=== PATIENT | male | born 1965 | race Caucasian/White ===

== ENCOUNTER → 2025-07-25 05:00 | Outpatient (REF) | payer MEDICARE, SELFPAY ==
--- OUTSIDE RECORDS SUMMARY | 2025-07-25 05:16 | XMS RPT_ITS | CCD ---
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 Unavailable Unavailable Exten, Sb L. Unavailable Unavailable Exten, Sb L. Unavailable Unavailable Exten, Sb L. Unavailable Unavailable Brar, Memo E Unavailable Unavailable Brar, Memo E Unavailable Unavailable Exten, Sb L. Unavailable Unavailable Exten, Sb L. Unavailable Unavailable Kinsey, Riaz S Unavailable Unavailable John, Riaz S Unavailable Unavailable Brar, Memo E Unavailable Unavailable Brar, Memo E Unavailable Unavailable Brar, Memo E Unavailable Unavailable Brar, Memo E Unavailable Unavailable Brar, Memo E Unavailable Unavailable Brar, Memo E Unavailable Unavailable Stadnick, Paulino S Unavailable Unavailable Stadnick, Paulino S Unavailable Unavailable Stadnick, Paulino S Unavailable Unavailable Stadnick, Paulino S Unavailable Unavailable Brar, Memo E Unavailable Unavailable Brar, Memo E Unavailable Unavailable Exten, Sb L. Unavailable Unavailable Exten, Sb L. Unavailable Unavailable Exten, Sb L. Unavailable Unavailable Exten, Sb L. Unavailable Unavailable Brar, Memo E Unavailable Unavailable Brar, Memo E Unavailable Unavailable Exten, Sb L. Unavailable Unavailable Exten, Sb L. Unavailable Unavailable NicolasaNorman gay Primary Care Provider Palmer Givens Primary Care Provider [phone] Palmer Givens Primary Care Provider [phone] [place], Mari Anali. Primary Care Provider [phone] SECOR, MARI Anali Primary Care Unavailable PRASHANTH ARMENTA Attending Unavailable SECOR, MARI Anali Primary Care Unavailable ANYA GIVENS Attending Unavailable SECOR, MARI Briones Primary Care Unavailable GHAZARIAN, TEQUILA Admitting Unavailable GHBLOSSOMARIAN TEQUILA Attending Unavailable [place], Mari Anali. Primary Care Provider [place], Mari Anali Primary Care Provider [place], Mari Anali. Primary Care Provider [phone] Sofía Dukes Unavailable SOFÍA DUKES Referring Unavailab le SECMARY, MARI Anali. Primary Care Unavailable UMBERTO BARNETT Attending Unavailable SECOR, MARI Cary Primary Care Unavailable [place], Mari Anali. Primary Care Provider [place], Mari Anali. Primary Care Provider [place], Mari Anali. Primary Care Provider VENANCIO QUIROS Consulting Unavailab le SECMARY, MARI Anali. Primary Care Unavailable VENANCIO QUIROS Admitting Unavailab le [facility] Attending Un available RACHELLE PRINCE Consulting Unavaila LIZ Tiwari Consulting Unavailable MAYUR HERNANDEZ Consulting Unavailable Sofía Dukes Unavailable [place], Mari Luis Daniel Unavailable Unavailable Primary Care Provider UnavailDIEGO Pena Attending Unavailable Ani Worley CNP Primary Care Provider MATEO, BLANCA PINEDA Admitting Unavaila ble [facility] Consulting Susi glasgow [facility] Attending ANI Greene Primary Care Unavailable PRASHANTH HERCULES Consulting Unavailable RACHELLE PRINCE Consulting Unavaila YOLY Ruiz Consulting Unavaila phoebe Worley APRN-Ani HUSAIN Primary Care Provider Ani Worley CNP Primary Care Provider [place] ENVIRONMENTAL EMERGENCIES PLANNER, Ani M Unavailable Prashanth Hercules MD Unavailable [phone] ZHAO ABRAHAM Attending Unavailable [place] SUSTAINABILITY COORDINATOR-ENVIRONMENTAL EMERGENCIES PLANNER, Ani Primary Care Provider [phone] [place] SUSTAINABILITY COORDINATOR-ENVIRONMENTAL EMERGENCIES PLANNER, Ani Primary Care Provider [phone] [place] [facility], Ani Primary Care Provider [place] ENVIRONMENTAL EMERGENCIES PLANNER, Ani M Unavailable Prashanth Hercules MD Unavailable [phone] DELANY, ANI Primary Care Unavailable SELF, SELF Referring Unavailable HAY, AMI Attending Unavailable DELANY, ANI Primary Care Unavailable SELF, SELF Referring Unavailable HAY, AMI Attending Unavailable DELANY, ANI Primary Care Unavailable BARK, KRISTI E Referring Unavailable RAMON, BRIDGET Attending Unavailable DELANY, ANI Primary Care Unavailable SELF, SELF Attending Unavailable SELF, SELF Referring Unavailable DELANY, ANI Primary Care Unavailable JACKELIN, NATHAN F Referring Unavailable JACKELIN, NATHAN F Attending Unavailable DELANY, ANI Primary Care Unavailable YANE, POWER Admitting Unavailable YANE, POWER Attending Unavailable YANE, POWER Referring Unavailable CONSULT, INFECTIOUS DISEASE Consulting Unav ailable DELANY, ANI Primary Care Unavailable RAMON, BRIDGET Referring Unavailable RAMON, BRIDGET Attending Unavailable SELF, SELF Referring Unavailable HAY, AMI Attending Unavailable DELANY, ANI Primary Care Unavailable DELANY, ANI Primary Care Unavailable SELF, SELF Referring Unavailable HAY, AMI Attending Unavailable DELANY, ANI Primary Care Unavailable SELF, SELF Referring Unavailable HAY, AMI Attending Unavailable DELANY, ANI Primary Care Unavailable SELF, SELF Referring Unavailable HAY, AMI Attending Unavailable DELANY, ANI Primary Care Unavailable SELF, SELF Referring Unavailable HAY, AMI Attending Unavailable DELANY, ANI Primary Care Unavailable JACKELIN, NATHAN F Referring Unavailable AUCKJESSENIA C Attending Unavailable DELANY, ANI Primary Care Unavailable JACKELIN, NATHAN F Referring Unavailable JACKELIN, NATHAN F Attending Unavailable DELANY, ANI Primary Care Unavailable SELF, SELF Referring Unavailable HAY, AMI Attending Unavailable DELANY, ANI Primary Care Unavailable SELF, SELF Referring Unavailable HAY, AMI Attending Unavailable SELF, SELF Referring Unavailable HAY, AMI Attending Unavailable DELANY, ANI Primary Care Unavailable DELANY, ANI Primary Care Unavailable JACKELIN, NATHAN F Referring Unavailable JESSENIA PERRY Attending Unavailable DELANY, ANI Primary Care Unavailable SELF, SELF Referring Unavailable HAY, AMI Attending Unavailable DELANY, ANI Primary Care Unavailable SELF, SELF Referring Unavailable KRISTI BRYAN Attending Unavailable [place], [facility] Primary Care Unavailable RAMON, BRIDGET Attending Unavailable RAMON, BRIDGET Referring Unavailable DEL[place], [facility] Primary Care Unavailable RAMON, BRIDGET Attending Unavailable RAMON, BRIDGET Referring Unavailable DELANY, ANI Primary Care Unavailable SELF, SELF Referring Unavailable HAY, AMI Attending Unavailable DELANY, ANI Primary Care Unavailable SELF, SELF Referring Unavailable HAY, AMI Attending Unavailable DELANY, ANI Primary Care Unavailable SELF, SELF Referring Unavailable HAY, AMI Attending Unavailable DELANY, ANI Referring Unavailable DELANY, ANI Primary Care Unavailable JACKELIN, NATHAN F Attending Unavailable DELANY, ANI Referring Unavailable DELANY, ANI Primary Care Unavailable JACKELIN, NATHAN F Attending Unavailable DELANY, ANI Primary Care Unavailable JACKELIN, NATHAN F Attending Unavailable JACKELIN, NATHAN F Referring Unavailable DELANY, ANI Referring Unavailable DELANY, ANI Primary Care Unavailable JACKELIN, NATHAN F Attending Unavailable DELANY, ANI Primary Care Unavailable SELF, SELF Referring Unavailable HAY, AMI Attending Unavailable DELANY, ANI Primary Care Unavailable SELF, SELF Referring Unavailable HAY, AMI Attending Unavailable DELANY, [facility] Primary Care Unavailable JACKELIN, NATHAN F Referring Unavailable RAMON, BRIDGET Attending Unavailable DELANY, ANI Primary Care Unavailable SELF, SELF Referring Unavailable HAY, AMI Attending Unavailable DELANY, ANI Primary Care Unavailable SELF, SELF Referring Unavailable HAY, AMI Attending Unavailable DELANY, ANI Primary Care Unavailable SELF, SELF Referring Unavailable HAY, AMI Attending Unavailable [place] Ani HUSAIN Primary Care Provider Ani Worley CNP Unavailable [phone] HAY, AMI L Attending Unavailable DELANY, ANI Primary Care Unavailable HAY, AMI L Referring Unavailable DELANY, ANI Primary Care Unavailable TYSHAWN RODRÍGUEZ Admitting Unavailable TYSHAWN RODRÍGUEZ Attending Unavailable TYSHAWN RODRGÍUEZ Referring Unavailable CONSULT, INFECTIOUS DISEASE Consulting Unav ailable HAY, AMI L Referring Unavailable DELANY, ANI Primary Care Unavailable HAY, AMI L Attending Unavailable HAY, AMI L Referring Unavailable HAY, AMI L Attending Unavailable DELANY, ANI Primary Care Unavailable HAY, AMI L Referring Unavailable HAY, AMI L Attending Unavailable DELANY, ANI Primary Care Unavailable HAY, AMI L Referring Unavailable HAY, AMI L Attending Unavailable DELANY, ANI Primary Care Unavailable HAY, AMI L Referring Unavailable HAY, AMI L Attending Unavailable DELANY, ANI Primary Care Unavailable DELANY, ANI Primary Care Unavailable [place] ENVIRONMENTAL EMERGENCIES PLANNER, Ani M Primary Care Provider [place] ENVIRONMENTAL EMERGENCIES PLANNER, Ani M Unavailable DELANY, ANI M Referring Unavailable DELANY, ANI M Primary Care Unavailable KEVAN CORBIN Attending Unavailable KENDRA WILLINGHAM Attending Unavailable DELANY, ANI M Primary Care Unavailable TD MARCUM Attending Unavailable DELANY, ANI M Primary Care Unavailable DELANY, ANI M Primary Care Unavailable ANYA RADFORD II Attending Un available FELIPE RESENDIZ Attending Unavailable DELANY, ANI Primary Care Unavailable DELANY, ANI Primary Care Unavailable REG HARTMAN Attending Unavailable REG HARTMAN Referring Unavailable DELANY, ANI Primary Care Unavailable REG HARTMAN Attending Unavailable REG HARTMAN Referring Unavailable Dr. Reg Hartman Unavailable Unavailable Reg Hartman Attending Unavailable Cecilia Gonzales DPM Sabry Unavailable [phone] Janet SHI Cecilia Sabry Unavailable TAWANDA MORGAN Attending Unavailable DELANY, ANI M Primary Care Unavailable JACKSON AVITIA Attending Unavailab le THOMANY, ANI M Primary Care Unavailable [place] RODRIGUE, Ani M Primary Care Provider [place] ENVIRONMENTAL EMERGENCIES PLANNER, Ani M Unavailable [phone] [place] ENVIRONMENTAL EMERGENCIES PLANNER, Ani M Unavailable [place] ENVIRONMENTAL EMERGENCIES PLANNER, Ani M Primary Care Provider [place] ENVIRONMENTAL EMERGENCIES PLANNER, Ani M Unavailable [phone] [place] ENVIRONMENTAL EMERGENCIES PLANNER, Ani M Unavailable DELANY, ANI M Primary Care Unavailable DANIEL HAMMER Attending Unavail able DELANY, ANI M Referring Unavailable DELANY, ANI M Primary Care Unavailable DELANY, ANI M Admitting Unavailable Luis Daniel CAO III Attending Unavailable MEIR, ANI M Primary Care Unavailable SOFÍA DUKES Attending Unavailab le MEIR, ANI M Primary Care Unavailable SOFÍA DUKES Attending Unavailab le DELNEFTALY, ANI M Primary Care Unavailable SOFÍA DUKES Attending Unavailab le JAENT, CECILIA MAYFIELDRY Admitting Unavailable JANET, CECILIA MAYFIELDRY Attending Unavailable MEIR, ANI M Primary Care Unavailable DOMKA, QUYEN Referring Unavailable JANET, CECILIA SABRY Admitting Unavailable JANET, CECILIA MAYFIELDRY Attending Unavailable MEIR, ANI Burton Primary Care Unavailable DELANY, ANI M Primary Care Unavailable DURAIRAJ, KRYS Admitting Unavailable LEOBARDO, ANVITA Referring Unavailable LEOBARDO, ANVITA Attending Unavailable MEIR, ANI M Primary Care Unavailable JANET, CECILIA SABRY Admitting Unavailable JANET, CECILIA MAYFIELDRY Attending Unavailable JANET, CECILIA SABRY Admitting Unavailable JANET, CECILIA MAYFIELDRY Attending Unavailable MEIR, ANI Burton Primary Care Unavailable CAMERON VARGAS Attending Unavailable [facility] Consulting Unavai pee WORLEY, ANI Burton Primary Care Unavailable ARBEN PARRISH Admitting Unavailable ACOSTA VALLEJO Admitting Unavailable SOFÍA DUKES Consulting Unavailab le MEIR, ANI Burton Primary Care Unavailable ARBEN PARRISH Attending Unavailable KINZA GARRETT Consulting Unavaila ble PRASHANTH HERCULES Consulting Unavailable REMA GENTILE Consulting Unavailable [facility] Consulting UnaKANCHAN Correia Attending Unavailable MEIR, ANI M Primary Care Unavailable SHANAE NUNEZ Admitting Unavailable MEIR, ANI M Primary Care Unavailable PRASHANTH HERCULES Consulting Unavailable STEPHENIRAJ, KRYS Admitting Unavailable LUPE PARRISH Attending Unavailable CAROLYN CASIANO Attending UnavailSOFÍA Mahan Consulting Unavailab le MEIR, ANI M Primary Care Unavailable CARMEN CHARLES Admitting Unavai lable [facility] Consulting SOFÍA Wilcox Attending Unavailab SOFÍA Martin Admitting Unavailab le MEIR, ANI M Primary Care Unavailable JANTE, CECILIA SABRY Referring Unavailable CECILIA GONZALES Attending Unavailable ANI WORLEY Primary Care Unavailable CECILIA GONZALES Admitting Unavailable CECILIA GONZALES Attending Unavailable ANI WORLEY Primary Care Unavailable Allergies Allergy Classification Reported Allergen(s) Allergy Type Date of Onset Reaction(s) Facility (14 sources) Naloxone; Translations: [NALOXONE] Drug Allergy 05-09-2025 Unknown [facility] Medications Current Medications Medication Drug Class(es) Dates Sig (Normalized) Sig (Original) albuterol 108 (90 Base) MCG/ACT Aero Soln inhaler (4 sources) Start: 07-14-2020 take 1 puff(s) by inhalation every six hours as needed for wheezing albuterol 108 (90 Base) MCG/ACT Aero Soln inhaler Indications: Chronic obstructive pulmonary disease with acute exacerbation Inhale 1 puff every 6 hours as needed for Wheezing. 1 Inhaler 2 07/14/2020 Active Start: 04-08-2020 End: 07-14-2020 take 1 puff(s) by inhalation every six hours as needed for wheezing albuterol 108 (90 Base) MCG/ACT Aero Soln inhaler Indications: Chronic obstructive pulmonary disease, unspecified COPD type Inhale 1 puff every 6 hours as needed for Wheezing. 1 Inhaler 2 04/08/2020 07/14/2020 Discontinued (Reorder) Start: 08-23-2019 take 1 puff(s) by in halation every six hours as needed for wheezing albuterol 108 (90 Base) MCG/ACT Aero Soln inhaler Indications: Chronic obstructive pulmonary disease, unspecified COPD type Inhale 1 puff every 6 hours as needed for Wheezing. 1 Inhaler 0 08/23/2019 Active albuterol 90 mcg/actuation inhaler (5 sources) Start: 08-01-2020 take 2 puff(s) by inhalation every six hours as needed for wheezing albuterol 90 mcg/actuation inhaler Inhale 2 (two) puffs every 6 (six) hours as needed for wheezing . 1 Inhaler 0 08/01/2020 Active Start: 08-01-2020 End: 08-31-2020 take 2 puff(s) by inhalation every six hours as needed for wheezing albuterol 90 mcg/actuation inhaler Inhale 2 (two) puffs every 6 (six) hours as needed for wheezing . 1 Inhaler 0 08/01/2020 08/31/2020 Active Start: 05-20-2020 take 1 puff(s) by mo uth every six hours as needed for wheezing albuterol 90 mcg/actuation inhaler INHALE 1 PUFF BY MOUTH EVERY 6 HOURS NEEDED FOR wheezing 0 05/20/2020 Active Albuterol Sulfate Nebulization Solution (2.5 MG/3ML) 0.083% (1 source) Start: 10-10-2023 Albuterol Sulfate Nebulization Solution (2.5 MG/3ML) 0.083% 2.5 mg Nebulization Solution Inhalation 2.5 mg inhale orally via nebulizer every 6 hours as needed for Shortness of Breath 10/10/2023 19:09:00 Ammonium Lactate External Cream 12 % (1 source) Start: 10-13-2023 Ammonium Lactate External Cream 12 % Cream External APPLY TO BILATERAL LEGS TOPICALLY EVERY DAY SHIFT FOR WOUND CARE 10/13/2023 6:00:00 amoxicillin 875 mg / clavulanate 125 mg oral tablet (4 sources) Penicillin-class Antibacterial Start: 03-31-2023 End: 04-10-2023 take 1 tablet by mouth every twelve hours Amoxicillin-clavul anate 875-125 MG tablet Take 1 tablet by mouth every 12 hours for 10 days. 20 tablet 0 03/31/2023 04/10/2023 Active Start: 03-15-2023 End: 03-25-2023 take 1 tablet by mouth twice daily Amoxicillin-clavulanate 500-125 MG table t Indications: Wound of right lower extremity, subsequent encounter Take 1 tablet by mouth 2 times daily for 10 days. 20 tablet 0 03/15/2023 03/21/2023 Discontinued (Stop Taking at Discharge) azithromycin 500 mg oral tablet (11 sources) Macrolide Antimicrobial Start: 07-05-2024 End: 07-08-2024 take 1 tablet by mouth once daily azithromycin (ZITHROMAX) 500 MG tablet Take 1 (one) tablet (500 mg total) by mouth daily for 3 days Start: 07/05/24. 3 tablet 07/05/2024 07/08/2024 Active Start: 07-03-2024 End: 07-05-2024 take 500 mg by mouth once daily 500 mg, Oral, Daily, First dose on Tue07/03/24 at 0900, For 7 doses, Indication: Respiratory Tract Infection Start: 12-03-2020 End: 12-03-2020 azithromycin (ZITHROMAX) tab let 500 mg Start: 08-01-2020 End: 04-21-2022 azithromycin (ZITHROMAX) 250 MG tablet 2 tabs day 1 and 1 daily TG . 6 tablet 0 08/01/2020 04/21/2022 Discontinued (Stop Taking at Discharge) Start: 07-08-2020 End: 07-08-2020 take 500 mg by mouth once 500 mg, Oral, Once, 06/22 at 0230, For 1 dose Indication: COPD Exacerbation Benadryl Allergy Oral Tablet 25 MG (1 source) Start: 12-31-2023 take 2 tablets by mouth at bedtime Benadryl Allergy Oral Tablet 25 MG 2 tablet Tablet Oral Give 2 tablet by mouth at bedtime for itching give two tabs to = 50mg 12/31/2023 20:00:00 60 actuat budesonide 0.16 mg/actuat / formoterol fumarate 0.0045 mg/actuat metered dose inhaler (20 sources) Corticosteroid, beta2-Adrenergi c Agonist Start: 03-11-2023 End: 04-10-2023 take 2 puff(s) by inhalation every twelve hours Symbicort 160-4.5 MCG/ACT Aerosol inhaler Inhale 2 puffs every 12 hours. 10.2 g 1 03/11/2023 Active Start: 02-05-2023 take 2 puff(s) by mo uth twice daily Symbicort 160-4.5 MCG/ACT Aerosol inhaler INHALE 2 PUFFS BY MOUTH TWICE DAILY 0 02/05/2023 Suspended Start: 04-23-2022 End: 12-14-2022 take 2 puff(s) by mouth twice daily Symbicort 160-4.5 MCG/ACT Aerosol inhaler INHALE 2 PUFFS BY MOUTH TWICE DAILY 0 04/23/2022 12/14/2022 Discontinued Start: 04-20-2022 End: 04-21-2022 take 2 puff(s) by inhalation twice daily 2 puff, Inhalation, 2 times daily (RT), First dose on Tue04/20/22 at 2100 SPACER REQUIRED FOR ADMINISTRATION Start: 09-17-2021 take 2 puff(s) by in halation twice daily Symbicort 160-4.5 mcg/actuation inhaler Inhale 2 (two) puffs 2 (two) times a day . 09/17/2021 Active Start: 09-17-2021 Start: 12-03-2020 End: 12-04-2020 take 2 puff(s) by inhalation twice daily 2 puff, Inhalation, 2 times daily (RT), First dose on Tue12/03/20 at 2000 SPACER REQUIRED FOR ADMINISTRATION End: 04-05-2025 take 2 puff(s) by inhalation twice daily budesonide-formoteroL (SYMBICORT) 160-4.5 mcg/actuation inhaler Inhale 2 (two) puffs 2 (two) times a day . 04/05/2025 Discontinued (Stop Taking at Discharge) Buprenorphine HCl Sublingual Tablet Sublingual 2 MG (1 source) Start: 05-18-2024 take 1 tablet under the tongue in the morning Buprenorphine HCl Sublingual Tablet Sublingual 2 MG 2 tablet Tablet Sublingual Sublingual Give 2 tablet sublingually in the morning for pain 05/18/2024 8:00:00 Buprenorphine HCl Sublingual Tablet Sublingual 8 MG (3 sources) Start: 05-18-2024 take 1 tablet under the tongue twice daily for pain Buprenorphine HCl Sublingual Tablet Sublingual 8 MG 1 tablet Tablet Sublingual Sublingual Give 1 tablet sublingually two times a day for pain 05/18/2024 8:00:00 Start: 03-28-2024 End: 05-18-2024 Buprenorphine HCl Sublingual Tablet Sublingual 8 MG 2.5 tablet Tablet Sublingual Sublingual 2.5 TABS DAILY-ICD10 CODE [id number] TO NALOXONE. 03/28/2024 8:00:00 05/18/2024 7:48:00 Aborted Start: 02-22-2024 End: 03-27-2024 Buprenorphine HCl Sublingual Tablet Sublingual 8 MG 2 tablet Tablet Sublingual Sublingual 2.5 TABS DAILY-ICD10 CODE [id number] TO NALOXONE. 02/22/2024 8:00:00 03/27/2024 9:35:00 Aborted Buprenorphine HCl-Naloxone HCl (SUBOXONE SL) (1 source) Buprenorphine HCl-Naloxone HCl (SUBOXONE SL) Place under the tongue 0 Active cefdinir 300 mg oral capsule (2 sources) Cephalosporin Antibacterial Start: 01-26-20 End: 02-02-20 take 1 capsule by mouth every twelve hours Cefdinir (OMNICEF) 300 MG capsule Take 1 capsule by mouth every 12 hours for 7 days. 14 capsule 0 01/25/2023 02/01/2023 Active cephalexin 500 mg oral capsule (13 sources) Cephalosporin Antibacterial Start: 05-16-20 End: 06-27-20 take 1 capsule by mouth four times daily cephALEXin (KEFLEX) 500 MG capsule Take 1 (one) capsule (500 mg total) by mouth 4 (four) times a day . 168 capsule 05/16/2025 06/27/2025 Active Start: 05-09-2024 End: 05-16-2024 take 1 tablet by mouth three times daily Cephalexin Oral Tablet 500 MG 1 tablet Tablet Oral Give 1 tablet by mouth three times a day related to CELLULITIS OF RIGHT LOWER LIMB (L03.115) for 7 Days 05/09/2024 14:00:00 05/16/2024 13:59:00 Completed Start: 08-19-2023 End: 08-29-2023 take 1 capsule by mouth four times daily cephALEXin (KEFLEX) 500 MG capsule Take 1 (one) capsule (500 mg total) by mouth 4 (four) times a day for 10 days . 20 capsule 0 08/19/2023 08/29/2023 Active Start: 08-03-2023 End: 08-06-2023 take 500 mg by mouth every six hours 500 mg, Oral, Every 6 hours scheduled, First dose on Tue08/03/23 at 1530 Indication: Skin/Soft Tissue Infection Start: 04-21-2022 End: 05-01-2022 take 1 capsule by mouth four times daily cephALEXin (KEFLEX) 500 MG capsule Take 1 (one) capsule (500 mg total) by mouth 4 (four) times a day for 10 days . 40 capsule 0 04/21/2022 05/01/2022 Active ciprofloxacin 500 mg oral tablet (1 source) Quinolone Antimicrobial take 1 tablet by mouth twice daily ciprofloxacin (CIPRO) 500 MG tablet Take 500 mg by mouth 2 times daily 0 Active Combivent Respimat Inhalation Aerosol Solution 20-100 MCG/ACT (1 source) Start: 2023 take 20-100 ug by mouth every four hours as needed Combivent Respimat Inhalation Aerosol Solution 20-100 MCG/ACT 1 puff Aerosol Solution Inhalation 1 puff inhale orally every 4 hours as needed for COPD 10/10/2023 19:15:00 cyclobenzaprine hydrochloride 10 mg oral tablet (18 sources) Muscle Relaxant Start: 2019 End: 2019 take 1 tablet by mouth three times daily as needed for muscle spasms cyclobenzaprine (FLEXERIL) 10 MG tablet Take 1 (one) tablet (10 mg total) by mouth 3 (three) times a day as needed for muscle spasms . 30 tablet 0 01/08/2020 01/18/2020 Active doxycycline hyclate 100 mg oral tablet (5 sources) Tetracycline-class Drug Start: 2024 End: 2024 take 1 tablet by mouth twice daily doxycycline hyclate (VIBRA-TABS) 100 MG tablet Take 1 (one) tablet (100 mg total) by mouth 2 (two) times a day . 84 tablet 05/16/2025 06/27/2025 Active Drug or medicament (substance) (2 sources) Start: 2022 End: 2022 ferrous sulfate (1 source) Start: 2023 take 1 tablet by mouth twice daily Ferrous Sulfate Oral Tablet 325 (65 Fe) MG 1 tablet Tablet Oral Give 1 tablet by mouth two times a day for low iron 12/10/2023 8:00:00 fluticasone / salmeterol (16 sources) Corticosteroid, beta2-Adrenergic Agonist Start: 2024 take 1 puff(s) by inhalation twice daily fluticasone propion-salmeteroL (ADVAIR DISKUS) 250-50 mcg/dose diskus inhaler Inhale 1 (one) puff 2 (two) times a day . 03/18/2025 Active Start: 03-18-2025 take 1 puff(s) by in halation twice daily fluticasone propion-salmeteroL (ADVAIR DISKUS) 250-50 mcg/dose diskus inhaler Inhale 1 (one) puff 2 (two) times a day . 03/18/2025 Start: 03-17-2023 End: 03-22-2023 take 2 puff(s) by inhalation twice daily 2 puff, Inhalation, 2 TIMES DAILY, First dose on Rama 03/17/23 at 1900, Until Discontinued 120 actuat formoterol fumarate 0.0048 mg/actuat / glycopyrrolate 0.009 mg/actuat metered dose inhaler (20 sources) beta2-Adrenergic Agonist Start: 01-23-2020 End: 07-14-2020 Glycopyrrolate-Formoterol (Bevespi Aerosphere) 9-4.8 MCG/ACT Aerosol Indications: Chronic obstructive pulmonary disease with acute exacerbation Inhale 2 puffs 2 times daily. 1 Inhaler 11 07/14/2020 Active furosemide 40 mg oral tablet (20 sources) Loop Diuretic Start: 05-16-2025 End: 06-15-2025 take 1 tablet by mouth twice daily furosemide (LASIX) 40 MG tablet Take 1 (one) tablet (40 mg total) by mouth 2 (two) times a day . 60 tablet 05/16/2025 Active Start: 05-12-2025 End: 05-16-2025 40 mg, Intravenous, Every 12 hours scheduled, First dose on Tue05/13/25 at 1800, Administer IV push at 20 mg per minute (doses higher than 100 mg require IVPB) Start: 04-02-2025 40 mg, Intrave nous, Once, On Tue04/02/25 at 1630, For 1 dose, Administer IV push at 20 mg per minute (doses higher than 100 mg require IVPB) Start: 02-21-2025 End: 05-16-2025 take 1 tablet by mouth once daily furosemide (LASIX) 4 0 MG tablet Take 1 (one) tablet (40 mg total) by mouth daily . 30 tablet 02/21/2025 05/16/2025 Discontinued Start: 10-22-2024 End: 10-24-2024 40 mg, Intravenous, Every 8 hours scheduled, First dose (after last modification) on Tue10/22/24 at 2200, Administer IV push at 20 mg per minute (doses higher than 100 mg require IVPB) Start: 10-18-2024 End: 10-22-2024 40 mg, Intravenous, 2 times daily, First dose (after last modification) on Rama 10/18/24 at 1800, Administer IV push at 20 mg per minute (doses higher than 100 mg require IVPB) Start: 10-16-2024 40 mg, Intrave nous, Once, On Tue10/16/24 at 2315, For 1 dose, Administer IV push at 20 mg per minute (doses higher than 100 mg require IVPB) Start: 07-03-2024 End: 01-22-2025 take 1 tablet by mouth twice daily in the evening furosemide (LASIX) 40 MG tablet Take 1 (one) tablet (40 mg total) by mouth 2 (two) times a day . 60 tablet 2 10/24/2024 1:24 PM EST 10/24/2024 01/22/2025 Active Start: 07-02-2024 End: 07-03-2024 20 mg, Intravenous, Every 8 hours scheduled, First dose on Tue07/02/24 at 2220, For 2 doses, Administer IV push at 20 mg per minute (doses higher than 100 mg require IVPB) Start: 07-02-2024 End: 07-02-2024 20 mg, Intravenous, Once, On Tue07/02/24 at 1510, For 1 dose, Administer IV push at 20 mg per minute (doses higher than 100 mg require IVPB) Start: 04-17-2024 take 2 tablets by mo uth twice daily for edema Furosemide Tablet 20 MG 2 tablet Tablet Oral Give 2 tablet by mouth two times a day for Edema 04/17/2024 20:00:00 Start: 10-10-2023 End: 07-02-2024 take 1 tablet by mouth twice daily for edema Furosemide Tablet 20 MG 1 tablet Tablet Oral GIVE 1 TABLET BY MOUTH TWO TIMES A DAY FOR EDEMA 10/10/2023 20:00:00 04/16/2024 21:31:00 Aborted Start: 03-16-2023 End: 03-20-2023 take 40 mg intravenously every twenty-four hours furOSEmide (LASIX) injection 40 mg Start: 11-15-2021 End: 03-22-2023 furOSEmide (LASIX) tablet 40 mg Start: 11-14-2021 End: 11-15-2021 furOSEmide (LASIX) injection 40 mg Start: 07-07-2020 End: 07-09-2020 furosemide (LASIX) injection 40 mg Start: 07-07-2020 End: 07-07-2020 furosemide (LASIX) injection 20 mg Start: 10-30-2019 End: 09-03-2020 take 1 tablet by mouth once daily furOSEmide (Lasix) 2 0 MG tablet Indications: Essential hypertension Take 1 tablet by mouth daily. 30 tablet 0 07/14/2020 09/03/2020 Discontinued 12 hr guaiFENesin 600 mg extended release oral tablet (1 source) Start: 11-06-2019 take 600 mg by mouth twice daily 600 mg, Oral, 2 TIMES DAILY, First dose on Tue11/06/19 at 0900 Do not crush or break. ibuprofen 800 mg oral tablet (20 sources) Nonsteroidal Anti-inflammatory Drug Start: 05-06-2022 ibuprofen 800 MG tablet Start: 02-02-2021 End: 02-07-2021 take 1 tablet by mouth every eight hours as needed ibuprofen (ADVIL,MOTRIN) 600 MG tablet Take 1 (one) tablet (600 mg total) by mouth every 8 (eight) hours as needed for pain . 15 tablet 0 02/02/2021 02/07/2021 Active Start: 05-15-2018 End: 01-03-2020 take 1 tablet by mouth every eight hours as needed for pain ibuprofen (ADVIL,MOTRIN) 600 MG tablet 1 PO q 8 hours PRN pain. Discontinue if GI upset/distress and notify provider.. 90 tablet 0 05/15/2018 01/03/2020 Discontinued take 1 tablet by gianna th every six hours as needed for pain ibuprofen (ADVIL;MOTRIN) 800 MG tablet Take 800 mg by mouth every 6 hours as needed for Pain. 0 Active levoFLOXacin 500 mg oral tablet (9 sources) Quinolone Antimicrobial Start: 04-21-2022 levoFLOXacin 500 MG tablet Start: 07-07-2020 End: 07-08-2020 levoFLOXacin (LEVAQUIN) IVPB 750 mg (premix) Start: 11-06-2019 levofloxacin ( LEVAQUIN) 500 MG/100ML infusion 500 mg lisinopril 40 mg oral tablet (20 sources) Angiotensin Converting Enzyme Inhibitor Start: 12-30-2024 take 1 tablet by mouth once daily lisinopriL (PRINIVIL,ZESTRIL) 40 MG tablet Take 1 (one) tablet (40 mg total) by mouth daily . 12/30/2024 Active Start: 03-19-2021 End: 04-21-2022 take 1 tablet by mouth once daily lisinopriL (PRINIVIL,ZESTRIL) 40 MG tablet Take 40 mg by mouth daily . 0 06/02/2021 04/21/2022 Discontinued (Stop Taking at Discharge) Start: 06-30-2020 End: 09-03-2020 take 1 tablet by mouth once daily lisinopril 40 MG tablet Indications: Essential hypertension Take 1 tablet by mouth daily. 30 tablet 3 06/30/2020 09/03/2020 Discontinued (Reorder) Start: 10-30-2019 take 1 tablet by gianna th once daily lisinopril 40 MG tablet Indications: Essential hypertension Take 1 tablet by mouth daily. 30 tablet 0 10/30/2019 Active Start: 02-20-2018 End: 11-23-2022 take 1 tablet by mouth once daily lisinopril 20 MG tablet Indications: Essential hypertension Take 1 tablet by mouth daily. 30 tablet 2 10/21/2020 11/23/2022 Discontinued Naloxone (20 sources) Opioid Antagonist Start: 10-10-2023 Naloxone HCl Nasal Liquid 1 spray Liquid Nasal 1 SPRAY IN NOSTRIL NEEDED FOR OPIOID OVERDOSE ADMINISTER 1 SPRAY INTO ONE NOSTRIL FOR KNOWN OR SUSPECTED OPIOID OVERDOSE, IF PATIENT WORSENS OR DOES NOT RESPOND, MAY REPEAT IN 2-3 MINUTES. 10/10/2023 19:30:00 Start: 06-09-2023 naloxone (NARC AN) 4 mg/actuation [place] Administer 1 spray into one nostril for known or suspected opioid overdose. If patient worsens or does not respond, may repeat in 2-3 minutes. . 2 each 1 06/09/2023 Active Start: 06-09-2023 Start: 11-12-2021 End: 11-12-2021 naloxone (NARCAN) injection 0.4 mg naloxone (NARCAN) 4 mg/actua tion [place] (20 sources) Start: 05-16-2025 naloxone (NARC AN) 4 mg/actuation [place] Administer 1 spray into one nostril for known or suspected opioid overdose. If patient worsens or does not respond, may repeat in 2-3 minutes. . 2 each 05/16/2025 Active Start: 05-16-2025 naloxone (NARC AN) 4 mg/actuation [place] Administer 1 spray into one nostril for known or suspected opioid overdose. If patient worsens or does not respond, may repeat in 2-3 minutes. . 2 each 05/16/2025 Start: 06-09-2023 naloxone (NARC AN) 4 mg/actuation [place] Administer 1 spray into one nostril for known or suspected opioid overdose. If patient worsens or does not respond, may repeat in 2-3 minutes. . 2 each 1 06/09/2023 Suspended Start: 06-09-2023 naloxone (NARC AN) 4 mg/actuation [place] Administer 1 spray into one nostril for known or suspected opioid overdose. If patient worsens or does not respond, may repeat in 2-3 minutes. . 2 each 1 06/09/2023 Active Start: 06-09-2023 naloxone (NARC AN) 4 mg/actuation [place] Administer 1 spray into one nostril for known or suspected opioid overdose. If patient worsens or does not respond, may repeat in 2-3 minutes. . 2 each 1 06/09/2023 60 actuat olodaterol 0.0025 mg/actuat / tiotropium 0.0025 mg/actuat metered dose inhaler (20 sources) Anticholinergic, beta2-Adrenergic Agonist Start: 11-06-2018 tiotropium bromide-olodaterol (STIOLTO RESPIMAT) 2.5-2.5 MCG/ACT Aero Soln inhaler Indications: Chronic obstructive pulmonary disease, unspecified COPD type Inhale 2 puffs daily. 1 Inhaler 11 11/06/2018 Active Start: 12-22-2017 End: 11-06-2018 tiotropium-olodaterol (STIOL TO) 2.5-2.5 mcg/actuation Mist respimat inhaler Inhale 2.5 mcg daily. 0 12/22/2017 Active Omeprazole 20 MG Capsule delayed release (1 source) Start: 10-11-2023 take 1 capsule by mouth once daily Omeprazole 20 MG Capsule delayed release 1 tablet Capsule Delayed Release Oral TAKE ONE CAPSULE BY MOUTH ONCE DAILY DO NOT TI IF ALSO ON CLOPIDOGREL 10/11/2023 8:00:00 oseltamivir 75 mg oral capsule (1 source) Neuraminidase Inhibitor Start: 11-06-2019 End: 11-11-2019 take 75 mg by mouth twice daily 75 mg, Oral, 2 TIMES DAILY, First dose on Tue11/06/19 at 0900, For 5 days oxyCODONE hydrochloride 5 mg oral tablet (20 sources) Opioid Agonist Start: 06-28-2025 End: 07-01-2025 take 1 tablet by mouth every six hours as needed for pain oxyCODONE (ROXICODONE) 5 MG immediate release tablet Indications: Abscess of knee, right , History of total right knee replacement Take 1 (one) tablet (5 mg total) by mouth every 6 (six) hours as needed for pain . 12 tablet 06/28/2025 07/01/2025 Active Start: 05-16-2025 End: 05-19-2025 oxyCODONE (ROXICODONE) 5 MG immediate release tablet Indications: Open wound of right knee, leg, and ankle, initial encounter Take 1 (one) tablet (5 mg total) by mouth every 6 (six) hours as needed for pain (Days supply per fill: 3) . 12 tablet 05/16/2025 05/19/2025 Active Start: 05-12-2025 End: 05-16-2025 take 1 tablet by mouth every four hours as needed 5 mg, Oral, Every 4 hours PRN, moderate to severe pain, Starting on Tue05/12/25 at 0604, Start: 07-29-2023 End: 08-11-2023 take 1 tablet by mouth every four hours as needed 10 mg, Oral, Every 4 hours PRN, moderate to severe pain, Starting on Tue07/29/23 at 1946 Start: 07-09-2023 End: 08-14-2023 Start: 06-10-2023 End: 08-11-2023 Start: 06-10-2023 End: 06-13-2023 oxyCODONE (ROXICODONE) 5 MG immediate release tablet Indications: Skin ulcer of left lower leg, unspecified ulcer stage (HCC) Take 3 (three) tablets (15 mg total) by mouth every 8 (eight) hours as needed for pain (Days supply per fill: 3) . 12 tablet 0 06/10/2023 06/13/2023 Start: 01-08-2020 End: 01-22-2020 take 1 tablet by mouth every four hours as needed oxyCODONE (ROXICODONE) 5 MG immediate release tablet Indications: S/P total knee arthroplasty, right Take 1 (one) tablet (5 mg total) by mouth every 4 (four) hours as needed 7 days Start: 01/15/20. 40 tablet 0 01/15/2020 01/22/2020 Active Start: 01-08-2020 End: 01-08-2020 take 5-10 mg by mouth every three hours as needed 5-10 mg, Oral, Every 3 hours PRN, moderate to severe pain, Starting Tue01/08/20 at 1042 [] Initiate with 5 mg oral every 3 hours prn moderate to severe pain. [] For unrelieved pain, may repeat 5 mg oral dose within 60 minutes of initial dose. [] If pain is RELIEVED after repeat dose, change to 10 mg oral every 3 hours prn moderate to severe pain. [] If pain is UNrelieved after repeat dose, or patient requires dose reduction, call physician. [] If multiple routes are ordered for pain meds, it is recommended that oral be the first choice, IV the second choice, rectal the third choice, and IM the fourth choice. piperacillin-tazobactam (ZOS YN) 3.375 g in dextrose 5 % 50 mL IVPB extended infusion (mini-bag) (1 source) Start: 11-06-2019 3.375 g, Intravenous, at 12.5 mL/hr, Administer over 4 Hours, EVERY 8 HOURS, First dose on Tue11/06/19 at 0600 polyethylene glycol 3350 170 00 mg powder for oral solution (12 sources) Osmotic Laxative Start: 01-08-2020 End: 01-15-2020 polyethylene glycol (MIRALAX) 17 gram powder Take 17 (seventeen) g by mouth daily for 7 days . 255 g 0 01/08/2020 01/15/2020 Active Start: 11-06-2019 17 g, Oral, DA KENDRA PRN, Constipation, Starting Tue11/06/19 at 0529 First line therapy for constipation Promethazine (1 source) Phenothiazine Start: 11-06-2019 promethazine (PHENERGAN) tablet 12.5 mg sertraline 50 mg oral tablet (1 source) Serotonin Reuptake Inhibitor Start: 10-21-2023 take 1 tablet by mouth once daily Sertraline HCl Oral Tablet 50 MG 1 tablet Tablet Oral GIVE 1 TABLET BY MOUTH ONE TIME A DAY RELATED TO ANXIETY DISORDER, UNSPECIFIED (F41.9) 10/21/2023 8:00:00 spironolactone 25 mg oral tablet (20 sources) Aldosterone Antagonist Start: 10-16-2024 End: 10-24-2024 take 50 mg by mouth once daily 50 mg, Oral, Daily, First dose on Tue10/16/24 at 1305, CATEGORY C HAZARDOUS DRUG use safe handling precautions. Use reference link to view PPE guidelines. Minimize crushing/splitting only to situations where clinically necessary. Start: 07-03-2024 End: 07-05-2024 take 50 mg by mouth once daily 50 mg, Oral, Daily, Fir st dose on Tue07/03/24 at 0900, CATEGORY C HAZARDOUS DRUG use safe handling precautions. Use reference link to view PPE guidelines. Minimize crushing/splitting only to situations where clinically necessary. Start: 10-11-2023 take 1 tablet by gianna th in the morning for hypertension Spironolactone Tablet 50 MG 1 tablet Tablet Oral GIVE 1 TABLET BY MOUTH IN THE MORNING FOR HYPERTENSION 10/11/2023 8:00:00 Start: 10-09-2023 End: 01-22-2025 take 2 tablets by mouth once daily in the evening spironolactone (ALDACTONE) 25 MG tablet Take 2 (two) tablets (50 mg total) by mouth daily . 60 tablet 2 10/24/2024 1:24 PM EST 10/24/2024 01/22/2025 Active Start: 11-15-2021 End: 12-15-2021 take 1 tablet by mouth once daily spironolactone 25 MG tablet Take 1 tablet by mouth daily. 30 tablet 0 11/15/2021 Suspended sulfamethoxazole 800 mg / trimethoprim 160 mg oral tablet (19 sources) Dihydrofolate Reductase Inhibitor Antibacterial, Sulfonamide Antimicrobial Start: 12-31-2024 sulfamethoxazole-trimethopri m (BACTRIM DS,SEPTRA DS) 800-160 mg per tablet 2 (two) times a day . 12/31/2024 Active Start: 08-03-2023 End: 08-06-2023 take 1 tablet by mouth every twelve hours 1 tablet, Oral, Every 12 hours scheduled, First dose on Tue08/03/23 at 2100 Indication: Skin & Soft Tissue Infection Start: 04-15-2023 End: 05-15-2023 take 1 tablet by mouth twice daily Sulfamethoxazole-trimethoprim 400-80 MG per tablet Take 1 tablet by mouth 2 times daily. 60 tablet 0 04/15/2023 05/15/2023 Active Start: 04-06-2023 End: 04-13-2023 take 1 tablet by mouth twice daily Sulfamethoxazole-trimethoprim 800-160 MG per tablet Indications: Wound of right lower extremity, subsequent encounter Take 1 tablet by mouth 2 times daily for 7 days. 14 tablet 0 04/06/2023 04/13/2023 Active Start: 04-06-2022 sulfamethoxazo le-trimethoprim 800-160 MG per tablet Start: 04-06-2022 take 1 tablet by gianna th twice daily sulfamethoxazole-trimethoprim 800-160 MG per tablet TAKE 1 TABLET BY MOUTH TWICE DAILY FOR 10 DAYS 0 04/06/2022 Active Start: 01-23-2020 End: 02-02-2020 take 1 tablet by mouth twice daily sulfamethoxazole-trimethoprim (Bactrim) 400-80 mg per tablet Take 1 (one) tablet by mouth 2 (two) times a day for 10 days . 20 tablet 0 01/23/2020 02/02/2020 Active Symbicort Inhalation Aerosol 160-4.5 MCG/ACT (1 source) Start: 10-10-2023 take 2 puff(s) by mouth twice daily for chronic obstructive pulmonary disease Symbicort Inhalation Aerosol 160-4.5 MCG/ACT 2 puff Aerosol Inhalation 2 PUFF INHALE ORALLY TWO TIMES A DAY FOR COPD 10/10/2023 20:00:00 tamsulosin hydrochloride 0.4 mg oral capsule (11 sources) alpha-Adrenerg ic Emily Start: 05-18-2022 take 1 capsule by mouth once daily Tamsulosin HCl 0.4 MG capsule Take 1 capsule by mouth daily. 0 05/18/2022 Active Tiazac Oral Capsule Extended Release 24 Hour 240 MG (1 source) Start: 10-11-2023 take 1 capsule by mouth every twenty-four hours in the morning Tiazac Oral Capsule Extended Release 24 Hour 240 MG 1 capsule Capsule Extended Release 24 Hour Oral GIVE 1 CAPSULE BY MOUTH IN THE MORNING FOR HTN 10/11/2023 8:00:00 vancomycin (VANCOCIN) 1,750 mg in dextrose 5 % 500 mL IVPB (1 source) Start: 11-06-2019 vancomycin (VANCOCIN) 1,750 mg in dextrose 5 % 500 mL IVPB vancomycin (VANCOCIN) intermittent dosing (placeholder) (1 source) Start: 11-06-2019 vancomycin (VANCOCIN) intermittent dosing (placeholder) Ventolin HFA Inhalation Aerosol Solution 108 (90 Base) MCG/ACT (1 source) Start: 10-10-2023 take 2 puff(s) by mouth every six hours as needed for chronic obstructive pulmonary disease Ventolin HFA Inhalation Aerosol Solution 108 (90 Base) MCG/ACT 2 puff Aerosol Solution Inhalation 2 PUFF INHALE ORALLY EVERY 6 HOURS NEEDED FOR COPD 10/10/2023 19:15:00 Completed/Discontinued Medications Medication Drug Class(es) Dates Sig (Normalized) Sig (Original) acetaminophen 325 mg oral tablet (20 sources) Start: 05-12-2025 End: 05-16-2025 take 1 tablet by mouth every four hours as needed for pain and headache 650 mg, Oral, Every 4 hours PRN, mild pain, fever 100.4 F or greater, headaches, Starting on Tue05/12/25 at 0604 Start: 04-02-2025 End: 04-05-2025 take 1 tablet by mouth every four hours as needed for pain and headache 650 mg, Oral, Every 4 hours PRN, mild pain, fever 100.4 F or greater, headaches, Starting on Tue04/02/25 at 1836 Start: 10-16-2024 End: 10-24-2024 take 1 tablet by mouth every six hours as needed for pain 650 mg, Oral, Every 6 hours PRN, mild pain, Starting on Tue10/16/24 at 0011 Start: 07-02-2024 End: 07-05-2024 take 1 tablet by mouth every four hours as needed for pain and headache Start: 03-16-2023 End: 03-22-2023 take 1 tablet by mouth every four hours as needed Acetaminophen (TYLENOL) tablet 650 mg Start: 04-21-2022 End: 04-21-2022 take 1 tablet by mouth every six hours as needed for headache acetaminophen (TYLENOL) tablet 650 mg Start: 11-13-2021 End: 11-15-2021 take 325-650 mg by mouth every four hours as needed 325-650 mg, Oral, EVERY 4 HOURS NEEDED, Starting on Tue11/13/21 at 0855, Until 11/15/21 at 1419, Mild Pain Maximum dose of acetaminophen is 4000 mg from all sources in 24 hours. Start: 02-02-2021 End: 02-02-2021 acetaminophen (TYLENOL) tabl et 975 mg Start: 12-03-2020 End: 12-04-2020 take 1 tablet by mouth every four hours as needed 650 mg, Oral, Every 4 hours PRN, mild pain, Starting Tue12/03/20 at 1549 Start: 07-08-2020 End: 07-09-2020 take 1 tablet by mouth every four hours as needed acetaminophen (TYLENOL) tablet 650 mg Start: 01-08-2020 End: 01-18-2020 take 2 tablets by mouth every four hours acetaminophen (TYLENOL) 325 MG tablet Take 2 (two) tablets (650 mg total) by mouth every 4 (four) hours for 10 days . 30 tablet 0 01/08/2020 01/18/2020 Active Start: 01-08-2020 End: 01-08-2020 take 650 mg by mouth every four hours 650 mg, Oral, Every 4 hours scheduled, First dose on Tue01/08/20 at 1200 Start: 11-06-2019 End: 11-06-2019 acetaminophen (TYLENOL) tabl et 1,000 mg Start: 11-06-2019 acetaminophen (TYLENOL) tablet 650 mg take 1 tablet by gianna th every six hours as needed for pain acetaminophen (TYLENOL) 500 MG tablet Take 500 mg by mouth every 6 hours as needed for Pain. 0 Active acetaminophen 325 mg / HYDROcodone bitartrate 5 mg oral tablet (1 source) Opioid Agonist Start: 03-07-2022 End: 03-07-2022 hydroCODone-acetaminophen (NORCO) 5-325 MG per tablet 1 Each acetaminophen 325 mg / oxyCODONE hydrochloride 5 mg oral tablet (6 sources) Opioid Agonist Start: 04-03-2025 End: 04-03-2025 take 1 tablet by mouth once 1 tablet, Oral, Once, On Tue04/03/25 at 1245, For 1 dose Start: 04-02-2025 End: 04-03-2025 take 1 tablet by mouth every six hours as needed 1 tablet, Oral, Every 6 hours PRN, moderate to severe pain, Starting on Tue04/02/25 at 1935 Start: 04-02-2025 End: 04-02-2025 take 1 tablet by mouth once 1 tablet, Oral, Once, On u04/02/25 at 1615, For 1 dose Start: 07-29-2023 End: 07-29-2023 take 2 tablets by mouth once 2 tablet, Oral, Once, On Tue07/29/23 at 1755, For 1 dose Start: 11-13-2021 End: 11-14-2021 take 1 tablet by mouth every four hours as needed oxyCODONE-acetaminophen (PERCOCET) 5-325 MG per tablet 1 tablet 20 ml albumin human, fpc 250 mg/ml injection (3 sources) Human Serum Albumin Start: 10-22-2024 End: 10-22-2024 25 g, Intravenous, Administer over 30 Minutes, Every 30 min, First dose on Tue10/22/24 at 1345, For 2 doses, Infuse 25 grams albumin over 30 minutes X2 bottles for total of 50 gm over 1 hour Infuse with vented tubing if product is in a glass vial. In [facility] drug library, no longer in fluid library. Start: 11-12-2021 End: 11-13-2021 albumin human 25 % injection 50 g [id number] 200 actuat albuter ol 0.09 mg/actuat metered dose inhaler (20 sources) beta2-Adrenergic Agonist Start: 04-02-2025 End: 04-05-2025 Start: 10-16-2024 End: 10-24-2024 take 2.5 mg by inhalation every two hours as needed for wheezing 2.5 mg, Inhalation, Every 2 hour PRN (RT), wheezing, shortness of breath, Starting on Tue10/16/24 at 0011 Start: 07-04-2024 End: 08-03-2024 take 2 puff(s) by inhalation every six hours as needed for wheezing albuterol 90 mcg/actuation inhaler Inhale 2 (two) puffs every 6 (six) hours as needed for wheezing . 18 g 1 07/04/2024 Active Start: 07-02-2024 End: 07-05-2024 take 2.5 mg by inhalation every six hours as needed for wheezing Start: 07-02-2024 End: 07-05-2024 Start: 05-12-2022 take 2 puff(s) by in halation every four hours as needed for wheezing albuterol 108 (90 Base) MCG/ACT Aero Soln inhaler Inhale 2 puffs every 4 hours as needed for Shortness of Breath or Wheezing. 18 g 0 05/12/2022 Active Start: 04-20-2022 End: 04-21-2022 take 2.5 mg by inhalation every six hours as needed for wheezing 2.5 mg, Nebulization, Every 6 hours PRN (RT), wheezing, Starting on Tue04/20/22 at 1852 Start: 05-21-2021 take 2 puff(s) by in halation every six hours as needed for wheezing Proventil HFA 90 mcg/actuation inhaler Inhale 2 (two) puffs every 6 (six) hours as needed for wheezing . 8 g 0 05/21/2021 Active Start: 12-03-2020 End: 12-04-2020 take 2.5 mg by inhalation every two hours as needed 2.5 mg, Inhalation, Every 2 hour PRN (RT), wheezing, shortness of breath, Starting Tue12/03/20 at 1549 Start: 08-11-2020 End: 05-12-2022 albuterol (2.5 MG/3ML) 0.083 % inhalation solution Indications: Chronic obstructive pulmonary disease with acute exacerbation Take 3 mL by nebulization every 6 hours as needed. 1 Package 3 08/11/2020 05/12/2022 Discontinued (Therapy completed) Start: 08-01-2020 albuterol (PRO VENTIL) 2.5 mg /3 mL (0.083 %) nebulizer solution 2.5 mg Start: 07-14-2020 End: 05-12-2022 take 1 puff(s) by inhalation every six hours as needed for wheezing albuterol 108 (90 Base) MCG/ACT Aero Soln inhaler Indications: Chronic obstructive pulmonary disease with acute exacerbation Inhale 1 puff every 6 hours as needed for Wheezing. 1 Inhaler 2 07/14/2020 05/12/2022 Discontinued (Therapy completed) Start: 07-08-2020 End: 07-09-2020 take 2.5 mg by inhalation every two hours as needed 2.5 mg, Inhalation, Every 2 hour PRN (RT), wheezing, shortness of breath, Starting 07/08/20 at 0132 Start: 06-27-2020 albuterol (PRO VENTIL) 2.5 mg /3 mL (0.083 %) nebulizer solution USE ONE AMPULE (3ML) BY NEBULIZER EVERY 6 HOURS NEEDED 0 06/27/2020 Active Start: 06-02-2020 End: 07-14-2020 albuterol (2.5 MG/3ML) 0.083 % inhalation solution Indications: Chronic obstructive pulmonary disease with acute exacerbation Take 3 mL by nebulization every 6 hours as needed. 1 Package 3 07/14/2020 Active Start: 01-08-2020 End: 01-08-2020 take 2.5 mg by inhalation every six hours as needed 2.5 mg, Nebulization, Every 6 hours PRN (RT), wheezing, shortness of breath, Starting e 01/08/20 at 1042 Start: 11-06-2019 2.5 mg, Nebuli zation, EVERY 2 HOURS PRN, Wheezing, Starting e 11/06/19 at 0529 Start: 04-03-2019 End: 05-03-2019 take 2.5 mg by inhalation every six hours as needed for wheezing albuterol (PROVENTIL) 2.5 mg /3 mL (0.083 %) nebulizer solution Take 3 mL (2.5 mg total) by nebulization every 6 (six) hours as needed for wheezing . 75 mL 04/03/2019 Active Start: 04-03-2019 take 2.5 mg by inhal ation every six hours as needed for wheezing Start: 12-22-2017 End: 04-30-2019 take 1 puff(s) by inhalation every six hours as needed for wheezing albuterol 108 (90 Base) MCG/ACT Aero Soln inhaler Indications: Chronic obstructive pulmonary disease, unspecified COPD type Inhale 1 puff every 6 hours as needed for Wheezing. 1 Inhaler 0 04/05/2019 04/30/2019 Discontinued (Reorder) Start: 10-03-2017 albuterol (PRO VENTIL) (2.5 MG/3ML) 0.083% nebulizer solution Inhale 2.5 mg into the lungs 0 10/03/2017 Active Start: 10-03-2017 take 2.5 mg by inhal ation every six hours as needed for chronic obstructive pulmonary disease and chronic obstructive pulmonary disease albuterol (2.5 MG/3ML) 0.083% inhalation solution Indications: Chronic obstructive pulmonary disease, unspecified COPD type Take 3 mL by nebulization every 6 hours as needed. 1 Package 3 10/03/2017 Active Start: 01-12-2016 take 2 puff(s) by in halation every six hours as needed for wheezing albuterol sulfate HFA (PROVENTIL HFA) 108 (90 BASE) MCG/ACT inhaler Inhale 2 puffs into the lungs every 6 hours as needed for Wheezing 1 Inhaler 0 01/12/2016 Active Start: 05-19-2015 End: 07-04-2024 take 2 puff(s) by inhalation every six hours as needed for wheezing 2 puff, Inhalation, Every 6 hours PRN (RT), wheezing, Starting on Tue07/29/23 at 2110 SPACER REQUIRED FOR ADMINISTRATION Albuterol Sulfat e (PROVENTIL HFA IN) Inhale into the lungs 0 Active albuterol 90 mcg /actuation inhaler Inhale 2 puffs every 6 (six) hours as needed for wheezing. Active albuterol 90 mcg /actuation inhaler Inhale 2 puffs every 6 (six) hours as needed for wheezing. Active albuterol 0.833 mg/ml / ipratropium bromide 0.167 mg/ml inhalation solution (20 sources) Anticholinergic, beta2-Adrenergic Agonist Start: 05-13-2025 End: 05-13-2025 3 mL, Inhalation, As needed, shortness of breath, wheezing, Starting on Tue05/13/25 at 1704, For 1 dose, PACU (only) Start: 05-12-2025 End: 05-16-2025 3 mL, Nebulization, 4 times daily PRN, wheezing, shortness of breath, Starting on Tue05/12/25 at 0604 Start: 04-02-2025 End: 04-05-2025 3 mL, Nebulization, 4 times daily PRN, wheezing, shortness of breath, Starting on Tue04/02/25 at 1836 Start: 10-16-2024 End: 10-21-2024 take 3 mL by inhalation every four hours 3 mL, Inhalation, Every 4 hours while awake (RT), First dose (after last modification) on Rama 10/18/24 at 0800 Start: 07-02-2024 End: 07-05-2024 take 3 mL by inhalation every six hours as needed for wheezing Start: 07-29-2023 End: 08-11-2023 take 3 mL by inhalation every four hours as needed 3 mL, Inhalation, Every 4 hours PRN (RT), shortness of breath, Starting on Tue07/29/23 at 1946 Start: 03-17-2023 End: 03-22-2023 take 3 mL by inhalation every four hours as needed Ipratropium-albuterol (DUONEB) 0.5-2.5 (3) MG/3ML nebulizer solution 3 mL Start: 05-12-2022 End: 05-12-2022 ipratropium-albuterol (DUONE B) 0.5-2.5 (3) MG/3ML nebulizer solution 3 mL Start: 11-13-2021 End: 11-15-2021 take 3 mL by inhalation every four hours as needed ipratropium-albuterol (DUONEB) 0.5-2.5 (3) MG/3ML nebulizer solution 3 mL Start: 04-18-2021 End: 10-24-2024 Combivent Respimat 20-100 mcg/actuation Mist Inhale 1 (one) puff to 2 (two) puffs every 4 to 6 hours as needed . 04/18/2021 10/24/2024 Discontinued (Stop Taking at Discharge) Start: 04-18-2021 Start: 04-18-2021 take 20-100 ug by in halation every four to six hours as needed Combivent Respimat 20-100 mcg/actuation Mist Inhale 1-2 sprays every 4 to 6 hours as needed . 0 04/18/2021 Active Start: 03-29-2021 Combivent Resp imat 20-100 MCG/ACT Aero Soln inhaler Start: 12-03-2020 End: 12-04-2020 take 3 mL by inhalation every four hours 3 mL, Inhalation, Every 4 hours while awake (RT), First dose on Tue12/03/20 at 2000 Specify: while patient is awake Start: 12-03-2020 End: 12-03-2020 ipratropium-albuteroL (DUO-N EB) 0.5-2.5 mg/3 ml nebulizer solution 3 mL Start: 11-01-2020 End: 11-01-2020 ipratropium-albuteroL (DUO-N EB) 0.5-2.5 mg/3 ml nebulizer solution 3 mL Start: 08-01-2020 End: 08-01-2020 ipratropium-albuteroL (DUO-N EB) 0.5-2.5 mg/3 ml nebulizer solution 3 mL Start: 07-08-2020 End: 07-09-2020 take 3 mL by inhalation every four hours 3 mL, Inhalation, Every 4 hours scheduled (RT), First dose on Tue07/08/20 at 0400 Start: 07-07-2020 End: 07-07-2020 ipratropium-albuteroL (DUO-N EB) 0.5-2.5 mg/3 ml nebulizer solution 6 mL Start: 01-08-2020 End: 01-08-2020 take 3 mL by inhalation once 3 mL, Inhalation, Once, T e 01/08/20 at 0715, For 1 dose, Pre-Procedure Start: 11-06-2019 End: 11-06-2019 ipratropium-albuterol (DUONE B) nebulizer solution 1 ampule Start: 11-06-2019 1 ampule, Inha lation, EVERY 4 HOURS WHILE AWAKE, First dose on Tue11/06/19 at 0900 Start: 11-06-2019 End: 11-06-2019 ipratropium-albuterol (DUONE B) nebulizer solution 1 ampule Start: 11-06-2019 End: 11-06-2019 ipratropium-albuterol (DUONE B) 0.5-2.5 (3) MG/3ML nebulizer solution Start: 04-05-2019 End: 04-05-2019 ipratropium-albuterol (DUONE B) 0.5-2.5 (3) MG/3ML nebulizer solution 3 mL Start: 04-03-2019 End: 04-03-2019 ipratropium-albuterol (DUO-N EB) 0.5-2.5 mg/3 ml nebulizer solution 3 mL albuterol inhaler 2 puff (1 source) Start: 08-01-2020 End: 08-01-2020 albuterol inhaler 2 puff allopurinol 300 mg oral tablet (20 sources) Xanthine Oxidase Inhibitor Start: 02-20-2018 End: 01-03-2020 take 1 tablet by mouth once daily allopurinol (ZYLOPRIM) 300 MG tablet Take 300 mg by mouth daily. 0 02/20/2018 01/03/2020 Discontinued alteplase (CATH KAYLEE) injection 2 mg (1 source) Start: 07-08-2020 End: 07-09-2020 alteplase (CATH KAYLEE) injection 2 mg aluminum hydroxide 40 mg/ml / magnesium hydroxide 40 mg/ml / simethicone 4 mg/ml oral suspension (2 sources) Start: 07-02-2024 End: 07-05-2024 take 30 mL by mouth every four hours as needed Start: 07-08-2020 End: 07-09-2020 take 30 mL by mouth every four hours as needed 30 mL, Oral, Every 4 hours PRN, indigestion, Starting 07/08/20 at 0132 Ampicillin-Sulbactam Sodium (UNASYN) 3 g in sodium chloride 0.9% (MB PLUS) 100 mL (total volume) IVPB (2 sources) Start: 03-17-2023 End: 03-22-2023 Ampicillin-Sulbactam Sodium (UNASYN) 3 g in sodium chloride 0.9% (MB PLUS) 100 mL (total volume) IVPB Start: 03-16-2023 End: 03-16-2023 Ampicillin-Sulbactam Sodium (UNASYN) 3 g in sodium chloride 0.9% (MB PLUS) 100 mL (total volume) IVPB Ampicillin-Sulbactam Sodium (UNASYN) in Sodium chloride 0.9%, with overfill 120 mL IVPB (2 sources) Start: 03-22-2023 End: 03-31-2023 take 3 g intravenously every six hours Ampicillin-Sulbactam Sodium (UNASYN) in Sodium chloride 0.9%, with overfill 120 mL IVPB 3 g by Intravenous route every 6 hours for 14 days. 0 03/22/2023 03/31/2023 Discontinued (Therapy completed) Start: 03-22-2023 End: 04-05-2023 take 3 g intravenously every six hours Ampicillin-Sulbactam Sodium (UNASYN) in Sodium chloride 0.9%, with overfill 120 mL IVPB 3 g by Intravenous route every 6 hours for 14 days. 0 03/22/2023 04/05/2023 Active aspirin 81 mg delayed release oral tablet (20 sources) Platelet Aggregation Inhibitor, Nonsteroidal Anti-inflammatory Drug Start: 10-11-2023 take 1 capsule by mouth in the morning Aspirin Oral Capsule 81 MG 1 capsule Capsule Oral GIVE 1 CAPSULE BY MOUTH IN THE MORNING FOR PULMONARY HTN 10/11/2023 8:00:00 Start: 09-03-2020 End: 10-24-2024 take 1 tablet by mouth once daily in the morning aspirin 81 MG EC tablet Take 1 (one) tablet (81 mg total) by mouth every morning . 09/03/2020 Active Start: 07-08-2020 End: 07-09-2020 aspirin chewable tablet 81 m g Start: 01-08-2020 End: 02-07-2020 take 1 tablet by mouth twice daily aspirin 325 MG EC tablet Take 1 (one) tablet (325 mg total) by mouth 2 (two) times a day . 60 tablet 0 01/08/2020 02/07/2020 Active Start: 11-07-2019 aspirin chewab le tablet 81 mg Start: 03-23-2018 End: 09-03-2020 take 1 tablet by mouth once daily aspirin 81 MG Tab Take 1 tablet by mouth daily. 30 tablet 11 03/23/2018 09/03/2020 Discontinued (Reorder) aspirin 81 mg / calcium carbonate 777 mg oral tablet (8 sources) Platelet Aggregation Inhibitor, Nonsteroidal Anti-inflammatory Drug Start: 03-23-2018 End: 01-03-2020 aspirin-calcium carbonate 81 mg-300 mg calcium(777 mg) Tab Take 81 mg by mouth . 0 03/23/2018 01/03/2020 Discontinued atorvastatin 40 mg oral tablet (1 source) HMG-CoA Reductase Inhibitor Start: 07-08-2020 End: 07-09-2020 atorvastatin (LIPITOR) tablet 40 mg azithromycin (ZITHROMAX) 500 mg in sodium chloride (NS) 0.9% 250 mL (vialmate) (1 source) Start: 12-04-2020 End: 12-04-2020 take 500 mg intravenous route every twenty-four hours 500 mg, Intravenous, at 250 mL/hr, Every 24 hours, First dose on Tue12/04/20 at 0900 Indication: COPD Exacerbation bacitracin 0.5 unt/mg topical ointment (1 source) Start: 02-26-2023 End: 02-26-2023 Bacitracin ointment 1 Application benzocaine 140 mg/ml / butamben 20 mg/ml / tetracaine 20 mg/ml mucosal spray (2 sources) Valery Local Anesthetic, Standardized Chemical Allergen Start: 01-18-2023 End: 01-18-2023 tetracaine-benzocai ne (CETACAINE) topical spray 1 spray Start: 01-18-2023 End: 01-18-2023 tetracaine-benzocaine (CETAC CRISTHIAN) topical spray 1 spray bisacodyl 10 mg rectal suppository (2 sources) Stimulant Laxative Start: 03-16-2023 End: 03-22-2023 bisacodyl (DULCOLAX) suppository 10 mg Start: 07-08-2020 End: 07-09-2020 take 10 mg rectal route once daily as needed for constipation 10 mg, Rectal, Daily PRN, constipation, Starting Tue07/08/20 at 0132 budesonide 0.25 mg/ml inhalation suspension (2 sources) Corticosteroid Start: 11-13-2021 End: 11-15-2021 budesonide (PULMICORT) nebulizer suspension 0.5 mg Start: 07-08-2020 End: 07-08-2020 budesonide (PULMICORT) nebul izer solution 0.5 mg buprenorphine 2 mg sublingual tablet (20 sources) Partial Opioid Agonist Start: 04-03-2025 End: 04-05-2025 take 1 tablet under the tongue every eight hours as needed 4 mg, Sublingual, Every 8 hours PRN, moderate to severe pain, Starting on Tue04/03/25 at 1133, Verify patient has received Patient Med Guide for Subutex., Indication: Pain Start: 03-18-2025 End: 05-16-2025 take 4 mg under the tongue every eight hours as needed buprenorphine HCL (SUBUTEX) [address] 2 (two) tablets (4 mg total) under the tongue every 8 (eight) hours as needed . 03/18/2025 05/16/2025 Discontinued (Dose adjustment) Start: 10-16-2024 End: 10-24-2024 take 4 mg under the tongue once daily 4 mg, Sublingual, Daily, First dose on Tue10/16/24 at 1800, Verify patient has received Patient Med Guide for Subutex., Indication: Treatment of opioid dependence Start: 10-16-2024 End: 10-24-2024 take 8 mg under the tongue twice daily 8 mg, Sublingual, 2 times daily, First dose on Tue10/16/24 at 0045, Verify patient has received Patient Med Guide for Subutex., Indication: Treatment of opioid dependence Start: 07-02-2024 End: 07-05-2024 take 8 mg under the tongue twice daily 8 mg, Sublingual, 2 times daily, First dose on 07/02/24 at 2300, Verify patient has received Patient Med Guide for Subutex., Indication: Treatment of opioid dependence Start: 02-23-2023 End: 03-21-2023 take 1 tablet under the tongue three times daily Buprenorphine 8 MG sublingual tablet DISSOLVE ONE TABLET UNDER THE TONGUE THREE TIMES DAILY 0 02/23/2023 03/21/2023 Discontinued (Stop Taking at Discharge) Start: 12-04-2020 End: 12-04-2020 take 1 tablet under the tongue every twelve hours 8 mg, Sublingual, Every 12 hours, First dose on Rama 12/04/20 at 0900 Verify patient has received Patient Med Guide for Subutex. Indication: Treatment of opioid dependence Is this a continuation of home therapy? Yes Start: 06-30-2020 buprenorphine HCL (SUBUTEX) 8 mg SL Tablet TAKE 2 1/4 TABLETS UNDER TONGUE EVERY DAY 0 06/30/2020 Active Start: 02-09-2020 buprenorphine HCL (SUBUTEX) [address] 20 mg under the tongue daily . 0 02/09/2020 Active Start: 02-09-2020 End: 03-22-2023 Buprenorphine (SUBUTEX) subl ingual tablet 8 mg Start: 02-09-2020 buprenorphine HCL (SUBUTEX) [address] 1 (one) tablet (8 mg total) under the tongue 3 (three) times a day . 0 02/09/2020 Active Start: 02-09-2020 buprenorphine HCL (SUBUTEX) 8 mg SL Tablet DISSOLVE ONE TABLET UNDER THE TONGUE TWICE DAILY 0 02/09/2020 Active Start: 11-06-2019 End: 01-08-2020 take 8 mg under the tongue twice daily 8 mg, Sublingual, 2 TIMES DAILY, First dose on Tue11/06/19 at 0900 Patient supply, non formulary buprenorphine HC L (SUBUTEX) 8 mg SL Tablet Indications: opioid use disorder Place 2.5 tablets under the tongue daily Reasons: opioid use disorder. Active calcium chloride 0.0014 meq/ ml / potassium chloride 0.004 meq/ml / sodium chloride 0.103 meq/ml / sodium lactate 0.028 meq/ml injectable solution (4 sources) Start: 10-21-2022 End: 10-22-2022 Lactated ringers IV solution Start: 01-08-2020 End: 01-08-2020 take 100 mL intravenous route every hour 100 mL/hr, Intravenous, Continuous, Starting Tue01/08/20 at 1130 Saline lock once tolerating oral intake without nausea Start: 01-08-2020 End: 01-08-2020 lactated ringers bolus 1,000 mL cefadroxil 500 mg oral capsule (2 sources) Cephalosporin Antibacterial Start: 03-11-2023 End: 03-21-2023 take 1 capsule by mouth every twelve hours cefadroxil 500 MG capsule Take 1 capsule by mouth every 12 hours for 10 days. 20 capsule 0 03/11/2023 03/21/2023 Discontinued (Stop Taking at Discharge) ceFAZolin 2000 mg injection (4 sources) Cephalosporin Antibacterial Start: 07-03-2024 End: 07-05-2024 take 2000 mg intravenously every eight hours 2,000 mg, Intravenous, at 100 mL/hr, Every 8 hours, First dose on Tue07/03/24 at 0100, Indication: Community Acquired Cellulitis Start: 06-09-2023 End: 06-30-2023 take 2000 mg intravenously every eight hours ceFAZolin (ANCEF) IV (Outpatient Therapy) Indications: Prosthetic right knee infection. Infuse 2 (two) g (2,000 mg total) into a venous catheter every 8 (eight) hours . Obtain lab tests for CBC, CRP, ESR, and BMP weekly for 3 weeks. Follow-up with the [facility] weekly And Dr. Garrett in 3 weeks. End: 06/30/23 126 each 0 06/09/2023 06/30/2023 Active ceFAZolin (ANCEF) 2,000 mg in sodium chloride (NS) 0.9% 50 mL IVPB (1 source) Start: 01-08-2020 End: 01-08-2020 take 2000 mg intravenous route every six hours 2,000 mg, Intravenous, at 100 mL/hr, Every 6 hours, First dose on Tue01/08/20 at 0945, For 3 doses, PACU to Post Procedure Starting in pacu. Indication (POST PROCEDURE): Ortho ceFEPIme (MAXIPIME) 2 g in sodium chloride 0.9% (MB PLUS) 100 mL (total volume) IVPB (2 sources) Start: 02-27-2023 End: 02-27-2023 take 2 g intravenously every eight hours ceFEPIme (MAXIPIME) 2 g in sodium chloride 0.9% (MB PLUS) 100 mL (total volume) IVPB Start: 02-26-2023 End: 02-26-2023 ceFEPIme (MAXIPIME) 2 g in s odium chloride 0.9% (MB PLUS) 100 mL (total volume) IVPB cefTRIAXone (ROCEPHIN) 1 g in sterile water 10 mL IV syringe (1 source) Start: 11-06-2019 End: 11-06-2019 cefTRIAXone (ROCEPHIN) 1 g in sterile water 10 mL IV syringe cefTRIAXone (ROCEPHIN) 1000 mg in sodium chloride (NS) 0.9% 50 mL MBP (2 sources) Start: 12-04-2020 End: 12-04-2020 take 1000 mg intravenous route every twenty-four hours 1,000 mg, Intravenous, at 100 mL/hr, Every 24 hours, First dose on Rama 12/04/20 at 1300 Indication: CAP (non-ICU) Start: 12-03-2020 End: 12-03-2020 cefTRIAXone (ROCEPHIN) 1000 mg in sodium chloride (NS) 0.9% 50 mL MBP chlorhexidine gluconate 1.2 mg/ml mouthwash (1 source) Start: 07-08-2020 End: 07-08-2020 take 15 mL by mouth twice daily 15 mL, Swab, 2 times daily, First dose on Tue07/08/20 at 0900 Swab mouth thoroughly while intubated. cholecalciferol 1.25 mg oral capsule (2 sources) Vitamin D Start: 10-16-2024 End: 10-24-2024 take 1 capsule by mouth every week 1 capsule (50,000 Units), Oral, Weekly, First dose on Tue10/16/24 at 1400 Start: 07-09-2020 End: 07-09-2020 cholecalciferol (vitamin D3) tablet 5,000 Units clindamycin 300 mg oral capsule (20 sources) Lincosamide Antibacterial Start: 03-26-2025 End: 05-16-2025 take 1 capsule by mouth four times daily clindamycin (CLEOCIN) 300 MG capsule Take 1 (one) capsule (300 mg total) by mouth 4 (four) times a day . 03/26/2025 05/16/2025 Discontinued (Therapy completed) Start: 07-28-2023 End: 08-11-2023 Start: 03-17-2023 End: 03-19-2023 clindamycin (CLEOCIN) 900 mg in normal saline 50 ml premix IVPB Start: 04-21-2022 take 1 capsule by mo uth three times daily clindamycin 300 MG capsule Take 300 mg by mouth 3 times daily. 0 04/21/2022 Active Start: 03-07-2022 End: 03-17-2022 take 1 capsule by mouth three times daily clindamycin 300 MG capsule Take 1 capsule by mouth 3 times daily for 10 days. 30 capsule 0 03/07/2022 03/17/2022 Active Start: 03-07-2022 End: 03-07-2022 clindamycin (CLEOCIN) 900 mg in normal saline 50 ml premix IVPB clonazePAM 0.5 mg oral tablet (20 sources) Benzodiazepine Start: 04-20-2022 End: 04-21-2022 take 1 mg by mouth once daily 1 mg, Oral, 4 times daily, First dose on Tue04/20/22 at 2100 CATEGORY D HAZARDOUS DRUG use safe handling precautions. Use reference link to view PPE guidelines. Minimize crushing/splitting only to situations where clinically necessary. Start: 05-29-2021 take 1 tablet by gianna four times daily clonazePAM (KLONOPIN) 1 MG tablet Take 1 mg by mouth 4 (four) times a day . 0 05/29/2021 Active Start: 03-28-2021 End: 12-14-2022 take 1 tablet by mouth twice daily clonazePAM 0.5 MG tablet Take 1 tablet by mouth 2 times daily. 0 03/28/2021 12/14/2022 Discontinued collagenase 0.25 unt/mg topical ointment (12 sources) Collagen-specific Enzyme Start: 03-19-2023 End: 03-22-2023 collagenase (SANTYL) ointment 1 Application Start: 05-31-2022 Santyl 250 UNI T/GM Ointment APPLY TO THE AFFECTED AREA(S) EVERY DAY FOR 14 DAYS 0 05/31/2022 Active 1 ml dexamethasone phosphate 4 mg/ml injection (4 sources) Corticosteroid Start: 10-15-2024 End: 10-15-2024 6 mg, Intravenous, Once, On Tue10/15/24 at 1830, For 1 dose Start: 08-01-2020 End: 08-06-2020 take 1 tablet by mouth once daily at breakfast dexAMETHasone (Decadron) 6 MG tablet Take 1 (one) tablet (6 mg total) by mouth daily with breakfast for 5 days . 5 tablet 0 08/01/2020 08/06/2020 Active Start: 08-01-2020 End: 08-01-2020 dexamethasone (DECADRON) inj ection 10 mg Start: 04-03-2019 End: 04-03-2019 dexamethasone (DECADRON) inj ection 10 mg 100 ml dexmedetomidine 0.004 mg/ml injection (1 source) Central alpha-2 Adrenergic Agonist Start: 07-08-2020 End: 07-08-2020 dexmedetomidine (PRECEDEX) infusion 400 mcg/100 mL in 0.9% sodium chloride diazePAM 5 mg oral tablet (20 sources) Benzodiazepine Start: 03-10-2023 End: 03-21-2023 take 1 tablet by mouth twice daily as needed Diazepam 10 MG tablet Take 1 tablet by mouth 2 times daily as needed. 0 03/10/2023 03/21/2023 Discontinued (Stop Taking at Discharge) Start: 01-24-2023 End: 08-11-2023 take 5 mg by mouth once daily as needed 5 mg, Oral, Daily PRN, benzo wean, Starting on Tue07/29/23 at 1946 Start: 06-01-2022 take 1 tablet by gianna th three times daily as needed diazepam 10 MG tablet Take 1 tablet by mouth 3 times daily as needed. 0 06/01/2022 Active Start: 04-21-2022 End: 04-21-2022 diazePAM (VALIUM) tablet 10 mg diclofenac sodium 75 mg delayed release oral tablet (3 sources) Nonsteroidal Anti-inflammatory Drug Start: 04-14-2021 End: 11-15-2021 take 1 tablet by mouth twice daily diclofenac EC [address] tablet Indications: Fracture of second toe, left, open, with malunion, subsequent encounter , Acquired varus deformity of left foot Take 1 tablet by mouth 2 times daily for 10 days. 20 tablet 1 04/14/2021 11/15/2021 Discontinued (Stop Taking at Discharge) 24 hr dilTIAZem hydrochloride 240 mg extended release oral capsule (20 sources) Calcium Channel Emily Start: 12-03-2020 End: 12-04-2020 diltiazem (CARDIZEM CD) 24 hr capsule 240 mg Start: 09-03-2020 End: 10-24-2024 take 1 capsule by mouth once daily in the morning diltiazem (TIAZAC) 240 MG 24 hr capsule Take 1 (one) capsule (240 mg total) by mouth every morning . 09/03/2020 Active Start: 07-09-2020 End: 07-09-2020 diltiazem (CARDIZEM CD) 24 h r capsule 240 mg diltiazem (CARDIZEM) 125 mg in sodium chloride infusion (1 source) Start: 07-08-2020 End: 07-08-2020 diltiazem (CARDIZEM) 125 mg in sodium chloride infusion diltiazem (CARDIZEM) bolus from bag 15 mg (1 source) Start: 07-08-2020 End: 07-08-2020 diltiazem (CARDIZEM) bolus from bag 15 mg docusate sodium 100 mg oral capsule (3 sources) Start: 10-19-2024 End: 10-24-2024 take 100 mg by mouth twice daily 100 mg, Oral, 2 times daily, First dose on Tue10/19/24 at 1030, Hold for loose stools DO NOT CRUSH OR CHEW. Start: 05-28-2024 take 1 capsule by [facility] every twenty-four hours as needed for constipation Colace Oral Capsule 100 MG 1 capsule Capsule Oral Give 1 capsule by mouth every 24 hours as needed for constipation 05/28/2024 23:00:00 Start: 03-16-2023 End: 03-22-2023 Docusate (COLACE) capsule 10 0 mg docusate sodium 50 mg / sennosides, fpc 8.6 mg oral tablet (5 sources) Start: 05-12-2025 End: 05-16-2025 take 1 tablet by mouth twice daily 1 tablet, Oral, 2 times daily, First dose on 05/12/25 at 0900, Hold for loose stools. Do Not Crush or Chew if administering orally due to bitter taste. May be crushed if given via tube. Start: 04-02-2025 End: 04-05-2025 Start: 10-18-2024 End: 10-24-2024 take 1 tablet by mouth twice daily as needed for constipation 1 tablet, Oral, 2 times daily PRN, constipation, Starting on Rama 10/18/24 at 1113, Hold for loose stools Do Not Crush or Chew if administering orally due to bitter taste. May be crushed if given via tube. Start: 07-08-2020 End: 07-09-2020 take 1 tablet by mouth twice daily 1 tablet, Oral, 2 times daily, First dose on Tue07/08/20 at 0900 Do not crush or chew. Hold for loose stool and do not give to patients with ABD surgery. Do Not Crush or Chew if administering orally due to bitter taste. May be crushed if given via tube. Start: 01-08-2020 End: 01-08-2020 take 1 tablet by mouth twice daily 1 tablet, Oral, 2 times daily, First dose on Tue01/08/20 at 1300 NOT for abdominal surgery patients. Hold for loose stools. Do Not Crush or Chew if administering orally due to bitter taste. May be crushed if given via tube. 0.4 ml enoxaparin sodium 100 mg/ml prefilled syringe (10 sources) Low Molecular Weight Heparin Start: 05-12-2025 End: 05-16-2025 Start: 04-02-2025 End: 04-05-2025 Start: 10-19-2024 End: 10-24-2024 inject 40 mg by subcutaneous injection twice daily 40 mg, Subcutaneous, 2 times daily, First dose (after last modification) on Tue10/19/24 at 2100, Administer in abdomen unless otherwise directed by prescriber. Notify physician if patient refuses., Indication: VTE Prophylaxis Start: 10-16-2024 End: 10-19-2024 inject 40 mg by subcutaneous injection once daily 40 mg, Subcutaneous, Daily, First dose on Tue10/16/24 at 0900, Administer in abdomen unless otherwise directed by prescriber. Notify physician if patient refuses., Indication: VTE Prophylaxis Start: 07-03-2024 End: 07-05-2024 inject 40 mg by subcutaneous injection once daily 40 mg, Subcutaneous, Daily, First dose on Tue07/03/24 at 0900, Administer in abdomen unless otherwise directed by prescriber. Notify physician if patient refuses., Indication: VTE Prophylaxis Start: 03-17-2023 End: 03-22-2023 Enoxaparin Sodium (LOVENOX) injection 40 mg Start: 02-26-2023 End: 02-26-2023 Enoxaparin Sodium (LOVENOX) injection 100 mg Start: 11-13-2021 End: 11-15-2021 inject 40 mg by subcutaneous injection once daily 40 mg, Subcutaneous, DAILY, First dose on Tue11/13/21 at 2100, Until Discontinued, Indications: DVT/PE prophylaxis Start: 12-03-2020 End: 12-04-2020 inject 40 mg by subcutaneous injection once daily 40 mg, Subcutaneous, Daily, First dose on Tue12/03/20 at 2000 Administer in abdomen unless otherwise directed by prescriber. Notify physician if patient refuses. Indication: VTE Prophylaxis Start: 11-06-2019 enoxaparin (LO VENOX) injection 30 mg 20 ml etomidate 2 mg/ml injection (1 source) General Anesthetic Start: 07-07-2020 End: 07-07-2020 etomidate (AMIDATE) injection famotidine 20 mg oral tablet (1 source) Histamine-2 Receptor Antagonist Start: 07-08-2020 End: 07-09-2020 take 20 mg by mouth every twelve hours 20 mg, Oral, Every 12 hours scheduled, First dose on Tue07/08/20 at 0900 Oral or NG 20 ml fentaNYL 0.05 mg/ml injection (3 sources) Opioid Agonist Start: 07-08-2020 End: 07-08-2020 fentaNYL (SUBLIMAZE) 50 mcg/mL injection - ADS Override Pull Start: 07-08-2020 End: 07-08-2020 50-100 mcg, Intravenous, Maryse ry 5 min PRN, per A&S guidelines to achieve pain goal, Starting Tue07/08/20 at 0132 For Analgesia & Sedation per LEVEL 1 Guidelines. Start with 50 mcg / dose. For pain unrelieved after 2 doses, increase dose to 100 mcg IV Push every 5 minutes PRN. Contact physician if pain continues to be unrelieved after 400 mcg total in 1 hour, or dose reduction required. Start: 01-08-2020 End: 01-08-2020 25 mcg, Intravenous, Every 5 min PRN, Pain, Starting Tue01/08/20 at 0850, For 4 doses, PACU (only) [] Do not give more than 100 mcg while in PACU. fentaNYL (SUBLIMAZE) inj syringe 25 mcg (2 sources) Start: 05-13-2025 End: 05-13-2025 25 mcg, Intravenous, Every 5 min PRN, Pain, Starting on Tue05/13/25 at 1704, For 4 doses, PACU (only), [] Do not give more than 100 mcg while in PACU. Start: 08-05-2023 End: 08-05-2023 25 mcg, Intravenous, Every 5 min PRN, Pain, Starting on Tue08/05/23 at 1751, For 4 doses, PACU (only) [] Do not give more than 100 mcg while in PACU. fluconazole 100 mg oral tablet (8 sources) Azole Antifungal Start: 01-11-2023 take 1 tablet by mouth once daily Fluconazole (Diflucan) 100 MG tablet Take 1 tablet by mouth daily. 7 tablet 0 01/11/2023 Suspended Start: 12-28-2022 take 1 tablet by gianna th once daily Fluconazole (Diflucan) 100 MG tablet Take 1 tablet by mouth daily. 7 tablet 0 12/28/2022 Active 60 actuat formoterol fumarate 0.005 mg/actuat / mometasone furoate 0.2 mg/actuat metered dose inhaler (4 sources) Corticosteroid, beta2-Adrenergic Agonist Start: 04-02-2025 End: 04-05-2025 take 2 puff(s) by inhalation twice daily 2 puff, Inhalation, 2 times daily (RT), First dose on Tue04/02/25 at 2000 Start: 10-16-2024 End: 10-24-2024 take 2 puff(s) by inhalation twice daily 2 puff, Inhalation, 2 times daily (RT), First dose on Tue10/16/24 at 0900 Start: 07-02-2024 End: 07-05-2024 take 2 puff(s) by inhalation twice daily 2 puff, Inhalation, 2 times daily (RT), First dose on Tue07/02/24 at 2300 Start: 07-29-2023 End: 08-11-2023 take 2 puff(s) by inhalation twice daily 2 puff, Inhalation, 2 times daily (RT), First dose on Tue07/29/23 at 2300 gabapentin 400 mg oral capsule (20 sources) Anti-epileptic Agent Start: 05-12-2025 End: 05-16-2025 take 10 mL by mouth every eight hours 800 mg, Oral, Every 8 hours scheduled, First dose on Tue05/12/25 at 0605, Capsule may be opened and contents placed down tube, flush tube with 10ml saline Start: 04-02-2025 End: 04-05-2025 take 10 mL by mouth every six hours 800 mg, Oral, Every 6 hours scheduled, First dose on Tue04/02/25 at 1900, Capsule may be opened and contents placed down tube, flush tube with 10ml saline Start: 10-16-2024 End: 10-24-2024 take 10 mL by mouth four times daily 600 mg, Oral, 4 times daily, First dose on Tue10/16/24 at 0900, Capsule may be opened and contents placed down tube, flush tube with 10ml saline Start: 07-02-2024 End: 07-05-2024 take 10 mL by mouth once daily 400 mg, Oral, Nightly, First dose on Tue07/02/24 at 2300, Capsule may be opened and contents placed down tube, flush tube with 10ml saline Start: 05-13-2023 take 1 tablet by gianna th four times daily gabapentin (NEURONTIN) 800 MG tablet Take 1 (one) tablet (800 mg total) by mouth 4 (four) times a day . 05/13/2023 Active Start: 05-13-2023 take 1 tablet by gianna th four times daily gabapentin (NEURONTIN) 600 MG tablet Take 1 (one) tablet (600 mg total) by mouth 4 (four) times a day . 05/13/2023 Active Start: 05-13-2023 End: 08-11-2023 take 1 capsule by mouth four times daily Gabapentin Capsule 400 MG 1 capsule Capsule Oral GIVE 1 CAPSULE BY MOUTH FOUR TIMES A DAY FOR NEUROPATHY 10/12/2023 12:00:00 Start: 03-10-2023 End: 03-22-2023 take 400 mg by mouth four times daily 400 mg, Oral, 4 TIMES DAILY, First dose on Tue03/17/23 at 1700, Until Discontinued Start: 02-08-2023 take 1 capsule by mo [facility] four times daily Gabapentin 300 MG capsule TAKE ONE CAPSULE BY MOUTH FOUR TIMES DAILY 0 02/08/2023 Active Start: 04-20-2022 End: 04-21-2022 take 300 mg by mouth every twelve hours 300 mg, Oral, Every 12 hours scheduled, First dose on Tue04/20/22 at 2100 Start: 11-14-2021 End: 11-15-2021 gabapentin (NEURONTIN) capsu le 300 mg Start: 05-30-2021 take 1 tablet by gianna th four times daily gabapentin (NEURONTIN) 800 MG tablet Take 800 mg by mouth 4 (four) times a day . 0 05/30/2021 Active Start: 12-05-2020 take 1 tablet by gianna th three times daily gabapentin 800 MG tablet Indications: Chronic pain syndrome Take 1 tablet by mouth 3 times daily. 90 tablet 0 12/05/2020 Active Start: 12-03-2020 End: 12-04-2020 take 800 mg by mouth three times daily 800 mg, Oral, 3 times daily, First dose on Tue12/03/20 at 2100 Start: 01-08-2020 End: 01-08-2020 take 400 mg by mouth every eight hours 400 mg, Oral, Every 8 hours scheduled, First dose on Tue01/08/20 at 1400 Start: 11-06-2019 gabapentin (NE URONTIN) capsule 800 mg Start: 11-06-2019 End: 11-06-2019 gabapentin (NEURONTIN) capsu le 800 mg Start: 12-22-2017 End: 12-02-2020 take 1 tablet by mouth three times daily gabapentin 800 MG tablet Indications: Chronic pain syndrome Take 1 tablet by mouth 3 times daily. 90 tablet 0 12/05/2020 Active 1 ml heparin sodium, porcine 5000 unt/ml injection (3 sources) Unfractionated Heparin, Anti-coagulant Start: 07-29-2023 End: 08-11-2023 inject 5000 [IU] by subcutaneous injection every eight hours 5,000 Units, Subcutaneous, Every 8 hours scheduled, First dose on Tue07/29/23 at 2200 Notify physician if patient refuses. Start: 04-20-2022 End: 04-21-2022 inject 5000 [IU] by subcutaneous injection every eight hours 5,000 Units, Subcutaneous, Every 8 hours scheduled, First dose on Tue04/20/22 at 2200 Notify physician if patient refuses. Start: 07-08-2020 End: 07-09-2020 0-70 Units/kg/hr 118 kg Order-specific weight (0-82.6 mL/hr), Intravenous, at 0-82.6 mL/hr, Continuous, Starting Tue07/08/20 at 0230 Choose one of the following protocols: Cardiac / Arterial Bolus options: Protocol WITH initial bolus AND re-bolus For Downtime Calculator, use: Heparin Infusion Standard heparin bolus from bag 0-5,000 Units (1 source) Start: 07-08-2020 End: 07-09-2020 0-5,000 Units, Intravenous, Continuous PRN, IF the MAR calculator for heparin infusion specifies a bolus from bag is to be administered, Starting Tue07/08/20 at 0132 Choose one of the following protocols: Cardiac / Arterial Bolus options: Protocol WITH initial bolus AND re-bolus For Downtime Calculator, use: "Heparin Infusion Standard" 0.5 ml HYDROmorphone hydrochloride 1 mg/ml prefilled syringe (5 sources) Opioid Agonist Start: 05-11-2025 End: 05-12-2025 0.5 mg, Intravenous, Once, On Tue05/12/25 at 0250, For 1 dose Start: 03-18-2023 End: 03-20-2023 take 0.5 mg intravenously every two hours as needed HYDROmorphone (DILAUDID) injection 0.5 mg Start: 01-08-2020 End: 01-08-2020 0.25 mg, Intravenous, Every 5 min PRN, Pain, Starting Tue01/08/20 at 0850, For 8 doses, PACU (only) [] Give if fentanyl not effective or not ordered. [] Do not give more than 2.0 mg total. HYDROmorphone (DILAUDID) injection 0.25 mg (1 source) Start: 05-13-2025 End: 05-13-2025 0.25 mg, Intravenous, Every 5 min PRN, Pain, Starting on Tue05/13/25 at 1704, For 6 doses, PACU (only), Give if fentanyl not effective or not ordered. Do not give more than 1.5 mg total. hydrOXYzine hydrochloride 25 mg oral tablet (1 source) Antihistamine Start: 03-17-2023 End: 03-22-2023 hydrOXYzine HCl (ATARAX) tablet 25 mg sodium hypochlorite 1.25 mg/ml topical solution (1 source) Start: 04-21-2022 End: 04-21-2022 sodium hypochlorite (DAKIN'S (QUARTER-STRENGTH) ) 0.125 % external solution IBU Oral Tablet 400 MG (1 source) Start: 03-16-2024 End: 04-16-2024 take 1 tablet by mouth every eight hours as needed for pain IBU Oral Tablet 400 MG 400 mg Tablet Oral GIVE 400 MG BY MOUTH EVERY 8 HOURS NEEDED FOR PAIN 03/16/2024 15:00:00 04/16/2024 21:26:00 Aborted indomethacin 25 mg oral capsule (20 sources) Nonsteroidal Anti-inflammatory Drug Start: 02-20-2018 End: 01-03-2020 take 1 capsule by mouth twice daily indomethacin (INDOCIN) 25 MG capsule Take 25 mg by mouth 2 (two) times a day. 0 02/20/2018 01/03/2020 Discontinued insulin lispro 100 unt/ml injectable solution (5 sources) Insulin Analog Start: 05-12-2025 End: 05-16-2025 Start: 07-30-2023 End: 08-11-2023 inject 1 dose by subcutaneous injection three times daily before mealtime 0-30 Units, Subcutaneous, 3 times daily before meals, First dose on Tue07/30/23 at 0730 Dose should be given 10-15 minutes before a meal. If poor oral intake, nausea or blood glucose value < 80 before meal, give of the dose (rounded up to nearest unit) immediately after meal completed. If patient skipping meal, hold base prandial dose and continue to use corrective insulin as ordered. Once diet resumed, total base prandial + corrective doses may be given. Prandial Insulin Dosing Method: NO Prandial Dose - Corrective Scale ONLY Corrective Insulin Regimen (select desired scale to cover BG result): Normal Sensitivity Scale For Downtime Calculator, use: "Insulin SC MEALtime PREprandial" Start: 07-29-2023 End: 08-11-2023 inject 1 dose by subcutaneous injection once daily 0-15 Units, Subcutaneous, At bedtime, First dose on Tue07/29/23 at 2100 For Nightly Insulin Dose Coverage, use: CORRECTIVE (Only) for BG greater than 300 Nightly CORRECTIVE Dose Method: Specific Corrective Dose Nightly Specific CORRECTIVE dose (units of insulin): 2 For Downtime Calculator, use: "Insulin SC NIGHTtime" Start: 07-08-2020 End: 07-09-2020 inject 1 dose by subcutaneous injection once daily 0-15 Units, Subcutaneous, At bedtime, First dose on Tue07/08/20 at 2100 For Nightly Insulin Dose Coverage, use: CORRECTIVE (Only) for BG greater than 300 Nightly CORRECTIVE Dose Method: Follow Corrective SCALE Corrective Scale to use for BG > 300: Normal Sensitivity Scale For Downtime Calculator, use: "Insulin SC NIGHTtime" Start: 07-08-2020 End: 07-09-2020 inject 1 dose by subcutaneous injection three times daily before mealtime 0-30 Units, Subcutaneous, 3 times daily before meals, First dose on Tue07/08/20 at 0730 Dose should be given 10-15 minutes before a meal. If poor oral intake, nausea or blood glucose value < 80 before meal, give of the dose (rounded up to nearest unit) immediately after meal completed. If patient skipping meal, hold base prandial dose and continue to use corrective insulin as ordered. Once diet resumed, total base prandial + corrective doses may be given. Prandial Insulin Dosing Method: NO Prandial Dose - Corrective Scale ONLY Corrective Insulin Regimen (select desired scale to cover BG result): Normal Sensitivity Scale For Downtime Calculator, use: "Insulin SC MEALtime PREprandial" insulin lispro (AdmeLOG,Sofi LOG) injection 0-15 Units (1 source) Start: 05-12-2025 End: 05-16-2025 insulin lispro (AdmeLOG,HumaLOG) injection 0-15 Units iohexol (OMNIPAQUE) 350 MG/M L injection 90 mL (1 source) Start: 11-14-2021 End: 11-14-2021 iohexol (OMNIPAQUE) 350 MG/M L injection 90 mL iopamidoL (ISOVUE-370) 370 m g iodine /mL (76 %) injection 75 mL (2 sources) Start: 10-15-2024 End: 10-15-2024 75 mL, Intravenous, Once in imaging, contrast, Starting on Tue10/15/24 at 2053, For 1 dose Start: 07-02-2024 End: 07-02-2024 75 mL, Intravenous, Once in imaging, contrast, Starting on Tue07/02/24 at 1702, For 1 dose 1 ml ketorolac tromethamine 15 mg/ml cartridge (3 sources) Nonsteroidal Anti-inflammatory Drug, Cyclooxygenase Inhibitor Start: 03-17-2023 End: 03-22-2023 take 15 mg intravenously every six hours as needed Ketorolac (TORADOL) injection 15 mg Start: 11-13-2021 End: 11-14-2021 take 30 mg intravenously every six hours as needed ketorolac (TORADOL) injection 30 mg Start: 01-08-2020 End: 01-08-2020 30 mg, Intravenous, Every 6 hours scheduled, First dose on Tue01/08/20 at 1200, For 48 hours labetalol hydrochloride 5 mg/ml injectable solution (2 sources) beta-Adrenergic Emily Start: 03-17-2023 End: 03-22-2023 take 20 mg intravenously every six hours as needed Labetalol (NORMODYNE) injection 20 mg Start: 11-13-2021 End: 11-15-2021 take 20 mg intravenously every four hours as needed 20 mg, Intravenous, EVERY 4 HOURS NEEDED, Starting on Tue11/13/21 at 0855, Until 11/15/21 at 1419, systolic blood pressure greater than 160 Administration duration: up to 20 mg over 2 minutes. ammonium lactate 120 mg/ml topical lotion (20 sources) Start: 10-17-2024 End: 10-24-2024 apply 1 dose topically once daily Topical, Daily, First dose on Tue10/17/24 at 2230, Apply to bilateral legs. Start: 04-24-2022 ammonium lacta te 12 % Cream cream APPLY THIN LAYER TO AFFECTED AREA TWICE DAILY 0 04/24/2022 Active lactulose 667 mg/ml oral solution (3 sources) Osmotic Laxative Start: 10-20-2024 End: 10-24-2024 20 g, Oral, 2 times daily, First dose (after last modification) on Tue10/20/24 at 2100 Start: 10-19-2024 End: 10-20-2024 take 20 g by mouth every six hours 20 g, Oral, Every 6 hours, First dose (after last modification) on Tue10/19/24 at 1500 Start: 10-18-2024 End: 10-19-2024 20 g, Oral, 3 times daily, F irst dose on Tue10/18/24 at 1600 lidocaine hydrochloride 0.02 mg/mg topical gel (20 sources) Antiarrhythmic, Amide Local Anesthetic Start: 12-21-2024 End: 12-21-2024 lidocaine HCL (UROJET/GLYDO) 2 % applicator 1 Application Start: 12-21-2024 End: 12-21-2024 1 Application, Topical, Once , On Tue12/21/24 at 1430, For 1 dose Start: 12-21-2024 End: 12-21-2024 lidocaine HCL (UROJET/GLYDO) 2 % applicator 1 Application Start: 12-21-2024 End: 12-21-2024 1 Application, Topical, Once , On Tue12/21/24 at 1430, For 1 dose Start: 12-21-2024 End: 12-21-2024 lidocaine HCL (UROJET/GLYDO) 2 % applicator 1 Application Start: 12-21-2024 End: 12-21-2024 1 Application, Topical, Once , On Tue12/21/24 at 1430, For 1 dose Start: 10-19-2024 End: 10-19-2024 1 Application, Topical, Once , On Tue10/19/24 at 1215, For 1 dose, L medial leg Start: 10-17-2024 End: 10-24-2024 apply 1 dose transdermal route once daily 1 patch, Transdermal, Administer over 12 Hours, Daily, First dose on Tue10/17/24 at 1045, Apply to midback for 12 hours, then remove patch for 12 hours. Start: 10-15-2024 End: 10-16-2024 1 patch, Transdermal, Admini ster over 12 Hours, Once, On Tue10/15/24 at 1835, For 1 dose, Apply to back for 12 hours, then remove patch for 12 hours. Start: 07-30-2023 End: 08-11-2023 take 1 mL parenteral route every twenty-four hours as needed 1 mL, Injection, Once as needed, debridment, Starting on 07/30/23 at 2000, For 1 dose Start: 07-15-2023 End: 07-15-2023 lidocaine HCL (UROJET/GLYDO) 2 % applicator 1 application. Start: 07-15-2023 End: 07-15-2023 lidocaine HCL (UROJET/GLYDO) 2 % applicator 1 application. Start: 07-08-2023 End: 07-08-2023 lidocaine HCL (UROJET/GLYDO) 2 % applicator 1 application. Start: 07-08-2023 End: 07-08-2023 lidocaine HCL (UROJET/GLYDO) 2 % applicator 1 application. Start: 07-08-2023 End: 07-08-2023 lidocaine HCL (UROJET/GLYDO) 2 % applicator 1 application. Start: 07-08-2023 End: 07-08-2023 lidocaine HCL (UROJET/GLYDO) 2 % applicator 1 application. Start: 07-01-2023 End: 07-01-2023 lidocaine HCL (UROJET/GLYDO) 2 % applicator 1 application. Start: 07-01-2023 End: 07-01-2023 lidocaine HCL (UROJET/GLYDO) 2 % applicator 1 application. Start: 07-01-2023 End: 07-01-2023 lidocaine HCL (UROJET/GLYDO) 2 % applicator 1 application. Start: 07-01-2023 End: 07-01-2023 lidocaine HCL (UROJET/GLYDO) 2 % applicator 1 application. Start: 07-01-2023 End: 07-01-2023 lidocaine HCL (UROJET/GLYDO) 2 % applicator 1 application. Start: 07-01-2023 End: 07-01-2023 lidocaine HCL (UROJET/GLYDO) 2 % applicator 1 application. Start: 07-08-2020 End: 07-09-2020 take 1 mL intradermal route every twenty-four hours as needed lidocaine 10 mg/mL (1 %) injection 1 mL 1 ml LORazepam 2 mg/ml injection (2 sources) Benzodiazepine Start: 10-16-2024 End: 10-16-2024 1 mg, Intravenous, Once, On Tue10/16/24 at 1055, For 1 dose, VESICANT Start: 04-03-2019 End: 04-03-2019 LORazepam (ATIVAN) injection 1 mg magnesium hydroxide 80 mg/ml oral suspension (3 sources) Start: 10-16-2024 End: 10-24-2024 Start: 07-08-2020 End: 07-09-2020 take 2400 mg by mouth once daily as needed for constipation 2,400 mg (30 mL), Oral, Daily PRN, constipation, constipation, Starting Tue07/08/20 at 0132 Start: 01-08-2020 End: 01-08-2020 take 2400 mg by mouth once daily as needed for constipation 2,400 mg (30 mL), Oral, Daily PRN, constipation, contipation, Starting Tue01/08/20 at 1042 50 ml magnesium sulfate 40 mg/ml injection (4 sources) Start: 10-15-2024 End: 10-15-2024 2 g, Intravenous, at 50 mL/h r, Once, On Tue10/15/24 at 1830, For 1 dose Start: 03-18-2023 End: 03-22-2023 Magnesium sulfate 2 g/50 ml in sterile water premix IVPB 2 g 50 mL (total volume) Start: 11-14-2021 End: 11-15-2021 2 g, Intravenous, Administer over 4 Hours, DAILY, First dose on Tue11/14/21 at 0600, Until Discontinued Give if magnesium is less than 2 on morning labs. Infuse at a rate of 0.5 gm/hour. Start: 07-08-2020 End: 07-08-2020 take 2 g intravenous route every two hours 2 g, Intravenous, at 50 mL/hr, Every 2 hours, First dose on Tue07/08/20 at 0230, For 2 doses melatonin 5 mg oral tablet (6 sources) Start: 05-14-2025 End: 05-16-2025 take 1 dose by mouth every hour 10 mg, Oral, Nightly, First dose (after last modification) on Tue05/14/25 at 2100, Can repeat in 1 hr if ineffective Start: 04-02-2025 End: 04-05-2025 Start: 10-16-2024 End: 10-24-2024 take 10 mg by mouth once daily 10 mg, Oral, Nightly, F irst dose on Tue10/16/24 at 2100 Start: 07-02-2024 End: 07-05-2024 take 3 mg by mouth once daily as needed for sleep 3 mg, Oral, Nightly PRN, Sleep, Starting on Tue07/02/24 at 2217 Start: 08-03-2023 End: 08-11-2023 take 5 mg by mouth once daily as needed for sleep 5 mg, Oral, Nightly PRN, sleep, Starting on Tue08/03/23 at 2101 Start: 03-17-2023 End: 03-22-2023 Melatonin tablet 6 mg meloxicam 15 mg oral tablet (20 sources) Nonsteroidal Anti-inflammatory Drug Start: 04-03-2025 End: 04-05-2025 take 7.5 mg by mouth once daily at mealtime 7.5 mg, Oral, Daily with breakfast, First dose on Tue04/03/25 at 1000, Give with Food Start: 10-05-2024 take 1 tablet by mouth once da kendra meloxicam (MOBIC) 15 MG tablet Take 1 (one) tablet (15 mg total) by mouth daily . 10/05/2024 Active Start: 12-31-2023 take 1 tablet by mouth at bedt jimmie Meloxicam Oral Tablet 15 MG 1 tablet Tablet Oral GIVE 1 TABLET BY MOUTH AT BEDTIME FOR WEAKNESS 12/31/2023 20:00:00 Start: 07-30-2023 End: 08-11-2023 take 15 mg by mouth once daily at mealtime 15 mg, Oral, Daily, First dose on 07/30/23 at 0900 Give with Food Start: 05-24-2023 End: 06-23-2023 take 1 tablet by mouth once daily at breakfast meloxicam (MOBIC) 15 MG tablet Take 1 (one) tablet (15 mg total) by mouth daily with breakfast Start: 05/24/23. 30 tablet 0 05/24/2023 06/23/2023 Start: 01-03-2023 Meloxicam 15 M G tablet Start: 03-27-2022 End: 12-14-2022 meloxicam 15 MG tablet take 1 tablet by mouth once deshaun y meloxicam (MOBIC) 7.5 MG tablet Take 1 (one) tablet (7.5 mg total) by mouth daily . Active menthol 100 mg/ml / methyl salicylate 150 mg/ml topical cream (1 source) Start: 10-21-2024 End: 10-24-2024 Topical (Top), Every 8 hours PRN, pain for patients back, Starting on 10/21/24 at 1812, Apply to back methylPREDNISolone 125 mg injection (4 sources) Corticosteroid Start: 12-03-2020 End: 12-03-2020 methylPREDNISolone sod suc(PF) (SOLU-medrol) Injection 125 mg Start: 11-06-2019 End: 11-06-2019 methylPREDNISolone sodium (S RICCO-MEDROL) injection 125 mg Start: 11-06-2019 40 mg, Intrave nous, EVERY 8 HOURS, First dose on Tue11/06/19 at 0600 Start: 04-05-2019 End: 04-05-2019 methylPREDNISolone sodium fontanez ccinate (SOLU-MEDROL) injection 125 mg 5 ml midazolam 1 mg/ml injection (4 sources) Benzodiazepine Start: 07-08-2020 End: 07-08-2020 midazolam (VERSED) injection 4 mg Start: 07-08-2020 End: 07-08-2020 take 2 mg intravenous route every six hours as needed 2 mg, Intravenous, Every 6 hours PRN, sedation, to keep RASS less than +2, Starting Tue07/08/20 at 0132 Start: 07-08-2020 End: 07-08-2020 midazolam (VERSED) injection 5 mg Start: 07-07-2020 End: 07-08-2020 midazolam (VERSED) 1 mg/mL injection - ADS Override Pull 1 ml morphine sulfate 2 mg/ml cartridge (2 sources) Opioid Agonist Start: 03-17-2023 End: 03-17-2023 Morphine (PF) injection 2 mg Start: 02-26-2023 End: 02-26-2023 Morphine sulfate (PF) inject ion 4 mg mupirocin 0.02 mg/mg topical ointment (14 sources) RNA Synthetase Inhibitor Antibacterial Start: 06-07-2022 End: 12-14-2022 mupirocin 2 % ointment naloxone (NARCAN) injection 0.1 mg (5 sources) Start: 04-02-2025 End: 04-05-2025 naloxone (NARCAN) injection 0.1 mg Start: 04-20-2022 End: 04-21-2022 naloxone (NARCAN) injection 0.1 mg Start: 12-03-2020 End: 12-04-2020 naloxone (NARCAN) injection 0.1 mg Start: 07-08-2020 End: 07-09-2020 naloxone (NARCAN) injection 0.1 mg Start: 01-08-2020 End: 01-08-2020 naloxone (NARCAN) injection 0.1 mg naproxen 250 mg oral tablet (2 sources) Nonsteroidal Anti-inflammatory Drug Start: 02-02-2021 End: 02-02-2021 naproxen (NAPROSYN) tablet 500 mg Start: 09-27-2013 take 1 tablet by gianna th twice daily naproxen (NAPROSYN) 375 MG tablet Take 1 tablet by mouth 2 times daily. 12 tablet 0 09/27/2013 Active 24 hr nicotine 0.875 mg/hr transdermal system (1 source) Cholinergic Nicotinic Agonist Start: 10-17-2024 End: 10-24-2024 apply 1 dose transdermal route once daily 1 patch, Transdermal, Administer over 24 Hours, Daily, First dose on Tue10/17/24 at 0900, U/P Listed Hazardous Drug. Waste Must Be Disposed in [employer] Waste Container norepinephrine (LEVOPHED) 4 mg in sodium chloride 0.9% (NS) 250 mL infusion (1 source) Start: 07-08-2020 End: 07-09-2020 norepinephrine (LEVOPHED) 4 mg in sodium chloride 0.9% (NS) 250 mL infusion norepinephrine in dextrose 5% (LEVOPHED) 8-5 MG/250ML-% premade IV infusion (1 source) Start: 11-12-2021 End: 11-13-2021 norepinephrine in dextrose 5% (LEVOPHED) 8-5 MG/250ML-% premade IV infusion OLANZapine 5 mg disintegrating oral tablet (1 source) Atypical Antipsychotic Start: 02-22-2025 End: 04-05-2025 apply 1 tablet topically once daily OLANZapine zydis (ZYPREXA) 5 MG disintegrating tablet Dissolve 1 (one) tablet (5 mg total) on top of tongue daily Start: 02/22/25. 30 tablet 02/22/2025 04/05/2025 Discontinued (Stop Taking at Discharge) 2 ml ondansetron 2 mg/ml injection (7 sources) Serotonin-3 Receptor Antagonist Start: 10-16-2024 End: 10-24-2024 take 4 mg intravenously every six hours as needed for nausea and vomiting Start: 03-16-2023 End: 03-22-2023 take 4 mg intravenously every four hours as needed Ondansetron 4mg/2ml (ZOFRAN) injection 4 mg Start: 02-26-2023 End: 02-26-2023 Ondansetron 4mg/2ml (ZOFRAN) injection 4 mg Start: 11-12-2021 End: 11-15-2021 take 4 mg intravenously every four hours as needed 4 mg, Intravenous, EVERY 4 HOURS NEEDED, Starting on Rama 11/12/21 at 2356, Until 11/15/21 at 1419, Nausea / Vomiting Start: 12-03-2020 End: 12-04-2020 take 4 mg intravenous route every six hours as needed 4 mg, Intravenous, Every 6 hours PRN, nausea, vomiting, Starting 12/03/20 at 1549 Start: 07-08-2020 End: 07-09-2020 take 4 mg intravenous route every six hours as needed 4 mg, Intravenous, Every 6 hours PRN, nausea, vomiting, Starting Tue07/08/20 at 0132 Start: 01-08-2020 End: 01-08-2020 take 4 mg intravenous route every six hours as needed 4 mg, Intravenous, Every 6 hours PRN, nausea, vomiting, Starting Tue01/08/20 at 1042 ondansetron (ZOFRAN-ODT) disintegrating tablet 4 mg (4 sources) Start: 05-12-2025 End: 05-16-2025 take 1 tablet by mouth every six hours as needed for nausea and vomiting ondansetron (ZOFRAN-ODT) disintegrating tablet 4 mg Start: 04-02-2025 End: 04-05-2025 take 1 tablet by mouth every six hours as needed for nausea and vomiting ondansetron (ZOFRAN-ODT) disintegrating tablet 4 mg Start: 07-02-2024 End: 07-05-2024 take 1 tablet by mouth every six hours as needed for nausea and vomiting ondansetron (ZOFRAN-ODT) disintegrating tablet 4 mg Start: 04-20-2022 End: 04-21-2022 take 1 tablet by mouth every six hours as needed for nausea and vomiting ondansetron (ZOFRAN-ODT) disintegrating tablet 4 mg pantoprazole 20 mg delayed release oral tablet (20 sources) Proton Pump Inhibitor Start: 03-17-2023 End: 03-22-2023 Pantoprazole (PROTONIX) tablet DR 40 mg Start: 11-13-2021 End: 11-15-2021 take 40 mg by mouth once daily 40 mg, Oral, DAILY, Fir st dose on Tue11/13/21 at 0900, Until Discontinued Do not crush. Indications: Inpt Stress Ulcer Prophylaxis Start: 01-08-2020 End: 04-05-2025 take 1 tablet by mouth once daily pantoprazole (PROTONIX) 20 MG tablet Take 1 (one) tablet (20 mg total) by mouth daily Start: 01/09/20. 30 tablet 01/09/2020 04/05/2025 Discontinued (Stop Taking at Discharge) perflutren lipid microspheres (DEFINITY) 0.143 mg/mL solution 0-10 mL of mixture (1 source) Start: 07-08-2020 End: 07-09-2020 0-10 mL of mixture, Intravenous, Once in imaging, contrast, IF suboptimal echo, Starting 07/08/20 at 0132, For 48 hours Prepare syringe by withdrawing 1.3 mL of perflutren (DEFINITY) from the 2ml vial. Further dilute the 1.3 mL of perflutren with Sodium Chloride (NS) 0.9% to total volume of 10 ml. Chart total "ML OF MIXTURE" given to patient. piperacillin 3000 mg / tazobactam 375 mg injection (14 sources) Penicillin-clas s Antibacterial, beta Lactamase Inhibitor Start: 05-12-2025 End: 05-16-2025 take 3.375 g intravenously every eight hours 3.375 g, Intravenous, at 12.5 mL/hr, Every 8 hours, First dose on Tue05/12/25 at 1300, Start infuse 3 hours after loading dose of Zosyn 4.5 gm VESICANT, Indication: Skin/Soft Tissue Infection Start: 10-15-2024 End: 10-15-2024 4.5 g, Intravenous, at 200 m L/hr, Once, On Tue10/15/24 at 1830, For 1 dose, VESICANT, Indication: Sepsis Start: 07-02-2024 End: 07-02-2024 4.5 g, Intravenous, at 200 m L/hr, Once, On 07/02/24 at 2110, For 1 dose, VESICANT, Indication: Skin/Soft Tissue Infection Start: 08-11-2023 End: 09-01-2023 take 3.375 g intravenously every eight hours piperacillin-tazobactam (ZOSYN) IV (Outpatient Therapy) Indications: Prosthetic wound infection Infuse 3.375 g into a venous catheter every 8 (eight) hours .Obtain labs for cbc,esr, crp and bmp weekly for 3 weeks. Follow up with Dr. Garrett in 2 wks. End: 09/01/23 48 each 0 08/11/2023 09/01/2023 Active Start: 08-06-2023 End: 08-11-2023 take 3.375 g intravenously every eight hours 3.375 g, Intravenous, at 12.5 mL/hr, Every 8 hours, First dose on 08/06/23 at 1800 VESICANT Indication: Skin/Soft Tissue Infection Start: 07-29-2023 End: 08-03-2023 take 3.375 g intravenously every eight hours 3.375 g, Intravenous, at 12.5 mL/hr, Every 8 hours, First dose on Tue07/29/23 at 2000 VESICANT Indication: Skin/Soft Tissue Infection Start: 07-29-2023 End: 07-29-2023 4.5 g, Intravenous, at 200 m L/hr, Once, On Tue07/29/23 at 1620, For 1 dose VESICANT Indication: Skin/Soft Tissue Infection Start: 04-20-2022 End: 04-21-2022 take 3.375 g intravenously every eight hours Start: 04-20-2022 End: 04-20-2022 piperacillin-tazobactam (ZOS YN) IVPB 4.5 g (premix) polyethylene glycol 400 10 mg/ml ophthalmic solution (1 source) Start: 04-02-2025 End: 04-05-2025 100 ml potassium chloride 0.2 meq/ml injection (6 sources) Start: 05-13-2025 End: 05-13-2025 take 20 mEq intravenously every two hours 20 mEq, Intravenous, at 50 mL/hr, Every 2 hours, First dose on Tue05/13/25 at 0845, For 2 doses, For Non-Critical Care Patient give potassium chloride (KCL) 20 mEq IVPB x 2 bags over 2 hours each for a total dose of 40 mEq VESICANT Start: 03-18-2023 End: 03-22-2023 Potassium chloride (K-DUR) t ablet ER 40 mEq Start: 01-31-2023 End: 03-21-2023 take 1 tablet by mouth twice daily Potassium chloride 20 MEQ Tab CR tablet Take 1 tablet by mouth 2 times daily. 0 01/31/2023 03/21/2023 Discontinued (Stop Taking at Discharge) Start: 11-14-2021 End: 11-15-2021 potassium chloride (K-DUR) t ablet ER 40 mEq potassium phosphates 30 mmol in sodium chloride 0.9%, with overfill 535 mL (total volume) IVPB (1 source) Start: 11-13-2021 End: 11-15-2021 30 mmol, Intravenous, Administer over 6 Hours, NEEDED, Starting on Tue11/13/21 at 0855, Until 3/27/22 at 1419, Other, If phospate <2.5, give 30mmol Extravasation Risk predniSONE 20 mg oral tablet (20 sources) Start: 10-16-2024 End: 10-20-2024 take 40 mg by mouth once daily at mealtime 40 mg, Oral, Daily, First dose on Tue10/16/24 at 0800, For 5 doses, Give with food Start: 10-11-2023 take 1 capsule by mo ut twice daily predniSONE Oral Tablet 5 MG 1 tablet Tablet Oral TAKE ONE CAPSULE BY MOUTH TWICE DAILY FOR 10DAY 10/11/2023 8:00:00 Start: 05-13-2022 End: 10-24-2024 take 1 tablet by mouth once daily predniSONE (DELTASONE) 5 MG tablet Take 1 (one) tablet (5 mg total) by mouth daily . 30 tablet 3 05/13/2022 10/24/2024 Discontinued (Stop Taking at Discharge) Start: 09-28-2021 predniSONE (DE LTASONE) 10 MG tablet Start: 03-28-2021 predniSONE 10 MG tablet TAKE 6 TABS BY MOUTH X 1 DAY & DECREASE BY ONE DAILY UNTIL GONE 6,5,4,3,2,1 0 03/28/2021 Active Start: 12-05-2020 End: 12-04-2020 40 mg, Oral, Daily, First do se on Tue12/05/20 at 0800, For 4 doses Give with food Specify: start at hour 32 after last dose of Solu-Medrol X 3 Q8 hours Start: 11-01-2020 End: 11-01-2020 predniSONE (DELTASONE) table t 60 mg Start: 07-09-2020 End: 07-09-2020 40 mg, Oral, Daily, First do se on Tue07/09/20 at 0800, For 4 doses Give with food Specify: start at hour 32 after last dose of Solu-Medrol X 3 Q8 hours Start: 04-05-2019 End: 10-30-2019 predniSONE 20 MG Tab tablet Take 3 tablets daily x 5 days 15 tablet 0 04/05/2019 10/30/2019 Discontinued Start: 04-03-2019 End: 04-13-2019 take 1 tablet by mouth once daily predniSONE (DELTASONE) 20 MG tablet Take 1 (one) tablet (20 mg total) by mouth daily for 10 days . 10 tablet 0 04/03/2019 04/13/2019 Active 10 ml propofol 10 mg/ml injection (4 sources) General Anesthetic Start: 07-08-2020 End: 07-08-2020 Intravenous, at 0-35.4 mL/hr , Continuous, Starting Tue07/08/20 at 0230 For Analgesia & Sedation per LEVEL 2 Guidelines. Infuse with Vented Tubing Start drip at (mcg/kg/min): 10 mcg/kg/min Titrate drip by (mcg/kg/min): 10 mcg/kg/min Titrate every (minutes): 5 minutes Maximum Dose (mcg/kg/min): 50 mcg/kg/min Refer to Goal order for this TITRATION PARAMETER: RASS : Titrate to increase dose as indicated if parameter is ABOVE the goal range. : Then titrate as indicated to maintain parameter within the goal range. : Following every titration dosage change, reassess sedation and document RASS score. Start: 07-07-2020 End: 07-08-2020 propofol (DIPRIVAN) infusion QUEtiapine 25 mg oral tablet (1 source) Atypical Antipsychotic Start: 07-03-2024 End: 07-03-2024 take 25 mg by mouth once 25 mg, Oral, Once, On Tue07/03/24 at 1530, For 1 dose, May cause QT interval prolongation. rivaroxaban 20 mg oral tablet (1 source) Factor Xa Inhibitor Start: 07-09-2020 End: 07-09-2020 rivaroxaban (XARELTO) tablet 20 mg rocuronium bromide 10 mg/ml injectable solution (2 sources) Nondepolarizing Neuromuscular Emily Start: 07-07-2020 End: 07-09-2020 rocuronium (ZEMURON) injection 72 hr scopolamine 0.0139 mg/hr transdermal system (2 sources) Anticholinergic Start: 01-08-2020 End: 01-08-2020 scopolamine (TRANSDERM-SCOP) 1 mg over 3 days patch 1 patch sennosides, fpc 8.6 mg oral tablet (1 source) Start: 07-02-2024 End: 07-05-2024 simethicone 80 mg chewable tablet (19 sources) Start: 07-02-2024 End: 07-05-2024 take 1 tablet by mouth every six hours as needed Start: 10-10-2023 take 1 capsule by mo [facility] every six hours as needed Simethicone Oral Capsule 125 MG 1 capsule Capsule Oral Give 1 capsule by mouth every 6 hours as needed for Gas relief 10/10/2023 19:30:00 End: 10-24-2024 take 1 tablet by mouth every six hours as needed simethicone (GAS-X Extra Strength) 125 MG chewable tablet Chew and Swallow 1 (one) tablet (125 mg total) every 6 (six) hours as needed (gas/bloating) . 10/24/2024 Discontinued (Stop Taking at Discharge) 1000 ml sodium chloride 9 mg /ml injection (20 sources) Start: 05-13-2025 End: 05-13-2025 Starting on Tue05/13/25 at 0049, For 1 dose, DEBBIE MILLS: girish huizar Start: 05-12-2025 End: 05-16-2025 sodium chloride (PF) (NS) fl ush 5 mL Start: 04-05-2025 End: 04-05-2025 1,000 mL, Intravenous, at 98 3.6 mL/hr, Once, On Tue04/05/25 at 0100, For 1 dose Start: 04-02-2025 End: 04-05-2025 Start: 04-02-2025 End: 04-05-2025 sodium chloride (PF) (NS) fl ush 5 mL Start: 10-15-2024 End: 10-24-2024 sodium chloride (PF) (NS) fl ush 5 mL Start: 07-02-2024 End: 07-05-2024 sodium chloride (PF) (NS) fl ush 5 mL Start: 07-02-2024 End: 07-05-2024 sodium chloride (PF) (NS) fl ush 5 mL Start: 02-26-2023 End: 02-26-2023 Sodium chloride 0.9% IV solu tion 1,000 mL Start: 02-26-2023 End: 02-27-2023 Sodium chloride 0.9% IV solu tion Start: 04-20-2022 End: 04-21-2022 sodium chloride (PF) (NS) fl ush 5 mL Start: 04-20-2022 End: 04-20-2022 sodium chloride 0.9% (NS) carlton elizabeth 2,328 mL Start: 04-20-2022 End: 04-21-2022 sodium chloride 0.9% (NS) Start: 04-20-2022 End: 04-21-2022 sodium chloride (PF) (NS) fl ush 5 mL Start: 11-14-2021 End: 11-14-2021 sodium chloride 0.9% IV solu tion 75 mL Start: 11-12-2021 End: 11-14-2021 sodium chloride 0.9% IV solu tion Start: 11-12-2021 End: 11-12-2021 sodium chloride 0.9% IV solu tion 1,000 mL Start: 12-03-2020 End: 12-04-2020 take 100 mL intravenous route every hour 100 mL/hr, Intravenous, Continuous, Starting Tue12/03/20 at 1645 Start: 07-08-2020 End: 07-09-2020 sodium chloride (PF) (NS) fl ush 10 mL Start: 07-08-2020 End: 07-09-2020 sodium chloride (PF) (NS) fl ush 5 mL Start: 07-08-2020 End: 07-08-2020 sodium chloride 0.9% (NS) carlton elizabeth 1,000 mL Start: 01-08-2020 End: 01-08-2020 sodium chloride (PF) (NS) fl ush 5 mL Start: 11-06-2019 10 mL, Intrave nous, EVERY 12 HOURS SCHEDULED (2 times per day), First dose on Tue11/06/19 at 0900 Start: 11-06-2019 Intravenous, a t 75 mL/hr, CONTINUOUS, Starting Tue11/06/19 at 0545 Start: 11-06-2019 take 10 mL intraveno us route once as needed 10 mL, Intravenous, PRN, Line Care, After every IV line use, Starting Tue11/06/19 at 0529 Start: 04-03-2019 End: 04-03-2019 sodium chloride 0.9% (NS) sofosbuvir 400 mg / velpatasvir 100 mg oral tablet (20 sources) Hepatitis C Virus NS5A Inhibitor, Hepatitis C Virus Nucleotide Analog NS5B Polymerase Inhibitor Start: 10-13-2022 End: 07-31-2023 take 1 tablet by mouth once daily Epclusa 400-100 MG tablet Take 1 tablet by mouth daily. 0 10/13/2022 03/21/2023 Discontinued (Stop Taking at Discharge) succinylcholine chloride 20 mg/ml injectable solution (1 source) Depolarizing Neuromuscular Emily Start: 07-07-2020 End: 07-07-2020 succinylcholine (ANECTINE) injection traMADol hydrochloride 50 mg oral tablet (3 sources) Opioid Agonist Start: 03-17-2023 End: 03-22-2023 take 1 tablet by mouth every four hours as needed traMADol (ULTRAM) tablet 100 mg Start: 03-17-2023 End: 03-17-2023 take 1 tablet by mouth every six hours as needed traMADol (ULTRAM) tablet 50 mg Start: 02-02-2021 End: 02-02-2021 traMADoL (ULTRAM) tablet 50 mg tranexamic acid 650 mg oral tablet (1 source) Antifibrinolytic Agent Start: 01-08-2020 End: 01-08-2020 tranexamic acid (LYSTEDA) tablet 1,950 mg Start: 01-08-2020 End: 01-08-2020 tranexamic acid (LYSTEDA) ta blet 1,950 mg traZODone hydrochloride 50 m g oral tablet (4 sources) Serotonin Reuptake Inhibitor Start: 04-02-2025 End: 04-05-2025 Start: 10-16-2024 End: 10-24-2024 take 50 mg by mouth once daily 50 mg, Oral, Nightly, F irst dose on Tue10/16/24 at 2100 Start: 12-03-2020 End: 12-04-2020 50 mg, Oral, Nightly PRN, sl eep, may repeat x 1 in 30 minutes if still awake., Starting Tue12/03/20 at 1549 Start: 07-08-2020 End: 07-09-2020 take 50 mg by mouth once daily as needed for sleep 50 mg, Oral, Nightly PRN, sleep, Starting Tue07/08/20 at 0132 May repeat in 30 minutes x 1 if patient remains awake. triamcinolone acetonide 1 mg/ml topical cream (20 sources) Corticosteroid Start: 04-26-2023 End: 04-26-2023 triamcinolone (KENALOG) 0.1 % cream Start: 03-19-2023 End: 03-22-2023 triamcinolone (KENALOG) 0.1 % cream 1 Application Start: 02-15-2023 End: 02-15-2023 triamcinolone (KENALOG) 0.1 % cream 1 Application Start: 02-08-2023 End: 02-08-2023 triamcinolone (KENALOG) 0.1 % cream 1 Application Start: 01-25-2023 End: 01-25-2023 triamcinolone (KENALOG) 0.1 % cream 1 Application. Start: 01-25-2023 End: 01-25-2023 triamcinolone (KENALOG) 0.1 % cream 1 Application. Start: 01-18-2023 End: 01-18-2023 triamcinolone (KENALOG) 0.1 % cream 1 Application. Start: 01-18-2023 End: 01-18-2023 triamcinolone (KENALOG) 0.1 % cream 1 Application. Start: 12-21-2022 End: 12-21-2022 triamcinolone (KENALOG) 0.1 % cream 1 Application. Start: 12-21-2022 End: 12-21-2022 triamcinolone (KENALOG) 0.1 % cream 1 Application. Start: 12-14-2022 End: 12-14-2022 triamcinolone (KENALOG) 0.1 % cream 1 Application. Start: 12-14-2022 End: 12-14-2022 triamcinolone (KENALOG) 0.1 % cream 1 Application. Start: 11-30-2022 End: 11-30-2022 triamcinolone (KENALOG) 0.1 % cream 1 Application. Start: 11-23-2022 End: 11-23-2022 triamcinolone (KENALOG) 0.1 % cream 1 Application Start: 11-16-2022 End: 11-16-2022 triamcinolone (KENALOG) 0.1 % cream 1 Application Start: 11-16-2022 End: 11-16-2022 triamcinolone (KENALOG) 0.1 % cream 1 Application Vancomycin (VANCOCIN) 1,500 mg in Sodium chloride 0.9%, with overfill 565 mL (total volume) IVPB (1 source) Start: 02-26-2023 End: 02-26-2023 Vancomycin (VANCOCIN) 1,500 mg in Sodium chloride 0.9%, with overfill 565 mL (total volume) IVPB vancomycin (VANCOCIN) 1750 mg in sodium chloride 0.9% (NS) 500 mL IVPB (1 source) Start: 05-12-2025 End: 05-16-2025 take 1750 mg intravenously every twelve hours 1,750 mg, Intravenous, at 250 mL/hr, Every 12 hours, First dose on 05/12/25 at 1000, Indication: Skin/Soft Tissue Infection vancomycin (VANCOCIN) 2000 mg in sodium chloride 0.9% 500 mL IVPB (5 sources) Start: 05-11-2025 End: 05-12-2025 2,000 mg, Intravenous, at 250 mL/hr, Once, On 05/11/25 at 2045, For 1 dose, Indication: Skin/Soft Tissue Infection Start: 10-15-2024 End: 10-15-2024 2,000 mg, Intravenous, at 25 0 mL/hr, Once, On Tue10/15/24 at 1835, For 1 dose, Indication: Sepsis Start: 07-02-2024 End: 07-02-2024 2,000 mg, Intravenous, at 25 0 mL/hr, Once, On Tue07/02/24 at 1610, For 1 dose, Indication: Skin/Soft Tissue Infection Start: 04-22-2022 End: 04-21-2022 vancomycin (VANCOCIN) 2000 m g in sodium chloride 0.9% 500 mL IVPB Start: 04-20-2022 End: 04-20-2022 vancomycin (VANCOCIN) 2000 m g in sodium chloride 0.9% 500 mL IVPB vancomycin per pharmacy 1 each (1 source) Start: 04-20-2022 End: 04-21-2022 1 each, Intravenous, as olgeario cated by pharmacokinetics, Starting on Tue04/20/22 at 1844 Vancomycin IVPB at 20 mg/kg IV X1 then pharmacy to dose indication: Sepsis Is this a hemodialysis patient? No (5 sources) Start: 08-07-2023 End: 08-07-2023 300 mg, Intravenous, at 166. 7 mL/hr, Once, On 08/07/23 at 1345, For 1 dose Start: 08-05-2023 End: 08-05-2023 300 mg, Intravenous, at 166. 7 mL/hr, Once, On Tue08/05/23 at 1500, For 1 dose Start: 07-29-2023 End: 08-11-2023 take 4 mg by mouth every six hours as needed for nausea and vomiting [Order 1 Start] Name: ondansetron (ZOFRAN-ODT) disintegrating tablet 4 mg Signed Summary: 4 mg, Oral, Every 6 hours PRN, nausea, vomiting, Starting on Tue07/29/23 at 1946 Use oral route first, if tolerated. Formulation requires tablet remain in sealed package until immediately prior to dose being administered. [Order 1 End] [Order 2 Start] Name: ondansetron (ZOFRAN) injection 4 mg Signed Summary: 4 mg, Intravenous, Every 6 hours PRN, nausea, vomiting, Starting on Tue07/29/23 at 1946 Use oral route first, if tolerated. [Order 2 End] Start: 07-29-2023 End: 08-11-2023 [Order 1 Start] Name: Saline lock IV Signed Summary: Routine, Continuous, Starting on Tue07/29/23 at 1947, Until Specified [Order 1 End] [Order 2 Start] Name: sodium chloride (PF) (NS) flush 5 mL Signed Summary: 5 mL, Intravenous, As needed, line care, Starting on Tue07/29/23 at 1946 [Order 2 End] [Order 3 Start] Name: sodium chloride (PF) (NS) flush 5 mL Signed Summary: 5 mL, Intravenous, Every 8 hours scheduled, First dose on Tue07/29/23 at 2200 Saline lock [Order 3 End] [Order 4 Start] Name: sodium chloride 0.9% (NS) Signed Summary: 0-150 mL/hr, Intravenous, As needed, To flush line after IV infusions when no maintenance IV ordered or a compatibility issue. Infuse 20ml at the same rate as the secondary infusion, Starting on Tue07/29/23 at 1946 Run as Primary IV. NOT intended for KVO. [Order 4 End] Start: 07-29-2023 End: 07-29-2023 2,500 mg, Intravenous, at 20 0 mL/hr, Once, On Tue07/29/23 at 1625, For 1 dose Indication: Skin/Soft Tissue Infection (1 source) Start: 07-30-2023 End: 08-01-2023 take 1250 mg intravenously every twelve hours 1,250 mg, Intravenous, at 250 mL/hr, Every 12 hours, First dose on Tue07/30/23 at 0900 Indication: Skin/Soft Tissue Infection (1 source) Start: 07-29-2023 End: 07-29-2023 75 mL, Intravenous, Once in imaging, contrast, Starting on Tue07/29/23 at 1739, For 1 dose Problems Active Problems Problem Classification Problem Date Documented Date Episodic/Chronic Acquired foot deformities (1 source) Acquired left hallux rigidus; Translations: [Hallux rigidus, left foot] Chronic Acquired foot deformities (2 sources) Adductus deformity of foot; Translations: [Varus deformity, not elsewhere classified, left ankle] Episodic Acute and unspecified renal failure (2 sources) Unspecified kidney failure; Translations: [Unspecified kidney failure] Onset: 5 Chronic Administrative/socia l admission (2 sources) Referral statuses; Translations: [Persons encountering health services in other specified circumstances] Episodic Alcohol-related disorders (20 sources) Alcoholic cirrhosis; Translations: [Alcoholic cirrhosis of liver without ascites] Onset: 2 Chronic Anxiety disorders (1 source) Anxiety disorder, unspecified; Translations: [ANXIETY DISORDER, UNSPECIFIED] Onset: 4 Chronic Asthma (20 sources) Mild intermittent asthma; Translations: [Acute exacerbation of asthma] Onset: 2 Chronic Asthma (1 source) Asthma Onset: 4 Bacterial infection; unspecified site (3 sources) Infection by methicillin sensitive Staphylococcus aureus; Translations: [Methicillin susceptible Staphylococcus aureus infection, unspecified site] Onset: 3 03-31-2023 Episodic Cardiac dysrhythmias (20 sources) Atrial fibrillation with rapid ventricular response; Translations: [Atrial fibrillation] Onset: 0 07-08-2020 Chronic Chronic obstructive pulmonary disease and bronchiectasis (20 sources) Chronic obstructive lung disease; Translations: [Acute exacerbation of chronic obstructive airways disease] Onset: 0 Resolved: 3 07-08-2020 Chronic Chronic obstructive pulmonary disease and bronchiectasis (2 sources) Chronic obstructive pulmonary disease and bronchiectasis Onset: 4 Chronic ulcer of skin (20 sources) Non-pressure chronic ulcer of other part of right foot with unspecified severity; Translations: [Ulcer of other part of foot] Onset: 2 Chronic Coagulation and hemorrhagic disorders (20 sources) Platelet count below reference range; Translations: [Thrombocytopenia, unspecified] Onset: 2 Chronic Congestive heart failure; nonhypertensive (20 sources) Acute congestive heart failure; Translations: [Heart failure, unspecified] Onset: 0 Resolved: 3 07-08-2020 Chronic Congestive heart failure; nonhypertensive (1 source) Congestive heart failure; nonhypertensive Onset: 4 Deficiency and other anemia (20 sources) Pancytopenia; Translations: [Other pancytopenia] Onset: 2 Chronic Deficiency and other anemia (4 sources) Other pancytopenia; Translations: [Other pancytopenia] Onset: 2 Chronic Deficiency and other anemia (2 sources) Anemia, unspecified; Translations: [Anemia, unspecified] Onset: 2 Episodic Deficiency and other anemia (2 sources) Iron deficiency anemia, unspecified; Translations: [Iron deficiency anemia, unspecified] Onset: 2 Episodic Delirium, dementia, and amnestic and other cognitive disorders (1 source) Age-related physical debility; Translations: [AGE-RELATED PHYSICAL DEBILITY] Onset: 4 Chronic Diabetes mellitus with complications (1 source) Type 2 diabetes mellitus with diabetic polyneuropathy; Translations: [TYPE 2 DIABETES MELLITUS WITH DIABETIC POLYNEUROPATHY] Onset: 4 Chronic Diabetes mellitus without complication (20 sources) Type 2 diabetes mellitus; Translations: [Type 2 diabetes mellitus without complication] Onset: 0 07-08-2020 Chronic Diseases of white blood cells (20 sources) Leukopenia; Translations: [Decreased white blood cell count, unspecified] Onset: 1 Chronic Esophageal disorders (2 sources) Esophageal varices without bleeding; Translations: [Gastro-esophageal reflux disease without esophagitis] Onset: 4 Chronic Esophageal disorders (1 source) Esophageal disorders Onset: 4 Essential hypertension (20 sources) Essential hypertension; Translations: [Essential (primary) hypertension] Onset: 0 Resolved: 3 01-04-2020 Chronic Hepatitis (20 sources) Chronic hepatitis C; Translations: [Chronic viral hepatitis C] Onset: 2 Chronic Hepatitis (1 source) Hepatitis Onset: 4 Hypertension with complications and secondary hypertension (1 source) Hypertensive heart disease with heart failure; Translations: [HYPERTENSIVE HEART DISEASE WITH HEART FAILURE] Onset: 4 Chronic Immunizations and screening for infectious disease (20 sources) Contact with and (suspected) exposure to other viral communicable diseases; Translations: [Rheumatoid factor positive] Onset: 2 Episodic Infective arthritis and osteomyelitis (except that caused by tuberculosis or sexually transmitted disease) (2 sources) Pyogenic arthritis, unspecified; Translations: [Pyogenic arthritis, unspecified] Onset: 5 Episodic Influenza (1 source) Influenza due to Influenza A virus; Translations: [Influenza A] Episodic Joint disorders and dislocations; trauma-related (1 source) Subluxation of foot joint; Translations: [Unspecified subluxation of right foot, initial encounter] 02-22-2023 Episodic Malaise and fatigue (20 sources) Asthenia; Translations: [Weakness] Onset: 2 Episodic Nutritional deficiencies (20 sources) Deficiency of macronutrients; Translations: [Unspecified severe protein-calorie malnutrition] Onset: 2 Chronic Open wounds of extremities (20 sources) Injury of lower extremity; Translations: [Unspecified open wound, right lower leg, subsequent encounter] Onset: 3 Episodic Osteoarthritis (20 sources) Unilateral primary osteoarthritis, right knee; Translations: [Primary osteoarthritis, left ankle and foot] Onset: 8 07-31-2018 Chronic Other circulatory disease (1 source) H/O: heart failure; Translations: [H/O CHF] Episodic Other circulatory disease (1 source) Suspected deep vein thrombosis; Translations: [Other specified symptoms and signs involving the circulatory and respiratory systems] 02-26-2023 Episodic Other connective tissue disease (3 sources) History of total knee arthroplasty; Translations: [S/P total knee arthroplasty, right] Chronic Other connective tissue disease (5 sources) Presence of right artificial knee joint; Translations: [PRESENCE OF RIGHT ARTIFICIAL KNEE JOINT] Onset: 4 Chronic Other connective tissue disease (10 sources) History of right total knee replacement; Translations: [Presence of right artificial knee joint] Onset: 5 05-09-2025 Chronic Other connective tissue disease (2 sources) Weakness of hand; Translations: [Other symptoms and signs involving the musculoskeletal system] Episodic Other connective tissue disease (1 source) Bursitis of right foot; Translations: [Other enthesopathy of right foot and ankle] 02-22-2023 Episodic Other connective tissue disease (4 sources) Pain in leg, unspecified; Translations: [Pain in leg, unspecified] Onset: 3 Episodic Other connective tissue disease (2 sources) Muscle weakness; Translations: [Muscle weakness (generalized)] 10-31-2024 Episodic Other connective tissue disease (6 sources) Synovitis; Translations: [Synovitis] 05-09-2025 Episodic Other connective tissue disease (1 source) Pain in lower limb; Translations: [Pain in leg, unspecified] 05-12-2025 Episodic Other diseases of veins and lymphatics (1 source) Lymphedema of bilateral lower limbs; Translations: [Lymphedema, not elsewhere classified] Chronic Other diseases of veins and lymphatics (6 sources) Lymphedema, not elsewhere classified; Translations: [Lymphedema, not elsewhere classified] Onset: 2 Chronic Other diseases of veins and lymphatics (10 sources) Lymphedema; Translations: [Lymphedema, not elsewhere classified] Chronic Other diseases of veins and lymphatics (1 source) Venous hypertension; Translations: [Chronic venous hypertension (idiopathic) without complications of unspecified lower extremity] 01-17-2024 Chronic Other diseases of veins and lymphatics (1 source) Chronic venous hypertension (idiopathic) with inflammation of bilateral lower extremity; Translations: [CHRONIC VENOUS HYPERTENSION (IDIOPATHIC) WITH INFLAMMATION OF BILATERAL LOWER EXTREMITY] Onset: 4 Chronic Other diseases of veins and lymphatics (11 sources) Peripheral venous insufficiency; Translations: [Venous insufficiency (chronic) (peripheral)] Episodic Other endocrine disorders (20 sources) Hypoadrenalism; Translations: [Unspecified adrenocortical insufficiency] Onset: 3 06-12-2023 Chronic Other endocrine disorders (1 source) Primary adrenocortical insufficiency; Translations: [PRIMARY ADRENOCORTICAL INSUFFICIENCY] Onset: 4 Chronic Other endocrine disorders (1 source) Hormone level - finding; Translations: [Elevated brain natriuretic peptide (BNP) level] Episodic Other fractures (2 sources) Fracture of seventh thoracic vertebra; Translations: [Wedge compression fracture of T7-T8 vertebra, initial encounter for closed fracture] 10-18-2024 Episodic Other liver diseases (20 sources) Cirrhosis of liver; Translations: [Unspecified cirrhosis of liver] Onset: 2 Chronic Other liver diseases (3 sources) Unspecified cirrhosis of liver; Translations: [UNSPECIFIED CIRRHOSIS OF LIVER] Onset: 4 Chronic Other liver diseases (2 sources) Hepatomegaly with splenomegaly, not elsewhere classified; Translations: [Hepatomegaly with splenomegaly, not elsewhere classified] Onset: 3 Episodic Other lower respiratory disease (1 source) Dyspnea on exertion; Translations: [SOB (shortness of breath) on exertion] Episodic Other lower respiratory disease (4 sources) Dyspnea; Translations: [Shortness of breath] Onset: 4 Episodic Other nervous system disorders (5 sources) Chronic pain syndrome; Translations: [Chronic pain syndrome] 05-25-2023 Chronic Other nervous system disorders (20 sources) Chronic pain; Translations: [Other chronic pain] Onset: 3 05-25-2023 Chronic Other nervous system disorders (1 source) Walking disability Onset: 4 Chronic Other nervous system disorders (1 source) Other chronic pain; Translations: [OTHER CHRONIC PAIN] Onset: 4 Chronic Other nervous system disorders (1 source) Difficulty in walking, not elsewhere classified; Translations: [DIFFICULTY IN WALKING, NOT ELSEWHERE CLASSIFIED] Onset: 4 Chronic Other nervous system disorders (2 sources) Other encephalopathy; Translations: [Other encephalopathy] Onset: 5 Chronic Other nervous system disorders (4 sources) Chronic pain syndrome; Translations: [Chronic pain syndrome] Episodic Other non-traumatic joint disorders (1 source) Joint pain Episodic Other non-traumatic joint disorders (1 source) Knee pain Episodic Other non-traumatic joint disorders (1 source) Pain of right shoulder joint; Translations: [Pain in right shoulder] Episodic Other non-traumatic joint disorders (4 sources) Effusion, right knee; Translations: [Effusion, right knee] Onset: 3 Episodic Other non-traumatic joint disorders (6 sources) Effusion of right knee joint; Translations: [Effusion, right knee] 05-09-2025 Episodic Other non-traumatic joint disorders (1 source) 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; Translations: [Arthritis of first metatarsophalangeal (MTP) joint of left foot] Other nutritional; endocrine; and metabolic disorders (20 sources) Morbid (severe) obesity due to excess calories; Translations: [Severe obesity] Onset: 8 03-10-2018 Chronic Other nutritional; endocrine; and metabolic disorders (20 sources) Body mass index 40+ - severely obese; Translations: [Morbid (severe) obesity due to excess calories] Onset: 0 07-08-2020 Chronic Other nutritional; endocrine; and metabolic disorders (1 source) Morbid obesity; Translations: [Morbid obesity (HCC)] Chronic Other nutritional; endocrine; and metabolic disorders (20 sources) Obesity; Translations: [Other obesity due to excess calories] Onset: 2 Chronic Other nutritional; endocrine; and metabolic disorders (20 sources) Hyperbilirubinemia; Translations: [Other disorders of bilirubin metabolism] Onset: 2 Chronic Other nutritional; endocrine; and metabolic disorders (20 sources) Body mass index 30+ - obesity; Translations: [Obesity, unspecified] Onset: 0 Chronic Other nutritional; endocrine; and metabolic disorders (4 sources) Obesity, unspecified; Translations: [Obesity, unspecified] Onset: 3 Chronic Other nutritional; endocrine; and metabolic disorders (2 sources) Body mass index (BMI) 40.0-44.9, adult; Translations: [Body mass index (BMI) 40.0-44.9, adult] Onset: 0 Chronic Other skin disorders (3 sources) Mass of foot; Translations: [Localized swelling, mass and lump, right lower limb] Episodic Other skin disorders (2 sources) Localized swelling, mass and lump, right lower limb; Translations: [Localized swelling, mass and lump, right lower limb] Onset: 3 Episodic Peripheral and visceral atherosclerosis (5 sources) Peripheral vascular disease; Translations: [Peripheral vascular disease, unspecified] 01-17-2024 Chronic Pneumonia (except that caused by tuberculosis or sexually transmitted disease) (4 sources) Infective pneumonia; Translations: [Pneumonia] Onset: 0 11-06-2019 Episodic Pulmonary heart disease (20 sources) Pulmonary hypertension, unspecified; Translations: [Pulmonary hypertension] Onset: 4 01-02-2025 Chronic Residual codes; unclassified (1 source) Edema of lower extremity; Translations: [Leg edema] Episodic Residual codes; unclassified (2 sources) Pain; Translations: [Pain] Episodic Residual codes; unclassified (1 source) Peripheral edema; Translations: [Edema, unspecified] Episodic Residual codes; unclassified (1 source) Other specified health status; Translations: [Other specified conditions influencing health status] 03-16-2023 Episodic Respiratory failure; insufficiency; arrest (adult) (20 sources) Acute on chronic hypoxemic and hypercapnic respiratory failure; Translations: [Acute and chronic respiratory failure with hypoxia] Onset: 0 07-08-2020 Chronic Respiratory failure; insufficiency; arrest (adult) (10 sources) Acute on chronic hypoxemic and hypercapnic respiratory failure; Translations: [Respiratory failure; insufficiency; arrest (adult)] Onset: 0 07-08-2020 Skin and subcutaneous tissue infections (20 sources) Cellulitis of right lower limb; Translations: [Cellulitis of right lower limb] Onset: 3 Resolved: 3 Episodic Substance-related disorders (20 sources) Opioid dependence; Translations: [Cannabis abuse] Onset: 0 Resolved: 3 07-08-2020 Chronic Substance-related disorders (1 source) Marijuana user; Translations: [Marijuana use] Unclassified (20 sources) Primary osteoarthritis of right knee; Translations: [Osteoarthritis of right knee] Onset: 8 07-31-2018 Unclassified (3 sources) Arthritis of foot, right; Translations: [Arthritis of right foot] Unclassified (1 source) Protein level - finding; Translations: [Elevated troponin] Unclassified (1 source) Repeated prescription; Translations: [Medication refill] Unclassified (20 sources) Onset: 3 Resolved: 3 02-26-2023 Unclassified (1 source) Housing instability, housed unspecified; Translations: [Housing instability, housed unspecified] Onset: 3 Unclassified (1 source) Contact with and (suspected) exposure to covid-19; Translations: [Contact with and (suspected) exposure to covid-19] Onset: 3 Unclassified (4 sources) Wound Check; Translations: [Wound Check] Onset: 3 Unclassified (2 sources) Circulatory problem; Translations: [Circulatory problem] Onset: 3 Unclassified (1 source) Unspecified synovitis and tenosynovitis, unspecified site; Translations: [Unspecified synovitis and tenosynovitis, unspecified site] Onset: 5 Unclassified (1 source) Other acidosis; Translations: [Other acidosis] Onset: 5 Past or Other Problems Problem Classification Problem Date Documented Da te Episodic/Chronic Acquired foot deformities (20 sources) Acquired pes planus; Translations: [Flat foot [pes planus] (acquired), right foot] Onset: 07-31-2018 07-31-2018 Episodic Acute and unspecified renal failure (20 sources) Acute injury of kidney; Translations: [Acute kidney failure, unspecified] Onset: 11-13-2021 Episodic Cardiac dysrhythmias (20 sources) Bradycardia; Translations: [Bradycardia, unspecified] Onset: 04-27-2022 Resolved: 05-25-2023 04-28-2022 Episodic Complication of device; implant or graft (20 sources) Infection associated with prosthesis of right knee joint; Translations: [Infection and inflammatory reaction due to internal right knee prosthesis, initial encounter] Onset: 06-09-2023 06-09-2023 Episodic Deficiency and other anemia (20 sources) Anemia; Translations: [Anemia, unspecified] Onset: 11-13-2021 Episodic Deficiency and other anemia (20 sources) Microcytic hypochromic anemia; Translations: [Iron deficiency anemia, unspecified] Onset: 11-14-2021 Episodic Diabetes mellitus without complication (20 sources) Hyperglycemia; Translations: [Hyperglycemia, unspecified] Onset: 06-03-2021 Resolved: 03-24-2023 06-03-2021 Episodic E Codes: Fall (20 sources) Fall; Translations: [Unspecified fall, initial encounter] Onset: 04-24-2022 Resolved: 03-24-2023 Episodic Fluid and electrolyte disorders (20 sources) Dehydration; Translations: [Dehydration] Onset: 06-03-2021 Resolved: 03-24-2023 Episodic Fracture of lower limb (2 sources) Closed fracture of middle phalanx of lesser toe of left foot; Translations: [Displaced fracture of middle phalanx of left lesser toe(s), initial encounter for closed fracture] Episodic Genitourinary symptoms and ill-defined conditions (20 sources) Proteinuria; Translations: [Proteinuria, unspecified] Onset: 11-14-2021 Episodic Joint disorders and dislocations; trauma-related (20 sources) Dislocation of toe joint; Translations: [Unspecified dislocation of left toe(s), subsequent encounter] Onset: 07-31-2018 Resolved: 05-25-2023 07-31-2018 Episodic Mood disorders (20 sources) Mood disorders Onset: 06-07-2023 06-07-2023 Mycoses (3 sources) Dermal mycosis; Translations: [Superficial mycosis, unspecified] Onset: 01-04-2023 Episodic Open wounds of extremities (2 sources) Unspecified open wound, left lower leg, initial encounter; Translations: [Unspecified open wound, left lower leg, initial encounter] Onset: 05-30-2023 Episodic Open wounds of head; neck; and trunk (20 sources) Open wound of neck; Translations: [Unspecified open wound of unspecified part of neck, initial encounter] Onset: 01-26-2017 Resolved: 03-24-2023 01-26-2017 Episodic Other acquired deformities (20 sources) Acquired deformity of ankle AND/OR foot; Translations: [Flat foot [pes planus] (acquired), right foot] Onset: 07-31-2018 07-31-2018 Episodic Other bone disease and musculoskeletal deformities (20 sources) Pain in femur; Translations: [Other specified disorders of bone, thigh] Onset: 04-24-2022 04-24-2022 Episodic Other circulatory disease (20 sources) Low blood pressure; Translations: [Hypotension, unspecified] Onset: 11-12-2021 Episodic Other circulatory disease (2 sources) Hypotension, unspecified; Translations: [Hypotension, unspecified] Onset: 04-20-2022 Episodic Other connective tissue disease (20 sources) Swelling of lower limb; Translations: [Other specified soft tissue disorders] Onset: 11-13-2021 Episodic Other connective tissue disease (1 source) Pain in right foot; Translations: [Pain in right foot] Episodic Other connective tissue disease (2 sources) Other specified soft tissue disorders; Translations: [Other specified soft tissue disorders] Onset: 05-30-2023 Episodic Other diseases of veins and lymphatics (3 sources) Venous insufficiency (chronic) (peripheral); Translations: [Venous insufficiency (chronic) (peripheral)] Onset: 04-26-2023 Episodic Other diseases of veins and lymphatics (20 sources) Stasis dermatitis; Translations: [Venous insufficiency (chronic) (peripheral)] Onset: 05-25-2023 05-25-2023 Episodic Other diseases of veins and lymphatics (20 sources) Disorder of vein of lower extremity; Translations: [Venous insufficiency (chronic) (peripheral)] Onset: 05-25-2023 10-12-2023 Episodic Other diseases of veins and lymphatics (20 sources) Disorder of vein; Translations: [Disorder of vein, unspecified] Onset: 01-02-2025 12-20-2024 Episodic Other diseases of veins and lymphatics (2 sources) Other specified disorders of veins; Translations: [Other specified disorders of veins] Onset: 01-02-2025 Episodic Other fractures (2 sources) Wedge compression fracture of T7-T8 vertebra, initial encounter for closed fracture; Translations: [Wedge compression fracture of T7-T8 vertebra, initial encounter for closed fracture] Onset: 10-15-2024 Episodic Other gastrointestinal disorders (1 source) Splenomegaly, not elsewhere classified; Translations: [SPLENOMEGALY, NOT ELSEWHERE CLASSIFIED] Onset: 10-10-2023 Episodic Other injuries and conditions due to external causes (20 sources) Hematoma; Translations: [Other injury of unspecified body region, initial encounter] Onset: 05-17-2023 05-25-2023 Episodic Other injuries and conditions due to external causes (20 sources) Traumatic hematoma; Translations: [Other injury of unspecified body region, initial encounter] Onset: 05-17-2023 Resolved: 05-25-2023 05-25-2023 Episodic Other liver diseases (20 sources) Hepatosplenomegaly; Translations: [Hepatomegaly with splenomegaly, not elsewhere classified] Onset: 11-25-2022 Episodic Other lower respiratory disease (2 sources) Shortness of breath; Translations: [Shortness of breath] Onset: 09-18-2023 Episodic Other nervous system disorders (20 sources) Unresponsive ; Translations: [Other symptoms and signs involving cognitive functions and awareness] Onset: 09-30-2021 Resolved: 05-25-2023 09-30-2021 Episodic Other nervous system disorders (1 source) Other lack of coordination; Translations: [OTHER LACK OF COORDINATION] Onset: 10-11-2023 Episodic Other nervous system disorders (1 source) Unsteadiness on feet; Translations: [UNSTEADINESS ON FEET] Onset: 10-11-2023 Episodic Other non-traumatic joint disorders (20 sources) Hip pain; Translations: [Pain in left hip] Onset: 04-24-2022 04-24-2022 Episodic Other non-traumatic joint disorders (2 sources) Pain in right knee; Translations: [Pain in right knee] Onset: 05-30-2023 Episodic Other nutritional; endocrine; and metabolic disorders (2 sources) Adult failure to thrive syndrome; Translations: [Adult failure to thrive] Onset: 04-02-2025 04-02-2025 Episodic Other nutritional; endocrine; and metabolic disorders (1 source) Adult failure to thrive; Translations: [Adult failure to thrive] Onset: 04-02-2025 Episodic Other screening for suspected conditions (not mental disorders or infectious disease) (20 sources) Platelet count below reference range; Translations: [D-dimer above reference range] Onset: 11-13-2021 Episodic Residual codes; unclassified (6 sources) Localized edema; Translations: [Localized edema] Onset: 04-26-2023 Episodic Residual codes; unclassified (2 sources) Edema, unspecified; Translations: [Edema, unspecified] Onset: 11-16-2022 Episodic Residual codes; unclassified (1 source) Acquired absence of other specified parts of digestive tract; Translations: [ACQUIRED ABSENCE OF OTHER SPECIFIED PARTS OF DIGESTIVE TRACT] Onset: 10-10-2023 Episodic Residual codes; unclassified (20 sources) Bilateral lower limb edema; Translations: [Localized edema] Onset: 01-02-2025 01-02-2025 Episodic Respiratory failure; insufficiency; arrest (adult) (20 sources) Acute respiratory failure; Translations: [Acute hypoxemic respiratory failure] Onset: 06-03-2021 Resolved: 03-24-2023 06-03-2021 Episodic Screening and history of mental health and substance abuse codes (2 sources) Ex-smoker; Translations: [Personal history of nicotine dependence] Onset: 10-10-2023 Episodic Septicemia (except in labor) (20 sources) Sepsis without acute organ dysfunction; Translations: [Sepsis, unspecified organism] Onset: 04-24-2022 Resolved: 05-25-2023 02-26-2023 Episodic Superficial injury; contusion (20 sources) Contusion of right great toe; Translations: [Contusion of right great toe without damage to nail, initial encounter] Onset: 05-17-2023 Resolved: 05-25-2023 Episodic Unclassified (1 source) Hallux valgus (acquired), right foot Unclassified (1 source) Osteoarthritis of right knee, unspecified osteoarthritis type Unclassified (1 source) Housing instability, housed unspecified; Translations: [Housing instability, housed unspecified] Onset: 04-18-2023 Unclassified (1 source) Contact with and (suspected) exposure to covid-19; Translations: [Contact with and (suspected) exposure to covid-19] Onset: 04-07-2023 Unclassified (1 source) Infection associated with prosthesis of right knee joint 07-05-2024 Unclassified (1 source) Plantar ulcer of right foot, unspecified ulcer stage (HCC) 07-05-2024 Unclassified (1 source) Fracture of seventh thoracic vertebra 10-24-2024 Unclassified (1 source) Unspecified synovitis and tenosynovitis, unspecified site; Translations: [Unspecified synovitis and tenosynovitis, unspecified site] Onset: 05-09-2025 Unclassified (1 source) Other acidosis; Translations: [Other acidosis] Onset: 02-15-2025 Varicose veins of lower extremity (20 sources) Skin ulcer of calf ; Translations: [Varicose veins of right lower extremity with ulcer of calf] Onset: 04-26-2023 Resolved: 06-12-2023 Episodic Viral infection (1 source) Respiratory syncytial virus as the cause of diseases classified elsewhere; Translations: [RESPIRATORY SYNCYTIAL VIRUS THE CAUSE OF DISEASES CLASSIFIED ELSEWHERE] Onset: 10-10-2023 Episodic Results Test Name Value Interpretation Reference Range Facility CBC WITH AUTO DIFFERENTIALon 07-04-2025 AUTO NRBC 0.0 % Normal [facility] Comment on above: Performed By: #### L [id number] #### LAB [address] [address] Jack Mendoza M.D. [id number] AUTO NRBC ABS COUNT 0.00 K/mcL Normal 0.00-0.00 [facility] Comment on above: Performed By: #### L [id number] #### LAB [address] [address] Jack Mendoza M.D. [id number] BASOPHILS ABSOLUTE COUNT 0.01 K/mcL Normal 0.00-0.30 [facility] Comment on above: Performed By: #### L [id number] #### LAB [address] [place] [address] Jack Mendoza M.D. [id number] Basophils/100 WBC (Bld) 0.3 % Normal [facility] Comment on above: Performed By: #### L [id number] #### LAB [address] [place] [address] Jack Mendoza M.D. [id number] Eosinophils (Bld) [#/Vol] 0.04 10*3/uL Normal 0.00-0.50 [facility] Comment on above: Performed By: #### L [id number] #### LAB [address] [place] [address] Jack Mendoza M.D. [id number] Eosinophils/100 WBC (Bld) 1.2 % Normal [facility] Comment on above: Performed By: #### L [id number] #### LAB [address] [place] [address] Jack Mendoza M.D. [id number] Erythrocyte distribution width (RBC) [Ratio] 17.8 % High 11.6-14.8 [facility] Comment on above: Performed By: #### L [id number] #### LAB [address] [place], [place] [id number] Jack Mendoza M.D. [id number] Hematocrit (Bld) [Volume fraction] 28.0 % Low 41.0-53.0 [facility] Comment on above: Performed By: #### L [id number] #### LAB [address] [address] Jack Mendoza M.D. [id number] Hemoglobin (Bld) [Mass/Vol] 8.4 g/dL Low 13.5-17.5 [facility] Comment on above: Performed By: #### L [id number] ####[facility] LAB [address] [address] Jack Mendoza M.D. [id number] IG ABSOLUTE 0.01 K/mcL Normal 0.00-0.30 [facility] Comment on above: Performed By: #### L [id number] #### LAB [address] [address] Jakc Mendoza M.D. [id number] IG PERCENT 0.30 % [facility] Comment on above: Result Comment: The IG parameter is the percentage of metamyelocytes, myelocytes and promyelocytes. An immature granulocyte count (IG) of 1% or more suggests the possibility of infection, an IG count of 3% is very likely related to an infection. Performed By: #### L [id number] #### LAB [address] [address] Jack Mendoza M.D. [id number] Lymphocytes (Bld) [#/Vol] 0.77 10*3/uL Low 0.90-4.00 [facility] Comment on above: Performed By: #### L [id number] #### LAB [address] [address] Jack Mendoza M.D. [id number] Lymphocytes/100 WBC (Bld) 23.2 % [facility] Comment on above: Performed By: #### L [id number] #### LAB [address] [address] Jack Mendoza M.D. [id number] MCH (RBC) [Entitic mass] 20.6 pg Low 26.0-34.0 [facility] Comment on above: Performed By: #### L [id number] #### LAB [address] [address] Jack Mendoza M.D. [id number] MCV (RBC) [Entitic vol] 68.6 fL Low 80.0-100.0 [facility] Comment on above: Performed By: #### L [id number] ####[facility] LAB [address] [address] Jack Mendoza M.D. [id number] MEAN CORPUSCULAR HEMOGLOBIN CONC 30.0 g/dL Low 31.0-37.0 [facility] Comment on above: Performed By: #### L [id number] #### LAB [address] [address] Jack Mendoza M.D. [id number] Monocytes (Bld) [#/Vol] 0.39 10*3/uL Normal 0.30-0.90 [facility] Comment on above: Performed By: #### L [id number] #### LAB [address] [address] Jack Mendoza M.D. [id number] Monocytes/100 WBC (Bld) 11.7 % Normal [facility] Comment on above: Performed By: #### L [id number] #### LAB [address] [address] Jack Mendoza M.D. [id number] NEUTROPHILS ABSOLUTE COUNT 2.10 K/mcL Normal 1.70-7.00 [facility] Comment on above: Performed By: #### L [id number] #### LAB [address] [address] Jack Mendoza M.D. [id number] Neutrophils/100 WBC (Bld) 63.3 % Normal [facility] Comment on above: Performed By: #### L [id number] #### LAB [address] [address] Jack Mendoza M.D. [id number] Platelets (Bld) [#/Vol] 89 10*3/uL Low 150-400 [facility] Comment on above: Performed By: #### L [id number] #### LAB [address] [address] Jack Mendoza M.D. [id number] RBC (Bld) [#/Vol] 4.08 10*6/uL Low 4.50-5.90 [facility] Comment on above: Performed By: #### L [id number] #### LAB [address] [address] Jack Mendoza M.D. [id number] WBC (Bld) [#/Vol] 3.32 10*3/uL Low 4.50-11.00 [facility] Comment on above: Performed By: #### L [id number] #### LAB [address] [address] Jack Mendoza M.D. [id number] HEPATIC FUNCTION PANELon ALP [Catalytic activity/Vol] 61 U/L Normal 40-150 [facility] Comment on above: Performed By: #### 4 [id number] #### LAB [address] [address] Jack Mendoza M.D. [id number] ALT [Catalytic activity/Vol] 11 U/L Normal 0-50 U/L [facility] Comment on above: Performed By: #### 4 [id number] #### LAB [address] [address] Jack Mendoza M.D. [id number] AST [Catalytic activity/Vol] 21 U/L Normal 0-50 U/L [facility] Comment on above: Performed By: #### 4 [id number] ####[facility] LAB [address] [address] Jack Mendoza M.D. [id number] Bilirubin [Mass/Vol] 0.6 mg/dL Normal 0.0-1.3 [facility] Comment on above: Performed By: #### 4 [id number] ####[facility] LAB [address] [id number] Jack Mendoza M.D. [id number] Bilirubin.indirect [Mass/Vol] 0.3 mg/dL Normal 0.0-0.4 [facility] Comment on above: Performed By: #### 4 [id number] #### LAB [address] [address] Jack Mendoza M.D. [id number] Protein [Mass/Vol] 6.3 g/dL Normal 6.0-8.0 [facility] Comment on above: Performed By: #### 4 [id number] #### LAB [address] [id number] Jack Mendoza M.D. [id number] MAGNESIUM LEVELon 07-04-2025 Magnesium [Mass/Vol] 1.8 mg/dL Normal 1.6-2.4 [facility] Comment on above: Performed By: #### 4 [id number] #### LAB [address] [address] Jack Mendoza M.D. [id number] RENAL FUNCTION PANELon 07-04 Albumin [Mass/Vol] 2.9 g/dL Low 3.2-5.2 [facility] Comment on above: Order Comment: [facility] has implemented the eGFR calculation approach that does not have a coefficient for race that conforms to the NKF-ASN Task Force Recommendations. Performed By: #### 4 [id number] #### LAB [address] [address] Jack Mendoza M.D. [id number] Performed By: #### 4 [id number] #### LAB [address] [id number] Jack Mendoza M.D. [id number] Anion gap [Moles/Vol] 10 mmol/L Normal 10-20 [facility] Comment on above: Order Comment: [facility] has implemented the eGFR calculation approach that does not have a coefficient for race that conforms to the NKF-ASN Task Force Recommendations. Performed By: #### 4 [id number] ####[facility] LAB [address] [place], [place] [address] Jack Mendoza M.D. [id number] Calcium [Mass/Vol] 8.2 mg/dL Low 8.4-10.2 [facility] Comment on above: Order Comment: [facility] has implemented the eGFR calculation approach that does not have a coefficient for race that conforms to the NKF-ASN Task Force Recommendations. Performed By: #### 4 [id number] #### LAB [address] [address] Jack Mendoza M.D. [id number] Chloride [Moles/Vol] 93 mmol/L Low 98-108 [facility] Comment on above: Order Comment: [facility] has implemented the eGFR calculation approach that does not have a coefficient for race that conforms to the NKF-ASN Task Force Recommendations. Performed By: #### 4 6449 #### LAB [address] [address] Jack Mendoza M.D. [id number] Creatinine [Mass/Vol] 0.53 mg/dL Normal 0.50-1.30 [facility] Comment on above: Order Comment: [facility] has implemented the eGFR calculation approach that does not have a coefficient for race that conforms to the NKF-ASN Task Force Recommendations. Performed By: #### 4 6449 #### LAB [address] [address] Jack Mendoza M.D. [id number] EGFR 116 mL/min/1.73 m2 Normal >=60 [facility] Comment on above: Order Comment: [facility] has implemented the eGFR calculation approach that does not have a coefficient for race that conforms to the NKF-ASN Task Force Recommendations. Result Comment: Ashley mated GFR was calculated using the 2020 CKD-EPI creatinine equation. Performed By: #### 4 6449 #### LAB [address] [address] Jack Mendoza M.D. [id number] Glucose [Mass/Vol] 116 mg/dL High 65-99 [facility] Comment on above: Order Comment: [facility] has implemented the eGFR calculation approach that does not have a coefficient for race that conforms to the NKF-ASN Task Force Recommendations. Performed By: #### 4 6449 #### LAB [address] [address] Jack Mendoza M.D. [id number] HCO3 (Bld) [Moles/Vol] 35 mmol/L High 21-32 [facility] Comment on above: Order Comment: [facility] has implemented the eGFR calculation approach that does not have a coefficient for race that conforms to the NKF-ASN Task Force Recommendations. Performed By: #### 4 6449 #### LAB [address] [address] Jack Mendoza M.D. [id number] Phosphate [Mass/Vol] 3.1 mg/dL Normal 2.7-4.5 [facility] Comment on above: Order Comment: [facility] has implemented the eGFR calculation approach that does not have a coefficient for race that conforms to the NKF-ASN Task Force Recommendations. Performed By: #### 4 6449 #### LAB [address] [address] Jack Mendoza M.D. [id number] Potassium [Moles/Vol] 3.9 mmol/L Normal 3.5-5.1 [facility] Comment on above: Order Comment: [facility] has implemented the eGFR calculation approach that does not have a coefficient for race that conforms to the NKF-ASN Task Force Recommendations. Performed By: #### 4 6449 #### LAB [address] [address] Jack Mendoza M.D. [id number] Sodium [Moles/Vol] 134 mmol/L Low 135-145 [facility] Comment on above: Order Comment: [facility] has implemented the eGFR calculation approach that does not have a coefficient for race that conforms to the NKF-ASN Task Force Recommendations. Performed By: #### 4 6449 #### LAB [address] [address] Jack Mendoza M.D. [id number] Urea nitrogen [Mass/Vol] 22 mg/dL Normal 8-25 [facility] Comment on above: Order Comment: [facility] has implemented the eGFR calculation approach that does not have a coefficient for race that conforms to the NKF-ASN Task Force Recommendations. Performed By: #### 4 6449 ####[facility] LAB [address] [address] Jack Mendoza M.D. [id number] Urea nitrogen/Creatinine [Mass ratio] 41.5 mg/mg High 10.0-20.0 [facility] Comment on above: Order Comment: [facility] has implemented the eGFR calculation approach that does not have a coefficient for race that conforms to the NKF-ASN Task Force Recommendations. Performed By: #### 4 6449 ####[facility] LAB [address] [address] Jack Mendoza M.D. [id number] CBC WITH AUTO DIFFERENTIALon 07-03-2025 AUTO NRBC 0.0 % [facility] Comment on above: Performed By: #### L [id number] ####[facility] LAB [address] [address] Jack Mendoza M.D. [id number] AUTO NRBC ABS COUNT 0.00 K/mcL Normal 0.00-0.00 [facility] Comment on above: Performed By: #### L [id number] ####[facility] LAB [address] [address] Jack Mendoza M.D. [id number] BASOPHILS ABSOLUTE COUNT 0.00 K/mcL Normal 0.00-0.30 [facility] Comment on above: Performed By: #### L [id number] ####[facility] LAB [address] [address] Jack Mendoza M.D. [id number] Basophils/100 WBC (Bld) 0.0 % [facility] Comment on above: Performed By: #### L [id number] ####[facility] LAB [address] [address] Jack Mendoza M.D. [id number] Eosinophils (Bld) [#/Vol] 0.02 10*3/uL Normal 0.00-0.50 [facility] Comment on above: Performed By: #### L [id number] #### LAB [address] [address] Jack Mendoza M.D. [id number] Eosinophils/100 WBC (Bld) 0.4 % Normal [facility] Comment on above: Performed By: #### L [id number] ####[facility] LAB [address] [address] Jack Mendoza M.D. [id number] Erythrocyte distribution width (RBC) [Ratio] 18.1 % High 11.6-14.8 [facility] Comment on above: Performed By: #### L [id number] #### LAB [address] [address] Jack Mendoza M.D. [id number] Hematocrit (Bld) [Volume fraction] 30.9 % Low 41.0-53.0 [facility] Comment on above: Performed By: #### L [id number] #### LAB [address] [address] Jack Mendoza M.D. [id number] Hemoglobin (Bld) [Mass/Vol] 9.4 g/dL Low 13.5-17.5 [facility] Comment on above: Performed By: #### L [id number] #### LAB [address] [address] Jack Mendoza M.D. [id number] IG ABSOLUTE 0.03 K/mcL Normal 0.00-0.30 [facility] Comment on above: Performed By: #### L [id number] #### LAB [address] [address] Jack Mendoza M.D. [id number] IG PERCENT 0.60 % Normal [facility] Comment on above: Result Comment: The IG parameter is the percentage of metamyelocytes, myelocytes and promyelocytes. An immature granulocyte count (IG) of 1% or more suggests the possibility of infection, an IG count of 3% is very likely related to an infection. Performed By: #### L [id number] #### LAB [address] [place] [address] Jack Mendoza M.D. [id number] Lymphocytes (Bld) [#/Vol] 0.99 10*3/uL Normal 0.90-4.00 [facility] Comment on above: Performed By: #### L [id number] #### LAB [address] [address] Jack Mendoza M.D. [id number] Lymphocytes/100 WBC (Bld) 19.4 % Normal [facility] Comment on above: Performed By: #### L [id number] #### LAB [address] [place] [address] Jack Mendoza M.D. [id number] MCH (RBC) [Entitic mass] 20.9 pg Low 26.0-34.0 [facility] Comment on above: Performed By: #### L [id number] #### LAB [address] [place] [address] Jack Mendoza M.D. [id number] MCV (RBC) [Entitic vol] 68.8 fL Low 80.0-100.0 [facility] Comment on above: Performed By: #### L [id number] #### LAB [address] [place] [address] Jack Mendoza M.D. [id number] MEAN CORPUSCULAR HEMOGLOBIN CONC 30.4 g/dL Low 31.0-37.0 [facility] Comment on above: Performed By: #### L [id number] ####[facility] LAB [address] [place] [address] Jack Mendoza M.D. [id number] Monocytes (Bld) [#/Vol] 0.72 10*3/uL Normal 0.30-0.90 [facility] Comment on above: Performed By: #### L [id number] #### LAB [address] [place] [address] Jack Mendoza M.D. [id number] Monocytes/100 WBC (Bld) 14.1 % Normal [facility] Comment on above: Performed By: #### L [id number] #### LAB [address] [address] Jack Mendoza M.D. [id number] NEUTROPHILS ABSOLUTE COUNT 3.35 K/mcL Normal 1.70-7.00 [facility] Comment on above: Performed By: #### L [id number] #### LAB [address] [address] Jack Mendoza M.D. [id number] Neutrophils/100 WBC (Bld) 65.5 % Normal [facility] Comment on above: Performed By: #### L [id number] #### LAB [address] [address] Jack Mendoza M.D. [id number] Platelets (Bld) [#/Vol] 116 10*3/uL Low 150-400 [facility] Comment on above: Performed By: #### L [id number] #### LAB [address] [address] Jack Mendoza M.D. [id number] RBC (Bld) [#/Vol] 4.49 10*6/uL Low 4.50-5.90 [facility] Comment on above: Performed By: #### L [id number] #### LAB [address] [address] Jack Mendoza M.D. [id number] WBC (Bld) [#/Vol] 5.11 10*3/uL Normal 4.50-11.00 [facility] Comment on above: Performed By: #### L [id number] #### LAB [address] [address] Jack Mendoza M.D. [id number] HEPATIC FUNCTION PANELon ALP [Catalytic activity/Vol] 65 U/L Normal 40-150 [facility] Comment on above: Performed By: #### 4 5866 #### LAB [address] [address] Jack Mendoza M.D. [id number] ALT [Catalytic activity/Vol] 11 U/L Normal 0-50 U/L [facility] Comment on above: Performed By: #### 4 5866 #### LAB [address] [address] Jack Mendoza M.D. [id number] AST [Catalytic activity/Vol] 21 U/L Normal 0-50 U/L [facility] Comment on above: Performed By: #### 4 5866 #### LAB [address] [address] Jack Mendoza M.D. [id number] Bilirubin [Mass/Vol] 0.7 mg/dL Normal 0.0-1.3 [facility] Comment on above: Performed By: #### 4 5866 #### LAB [address] [address] Jack Mendoza M.D. [id number] Bilirubin.indirect [Mass/Vol] 0.3 mg/dL Normal 0.0-0.4 [facility] Comment on above: Performed By: #### 4 5866 #### LAB [address] [address] Jack Mendoza M.D. [id number] Protein [Mass/Vol] 6.5 g/dL Normal 6.0-8.0 [facility] Comment on above: Performed By: #### 4 5866 #### LAB [address] [address] Jack Mendoza M.D. [id number] MAGNESIUM LEVELon 07-03-2025 Magnesium [Mass/Vol] 2.1 mg/dL Normal 1.6-2.4 [facility] Comment on above: Performed By: #### 4 6109 #### LAB [address] [address] Jack Mendoza M.D. [id number] POC GLUCOSE - [facility] 025 Glucose [Mass/Vol] 156 mg/dL High 65-99 [facility] Glucose [Mass/Vol] 138 mg/dL High 65-99 [facility] PT/INRon 07-03-2025 INR Coag (PPP) [Relative time] 1.2 {INR} High 0.8-1.1 [facility] Comment on above: Order Comment: Durin g the induction phase of oral anticoagulation, the INR may not reflect the anticoagulation status of the patient. Therapeutic ranges for INR's are:Most clinical situations: INR 2.0-3.0Mechanical Prosthetic Valve: INR 2.5-3.5Critical: INR >5.0 Performed By: #### 4 6391 ####[facility] LAB [address] [place], [place] [address] Jack Mendoza M.D. [id number] PT Coag (PPP) [Time] 15.7 s High 11.8-14.3 [facility] Comment on above: Order Comment: Markin g the induction phase of oral anticoagulation, the INR may not reflect the anticoagulation status of the patient. Therapeutic ranges for INR's are:Most clinical situations: INR 2.0-3.0Mechanical Prosthetic Valve: INR 2.5-3.5Critical: INR >5.0 Performed By: #### 4 6391 #### LAB [address] [place], [place] [address] Jack Mendoza M.D. [id number] RENAL FUNCTION PANELon 07-03 Albumin [Mass/Vol] 3.0 g/dL Low 3.2-5.2 [facility] Comment on above: Order Comment: [facility] has implemented the eGFR calculation approach that does not have a coefficient for race that conforms to the NKF-ASN Task Force Recommendations. Performed By: #### 4 6449 #### LAB [address] [place], [place] [address] Jack Mendoza M.D. [id number] Performed By: #### 4 5866 #### LAB [address] [place], [place] [address] Jack Mendoza M.D. [id number] Anion gap [Moles/Vol] 7 mmol/L Low 10-20 [facility] Comment on above: Order Comment: [facility] has implemented the eGFR calculation approach that does not have a coefficient for race that conforms to the NKF-ASN Task Force Recommendations. Performed By: #### 4 6449 #### LAB [address] [place], [place] [address] Jack Mendoza M.D. [id number] Calcium [Mass/Vol] 8.1 mg/dL Low 8.4-10.2 [facility] Comment on above: Order Comment: [facility] has implemented the eGFR calculation approach that does not have a coefficient for race that conforms to the NKF-ASN Task Force Recommendations. Performed By: #### 4 6449 #### LAB [address] [place], [place] [address] Jack Mendoza M.D. [id number] Chloride [Moles/Vol] 94 mmol/L Low 98-108 [facility] Comment on above: Order Comment: [facility] has implemented the eGFR calculation approach that does not have a coefficient for race that conforms to the NKF-ASN Task Force Recommendations. Performed By: #### 4 6449 #### LAB [address] [place], [place] [address] Jack Mendoza M.D. [id number] Creatinine [Mass/Vol] 0.55 mg/dL Normal 0.50-1.30 [facility] Comment on above: Order Comment: [facility] has implemented the eGFR calculation approach that does not have a coefficient for race that conforms to the NKF-ASN Task Force Recommendations. Performed By: #### 4 6449 #### LAB [address] [place], [place] [address] Jack Mendoza M.D. [id number] EGFR 115 mL/min/1.73 m2 Normal >=60 [facility] Comment on above: Order Comment: [facility] has implemented the eGFR calculation approach that does not have a coefficient for race that conforms to the NKF-ASN Task Force Recommendations. Result Comment: Ashley mated GFR was calculated using the 2020 CKD-EPI creatinine equation. Performed By: #### 4 6449 #### LAB [address] [address] Jack Mendoza M.D. [id number] Glucose [Mass/Vol] 130 mg/dL High 65-99 [facility] Comment on above: Order Comment: [facility] has implemented the eGFR calculation approach that does not have a coefficient for race that conforms to the NKF-ASN Task Force Recommendations. Performed By: #### 4 6449 #### LAB [address] [address] Jack Mendoza M.D. [id number] HCO3 (Bld) [Moles/Vol] 35 mmol/L High 21-32 [facility] Comment on above: Order Comment: [facility] has implemented the eGFR calculation approach that does not have a coefficient for race that conforms to the NKF-ASN Task Force Recommendations. Performed By: #### 4 6449 #### LAB [address] [address] Jack Mendoza M.D. [id number] Phosphate [Mass/Vol] 2.6 mg/dL Low 2.7-4.5 [facility] Comment on above: Order Comment: [facility] has implemented the eGFR calculation approach that does not have a coefficient for race that conforms to the NKF-ASN Task Force Recommendations. Performed By: #### 4 6449 #### LAB [address] [address] Jack Mendoza M.D. [id number] Potassium [Moles/Vol] 4.3 mmol/L Normal 3.5-5.1 [facility] Comment on above: Order Comment: [facility] has implemented the eGFR calculation approach that does not have a coefficient for race that conforms to the NKF-ASN Task Force Recommendations. Performed By: #### 4 6449 ####[facility] LAB [address] [address] Jack Mendoza M.D. [id number] Sodium [Moles/Vol] 132 mmol/L Low 135-145 [facility] Comment on above: Order Comment: [facility] has implemented the eGFR calculation approach that does not have a coefficient for race that conforms to the NKF-ASN Task Force Recommendations. Performed By: #### 4 6449 #### LAB [address] [place], [place] [address] Jack Mendoza M.D. [id number] Urea nitrogen [Mass/Vol] 23 mg/dL Normal 8-25 [facility] Comment on above: Order Comment: [facility] has implemented the eGFR calculation approach that does not have a coefficient for race that conforms to the NKF-ASN Task Force Recommendations. Performed By: #### 4 6449 #### LAB [address] [address] Jack Mendoza M.D. [id number] Urea nitrogen/Creatinine [Mass ratio] 41.8 mg/mg High 10.0-20.0 [facility] Comment on above: Order Comment: [facility] has implemented the eGFR calculation approach that does not have a coefficient for race that conforms to the NKF-ASN Task Force Recommendations. Performed By: #### 4 6449 #### LAB [address] [address] Jack Mendoza M.D. [id number] VANCOMYCIN LEVEL, RANDOMon 1 09-02-2024 VANCOMYCIN RANDOM 22.8 mcg/mL Normal [facility] Comment on above: Order Comment: As of 05/2022 vancomycin dosing for [facility] inpatients will be done by Bayesian dosing software rather than off traditional trough values. Please contact the site specific inpatient pharmacy before making dose changes off of trough values alone for admitted patients.No established reference range. Performed By: #### 4 6651 #### LAB [address] [place], [place] [address] Jack Mendoza M.D. [id number] CBC WITH AUTO DIFFERENTIALon 07-02-2025 AUTO NRBC 0.0 % Normal [facility] Comment on above: Performed By: #### L [id number] ####[facility] LAB [address] [place], [place] [address] Jack Mendoza M.D. [id number] AUTO NRBC ABS COUNT 0.00 K/mcL Normal 0.00-0.00 [facility] Comment on above: Performed By: #### L [id number] #### LAB [address] [address] Jack Mendoza M.D. [id number] BASOPHILS ABSOLUTE COUNT 0.01 K/mcL Normal 0.00-0.30 [facility] Comment on above: Performed By: #### L [id number] #### LAB [address] [address] Jack Mendoza M.D. [id number] Basophils/100 WBC (Bld) 0.1 % Normal [facility] Comment on above: Performed By: #### L [id number] #### LAB [address] [address] Jack Mendoza M.D. [id number] Eosinophils (Bld) [#/Vol] 0.00 10*3/uL Normal 0.00-0.50 [facility] Comment on above: Performed By: #### L [id number] #### LAB [address] [address] Jack Mendoza M.D. [id number] Eosinophils/100 WBC (Bld) 0.0 % Normal [facility] Comment on above: Performed By: #### L [id number] #### LAB [address] [address] Jack Mendoza M.D. [id number] Erythrocyte distribution width (RBC) [Ratio] 17.8 % High 11.6-14.8 [facility] Comment on above: Performed By: #### L [id number] #### LAB [address] [address] Jack Mendoza M.D. [id number] Hematocrit (Bld) [Volume fraction] 30.6 % Low 41.0-53.0 [facility] Comment on above: Performed By: #### L [id number] #### LAB [address] [place] [address] Jack Mendoza M.D. [id number] Hemoglobin (Bld) [Mass/Vol] 9.2 g/dL Low 13.5-17.5 [facility] Comment on above: Performed By: #### L [id number] #### LAB [address] [address] Jack Mendoza M.D. [id number] IG ABSOLUTE 0.04 K/mcL Normal 0.00-0.30 [facility] Comment on above: Performed By: #### L [id number] #### LAB [address] [address] Jack Mendoza M.D. [id number] IG PERCENT 0.60 % Normal [facility] Comment on above: Result Comment: The IG parameter is the percentage of metamyelocytes, myelocytes and promyelocytes. An immature granulocyte count (IG) of 1% or more suggests the possibility of infection, an IG count of 3% is very likely related to an infection. Performed By: #### L [id number] #### LAB [address] [address] Jack Mendoza M.D. [id number] Lymphocytes (Bld) [#/Vol] 0.58 10*3/uL Low 0.90-4.00 [facility] Comment on above: Performed By: #### L [id number] #### LAB [address] [address] Jack Mendoza M.D. [id number] Lymphocytes/100 WBC (Bld) 8.4 % Normal [facility] Comment on above: Performed By: #### L [id number] #### LAB [address] [address] Jack Mendoza M.D. [id number] MCH (RBC) [Entitic mass] 20.6 pg Low 26.0-34.0 [facility] Comment on above: Performed By: #### L [id number] #### LAB [address] [address] Jack Mendoza M.D. [id number] MCV (RBC) [Entitic vol] 68.5 fL Low 80.0-100.0 [facility] Comment on above: Performed By: #### L [id number] #### LAB [address] [address] Jack Mendoza M.D. [id number] MEAN CORPUSCULAR HEMOGLOBIN CONC 30.1 g/dL Low 31.0-37.0 [facility] Comment on above: Performed By: #### L [id number] #### LAB [address] [address] Jack Mendoza M.D. [id number] Monocytes (Bld) [#/Vol] 0.74 10*3/uL Normal 0.30-0.90 [facility] Comment on above: Performed By: #### L [id number] #### LAB [address] [address] Jack Mendoza M.D. [id number] Monocytes/100 WBC (Bld) 10.7 % Normal [facility] Comment on above: Performed By: #### L [id number] #### LAB [address] [address] Jack Mendoza M.D. [id number] NEUTROPHILS ABSOLUTE COUNT 5.57 K/mcL Normal 1.70-7.00 [facility] Comment on above: Performed By: #### L [id number] #### LAB [address] [address] Jack Mendoza M.D. [id number] Neutrophils/100 WBC (Bld) 80.2 % Normal [facility] Comment on above: Performed By: #### L [id number] #### LAB [address] [place] [address] Jack Mendoza M.D. [id number] Platelet mean volume (Bld) [Entitic vol] 11.7 fL Normal 9.4-12.4 [facility] Comment on above: Performed By: #### L [id number] #### LAB [address] [place] [address] Jack Mendoza M.D. [id number] Platelets (Bld) [#/Vol] 118 10*3/uL Low 150-400 [facility] Comment on above: Performed By: #### L [id number] ####[facility] LAB [address] [place] [address] Jack Mendoza M.D. [id number] RBC (Bld) [#/Vol] 4.47 10*6/uL Low 4.50-5.90 [facility] Comment on above: Performed By: #### L [id number] ####[facility] LAB [address] [address] Jack Mendoza M.D. [id number] WBC (Bld) [#/Vol] 6.94 10*3/uL Normal 4.50-11.00 [facility] Comment on above: Performed By: #### L [id number] #### LAB [address] [address] Jack Mendoza M.D. [id number] CONSULTon 07-02-2025 CONSULT Normal [facility] HEPATIC FUNCTION PANELon Albumin [Mass/Vol] 2.7 g/dL Low 3.2-5.2 [facility] Comment on above: Performed By: #### 4 5866 ####[facility] LAB [address] [address] Jack Mendoza M.D. [id number] ALP [Catalytic activity/Vol] 59 U/L Normal 40-150 [facility] Comment on above: Performed By: #### 4 5866 ####[facility] [address] [address] Jack Mendoza M.D. [id number] ALT [Catalytic activity/Vol] 16 U/L Normal 0-50 U/L [facility] Comment on above: Performed By: #### 4 5866 ####[facility] [address] [address] Jack Mendoza M.D. [id number] AST [Catalytic activity/Vol] 29 U/L Normal 0-50 U/L [facility] Comment on above: Performed By: #### 4 5866 ####[facility] [address] [address] Jack Mendoza M.D. [id number] Bilirubin [Mass/Vol] 0.6 mg/dL Normal 0.0-1.3 [facility] Comment on above: Performed By: #### 4 5866 #### LAB [address] [address] Jack Mendoza M.D. [id number] Bilirubin.indirect [Mass/Vol] 0.3 mg/dL Normal 0.0-0.4 [facility] Comment on above: Performed By: #### 4 5866 #### LAB [address] [address] Jack Mendoza M.D. [id number] Protein [Mass/Vol] 6.2 g/dL Normal 6.0-8.0 [facility] Comment on above: Performed By: #### 4 5866 #### LAB [address] [address] Jack Mendoza M.D. [id number] MAGNESIUM LEVELon 07-02-2025 Magnesium [Mass/Vol] 2.1 mg/dL Normal 1.6-2.4 [facility] Comment on above: Performed By: #### 4 6109 #### LAB [address] [place] [address] Jack Mendoza M.D. [id number] POC GLUCOSE [facility] 025 Glucose [Mass/Vol] 156 mg/dL High -[address] [place] [address] Glucose [Mass/Vol] 127 mg/dL High [address] [place] [address] Glucose [Mass/Vol] 167 mg/dL High [address] [place] [address] Glucose [Mass/Vol] 174 mg/dL High [address] [place] [address] RENAL FUNCTION PANELon 07-02 Albumin [Mass/Vol] 2.8 g/dL Low 3.2-5.2 [facility] Comment on above: Order Comment: [facility] has implemented the eGFR calculation approach that does not have a coefficient for race that conforms to the NKF-ASN Task Force Recommendations. Performed By: #### 4 6449 #### LAB [address] [address] Jack Mendoza M.D. [id number] Anion gap [Moles/Vol] 8 mmol/L Low 10-20 [facility] Comment on above: Order Comment: [facility] has implemented the eGFR calculation approach that does not have a coefficient for race that conforms to the NKF-ASN Task Force Recommendations. Performed By: #### 4 6449 #### LAB [address] [place], [place] [address] Jack Mendoza M.D. [id number] Calcium [Mass/Vol] 8.0 mg/dL Low 8.4-10.2 [facility] Comment on above: Order Comment: [facility] has implemented the eGFR calculation approach that does not have a coefficient for race that conforms to the NKF-ASN Task Force Recommendations. Performed By: #### 4 6449 #### LAB [address] [place], [place] [address] Jack Mendoza M.D. [id number] Chloride [Moles/Vol] 96 mmol/L Low 98-108 [facility] Comment on above: Order Comment: [facility] has implemented the eGFR calculation approach that does not have a coefficient for race that conforms to the NKF-ASN Task Force Recommendations. Performed By: #### 4 6449 #### LAB [address] [place], [place] [address] Jack Mendoza M.D. [id number] Creatinine [Mass/Vol] 0.60 mg/dL Normal 0.50-1.30 [facility] Comment on above: Order Comment: [facility] has implemented the eGFR calculation approach that does not have a coefficient for race that conforms to the NKF-ASN Task Force Recommendations. Performed By: #### 4 6449 #### LAB [address] [place], [place] [address] Jack Mendoza M.D. [id number] EGFR 112 mL/min/1.73 m2 Normal >=60 [facility] Comment on above: Order Comment: [facility] has implemented the eGFR calculation approach that does not have a coefficient for race that conforms to the NKF-ASN Task Force Recommendations. Result Comment: Ashley mated GFR was calculated using the 2020 CKD-EPI creatinine equation. Performed By: #### 4 6449 #### LAB [address] [address] Jack Mendoza M.D. [id number] Glucose [Mass/Vol] 158 mg/dL High 65-99 [facility] Comment on above: Order Comment: [facility] has implemented the eGFR calculation approach that does not have a coefficient for race that conforms to the NKF-ASN Task Force Recommendations. Performed By: #### 4 6449 #### LAB [address] [address] Jack Mendoza M.D. [id number] HCO3 (Bld) [Moles/Vol] 35 mmol/L High 21-32 [facility] Comment on above: Order Comment: [facility] has implemented the eGFR calculation approach that does not have a coefficient for race that conforms to the NKF-ASN Task Force Recommendations. Performed By: #### 4 6449 #### LAB [address] [address] Jack Mendoza M.D. [id number] Phosphate [Mass/Vol] 3.2 mg/dL Normal 2.7-4.5 [facility] Comment on above: Order Comment: [facility] has implemented the eGFR calculation approach that does not have a coefficient for race that conforms to the NKF-ASN Task Force Recommendations. Performed By: #### 4 6449 #### LAB [address] [address] Jack Mendoza M.D. [id number] Potassium [Moles/Vol] 5.0 mmol/L Normal 3.5-5.1 [facility] Comment on above: Order Comment: [facility] has implemented the eGFR calculation approach that does not have a coefficient for race that conforms to the NKF-ASN Task Force Recommendations. Performed By: #### 4 6449 #### LAB [address] [address] Jack Mendoza M.D. [id number] Sodium [Moles/Vol] 134 mmol/L Low 135-145 [facility] Comment on above: Order Comment: [facility] has implemented the eGFR calculation approach that does not have a coefficient for race that conforms to the NKF-ASN Task Force Recommendations. Performed By: #### 4 6449 ####[facility] [address] [address] Jack Mendoza M.D. [id number] Urea nitrogen [Mass/Vol] 17 mg/dL Normal 8-25 [facility] Comment on above: Order Comment: [facility] has implemented the eGFR calculation approach that does not have a coefficient for race that conforms to the NKF-ASN Task Force Recommendations. Performed By: #### 4 6449 ####[facility] [address] [address] Jack Mendoza M.D. [id number] Urea nitrogen/Creatinine [Mass ratio] 28.3 mg/mg High 10.0-20.0 [facility] Comment on above: Order Comment: [facility] has implemented the eGFR calculation approach that does not have a coefficient for race that conforms to the NKF-ASN Task Force Recommendations. Performed By: #### 4 6449 #### LAB [address] [address] Jack Mendoza M.D. [id number] ALPHA DEFENSINon 07-01-2025 ALPHA DEFENSIN ALPHA DEFENSIN DETECTED Alpha defensin detected suggesting the presence of infection. Additional laboratory studies are recommended. Abnormal [facility] Comment on above: Performed By: #### L [id number] ####[facility] [address] [address] Jack Mendoza M.D. [id number] BLOOD CULTURE AEROBIC/ANAERO BICon 07-01-2025 BLOOD CULTURE AEROBIC/ANAEROBIC BLOOD CULTURE No Growth after 48 hrs Normal [facility] Comment on above: Order Comment: Blood Culture sets #1 and #2 cannot be collected with the same collection times. Each set must be collected from a different site, and must have a different collection time entered that reflects the actual collection time of each set. Performed By: #### 4 4014 ####[facility] [address] [place] [address] Venancio Richardson M.D. [id number] BLOOD CULTURE AEROBIC/ANAEROBIC BLOOD CULTURE No Growth after 48 hrs [facility] Comment on above: Order Comment: Blood Culture sets #1 and #2 cannot be collected with the same collection times. Each set must be collected from a different site, and must have a different collection time entered that reflects the actual collection time of each set. Performed By: #### 4 4014 ####[facility] [address] [place] [address] Venancio Richardson M.D. [id number] CBC WITH AUTO DIFFERENTIALon 07-01-2025 AUTO NRBC 0.0 % [facility] Comment on above: Performed By: #### L [id number] ####[facility] [address] [place] [address] Jack Mendoza M.D. [id number] AUTO NRBC ABS COUNT 0.00 K/mcL Normal 0.00-0.00 [facility] Comment on above: Performed By: #### L [id number] #### LAB [address] [address] Jack Mendoza M.D. [id number] BASOPHILS ABSOLUTE COUNT 0.00 K/mcL Normal 0.00-0.30 [facility] Comment on above: Performed By: #### L [id number] #### LAB [address] [address] Jack Mendoza M.D. [id number] Basophils/100 WBC (Bld) 0.0 % [facility] Comment on above: Performed By: #### L [id number] #### LAB [address] [address] Jack Mendoza M.D. [id number] Eosinophils (Bld) [#/Vol] 0.00 10*3/uL Normal 0.00-0.50 [facility] Comment on above: Performed By: #### L [id number] #### LAB [address] [address] Jack Mendoza M.D. [id number] Eosinophils/100 WBC (Bld) 0.0 % Normal [facility] Comment on above: Performed By: #### L [id number] #### LAB [address] [address] Jack Mendoza M.D. [id number] Erythrocyte distribution width (RBC) [Ratio] 17.8 % High 11.6-14.8 [facility] Comment on above: Performed By: #### L [id number] #### LAB [address] [address] Jack Mendoza M.D. [id number] Hematocrit (Bld) [Volume fraction] 34.9 % Low 41.0-53.0 [facility] Comment on above: Performed By: #### L [id number] #### LAB [address] [address] Jack Mendoza M.D. [id number] Hemoglobin (Bld) [Mass/Vol] 10.6 g/dL Low 13.5-17.5 [facility] Comment on above: Performed By: #### L [id number] #### LAB [address] [address] Jack Mendoza M.D. [id number] IG ABSOLUTE 0.01 K/mcL Normal 0.00-0.30 [facility] Comment on above: Performed By: #### L [id number] #### LAB [address] [address] Jack Mendoza M.D. [id number] IG PERCENT 0.50 % Normal [facility] Comment on above: Result Comment: The IG parameter is the percentage of metamyelocytes, myelocytes and promyelocytes. An immature granulocyte count (IG) of 1% or more suggests the possibility of infection, an IG count of 3% is very likely related to an infection. Performed By: #### L [id number] #### LAB [address] [place] [address] Jack Mendoza M.D. [id number] Lymphocytes (Bld) [#/Vol] 0.34 10*3/uL Low 0.90-4.00 [facility] Comment on above: Performed By: #### L [id number] #### LAB [address] [address] Jack Mendoza M.D. [id number] Lymphocytes/100 WBC (Bld) 18.2 % Normal [facility] Comment on above: Performed By: #### L [id number] #### LAB [address] [address] Jack Mendoza M.D. [id number] MCH (RBC) [Entitic mass] 20.7 pg Low 26.0-34.0 [facility] Comment on above: Performed By: #### L [id number] #### LAB [address] [address] Jack Mendoza M.D. [id number] MCV (RBC) [Entitic vol] 68.3 fL Low 80.0-100.0 [facility] Comment on above: Performed By: #### L [id number] #### LAB [address] [address] Jack Mendoza M.D. [id number] MEAN CORPUSCULAR HEMOGLOBIN CONC 30.4 g/dL Low 31.0-37.0 [facility] Comment on above: Performed By: #### L [id number] #### LAB [address] [place] [address] Jack Mendoza M.D. [id number] Monocytes (Bld) [#/Vol] 0.09 10*3/uL Low 0.30-0.90 [facility] Comment on above: Performed By: #### L [id number] #### LAB [address] [place] [address] Jack Mendoza M.D. [id number] Monocytes/100 WBC (Bld) 4.8 % [facility] Comment on above: Performed By: #### L [id number] #### LAB [address] [place] [address] Jack Mendoza M.D. [id number] NEUTROPHILS ABSOLUTE COUNT 1.43 K/mcL Low 1.70-7.00 [facility] Comment on above: Performed By: #### L [id number] ####[facility] [address] [id number] Jack Mendoza M.D. [id number] Neutrophils/100 WBC (Bld) 76.5 % Normal [facility] Comment on above: Result Comment: Tiffany pheral smear reviewed manually Performed By: #### L [id number] ####[facility] [address] [address] Jack Mendoza M.D. [id number] Platelets (Bld) [#/Vol] 95 10*3/uL Low 150-400 [facility] Comment on above: Performed By: #### L [id number] ####[facility] [address] [address] Jack Mendoza M.D. [id number] RBC (Bld) [#/Vol] 5.11 10*6/uL Normal 4.50-5.90 [facility] Comment on above: Performed By: #### L [id number] ####[facility] [address] [address] Jack Mendoza M.D. [id number] WBC (Bld) [#/Vol] 1.87 10*3/uL Low 4.50-11.00 [facility] Comment on above: Performed By: #### L [id number] ####[facility] [address] [address] Jack Mendoza M.D. [id number] CONSULTon 07-01-2025 CONSULT Normal [facility] CONSULT Normal [facility] CRP, INFLAMMATIONon 07-01-20 CRP [Mass/Vol] 23.1 mg/L High 0.0-10.0 [facility] Comment on above: Performed By: #### 4 5334 ####[facility] [address] [address] Jack Mendoza M.D. [id number] DRUGS OF ABUSE SCREEN, URINE on 07-01-2025 AMPHETAMINE SCREEN, URINE Not detected Normal None Detected [facility] Comment on above: Order Comment: Scree n results should be used for treatment purposes only.Specimen will be kept for 2 weeks, if the sample is adequate. Confirmation testing can be initiated by calling the lab within 2 weeks. Result Comment: Urin e Amphetamine Cutoff: < 1000 ng/mL = None Detected Performed By: #### 4 6965 ####[facility] [address] [address] Jack Mendoza M.D. [id number] BARBITURATE SCREEN URINE Not detected Normal None Detected [facility] Comment on above: Order Comment: Scree n results should be used for treatment purposes only.Specimen will be kept for 2 weeks, if the sample is adequate. Confirmation testing can be initiated by calling the lab within 2 weeks. Result Comment: Urin e Barbiturates Cutoff: < 200 ng/mL = None Detected Performed By: #### 4 6965 ####[facility] [address] [address] Jack Mendoza M.D. [id number] BENZODIAZEPINE SCREEN, URINE Positive Abnormal None Detected [facility] Comment on above: Order Comment: Scree n results should be used for treatment purposes only.Specimen will be kept for 2 weeks, if the sample is adequate. Confirmation testing can be initiated by calling the lab within 2 weeks. Result Comment: Urin e Benzodiazepine Cutoff: < 200 ng/mL = None Detected Performed By: #### 4 6965 ####[facility] [address] [address] Jack Mendoza M.D. [id number] BUPRENORPHINE, URINE Positive Abnormal None Detected [facility] Comment on above: Order Comment: Scree n results should be used for treatment purposes only.Specimen will be kept for 2 weeks, if the sample is adequate. Confirmation testing can be initiated by calling the lab within 2 weeks. Result Comment: Urin e Buprenorphine Cutoff: < 5 ng/mL = None Detected Performed By: #### 4 6965 ####[facility] [address] [address] Jack Mendoza M.D. [id number] CANNABINOID SCREEN URINE Positive Abnormal None Detected [facility] Comment on above: Order Comment: Scree n results should be used for treatment purposes only.Specimen will be kept for 2 weeks, if the sample is adequate. Confirmation testing can be initiated by calling the lab within 2 weeks. Result Comment: Urin e Cannabinoids Cutoff: < 50 ng/mL = None Detected Performed By: #### 4 6965 ####[facility] [address] [address] Jack Mendoza M.D. [id number] COCAINE, SCREEN URINE Positive Abnormal None Detected [facility] Comment on above: Order Comment: Scree n results should be used for treatment purposes only.Specimen will be kept for 2 weeks, if the sample is adequate. Confirmation testing can be initiated by calling the lab within 2 weeks. Result Comment: Urin e Cocaine Cutoff: < 300 ng/mL = None Detected Performed By: #### 4 6965 ####[facility] [address] [place] [address] Jack Mendoza M.D. [id number] FENTANYL, URINE Not detected Normal None Detected [facility] Comment on above: Order Comment: Scree n results should be used for treatment purposes only.Specimen will be kept for 2 weeks, if the sample is adequate. Confirmation testing can be initiated by calling the lab within 2 weeks. Result Comment: Urin e Fentanyl Cutoff: < 1 ng/mL = None Detected Performed By: #### 4 6965 ####[facility] [address] [address] Jack Mendoza M.D. [id number] METHADONE SCREEN, URINE Not detected Normal None Detected [facility] Comment on above: Order Comment: Scree n results should be used for treatment purposes only.Specimen will be kept for 2 weeks, if the sample is adequate. Confirmation testing can be initiated by calling the lab within 2 weeks. Result Comment: Urin e Methadone Cutoff: < 300 ng/mL = None Detected Performed By: #### 4 6965 ####[facility] [address] [address] Jack Mnedoza M.D. [id number] OPIATE SCREEN URINE Not detected Normal None Detected [facility] Comment on above: Order Comment: Scree n results should be used for treatment purposes only.Specimen will be kept for 2 weeks, if the sample is adequate. Confirmation testing can be initiated by calling the lab within 2 weeks. Result Comment: Urin e Opiates Cutoff: < 300 ng/mL = None Detected Performed By: #### 4 6965 ####[facility] [address] [place], [place] [address] Jack Mendoza M.D. [id number] OXYCODONE SCREEN, URINE Positive Abnormal None Detected [facility] Comment on above: Order Comment: Scree n results should be used for treatment purposes only.Specimen will be kept for 2 weeks, if the sample is adequate. Confirmation testing can be initiated by calling the lab within 2 weeks. Result Comment: Urin e Oxycodone Cutoff: < 100 ng/mL = None Detected Performed By: #### 4 6965 ####[facility] [address] [place], [place] [address] Jack Mendoza M.D. [id number] ECHOCARDIOGRAM LIMITEDon ECHOCARDIOGRAM LIMITED Normal [facility] HEPATITIS A ANTIBODY, IGMon 07-01-2025 HEPATITIS A IGM ANTIBODY Equivocal Abnormal Negative [facility] Comment on above: Order Comment: Test performed using [employer] immunoassay system Result Comment: Hepa titis A IgM result is equivocal. It is recommended that a new specimen be drawn in two weeks and re-tested. Performed By: #### 4 5870 ####[facility] [address] [place], [place] [address] Venancio Richardson M.D. [id number] HEPATITIS A ANTIBODY,TOTALon 07-01-2025 HEPATITIS A TOTAL ANTIBODY Positive Abnormal Negative [facility] Comment on above: Order Comment: Test performed using [employer] immunoassay system Performed By: #### 4 5869 ####[facility] [address] [place], [place] [address] Venancio Richardson M.D. [id number] HEPATITIS B CORE ANTIBODY, T OTALon 07-01-2025 HEPATITIS B CORE TOTAL ANTIBODY Positive Abnormal Negative [facility] Comment on above: Order Comment: Test performed using [employer] immunoassay system Performed By: #### 4 5873 ####[facility] [address] [place] [address] Venancio Richardson M.D. [id number] HEPATITIS B SURFACE ANTIBODY on 07-01-2025 HEPATITIS B SURFACE ANTIBODY Positive Abnormal Negative [facility] Comment on above: Order Comment: Test performed using [employer] immunoassay system Performed By: #### 4 5876 ####[facility] [address] [place] [address] Venancio Richardson M.D. [id number] HEPATITIS B SURFACE ANTIGENo n 07-01-2025 HEPATITIS B SURFACE ANTIGEN Negative Normal Negative [facility] Comment on above: Order Comment: Test performed using [employer] immunoassay system Performed By: #### 4 4081 ####[facility] [address] [place] [address] Venancio Richardson M.D. [id number] HEPATITIS C ANTIBODYon 07-01 HEPATITIS C ANTIBODY Positive Abnormal Negative [facility] Comment on above: Order Comment: Test performed using [employer] immunoassay system Result Comment: A po sitive antibody test requires additional follow-up testing, Hepatitis C Virus Quantitation, to determine if a person is currently infected with Hepatitis C. Performed By: #### 4 5878 ####[facility] [address] [place] [address] Venancio Richardson M.D. [id number] MAGNESIUM LEVELon 07-01-2025 Magnesium [Mass/Vol] 1.9 mg/dL Normal 1.6-2.4 [facility] Comment on above: Performed By: #### 4 6109 ####[facility] [address] [place], [place] [address] Jack Mendoza M.D. [id number] OP NOTEon 07-01-2025 OP NOTE Normal [facility] Glucose [Mass/Vol] 153 mg/dL High 65- [facility] Glucose [Mass/Vol] 165 mg/dL High 65- [facility] Glucose [Mass/Vol] 146 mg/dL High 65- [facility] Glucose [Mass/Vol] 145 mg/dL High 65- [facility] RENAL FUNCTION PANELon 07-01 Albumin [Mass/Vol] 2.9 g/dL Low 3.2-5.2 [facility] Comment on above: Order Comment: [facility] has implemented the eGFR calculation approach that does not have a coefficient for race that conforms to the NKF-ASN Task Force Recommendations. Performed By: #### 4 6449 #### LAB [address] [place], [place] [address] Jack Mendoza M.D. [id number] Anion gap [Moles/Vol] 8 mmol/L Low 10-20 [facility] Comment on above: Order Comment: [facility] has implemented the eGFR calculation approach that does not have a coefficient for race that conforms to the NKF-ASN Task Force Recommendations. Performed By: #### 4 6449 #### LAB [address] [place], [place] [address] Jack Mendoza M.D. [id number] Calcium [Mass/Vol] 8.4 mg/dL Normal 8.4-10.2 [facility] Comment on above: Order Comment: [facility] has implemented the eGFR calculation approach that does not have a coefficient for race that conforms to the NKF-ASN Task Force Recommendations. Performed By: #### 4 6449 #### LAB [address] [place], [place] [address] Jack Mendoza M.D. [id number] Chloride [Moles/Vol] 95 mmol/L Low 98-108 [facility] Comment on above: Order Comment: [facility] has implemented the eGFR calculation approach that does not have a coefficient for race that conforms to the NKF-ASN Task Force Recommendations. Performed By: #### 4 6449 #### LAB [address] [place], [place] [address] Jack Mendoza M.D. [id number] Creatinine [Mass/Vol] 0.51 mg/dL Normal 0.50-1.30 [facility] Comment on above: Order Comment: [facility] has implemented the eGFR calculation approach that does not have a coefficient for race that conforms to the NKF-ASN Task Force Recommendations. Performed By: #### 4 6449 #### LAB [address] [address] Jack Mendoza M.D. [id number] EGFR 118 mL/min/1.73 m2 Normal >=60 [facility] Comment on above: Order Comment: [facility] has implemented the eGFR calculation approach that does not have a coefficient for race that conforms to the NKF-ASN Task Force Recommendations. Result Comment: Ashley mated GFR was calculated using the 2020 CKD-EPI creatinine equation. Performed By: #### 4 6449 #### LAB [address] [address] Jack Mendoza M.D. [id number] Glucose [Mass/Vol] 172 mg/dL High 65-99 [facility] Comment on above: Order Comment: [facility] has implemented the eGFR calculation approach that does not have a coefficient for race that conforms to the NKF-ASN Task Force Recommendations. Performed By: #### 4 6449 #### LAB [address] [address] Jack Mendoza M.D. [id number] HCO3 (Bld) [Moles/Vol] 36 mmol/L High 21-32 [facility] Comment on above: Order Comment: [facility] has implemented the eGFR calculation approach that does not have a coefficient for race that conforms to the NKF-ASN Task Force Recommendations. Performed By: #### 4 6449 #### LAB [address] [address] Jack Mendoza M.D. [id number] Phosphate [Mass/Vol] 2.6 mg/dL Low 2.7-4.5 [facility] Comment on above: Order Comment: [facility] has implemented the eGFR calculation approach that does not have a coefficient for race that conforms to the NKF-ASN Task Force Recommendations. Performed By: #### 4 6449 #### LAB [address] [address] Jack Mendoza M.D. [id number] Potassium [Moles/Vol] 4.5 mmol/L Normal 3.5-5.1 [facility] Comment on above: Order Comment: [facility] has implemented the eGFR calculation approach that does not have a coefficient for race that conforms to the NKF-ASN Task Force Recommendations. Performed By: #### 4 6449 #### LAB [address] [address] Jack Mendoza M.D. [id number] Sodium [Moles/Vol] 134 mmol/L Low 135-145 [facility] Comment on above: Order Comment: [facility] has implemented the eGFR calculation approach that does not have a coefficient for race that conforms to the NKF-ASN Task Force Recommendations. Performed By: #### 4 6449 #### LAB [address] [address] Jack Mendoza M.D. [id number] Urea nitrogen [Mass/Vol] 12 mg/dL Normal 8-25 [facility] Comment on above: Order Comment: [facility] has implemented the eGFR calculation approach that does not have a coefficient for race that conforms to the NKF-ASN Task Force Recommendations. Performed By: #### 4 6449 #### LAB [address] [address] Jack Mendoza M.D. [id number] Urea nitrogen/Creatinine [Mass ratio] 23.5 mg/mg High 10.0-20.0 [facility] Comment on above: Order Comment: [facility] has implemented the eGFR calculation approach that does not have a coefficient for race that conforms to the NKF-ASN Task Force Recommendations. Performed By: #### 4 6449 #### LAB [address] [place], [place] [address] Jack Mendoza M.D. [id number] SEDIMENTATION RATEon 11-10-2 025 SEDIMENTATION RATE, ERYTHROCYTE 56 mm/hr High 0-20 [facility] Comment on above: Performed By: #### 4 6477 #### LAB [address] [address] Jack Mendoza M.D. [id number] TISSUE EXAMon 07-01-2025 TISSUE EXAM Normal [facility] Comment on above: Performed By: #### 4 7015 #### LAB [address] [address] Jack Mendoza M.D. [id number] XR KNEE RIGHT 2 VIEWS (STAND NO)on 07-01-2025 XR KNEE RIGHT 2 VIEWS (STANDARD) Normal [facility] Comment on above: Order Comment: Injur y/Trauma or Illness?:Illness/OtherHow long have you had these symptoms (acute/chronic)?:AcuteReason for exam?:post op right kneeHistory of cancer?:uSurgeries, chemotherapy, or radiation?:uType of Exam?:InitialAdditional signs and symptoms?:. CBC WITH AUTO DIFFERENTIALon 06-30-2025 AUTO NRBC 0.0 % Normal [facility] Comment on above: Performed By: #### L [id number] ####[facility] LAB [address] [address] Jack Mendoza M.D. [id number] AUTO NRBC ABS COUNT 0.00 K/mcL Normal 0.00-0.00 [facility] Comment on above: Performed By: #### L [id number] ####[facility] LAB [address] [address] Jack Mendoza M.D. [id number] Erythrocyte distribution width (RBC) [Ratio] 18.8 % High 11.6-14.8 [facility] Comment on above: Performed By: #### L [id number] ####[facility] LAB [address] [address] Jack Mendoza M.D. [id number] Hematocrit (Bld) [Volume fraction] 39.1 % Low 41.0-53.0 [facility] Comment on above: Performed By: #### L [id number] #### LAB [address] [address] Jack Mendoza M.D. [id number] Hemoglobin (Bld) [Mass/Vol] 11.6 g/dL Low 13.5-17.5 [facility] Comment on above: Performed By: #### L [id number] ####[facility] LAB [address] [address] Jack Mendoza M.D. [id number] MCH (RBC) [Entitic mass] 20.7 pg Low 26.0-34.0 [facility] Comment on above: Performed By: #### L [id number] #### LAB [address] [address] Jack Mendoza M.D. [id number] MCV (RBC) [Entitic vol] 69.7 fL Low 80.0-100.0 [facility] Comment on above: Performed By: #### L [id number] #### LAB [address] [address] Jack Mendoza M.D. [id number] MEAN CORPUSCULAR HEMOGLOBIN CONC 29.7 g/dL Low 31.0-37.0 [facility] Comment on above: Performed By: #### L [id number] #### LAB [address] [address] Jack Mendoza M.D. [id number] Platelets (Bld) [#/Vol] 110 10*3/uL Low 150-400 [facility] Comment on above: Performed By: #### L [id number] #### LAB [address] [place] [address] Jack Mendoza M.D. [id number] RBC (Bld) [#/Vol] 5.61 10*6/uL Normal 4.50-5.90 [facility] Comment on above: Performed By: #### L [id number] ####[facility] LAB [address] [address] Jack Mendoza M.D. [id number] WBC (Bld) [#/Vol] 3.23 10*3/uL Low 4.50-11.00 [facility] Comment on above: Performed By: #### L [id number] #### LAB [address] [place] [address] Jack Mendoza M.D. [id number] H AND Mike 11-09-2025 H AND P Normal [facility] HEMOGLOBIN A1Con 06-30-2025 Glucose [Mass/Vol] 126 mg/dL High 74-114 [facility] Comment on above: Performed By: #### 4 8202 #### LAB [address] [address] Jack Mendoza M.D. [id number] HbA1c (Bld) [Mass fraction] 6.0 % High 4.2-5.6 [facility] Comment on above: Performed By: #### 4 8202 #### LAB [address] [address] Jack Mendoza M.D. [id number] HIV 1/2 SCREEN ( GENERA ON)on 06-30-2025 HIV 1-2 SCREEN Negative Normal Negative [facility] Comment on above: Order Comment: This assay screens for the presence of HIV-1, HIV-2 antibodies and for the presence of HIV-1 antigen.Test performed using Shen SOHAM immunoassay system Performed By: #### 4 5928 ####[facility] [address] [place] [address] Venancio Richardson M.D. [id number] MAGNESIUM LEVELon 06-30-2025 Magnesium [Mass/Vol] 1.7 mg/dL Normal 1.6-2.4 [facility] Comment on above: Performed By: #### 4 6109 ####[facility] LAB [address] [address] Jack Mendoza M.D. [id number] MANUAL DIFFERENTIALon 2024 BASOPHILS - ABS (DIFF) 0.00 K/mcL Normal 0.00-0.30 [facility] Comment on above: Performed By: #### 4 5456 ####[facility] LAB [address] [address] Jack Mendoza M.D. [id number] BASOPHILS - REL (DIFF) 0.0 % Normal [facility] Comment on above: Performed By: #### 4 5456 #### LAB [address] [address] Jack Mendoza M.D. [id number] EOSINOPHILS - ABS (DIFF) 0.00 K/mcL Normal 0.00-0.50 [facility] Comment on above: Performed By: #### 4 5456 #### LAB [address] [address] Jack Mendoza M.D. [id number] EOSINOPHILS - REL (DIFF) 0.0 % [facility] Comment on above: Performed By: #### 4 5456 #### LAB [address] [address] Jack Mendoza M.D. [id number] LYMPHOCYTE ATYPICAL - REL (DIFF) 5.0 % [facility] Comment on above: Performed By: #### 4 5456 #### LAB [address] [address] Jack Mendoza M.D. [id number] LYMPHOCYTES - ABS (DIFF) 0.74 K/mcL Low 0.90-4.00 [facility] Comment on above: Performed By: #### 4 0656 #### LAB [address] [address] Jack Mendoza M.D. [id number] LYMPHOCYTES - REL (DIFF) 18.0 % [facility] Comment on above: Performed By: #### 4 5497 #### LAB [address] [address] Jack Mendoza M.D. [id number] MONOCYTES - ABS (DIFF) 0.13 K/mcL Low 0.30-0.90 [facility] Comment on above: Performed By: #### 4 5856 #### LAB [address] [address] Jack Mendoza M.D. [id number] MONOCYTES - REL (DIFF) 4.0 % [facility] Comment on above: Performed By: #### 4 8507 #### LAB [address] [address] Jack Mendoza M.D. [id number] NEUTROPHILS - ABS (DIFF) 2.36 K/mcL Normal 1.70-7.00 [facility] Comment on above: Performed By: #### 4 5456 #### LAB [address] [address] Jack Mendoza M.D. [id number] NEUTROPHILS - REL (DIFF) 73.0 % Normal [facility] Comment on above: Performed By: #### 4 5456 ####[facility] LAB [address] [address] Jack Mendoza M.D. [id number] MORPHOLOGYon 06-30-2025 OVAL SCAN Moderate Normal [facility] Comment on above: Performed By: #### L AB295 ####[facility] LAB [address] [address] Jack Mendoza M.D. [id number] PLATELET ESTIMATE Decreased Abnormal Normal [facility] Comment on above: Performed By: #### L AB295 ####[facility] LAB [address] [address] Jack Mendoza M.D. [id number] RBC MORPH SCAN See Comment Normal [facility] Comment on above: Result Comment: RBC Indices confirmed with manual peripheral smear review. Performed By: #### L AB295 ####[facility] [address] [address] Jack Mendoza M.D. [id number] TARGET CELL SCAN Moderate Normal [facility] Comment on above: Performed By: #### L AB295 ####[facility] [address] [address] Jack Mendoza M.D. [id number] NT PRO BNPon 06-30-2025 Natriuretic peptide B (Bld) [Mass/Vol] 55 pg/mL Normal 0-300 [facility] Comment on above: Order Comment: Pride Study Cut-offsRule In:< /= 50 Years >450 pg/mL51 Years - 75 Years >900 pg/mL76 Years - 99 Years >1800 pg/mLRule Out:All patients <300 pg/mL Performed By: #### 4 7395 ####[facility] LAB [address] [address] Jack Mendoza M.D. [id number] POC [facility] Glucose [Mass/Vol] 141 mg/dL High 65-99 [facility] RENAL FUNCTION PANELon 06-30 Albumin [Mass/Vol] 3.2 g/dL Normal 3.2-5.2 [facility] Comment on above: Order Comment: [facility] has implemented the eGFR calculation approach that does not have a coefficient for race that conforms to the NKF-ASN Task Force Recommendations. Performed By: #### 4 6449 #### LAB [address] [place], [place] [address] Jack Mendoza M.D. [id number] Anion gap [Moles/Vol] 11 mmol/L Normal 10-20 [facility] Comment on above: Order Comment: [facility] has implemented the eGFR calculation approach that does not have a coefficient for race that conforms to the NKF-ASN Task Force Recommendations. Performed By: #### 4 6449 #### LAB [address] [place], [place] [address] Jack Mendoza M.D. [id number] Calcium [Mass/Vol] 8.5 mg/dL Normal 8.4-10.2 [facility] Comment on above: Order Comment: [facility] has implemented the eGFR calculation approach that does not have a coefficient for race that conforms to the NKF-ASN Task Force Recommendations. Performed By: #### 4 6449 #### LAB [address] [place], [place] [address] Jack Mendoza M.D. [id number] Chloride [Moles/Vol] 95 mmol/L Low 98-108 [facility] Comment on above: Order Comment: [facility] has implemented the eGFR calculation approach that does not have a coefficient for race that conforms to the NKF-ASN Task Force Recommendations. Performed By: #### 4 6449 #### LAB [address] [place], [place] [address] Jack Mendoza M.D. [id number] Creatinine [Mass/Vol] 0.51 mg/dL Normal 0.50-1.30 [facility] Comment on above: Order Comment: [facility] has implemented the eGFR calculation approach that does not have a coefficient for race that conforms to the NKF-ASN Task Force Recommendations. Performed By: #### 4 6449 #### LAB [address] [place], [place] [address] Jack Mendoza M.D. [id number] EGFR 118 mL/min/1.73 m2 Normal >=60 [facility] Comment on above: Order Comment: [facility] has implemented the eGFR calculation approach that does not have a coefficient for race that conforms to the NKF-ASN Task Force Recommendations. Result Comment: Ashley mated GFR was calculated using the 2020 CKD-EPI creatinine equation. Performed By: #### 4 6449 #### LAB [address] [place], [place] [address] Jack Mendoza M.D. [id number] Glucose [Mass/Vol] 122 mg/dL High 65-99 [facility] Comment on above: Order Comment: [facility] has implemented the eGFR calculation approach that does not have a coefficient for race that conforms to the NKF-ASN Task Force Recommendations. Performed By: #### 4 6449 #### LAB [address] [place], [place] [address] Jack Mendoza M.D. [id number] HCO3 (Bld) [Moles/Vol] 31 mmol/L Normal 21-32 [facility] Comment on above: Order Comment: [facility] has implemented the eGFR calculation approach that does not have a coefficient for race that conforms to the NKF-ASN Task Force Recommendations. Performed By: #### 4 6449 ####[facility] LAB [address] [place], [place] [address] Jack Mendoza M.D. [id number] Phosphate [Mass/Vol] 3.1 mg/dL Normal 2.7-4.5 [facility] Comment on above: Order Comment: [facility] has implemented the eGFR calculation approach that does not have a coefficient for race that conforms to the NKF-ASN Task Force Recommendations. Performed By: #### 4 6449 ####[facility] LAB [address] [place], [place] [address] Jack Mendoza M.D. [id number] Potassium [Moles/Vol] 5.2 mmol/L High 3.5-5.1 [facility] Comment on above: Order Comment: [facility] has implemented the eGFR calculation approach that does not have a coefficient for race that conforms to the NKF-ASN Task Force Recommendations. Result Comment: Slig htly Hemolyzed Performed By: #### 4 6449 #### LAB [address] [place], [place] [address] Jack Mendoza M.D. [id number] Sodium [Moles/Vol] 132 mmol/L Low 135-145 [facility] Comment on above: Order Comment: [facility] has implemented the eGFR calculation approach that does not have a coefficient for race that conforms to the NKF-ASN Task Force Recommendations. Performed By: #### 4 6449 #### LAB [address] [address] Jcak Mendoza M.D. [id number] Urea nitrogen [Mass/Vol] 12 mg/dL Normal 8-25 [facility] Comment on above: Order Comment: [facility] has implemented the eGFR calculation approach that does not have a coefficient for race that conforms to the NKF-ASN Task Force Recommendations. Performed By: #### 4 6449 #### LAB [address] [place], [place] [address] Jack Mendoza M.D. [id number] Urea nitrogen/Creatinine [Mass ratio] 23.5 mg/mg High 10.0-20.0 [facility] Comment on above: Order Comment: [facility] has implemented the eGFR calculation approach that does not have a coefficient for race that conforms to the NKF-ASN Task Force Recommendations. Performed By: #### 4 6449 #### LAB [address] [place], [place] [address] Jack Mendoza M.D. [id number] XR CHEST PA/APon 06-30-2025 XR CHEST PA/AP Normal [facility] Comment on above: Order Comment: Injur y/Trauma or Illness?:Illness/OtherHow long have you had these symptoms (acute/chronic)?:AcuteReason for exam?:SOB, concern for CHF exacerbationHistory of cancer?:uSurgeries, chemotherapy, or radiation?:uType of Exam?:InitialAdditional signs and symptoms?:. BASIC METABOLIC PANELon 09-09 26-2024 Anion gap [Moles/Vol] 10 mmol/L Normal 10-20 [facility] Comment on above: Order Comment: [facility] has implemented the eGFR calculation approach that does not have a coefficient for race that conforms to the NKF-ASN Task Force Recommendations. Performed By: #### 4 6124 #### LAB [address] [address] Jack Mendoza M.D. [id number] Calcium [Mass/Vol] 8.5 mg/dL Normal 8.4-10.2 [facility] Comment on above: Order Comment: [facility] has implemented the eGFR calculation approach that does not have a coefficient for race that conforms to the NKF-ASN Task Force Recommendations. Performed By: #### 4 6124 #### LAB [address] [address] Jack Mendoza M.D. [id number] Chloride [Moles/Vol] 99 mmol/L Normal 98-108 [facility] Comment on above: Order Comment: [facility] has implemented the eGFR calculation approach that does not have a coefficient for race that conforms to the NKF-ASN Task Force Recommendations. Performed By: #### 4 6124 #### LAB [address] [address] Jack Mendoza M.D. [id number] Creatinine [Mass/Vol] 0.55 mg/dL Normal 0.50-1.30 [facility] Comment on above: Order Comment: [facility] has implemented the eGFR calculation approach that does not have a coefficient for race that conforms to the NKF-ASN Task Force Recommendations. Performed By: #### 4 6124 #### LAB [address] [address] Jack Mendoza M.D. [id number] EGFR 115 mL/min/1.73 m2 Normal >=60 [facility] Comment on above: Order Comment: [facility] has implemented the eGFR calculation approach that does not have a coefficient for race that conforms to the NKF-ASN Task Force Recommendations. Result Comment: Ashley mated GFR was calculated using the 2020 CKD-EPI creatinine equation. Performed By: #### 4 6124 #### LAB [address] [address] Jack Mendoza M.D. [id number] Glucose [Mass/Vol] 115 mg/dL High 65-99 [facility] Comment on above: Order Comment: [facility] has implemented the eGFR calculation approach that does not have a coefficient for race that conforms to the NKF-ASN Task Force Recommendations. Performed By: #### 4 6124 #### LAB [address] [address] Jack Mendoza M.D. [id number] HCO3 (Bld) [Moles/Vol] 29 mmol/L Normal 21-32 [facility] Comment on above: Order Comment: [facility] has implemented the eGFR calculation approach that does not have a coefficient for race that conforms to the NKF-ASN Task Force Recommendations. Performed By: #### 4 6124 #### LAB [address] [address] Jack Mendoza M.D. [id number] Potassium [Moles/Vol] 4.4 mmol/L Normal 3.5-5.1 [facility] Comment on above: Order Comment: [facility] has implemented the eGFR calculation approach that does not have a coefficient for race that conforms to the NKF-ASN Task Force Recommendations. Performed By: #### 4 6108 #### LAB [address] [address] Jack Mendoza M.D. [id number] Sodium [Moles/Vol] 134 mmol/L Low 135-145 [facility] Comment on above: Order Comment: [facility] has implemented the eGFR calculation approach that does not have a coefficient for race that conforms to the NKF-ASN Task Force Recommendations. Performed By: #### 4 6124 #### LAB [address] [place], [place] [address] Jack Mendoza M.D. [id number] Urea nitrogen [Mass/Vol] 12 mg/dL Normal 8-25 [facility] Comment on above: Order Comment: [facility] has implemented the eGFR calculation approach that does not have a coefficient for race that conforms to the NKF-ASN Task Force Recommendations. Performed By: #### 4 6124 #### LAB [address] [place], [place] [address] Jack Mendoza M.D. [id number] Urea nitrogen/Creatinine [Mass ratio] 21.8 mg/mg High 10.0-20.0 [facility] Comment on above: Order Comment: [facility] has implemented the eGFR calculation approach that does not have a coefficient for race that conforms to the NKF-ASN Task Force Recommendations. Performed By: #### 4 6124 #### LAB [address] [place], [place] [address] Jack Mendoza M.D. [id number] Basic metabolic 2000 panelon 05-16-2025 Anion gap [Moles/Vol] 10 mmol/L 10 - 20 mmol/L [facility] Calcium [Mass/Vol] 8.5 mg/dL 8.4 - 10. 2 mg/dL [facility] Chloride [Moles/Vol] 99 mmol/L 98 - 10 8 mmol/L [facility] Creatinine [Mass/Vol] 0.55 mg/dL 0.50 - 1.30 mg/dL [facility] GFR/1.73 sq M.predicted CKD-EPI (S/P/Bld) [Vol rate/Area] 115 - PINF [facility] Comment on above: Estimated GFR was ca lculated using the 2020 CKD-EPI creatinine equation. Glucose [Mass/Vol] 115 mg/dL High 65 - 99 mg/dL [facility] HCO3 [Moles/Vol] 29 mmol/L 21 - 32 mmol/L [facility] Interpretation and review of laboratory results Abnormal [facility] Potassium [Moles/Vol] 4.4 mmol/L 3.5 - 5.1 mmol/L [facility] Sodium [Moles/Vol] 134 mmol/L Low 135 - 145 mmol/L [facility] Urea nitrogen [Mass/Vol] 12 mg/dL 8 - 25 mg/dL [facility] Urea nitrogen/Creatinine [Mass ratio] 21.8 mg/mg High 10.0 - 20.0 [facility] has implemented the eGFR calculation approach that does not have a coefficient for race that conforms to the NKF-ASN Task Force Recommendations. [facility] CBCon 05-16-2025 AUTO NRBC 0.0 % Normal [facility] Comment on above: Performed By: #### 4 5218 #### LAB [address] [address] Jack Mendoza M.D. [id number] AUTO NRBC ABS COUNT 0.00 K/mcL Normal 0.00-0.00 [facility] Comment on above: Performed By: #### 4 5218 #### LAB [address] [address] Jack Mendoza M.D. [id number] Erythrocyte distribution width (RBC) [Ratio] 15.9 % High 11.6-14.8 [facility] Comment on above: Performed By: #### 4 5218 #### LAB [address] [address] Jack Mendoza M.D. [id number] Hematocrit (Bld) [Volume fraction] 37.1 % Low 41.0-53.0 [facility] Comment on above: Performed By: #### 4 5218 #### LAB [address] [address] Jack Mendoza M.D. [id number] Hemoglobin (Bld) [Mass/Vol] 11.3 g/dL Low 13.5-17.5 [facility] Comment on above: Performed By: #### 4 5218 #### LAB [address] [address] Jack Mendoza M.D. [id number] MCH (RBC) [Entitic mass] 21.1 pg Low 26.0-34.0 [facility] Comment on above: Performed By: #### 4 5218 #### LAB [address] [address] Jack Mendoza M.D. [id number] MCV (RBC) [Entitic vol] 69.2 fL Low 80.0-100.0 [facility] Comment on above: Performed By: #### 4 5218 #### LAB [address] [address] Jack Mendoza M.D. [id number] MEAN CORPUSCULAR HEMOGLOBIN CONC 30.5 g/dL Low 31.0-37.0 [facility] Comment on above: Performed By: #### 4 5218 #### LAB [address] [address] Jack Mendoza M.D. [id number] Platelets (Bld) [#/Vol] 120 10*3/uL Low 150-400 [facility] Comment on above: Performed By: #### 4 5218 #### LAB [address] [address] Jack Mendoza M.D. [id number] RBC (Bld) [#/Vol] 5.36 10*6/uL Normal 4.50-5.90 [facility] Comment on above: Performed By: #### 4 5218 #### LAB [address] [address] Jack Mendoza M.D. [id number] WBC (Bld) [#/Vol] 3.11 10*3/uL Low 4.50-11.00 [facility] Comment on above: Performed By: #### 4 5218 #### LAB [address] [address] Jack Mendoza M.D. [id number] CBC panel Auto (Bld)on 05-16 Erythrocyte distribution width (RBC) [Entitic vol] 15.9 % High 11.6 - 14.8 % [facility] Hematocrit (Bld) [Volume fraction] 37.1 % Low 41.0 - 53.0 % [facility] Hemoglobin (Bld) [Mass/Vol] 11.3 g/dL Low 13.5 - 17.5 g/dL [facility] Interpretation and review of laboratory results Abnormal [facility] MCH (RBC) [Entitic mass] 21.1 pg Low 26.0 - 34.0 pg [facility] MCHC (RBC) [Mass/Vol] 30.5 g/dL Low 31.0 - 37.0 g/dL [facility] MCV (RBC) [Entitic vol] 69.2 fL Low 80.0 - 100.0 fL [facility] Nucleated RBC (Bld) [#/Vol] 0 10*3/uL [facility] Nucleated RBC/100 WBC (Bld) [Ratio] 0 % [facility] Platelets (Bld) [#/Vol] 120 10*3/uL Low [facility] RBC (Bld) [#/Vol] 5.36 10*6/uL [facility] WBC (Bld) [#/Vol] 3.11 10*3/uL Low [facility] eah [facility] Disch Summon 05-16-2025 Disch Summ Normal [facility] Glucose (Bld) [Mass/Vol]on 0 05-16-2025 Glucose [Mass/Vol] 99 mg/dL 65 - 99 mg/dL [facility] Interpretation and review of laboratory results Normal [facility] Glucose [Mass/Vol] 126 mg/dL High 65 - 99 mg/dL [facility] Interpretation and review of laboratory results Abnormal [facility] MAGNESIUM LEVELon 05-16-2025 Magnesium [Mass/Vol] 1.9 mg/dL Normal 1.6-2.4 [facility] Comment on above: Performed By: #### 4 6109 #### LAB [address] [place], [place] [address] Jack Mendoza M.D. [id number] Magnesium Levelon 05-16-2025 Magnesium [Mass/Vol] 1.9 mg/dL 1.6 - 2 .4 mg/dL [facility] Magnesium [Mass/Vol]on 05-16 Interpretation and review of laboratory results Normal [facility] No Panel Informationon 05-16 [facility] POC GLUCOSE - [place] 025 Glucose [Mass/Vol] 99 mg/dL Normal 65-99 [facility] Glucose [Mass/Vol] 126 mg/dL High 65-99 [facility] BASIC METABOLIC PANELon 04-23 Anion gap [Moles/Vol] 11 mmol/L Normal 10-20 [facility] Comment on above: Order Comment: [facility] has implemented the eGFR calculation approach that does not have a coefficient for race that conforms to the NKF-ASN Task Force Recommendations. Performed By: #### 4 [id number] #### LAB [address] [place], [place] [address] Jack Mendoza M.D. [id number] Calcium [Mass/Vol] 8.2 mg/dL Low 8.4-10.2 [facility] Comment on above: Order Comment: [facility] has implemented the eGFR calculation approach that does not have a coefficient for race that conforms to the NKF-ASN Task Force Recommendations. Performed By: #### 4 6124 #### LAB [address] [place] [id number] Jack Mendoza M.D. [id number] Chloride [Moles/Vol] 100 mmol/L Normal 98-108 [facility] Comment on above: Order Comment: [facility] has implemented the eGFR calculation approach that does not have a coefficient for race that conforms to the NKF-ASN Task Force Recommendations. Performed By: #### 4 6124 #### LAB [address] [place] [id number] Jack Mendoza M.D. [id number] Creatinine [Mass/Vol] 0.52 mg/dL Normal 0.50-1.30 [facility] Comment on above: Order Comment: [facility] has implemented the eGFR calculation approach that does not have a coefficient for race that conforms to the NKF-ASN Task Force Recommendations. Performed By: #### 4 6124 #### LAB [address] [place], [place] [address] Jack Mendoza M.D. [id number] EGFR 117 mL/min/1.73 m2 Normal >=60 [facility] Comment on above: Order Comment: [facility] has implemented the eGFR calculation approach that does not have a coefficient for race that conforms to the NKF-ASN Task Force Recommendations. Result Comment: Ashley mated GFR was calculated using the 2020 CKD-EPI creatinine equation. Performed By: #### 4 6124 ####[facility] LAB [address] [place] [address] Jack Mendoza M.D. [id number] Glucose [Mass/Vol] 143 mg/dL High 65-99 [facility] Comment on above: Order Comment: [facility] has implemented the eGFR calculation approach that does not have a coefficient for race that conforms to the NKF-ASN Task Force Recommendations. Performed By: #### 4 6124 ####[facility] LAB [address] [place] [address] Jack Mendoza M.D. [id number] HCO3 (Bld) [Moles/Vol] 29 mmol/L Normal 21-32 [facility] Comment on above: Order Comment: [facility] has implemented the eGFR calculation approach that does not have a coefficient for race that conforms to the NKF-ASN Task Force Recommendations. Performed By: #### 4 6124 #### LAB [address] [place] [address] Jack Mendoza M.D. [id number] Potassium [Moles/Vol] 4.3 mmol/L Normal 3.5-5.1 [facility] Comment on above: Order Comment: [facility] has implemented the eGFR calculation approach that does not have a coefficient for race that conforms to the NKF-ASN Task Force Recommendations. Performed By: #### 4 6124 ####[facility] LAB [address] [place] [address] Jack Mendoza M.D. [id number] Sodium [Moles/Vol] 136 mmol/L Normal 135-145 [facility] Comment on above: Order Comment: [facility] has implemented the eGFR calculation approach that does not have a coefficient for race that conforms to the NKF-ASN Task Force Recommendations. Performed By: #### 4 6124 ####[facility] LAB [address] [place] [address] Jack Mendoza M.D. [id number] Urea nitrogen [Mass/Vol] 12 mg/dL Normal 8-25 [facility] Comment on above: Order Comment: [facility] has implemented the eGFR calculation approach that does not have a coefficient for race that conforms to the NKF-ASN Task Force Recommendations. Performed By: #### 4 6124 #### LAB [address] [place], [place] [address] Jack Mendoza M.D. [id number] Urea nitrogen/Creatinine [Mass ratio] 23.1 mg/mg High 10.0-20.0 [facility] Comment on above: Order Comment: [facility] has implemented the eGFR calculation approach that does not have a coefficient for race that conforms to the NKF-ASN Task Force Recommendations. Performed By: #### 4 6124 #### LAB [address] [place], [place] [address] Jack Mendoza M.D. [id number] Basic metabolic 2000 panelon 05-15-2025 Anion gap [Moles/Vol] 11 mmol/L 10 - 20 mmol/L [facility] Calcium [Mass/Vol] 8.2 mg/dL Low 8.4 - 10. 2 mg/dL [facility] Chloride [Moles/Vol] 100 mmol/L 98 - 10 8 mmol/L [facility] Creatinine [Mass/Vol] 0.52 mg/dL 0.50 - 1.30 mg/dL [facility] GFR/1.73 sq M.predicted CKD-EPI (S/P/Bld) [Vol rate/Area] 117 - PINF [facility] Comment on above: Estimated GFR was ca lculated using the 2020 CKD-EPI creatinine equation. Glucose [Mass/Vol] 143 mg/dL High 65 - 99 mg/dL [facility] HCO3 [Moles/Vol] 29 mmol/L 21 - 32 mmol/L [facility] Interpretation and review of laboratory results Abnormal [facility] Potassium [Moles/Vol] 4.3 mmol/L 3.5 - 5.1 mmol/L [facility] Sodium [Moles/Vol] 136 mmol/L 135 - 145 mmol/L [facility] Urea nitrogen [Mass/Vol] 12 mg/dL 8 - 25 mg/dL [facility] Urea nitrogen/Creatinine [Mass ratio] 23.1 mg/mg High 10.0 - 20.0 [facility] has implemented the eGFR calculation approach that does not have a coefficient for race that conforms to the NKF-ASN Task Force Recommendations. [facility] CBCon 05-15-2025 AUTO NRBC 0.0 % Normal [facility] Comment on above: Performed By: #### 4 [id number] #### LAB [address] [place] [address] Jack Mendoza M.D. [id number] AUTO NRBC ABS COUNT 0.00 K/mcL Normal 0.00-0.00 [facility] Comment on above: Performed By: #### 4 [id number] ####[facility] LAB [address] [place] [address] Jack Mendoza M.D. [id number] Erythrocyte distribution width (RBC) [Ratio] 15.8 % High 11.6-14.8 [facility] Comment on above: Performed By: #### 4 [id number] ####[facility] LAB [address] [place] [address] Jack Mendoza M.D. [id number] Hematocrit (Bld) [Volume fraction] 34.7 % Low 41.0-53.0 [facility] Comment on above: Performed By: #### 4 [id number] #### LAB [address] [place] [address] Jack Mendoza M.D. [id number] Hemoglobin (Bld) [Mass/Vol] 10.4 g/dL Low 13.5-17.5 [facility] Comment on above: Performed By: #### 4 [id number] #### LAB [address] [place] [address] Jack Mendoza M.D. [id number] MCH (RBC) [Entitic mass] 20.8 pg Low 26.0-34.0 [facility] Comment on above: Performed By: #### 4 [id number] #### LAB [address] [place] [address] Jack Mendoza M.D. [id number] MCV (RBC) [Entitic vol] 69.5 fL Low 80.0-100.0 [facility] Comment on above: Performed By: #### 4 [id number] #### LAB [address] [place] [address] Jack Mendoza M.D. [id number] MEAN CORPUSCULAR HEMOGLOBIN CONC 30.0 g/dL Low 31.0-37.0 [facility] Comment on above: Performed By: #### 4 [id number] #### LAB [address] [place] [address] Jack Mendoza M.D. [id number] Platelet mean volume (Bld) [Entitic vol] 8.8 fL Low 9.4-12.4 [facility] Comment on above: Performed By: #### 4 [id number] #### LAB [address] [place] [address] Jack Mendoza M.D. [id number] Platelets (Bld) [#/Vol] 113 10*3/uL Low 150-400 [facility] Comment on above: Performed By: #### 4 [id number] #### LAB [address] [place] [address] Jack Mendoza M.D. [id number] RBC (Bld) [#/Vol] 4.99 10*6/uL Normal 4.50-5.90 [facility] Comment on above: Performed By: #### 4 [id number] #### LAB [address] [place] [address] Jack Mendoza M.D. [id number] WBC (Bld) [#/Vol] 2.55 10*3/uL Low 4.50-11.00 [facility] Comment on above: Performed By: #### 4 [id number] #### LAB [address] [place] [address] Jack Mendoza M.D. [id number] CBC panel Auto (Bld)on 05-15 Erythrocyte distribution width (RBC) [Entitic vol] 15.8 % High 11.6 - 14.8 % [facility] Hematocrit (Bld) [Volume fraction] 34.7 % Low 41.0 - 53.0 % [facility] Hemoglobin (Bld) [Mass/Vol] 10.4 g/dL Low 13.5 - 17.5 g/dL [facility] Interpretation and review of laboratory results Abnormal [facility] MCH (RBC) [Entitic mass] 20.8 pg Low 26.0 - 34.0 pg [facility] MCHC (RBC) [Mass/Vol] 30 g/dL Low 31.0 - 37.0 g/dL [facility] MCV (RBC) [Entitic vol] 69.5 fL Low 80.0 - 100.0 fL [facility] Nucleated RBC (Bld) [#/Vol] 0 10*3/uL [facility] Nucleated RBC/100 WBC (Bld) [Ratio] 0 % [facility] Platelet mean volume (Bld) [Entitic vol] 8.8 fL Low 9.4 - 12.4 fL [facility] Platelets (Bld) [#/Vol] 113 10*3/uL Low [facility] RBC (Bld) [#/Vol] 4.99 10*6/uL [facility] W[facility] (Bld) [#/Vol] 2.55 10*3/uL Low [facility] Glucose (Bld) [Mass/Vol]on 0 05-15-2025 Glucose [Mass/Vol] 186 mg/dL High 65 - 99 mg/dL [facility] Interpretation and review of laboratory results Abnormal [facility] Glucose [Mass/Vol] 135 mg/dL High 65 - 99 mg/dL [facility] Interpretation and review of laboratory results Abnormal [facility] Glucose [Mass/Vol] 124 mg/dL High 65 - 99 mg/dL [facility] Interpretation and review of laboratory results Abnormal [facility] Glucose [Mass/Vol] 127 mg/dL High 65 - 99 mg/dL [facility] Interpretation and review of laboratory results Abnormal [facility] MAGNESIUM LEVELon 05-15-2025 Magnesium [Mass/Vol] 1.9 mg/dL Normal 1.6-2.4 [facility] Comment on above: Performed By: #### 4 6109 #### LAB [address] [place], [place] [address] Jack Mendoza M.D. [id number] Magnesium Levelon 05-15-2025 Magnesium [Mass/Vol] 1.9 mg/dL 1.6 - 2 .4 mg/dL [facility] Magnesium [Mass/Vol]on 05-15 Interpretation and review of laboratory results Normal [facility] No Panel Informationon 05-15 [facility] POC GLUCOSE - [facility] 025 Glucose [Mass/Vol] 186 mg/dL High 65-99 [facility] Glucose [Mass/Vol] 135 mg/dL High 65-99 [facility] Glucose [Mass/Vol] 124 mg/dL High 65-99 [facility] Glucose [Mass/Vol] 127 mg/dL High 65- [facility] VANCOMYCIN LEVEL, RANDOMon 0 - VANCOMYCIN RANDOM 23.6 mcg/mL Normal [facility] Comment on above: Order Comment: As of 05/2022 vancomycin dosing for [facility] inpatients will be done by Bayesian dosing software rather than off traditional trough values. Please contact the site specific inpatient pharmacy before making dose changes off of trough values alone for admitted patients.No established reference range. Performed By: #### 4 [id number] #### LAB [address] [place], [place] [address] Jack Mendoza M.D. [id number] Vancomycin Level, Randomon 0 05-15-2025 Vancomycin [Mass/Vol] 23.6 mcg/mL [facility] Vancomycin [Mass/Vol]on 04-23 As of 05/2022 vancom ycin dosing for [facility] inpatients will be done by Bayesian dosing software rather than off traditional trough values. Please contact the site specific inpatient pharmacy before making dose changes off of trough values alone for admitted patients. No established reference range. [facility] BASIC METABOLIC PANELon 04-23 Anion gap [Moles/Vol] 13 mmol/L Normal 10- [facility] Comment on above: Order Comment: [facility] has implemented the eGFR calculation approach that does not have a coefficient for race that conforms to the NKF-ASN Task Force Recommendations. Performed By: #### 4 6124 ####[facility] LAB [address] [place], [place] [address] Jack Mendoza M.D. [id number] Calcium [Mass/Vol] 8.1 mg/dL Low 8.4-10.2 [facility] Comment on above: Order Comment: [facility] has implemented the eGFR calculation approach that does not have a coefficient for race that conforms to the NKF-ASN Task Force Recommendations. Performed By: #### 4 6124 ####[facility] LAB [address] [place], [place] [address] Jack Mendoza M.D. [id number] Chloride [Moles/Vol] 99 mmol/L Normal 98-108 [facility] Comment on above: Order Comment: [facility] has implemented the eGFR calculation approach that does not have a coefficient for race that conforms to the NKF-ASN Task Force Recommendations. Performed By: #### 4 6124 #### LAB [address] [place] [address] Jack Mendoza M.D. [id number] Creatinine [Mass/Vol] 0.57 mg/dL Normal 0.50-1.30 [facility] Comment on above: Order Comment: [facility] has implemented the eGFR calculation approach that does not have a coefficient for race that conforms to the NKF-ASN Task Force Recommendations. Performed By: #### 4 6124 #### LAB [address] [place] [address] Jack Mendoza M.D. [id number] EGFR 114 mL/min/1.73 m2 Normal >=60 [facility] Comment on above: Order Comment: [facility] has implemented the eGFR calculation approach that does not have a coefficient for race that conforms to the NKF-ASN Task Force Recommendations. Result Comment: Ashley mated GFR was calculated using the 2020 CKD-EPI creatinine equation. Performed By: #### 4 6124 #### LAB [address] [place] [address] Jack Mendoza M.D. [id number] Glucose [Mass/Vol] 170 mg/dL High 65-99 [facility] Comment on above: Order Comment: [facility] has implemented the eGFR calculation approach that does not have a coefficient for race that conforms to the NKF-ASN Task Force Recommendations. Performed By: #### 4 6124 #### LAB [address] [place] [address] aJck Mendoza M.D. [id number] HCO3 (Bld) [Moles/Vol] 26 mmol/L Normal 21-32 [facility] Comment on above: Order Comment: [facility] has implemented the eGFR calculation approach that does not have a coefficient for race that conforms to the NKF-ASN Task Force Recommendations. Performed By: #### 4 6124 #### LAB [address] [place] [address] Jack Mendoza M.D. [id number] Potassium [Moles/Vol] 4.1 mmol/L Normal 3.5-5.1 [facility] Comment on above: Order Comment: [facility] has implemented the eGFR calculation approach that does not have a coefficient for race that conforms to the NKF-ASN Task Force Recommendations. Performed By: #### 4 6124 #### LAB [address] [place] [address] Jack Mendoza M.D. [id number] Sodium [Moles/Vol] 134 mmol/L Low 135-145 [facility] Comment on above: Order Comment: [facility] has implemented the eGFR calculation approach that does not have a coefficient for race that conforms to the NKF-ASN Task Force Recommendations. Performed By: #### 4 6124 #### LAB [address] [place] [address] Jack Mendoza M.D. [id number] Urea nitrogen [Mass/Vol] 13 mg/dL Normal 8-25 [facility] Comment on above: Order Comment: [facility] has implemented the eGFR calculation approach that does not have a coefficient for race that conforms to the NKF-ASN Task Force Recommendations. Performed By: #### 4 6124 #### LAB [address] [place] [address] Jack Mendoza M.D. [id number] Urea nitrogen/Creatinine [Mass ratio] 22.8 mg/mg High 10.0-20.0 [facility] Comment on above: Order Comment: [facility] has implemented the eGFR calculation approach that does not have a coefficient for race that conforms to the NKF-ASN Task Force Recommendations. Performed By: #### 4 6124 #### LAB [address] [place] [address] Jack Mendoza M.D. [id number] Basic metabolic 2000 panelon 05-14-2025 Anion gap [Moles/Vol] 13 mmol/L 10 - 20 mmol/L [facility] Calcium [Mass/Vol] 8.1 mg/dL Low 8.4 - 10. 2 mg/dL [facility] Chloride [Moles/Vol] 99 mmol/L 98 - 10 8 mmol/L [facility] Creatinine [Mass/Vol] 0.57 mg/dL 0.50 - 1.30 mg/dL [facility] GFR/1.73 sq M.predicted CKD-EPI (S/P/Bld) [Vol rate/Area] 114 - PINF [facility] Comment on above: Estimated GFR was ca lculated using the 2020 CKD-EPI creatinine equation. Glucose [Mass/Vol] 170 mg/dL High 65 - 99 mg/dL [facility] HCO3 [Moles/Vol] 26 mmol/L 21 - 32 mmol/L [facility] Interpretation and review of laboratory results Abnormal [facility] Potassium [Moles/Vol] 4.1 mmol/L 3.5 - 5.1 mmol/L [facility] Sodium [Moles/Vol] 134 mmol/L Low 135 - 145 mmol/L [facility] Urea nitrogen [Mass/Vol] 13 mg/dL 8 - 25 mg/dL [facility] Urea nitrogen/Creatinine [Mass ratio] 22.8 mg/mg High 10.0 - 20.0 [facility] has implemented the eGFR calculation approach that does not have a coefficient for race that conforms to the NKF-ASN Task Force Recommendations. [facility] CBCon 05-14-2025 AUTO NRBC 0.0 % Normal [facility] Comment on above: Performed By: #### 4 [id number] ####[facility] [address] [place], [place] [address] Jack Mendoza M.D. [id number] AUTO NRBC ABS COUNT 0.00 K/mcL Normal 0.00-0.00 [facility] Comment on above: Performed By: #### 4 [id number] ####[facility] [address] [place], [place] [address] Jack Mendoza M.D. [id number] Erythrocyte distribution width (RBC) [Ratio] 15.5 % High 11.6-14.8 [facility] Comment on above: Performed By: #### 4 [id number] #### LAB [address] [place] [address] Jack Mendoza M.D. [id number] Hematocrit (Bld) [Volume fraction] 35.0 % Low 41.0-53.0 [facility] Comment on above: Performed By: #### 4 [id number] #### LAB [address] [place] [address] Jack Mendoza M.D. [id number] Hemoglobin (Bld) [Mass/Vol] 10.4 g/dL Low 13.5-17.5 [facility] Comment on above: Performed By: #### 4 [id number] #### LAB [address] [place] [address] Jack Mendoza M.D. [id number] MCH (RBC) [Entitic mass] 20.5 pg Low 26.0-34.0 [facility] Comment on above: Performed By: #### 4 [id number] #### LAB [address] [place] [address] Jack Mendoza M.D. [id number] MCV (RBC) [Entitic vol] 68.9 fL Low 80.0-100.0 [facility] Comment on above: Performed By: #### 4 [id number] #### LAB [address] [place] [address] Jack Mendoza M.D. [id number] MEAN CORPUSCULAR HEMOGLOBIN CONC 29.7 g/dL Low 31.0-37.0 [facility] Comment on above: Performed By: #### 4 [id number] #### LAB [address] [place] [address] Jack Mendoza M.D. [id number] Platelets (Bld) [#/Vol] 111 10*3/uL Low 150-400 [facility] Comment on above: Performed By: #### 4 [id number] #### LAB [address] [place] [address] Jack Mendoza M.D. [id number] RBC (Bld) [#/Vol] 5.08 10*6/uL Normal 4.50-5.90 [facility] Comment on above: Performed By: #### 4 [id number] #### LAB [address] [place], [place] [address] Jack Mendoza M.D. [id number] WBC (Bld) [#/Vol] 2.80 10*3/uL Low 4.50-11.00 [facility] Comment on above: Performed By: #### 4 [id number] #### LAB [address] [place], [place] [address] Jack Mendoza M.D. [id number] CBC panel Auto (Bld)on 05-14 Erythrocyte distribution width (RBC) [Entitic vol] 15.5 % High 11.6 - 14.8 % [facility] Hematocrit (Bld) [Volume fraction] 35 % Low 41.0 - 53.0 % [facility] Hemoglobin (Bld) [Mass/Vol] 10.4 g/dL Low 13.5 - 17.5 g/dL [facility] Interpretation and review of laboratory results Abnormal [facility] MCH (RBC) [Entitic mass] 20.5 pg Low 26.0 - 34.0 pg [facility] MCHC (RBC) [Mass/Vol] 29.7 g/dL Low 31.0 - 37.0 g/dL [facility] MCV (RBC) [Entitic vol] 68.9 fL Low 80.0 - 100.0 fL [facility] Nucleated RBC (Bld) [#/Vol] 0 10*3/uL [facility] Nucleated RBC/100 WBC (Bld) [Ratio] 0 % [facility] Platelets (Bld) [#/Vol] 111 10*3/uL Low [facility] RBC (Bld) [#/Vol] 5.08 10*6/uL [facility]alth WBC (Bld) [#/Vol] 2.8 10*3/uL Low [facility]th [facility] Glucose (Bld) [Mass/Vol]on 05-14-2025 Glucose [Mass/Vol] 143 mg/dL High 65 - 99 mg/dL [facility] Interpretation and review of laboratory results Abnormal [facility] Glucose [Mass/Vol] 121 mg/dL High 65 - 99 mg/dL [facility] Interpretation and review of laboratory results Abnormal [facility] Glucose [Mass/Vol] 260 mg/dL High 65 - 99 mg/dL [facility] Interpretation and review of laboratory results Abnormal [facility] Glucose [Mass/Vol] 120 mg/dL High 65 - 99 mg/dL [facility] Interpretation and review of laboratory results Abnormal [facility] MAGNESIUM LEVELon 05-14-2025 Magnesium [Mass/Vol] 1.8 mg/dL Normal 1.6-2.4 [facility] Comment on above: Performed By: #### 4 [id number] #### LAB [address] [place], [place] [address] Jack Mendoza M.D. [id number] Magnesium Levelon 05-14-2025 Magnesium [Mass/Vol] 1.8 mg/dL 1.6 - 2 .4 mg/dL [facility] Magnesium [Mass/Vol]on 05-14 Interpretation and review of laboratory results Normal [facility] No Panel Informationon 05-14 [facility] Glucose [Mass/Vol] 143 mg/dL High 65-99 [facility] Glucose [Mass/Vol] 121 mg/dL High 65-99 [facility] Glucose [Mass/Vol] 260 mg/dL High 65-99 [facility] Glucose [Mass/Vol] 120 mg/dL High 65-99 [facility] ALPHA DEFENSINon 05-13-2025 ALPHA DEFENSIN ALPHA DEFENSIN DETECTED Alpha defensin detected suggesting the presence of infection. Additional laboratory studies are recommended. Abnormal [facility] Comment on above: Performed By: #### L [id number] #### LAB [address] [place], [place] [address] Jack Mendoza M.D. [id number] Alpha defensinOrdered By: Marlen Mcintyre on 05-13-2025 Alpha Defensin Detected Abnormal Not Detected [facility] Comment on above: Alpha defensin detec quan suggesting the presence of infection. Additional laboratory studies are recommended. Interpretation and review of laboratory results Abnormal [facility] BASIC METABOLIC PANELon 04-23 Anion gap [Moles/Vol] 12 mmol/L Normal 10-20 [facility] Comment on above: Order Comment: [facility] has implemented the eGFR calculation approach that does not have a coefficient for race that conforms to the NKF-ASN Task Force Recommendations. Performed By: #### 4 [id number] #### LAB [address] [place] [address] Jack Mendoza M.D. [id number] Calcium [Mass/Vol] 8.2 mg/dL Low 8.4-10.2 [facility] Comment on above: Order Comment: [facility] has implemented the eGFR calculation approach that does not have a coefficient for race that conforms to the NKF-ASN Task Force Recommendations. Performed By: #### 4 6124 #### LAB [address] [address] Jack Mendoza M.D. [id number] Chloride [Moles/Vol] 97 mmol/L Low 98-108 [facility] Comment on above: Order Comment: [facility] has implemented the eGFR calculation approach that does not have a coefficient for race that conforms to the NKF-ASN Task Force Recommendations. Performed By: #### 4 6124 #### LAB [address] [address] Jack Mendoza M.D. [id number] Creatinine [Mass/Vol] 0.64 mg/dL Normal 0.50-1.30 [facility] Comment on above: Order Comment: [facility] has implemented the eGFR calculation approach that does not have a coefficient for race that conforms to the NKF-ASN Task Force Recommendations. Performed By: #### 4 6124 #### LAB [address] [address] Jack Mendoza M.D. [id number] EGFR 110 mL/min/1.73 m2 Normal >=60 [facility] Comment on above: Order Comment: [facility] has implemented the eGFR calculation approach that does not have a coefficient for race that conforms to the NKF-ASN Task Force Recommendations. Result Comment: Ashley mated GFR was calculated using the 2020 CKD-EPI creatinine equation. Performed By: #### 4 6124 #### LAB [address] [address] Jack Mendoza M.D. [id number] Glucose [Mass/Vol] 102 mg/dL High 65-99 [facility] Comment on above: Order Comment: [facility] has implemented the eGFR calculation approach that does not have a coefficient for race that conforms to the NKF-ASN Task Force Recommendations. Performed By: #### 4 6124 #### LAB [address] [address] Jack Mendoza M.D. [id number] HCO3 (Bld) [Moles/Vol] 30 mmol/L Normal 21-32 [facility] Comment on above: Order Comment: [facility] has implemented the eGFR calculation approach that does not have a coefficient for race that conforms to the NKF-ASN Task Force Recommendations. Performed By: #### 4 6124 #### LAB [address] [address] Jack Mendoza M.D. [id number] Potassium [Moles/Vol] 3.4 mmol/L Low 3.5-5.1 [facility] Comment on above: Order Comment: [facility] has implemented the eGFR calculation approach that does not have a coefficient for race that conforms to the NKF-ASN Task Force Recommendations. Performed By: #### 4 6124 #### LAB [address] [address] Jack Mendoza M.D. [id number] Sodium [Moles/Vol] 136 mmol/L Normal 135-145 [facility] Comment on above: Order Comment: [facility] has implemented the eGFR calculation approach that does not have a coefficient for race that conforms to the NKF-ASN Task Force Recommendations. Performed By: #### 4 6124 #### LAB [address] [address] Jack Mendoza M.D. [id number] Urea nitrogen [Mass/Vol] 11 mg/dL Normal 8-25 [facility] Comment on above: Order Comment: [facility] has implemented the eGFR calculation approach that does not have a coefficient for race that conforms to the NKF-ASN Task Force Recommendations. Performed By: #### 4 6124 #### LAB [address], [place] [address] Jack Mendoza M.D. [id number] Urea nitrogen/Creatinine [Mass ratio] 17.2 mg/mg Normal 10.0-20.0 [facility] Comment on above: Order Comment: [facility] has implemented the eGFR calculation approach that does not have a coefficient for race that conforms to the NKF-ASN Task Force Recommendations. Performed By: #### 4 6124 #### LAB [address], [place] [address] Jack Mendoza M.D. [id number] Basic metabolic 2000 panelon 05-13-2025 Anion gap [Moles/Vol] 12 mmol/L 10 - 20 mmol/L [facility] Calcium [Mass/Vol] 8.2 mg/dL Low 8.4 - 10. 2 mg/dL [facility] Chloride [Moles/Vol] 97 mmol/L Low 98 - 10 8 mmol/L [facility] Creatinine [Mass/Vol] 0.64 mg/dL 0.50 - 1.30 mg/dL [facility] GFR/1.73 sq M.predicted CKD-EPI (S/P/Bld) [Vol rate/Area] 110 - PINF [facility] Comment on above: Estimated GFR was ca lculated using the 2020 CKD-EPI creatinine equation. Glucose [Mass/Vol] 102 mg/dL High 65 - 99 mg/dL [facility] HCO3 [Moles/Vol] 30 mmol/L 21 - 32 mmol/L [facility] Interpretation and review of laboratory results Abnormal [facility] Potassium [Moles/Vol] 3.4 mmol/L Low 3.5 - 5.1 mmol/L [facility] Sodium [Moles/Vol] 136 mmol/L 135 - 145 mmol/L [facility] Urea nitrogen [Mass/Vol] 11 mg/dL 8 - 25 mg/dL [facility] Urea nitrogen/Creatinine [Mass ratio] 17.2 mg/mg 10.0 - 20.0 [facility] has implemented the eGFR calculation approach that does not have a coefficient for race that conforms to the NKF-ASN Task Force Recommendations. [facility] CBCon 05-13-2025 AUTO NRBC 0.0 % Normal [facility] Comment on above: Performed By: #### 4 [id number] #### LAB [address] [address] Jack Mendoza M.D. [id number] AUTO NRBC ABS COUNT 0.00 K/mcL Normal 0.00-0.00 [facility] Comment on above: Performed By: #### 4 [id number] #### LAB [address] [address] Jack Mendoza M.D. [id number] Erythrocyte distribution width (RBC) [Ratio] 15.4 % High 11.6-14.8 [facility] Comment on above: Performed By: #### 4 [id number] #### LAB [address] [address] Jack Mendoza M.D. [id number] Hematocrit (Bld) [Volume fraction] 35.3 % Low 41.0-53.0 [facility] Comment on above: Performed By: #### 4 [id number] #### LAB [address] [address] Jack Mendoza M.D. [id number] Hemoglobin (Bld) [Mass/Vol] 10.7 g/dL Low 13.5-17.5 [facility] Comment on above: Performed By: #### 4 [id number] #### LAB [address] [address] Jack Mendoza M.D. [id number] MCH (RBC) [Entitic mass] 20.7 pg Low 26.0-34.0 [facility] Comment on above: Performed By: #### 4 [id number] #### LAB [address] [address] Jack Mendoza M.D. [id number] MCV (RBC) [Entitic vol] 68.4 fL Low 80.0-100.0 [facility] Comment on above: Performed By: #### 4 [id number] #### LAB [address] [address] Jack Mendoza M.D. [id number] MEAN CORPUSCULAR HEMOGLOBIN CONC 30.3 g/dL Low 31.0-37.0 [facility] Comment on above: Performed By: #### 4 [id number] #### LAB [address] [address] Jack Mendoza M.D. [id number] Platelets (Bld) [#/Vol] 115 10*3/uL Low 150-400 [facility] Comment on above: Performed By: #### 4 [id number] #### LAB [address] [address] Jack Mendoza M.D. [id number] RBC (Bld) [#/Vol] 5.16 10*6/uL Normal 4.50-5.90 [facility] Comment on above: Performed By: #### 4 [id number] #### LAB [address] [address] Jack Mendoza M.D. [id number] WBC (Bld) [#/Vol] 2.82 10*3/uL Low 4.50-11.00 [facility] Comment on above: Performed By: #### 4 [id number] #### LAB [address] [address] Jack Mendoza M.D. [id number] CBC panel Auto (Bld)on 05-13 Erythrocyte distribution width (RBC) [Entitic vol] 15.4 % High 11.6 - 14.8 % [facility] Hematocrit (Bld) [Volume fraction] 35.3 % Low 41.0 - 53.0 % [facility] Hemoglobin (Bld) [Mass/Vol] 10.7 g/dL Low 13.5 - 17.5 g/dL [facility] Interpretation and review of laboratory results Abnormal [facility] MCH (RBC) [Entitic mass] 20.7 pg Low 26.0 - 34.0 pg [facility] MCHC (RBC) [Mass/Vol] 30.3 g/dL Low 31.0 - 37.0 g/dL [facility] MCV (RBC) [Entitic vol] 68.4 fL Low 80.0 - 100.0 fL [facility] Nucleated RBC (Bld) [#/Vol] 0 10*3/uL [facility] Nucleated RBC/100 WBC (Bld) [Ratio] 0 % [facility] Platelets (Bld) [#/Vol] 115 10*3/uL Low [facility] RBC (Bld) [#/Vol] 5.16 10*6/uL [facility] WBC (Bld) [#/Vol] 2.82 10*3/uL Low [facility] Glucose (Bld) [Mass/Vol]on 0 05-13-2025 Glucose [Mass/Vol] 180 mg/dL High 65 - 99 mg/dL [facility] Interpretation and review of laboratory results Abnormal [facility] Glucose [Mass/Vol] 97 mg/dL 65 - 99 mg/dL [facility] Interpretation and review of laboratory results Normal [facility] Glucose [Mass/Vol] 102 mg/dL High 65 - 99 mg/dL [facility] Interpretation and review of laboratory results Abnormal [facility] Glucose [Mass/Vol] 100 mg/dL High 65 - 99 mg/dL [facility] Interpretation and review of laboratory results Abnormal [facility] MAGNESIUM LEVELon 05-13-2025 Magnesium [Mass/Vol] 1.7 mg/dL Normal 1.6-2.4 [facility] Comment on above: Performed By: #### 4 6109 ####[facility] [address], [place] [address] Jack Mendoza M.D. [id number] MRSA DNA Amplified ProbeOrde red By: Brianna Predum on 05-13-2025 MRSA DNA HERMAN+probe Ql (Unsp spec) Not detected Not Detected, MRSA NEGATIVE [facility] MRSA DNA HERMAN+probe Ql (Unsp spec)Ordered By: Brianna Predum on 05-13-2025 Interpretation and review of laboratory results Normal [facility] Magnesium Levelon 05-13-2025 Magnesium [Mass/Vol] 1.7 mg/dL 1.6 - 2 .4 mg/dL [facility] Magnesium [Mass/Vol]on 05-13 Interpretation and review of laboratory results Normal [facility] No Panel Informationon 05-13 [facility] OP NOTEon 05-13-2025 OP NOTE Normal [facility] POC GLUCOSE - Shannon 025 Glucose [Mass/Vol] 180 mg/dL High 65-99 [facility] Glucose [Mass/Vol] 97 mg/dL Normal 65-99 [facility] Glucose [Mass/Vol] 102 mg/dL High 65-99 [facility] Glucose [Mass/Vol] 100 mg/dL High 65-99 [facility] SURGICAL SITE AEROBIC AND AN AEROBIC CULTUREon 05-13-2025 SURGICAL SITE AEROBIC AND ANAEROBIC CULTURE CULTURE No Anaerobic Growth after 5 days CORYNEBACTERIUM SPECIES Rare growth Corynebacterium species, not JK GRAM STAIN RESULT Many WBC Many RBC No Organisms Seen Abnormal [facility] Comment on above: Performed By: #### L [id number] ####[facility] [address] [place] [address] Venancio Richardsno M.D. [id number] SURGICAL SITE AEROBIC AND ANAEROBIC CULTURE CULTURE No Anaerobic Growth after 5 days CORYNEBACTERIUM SPECIES Rare growth Corynebacterium species, not JK GRAM STAIN RESULT Moderate WBC No Organisms Seen Abnormal [facility] Comment on above: Performed By: #### L [id number] ####[facility] [address] [place] [address] Venancio Richardson M.D. [id number] SURGICAL SITE AEROBIC AND ANAEROBIC CULTURE CULTURE No Growth after 5 days GRAM STAIN RESULT Moderate WBC Many RBC No Organisms Seen Normal [facility] Comment on above: Performed By: #### L [id number] ####[facility] [address] [place], [place] [id number] Venancio Richardson M.D. [id number] SURGICAL SITE AEROBIC AND ANAEROBIC CULTURE CULTURE No Growth after 5 days GRAM STAIN RESULT Few WBC Many RBC No Organisms Seen Normal [facility] Comment on above: Performed By: #### L [id number] ####[facility] [address] [place], [place] [id number] Venancio Richardson M.D. [id number] VANCOMYCIN LEVEL, RANDOMon 0 05-13-2025 VANCOMYCIN RANDOM 23.7 mcg/mL Normal [facility] Comment on above: Order Comment: As of 05/2022 vancomycin dosing for [facility] inpatients will be done by Bayesian dosing software rather than off traditional trough values. Please contact the site specific inpatient pharmacy before making dose changes off of trough values alone for admitted patients.No established reference range. Performed By: #### 4 [id number] #### LAB [address] [place], [place] [address] Jack Mendoza M.D. [id number] Vancomycin Level, Randomon 0 05-13-2025 Vancomycin [Mass/Vol] 23.7 mcg/mL [facility] Vancomycin [Mass/Vol]on 04-23 As of 05/2022 vancom ycin dosing for [facility] inpatients will be done by Bayesian dosing software rather than off traditional trough values. Please contact the site specific inpatient pharmacy before making dose changes off of trough values alone for admitted patients. No established reference range. [facility] BASIC METABOLIC PANELon 04-23 Anion gap [Moles/Vol] 14 mmol/L Normal 10-20 [facility] Comment on above: Order Comment: [facility] has implemented the eGFR calculation approach that does not have a coefficient for race that conforms to the NKF-ASN Task Force Recommendations. Performed By: #### 4 6124 #### LAB [address] [place], [place] [address] Jack Mendoza M.D. [id number] Calcium [Mass/Vol] 8.5 mg/dL Normal 8.4-10.2 [facility] Comment on above: Order Comment: [facility] has implemented the eGFR calculation approach that does not have a coefficient for race that conforms to the NKF-ASN Task Force Recommendations. Performed By: #### 4 6124 #### LAB [address], [place] [address] Jack Mendoza M.D. [id number] Chloride [Moles/Vol] 99 mmol/L Normal 98-108 [facility] Comment on above: Order Comment: [facility] has implemented the eGFR calculation approach that does not have a coefficient for race that conforms to the NKF-ASN Task Force Recommendations. Performed By: #### 4 6124 ####[facility] [address], [place] [address] Jack Mendoza M.D. [id number] Creatinine [Mass/Vol] 0.60 mg/dL Normal 0.50-1.30 [facility] Comment on above: Order Comment: [facility] has implemented the eGFR calculation approach that does not have a coefficient for race that conforms to the NKF-ASN Task Force Recommendations. Performed By: #### 4 6124 #### LAB [address] [address] Jack Mendoza M.D. [id number] EGFR 112 mL/min/1.73 m2 Normal >=60 [facility] Comment on above: Order Comment: [facility] has implemented the eGFR calculation approach that does not have a coefficient for race that conforms to the NKF-ASN Task Force Recommendations. Result Comment: Ashley mated GFR was calculated using the 2020 CKD-EPI creatinine equation. Performed By: #### 4 6124 #### LAB [address] [address] Jack Mendoza M.D. [id number] Glucose [Mass/Vol] 178 mg/dL High 65-99 [facility] Comment on above: Order Comment: [facility] has implemented the eGFR calculation approach that does not have a coefficient for race that conforms to the NKF-ASN Task Force Recommendations. Performed By: #### 4 6124 #### LAB [address] [address] Jack Mendoza M.D. [id number] HCO3 (Bld) [Moles/Vol] 26 mmol/L Normal 21-32 [facility] Comment on above: Order Comment: [facility] has implemented the eGFR calculation approach that does not have a coefficient for race that conforms to the NKF-ASN Task Force Recommendations. Performed By: #### 4 6124 #### LAB [address] [address] Jack Mendoza M.D. [id number] Potassium [Moles/Vol] 3.6 mmol/L Normal 3.5-5.1 [facility] Comment on above: Order Comment: [facility] has implemented the eGFR calculation approach that does not have a coefficient for race that conforms to the NKF-ASN Task Force Recommendations. Performed By: #### 4 6124 #### LAB [address] [place], [place] [address] Jack Mendoza M.D. [id number] Sodium [Moles/Vol] 135 mmol/L Normal 135-145 [facility] Comment on above: Order Comment: [facility] has implemented the eGFR calculation approach that does not have a coefficient for race that conforms to the NKF-ASN Task Force Recommendations. Performed By: #### 4 6124 #### LAB [address] [address] Jack Mendoza M.D. [id number] Urea nitrogen [Mass/Vol] 12 mg/dL Normal 8-25 [facility] Comment on above: Order Comment: [facility] has implemented the eGFR calculation approach that does not have a coefficient for race that conforms to the NKF-ASN Task Force Recommendations. Performed By: #### 4 6124 #### LAB [address] [address] Jack Mendoza M.D. [id number] Urea nitrogen/Creatinine [Mass ratio] 20.0 mg/mg Normal 10.0-20.0 [facility] Comment on above: Order Comment: [facility] has implemented the eGFR calculation approach that does not have a coefficient for race that conforms to the NKF-ASN Task Force Recommendations. Performed By: #### 4 6124 #### LAB [address] [address] Jack Mendoza M.D. [id number] Basic metabolic 2000 panelon 05-12-2025 Anion gap [Moles/Vol] 14 mmol/L 10 - 20 mmol/L [facility] Calcium [Mass/Vol] 8.5 mg/dL 8.4 - 10. 2 mg/dL [facility] Chloride [Moles/Vol] 99 mmol/L 98 - 10 8 mmol/L [facility] Creatinine [Mass/Vol] 0.6 mg/dL 0.50 - 1.30 mg/dL [facility] GFR/1.73 sq M.predicted CKD-EPI (S/P/Bld) [Vol rate/Area] 112 - PINF [facility] Comment on above: Estimated GFR was ca lculated using the 2020 CKD-EPI creatinine equation. Glucose [Mass/Vol] 178 mg/dL High 65 - 99 mg/dL [facility] HCO3 [Moles/Vol] 26 mmol/L 21 - 32 mmol/L [facility] Interpretation and review of laboratory results Abnormal [facility] Potassium [Moles/Vol] 3.6 mmol/L 3.5 - 5.1 mmol/L [facility] Sodium [Moles/Vol] 135 mmol/L 135 - 145 mmol/L [facility] Urea nitrogen [Mass/Vol] 12 mg/dL 8 - 25 mg/dL [facility] Urea nitrogen/Creatinine [Mass ratio] 20 mg/mg 10.0 - 20.0 [facility] has implemented the eGFR calculation approach that does not have a coefficient for race that conforms to the NKF-ASN Task Force Recommendations. [facility] CBC Auto Differentialon 04-23 Basophils (Bld) [#/Vol] 0.01 10*3/uL [facility] Basophils/100 WBC (Bld) 0.3 % [facility] Eosinophils (Bld) [#/Vol] 0.1 10*3/uL [facility] Eosinophils/100 WBC (Bld) 3.4 % [facility] Erythrocyte distribution width (RBC) [Entitic vol] 15.7 % High 11.6 - 14.8 % [facility] Hematocrit (Bld) [Volume fraction] 36 % Low 41.0 - 53.0 % [facility] Hemoglobin (Bld) [Mass/Vol] 10.9 g/dL Low 13.5 - 17.5 g/dL [facility] Immature granulocytes (Bld) [#/Vol] 0.01 10*3/uL [facility] Immature granulocytes/100 WBC (Bld) 0.3 % [facility] Comment on above: The IG parameter is the percentage of metamyelocytes, myelocytes and promyelocytes. An immature granulocyte count (IG) of 1% or more suggests the possibility of infection, an IG count of 3% is very likely related to an infection. Interpretation and review of laboratory results Abnormal [facility] Lymphocytes (Bld) [#/Vol] 0.63 10*3/uL Low [facility] Lymphocytes/100 WBC (Bld) 21.3 % [facility] MCH (RBC) [Entitic mass] 21 pg Low 26.0 - 34.0 pg [facility] MCHC (RBC) [Mass/Vol] 30.3 g/dL Low 31.0 - 37.0 g/dL [facility] MCV (RBC) [Entitic vol] 69.4 fL Low 80.0 - 100.0 fL [facility] Monocytes (Bld) [#/Vol] 0.26 10*3/uL Low [facility] Monocytes/100 WBC (Bld) 8.8 % [facility] Neutrophils (Bld) [#/Vol] 1.95 10*3/uL [facility] Neutrophils/100 WBC (Bld) 65.9 % [facility] Nucleated RBC (Bld) [#/Vol] 0 10*3/uL [facility] Nucleated RBC/100 WBC (Bld) [Ratio] 0 % [facility] Platelets (Bld) [#/Vol] 117 10*3/uL Low [facility] RBC (Bld) [#/Vol] 5.19 10*6/uL [facility] W[facility] (Bld) [#/Vol] 2.96 10*3/uL Low [facility] WITH AUTO DIFFERENTIALon 05-12-2025 AUTO NRBC 0.0 % [facility] Comment on above: Performed By: #### L [id number] #### LAB [address] [address] Jack Mendoza M.D. [id number] AUTO NRBC ABS COUNT 0.00 K/mcL Normal 0.00-0.00 [facility] Comment on above: Performed By: #### L [id number] #### LAB [address] [place], [place] [address] Jack Mendoza M.D. [id number] BASOPHILS ABSOLUTE COUNT 0.01 K/mcL Normal 0.00-0.30 [facility] Comment on above: Performed By: #### L [id number] #### LAB [address] [place], [place] [address] Jack Mendoza M.D. [id number] Basophils/100 WBC (Bld) 0.3 % [facility] Comment on above: Performed By: #### L [id number] #### LAB [address] [address] Jack Mendoza M.D. [id number] Eosinophils (Bld) [#/Vol] 0.10 10*3/uL Normal 0.00-0.50 [facility] Comment on above: Performed By: #### L [id number] #### LAB [address] [address] Jack Mendoza M.D. [id number] Eosinophils/100 WBC (Bld) 3.4 % Normal [facility] Comment on above: Performed By: #### L [id number] #### LAB [address] [address] Jack Mendoza M.D. [id number] Erythrocyte distribution width (RBC) [Ratio] 15.7 % High 11.6-14.8 [facility] Comment on above: Performed By: #### L [id number] #### LAB [address] [address] Jack Mendoza M.D. [id number] Hematocrit (Bld) [Volume fraction] 36.0 % Low 41.0-53.0 [facility] Comment on above: Performed By: #### L [id number] #### LAB [address] [address] Jack Mendoza M.D. [id number] Hemoglobin (Bld) [Mass/Vol] 10.9 g/dL Low 13.5-17.5 [facility] Comment on above: Performed By: #### L [id number] #### LAB [address] [address] Jack Mendoza M.D. [id number] IG ABSOLUTE 0.01 K/mcL Normal 0.00-0.30 [facility] Comment on above: Performed By: #### L [id number] #### LAB [address] [place] [address] Jack Mnedoza M.D. [id number] IG PERCENT 0.30 % Normal [facility] Comment on above: Result Comment: The IG parameter is the percentage of metamyelocytes, myelocytes and promyelocytes. An immature granulocyte count (IG) of 1% or more suggests the possibility of infection, an IG count of 3% is very likely related to an infection. Performed By: #### L [id number] #### LAB [address] [address] Jack Mendoza M.D. [id number] Lymphocytes (Bld) [#/Vol] 0.63 10*3/uL Low 0.90-4.00 [facility] Comment on above: Performed By: #### L [id number] #### LAB [address] [address] Jack Mendoza M.D. [id number] Lymphocytes/100 WBC (Bld) 21.3 % Normal [facility] Comment on above: Performed By: #### L [id number] #### LAB [address] [address] Jack Mendoza M.D. [id number] MCH (RBC) [Entitic mass] 21.0 pg Low 26.0-34.0 [facility] Comment on above: Performed By: #### L [id number] #### LAB [address] [address] Jack Mendoza M.D. [id number] MCV (RBC) [Entitic vol] 69.4 fL Low 80.0-100.0 [facility] Comment on above: Performed By: #### L [id number] #### LAB [address] [place] [address] Jack Mendoza M.D. [id number] MEAN CORPUSCULAR HEMOGLOBIN CONC 30.3 g/dL Low 31.0-37.0 [facility] Comment on above: Performed By: #### L [id number] ####[facility] LAB [address] [address] Jack Mendoza M.D. [id number] Monocytes (Bld) [#/Vol] 0.26 10*3/uL Low 0.30-0.90 [facility] Comment on above: Performed By: #### L [id number] #### LAB [address] [place] [address] Jack Mendoza M.D. [id number] Monocytes/100 WBC (Bld) 8.8 % Normal [facility] Comment on above: Performed By: #### L [id number] #### LAB [address] [address] Jack Mendoza M.D. [id number] NEUTROPHILS ABSOLUTE COUNT 1.95 K/mcL Normal 1.70-7.00 [facility] Comment on above: Performed By: #### L [id number] ####[facility] LAB [address] [address] Jack Mendoza M.D. [id number] Neutrophils/100 WBC (Bld) 65.9 % Normal [facility] Comment on above: Performed By: #### L [id number] ####[facility] LAB [address] [address] Jack Mendoza M.D. [id number] Platelets (Bld) [#/Vol] 117 10*3/uL Low 150-400 [facility] Comment on above: Performed By: #### L [id number] ####[facility] LAB [address] [address] Jack Mendoza M.D. [id number] RBC (Bld) [#/Vol] 5.19 10*6/uL Normal 4.50-5.90 [facility] Comment on above: Performed By: #### L [id number] ####[facility] LAB [address] [address] Jack Mendoza M.D. [id number] WBC (Bld) [#/Vol] 2.96 10*3/uL Low 4.50-11.00 [facility] Comment on above: Performed By: #### L [id number] #### LAB [address] [address] Jack Mendoza M.D. [id number] CONSULTon 05-12-2025 CONSULT Normal [facility] DRUGS OF ABUSE SCREEN, URINE on 05-12-2025 AMPHETAMINE SCREEN, URINE Not detected Normal None Detected [facility] Comment on above: Order Comment: Scree n results should be used for treatment purposes only.Specimen will be kept for 2 weeks, if the sample is adequate. Confirmation testing can be initiated by calling the lab within 2 weeks. Result Comment: Urin e Amphetamine Cutoff: < 1000 ng/mL = None Detected Performed By: #### 4 6965 ####[facility] LAB [address] [address] Jack Mendoza M.D. [id number] BARBITURATE SCREEN URINE Not detected Normal None Detected [facility] Comment on above: Order Comment: Scree n results should be used for treatment purposes only.Specimen will be kept for 2 weeks, if the sample is adequate. Confirmation testing can be initiated by calling the lab within 2 weeks. Result Comment: Urin e Barbiturates Cutoff: < 200 ng/mL = None Detected Performed By: #### 4 6965 ####[facility] LAB [address] [address] Jack Mendoza M.D. [id number] BENZODIAZEPINE SCREEN, URINE Not detected Normal None Detected [facility] Comment on above: Order Comment: Scree n results should be used for treatment purposes only.Specimen will be kept for 2 weeks, if the sample is adequate. Confirmation testing can be initiated by calling the lab within 2 weeks. Result Comment: Urin e Benzodiazepine Cutoff: < 200 ng/mL = None Detected Performed By: #### 4 6965 ####[facility] LAB [address] [address] Jack Mendoza M.D. [id number] BUPRENORPHINE, URINE Positive Abnormal None Detected [facility] Comment on above: Order Comment: Scree n results should be used for treatment purposes only.Specimen will be kept for 2 weeks, if the sample is adequate. Confirmation testing can be initiated by calling the lab within 2 weeks. Result Comment: Urin e Buprenorphine Cutoff: < 5 ng/mL = None Detected Performed By: #### 4 6965 ####[facility] LAB [address] [address] Jack Mendoza M.D. [id number] CANNABINOID SCREEN URINE Not detected Normal None Detected [facility] Comment on above: Order Comment: Scree n results should be used for treatment purposes only.Specimen will be kept for 2 weeks, if the sample is adequate. Confirmation testing can be initiated by calling the lab within 2 weeks. Result Comment: Urin e Cannabinoids Cutoff: < 50 ng/mL = None Detected Performed By: #### 4 [id number] ####[facility] LAB [address] [address] Jack Mendoza M.D. [id number] COCAINE, SCREEN URINE Positive Abnormal None Detected [facility] Comment on above: Order Comment: Scree n results should be used for treatment purposes only.Specimen will be kept for 2 weeks, if the sample is adequate. Confirmation testing can be initiated by calling the lab within 2 weeks. Result Comment: Urin e Cocaine Cutoff: < 300 ng/mL = None Detected Performed By: #### 4 [id number] ####[facility] LAB [address] [address] Jack Mendoza M.D. [id number] FENTANYL, URINE Not detected Normal None Detected [facility] Comment on above: Order Comment: Scree n results should be used for treatment purposes only.Specimen will be kept for 2 weeks, if the sample is adequate. Confirmation testing can be initiated by calling the lab within 2 weeks. Result Comment: Urin e Fentanyl Cutoff: < 1 ng/mL = None Detected Performed By: #### 4 [id number] ####[facility] LAB [address] [address] Jack Mendoza M.D. [id number] METHADONE SCREEN, URINE Not detected Normal None Detected [facility] Comment on above: Order Comment: Scree n results should be used for treatment purposes only.Specimen will be kept for 2 weeks, if the sample is adequate. Confirmation testing can be initiated by calling the lab within 2 weeks. Result Comment: Urin e Methadone Cutoff: < 300 ng/mL = None Detected Performed By: #### 4 [id number] ####[facility] LAB [address] [address] Jack Mendoza M.D. [id number] OPIATE SCREEN URINE Not detected Normal None Detected [facility] Comment on above: Order Comment: Scree n results should be used for treatment purposes only.Specimen will be kept for 2 weeks, if the sample is adequate. Confirmation testing can be initiated by calling the lab within 2 weeks. Result Comment: Urin e Opiates Cutoff: < 300 ng/mL = None Detected Performed By: #### 4 6965 ####[facility] LAB [address] [place], [place] [address] Jack Mendoza M.D. [id number] OXYCODONE SCREEN, URINE Positive Abnormal None Detected [facility] Comment on above: Order Comment: Scree n results should be used for treatment purposes only.Specimen will be kept for 2 weeks, if the sample is adequate. Confirmation testing can be initiated by calling the lab within 2 weeks. Result Comment: Urin e Oxycodone Cutoff: < 100 ng/mL = None Detected Performed By: #### 4 [id number] ####[facility] LAB [address] [place], [place] [address] Jack Mendoza M.D. [id number] Drugs of Abuse Screen, Urine Ordered By: Neeru Calvert on 05-12-2025 Amphetamines Ql (U) Not detected None Detected [facility] Comment on above: Urine Amphetamine Cu toff: < 1000 ng/mL = None Detected Barbiturates Screen Ql (U) Not detected None Detected [facility] Comment on above: Urine Barbiturates C utoff: < 200 ng/mL = None Detected Benzodiazepines Ql (U) Not detected None Detected [facility] Comment on above: Urine Benzodiazepine Cutoff: < 200 ng/mL = None Detected Buprenorphine Ql (U) Positive Abnormal None Detected [facility] Comment on above: Urine Buprenorphine Cutoff: < 5 ng/mL = None Detected Cannabinoids Screen Ql (U) Not detected None Detected [facility] Comment on above: Urine Cannabinoids C utoff: < 50 ng/mL = None Detected Cocaine Ql (U) Positive Abnormal None Detected [facility] Comment on above: Urine Cocaine Cutoff : < 300 ng/mL = None Detected fentaNYL+Norfentanyl Screen Ql (U) Not detected None Detected [facility] Comment on above: Urine Fentanyl Cutof f: < 1 ng/mL = None Detected Interpretation and review of laboratory results Abnormal [facility] Methadone Screen Ql (U) Not detected None Detected [facility] Comment on above: Urine Methadone Cuto ff: < 300 ng/mL = None Detected Opiates Screen Ql (U) Not detected None Detected [facility] Comment on above: Urine Opiates Cutoff : < 300 ng/mL = None Detected oxyCODONE Ql (U) Positive Abnormal None Detected [facility] Comment on above: Urine Oxycodone Cuto ff: < 100 ng/mL = None Detected Screen results shoul d be used for treatment purposes only. Specimen will be kept for 2 weeks, if the sample is adequate. Confirmation testing can be initiated by calling the lab within 2 weeks. [facility] ED Prov Noteon 05-12-2025 ED Prov Note Normal [facility] Glucose (Bld) [Mass/Vol]on 0 05-12-2025 Glucose [Mass/Vol] 179 mg/dL High 65 - 99 mg/dL [facility] Interpretation and review of laboratory results Abnormal [facility] Glucose [Mass/Vol] 120 mg/dL High 65 - 99 mg/dL [facility] Interpretation and review of laboratory results Abnormal [facility] Glucose [Mass/Vol] 111 mg/dL High 65 - 99 mg/dL [facility] Interpretation and review of laboratory results Abnormal [facility] Glucose [Mass/Vol] 99 mg/dL 65 - 99 mg/dL [facility] Interpretation and review of laboratory results Normal [facility] H AND Mike 05-12-2025 H AND P Normal [facility] MAGNESIUM LEVELon 05-12-2025 Magnesium [Mass/Vol] 1.8 mg/dL Normal 1.6-2.4 [facility] Comment on above: Performed By: #### 4 6109 #### LAB [address] [place] [address] Jack Mendoza M.D. [id number] MRSA DNA AMPLIFIED PROBEon 0 05-12-2025 MRSA DNA AMPLIFIED PROBE Not detected Normal Not Detected, MRSA NEGATIVE [facility] Comment on above: Performed By: #### 4 8061 ####[facility] [address] [place], [place] [address] Venancio Richardson M.D. [id number] Magnesium Levelon 05-12-2025 Magnesium [Mass/Vol] 1.8 mg/dL 1.6 - 2 .4 mg/dL [facility] NT PRO BNPon 05-12-2025 Natriuretic peptide B (Bld) [Mass/Vol] 91 pg/mL Normal 0-300 [facility] Comment on above: Order Comment: Pride Study Cut-offsRule In:< /= 50 Years >450 pg/mL51 Years - 75 Years >900 pg/mL76 Years - 99 Years >1800 pg/mLRule Out:All patients <300 pg/mL Performed By: #### 4 7395 #### LAB [address] [facility] [place] [place] [address] Jack Mendoza M.D. [id number] NT Pro BNPon 05-12-2025 Natriuretic peptide.B prohormone N-Terminal [Mass/Vol] 91 pg/mL 0 - 300 pg/mL [facility] Natriuretic peptide.B prohor randi N-Terminal [Mass/Vol]on 05-12-2025 Pride Study Cut-offs Rule In: < /= 50 Years >450 pg/mL 51 Years - 75 Years >900 pg/mL 76 Years - 99 Years >1800 pg/mL Rule Out: All patients <300 pg/mL [facility] No Panel Informationon 05-12 Interpretation and review of laboratory results Normal [facility] POC GLUCOSE - [facility] 025 Glucose [Mass/Vol] 179 mg/dL High 65-99 [facility] Glucose [Mass/Vol] 120 mg/dL High 65-99 [facility] Glucose [Mass/Vol] 111 mg/dL High 65-99 [facility] Glucose [Mass/Vol] 99 mg/dL Normal 65-99 [facility] WOUND AEROBIC AND ANAEROBIC CULTUREon 05-12-2025 WOUND AEROBIC AND ANAEROBIC CULTURE CULTURE No Anaerobic Growth after 5 days CORYNEBACTERIUM SPECIES Few Growth (4-10 colonies per plate) Corynebacterium species, not JK GRAM STAIN RESULT Many WBC Many RBC Few Gram Negative Bacilli Few Gram Positive Bacilli Abnormal [facility] Comment on above: Performed By: #### 4 4287 ####[facility] [address] [place], [place] [id number] Venancio Richardson M.D. [id number] BLOOD CULTURE AEROBIC/ANAERO BICon 05-11-2025 BLOOD CULTURE AEROBIC/ANAEROBIC BLOOD CULTURE No Growth after 5 days Normal [facility] Comment on above: Performed By: #### 4 4014 ####[facility] [address] [place] [address] Venancio Richardson M.D. [id number] CBC Auto Differentialon 04-23 Erythrocyte distribution width (RBC) [Entitic vol] 17.2 % High 11.6 - 14.8 % [facility] Hematocrit (Bld) [Volume fraction] 38.9 % Low 41.0 - 53.0 % [facility] Hemoglobin (Bld) [Mass/Vol] 11.5 g/dL Low 13.5 - 17.5 g/dL [facility] MCH (RBC) [Entitic mass] 21.1 pg Low 26.0 - 34.0 pg [facility] MCHC (RBC) [Mass/Vol] 29.6 g/dL Low 31.0 - 37.0 g/dL [facility] MCV (RBC) [Entitic vol] 71.2 fL Low 80.0 - 100.0 fL [facility] Nucleated RBC (Bld) [#/Vol] 0 10*3/uL [facility] Nucleated RBC/100 WBC (Bld) [Ratio] 0 % [facility] Platelets (Bld) [#/Vol] 124 10*3/uL Low [facility] RBC (Bld) [#/Vol] 5.46 10*6/uL [facility] WBC (Bld) [#/Vol] 4.46 10*3/uL Low [facility] CBC WITH AUTO DIFFERENTIALon 05-11-2025 AUTO NRBC 0.0 % Normal [facility] Comment on above: Performed By: #### L [id number] #### LAB [address], [place] [address] Jack Mendoza M.D. [id number] AUTO NRBC ABS COUNT 0.00 K/mcL Normal 0.00-0.00 [facility] Comment on above: Performed By: #### L [id number] ####[facility] LAB [address], [place] [address] Jack Mendoza M.D. [id number] Erythrocyte distribution width (RBC) [Ratio] 17.2 % High 11.6-14.8 [facility] Comment on above: Performed By: #### L [id number] #### LAB [address], [place] [address] Jack Mendoza M.D. [id number] Hematocrit (Bld) [Volume fraction] 38.9 % Low 41.0-53.0 [facility] Comment on above: Performed By: #### L [id number] #### LAB [address] [address] Jack Mendoza M.D. [id number] Hemoglobin (Bld) [Mass/Vol] 11.5 g/dL Low 13.5-17.5 [facility] Comment on above: Performed By: #### L [id number] #### LAB [address] [address] Jack Mendoza M.D. [id number] MCH (RBC) [Entitic mass] 21.1 pg Low 26.0-34.0 [facility] Comment on above: Performed By: #### L [id number] #### LAB [address] [address] Jack Mendoza M.D. [id number] MCV (RBC) [Entitic vol] 71.2 fL Low 80.0-100.0 [facility] Comment on above: Performed By: #### L [id number] #### LAB [address] [address] Jack Mendoza M.D. [id number] MEAN CORPUSCULAR HEMOGLOBIN CONC 29.6 g/dL Low 31.0-37.0 [facility] Comment on above: Performed By: #### L [id number] #### LAB [address] [address] Jack Mendoza M.D. [id number] Platelets (Bld) [#/Vol] 124 10*3/uL Low 150-400 [facility] Comment on above: Performed By: #### L [id number] ####[facility] LAB [address] [address] Jack Mendoza M.D. [id number] RBC (Bld) [#/Vol] 5.46 10*6/uL Normal 4.50-5.90 [facility] Comment on above: Performed By: #### L [id number] ####[facility] LAB [address] [place] [address] Jack Mendoza M.D. [id number] WBC (Bld) [#/Vol] 4.46 10*3/uL Low 4.50-11.00 [facility] Comment on above: Performed By: #### L [id number] #### LAB [address] [id number] Jack Mendoza M.D. [id number] CBC and Diff Morphologyon Acanthocytes LM Ql (Bld) Few [facility] Ovalocytes LM Ql (Bld) Moderate [facility] Platelets LM Ql (Bld) Decreased Abnormal Normal [facility] Polychromasia LM Ql (Bld) Few [facility] RBC morphology finding Nom (Bld) See Comment [facility] Comment on above: RBC Indices confirme d with manual peripheral smear review. Target cells LM Ql (Bld) Few [facility] COMPREHENSIVE METABOLIC PANE Ras 05-11-2025 Albumin [Mass/Vol] 3.4 g/dL Normal 3.2-5.2 [facility] Comment on above: Order Comment: [facility] has implemented the eGFR calculation approach that does not have a coefficient for race that conforms to the NKF-ASN Task Force Recommendations. Performed By: #### 4 6126 #### LAB [address] [address] Jack Mendoza M.D. [id number] ALP [Catalytic activity/Vol] 83 U/L Normal 40-150 [facility] Comment on above: Order Comment: [facility] has implemented the eGFR calculation approach that does not have a coefficient for race that conforms to the NKF-ASN Task Force Recommendations. Performed By: #### 4 6126 #### LAB [address] [address] Jack Mendoza M.D. [id number] ALT [Catalytic activity/Vol] 16 U/L Normal 0-50 U/L [facility] Comment on above: Order Comment: [facility] has implemented the eGFR calculation approach that does not have a coefficient for race that conforms to the NKF-ASN Task Force Recommendations. Performed By: #### 4 6126 #### LAB [address] [address] Jack Mendoza M.D. [id number] Anion gap [Moles/Vol] 14 mmol/L Normal 10-20 [facility] Comment on above: Order Comment: [facility] has implemented the eGFR calculation approach that does not have a coefficient for race that conforms to the NKF-ASN Task Force Recommendations. Performed By: #### 4 6126 #### LAB [address] [address] Jack Mendoza M.D. [id number] AST [Catalytic activity/Vol] 31 U/L Normal 0-50 U/L [facility] Comment on above: Order Comment: [facility] has implemented the eGFR calculation approach that does not have a coefficient for race that conforms to the NKF-ASN Task Force Recommendations. Performed By: #### 4 6126 #### LAB [address] [address] Jack Mendoza M.D. [id number] Bilirubin [Mass/Vol] 0.8 mg/dL Normal 0.0-1.3 [facility] Comment on above: Order Comment: [facility] has implemented the eGFR calculation approach that does not have a coefficient for race that conforms to the NKF-ASN Task Force Recommendations. Performed By: #### 4 6126 #### LAB [address] [address] Jack Mendoza M.D. [id number] Calcium [Mass/Vol] 8.8 mg/dL Normal 8.4-10.2 [facility] Comment on above: Order Comment: [facility] has implemented the eGFR calculation approach that does not have a coefficient for race that conforms to the NKF-ASN Task Force Recommendations. Performed By: #### 4 6126 #### LAB [address] [address] Jack Mendoza M.D. [id number] Chloride [Moles/Vol] 98 mmol/L Normal 98-108 [facility] Comment on above: Order Comment: [facility] has implemented the eGFR calculation approach that does not have a coefficient for race that conforms to the NKF-ASN Task Force Recommendations. Performed By: #### 4 6126 #### LAB [address] [address] Jack Mendoza M.D. [id number] Creatinine [Mass/Vol] 0.66 mg/dL Normal 0.50-1.30 [facility] Comment on above: Order Comment: [facility] has implemented the eGFR calculation approach that does not have a coefficient for race that conforms to the NKF-ASN Task Force Recommendations. Performed By: #### 4 6126 #### LAB [address] [address] Jack Mendoza M.D. [id number] EGFR 109 mL/min/1.73 m2 Normal >=60 [facility] Comment on above: Order Comment: [facility] has implemented the eGFR calculation approach that does not have a coefficient for race that conforms to the NKF-ASN Task Force Recommendations. Result Comment: Ashley mated GFR was calculated using the 2020 CKD-EPI creatinine equation. Performed By: #### 4 6126 #### LAB [address] [address] Jack Mendoza M.D. [id number] Glucose [Mass/Vol] 96 mg/dL Normal 65-99 [facility] Comment on above: Order Comment: [facility] has implemented the eGFR calculation approach that does not have a coefficient for race that conforms to the NKF-ASN Task Force Recommendations. Performed By: #### 4 6126 #### LAB [address] [address] Jack Mendoza M.D. [id number] HCO3 (Bld) [Moles/Vol] 26 mmol/L Normal 21-32 [facility] Comment on above: Order Comment: [facility] has implemented the eGFR calculation approach that does not have a coefficient for race that conforms to the NKF-ASN Task Force Recommendations. Performed By: #### 4 6126 #### LAB [address] [address] Jack Mendoza M.D. [id number] Potassium [Moles/Vol] 3.9 mmol/L Normal 3.5-5.1 [facility] Comment on above: Order Comment: [facility] has implemented the eGFR calculation approach that does not have a coefficient for race that conforms to the NKF-ASN Task Force Recommendations. Performed By: #### 4 6126 #### LAB [address] [place], [place] [address] Jack Mendoza M.D. [id number] Protein [Mass/Vol] 7.8 g/dL Normal 6.0-8.0 [facility] Comment on above: Order Comment: [facility] has implemented the eGFR calculation approach that does not have a coefficient for race that conforms to the NKF-ASN Task Force Recommendations. Performed By: #### 4 6126 #### LAB [address] [id number] Jack Mendoza M.D. [id number] Sodium [Moles/Vol] 134 mmol/L Low 135-145 [facility] Comment on above: Order Comment: [facility] has implemented the eGFR calculation approach that does not have a coefficient for race that conforms to the NKF-ASN Task Force Recommendations. Performed By: #### 4 6126 #### LAB [address] [address] Jack Mendoza M.D. [id number] Urea nitrogen [Mass/Vol] 16 mg/dL Normal 8-25 [facility] Comment on above: Order Comment: [facility] has implemented the eGFR calculation approach that does not have a coefficient for race that conforms to the NKF-ASN Task Force Recommendations. Performed By: #### 4 6126 #### LAB [address] [place], [place] [address] Jack Mendoza M.D. [id number] Urea nitrogen/Creatinine [Mass ratio] 24.2 mg/mg High 10.0-20.0 [facility] Comment on above: Order Comment: [facility] has implemented the eGFR calculation approach that does not have a coefficient for race that conforms to the NKF-ASN Task Force Recommendations. Performed By: #### 4 6126 ####[facility] [address] [place], [place] [address] Jack Mendoza M.D. [id number] Comprehensive metabolic 2000 panelon 05-11-2025 Albumin [Mass/Vol] 3.4 g/dL 3.2 - 5.2 g/dL [facility] ALP [Catalytic activity/Vol] 83 U/L 40 - 150 U/L [facility] ALT [Catalytic activity/Vol] 16 U/L 0 - 50 U/L [facility] Anion gap [Moles/Vol] 14 mmol/L 10 - 20 mmol/L [facility] AST [Catalytic activity/Vol] 31 U/L 0 - 50 U/L [facility] Bilirubin [Mass/Vol] 0.8 mg/dL 0.0 - 1 .3 mg/dL [facility] Calcium [Mass/Vol] 8.8 mg/dL 8.4 - 10. 2 mg/dL [facility] Chloride [Moles/Vol] 98 mmol/L 98 - 10 8 mmol/L [facility] Creatinine [Mass/Vol] 0.66 mg/dL 0.50 - 1.30 mg/dL [facility] GFR/1.73 sq M.predicted CKD-EPI (S/P/Bld) [Vol rate/Area] 109 - PINF [facility] Comment on above: Estimated GFR was ca lculated using the 2020 CKD-EPI creatinine equation. Glucose [Mass/Vol] 96 mg/dL 65 - 99 mg/dL [facility] HCO3 [Moles/Vol] 26 mmol/L 21 - 32 mmol/L [facility] Interpretation and review of laboratory results Abnormal [facility] Potassium [Moles/Vol] 3.9 mmol/L 3.5 - 5.1 mmol/L [facility] Protein [Mass/Vol] 7.8 g/dL 6.0 - 8.0 g/dL [facility] Sodium [Moles/Vol] 134 mmol/L Low 135 - 145 mmol/L [facility] Urea nitrogen [Mass/Vol] 16 mg/dL 8 - 25 mg/dL [facility] Urea nitrogen/Creatinine [Mass ratio] 24.2 mg/mg High 10.0 - 20.0 [facility] has implemented the eGFR calculation approach that does not have a coefficient for race that conforms to the NKF-ASN Task Force Recommendations. [facility] LACTIC ACID, PLASMAon 2024 LACTIC ACID, PLASMA 1.9 mmol/L Normal 0.6-2.0 [facility] Comment on above: Performed By: #### 4 6053 #### LAB [address] [address] Jack Mendoza M.D. [id number] Lactate [Moles/Vol]on 2024 Interpretation and review of laboratory results Normal [facility] Lactic Acidon 05-11-2025 Lactate [Moles/Vol] 1.9 mmol/L 0.6 - 2. 0 mmol/L [facility] MANUAL DIFFERENTIALon 2024 BASOPHILS - ABS (DIFF) 0.00 K/mcL Normal 0.00-0.30 [facility] Comment on above: Performed By: #### 4 [id number] #### LAB [address] [address] Jack Mendoza M.D. [id number] BASOPHILS - REL (DIFF) 0.0 % [facility] Comment on above: Performed By: #### 4 [id number] #### LAB [address] [address] Jack Mendoza M.D. [id number] EOSINOPHILS - ABS (DIFF) 0.13 K/mcL Normal 0.00-0.50 [facility] Comment on above: Performed By: #### 4 [id number] #### LAB [address] [address] Jack Mendoza M.D. [id number] EOSINOPHILS - REL (DIFF) 3.0 % Normal [facility] Comment on above: Performed By: #### 4 5428 #### LAB [address] [address] Jack Mendoza M.D. [id number] LYMPHOCYTE ATYPICAL - REL (DIFF) 1.0 % [facility] Comment on above: Performed By: #### 4 5450 #### LAB [address] [address] Jack Mendoza M.D. [id number] LYMPHOCYTES - ABS (DIFF) 0.49 K/mcL Low 0.90-4.00 [facility] Comment on above: Performed By: #### 4 [id number] #### LAB [address] [address] Jack Mendoza M.D. [id number] LYMPHOCYTES - REL (DIFF) 10.0 % Normal [facility] Comment on above: Performed By: #### 4 [id number] #### LAB [address] [address] Jack Mendoza M.D. [id number] MONOCYTES - ABS (DIFF) 0.13 K/mcL Low 0.30-0.90 [facility] Comment on above: Performed By: #### 4 [id number] #### LAB [address] [address] Jack Mendoza M.D. [id number] MONOCYTES - REL (DIFF) 3.0 % Normal [facility] Comment on above: Performed By: #### 4 [id number] #### LAB [address] [address] Jack Mendoza M.D. [id number] NEUTROPHILS - ABS (DIFF) 3.70 K/mcL Normal 1.70-7.00 [facility] Comment on above: Performed By: #### 4 [id number] #### LAB [address] [address] Jack Mendoza M.D. [id number] NEUTROPHILS - REL (DIFF) 83.0 % Normal [facility] Comment on above: Performed By: #### 4 [id number] #### LAB [address] [address] Jack Mendoza M.D. [id number] MORPHOLOGYon 05-11-2025 ACANTHOCYTES Few Normal [facility] Comment on above: Performed By: #### L [id number] ####[facility] [address] [address] Jack Mendoza M.D. [id number] OVAL SCAN Moderate Normal [facility] Comment on above: Performed By: #### L [id number] #### LAB [address] [address] Jack Mendoza M.D. [id number] PLATELET ESTIMATE Decreased Abnormal Normal [facility] Comment on above: Performed By: #### L [id number] ####[facility] [address], [place] [address] Jack Mendoza M.D. [id number] POLY SCAN Few Normal [facility] Comment on above: Performed By: #### L [id number] ####[facility] [address] [id number] Jack Mendoza M.D. [id number] RBC MORPH SCAN See Comment Normal [facility] Comment on above: Result Comment: RBC Indices confirmed with manual peripheral smear review. Performed By: #### L [id number] ####[facility] [address] [address] Jack Mendoza M.D. [id number] TARGET CELL SCAN Few Normal [facility] Comment on above: Performed By: #### L [id number] ####[facility] [address] [address] Jack Mendoza M.D. [id number] Manual Differential panel (B ld)on 05-11-2025 Basophils (Bld) [#/Vol] 0 10*3/uL [facility] Basophils/100 WBC (Bld) 0 % [facility] Eosinophils (Bld) [#/Vol] 0.13 10*3/uL [facility] Eosinophils/100 WBC (Bld) 3 % [facility] Lymphocytes (Bld) [#/Vol] 0.49 10*3/uL Low [facility] Lymphocytes/100 WBC (Bld) 10 % [facility] Monocytes (Bld) [#/Vol] 0.13 10*3/uL Low [facility] Monocytes/100 WBC (Bld) 3 % [facility] Neutrophils (Bld) [#/Vol] 3.7 10*3/uL [facility] Neutrophils/100 WBC (Bld) 83 % [facility] Variant lymphocytes/100 WBC (Bld) 1 % [facility] No Panel Informationon 05-11 Interpretation and review of laboratory results Abnormal [facility] XR KNEE RIGHT 2 VIEWS (STAND NO)on 05-11-2025 XR KNEE RIGHT 2 VIEWS (STANDARD) Normal [facility] Comment on above: Order Comment: Injur y/Trauma or Illness?:Illness/OtherHow long have you had these symptoms (acute/chronic)?:AcuteReason for exam?:right knee pain and swellingHistory of cancer?:uSurgeries, chemotherapy, or radiation?:uType of Exam?:InitialAdditional signs and symptoms?:. XR Knee - right 2 Viewson No acute osseous abnormality. Workstation ID: [id number] [facility] EXAMINATION: XR KNEE RIGHT 2 VIEWS (STANDARD) 05/11/2025 6:41 pm HISTORY: ORDERING SYSTEM PROVIDED HISTORY: knee pain, TECHNOLOGIST PROVIDED HISTORY: Illness/Other Reason for exam: right knee pain and swelling Cancer History: u Surgery, RadiationHistory: u Encounter Type: Initial Additional signs and symptoms: . ORDERING SYSTEM PROVIDED DIAGNOSIS CODES: COMPARISON: 04/02/2025 FINDINGS: 2 views of the right knee. Postsurgical changes of total knee arthroplasty. The bones are intact. The alignment is anatomic. The joints are maintained. Small suprapatellar joint effusion. [facility] Briana Ramirez MD - 05/11/2025 EXAMINATION: XR KNEE RIGHT 2 VIEWS (STANDARD) 05/11/2025 6:41 pm HISTORY: ORDERING SYSTEM PROVIDED HISTORY: knee pain, TECHNOLOGIST PROVIDED HISTORY: Illness/Other Reason for exam: right knee pain and swelling Cancer History: u Surgery, RadiationHistory: u Encounter Type: Initial Additional signs and symptoms: . ORDERING SYSTEM PROVIDED DIAGNOSIS CODES: COMPARISON: 04/02/2025 FINDINGS: 2 views of the right knee. Postsurgical changes of total knee arthroplasty. The bones are intact. The alignment is anatomic. The joints are maintained. Small suprapatellar joint effusion. IMPRESSION: No acute osseous abnormality. Workstation ID: [id number] [facility] Radiology Study observation (narrative) [facility] XR Knee - right 2 ViewsOrder ed By: Briana Ramirez on 05-11-2025 [facility] Work Phone: BODY FLUID AEROBIC AND ANAER OBIC CULTUREon 05-09-2025 BODY FLUID AEROBIC AND ANAEROBIC CULTURE CULTURE No Growth after 5 days GRAM STAIN RESULT Moderate WBC Many RBC No Organisms Seen Normal [facility] Comment on above: Order Comment: Yue ered to run at [employer] instead of [employer] due to source Performed By: #### 4 [id number] #### [facility] [address], [place] [address] Venancio Richardson M.D. [id number] BODY FLUID AEROBIC AND ANAEROBIC CULTURE CULTURE No Growth after 5 days GRAM STAIN RESULT Few WBC Many RBC No Organisms Seen Normal [facility] Comment on above: Performed By: #### 4 4197 #### [facility] [place], [place] [address] Venancio Richardson M.D. [id number] BASIC METABOLIC PANELon 08- Anion gap [Moles/Vol] 11 mmol/L Normal 10-20 [facility] Comment on above: Order Comment: [facility] has implemented the eGFR calculation approach that does not have a coefficient for race that conforms to the NKF-ASN Task Force Recommendations. Performed By: #### 4 6124 #### LAB [address] [address] Jack Mendoza M.D. [id number] Calcium [Mass/Vol] 8.2 mg/dL Low 8.4-10.2 [facility] Comment on above: Order Comment: [facility] has implemented the eGFR calculation approach that does not have a coefficient for race that conforms to the NKF-ASN Task Force Recommendations. Performed By: #### 4 6124 #### LAB [address], [place] [address] Jack Mendoza M.D. [id number] Chloride [Moles/Vol] 100 mmol/L Normal 98-108 [facility] Comment on above: Order Comment: [facility] has implemented the eGFR calculation approach that does not have a coefficient for race that conforms to the NKF-ASN Task Force Recommendations. Performed By: #### 4 6124 #### LAB [address] [address] Jack Mendoza M.D. [id number] Creatinine [Mass/Vol] 0.51 mg/dL Normal 0.50-1.30 [facility] Comment on above: Order Comment: [facility] has implemented the eGFR calculation approach that does not have a coefficient for race that conforms to the NKF-ASN Task Force Recommendations. Performed By: #### 4 6124 #### LAB [address] [address] Jack Mendoza M.D. [id number] EGFR 118 mL/min/1.73 m2 Normal >=60 [facility] Comment on above: Order Comment: [facility] has implemented the eGFR calculation approach that does not have a coefficient for race that conforms to the NKF-ASN Task Force Recommendations. Result Comment: Ashley mated GFR was calculated using the 2020 CKD-EPI creatinine equation. Performed By: #### 4 6124 #### LAB [address] [address] Jack Mendoza M.D. [id number] Glucose [Mass/Vol] 115 mg/dL High 65-99 [facility] Comment on above: Order Comment: [facility] has implemented the eGFR calculation approach that does not have a coefficient for race that conforms to the NKF-ASN Task Force Recommendations. Performed By: #### 4 6124 #### LAB [address] [address] Jack Mendoza M.D. [id number] HCO3 (Bld) [Moles/Vol] 29 mmol/L Normal 21-32 [facility] Comment on above: Order Comment: [facility] has implemented the eGFR calculation approach that does not have a coefficient for race that conforms to the NKF-ASN Task Force Recommendations. Performed By: #### 4 6124 #### LAB [address] [address] Jack Mendoza M.D. [id number] Potassium [Moles/Vol] 4.1 mmol/L Normal 3.5-5.1 [facility] Comment on above: Order Comment: [facility] has implemented the eGFR calculation approach that does not have a coefficient for race that conforms to the NKF-ASN Task Force Recommendations. Performed By: #### 4 6124 #### LAB [address] [address] Jack Mendoza M.D. [id number] Sodium [Moles/Vol] 136 mmol/L Normal 135-145 [facility] Comment on above: Order Comment: [facility] has implemented the eGFR calculation approach that does not have a coefficient for race that conforms to the NKF-ASN Task Force Recommendations. Performed By: #### 4 6124 #### LAB [address], [place] [address] Jack Mendoza M.D. [id number] Urea nitrogen [Mass/Vol] 12 mg/dL Normal 8-25 [facility] Comment on above: Order Comment: [facility] has implemented the eGFR calculation approach that does not have a coefficient for race that conforms to the NKF-ASN Task Force Recommendations. Performed By: #### 4 6124 #### LAB [address], [place] [address] Jack Mendoza M.D. [id number] Urea nitrogen/Creatinine [Mass ratio] 23.5 mg/mg High 10.0-20.0 [facility] Comment on above: Order Comment: [facility] has implemented the eGFR calculation approach that does not have a coefficient for race that conforms to the NKF-ASN Task Force Recommendations. Performed By: #### 4 6124 #### LAB [address], [place] [address] Jack Mendoza M.D. [id number] Basic metabolic 2000 panelon 04-05-2025 Anion gap [Moles/Vol] 11 mmol/L 10 - 20 mmol/L [facility] Calcium [Mass/Vol] 8.2 mg/dL Low 8.4 - 10. 2 mg/dL [facility] Chloride [Moles/Vol] 100 mmol/L 98 - 10 8 mmol/L [facility] Creatinine [Mass/Vol] 0.51 mg/dL 0.50 - 1.30 mg/dL [facility] GFR/1.73 sq M.predicted CKD-EPI (S/P/Bld) [Vol rate/Area] 118 - PINF [facility] Comment on above: Estimated GFR was ca lculated using the 2020 CKD-EPI creatinine equation. Glucose [Mass/Vol] 115 mg/dL High 65 - 99 mg/dL [facility] HCO3 [Moles/Vol] 29 mmol/L 21 - 32 mmol/L [facility] Interpretation and review of laboratory results Abnormal [facility] Potassium [Moles/Vol] 4.1 mmol/L 3.5 - 5.1 mmol/L [facility] Sodium [Moles/Vol] 136 mmol/L 135 - 145 mmol/L [facility] Urea nitrogen [Mass/Vol] 12 mg/dL 8 - 25 mg/dL [facility] Urea nitrogen/Creatinine [Mass ratio] 23.5 mg/mg High 10.0 - 20.0 [facility] has implemented the eGFR calculation approach that does not have a coefficient for race that conforms to the NKF-ASN Task Force Recommendations. [facility] Anion gap [Moles/Vol] 15 mmol/L 10 - 20 mmol/L [facility] Calcium [Mass/Vol] 8.7 mg/dL 8.4 - 10. 2 mg/dL [facility] Chloride [Moles/Vol] 96 mmol/L Low 98 - 10 8 mmol/L [facility] Creatinine [Mass/Vol] 0.65 mg/dL 0.50 - 1.30 mg/dL [facility] GFR/1.73 sq M.predicted CKD-EPI (S/P/Bld) [Vol rate/Area] 109 - PINF [facility] Comment on above: Estimated GFR was ca lculated using the 2020 CKD-EPI creatinine equation. Glucose [Mass/Vol] 124 mg/dL High 65 - 99 mg/dL [facility] HCO3 [Moles/Vol] 27 mmol/L 21 - 32 mmol/L [facility] Interpretation and review of laboratory results Abnormal [facility] Potassium [Moles/Vol] 4.4 mmol/L 3.5 - 5.1 mmol/L [facility] Sodium [Moles/Vol] 134 mmol/L Low 135 - 145 mmol/L [facility] Urea nitrogen [Mass/Vol] 12 mg/dL 8 - 25 mg/dL [facility] Urea nitrogen/Creatinine [Mass ratio] 18.5 mg/mg 10.0 - 20.0 [facility] has implemented the eGFR calculation approach that does not have a coefficient for race that conforms to the NKF-ASN Task Force Recommendations. [facility] CBC Auto Differentialon 03-22 Basophils (Bld) [#/Vol] 0.01 10*3/uL [facility] Basophils/100 WBC (Bld) 0.3 % [facility] Eosinophils (Bld) [#/Vol] 0.05 10*3/uL [facility] Eosinophils/100 WBC (Bld) 1.6 % [facility] Erythrocyte distribution width (RBC) [Entitic vol] 17.1 % High 11.6 - 14.8 % [facility] Hematocrit (Bld) [Volume fraction] 32.7 % Low 41.0 - 53.0 % [facility] Hemoglobin (Bld) [Mass/Vol] 9.8 g/dL Low 13.5 - 17.5 g/dL [facility] Immature granulocytes (Bld) [#/Vol] 0.01 10*3/uL [facility] Immature granulocytes/100 WBC (Bld) 0.3 % [facility] Comment on above: The IG parameter is the percentage of metamyelocytes, myelocytes and promyelocytes. An immature granulocyte count (IG) of 1% or more suggests the possibility of infection, an IG count of 3% is very likely related to an infection. Lymphocytes (Bld) [#/Vol] 0.5 10*3/uL Low [facility] Lymphocytes/100 WBC (Bld) 15.6 % [facility] MCH (RBC) [Entitic mass] 21.7 pg Low 26.0 - 34.0 pg [facility] MCHC (RBC) [Mass/Vol] 30 g/dL Low 31.0 - 37.0 g/dL [facility] MCV (RBC) [Entitic vol] 72.3 fL Low 80.0 - 100.0 fL [facility] Monocytes (Bld) [#/Vol] 0.25 10*3/uL Low [facility] Monocytes/100 WBC (Bld) 7.8 % [facility] Neutrophils (Bld) [#/Vol] 2.39 10*3/uL [facility] Neutrophils/100 WBC (Bld) 74.4 % [facility] Comment on above: Peripheral smear rev iewed manually Nucleated RBC (Bld) [#/Vol] 0 10*3/uL [facility] Nucleated RBC/100 WBC (Bld) [Ratio] 0 % [facility] Platelet mean volume (Bld) [Entitic vol] 9.3 fL Low 9.4 - 12.4 fL [facility] Platelets (Bld) [#/Vol] 95 10*3/uL Low [facility] RBC (Bld) [#/Vol] 4.52 10*6/uL [facility] ealth WBC (Bld) [#/Vol] 3.21 10*3/uL Low [facility] CBC WITH AUTO DIFFERENTIALon 04-05-2025 AUTO NRBC 0.0 % Normal [facility] Comment on above: Performed By: #### L [id number] #### LAB [address] [address] Jack Mendoza M.D. [id number] AUTO NRBC ABS COUNT 0.00 K/mcL Normal 0.00-0.00 [facility] Comment on above: Performed By: #### L [id number] #### LAB [address] [address] Jack Mendoza M.D. [id number] BASOPHILS ABSOLUTE COUNT 0.01 K/mcL Normal 0.00-0.30 [facility] Comment on above: Performed By: #### L [id number] #### LAB [address] [address] Jack Mendoza M.D. [id number] Basophils/100 WBC (Bld) 0.3 % Normal [facility] Comment on above: Performed By: #### L [id number] #### LAB [address] [place] [address] Jack Mendoza M.D. [id number] Eosinophils (Bld) [#/Vol] 0.05 10*3/uL Normal 0.00-0.50 [facility] Comment on above: Performed By: #### L [id number] #### LAB [address] [place] [address] Jack Mendoza M.D. [id number] Eosinophils/100 WBC (Bld) 1.6 % [facility] Comment on above: Performed By: #### L [id number] #### LAB [address] [place] [address] Jack Mendoza M.D. [id number] Erythrocyte distribution width (RBC) [Ratio] 17.1 % High 11.6-14.8 [facility] Comment on above: Performed By: #### L [id number] #### LAB [address] [place] [address] Jack Mendoza M.D. [id number] Hematocrit (Bld) [Volume fraction] 32.7 % Low 41.0-53.0 [facility] Comment on above: Performed By: #### L [id number] #### LAB [address] [address] Jack Mendoza M.D. [id number] Hemoglobin (Bld) [Mass/Vol] 9.8 g/dL Low 13.5-17.5 [facility] Comment on above: Performed By: #### L [id number] #### LAB [address] [address] Jack Mendoza M.D. [id number] IG ABSOLUTE 0.01 K/mcL Normal 0.00-0.30 [facility] Comment on above: Performed By: #### L [id number] #### LAB [address] [address] Jack Mendoza M.D. [id number] IG PERCENT 0.30 % [facility] Comment on above: Result Comment: The IG parameter is the percentage of metamyelocytes, myelocytes and promyelocytes. An immature granulocyte count (IG) of 1% or more suggests the possibility of infection, an IG count of 3% is very likely related to an infection. Performed By: #### L [id number] #### LAB [address] [address] Jack Mendoza M.D. [id number] Lymphocytes (Bld) [#/Vol] 0.50 10*3/uL Low 0.90-4.00 [facility] Comment on above: Performed By: #### L [id number] #### LAB [address] [address] Jack Mendoza M.D. [id number] Lymphocytes/100 WBC (Bld) 15.6 % [facility] Comment on above: Performed By: #### L [id number] #### LAB [address] [address] Jack Mendoza M.D. [id number] MCH (RBC) [Entitic mass] 21.7 pg Low 26.0-34.0 [facility] Comment on above: Performed By: #### L [id number] #### LAB [address] [address] Jack Mendoza M.D. [id number] MCV (RBC) [Entitic vol] 72.3 fL Low 80.0-100.0 [facility] Comment on above: Performed By: #### L [id number] #### LAB [address] [address] Jack Mendoza M.D. [id number] MEAN CORPUSCULAR HEMOGLOBIN CONC 30.0 g/dL Low 31.0-37.0 [facility] Comment on above: Performed By: #### L [id number] #### LAB [address] [address] Jack Mendoza M.D. [id number] Monocytes (Bld) [#/Vol] 0.25 10*3/uL Low 0.30-0.90 [facility] Comment on above: Performed By: #### L [id number] #### LAB [address] [place] [address] Jack Mendoza M.D. [id number] Monocytes/100 WBC (Bld) 7.8 % Normal [facility] Comment on above: Performed By: #### L [id number] #### LAB [address] [place] [address] Jack Mendoza M.D. [id number] NEUTROPHILS ABSOLUTE COUNT 2.39 K/mcL Normal 1.70-7.00 [facility] Comment on above: Performed By: #### L [id number] #### LAB [address] [place] [address] Jack Mendoza M.D. [id number] Neutrophils/100 WBC (Bld) 74.4 % Normal [facility] Comment on above: Result Comment: Tiffany pheral smear reviewed manually Performed By: #### L [id number] #### LAB [address] [place] [address] Jack Mendoza M.D. [id number] Platelet mean volume (Bld) [Entitic vol] 9.3 fL Low 9.4-12.4 [facility] Comment on above: Performed By: #### L [id number] ####[facility] [address] [address] Jack Mendoza M.D. [id number] Platelets (Bld) [#/Vol] 95 10*3/uL Low 150-400 [facility] Comment on above: Performed By: #### L [id number] ####[facility] [address] [address] Jack Mendoza M.D. [id number] RBC (Bld) [#/Vol] 4.52 10*6/uL Normal 4.50-5.90 [facility] Comment on above: Performed By: #### L [id number] ####[facility] [address] [address] Jack Mendoza M.D. [id number] WBC (Bld) [#/Vol] 3.21 10*3/uL Low 4.50-11.00 [facility] Comment on above: Performed By: #### L [id number] ####[facility] [address] [address] Jack Mendoza M.D. [id number] CBC and Diff Morphologyon Ovalocytes LM Ql (Bld) Moderate [facility] Platelets LM Ql (Bld) Decreased Abnormal Normal [facility] Polychromasia LM Ql (Bld) Few [facility] RBC morphology finding Nom (Bld) See Comment [facility] Comment on above: RBC Indices confirme d with manual peripheral smear review. Disch Summon 04-05-2025 Disch Summ Normal [facility] LACTIC ACID, PLASMAon 2024 LACTIC ACID, PLASMA 0.7 mmol/L Normal 0.6-2.0 [facility] Comment on above: Performed By: #### 4 [id number] ####[facility] [address] [address] Jack Mendoza M.D. [id number] Lactate [Moles/Vol]on 2024 Interpretation and review of laboratory results Normal [facility] Lactic Acid, Plasmaon 2024 Lactate [Moles/Vol] 0.7 mmol/L 0.6 - 2. 0 mmol/L [facility] MORPHOLOGYon 04-05-2025 OVAL SCAN Moderate Normal [facility] Comment on above: Performed By: #### L [id number] ####[facility] [address] [address] Jack Mendoza M.D. [id number] PLATELET ESTIMATE Decreased Abnormal Normal [facility] Comment on above: Performed By: #### L [id number] ####[facility] [address] [address] Jack Mendoza M.D. [id number] POLY SCAN Few Normal [facility] Comment on above: Performed By: #### L [id number] ####[facility] [address] [address] Jack Mendoza M.D. [id number] RBC MORPH SCAN See Comment Normal [facility] Comment on above: Result Comment: RBC Indices confirmed with manual peripheral smear review. Performed By: #### L [id number] ####[facility] [address] [address] Jack Mendoza M.D. [id number] No Panel Informationon 04-05 Interpretation and review of laboratory results Abnormal [facility] XR CHEST PA/APon 04-05-2025 XR CHEST PA/AP Normal [facility] Comment on above: Order Comment: Injur y/Trauma or Illness?:Illness/OtherHow long have you had these symptoms (acute/chronic)?:AcuteReason for exam?:Respiratory failureHistory of cancer?:uSurgeries, chemotherapy, or radiation?:uType of Exam?:InitialAdditional signs and symptoms?:. BASIC METABOLIC PANELon 03-22 Anion gap [Moles/Vol] 15 mmol/L Normal - [facility] Comment on above: Order Comment: [facility] has implemented the eGFR calculation approach that does not have a coefficient for race that conforms to the NKF-ASN Task Force Recommendations. Performed By: #### 4 6124 ####[facility] [address], [place] [address] Jack Mendoza M.D. [id number] Calcium [Mass/Vol] 8.7 mg/dL Normal 8.4-10.2 [facility] Comment on above: Order Comment: [facility] has implemented the eGFR calculation approach that does not have a coefficient for race that conforms to the NKF-ASN Task Force Recommendations. Performed By: #### 4 6124 ####[facility] [address] [address] Jack Mendoza M.D. [id number] Chloride [Moles/Vol] 96 mmol/L Low 98-108 [facility] Comment on above: Order Comment: [facility] has implemented the eGFR calculation approach that does not have a coefficient for race that conforms to the NKF-ASN Task Force Recommendations. Performed By: #### 4 6124 #### LAB [address] [address] Jack Mendoza M.D. [id number] Creatinine [Mass/Vol] 0.65 mg/dL Normal 0.50-1.30 [facility] Comment on above: Order Comment: [facility] has implemented the eGFR calculation approach that does not have a coefficient for race that conforms to the NKF-ASN Task Force Recommendations. Performed By: #### 4 6124 #### LAB [address] [address] Jack Mendoza M.D. [id number] EGFR 109 mL/min/1.73 m2 Normal >=60 [facility] Comment on above: Order Comment: [facility] has implemented the eGFR calculation approach that does not have a coefficient for race that conforms to the NKF-ASN Task Force Recommendations. Result Comment: Ashley mated GFR was calculated using the 2020 CKD-EPI creatinine equation. Performed By: #### 4 6124 #### LAB [address] [address] Jack Mendoza M.D. [id number] Glucose [Mass/Vol] 124 mg/dL High 65-99 [facility] Comment on above: Order Comment: [facility] has implemented the eGFR calculation approach that does not have a coefficient for race that conforms to the NKF-ASN Task Force Recommendations. Performed By: #### 4 6124 #### LAB [address] [address] Jack Mendoza M.D. [id number] HCO3 (Bld) [Moles/Vol] 27 mmol/L Normal 21-32 [facility] Comment on above: Order Comment: [facility] has implemented the eGFR calculation approach that does not have a coefficient for race that conforms to the NKF-ASN Task Force Recommendations. Performed By: #### 4 6124 #### LAB [address] [address] Jack Mendoza M.D. [id number] Potassium [Moles/Vol] 4.4 mmol/L Normal 3.5-5.1 [facility] Comment on above: Order Comment: [facility] has implemented the eGFR calculation approach that does not have a coefficient for race that conforms to the NKF-ASN Task Force Recommendations. Performed By: #### 4 6124 #### LAB [address] [address] Jack Mendoza M.D. [id number] Sodium [Moles/Vol] 134 mmol/L Low 135-145 [facility] Comment on above: Order Comment: [facility] has implemented the eGFR calculation approach that does not have a coefficient for race that conforms to the NKF-ASN Task Force Recommendations. Performed By: #### 4 6149 #### LAB [address] [address] Jack Mendoza M.D. [id number] Urea nitrogen [Mass/Vol] 12 mg/dL Normal 8-25 [facility] Comment on above: Order Comment: [facility] has implemented the eGFR calculation approach that does not have a coefficient for race that conforms to the NKF-ASN Task Force Recommendations. Performed By: #### 4 6190 #### LAB [address] [address] Jack Mendoza M.D. [id number] Urea nitrogen/Creatinine [Mass ratio] 18.5 mg/mg Normal 10.0-20.0 [facility] Comment on above: Order Comment: [facility] has implemented the eGFR calculation approach that does not have a coefficient for race that conforms to the NKF-ASN Task Force Recommendations. Performed By: #### 4 6124 ####[facility] [address], [place] [address] Jack Mendoza M.D. [id number] CBC Auto Differentialon 03-22 Basophils (Bld) [#/Vol] 0.02 10*3/uL [facility] Basophils/100 WBC (Bld) 0.4 % [facility] Eosinophils (Bld) [#/Vol] 0.13 10*3/uL [facility] Eosinophils/100 WBC (Bld) 2.8 % [facility] Erythrocyte distribution width (RBC) [Entitic vol] 17.2 % High 11.6 - 14.8 % [facility] Hematocrit (Bld) [Volume fraction] 37.6 % Low 41.0 - 53.0 % [facility] Hemoglobin (Bld) [Mass/Vol] 11.2 g/dL Low 13.5 - 17.5 g/dL [facility] Immature granulocytes (Bld) [#/Vol] 0.02 10*3/uL [facility] Immature granulocytes/100 WBC (Bld) 0.4 % [facility] Comment on above: The IG parameter is the percentage of metamyelocytes, myelocytes and promyelocytes. An immature granulocyte count (IG) of 1% or more suggests the possibility of infection, an IG count of 3% is very likely related to an infection. Interpretation and review of laboratory results Abnormal [facility] Lymphocytes (Bld) [#/Vol] 1.13 10*3/uL [facility] Lymphocytes/100 WBC (Bld) 24 % [facility] MCH (RBC) [Entitic mass] 21.5 pg Low 26.0 - 34.0 pg [facility] MCHC (RBC) [Mass/Vol] 29.8 g/dL Low 31.0 - 37.0 g/dL [facility] MCV (RBC) [Entitic vol] 72.2 fL Low 80.0 - 100.0 fL [facility] Monocytes (Bld) [#/Vol] 0.42 10*3/uL [facility] Monocytes/100 WBC (Bld) 8.9 % [facility] Neutrophils (Bld) [#/Vol] 2.99 10*3/uL [facility] Neutrophils/100 WBC (Bld) 63.5 % [facility] Nucleated RBC (Bld) [#/Vol] 0 10*3/uL [facility] Nucleated RBC/100 WBC (Bld) [Ratio] 0 % [facility] Platelet mean volume (Bld) [Entitic vol] 9.9 fL 9.4 - 12.4 fL [facility] Platelets (Bld) [#/Vol] 124 10*3/uL Low [facility] RBC (Bld) [#/Vol] 5.21 10*6/uL [facility] WBC (Bld) [#/Vol] 4.71 10*3/uL [facility] CBC WITH AUTO DIFFERENTIALon 04-04-2025 AUTO NRBC 0.0 % [facility] Comment on above: Performed By: #### L [id number] #### LAB [address] [address] Jack Mendoza M.D. [id number] AUTO NRBC ABS COUNT 0.00 K/mcL Normal 0.00-0.00 [facility] Comment on above: Performed By: #### L [id number] #### LAB [address] [address] Jack Mendoza M.D. [id number] BASOPHILS ABSOLUTE COUNT 0.02 K/mcL Normal 0.00-0.30 [facility] Comment on above: Performed By: #### L [id number] #### LAB [address] [address] Jack Mendoza M.D. [id number] Basophils/100 WBC (Bld) 0.4 % Normal [facility] Comment on above: Performed By: #### L [id number] #### LAB [address] [address] Jack Mendoza M.D. [id number] Eosinophils (Bld) [#/Vol] 0.13 10*3/uL Normal 0.00-0.50 [facility] Comment on above: Performed By: #### L [id number] #### LAB [address] [address] Jack Mendoza M.D. [id number] Eosinophils/100 WBC (Bld) 2.8 % Normal [facility] Comment on above: Performed By: #### L [id number] #### LAB [address] [address] Jack Mendoza M.D. [id number] Erythrocyte distribution width (RBC) [Ratio] 17.2 % High 11.6-14.8 [facility] Comment on above: Performed By: #### L [id number] #### LAB [address] [address] Jack Mendoza M.D. [id number] Hematocrit (Bld) [Volume fraction] 37.6 % Low 41.0-53.0 [facility] Comment on above: Performed By: #### L [id number] #### LAB [address] [address] Jack Mendoza M.D. [id number] Hemoglobin (Bld) [Mass/Vol] 11.2 g/dL Low 13.5-17.5 [facility] Comment on above: Performed By: #### L [id number] #### LAB [address] [address] Jack Mendoza M.D. [id number] IG ABSOLUTE 0.02 K/mcL Normal 0.00-0.30 [facility] Comment on above: Performed By: #### L [id number] #### LAB [address] [address] Jack Mendoza M.D. [id number] IG PERCENT 0.40 % Normal [facility] Comment on above: Result Comment: The IG parameter is the percentage of metamyelocytes, myelocytes and promyelocytes. An immature granulocyte count (IG) of 1% or more suggests the possibility of infection, an IG count of 3% is very likely related to an infection. Performed By: #### L [id number] #### LAB [address] [place] [address] Jack Mendoza M.D. [id number] Lymphocytes (Bld) [#/Vol] 1.13 10*3/uL Normal 0.90-4.00 [facility] Comment on above: Performed By: #### L [id number] #### LAB [address] [place] [address] Jack Mendoza M.D. [id number] Lymphocytes/100 WBC (Bld) 24.0 % Normal [facility] Comment on above: Performed By: #### L [id number] #### LAB [address] [address] Jack Mendoza M.D. [id number] MCH (RBC) [Entitic mass] 21.5 pg Low 26.0-34.0 [facility] Comment on above: Performed By: #### L [id number] #### LAB [address] [place] [address] Jack Mendoza M.D. [id number] MCV (RBC) [Entitic vol] 72.2 fL Low 80.0-100.0 [facility] Comment on above: Performed By: #### L [id number] #### LAB [address] [place] [address] Jack Mendoza M.D. [id number] MEAN CORPUSCULAR HEMOGLOBIN CONC 29.8 g/dL Low 31.0-37.0 [facility] Comment on above: Performed By: #### L [id number] #### LAB [address] [place] [address] Jack Mendoza M.D. [id number] Monocytes (Bld) [#/Vol] 0.42 10*3/uL Normal 0.30-0.90 [facility] Comment on above: Performed By: #### L [id number] #### LAB [address] [place] [address] Jack Mendoza M.D. [id number] Monocytes/100 WBC (Bld) 8.9 % [facility] Comment on above: Performed By: #### L [id number] #### LAB [address] [address] Jack Mendoza M.D. [id number] NEUTROPHILS ABSOLUTE COUNT 2.99 K/mcL Normal 1.70-7.00 [facility] Comment on above: Performed By: #### L [id number] #### LAB [address] [address] Jack Mendoza M.D. [id number] Neutrophils/100 WBC (Bld) 63.5 % Normal [facility] Comment on above: Performed By: #### L [id number] #### LAB [address] [address] Jack Mendoza M.D. [id number] Platelet mean volume (Bld) [Entitic vol] 9.9 fL Normal 9.4-12.4 [facility] Comment on above: Performed By: #### L [id number] #### LAB [address] [address] Jack Mendoza M.D. [id number] Platelets (Bld) [#/Vol] 124 10*3/uL Low 150-400 [facility] Comment on above: Performed By: #### L [id number] #### LAB [address] [address] Jack Mendoza M.D. [id number] RBC (Bld) [#/Vol] 5.21 10*6/uL Normal 4.50-5.90 [facility] Comment on above: Performed By: #### L [id number] #### LAB [address] [address] Jack Mendoza M.D. [id number] WBC (Bld) [#/Vol] 4.71 10*3/uL Normal 4.50-11.00 [facility] Comment on above: Performed By: #### L [id number] #### LAB [address] [address] Jack Mendoza M.D. [id number] Glucose (Bld) [Mass/Vol]on 04-04-2025 Glucose [Mass/Vol] 143 mg/dL High 65 - 99 mg/dL [facility] Interpretation and review of laboratory results Abnormal [facility] POC ARTERIAL BLOOD GAS PANEL -ERIKA Ortega 04-04-2025 [id number] 101.3 mm Hg Normal [facility] Comment on above: Order Comment: Criti drea result acted upon time of test. Test performed at bedside. BASE EXCESS, ARTERIAL 0.9 Normal -2.0-2.0 [facility] Comment on above: Order Comment: Criti drea result acted upon time of test. Test performed at bedside. CALCIUM IONIZED 4.7 mg/dL Normal 4.5-5.3 [facility] Comment on above: Order Comment: Criti drea result acted upon time of test. Test performed at bedside. CARBOXYHEMOGLOBIN 1.7 % of total Hb High <=1.5 [facility] Comment on above: Order Comment: Criti drea result acted upon time of test. Test performed at bedside. Result Comment: Refe rence Ranges:Suburban Non-smokers: <1.5%Smokers: 1.5-5.0%Heavy Smokers: 5.0-9.0% Chloride [Moles/Vol] 97 mmol/L Low 98-108 [facility] Comment on above: Order Comment: Criti drea result acted upon time of test. Test performed at bedside. FIO2 44 Normal [facility] Comment on above: Order Comment: Criti drea result acted upon time of test. Test performed at bedside. Glucose [Mass/Vol] 126 mg/dL High 65-99 [facility] Comment on above: Order Comment: Criti drea result acted upon time of test. Test performed at bedside. HCO3 (Bld) [Moles/Vol] 29.6 mmol/L High 22.0-26.0 [facility] Comment on above: Order Comment: Criti drea result acted upon time of test. Test performed at bedside. Hematocrit (Bld) [Volume fraction] 36.2 % Low 41.0-53.0 [facility] Comment on above: Order Comment: Criti drea result acted upon time of test. Test performed at bedside. Hemoglobin (Bld) [Mass/Vol] 11.8 g/dL Low 13.5-17.5 [facility] Comment on above: Order Comment: Criti drea result acted upon time of test. Test performed at bedside. LACTIC ACID, WHOLE BLOOD 4.7 mmol/L Off scale high 0.6-2.0 [facility] Comment on above: Order Comment: Criti drea result acted upon time of test. Test performed at bedside. LITER FLOW 6 Normal [facility] Comment on above: Order Comment: Criti drea result acted upon time of test. Test performed at bedside. METHEMOGLOBIN 0.4 % Normal 0.0-2.0 [facility] Comment on above: Order Comment: Criti drea result acted upon time of test. Test performed at bedside. O2HB 96.2 % Normal 94.0-98.0 [facility] Comment on above: Order Comment: Criti drea result acted upon time of test. Test performed at bedside. Oxygen saturation in Blood 98.4 % Normal 92.0-99.0 [facility] Comment on above: Order Comment: Criti drea result acted upon time of test. Test performed at bedside. PCO2 ARTERIAL 68.5 mm Hg High 35.0-45.0 [facility] Comment on above: Order Comment: Criti drea result acted upon time of test. Test performed at bedside. PH ARTERIAL 7.24 Low 7.35-7.45 [facility] Comment on above: Order Comment: Criti drea result acted upon time of test. Test performed at bedside. PO2 ARTERIAL 123 mm Hg High 80-100 [facility] Comment on above: Order Comment: Criti drea result acted upon time of test. Test performed at bedside. Potassium [Moles/Vol] 4.1 mmol/L Normal 3.5-5.1 [facility] Comment on above: Order Comment: Criti drea result acted upon time of test. Test performed at bedside. Sodium [Moles/Vol] 136 mmol/L Normal 135-145 [facility] Comment on above: Order Comment: Criti drea result acted upon time of test. Test performed at bedside. SPECIMEN SOURCE RADIANCE Radial, right Normal [facility] Comment on above: Order Comment: Criti drea result acted upon time of test. Test performed at bedside. POC Arterial Blood Gas Panel -Pulmon 04-04-2025 Alveolar-arterial oxygen Partial pressure difference 101.3 mm Hg [facility] Base excess Calc (Bld) [Moles/Vol] 0.9 mmol/L -2.0 - 2.0 [facility] Calcium.ionized [Mass/Vol] 4.7 mg/dL 4.5 - 5.3 mg/dL [facility] Carboxyhemoglobin (BldA) [Mass fraction] 1.7 High [facility] Comment on above: Reference Ranges: [place]urban Non-smokers: <1.5% Smokers: 1.5-5.0% Heavy Smokers: 5.0-9.0% CO2 (Bld) [Partial pressure] 68.5 mm[Hg] High [facility] Glucose post fast [Mass/Vol] 126 mg/dL High 65 - 99 mg/dL [facility] Hematocrit (BldA) [Volume fraction] 36.2 % Low 41.0 - 53.0 % [facility] Inhaled oxygen concentration 44 % [facility] Inhaled oxygen flow rate 6 L/min [facility] Interpretation and review of laboratory results Abnormal [facility] Lactate [Moles/Vol] 4.7 mmol/L Critically high 0.6 - 2.0 mmol/L [facility] Methemoglobin (BldA) [Mass fraction] 0.4 % 0.0 - 2.0 % [facility] Oxygen (Bld) [Partial pressure] 123 mm[Hg] High [facility] Oxyhemoglobin (BldA) [Mass fraction] 96.2 % 94.0 - 98.0 % [facility] pH (Bld) 7.24 [pH] Low 7.35 - 7.45 [facility] Specimen source Nom (Unsp spec) Radial, right [facility] Critical result acte d upon time of test. Test performed at bedside. [facility] POC GLUCOSE - Shannon 025 Glucose [Mass/Vol] 143 mg/dL High 65-99 [facility] AMMONIAon 04-02-2025 AMMONIA 49 micromol/L High 12 [facility] Comment on above: Performed By: #### 4 [id number] #### LAB [address], [place] [address] Jack Mendoza M.D. [id number] Ammoniaon 04-02-2025 Ammonia (P) [Mass/Vol] 49 ug/dL High [facility] Ammonia (P) [Mass/Vol]on Interpretation and review of laboratory results Abnormal [facility] BASIC METABOLIC PANELon 03-22 Anion gap [Moles/Vol] 11 mmol/L Normal 10-20 [facility] Comment on above: Order Comment: [facility] has implemented the eGFR calculation approach that does not have a coefficient for race that conforms to the NKF-ASN Task Force Recommendations. Performed By: #### 4 6124 #### LAB [address] [address] Jack Mendoza M.D. [id number] Calcium [Mass/Vol] 8.8 mg/dL Normal 8.4-10.2 [facility] Comment on above: Order Comment: [facility] has implemented the eGFR calculation approach that does not have a coefficient for race that conforms to the NKF-ASN Task Force Recommendations. Performed By: #### 4 6124 #### LAB [address] [id number] Jack Mendoza M.D. [id number] Chloride [Moles/Vol] 99 mmol/L Normal 98-108 [facility] Comment on above: Order Comment: [facility] has implemented the eGFR calculation approach that does not have a coefficient for race that conforms to the NKF-ASN Task Force Recommendations. Performed By: #### 4 6124 #### LAB [address] [address] Jack Mendoza M.D. [id number] Creatinine [Mass/Vol] 0.47 mg/dL Low 0.50-1.30 [facility] Comment on above: Order Comment: [facility] has implemented the eGFR calculation approach that does not have a coefficient for race that conforms to the NKF-ASN Task Force Recommendations. Performed By: #### 4 6124 #### LAB [address] [address] Jack Mendoza M.D. [id number] EGFR 120 mL/min/1.73 m2 Normal >=60 [facility] Comment on above: Order Comment: [facility] has implemented the eGFR calculation approach that does not have a coefficient for race that conforms to the NKF-ASN Task Force Recommendations. Result Comment: Ashley mated GFR was calculated using the 2020 CKD-EPI creatinine equation. Performed By: #### 4 6124 #### LAB [address] [address] Jack Mendoza M.D. [id number] Glucose [Mass/Vol] 110 mg/dL High 65-99 [facility] Comment on above: Order Comment: [facility] has implemented the eGFR calculation approach that does not have a coefficient for race that conforms to the NKF-ASN Task Force Recommendations. Performed By: #### 4 6124 #### LAB [address] [address] Jack Mendoza M.D. [id number] HCO3 (Bld) [Moles/Vol] 29 mmol/L Normal 21-32 [facility] Comment on above: Order Comment: [facility] has implemented the eGFR calculation approach that does not have a coefficient for race that conforms to the NKF-ASN Task Force Recommendations. Performed By: #### 4 6124 #### LAB [address] [id number] Jack Mendoza M.D. [id number] Potassium [Moles/Vol] 4.4 mmol/L Normal 3.5-5.1 [facility] Comment on above: Order Comment: [facility] has implemented the eGFR calculation approach that does not have a coefficient for race that conforms to the NKF-ASN Task Force Recommendations. Result Comment: Slig htly Hemolyzed Performed By: #### 4 6124 #### LAB [address] [address] Jack Mendoza M.D. [id number] Sodium [Moles/Vol] 135 mmol/L Normal 135-145 [facility] Comment on above: Order Comment: [facility] has implemented the eGFR calculation approach that does not have a coefficient for race that conforms to the NKF-ASN Task Force Recommendations. Performed By: #### 4 6124 #### LAB [address] [id number] Jack Mendoza M.D. [id number] Urea nitrogen [Mass/Vol] 13 mg/dL Normal 8-25 [facility] Comment on above: Order Comment: [facility] has implemented the eGFR calculation approach that does not have a coefficient for race that conforms to the NKF-ASN Task Force Recommendations. Performed By: #### 4 6124 #### LAB [address], [place] [address] Jack Mendoza M.D. [id number] Urea nitrogen/Creatinine [Mass ratio] 27.7 mg/mg High 10.0-20.0 [facility] Comment on above: Order Comment: [facility] has implemented the eGFR calculation approach that does not have a coefficient for race that conforms to the NKF-ASN Task Force Recommendations. Performed By: #### 4 [id number] ####[facility] [address], [place] [address] Jack Mendoza M.D. [id number] BLOOD CULTURE AEROBIC/ANAERO BICon 04-02-2025 BLOOD CULTURE AEROBIC/ANAEROBIC BLOOD CULTURE No Growth after 5 days Normal [facility] Comment on above: Performed By: #### 4 [id number] ####[facility] [address] [place] [address] Venancio Richardson M.D. [id number] Basic metabolic 2000 panelOr dered By: Caty Sanchez on 04-02-2025 Anion gap [Moles/Vol] 11 mmol/L 10 - 20 mmol/L [facility] Calcium [Mass/Vol] 8.8 mg/dL 8.4 - 10. 2 mg/dL [facility] Chloride [Moles/Vol] 99 mmol/L 98 - 10 8 mmol/L [facility] Creatinine [Mass/Vol] 0.47 mg/dL Low 0.50 - 1.30 mg/dL [facility] GFR/1.73 sq M.predicted CKD-EPI (S/P/Bld) [Vol rate/Area] 120 - PINF [facility] Comment on above: Estimated GFR was ca lculated using the 2020 CKD-EPI creatinine equation. Glucose [Mass/Vol] 110 mg/dL High 65 - 99 mg/dL [facility] HCO3 [Moles/Vol] 29 mmol/L 21 - 32 mmol/L [facility] Interpretation and review of laboratory results Abnormal [facility] Potassium [Moles/Vol] 4.4 mmol/L 3.5 - 5.1 mmol/L [facility] Comment on above: Slightly Hemolyzed Sodium [Moles/Vol] 135 mmol/L 135 - 145 mmol/L [facility] Urea nitrogen [Mass/Vol] 13 mg/dL 8 - 25 mg/dL [facility] Urea nitrogen/Creatinine [Mass ratio] 27.7 mg/mg High 10.0 - 20.0 [facility] has implemented the eGFR calculation approach that does not have a coefficient for race that conforms to the NKF-ASN Task Force Recommendations. [facility] CBC Auto Differentialon 03-22 Basophils (Bld) [#/Vol] 0.01 10*3/uL [facility] Basophils/100 WBC (Bld) 0.3 % [facility] Eosinophils (Bld) [#/Vol] 0.04 10*3/uL [facility] Eosinophils/100 WBC (Bld) 1.3 % [facility] Erythrocyte distribution width (RBC) [Entitic vol] 18.7 % High 11.6 - 14.8 % [facility] Hematocrit (Bld) [Volume fraction] 35.8 % Low 41.0 - 53.0 % [facility] Hemoglobin (Bld) [Mass/Vol] 10.9 g/dL Low 13.5 - 17.5 g/dL [facility] Immature granulocytes (Bld) [#/Vol] 0.03 10*3/uL [facility] Immature granulocytes/100 WBC (Bld) 1 % [facility] Comment on above: The IG parameter is the percentage of metamyelocytes, myelocytes and promyelocytes. An immature granulocyte count (IG) of 1% or more suggests the possibility of infection, an IG count of 3% is very likely related to an infection. Lymphocytes (Bld) [#/Vol] 0.47 10*3/uL Low [facility] Lymphocytes/100 WBC (Bld) 15.7 % [facility] MCH (RBC) [Entitic mass] 21.6 pg Low 26.0 - 34.0 pg [facility] MCHC (RBC) [Mass/Vol] 30.4 g/dL Low 31.0 - 37.0 g/dL [facility] MCV (RBC) [Entitic vol] 71 fL Low 80.0 - 100.0 fL [facility] Monocytes (Bld) [#/Vol] 0.25 10*3/uL Low [facility] Monocytes/100 WBC (Bld) 8.3 % [facility] Neutrophils (Bld) [#/Vol] 2.2 10*3/uL [facility] Neutrophils/100 WBC (Bld) 73.4 % [facility] Comment on above: Peripheral smear rev iewed manually Nucleated RBC (Bld) [#/Vol] 0 10*3/uL [facility] Nucleated RBC/100 WBC (Bld) [Ratio] 0 % [facility] Platelets (Bld) [#/Vol] 117 10*3/uL Low [facility] RBC (Bld) [#/Vol] 5.04 10*6/uL [facility] eah WBC (Bld) [#/Vol] 3 10*3/uL Low [facility] CBC WITH AUTO DIFFERENTIALon 04-02-2025 AUTO NRBC 0.0 % [facility] Comment on above: Performed By: #### L [id number] #### LAB [address] [place] [address] Jack Mendoza M.D. [id number] AUTO NRBC ABS COUNT 0.00 K/mcL Normal 0.00-0.00 [facility] Comment on above: Performed By: #### L [id number] #### LAB [address] [place] [address] Jack Mendoza M.D. [id number] BASOPHILS ABSOLUTE COUNT 0.01 K/mcL Normal 0.00-0.30 [facility] Comment on above: Performed By: #### L [id number] #### LAB [address] [place] [address] Jack Mendoza M.D. [id number] Basophils/100 WBC (Bld) 0.3 % [facility] Comment on above: Performed By: #### L [id number] #### LAB [address] [place] [address] Jack Mendoza M.D. [id number] Eosinophils (Bld) [#/Vol] 0.04 10*3/uL Normal 0.00-0.50 [facility] Comment on above: Performed By: #### L [id number] #### LAB [address] [place] [address] Jack Mendoza M.D. [id number] Eosinophils/100 WBC (Bld) 1.3 % Normal [facility] Comment on above: Performed By: #### L [id number] #### LAB [address] [address] Jack Mendoza M.D. [id number] Erythrocyte distribution width (RBC) [Ratio] 18.7 % High 11.6-14.8 [facility] Comment on above: Performed By: #### L [id number] #### LAB [address] [address] Jack Mendoza M.D. [id number] Hematocrit (Bld) [Volume fraction] 35.8 % Low 41.0-53.0 [facility] Comment on above: Performed By: #### L [id number] #### LAB [address] [address] Jack Mnedoza M.D. [id number] Hemoglobin (Bld) [Mass/Vol] 10.9 g/dL Low 13.5-17.5 [facility] Comment on above: Performed By: #### L [id number] #### LAB [address] [address] Jack Mendoza M.D. [id number] IG ABSOLUTE 0.03 K/mcL Normal 0.00-0.30 [facility] Comment on above: Performed By: #### L [id number] #### LAB [address] [address] Jack Mendoza M.D. [id number] IG PERCENT 1.00 % Normal [facility] Comment on above: Result Comment: The IG parameter is the percentage of metamyelocytes, myelocytes and promyelocytes. An immature granulocyte count (IG) of 1% or more suggests the possibility of infection, an IG count of 3% is very likely related to an infection. Performed By: #### L [id number] #### LAB [address] [place] [address] Jack Mendoza M.D. [id number] Lymphocytes (Bld) [#/Vol] 0.47 10*3/uL Low 0.90-4.00 [facility] Comment on above: Performed By: #### L [id number] #### LAB [address] [address] Jack Mendoza M.D. [id number] Lymphocytes/100 WBC (Bld) 15.7 % Normal [facility] Comment on above: Performed By: #### L [id number] #### LAB [address] [address] Jack Mendoza M.D. [id number] MCH (RBC) [Entitic mass] 21.6 pg Low 26.0-34.0 [facility] Comment on above: Performed By: #### L [id number] #### LAB [address] [address] Jack Mendoza M.D. [id number] MCV (RBC) [Entitic vol] 71.0 fL Low 80.0-100.0 [facility] Comment on above: Performed By: #### L [id number] #### LAB [address] [address] Jack Mendoza M.D. [id number] MEAN CORPUSCULAR HEMOGLOBIN CONC 30.4 g/dL Low 31.0-37.0 [facility] Comment on above: Performed By: #### L [id number] #### LAB [address] [address] Jack Mendoza M.D. [id number] Monocytes (Bld) [#/Vol] 0.25 10*3/uL Low 0.30-0.90 [facility] Comment on above: Performed By: #### L [id number] #### LAB [address] [address] Jack Mendoza M.D. [id number] Monocytes/100 WBC (Bld) 8.3 % Normal [facility] Comment on above: Performed By: #### L [id number] #### LAB [address] [address] Jack Mendoza M.D. [id number] NEUTROPHILS ABSOLUTE COUNT 2.20 K/mcL Normal 1.70-7.00 [facility] Comment on above: Performed By: #### L [id number] #### LAB [address] [address] Jack Mendoza M.D. [id number] Neutrophils/100 WBC (Bld) 73.4 % Normal [facility] Comment on above: Result Comment: Tiffany pheral smear reviewed manually Performed By: #### L [id number] ####[facility] [address] [address] Jack Mendoza M.D. [id number] Platelets (Bld) [#/Vol] 117 10*3/uL Low 150-400 [facility] Comment on above: Performed By: #### L [id number] ####[facility] [address] [address] Jack Mendoza M.D. [id number] RBC (Bld) [#/Vol] 5.04 10*6/uL Normal 4.50-5.90 [facility] Comment on above: Performed By: #### L [id number] #### LAB [address] [address] Jack Mendoza M.D. [id number] WBC (Bld) [#/Vol] 3.00 10*3/uL Low 4.50-11.00 [facility] Comment on above: Performed By: #### L [id number] #### LAB [address] [address] Jack Mendoza M.D. [id number] CBC and Diff Morphologyon Roe cells LM Ql (Bld) Few [facility] Ovalocytes LM Ql (Bld) Moderate [facility] Platelets LM Ql (Bld) Decreased Abnormal Normal [facility] Polychromasia LM Ql (Bld) Few [facility] RBC morphology finding Nom (Bld) See Comment [facility] Comment on above: RBC Indices confirme d with manual peripheral smear review. Target cells LM Ql (Bld) Few [facility] CRP [Mass/Vol]on 04-02-2025 Interpretation and review of laboratory results Abnormal [facility] CRP, INFLAMMATIONon 04-02-20 CRP [Mass/Vol] 16.3 mg/L High 0.0-10.0 [facility] Comment on above: Performed By: #### 4 5334 #### LAB [address] [id number] Jack Mendoza M.D. [id number] CRP, Inflammationon 04-02-20 CRP [Mass/Vol] 16.3 mg/L High 0.0 - 10.0 mg/L [facility] ED Prov Noteon 04-02-2025 ED Prov Note Normal [facility] ESR Westergren method (Bld) [Velocity]on 04-02-2025 ESR (Bld) [Velocity] 64 mm/h High [facility] Interpretation and review of laboratory results Abnormal [facility] Combs Topon 04-02-2025 Extra Tube Hold for add-ons. [facility] Comment on above: Auto resulted. [facility] H AND Mike 04-02-2025 H AND P Normal [facility] HEPATIC FUNCTION PANELon Albumin [Mass/Vol] 3.4 g/dL Normal 3.2-5.2 [facility] Comment on above: Performed By: #### 4 5866 #### LAB [address] [address] Jack Mendoza M.D. [id number] ALP [Catalytic activity/Vol] 91 U/L Normal 40-150 [facility] Comment on above: Performed By: #### 4 5866 #### LAB [address] [address] Jack Mendoza M.D. [id number] ALT [Catalytic activity/Vol] 13 U/L Normal 0-50 U/L [facility] Comment on above: Performed By: #### 4 5866 ####[facility] [address] [place] [address] Jack Mendoza M.D. [id number] AST [Catalytic activity/Vol] 33 U/L Normal 0-50 U/L [facility] Comment on above: Result Comment: Slig htly Hemolyzed Performed By: #### 4 5866 #### LAB [address] [address] Jack Mendoza M.D. [id number] Bilirubin [Mass/Vol] 0.9 mg/dL Normal 0.0-1.3 [facility] Comment on above: Performed By: #### 4 5866 ####[facility] [address], [place] [address] Jack Mendoza M.D. [id number] Bilirubin.indirect [Mass/Vol] 0.3 mg/dL Normal 0.0-0.4 [facility] Comment on above: Result Comment: Slig htly Hemolyzed Performed By: #### 4 5866 ####[facility] [address], [place] [address] Jack Mendoza M.D. [id number] Protein [Mass/Vol] 8.0 g/dL Normal 6.0-8.0 [facility] Comment on above: Performed By: #### 4 5866 #### LAB [address], [place] [address] Jack Mendoza M.D. [id number] Hepatic function 2000 panelo n 04-02-2025 Albumin [Mass/Vol] 3.4 g/dL 3.2 - 5.2 g/dL [facility] ALP [Catalytic activity/Vol] 91 U/L 40 - 150 U/L [facility] ALT [Catalytic activity/Vol] 13 U/L 0 - 50 U/L [facility] AST [Catalytic activity/Vol] 33 U/L 0 - 50 U/L [facility] Comment on above: Slightly Hemolyzed Bilirubin [Mass/Vol] 0.9 mg/dL 0.0 - 1 .3 mg/dL [facility] Bilirubin.conjugated [Mass/Vol] 0.3 mg/dL 0.0 - 0.4 mg/dL [facility] Comment on above: Slightly Hemolyzed Interpretation and review of laboratory results Normal [facility] Protein [Mass/Vol] 8 g/dL 6.0 - 8.0 g/dL [facility] MORPHOLOGYon 04-02-2025 ROE CELLS Few Normal [facility] Comment on above: Performed By: #### L [id number] ####[facility] [address], [place] [address] Jack Mendoza M.D. [id number] OVAL SCAN Moderate Normal [facility] Comment on above: Performed By: #### L [id number] ####[facility] [address], [place] [address] Jack Mendoza M.D. [id number] PLATELET ESTIMATE Decreased Abnormal Normal [facility] Comment on above: Performed By: #### L [id number] ####[facility] [address] [place] [address] Jack Mendoza M.D. [id number] POLY SCAN Few Normal [facility] Comment on above: Performed By: #### L [id number] ####[facility] [address] [address] Jack Mendoza M.D. [id number] RBC MORPH SCAN See Comment Normal [facility] Comment on above: Result Comment: RBC Indices confirmed with manual peripheral smear review. Performed By: #### L [id number] ####[facility] [address] [address] Jack Mendoza M.D. [id number] TARGET CELL SCAN Few Normal [facility] Comment on above: Performed By: #### L [id number] ####[facility] [address] [address] Jack Mendoza M.D. [id number] NT PRO BNPon 04-02-2025 Natriuretic peptide B (Bld) [Mass/Vol] 189 pg/mL Normal 0-300 [facility] Comment on above: Order Comment: Pride Study Cut-offsRule In:< /= 50 Years >450 pg/mL51 Years - 75 Years >900 pg/mL76 Years - 99 Years >1800 pg/mLRule Out:All patients <300 pg/mL Performed By: #### 4 7395 ####[facility] [address] [address] Jack Mendoza M.D. [id number] NT Pro BNPon 04-02-2025 Natriuretic peptide.B prohormone N-Terminal [Mass/Vol] 189 pg/mL 0 - 300 pg/mL [facility] Natriuretic peptide.B prohor randi N-Terminal [Mass/Vol]on 04-02-2025 Interpretation and review of laboratory results Normal [facility] Pride Study Cut-offs Rule In: < /= 50 Years >450 pg/mL 51 Years - 75 Years >900 pg/mL 76 Years - 99 Years >1800 pg/mL Rule Out: All patients <300 pg/mL [facility] No Panel Informationon 04-02 [facility] Interpretation and review of laboratory results Abnormal [facility] SEDIMENTATION RATEon 025 SEDIMENTATION RATE, ERYTHROCYTE 64 mm/hr High 0-20 [facility] Comment on above: Performed By: #### 4 6477 #### LAB [address] [address] Jack Mendoza M.D. [id number] TROPONIN X 2 (NOW AND REPEAT IN 2 HOURS)on 04-02-2025 TROPONIN T DELTA CHANGE INTERPRETATION Delta troponin requires at least 2 hours between collections. Normal [facility] Comment on above: Performed By: #### 4 6608 #### LAB [address] [address] Jack Mendoza M.D. [id number] TROPONIN T NG/L 8 ng/L Normal <=22 [facility] Comment on above: Performed By: #### 4 6608 #### LAB [address] [address] Jack Mendoza M.D. [id number] BASELINE TROPONIN T NG/L 8 ng/L Normal <=22 [facility] Comment on above: Performed By: #### 4 6608 #### LAB [address] [address] Jack Mendoza M.D. [id number] TROPONIN T INTERPRETATION Normal Normal [facility] Comment on above: Performed By: #### 4 6608 #### LAB [address] [address] Jack Mendoza M.D. [id number] Troponin x 2 (Now and Repeat in 2 hours)on 04-02-2025 Interp Troponin T Delta Change Delta troponin requires at least 2 hours between collections. [facility] Troponin T.cardiac High sensitivity method [Mass/Vol] 8 ng/L NINF - 22 ng/L [facility] Troponin T 8 ng/L NINF - 22 ng/L [facility] Troponin T Interpretation Normal [facility] XR CHEST PA/APon 04-02-2025 XR CHEST PA/AP Normal [facility] Comment on above: Order Comment: Injur y/Trauma or Illness?:Illness/OtherHow long have you had these symptoms (acute/chronic)?:AcuteReason for exam?:edemaHistory of cancer?:uSurgeries, chemotherapy, or radiation?:uType of Exam?:InitialAdditional signs and symptoms?:weakness XR Chest PA and Abdomen APon 04-02-2025 Low lung volumes with chronic interstitial changes. No consolidation or evidence congestive heart failure. Workstation ID: [id number] link bird EXAMINATION: XR CHEST PA/AP 04/02/2025 1:11 pm HISTORY: ORDERING SYSTEM PROVIDED HISTORY: Pedal edema, TECHNOLOGIST PROVIDED HISTORY: Illness/Other Reason for exam: edema Cancer History: u Surgery, RadiationHistory: u Encounter Type: Initial Additional signs and symptoms: weakness ORDERING SYSTEM PROVIDED DIAGNOSIS CODES: COMPARISON: 02/13/2025 FINDINGS: There is bibasilar atelectasis. Heart is upper limits normal size tortuosity thoracic aorta. There are low lung volumes. No consolidation or effusion is seen. No congestive heart failure. Degenerative changes spine shoulders. [facility] Carmen Garcia MD - 04/02/2025 EXAMINATION: XR CHEST PA/AP 04/02/2025 1:11 pm HISTORY: ORDERING SYSTEM PROVIDED HISTORY: Pedal edema, TECHNOLOGIST PROVIDED HISTORY: Illness/Other Reason for exam: edema Cancer History: u Surgery, RadiationHistory: u Encounter Type: Initial Additional signs and symptoms: weakness ORDERING SYSTEM PROVIDED DIAGNOSIS CODES: COMPARISON: 02/13/2025 FINDINGS: There is bibasilar atelectasis. Heart is upper limits normal size tortuosity thoracic aorta. There are low lung volumes. No consolidation or effusion is seen. No congestive heart failure. Degenerative changes spine shoulders. IMPRESSION: Low lung volumes with chronic interstitial changes. No consolidation or evidence congestive heart failure. Workstation ID: [id number] [facility] Radiology Study observation (narrative) [facility] XR Chest PA and Abdomen APOr dered By: Carmen Garcia on 04-02-2025 [facility] Work Phone: XR KNEE RIGHT 2 VIEWS (STAND NO)on 04-02-2025 XR KNEE RIGHT 2 VIEWS (STANDARD) Normal [facility] Comment on above: Order Comment: Injur y/Trauma or Illness?:Illness/OtherHow long have you had these symptoms (acute/chronic)?:AcuteReason for exam?:nki, weaknessHistory of cancer?:uSurgeries, chemotherapy, or radiation?:uType of Exam?:InitialAdditional signs and symptoms?:pain XR Knee - right 2 Viewson No acute process. Chronic changes including effusion. Workstation ID: [id number] [facility] RIS EXAMINATION: XR KNEE RIGHT 2 VIEWS (STANDARD) 04/02/2025 2:48 pm HISTORY: ORDERING SYSTEM PROVIDED HISTORY: Pain, no injury, TECHNOLOGIST PROVIDED HISTORY: Illness/Other Reason for exam: nki, weakness Cancer History: u Surgery, RadiationHistory: u Encounter Type: Initial Additional signs and symptoms: pain ORDERING SYSTEM PROVIDED DIAGNOSIS CODES: COMPARISON: 07/02/2024 FINDINGS: There chronic effusion appears osteopenia. There is been a knee replacement. There is an old ossification tip increased suprapatellar region. No fracture dislocation is seen. [facility] Carmen Garcia MD - 04/02/2025 EXAMINATION: XR KNEE RIGHT 2 VIEWS (STANDARD) 04/02/2025 2:48 pm HISTORY: ORDERING SYSTEM PROVIDED HISTORY: Pain, no injury, TECHNOLOGIST PROVIDED HISTORY: Illness/Other Reason for exam: nki, weakness Cancer History: u Surgery, RadiationHistory: u Encounter Type: Initial Additional signs and symptoms: pain ORDERING SYSTEM PROVIDED DIAGNOSIS CODES: COMPARISON: 07/02/2024 FINDINGS: There chronic effusion appears osteopenia. There is been a knee replacement. There is an old ossification tip increased suprapatellar region. No fracture dislocation is seen. IMPRESSION: No acute process. Chronic changes including effusion. Workstation ID: [id number] [facility] Radiology Study observation (narrative) [facility] BASIC METABOLIC PANELon 070 Anion gap [Moles/Vol] 12 mmol/L Normal 10-20 [facility] Comment on above: Order Comment: [facility] has implemented the eGFR calculation approach that does not have a coefficient for race that conforms to the NKF-ASN Task Force Recommendations. Performed By: #### 4 6124 ####[facility] [address], [place] [address] Jack Mendoza M.D. [id number] Calcium [Mass/Vol] 8.3 mg/dL Low 8.4-10.2 [facility] Comment on above: Order Comment: [facility] has implemented the eGFR calculation approach that does not have a coefficient for race that conforms to the NKF-ASN Task Force Recommendations. Performed By: #### 4 6124 #### LAB [address] [address] Jack Mendoza M.D. [id number] Chloride [Moles/Vol] 102 mmol/L Normal 98-108 [facility] Comment on above: Order Comment: [facility] has implemented the eGFR calculation approach that does not have a coefficient for race that conforms to the NKF-ASN Task Force Recommendations. Performed By: #### 4 6124 #### LAB [address] [address] Jack Mendoza M.D. [id number] Creatinine [Mass/Vol] 0.72 mg/dL Normal 0.50-1.30 [facility] Comment on above: Order Comment: [facility] has implemented the eGFR calculation approach that does not have a coefficient for race that conforms to the NKF-ASN Task Force Recommendations. Performed By: #### 4 6124 #### LAB [address] [address] Jack Mendoza M.D. [id number] EGFR 106 mL/min/1.73 m2 Normal >=60 [facility] Comment on above: Order Comment: [facility] has implemented the eGFR calculation approach that does not have a coefficient for race that conforms to the NKF-ASN Task Force Recommendations. Result Comment: Ashley mated GFR was calculated using the 2020 CKD-EPI creatinine equation. Performed By: #### 4 6124 #### LAB [address] [address] Jack Mendoza M.D. [id number] Glucose [Mass/Vol] 102 mg/dL High 65-99 [facility] Comment on above: Order Comment: [facility] has implemented the eGFR calculation approach that does not have a coefficient for race that conforms to the NKF-ASN Task Force Recommendations. Performed By: #### 4 6124 #### LAB [address] [address] Jack Mendoza M.D. [id number] HCO3 (Bld) [Moles/Vol] 25 mmol/L Normal 21-32 [facility] Comment on above: Order Comment: [facility] has implemented the eGFR calculation approach that does not have a coefficient for race that conforms to the NKF-ASN Task Force Recommendations. Performed By: #### 4 6124 #### LAB [address] [address] Jack Mendoza M.D. [id number] Potassium [Moles/Vol] 4.2 mmol/L Normal 3.5-5.1 [facility] Comment on above: Order Comment: [facility] has implemented the eGFR calculation approach that does not have a coefficient for race that conforms to the NKF-ASN Task Force Recommendations. Performed By: #### 4 6124 #### LAB [address] [address] Jack Mendoza M.D. [id number] Sodium [Moles/Vol] 135 mmol/L Normal 135-145 [facility] Comment on above: Order Comment: [facility] has implemented the eGFR calculation approach that does not have a coefficient for race that conforms to the NKF-ASN Task Force Recommendations. Performed By: #### 4 [id number] #### LAB [address] [address] Jack Mendoza M.D. [id number] Urea nitrogen [Mass/Vol] 13 mg/dL Normal 8-25 [facility] Comment on above: Order Comment: [facility] has implemented the eGFR calculation approach that does not have a coefficient for race that conforms to the NKF-ASN Task Force Recommendations. Performed By: #### 4 6119 #### LAB [address] [address] Jack Mendoza M.D. [id number] Urea nitrogen/Creatinine [Mass ratio] 18.1 mg/mg Normal 10.0-20.0 [facility] Comment on above: Order Comment: [facility] has implemented the eGFR calculation approach that does not have a coefficient for race that conforms to the NKF-ASN Task Force Recommendations. Performed By: #### 4 6124 #### LAB [address] [place] [address] Jack Mendoza M.D. [id number] CBC WITH AUTO DIFFERENTIALon 02-21-2025 AUTO NRBC 0.0 % [facility] Comment on above: Performed By: #### L [id number] #### LAB [address] [place] [address] Jack Mendoza M.D. [id number] AUTO NRBC ABS COUNT 0.00 K/mcL Normal 0.00-0.00 [facility] Comment on above: Performed By: #### L [id number] #### LAB [address] [place] [address] Jack Mendoza M.D. [id number] BASOPHILS ABSOLUTE COUNT 0.01 K/mcL Normal 0.00-0.30 [facility] Comment on above: Performed By: #### L [id number] #### LAB [address] [place] [address] Jack Mendoza M.D. [id number] Basophils/100 WBC (Bld) 0.3 % [facility] Comment on above: Performed By: #### L [id number] #### LAB [address] [place] [address] Jack Mendoza M.D. [id number] Eosinophils (Bld) [#/Vol] 0.09 10*3/uL Normal 0.00-0.50 [facility] Comment on above: Performed By: #### L [id number] #### LAB [address] [place] [address] Jack Mendoza M.D. [id number] Eosinophils/100 WBC (Bld) 2.9 % [facility] Comment on above: Performed By: #### L [id number] #### LAB [address] [address] Jack Mendoza M.D. [id number] Erythrocyte distribution width (RBC) [Ratio] 19.2 % High 11.6-14.8 [facility] Comment on above: Performed By: #### L [id number] #### LAB [address] [address] Jack Mendoza M.D. [id number] Hematocrit (Bld) [Volume fraction] 32.1 % Low 41.0-53.0 [facility] Comment on above: Performed By: #### L [id number] #### LAB [address] [address] Jack Mendoza M.D. [id number] Hemoglobin (Bld) [Mass/Vol] 9.8 g/dL Low 13.5-17.5 [facility] Comment on above: Performed By: #### L [id number] #### LAB [address] [address] Jack Mendoza M.D. [id number] IG ABSOLUTE 0.01 K/mcL Normal 0.00-0.30 [facility] Comment on above: Performed By: #### L [id number] #### LAB [address] [address] Jack Mendoza M.D. [id number] IG PERCENT 0.30 % Normal [facility] Comment on above: Result Comment: The IG parameter is the percentage of metamyelocytes, myelocytes and promyelocytes. An immature granulocyte count (IG) of 1% or more suggests the possibility of infection, an IG count of 3% is very likely related to an infection. Performed By: #### L [id number] #### LAB [address] [place] [address] Jack Mendoza M.D. [id number] Lymphocytes (Bld) [#/Vol] 0.78 10*3/uL Low 0.90-4.00 [facility] Comment on above: Performed By: #### L [id number] ####[facility] LAB [address] [address] Jack eMndoza M.D. [id number] Lymphocytes/100 WBC (Bld) 25.3 % Normal [facility] Comment on above: Performed By: #### L [id number] #### LAB [address] [address] Jack Mendoza M.D. [id number] MCH (RBC) [Entitic mass] 20.7 pg Low 26.0-34.0 [facility] Comment on above: Performed By: #### L [id number] #### LAB [address] [address] Jack Mendoza M.D. [id number] MCV (RBC) [Entitic vol] 67.9 fL Low 80.0-100.0 [facility] Comment on above: Performed By: #### L [id number] #### LAB [address] [address] Jack Mendoza M.D. [id number] MEAN CORPUSCULAR HEMOGLOBIN CONC 30.5 g/dL Low 31.0-37.0 [facility] Comment on above: Performed By: #### L [id number] #### LAB [address] [address] Jack Mendoza M.D. [id number] Monocytes (Bld) [#/Vol] 0.35 10*3/uL Normal 0.30-0.90 [facility] Comment on above: Performed By: #### L [id number] #### LAB [address] [address] Jack Mendoza M.D. [id number] Monocytes/100 WBC (Bld) 11.4 % Normal [facility] Comment on above: Performed By: #### L [id number] #### LAB [address] [address] Jack Mendoza M.D. [id number] NEUTROPHILS ABSOLUTE COUNT 1.84 K/mcL Normal 1.70-7.00 [facility] Comment on above: Performed By: #### L [id number] #### LAB [address] [address] Jack Mendoza M.D. [id number] Neutrophils/100 WBC (Bld) 59.8 % [facility] Comment on above: Result Comment: Tiffany pheral smear reviewed manually Performed By: #### L [id number] #### LAB [address] [address] Jack Mendoza M.D. [id number] Platelets (Bld) [#/Vol] 111 10*3/uL Low 150-400 [facility] Comment on above: Performed By: #### L [id number] #### LAB [address] [address] Jack Mendoza M.D. [id number] RBC (Bld) [#/Vol] 4.73 10*6/uL Normal 4.50-5.90 [facility] Comment on above: Performed By: #### L [id number] #### LAB [address] [address] Jack Mendoza M.D. [id number] WBC (Bld) [#/Vol] 3.08 10*3/uL Low 4.50-11.00 [facility] Comment on above: Performed By: #### L [id number] #### LAB [address] [address] Jack Mendoza M.D. [id number] Disch [place] 02-21-2025 Disch [facility] MAGNESIUM LEVELon 02-21-2025 Magnesium [Mass/Vol] 1.8 mg/dL Normal 1.6-2.4 [facility] Comment on above: Performed By: #### 4 6109 #### LAB [address] [address] Jack Mendoza M.D. [id number] MORPHOLOGYon 02-21-2025 OVAL SCAN Few [facility] Comment on above: Performed By: #### L [id number] #### LAB [address] [address] Jack Mendoza M.D. [id number] PLATELET ESTIMATE Decreased Abnormal Normal [facility] Comment on above: Performed By: #### L [id number] ####[facility] LAB [address] [id number] Jack Mendoza M.D. [id number] POLY SCAN Few Normal [facility] Comment on above: Performed By: #### L [id number] ####[facility] LAB [address] [address] Jack Mendoza M.D. [id number] RBC MORPH SCAN See Comment Normal [facility] Comment on above: Result Comment: RBC Indices confirmed with manual peripheral smear review. Performed By: #### L [id number] ####[facility] LAB [address] [address] Jack Mendoza M.D. [id number] TARGET CELL SCAN Few Normal [facility] Comment on above: Performed By: #### L [id number] ####[facility] LAB [address] [address] Jack Mendoza M.D. [id number] CONSULTon 02-19-2025 CONSULT Normal [facility] XR MANDIBLE LESS THAN 4 VIEW S (PANOREX)on 02-19-2025 XR MANDIBLE LESS THAN 4 VIEWS (PANOREX) [facility] Comment on above: Order Comment: Injur y/Trauma or Illness?:Illness/OtherHow long have you had these symptoms (acute/chronic)?:AcuteReason for exam?:Multiple dental caries and possible abscessHistory of cancer?:uSurgeries, chemotherapy, or radiation?:uType of Exam?:InitialAdditional signs and symptoms?:Multiple dental caries and possible abscess BASIC METABOLIC PANELon 3 Anion gap [Moles/Vol] 12 mmol/L Normal - [facility] Comment on above: Order Comment: [facility] has implemented the eGFR calculation approach that does not have a coefficient for race that conforms to the NKF-ASN Task Force Recommendations. Performed By: #### 4 6124 ####[facility] LAB [address] [address] Jack Mendoza M.D. [id number] Calcium [Mass/Vol] 8.9 mg/dL Normal 8.4-10.2 [facility] Comment on above: Order Comment: [facility] has implemented the eGFR calculation approach that does not have a coefficient for race that conforms to the NKF-ASN Task Force Recommendations. Performed By: #### 4 6124 #### LAB [address] [address] Jack Mendoza M.D. [id number] Chloride [Moles/Vol] 106 mmol/L Normal 98-108 [facility] Comment on above: Order Comment: [facility] has implemented the eGFR calculation approach that does not have a coefficient for race that conforms to the NKF-ASN Task Force Recommendations. Performed By: #### 4 6124 #### LAB [address] [address] Jack Mendoza M.D. [id number] Creatinine [Mass/Vol] 0.77 mg/dL Normal 0.50-1.30 [facility] Comment on above: Order Comment: [facility] has implemented the eGFR calculation approach that does not have a coefficient for race that conforms to the NKF-ASN Task Force Recommendations. Performed By: #### 4 6124 #### LAB [address] [address] Jack Mendoza M.D. [id number] EGFR 104 mL/min/1.73 m2 Normal >=60 [facility] Comment on above: Order Comment: [facility] has implemented the eGFR calculation approach that does not have a coefficient for race that conforms to the NKF-ASN Task Force Recommendations. Result Comment: Ashley mated GFR was calculated using the 2020 CKD-EPI creatinine equation. Performed By: #### 4 6124 #### LAB [address] [address] Jack Mendoza M.D. [id number] Glucose [Mass/Vol] 95 mg/dL Normal 65-99 [facility] Comment on above: Order Comment: [facility] has implemented the eGFR calculation approach that does not have a coefficient for race that conforms to the NKF-ASN Task Force Recommendations. Performed By: #### 4 6124 #### LAB [address] [address] Jack Mendoza M.D. [id number] HCO3 (Bld) [Moles/Vol] 25 mmol/L Normal 21-32 [facility] Comment on above: Order Comment: [facility] has implemented the eGFR calculation approach that does not have a coefficient for race that conforms to the NKF-ASN Task Force Recommendations. Performed By: #### 4 6124 #### LAB [address] [address] Jack Mendoza M.D. [id number] Potassium [Moles/Vol] 3.9 mmol/L Normal 3.5-5.1 [facility] Comment on above: Order Comment: [facility] has implemented the eGFR calculation approach that does not have a coefficient for race that conforms to the NKF-ASN Task Force Recommendations. Performed By: #### 4 6124 #### LAB [address] [address] Jack Mendoza M.D. [id number] Sodium [Moles/Vol] 139 mmol/L Normal 135-145 [facility] Comment on above: Order Comment: [facility] has implemented the eGFR calculation approach that does not have a coefficient for race that conforms to the NKF-ASN Task Force Recommendations. Performed By: #### 4 6124 #### LAB [address] [address] Jack Mendoza M.D. [id number] Urea nitrogen [Mass/Vol] 10 mg/dL Normal 8-25 [facility] Comment on above: Order Comment: [facility] has implemented the eGFR calculation approach that does not have a coefficient for race that conforms to the NKF-ASN Task Force Recommendations. Performed By: #### 4 6124 #### LAB [address] [address] Jack Mendoza M.D. [id number] Urea nitrogen/Creatinine [Mass ratio] 13.0 mg/mg Normal 10.0-20.0 [facility] Comment on above: Order Comment: [facility] has implemented the eGFR calculation approach that does not have a coefficient for race that conforms to the NKF-ASN Task Force Recommendations. Performed By: #### 4 6124 #### LAB [address] [address] Jack Mendoza M.D. [id number] CBC WITH AUTO DIFFERENTIALon 02-18-2025 AUTO NRBC 0.0 % [facility] Comment on above: Performed By: #### L [id number] ####[facility] LAB [address] [address] Jack Mendoza M.D. [id number] AUTO NRBC ABS COUNT 0.00 K/mcL Normal 0.00-0.00 [facility] Comment on above: Performed By: #### L [id number] #### LAB [address] [place] [address] Jack Mendoza M.D. [id number] BASOPHILS ABSOLUTE COUNT 0.00 K/mcL Normal 0.00-0.30 [facility] Comment on above: Performed By: #### L [id number] #### LAB [address] [place] [address] Jack Mendoza M.D. [id number] Basophils/100 WBC (Bld) 0.0 % [facility] Comment on above: Performed By: #### L [id number] #### LAB [address] [place] [address] Jack Mendoza M.D. [id number] Eosinophils (Bld) [#/Vol] 0.09 10*3/uL Normal 0.00-0.50 [facility] Comment on above: Performed By: #### L [id number] #### LAB [address] [place] [address] Jack Mendoza M.D. [id number] Eosinophils/100 WBC (Bld) 3.4 % [facility] Comment on above: Performed By: #### L [id number] #### LAB [address] [place] [address] Jack Mendoza M.D. [id number] Erythrocyte distribution width (RBC) [Ratio] 19.2 % High 11.6-14.8 [facility] Comment on above: Performed By: #### L [id number] #### LAB [address] [address] Jack Mendoza M.D. [id number] Hematocrit (Bld) [Volume fraction] 32.4 % Low 41.0-53.0 [facility] Comment on above: Performed By: #### L [id number] #### LAB [address] [address] Jack Mendoza M.D. [id number] Hemoglobin (Bld) [Mass/Vol] 9.9 g/dL Low 13.5-17.5 [facility] Comment on above: Performed By: #### L [id number] #### LAB [address] [address] Jack Mendoza M.D. [id number] IG ABSOLUTE 0.01 K/mcL Normal 0.00-0.30 [facility] Comment on above: Performed By: #### L [id number] #### LAB [address] [address] Jack Mendoza M.D. [id number] IG PERCENT 0.40 % Normal [facility] Comment on above: Result Comment: The IG parameter is the percentage of metamyelocytes, myelocytes and promyelocytes. An immature granulocyte count (IG) of 1% or more suggests the possibility of infection, an IG count of 3% is very likely related to an infection. Performed By: #### L [id number] #### LAB [address] [address] Jack Mendoza M.D. [id number] Lymphocytes (Bld) [#/Vol] 0.67 10*3/uL Low 0.90-4.00 [facility] Comment on above: Performed By: #### L [id number] #### LAB [address] [place] [address] Jack Mendoza M.D. [id number] Lymphocytes/100 WBC (Bld) 25.5 % Normal [facility] Comment on above: Performed By: #### L [id number] #### LAB [address] [address] Jack Mendoza M.D. [id number] MCH (RBC) [Entitic mass] 20.6 pg Low 26.0-34.0 [facility] Comment on above: Performed By: #### L [id number] #### LAB [address] [address] Jack Mendoza M.D. [id number] MCV (RBC) [Entitic vol] 67.4 fL Low 80.0-100.0 [facility] Comment on above: Performed By: #### L [id number] #### LAB [address] [address] Jack Mendoza M.D. [id number] MEAN CORPUSCULAR HEMOGLOBIN CONC 30.6 g/dL Low 31.0-37.0 [facility] Comment on above: Performed By: #### L [id number] #### LAB [address] [address] Jack Mendoza M.D. [id number] Monocytes (Bld) [#/Vol] 0.21 10*3/uL Low 0.30-0.90 [facility] Comment on above: Performed By: #### L [id number] #### LAB [address] [place] [address] Jack Mendoza M.D. [id number] Monocytes/100 WBC (Bld) 8.0 % Normal [facility] Comment on above: Performed By: #### L [id number] #### LAB [address] [place] [address] Jack Mendoza M.D. [id number] NEUTROPHILS ABSOLUTE COUNT 1.65 K/mcL Low 1.70-7.00 [facility] Comment on above: Performed By: #### L [id number] #### LAB [address] [place] [address] Jack Mendoza M.D. [id number] Neutrophils/100 WBC (Bld) 62.7 % Normal [facility] Comment on above: Performed By: #### L [id number] ####[facility] LAB [address] [address] Jack Mendoza M.D. [id number] Platelets (Bld) [#/Vol] 82 10*3/uL Low 150-400 [facility] Comment on above: Performed By: #### L [id number] #### LAB [address] [address] Jack Mendoza M.D. [id number] RBC (Bld) [#/Vol] 4.81 10*6/uL Normal 4.50-5.90 [facility] Comment on above: Performed By: #### L [id number] ####[facility] LAB [address] [address] Jack Mendoza M.D. [id number] WBC (Bld) [#/Vol] 2.63 10*3/uL Low 4.50-11.00 [facility] Comment on above: Performed By: #### L [id number] ####[facility] LAB [address] [address] Jack Mendoza M.D. [id number] CONSULTon 02-18-2025 CONSULT Normal [facility] MAGNESIUM LEVELon 02-18-2025 Magnesium [Mass/Vol] 1.6 mg/dL Normal 1.6-2.4 [facility] Comment on above: Performed By: #### 4 6109 ####[facility] LAB [address] [address] Jack Mendoza M.D. [id number] [facility] Glucose [Mass/Vol] 102 mg/dL High 65-99 [facility] Comment on above: Performed By: #### 4 6932 ####J[facility] LAB [address] [address] Jack Mendoza M.D. [id number] BASIC METABOLIC PANELon 01-21 Anion gap [Moles/Vol] 14 mmol/L Normal 10-20 [facility] Comment on above: Order Comment: [facility] has implemented the eGFR calculation approach that does not have a coefficient for race that conforms to the NKF-ASN Task Force Recommendations. Performed By: #### 4 6124 #### LAB [address] [place], [place] [address] Jack Mendoza M.D. [id number] Calcium [Mass/Vol] 8.5 mg/dL Normal 8.4-10.2 [facility] Comment on above: Order Comment: [facility] has implemented the eGFR calculation approach that does not have a coefficient for race that conforms to the NKF-ASN Task Force Recommendations. Performed By: #### 4 6124 #### LAB [address] [address] Jack Mendoza M.D. [id number] Chloride [Moles/Vol] 105 mmol/L Normal 98-108 [facility] Comment on above: Order Comment: [facility] has implemented the eGFR calculation approach that does not have a coefficient for race that conforms to the NKF-ASN Task Force Recommendations. Performed By: #### 4 6124 #### LAB [address] [address] Jack Mendoza M.D. [id number] Creatinine [Mass/Vol] 0.93 mg/dL Normal 0.50-1.30 [facility] Comment on above: Order Comment: [facility] has implemented the eGFR calculation approach that does not have a coefficient for race that conforms to the NKF-ASN Task Force Recommendations. Performed By: #### 4 6110 #### LAB [address] [place], [place] [address] Jack Mendoza M.D. [id number] EGFR 95 mL/min/1.73 m2 Normal >=60 [facility] Comment on above: Order Comment: [facility] has implemented the eGFR calculation approach that does not have a coefficient for race that conforms to the NKF-ASN Task Force Recommendations. Result Comment: Ashley mated GFR was calculated using the 2020 CKD-EPI creatinine equation. Performed By: #### 4 6124 ####[facility] LAB [address] [address] Jack Mendoza M.D. [id number] Glucose [Mass/Vol] 131 mg/dL High 65-99 [facility] Comment on above: Order Comment: [facility] has implemented the eGFR calculation approach that does not have a coefficient for race that conforms to the NKF-ASN Task Force Recommendations. Performed By: #### 4 6124 #### LAB [address] [address] Jack Mendoza M.D. [id number] HCO3 (Bld) [Moles/Vol] 25 mmol/L Normal 21-32 [facility] Comment on above: Order Comment: [facility] has implemented the eGFR calculation approach that does not have a coefficient for race that conforms to the NKF-ASN Task Force Recommendations. Performed By: #### 4 6124 #### LAB [address] [address] Jack Mendoza M.D. [id number] Potassium [Moles/Vol] 3.8 mmol/L Normal 3.5-5.1 [facility] Comment on above: Order Comment: [facility] has implemented the eGFR calculation approach that does not have a coefficient for race that conforms to the NKF-ASN Task Force Recommendations. Performed By: #### 4 6124 #### LAB [address] [address] Jack Mendoza M.D. [id number] Sodium [Moles/Vol] 140 mmol/L Normal 135-145 [facility] Comment on above: Order Comment: [facility] has implemented the eGFR calculation approach that does not have a coefficient for race that conforms to the NKF-ASN Task Force Recommendations. Performed By: #### 4 6124 ####[facility] LAB [address] [address] Jack Mendoza M.D. [id number] Urea nitrogen [Mass/Vol] 14 mg/dL Normal 8-25 [facility] Comment on above: Order Comment: [facility] has implemented the eGFR calculation approach that does not have a coefficient for race that conforms to the NKF-ASN Task Force Recommendations. Performed By: #### 4 6124 #### LAB [address] [address] Jack Mendoza M.D. [id number] Urea nitrogen/Creatinine [Mass ratio] 15.1 mg/mg Normal 10.0-20.0 [facility] Comment on above: Order Comment: [facility] has implemented the eGFR calculation approach that does not have a coefficient for race that conforms to the NKF-ASN Task Force Recommendations. Performed By: #### 4 6124 #### LAB [address] [address] Jack Mendoza M.D. [id number] CBC WITH AUTO DIFFERENTIALon 02-17-2025 AUTO NRBC 0.0 % Normal [facility] Comment on above: Performed By: #### L [id number] ####[facility] LAB [address] [address] Jack Mendoza M.D. [id number] AUTO NRBC ABS COUNT 0.00 K/mcL Normal 0.00-0.00 [facility] Comment on above: Performed By: #### L [id number] ####[facility] LAB [address] [address] Jack Mendoza M.D. [id number] Erythrocyte distribution width (RBC) [Ratio] 19.2 % High 11.6-14.8 [facility] Comment on above: Performed By: #### L [id number] ####[facility] LAB [address] [address] Jack Mendoza M.D. [id number] Hematocrit (Bld) [Volume fraction] 33.2 % Low 41.0-53.0 [facility] Comment on above: Performed By: #### L [id number] ####[facility] LAB [address] [address] Jack Mendoza M.D. [id number] Hemoglobin (Bld) [Mass/Vol] 10.1 g/dL Low 13.5-17.5 [facility] Comment on above: Performed By: #### L [id number] #### LAB [address] [address] Jack Mendoza M.D. [id number] MCH (RBC) [Entitic mass] 20.5 pg Low 26.0-34.0 [facility] Comment on above: Performed By: #### L [id number] #### LAB [address] [address] Jack Mendoza M.D. [id number] MCV (RBC) [Entitic vol] 67.5 fL Low 80.0-100.0 [facility] Comment on above: Performed By: #### L [id number] #### LAB [address] [address] Jack Mendoza M.D. [id number] MEAN CORPUSCULAR HEMOGLOBIN CONC 30.4 g/dL Low 31.0-37.0 [facility] Comment on above: Performed By: #### L [id number] #### LAB [address] [address] Jack Mendoza M.D. [id number] Platelet mean volume (Bld) [Entitic vol] 10.0 fL Normal 9.4-12.4 [facility] Comment on above: Performed By: #### L [id number] #### LAB [address] [address] Jack Mendoza M.D. [id number] Platelets (Bld) [#/Vol] 82 10*3/uL Low 150-400 [facility] Comment on above: Performed By: #### L [id number] ####[facility] LAB [address] [address] Jack Mnedoza M.D. [id number] RBC (Bld) [#/Vol] 4.92 10*6/uL Normal 4.50-5.90 [facility] Comment on above: Performed By: #### L [id number] ####[facility] LAB [address] [place] [address] Jack Mendoza M.D. [id number] WBC (Bld) [#/Vol] 2.50 10*3/uL Low 4.50-11.00 [facility] Comment on above: Performed By: #### L [id number] #### LAB [address] [address] Jack Mendoza M.D. [id number] CONSULTon 02-17-2025 CONSULT Normal [facility] CRP, INFLAMMATIONon 02-18-20 25 CRP [Mass/Vol] 23.7 mg/L High 0.0-10.0 [facility] Comment on above: Performed By: #### 4 5334 #### LAB [address] [address] Jack Mendoza M.D. [id number] MAGNESIUM LEVELon 02-17-2025 Magnesium [Mass/Vol] 1.6 mg/dL Normal 1.6-2.4 [facility] Comment on above: Performed By: #### 4 6109 #### LAB [address] [address] Jack Mendoza M.D. [id number] MANUAL DIFFERENTIALon 2024 BASOPHILS - ABS (DIFF) 0.00 K/mcL Normal 0.00-0.30 [facility] Comment on above: Performed By: #### 4 5456 #### LAB [address] [address] Jack Mendoza M.D. [id number] BASOPHILS - REL (DIFF) 0.0 % Normal [facility] Comment on above: Performed By: #### 4 5456 #### LAB [address] [address] Jack Mendoza M.D. [id number] EOSINOPHILS - ABS (DIFF) 0.08 K/mcL Normal 0.00-0.50 [facility] Comment on above: Performed By: #### 4 5456 #### LAB [address] [address] Jack Mendoza M.D. [id number] EOSINOPHILS - REL (DIFF) 3.0 % Normal [facility] Comment on above: Performed By: #### 4 5456 #### LAB [address] [address] Jack Mendoza M.D. [id number] LYMPHOCYTES - ABS (DIFF) 0.70 K/mcL Low 0.90-4.00 [facility] Comment on above: Performed By: #### 4 5456 #### LAB [address] [address] Jack Mendoza M.D. [id number] LYMPHOCYTES - REL (DIFF) 28.0 % [facility] Comment on above: Performed By: #### 4 5456 #### LAB [address] [address] Jack Mendoza M.D. [id number] MONOCYTES - ABS (DIFF) 0.10 K/mcL Low 0.30-0.90 [facility] Comment on above: Performed By: #### 4 5456 #### LAB [address] [address] Jack Mendoza M.D. [id number] MONOCYTES - REL (DIFF) 4.0 % [facility] Comment on above: Performed By: #### 4 5456 #### LAB [address] [address] Jack Mendoza M.D. [id number] NEUTROPHILS - ABS (DIFF) 1.63 K/mcL Low 1.70-7.00 [facility] Comment on above: Performed By: #### 4 5456 #### LAB [address] [address] Jack Mendoza M.D. [id number] NEUTROPHILS - REL (DIFF) 65.0 % [facility] Comment on above: Performed By: #### 4 5456 #### LAB [address] [address] Jack Mendoza M.D. [id number] MORPHOLOGYon 02-17-2025 OVAL SCAN Moderate [facility] Comment on above: Performed By: #### L [id number] #### LAB [address] [address] Jack Mendoza M.D. [id number] PLATELET ESTIMATE Decreased Abnormal Normal [facility] Comment on above: Performed By: #### L [id number] ####[facility] LAB [address] [id number] Jack Mendoza M.D. [id number] POLY SCAN Few [facility] Comment on above: Performed By: #### L AB295 ####[facility] LAB [address] [address] Jack Mendoza M.D. [id number] RBC MORPH SCAN See Comment [facility] Comment on above: Result Comment: RBC Indices confirmed with manual peripheral smear review. Performed By: #### L AB295 ####[facility] LAB [address] [id number] Jack Mendoza M.D. [id number] TARGET CELL SCAN Moderate Normal [facility] Comment on above: Performed By: #### L [id number] ####[facility] LAB [address] [address] Jack Mendoza M.D. [id number] PROCALCITONINon 02-17-2025 PROCALCITONIN 0.16 ng/ml Normal <0.50 [facility] Comment on above: Order Comment: Resul ts <0.50 ng/ml represent a low risk of severe sepsis and/or septic shock. Performed By: #### 4 7652 ####[facility] [address] [place] [address] Venancio Richardson M.D. [id number] SEDIMENTATION RATEon 025 SEDIMENTATION RATE, ERYTHROCYTE 113 mm/hr High 0-20 [facility] Comment on above: Performed By: #### 4 6477 ####[facility] LAB [address] [address] Jack Mendoza M.D. [id number] XR KNEE LEFT 2 VIEWS ([address] RD)on 02-17-2025 XR KNEE LEFT 2 VIEWS (STANDARD) [facility] Comment on above: Order Comment: Injur y/Trauma or Illness?:Illness/OtherHow long have you had these symptoms (acute/chronic)?:ChronicReason for exam?:Left knee pain and swellingHistory of cancer?:uSurgeries, chemotherapy, or radiation?:uType of Exam?:InitialAdditional signs and symptoms?:NKI BASIC METABOLIC PANELon 01-21 Anion gap [Moles/Vol] 13 mmol/L Normal 10-20 [facility] Comment on above: Order Comment: [facility] has implemented the eGFR calculation approach that does not have a coefficient for race that conforms to the NKF-ASN Task Force Recommendations. Performed By: #### 4 6124 #### LAB [address], [place] [address] Jack Mendoza M.D. [id number] Calcium [Mass/Vol] 8.7 mg/dL Normal 8.4-10.2 [facility] Comment on above: Order Comment: [facility] has implemented the eGFR calculation approach that does not have a coefficient for race that conforms to the NKF-ASN Task Force Recommendations. Performed By: #### 4 6124 #### LAB [address] [address] Jack Mendoza M.D. [id number] Chloride [Moles/Vol] 105 mmol/L Normal 98-108 [facility] Comment on above: Order Comment: [facility] has implemented the eGFR calculation approach that does not have a coefficient for race that conforms to the NKF-ASN Task Force Recommendations. Performed By: #### 4 6124 #### LAB [address] [address] Jack Mendoza M.D. [id number] Creatinine [Mass/Vol] 0.94 mg/dL Normal 0.50-1.30 [facility] Comment on above: Order Comment: [facility] has implemented the eGFR calculation approach that does not have a coefficient for race that conforms to the NKF-ASN Task Force Recommendations. Performed By: #### 4 6124 #### LAB [address] [address] Jack Mendoza M.D. [id number] EGFR 94 mL/min/1.73 m2 Normal >=60 [facility] Comment on above: Order Comment: [facility] has implemented the eGFR calculation approach that does not have a coefficient for race that conforms to the NKF-ASN Task Force Recommendations. Result Comment: Ashley mated GFR was calculated using the 2020 CKD-EPI creatinine equation. Performed By: #### 4 6123 #### LAB [address] [address] Jack Mendoza M.D. [id number] Glucose [Mass/Vol] 110 mg/dL High 65-99 [facility] Comment on above: Order Comment: [facility] has implemented the eGFR calculation approach that does not have a coefficient for race that conforms to the NKF-ASN Task Force Recommendations. Performed By: #### 4 6124 #### LAB [address] [address] Jack Mendoza M.D. [id number] HCO3 (Bld) [Moles/Vol] 26 mmol/L Normal 21-32 [facility] Comment on above: Order Comment: [facility] has implemented the eGFR calculation approach that does not have a coefficient for race that conforms to the NKF-ASN Task Force Recommendations. Performed By: #### 4 6139 #### LAB [address] [address] Jack Mendoza M.D. [id number] Potassium [Moles/Vol] 4.0 mmol/L Normal 3.5-5.1 [facility] Comment on above: Order Comment: [facility] has implemented the eGFR calculation approach that does not have a coefficient for race that conforms to the NKF-ASN Task Force Recommendations. Performed By: #### 4 6165 #### LAB [address] [address] Jack Mendoza M.D. [id number] Sodium [Moles/Vol] 140 mmol/L Normal 135-145 [facility] Comment on above: Order Comment: [facility] has implemented the eGFR calculation approach that does not have a coefficient for race that conforms to the NKF-ASN Task Force Recommendations. Performed By: #### 4 6170 #### LAB [address] [address] Jack Mendoza M.D. [id number] Urea nitrogen [Mass/Vol] 17 mg/dL Normal 8-25 [facility] Comment on above: Order Comment: [facility] has implemented the eGFR calculation approach that does not have a coefficient for race that conforms to the NKF-ASN Task Force Recommendations. Performed By: #### 4 6124 #### LAB [address] [address] Jack Mendoza M.D. [id number] Urea nitrogen/Creatinine [Mass ratio] 18.1 mg/mg Normal 10.0-20.0 [facility] Comment on above: Order Comment: [facility] has implemented the eGFR calculation approach that does not have a coefficient for race that conforms to the NKF-ASN Task Force Recommendations. Performed By: #### 4 6124 #### LAB [address] [address] Jack Mendoza M.D. [id number] CBC WITH AUTO DIFFERENTIALon 02-16-2025 AUTO NRBC 0.0 % [facility] Comment on above: Performed By: #### L [id number] ####[facility] LAB [address] [address] Jack Mendoza M.D. [id number] AUTO NRBC ABS COUNT 0.00 K/mcL Normal 0.00-0.00 [facility] Comment on above: Performed By: #### L [id number] ####[facility] LAB [address] [address] Jack Mendoza M.D. [id number] BASOPHILS ABSOLUTE COUNT 0.01 K/mcL Normal 0.00-0.30 [facility] Comment on above: Performed By: #### L [id number] ####[facility] LAB [address] [address] Jack Mendoza M.D. [id number] Basophils/100 WBC (Bld) 0.4 % [facility] Comment on above: Performed By: #### L [id number] #### LAB [address] [address] Jack Mendoza M.D. [id number] Eosinophils (Bld) [#/Vol] 0.08 10*3/uL Normal 0.00-0.50 [facility] Comment on above: Performed By: #### L [id number] #### LAB [address] [address] Jack Mendoza M.D. [id number] Eosinophils/100 WBC (Bld) 3.4 % Normal [facility] Comment on above: Performed By: #### L [id number] #### LAB [address] [address] Jack Mendoza M.D. [id number] Erythrocyte distribution width (RBC) [Ratio] 19.5 % High 11.6-14.8 [facility] Comment on above: Performed By: #### L [id number] #### LAB [address] [address] Jack Mendoza M.D. [id number] Hematocrit (Bld) [Volume fraction] 34.2 % Low 41.0-53.0 [facility] Comment on above: Performed By: #### L [id number] #### LAB [address] [place] [address] Jack Mendoza M.D. [id number] Hemoglobin (Bld) [Mass/Vol] 10.3 g/dL Low 13.5-17.5 [facility] Comment on above: Performed By: #### L [id number] #### LAB [address] [place] [address] Jack Mendoza M.D. [id number] IG ABSOLUTE 0.01 K/mcL Normal 0.00-0.30 [facility] Comment on above: Performed By: #### L [id number] #### LAB [address] [place] [address] Jack Mendoza M.D. [id number] IG PERCENT 0.40 % [facility] Comment on above: Result Comment: The IG parameter is the percentage of metamyelocytes, myelocytes and promyelocytes. An immature granulocyte count (IG) of 1% or more suggests the possibility of infection, an IG count of 3% is very likely related to an infection. Performed By: #### L [id number] #### LAB [address] [address] Jack Mendoza M.D. [id number] Lymphocytes (Bld) [#/Vol] 0.80 10*3/uL Low 0.90-4.00 [facility] Comment on above: Performed By: #### L [id number] #### LAB [address] [address] Jack Mendoza M.D. [id number] Lymphocytes/100 WBC (Bld) 34.3 % Normal [facility] Comment on above: Performed By: #### L [id number] #### LAB [address] [address] Jack Mendoza M.D. [id number] MCH (RBC) [Entitic mass] 20.4 pg Low 26.0-34.0 [facility] Comment on above: Performed By: #### L [id number] #### LAB [address] [address] Jack Mendoza M.D. [id number] MCV (RBC) [Entitic vol] 67.7 fL Low 80.0-100.0 [facility] Comment on above: Performed By: #### L [id number] #### LAB [address] [address] Jack Mendoza M.D. [id number] MEAN CORPUSCULAR HEMOGLOBIN CONC 30.1 g/dL Low 31.0-37.0 [facility] Comment on above: Performed By: #### L [id number] #### LAB [address] [place] [address] Jack Mendoza M.D. [id number] Monocytes (Bld) [#/Vol] 0.18 10*3/uL Low 0.30-0.90 [facility] Comment on above: Performed By: #### L [id number] #### LAB [address] [address] Jack Mendoza M.D. [id number] Monocytes/100 WBC (Bld) 7.7 % Normal [facility] Comment on above: Performed By: #### L [id number] #### LAB [address] [address] Jack Mendoza M.D. [id number] NEUTROPHILS ABSOLUTE COUNT 1.25 K/mcL Low 1.70-7.00 [facility] Comment on above: Performed By: #### L [id number] #### LAB [address] [address] Jack Mendoza M.D. [id number] Neutrophils/100 WBC (Bld) 53.8 % Normal [facility] Comment on above: Performed By: #### L [id number] #### LAB [address] [address] Jack Mendoza M.D. [id number] Platelets (Bld) [#/Vol] 88 10*3/uL Low 150-400 [facility] Comment on above: Performed By: #### L [id number] #### LAB [address] [address] Jack Mendoza M.D. [id number] RBC (Bld) [#/Vol] 5.05 10*6/uL Normal 4.50-5.90 [facility] Comment on above: Performed By: #### L [id number] #### LAB [address] [address] Jack Mendoza M.D. [id number] WBC (Bld) [#/Vol] 2.33 10*3/uL Low 4.50-11.00 [facility] Comment on above: Performed By: #### L [id number] #### LAB [address] [address] Jack Mendoza M.D. [id number] MAGNESIUM LEVELon 02-16-2025 Magnesium [Mass/Vol] 1.9 mg/dL Normal 1.6-2.4 [facility] Comment on above: Performed By: #### 4 6109 #### LAB [address] [place], [place] [address] Jack Mendoza M.D. [id number] BASIC METABOLIC PANELon - Anion gap [Moles/Vol] 12 mmol/L Normal 10-20 [facility] Comment on above: Order Comment: [facility] has implemented the eGFR calculation approach that does not have a coefficient for race that conforms to the NKF-ASN Task Force Recommendations. Performed By: #### 4 6124 #### LAB [address], [place] [address] Jack Mendoza M.D. [id number] Calcium [Mass/Vol] 8.7 mg/dL Normal 8.4-10.2 [facility] Comment on above: Order Comment: [facility] has implemented the eGFR calculation approach that does not have a coefficient for race that conforms to the NKF-ASN Task Force Recommendations. Performed By: #### 4 6124 #### LAB [address] [place], [place] [address] Jack Mendoza M.D. [id number] Chloride [Moles/Vol] 113 mmol/L High 98-108 [facility] Comment on above: Order Comment: [facility] has implemented the eGFR calculation approach that does not have a coefficient for race that conforms to the NKF-ASN Task Force Recommendations. Performed By: #### 4 6124 #### LAB [address] [place], [place] [address] Jack Mendoza M.D. [id number] Creatinine [Mass/Vol] 1.08 mg/dL Normal 0.50-1.30 [facility] Comment on above: Order Comment: [facility] has implemented the eGFR calculation approach that does not have a coefficient for race that conforms to the NKF-ASN Task Force Recommendations. Performed By: #### 4 6124 #### LAB [address], [place] [address] Jack Mendoza M.D. [id number] EGFR 80 mL/min/1.73 m2 Normal >=60 [facility] Comment on above: Order Comment: [facility] has implemented the eGFR calculation approach that does not have a coefficient for race that conforms to the NKF-ASN Task Force Recommendations. Result Comment: Ashley mated GFR was calculated using the 2020 CKD-EPI creatinine equation. Performed By: #### 4 6124 #### LAB [address] [address] Jack Mendoza M.D. [id number] Glucose [Mass/Vol] 117 mg/dL High 65-99 [facility] Comment on above: Order Comment: [facility] has implemented the eGFR calculation approach that does not have a coefficient for race that conforms to the NKF-ASN Task Force Recommendations. Performed By: #### 4 6124 #### LAB [address] [address] Jack Mendoza M.D. [id number] HCO3 (Bld) [Moles/Vol] 28 mmol/L Normal 21-32 [facility] Comment on above: Order Comment: [facility] has implemented the eGFR calculation approach that does not have a coefficient for race that conforms to the NKF-ASN Task Force Recommendations. Performed By: #### 4 6124 #### LAB [address] [address] Jack Mendoza M.D. [id number] Potassium [Moles/Vol] 4.4 mmol/L Normal 3.5-5.1 [facility] Comment on above: Order Comment: [facility] has implemented the eGFR calculation approach that does not have a coefficient for race that conforms to the NKF-ASN Task Force Recommendations. Performed By: #### 4 6124 #### LAB [address] [address] Jack Mendoza M.D. [id number] Sodium [Moles/Vol] 149 mmol/L High 135-145 [facility] Comment on above: Order Comment: [facility] has implemented the eGFR calculation approach that does not have a coefficient for race that conforms to the NKF-ASN Task Force Recommendations. Performed By: #### 4 6124 #### LAB [address] [address] Jack Mendoza M.D. [id number] Urea nitrogen [Mass/Vol] 20 mg/dL Normal 8-25 [facility] Comment on above: Order Comment: [facility] has implemented the eGFR calculation approach that does not have a coefficient for race that conforms to the NKF-ASN Task Force Recommendations. Performed By: #### 4 6124 #### LAB [address] [address] Jack Mendoza M.D. [id number] Urea nitrogen/Creatinine [Mass ratio] 18.5 mg/mg Normal 10.0-20.0 [facility] Comment on above: Order Comment: [facility] has implemented the eGFR calculation approach that does not have a coefficient for race that conforms to the NKF-ASN Task Force Recommendations. Performed By: #### 4 6124 #### LAB [address] [address] Jack Mendoza M.D. [id number] CBC WITH AUTO DIFFERENTIALon 02-15-2025 AUTO NRBC 0.0 % [facility] Comment on above: Performed By: #### L [id number] ####[facility] LAB [address] [address] Jack Mendoza M.D. [id number] AUTO NRBC ABS COUNT 0.00 K/mcL Normal 0.00-0.00 [facility] Comment on above: Performed By: #### L [id number] ####[facility] LAB [address] [address] Jack Mendoza M.D. [id number] BASOPHILS ABSOLUTE COUNT 0.01 K/mcL Normal 0.00-0.30 [facility] Comment on above: Performed By: #### L [id number] ####[facility] LAB [address] [address] Jack Mendoza M.D. [id number] Basophils/100 WBC (Bld) 0.5 % [facility] Comment on above: Performed By: #### L [id number] #### LAB [address] [address] Jack Mendoza M.D. [id number] Eosinophils (Bld) [#/Vol] 0.08 10*3/uL Normal 0.00-0.50 [facility] Comment on above: Performed By: #### L [id number] #### LAB [address] [address] Jack Mendoza M.D. [id number] Eosinophils/100 WBC (Bld) 3.6 % Normal [facility] Comment on above: Performed By: #### L [id number] #### LAB [address] [address] Jack Mendoza M.D. [id number] Erythrocyte distribution width (RBC) [Ratio] 19.6 % High 11.6-14.8 [facility] Comment on above: Performed By: #### L [id number] #### LAB [address] [address] Jack Mendoza M.D. [id number] Hematocrit (Bld) [Volume fraction] 31.8 % Low 41.0-53.0 [facility] Comment on above: Performed By: #### L [id number] #### LAB [address] [address] Jack Mendoza M.D. [id number] Hemoglobin (Bld) [Mass/Vol] 9.5 g/dL Low 13.5-17.5 [facility] Comment on above: Performed By: #### L [id number] #### LAB [address] [place] [address] Jack Mendoza M.D. [id number] IG ABSOLUTE 0.02 K/mcL Normal 0.00-0.30 [facility] Comment on above: Performed By: #### L [id number] #### LAB [address] [place] [address] Jack Mendoza M.D. [id number] IG PERCENT 0.90 % Normal [facility] Comment on above: Result Comment: The IG parameter is the percentage of metamyelocytes, myelocytes and promyelocytes. An immature granulocyte count (IG) of 1% or more suggests the possibility of infection, an IG count of 3% is very likely related to an infection. Performed By: #### L [id number] #### LAB [address] [address] Jack Mendoza M.D. [id number] Lymphocytes (Bld) [#/Vol] 0.72 10*3/uL Low 0.90-4.00 [facility] Comment on above: Performed By: #### L [id number] #### LAB [address] [address] Jack Mendoza M.D. [id number] Lymphocytes/100 WBC (Bld) 32.6 % Normal [facility] Comment on above: Performed By: #### L [id number] #### LAB [address] [address] Jack Mendoza M.D. [id number] MCH (RBC) [Entitic mass] 20.2 pg Low 26.0-34.0 [facility] Comment on above: Performed By: #### L [id number] #### LAB [address] [place] [address] Jack Mendoza M.D. [id number] MCV (RBC) [Entitic vol] 67.5 fL Low 80.0-100.0 [facility] Comment on above: Performed By: #### L [id number] #### LAB [address] [place] [address] Jack Mendoza M.D. [id number] MEAN CORPUSCULAR HEMOGLOBIN CONC 29.9 g/dL Low 31.0-37.0 [facility] Comment on above: Performed By: #### L [id number] #### LAB [address] [place] [address] Jack Mendoza M.D. [id number] Monocytes (Bld) [#/Vol] 0.20 10*3/uL Low 0.30-0.90 [facility] Comment on above: Performed By: #### L [id number] #### LAB [address] [address] Jack Mendoza M.D. [id number] Monocytes/100 WBC (Bld) 9.0 % Normal [facility] Comment on above: Performed By: #### L [id number] #### LAB [address] [address] Jack Mendoza M.D. [id number] NEUTROPHILS ABSOLUTE COUNT 1.18 K/mcL Low 1.70-7.00 [facility] Comment on above: Performed By: #### L [id number] #### LAB [address] [address] Jack Mendoza M.D. [id number] Neutrophils/100 WBC (Bld) 53.4 % Normal [facility] Comment on above: Performed By: #### L [id number] #### LAB [address] [address] Jack Mendoza M.D. [id number] Platelet mean volume (Bld) [Entitic vol] 9.8 fL Normal 9.4-12.4 [facility] Comment on above: Performed By: #### L [id number] #### LAB [address] [address] Jack Mendoza M.D. [id number] Platelets (Bld) [#/Vol] 88 10*3/uL Low 150-400 [facility] Comment on above: Performed By: #### L [id number] ####[facility] LAB [address] [address] Jack Mendoza M.D. [id number] RBC (Bld) [#/Vol] 4.71 10*6/uL Normal 4.50-5.90 [facility] Comment on above: Performed By: #### L [id number] #### LAB [address] [address] Jack Mendoza M.D. [id number] WBC (Bld) [#/Vol] 2.21 10*3/uL Low 4.50-11.00 [facility] Comment on above: Performed By: #### L [id number] #### LAB [address] [address] Jack Mendoza M.D. [id number] CT KNEE RIGHT WITHOUT CONTRA STon 02-15-2025 CT KNEE RIGHT WITHOUT CONTRAST Normal [facility] Comment on above: Order Comment: Injur y/Trauma or Illness?:Illness/OtherHow long have you had these symptoms (acute/chronic)?:AcuteReason for exam?:R knee swellingType of Exam?:InitialAdditional signs and symptoms?:Per RN, pt was seen by doctor and told to come to ED for knee issues. Knee replacement done in 2019 MAGNESIUM LEVELon 02-15-2025 Magnesium [Mass/Vol] 1.8 mg/dL Normal 1.6-2.4 [facility] Comment on above: Performed By: #### 4 6109 #### LAB [address] [address] Jack Mendoza M.D. [id number] XR MODIFIED BARIUM SWALLOWon 02-15-2025 XR MODIFIED BARIUM SWALLOW Normal [facility] Comment on above: Order Comment: Injur y/Trauma or Illness?:Illness/OtherHow long have you had these symptoms (acute/chronic)?:AcuteReason for exam?:dysphagiaType of Exam?:InitialAdditional signs and symptoms?:nFluoro time in minutes:1.18Fluoro dose in mGy?:56.5 B12/FOLATEon 02-14-2025 Cobalamin (Vitamin B12) [Mass/Vol] 1010 pg/mL Normal 232-1245 [facility] Comment on above: Performed By: #### 4 6967 ####[facility] [address] [address] Jack Mendoza M.D. [id number] FOLATE 13.7 ng/mL Normal 3.1-17.5 [facility] Comment on above: Result Comment: Defi cient <2.2Borderline 2.2 - 3.0Excessive >17.5 Performed By: #### 4 6912 #### LAB [address] [address] Jack Mendoza M.D. [id number] BASIC METABOLIC PANELon 06-2 Anion gap [Moles/Vol] 13 mmol/L Normal 10-20 [facility] Comment on above: Order Comment: [facility] has implemented the eGFR calculation approach that does not have a coefficient for race that conforms to the NKF-ASN Task Force Recommendations. Performed By: #### 4 6124 #### LAB [address] [address] Jack Mendoza M.D. [id number] Calcium [Mass/Vol] 8.8 mg/dL Normal 8.4-10.2 [facility] Comment on above: Order Comment: [facility] has implemented the eGFR calculation approach that does not have a coefficient for race that conforms to the NKF-ASN Task Force Recommendations. Performed By: #### 4 6124 #### LAB [address] [place], [place] [address] Jack Mendoza M.D. [id number] Chloride [Moles/Vol] 111 mmol/L High 98-108 [facility] Comment on above: Order Comment: [facility] has implemented the eGFR calculation approach that does not have a coefficient for race that conforms to the NKF-ASN Task Force Recommendations. Performed By: #### 4 6124 #### LAB [address] [place], [place] [address] Jack Mendoza M.D. [id number] Creatinine [Mass/Vol] 1.16 mg/dL Normal 0.50-1.30 [facility] Comment on above: Order Comment: [facility] has implemented the eGFR calculation approach that does not have a coefficient for race that conforms to the NKF-ASN Task Force Recommendations. Performed By: #### 4 6124 #### LAB [address] [address] Jack Mendoza M.D. [id number] EGFR 73 mL/min/1.73 m2 Normal >=60 [facility] Comment on above: Order Comment: [facility] has implemented the eGFR calculation approach that does not have a coefficient for race that conforms to the NKF-ASN Task Force Recommendations. Result Comment: Ashley mated GFR was calculated using the 2020 CKD-EPI creatinine equation. Performed By: #### 4 6124 #### LAB [address] [address] Jack Mendoza M.D. [id number] Glucose [Mass/Vol] 125 mg/dL High 65-99 [facility] Comment on above: Order Comment: [facility] has implemented the eGFR calculation approach that does not have a coefficient for race that conforms to the NKF-ASN Task Force Recommendations. Performed By: #### 4 6124 #### LAB [address] [address] Jack Mendoza M.D. [id number] HCO3 (Bld) [Moles/Vol] 25 mmol/L Normal 21-32 [facility] Comment on above: Order Comment: [facility] has implemented the eGFR calculation approach that does not have a coefficient for race that conforms to the NKF-ASN Task Force Recommendations. Performed By: #### 4 6124 #### LAB [address] [address] Jack Mendoza M.D. [id number] Potassium [Moles/Vol] 4.6 mmol/L Normal 3.5-5.1 [facility] Comment on above: Order Comment: [facility] has implemented the eGFR calculation approach that does not have a coefficient for race that conforms to the NKF-ASN Task Force Recommendations. Performed By: #### 4 6124 #### LAB [address] [address] Jack Mendoza M.D. [id number] Sodium [Moles/Vol] 144 mmol/L Normal 135-145 [facility] Comment on above: Order Comment: [facility] has implemented the eGFR calculation approach that does not have a coefficient for race that conforms to the NKF-ASN Task Force Recommendations. Performed By: #### 4 6124 #### LAB [address] [address] Jack Mendoza M.D. [id number] Urea nitrogen [Mass/Vol] 23 mg/dL Normal 8-25 [facility] Comment on above: Order Comment: [facility] has implemented the eGFR calculation approach that does not have a coefficient for race that conforms to the NKF-ASN Task Force Recommendations. Performed By: #### 4 6124 #### LAB [address] [address] Jack Mendoza M.D. [id number] Urea nitrogen/Creatinine [Mass ratio] 19.8 mg/mg Normal 10.0-20.0 [facility] Comment on above: Order Comment: [facility] has implemented the eGFR calculation approach that does not have a coefficient for race that conforms to the NKF-ASN Task Force Recommendations. Performed By: #### 4 6124 #### LAB [address] [address] Jack Mendoza M.D. [id number] CBC WITH AUTO DIFFERENTIALon 02-14-2025 AUTO NRBC 0.0 % Normal [facility] Comment on above: Performed By: #### L [id number] ####[facility] [address] [address] Jack Mendoza M.D. [id number] AUTO NRBC ABS COUNT 0.00 K/mcL Normal 0.00-0.00 [facility] Comment on above: Performed By: #### L [id number] ####[facility] [address] [address] Jack Mendoza M.D. [id number] Erythrocyte distribution width (RBC) [Ratio] 19.9 % High 11.6-14.8 [facility] Comment on above: Performed By: #### L [id number] ####[facility] [address] [address] Jack Mendoza M.D. [id number] Hematocrit (Bld) [Volume fraction] 35.2 % Low 41.0-53.0 [facility] Comment on above: Performed By: #### L [id number] #### LAB [address] [address] Jack Mendoza M.D. [id number] Hemoglobin (Bld) [Mass/Vol] 10.9 g/dL Low 13.5-17.5 [facility] Comment on above: Performed By: #### L [id number] #### LAB [address] [address] Jack Mendoza M.D. [id number] MCH (RBC) [Entitic mass] 20.6 pg Low 26.0-34.0 [facility] Comment on above: Performed By: #### L [id number] ####[facility] [address] [address] Jack Mendoza M.D. [id number] MCV (RBC) [Entitic vol] 66.4 fL Low 80.0-100.0 [facility] Comment on above: Performed By: #### L [id number] #### LAB [address] [address] Jack Mendoza M.D. [id number] MEAN CORPUSCULAR HEMOGLOBIN CONC 31.0 g/dL Normal 31.0-37.0 [facility] Comment on above: Performed By: #### L [id number] #### LAB [address] [address] Jack Mendoza M.D. [id number] Platelet mean volume (Bld) [Entitic vol] 9.8 fL Normal 9.4-12.4 [facility] Comment on above: Performed By: #### L [id number] #### LAB [address] [address] Jack Mendoza M.D. [id number] Platelets (Bld) [#/Vol] 95 10*3/uL Low 150-400 [facility] Comment on above: Performed By: #### L [id number] ####[facility] [address] [address] Jack Mendoza M.D. [id number] RBC (Bld) [#/Vol] 5.30 10*6/uL Normal 4.50-5.90 [facility] Comment on above: Performed By: #### L [id number] #### LAB [address] [address] Jack Mendoza M.D. [id number] WBC (Bld) [#/Vol] 2.72 10*3/uL Low 4.50-11.00 [facility] Comment on above: Performed By: #### L [id number] #### LAB [address] [address] Jack Mendoza M.D. [id number] CONSULTon 02-14-2025 CONSULT Normal [facility] FIBRINOGENon 02-14-2025 FIBRINOGEN LEVEL 488 mg/dL High 224-483 [facility] Comment on above: Performed By: #### 4 5616 #### LAB [address] [address] Jack Mendoza M.D. [id number] MAGNESIUM LEVELon 02-14-2025 Magnesium [Mass/Vol] 2.0 mg/dL Normal 1.6-2.4 [facility] Comment on above: Performed By: #### 4 6109 #### LAB [address] [address] Jack Mendoza M.D. [id number] MANUAL DIFFERENTIALon 2024 BASOPHILS - ABS (DIFF) 0.00 K/mcL Normal 0.00-0.30 [facility] Comment on above: Performed By: #### 4 5456 #### LAB [address] [address] Jack Mendoza M.D. [id number] BASOPHILS - REL (DIFF) 0.0 % Normal [facility] Comment on above: Performed By: #### 4 5456 #### LAB [address] [address] Jack eMndoza M.D. [id number] EOSINOPHILS - ABS (DIFF) 0.05 K/mcL Normal 0.00-0.50 [facility] Comment on above: Performed By: #### 4 5456 #### LAB [address] [address] Jack Mendoza M.D. [id number] EOSINOPHILS - REL (DIFF) 2.0 % [facility] Comment on above: Performed By: #### 4 5456 #### LAB [address] [address] Jack Mendoza M.D. [id number] LYMPHOCYTES - ABS (DIFF) 0.76 K/mcL Low 0.90-4.00 [facility] Comment on above: Performed By: #### 4 5456 #### LAB [address] [address] Jack Mendoza M.D. [id number] LYMPHOCYTES - REL (DIFF) 28.0 % [facility] Comment on above: Performed By: #### 4 5456 #### LAB [address] [address] Jack Mendoza M.D. [id number] MONOCYTES - ABS (DIFF) 0.14 K/mcL Low 0.30-0.90 [facility] Comment on above: Performed By: #### 4 5456 #### LAB [address] [address] Jack Mendoza M.D. [id number] MONOCYTES - REL (DIFF) 5.0 % [facility] Comment on above: Performed By: #### 4 5456 #### LAB [address] [address] Jack Mendoza M.D. [id number] NEUTROPHILS - ABS (DIFF) 1.77 K/mcL Normal 1.70-7.00 [facility] Comment on above: Performed By: #### 4 5456 #### LAB [address] [address] Jack Mendoza M.D. [id number] NEUTROPHILS - REL (DIFF) 65.0 % [facility] Comment on above: Performed By: #### 4 5456 #### LAB [address] [address] Jack Mendoza M.D. [id number] MORPHOLOGYon 02-14-2025 OVAL SCAN Moderate [facility] Comment on above: Performed By: #### L [id number] #### LAB [address] [address] Jack Mendoza M.D. [id number] PLATELET ESTIMATE Decreased Abnormal Normal [facility] Comment on above: Performed By: #### L [id number] ####[facility] [address] [address] Jack Mendoza M.D. [id number] POLY SCAN Moderate [facility] Comment on above: Performed By: #### L [id number] ####[facility] [address] [address] Jack Mendoza M.D. [id number] RBC MORPH SCAN See Comment Normal [facility] Comment on above: Result Comment: RBC Indices confirmed with manual peripheral smear review. Performed By: #### L [id number] ####[facility] [address] [address] Jack Mendoza M.D. [id number] TARGET CELL SCAN Moderate Normal [facility] Comment on above: Performed By: #### L [id number] ####[facility] [address] [address] Jack Mendoza M.D. [id number] MR BRAIN WITHOUT CONTRASTon 02-14-2025 MR BRAIN WITHOUT CONTRAST [facility] Comment on above: Order Comment: Injur y/Trauma or Illness?:Illness/OtherHow long have you had these symptoms (acute/chronic)?:AcuteReason for exam?:ams, encephalopathy and agitationType of Exam?:InitialAdditional signs and symptoms?:. [facility] Glucose [Mass/Vol] 111 mg/dL [address] Comment on above: Performed By: #### 4 6932 ####[facility] [address] [address] Jack Mendoza M.D. [id number] Glucose [Mass/Vol] 126 mg/dL [address] Comment on above: Performed By: #### 4 6932 ####[facility] [address] [address] Jack Mendoza M.D. [id number] Glucose [Mass/Vol] 118 mg/dL High 65-99 [facility] Comment on above: Performed By: #### 4 6932 #### LAB [address] [place], [place] [address] Jack Mendoza M.D. [id number] Glucose [Mass/Vol] 122 mg/dL High 65-99 [facility] Comment on above: Performed By: #### 4 6932 #### LAB [address] [address] Jack Mendoza M.D. [id number] PT/INRon 02-14-2025 INR Coag (PPP) [Relative time] 1.2 {INR} High 0.8-1.1 [facility] Comment on above: Order Comment: Markin g the induction phase of oral anticoagulation, the INR may not reflect the anticoagulation status of the patient. Therapeutic ranges for INR's are:Most clinical situations: INR 2.0-3.0Mechanical Prosthetic Valve: INR 2.5-3.5Critical: INR >5.0 Performed By: #### 4 6391 #### LAB [address] [place], [place] [address] Jack Mendoza M.D. [id number] PT Coag (PPP) [Time] 15.1 s High 11.8-14.3 [facility] Comment on above: Order Comment: Durin g the induction phase of oral anticoagulation, the INR may not reflect the anticoagulation status of the patient. Therapeutic ranges for INR's are:Most clinical situations: INR 2.0-3.0Mechanical Prosthetic Valve: INR 2.5-3.5Critical: INR >5.0 Performed By: #### 4 6391 #### LAB [address] [place], [place] [address] Jack Mendoza M.D. [id number] BASIC METABOLIC PANELon 01-21 Anion gap [Moles/Vol] 13 mmol/L Normal 10-20 [facility] Comment on above: Order Comment: [facility] has implemented the eGFR calculation approach that does not have a coefficient for race that conforms to the NKF-ASN Task Force Recommendations. Performed By: #### 4 6124 #### LAB [address] [address] Jack Mendoza M.D. [id number] Calcium [Mass/Vol] 8.7 mg/dL Normal 8.4-10.2 [facility] Comment on above: Order Comment: [facility] has implemented the eGFR calculation approach that does not have a coefficient for race that conforms to the NKF-ASN Task Force Recommendations. Performed By: #### 4 6124 #### LAB [address] [address] Jack Mendoza M.D. [id number] Chloride [Moles/Vol] 110 mmol/L High 98-108 [facility] Comment on above: Order Comment: [facility] has implemented the eGFR calculation approach that does not have a coefficient for race that conforms to the NKF-ASN Task Force Recommendations. Performed By: #### 4 6124 #### LAB [address] [address] Jack Mendoza M.D. [id number] Creatinine [Mass/Vol] 1.41 mg/dL High 0.50-1.30 [facility] Comment on above: Order Comment: [facility] has implemented the eGFR calculation approach that does not have a coefficient for race that conforms to the NKF-ASN Task Force Recommendations. Performed By: #### 4 6124 #### LAB [address] [address] Jack Mendoza M.D. [id number] EGFR 58 mL/min/1.73 m2 Low >=60 [facility] Comment on above: Order Comment: [facility] has implemented the eGFR calculation approach that does not have a coefficient for race that conforms to the NKF-ASN Task Force Recommendations. Result Comment: Ashley mated GFR was calculated using the 2020 CKD-EPI creatinine equation. Performed By: #### 4 6124 #### LAB [address] [address] Jack Mendoza M.D. [id number] Glucose [Mass/Vol] 132 mg/dL High 65-99 [facility] Comment on above: Order Comment: [facility] has implemented the eGFR calculation approach that does not have a coefficient for race that conforms to the NKF-ASN Task Force Recommendations. Performed By: #### 4 6124 #### LAB [address] [address] Jack Mendoza M.D. [id number] HCO3 (Bld) [Moles/Vol] 25 mmol/L Normal 21-32 [facility] Comment on above: Order Comment: [facility] has implemented the eGFR calculation approach that does not have a coefficient for race that conforms to the NKF-ASN Task Force Recommendations. Performed By: #### 4 6124 #### LAB [address] [address] Jack Mendoza M.D. [id number] Potassium [Moles/Vol] 4.7 mmol/L Normal 3.5-5.1 [facility] Comment on above: Order Comment: [facility] has implemented the eGFR calculation approach that does not have a coefficient for race that conforms to the NKF-ASN Task Force Recommendations. Performed By: #### 4 6124 #### LAB [address] [address] Jack Mendoza M.D. [id number] Sodium [Moles/Vol] 143 mmol/L Normal 135-145 [facility] Comment on above: Order Comment: [facility] has implemented the eGFR calculation approach that does not have a coefficient for race that conforms to the NKF-ASN Task Force Recommendations. Performed By: #### 4 6124 ####[facility] [address] [address] Jack Mendoza M.D. [id number] Urea nitrogen [Mass/Vol] 36 mg/dL High 8-25 [facility] Comment on above: Order Comment: [facility] has implemented the eGFR calculation approach that does not have a coefficient for race that conforms to the NKF-ASN Task Force Recommendations. Performed By: #### 4 6124 ####[facility] [address] [address] Jack Mendoza M.D. [id number] Urea nitrogen/Creatinine [Mass ratio] 25.5 mg/mg High 10.0-20.0 [facility] Comment on above: Order Comment: [facility] has implemented the eGFR calculation approach that does not have a coefficient for race that conforms to the NKF-ASN Task Force Recommendations. Performed By: #### 4 6124 #### LAB [address] [address] Jack Mendoza M.D. [id number] BLOOD CULTURE AEROBIC/ANAERO BICon 02-13-2025 BLOOD CULTURE AEROBIC/ANAEROBIC BLOOD CULTURE No Growth after 5 days [facility] Comment on above: Performed By: #### 4 4014 #### LAB [address] [address] Jack Mendoza M.D. [id number] BLOOD CULTURE AEROBIC/ANAEROBIC BLOOD CULTURE No Growth after 5 days [facility] Comment on above: Performed By: #### 4 4014 ####[facility] [address] [address] Jack Mendoza M.D. [id number] CBC WITH AUTO DIFFERENTIALon 02-13-2025 AUTO NRBC 0.0 % [facility] Comment on above: Performed By: #### L [id number] ####[facility] [address] [address] Jack Mendoza M.D. [id number] AUTO NRBC ABS COUNT 0.00 K/mcL Normal 0.00-0.00 [facility] Comment on above: Performed By: #### L [id number] ####[facility] [address] [address] Jack Mendoza M.D. [id number] BASOPHILS ABSOLUTE COUNT 0.02 K/mcL Normal 0.00-0.30 [facility] Comment on above: Performed By: #### L [id number] #### LAB [address] [address] Jack Mnedoza M.D. [id number] Basophils/100 WBC (Bld) 0.5 % Normal [facility] Comment on above: Performed By: #### L [id number] #### LAB [address] [address] Jack Mendoza M.D. [id number] Eosinophils (Bld) [#/Vol] 0.12 10*3/uL Normal 0.00-0.50 [facility] Comment on above: Performed By: #### L [id number] #### LAB [address] [address] Jack Mendoza M.D. [id number] Eosinophils/100 WBC (Bld) 2.9 % Normal [facility] Comment on above: Performed By: #### L [id number] #### LAB [address] [address] Jack Mendoza M.D. [id number] Erythrocyte distribution width (RBC) [Ratio] 20.3 % High 11.6-14.8 [facility] Comment on above: Performed By: #### L [id number] #### LAB [address] [address] Jack Mendoza M.D. [id number] Hematocrit (Bld) [Volume fraction] 38.0 % Low 41.0-53.0 [facility] Comment on above: Performed By: #### L [id number] #### LAB [address] [place] [address] Jack Mendoza M.D. [id number] Hemoglobin (Bld) [Mass/Vol] 11.6 g/dL Low 13.5-17.5 [facility] Comment on above: Performed By: #### L [id number] #### LAB [address] [address] Jack Mendoza M.D. [id number] IG ABSOLUTE 0.01 K/mcL Normal 0.00-0.30 [facility] Comment on above: Performed By: #### L [id number] #### LAB [address] [place] [address] Jack Mendoza M.D. [id number] IG PERCENT 0.20 % Normal [facility] Comment on above: Result Comment: The IG parameter is the percentage of metamyelocytes, myelocytes and promyelocytes. An immature granulocyte count (IG) of 1% or more suggests the possibility of infection, an IG count of 3% is very likely related to an infection. Performed By: #### L [id number] #### LAB [address] [place] [address] Jack Mendoza M.D. [id number] Lymphocytes (Bld) [#/Vol] 1.05 10*3/uL Normal 0.90-4.00 [facility] Comment on above: Performed By: #### L [id number] #### LAB [address] [address] Jack Mendoza M.D. [id number] Lymphocytes/100 WBC (Bld) 25.6 % Normal [facility] Comment on above: Performed By: #### L [id number] #### LAB [address] [place] [address] Jack Mendoza M.D. [id number] MCH (RBC) [Entitic mass] 20.4 pg Low 26.0-34.0 [facility] Comment on above: Performed By: #### L [id number] #### LAB [address] [address] Jack Mendoza M.D. [id number] MCV (RBC) [Entitic vol] 66.7 fL Low 80.0-100.0 [facility] Comment on above: Performed By: #### L [id number] #### LAB [address] [place] [address] Jack Mendoza M.D. [id number] MEAN CORPUSCULAR HEMOGLOBIN CONC 30.5 g/dL Low 31.0-37.0 [facility] Comment on above: Performed By: #### L [id number] #### LAB [address] [place] [address] Jack Mendoza M.D. [id number] Monocytes (Bld) [#/Vol] 0.55 10*3/uL Normal 0.30-0.90 [facility] Comment on above: Performed By: #### L [id number] #### LAB [address] [address] Jack Mendoza M.D. [id number] Monocytes/100 WBC (Bld) 13.4 % Normal [facility] Comment on above: Performed By: #### L [id number] #### LAB [address] [address] Jack Mendoza M.D. [id number] NEUTROPHILS ABSOLUTE COUNT 2.35 K/mcL Normal 1.70-7.00 [facility] Comment on above: Performed By: #### L [id number] #### LAB [address] [address] Jack Mendoza M.D. [id number] Neutrophils/100 WBC (Bld) 57.4 % Normal [facility] Comment on above: Result Comment: Tiffany pheral smear reviewed manually Performed By: #### L [id number] #### LAB [address] [address] Jack Mendoza M.D. [id number] Platelets (Bld) [#/Vol] 123 10*3/uL Low 150-400 [facility] Comment on above: Performed By: #### L [id number] #### LAB [address] [place] [address] Jack Mendoza M.D. [id number] RBC (Bld) [#/Vol] 5.70 10*6/uL Normal 4.50-5.90 [facility] Comment on above: Performed By: #### L [id number] #### LAB [address] [place] [address] Jack Mendoza M.D. [id number] WBC (Bld) [#/Vol] 4.10 10*3/uL Low 4.50-11.00 [facility] Comment on above: Performed By: #### L [id number] #### LAB [address] [place] [address] Jack Mendoza M.D. [id number] MAGNESIUM LEVELon 02-13-2025 Magnesium [Mass/Vol] 1.9 mg/dL Normal 1.6-2.4 [facility] Comment on above: Performed By: #### 4 6109 ####[facility] [address] [address] Jack Mendoza M.D. [id number] MORPHOLOGYon 02-13-2025 OVAL SCAN Moderate Normal [facility] Comment on above: Performed By: #### L [id number] ####[facility] [address] [address] Jack Mendoza M.D. [id number] PLATELET ESTIMATE Decreased Abnormal Normal [facility] Comment on above: Performed By: #### L [id number] ####[facility] [address] [address] Jack Mendoza M.D. [id number] POLY SCAN Few Normal [facility] Comment on above: Performed By: #### L [id number] ####[facility] [address] [address] Jack Mendoza M.D. [id number] RBC MORPH SCAN See Comment Normal [facility] Comment on above: Result Comment: RBC Indices confirmed with manual peripheral smear review. Performed By: #### L [id number] ####[facility] [address] [address] Jack Mendoza M.D. [id number] TARGET CELL SCAN Moderate Normal [facility] Comment on above: Performed By: #### L [id number] ####[facility] [address] [address] Jack Mendoza M.D. [id number] POC GLUCOSE - [facility] 025 Glucose [Mass/Vol] 137 mg/dL High [address] [place] [address] Comment on above: Performed By: #### 4 6932 ####[facility] [address] [address] Jack Mendoza M.D. [id number] Glucose [Mass/Vol] 160 mg/dL High [address] [place] [address] Comment on above: Performed By: #### 4 6932 #### LAB [address] [address] Jack Mendoza M.D. [id number] Glucose [Mass/Vol] 129 mg/dL High [address] [place] [address] Comment on above: Performed By: #### 4 6932 ####[facility] [address] [address] Jack Mendoza M.D. [id number] Glucose [Mass/Vol] 111 mg/dL High [address] [place] [address] Comment on above: Performed By: #### 4 6932 ####[facility] [address] [address] Jack Mendoza M.D. [id number] Glucose [Mass/Vol] 132 mg/dL High [address] [place] [address] Comment on above: Performed By: #### 4 6932 #### LAB [address] [address] Jack Mendoza M.D. [id number] SPUTUM AEROBIC CULTUREon SPUTUM AEROBIC CULTURE RESPIRATORY CULTURE Normal Sobeida after 48 hrs GRAM STAIN RESULT Many WBC Few Epithelial Cells Moderate Mixed Sobeida Normal [facility] Comment on above: Performed By: #### 4 4046 ####[facility] [address] [address] Venancio Richardson M.D. [id number] XR CHEST PA/APon 02-13-2025 XR CHEST PA/AP [facility] Comment on above: Order Comment: Injur y/Trauma or Illness?:Illness/OtherHow long have you had these symptoms (acute/chronic)?:AcuteReason for exam?:respritoty failureHistory of cancer?:uSurgeries, chemotherapy, or radiation?:uType of Exam?:Subsequent/Follow-upAdditional signs and symptoms?:u AMMONIAon 02-12-2025 AMMONIA 32 micromol/L Normal 12-47 [facility] Comment on above: Performed By: #### 4 5060 #### LAB [address] [address] Jack Mendoza M.D. [id number] BASIC METABOLIC PANELon 06-2 Anion gap [Moles/Vol] 13 mmol/L Normal 10-20 [facility] Comment on above: Order Comment: [facility] has implemented the eGFR calculation approach that does not have a coefficient for race that conforms to the NKF-ASN Task Force Recommendations. Performed By: #### 4 6124 #### LAB [address] [address] Jack Mendoza M.D. [id number] Calcium [Mass/Vol] 8.3 mg/dL Low 8.4-10.2 [facility] Comment on above: Order Comment: [facility] has implemented the eGFR calculation approach that does not have a coefficient for race that conforms to the NKF-ASN Task Force Recommendations. Performed By: #### 4 6124 #### LAB [address] [address] Jack Mendoza M.D. [id number] Chloride [Moles/Vol] 108 mmol/L Normal 98-108 [facility] Comment on above: Order Comment: [facility] has implemented the eGFR calculation approach that does not have a coefficient for race that conforms to the NKF-ASN Task Force Recommendations. Performed By: #### 4 6124 #### LAB [address] [place], [place] [address] Jack Mendoza M.D. [id number] Creatinine [Mass/Vol] 2.43 mg/dL High 0.50-1.30 [facility] Comment on above: Order Comment: [facility] has implemented the eGFR calculation approach that does not have a coefficient for race that conforms to the NKF-ASN Task Force Recommendations. Performed By: #### 4 6124 #### LAB [address] [address] Jack Mendoza M.D. [id number] EGFR 30 mL/min/1.73 m2 Low >=60 [facility] Comment on above: Order Comment: [facility] has implemented the eGFR calculation approach that does not have a coefficient for race that conforms to the NKF-ASN Task Force Recommendations. Result Comment: Ashley mated GFR was calculated using the 2020 CKD-EPI creatinine equation. Performed By: #### 4 6108 #### LAB [address] [address] Jack Mendoza M.D. [id number] Glucose [Mass/Vol] 129 mg/dL High 65-99 [facility] Comment on above: Order Comment: [facility] has implemented the eGFR calculation approach that does not have a coefficient for race that conforms to the NKF-ASN Task Force Recommendations. Performed By: #### 4 6124 #### LAB [address] [address] Jack Mendoza M.D. [id number] HCO3 (Bld) [Moles/Vol] 23 mmol/L Normal 21-32 [facility] Comment on above: Order Comment: [facility] has implemented the eGFR calculation approach that does not have a coefficient for race that conforms to the NKF-ASN Task Force Recommendations. Performed By: #### 4 6124 #### LAB [address] [address] Jack Mendoza M.D. [id number] Potassium [Moles/Vol] 5.2 mmol/L High 3.5-5.1 [facility] Comment on above: Order Comment: [facility] has implemented the eGFR calculation approach that does not have a coefficient for race that conforms to the NKF-ASN Task Force Recommendations. Performed By: #### 4 6124 #### LAB [address] [address] Jack Mendoza M.D. [id number] Sodium [Moles/Vol] 139 mmol/L Normal 135-145 [facility] Comment on above: Order Comment: [facility] has implemented the eGFR calculation approach that does not have a coefficient for race that conforms to the NKF-ASN Task Force Recommendations. Performed By: #### 4 6124 #### LAB [address] [address] aJck Mendoza M.D. [id number] Urea nitrogen [Mass/Vol] 62 mg/dL High 8-25 [facility] Comment on above: Order Comment: [facility] has implemented the eGFR calculation approach that does not have a coefficient for race that conforms to the NKF-ASN Task Force Recommendations. Performed By: #### 4 6124 #### LAB [address] [place], [place] [address] Jack Mendoza M.D. [id number] Urea nitrogen/Creatinine [Mass ratio] 25.5 mg/mg High 10.0-20.0 [facility] Comment on above: Order Comment: [facility] has implemented the eGFR calculation approach that does not have a coefficient for race that conforms to the NKF-ASN Task Force Recommendations. Performed By: #### 4 6124 #### LAB [address] [address] Jack Mendoza M.D. [id number] Anion gap [Moles/Vol] 18 mmol/L Normal 10-20 [facility] Comment on above: Order Comment: [facility] has implemented the eGFR calculation approach that does not have a coefficient for race that conforms to the NKF-ASN Task Force Recommendations. Performed By: #### 4 6124 #### LAB [address] [address] Jack Mendoza M.D. [id number] Calcium [Mass/Vol] 8.4 mg/dL Normal 8.4-10.2 [facility] Comment on above: Order Comment: [facility] has implemented the eGFR calculation approach that does not have a coefficient for race that conforms to the NKF-ASN Task Force Recommendations. Performed By: #### 4 6124 #### LAB [address] [address] Jack Mendoza M.D. [id number] Chloride [Moles/Vol] 102 mmol/L Normal 98-108 [facility] Comment on above: Order Comment: [facility] has implemented the eGFR calculation approach that does not have a coefficient for race that conforms to the NKF-ASN Task Force Recommendations. Performed By: #### 4 6124 #### LAB [address] [address] Jack Mendoza M.D. [id number] Creatinine [Mass/Vol] 3.72 mg/dL High 0.50-1.30 [facility] Comment on above: Order Comment: [facility] has implemented the eGFR calculation approach that does not have a coefficient for race that conforms to the NKF-ASN Task Force Recommendations. Performed By: #### 4 6124 #### LAB [address] [address] Jack Mendoza M.D. [id number] EGFR 18 mL/min/1.73 m2 Low >=60 [facility] Comment on above: Order Comment: [facility] has implemented the eGFR calculation approach that does not have a coefficient for race that conforms to the NKF-ASN Task Force Recommendations. Result Comment: Ashley mated GFR was calculated using the 2020 CKD-EPI creatinine equation. Performed By: #### 4 6124 #### LAB [address] [address] Jack Mendoza M.D. [id number] Glucose [Mass/Vol] 126 mg/dL High 65-99 [facility] Comment on above: Order Comment: [facility] has implemented the eGFR calculation approach that does not have a coefficient for race that conforms to the NKF-ASN Task Force Recommendations. Performed By: #### 4 6124 #### LAB [address] [address] Jack Mendoza M.D. [id number] HCO3 (Bld) [Moles/Vol] 22 mmol/L Normal 21-32 [facility] Comment on above: Order Comment: [facility] has implemented the eGFR calculation approach that does not have a coefficient for race that conforms to the NKF-ASN Task Force Recommendations. Performed By: #### 4 6124 #### LAB [address] [address] Jack Mendoza M.D. [id number] Potassium [Moles/Vol] 5.6 mmol/L High 3.5-5.1 [facility] Comment on above: Order Comment: [facility] has implemented the eGFR calculation approach that does not have a coefficient for race that conforms to the NKF-ASN Task Force Recommendations. Performed By: #### 4 6124 #### LAB [address] [place], [place] [address] Jack Mendoza M.D. [id number] Sodium [Moles/Vol] 136 mmol/L Normal 135-145 [facility] Comment on above: Order Comment: [facility] has implemented the eGFR calculation approach that does not have a coefficient for race that conforms to the NKF-ASN Task Force Recommendations. Performed By: #### 4 6124 #### LAB [address] [address] Jack Mendoza M.D. [id number] Urea nitrogen [Mass/Vol] 81 mg/dL High 8-25 [facility] Comment on above: Order Comment: [facility] has implemented the eGFR calculation approach that does not have a coefficient for race that conforms to the NKF-ASN Task Force Recommendations. Performed By: #### 4 6124 #### LAB [address] [address] Jack Mendoza M.D. [id number] Urea nitrogen/Creatinine [Mass ratio] 21.8 mg/mg High 10.0-20.0 [facility] Comment on above: Order Comment: [facility] has implemented the eGFR calculation approach that does not have a coefficient for race that conforms to the NKF-ASN Task Force Recommendations. Performed By: #### 4 6124 #### LAB [address] [address] Jack Mendoza M.D. [id number] CBC WITH AUTO DIFFERENTIALon 02-12-2025 AUTO NRBC 0.0 % Normal [facility] Comment on above: Performed By: #### L [id number] #### LAB [address] [address] Jack Mendoza M.D. [id number] AUTO NRBC ABS COUNT 0.00 K/mcL Normal 0.00-0.00 [facility] Comment on above: Performed By: #### L [id number] #### LAB [address] [address] Jack Mendoza M.D. [id number] BASOPHILS ABSOLUTE COUNT 0.04 K/mcL Normal 0.00-0.30 [facility] Comment on above: Performed By: #### L [id number] #### LAB [address] [address] Jack Mendoza M.D. [id number] Basophils/100 WBC (Bld) 0.5 % Normal [facility] Comment on above: Performed By: #### L [id number] #### LAB [address] [address] Jack Mendoza M.D. [id number] Eosinophils (Bld) [#/Vol] 0.19 10*3/uL Normal 0.00-0.50 [facility] Comment on above: Performed By: #### L [id number] #### LAB [address] [address] Jack Mendoza M.D. [id number] Eosinophils/100 WBC (Bld) 2.3 % Normal [facility] Comment on above: Performed By: #### L [id number] #### LAB [address] [place] [address] Jack Mendoza M.D. [id number] Erythrocyte distribution width (RBC) [Ratio] 20.3 % High 11.6-14.8 [facility] Comment on above: Performed By: #### L [id number] #### LAB [address] [address] Jack Mendoza M.D. [id number] Hematocrit (Bld) [Volume fraction] 36.7 % Low 41.0-53.0 [facility] Comment on above: Performed By: #### L [id number] #### LAB [address] [place] [address] Jack Mendoza M.D. [id number] Hemoglobin (Bld) [Mass/Vol] 11.2 g/dL Low 13.5-17.5 [facility] Comment on above: Performed By: #### L [id number] #### LAB [address] [address] Jack Mendoza M.D. [id number] IG ABSOLUTE 0.04 K/mcL Normal 0.00-0.30 [facility] Comment on above: Performed By: #### L [id number] #### LAB [address] [address] Jack Mendoza M.D. [id number] IG PERCENT 0.50 % Normal [facility] Comment on above: Result Comment: The IG parameter is the percentage of metamyelocytes, myelocytes and promyelocytes. An immature granulocyte count (IG) of 1% or more suggests the possibility of infection, an IG count of 3% is very likely related to an infection. Performed By: #### L [id number] #### LAB [address] [address] Jack Mendoza M.D. [id number] Lymphocytes (Bld) [#/Vol] 1.84 10*3/uL Normal 0.90-4.00 [facility] Comment on above: Performed By: #### L [id number] #### LAB [address] [address] Jack Mendoza M.D. [id number] Lymphocytes/100 WBC (Bld) 22.7 % Normal [facility] Comment on above: Performed By: #### L [id number] #### LAB [address] [address] Jack Mendoza M.D. [id number] MCH (RBC) [Entitic mass] 20.3 pg Low 26.0-34.0 [facility] Comment on above: Performed By: #### L [id number] #### LAB [address] [address] Jack Mendoza M.D. [id number] MCV (RBC) [Entitic vol] 66.6 fL Low 80.0-100.0 [facility] Comment on above: Performed By: #### L [id number] ####[facility] [address] [address] Jack Mendoza M.D. [id number] MEAN CORPUSCULAR HEMOGLOBIN CONC 30.5 g/dL Low 31.0-37.0 [facility] Comment on above: Performed By: #### L [id number] #### LAB [address] [address] Jack Mendoza M.D. [id number] Monocytes (Bld) [#/Vol] 0.84 10*3/uL Normal 0.30-0.90 [facility] Comment on above: Performed By: #### L [id number] #### LAB [address] [address] Jack Mendoza M.D. [id number] Monocytes/100 WBC (Bld) 10.3 % Normal [facility] Comment on above: Performed By: #### L [id number] #### LAB [address] [address] Jack Mendoza M.D. [id number] NEUTROPHILS ABSOLUTE COUNT 5.17 K/mcL Normal 1.70-7.00 [facility] Comment on above: Performed By: #### L [id number] #### LAB [address] [address] Jack Mendoza M.D. [id number] Neutrophils/100 WBC (Bld) 63.7 % Normal [facility] Comment on above: Performed By: #### L [id number] #### LAB [address] [address] Jack Mendoza M.D. [id number] Platelet mean volume (Bld) [Entitic vol] 9.7 fL Normal 9.4-12.4 [facility] Comment on above: Performed By: #### L [id number] #### LAB [address] [address] Jack Mendoza M.D. [id number] Platelets (Bld) [#/Vol] 205 10*3/uL Normal 150-400 [facility] Comment on above: Performed By: #### L [id number] ####[facility] [address] [address] Jack Mendoza M.D. [id number] RBC (Bld) [#/Vol] 5.51 10*6/uL Normal 4.50-5.90 [facility] Comment on above: Performed By: #### L [id number] ####[facility] [address] [address] Jack Mendoza M.D. [id number] WBC (Bld) [#/Vol] 8.12 10*3/uL Normal 4.50-11.00 [facility] Comment on above: Performed By: #### L [id number] ####[facility] [address] [address] Jack Mendoza M.D. [id number] CONSULTon 02-12-2025 CONSULT Normal [facility] CPKon 02-12-2025 CPK 74 U/L Normal [address] [place] [address] Comment on above: Performed By: #### 4 8261 ####[facility] [address] [address] Jack Mendoza M.D. [id number] CPK 43 U/L Low [address] [place] [address] Comment on above: Performed By: #### 4 8261 ####[facility] [address] [address] Jack Mendoza M.D. [id number] CRP, INFLAMMATIONon 02-13-20 25 CRP [Mass/Vol] 33.9 mg/L High 0.0-10.0 [facility] Comment on above: Performed By: #### 4 5334 ####[facility] [address] [address] Jack Mendoza M.D. [id number] CT CHEST ABDOMEN PELVIS WITH OUT CONTRASTon 02-12-2025 CT CHEST ABDOMEN PELVIS WITHOUT CONTRAST Normal [facility] Comment on above: Order Comment: Injur y/Trauma or Illness?:Illness/OtherHow long have you had these symptoms (acute/chronic)?:AcuteReason for exam?:marlene, sepsisType of Exam?:InitialAdditional signs and symptoms?:. ECHOCARDIOGRAM COMPLETEon ECHOCARDIOGRAM COMPLETE Normal [facility] ED Prov Noteon 02-12-2025 ED Prov Note Normal [facility] ETHYLENE GLYCOLon 02-12-2025 ETHYLENE GLYCOL Not detected Normal None Detected [facility] Comment on above: Order Comment: Test performed by:[facility] Reference [address] [place] [id number] Result Comment: This Gas Chromatography test was developed and its performance characteristics determined by Toxicology Laboratory at [facility]. It has not been cleared or approved by the FDA. The laboratory is regulated under CLIA as qualified to perform high-complexity testing. This test is used for clinical purposes. It should not be regarded as investigational or for research. Performed By: #### 4 5562 #### LAB [address] [address] Jack Mendoza M.D. [id number] HEPATIC FUNCTION PANELon Albumin [Mass/Vol] 3.1 g/dL Low 3.2-5.2 [facility] Comment on above: Performed By: #### 4 5866 ####[facility] [address] [address] Jack Mendoza M.D. [id number] ALP [Catalytic activity/Vol] 60 U/L Normal 40-150 [facility] Comment on above: Performed By: #### 4 5866 #### LAB [address] [address] Jack Mendoza M.D. [id number] ALT [Catalytic activity/Vol] 10 U/L Normal 0-50 U/L [facility] Comment on above: Performed By: #### 4 5866 ####[facility] [address] [address] Jack Mendoza M.D. [id number] AST [Catalytic activity/Vol] 22 U/L Normal 0-50 U/L [facility] Comment on above: Performed By: #### 4 5866 #### LAB [address] [address] Jack Mendoza M.D. [id number] Bilirubin [Mass/Vol] 0.5 mg/dL Normal 0.0-1.3 [facility] Comment on above: Performed By: #### 4 5866 #### LAB [address] [address] Jack Mendoza M.D. [id number] Bilirubin.indirect [Mass/Vol] 0.3 mg/dL Normal 0.0-0.4 [facility] Comment on above: Performed By: #### 4 5866 #### LAB [address] [address] Jack Mendoza M.D. [id number] Protein [Mass/Vol] 7.4 g/dL Normal 6.0-8.0 [facility] Comment on above: Performed By: #### 4 5866 #### LAB [address] [address] Jack Mendoza M.D. [id number] MAGNESIUM LEVELon 02-12-2025 Magnesium [Mass/Vol] 2.3 mg/dL Normal 1.6-2.4 [facility] Comment on above: Performed By: #### 4 6109 #### LAB [address] [address] Jack Mendoza M.D. [id number] MRSA DNA AMPLIFIED PROBEon 0 02-12-2025 MRSA DNA AMPLIFIED PROBE Negative Normal Not Detected, MRSA NEGATIVE [facility] Comment on above: Performed By: #### 4 8061 #### LAB [address] [address] Jack Mendoza M.D. [id number] NT PRO BNPon 02-12-2025 Natriuretic peptide B (Bld) [Mass/Vol] 157 pg/mL Normal 0-300 [facility] Comment on above: Order Comment: Pride Study Cut-offsRule In:< /= 50 Years >450 pg/mL51 Years - 75 Years >900 pg/mL76 Years - 99 Years >1800 pg/mLRule Out:All patients <300 pg/mL Performed By: #### 4 7395 #### LAB [address] [place], [place] [address] Jack Mendoza M.D. [id number] POC ARTERIAL BLOOD GAS PANEL -ERIKA Shannon 02-12-2025 [id number] 131.4 mm Hg Normal [facility] Comment on above: Performed By: #### 4 8716 #### LAB [address] [address] Jack Mendoza M.D. [id number] BASE EXCESS, ARTERIAL -0.7 Normal -2.0-2.0 [facility] Comment on above: Performed By: #### 4 8716 ####[facility] [address] [address] Jack Mendoza M.D. [id number] CALCIUM IONIZED 4.7 mg/dL Normal 4.5-5.3 [facility] Comment on above: Performed By: #### 4 8716 #### LAB [address] [address] Jack Mendoza M.D. [id number] CARBOXYHEMOGLOBIN 1.1 % of total Hb Normal <=1.5 [facility] Comment on above: Result Comment: Refe rence Ranges:Suburban Non-smokers: <1.5%Smokers: 1.5-5.0%Heavy Smokers: 5.0-9.0% Performed By: #### 4 8716 #### LAB [address] [address] Jack Mendoza M.D. [id number] Chloride [Moles/Vol] 106 mmol/L Normal 98-108 [facility] Comment on above: Performed By: #### 4 8716 ####[facility] [address] [address] Jack Mendoza M.D. [id number] FIO2 40 Normal [facility] Comment on above: Performed By: #### 4 8716 ####[facility] [address] [address] Jack Mendoza M.D. [id number] Glucose [Mass/Vol] 133 mg/dL High 65-99 [facility] Comment on above: Performed By: #### 4 8716 #### LAB [address] [address] Jack Mendoza M.D. [id number] HCO3 (Bld) [Moles/Vol] 24.2 mmol/L Normal 22.0-26.0 [facility] Comment on above: Performed By: #### 4 8716 #### LAB [address] [address] Jack Mendoza M.D. [id number] Hematocrit (Bld) [Volume fraction] 36.6 % Low 41.0-53.0 [facility] Comment on above: Performed By: #### 4 8716 #### LAB [address] [address] Jack Mendoza M.D. [id number] Hemoglobin (Bld) [Mass/Vol] 11.9 g/dL Low 13.5-17.5 [facility] Comment on above: Performed By: #### 4 8716 #### LAB [address] [address] Jack Mendoza M.D. [id number] LACTIC ACID, WHOLE BLOOD 1.1 mmol/L Normal 0.6-2.0 [facility] Comment on above: Performed By: #### 4 8716 #### LAB [address] [address] Jack Mendoza M.D. [id number] METHEMOGLOBIN < Normal 0.0-2.0 [facility] Comment on above: Performed By: #### 4 8716 #### LAB [address] [address] Jack Mendoza M.D. [id number] O2HB 96.0 % Normal 94.0-98.0 [facility] Comment on above: Performed By: #### 4 8716 #### LAB [address] [address] Jack Mendoza M.D. [id number] Oxygen saturation in Blood 97.8 % Normal 92.0-99.0 [facility] Comment on above: Performed By: #### 4 8716 ####[facility] [address] [address] Jack Mendoza M.D. [id number] PCO2 ARTERIAL 40.2 mm Hg Normal 35.0-45.0 [facility] Comment on above: Performed By: #### 4 8716 ####[facility] [address] [address] Jack Mendoza M.D. [id number] PEEP RAD 5 Normal [facility] Comment on above: Performed By: #### 4 8716 ####[facility] [address] [address] Jack Mendoza M.D. [id number] PH ARTERIAL 7.39 Normal 7.35-7.45 [facility] Comment on above: Performed By: #### 4 8716 #### LAB [address] [address] Jack Mendoza M.D. [id number] PO2 ARTERIAL 97 mm Hg Normal 80-100 [facility] Comment on above: Performed By: #### 4 8716 #### LAB [address] [address] Jack Mendoza M.D. [id number] Potassium [Moles/Vol] 4.9 mmol/L Normal 3.5-5.1 [facility] Comment on above: Performed By: #### 4 8716 #### LAB [address] [address] Jack Mendoza M.D. [id number] RESP RATE RAD 24 Normal [facility] Comment on above: Performed By: #### 4 8716 #### LAB [address] [address] Jack Mendoza M.D. [id number] Sodium [Moles/Vol] 138 mmol/L Normal 135-145 [facility] Comment on above: Performed By: #### 4 8716 ####[facility] [address] [address] Jakc Mendoza M.D. [id number] SPECIMEN SOURCE RADIANCE Radial, left Normal [facility] Comment on above: Performed By: #### 4 8716 ####[facility] [address] [address] Jack Mendoza M.D. [id number] TIDAL VOLUME RAD 460 Normal [facility] Comment on above: Performed By: #### 4 8716 ####[facility] [address] [address] Jack Mendoza M.D. [id number] POC GLUCOSE [facility] [facility] 025 Glucose [Mass/Vol] 136 mg/dL [address] Comment on above: Performed By: #### 4 6932 ####[facility] [address] [address] Jack Mendoza M.D. [id number] Glucose [Mass/Vol] 138 mg/dL [address] Comment on above: Performed By: #### 4 6932 ####[facility] [address] [address] Jack Mendoza M.D. [id number] Glucose [Mass/Vol] 123 mg/dL [address] Comment on above: Performed By: #### 4 6932 ####[facility] [address] [address] Jack Mendoza M.D. [id number] Glucose [Mass/Vol] 130 mg/dL [address] Comment on above: Performed By: #### 4 6932 #### LAB [address] [address] Jack Mendoza M.D. [id number] Glucose [Mass/Vol] 121 mg/dL [address] Comment on above: Performed By: #### 4 6955 ####[facility] [address] [address] Jack Mendoza M.D. [id number] Glucose [Mass/Vol] 130 mg/dL [address] Comment on above: Performed By: #### 4 4723 ####[facility] [address] [address] Jcak Mendoza M.D. [id number] Glucose [Mass/Vol] 139 mg/dL High [address] [place] [address] Comment on above: Performed By: #### 4 6932 #### LAB [address] [address] Jack Mendoza M.D. [id number] Glucose [Mass/Vol] 113 mg/dL [address] Comment on above: Performed By: #### 4 6932 #### LAB [address] [address] Jack Mendoza M.D. [id number] Glucose [Mass/Vol] 112 mg/dL [address] Comment on above: Performed By: #### 4 6932 #### LAB [address] [address] Jack Mendoza M.D. [id number] Glucose [Mass/Vol] 106 mg/dL [address] Comment on above: Performed By: #### 4 6932 #### LAB [address] [address] Jack Mendoza M.D. [id number] PROCALCITONINon 02-12-2025 PROCALCITONIN 0.20 ng/ml Normal <0.50 [facility] Comment on above: Order Comment: Resul ts <0.50 ng/ml represent a low risk of severe sepsis and/or septic shock. Performed By: #### 4 7652 #### LAB [address] [address] Jack Mendoza M.D. [id number] PT/INRon 02-12-2025 INR Coag (PPP) [Relative time] 1.2 {INR} High 0.8-1.1 [facility] Comment on above: Order Comment: Markin g the induction phase of oral anticoagulation, the INR may not reflect the anticoagulation status of the patient. Therapeutic ranges for INR's are:Most clinical situations: INR 2.0-3.0Mechanical Prosthetic Valve: INR 2.5-3.5Critical: INR >5.0 Performed By: #### 4 6391 #### LAB [address] [address] Jack Mendoza M.D. [id number] PT Coag (PPP) [Time] 15.0 s High 11.8-14.3 [facility] Comment on above: Order Comment: Paxton g the induction phase of oral anticoagulation, the INR may not reflect the anticoagulation status of the patient. Therapeutic ranges for INR's are:Most clinical situations: INR 2.0-3.0Mechanical Prosthetic Valve: INR 2.5-3.5Critical: INR >5.0 Performed By: #### 4 6391 #### LAB [address] [address] Jack Mendoza M.D. [id number] RESPIRATORY PCR PANELon 01-21 RESPIRATORY PCR PANEL Normal Not Detected [facility] Comment on above: Performed By: #### L [id number] ####[facility] [address] [place] [address] Venancio Richardson M.D. [id number] SEDIMENTATION RATEon 025 SEDIMENTATION RATE, ERYTHROCYTE 102 mm/hr High 0-20 [facility] Comment on above: Performed By: #### 4 6477 #### LAB [address] [address] Jack Mendoza M.D. [id number] URINE AEROBIC CULTUREon 01-21 URINE AEROBIC CULTURE URINE CULTURE No Growth (<1,000 CFU/mL) Normal [facility] Comment on above: Performed By: #### 4 4053 ####[facility] [address] [place] [address] Venancio Richardson M.D. [id number] US DUPLEX VENOUS LEGS BILATE RALon 02-12-2025 US DUPLEX VENOUS LEGS BILATERAL Normal [facility] ALCOHOL, MEDICALon ALCOHOL MEDICAL < Normal <10.0 [facility] Comment on above: Result Comment: Alco hol cutoff: <10.00 mg/dL = None Detected Performed By: #### 4 5033 #### LAB [address] [address] Jack Mendoza M.D. [id number] AMMONIAon 02-11-2025 AMMONIA 39 micromol/L Normal [facility] Comment on above: Performed By: #### 4 5060 #### LAB [address] [address] Jack Mendoza M.D. [id number] BLOOD CULTURE AEROBIC/ANAERO BICon 02-11-2025 BLOOD CULTURE AEROBIC/ANAEROBIC BLOOD CULTURE No Growth after 5 days Normal [facility] Comment on above: Performed By: #### 4 4014 #### LAB [address] [address] Jack Mendoza M.D. [id number] BLOOD CULTURE AEROBIC/ANAEROBIC BLOOD CULTURE STAPHYLOCOCCUS HAEMOLYTICUS Staphylococcus haemolyticus Sets Positive [1] of [2] GRAM STAIN RESULT BC Gram Positive Cocci in clusters Abnormal [facility] Comment on above: Performed By: #### 4 4014 #### LAB [address] [address] Jack Mendoza M.D. [id number] [address] [place] [address] Venancio Richardson M.D. [id number] BLOOD CULTURE ID PCRon 02-11 BLOOD CULTURE ID PCR Abnormal Not Detected [facility] Comment on above: Performed By: #### L [id number] #### LAB [address] [address] Jack Mendoza M.D. [id number] CBC WITH AUTO DIFFERENTIALon 02-11-2025 AUTO NRBC 0.0 % Normal [facility] Comment on above: Order Comment: Micro cytic, hypochromic anemia with erythrocytosis. The finding is commonly caused by thalassemia or other hemoglobinopathy with or without associated iron deficiency. Less commonly, it can be due to secondary erythrocytosis due to a chronic disease or a bone marrow disorder such as primary erythrocytosis (polycythemia vera). Performed By: #### L [id number] #### LAB [address] [address] Jack Mendoza M.D. [id number] AUTO NRBC ABS COUNT 0.00 K/mcL Normal 0.00-0.00 [facility] Comment on above: Order Comment: Micro cytic, hypochromic anemia with erythrocytosis. The finding is commonly caused by thalassemia or other hemoglobinopathy with or without associated iron deficiency. Less commonly, it can be due to secondary erythrocytosis due to a chronic disease or a bone marrow disorder such as primary erythrocytosis (polycythemia vera). Performed By: #### L [id number] ####[facility] [address] [address] Jack Mendoza M.D. [id number] BASOPHILS ABSOLUTE COUNT 0.03 K/mcL Normal 0.00-0.30 [facility] Comment on above: Order Comment: Micro cytic, hypochromic anemia with erythrocytosis. The finding is commonly caused by thalassemia or other hemoglobinopathy with or without associated iron deficiency. Less commonly, it can be due to secondary erythrocytosis due to a chronic disease or a bone marrow disorder such as primary erythrocytosis (polycythemia vera). Performed By: #### L [id number] ####[facility] [address] [address] Jack Mendoza M.D. [id number] Basophils/100 WBC (Bld) 0.4 % Normal [facility] Comment on above: Order Comment: Micro cytic, hypochromic anemia with erythrocytosis. The finding is commonly caused by thalassemia or other hemoglobinopathy with or without associated iron deficiency. Less commonly, it can be due to secondary erythrocytosis due to a chronic disease or a bone marrow disorder such as primary erythrocytosis (polycythemia vera). Performed By: #### L [id number] ####[facility] [address] [address] Jack Mendoza M.D. [id number] Eosinophils (Bld) [#/Vol] 0.08 10*3/uL Normal 0.00-0.50 [facility] Comment on above: Order Comment: Micro cytic, hypochromic anemia with erythrocytosis. The finding is commonly caused by thalassemia or other hemoglobinopathy with or without associated iron deficiency. Less commonly, it can be due to secondary erythrocytosis due to a chronic disease or a bone marrow disorder such as primary erythrocytosis (polycythemia vera). Performed By: #### L [id number] ####[facility] [address] [address] Jack Mendoza M.D. [id number] Eosinophils/100 WBC (Bld) 1.1 % Normal [facility] Comment on above: Order Comment: Micro cytic, hypochromic anemia with erythrocytosis. The finding is commonly caused by thalassemia or other hemoglobinopathy with or without associated iron deficiency. Less commonly, it can be due to secondary erythrocytosis due to a chronic disease or a bone marrow disorder such as primary erythrocytosis (polycythemia vera). Performed By: #### L [id number] ####[facility] [address] [address] Jack Mendoza M.D. [id number] Erythrocyte distribution width (RBC) [Ratio] 20.6 % High 11.6-14.8 [facility] Comment on above: Order Comment: Micro cytic, hypochromic anemia with erythrocytosis. The finding is commonly caused by thalassemia or other hemoglobinopathy with or without associated iron deficiency. Less commonly, it can be due to secondary erythrocytosis due to a chronic disease or a bone marrow disorder such as primary erythrocytosis (polycythemia vera). Performed By: #### L [id number] ####[facility] [address] [address] Jack Mendoza M.D. [id number] Hematocrit (Bld) [Volume fraction] 40.4 % Low 41.0-53.0 [facility] Comment on above: Order Comment: Micro cytic, hypochromic anemia with erythrocytosis. The finding is commonly caused by thalassemia or other hemoglobinopathy with or without associated iron deficiency. Less commonly, it can be due to secondary erythrocytosis due to a chronic disease or a bone marrow disorder such as primary erythrocytosis (polycythemia vera). Performed By: #### L [id number] ####[facility] [address] [address] Jack Mendoza M.D. [id number] Hemoglobin (Bld) [Mass/Vol] 12.2 g/dL Low 13.5-17.5 [facility] Comment on above: Order Comment: Micro cytic, hypochromic anemia with erythrocytosis. The finding is commonly caused by thalassemia or other hemoglobinopathy with or without associated iron deficiency. Less commonly, it can be due to secondary erythrocytosis due to a chronic disease or a bone marrow disorder such as primary erythrocytosis (polycythemia vera). Performed By: #### L [id number] ####[facility] [address] [address] Jack Mendoza M.D. [id number] IG ABSOLUTE 0.03 K/mcL Normal 0.00-0.30 [facility] Comment on above: Order Comment: Micro cytic, hypochromic anemia with erythrocytosis. The finding is commonly caused by thalassemia or other hemoglobinopathy with or without associated iron deficiency. Less commonly, it can be due to secondary erythrocytosis due to a chronic disease or a bone marrow disorder such as primary erythrocytosis (polycythemia vera). Performed By: #### L [id number] ####[facility] [address] [address] Jack Mendoza M.D. [id number] IG PERCENT 0.40 % Normal [facility] Comment on above: Order Comment: Micro cytic, hypochromic anemia with erythrocytosis. The finding is commonly caused by thalassemia or other hemoglobinopathy with or without associated iron deficiency. Less commonly, it can be due to secondary erythrocytosis due to a chronic disease or a bone marrow disorder such as primary erythrocytosis (polycythemia vera). Result Comment: The IG parameter is the percentage of metamyelocytes, myelocytes and promyelocytes. An immature granulocyte count (IG) of 1% or more suggests the possibility of infection, an IG count of 3% is very likely related to an infection. Performed By: #### L [id number] ####[facility] [address] [address] Jack Mendoza M.D. [id number] Lymphocytes (Bld) [#/Vol] 1.28 10*3/uL Normal 0.90-4.00 [facility] Comment on above: Order Comment: Micro cytic, hypochromic anemia with erythrocytosis. The finding is commonly caused by thalassemia or other hemoglobinopathy with or without associated iron deficiency. Less commonly, it can be due to secondary erythrocytosis due to a chronic disease or a bone marrow disorder such as primary erythrocytosis (polycythemia vera). Performed By: #### L [id number] ####[facility] [address] [address] Jack Mendoza M.D. [id number] Lymphocytes/100 WBC (Bld) 17.8 % Normal [facility] Comment on above: Order Comment: Micro cytic, hypochromic anemia with erythrocytosis. The finding is commonly caused by thalassemia or other hemoglobinopathy with or without associated iron deficiency. Less commonly, it can be due to secondary erythrocytosis due to a chronic disease or a bone marrow disorder such as primary erythrocytosis (polycythemia vera). Performed By: #### L [id number] ####[facility] [address] [address] Jack Mendoza M.D. [id number] MCH (RBC) [Entitic mass] 20.3 pg Low 26.0-34.0 [facility] Comment on above: Order Comment: Micro cytic, hypochromic anemia with erythrocytosis. The finding is commonly caused by thalassemia or other hemoglobinopathy with or without associated iron deficiency. Less commonly, it can be due to secondary erythrocytosis due to a chronic disease or a bone marrow disorder such as primary erythrocytosis (polycythemia vera). Performed By: #### L [id number] ####[facility] [address] [address] Jack Mendoza M.D. [id number] MCV (RBC) [Entitic vol] 67.3 fL Low 80.0-100.0 [facility] Comment on above: Order Comment: Micro cytic, hypochromic anemia with erythrocytosis. The finding is commonly caused by thalassemia or other hemoglobinopathy with or without associated iron deficiency. Less commonly, it can be due to secondary erythrocytosis due to a chronic disease or a bone marrow disorder such as primary erythrocytosis (polycythemia vera). Performed By: #### L [id number] ####[facility] [address] [address] Jack Mendoza M.D. [id number] MEAN CORPUSCULAR HEMOGLOBIN CONC 30.2 g/dL Low 31.0-37.0 [facility] Comment on above: Order Comment: Micro cytic, hypochromic anemia with erythrocytosis. The finding is commonly caused by thalassemia or other hemoglobinopathy with or without associated iron deficiency. Less commonly, it can be due to secondary erythrocytosis due to a chronic disease or a bone marrow disorder such as primary erythrocytosis (polycythemia vera). Performed By: #### L [id number] ####[facility] [address] [address] Jack Mendoza M.D. [id number] Monocytes (Bld) [#/Vol] 0.65 10*3/uL Normal 0.30-0.90 [facility] Comment on above: Order Comment: Micro cytic, hypochromic anemia with erythrocytosis. The finding is commonly caused by thalassemia or other hemoglobinopathy with or without associated iron deficiency. Less commonly, it can be due to secondary erythrocytosis due to a chronic disease or a bone marrow disorder such as primary erythrocytosis (polycythemia vera). Performed By: #### L [id number] ####[facility] [address] [address] Jack Mendoza M.D. [id number] Monocytes/100 WBC (Bld) 9.0 % Normal [facility] Comment on above: Order Comment: Micro cytic, hypochromic anemia with erythrocytosis. The finding is commonly caused by thalassemia or other hemoglobinopathy with or without associated iron deficiency. Less commonly, it can be due to secondary erythrocytosis due to a chronic disease or a bone marrow disorder such as primary erythrocytosis (polycythemia vera). Performed By: #### L [id number] ####[facility] [address] [address] Jack Mendoza M.D. [id number] NEUTROPHILS ABSOLUTE COUNT 5.13 K/mcL Normal 1.70-7.00 [facility] Comment on above: Order Comment: Micro cytic, hypochromic anemia with erythrocytosis. The finding is commonly caused by thalassemia or other hemoglobinopathy with or without associated iron deficiency. Less commonly, it can be due to secondary erythrocytosis due to a chronic disease or a bone marrow disorder such as primary erythrocytosis (polycythemia vera). Performed By: #### L [id number] ####[facility] [address] [address] Jack Mendoza M.D. [id number] Neutrophils/100 WBC (Bld) 71.3 % Normal [facility] Comment on above: Order Comment: Micro cytic, hypochromic anemia with erythrocytosis. The finding is commonly caused by thalassemia or other hemoglobinopathy with or without associated iron deficiency. Less commonly, it can be due to secondary erythrocytosis due to a chronic disease or a bone marrow disorder such as primary erythrocytosis (polycythemia vera). Result Comment: Tiffany pheral smear reviewed manually Performed By: #### L [id number] ####[facility] [address] [address] Jack Mendoza M.D. [id number] Platelet mean volume (Bld) [Entitic vol] 9.1 fL Low 9.4-12.4 [facility] Comment on above: Order Comment: Micro cytic, hypochromic anemia with erythrocytosis. The finding is commonly caused by thalassemia or other hemoglobinopathy with or without associated iron deficiency. Less commonly, it can be due to secondary erythrocytosis due to a chronic disease or a bone marrow disorder such as primary erythrocytosis (polycythemia vera). Performed By: #### L [id number] ####[facility] [address] [address] Jack Mendoza M.D. [id number] Platelets (Bld) [#/Vol] 171 10*3/uL Normal 150-400 [facility] Comment on above: Order Comment: Micro cytic, hypochromic anemia with erythrocytosis. The finding is commonly caused by thalassemia or other hemoglobinopathy with or without associated iron deficiency. Less commonly, it can be due to secondary erythrocytosis due to a chronic disease or a bone marrow disorder such as primary erythrocytosis (polycythemia vera). Performed By: #### L [id number] ####[facility] [address] [place], [place] [address] Jack Mendoza M.D. [id number] RBC (Bld) [#/Vol] 6.00 10*6/uL High 4.50-5.90 [facility] Comment on above: Order Comment: Micro cytic, hypochromic anemia with erythrocytosis. The finding is commonly caused by thalassemia or other hemoglobinopathy with or without associated iron deficiency. Less commonly, it can be due to secondary erythrocytosis due to a chronic disease or a bone marrow disorder such as primary erythrocytosis (polycythemia vera). Performed By: #### L [id number] ####[facility] [address] [place], [place] [address] Jack Mendoza M.D. [id number] WBC (Bld) [#/Vol] 7.20 10*3/uL Normal 4.50-11.00 [facility] Comment on above: Order Comment: Micro cytic, hypochromic anemia with erythrocytosis. The finding is commonly caused by thalassemia or other hemoglobinopathy with or without associated iron deficiency. Less commonly, it can be due to secondary erythrocytosis due to a chronic disease or a bone marrow disorder such as primary erythrocytosis (polycythemia vera). Performed By: #### L [id number] ####[facility] [address] [place], [place] [address] Jack Mendoza M.D. [id number] COMPREHENSIVE METABOLIC PANE [facility] 02-11-2025 Albumin [Mass/Vol] 3.6 g/dL Normal 3.2-5.2 [facility] Comment on above: Order Comment: [facility] has implemented the eGFR calculation approach that does not have a coefficient for race that conforms to the NKF-ASN Task Force Recommendations. Performed By: #### 4 6126 ####[facility] [address] [place], [place] [address] Jack Mendoza M.D. [id number] ALP [Catalytic activity/Vol] 77 U/L Normal 40-150 [facility] Comment on above: Order Comment: [facility] has implemented the eGFR calculation approach that does not have a coefficient for race that conforms to the NKF-ASN Task Force Recommendations. Performed By: #### 4 6126 #### LAB [address] [address] Jack Mendoza M.D. [id number] ALT [Catalytic activity/Vol] 9 U/L Normal 0-50 U/L [facility] Comment on above: Order Comment: [facility] has implemented the eGFR calculation approach that does not have a coefficient for race that conforms to the NKF-ASN Task Force Recommendations. Performed By: #### 4 6126 #### LAB [address] [address] Jack Mendoza M.D. [id number] Anion gap [Moles/Vol] 22 mmol/L High 10-20 [facility] Comment on above: Order Comment: [facility] has implemented the eGFR calculation approach that does not have a coefficient for race that conforms to the NKF-ASN Task Force Recommendations. Performed By: #### 4 6126 #### [facility] [address] [address] Jack Mendoza M.D. [id number] AST [Catalytic activity/Vol] 24 U/L Normal 0-50 U/L [facility] Comment on above: Order Comment: [facility] has implemented the eGFR calculation approach that does not have a coefficient for race that conforms to the NKF-ASN Task Force Recommendations. Performed By: #### 4 6126 #### LAB [address] [address] Jack Mendoza M.D. [id number] Bilirubin [Mass/Vol] 0.4 mg/dL Normal 0.0-1.3 [facility] Comment on above: Order Comment: [facility] has implemented the eGFR calculation approach that does not have a coefficient for race that conforms to the NKF-ASN Task Force Recommendations. Performed By: #### 4 6126 #### LAB [address] [address] Jack Mendoza M.D. [id number] Calcium [Mass/Vol] 8.9 mg/dL Normal 8.4-10.2 [facility] Comment on above: Order Comment: [facility] has implemented the eGFR calculation approach that does not have a coefficient for race that conforms to the NKF-ASN Task Force Recommendations. Performed By: #### 4 6126 #### [facility] [address] [address] Jack Mendoza M.D. [id number] Chloride [Moles/Vol] 100 mmol/L Normal 98-108 [facility] Comment on above: Order Comment: [facility] has implemented the eGFR calculation approach that does not have a coefficient for race that conforms to the NKF-ASN Task Force Recommendations. Performed By: #### 4 6126 #### LAB [address] [address] Jack Mendoza M.D. [id number] Creatinine [Mass/Vol] 5.66 mg/dL High 0.50-1.30 [facility] Comment on above: Order Comment: [facility] has implemented the eGFR calculation approach that does not have a coefficient for race that conforms to the NKF-ASN Task Force Recommendations. Performed By: #### 4 6126 #### [facility] [address] [address] Jack Mendoza M.D. [id number] EGFR 11 mL/min/1.73 m2 Low >=60 [facility] Comment on above: Order Comment: [facility] has implemented the eGFR calculation approach that does not have a coefficient for race that conforms to the NKF-ASN Task Force Recommendations. Result Comment: Ashley mated GFR was calculated using the 2020 CKD-EPI creatinine equation. Performed By: #### 4 6126 #### [facility] [address] [address] Jack Mendoza M.D. [id number] Glucose [Mass/Vol] 98 mg/dL Normal 65-99 [facility] Comment on above: Order Comment: [facility] has implemented the eGFR calculation approach that does not have a coefficient for race that conforms to the NKF-ASN Task Force Recommendations. Performed By: #### 4 6126 #### LAB [address] [id number] Jack Mendoza M.D. [id number] HCO3 (Bld) [Moles/Vol] 20 mmol/L Low 21-32 [facility] Comment on above: Order Comment: [facility] has implemented the eGFR calculation approach that does not have a coefficient for race that conforms to the NKF-ASN Task Force Recommendations. Performed By: #### 4 6126 #### [facility] [address] [address] Jack Mendoza M.D. [id number] Potassium [Moles/Vol] 7.6 mmol/L Off scale high 3.5-5.1 [facility] Comment on above: Order Comment: [facility] has implemented the eGFR calculation approach that does not have a coefficient for race that conforms to the NKF-ASN Task Force Recommendations. Performed By: #### 4 6126 #### LAB [address] [address] Jack Mendoza M.D. [id number] Protein [Mass/Vol] 8.7 g/dL High 6.0-8.0 [facility] Comment on above: Order Comment: [facility] has implemented the eGFR calculation approach that does not have a coefficient for race that conforms to the NKF-ASN Task Force Recommendations. Performed By: #### 4 6126 #### LAB [address] [address] Jack Mendoza M.D. [id number] Sodium [Moles/Vol] 134 mmol/L Low 135-145 [facility] Comment on above: Order Comment: [facility] has implemented the eGFR calculation approach that does not have a coefficient for race that conforms to the NKF-ASN Task Force Recommendations. Performed By: #### 4 6126 #### LAB [address] [address] Jack Mendoza M.D. [id number] Urea nitrogen [Mass/Vol] 98 mg/dL High 8-25 [facility] Comment on above: Order Comment: [facility] has implemented the eGFR calculation approach that does not have a coefficient for race that conforms to the NKF-ASN Task Force Recommendations. Performed By: #### 4 6126 #### LAB [address] [address] Jack Mendoza M.D. [id number] Urea nitrogen/Creatinine [Mass ratio] 17.3 mg/mg Normal 10.0-20.0 [facility] Comment on above: Order Comment: [facility] has implemented the eGFR calculation approach that does not have a coefficient for race that conforms to the NKF-ASN Task Force Recommendations. Performed By: #### 4 6126 #### LAB [address] [address] Jack Mendoza M.D. [id number] CT HEAD OR BRAIN WITHOUT CON TRASTon 02-11-2025 CT HEAD OR BRAIN WITHOUT CONTRAST Normal [facility] Comment on above: Order Comment: Injur y/Trauma or Illness?:Illness/OtherHow long have you had these symptoms (acute/chronic)?:AcuteReason for exam?:AMSType of Exam?:InitialAdditional signs and symptoms?:c/o Altered mental status. Patient was found wondering around naked DRUGS OF ABUSE SCREEN, URINE on 02-11-2025 AMPHETAMINE SCREEN, URINE Not detected Normal None Detected [facility] Comment on above: Order Comment: Scree n results should be used for treatment purposes only.Specimen will be kept for 2 weeks, if the sample is adequate. Confirmation testing can be initiated by calling the lab within 2 weeks. Result Comment: Urin e Amphetamine Cutoff: < 1000 ng/mL = None Detected Performed By: #### 4 6965 #### LAB [address] [address] Jack Mendoza M.D. [id number] BARBITURATE SCREEN URINE Not detected Normal None Detected [facility] Comment on above: Order Comment: Scree n results should be used for treatment purposes only.Specimen will be kept for 2 weeks, if the sample is adequate. Confirmation testing can be initiated by calling the lab within 2 weeks. Result Comment: Urin e Barbiturates Cutoff: < 200 ng/mL = None Detected Performed By: #### 4 6965 ####[facility] LAB [address] [address] Jack Mendoza M.D. [id number] BENZODIAZEPINE SCREEN, URINE Positive Abnormal None Detected [facility] Comment on above: Order Comment: Scree n results should be used for treatment purposes only.Specimen will be kept for 2 weeks, if the sample is adequate. Confirmation testing can be initiated by calling the lab within 2 weeks. Result Comment: Urin e Benzodiazepine Cutoff: < 200 ng/mL = None Detected Performed By: #### 4 6965 #### LAB [address] [address] Jack Mendoza M.D. [id number] BUPRENORPHINE, URINE Positive Abnormal None Detected [facility] Comment on above: Order Comment: Scree n results should be used for treatment purposes only.Specimen will be kept for 2 weeks, if the sample is adequate. Confirmation testing can be initiated by calling the lab within 2 weeks. Result Comment: Urin e Buprenorphine Cutoff: < 5 ng/mL = None Detected Performed By: #### 4 6965 ####[facility] LAB [address] [address] Jack eMndoza M.D. [id number] CANNABINOID SCREEN URINE Not detected Normal None Detected [facility] Comment on above: Order Comment: Scree n results should be used for treatment purposes only.Specimen will be kept for 2 weeks, if the sample is adequate. Confirmation testing can be initiated by calling the lab within 2 weeks. Result Comment: Urin e Cannabinoids Cutoff: < 50 ng/mL = None Detected Performed By: #### 4 6965 ####[facility] LAB [address] [address] Jack Mendoza M.D. [id number] COCAINE, SCREEN URINE Not detected Normal None Detected [facility] Comment on above: Order Comment: Scree n results should be used for treatment purposes only.Specimen will be kept for 2 weeks, if the sample is adequate. Confirmation testing can be initiated by calling the lab within 2 weeks. Result Comment: Urin e Cocaine Cutoff: < 300 ng/mL = None Detected Performed By: #### 4 6965 #### LAB [address] [address] Jack Mendoza M.D. [id number] FENTANYL, URINE Not detected Normal None Detected [facility] Comment on above: Order Comment: Scree n results should be used for treatment purposes only.Specimen will be kept for 2 weeks, if the sample is adequate. Confirmation testing can be initiated by calling the lab within 2 weeks. Result Comment: Urin e Fentanyl Cutoff: < 1 ng/mL = None Detected Performed By: #### 4 6965 ####[facility] LAB [address] [address] Jack Mendoza M.D. [id number] METHADONE SCREEN, URINE Not detected Normal None Detected [facility] Comment on above: Order Comment: Scree n results should be used for treatment purposes only.Specimen will be kept for 2 weeks, if the sample is adequate. Confirmation testing can be initiated by calling the lab within 2 weeks. Result Comment: Urin e Methadone Cutoff: < 300 ng/mL = None Detected Performed By: #### 4 6965 ####[facility] LAB [address] [address] Jack Mendoza M.D. [id number] OPIATE SCREEN URINE Not detected Normal None Detected [facility] Comment on above: Order Comment: Scree n results should be used for treatment purposes only.Specimen will be kept for 2 weeks, if the sample is adequate. Confirmation testing can be initiated by calling the lab within 2 weeks. Result Comment: Urin e Opiates Cutoff: < 300 ng/mL = None Detected Performed By: #### 4 6965 ####[facility] LAB [address] [address] Jack Mendoza M.D. [id number] OXYCODONE SCREEN, URINE Not detected Normal None Detected [facility] Comment on above: Order Comment: Scree n results should be used for treatment purposes only.Specimen will be kept for 2 weeks, if the sample is adequate. Confirmation testing can be initiated by calling the lab within 2 weeks. Result Comment: Urin e Oxycodone Cutoff: < 100 ng/mL = None Detected Performed By: #### 4 6965 ####[facility] LAB [address] [address] Jack Mendoza M.D. [id number] H AND Mike 02-11-2025 H AND P Normal [facility] HEMOGLOBIN A1Con 02-11-2025 Glucose [Mass/Vol] 131 mg/dL High 74-114 [facility] Comment on above: Performed By: #### 4 8202 ####[facility] LAB [address] [address] Jack Mendoza M.D. [id number] HbA1c (Bld) [Mass fraction] 6.2 % High 4.2-5.6 [facility] Comment on above: Performed By: #### 4 8202 ####[facility] LAB [address] [address] Jack Mendoza M.D. [id number] LACTIC ACID, PLASMAon 2024 LACTIC ACID, PLASMA 1.1 mmol/L Normal 0.6-2.0 [facility] Comment on above: Performed By: #### 4 6053 ####[facility] LAB [address] [address] Jack Mendoza M.D. [id number] MORPHOLOGYon 02-11-2025 OVAL SCAN Moderate Normal [facility] Comment on above: Performed By: #### L AB295 ####[facility] LAB [address] [address] Jack Mendoza M.D. [id number] PLATELET ESTIMATE Normal Normal Normal [facility] Comment on above: Performed By: #### L AB295 ####[facility] LAB [address] [address] Jack Mendoza M.D. [id number] POLY SCAN Few Normal [facility] Comment on above: Performed By: #### L AB295 ####[facility] [address] [address] Jack Mendoza M.D. [id number] RBC MORPH SCAN See Comment [facility] Comment on above: Result Comment: RBC Indices confirmed with manual peripheral smear review. Performed By: #### L AB295 ####[facility] [address] [address] Jack Mendoza M.D. [id number] TARGET CELL SCAN Few [facility] Comment on above: Performed By: #### L AB295 ####[facility] LAB [address] [address] Jack Mendoza M.D. [id number] POC ARTERIAL BLOOD GAS PANEL -[facility] 02-11-2025 [id number] 43.1 mm Hg [facility] Comment on above: Performed By: #### 4 8716 ####[facility] LAB [address] [address] Jack Mendoza M.D. [id number] BASE EXCESS, ARTERIAL -6.5 Low -2.0-2.0 [facility] Comment on above: Performed By: #### 4 8716 ####[facility] LAB [address] [address] Jack Mendoza M.D. [id number] FIO2 32 [facility] Comment on above: Performed By: #### 4 8716 ####[facility] LAB [address] [address] Jack Mendoza M.D. [id number] HCO3 (Bld) [Moles/Vol] 21.5 mmol/L Low 22.0-26.0 [facility] Comment on above: Performed By: #### 4 8716 ####[facility] LAB [address] [address] Jack Mendoza M.D. [id number] Hematocrit (Bld) [Volume fraction] 37.6 % Low 41.0-53.0 [facility] Comment on above: Performed By: #### 4 8716 ####[facility] [address] [address] Jack Mendoza M.D. [id number] Hemoglobin (Bld) [Mass/Vol] 12.3 g/dL Low 13.5-17.5 [facility] Comment on above: Performed By: #### 4 8716 ####[facility] [address] [address] Jack Mendoza M.D. [id number] LITER FLOW 3 Normal [facility] Comment on above: Performed By: #### 4 8716 #### LAB [address] [address] Jack Mendoza M.D. [id number] Oxygen saturation in Blood 98.2 % Normal 92.0-99.0 [facility] Comment on above: Performed By: #### 4 8716 ####[facility] LAB [address] [address] Jack Mendoza M.D. [id number] PCO2 ARTERIAL 52.5 mm Hg High 35.0-45.0 [facility] Comment on above: Performed By: #### 4 8716 #### LAB [address] [address] Jack Mendoza M.D. [id number] PH ARTERIAL 7.22 Low 7.35-7.45 [facility] Comment on above: Performed By: #### 4 8716 #### LAB [address] [address] Jack Mendoza M.D. [id number] PO2 ARTERIAL 116 mm Hg High 80-100 [facility] Comment on above: Performed By: #### 4 8716 #### LAB [address] [address] Jack Mendoza M.D. [id number] SPECIMEN SOURCE RADIANCE Brachial, right Normal [facility] Comment on above: Performed By: #### 4 8716 ####[facility] LAB [address] [address] Jack Mendoza M.D. [id number] POC GLUCOSE - [facility] 025 Glucose [Mass/Vol] 110 mg/dL [address] Comment on above: Performed By: #### 4 6932 #### LAB [address] [address] Jack Mendoza M.D. [id number] Glucose [Mass/Vol] 114 mg/dL [address] Comment on above: Performed By: #### 4 6932 #### LAB [address] [place], [place] [address] Jack Mendoza M.D. [id number] Glucose [Mass/Vol] 100 mg/dL High 65-99 [facility] Comment on above: Performed By: #### 4 6932 #### LAB [address] [id number] Jack Mendoza M.D. [id number] POTASSIUM LEVELon 02-11-2025 Potassium [Moles/Vol] 5.9 mmol/L High 3.5-5.1 [facility] Comment on above: Performed By: #### 4 6351 #### LAB [address] [address] Jack Mendoza M.D. [id number] TRIGLYCERIDESon 02-11-2025 Triglyceride [Mass/Vol] 74 mg/dL Normal 30-150 [facility] Comment on above: Result Comment: [place] [employer] [employer]olesterol [employer] Guidelines: TriglycerideNormal: <150 mg/dLBorderline High: 150-199 mg/dLHigh: 200-499 mg/dLVery High: greater than or equal to 500 mg/dL Performed By: #### 4 6606 #### LAB [address] [address] Jack Mendoza M.D. [id number] TROPONIN X 2 (NOW AND REPEAT IN 2 HOURS)on 02-11-2025 TROPONIN T DELTA CHANGE INTERPRETATION Delta troponin requires at least 2 hours between collections. Normal [facility] Comment on above: Performed By: #### 4 6608 #### LAB [address] [address] Jack Mendoza M.D. [id number] TROPONIN T NG/L 22 ng/L Normal <=22 [facility] Comment on above: Performed By: #### 4 6608 #### LAB [address] [address] Jack Mendoza M.D. [id number] BASELINE TROPONIN T NG/L 16 ng/L Normal <=22 [facility] Comment on above: Performed By: #### 4 6608 #### LAB [address] [address] Jack Mendoza M.D. [id number] TROPONIN T INTERPRETATION Normal Normal [facility] Comment on above: Performed By: #### 4 6608 #### LAB [address] [address] Jack Mendoza M.D. [id number] TSH WITH REFLEX FREE T4on TSH Qn 1.42 m[IU]/L Normal 0.27-4.20 [facility] Comment on above: Performed By: #### 4 6612 #### LAB [address] [address] Jack Mendoza M.D. [id number] URINALYSISon 02-11-2025 AMORPHOUS CRYSTALS Few Abnormal None Seen , Rare [facility] Comment on above: Order Comment: Micro scopic examination is performed on all urinalysis samples and only positive findings are reported. The test for blood on the chemical analytic portion of urinalysis may also be positive due to hemoglobinuria and myoglobinuria and if red blood cells are present they are quantified by microscopic examination. Performed By: #### 4 6625 #### LAB [address] [address] Jack Mendoza M.D. [id number] BACTERIA, URINE None Seen Normal None Seen [facility] Comment on above: Order Comment: Micro scopic examination is performed on all urinalysis samples and only positive findings are reported. The test for blood on the chemical analytic portion of urinalysis may also be positive due to hemoglobinuria and myoglobinuria and if red blood cells are present they are quantified by microscopic examination. Performed By: #### 4 6625 #### LAB [address] [address] Jack Mendoza M.D. [id number] BILIRUBIN, URINE Negative Normal Negative [facility] Comment on above: Order Comment: Micro scopic examination is performed on all urinalysis samples and only positive findings are reported. The test for blood on the chemical analytic portion of urinalysis may also be positive due to hemoglobinuria and myoglobinuria and if red blood cells are present they are quantified by microscopic examination. Performed By: #### 4 6625 #### LAB [address] [address] Jack Mendoza M.D. [id number] BLOOD, URINE Negative Normal Negative [facility] Comment on above: Order Comment: Micro scopic examination is performed on all urinalysis samples and only positive findings are reported. The test for blood on the chemical analytic portion of urinalysis may also be positive due to hemoglobinuria and myoglobinuria and if red blood cells are present they are quantified by microscopic examination. Performed By: #### 4 6625 #### LAB [address] [address] Jack Mendoza M.D. [id number] Clarity (U) Clear Normal Clear [facility] Comment on above: Order Comment: Micro scopic examination is performed on all urinalysis samples and only positive findings are reported. The test for blood on the chemical analytic portion of urinalysis may also be positive due to hemoglobinuria and myoglobinuria and if red blood cells are present they are quantified by microscopic examination. Performed By: #### 4 6625 #### LAB [address] [address] Jack Mendoza M.D. [id number] Color (U) Yellow Normal Colorless, Yellow [facility] Comment on above: Order Comment: Micro scopic examination is performed on all urinalysis samples and only positive findings are reported. The test for blood on the chemical analytic portion of urinalysis may also be positive due to hemoglobinuria and myoglobinuria and if red blood cells are present they are quantified by microscopic examination. Performed By: #### 4 6625 #### LAB [address] [id number] Jack Mendoza M.D. [id number] Glucose Ql (U) Negative Normal Negative [facility] Comment on above: Order Comment: Micro scopic examination is performed on all urinalysis samples and only positive findings are reported. The test for blood on the chemical analytic portion of urinalysis may also be positive due to hemoglobinuria and myoglobinuria and if red blood cells are present they are quantified by microscopic examination. Performed By: #### 4 6625 #### LAB [address] [address] Jack Mendoza M.D. [id number] Hyaline casts LM Ql (Urine sed) 11-20 Abnormal 0-2 [facility] Comment on above: Order Comment: Micro scopic examination is performed on all urinalysis samples and only positive findings are reported. The test for blood on the chemical analytic portion of urinalysis may also be positive due to hemoglobinuria and myoglobinuria and if red blood cells are present they are quantified by microscopic examination. Performed By: #### 4 6625 #### LAB [address] [address] Jack Mendoza M.D. [id number] Ketones Ql (U) Negative Normal Negative [facility] Comment on above: Order Comment: Micro scopic examination is performed on all urinalysis samples and only positive findings are reported. The test for blood on the chemical analytic portion of urinalysis may also be positive due to hemoglobinuria and myoglobinuria and if red blood cells are present they are quantified by microscopic examination. Performed By: #### 4 6625 #### LAB [address] [address] Jack Mendoza M.D. [id number] Leukocyte esterase Test strip Ql (U) Negative Normal Negative [facility] Comment on above: Order Comment: Micro scopic examination is performed on all urinalysis samples and only positive findings are reported. The test for blood on the chemical analytic portion of urinalysis may also be positive due to hemoglobinuria and myoglobinuria and if red blood cells are present they are quantified by microscopic examination. Performed By: #### 4 6625 #### LAB [address] [address] Jack Mendoza M.D. [id number] NITRITE, URINE Negative Normal Negative [facility] Comment on above: Order Comment: Micro scopic examination is performed on all urinalysis samples and only positive findings are reported. The test for blood on the chemical analytic portion of urinalysis may also be positive due to hemoglobinuria and myoglobinuria and if red blood cells are present they are quantified by microscopic examination. Performed By: #### 4 6625 #### LAB [address] [address] Jack Mendoza M.D. [id number] pH (U) 5.5 [pH] Normal 5.0-7.0 [facility] Comment on above: Order Comment: Micro scopic examination is performed on all urinalysis samples and only positive findings are reported. The test for blood on the chemical analytic portion of urinalysis may also be positive due to hemoglobinuria and myoglobinuria and if red blood cells are present they are quantified by microscopic examination. Performed By: #### 4 6625 ####[facility] [address] [address] Jack Mendoza M.D. [id number] PROTEIN, URINE Negative Normal Negative [facility] Comment on above: Order Comment: Micro scopic examination is performed on all urinalysis samples and only positive findings are reported. The test for blood on the chemical analytic portion of urinalysis may also be positive due to hemoglobinuria and myoglobinuria and if red blood cells are present they are quantified by microscopic examination. Performed By: #### 4 6625 #### LAB [address] [address] Jack Mendoza M.D. [id number] RBC LM.HPF (Urine sed) [#/Area] 1 /[HPF] Normal 0-3 [facility] Comment on above: Order Comment: Micro scopic examination is performed on all urinalysis samples and only positive findings are reported. The test for blood on the chemical analytic portion of urinalysis may also be positive due to hemoglobinuria and myoglobinuria and if red blood cells are present they are quantified by microscopic examination. Performed By: #### 4 6625 ####[facility] [address] [id number] Jack Mendoza M.D. [id number] Specific gravity (U) [Rel density] 1.014 Normal 1.005-1.025 [facility] Comment on above: Order Comment: Micro scopic examination is performed on all urinalysis samples and only positive findings are reported. The test for blood on the chemical analytic portion of urinalysis may also be positive due to hemoglobinuria and myoglobinuria and if red blood cells are present they are quantified by microscopic examination. Performed By: #### 4 6625 #### LAB [address] [id number] Jack Mendoza M.D. [id number] TRANSITIONAL EPITHELIAL < Normal 0-1 [facility] Comment on above: Order Comment: Micro scopic examination is performed on all urinalysis samples and only positive findings are reported. The test for blood on the chemical analytic portion of urinalysis may also be positive due to hemoglobinuria and myoglobinuria and if red blood cells are present they are quantified by microscopic examination. Performed By: #### 4 6625 #### LAB [address] [address] Jack Mendoza M.D. [id number] UROBILINOGEN, URINE <2.0 Normal <2.0 [facility] Comment on above: Order Comment: Micro scopic examination is performed on all urinalysis samples and only positive findings are reported. The test for blood on the chemical analytic portion of urinalysis may also be positive due to hemoglobinuria and myoglobinuria and if red blood cells are present they are quantified by microscopic examination. Performed By: #### 4 6625 #### LAB [address] [address] Jack Mendoza M.D. [id number] WBC, URINE < Normal 0-5 [facility] Comment on above: Order Comment: Micro scopic examination is performed on all urinalysis samples and only positive findings are reported. The test for blood on the chemical analytic portion of urinalysis may also be positive due to hemoglobinuria and myoglobinuria and if red blood cells are present they are quantified by microscopic examination. Performed By: #### 4 6625 #### LAB [address] [address] Jack Mendoza M.D. [id number] US RENAL AND BLADDERon 02-11 US RENAL AND BLADDER Normal [facility] Comment on above: Order Comment: Injur y/Trauma or Illness?:Illness/OtherHow long have you had these symptoms (acute/chronic)?:AcuteReason for exam?:akiHistory of cancer?:uSurgeries, chemotherapy, or radiation?:uType of Exam?:InitialAdditional signs and symptoms?:none VOLATILE PANELon 02-11-2025 ACETONE QUANT, BLOOD <10 Normal [facility] Comment on above: Order Comment: This Gas Chromatography test was developed and its performance characteristics determined by [facility] at [facility]. It has not been cleared or approved by the FDA. The laboratory is regulated under CLIA as qualified to perform high-complexity testing. This test is used for clinical purposes. It should not be regarded as investigational or for research.Test performed by:[facility] [id number] [place] [address] Performed By: #### 4 6683 #### LAB [address] [place] [address] Jack Mendoza M.D. [id number] ACETONE, BLOOD Not detected Normal Not Detected [facility] Comment on above: Order Comment: This Gas Chromatography test was developed and its performance characteristics determined by [facility]. It has not been cleared or approved by the FDA. The laboratory is regulated under CLIA as qualified to perform high-complexity testing. This test is used for clinical purposes. It should not be regarded as investigational or for research.Test performed by:[facility] [id number] [place] [id number] Performed By: #### 4 6683 #### LAB [address] [place] [address] Jack Mendoza M.D. [id number] Ethanol [Mass/Vol] Not detected Normal Not Detected [facility] Comment on above: Order Comment: This Gas Chromatography test was developed and its performance characteristics determined by Toxicology Laboratory at [facility]. It has not been cleared or approved by the FDA. The laboratory is regulated under CLIA as qualified to perform high-complexity testing. This test is used for clinical purposes. It should not be regarded as investigational or for research.Test performed by:[facility] Reference [address] [place] [address] Performed By: #### 4 [id number] ####[facility] [address] [address] Jack Mendoza M.D. [id number] ETHANOL QUANT, BLOOD <10 Normal [facility] Comment on above: Order Comment: This Gas Chromatography test was developed and its performance characteristics determined by Toxicology Laboratory at [facility]. It has not been cleared or approved by the FDA. The laboratory is regulated under CLIA as qualified to perform high-complexity testing. This test is used for clinical purposes. It should not be regarded as investigational or for research.Test performed by:[facility] Reference [address] [place], [place] [id number] Performed By: #### 4 [id number] ####[facility] [address] [place] [address] Jack Mendoza M.D. [id number] ISOPROPANOL QUANT, BLOOD <10 Normal [facility] Comment on above: Order Comment: This Gas Chromatography test was developed and its performance characteristics determined by Toxicology Laboratory at [facility]. It has not been cleared or approved by the FDA. The laboratory is regulated under CLIA as qualified to perform high-complexity testing. This test is used for clinical purposes. It should not be regarded as investigational or for research.Test performed by:[facility] Reference [address] [place] [address] Performed By: #### 4 6683 ####[facility] [address] [place] [address] Jack Mendoza M.D. [id number] ISOPROPANOL, BLOOD Not detected Normal Not Detected [facility] Comment on above: Order Comment: This Gas Chromatography test was developed and its performance characteristics determined by Toxicology Laboratory at [facility]. It has not been cleared or approved by the FDA. The laboratory is regulated under CLIA as qualified to perform high-complexity testing. This test is used for clinical purposes. It should not be regarded as investigational or for research.Test performed by:[facility] Reference [address] [place], [place] [id number] Performed By: #### 4 6683 ####[facility] [address] [place], [place] [address] Jack Mendoza M.D. [id number] METHANOL QUANT, BLOOD <10 Normal [facility] Comment on above: Order Comment: This Gas Chromatography test was developed and its performance characteristics determined by Toxicology Laboratory at [facility]. It has not been cleared or approved by the FDA. The laboratory is regulated under CLIA as qualified to perform high-complexity testing. This test is used for clinical purposes. It should not be regarded as investigational or for research.Test performed by:[facility] Reference [address] [place] [address] Performed By: #### 4 6683 #### LAB [address] [address] Jack Mendoza M.D. [id number] METHANOL, BLOOD Not detected Normal Not Detected [facility] Comment on above: Order Comment: This Gas Chromatography test was developed and its performance characteristics determined by Toxicology Laboratory at [facility]. It has not been cleared or approved by the FDA. The laboratory is regulated under CLIA as qualified to perform high-complexity testing. This test is used for clinical purposes. It should not be regarded as investigational or for research.Test performed by:[facility] Reference [address] [place] [address] Performed By: #### 4 6683 #### LAB [address] [place], [place] [address] Jack Mendoza M.D. [id number] XR ABDOMEN /KUB/FLAT PLATE/1 VIEWon 02-11-2025 XR ABDOMEN /KUB/FLAT PLATE/1 VIEW [facility] Comment on above: Order Comment: Injur y/Trauma or Illness?:Illness/OtherHow long have you had these symptoms (acute/chronic)?:AcuteReason for exam?:OG PLACEMENTHistory of cancer?:uSurgeries, chemotherapy, or radiation?:uType of Exam?:InitialAdditional signs and symptoms?:. XR CHEST PA/APon 02-11-2025 XR CHEST PA/AP [facility] Comment on above: Order Comment: Injur y/Trauma or Illness?:Illness/OtherHow long have you had these symptoms (acute/chronic)?:AcuteReason for exam?:ETT PLACEMENTHistory of cancer?:uSurgeries, chemotherapy, or radiation?:uType of Exam?:InitialAdditional signs and symptoms?:. Order Comment: Injur y/Trauma or Illness?:Illness/OtherHow long have you had these symptoms (acute/chronic)?:AcuteReason for exam?:amsHistory of cancer?:uSurgeries, chemotherapy, or radiation?:uType of Exam?:InitialAdditional signs and symptoms?:. No Panel Informationon 12-21 [facility] Cecilia Gonzales DPM 12/23/2024 8:04 PM Wound Debridement Performed by: Cecilia Gonzales DPM Authorized by: Cecilia Gonzales DPM Consent Consent obtained? verbal Consent given by: patient Risks discussed? procedural risks discussed Debridement Details Performed by: physician Debridement type: surgical Level of debridement: subcutaneous tissue Post-debridement measurements Length (cm): 1 Width (cm): 1 Depth (cm): 0.2 Percent debrided: 100% Surface Area (cm^2): 0.79 Area Debrided (cm^2): 0.79 Volume (cm^3): 0.1 Tissue and other material debrided: subcutaneous tissue Devitalized tissue debrided: biofilm, fibrin and slough Instrument(s) utilized: curette and blade Bleeding: small Hemostasis obtained with: pressure Response to treatment: procedure was tolerated well [facility] Wound Debridementon 12-22-19 Cecilia Gonzales DPM 12/21/2024 10:11 PM Wound Debridement Performed by: Cecilia Gonzales DPM Authorized by: Cecilia Gonzales DPM Consent Consent obtained? verbal Consent given by: patient Risks discussed? procedural risks discussed Debridement Details Performed by: physician Debridement type: surgical Level of debridement: subcutaneous tissue Post-debridement measurements Length (cm): 1 Width (cm): 1 Depth (cm): 0.2 Percent debrided: 100% Surface Area (cm^2): 0.79 Area Debrided (cm^2): 0.79 Volume (cm^3): 0.1 Tissue and other material debrided: subcutaneous tissue Devitalized tissue debrided: biofilm, fibrin and slough Instrument(s) utilized: curette and blade Bleeding: small Hemostasis obtained with: pressure Response to treatment: procedure was tolerated well [facility] WOUND AEROBIC CULTUREon 10-21 WOUND AEROBIC CULTURE AEROBIC CULTURE Light Growth Normal Skin Sobeida GRAM STAIN RESULT Many WBC Rare Gram Positive Cocci Normal [facility] Comment on above: Order Comment: Origi jesu ordered as [facility] specimen; reordered as [facility] specimen [facility]. Performed By: #### 4 4060 ####[facility] [address] [place], [place] [address] Venancio Richardson M.D. [id number] XR FOOT RIGHT 3+ VIEWS (JEREMIAS DARSajan)on 11-09-2024 XR FOOT RIGHT 3+ VIEWS (STANDARD) Normal [facility] Comment on above: Order Comment: Injur y/Trauma or Illness?:Illness/OtherHow long have you had these symptoms (acute/chronic)?:ChronicReason for exam?:plantar medial ulcer probes down to boneHistory of cancer?:uSurgeries, chemotherapy, or radiation?:uType of Exam?:OngoingAdditional signs and symptoms?:u CBC Auto Differentialon Erythrocyte distribution width (RBC) [Entitic vol] 16.4 % High 11.6 - 14.8 % [facility] Hematocrit (Bld) [Volume fraction] 34.3 % Low 41.0 - 53.0 % [facility] Hemoglobin (Bld) [Mass/Vol] 10 g/dL Low 13.5 - 17.5 g/dL [facility] MCH (RBC) [Entitic mass] 20.1 pg Low 26.0 - 34.0 pg [facility] MCHC (RBC) [Mass/Vol] 29.2 g/dL Low 31.0 - 37.0 g/dL [facility] MCV (RBC) [Entitic vol] 68.9 fL Low 80.0 - 100.0 fL [facility] Nucleated RBC (Bld) [#/Vol] 0 10*3/uL [facility] Nucleated RBC/100 WBC (Bld) [Ratio] 0 % [facility] Platelets (Bld) [#/Vol] 107 10*3/uL Low [facility] RBC (Bld) [#/Vol] 4.98 10*6/uL [facility] WBC (Bld) [#/Vol] 4.11 10*3/uL Low [facility] CBC WITH AUTO DIFFERENTIALon 10-24-2024 AUTO NRBC 0.0 % Normal [facility] Comment on above: Performed By: #### L [id number] #### LAB [address] [address] Jack Mendoza M.D. [id number] AUTO NRBC ABS COUNT 0.00 K/mcL Normal 0.00-0.00 [facility] Comment on above: Performed By: #### L [id number] ####[facility] [address] [address] Jack Mendoza M.D. [id number] Erythrocyte distribution width (RBC) [Ratio] 16.4 % High 11.6-14.8 [facility] Comment on above: Performed By: #### L [id number] #### LAB [address] [address] Jack Mendoza M.D. [id number] Hematocrit (Bld) [Volume fraction] 34.3 % Low 41.0-53.0 [facility] Comment on above: Performed By: #### L [id number] ####[facility] [address] [address] Jack Mendoza M.D. [id number] Hemoglobin (Bld) [Mass/Vol] 10.0 g/dL Low 13.5-17.5 [facility] Comment on above: Performed By: #### L [id number] ####[facility] [address] [address] Jack Mendoza M.D. [id number] MCH (RBC) [Entitic mass] 20.1 pg Low 26.0-34.0 [facility] Comment on above: Performed By: #### L [id number] ####[facility] [address] [address] Jack Mendoza M.D. [id number] MCV (RBC) [Entitic vol] 68.9 fL Low 80.0-100.0 [facility] Comment on above: Performed By: #### L [id number] #### LAB [address] [address] Jack Mendoza M.D. [id number] MEAN CORPUSCULAR HEMOGLOBIN CONC 29.2 g/dL Low 31.0-37.0 [facility] Comment on above: Performed By: #### L [id number] ####[facility] [address] [address] Jack Mendoza M.D. [id number] Platelets (Bld) [#/Vol] 107 10*3/uL Low 150-400 [facility] Comment on above: Performed By: #### L [id number] ####[facility] [address] [address] Jack Mendoza M.D. [id number] RBC (Bld) [#/Vol] 4.98 10*6/uL Normal 4.50-5.90 [facility] Comment on above: Performed By: #### L [id number] #### LAB [address] [address] Jcak Mendoza M.D. [id number] WBC (Bld) [#/Vol] 4.11 10*3/uL Low 4.50-11.00 [facility] Comment on above: Performed By: #### L [id number] #### LAB [address] [place] [address] Jack Mendoza M.D. [id number] CBC and Diff Morphologyon Ovalocytes LM Ql (Bld) Many [facility] Platelets LM Ql (Bld) Decreased Abnormal Normal [facility] RBC morphology finding Nom (Bld) See Comment [facility] Comment on above: RBC Indices confirme d with manual peripheral smear review. Schistocytes Auto Ql (Bld) Few Abnormal See Comment [facility] Stomatocytes LM Ql (Bld) Few [facility] Target cells LM Ql (Bld) Moderate [facility] Disch Summon 10-24-2024 Disch Summ Normal [facility] MANUAL DIFFERENTIALon 2024 BASOPHILS - ABS (DIFF) 0.04 K/mcL Normal 0.00-0.30 [facility] Comment on above: Performed By: #### 4 [id number] #### LAB [address] [address] Jack Mendoza M.D. [id number] BASOPHILS - REL (DIFF) 0.9 % [facility] Comment on above: Performed By: #### 4 5463 #### LAB [address] [address] Jack Mendoza M.D. [id number] EOSINOPHILS - ABS (DIFF) 0.21 K/mcL Normal 0.00-0.50 [facility] Comment on above: Performed By: #### 4 5429 #### LAB [address] [address] Jack Mendoza M.D. [id number] EOSINOPHILS - REL (DIFF) 5.1 % [facility] Comment on above: Performed By: #### 4 9583 #### LAB [address] [address] Jack Mendoza M.D. [id number] LYMPHOCYTE ATYPICAL - REL (DIFF) 2.5 % [facility] Comment on above: Performed By: #### 4 7374 #### LAB [address] [address] Jack Mendoza M.D. [id number] LYMPHOCYTES - ABS (DIFF) 0.97 K/mcL Normal 0.90-4.00 [facility] Comment on above: Performed By: #### 4 5902 #### LAB [address] [address] Jack eMndoza M.D. [id number] LYMPHOCYTES - REL (DIFF) 21.2 % [facility] Comment on above: Performed By: #### 4 5176 #### LAB [address] [address] Jack Mendoza M.D. [id number] METAMYELOCYTES-REL (DIFF) 0.8 % [facility] Comment on above: Performed By: #### 4 3654 #### LAB [address] [address] Jack Mendoza M.D. [id number] MONOCYTES - ABS (DIFF) 0.24 K/mcL Low 0.30-0.90 [facility] Comment on above: Performed By: #### 4 5456 #### LAB [address] [address] Jack Mendoza M.D. [id number] MONOCYTES - REL (DIFF) 5.9 % Normal [facility] Comment on above: Performed By: #### 4 5456 #### LAB [address] [address] Jack Mendoza M.D. [id number] NEUTROPHILS - ABS (DIFF) 2.65 K/mcL Normal 1.70-7.00 [facility] Comment on above: Performed By: #### 4 5456 #### LAB [address] [address] Jack Mendoza M.D. [id number] NEUTROPHILS - REL (DIFF) 63.6 % Normal [facility] Comment on above: Performed By: #### 4 5456 #### LAB [address] [address] Jack Mendoza M.D. [id number] MORPHOLOGYon 10-24-2024 OVAL SCAN Many Normal [facility] Comment on above: Performed By: #### L [id number] ####[facility] [address] [address] Jack Mendoza M.D. [id number] PLATELET ESTIMATE Decreased Abnormal Normal [facility] Comment on above: Performed By: #### L [id number] ####[facility] [address] [address] Jack Mendoza M.D. [id number] RBC MORPH SCAN See Comment Normal [facility] Comment on above: Result Comment: RBC Indices confirmed with manual peripheral smear review. Performed By: #### L [id number] ####[facility] [address] [address] Jack Mendoza M.D. [id number] SCHISTO SCAN Few Abnormal See Comment [facility] Comment on above: Performed By: #### L [id number] ####[facility] [address] [place], [place] [address] Jack Mendoza M.D. [id number] STOMATOCYTES Few Normal [facility] Comment on above: Performed By: #### L [id number] ####[facility] [address] [place], [place] [address] Jack Mendoza M.D. [id number] TARGET CELL SCAN Moderate Normal [facility] Comment on above: Performed By: #### L [id number] ####[facility] [address], [place] [address] Jack Mendoza M.D. [id number] Manual Differential panel (B ld)on 10-24-2024 Basophils (Bld) [#/Vol] 0.04 10*3/uL [facility] Basophils/100 WBC (Bld) 0.9 % [facility] Eosinophils (Bld) [#/Vol] 0.21 10*3/uL [facility] Eosinophils/100 WBC (Bld) 5.1 % [facility] Lymphocytes (Bld) [#/Vol] 0.97 10*3/uL [facility] Lymphocytes/100 WBC (Bld) 21.2 % [facility] Metamyelocytes/100 WBC (Bld) 0.8 % [facility] Monocytes (Bld) [#/Vol] 0.24 10*3/uL Low [facility] Monocytes/100 WBC (Bld) 5.9 % [facility] Neutrophils (Bld) [#/Vol] 2.65 10*3/uL [facility] Neutrophils/100 WBC (Bld) 63.6 % [facility] Variant lymphocytes/100 WBC (Bld) 2.5 % [facility] No Panel Informationon 10-24 Interpretation and review of laboratory results Abnormal [facility] CBC Auto Differentialon Erythrocyte distribution width (RBC) [Entitic vol] 17.3 % High 11.6 - 14.8 % [facility] Hematocrit (Bld) [Volume fraction] 38 % Low 41.0 - 53.0 % [facility] Hemoglobin (Bld) [Mass/Vol] 11.4 g/dL Low 13.5 - 17.5 g/dL [facility] MCH (RBC) [Entitic mass] 20.7 pg Low 26.0 - 34.0 pg [facility] MCHC (RBC) [Mass/Vol] 30 g/dL Low 31.0 - 37.0 g/dL [facility] MCV (RBC) [Entitic vol] 68.8 fL Low 80.0 - 100.0 fL [facility] Nucleated RBC (Bld) [#/Vol] 0 10*3/uL [facility] Nucleated RBC/100 WBC (Bld) [Ratio] 0 % [facility] Platelet mean volume (Bld) [Entitic vol] 9.3 fL Low 9.4 - 12.4 fL [facility] Platelets (Bld) [#/Vol] 118 10*3/uL Low [facility] RBC (Bld) [#/Vol] 5.52 10*6/uL [facility] ealth WBC (Bld) [#/Vol] 5.5 10*3/uL [facility] alth CBC WITH AUTO DIFFERENTIALon 10-23-2024 AUTO NRBC 0.0 % Normal [facility] Comment on above: Performed By: #### L [id number] #### LAB [address] [address] Jack Mendoza M.D. [id number] AUTO NRBC ABS COUNT 0.00 K/mcL Normal 0.00-0.00 [facility] Comment on above: Performed By: #### L [id number] #### LAB [address] [address] Jack Mendoza M.D. [id number] Erythrocyte distribution width (RBC) [Ratio] 17.3 % High 11.6-14.8 [facility] Comment on above: Performed By: #### L [id number] #### LAB [address] [address] Jack Mendoza M.D. [id number] Hematocrit (Bld) [Volume fraction] 38.0 % Low 41.0-53.0 [facility] Comment on above: Performed By: #### L [id number] #### LAB [address] [address] Jack Mendoza M.D. [id number] Hemoglobin (Bld) [Mass/Vol] 11.4 g/dL Low 13.5-17.5 [facility] Comment on above: Performed By: #### L [id number] ####[facility] [address] [address] Jack Mendoza M.D. [id number] MCH (RBC) [Entitic mass] 20.7 pg Low 26.0-34.0 [facility] Comment on above: Performed By: #### L [id number] ####[facility] [address] [address] Jack Mendoza M.D. [id number] MCV (RBC) [Entitic vol] 68.8 fL Low 80.0-100.0 [facility] Comment on above: Performed By: #### L [id number] ####[facility] [address] [address] Jack Mendoza M.D. [id number] MEAN CORPUSCULAR HEMOGLOBIN CONC 30.0 g/dL Low 31.0-37.0 [facility] Comment on above: Performed By: #### L [id number] ####[facility] [address] [address] Jack Mendoza M.D. [id number] Platelet mean volume (Bld) [Entitic vol] 9.3 fL Low 9.4-12.4 [facility] Comment on above: Performed By: #### L [id number] ####[facility] [address] [place] [address] Jack Mendoza M.D. [id number] Platelets (Bld) [#/Vol] 118 10*3/uL Low 150-400 [facility] Comment on above: Performed By: #### L [id number] ####[facility] [address] [address] Jack Mendoza M.D. [id number] RBC (Bld) [#/Vol] 5.52 10*6/uL Normal 4.50-5.90 [facility] Comment on above: Performed By: #### L [id number] ####[facility] [address] [place] [address] Jack Mendoza M.D. [id number] WBC (Bld) [#/Vol] 5.50 10*3/uL Normal 4.50-11.00 [facility] Comment on above: Performed By: #### L [id number] #### LAB [address] [address] Jack Mendoza M.D. [id number] CBC and Diff Morphologyon Neutrophils.vacuolat ed LM Ql (Bld) Present [facility] Ovalocytes LM Ql (Bld) Many [facility] Platelets Large Auto Ql (Bld) Few [facility] Platelets LM Ql (Bld) Decreased Abnormal Normal [facility] Polychromasia LM Ql (Bld) Few [facility] RBC morphology finding Nom (Bld) See Comment [facility] Comment on above: RBC Indices confirme d with manual peripheral smear review. Schistocytes Auto Ql (Bld) Few Abnormal See Comment [facility] Target cells LM Ql (Bld) Many [facility] MANUAL DIFFERENTIALon 2024 BASOPHILS - ABS (DIFF) 0.00 K/mcL Normal 0.00-0.30 [facility] Comment on above: Performed By: #### 4 5456 #### LAB [address] [address] Jack Mendoza M.D. [id number] BASOPHILS - REL (DIFF) 0.0 % Normal [facility] Comment on above: Performed By: #### 4 5456 #### LAB [address] [address] Jack Mendoza M.D. [id number] EOSINOPHILS - ABS (DIFF) 0.29 K/mcL Normal 0.00-0.50 [facility] Comment on above: Performed By: #### 4 5456 #### LAB [address] [id number] Jack Mendoza M.D. [id number] EOSINOPHILS - REL (DIFF) 5.3 % Normal [facility] Comment on above: Performed By: #### 4 5456 #### LAB [address] [address] Jack Mendoza M.D. [id number] LYMPHOCYTES - ABS (DIFF) 0.63 K/mcL Low 0.90-4.00 [facility] Comment on above: Performed By: #### 4 5456 #### LAB [address] [address] Jack Mendoza M.D. [id number] LYMPHOCYTES - REL (DIFF) 11.4 % Normal [facility] Comment on above: Performed By: #### 4 5456 #### LAB [address] [address] Jack Mendoza M.D. [id number] MONOCYTES - ABS (DIFF) 0.53 K/mcL Normal 0.30-0.90 [facility] Comment on above: Performed By: #### 4 5456 #### LAB [address] [address] Jack Mendoza M.D. [id number] MONOCYTES - REL (DIFF) 9.6 % Normal [facility] Comment on above: Performed By: #### 4 5456 #### LAB [address] [address] Jack Mendoza M.D. [id number] NEUTROPHILS - ABS (DIFF) 4.05 K/mcL Normal 1.70-7.00 [facility] Comment on above: Performed By: #### 4 5456 #### LAB [address] [address] Jack Mendoza M.D. [id number] NEUTROPHILS - REL (DIFF) 73.7 % [facility] Comment on above: Performed By: #### 4 5456 #### LAB [address] [address] Jack Mendoza M.D. [id number] MORPHOLOGYon 10-23-2024 OVAL SCAN Many Normal [facility] Comment on above: Performed By: #### L [id number] ####[facility] [address] [address] Jack Mendoza M.D. [id number] PLATELET ESTIMATE Decreased Abnormal Normal [facility] Comment on above: Performed By: #### L [id number] ####[facility] [address] [address] Jack Mendoza M.D. [id number] PLATELETS LARGE Few Normal [facility] Comment on above: Performed By: #### L [id number] ####[facility] [address] [place], [place] [address] Jack Mendoza M.D. [id number] POLY SCAN Few Normal [facility] Comment on above: Performed By: #### L [id number] ####[facility] [address] [address] Jack Mendoza M.D. [id number] RBC MORPH SCAN See Comment Normal [facility] Comment on above: Result Comment: RBC Indices confirmed with manual peripheral smear review. Performed By: #### L [id number] ####[facility] [address] [address] Jack Mendoza M.D. [id number] SCHISTO SCAN Few Abnormal See Comment [facility] Comment on above: Performed By: #### L [id number] ####[facility] [address] [address] Jack Mendoza M.D. [id number] TARGET CELL SCAN Many Normal [facility] Comment on above: Performed By: #### L [id number] ####[facility] [address] [address] Jack Mendoza M.D. [id number] VACUOLATED GRANULOCYTES Present Normal [facility] Comment on above: Performed By: #### L [id number] ####[facility] [address] [address] Jack Mendoza M.D. [id number] Manual Differential panel (B ld)on 10-23-2024 Basophils (Bld) [#/Vol] 0 10*3/uL [facility] Basophils/100 WBC (Bld) 0 % [facility] Eosinophils (Bld) [#/Vol] 0.29 10*3/uL [facility] Eosinophils/100 WBC (Bld) 5.3 % [facility] Lymphocytes (Bld) [#/Vol] 0.63 10*3/uL Low [facility] Lymphocytes/100 WBC (Bld) 11.4 % [facility] Monocytes (Bld) [#/Vol] 0.53 10*3/uL [facility] Monocytes/100 WBC (Bld) 9.6 % [facility] Neutrophils (Bld) [#/Vol] 4.05 10*3/uL [facility] Neutrophils/100 WBC (Bld) 73.7 % [facility] No Panel Informationon 10-23 Interpretation and review of laboratory results Abnormal [facility] BASIC METABOLIC PANELon Anion gap [Moles/Vol] 12 mmol/L Normal 10-20 [facility] Comment on above: Order Comment: [facility] has implemented the eGFR calculation approach that does not have a coefficient for race that conforms to the NKF-ASN Task Force Recommendations. Performed By: #### 4 [id number] #### LAB [address] [address] Jack Mendoza M.D. [id number] Calcium [Mass/Vol] 8.9 mg/dL Normal 8.4-10.2 [facility] Comment on above: Order Comment: [facility] has implemented the eGFR calculation approach that does not have a coefficient for race that conforms to the NKF-ASN Task Force Recommendations. Performed By: #### 4 6124 #### LAB [address] [address] Jack Mendoza M.D. [id number] Chloride [Moles/Vol] 92 mmol/L Low 98-108 [facility] Comment on above: Order Comment: [facility] has implemented the eGFR calculation approach that does not have a coefficient for race that conforms to the NKF-ASN Task Force Recommendations. Performed By: #### 4 6124 #### LAB [address] [address] Jack Mendoza M.D. [id number] Creatinine [Mass/Vol] 0.72 mg/dL Normal 0.50-1.30 [facility] Comment on above: Order Comment: [facility] has implemented the eGFR calculation approach that does not have a coefficient for race that conforms to the NKF-ASN Task Force Recommendations. Performed By: #### 4 6124 #### LAB [address] [address] Jack Mendoza M.D. [id number] EGFR 106 mL/min/1.73 m2 Normal >=60 [facility] Comment on above: Order Comment: [facility] has implemented the eGFR calculation approach that does not have a coefficient for race that conforms to the NKF-ASN Task Force Recommendations. Result Comment: Ashley mated GFR was calculated using the 2020 CKD-EPI creatinine equation. Performed By: #### 4 6124 #### LAB [address] [address] Jack Mendoza M.D. [id number] Glucose [Mass/Vol] 121 mg/dL High 65-99 [facility] Comment on above: Order Comment: [facility] has implemented the eGFR calculation approach that does not have a coefficient for race that conforms to the NKF-ASN Task Force Recommendations. Performed By: #### 4 6124 ####[facility] LAB [address] [address] Jack Mendoza M.D. [id number] HCO3 (Bld) [Moles/Vol] 34 mmol/L High 21-32 [facility] Comment on above: Order Comment: [facility] has implemented the eGFR calculation approach that does not have a coefficient for race that conforms to the NKF-ASN Task Force Recommendations. Performed By: #### 4 6124 ####[facility] LAB [address] [address] Jack Mendoza M.D. [id number] Potassium [Moles/Vol] 4.4 mmol/L Normal 3.5-5.1 [facility] Comment on above: Order Comment: [facility] has implemented the eGFR calculation approach that does not have a coefficient for race that conforms to the NKF-ASN Task Force Recommendations. Performed By: #### 4 6124 ####[facility] LAB [address] [address] Jack Mendoza M.D. [id number] Sodium [Moles/Vol] 134 mmol/L Low 135-145 [facility] Comment on above: Order Comment: [facility] has implemented the eGFR calculation approach that does not have a coefficient for race that conforms to the NKF-ASN Task Force Recommendations. Performed By: #### 4 6124 #### LAB [address] [place], [place] [address] Jack Mendoza M.D. [id number] Urea nitrogen [Mass/Vol] 21 mg/dL Normal 8-25 [facility] Comment on above: Order Comment: [facility] has implemented the eGFR calculation approach that does not have a coefficient for race that conforms to the NKF-ASN Task Force Recommendations. Performed By: #### 4 6124 #### LAB [address] [place], [place] [address] Jack Mendoza M.D. [id number] Urea nitrogen/Creatinine [Mass ratio] 29.2 mg/mg High 10.0-20.0 [facility] Comment on above: Order Comment: [facility] has implemented the eGFR calculation approach that does not have a coefficient for race that conforms to the NKF-ASN Task Force Recommendations. Performed By: #### 4 6124 #### LAB [address] [place], [place] [address] Jack Mendoza M.D. [id number] Basic metabolic 2000 panelon 10-22-2024 Anion gap [Moles/Vol] 12 mmol/L 10 - 20 mmol/L [facility] Calcium [Mass/Vol] 8.9 mg/dL 8.4 - 10. 2 mg/dL [facility] Chloride [Moles/Vol] 92 mmol/L Low 98 - 10 8 mmol/L [facility] Creatinine [Mass/Vol] 0.72 mg/dL 0.50 - 1.30 mg/dL [facility] GFR/1.73 sq M.predicted CKD-EPI (S/P/Bld) [Vol rate/Area] 106 - PINF [facility] Comment on above: Estimated GFR was ca lculated using the 2020 CKD-EPI creatinine equation. Glucose [Mass/Vol] 121 mg/dL High 65 - 99 mg/dL [facility] HCO3 [Moles/Vol] 34 mmol/L High 21 - 32 mmol/L [facility] Interpretation and review of laboratory results Abnormal [facility] Potassium [Moles/Vol] 4.4 mmol/L 3.5 - 5.1 mmol/L [facility] Sodium [Moles/Vol] 134 mmol/L Low 135 - 145 mmol/L [facility] Urea nitrogen [Mass/Vol] 21 mg/dL 8 - 25 mg/dL [facility] Urea nitrogen/Creatinine [Mass ratio] 29.2 mg/mg High 10.0 - 20.0 [facility] has implemented the eGFR calculation approach that does not have a coefficient for race that conforms to the NKF-ASN Task Force Recommendations. [facility] CBC Auto Differentialon Basophils (Bld) [#/Vol] 0.02 10*3/uL [facility] Basophils/100 WBC (Bld) 0.4 % [facility] Eosinophils (Bld) [#/Vol] 0.16 10*3/uL [facility] Eosinophils/100 WBC (Bld) 3.5 % [facility] Erythrocyte distribution width (RBC) [Entitic vol] 17 % High 11.6 - 14.8 % [facility] Hematocrit (Bld) [Volume fraction] 38 % Low 41.0 - 53.0 % [facility] Hemoglobin (Bld) [Mass/Vol] 11.2 g/dL Low 13.5 - 17.5 g/dL [facility] Immature granulocytes (Bld) [#/Vol] 0.03 10*3/uL [facility] Immature granulocytes/100 WBC (Bld) 0.7 % [facility] Comment on above: The IG parameter is the percentage of metamyelocytes, myelocytes and promyelocytes. An immature granulocyte count (IG) of 1% or more suggests the possibility of infection, an IG count of 3% is very likely related to an infection. Interpretation and review of laboratory results Abnormal [facility] Lymphocytes (Bld) [#/Vol] 0.66 10*3/uL Low [facility] Lymphocytes/100 WBC (Bld) 14.6 % [facility] MCH (RBC) [Entitic mass] 20.2 pg Low 26.0 - 34.0 pg [facility] MCHC (RBC) [Mass/Vol] 29.5 g/dL Low 31.0 - 37.0 g/dL [facility] MCV (RBC) [Entitic vol] 68.5 fL Low 80.0 - 100.0 fL [facility] Monocytes (Bld) [#/Vol] 0.71 10*3/uL [facility] Monocytes/100 WBC (Bld) 15.7 % [facility] Neutrophils (Bld) [#/Vol] 2.95 10*3/uL [facility] Neutrophils/100 WBC (Bld) 65.1 % [facility] Nucleated RBC (Bld) [#/Vol] 0 10*3/uL [facility] Nucleated RBC/100 WBC (Bld) [Ratio] 0 % [facility] Platelets (Bld) [#/Vol] 120 10*3/uL Low [facility] RBC (Bld) [#/Vol] 5.55 10*6/uL [facility] WBC (Bld) [#/Vol] 4.53 10*3/uL [facility] CBC WITH AUTO DIFFERENTIALon 10-22-2024 AUTO NRBC 0.0 % Normal [facility] Comment on above: Performed By: #### L [id number] #### LAB [address] [place] [address] Jack Mendoza M.D. [id number] AUTO NRBC ABS COUNT 0.00 K/mcL Normal 0.00-0.00 [facility] Comment on above: Performed By: #### L [id number] #### LAB [address] [address] Jack Mendoza M.D. [id number] BASOPHILS ABSOLUTE COUNT 0.02 K/mcL Normal 0.00-0.30 [facility] Comment on above: Performed By: #### L [id number] #### LAB [address] [place] [address] Jack Mendoza M.D. [id number] Basophils/100 WBC (Bld) 0.4 % Normal [facility] Comment on above: Performed By: #### L [id number] #### LAB [address] [address] Jack Mendoza M.D. [id number] Eosinophils (Bld) [#/Vol] 0.16 10*3/uL Normal 0.00-0.50 [facility] Comment on above: Performed By: #### L [id number] #### LAB [address] [place] [address] Jack Mendoza M.D. [id number] Eosinophils/100 WBC (Bld) 3.5 % Normal [facility] Comment on above: Performed By: #### L [id number] #### LAB [address] [address] Jack Mendoza M.D. [id number] Erythrocyte distribution width (RBC) [Ratio] 17.0 % High 11.6-14.8 [facility] Comment on above: Performed By: #### L [id number] #### LAB [address] [address] Jack Mendoza M.D. [id number] Hematocrit (Bld) [Volume fraction] 38.0 % Low 41.0-53.0 [facility] Comment on above: Performed By: #### L [id number] #### LAB [address] [address] Jack Mendoza M.D. [id number] Hemoglobin (Bld) [Mass/Vol] 11.2 g/dL Low 13.5-17.5 [facility] Comment on above: Performed By: #### L [id number] #### LAB [address] [address] Jack Mendoza M.D. [id number] IG ABSOLUTE 0.03 K/mcL Normal 0.00-0.30 [facility] Comment on above: Performed By: #### L [id number] #### LAB [address] [place] [address] Jack Mendoza M.D. [id number] IG PERCENT 0.70 % Normal [facility] Comment on above: Result Comment: The IG parameter is the percentage of metamyelocytes, myelocytes and promyelocytes. An immature granulocyte count (IG) of 1% or more suggests the possibility of infection, an IG count of 3% is very likely related to an infection. Performed By: #### L [id number] #### LAB [address] [place] [address] Jack Mendoza M.D. [id number] Lymphocytes (Bld) [#/Vol] 0.66 10*3/uL Low 0.90-4.00 [facility] Comment on above: Performed By: #### L [id number] #### LAB [address] [address] Jack Mendoza M.D. [id number] Lymphocytes/100 WBC (Bld) 14.6 % Normal [facility] Comment on above: Performed By: #### L [id number] #### LAB [address] [address] Jack Mendoza M.D. [id number] MCH (RBC) [Entitic mass] 20.2 pg Low 26.0-34.0 [facility] Comment on above: Performed By: #### L [id number] #### LAB [address] [address] Jack Mendoza M.D. [id number] MCV (RBC) [Entitic vol] 68.5 fL Low 80.0-100.0 [facility] Comment on above: Performed By: #### L [id number] #### LAB [address] [address] Jack Mendoza M.D. [id number] MEAN CORPUSCULAR HEMOGLOBIN CONC 29.5 g/dL Low 31.0-37.0 [facility] Comment on above: Performed By: #### L [id number] #### LAB [address] [address] Jack Mendoza M.D. [id number] Monocytes (Bld) [#/Vol] 0.71 10*3/uL Normal 0.30-0.90 [facility] Comment on above: Performed By: #### L [id number] #### LAB [address] [address] Jack Mendoza M.D. [id number] Monocytes/100 WBC (Bld) 15.7 % Normal [facility] Comment on above: Performed By: #### L [id number] #### LAB [address] [place] [address] Jack Mendoza M.D. [id number] NEUTROPHILS ABSOLUTE COUNT 2.95 K/mcL Normal 1.70-7.00 [facility] Comment on above: Performed By: #### L [id number] ####[facility] LAB [address] [address] Jack Mendoza M.D. [id number] Neutrophils/100 WBC (Bld) 65.1 % Normal [facility] Comment on above: Performed By: #### L [id number] ####[facility] LAB [address] [address] Jack Mendoza M.D. [id number] Platelets (Bld) [#/Vol] 120 10*3/uL Low 150-400 [facility] Comment on above: Performed By: #### L [id number] ####[facility] LAB [address] [address] Jack Mendoza M.D. [id number] RBC (Bld) [#/Vol] 5.55 10*6/uL Normal 4.50-5.90 [facility] Comment on above: Performed By: #### L [id number] ####[facility] LAB [address] [address] Jack Mendoza M.D. [id number] WBC (Bld) [#/Vol] 4.53 10*3/uL Normal 4.50-11.00 [facility] Comment on above: Performed By: #### L [id number] ####[facility] LAB [address] [address] Jack Mendoza M.D. [id number] MAGNESIUM LEVELon 10-22-2024 Magnesium [Mass/Vol] 2.0 mg/dL Normal 1.6-2.4 [facility] Comment on above: Performed By: #### 4 [id number] ####[facility] LAB [address] [address] Jack Mendoza M.D. [id number] Magnesium Levelon 10-22-2024 Magnesium [Mass/Vol] 2 mg/dL 1.6 - 2 .4 mg/dL [facility] Magnesium [Mass/Vol]on 10-22 Interpretation and review of laboratory results Normal [facility] No Panel Informationon 10-22 [facility] CBC Auto Differentialon Erythrocyte distribution width (RBC) [Entitic vol] 16.5 % High 11.6 - 14.8 % [facility] Hematocrit (Bld) [Volume fraction] 36.7 % Low 41.0 - 53.0 % [facility] Hemoglobin (Bld) [Mass/Vol] 10.9 g/dL Low 13.5 - 17.5 g/dL [facility] MCH (RBC) [Entitic mass] 20.6 pg Low 26.0 - 34.0 pg [facility] MCHC (RBC) [Mass/Vol] 29.7 g/dL Low 31.0 - 37.0 g/dL [facility] MCV (RBC) [Entitic vol] 69.5 fL Low 80.0 - 100.0 fL [facility] Nucleated RBC (Bld) [#/Vol] 0 10*3/uL [facility] Nucleated RBC/100 WBC (Bld) [Ratio] 0 % [facility] Platelet mean volume (Bld) [Entitic vol] 9.6 fL 9.4 - 12.4 fL [facility] Platelets (Bld) [#/Vol] 119 10*3/uL Low [facility] RBC (Bld) [#/Vol] 5.28 10*6/uL [facility] WBC (Bld) [#/Vol] 3.67 10*3/uL Low [facility] CBC WITH AUTO DIFFERENTIALon 10-21-2024 AUTO NRBC 0.0 % Normal [facility] Comment on above: Performed By: #### L [id number] ####[facility] LAB [address] [address] Jack Mendoza M.D. [id number] AUTO NRBC ABS COUNT 0.00 K/mcL Normal 0.00-0.00 [facility] Comment on above: Performed By: #### L [id number] ####[facility] LAB [address] [address] Jack Mendoza M.D. [id number] Erythrocyte distribution width (RBC) [Ratio] 16.5 % High 11.6-14.8 [facility] Comment on above: Performed By: #### L [id number] #### LAB [address] [address] Jack Mendoza M.D. [id number] Hematocrit (Bld) [Volume fraction] 36.7 % Low 41.0-53.0 [facility] Comment on above: Performed By: #### L [id number] #### LAB [address] [address] Jack Mendzoa M.D. [id number] Hemoglobin (Bld) [Mass/Vol] 10.9 g/dL Low 13.5-17.5 [facility] Comment on above: Performed By: #### L [id number] ####[facility] LAB [address] [address] Jack Mendoza M.D. [id number] MCH (RBC) [Entitic mass] 20.6 pg Low 26.0-34.0 [facility] Comment on above: Performed By: #### L [id number] ####[facility] LAB [address] [address] Jack Mendoza M.D. [id number] MCV (RBC) [Entitic vol] 69.5 fL Low 80.0-100.0 [facility] Comment on above: Performed By: #### L [id number] #### LAB [address] [address] Jack Mendoza M.D. [id number] MEAN CORPUSCULAR HEMOGLOBIN CONC 29.7 g/dL Low 31.0-37.0 [facility] Comment on above: Performed By: #### L [id number] ####[facility] LAB [address] [address] Jack Mendoza M.D. [id number] Platelet mean volume (Bld) [Entitic vol] 9.6 fL Normal 9.4-12.4 [facility] Comment on above: Performed By: #### L [id number] ####[facility] LAB [address] [address] Jack Mendoza M.D. [id number] Platelets (Bld) [#/Vol] 119 10*3/uL Low 150-400 [facility] Comment on above: Performed By: #### L [id number] ####[facility] LAB [address] [address] Jack Mendoza M.D. [id number] RBC (Bld) [#/Vol] 5.28 10*6/uL Normal 4.50-5.90 [facility] Comment on above: Performed By: #### L [id number] #### LAB [address] [address] Jack Mendoza M.D. [id number] WBC (Bld) [#/Vol] 3.67 10*3/uL Low 4.50-11.00 [facility] Comment on above: Performed By: #### L [id number] #### LAB [address] [address] Jack Mendoza M.D. [id number] CBC and Diff Morphologyon Neutrophils.vacuolat ed LM Ql (Bld) Present [facility] Ovalocytes LM Ql (Bld) Few [facility] Platelets Large Auto Ql (Bld) Few [facility] Polychromasia LM Ql (Bld) Few [facility] RBC morphology finding Nom (Bld) See Comment [facility] Comment on above: RBC Indices confirme d with manual peripheral smear review. Target cells LM Ql (Bld) Few [facility] MANUAL DIFFERENTIALon 2024 BASOPHILS - ABS (DIFF) 0.00 K/mcL Normal 0.00-0.30 [facility] Comment on above: Performed By: #### 4 [id number] #### LAB [address] [address] Jack Mendoza M.D. [id number] BASOPHILS - REL (DIFF) 0.0 % Normal [facility] Comment on above: Performed By: #### 4 [id number] #### LAB [address] [address] Jack Mendoza M.D. [id number] EOSINOPHILS - ABS (DIFF) 0.13 K/mcL Normal 0.00-0.50 [facility] Comment on above: Performed By: #### 4 [id number] #### LAB [address] [address] Jack Mendoza M.D. [id number] EOSINOPHILS - REL (DIFF) 3.6 % Normal [facility] Comment on above: Performed By: #### 4 [id number] #### LAB [address] [address] Jack Mendoza M.D. [id number] LYMPHOCYTE ATYPICAL - REL (DIFF) 1.8 % Normal [facility] Comment on above: Performed By: #### 4 [id number] #### LAB [address] [address] Jack Mendoza M.D. [id number] LYMPHOCYTES - ABS (DIFF) 0.66 K/mcL Low 0.90-4.00 [facility] Comment on above: Performed By: #### 4 [id number] #### LAB [address] [address] Jack Mendoza M.D. [id number] LYMPHOCYTES - REL (DIFF) 16.2 % [facility] Comment on above: Performed By: #### 4 [id number] #### LAB [address] [address] Jack Mendoza M.D. [id number] MONOCYTES - ABS (DIFF) 0.33 K/mcL Normal 0.30-0.90 [facility] Comment on above: Performed By: #### 4 [id number] #### LAB [address] [address] Jack Mendoza M.D. [id number] MONOCYTES - REL (DIFF) 9.0 % Normal [facility] Comment on above: Performed By: #### 4 [id number] #### LAB [address] [address] Jack Mendoaz M.D. [id number] NEUTROPHILS - ABS (DIFF) 2.55 K/mcL Normal 1.70-7.00 [facility] Comment on above: Performed By: #### 4 [id number] #### LAB [address] [address] Jack Mendoza M.D. [id number] NEUTROPHILS - REL (DIFF) 69.4 % Normal [facility] Comment on above: Performed By: #### 4 [id number] ####[facility] LAB [address] [id number] Jack Mendoza M.D. [id number] MORPHOLOGYon 10-21-2024 OVAL SCAN Few [facility] Comment on above: Performed By: #### L [id number] ####[facility] LAB [address] [id number] Jack Mendoza M.D. [id number] PLATELETS LARGE Few [facility] Comment on above: Performed By: #### L [id number] ####[facility] LAB [address] [address] Jack Mendoza M.D. [id number] POLY SCAN Few [facility] Comment on above: Performed By: #### L [id number] ####[facility] LAB [address] [address] Jack Mendoza M.D. [id number] RBC MORPH SCAN See Comment [facility] Comment on above: Result Comment: RBC Indices confirmed with manual peripheral smear review. Performed By: #### L [id number] ####[facility] LAB [address] [address] Jack Mendoza M.D. [id number] TARGET CELL SCAN Few [facility] Comment on above: Performed By: #### L [id number] ####[facility] LAB [address] [address] Jack Mendoza M.D. [id number] VACUOLATED GRANULOCYTES Present [facility] Comment on above: Performed By: #### L [id number] ####[facility] LAB [address] [id number] Jack Mendoza M.D. [id number] Manual Differential panel (B ld)on 10-21-2024 Basophils (Bld) [#/Vol] 0 10*3/uL [facility] Basophils/100 WBC (Bld) 0 % [facility] Eosinophils (Bld) [#/Vol] 0.13 10*3/uL [facility] Eosinophils/100 WBC (Bld) 3.6 % [facility] Lymphocytes (Bld) [#/Vol] 0.66 10*3/uL Low [facility] Lymphocytes/100 WBC (Bld) 16.2 % [facility] Monocytes (Bld) [#/Vol] 0.33 10*3/uL [facility] Monocytes/100 WBC (Bld) 9 % [facility] Neutrophils (Bld) [#/Vol] 2.55 10*3/uL [facility] Neutrophils/100 WBC (Bld) 69.4 % [facility] Variant lymphocytes/100 WBC (Bld) 1.8 % [facility] No Panel Informationon 10-21 Interpretation and review of laboratory results Abnormal [facility] Bacteria identified Cx Nom ( Bld)on 10-20-2024 Interpretation and review of laboratory results Normal [facility] Interpretation and review of laboratory results Normal [facility] Blood Culture Aerobic/Anaero bicon 10-20-2024 Bacteria identified Cx Nom (Bld) No Growth after 5 days [facility] Bacteria identified Cx Nom (Bld) No Growth after 5 days [facility] CBC Auto Differentialon Erythrocyte distribution width (RBC) [Entitic vol] 16.5 % High 11.6 - 14.8 % [facility] Hematocrit (Bld) [Volume fraction] 33.5 % Low 41.0 - 53.0 % [facility] Hemoglobin (Bld) [Mass/Vol] 10 g/dL Low 13.5 - 17.5 g/dL [facility] MCH (RBC) [Entitic mass] 20.7 pg Low 26.0 - 34.0 pg [facility] MCHC (RBC) [Mass/Vol] 29.9 g/dL Low 31.0 - 37.0 g/dL [facility] MCV (RBC) [Entitic vol] 69.4 fL Low 80.0 - 100.0 fL [facility] Nucleated RBC (Bld) [#/Vol] 0 10*3/uL [facility] Nucleated RBC/100 WBC (Bld) [Ratio] 0 % [facility] Platelet mean volume (Bld) [Entitic vol] 9.6 fL 9.4 - 12.4 fL [facility] Platelets (Bld) [#/Vol] 109 10*3/uL Low [facility] RBC (Bld) [#/Vol] 4.83 10*6/uL [facility] eah WBC (Bld) [#/Vol] 3.49 10*3/uL Low [facility] CBC WITH AUTO DIFFERENTIALon 10-20-2024 AUTO NRBC 0.0 % Normal [facility] Comment on above: Performed By: #### L [id number] ####[facility] [address] [address] Jack Mendoza M.D. [id number] AUTO NRBC ABS COUNT 0.00 K/mcL Normal 0.00-0.00 [facility] Comment on above: Performed By: #### L [id number] ####[facility] [address] [address] Jack Mendoza M.D. [id number] Erythrocyte distribution width (RBC) [Ratio] 16.5 % High 11.6-14.8 [facility] Comment on above: Performed By: #### L [id number] #### LAB [address] [address] Jack Mendoza M.D. [id number] Hematocrit (Bld) [Volume fraction] 33.5 % Low 41.0-53.0 [facility] Comment on above: Performed By: #### L [id number] #### LAB [address] [address] Jack Mendoza M.D. [id number] Hemoglobin (Bld) [Mass/Vol] 10.0 g/dL Low 13.5-17.5 [facility] Comment on above: Performed By: #### L [id number] #### LAB [address] [address] Jack Mendoza M.D. [id number] MCH (RBC) [Entitic mass] 20.7 pg Low 26.0-34.0 [facility] Comment on above: Performed By: #### L [id number] ####[facility] [address] [address] Jack Mendoza M.D. [id number] MCV (RBC) [Entitic vol] 69.4 fL Low 80.0-100.0 [facility] Comment on above: Performed By: #### L [id number] #### LAB [address] [address] Jack Mendoza M.D. [id number] MEAN CORPUSCULAR HEMOGLOBIN CONC 29.9 g/dL Low 31.0-37.0 [facility] Comment on above: Performed By: #### L [id number] #### LAB [address] [address] Jack Mendoza M.D. [id number] Platelet mean volume (Bld) [Entitic vol] 9.6 fL Normal 9.4-12.4 [facility] Comment on above: Performed By: #### L [id number] ####[facility] [address] [address] Jack Mendoza M.D. [id number] Platelets (Bld) [#/Vol] 109 10*3/uL Low 150-400 [facility] Comment on above: Performed By: #### L [id number] #### LAB [address] [address] Jack Mendoza M.D. [id number] RBC (Bld) [#/Vol] 4.83 10*6/uL Normal 4.50-5.90 [facility] Comment on above: Performed By: #### L [id number] #### LAB [address] [address] Jack Mendoza M.D. [id number] WBC (Bld) [#/Vol] 3.49 10*3/uL Low 4.50-11.00 [facility] Comment on above: Performed By: #### L [id number] #### LAB [address] [address] Jack Mendoza M.D. [id number] CBC and Diff Morphologyon Neutrophils.vacuolat ed LM Ql (Bld) Present [facility] Ovalocytes LM Ql (Bld) Few [facility] Platelets LM Ql (Bld) Decreased Abnormal Normal [facility] Polychromasia LM Ql (Bld) Few [facility] RBC morphology finding Nom (Bld) See Comment [facility] Comment on above: RBC Indices confirme d with manual peripheral smear review. Target cells LM Ql (Bld) Moderate [facility] MANUAL DIFFERENTIALon 2024 BASOPHILS - ABS (DIFF) 0.03 K/mcL Normal 0.00-0.30 [facility] Comment on above: Performed By: #### 4 [id number] #### LAB [address] [address] Jack Mendoza M.D. [id number] BASOPHILS - REL (DIFF) 0.9 % [facility] Comment on above: Performed By: #### 4 1337 #### LAB [address] [address] Jack Mendoza M.D. [id number] EOSINOPHILS - ABS (DIFF) 0.15 K/mcL Normal 0.00-0.50 [facility] Comment on above: Performed By: #### 4 [id number] #### LAB [address] [address] Jack Mendoza M.D. [id number] EOSINOPHILS - REL (DIFF) 4.3 % [facility] Comment on above: Performed By: #### 4 [id number] #### LAB [address] [address] Jack Mendoza M.D. [id number] LYMPHOCYTES - ABS (DIFF) 0.34 K/mcL Low 0.90-4.00 [facility] Comment on above: Performed By: #### 4 [id number] #### LAB [address] [place] [address] Jack Mendoza M.D. [id number] LYMPHOCYTES - REL (DIFF) 9.6 % [facility] Comment on above: Performed By: #### 4 2707 #### LAB [address] [address] Jack Mendoza M.D. [id number] MONOCYTES - ABS (DIFF) 0.15 K/mcL Low 0.30-0.90 [facility] Comment on above: Performed By: #### 4 1307 #### LAB [address] [place] [address] Jack Mendoza M.D. [id number] MONOCYTES - REL (DIFF) 4.3 % [facility] Comment on above: Performed By: #### 4 [id number] #### LAB [address] [address] Jack Mendoza M.D. [id number] NEUTROPHILS - ABS (DIFF) 2.82 K/mcL Normal 1.70-7.00 [facility] Comment on above: Performed By: #### 4 5456 ####[facility] [address] [address] Jack Mendoza M.D. [id number] NEUTROPHILS - REL (DIFF) 80.9 % Normal [facility] Comment on above: Performed By: #### 4 [id number] #### LAB [address] [address] Jack Mendoza M.D. [id number] MORPHOLOGYon 10-20-2024 OVAL SCAN Few Normal [facility] Comment on above: Performed By: #### L [id number] #### LAB [address] [address] Jack Mendoza M.D. [id number] PLATELET ESTIMATE Decreased Abnormal Normal [facility] Comment on above: Performed By: #### L [id number] #### LAB [address] [address] Jack Mendoza M.D. [id number] POLY SCAN Few Normal [facility] Comment on above: Performed By: #### L [id number] #### LAB [address] [address] Jack Mendoza M.D. [id number] RBC MORPH SCAN See Comment Normal [facility] Comment on above: Result Comment: RBC Indices confirmed with manual peripheral smear review. Performed By: #### L [id number] ####[facility] [address] [address] Jack Mendoza M.D. [id number] TARGET CELL SCAN Moderate Normal [facility] Comment on above: Performed By: #### L [id number] ####[facility] [address] [address] Jack Mendoza M.D. [id number] VACUOLATED GRANULOCYTES Present Normal [facility] Comment on above: Performed By: #### L [id number] ####[facility] [address] [place], [place] [address] Jack Mendoza M.D. [id number] Manual Differential panel (B ld)on 10-20-2024 Basophils (Bld) [#/Vol] 0.03 10*3/uL [facility] Basophils/100 WBC (Bld) 0.9 % [facility] Eosinophils (Bld) [#/Vol] 0.15 10*3/uL [facility] Eosinophils/100 WBC (Bld) 4.3 % [facility] Lymphocytes (Bld) [#/Vol] 0.34 10*3/uL Low [facility] Lymphocytes/100 WBC (Bld) 9.6 % [facility] Monocytes (Bld) [#/Vol] 0.15 10*3/uL Low [facility] Monocytes/100 WBC (Bld) 4.3 % [facility] Neutrophils (Bld) [#/Vol] 2.82 10*3/uL [facility] Neutrophils/100 WBC (Bld) 80.9 % [facility] No Panel Informationon 10-20 Interpretation and review of laboratory results Abnormal [facility] Wound Aerobic CultureOrdered By: Carlos Godwin on 10-20-2024 Bacteria identified Aer cx Nom (Wound) Light Growth Corynebacterium species, not JK Abnormal [facility] Interpretation and review of laboratory results Abnormal [facility] Microscopic observation Gram stain Nom (Wound) Moderate WBC [facility] Microscopic observation Gram stain Nom (Wound) No Organisms Seen [facility] CBC Auto Differentialon 09-23 Erythrocyte distribution width (RBC) [Entitic vol] 16.9 % High 11.6 - 14.8 % [facility] Hematocrit (Bld) [Volume fraction] 35.2 % Low 41.0 - 53.0 % [facility] Hemoglobin (Bld) [Mass/Vol] 10.3 g/dL Low 13.5 - 17.5 g/dL [facility] MCH (RBC) [Entitic mass] 20.3 pg Low 26.0 - 34.0 pg [facility] MCHC (RBC) [Mass/Vol] 29.3 g/dL Low 31.0 - 37.0 g/dL [facility] MCV (RBC) [Entitic vol] 69.3 fL Low 80.0 - 100.0 fL [facility] Nucleated RBC (Bld) [#/Vol] 0 10*3/uL [facility] Nucleated RBC/100 WBC (Bld) [Ratio] 0 % [facility] Platelet mean volume (Bld) [Entitic vol] 9.7 fL 9.4 - 12.4 fL [facility] Platelets (Bld) [#/Vol] 116 10*3/uL Low [facility] RBC (Bld) [#/Vol] 5.08 10*6/uL [facility] WBC (Bld) [#/Vol] 4.02 10*3/uL Low [facility] CBC WITH AUTO DIFFERENTIALon 10-19-2024 AUTO NRBC 0.0 % Normal [facility] Comment on above: Performed By: #### L [id number] #### LAB [address] [place] [address] Jack Mendoza M.D. [id number] AUTO NRBC ABS COUNT 0.00 K/mcL Normal 0.00-0.00 [facility] Comment on above: Performed By: #### L [id number] #### LAB [address] [address] Jack Mendoza M.D. [id number] Erythrocyte distribution width (RBC) [Ratio] 16.9 % High 11.6-14.8 [facility] Comment on above: Performed By: #### L [id number] #### LAB [address] [address] Jack Mendoza M.D. [id number] Hematocrit (Bld) [Volume fraction] 35.2 % Low 41.0-53.0 [facility] Comment on above: Performed By: #### L [id number] #### LAB [address] [address] Jack Mendoza M.D. [id number] Hemoglobin (Bld) [Mass/Vol] 10.3 g/dL Low 13.5-17.5 [facility] Comment on above: Performed By: #### L [id number] #### LAB [address] [place] [address] Jack Mendoza M.D. [id number] MCH (RBC) [Entitic mass] 20.3 pg Low 26.0-34.0 [facility] Comment on above: Performed By: #### L [id number] #### LAB [address] [address] Jack Mendoza M.D. [id number] MCV (RBC) [Entitic vol] 69.3 fL Low 80.0-100.0 [facility] Comment on above: Performed By: #### L [id number] ####[facility] [address] [address] Jack Mendoza M.D. [id number] MEAN CORPUSCULAR HEMOGLOBIN CONC 29.3 g/dL Low 31.0-37.0 [facility] Comment on above: Performed By: #### L [id number] #### LAB [address] [address] Jack Mendoza M.D. [id number] Platelet mean volume (Bld) [Entitic vol] 9.7 fL Normal 9.4-12.4 [facility] Comment on above: Performed By: #### L [id number] #### LAB [address] [address] Jack Mendoza M.D. [id number] Platelets (Bld) [#/Vol] 116 10*3/uL Low 150-400 [facility] Comment on above: Performed By: #### L [id number] #### LAB [address] [address] Jack Mendoza M.D. [id number] RBC (Bld) [#/Vol] 5.08 10*6/uL Normal 4.50-5.90 [facility] Comment on above: Performed By: #### L [id number] #### LAB [address] [place] [address] Jack Mendoza M.D. [id number] WBC (Bld) [#/Vol] 4.02 10*3/uL Low 4.50-11.00 [facility] Comment on above: Performed By: #### L [id number] #### LAB [address] [address] Jack Mendoza M.D. [id number] CBC and Diff Morphologyon Neutrophils.vacuolat ed LM Ql (Bld) Present [facility] Ovalocytes LM Ql (Bld) Many [facility] Platelets LM Ql (Bld) Decreased Abnormal Normal [facility] RBC morphology finding Nom (Bld) See Comment [facility] Comment on above: RBC Indices confirme d with manual peripheral smear review. Schistocytes Auto Ql (Bld) Few Abnormal See Comment [facility] Stomatocytes LM Ql (Bld) Few [facility] Target cells LM Ql (Bld) Many [facility] MANUAL DIFFERENTIALon 2024 BASOPHILS - ABS (DIFF) 0.04 K/mcL Normal 0.00-0.30 [facility] Comment on above: Performed By: #### 4 [id number] #### LAB [address] [address] Jack Mendoza M.D. [id number] BASOPHILS - REL (DIFF) 0.9 % Normal [facility] Comment on above: Performed By: #### 4 [id number] #### LAB [address] [address] Jack Mendoza M.D. [id number] EOSINOPHILS - ABS (DIFF) 0.04 K/mcL Normal 0.00-0.50 [facility] Comment on above: Performed By: #### 4 5456 #### LAB [address] [address] Jack Mendoza M.D. [id number] EOSINOPHILS - REL (DIFF) 0.9 % Normal [facility] Comment on above: Performed By: #### 4 5456 #### LAB [address] [address] Jack Mendoza M.D. [id number] LYMPHOCYTES - ABS (DIFF) 0.60 K/mcL Low 0.90-4.00 [facility] Comment on above: Performed By: #### 4 5456 #### LAB [address] [address] Jack Mendoza M.D. [id number] LYMPHOCYTES - REL (DIFF) 14.9 % Normal [facility] Comment on above: Performed By: #### 4 5456 #### LAB [address] [address] Jack Mendoza M.D. [id number] METAMYELOCYTES-REL (DIFF) 0.9 % Normal [facility] Comment on above: Performed By: #### 4 5456 #### LAB [address] [address] Jack Mendoza M.D. [id number] MONOCYTES - ABS (DIFF) 0.21 K/mcL Low 0.30-0.90 [facility] Comment on above: Performed By: #### 4 5456 #### LAB [address] [address] Jack Mendoza M.D. [id number] MONOCYTES - REL (DIFF) 5.2 % Normal [facility] Comment on above: Performed By: #### 4 5456 #### LAB [address] [address] Jack Mendoza M.D. [id number] NEUTROPHILS - ABS (DIFF) 3.14 K/mcL Normal 1.70-7.00 [facility] Comment on above: Performed By: #### 4 5456 #### LAB [address] [address] Jack Mendoza M.D. [id number] NEUTROPHILS - REL (DIFF) 77.2 % [facility] Comment on above: Performed By: #### 4 5456 #### LAB [address] [address] Jack Mendoza M.D. [id number] MORPHOLOGYon 10-19-2024 OVAL SCAN Many Normal [facility] Comment on above: Performed By: #### L [id number] #### LAB [address] [address] Jack Mendoza M.D. [id number] PLATELET ESTIMATE Decreased Abnormal Normal [facility] Comment on above: Performed By: #### L [id number] #### LAB [address] [place], [place] [address] Jack Mendoza M.D. [id number] RBC MORPH SCAN See Comment Normal [facility] Comment on above: Result Comment: RBC Indices confirmed with manual peripheral smear review. Performed By: #### L [id number] ####[facility] [address] [place], [place] [address] Jack Mendoza M.D. [id number] SCHISTO SCAN Few Abnormal See Comment [facility] Comment on above: Performed By: #### L [id number] ####[facility] [address] [place], [place] [address] Jack Mendoza M.D. [id number] STOMATOCYTES Few Normal [facility] Comment on above: Performed By: #### L [id number] ####[facility] LAB [address] [place], [place] [address] Jack Mendoza M.D. [id number] TARGET CELL SCAN Many Normal [facility] Comment on above: Performed By: #### L [id number] ####[facility] LAB [address] [address] Jack Mendoza M.D. [id number] VACUOLATED GRANULOCYTES Present Normal [facility] Comment on above: Performed By: #### L [id number] ####[facility] [address] [place], [place] [address] Jack Mendoza M.D. [id number] Manual Differential panel (B ld)on 10-19-2024 Basophils (Bld) [#/Vol] 0.04 10*3/uL [facility] Basophils/100 WBC (Bld) 0.9 % [facility] Eosinophils (Bld) [#/Vol] 0.04 10*3/uL [facility] Eosinophils/100 WBC (Bld) 0.9 % [facility] Lymphocytes (Bld) [#/Vol] 0.6 10*3/uL Low [facility] Lymphocytes/100 WBC (Bld) 14.9 % [facility] Metamyelocytes/100 WBC (Bld) 0.9 % [facility] Monocytes (Bld) [#/Vol] 0.21 10*3/uL Low [facility] Monocytes/100 WBC (Bld) 5.2 % [facility] Neutrophils (Bld) [#/Vol] 3.14 10*3/uL [facility] Neutrophils/100 WBC (Bld) 77.2 % [facility] No Panel Informationon 10-19 Interpretation and review of laboratory results Abnormal [facility] CBC Auto Differentialon 09-23 Basophils (Bld) [#/Vol] 0.01 10*3/uL [facility] Basophils/100 WBC (Bld) 0.2 % [facility] Eosinophils (Bld) [#/Vol] 0.02 10*3/uL [facility] Eosinophils/100 WBC (Bld) 0.5 % [facility] Erythrocyte distribution width (RBC) [Entitic vol] 16.5 % High 11.6 - 14.8 % [facility] Hematocrit (Bld) [Volume fraction] 36 % Low 41.0 - 53.0 % [facility] Hemoglobin (Bld) [Mass/Vol] 10.4 g/dL Low 13.5 - 17.5 g/dL [facility] Immature granulocytes (Bld) [#/Vol] 0.02 10*3/uL [facility] Immature granulocytes/100 WBC (Bld) 0.5 % [facility] Comment on above: The IG parameter is the percentage of metamyelocytes, myelocytes and promyelocytes. An immature granulocyte count (IG) of 1% or more suggests the possibility of infection, an IG count of 3% is very likely related to an infection. Interpretation and review of laboratory results Abnormal [facility] Lymphocytes (Bld) [#/Vol] 0.49 10*3/uL Low [facility] Lymphocytes/100 WBC (Bld) 12.1 % [facility] MCH (RBC) [Entitic mass] 20.5 pg Low 26.0 - 34.0 pg [facility] MCHC (RBC) [Mass/Vol] 28.9 g/dL Low 31.0 - 37.0 g/dL [facility] MCV (RBC) [Entitic vol] 70.9 fL Low 80.0 - 100.0 fL [facility] Monocytes (Bld) [#/Vol] 0.3 10*3/uL [facility] Monocytes/100 WBC (Bld) 7.4 % [facility] Neutrophils (Bld) [#/Vol] 3.21 10*3/uL [facility] Neutrophils/100 WBC (Bld) 79.3 % [facility] Nucleated RBC (Bld) [#/Vol] 0 10*3/uL [facility] Nucleated RBC/100 WBC (Bld) [Ratio] 0 % [facility] Platelet mean volume (Bld) [Entitic vol] 10.1 fL 9.4 - 12.4 fL [facility] Platelets (Bld) [#/Vol] 117 10*3/uL Low [facility] RBC (Bld) [#/Vol] 5.08 10*6/uL [facility] eah WBC (Bld) [#/Vol] 4.05 10*3/uL Low [facility] WITH AUTO DIFFERENTIALon 10-18-2024 AUTO NRBC 0.0 % [facility] Comment on above: Performed By: #### L [id number] #### LAB [address] [place] [address] Jack Mendoza M.D. [id number] AUTO NRBC ABS COUNT 0.00 K/mcL Normal 0.00-0.00 [facility] Comment on above: Performed By: #### L [id number] #### LAB [address] [place] [address] Jack Mendoza M.D. [id number] BASOPHILS ABSOLUTE COUNT 0.01 K/mcL Normal 0.00-0.30 [facility] Comment on above: Performed By: #### L [id number] #### LAB [address] [place] [address] Jack Mendoza M.D. [id number] Basophils/100 WBC (Bld) 0.2 % [facility] Comment on above: Performed By: #### L [id number] #### LAB [address] [place] [address] Jack Mendoza M.D. [id number] Eosinophils (Bld) [#/Vol] 0.02 10*3/uL Normal 0.00-0.50 [facility] Comment on above: Performed By: #### L [id number] #### LAB [address] [place] [address] Jack Mendoza M.D. [id number] Eosinophils/100 WBC (Bld) 0.5 % [facility] Comment on above: Performed By: #### L [id number] #### LAB [address] [address] Jack Mendoza M.D. [id number] Erythrocyte distribution width (RBC) [Ratio] 16.5 % High 11.6-14.8 [facility] Comment on above: Performed By: #### L [id number] #### LAB [address] [address] Jack Mendoza M.D. [id number] Hematocrit (Bld) [Volume fraction] 36.0 % Low 41.0-53.0 [facility] Comment on above: Performed By: #### L [id number] #### LAB [address] [address] Jack Mendoza M.D. [id number] Hemoglobin (Bld) [Mass/Vol] 10.4 g/dL Low 13.5-17.5 [facility] Comment on above: Performed By: #### L [id number] #### LAB [address] [address] Jack Mendoza M.D. [id number] IG ABSOLUTE 0.02 K/mcL Normal 0.00-0.30 [facility] Comment on above: Performed By: #### L [id number] #### LAB [address] [address] Jack Mendoza M.D. [id number] IG PERCENT 0.50 % Normal [facility] Comment on above: Result Comment: The IG parameter is the percentage of metamyelocytes, myelocytes and promyelocytes. An immature granulocyte count (IG) of 1% or more suggests the possibility of infection, an IG count of 3% is very likely related to an infection. Performed By: #### L [id number] #### LAB [address] [place] [address] Jack Mendoza M.D. [id number] Lymphocytes (Bld) [#/Vol] 0.49 10*3/uL Low 0.90-4.00 [facility] Comment on above: Performed By: #### L [id number] #### LAB [address] [address] Jack Mendoza M.D. [id number] Lymphocytes/100 WBC (Bld) 12.1 % Normal [facility] Comment on above: Performed By: #### L [id number] #### LAB [address] [address] Jack Mendoza M.D. [id number] MCH (RBC) [Entitic mass] 20.5 pg Low 26.0-34.0 [facility] Comment on above: Performed By: #### L [id number] #### LAB [address] [address] Jack Mendoza M.D. [id number] MCV (RBC) [Entitic vol] 70.9 fL Low 80.0-100.0 [facility] Comment on above: Performed By: #### L [id number] #### LAB [address] [address] Jack Mendoza M.D. [id number] MEAN CORPUSCULAR HEMOGLOBIN CONC 28.9 g/dL Low 31.0-37.0 [facility] Comment on above: Performed By: #### L [id number] #### LAB [address] [address] Jack Mendoza M.D. [id number] Monocytes (Bld) [#/Vol] 0.30 10*3/uL Normal 0.30-0.90 [facility] Comment on above: Performed By: #### L [id number] #### LAB [address] [address] Jack Mendoza M.D. [id number] Monocytes/100 WBC (Bld) 7.4 % Normal [facility] Comment on above: Performed By: #### L [id number] #### LAB [address] [address] Jack Mendoza M.D. [id number] NEUTROPHILS ABSOLUTE COUNT 3.21 K/mcL Normal 1.70-7.00 [facility] Comment on above: Performed By: #### L [id number] ####[facility] LAB [address] [address] Jack Mendoza M.D. [id number] Neutrophils/100 WBC (Bld) 79.3 % Normal [facility] Comment on above: Performed By: #### L [id number] ####[facility] LAB [address] [address] Jack Mendoza M.D. [id number] Platelet mean volume (Bld) [Entitic vol] 10.1 fL Normal 9.4-12.4 [facility] Comment on above: Performed By: #### L [id number] ####[facility] LAB [address] [address] Jack Mendoza M.D. [id number] Platelets (Bld) [#/Vol] 117 10*3/uL Low 150-400 [facility] Comment on above: Performed By: #### L [id number] ####[facility] [address] [address] Jack Mendoza M.D. [id number] RBC (Bld) [#/Vol] 5.08 10*6/uL Normal 4.50-5.90 [facility] Comment on above: Performed By: #### L [id number] ####[facility] LAB [address] [address] Jack Mendoza M.D. [id number] WBC (Bld) [#/Vol] 4.05 10*3/uL Low 4.50-11.00 [facility] Comment on above: Performed By: #### L [id number] ####[facility] LAB [address] [address] Jack Mendoza M.D. [id number] CRP [Mass/Vol]on 10-18-2024 Interpretation and review of laboratory results Normal [facility] CRP, INFLAMMATIONon 10-18-19 CRP [Mass/Vol] 9.6 mg/L Normal 0.0-10.0 [facility] Comment on above: Performed By: #### 4 [id number] #### LAB [address] [address] Jack Mendoza M.D. [id number] CRP, Inflammationon 10-18-19 CRP [Mass/Vol] 9.6 mg/L 0.0 - 10.0 mg/L [facility] ECG 12 Lead (Now)on 10-18-19 Atrial Rate 92 BPM [facility] P [place] 52 degrees [facility] P-R Interval 144 ms [facility] Q-T Interval 380 ms [facility] QRS Duration 80 ms [facility] QTC Calculation (Bezet) 469 ms [facility] R [place] 47 degrees [facility] T [place] 34 degrees [facility] Ventricular Rate 92 BPM [facility] Normal sinus rhythm Nonspecific ST abnormality Abnormal ECG ECG Cart Interpretation see physician note for interpretation. Confirmed by Whit Pearson ([id number]) on 10/17/2024 3:42:06 PM [facility] US ANKLE/BRACHIAL INDICES EX TREMITY LIMITEDon 10-18-2024 ANKLE/BRACHIAL INDICES EXTREMITY LIMITED Normal [facility] Doppler ankle/brachial in dexon 10-18-2024 Patient Info Name: CARMEN GILMAN Age: 59 years : 1965 Gender: Male Exam Date: 10/17/2024 2:36 PM Patient Status: Inpatient Excellence Coach: Margy Bradley RVT Referring Physician: QUYEN FRANCO NP; Indications - Leg and foot ulcers R09.89 - Other specified symptoms and signs involving the circulatory and respiratory systems Procedure Description 86598 Limited bilateral noninvasive physiologic studies of upper or lower extremity arteries with bidirectional Doppler/PVR waveform analysis at 1-2 levels. Conclusions * Right. * Right ankle brachial index is not accurate due to vessel wall calcification. Based on waveform criteria, this is a normal resting arterial evaluation. * No evidence of small vessel disease at the transmetatarsal level in the right foot. * Right toe brachial index is normal. * Left. * Left ankle brachial index is not accurate due to vessel wall calcification. Based on waveform criteria, this is a normal resting arterial evaluation. * No evidence of small vessel disease at the transmetatarsal level in the left foot. * Left toe brachial index is normal. Recommendations * This study has unknown ABIs bilaterally due to non-compressibility as seen with arterial calcification. Doppler and PVR waveforms show satisfactory amplitude and patterns at both ankles. There appears to be adequate perfusion for wound healing based on this study. Clinical correlation advised. . Doppler Rt Posterior Tibial: Triphasic Rt Dorsalis Pedis: Triphasic Lt Posterior Tibial: Triphasic Lt Dorsalis Pedis: Triphasic PVR Rt Ankle: Normal Lt Ankle: Normal Rt Digit: Normal Lt Digit: Normal Segmental BP Findings Right blood pressure not obtained due to IV placement. Rt Posterior Tibial: 200 Rt Dorsalis Pedis: 164 Rt Digit: 104 1.72 1.41 0.90 Lt Brachial: 116 Lt Posterior Tibial: 169 Lt Dorsalis Pedis: 158 Lt Digit: 100 1.46 1.36 0.86 Risk Factors Patient has a history of hypertension, diabetes, obesity and tobacco use-previous. . Report Signatures Finalized by Sb Savage MD on 10/18/2024 09:06 AM FUJSb Cartwright MD - 10/18/2024 Patient Info Name: CARMEN GILMAN Age: 59 years : 1965 Gender: Male Exam Date: 10/17/2024 2:36 PM Patient Status: Inpatient Excellence Coach: Margy Bradley RVT Referring Physician: QUYEN FRANCO [employer]; Indications - Leg and foot ulcers R09.89 - Other specified symptoms and signs involving the circulatory and respiratory systems Procedure Description 33548 Limited bilateral noninvasive physiologic studies of upper or lower extremity arteries with bidirectional Doppler/PVR waveform analysis at 1-2 levels. Conclusions * Right. * Right ankle brachial index is not accurate due to vessel wall calcification. Based on waveform criteria, this is a normal resting arterial evaluation. * No evidence of small vessel disease at the transmetatarsal level in the right foot. * Right toe brachial index is normal. * Left. * Left ankle brachial index is not accurate due to vessel wall calcification. Based on waveform criteria, this is a normal resting arterial evaluation. * No evidence of small vessel disease at the transmetatarsal level in the left foot. * Left toe brachial index is normal. Recommendations * This study has unknown ABIs bilaterally due to non-compressibility as seen with arterial calcification. Doppler and PVR waveforms show satisfactory amplitude and patterns at both ankles. There appears to be adequate perfusion for wound healing based on this study. Clinical correlation advised. . Doppler Rt Posterior Tibial: Triphasic Rt Dorsalis Pedis: Triphasic Lt Posterior Tibial: Triphasic Lt Dorsalis Pedis: Triphasic PVR Rt Ankle: Normal Lt Ankle: Normal Rt Digit: Normal Lt Digit: Normal Segmental BP Findings Right blood pressure not obtained due to IV placement. Rt Posterior Tibial: 200 Rt Dorsalis Pedis: 164 Rt Digit: 104 1.72 1.41 0.90 Lt Brachial: 116 Lt Posterior Tibial: 169 Lt Dorsalis Pedis: 158 Lt Digit: 100 1.46 1.36 0.86 Risk Factors Patient has a history of hypertension, diabetes, obesity and tobacco use-previous. . Report Signatures Finalized by Sb Savage MD on 10/18/2024 09:06 AM [facility] WOUND AEROBIC CULTUREon 09-23 WOUND AEROBIC CULTURE AEROBIC CULTURE CORYNEBACTERIUM SPECIES Light Growth Corynebacterium species, not JK GRAM STAIN RESULT Moderate WBC No Organisms Seen Abnormal [facility] Comment on above: Performed By: #### [id number] ####[facility] [address] [place] [address] Venancio Richardson M.D. [id number] XR Thoracic spine 2 Viewson 10-18-2024 No significant change Workstation ID: [id number] SMIC RIS EXAMINATION: XR THORACIC SPINE 2 VIEWS 10/17/2024 6:10 pm HISTORY: ORDERING SYSTEM PROVIDED HISTORY: Upright XR in TLSO brace, TECHNOLOGIST PROVIDED HISTORY: Illness/Other Reason for exam: Upright XR in TLSO brace Cancer History: u Surgery, RadiationHistory: u Encounter Type: Initial Additional signs and symptoms: . ORDERING SYSTEM PROVIDED DIAGNOSIS CODES: J96.01 Acute respiratory failure with hypoxia ([facility]) J44.1 COPD exacerbation ([facility]) L03.90 Cellulitis, unspecified cellulitis site A41.9 Sepsis, due to unspecified organism, unspecified whether acute organ dysfunction present ([facility]) S22.060A Compression fracture of T7 vertebra, initial encounter ([facility]) M17.11 Osteoarthritis of right knee, unspecified osteoarthritis type I50.31 Acute heart failure with preserved ejection fraction (HFpEF) ([facility]) I50.32 Chronic diastolic congestive heart failure ([facility]) I95.9 Hypotension, unspecified hypotension type E11.9 Type 2 diabetes mellitus without complication, without long-term current use of insulin ([facility]) I48.91 Atrial fibrillation with rapid ventricular response (HCC) E66.01 Morbid obesity with BMI of 40.0-44.9, adult (HCC) Z68.41 Morbid obesity with BMI of 40.0-44.9, adult ([facility]) K74.60 Hepatic cirrhosis, unspecified hepatic cirrhosis type, unspecified whether ascites present ([facility]) J44.1 Acute exacerbation of chronic obstructive pulmonary disease (COPD) ([facility]) COMPARISON: MRI 10/16/2024 FINDINGS: Unchanged alignment of the thoracic spine. Unchanged appearance of a T7 compression fracture. No new fracture is evident. Probable right basilar atelectasis [facility] Yoly Lai MD - 10/18/2024 EXAMINATION: XR THORACIC SPINE 2 VIEWS 10/17/2024 6:10 pm HISTORY: ORDERING SYSTEM PROVIDED HISTORY: Upright XR in TLSO brace, TECHNOLOGIST PROVIDED HISTORY: Illness/Other Reason for exam: Upright XR in TLSO brace Cancer History: u Surgery, RadiationHistory: u Encounter Type: Initial Additional signs and symptoms: . ORDERING SYSTEM PROVIDED DIAGNOSIS CODES: J96.01 Acute respiratory failure with hypoxia ([facility]) J44.1 COPD exacerbation ([facility]) L03.90 Cellulitis, unspecified cellulitis site A41.9 Sepsis, due to unspecified organism, unspecified whether acute organ dysfunction present ([facility]) S22.060A Compression fracture of T7 vertebra, initial encounter ([facility]) M17.11 Osteoarthritis of right knee, unspecified osteoarthritis type I50.31 Acute heart failure with preserved ejection fraction (HFpEF) ([facility]) I50.32 Chronic diastolic congestive heart failure ([facility]) I95.9 Hypotension, unspecified hypotension type E11.9 Type 2 diabetes mellitus without complication, without long-term current use of insulin ([facility]) I48.91 Atrial fibrillation with rapid ventricular response ([facility]) E66.01 Morbid obesity with BMI of 40.0-44.9, adult (HCC) Z68.41 Morbid obesity with BMI of 40.0-44.9, adult ([facility]) K74.60 Hepatic cirrhosis, unspecified hepatic cirrhosis type, unspecified whether ascites present ([facility]) J44.1 Acute exacerbation of chronic obstructive pulmonary disease (COPD) ([facility]) COMPARISON: MRI 10/16/2024 FINDINGS: Unchanged alignment of the thoracic spine. Unchanged appearance of a T7 compression fracture. No new fracture is evident. Probable right basilar atelectasis IMPRESSION: No significant change Workstation ID: [id number] [facility] XR Thoracic spine 2 ViewsOrd ered By: Yoly Lai on 10-18-2024 [facility] Work Phone: CBC Auto Differentialon 09-23 Basophils (Bld) [#/Vol] 0.01 10*3/uL [facility] Basophils/100 WBC (Bld) 0.2 % [facility] Eosinophils (Bld) [#/Vol] 0.01 10*3/uL [facility] Eosinophils/100 WBC (Bld) 0.2 % [facility] Erythrocyte distribution width (RBC) [Entitic vol] 16.6 % High 11.6 - 14.8 % [facility] Hematocrit (Bld) [Volume fraction] 32.7 % Low 41.0 - 53.0 % [facility] Hemoglobin (Bld) [Mass/Vol] 9.7 g/dL Low 13.5 - 17.5 g/dL [facility] Immature granulocytes (Bld) [#/Vol] 0.02 10*3/uL [facility] Immature granulocytes/100 WBC (Bld) 0.5 % [facility] Comment on above: The IG parameter is the percentage of metamyelocytes, myelocytes and promyelocytes. An immature granulocyte count (IG) of 1% or more suggests the possibility of infection, an IG count of 3% is very likely related to an infection. Interpretation and review of laboratory results Abnormal [facility] Lymphocytes (Bld) [#/Vol] 0.54 10*3/uL Low [facility] Lymphocytes/100 WBC (Bld) 12.5 % [facility] MCH (RBC) [Entitic mass] 20.9 pg Low 26.0 - 34.0 pg [facility] MCHC (RBC) [Mass/Vol] 29.7 g/dL Low 31.0 - 37.0 g/dL [facility] MCV (RBC) [Entitic vol] 70.3 fL Low 80.0 - 100.0 fL [facility] Monocytes (Bld) [#/Vol] 0.3 10*3/uL [facility] Monocytes/100 WBC (Bld) 7 % [facility] Neutrophils (Bld) [#/Vol] 3.43 10*3/uL [facility] Neutrophils/100 WBC (Bld) 79.6 % [facility] Nucleated RBC (Bld) [#/Vol] 0 10*3/uL [facility] Nucleated RBC/100 WBC (Bld) [Ratio] 0 % [facility] Platelet mean volume (Bld) [Entitic vol] 9.7 fL 9.4 - 12.4 fL [facility] Platelets (Bld) [#/Vol] 111 10*3/uL Low [facility] RBC (Bld) [#/Vol] 4.65 10*6/uL [facility] WBC (Bld) [#/Vol] 4.31 10*3/uL Low [facility] WITH AUTO DIFFERENTIALon 10-17-2024 AUTO NRBC 0.0 % [facility] Comment on above: Performed By: #### L [id number] #### LAB [address] [place] [address] Jack Mendoza M.D. [id number] AUTO NRBC ABS COUNT 0.00 K/mcL Normal 0.00-0.00 [facility] Comment on above: Performed By: #### L [id number] #### LAB [address] [address] Jack Mendoza M.D. [id number] BASOPHILS ABSOLUTE COUNT 0.01 K/mcL Normal 0.00-0.30 [facility] Comment on above: Performed By: #### L [id number] #### LAB [address] [place] [address] Jack Mendoza M.D. [id number] Basophils/100 WBC (Bld) 0.2 % [facility] Comment on above: Performed By: #### L [id number] #### LAB [address] [place] [address] Jack Mendoza M.D. [id number] Eosinophils (Bld) [#/Vol] 0.01 10*3/uL Normal 0.00-0.50 [facility] Comment on above: Performed By: #### L [id number] #### LAB [address] [place] [address] Jack Mendoza M.D. [id number] Eosinophils/100 WBC (Bld) 0.2 % Normal [facility] Comment on above: Performed By: #### L [id number] #### LAB [address] [address] Jack Mendoza M.D. [id number] Erythrocyte distribution width (RBC) [Ratio] 16.6 % High 11.6-14.8 [facility] Comment on above: Performed By: #### L [id number] #### LAB [address] [address] Jack Mendoza M.D. [id number] Hematocrit (Bld) [Volume fraction] 32.7 % Low 41.0-53.0 [facility] Comment on above: Performed By: #### L [id number] #### LAB [address] [address] Jack Mendoza M.D. [id number] Hemoglobin (Bld) [Mass/Vol] 9.7 g/dL Low 13.5-17.5 [facility] Comment on above: Performed By: #### L [id number] #### LAB [address] [place] [address] Jack Mendoza M.D. [id number] IG ABSOLUTE 0.02 K/mcL Normal 0.00-0.30 [facility] Comment on above: Performed By: #### L [id number] #### LAB [address] [place] [address] Jack Mendoza M.D. [id number] IG PERCENT 0.50 % Normal [facility] Comment on above: Result Comment: The IG parameter is the percentage of metamyelocytes, myelocytes and promyelocytes. An immature granulocyte count (IG) of 1% or more suggests the possibility of infection, an IG count of 3% is very likely related to an infection. Performed By: #### L [id number] #### LAB [address] [place] [address] Jack Mendoza M.D. [id number] Lymphocytes (Bld) [#/Vol] 0.54 10*3/uL Low 0.90-4.00 [facility] Comment on above: Performed By: #### L [id number] #### LAB [address] [address] Jack Mendoza M.D. [id number] Lymphocytes/100 WBC (Bld) 12.5 % Normal [facility] Comment on above: Performed By: #### L [id number] #### LAB [address] [address] Jack Mendoza M.D. [id number] MCH (RBC) [Entitic mass] 20.9 pg Low 26.0-34.0 [facility] Comment on above: Performed By: #### L [id number] #### LAB [address] [address] Jack Mendoza M.D. [id number] MCV (RBC) [Entitic vol] 70.3 fL Low 80.0-100.0 [facility] Comment on above: Performed By: #### L [id number] #### LAB [address] [address] Jack Mendoza M.D. [id number] MEAN CORPUSCULAR HEMOGLOBIN CONC 29.7 g/dL Low 31.0-37.0 [facility] Comment on above: Performed By: #### L [id number] #### LAB [address] [address] Jack Mendoza M.D. [id number] Monocytes (Bld) [#/Vol] 0.30 10*3/uL Normal 0.30-0.90 [facility] Comment on above: Performed By: #### L [id number] #### LAB [address] [address] Jack Mendoza M.D. [id number] Monocytes/100 WBC (Bld) 7.0 % Normal [facility] Comment on above: Performed By: #### L [id number] #### LAB [address] [address] Jack Mendoza M.D. [id number] NEUTROPHILS ABSOLUTE COUNT 3.43 K/mcL Normal 1.70-7.00 [facility] Comment on above: Performed By: #### L [id number] #### LAB [address] [place], [place] [address] Jack Mendoza M.D. [id number] Neutrophils/100 WBC (Bld) 79.6 % Normal [facility] Comment on above: Performed By: #### L [id number] ####[facility] LAB [address] [address] Jack Mendoza M.D. [id number] Platelet mean volume (Bld) [Entitic vol] 9.7 fL Normal 9.4-12.4 [facility] Comment on above: Performed By: #### L [id number] ####[facility] [address] [address] Jack Mendoza M.D. [id number] Platelets (Bld) [#/Vol] 111 10*3/uL Low 150-400 [facility] Comment on above: Performed By: #### L [id number] ####[facility] [address] [address] Jack Mendoza M.D. [id number] RBC (Bld) [#/Vol] 4.65 10*6/uL Normal 4.50-5.90 [facility] Comment on above: Performed By: #### L [id number] ####[facility] [address] [address] Jack Mendoza M.D. [id number] WBC (Bld) [#/Vol] 4.31 10*3/uL Low 4.50-11.00 [facility] Comment on above: Performed By: #### L [id number] ####[facility] [address] [address] Jack Mendoza M.D. [id number] CONSULTon 10-17-2024 CONSULT Normal [facility] ESR Westergren method (Bld) [Velocity]on 10-17-2024 ESR (Bld) [Velocity] 49 mm/h [facility] Interpretation and review of laboratory results Abnormal [facility] HEMOGLOBIN A1Con 10-17-2024 Glucose [Mass/Vol] 131 mg/dL High 74-114 [facility] Comment on above: Performed By: #### 4 [id number] ####[facility] [address] [place], [place] [address] Jack Mendoza M.D. [id number] HbA1c (Bld) [Mass fraction] 6.2 % High 4.2-5.6 [facility] Comment on above: Performed By: #### 4 [id number] #### LAB [address] [place], [place] [address] Jack Mendoza M.D. [id number] HbA1c (Bld) [Mass fraction]o n 10-17-2024 Average glucose Estimated from glycated hemoglobin (Bld) [Mass/Vol] 131 mg/dL High 74 - 114 mg/dL [facility] Interpretation and review of laboratory results Abnormal [facility] Hemoglobin A1con 10-17-2024 HbA1c (Bld) [Mass fraction] 6.2 % High 4.2 - 5.6 % [facility] MR FOOT RIGHT WITHOUT CONTRA STon 10-17-2024 MR FOOT RIGHT WITHOUT CONTRAST Normal [facility] Comment on above: Order Comment: Injur y/Trauma or Illness?:Illness/OtherHow long have you had these symptoms (acute/chronic)?:UnknownReason for exam?:right medial mid foot wound: patient unable to tolerate all images only t1 sag and long axis and stir sag and long axis images done: patient refused anymore imaging:Type of Exam?:UnknownAdditional signs and symptoms?:n MR Foot - right WO contrasto n 10-17-2024 Patient unable to complete the entire study. Sagittal T1, STIR and coronal T1 and STIR images performed. Pes planovalgus deformity, including rocker bottom deformity, typical for chronic neuropathic arthropathy. 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 Soft tissue ulceration over the plantar aspect of the medial cuneiform without evidence of underlying osteomyelitis or abscess. 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 PD/ads Workstation ID: [id number] SMIC [facility] EXAMINATION: MR FOOT RIGHT WITHOUT CONTRAST HISTORY: ORDERING SYSTEM PROVIDED HISTORY: Ulcer concerning for osteo/charcot, TECHNOLOGIST PROVIDED HISTORY: Illness/Other Reason for exam: right medial mid foot wound: patient unable to tolerate all images only t1 sag and long axis and stir sag and long axis images done: patient refused anymore imaging: Encounter Type: Unknown Additional signs and symptoms: n ORDERING SYSTEM PROVIDED DIAGNOSIS CODES: J96.01 Acute respiratory failure with hypoxia (HCC) J44.1 COPD exacerbation ([facility]) L03.90 Cellulitis, unspecified cellulitis site A41.9 Sepsis, due to unspecified organism, unspecified whether acute organ dysfunction present ([facility]) S22.060A Compression fracture of T7 vertebra, initial encounter ([facility]) COMPARISON: None. TECHNIQUE: Multiplanar, multisequence imaging of the right foot without IV contrast. FINDINGS: Patient unable to complete the entire study. Sagittal T1, STIR and coronal T1 and STIR images performed. Pes planovalgus deformity, including rocker bottom deformity, typical for chronic neuropathic arthropathy. 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 Soft tissue ulceration over the plantar aspect of the medial cuneiform, without evidence of underlying osteomyelitis or abscess. 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 No pathologic joint effusion. No acute fracture. Diffuse subcutaneous swelling over the dorsum of the foot seen. [facility] [place] MD - 10/17/2024 EXAMINATION: MR FOOT RIGHT WITHOUT CONTRAST HISTORY: ORDERING SYSTEM PROVIDED HISTORY: Ulcer concerning for osteo/charcot, TECHNOLOGIST PROVIDED HISTORY: Illness/Other Reason for exam: right medial mid foot wound: patient unable to tolerate all images only t1 sag and long axis and stir sag and long axis images done: patient refused anymore imaging: Encounter Type: Unknown Additional signs and symptoms: n ORDERING SYSTEM PROVIDED DIAGNOSIS CODES: J96.01 Acute respiratory failure with hypoxia (HCC) J44.1 COPD exacerbation ([facility]) L03.90 Cellulitis, unspecified cellulitis site A41.9 Sepsis, due to unspecified organism, unspecified whether acute organ dysfunction present ([facility]) S22.060A Compression fracture of T7 vertebra, initial encounter ([facility]) COMPARISON: None. TECHNIQUE: Multiplanar, multisequence imaging of the right foot without IV contrast. FINDINGS: Patient unable to complete the entire study. Sagittal T1, STIR and coronal T1 and STIR images performed. Pes planovalgus deformity, including rocker bottom deformity, typical for chronic neuropathic arthropathy. 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 Soft tissue ulceration over the plantar aspect of the medial cuneiform, without evidence of underlying osteomyelitis or abscess. 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 No pathologic joint effusion. No acute fracture. Diffuse subcutaneous swelling over the dorsum of the foot seen. IMPRESSION: Patient unable to complete the entire study. Sagittal T1, STIR and coronal T1 and STIR images performed. Pes planovalgus deformity, including rocker bottom deformity, typical for chronic neuropathic arthropathy. 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 Soft tissue ulceration over the plantar aspect of the medial cuneiform without evidence of underlying osteomyelitis or abscess. 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 PD/ads Workstation ID: [id number] [facility] Radiology Study observation (narrative) [facility] MR Foot - right WO contrastO rdered By: [place] on 10-17-2024 [facility] Work Phone: SEDIMENTATION RATEon 025 SEDIMENTATION RATE, [id number] 49 mm/hr High 0-20 [facility] Comment on above: Performed By: #### 4 [id number] ####[facility] [address] [place] [id number] Jack Mendoza M.D. [id number] XR THORACIC SPINE 2 VIEWSon 10-17-2024 XR THORACIC SPINE 2 VIEWS Normal [facility] Comment on above: Order Comment: Injur y/Trauma or Illness?:Illness/OtherHow long have you had these symptoms (acute/chronic)?:AcuteReason for exam?:Upright XR in TLSO braceHistory of cancer?:uSurgeries, chemotherapy, or radiation?:uType of Exam?:InitialAdditional signs and symptoms?:. XR Thoracic spine 2 Viewson 10-17-2024 Radiology Study observation (narrative) [facility] BASIC METABOLIC PANELon 09-23 Anion gap [Moles/Vol] 14 mmol/L Normal 10-20 [facility] Comment on above: Order Comment: [facility] has implemented the eGFR calculation approach that does not have a coefficient for race that conforms to the NKF-ASN Task Force Recommendations. Performed By: #### 4 [id number] #### LAB [address] [id number] Jack Mendoza M.D. [id number] Calcium [Mass/Vol] 8.7 mg/dL Normal 8.4-10.2 [facility] Comment on above: Order Comment: [facility] has implemented the eGFR calculation approach that does not have a coefficient for race that conforms to the NKF-ASN Task Force Recommendations. Performed By: #### 4 6124 #### LAB [address] [id number] Jack Mendoza M.D. [id number] Chloride [Moles/Vol] 97 mmol/L Low 98-108 [facility] Comment on above: Order Comment: [facility] has implemented the eGFR calculation approach that does not have a coefficient for race that conforms to the NKF-ASN Task Force Recommendations. Performed By: #### 4 6124 #### LAB [address] [id number] Jack Mendoza M.D. [id number] Creatinine [Mass/Vol] 0.66 mg/dL Normal 0.50-1.30 [facility] Comment on above: Order Comment: [facility] has implemented the eGFR calculation approach that does not have a coefficient for race that conforms to the NKF-ASN Task Force Recommendations. Performed By: #### 4 6124 #### LAB [address] [id number] Jack Mendoza M.D. [id number] EGFR 109 mL/min/1.73 m2 Normal >=60 [facility] Comment on above: Order Comment: [facility] has implemented the eGFR calculation approach that does not have a coefficient for race that conforms to the NKF-ASN Task Force Recommendations. Result Comment: Ashley mated GFR was calculated using the 2020 CKD-EPI creatinine equation. Performed By: #### 4 6124 #### LAB [address] [address] Jack Mendoza M.D. [id number] Glucose [Mass/Vol] 156 mg/dL High 65-99 [facility] Comment on above: Order Comment: [facility] has implemented the eGFR calculation approach that does not have a coefficient for race that conforms to the NKF-ASN Task Force Recommendations. Performed By: #### 4 6124 ####[facility] [address] [address] Jack Mendoza M.D. [id number] HCO3 (Bld) [Moles/Vol] 30 mmol/L Normal 21-32 [facility] Comment on above: Order Comment: [facility] has implemented the eGFR calculation approach that does not have a coefficient for race that conforms to the NKF-ASN Task Force Recommendations. Performed By: #### 4 6124 #### LAB [address] [address] Jack Mendoza M.D. [id number] Potassium [Moles/Vol] 4.4 mmol/L Normal 3.5-5.1 [facility] Comment on above: Order Comment: [facility] has implemented the eGFR calculation approach that does not have a coefficient for race that conforms to the NKF-ASN Task Force Recommendations. Performed By: #### 4 6124 ####[facility] [address] [address] Jack Mendoza M.D. [id number] Sodium [Moles/Vol] 137 mmol/L Normal 135-145 [facility] Comment on above: Order Comment: [facility] has implemented the eGFR calculation approach that does not have a coefficient for race that conforms to the NKF-ASN Task Force Recommendations. Performed By: #### 4 6124 ####[facility] [address] [address] Jack Mendoza M.D. [id number] Urea nitrogen [Mass/Vol] 18 mg/dL Normal 8-25 [facility] Comment on above: Order Comment: [facility] has implemented the eGFR calculation approach that does not have a coefficient for race that conforms to the NKF-ASN Task Force Recommendations. Performed By: #### 4 6124 #### LAB [address], [place] [address] Jack Mendoza M.D. [id number] Urea nitrogen/Creatinine [Mass ratio] 27.3 mg/mg High 10.0-20.0 [facility] Comment on above: Order Comment: [facility] has implemented the eGFR calculation approach that does not have a coefficient for race that conforms to the NKF-ASN Task Force Recommendations. Performed By: #### 4 6124 #### LAB [address], [place] [address] Jack Mendoza M.D. [id number] Basic metabolic 2000 panelon 10-16-2024 Anion gap [Moles/Vol] 14 mmol/L 10 - 20 mmol/L [facility] Calcium [Mass/Vol] 8.7 mg/dL 8.4 - 10. 2 mg/dL [facility] Chloride [Moles/Vol] 97 mmol/L Low 98 - 10 8 mmol/L [facility] Creatinine [Mass/Vol] 0.66 mg/dL 0.50 - 1.30 mg/dL [facility] GFR/1.73 sq M.predicted CKD-EPI (S/P/Bld) [Vol rate/Area] 109 - PINF [facility] Comment on above: Estimated GFR was ca lculated using the 2020 CKD-EPI creatinine equation. Glucose [Mass/Vol] 156 mg/dL High 65 - 99 mg/dL [facility] HCO3 [Moles/Vol] 30 mmol/L 21 - 32 mmol/L [facility] Interpretation and review of laboratory results Abnormal [facility] Potassium [Moles/Vol] 4.4 mmol/L 3.5 - 5.1 mmol/L [facility] Sodium [Moles/Vol] 137 mmol/L 135 - 145 mmol/L [facility] Urea nitrogen [Mass/Vol] 18 mg/dL 8 - 25 mg/dL [facility] Urea nitrogen/Creatinine [Mass ratio] 27.3 mg/mg High 10.0 - 20.0 [facility] has implemented the eGFR calculation approach that does not have a coefficient for race that conforms to the NKF-ASN Task Force Recommendations. [facility] CBCon 10-16-2024 AUTO NRBC 0.0 % Normal [facility] Comment on above: Performed By: #### 4 [id number] #### LAB [address] [address] Jack Mendoza M.D. [id number] AUTO NRBC ABS COUNT 0.00 K/mcL Normal 0.00-0.00 [facility] Comment on above: Performed By: #### 4 [id number] ####[facility] [address] [address] Jack Mendoza M.D. [id number] Erythrocyte distribution width (RBC) [Ratio] 17.1 % High 11.6-14.8 [facility] Comment on above: Performed By: #### 4 [id number] #### LAB [address] [address] Jack Mendoza M.D. [id number] Hematocrit (Bld) [Volume fraction] 36.6 % Low 41.0-53.0 [facility] Comment on above: Performed By: #### 4 [id number] #### LAB [address] [address] Jack Mendoza M.D. [id number] Hemoglobin (Bld) [Mass/Vol] 10.6 g/dL Low 13.5-17.5 [facility] Comment on above: Performed By: #### 4 [id number] #### LAB [address] [address] Jack Mendoza M.D. [id number] MCH (RBC) [Entitic mass] 20.2 pg Low 26.0-34.0 [facility] Comment on above: Performed By: #### 4 [id number] #### LAB [address] [address] Jack Mendoza M.D. [id number] MCV (RBC) [Entitic vol] 69.8 fL Low 80.0-100.0 [facility] Comment on above: Performed By: #### 4 [id number] ####[facility] [address], [place] [address] Jack Mendoza M.D. [id number] MEAN CORPUSCULAR HEMOGLOBIN CONC 29.0 g/dL Low 31.0-37.0 [facility] Comment on above: Performed By: #### 4 [id number] #### LAB [address] [address] Jack Mendoza M.D. [id number] Platelet mean volume (Bld) [Entitic vol] 10.2 fL Normal 9.4-12.4 [facility] Comment on above: Performed By: #### 4 [id number] #### LAB [address] [id number] Jack Mendoza M.D. [id number] Platelets (Bld) [#/Vol] 116 10*3/uL Low 150-400 [facility] Comment on above: Performed By: #### 4 [id number] #### LAB [address] [address] Jack Mendoza M.D. [id number] RBC (Bld) [#/Vol] 5.24 10*6/uL Normal 4.50-5.90 [facility] Comment on above: Performed By: #### 4 [id number] #### LAB [address] [address] Jack Mendoza M.D. [id number] WBC (Bld) [#/Vol] 3.77 10*3/uL Low 4.50-11.00 [facility] Comment on above: Performed By: #### 4 [id number] #### LAB [address] [address] Jcak Mendoza M.D. [id number] CBC panel Auto (Bld)on 10-16 Erythrocyte distribution width (RBC) [Entitic vol] 17.1 % High 11.6 - 14.8 % [facility] Hematocrit (Bld) [Volume fraction] 36.6 % Low 41.0 - 53.0 % [facility] Hemoglobin (Bld) [Mass/Vol] 10.6 g/dL Low 13.5 - 17.5 g/dL [facility] Interpretation and review of laboratory results Abnormal [facility] MCH (RBC) [Entitic mass] 20.2 pg Low 26.0 - 34.0 pg [facility] MCHC (RBC) [Mass/Vol] 29 g/dL Low 31.0 - 37.0 g/dL [facility] MCV (RBC) [Entitic vol] 69.8 fL Low 80.0 - 100.0 fL [facility] Nucleated RBC (Bld) [#/Vol] 0 10*3/uL [facility] Nucleated RBC/100 WBC (Bld) [Ratio] 0 % [facility] Platelet mean volume (Bld) [Entitic vol] 10.2 fL 9.4 - 12.4 fL [facility] Platelets (Bld) [#/Vol] 116 10*3/uL Low [facility] RBC (Bld) [#/Vol] 5.24 10*6/uL [facility] WBC (Bld) [#/Vol] 3.77 10*3/uL Low [facility] CONSULTon 10-16-2024 CONSULT Normal [facility] CT Thoracic and lumbar spine WO contraston 10-16-2024 1. There is moderate central compression of the T7 vertebral body, new compared to 07/02/2024. No definite fracture lines are visualized. This could be a chronic and less likely acute/subacute compression fracture. If there is focal point tenderness or further concern, MRI should be obtained. 2. Stable chronic compression fractures at the L1 and L2 vertebral bodies. 3. No acute compression fracture in the remaining thoracic and lumbar spine. [employer] Workstation ID: [id number] [facility] EXAMINATION: CT THORACIC AND LUMBAR SPINE RECONSTRUCTED HISTORY: ORDERING SYSTEM PROVIDED HISTORY: fall; upper and lower back pain, TECHNOLOGIST PROVIDED HISTORY: Injury/Trauma Reason for exam: upper and lower back pain, fall Encounter Type: Initial Mechanism of injury: fall ORDERING SYSTEM PROVIDED DIAGNOSIS CODES: J96.01 Acute respiratory failure with hypoxia ([facility]) J44.1 COPD exacerbation ([facility]) L03.90 Cellulitis, unspecified cellulitis site A41.9 Sepsis, due to unspecified organism, unspecified whether acute organ dysfunction present ([facility]) COMPARISON: CT pulmonary arteries 07/02/2024. CT abdomen and pelvis 10/04/2023. TECHNIQUE: Multiple contiguous axial CT images were obtained through the thoracic spine and lumbar spine without intravenous contrast. Coronal and sagittal reformatted images were also obtained. Dose reduction techniques were achieved by using automated exposure control and/or adjustment of mA and/or kV according to patient size and/or use of iterative reconstruction technique. FINDINGS: Thoracic spine: Straightening of the thoracic spine. Moderate central compression of the T7 vertebral body involving the anterior and the middle columns. This is new compared to the prior study. No definite fracture line visualized. Straightening of the thoracic spine. Vertebral bodies are anatomically aligned. Vertebral body heights are preserved. There is no evidence for acute fracture. There is no evidence for acute subluxation. The spinal canal is not optimally evaluated secondary to intrinsic constraints of CT, though no high-grade spinal canal stenosis identified. CT lumbar spine: Straightening of the lumbar spine. Stable jwwulscg-hh-trgsgy anterior wedging of L2. Stable mild anterior wedging of L1. No new compression deformities. No subluxation scattered moid-hh-cazlemki disc space narrowing. No central spinal canal poorly visualized secondary to intrinsic constraints of CT imaging. No high-grade spinal canal stenosis suspected. Please refer to dedicated imaging for details on the chest, abdomen, and pelvis. [facility] Jonathan Rodrigez MD - 09/23 EXAMINATION: CT THORACIC AND LUMBAR SPINE RECONSTRUCTED HISTORY: ORDERING SYSTEM PROVIDED HISTORY: fall; upper and lower back pain, TECHNOLOGIST PROVIDED HISTORY: Injury/Trauma Reason for exam: upper and lower back pain, fall Encounter Type: Initial Mechanism of injury: fall ORDERING SYSTEM PROVIDED DIAGNOSIS CODES: J96.01 Acute respiratory failure with hypoxia ([facility]) J44.1 COPD exacerbation ([facility]) L03.90 Cellulitis, unspecified cellulitis site A41.9 Sepsis, due to unspecified organism, unspecified whether acute organ dysfunction present ([facility]) COMPARISON: CT pulmonary arteries 07/02/2024. CT abdomen and pelvis 10/04/2023. TECHNIQUE: Multiple contiguous axial CT images were obtained through the thoracic spine and lumbar spine without intravenous contrast. Coronal and sagittal reformatted images were also obtained. Dose reduction techniques were achieved by using automated exposure control and/or adjustment of mA and/or kV according to patient size and/or use of iterative reconstruction technique. FINDINGS: Thoracic spine: Straightening of the thoracic spine. Moderate central compression of the T7 vertebral body involving the anterior and the middle columns. This is new compared to the prior study. No definite fracture line visualized. Straightening of the thoracic spine. Vertebral bodies are anatomically aligned. Vertebral body heights are preserved. There is no evidence for acute fracture. There is no evidence for acute subluxation. The spinal canal is not optimally evaluated secondary to intrinsic constraints of CT, though no high-grade spinal canal stenosis identified. CT lumbar spine: Straightening of the lumbar spine. Stable htwckxaf-cc-rzbnue anterior wedging of L2. Stable mild anterior wedging of L1. No new compression deformities. No subluxation scattered dlnw-ke-sxpvnbql disc space narrowing. No central spinal canal poorly visualized secondary to intrinsic constraints of CT imaging. No high-grade spinal canal stenosis suspected. Please refer to dedicated imaging for details on the chest, abdomen, and pelvis. IMPRESSION: 1. There is moderate central compression of the T7 vertebral body, new compared to 07/02/2024. No definite fracture lines are visualized. This could be a chronic and less likely acute/subacute compression fracture. If there is focal point tenderness or further concern, MRI should be obtained. 2. Stable chronic compression fractures at the L1 and L2 vertebral bodies. 3. No acute compression fracture in the remaining thoracic and lumbar spine. [employer] Workstation ID: [id number] [facility] CT Thoracic and lumbar spine WO contrastOrdered By: Jonathan Rodrigez on 10-16-2024 [facility] Work Phone: H AND Mike 10-16-2024 H AND P Normal [facility] MR THORACIC SPINE WITHOUT CO NTRASTon 10-16-2024 MR THORACIC SPINE WITHOUT CONTRAST Normal [facility] Comment on above: Order Comment: Injur y/Trauma or Illness?:Illness/OtherHow long have you had these symptoms (acute/chronic)?:AcuteReason for exam?:fell yesterday and now c/o painType of Exam?:InitialAdditional signs and symptoms?:n MR Thoracic spine WO contras ton 10-16-2024 1. Compression fracture at T7 appears to be likely subacute. There is bone marrow edema throughout the vertebral body and approximately 55% decreased vertebral body height. No significant retropulsion of bone fragments into the canal. There is some mild disc bulge at T6-7 mildly effacing the ventral aspect of the thecal sac without spinal cord compression. 2. No other compression fractures. No epidural hematoma. 3. No spinal cord compression or abnormal signal in the thoracic spinal cord. [employer]/alt Workstation ID: [id number] [employer] EXAMINATION: MR THORACIC SPINE WITHOUT CONTRAST HISTORY: ORDERING SYSTEM PROVIDED HISTORY: T7 vertebral body compression without definite fracture line, TECHNOLOGIST PROVIDED HISTORY: Illness/Other Reason for exam: fell yesterday and now c/o pain Encounter Type: Initial Additional signs and symptoms: n ORDERING SYSTEM PROVIDED DIAGNOSIS CODES: J96.01 Acute respiratory failure with hypoxia ([facility]) J44.1 COPD exacerbation ([facility]) L03.90 Cellulitis, unspecified cellulitis site A41.9 Sepsis, due to unspecified organism, unspecified whether acute organ dysfunction present ([facility]) S22.060A Compression fracture of T7 vertebra, initial encounter ([facility]) COMPARISON: CT chest, abdomen and pelvis, 10/15/2024. TECHNIQUE: Multiplanar, multisequence MRI imaging of the thoracic spine without contrast. FINDINGS: Compression fracture at the T7 level appears to be subacute. There is 55% decreased vertebral body height centrally. There is bone marrow edema with hyperintense signal on STIR throughout the vertebral body. The pedicles appear to be intact. There is no significant retropulsion of bone fragments into the spinal canal. There is some disc bulge at T6-7 mildly effacing the ventral aspect of the thecal sac without compression of the spinal cord. There is no epidural hematoma. No other thoracic spine compression fractures or bone marrow signal abnormalities. Mild multilevel degenerative disc disease. No significant spinal stenosis at the remainder of the thoracic spine levels. No spinal cord compression. No abnormal signal in the thoracic spinal cord. [facility] Enrique Carrasco MD - 10/16/2024 EXAMINATION: MR THORACIC SPINE WITHOUT CONTRAST HISTORY: ORDERING SYSTEM PROVIDED HISTORY: T7 vertebral body compression without definite fracture line, TECHNOLOGIST PROVIDED HISTORY: Illness/Other Reason for exam: fell yesterday and now c/o pain Encounter Type: Initial Additional signs and symptoms: n ORDERING SYSTEM PROVIDED DIAGNOSIS CODES: J96.01 Acute respiratory failure with hypoxia (HCC) J44.1 COPD exacerbation (HCC) L03.90 Cellulitis, unspecified cellulitis site A41.9 Sepsis, due to unspecified organism, unspecified whether acute organ dysfunction present ([facility]) S22.060A Compression fracture of T7 vertebra, initial encounter ([facility]) COMPARISON: CT chest, abdomen and pelvis, 10/15/2024. TECHNIQUE: Multiplanar, multisequence MRI imaging of the thoracic spine without contrast. FINDINGS: Compression fracture at the T7 level appears to be subacute. There is 55% decreased vertebral body height centrally. There is bone marrow edema with hyperintense signal on STIR throughout the vertebral body. The pedicles appear to be intact. There is no significant retropulsion of bone fragments into the spinal canal. There is some disc bulge at T6-7 mildly effacing the ventral aspect of the thecal sac without compression of the spinal cord. There is no epidural hematoma. No other thoracic spine compression fractures or bone marrow signal abnormalities. Mild multilevel degenerative disc disease. No significant spinal stenosis at the remainder of the thoracic spine levels. No spinal cord compression. No abnormal signal in the thoracic spinal cord. IMPRESSION: 1. Compression fracture at T7 appears to be likely subacute. There is bone marrow edema throughout the vertebral body and approximately 55% decreased vertebral body height. No significant retropulsion of bone fragments into the canal. There is some mild disc bulge at T6-7 mildly effacing the ventral aspect of the thecal sac without spinal cord compression. 2. No other compression fractures. No epidural hematoma. 3. No spinal cord compression or abnormal signal in the thoracic spinal cord. [employer]/alt Workstation ID: [id number] [facility] Radiology Study observation (narrative) [facility] MR Thoracic spine WO contras tOrdered By: Enrique Carrasco on 10-16-2024 [facility] Work Phone: Vitamin D, Total, 25-OHon 25-hydroxyvitamin D [Mass/Vol] 11 ng/mL Low 20 - 100 ng/mL [facility] Interpretation and review of laboratory results Abnormal [facility] Vitamin D Expected V alues Deficiency: 0-10 Insufficiency: 10-20 Sufficient: 20-100 Toxicity: >100 [facility] BLOOD CULTURE AEROBIC/ANAERO BICon 10-15-2024 BLOOD CULTURE AEROBIC/ANAEROBIC BLOOD CULTURE No Growth after 5 days Normal [facility] Comment on above: Performed By: #### 4 1959 ####[facility] [address], [place] [address] Jack Mendoza M.D. [id number] BLOOD CULTURE AEROBIC/ANAEROBIC BLOOD CULTURE No Growth after 5 days Normal [facility] Comment on above: Performed By: #### 4 [id number] ####[facility] [address] [place], [place] [address] Jack Mendoza M.D. [id number] CBC Auto Differentialon 09-23 Basophils (Bld) [#/Vol] 0.02 10*3/uL [facility] Basophils/100 WBC (Bld) 0.4 % [facility] Eosinophils (Bld) [#/Vol] 0.03 10*3/[facility]L [facility] Eosinophils/100 WBC (Bld) 0.6 % [facility] Erythrocyte distribution width (RBC) [Entitic vol] 16.8 % High 11.6 - 14.8 % [facility] Hematocrit (Bld) [Volume fraction] 36.9 % Low 41.0 - 53.0 % [facility] Hemoglobin (Bld) [Mass/Vol] 10.9 g/dL Low 13.5 - 17.5 g/dL [facility] Immature granulocytes (Bld) [#/Vol] 0.01 10*3/uL [facility] Immature granulocytes/100 WBC (Bld) 0.2 % [facility] Comment on above: The IG parameter is the percentage of metamyelocytes, myelocytes and promyelocytes. An immature granulocyte count (IG) of 1% or more suggests the possibility of infection, an IG count of 3% is very likely related to an infection. Lymphocytes (Bld) [#/Vol] 0.39 10*3/uL Low [facility] Lymphocytes/100 WBC (Bld) 7.8 % [facility] MCH (RBC) [Entitic mass] 20.8 pg Low 26.0 - 34.0 pg [facility] MCHC (RBC) [Mass/Vol] 29.5 g/dL Low 31.0 - 37.0 g/dL [facility] MCV (RBC) [Entitic vol] 70.6 fL Low 80.0 - 100.0 fL [facility] Monocytes (Bld) [#/Vol] 0.35 10*3/uL [facility] Monocytes/100 WBC (Bld) 7 % [facility] Neutrophils (Bld) [#/Vol] 4.18 10*3/uL [facility] Neutrophils/100 WBC (Bld) 84 % [facility] Comment on above: Peripheral smear rev iewed manually Nucleated RBC (Bld) [#/Vol] 0 10*3/uL [facility] Nucleated RBC/100 WBC (Bld) [Ratio] 0 % [facility] Platelet mean volume (Bld) [Entitic vol] 9.1 fL Low 9.4 - 12.4 fL [facility] Platelets (Bld) [#/Vol] 121 10*3/uL Low [facility] RBC (Bld) [#/Vol] 5.23 10*6/uL [facility] ealth WBC (Bld) [#/Vol] 4.98 10*3/uL [facility] CBC WITH AUTO DIFFERENTIALon 10-15-2024 AUTO NRBC 0.0 % [facility] Comment on above: Performed By: #### L [id number] #### LAB [address] [place] [address] Jack Mendoza M.D. [id number] AUTO NRBC ABS COUNT 0.00 K/mcL Normal 0.00-0.00 [facility] Comment on above: Performed By: #### L [id number] #### LAB [address] [place] [address] Jack Mendoza M.D. [id number] BASOPHILS ABSOLUTE COUNT 0.02 K/mcL Normal 0.00-0.30 [facility] Comment on above: Performed By: #### L [id number] #### LAB [address] [place] [address] Jack Mendoza M.D. [id number] Basophils/100 WBC (Bld) 0.4 % [facility] Comment on above: Performed By: #### L [id number] #### LAB [address] [place] [address] Jack Mendoza M.D. [id number] Eosinophils (Bld) [#/Vol] 0.03 10*3/uL Normal 0.00-0.50 [facility] Comment on above: Performed By: #### L [id number] #### LAB [address] [place] [address] Jack Mendoza M.D. [id number] Eosinophils/100 WBC (Bld) 0.6 % [facility] Comment on above: Performed By: #### L [id number] #### LAB [address] [address] Jack Mendoza M.D. [id number] Erythrocyte distribution width (RBC) [Ratio] 16.8 % High 11.6-14.8 [facility] Comment on above: Performed By: #### L [id number] #### LAB [address] [address] Jack Mendoza M.D. [id number] Hematocrit (Bld) [Volume fraction] 36.9 % Low 41.0-53.0 [facility] Comment on above: Performed By: #### L [id number] #### LAB [address] [address] Jack Mendoza M.D. [id number] Hemoglobin (Bld) [Mass/Vol] 10.9 g/dL Low 13.5-17.5 [facility] Comment on above: Performed By: #### L [id number] #### LAB [address] [address] Jack Mendoza M.D. [id number] IG ABSOLUTE 0.01 K/mcL Normal 0.00-0.30 [facility] Comment on above: Performed By: #### L [id number] #### LAB [address] [address] Jack Mendoza M.D. [id number] IG PERCENT 0.20 % Normal [facility] Comment on above: Result Comment: The IG parameter is the percentage of metamyelocytes, myelocytes and promyelocytes. An immature granulocyte count (IG) of 1% or more suggests the possibility of infection, an IG count of 3% is very likely related to an infection. Performed By: #### L [id number] #### LAB [address] [place] [address] Jack Mendoza M.D. [id number] Lymphocytes (Bld) [#/Vol] 0.39 10*3/uL Low 0.90-4.00 [facility] Comment on above: Performed By: #### L [id number] #### LAB [address] [place] [address] Jack Mendoza M.D. [id number] Lymphocytes/100 WBC (Bld) 7.8 % Normal [facility] Comment on above: Performed By: #### L [id number] #### LAB [address] [address] Jcak Mendoza M.D. [id number] MCH (RBC) [Entitic mass] 20.8 pg Low 26.0-34.0 [facility] Comment on above: Performed By: #### L [id number] ####[facility] LAB [address] [address] Jack Mendoza M.D. [id number] MCV (RBC) [Entitic vol] 70.6 fL Low 80.0-100.0 [facility] Comment on above: Performed By: #### L [id number] #### LAB [address] [address] Jack Mendoza M.D. [id number] MEAN CORPUSCULAR HEMOGLOBIN CONC 29.5 g/dL Low 31.0-37.0 [facility] Comment on above: Performed By: #### L [id number] #### LAB [address] [address] Jack Mendoza M.D. [id number] Monocytes (Bld) [#/Vol] 0.35 10*3/uL Normal 0.30-0.90 [facility] Comment on above: Performed By: #### L [id number] #### LAB [address] [address] Jack Mendoza M.D. [id number] Monocytes/100 WBC (Bld) 7.0 % Normal [facility] Comment on above: Performed By: #### L [id number] ####[facility] LAB [address] [address] Jack Mendoza M.D. [id number] NEUTROPHILS ABSOLUTE COUNT 4.18 K/mcL Normal 1.70-7.00 [facility] Comment on above: Performed By: #### L [id number] #### LAB [address] [address] Jack Mendoza M.D. [id number] Neutrophils/100 WBC (Bld) 84.0 % Normal [facility] Comment on above: Result Comment: Tiffany pheral smear reviewed manually Performed By: #### L [id number] #### LAB [address] [address] Jack Mendoza M.D. [id number] Platelet mean volume (Bld) [Entitic vol] 9.1 fL Low 9.4-12.4 [facility] Comment on above: Performed By: #### L [id number] #### LAB [address] [address] Jack Mendoza M.D. [id number] Platelets (Bld) [#/Vol] 121 10*3/uL Low 150-400 [facility] Comment on above: Performed By: #### L [id number] #### LAB [address] [address] Jack Mendoza M.D. [id number] RBC (Bld) [#/Vol] 5.23 10*6/uL Normal 4.50-5.90 [facility] Comment on above: Performed By: #### L [id number] #### LAB [address] [address] Jack Mendoza M.D. [id number] WBC (Bld) [#/Vol] 4.98 10*3/uL Normal 4.50-11.00 [facility] Comment on above: Performed By: #### L [id number] #### LAB [address] [address] Jack Mendoza M.D. [id number] CBC and Diff Morphologyon Dacrocytes LM Ql (Bld) Few [facility] Ovalocytes LM Ql (Bld) Moderate [facility] Platelets LM Ql (Bld) Decreased Abnormal Normal [facility] Polychromasia LM Ql (Bld) Few [facility] RBC morphology finding Nom (Bld) See Comment [facility] Comment on above: RBC Indices confirme d with manual peripheral smear review. Stomatocytes LM Ql (Bld) Few [facility] Target cells LM Ql (Bld) Few [facility] COMPREHENSIVE METABOLIC PANE Ras 10-15-2024 Albumin [Mass/Vol] 3.5 g/dL Normal 3.2-5.2 [facility] Comment on above: Order Comment: [facility] has implemented the eGFR calculation approach that does not have a coefficient for race that conforms to the NKF-ASN Task Force Recommendations. Performed By: #### 4 [id number] #### LAB [address] [address] Jack Mendoza M.D. [id number] ALP [Catalytic activity/Vol] 89 U/L Normal 40-150 [facility] Comment on above: Order Comment: [facility] has implemented the eGFR calculation approach that does not have a coefficient for race that conforms to the NKF-ASN Task Force Recommendations. Performed By: #### 4 [id number] #### LAB [address] [address] Jack Mendoza M.D. [id number] ALT [Catalytic activity/Vol] 15 U/L [facility] Comment on above: Order Comment: [facility] has implemented the eGFR calculation approach that does not have a coefficient for race that conforms to the NKF-ASN Task Force Recommendations. Performed By: #### 4 6137 #### LAB [address] [address] Jack Mendoza M.D. [id number] Anion gap [Moles/Vol] 14 mmol/L Normal 10-20 [facility] Comment on above: Order Comment: [facility] has implemented the eGFR calculation approach that does not have a coefficient for race that conforms to the NKF-ASN Task Force Recommendations. Performed By: #### 4 6189 #### LAB [address] [address] Jack Mendoza M.D. [id number] AST [Catalytic activity/Vol] 28 U/L [facility] Comment on above: Order Comment: [facility] has implemented the eGFR calculation approach that does not have a coefficient for race that conforms to the NKF-ASN Task Force Recommendations. Performed By: #### 4 [id number] #### LAB [address] [address] Jack Mendoza M.D. [id number] Bilirubin [Mass/Vol] 0.7 mg/dL Normal 0.0-1.3 [facility] Comment on above: Order Comment: [facility] has implemented the eGFR calculation approach that does not have a coefficient for race that conforms to the NKF-ASN Task Force Recommendations. Performed By: #### 4 [id number] #### LAB [address] [address] Jack Mendoza M.D. [id number] Calcium [Mass/Vol] 8.8 mg/dL Normal 8.4-10.2 [facility] Comment on above: Order Comment: [facility] has implemented the eGFR calculation approach that does not have a coefficient for race that conforms to the NKF-ASN Task Force Recommendations. Performed By: #### 4 6126 #### LAB [address] [address] Jack Mendoza M.D. [id number] Chloride [Moles/Vol] 98 mmol/L Normal 98-108 [facility] Comment on above: Order Comment: [facility] has implemented the eGFR calculation approach that does not have a coefficient for race that conforms to the NKF-ASN Task Force Recommendations. Performed By: #### 4 6126 #### LAB [address] [address] Jack Mendoza M.D. [id number] Creatinine [Mass/Vol] 0.69 mg/dL Normal 0.50-1.30 [facility] Comment on above: Order Comment: [facility] has implemented the eGFR calculation approach that does not have a coefficient for race that conforms to the NKF-ASN Task Force Recommendations. Performed By: #### 4 6126 #### LAB [address] [address] Jack Mendoza M.D. [id number] EGFR 107 mL/min/1.73 m2 Normal >=60 [facility] Comment on above: Order Comment: [facility] has implemented the eGFR calculation approach that does not have a coefficient for race that conforms to the NKF-ASN Task Force Recommendations. Result Comment: Ashley mated GFR was calculated using the 2020 CKD-EPI creatinine equation. Performed By: #### 4 [id number] #### LAB [address] [address] Jack Mendoza M.D. [id number] Glucose [Mass/Vol] 139 mg/dL High 65-99 [facility] Comment on above: Order Comment: [facility] has implemented the eGFR calculation approach that does not have a coefficient for race that conforms to the NKF-ASN Task Force Recommendations. Performed By: #### 4 6126 #### LAB [address] [address] Jack Mendoza M.D. [id number] HCO3 (Bld) [Moles/Vol] 33 mmol/L High 21-32 [facility] Comment on above: Order Comment: [facility] has implemented the eGFR calculation approach that does not have a coefficient for race that conforms to the NKF-ASN Task Force Recommendations. Performed By: #### 4 6126 #### LAB [address] [address] Jack Mendoza M.D. [id number] Potassium [Moles/Vol] 4.1 mmol/L Normal 3.5-5.1 [facility] Comment on above: Order Comment: [facility] has implemented the eGFR calculation approach that does not have a coefficient for race that conforms to the NKF-ASN Task Force Recommendations. Performed By: #### 4 6126 #### LAB [address] [address] Jack Mendoza M.D. [id number] Protein [Mass/Vol] 7.5 g/dL Normal 6.0-8.0 [facility] Comment on above: Order Comment: [facility] has implemented the eGFR calculation approach that does not have a coefficient for race that conforms to the NKF-ASN Task Force Recommendations. Performed By: #### 4 0826 #### LAB [address] [id number] Jack Mendoza M.D. [id number] Sodium [Moles/Vol] 141 mmol/L Normal 135-145 [facility] Comment on above: Order Comment: [facility] has implemented the eGFR calculation approach that does not have a coefficient for race that conforms to the NKF-ASN Task Force Recommendations. Performed By: #### 4 6126 #### LAB [address] [address] Jack Mendoza M.D. [id number] Urea nitrogen [Mass/Vol] 16 mg/dL Normal 8-25 [facility] Comment on above: Order Comment: [facility] has implemented the eGFR calculation approach that does not have a coefficient for race that conforms to the NKF-ASN Task Force Recommendations. Performed By: #### 4 6126 #### LAB [address] [address] Jack Mendoza M.D. [id number] Urea nitrogen/Creatinine [Mass ratio] 23.2 mg/mg High 10.0-20.0 [facility] Comment on above: Order Comment: [facility] has implemented the eGFR calculation approach that does not have a coefficient for race that conforms to the NKF-ASN Task Force Recommendations. Performed By: #### 4 6126 #### LAB [address] [address] Jack Mendoza M.D. [id number] CONSULTon 10-15-2024 CONSULT Normal [facility] COVID-19/INFLUENZA A,B MOLEC ULARon 10-15-2024 SARS-CoV-2 (COVID-19) Ab IA Ql SARS-COV-2 (URSZULA) Not Detected INFLUENZA A (URSZULA) Not Detected INFLUENZA B (URSZULA) Not Detected Normal Not Detected [facility] Comment on above: Performed By: #### L [id number] #### LAB [address] [address] Jack Mendoza M.D. [id number] CT Abdomen and Pelvis W cont rast Charli 10-15-2024 1. Suboptimal pulmonary artery opacification, but no evidence of pulmonary emboli or other acute thoracic findings. 2. Cirrhotic liver morphology similar to prior with stigmata of portal venous hypertension. 3. No acute intraabdominal findings otherwise. 4. New fracture of T7. Workstation ID: [id number] link bird EXAMINATION: CTA PULM ART AND CT ABD PELVIS WITH IV CONTRAST HISTORY: sob; suspected PE and abdominal pain COMPARISON: 07/02/2024 and 10/04/2023 TECHNIQUE: CT dose reduction technique was used, including Automated Exposure Control. FINDINGS: Chest: Suboptimal opacification of pulmonary arteries with Hounsfield unit measurement of the contrast in the main pulmonary artery measuring between 160-180. No evidence of filling defects however in the imaged pulmonary arteries to suggest emboli. Great vessels display a normal course and caliber with mild thoracic aorta and moderate coronary atherosclerosis. Heart is nonenlarged. No supraclavicular, axillary, mediastinal or hilar adenopathy is present. There is a small hiatal hernia. There is mild atelectasis/scarring in the right lung base. Lungs are otherwise well aerated without consolidation, pneumothorax or effusion. Abdomen/pelvis: Similar chronic findings in the abdomen to include cirrhotic liver morphology, splenomegaly and upper abdomen varices and compatible with stigmata of portal venous hypertension. Numerous scattered colonic diverticula are again seen without CT findings of diverticulitis. There is mild scattered ascites. Mildly enlarged lymph nodes are present in the abdomen especially the right upper quadrant and are similar to previous study. Pancreas is atrophic. Remaining visceral organs of the abdomen and pelvis appear normal as seen. There is no free intraperitoneal air. Great vessels display a normal course and caliber. Mild atherosclerosis. Bones: There is severe left shoulder osteoarthritis and multiple old healed rib fractures. There is a new fracture of T7. This was not present on the prior study. Old compression fractures of T1 and T2 are stable. Moderate degenerative changes of the spine. link bird Fransisco Camlio MD - 10/15/2024 EXAMINATION: CTA PULM ART AND CT ABD PELVIS WITH IV CONTRAST HISTORY: sob; suspected PE and abdominal pain COMPARISON: 07/02/2024 and 10/04/2023 TECHNIQUE: CT dose reduction technique was used, including Automated Exposure Control. FINDINGS: Chest: Suboptimal opacification of pulmonary arteries with Hounsfield unit measurement of the contrast in the main pulmonary artery measuring between 160-180. No evidence of filling defects however in the imaged pulmonary arteries to suggest emboli. Great vessels display a normal course and caliber with mild thoracic aorta and moderate coronary atherosclerosis. Heart is nonenlarged. No supraclavicular, axillary, mediastinal or hilar adenopathy is present. There is a small hiatal hernia. There is mild atelectasis/scarring in the right lung base. Lungs are otherwise well aerated without consolidation, pneumothorax or effusion. Abdomen/pelvis: Similar chronic findings in the abdomen to include cirrhotic liver morphology, splenomegaly and upper abdomen varices and compatible with stigmata of portal venous hypertension. Numerous scattered colonic diverticula are again seen without CT findings of diverticulitis. There is mild scattered ascites. Mildly enlarged lymph nodes are present in the abdomen especially the right upper quadrant and are similar to previous study. Pancreas is atrophic. Remaining visceral organs of the abdomen and pelvis appear normal as seen. There is no free intraperitoneal air. Great vessels display a normal course and caliber. Mild atherosclerosis. Bones: There is severe left shoulder osteoarthritis and multiple old healed rib fractures. There is a new fracture of T7. This was not present on the prior study. Old compression fractures of T1 and T2 are stable. Moderate degenerative changes of the spine. IMPRESSION: 1. Suboptimal pulmonary artery opacification, but no evidence of pulmonary emboli or other acute thoracic findings. 2. Cirrhotic liver morphology similar to prior with stigmata of portal venous hypertension. 3. No acute intraabdominal findings otherwise. 4. New fracture of T7. Workstation ID: [id number] [facility] Radiology Study observation (narrative) [facility] CT Abdomen and Pelvis W cont rast IVOrdered By: Fransisco Camilo on 10-15-2024 [facility] Work Phone: CT THORACIC AND LUMBAR SPINE RECONSTRUCTEDon 10-15-2024 CT THORACIC AND LUMBAR SPINE RECONSTRUCTED Normal [facility] Comment on above: Order Comment: Injur y/Trauma or Illness?:Injury/TraumaHow long have you had these symptoms (acute/chronic)?:AcuteReason for exam?:upper and lower back pain, fallType of Exam?:InitialMechanism of injury?:fall CT Thoracic and lumbar spine WO contraston 10-15-2024 Radiology Study observation (narrative) [facility] CTA PULM ART AND CT ABD PELV IS WITH IV CONTRASTon 10-15-[address] ABD PELVIS WITH IV CONTRAST Normal [facility] Comment on above: Order Comment: Injur y/Trauma or Illness?:Illness/OtherHow long have you had these symptoms (acute/chronic)?:AcuteReason for exam?:suspected PE and abdominal pain, sobType of Exam?:InitialAdditional signs and symptoms?:fall, previous leg infection Comprehensive metabolic 2000 panelon 10-15-2024 Albumin [Mass/Vol] 3.5 g/dL 3.2 - 5.2 g/dL [facility] ALP [Catalytic activity/Vol] 89 U/L 40 - 150 U/L [facility] ALT [Catalytic activity/Vol] 15 U/L [facility] Anion gap [Moles/Vol] 14 mmol/L 10 - 20 mmol/L [facility] AST [Catalytic activity/Vol] 28 U/L [facility] Bilirubin [Mass/Vol] 0.7 mg/dL 0.0 - 1 .3 mg/dL [facility] Calcium [Mass/Vol] 8.8 mg/dL 8.4 - 10. 2 mg/dL [facility] Chloride [Moles/Vol] 98 mmol/L 98 - 10 8 mmol/L [facility] Creatinine [Mass/Vol] 0.69 mg/dL 0.50 - 1.30 mg/dL [facility] GFR/1.73 sq M.predicted CKD-EPI (S/P/Bld) [Vol rate/Area] 107 - PINF [facility] Comment on above: Estimated GFR was ca lculated using the 2020 CKD-EPI creatinine equation. Glucose [Mass/Vol] 139 mg/dL High 65 - 99 mg/dL [facility] HCO3 [Moles/Vol] 33 mmol/L High 21 - 32 mmol/L [facility] Interpretation and review of laboratory results Abnormal [facility] Potassium [Moles/Vol] 4.1 mmol/L 3.5 - 5.1 mmol/L [facility] Protein [Mass/Vol] 7.5 g/dL 6.0 - 8.0 g/dL [facility] Sodium [Moles/Vol] 141 mmol/L 135 - 145 mmol/L [facility] Urea nitrogen [Mass/Vol] 16 mg/dL 8 - 25 mg/dL [facility] Urea nitrogen/Creatinine [Mass ratio] 23.2 mg/mg High 10.0 - 20.0 [facility] has implemented the eGFR calculation approach that does not have a coefficient for race that conforms to the NKF-ASN Task Force Recommendations. [facility] Critical Careon 10-15-2024 Jose Lozano MD 11:52 PM Critical Care Performed by: Jose Lozano MD Authorized by: Jose Lozano MD Total critical care time: 50 minutes Critical care was time spent personally by me on the following activities: examination of patient, pulse oximetry and re-evaluation of patient's condition. [facility] D-DIMER, QUANTITATIVEon 09-23 D-DIMER QUANTITATIVE 13.56 mcg/mL FEU High 0.27-0.49 [facility] Comment on above: Order Comment: A D-d inessa concentration of <0.5 micrograms per milliliter FEU is considered a low probability for pulmonary embolus (PE) and deep venous thrombosis (DVT). Results of this test should always be interpreted in conjunction with the patient's medical history,clinical presentation, and other findings. Clinical diagnosis should not be based on the results of the D-dimer alone. Performed By: #### 4 [id number] #### LAB [address], [place] [address] Jack Mendoza M.D. [id number] D-Dimer, QuantitativeOrdered By: Molly Costa on 10-15-2024 Fibrin D-dimer FEU (PPP) [Mass/Vol] 13.56 High [facility] Interpretation and review of laboratory results Abnormal [facility] A D-dimer concentrat ion of <0.5 micrograms per milliliter FEU is considered a low probability for pulmonary embolus (PE) and deep venous thrombosis (DVT). Results of this test should always be interpreted in conjunction with the patient's medical history,clinical presentation, and other findings. Clinical diagnosis should not be based on the results of the D-dimer alone. [facility] ED Prov Noteon 10-15-2024 ED Prov Note Normal [facility] EKGon 10-15-2024 [facility] Influenza virus A and B RNA and SARS-CoV-2 (COVID-19) N gene panel HERMAN+probe (Resp)Ordered By: Sara Barba on 10-15-2024 FLUAV RNA HERMAN+probe Ql (Unsp spec) Not detected Not Detected [facility] FLUBV RNA HERMAN+probe Ql (Unsp spec) Not detected Not Detected [facility] SARS-CoV-2 (COVID-19) RNA HERMAN+probe Ql (Resp) Not detected Not Detected [facility] MORPHOLOGYon 10-15-2024 OVAL SCAN Moderate Normal [facility] Comment on above: Performed By: #### L [id number] ####[facility] LAB [address] [address] Jack Mendoza M.D. [id number] PLATELET ESTIMATE Decreased Abnormal Normal [facility] Comment on above: Performed By: #### L [id number] ####[facility] LAB [address] [address] Jack Mendoza M.D. [id number] POLY SCAN Few Normal [facility] Comment on above: Performed By: #### L [id number] ####[facility] LAB [address] [address] Jack Mendoza M.D. [id number] RBC MORPH SCAN See Comment Normal [facility] Comment on above: Result Comment: RBC Indices confirmed with manual peripheral smear review. Performed By: #### L [id number] ####[facility] LAB [address] [address] Jack Mendoza M.D. [id number] STOMATOCYTES Few Normal [facility] Comment on above: Performed By: #### L [id number] ####[facility] LAB [address] [address] Jack Mendoza M.D. [id number] TARGET CELL SCAN Few Normal [facility] Comment on above: Performed By: #### L [id number] ####[facility] LAB [address] [address] Jack Mendoza M.D. [id number] TEAR DROP CELL SCAN Few Normal [facility] Comment on above: Performed By: #### L [id number] ####[facility] LAB [address] [address] Jack Mendoza M.D. [id number] MRSA DNA AMPLIFIED PROBEon 0 10-15-2024 MRSA DNA AMPLIFIED PROBE Negative Normal Not Detected, MRSA NEGATIVE [facility] Comment on above: Performed By: #### 4 [id number] #### LAB [address], [place] [address] Jack Mendoza M.D. [id number] MRSA DNA Amplified Probeon 0 10-15-2024 MRSA DNA HERMAN+probe Ql (Unsp spec) Negative Not Detected, MRSA NEGATIVE [facility] MRSA DNA HREMAN+probe Ql (Unsp spec)on 10-15-2024 Interpretation and review of laboratory results Normal [facility] NT PRO BNPon 10-15-2024 Natriuretic peptide B (Bld) [Mass/Vol] 163 pg/mL Normal 0-300 [facility] Comment on above: Order Comment: Pride Study Cut-offsRule In:< /= 50 Years >450 pg/mL51 Years - 75 Years >900 pg/mL76 Years - 99 Years >1800 pg/mLRule Out:All patients <300 pg/mL Performed By: #### 4 7395 #### LAB [address] [place], [place] [address] Jack Mendoza M.D. [id number] NT Pro BNPon 10-15-2024 Natriuretic peptide.B prohormone N-Terminal [Mass/Vol] 163 pg/mL 0 - 300 pg/mL [facility] Natriuretic peptide.B prohor randi N-Terminal [Mass/Vol]on 10-15-2024 Pride Study Cut-offs Rule In: < /= 50 Years >450 pg/mL 51 Years - 75 Years >900 pg/mL 76 Years - 99 Years >1800 pg/mL Rule Out: All patients <300 pg/mL [facility] No Panel Informationon 10-15 1. No acute fracture or dislocation of the pelvis or either tibia or fibula is seen. If there is concern for an occult injury of the pelvis, cross-sectional imaging is recommended. Otherwise, if pain persists, repeat radiographs are recommended in 7-10 days. [facility] Workstation ID: [id number] [facility] EXAMINATION: XR PELVIS 1 VIEW (STANDARD); XR TIBIA FIBULA RIGHT 2 VIEWS; XR TIBIA FIBULA LEFT 2 VIEWS 10/15/2024 6:04 pm HISTORY: ORDERING SYSTEM PROVIDED HISTORY: fall, TECHNOLOGIST PROVIDED HISTORY: Injury/Trauma Reason for exam: fall Cancer History: u Surgery, RadiationHistory: u Encounter Type: Initial Mechanism of injury: fall ORDERING SYSTEM PROVIDED DIAGNOSIS CODES: J96.01 Acute respiratory failure with hypoxia (HCC) J44.1 COPD exacerbation (HCC) L03.90 Cellulitis, unspecified cellulitis site A41.9 Sepsis, due to unspecified organism, unspecified whether acute organ dysfunction present (HCC) COMPARISON: None. FINDINGS: One view of the pelvis and 2 views of each tibia and fibula were obtained. Pelvis: No acute fracture or dislocation is seen. The femoral heads are well seated in the acetabula. There are mild degenerative changes of both sacroiliac joints and both hip joints. The pubic symphysis is preserved. Right tibia and fibula: There are postsurgical changes of a right total knee arthroplasty. No acute fracture or dislocation is seen. There are scattered degenerative changes. Left tibia and fibula: No acute fracture or dislocation is seen. There are scattered degenerative changes. There is remote posttraumatic deformity of the proximal fibula. Rodolfo Mcconnell MD - 10/16/2024 EXAMINATION: XR PELVIS 1 VIEW (STANDARD); XR TIBIA FIBULA RIGHT 2 VIEWS; XR TIBIA FIBULA LEFT 2 VIEWS 10/15/2024 6:04 pm HISTORY: ORDERING SYSTEM PROVIDED HISTORY: fall, TECHNOLOGIST PROVIDED HISTORY: Injury/Trauma Reason for exam: fall Cancer History: u Surgery, RadiationHistory: u Encounter Type: Initial Mechanism of injury: fall ORDERING SYSTEM PROVIDED DIAGNOSIS CODES: J96.01 Acute respiratory failure with hypoxia (HCC) J44.1 COPD exacerbation (HCC) L03.90 Cellulitis, unspecified cellulitis site A41.9 Sepsis, due to unspecified organism, unspecified whether acute organ dysfunction present (HCC) COMPARISON: None. FINDINGS: One view of the pelvis and 2 views of each tibia and fibula were obtained. Pelvis: No acute fracture or dislocation is seen. The femoral heads are well seated in the acetabula. There are mild degenerative changes of both sacroiliac joints and both hip joints. The pubic symphysis is preserved. Right tibia and fibula: There are postsurgical changes of a right total knee arthroplasty. No acute fracture or dislocation is seen. There are scattered degenerative changes. Left tibia and fibula: No acute fracture or dislocation is seen. There are scattered degenerative changes. There is remote posttraumatic deformity of the proximal fibula. IMPRESSION: 1. No acute fracture or dislocation of the pelvis or either tibia or fibula is seen. If there is concern for an occult injury of the pelvis, cross-sectional imaging is recommended. Otherwise, if pain persists, repeat radiographs are recommended in 7-10 days. ANNE/karyn Workstation ID: [id number] [facility] Interpretation and review of laboratory results Abnormal [facility] Interpretation and review of laboratory results Normal [facility] No Panel InformationOrdered By: Rodolfo Garcia on 10-15-2024 [facility] Work Phone: Obtain venous blood gases an d performon 10-15-2024 [facility] POC VENOUS BLOOD GAS PANEL-P MARYANA Ortega 10-15-2024 BASE EXCESS, VENOUS 9.7 High -2.0-2.0 [facility] Comment on above: Performed By: #### 4 8717 ####[facility] [address], [place] [address] Jack Mendoza M.D. [id number] CALCIUM IONIZED 4.5 mg/dL Normal 4.5-5.3 [facility] Comment on above: Performed By: #### 4 8717 ####[facility] [address], [place] [address] Jack Mendoza M.D. [id number] CARBOXYHEMOGLOBIN 2.7 % of total Hb High <=1.5 [facility] Comment on above: Result Comment: Refe rence Ranges:Suburban Non-smokers: <1.5%Smokers: 1.5-5.0%Heavy Smokers: 5.0-9.0% Performed By: #### 4 8717 ####[facility] [address], [place] [address] Jack Mendoza M.D. [id number] Chloride [Moles/Vol] 96 mmol/L Low 98-108 [facility] Comment on above: Performed By: #### 4 8717 ####[facility] [address] [place], [place] [address] Jack Mendoza M.D. [id number] FIO2 21 Normal [facility] Comment on above: Performed By: #### 4 8717 ####[facility] [address] [place] [address] Jack Mendoza M.D. [id number] Glucose [Mass/Vol] 134 mg/dL High 65-99 [facility] Comment on above: Performed By: #### 4 8717 ####[facility] [address] [place] [address] Jack Mendoza M.D. [id number] HCO3 (Bld) [Moles/Vol] 37.3 mmol/L High 24.0-28.0 [facility] Comment on above: Performed By: #### 4 8717 ####[facility] [address] [place] [address] Jack Mendoza M.D. [id number] Hematocrit (Bld) [Volume fraction] 35.1 % Low 41.0-53.0 [facility] Comment on above: Performed By: #### 4 8717 #### LAB [address] [place] [address] Jack Mendoza M.D. [id number] Hemoglobin (Bld) [Mass/Vol] 11.4 g/dL Low 13.5-17.5 [facility] Comment on above: Performed By: #### 4 8717 #### LAB [address] [place] [address] Jack Mendoza M.D. [id number] LACTIC ACID, WHOLE BLOOD 1.1 mmol/L Normal 0.6-2.0 [facility] Comment on above: Performed By: #### 4 8717 ####[facility] [address] [place] [address] Jack Mendoza M.D. [id number] METHEMOGLOBIN < Normal 0.0-2.0 [facility] Comment on above: Performed By: #### 4 8717 ####[facility] [address] [place] [address] Jack Mendoza M.D. [id number] O2HB 55.3 % Normal No established reference range [facility] Comment on above: Performed By: #### 4 8717 ####[facility] [address] [place] [address] Jack Mendoza M.D. [id number] Oxygen saturation in Blood 57.2 % Normal 40.0-70.0 [facility] Comment on above: Performed By: #### 4 8717 #### LAB [address] [place] [address] Jack Mendoza M.D. [id number] PCO2 VENOUS 65.4 mm Hg High 41.0-51.0 [facility] Comment on above: Performed By: #### 4 8717 ####[facility] [address] [place] [address] Jack Mendoza M.D. [id number] PH VENOUS 7.36 Normal 7.32-7.42 [facility] Comment on above: Performed By: #### 4 8717 #### LAB [address] [place] [address] Jack Mendoza M.D. [id number] PO2 VENOUS 34 mm Hg Normal 25-40 [facility] Comment on above: Performed By: #### 4 8717 ####[facility] [address] [place] [address] Jack Mendoza M.D. [id number] Potassium [Moles/Vol] 3.9 mmol/L Normal 3.5-5.1 [facility] Comment on above: Performed By: #### 4 8717 #### LAB [address] [place] [address] Jack Mendoza M.D. [id number] Sodium [Moles/Vol] 142 mmol/L Normal 135-145 [facility] [place] Comment on above: Performed By: #### 4 8717 ####[facility] [address] [place] [address] Jack Mendoza M.D. [id number] SPECIMEN SOURCE RADIANCE Not specified Normal [facility] Comment on above: Performed By: #### 4 8717 #### LAB [address] [place] [address] Jack Mendoza M.D. [id number] POC Venous Blood Gas Panel-[facility] 10-15-2024 Base excess Calc (BldV) [Moles/Vol] 9.7 mmol/L High -2.0 - 2.0 [facility] Calcium.ionized [Mass/Vol] 4.5 mg/dL 4.5 - 5.3 mg/dL [facility] Carboxyhemoglobin (BldA) [Mass fraction] 2.7 [facility] Comment on above: Reference Ranges: [facility] Non-smokers: <1.5% Smokers: 1.5-5.0% Heavy Smokers: 5.0-9.0% CO2 (BldV) [Partial pressure] 65.4 mm[Hg] High [facility] Glucose post fast [Mass/Vol] 134 mg/dL High 65 - 99 mg/dL [facility] Hematocrit (BldA) [Volume fraction] 35.1 % Low 41.0 - 53.0 % [facility] Inhaled oxygen concentration 21 % [facility] Interpretation and review of laboratory results Abnormal [facility] Lactate [Moles/Vol] 1.1 mmol/L 0.6 - 2. 0 mmol/L [facility] Methemoglobin (BldA) [Mass fraction] % 0.0 - 2.0 % [facility] Oxygen (BldV) [Partial pressure] 34 mm[Hg] [facility] Oxygen saturation in Venous blood 57.2 % 40.0 - 70.0 % [facility] Oxyhemoglobin (BldA) [Mass fraction] 55.3 % No established reference range [facility] pH (BldV) 7.36 [pH] 7.32 - 7.42 [facility] Specimen source Nom (Unsp spec) Not specified [facility] TROPONINon 10-15-2024 TROPONIN T DELTA CHANGE INTERPRETATION Possible acute cardiac injury. Consider additional troponin testing and correlate with clinical factors. Normal [facility] Comment on above: Performed By: #### 4 6605 #### LAB [address], [place] [address] Jack Mendoza M.D. [id number] TROPONIN T DELTA DIFFERENCE 10 ng/L Off scale high < = -/+ 7 change [facility] Comment on above: Performed By: #### 4 6608 #### LAB [address] [place], [place] [address] Jack Mendoza M.D. [id number] TROPONIN T NG/L 20 ng/L Normal <=22 [facility] Comment on above: Performed By: #### 4 6608 #### LAB [address] [place] [address] Jack Mendoza M.D. [id number] BASELINE TROPONIN T NG/L 10 ng/L Normal <=22 [facility] Comment on above: Performed By: #### 4 6608 #### LAB [address] [place] [address] Jack Mendoza M.D. [id number] TROPONIN T INTERPRETATION Normal Normal [facility] Comment on above: Performed By: #### 4 6608 #### LAB [address] [place] [address] Jack Mendoza M.D. [id number] Troponin x 2 (Now and Repeat in 3 hours)Ordered By: Joslyn Page on 10-15-2024 [facility] Troponin T 10 ng/L Critically high < = -/+ 7 change [facility] Interp Troponin T Delta Change Possible acute cardiac injury. Consider additional troponin testing and correlate with clinical factors. [facility] Interpretation and review of laboratory results Abnormal [facility] Troponin T.cardiac High sensitivity method [Mass/Vol] 20 ng/L NINF - 22 ng/L [facility] Troponin x 2 (Now and Repeat in 3 hours)on 10-15-2024 Troponin T 10 ng/L NINF - 22 ng/L [facility] Troponin T Interpretation Normal [facility] VITAMIN D, TOTAL, 25-[place]on VITAMIN D 25-HYDROXY 11 ng/mL Low 20-100 [facility] Comment on above: Order Comment: Vitam in D Expected ValuesDeficiency: 0-10Insufficiency: 10-20Sufficient: 20-100Toxicity: >100 Performed By: #### 4 6678 #### LAB [address] [place] [address] Jack Mendoza M.D. [id number] XR CHEST PA/APon 10-15-2024 XR CHEST PA/AP Normal [facility] Comment on above: Order Comment: Injur y/Trauma or Illness?:Illness/OtherHow long have you had these symptoms (acute/chronic)?:AcuteReason for exam?:shortness of breathHistory of cancer?:uSurgeries, chemotherapy, or radiation?:uType of Exam?:InitialAdditional signs and symptoms?:chest pain XR Chest PA and Abdomen APon 10-15-2024 No acute cardiopulmonary process. Workstation ID: [id number] link bird EXAMINATION: XR CHEST PA/AP HISTORY: ORDERING SYSTEM PROVIDED HISTORY: Chest Pain, TECHNOLOGIST PROVIDED HISTORY: Illness/Other Reason for exam: shortness of breath Cancer History: u Surgery, RadiationHistory: u Encounter Type: Initial Additional signs and symptoms: chest pain ORDERING SYSTEM PROVIDED DIAGNOSIS CODES: J96.01 Acute respiratory failure with hypoxia (HCC) J44.1 COPD exacerbation (HCC) L03.90 Cellulitis, unspecified cellulitis site A41.9 Sepsis, due to unspecified organism, unspecified whether acute organ dysfunction present (HCC) COMPARISON: 07/02/2024 FINDINGS: One-view chest x-ray. No pneumothorax, pleural effusion or focal airspace consolidation. Heart is normal in size. Bony thorax is unremarkable. [facility] Mariaelena Thompson MD - 10/15/2024 EXAMINATION: XR CHEST PA/AP HISTORY: ORDERING SYSTEM PROVIDED HISTORY: Chest Pain, TECHNOLOGIST PROVIDED HISTORY: Illness/Other Reason for exam: shortness of breath Cancer History: u Surgery, RadiationHistory: u Encounter Type: Initial Additional signs and symptoms: chest pain ORDERING SYSTEM PROVIDED DIAGNOSIS CODES: J96.01 Acute respiratory failure with hypoxia (HCC) J44.1 COPD exacerbation (HCC) L03.90 Cellulitis, unspecified cellulitis site A41.9 Sepsis, due to unspecified organism, unspecified whether acute organ dysfunction present (HCC) COMPARISON: 07/02/2024 FINDINGS: One-view chest x-ray. No pneumothorax, pleural effusion or focal airspace consolidation. Heart is normal in size. Bony thorax is unremarkable. IMPRESSION: No acute cardiopulmonary process. Workstation ID: [id number] [facility] Radiology Study observation (narrative) [facility] XR Chest PA and Abdomen APOr dered By: Mariaelena Thompson on 10-15-2024 [facility] Work Phone: XR PELVIS 1 VIEW (STANDARD)o n 10-15-2024 XR PELVIS 1 VIEW (STANDARD) Normal [facility] Comment on above: Order Comment: Injur y/Trauma or Illness?:Injury/TraumaHow long have you had these symptoms (acute/chronic)?:AcuteReason for exam?:fallHistory of cancer?:uSurgeries, chemotherapy, or radiation?:uType of Exam?:InitialMechanism of injury?:fall XR Pelvis 1 or 2 [facility] Radiology Study observation (narrative) [facility] XR TIBIA FIBULA LEFT 2 VIEWS on 10-15-2024 XR TIBIA FIBULA LEFT 2 VIEWS Normal [facility] Comment on above: Order Comment: Injur y/Trauma or Illness?:Injury/TraumaHow long have you had these symptoms (acute/chronic)?:AcuteReason for exam?:fallHistory of cancer?:uSurgeries, chemotherapy, or radiation?:uType of Exam?:InitialMechanism of injury?:cellulitus,weeping XR TIBIA FIBULA RIGHT 2 VIEW Son 10-15-2024 XR TIBIA FIBULA RIGHT 2 VIEWS Normal [facility] Comment on above: Order Comment: Injur y/Trauma or Illness?:Injury/TraumaHow long have you had these symptoms (acute/chronic)?:AcuteReason for exam?:fallHistory of cancer?:uSurgeries, chemotherapy, or radiation?:uType of Exam?:InitialMechanism of injury?:cellulitus,weeping XR Tibia and Fibula - left 2 [facility] 10-15-2024 Radiology Study observation (narrative) [facility] XR Tibia and Fibula - right 2 Viewson 10-15-2024 Radiology Study observation (narrative) [facility] BODY FLUID AEROBIC CULTUREon 07-05-2024 BODY FLUID AEROBIC CULTURE AEROBIC CULTURE No Growth after 5 days GRAM STAIN RESULT Few WBC No Organisms Seen Normal [facility] Comment on above: Performed By: #### 4 4016 ####[facility] [address] [place], [place] [address] Venancio Richardson M.D. [id number] Disch Summon 07-05-2024 Disch Summ Normal [facility] SYNOVIAL FLUID ANALYSISon APPEARANCE, SNF Cloudy Abnormal Clear [facility] Comment on above: Performed By: #### 4 5230 #### LAB [address] [place], [place] [address] Jack Mendoza M.D. [id number] CALCIUM PYROPHOSPHATE, SNF Negative Normal Negative [facility] Comment on above: Performed By: #### 4 5230 #### LAB [address] [place] [id number] Jack Mendoza M.D. [id number] COLOR, SNF Light Red Abnormal Straw [facility] Comment on above: Performed By: #### 4 5230 #### LAB [address] [place] [id number] Jack Mendoza M.D. [id number] FIBRIN CLOT, SNF Absent Normal Absent [facility] Comment on above: Performed By: #### 4 5230 #### LAB [address] [place] [address] Jack Mendoza M.D. [id number] Lymphocytes/100 WBC (Bld) 0 % Normal 0-0 [facility] Comment on above: Performed By: #### 4 5230 #### LAB [address] [place] [address] Jack Mendoza M.D. [id number] Monocytes/100 WBC (Bld) 0 % Normal 00 [facility] Comment on above: Performed By: #### 4 5230 #### LAB [address] [place] [address] Jack Mendoza M.D. [id number] Neutrophils/100 WBC (Bld) 100 % High 0-25 [facility] Comment on above: Performed By: #### 4 5230 #### LAB [address] [place] [address] Jack Mendoza M.D. [id number] RBC, SNF [address] /mcL High 0-0 [facility] Comment on above: Performed By: #### 4 5230 #### LAB [address] [place] [address] Jack Mendoza M.D. [id number] URATES, SNF Negative Normal Negative [facility] Comment on above: Performed By: #### 4 5230 #### LAB [address] [place] [address] Jack Mendoza M.D. [id number] WBC/NUC CELLS, SNF [address] /mcL High 0-200 [facility] Comment on above: Result Comment: WBC/ Nuc cell count includes mesothelial and other non-WBC nucleated cells as reflected in the differential. Performed By: #### 4 5230 ####[facility] [address] [place], [place] [address] Jack Mendoza M.D. [id number] Synovial Fluid AnalysisOrder ed By: Sunitha Whitney on 07-05-2024 Appearance (Syn fld) Cloudy Abnormal Clear [facility] Color (Syn fld) Light Red Abnormal [facility] Fibrin Clot, [facility] Absent Absent [facility] Interpretation and review of laboratory results [facility] Lymphocytes/100 WBC Auto (Syn fld) 0 % 0 - 0 % [facility] Monocytes/100 WBC (Syn fld) 0 % 0 - 0 % [facility] Neutrophils/100 WBC (Syn fld) 100 % High 0 - 25 % [facility] Nucleated cells Manual cnt (Syn fld) [#/Vol] 29187 High [facility] Comment on above: WBC/Nuc cell count i ncludes mesothelial and other non-WBC nucleated cells as reflected in the differential. Pyrophosphate crystals LM Ql (Syn fld) Negative Negative [facility] RBC Auto (Syn fld) [#/Vol] 25018 High [facility] Urate crystals LM Ql (Syn fld) Negative Negative [facility] Blastomyces Antibodyon 07-04 B. dermatitidis Ab CF Qn (S) Negative Negative [facility] Comment on above: A single negative re sult does not exclude the diagnosis of blastomycosis. Repeat testing on a new sample in 7-14 days if clinically indicated. Test Performed by: [facility] [address] [place] [address] Materials Engineering Technician: Ty Ordoñez Ph.D.; CLIA# [id number] [facility] Fungitell, Serumon Fungitell Negative Negative [facility] Comment on above: No (1, 3) Beta-D-Glu can detected. This assay does not detect certain fungi, including Cryptococcus species, which produce very low levels of (1, 3) Jwjr-L-Kccnbn (BDG) and the Mucorales (e.g., Lichthemia, Mucor and Rhizopus), which are not known to produce BDG. Additionally, the yeast phase of Blastomyces dermatitidis produces little BDG and may not be detected by this assay. ADDITIONAL INFORMATION This assay was performed using the FDA-cleared Fungitell Assay ([place], [place], [place]), a kinetic YOJANA based on modification of the Limulus Amebocyte Lysate pathway. Test Performed by: [facility] [address] [place] [address] Materials Engineering Technician: Ty Ordoñez Ph.D.; CLIA# [id number] Fungitell Assay 39 pg/mL <60 pg/mL [facility] US Abdomen limitedon 024 Cirrhosis with splenomegaly. No ascites. No cholelithiasis or biliary ductal dilatation. No right hydronephrosis or nephrolithiasis. [employer] Workstation ID: [id number] link bird EXAMINATION: US ABDOMEN LIMITED STUDY HISTORY: ORDERING SYSTEM PROVIDED HISTORY: Ascites, and liver cirrhosis., TECHNOLOGIST PROVIDED HISTORY: Illness/Other Reason for exam: ascites and liver cirrhosis Cancer History: u Surgery, RadiationHistory: u Encounter Type: Initial Additional signs and symptoms: none ORDERING SYSTEM PROVIDED DIAGNOSIS CODES: L03.119 Cellulitis of lower extremity, unspecified laterality R06.02 SOB (shortness of breath) I50.9 Congestive heart failure, unspecified HF chronicity, unspecified heart failure type (HCC) I50.31 Acute heart failure with preserved ejection fraction (HFpEF) (HCC) I50.32 Chronic diastolic congestive heart failure (HCC) D61.818 Pancytopenia (HCC) L03.115 Cellulitis of right lower extremity L08.9 Foot infection E27.40 Adrenal insufficiency (HCC) T84.53XD Infection associated with internal right knee prosthesis, subsequent encounter L97.922 Skin ulcer of left lower leg with fat layer exposed (HCC) L97.519 Plantar ulcer of right foot, unspecified ulcer stage (HCC) G89.4 Chronic pain syndrome I87.2 Venous stasis dermatitis of both lower extremities D69.6 Thrombocytopenia (HCC) T14.8XXA Hematoma K70.31 Alcoholic cirrhosis of liver with ascites (HCC) R90.[address] M89.8X5 Pain of left femur M25.552 Acute pain of left hip I95.9 Hypotension, unspecified hypotension type F14.10 Nondependent cocaine abuse ([facility]) D72.829 Leukocytosis, unspecified type F19.10 Polysubstance abuse (HCC) J41.1 Mucopurulent chronic bronchitis (HCC) E11.9 Type 2 diabetes mellitus without complication, without long-term current use of insulin (HCC) E66.01 Morbid obesity with BMI of 40.0-44.9, adult (HCC) Z68.41 Morbid obesity with BMI of 40.0-44.9, adult (HCC) I48.91 Atrial fibrillation with rapid ventricular response ([facility]) F11.20 Uncomplicated opioid dependence (HCC) J96.11 Chronic respiratory failure with hypoxia and hypercapnia (HCC) J96.12 Chronic respiratory failure with hypoxia and hypercapnia (HCC) I10 Essential hypertension M17.11 Primary osteoarthritis of right knee M21.41 Acquired pes planovalgus of right foot M17.11 Osteoarthritis of right knee, unspecified osteoarthritis type COMPARISON: None. TECHNIQUE: Ultrasound of the right upper quadrant abdomen. FINDINGS: Liver: Normal size, right hepatic lobe measures 16.9 cm. Diffuse increased hepatic echotexture coarsening with nodular contour, compatible with cirrhosis. Gallbladder: No cholelithiasis, pericholecystic fluid or gallbladder wall thickening. Common bile duct: Normal in diameter, measuring 0.4 cm. Right kidney: Normal in size and echogenicity measuring 11.5 x 6.2 x 5.3 cm. No hydronephrosis or renal calculus. Miscellaneous: Pancreas is obscured by bowel gas. Visualized inferior vena cava is patent. Miscellaneous: Incidental splenomegaly, measures 22.4 x 7.6 x 8.3 cm. [facility] Khadar Beth, DO - 07/04/2024 EXAMINATION: US ABDOMEN LIMITED STUDY HISTORY: ORDERING SYSTEM PROVIDED HISTORY: Ascites, and liver cirrhosis., TECHNOLOGIST PROVIDED HISTORY: Illness/Other Reason for exam: ascites and liver cirrhosis Cancer History: u Surgery, RadiationHistory: u Encounter Type: Initial Additional signs and symptoms: none ORDERING SYSTEM PROVIDED DIAGNOSIS CODES: L03.119 Cellulitis of lower extremity, unspecified laterality R06.02 SOB (shortness of breath) I50.9 Congestive heart failure, unspecified HF chronicity, unspecified heart failure type (HCC) I50.31 Acute heart failure with preserved ejection fraction (HFpEF) ([facility]) I50.32 Chronic diastolic congestive heart failure ([facility]) D61.818 Pancytopenia ([facility]) L03.115 Cellulitis of right lower extremity L08.9 Foot infection E27.40 Adrenal insufficiency ([facility]) T84.53XD Infection associated with internal right knee prosthesis, subsequent encounter L97.922 Skin ulcer of left lower leg with fat layer exposed ([facility]) L97.519 Plantar ulcer of right foot, unspecified ulcer stage ([facility]) G89.4 Chronic pain syndrome I87.2 Venous stasis dermatitis of both lower extremities D69.6 Thrombocytopenia ([facility]) T14.8XXA Hematoma K70.31 Alcoholic cirrhosis of liver with ascites ([facility]) R90.[address] M89.8X5 Pain of left femur M25.552 Acute pain of left hip I95.9 Hypotension, unspecified hypotension type F14.10 Nondependent cocaine abuse ([facility]) D72.829 Leukocytosis, unspecified type F19.10 Polysubstance abuse ([facility]) J41.1 Mucopurulent chronic bronchitis ([facility]) E11.9 Type 2 diabetes mellitus without complication, without long-term current use of insulin ([facility]) E66.01 Morbid obesity with BMI of 40.0-44.9, adult ([facility]) Z68.41 Morbid obesity with BMI of 40.0-44.9, adult ([facility]) I48.91 Atrial fibrillation with rapid ventricular response ([facility]) F11.20 Uncomplicated opioid dependence ([facility]) J96.11 Chronic respiratory failure with hypoxia and hypercapnia ([facility]) J96.12 Chronic respiratory failure with hypoxia and hypercapnia ([facility]) I10 Essential hypertension M17.11 Primary osteoarthritis of right knee M21.41 Acquired pes planovalgus of right foot M17.11 Osteoarthritis of right knee, unspecified osteoarthritis type COMPARISON: None. TECHNIQUE: Ultrasound of the right upper quadrant abdomen. FINDINGS: Liver: Normal size, right hepatic lobe measures 16.9 cm. Diffuse increased hepatic echotexture coarsening with nodular contour, compatible with cirrhosis. Gallbladder: No cholelithiasis, pericholecystic fluid or gallbladder wall thickening. Common bile duct: Normal in diameter, measuring 0.4 cm. Right kidney: Normal in size and echogenicity measuring 11.5 x 6.2 x 5.3 cm. No hydronephrosis or renal calculus. Miscellaneous: Pancreas is obscured by bowel gas. Visualized inferior vena cava is patent. Miscellaneous: Incidental splenomegaly, measures 22.4 x 7.6 x 8.3 cm. IMPRESSION: Cirrhosis with splenomegaly. No ascites. No cholelithiasis or biliary ductal dilatation. No right hydronephrosis or nephrolithiasis. /[facility] Workstation ID: [id number] [facility] Radiology Study observation (narrative) [facility] US Abdomen limitedOrdered By : Khadar Beth on 07-04-2024 [facility] Work Phone: CBC panel Auto (Bld)on 07-03 Erythrocyte distribution width (RBC) [Entitic vol] 15.3 % High 11.6 - 14.8 % [facility] Hematocrit (Bld) [Volume fraction] 35 % Low 41.0 - 53.0 % [facility] Hemoglobin (Bld) [Mass/Vol] 10.7 g/dL Low 13.5 - 17.5 g/dL [facility] Interpretation and review of laboratory results Abnormal [facility] MCH (RBC) [Entitic mass] 22 pg Low 26.0 - 34.0 pg [facility] MCHC (RBC) [Mass/Vol] 30.6 g/dL Low 31.0 - 37.0 g/dL [facility] MCV (RBC) [Entitic vol] 72 fL Low 80.0 - 100.0 fL [facility] Nucleated RBC (Bld) [#/Vol] 0 10*3/uL [facility] Nucleated RBC/100 WBC (Bld) [Ratio] 0 % [facility] Platelet mean volume (Bld) [Entitic vol] 10 fL 9.4 - 12.4 fL [facility] Platelets (Bld) [#/Vol] 135 10*3/uL Low [facility] RBC (Bld) [#/Vol] 4.86 10*6/uL [facility] WBC (Bld) [#/Vol] 4.66 10*3/uL [facility] Comprehensive metabolic 2000 panelOrdered By: Krystian Nicole on 07-03-2024 Albumin [Mass/Vol] 3.6 g/dL 3.2 - 5.2 g/dL [facility] ALP [Catalytic activity/Vol] 75 U/L 40 - 150 U/L [facility] ALT [Catalytic activity/Vol] 9 U/L [facility] Anion gap [Moles/Vol] 15 mmol/L 10 - 20 mmol/L [facility] AST [Catalytic activity/Vol] 22 U/L [facility] Bilirubin [Mass/Vol] 0.5 mg/dL 0.0 - 1 .3 mg/dL [facility] Calcium [Mass/Vol] 8.4 mg/dL 8.4 - 10. 2 mg/dL [facility] Chloride [Moles/Vol] 96 mmol/L Low 98 - 10 8 mmol/L [facility] Creatinine [Mass/Vol] 0.68 mg/dL 0.50 - 1.30 mg/dL [facility] GFR/1.73 sq M.predicted CKD-EPI (S/P/Bld) [Vol rate/Area] 108 - PINF [facility] Comment on above: Estimated GFR was ca lculated using the 2020 CKD-EPI creatinine equation. Glucose [Mass/Vol] 103 mg/dL High 65 - 99 mg/dL [facility] HCO3 [Moles/Vol] 30 mmol/L 21 - 32 mmol/L [facility] Interpretation and review of laboratory results Abnormal [facility] Potassium [Moles/Vol] 3.6 mmol/L 3.5 - 5.1 mmol/L [facility] Protein [Mass/Vol] 7.9 g/dL 6.0 - 8.0 g/dL [facility] Sodium [Moles/Vol] 137 mmol/L 135 - 145 mmol/L [facility] Urea nitrogen [Mass/Vol] 16 mg/dL 8 - 25 mg/dL [facility] Urea nitrogen/Creatinine [Mass ratio] 23.5 mg/mg High 10.0 - 20.0 [facility] has implemented the eGFR calculation approach that does not have a coefficient for race that conforms to the NKF-ASN Task Force Recommendations. [facility] ECG 12 Lead (Now)on 07-03-20 24 Atrial Rate 75 BPM [facility] P [place] 78 degrees [facility] P-R Interval 158 ms [facility] Q-T Interval 394 ms [facility] QRS Duration 90 ms [facility] QTC Calculation (Bezet) 439 ms [facility] R [place] 60 degrees [facility] T [place] 57 degrees [facility] Ventricular Rate 75 BPM [facility] th Normal sinus rhythm Normal ECG ECG Cart Interpretation see physician note for interpretation. Confirmed by Yanet Paige ([id number]) on 07/03/2024 7:03:07 PM MUSE [facility] Glucose (Bld) [Mass/Vol]on 09-02-2023 Glucose [Mass/Vol] 154 mg/dL High 65 - 99 mg/dL [facility] Interpretation and review of laboratory results Abnormal [facility] CBC Auto Differentialon 06-22 Basophils (Bld) [#/Vol] 0.01 10*3/uL [facility] Basophils/100 WBC (Bld) 0.2 % [facility] Eosinophils (Bld) [#/Vol] 0.02 10*3/uL [facility] Eosinophils/100 WBC (Bld) 0.5 % [facility] Erythrocyte distribution width (RBC) [Entitic vol] 15.4 % High 11.6 - 14.8 % [facility] Hematocrit (Bld) [Volume fraction] 36.1 % Low 41.0 - 53.0 % [facility] Hemoglobin (Bld) [Mass/Vol] 11.1 g/dL Low 13.5 - 17.5 g/dL [facility] Immature granulocytes (Bld) [#/Vol] 0.01 10*3/uL [facility] Immature granulocytes/100 WBC (Bld) 0.2 % [facility] Comment on above: The IG parameter is the percentage of metamyelocytes, myelocytes and promyelocytes. An immature granulocyte count (IG) of 1% or more suggests the possibility of infection, an IG count of 3% is very likely related to an infection. Interpretation and review of laboratory results Abnormal [facility] Lymphocytes (Bld) [#/Vol] 0.54 10*3/uL Low [facility] Lymphocytes/100 WBC (Bld) 12.2 % [facility] MCH (RBC) [Entitic mass] 22.4 pg Low 26.0 - 34.0 pg [facility] MCHC (RBC) [Mass/Vol] 30.7 g/dL Low 31.0 - 37.0 g/dL [facility] MCV (RBC) [Entitic vol] 72.9 fL Low 80.0 - 100.0 fL [facility] Monocytes (Bld) [#/Vol] 0.26 10*3/uL Low [facility] Monocytes/100 WBC (Bld) 5.9 % [facility] Neutrophils (Bld) [#/Vol] 3.59 10*3/uL [facility] Neutrophils/100 WBC (Bld) 81 % [facility] Nucleated RBC (Bld) [#/Vol] 0 10*3/uL [facility] Nucleated RBC/100 WBC (Bld) [Ratio] 0 % [facility] Platelet mean volume (Bld) [Entitic vol] 10 fL 9.4 - 12.4 fL [facility] Platelets (Bld) [#/Vol] 131 10*3/uL Low [facility] RBC (Bld) [#/Vol] 4.95 10*6/uL [facility] ealth WBC (Bld) [#/Vol] 4.43 10*3/uL Low [facility] CRP, Inflammationon 07-02-20 CRP [Mass/Vol] 36.2 mg/L High 0.0 - 10.0 mg/L [facility] CT Pulmonary arteries for pu lmonary emboluson 07-02-2024 EXAMINATION: CT PULMONARY ARTERIES HISTORY: ORDERING SYSTEM PROVIDED HISTORY: sob.positive dimer, TECHNOLOGIST PROVIDED HISTORY: Illness/Other Reason for exam: sob Encounter Type: Initial Additional signs and symptoms: positive d dimer ORDERING SYSTEM PROVIDED DIAGNOSIS CODES: L03.119 Cellulitis of lower extremity, unspecified laterality R06.02 SOB (shortness of breath) COMPARISON: 10/04/2023 TECHNIQUE: CT angiography of the pulmonary arteries following the administration of intravenous contrast. Coronal and sagittal MIP images were performed. Dose reduction techniques were achieved by using automated exposure control and/or adjustment of mA and/or kV according to patient size and/or use of iterative reconstruction technique. CONTRAST: IOPAMIDOL 370 MG IODINE/ML (76 %) INTRAVENOUS SOLUTION - 75 mL, FINDINGS: Atherosclerotic changes are noted. Coronary arterial calcifications are noted. Gynecomastia is seen. No pericardial effusion is seen. There is a small hiatal hernia. There are paraesophageal soft tissue changes likely related to varices again noted, limitedly evaluated. There is a nodular liver and mild ascites is noted. Splenomegaly is seen. The concentration bolus in the pulmonary arteries is suboptimal; however central pulmonary embolism is not appreciated. No dissection or aneurysmal dilatation of the aorta is seen. Bronchial thickening is noted. No focal consolidation or pleural effusion is seen. There are small nodule seen in the right upper lung anteriorly with some patchy opacities or atelectasis seen medially in the upper lobe. Small nodules are also seen in right lower lung base. Nodular opacities are also seen in the left lung base. There is a nonspecific gas seen in the posterior right shoulder near the teres minor muscle which is nonspecific. Peripheral enhancement is not seen in this area. No axillary adenopathy is seen by size criteria. Degenerative changes are seen. Old rib fractures are noted. [facility] Rangel Garcia MD - 07/02/2024 EXAMINATION: CT PULMONARY ARTERIES HISTORY: ORDERING SYSTEM PROVIDED HISTORY: sob.positive dimer, TECHNOLOGIST PROVIDED HISTORY: Illness/Other Reason for exam: sob Encounter Type: Initial Additional signs and symptoms: positive d dimer ORDERING SYSTEM PROVIDED DIAGNOSIS CODES: L03.119 Cellulitis of lower extremity, unspecified laterality R06.02 SOB (shortness of breath) COMPARISON: 10/04/2023 TECHNIQUE: CT angiography of the pulmonary arteries following the administration of intravenous contrast. Coronal and sagittal MIP images were performed. Dose reduction techniques were achieved by using automated exposure control and/or adjustment of mA and/or kV according to patient size and/or use of iterative reconstruction technique. CONTRAST: IOPAMIDOL 370 MG IODINE/ML (76 %) INTRAVENOUS SOLUTION - 75 mL, FINDINGS: Atherosclerotic changes are noted. Coronary arterial calcifications are noted. Gynecomastia is seen. No pericardial effusion is seen. There is a small hiatal hernia. There are paraesophageal soft tissue changes likely related to varices again noted, limitedly evaluated. There is a nodular liver and mild ascites is noted. Splenomegaly is seen. The concentration bolus in the pulmonary arteries is suboptimal; however central pulmonary embolism is not appreciated. No dissection or aneurysmal dilatation of the aorta is seen. Bronchial thickening is noted. No focal consolidation or pleural effusion is seen. There are small nodule seen in the right upper lung anteriorly with some patchy opacities or atelectasis seen medially in the upper lobe. Small nodules are also seen in right lower lung base. Nodular opacities are also seen in the left lung base. There is a nonspecific gas seen in the posterior right shoulder near the teres minor muscle which is nonspecific. Peripheral enhancement is not seen in this area. No axillary adenopathy is seen by size criteria. Degenerative changes are seen. Old rib fractures are noted. IMPRESSION: 1. Suboptimal evaluation of the pulmonary arteries with only the central pulmonary arteries evaluated, if concerned for more peripheral pulmonary emboli, recommend re-imaging with earlier contrast bolus 2. Atherosclerotic changes, degenerative changes, old rib fractures, cirrhosis, ascites, varices, and splenomegaly noted 3. Numerous pulmonary nodules are seen which were not previously identified likely representing inflammatory or atypical infectious processes. Depending on patient's history, treatment and/or follow-up in 3 months could be considered to establish resolution. 4. Soft tissue gas is seen in the posterior right shoulder muscle, this is nonspecific. This may be related to injection although infection is not excluded. Workstation ID: [id number] [facility] Radiology Study observation (narrative) [facility] CT Pulmonary arteries for pu lmonary embolusOrdered By: Rangel Garcia on 07-02-2024 [facility] Work Phone: Comprehensive metabolic 2000 panelOrdered By: Caty Sanchez on 07-02-2024 Albumin [Mass/Vol] 3.7 g/dL 3.2 - 5.2 g/dL [facility] ALP [Catalytic activity/Vol] 70 U/L 40 - 150 U/L [facility] ALT [Catalytic activity/Vol] 13 U/L [facility] Anion gap [Moles/Vol] 15 mmol/L 10 - 20 mmol/L [facility] AST [Catalytic activity/Vol] 25 U/L [facility] Bilirubin [Mass/Vol] 0.8 mg/dL 0.0 - 1 .3 mg/dL [facility] Calcium [Mass/Vol] 8.8 mg/dL 8.4 - 10. 2 mg/dL [facility] Chloride [Moles/Vol] 99 mmol/L 98 - 10 8 mmol/L [facility] Creatinine [Mass/Vol] 0.61 mg/dL 0.50 - 1.30 mg/dL [facility] GFR/1.73 sq M.predicted CKD-EPI (S/P/Bld) [Vol rate/Area] 112 - PINF [facility] Comment on above: Estimated GFR was ca lculated using the 2020 CKD-EPI creatinine equation. Glucose [Mass/Vol] 132 mg/dL High 65 - 99 mg/dL [facility] HCO3 [Moles/Vol] 27 mmol/L 21 - 32 mmol/L [facility] Interpretation and review of laboratory results Abnormal [facility] Potassium [Moles/Vol] 3.8 mmol/L 3.5 - 5.1 mmol/L [facility] Protein [Mass/Vol] 8.1 g/dL High 6.0 - 8.0 g/dL [facility] Sodium [Moles/Vol] 137 mmol/L 135 - 145 mmol/L [facility] Urea nitrogen [Mass/Vol] 12 mg/dL 8 - 25 mg/dL [facility] Urea nitrogen/Creatinine [Mass ratio] 19.7 mg/mg 10.0 - 20.0 [facility] has implemented the eGFR calculation approach that does not have a coefficient for race that conforms to the NKF-ASN Task Force Recommendations. [facility] D-Dimer, QuantitativeOrdered By: Sara Barba on 07-02-2024 Fibrin D-dimer FEU (PPP) [Mass/Vol] 14.75 [facility] Interpretation and review of laboratory results Abnormal [facility] A D-dimer concentrat ion of <0.5 micrograms per milliliter FEU is considered a low probability for pulmonary embolus (PE) and deep venous thrombosis (DVT). Results of this test should always be interpreted in conjunction with the patient's medical history,clinical presentation, and other findings. Clinical diagnosis should not be based on the results of the D-dimer alone. [facility] EKGon 07-02-2024 [facility] ESR Westergren method (Bld) [Velocity]on 07-02-2024 ESR (Bld) [Velocity] 101 mm/h [facility] Interpretation and review of laboratory results Abnormal [facility] Gold Topon 07-02-2024 Extra Tube Hold for add-ons. [facility] Comment on above: Auto resulted. [facility] Combs Topon 07-02-2024 Extra Tube Hold for add-ons. [facility] Comment on above: Auto resulted. [facility] NT Pro BNPon 07-02-2024 Natriuretic peptide.B prohormone N-Terminal [Mass/Vol] 552 pg/mL High 0 - 300 pg/mL [facility] Natriuretic peptide.B prohor randi N-Terminal [Mass/Vol]on 07-02-2024 Pride Study Cut-offs Rule In: < /= 50 Years >450 pg/mL 51 Years - 75 Years >900 pg/mL 76 Years - 99 Years >1800 pg/mL Rule Out: All patients <300 pg/mL [facility] No Panel Informationon 07-02 Interpretation and review of laboratory results Abnormal [facility] Troponin x 2 (Now and Repeat in 3 hours)Ordered By: Sb Neal on 07-02-2024 Troponin T ng/L NINF - 22 ng/L [facility] Troponin T Interpretation Normal [facility] Ultrasound Duplex Venous Leg s BILATERALon 07-02-2024 Patient Info Name: CARMEN GILMAN Age: 58 years : 1965 Gender: Male Exam Date: 07/02/2024 3:32 PM Patient Status: Emergency Excellence Coach: Margy Bradley RVT Referring Physician: INDERJIT Jaimes; Indications R22.43 - Localized swelling, mass and lump, lower limb, bilateral Procedure Description [id number] Duplex examination using B-mode, color and spectral Doppler of extremity veins including responses to compression and other maneuvers; complete bilateral study. Conclusions * No evidence of deep or superficial vein thrombosis in the lower extremities bilaterally. * Right. * Unable to visualize the right peroneal veins due to edema. However, color flow noted. * Left. * Unable to visualize the left peroneal veins due to edema. Prior Study Date: 10/03/2023 Risk Factors Patient has a history of hypertension, diabetes, obesity and tobacco use-previous. . Report Signatures Finalized by Christian Wood MD on 07/02/2024 04:51 PM External Iliac: - External Iliac: Normal External Iliac: Normal External Iliac: - External Iliac: Normal External Iliac: Normal Common Femoral: Complete Common Femoral: Normal Common Femoral: Normal Common Femoral: Complete Common Femoral: Normal Common Femoral: Normal Femoral: Complete Femoral: Complete Femoral: Normal Femoral: Normal Femoral: Normal Femoral: Normal Peroneal: - Peroneal: - Peroneal: - Peroneal: - Peroneal: - Peroneal: - Profunda Femoral: Complete Profunda Femoral: - Profunda Femoral: Complete Profunda Femoral: - Profunda Femoral: - Popliteal: Complete Popliteal: Complete Popliteal: Normal Popliteal: Normal Popliteal: Normal Popliteal: Normal Posterior Tibial: Complete Posterior Tibial: Complete Posterior Tibial: - Posterior Tibial: - Posterior Tibial: - Posterior Tibial: - Gastrocnemius: - Gastrocnemius: - Gastrocnemius: - Gastrocnemius: - Gastrocnemius: - Gastrocnemius: - Soleal: - Soleal: - Soleal: - Soleal: - Soleal: - Soleal: - Great Saphenous: Complete Great Saphenous: Complete Great Saphenous: Normal Great Saphenous: Normal Great Saphenous: Normal Great Saphenous: Normal Small Saphenous: - Small Saphenous: - Small Saphenous: - Small Saphenous: - Small Saphenous: - Small Saphenous: - - FUJI SYNAPSE Christian Juarez MD - 07/02/2024 Patient Info Name: CARMEN GILMAN Age: 58 years : 1965 Gender: Male Exam Date: 07/02/2024 3:32 PM Patient Status: Emergency Excellence Coach: Margy Bradley RVT Referring Physician: [id number], INDERJIT; Indications R22.43 - Localized swelling, mass and lump, lower limb, bilateral Procedure Description [id number] Duplex examination using B-mode, color and spectral Doppler of extremity veins including responses to compression and other maneuvers; complete bilateral study. Conclusions * No evidence of deep or superficial vein thrombosis in the lower extremities bilaterally. * Right. * Unable to visualize the right peroneal veins due to edema. However, color flow noted. * Left. * Unable to visualize the left peroneal veins due to edema. Prior Study Date: 10/03/2023 Risk Factors Patient has a history of hypertension, diabetes, obesity and tobacco use-previous. . Report Signatures Finalized by Christian Wood MD on 07/02/2024 04:51 PM External Iliac: - External Iliac: Normal External Iliac: Normal External Iliac: - External Iliac: Normal External Iliac: Normal Common Femoral: Complete Common Femoral: Normal Common Femoral: Normal Common Femoral: Complete Common Femoral: Normal Common Femoral: Normal Femoral: Complete Femoral: Complete Femoral: Normal Femoral: Normal Femoral: Normal Femoral: Normal Peroneal: - Peroneal: - Peroneal: - Peroneal: - Peroneal: - Peroneal: - Profunda Femoral: Complete Profunda Femoral: - Profunda Femoral: Complete Profunda Femoral: - Profunda Femoral: - Popliteal: Complete Popliteal: Complete Popliteal: Normal Popliteal: Normal Popliteal: Normal Popliteal: Normal Posterior Tibial: Complete Posterior Tibial: Complete Posterior Tibial: - Posterior Tibial: - Posterior Tibial: - Posterior Tibial: - Gastrocnemius: - Gastrocnemius: - Gastrocnemius: - Gastrocnemius: - Gastrocnemius: - Gastrocnemius: - Soleal: - Soleal: - Soleal: - Soleal: - Soleal: - Soleal: - Great Saphenous: Complete Great Saphenous: Complete Great Saphenous: Normal Great Saphenous: Normal Great Saphenous: Normal Great Saphenous: Normal Small Saphenous: - Small Saphenous: - Small Saphenous: - Small Saphenous: - Small Saphenous: - Small Saphenous: - - [facility] Urinalysison 07-02-2024 Bacteria Auto Ql (U) None Seen None Se en /hpf [facility] Bilirubin Ql (U) Negative Negative [facility] th Clarity Refractometry automated (U) Clear Clear [facility] Color (U) Colorless Colorless, Yellow [facility] Glucose Auto test strip (U) [Mass/Vol] Negative Negative mg/dL [facility] Hemoglobin Auto test strip Ql (U) Small Abnormal Negative [facility] Interpretation and review of laboratory results Abnormal [facility] Ketones (U) [Mass/Vol] Negative Negative mg/dL [facility] Leukocyte esterase Auto test strip Ql (U) Negative Negative [facility] Mucus Auto (Urine sed) [#/Area] Rare None Seen, Rare /lpf [facility] Nitrite Auto test strip Ql (U) Negative Negative [facility] pH (U) 6.5 [pH] 5.0 - 7.0 [facility] Protein (U) [Mass/Vol] Negative Negative mg/dL [facility] RBC Auto (Urine sed) [#/Area] 2 [facility] Specific gravity (U) [Rel density] 1.006 1.005 - 1.025 [facility] Urobilinogen (U) [Mass/Vol] mg/dL NINF - 2.0 mg/dL [facility] Microscopic examinat ion is performed on all urinalysis samples and only positive findings are reported. The test for blood on the chemical analytic portion of urinalysis may also be positive due to hemoglobinuria and myoglobinuria and if red blood cells are present they are quantified by microscopic examination. [facility] XR Chest PA and Abdomen APon 07-02-2024 No active disease. Workstation ID: [id number] link bird EXAMINATION: XR CHEST PA/AP 07/02/2024 3:21 pm HISTORY: ORDERING SYSTEM PROVIDED HISTORY: Chest Pain, TECHNOLOGIST PROVIDED HISTORY: Illness/Other Reason for exam: chest pain Cancer History: unknown Surgery, RadiationHistory: Unknown Encounter Type: Initial Additional signs and symptoms: na ORDERING SYSTEM PROVIDED DIAGNOSIS CODES: L03.119 Cellulitis of lower extremity, unspecified laterality R06.02 SOB (shortness of breath) COMPARISON: October 01, 2023. FINDINGS: Heart and mediastinal contours are normal. The lungs and pleural spaces are clear. GE Libia Guerrero MD - 07/02/2024 EXAMINATION: XR CHEST PA/AP 07/02/2024 3:21 pm HISTORY: ORDERING SYSTEM PROVIDED HISTORY: Chest Pain, TECHNOLOGIST PROVIDED HISTORY: Illness/Other Reason for exam: chest pain Cancer History: unknown Surgery, RadiationHistory: Unknown Encounter Type: Initial Additional signs and symptoms: na ORDERING SYSTEM PROVIDED DIAGNOSIS CODES: L03.119 Cellulitis of lower extremity, unspecified laterality R06.02 SOB (shortness of breath) COMPARISON: October 01, 2023. FINDINGS: Heart and mediastinal contours are normal. The lungs and pleural spaces are clear. IMPRESSION: No active disease. Workstation ID: [id number] [facility] Radiology Study observation (narrative) [facility] XR Chest PA and Abdomen APOr dered By: Libia Sidhu on 07-02-2024 [facility] Work Phone: XR Knee - right 2 Viewson FINDINGS/ 1. Right total knee arthroplasty is in satisfactory position. Periprosthetic lucency is noted surrounding the femoral and tibial prostheses, concerning for hardware loosening or infection. 2. Moderate right knee joint effusion is suspected. 3. No fracture, malalignment, or other acute bony abnormality is seen. 4. Chronic linear calcification remains unchanged in the region of the distal quadriceps tendon. 5. Soft tissue swelling is noted, which may represent cellulitis in the correct clinical setting. No abnormal gas bubbles are seen. Workstation ID: [id number] link bird EXAMINATION: XR KNEE RIGHT 2 VIEWS (STANDARD) 07/02/2024 7:14 pm HISTORY: ORDERING SYSTEM PROVIDED HISTORY: per radiology, TECHNOLOGIST PROVIDED HISTORY: Illness/Other Reason for exam: concern for hardware loosening of the right knee arthroplasty Cancer History: unknown Surgery, RadiationHistory: Unknown Encounter Type: Initial Additional signs and symptoms: . ORDERING SYSTEM PROVIDED DIAGNOSIS CODES: L03.119 Cellulitis of lower extremity, unspecified laterality R06.02 SOB (shortness of breath) COMPARISON: CT of 10/07/2023 and right tibia/fibula radiographs of 07/02/2024. SMIC RIS Eloy Arevalo MD - 07/02/2024 EXAMINATION: XR KNEE RIGHT 2 VIEWS (STANDARD) 07/02/2024 7:14 pm HISTORY: ORDERING SYSTEM PROVIDED HISTORY: per radiology, TECHNOLOGIST PROVIDED HISTORY: Illness/Other Reason for exam: concern for hardware loosening of the right knee arthroplasty Cancer History: unknown Surgery, RadiationHistory: Unknown Encounter Type: Initial Additional signs and symptoms: . ORDERING SYSTEM PROVIDED DIAGNOSIS CODES: L03.119 Cellulitis of lower extremity, unspecified laterality R06.02 SOB (shortness of breath) COMPARISON: CT of 10/07/2023 and right tibia/fibula radiographs of 07/02/2024. IMPRESSION: FINDINGS/ 1. Right total knee arthroplasty is in satisfactory position. Periprosthetic lucency is noted surrounding the femoral and tibial prostheses, concerning for hardware loosening or infection. 2. Moderate right knee joint effusion is suspected. 3. No fracture, malalignment, or other acute bony abnormality is seen. 4. Chronic linear calcification remains unchanged in the region of the distal quadriceps tendon. 5. Soft tissue swelling is noted, which may represent cellulitis in the correct clinical setting. No abnormal gas bubbles are seen. Workstation ID: [id number] [facility] Radiology Study observation (narrative) [facility] XR Knee - right 2 ViewsOrder ed By: Eloy Arevalo on 07-02-2024 [facility] Work Phone: XR Tibia and Fibula - left 2 Viewson 07-02-2024 Extensive subcutaneous edema and soft tissue swelling without radiographic evidence of osteomyelitis. If there is high clinical concern, recommend MRI which is more sensitive. Workstation ID: [id number] link bird EXAMINATION: XR TIBIA FIBULA LEFT 2 VIEWS 07/02/2024 4:19 pm HISTORY: ORDERING SYSTEM PROVIDED HISTORY: cellulitis, TECHNOLOGIST PROVIDED HISTORY: Illness/Other Reason for exam: cellulitis. Cancer History: unknown Surgery, RadiationHistory: Unknown Encounter Type: Initial Additional signs and symptoms: . ORDERING SYSTEM PROVIDED DIAGNOSIS CODES: L03.119 Cellulitis of lower extremity, unspecified laterality R06.02 SOB (shortness of breath) COMPARISON: Left knee radiographs dated 04/24/2022 FINDINGS: Five views. No acute fractures. Healed fracture of the fibular neck. Severe osteoarthrosis of the left knee. The bones are diffusely demineralized. Advanced hindfoot arthropathy. Extensive subcutaneous edema and soft tissue swelling. link bird Edwin Juna, - 07/02/2024 EXAMINATION: XR TIBIA FIBULA LEFT 2 VIEWS 07/02/2024 4:19 pm HISTORY: ORDERING SYSTEM PROVIDED HISTORY: cellulitis, TECHNOLOGIST PROVIDED HISTORY: Illness/Other Reason for exam: cellulitis. Cancer History: unknown Surgery, RadiationHistory: Unknown Encounter Type: Initial Additional signs and symptoms: . ORDERING SYSTEM PROVIDED DIAGNOSIS CODES: L03.119 Cellulitis of lower extremity, unspecified laterality R06.02 SOB (shortness of breath) COMPARISON: Left knee radiographs dated 04/24/2022 FINDINGS: Five views. No acute fractures. Healed fracture of the fibular neck. Severe osteoarthrosis of the left knee. The bones are diffusely demineralized. Advanced hindfoot arthropathy. Extensive subcutaneous edema and soft tissue swelling. IMPRESSION: Extensive subcutaneous edema and soft tissue swelling without radiographic evidence of osteomyelitis. If there is high clinical concern, recommend MRI which is more sensitive. Workstation ID: [id number] [facility] Radiology Study observation (narrative) [facility] XR Tibia and Fibula - right 2 Viewson 07-02-2024 Diffuse soft tissue swelling and edema without radiographic evidence of osteomyelitis. If there is high clinical concern, recommend MRI. Right total knee arthroplasty with findings suspicious for component loosening. Consider obtaining dedicated right knee radiographs as clinically warranted. Workstation ID: [id number] link bird EXAMINATION: XR TIBIA FIBULA RIGHT 2 VIEWS 07/02/2024 4:19 pm HISTORY: ORDERING SYSTEM PROVIDED HISTORY: cellulitis., TECHNOLOGIST PROVIDED HISTORY: Illness/Other Reason for exam: cellulitis. Cancer History: unknown Surgery, RadiationHistory: Unknown Encounter Type: Initial Additional signs and symptoms: . ORDERING SYSTEM PROVIDED DIAGNOSIS CODES: L03.119 Cellulitis of lower extremity, unspecified laterality R06.02 SOB (shortness of breath) COMPARISON: Right foot radiographs dated 01/17/2024 FINDINGS: Four views. No fractures. Right total knee arthroplasty. There is lucency surrounding the tibial component, partially imaged. Advanced hindfoot arthropathy. The bones are demineralized. Diffuse soft tissue edema and swelling. GE Edwin Lenz, DO - 07/02/2024 EXAMINATION: XR TIBIA FIBULA RIGHT 2 VIEWS 07/02/2024 4:19 pm HISTORY: ORDERING SYSTEM PROVIDED HISTORY: cellulitis., TECHNOLOGIST PROVIDED HISTORY: Illness/Other Reason for exam: cellulitis. Cancer History: unknown Surgery, RadiationHistory: Unknown Encounter Type: Initial Additional signs and symptoms: . ORDERING SYSTEM PROVIDED DIAGNOSIS CODES: L03.119 Cellulitis of lower extremity, unspecified laterality R06.02 SOB (shortness of breath) COMPARISON: Right foot radiographs dated 01/17/2024 FINDINGS: Four views. No fractures. Right total knee arthroplasty. There is lucency surrounding the tibial component, partially imaged. Advanced hindfoot arthropathy. The bones are demineralized. Diffuse soft tissue edema and swelling. IMPRESSION: Diffuse soft tissue swelling and edema without radiographic evidence of osteomyelitis. If there is high clinical concern, recommend MRI. Right total knee arthroplasty with findings suspicious for component loosening. Consider obtaining dedicated right knee radiographs as clinically warranted. Workstation ID: [id number] [facility] Radiology Study observation (narrative) [facility] XR Tibia and Fibula - right 2 ViewsOrdered By: Edwin Juan on 07-02-2024 [facility] Work Phone: No Panel Informationon 05-11 XRAY CHEST 1 VIEW Invalid Interpretation Code [facility] [employer] [facility] Work Phone: Comment on above: XRAY CHEST 1 VIEWFIN DINGS: The heart and mediastinum are normal. The trachea is midline. No acute cardiopulmonary disease is noted. The osseous structures are normal for age.CONCLUSION: Normal chest exam.ELECTRONICALLY SIGNED BY FELIPE RANDHAWA D.O. 05/11/2024 3:38:17 PM EDT. No Panel Informationon 05-02 KNEE 1 OR 2 VIEWS Invalid Interpretation Code [employer] [facility] Work Phone: Comment on above: KNEE 1 OR 2 VIEWS, R IGHTSee NoteFINDINGS: The patient is status post right knee arthroplasty showing good anatomic alignment. Mild deformity seen along the medial femoral condyle. The proximal tibia and fibula are intact and the soft tissues are unremarkable.See NoteCONCLUSION: Deformity along of the medial femoral condyle demonstrates chronic features, possibly postsurgical. Acute traumatic injury would be less likely. Correlate with physical exam. No overt hardware abnormality.ELECTRONICALLY SIGNED BY CAMRON TAVARES M.D. 05/02/2024 2:27:33 PM EDT. BMP FASTINGon 04-27-2024 Anion gap [Moles/Vol] 3 mmol/L Normal [facility] Comment on above: Performed By: #### F X, BMPF #### Testing performed at [place] [id number] Calcium [Mass/Vol] 8.0 mg/dL Low 8.4-10.2 [facility] Comment on above: Performed By: #### F X, BMPF #### [place] [address] Chloride [Moles/Vol] 102 mmol/L Normal 98-107 [facility] Comment on above: Result Comment: Krystian boyd note: Triglyceride levels of 600mg/dL or higher may positively bias chloride results by approximately 2.1 mmol Performed By: #### F X, BMPF #### [place] [address] CO2 [Moles/Vol] 32 mmol/L High 22-30 [facility] Comment on above: Performed By: #### F X, BMPF #### Testing performed at [place] [id number] Creatinine [Mass/Vol] 0.70 mg/dL Normal 0.70-1.20 [facility] Comment on above: Performed By: #### F X, BMPF #### Testing performed at [address] [address] EST. GFR, 150 ml/min/1.73sq.m [facility] Comment on above: Performed By: #### F X, BMPF #### Testing performed at [address] [address] EST. GFR,Non 124 ml/min/1.73sq.m [facility] Comment on above: Performed By: #### F X, BMPF #### Testing performed at [address] [address] GFR Information Average GFR for 50-5 9 years old = 93. Normal [facility] Comment on above: Result Comment: Rn Postpartum kaveh Kidney disease, GFR = <60. Kidney failure, GFR = <15. The GFR estimate is not adjusted for extreme body surface area or acute process, nor has it been validated for women or ethnic groups other than and . Performed By: #### F X, BMPF #### Testing performed at [place] [id number] Glucose [Mass/Vol] 120 mg/dL High 70-100 [facility] Comment on above: Result Comment: NORMAL <100 mg/dL PREDIABETES 101-126 mg/dL DIABETES 126 mg/dL or higher Performed By: #### F X, BMPF #### Testing performed at [place] [id number] Potassium [Moles/Vol] 3.7 mmol/L Normal 3.5-5.1 [facility] Comment on above: Performed By: #### F X, BMPF #### Testing performed at [place] [id number] Sodium [Moles/Vol] 137 mmol/L Normal 137-145 [facility] Comment on above: Performed By: #### F X, BMPF #### Testing performed at [place] [id number] Urea nitrogen [Mass/Vol] 24 mg/dL High 7-20 [facility] Comment on above: Performed By: #### F X, BMPF #### Testing performed at [address] [address] FAX REQUESTon 04-27-2024 FAX TO [phone] Normal [facility] Comment on above: Performed By: #### F X, BMPF #### Testing performed at [place] [id number] CBCon 04-09-2024 Basophils/100 WBC (Bld) 1 % Normal 0.0-2.0 [facility] Comment on above: Performed By: #### U LIV, FX, ACBC, LIP2, FE2, CMPF, UMAC ####Testing performed at [address] [address] DTYPE AUTO DIFF Normal [facility] Comment on above: Performed By: #### U LIV, FX, ACBC, LIP2, FE2, CMPF, UMAC ####Testing performed at [address] [address] Eosinophils/100 WBC (Bld) 2 % Normal 0.0-11.0 [facility] Comment on above: Performed By: #### U LIV, FX, ACBC, LIP2, FE2, CMPF, UMAC ####Testing performed at [address] [address] Lymphocytes/100 WBC (Bld) 20 % Normal 20.0-55.0 [facility] Comment on above: Performed By: #### U LIV, FX, ACBC, LIP2, FE2, CMPF, UMAC ####[place] [address] Monocytes/100 WBC (Bld) 11 % High 0.0-10.0 [facility] Comment on above: Performed By: #### U LIV, FX, ACBC, LIP2, FE2, CMPF, UMAC ####Testing performed at [address] [address] Neutrophils/100 WBC (Bld) 66 % Normal 37.0-75.0 [facility] Comment on above: Performed By: #### U LIV, FX, ACBC, LIP2, FE2, CMPF, UMAC ####Testing performed at [address] [address] PLATELET COMMENT CLUMPED Normal [facility] Comment on above: Result Comment: DECR EASED Performed By: #### U LIV, FX, ACBC, LIP2, FE2, CMPF, UMAC ####Testing performed at [address] [address] RBC morphology finding Nom (Bld) 2+ Normal [facility] Comment on above: Result Comment: ANIS OCYTE 2+ ELIPTOCYTES 2+ POIKILOCYTE 1+ MICROCYTOSIS Performed By: #### U LIV, FX, ACBC, LIP2, FE2, CMPF, UMAC ####Testing performed at [address] [address] Erythrocyte distribution width (RBC) [Ratio] 17.4 % High 11.5-14.5 [facility] Comment on above: Performed By: #### U LIV, FX, ACBC, LIP2, FE2, CMPF, UMAC ####Testing performed at [place] [id number] Hematocrit (Bld) [Volume fraction] 31.5 % Low 42.0-52.0 [facility] Comment on above: Performed By: #### U LIV, FX, ACBC, LIP2, FE2, CMPF, UMAC ####Testing performed at [place] [id number] Hemoglobin (Bld) [Mass/Vol] 9.9 g/dL Low 14.0-18.0 [facility] Comment on above: Performed By: #### U LIV, FX, ACBC, LIP2, FE2, CMPF, UMAC ####Testing performed at [place] [id number] MCH (RBC) [Entitic mass] 22.5 pg Low 26.0-35.0 [facility] Comment on above: Performed By: #### U LIV, FX, ACBC, LIP2, FE2, CMPF, UMAC ####Testing performed at [place] [id number] MCHC (RBC) [Mass/Vol] 31.4 g/dL Normal 27.0-37.0 [facility] Comment on above: Performed By: #### U LIV, FX, ACBC, LIP2, FE2, CMPF, UMAC ####Testing performed at [address] [address] MCV (RBC) [Entitic vol] 71.6 fL Low 80.0-100.0 [facility] Comment on above: Performed By: #### U LIV, FX, ACBC, LIP2, FE2, CMPF, UMAC ####Testing performed at [place] [id number] Platelet mean volume (Bld) [Entitic vol] 8.8 fL Normal 7.4-11.0 [facility] Comment on above: Performed By: #### U LIV, FX, ACBC, LIP2, FE2, CMPF, UMAC ####Testing performed at [address] [address] Platelets (Bld) [#/Vol] 77 10*3/uL Low 130-400 [facility] Comment on above: Performed By: #### U LIV, FX, ACBC, LIP2, FE2, CMPF, UMAC ####Testing performed at [address] [address] RBC (Bld) [#/Vol] 4.40 10*6/uL Normal 4.0-6.1 [facility] Comment on above: Performed By: #### U LIV, FX, ACBC, LIP2, FE2, CMPF, UMAC ####Testing performed at [address] [address] WBC (Bld) [#/Vol] 3.7 10*3/uL Normal 3.6-11.0 [facility] Comment on above: Performed By: #### U LIV, FX, ACBC, LIP2, FE2, CMPF, UMAC ####Testing performed at [address] [address] CMP FASTINGon 04-09-2024 A:G RATIO 0.9 RATIO Normal [facility] Comment on above: Performed By: #### U LIV, FX, ACBC, LIP2, FE2, CMPF, UMAC #### Testing performed at [address] [address] ALBUMIN 3.3 G/dl Low 3.5-5.0 [facility] Comment on above: Performed By: #### U LIV, FX, ACBC, LIP2, FE2, CMPF, UMAC #### Testing performed at [address] [address] ALP [Catalytic activity/Vol] 101 U/L Normal 38-126 [facility] Comment on above: Performed By: #### U LIV, FX, ACBC, LIP2, FE2, CMPF, UMAC #### Testing performed at [address] [address] ALT [Catalytic activity/Vol] 16 U/L Normal <50 [facility] Comment on above: Performed By: #### U LIV, FX, ACBC, LIP2, FE2, CMPF, UMAC #### Testing performed at [address] [address] AST [Catalytic activity/Vol] 27 U/L Normal 17-59 [facility] Comment on above: Performed By: #### U LIV, FX, ACBC, LIP2, FE2, CMPF, UMAC #### Testing performed at [address] [address] Bilirubin [Mass/Vol] 0.9 mg/dL Normal 0.2-1.3 [facility] Comment on above: Performed By: #### U LIV, FX, ACBC, LIP2, FE2, CMPF, UMAC #### Testing performed at [address] [address] Calcium [Mass/Vol] 8.1 mg/dL Low 8.4-10.2 [facility] Comment on above: Performed By: #### U LIV, FX, ACBC, LIP2, FE2, CMPF, UMAC #### Testing performed at [address] [address] Chloride [Moles/Vol] 103 mmol/L Normal 98-107 [facility] Comment on above: Result Comment: Plea note: Triglyceride levels of 600mg/dL or higher may positively bias chloride results by approximately 2.1 mmol Performed By: #### U LIV, FX, ACBC, LIP2, FE2, CMPF, UMAC #### Testing performed at [address] [address] CO2 [Moles/Vol] 30 mmol/L Normal 22-30 [facility] Comment on above: Performed By: #### U LIV, FX, ACBC, LIP2, FE2, CMPF, UMAC #### Testing performed at [address] [address] Creatinine [Mass/Vol] 1.00 mg/dL Normal 0.70-1.20 [facility] Comment on above: Performed By: #### U LIV, FX, ACBC, LIP2, FE2, CMPF, UMAC #### Testing performed at [address] [address] EST. GFR, 99 ml/min/1.73sq.m [facility] Comment on above: Performed By: #### U LIV, FX, ACBC, LIP2, FE2, CMPF, UMAC #### Testing performed at [address] [address] EST. GFR,Non 82 ml/min/1.73sq.m [facility] Comment on above: Performed By: #### U LIV, FX, ACBC, LIP2, FE2, CMPF, UMAC #### Testing performed at [place] [id number] GFR Information Average GFR for 50-5 9 years old = 93. [facility] Comment on above: Result Comment: Rn Postpartum kaveh Kidney disease, GFR = <60. Kidney failure, GFR = <15. The GFR estimate is not adjusted for extreme body surface area or acute process, nor has it been validated for women or ethnic groups other than and . Performed By: #### U LIV, FX, ACBC, LIP2, FE2, CMPF, UMAC #### Testing performed at [address] [address] Glucose [Mass/Vol] 126 mg/dL High 70-100 [facility] Comment on above: Result Comment: NORMAL <100 mg/dL PREDIABETES 101-126 mg/dL DIABETES 126 mg/dL or higher Performed By: #### U LIV, FX, ACBC, LIP2, FE2, CMPF, UMAC #### Testing performed at [address] [address] Potassium [Moles/Vol] 4.2 mmol/L Normal 3.5-5.1 [facility] Comment on above: Performed By: #### U LIV, FX, ACBC, LIP2, FE2, CMPF, UMAC #### Testing performed at [address] [address] Protein [Mass/Vol] 7.0 g/dL Normal 6.3-8.2 [facility] Comment on above: Performed By: #### U LIV, FX, ACBC, LIP2, FE2, CMPF, UMAC #### Testing performed at [address] [address] Sodium [Moles/Vol] 136 mmol/L Low 137-145 [facility] Comment on above: Performed By: #### U LIV, FX, ACBC, LIP2, FE2, CMPF, UMAC #### Testing performed at [address] [address] Urea nitrogen [Mass/Vol] 19 mg/dL Normal 7-20 [facility] Comment on above: Performed By: #### U LIV, FX, ACBC, LIP2, FE2, CMPF, UMAC #### Testing performed at [address] [address] FAX REQUESTon 04-09-2024 FAX TO [phone] Normal [facility] Comment on above: Performed By: #### U LIV, FX, ACBC, LIP2, FE2, CMPF, UMAC #### Testing performed at [address] [address] FERRITINon 04-09-2024 Ferritin [Mass/Vol] 67 ng/mL Normal 17.9-464 [facility] Comment on above: Performed By: #### F RTN ####Testing performed at [address] [place] [address] IRONon 04-09-2024 Iron [Mass/Vol] 66 ug/dL Normal 49-181 [facility] Comment on above: Performed By: #### U LIV, FX, ACBC, LIP2, FE2, CMPF, UMAC #### Testing performed at [address] [address] LIPID PROFILEon 04-09-2024 Cholesterol [Mass/Vol] 96 mg/dL Normal [facility] Comment on above: Performed By: #### U LIV, FX, ACBC, LIP2, FE2, CMPF, UMAC #### Testing performed at [address] [address] Cholesterol in HDL [Mass/Vol] 32 mg/dL Normal 26-63 [facility] Comment on above: Performed By: #### U LIV, FX, ACBC, LIP2, FE2, CMPF, UMAC #### Testing performed at [address] [address] Cholesterol in LDL [Mass/Vol] 52 mg/dL Normal <100 [facility] Comment on above: Performed By: #### U LIV, FX, ACBC, LIP2, FE2, CMPF, UMAC #### Testing performed at [address] [address] Cholesterol in VLDL [Mass/Vol] 12 mg/dL Normal 5-25 [facility] Comment on above: Performed By: #### U LIV, FX, ACBC, LIP2, FE2, CMPF, UMAC #### Testing performed at [address] [address] Cholesterol.total/Ch olesterol in HDL [Mass ratio] 3.00 {ratio} Normal [facility] Comment on above: Result Comment: RISK TOTAL/HDL RATIO MEN WOMEN 1/2 AVERAGE 3.43 3.27 AVERAGE 4.97 4.44 2X AVERAGE 9.55 7.05 3X AVERAGE 23.99 11.04 Performed By: #### U LIV, FX, ACBC, LIP2, FE2, CMPF, UMAC #### Testing performed at [address] [address] Triglyceride [Mass/Vol] 60 mg/dL Normal 0-150 [facility] Comment on above: Performed By: #### U LIV, FX, ACBC, LIP2, FE2, CMPF, UMAC #### Testing performed [address] [address] [address] TSHon 04-09-2024 TSH 1.550 uIU/ML Normal 0.465-4.680 [facility] Comment on above: Performed By: #### T SH2 #### Testing performed at [address] [address] URINE CULTUREon 04-09-2024 Bacteria identified Cx Nom (U) SPECIMEN DESCRIPTION URINE CLEAN CATCH UA DIPSTICK LEUKOCYTE NEGATIVE * Result Note: NITRITE NEGATIVE * CULTURE NO GROWTH 2 DAYS * Result Note: Testing performed at [place] [address] * REPORT STATUS 04/11/2024 * Result Note: FINAL * Normal [facility] Comment on above: Performed By: #### A URNC ####Testing performed at [address] [place] [address]Osasfwi performed at [address] [address] URINE MACROSCOPICon 04-09-20 24 Bilirubin Ql (U) Negative Normal NEGATIVE [facility] Comment on above: Performed By: #### U LIV, FX, ACBC, LIP2, FE2, CMPF, UMAC #### Testing performed at [address] [address] Clarity (U) CLEAR Normal CLEAR [facility] Comment on above: Performed By: #### U LIV, FX, ACBC, LIP2, FE2, CMPF, UMAC #### Testing performed at [address] [address] Color (U) YELLOW Normal YELLOW [facility] Comment on above: Performed By: #### U LIV, FX, ACBC, LIP2, FE2, CMPF, UMAC #### Testing performed at [address] [address] Glucose Ql (U) Negative Normal NEGATIVE [facility] Comment on above: Performed By: #### U LIV, FX, ACBC, LIP2, FE2, CMPF, UMAC #### Testing performed at [address] [address] pH (U) 7.0 [pH] Normal 5.0-7.0 [facility] Comment on above: Performed By: #### U LIV, FX, ACBC, LIP2, FE2, CMPF, UMAC #### Testing performed at [address] [address] URINE HEMOGLOBIN SMALL Abnormal NEGATIVE [facility] Comment on above: Performed By: #### U LIV, FX, ACBC, LIP2, FE2, CMPF, UMAC #### Testing performed at [address] [address] URINE KETONE Negative Normal NEGATIVE [facility] Comment on above: Performed By: #### U LIV, FX, ACBC, LIP2, FE2, CMPF, UMAC #### Testing performed at [address] [address] URINE LEUKOTEST Negative Normal NEGATIVE [facility] Comment on above: Performed By: #### U LIV, FX, ACBC, LIP2, FE2, CMPF, UMAC #### Testing performed at [address] [address] URINE NITRATES Negative Normal NEGATIVE [facility] Comment on above: Performed By: #### U LIV, FX, ACBC, LIP2, FE2, CMPF, UMAC #### Testing performed at [address] [address] URINE SPEC GRAVITY 1.020 Normal 1.010-1.025 [facility] Comment on above: Performed By: #### U LIV, FX, ACBC, LIP2, FE2, CMPF, UMAC #### Testing performed at [address] [address] URINE TOTAL PROTEIN Negative Normal NEGATIVE [facility] Comment on above: Performed By: #### U LIV, FX, ACBC, LIP2, FE2, CMPF, UMAC #### Testing performed at [address] [address] Urobilinogen Qn (U) 4.0 {Eliseo'U}/dL High 0.2-1.0 [facility] Comment on above: Performed By: #### U LIV, FX, ACBC, LIP2, FE2, CMPF, UMAC #### Testing performed at [address] [address] URINE MICROSCOPICon 04-09-20 24 BACTERIA TRACE Abnormal NEGATIVE [facility] Comment on above: Performed By: #### U LIV, FX, ACBC, LIP2, FE2, CMPF, UMAC ####Testing performed at [address] [address] CASTS NONE Normal NONE [facility] Comment on above: Performed By: #### U LIV, FX, ACBC, LIP2, FE2, CMPF, UMAC ####Testing performed at [address] [address] CRYSTAL NONE Normal NONE [facility] Comment on above: Performed By: #### U LIV, FX, ACBC, LIP2, FE2, CMPF, UMAC ####Testing performed at [address] [address] Epithelial cells LM Ql (Urine sed) 1 TO 5 Normal [facility] Comment on above: Performed By: #### U LIV, FX, ACBC, LIP2, FE2, CMPF, UMAC ####Testing performed at [address] [address] Mucus Ql (Urine sed) Negative Normal NEGATIVE [facility] Comment on above: Performed By: #### U LIV, FX, ACBC, LIP2, FE2, CMPF, UMAC ####Testing performed at [address] [address] URINE COMMENT PHYSICIAN REQUESTED CULTURE Normal [facility] Comment on above: Performed By: #### U LIV, FX, ACBC, LIP2, FE2, CMPF, UMAC ####Testing performed at [address] [address] URINE RBC'S 1 TO 5 Normal NEGATIVE [facility] Comment on above: Performed By: #### U LIV, FX, ACBC, LIP2, FE2, CMPF, UMAC ####Testing performed at [address] [address] URINE WBC'S 1 TO 5 Normal NEGATIVE [facility] Comment on above: Performed By: #### U LIV, FX, ACBC, LIP2, FE2, CMPF, UMAC ####Testing performed at [address] [address] No Panel Informationon 03-15 VENOUS DOPPLER EXTREM/TERRY Invalid Interpretation Code [facility] Work Phone: Comment on above: VENOUS DOPPLER EXTRE M/TERRY, LEFTFINDINGS: Left Lower Extremity Venous Duplex Ultrasound: History:Lower extremity edema.See NoteFINDINGS: Farris scale, color Doppler flow imaging, and spectral Doppler imaging is performed. Venous duplex examination of the left lower extremity is performed. Imaging is negative for demonstrable thrombus in the common femoral, proximal profunda femoris, proximal great saphenous, femoral, and popliteal veins down to the level of the trifurcation. Spectral analysis demonstrates flow with normal augmentation. Compressibility is seen under real-time imaging. Visualized portions of the posterior tibial and peroneal veins are negative for demonstrable thrombus. No Morgan's cyst was identified.CONCLUSION: No ultrasound evidence of deep venous thrombosis in the above visualized vessels. If the patient remains symptomatic, repeat imaging in 3 to 5 days is recommended.ELECTRONICALLY SIGNED BY CAROLINA DOVE M.D. 03/15/2024 11:50:07 AM EDT. B TYPE NATRIURETIC PEPTIDEon 09-19-2023 Natriuretic peptide B (Bld) [Mass/Vol] 143 pg/mL High 0-100 [facility] Comment on above: Performed By: #### A CBC, DDIMER, BNP, CMPF, PT ####Testing performed at [address] [address] CBCon 09-19-2023 Basophils/100 WBC (Bld) 0 % Normal 0.0-2.0 [facility] Comment on above: Performed By: #### T SH2 #### Testing performed at [address] [address] DTYPE AUTO DIFF Normal [facility] Comment on above: Performed By: #### T SH2 #### Testing performed at [address] [address] Eosinophils/100 WBC (Bld) 1 % Normal 0.0-11.0 [facility] Comment on above: Performed By: #### T SH2 #### Testing performed at [address] [address] Lymphocytes/100 WBC (Bld) 14 % Low 20.0-55.0 [facility] Comment on above: Performed By: #### T SH2 #### Testing performed at [address] [address] Monocytes/100 WBC (Bld) 7 % Normal 0.0-10.0 [facility] Comment on above: Performed By: #### T SH2 #### Testing performed at [address] [address] Neutrophils/100 WBC (Bld) 78 % High 37.0-75.0 [facility] Comment on above: Performed By: #### T SH2 #### Testing performed at [address] [address] PLATELET COMMENT DECREASED Normal [facility] Comment on above: Performed By: #### T SH2 #### Testing performed at [address] [address] RBC morphology finding Nom (Bld) 1+ Normal [facility] Comment on above: Result Comment: MICR OCYTOSIS 1+ ANISOCYTE Performed By: #### T SH2 #### Testing performed at [address] [address] Erythrocyte distribution width (RBC) [Ratio] 16.9 % High 11.5-14.5 [facility] Comment on above: Performed By: #### T SH2 #### Testing performed at [address] [address] Hematocrit (Bld) [Volume fraction] 34.3 % Low 42.0-52.0 [facility] Comment on above: Performed By: #### T SH2 #### Testing performed at [address] [address] Hemoglobin (Bld) [Mass/Vol] 10.9 g/dL Low 14.0-18.0 [facility] Comment on above: Performed By: #### T SH2 #### Testing performed at [address] [address] MCH (RBC) [Entitic mass] 22.0 pg Low 26.0-35.0 [facility] Comment on above: Performed By: #### T SH2 #### Testing performed at [address] [address] MCHC (RBC) [Mass/Vol] 31.9 g/dL Normal 27.0-37.0 [facility] Comment on above: Performed By: #### T SH2 #### Testing performed at [address] [address] MCV (RBC) [Entitic vol] 69.2 fL Low 80.0-100.0 [facility] Comment on above: Performed By: #### T SH2 #### Testing performed at [address] [address] Platelet mean volume (Bld) [Entitic vol] 8.9 fL Normal 7.4-11.0 [facility] Comment on above: Performed By: #### T SH2 #### Testing performed at [address] [place] [address] Platelets (Bld) [#/Vol] 103 10*3/uL Low 130-400 [facility] Comment on above: Performed By: #### T SH2 #### Testing performed at [address] [place] [address] RBC (Bld) [#/Vol] 4.96 10*6/uL Normal 4.0-6.1 [facility] Comment on above: Performed By: #### T SH2 #### Testing performed at [address] [address] WBC (Bld) [#/Vol] 3.3 10*3/uL Low 3.6-11.0 [facility] Comment on above: Performed By: #### T SH2 #### Testing performed at [address] [place] [address] CMP FASTINGon 09-19-2023 A:G RATIO 0.9 RATIO Normal [facility] Comment on above: Performed By: #### A CBC, DDIMER, BNP, CMPF, PT ####Testing performed at [address] [address] ALBUMIN 3.4 G/dl Low 3.5-5.0 [facility] Comment on above: Performed By: #### A CBC, DDIMER, BNP, CMPF, PT ####Testing performed at [address] [place] [address] ALP [Catalytic activity/Vol] 84 U/L Normal 38-126 [facility] Comment on above: Performed By: #### A CBC, DDIMER, BNP, CMPF, PT ####Testing performed at [address] [place] [address] ALT [Catalytic activity/Vol] 24 U/L Normal <50 [facility] Comment on above: Performed By: #### A CBC, DDIMER, BNP, CMPF, PT ####Testing performed at [address] [place] [address] AST [Catalytic activity/Vol] 32 U/L Normal 17-59 [facility] Comment on above: Performed By: #### A CBC, DDIMER, BNP, CMPF, PT ####Testing performed at [address] [address] Bilirubin [Mass/Vol] 0.9 mg/dL Normal 0.2-1.3 [facility] Comment on above: Performed By: #### A CBC, DDIMER, BNP, CMPF, PT ####Testing performed at [address] [address] Calcium [Mass/Vol] 9.0 mg/dL Normal 8.4-10.2 [facility] Comment on above: Performed By: #### A CBC, DDIMER, BNP, CMPF, PT ####Testing performed at [address] [address] Chloride [Moles/Vol] 100 mmol/L Normal 98-107 [facility] Comment on above: Result Comment: Krystian boyd note: Triglyceride levels of 600mg/dL or higher may positively bias chloride results by approximately 2.1 mmol Performed By: #### A CBC, DDIMER, BNP, CMPF, PT ####Testing performed at [address] [address] CO2 [Moles/Vol] 30 mmol/L Normal 22-30 [facility] Comment on above: Performed By: #### A CBC, DDIMER, BNP, CMPF, PT ####Testing performed at [address] [address] Creatinine [Mass/Vol] 0.60 mg/dL Low 0.70-1.20 [facility] Comment on above: Performed By: #### A CBC, DDIMER, BNP, CMPF, PT ####Testing performed at [address] [address] EST. GFR, 179 ml/min/1.73sq.m [facility] Comment on above: Performed By: #### A CBC, DDIMER, BNP, CMPF, PT ####Testing performed at [address] [address] EST. GFR,Non 148 ml/min/1.73sq.m [facility] Comment on above: Performed By: #### A CBC, DDIMER, BNP, CMPF, PT ####[place] [address] GFR Information Average GFR for 50-5 9 years old = 93. Normal [facility] Comment on above: Result Comment: Rn Postpartum kaveh Kidney disease, GFR = <60. Kidney failure, GFR = <15. The GFR estimate is not adjusted for extreme body surface area or acute process, nor has it been validated for women or ethnic groups other than and . Performed By: #### A CBC, DDIMER, BNP, CMPF, PT ####[place] [address] Glucose [Mass/Vol] 116 mg/dL High 70-100 [facility] Comment on above: Result Comment: NORMAL <100 mg/dL PREDIABETES 101-126 mg/dL DIABETES 126 mg/dL or higher Performed By: #### A CBC, DDIMER, BNP, CMPF, PT ####Testing performed at [place] [id number] Potassium [Moles/Vol] 4.3 mmol/L Normal 3.5-5.1 [facility] Comment on above: Performed By: #### A CBC, DDIMER, BNP, CMPF, PT ####[place] [address] Protein [Mass/Vol] 7.1 g/dL Normal 6.3-8.2 [facility] Comment on above: Performed By: #### A CBC, DDIMER, BNP, CMPF, PT ####Testing performed at [place] [id number] Sodium [Moles/Vol] 134 mmol/L Low 137-145 [facility] Comment on above: Performed By: #### A CBC, DDIMER, BNP, CMPF, PT ####Testing performed at [place] [id number] Urea nitrogen [Mass/Vol] 19 mg/dL Normal 7-20 [facility] Comment on above: Performed By: #### A CBC, DDIMER, BNP, CMPF, PT ####Testing performed at [address] [address] [address] PE STUDYon 09-19-2023 CT PE STUDY EXAMINATION: CT PE S TUDY HISTORY: Positive d-dimer, shortness of breath COMPARISON: CTA chest 11/14/2021 TECHNIQUE: Multi-planar CT images were created with IV contrast. Axial, Coronal, and Sagittal images. Dose reduction techniques were achieved by using automated exposure control and/or adjustment of mA and/or kV according to patient size and/or use of iterative reconstruction technique. 3-D reconstruction was performed on a separate workstation. FINDINGS: VASCULATURE: Single short segment of nonocclusive thrombus within segmental artery of right lower lobe anterior basilar segment. LUNGS: No visible pulmonary disease. PLEURA: No mass, effusion, or pneumothorax. ROBERT: No mass or adenopathy. MEDIASTINUM: No mass or adenopathy. CARDIAC: No enlargement, pericardial effusion, or pericardial thickening. AORTA: No aneurysm or dissection. CHEST WALL: No mass or axillary adenopathy. BONES: Old healed and incompletely healed rib fractures. LIMITED ABDOMEN: Slightly nodular liver margins, splenomegaly, small moderate free fluid within right upper quadrant. Well distended gallbladder with questionable wall thickening versus artifact from adjacent free fluid. Limited images of the upper abdomen. OTHER: Negative. IMPRESSION: 1. Right lower lobe short segment of nonocclusive thrombus within the segmental artery; not appreciably changed compared to 2021 consistent with residual, chronic, nonocclusive thrombus. No acute findings. 2. No pulmonary infiltrates or pleural effusion. 3. Nodular liver margins, splenomegaly, and small amount of ascites; findings suggestive of cirrhosis. 4. Gallbladder wall thickening versus artifact from adjacent free fluid. Consider ultrasound evaluation. Normal [facility] D DIMERon 09-19-2023 D DIMER 12.91 ??g/ml Critically high <0.50 [facility] Comment on above: Result Comment: If r esult is greater than the cutoff value of 0.50 ??g/ml then the potential for PE or DVT exists. Other conditions exist which may cause a falsely elevated level. Please correlate clinically, including radiological findings and other clinical parameters. Result called to and read back by: FAIZAN 09/19/2023 @ 05:43 by NIKI Performed By: #### A CBC, DDIMER, BNP, CMPF, PT ####Testing performed at [address] [place] [address] LACTATE,BLOODon 09-19-2023 Lactate [Moles/Vol] 2.0 mmol/L Normal 0.7-2.0 [facility] Comment on above: Performed By: #### L ACTAC #### Testing performed at [address] [address] PROTIMEon 09-19-2023 INR Coag (PPP) [Relative time] 1.06 {INR} Normal 0.85-1.10 [facility] Comment on above: Result Comment: 2.0-3.0 THERAPEUTIC RANGE 2.5-3.5 MECHANICAL VALVE RANGE Performed By: #### A CBC, DDIMER, BNP, CMPF, PT ####Testing performed at [address] [address] PT Coag (PPP) [Time] 13.9 s Normal 11.8-14.4 [facility] Comment on above: Performed By: #### A CBC, DDIMER, BNP, CMPF, PT ####Testing performed at [place] [id number] TROPONIN I, HIGH SENSITIVITY on 09-19-2023 TROPONIN I, HIGH SENSITIVITY 16 pg/mL Normal 0-20 [facility] Comment on above: Result Comment: Indeterminant: >12 to 100 pg/mL female >20 to 100 pg/mL male Indicative of myocardial injury. Serial sampling is recommended, a change of greater than or equal to 20 pg/mL is indicative of acute coronary syndrome. Performed By: #### T ROHS ####Testing performed at [address] [address] XR CHEST PA 1 VIEWon 024 XR CHEST PA 1 VIEW EXAM: XR CHEST PA 1 VIEW HISTORY: sob COMPARISON: None. TECHNIQUE: AP upright chest. FINDINGS: Both lungs are expanded and clear with well-defined pleural margins on frontal view and no pneumothorax. Normal heart size and vasculature. External cardiac monitoring leads. Patient has had resection of the distal left clavicle. No acute osseous abnormality or destructive bone changes. IMPRESSION: 1. No acute cardiopulmonary findings. 2. Resection of distal left clavicle. Normal [facility] No Panel Informationon 08-19 Cecilia Gonzales, YURIDIA 08/19/2023 3:08 PM Debridement Wound 05/18/23 Skin Tear Pre-tibial Left Consent obtained? verbal Consent given by: patient Risks discussed? procedural risks discussed Immediately prior to the procedure a time out was called Performed by: physician Debridement type: surgical Level of debridement: subcutaneous tissue Post-debridement measurements Length (cm): 0.5 Width (cm): 0.5 Depth (cm): 0.2 Percent debrided: 100% Surface Area (cm^2): 0.25 Area debrided (cm^2): 0.25 Volume (cm^3): 0.05 Tissue and other material debrided: subcutaneous tissue Devitalized tissue debrided: biofilm, fibrin and slough Instrument(s) utilized: curette Bleeding: small Hemostasis obtained with: pressure Response to treatment: procedure was tolerated well [facility] Glucose (Bld) [Mass/Vol]on 10-12-2022 Glucose [Mass/Vol] 119 mg/dL High 65 - 99 mg/dL [facility] Interpretation and review of laboratory results Abnormal [facility] Glucose [Mass/Vol] 181 mg/dL High 65 - 99 mg/dL [facility] Interpretation and review of laboratory results Abnormal [facility] Glucose [Mass/Vol] 105 mg/dL High 65 - 99 mg/dL [facility] Interpretation and review of laboratory results Abnormal [facility] CBC Auto Differentialon 07-23 Erythrocyte distribution width (RBC) [Entitic vol] 16.1 % High 11.6 - 14.8 % [facility] Hematocrit (Bld) [Volume fraction] 32.0 % Low 41.0 - 53.0 % [facility] Hemoglobin (Bld) [Mass/Vol] 10.1 g/dL Low 13.5 - 17.5 g/dL [facility] Interpretation and review of laboratory results Abnormal [facility] MCH (RBC) [Entitic mass] 22.2 pg Low 26.0 - 34.0 pg [facility] MCHC (RBC) [Mass/Vol] 31.6 g/dL 31.0 - 37.0 g/dL [facility] MCV (RBC) [Entitic vol] 70.3 fL Low 80.0 - 100.0 fL [facility] Nucleated RBC (Bld) [#/Vol] 0.00 10*3/uL [facility] Nucleated RBC/100 WBC (Bld) [Ratio] 0.0 % [facility] Platelets (Bld) [#/Vol] 101 10*3/uL Low [facility] RBC (Bld) [#/Vol] 4.55 10*6/uL [facility] ealth WBC (Bld) [#/Vol] 2.46 10*3/uL Low [facility] eah [facility] CBC and Diff Morphologyon Ovalocytes LM Ql (Bld) Many [facility] Platelets Large Auto Ql (Bld) Few [facility] Polychromasia LM Ql (Bld) Few [facility] RBC morphology finding Nom (Bld) See Comment [facility] Target cells LM Ql (Bld) Few [facility] Comprehensive metabolic 2000 panelOrdered By: Gaby Brambila on 08-10-2023 Albumin [Mass/Vol] 2.7 g/dL Low 3.2 - 5.2 g/dL [facility] ALP [Catalytic activity/Vol] 60 U/L 40 - 150 U/L [facility] ALT [Catalytic activity/Vol] 17 U/L 14 - 65 U/L [facility] Anion gap [Moles/Vol] 8 mmol/L Low 10 - 20 mmol/L [facility] AST [Catalytic activity/Vol] 15 U/L [facility] Bilirubin [Mass/Vol] 0.8 mg/dL 0.0 - 1 .3 mg/dL [facility] Calcium [Mass/Vol] 8.2 mg/dL Low 8.4 - 10. 2 mg/dL [facility] Chloride [Moles/Vol] 107 mmol/L 98 - 10 8 mmol/L [facility] Creatinine [Mass/Vol] 0.61 mg/dL 0.50 - 1.30 mg/dL [facility] GFR/1.73 sq M.predicted CKD-EPI (S/P/Bld) [Vol rate/Area] 112 - PINF [facility] Glucose [Mass/Vol] 96 mg/dL 65 - 99 mg/dL [facility] HCO3 [Moles/Vol] 30 mmol/L 21 - 32 mmol/L [facility] Interpretation and review of laboratory results Abnormal [facility] Potassium [Moles/Vol] 4.1 mmol/L 3.5 - 5.1 mmol/L [facility] Protein [Mass/Vol] 6.6 g/dL 6.0 - 8.0 g/dL [facility] Sodium [Moles/Vol] 141 mmol/L 135 - 145 mmol/L [facility] Urea nitrogen [Mass/Vol] 20 mg/dL 8 - 25 mg/dL [facility] Urea nitrogen/Creatinine [Mass ratio] 32.8 mg/mg High 10.0 - 20.0 [facility] Glucose (Bld) [Mass/Vol]on 10-11-2022 Glucose [Mass/Vol] 110 mg/dL High 65 - 99 mg/dL [facility] Interpretation and review of laboratory results Abnormal [facility] Magnesium Levelon 08-10-2023 Magnesium [Mass/Vol] 2.2 mg/dL 1.6 - 2 .4 mg/dL [facility] Magnesium [Mass/Vol]on 08-10 Interpretation and review of laboratory results Normal [facility] Manual Differential panel (B ld)on 08-10-2023 Basophils (Bld) [#/Vol] 0.00 10*3/uL [facility] Basophils/100 WBC (Bld) 0.0 % [facility] Eosinophils (Bld) [#/Vol] 0.06 10*3/uL [facility] Eosinophils/100 WBC (Bld) 2.6 % [facility] Interpretation and review of laboratory results Abnormal [facility] Lymphocytes (Bld) [#/Vol] 0.43 10*3/uL Low [facility] Lymphocytes/100 WBC (Bld) 17.4 % [facility] Monocytes (Bld) [#/Vol] 0.17 10*3/uL Low [facility] Monocytes/100 WBC (Bld) 7.0 % [facility] Neutrophils (Bld) [#/Vol] 1.80 10*3/uL [facility] Neutrophils/100 WBC (Bld) 73.0 % [facility] Occult Blood Stool Immunoass ay (Alcira, Farbia, Mary Only)Ordered By: Traci Leslie on 08-10-2023 Hemoglobin.gastroint estinal Ql (Stl) Negative Negative for Occult Blood [facility] Interpretation and review of laboratory results Normal [facility] Phosphate [Mass/Vol]on 08-10 Interpretation and review of laboratory results Normal [facility] Phosphoruson 08-10-2023 Phosphate [Mass/Vol] 4.0 mg/dL 2.7 - 4 .5 mg/dL [facility] Glucose (Bld) [Mass/Vol]on 10-09-2022 Glucose [Mass/Vol] 113 mg/dL High 65 - 99 mg/dL [facility] Interpretation and review of laboratory results Abnormal [facility] Glucose [Mass/Vol] 101 mg/dL High 65 - 99 mg/dL [facility] Interpretation and review of laboratory results Abnormal [facility] Glucose [Mass/Vol] 116 mg/dL High 65 - 99 mg/dL [facility] Interpretation and review of laboratory results Abnormal [facility] Wound Aerobic CultureOrdered By: Bentley Leo on 08-08-2023 Bacteria identified Aer cx Nom (Wound) No Growth After 48 Hours [facility] Microscopic observation Gram stain Nom (Wound) Few WBC [facility] Microscopic observation Gram stain Nom (Wound) Moderate RBC [facility] Microscopic observation Gram stain Nom (Wound) No Organisms Seen [facility] Glucose (Bld) [Mass/Vol]on 1 10-08-2022 Glucose [Mass/Vol] 160 mg/dL High 65 - 99 mg/dL [facility] Interpretation and review of laboratory results Abnormal [facility] Glucose [Mass/Vol] 142 mg/dL High 65 - 99 mg/dL [facility] Interpretation and review of laboratory results Abnormal [facility] US Abdomenon 08-07-2023 GE RIS GE RIS [facility] US AbdomenOrdered By: Mari Tolliver on 08-07-2023 [facility] Work Phone: CBC Auto Differentialon 07-22 Basophils (Bld) [#/Vol] 0.00 10*3/uL [facility] Basophils/100 WBC (Bld) 0.0 % [facility] Eosinophils (Bld) [#/Vol] 0.00 10*3/uL [facility] Eosinophils/100 WBC (Bld) 0.0 % [facility] Erythrocyte distribution width (RBC) [Entitic vol] 15.7 % High 11.6 - 14.8 % [facility] Hematocrit (Bld) [Volume fraction] 30.9 % Low 41.0 - 53.0 % [facility] Hemoglobin (Bld) [Mass/Vol] 9.6 g/dL Low 13.5 - 17.5 g/dL [facility] Immature granulocytes (Bld) [#/Vol] 0.01 10*3/uL [facility] Immature granulocytes/100 WBC (Bld) 0.40 % [facility] Interpretation and review of laboratory results Abnormal [facility] Lymphocytes (Bld) [#/Vol] 0.35 10*3/uL Low [facility] Lymphocytes/100 WBC (Bld) 12.9 % [facility] MCH (RBC) [Entitic mass] 21.9 pg Low 26.0 - 34.0 pg [facility] MCHC (RBC) [Mass/Vol] 31.1 g/dL 31.0 - 37.0 g/dL [facility] MCV (RBC) [Entitic vol] 70.5 fL Low 80.0 - 100.0 fL [facility] Monocytes (Bld) [#/Vol] 0.16 10*3/uL Low [facility] Monocytes/100 WBC (Bld) 5.9 % [facility] Neutrophils (Bld) [#/Vol] 2.20 10*3/uL [facility] Neutrophils/100 WBC (Bld) 80.8 % [facility] Nucleated RBC (Bld) [#/Vol] 0.00 10*3/uL [facility] Nucleated RBC/100 WBC (Bld) [Ratio] 0.0 % [facility] Platelets (Bld) [#/Vol] 84 10*3/uL Low [facility] RBC (Bld) [#/Vol] 4.38 10*6/uL Low [facility] ealth WBC (Bld) [#/Vol] 2.72 10*3/uL Low [facility] eah [facility] CBC and Diff Morphologyon Dacrocytes LM Ql (Bld) Few [facility] Interpretation and review of laboratory results Abnormal [facility] Ovalocytes LM Ql (Bld) Moderate [facility] Polychromasia LM Ql (Bld) Few [facility] RBC morphology finding Nom (Bld) See Comment [facility] Schistocytes Auto Ql (Bld) Few Abnormal See Comment [facility] Target cells LM Ql (Bld) Many [facility] Comprehensive metabolic 2000 panelOrdered By: Violeta Garcia on 08-06-2023 Albumin [Mass/Vol] 2.7 g/dL Low 3.2 - 5.2 g/dL [facility] ALP [Catalytic activity/Vol] 64 U/L 40 - 150 U/L [facility] ALT [Catalytic activity/Vol] 14 U/L 14 - 65 U/L [facility] Anion gap [Moles/Vol] 8 mmol/L Low 10 - 20 mmol/L [facility] AST [Catalytic activity/Vol] 17 U/L [facility] Bilirubin [Mass/Vol] 0.4 mg/dL 0.0 - 1 .3 mg/dL [facility] Calcium [Mass/Vol] 8.0 mg/dL Low 8.4 - 10. 2 mg/dL [facility] Chloride [Moles/Vol] 107 mmol/L 98 - 10 8 mmol/L [facility] Creatinine [Mass/Vol] 0.60 mg/dL 0.50 - 1.30 mg/dL [facility] GFR/1.73 sq M.predicted CKD-EPI (S/P/Bld) [Vol rate/Area] 113 - PINF [facility] Glucose [Mass/Vol] 127 mg/dL High 65 - 99 mg/dL [facility] HCO3 [Moles/Vol] 29 mmol/L 21 - 32 mmol/L [facility] Interpretation and review of laboratory results Abnormal [facility] Potassium [Moles/Vol] 4.6 mmol/L 3.5 - 5.1 mmol/L [facility] Protein [Mass/Vol] 6.8 g/dL 6.0 - 8.0 g/dL [facility] Sodium [Moles/Vol] 139 mmol/L 135 - 145 mmol/L [facility] Urea nitrogen [Mass/Vol] 17 mg/dL 8 - 25 mg/dL [facility] Urea nitrogen/Creatinine [Mass ratio] 28.3 mg/mg High 10.0 - 20.0 [facility] Glucose (Bld) [Mass/Vol]on 10-07-2022 Glucose [Mass/Vol] 136 mg/dL High 65 - 99 mg/dL [facility] Interpretation and review of laboratory results Abnormal [facility] Glucose [Mass/Vol] 124 mg/dL High 65 - 99 mg/dL [facility] Interpretation and review of laboratory results Abnormal [facility] Glucose [Mass/Vol] 124 mg/dL High 65 - 99 mg/dL [facility] Interpretation and review of laboratory results Abnormal [facility] Magnesium Levelon 08-06-2023 Magnesium [Mass/Vol] 2.1 mg/dL 1.6 - 2 .4 mg/dL [facility] Magnesium [Mass/Vol]on 08-06 Interpretation and review of laboratory results Normal [facility] Phosphate [Mass/Vol]on 08-06 Interpretation and review of laboratory results Normal [facility] Phosphoruson 08-06-2023 Phosphate [Mass/Vol] 3.5 mg/dL 2.7 - 4 .5 mg/dL [facility] US Abdomenon 08-06-2023 Radiology Study observation (narrative) [facility] CBC Auto Differentialon 07-22 Basophils (Bld) [#/Vol] 0.01 10*3/uL [facility] Basophils/100 WBC (Bld) 0.4 % [facility] Eosinophils (Bld) [#/Vol] 0.04 10*3/uL [facility] Eosinophils/100 WBC (Bld) 1.6 % [facility] Erythrocyte distribution width (RBC) [Entitic vol] 15.7 % High 11.6 - 14.8 % [facility] Hematocrit (Bld) [Volume fraction] 30.1 % Low 41.0 - 53.0 % [facility] Hemoglobin (Bld) [Mass/Vol] 9.4 g/dL Low 13.5 - 17.5 g/dL [facility] Immature granulocytes (Bld) [#/Vol] 0.01 10*3/uL [facility] Immature granulocytes/100 WBC (Bld) 0.40 % [facility] Interpretation and review of laboratory results Abnormal [facility] Lymphocytes (Bld) [#/Vol] 0.66 10*3/uL Low [facility] Lymphocytes/100 WBC (Bld) 26.6 % [facility] MCH (RBC) [Entitic mass] 21.9 pg Low 26.0 - 34.0 pg [facility] MCHC (RBC) [Mass/Vol] 31.2 g/dL 31.0 - 37.0 g/dL [facility] MCV (RBC) [Entitic vol] 70.2 fL Low 80.0 - 100.0 fL [facility] Monocytes (Bld) [#/Vol] 0.22 10*3/uL Low [facility] Monocytes/100 WBC (Bld) 8.9 % [facility] Neutrophils (Bld) [#/Vol] 1.54 10*3/uL Low [facility] Neutrophils/100 WBC (Bld) 62.1 % [facility] Nucleated RBC (Bld) [#/Vol] 0.00 10*3/uL [facility] Nucleated RBC/100 WBC (Bld) [Ratio] 0.0 % [facility] Platelets (Bld) [#/Vol] 84 10*3/uL Low [facility] RBC (Bld) [#/Vol] 4.29 10*6/uL Low [facility] eah WBC (Bld) [#/Vol] 2.48 10*3/uL Low [facility] CBC and Diff Morphologyon Interpretation and review of laboratory results Abnormal [facility] Ovalocytes LM Ql (Bld) Moderate [facility] Polychromasia LM Ql (Bld) Few [facility] RBC morphology finding Nom (Bld) See Comment [facility] Schistocytes Auto Ql (Bld) Few Abnormal See Comment [facility] Target cells LM Ql (Bld) Few [facility] Comprehensive metabolic 2000 panelOrdered By: Debbie Deutsch on 08-05-2023 Albumin [Mass/Vol] 2.6 g/dL Low 3.2 - 5.2 g/dL [facility] ALP [Catalytic activity/Vol] 70 U/L 40 - 150 U/L [facility] ALT [Catalytic activity/Vol] 14 U/L 14 - 65 U/L [facility] Anion gap [Moles/Vol] 9 mmol/L Low 10 - 20 mmol/L [facility] AST [Catalytic activity/Vol] 13 U/L [facility] Bilirubin [Mass/Vol] 0.5 mg/dL 0.0 - 1 .3 mg/dL [facility] Calcium [Mass/Vol] 7.9 mg/dL Low 8.4 - 10. 2 mg/dL [facility] Chloride [Moles/Vol] 107 mmol/L 98 - 10 8 mmol/L [facility] Creatinine [Mass/Vol] 0.75 mg/dL 0.50 - 1.30 mg/dL [facility] GFR/1.73 sq M.predicted CKD-EPI (S/P/Bld) [Vol rate/Area] 105 - PINF [facility] Glucose [Mass/Vol] 110 mg/dL High 65 - 99 mg/dL [facility] HCO3 [Moles/Vol] 27 mmol/L 21 - 32 mmol/L [facility] Interpretation and review of laboratory results Abnormal [facility] Potassium [Moles/Vol] 4.3 mmol/L 3.5 - 5.1 mmol/L [facility] Protein [Mass/Vol] 6.4 g/dL 6.0 - 8.0 g/dL [facility] Sodium [Moles/Vol] 139 mmol/L 135 - 145 mmol/L [facility] Urea nitrogen [Mass/Vol] 21 mg/dL 8 - 25 mg/dL [facility] Urea nitrogen/Creatinine [Mass ratio] 28.0 mg/mg High 10.0 - 20.0 [facility] Glucose (Bld) [Mass/Vol]on 1 10-06-2022 Glucose [Mass/Vol] 98 mg/dL 65 - 99 mg/dL [facility] Interpretation and review of laboratory results Normal [facility] Glucose [Mass/Vol] 102 mg/dL High 65 - 99 mg/dL [facility] Interpretation and review of laboratory results Abnormal [facility] Magnesium Levelon 08-05-2023 Magnesium [Mass/Vol] 2.0 mg/dL 1.6 - 2 .4 mg/dL [facility] Magnesium [Mass/Vol]on 08-05 Interpretation and review of laboratory results Normal [facility] Phosphate [Mass/Vol]on 08-05 Interpretation and review of laboratory results Normal [facility] Phosphoruson 08-05-2023 Phosphate [Mass/Vol] 3.5 mg/dL 2.7 - 4 .5 mg/dL [facility] Reticulocytes panel (Bld)on 08-05-2023 Hemoglobin Auto (Reticulocytes) [Entitic mass] 22.8 PG Low 27.7 - 38.2 PG [facility] Immature reticulocytes (Bld) [#/Vol] 21.9 % High 2.3 - 15.9 % [facility] Interpretation and review of laboratory results Abnormal [facility] Reticulocytes (Bld) [#/Vol] 0.077 10*3/uL [facility] Reticulocytes/100 RBC (Bld) 1.8 % [facility] CBC Auto Differentialon 07-22 Basophils (Bld) [#/Vol] 0.01 10*3/uL [facility] Basophils/100 WBC (Bld) 0.4 % [facility] Eosinophils (Bld) [#/Vol] 0.06 10*3/uL [facility] Eosinophils/100 WBC (Bld) 2.6 % [facility] Erythrocyte distribution width (RBC) [Entitic vol] 15.7 % High 11.6 - 14.8 % [facility] Hematocrit (Bld) [Volume fraction] 30.6 % Low 41.0 - 53.0 % [facility] Hemoglobin (Bld) [Mass/Vol] 9.4 g/dL Low 13.5 - 17.5 g/dL [facility] Immature granulocytes (Bld) [#/Vol] 0.01 10*3/uL [facility] Immature granulocytes/100 WBC (Bld) 0.40 % [facility] Interpretation and review of laboratory results Abnormal [facility] Lymphocytes (Bld) [#/Vol] 0.67 10*3/uL Low [facility] Lymphocytes/100 WBC (Bld) 29.1 % [facility] MCH (RBC) [Entitic mass] 21.5 pg Low 26.0 - 34.0 pg [facility] MCHC (RBC) [Mass/Vol] 30.7 g/dL Low 31.0 - 37.0 g/dL [facility] MCV (RBC) [Entitic vol] 69.9 fL Low 80.0 - 100.0 fL [facility] Monocytes (Bld) [#/Vol] 0.25 10*3/uL Low [facility] Monocytes/100 WBC (Bld) 10.9 % [facility] Neutrophils (Bld) [#/Vol] 1.30 10*3/uL Low [facility] Neutrophils/100 WBC (Bld) 56.6 % [facility] Nucleated RBC (Bld) [#/Vol] 0.00 10*3/uL [facility] Nucleated RBC/100 WBC (Bld) [Ratio] 0.0 % [facility] Platelets (Bld) [#/Vol] 84 10*3/uL Low [facility] RBC (Bld) [#/Vol] 4.38 10*6/uL Low [facility] ealth WBC (Bld) [#/Vol] 2.30 10*3/uL Low [facility] eah [facility] CBC and Diff Morphologyon Ovalocytes LM Ql (Bld) Few [facility] RBC morphology finding Nom (Bld) See Comment [facility] Target cells LM Ql (Bld) Moderate [facility] Cobalamin (Vitamin B12) [Mas s/Vol]on 08-04-2023 Interpretation and review of laboratory results Normal [facility] Comprehensive metabolic 2000 panelOrdered By: Joslyn Page on 08-04-2023 Albumin [Mass/Vol] 2.7 g/dL Low 3.2 - 5.2 g/dL [facility] ALP [Catalytic activity/Vol] 65 U/L 40 - 150 U/L [facility] ALT [Catalytic activity/Vol] 15 U/L 14 - 65 U/L [facility] Anion gap [Moles/Vol] 7 mmol/L Low 10 - 20 mmol/L [facility] AST [Catalytic activity/Vol] 13 U/L [facility] Bilirubin [Mass/Vol] 0.5 mg/dL 0.0 - 1 .3 mg/dL [facility] Calcium [Mass/Vol] 8.4 mg/dL 8.4 - 10. 2 mg/dL [facility] Chloride [Moles/Vol] 107 mmol/L 98 - 10 8 mmol/L [facility] Creatinine [Mass/Vol] 0.60 mg/dL 0.50 - 1.30 mg/dL [facility] GFR/1.73 sq M.predicted CKD-EPI (S/P/Bld) [Vol rate/Area] 113 - PINF [facility] Glucose [Mass/Vol] 92 mg/dL 65 - 99 mg/dL [facility] HCO3 [Moles/Vol] 29 mmol/L 21 - 32 mmol/L [facility] Interpretation and review of laboratory results Abnormal [facility] Potassium [Moles/Vol] 4.3 mmol/L 3.5 - 5.1 mmol/L [facility] Protein [Mass/Vol] 6.6 g/dL 6.0 - 8.0 g/dL [facility] Sodium [Moles/Vol] 139 mmol/L 135 - 145 mmol/L [facility] Urea nitrogen [Mass/Vol] 18 mg/dL 8 - 25 mg/dL [facility] Urea nitrogen/Creatinine [Mass ratio] 30.0 mg/mg High 10.0 - 20.0 [facility] Folateon 08-04-2023 Folate [Mass/Vol] 13.0 ng/mL 3.1 - 17.5 ng/mL [facility] Folate [Mass/Vol]on 08-04-20 Interpretation and review of laboratory results Normal [facility] Glucose (Bld) [Mass/Vol]on 10-05-2022 Glucose [Mass/Vol] 143 mg/dL High 65 - 99 mg/dL [facility] Interpretation and review of laboratory results Abnormal [facility] Glucose [Mass/Vol] 140 mg/dL High 65 - 99 mg/dL [facility] Interpretation and review of laboratory results Abnormal [facility] Glucose [Mass/Vol] 123 mg/dL High 65 - 99 mg/dL [facility] Interpretation and review of laboratory results Abnormal [facility] Glucose [Mass/Vol] 93 mg/dL 65 - 99 mg/dL [facility] Interpretation and review of laboratory results Normal [facility] Iron Study with Ferritinon 10-05-2022 Ferritin [Mass/Vol] 33 ng/mL 30 - 400 ng/mL [facility] Interpretation and review of laboratory results Abnormal [facility] Iron [Mass/Vol] 37 ug/dL Low [facility] h Iron binding capacity [Mass/Vol] 273 [facility] Iron saturation [Mass fraction] 14 % Low 20 - 50 % [facility] LDHon 08-04-2023 LDH Lactate to pyruvate reaction [Catalytic activity/Vol] 130 U/L 100 - 250 U/L [facility] LDH Lactate to pyruvate reac tion [Catalytic activity/Vol]on 08-04-2023 Interpretation and review of laboratory results Normal [facility] Magnesium Levelon 08-04-2023 Magnesium [Mass/Vol] 2.0 mg/dL 1.6 - 2 .4 mg/dL [facility] Magnesium [Mass/Vol]on 08-04 Interpretation and review of laboratory results Normal [facility] Phosphate [Mass/Vol]on 08-04 Interpretation and review of laboratory results Normal [facility] Phosphoruson 08-04-2023 Phosphate [Mass/Vol] 4.0 mg/dL 2.7 - 4 .5 mg/dL [facility] Vitamin B12on 08-04-2023 Cobalamin (Vitamin B12) [Mass/Vol] 305 pg/mL 193 - 986 pg/mL [facility] Wound Aerobic CultureOrdered By: Neeru Barroso on 08-04-2023 Bacteria identified Aer cx Nom (Wound) No Growth After 48 Hours [facility] Microscopic observation Gram stain Nom (Wound) Many WBC [facility] Microscopic observation Gram stain Nom (Wound) Positive [facility] Microscopic observation Gram stain Nom (Wound) Moderate RBC [facility] Bacteria identified Cx Nom ( Bld)on 08-03-2023 Interpretation and review of laboratory results Normal [facility] CBC Auto Differentialon 07-22 Basophils (Bld) [#/Vol] 0.01 10*3/uL [facility] Basophils/100 WBC (Bld) 0.3 % [facility] Eosinophils (Bld) [#/Vol] 0.07 10*3/uL [facility] Eosinophils/100 WBC (Bld) 2.1 % [facility] Erythrocyte distribution width (RBC) [Entitic vol] 16.0 % High 11.6 - 14.8 % [facility] Hematocrit (Bld) [Volume fraction] 33.4 % Low 41.0 - 53.0 % [facility] Hemoglobin (Bld) [Mass/Vol] 10.4 g/dL Low 13.5 - 17.5 g/dL [facility] Immature granulocytes (Bld) [#/Vol] 0.01 10*3/uL [facility] Immature granulocytes/100 WBC (Bld) 0.30 % [facility] Interpretation and review of laboratory results Abnormal [facility] Lymphocytes (Bld) [#/Vol] 0.76 10*3/uL Low [facility] Lymphocytes/100 WBC (Bld) 23.0 % [facility] MCH (RBC) [Entitic mass] 21.8 pg Low 26.0 - 34.0 pg [facility] MCHC (RBC) [Mass/Vol] 31.1 g/dL 31.0 - 37.0 g/dL [facility] MCV (RBC) [Entitic vol] 70.2 fL Low 80.0 - 100.0 fL [facility] Monocytes (Bld) [#/Vol] 0.34 10*3/uL [facility] Monocytes/100 WBC (Bld) 10.3 % [facility] Neutrophils (Bld) [#/Vol] 2.12 10*3/uL [facility] Neutrophils/100 WBC (Bld) 64.0 % [facility] Nucleated RBC (Bld) [#/Vol] 0.00 10*3/uL [facility] Nucleated RBC/100 WBC (Bld) [Ratio] 0.0 % [facility] Platelets (Bld) [#/Vol] 104 10*3/uL Low [facility] RBC (Bld) [#/Vol] 4.76 10*6/uL [facility] WBC (Bld) [#/Vol] 3.31 10*3/uL Low [facility] Comprehensive metabolic 2000 panelOrdered By: Jack Vines on 08-03-2023 Albumin [Mass/Vol] 3.0 g/dL Low 3.2 - 5.2 g/dL [facility] ALP [Catalytic activity/Vol] 81 U/L 40 - 150 U/L [facility] ALT [Catalytic activity/Vol] 16 U/L 14 - 65 U/L [facility] Anion gap [Moles/Vol] 7 mmol/L Low 10 - 20 mmol/L [facility] AST [Catalytic activity/Vol] 15 U/L [facility] Bilirubin [Mass/Vol] 0.5 mg/dL 0.0 - 1 .3 mg/dL [facility] Calcium [Mass/Vol] 8.3 mg/dL Low 8.4 - 10. 2 mg/dL [facility] Chloride [Moles/Vol] 105 mmol/L 98 - 10 8 mmol/L [facility] Creatinine [Mass/Vol] 0.60 mg/dL 0.50 - 1.30 mg/dL [facility] GFR/1.73 sq M.predicted CKD-EPI (S/P/Bld) [Vol rate/Area] 113 - PINF [facility] Glucose [Mass/Vol] 97 mg/dL 65 - 99 mg/dL [facility] HCO3 [Moles/Vol] 28 mmol/L 21 - 32 mmol/L [facility] Interpretation and review of laboratory results Abnormal [facility] Potassium [Moles/Vol] 4.1 mmol/L 3.5 - 5.1 mmol/L [facility] Protein [Mass/Vol] 7.4 g/dL 6.0 - 8.0 g/dL [facility] Sodium [Moles/Vol] 136 mmol/L 135 - 145 mmol/L [facility] Urea nitrogen [Mass/Vol] 17 mg/dL 8 - 25 mg/dL [facility] Urea nitrogen/Creatinine [Mass ratio] 28.3 mg/mg High 10.0 - 20.0 [facility] Glucose (Bld) [Mass/Vol]on 10-04-2022 Glucose [Mass/Vol] 134 mg/dL High 65 - 99 mg/dL [facility] Interpretation and review of laboratory results Abnormal [facility] Glucose [Mass/Vol] 118 mg/dL High 65 - 99 mg/dL [facility] Interpretation and review of laboratory results Abnormal [facility] Glucose [Mass/Vol] 117 mg/dL High 65 - 99 mg/dL [facility] Interpretation and review of laboratory results Abnormal [facility] Glucose [Mass/Vol] 93 mg/dL 65 - 99 mg/dL [facility] Interpretation and review of laboratory results Normal [facility] Glucose [Mass/Vol] 155 mg/dL High 65 - 99 mg/dL [facility] Interpretation and review of laboratory results Abnormal [facility] Laboratory - Microbiology an d Antimicrobial susceptibilityon 08-03-2023 Bacteria identified Cx Nom (Bld) No Growth After 5 Days [facility] h Magnesium Levelon 08-03-2023 Magnesium [Mass/Vol] 1.8 mg/dL 1.6 - 2 .4 mg/dL [facility] No Panel Informationon 08-03 Interpretation and review of laboratory results Normal [facility] Phosphoruson 08-03-2023 Phosphate [Mass/Vol] 3.4 mg/dL 2.7 - 4 .5 mg/dL [facility] Wound Aerobic CultureOrdered By: Elodia Ngo on 08-03-2023 Bacteria identified Aer cx Nom (Wound) No Growth After 48 Hours [facility] Microscopic observation Gram stain Nom (Wound) No Organisms Seen [facility] Microscopic observation Gram stain Nom (Wound) Few WBC [facility] CBC Auto Differentialon 07-22 Basophils (Bld) [#/Vol] 0.00 10*3/uL [facility] Basophils/100 WBC (Bld) 0.0 % [facility] Eosinophils (Bld) [#/Vol] 0.06 10*3/uL [facility] Eosinophils/100 WBC (Bld) 2.3 % [facility] Erythrocyte distribution width (RBC) [Entitic vol] 15.6 % High 11.6 - 14.8 % [facility] Hematocrit (Bld) [Volume fraction] 31.4 % Low 41.0 - 53.0 % [facility] Hemoglobin (Bld) [Mass/Vol] 10.0 g/dL Low 13.5 - 17.5 g/dL [facility] Immature granulocytes (Bld) [#/Vol] 0.00 10*3/uL [facility] Immature granulocytes/100 WBC (Bld) 0.00 % [facility] Interpretation and review of laboratory results Abnormal [facility] Lymphocytes (Bld) [#/Vol] 0.65 10*3/uL Low [facility] Lymphocytes/100 WBC (Bld) 24.7 % [facility] MCH (RBC) [Entitic mass] 22.1 pg Low 26.0 - 34.0 pg [facility] MCHC (RBC) [Mass/Vol] 31.8 g/dL 31.0 - 37.0 g/dL [facility] MCV (RBC) [Entitic vol] 69.5 fL Low 80.0 - 100.0 fL [facility] Monocytes (Bld) [#/Vol] 0.22 10*3/uL Low [facility] Monocytes/100 WBC (Bld) 8.4 % [facility] Neutrophils (Bld) [#/Vol] 1.70 10*3/uL [facility] Neutrophils/100 WBC (Bld) 64.6 % [facility] Nucleated RBC (Bld) [#/Vol] 0.00 10*3/uL [facility] Nucleated RBC/100 WBC (Bld) [Ratio] 0.0 % [facility] Platelets (Bld) [#/Vol] 92 10*3/uL Low [facility] RBC (Bld) [#/Vol] 4.52 10*6/uL [facility] ealth WBC (Bld) [#/Vol] 2.63 10*3/uL Low [facility] and Diff Morphologyon Ovalocytes LM Ql (Bld) Moderate [facility] RBC morphology finding Nom (Bld) See Comment [facility] Target cells LM Ql (Bld) Few [facility] Comprehensive metabolic 2000 panelOrdered By: Katerin Crum on 08-02-2023 Albumin [Mass/Vol] 2.9 g/dL Low 3.2 - 5.2 g/dL [facility] ALP [Catalytic activity/Vol] 70 U/L 40 - 150 U/L [facility] ALT [Catalytic activity/Vol] 15 U/L 14 - 65 U/L [facility] Anion gap [Moles/Vol] 7 mmol/L Low 10 - 20 mmol/L [facility] AST [Catalytic activity/Vol] 12 U/L [facility] Bilirubin [Mass/Vol] 0.6 mg/dL 0.0 - 1 .3 mg/dL [facility] Calcium [Mass/Vol] 8.5 mg/dL 8.4 - 10. 2 mg/dL [facility] Chloride [Moles/Vol] 106 mmol/L 98 - 10 8 mmol/L [facility] Creatinine [Mass/Vol] 0.62 mg/dL 0.50 - 1.30 mg/dL [facility] GFR/1.73 sq M.predicted CKD-EPI (S/P/Bld) [Vol rate/Area] 111 - PINF [facility] Glucose [Mass/Vol] 92 mg/dL 65 - 99 mg/dL [facility] HCO3 [Moles/Vol] 28 mmol/L 21 - 32 mmol/L [facility] Interpretation and review of laboratory results Abnormal [facility] Potassium [Moles/Vol] 4.4 mmol/L 3.5 - 5.1 mmol/L [facility] Protein [Mass/Vol] 7.0 g/dL 6.0 - 8.0 g/dL [facility] Sodium [Moles/Vol] 137 mmol/L 135 - 145 mmol/L [facility] Urea nitrogen [Mass/Vol] 17 mg/dL 8 - 25 mg/dL [facility] Urea nitrogen/Creatinine [Mass ratio] 27.4 mg/mg High 10.0 - 20.0 [facility] Glucose (Bld) [Mass/Vol]on 10-03-2022 Glucose [Mass/Vol] 125 mg/dL High 65 - 99 mg/dL [facility] Interpretation and review of laboratory results Abnormal [facility] Glucose [Mass/Vol] 181 mg/dL High 65 - 99 mg/dL [facility] Interpretation and review of laboratory results Abnormal [facility] Glucose [Mass/Vol] 127 mg/dL High 65 - 99 mg/dL [facility] Interpretation and review of laboratory results Abnormal [facility] Glucose [Mass/Vol] 104 mg/dL High 65 - 99 mg/dL [facility] Interpretation and review of laboratory results Abnormal [facility] Magnesium Levelon 08-02-2023 Magnesium [Mass/Vol] 2.0 mg/dL 1.6 - 2 .4 mg/dL [facility] Magnesium [Mass/Vol]on 08-02 Interpretation and review of laboratory results Normal [facility] Phosphate [Mass/Vol]on 08-02 Interpretation and review of laboratory results Normal [facility] Phosphoruson 08-02-2023 Phosphate [Mass/Vol] 3.8 mg/dL 2.7 - 4 .5 mg/dL [facility] CBC Auto Differentialon 07-22 Basophils (Bld) [#/Vol] 0.01 10*3/uL [facility] Basophils/100 WBC (Bld) 0.4 % [facility] Eosinophils (Bld) [#/Vol] 0.07 10*3/uL [facility] Eosinophils/100 WBC (Bld) 2.9 % [facility] Erythrocyte distribution width (RBC) [Entitic vol] 15.8 % High 11.6 - 14.8 % [facility] Hematocrit (Bld) [Volume fraction] 30.3 % Low 41.0 - 53.0 % [facility] Hemoglobin (Bld) [Mass/Vol] 9.6 g/dL Low 13.5 - 17.5 g/dL [facility] Immature granulocytes (Bld) [#/Vol] 0.01 10*3/uL [facility] Immature granulocytes/100 WBC (Bld) 0.40 % [facility] Interpretation and review of laboratory results Abnormal [facility] Lymphocytes (Bld) [#/Vol] 0.62 10*3/uL Low [facility] Lymphocytes/100 WBC (Bld) 25.5 % [facility] MCH (RBC) [Entitic mass] 22.2 pg Low 26.0 - 34.0 pg [facility] MCHC (RBC) [Mass/Vol] 31.7 g/dL 31.0 - 37.0 g/dL [facility] MCV (RBC) [Entitic vol] 70.1 fL Low 80.0 - 100.0 fL [facility] Monocytes (Bld) [#/Vol] 0.20 10*3/uL Low [facility] Monocytes/100 WBC (Bld) 8.2 % [facility] Neutrophils (Bld) [#/Vol] 1.52 10*3/uL Low [facility] Neutrophils/100 WBC (Bld) 62.6 % [facility] Nucleated RBC (Bld) [#/Vol] 0.00 10*3/uL [facility] Nucleated RBC/100 WBC (Bld) [Ratio] 0.0 % [facility] Platelets (Bld) [#/Vol] 89 10*3/uL Low [facility] RBC (Bld) [#/Vol] 4.32 10*6/uL Low [facility] ealth WBC (Bld) [#/Vol] 2.43 10*3/uL Low [facility] ealth [facility] CBC and Diff Morphologyon Ovalocytes LM Ql (Bld) Moderate [facility] RBC morphology finding Nom (Bld) See Comment [facility] Target cells LM Ql (Bld) Few [facility] Comprehensive metabolic 2000 panelon 08-01-2023 Albumin [Mass/Vol] 2.6 g/dL Low 3.2 - 5.2 g/dL [facility] ALP [Catalytic activity/Vol] 68 U/L 40 - 150 U/L [facility] ALT [Catalytic activity/Vol] 13 U/L Low 14 - 65 U/L [facility] Anion gap [Moles/Vol] 9 mmol/L Low 10 - 20 mmol/L [facility] AST [Catalytic activity/Vol] 12 U/L [facility] Bilirubin [Mass/Vol] 0.6 mg/dL 0.0 - 1 .3 mg/dL [facility] Calcium [Mass/Vol] 7.9 mg/dL Low 8.4 - 10. 2 mg/dL [facility] Chloride [Moles/Vol] 105 mmol/L 98 - 10 8 mmol/L [facility] Creatinine [Mass/Vol] 0.70 mg/dL 0.50 - 1.30 mg/dL [facility] GFR/1.73 sq M.predicted CKD-EPI (S/P/Bld) [Vol rate/Area] 107 - PINF [facility] Glucose [Mass/Vol] 182 mg/dL High 65 - 99 mg/dL [facility] HCO3 [Moles/Vol] 27 mmol/L 21 - 32 mmol/L [facility] Interpretation and review of laboratory results Abnormal [facility] Potassium [Moles/Vol] 3.9 mmol/L 3.5 - 5.1 mmol/L [facility] Protein [Mass/Vol] 6.7 g/dL 6.0 - 8.0 g/dL [facility] Sodium [Moles/Vol] 137 mmol/L 135 - 145 mmol/L [facility] Urea nitrogen [Mass/Vol] 16 mg/dL 8 - 25 mg/dL [facility] Urea nitrogen/Creatinine [Mass ratio] 22.9 mg/mg High 10.0 - 20.0 [facility] Creatinine [Mass/Vol]on 07-22 GFR/1.73 sq M.predicted CKD-EPI (S/P/Bld) [Vol rate/Area] 111 - PINF [facility] Interpretation and review of laboratory results Normal [facility] Creatinine, serumon 08-01-20 Creatinine [Mass/Vol] 0.63 mg/dL 0.50 - 1.30 mg/dL [facility] Glucose (Bld) [Mass/Vol]on 10-02-2022 Glucose [Mass/Vol] 111 mg/dL High 65 - 99 mg/dL [facility] Interpretation and review of laboratory results Abnormal [facility] Glucose [Mass/Vol] 127 mg/dL High 65 - 99 mg/dL [facility] Interpretation and review of laboratory results Abnormal [facility] Magnesium Levelon 08-01-2023 Magnesium [Mass/Vol] 1.8 mg/dL 1.6 - 2 .4 mg/dL [facility] Magnesium [Mass/Vol]on 08-01 Interpretation and review of laboratory results Normal [facility] Phosphate [Mass/Vol]on 08-01 Interpretation and review of laboratory results Normal [facility] Phosphoruson 08-01-2023 Phosphate [Mass/Vol] 2.8 mg/dL 2.7 - 4 .5 mg/dL [facility] Vancomycin Level, Randomon 10-02-2022 Vancomycin [Mass/Vol] 15.5 mcg/mL [facility] Vancomycin [Mass/Vol]on 07-22 [facility] Wound Aerobic CultureOrdered By: Deonna Queen on 08-01-2023 Bacteria identified Aer cx Nom (Wound) No Growth After 48 Hours [facility] Microscopic observation Gram stain Nom (Wound) Moderate WBC [facility] Microscopic observation Gram stain Nom (Wound) No Organisms Seen [facility] Basic metabolic 2000 panelon 07-31-2023 Anion gap [Moles/Vol] 9 mmol/L Low 10 - 20 mmol/L [facility] Calcium [Mass/Vol] 7.9 mg/dL Low 8.4 - 10. 2 mg/dL [facility] Chloride [Moles/Vol] 107 mmol/L 98 - 10 8 mmol/L [facility] Creatinine [Mass/Vol] 0.70 mg/dL 0.50 - 1.30 mg/dL [facility] GFR/1.73 sq M.predicted CKD-EPI (S/P/Bld) [Vol rate/Area] 107 - PINF [facility] Glucose [Mass/Vol] 135 mg/dL High 65 - 99 mg/dL [facility] HCO3 [Moles/Vol] 27 mmol/L 21 - 32 mmol/L [facility] Interpretation and review of laboratory results Abnormal [facility] Potassium [Moles/Vol] 3.9 mmol/L 3.5 - 5.1 mmol/L [facility] Sodium [Moles/Vol] 139 mmol/L 135 - 145 mmol/L [facility] Urea nitrogen [Mass/Vol] 16 mg/dL 8 - 25 mg/dL [facility] Urea nitrogen/Creatinine [Mass ratio] 22.9 mg/mg High 10.0 - 20.0 [facility] Creatinine [Mass/Vol]on 07-22 GFR/1.73 sq M.predicted CKD-EPI (S/P/Bld) [Vol rate/Area] 107 - PINF [facility] Interpretation and review of laboratory results Normal [facility] Creatinine, serumon 07-31-20 Creatinine [Mass/Vol] 0.71 mg/dL 0.50 - 1.30 mg/dL [facility] Glucose (Bld) [Mass/Vol]on 10-01-2022 Glucose [Mass/Vol] 137 mg/dL High 65 - 99 mg/dL [facility] Interpretation and review of laboratory results Abnormal [facility] Glucose [Mass/Vol] 173 mg/dL High 65 - 99 mg/dL [facility] Interpretation and review of laboratory results Abnormal [facility] Glucose [Mass/Vol] 155 mg/dL High 65 - 99 mg/dL [facility] Interpretation and review of laboratory results Abnormal [facility] Glucose [Mass/Vol] 88 mg/dL 65 - 99 mg/dL [facility] Interpretation and review of laboratory results Normal [facility] Magnesium Levelon 07-31-2023 Magnesium [Mass/Vol] 1.9 mg/dL 1.6 - 2 .4 mg/dL [facility] Magnesium [Mass/Vol]on 07-31 Interpretation and review of laboratory results Normal [facility] Wound Aerobic CultureOrdered By: Deonna Queen on 07-31-2023 Bacteria identified Aer cx Nom (Wound) Moderate Growth Normal Skin Sobeida [facility] Microscopic observation Gram stain Nom (Wound) No Organisms Seen [facility] Microscopic observation Gram stain Nom (Wound) No WBC Seen [facility] Microscopic observation Gram stain Nom (Wound) Rare RBC [facility] CBC Auto Differentialon Basophils (Bld) [#/Vol] 0.01 10*3/uL [facility] Basophils/100 WBC (Bld) 0.4 % [facility] Eosinophils (Bld) [#/Vol] 0.06 10*3/uL [facility] Eosinophils/100 WBC (Bld) 2.3 % [facility] Erythrocyte distribution width (RBC) [Entitic vol] 15.8 % High 11.6 - 14.8 % [facility] Hematocrit (Bld) [Volume fraction] 32.4 % Low 41.0 - 53.0 % [facility] Hemoglobin (Bld) [Mass/Vol] 10.1 g/dL Low 13.5 - 17.5 g/dL [facility] Immature granulocytes (Bld) [#/Vol] 0.01 10*3/uL [facility] Immature granulocytes/100 WBC (Bld) 0.40 % [facility] Interpretation and review of laboratory results Abnormal [facility] Lymphocytes (Bld) [#/Vol] 0.75 10*3/uL Low [facility] Lymphocytes/100 WBC (Bld) 29.3 % [facility] MCH (RBC) [Entitic mass] 21.9 pg Low 26.0 - 34.0 pg [facility] MCHC (RBC) [Mass/Vol] 31.2 g/dL 31.0 - 37.0 g/dL [facility] MCV (RBC) [Entitic vol] 70.1 fL Low 80.0 - 100.0 fL [facility] Monocytes (Bld) [#/Vol] 0.19 10*3/uL Low [facility] Monocytes/100 WBC (Bld) 7.4 % [facility] Neutrophils (Bld) [#/Vol] 1.54 10*3/uL Low [facility] Neutrophils/100 WBC (Bld) 60.2 % [facility] Nucleated RBC (Bld) [#/Vol] 0.00 10*3/uL [facility] Nucleated RBC/100 WBC (Bld) [Ratio] 0.0 % [facility] Platelets (Bld) [#/Vol] 105 10*3/uL Low [facility] RBC (Bld) [#/Vol] 4.62 10*6/uL [facility] ealth WBC (Bld) [#/Vol] 2.56 10*3/uL Low [facility] eah [facility] CBC and Diff Morphologyon Ovalocytes LM Ql (Bld) Moderate [facility] RBC morphology finding Nom (Bld) See Comment [facility] Target cells LM Ql (Bld) Few [facility] CRP [Mass/Vol]on 07-30-2023 Interpretation and review of laboratory results Normal [facility] CRP, Inflammationon 07-30-20 CRP [Mass/Vol] 5.2 mg/L NINF - 10.0 mg/L [facility] CT Knee - right W contrast I Von 07-30-2023 GE RIS GE RIS [facility] CT Knee - right W contrast I VOrdered By: Rodolfo Garcia on 07-30-2023 [facility] Work Phone: ESR Westergren method (Bld) [Velocity]on 07-30-2023 ESR (Bld) [Velocity] 12 mm/h [facility] Interpretation and review of laboratory results Normal [facility] Glucose (Bld) [Mass/Vol]on 1 09-30-2022 Glucose [Mass/Vol] 129 mg/dL High 65 - 99 mg/dL [facility] Interpretation and review of laboratory results Abnormal [facility] Glucose [Mass/Vol] 194 mg/dL High 65 - 99 mg/dL [facility] Interpretation and review of laboratory results Abnormal [facility] Glucose [Mass/Vol] 129 mg/dL High 65 - 99 mg/dL [facility] Interpretation and review of laboratory results Abnormal [facility] Glucose [Mass/Vol] 116 mg/dL High 65 - 99 mg/dL [facility] Interpretation and review of laboratory results Abnormal [facility] HbA1c (Bld) [Mass fraction]O rdered By: Britni Aleman on 07-30-2023 Average glucose Estimated from glycated hemoglobin (Bld) [Mass/Vol] 88 mg/dL 68 - 114 mg/dL [facility] Interpretation and review of laboratory results Normal [facility] Hemoglobin [id number] By: Soco Aleman on 07-30-2023 HbA1c (Bld) [Mass fraction] 4.7 % 4.0 - 5.6 % [facility] MRSA DNA Amplified ProbeOrde red By: Claudia Gross on 07-30-2023 MRSA DNA HERMAN+probe Ql (Unsp spec) Negative Not Detected, MRSA NEGATIVE [facility] MRSA DNA HERMAN+probe Ql (Unsp spec)Ordered By: Claudia Gross on 07-30-2023 Interpretation and review of laboratory results Normal [facility] Magnesiumon 07-30-2023 Magnesium [Mass/Vol] 1.9 mg/dL 1.6 - 2 .4 mg/dL [facility] Magnesium [Mass/Vol]on 07-30 [facility] No Panel Informationon 07-30 [facility] Interpretation and review of laboratory results Normal [facility] Renal function 2000 panelon 07-30-2023 Albumin [Mass/Vol] 2.8 g/dL Low 3.2 - 5.2 g/dL [facility] Anion gap [Moles/Vol] 7 mmol/L Low 10 - 20 mmol/L [facility] Calcium [Mass/Vol] 8.1 mg/dL Low 8.4 - 10. 2 mg/dL [facility] Chloride [Moles/Vol] 105 mmol/L 98 - 10 8 mmol/L [facility] Creatinine [Mass/Vol] 0.67 mg/dL 0.50 - 1.30 mg/dL [facility] GFR/1.73 sq M.predicted CKD-EPI (S/P/Bld) [Vol rate/Area] 109 - PINF [facility] Glucose [Mass/Vol] 94 mg/dL 65 - 99 mg/dL [facility] HCO3 [Moles/Vol] 30 mmol/L 21 - 32 mmol/L [facility] Interpretation and review of laboratory results Abnormal [facility] Phosphate [Mass/Vol] 3.7 mg/dL 2.7 - 4 .5 mg/dL [facility] Potassium [Moles/Vol] 4.1 mmol/L 3.5 - 5.1 mmol/L [facility] Sodium [Moles/Vol] 138 mmol/L 135 - 145 mmol/L [facility] Urea nitrogen [Mass/Vol] 14 mg/dL 8 - 25 mg/dL [facility] Urea nitrogen/Creatinine [Mass ratio] 20.9 mg/mg High 10.0 - 20.0 [facility] TSH DL <= 0.005 mIU/L Qnon 1 09-30-2022 TSH Qn 1.70 m[IU]/L [facility] Basic metabolic 2000 panelon 07-29-2023 Anion gap [Moles/Vol] 7 mmol/L Low 10 - 20 mmol/L [facility] Calcium [Mass/Vol] 8.2 mg/dL Low 8.4 - 10. 2 mg/dL [facility] Chloride [Moles/Vol] 105 mmol/L 98 - 10 8 mmol/L [facility] Creatinine [Mass/Vol] 0.61 mg/dL 0.50 - 1.30 mg/dL [facility] GFR/1.73 sq M.predicted CKD-EPI (S/P/Bld) [Vol rate/Area] 112 - PINF [facility] Glucose [Mass/Vol] 140 mg/dL High 65 - 99 mg/dL [facility] HCO3 [Moles/Vol] 29 mmol/L 21 - 32 mmol/L [facility] Interpretation and review of laboratory results Abnormal [facility] Potassium [Moles/Vol] 3.9 mmol/L 3.5 - 5.1 mmol/L [facility] Sodium [Moles/Vol] 137 mmol/L 135 - 145 mmol/L [facility] Urea nitrogen [Mass/Vol] 15 mg/dL 8 - 25 mg/dL [facility] Urea nitrogen/Creatinine [Mass ratio] 24.6 mg/mg High 10.0 - 20.0 [facility] CBC Auto Differentialon Basophils (Bld) [#/Vol] 0.00 10*3/uL [facility] Basophils/100 WBC (Bld) 0.0 % [facility] Eosinophils (Bld) [#/Vol] 0.03 10*3/uL [facility] Eosinophils/100 WBC (Bld) 1.1 % [facility] Erythrocyte distribution width (RBC) [Entitic vol] 15.8 % High 11.6 - 14.8 % [facility] Hematocrit (Bld) [Volume fraction] 30.8 % Low 41.0 - 53.0 % [facility] Hemoglobin (Bld) [Mass/Vol] 9.7 g/dL Low 13.5 - 17.5 g/dL [facility] Immature granulocytes (Bld) [#/Vol] 0.01 10*3/uL [facility] Immature granulocytes/100 WBC (Bld) 0.40 % [facility] Interpretation and review of laboratory results Abnormal [facility] Lymphocytes (Bld) [#/Vol] 0.49 10*3/uL Low [facility] Lymphocytes/100 WBC (Bld) 17.9 % [facility] MCH (RBC) [Entitic mass] 22.1 pg Low 26.0 - 34.0 pg [facility] MCHC (RBC) [Mass/Vol] 31.5 g/dL 31.0 - 37.0 g/dL [facility] MCV (RBC) [Entitic vol] 70.2 fL Low 80.0 - 100.0 fL [facility] Monocytes (Bld) [#/Vol] 0.22 10*3/uL Low [facility] Monocytes/100 WBC (Bld) 8.0 % [facility] Neutrophils (Bld) [#/Vol] 1.99 10*3/uL [facility] Neutrophils/100 WBC (Bld) 72.6 % [facility] Nucleated RBC (Bld) [#/Vol] 0.00 10*3/uL [facility] Nucleated RBC/100 WBC (Bld) [Ratio] 0.0 % [facility] Platelets (Bld) [#/Vol] 100 10*3/uL Low [facility] RBC (Bld) [#/Vol] 4.39 10*6/uL Low [facility] ealth WBC (Bld) [#/Vol] 2.74 10*3/uL Low [facility] eah [facility] CRP [Mass/Vol]on 07-29-2023 Interpretation and review of laboratory results Normal [facility] CRP, Inflammationon 07-29-20 CRP [Mass/Vol] 5.6 mg/L NINF - 10.0 mg/L [facility] CT Knee - right W contrast I Von 07-29-2023 Radiology Study observation (narrative) [facility] ESR Westergren method (Bld) [Velocity]on 07-29-2023 ESR (Bld) [Velocity] 31 mm/h High [facility] Interpretation and review of laboratory results Abnormal [facility] Glucose (Bld) [Mass/Vol]on 1 09-29-2022 Glucose [Mass/Vol] 132 mg/dL High 65 - 99 mg/dL [facility] Interpretation and review of laboratory results Abnormal [facility] Lactate [Moles/Vol]on 2022 Interpretation and review of laboratory results Normal [facility] Lactic Acid, Plasmaon 2022 Lactate [Moles/Vol] 1.5 mmol/L 0.6 - 2. 0 mmol/L [facility] No Panel Informationon 07-29 [facility] Cecilia Gonzales DPM 07/29/2023 11:24 PM Debridement Consent obtained? verbal Consent given by: patient Risks discussed? procedural risks discussed Immediately prior to the procedure a time out was called Performed by: physician Debridement type: surgical Level of debridement: subcutaneous tissue Post-debridement measurements Length (cm): 1.5 Width (cm): 1.5 Depth (cm): 0.3 Percent debrided: 100% Surface Area (cm^2): 2.25 Area debrided (cm^2): 2.25 Volume (cm^3): 0.68 Tissue and other material debrided: subcutaneous tissue Devitalized tissue debrided: biofilm, fibrin and slough Instrument(s) utilized: curette Bleeding: small Hemostasis obtained with: pressure Response to treatment: procedure was tolerated well [facility] Wound Debridementon 07-15-20 Cecilia Gonzales DPM 07/15/2023 11:13 AM Debridement Consent obtained? verbal Consent given by: patient Risks discussed? procedural risks discussed Performed by: physician Debridement type: surgical Level of debridement: subcutaneous tissue Pain control: lidocaine 2% Post-debridement measurements Length (cm): 2.5 Width (cm): 1.5 Depth (cm): 0.3 Percent debrided: 100% Surface Area (cm^2): 3.75 Area debrided (cm^2): 3.75 Volume (cm^3): 1.13 Tissue and other material debrided: subcutaneous tissue Devitalized tissue debrided: biofilm, fibrin and slough Instrument(s) utilized: curette Bleeding: small Hemostasis obtained with: pressure Response to treatment: procedure was tolerated well [facility] Panel Informationon 07-08 Cecilia Gonzales DPM 07/08/2023 10:16 PM Debridement Consent obtained? verbal Consent given by: patient Risks discussed? procedural risks discussed Immediately prior to the procedure a time out was called Performed by: physician Debridement type: surgical Level of debridement: subcutaneous tissue Pain control: lidocaine 2% Post-debridement measurements Length (cm): 2.5 Width (cm): 2 Depth (cm): 0.2 Percent debrided: 100% Surface Area (cm^2): 5 Area debrided (cm^2): 5 Volume (cm^3): 1 Tissue and other material debrided: subcutaneous tissue Devitalized tissue debrided: biofilm, fibrin and slough Instrument(s) utilized: curette Bleeding: small Hemostasis obtained with: pressure Response to treatment: procedure was tolerated well [facility] Panel Informationon 07-01 [facility] Cecilia Gonzales DPM 07/04/2023 2:34 AM Debridement Consent obtained? verbal Consent given by: patient Risks discussed? procedural risks discussed Immediately prior to the procedure a time out was called Performed by: physician Debridement type: surgical Level of debridement: subcutaneous tissue Pain control: lidocaine 2% Post-debridement measurements Length (cm): 3 Width (cm): 4 Depth (cm): 0.3 Percent debrided: 100% Surface Area (cm^2): 12 Area debrided (cm^2): 12 Volume (cm^3): 3.6 Tissue and other material debrided: subcutaneous tissue Devitalized tissue debrided: biofilm, clots, fibrin, necrotic debris and slough Instrument(s) utilized: curette Bleeding: small Hemostasis obtained with: pressure Response to treatment: procedure was tolerated well [facility] Wound Debridementon 07-01-20 Cecilia Gonzales DPM 07/01/2023 10:39 PM Debridement Consent obtained? verbal Consent given by: patient Risks discussed? procedural risks discussed Immediately prior to the procedure a time out was called Performed by: physician Debridement type: surgical Level of debridement: subcutaneous tissue Pain control: lidocaine 2% Post-debridement measurements Length (cm): 3 Width (cm): 4 Depth (cm): 0.3 Percent debrided: 100% Surface Area (cm^2): 12 Area debrided (cm^2): 12 Volume (cm^3): 3.6 Tissue and other material debrided: subcutaneous tissue Devitalized tissue debrided: biofilm, clots, fibrin, necrotic debris and slough Instrument(s) utilized: curette Bleeding: small Hemostasis obtained with: pressure Response to treatment: procedure was tolerated well [facility] XR KNEE RIGHT 2 VIEWS (STAND NO)on 05-30-2023 XR KNEE RIGHT 2 VIEWS (STANDARD) EXAMINATION: XR KNEE RIGHT 2 VIEWS (STANDARD) HISTORY: ORDERING SYSTEM PROVIDED HISTORY: swelling/pain, TECHNOLOGIST PROVIDED HISTORY: Illness/Other Reason for exam: right knee pain, swelling, redness, and drainage Cancer History: unknown Surgery, RadiationHistory: unknown Encounter Type: Initial Additional signs and symptoms: left leg swollen as well ORDERING SYSTEM PROVIDED DIAGNOSIS CODES: COMPARISON: None. FINDINGS: Two views of the right knee. Suboptimal positioning on the lateral view despite repeat. Postoperative changes of total knee replacement. Hardware components are well seated with appropriate alignment. No periprosthetic fracture or hardware loosening. Suggestion of diffuse soft tissue swelling with [id number] joint effusion. IMPRESSION: 1. Suboptimal positioning on the lateral view. 2. Grossly, no acute osseous abnormality. 3. Total knee replacement appears intact. 4. Suggestion of diffuse soft swelling with [id number] joint effusion. [facility] Workstation ID: [id number] Dictated by: KHADAR BETH on TueMay 30, 2023 5:00:22 PM EDT Transcribed by: CARLOS BARRY on TueMay 30, 2023 6:10:49 PM EDT Finalized by: KHADAR BETH on TueMay 30, 2023 6:33:03 PM EDT [facility] Comment on above: Order Comment: Injur y/Trauma or Illness?:Illness/Other How long have you had these symptoms (acute/chronic)?:Unknown Reason for exam?:right knee pain, swelling, redness, and drainage History of cancer?:unknown Surgeries, chemotherapy, or radiation?:unknown Type of Exam?:Initial Additional signs and symptoms?:left leg swollen as well CT ANGIOGRAM LOWER EXTREMITY RIGHTon 05-17-2023 CT ANGIOGRAM LOWER EXTREMITY RIGHT EXAMINATION: CT ANGIOGRAPHY ABDOMEN, PELVIS, RIGHT LOWER EXTREMITY WITH CONTRAST. HISTORY: Injury/Trauma or Illness?:Injury/Trauma How long have you had these symptoms (acute/chronic)?:Acute Lower leg trauma COMPARISON: 04/25/2022. TECHNIQUE: Axial imaging is performed at 2 mm collimation through the abdomen, pelvis, and right lower extremity following intravenous contrast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 Maker: If enter sterile field, uses sterile gown and gloves, cap, mask/eye protection. N/A 4. Prep site with ChloraPrep for 30 sec minimum (if femoral 120 sec minimum). Yes 5. Sterile technique to drape patient from head to toe. Yes During the procedure, did the clinician 1. Maintain a sterile field. Yes 2. Obtain a qualified hook and eye machine operator IF 3 unsuccessful sticks. (except if emergent); document the number of attempts. N/A 3. Change gloves: if a catheter was exchanged over a guide wire before handling the new sterile catheter. N/A 4. Account for the guidewire at all times. Yes After the procedure, did the clinician 1. Apply a sterile dressing immediately after insertion. Yes 2. Document date and time on the dressing. Yes 3. Perform hand hygiene. Yes 4. All staff wore a mask until sterile dressing placed. Yes 5. Dispose sharps immediately after the procedure. Yes 6. Count all sharps and be accountable for both wires. Name of staff member that counted wires and sharps : KELLY Price. [X] Call light in reach. [X] Bed low and locked. [X] Tray table within reach. Lot number: [id number] Expiration Date: 2023-10-20 Arm circumference: 29 cm Internal length: 11 cm External length: 0 cm [facility] Radiology Study observation (narrative) [facility] RENAL FUNCTION PANELon 03-21 Albumin [Mass/Vol] 3.2 G/dl Low 3.5 - 5.0 G/dl [facility] Calcium [Mass/Vol] 7.5 mg/dL Low [facility] Chloride [Moles/Vol] 101 mmol/L [facility] Comment on above: Please note: Triglyc eride levels of 600mg/dL or higher may positively bias chloride results by approximately 2.1 mmol CO2 [Moles/Vol] 29 mmol/L [facility] Creatinine [Mass/Vol] 0.60 mg/dL Low [facility] GFR COMMENT Average GFR for 50-5 9 years old = 93. [facility] Comment on above: Chronic Kidney disea se, GFR = <60. Kidney failure, GFR = <15. The GFR estimate is not adjusted for extreme body surface area or acute process, nor has it been validated for women or ethnic groups other than and . Testing performed at [place], [place] [address] GFR/1.73 sq M.predicted among blacks MDRD (S/P/Bld) [Vol rate/Area] 179 mL/min/{1.73_m2} ml/min/1.73s q.m [facility] GFR/1.73 sq M.predicted among non-blacks MDRD (S/P/Bld) [Vol rate/Area] 148 mL/min/{1.73_m2} ml/min/1.73s q.m [facility] Glucose post fast [Mass/Vol] 109 mg/dL High [facility] Comment on above: NORMAL <100 mg/dL PREDIABETES 101-126 mg/dL DIABETES 126 mg/dL or higher Interpretation and review of laboratory results Abnormal [facility] Phosphate [Mass/Vol] 3.5 mg/dL [facility] Potassium [Moles/Vol] 4.4 mmol/L [facility] Sodium [Moles/Vol] 135 mmol/L Low [facility] Urea nitrogen [Mass/Vol] 28 mg/dL High [facility] RENAL PANEL,FASTINGon 2022 ALBUMIN 3.2 G/dl Low 3.5-5.0 [facility] Comment on above: Performed By: #### Micheal Go, ACBC, RENF, LIVR #### Testing performed at [address] [address] Calcium [Mass/Vol] 7.5 mg/dL Low 8.4-10.2 [facility] Comment on above: Performed By: #### Micheal Go, ACBC, RENF, LIVR #### Testing performed at [address] [address] Chloride [Moles/Vol] 101 mmol/L Normal 98-107 [facility] Comment on above: Result Comment: Krystian boyd note: Triglyceride levels of 600mg/dL or higher may positively bias chloride results by approximately 2.1 mmol Performed By: #### Micheal Go, ACBC, RENF, LIVR #### Testing performed at [address] [address] CO2 [Moles/Vol] 29 mmol/L Normal 22-30 [facility] Comment on above: Performed By: #### Micheal Go, ACBC, RENF, LIVR #### [place] [address] Creatinine [Mass/Vol] 0.60 mg/dL Low 0.7-1.2 [facility] Comment on above: Performed By: #### Micheal Go, ACBC, RENF, LIVR #### [place] [address] EST. GFR, 179 ml/min/1.73sq.m [facility] Comment on above: Performed By: #### Micheal Go, ACBC, RENF, LIVR #### [place] [address] EST. GFR,Non 148 ml/min/1.73sq.m [facility] Comment on above: Performed By: #### Micheal Go, ACBC, RENF, LIVR #### [place] [address] GFR Information Average GFR for 50-5 9 years old = 93. Normal [facility] Comment on above: Result Comment: Rn Postpartum kaveh Kidney disease, GFR = <60. Kidney failure, GFR = <15. The GFR estimate is not adjusted for extreme body surface area or acute process, nor has it been validated for women or ethnic groups other than and . Testing performed at [place] [address] Performed By: #### Micheal Go, ACBC, RENF, LIVR #### [place] [address] Glucose [Mass/Vol] 109 mg/dL High 70-100 [facility] Comment on above: Result Comment: NORMAL <100 mg/dL PREDIABETES 101-126 mg/dL DIABETES 126 mg/dL or higher Performed By: #### M Abbi, ACBC, RENF, LIVR #### [place] [address] PHOSPHOROUS 3.5 MG/DL Normal 2.5-4.5 [facility] Comment on above: Performed By: #### Micheal Go, ACBC, RENF, LIVR #### Testing performed at [address] [place] [address] Potassium [Moles/Vol] 4.4 mmol/L Normal 3.5-5.1 [facility] Comment on above: Performed By: #### TILA Gold RENF, LIVR #### Testing performed at [address] [address] Sodium [Moles/Vol] 135 mmol/L Low 137-145 [facility] Comment on above: Performed By: #### TILA Gold RENF, LIVR #### Testing performed at [address] [address] Urea nitrogen [Mass/Vol] 28 mg/dL High 7-20 [facility] Comment on above: Performed By: #### TILA Gold RENF, LIVR #### Testing performed at [address] [address] CBCon 03-20-2023 DTYPE MANUAL DIFF Normal [facility] Comment on above: Performed By: #### WILNER Gold ACBC #### Testing performed at [address] [address] Eosinophils/100 WBC (Bld) 5 % Normal 0-7.0 [facility] Comment on above: Performed By: #### WILNER Gold ACBC #### Testing performed at [address] [address] Lymphocytes/100 WBC (Bld) 38 % Normal 20.5-51.1 [facility] Comment on above: Performed By: #### WILNER Gold ACBC #### Testing performed at [address] [address] Monocytes/100 WBC (Bld) 8 % Normal 1.7-10.0 [facility] Comment on above: Performed By: #### WILNER Gold ACBC #### Testing performed at [address] [place] [address] Neutrophils/100 WBC (Bld) 49 % Normal 42.2-75.2 [facility] Comment on above: Performed By: #### WILNER Gold ACBC #### [place] [address] PLATELET COMMENT DECREASED Normal [facility] Comment on above: Result Comment: Test ing performed at [place] [address] Performed By: #### WILNER Gold ACBC #### [place] [address] RBC morphology finding Nom (Bld) 1+ Normal [facility] Comment on above: Result Comment: MICR OCYTOSIS 1+ POIKILOCYTE Performed By: #### WILNER Gold ACBC #### [place] [address] Erythrocyte distribution width (RBC) [Ratio] 15.9 % High 11.5-14.5 [facility] Comment on above: Performed By: #### WILNER Gold ACBC #### [place] [address] Hematocrit (Bld) [Volume fraction] 30.0 % Low 42.0-52.0 [facility] Comment on above: Performed By: #### WILNER Gold ACBC #### [place] [address] Hemoglobin (Bld) [Mass/Vol] 9.8 g/dL Low 14.0-18.0 [facility] Comment on above: Performed By: #### WILNER Gold ACBC #### [place] [address] MCH (RBC) [Entitic mass] 23.2 pg Low 26.0-35.0 [facility] Comment on above: Performed By: #### WILNER Gold ACBC #### [place] [address] MCHC (RBC) [Mass/Vol] 32.6 g/dL Normal 27.0-37.0 [facility] Comment on above: Performed By: #### WILNER Gold ACBC #### Testing performed at [place] [id number] MCV (RBC) [Entitic vol] 71.0 fL Low 80.0-100.0 [facility] Comment on above: Performed By: #### WILNER Godl ACBC #### [place] [address] Platelet mean volume (Bld) [Entitic vol] 8.5 fL Normal 7.4-11.0 [facility] Comment on above: Result Comment: Test ing performed at [place] [address] Performed By: #### WILNER Gold ACBC #### [place] [address] Platelets (Bld) [#/Vol] 94 10*3/uL Low 130-400 [facility] Comment on above: Performed By: #### WILNER Gold ACBC #### [place] [address] RBC (Bld) [#/Vol] 4.23 10*6/uL Normal 4.0-6.1 [facility] Comment on above: Performed By: #### WILNER Gold ACBC #### [place] [address] WBC (Bld) [#/Vol] 2.1 10*3/uL Low 3.6-11.0 [facility] Comment on above: Performed By: #### WILNER Gold ACBC #### [place] [address] CBC, EDIF, PLATELETon 2022 Differential cell count method Nom (Bld) MANUAL DIFF % [facility] Eosinophils/100 WBC (Bld) 5 % 0 - 7.0 % [facility] Erythrocyte distribution width (RBC) [Ratio] 15.9 % High 11.5 - 14.5 % [facility] Hematocrit (Bld) [Volume fraction] 30.0 % Low 42.0 - 52.0 % [facility] Hemoglobin (Bld) [Mass/Vol] 9.8 g/dL Low [facility] Interpretation and review of laboratory results Abnormal [facility] Lymphocytes/100 WBC (Bld) 38 % 20.5 - 51.1 % [facility] MCH (RBC) [Entitic mass] 23.2 pg Low 26.0 - 35.0 PG [facility] MCHC (RBC) [Mass/Vol] 32.6 g/dL [facility] MCV (RBC) [Entitic vol] 71.0 fL Low [facility] Monocytes/100 WBC (Bld) 8 % 1.7 - 10.0 % [facility] Morphology Julián (Bld) [Interp] 1+ [facility] Comment on above: MICROCYTOSIS 1+ POIKILOCYTE Neutrophils/100 WBC (Bld) 49 % 42.2 - 75.2 % [facility] Platelet mean volume (Bld) [Entitic vol] 8.5 fL [facility] Platelet morphology finding Nom (Bld) DECREASED [facility] Comment on above: Testing performed at [place] [address] Platelets (Bld) [#/Vol] 94 10*3/uL Low 130 - 400 10*3/uL [facility] RBC (Bld) [#/Vol] 4.23 10*6/uL 4.0 - 6.1 10*6/uL [facility] WBC (Bld) [#/Vol] 2.1 10*3/uL Low 3.6 - 11.0 10*3/uL [facility] CULTURE WOUNDon 03-20-2023 Bacteria identified Cx Nom (Unsp spec) NORMAL SKIN SOBEIDA PRESENT [facility] Comment on above: MODERATE GROWTH Testing performed at [place] [address] COMMENT RIGHT FOOT [facility] Microscopic observation Gram stain Nom (Unsp spec) FEW [facility] Comment on above: WBC'S SEEN FEW GRAM POSITIVE COCCI FEW SQUAMOUS EPITHELIAL CELLS Service comment (Unsp spec) [Interp] 03/20/2023 [facility] Comment on above: FINAL SPECIMEN DESCRIPTION RIGHT FOOT [facility] Bacteria identified Cx Nom (Unsp spec) STAPHYLOCOCCUS HAEMOLYTICUS [facility] 9+ System Comment on above: MODERATE GROWTH ISOLATE IS A PROBABLE SKIN CONTAMINANT Testing performed at [place] [address] COMMENT RIGHT LOWER LEG [facility] Microscopic observation Gram stain Nom (Unsp spec) NO [facility] Comment on above: WBC'S SEEN FEW SQUAMOUS EPITHELIAL CELLS NO ORGANISMS SEEN ORGANISM IDENTIFIED STAPHYLOCOCCUS HAEMOLYTICUS [facility] Service comment (Unsp spec) [Interp] 03/20/2023 [facility] Comment on above: FINAL SPECIMEN DESCRIPTION RIGHT LEG [facility] MAGNESIUMon 03-20-2023 Magnesium [Mass/Vol] 2.0 mg/dL Normal 1.6-2.3 [facility] Comment on above: Result Comment: Test ing performed at [place] [address] Performed By: #### M WILNER Go ACBC #### [place] [address] Magnesium [Mass/Vol] 2.0 mg/dL [facility] Comment on above: Testing performed at [place] [address] No Panel Informationon 03-20 [facility] RENAL FUNCTION PANELon 03-20 Albumin [Mass/Vol] 2.9 G/dl Low 3.5 - 5.0 G/dl [facility] Calcium [Mass/Vol] 7.3 mg/dL Low [facility] Chloride [Moles/Vol] 98 mmol/L [facility] Comment on above: Please note: Triglyc eride levels of 600mg/dL or higher may positively bias chloride results by approximately 2.1 mmol CO2 [Moles/Vol] 33 mmol/L High [facility] Creatinine [Mass/Vol] 0.70 mg/dL [facility] GFR COMMENT Average GFR for 50-5 9 years old = 93. [facility] Comment on above: Chronic Kidney disea se, GFR = <60. Kidney failure, GFR = <15. The GFR estimate is not adjusted for extreme body surface area or acute process, nor has it been validated for women or ethnic groups other than and . Testing performed at [place] [address] GFR/1.73 sq M.predicted among blacks MDRD (S/P/Bld) [Vol rate/Area] 150 mL/min/{1.73_m2} ml/min/1.73s q.m [facility] GFR/1.73 sq M.predicted among non-blacks MDRD (S/P/Bld) [Vol rate/Area] 124 mL/min/{1.73_m2} ml/min/1.73s q.m [facility] Glucose post fast [Mass/Vol] 120 mg/dL High [facility] Comment on above: NORMAL <100 mg/dL PREDIABETES 101-126 mg/dL DIABETES 126 mg/dL or higher Interpretation and review of laboratory results Abnormal [facility] Phosphate [Mass/Vol] 3.2 mg/dL [facility] Potassium [Moles/Vol] 4.3 mmol/L [facility] Sodium [Moles/Vol] 134 mmol/L Low [facility] Urea nitrogen [Mass/Vol] 26 mg/dL High [facility] RENAL PANEL,FASTINGon 2022 ALBUMIN 2.9 G/dl Low 3.5-5.0 [facility] Comment on above: Performed By: #### WILNER Gold ACBC #### Testing performed at [place] [id number] Calcium [Mass/Vol] 7.3 mg/dL Low 8.4-10.2 [facility] Comment on above: Performed By: #### WILNER Gold ACBC #### Testing performed at [address] [address] Chloride [Moles/Vol] 98 mmol/L Normal 98-107 [facility] Comment on above: Result Comment: Krystian boyd note: Triglyceride levels of 600mg/dL or higher may positively bias chloride results by approximately 2.1 mmol Performed By: #### WILNER Gold ACBC #### Testing performed at [address] [address] CO2 [Moles/Vol] 33 mmol/L High 22-30 [facility] Comment on above: Performed By: #### WILNER Gold ACBC #### Testing performed at [address] [address] Creatinine [Mass/Vol] 0.70 mg/dL Normal 0.7-1.2 [facility] Comment on above: Performed By: #### WILNER Gold ACBC #### [place] [address] EST. GFR, 150 ml/min/1.73sq.m [facility] Comment on above: Performed By: #### WILNER Gold ACBC #### [place] [address] EST. GFR,Non 124 ml/min/1.73sq.m [facility] Comment on above: Performed By: #### WILNER Gold ACBC #### [place] [address] GFR Information Average GFR for 50-5 9 years old = 93. Normal [facility] Comment on above: Result Comment: Rn Postpartum kaveh Kidney disease, GFR = <60. Kidney failure, GFR = <15. The GFR estimate is not adjusted for extreme body surface area or acute process, nor has it been validated for women or ethnic groups other than and . Testing performed at [place] [address] Performed By: #### WILNER Gold ACBC #### [place] [address] Glucose [Mass/Vol] 120 mg/dL High 70-100 [facility] Comment on above: Result Comment: NORMAL <100 mg/dL PREDIABETES 101-126 mg/dL DIABETES 126 mg/dL or higher Performed By: #### WILNER Gold ACBC #### [place] [address] PHOSPHOROUS 3.2 MG/DL Normal 2.5-4.5 [facility] Comment on above: Performed By: #### WILNER Gold ACBC #### [place] [address] Potassium [Moles/Vol] 4.3 mmol/L Normal 3.5-5.1 [facility] Comment on above: Performed By: #### WILNER Gold ACBC #### Testing performed at [facility] [address] [place] [address] Sodium [Moles/Vol] 134 mmol/L Low 137-145 [facility] Comment on above: Performed By: #### WILNER Gold ACBC #### Testing performed at [facility] [address] [place] [address] Urea nitrogen [Mass/Vol] 26 mg/dL High 7-20 [facility] Comment on above: Performed By: #### WILNER Gold ACBC #### [place] [address] WOUND CULTUREon 03-20-2023 WOUND CULTURE SPECIMEN DESCRIPTION RIGHT LEG SPECIAL REQUESTS RIGHT LOWER LEG GRAM SMEAR NO * Result Note: WBC'S SEEN * * Result Note: FEW * * Result Note: SQUAMOUS EPITHELIAL CELLS * * Result Note: NO ORGANISMS SEEN * CULTURE STAPHYLOCOCCUS HAEMOLYTICUS * Result Note: MODERATE GROWTH * * Result Note: ISOLATE IS A PROBABLE SKIN CONTAMINANT * * Result Note: Testing performed at [place] [address] * REPORT STATUS 03/20/2023 * Result Note: FINAL * ORGANISM STAPHYLOCOCCUS HAEMOLYTICUS * Result Note: STAPHYLOCOCCUS HAEMOLYTICUS * METHOD LIV CLINDAMYCIN >=8 RESISTANT ERYTHROMYCIN >=8 RESISTANT GENTAMICIN >=16 RESISTANT PENICILLIN G >=0.5 RESISTANT RIFAMPIN <=0.5 SUSCEPTIBLE TETRACYCLINE >=16 RESISTANT TRIMETH-SULFA >=320 RESISTANT VANCOMYCIN 2 SUSCEPTIBLE LEVOFLOXACIN >=8 RESISTANT OXACILLIN >=4 RESISTANT LINEZOLID 2 SUSCEPTIBLE INDUCIBLE CLINDAMYCIN RESISTANCE NEGATIVE Normal [facility] Comment on above: Performed By: #### TILA Gold RENF, LIVR #### [place] [address] CBCon 03-19-2023 Basophils/100 WBC (Bld) 1 % Normal 0.0-2.0 [facility] Comment on above: Result Comment: WENCESLAO ECTED ON 03/19 AT 0728: PREVIOUSLY REPORTED 0.9 Performed By: #### R ENCathy ACBC, MG #### [place] [address] Eosinophils/100 WBC (Bld) 12 % High 0.0-11.0 [facility] Comment on above: Result Comment: WENCESLAO ECTED ON 03/19 AT 0728: PREVIOUSLY REPORTED 12.2 Performed By: #### R ENF ACBC, MG #### [place] [address] Lymphocytes/100 WBC (Bld) 31 % Normal 20.0-55.0 [facility] Comment on above: Result Comment: WENCESLAO ECTED ON 03/19 AT 0728: PREVIOUSLY REPORTED 31.2 Performed By: #### R ENF ACBC, MG #### [place] [address] Monocytes/100 WBC (Bld) 11 % High 0.0-10.0 [facility] Comment on above: Result Comment: WENCESLAO ECTED ON 03/19 AT 0728: PREVIOUSLY REPORTED 10.9 Performed By: #### R LEIDA SANCHEZBC, MG #### [place] [address] Neutrophils/100 WBC (Bld) 45 % Normal 37.0-75.0 [facility] Comment on above: Result Comment: WENCESLAO ECTED ON 03/19 AT 0728: PREVIOUSLY REPORTED 44.8 Performed By: #### R ENF ACBC, MG #### [place] [address] PLATELET COMMENT DECREASED Normal [facility] Comment on above: Result Comment: Test ing performed at [place] [address] Performed By: #### R ENF ACBC, MG #### [place] [address] RBC morphology finding Nom (Bld) 1+ Normal [facility] Comment on above: Result Comment: MICR OCYTOSIS 1+ HYPOCHROMIA Performed By: #### R ENF ACBC, MG #### [place] [address] ABSOLUTE BAS 0.0 10*3/uL Normal 0.0-0.2 [facility] Comment on above: Result Comment: Test ing performed at [place] [address] Performed By: #### R ENF ACBC, MG #### [place] [address] ABSOLUTE EOS 0.3 10*3/uL Normal 0.0-0.7 [facility] Comment on above: Performed By: #### R ENF ACBC, MG #### [place] [address] ABSOLUTE NEUTROPHIL COUNT 1.2 10*3/uL Low 1.4-6.5 [facility] Comment on above: Performed By: #### R ENCathy ACBC, MG #### [place] [address] DTYPE AUTO DIFF Normal [facility] Comment on above: Performed By: #### R ENF ACBC, MG #### [place] [address] Lymphocytes (Bld) [#/Vol] 0.8 10*3/uL Low 1.2-3.4 [facility] Comment on above: Performed By: #### R ENF ACBC, MG #### [place] [address] Monocytes (Bld) [#/Vol] 0.3 10*3/uL Normal 0.0-0.7 [facility] Comment on above: Performed By: #### R ENF ACBC, MG #### [place] [address] Erythrocyte distribution width (RBC) [Ratio] 16.1 % High 11.5-14.5 [facility] Comment on above: Performed By: #### R ENF ACBC, MG #### [place] [address] Hematocrit (Bld) [Volume fraction] 28.9 % Low 42.0-52.0 [facility] Comment on above: Performed By: #### R ENFLEIDABC, MG #### [place] [address] Hemoglobin (Bld) [Mass/Vol] 9.3 g/dL Low 14.0-18.0 [facility] Comment on above: Performed By: #### R ENF ACBC, MG #### [place] [address] MCH (RBC) [Entitic mass] 23.0 pg Low 26.0-35.0 [facility] Comment on above: Performed By: #### R ENFLEIDABC, MG #### [place] [address] MCHC (RBC) [Mass/Vol] 32.2 g/dL Normal 27.0-37.0 [facility] Comment on above: Performed By: #### R TILA SANCHEZ, MG #### [place] [address] MCV (RBC) [Entitic vol] 71.4 fL Low 80.0-100.0 [facility] Comment on above: Performed By: #### R ENFLEIDABC, MG #### [place] [address] Platelet mean volume (Bld) [Entitic vol] 8.4 fL Normal 7.4-11.0 [facility] Comment on above: Result Comment: Test ing performed at [place] [address] Performed By: #### R ENLEIDA MorganBC, MG #### [place] [address] Platelets (Bld) [#/Vol] 87 10*3/uL Low 130-400 [facility] Comment on above: Performed By: #### R ENF, ACBC, MG #### Testing performed at [address] [address] RBC (Bld) [#/Vol] 4.05 10*6/uL Normal 4.0-6.1 [facility] Comment on above: Performed By: #### R ENF, ACBC, MG #### Testing performed at [place] [id number] WBC (Bld) [#/Vol] 2.6 10*3/uL Low 3.6-11.0 [facility] Comment on above: Performed By: #### R ENF, ACBC, MG #### Testing performed at [place] [id number] CBC, EDIF, PLATELETon 2022 ABSOLUTE BASOPHIL COUNT 0.0 10*3/uL 0.0 - 0.2 10*3/uL [facility] Basophils/100 WBC (Bld) 1 % 0.0 - 2.0 % [facility] Comment on above: CORRECTED ON 03/19 A T 07: PREVIOUSLY REPORTED 0.9 Differential cell count method Nom (Bld) AUTO DIFF % [facility] Eosinophils (Bld) [#/Vol] 0.3 10*3/uL 0.0 - 0.7 10*3/uL [facility] Eosinophils/100 WBC (Bld) 12 % High 0.0 - 11.0 % [facility] Comment on above: CORRECTED ON 03/19 A T 07: PREVIOUSLY REPORTED 12.2 Erythrocyte distribution width (RBC) [Ratio] 16.1 % High 11.5 - 14.5 % [facility] Hematocrit (Bld) [Volume fraction] 28.9 % Low 42.0 - 52.0 % [facility] Hemoglobin (Bld) [Mass/Vol] 9.3 g/dL Low [facility] Interpretation and review of laboratory results Abnormal [facility] Lymphocytes (Bld) [#/Vol] 0.8 10*3/uL Low 1.2 - 3.4 10*3/uL [facility] Lymphocytes/100 WBC (Bld) 31 % 20.0 - 55.0 % [facility] Comment on above: CORRECTED ON 03/19 A T 0728: PREVIOUSLY REPORTED 31.2 MCH (RBC) [Entitic mass] 23.0 pg Low 26.0 - 35.0 PG [facility] MCHC (RBC) [Mass/Vol] 32.2 g/dL [facility] MCV (RBC) [Entitic vol] 71.4 fL Low [facility] Monocytes (Bld) [#/Vol] 0.3 10*3/uL 0.0 - 0.7 10*3/uL [facility] Monocytes/100 WBC (Bld) 11 % High 0.0 - 10.0 % [facility] Comment on above: CORRECTED ON 03/19 A T 07: PREVIOUSLY REPORTED 10.9 Morphology Julián (Bld) [Interp] 1+ [facility] Comment on above: MICROCYTOSIS 1+ HYPOCHROMIA Neutrophils (Bld) [#/Vol] 1.2 10*3/uL Low 1.4 - 6.5 10*3/uL [facility] Neutrophils/100 WBC (Bld) 45 % 37.0 - 75.0 % [facility] Comment on above: CORRECTED ON 03/19 A T 07: PREVIOUSLY REPORTED 44.8 Platelet mean volume (Bld) [Entitic vol] 8.4 fL [facility] Platelet morphology finding Nom (Bld) DECREASED [facility] Comment on above: Testing performed at [place] [address] Platelets (Bld) [#/Vol] 87 10*3/uL Low 130 - 400 10*3/uL [facility] RBC (Bld) [#/Vol] 4.05 10*6/uL 4.0 - 6.1 10*6/uL [facility] WBC (Bld) [#/Vol] 2.6 10*3/uL Low 3.6 - 11.0 10*3/uL [facility] MAGNESIUMon 03-19-2023 Magnesium [Mass/Vol] 1.9 mg/dL Normal 1.6-2.3 [facility] Comment on above: Result Comment: Test ing performed at [place], [place] [address] Performed By: #### R ENF, ACBC, MG #### Testing performed at [place] [id number] Magnesium [Mass/Vol] 1.9 mg/dL [facility] Comment on above: Testing performed at [place], [place] [address] No Panel Informationon 03-19 [facility] RENAL FUNCTION PANELon 03-19 Albumin [Mass/Vol] 2.8 G/dl Low 3.5 - 5.0 G/dl [facility] Calcium [Mass/Vol] 7.4 mg/dL Low [facility] Chloride [Moles/Vol] 99 mmol/L [facility] Comment on above: Please note: Triglyc eride levels of 600mg/dL or higher may positively bias chloride results by approximately 2.1 mmol CO2 [Moles/Vol] 33 mmol/L High [facility] Creatinine [Mass/Vol] 0.70 mg/dL [facility] GFR COMMENT Average GFR for 50-5 9 years old = 93. [facility] Comment on above: Chronic Kidney disea se, GFR = <60. Kidney failure, GFR = <15. The GFR estimate is not adjusted for extreme body surface area or acute process, nor has it been validated for women or ethnic groups other than and . Testing performed at [place], [place] [address] GFR/1.73 sq M.predicted among blacks MDRD (S/P/Bld) [Vol rate/Area] 150 mL/min/{1.73_m2} ml/min/1.73s q.m [facility] GFR/1.73 sq M.predicted among non-blacks MDRD (S/P/Bld) [Vol rate/Area] 124 mL/min/{1.73_m2} ml/min/1.73s q.m [facility] Glucose post fast [Mass/Vol] 103 mg/dL High [facility] Comment on above: NORMAL <100 mg/dL PREDIABETES 101-126 mg/dL DIABETES 126 mg/dL or higher Interpretation and review of laboratory results Abnormal [facility] Phosphate [Mass/Vol] 3.3 mg/dL [facility] Potassium [Moles/Vol] 4.1 mmol/L [facility] Sodium [Moles/Vol] 135 mmol/L Low [facility] Urea nitrogen [Mass/Vol] 25 mg/dL High [facility] RENAL PANEL,FASTINGon 2022 ALBUMIN 2.8 G/dl Low 3.5-5.0 [facility] Comment on above: Performed By: #### R ENF ACBC, MG #### [place] [address] Calcium [Mass/Vol] 7.4 mg/dL Low 8.4-10.2 [facility] Comment on above: Performed By: #### R ENF, ACBC, MG #### [place] [address] Chloride [Moles/Vol] 99 mmol/L Normal 98-107 [facility] Comment on above: Result Comment: Krystian boyd note: Triglyceride levels of 600mg/dL or higher may positively bias chloride results by approximately 2.1 mmol Performed By: #### R ENF ACBC, MG #### [place] [address] CO2 [Moles/Vol] 33 mmol/L High 22-30 [facility] Comment on above: Performed By: #### R ENF ACBC, MG #### [place] [address] Creatinine [Mass/Vol] 0.70 mg/dL Normal 0.7-1.2 [facility] Comment on above: Performed By: #### R ENF ACBC, MG #### Testing performed at [place] [id number] EST. GFR, 150 ml/min/1.73sq.m [facility] Comment on above: Performed By: #### R ENF, ACBC, MG #### [place] [address] EST. GFR,Non 124 ml/min/1.73sq.m [facility] Comment on above: Performed By: #### R ENF, ACBC, MG #### Testing performed at [facility] [address] [place] [address] GFR Information Average GFR for 50-5 9 years old = 93. Normal [facility] Comment on above: Result Comment: Rn Postpartum kaveh Kidney disease, GFR = <60. Kidney failure, GFR = <15. The GFR estimate is not adjusted for extreme body surface area or acute process, nor has it been validated for women or ethnic groups other than and . Testing performed at [place] [address] Performed By: #### R ENLEIDA MorganBC, MG #### [place] [address] Glucose [Mass/Vol] 103 mg/dL High 70-100 [facility] Comment on above: Result Comment: NORMAL <100 mg/dL PREDIABETES 101-126 mg/dL DIABETES 126 mg/dL or higher Performed By: #### R ENLEIDA MorganBC, MG #### [place] [address] PHOSPHOROUS 3.3 MG/DL Normal 2.5-4.5 [facility] Comment on above: Performed By: #### R ENFLEIDABC, MG #### [place] [address] Potassium [Moles/Vol] 4.1 mmol/L Normal 3.5-5.1 [facility] Comment on above: Performed By: #### R ENFLEIDABC, MG #### [place] [address] Sodium [Moles/Vol] 135 mmol/L Low 137-145 [facility] Comment on above: Performed By: #### R ENF ACBC, MG #### [place] [address] Urea nitrogen [Mass/Vol] 25 mg/dL High 7-20 [facility] Comment on above: Performed By: #### R ENF ACBC, MG #### Testing performed at [place] [id number] CBCon 03-18-2023 Basophils/100 WBC (Bld) 1 % Normal 0.0-2.0 [facility] Comment on above: Performed By: #### M G, ACBC, RENF, LIVR #### [place] [address] DTYPE AUTO DIFF Normal [facility] Comment on above: Performed By: #### M G, ACBC, RENF, LIVR #### [place] [address] Eosinophils/100 WBC (Bld) 10 % Normal 0.0-11.0 [facility] Comment on above: Performed By: #### M G, ACBC, RENF, LIVR #### [place] [address] Lymphocytes/100 WBC (Bld) 27 % Normal 20.0-55.0 [facility] Comment on above: Performed By: #### M G, ACBC, RENF, LIVR #### [place] [address] Monocytes/100 WBC (Bld) 10 % Normal 0.0-10.0 [facility] Comment on above: Performed By: #### Micheal Go, ACBC, RENF, LIVR #### [place] [address] Neutrophils/100 WBC (Bld) 52 % Normal 37.0-75.0 [facility] Comment on above: Performed By: #### Micheal G, ACBC, RENF, LIVR #### [place] [address] PLATELET COMMENT DECREASED Normal [facility] Comment on above: Result Comment: Test ing performed at [place] [address] Performed By: #### M G, ACBC, RENF, LIVR #### [place] [address] RBC morphology finding Nom (Bld) 1+ Normal [facility] Comment on above: Result Comment: MICR OCYTOSIS 1+ TARGET CELLS Performed By: #### M G, ACBC, RENF, LIVR #### [place] [address] Erythrocyte distribution width (RBC) [Ratio] 16.4 % High 11.5-14.5 [facility] Comment on above: Performed By: #### TILA Gold RENF, LIVR #### [place] [address] Hematocrit (Bld) [Volume fraction] 30.5 % Low 42.0-52.0 [facility] Comment on above: Performed By: #### Micheal Go, WILNER ADORNO, LIVR #### [place] [address] Hemoglobin (Bld) [Mass/Vol] 9.9 g/dL Low 14.0-18.0 [facility] Comment on above: Performed By: #### Micheal Go, WILNER ADORNO, LIVR #### [place] [address] MCH (RBC) [Entitic mass] 23.0 pg Low 26.0-35.0 [facility] Comment on above: Performed By: #### Micheal Go, WILNER ADORNO, LIVR #### [place] [address] MCHC (RBC) [Mass/Vol] 32.4 g/dL Normal 27.0-37.0 [facility] Comment on above: Performed By: #### Micheal Go, WILNER ADORNO, LIVR #### [place] [address] MCV (RBC) [Entitic vol] 71.1 fL Low 80.0-100.0 [facility] Comment on above: Performed By: #### TILA Gold RENF, LIVR #### [place] [address] Platelet mean volume (Bld) [Entitic vol] 8.3 fL Normal 7.4-11.0 [facility] Comment on above: Result Comment: Test ing performed at [place] [address] Performed By: #### Micheal Go, ACMASOOD, RENF, LIVR #### [place] [address] Platelets (Bld) [#/Vol] 81 10*3/uL Low 130-400 [facility] Comment on above: Performed By: #### Micheal Go, ACBC, RENF, LIVR #### [place] [address] RBC (Bld) [#/Vol] 4.29 10*6/uL Normal 4.0-6.1 [facility] Comment on above: Performed By: #### Micheal Go, TILA, WILNER, LIVR #### [place] [address] WBC (Bld) [#/Vol] 2.5 10*3/uL Low 3.6-11.0 [facility] Comment on above: Performed By: #### Micheal Go, TILA, SANDRAF, LIVR #### [place] [address] CBC, EDIF, PLATELETon 2022 Basophils/100 WBC (Bld) 1 % 0.0 - 2.0 % [facility] Differential cell count method Nom (Bld) AUTO DIFF % [facility] Eosinophils/100 WBC (Bld) 10 % 0.0 - 11.0 % [facility] Erythrocyte distribution width (RBC) [Ratio] 16.4 % High 11.5 - 14.5 % [facility] Hematocrit (Bld) [Volume fraction] 30.5 % Low 42.0 - 52.0 % [facility] Hemoglobin (Bld) [Mass/Vol] 9.9 g/dL Low [facility] Interpretation and review of laboratory results Abnormal [facility] Lymphocytes/100 WBC (Bld) 27 % 20.0 - 55.0 % [facility] MCH (RBC) [Entitic mass] 23.0 pg Low 26.0 - 35.0 PG [facility] MCHC (RBC) [Mass/Vol] 32.4 g/dL [facility] MCV (RBC) [Entitic vol] 71.1 fL Low [facility] Monocytes/100 WBC (Bld) 10 % 0.0 - 10.0 % [facility] Morphology Julián (Bld) [Interp] 1+ [facility] Comment on above: MICROCYTOSIS 1+ TARGET CELLS Neutrophils/100 WBC (Bld) 52 % 37.0 - 75.0 % [facility] Platelet mean volume (Bld) [Entitic vol] 8.3 fL [facility] Platelet morphology finding Nom (Bld) DECREASED [facility] Comment on above: Testing performed at [place] [address] Platelets (Bld) [#/Vol] 81 10*3/uL Low 130 - 400 10*3/uL [facility] RBC (Bld) [#/Vol] 4.29 10*6/uL 4.0 - 6.1 10*6/uL [facility] WBC (Bld) [#/Vol] 2.5 10*3/uL Low 3.6 - 11.0 10*3/uL [facility] MAGNESIUMon 03-18-2023 Magnesium [Mass/Vol] 1.8 mg/dL Normal 1.6-2.3 [facility] Comment on above: Result Comment: Test ing performed at [place] [address] Performed By: #### M Abbi, TILA, WILNER, LIVR #### [place] [address] Magnesium [Mass/Vol] 1.8 mg/dL [facility] Comment on above: Testing performed at [place] [address] No Panel Informationon 03-18 [facility] RENAL FUNCTION PANELon 03-18 Albumin [Mass/Vol] 2.9 G/dl Low 3.5 - 5.0 G/dl [facility] Calcium [Mass/Vol] 7.4 mg/dL Low [facility] Chloride [Moles/Vol] 97 mmol/L Low [facility] Comment on above: Please note: Triglyc eride levels of 600mg/dL or higher may positively bias chloride results by approximately 2.1 mmol CO2 [Moles/Vol] 31 mmol/L High [facility] Creatinine [Mass/Vol] 0.70 mg/dL [facility] GFR COMMENT Average GFR for 50-5 9 years old = 93. [facility] Comment on above: Chronic Kidney disea se, GFR = <60. Kidney failure, GFR = <15. The GFR estimate is not adjusted for extreme body surface area or acute process, nor has it been validated for women or ethnic groups other than and . Testing performed at [place], [place] [address] GFR/1.73 sq M.predicted among blacks MDRD (S/P/Bld) [Vol rate/Area] 150 mL/min/{1.73_m2} ml/min/1.73s q.m [facility] GFR/1.73 sq M.predicted among non-blacks MDRD (S/P/Bld) [Vol rate/Area] 124 mL/min/{1.73_m2} ml/min/1.73s q.m [facility] Glucose post fast [Mass/Vol] 97 mg/dL [facility] Comment on above: NORMAL <100 mg/dL PREDIABETES 101-126 mg/dL DIABETES 126 mg/dL or higher Interpretation and review of laboratory results Abnormal [facility] Phosphate [Mass/Vol] 4.0 mg/dL [facility] Potassium [Moles/Vol] 4.0 mmol/L [facility] Sodium [Moles/Vol] 134 mmol/L Low [facility] Urea nitrogen [Mass/Vol] 22 mg/dL High [facility] RENAL PANEL,FASTINGon 2022 ALBUMIN 2.9 G/dl Low 3.5-5.0 [facility] Comment on above: Performed By: #### Micheal Go, ACBC, RENF, LIVR #### Testing performed at [address] [address] Calcium [Mass/Vol] 7.4 mg/dL Low 8.4-10.2 [facility] Comment on above: Performed By: #### Micheal Go, ACBC, RENF, LIVR #### Testing performed at [address] [address] Chloride [Moles/Vol] 97 mmol/L Low 98-107 [facility] Comment on above: Result Comment: Plea se note: Triglyceride levels of 600mg/dL or higher may positively bias chloride results by approximately 2.1 mmol Performed By: #### Micheal Go, WILNER ADORNO, LIVR #### [place] [address] CO2 [Moles/Vol] 31 mmol/L High 22-30 [facility] Comment on above: Performed By: #### Micheal Go, ITLA, SANDRAF, LIVR #### [place] [address] Creatinine [Mass/Vol] 0.70 mg/dL Normal 0.7-1.2 [facility] Comment on above: Performed By: #### Micheal Go, TILA, WILNER, LIVR #### [place] [address] EST. GFR, 150 ml/min/1.73sq.m [facility] Comment on above: Performed By: #### Micheal Go, TILA, SANDRAF, LIVR #### [place] [address] EST. GFR,Non 124 ml/min/1.73sq.m [facility] Comment on above: Performed By: #### Micheal Go, TILA, RENF, LIVR #### [place] [address] GFR Information Average GFR for 50-5 9 years old = 93. Normal [facility] Comment on above: Result Comment: Rn Postpartum kaveh Kidney disease, GFR = <60. Kidney failure, GFR = <15. The GFR estimate is not adjusted for extreme body surface area or acute process, nor has it been validated for women or ethnic groups other than and . Testing performed at [place] [address] Performed By: #### Micheal Go, TILA, RENF, LIVR #### [place] [address] Glucose [Mass/Vol] 97 mg/dL Normal 70-100 [facility] Comment on above: Result Comment: NORMAL <100 mg/dL PREDIABETES 101-126 mg/dL DIABETES 126 mg/dL or higher Performed By: #### Micheal Go, TILA, WILNER, LIVR #### [place] [address] PHOSPHOROUS 4.0 MG/DL Normal 2.5-4.5 [facility] Comment on above: Performed By: #### Micheal Go, TILA, WILNER, LIVR #### Testing performed at [place] [id number] Potassium [Moles/Vol] 4.0 mmol/L Normal 3.5-5.1 [facility] Comment on above: Performed By: #### Micheal Go, TILA, WILNER, LIVR #### [place] [address] Sodium [Moles/Vol] 134 mmol/L Low 137-145 [facility] Comment on above: Performed By: #### Micheal Go, TILA, WILNER, LIVR #### Testing performed at [place] [id number] Urea nitrogen [Mass/Vol] 22 mg/dL High 7-20 [facility] Comment on above: Performed By: #### Micheal Go, TILA, SANDRAF, LIVR #### Testing performed at [address] [address] BLOOD CULTUREon 03-17-2023 Bacteria identified Cx Nom (Bld) SPECIMEN DESCRIPTION PERIPHERAL BLOOD DRAW SPECIAL REQUESTS LAC CULTURE NO GROWTH 5 DAYS * Result Note: Testing performed at [place] [address] * REPORT STATUS 03/22/2023 * Result Note: FINAL * Normal [facility] Comment on above: Performed By: #### Micheal Go, TILA, RENF, LIVR #### [place] [address] Bacteria identified Cx Nom (Bld) SPECIMEN DESCRIPTION PERIPHERAL BLOOD DRAW SPECIAL REQUESTS LEFT FOREARM CULTURE NO GROWTH 5 DAYS * Result Note: Testing performed at [place] [address] * REPORT STATUS 03/22/2023 * Result Note: FINAL * Normal [facility] Comment on above: Performed By: #### Micheal Go, ACBC, RENF, LIVR #### [place] [address] CBCon 03-17-2023 ABSOLUTE BAS 0.0 10*3/uL Normal 0.0-0.2 [facility] Comment on above: Result Comment: Test ing performed at [place] [address] Performed By: #### Micheal Go, ACBC, RENF, LIVR #### [place] [address] ABSOLUTE EOS 0.2 10*3/uL Normal 0.0-0.7 [facility] Comment on above: Performed By: #### Micheal Go, ACBC, RENF, LIVR #### [place] [address] ABSOLUTE NEUTROPHIL COUNT 1.1 10*3/uL Low 1.4-6.5 [facility] Comment on above: Performed By: #### Micheal Go, ACBC, RENF, LIVR #### [place] [address] Basophils/100 WBC (Bld) 0.8 % Normal 0.0-2.0 [facility] Comment on above: Performed By: #### Micheal Go, ACBC, RENF, LIVR #### [place] [address] DTYPE AUTO DIFF Normal [facility] Comment on above: Performed By: #### Micheal Go, ACBC, RENF, LIVR #### [place] [address] Eosinophils/100 WBC (Bld) 10.6 % Normal 0.0-11.0 [facility] Comment on above: Performed By: #### Micheal Go, ACBC, RENF, LIVR #### [place] [address] Lymphocytes (Bld) [#/Vol] 0.7 10*3/uL Low 1.2-3.4 [facility] Comment on above: Performed By: #### Micheal Go, ACBC, RENF, LIVR #### Testing performed at [address] [address] Lymphocytes/100 WBC (Bld) 31.6 % Normal 20.0-55.0 [facility] Comment on above: Performed By: #### Micheal Go, ACBC, RENF, LIVR #### Testing performed at [place] [id number] Monocytes (Bld) [#/Vol] 0.2 10*3/uL Normal 0.0-0.7 [facility] Comment on above: Performed By: #### Micheal Go, ACBC, RENF, LIVR #### Testing performed at [place] [id number] Monocytes/100 WBC (Bld) 8.8 % Normal 0.0-10.0 [facility] Comment on above: Performed By: #### Micheal Go, ACBC, RENF, LIVR #### Testing performed at [place] [id number] Neutrophils/100 WBC (Bld) 48.2 % Normal 37.0-75.0 [facility] Comment on above: Performed By: #### Micheal Go, ACBC, RENF, LIVR #### Testing performed at [place] [id number] Erythrocyte distribution width (RBC) [Ratio] 16.1 % High 11.5-14.5 [facility] Comment on above: Performed By: #### Micheal Go, ACBC, RENF, LIVR #### Testing performed at [place] [id number] Hematocrit (Bld) [Volume fraction] 31.4 % Low 42.0-52.0 [facility] Comment on above: Performed By: #### Micheal Go, ACBC, RENF, LIVR #### Testing performed at [place] [id number] Hemoglobin (Bld) [Mass/Vol] 10.0 g/dL Low 14.0-18.0 [facility] Comment on above: Performed By: #### Micheal Go, LEIDABC, SANDRAF, LIVR #### [place] [address] MCH (RBC) [Entitic mass] 22.7 pg Low 26.0-35.0 [facility] Comment on above: Performed By: #### Micheal Go, LEIDABC, SANDRAF, LIVR #### [place] [address] MCHC (RBC) [Mass/Vol] 32.0 g/dL Normal 27.0-37.0 [facility] Comment on above: Performed By: #### Micheal Go, TILA, WILNER, LIVR #### [place] [address] MCV (RBC) [Entitic vol] 71.1 fL Low 80.0-100.0 [facility] Comment on above: Performed By: #### Micheal Go, TILA, RENF, LIVR #### [place] [address] Platelet mean volume (Bld) [Entitic vol] 7.7 fL Normal 7.4-11.0 [facility] Comment on above: Result Comment: Test ing performed at [place] [address] Performed By: #### Micheal Go, TILA, SANDRAF, LIVR #### [place] [address] Platelets (Bld) [#/Vol] 91 10*3/uL Low 130-400 [facility] Comment on above: Performed By: #### Micheal Go, LEIDABC, RENF, LIVR #### [place] [address] RBC (Bld) [#/Vol] 4.41 10*6/uL Normal 4.0-6.1 [facility] Comment on above: Performed By: #### Micheal Go, ACBC, RENF, LIVR #### Testing performed at [address] [place] [address] WBC (Bld) [#/Vol] 2.2 10*3/uL Low 3.6-11.0 [facility] Comment on above: Performed By: #### M Abbi, TILA, WILNER, PERI #### Testing performed at [facility] [address] [place] [address] CBC, EDIF, PLATELETon 2022 ABSOLUTE BASOPHIL COUNT 0.0 10*3/uL 0.0 - 0.2 10*3/uL [facility] Comment on above: Testing performed at [place], [place] [address] Basophils/100 WBC (Bld) 0.8 % 0.0 - 2.0 % [facility] Differential cell count method Nom (Bld) AUTO DIFF % [facility] Eosinophils (Bld) [#/Vol] 0.2 10*3/uL 0.0 - 0.7 10*3/uL [facility] Eosinophils/100 WBC (Bld) 10.6 % 0.0 - 11.0 % [facility] Erythrocyte distribution width (RBC) [Ratio] 16.1 % High 11.5 - 14.5 % [facility] Hematocrit (Bld) [Volume fraction] 31.4 % Low 42.0 - 52.0 % [facility] Hemoglobin (Bld) [Mass/Vol] 10.0 g/dL Low [facility] Interpretation and review of laboratory results Abnormal [facility] Lymphocytes (Bld) [#/Vol] 0.7 10*3/uL Low 1.2 - 3.4 10*3/uL [facility] Lymphocytes/100 WBC (Bld) 31.6 % 20.0 - 55.0 % [facility] MCH (RBC) [Entitic mass] 22.7 pg Low 26.0 - 35.0 PG [facility] MCHC (RBC) [Mass/Vol] 32.0 g/dL [facility] MCV (RBC) [Entitic vol] 71.1 fL Low [facility] Monocytes (Bld) [#/Vol] 0.2 10*3/uL 0.0 - 0.7 10*3/uL [facility] Monocytes/100 WBC (Bld) 8.8 % 0.0 - 10.0 % [facility] Neutrophils (Bld) [#/Vol] 1.1 10*3/uL Low 1.4 - 6.5 10*3/uL [facility] Neutrophils/100 WBC (Bld) 48.2 % 37.0 - 75.0 % [facility] Platelet mean volume (Bld) [Entitic vol] 7.7 fL [facility] Platelets (Bld) [#/Vol] 91 10*3/uL Low 130 - 400 10*3/uL [facility] RBC (Bld) [#/Vol] 4.41 10*6/uL 4.0 - 6.1 10*6/uL [facility] WBC (Bld) [#/Vol] 2.2 10*3/uL Low 3.6 - 11.0 10*3/uL [facility] MAGNESIUMon 03-17-2023 Magnesium [Mass/Vol] 1.7 mg/dL Normal 1.6-2.3 [facility] Comment on above: Result Comment: Test ing performed at [place] [address] Performed By: #### TILA Gold RENF, LIVR #### [place] [address] Magnesium [Mass/Vol] 1.7 mg/dL [facility] Comment on above: Testing performed at [place] [address] MRSA SCREENon 03-17-2023 MRSA DNA HERMAN+probe Ql (Unsp spec) Negative Normal NEGATIVE [facility] Comment on above: Performed By: #### TILA Gold RENF, LIVR #### [place] [address] STAPH AUREUS SCREEN Negative Normal NEGATIVE [facility] Comment on above: Result Comment: TEST ING PERFORMED BY PCR Testing performed at [place] [address] Performed By: #### TILA Gold RENF, LIVR #### [place] [address] No Panel Informationon 03-17 [facility] PROCALCITONINon 03-17-2023 PROCALCITONIN 0.06 ng/mL Normal 0.00-0.25 [facility] Comment on above: Result Comment: PCT Interpretation Less than 0.10 ng/mL, antibiotic therapy strongly discouraged. 0.10-0.25 ng/mL, antibiotic therapy discouraged. 0.25-0.50 ng/mL, antibiotic therapy encouraged. Greater than 0.50 ng/mL, antibiotic therapy strongly encouraged. Testing performed at [place] [address] Performed By: #### TILA Gold RENF, LIVR #### [place] [address] PROCALCITONIN 0.06 ng/mL 0.00 - 0.25 ng/mL [facility] Comment on above: PCT Interpretation Less than 0.10 ng/mL, antibiotic therapy strongly discouraged. 0.10-0.25 ng/mL, antibiotic therapy discouraged. 0.25-0.50 ng/mL, antibiotic therapy encouraged. Greater than 0.50 ng/mL, antibiotic therapy strongly encouraged. Testing performed at [address] PROTIMEon 03-17-2023 INR Coag (PPP) [Relative time] 1.27 {INR} High 0.85-1.10 [facility] Comment on above: Result Comment: 2.0-3.0 THERAPEUTIC RANGE 2.5-3.5 MECHANICAL VALVE RANGE Testing performed at [place] [address] Performed By: #### TILA Gold RENF, LIVR #### [place] [address] PT Coag (PPP) [Time] 16.0 s High 11.8-14.4 [facility] Comment on above: Performed By: #### TILA Gold RENF, LIVR #### [place] [address] PROTIME-INRon 03-17-2023 INR Coag (PPP) [Relative time] 1.27 {INR} High 0.85 - 1.10 [facility] Comment on above: 2.0-3.0 THERAPEUTIC RANGE 2.5-3.5 MECHANICAL VALVE RANGE Testing performed at [place] [address] Interpretation and review of laboratory results Abnormal [facility] PT Coag (PPP) [Time] 16.0 s [facility] RAPID TOX SCREEN,URINEon AMPHETAMINE Negative Normal NEGATIVE [facility] Comment on above: Result Comment: <500 ng/ml CUTOFF Performed By: #### M G, ACBC, RENF, LIVR #### [place] [address] BARBITURATES Negative Normal NEGATIVE [facility] Comment on above: Result Comment: <200 ng/ml CUTOFF Performed By: #### M G, ACBC, RENF, LIVR #### [place] [address] BENZODIAZEPINES Positive Abnormal NEGATIVE [facility] Comment on above: Result Comment: <150 ng/ml CUTOFF *Unconfirmed Screening Result* Unconfirmed screening results are to be used only for medical treatment purposes. Performed By: #### M G, ACBC, RENF, LIVR #### [place] [address] BUPRENORPHINE Positive Abnormal NEGATIVE [facility] Comment on above: Result Comment: <10 ng/ml CUTOFF *Unconfirmed Screening Result* Unconfirmed screening results are to be used only for medical treatment purposes. Performed By: #### M G, ACBC, RENF, LIVR #### [place] [address] CANNABINOIDS Negative Normal NEGATIVE [facility] Comment on above: Result Comment: <50 ng/ml CUTOFF Performed By: #### M G, ACBC, RENF, LIVR #### [place] [address] COCAINE Positive Abnormal NEGATIVE [facility] Comment on above: Result Comment: <150 ng/ml CUTOFF *Unconfirmed Screening Result* Unconfirmed screening results are to be used only for medical treatment purposes. Performed By: #### M G, ACBC, RENF, LIVR #### [place] [address] FENTANYL Negative Normal NEGATIVE [facility] Comment on above: Result Comment: 20 n g/mL CUTOFF *Unconfirmed Screening Result* Unconfirmed screening results are to be used only for medical treatment purposes. This test has not been approved by the FDA. Testing performed at [place] [address] Performed By: #### M G, ACBC, RENF, LIVR #### [place] [address] METHADONE Negative Normal NEGATIVE [facility] Comment on above: Result Comment: <200 ng/ml CUTOFF Performed By: #### M G, ACBC, RENF, LIVR #### [place] [address] METHAMPHETAMINE Negative Normal NEGATIVE [facility] Comment on above: Result Comment: <500 ng/ml CUTOFF Performed By: #### M G, ACBC, RENF, LIVR #### [place] [address] OPIATES Negative Normal NEGATIVE [facility] Comment on above: Result Comment: <100 ng/ml CUTOFF Performed By: #### M G, ACBC, RENF, LIVR #### [place] [address] OXYCODONE Negative Normal NEGATIVE [facility] Comment on above: Result Comment: <100 ng/ml CUTOFF Performed By: #### M G, ACBC, RENF, LIVR #### [place] [address] PHENCYCLIDINE Negative Normal NEGATIVE [facility] Comment on above: Result Comment: <25 ng/ml CUTOFF Performed By: #### M G, ACBC, RENF, LIVR #### [place] [address] PROPOXYPHENE Negative Normal NEGATIVE [facility] Comment on above: Result Comment: <300 ng/ml CUTOFF Performed By: #### M G, ACBC, RENF, LIVR #### Testing performed at [address] [place] [address] TRICYCLIC ANTIDEPRESSANTS Negative Normal NEGATIVE [facility] Comment on above: Result Comment: <300 ng/ml CUTOFF Performed By: #### M Abbi, TILA, WILNER, ELIDAR #### Testing performed at [facility] [address] [place] [address] RENAL FUNCTION PANELon 03-17 Albumin [Mass/Vol] 3.0 G/dl Low 3.5 - 5.0 G/dl [facility] Calcium [Mass/Vol] 7.9 mg/dL Low [facility] Chloride [Moles/Vol] 96 mmol/L Low [facility] Comment on above: Please note: Triglyc eride levels of 600mg/dL or higher may positively bias chloride results by approximately 2.1 mmol CO2 [Moles/Vol] 32 mmol/L High [facility] Creatinine [Mass/Vol] 0.50 mg/dL Low [facility] GFR COMMENT Average GFR for 50-5 9 years old = 93. [facility] Comment on above: Chronic Kidney disea se, GFR = <60. Kidney failure, GFR = <15. The GFR estimate is not adjusted for extreme body surface area or acute process, nor has it been validated for women or ethnic groups other than and . Testing performed at [place], [place] [address] GFR/1.73 sq M.predicted among blacks MDRD (S/P/Bld) [Vol rate/Area] 221 mL/min/{1.73_m2} ml/min/1.73s q.m [facility] GFR/1.73 sq M.predicted among non-blacks MDRD (S/P/Bld) [Vol rate/Area] 183 mL/min/{1.73_m2} ml/min/1.73s q.m [facility] Glucose post fast [Mass/Vol] 90 mg/dL [facility] Comment on above: NORMAL <100 mg/dL PREDIABETES 101-126 mg/dL DIABETES 126 mg/dL or higher Interpretation and review of laboratory results Abnormal [facility] Phosphate [Mass/Vol] 4.4 mg/dL [facility] Potassium [Moles/Vol] 3.6 mmol/L [facility] Sodium [Moles/Vol] 133 mmol/L Low [facility] Urea nitrogen [Mass/Vol] 16 mg/dL [facility] RENAL PANEL,FASTINGon 2022 ALBUMIN 3.0 G/dl Low 3.5-5.0 [facility] Comment on above: Performed By: #### Micheal Go, ACMASOOD, RENF, LIVR #### Testing performed at [address] [address] Calcium [Mass/Vol] 7.9 mg/dL Low 8.4-10.2 [facility] Comment on above: Performed By: #### Micheal Go, ACMASOOD, RENF, LIVR #### Testing performed at [place] [id number] Chloride [Moles/Vol] 96 mmol/L Low 98-107 [facility] Comment on above: Result Comment: Krystian boyd note: Triglyceride levels of 600mg/dL or higher may positively bias chloride results by approximately 2.1 mmol Performed By: #### TILA Gold, RENF, LIVR #### Testing performed at [address] [address] CO2 [Moles/Vol] 32 mmol/L High 22-30 [facility] Comment on above: Performed By: #### Micheal Go, TILA, RENF, LIVR #### Testing performed at [address] [address] Creatinine [Mass/Vol] 0.50 mg/dL Low 0.7-1.2 [facility] Comment on above: Performed By: #### Micheal Go, ACBC, RENF, LIVR #### Testing performed at [address] [address] EST. GFR, 221 ml/min/1.73sq.m [facility] Comment on above: Performed By: #### Micheal Go, ACBC, RENF, LIVR #### Testing performed at [address] [address] EST. GFR,Non 183 ml/min/1.73sq.m [facility] Comment on above: Performed By: #### M G, ACBC, RENF, LIVR #### [place] [address] GFR Information Average GFR for 50-5 9 years old = 93. Normal [facility] Comment on above: Result Comment: Rn Postpartum kaveh Kidney disease, GFR = <60. Kidney failure, GFR = <15. The GFR estimate is not adjusted for extreme body surface area or acute process, nor has it been validated for women or ethnic groups other than and . Testing performed at [place] [address] Performed By: #### Micheal Go, ACMASOOD, RENF, LIVR #### [place] [address] Glucose [Mass/Vol] 90 mg/dL Normal 70-100 [facility] Comment on above: Result Comment: NORMAL <100 mg/dL PREDIABETES 101-126 mg/dL DIABETES 126 mg/dL or higher Performed By: #### Micheal Go, LEIDABC, RENF, LIVR #### [place] [address] PHOSPHOROUS 4.4 MG/DL Normal 2.5-4.5 [facility] Comment on above: Performed By: #### Micheal Go, LEIDABC, RENF, LIVR #### [place] [address] Potassium [Moles/Vol] 3.6 mmol/L Normal 3.5-5.1 [facility] Comment on above: Performed By: #### Micheal Go, ACBC, RENF, LIVR #### [place] [address] Sodium [Moles/Vol] 133 mmol/L Low 137-145 [facility] Comment on above: Performed By: #### Micheal Go, ACBC, RENF, LIVR #### [place] [address] Urea nitrogen [Mass/Vol] 16 mg/dL Normal 7-20 [facility] Comment on above: Performed By: #### M G, ACBC, RENF, LIVR #### [place] [address] SCREEN: MRSA ONLY, NARES (IS OLATION SCREEN)on 03-17-2023 MRSA isol Org specific cx Ql (Nose) Negative NEGATIVE [facility] STAPHYOCOCCUS AUREUS BY PCR Negative NEGATIVE [facility] Comment on above: TESTING PERFORMED BY PCR Testing performed at [address] TOXICOLOGY DRUG SCREEN, URIN Jonathan 03-17-2023 Amphetamine (U) [Mass/Vol] Negative NEGATIVE NG/ML [facility] Comment on above: <500 ng/ml CUTOFF Barbiturates Screen Ql (U) Negative NEGATIVE NG/ML [facility] Comment on above: <200 ng/ml CUTOFF Benzodiazepines Ql (U) Positive Abnormal NEGATIVE NG/ML [facility] Comment on above: <150 ng/ml CUTOFF *Unconfirmed Screening Result* Unconfirmed screening results are to be used only for medical treatment purposes. Benzoylecgonine Ql (U) Positive Abnormal NEGATIVE NG/ML [facility] Comment on above: <150 ng/ml CUTOFF *Unconfirmed Screening Result* Unconfirmed screening results are to be used only for medical treatment purposes. Buprenorphine Ql (U) Positive Abnormal NEGATIV E NG/ML [facility] Comment on above: <10 ng/ml CUTOFF *Unconfirmed Screening Result* Unconfirmed screening results are to be used only for medical treatment purposes. Cannabinoids Screen Ql (U) Negative NEGATIVE NG/ML [facility] Comment on above: <50 ng/ml CUTOFF Fentanyl Negative NEGATIVE NG/ML [facility] Comment on above: 20 ng/mL CUTOFF *Unconfirmed Screening Result* Unconfirmed screening results are to be used only for medical treatment purposes. This test has not been approved by the FDA. Testing performed at [place] [address] Interpretation and review of laboratory results Abnormal [facility] Methadone Screen Ql (U) Negative NEGATIVE NG/ML [facility] Comment on above: <200 ng/ml CUTOFF Methamphetamine (U) [Mass/Vol] Negative NEGATIVE NG/ML [facility] Comment on above: <500 ng/ml CUTOFF Opiates Screen Ql (U) Negative NEGATIVE NG/ML [facility] Comment on above: <100 ng/ml CUTOFF oxyCODONE Ql (U) Negative NEGATIVE NG/ML [facility] Comment on above: <100 ng/ml CUTOFF Phencyclidine Screen method >25 ng/mL Ql (U) Negative NEGATIVE NG/ML [facility] Comment on above: <25 ng/ml CUTOFF Propoxyphene+Norprop oxyphene Screen Ql (U) Negative NEGATIVE NG/ML [facility] Comment on above: <300 ng/ml CUTOFF Tricyclic antidepressants Screen Ql (U) Negative NEGATIVE NG/ML [facility] Comment on above: <300 ng/ml CUTOFF [facility] WOUND CULTUREon 03-17-2023 WOUND CULTURE SPECIMEN DESCRIPTION RIGHT FOOT SPECIAL REQUESTS RIGHT FOOT GRAM SMEAR FEW * Result Note: WBC'S SEEN * * Result Note: FEW * * Result Note: GRAM POSITIVE COCCI * * Result Note: FEW * * Result Note: SQUAMOUS EPITHELIAL CELLS * CULTURE NORMAL SKIN SOBEIDA PRESENT * Result Note: MODERATE GROWTH * * Result Note: Testing performed at [place] [address] * REPORT STATUS 03/20/2023 * Result Note: FINAL * Normal [facility] Comment on above: Performed By: #### M G, ACBC, RENF, LIVR #### [place] [address] B-TYPE NATRIURETIC PEPTIDE ( BRAIN)on 03-16-2023 Natriuretic peptide B (Bld) [Mass/Vol] 27 pg/mL 0 - 100 pg/mL [facility] C REACTIVE PROTEINon 023 CRP [Mass/Vol] 5.5 mg/L 0 - 10 MG/L [facility] CBC, EDIF, PLATELETon 2022 ABSOLUTE BASOPHIL COUNT 0.0 10*3/uL 0.0 - 0.2 10*3/uL [facility] Basophils/100 WBC (Bld) 0.4 % 0.0 - 2.0 % [facility] Differential cell count method Nom (Bld) AUTO DIFF % [facility] Eosinophils (Bld) [#/Vol] 0.3 10*3/uL 0.0 - 0.7 10*3/uL [facility] Eosinophils/100 WBC (Bld) 9.0 % 0.0 - 11.0 % [facility] Erythrocyte distribution width (RBC) [Ratio] 15.9 % High 11.5 - 14.5 % [facility] Hematocrit (Bld) [Volume fraction] 33.6 % Low 42.0 - 52.0 % [facility] Hemoglobin (Bld) [Mass/Vol] 10.5 g/dL Low [facility] Interpretation and review of laboratory results Abnormal [facility] Lymphocytes (Bld) [#/Vol] 0.6 10*3/uL Low 1.2 - 3.4 10*3/uL [facility] Lymphocytes/100 WBC (Bld) 16.9 % Low 20.0 - 55.0 % [facility] MCH (RBC) [Entitic mass] 22.4 pg Low 26.0 - 35.0 PG [facility] MCHC (RBC) [Mass/Vol] 31.3 g/dL [facility] MCV (RBC) [Entitic vol] 71.7 fL Low [facility] Monocytes (Bld) [#/Vol] 0.4 10*3/uL 0.0 - 0.7 10*3/uL [facility] Monocytes/100 WBC (Bld) 9.6 % 0.0 - 10.0 % [facility] Neutrophils (Bld) [#/Vol] 2.3 10*3/uL 1.4 - 6.5 10*3/uL [facility] Neutrophils/100 WBC (Bld) 64.1 % 37.0 - 75.0 % [facility] Platelet mean volume (Bld) [Entitic vol] 7.7 fL [facility] Platelets (Bld) [#/Vol] 106 10*3/uL Low 130 - 400 10*3/uL [facility] RBC (Bld) [#/Vol] 4.68 10*6/uL 4.0 - 6.1 10*6/uL [facility] WBC (Bld) [#/Vol] 3.6 10*3/uL 3.6 - 11.0 10*3/uL [facility] CKon 03-16-2023 CK [Catalytic activity/Vol] Low [facility] Interpretation and review of laboratory results Abnormal [facility] COMPREHENSIVE METABOLIC PANE Ras 03-16-2023 Albumin [Mass/Vol] 3.6 G/dl 3.5 - 5.0 G/dl [facility] Albumin/Globulin [Mass ratio] 0.8 {ratio} RATIO [facility] ALP [Catalytic activity/Vol] 53 U/L [facility] ALT [Catalytic activity/Vol] 21 U/L NINF [facility] AST [Catalytic activity/Vol] 38 U/L [facility] Bilirubin [Mass/Vol] 1.6 mg/dL High [facility] Calcium [Mass/Vol] 8.3 mg/dL Low [facility] Chloride [Moles/Vol] 96 mmol/L Low [facility] Comment on above: Please note: Triglyc eride levels of 600mg/dL or higher may positively bias chloride results by approximately 2.1 mmol CO2 [Moles/Vol] 33 mmol/L High [facility] Creatinine [Mass/Vol] 0.59 mg/dL Low [facility] GFR COMMENT Average GFR for 50-5 9 years old = 93. [facility] Comment on above: Chronic Kidney disea se, GFR = <60. Kidney failure, GFR = <15. The GFR estimate is not adjusted for extreme body surface area or acute process, nor has it been validated for women or ethnic groups other than and . GFR/1.73 sq M.predicted among blacks MDRD (S/P/Bld) [Vol rate/Area] 183 mL/min/{1.73_m2} ml/min/1.73s q.m [facility] GFR/1.73 sq M.predicted among non-blacks MDRD (S/P/Bld) [Vol rate/Area] 151 mL/min/{1.73_m2} ml/min/1.73s q.m [facility] Glucose post fast [Mass/Vol] 116 mg/dL High [facility] Comment on above: NORMAL <100 mg/dL PREDIABETES 101-126 mg/dL DIABETES 126 mg/dL or higher Interpretation and review of laboratory results Abnormal [facility] Potassium [Moles/Vol] 3.5 mmol/L [facility] Protein [Mass/Vol] 8.1 g/dL [facility] Sodium [Moles/Vol] 137 mmol/L [facility] Urea nitrogen [Mass/Vol] 15 mg/dL [facility] LACTATE, BLOODon 03-16-2023 Lactate [Moles/Vol] 1.7 mmol/L 0.7 - 2. 0 mmol/L [facility] No Panel Informationon 03-16 [facility] [employer] Portable XR Chest Views APon 03-16-2023 IMPRESSION: No acute findings. RADIOLOGY EXAM: XR CHEST AP PO RTABLE HISTORY: chf COMPARISON: 11/12/2021 TECHNIQUE: Single view of the chest FINDINGS: Heart size normal. No focal consolidation, pleural effusion, pulmonary congestion or pneumothorax. Right mandible fixation hardware. Surgical clips projecting on the left supra clavicular soft tissue. RADIOLOGY Jerry Zimmerman MD - 03/16/2023 EXAM: XR CHEST AP PORTABLE HISTORY: chf COMPARISON: 11/12/2021 TECHNIQUE: Single view of the chest FINDINGS: Heart size normal. No focal consolidation, pleural effusion, pulmonary congestion or pneumothorax. Right mandible fixation hardware. Surgical clips projecting on the left supra clavicular soft tissue. IMPRESSION IMPRESSION: No acute findings. [facility] Rad[facility] Study observation (narrative) [facility] Portable XR Chest Views APOr dered By: Jerry Zimmerman on 03-16-2023 [employer] Work Phone: SEDIMENTATION RATE, AUTOMATE Don 03-16-2023 ESR (Bld) [Velocity] 65 mm/h High [employer] Interpretation and review of laboratory results Abnormal [facility] TROPONIN I, HIGH SENSITIVITY on 03-16-2023 TROPONIN I, HIGH SENSITIVITY 2 pg/mL 0 - 20 pg/mL [facility] Comment on above: Indeterminant: >12 to 100 pg/mL female >20 to 100 pg/mL male Indicative of myocardial injury. Serial sampling is recommended, a change of greater than or equal to 20 pg/mL is indicative of acute coronary syndrome. [employer] [facility] US.doppler Extremity vessels - bilateralon 03-16-2023 IMPRESSION: No visualized venous thrombus. Right inguinal lymph node. RADIOLOGY EXAMINATION: US DUPL EX EXTREMITY DVT BILATERAL HISTORY: Bilateral lower extremity edema COMPARISON: Venous duplex 02/28/2023 TECHNIQUE: Venous duplex examination performed using B-mode, color flow and spectral analysis. FINDINGS: Right: The lower extremity venous system exhibits normal flow, phasicity, augmentation, compressibility and waveforms. The posterior tibial and peroneal veins were not visualized. Left: The distal femoral vein was not visualized on this study. Neither was the popliteal or peroneal veins. The remainder of the visualized venous system exhibits normal flow, phasicity, augmentation, compressibility and waveforms. 4.3 x 4.2 x 1.3 cm lymph node within the right renal region. RADIOLOGY Paulino Marcos, DO - 03/16/2023 EXAMINATION: US DUPLEX EXTREMITY DVT BILATERAL HISTORY: Bilateral lower extremity edema COMPARISON: Venous duplex 02/28/2023 TECHNIQUE: Venous duplex examination performed using B-mode, color flow and spectral analysis. FINDINGS: Right: The lower extremity venous system exhibits normal flow, phasicity, augmentation, compressibility and waveforms. The posterior tibial and peroneal veins were not visualized. Left: The distal femoral vein was not visualized on this study. Neither was the popliteal or peroneal veins. The remainder of the visualized venous system exhibits normal flow, phasicity, augmentation, compressibility and waveforms. 4.3 x 4.2 x 1.3 cm lymph node within the right renal region. IMPRESSION IMPRESSION: No visualized venous thrombus. Right inguinal lymph node. [facility] Radiology Study observation (narrative) [facility] 9+ [facility] US.doppler Extremity vessels - bilateralOrdered By: Paulino Marcos on 03-16-2023 [facility] Work Phone: WOUND CULTUREon 03-14-2023 WOUND CULTURE SPECIMEN DESCRIPTION LEFT LEG GRAM SMEAR FEW * Result Note: WBC'S SEEN * * Result Note: FEW * * Result Note: GRAM POSITIVE COCCI * CULTURE ENTEROCOCCUS FAECALIS GROUP D * Result Note: HEAVY GROWTH * * Result Note: Testing performed at [place], [place] [address] * REPORT STATUS 03/14/2023 * Result Note: FINAL * ORGANISM ENTEROCOCCUS FAECALIS GROUP D * Result Note: ENTEROCOCCUS FAECALIS GROUP D * METHOD LIV AMPICILLIN <=2 SUSCEPTIBLE PENICILLIN G 2 SUSCEPTIBLE VANCOMYCIN 1 SUSCEPTIBLE GENTAMICIN HIGH LEVEL RESISTANT STREPTOMYCIN HIGH LEVEL SUSCEPTIBLE Normal [facility] Comment on above: Performed By: #### M G, ACBC, RENF, LIVR #### Testing performed at [facility] [address] [place] [address] SOLUBLE TRANSFERRIN RECEPTOR on 03-05-2023 SOLUBLE TRANSFERRIN RECEPTOR 27.4 High [facility] Comment on above: Result Comment: Refe rence range: 12.2 to 27.3 Unit: nmol/L PERFORMED AT [facility] Performed By: #### L STR #### Testing performed at [facility] C REACTIVE PROTEINon 023 CRP [Mass/Vol] 5.9 mg/L Normal 0-10 [facility] CBCon 03-03-2023 ABSOLUTE BAS 0.0 10*3/uL Normal 0.0-0.2 [facility] ABSOLUTE EOS 0.1 10*3/uL Normal 0.0-0.7 [facility] ABSOLUTE NEUTROPHIL COUNT 1.9 10*3/uL Normal 1.4-6.5 [facility] Basophils/100 WBC (Bld) 0.6 % Normal 0.0-2.0 [facility] DTYPE AUTO DIFF Normal [facility] Eosinophils/100 WBC (Bld) 3.9 % Normal 0.0-11.0 [facility] Lymphocytes (Bld) [#/Vol] 0.6 10*3/uL Low 1.2-3.4 [facility] Lymphocytes/100 WBC (Bld) 21.3 % Normal 20.0-55.0 [facility] Monocytes (Bld) [#/Vol] 0.2 10*3/uL Normal 0.0-0.7 [facility] Monocytes/100 WBC (Bld) 8.2 % Normal 0.0-10.0 [facility] Neutrophils/100 WBC (Bld) 66.0 % Normal 37.0-75.0 [facility] Erythrocyte distribution width (RBC) [Ratio] 16.4 % High 11.5-14.5 [facility] Hematocrit (Bld) [Volume fraction] 29.1 % Low 42.0-52.0 [facility] Hemoglobin (Bld) [Mass/Vol] 9.3 g/dL Low 14.0-18.0 [facility] MCH (RBC) [Entitic mass] 23.1 pg Low 26.0-35.0 [facility] MCHC (RBC) [Mass/Vol] 32.1 g/dL Normal 27.0-37.0 [facility] MCV (RBC) [Entitic vol] 72.1 fL Low 80.0-100.0 [facility] Platelet mean volume (Bld) [Entitic vol] 7.4 fL Normal 7.4-11.0 [facility] Platelets (Bld) [#/Vol] 96 10*3/uL Low 130-400 [facility] RBC (Bld) [#/Vol] 4.03 10*6/uL Normal 4.0-6.1 [facility] WBC (Bld) [#/Vol] 2.8 10*3/uL Low 3.6-11.0 [facility] ESRon 03-03-2023 ESR (Bld) [Velocity] 31 mm/h High 0-20 [facility] MAGNESIUMon 03-03-2023 Magnesium [Mass/Vol] 1.9 mg/dL Normal 1.6-2.3 [facility] RENAL PANEL,FASTINGon 2022 ALBUMIN 2.9 G/dl Low 3.5-5.0 [facility] Calcium [Mass/Vol] 8.0 mg/dL Low 8.4-10.2 [facility] Chloride [Moles/Vol] 113 mmol/L High 98-107 [facility] Comment on above: Result Comment: Krystian boyd note: Triglyceride levels of 600mg/dL or higher may positively bias chloride results by approximately 2.1 mmol CO2 [Moles/Vol] 25 mmol/L Normal 22-30 [facility] Creatinine [Mass/Vol] 0.50 mg/dL Low 0.7-1.2 [facility] EST. GFR, 221 ml/min/1.73sq.m Normal [facility] EST. GFR,Non 183 ml/min/1.73sq.m Normal [facility] GFR Information Average GFR for 50-5 9 years old = 93. Normal [facility] Comment on above: Result Comment: Rn Postpartum kaveh Kidney disease, GFR = <60. Kidney failure, GFR = <15. The GFR estimate is not adjusted for extreme body surface area or acute process, nor has it been validated for women or ethnic groups other than and . Glucose [Mass/Vol] 93 mg/dL Normal 70-100 [facility] Comment on above: Result Comment: NORMAL <100 mg/dL PREDIABETES 101-126 mg/dL DIABETES 126 mg/dL or higher PHOSPHOROUS 3.2 MG/DL Normal 2.5-4.5 [facility] Potassium [Moles/Vol] 4.3 mmol/L Normal 3.5-5.1 [facility] Sodium [Moles/Vol] 136 mmol/L Low 137-145 [facility] Urea nitrogen [Mass/Vol] 16 mg/dL Normal 7-20 [facility] VANCOMYCIN TROUGHon 03-03-20 23 VANCOMYCIN TROUGH 15.2 UG/ML Normal 15-20 [facility] WOUND CULTUREon 03-03-2023 WOUND CULTURE SPECIMEN DESCRIPTION WOUND GRAM SMEAR FEW * Result Note: WBC'S SEEN * * Result Note: FEW * * Result Note: SQUAMOUS EPITHELIAL CELLS * * Result Note: NO ORGANISMS SEEN * CULTURE STAPHYLOCOCCUS AUREUS * Result Note: LIGHT GROWTH * * Result Note: THIS STAPH AUREUS IS METHICILLIN SUSCEPTIBLE (MSSA) BY PBP2a TESTING. * * Result Note: BACILLUS SPECIES NOT ANTHRACIS * * Result Note: RECOVERED FROM THIOGLYCOLLATE BROTH * * Result Note: Testing performed at [place], [place] [address] * REPORT STATUS 03/03/2023 * Result Note: FINAL * ORGANISM STAPHYLOCOCCUS AUREUS * Result Note: STAPHYLOCOCCUS AUREUS * METHOD LIV OXACILLIN 0.5 SUSCEPTIBLE CLINDAMYCIN <=0.25 SUSCEPTIBLE ERYTHROMYCIN >=8 RESISTANT TETRACYCLINE <=1 SUSCEPTIBLE VANCOMYCIN <=0.5 SUSCEPTIBLE RIFAMPIN <=0.5 SUSCEPTIBLE PENICILLIN G >=0.5 RESISTANT GENTAMICIN <=0.5 SUSCEPTIBLE LEVOFLOXACIN 0.25 SUSCEPTIBLE INDUCIBLE CLINDAMYCIN RESISTANCE NEGATIVE LINEZOLID 2 SUSCEPTIBLE TRIMETH-SULFA <=10 SUSCEPTIBLE Normal [facility] Comment on above: Performed By: #### W DC ####Testing performed at [address] [address]Urwkput performed at [address] [address] B12 FOLATEon 03-02-2023 Cobalamin (Vitamin B12) [Mass/Vol] 327 pg/mL Normal 239-931 [facility] Comment on above: Performed By: #### A CBC, FEPRO ####Testing performed at [address] [address] FOLATE 6.7 NG/ML Normal 2.56-20.0 [facility] Comment on above: Performed By: #### A CBC, FEPRO ####Testing performed at [address] [address] C REACTIVE PROTEINon 023 CRP [Mass/Vol] 8.5 mg/L Normal 0-10 [facility] Comment on above: Performed By: #### A CBC, FEPRO #### Testing performed at [address] [address] CBCon 03-02-2023 DTYPE MANUAL DIFF Normal [facility] Comment on above: Performed By: #### A CBC, FEPRO #### Testing performed at [address] [address] Eosinophils/100 WBC (Bld) 2 % Normal 0.0-11.0 [facility] Comment on above: Performed By: #### A CBC, FEPRO #### Testing performed at [address] [address] Lymphocytes/100 WBC (Bld) 26 % Normal 20.0-55.0 [facility] Comment on above: Performed By: #### A CBC, FEPRO #### Testing performed at [address] [address] Monocytes/100 WBC (Bld) 4 % Normal 0.0-10.0 [facility] Comment on above: Performed By: #### A CBC, FEPRO #### Testing performed at [address] [place] [address] Neutrophils/100 WBC (Bld) 68 % Normal 37.0-75.0 [facility] Comment on above: Performed By: #### A CBC, FEPRO #### Testing performed at [address] [address] PLATELET COMMENT DECREASED Normal [facility] Comment on above: Performed By: #### A CBC, FEPRO #### Testing performed at [address] [place] [address] RBC morphology finding Nom (Bld) 1+ Normal [facility] Comment on above: Result Comment: ANIS OCYTE 1+ POIKILOCYTE 1+ TARGET CELLS 1+ MICROCYTOSIS Performed By: #### A CBC, FEPRO #### Testing performed at [address] [address] Erythrocyte distribution width (RBC) [Ratio] 16.6 % High 11.5-14.5 [facility] Comment on above: Performed By: #### A CBC, FEPRO #### Testing performed at [address] [place] [address] Hematocrit (Bld) [Volume fraction] 27.6 % Low 42.0-52.0 [facility] Comment on above: Performed By: #### A CBC, FEPRO #### Testing performed at [address] [place] [address] Hemoglobin (Bld) [Mass/Vol] 8.7 g/dL Low 14.0-18.0 [facility] Comment on above: Performed By: #### A CBC, FEPRO #### Testing performed at [address] [address] MCH (RBC) [Entitic mass] 22.9 pg Low 26.0-35.0 [facility] Comment on above: Performed By: #### A CBC, FEPRO #### Testing performed at [address] [address] MCHC (RBC) [Mass/Vol] 31.7 g/dL Normal 27.0-37.0 [facility] Comment on above: Performed By: #### A CBC, FEPRO #### Testing performed at [address] [address] MCV (RBC) [Entitic vol] 72.2 fL Low 80.0-100.0 [facility] Comment on above: Performed By: #### A CBC, FEPRO #### Testing performed at [address] [address] Platelet mean volume (Bld) [Entitic vol] 8.4 fL Normal 7.4-11.0 [facility] Comment on above: Performed By: #### A CBC, FEPRO #### Testing performed at [address] [address] Platelets (Bld) [#/Vol] 93 10*3/uL Low 130-400 [facility] Comment on above: Performed By: #### A CBC, FEPRO #### Testing performed at [address] [address] RBC (Bld) [#/Vol] 3.83 10*6/uL Low 4.0-6.1 [facility] Comment on above: Performed By: #### A CBC, FEPRO #### Testing performed at [address] [address] WBC (Bld) [#/Vol] 2.0 10*3/uL Low 3.6-11.0 [facility] Comment on above: Performed By: #### A CBC, FEPRO #### Testing performed at [address] [address] ESRon 03-02-2023 ESR (Bld) [Velocity] 21 mm/h High 0-20 [facility] Comment on above: Performed By: #### A CBC, FEPRO #### Testing performed at [address] [address] FERRITINon 03-02-2023 Ferritin [Mass/Vol] 70 ng/mL Normal 17.9-464 [facility] Comment on above: Performed By: #### A CBC, FEPRO ####Testing performed at [place] [id number] HCV FIBROSUREon 03-02-2023 ALPHA 2 MACROGLOBULIN QN 204 Normal [facility] Comment on above: Result Comment: Refe rence range: 110 to 276 Unit: mg/dL Performed By: #### A CBC ####[place] [address]#### LHCVF, LHCV ####Testing performed at [facility] ALT P5P 9 [facility] Comment on above: Result Comment: Refe rence range: 0 to 55 Unit: IU/L Performed By: #### A CBC ####Testing performed at [place] [id number]#### LHCVF, LHCV ####Testing performed at [facility] APOLIPOPROTEIN A1 75 Low [facility] Comment on above: Result Comment: Refe rence range: 101 to 178 Unit: mg/dL Performed By: #### A CBC ####Testing performed at [place] [id number]#### LHCVF, LHCV ####Testing performed at [facility] Bilirubin [Mass/Vol] 0.7 mg/dL Normal [facility] Comment on above: Result Comment: Refe rence range: 0.0 to 1.2 Unit: mg/dL Performed By: #### A CBC ####[place] [address]#### LHCVF, LHCV ####Testing performed at [facility] COMMENT Comment Normal [facility] Comment on above: Result Comment: (NOT E) This test was developed and its performance characteristics determined by [facility]. It has not been cleared or approved by the Food and Drug Administration. The FDA has determined that such clearance or approval is not necessary. For questions regarding this report please contact customer service at . Performed By: #### A CBC ####[place] [address]#### LHCVF, LHCV ####Testing performed at [facility] FIBROSIS SCORE 0.64 High [facility] Comment on above: Result Comment: Refe rence range: 0.00 to 0.21 Performed By: #### A CBC ####[place] [address]#### LHCVF, LHCV ####Testing performed at [facility] FIBROSIS SCORING Comment [facility] Comment on above: Result Comment: (NOT E) <=0.21 = Stage F0 - No fibrosis 0.21 - 0.27 = Stage F0 - F1 0.27 - 0.31 = Stage F1 - Portal fibrosis 0.31 - 0.48 = Stage F1 - F2 0.48 - 0.58 = Stage F2 - Bridging fibrosis with few septa 0.58 - 0.72 = Stage F3 - Bridging fibrosis with many septa 0.72 - 0.74 = Stage F3 - F4 >0.74 = Stage F4 - Cirrhosis Performed By: #### A CBC ####[place] [address]#### LHCVF, LHCV ####Testing performed at [facility] FIBROSIS STAGE Bridging fibrosis wi th many septa Normal [facility] Comment on above: Result Comment: Comm ent F3 Performed By: #### A CBC ####Testing performed at [address], [place] [address]#### LHCVF, LHCV ####Testing performed at [facility] Gamma glutamyl transferase [Catalytic activity/Vol] 21 U/L Normal [facility] Comment on above: Result Comment: Refe rence range: 0 to 65 Unit: IU/L Performed By: #### A CBC ####Testing performed at [address], [place] [address]#### LHCVF, LHCV ####Testing performed at [facility] HAPTOGLOBIN 42 Normal [facility] Comment on above: Result Comment: Refe rence range: 29 to 370 Unit: mg/dL Performed By: #### A CBC ####[place] [address]#### LHCVF, LHCV ####Testing performed at [facility] INTERPRETATIONS Comment Normal [facility] Comment on above: Result Comment: (NOT E) Quantitative results of 6 biochemical tests are analyzed using a computational algorithm to provide a quantitative surrogate marker (0.0-1.0) for liver fibrosis (METAVIR F0-F4) and for necroinflammatory activity (METAVIR A0-A3). Performed By: #### A CBC ####[place] [address]#### LHCVF, LHCV ####Testing performed at [facility] LIMITATIONS Comment Normal [facility] Comment on above: Result Comment: (NOT E) The negative predictive value of a Fibrotest score <0.31 (absence of clinically significant fibrosis) was 85% when compared to liver biopsy in 1,270 HCV infected patients with a 38% prevalence of significant liver fibrosis (F2, 3 or 4). The positive predictive value of a Fibro-test score >0.48 (F2, 3, 4) was 61% in that same patient cohort. HCV FibroSURE is not recommended in patients with Gilbert Disease, acute hemolysis (e.g. HCV ribavirin therapy mediated hemolysis) acute hepa-titis of the liver, extra-hepatic cholestasis, transplant patients, and/or renal insufficiency patients. Any of these clinical situations may lead to inaccurate quantitative predictions of fibrosis and necroinflammatory activity in the liver. Performed By: #### A CBC ####[place] [address]#### LHCVF, LHCV ####Testing performed at [facility] METHODOLOGY Comment Normal [facility] Comment on above: Result Comment: (NOT E) The analytes tested are performed by FibroSure-Specific methods. Not intended for use with other diagnostic considerations. PERFORMED AT [facility] Performed By: #### A CBC ####[place] [address]#### LHCVF, LHCV ####Testing performed at [facility] NECROINFLAMMATORY ACTIVITY GRADE No activity Normal [facility] Comment on above: Result Comment: SEE COMMENT RESULT:A0 Performed By: #### A CBC ####[place] [address]#### LHCVF, LHCV ####Testing performed at [facility] NECROINFLAMMATORY ACTIVITY SCORE 0.04 Normal [facility] Comment on above: Result Comment: Refe rence range: 0.00 to 0.17 Performed By: #### A CBC ####[place] [address]#### LHCVF, LHCV ####Testing performed at [facility] NECROINFLAMMATORY ACTIVITY SCORING Comment Normal [facility] Comment on above: Result Comment: (NOT E) <0.17 = Grade A0 - No Activity 0.17 - 0.29 = Grade A0 - A1 0.29 - 0.36 = Grade A1 - Minimal activity 0.36 - 0.52 = Grade A1 - A2 0.52 - 0.60 = Grade A2 - Moderate activity 0.60 - 0.62 = Grade A2 - A3 >0.62 = Grade A3 - Severe activity Performed By: #### A CBC ####Testing performed at [address] [address]#### LHCVF, LHCV ####Testing performed at [facility] HIV 1,2 ABo 03-02-2023 HIV 1,2 Non-Reactive Normal NONREACTIVE [facility] Comment on above: Performed By: #### A CBC, FEPRO ####Testing performed at [address] [address] IRON PROFILEon 03-02-2023 IRON BINDING 235 UG/DL Low 250-450 [facility] Comment on above: Performed By: #### A CBC, FEPRO #### Testing performed at [address] [address] TRANSFERRIN SATURATION,CALCULATE D 32 % Normal [facility] Comment on above: Performed By: #### A CBC, FEPRO #### Testing performed at [place] [id number] Iron [Mass/Vol] 75 ug/dL Normal 49-181 [facility] Comment on above: Performed By: #### A CBC, FEPRO #### Testing performed at [address] [address] LAST DOSEon 03-02-2023 LAST DOSE 7.11.23 @1500 Normal [facility] MAGNESIUMon 03-02-2023 Magnesium [Mass/Vol] 1.8 mg/dL Normal 1.6-2.3 [facility] Comment on above: Performed By: #### A CBC, FEPRO ####Testing performed at [address] [address] RENAL PANEL,FASTINGon 2022 ALBUMIN 2.6 G/dl Low 3.5-5.0 [facility] Comment on above: Performed By: #### A CBC, FEPRO ####Testing performed at [address] [address] Calcium [Mass/Vol] 7.9 mg/dL Low 8.4-10.2 [facility] Comment on above: Performed By: #### A CBC, FEPRO ####Testing performed at [address] [address] Chloride [Moles/Vol] 114 mmol/L High 98-107 [facility] Comment on above: Result Comment: Krystian boyd note: Triglyceride levels of 600mg/dL or higher may positively bias chloride results by approximately 2.1 mmol Performed By: #### A CBC, FEPRO ####Testing performed at [address] [address] CO2 [Moles/Vol] 27 mmol/L Normal 22-30 [facility] Comment on above: Performed By: #### A CBC, FEPRO ####Testing performed at [address] [address] Creatinine [Mass/Vol] 0.50 mg/dL Low 0.7-1.2 [facility] Comment on above: Performed By: #### A CBC, FEPRO ####Testing performed at [address] [address] EST. GFR, 221 ml/min/1.73sq.m [facility] Comment on above: Performed By: #### A CBC, FEPRO ####Testing performed at [address] [address] EST. GFR,Non 183 ml/min/1.73sq.m [facility] Comment on above: Performed By: #### A CBC, FEPRO ####Testing performed at [address] [address] GFR Information Average GFR for 50-5 9 years old = 93. Normal [facility] Comment on above: Result Comment: Rn Postpartum kaveh Kidney disease, GFR = <60. Kidney failure, GFR = <15. The GFR estimate is not adjusted for extreme body surface area or acute process, nor has it been validated for women or ethnic groups other than and . Performed By: #### A CBC, FEPRO ####Testing performed at [address] [address] Glucose [Mass/Vol] 87 mg/dL Normal 70-100 [facility] Comment on above: Result Comment: NORMAL <100 mg/dL PREDIABETES 101-126 mg/dL DIABETES 126 mg/dL or higher Performed By: #### A CBC, FEPRO ####Testing performed at [address] [address] PHOSPHOROUS 2.9 MG/DL Normal 2.5-4.5 [facility] Comment on above: Performed By: #### A CBC, FEPRO ####Testing performed at [address] [address] Potassium [Moles/Vol] 4.1 mmol/L Normal 3.5-5.1 [facility] Comment on above: Performed By: #### A CBC, FEPRO ####Testing performed at [address] [address] Sodium [Moles/Vol] 137 mmol/L Normal 137-145 [facility] Comment on above: Performed By: #### A CBC, FEPRO ####Testing performed at [address] [address] Urea nitrogen [Mass/Vol] 13 mg/dL Normal 7-20 [facility] Comment on above: Performed By: #### A CBC, FEPRO ####Testing performed at [address] [address] RETIC COUNTon 03-02-2023 RETIC COUNT 2.21 % Normal 0.50-2.30 [facility] Comment on above: Performed By: #### A CBC, FEPRO #### Testing performed at [facility] [address] [place] [address] VANCOMYCIN RANDOMon 03-02-20 23 VANCOMYCIN RANDOM 13.4 UG/ML Normal 5.0-20 [facility] VANCOMYCIN TROUGHon 03-02-20 23 VANCOMYCIN TROUGH 22.9 UG/ML High 15-20 [facility] C REACTIVE PROTEINon 023 CRP [Mass/Vol] 13.5 mg/L High 0-10 [facility] Comment on above: Performed By: #### L STR #### Testing performed at [facility] CBCon 03-01-2023 DTYPE MANUAL DIFF Normal [facility] Comment on above: Performed By: #### L STR #### Testing performed at [facility] Eosinophils/100 WBC (Bld) 1 % Normal 0.0-11.0 [facility] Comment on above: Performed By: #### L STR #### Testing performed at [facility] Lymphocytes/100 WBC (Bld) 41 % Normal 20.0-55.0 [facility] Comment on above: Performed By: #### L STR #### Testing performed at [facility] Monocytes/100 WBC (Bld) 2 % Normal 0.0-10.0 [facility] Comment on above: Performed By: #### L STR #### Testing performed at [facility] Neutrophils/100 WBC (Bld) 56 % Normal 37.0-75.0 [facility] Comment on above: Performed By: #### L STR #### Testing performed at [facility] PLATELET COMMENT DECREASED Normal [facility] Comment on above: Performed By: #### L STR #### Testing performed at [facility] RBC morphology finding Nom (Bld) ANISOCYTE Normal [facility] Comment on above: Performed By: #### L STR #### Testing performed at [facility] Erythrocyte distribution width (RBC) [Ratio] 16.7 % High 11.5-14.5 [facility] Comment on above: Performed By: #### L STR #### Testing performed at [facility] Hematocrit (Bld) [Volume fraction] 27.4 % Low 42.0-52.0 [facility] Comment on above: Performed By: #### L STR #### Testing performed at [facility] Hemoglobin (Bld) [Mass/Vol] 8.8 g/dL Low 14.0-18.0 [facility] Comment on above: Performed By: #### L STR #### Testing performed at [facility] MCH (RBC) [Entitic mass] 23.1 pg Low 26.0-35.0 [facility] Comment on above: Performed By: #### L STR #### Testing performed at [facility] MCHC (RBC) [Mass/Vol] 32.1 g/dL Normal 27.0-37.0 [facility] Comment on above: Performed By: #### L STR #### Testing performed at [facility] MCV (RBC) [Entitic vol] 72.1 fL Low 80.0-100.0 [facility] Comment on above: Performed By: #### L STR #### Testing performed at [facility] Platelet mean volume (Bld) [Entitic vol] 7.7 fL Normal 7.4-11.0 [facility] Comment on above: Performed By: #### L STR #### Testing performed at [facility] Platelets (Bld) [#/Vol] 85 10*3/uL Low 130-400 [facility] Comment on above: Performed By: #### L STR #### Testing performed at [facility] RBC (Bld) [#/Vol] 3.81 10*6/uL Low 4.0-6.1 [facility] Comment on above: Performed By: #### L STR #### Testing performed at [facility] WBC (Bld) [#/Vol] 2.0 10*3/uL Low 3.6-11.0 [facility] Comment on above: Performed By: #### L STR #### Testing performed at [facility] ESRon 03-01-2023 ESR (Bld) [Velocity] 24 mm/h High 0-20 [facility] Comment on above: Performed By: #### L STR #### Testing performed at [facility] HCV RNA HERMAN QUAL RFX TO ABBIE Ton 03-01-2023 HCV RNA, QUANT Not detected Normal [facility] Comment on above: Result Comment: No e vidence of active HCV infection. Unit: IU/mL Performed By: #### A CBC ####[place] [address]#### LHCVF, LHCV ####Testing performed at [facility] TEST INFORMATION Comment Normal [facility] Comment on above: Result Comment: (NOT E) The quantitative range of this assay is 15 IU/mL to 100 million IU/mL. PERFORMED AT [facility] Performed By: #### A CBC ####[place] [address]#### LHCVF, LHCV ####Testing performed at [facility] LAST DOSEon 03-01-2023 LAST DOSE 7.11.23 @1500 Normal [facility] MAGNESIUMon 03-01-2023 Magnesium [Mass/Vol] 2.0 mg/dL Normal 1.6-2.3 [facility] Comment on above: Performed By: #### L STR #### Testing performed at [facility] RAPID TOX SCREEN,URINEon AMPHETAMINE Negative Normal NEGATIVE [facility] Comment on above: Result Comment: <500 ng/ml CUTOFF BARBITURATES Negative Normal NEGATIVE [facility] Comment on above: Result Comment: <200 ng/ml CUTOFF BENZODIAZEPINES Positive Abnormal NEGATIVE [facility] Comment on above: Result Comment: <150 ng/ml CUTOFF *Unconfirmed Screening Result* Unconfirmed screening results are to be used only for medical treatment purposes. BUPRENORPHINE Positive Abnormal NEGATIVE [facility] Comment on above: Result Comment: <10 ng/ml CUTOFF *Unconfirmed Screening Result* Unconfirmed screening results are to be used only for medical treatment purposes. CANNABINOIDS Negative Normal NEGATIVE [facility] Comment on above: Result Comment: <50 ng/ml CUTOFF COCAINE Positive Abnormal NEGATIVE [facility] Comment on above: Result Comment: <150 ng/ml CUTOFF *Unconfirmed Screening Result* Unconfirmed screening results are to be used only for medical treatment purposes. FENTANYL Negative Normal NEGATIVE [facility] Comment on above: Result Comment: 20 n g/mL CUTOFF *Unconfirmed Screening Result* Unconfirmed screening results are to be used only for medical treatment purposes. This test has not been approved by the FDA. METHADONE Negative Normal NEGATIVE [facility] Comment on above: Result Comment: <200 ng/ml CUTOFF METHAMPHETAMINE Negative Normal NEGATIVE [facility] Comment on above: Result Comment: <500 ng/ml CUTOFF OPIATES Positive Abnormal NEGATIVE [facility] Comment on above: Result Comment: <100 ng/ml CUTOFF *Unconfirmed Screening Result* Unconfirmed screening results are to be used only for medical treatment purposes. OXYCODONE Negative Normal NEGATIVE [facility] Comment on above: Result Comment: <100 ng/ml CUTOFF PHENCYCLIDINE Negative Normal NEGATIVE [facility] Comment on above: Result Comment: <25 ng/ml CUTOFF PROPOXYPHENE Negative Normal NEGATIVE [facility] Comment on above: Result Comment: <300 ng/ml CUTOFF TRICYCLIC ANTIDEPRESSANTS Negative Normal NEGATIVE [facility] Comment on above: Result Comment: <300 ng/ml CUTOFF RENAL PANEL,FASTINGon 2022 ALBUMIN 2.6 G/dl Low 3.5-5.0 [facility] Comment on above: Performed By: #### L STR #### Testing performed at [facility] Calcium [Mass/Vol] 7.5 mg/dL Low 8.4-10.2 [facility] Comment on above: Performed By: #### L STR #### Testing performed at [facility] Chloride [Moles/Vol] 108 mmol/L High 98-107 [facility] Comment on above: Result Comment: Krystian boyd note: Triglyceride levels of 600mg/dL or higher may positively bias chloride results by approximately 2.1 mmol Performed By: #### L STR #### Testing performed at [facility] CO2 [Moles/Vol] 25 mmol/L Normal 22-30 [facility] Comment on above: Performed By: #### L STR #### Testing performed at [facility] Creatinine [Mass/Vol] 0.49 mg/dL Low 0.7-1.2 [facility] Comment on above: Performed By: #### L STR #### Testing performed at [facility] EST. GFR, 226 ml/min/1.73sq.m [facility] Comment on above: Performed By: #### L STR #### Testing performed at [facility] EST. GFR,Non 187 ml/min/1.73sq.m [facility] Comment on above: Performed By: #### L STR #### Testing performed at [facility] GFR Information Average GFR for 50-5 9 years old = 93. Normal [facility] Comment on above: Result Comment: Rn Postpartum kaveh Kidney disease, GFR = <60. Kidney failure, GFR = <15. The GFR estimate is not adjusted for extreme body surface area or acute process, nor has it been validated for women or ethnic groups other than and . Performed By: #### L STR #### Testing performed at [facility] Glucose [Mass/Vol] 116 mg/dL High 70-100 [facility] Comment on above: Result Comment: NORMAL <100 mg/dL PREDIABETES 101-126 mg/dL DIABETES 126 mg/dL or higher Performed By: #### L STR #### Testing performed at [facility] PHOSPHOROUS 3.0 MG/DL Normal 2.5-4.5 [facility] Comment on above: Performed By: #### L STR #### Testing performed at [facility] Potassium [Moles/Vol] 4.1 mmol/L Normal 3.5-5.1 [facility] Comment on above: Performed By: #### L STR #### Testing performed at [facility] Sodium [Moles/Vol] 137 mmol/L Normal 137-145 [facility] Comment on above: Performed By: #### L STR #### Testing performed at [facility] Urea nitrogen [Mass/Vol] 15 mg/dL Normal 7-20 [facility] Comment on above: Performed By: #### L STR #### Testing performed at [facility] C REACTIVE PROTEINon 023 CRP [Mass/Vol] 19.5 mg/L High 0-10 [facility] Comment on above: Performed By: #### L STR #### Testing performed at [facility] CBCon 02-28-2023 Basophils/100 WBC (Bld) 1 % Normal 0.0-2.0 [facility] Comment on above: Performed By: #### L STR #### Testing performed at [facility] DTYPE MANUAL DIFF Normal [facility] Comment on above: Performed By: #### L STR #### Testing performed at [facility] Eosinophils/100 WBC (Bld) 5 % Normal 0.0-11.0 [facility] Comment on above: Performed By: #### L STR #### Testing performed at [facility] Lymphocytes/100 WBC (Bld) 34 % Normal 20.0-55.0 [facility] Comment on above: Performed By: #### L STR #### Testing performed at [facility] Monocytes/100 WBC (Bld) 3 % Normal 0.0-10.0 [facility] Comment on above: Performed By: #### L STR #### Testing performed at [facility] Neutrophils/100 WBC (Bld) 57 % Normal 37.0-75.0 [facility] Comment on above: Performed By: #### L STR #### Testing performed at [facility] PLATELET COMMENT DECREASED Normal [facility] Comment on above: Performed By: #### L STR #### Testing performed at [facility] RBC morphology finding Nom (Bld) 1+ Normal [facility] Comment on above: Result Comment: MICR OCYTOSIS 1+ ANISOCYTE 1+ POIKILOCYTE Performed By: #### L STR #### Testing performed at [facility] Erythrocyte distribution width (RBC) [Ratio] 16.4 % High 11.5-14.5 [facility] Comment on above: Performed By: #### L STR #### Testing performed at [facility] Hematocrit (Bld) [Volume fraction] 29.3 % Low 42.0-52.0 [facility] Comment on above: Performed By: #### L STR #### Testing performed at [facility] Hemoglobin (Bld) [Mass/Vol] 9.4 g/dL Low 14.0-18.0 [facility] Comment on above: Performed By: #### L STR #### Testing performed at [facility] MCH (RBC) [Entitic mass] 23.1 pg Low 26.0-35.0 [facility] Comment on above: Performed By: #### L STR #### Testing performed at [facility] MCHC (RBC) [Mass/Vol] 31.9 g/dL Normal 27.0-37.0 [facility] Comment on above: Performed By: #### L STR #### Testing performed at [facility] MCV (RBC) [Entitic vol] 72.3 fL Low 80.0-100.0 [facility] Comment on above: Performed By: #### L STR #### Testing performed at [facility] Platelet mean volume (Bld) [Entitic vol] 7.7 fL Normal 7.4-11.0 [facility] Comment on above: Performed By: #### L STR #### Testing performed at [facility] Platelets (Bld) [#/Vol] 91 10*3/uL Low 130-400 [facility] Comment on above: Performed By: #### L STR #### Testing performed at [facility] RBC (Bld) [#/Vol] 4.05 10*6/uL Normal 4.0-6.1 [facility] Comment on above: Performed By: #### L STR #### Testing performed at [facility] WBC (Bld) [#/Vol] 1.7 10*3/uL Critically low 3.6-11.0 [facility] Comment on above: Result Comment: CALL ED TO AND READ BACK BY HARDY HUTCHINS RN AT 0523 KK Performed By: #### L STR #### Testing performed at [facility] ESRon 02-28-2023 ESR (Bld) [Velocity] 35 mm/h High 0-20 [facility] Comment on above: Performed By: #### L STR #### Testing performed at [facility] LAST DOSEon 02-28-2023 LAST DOSE 02.28.23 @1314 Normal [facility] MAGNESIUMon 02-28-2023 Magnesium [Mass/Vol] 2.2 mg/dL Normal 1.6-2.3 [facility] Comment on above: Performed By: #### A CBC ####[place] [address]#### LHCVF, LHCV ####Testing performed at [facility] RENAL PANEL,FASTINGon 2022 ALBUMIN 2.7 G/dl Low 3.5-5.0 [facility] Comment on above: Performed By: #### L STR #### Testing performed at [facility] Calcium [Mass/Vol] 7.6 mg/dL Low 8.4-10.2 [facility] Comment on above: Performed By: #### L STR #### Testing performed at [facility] Chloride [Moles/Vol] 107 mmol/L Normal 98-107 [facility] Comment on above: Result Comment: Plea se note: Triglyceride levels of 600mg/dL or higher may positively bias chloride results by approximately 2.1 mmol Performed By: #### L STR #### Testing performed at [facility] CO2 [Moles/Vol] 27 mmol/L Normal 22-30 [facility] Comment on above: Performed By: #### L STR #### Testing performed at [facility] Creatinine [Mass/Vol] 0.51 mg/dL Low 0.7-1.2 [facility] Comment on above: Performed By: #### L STR #### Testing performed at [facility] EST. GFR, 216 ml/min/1.73sq.m [facility] Comment on above: Performed By: #### L STR #### Testing performed at [facility] EST. GFR,Non 179 ml/min/1.73sq.m [facility] Comment on above: Performed By: #### L STR #### Testing performed at [facility] GFR Information Average GFR for 50-5 9 years old = 93. Normal [facility] Comment on above: Result Comment: Rn Postpartum kaveh Kidney disease, GFR = <60. Kidney failure, GFR = <15. The GFR estimate is not adjusted for extreme body surface area or acute process, nor has it been validated for women or ethnic groups other than and . Performed By: #### L STR #### Testing performed at [facility] Glucose [Mass/Vol] 152 mg/dL High 70-100 [facility] Comment on above: Result Comment: NORMAL <100 mg/dL PREDIABETES 101-126 mg/dL DIABETES 126 mg/dL or higher Performed By: #### L STR #### Testing performed at [facility] PHOSPHOROUS 2.9 MG/DL Normal 2.5-4.5 [facility] Comment on above: Performed By: #### L STR #### Testing performed at [facility] Potassium [Moles/Vol] 3.7 mmol/L Normal 3.5-5.1 [facility] Comment on above: Performed By: #### L STR #### Testing performed at [facility] Sodium [Moles/Vol] 137 mmol/L Normal 137-145 [facility] Comment on above: Performed By: #### L STR #### Testing performed at [facility] Urea nitrogen [Mass/Vol] 16 mg/dL Normal 7-20 [facility] Comment on above: Performed By: #### L STR #### Testing performed at [facility] US DUPLEX EXTREMITY DVT MARCUS Powers 02-28-2023 US DUPLEX EXTREMITY DVT BILATERAL Ultrasound venous duplex scan, bilateral lower extremities CLINICAL: Leg swelling. TECHNIQUE: Farris-scale, color-flow, and Doppler examination of both legs was performed with and without provocative maneuvers. FINDINGS: Comparison: None. Sonographic examination of both lower extremity deep venous systems to include the common femoral veins, superficial femoral veins, and popliteal veins demonstrates normal compressibility, color-flow, phasic variation, and augmentation. The origins of the greater saphenous veins on both sides demonstrate normal compression, with normal color-flow at the origins of the proximal profunda femoris veins. The posterior tibial and peroneal veins in right calf could not be examined as patient unable to tolerate being touched in the distal right leg. Left peroneal and posterior tibial veins not visualized due to the below the knee. IMPRESSION: 1. Negative for above-knee deep venous thrombosis in right leg and left leg. The posterior tibial and peroneal veins on both sides not examined as discussed above. 2. Shotty bilateral inguinal lymph nodes. Normal [facility] VANCOMYCIN TROUGHon 02-29-20 23 VANCOMYCIN TROUGH 19.5 UG/ML Normal -20 [facility] VANCOMYCIN TROUGH 16.0 UG/ML Normal 15-20 [facility] BLOOD CULTUREon 02-27-2023 Bacteria identified Cx Nom (Bld) SPECIMEN DESCRIPTION PERIPHERAL BLOOD DRAW SPECIAL REQUESTS right wrist CULTURE NO GROWTH 5 DAYS * Result Note: Testing performed at [place] [address] * REPORT STATUS 03/04/2023 * Result Note: FINAL * Normal [facility] Comment on above: Performed By: #### L STR #### Testing performed at [facility] Bacteria identified Cx Nom (Bld) SPECIMEN DESCRIPTION PERIPHERAL BLOOD DRAW SPECIAL REQUESTS LEFT FORARM CULTURE NO GROWTH 5 DAYS * Result Note: Testing performed at [place] [address] * REPORT STATUS 03/04/2023 * Result Note: FINAL * Normal [facility] Comment on above: Performed By: #### B LC #### Testing performed at [facility] [address] [place] [address] Testing performed at [facility] [address] [place] [address] C REACTIVE PROTEINon 023 CRP [Mass/Vol] 25.1 mg/L High 0-10 [facility] ESRon 02-27-2023 ESR (Bld) [Velocity] 32 mm/h High 0-20 [facility] HEMOGLOBIN A1Con 02-27-2023 Glucose [Mass/Vol] 91 mg/dL Normal [facility] HbA1c (Bld) [Mass fraction] 4.8 % Normal 0-6 [facility] Comment on above: Result Comment: NORMAL <5.7% PREDIABETES 5.7-6.4% DIABETES 6.5% OR HIGHER LACTATE,BLOODon 02-27-2023 Lactate [Moles/Vol] 1.0 mmol/L Normal 0.7-2.0 [facility] MRSA SCREENon 02-27-2023 MRSA DNA HERMAN+probe Ql (Unsp spec) Negative Normal NEGATIVE [facility] STAPH AUREUS SCREEN Positive Abnormal NEGATIVE [facility] Comment on above: Result Comment: TEST ING PERFORMED BY PCR PROCALCITONINon 02-27-2023 PROCALCITONIN 0.07 ng/mL Normal 0.00-0.49 [facility] Comment on above: Result Comment: PCT Interpretation Concentrations under 0.5 ng/mL do not exclude local infections of systemic infections in their initial stages (e.g. under six hours from onset of illness). PCT concentrations between 0.5 and 2.0 ng/mL should be interpreted with consideration of patient's history. In this range, it is recommended to retest PCT within 6 to 24 hours. Testing performed at [place] [id number] Performed By: #### P CT #### Testing performed at [place] [id number] CBC, EDIF, PLATELETon 2022 ABSOLUTE BASOPHIL COUNT 0.0 10*3/uL 0.0 - 0.2 10*3/uL [facility] Basophils/100 WBC (Bld) 0.2 % 0.0 - 2.0 % [facility] Differential cell count method Nom (Bld) AUTO DIFF % [facility] Eosinophils (Bld) [#/Vol] 0.1 10*3/uL 0.0 - 0.7 10*3/uL [facility] Eosinophils/100 WBC (Bld) 2.0 % 0.0 - 11.0 % [facility] Erythrocyte distribution width (RBC) [Ratio] 16.6 % High 11.5 - 14.5 % [facility] Hematocrit (Bld) [Volume fraction] 31.8 % Low 42.0 - 52.0 % [facility] Hemoglobin (Bld) [Mass/Vol] 10.0 g/dL Low [facility] Interpretation and review of laboratory results Abnormal [facility] Lymphocytes (Bld) [#/Vol] 0.6 10*3/uL Low 1.2 - 3.4 10*3/uL [facility] Lymphocytes/100 WBC (Bld) 19.7 % Low 20.0 - 55.0 % [facility] MCH (RBC) [Entitic mass] 22.5 pg Low 26.0 - 35.0 PG [facility] MCHC (RBC) [Mass/Vol] 31.4 g/dL [facility] MCV (RBC) [Entitic vol] 71.5 fL Low [facility] Monocytes (Bld) [#/Vol] 0.3 10*3/uL 0.0 - 0.7 10*3/uL [facility] Monocytes/100 WBC (Bld) 10.5 % High 0.0 - 10.0 % [facility] Neutrophils (Bld) [#/Vol] 1.9 10*3/uL 1.4 - 6.5 10*3/uL [facility] Neutrophils/100 WBC (Bld) 67.6 % 37.0 - 75.0 % [facility] Platelet mean volume (Bld) [Entitic vol] 8.5 fL [facility] Platelets (Bld) [#/Vol] 104 10*3/uL Low 130 - 400 10*3/uL [facility] RBC (Bld) [#/Vol] 4.44 10*6/uL 4.0 - 6.1 10*6/uL [facility] WBC (Bld) [#/Vol] 2.9 10*3/uL Low 3.6 - 11.0 10*3/uL [facility] COMPREHENSIVE METABOLIC PANE Ras 02-26-2023 Albumin [Mass/Vol] 3.2 G/dl Low 3.5 - 5.0 G/dl [facility] Albumin/Globulin [Mass ratio] 0.8 {ratio} RATIO [facility] ALP [Catalytic activity/Vol] 54 U/L [facility] ALT [Catalytic activity/Vol] 17 U/L NINF [facility] AST [Catalytic activity/Vol] 26 U/L [facility] Bilirubin [Mass/Vol] 1.1 mg/dL [facility] Calcium [Mass/Vol] 8.0 mg/dL Low [facility] Chloride [Moles/Vol] 100 mmol/L [facility] Comment on above: Please note: Triglyc eride levels of 600mg/dL or higher may positively bias chloride results by approximately 2.1 mmol CO2 [Moles/Vol] 31 mmol/L High [facility] Creatinine [Mass/Vol] 0.58 mg/dL Low [facility] GFR COMMENT Average GFR for 50-5 9 years old = 93. [facility] Comment on above: Chronic Kidney disea se, GFR = <60. Kidney failure, GFR = <15. The GFR estimate is not adjusted for extreme body surface area or acute process, nor has it been validated for women or ethnic groups other than and . GFR/1.73 sq M.predicted among blacks MDRD (S/P/Bld) [Vol rate/Area] 186 mL/min/{1.73_m2} ml/min/1.73s q.m [facility] GFR/1.73 sq M.predicted among non-blacks MDRD (S/P/Bld) [Vol rate/Area] 154 mL/min/{1.73_m2} ml/min/1.73s q.m [facility] Glucose post fast [Mass/Vol] 129 mg/dL High [facility] Comment on above: NORMAL <100 mg/dL PREDIABETES 101-126 mg/dL DIABETES 126 mg/dL or higher Interpretation and review of laboratory results Abnormal [facility] Potassium [Moles/Vol] 3.8 mmol/L [facility] Protein [Mass/Vol] 7.4 g/dL [facility] Sodium [Moles/Vol] 138 mmol/L [facility] Urea nitrogen [Mass/Vol] 17 mg/dL [facility] LACTATE, BLOODon 02-26-2023 Interpretation and review of laboratory results Abnormal [facility] Lactate [Moles/Vol] 3.0 mmol/L Critically high 0.7 - 2.0 mmol/L [facility] Comment on above: PLEASE REPEAT INITIA L CRITICAL IN 3 HOURS IF ED OR INPATIENT SEPSIS PATIENT Result called to read back by: CICI 02/26/2023 @ 21:48 by RAJAN [facility] MAGNESIUMon 02-26-2023 Magnesium [Mass/Vol] 1.9 mg/dL [facility] No Panel Informationon 02-26 [facility] PROTIME-INRon 02-26-2023 INR Coag (PPP) [Relative time] 1.25 {INR} High 0.85 - 1.10 [facility] Comment on above: 2.0-3.0 THERAPEUTIC RANGE 2.5-3.5 MECHANICAL VALVE RANGE Interpretation and review of laboratory results Abnormal [facility] PT Coag (PPP) [Time] 15.[address] [facility] WOUND DEBRIDEMENTon 01-19-20 KIEL Hoff 01/18/2023 4:34 PM WOUND DEBRIDEMENT Performed by: KIEL Hoff Authorized by: KIEL Hoff Pre-Procedure Details: Consent: Informed consent was obtained prior to the procedure after discussion of the risks, benefits, and alternatives and expected outcomes were discussed with the patient; consent placed in chart. The possibilities of reaction to medication, pulmonary aspiration, bleeding, infection, the need for additional procedures, failure to diagnosis a condition, and creating a complication requiring transfusion or operation were discussed with the patient. The patient concurred with the proposed plan, giving informed consent. [place] Protocol required: Yes. [place] Protocol is required. Preprocedure verification is complete - patient verified and consents confirmed Local anesthetic: Benzocaine spray mL of local anesthetic: 1 Procedure Details: Technique: Clean Type: selective Method: SharpCurette 3mm was used to complete the debridement. Hemostasis obtained with: Direct pressureTissue and other material debrided included devitalized tissue and necrotic debris. Dressing: medihoney with triple helix, dry dressing. Post-debridement length (cm): 2 Post-debridement width (cm): 2.1 Post-debridement depth (cm): 0.1 Percent debrided: 50% Calc area (cm^2): 4.2 Calculated area debrided (cm^2): 2.1 Calculated volume debrided (cm^3): 0.42 Post-Procedure Details: Estimated blood loss: Minimal Response to treatment: Procedure was tolerated well Complications: None [facility] Radiology Study observation (narrative) [facility] WOUND CULTUREon 12-31-2022 WOUND CULTURE SPECIMEN DESCRIPTION RIGHT LEG SPECIAL REQUESTS RIGHT LEG FLUID DRAIN GRAM SMEAR FEW * Result Note: WBC'S SEEN * * Result Note: NO * * Result Note: SQUAMOUS EPITHELIAL CELLS * * Result Note: FEW * * Result Note: GRAM POSITIVE COCCI * CULTURE CORYNEBACTERIUM STRIATUM * Result Note: HEAVY GROWTH * * Result Note: THE NATIONAL COMMITTEE FOR CLINICAL LABORATORY STANDARDS HAS NOT EXPLICITLY PUBLISHED GUIDELINES FOR THE SUSCEPTIBILITY TESTING OF CORYNEFORM BACTERIA. REFERENCE MANUAL OF CLINICAL MICROBIOLOGY 7TH EDITION 1999 [id number] * * Result Note: THE GLYCOPEPTIDES AND LIPOPEPTIDES (VANCOMYCIN IN PARTICULAR) AND THE MACROLIDES ERYTHROMYCIN, CLARITHROMYCIN AND AZITHROMYCIN HAVE SHOWN ACTIVITY AGAINST CORYNEBACTERIUM SP. (MANUAL OF CLINICAL MICROBIOLOGY Y, ET. AL. [id number]). * * Result Note: ENTEROCOCCUS FAECALIS GROUP D * * Result Note: MODERATE GROWTH * * Result Note: Testing performed at [place], [place] [address] * REPORT STATUS 12/31/2022 * Result Note: FINAL * ORGANISM ENTEROCOCCUS FAECALIS GROUP D * Result Note: ENTEROCOCCUS FAECALIS GROUP D * METHOD LIV AMPICILLIN <=2 SUSCEPTIBLE PENICILLIN G 2 SUSCEPTIBLE VANCOMYCIN 1 SUSCEPTIBLE GENTAMICIN HIGH LEVEL RESISTANT STREPTOMYCIN HIGH LEVEL RESISTANT Normal [facility] Comment on above: Performed By: #### M G, TILA, WILNER, LIVR #### [place] [address] CELLULAR AND TISSUE-BASED SC ODUCT WOUND CAREon 12-28-2022 KIEL Hoff 12/28/2022 4:49 PM CELLULAR AND TISSUE-BASED PRODUCT WOUND CARE Date/Time: 12/28/2022 2:15 PM Performed by: KIEL Hoff Authorized by: KIEL Hoff Pre-Procedure Details: Explained the risks and benefits of the procedure. Obtained verbal consent to proceed. Anesthesia/Pain Control: topical application: Topical anesthesia: cetacaine spray. Procedure details: Location: trunk/arms/legs Debridement Details: The wound area was debrided prior to product application. Curette 3mm was used to complete the debridement. The debridement was not excisional. Tissue and other material debrided included necrotic debris and slough. Size of wound: 3 square centimeters 6 square centimeters of PuraPly was applied to the wound using aseptic technique to cover the whole wound areas. 0 square centimeters wasted. Post-procedure details: Estimated blood loss: Minimal Patient tolerance of procedure: Tolerated well, no immediate complications Complications: None [facility] Radiology Study observation (narrative) [facility] CELLULAR AND TISSUE-BASED SC ODUCT WOUND CAREon 12-21-2022 KIEL Hoff 12/21/2022 2:04 PM CELLULAR AND TISSUE-BASED PRODUCT WOUND CARE Date/Time: 12/21/2022 1:15 PM Performed by: KIEL Hoff Authorized by: KIEL Hoff Pre-Procedure Details: Explained the risks and benefits of the procedure. Obtained verbal consent to proceed. Anesthesia/Pain Control: topical application: Topical anesthesia: cetacaine spray. Procedure details: Location: trunk/arms/legs Debridement Details: The wound area was debrided prior to product application. Curette 3mm was used to complete the debridement. The debridement was not excisional. Tissue and other material debrided included devitalized tissue, necrotic debris and slough. Size of wound: 4.4 square centimeters 4 square centimeters of PuraPly was applied to the wound using aseptic technique to cover the whole wound areas. Post-procedure details: Estimated blood loss: Minimal Patient tolerance of procedure: Tolerated well, no immediate complications Complications: None [facility] Radiology Study observation (narrative) [facility] CT Head WO contraston 2022 IMPRESSION: 1. No acute intracranial abnormality. 2. Small subcutaneous fat stranding and hyperdensity at the right posterior suboccipital scalp, possibly representing a contusion or scarring. RADIOLOGY EXAMINATION: CT HEAD WITHOUT CONTRAST HISTORY: COMPARISON: None. TECHNIQUE: CT examination of the head without IV contrast. Dose reduction techniques were achieved by using automated exposure control and/or adjustment of mA and/or kV according to patient size and/or use of iterative reconstruction technique. FINDINGS: No acute intracranial hemorrhage. No acute loss of farris/white differentiation. The ventricles and sulci are normal in appearance. The osseous structures are unremarkable. There is a small subcutaneous area of fat stranding and hyperdensity at the right posterior suboccipital scalp. The paranasal sinuses and mastoid air cells are clear. RADIOLOGY Dee Hernandez M D - 12/08/2022 EXAMINATION: CT HEAD WITHOUT CONTRAST HISTORY: COMPARISON: None. TECHNIQUE: CT examination of the head without IV contrast. Dose reduction techniques were achieved by using automated exposure control and/or adjustment of mA and/or kV according to patient size and/or use of iterative reconstruction technique. FINDINGS: No acute intracranial hemorrhage. No acute loss of farris/white differentiation. The ventricles and sulci are normal in appearance. The osseous structures are unremarkable. There is a small subcutaneous area of fat stranding and hyperdensity at the right posterior suboccipital scalp. The paranasal sinuses and mastoid air cells are clear. IMPRESSION IMPRESSION: 1. No acute intracranial abnormality. 2. Small subcutaneous fat stranding and hyperdensity at the right posterior suboccipital scalp, possibly representing a contusion or scarring. [facility] observation (narrative) [facility] CT Head WO contrastOrdered B y: Dee Hernandez on 12-08-2022 [facility] Work Phone: DIAGNOSTIC UPPER ENDOSCOPYon 10-21-2022 [facility] Patient Name: Carmen Gilman Procedure Date: 10/21/2022 1:12 PM Date of : 1965 Admit Type: Outpatient Age: 57 Room: Procedure Room #2 Gender: Male Note Status: Finalized Attending MD: Antony Suarez Jr., DO, [id number] Instrument Name: [id number] Procedure: Upper GI endoscopy Attending Participation: I personally performed the entire procedure. Indications: Cirrhosis with suspected esophageal varices Providers: Antony Suarez Jr., DO Referring MD: ANI WORLEY, SUSTAINABILITY COORDINATOR-ENVIRONMENTAL EMERGENCIES PLANNER Complications: No immediate complications. Estimated Blood Loss: Estimated blood loss: none. Medicines: See the Anesthesia note for documentation of the administered medications Procedure: Pre-Anesthesia Assessment: - Prior to the procedure, a History and Physical was performed, and patient medications and allergies were reviewed. The patient is competent. The risks and benefits of the procedure and the sedation options and risks were discussed with the patient. All questions were answered and informed consent was obtained. Patient identification and proposed procedure were verified by the physician in the pre-procedure area. Airway Examination: normal oropharyngeal airway and neck mobility. Respiratory Examination: clear to auscultation. CV Examination: normal. Prophylactic Antibiotics: The patient does not require prophylactic antibiotics. Prior Anticoagulants: The patient has taken no anticoagulant or antiplatelet agents. ASA Grade Assessment: II - A patient with mild systemic disease. After reviewing the risks and benefits, the patient was deemed in satisfactory condition to undergo the procedure. The anesthesia plan was to use moderate sedation / analgesia (conscious sedation). Immediately prior to administration of medications, the patient was re-assessed for adequacy to receive sedatives. The heart rate, respiratory rate, oxygen saturations, blood pressure, adequacy of pulmonary ventilation, and response to care were monitored throughout the procedure. The physical status of the patient was re-assessed after the procedure. After obtaining informed consent, the endoscope was passed under direct vision. Throughout the procedure, the patient's blood pressure, pulse, and oxygen saturations were monitored continuously. CO2 was used. The Endoscope was introduced through the mouth, and advanced to the third part of duodenum. The upper GI endoscopy was accomplished without difficulty. The patient tolerated the procedure well. Findings: The nasopharynx was normal. Grade II varices were found in the lower third of the esophagus. (no stigmata of potential bleeding noted) Severe portal hypertensive gastropathy was found in the entire examined stomach. The examined duodenum was normal. Impression: - Normal nasopharynx. - Grade II esophageal varices. - Portal hypertensive gastropathy. - Normal examined duodenum. - No specimens collected. Recommendation: - Discharge patient to home (ambulatory). - Resume previous diet. Procedure Code(s): --- Professional --- 44719, Esophagogastroduodenoscopy, flexible, transoral; diagnostic, including collection of specimen(s) by brushing or washing, when performed (separate procedure) Diagnosis Code(s): --- Professional --- K74.60, Unspecified cirrhosis of liver I85.10, Secondary esophageal varices without bleeding K76.6, Portal hypertension K31.89, Other diseases of stomach and duodenum CPT copyright 2021 [employer]. All rights reserved. The codes documented in this report are preliminary and upon co (more content not included)... LAB, [facility] Radiology Study observation (narrative) [facility] CBC Auto Differentialon 03-24 Erythrocyte distribution width (RBC) [Entitic vol] 16.0 % High 11.6 - 14.8 % [facility] Hematocrit (Bld) [Volume fraction] 28.3 % Low 41 - 53 % [facility] Hemoglobin (Bld) [Mass/Vol] 8.9 g/dL Low 13.5 - 17.5 g/dL [facility] MCH (RBC) [Entitic mass] 21.5 pg Low 26 - 34 pg [facility] MCHC (RBC) [Mass/Vol] 31.4 g/dL 31 - 37 g/dL [facility] MCV (RBC) [Entitic vol] 68.5 fL Low 80 - 100 fL [facility] Nucleated RBC (Bld) [#/Vol] 0.00 10*3/uL [facility] Nucleated RBC/100 WBC (Bld) [Ratio] 0.0 % [facility] Platelets (Bld) [#/Vol] 85 10*3/uL Low [facility] RBC (Bld) [#/Vol] 4.13 10*6/uL Low [facility] ealth WBC (Bld) [#/Vol] 2.02 10*3/uL Low [facility] CBC and Diff Morphologyon Ovalocytes LM Ql (Bld) Few [facility] RBC morphology finding Nom (Bld) See Comment [facility] Comment on above: RBC Indices confirme d with manual peripheral smear review. [facility] CRP [Mass/Vol]on 04-21-2022 Interpretation and review of laboratory results Abnormal [facility] CRP, Inflammationon 04-21-20 CRP [Mass/Vol] 19.0 mg/L High NINF - 10.0 mg/L [facility] ESR Westergren method (Bld) [Velocity]on 04-21-2022 ESR (Bld) [Velocity] 57 mm/h High [facility] Interpretation and review of laboratory results Abnormal [facility] HbA1c (Bld) [Mass fraction]O rdered By: Camelia Romero on 04-21-2022 Average glucose Estimated from glycated hemoglobin (Bld) [Mass/Vol] 123 mg/dL High 68 - 114 mg/dL [facility] Interpretation and review of laboratory results Abnormal [facility] Normal: 4.0% - 5.6% Increased risk for diabetes: 5.7% - 6.4% Diabetes: >= 6.5% Pediatrics: No established reference range Estimated average glucose: 68-114 mg/dL [facility] Hemoglobin [id number] By: Libby Romero on 04-21-2022 HbA1c (Bld) [Mass fraction] 5.9 % High 4 - 5.6 % [facility] Magnesiumon 04-21-2022 Magnesium [Mass/Vol] 2.5 mg/dL High 1.6 - 2 .4 mg/dL [facility] Magnesium [Mass/Vol]on 04-21 Interpretation and review of laboratory results Abnormal [facility] Manual Differential panel (B ld)on 04-21-2022 Basophils (Bld) [#/Vol] 0.00 10*3/uL [facility] Basophils/100 WBC (Bld) 0.0 % [facility] Eosinophils (Bld) [#/Vol] 0.05 10*3/uL [facility] Eosinophils/100 WBC (Bld) 2.6 % [facility] Lymphocytes (Bld) [#/Vol] 0.40 10*3/uL Low [facility] Lymphocytes/100 WBC (Bld) 20.0 % [facility] Monocytes (Bld) [#/Vol] 0.05 10*3/uL Low [facility] Monocytes/100 WBC (Bld) 2.6 % [facility] Neutrophils (Bld) [#/Vol] 1.51 10*3/uL Low [facility] Neutrophils/100 WBC (Bld) 74.8 % [facility] No Panel Informationon 04-21 Interpretation and review of laboratory results Abnormal [facility] 1. Bilateral subcutaneous edema. 2. No acute fracture or dislocation identified in either knee. 3. Total right knee arthroplasty in place. JAR/jcw Workstation ID: [id number] SMIC RIS EXAMINATION: XR KNEE LEFT 2 VIEWS (STANDARD); XR KNEE RIGHT 2 VIEWS (STANDARD) 04/20/2022 2:55 pm HISTORY: ORDERING SYSTEM PROVIDED HISTORY: fall, TECHNOLOGIST PROVIDED HISTORY: Injury/Trauma Reason for exam: left knee pain and swelling Cancer History: " Surgery, RadiationHistory: unk Encounter Type: Initial Mechanism of injury: fall ORDERING SYSTEM PROVIDED DIAGNOSIS CODES: N17.9 MARLENE (acute kidney injury) (HCC) ; ORDERING SYSTEM PROVIDED HISTORY: fall, TECHNOLOGIST PROVIDED HISTORY: Injury/Trauma Reason for exam: right knee pain and swelling Cancer History: " Surgery, RadiationHistory: unk Encounter Type: Initial Mechanism of injury: fall ORDERING SYSTEM PROVIDED DIAGNOSIS CODES: N17.9 MARLENE (acute kidney injury) (HCC) COMPARISON: Left knee series October 07, 2021. Right knee series February 14, 2020. TECHNIQUE: Two views of the left knee. Two views of the right knee. FINDINGS: LEFT KNEE: Again present is a remote healed fracture deformity of the proximal fibula. There are similar tricompartmental degenerative changes. No acute fracture or dislocation is identified. There is edema in the subcutaneous tissues. No soft tissue gas collections. RIGHT KNEE: Total right knee arthroplasty in place without evidence of an acute fracture or dislocation. There is edema in the subcutaneous tissues. SMIC RIS Radames Villarreal Ala, DO - 04/21/2022 EXAMINATION: XR KNEE LEFT 2 VIEWS (STANDARD); XR KNEE RIGHT 2 VIEWS (STANDARD) 04/20/2022 2:55 pm HISTORY: ORDERING SYSTEM PROVIDED HISTORY: fall, TECHNOLOGIST PROVIDED HISTORY: Injury/Trauma Reason for exam: left knee pain and swelling Cancer History: " Surgery, RadiationHistory: unk Encounter Type: Initial Mechanism of injury: fall ORDERING SYSTEM PROVIDED DIAGNOSIS CODES: N17.9 MARLENE (acute kidney injury) (HCC) ; ORDERING SYSTEM PROVIDED HISTORY: fall, TECHNOLOGIST PROVIDED HISTORY: Injury/Trauma Reason for exam: right knee pain and swelling Cancer History: " Surgery, RadiationHistory: unk Encounter Type: Initial Mechanism of injury: fall ORDERING SYSTEM PROVIDED DIAGNOSIS CODES: N17.9 MARLENE (acute kidney injury) ([facility]) COMPARISON: Left knee series October 07, 2021. Right knee series February 14, 2020. TECHNIQUE: Two views of the left knee. Two views of the right knee. FINDINGS: LEFT KNEE: Again present is a remote healed fracture deformity of the proximal fibula. There are similar tricompartmental degenerative changes. No acute fracture or dislocation is identified. There is edema in the subcutaneous tissues. No soft tissue gas collections. RIGHT KNEE: Total right knee arthroplasty in place without evidence of an acute fracture or dislocation. There is edema in the subcutaneous tissues. IMPRESSION: 1. Bilateral subcutaneous edema. 2. No acute fracture or dislocation identified in either knee. 3. Total right knee arthroplasty in place. JAR/jcw Workstation ID: [id number] [facility] Renal function 2000 panelon 04-21-2022 Albumin [Mass/Vol] 2.3 g/dL Low 3.2 - 5.2 g/dL [facility] Anion gap [Moles/Vol] 9 mmol/L Low 10 - 20 mmol/L [facility] Calcium [Mass/Vol] 8.4 mg/dL 8.4 - 10. 2 mg/dL [facility] Chloride [Moles/Vol] 108 mmol/L 98 - 10 8 mmol/L [facility] Creatinine [Mass/Vol] 1.40 mg/dL High 0.50 - 1.30 mg/dL [facility] GFR/1.73 sq M.predicted CKD-EPI (S/P/Bld) [Vol rate/Area] 59 Low - PINF [facility] Comment on above: Estimated GFR was ca lculated using the 2020 CKD-EPI creatinine equation. Glucose [Mass/Vol] 104 mg/dL High 65 - 99 mg/dL [facility] HCO3 [Moles/Vol] 28 mmol/L 21 - 32 mmol/L [facility] Interpretation and review of laboratory results Abnormal [facility] Phosphate [Mass/Vol] 3.9 mg/dL 2.7 - 4 .5 mg/dL [facility] Potassium [Moles/Vol] 4.8 mmol/L 3.5 - 5.1 mmol/L [facility] Sodium [Moles/Vol] 140 mmol/L 135 - 145 mmol/L [facility] Urea nitrogen [Mass/Vol] 47 mg/dL High 8 - 25 mg/dL [facility] Urea nitrogen/Creatinine [Mass ratio] 33.6 mg/mg High 10 - 20 [facility] has implemented the eGFR calculation approach that does not have a coefficient for race that conforms to the NKF-ASN Task Force Recommendations. [facility] TSH DL <= 0.005 mIU/L Qnon 0 04-21-2022 Interpretation and review of laboratory results Normal [facility] TSH Qn 1.32 m[IU]/L [facility] US Renal and Bladderon 04-21 1. No hydronephrosis. 2. Splenomegaly. Workstation ID: [id number] link bird EXAMINATION: US RENAL AND BLADDER HISTORY: ORDERING SYSTEM PROVIDED HISTORY: MARLENE, TECHNOLOGIST PROVIDED HISTORY: Illness/Other Reason for exam: MARLENE Cancer History: unknown Surgery, RadiationHistory: unknown Encounter Type: Initial Additional signs and symptoms: none ORDERING SYSTEM PROVIDED DIAGNOSIS CODES: L03.119 Cellulitis of lower extremity, unspecified laterality N17.9 MARLENE (acute kidney injury) (HCC) I95.9 Hypotension, unspecified hypotension type E86.0 Dehydration R60.9 Peripheral edema W19.XXXA Fall COMPARISON: None. TECHNIQUE: Ultrasound examination of the kidneys and urinary bladder was performed using Color Doppler. FINDINGS: The right kidney is normal in cortical echogenicity and corticomedullary differentiation without cortical thinning. The right kidney is normal in size measuring 11.4 cm in length. There is no focal renal mass or calcification. There is no hydronephrosis. The left kidney is normal in cortical echogenicity and corticomedullary differentiation without cortical thinning. The left kidney is normal in size measuring 13.2 cm in length. There is no focal renal mass or calcification. There is no hydronephrosis. The urinary bladder is partially distended and demonstrates normal contour and wall thickness without focal abnormality. The bilateral ureteral jets are identified. The spleen is enlarged measuring up to 20.8 cm. SMIC RIS Rodolfo Garcia MD - 04/21/2022 EXAMINATION: US RENAL AND BLADDER HISTORY: ORDERING SYSTEM PROVIDED HISTORY: MARLENE, TECHNOLOGIST PROVIDED HISTORY: Illness/Other Reason for exam: MARLENE Cancer History: unknown Surgery, RadiationHistory: unknown Encounter Type: Initial Additional signs and symptoms: none ORDERING SYSTEM PROVIDED DIAGNOSIS CODES: L03.119 Cellulitis of lower extremity, unspecified laterality N17.9 MARLENE (acute kidney injury) ([facility]) I95.9 Hypotension, unspecified hypotension type E86.0 Dehydration R60.9 Peripheral edema W19.XXXA Fall COMPARISON: None. TECHNIQUE: Ultrasound examination of the kidneys and urinary bladder was performed using Color Doppler. FINDINGS: The right kidney is normal in cortical echogenicity and corticomedullary differentiation without cortical thinning. The right kidney is normal in size measuring 11.4 cm in length. There is no focal renal mass or calcification. There is no hydronephrosis. The left kidney is normal in cortical echogenicity and corticomedullary differentiation without cortical thinning. The left kidney is normal in size measuring 13.2 cm in length. There is no focal renal mass or calcification. There is no hydronephrosis. The urinary bladder is partially distended and demonstrates normal contour and wall thickness without focal abnormality. The bilateral ureteral jets are identified. The spleen is enlarged measuring up to 20.8 cm. IMPRESSION: 1. No hydronephrosis. 2. Splenomegaly. Workstation ID: [id number] [facility] Renal and BladderOrdered By: Rodolfo Garcia on 04-21-2022 [facility] Work Phone: Ultrasound duplex venous leg s bilaton 04-21-2022 Patient Info Name: CARMEN GILMAN Age: 56 years : 1965 Gender: Male Exam Date: 04/21/2022 7:12 AM Patient Status: Inpatient Excellence Coach: Margi Lemon RVT Referring Physician: LINDA Owens; Indications R22.43 - Localized swelling, mass and lump, lower limb, bilateral Procedure Description 66872 Duplex examination using B-mode, color and spectral Doppler of extremity veins including responses to compression and other maneuvers; complete bilateral study. Conclusions * No evidence of deep or superficial vein thrombosis in the right or left lower extremities. * Unable to visualize compressions of left peroneal veins, however color fill was noted suggestive of patent veins. * Unable to visualize the right peroneal veins due to edema and body habitus. Risk Factors Pain, redness, cellulitis, s/p fall, COPD. Patient has a history of hypertension, diabetes and tobacco use-previous. . Report Signatures Finalized by DOC Menjivar DO on 04/21/2022 01:10 PM NoteleafI Accredible CV Luis Daniel Cao III, DO - 04/21/2022 Patient Info Name: CARMEN GILMAN Age: 56 years : 1965 Gender: Male Exam Date: 04/21/2022 7:12 AM Patient Status: Inpatient Excellence Coach: Margi Lemon RVT Referring Physician: LINDA Owens; Indications R22.43 - Localized swelling, mass and lump, lower limb, bilateral Procedure Description [id number] Duplex examination using B-mode, color and spectral Doppler of extremity veins including responses to compression and other maneuvers; complete bilateral study. Conclusions * No evidence of deep or superficial vein thrombosis in the right or left lower extremities. * Unable to visualize compressions of left peroneal veins, however color fill was noted suggestive of patent veins. * Unable to visualize the right peroneal veins due to edema and body habitus. Risk Factors Pain, redness, cellulitis, s/p fall, COPD. Patient has a history of hypertension, diabetes and tobacco use-previous. . Report Signatures Finalized by DOC Menjivar DO on 04/21/2022 01:10 PM [facility] Radiology Study observation (narrative) [facility] Ultrasound duplex venous leg s bilatOrdered By: Luis Daniel Cao on 04-21-2022 [facility] Work Phone: UrinalysisOrdered By: David Vines on 04-21-2022 Bacteria Auto Ql (U) None Seen None Se en /hpf [facility] Bilirubin Ql (U) Negative Negative [facility] th Clarity Refractometry automated (U) Clear Clear [facility] Color (U) Yellow Colorless, Yellow [facility] Glucose Auto test strip (U) [Mass/Vol] Negative Negative mg/dL [facility] Hemoglobin Auto test strip Ql (U) Negative Negative [facility] Interpretation and review of laboratory results Normal [facility] Ketones (U) [Mass/Vol] Negative Negative mg/dL [facility] Leukocyte esterase Auto test strip Ql (U) Negative Negative [facility] Mucus Auto (Urine sed) [#/Area] Rare None Seen, Rare /lpf [facility] Nitrite Auto test strip Ql (U) Negative Negative [facility] pH (U) 6.0 [pH] 5 - 7 [facility] Protein (U) [Mass/Vol] Negative Negative mg/dL [facility] RBC Auto (Urine sed) [#/Area] 1 [facility] Specific gravity (U) [Rel density] 1.014 1.005 - 1.025 [facility] Urobilinogen (U) [Mass/Vol] mg/dL NINF - 2.0 mg/dL [facility] WBC Auto (Urine sed) [#/Area] 1 [facility] Microscopic examinat ion is performed on all urinalysis samples and only positive findings are reported. The test for blood on the chemical analytic portion of urinalysis may also be positive due to hemoglobinuria and myoglobinuria and if red blood cells are present they are quantified by microscopic examination. [facility] XR Chest 1 Viewon 04-21-2022 No acute cardiopulmonary process. [employer] Workstation ID: [id number] link bird EXAMINATION: XR CHEST PA/AP 04/20/2022 2:55 pm HISTORY: ORDERING SYSTEM PROVIDED HISTORY: hypotension, TECHNOLOGIST PROVIDED HISTORY: Illness/Other Reason for exam: hypotension Cancer History: " Surgery, RadiationHistory: unk Encounter Type: Initial Additional signs and symptoms: bilateral leg swelling ORDERING SYSTEM PROVIDED DIAGNOSIS CODES: N17.9 MARLENE (acute kidney injury) (HCC) COMPARISON: Chest x-ray November 12, 2021. TECHNIQUE: Single portable semi-erect view. FINDINGS: The lungs appear clear with no pneumothorax, focal airspace consolidation or sizable pleural effusion. Cardiac silhouette and mediastinal contours are stable within normal limits. 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 link bird Radames Villarreal Ala, DO - 04/21/2022 EXAMINATION: XR CHEST PA/AP 04/20/2022 2:55 pm HISTORY: ORDERING SYSTEM PROVIDED HISTORY: hypotension, TECHNOLOGIST PROVIDED HISTORY: Illness/Other Reason for exam: hypotension Cancer History: " Surgery, RadiationHistory: unk Encounter Type: Initial Additional signs and symptoms: bilateral leg swelling ORDERING SYSTEM PROVIDED DIAGNOSIS CODES: N17.9 MARLENE (acute kidney injury) (HCC) COMPARISON: Chest x-ray November 12, 2021. TECHNIQUE: Single portable semi-erect view. FINDINGS: The lungs appear clear with no pneumothorax, focal airspace consolidation or sizable pleural effusion. Cardiac silhouette and mediastinal contours are stable within normal limits. 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 IMPRESSION: No acute cardiopulmonary process. [employer] Workstation ID: [id number] [facility] XR Chest 1 ViewOrdered By: Sandra Villarreal on 04-21-2022 [facility] Work Phone: XR Pelvis 1 View (Standard)o n 04-21-2022 No acute osseous abnormality of the pelvis is identified. [employer] Workstation ID: [id number] link bird EXAMINATION: XR PELVIS 1 VIEW (STANDARD) 04/20/2022 2:55 pm HISTORY: ORDERING SYSTEM PROVIDED HISTORY: fall, TECHNOLOGIST PROVIDED HISTORY: Injury/Trauma Reason for exam: fall Cancer History: " Surgery, RadiationHistory: unk Encounter Type: Initial Mechanism of injury: fall ORDERING SYSTEM PROVIDED DIAGNOSIS CODES: N17.9 MARLENE (acute kidney injury) (HCC) COMPARISON: None. TECHNIQUE: AP view of the pelvis on 2 films. FINDINGS: Pelvic ring appears intact with no diastasis of the SI joints or pubic symphysis. Femoral heads are well seated in the acetabula. No acute fracture is visible. [facility] Radames Villarreal Ala, DO - 04/21/2022 EXAMINATION: XR PELVIS 1 VIEW (STANDARD) 04/20/2022 2:55 pm HISTORY: ORDERING SYSTEM PROVIDED HISTORY: fall, TECHNOLOGIST PROVIDED HISTORY: Injury/Trauma Reason for exam: fall Cancer History: " Surgery, RadiationHistory: unk Encounter Type: Initial Mechanism of injury: fall ORDERING SYSTEM PROVIDED DIAGNOSIS CODES: N17.9 MARLENE (acute kidney injury) (HCC) COMPARISON: None. TECHNIQUE: AP view of the pelvis on 2 films. FINDINGS: Pelvic ring appears intact with no diastasis of the SI joints or pubic symphysis. Femoral heads are well seated in the acetabula. No acute fracture is visible. IMPRESSION: No acute osseous abnormality of the pelvis is identified. [employer] Workstation ID: [id number] [facility] Alcohol, Medicalon 08-30-202 2 Ethanol [Mass/Vol] mg/dL NINF - 10 .00 mg/dL [facility] Comment on above: Alcohol cutoff: <10. 00 mg/dL = None Detected Basic metabolic 1998 panelon 04-20-2022 Anion gap [Moles/Vol] 10 mmol/L 10 - 20 mmol/L [facility] Chloride [Moles/Vol] 102 mmol/L 98 - 10 8 mmol/L [facility] Creatinine [Mass/Vol] 2.30 mg/dL High 0.50 - 1.30 mg/dL [facility] GFR/1.73 sq M.predicted CKD-EPI (S/P/Bld) [Vol rate/Area] 33 Low - PINF [facility] Comment on above: Estimated GFR was ca lculated using the 2020 CKD-EPI creatinine equation. Glucose [Mass/Vol] 111 mg/dL High 65 - 99 mg/dL [facility] HCO3 [Moles/Vol] 27 mmol/L 21 - 32 mmol/L [facility] Potassium [Moles/Vol] 5.0 mmol/L 3.5 - 5.1 mmol/L [facility] Sodium [Moles/Vol] 134 mmol/L Low 135 - 145 mmol/L [facility] Urea nitrogen [Mass/Vol] 71 mg/dL High 8 - 25 mg/dL [facility] Urea nitrogen/Creatinine [Mass ratio] 30.9 mg/mg High 10 - 20 [facility] has implemented the eGFR calculation approach that does not have a coefficient for race that conforms to the NKF-ASN Task Force Recommendations. [facility] CBC Auto Differentialon 03-24 Erythrocyte distribution width (RBC) [Entitic vol] 16.3 % High 11.6 - 14.8 % [facility] Hematocrit (Bld) [Volume fraction] 31.6 % Low 41 - 53 % [facility] Hemoglobin (Bld) [Mass/Vol] 10.0 g/dL Low 13.5 - 17.5 g/dL [facility] MCH (RBC) [Entitic mass] 21.7 pg Low 26 - 34 pg [facility] MCHC (RBC) [Mass/Vol] 31.6 g/dL 31 - 37 g/dL [facility] MCV (RBC) [Entitic vol] 68.7 fL Low 80 - 100 fL [facility] Nucleated RBC (Bld) [#/Vol] 0.00 10*3/uL [facility] Nucleated RBC/100 WBC (Bld) [Ratio] 0.0 % [facility] Platelets (Bld) [#/Vol] 102 10*3/uL Low [facility] RBC (Bld) [#/Vol] 4.60 10*6/uL [facility] WBC (Bld) [#/Vol] 3.28 10*3/uL Low [facility] CBC and Diff Morphologyon RBC morphology finding Nom (Bld) See Comment [facility] Comment on above: RBC Indices confirme d with manual peripheral smear review. EKGon 04-20-2022 Ordered by an unspec ified provider. [facility] EKG 12-leadon 04-20-2022 Carolina Solis MD 04/20/2022 3:15 PM EKG 12-lead Date/Time: 04/20/2022 3:15 PM Performed by: Carolina Solis MD Authorized by: Carolina Solis MD Interpreted by ED attending physician Comparison: not compared with previous ECG Rhythm: sinus rhythm BPM: 69 Conduction: conduction normal ST Segments: ST segments normal T Inversion: V2 normal SC interval normal QRS interval normal QT interval Clinical impression: non-specific ECG MUSE [facility] Ethanol [Mass/Vol]on 022 Interpretation and review of laboratory results Normal [facility] Hepatic function 2000 panelo n 04-20-2022 Albumin [Mass/Vol] 2.8 g/dL Low 3.2 - 5.2 g/dL [facility] ALP [Catalytic activity/Vol] 58 U/L 40 - 150 U/L [facility] ALT [Catalytic activity/Vol] 27 U/L 14 - 65 U/L [facility] AST [Catalytic activity/Vol] 30 U/L 0 - 45 U/L [facility] Bilirubin [Mass/Vol] 0.8 mg/dL 0 - 1.3 mg/dL [facility] Bilirubin.conjugated [Mass/Vol] 0.2 mg/dL 0 - 0.4 mg/dL [facility] Protein [Mass/Vol] 8.1 g/dL High 6 - 8 g/dL [facility] alth Lactate [Moles/Vol]on 2021 Interpretation and review of laboratory results Normal [facility] Lactic Acid, Plasmaon 2021 Lactate [Moles/Vol] 1.2 mmol/L 0.6 - 2 mmol/L [facility] Manual Differential panel (B ld)on 04-20-2022 Basophils (Bld) [#/Vol] 0.00 10*3/uL [facility] Basophils/100 WBC (Bld) 0.0 % [facility] Eosinophils (Bld) [#/Vol] 0.03 10*3/uL [facility] Eosinophils/100 WBC (Bld) 0.9 % [facility] Lymphocytes (Bld) [#/Vol] 0.60 10*3/uL Low [facility] Lymphocytes/100 WBC (Bld) 18.3 % [facility] Monocytes (Bld) [#/Vol] 0.26 10*3/uL Low [facility] Monocytes/100 WBC (Bld) 7.8 % [facility] Neutrophils (Bld) [#/Vol] 2.39 10*3/uL [facility] Neutrophils/100 WBC (Bld) 73.0 % [facility] NT Pro BNPon 04-20-2022 Natriuretic peptide.B prohormone N-Terminal [Mass/Vol] 106 pg/mL 0 - 300 pg/mL [facility] Natriuretic peptide.B prohor randi N-Terminal [Mass/Vol]on 04-20-2022 Interpretation and review of laboratory results Normal [facility] Pride Study Cut-offs Rule In: < /= 50 Years >450 pg/mL 51 Years - 75 Years >900 pg/mL 76 Years - 99 Years >1800 pg/mL Rule Out: All patients <300 pg/mL [facility] No Panel Informationon 04-20 [facility] Interpretation and review of laboratory results Abnormal [facility] Interpretation and review of laboratory results Abnormal [facility] Obtain VBG and performon [facility] POC Venous Blood Gas Panel-P ulmon 04-20-2022 Base excess Calc (BldV) [Moles/Vol] 1.3 mmol/L -2 - 2 [facility] CO2 (BldV) [Partial pressure] 49.3 mm[Hg] [facility] HCO3 (Bld) [Moles/Vol] 27.4 mmol/L 24 - 28 mmol/L [facility] Hematocrit (BldA) [Volume fraction] 30.0 % Low 41 - 53 % [facility] Hemoglobin (Bld) [Mass/Vol] 9.8 g/dL Low 13.5 - 17.5 g/dL [facility] Inhaled oxygen concentration 21 % [facility] Interpretation and review of laboratory results Abnormal [facility] Oxygen (BldV) [Partial pressure] 65 mm[Hg] High [facility] Oxygen saturation in Venous blood 91.9 % High 40 - 70 % [facility] pH (BldV) 7.35 [pH] 7.32 - 7.42 [facility] Specimen source Nom (Unsp spec) Not specified [facility] Base excess Calc (BldV) [Moles/Vol] 1.4 mmol/L -2 - 2 [facility] CO2 (BldV) [Partial pressure] 49.4 mm[Hg] [facility] HCO3 (Bld) [Moles/Vol] 27.5 mmol/L 24 - 28 mmol/L [facility] Hematocrit (BldA) [Volume fraction] 30.8 % Low 41 - 53 % [facility] Hemoglobin (Bld) [Mass/Vol] 10.1 g/dL Low 13.5 - 17.5 g/dL [facility] Inhaled oxygen concentration 21 % [facility] Interpretation and review of laboratory results Abnormal [facility] Oxygen (BldV) [Partial pressure] 63 mm[Hg] High [facility] Oxygen saturation in Venous blood 91.1 % High 40 - 70 % [facility] pH (BldV) 7.35 [pH] 7.32 - 7.42 [facility] Troponinon 04-20-2022 Delta Difference Troponin I 0 ng/L < -/+ 12 change [facility] Troponin I Delta Change No biomarker evidence of cardiac injury. [facility] Troponin I 3 ng/L NINF - 59 ng/L [facility] Delta Difference Troponin I ng/L < -/+ 12 change ng/L [facility] Troponin I Delta Change No biomarker evidence of cardiac injury. [facility] Troponin I ng/L NINF - 59 ng/L [facility] Troponin x 2 (Now and Repeat in 3 hours)on 04-20-2022 Delta Difference Troponin I ng/L < -/+ 12 change ng/L [facility] Troponin I Delta Change No biomarker evidence of cardiac injury. [facility] Troponin I ng/L NINF - 59 ng/L [facility] Troponin I 3 ng/L NINF - 59 ng/L [facility] Troponin I Interpretation Normal [facility] US Renal and Bladderon 04-20 Radiology Study observation (narrative) [facility] UrinalysisOrdered By: Kathleen Nick on 04-20-2022 Bacteria Auto Ql (U) None Seen None Se en /hpf [facility] Bilirubin Ql (U) Negative Negative [facility] th Clarity Refractometry automated (U) Clear Clear [facility] Color (U) Yellow Colorless, Yellow [facility] Glucose Auto test strip (U) [Mass/Vol] Negative Negative mg/dL [facility] Hemoglobin Auto test strip Ql (U) Negative Negative [facility] Interpretation and review of laboratory results Normal [facility] Ketones (U) [Mass/Vol] Negative Negative mg/dL [facility] Leukocyte esterase Auto test strip Ql (U) Negative Negative [facility] Mucus Auto (Urine sed) [#/Area] Rare None Seen, Rare /lpf [facility] Nitrite Auto test strip Ql (U) Negative Negative [facility] pH (U) 5.5 [pH] 5 - 7 [facility] Protein (U) [Mass/Vol] Negative Negative mg/dL [facility] RBC Auto (Urine sed) [#/Area] [facility] Specific gravity (U) [Rel density] 1.010 1.005 - 1.025 [facility] Urobilinogen (U) [Mass/Vol] mg/dL NINF - 2.0 mg/dL [facility] WBC Auto (Urine sed) [#/Area] [facility] Microscopic examinat ion is performed on all urinalysis samples and only positive findings are reported. The test for blood on the chemical analytic portion of urinalysis may also be positive due to hemoglobinuria and myoglobinuria and if red blood cells are present they are quantified by microscopic examination. [facility] Urine Drug Screenon 04-20-20 22 Amphetamines Ql (U) Not detected None Detected [facility] Comment on above: Urine Amphetamine Cu toff: < 1000 ng/mL = None Detected Barbiturates Screen Ql (U) Not detected None Detected [facility] Comment on above: Urine Barbiturates C utoff: < 200 ng/mL = None Detected Benzodiazepines Ql (U) Positive Abnormal None Detected [facility] Comment on above: Urine Benzodiazepine Cutoff: < 200 ng/mL = None Detected Buprenorphine Ql (U) Positive Abnormal None Detected [facility] Comment on above: Urine Buprenorphine Cutoff: < 5 ng/mL = None Detected Cannabinoids Screen Ql (U) Not detected None Detected [facility] Comment on above: Urine Cannabinoids C utoff: < 50 ng/mL = None Detected Cocaine Ql (U) Positive Abnormal None Detected [facility] Comment on above: Urine Cocaine Cutoff : < 300 ng/mL = None Detected fentaNYL+Norfentanyl Screen Ql (U) Not detected None Detected [facility] Comment on above: Urine Fentanyl Cutof f: < 1 ng/mL = None Detected Interpretation and review of laboratory results Abnormal [facility] Methadone Screen Ql (U) Not detected None Detected [facility] Comment on above: Urine Methadone Cuto ff: < 300 ng/mL = None Detected Opiates Screen Ql (U) Not detected None Detected [facility] Comment on above: Urine Opiates Cutoff : < 300 ng/mL = None Detected oxyCODONE Ql (U) Not detected None Detected [facility] Comment on above: Urine Oxycodone Cuto ff: < 100 ng/mL = None Detected Specimen will be kep t for 1 week, if the sample is adequate. Confirmation testing can be initiated by calling the lab within 1 week. Screen results should be used for treatment purposes only. [facility] XR Chest 1 Viewon 04-20-2022 Radiology Study observation (narrative) [facility] XR Knee Left 2 Views (Standa rd)on 04-20-2022 Radiology Study observation (narrative) [facility] XR Knee Right 2 Views (Stand no)on 04-20-2022 Radiology Study observation (narrative) [facility] XR Pelvis 1 View (Standard)o n 04-20-2022 Radiology Study observation (narrative) [facility] ALCOHOL (ETHANOL),BLOODon Ethanol [Mass/Vol] mg/dL [facility] Comment on above: INTOXICATION >80 MG/DL FATAL >400 MG/DL C REACTIVE PROTEINon 022 CRP [Mass/Vol] 39.4 mg/L High 0 - 10.0 MG/L [facility] Interpretation and review of laboratory results Abnormal [facility] CBC, EDIF, PLATELETon 2021 ABSOLUTE BASOPHIL COUNT 0.0 10*3/uL 0.0 - 0.2 10*3/uL [facility] Basophils/100 WBC (Bld) 0.8 % 0.0 - 2.0 % [facility] Differential cell count method Nom (Bld) AUTO DIFF % [facility] Eosinophils (Bld) [#/Vol] 0.00 10*3/uL 0.0 - 0.7 10*3/uL [facility] Eosinophils/100 WBC (Bld) 1.3 % 0.0 - 11.0 % [facility] Erythrocyte distribution width (RBC) [Ratio] 15.9 % High 11.5 - 14.5 % [facility] Hematocrit (Bld) [Volume fraction] 35.0 % Low 42.0 - 52.0 % [facility] Hemoglobin (Bld) [Mass/Vol] 11.0 g/dL Low [facility] Interpretation and review of laboratory results Abnormal [facility] Lymphocytes (Bld) [#/Vol] 0.80 10*3/uL Low 1.2 - 3.4 10*3/uL [facility] Lymphocytes/100 WBC (Bld) 20.4 % 20.0 - 55.0 % [facility] MCH (RBC) [Entitic mass] 21.8 pg Low 26.0 - 35.0 PG [facility] MCHC (RBC) [Mass/Vol] 31.3 g/dL [facility] MCV (RBC) [Entitic vol] 69.6 fL Low [facility] Monocytes (Bld) [#/Vol] 0.5 10*3/uL 0.0 - 0.7 10*3/uL [facility] Monocytes/100 WBC (Bld) 13.0 % High 0.0 - 10.0 % [facility] Neutrophils (Bld) [#/Vol] 2.4 10*3/uL 1.4 - 6.5 10*3/uL [facility] Neutrophils/100 WBC (Bld) 64.5 % 37.0 - 75.0 % [facility] Platelet mean volume (Bld) [Entitic vol] 8.2 fL [facility] Platelets (Bld) [#/Vol] 122 10*3/uL Low 130.0 - 400.0 10*3/uL [facility] RBC (Bld) [#/Vol] 5.03 10*6/uL 4.0 - 6.1 10*6/uL [facility] WBC (Bld) [#/Vol] 3.8 10*3/uL 3.6 - 11.0 10*3/uL [facility] COMPREHENSIVE METABOLIC PANE Ras 03-07-2022 Albumin [Mass/Vol] 3.0 G/dl Low 3.5 - 5.0 G/dl [facility] Albumin/Globulin [Mass ratio] 0.7 {ratio} Low [facility] ALP [Catalytic activity/Vol] 45 U/L [facility] ALT [Catalytic activity/Vol] 20 U/L [facility] AST [Catalytic activity/Vol] 34 U/L [facility] Bilirubin [Mass/Vol] 1.4 mg/dL High [facility] Calcium [Mass/Vol] 8.2 mg/dL Low [facility] Chloride [Moles/Vol] 87 mmol/L Low [facility] CO2 [Moles/Vol] 38 mmol/L High [facility] Creatinine [Mass/Vol] 0.82 mg/dL [facility] GFR COMMENT Average GFR for 50-5 9 years old = 93. [facility] Comment on above: Chronic Kidney disea se, GFR = <60. Kidney failure, GFR = <15. The GFR estimate is not adjusted for extreme body surface area or acute process, nor has it been validated for women or ethnic groups other than and . GFR/1.73 sq M.predicted among blacks MDRD (S/P/Bld) [Vol rate/Area] 125 mL/min/{1.73_m2} ml/min/1.73s q.m [facility] GFR/1.73 sq M.predicted among non-blacks MDRD (S/P/Bld) [Vol rate/Area] 104 mL/min/{1.73_m2} ml/min/1.73s q.m [facility] Glucose post fast [Mass/Vol] 148 mg/dL High [facility] Comment on above: NORMAL <100 mg/dL PREDIABETES 101-126 mg/dL DIABETES 126 mg/dL or higher Interpretation and review of laboratory results Abnormal [facility] Potassium [Moles/Vol] 3.4 mmol/L Low [facility] Protein [Mass/Vol] 7.6 g/dL [facility] Sodium [Moles/Vol] 132 mmol/L Low [facility] Urea nitrogen [Mass/Vol] 12 mg/dL [facility] LACTATE, BLOODon 03-07-2022 Lactate [Moles/Vol] 1.5 mmol/L 0.7 - 2. 0 mmol/L [facility] No Panel Informationon 03-07 [facility] PROTIME-INRon 03-07-2022 INR Coag (PPP) [Relative time] 1.22 {INR} High [facility] Comment on above: 2.0-3.0 THERAPEUTIC RANGE 2.5-3.5 MECHANICAL VALVE RANGE Interpretation and review of laboratory results Abnormal [employer] PT Coag (PPP) [Time] 15.5 s [facility] PTTon 03-07-2022 aPTT Coag (Bld) [Time] 32.5 s [employer] Comment on above: CARDIAC AND PE/DVT THERAPUTIC RANGE 69-97 SEC VASCULAR/THREATENED LIMB THERAPUTIC RANGE 80-112 SEC [employer] [facility] SEDIMENTATION RATE, AUTOMATE Don 03-07-2022 ESR (Bld) [Velocity] 118 mm/h [facility] [employer] Interpretation and review of laboratory results Abnormal [facility] XR Tibia and Fibula - right Viewson 03-07-2022 IMPRESSION: 1. Generalized lower extremity edema likely cellulitis with posterior lower calf ulceration measuring 3.1 cm. No subcutaneous emphysema or suspicious osseous abnormality. 2. Severe pes planus and degenerative change similar to the prior study of the forefoot. 3. Total knee arthroplasty. Bone scan is a more sensitive modality for the evaluation of acute osteomyelitis. RADIOLOGY EXAM: XR TIBIA AND F IBULA RIGHT HISTORY: cellulitis, ulceration COMPARISON: Right foot x-ray performed 11/14/2021. Right ankle x-ray performed 03/31/2018. TECHNIQUE: AP and lateral views of the right tibia and fibula are obtained. FINDINGS: The soft tissue swelling and subcutaneous edema is present. Posterior ulceration at the distal calf is present measuring 3.1 cm. No subcutaneous emphysema. Osseous mineralization is within normal limits. No acute fracture, dislocation or aggressive osseous abnormality identified. Total knee interplasty changes present. Severe pes planus with degenerative change appears stable from the prior study with dorsal spurring. RADIOLOGY Connie Madden MD - 03/07/2022 EXAM: XR TIBIA AND FIBULA RIGHT HISTORY: cellulitis, ulceration COMPARISON: Right foot x-ray performed 11/14/2021. Right ankle x-ray performed 03/31/2018. TECHNIQUE: AP and lateral views of the right tibia and fibula are obtained. FINDINGS: The soft tissue swelling and subcutaneous edema is present. Posterior ulceration at the distal calf is present measuring 3.1 cm. No subcutaneous emphysema. Osseous mineralization is within normal limits. No acute fracture, dislocation or aggressive osseous abnormality identified. Total knee interplasty changes present. Severe pes planus with degenerative change appears stable from the prior study with dorsal spurring. IMPRESSION IMPRESSION: 1. Generalized lower extremity edema likely cellulitis with posterior lower calf ulceration measuring 3.1 cm. No subcutaneous emphysema or suspicious osseous abnormality. 2. Severe pes planus and degenerative change similar to the prior study of the forefoot. 3. Total knee arthroplasty. Bone scan is a more sensitive modality for the evaluation of acute osteomyelitis. [facility] Radiology Study observation (narrative) [facility] Fibula - right ViewsOrdered By: Connie Madden on 03-07-2022 [facility] Work Phone: ISSAC MULTIPLEX SCRN WITH REFL EXon 11-15-2021 Nuclear Ab Ql (S) Negative [facility] Comment on above: Reference range: Neg ative PERFORMED AT [facility] B12 & FOLATEon 11-15-2021 Cobalamin (Vitamin B12) [Mass/Vol] 303 pg/mL 180 - 914 PG/ML [facility] Folate [Mass/Vol] 14.3 ng/mL >5.9 NG/ML [facility] C REACTIVE PROTEINon 022 CRP [Mass/Vol] 18.0 mg/L High 0 - 10.0 MG/L [facility] CBC, EDIF, PLATELETon 2021 ABSOLUTE BASOPHIL COUNT 0.0 10*3/uL 0.0 - 0.2 10*3/uL [facility] Basophils/100 WBC (Bld) 0.2 % 0.0 - 2.0 % [facility] Differential cell count method Nom (Bld) AUTO DIFF % [facility] Eosinophils (Bld) [#/Vol] 0.10 10*3/uL 0.0 - 0.7 10*3/uL [facility] Eosinophils/100 WBC (Bld) 2.9 % 0.0 - 11.0 % [facility] Erythrocyte distribution width (RBC) [Ratio] 15.8 % High 11.5 - 14.5 % [facility] Hematocrit (Bld) [Volume fraction] 30.4 % Low 42.0 - 52.0 % [facility] Hemoglobin (Bld) [Mass/Vol] 9.7 g/dL Low [facility] Interpretation and review of laboratory results Abnormal [facility] Lymphocytes (Bld) [#/Vol] 0.60 10*3/uL Low 1.2 - 3.4 10*3/uL [facility] Lymphocytes/100 WBC (Bld) 27.4 % 20.0 - 55.0 % [facility] MCH (RBC) [Entitic mass] 22.0 pg Low 26.0 - 35.0 PG [facility] MCHC (RBC) [Mass/Vol] 32.0 g/dL [facility] MCV (RBC) [Entitic vol] 68.7 fL Low [facility] Monocytes (Bld) [#/Vol] 0.2 10*3/uL 0.0 - 0.7 10*3/uL [facility] Monocytes/100 WBC (Bld) 9.9 % 0.0 - 10.0 % [facility] Neutrophils (Bld) [#/Vol] 1.4 10*3/uL 1.4 - 6.5 10*3/uL [facility] Neutrophils/100 WBC (Bld) 59.6 % 37.0 - 75.0 % [facility] Platelet mean volume (Bld) [Entitic vol] 8.5 fL [facility] Platelets (Bld) [#/Vol] 109 10*3/uL Low 130.0 - 400.0 10*3/uL [facility] RBC (Bld) [#/Vol] 4.42 10*6/uL 4.0 - 6.1 10*6/uL [facility] WBC (Bld) [#/Vol] 2.3 10*3/uL Low 3.6 - 11.0 10*3/uL [facility] DIRECT ANTIGLOBULIN TEST (DA T)on 11-15-2021 Direct antiglobulin test.poly specific reagent Ql (RBC) Negative [facility] FERRITINon 11-15-2021 Ferritin [Mass/Vol] 230 ng/mL [facility] HEPATIC FUNCTION PANELon Albumin [Mass/Vol] 4.3 g/dL [facility] ALP [Catalytic activity/Vol] 31 U/L Low [facility] ALT [Catalytic activity/Vol] 31 U/L [facility] AST [Catalytic activity/Vol] 40 U/L [facility] Bilirubin [Mass/Vol] 1.4 mg/dL High [facility] Bilirubin.direct [Mass/Vol] 0.3 mg/dL High [facility] Protein [Mass/Vol] 7.2 g/dL [facility] IRON/IRON BINDING/TRANSFERRI Non 11-15-2021 Iron [Mass/Vol] 89 ug/dL [facility] Iron binding capacity [Mass/Vol] 190 Low [facility] Iron saturation [Mass fraction] 47 % [facility] MAGNESIUMon 11-15-2021 Magnesium [Mass/Vol] 1.6 mg/dL [facility] No Panel Informationon 11-15 [facility] Interpretation and review of laboratory results Abnormal [facility] PROTIME-INRon 11-15-2021 INR Coag (PPP) [Relative time] 1.21 {INR} High [facility] Comment on above: 2.0-3.0 THERAPEUTIC RANGE 2.5-3.5 MECHANICAL VALVE RANGE Interpretation and review of laboratory results Abnormal [facility] PT Coag (PPP) [Time] 15.4 s [facility] RENAL FUNCTION PANELon 11-15 Albumin [Mass/Vol] 4.3 G/dl 3.5 - 5.0 G/dl [facility] Calcium [Mass/Vol] 9.7 mg/dL [facility] Chloride [Moles/Vol] 95 mmol/L Low [facility] CO2 [Moles/Vol] 29 mmol/L [facility] Creatinine [Mass/Vol] 0.68 mg/dL [facility] GFR COMMENT Average GFR for 50-5 9 years old = 93. [facility] Comment on above: Chronic Kidney disea se, GFR = <60. Kidney failure, GFR = <15. The GFR estimate is not adjusted for extreme body surface area or acute process, nor has it been validated for women or ethnic groups other than and . GFR/1.73 sq M.predicted among blacks MDRD (S/P/Bld) [Vol rate/Area] 156 mL/min/{1.73_m2} ml/min/1.73s q.m [facility] GFR/1.73 sq M.predicted among non-blacks MDRD (S/P/Bld) [Vol rate/Area] 129 mL/min/{1.73_m2} ml/min/1.73s q.m [facility] Glucose post fast [Mass/Vol] 94 mg/dL [facility] Comment on above: NORMAL <100 mg/dL PREDIABETES 101-126 mg/dL DIABETES 126 mg/dL or higher Interpretation and review of laboratory results Abnormal [facility] Phosphate [Mass/Vol] 3.9 mg/dL [facility] Potassium [Moles/Vol] 3.6 mmol/L [facility] Sodium [Moles/Vol] 137 mmol/L [facility] Urea nitrogen [Mass/Vol] 23 mg/dL High [facility] SEDIMENTATION RATE, AUTOMATE Don 11-15-2021 ESR (Bld) [Velocity] 25 mm/h High [facility] Interpretation and review of laboratory results Abnormal [facility] ISSAC MULTIPLEX SCRN WITH REFL EXon 11-14-2021 Nuclear Ab Ql (S) Negative [facility] Comment on above: Reference range: Neg ative PERFORMED AT [facility] C REACTIVE PROTEINon 022 CRP [Mass/Vol] 19.7 mg/L High 0 - 10.0 MG/L [facility] CBC, EDIF, PLATELETon 2021 ABSOLUTE BASOPHIL COUNT 0.0 10*3/uL 0.0 - 0.2 10*3/uL [facility] DIFFERENTIAL TYPE MANUAL DIFF % [facility] Comment on above: CORRECTED ON 11/14 A T 0734: PREVIOUSLY REPORTED AUTO DIFF Eosinophils (Bld) [#/Vol] 0.10 10*3/uL 0.0 - 0.7 10*3/uL [facility] Erythrocyte distribution width (RBC) [Ratio] 16.4 % High 11.5 - 14.5 % [facility] Hematocrit (Bld) [Volume fraction] 29.0 % Low 42.0 - 52.0 % [facility] Hemoglobin (Bld) [Mass/Vol] 9.3 g/dL Low [facility] Interpretation and review of laboratory results Abnormal [facility] Lymphocytes (Bld) [#/Vol] 0.60 10*3/uL Low 1.2 - 3.4 10*3/uL [facility] Lymphocytes/100 WBC (Bld) 44 % 20.0 - 55.0 % [facility] Comment on above: CORRECTED ON 11/14 A T 0734: PREVIOUSLY REPORTED 28.1 MCH (RBC) [Entitic mass] 22.2 pg Low 26.0 - 35.0 PG [facility] MCHC (RBC) [Mass/Vol] 32.2 g/dL [facility] MCV (RBC) [Entitic vol] 69.0 fL Low [facility] Monocytes (Bld) [#/Vol] 0.2 10*3/uL 0.0 - 0.7 10*3/uL [facility] Monocytes/100 WBC (Bld) 8 % 0.0 - 10.0 % [facility] Comment on above: CORRECTED ON 11/14 A T 0734: PREVIOUSLY REPORTED 7.9 Morphology Julián (Bld) [Interp] 2+ [facility] Comment on above: MICROCYTOSIS 2+ ANISOCYTE 1+ TARGET CELLS Neutrophils (Bld) [#/Vol] 1.4 10*3/uL 1.4 - 6.5 10*3/uL [facility] Neutrophils/100 WBC (Bld) 48 % 37.0 - 75.0 % [facility] Comment on above: CORRECTED ON 11/14 A T 0734: PREVIOUSLY REPORTED 61.2 Platelet mean volume (Bld) [Entitic vol] 9.0 fL [facility] Platelet morphology finding Nom (Bld) DECREASED [facility] Platelets (Bld) [#/Vol] 123 10*3/uL Low 130.0 - 400.0 10*3/uL [facility] RBC (Bld) [#/Vol] 4.20 10*6/uL 4.0 - 6.1 10*6/uL [facility] WBC (Bld) [#/Vol] 2.3 10*3/uL Low 3.6 - 11.0 10*3/uL [facility] CT Pulmonary arteries for pu lmonary emboluson 11-14-2021 IMPRESSION: 1. Suboptimal opacification of the pulmonary arterial system. No filling defect to the lobar level. No convincing segmental arterial filling defect although heterogeneous enhancement at this level is noted. 2. No focal airspace disease. 3. Cardiomegaly with left atrial enlargement. LAD calcifications. 4. Splenomegaly. RADIOLOGY EXAMINATION: CT PE S ANNEMARIE, 11/14/2021 9:07 AM MDT HISTORY: 56-year-old male with elevated d-dimer and shortness of breath TECHNIQUE: CT images from the lung apices through the upper abdomen were obtained per standard protocol with intravenous contrast. Sagittal and coronal reformats were also performed. Dose reduction techniques were achieved by using automated exposure control and/or adjustment of mA and/or kV according to patient size and/or use of iterative reconstruction technique. COMPARISON: Lower extremity ultrasound 11/13/2021 FINDINGS: Tubes and lines: None Pulmonary arteries: Suboptimal opacification of the pulmonary arterial system with opacification of the main pulmonary artery measuring 180 HU. No filling defect within the central pulmonary arteries to the lobar level. Heterogeneous opacification of the segmental arteries. Main pulmonary artery measures 3.2 cm. Lungs and Airways: Right middle lobe atelectasis versus scarring. Patent central airways. Pleura: No pleural effusion. No pneumothorax. Heart and Mediastinum: Cardiomegaly with left atrial enlargement. Single vessel coronary artery calcifications. No pericardial effusion. Atherosclerosis of the arch and its major branches. Upper Abdomen: Photon starvation and phase of enhancement limits evaluation of the upper abdomen. Probable splenomegaly. Scattered calcified atherosclerosis of the visualized abdominal aorta. Soft tissues: Bilateral gynecomastia. Bones: Severe degenerative changes of the left shoulder. Old right-sided posterior rib fracture. RADIOLOGY Leandro Rodriguez MD - 11/14/2021 EXAMINATION: CT PE STUDY, 11/14/2021 9:07 AM MDT HISTORY: 56-year-old male with elevated d-dimer and shortness of breath TECHNIQUE: CT images from the lung apices through the upper abdomen were obtained per standard protocol with intravenous contrast. Sagittal and coronal reformats were also performed. Dose reduction techniques were achieved by using automated exposure control and/or adjustment of mA and/or kV according to patient size and/or use of iterative reconstruction technique. COMPARISON: Lower extremity ultrasound 11/13/2021 FINDINGS: Tubes and lines: None Pulmonary arteries: Suboptimal opacification of the pulmonary arterial system with opacification of the main pulmonary artery measuring 180 HU. No filling defect within the central pulmonary arteries to the lobar level. Heterogeneous opacification of the segmental arteries. Main pulmonary artery measures 3.2 cm. Lungs and Airways: Right middle lobe atelectasis versus scarring. Patent central airways. Pleura: No pleural effusion. No pneumothorax. Heart and Mediastinum: Cardiomegaly with left atrial enlargement. Single vessel coronary artery calcifications. No pericardial effusion. Atherosclerosis of the arch and its major branches. Upper Abdomen: Photon starvation and phase of enhancement limits evaluation of the upper abdomen. Probable splenomegaly. Scattered calcified atherosclerosis of the visualized abdominal aorta. Soft tissues: Bilateral gynecomastia. Bones: Severe degenerative changes of the left shoulder. Old right-sided posterior rib fracture. IMPRESSION IMPRESSION: 1. Suboptimal opacification of the pulmonary arterial system. No filling defect to the lobar level. No convincing segmental arterial filling defect although heterogeneous enhancement at this level is noted. 2. No focal airspace disease. 3. Cardiomegaly with left atrial enlargement. LAD calcifications. 4. Splenomegaly. [facility] Radiology Study observation (narrative) [facility] CT Pulmonary arteries for pu lmonary embolusOrdered By: Leandro Rodriguez on 11-14-2021 [facility] Work Phone: FIBRINOGEN, CLOTTABLEon 10-21 Fibrinogen Coag (PPP) [Mass/Vol] 254.0 mg/dL 171 - 562 mg/dL [facility] HEPATIC FUNCTION PANELon Albumin [Mass/Vol] 4.1 g/dL [facility] ALP [Catalytic activity/Vol] 26 U/L Low [facility] ALT [Catalytic activity/Vol] 26 U/L [facility] AST [Catalytic activity/Vol] 30 U/L [facility] Bilirubin [Mass/Vol] 1.8 mg/dL High [facility] Bilirubin.direct [Mass/Vol] 0.3 mg/dL High [facility] Protein [Mass/Vol] 6.9 g/dL [facility] HEPATITIS A, B, Con 11-15-19 22 HBV surface Ag IA Ql Negative NEGATIVE [facility] Hep A AB (IGG + IGM) Positive Abnormal NEGATIVE [facility] Comment on above: Specimen is positive for HAV, sent to reference lab for HAVAb, IgM. Positive indicates a reactive sample and the presence of HAV Ab, individual has been previously infected or is presumed to be immune to HAV infection. HEP B CORE AB,TOTAL(IGG+IGM) Reactive Abnormal NEGATIVE [facility] Comment on above: Specimen is presumed reactive for HBc Ab Hep B Surf AB Negative Abnormal POSITIVE [facility] Comment on above: Clinical Interpretation of Immune Status Negative: patient is considered to be not immune to infection with HBV Intermediate: unable to determine if anti-HBs is present at levels consistent with immunity Positive: anti-HBs detected, patient is considered to be immune to infection with HBV HEP C AB Reactive Abnormal NEGATIVE [facility] Comment on above: HCV Ab IgG detected, patient is presumed to be infected, state or associated disease not determined Interpretation and review of laboratory results Abnormal [facility] MAGNESIUMon 11-14-2021 Magnesium [Mass/Vol] 1.9 mg/dL [facility] No Panel Informationon 11-14 Interpretation and review of laboratory results Abnormal [facility] PROCALCITONINon 11-14-2021 PROCALCITONIN 0.06 ng/mL 0.00 - 0.49 ng/mL [facility] Comment on above: PCT Interpretation Concentrations under 0.5 ng/mL do not exclude local infections of systemic infections in their initial stages (e.g. under six hours from onset of illness). PCT concentrations between 0.5 and 2.0 ng/mL should be interpreted with consideration of patient's history. In this range, it is recommended to retest PCT within 6 to 24 hours. Testing performed at [place], [place] [address] [facility] PROTIME-INRon 11-14-2021 INR Coag (PPP) [Relative time] 1.23 {INR} High [facility] Comment on above: 2.0-3.0 THERAPEUTIC RANGE 2.5-3.5 MECHANICAL VALVE RANGE Interpretation and review of laboratory results Abnormal [facility] PT Coag (PPP) [Time] 15.7 s [facility] RENAL FUNCTION PANELon 11-14 Albumin [Mass/Vol] 4.1 G/dl 3.5 - 5.0 G/dl [facility] Calcium [Mass/Vol] 8.9 mg/dL [facility] Chloride [Moles/Vol] 103 mmol/L [facility] CO2 [Moles/Vol] 25 mmol/L [facility] Creatinine [Mass/Vol] 0.58 mg/dL Low [facility] GFR COMMENT Average GFR for 50-5 9 years old = 93. [facility] Comment on above: Chronic Kidney disea se, GFR = <60. Kidney failure, GFR = <15. The GFR estimate is not adjusted for extreme body surface area or acute process, nor has it been validated for women or ethnic groups other than and . GFR/1.73 sq M.predicted among blacks MDRD (S/P/Bld) [Vol rate/Area] 187 mL/min/{1.73_m2} ml/min/1.73s q.m [facility] GFR/1.73 sq M.predicted among non-blacks MDRD (S/P/Bld) [Vol rate/Area] 155 mL/min/{1.73_m2} ml/min/1.73s q.m [facility] Glucose post fast [Mass/Vol] 94 mg/dL [facility] Comment on above: NORMAL <100 mg/dL PREDIABETES 101-126 mg/dL DIABETES 126 mg/dL or higher Interpretation and review of laboratory results Abnormal [facility] Phosphate [Mass/Vol] 2.9 mg/dL [facility] Potassium [Moles/Vol] 4.2 mmol/L [facility] Sodium [Moles/Vol] 136 mmol/L [facility] Urea nitrogen [Mass/Vol] 25 mg/dL High [facility] SEDIMENTATION RATE, AUTOMATE Don 11-14-2021 ESR (Bld) [Velocity] 15 mm/h [facility] URIC ACIDon 11-14-2021 Urate [Mass/Vol] 5.4 mg/dL [facility] XR Foot - right 3 Viewson IMPRESSION: 1. Soft tissue swelling throughout the imaged lower extremity of indeterminate etiology. No osseous erosion is seen. 2. Extensive degenerative changes throughout the forefoot which have mildly progressed as compared to 03/02/2018. RADIOLOGY EXAM: XR FOOT RIGHT 3 VIEWS COMPARISON: Right foot radiographs 03/02/2018 HISTORY: pain and edema FINDINGS: No fracture is seen. 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 There is slight lateral subluxation of the first metatarsophalangeal joint. Nonweightbearing alignment is otherwise unremarkable. Soft tissue swelling throughout the ankle and foot. Joint effusion is present. There is thickening of the Achilles tendon. RADIOLOGY Sofía Corral MD - 11/14/2021 EXAM: XR FOOT RIGHT 3 VIEWS COMPARISON: Right foot radiographs 03/02/2018 HISTORY: pain and edema FINDINGS: No fracture is seen. 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 There is slight lateral subluxation of the first metatarsophalangeal joint. Nonweightbearing alignment is otherwise unremarkable. Soft tissue swelling throughout the ankle and foot. Joint effusion is present. There is thickening of the Achilles tendon. IMPRESSION IMPRESSION: 1. Soft tissue swelling throughout the imaged lower extremity of indeterminate etiology. No osseous erosion is seen. 2. Extensive degenerative changes throughout the forefoot which have mildly progressed as compared to 03/02/2018. [facility] Radiology Study observation (narrative) [facility] XR Foot - right 3 ViewsOrder ed By: Sofía Corral on 11-14-2021 [facility] Work Phone: B-TYPE NATRIURETIC PEPTIDE ( BRAIN)on 11-13-2021 Natriuretic peptide B (Bld) [Mass/Vol] 72 pg/mL 0 - 100 pg/mL [facility] CBC, EDIF, PLATELETon 2021 ABSOLUTE BASOPHIL COUNT 0.0 10*3/uL 0.0 - 0.2 10*3/uL [facility] Basophils/100 WBC (Bld) 0 % 0.0 - 2.0 % [facility] Comment on above: CORRECTED ON 11/13 A T 1129: PREVIOUSLY REPORTED 0.3 Differential cell count method Nom (Bld) AUTO DIFF % [facility] Eosinophils (Bld) [#/Vol] 0.10 10*3/uL 0.0 - 0.7 10*3/uL [facility] Eosinophils/100 WBC (Bld) 2 % 0.0 - 11.0 % [facility] Comment on above: CORRECTED ON 11/13 A T 1129: PREVIOUSLY REPORTED 1.9 Erythrocyte distribution width (RBC) [Ratio] 16.1 % High 11.5 - 14.5 % [facility] Hematocrit (Bld) [Volume fraction] 31.2 % Low 42.0 - 52.0 % [facility] Hemoglobin (Bld) [Mass/Vol] 9.9 g/dL Low [facility] Interpretation and review of laboratory results Abnormal [facility] Lymphocytes (Bld) [#/Vol] 0.60 10*3/uL Low 1.2 - 3.4 10*3/uL [facility] Lymphocytes/100 WBC (Bld) 18 % Low 20.0 - 55.0 % [facility] Comment on above: CORRECTED ON 11/13 A T 1129: PREVIOUSLY REPORTED 18.4 MCH (RBC) [Entitic mass] 22.0 pg Low 26.0 - 35.0 PG [facility] MCHC (RBC) [Mass/Vol] 31.8 g/dL [facility] MCV (RBC) [Entitic vol] 69.4 fL Low [facility] Monocytes (Bld) [#/Vol] 0.3 10*3/uL 0.0 - 0.7 10*3/uL [facility] Monocytes/100 WBC (Bld) 11 % High 0.0 - 10.0 % [facility] Comment on above: CORRECTED ON 11/13 A T 1129: PREVIOUSLY REPORTED 10.6 Morphology Julián (Bld) [Interp] 1+ [facility] Comment on above: ANISOCYTE 1+ POIKILOCYTE 1+ TARGET CELLS 1+ MICROCYTOSIS Neutrophils (Bld) [#/Vol] 2.1 10*3/uL 1.4 - 6.5 10*3/uL [facility] Neutrophils/100 WBC (Bld) 69 % 37.0 - 75.0 % [facility] Comment on above: CORRECTED ON 11/13 A T 1129: PREVIOUSLY REPORTED 68.8 Platelet mean volume (Bld) [Entitic vol] 8.2 fL [facility] Platelet morphology finding Nom (Bld) DECREASED [facility] Platelets (Bld) [#/Vol] 101 10*3/uL Low 130.0 - 400.0 10*3/uL [facility] RBC (Bld) [#/Vol] 4.49 10*6/uL 4.0 - 6.1 10*6/uL [facility] WBC (Bld) [#/Vol] 3.0 10*3/uL Low 3.6 - 11.0 10*3/uL [facility] ABSOLUTE BASOPHIL COUNT 0.0 10*3/uL 0.0 - 0.2 10*3/uL [facility] Basophils/100 WBC (Bld) 0.3 % 0.0 - 2.0 % [facility] Differential cell count method Nom (Bld) AUTO DIFF % [facility] Eosinophils (Bld) [#/Vol] 0.10 10*3/uL 0.0 - 0.7 10*3/uL [facility] Eosinophils/100 WBC (Bld) 2.8 % 0.0 - 11.0 % [facility] Erythrocyte distribution width (RBC) [Ratio] 16.0 % High 11.5 - 14.5 % [facility] Hematocrit (Bld) [Volume fraction] 34.5 % Low 42.0 - 52.0 % [facility] Hemoglobin (Bld) [Mass/Vol] 10.9 g/dL Low [facility] Interpretation and review of laboratory results Abnormal [facility] Lymphocytes (Bld) [#/Vol] 0.80 10*3/uL Low 1.2 - 3.4 10*3/uL [facility] Lymphocytes/100 WBC (Bld) 25.2 % 20.0 - 55.0 % [facility] MCH (RBC) [Entitic mass] 22.1 pg Low 26.0 - 35.0 PG [facility] MCHC (RBC) [Mass/Vol] 31.6 g/dL [facility] MCV (RBC) [Entitic vol] 70.0 fL Low [facility] Monocytes (Bld) [#/Vol] 0.4 10*3/uL 0.0 - 0.7 10*3/uL [facility] Monocytes/100 WBC (Bld) 11.6 % High 0.0 - 10.0 % [facility] Neutrophils (Bld) [#/Vol] 2.0 10*3/uL 1.4 - 6.5 10*3/uL [facility] Neutrophils/100 WBC (Bld) 60.1 % 37.0 - 75.0 % [facility] Platelet mean volume (Bld) [Entitic vol] 8.4 fL [facility] Platelets (Bld) [#/Vol] 118 10*3/uL Low 130.0 - 400.0 10*3/uL [facility] RBC (Bld) [#/Vol] 4.93 10*6/uL 4.0 - 6.1 10*6/uL [facility] WBC (Bld) [#/Vol] 3.3 10*3/uL Low 3.6 - 11.0 10*3/uL [facility] CKon 11-13-2021 CK [Catalytic activity/Vol] 69 U/L [facility] COMPREHENSIVE METABOLIC PANE Ras 11-13-2021 Albumin [Mass/Vol] 3.5 G/dl 3.5 - 5.0 G/dl [facility] Albumin/Globulin [Mass ratio] 1.1 {ratio} Low [facility] ALP [Catalytic activity/Vol] 46 U/L [facility] ALT [Catalytic activity/Vol] 29 U/L [facility] AST [Catalytic activity/Vol] 29 U/L [facility] Bilirubin [Mass/Vol] 1.0 mg/dL [facility] Calcium [Mass/Vol] 8.4 mg/dL [facility] Chloride [Moles/Vol] 107 mmol/L [facility] CO2 [Moles/Vol] 26 mmol/L [facility] Creatinine [Mass/Vol] 1.12 mg/dL [facility] GFR COMMENT Average GFR for 50-5 9 years old = 93. [facility] Comment on above: Chronic Kidney disea se, GFR = <60. Kidney failure, GFR = <15. The GFR estimate is not adjusted for extreme body surface area or acute process, nor has it been validated for women or ethnic groups other than and . GFR/1.73 sq M.predicted among blacks MDRD (S/P/Bld) [Vol rate/Area] 88 mL/min/{1.73_m2} ml/min/1.73s q.m [facility] GFR/1.73 sq M.predicted among non-blacks MDRD (S/P/Bld) [Vol rate/Area] 72 mL/min/{1.73_m2} ml/min/1.73s q.m [facility] Glucose post fast [Mass/Vol] 143 mg/dL High [facility] Comment on above: NORMAL <100 mg/dL PREDIABETES 101-126 mg/dL DIABETES 126 mg/dL or higher Interpretation and review of laboratory results Abnormal [facility] Potassium [Moles/Vol] 4.2 mmol/L [facility] Protein [Mass/Vol] 6.7 g/dL [facility] Sodium [Moles/Vol] 140 mmol/L [facility] Urea nitrogen [Mass/Vol] 30 mg/dL High [facility] D-DIMER,QUANTITATIVEon 11-13 Fibrin D-dimer FEU (PPP) [Mass/Vol] 9.66 Critically high <0.50 mg/L FEU [facility] Comment on above: If result is greater than the cutoff value of 0.50 mg/L then the potential for PE or DVT exists. Other conditions exist which may cause a falsely elevated level. Please correlate clinically, including radiological findings and other clinical parameters. Result called to read back by: Sandra CANSECO 11/13/2021 @ 11:02 by [facility] Interpretation and review of laboratory results Abnormal [facility] MAGNESIUMon 11-13-2021 Magnesium [Mass/Vol] 2.1 mg/dL [facility] RHEUMATOID FACTORon 11-14-19 Interpretation and review of laboratory results Abnormal [facility] RHEUMATOID FACTOR 441.1 High <12 Iu/mL [facility] SCREEN: MRSA ONLY, NARES (IS OLATION SCREEN)on 11-13-2021 Interpretation and review of laboratory results Abnormal [facility] MRSA isol Org specific cx Ql (Nose) Not detected NOT DETECTED [facility] STAPHYOCOCCUS AUREUS BY PCR Detected Abnormal NOT DETECTED [facility] Comment on above: Testing performed at [place], [place] [address] [facility] US.doppler Extremity vessels - bilateralon 11-13-2021 IMPRESSION: No visualized venous thrombus RADIOLOGY EXAMINATION: US DUPL EX EXTREMITY DVT BILATERAL HISTORY: Bilateral lower extremity edema COMPARISON: None. TECHNIQUE: Venous duplex examination performed using B-mode, color flow and spectral analysis. FINDINGS: The bilateral lower extremity venous systems exhibit normal flow, phasicity, augmentation, compressibility and waveforms. The peroneal vessels are not visualized bilaterally secondary to patient's edema. RADIOLOGY Paulino Marcos, DO - 11/13/2021 EXAMINATION: US DUPLEX EXTREMITY DVT BILATERAL HISTORY: Bilateral lower extremity edema COMPARISON: None. TECHNIQUE: Venous duplex examination performed using B-mode, color flow and spectral analysis. FINDINGS: The bilateral lower extremity venous systems exhibit normal flow, phasicity, augmentation, compressibility and waveforms. The peroneal vessels are not visualized bilaterally secondary to patient's edema. IMPRESSION IMPRESSION: No visualized venous thrombus [facility] Radiology Study observation (narrative) [facility] ALCOHOL (ETHANOL),BLOODon Ethanol [Mass/Vol] mg/dL [facility] Comment on above: INTOXICATION >80 MG/DL FATAL >400 MG/DL CBC, EDIF, PLATELETon 2021 ABSOLUTE BASOPHIL COUNT 0.0 10*3/uL 0.0 - 0.2 10*3/uL [facility] Basophils/100 WBC (Bld) 0.5 % 0.0 - 2.0 % [facility] Differential cell count method Nom (Bld) AUTO DIFF % [facility] Eosinophils (Bld) [#/Vol] 0.10 10*3/uL 0.0 - 0.7 10*3/uL [facility] Eosinophils/100 WBC (Bld) 1.5 % 0.0 - 11.0 % [facility] Erythrocyte distribution width (RBC) [Ratio] 16.0 % High 11.5 - 14.5 % [facility] Hematocrit (Bld) [Volume fraction] 34.1 % Low 42.0 - 52.0 % [facility] Hemoglobin (Bld) [Mass/Vol] 11.0 g/dL Low [facility] Interpretation and review of laboratory results Abnormal [facility] Lymphocytes (Bld) [#/Vol] 1.10 10*3/uL Low 1.2 - 3.4 10*3/uL [facility] Lymphocytes/100 WBC (Bld) 16.4 % Low 20.0 - 55.0 % [facility] MCH (RBC) [Entitic mass] 22.2 pg Low 26.0 - 35.0 PG [facility] MCHC (RBC) [Mass/Vol] 32.3 g/dL [facility] MCV (RBC) [Entitic vol] 68.9 fL Low [facility] Monocytes (Bld) [#/Vol] 0.8 10*3/uL High 0.0 - 0.7 10*3/uL [facility] Monocytes/100 WBC (Bld) 13.1 % High 0.0 - 10.0 % [facility] Neutrophils (Bld) [#/Vol] 4.4 10*3/uL 1.4 - 6.5 10*3/uL [facility] Neutrophils/100 WBC (Bld) 68.5 % 37.0 - 75.0 % [facility] Platelet mean volume (Bld) [Entitic vol] 7.8 fL [facility] Platelets (Bld) [#/Vol] 146 10*3/uL 130.0 - 400.0 10*3/uL [facility] RBC (Bld) [#/Vol] 4.95 10*6/uL 4.0 - 6.1 10*6/uL [facility] WBC (Bld) [#/Vol] 6.5 10*3/uL 3.6 - 11.0 10*3/uL [facility] COMPREHENSIVE METABOLIC PANE Ras 11-12-2021 Albumin [Mass/Vol] 3.3 G/dl Low 3.5 - 5.0 G/dl [facility] Albumin/Globulin [Mass ratio] 0.9 {ratio} Low [facility] ALP [Catalytic activity/Vol] 46 U/L [facility] ALT [Catalytic activity/Vol] 32 U/L [facility] AST [Catalytic activity/Vol] 32 U/L [facility] Bilirubin [Mass/Vol] 0.9 mg/dL [facility] Calcium [Mass/Vol] 8.4 mg/dL [facility] Chloride [Moles/Vol] 98 mmol/L [facility] CO2 [Moles/Vol] 24 mmol/L [facility] Creatinine [Mass/Vol] 2.54 mg/dL High [facility] GFR COMMENT Average GFR for 50-5 9 years old = 93. [facility] Comment on above: Chronic Kidney disea se, GFR = <60. Kidney failure, GFR = <15. The GFR estimate is not adjusted for extreme body surface area or acute process, nor has it been validated for women or ethnic groups other than and . GFR/1.73 sq M.predicted among blacks MDRD (S/P/Bld) [Vol rate/Area] 34 mL/min/{1.73_m2} ml/min/1.73s q.m [facility] GFR/1.73 sq M.predicted among non-blacks MDRD (S/P/Bld) [Vol rate/Area] 28 mL/min/{1.73_m2} ml/min/1.73s q.m [facility] Glucose post fast [Mass/Vol] 133 mg/dL High [facility] Comment on above: NORMAL <100 mg/dL PREDIABETES 101-126 mg/dL DIABETES 126 mg/dL or higher Interpretation and review of laboratory results Abnormal [facility] Potassium [Moles/Vol] 4.2 mmol/L [facility] Protein [Mass/Vol] 7.0 g/dL [facility] Sodium [Moles/Vol] 131 mmol/L Low [facility] Urea nitrogen [Mass/Vol] 40 mg/dL High [facility] CT Abdomen and Pelvis WO con traston 11-12-2021 IMPRESSION: 1. Questionable peripancreatic mesenteric edema. Comparison with patient's laboratory values is recommended to evaluate for pancreatitis. RADIOLOGY EXAMINATION: CT ABDOMEN/PELVIS WITHOUT CONTRAST, 11/12/2021 8:48 PM EDT HISTORY: Acute abdominal pain COMPARISON: Lumbar spine x-rays 06/07/2014 TECHNIQUE: CT scan of the abdomen and pelvis was performed without IV contrast. Sagittal and coronal reformatted/reconstructed sequences were additionally performed. CT dose reduction technique was used, including Automated Exposure Control. FINDINGS: There are no visualized lower thoracic abnormalities. Questionable mesenteric edema adjacent to the pancreas. The nonenhanced liver, spleen, adrenal glands and gallbladder exhibit no gross visualized irregularity. The stomach is filled with food. No renal calcification, hydronephrosis or perinephric collection. No bowel obstruction, bowel wall thickening or peribowel inflammatory stranding. No discrete mesenteric collection, mass or irregularity on this nonenhanced study. Scattered atherosclerosis of the aorta and renal artery origins. No free pelvic fluid or air. No bladder calcification. The bladder is decompressed secondary to Tavera catheter. The superficial subcutaneous soft tissues are free of edema, hematoma, mass or cyst. Chronic irregularity of the L2 vertebral body that appears to represent a Schmorl's node. RADIOLOGY Paulino Marcos, DO - 11/12/2021 EXAMINATION: CT ABDOMEN/PELVIS WITHOUT CONTRAST, 11/12/2021 8:48 PM EDT HISTORY: Acute abdominal pain COMPARISON: Lumbar spine x-rays 06/07/2014 TECHNIQUE: CT scan of the abdomen and pelvis was performed without IV contrast. Sagittal and coronal reformatted/reconstructed sequences were additionally performed. CT dose reduction technique was used, including Automated Exposure Control. FINDINGS: There are no visualized lower thoracic abnormalities. Questionable mesenteric edema adjacent to the pancreas. The nonenhanced liver, spleen, adrenal glands and gallbladder exhibit no gross visualized irregularity. The stomach is filled with food. No renal calcification, hydronephrosis or perinephric collection. No bowel obstruction, bowel wall thickening or peribowel inflammatory stranding. No discrete mesenteric collection, mass or irregularity on this nonenhanced study. Scattered atherosclerosis of the aorta and renal artery origins. No free pelvic fluid or air. No bladder calcification. The bladder is decompressed secondary to Tavera catheter. The superficial subcutaneous soft tissues are free of edema, hematoma, mass or cyst. Chronic irregularity of the L2 vertebral body that appears to represent a Schmorl's node. IMPRESSION IMPRESSION: 1. Questionable peripancreatic mesenteric edema. Comparison with patient's laboratory values is recommended to evaluate for pancreatitis. [facility] Radiology Study observation (narrative) [facility] CT Abdomen and Pelvis WO con trastOrdered By: Paulino Marcos on 11-12-2021 [facility] Work Phone: LACTATE, BLOODon 11-12-2021 Lactate [Moles/Vol] 1.7 mmol/L 0.7 - 2. 0 mmol/L [facility] LIPASEon 11-12-2021 Lipase [Catalytic activity/Vol] 56 U/L 23 - 300 U/L [facility] MAGNESIUMon 11-12-2021 Magnesium [Mass/Vol] 2.0 mg/dL [facility] NOVEL CORONAVIRUS LAB 1 - NA SOPHARYNGEALon 11-12-2021 NARRATIVE -1 This test was perfor med using isothermal HERMAN and has been approved as Emergency Use Authorization (EUA) for the qualitative detection [id number] nucleic acid. [facility] SARS-CoV-2 (COVID-19) RNA HERMAN+probe Ql (Unsp spec) Not detected NOT DETECTED [facility] Comment on above: Negative results do not preclude SARS-CoV-2 infection and should not be used as the sole basis for treatment or other patient management decisions. Optimum specimen types and timing for peak viral levels during infections caused by SARS-CoV-2 has not been determined. The possibility of a false negative result should especially be considered if the patient's recent exposures or clinical presentation suggest that SARS-CoV-2 infection is probable, and diagnostic tests for other causes of illness (e.g., other respiratory illness) are negative. Collection of a new specimen and re-testing may be necessary if the patient is critically ill or clinically deteriorating. [facility] No Panel Informationon 11-12 Interpretation and review of laboratory results Abnormal [facility] PROTIME-INRon 11-12-2021 INR Coag (PPP) [Relative time] 1.11 {INR} [facility] Comment on above: 2.0-3.0 THERAPEUTIC RANGE 2.5-3.5 MECHANICAL VALVE RANGE Testing performed at [place] [address] Interpretation and review of laboratory results Abnormal [facility] PT Coag (PPP) [Time] 14.5 s [facility] PTTon 11-12-2021 aPTT Coag (Bld) [Time] 31.9 s [facility] Comment on above: CARDIAC AND PE/DVT THERAPUTIC RANGE 69-97 SEC VASCULAR/THREATENED LIMB THERAPUTIC RANGE 80-112 SEC Testing performed at [address] Portable XR Chest Views APon 11-12-2021 IMPRESSION: No acute infiltrate or evidence of cardiac decompensation. When compared with the prior study, the lungs are now clear. RADIOLOGY EXAM: XR CHEST AP PO RTABLE at 1922 hours HISTORY: cough , wheezing and weakness COMPARISON: 11/06/2019 TECHNIQUE: AP upright portable chest x-ray FINDINGS: The heart is not enlarged and the vasculature is not distended. No acute infiltrate, effusion or pneumothorax is identified. The osseous structures are intact. RADIOLOGY Bryson Smith MD - 11/12/2021 EXAM: XR CHEST AP PORTABLE at 1922 hours HISTORY: cough , wheezing and weakness COMPARISON: 11/06/2019 TECHNIQUE: AP upright portable chest x-ray FINDINGS: The heart is not enlarged and the vasculature is not distended. No acute infiltrate, effusion or pneumothorax is identified. The osseous structures are intact. IMPRESSION IMPRESSION: No acute infiltrate or evidence of cardiac decompensation. When compared with the prior study, the lungs are now clear. [facility] Radiology Study observation (narrative) [facility] Portable XR Chest Views APOr dered By: Bryson Smith on 11-12-2021 [facility] Work Phone: TOXICOLOGY DRUG SCREEN, URIN Jonathan 11-12-2021 Amphetamine (U) [Mass/Vol] Negative NEGATIVE NG/ML [facility] Comment on above: <500 ng/ml CUTOFF Barbiturates Screen Ql (U) Negative NEGATIVE NG/ML [facility] Comment on above: <200 ng/ml C[facility]OFF Benzodiazepines Ql (U) Negative NEGATIVE NG/ML [facility] Comment on above: <150 ng/ml CUTOFF Benzoylecgonine Ql (U) Positive Abnormal NEGATIVE NG/ML [facility] Comment on above: <150 ng/ml CUTOFF *Unconfirmed Screening Result* Unconfirmed screening results are to be used only for medical treatment purposes. Buprenorphine Confirm (Qing) [Mass/Vol] Positive Abnormal NEGATIVE NG/ML [facility] Comment on above: <10 ng/ml CUTOFF *Unconfirmed Screening Result* Unconfirmed screening results are to be used only for medical treatment purposes. CORRECTED ON 11/12 AT 2103: PREVIOUSLY REPORTED NEGATIVE <10 ng/ml C[facility] Cannabinoids Screen Ql (U) Positive Abnormal NEGATIVE NG/ML [facility] Comment on above: <50 ng/ml CUTOFF *Unconfirmed Screening Result* Unconfirmed screening results are to be used only for medical treatment purposes. Interpretation and review of laboratory results Abnormal [facility] Methadone Screen Ql (U) Negative NEGATIVE NG/ML [facility] Comment on above: <200 ng/ml CUTOFF Methamphetamine (U) [Mass/Vol] Negative NEGATIVE NG/ML [facility] Comment on above: <500 ng/ml C[facility] Opiates Screen Ql (U) Negative NEGATIVE NG/ML [facility] Comment on above: <100 ng/ml CUTOFF oxyCODONE Ql (U) Negative NEGATIVE NG/ML [facility] Comment on above: <100 ng/ml C[facility]OFF Phencyclidine Screen method >25 ng/mL Ql (U) Negative NEGATIVE NG/ML [facility] Comment on above: <25 ng/ml C[facility]OFF Propoxyphene+Norprop oxyphene Screen Ql (U) Negative NEGATIVE NG/ML [facility] Comment on above: <300 ng/ml CUTOFF Tricyclic antidepressants Screen Ql (U) Negative NEGATIVE NG/ML [facility] Comment on above: <300 ng/ml CUTOFF [facility] TROPONIN I, HIGH SENSITIVITY on 11-12-2021 TROPONIN I, HIGH SENSITIVITY 4 pg/mL 0 - 20 pg/mL [facility] Comment on above: Indeterminant: >12 to 100 pg/mL female >20 to 100 pg/mL male Indicative of myocardial injury. Serial sampling is recommended, a change of greater than or equal to 20 pg/mL is indicative of acute coronary syndrome. URINALYSIS, MACROon 11-13-19 22 Bilirubin Ql (U) MODERATE Abnormal NEGATIVE [facility] Clarity (U) CLEAR CLEAR [facility] Color (U) YELLOW YELLOW [facility] Glucose Test strip (U) [Mass/Vol] Negative NEGATIVE mg/dl [facility] Hemoglobin Ql (U) Negative NEGATIVE [facility] Ketones (U) [Mass/Vol] 15 mg/dL Abnormal NEGATIVE [facility] Leukocyte esterase Test strip Ql (U) Negative NEGATIVE [facility] Nitrite Ql (U) Negative NEGATIVE [facility] pH (U) 5.5 [pH] [facility] Protein Ql (U) 100 mg/dl Abnormal NEGATIVE [facility] Specific gravity (U) [Rel density] 1.020 [facility] Urobilinogen (U) [Mass/Vol] 1.0 mg/dL [facility] URINE MICROSCOPICon 11-13-19 22 Bacteria LM.HPF (Urine sed) [#/Area] Negative NEGATIVE [facility] Casts LM.LPF (Urine sed) [#/Area] RARE Abnormal NONE /LPF [facility] Comment on above: HYALINE Crystals LM Nom (Urine sed) NONE NONE [facility] Epithelial cells LM Ql (Urine sed) 1 TO 5 /HPF [facility] Mucus Ql (Urine sed) TRACE Abnormal NEGATIVE [facility] RBC LM.HPF (Urine sed) [#/Area] Negative NEGATIVE /HPF [facility] Urine sediment comments LM Julián (Urine sed) CULTURE CRITERIA NOT MET, NO CULTURE PERFORMED. [facility] WBC LM.HPF (Urine sed) [#/Area] Negative NEGATIVE /HPF [facility] No Panel Informationon 10-07 [facility] IMPRESSION: 1. 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 2. No acute fracture or dislocation of the left shoulder. 3. Severe osteoarthritis of the left glenohumeral joint with multiple smooth osseous fragments about the joint that could be related to loose bodies or synovial osteochondromatosis. Sclerotic changes at the humeral head is questionable for underlying AVN. 4. No convincing evidence of an acute left rib fracture. Several remote healed left rib fractures are present. RADIOLOGY EXAM: XR SHOULDER LE FT MIN 2 VIEWS, XR RIBS LEFT HISTORY: Pain following a fall. COMPARISON: Left shoulder series August 06, 2017. TECHNIQUE: 3 views of the left shoulder. AP and oblique views of the left ribs. FINDINGS: LEFT SHOULDER: There is a remote ununited displaced fracture at the distal shaft of the left clavicle. There is severe osteoarthritis of the glenohumeral joint. There are multiple chronic smooth bone fragments about the joint. There is patchy sclerosis of the humeral head that may be related to underlying avascular necrosis. No acute fracture is visible. Surgical clips are present in the supraclavicular soft tissues. LEFT RIBS: There are remote healed fractures of the lateral left sixth and 10th ribs. No definitive acute fracture. No pneumothorax or sizable pleural effusion. RADIOLOGY Radames Villarreal, - 10/07/2021 EXAM: XR SHOULDER LEFT MIN 2 VIEWS, XR RIBS LEFT HISTORY: Pain following a fall. COMPARISON: Left shoulder series August 06, 2017. TECHNIQUE: 3 views of the left shoulder. AP and oblique views of the left ribs. FINDINGS: LEFT SHOULDER: There is a remote ununited displaced fracture at the distal shaft of the left clavicle. There is severe osteoarthritis of the glenohumeral joint. There are multiple chronic smooth bone fragments about the joint. There is patchy sclerosis of the humeral head that may be related to underlying avascular necrosis. No acute fracture is visible. Surgical clips are present in the supraclavicular soft tissues. LEFT RIBS: There are remote healed fractures of the lateral left sixth and 10th ribs. No definitive acute fracture. No pneumothorax or sizable pleural effusion. IMPRESSION IMPRESSION: 1. 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 2. No acute fracture or dislocation of the left shoulder. 3. Severe osteoarthritis of the left glenohumeral joint with multiple smooth osseous fragments about the joint that could be related to loose bodies or synovial osteochondromatosis. Sclerotic changes at the humeral head is questionable for underlying AVN. 4. No convincing evidence of an acute left rib fracture. Several remote healed left rib fractures are present. [facility] XR KNEE LEFT 3 VIEWSon 10-07 IMPRESSION: 1. No acute osseous abnormality of the left knee. 2. Remote healed fracture deformity of the proximal fibula. 3. Mild tricompartmental degenerative changes. RADIOLOGY EXAM: XR KNEE LEFT 3 VIEWS HISTORY: Left knee pain following a fall. COMPARISON: None. TECHNIQUE: 3 views of the left knee. FINDINGS: There is a remote healed fracture deformity of the proximal fibula. There is no evidence of an acute fracture. No sizable joint effusion. There are mild tricompartmental degenerative changes predominantly involving the medial tibiofemoral joint compartment. RADIOLOGY Radames Villarreal, DO - 10/07/2021 EXAM: XR KNEE LEFT 3 VIEWS HISTORY: Left knee pain following a fall. COMPARISON: None. TECHNIQUE: 3 views of the left knee. FINDINGS: There is a remote healed fracture deformity of the proximal fibula. There is no evidence of an acute fracture. No sizable joint effusion. There are mild tricompartmental degenerative changes predominantly involving the medial tibiofemoral joint compartment. IMPRESSION IMPRESSION: 1. No acute osseous abnormality of the left knee. 2. Remote healed fracture deformity of the proximal fibula. 3. Mild tricompartmental degenerative changes. [facility] Radiology Study observation (narrative) [facility] XR RIBS LEFTon 10-07-2021 Radiology Study observation (narrative) [facility] XR SHOULDER LEFT MIN 2 VIEWS on 10-07-2021 Radiology Study observation (narrative) [facility] ECHOCARDIOGRAM COMPLETE W CO NTRASTon 06-04-2021 ECHOCARDIOGRAM COMPLETE W CONTRAST Patient Info Name: CARMEN GILMAN Age: 55 years : 1965 Gender: Male Ht: 173 cm Wt: 118 kg BSA: 2.43 m2 HR: 64 bpm BP: 100 / 52 mmHg Heart Rhythm: Sinus Rhythm Technical Quality: Technically difficult, Poor Exam Date: 06/04/2021 6:48 AM Patient Status: Inpatient 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 Fair quality study. Valves best seen in subcostal views. Patient not cooperative. 2. Mild left ventricular concentric hypertrophy. 3. Left ventricular systolic function is hyperdynamic with an ejection fraction by Biplane Method of Discs of 81 %. 4. The left ventricular diastolic function is grade I diastolic dysfunction, consistent with low or normal atrial pressures. 5. No significant valvular heart disease is identified.. History/Risk Factors Hypertension: Yes Obesity: Yes Date of Last Tobacco Use: 01/25/2007 Diabetes Mellitus: Type II COPD: On Meds Tobacco Use: Former Family History: Diabetes Mellitus, Coronary Artery Disease History/Risk Factors Polysubstance abuse; atrial fibrillation. Procedure(s): Complete two-dimensional, color flow and Doppler transthoracic echocardiogram is performed with contrast. Definity explained to patient. Patient verbalizes understanding and agrees to proceed. Definity 1.3ml/8.7ml normal sterile saline 1 ml total given IV over 30-60 seconds. Left Ventricle Left ventricular chamber dimension is normal. Left ventricular systolic function is hyperdynamic with an ejection fraction by Biplane Method of Discs of 81 %. Mild left ventricular concentric hypertrophy. The left ventricular diastolic function is grade I diastolic dysfunction, consistent with low or normal atrial pressures. Right Ventricle Right ventricular chamber dimension is normal. Right ventricular systolic function is normal. Left Atria Left atrial chamber is normal with a left atrial volume index of 27 ml/m2 by BP MOD. Right Atria Right atrial chamber dimension is normal. Aortic Valve The aortic valve is trileaflet. There is no aortic valve sclerosis. There is no aortic valve stenosis with a peak velocity of 1.4 m/s, mean gradient of 4 mmHg, and aortic valve area of 3.0 cm2. There is no aortic valve regurgitation. Pulmonic Valve The pulmonic valve is normal. There is no pulmonic valve stenosis. There is trace pulmonic regurgitation. Mitral Valve The mitral valve has normal leaflets. There is no mitral valve stenosis. There is no mitral valve regurgitation. Tricuspid Valve The tricuspid valve leaflets are normal. There is no significant tricuspid valve stenosis. There is trace tricuspid valve regurgitation. There is pulmonary hypertension, estimated right ventricle systolic pressure is 46 mmHg. Pericardium/Pleural The pericardium appears normal. There is no pericardial effusion. Inferior Vena Cava Dilated inferior vena cava with >50% collapse upon inspiration consistent with elevated right atrial pressure. Aorta The aortic measurements are indexed to age and body surface area. The aortic root is normal measuring 3.3 cm with an index of 1.4 cm/m2. Left Ventricular Outflow Tract Name Value Normal LVOT 2D LVOT Diameter 2.0 cm LVOT Doppler LVOT Peak Velocity 1.4 m/s LVOT Peak Gradient 8 mmHg LVOT Mean Gradient 2 mmHg LVOT VTI 32 cm LVOT VTI/AV VTI Ratio 1.0 LVOT Stroke Volume 101 ml LVOT Stroke Index 41.54 ml/m2 LVOT CO 6.6 l/min LVOT CI 2.7 L/min/m2 Pulmonic Valve Name Value Normal PV Doppler PV Peak Velocity 1.41 m/s PV Peak Gradient 8 mmHg PV Mean Gradient 5 mmHg PV VTI 38 cm Mitral Valve Name Value Normal MV Doppler MV Peak Velocity 1.07 m/s MV Peak Gradient 5 mmHg MV Mean Gradient 2 mmHg MV VTI 33 cm MV Decel [place] 311 cm/s2 MV PHT 76 ms MV Area (PHT) 2.9 cm2 4.0-5.0 MV Area (Cont Eq VTI) 3.1 cm2 MV Area Index (Cont Eq VTI) 1.27 cm2/m2 MV Diastolic Function (more content not included)... Normal [facility] COVID-19, MOLECULARon 2020 SARS-CoV-2 (COVID-19) RNA HERMAN+probe Ql (Unsp spec) Not detected Normal Not Detected [facility] Comment on above: Order Comment: This test was performed under the FDA's Emergency Use Authorization (EUA). Testing was performed using the [employer] SARS-CoV-2 RT-PCR AND Influenza A/B Nucleic Acid Test on the [employer] Urs[employer]ula System. This test has not been approved for use in asymptomatic patients and its performance in this patient population has not been evaluated. Negative results do not rule out the presence of SARS-CoV-2, influenza A, and/or influenza B. Fact sheets for the EUA can be found at the following links: For Healthcare Providers: https://www.fda.gov/media/126347/download For Patients: https://www.fda.gov/media/740486/download Performed By: #### L [id number] #### [facility] [address], [place] [address] Jack Mendoza M.D. [id number] CT ANGIOGRAM CHEST ABDOMEN P ELVISon 06-03-2021 CT ANGIOGRAM CHEST ABDOMEN PELVIS EXAMINATION: CT ANGIOGRAM CHEST ABDOMEN PELVIS 06/03/2021 HISTORY: ORDERING SYSTEM PROVIDED HISTORY: Sepsis, TECHNOLOGIST PROVIDED HISTORY: Illness/Other Reason for Exam: Pt found down Encounter Type: Initial Additional Signs and Symptoms: ORDERING SYSTEM PROVIDED DIAGNOSIS CODES: J96.00 Acute respiratory failure, unspecified whether with hypoxia or hypercapnia ([facility]) R41.82 Altered mental status, unspecified altered mental status type R79.89 Elevated lactic acid level F19.10 Polysubstance abuse (HCC) R09.2 Respiratory arrest (HCC) J96.02 Acute hypercapnic respiratory failure (HCC) J96.01 Acute hypoxemic respiratory failure (HCC) J44.1 COPD with acute exacerbation ([facility]) R73.9 Hyperglycemia I10 Hypertension, unspecified type D72.829 Leukocytosis, unspecified type F12.10 Marijuana abuse F14.10 Nondependent cocaine abuse ([facility]) E87.2 Respiratory acidosis COMPARISON: CT pulmonary angiogram, 07/08/2020. AP chest, 06/03/2021. TECHNIQUE: Dose reduction techniques were achieved by using automated exposure control and/or adjustment of mA and/or kV according to patient size and/or use of iterative reconstruction technique. Coronal and sagittal MIP (maximum intensity projection) images were performed. 3 mm axial images from thoracic inlet through ischial tuberosities following administration of intravenous contrast were obtained. Sagittal, coronal MIP (maximum intensity projection) images were also obtained. CONTRAST: IOPAMIDOL 76% INTRAVENOUS SOLUTION - 75 mL FINDINGS: CT CHEST: There is minimal right pleural effusion with some dependent atelectatic changes at the lung bases, otherwise the lungs appear unremarkable. Endotracheal tube seems approximately 2 cm above virgie. The esophagogastric tube extends the entire length of the esophagus with the distal tip in the midbody of the stomach. The visualized thyroid, great vessels, aorta seem normal except for mild atherosclerotic changes of the aorta. The heart size seems normal. There are [id number] coronary artery calcifications. The pericardium appears normal. There is no significant axillary, hilar or mediastinal adenopathy. There is minimal bilateral gynecomastia. CT ABDOMEN: The liver is homogeneously low in density compatible with fatty liver with nodular-appearing surface of the liver concerning for underlying cirrhosis. The spleen seems enlarged. The craniocaudal dimension of the spleen seems to be approximately 17.3 cm without discrete lesions. The portal, splenic veins are patent. There are multiple collaterals in the upper abdomen. The stomach is not distended, therefore diffuse thickening. The adrenal glands, gallbladder, kidneys appear normal. There is some haziness surrounding the pancreas. The pancreas enhances normally. The abdominal aorta demonstrates normal caliber. There is a circumaortic left renal vein. There is no retroperitoneal or mesenteric adenopathy. The bowel loops are of normal caliber. CT PELVIS: There are scattered diverticula in the colon. The bladder is incompletely distended secondary to Tavera catheter. The prostate, seminal vesicles are normal. There is no significant pelvic adenopathy. There are no focal fluid collections. Images on bone windows demonstrate there are degenerative changes of thoracolumbar spine. There is loss of height of superior endplate of L2 of unknown chronicity. IMPRESSION: 1. Minimal pleural effusion involving the right lung base, otherwise no acute process in the chest, abdomen or pelvis to explain patient's sepsis. 2. Cirrhotic morphology of the liver with evidence of portal venous hypertension as seen by splenomegaly as well as multiple collaterals with patent portal, splenic veins. 3. There is some haziness surrounding the pancreas which could be secondary to mild haziness in the mesentery in general as well as mild body wall edema due to underlying liver disease however acute, nonnecrotizing pancreatitis is a consideration as well. Please correlate with serum lipase, amylase. 4. No nephro- or ureterolithiasis. 5. Normal appendix is not seen but no secondary signs of acute appendicitis. [employer] Workstation ID: [id number] Dictated by: LARRY SMITH on TueJun 04, 2021 1:15:48 AM EDT Transcribed by: ROSA GAMBLE on TueJun 04, 2021 1:46:50 AM EDT Finalized by: LARRY SMITH on [facility] Jun 04, 2021 2:02:27 AM EDT Normal [facility] Comment on above: Order Comment: Injur y/Trauma or Illness?:Illness/Other How long have you had these symptoms (acute/chronic)?:Acute Reason for exam?:pt found down Type of Exam?:Initial Additional signs and symptoms?: CT HEAD OR BRAIN WITHOUT CON TRASTon 06-03-2021 CT HEAD OR BRAIN WITHOUT CONTRAST EXAMINATION: CT HEAD OR BRAIN WITHOUT CONTRAST HISTORY: ORDERING SYSTEM PROVIDED HISTORY: Altered mental status, TECHNOLOGIST PROVIDED HISTORY: Illness/Other Reason for exam: pt found down Encounter Type: Initial Additional signs and symptoms: ORDERING SYSTEM PROVIDED DIAGNOSIS CODES: J96.00 Acute respiratory failure, unspecified whether with hypoxia or hypercapnia (HCC) R41.82 Altered mental status, unspecified altered mental status type R79.89 Elevated lactic acid level F19.10 Polysubstance abuse (HCC) COMPARISON: CT head from 08/24/2013 TECHNIQUE: CT examination of the head without IV contrast. Dose reduction techniques were achieved by using automated exposure control and/or adjustment of mA and/or kV according to patient size and/or use of iterative reconstruction technique. FINDINGS: The ventricles, sulci, and remaining CSF containing spaces maintain age appropriate volume and symmetry. No hydrocephalus. No herniation. The farris matter/white matter differentiation is maintained throughout. No evidence of contemporary infarct. No acute intracranial hemorrhage or parenchymal mass. Plate screw fixation of the mandible. The maxillary teeth are absent. Partially visualized endotracheal and enteric support tubing. The pneumatized portions of the skull are clear. IMPRESSION: No acute intracranial abnormality. Workstation ID: [id number] Dictated by: PRASHANTH KUNZ on TueJun 03, 2021 4:21:22 PM EDT Transcribed by: PRASHANTH KUNZ on TueJun 03, 2021 4:21:22 PM EDT Finalized by: PRASHANTH KUNZ on TueJun 03, 2021 4:21:22 PM EDT Normal [facility] Comment on above: Order Comment: Injur y/Trauma or Illness?:Illness/Other How long have you had these symptoms (acute/chronic)?:Acute Reason for exam?:pt found down Type of Exam?:Initial Additional signs and symptoms?: XR FOOT LEFT 3 VIEWSon 04-04 IMPRESSION: Dislocation of the proximal interphalangeal joint of the second digit. Degenerative changes of the first metatarsophalangeal joint and the fifth metacarpophalangeal joint with erosive changes. Soft tissue swelling of the great toe. FOLLOW-UP: Follow-up as clinically indicated. RADIOLOGY EXAM: XR FOOT LEFT 3 VIEWS 04/04/2021 2:22 AM EDT S CLINICAL STATEMENT: pain 2nd toe COMPARISON: No prior studies are available at the time of dictation. TECHNIQUE: 3 views AP, oblique and lateral views of the left foot are submitted. FINDINGS: There is dislocation of the proximal interphalangeal joint of the second digit. Degenerative changes of the first metatarsophalangeal joint and the fifth metacarpophalangeal joint with erosive changes. Soft tissue swelling of the great toe. The osseous structures are intact and in anatomic alignment. There is no acute fracture and/or dislocation. Bone mineralization is within normal limits for the patient's age. [facility] Eran Barksdale MD - 04/04/2021 EXAM: XR FOOT LEFT 3 VIEWS 04/04/2021 2:22 AM EDT AHParag CLINICAL STATEMENT: pain 2nd toe COMPARISON: No prior studies are available at the time of dictation. TECHNIQUE: 3 views AP, oblique and lateral views of the left foot are submitted. FINDINGS: There is dislocation of the proximal interphalangeal joint of the second digit. Degenerative changes of the first metatarsophalangeal joint and the fifth metacarpophalangeal joint with erosive changes. Soft tissue swelling of the great toe. The osseous structures are intact and in anatomic alignment. There is no acute fracture and/or dislocation. Bone mineralization is within normal limits for the patient's age. IMPRESSION IMPRESSION: Dislocation of the proximal interphalangeal joint of the second digit. Degenerative changes of the first metatarsophalangeal joint and the fifth metacarpophalangeal joint with erosive changes. Soft tissue swelling of the great toe. FOLLOW-UP: Follow-up as clinically indicated. [facility] Radiology Study observation (narrative) [facility] XR FOOT LEFT 3 VIEWSOrdered By: Eran Barksdale on 04-04-2021 [facility] Work Phone: XR Toe(s) Left 2+ ViewsOrder ed By: Saulo Joseph on 02-02-2021 1. No identifiable radiopaque foreign bodies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 DIFFICULTY BREATHING Cancer History: " Surgery, RadiationHistory: unk Encounter Type: Initial Additional signs and symptoms: N ORDERING SYSTEM PROVIDED DIAGNOSIS CODES: COMPARISON: 07/07/2020 FINDINGS: Single, portable, upright frontal view of the chest was obtained. Cardiac silhouette appears unremarkable. No pneumothorax, pulmonary vascular congestion. Trace left pleural effusion is suspected. There is mild hazy opacity in the bilateral lung bases, left greater than right. [facility] APTTon 07-09-2020 aPTT Coag (Bld) [Time] Therapeutic range for APTT's is 68 - 104 seconds [facility] aPTT Coag (Bld) [Time] 138 s Critically high [facility] Interpretation and review of laboratory results Abnormal [facility] aPTT Coag (Bld) [Time] 58 s High [facility] aPTT Coag (Bld) [Time] Therapeutic range for APTT's is 68 - 104 seconds [facility] Interpretation and review of laboratory results Abnormal [facility] Basic Metabolic Panelon 06-22 Anion gap [Moles/Vol] 5 mmol/L Low 10 - 20 mmol/L [facility] Calcium [Mass/Vol] 8.1 mg/dL Low 8.4 - 10. 2 mg/dL [facility] Chloride [Moles/Vol] 104 mmol/L 98 - 10 8 mmol/L [facility] Creatinine [Mass/Vol] 0.82 mg/dL 0.50 - 1.30 [facility] GFR/1.73 sq M predicted among non-blacks MDRD (S/P/Bld) [Vol rate/Area] The eGFR should be used for monitoring renal function only and not for medication dosing. [facility] GFR/1.73 sq M.predicted CKD-EPI (S/P/Bld) [Vol rate/Area] 101 >=60 mL/min/1.73 m2 [facility] Glucose [Mass/Vol] 154 mg/dL High 65 - 99 mg/dL [facility] HCO3 [Moles/Vol] 31 mmol/L 21 - 32 mmol/L [facility] Interpretation and review of laboratory results Abnormal [facility] Potassium [Moles/Vol] 4.4 mmol/L 3.5 - 5.1 mmol/L [facility] Sodium [Moles/Vol] 136 mmol/L 135 - 145 mmol/L [facility] Urea nitrogen [Mass/Vol] 30 mg/dL High 8 - 25 mg/dL [facility] Urea nitrogen/Creatinine [Mass ratio] 36.6 mg/mg High [facility] CBCon 07-09-2020 Erythrocyte distribution width (RBC) [Entitic vol] 16.0 % High 11.6 - 14.8 % [facility] Hematocrit (Bld) [Volume fraction] 30.8 % Low 41 - 53 % [facility] Hemoglobin (Bld) [Mass/Vol] 9.6 g/dL Low 13.5 - 17.5 g/dL [facility] Interpretation and review of laboratory results Abnormal [facility] MCH (RBC) [Entitic mass] 22.3 pg Low 26 - 34 pg [facility] MCHC (RBC) [Mass/Vol] 31.2 g/dL 31 - 37 g/dL [facility] MCV (RBC) [Entitic vol] 71.6 fL Low 80 - 100 fL [facility] Nucleated RBC (Bld) [#/Vol] 0.00 10*3/uL [facility] Nucleated RBC/100 WBC (Bld) [Ratio] 0.0 % [facility] Platelet mean volume (Bld) [Entitic vol] 11.2 fL 9.4 - 12.4 fL [facility] Platelets (Bld) [#/Vol] 107 10*3/uL Low [facility] RBC (Bld) [#/Vol] 4.30 10*6/uL Low [facility] WBC (Bld) [#/Vol] 5.01 10*3/uL [facility] CBC WITH AUTO DIFFERENTIALon 07-09-2020 Basophils (Bld) [#/Vol] 0.00 10*3/uL [facility] Basophils/100 WBC (Bld) 0.0 % [facility] Eosinophils (Bld) [#/Vol] 0.00 10*3/uL [facility] Eosinophils/100 WBC (Bld) 0.0 % [facility] Erythrocyte distribution width (RBC) [Entitic vol] 16.1 % High 11.6 - 14.8 % [facility] Hematocrit (Bld) [Volume fraction] 31.6 % Low 41 - 53 % [facility] Hemoglobin (Bld) [Mass/Vol] 9.9 g/dL Low 13.5 - 17.5 g/dL [facility] Immature granulocytes (Bld) [#/Vol] 0.05 10*3/uL [facility] Immature granulocytes/100 WBC (Bld) 0.80 % [facility] Comment on above: The IG parameter is the percentage of metamyelocytes, myelocytes and promyelocytes. An immature granulocyte count (IG) of 1% or more suggests the possibility of infection, an IG count of 3% is very likely related to an infection. Interpretation and review of laboratory results Abnormal [facility] Lymphocytes (Bld) [#/Vol] 0.44 10*3/uL Low [facility] Lymphocytes/100 WBC (Bld) 7.3 % [facility] MCH (RBC) [Entitic mass] 21.9 pg Low 26 - 34 pg [facility] MCHC (RBC) [Mass/Vol] 31.3 g/dL 31 - 37 g/dL [facility] MCV (RBC) [Entitic vol] 69.8 fL Low 80 - 100 fL [facility] Monocytes (Bld) [#/Vol] 0.25 10*3/uL Low [facility] Monocytes/100 WBC (Bld) 4.1 % [facility] [facility] Neutrophils (Bld) [#/Vol] 5.31 10*3/uL [facility] Neutrophils/100 WBC (Bld) 87.8 % [facility] Nucleated RBC (Bld) [#/Vol] 0.00 10*3/uL [facility] Nucleated RBC/100 WBC (Bld) [Ratio] 0.0 % [facility] Platelet mean volume (Bld) [Entitic vol] 9.7 fL 9.4 - 12.4 fL [facility] Platelets (Bld) [#/Vol] 114 10*3/uL Low [facility] RBC (Bld) [#/Vol] 4.53 10*6/uL [facility] eah WBC (Bld) [#/Vol] 6.05 10*3/uL [facility] EKGon 11-18-2020 Ordered by an unspec ified provider. [facility] LDHon 07-09-2020 Interpretation and review of laboratory results Normal [facility] LDH Lactate to pyruvate reaction [Catalytic activity/Vol] 144 U/L 100 - 250 U/L [facility] Magnesium Levelon 07-09-2020 Interpretation and review of laboratory results Normal [facility] Magnesium [Mass/Vol] 2.4 mg/dL 1.6 - 2 .4 mg/dL [facility] PATHOLOGIST BLOOD SMEAR INTE RPRETATIONon 07-09-2020 Erythrocyte distribution width (RBC) [Entitic vol] 16.4 % High 11.6 - 14.8 % [facility] Hematocrit (Bld) [Volume fraction] 38.2 % Low 41 - 53 % [facility] Hemoglobin (Bld) [Mass/Vol] 11.8 g/dL Low 13.5 - 17.5 g/dL [facility] Interpretation and review of laboratory results Abnormal [facility] MCH (RBC) [Entitic mass] 21.9 pg Low 26 - 34 pg [facility] MCHC (RBC) [Mass/Vol] 30.9 g/dL Low 31 - 37 g/dL [facility] MCV (RBC) [Entitic vol] 70.9 fL Low 80 - 100 fL [facility] Nucleated RBC (Bld) [#/Vol] 0.00 10*3/uL [facility] Nucleated RBC/100 WBC (Bld) [Ratio] 0.0 % [facility] Pathologist review Pathologist comment (Bld) [Interp] Reviewed [facility] Platelet mean volume (Bld) [Entitic vol] 10.2 fL 9.4 - 12.4 fL [facility] Platelets (Bld) [#/Vol] 200 10*3/uL [facility] RBC (Bld) [#/Vol] 5.39 10*6/uL [facility] WBC (Bld) [#/Vol] 8.61 10*3/uL [facility] See Pathology Report #[id number] [facility] POC Glucoseon 07-09-2020 Glucose [Mass/Vol] 136 mg/dL High 65 - 99 mg/dL [facility] Interpretation and review of laboratory results Abnormal [facility] Glucose [Mass/Vol] 128 mg/dL High 65 - 99 mg/dL [facility] Interpretation and review of laboratory results Abnormal [facility] Glucose [Mass/Vol] 233 mg/dL High 65 - 99 mg/dL [facility] Interpretation and review of laboratory results Abnormal [facility] Pathology Consulton 07-09-20 20 Clinical information [id number] mbGFuZzE eDuQhZeKfGdo1NVFnmsO3Mbl4OF MdBGijaA8yHFTdKFvtG5kpsbXcl KJrVNWdJHf2uG5wrNjazG8kStAl PoQwLWJfi6QpCZDpqRCrtOO3yDH cuRSpYBCyBUEbCOahp2YotBtfCZ BhciB9 [facility] Pathology report final diagnosis Narrative d9qwuUUoMNOvfFO5XvBjNHRop1k kt8IceXQfxCJcQQcvzFBphsOppu 48qZK2xJ79XD4bHYRkRjX6IMHxj cH0Xty2PSVfHSJzsVJxA489TVSf VAPfW63mSZLUS675v7ykt0ylsiE uzIB8xTfnTJPaAPSdRJdvWAQbVh HrQdXkXTGXXmHjBTKbv3BeI9U9A TLjMZahf9xgRQFxVHnil6RjFRrL KOMQQY3PXR4hrZZ4LIqCOIART7b LdBE5AqV0gNA9EY39PGEnZFLrhO HxBViuA469UYVfiKEbUIWvvUUzt O0hTCAkhELlwpk9LMCuXCuvm1ve COUxSEfiw0YiBYgQETXHYH2YPS2 gyMN6OKuWVNYTYEtvIPC2YSotnO Q8c0mpbWIlp4r1NMakOYU0bYjvi GFpblxiXGYxXGZzMjBccGFyXGxp NzIwXGxpbjcyMFxiMCAxLiAgTWl hHIGyIOF2bf2blAmzrZXuXZV1Q3 dfx1CamwWiw4ZshK3lTZP2pF58w n0uaqQlUH8aENHsrixhOTLsi7ux Y6rbYXqtokHlWd0rEK1jQ8GlT4z 7eDIlAQ2ivAogFFeocXdqRG5ts8 8ql7mlaOxzS0y8o7HyfrBekzUms YHecigyrI1gfAPshj6jHKAlMGvk q0HtZZEnn22aoGJzahIip1I2nSV hZZPhQAUsCSiamJPlG8H1BLQiyG zbJyZkC6ViJTNojR8wqfNcSTncd cZrVz2bEJGbyxpmvOVfZQrrXqxt f1Dee34bLXNisaH2nKL6SSJxoYK xb1BsFRAhdSRHYPMwZDUFz03uFA KWNmXeKVjgvjThhRpxSYBIv01mK U33TbFOcLKmGpsoUCenJ8YiFACg UWG0S1gqc3BwtlMjx8DjsWOsojV lNSKrZ1mvqiU8UZBnSC2wDWrjlb SbXTBzyVWvwDUdc9SicFUgWT3wM I5ydGcjsQJfDQMPHL8fR2xySfvr r7CzfUm2E9KgRKmbc7OdgZhoNQq zIGNvbnNpZGVyZWQgbGVzcyBsaW breOa9RSsus9U9ETLjPTxchA7rz C8mzR3iBHayT9Ong3Sfn7Krj4cq JA8oZ0v2JTJcUHKwunDkMYMtWOL bMl1fKZS7qhVoVIEiNCShmCKwoT kpupycG8v5WN8bmDddGPOqeV7jb QJdWCFanNjpqUDjaKG9i3X5CS6j NQZfwTJkgAgscENqn6EgjYDuSVS ecswbGMLaEXGeuoo4XJJIJTOLFM pGZE3XBVQRDUUMCB8LRJoQTrBeG BO9GCoxZFS0QhIPOSZXWFlDZ5Ht HBUMKAJBSMTzZO9EJFbJETNDYOW BV63HVXKVUPJUQ7HKX3gJXJbTKC CMYRYJQ06YJKIGYAOGS6BANVUAS FHKZAmZAHETPm7UYULNGTUYBZ0K HTqKKhSrPCmFDCGsdwGcTjZ2DxJ 4Szu6NOi6KAQGPSSGSZ2OXOCEE0 8CDDNILDCML0SHPNRRCrXWHXAQG 74ECVVULERNK3DSW8fPWGOPCwJS UOTZW50DKBRYDKAGJ7RTWWXXDNI EIpJAXvJPRN6SRTVCRTLUYQ4SMX pREzXtYDKWC1HHHxDJD0ebLZYDM DYCHRHkBY1FzE== [facility] Pathology report gross observation Narrative a2aufYCpQUBbfXQ4PeEkUBZyc2t ga7FaqMIrtJRbFMyzuWVnwpHaez 04mBR8cZ86JH4yDGPoKyA5BMSpg qM9Lzq8TTHnJLZcbALfQ987MSYh BUVzM02fQAIYG399w4vwb5qbbwE wuTD7dXieNFEaPXClGFlvUOXtZY FeFuPeWgRjTPb5PQMeiHMzs89qZ KNeihzvtNAfPPseLzlmt3Cjv65r YXIgKFdyaWdodCBzdGFpbikuXHB nzxocMCEmW33xTCNptXTyjITzCY HwUNZ8JG1qbyKjoIZrFGZLa6Wyo WJlySOmSWTeAGSToYWhp35gmhYK rdYscYDoZXKez2VyVSdoJYCRLQA 6XTxjP1ggLTYznJClMManUNM5 [facility] APTTon 07-08-2020 aPTT Coag (Bld) [Time] Therapeutic range for APTT's is 68 - 104 seconds [facility] aPTT Coag (Bld) [Time] 59 s High [facility] Interpretation and review of laboratory results Abnormal [facility] aPTT Coag (Bld) [Time] 33 s [facility] aPTT Coag (Bld) [Time] Therapeutic range for APTT's is 68 - 104 seconds [facility] Alcohol, Medicalon 0 Ethanol [Mass/Vol] mg/dL <10.00 mg/dL [facility] Comment on above: Alcohol cutoff: <10. 00 mg/dL = None Detected Interpretation and review of laboratory results Normal [facility] Ammoniaon 07-08-2020 Ammonia (P) [Mass/Vol] 58 ug/dL High [facility] Interpretation and review of laboratory results Abnormal [facility] CBCon 07-08-2020 Erythrocyte distribution width (RBC) [Entitic vol] 16.4 % High 11.6 - 14.8 % [facility] Hematocrit (Bld) [Volume fraction] 38.2 % Low 41 - 53 % [facility] Hemoglobin (Bld) [Mass/Vol] 11.8 g/dL Low 13.5 - 17.5 g/dL [facility] Interpretation and review of laboratory results Abnormal [facility] MCH (RBC) [Entitic mass] 21.9 pg Low 26 - 34 pg [facility] MCHC (RBC) [Mass/Vol] 30.9 g/dL Low 31 - 37 g/dL [facility] MCV (RBC) [Entitic vol] 70.9 fL Low 80 - 100 fL [facility] Nucleated RBC (Bld) [#/Vol] 0.00 10*3/uL [facility] Nucleated RBC/100 WBC (Bld) [Ratio] 0.0 % [facility] Platelet mean volume (Bld) [Entitic vol] 10.2 fL 9.4 - 12.4 fL [facility] Platelets (Bld) [#/Vol] 200 10*3/uL [facility] RBC (Bld) [#/Vol] 5.39 10*6/uL [facility] WBC (Bld) [#/Vol] 8.61 10*3/uL [facility] Erythrocyte distribution width (RBC) [Entitic vol] 16.3 % High 11.6 - 14.8 % [facility] Hematocrit (Bld) [Volume fraction] 35.2 % Low 41 - 53 % [facility] Hemoglobin (Bld) [Mass/Vol] 10.6 g/dL Low 13.5 - 17.5 g/dL [facility] Interpretation and review of laboratory results Abnormal [facility] MCH (RBC) [Entitic mass] 22.1 pg Low 26 - 34 pg [facility] MCHC (RBC) [Mass/Vol] 30.1 g/dL Low 31 - 37 g/dL [facility] MCV (RBC) [Entitic vol] 73.5 fL Low 80 - 100 fL [facility] Nucleated RBC (Bld) [#/Vol] 0.00 10*3/uL [facility] Nucleated RBC/100 WBC (Bld) [Ratio] 0.0 % [facility] Platelet mean volume (Bld) [Entitic vol] 11.2 fL 9.4 - 12.4 fL [facility] Platelets (Bld) [#/Vol] 126 10*3/uL Low [facility] RBC (Bld) [#/Vol] 4.79 10*6/uL [facility] WBC (Bld) [#/Vol] 5.04 10*3/uL [facility] COVID-19, MOLECULARon 2019 SARS-COV-2 (WATERS ID) Not Detected Normal Not Detected [facility] Comment on above: Result Comment: This test was performed under the FDA's Emergency Use Authorization (EUA). Testing was performed using the [employer] ID NOW COVID-19 assay on the ID NOW platform. This test has not been approved for use in asymptomatic patients and its performance in this patient population has not been evaluated. Negative results do not rule out the presence of SARS-CoV-2/COVID-19. Fact sheets for the EUA can be found at the following links: For Healthcare Providers: https://www.fda.gov/media/424546/download For Patients: https://www.fda.gov/media/446080/download Performed By: #### L [id number] #### LAB [address], [place] [address] Jack Mendoza M.D. [id number] CT PULMONARY ARTERIESon 06-22 Interface, Rad In ji Speechq - 07/08/2020 2:26 PM EST EXAMINATION: CT PULMONARY ARTERIES HISTORY: ORDERING SYSTEM PROVIDED HISTORY: PE suspected, high pretest prob, TECHNOLOGIST PROVIDED HISTORY: Illness/Other Reason for exam: Acute exacerbation of COPD, respiratory distress. Encounter Type: Initial Additional signs and symptoms: Best images acheivable. ORDERING SYSTEM PROVIDED DIAGNOSIS CODES: J96.00 Acute respiratory failure, unspecified whether with hypoxia or hypercapnia (HCC) J44.1 COPD exacerbation (HCC) F12.10 Cannabis abuse COMPARISON: CT chest without contrast on 11/06/2019. TECHNIQUE: CT angiography of the pulmonary arteries following the administration of intravenous contrast. Coronal and sagittal MIP images were performed. Dose reduction techniques were achieved by using automated exposure control and/or adjustment of mA and/or kV according to patient size and/or use of iterative reconstruction technique. CONTRAST: IOPAMIDOL 76 % INTRAVENOUS SOLUTION - 75 mL, FINDINGS: The study is markedly limited to evaluate for pulmonary embolism due to phase of contrast. There is no focal filling defect up to the lobar level. The main pulmonary artery is within normal limits. Mild bilateral gynecomastia. No axillary lymphadenopathy. The ascending thoracic aorta is normal in caliber. Heart size is mildly enlarged. Uegm-kc-yleziref coronary artery calcifications. There are a few shotty lymph nodes in the mediastinum and hilar region, not significantly changed from the prior study of October,. The pharmaceutical representative lymph node in the right paratracheal region measures 16 x 9 mm (series 2, image 37) with preservation of the fatty hilum. Given the preservation of the fatty hilum, these are likely benign in nature. The feeding tube tip terminates in the gastric body. Limited evaluation of the upper abdomen demonstrates slightly heterogeneous appearance of liver, likely related to quantum mottling artifact. The spleen measures 15.6 cm. Thickening of the bilateral adrenal glands is likely related to hyperplasia. There is a 7 mm fat density lesion in left adrenal gland with a measuring Hounsfield unit of -4, consistent with a myelolipoma. Bone windows demonstrate no suspicious osseous lesion. There are multilevel rnshnty-vz-xadz degenerative changes of the thoracic spine. The endotracheal tube tip terminates in the distal thoracic trachea, approximately 4 cm above the virgie. The central airways are grossly patent. There is mild bronchial wall thickening in the lower lobes, suggestive of inflammatory changes. There is a small left, trace right-sided pleural effusion with associated consolidative opacities in the bilateral lower lobes. Evaluation for pulmonary nodule is limited due to motion artifact. IMPRESSION: Limited study to evaluate for pulmonary embolism due to phase of contrast. No focal filling defect up to the lobar level. Small left, trace right-sided pleural effusion. Associated consolidative opacities are likely related to atelectasis. Superimposed pneumonia is also a possibility, less likely. Splenomegaly. Left adrenal myelolipoma. [employer] Workstation ID: [id number] [place] [id number] Limited study to lary luate for pulmonary embolism due to phase of contrast. No focal filling defect up to the lobar level. Small left, trace right-sided pleural effusion. Associated consolidative opacities are likely related to atelectasis. Superimposed pneumonia is also a possibility, less likely. Splenomegaly. Left adrenal myelolipoma. [employer] Workstation ID: [id number] EXAMINATION: CT PULM ONARY ARTERIES HISTORY: ORDERING SYSTEM PROVIDED HISTORY: PE suspected, high pretest prob, TECHNOLOGIST PROVIDED HISTORY: Illness/Other Reason for exam: Acute exacerbation of COPD, respiratory distress. Encounter Type: Initial Additional signs and symptoms: Best images acheivable. ORDERING SYSTEM PROVIDED DIAGNOSIS CODES: J96.00 Acute respiratory failure, unspecified whether with hypoxia or hypercapnia ([facility]) J44.1 COPD exacerbation ([facility]) F12.10 Cannabis abuse COMPARISON: CT chest without contrast on 11/06/2019. TECHNIQUE: CT angiography of the pulmonary arteries following the administration of intravenous contrast. Coronal and sagittal MIP images were performed. Dose reduction techniques were achieved by using automated exposure control and/or adjustment of mA and/or kV according to patient size and/or use of iterative reconstruction technique. CONTRAST: IOPAMIDOL 76 % INTRAVENOUS SOLUTION - 75 mL, FINDINGS: The study is markedly limited to evaluate for pulmonary embolism due to phase of contrast. There is no focal filling defect up to the lobar level. The main pulmonary artery is within normal limits. Mild bilateral gynecomastia. No axillary lymphadenopathy. The ascending thoracic aorta is normal in caliber. Heart size is mildly enlarged. Gzfi-vl-yjyarmoo coronary artery calcifications. There are a few shotty lymph nodes in the mediastinum and hilar region, not significantly changed from the prior study of October,. The pharmaceutical representative lymph node in the right paratracheal region measures 16 x 9 mm (series 2, image 37) with preservation of the fatty hilum. Given the preservation of the fatty hilum, these are likely benign in nature. The feeding tube tip terminates in the gastric body. Limited evaluation of the upper abdomen demonstrates slightly heterogeneous appearance of liver, likely related to quantum mottling artifact. The spleen measures 15.6 cm. Thickening of the bilateral adrenal glands is likely related to hyperplasia. There is a 7 mm fat density lesion in left adrenal gland with a measuring Hounsfield unit of -4, consistent with a myelolipoma. Bone windows demonstrate no suspicious osseous lesion. There are multilevel hgwypqh-ix-hdjk degenerative changes of the thoracic spine. The endotracheal tube tip terminates in the distal thoracic trachea, approximately 4 cm above the virgie. The central airways are grossly patent. There is mild bronchial wall thickening in the lower lobes, suggestive of inflammatory changes. There is a small left, trace right-sided pleural effusion with associated consolidative opacities in the bilateral lower lobes. Evaluation for pulmonary nodule is limited due to motion artifact. [facility] CT PULMONARY ARTERIES EXAMINATION: CT PULMONARY ARTERIES HISTORY: ORDERING SYSTEM PROVIDED HISTORY: PE suspected, high pretest prob, TECHNOLOGIST PROVIDED HISTORY: Illness/Other Reason for exam: Acute exacerbation of COPD, respiratory distress. Encounter Type: Initial Additional signs and symptoms: Best images acheivable. ORDERING SYSTEM PROVIDED DIAGNOSIS CODES: J96.00 Acute respiratory failure, unspecified whether with hypoxia or hypercapnia ([facility]) J44.1 COPD exacerbation ([facility]) F12.10 Cannabis abuse COMPARISON: CT chest without contrast on 11/06/2019. TECHNIQUE: CT angiography of the pulmonary arteries following the administration of intravenous contrast. Coronal and sagittal MIP images were performed. Dose reduction techniques were achieved by using automated exposure control and/or adjustment of mA and/or kV according to patient size and/or use of iterative reconstruction technique. CONTRAST: IOPAMIDOL 76 % INTRAVENOUS SOLUTION - 75 mL, FINDINGS: The study is markedly limited to evaluate for pulmonary embolism due to phase of contrast. There is no focal filling defect up to the lobar level. The main pulmonary artery is within normal limits. Mild bilateral gynecomastia. No axillary lymphadenopathy. The ascending thoracic aorta is normal in caliber. Heart size is mildly enlarged. Vnoy-mj-mexcjbkc coronary artery calcifications. There are a few shotty lymph nodes in the mediastinum and hilar region, not significantly changed from the prior study of October,. The pharmaceutical representative lymph node in the right paratracheal region measures 16 x 9 mm (series 2, image 37) with preservation of the fatty hilum. Given the preservation of the fatty hilum, these are likely benign in nature. The feeding tube tip terminates in the gastric body. Limited evaluation of the upper abdomen demonstrates slightly heterogeneous appearance of liver, likely related to quantum mottling artifact. The spleen measures 15.6 cm. Thickening of the bilateral adrenal glands is likely related to hyperplasia. There is a 7 mm fat density lesion in left adrenal gland with a measuring Hounsfield unit of -4, consistent with a myelolipoma. Bone windows demonstrate no suspicious osseous lesion. There are multilevel ciakhjt-bu-fpwc degenerative changes of the thoracic spine. The endotracheal tube tip terminates in the distal thoracic trachea, approximately 4 cm above the virgie. The central airways are grossly patent. There is mild bronchial wall thickening in the lower lobes, suggestive of inflammatory changes. There is a small left, trace right-sided pleural effusion with associated consolidative opacities in the bilateral lower lobes. Evaluation for pulmonary nodule is limited due to motion artifact. IMPRESSION: Limited study to evaluate for pulmonary embolism due to phase of contrast. No focal filling defect up to the lobar level. Small left, trace right-sided pleural effusion. Associated consolidative opacities are likely related to atelectasis. Superimposed pneumonia is also a possibility, less likely. Splenomegaly. Left adrenal myelolipoma. [employer] Workstation ID: [id number] Dictated by: MONIE ROCHE on TueJul 08, 2020 10:27:46 AM EST Transcribed by: AMNA NEAL on TueJul 08, 2020 10:35:04 AM EST Finalized by: MONIE ROCHE on TueJul 08, 2020 2:23:59 PM EST Normal [facility] Comment on above: Order Comment: Injur y/Trauma or Illness?:Illness/Other How long have you had these symptoms (acute/chronic)?:Acute Reason for exam?:Acute exacerbation of COPD, respiratory distress. Type of Exam?:Initial Additional signs and symptoms?:Best images acheivable. Comprehensive Metabolic Pane [facility] 07-08-2020 Albumin [Mass/Vol] 2.8 g/dL Low 3.2 - 5.2 g/dL [facility] ALP [Catalytic activity/Vol] 58 U/L 40 - 150 U/L [facility] ALT [Catalytic activity/Vol] 52 U/L 14 - 65 U/L [facility] Anion gap [Moles/Vol] 11 mmol/L 10 - 20 mmol/L [facility] AST [Catalytic activity/Vol] 55 U/L High 0 - 45 U/L [facility] Bilirubin [Mass/Vol] 0.8 mg/dL 0 - 1.3 mg/dL [facility] Calcium [Mass/Vol] 8.1 mg/dL Low 8.4 - 10. 2 mg/dL [facility] Chloride [Moles/Vol] 105 mmol/L 98 - 10 8 mmol/L [facility] Creatinine [Mass/Vol] 0.96 mg/dL 0.50 - 1.30 [facility] GFR/1.73 sq M predicted among non-blacks MDRD (S/P/Bld) [Vol rate/Area] The eGFR should be used for monitoring renal function only and not for medication dosing. [facility] GFR/1.73 sq M.predicted CKD-EPI (S/P/Bld) [Vol rate/Area] 90 >=60 mL/min/1.73 m2 [facility] Glucose [Mass/Vol] 147 mg/dL High 65 - 99 mg/dL [facility] HCO3 [Moles/Vol] 26 mmol/L 21 - 32 mmol/L [facility] Interpretation and review of laboratory results Abnormal [facility] Potassium [Moles/Vol] 5.1 mmol/L 3.5 - 5.1 mmol/L [facility] Protein [Mass/Vol] 7.8 g/dL 6 - 8 g/dL [facility] alth Sodium [Moles/Vol] 137 mmol/L 135 - 145 mmol/L [facility] Urea nitrogen [Mass/Vol] 20 mg/dL 8 - 25 mg/dL [facility] Urea nitrogen/Creatinine [Mass ratio] 20.8 mg/mg High [facility] Cortisol, Randomon 0 Cortisol [Mass/Vol] 16.9 ug/dL mcg/dL [facility] ealth No established refer ence range. [facility] Creatinine, Urine, Randomon 07-08-2020 Creatinine (U) [Mass/Vol] 29.1 mg/dL [facility] No established refer ence range. [facility] D-DIMER, QUANTITATIVEon 06-22 Fibrin D-dimer FEU (PPP) [Mass/Vol] 4.94 High 0.27 - 0.49 mcg/mL FEU [facility] Interpretation and review of laboratory results Abnormal [facility] A D-dimer concentrat ion of <0.5 micrograms per milliliter FEU is considered a low probability for pulmonary embolus (PE) and deep venous thrombosis (DVT). Results of this test should always be interpreted in conjunction with the patient's medical history,clinical presentation, and other findings. Clinical diagnosis should not be based on the results of the D-dimer alone. [facility] DRUGS OF ABUSE SCREEN, URINE on 07-08-2020 Amphetamines Ql (U) None Detected None Detected [facility] Comment on above: Urine Amphetamine Cu toff: < 1000 ng/mL = None Detected Barbiturates Screen Ql (U) None Detected [facility] Comment on above: Urine Barbiturates C utoff: < 200 ng/mL = None Detected Benzodiazepines Ql (U) None Detected None Detected [facility] Comment on above: Urine Benzodiazepine Cutoff: < 200 ng/mL = None Detected Cannabinoids Screen Ql (U) Positive Abnormal None Detected [facility] Comment on above: Urine Cannabinoids C utoff: < 50 ng/mL = None Detected Cocaine Ql (U) None Detected [facility]ed [facility] Comment on above: Urine Cocaine Cutoff : < 300 ng/mL = None Detected Interpretation and review of laboratory results Abnormal [facility] Methadone Screen Ql (U) None Detected None Detected [facility] Comment on above: Urine Methadone Cuto ff: < 300 ng/mL = None Detected Opiates Screen Ql (U) None Detected None Detected [facility] [facility] Comment on above: Urine Opiates Cutoff : < 300 ng/mL = None Detected Oxycodone Ql (U) None Detected None Detected [facility] Comment on above: Urine Oxycodone Cuto ff: < 100 ng/mL = None Detected Screen results shoul d be used for treatment purposes only. Specimen will be kept for 1 week, if the sample is adequate. Confirmation testing can be initiated by calling the lab within 1 week. [facility] ECG 12-LEADon 07-08-2020 Atrial Rate 163 BPM [facility] Q-T Interval 320 ms [facility] QRS Duration 88 ms [facility] QTC Calculation (Bezet) 505 ms [facility] R [place] 59 degrees [facility] T [place] -16 degrees [facility] Ventricular Rate 150 BPM [facility] th Atrial fibrillation with rapid ventricular response Nonspecific ST abnormality Abnormal QRS-T angle, consider primary T wave abnormality Abnormal ECG ECG Cart Interpretation see physician note for interpretation. Confirmed by Whit Pearson ([id number]) on 07/08/2020 1:51:47 PM [facility] Atrial Rate 76 BPM [facility] P [place] 68 degrees [facility] P-R Interval 176 ms [facility] Q-T Interval 414 ms [facility] QRS Duration 86 ms [facility] QTC Calculation (Bezet) 465 ms [facility] R [place] 50 degrees [facility] T [place] 52 degrees [facility] Ventricular Rate 76 BPM [facility] Normal sinus rhythm Normal ECG Confirmed by Memo Bernstein MD ([id number]) on 07/08/2020 1:39:52 PM [facility] ECHOCARDIOGRAM 2D COMPLETEon 07-08-2020 Aortic valve area 3.80277 cm [facility] AV mean gradient 3.88282 mmHg [facility] AV peak gradient 5.16666 mmHg [facility] EF 75.4831 % [facility] Interface, Rad In He artlab [employer]per Echopacs - 07/08/2020 9:28 AM EST Patient Info Name: CARMEN GILMAN Age: 54 years : 1965 Gender: Male Ht: 183 cm Wt: 136 kg BSA: 2.68 m2 HR: 71 bpm BP: 91 / 57 mmHg Heart Rhythm: Atrial Flutter, Atrial Fibrillation, Sinus Rhythm Technical Quality: Technically difficult, Fair Exam Date: 07/08/2020 7:02 AM Patient Status: Inpatient Brake Lining Maker: Jenise Carcamo RCDS Exam Type: ECHOCARDIOGRAM COMPLETE W CONTRAST Study Info Indications I48.92 - Unspecified atrial flutter I48.91 - Unspecified atrial fibrillation Referring Physician: CRICKET Howard; [id number] BMI: 40.55 kg/m2 Summary 1. Technically fair quality study. Definity contrast used for opacification of endocardial border. 2. Normal left ventricular size with hyperdynamic systolic function, LVEF by biplane measurement 75%. 3. Normal diastolic filling. 4. Enlarged right ventricle with grossly normal systolic function.. 5. Mild biatrial enlargement. 6. No hemodynamically valvular disease. Estimated RVSP 25 mmHg.. 7. Hypermobile interatrial septum with no evidence of intracardiac shunting by agitated saline or color Doppler. History/Risk Factors Hypertension: Yes Chronic Lung Disease: Yes Obesity: Yes Congestive Heart Failure (CHF): Hx CHF Date of Last Tobacco Use: 01/25/2007 Diabetes Mellitus: Yes COPD: On Meds Tobacco Use: Former Family History: Diabetes Mellitus, Coronary Artery Disease History/Risk Factors Acute on chronic respiratory failure with hypoxia and hypercapnia. Procedure(s): Complete two-dimensional, color flow and Doppler transthoracic echocardiogram is performed. Definity explained to patient. Patient verbalizes understanding and agrees to proceed. Definity 1.3ml/8.7ml normal sterile saline 1 ml total given IV over 30-60 seconds. 9ml Saline agitated with 1ml air, injected IV push per Lab Protocol. Left Ventricle Left ventricular chamber dimension is normal. Left ventricular systolic function is hyperdynamic with an ejection fraction by Biplane Method of Discs of 75 %. Normal left ventricular mass. Left ventricular segmental wall motion is normal. The left ventricular diastolic function is normal. Right Ventricle Right ventricular chamber dimension is enlarged. Right ventricular systolic function is normal. Left Atria Left atrial chamber dimension is mildly enlarged. Right Atria Right atrial chamber dimension is mildly enlarged. Atrial Septum Hypermobile interatrial septum with no evidence of intracardiac shunting by color Doppler or agitated saline. Aortic Valve The aortic valve is trileaflet. There is no aortic valve stenosis with a peak velocity of 1.2 m/s, mean gradient of 4 mmHg, and aortic valve area of 3.93 cm2. There is no aortic valve regurgitation. Pulmonic Valve The pulmonic valve is not well visualized. There is no pulmonic valve stenosis. There is trace pulmonic regurgitation. Mitral Valve The mitral valve has normal leaflets. There is no mitral valve stenosis. There is trace mitral valve regurgitation. Tricuspid Valve The tricuspid valve leaflets are normal. There is no significant tricuspid valve stenosis. There is trace tricuspid valve regurgitation. There is no pulmonary hypertension, estimated right ventricle systolic pressure is 25 mmHg. Pericardium/Pleural The pericardium appears normal. There is no pericardial effusion. Anterior fat pad noted. Inferior Vena Cava Normal inferior vena cava with >50% collapse upon inspiration consistent with normal right atrial pressure. Aorta The aortic measurements are indexed to age and body surface area. The aortic root is normal measuring 3.52 cm with an index of 1.31 cm/m2. Left Ventricular Outflow Tract Name Value Normal LVOT 2D LVOT Diameter 2.22 cm LVOT Doppler LVOT Peak Velocity 1.18 m/s LVOT Peak Gradient 6 mmHg LVOT Mean Gradient 3 mmHg LVOT VTI 26.48 cm LVOT VTI/AV VTI Ratio 1.01 LVOT Stroke Volume 102.80 ml LVOT Stroke Index 40.63 ml/m2 LVOT CO 6.93 l/min LVOT CI 2.58 L/min/m2 Pulmonic Valve Name Value Normal PV Doppler PV Peak Velocity 1.04 m/s PV Peak Gradient 4 mmHg PV Mean Gradient 3 mmHg PV VTI 25.43 cm Mitral Valve Name Value Normal MV Doppler MV Peak Velocity 1.22 m/s MV Peak Gradient 6 mmHg MV Mean Gradient 2 mmHg MV VTI 21.72 cm MV Decel [place] 560.70 cm/s2 MV PHT 53 ms MV Area (PHT) 4.11 cm2 4.00-5.00 MV Area (Cont Eq VTI) 4.73 cm2 MV Area Index (Cont Eq VTI) 1.76 cm2/m2 MV Diastolic Function MV E Peak Velocity 1.03 m/s MV A Peak Velocity 0.56 m/s MV E/A 1.86 MV Decel Time 184 ms MV Annular TDI MV Septal e' Velocity 15.16 cm/s >=8.00 MV E/e' (Septal) 6.65 <=8.00 MV Lateral e' Velocity 16.97 cm/s >=10.00 MV E/e' (Lateral) 6.25 <=8.00 MV e' Average 16.07 MV E/e' (Average) 6.45 Tricuspid Valve Name Value Normal TV Regurgitation Doppler TR Peak Velocity 2.37 m/s TR Peak Gradient 21 mmHg Estimated PAP/RSVP RA Pressure 15 mmHg <=5 PA Systolic Pressure 25 mmHg <=36 RV Systolic Pressure 37 mmHg <36 Aorta Name Value Normal Ascending Aorta Ao Root Diameter (2D) 3.52 cm 3.10-3.70 Ao Root Diam Index (2D) 1.31 cm/m2 1.50-1.90 Venous Name Value Normal IVC/SVC IVC Diameter (Exp 2D) 3.36 cm <=2.10 Aortic Valve Name Value Normal AV Doppler AV Peak Velocity 1.2 m/s AV Peak Gradient 6 mmHg AV Mean Gradient 4 mmHg AV VTI 26.19 cm AV Area (Cont Eq VTI) 3.93 cm2 AV Area Index (Cont Eq VTI) 1 cm2/m2 AV Area (Cont Eq Gaetano) 3.80 cm2 AV Area Index (Cont Eq Gaetano) 1 cm2/m2 LVOT Vmax/AV Vmax 0.98 LVOT VTI/AV VTI Ratio 1.01 AV Regurgitation 2D LVOT Area 3.88 cm2 Ventricles Name Value Normal LV Dimensions 2D/MM IVS Diastolic Thickness (2D) 1.12 cm 0.60-1.00 LVID Diastole (2D) 4.47 cm 4.20-5.80 LVIW Diastolic Thickness (2D) 0.82 cm 0.60-1.00 LVID Systole (2D) 2.51 cm 2.50-4.00 LVOT Diameter 2.22 cm LV Mass (2D Cubed) 146 g 88-224 LV Mass Index (2D Cubed) 54 g/m2 49-115 Relative Wall Thickness (2D) 0.37 <=0.42 LV Fractional Shortening/Ejection Fraction 2D/MM LV Fractional Shortening (2D) 44 % 25-43 LV EF (2D Teicholz) 75 % 52-72 LV Diastolic Volume (4C MOD) 119 ml LV Systolic Volume (4C MOD) 29 ml LV EF (4C MOD) 75 % LV Diastolic Volume (2C MOD) 138 ml LV Systolic Volume (2C MOD) 35 ml LV EF (2C MOD) 75 % LV Diastolic Volume (BP MOD) 130.93 ml 62.00-150.00 LV Diastolic Volume Index (BP MOD) 48.82 ml/m2 34.00-74.00 LV Systolic Volume (BP MOD) 32.10 ml 21.00-61.00 LV Systolic Volume Index (BP MOD) 11.97 ml/m2 11.00-31.00 LV EF (BP MOD) 75 % 55-70 LV Diastolic Length (4C) 9.07 cm LV Systolic Length (4C) 6.81 cm LV Stroke Volume (4C MOD) 89.98 ml RV Dimensions 2D/MM RV Basal Diastolic Dimension 4.06 cm 2.50-4.10 TAPSE 2.88 cm >=1.70 RV Systolic Function RV s' Velocity 0.17 m/s 0.10-0.19 Atria Name Value Normal LA Dimensions LA Volume (4C MOD) 78.92 ml LA Volume (2C MOD) 94.16 ml LA Volume (4C A-L) 82.31 ml LA Volume (2C A-L) 97.29 ml LA Volume (BP A-L) 91.06 ml LA Volume Index (BP A-L) 33.95 ml/m2 <=34.00 LA Volume (BP MOD) 87.59 ml LA Volume Index (BP MOD) 32.66 ml/m2 16.00-34.00 RA Dimensions RA Systolic Major [place] Length (4C) 6.58 cm <=5.30 RA Area (4C) 21.26 cm2 <=18.00 RA Area (4C) Index 7.93 cm2/m2 RA ESV (4C MOD) 58.58 ml 18.00-32.00 RA ESV Index (4C MOD) 21.84 ml/m2 <=32.00 Report Signatures Finalized by Liz Raya MD on 07/08/2020 09:27 AM [facility] Patient Info Name: Micheal GILMAN Age: 54 years : 1965 Gender: Male Ht: 183 cm Wt: 136 kg BSA: 2.68 m2 HR: 71 bpm BP: 91 / 57 mmHg Heart Rhythm: Atrial Flutter, Atrial Fibrillation, Sinus Rhythm Technical Quality: Technically difficult, Fair Exam Date: 07/08/2020 7:02 AM Patient Status: Inpatient Brake Lining Maker: Jenise Carcamo RCDS Exam Type: ECHOCARDIOGRAM COMPLETE W CONTRAST Study Info Indications I48.92 - Unspecified atrial flutter I48.91 - Unspecified atrial fibrillation Referring Physician: CRICKET Howard; [id number] BMI: 40.55 kg/m2 Summary 1. Technically fair quality study. Definity contrast used for opacification of endocardial border. 2. Normal left ventricular size with hyperdynamic systolic function, LVEF by biplane measurement 75%. 3. Normal diastolic filling. 4. Enlarged right ventricle with grossly normal systolic function.. 5. Mild biatrial enlargement. 6. No hemodynamically valvular disease. Estimated RVSP 25 mmHg.. 7. Hypermobile interatrial septum with no evidence of intracardiac shunting by agitated saline or color Doppler. History/Risk Factors Hypertension: Yes Chronic Lung Disease: Yes Obesity: Yes Congestive Heart Failure (CHF): Hx CHF Date of Last Tobacco Use: 01/25/2007 Diabetes Mellitus: Yes COPD: On Meds Tobacco Use: Former Family History: Diabetes Mellitus, Coronary Artery Disease History/Risk Factors Acute on chronic respiratory failure with hypoxia and hypercapnia. Procedure(s): Complete two-dimensional, color flow and Doppler transthoracic echocardiogram is performed. Definity explained to patient. Patient verbalizes understanding and agrees to proceed. Definity 1.3ml/8.7ml normal sterile saline 1 ml total given IV over 30-60 seconds. 9ml Saline agitated with 1ml air, injected IV push per Lab Protocol. Left Ventricle Left ventricular chamber dimension is normal. Left ventricular systolic function is hyperdynamic with an ejection fraction by Biplane Method of Discs of 75 %. Normal left ventricular mass. Left ventricular segmental wall motion is normal. The left ventricular diastolic function is normal. Right Ventricle Right ventricular chamber dimension is enlarged. Right ventricular systolic function is normal. Left Atria Left atrial chamber dimension is mildly enlarged. Right Atria Right atrial chamber dimension is mildly enlarged. Atrial Septum Hypermobile interatrial septum with no evidence of intracardiac shunting by color Doppler or agitated saline. Aortic Valve The aortic valve is trileaflet. There is no aortic valve stenosis with a peak velocity of 1.2 m/s, mean gradient of 4 mmHg, and aortic valve area of 3.93 cm2. There is no aortic valve regurgitation. Pulmonic Valve The pulmonic valve is not well visualized. There is no pulmonic valve stenosis. There is trace pulmonic regurgitation. Mitral Valve The mitral valve has normal leaflets. There is no mitral valve stenosis. There is trace mitral valve regurgitation. Tricuspid Valve The tricuspid valve leaflets are normal. There is no significant tricuspid valve stenosis. There is trace tricuspid valve regurgitation. There is no pulmonary hypertension, estimated right ventricle systolic pressure is 25 mmHg. Pericardium/Pleural The pericardium appears normal. There is no pericardial effusion. Anterior fat pad noted. Inferior Vena Cava Normal inferior vena cava with >50% collapse upon inspiration consistent with normal right atrial pressure. Aorta The aortic measurements are indexed to age and body surface area. The aortic root is normal measuring 3.52 cm with an index of 1.31 cm/m2. Left Ventricular Outflow Tract Name Value Normal LVOT 2D LVOT Diameter 2.22 cm LVOT Doppler LVOT Peak Velocity 1.18 m/s LVOT Peak Gradient 6 mmHg LVOT Mean Gradient 3 mmHg LVOT VTI 26.48 cm LVOT VTI/AV VTI Ratio 1.01 LVOT Stroke Volume 102.80 ml LVOT Stroke Index 40.63 ml/m2 LVOT CO 6.93 l/min LVOT CI 2.58 L/min/m2 Pulmonic Valve Name Value Normal PV Doppler PV Peak Velocity 1.04 m/s PV Peak Gradient 4 mmHg PV Mean Gradient 3 mmHg PV VTI 25.43 cm Mitral Valve Name Value Normal MV Doppler MV Peak Velocity 1.22 m/s MV Peak Gradient 6 mmHg MV Mean Gradient 2 mmHg MV VTI 21.72 cm MV Decel [place] 560.70 cm/s2 MV PHT 53 ms MV Area (PHT) 4.11 cm2 4.00-5.00 MV Area (Cont Eq VTI) 4.73 cm2 MV Area Index (Cont Eq VTI) 1.76 cm2/m2 MV Diastolic Function MV E Peak Velocity 1.03 m/s MV A Peak Velocity 0.56 m/s MV E/A 1.86 MV Decel Time 184 ms MV Annular TDI MV Septal e' Velocity 15.16 cm/s >=8.00 MV E/e' (Septal) 6.65 <=8.00 MV Lateral e' Velocity 16.97 cm/s >=10.00 MV E/e' (Lateral) 6.25 <=8.00 MV e' Average 16.07 MV E/e' (Average) 6.45 Tricuspid Valve Name Value Normal TV Regurgitation Doppler TR Peak Velocity 2.37 m/s TR Peak Gradient 21 mmHg Estimated PAP/RSVP RA Pressure 15 mmHg <=5 PA Systolic Pressure 25 mmHg <=36 RV Systolic Pressure 37 mmHg <36 Aorta Name Value Normal Ascending Aorta Ao Root Diameter (2D) 3.52 cm 3.10-3.70 Ao Root Diam Index (2D) 1.31 cm/m2 1.50-1.90 Venous Name Value Normal IVC/SVC IVC Diameter (Exp 2D) 3.36 cm <=2.10 Aortic Valve Name Value Normal AV Doppler AV Peak Velocity 1.2 m/s AV Peak Gradient 6 mmHg AV Mean Gradient 4 mmHg AV VTI 26.19 cm AV Area (Cont Eq VTI) 3.93 cm2 AV Area Index (Cont Eq VTI) 1 cm2/m2 AV Area (Cont Eq Gaetano) 3.80 cm2 AV Area Index (Cont Eq Gaetano) 1 cm2/m2 LVOT Vmax/AV Vmax 0.98 LVOT VTI/AV VTI Ratio 1.01 AV Regurgitation 2D LVOT Area 3.88 cm2 Ventricles Name Value Normal LV Dimensions 2D/MM IVS Diastolic Thickness (2D) 1.12 cm 0.60-1.00 LVID Diastole (2D) 4.47 cm 4.20-5.80 LVIW Diastolic Thickness (2D) 0.82 cm 0.60-1.00 LVID Systole (2D) 2.51 cm 2.50-4.00 LVOT Diameter 2.22 cm LV Mass (2D Cubed) 146 g 88-224 LV Mass Index (2D Cubed) 54 g/m2 49-115 Relative Wall Thickness (2D) 0.37 <=0.42 LV Fractional Shortening/Ejection Fraction 2D/MM LV Fractional Shortening (2D) 44 % 25-43 LV EF (2D Teicholz) 75 % 52-72 LV Diastolic Volume (4C MOD) 119 ml LV Systolic Volume (4C MOD) 29 ml LV EF (4C MOD) 75 % LV Diastolic Volume (2C MOD) 138 ml LV Systolic Volume (2C MOD) 35 ml LV EF (2C MOD) 75 % LV Diastolic Volume (BP MOD) 130.93 ml 62.00-150.00 LV Diastolic Volume Index (BP MOD) 48.82 ml/m2 34.00-74.00 LV Systolic Volume (BP MOD) 32.10 ml 21.00-61.00 LV Systolic Volume Index (BP MOD) 11.97 ml/m2 11.00-31.00 LV EF (BP MOD) 75 % 55-70 LV Diastolic Length (4C) 9.07 cm LV Systolic Length (4C) 6.81 cm LV Stroke Volume (4C MOD) 89.98 ml RV Dimensions 2D/MM RV Basal Diastolic Dimension 4.06 cm 2.50-4.10 TAPSE 2.88 cm >=1.70 RV Systolic Function RV s' Velocity 0.17 m/s 0.10-0.19 Atria Name Value Normal LA Dimensions LA Volume (4C MOD) 78.92 ml LA Volume (2C MOD) 94.16 ml LA Volume (4C A-L) 82.31 ml LA Volume (2C A-L) 97.29 ml LA Volume (BP A-L) 91.06 ml LA Volume Index (BP A-L) 33.95 ml/m2 <=34.00 LA Volume (BP MOD) 87.59 ml LA Volume Index (BP MOD) 32.66 ml/m2 16.00-34.00 RA Dimensions RA Systolic Major [place] Length (4C) 6.58 cm <=5.30 RA Area (4C) 21.26 cm2 <=18.00 RA Area (4C) Index 7.93 cm2/m2 RA ESV (4C MOD) 58.58 ml 18.00-32.00 RA ESV Index (4C MOD) 21.84 ml/m2 <=32.00 Report Signatures Finalized by Liz Raya MD on 07/08/2020 09:27 AM [facility] ECHOCARDIOGRAM COMPLETE W CO NTRASTon 07-08-2020 ECHOCARDIOGRAM COMPLETE W CONTRAST Patient Info Name: CARMEN GILMAN Age: 54 years : 1965 Gender: Male Ht: 183 cm Wt: 136 kg BSA: 2.68 m2 HR: 71 bpm BP: 91 / 57 mmHg Heart Rhythm: Atrial Flutter, Atrial Fibrillation, Sinus Rhythm Technical Quality: Technically difficult, Fair Exam Date: 07/08/2020 7:02 AM Patient Status: Inpatient Brake Lining Maker: Jenise Carcamo RCDS Exam Type: ECHOCARDIOGRAM COMPLETE W CONTRAST Study Info Indications I48.92 - Unspecified atrial flutter I48.91 - Unspecified atrial fibrillation Referring Physician: CRICKET Howard; [id number] BMI: 40.55 kg/m2 Summary 1. Technically fair quality study. Definity contrast used for opacification of endocardial border. 2. Normal left ventricular size with hyperdynamic systolic function, LVEF by biplane measurement 75%. 3. Normal diastolic filling. 4. Enlarged right ventricle with grossly normal systolic function.. 5. Mild biatrial enlargement. 6. No hemodynamically valvular disease. Estimated RVSP 25 mmHg.. 7. Hypermobile interatrial septum with no evidence of intracardiac shunting by agitated saline or color Doppler. History/Risk Factors Hypertension: Yes Chronic Lung Disease: Yes Obesity: Yes Congestive Heart Failure (CHF): Hx CHF Date of Last Tobacco Use: 01/25/2007 Diabetes Mellitus: Yes COPD: On Meds Tobacco Use: Former Family History: Diabetes Mellitus, Coronary Artery Disease History/Risk Factors Acute on chronic respiratory failure with hypoxia and hypercapnia. Procedure(s): Complete two-dimensional, color flow and Doppler transthoracic echocardiogram is performed. Definity explained to patient. Patient verbalizes understanding and agrees to proceed. Definity 1.3ml/8.7ml normal sterile saline 1 ml total given IV over 30-60 seconds. 9ml Saline agitated with 1ml air, injected IV push per Lab Protocol. Left Ventricle Left ventricular chamber dimension is normal. Left ventricular systolic function is hyperdynamic with an ejection fraction by Biplane Method of Discs of 75 %. Normal left ventricular mass. Left ventricular segmental wall motion is normal. The left ventricular diastolic function is normal. Right Ventricle Right ventricular chamber dimension is enlarged. Right ventricular systolic function is normal. Left Atria Left atrial chamber dimension is mildly enlarged. Right Atria Right atrial chamber dimension is mildly enlarged. Atrial Septum Hypermobile interatrial septum with no evidence of intracardiac shunting by color Doppler or agitated saline. Aortic Valve The aortic valve is trileaflet. There is no aortic valve stenosis with a peak velocity of 1.2 m/s, mean gradient of 4 mmHg, and aortic valve area of 3.93 cm2. There is no aortic valve regurgitation. Pulmonic Valve The pulmonic valve is not well visualized. There is no pulmonic valve stenosis. There is trace pulmonic regurgitation. Mitral Valve The mitral valve has normal leaflets. There is no mitral valve stenosis. There is trace mitral valve regurgitation. Tricuspid Valve The tricuspid valve leaflets are normal. There is no significant tricuspid valve stenosis. There is trace tricuspid valve regurgitation. There is no pulmonary hypertension, estimated right ventricle systolic pressure is 25 mmHg. Pericardium/Pleural The pericardium appears normal. There is no pericardial effusion. Anterior fat pad noted. Inferior Vena Cava Normal inferior vena cava with >50% collapse upon inspiration consistent with normal right atrial pressure. Aorta The aortic measurements are indexed to age and body surface area. The aortic root is normal measuring 3.52 cm with an index of 1.31 cm/m2. Left Ventricular Outflow Tract Name Value Normal LVOT 2D LVOT Diameter 2.22 cm LVOT Doppler LVOT Peak Velocity 1.18 m/s LVOT Peak Gradient 6 mmHg LVOT Mean Gradient 3 mmHg LVOT VTI 26.48 cm LVOT VTI/AV VTI Ratio 1.01 LVOT Stroke Volume 102.80 ml LVOT Stroke Index 40.63 ml/m2 LVOT CO 6.93 l/min LVOT CI 2.58 L/min/m2 Pulmonic Valve Name Value Normal PV Doppler PV Peak Velocity 1.04 m/s PV Peak Gradient 4 mmHg PV Mean Gradient 3 mmHg PV VTI 25.43 cm Mitral Valve Name Value Normal MV Doppler MV Peak Velocity 1.22 m/s MV Peak Gradient 6 mmHg MV Mean Gradient 2 mmHg MV VTI 21.72 cm MV Decel [place] 560.70 cm/s2 MV PHT 53 ms MV Area (PHT) 4.11 cm2 4.00-5.00 MV Area (Cont Eq VTI) 4.73 cm2 MV Area Index (Cont Eq VTI) 1.76 cm2/m2 MV Diastolic Function MV E Peak Velocity 1.03 m/s MV A Peak Velocity 0.56 m/s MV E/A 1.86 MV Decel Time 184 ms MV Annular TDI MV Septal e' Velocity 15.16 cm/s >=8.00 MV E/e' (Septal) 6.65 <=8.00 MV Lateral e' Velocity 16.97 cm/s >=10.00 MV E/e' (Lateral) 6.25 <=8.00 MV e' Average 16.07 MV E/e' (Average) 6.45 Tricuspid Valve Name Value Normal TV Regurgitation Doppler TR Peak Velocity 2.37 m/s TR Peak Gradient 21 mmHg Estimated PAP/RSVP RA Pressure 15 mmHg <=5 PA Systolic Pressure 25 mmHg <=36 RV Systolic Pressure 37 mmHg <36 Aorta Name Value Normal Ascending Aorta Ao Root Diameter (2D) 3.52 cm 3.10-3.70 Ao Root Diam Index (2D) 1.31 cm/m2 1.50-1.90 Venous Name Value Normal IVC/SVC IVC Diameter (Exp 2D) 3.36 cm <=2.10 Aortic Valve Name Value Normal AV Doppler AV Peak Velocity 1.2 m/s AV Peak Gradient 6 mmHg AV Mean Gradient 4 mmHg AV VTI 26.19 cm AV Area (Cont Eq VTI) 3.93 cm2 AV Area Index (Cont Eq VTI) 1 cm2/m2 AV Area (Cont Eq Gaetano) 3.80 cm2 AV Area Index (Cont Eq Gaetano) 1 cm2/m2 LVOT Vmax/AV Vmax 0.98 LVOT VTI/AV VTI Ratio 1.01 AV Regurgitation 2D LVOT Area 3.88 cm2 Ventricles Name Value Normal LV Dimensions 2D/MM IVS Diastolic Thickness (2D) 1.12 cm 0.60-1.00 LVID Diastole (2D) 4.47 cm 4.20-5.80 LVIW Diastolic Thickness (2D) 0.82 cm 0.60-1.00 LVID Systole (2D) 2.51 cm 2.50-4.00 LVOT Diameter 2.22 cm LV Mass (2D Cubed) 146 g 88-224 LV Mass Index (2D Cubed) 54 g/m2 49-115 Relative Wall Thickness (2D) 0.37 <=0.42 LV Fractional Shortening/Ejection Fraction 2D/MM LV Fractional Shortening (2D) 44 % 25-43 LV EF (2D Teicholz) 75 % 52-72 LV Diastolic Volume (4C MOD) 119 ml LV Systolic Volume (4C MOD) 29 ml LV EF (4C MOD) 75 % LV Diastolic Volume (2C MOD) 138 ml LV Systolic Volume (2C MOD) 35 ml LV EF (2C MOD) 75 % LV Diastolic Volume (BP MOD) 130.93 ml 62.00-150.00 LV Diastolic Volume Index (BP MOD) 48.82 ml/m2 34.00-74.00 LV Systolic Volume (BP MOD) 32.10 ml 21.00-61.00 LV Systolic Volume Index (BP MOD) 11.97 ml/m2 11.00-31.00 LV EF (BP MOD) 75 % 55-70 LV Diastolic Length (4C) 9.07 cm LV Systolic Length (4C) 6.81 cm LV Stroke Volume (4C MOD) 89.98 ml RV Dimensions 2D/MM RV Basal Diastolic Dimension 4.06 cm 2.50-4.10 TAPSE 2.88 cm >=1.70 RV Systolic Function RV s' Velocity 0.17 m/s 0.10-0.19 Atria Name Value Normal LA Dimensions LA Volume (4C MOD) 78.92 ml LA Volume (2C MOD) 94.16 ml LA Volume (4C A-L) 82.31 ml LA Volume (2C A-L) 97.29 ml LA Volume (BP A-L) 91.06 ml LA Volume Index (BP A-L) 33.95 ml/m2 <=34.00 LA Volume (BP MOD) 87.59 ml LA Volume Index (BP MOD) 32.66 ml/m2 16.00-34.00 RA Dimensions RA Systolic Major [place] Length (4C) 6.58 cm <=5.30 RA Area (4C) 21.26 cm2 <=18.00 RA Area (4C) Index 7.93 cm2/m2 RA ESV (4C MOD) 58.58 ml 18.00-32.00 RA ESV Index (4C MOD) 21.84 ml/m2 <=32.00 Report Signatures Finalized by Liz Raya MD on 07/08/2020 09:27 AM [facility] Hemoglobin A1con 07-08-2020 Average glucose Estimated from glycated hemoglobin mass conc (Bld) 111 mg/dL 68 - 114 mg/dL [facility] HbA1c (Bld) [Mass fraction] 5.5 % 4 - 5.6 % [facility] [facility] Interpretation and review of laboratory results Normal [facility] Normal: 4.0% - 5.6% Increased risk for diabetes: 5.7% - 6.4% Diabetes: >= 6.5% Pediatrics: No established reference range Estimated average glucose: 68-114 mg/dL [facility] Hepatic Function Panelon Albumin [Mass/Vol] 3.0 g/dL Low 3.2 - 5.2 g/dL [facility] ALP [Catalytic activity/Vol] 85 U/L 40 - 150 U/L [facility] ALT [Catalytic activity/Vol] 50 U/L 14 - 65 U/L [facility] AST [Catalytic activity/Vol] 57 U/L High 0 - 45 U/L [facility] Bilirubin [Mass/Vol] 0.7 mg/dL 0 - 1.3 mg/dL [facility] Bilirubin.conjugated [Mass/Vol] 0.4 mg/dL 0 - 0.4 mg/dL [facility] Interpretation and review of laboratory results Abnormal [facility] Protein [Mass/Vol] 8.4 g/dL High 6 - 8 g/dL [facility] alth IRON STUDY WITH FERRITINon 1 09-07-2019 Ferritin [Mass/Vol] 360 ng/mL 30 - 400 ng/mL [facility] Interpretation and review of laboratory results Normal [facility] Iron [Mass/Vol] 110 ug/dL [facility] h Iron binding capacity [Mass/Vol] 235 [facility] Iron saturation [Mass fraction] 47 % 20 - 50 % [facility] Lactic Acid, Plasmaon 2019 Interpretation and review of laboratory results Abnormal [facility] Lactate [Moles/Vol] 2.4 mmol/L High 0.6 - 2 mmol/L [facility] Lipid Panelon 07-08-2020 Cholesterol [Mass/Vol] 88 mg/dL Low 100 - 199 mg/dL [facility] Comment on above: National Cholesterol Education Program Guidelines: Cholesterol Desirable: <200 mg/dL Borderline High: 200-239 mg/dL High: greater than or equal to 240 mg/dL Cholesterol in HDL [Mass/Vol] 35 mg/dL Low 40 - 59 [facility] Comment on above: National Cholesterol Education Program Guidelines: HDL Cholesterol Low: <40 mg/dL Near Optimal: 40-59 mg/dL High: greater than or equal to 60 mg/dL Cholesterol in LDL [Mass/Vol] 43 mg/dL 10 - 130 mg/dL [facility] Comment on above: National Cholesterol Education Program Guidelines: LDL Cholesterol Optimal: <100 mg/dL Near Optimal/above Optimal: 100-129 mg/dL Borderline High: 130-159 mg/dL High: 160-189 mg/dL Very High: greater than or equal to 190 mg/dL Cholesterol non HDL [Mass/Vol] 53 mg/dL [facility] Comment on above: National Cholesterol Education Program Guidelines: NON HDL Cholesterol Desirable: <130 mg/dL Borderline High: 130-159 mg/dL High: 160-189 mg/dL Very High: > or = 190 mg/dL Cholesterol.total/Ch olesterol in HDL [Mass ratio] 2.5 {ratio} ratio [facility] Comment on above: Males Cholesterol/HD L Ratio: Average risk: 5.0 1/2 average risk: 3.4 2 x average risk: 9.6 Interpretation and review of laboratory results Abnormal [facility] Triglyceride [Mass/Vol] 48 mg/dL 30 - 150 mg/dL [facility] Comment on above: National Cholesterol Education Program Guidelines: Triglyceride Normal: <150 mg/dL Borderline High: 150-199 mg/dL High: 200-499 mg/dL Very High: greater than or equal to 500 mg/dL Magnesium Levelon 07-08-2020 Interpretation and review of laboratory results Normal [facility] Magnesium [Mass/Vol] 2.0 mg/dL 1.6 - 2 .4 mg/dL [facility] NT Pro BNPon 07-08-2020 Interpretation and review of laboratory results Abnormal [facility] Natriuretic peptide.B prohormone N-Terminal [Mass/Vol] 1022 pg/mL High 0 - 300 pg/mL [facility] Pride Study Cut-offs Rule In: < /= 50 Years >450 pg/mL 51 Years - 75 Years >900 pg/mL 76 Years - 99 Years >1800 pg/mL Rule Out: All patients <300 pg/mL [facility] Otheron 07-08-2020 No established refer ence range. [facility] Interpretation and review of laboratory results Normal [facility] POC ARTERIAL BLOOD GAS PANEL -PULMicheal - Shannon 07-08-2020 Alveolar-arterial oxygen Partial pressure difference 121.7 mm Hg [facility] Base excess Calc (Bld) [Moles/Vol] 1.8 mmol/L [facility] Breath rate setting Ventilator synchronized intermittent mandatory 0 [facility] CO2 (Bld) [Partial pressure] 54.8 mm[Hg] High [facility] HCO3 (Bld) [Moles/Vol] 28.6 mmol/L High 22 - 26 mmol/L [facility] Hematocrit (BldA) [Volume fraction] 32.0 % Low 41 - 53 % [facility] Hemoglobin (Bld) [Mass/Vol] 10.4 g/dL Low 13.5 - 18 g/dL [facility] Inhaled oxygen concentration 40 % [facility] Interpretation and review of laboratory results Abnormal [facility] Oxygen (Bld) [Partial pressure] 88 mm[Hg] [facility] PEEP Respiratory system 5 [facility] pH (Bld) 7.33 [pH] Low [facility] SaO2% (BldA) [Mass fraction] 96.6 % 92 - 99 % [facility] Specimen source Nom (Unsp spec) Radial, right [facility] Tidal volume setting Ventilator 600 [facility] POC Glucoseon 07-08-2020 Glucose [Mass/Vol] 187 mg/dL High 65 - 99 mg/dL [facility] Interpretation and review of laboratory results Abnormal [facility] Glucose [Mass/Vol] 133 mg/dL High 65 - 99 mg/dL [facility] Interpretation and review of laboratory results Abnormal [facility] Glucose [Mass/Vol] 180 mg/dL High 65 - 99 mg/dL [facility] Interpretation and review of laboratory results Abnormal [facility] Glucose [Mass/Vol] 147 mg/dL High 65 - 99 mg/dL [facility] Interpretation and review of laboratory results Abnormal [facility] PT/INRon 07-08-2020 INR Coag (PPP) [Relative time] 1.1 {INR} [facility] PT Coag (PPP) [Time] 14.1 s [facility] During the induction phase of oral anticoagulation, the INR may not reflect the anticoagulation status of the patient. Therapeutic ranges for INR's are: Most clinical situations: INR 2.0-3.0 Mechanical Prosthetic Valve: INR 2.5-3.5 Critical: INR >5.0 [facility] Protein, Urine, Randomon Protein (U) [Mass/Vol] 629.9 mg/dL [facility] Reflex Lactic Acid, Plasmaon 07-08-2020 Interpretation and review of laboratory results Normal [facility] Lactate [Moles/Vol] 1.6 mmol/L 0.6 - 2 mmol/L [facility] TROPONINon 07-08-2020 Interpretation and review of laboratory results Abnormal [facility] Troponin I.cardiac [Mass/Vol] ng/mL Critically high < -/+ 8 change ng/L [facility] Troponin I.cardiac [Mass/Vol] 152 ng/L Critically high <=45 [facility] Troponin I.cardiac [Mass/Vol] Probable acute injury or myocardial infarction. [facility] Interpretation and review of laboratory results Abnormal [facility] Troponin I.cardiac [Mass/Vol] 146 ng/L Critically high <=45 [facility] Troponin I.cardiac [Mass/Vol] Probable acute injury or myocardial infarction. [facility] Troponin I.cardiac [Mass/Vol] ng/mL Critically high < -/+ 8 change ng/L [facility] TSH with Reflex Free T4on Interpretation and review of laboratory results Normal [facility] TSH Qn 0.62 m[IU]/L [facility] URINALYSISon 07-08-2020 Bacteria Auto Ql (U) Rare Abnormal None Se en /hpf [facility] Bilirubin Ql (U) Negative Negative [facility] th Clarity Refractometry automated (U) Clear Clear [facility] Color (U) Yellow Colorless, Yellow [facility] Epithelial cells.squamous Auto (Urine sed) [#/Area] <1 [facility] Glucose Auto test strip (U) [Mass/Vol] 50 Abnormal Negative mg/dL [facility] Hemoglobin Auto test strip Ql (U) Moderate Abnormal Negative [facility] Hyaline casts Auto (Urine sed) [#/Area] 0-2 0 - 2 /lpf [facility] Interpretation and review of laboratory results Abnormal [facility] Ketones (U) [Mass/Vol] Negative Negative mg/dL [facility] Leukocyte esterase Auto test strip Ql (U) Negative Negative [facility] Mucus Auto (Urine sed) [#/Area] Rare None Seen, Rare /lpf [facility] Nitrite Auto test strip Ql (U) Negative Negative [facility] pH (U) 6.5 [pH] [facility] Protein (U) [Mass/Vol] mg/dL Abnormal Negative mg/dL [facility] RBC Auto (Urine sed) [#/Area] 84 High [facility] Specific gravity (U) [Rel density] 1.016 [facility] Transitional cells Computer assisted (U) [#/Area] <1 [facility] Urobilinogen (U) [Mass/Vol] <2.0 <2.0 mg/dL [facility] WBC Auto (Urine sed) [#/Area] 7 High [facility] Microscopic examinat ion is performed on all urinalysis samples and only positive findings are reported. The test for blood on the chemical analytic portion of urinalysis may also be positive due to hemoglobinuria and myoglobinuria and if red blood cells are present they are quantified by microscopic examination. [facility] Bacteria Auto Ql (U) None Seen None Se en /hpf [facility] Bilirubin Ql (U) Negative Negative [facility] th Clarity Refractometry automated (U) Clear Clear [facility] Color (U) Yellow Colorless, Yellow [facility] Epithelial cells.squamous Auto (Urine sed) [#/Area] <1 [facility] Glucose Auto test strip (U) [Mass/Vol] Negative Negative mg/dL [facility] Hemoglobin Auto test strip Ql (U) Moderate Abnormal Negative [facility] Interpretation and review of laboratory results Abnormal [facility] Ketones (U) [Mass/Vol] Negative Negative mg/dL [facility] Leukocyte esterase Auto test strip Ql (U) Negative Negative [facility] Mucus Auto (Urine sed) [#/Area] Rare None Seen, Rare /lpf [facility] Nitrite Auto test strip Ql (U) Negative Negative [facility] pH (U) 5.0 [pH] [facility] Protein (U) [Mass/Vol] Negative Negative mg/dL [facility] RBC Auto (Urine sed) [#/Area] 34 High [facility] Specific gravity (U) [Rel density] 1.035 High [facility] Urobilinogen (U) [Mass/Vol] <2.0 <2.0 mg/dL [facility] WBC Auto (Urine sed) [#/Area] 5 [facility] Microscopic examinat ion is performed on all urinalysis samples and only positive findings are reported. The test for blood on the chemical analytic portion of urinalysis may also be positive due to hemoglobinuria and myoglobinuria and if red blood cells are present they are quantified by microscopic examination. [facility] Urine Electrolyteson 020 Chloride (U) [Moles/Vol] 117 mmol/L [facility] Potassium (U) [Moles/Vol] 35.0 mmol/L [facility] Sodium (U) [Moles/Vol] 126 mmol/L [facility] VITAMIN D, TOTAL, 25-OHon 25-Hydroxyvitamin D2+25-Hydroxyvitamin D3 [Mass/Vol] 13 ng/mL Low 30 - 100 ng/mL [facility] Comment on above: Vitamin D status: Deficiency: <20 ng/mL Insufficiency: 20-30 ng/mL Sufficiency: 30-100 ng/mL Toxicity: >100 ng/mL Please note that Fluorescein which is used in angiography has been shown to falsely elevate the results of Vitamin D with our current assay. Evidence suggests that patients undergoing fluorescein dye angiography can retain small amounts of fluorescein in the body for up to 48 to 72 hours post-treatment. In the cases of patients with renal insufficiency, retention could be much longer. Samples should be resubmitted post fluorescein clearance to ensure there is no interference with the Vitamin D test result. Interpretation and review of laboratory results Abnormal [facility] Assay performed mallika Lira's chemiluminescence methodology. [facility] XR ABDOMEN /KUB/FLAT PLATE/1 VIEWon 07-08-2020 XR ABDOMEN /KUB/FLAT PLATE/1 VIEW EXAMINATION: XR ABDOMEN /KUB/FLAT PLATE/1 VIEW HISTORY: OG tube placement RN to call when ready. Injury/Trauma or Illness?:Illness/Other How long have you had these symptoms (acute/chronic)?:Acute Reason for exam?:OG tube placement History of cancer?:NA J96.00 Acute respiratory failure, unspecified whether with hypoxia or hypercapnia (HCC) COMPARISON: January 30, 2014 TECHNIQUE: Single AP radiograph of the abdomen was obtained. FINDINGS: Enteric tube noted with tip and side port projecting below the diaphragm. No free air. Unremarkable small bowel gas pattern. Osseous structures grossly unremarkable. No pathologic calcification. IMPRESSION: Enteric tube in adequate position. Workstation ID: [id number] Dictated by: EDINSON JAVIER on TueJul 08, 2020 2:22:34 AM EST Transcribed by: EDINSON JAVIER on TueJul 08, 2020 2:22:34 AM EST Finalized by: EDINSON JAVIER on TueJul 08, 2020 2:22:34 AM EST Normal [facility] Comment on above: Order Comment: RN to call when ready. Injury/Trauma or Illness?:Illness/Other How long have you had these symptoms (acute/chronic)?:Acute Reason for exam?:OG tube placement History of cancer?:NA Surgeries, chemotherapy, or radiation?:NA Type of Exam?:Initial Additional signs and symptoms?:n XR ABDOMEN 1 VIEWon 07-08-20 20 Enteric tube in adeq uate position. Workstation ID: [id number] [facility] Interface, Rad In Fu ji Speechq - 07/08/2020 2:25 AM EST EXAMINATION: XR ABDOMEN /KUB/FLAT PLATE/1 VIEW HISTORY: OG tube placement RN to call when ready. Injury/Trauma or Illness?:Illness/Other How long have you had these symptoms (acute/chronic)?:Acute Reason for exam?:OG tube placement History of cancer?:NA J96.00 Acute respiratory failure, unspecified whether with hypoxia or hypercapnia (HCC) COMPARISON: January 30, 2014 TECHNIQUE: Single AP radiograph of the abdomen was obtained. FINDINGS: Enteric tube noted with tip and side port projecting below the diaphragm. No free air. Unremarkable small bowel gas pattern. Osseous structures grossly unremarkable. No pathologic calcification. IMPRESSION: Enteric tube in adequate position. Workstation ID: [id number] [facility] EXAMINATION: XR ABDO MEN /KUB/FLAT PLATE/1 VIEW HISTORY: OG tube placement RN to call when ready. Injury/Trauma or Illness?:Illness/Other How long have you had these symptoms (acute/chronic)?:Acute Reason for exam?:OG tube placement History of cancer?:NA J96.00 Acute respiratory failure, unspecified whether with hypoxia or hypercapnia (HCC) COMPARISON: January 30, 2014 TECHNIQUE: Single AP radiograph of the abdomen was obtained. FINDINGS: Enteric tube noted with tip and side port projecting below the diaphragm. No free air. Unremarkable small bowel gas pattern. Osseous structures grossly unremarkable. No pathologic calcification. [facility] XR CHEST PA/APon 07-08-2020 XR CHEST PA/AP EXAMINATION: XR CHEST PA/AP 07/07/2020 10:41 pm HISTORY: ORDERING SYSTEM PROVIDED HISTORY: post intubation, TECHNOLOGIST PROVIDED HISTORY: Illness/Other Reason for exam: post intubation Cancer History: NA Surgery, RadiationHistory: NA Encounter Type: Initial Additional signs and symptoms: . ORDERING SYSTEM PROVIDED DIAGNOSIS CODES: COMPARISON: Portable chest from 04/03/2019. FINDINGS: Trachea, mediastinum and heart size are unremarkable. The lungs are clear and well aerated. No infiltrate or nodule or effusion is noted. There is a feeding tube that progresses below the diaphragm off the field of view into the upper abdomen. Tip of the ET tube is 5.5 cm above the virgie. IMPRESSION: 1. Nonacute portable chest. 2. Tip of the ET tube is 5.5 cm above the virgie. Workstation ID: [id number] Dictated by: KANIKA TERRY on TueJul 07, 2020 11:29:35 PM EST Transcribed by: KANIKA TERRY on TueJul 07, 2020 11:29:35 PM EST Finalized by: KANIKA TERRY on TueJul 07, 2020 11:29:35 PM EST Normal [facility] Comment on above: Order Comment: Injur y/Trauma or Illness?:Illness/Other How long have you had these symptoms (acute/chronic)?:Acute Reason for exam?:post intubation History of cancer?:NA Surgeries, chemotherapy, or radiation?:NA Type of Exam?:Initial Additional signs and symptoms?:. Blood Gason 07-07-2020 HCO3 (Bld) [Moles/Vol] 26.9 mmol/L High 22 - 26 mmol/L [facility] Oxygen (Bld) [Partial pressure] 531 mm[Hg] High [facility] CBC WITH AUTO DIFFERENTIALon 07-07-2020 Basophils (Bld) [#/Vol] 0.05 10*3/uL [facility] Basophils/100 WBC (Bld) 0.4 % [facility] Eosinophils (Bld) [#/Vol] 0.39 10*3/uL [facility] Eosinophils/100 WBC (Bld) 3.3 % [facility] Erythrocyte distribution width (RBC) [Entitic vol] 17.2 % High 11.6 - 14.8 % [facility] Hematocrit (Bld) [Volume fraction] 39.7 % Low 41 - 53 % [facility] Hemoglobin (Bld) [Mass/Vol] 12.0 g/dL Low 13.5 - 17.5 g/dL [facility] Immature granulocytes (Bld) [#/Vol] 0.14 10*3/uL [facility] Immature granulocytes/100 WBC (Bld) 1.20 % [facility] Comment on above: The IG parameter is the percentage of metamyelocytes, myelocytes and promyelocytes. An immature granulocyte count (IG) of 1% or more suggests the possibility of infection, an IG count of 3% is very likely related to an infection. Interpretation and review of laboratory results Abnormal [facility] Lymphocytes (Bld) [#/Vol] 4.22 10*3/uL High [facility] Lymphocytes/100 WBC (Bld) 36.1 % [facility] MCH (RBC) [Entitic mass] 22.1 pg Low 26 - 34 pg [facility] MCHC (RBC) [Mass/Vol] 30.2 g/dL Low 31 - 37 g/dL [facility] MCV (RBC) [Entitic vol] 73.1 fL Low 80 - 100 fL [facility] Monocytes (Bld) [#/Vol] 0.88 10*3/uL [facility] Monocytes/100 WBC (Bld) 7.5 % [facility] Neutrophils (Bld) [#/Vol] 6.01 10*3/uL [facility] Neutrophils/100 WBC (Bld) 51.5 % [facility] Nucleated RBC (Bld) [#/Vol] 0.03 10*3/uL High [facility] Nucleated RBC/100 WBC (Bld) [Ratio] 0.3 % [facility] Platelet mean volume (Bld) [Entitic vol] 10.0 fL 9.4 - 12.4 fL [facility] Platelets (Bld) [#/Vol] 237 10*3/uL [facility] RBC (Bld) [#/Vol] 5.43 10*6/uL [facility] WBC (Bld) [#/Vol] 11.69 10*3/uL [facility] COVID-19, [facility]2019 Interpretation and review of laboratory results Normal [facility] SARS-CoV-2 Not Detected Not Detected [facility] Comment on above: This test was perfor med under the FDA's Emergency Use Authorization (EUA). Testing was performed using the [employer] ID NOW COVID-19 assay on the ID NOW platform. This test has not been approved for use in asymptomatic patients and its performance in this patient population has not been evaluated. Negative results do not rule out the presence of SARS-CoV-2/COVID-19. Fact sheets for the EUA can be found at the following links: For Healthcare Providers: https://www.fda.gov/media/590403/download For Patients: https://www.fda.gov/media/957205/download Chem 07-07-2020 Anion gap [Moles/Vol] 15 mmol/L 10 - 20 mmol/L [facility] Chloride [Moles/Vol] 104 mmol/L 98 - 11 1 mmol/L [facility] Creatinine [Mass/Vol] 1.05 mg/dL 1.00 - 1.70 [facility] GFR/1.73 sq M predicted among non-blacks MDRD (S/P/Bld) [Vol rate/Area] The eGFR should be used for monitoring renal function only and not for medication dosing. [facility] GFR/1.73 sq M.predicted CKD-EPI (S/P/Bld) [Vol rate/Area] 47 Low >=60 mL/min/1.73 m2 [facility] GFR/1.73 sq M.predicted CKD-EPI (S/P/Bld) [Vol rate/Area] 41 Low >=60 mL/min/1.73 m2 [facility] Glucose [Mass/Vol] 188 mg/dL High 65 - 99 mg/dL [facility] HCO3 [Moles/Vol] 21 mmol/L 21 - 32 mmol/L [facility] Interpretation and review of laboratory results Abnormal [facility] Potassium [Moles/Vol] 4.2 mmol/L 3.5 - 5.1 mmol/L [facility] Sodium [Moles/Vol] 136 mmol/L 135 - 145 mmol/L [facility] Urea nitrogen [Mass/Vol] 16 mg/dL 8 - 25 mg/dL [facility] Urea nitrogen/Creatinine [Mass ratio] 15.2 mg/mg [facility] Hematologyon 07-07-2020 Hemoglobin (Bld) [Mass/Vol] 12.7 g/dL Low 13.5 - 18 g/dL [facility] pH (Bld) 7.15 [pH] Critically low [facility] INTUBATIONon 07-07-2020 Kinsey Ignacio MD 07/07/2020 11:37 PM Intubation Date/Time: 07/07/2020 11:35 PM Performed by: Kinsey Ignacio MD Authorized by: Kinsey Ignacio MD Verbal consent: not obtained Written consent: not obtained Reason consent not obtained: emergency Relevant documents: Relevent documents present and verified. Medical history, medications, allergies and physical assessment reviewed/completed Test results: test results available and properly labeled Site: site marked by physician or proceduralist who is privileged and credentialed to perform procedure Relevant imaging studies available and labeled: Yes Required items: required blood products, implants, devices, and special equipment available Patient identity confirmed: verified patient name and , hospital-assigned identification number and anonymous protocol, patient vented/unresponsive Time out: Immediately prior to procedure a "time out" was called to verify the correct patient, procedure, equipment, academic support assistant and site/side marked as required. Timeout performed at: 07/07/2020 11:35 PM Physician or proceduralist has discussed critical or nonroutine steps, procedure duration and anticipated blood loss: Yes All team members agree to proceed: Yes Indications: airway protection, altered mental status, hypercapnia, hypoxemia and respiratory distress Intubation method: video-assisted Patient status: paralyzed (RSI) Preoxygenation: BVM Patient sedated: yes ASA Classification: class 4 - patient with severe systemic disease that is a constant threat to life Mallampati Classification: III - soft palate, base of uvula visible ASA Status unchanged immediately prior to sedation administration and Heart, lungs and airway assessment completed prior to sedation Sedatives: propofol Sedation start date/time: 07/07/2020 11:36 PM Sedation end date/time: 07/07/2020 11:36 PM Laryngoscope size: Mac 3 and Glidoscope 1 Tube size: 8.0 mm Tube type: cuffed Number of attempts: 1 Ventilation between attempts: BVM Cricoid pressure: no Cords visualized: yes Post-procedure assessment: chest rise, ETCO2 monitor and CO2 detector Breath sounds: equal Cuff inflated: yes ETT to lip: 23 cm ETT to teeth: 23 cm Tube secured with: ETT alfonso, adhesive tape and umbilical tape Chest x-ray interpreted by me and other physician. Chest x-ray findings: endotracheal tube in appropriate position Patient tolerance: patient tolerated the procedure well with no immediate complications [facility] Imm/Pathon 07-07-2020 Specimen source Nom (Unsp spec) Brachial, left [facility] Metabolic Panelon 07-07-2020 CO2 (Bld) [Partial pressure] 77.0 mm[Hg] High [facility] NT Pro BNPon 07-07-2020 Interpretation and review of laboratory results Normal [facility] Natriuretic peptide.B prohormone N-Terminal [Mass/Vol] 266 pg/mL 0 - 300 pg/mL [facility] Pride Study Cut-offs Rule In: < /= 50 Years >450 pg/mL 51 Years - 75 Years >900 pg/mL 76 Years - 99 Years >1800 pg/mL Rule Out: All patients <300 pg/mL [facility] Otheron 07-07-2020 Alveolar-arterial oxygen Partial pressure difference 66.6 mm Hg [facility] Base excess Calc (Bld) [Moles/Vol] -3.5 mmol/L Low [facility] Breath rate setting Ventilator synchronized intermittent mandatory 0 [facility] Hematocrit (BldA) [Volume fraction] 38.8 % Low 41 - 53 % [facility] Inhaled oxygen concentration 100 % [facility] Interpretation and review of laboratory results Abnormal [facility] PEEP Respiratory system 5 [facility] Result Notification dr ignacio [facility] ealt Tidal volume setting Ventilator 500 [facility] Critical result acte d upon time of test. Test performed at bedside. [facility] TROPONINon 07-07-2020 Troponin I.cardiac [Mass/Vol] Normal [facility] Troponin I.cardiac [Mass/Vol] ng/mL <=45 ng/L [facility] XR Chest 1 Viewon 07-07-2020 Interface, Rad In Fu ji Speechq - 07/07/2020 11:32 PM EST EXAMINATION: XR CHEST PA/AP 07/07/2020 10:41 pm HISTORY: ORDERING SYSTEM PROVIDED HISTORY: post intubation, TECHNOLOGIST PROVIDED HISTORY: Illness/Other Reason for exam: post intubation Cancer History: NA Surgery, RadiationHistory: NA Encounter Type: Initial Additional signs and symptoms: . ORDERING SYSTEM PROVIDED DIAGNOSIS CODES: COMPARISON: Portable chest from 04/03/2019. FINDINGS: Trachea, mediastinum and heart size are unremarkable. The lungs are clear and well aerated. No infiltrate or nodule or effusion is noted. There is a feeding tube that progresses below the diaphragm off the field of view into the upper abdomen. Tip of the ET tube is 5.5 cm above the virgie. IMPRESSION: 1. Nonacute portable chest. 2. Tip of the ET tube is 5.5 cm above the virgie. Workstation ID: [id number] [facility] 1. Nonacute portable chest. 2. Tip of the ET tube is 5.5 cm above the virgie. Workstation ID: [id number] [facility] EXAMINATION: XR CHES T PA/AP 07/07/2020 10:41 pm HISTORY: ORDERING SYSTEM PROVIDED HISTORY: post intubation, TECHNOLOGIST PROVIDED HISTORY: Illness/Other Reason for exam: post intubation Cancer History: NA Surgery, RadiationHistory: NA Encounter Type: Initial Additional signs and symptoms: . ORDERING SYSTEM PROVIDED DIAGNOSIS CODES: COMPARISON: Portable chest from 04/03/2019. FINDINGS: Trachea, mediastinum and heart size are unremarkable. The lungs are clear and well aerated. No infiltrate or nodule or effusion is noted. There is a feeding tube that progresses below the diaphragm off the field of view into the upper abdomen. Tip of the ET tube is 5.5 cm above the virgie. [facility] XR FOOT RIGHT 3+ VIEWS (JEREMIAS DARSajan)on 04-22-2020 1. Fracture not iden tified. 2. Degenerative changes. 3. Soft tissue swelling. Workstation ID: [id number] [facility] EXAMINATION: XR FOOT RIGHT 3+ VIEWS (STANDARD) 04/22/2020 2:17 pm HISTORY: ORDERING SYSTEM PROVIDED HISTORY: Pain, TECHNOLOGIST PROVIDED HISTORY: Illness/Other Reason for exam: Bilateral Foot pain Rt>Lt., 'Left foot broken bone" Cancer History: " Surgery, RadiationHistory: unk Encounter Type: Initial Additional signs and symptoms: . ORDERING SYSTEM PROVIDED DIAGNOSIS CODES: R52 Pain COMPARISON: 07/31/2018. FINDINGS: Three views right foot with upright lateral view. Fracture not identified. There is moderate degenerative change 1st metatarsophalangeal joint. There is also degenerative changes in the tarsal metatarsal joints and the talonavicular joint. Soft tissue swelling noted in the foot and ankle. [facility] Interface, Rad In Fu ji Speechq - 04/22/2020 3:05 PM EDT EXAMINATION: XR FOOT RIGHT 3+ VIEWS (STANDARD) 04/22/2020 2:17 pm HISTORY: ORDERING SYSTEM PROVIDED HISTORY: Pain, TECHNOLOGIST PROVIDED HISTORY: Illness/Other Reason for exam: Bilateral Foot pain Rt>Lt., 'Left foot broken bone" Cancer History: " Surgery, RadiationHistory: unk Encounter Type: Initial Additional signs and symptoms: . ORDERING SYSTEM PROVIDED DIAGNOSIS CODES: R52 Pain COMPARISON: 07/31/2018. FINDINGS: Three views right foot with upright lateral view. Fracture not identified. There is moderate degenerative change 1st metatarsophalangeal joint. There is also degenerative changes in the tarsal metatarsal joints and the talonavicular joint. Soft tissue swelling noted in the foot and ankle. IMPRESSION: 1. Fracture not identified. 2. Degenerative changes. 3. Soft tissue swelling. Workstation ID: [id number] [facility] POC Glucoseon 01-08-2020 Glucose [Mass/Vol] 127 mg/dL High 65 - 99 mg/dL [facility] Interpretation and review of laboratory results Abnormal [facility] XR Knee Right 2 Views (Stand no)on 01-08-2020 Postsurgical changes without acute osseous abnormality. Workstation ID: [id number] [facility] EXAMINATION: XR KNEE RIGHT 2 VIEWS (STANDARD) 01/08/2020 9:04 am HISTORY: ORDERING SYSTEM PROVIDED HISTORY: ARTHOPLASTY, TECHNOLOGIST PROVIDED HISTORY: Illness/Other Reason for exam: arthoplasty post-op Cancer History: unk Surgery, RadiationHistory: unk Encounter Type: Initial Additional signs and symptoms: n ORDERING SYSTEM PROVIDED DIAGNOSIS CODES: M17.11 Primary osteoarthritis of right knee M17.11 Primary osteoarthritis of right knee COMPARISON: 01/03/2020 FINDINGS: There are postsurgical changes from right total knee arthroplasty. Intra-articular gas and fluid are expected postsurgical changes. No acute displaced fracture identified. Surgical tammy are noted. [facility] Interface, Rad In Fu ji Speechq - 01/08/2020 9:31 AM EDT EXAMINATION: XR KNEE RIGHT 2 VIEWS (STANDARD) 01/08/2020 9:04 am HISTORY: ORDERING SYSTEM PROVIDED HISTORY: ARTHOPLASTY, TECHNOLOGIST PROVIDED HISTORY: Illness/Other Reason for exam: arthoplasty post-op Cancer History: unk Surgery, RadiationHistory: unk Encounter Type: Initial Additional signs and symptoms: n ORDERING SYSTEM PROVIDED DIAGNOSIS CODES: M17.11 Primary osteoarthritis of right knee M17.11 Primary osteoarthritis of right knee COMPARISON: 01/03/2020 FINDINGS: There are postsurgical changes from right total knee arthroplasty. Intra-articular gas and fluid are expected postsurgical changes. No acute displaced fracture identified. Surgical tammy are noted. IMPRESSION: Postsurgical changes without acute osseous abnormality. Workstation ID: [id number] [facility] CT Knee Right Without Contra ston 01-03-2020 Right knee tricompar tmental osteoarthritis with moderate joint effusion, moderate Morgan's cyst and synovitis. No significant osteoarthritic changes of the right hip and ankle. ST/richard Workstation ID: [id number] [facility] EXAMINATION: CT KNEE RIGHT WITHOUT CONTRAST HISTORY: ORDERING SYSTEM PROVIDED HISTORY: pre operative for upcoming Rt TKR scheduled for 12/06/19, TECHNOLOGIST PROVIDED HISTORY: Illness/Other Reason for exam: rt knee osteoarthritis Encounter Type: Ongoing Additional signs and symptoms: ORDERING SYSTEM PROVIDED DIAGNOSIS CODES: M17.11 Primary osteoarthritis of right knee COMPARISON: 09/21/2019 TECHNIQUE: Axial CT imaging of the right hip, knee and ankle without contrast. Lalito protocol. Dose reduction techniques were achieved by using automated exposure control and/or adjustment of mA and/or kV according to patient size and/or use of iterative reconstruction technique. FINDINGS: KNEE: No acute osseous abnormality. Severe medial and lateral knee compartment joint space narrowing with [id number]-zh-[id number] appearance, subchondral sclerosis, subchondral cystic changes and marginal osteophytosis. Moderate patellofemoral compartment joint space narrowing with subchondral sclerosis, subchondral cystic changes and marginal osteophytosis. Moderate joint effusion with diffuse synovial thickening. Moderate Morgan's cyst. Normal surrounding muscle bulk. Scattered arteriovascular calcification. HIP: No acute osseous abnormality. No CT evidence of avascular necrosis of the femoral head. Normal alignment. No significant hip osteoarthritis. No significant joint effusion. ANKLE: No acute osseous abnormality. Normal joint alignment. No significant tibiotalar osteoarthritis. Nonspecific diffuse subcutaneous edema at the lower leg and ankle. [facility], Rad In Fu ji Speechq - 01/03/2020 5:52 PM EDT EXAMINATION: CT KNEE RIGHT WITHOUT CONTRAST HISTORY: ORDERING SYSTEM PROVIDED HISTORY: pre operative for upcoming Rt TKR scheduled for 12/06/19, TECHNOLOGIST PROVIDED HISTORY: Illness/Other Reason for exam: rt knee osteoarthritis Encounter Type: Ongoing Additional signs and symptoms: ORDERING SYSTEM PROVIDED DIAGNOSIS CODES: M17.11 Primary osteoarthritis of right knee COMPARISON: 09/21/2019 TECHNIQUE: Axial CT imaging of the right hip, knee and ankle without contrast. [place]ito protocol. Dose reduction techniques were achieved by using automated exposure control and/or adjustment of mA and/or kV according to patient size and/or use of iterative reconstruction technique. FINDINGS: KNEE: No acute osseous abnormality. Severe medial and lateral knee compartment joint space narrowing with [id number] appearance, subchondral sclerosis, subchondral cystic changes and marginal osteophytosis. Moderate patellofemoral compartment joint space narrowing with subchondral sclerosis, subchondral cystic changes and marginal osteophytosis. Moderate joint effusion with diffuse synovial thickening. Moderate Morgan's cyst. Normal surrounding muscle bulk. Scattered arteriovascular calcification. HIP: No acute osseous abnormality. No CT evidence of avascular necrosis of the femoral head. Normal alignment. No significant hip osteoarthritis. No significant joint effusion. ANKLE: No acute osseous abnormality. Normal joint alignment. No significant tibiotalar osteoarthritis. Nonspecific diffuse subcutaneous edema at the lower leg and ankle. IMPRESSION: Right knee tricompartmental osteoarthritis with moderate joint effusion, moderate Omrgan's cyst and synovitis. No significant osteoarthritic changes of the right hip and ankle. [employer] Workstation ID: [id number] [facility] Cult, Bloodon 11-12-2019 Cult, Blood Specimen Description .BLOOD Special Requests R AC 2ML Culture NO GROWTH 6 DAYS Report Status FINAL 11/12/2019 Normal [facility] Comment on above: Performed By: #### C JERAMIE SANTANA #### [facility] [address] [place] [address] Materials Engineering Technician: Todd Foster MD Cult,Bloodon 11-12-2019 Cult,Blood Specimen Description .BLOOD Special Requests 10ML R AC Culture NO GROWTH 6 DAYS Report Status FINAL 11/12/2019 Normal [facility] Comment on above: Performed By: #### C ESTHER, CP #### [facility] [address] [place] [address] Materials Engineering Technician: Todd Foster MD Cult,Respiratoryon 0 Cult,Respiratory Specimen Description .INDUCED SPUTUM Special Requests NOT REPORTED Direct Exam >10, <25 NEUTROPHILS/LPF < 10 EPITHELIAL CELLS/LPF PREDOMINANT ORGANISM: GRAM NEGATIVE COCCI MIXED BACTERIAL MORPHOTYPES ALSO PRESENT ON GRAM STAIN. Culture MORAXELLA CATARRHALIS HEAVY GROWTH BETA LACTAMASE POSITIVE THIS IS A CORRECTED REPORT PREVIOUSLY RESULTED NON LACTOSE FERMENTING GRAM NEGATIVE RODS CALLED TO KELLY ARRIAGA AT 1300 ON 11/07/19 METHICILLIN RESISTANT STAPHYLOCOCCUS AUREUS MODERATE GROWTH Report Status FINAL 11/09/2019 SUSCEPTIBILITY Organism METHICILLIN RESISTANT STAPHYLOCOCCUS AUREUS Method LIV Penicillin >=0.5 RESISTANT Cefoxitin Screen NOT REPORTED Ciprofloxacin NOT REPORTED Clindamycin <=0.25 SUSCEPTIBLE Erythromycin >=8 RESISTANT Gentamicin <=0.5 SUSCEPTIBLE Gentamicin is used only in combination with other active agents that test susceptible. Induced Clind Resist NEGATIVE Levofloxacin 4 INTERMEDIATE Linezolid NOT REPORTED Moxifloxacin NOT REPORTED Nitrofurantoin NOT REPORTED Oxacillin >=4 RESISTANT Synercid NOT REPORTED Rifampin NOT REPORTED Tetracycline <=1 SUSCEPTIBLE Tigecycline NOT REPORTED Trimethoprim/Sulfa <=10 SUSCEPTIBLE Vancomycin 1 SUSCEPTIBLE [facility] Comment on above: Performed By: #### C ESTHER, CP #### [facility] [address] [place] [address] Materials Engineering Technician: Todd Foster MD Brain Natri. Peptideon 11-05 Natriuretic peptide B (Bld) [Mass/Vol] Pro-BNP Reference Range: Normal [facility] Comment on above: Result Comment: Rule Out: <300 Combs Zone: Age <50 300-450 Age 50-75 300-900 Age >75 300-1800 Usually represents mild to moderate HF but other cardiopulmonary causes cannot be ruled out. Rule In: Age <50 >450 Age 50-75 >900 Age >75 >1800 Performed By: #### C DP, CP #### [facility] [address] [place], [place] [id number] Materials Engineering Technician: Todd Foster MD Natriuretic peptide B (Bld) [Mass/Vol] 143 pg/mL Normal <300 [facility] Comment on above: Result Comment: Pro- BNP results cannot be compared to BNP results. Performed By: #### C DP, CP #### [facility] [address] [place] [address] Materials Engineering Technician: Todd Foster MD Brain Natriuretic Peptideon 11-06-2019 Natriuretic peptide B (Bld) [Mass/Vol] Pro-BNP Reference Range: [place], [place] Comment on above: Rule Out: <300 Combs Zone: Age <50 300-450 Age 50-75 300-900 Age >75 300-1800 Usually represents mild to moderate HF but other cardiopulmonary causes cannot be ruled out. Rule In: Age <50 >450 Age 50-75 >900 Age >75 >1800 Natriuretic peptide B (Bld) [Mass/Vol] 143 pg/mL <300 [place], [place] Comment on above: Pro-BNP results [place] ot be compared to BNP results. CBC Auto Differentialon 10-20 Basophils (Bld) [#/Vol] 0.00 10*3/uL [place] Basophils/100 WBC (Bld) 0 % 0 - 2 % [place] Differential Type NOT REPORTED [place] Eosinophils (Bld) [#/Vol] 0.00 10*3/uL [place] Eosinophils/100 WBC (Bld) 1 % 0 - 5 % [place] Erythrocyte distribution width (RBC) [Ratio] 16.5 % High 12.1 - 15.2 % [place] Hematocrit (Bld) [Volume fraction] 38.4 % Low 41 - 53 % [place] Hemoglobin (Bld) [Mass/Vol] 11.9 g/dL Low 13.5 - 17.5 g/dL [place] Interpretation and review of laboratory results Abnormal [place] Lymphocytes (Bld) [#/Vol] 1.00 10*3/uL [place] Lymphocytes/100 WBC (Bld) 22 % 13 - 44 % [place] MCH (RBC) [Entitic mass] 22.6 pg Low 26 - 34 pg [place] MCHC (RBC) [Mass/Vol] 31.1 g/dL 31 - 37 g/dL [place] MCV (RBC) [Entitic vol] 72.8 fL Low 80 - 100 fL [place] Monocytes (Bld) [#/Vol] 0.50 10*3/uL [place] Monocytes/100 WBC (Bld) 11 % High 5 - 9 % [place] Platelet mean volume (Bld) [Entitic vol] NOT REPORTED 6 - 12 fL [place] Platelets (Bld) [#/Vol] NOT REPORTED [place] Platelets (Bld) [#/Vol] 134 10*3/uL [place] RBC (Bld) [#/Vol] 5.28 10*6/uL 4.5 - 5.9 m/uL [place] RBC morphology finding Nom (Bld) NOT REPORTED [place] Segmented neutrophils/100 WBC (Bld) 66 % 39 - 75 % [place] Segs Absolute 3.00 [place] WBC (Bld) [#/Vol] 4.4 10*3/uL [place] WBC (Bld) [#/Vol] NOT REPORTED per 100 WBC [place] WBC Morphology NOT REPORTED [place] CBC with Diffon 11-06-2019 Abs. Basophil 0.00 k/uL Normal 0.0-0.2 [facility] Comment on above: Performed By: #### C ESTHER CP #### [facility] [address] [place] [address] Materials Engineering Technician: Todd Foster MD Abs.Neutrophil (Seg) 3.00 k/uL Normal 2.1-6.5 [facility] Comment on above: Performed By: #### C ESTHER, CP #### [facility] [address] [place], [place] [id number] Materials Engineering Technician: Todd Foster MD Basophils/100 WBC (Bld) 0 % Normal 0-2 [facility] Comment on above: Performed By: #### C DP, CP #### [facility] [address] [place], [place] [id number] Materials Engineering Technician: Todd Foster MD Eosinophils (Bld) [#/Vol] 0.00 10*3/uL Normal 0.0-0.4 [facility] Comment on above: Performed By: #### C DP, CP #### [facility] [address] [place] [address] Materials Engineering Technician: Todd Foster MD Eosinophils/100 WBC (Bld) 1 % Normal 0-5 [facility] Comment on above: Performed By: #### C DP, CP #### [facility] [address] [place] [address] Materials Engineering Technician: Todd Foster MD Lymphocytes (Bld) [#/Vol] 1.00 10*3/uL Normal 1.0-4.8 [facility] Comment on above: Performed By: #### C DP, CP #### [facility] [address] [place] [address] Materials Engineering Technician: Todd Foster MD Lymphocytes/100 WBC (Bld) 22 % Normal 13-44 [facility] Comment on above: Performed By: #### C DP, CP #### [facility] [address] [place] [address] Materials Engineering Technician: Todd Foster MD Monocytes (Bld) [#/Vol] 0.50 10*3/uL Normal 0.0-1.0 [facility] Comment on above: Performed By: #### C DP, CP #### [facility] [address] [place] [address] Materials Engineering Technician: Todd Foster MD Monocytes/100 WBC (Bld) 11 % High 5-9 [facility] Comment on above: Performed By: #### C DP, CP #### [facility] [address] [place] [address] Materials Engineering Technician: Todd Foster MD Neutrophil (Seg) 66 % Normal 39-75 [facility] Comment on above: Performed By: #### C DP, CP #### [facility] [address] [place] [address] Materials Engineering Technician: Todd Foster MD Erythrocyte distribution width (RBC) [Ratio] 16.5 % High 12.1-15.2 [facility] Comment on above: Performed By: #### C DP, CP #### [facility] [address] [place] [address] Materials Engineering Technician: Todd Foster MD Hematocrit (Bld) [Volume fraction] 38.4 % Low 41-53 [facility] Comment on above: Performed By: #### C DP, CP #### [facility] [address] [place] [address] Materials Engineering Technician: Todd Foster MD Hemoglobin (Bld) [Mass/Vol] 11.9 g/dL Low 13.5-17.5 [facility] Comment on above: Performed By: #### C DP, CP #### [facility] [address] [place] [address] Materials Engineering Technician: Todd Foster MD MCH (RBC) [Entitic mass] 22.6 pg Low 26-34 [facility] Comment on above: Performed By: #### C DP, CP #### [facility] [address] [place] [address] Materials Engineering Technician: Todd Foster MD MCHC (RBC) [Mass/Vol] 31.1 g/dL Normal 31-37 [facility] Comment on above: Performed By: #### C DP, CP #### [facility] [address] [place] [address] Materials Engineering Technician: Todd Foster MD MCV (RBC) [Entitic vol] 72.8 fL Low 80-100 [facility] Comment on above: Performed By: #### C DP, CP #### [facility] [address] [place] [address] Materials Engineering Technician: Todd Foster MD Platelets (Bld) [#/Vol] 134 10*3/uL Low 140-450 [facility] Comment on above: Performed By: #### C DP, CP #### [facility] [address] [place] [address] Materials Engineering Technician: Todd Foster MD RBC (Bld) [#/Vol] 5.28 10*6/uL Normal 4.5-5.9 [facility] Comment on above: Performed By: #### C DP, CP #### [facility] [address] [place] [address] Materials Engineering Technician: Todd Foster MD WBC (Bld) [#/Vol] 4.4 10*3/uL Normal 3.5-11.0 [facility] Comment on above: Performed By: #### C DP, CP #### [facility] [address] [place] [address] Materials Engineering Technician: Todd Foster MD Abs.Imm.Granulocyte NOT REPORTED Normal 0.00-0.30 [facility] Comment on above: Performed By: #### C DP, CP #### [facility] [address] [place] [address] Materials Engineering Technician: Todd Foster MD Auto Diff Performed NOT REPORTED Normal [facility] Comment on above: Performed By: #### C DP, CP #### [facility] [address] [place] [address] Materials Engineering Technician: Todd Foster MD Immature granulocytes (Bld) [#/Vol] NOT REPORTED Normal 0 [facility] Comment on above: Performed By: #### C DP, CP #### [facility] [address] [place] [address] [phone] Materials Engineering Technician: Todd Foster MD NRBC Automated NOT REPORTED Normal [facility] Comment on above: Performed By: #### C DP, CP #### [facility] [address] [place] [address] [phone] Materials Engineering Technician: Todd Foster MD Platelet mean volume (Bld) [Entitic vol] NOT REPORTED Normal 6.0-12.0 [facility] Comment on above: Performed By: #### C DP, CP #### [facility] [address] [place] [address] [phone] Materials Engineering Technician: Todd Foster MD Platelets (Bld) [#/Vol] NOT REPORTED Normal [facility] Comment on above: Performed By: #### C DP, CP #### [facility] [address] [place] [address] Materials Engineering Technician: Todd Foster MD RBC morphology finding Nom (Bld) NOT REPORTED Normal [facility] Comment on above: Performed By: #### C DP, CP #### [facility] [address] [place] [address] Materials Engineering Technician: Todd Foster MD WBC Morphology NOT REPORTED Normal [facility] Comment on above: Performed By: #### C DP, CP #### [facility] [address] [place], [place] [id number] Materials Engineering Technician: Todd Foster MD CT CHEST WO CONTRASTon 11-05 CT CHEST WO CONTRAST EXAMINATION: CT SANDPI ST WO CONTRAST HISTORY: Abn cxr with recommendation CT, (+) SIRS criteria w/ HR,RR,temp, (+) hypoxia, (+) Flu swab, Hx COPD. COMPARISON: CT chest, 08/18/2015. TECHNIQUE: CT examination of the chest without IV contrast. Coronal and sagittal reformations were performed. Dose reduction techniques were achieved by using automated exposure control and/or adjustment of mA and/or kV according to patient size and/or use of iterative reconstruction technique. FINDINGS: No thoracic adenopathy is seen. Cardiac size is normal. There is no pleural effusion. There are minimal aortic arch calcifications. No aortic aneurysm is seen. The thyroid gland is unremarkable. No thoracic adenopathy is identified. There is mild bilateral gynecomastia. Central bronchial wall thickening is noted with mild tree-in-bud infiltrate scattered in both lungs, most prominent in the left lower lobe. This is compatible with small airway infection. No focal consolidation, pleural effusion, or pneumothorax is seen. Splenomegaly is suggested on the last images of this exam, incompletely evaluated. The nonenhanced upper abdomen is otherwise unremarkable. Several old healed right posterior rib fractures are noted. No acute osseous abnormality is seen. IMPRESSION: 1. Findings consistent with multifocal small airway infection, most prominent in the left lower lobe. No other acute cardiopulmonary findings are seen. 2. Mild bilateral gynecomastia. Interpreted by: Antony Molina MD Signed by: Antony Molina MD 11/06/19 Final result Normal [facility] Jhony, Mhpn Incoming R adiant Results From [facility] - 11/06/2019 5:40 AM EDT EXAMINATION: CT CHEST WO CONTRAST HISTORY: Abn cxr with recommendation CT, (+) SIRS criteria w/ HR,RR,temp, (+) hypoxia, (+) Flu swab, Hx COPD. COMPARISON: CT chest, 08/18/2015. TECHNIQUE: CT examination of the chest without IV contrast. Coronal and sagittal reformations were performed. Dose reduction techniques were achieved by using automated exposure control and/or adjustment of mA and/or kV according to patient size and/or use of iterative reconstruction technique. FINDINGS: No thoracic adenopathy is seen. Cardiac size is normal. There is no pleural effusion. There are minimal aortic arch calcifications. No aortic aneurysm is seen. The thyroid gland is unremarkable. No thoracic adenopathy is identified. There is mild bilateral gynecomastia. Central bronchial wall thickening is noted with mild tree-in-bud infiltrate scattered in both lungs, most prominent in the left lower lobe. This is compatible with small airway infection. No focal consolidation, pleural effusion, or pneumothorax is seen. Splenomegaly is suggested on the last images of this exam, incompletely evaluated. The nonenhanced upper abdomen is otherwise unremarkable. Several old healed right posterior rib fractures are noted. No acute osseous abnormality is seen. IMPRESSION: 1. Findings consistent with multifocal small airway infection, most prominent in the left lower lobe. No other acute cardiopulmonary findings are seen. 2. Mild bilateral gynecomastia. [place] 1. Findings consiste nt with multifocal small airway infection, most prominent in the left lower lobe. No other acute cardiopulmonary findings are seen. 2. Mild bilateral gynecomastia. [place] EXAMINATION: CT CHES T WO CONTRAST HISTORY: Abn cxr with recommendation CT, (+) SIRS criteria w/ HR,RR,temp, (+) hypoxia, (+) Flu swab, Hx COPD. COMPARISON: CT chest, 08/18/2015. TECHNIQUE: CT examination of the chest without IV contrast. Coronal and sagittal reformations were performed. Dose reduction techniques were achieved by using automated exposure control and/or adjustment of mA and/or kV according to patient size and/or use of iterative reconstruction technique. FINDINGS: No thoracic adenopathy is seen. Cardiac size is normal. There is no pleural effusion. There are minimal aortic arch calcifications. No aortic aneurysm is seen. The thyroid gland is unremarkable. No thoracic adenopathy is identified. There is mild bilateral gynecomastia. Central bronchial wall thickening is noted with mild tree-in-bud infiltrate scattered in both lungs, most prominent in the left lower lobe. This is compatible with small airway infection. No focal consolidation, pleural effusion, or pneumothorax is seen. Splenomegaly is suggested on the last images of this exam, incompletely evaluated. The nonenhanced upper abdomen is otherwise unremarkable. Several old healed right posterior rib fractures are noted. No acute osseous abnormality is seen. [place] Comp Metabolic Profon 2019 (cont.) Normal [facility] Comment on above: Result Comment: Aver age GFR for 50-59 years old: 93 mL/min/1.73sq m Chronic Kidney Disease: <60 mL/min/1.73sq m Kidney failure: <15 mL/min/1.73sq m eGFR calculated using average adult body mass. Additional eGFR calculator available at: http://www.rock[employer]/multiple_crcl_2011.htm Performed By: #### C DP, CP #### [facility] [address] [place], [place] [id number] Materials Engineering Technician: Todd Foster MD Albumin [Mass/Vol] 4.3 g/dL Normal 3.5-5.2 [facility] Comment on above: Performed By: #### C DP, CP #### [facility] [address] [place], [place] [id number] Materials Engineering Technician: Todd Foster MD Alkaline Phos 78 U/L Normal 40-129 [facility] Comment on above: Performed By: #### C DP, CP #### [facility] [address] [place], [place] [id number] Materials Engineering Technician: Todd Foster MD ALT [Catalytic activity/Vol] 32 U/L Normal 5-41 [facility] Comment on above: Performed By: #### C DP, CP #### [facility] [address] [place], [place] [id number] Materials Engineering Technician: Todd Foster MD Anion gap [Moles/Vol] 12 mmol/L Normal 9-17 [facility] Comment on above: Performed By: #### C DP, CP #### [facility] [address] [place], [place] [id number] Materials Engineering Technician: Todd Foster MD AST [Catalytic activity/Vol] 40 U/L High <40 [facility] Comment on above: Performed By: #### C DP, CP #### [facility] [address] [place], [place] [id number] Materials Engineering Technician: Todd Foster MD Bilirubin Ql (U) 0.78 mg/dL Normal 0.30-1.20 [facility] Comment on above: Performed By: #### C DP, CP #### [facility] [address] [place], [place] [id number] Materials Engineering Technician: Todd Foster MD BUN/CRE Ratio 22 High 9-20 [facility] Comment on above: Performed By: #### C DP, CP #### [facility] [address] [place] [address] Materials Engineering Technician: Todd Foster MD Calcium [Mass/Vol] 9.5 mg/dL Normal 8.6-10.4 [facility] Comment on above: Performed By: #### C DP, CP #### [facility] [address] [place] [address] Materials Engineering Technician: Todd Foster MD Chloride [Moles/Vol] 96 mmol/L Low 98-107 [facility] Comment on above: Performed By: #### C DP, CP #### [facility] [address] [place] [address] Materials Engineering Technician: Todd Foster MD CO2 [Moles/Vol] 26 mmol/L Normal 20-31 [facility] Comment on above: Performed By: #### C DP, CP #### [facility] [address] [place] [address] Materials Engineering Technician: Todd Foster MD Creatinine [Mass/Vol] 0.69 mg/dL Low 0.70-1.20 [facility] Comment on above: Performed By: #### C DP, CP #### [facility] [address] [place] [address] Materials Engineering Technician: Todd Foster MD GFR, Amer >60 Normal >60 [facility] Comment on above: Performed By: #### C DP, CP #### [facility] [address] [place], [place] [id number] Materials Engineering Technician: Todd Foster MD GFR,non Amer >60 Normal >60 [facility] Comment on above: Performed By: #### C DP, CP #### [facility] [address] [place] [address] Materials Engineering Technician: Todd Foster MD Glucose [Mass/Vol] 113 mg/dL High 70-99 [facility] Comment on above: Performed By: #### C DP, CP #### [facility] [address] [place], [place] [id number] Materials Engineering Technician: Todd Foster MD Potassium [Moles/Vol] 4.3 mmol/L Normal 3.7-5.3 [facility] Comment on above: Performed By: #### C DP, CP #### [facility] [address] [place], [place] [id number] Materials Engineering Technician: Todd Foster MD Protein [Mass/Vol] 9.3 g/dL High 6.4-8.3 [facility] Comment on above: Performed By: #### C DP, CP #### [facility] [address] [place] [address] Materials Engineering Technician: Todd Foster MD Sodium [Moles/Vol] 134 mmol/L Low 135-144 [facility] Comment on above: Performed By: #### C DP, CP #### [facility] [address] [place] [address] Materials Engineering Technician: Todd Foster MD Urea nitrogen [Mass/Vol] 15 mg/dL Normal 6-20 [facility] Comment on above: Performed By: #### C DP, CP #### [facility] [address] [place] [address] Materials Engineering Technician: Todd Foster MD Albumin/Globulin [Mass ratio] NOT REPORTED Normal 1.0-2.5 [facility] Comment on above: Performed By: #### C DP, CP #### [facility] [address] [place] [address] Materials Engineering Technician: Todd Foster MD Staging: NOT REPORTED Normal [facility] Comment on above: Performed By: #### C DP, CP #### [facility] [address] [place] [address] Materials Engineering Technician: Todd Foster MD [facility] Metabolic [facility] 11-06-2019 Albumin [Mass/Vol] 4.3 g/dL 3.5 - 5.2 g/dL [place] Albumin/Globulin [Mass ratio] NOT REPORTED [place] ALP [Catalytic activity/Vol] 78 U/L 40 - 129 U/L [place] ALT [Catalytic activity/Vol] 32 U/L 5 - 41 U/L [place] Anion gap [Moles/Vol] 12 mmol/L 9 - 17 mmol/L [place] AST [Catalytic activity/Vol] 40 U/L High <40 [place] Bilirubin Ql (U) 0.78 mg/dL 0.3 - 1.2 mg/dL [place] Bun/Cre Ratio 22 High [place] Calcium [Mass/Vol] 9.5 mg/dL 8.6 - 10. 4 mg/dL [place] Chloride [Moles/Vol] 96 mmol/L Low 98 - 10 7 mmol/L [place] CO2 [Moles/Vol] 26 mmol/L 20 - 31 mmol/L [place] Creatinine [Mass/Vol] 0.69 mg/dL Low 0.7 - 1.2 mg/dL [place] GFR >60 >60 mL/min [place] GFR Non- >60 >60 mL/min [place] GFR/1.73 sq M predicted among non-blacks MDRD (S/P/Bld) [Vol rate/Area] NOT REPORTED [place] GFR/1.73 sq M predicted among non-blacks MDRD (S/P/Bld) [Vol rate/Area] [place] Comment on above: Average GFR for 50-5 9 years old: 93 mL/min/1.73sq m Chronic Kidney Disease: <60 mL/min/1.73sq m Kidney failure: <15 mL/min/1.73sq m eGFR calculated using average adult body mass. Additional eGFR calculator available at: http://www.rocket [employer]/multiple_crcl_2012.htm Glucose [Mass/Vol] 113 mg/dL High 70 - 99 mg/dL [place] Interpretation and review of laboratory results Abnormal [place] Potassium [Moles/Vol] 4.3 mmol/L 3.7 - 5.3 mmol/L [place] Protein [Mass/Vol] 9.3 g/dL High 6.4 - 8.3 g/dL [place] Sodium [Moles/Vol] 134 mmol/L Low 135 - 144 mmol/L [place] Urea nitrogen [Mass/Vol] 15 mg/dL 6 - 20 mg/dL [place] EKG 12 Leadon 11-06-2019 Atrial Rate 95 BPM [place] P [place] 53 degrees [place] P-R Interval 148 ms [place] Q-T Interval 344 ms [place] QRS Duration 80 ms [place] QTc Calculation (Bazett) 432 ms [place] R [place] 49 degrees [place] T [place] 45 degrees [place] Ventricular Rate 95 BPM [place] Normal sinus rhythm Normal ECG When compared with ECG of 04-MAR-2019 11:51, No significant change was found [place] Jhony, Mhpn Incoming E kg Results From [facility] - 11/06/2019 7:40 AM EDT Normal sinus rhythm Normal ECG When compared with ECG of 04-MAR-2019 11:51, No significant change was found [place] Flu A/B Ag Detectionon 11-05 Flu A/B Ag Detection Specimen Descriptio n .NASOPHARYNGEAL SWAB Special Requests NOT REPORTED Direct Exam POSITIVE for Influenza A Antigen NEGATIVE for Influenza B Antigen Report Status FINAL 11/06/2019 Normal [facility] Comment on above: Performed By: #### C JERAMIE SANTANA #### [facility] [address] [place] [address] Materials Engineering Technician: Todd Foster MD Lactate, Sepsison 11-06-2019 Lactic Acid, Sepsis 1.2 mmol/L Normal 0.5-1.9 [facility] Comment on above: Performed By: #### C DP, CP #### [facility] [address] [place] [address] Materials Engineering Technician: Todd Foster MD Lactic Acid,Sep Wbld NOT REPORTED Normal 0.5-1.9 [facility] Comment on above: Performed By: #### C DP, CP #### [facility] [address] [place] [phone] Materials Engineering Technician: Todd Foster MD Lactic Acid, Sepsis 1.2 mmol/L 0.5 - 1. 9 mmol/L [place] Lactic Acid, Sepsis, Whole Blood NOT REPORTED 0.5 - 1.9 mmol/L [place] Lactic Acidon 11-06-2019 Lactate [Moles/Vol] 1.2 mmol/L Normal 0.5-2.2 [facility] Comment on above: Performed By: #### C DP, CP #### [facility] [address] [place] [phone] Materials Engineering Technician: Todd Foster MD Lactate [Moles/Vol] 1.2 mmol/L 0.5 - 2. 2 mmol/L [place] Otheron 11-06-2019 Immature granulocytes (Bld) [#/Vol] NOT REPORTED [place] POC PANEL (G3)-ARTon 020 aPTT Coag (Bld) [Time] NOT REPORTED [place] FIO2 NOT REPORTED [place] Interpretation and review of laboratory results Abnormal [place] Negative Base Excess, Art NOT REPORTED [place] O2 Device/Flow/% NOT REPORTED [place] Oxygen saturation in Blood 96 % 95 - 98 % [place] POC HCO3 26.6 mmol/L High 22 - 26 mmol/L [place] POC pCO2 39 [place] POC pCO2 Temp NOT REPORTED mm Hg [place] POC pH 7.45 [place] POC pH Temp NOT REPORTED [place] POC PO2 80 [place] POC pO2 Temp NOT REPORTED mm Hg [place] Positive Base Excess, Art 3 High [place] TCO2 (calc), Art 28 mmol/L 24 - 30 mmol/L [place] Rapid influenza A/B antigens on 11-06-2019 Direct Exam Positive Abnormal [place] Direct Exam Negative [place] Interpretation and review of laboratory results Abnormal [place] Special Requests NOT REPORTED [place] Specimen Description .NASOPHARYNGEAL SWAB [place] XR CHEST PORTABLEon 11-06-19 XR CHEST PORTABLE EXAM: XR CHEST BERTRAM BLE HISTORY: Fever, cough, COPD. COMPARISON: Chest x-ray from April 03, 2019. TECHNIQUE: Single AP radiograph of the chest was performed. FINDINGS: There is suggestion of hyperaeration/chronic changes as well as mild bibasilar streaky type opacity. No pneumothorax or sizable pleural effusion. The cardiomediastinal silhouette is unremarkable. Degenerative changes of the shoulders and spine are noted. 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 Surgical clips overlie the left neck. IMPRESSION: Hyperaeration/chronic changes as well as mild bibasilar streaky opacity, nonspecific. The findings may represent atelectasis or pneumonitis. Further evaluation with follow-up CT chest exam is recommended. Interpreted by: Dean Means MD Signed by: Dean Means MD 11/06/19 Final result Normal [facility] Hyperaeration/chroni c changes as well as mild bibasilar streaky opacity, nonspecific. The findings may represent atelectasis or pneumonitis. Further evaluation with follow-up CT chest exam is recommended. [place] Jhony, Mhpn Incoming R adiant Results From [facility] - 11/06/2019 2:17 AM EDT EXAM: XR CHEST PORTABLE HISTORY: Fever, cough, COPD. COMPARISON: Chest x-ray from April 03, 2019. TECHNIQUE: Single AP radiograph of the chest was performed. FINDINGS: There is suggestion of hyperaeration/chronic changes as well as mild bibasilar streaky type opacity. No pneumothorax or sizable pleural effusion. The cardiomediastinal silhouette is unremarkable. Degenerative changes of the shoulders and spine are noted. 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 Surgical clips overlie the left neck. IMPRESSION: Hyperaeration/chronic changes as well as mild bibasilar streaky opacity, nonspecific. The findings may represent atelectasis or pneumonitis. Further evaluation with follow-up CT chest exam is recommended. [place] EXAM: XR CHEST BERTRAM BLE HISTORY: Fever, cough, COPD. COMPARISON: Chest x-ray from April 03, 2019. TECHNIQUE: Single AP radiograph of the chest was performed. FINDINGS: There is suggestion of hyperaeration/chronic changes as well as mild bibasilar streaky type opacity. No pneumothorax or sizable pleural effusion. The cardiomediastinal silhouette is unremarkable. Degenerative changes of the shoulders and spine are noted. 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 Surgical clips overlie the left neck. [place] CBC WITH AUTO DIFFERENTIALon 04-03-2019 Basophils (Bld) [#/Vol] 0.01 10*3/uL [facility] Basophils/100 WBC (Bld) 0.3 % [facility] Eosinophils (Bld) [#/Vol] 0.06 10*3/uL [facility] Eosinophils/100 WBC (Bld) 1.9 % [facility] Erythrocyte distribution width (RBC) [Entitic vol] 16.0 % High 11.6 - 14.8 % [facility] Hematocrit (Bld) [Volume fraction] 38.2 % Low 41 - 53 % [facility] Hemoglobin (Bld) [Mass/Vol] 11.9 g/dL Low 13.5 - 17.5 g/dL [facility] Immature granulocytes (Bld) [#/Vol] 0.01 10*3/uL [facility] Immature granulocytes/100 WBC (Bld) 0.30 % [facility] Comment on above: The IG parameter is the percentage of metamyelocytes, myelocytes, and promyelocytes. Interpretation and review of laboratory results Abnormal [facility] Lymphocytes (Bld) [#/Vol] 1.06 10*3/uL [facility] Lymphocytes/100 WBC (Bld) 33.2 % [facility] MCH (RBC) [Entitic mass] 22.2 pg Low 26 - 34 pg [facility] MCHC (RBC) [Mass/Vol] 31.2 g/dL 31 - 37 g/dL [facility] MCV (RBC) [Entitic vol] 71.1 fL Low 80 - 100 fL [facility] Monocytes (Bld) [#/Vol] 0.29 10*3/uL Low [facility] Monocytes/100 WBC (Bld) 9.1 % [facility] Neutrophils (Bld) [#/Vol] 1.76 10*3/uL [facility] Neutrophils/100 WBC (Bld) 55.2 % [facility] Comment on above: Peripheral smear rev iewed manually Nucleated RBC (Bld) [#/Vol] 0.00 10*3/uL [facility] Nucleated RBC/100 WBC (Bld) [Ratio] 0.0 % [facility] Platelet mean volume (Bld) [Entitic vol] 11.2 fL 9 - 15.5 fL [facility] Platelets (Bld) [#/Vol] 128 10*3/uL Low [facility] RBC (Bld) [#/Vol] 5.37 10*6/uL [facility] WBC (Bld) [#/Vol] 3.19 10*3/uL Low [facility] Chem 7on 04-03-2019 Anion gap [Moles/Vol] 10 mmol/L 10 - 20 mmol/L [facility] Chloride [Moles/Vol] 104 mmol/L 98 - 10 8 mmol/L [facility] Creatinine [Mass/Vol] 0.82 mg/dL 0.5 - 1.3 mg/dL [facility] GFR/1.73 sq M predicted among non-blacks MDRD (S/P/Bld) [Vol rate/Area] The eGFR should be used for monitoring renal function only and not for medication dosing. [facility] GFR/1.73 sq M.predicted CKD-EPI (S/P/Bld) [Vol rate/Area] 102 >=60 mL/min/1.73 m2 [facility] Glucose [Mass/Vol] 100 mg/dL High 65 - 99 mg/dL [facility] HCO3 [Moles/Vol] 28 mmol/L 21 - 32 mmol/L [facility] Interpretation and review of laboratory results Abnormal [facility] Potassium [Moles/Vol] 4.1 mmol/L 3.5 - 5.1 mmol/L [facility] Sodium [Moles/Vol] 138 mmol/L 135 - 145 mmol/L [facility] Urea nitrogen [Mass/Vol] 15 mg/dL 8 - 25 mg/dL [facility] Urea nitrogen/Creatinine [Mass ratio] 18.3 mg/mg [facility] ECG 12-LEADon 04-03-2019 Atrial Rate 56 BPM [facility] P [place] 3 degrees [facility] P-R Interval 154 ms [facility] Q-T Interval 446 ms [facility] QRS Duration 86 ms [facility] QTC Calculation (Bezet) 430 ms [facility] R [place] 55 degrees [facility] T [place] 52 degrees [facility] Ventricular Rate 56 BPM [facility] Sinus bradycardia Ot herwise normal ECG ECG Cart Interpretation see physician note for interpretation. Confirmed by Tamara Obando ([id number]) on 04/03/2019 10:38:52 AM [facility] Kinsey Ignacio MD 04/03/2019 10:14 AM ECG 12 Lead Date/Time: 04/03/2019 10:12 AM Performed by: Kinsey Ignacio MD Authorized by: Kinsey Ignacio MD Comparison: compared with previous ECG Rhythm: sinus rhythm BPM: 56 Conduction: conduction normal ST Segments: ST segments normal T Waves: T waves normal normal SC interval normal QRS interval normal QT interval Clinical impression: normal ECG [facility] MORPHOLOGYon 04-03-2019 Anisocytosis Ql (Bld) 2+ [facility] Roe cells LM Ql (Bld) 1+ [facility] Hypochromia Ql (Bld) 2+ [facility] Microcytes Ql (Bld) 2+ [facility] ealth NT Pro BNPon 04-03-2019 Interpretation and review of laboratory results Normal [facility] Natriuretic peptide.B prohormone N-Terminal [Mass/Vol] 83 pg/mL 0 - 300 pg/mL [facility] Comment on above: Please note reference range change as of 08/09/18. Pride Study Cut-offs Rule In: < /= 50 Years >450 pg/mL 51 Years - 75 Years >900 pg/mL 76 Years - 99 Years >1800 pg/mL Rule Out: All patients <300 pg/mL [facility] TROPONINon 04-03-2019 Troponin I.cardiac [Mass/Vol] Normal [facility] [facility] Troponin I.cardiac [Mass/Vol] ng/mL <=45 ng/L [facility] XR Chest 1 Viewon 04-03-2019 EXAMINATION: XR CHES T PA/AP, 04/03/2019 HISTORY: SHORTNESS OF BREATH COMPARISON: Chest, 03/04/2019. FINDINGS: Cardiac size, mediastinal contour and pulmonary vascularity are within normal limits. The lungs are well expanded and clear. [facility] No acute cardiopulmo nary disease. Workstation ID: [id number] [facility] Interface, Rad In Fu ji Speechq - 04/03/2019 9:00 AM EDT EXAMINATION: XR CHEST PA/AP, 04/03/2019 HISTORY: SHORTNESS OF BREATH COMPARISON: Chest, 03/04/2019. FINDINGS: Cardiac size, mediastinal contour and pulmonary vascularity are within normal limits. The lungs are well expanded and clear. IMPRESSION: No acute cardiopulmonary disease. Workstation ID: [id number] [facility] Basic Metab w/rfx MGon 03-04 (cont.) Normal [facility] Comment on above: Result Comment: Aver age GFR for 50-59 years old: 93 mL/min/1.73sq m Chronic Kidney Disease: <60 mL/min/1.73sq m Kidney failure: <15 mL/min/1.73sq m eGFR calculated using average adult body mass. Additional eGFR calculator available at: http://www.[employer]/multiple_crcl_2012.htm Performed By: #### B MPX, BNP, TROPI, TSHX, CDP #### [facility] [address] [place] [address] Materials Engineering Technician: Todd Foster MD Anion gap [Moles/Vol] 11 mmol/L Normal -17 [facility] Comment on above: Performed By: #### B MPX, BNP, TROPI, TSHX, CDP #### [facility] [address] [place] [address] Materials Engineering Technician: Todd Foster MD BUN/CRE Ratio 20 Normal - [facility] Comment on above: Performed By: #### B MPX, BNP, TROPI, TSHX, CDP #### [facility] [address] [place] [address] Materials Engineering Technician: Todd Foster MD Calcium [Mass/Vol] 9.4 mg/dL Normal 8.6-10.4 [facility] Comment on above: Performed By: #### B MPX, BNP, TROPI, TSHX, CDP #### [facility] [address] [place] [address] Materials Engineering Technician: Todd Foster MD Chloride [Moles/Vol] 100 mmol/L Normal 98-107 [facility] Comment on above: Performed By: #### B MPX, BNP, TROPI, TSHX, CDP #### [facility] [address] [place] [address] Materials Engineering Technician: Todd Foster MD CO2 [Moles/Vol] 27 mmol/L Normal 20-31 [facility] Comment on above: Performed By: #### B MPX, BNP, TROPI, TSHX, CDP #### [facility] [address] [place] [address] Materials Engineering Technician: Todd Foster MD Creatinine [Mass/Vol] 0.59 mg/dL Low 0.70-1.20 [facility] Comment on above: Performed By: #### B MPX, BNP, TROPI, TSHX, CDP #### [facility] [address] [place] [address] Materials Engineering Technician: Todd Foster MD GFR, Amer >60 Normal >60 [facility] Comment on above: Performed By: #### B MPX, BNP, TROPI, TSHX, CDP #### [facility] [address] [place] [phone] Materials Engineering Technician: Todd Foster MD GFR,non Amer >60 Normal >60 [facility] Comment on above: Performed By: #### B MPX, BNP, TROPI, TSHX, CDP #### [facility] [address] [place] [address] Materials Engineering Technician: Todd Foster MD Glucose [Mass/Vol] 113 mg/dL High 70-99 [facility] Comment on above: Performed By: #### B MPX, BNP, TROPI, TSHX, CDP #### [facility] [address] [place], [place] [id number] Materials Engineering Technician: Todd Foster MD Potassium [Moles/Vol] 4.4 mmol/L Normal 3.7-5.3 [facility] Comment on above: Performed By: #### B MPX, BNP, TROPI, TSHX, CDP #### [facility] [address] [place] [address] Materials Engineering Technician: Todd Foster MD Sodium [Moles/Vol] 138 mmol/L Normal 135-144 [facility] Comment on above: Performed By: #### B MPX, BNP, TROPI, TSHX, CDP #### [facility] [address] [place], [place] [id number] Materials Engineering Technician: Todd Foster MD Urea nitrogen [Mass/Vol] 12 mg/dL Normal 6-20 [facility] Comment on above: Performed By: #### B MPX, BNP, TROPI, TSHX, CDP #### [facility] [address] [place] [address] Materials Engineering Technician: Todd Foster MD Staging: NOT REPORTED Normal [facility] Comment on above: Performed By: #### B MPX, BNP, TROPI, TSHX, CDP #### [facility] [address] [place] [address] Materials Engineering Technician: Todd Foster MD Brain Natri. Peptideon 03-04 Natriuretic peptide B (Bld) [Mass/Vol] Pro-BNP Reference Range: Normal [facility] Comment on above: Result Comment: Rule Out: <300 Combs Zone: Age <50 300-450 Age 50-75 300-900 Age >75 300-1800 Usually represents mild to moderate HF but other cardiopulmonary causes cannot be ruled out. Rule In: Age <50 >450 Age 50-75 >900 Age >75 >1800 Performed By: #### B MPX, BNP, TROPI, TSHX, CDP #### [facility] [address] [place] [address] Materials Engineering Technician: Todd Foster MD Natriuretic peptide B (Bld) [Mass/Vol] 568 pg/mL High <300 [facility] Comment on above: Result Comment: Pro- BNP results cannot be compared to BNP results. Performed By: #### B MPX, BNP, TROPI, TSHX, CDP #### [facility] [address] [place] [phone] Materials Engineering Technician: Todd Foster MD CBC with Diffon 03-04-2019 Abs. Basophil Normal 0.0-0.2 [facility] Comment on above: Performed By: #### B MPX, BNP, TROPI, TSHX, CDP #### [facility] [address] [place] [phone] Materials Engineering Technician: Todd Foster MD Abs.Neutrophil (Seg) 1.35 k/uL Low 2.1-6.5 [facility] Comment on above: Performed By: #### B MPX, BNP, TROPI, TSHX, CDP #### [facility] [address] [place] [phone] Materials Engineering Technician: Todd Foster MD Basophils/100 WBC (Bld) Normal 0-2 [facility] Comment on above: Performed By: #### B MPX, BNP, TROPI, TSHX, CDP #### [facility] [address] [place] [phone] Materials Engineering Technician: Todd Foster MD Eosinophils (Bld) [#/Vol] 0.05 10*3/uL Normal 0.0-0.4 [facility] Comment on above: Performed By: #### B MPX, BNP, TROPI, TSHX, CDP #### [facility] [address] [place] [address] Materials Engineering Technician: Todd Foster MD Eosinophils/100 WBC (Bld) 2 % Normal 0-5 [facility] Comment on above: Performed By: #### B MPX, BNP, TROPI, TSHX, CDP #### [facility] [address] [place] [address] Materials Engineering Technician: Todd Foster MD Lymphocytes (Bld) [#/Vol] 1.08 10*3/uL Normal 1.0-4.8 [facility] Comment on above: Performed By: #### B MPX, BNP, TROPI, TSHX, CDP #### [facility] [address] [place] [address] Materials Engineering Technician: Todd Foster MD Lymphocytes/100 WBC (Bld) 40 % Normal 13-44 [facility] Comment on above: Performed By: #### B MPX, BNP, TROPI, TSHX, CDP #### [facility] [address] [place] [address] Materials Engineering Technician: Todd Foster MD Monocytes (Bld) [#/Vol] 0.22 10*3/uL Normal 0.0-1.0 [facility] Comment on above: Performed By: #### B MPX, BNP, TROPI, TSHX, CDP #### [facility] [address] [place] [address] Materials Engineering Technician: Todd Foster MD Monocytes/100 WBC (Bld) 8 % Normal 5-9 [facility] Comment on above: Performed By: #### B MPX, BNP, TROPI, TSHX, CDP #### [facility] [address] [place] [address] Materials Engineering Technician: Todd Foster MD Morphology Julián (Bld) [Interp] Manual Differential Performed Normal [facility] Comment on above: Performed By: #### B MPX, BNP, TROPI, TSHX, CDP #### [facility] [address] [place] [address] Materials Engineering Technician: Todd Foster MD Neutrophil (Seg) 50 % Normal 39-75 [facility] Comment on above: Performed By: #### B MPX, BNP, TROPI, TSHX, CDP #### [facility] [address] [place] [address] Materials Engineering Technician: Todd Foster MD Total Cells Counted 50 Normal [facility] Comment on above: Performed By: #### B MPX, BNP, TROPI, TSHX, CDP #### [facility] [address] [place] [address] Materials Engineering Technician: Todd Foster MD Erythrocyte distribution width (RBC) [Ratio] 16.3 % High 12.1-15.2 [facility] Comment on above: Performed By: #### B MPX, BNP, TROPI, TSHX, CDP #### [facility] [address] [place] [address] Materials Engineering Technician: Todd Foster MD Hematocrit (Bld) [Volume fraction] 34.7 % Low 41-53 [facility] Comment on above: Performed By: #### B MPX, BNP, TROPI, TSHX, CDP #### [facility] [address] [place] [address] Materials Engineering Technician: Todd Foster MD Hemoglobin (Bld) [Mass/Vol] 11.1 g/dL Low 13.5-17.5 [facility] Comment on above: Performed By: #### B MPX, BNP, TROPI, TSHX, CDP #### [facility] [address] [place] [address] Materials Engineering Technician: Todd Foster MD MCH (RBC) [Entitic mass] 23.3 pg Low 26-34 [facility] Comment on above: Performed By: #### B MPX, BNP, TROPI, TSHX, CDP #### [facility] [address] [place] [address] Materials Engineering Technician: Todd Foster MD MCHC (RBC) [Mass/Vol] 32.1 g/dL Normal 31-37 [facility] Comment on above: Performed By: #### B MPX, BNP, TROPI, TSHX, CDP #### [facility] [address] [place] [address] Materials Engineering Technician: Todd Foster MD MCV (RBC) [Entitic vol] 72.5 fL Low 80-100 [facility] Comment on above: Performed By: #### B MPX, BNP, TROPI, TSHX, CDP #### [facility] [address] [place] [address] Materials Engineering Technician: Todd Foster MD Platelets (Bld) [#/Vol] 127 10*3/uL Low 140-450 [facility] Comment on above: Performed By: #### B MPX, BNP, TROPI, TSHX, CDP #### [facility] [address] [place] [address] Materials Engineering Technician: Todd Foster MD RBC (Bld) [#/Vol] 4.79 10*6/uL Normal 4.5-5.9 [facility] Comment on above: Performed By: #### B MPX, BNP, TROPI, TSHX, CDP #### [facility] [address] [place] [address] Materials Engineering Technician: Todd Foster MD WBC (Bld) [#/Vol] 2.7 10*3/uL Critically low 3.5-11.0 [facility] Comment on above: Performed By: #### B MPX, BNP, TROPI, TSHX, CDP #### [facility] [address] [place] [address] Materials Engineering Technician: Todd Foster MD Abs.Imm.Granulocyte NOT REPORTED Normal 0.00-0.30 [facility] Comment on above: Performed By: #### B MPX, BNP, TROPI, TSHX, CDP #### [facility] [address] [place] [address] Materials Engineering Technician: Todd Foster MD Auto Diff Performed NOT REPORTED Normal [facility] Comment on above: Performed By: #### B MPX, BNP, TROPI, TSHX, CDP #### [facility] [address] [place] [address] Materials Engineering Technician: Todd Foster MD Immature granulocytes (Bld) [#/Vol] NOT REPORTED Normal 0 [facility] Comment on above: Performed By: #### B MPX, BNP, TROPI, TSHX, CDP #### [facility] [address] [place] [address] Materials Engineering Technician: Todd Foster MD NRBC Automated NOT REPORTED Normal [facility] Comment on above: Performed By: #### B MPX, BNP, TROPI, TSHX, CDP #### [facility] [address] [place], [place] [id number] Materials Engineering Technician: Todd Foster MD Platelet mean volume (Bld) [Entitic vol] NOT REPORTED Normal 6.0-12.0 [facility] Comment on above: Performed By: #### B MPX, BNP, TROPI, TSHX, CDP #### [facility] [address] [place] [address] Materials Engineering Technician: Todd Foster MD Platelets (Bld) [#/Vol] NOT REPORTED Normal [facility] Comment on above: Performed By: #### B MPX, BNP, TROPI, TSHX, CDP #### [facility] [address] [place] [address] Materials Engineering Technician: Todd Foster MD RBC morphology finding Nom (Bld) NOT REPORTED Normal [facility] Comment on above: Performed By: #### B MPX, BNP, TROPI, TSHX, CDP #### [facility] [address] [place] [address] Materials Engineering Technician: Todd Foster MD WBC Morphology NOT REPORTED Normal [facility] Comment on above: Performed By: #### B MPX, BNP, TROPI, TSHX, CDP #### [facility] [address] [place] [address] Materials Engineering Technician: Todd Foster MD TSH w/reflex to FT4on 2018 TSH Qn 4.13 m[IU]/L Normal 0.30-5.00 [facility] Comment on above: Performed By: #### B MPX, BNP, TROPI, TSHX, CDP #### [facility] [address] [place] [address] Materials Engineering Technician: Todd Foster MD Troponinon 03-04-2019 Troponin I.cardiac [Mass/Vol] ng/mL Normal <0.03 [facility] Comment on above: Result Comment: Trop onin T results cannot be compared to Troponin-I results. Performed By: #### B MPX, BNP, TROPI, TSHX, CDP #### [facility] [address] [place] [phone] Materials Engineering Technician: Todd Foster MD Troponin I.cardiac [Mass/Vol] Normal [facility] Comment on above: Result Comment: Refe rence Range: <0.03 Within reference range. 0.03-0.09 Possible myocardial damage. Repeat at appropriate intervals to rule out chronic elevation. >= 0.10 Indicative of myocardial damage. Patients with high levels of Biotin oral intake (i.e >5mg/day) may have falsely decreased Troponin T levels. Samples collected within 8 hours of biotin intake may require additional information for diagnosis. Performed By: #### B MPX, BNP, TROPI, TSHX, CDP #### [facility] [address] [place] [address] Materials Engineering Technician: Todd Foster MD Troponin I.cardiac [Mass/Vol] NOT REPORTED Normal 0-22 [facility] Comment on above: Performed By: #### B MPX, BNP, TROPI, TSHX, CDP #### [facility] [address] [place] [address] Materials Engineering Technician: Todd Foster MD XR CHEST PORTABLEon 03-04-20 XR CHEST PORTABLE CHEST X-RAY, 1 VIEW HISTORY: Shortness of breath. COMPARISON: 02/03/2019. FINDINGS: The heart, robert, and mediastinum are unremarkable. The lungs are grossly clear. There are no pleural effusions. There is no pneumothorax. IMPRESSION: No evidence of acute cardiopulmonary disease. Interpreted by: Thomas Christensen MD Signed by: Thmoas Christensen MD 03/04/19 Final result Normal [facility] CBC with Diffon 02-03-2019 Abs. Basophil 0.00 k/uL Normal 0.0-0.2 [facility] Comment on above: Performed By: #### C DP, CP #### [facility] [address] [place], [place] [phone] Materials Engineering Technician: Todd Foster MD Abs.Neutrophil (Seg) 1.60 k/uL Low 2.1-6.5 [facility] Comment on above: Performed By: #### C DP, CP #### [facility] [address] [place] [address] Materials Engineering Technician: Todd Foster MD Basophils/100 WBC (Bld) 1 % Normal 0-2 [facility] Comment on above: Performed By: #### C DP, CP #### [facility] [address] [place] [address] Materials Engineering Technician: Todd Foster MD Eosinophils (Bld) [#/Vol] 0.00 10*3/uL Normal 0.0-0.4 [facility] Comment on above: Performed By: #### C DP, CP #### [facility] [address] [place] [address] Materials Engineering Technician: Todd Foster MD Eosinophils/100 WBC (Bld) 2 % Normal 0-5 [facility] Comment on above: Performed By: #### C DP, CP #### [facility] [address] [place] [address] Materials Engineering Technician: Todd Foster MD Erythrocyte distribution width (RBC) [Ratio] 16.6 % High 12.1-15.2 [facility] Comment on above: Performed By: #### C DP, CP #### [facility] [address] [place], [place] [phone] Materials Engineering Technician: Todd Foster MD Hematocrit (Bld) [Volume fraction] 33.5 % Low 41-53 [facility] Comment on above: Performed By: #### C DP, CP #### [facility] [address] [place] [address] Materials Engineering Technician: Todd Foster MD Hemoglobin (Bld) [Mass/Vol] 10.6 g/dL Low 13.5-17.5 [facility] Comment on above: Performed By: #### C DP, CP #### [facility] [address] [place] [phone] Materials Engineering Technician: Todd Foster MD Lymphocytes (Bld) [#/Vol] 0.70 10*3/uL Low 1.0-4.8 [facility] Comment on above: Performed By: #### C DP, CP #### [facility] [address] [place] [address] Materials Engineering Technician: Todd Foster MD Lymphocytes/100 WBC (Bld) 27 % Normal 13-44 [facility] Comment on above: Performed By: #### C DP, CP #### [facility] [address] [place] [address] Materials Engineering Technician: Todd Foster MD MCH (RBC) [Entitic mass] 23.1 pg Low 26-34 [facility] Comment on above: Performed By: #### C DP, CP #### [facility] [address] [place] [address] Materials Engineering Technician: Todd Foster MD MCHC (RBC) [Mass/Vol] 31.7 g/dL Normal 31-37 [facility] Comment on above: Performed By: #### C DP, CP #### [facility] [address] [place] [address] [phone] Materials Engineering Technician: Todd Foster MD MCV (RBC) [Entitic vol] 73.0 fL Low 80-100 [facility] Comment on above: Performed By: #### C DP, CP #### [facility] [address] [place] [phone] Materials Engineering Technician: Todd Foster MD Monocytes (Bld) [#/Vol] 0.30 10*3/uL Normal 0.0-1.0 [facility] Comment on above: Performed By: #### C DP, CP #### [facility] [address] [place] [phone] Materials Engineering Technician: Todd Foster MD Monocytes/100 WBC (Bld) 10 % High 5-9 [facility] Comment on above: Performed By: #### C DP, CP #### [facility] [address] [place] [address] ([phone] Materials Engineering Technician: Todd Foster MD Neutrophil (Seg) 60 % Normal 39-75 [facility] Comment on above: Performed By: #### C DP, CP #### [facility] [address] [place] [address] ([phone] Materials Engineering Technician: Todd Foster MD Platelets (Bld) [#/Vol] 106 10*3/uL Low 140-450 [facility] Comment on above: Performed By: #### C DP, CP #### [facility] [address] [place] [address] ([phone] Materials Engineering Technician: Todd Foster MD RBC (Bld) [#/Vol] 4.59 10*6/uL Normal 4.5-5.9 [facility] Comment on above: Performed By: #### C DP, CP #### [facility] [address] [place] [phone] Materials Engineering Technician: Todd Foster MD WBC (Bld) [#/Vol] 2.6 10*3/uL Critically low 3.5-11.0 [facility] Comment on above: Performed By: #### C DP, CP #### [facility] [address] [place] [address] Materials Engineering Technician: Todd Foster MD Abs.Imm.Granulocyte NOT REPORTED Normal 0.00-0.30 [facility] Comment on above: Performed By: #### C DP, CP #### [facility] [address] [place] [address] Materials Engineering Technician: Todd Foster MD Auto Diff Performed NOT REPORTED Normal [facility] Comment on above: Performed By: #### C DP, CP #### [facility] [address] [place] [address] Materials Engineering Technician: Todd Foster MD Immature granulocytes (Bld) [#/Vol] NOT REPORTED Normal 0 [facility] Comment on above: Performed By: #### C DP, CP #### [facility] [address] [place] [phone] Materials Engineering Technician: Todd Foster MD NRBC Automated NOT REPORTED Normal [facility] Comment on above: Performed By: #### C DP, CP #### [facility] [address] [place] [address] Materials Engineering Technician: Todd Foster MD Platelet mean volume (Bld) [Entitic vol] NOT REPORTED Normal 6.0-12.0 [facility] Comment on above: Performed By: #### C DP, CP #### [facility] [address] [place] [address] Materials Engineering Technician: Todd Foster MD Platelets (Bld) [#/Vol] NOT REPORTED Normal [facility] Comment on above: Performed By: #### C DP, CP #### [facility] [address] [place] [address] Materials Engineering Technician: Todd Foster MD RBC morphology finding Nom (Bld) NOT REPORTED Normal [facility] Comment on above: Performed By: #### C DP, CP #### [facility] [address] [place] [address] Materials Engineering Technician: Todd Foster MD WBC Morphology NOT REPORTED Normal [facility] Comment on above: Performed By: #### C DP, CP #### [facility] [address] [place] [address] Materials Engineering Technician: Todd Foster MD Comp Metabolic Profon 2018 (cont.) Normal [facility] Comment on above: Result Comment: Aver age GFR for 50-59 years old: 93 mL/min/1.73sq m Chronic Kidney Disease: <60 mL/min/1.73sq m Kidney failure: <15 mL/min/1.73sq m eGFR calculated using average adult body mass. Additional eGFR calculator available at: http://www.[employer]/multiple_crcl_2012.htm Performed By: #### C DP, CP #### [facility] [address] [place] [address] Materials Engineering Technician: Todd Foster MD Albumin [Mass/Vol] 4.1 g/dL Normal 3.5-5.2 [facility] Comment on above: Performed By: #### C DP, CP #### [facility] [address] [place] [address] Materials Engineering Technician: Todd Foster MD Alkaline Phos 90 U/L Normal 40-129 [facility] Comment on above: Performed By: #### C DP, CP #### [facility] [address] [place] [address] Materials Engineering Technician: Todd Foster MD ALT [Catalytic activity/Vol] 28 U/L Normal 5-41 [facility] Comment on above: Performed By: #### C DP, CP #### [facility] [address] [place] [id number] Materials Engineering Technician: Todd Foster MD Anion gap [Moles/Vol] 12 mmol/L Normal 9-17 [facility] Comment on above: Performed By: #### C DP, CP #### [facility] [address] [place], [place] [id number] Materials Engineering Technician: Todd Foster MD AST [Catalytic activity/Vol] 30 U/L Normal <40 [facility] Comment on above: Performed By: #### C DP, CP #### [facility] [address] [place], [place] [id number] Materials Engineering Technician: Todd Foster MD Bilirubin Ql (U) 0.85 mg/dL Normal 0.30-1.20 [facility] Comment on above: Performed By: #### C DP, CP #### [facility] [address] [place], [place] [id number] Materials Engineering Technician: Todd Foster MD BUN/CRE Ratio 27 High 9-20 [facility] Comment on above: Performed By: #### C DP, CP #### [facility] [address] [place], [place] [id number] Materials Engineering Technician: Todd Foster MD Calcium [Mass/Vol] 9.2 mg/dL Normal 8.6-10.4 [facility] Comment on above: Performed By: #### C DP, CP #### [facility] [address] [place], [place] [phone] Materials Engineering Technician: Todd Foster MD Chloride [Moles/Vol] 99 mmol/L Normal 98-107 [facility] Comment on above: Performed By: #### C DP, CP #### [facility] [address] [place], [place] [phone] Materials Engineering Technician: Todd Foster MD CO2 [Moles/Vol] 26 mmol/L Normal 20-31 [facility] Comment on above: Performed By: #### C DP, CP #### [facility] [address] [place] [address] Materials Engineering Technician: Todd Foster MD Creatinine [Mass/Vol] 0.49 mg/dL Low 0.70-1.20 [facility] Comment on above: Performed By: #### C DP, CP #### [facility] [address] [place] [address] Materials Engineering Technician: Todd Foster MD GFR, Amer >60 Normal >60 [facility] Comment on above: Performed By: #### C DP, CP #### [facility] [address] [place] [address] Materials Engineering Technician: Todd Foster MD GFR,non Amer >60 Normal >60 [facility] Comment on above: Performed By: #### C DP, CP #### [facility] [address] [place] [address] Materials Engineering Technician: Todd Foster MD Glucose [Mass/Vol] 130 mg/dL High 70-99 [facility] Comment on above: Performed By: #### C DP, CP #### [facility] [address] [place] [address] Materials Engineering Technician: Todd Foster MD Potassium [Moles/Vol] 3.9 mmol/L Normal 3.7-5.3 [facility] Comment on above: Performed By: #### C DP, CP #### [facility] [address] [place] [address] Materials Engineering Technician: Todd Foster MD Protein [Mass/Vol] 7.8 g/dL Normal 6.4-8.3 [facility] Comment on above: Performed By: #### C DP, CP #### [facility] [address] [place] [address] Materials Engineering Technician: Todd Foster MD Sodium [Moles/Vol] 137 mmol/L Normal 135-144 [facility] Comment on above: Performed By: #### C DP, CP #### [facility] [address] [place], [place] [phone] Materials Engineering Technician: Todd Foster MD Urea nitrogen [Mass/Vol] 13 mg/dL Normal 6-20 [facility] Comment on above: Performed By: #### C DP, CP #### [facility] [address] [place] [address] Materials Engineering Technician: Todd Foster MD Albumin/Globulin [Mass ratio] NOT REPORTED Normal 1.0-2.5 [facility] Comment on above: Performed By: #### C DP, CP #### [facility] [address] [place] [address] Materials Engineering Technician: Todd Foster MD Staging: NOT REPORTED Normal [facility] Comment on above: Performed By: #### C DP, CP #### [facility] [address] [place] [address] Materials Engineering Technician: Todd Foster MD XR CHEST (2 VW)on 02-03-2019 XR CHEST (2 VW) TWO-VIEW CHEST COMPARISON: Portable chest from 01/16/2017. REASON FOR STUDY: Shortness of breath x1 week. REPORT: Trachea, mediastinum and heart size are unremarkable. The lungs are clear and show slight chronic changes centrally. No effusion or nodule or pneumothorax or infiltrate is noted. The diaphragm and bony elements are intact. Postsurgical clips noted within the left supraclavicular region. There is an old fracture of the left clavicle without union. IMPRESSION: Nonacute two-view chest with stable chronic changes. Interpreted by: Kanika Terry DO Signed by: Kanika Terry DO 02/03/19 Final result Normal [facility] XR Knee Right 2 Views (Stand no)on 07-31-2018 I have personally re viewed an AP and lateral of the right knee which was obtained at my request in the office today. This film demonstrates a well aligned knee. Patient is relatively osteopenic. There is symmetrical joint space loss in this film represents what appears to be severe osteoarthritis. There are no acute changes. Invalid Interpretation Code FUJI SYNAPSE [facility] Drug Testi ngon 06-03-2018 [facility] Drug Testing See EMR Normal [facility] Comment on above: Result Comment: Scan daryl report from [facility] ([address], [place], [place])can be found in the [employer] EMR ([employer]) system. Performed By: #### M CHEMOILLEN ####Unless otherwise noted, all testing performed by [facility], [place] [phone]: [id number] Director: Jack Mendoza M.D. FOOTon 05-15-2018 FOOT Final ReportAccession No: [id number] Performed: May 15 2018 3:20PMExamination: LEFT FOOTEXAM: Left foot radiographCLINICAL STATEMENT: Left foot pain without known injuryCOMPARISON: Left foot radiograph dated 03/02/2018TECHNIQUE: AP, lateral, and oblique views of the left foot (three views)FINDINGS: No acute fractures or dislocations are identified. There isunchangedlateral subluxation of the second middle phalanx relative to the proximalphalanx. There are unchanged marginal erosions at the fifthmetatarsophalangealjoi nt with overlying soft tissue swelling. There is advancedosteoarthritis atthe first metatarsophalangeal joint. There is moderate osteoarthritis atthefirst interphalangeal joint and at the second proximal interphalangealjoint.No radiopaque foreign bodies.IMPRESSION:1. Unchanged radiographic appearance of the left foot. No acute osseousabnormality.2. Advanced osteoarthritis at the first metatarsophalangeal joint.3. Moderate osteoarthritis at the first interphalangeal joint and at thesecondproximal interphalangeal joint, with unchanged subluxation of the secondPIPjoint.3. Marginal erosions at the fifth metatarsophalangeal joint withoverlying softtissue swelling. This may be related to gout or an erosive arthritis.Interpreting Physician: JONATHAN BELTRAN M.D.Trans: n/a : cc: [facility] KNEES BILAT STANDING 1 VIEW ONLYon 05-15-2018 KNEES BILAT STANDING 1 VIEW ONLY Final ReportAccession No: [id number] Performed: May 15 2018 3:20PMExamination: KNEES BILAT STANDING 1 VIEW ONLYEXAM: KNEES BILAT STANDING 1 VIEW ONLYCLINICAL STATEMENT: Chronic bilateral knee painCOMPARISON: Right knee radiograph dated 03/07/2018TECHNIQUE: Single standing frontal view of the bilateral knees..FINDINGS: No acute fractures or dislocations are identified. Bonyalignment ismaintained. No erosive or aggressive osseous lesions. There is moderatelysevere medial and lateral compartment joint space narrowing in the rightknee.There is also mild femoral and tibial spurring in the medial and lateralcompartments. There is moderate medial and mild lateral compartment jointspacenarrowing in the left knee. Healed fracture deformity of the proximal leftfibula is noted.IMPRESSION:1. Moderately severe osteoarthritis involving the medial and lateralcompartments of the right knee, similar to comparison exam.2. Moderate medial compartment and mild lateral compartment joint spacenarrowing in the left knee.Interpreting Physician: JONATHAN BELTRAN M.D.Trans: n/a : cc: [facility]2018 [facility] See [facility] Normal [facility] Comment on above: Result Comment: Scan daryl report from [facility] ([address] [address] [facility] [place])can be found in the [facility] ([facility]) system. Performed By: #### M LMILLEN ####Unless otherwise noted, all testing performed by [facility] [employer] [place] [address], [place] [phone]: [id number] Director: Jack Mendoza M.D. [facility] 05-06-2018 [facility] See EMR [facility] Comment on above: Result Comment: Scan daryl report from [facility] ([address], [place], [place])can be found in the [employer] EMR ([facility] [employer]) system. Performed By: #### M DIANELYS ####Unless otherwise noted, all testing performed by [place] [address], [place] [phone]: [id number] Director: Jack Mendoza M.D. CT LOWER EXT W/O CONTRASTon 04-20-2018 CT LOWER EXT W/O CONTRAST Final ReportAccession No: [id number] Performed: Apr 20 2018 4:26PMExamination: RIGHT CT LOWER EXT W/O CONTRASTEXAM: CT LOWER EXT W/O CONTRAST RIGHTCLINICAL STATEMENT: Right foot osteoarthritis. Right foot pain.COMPARISON: Right ankle and foot x-rays 03/31/2018.TECHNIQUE: Multiple axial unenhanced CT images of the right foot weresupplemented with 2-D coronal and sagittal reformations..Dose reduction techniques were achieved by using automated exposurecontroland/or adjustment of mA and/or kV according to patient size and/or use ofiterative reconstruction technique.FINDINGS: Tibiotalar alignment appears preserved. There is mild marginalspurat the tibiotalar joint. No talar dome osteochondral lesion is seen. Mildmarginal spur at the posterior subtalar joint.There is prominent subcortical cystic change involving the lateral talarprocess and adjacent nonarticular calcaneus indicating lateral hindfootimpingement. There is partial replacement of the normal fat density in thesinus tarsi. The distal Achilles tendon is intact. Small plantarcalcaneal spuris seen.Tarsometatarsal alignment appears preserved on this nonweight bearingstudy.Interosseous component of the Lisfranc ligament is identified and isintact.Marginal spur and subchondral cystic change is seen across the midfootwithrelative sparing at the fifth TMT joint. There is severe narrowing at thefirstMTP joint with marginal spur and minor subchondral cystic change. No acutefracture is identified.As seen, the flexor, extensor, and peroneal tendons appear intact. No masslesion in the tarsal tunnel is identified.There is localized soft tissue swelling inferomedial to the firsttarsometatarsal joint (series 6, image 81). Sesamoid bones appear intact.IMPRESSION:1. Cystic change involving the lateral talar process and adjacentcalcaneussuggests lateral hindfoot impingement. Associated partial replacement ofthenormal fat density in the sinus tarsi suggesting sinus tarsi syndrome.2. Moderate midfoot osteoarthritis. Moderate to severe osteoarthritis atthefirst MTP joint.3. No acute fracture identified.4. Mild chronic plantar fasciitis.5. Nonspecific focal soft tissue edema at the inferomedial midfootadjacent tothe tarsometatarsal joint. Recommend clinical correlation.Interpreting Physician: SOFÍA MAIN D.O.Trans: sfalk : cc: Normal [facility] Drug Testi ngon 04-08-2018 [facility] Drug Testing See EMR Normal [facility] Comment on above: Result Comment: Scan daryl report from [facility] ([address], [place], [place])can be found in the [employer] EMR ([employer]) system. Performed By: #### M LMILLEN ####Unless otherwise noted, all testing performed by [facility], [place] [phone]: [id number] Director: Jack Mendoza M.D. ANKLE 2 VIEWSon 03-31-2018 ANKLE 2 VIEWS Final ReportAccession No: [id number] Performed: Mar 31 2018 10:50AMExamination: RIGHT ANKLE 2 VIEWSEXAM TYPE: ANKLE 2 VIEWS RIGHTEXAM DATE AND TIME: 03/31/2018 10:50 AM EDTINDICATION: 52-year-old male with chronic pain.COMPARISON: None.TECHNIQUE: 2 views of the right ankle.FINDINGS: No acute fracture. Joints and ankle mortise are anatomicallyaligned.Soft tissues appear unremarkable.IMPRESSION:No acute fracture or traumatic malalignment.Interpreting Physician: KHADAR BETH D.O.Trans: dcarr : cc: Normal [facility] FOOTon 03-31-2018 FOOT Final ReportAccession No: [id number] Performed: Mar 31 2018 10:50AMExamination: RIGHT FOOTEXAM TYPE: FOOT RIGHTEXAM DATE AND TIME: 03/31/2018 10:50 AM EDTINDICATION: 52-year-old male with pain.COMPARISON: None.TECHNIQUE: AP, lateral, and oblique views of the right foot.FINDINGS: No acute fracture. Normal joint alignment. Similar appearance ofmoderate osteoarthritic changes involving the first metatarsophalangealjointand throughout the tarsal-metatarsal joints. Soft tissues appearunremarkable.IMPRESSI ON:1. No acute interval change compared to 03/07/2018.2. No acute osseous abnormality.3. Moderate osteoarthritic changes of the first MTP and throughout thetarsometatarsal joints.Interpreting Physician: KHADAR BETH D.O.Trans: dcarr : cc: Normal [facility] Drug Testi ngon 03-11-2018 [facility] Drug Testing See EMR Normal [facility] Comment on above: Result Comment: Scan daryl report from [facility] ([address], [place], [place])can be found in the [employer] EMR ([facility]) system. Performed By: #### M LMILLEN ####Unless otherwise noted, all testing performed by [address] [phone]: [id number] Director: Jack Mendoza M.D. CCP Antibodieson 03-08-2018 CCP Antibodies 135.8 Unit High 0.0-20.0 [facility] Comment on above: Result Comment: Refe rence Ranges:<20Units Ulvlblhn65-11Kadke Weakly Tsnznddn92-56Ohsme Moderative Positive>=60Units Strong PositiveTest Performed by [facility] [employer] [address] [place] [address] Performed By: #### C RPQT, URIC, SEDR, CCPAB ####Unless otherwise noted, all testing performed by [address] [phone]: [id number] Director: Jack Mendoza M.D. CRP, C-Reactive Proteinon Protein mass conc 5.0 mg/L Normal 0.0-10.0 [facility] Comment on above: Performed By: #### C RPQT, URIC, SEDR, CCPAB ####Unless otherwise noted, all testing performed by [address] [phone]: [id number] Director: Jack Mendoza M.D. Rheumatoid Factoron 03-08-20 18 Rheumatoid Factor Positive Abnormal Negative [facility] Comment on above: Performed By: #### R F ####Unless otherwise noted, all testing performed by [address] [phone]: [id number] Director: Jack Mendoza M.D. Rheumatoid Factor Titer 1:32 Normal [facility] Comment on above: Performed By: #### R F ####Unless otherwise noted, all testing performed by [address] [phone]: [id number] Director: Jack Mendoza M.D. Sed Rateon 03-08-2018 Sed Rate 38 MM/hr. High 0-15 [facility] Comment on above: Performed By: #### C RPQT, URIC, SEDR, CCPAB ####Unless otherwise noted, all testing performed by [address] [phone]: [id number] Director: Jack Mendoza M.D. Uric Acidon 03-08-2018 Urate mass conc 6.2 mg/dL Normal 3.4-8.5 [facility] Comment on above: Performed By: #### C RPQT, URIC, SEDR, CCPAB ####Unless otherwise noted, [facility] testing performed [facility], [place] [phone]: [id number] Director: Jack Mendoza M.D. ANKLEon 03-07-2018 ANKLE Final ReportAccession No: [id number] Performed: Mar 07 2018 3:34PMExamination: RIGHT ANKLEEXAM: Right ankle, 3 views.INDICATION: Right ankle pain.FINDINGS: AP, lateral and oblique views of the right ankle were obtained.Thereis no evidence for acute fracture or dislocation identified. The anklemortiseis intact.Mild subchondral sclerosis of the distal tibia. There is a small amount ofjoint effusion suspected, however, plain radiographic evaluation foreffusionis limited.IMPRESSION:No evidence for acute fracture, dislocation, or erosive arthropathy.Questionable small amount of joint effusion.Interpreting Physician: KATE DUEÑAS M.D.Trans: lwolfe : cc: Normal [facility] FOOTon 03-07-2018 FOOT Final ReportAccession No: [id number] Performed: Mar 07 2018 3:34PMExamination: RIGHT FOOT3 views right foot 03/07/2018.COMPARISON: X-rays of the right ankle from 03/07/2018.HISTORY: Severe pain in the foot and ankle. History of prior right footfracture many years ago per report.FINDINGS: 3 views of the right foot were obtained. There is moderate tomarkedjoint space narrowing involving the first metatarsophalangeal joint withmildspurring. There is also at least moderate degenerative change involvingthetarsometatarsal joints diffusely with joint space narrowing, spurring, andsubarticular cystic change. No acute fracture or dislocation is evident.Thetarsometatarsal alignment appears anatomic. There is mild degenerativechangethroughou t the midfoot. There is mild dorsal soft tissue swelling.IMPRESSION:1. There is moderate degenerative change involving the tarsometatarsaljointsand moderately severe degenerative change of the first metatarsophalangealjoint.2. No acute fracture or stress fracture.Interpreting Physician: KJ VERA M.D.Trans: [id number] : cc: Normal [facility] HIPon 03-07-2018 HIP Final ReportAccession No: [id number] Performed: Mar 07 2018 3:34PMExamination: RIGHT HIPEXAM: Pelvis and right hip, 3 views.INDICATION: Right hip pain.COMPARISON: None.FINDINGS: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 [facility] 07-08-2023 13:31-0500 Heart rate 78 /min Cecilia Janet DPM Work Phone: [facility] 07-08-2023 13:31-0500 Respiratory rate 16 /min Cecilia Janet DPM Work Phone: [facility] 07-08-2023 13:31-0500 SaO2% (BldA) [Mass fraction] 94 % Cecilia Janet DPM Work Phone: [facility] 07-08-2023 13:31-0500 Systolic blood pressure 169 mm[Hg] Cecilia Janet DPM Work Phone: [facility] 07-01-2023 13:35-0500 Body height 182.9 cm Cecilia Shreveport DPM Work Phone: [facility] 07-01-2023 13:35-0500 Body mass index (BMI) [Ratio] 32.96 kg/m2 Cecilia Janet DPM Work Phone: [facility] 07-01-2023 13:35-0500 Body weight 110.22 kg Cecilia Janet DPM Work Phone: [facility] 07-01-2023 13:27-0500 Body temperature 97.5 [degF] Cecilia Shreveport DPM Work Phone: [facility] 07-01-2023 13:27-0500 Diastolic blood pressure 77 mm[Hg] Cecilia Shreveport DPM Work Phone: [facility] 07-01-2023 13:27-0500 Heart rate 73 /min Cecilia Shreveport DPM Work Phone: [facility] 07-01-2023 13:27-0500 Respiratory rate 18 /min Cecilia Janet DPM Work Phone: [facility] 07-01-2023 13:27-0500 SaO2% (BldA) [Mass fraction] 95 % Cecilia Shreveport DPM Work Phone: [facility] 07-01-2023 13:27-0500 Systolic blood pressure 149 mm[Hg] Cecilia Janet DPM Work Phone: [facility] 06-17-2023 09:06-0400 Body temperature 98.49 [degF] Quyen Blairka ENVIRONMENTAL EMERGENCIES PLANNER Work Phone: [facility] 06-17-2023 09:06-0400 Diastolic blood pressure 75 mm[Hg] Quyen Domka ENVIRONMENTAL EMERGENCIES PLANNER Work Phone: [facility] 06-17-2023 09:06-0400 Heart rate 80 /min Quyen Domka ENVIRONMENTAL EMERGENCIES PLANNER Work Phone: [facility] 06-17-2023 09:06-0400 Respiratory rate 16 /min Quyen Domka ENVIRONMENTAL EMERGENCIES PLANNER Work Phone: [facility] 06-17-2023 09:06-0400 SaO2% (BldA) [Mass fraction] 97 % Quyen Blairka ENVIRONMENTAL EMERGENCIES PLANNER Work Phone: [facility] 06-17-2023 09:06-0400 Systolic blood pressure 138 mm[Hg] Quyen Domka ENVIRONMENTAL EMERGENCIES PLANNER Work Phone: [facility] 06-12-2023 00:27-0400 Diastolic blood pressure 69 mm[Hg] Nathan Collins MD Work Phone: [facility] 06-12-2023 00:27-0400 Heart rate 77 /min Nathan Collins MD Work Phone: [facility] 06-12-2023 00:27-0400 SaO2% (BldA) [Mass fraction] 95 % Nathan Collins MD Work Phone: [facility] 06-12-2023 00:27-0400 Systolic blood pressure 110 mm[Hg] Nathan Collins MD Work Phone: [facility] 05-24-2023 23:58-0400 Body mass index (BMI) [Ratio] 31.22 kg/m2 Nathan Collins MD Work Phone: [facility] 05-24-2023 23:58-0400 Body temperature 98.01 [degF] Nathan Collins MD Work Phone: [facility] 05-24-2023 23:58-0400 Body weight 104.42 kg Nathan Collins MD Work Phone: [facility] 05-24-2023 23:58-0400 Diastolic blood pressure 60 mm[Hg] Nathan Collins MD Work Phone: [facility] 05-24-2023 23:58-0400 Heart rate 72 /min Nathan Collins MD Work Phone: [facility] 05-24-2023 23:58-0400 Respiratory rate 16 /min Nathan Collins MD Work Phone: [facility] 05-24-2023 23:58-0400 SaO2% (BldA) [Mass fraction] 97 % Nathan Collins MD Work Phone: [facility] 05-24-2023 23:58-0400 Systolic blood pressure 120 mm[Hg] Nathan Collins MD Work Phone: [facility] 04-26-2023 11:14-0400 Body temperature 97.7 [degF] Av Sarath Gal Wound Nurse [facility] 04-26-2023 11:14-0400 Diastolic blood pressure 85 mm[Hg] Av Sarath Gal Wound Nurse [facility] 04-26-2023 11:14-0400 Heart rate 74 /min Avg Sarath Gal Wound Nurse [facility] 04-26-2023 11:14-0400 Respiratory rate 18 /min Av Sarath Gal Wound Nurse [facility] 04-26-2023 11:14-0400 Systolic blood pressure 143 mm[Hg] Avg Sarath Gal Wound Nurse [facility] 04-18-2023 12:17-0400 Body height 183.1 cm Nathan Hayden MD Work Phone: [facility] 04-18-2023 12:17-0400 Body mass index (BMI) [Ratio] 31.11 kg/m2 Nathan Hayden MD Work Phone: [facility] 04-18-2023 12:17-0400 Body temperature 97.2 [degF] Nathan Hayden MD Work Phone: [facility] 04-18-2023 12:17-0400 Body weight 104.33 kg Nathan Hayden MD Work Phone: [facility] 04-18-2023 12:17-0400 Diastolic blood pressure 80 mm[Hg] Nathan Hayden MD Work Phone: [facility] 04-18-2023 12:17-0400 Heart rate 84 /min Nathan Hayden MD Work Phone: [facility] 04-18-2023 12:17-0400 Respiratory rate 18 /min Nathan Hayden MD Work Phone: [facility] 04-18-2023 12:17-0400 SaO2% (BldA) [Mass fraction] 93 % Nathan Hayden MD Work Phone: [facility] 04-18-2023 12:17-0400 Systolic blood pressure 138 mm[Hg] Nathan Hayden MD Work Phone: [facility] 04-07-2023 10:10-0400 Body height 183.1 cm Nathan Hayden MD Work Phone: [facility] 04-07-2023 10:10-0400 Body mass index (BMI) [Ratio] 31.24 kg/m2 Nathan Hayden MD Work Phone: [facility] 04-07-2023 10:10-0400 Body temperature 97.9 [degF] Nathan Hayden MD Work Phone: [facility] 04-07-2023 10:10-0400 Body weight 104.78 kg Nathan Hayden MD Work Phone: [facility] 04-07-2023 10:10-0400 Diastolic blood pressure 82 mm[Hg] Nathan Hayden MD Work Phone: [facility] 04-07-2023 10:10-0400 Heart rate 84 /min Nathan Hayden MD Work Phone: [facility] 04-07-2023 10:10-0400 Respiratory rate 18 /min Nathan Hayden MD Work Phone: [facility] 04-07-2023 10:10-0400 SaO2% (BldA) [Mass fraction] 97 % Nathan Hayden MD Work Phone: [facility] 04-07-2023 10:10-0400 Systolic blood pressure 124 mm[Hg] Nathan Hayden MD Work Phone: [facility] 03-31-2023 08:12-0400 Body height 182.9 cm Nathan Hayden MD Work Phone: [facility] 03-31-2023 08:12-0400 Body mass index (BMI) [Ratio] 31.18 kg/m2 Nathan Hayden MD Work Phone: [facility] 03-31-2023 08:12-0400 Body temperature 97.59 [degF] Nathan Hayden MD Work Phone: [facility] 03-31-2023 08:12-0400 Body weight 104.33 kg Nathan Hayden MD Work Phone: [facility] 03-31-2023 08:12-0400 Diastolic blood pressure 82 mm[Hg] Nathan Hayden MD Work Phone: [facility] 03-31-2023 08:12-0400 Heart rate 112 /min Nathan Hayden MD Work Phone: [facility] 03-31-2023 08:12-0400 Respiratory rate 16 /min Nathan Hayden MD Work Phone: [facility] 03-31-2023 08:12-0400 SaO2% (BldA) [Mass fraction] 98 % Nathan Hayden MD Work Phone: [facility] 03-31-2023 08:12-0400 Systolic blood pressure 138 mm[Hg] Nathan Hayden MD Work Phone: [facility] 03-23-2023 18:10-0400 Body temperature 98.1 [degF] Nathan Collins MD Work Phone: [facility] 03-23-2023 18:10-0400 Diastolic blood pressure 66 mm[Hg] Nathan Collins MD Work Phone: [facility] 03-23-2023 18:10-0400 Heart rate 72 /min Nathan Collins MD Work Phone: [facility] 03-23-2023 18:10-0400 Respiratory rate 16 /min Nathan Collins MD Work Phone: [facility] 03-23-2023 18:10-0400 SaO2% (BldA) [Mass fraction] 99 % Nathan Collins MD Work Phone: [facility] 03-23-2023 18:10-0400 Systolic blood pressure 120 mm[Hg] Nathan Collins MD Work Phone: [facility] 03-22-2023 11:25-0400 Body temperature 98.2 [degF] Power Nelson MD Work Phone: [facility] 03-22-2023 11:25-0400 Diastolic blood pressure 73 mm[Hg] Power Nelson MD Work Phone: [facility] 03-22-2023 11:25-0400 Heart rate 68 /min Power Nelson MD Work Phone: [facility] 03-22-2023 11:25-0400 Respiratory rate 19 /min Power Nelson MD Work Phone: [facility] 03-22-2023 11:25-0400 SaO2% (BldA) [Mass fraction] 94 % Power Nelson MD Work Phone: [facility] [facility] 03-22-2023 11:25-0400 Systolic blood pressure 114 mm[Hg] Power Nelson MD Work Phone: [facility] 03-17-2023 03:12-0400 Body height 182.9 cm Power Nelson MD Work Phone: [employer] [facility] 03-16-2023 23:00-0400 Body mass index (BMI) [Ratio] 31.19 kg/m2 Power Nelson MD Work Phone: [facility] 03-16-2023 23:00-0400 Body weight 104.33 kg Power Nelson MD Work Phone: [facility] 03-16-2023 20:44-0400 Diastolic blood pressure 77 mm[Hg] Shai Leonard MD Work Phone: [facility] 03-16-2023 20:44-0400 Heart rate 68 /min Shai Leonard MD Work Phone: [facility] 03-16-2023 20:44-0400 Respiratory rate 16 /min Shai Leonard MD Work Phone: [facility] 03-16-2023 20:44-0400 SaO2% (BldA) [Mass fraction] 96 % Shai Leonard MD Work Phone: [facility] 03-16-2023 20:44-0400 Systolic blood pressure 138 mm[Hg] Shai Leonard MD Work Phone: [facility] 03-16-2023 19:21-0400 Body temperature 97 [degF] Shai Leonard MD Work Phone: [facility] 03-16-2023 16:51-0400 Body mass index (BMI) [Ratio] 29.84 kg/m2 Shai Leonard MD Work Phone: [facility] 03-16-2023 16:51-0400 Body weight 99.79 kg Shai Leonard MD Work Phone: [facility] Comment on above: reported 02-27-2023 00:00-0400 Diastolic blood pressure 57 mm[Hg] Shai Leonard MD Work Phone: [facility] 02-27-2023 00:00-0400 Heart rate 63 /min Shai Leonard MD Work Phone: [facility] 02-27-2023 00:00-0400 Respiratory rate 16 /min Shai Leonard MD Work Phone: [facility] 02-27-2023 00:00-0400 SaO2% (BldA) [Mass fraction] 96 % Shai Leonard MD Work Phone: [facility] 02-27-2023 00:00-0400 Systolic blood pressure 100 mm[Hg] Shai Leonard MD Work Phone: [facility] 02-26-2023 20:37-0400 Body height 182.9 cm Shai Leonard MD Work Phone: [facility] 02-26-2023 20:36-0400 Body temperature 97.39 [degF] Shai Leonard MD Work Phone: [facility] 02-15-2023 15:30-0400 Body temperature 97 [degF] Ami Hay SUSTAINABILITY COORDINATOR-ENVIRONMENTAL EMERGENCIES PLANNER Work Phone: [facility] 02-15-2023 15:30-0400 Diastolic blood pressure 78 mm[Hg] Ami Hay SUSTAINABILITY COORDINATOR-ENVIRONMENTAL EMERGENCIES PLANNER Work Phone: [facility] 02-15-2023 15:30-0400 Heart rate 76 /min Ami Hay SUSTAINABILITY COORDINATOR-ENVIRONMENTAL EMERGENCIES PLANNER Work Phone: [facility] 02-15-2023 15:30-0400 Respiratory rate 18 /min Ami Hay SUSTAINABILITY COORDINATOR-ENVIRONMENTAL EMERGENCIES PLANNER Work Phone: [facility] 02-15-2023 15:30-0400 Systolic blood pressure 127 mm[Hg] Ami Hay SUSTAINABILITY COORDINATOR-ENVIRONMENTAL EMERGENCIES PLANNER Work Phone: [facility] 02-08-2023 15:17-0400 Body height 182.9 cm Kristi Bark DPM Work Phone: [facility] 02-08-2023 15:17-0400 Body mass index (BMI) [Ratio] 30.8 kg/m2 Kristi Bark DPM Work Phone: [facility] 02-08-2023 15:17-0400 Body temperature 97.81 [degF] Kristi Bryan DPM Work Phone: [facility] 02-08-2023 15:17-0400 Body weight 103 kg Kristi Bryan DPM Work Phone: [facility] 02-08-2023 13:16-0400 Body temperature 96.91 [degF] Ami Hay SUSTAINABILITY COORDINATOR-ENVIRONMENTAL EMERGENCIES PLANNER Work Phone: [facility] 02-08-2023 13:16-0400 Diastolic blood pressure 87 mm[Hg] Ami Hay SUSTAINABILITY COORDINATOR-ENVIRONMENTAL EMERGENCIES PLANNER Work Phone: [facility] 02-08-2023 13:16-0400 Heart rate 70 /min Ami Hay SUSTAINABILITY COORDINATOR-ENVIRONMENTAL EMERGENCIES PLANNER Work Phone: [facility] 02-08-2023 13:16-0400 Respiratory rate 18 /min Ami Hay SUSTAINABILITY COORDINATOR-ENVIRONMENTAL EMERGENCIES PLANNER Work Phone: [facility] 02-08-2023 13:16-0400 Systolic blood pressure 142 mm[Hg] Ami Hay SUSTAINABILITY COORDINATOR-ENVIRONMENTAL EMERGENCIES PLANNER Work Phone: [facility] 01-26-2023 10:56-0400 Body height 182.9 cm Nathan Hayden MD Work Phone: [facility] 01-26-2023 10:56-0400 Body mass index (BMI) [Ratio] 29.97 kg/m2 Nathan Hayden MD Work Phone: [facility] 01-26-2023 10:56-0400 Body temperature 98.49 [degF] Nathan Hayden MD Work Phone: [facility] 01-26-2023 10:56-0400 Body weight 100.25 kg Nathan Hayden MD Work Phone: [facility] 01-26-2023 10:56-0400 Diastolic blood pressure 64 mm[Hg] Nathan Hayden MD Work Phone: [facility] 01-26-2023 10:56-0400 Heart rate 93 /min Nathan Hayden MD Work Phone: [facility] 01-26-2023 10:56-0400 Respiratory rate 16 /min Nathan Hayden MD Work Phone: [facility] 01-26-2023 10:56-0400 SaO2% (BldA) [Mass fraction] 93 % Nathan Hayden MD Work Phone: [facility] 01-26-2023 10:56-0400 Systolic blood pressure 134 mm[Hg] Nathan Hayden MD Work Phone: [facility] 01-25-2023 13:45-0400 Body temperature 96.01 [degF] Ami Hay SUSTAINABILITY COORDINATOR-ENVIRONMENTAL EMERGENCIES PLANNER Work Phone: [facility] 01-25-2023 13:45-0400 Diastolic blood pressure 82 mm[Hg] Ami Hay SUSTAINABILITY COORDINATOR-ENVIRONMENTAL EMERGENCIES PLANNER Work Phone: [facility] 01-25-2023 13:45-0400 Heart rate 82 /min Ami Hay SUSTAINABILITY COORDINATOR-ENVIRONMENTAL EMERGENCIES PLANNER Work Phone: [facility] 01-25-2023 13:45-0400 Respiratory rate 19 /min Ami Hay SUSTAINABILITY COORDINATOR-ENVIRONMENTAL EMERGENCIES PLANNER Work Phone: [facility] 01-25-2023 13:45-0400 Systolic blood pressure 132 mm[Hg] Ami Hay SUSTAINABILITY COORDINATOR-ENVIRONMENTAL EMERGENCIES PLANNER Work Phone: [facility] 01-18-2023 13:40-0400 Body temperature 97.59 [degF] Ami Hay SUSTAINABILITY COORDINATOR-ENVIRONMENTAL EMERGENCIES PLANNER Work Phone: [facility] 01-18-2023 13:40-0400 Diastolic blood pressure 66 mm[Hg] Ami Hay SUSTAINABILITY COORDINATOR-ENVIRONMENTAL EMERGENCIES PLANNER Work Phone: [facility] 01-18-2023 13:40-0400 Heart rate 73 /min Ami Hay SUSTAINABILITY COORDINATOR-ENVIRONMENTAL EMERGENCIES PLANNER Work Phone: [facility] 01-18-2023 13:40-0400 Respiratory rate 19 /min Ami Hay SUSTAINABILITY COORDINATOR-ENVIRONMENTAL EMERGENCIES PLANNER Work Phone: [facility] 01-18-2023 13:40-0400 Systolic blood pressure 108 mm[Hg] Ami Hay SUSTAINABILITY COORDINATOR-ENVIRONMENTAL EMERGENCIES PLANNER Work Phone: 7(912)521-690226 [place] [address] 12-28-2022 13:39-0400 Body temperature 96.6 [degF] Ami Hay SUSTAINABILITY COORDINATOR-ENVIRONMENTAL EMERGENCIES PLANNER Work Phone: 1(172)245-899326 [place] [address] 12-28-2022 13:39-0400 Diastolic blood pressure 81 mm[Hg] Ami Hay SUSTAINABILITY COORDINATOR-ENVIRONMENTAL EMERGENCIES PLANNER Work Phone: 1(460)545-717526 [place] [address] 12-28-2022 13:39-0400 Heart rate 73 /min Ami Hay SUSTAINABILITY COORDINATOR-ENVIRONMENTAL EMERGENCIES PLANNER Work Phone: 8(906)672-396726 [place] [address] 12-28-2022 13:39-0400 Respiratory rate 20 /min Ami Hay SUSTAINABILITY COORDINATOR-ENVIRONMENTAL EMERGENCIES PLANNER Work Phone: 7(145)092-268826 [place] [address] 12-28-2022 13:39-0400 Systolic blood pressure 125 mm[Hg] Ami Hay SUSTAINABILITY COORDINATOR-ENVIRONMENTAL EMERGENCIES PLANNER Work Phone: 1(126)040-557126 [place] [address] 12-21-2022 13:08-0400 Body temperature 96.8 [degF] Ami Hay SUSTAINABILITY COORDINATOR-ENVIRONMENTAL EMERGENCIES PLANNER Work Phone: 0(079)046-452926 [place] [address] 12-21-2022 13:08-0400 Diastolic blood pressure 75 mm[Hg] Ami Hay SUSTAINABILITY COORDINATOR-ENVIRONMENTAL EMERGENCIES PLANNER Work Phone: 6(203)995-296426 [place] [address] 12-21-2022 13:08-0400 Heart rate 88 /min Ami Hay SUSTAINABILITY COORDINATOR-ENVIRONMENTAL EMERGENCIES PLANNER Work Phone: 7(999)897-875326 [place] [address] 12-21-2022 13:08-0400 Respiratory rate 18 /min Ami Hay SUSTAINABILITY COORDINATOR-ENVIRONMENTAL EMERGENCIES PLANNER Work Phone: 5(854)078-913126 [place] [address] 12-21-2022 13:08-0400 Systolic blood pressure 115 mm[Hg] Ami Hay SUSTAINABILITY COORDINATOR-ENVIRONMENTAL EMERGENCIES PLANNER Work Phone: 1(110)513-667326 [place] [address] 12-14-2022 09:22-0400 Body temperature 97.81 [degF] Ami Hay SUSTAINABILITY COORDINATOR-ENVIRONMENTAL EMERGENCIES PLANNER Work Phone: 6(141)561-162426 [place] [address] 12-14-2022 09:22-0400 Diastolic blood pressure 62 mm[Hg] Ami Hay SUSTAINABILITY COORDINATOR-ENVIRONMENTAL EMERGENCIES PLANNER Work Phone: [facility] 12-14-2022 09:22-0400 Heart rate 65 /min Ami Hay SUSTAINABILITY COORDINATOR-ENVIRONMENTAL EMERGENCIES PLANNER Work Phone: [facility] 12-14-2022 09:22-0400 Respiratory rate 19 /min Ami Hay SUSTAINABILITY COORDINATOR-ENVIRONMENTAL EMERGENCIES PLANNER Work Phone: [facility] 12-14-2022 09:22-0400 Systolic blood pressure 106 mm[Hg] Ami Hay SUSTAINABILITY COORDINATOR-ENVIRONMENTAL EMERGENCIES PLANNER Work Phone: [facility] 12-08-2022 09:24-0400 Body height 182.9 cm Nathan Hayden MD Work Phone: [facility] 12-08-2022 09:24-0400 Body mass index (BMI) [Ratio] 31.49 kg/m2 Nathan Hayden MD Work Phone: [facility] 12-08-2022 09:24-0400 Body temperature 97.5 [degF] Nathan Hayden MD Work Phone: [facility] 12-08-2022 09:24-0400 Body weight 105.33 kg Nathan Hayden MD Work Phone: [facility] 12-08-2022 09:24-0400 Diastolic blood pressure 78 mm[Hg] Nathan Hayden MD Work Phone: [facility] 12-08-2022 09:24-0400 Heart rate 78 /min Nathan Hayden MD Work Phone: [facility] 12-08-2022 09:24-0400 Respiratory rate 14 /min Nathan Hayden MD Work Phone: [facility] 12-08-2022 09:24-0400 SaO2% (BldA) [Mass fraction] 97 % [facility] 12-08-2022 09:24-0400 Systolic blood pressure 188 mm[Hg] Nathan Hayden MD Work Phone: [facility] 11-30-2022 13:58-0400 Body temperature 97.5 [degF] [facility] 11-30-2022 13:58-0400 Diastolic blood pressure 75 mm[Hg] Av Sarath Gal Wound Nurse [facility] 11-30-2022 13:58-0400 Heart rate 78 /min [facility] 11-30-2022 13:58-0400 Respiratory rate 16 /min [facility] 11-30-2022 13:58-0400 Systolic blood pressure 119 mm[Hg] [facility] 11-25-2022 15:11-0400 Body height 185.4 cm Bridget Dahl MD Work Phone: [facility] 11-25-2022 15:11-0400 Body mass index (BMI) [Ratio] 31.27 kg/m2 Bridget Dahl MD Work Phone: [facility] 11-25-2022 15:11-0400 Body temperature 98.2 [degF] Bridget Dahl MD Work Phone: [facility] 11-25-2022 15:11-0400 Body weight 107.5 kg Bridget Dahl MD Work Phone: [facility] 11-25-2022 15:11-0400 Diastolic blood pressure 59 mm[Hg] Bridget Dahl MD Work Phone: [facility] 11-25-2022 15:11-0400 Heart rate 68 /min Bridget Dahl MD Work Phone: [facility] 11-25-2022 15:11-0400 Respiratory rate 18 /min Bridget Dahl MD Work Phone: [facility] 11-25-2022 15:11-0400 SaO2% (BldA) [Mass fraction] 97 % Bridget Dahl MD Work Phone: [facility] 11-25-2022 15:11-0400 Systolic blood pressure 113 mm[Hg] Bridget Dahl MD Work Phone: [employer] [facility] 11-23-2022 13:37-0400 Body temperature 97.3 [degF] Ami Hay SUSTAINABILITY COORDINATOR-ENVIRONMENTAL EMERGENCIES PLANNER Work Phone: [employer] [facility] 11-23-2022 13:37-0400 Diastolic blood pressure 54 mm[Hg] Ami Hay SUSTAINABILITY COORDINATOR-ENVIRONMENTAL EMERGENCIES PLANNER Work Phone: [employer] [facility] 11-23-2022 13:37-0400 Heart rate 73 /min Ami Hay SUSTAINABILITY COORDINATOR-ENVIRONMENTAL EMERGENCIES PLANNER Work Phone: [employer] [facility] 11-23-2022 13:37-0400 Respiratory rate 20 /min Ami Hay SUSTAINABILITY COORDINATOR-ENVIRONMENTAL EMERGENCIES PLANNER Work Phone: [employer] [facility] 11-23-2022 13:37-0400 Systolic blood pressure 108 mm[Hg] Ami Hay SUSTAINABILITY COORDINATOR-ENVIRONMENTAL EMERGENCIES PLANNER Work Phone: [facility] 11-16-2022 08:03-0400 Body temperature 97.11 [degF] Ami Hay SUSTAINABILITY COORDINATOR-ENVIRONMENTAL EMERGENCIES PLANNER Work Phone: [employer] [facility] 11-16-2022 08:03-0400 Diastolic blood pressure 67 mm[Hg] Ami Hay SUSTAINABILITY COORDINATOR-ENVIRONMENTAL EMERGENCIES PLANNER Work Phone: [employer] [facility] 11-16-2022 08:03-0400 Heart rate 77 /min Ami Hay SUSTAINABILITY COORDINATOR-ENVIRONMENTAL EMERGENCIES PLANNER Work Phone: [employer] [facility] 11-16-2022 08:03-0400 Respiratory rate 18 /min Ami Hay SUSTAINABILITY COORDINATOR-ENVIRONMENTAL EMERGENCIES PLANNER Work Phone: [employer] [facility] 11-16-2022 08:03-0400 Systolic blood pressure 110 mm[Hg] Ami Hay SUSTAINABILITY COORDINATOR-ENVIRONMENTAL EMERGENCIES PLANNER Work Phone: [employer] [facility] 11-03-2022 08:50-0400 Body height 182.9 cm Nathan Hayden MD Work Phone: [facility] 11-03-2022 08:50-0400 Body mass index (BMI) [Ratio] 31.68 kg/m2 Nathan Hayden MD Work Phone: [facility] 11-03-2022 08:50-0400 Body temperature 96.91 [degF] Nathan Hayden MD Work Phone: [facility] 11-03-2022 08:50-0400 Body weight 105.96 kg Nathan Hayden MD Work Phone: [facility] 11-03-2022 08:50-0400 Diastolic blood pressure 78 mm[Hg] Nathan Hayden MD Work Phone: [facility] 11-03-2022 08:50-0400 Heart rate 72 /min Nathan Hayden MD Work Phone: [facility] 11-03-2022 08:50-0400 Respiratory rate 16 /min Nathan Hayden MD Work Phone: [facility] 11-03-2022 08:50-0400 SaO2% (BldA) [Mass fraction] 98 % Nathan Hayden MD Work Phone: [facility] 11-03-2022 08:50-0400 Systolic blood pressure 122 mm[Hg] Nathan Hayden MD Work Phone: [facility] 10-21-2022 13:54-0500 Diastolic blood pressure 76 mm[Hg] Antony Suarez Jr., DO Work Phone: [facility] 10-21-2022 13:54-0500 Heart rate 70 /min Antony Suarez Jr. DO Work Phone: [facility] 10-21-2022 13:54-0500 Respiratory rate 16 /min Antony Suarez Jr., DO Work Phone: [facility] 10-21-2022 13:54-0500 SaO2% (BldA) [Mass fraction] 100 % Antony Suarez Jr. DO Work Phone: [facility] 10-21-2022 13:54-0500 Systolic blood pressure 123 mm[Hg] Antony Suarez Jr., DO Work Phone: [facility] 10-21-2022 13:44-0500 Body temperature 96.91 [degF] Antony Suarez Jr., DO Work Phone: [facility] 10-21-2022 11:24-0500 Body height 182.9 cm Antony Erick Snow, DO Work Phone: [facility] 10-21-2022 11:24-0500 Body mass index (BMI) [Ratio] 30.38 kg/m2 Atnony Suarez Jr., DO Work Phone: [facility] 10-21-2022 11:24-0500 Body weight 101.61 kg Antony Suarez Jr., DO Work Phone: [facility] 09-29-2022 11:03-0500 Body height 182.9 cm Nathan Hayden MD Work Phone: [facility] 09-29-2022 11:03-0500 Body mass index (BMI) [Ratio] 30.41 kg/m2 Nathan Hayden MD Work Phone: [facility] 09-29-2022 11:03-0500 Body temperature 97.2 [degF] Nathan Hayden MD Work Phone: [facility] 09-29-2022 11:03-0500 Body weight 101.7 kg Nathan Hayden MD Work Phone: [facility] 09-29-2022 11:03-0500 Diastolic blood pressure 78 mm[Hg] Nathan Hayden MD Work Phone: [facility] 09-29-2022 11:03-0500 Heart rate 88 /min Nathan Hayden MD Work Phone: [facility] 09-29-2022 11:03-0500 Respiratory rate 16 /min Nathan Hayden MD Work Phone: [facility] 09-29-2022 11:03-0500 SaO2% (BldA) [Mass fraction] 97 % Nathan Hayden MD Work Phone: [facility] 09-29-2022 11:03-0500 Systolic blood pressure 124 mm[Hg] Nathan Hayden MD Work Phone: [facility] 08-26-2022 15:47-0500 Body height 182.9 cm Antony Suarez Jr., DO Work Phone: [facility] 08-26-2022 15:47-0500 Body mass index (BMI) [Ratio] 30.79 kg/m2 Antony Suarez Jr., DO Work Phone: [facility] 08-26-2022 15:47-0500 Body weight 102.97 kg Antony Suarez Jr., DO Work Phone: [facility] 08-25-2022 10:35-0500 Body height 185.4 cm Nathan Hadyen MD Work Phone: [facility] 08-25-2022 10:35-0500 Body mass index (BMI) [Ratio] 30.11 kg/m2 Nathan Hayden MD Work Phone: [facility] 08-25-2022 10:35-0500 Body temperature 97.11 [degF] Nathan Hayden MD Work Phone: [facility] 08-25-2022 10:35-0500 Body weight 103.51 kg Nathan Hayden MD Work Phone: [facility] 08-25-2022 10:35-0500 Diastolic blood pressure 72 mm[Hg] Nathan Hayden MD Work Phone: [facility] 08-25-2022 10:35-0500 Heart rate 84 /min Nathan Hayden MD Work Phone: [facility] 08-25-2022 10:35-0500 Respiratory rate 14 /min Nathan Hayden MD Work Phone: [facility] 08-25-2022 10:35-0500 SaO2% (BldA) [Mass fraction] 94 % Nathan Hayden MD Work Phone: [facility] 08-25-2022 10:35-0500 Systolic blood pressure 128 mm[Hg] Nathan Hayden MD Work Phone: [facility] 07-07-2022 11:35-0500 Body height 185.4 cm Nathan Hayden MD Work Phone: [facility] 07-07-2022 11:35-0500 Body mass index (BMI) [Ratio] 31.9 kg/m2 Nathan Hayden MD Work Phone: [facility] 07-07-2022 11:35-0500 Body temperature 100.4 [degF] Nathan Hayden MD Work Phone: [facility] 07-07-2022 11:35-0500 Body weight 109.68 kg Nathan Hayden MD Work Phone: [facility] 07-07-2022 11:35-0500 Diastolic blood pressure 80 mm[Hg] Nathan Hayden MD Work Phone: [facility] 07-07-2022 11:35-0500 Heart rate 91 /min Nathan Hayden MD Work Phone: [facility] 07-07-2022 11:35-0500 Respiratory rate 13 /min Nathan Hayden MD Work Phone: [facility] 07-07-2022 11:35-0500 SaO2% (BldA) [Mass fraction] 96 % Nathan Hayden MD Work Phone: [facility] 07-07-2022 11:35-0500 Systolic blood pressure 130 mm[Hg] Nathan Hayden MD Work Phone: [facility] 06-07-2022 18:27-0400 Body height 182.9 cm Pattie DYSON Work Phone: [facility] 06-07-2022 18:27-0400 Body mass index (BMI) [Ratio] 32.67 kg/m2 Pattie DYSON Work Phone: [facility] 06-07-2022 18:27-0400 Body temperature 98.1 [degF] Pattie Roman SUSTAINABILITY COORDINATOR-ENVIRONMENTAL EMERGENCIES PLANNER Work Phone: [facility] 06-07-2022 18:27-0400 Body weight 109.27 kg Pattie Roman SUSTAINABILITY COORDINATOR-ENVIRONMENTAL EMERGENCIES PLANNER Work Phone: [facility] 06-07-2022 18:27-0400 Diastolic blood pressure 83 mm[Hg] Pattie Roman SUSTAINABILITY COORDINATOR-ENVIRONMENTAL EMERGENCIES PLANNER Work Phone: [facility] 06-07-2022 18:27-0400 Heart rate 74 /min Pattie Roman SUSTAINABILITY COORDINATOR-ENVIRONMENTAL EMERGENCIES PLANNER Work Phone: [facility] 06-07-2022 18:27-0400 Respiratory rate 18 /min Pattie Roman SUSTAINABILITY COORDINATOR-ENVIRONMENTAL EMERGENCIES PLANNER Work Phone: [facility] 06-07-2022 18:27-0400 SaO2% (BldA) [Mass fraction] 95 % Pattie Roman SUSTAINABILITY COORDINATOR-ENVIRONMENTAL EMERGENCIES PLANNER Work Phone: [facility] 06-07-2022 18:27-0400 Systolic blood pressure 145 mm[Hg] Pattie Roman SUSTAINABILITY COORDINATOR-ENVIRONMENTAL EMERGENCIES PLANNER Work Phone: [facility] 05-12-2022 18:49-0400 Body height 182.9 cm Ani Worley SUSTAINABILITY COORDINATOR-ENVIRONMENTAL EMERGENCIES PLANNER Work Phone: [facility] 05-12-2022 18:49-0400 Body mass index (BMI) [Ratio] 33.91 kg/m2 Ani Thomneftaly SUSTAINABILITY COORDINATOR-ENVIRONMENTAL EMERGENCIES PLANNER Work Phone: [facility] 05-12-2022 18:49-0400 Body weight 113.4 kg Ani Thomneftaly SUSTAINABILITY COORDINATOR-ENVIRONMENTAL EMERGENCIES PLANNER Work Phone: [facility] 05-12-2022 18:48-0400 Body temperature 98.6 [degF] Ani Meir SUSTAINABILITY COORDINATOR-ENVIRONMENTAL EMERGENCIES PLANNER Work Phone: [facility] 05-12-2022 18:48-0400 Diastolic blood pressure 61 mm[Hg] Ani Delany SUSTAINABILITY COORDINATOR-ENVIRONMENTAL EMERGENCIES PLANNER Work Phone: [employer] [facility] 05-12-2022 18:48-0400 Heart rate 84 /min Ani Worley APRN-ENVIRONMENTAL EMERGENCIES PLANNER Work Phone: [employer] [facility] 05-12-2022 18:48-0400 Respiratory rate 22 /min Ani Worley APRN-ENVIRONMENTAL EMERGENCIES PLANNER Work Phone: [employer] [facility] 05-12-2022 18:48-0400 SaO2% (BldA) [Mass fraction] 94 % Ani Worley APRN-ENVIRONMENTAL EMERGENCIES PLANNER Work Phone: [employer] [facility] 05-12-2022 18:48-0400 Systolic blood pressure 131 mm[Hg] Ani Worley APRN-ENVIRONMENTAL EMERGENCIES PLANNER Work Phone: [employer] [facility] 05-03-2022 18:58-0400 Body height 182.9 cm Zhao Abraham MD Work Phone: [facility] [employer] 05-03-2022 18:58-0400 Body mass index (BMI) [Ratio] 33.23 kg/m2 Zhao Abraham MD Work Phone: [facility] [employer] 05-03-2022 18:58-0400 Body temperature 98.2 [degF] Zhao Abraham MD Work Phone: [facility] [employer] 05-03-2022 18:58-0400 Body weight 111.13 kg Zhao Abraham MD Work Phone: [facility] [employer] 05-03-2022 18:58-0400 Diastolic blood pressure 59 mm[Hg] Zhao Abraham MD Work Phone: [facility] [employer] 05-03-2022 18:58-0400 Heart rate 85 /min Zhao Abraham MD Work Phone: [facility] [employer] 05-03-2022 18:58-0400 Respiratory rate 18 /min Zhao Abraham MD Work Phone: [facility] 05-03-2022 18:58-0400 SaO2% (BldA) [Mass fraction] 98 % Zhao Abraham MD Work Phone: [facility] 05-03-2022 18:58-0400 Systolic blood pressure 113 mm[Hg] Zhao Abraham MD Work Phone: [facility] 04-21-2022 10:58-0400 Body temperature 98.29 [degF] Carolina Solis MD Work Phone: [facility] 04-21-2022 10:58-0400 Diastolic blood pressure 47 mm[Hg] Carolina Solis MD Work Phone: [facility] 04-21-2022 10:58-0400 Heart rate 63 /min Carolina Solis MD Work Phone: [facility] 04-21-2022 10:58-0400 Respiratory rate 16 /min Carolina Solis MD Work Phone: [facility] 04-21-2022 10:58-0400 SaO2% (BldA) [Mass fraction] 92 % Carolina Solis MD Work Phone: [facility] 04-21-2022 10:58-0400 Systolic blood pressure 87 mm[Hg] Carolina Solis MD Work Phone: [facility] 04-20-2022 18:51-0400 Body height 182.9 cm Carolina Solis MD Work Phone: [facility] 04-20-2022 18:51-0400 Body mass index (BMI) [Ratio] 36.66 kg/m2 Carolina Solis MD Work Phone: [facility] 04-20-2022 18:51-0400 Body weight 122.6 kg Carolina Solis MD Work Phone: [facility] 03-07-2022 02:19-0400 Diastolic blood pressure 62 mm[Hg] Nuno Cantor MD Work Phone: [employer] [facility] [facility] 03-07-2022 02:19-0400 Heart rate 86 /min Nuno Cantor MD Work Phone: [facility] 03-07-2022 02:19-0400 Respiratory rate 20 /min Nuno Cantor MD Work Phone: [facility] 03-07-2022 02:19-0400 SaO2% (BldA) [Mass fraction] 97 % Nuno Cantor MD Work Phone: [facility] 03-07-2022 02:19-0400 Systolic blood pressure 109 mm[Hg] Nuno Cantor MD Work Phone: [facility] 03-07-2022 00:02-0400 Body height 182.9 cm Nuno Cantor MD Work Phone: [facility] 03-07-2022 00:02-0400 Body mass index (BMI) [Ratio] 33.91 kg/m2 Nuno Cantor MD Work Phone: [facility] 03-07-2022 00:02-0400 Body weight 113.4 kg Nuno Cantor MD Work Phone: [facility] 03-07-2022 00:00-0400 Body temperature 99.39 [degF] Nuno Cantor MD Work Phone: [facility] 11-15-2021 11:52-0400 Body temperature 98.29 [degF] Nuno Cantor MD Work Phone: [facility] 11-15-2021 11:52-0400 Diastolic blood pressure 77 mm[Hg] Nuno Cantor MD Work Phone: [facility] 11-15-2021 11:52-0400 Heart rate 81 /min Nuno Cantor MD Work Phone: [facility] 11-15-2021 11:52-0400 Respiratory rate 22 /min Nuno Cantor MD Work Phone: [facility] 11-15-2021 11:52-0400 SaO2% (BldA) [Mass fraction] 95 % Nuno Cantor MD Work Phone: [facility] 11-15-2021 11:52-0400 Systolic blood pressure 135 mm[Hg] Nuno Cantor MD Work Phone: [facility] 11-15-2021 08:18-0400 Body mass index (BMI) [Ratio] 36.77 kg/m2 Nuno Cantor MD Work Phone: [facility] 11-15-2021 08:18-0400 Body weight 122.97 kg Nuno Cantor MD Work Phone: [employer] [facility] 11-13-2021 00:00-0400 Body height 182.9 cm Nuno Cantor MD Work Phone: [employer] 10-07-2021 12:19-0500 Body mass index (BMI) [Ratio] 40.69 kg/m2 Anidavid Tomasany SUSTAINABILITY COORDINATOR-ENVIRONMENTAL EMERGENCIES PLANNER Work Phone: [employer] [facility] 10-07-2021 12:19-0500 Body weight 136.08 kg Ani Delany SUSTAINABILITY COORDINATOR-ENVIRONMENTAL EMERGENCIES PLANNER Work Phone: [employer] [facility] 10-07-2021 12:18-0500 Body temperature 98.71 [degF] Ani Delany SUSTAINABILITY COORDINATOR-ENVIRONMENTAL EMERGENCIES PLANNER Work Phone: [employer] [facility] 10-07-2021 12:18-0500 Diastolic blood pressure 72 mm[Hg] Ani Delany SUSTAINABILITY COORDINATOR-ENVIRONMENTAL EMERGENCIES PLANNER Work Phone: [employer] [facility] 10-07-2021 12:18-0500 Heart rate 93 /min Ani Delany SUSTAINABILITY COORDINATOR-ENVIRONMENTAL EMERGENCIES PLANNER Work Phone: [employer] [facility] 10-07-2021 12:18-0500 Respiratory rate 24 /min Ani Delany SUSTAINABILITY COORDINATOR-ENVIRONMENTAL EMERGENCIES PLANNER Work Phone: [employer] [facility] 10-07-2021 12:18-0500 SaO2% (BldA) [Mass fraction] 95 % Ani Delany SUSTAINABILITY COORDINATOR-ENVIRONMENTAL EMERGENCIES PLANNER Work Phone: [employer] [facility] 10-07-2021 12:18-0500 Systolic blood pressure 154 mm[Hg] Anidavid Worley SUSTAINABILITY COORDINATOR-ENVIRONMENTAL EMERGENCIES PLANNER Work Phone: [employer] [facility] 04-14-2021 13:15-0400 Body height 182.9 cm Felipe Molina DPM Work Phone: [employer] 04-14-2021 13:15-0400 Body mass index (BMI) [Ratio] 35.94 kg/m2 Felipe Molina DPM Work Phone: [employer] 04-14-2021 13:15-0400 Body weight 120.2 kg Felipe Molina DPM Work Phone: [employer] [facility] 04-14-2021 13:15-0400 Diastolic blood pressure 74 mm[Hg] Felipe Molina DPM Work Phone: [employer] [facility] 04-14-2021 13:15-0400 Heart rate 78 /min Felipe Molina DPM Work Phone: [employer] 04-14-2021 13:15-0400 Systolic blood pressure 122 mm[Hg] Felipe Molina DPM Work Phone: [employer] 04-04-2021 02:18-0400 Body height 182.9 cm Nuno Cantor MD Work Phone: [employer] [facility] 04-04-2021 02:17-0400 Body temperature 97.59 [degF] Nuno Cantor MD Work Phone: [employer] [facility] 04-04-2021 02:17-0400 Diastolic blood pressure 57 mm[Hg] Nuno Cantor MD Work Phone: [employer] 04-04-2021 02:17-0400 Heart rate 80 /min Nuno Cantor MD Work Phone: [employer] 04-04-2021 02:17-0400 Respiratory rate 18 /min Nuno Cantor MD Work Phone: [employer] [facility] 04-04-2021 02:17-0400 SaO2% (BldA) [Mass fraction] 95 % Nuno Cantor MD Work Phone: [facility] 04-04-2021 02:17-0400 Systolic blood pressure 120 mm[Hg] Nuno Cantor MD Work Phone: [facility] 03-30-2021 12:47-0400 Body height 182.9 cm Sofía Devine MD Work Phone: [facility] 03-30-2021 12:47-0400 Body mass index (BMI) [Ratio] 35.94 kg/m2 Sofía Devine MD Work Phone: [facility] 03-30-2021 12:47-0400 Body weight 120.2 kg Sofía Devine MD Work Phone: [facility] 03-30-2021 12:46-0400 Body temperature 97.9 [degF] Sofía Devine MD Work Phone: [facility] 03-30-2021 12:46-0400 Diastolic blood pressure 67 mm[Hg] Sofía Devine MD Work Phone: [facility] 03-30-2021 12:46-0400 Heart rate 82 /min Sofía Devine MD Work Phone: [facility] 03-30-2021 12:46-0400 Respiratory rate 18 /min Sofía Devine MD Work Phone: [facility] 03-30-2021 12:46-0400 SaO2% (BldA) [Mass fraction] 96 % Sofía Devine MD Work Phone: [facility] 03-30-2021 12:46-0400 Systolic blood pressure 129 mm[Hg] Sofía Devine MD Work Phone: [facility] 02-02-2021 17:47-0400 Diastolic blood pressure 36 mm[Hg] Saulo Joseph MD Work Phone: [facility] 02-02-2021 17:47-0400 Heart rate 72 /min Saulo Joseph MD Work Phone: [facility] 02-02-2021 17:47-0400 Systolic blood pressure 104 mm[Hg] Saulo Joseph MD Work Phone: [facility] 02-02-2021 15:37-0400 Body temperature 98.2 [degF] Saulo Joseph MD Work Phone: [facility] 02-02-2021 15:37-0400 Respiratory rate 18 /min Saulo Joseph MD Work Phone: [facility] 02-02-2021 15:37-0400 SaO2% (BldA) [Mass fraction] 97 % Saulo Joseph MD Work Phone: [facility] 02-02-2021 15:36-0400 Body height 182.9 cm Saulo Joseph MD Work Phone: [facility] 02-02-2021 15:36-0400 Body mass index (BMI) [Ratio] 36.62 kg/m2 Saulo Joseph MD Work Phone: [facility] 02-02-2021 15:36-0400 Body weight 122.47 kg Saulo Joseph MD Work Phone: [facility] 01-15-2021 11:58-0400 Body mass index (BMI) [Ratio] 36.89 kg/m2 Diego Gupta MD Work Phone: [employer] Work Phone: 01-15-2021 11:58-0400 Body temperature 97.39 [degF] Diego Gupta MD Work Phone: [employer] Work Phone: 01-15-2021 11:58-0400 Body weight 123.38 kg Diego Gupta MD Work Phone: [employer] Work Phone: 01-15-2021 11:58-0400 Diastolic blood pressure 66 mm[Hg] Diego Gupta MD Work Phone: [employer] Work Phone: 01-15-2021 11:58-0400 Heart rate 66 /min Diego Gupta MD Work Phone: [employer] Work Phone: 01-15-2021 11:58-0400 Respiratory rate 16 /min Diego Gupta MD Work Phone: [employer] Work Phone: 01-15-2021 11:58-0400 SaO2% (BldA) [Mass fraction] 99 % Diego Gupta MD Work Phone: [employer] Work Phone: 01-15-2021 11:58-0400 Systolic blood pressure 107 mm[Hg] Diego Gupta MD Work Phone: [employer] Work Phone: 12-04-2020 13:11-0400 BP Diastolic 64 mm[Hg] [facility] 12-04-2020 13:11-0400 BP Systolic 123 mm[Hg] [facility] 12-04-2020 13:11-0400 Pulse (Heart Rate) 76 /min [facility] 12-04-2020 13:11-0400 Pulse Oximetry 94 % [facility] 12-04-2020 13:11-0400 Respiratory Rate 18 /min [facility] 12-04-2020 07:57-0400 Body Temperature 98.01 [degF] [facility] 12-04-2020 06:00-0400 BMI (Body Mass Index) 38.44 kg/m2 [facility] 12-04-2020 06:00-0400 Body weight 128.55 kg [facility] 12-03-2020 11:28-0400 Height 182.9 cm [facility] 11-01-2020 18:00-0500 BP Diastolic 83 mm[Hg] [facility] 11-01-2020 18:00-0500 BP Systolic 133 mm[Hg] [facility] 11-01-2020 18:00-0500 Pulse (Heart Rate) 63 /min Christopher Ng [facility] 11-01-2020 18:00-0500 Pulse Oximetry 97 % Christopher Ng [facility] 11-01-2020 16:00-0500 BMI (Body Mass Index) 36.62 kg/m2 Christophermireille Ng [facility] 11-01-2020 16:00-0500 Body Temperature 98.71 [degF] Christophermireille Ng [facility] 11-01-2020 16:00-0500 Body weight 122.47 [facility] 16:00-0500 Height 182.9 cm [facility]-01-2020 16:00-0500 Respiratory Rate 18 /min Christopher [facility] 09-03-2020 14:09-0500 BMI (Body Mass Index) 38.31 kg/m2 [facility] 09-03-2020 14:09-0500 Body Temperature 95.4 [degF] [facility] 09-03-2020 14:09-0500 Body weight 128.14 kg [facility] 09-03-2020 14:09-0500 BP Diastolic 74 mm[Hg] [facility] 09-03-2020 14:09-0500 BP Systolic 124 mm[Hg] [facility] 09-03-2020 14:09-0500 Height 182.9 cm [facility] 09-03-2020 14:09-0500 Pulse (Heart Rate) 88 /min [facility] 09-03-2020 14:09-0500 Pulse Oximetry 95 % [facility] 09-03-2020 14:09-0500 Respiratory Rate 18 /min [facility] 08-01-2020 09:30-0500 BP [facility] 70 [facility] 09:30-0500 BP Systolic 117 mm[Hg] Saulo [facility] 08-01-2020 09:30-0500 Pulse (Heart Rate) 63 /[facility] 09:30-0500 Pulse Oximetry 97 % [facility] 08-01-2020 09:30-0500 Respiratory Rate 16 /min [facility] 08-01-2020 08:03-0500 Respiratory rate 0 /min [facility] 08-01-2020 07:45-0500 BMI (Body Mass Index) 35.94 kg/m2 [facility] 08-01-2020 07:45-0500 Body Temperature 98.1 [degF] [facility] 08-01-2020 07:45-0500 Body weight 120.2 kg [facility] 08-01-2020 07:45-0500 Height 182.9 cm [facility] 07-14-2020 11:11-0500 BMI (Body Mass Index) 41.37 kg/m2 [facility] 07-14-2020 11:11-0500 Body Temperature 97.5 [degF] [facility] 07-14-2020 11:11-0500 Body weight 138.35 kg [facility] 07-14-2020 11:11-0500 BP Diastolic 72 mm[Hg] [facility] 07-14-2020 11:11-0500 BP Systolic 124 mm[Hg] [facility] 07-14-2020 11:11-0500 Height 182.9 cm [facility] 07-14-2020 11:11-0500 Pulse (Heart Rate) 92 /min [facility] 07-14-2020 11:11-0500 Pulse Oximetry 94 % [facility] 07-14-2020 11:11-0500 Respiratory Rate 22 /min [facility] 07-09-2020 20:01-0500 Pulse Oximetry 94 % [facility] 07-09-2020 18:00-0500 BP Diastolic 84 mm[Hg] [facility] 07-09-2020 18:00-0500 BP Systolic 160 mm[Hg] [facility] 07-09-2020 18:00-0500 Pulse (Heart Rate) 61 /min [facility] 07-09-2020 18:00-0500 Respiratory Rate 17 /min [facility] 07-09-2020 11:22-0500 Body Temperature 97.2 [degF] [facility] 07-09-2020 05:48-0500 BMI (Body Mass Index) 41.86 kg/m2 [facility] 07-09-2020 05:48-0500 Body weight 140 kg [facility] 07-08-2020 04:45-0500 Height 182.9 cm [facility] 07-08-2020 02:30-0500 Respiratory rate 16 /min [facility] 07-07-2020 23:46-0500 Respiratory rate 16 /min [facility] 06-30-2020 13:25-0500 BMI (Body Mass Index) 38.92 kg/m2 Sb [facility] 06-30-2020 13:25-0500 Body weight 130.18 kg Sb [facility] 06-30-2020 13:25-0500 BP Diastolic 83 mm[Hg] Sb [facility] 06-30-2020 13:25-0500 BP Systolic 138 mm[Hg] Sb [facility] 06-30-2020 13:25-0500 Height 182.9 cm Sb [facility] 06-30-2020 13:25-0500 Pulse (Heart Rate) 89 /min Sb [facility] 04-22-2020 14:04-0400 BMI (Body Mass Index) 38.92 kg/m2 Sb [facility] 04-22-2020 14:04-0400 Body weight 130.18 kg Sbkendra Andino [facility] 04-22-2020 14:04-0400 BP Diastolic 85 mm[Hg] Sbkendra Andino [facility] 04-22-2020 14:04-0400 BP Systolic 138 mm[Hg] Sb [facility] 04-22-2020 14:04-0400 Height 182.9 cm Sb [facility] 04-22-2020 14:04-0400 Pulse (Heart Rate) 86 /min Sb [facility] 01-18-2020 11:25-0400 Body Temperature 98.29 [degF] Nisa Tavares [facility] 01-18-2020 11:25-0400 BP Diastolic 80 mm[Hg] Nisa Tavares [facility] 01-18-2020 11:25-0400 BP Systolic 138 mm[Hg] Nisa Tavares [facility] 01-18-2020 11:25-0400 Pulse (Heart Rate) 89 /min Nisa Tavares [facility] 05-29-2020 11:25-0400 Pulse Oximetry 96 % Nisa Tavares [facility] 01-18-2020 11:25-0400 Respiratory Rate 20 /min Nisa Tavares [facility] 01-18-2020 10:09-0400 Body Temperature 97.5 [degF] Leandro [facility] 01-18-2020 10:09-0400 BP Diastolic 82 mm[Hg] [facility] 01-18-2020 10:09-0400 BP Systolic 142 mm[Hg] Leandro [facility] 01-18-2020 10:09-0400 Pulse (Heart Rate) 85 /min Leandro [facility] 01-18-2020 10:09-0400 Pulse Oximetry 97 % Leandro [facility] 01-17-2020 09:11-0400 Body Temperature 98.8 [degF] [facility] 01-17-2020 09:11-0400 BP Diastolic 68 mm[Hg] [facility] 01-17-2020 09:11-0400 BP Systolic 123 mm[Hg] Leandro [facility] 01-17-2020 09:11-0400 Pulse (Heart Rate) 98 /min Leandro [facility] 01-17-2020 09:11-0400 Pulse Oximetry 97 % Leandro [facility] 01-15-2020 13:03-0400 Body Temperature 98.2 [degF] [facility] 01-15-2020 13:03-0400 BP Diastolic 84 mm[Hg] [facility] 01-15-2020 13:03-0400 BP Systolic 146 mm[Hg] [facility] 01-15-2020 13:03-0400 Pulse (Heart Rate) 74 /min [facility] 01-15-2020 13:03-0400 Pulse Oximetry 97 % [facility] 01-15-2020 13:03-0400 Respiratory Rate 16 /min [facility] 01-13-2020 18:01-0400 Body Temperature 99.3 [degF] Harris Vargas [facility] 01-13-2020 18:01-0400 Pulse (Heart Rate) 90 /min Harriscameron HernándezAlicia [facility] 01-13-2020 18:01-0400 Pulse Oximetry 95 % Harris Vargas [facility] 01-13-2020 18:01-0400 Respiratory Rate 14 /min Harris Vargas [facility] 01-11-2020 11:12-0400 Body Temperature 98.4 [degF] [facility] 01-11-2020 11:12-0400 BP Diastolic 72 mm[Hg] [facility] 01-11-2020 11:12-0400 BP Systolic 126 mm[Hg] [facility] 01-11-2020 11:12-0400 Pulse (Heart Rate) 64 /min [facility] 01-11-2020 11:12-0400 Pulse Oximetry 96 % [facility] 01-11-2020 11:12-0400 Respiratory Rate 18 /min [facility] 01-10-2020 11:32-0400 Body Temperature 98.1 [degF] Leandro Sanchez [facility] 01-10-2020 11:32-0400 BP Diastolic 75 mm[Hg] Leandro [facility] 01-10-2020 11:32-0400 BP Systolic 132 mm[Hg] Leandro [facility] 01-10-2020 11:32-0400 Pulse (Heart Rate) 75 /min Leandro Sanchez [facility] 01-10-2020 11:32-0400 Pulse Oximetry 97 % Leandro Sanchez [facility] 01-09-2020 10:55-0400 Body Temperature 98.4 [degF] Pinky Brown [facility] 01-09-2020 10:55-0400 BP Diastolic 84 mm[Hg] [facility] 01-09-2020 10:55-0400 BP Systolic 142 mm[Hg] [facility] 01-09-2020 10:55-0400 Pulse (Heart Rate) 88 /min [facility] 01-09-2020 10:55-0400 Pulse Oximetry 98 % [facility] 01-09-2020 10:55-0400 Respiratory Rate 16 /min [facility] 01-08-2020 20:06-0400 Respiratory Rate 20 /min Sofía Dukes [facility] 01-08-2020 16:28-0400 Body Temperature 97.7 [degF] Sofía Dukes [facility] 01-08-2020 16:28-0400 BP Diastolic 76 mm[Hg] Sofía Dukes [facility] 01-08-2020 16:28-0400 BP Systolic 150 mm[Hg] Sofíagilmar Dukes [facility] 01-08-2020 16:28-0400 Pulse (Heart Rate) 70 /min Sofía Dukes [facility] 01-08-2020 16:28-0400 Pulse Oximetry 96 % Sofía Blayne [facility] 01-08-2020 05:54-0400 BMI (Body Mass Index) 38.96 kg/m2 Sofía Blayne [facility] 01-08-2020 05:54-0400 Body weight 130.3 kg Sofíagilmar Dukes [facility] 01-08-2020 05:54-0400 Height 182.9 cm Sofía [facility] 01-04-2020 14:51-0400 BMI (Body Mass Index) 35.26 kg/m2 [facility] 01-04-2020 14:51-0400 Body weight 117.94 kg [facility] 01-04-2020 14:51-0400 BP Diastolic 89 mm[Hg] [facility] 01-04-2020 14:51-0400 BP Systolic 152 mm[Hg] [facility] 01-04-2020 14:51-0400 Height 182.9 cm [facility] 01-04-2020 14:51-0400 Pulse (Heart Rate) 83 /min [facility] 01-04-2020 14:51-0400 Pulse Oximetry 92 % [facility] 11-06-2019 21:28-0400 Pulse Oximetry 94 % [facility] [place] 11-06-2019 19:17-0400 Body Temperature 97.81 [degF] [facility] [place] 11-06-2019 19:17-0400 BP Diastolic 74 mm[Hg] [facility]conrad Chon [facility] [place] 11-06-2019 19:17-0400 BP Systolic 137 mm[Hg] [facility] [place] 11-06-2019 19:17-0400 Pulse (Heart Rate) 81 /min Bradner Chon [facility] [place] 11-06-2019 19:17-0400 Respiratory Rate 20 /min [place] 11-06-2019 05:36-0400 BMI (Body Mass Index) 38.41 kg/m2 [facility]conrad [facility] [place] 11-06-2019 05:36-0400 Body weight 128.46 kg [place] 11-06-2019 05:36-0400 Height 182.9 cm [place] 10-30-2019 14:43-0400 BMI (Body Mass Index) 41.15 kg/m2 [facility] 10-30-2019 14:43-0400 Body weight 137.62 kg [facility] 10-30-2019 14:43-0400 BP Diastolic 70 mm[Hg] [facility] 10-30-2019 14:43-0400 BP Systolic 112 mm[Hg] [facility] 10-30-2019 14:43-0400 Height 182.9 cm [facility] 10-30-2019 14:43-0400 Pulse (Heart Rate) 85 /min [facility] 10-30-2019 14:43-0400 Pulse Oximetry 96 % [facility] 10-30-2019 14:43-0400 Respiratory Rate 16 /min [facility] 04-05-2019 05:32-0400 BP Diastolic 80 mm[Hg] [facility] 04-05-2019 05:32-0400 BP Systolic 130 mm[Hg] [facility] 04-05-2019 05:32-0400 Pulse (Heart Rate) 58 /min [facility] 04-05-2019 05:32-0400 Pulse Oximetry 97 % [facility] 04-05-2019 05:32-0400 Respiratory Rate 22 /min [facility] 04-03-2019 10:38-0400 BP Diastolic 55 mm[Hg] [facility] 04-03-2019 10:38-0400 BP Systolic 140 mm[Hg] [facility] 04-03-2019 10:38-0400 Pulse (Heart Rate) 65 /min [facility] 04-03-2019 10:38-0400 Pulse Oximetry 99 % [facility] 04-03-2019 10:38-0400 Respiratory Rate 18 /min [place] [facility] 04-03-2019 08:00-0400 Body Temperature 98.49 [degF] [facility] 11-06-2018 11:16-0400 BMI (Body Mass Index) 39.77 kg/m2 [facility] 11-06-2018 11:16-0400 Body Temperature 98.2 [degF] [facility] 11-06-2018 11:16-0400 BP Diastolic 68 mm[Hg] [facility] 11-06-2018 11:16-0400 BP Systolic 124 mm[Hg] [facility] 11-06-2018 11:16-0400 Height 182.9 cm [facility] 11-06-2018 11:16-0400 Pulse (Heart Rate) 84 /min [facility] 11-06-2018 11:16-0400 Pulse Oximetry 97 % [facility] 11-06-2018 11:16-0400 Respiratory Rate 16 /min [facility] 11-06-2018 11:16-0400 Weight 133 kg [facility] 10-06-2018 08:50-0500 BMI (Body Mass Index) 37.97 kg/m2 Sb Exten [facility] 10-06-2018 08:50-0500 BP Diastolic 65 mm[Hg] Sb Exten [facility] 10-06-2018 08:50-0500 BP Systolic 111 mm[Hg] Sb Exten [facility] 10-06-2018 08:50-0500 Height 182.9 cm Sb Exten [facility] 10-06-2018 08:50-0500 Pulse (Heart Rate) 63 /min Sb Exten [facility] 10-06-2018 08:50-0500 Weight 127.01 kg Sb Exten [facility] 09-15-2018 11:19-0500 BMI (Body Mass Index) 37.97 kg/m2 Sb Exten [facility] 09-15-2018 11:19-0500 BP Diastolic 82 mm[Hg] Sb Exten [facility] 09-15-2018 11:19-0500 BP Systolic 138 mm[Hg] Sb Exten [facility] 09-15-2018 11:19-0500 Height 182.9 cm Sb Andino [facility] 09-15-2018 11:19-0500 Pulse (Heart Rate) 80 /min Sb Andino [facility] 09-15-2018 11:19-0500 Weight 127.01 kg Sb Andino [facility] 07-31-2018 10:31-0500 BMI (Body Mass Index) 37.97 kg/m2 [facility] 07-31-2018 10:31-0500 Body Temperature 97.9 [degF] [facility] 07-31-2018 10:31-0500 Height 182.9 cm [facility] 07-31-2018 10:31-0500 Pulse (Heart Rate) 80 /min [facility] 07-31-2018 10:31-0500 Pulse Oximetry 94 % [facility] 07-31-2018 10:31-0500 Weight 127.01 kg [facility] 03-31-2018 10:13-0400 BMI (Body Mass Index) 38.79 kg/m2 Sb [facility] 03-31-2018 10:13-0400 BP Diastolic 84 mm[Hg] Sb Andino [facility] 03-31-2018 10:13-0400 BP Systolic 128 mm[Hg] Sb Andino [facility] 03-31-2018 10:13-0400 Height 182.9 cm Sb [facility] 03-31-2018 10:13-0400 Pulse (Heart Rate) 71 /min Sb Andino [facility] 03-31-2018 10:13-0400 Weight 129.73 kg Sb [facility] 03-07-2018 14:16-0400 BMI (Body Mass Index) 37.89 kg/m2 [facility] 03-07-2018 14:16-0400 BP Diastolic 77 mm[Hg] [facility] 03-07-2018 14:16-0400 BP Systolic 127 mm[Hg] [facility] 03-07-2018 14:16-0400 Pulse (Heart Rate) 106 /min [facility] 03-07-2018 14:16-0400 Weight 126.73 kg Paul[facility] Encounters Encounter Date Encounter Type Care Provider Facility Start: 07-01-2025 ambulatory ANI [facility] Start: 06-30-2025 [facility] Start: 06-28-2025 End: 06-28-2025 Refill Merry Barba LPN [facility] Comment on above: Abscess of knee, rig ht (Primary Dx); History of total right knee replacement Start: 06-21-2025 End: 06-21-2025 Admission to same day surgery center Sofía Dukes MD Work Phone: [facility] Comment on above: Abscess of knee, rig ht (Primary Dx); History of total right knee replacement Start: 06-20-2025 End: 06-20-2025 Postop follow up visit related to original px Sofía Dukes MD Work Phone: [facility] Comment on above: Abscess of knee, rig ht (Primary Dx) Start: 06-20-2025 End: 06-20-[address] [facility] Start: 05-30-2025 End: 05-30-2025 Postop follow up visit related to original px Sofía Dukes MD Work Phone: [facility] Comment on above: Abscess of knee, rig ht (Primary Dx) Start: 05-30-2025 End: 05-30-[address] [facility] Start: 05-17-2025 ambulatory JACKSON AVITIA [facility] Start: 05-11-2025 End: 05-16-2025 Evaluation and management of inpatient Rosaline Araceli Arreaga DO Work Phone: [facility] Medical Observation Start: 05-09-2025 End: 05-09-2025 Office outpatient new 30 minutes Daniel Hammer MD Work Phone: [facility] Comment on above: Effusion of right kn ee (Primary Dx); Synovitis; Abscess of knee, right; History of total right knee replacement Start: 05-09-2025 End: 05-09-2025 Orders Only Merry Barba LPN [facility] Comment on above: Effusion of right kn ee (Primary Dx); Synovitis; Abscess of knee, right; History of total right knee replacement Start: 04-29-2025 End: 04-29-2025 Transcribe Orders Ani Worley CNP Work Phone: [facility] Comment on above: 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, unspecified laterality, unspecified ulceration site (HCC) (Primary Dx) Start: 04-02-2025 End: 04-05-2025 ambulatory [facility] Start: 04-02-2025 End: 04-05-2025 Evaluation and management of inpatient Maury Felipe Garcia DO Work Phone: [facility] Med Surg Oncology Start: 02-15-2025 End: 02-15-2025 Evaluation and management of inpatient [facility] Start: 02-11-2025 End: 02-21-2025 Evaluation and management of inpatient [facility] Start: 01-04-2025 End: 01-04-2025 Office outpatient visit 15 minutes Cecilia Gonzales DPM Work Phone: [facility] Wound Care Comment on above: Edema of both lower extremities [R60.0] (Primary Dx) Start: 01-04-2025 End: 01-04-2025 ambulatory [facility] Start: 01-02-2025 End: 01-02-2025 Office outpatient new 45 minutes Ani Worley [employer] Work Phone: [facility] Comment on above: Venous congestion (P rimary Dx); Edema of both lower extremities; Pulmonary hypertension (HCC); Skin ulcer of left lower leg, limited to breakdown of skin (HCC); Obesity (BMI 30-39.9) Start: 01-02-2025 End: 01-02-2025 ambulatory ANI WORLEY [facility] Start: 12-25-2024 End: 12-25-2024 Transcribe Orders Ani Worley [employer] Work Phone: [facility] Comment on above: PVD (peripheral vasc ular disease) (Primary Dx) Start: 12-24-2024 End: 12-24-2024 Documentation procedure Margot Gallegos RN [facility] Start: 12-21-2024 End: 12-21-2024 Office outpatient visit 15 minutes Cecilia Sabry Janet DPM Work Phone: [facility] Comment on above: Skin ulcer of planta r aspect of right foot with necrosis of muscle (HCC) (Primary Dx) Start: 12-21-2024 End: 12-21-2024 ambulatory [facility] Start: 12-20-2024 End: 12-20-2024 Transcribe Orders Ani Worley [employer] Work Phone: [facility] Comment on above: Disease of vein (Griselda gunderson Dx) Start: 11-23-2024 End: 11-23-2024 ambulatory [facility] Start: 11-23-2024 End: 11-23-2024 Office outpatient visit 15 minutes Cecilia Sabry Janet DPM Work Phone: [facility] Comment on above: Skin ulcer of right lower leg with fat layer exposed (HCC) (Primary Dx); Skin ulcer of left lower leg with fat layer exposed (HCC); Skin ulcer of plantar aspect of right foot with necrosis of muscle (HCC) Start: 11-16-2024 End: 11-16-2024 ambulatory [facility] Start: 11-09-2024 End: 11-09-2024 ambulatory [facility] Start: 10-31-2024 End: 10-31-2024 Transcribe Orders Ani Worley [employer] Work Phone: [facility] Comment on above: Muscle weakness (Griselda gunderson Dx) Start: 10-18-2024 End: 10-18-2024 Orders Only Shahrzad Hodges RN [facility] Comment on above: Compression fracture of T7 vertebra, initial encounter (HCC) (Primary Dx) Start: 10-15-2024 Critical care ill/in jured patient init 30-74 min Jose Lozano MD Work Phone: [facility] Start: 10-15-2024 End: 10-24-2024 Evaluation and management of inpatient Jose Lozano MD Work Phone: [facility] Med [facility]urg Oncology Start: 07-05-2024 ambulatory TAWANDA MORGAN [facility] Start: 07-02-2024 End: 07-05-2024 Evaluation and management of inpatient Jose Lozano MD Work Phone: [facility] Start: 04-27-2024 ambulatory [facility] Start: 04-09-2024 ambulatory [facility] Start: 03-02-2024 ambulatory [facility] Start: 01-17-2024 End: 01-17-2024 Office outpatient visit 25 minutes ALEXEY Radford DPM Work Phone: [facility] Comment on above: Midfoot collapse of right lower extremity (Primary Dx); Pes planus of both feet; Type 2 diabetes mellitus without complication, without long-term current use of insulin (HCC); Peripheral vascular disease (HCC); Arthritis of midfoot, unspecified laterality; Chronic venous hypertension, unspecified laterality Start: 12-22-2023 Transcribe Orders Clint Acuna [facility] Comment on above: Cellulitis, unspecif ied cellulitis site (Primary Dx) Encounter for screen ing colonoscopy (Primary Dx) Start: 10-10-2023 End: 06-18-2024 Evaluation and management of inpatient Reg Hartman [facility] Start: 09-19-2023 End: 09-19-2023 Emergency department patient visit FELIPE [facility] Start: 09-18-2023 End: 09-18-2023 [facility] Start: 09-09-2023 End: 09-09-2023 Postop follow up visit related to original px Cecilia Gonzales DPM Work Phone: [facility] Comment on above: Chronic ulcer of rig ht leg with fat layer exposed (HCC) (Primary Dx) Start: 09-02-2023 End: 09-02-2023 Postop follow up visit related to original px Cecilia Gonzales DPM Work Phone: [facility] Comment on above: Chronic ulcer of rig ht leg with fat layer exposed (HCC) (Primary Dx) Start: 08-26-2023 End: 08-26-2023 Postop follow up visit related to original px Cecilia Donna Gonzales DPM Work Phone: [facility] Comment on above: Chronic ulcer of rig ht leg with fat layer exposed (HCC) (Primary Dx) Start: 08-19-2023 End: 08-19-2023 Patient encounter procedure Cecilia Gonzales DPM Work Phone: [facility] Comment on above: Chronic ulcer of lef t leg with fat layer exposed (HCC) (Primary Dx); 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) Start: 07-29-2023 End: 08-11-2023 Evaluation and management of inpatient Kash Majano MD Work Phone: [facility] Med [facility]urg Oncology Start: 07-29-2023 End: 07-29-2023 Office outpatient visit 25 minutes Cecilia Gonzales DPM Work Phone: [facility] Comment on above: Abscess of right kne e (Primary Dx); Skin ulcer of right knee with fat layer exposed (HCC); Wound of right leg, subsequent encounter; Ulcer of left lower extremity with fat layer exposed (HCC) Start: 07-19-2023 Documentation procedure Daria dumas LPN [facility] Start: 07-15-2023 End: 07-15-2023 Office outpatient visit 15 minutes Cecilia Gonzales DPM Work Phone: [facility] Comment on above: Ulcer of left lower extremity with fat layer exposed (HCC) (Primary Dx); Wound of right leg, subsequent encounter Start: 07-08-2023 End: 07-08-2023 Patient encounter procedure Cecilia Gonzales DPM Work Phone: [facility] Comment on above: Ulcer of left lower extremity with fat layer exposed (HCC) (Primary Dx); Wound of right leg, subsequent encounter Start: 07-01-2023 End: 07-01-2023 Office outpatient visit 15 minutes Cecilia Gonzales DPM Work Phone: [facility] Comment on above: Ulcer of left lower extremity with fat layer exposed (HCC) (Primary Dx); Wound of right leg, subsequent encounter Start: 06-17-2023 End: 06-17-2023 Postop follow up visit related to original px [facility] Work Phone: [facility] Comment on above: Leg hematoma, right, sequela (Primary Dx); Leg hematoma, right, initial encounter; Ulcer of left lower extremity with fat layer exposed (HCC) Start: 06-11-2023 Documentation procedure Nathan Collnis MD Work Phone: [facility] Comment on above: Admission H&P Start: 05-30-2023 End: 05-31-2023 Emergency department patient visit [facility] Start: 05-24-2023 Documentation procedure Nathan Collins MD Work Phone: [facility] Comment on above: Admission H&P Start: 05-17-2023 End: 05-17-2023 Emergency department patient visit [facility] Start: 05-02-2023 ambulatory [facility] Start: 04-26-2023 ambulatory [facility] Start: 04-26-2023 End: 04-26-2023 Clinical Support Encounter Nathan Hayden MD Work Phone: [facility] Comment on above: Pressure ulcer of ri ght foot, stage 3 (Primary Dx); Venous stasis ulcer of right lower leg with edema of right lower leg; Lymphedema; Chronic venous insufficiency; Venous stasis ulcer of left lower leg with edema of left lower leg Start: 04-18-2023 ambulatory [facility] Start: 04-18-2023 Encounter for genera l adult medical examination without abnormal findings NATHAN HAYDEN [facility] Start: 04-18-2023 End: 04-18-2023 Office outpatient visit 15 minutes Nathan Hayden MD Work Phone: [facility] Infectious Disease Comment on above: Pancytopenia (Primar y Dx); Chronic hepatitis C without hepatic coma; Wound of right lower extremity, subsequent encounter; Left leg cellulitis; Alcoholic cirrhosis, unspecified whether ascites present; Obesity (BMI 30-39.9); Healthcare maintenance; Hepatitis B core antibody positive; Housing instability Start: 04-18-2023 End: 04-18-2023 Patient encounter status Nathan Hayden MD Work Phone: [facility] Start: 04-12-2023 ambulatory [facility] Start: 04-07-2023 [facility] Start: 04-07-2023 End: 04-07-2023 Office outpatient visit 15 minutes Nathan Hayden MD Work Phone: [facility]ious Disease Comment on above: Left leg cellulitis (Primary Dx); Close exposure to COVID-19 virus; Chronic hepatitis C without hepatic coma; Wound of right lower extremity, subsequent encounter; Pancytopenia; Alcoholic cirrhosis, unspecified whether ascites present; Healthcare maintenance; Obesity (BMI 30-39.9) Start: 04-07-2023 End: 04-07-2023 Patient encounter status Nathan Hayden MD Work Phone: [facility] Start: 03-31-2023 [facility] Start: 03-31-2023 End: 03-31-2023 Office outpatient visit 25 minutes Nathan Hayden MD Work Phone: [facility] Comment on above: Wound of right lower extremity, subsequent encounter (Primary Dx); Chronic hepatitis C without hepatic coma; Pancytopenia; MSSA (methicillin susceptible Staphylococcus aureus) infection; Alcoholic cirrhosis, unspecified whether ascites present; Left leg cellulitis Start: 03-23-2023 Documentation procedure Nathan Collins MD Work Phone: [facility] Comment on above: H&P Admission Start: 03-17-2023 End: 03-22-2023 Evaluation and management of inpatient [facility] Start: 03-16-2023 End: 03-22-2023 Evaluation and management of inpatient Power Nelson MD Work Phone: [facility] Comment on above: Bilateral cellulitis of lower leg Start: 03-16-2023 End: 03-16-2023 Emergency department patient visit Shai Leonard MD Work Phone: [facility] Emergency Department Start: 03-11-2023 ambulatory [facility] Start: 03-01-2023 ambulatory [facility] Start: 02-27-2023 End: 03-03-2023 Evaluation and management of inpatient [facility] [facility] Start: 02-26-2023 End: 02-27-2023 Evaluation and management of inpatient Shai Leonard MD Work Phone: [facility] Emergency Department Comment on above: Cellulitis and absce ss of left lower extremity Start: 02-21-2023 ambulatory ANI [facility] Start: 02-15-2023 ambulatory [place] AYALA [facility] Start: 02-15-2023 ambulatory ANIDAVID WORLEY [facility] Start: 02-15-2023 End: 02-15-2023 Office outpatient visit 25 minutes Nj Ayala SUSTAINABILITY COORDINATOR-ENVIRONMENTAL EMERGENCIES PLANNER Work Phone: [facility] Comment on above: Venous stasis ulcer of right lower leg with edema of right lower leg (Primary Dx); Pressure ulcer of right foot, stage 3; Chronic venous insufficiency; Lymphedema Start: 02-08-2023 [facility] Start: 02-08-2023 End: 02-08-2023 Office outpatient new 45 minutes Kristi Bryan DPM Work Phone: [facility] Comment on above: Mass of right foot ( Primary Dx); Bursitis of right foot; Subluxation of foot joint, right, initial encounter Start: 02-08-2023 ambulatory [facility] Start: 02-08-2023 ambulatory [facility] Start: 02-08-2023 End: 02-08-2023 Office outpatient visit 25 minutes Nj Ayala SUSTAINABILITY COORDINATOR-ENVIRONMENTAL EMERGENCIES PLANNER Work Phone: [facility] Comment on above: Venous stasis ulcer of right lower leg with edema of right lower leg (Primary Dx); Chronic venous insufficiency; Lymphedema; Pressure ulcer of right foot, stage 3; Foot mass, right Start: 02-01-2023 ambulatory [facility] Start: 01-26-2023 End: 01-26-2023 Office outpatient visit 15 minutes Nathan Hayden MD Work Phone: [facility] Disease Comment on above: Chronic hepatitis C without hepatic coma (Primary Dx); Hepatitis B core antibody positive; Pancytopenia; Healthcare maintenance; Cirrhosis of liver without ascites, unspecified hepatic cirrhosis type; Alcoholic cirrhosis, unspecified whether ascites present; Hand weakness; Wound of right lower extremity, subsequent encounter Start: 01-26-2023 End: 01-26-2023 Patient encounter status Nathan Hayden MD Work Phone: [facility] Infectious Disease Start: 01-25-2023 ambulatory [facility] Start: 01-25-2023 End: 01-25-2023 Office outpatient visit 25 minutes Nj Ayala SUSTAINABILITY COORDINATOR-ENVIRONMENTAL EMERGENCIES PLANNER Work Phone: [facility] Comment on above: Venous stasis ulcer of right lower leg with edema of right lower leg (Primary Dx); Chronic venous insufficiency; Lymphedema; Foot mass, right Start: 01-25-2023 ambulatory [facility] Sheryl AYALA [facility] Start: 01-18-2023 ambulatory [facility] Start: 01-18-2023 End: 01-18-2023 Office outpatient visit 25 minutes Nj Ayala SUSTAINABILITY COORDINATOR-ENVIRONMENTAL EMERGENCIES PLANNER Work Phone: [facility] Comment on above: Venous stasis ulcer of right lower leg with edema of right lower leg (Primary Dx); Chronic venous insufficiency; Lymphedema Start: 01-11-2023 ambulatory [facility]I [facility] Start: 01-11-2023 ambulatory [place] Jensen [facility] Start: 01-04-2023 ambulatory ANI [facility] Start: 12-28-2022 ambulatory [facility] Start: 12-28-2022 End: 12-28-2022 Office outpatient visit 25 minutes Ami Sheryl Hay SUSTAINABILITY COORDINATOR-ENVIRONMENTAL EMERGENCIES PLANNER Work Phone: [facility] Comment on above: Venous stasis ulcer of right lower leg with edema of right lower leg (Primary Dx); Chronic venous insufficiency; Lymphedema; Fungal dermatitis Start: 12-21-2022 ambulatory [facility] Start: 12-21-2022 End: 12-21-2022 Office outpatient visit 25 minutes Ami Sheryl Ayala SUSTAINABILITY COORDINATOR-ENVIRONMENTAL EMERGENCIES PLANNER Work Phone: [facility] Comment on above: Venous stasis ulcer of right lower leg with edema of right lower leg (Primary Dx); Chronic venous insufficiency; Lymphedema Start: 12-14-2022 ambulatory [facility] Start: 12-14-2022 ambulatory [place] Jensen [facility] Start: 12-14-2022 End: 12-14-2022 Office outpatient visit 25 minutes Ami Sheryl Ayala SUSTAINABILITY COORDINATOR-ENVIRONMENTAL EMERGENCIES PLANNER Work Phone: [facility] Comment on above: Venous stasis ulcer of right lower leg with edema of right lower leg (Primary Dx); Chronic venous insufficiency; Lymphedema Start: 12-08-2022 End: 12-08-2022 Subsequent hospital visit by physician Nathan Hayden MD Work Phone: [facility] CT Scan Comment on above: Arrived Start: 12-08-2022 End: 12-08-2022 Office outpatient visit 25 minutes Nathan Hayden MD Work Phone: [facility] Infectious Disease Comment on above: Chronic hepatitis C without hepatic coma (Primary Dx); Hepatitis B core antibody positive; Pancytopenia; Cirrhosis of liver without ascites, unspecified hepatic cirrhosis type; Healthcare maintenance; Obesity (BMI 30-39.9) Start: 12-08-2022 End: 12-08-2022 Patient encounter status Nathan Hayden MD Work Phone: [facility] Start: 12-07-2022 ambulatory ANIDAVID [facility] Start: 11-30-2022 ambulatory ANIDAVID [facility] Start: 11-30-2022 End: 11-30-2022 Clinical Support Encounter Nj Ayala SUSTAINABILITY COORDINATOR-ENVIRONMENTAL EMERGENCIES PLANNER Work Phone: [facility] Comment on above: Venous stasis ulcer of right lower leg with edema of right lower leg (Primary Dx); Chronic venous insufficiency Start: 11-29-2022 ambulatory ANI [facility] Start: 11-25-2022 ambulatory ANI [facility] Start: 11-25-2022 End: 11-25-2022 Office outpatient new 45 minutes Bridget Dahl MD Work Phone[facility] Comment on above: Pancytopenia (Primar y Dx); Thrombocytopenia; Leukopenia, unspecified type; Microcytic hypochromic anemia; Chronic hepatitis C without hepatic coma; 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; Hepatosplenomegaly Start: 11-23-2022 ambulatory ANI [facility] Start: 11-23-2022 End: 11-23-2022 Office outpatient visit 25 minutes Nj Ayala SUSTAINABILITY COORDINATOR-ENVIRONMENTAL EMERGENCIES PLANNER Work Phone: [facility] Comment on above: Venous stasis ulcer of right lower leg with edema of right lower leg (Primary Dx); Chronic venous insufficiency; Lymphedema Start: 11-16-2022 ambulatory ANIDAVID [facility] Start: 11-16-2022 End: 11-16-2022 Office outpatient visit 25 minutes Nj Ayala SUSTAINABILITY COORDINATOR-ENVIRONMENTAL EMERGENCIES PLANNER Work Phone: [facility] Comment on above: Venous stasis ulcer of right lower leg with edema of right lower leg (Primary Dx); Chronic venous insufficiency; Lymphedema Start: 11-11-2022 ambulatory [facility]IDAVID [facility] Start: 11-09-2022 ambulatory [facility]AVID [facility] Start: 11-03-2022 End: 11-03-2022 Office outpatient visit 25 minutes Nathan Hayden MD Work Phone: [facility] Infectious [facility] Comment on above: Wound of right lower extremity, subsequent encounter (Primary Dx); Chronic hepatitis C without hepatic coma; Hepatitis B core antibody positive; Pancytopenia; Obesity (BMI 30-39.9); Healthcare maintenance; Cirrhosis of liver without ascites, unspecified hepatic cirrhosis type Start: 11-03-2022 End: 11-03-2022 Patient encounter status Nathan Hayden MD Work Phone: [facility] Infectious Disease Start: 10-21-2022 End: 10-21-2022 Subsequent hospital visit by physician Antony Suarez DO Work Phone: [facility] Start: 09-29-2022 End: 09-29-2022 Office outpatient visit 25 minutes Nathan Hayden MD Work Phone: [facility] Comment on above: Chronic hepatitis C without hepatic coma (Primary Dx); Hepatitis B core antibody positive; Pancytopenia; Healthcare maintenance; Obesity (BMI 30-39.9); Cirrhosis of liver without ascites, unspecified hepatic cirrhosis type; Wound of right lower extremity, subsequent encounter Start: 09-29-2022 End: 09-29-2022 Patient encounter status Nathan Hayden MD Work Phone: [facility] Infectious [facility] Start: 08-26-2022 End: 08-26-2022 Office outpatient new 45 minutes Antony Suarez DO Work Phone: [facility] Comment on above: Cirrhosis of liver w ithout ascites, unspecified hepatic cirrhosis type (Primary Dx); Chronic hepatitis C without hepatic coma Start: 08-25-2022 End: 08-25-2022 Office outpatient visit 25 minutes Nathan Hayden MD Work Phone: [facility] Comment on above: Chronic hepatitis C without hepatic coma (Primary Dx); Hepatitis B core antibody positive; Healthcare maintenance; Alcoholic cirrhosis, unspecified whether ascites present; Pancytopenia; Obesity (BMI 30-39.9) Start: 08-25-2022 End: 08-25-2022 Patient encounter status Nathan Hayden MD Work Phone: [facility] Infectious Disease Start: 07-07-2022 End: 07-07-2022 Office outpatient visit 15 minutes Nathan Hayden MD Work Phone: [facility] Infectious Disease Comment on above: Chronic hepatitis C without hepatic coma (Primary Dx); Hepatitis B core antibody positive; Healthcare maintenance; Obesity (BMI 30-39.9); Pancytopenia; Alcoholic cirrhosis, unspecified whether ascites present Start: 07-07-2022 End: 07-07-2022 Patient encounter status Nathan Hayden MD Work Phone: [facility] Infectious Disease Start: 06-07-2022 End: 06-07-2022 Office outpatient visit 15 minutes Pattie Roman SUSTAINABILITY COORDINATOR-ENVIRONMENTAL EMERGENCIES PLANNER Work Phone: [facility] Comment on above: Referral of patient (Primary Dx); Chronic viral hepatitis B without delta agent and 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; Chronic hepatitis C without hepatic coma Start: 05-12-2022 End: 05-12-2022 Emergency department patient visit Ani Meir SUSTAINABILITY COORDINATOR-ENVIRONMENTAL EMERGENCIES PLANNER Work Phone: [facility] Emergency Department Start: 05-03-2022 End: 05-03-2022 Emergency department patient visit [facility] Start: 05-03-2022 End: 05-03-2022 Emergency department patient visit Zhao Abraham MD Work Phone: [facility] ED Comment on above: Ulcer of right foot, unspecified ulcer stage (HCC) (Primary Dx); Lymphedema of both lower extremities Start: 04-20-2022 End: 04-21-2022 Evaluation and management of inpatient Carolina Solis MD Work Phone: [facility] Start: 03-06-2022 End: 03-07-2022 Emergency department patient visit Nuno Cantor MD Work Phone: [facility] Emergency Department Start: 11-12-2021 End: 11-15-2021 Evaluation and management of inpatient Nuno Cantor MD Work Phone: [facility] ICU Comment on above: Hypotension Start: 10-07-2021 End: 10-07-2021 Emergency department patient visit Ani Worley SUSTAINABILITY COORDINATOR-ENVIRONMENTAL EMERGENCIES PLANNER Work Phone: [facility] Emergency Department Start: 06-03-2021 End: 06-04-2021 Evaluation and management of inpatient BLANCA PINEDA MATEO [facility] Start: 04-14-2021 End: 04-14-2021 Office outpatient new 45 minutes Felipe Molina DPM Work Phone: [facility] Podiatry Comment on above: Acquired varus defor mity of left foot (Primary Dx); Hallux rigidus, acquired, left; Fracture of second toe, left, open, with malunion, subsequent encounter Start: 04-04-2021 End: 04-04-2021 Emergency department patient visit Nuno Cantor MD Work Phone: [facility] Emergency Department Start: 03-30-2021 End: 03-30-2021 Emergency department patient visit Sofía Devine MD Work Phone: [facility] Emergency Department Start: 02-02-2021 End: 02-02-2021 Emergency department patient visit Saulo Joseph MD Work Phone: [facility] Emergency Department Start: 01-15-2021 End: 01-15-2021 Emergency department patient visit DIEGO GUPTA [facility] Start: 01-15-2021 End: 01-15-2021 Emergency department patient visit Diego Gupta MD Work Phone: [facility] ED Start: 12-03-2020 End: 12-04-2020 Evaluation and management of inpatient Maury Garcia Work Phone: [facility] Start: 11-01-2020 End: 11-01-2020 Emergency department patient visit Christopher Ng Work Phone: [facility] Emergency Department Start: 10-29-2020 End: 10-29-2020 Orders Only Mona Jung Work Phone: [facility] Start: 09-03-2020 End: 09-03-2020 Office outpatient visit 25 minutes Palmer Givens Work Phone: [facility] Comment on above: Pancytopenia (Primar y Dx); Atrial fibrillation, unspecified type; Essential hypertension; Chronic obstructive pulmonary disease, unspecified COPD type; Chronic pain syndrome Start: 08-01-2020 End: 08-01-2020 Emergency department patient visit Saulo Joseph Work Phone: [facility] Emergency Department Comment on above: Suspected COVID-19 v irus infection (Primary Dx); Asthma with acute exacerbation, unspecified asthma severity, unspecified whether persistent; Morbid obesity (HCC); H/O CHF; Paroxysmal atrial fibrillation (HCC); Medication refill Start: 07-28-2020 End: 07-28-2020 Documentation procedure Judith Cruz [facility] Start: 07-14-2020 End: 07-14-2020 Office outpatient visit 15 minutes Palmer Givens Work Phone: [facility] Comment on above: Chronic obstructive pulmonary disease with acute exacerbation (Primary Dx); Acute respiratory failure, unspecified whether with hypoxia or hypercapnia; Atrial fibrillation, unspecified type; Essential hypertension; Anemia, unspecified type; Thrombocytopenia; Elevated troponin; Elevated brain natriuretic peptide (BNP) level; Marijuana use Start: 07-11-2020 End: 07-11-2020 Documentation procedure Carina Green Work Phone: [facility] Critical Care Start: 07-08-2020 End: 07-09-2020 Evaluation and management of inpatient VENANCIO QUIROS [facility] Start: 07-07-2020 End: 07-09-2020 Evaluation and management of inpatient Marisolreynaldo Vernon Jhon Work Phone: [facility] Surgical [facility]mediate Comment on above: Acute respiratory fa ilure, unspecified whether with hypoxia or hypercapnia (HCC) (Primary Dx); COPD exacerbation (HCC); Cannabis abuse; Acute exacerbation of chronic obstructive pulmonary disease (COPD) (HCC) Start: 06-30-2020 End: 06-30-2020 Office outpatient visit 15 minutes Sb Zena Exten Work Phone: [facility] Comment on above: Acquired pes planova lgus of right foot (Primary Dx); Arthritis of right foot Start: 04-22-2020 End: 04-22-2020 Subsequent hospital visit by physician Sb Andino Work Phone: [facility] Comment on above: Pain Start: 04-22-2020 End: 04-22-2020 Office outpatient visit 15 minutes Sbkendra Andino Work Phone: [facility] Comment on above: Toe dislocation, lef t, subsequent encounter (Primary Dx); Arthritis of first metatarsophalangeal (MTP) joint of left foot; Acquired pes planovalgus of right foot; Arthritis of right foot Start: 01-30-2020 End: 01-30-2020 Emergency department patient visit Radames Galvin Work Phone: [facility] Emergency Department Start: 01-25-2020 End: 01-25-2020 Home visit Jignesh Gilbert [facility] Comment on above: PT OASIS DISCHARGE SN HH NON-OASIS/DISC IPLINE DC Start: 01-24-2020 End: 01-24-2020 Home visit Jignesh Gilbert [facility] Comment on above: PT NON-OASIS/DISCIPL INE DISCHARGE Start: 01-23-2020 End: 01-23-2020 Postop follow up visit related to original px Sofía March Blayne Work Phone: [facility] Comment on above: Status post total ri ght knee replacement (Primary Dx); Primary osteoarthritis of right knee Start: 01-22-2020 End: 01-22-2020 Documentation procedure Daria Dumont [facility] Start: 01-22-2020 End: 01-22-2020 Home visit Rosaline Barba [facility] Comment on above: GLASS CUTTER HELPER HH MISSED VISIT Start: 01-18-2020 End: 01-18-2020 Home visit Leandro Sanchez [facility] Comment on above: FLAKEBOARD LINE TENDER ROUTINE VISIT SN HH ROUTINE VISIT Start: 01-17-2020 End: 01-17-2020 Home visit Leandro Sanchez [facility] Comment on above: FLAKEBOARD LINE TENDER ROUTINE VISIT Start: 01-16-2020 End: 01-16-2020 Documentation procedure Merry Barba [facility] Start: 01-15-2020 End: 01-15-2020 Documentation procedure Daria Dumont [facility] Start: 01-15-2020 End: 01-15-2020 Home visit Pinky Brown [facility] Comment on above: SN HH ROUTINE VISIT FLAKEBOARD LINE TENDER MISSED VISIT Start: 01-14-2020 End: 01-14-2020 Home visit Rosaline Barba [facility] Comment on above: TELEPHONE ENCOUNTER Start: 01-13-2020 End: 01-13-2020 Home visit Harris Vargas [facility] Comment on above: SN HH PRN VISIT Start: 01-11-2020 End: 01-11-2020 Documentation procedure Daria Dumont [facility] Start: 01-11-2020 End: 01-11-2020 Home visit Jessenia Peñacullen [facility] Comment on above: 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 Start: 01-10-2020 End: 01-10-2020 Home visit Leandro Sandra Sanchez [facility] Comment on above: FLAKEBOARD LINE TENDER ROUTINE VISIT Start: 01-09-2020 End: 01-09-2020 Home visit Jignesh Gilbert [facility] Comment on above: PT INITIAL EVALUATIO N SN HH OASIS START OF CARE Start: 01-08-2020 End: 01-08-2020 Admission to [facility] Start: 01-08-2020 End: 01-25-2020 Patient encounter procedure SOFÍA DUKES [facility] Start: 01-08-2020 End: 01-08-2020 Subsequent hospital visit by physician Sofía Dukes Work Phone: [facility] Med Surg Orthopedics Comment on above: S/P total knee arthr oplasty, right (Primary Dx); Primary osteoarthritis of right knee; Primary osteoarthritis of right knee Start: 01-04-2020 End: 01-04-2020 Office outpatient new 60 minutes Sofía Dukes Work Phone: [facility] Comment on above: Essential hypertensi on (Primary Dx); Primary osteoarthritis of right knee Start: 01-03-2020 End: 01-03-2020 Subsequent hospital visit by physician Sofía Dukes Work Phone: [facility] CT Scan Comment on above: Primary osteoarthrit is of right knee Start: 11-06-2019 End: 11-07-2019 Evaluation and management of inpatient [facility] Start: 11-06-2019 End: 11-07-2019 Evaluation and management of inpatient Anya Burton Chon Work Phone: [facility] Comment on above: Pneumonia of left lo wer lobe due to infectious organism (HCC) (Primary Dx); Influenza A; COPD exacerbation (HCC) Start: 10-30-2019 End: 10-30-2019 Office outpatient visit 15 minutes Palmer Givens Work Phone: [facility] Comment on above: Essential hypertensi on (Primary Dx); SOB (shortness of breath) on exertion; Leg edema Start: 10-26-2019 End: 10-26-2019 Patient encounter procedure Lena Hill Work Phone: [facility] Comment on above: Tricompartment osteo arthritis of right knee Start: 09-21-2019 End: 09-21-2019 Office outpatient visit 15 minutes Lena Hill Work Phone: [facility] [place] Comment on above: Tricompartment osteo arthritis of right knee (Primary Dx) Start: 05-28-2019 End: 05-28-2019 Telephone encounter Palmer Givens Work Phone: [facility] Comment on above: Medication Managemen t Start: 05-26-2019 End: 05-26-2019 Refill Palmer Givens Work Phone: [facility] Start: 04-30-2019 End: 04-30-2019 Telephone encounter Palmer Givens Work Phone: [facility] Comment on above: Medication Managemen t Start: 04-27-2019 End: 04-27-2019 Refill Palmer Givens Work Phone: [facility] Start: 04-05-2019 End: 04-05-2019 Emergency department patient visit Bjorn Sin Work Phone: [facility] Emergency Department Start: 04-03-2019 End: 04-03-2019 Emergency department patient visit Kinsey Ignacio Work Phone: [facility] Emergency Department Comment on above: Acute exacerbation o f chronic obstructive pulmonary disease (COPD) (HCC) (Primary Dx) Start: 03-06-2019 End: 03-06-2019 Outside Orders Historical Provider [facility] Start: 03-04-2019 End: 03-04-2019 Emergency department patient visit [facility] Start: 03-01-2019 End: 03-01-2019 Outside Orders Prashanth Armenta Work Phone: [facility] Start: 02-19-2019 End: 02-19-2019 Telephone encounter Palmer Givens Work Phone: [facility] Comment on above: Medication Managemen t Start: 02-07-2019 End: 02-07-2019 Telephone encounter Palmer Givens Work Phone: [facility] Comment on above: Medication Managemen t Start: 02-03-2019 Emergency department patient visit [facility] Start: 11-24-2018 End: 11-24-2018 Telephone encounter Palmer Givens Work Phone: [facility] Comment on above: Medication Managemen t Start: 11-06-2018 End: 11-06-2018 Office outpatient visit 15 minutes Palmer Givens Work Phone: [facility] Comment on above: Chronic obstructive pulmonary disease, unspecified COPD type (Primary Dx) Start: 10-06-2018 End: 10-06-2018 Patient encounter procedure Sb Andino Work Phone: [facility] Start: 10-06-2018 End: 10-06-2018 Office outpatient visit 15 minutes Sb Andino Work Phone: [facility] Comment on above: Toe dislocation, lef t, subsequent encounter (Primary Dx); Arthritis of first metatarsophalangeal (MTP) joint of left foot; Acquired pes planovalgus of right foot; Arthritis of right foot Start: 10-05-2018 End: 10-05-2018 Documentation procedure Monica Rachel JeffJimmy [facility] Start: 09-15-2018 End: 09-15-2018 Office outpatient visit 15 minutes Sbkendra Wheatleyrachel Andino Work Phone: [facility] Comment on above: Toe dislocation, lef t, subsequent encounter (Primary Dx); Arthritis of first metatarsophalangeal (MTP) joint of left foot Start: 08-01-2018 End: 08-01-2018 Patient encounter procedure Monica Condon [facility] Start: 07-31-2018 End: 07-31-2018 Patient encounter procedure Rashaadliz Alford Liriano Work Phone: [facility] Comment on above: Knee pain Start: 07-31-2018 End: 07-31-2018 Office outpatient new 20 minutes Rashaad Alford Liriano Work Phone: [facility] Comment on above: Toe dislocation, lef t, subsequent encounter; Osteoarthritis of right knee, unspecified osteoarthritis type; Acquired pes planovalgus of right foot Start: 07-20-2018 Patient encounter procedure Sb Andino Facility:[facility] Start: 07-20-2018 End: 07-20-2018 Patient encounter procedure Sb Zenarachel Andino Work Phone: [facility] Start: 07-10-2018 End: 07-10-2018 Patient encounter Monica Rachel Taurus [facility] Start: 06-03-2018 Patient encounter procedure Memo Brar Facility:[facility] Start: 06-03-2018 End: 06-03-2018 Patient encounter Memo Brar Work Phone: [facility] Start: 05-31-2018 Patient encounter procedure Sb Andino Facility:[facility] Start: 05-15-2018 Patient encounter procedure Sb Andino Facility:[facility] Start: 05-15-2018 End: 05-15-2018 Patient encounter bS Andino Work Phone: [facility] Start: 05-12-2018 Patient encounter procedure Memo Brar Facility:[facility] Start: 05-12-2018 End: 05-12-2018 Patient encounter Memo Mathur Maykel Work Phone: [facility] Start: 05-06-2018 Patient encounter procedure Memo Ramos Maykel Facility:[facility] Start: 05-06-2018 End: 05-06-2018 Patient encounter Memo Mathur Brar Work Phone: [facility] Start: 04-20-2018 Patient encounter procedure Sb Luther Exten Facility:[facility] Start: 04-20-2018 End: 04-20-2018 Patient encounter Sb Andino Work Phone: [facility] Start: 04-13-2018 Patient encounter procedure Sb Luther Exten Facility:[facility] Start: 04-08-2018 Patient encounter procedure Memo Rachel Maykel Facility:[facility] Start: 04-08-2018 End: 04-08-2018 Patient encounter Memo Mathur Maykel Work Phone: [facility] Start: 04-04-2018 Patient encounter Monica Mcdonough [facility] Start: 03-31-2018 Patient encounter procedure Sb Luther Exten Facility:[facility] Start: 03-31-2018 End: 03-31-2018 Patient encounter Sb Freitas Exten Work Phone: [facility] Start: 03-31-2018 End: 03-31-2018 Office consultation new/estab patient 40 min Paulino Rodrigues Work Phone: [facility] Start: 03-11-2018 Patient encounter procedure Memo Brar Facility:[facility] Start: 03-08-2018 Patient encounter procedure Paulino Rodrigues Facility:[facility] Start: 03-07-2018 Patient encounter procedure Paulino Rodrigues Facility:[facility] Start: 03-07-2018 End: 03-07-2018 Patient encounter Paulino Rodrigues Work Phone: [facility] Start: 03-07-2018 End: 03-07-2018 Office outpatient new 30 minutes Palmer Givens Work Phone: [facility] Start: 02-11-2018 Patient encounter procedure Memo Brar Facility:[facility] Start: 02-11-2018 End: 02-11-2018 Ambulatory Memo Brar Work Phone: [facility] Start: 01-14-2018 Patient encounter procedure Memo Brar Facility:[facility] Start: 01-14-2018 End: 01-14-2018 Ambulatory Memo Brar Work Phone: [facility] Start: 12-30-2017 Patient encounter procedure Memo Brar Facility:[facility] Start: 12-30-2017 End: 12-30-2017 Ambulatory Memo Brar Work Phone: [facility] Start: 08-06-2017 End: 08-06-2017 Emergency department patient visit Riaz Lopez Facility:[facility] Start: 05-05-2017 End: 05-05-2017 Ambulatory Coleen BrionesFrancesca Neal Work Phone: [facility] Procedures Date Procedure Procedure Detail Performing Clinician Start: 05-16-2025 Glucose measurement Carmen Charles MD Work Phone: Start: 05-16-2025 Glucose measurement [facility] Work Phone: Start: 05-16-2025 Basic metabolic panel calcium total Dee Deborah Deyvi ENVIRONMENTAL EMERGENCIES PLANNER Work Phone: Start: 05-15-2025 Glucose measurement [facility] Work Phone: Start: 05-15-2025 Glucose measurement [facility] Work Phone: Start: 05-15-2025 Glucose measurement [facility] Work Phone: Start: 05-15-2025 Glucose measurement [facility] Work Phone: Start: 05-15-2025 Basic metabolic panel calcium total Dee Deborah Boydymour ENVIRONMENTAL EMERGENCIES PLANNER Work Phone: Start: 05-15-2025 Drug screen quantitative vancomycin Sorin Simons RPh,PharmD Start: 05-14-2025 Glucose measurement [facility] Work Phone: Start: 05-14-2025 Glucose measurement [facility] Work Phone: Start: 05-14-2025 Glucose measurement [facility] Work Phone: Start: 05-14-2025 Glucose measurement [facility] Work Phone: Start: 05-14-2025 Basic metabolic panel calcium total Dee Carnes ENVIRONMENTAL EMERGENCIES PLANNER Work Phone: Start: 05-13-2025 Glucose measurement [facility] Work Phone: Start: 05-13-2025 Glucose measurement [facility] Work Phone: Start: 05-13-2025 End: 05-13-2025 Cul bact xcpt urine blood/stool aerobic isol Sofía Dukes MD Work Phone: Start: 05-13-2025 Immunoassay analyte qual/semiqual single step Sofía Dukes MD Work Phone: Start: 05-13-2025 End: 05-13-2025 I&d deep absc bursa/hematoma thigh/knee region Sofía Dukes MD Work Phone: Start: 05-13-2025 Glucose measurement [facility] Work Phone: Start: 05-13-2025 Glucose measurement [facility] Work Phone: Start: 05-13-2025 Basic metabolic panel calcium total Dee Carnes ENVIRONMENTAL EMERGENCIES PLANNER Work Phone: Start: 05-13-2025 Drug screen quantitative vancomycin Olivia Caicedo ENVIRONMENTAL EMERGENCIES PLANNER Work Phone: Start: 05-12-2025 Glucose measurement [facility] Work Phone: Start: 05-12-2025 Glucose measurement [facility] Work Phone: Start: 05-12-2025 Drug tst prsmv instrmnt chem analyzers pr date Dee Carnes ENVIRONMENTAL EMERGENCIES PLANNER Work Phone: Start: 05-12-2025 Iadna s aureus methicillin resist amp probe tq Dee Carnes ENVIRONMENTAL EMERGENCIES PLANNER Work Phone: Start: 05-12-2025 Glucose measurement Generic [facility] Work Phone: Start: 05-12-2025 Glucose measurement Generic [facility] Work Phone: Start: 05-12-2025 Basic metabolic panel calcium total Dee Carnes ENVIRONMENTAL EMERGENCIES PLANNER Work Phone: Start: 05-12-2025 Complete blood count with white cell differential, manual Dee Carnes ENVIRONMENTAL EMERGENCIES PLANNER Work Phone: Start: 05-12-2025 Cul bact xcpt urine blood/stool aerobic isol Camron Goyal PA-C Work Phone: Start: 05-11-2025 Comprehensive metabolic panel Camron Goyal PA-C Work Phone: Start: 05-11-2025 Complete blood count with white cell differential, manual Camron Goyal PA-C Work Phone: Start: 05-11-2025 Red blood cell morphology Camron Rothmanysse parag Goyal PA-C Work Phone: Start: 05-11-2025 Radiologic examination knee 1/2 views Camron Goyal PA-C Work Phone: Start: 05-11-2025 End: 05-11-2025 Assay of lactate Camron dean PA-C Work Phone: Start: 05-11-2025 Culture bacterial blood aerobic w/id isolates Camron Goyal PA-C Work Phone: Start: 04-05-2025 Radiologic exam chest single view Kanchan Jacobs MD Work Phone: Start: 04-05-2025 Basic metabolic panel calcium total Shanae Nunez MD Work Phone: Start: 04-05-2025 Complete blood count with white cell differential, manual Shanae Nunez MD Work Phone: Start: 04-05-2025 Red blood cell morphology Shanae Nunez MD Work Phone: Start: 04-04-2025 Basic metabolic panel calcium total Kj Cox ENVIRONMENTAL EMERGENCIES PLANNER Work Phone: Start: 04-04-2025 Complete blood count with white cell differential, manual Kj Cox ENVIRONMENTAL EMERGENCIES PLANNER Work Phone: Start: 04-04-2025 Gases blood ph direct edilma xcpt pulse oximitry Kanchan Jacobs MD Work Phone: Start: 04-04-2025 Glucose measurement Shanae Moeller Work Phone: Start: 04-02-2025 EMS RUN SHEET Generic Ems Provider Start: 04-02-2025 Assay of ammonia Shanae Moeller Work Phone: Start: 04-02-2025 Radiologic examination knee 1/2 views Maury Garcia DO Work Phone: Start: 04-02-2025 End: 04-02-2025 Basic metabolic panel calcium total Maury Garcia DO Work Phone: Start: 04-02-2025 C-reactive protein Maury navarro DO Work Phone: Start: 04-02-2025 Radiologic exam chest single view Maury Garcia DO Work Phone: Start: 04-02-2025 COMBS TOP Maury navarro DO Work Phone: Start: 04-02-2025 RAINBOW DRAW Maury navarro DO Work Phone: Start: 04-02-2025 Complete blood count with white cell differential, manual Maury Garcia DO Work Phone: Start: 04-02-2025 Culture bacterial blood aerobic w/id isolates Maury Garcia DO Work Phone: Start: 04-02-2025 Red blood cell morphology Maury barlow [place] DO Work Phone: Start: 04-02-2025 Sedimentation rate rbc automated Maury Ojeda Radha DO Work Phone: Start: 04-02-2025 EMS RUN SHEET Generic Ems Provider Start: 12-21-2024 Debridement subcutaneous tissue 20 sq cm/< Cecilia Sabry Janet DPM Work Phone: Start: 11-23-2024 Appl mltlayr grant leg below knee w/ankle foot Cecilia Sabry Janet DPM Work Phone: Start: 10-24-2024 Blood count complete auto&auto difrntl wbc Blanca Kerns MD Work Phone: Start: 10-24-2024 Red blood cell morphology Blanca Kerns MD Work Phone: Start: 10-23-2024 Blood count complete auto&auto difrntl wbc Blanca Kerns MD Work Phone: Start: 10-23-2024 Red blood cell morphology Blanca Kerns MD Work Phone: Start: 10-22-2024 Basic metabolic panel calcium total Arben Parrish MD Work Phone: Start: 10-21-2024 Blood count complete auto&auto difrntl wbc Blanca Kerns MD Work Phone: Start: 10-21-2024 Red blood cell morphology Blanca Kerns MD Work Phone: Start: 10-20-2024 Blood count complete auto&auto difrntl wbc Blanca Kerns MD Work Phone: Start: 10-20-2024 Red blood cell morphology Blanca Kerns MD Work Phone: Start: 10-19-2024 Blood count complete auto&auto difrntl wbc Blanca Kerns MD Work Phone: Start: 10-19-2024 Red blood cell morphology Blanca Kerns MD Work Phone: Start: 10-18-2024 Cul bact xcpt urine blood/stool aerobic isol Quyen Franco ENVIRONMENTAL EMERGENCIES PLANNER Work Phone: Start: 10-18-2024 Blood count complete auto&auto difrntl wbc Blanca Kerns MD Work Phone: Start: 10-18-2024 C-reactive protein Quyen Franco ENVIRONMENTAL EMERGENCIES PLANNER Work Phone: Start: 10-17-2024 Radex spine thoracic 2 views Antonietta Eagle fierro PA-C Work Phone: Start: 10-17-2024 Non-invas physiologic std extremity art 2 level Quyen Franco ENVIRONMENTAL EMERGENCIES PLANNER Work Phone: Start: 10-17-2024 Mri lower extrem oth/thn jt w/o contr matrl Quyen Franco ENVIRONMENTAL EMERGENCIES PLANNER Work Phone: Start: 10-17-2024 Hemoglobin glycosylated a1c Quyen Do mka ENVIRONMENTAL EMERGENCIES PLANNER Work Phone: Start: 10-16-2024 Mri spinal canal thoracic w/o contrast matrl Branden Cummings ENVIRONMENTAL EMERGENCIES PLANNER Work Phone: Start: 10-16-2024 Basic metabolic panel calcium total Jumana Fink ENVIRONMENTAL EMERGENCIES PLANNER Work Phone: Start: 10-15-2024 25 hydroxy includes fractions if performed Jumana Fink ENVIRONMENTAL EMERGENCIES PLANNER Work Phone: Start: 10-15-2024 Electrocardiogram Jose Lozano MD Work Phone: Start: 10-15-2024 CT Thoracic and lumbar spine WO contrast Jose Lozano MD Work Phone: Start: 10-15-2024 Ct angiography chest w/contrast/noncontrast Jose Lozano MD Work Phone: Start: 10-15-2024 Culture bacterial blood aerobic w/id isolates Jose Lozano MD Work Phone: Start: 10-15-2024 End: 10-15-2024 Radiologic examination tibia & fibula 2 views Jose Lozano MD Work Phone: Start: 10-15-2024 Radiologic exam chest single view Jose Lozano MD Work Phone: Start: 10-15-2024 Comprehensive metabolic panel Jose teresa MD Work Phone: Start: 10-15-2024 End: 10-15-2024 Culture bacterial blood aerobic w/id isolates Jose Lozano MD Work Phone: Start: 10-15-2024 OBTAIN VENOUS BLOOD GASES AND PERFORM Jose Lozano MD Work Phone: Start: 10-15-2024 Red blood cell morphology Jose Burton D Work Phone: Start: 10-15-2024 Gases blood ph direct edilma xcpt pulse oximitry Jose Lozano MD Work Phone: Start: 10-15-2024 Influenza virus A and B RNA and SARS-CoV-2 (COVID-19) N gene panel - Respiratory specimen by HERMAN with probe detection Jose Lozano MD Work Phone: Start: 10-15-2024 Ecg routine ecg w/least 12 lds w/i&r Jose Lozano MD Work Phone: Start: 07-05-2024 Cell count misc body fluids w/differential count Sofía Dukes MD Work Phone: Start: 07-04-2024 Us abdominal real time w/image limited Kinza Garrett MD Work Phone: Start: 07-03-2024 Antibody blastomyces Kinza ramsay MD Work Phone: Start: 07-03-2024 Iaad ia mult step method nos each organism Kinza Garrett MD Work Phone: Start: 07-03-2024 Comprehensive metabolic panel Christian Porter MD Work Phone: Start: 07-03-2024 Glucose measurement Generic [facility] Work Phone: Start: 07-02-2024 Radiologic examination knee 1/2 views Jose Lozano MD Work Phone: Start: 07-02-2024 Ct angiography chest w/contrast/noncontrast Jose Lozano MD Work Phone: Start: 07-02-2024 Electrocardiogram Jose Lozano MD Work Phone: Start: 07-02-2024 End: 07-02-2024 Radiologic examination tibia & fibula 2 views Jose Lozano MD Work Phone: Start: 07-02-2024 Dup-scan xtr veins complete bilateral study Jose Lozano MD Work Phone: Start: 07-02-2024 Ecg routine ecg w/least 12 lds w/i&r Jose Lozano MD Work Phone: Start: 07-02-2024 Radiologic exam chest single view Jose Lozano MD Work Phone: Start: 07-02-2024 COBMS TOP Jose Lozano MD Work Phone: Start: 07-02-2024 LIGHT GREEN TOP Jose Lozano MD Work Phone: Start: 07-02-2024 RAINBOW DRAW Jose Lozano MD Work Phone: Start: 07-02-2024 Urnls dip stick/tablet reagent auto microscopy Jose Lozano MD Work Phone: Start: 07-02-2024 C-reactive protein Jose Lozano MD Work Phone: Start: 07-02-2024 End: 07-02-2024 Comprehensive metabolic panel Jose teresa MD Work Phone: Start: 10-10-[address] Reg gary Start: 08-19-2023 Debridement subcutaneous tissue 20 sq cm/< Cecilia Donna Gonzales DPM Work Phone: Start: 08-11-2023 Glucose measurement Christian nazario MD Work Phone: Start: 08-11-2023 Glucose measurement [facility] Work Phone: Start: 08-11-2023 Glucose measurement [facility] Work Phone: Start: 08-10-2023 Blood occult fecal hgb deter ia qual feces 1-3 Harper Arango MD Work Phone: Start: 08-10-2023 Glucose measurement [facility] Work Phone: Start: 08-10-2023 Comprehensive metabolic panel Ajit davis DO Work Phone: Start: 08-10-2023 Red blood cell morphology Ajit Rader DO Work Phone: Start: 08-08-2023 Glucose measurement [facility] Work Phone: Start: 08-08-2023 Glucose measurement [facility] Work Phone: Start: 08-08-2023 Glucose measurement [facility] Work Phone: Start: 08-07-2023 Glucose measurement [facility] Work Phone: Start: 08-07-2023 Glucose measurement [facility] Work Phone: Start: 08-06-2023 Us abdominal real time w/image documentation Harper Arango MD Work Phone: Start: 08-06-2023 Glucose measurement [facility] Work Phone: Start: 08-06-2023 Glucose measurement [facility] Work Phone: Start: 08-06-2023 Cul bact xcpt urine blood/stool aerobic isol Yoly Pizarro DPM Work Phone: Start: 08-06-2023 Glucose measurement [facility] Work Phone: Start: 08-06-2023 Comprehensive metabolic panel Ajit Ramirezi s DO Work Phone: Start: 08-06-2023 Red blood cell morphology Ajit Rader DO Work Phone: Start: 08-05-2023 Glucose measurement [facility] Work Phone: Start: 08-05-2023 End: 08-05-2023 SKIN GRAFT SPLIT THICKNESS LOWER EXTREMITY Cecilia Donna Gonzales DPM Work Phone: Start: 08-05-2023 Glucose measurement [facility] Work Phone: Start: 08-05-2023 Comprehensive metabolic panel Ajit Avendano s DO Work Phone: Start: 08-05-2023 Red blood cell morphology Ajit Rader DO Work Phone: Start: 08-04-2023 Glucose measurement [facility] Work Phone: Start: 08-04-2023 Glucose measurement [facility] Work Phone: Start: 08-04-2023 Glucose measurement [facility] Work Phone: Start: 08-04-2023 Cyanocobalamin vitamin b-12 Ricky forrester MD Work Phone: Start: 08-04-2023 Glucose measurement [facility] Work Phone: Start: 08-04-2023 Comprehensive metabolic panel Ajit Ramirezi s DO Work Phone: Start: 08-04-2023 Red blood cell morphology Ajit Rader DO Work Phone: Start: 08-03-2023 Glucose measurement [facility] Work Phone: Start: 08-03-2023 Glucose measurement [facility] Work Phone: Start: 08-03-2023 Glucose measurement [facility] Work Phone: Start: 08-03-2023 Glucose measurement [facility] Work Phone: Start: 08-03-2023 Comprehensive metabolic panel Ajit Ramirezi s DO Work Phone: Start: 08-03-2023 Glucose measurement [facility] Work Phone: Start: 08-02-2023 Glucose measurement [facility] Work Phone: Start: 08-02-2023 Glucose measurement [facility] Work Phone: Start: 08-02-2023 Cul bact xcpt urine blood/stool aerobic isol Kinza Garrett MD Work Phone: Start: 08-02-2023 Glucose measurement [facility] Work Phone: Start: 08-02-2023 Glucose measurement [facility] Work Phone: Start: 08-02-2023 Comprehensive metabolic panel Ajit Avendano s DO Work Phone: Start: 08-02-2023 Red blood cell morphology Ajit Rader DO Work Phone: Start: 08-01-2023 Glucose measurement [facility] Work Phone: Start: 08-01-2023 Glucose measurement [facility] Work Phone: Start: 08-01-2023 Cul bact xcpt urine blood/stool aerobic isol Kinza Garrett MD Work Phone: Start: 08-01-2023 Comprehensive metabolic panel Ajit Ramirezi s DO Work Phone: Start: 08-01-2023 Red blood cell morphology Ajit Rader DO Work Phone: Start: 08-01-2023 Creatinine blood Lindsey Zhang RPh,PharmD Start: 08-01-2023 Drug screen quantitative vancomycin Lindsey Zhang RPh,PharmD Start: 07-31-2023 Glucose measurement [facility] Work Phone: Start: 07-31-2023 Glucose measurement [facility] Work Phone: Start: 07-31-2023 Glucose measurement [facility] Work Phone: Start: 07-31-2023 Glucose measurement [facility] Work Phone: Start: 07-31-2023 Basic metabolic panel calcium total Carina Eller ENVIRONMENTAL EMERGENCIES PLANNER Work Phone: Start: 07-30-2023 Glucose measurement [facility] Work Phone: Start: 07-30-2023 Glucose measurement [facility] Work Phone: Start: 07-30-2023 End: 07-30-2023 Cul bact xcpt urine blood/stool aerobic isol Shady Geris DO Work Phone: Start: 07-30-2023 Glucose measurement [facility] Work Phone: Start: 07-30-2023 Sedimentation rate rbc automated Shady Geris DO Work Phone: Start: 07-30-2023 Glucose measurement [facility] Work Phone: Start: 07-30-2023 C-reactive protein Shady Geris DO Work Phone: Start: 07-30-2023 Red blood cell morphology Moncho Joaquin MD Work Phone: Start: 07-30-2023 Renal function panel Moncho staples MD Work Phone: Start: 07-29-2023 Glucose measurement Moncho lama MD Work Phone: Start: 07-29-2023 Assay of lactate Uyen Gunn ENVIRONMENTAL EMERGENCIES PLANNER Work Phone: Start: 07-29-2023 Ct lower extremity w/contrast material Uyen Casiano ENVIRONMENTAL EMERGENCIES PLANNER Work Phone: Start: 07-29-2023 Basic metabolic panel calcium total Uyen Casiano ENVIRONMENTAL EMERGENCIES PLANNER Work Phone: Start: 07-29-2023 C-reactive protein Uyen miller ENVIRONMENTAL EMERGENCIES PLANNER Work Phone: Start: 07-29-2023 Culture bacterial blood aerobic w/id isolates Uyen Casiano ENVIRONMENTAL EMERGENCIES PLANNER Work Phone: Start: 07-29-2023 Debridement subcutaneous tissue 20 sq cm/< Cecilia Sabry Janet DPM Work Phone: Start: 07-29-2023 Cul bact xcpt urine blood/stool aerobic isol Cecilia Sabry [place] DPM Work Phone: Start: 07-15-2023 Debridement subcutaneous tissue 20 sq cm/< Cecilia Sabry Janet DPM Work Phone: Start: 07-15-2023 Cul bact xcpt urine blood/stool aerobic isol Cecilia Sabry [place] DPM Work Phone: Start: 07-08-2023 Debridement subcutaneous tissue 20 sq cm/< Cecilia Sabry Janet DPM Work Phone: Start: 07-01-2023 Debridement subcutaneous tissue 20 sq cm/< Cecilia Sabry [place] DPM Work Phone: Start: 06-07-2023 Adult depression screening assessment Quyen Franco ENVIRONMENTAL EMERGENCIES PLANNER Work Phone: Start: 03-22-2023 Complete blood count with white cell differential, automated Power Nelson MD Work Phone: Start: 03-22-2023 Renal function panel Power Nelson MD Work Phone: Start: 03-21-2023 PICC LINE PLACEMENT/REMOVAL Nathan Hayden MD Work Phone: Start: 03-21-2023 Renal function panel Power Nelson MD Work Phone: Start: 03-20-2023 Renal function panel Power Nelson MD Work Phone: Start: 03-19-2023 Renal function panel Power Nelson MD Work Phone: Start: 03-18-2023 Renal function panel Power Nelson MD Work Phone: Start: 03-17-2023 Drug test prsmv read direct optical obs pr date Nathan Hayden MD Work Phone: Start: 03-17-2023 End: 03-17-2023 Culture bacterial blood aerobic w/id isolates Isabel Tang ENVIRONMENTAL EMERGENCIES PLANNER Work Phone: Start: 03-17-2023 Prothrombin time Isabel Tang CN P Work Phone: Start: 03-17-2023 Renal function panel Power Nelson MD Work Phone: Start: 03-16-2023 Cultyp nuc acid amp prb cult/isolate ea orgnism Power Nelson MD Work Phone: Start: 03-16-2023 C-reactive protein Tyshawn Franklin PA-C Work Phone: Start: 03-16-2023 Creatine kinase total Tyshawn Franklin PA -C Work Phone: Start: 03-16-2023 Dup-scan xtr veins complete bilateral study Tyshawn Franklin PA-C Work Phone: Start: 03-16-2023 Radiologic exam chest single view Tyshawn Franklin PA-C Work Phone: Start: 03-16-2023 Complete blood count with white cell differential, automated Tyshawn Franklin PA-C Work Phone: Start: 03-16-2023 Comprehensive metabolic panel Tyshawn edmondson PA-C Work Phone: Start: 02-26-2023 Complete blood count with white cell differential, automated Nuno Dumont SUSTAINABILITY COORDINATOR-ENVIRONMENTAL EMERGENCIES PLANNER Work Phone: Start: 02-26-2023 Comprehensive metabolic panel Nuno mcmillan SUSTAINABILITY COORDINATOR-ENVIRONMENTAL EMERGENCIES PLANNER Work Phone: Start: 01-18-2023 Debridement open wound 20 sq cm/< Ami L Hay SUSTAINABILITY COORDINATOR-ENVIRONMENTAL EMERGENCIES PLANNER Work Phone: Start: 12-28-2022 Whit skn sub grft t/a/l area/100sq cm /<1st 25 Ami L Hay SUSTAINABILITY COORDINATOR-ENVIRONMENTAL EMERGENCIES PLANNER Work Phone: Start: 12-28-2022 SC PURAPLY 1 SQ CM PERFORMABLE Ami L Hay SUSTAINABILITY COORDINATOR-ENVIRONMENTAL EMERGENCIES PLANNER Work Phone: Start: 12-21-2022 Whit skn sub grft t/a/l area/100sq cm /<1st 25 Ami L Hay SUSTAINABILITY COORDINATOR-ENVIRONMENTAL EMERGENCIES PLANNER Work Phone: Start: 12-21-2022 SC PURAPLY 1 SQ CM PERFORMABLE Ami L Hay SUSTAINABILITY COORDINATOR-ENVIRONMENTAL EMERGENCIES PLANNER Work Phone: Start: 12-08-2022 Ct head/brain w/o contrast material Nathan Hayden MD Work Phone: Start: 10-21-2022 DIAGNOSTIC UPPER ENDOSCOPY Antony Cantu ich DO Work Phone: Start: 04-21-2022 Dup-scan xtr veins complete bilateral study Moncho Joaquin MD Work Phone: Start: 04-21-2022 C-reactive protein Quyen Sammy ENVIRONMENTAL EMERGENCIES PLANNER Work Phone: Start: 04-21-2022 Red blood cell morphology Moncho Joaquin MD Work Phone: Start: 04-21-2022 Renal function panel Moncho staples MD Work Phone: Start: 04-21-2022 Urnls dip stick/tablet reagent auto microscopy Moncho Joaquin MD Work Phone: Start: 04-20-2022 Us retroperitoneal real time w/image complete Moncho Joaquin MD Work Phone: Start: 04-20-2022 Assay of troponin quantitative Moncho Joaquin MD Work Phone: Start: 04-20-2022 Assay of troponin quantitative Moncho Tang Joaquin MD Work Phone: Start: 04-20-2022 Assay of troponin quantitative Carolina Solis MD Work Phone: Start: 04-20-2022 Electrocardiogram Provider Not In Syst em Start: 04-20-2022 End: 04-20-2022 Urnls dip stick/tablet reagent auto microscopy Carolina Solis MD Work Phone: Start: 04-20-2022 Gases blood ph direct edilma xcpt pulse oximitry Carolina Solis MD Work Phone: Start: 04-20-2022 OBTAIN VENOUS BLOOD GASES AND PERFORM Carolina Solis MD Work Phone: Start: 04-20-2022 End: 04-20-2022 Radiologic examination knee 1/2 views Uyen Phan Oh HUSAIN Work Phone: Start: 04-20-2022 Radiologic exam chest single view Carolina Solis MD Work Phone: Start: 04-20-2022 Gases blood ph direct edilma xcpt pulse oximitry Carolina Solis MD Work Phone: Start: 04-20-2022 Ecg routine ecg w/least 12 lds w/i&r Carolina Solis MD Work Phone: Start: 04-20-2022 Assay of lactate Carolina Solis MD Work Phone: Start: 04-20-2022 Blood ethanol measurement Carolina leizondo MD Work Phone: Start: 04-20-2022 End: 04-20-2022 Hepatic function panel Carolina reynolds MD Work Phone: Start: 04-20-2022 Red blood cell morphology Carolina elizondo MD Work Phone: Start: 03-07-2022 Assay of ethanol Nuno Cantor MD Work Phone: Start: 03-07-2022 C-reactive protein Nuno Cantor MD Work Phone: Start: 03-07-2022 Complete blood count with white cell differential, automated Nuno Cantor MD Work Phone: Start: 03-07-2022 Comprehensive metabolic panel Nuno mott MD Work Phone: Start: 03-07-2022 Radiologic examination tibia & fibula 2 views Nuno Cantor MD Work Phone: Start: 11-15-2021 Antihuman globulin direct each antiserum Paulino Peter DO Work Phone: Start: 11-15-2021 B12/folate level Paul Osman SUSTAINABILITY COORDINATOR-ENVIRONMENTAL EMERGENCIES PLANNER Work Phone: Start: 11-15-2021 Complete blood count with white cell differential, automated Evens Mann PA-C Work Phone: Start: 11-15-2021 Renal function panel Evens Mann PA-C Work Phone: Start: 11-14-2021 Fibrinogen activity Paulino Moeller O Work Phone: Start: 11-14-2021 Radex foot complete minimum 3 views Paul Osman SUSTAINABILITY COORDINATOR-ENVIRONMENTAL EMERGENCIES PLANNER Work Phone: Start: 11-14-2021 Ct angiography chest w/contrast/noncontrast Paul Osman SUSTAINABILITY COORDINATOR-ENVIRONMENTAL EMERGENCIES PLANNER Work Phone: Start: 11-14-2021 C-reactive protein Paul Osman SUSTAINABILITY COORDINATOR-ENVIRONMENTAL EMERGENCIES PLANNER Work Phone: Start: 11-14-2021 Iaad ia hepatitis b surface antigen Evens Mann PA-C Work Phone: Start: 11-14-2021 Renal function panel Evens Mann PA-C Work Phone: Start: 11-13-2021 Dup-scan xtr veins complete bilateral study Evens Mann PA-C Work Phone: Start: 11-13-2021 Creatine kinase total Eudora Johnathan PA- C Work Phone: Start: 11-13-2021 Rheumatoid factor qualitative Evens French macario PA-C Work Phone: Start: 11-13-2021 Comprehensive metabolic panel Nuno mott MD Work Phone: Start: 11-12-2021 Cultyp nuc acid amp prb cult/isolate ea orgnism Nuno Cantor MD Work Phone: Start: 11-12-2021 Ct abdomen & pelvis w/o contrast material Nuno Cantor MD Work Phone: Start: 11-12-2021 Sars-cov-2 detection by dna/rna Nuno Cnator MD Work Phone: Start: 11-12-2021 Urinalysis microscopic only Nuno mc MD Work Phone: Start: 11-12-2021 Urinalysis, reagent strip without microscopy Nuno Cantor MD Work Phone: Start: 11-12-2021 Radiologic exam chest single view Nuno Cantor MD Work Phone: Start: 11-12-2021 Ecg routine ecg w/least 12 lds trcg only w/o i&r Nuno Cantor MD Work Phone: Start: 11-12-2021 Comprehensive metabolic panel Nuno mott MD Work Phone: Start: 11-12-2021 End: 11-12-2021 Drug test def 1-7 classes Nuno davis MD Work Phone: Start: 10-07-2021 End: 10-07-2021 Radex ribs unilateral 2 views Olivia Y Os borne PA-C Work Phone: Start: 04-04-2021 Radex foot complete minimum 3 views Nuno Cantor MD Work Phone: Start: 02-02-2021 End: 02-02-2021 Radex clavicle complete Saulo Joseph MD Work Phone: Start: 12-04-2020 Basic metabolic 2000 panel - Serum or Plasma Felipe Sinha Work Phone: Start: 12-04-2020 Complete blood count with white cell differential, automated Felipe Oconnellon Work Phone: Start: 12-04-2020 Complete blood count with white cell differential, manual Felipe Oconnellon Work Phone: Start: 12-03-2020 Troponin measurement Felipe encinas Work Phone: Start: 12-03-2020 Troponin measurement Felipe Bob Lulaángel shankaron Work Phone: Start: 12-03-2020 Bacteria identified in Sputum by Aerobe culture Felipe Sinha Work Phone: Start: 12-03-2020 Blood count hematocrit [facility] Start: 12-03-2020 Radiologic exam chest single view Maury Garcia Work Phone: Start: 12-03-2020 Basic metabolic 2000 panel - Serum or Plasma Maury Garcia Work Phone: Start: 12-03-2020 Complete blood count with white cell differential, automated Maury Garcia Work Phone: Start: 12-03-2020 Complete blood count with white cell differential, manual Maury Garcia Work Phone: Start: 12-03-2020 COVID-19/INFLUENZA A,B MOLECULAR Maury Garcia Work Phone: Start: 12-03-2020 Lactate [Moles/volume] in Serum or Plasma Maury Garcia Work Phone: Start: 12-03-2020 LIGHT BLUE TOP Maury navarro Work Phone: Start: 12-03-2020 LIGHT GREEN TOP Maury navarro Work Phone: Start: 12-03-2020 OBTAIN VENOUS BLOOD GASES AND PERFORM Maury Garcia Work Phone: Start: 12-03-2020 RAINBOW DRAW Maury Sánchezt Work Phone: Start: 12-03-2020 Red blood cell morphology Maury Garcia Work Phone: Start: 12-03-2020 Troponin measurement Maury patricia Work Phone: Start: 12-03-2020 12 lead ECG Maury Sánchezt Work Phone: Start: 11-01-2020 Radiologic exam chest single view Christopher Fuentes Egal Work Phone: Start: 11-01-2020 12 lead ECG Christopher Fuentes Egal Work Phone: Start: 11-01-2020 Complete blood count with white cell differential, automated Christopher Fuentes Egal Work Phone: Start: 11-01-2020 Complete blood count with white cell differential, manual Christopher Fuentes Egal Work Phone: Start: 11-01-2020 Comprehensive metabolic 2000 panel - Serum or Plasma Christopher Fuentes Egal Work Phone: Start: 11-01-2020 LIGHT BLUE TOP Christopher Fuentes Egal Work Phone: Start: 11-01-2020 Natriuretic peptide.B prohormone N-Terminal [Mass/volume] in Serum or Plasma Christopher Fuentes Egal Work Phone: Start: 11-01-2020 RAINBOW DRAW Christopher Fuentes Egal Work Phone: Start: 11-01-2020 Troponin measurement Christopher Fuentes Ega l Work Phone: Start: 08-01-2020 12 lead ECG Saulo Joseph Work Phone: Start: 08-01-2020 Radiologic exam chest single view [facility] Cymraes Work Phone: Start: 08-01-2020 Gases blood ph direct edilma xcpt pulse oximitry Saulo Joseph Work Phone: Start: 08-01-2020 Complete blood count with white cell differential, automated Saulo Joseph Work Phone: Start: 08-01-2020 Complete blood count with white cell differential, manual Saulo Joseph Work Phone: Start: 08-01-2020 Comprehensive metabolic 2000 panel - Serum or Plasma Saulo Joseph Work Phone: Start: 08-01-2020 D-dimer assay, quantitative Saulo Joseph Work Phone: Start: 08-01-2020 LAVENDER TOP Saulo Joseph Work Phone: Start: 08-01-2020 LIGHT BLUE TOP Saulo Joseph Work Phone: Start: 08-01-2020 LIGHT GREEN TOP Saulo Joseph Work Phone: Start: 08-01-2020 MINT GREEN TOP Saulo Joseph Work Phone: Start: 08-01-2020 OBTAIN VENOUS BLOOD GASES AND PERFORM Saulo Joseph Work Phone: Start: 08-01-2020 RAINBOW DRAW Saulo Joseph Work Phone: Start: 08-01-2020 Troponin measurement Saulo Joseph Work Phone: Start: 07-09-2020 Glucose [Mass/volume] in Blood Venanciosheeba Quiros Work Phone: Start: 07-09-2020 Electrocardiogram Provider Not In Syst em Start: 07-09-2020 Glucose [Mass/volume] in Blood Venanciosheeba Quiros Work Phone: Start: 07-09-2020 Complete blood count with white cell differential, automated Pio Sequeira Work Phone: Start: 07-09-2020 Complete blood count with white cell differential, manual Pio Sequeira Work Phone: Start: 07-09-2020 Glucose [Mass/volume] in Blood Venancio Quirso Work Phone: Start: 07-09-2020 APTT - reference Venancio dumas Work Phone: Start: 07-09-2020 Basic metabolic 2000 panel - Serum or Plasma Venancio Quiros Work Phone: Start: 07-09-2020 Complete blood count (hemogram) panel - Blood by Automated count Venancio Quiros Work Phone: Start: 07-09-2020 Lactate dehydrogenase [Enzymatic activity/volume] in Serum or Plasma by Lactate to pyruvate reaction Carina Green Work Phone: Start: 07-09-2020 Magnesium [Mass/volume] in Serum or Plasma Venancio Quiros Work Phone: Start: 07-09-2020 Blood smear peripheral interp phys w/writ report Venancio Quiros Work Phone: Start: 07-09-2020 APTT - reference Krys Durairaj Work Phone: Start: 07-08-2020 Glucose [Mass/volume] in Blood Venancio Quiros Work Phone: Start: 07-08-2020 APTT - reference Krys Durairaj Work Phone: Start: 07-08-2020 Glucose [Mass/volume] in Blood Venancio Quiros Work Phone: Start: 07-08-2020 Glucose [Mass/volume] in Blood Venancio Quiros Work Phone: Start: 07-08-2020 Creatinine [Mass/volume] in Urine Mayur Hernandez Work Phone: Start: 07-08-2020 Urinalysis Carina Green Work Phone: Start: 07-08-2020 12 lead ECG Carina Green Work Phone: Start: 07-08-2020 Cortisol [Mass/volume] in Serum or Plasma Carina Green Work Phone: Start: 07-08-2020 Iron measurement Carina Green Work Phone: Start: 07-08-2020 Natriuretic peptide.B prohormone N-Terminal [Mass/volume] in Serum or Plasma Carina Green Work Phone: Start: 07-08-2020 Vitamin D, 25-hydroxy measurement Carina Green Work Phone: Start: 07-08-2020 CT angiography of pulmonary artery Carina Green Work Phone: Start: 07-08-2020 Ammonia [Mass/volume] in Plasma Carina Green Work Phone: Start: 07-08-2020 APTT - reference Venancio dumas Work Phone: Start: 07-08-2020 Complete blood count (hemogram) panel - Blood by Automated count Carina Green Work Phone: Start: 07-08-2020 INR in Platelet poor plasma by Coagulation assay Carina Green Work Phone: Start: 07-08-2020 Laboratory procedure, review by pathologist Carina Green Work Phone: Start: 07-08-2020 Contrast echocardiography Venancio Quiros Work Phone: Start: 07-08-2020 Glucose [Mass/volume] in Blood Venancio Quiros Work Phone: Start: 07-08-2020 Comprehensive metabolic 2000 panel - Serum or Plasma Carina Green Work Phone: Start: 07-08-2020 Lipid 1996 panel - Serum or Plasma Carina Green Work Phone: Start: 07-08-2020 Thyrotropin [Units/volume] in Serum or Plasma by Detection limit <= 0.005 mIU/L Carina Green Work Phone: Start: 07-08-2020 Troponin measurement Venancio Snow ap Work Phone: Start: 07-08-2020 Evaluation of arterial blood gas studies Venancio Zaragozap Work Phone: Start: 07-08-2020 Assay of lactate Kinsey Ignacio Work Phone: Start: 07-08-2020 Bacteria identified in Blood by Culture Kinsey Ignacio Work Phone: Start: 07-08-2020 Complete blood count (hemogram) panel - Blood by Automated count Venancio Quiros Work Phone: Start: 07-08-2020 D-dimer assay, quantitative Venancio Marcial Work Phone: Start: 07-08-2020 Magnesium [Mass/volume] in Serum or Plasma Venancio Harrisonasap Work Phone: Start: 07-08-2020 Troponin measurement Venancio Harrisonas ap Work Phone: Start: 07-08-2020 Radiography of [id number] Venancio Quiros Work Phone: Start: 07-08-2020 Ethanol [Mass/volume] in Serum or Plasma Kinsey Ignacio Work Phone: Start: 07-08-2020 Lactate [Moles/volume] in Serum or Plasma Kinsey Ignacio Work Phone: Start: 07-07-2020 Evaluation of arterial blood gas studies Kinsey Ignacio Work Phone: Start: 07-07-2020 OBTAIN ARTERIAL BLOOD GASES AND PERFORM Kinsey Ignacio Work Phone: Start: 07-07-2020 Drugs of abuse urine screening test Kinsey Ignacio Work Phone: Start: 11-16-2020 Electrolytes 3 panel - Urine Carina Green Work Phone: Start: 07-07-2020 Protein [Mass/volume] in Urine Carina Green Work Phone: Start: 07-07-2020 RAINBOW DRAW Kinsey Ignacio Work Phone: Start: 07-07-2020 Urinalysis Mayur Hernandez Work Phone: Start: 07-07-2020 URINE CONTAINER Kinsey Ignacio Work Phone: Start: 07-07-2020 12 lead ECG Kinsey Ignacio Work Phone: Start: 07-07-2020 Radiologic exam chest single view Kinsey Ignacio Work Phone: Start: 07-07-2020 Bacteria identified in Blood by Culture Knisey Ignacio Work Phone: Start: 07-07-2020 Intubation Kinsey Ignacio Work Phone: Start: 07-07-2020 Basic metabolic 1998 panel - Serum or Plasma Kinsey Ignacio Work Phone: Start: 07-07-2020 Complete blood count with white cell differential, automated Kinsey Ignacio Work Phone: Start: 07-07-2020 Complete blood count with white cell differential, manual Kinsey Ignacio Work Phone: Start: 07-07-2020 COVID-19, MOLECULAR Kinsey Ignacio Work Phone: Start: 07-07-2020 Hemoglobin A1c/Hemoglobin.total in Blood Venancioparag Quiros Work Phone: Start: 07-07-2020 Hepatic function 2000 panel - Serum or Plasma Venancio Wade Christyjenny Work Phone: Start: 07-07-2020 Natriuretic peptide.B prohormone N-Terminal [Mass/volume] in Serum or Plasma Kinsey Ignacio Work Phone: Start: 07-07-2020 Troponin measurement Kinsey Ignacio Work Phone: Start: 07-07-2020 Microalbumin [Mass/volume] in Urine by Test strip Saulo Joseph MD Work Phone: Start: 04-22-2020 End: 04-22-2020 X-ray of right foot Sb Freitas Thu Work Phone: Start: 01-08-2020 Glucose [Mass/volume] in Blood Sofíagilmar Dukes Work Phone: Start: 01-08-2020 Radiologic examination knee 1/2 views Sofía Dukes Work Phone: Start: 01-03-2020 Ct lower extremity w/o contrast material Sofía Dukes Work Phone: Start: 11-07-2019 INTAKE AND OUTPUT MARI SECOR Start: 11-07-2019 PULSE OXIMETRY SPOT CHECK MARI SECOR Start: 11-06-2019 NEBULIZER TX INTERMITTENT MARI SECOR Start: 11-06-2019 Blood count complete auto&auto difrntl wbc MARI SECOR Start: 11-06-2019 Comprehensive metabolic panel MARI SEC OR Start: 11-06-2019 NEBULIZER TX INTERMITTENT MARI SECOR Start: 11-06-2019 PULSE OXIMETRY SPOT CHECK MARI SECOR Start: 11-06-2019 NEBULIZER TX INTERMITTENT MARI SECOR Start: 11-06-2019 Iaadiadoo influenza Anya Givens Work Phone: Start: 11-06-2019 INITIATE OXYGEN THERAPY PROTOCOL MARI SECOR Start: 11-06-2019 NEBULIZER TX INTERMITTENT MARI SECOR Start: 11-06-2019 PULSE OXIMETRY SPOT CHECK MARI SECOR Start: 11-06-2019 ELEVATE HEELS OFF OF BED MARI SECOR Start: 11-06-2019 NURSING COMMUNICATION MARI SECOR Start: 11-06-2019 IP CONSULT TO SPIRITUAL SERVICES MARI SECOR Start: 11-06-2019 DAILY WEIGHTS MARI SECOR Start: 11-06-2019 DIET GENERAL MARI SECOR Start: 11-06-2019 DROPLET ISOLATION MARI SECOR Start: 11-06-2019 FULL CODE MARI SECOR Start: 11-06-2019 INITIATE OXYGEN THERAPY PROTOCOL MARI SECOR Start: 11-06-2019 INTAKE AND OUTPUT MARI SECOR Start: 11-06-2019 NEBULIZER TX INTERMITTENT MARI SECOR Start: 11-06-2019 NOTIFY PHYSICIAN (SPECIFY) MARI SECOR Start: 11-06-2019 PHARMACY TO DOSE VANCOMYCIN MARI SECOR Start: 11-06-2019 PULSE OXIMETRY SPOT CHECK MARI SECOR Start: 11-06-2019 REASON FOR NO MECHANICAL VTE PROPHYLAXIS MARI SECOR Start: 11-06-2019 SPUTUM INDUCTION MARI SECOR Start: 11-06-2019 TELEMETRY MONITORING MARI SECOR Start: 11-06-2019 TOBACCO CESSATION EDUCATION MARI SECOR Start: 11-06-2019 VITAL SIGNS MARI SECOR Start: 11-06-2019 Assay of lactate MARI SECOR Start: 11-06-2019 PATIENT STATUS (FROM ED OR OR/PROCEDURAL) MARI SECOR Start: 11-06-2019 Ct thorax w/o contrast material MARI SECOR Start: 11-06-2019 NEBULIZER TX INTERMITTENT MARI SECOR Start: 11-06-2019 Virus centrifuge enhncd id imfluor stain ea Anya Givens Work Phone: Start: 11-06-2019 Lactate [Moles/Vol] Anya Givens Work Phone: Start: 11-06-2019 Ecg routine ecg w/least 12 lds w/i&r MARI SECOR Start: 11-06-2019 EKG REPORT MARI SECOR Start: 11-06-2019 Assay of lactate MARI SECOR Start: 11-06-2019 Blood count complete auto&auto difrntl wbc MARI SECOR Start: 11-06-2019 BRAIN NATRIURETIC PEPTIDE MARI SECOR Start: 11-06-2019 Comprehensive metabolic panel MARI SEC OR Start: 11-06-2019 Culture bacterial blood aerobic w/id isolates MARI SECOR Start: 11-06-2019 CULTURE, BLOOD 1 MARI SECOR Start: 11-06-2019 Radiologic exam chest single view MARI SECOR Start: 11-06-2019 INITIATE OXYGEN THERAPY PROTOCOL MARI SECOR Start: 11-06-2019 Ct thorax w/o contrast material Anya Givens Work Phone: Start: 11-06-2019 INSERT PERIPHERAL IV MARI SECOR Start: 11-06-2019 NEBULIZER TX INTERMITTENT Anya Givens Work Phone: Start: 11-06-2019 POC PANEL (G3)-ART Anya Givens Work Phone: Start: 11-06-2019 Ecg routine ecg w/least 12 lds i&r only Anya Givens Work Phone: Start: 11-06-2019 EKG REPORT Hpf Scanning Start: 11-06-2019 Blood count complete auto&auto difrntl wbc Anya Givens Work Phone: Start: 11-06-2019 Comprehensive metabolic panel José Givens Work Phone: Start: 11-06-2019 LACTATE, SEPSIS Anya Givens Work Phone: Start: 11-06-2019 Natriuretic peptide Anya Givens Work Phone: Start: 11-06-2019 Radiologic exam chest single view Anya Givens Work Phone: Start: 11-06-2019 INITIATE OXYGEN THERAPY PROTOCOL Anya Givens Work Phone: Start: 04-03-2019 Radiologic exam chest single view Kinsey Hannahdenise Ignacio Work Phone: Start: 04-03-2019 End: 04-03-2019 12 lead ECG Kinsey Ignacio Work Phone: Start: 04-03-2019 Basic metabolic 1998 panel - Serum or Plasma Kinsey Ignacio Work Phone: Start: 04-03-2019 Complete blood count with white cell differential, automated Kinsey Ignacio Work Phone: Start: 04-03-2019 Complete blood count with white cell differential, manual Kinsey Ignacio Work Phone: Start: 04-03-2019 Natriuretic peptide.B prohormone N-Terminal [Mass/volume] in Serum or Plasma Kinsey Ignacio Work Phone: Start: 04-03-2019 Red blood cell morphology Kinsey gordon Work Phone: Start: 04-03-2019 Troponin measurement Kinsey Ignacio Work Phone: Start: 03-04-2019 Doppler echocard pulse wave w/spectral display MARI HUGHESOR Start: 03-04-2019 OUTSIDE RADIOLOGY Historical Provider Start: 03-04-2019 Radiologic exam chest single view MARI SECOR Start: 03-04-2019 Assay of thyroid stimulating hormone tsh MARI SECOR Start: 03-04-2019 Assay of troponin quantitative MARI SECOR Start: 03-04-2019 Blood count complete auto&auto difrntl wbc MARI SECOR Start: 03-04-2019 BRAIN NATRIURETIC PEPTIDE MARI SECOR Start: 03-04-2019 Comprehensive metabolic panel MARI SEC OR Start: 03-04-2019 Ecg routine ecg w/least 12 lds w/i&r MARI SECOR Start: 03-04-2019 SALINE LOCK IV MARI SECOR Start: 02-03-2019 Blood count complete auto&auto difrntl wbc MARI SECOR Start: 02-03-2019 Comprehensive metabolic panel MARI SEC OR Start: 02-03-2019 Radiologic exam chest 2 views MARI SEC OR Start: 02-03-2019 OUTSIDE RADIOLOGY Prashanth Armenta Work Phone: Start: 02-03-2019 NEBULIZER TX INTERMITTENT MARI SECOR Start: 02-03-2019 Ecg routine ecg w/least 12 lds w/i&r MARI SECOR Start: 07-31-2018 End: 07-31-2018 Radiologic examination knee 1/2 views Rashaad Liriano Work Phone: Start: 02-07-2018 Lipid 1996 panel - Serum or Plasma Palmer Givens Plan of Treatment Date Care Activity Detail Author Start: 2041 RSV Vaccines (1 - 1-dose 75+ series) RSV Vaccines (1 - 1-dose 75+ series) [facility] Start: 02-26-2033 Tetanus vaccination [facility] Start: 02-26-2033 Vaccination for diphtheria, pertussis, and tetanus Tetanus/Diphtheria/Pertus sis (3 - Td or Tdap) [facility] Start: 05-16-2026 eGFR Diabetes eGFR Diabetes [facility] Start: 04-05-2026 eGFR Diabetes eGFR Diabetes [facility] Start: 10-22-2025 Urine screening for protein eGFR [facility] Start: 10-16-2025 Urine screening for protein eGFR Diabetes [facility] Start: 08-13-2025 Hemoglobin A1c measurement A1C [facility] Start: 07-01-2025 End: 07-01-2025 Admission to same day surgery center 07/01/2025 2:31 PM EST - 07/01/2025 5:10 PM EST Surgery [facility] [address] [place] [address] Sofía Dukes MD [address] [place] [address] Resection arthroplasty with antibiotic spacer right knee [facility] Comment on above: Resection arthroplasty with antibiotic s pacer right knee Start: 07-01-2025 End: 07-01-2025 Rmvl prosth tot knee prosth mma w/wo insj spacer ARTHROTOMY KNEE WITH SPACER INSERTION Abscess of knee, right History of total right knee replacement 07/01/2025 2:31 PM EST [facility] Start: 07-01-2025 Subsequent hospital visit by physician [facility] Start: 06-13-2025 End: 06-13-2025 Follow-up encounter 06/13/2025 4:00 PM EDT Follow-Up [facility] [address] [place] [address] Sofía Dukes MD [address] [place] [address] [facility] Start: 05-09-2025 End: 05-09-2025 Patient encounter procedure 05/09/2025 2:00 PM EDT Office Visit [facility] [address] [place] [address] Daniel Hammer MD [address] [address] [facility] Start: 04-22-2025 COVID-19 Vaccine ( season) COVID-19 Vaccine ( season) [facility] Start: 04-22-2025 COVID-19 Vaccine ( season) COVID-19 Vaccine ( season) [facility] Start: 04-22-2025 Influenza vaccination [facility] Start: 04-16-2025 Hemoglobin A1c measurement A1C [facility] Start: 01-18-2025 End: 01-18-2025 Patient encounter procedure 01/18/2025 1:30 PM EDT Office Visit [facility] [address] [place] [phone] Cecilia Gonzales, DPM [address] [place] [address] Discharge Disposition: Home [facility] Start: 01-04-2025 End: 01-04-2025 Patient encounter procedure 01/04/2025 2:00 PM EDT Office Visit [facility] [address] [place] [phone] Cecilia Gonzales, DPM [address] [place] [address] Discharge Disposition: Home [facility] Start: 01-02-2025 End: 01-02-2025 Patient encounter procedure 01/02/2025 2:20 PM EDT Office Visit [facility] [address] [place] [address], 3rd [place] [address] Ani Worley, [address] [address] Luis Daniel Cao III, [address] [place] [address] [facility] Start: 12-28-2024 End: 12-28-2024 Patient encounter procedure 12/28/2024 1:30 PM EDT Office Visit [facility] [address] [place] [phone] Cecilia Gonzales, DPM [address] [place] [address] Discharge Disposition: [facility] Start: 12-21-2024 End: 12-21-2024 Patient encounter procedure 12/21/2024 1:15 PM EDT Office Visit [facility] [address] [place] [phone] Cecilia Gonzales, DPM [address] [place] [address] Discharge Disposition: [facility] Start: 11-30-2024 End: 11-30-2024 Patient encounter procedure 11/30/2024 11:00 AM EDT Office Visit [facility] [address] [place] [phone] Cecilia Gonzales, DPM [address] [place] [address] Discharge Disposition: [facility] Start: 11-15-2024 End: 11-15-2024 Patient encounter procedure 11/15/2024 10:30 AM EDT Office Visit [facility] [address] [place] [phone] Sofía Garcia PA-C [address] [place] [id number] [facility] Start: 11-09-2024 End: 11-09-2024 Patient encounter procedure 11/09/2024 1:15 PM EDT Office Visit [facility] [address] [place] [address] Cecilia Gonzales, DPM [address] [place] [address] Discharge Disposition: [facility] Care Start: 10-26-2024 End: 10-26-2024 Patient encounter procedure 10/26/2024 1:30 PM EST Office Visit [facility] [address] [place] [address] Cecilia Gonzales DPM [address] [place] [address] Discharge Disposition: Home [facility] Start: 08-10-2024 Screening for malignant neoplasm of colon [facility] Start: 06-07-2024 Depression screening using PHQ-9 (Patient Health Questionnaire 9) score [facility] Start: 04-22-2024 COVID-19 Vaccine () COVID-19 Vaccine () [facility] Start: 04-22-2024 Influenza vaccination [facility] Start: 03-22-2024 Potassium [Moles/volume] in Serum or Plasma POTASSIUM [facility] Start: 01-29-2024 Hemoglobin A1c measurement A1C [facility] Start: 01-11-2024 Hemoglobin A1c measurement A1C [facility] Start: 01-09-2024 End: 01-09-2024 Patient encounter procedure 01/09/2024 2:15 PM EDT Office Visit [facility] [address] [place] [address] Jenise Gerardo DO [address] [place] [address] [facility] Start: 11-30-2023 Hemoglobin A1c measurement A1C [facility] Start: 09-09-2023 End: 09-09-2023 Patient encounter procedure 09/09/2023 2:15 PM EST Office Visit [facility] [address] [place] [phone] Cecilia Gonzales DPM [address] [place] [address] Discharge Disposition: [facility] Start: 09-02-2023 End: 09-02-2023 Patient encounter procedure 09/02/2023 2:15 PM EST Office Visit [facility] [address] [place] [address] Cecilia Gonzales, DPM [address] [place] [address] Discharge Disposition: Home [facility] Start: 08-30-2023 Hemoglobin A1c measurement A1C [facility] Start: 08-26-2023 End: 08-26-2023 Patient encounter procedure 08/26/2023 1:15 PM EST Office Visit [facility] [address] [facility] [place] [address] Cecilia Gonzales, DPM [address] [place] [address] Discharge Disposition: Home [facility] Start: 08-19-2023 End: 08-19-2023 [facility] Start: 07-22-2023 End: 07-22-2023 Patient encounter procedure 07/22/2023 11:00 AM EST Office Visit [facility] [address] [facility] [place] [address] Cecilia Gonzales, DPM [address] [place] [address] Discharge Disposition: Home [facility] Start: 07-15-2023 End: 07-15-2023 Patient encounter procedure 07/15/2023 7:30 AM EST Office Visit [facility] [address] [facility] [place] [address] Cecilia Gonzales, DPM [address] [place] [address] Discharge Disposition: [facility] Start: 07-08-2023 End: 07-08-2023 Patient encounter procedure 07/08/2023 1:30 PM EST Office Visit [facility] [address] [place] [address] Cecilia Gonzales, DPM [address] [place] [address] Discharge Disposition: [facility] Start: 06-24-2023 End: 06-24-2023 Patient encounter procedure 06/24/2023 8:45 AM EDT Office Visit [facility] [address] [place] [address] Cecilia Gonzales, DPM [address] [place] [address] Discharge Disposition: [facility] Start: 06-03-2023 End: 06-03-2023 Patient encounter procedure 06/03/2023 9:00 AM EDT Office Visit [facility] [address] [place] [address] Quyen Franco, ENVIRONMENTAL EMERGENCIES PLANNER [address] [place] [address] Discharge Disposition: [facility] Start: 05-02-2023 End: 05-02-2023 Patient encounter procedure [facility] Start: 04-26-2023 End: 04-26-2023 Clinical Support Encounter 04/26/2023 11:00 AM EDT Clinical Support Encounter [facility] [address] [place] [address] [facility] Start: 04-22-2023 COVID-19 Vaccine ( season) COVID-19 Vaccine ( season) [facility] Start: 04-22-2023 Influenza vaccination [facility]ste m Start: 04-18-2023 End: 04-18-2023 Patient encounter procedure [facility] Start: 04-12-2023 End: 04-12-2023 Patient encounter procedure [facility] Start: 04-07-2023 End: 04-07-2024 Complete blood count with white cell differential, automated CBC, EDIF, PLATELET Lab Routine Left leg cellulitis Expected: 04/07/2023, Expires: 04/07/2024 [facility] Comment on above: Expected: 04/07/2023, Expires: Start: 04-07-2023 End: 04-07-2024 Comprehensive metabolic 2000 panel - Serum or Plasma COMPREHENSIVE METABOLIC PANEL Lab Routine Left leg cellulitis Expected: 04/07/2023, Expires: 04/07/2024 [facility] Comment on above: Expected: 04/07/2023, Expires: Start: 04-07-2023 End: 04-07-2023 Patient encounter procedure 04/07/2023 10:00 AM EDT Office Visit [facility] [address] [place] [address] Nathan Hayden MD [address] [place] [address] [facility] Start: 03-31-2023 End: 03-31-2024 Bacterial culture and sensitivity [facility] Comment on above: Expected: 03/31/2023, Expires: Start: 03-31-2023 End: 03-31-2024 SCREEN: MRSA ONLY, NARES (ISOLATION SCREEN) [facility] Comment on above: Expected: 03/31/2023, Expires: Start: 03-23-2023 End: 03-23-2023 Patient encounter procedure 03/23/2023 11:45 AM EDT Office Visit [facility] Infect[facility] [address] [place] [address] Nathan Hayden MD [address] [place] [address] [facility] Start: 03-01-2023 End: 03-01-2023 Patient encounter procedure 03/01/2023 1:15 PM EDT Office Visit [facility] [address] [place] [address] Nj Ayala, SUSTAINABILITY COORDINATOR-ENVIRONMENTAL EMERGENCIES PLANNER [address] [phone] [facility] [place] [facility] Start: 02-28-2023 End: 02-28-2023 ambulatory 02/28/2023 12:00 PM EDT Rehab Services Visit [facility] [address] [address] Nj Ayala, SUSTAINABILITY COORDINATOR-ENVIRONMENTAL EMERGENCIES PLANNER [address] [phone] Isa García PTA [facility] [place] Start: 02-23-2023 End: 02-23-2023 [facility] Start: 02-21-2023 End: 02-21-2023 Clinical Support Encounter 02/21/2023 8:45 AM EDT Clinical Support Encounter [facility] [place] [facility] [address] [place] [address] Nj Ayala, SUSTAINABILITY COORDINATOR-ENVIRONMENTAL EMERGENCIES PLANNER [address] [phone] [facility] [place] [facility] Start: 02-15-2023 End: 02-15-2023 ambulatory 02/15/2023 2:00 PM EDT Rehab Services Visit [facility] [address] [address] Nj Ayala, SUSTAINABILITY COORDINATOR-ENVIRONMENTAL EMERGENCIES PLANNER [address] [address] [phone] Marcelina Tee, PT [facility] [place] Start: 02-15-2023 End: 02-15-2023 Patient encounter procedure 02/15/2023 1:15 PM EDT Office Visit [facility] [place] [facility] [address] [place] [address] Nj Ayala, SUSTAINABILITY COORDINATOR-ENVIRONMENTAL EMERGENCIES PLANNER [address] [phone] [facility] Start: 02-08-2023 End: 02-08-2023 Patient encounter procedure 02/08/2023 Office Visit Chemotherapy Bridget Dahl MD [address] [facility] [place] [address] [facility] Start: 02-08-2023 End: 03-08-2023 XR Foot - right [facility] Comment on above: Expected: 02/08/2023, Expires: Start: 02-07-2023 Fasting lipid profile LIPID SCREENING [facility] 9+ Syste m Start: 02-07-2023 Lipid panel LIPID SCREENING [facility] Start: 02-01-2023 End: 02-01-2023 Patient encounter procedure 02/01/2023 Office Visit Wound Care Nj Ayala, SUSTAINABILITY COORDINATOR-ENVIRONMENTAL EMERGENCIES PLANNER [address] [phone] [facility] Start: 02-01-2023 End: 02-01-2023 ambulatory 02/01/2023 Rehab Services Visit Physical Therapy Nj Ayala, SUSTAINABILITY COORDINATOR-ENVIRONMENTAL EMERGENCIES PLANNER [address] [phone] Isa García PTA [facility] [place] Start: 01-28-2023 End: 01-28-2023 Patient encounter procedure 01/28/2023 Office Visit Podiatry Kristi Bryan, DPMicheal [address] [facility], [facility] Start: 01-26-2023 End: 01-27-2024 HCV RNA HERMAN QUAL RFX TO QUANT HCV RNA HERMAN QUAL RFX TO QUANT Lab Routine Chronic hepatitis C without hepatic coma Expected: 01/26/2023, Expires: 01/27/2024 [facility] Comment on above: Expected: 01/26/2023, Expires: Start: 01-26-2023 End: 01-27-2024 Hepatic function 2000 panel - Serum or Plasma HEPATIC FUNCTION PANEL Lab Routine Chronic hepatitis C without hepatic coma Expected: 01/26/2023, Expires: 01/27/2024 [facility] Comment on above: Expected: 01/26/2023, Expires: Start: 01-26-2023 End: 01-27-2024 M TUBERCULOSIS BY QUANTIFERON, BLD M TUBERCULOSIS BY QUANTIFERON, BLD Lab Routine Healthcare maintenance Expected: 01/26/2023, Expires: 01/27/2024 [facility] Comment on above: Expected: 01/26/2023, Expires: Start: 01-26-2023 End: 01-27-2024 PROTIME-INR PROTIME-INR Lab Routine Chronic hepatitis C without hepatic coma Cirrhosis of liver without ascites, unspecified hepatic cirrhosis type Expected: 01/26/2023, Expires: 01/27/2024 [facility] Comment on above: Expected: 01/26/2023, Expires: Start: 01-25-2023 End: 01-25-2023 Patient encounter procedure 01/25/2023 Office Visit Wound Care Nj Ayala SUSTAINABILITY COORDINATOR-ENVIRONMENTAL EMERGENCIES PLANNER [address] [address] [facility] Start: 01-25-2023 End: 01-25-2023 ambulatory 01/25/2023 Rehab Services Visit Physical Therapy Nj yAala, SUSTAINABILITY COORDINATOR-ENVIRONMENTAL EMERGENCIES PLANNER [address] [address] Isa García PTA [facility] [place] Start: 01-12-2023 End: 01-12-2023 Patient encounter procedure 01/12/2023 Office Visit Infectious Diseases Nathan Hayden MD [address] [place] [address] [facility] Start: 01-04-2023 End: 01-04-2023 Patient encounter procedure 01/04/2023 Office Visit Wound Care Nj Ayala, SUSTAINABILITY COORDINATOR-ENVIRONMENTAL EMERGENCIES PLANNER [address] [place] [address] [facility] [place] [facility] Start: 01-04-2023 End: 01-04-2023 ambulatory 01/04/2023 Rehab Services Visit Physical Therapy Nj Ayala, SUSTAINABILITY COORDINATOR-ENVIRONMENTAL EMERGENCIES PLANNER [address] [place] [address] Isa García PTA [facility] [place] Start: 12-28-2022 End: 12-28-2022 Patient encounter procedure 12/28/2022 Office Visit Wound Care Nj Ayala, SUSTAINABILITY COORDINATOR-ENVIRONMENTAL EMERGENCIES PLANNER [address] [place] [address] [facility] Start: 12-28-2022 End: 12-28-2022 ambulatory 12/28/2022 Rehab Services Visit Physical Therapy Nj Ayala, SUSTAINABILITY COORDINATOR-ENVIRONMENTAL EMERGENCIES PLANNER [address] [place] [address] Isa García PTA [facility] [place] Start: 12-21-2022 End: 12-21-2022 Patient encounter procedure 12/21/2022 Office Visit Wound Care Nj Ayala, SUSTAINABILITY COORDINATOR-ENVIRONMENTAL EMERGENCIES PLANNER [address] [place] [address] [facility] [place] [facility] Start: 12-14-2022 End: 12-14-2022 Patient encounter procedure 12/14/2022 Office Visit Wound Care Nj Ayala, SUSTAINABILITY COORDINATOR-ENVIRONMENTAL EMERGENCIES PLANNER [address] [place] [address] [facility] [place] [facility] Start: 12-14-2022 End: 12-14-2022 ambulatory 12/14/2022 Rehab Services Visit Physical Therapy Nj Ayala, SUSTAINABILITY COORDINATOR-ENVIRONMENTAL EMERGENCIES PLANNER [address] [place] [address] Marcelina Tee, PT [facility] [place] Start: 12-08-2022 End: 12-08-2022 Patient encounter procedure 12/08/2022 Office Visit Infectious Diseases Nathan Hayden MD [address] [place] [address] [facility] Start: 12-07-2022 End: 12-07-2022 Patient encounter procedure 12/07/2022 Office Visit Chemotherapy Bridget Dahl MD [address] [place] [place] [address] [facility] Start: 12-07-2022 End: 12-07-2022 Patient encounter procedure 12/07/2022 Office Visit Wound Care Nj Ayala Sheryl, SUSTAINABILITY COORDINATOR-ENVIRONMENTAL EMERGENCIES PLANNER [address] [place] [address] [facility] Start: 11-30-2022 End: 11-30-2022 Clinical Support Encounter 11/30/2022 Clinical Support Encounter Wound Care Nj Ayala Sheryl, SUSTAINABILITY COORDINATOR-ENVIRONMENTAL EMERGENCIES PLANNER [address] [place] [phone] [facility] Start: 11-25-2022 End: 11-25-2022 Patient encounter procedure 11/25/2022 Office Visit Chemotherapy Bridget Dahl MD [address] [place] [address] [facility] Start: 11-25-2022 End: 11-26-2023 ISSAC MULTIPLEX SCRN WITH REFLEX ISSAC MULTIPLEX SCRN WITH REFLEX Lab Routine Pancytopenia Thrombocytopenia Leukopenia, unspecified type Microcytic hypochromic anemia Hepatosplenomegaly Expected: 11/25/2022, Expires: 11/26/2023 [facility] Comment on above: Expected: 11/25/2022, Expires: Start: 11-25-2022 End: 11-26-2023 Cyanocobalamin vitamin b-12 VITAMIN B12 Lab Routine Pancytopenia Thrombocytopenia Leukopenia, unspecified type Microcytic hypochromic anemia Hepatosplenomegaly Expected: 11/25/2022, Expires: 11/26/2023 [facility] Comment on above: Expected: 11/25/2022, Expires: Start: 11-25-2022 End: 11-26-2023 DSDNA ANTIBODY DSDNA ANTIBODY Lab Routine Pancytopenia Thrombocytopenia Leukopenia, unspecified type Microcytic hypochromic anemia Hepatosplenomegaly Expected: 11/25/2022, Expires: 11/26/2023 [facility] Comment on above: Expected: 11/25/2022, Expires: Start: 11-25-2022 End: 11-26-2023 Ferritin [Mass/volume] in Serum or Plasma FERRITIN Lab Routine Pancytopenia Thrombocytopenia Leukopenia, unspecified type Microcytic hypochromic anemia Hepatosplenomegaly Expected: 11/25/2022, Expires: 11/26/2023 [facility] Comment on above: Expected: 11/25/2022, Expires: Start: 11-25-2022 End: 11-26-2023 Folate [Mass/volume] in Serum or Plasma FOLATE, SERUM Lab Routine Pancytopenia Thrombocytopenia Leukopenia, unspecified type Microcytic hypochromic anemia Hepatosplenomegaly Expected: 11/25/2022, Expires: 11/26/2023 [facility] Comment on above: Expected: 11/25/2022, Expires: Start: 11-25-2022 End: 11-26-2023 IRON/IRON BINDING/TRANSFERRIN IRON/IRON BINDING/TRANSFERRIN Lab Routine Pancytopenia Thrombocytopenia Leukopenia, unspecified type Microcytic hypochromic anemia Hepatosplenomegaly Expected: 11/25/2022, Expires: 11/26/2023 [facility] Comment on above: Expected: 11/25/2022, Expires: Start: 11-25-2022 End: 11-26-2023 PLATELET AB ID PANEL PLATELET AB ID PANEL Lab Routine Pancytopenia Thrombocytopenia Leukopenia, unspecified type Microcytic hypochromic anemia Hepatosplenomegaly Expected: 11/25/2022, Expires: 11/26/2023 [facility] Comment on above: Expected: 11/25/2022, Expires: Start: 11-25-2022 End: 11-26-2023 REQUEST FOR MISC LAB SENDOUT REQUEST FOR MISC LAB SENDOUT Lab Routine Pancytopenia Thrombocytopenia Leukopenia, unspecified type Microcytic hypochromic anemia Hepatosplenomegaly Expected: 11/25/2022 (Approximate), Expires: 11/26/2023 [facility] Comment on above: Expected: 11/25/2022 (Approximate), Expi res: 11/26/2023 Start: 11-25-2022 End: 11-26-2023 RETICULOCYTES RETICULOCYTES Lab Routine Pancytopenia Thrombocytopenia Leukopenia, unspecified type Microcytic hypochromic anemia Hepatosplenomegaly Expected: 11/25/2022, Expires: 11/26/2023 [facility] Comment on above: Expected: 11/25/2022, Expires: Start: 11-25-2022 End: 11-26-2023 SOLUBLE TRANSFERRIN RECEPTOR SOLUBLE TRANSFERRIN RECEPTOR Lab Routine Pancytopenia Thrombocytopenia Leukopenia, unspecified type Microcytic hypochromic anemia Hepatosplenomegaly Expected: 11/25/2022, Expires: 11/26/2023 [facility] Comment on above: Expected: 11/25/2022, Expires: Start: 11-24-2022 End: 11-24-2022 Patient encounter procedure 11/24/2022 Office Visit Infectious Diseases Nathan Hayden MD [address] [place] [address] [facility] Start: 11-23-2022 End: 11-23-2022 Patient encounter procedure 11/23/2022 Office Visit Wound Care Nj Ayala, SUSTAINABILITY COORDINATOR-ENVIRONMENTAL EMERGENCIES PLANNER [address] [place] [address] [facility] Start: 11-15-2022 Potassium [Moles/volume] in Serum or Plasma POTASSIUM [facility] Start: 11-09-2022 End: 11-09-2022 Patient encounter procedure 11/09/2022 Office Visit Wound Care Jamie Nj Sheryl, SUSTAINABILITY COORDINATOR-ENVIRONMENTAL EMERGENCIES PLANNER [address] [place] [phone] [facility] Start: 10-27-2022 End: 10-27-2022 Patient encounter procedure 10/27/2022 Office Visit Infectious Diseases Nathan Hayden MD [address] [place] [address] [facility] Start: 10-21-2022 End: 10-21-2022 Patient encounter procedure 10/21/2022 Appointment Endoscopy Erick Snow, Antony Morgan, DO [address] [place] [address] [facility] Start: 09-30-2022 End: 09-30-2022 Patient encounter procedure 09/30/2022 Office Visit Podiatry Felipe Molina DPM [address] [place] [address] [facility] Start: 09-29-2022 End: 09-29-2023 Complete blood count with white cell differential, automated CBC, EDIF, PLATELET Lab Routine Chronic hepatitis C without hepatic coma Expected: 09/29/2022, Expires: 09/29/2023 [facility] Comment on above: Expected: 09/29/2022, Expires: Start: 09-29-2022 End: 09-29-2023 Comprehensive metabolic 2000 panel - Serum or Plasma COMPREHENSIVE METABOLIC PANEL Lab Routine Chronic hepatitis C without hepatic coma Expected: 09/29/2022, Expires: 09/29/2023 [facility] Comment on above: Expected: 09/29/2022, Expires: Start: 09-29-2022 End: 09-29-2023 HBV REAL-TIME PCR, QUANT HBV REAL-TIME PCR, QUANT Lab Routine Chronic hepatitis C without hepatic coma Hepatitis B core antibody positive Expected: 09/29/2022, Expires: 09/29/2023 [facility] Comment on above: Expected: 09/29/2022, Expires: Start: 09-29-2022 End: 09-29-2023 HCV RNA HERMAN QUAL RFX TO QUANT HCV RNA HERMAN QUAL RFX TO QUANT Lab Routine Chronic hepatitis C without hepatic coma Expected: 09/29/2022, Expires: 09/29/2023 [facility] Comment on above: Expected: 09/29/2022, Expires: Start: 09-23-2022 End: 09-23-2022 Patient encounter procedure 09/23/2022 Appointment Endoscopy Antony Suarez Jr., DO [address] [place] [address], [place] [address] [facility] Start: 09-15-2022 End: 09-15-2022 Patient encounter procedure 09/15/2022 Office Visit Infectious Diseases Nathan Hayden MD [address] [place] [address] [facility] Start: 08-26-2022 End: 08-26-2022 Patient encounter procedure 08/26/2022 Office Visit Gastroenterology Antony Suarez Jr., DO [address] [place] [address], [place] [address] [facility] Start: 08-26-2022 End: 08-26-2023 ISSAC MULTIPLEX SCRN WITH REFLEX ISSAC MULTIPLEX SCRN WITH REFLEX Lab Routine Cirrhosis of liver without ascites, unspecified hepatic cirrhosis type Chronic hepatitis C without hepatic coma Expected: 08/26/2022, Expires: 08/26/2023 [facility] Comment on above: Expected: 08/26/2022, Expires: Start: 08-26-2022 End: 08-26-2023 ANCA INIT SCRN (ANCA, PR3AB, MPO) ANCA INIT SCRN (ANCA, PR3AB, MPO) Lab Routine Cirrhosis of liver without ascites, unspecified hepatic cirrhosis type Chronic hepatitis C without hepatic coma Expected: 08/26/2022, Expires: 08/26/2023 [facility] Comment on above: Expected: 08/26/2022, Expires: 4 Start: 08-26-2022 End: 08-26-2023 Angiotensin converting enzyme [Enzymatic activity/volume] in Serum or Plasma ANGIOTENSIN CONVERTING ENZYME Lab Routine Cirrhosis of liver without ascites, unspecified hepatic cirrhosis type Chronic hepatitis C without hepatic coma Expected: 08/26/2022, Expires: 08/26/2023 [facility] Comment on above: Expected: 08/26/2022, Expires: Start: 08-26-2022 End: 08-26-2023 ANTI MITOCHONDRIAL ANTIBODY ANTI MITOCHONDRIAL ANTIBODY Lab Routine Cirrhosis of liver without ascites, unspecified hepatic cirrhosis type Chronic hepatitis C without hepatic coma Expected: 08/26/2022, Expires: 08/26/2023 [facility] Comment on above: Expected: 08/26/2022, Expires: 4 Start: 08-26-2022 End: 08-26-2023 CERULOPLASMIN CERULOPLASMIN Lab Routine Cirrhosis of liver without ascites, unspecified hepatic cirrhosis type Chronic hepatitis C without hepatic coma Expected: 08/26/2022, Expires: 08/26/2023 [facility] Comment on above: Expected: 08/26/2022, Expires: 4 Start: 08-26-2022 End: 08-26-2023 CMV IGM AB CMV IGM AB Lab Routine Cirrhosis of liver without ascites, unspecified hepatic cirrhosis type Chronic hepatitis C without hepatic coma Expected: 08/26/2022, Expires: 08/26/2023 [facility] Comment on above: Expected: 08/26/2022, Expires: 4 Start: 08-26-2022 End: 08-26-2023 COPPER COPPER Lab Routine Cirrhosis of liver without ascites, unspecified hepatic cirrhosis type Chronic hepatitis C without hepatic coma Expected: 08/26/2022, Expires: 08/26/2023 [facility] Comment on above: Expected: 08/26/2022, Expires: 4 Start: 08-26-2022 End: 08-26-2023 DIAGNOSTIC UPPER ENDOSCOPY DIAGNOSTIC UPPER ENDOSCOPY GI/Bronch Routine Cirrhosis of liver without ascites, unspecified hepatic cirrhosis type Chronic hepatitis C without hepatic coma Expected: 08/26/2022, Expires: 08/26/2023 [facility] Comment on above: Expected: 08/26/2022, Expires: 4 Start: 08-26-2022 End: 08-26-2023 EBV ACUTE INFECTION ANTIBODIES PROFILE EBV ACUTE INFECTION ANTIBODIES PROFILE Lab Routine Cirrhosis of liver without ascites, unspecified hepatic cirrhosis type Chronic hepatitis C without hepatic coma Expected: 08/26/2022, Expires: 08/26/2023 [facility] Comment on above: Expected: 08/26/2022, Expires: Start: 08-26-2022 End: 08-26-2023 Protein electrophoresis PROTEIN ELECTROPHORESIS Lab Routine Cirrhosis of liver without ascites, unspecified hepatic cirrhosis type Chronic hepatitis C without hepatic coma Expected: 08/26/2022, Expires: 08/26/2023 [facility] Comment on above: Expected: 08/26/2022, Expires: Start: 08-26-2022 End: 08-26-2023 REQUEST FOR MISC LAB SENDOUT REQUEST FOR MISC LAB SENDOUT Lab Routine Cirrhosis of liver without ascites, unspecified hepatic cirrhosis type Chronic hepatitis C without hepatic coma Expected: 08/26/2022, Expires: 08/26/2023 [facility] Comment on above: Expected: 08/26/2022, Expires: 4 Start: 08-11-2022 End: 08-11-2022 Patient encounter procedure 08/11/2022 Office Visit Gastroenterology Erick Sonw, Antony Morgan, [address] [place] [address] [facility] Start: 07-07-2022 End: 07-07-2023 Complete blood count with white cell differential, automated CBC, EDIF, PLATELET Lab Routine Chronic hepatitis C without hepatic coma Expected: 07/07/2022, Expires: 07/07/2023 [facility] Comment on above: Expected: 07/07/2022, Expires: 3 Start: 07-07-2022 End: 07-07-2023 Comprehensive metabolic 2000 panel - Serum or Plasma COMPREHENSIVE METABOLIC PANEL Lab Routine Chronic hepatitis C without hepatic coma Expected: 07/07/2022, Expires: 07/07/2023 [facility] Comment on above: Expected: 07/07/2022, Expires: 3 Start: 07-07-2022 End: 07-07-2023 HBV REAL-TIME PCR, QUANT HBV REAL-TIME PCR, QUANT Lab Routine Hepatitis B core antibody positive Expected: 07/07/2022, Expires: 07/07/2023 [facility] Comment on above: Expected: 07/07/2022, Expires: 3 Start: 04-22-2022 Influenza vaccination [facility] Start: 07-07-2021 Microalbumin measurement, urine, quantitative Urine Microalbumin [facility] Start: 07-07-2021 Urine screening for protein Urine Microalbumin [facility] Start: 05-12-2021 End: 05-12-2021 Patient encounter procedure 05/12/2021 Office Visit Podiatry Felipe Molina DPM [address] [place] [address] [facility] Start: 04-22-2021 Influenza vaccination [facility] Start: 04-14-2021 End: 04-14-2021 Patient encounter procedure 04/14/2021 Office Visit Podiatry Felipe Molina DPM [address] [place] [address] [facility] Pod[facility] Start: 01-04-2021 HbA1c (Bld) [Mass fraction] A1C [facility] Start: 01-04-2021 Hemoglobin A1c measurement A1C [facility] Start: 11-05-2020 Creatinine monitoring Creatinine monitoring [facility] , [place] Start: 11-05-2020 Potassium monitoring Potassium monitoring [facility], [place] Start: 08-21-2020 End: 08-21-2020 Office Visit 08/21/2020 Office Visit Cardiology Gene Rebolledo MD [address] [place] [address] [phone] [facility] Start: 07-23-2020 End: 07-23-2020 Telemedicine 07/23/2020 Telemedicine Cardiology Merry Medrano CNP [address] [place] [address] [phone] [facility] Start: 07-22-2020 End: 07-22-2020 Office Visit 07/22/2020 Office Visit Family Medicine Palmer Givens PA [address] [place] [phone] [facility] Start: 07-14-2020 End: 07-14-2021 Complete blood count with white cell differential, automated CBC, EDIF, PLATELET Lab Routine Anemia, unspecified type Thrombocytopenia Expected: 07/14/2020, Expires: 07/14/2021 [facility] Comment on above: Expected: 07/14/2020, Expires: 1 Start: 07-14-2020 End: 07-14-2021 Comprehensive metabolic 2000 panel COMPREHENSIVE METABOLIC PANEL Lab Routine Chronic obstructive pulmonary disease with acute exacerbation Acute respiratory failure, unspecified whether with hypoxia or hypercapnia Atrial fibrillation, unspecified type Anemia, unspecified type Thrombocytopenia Elevated troponin Elevated brain natriuretic peptide (BNP) level Marijuana use Expected: 07/14/2020, Expires: 07/14/2021 [facility] Comment on above: Expected: 07/14/2020, Expires: 1 Start: 07-05-2020 HbA1c (Bld) [Mass fraction] A1C [facility] Start: 04-22-2020 Influenza vaccination INFLUENZA VACCINE (#1) [facility] Start: 04-22-2020 Influenza vaccination given [facility] Start: 02-06-2020 End: 02-06-2020 Follow-Up 02/06/2020 Follow-Up Sports Medicine Sofía Dukes MD [address] [place] [address] [phone] [facility] Start: 01-25-2020 End: 01-25-2020 Appointment [facility] Start: 01-25-2020 End: 01-25-2020 Home Care Visit 01/25/2020 Home Care Visit Home Health Services Harris Vargas RN [facility] Start: 01-24-2020 End: 01-24-2020 Home Care Visit 01/24/2020 Home Care Visit Home Health Services Jignesh Gilbert, PT [facility] Start: 01-23-2020 End: 01-23-2020 Follow-Up 01/23/2020 Follow-Up Sports Medicine Sofía Dukes MD [address] [place] [address] [phone] [facility] Start: 01-22-2020 End: 01-22-2020 Home Care Visit [facility] Start: 01-21-2020 End: 01-21-2020 Home Care Visit 01/21/2020 Home Care Visit Home Health Services Nisa Tavares, KELLY [facility] Start: 01-18-2020 End: 01-18-2020 Home Care Visit [facility] Start: 01-17-2020 End: 01-17-2020 Home Care Visit [facility] Start: 01-15-2020 End: 01-15-2020 Home Care Visit [facility] Start: 01-14-2020 End: 01-14-2020 Home Care Visit [facility] Start: 01-11-2020 End: 01-11-2020 Home Care Visit 01/11/2020 Home Care Visit Home Health Services Jessenia Salazar LPN [facility] Start: 01-10-2020 End: 01-11-2020 Home Care Visit [facility] Start: 01-09-2020 End: 01-09-2020 Appointment 01/09/2020 Appointment Home Health Services Pinky Brown RN [facility] Start: 01-09-2020 End: 01-09-2020 Home Care Visit 01/09/2020 Home Care Visit Home Health Services Jignesh Gilbert, PT [facility] Start: 01-08-2020 End: 01-08-2020 Hospital Encounter [facility] Comment on above: Primary osteoarthritis of right knee Right Total Knee Rep lacement Robotic Start: 01-05-2020 End: 01-05-2020 Office Visit 01/05/2020 Office Visit Lab [place]ía [place] [address] [phone] [facility] Start: 01-04-2020 End: 01-04-2020 Surgical Consult [facility] Start: 12-07-2019 End: 12-07-2019 Treatment 12/07/2019 Treatment Rehabilitation Lena Hill, [employer] [address] [place] [address] [place] [address] [phone] Do Parrish, PT [facility] Start: 12-06-2019 End: 12-06-2019 Hospital [facility] Comment on above: Primary osteoarthritis of right knee Right Total Knee Rep lacement Robotic Start: 12-05-2019 End: 12-05-2019 Treatment 12/05/2019 Treatment Rehabilitation Lena Hill ENVIRONMENTAL EMER[employer]CIES PL[employer]NER [address] [place] [address] [place] [address] [phone] Danisha Courtney, [facility] Start: 11-30-2019 End: 11-30-2019 Treatment 11/30/2019 Treatment Rehabilitation Lena Hill ENVIRONMENTAL EM[employer]CIES [employer]NER [address] [place] [address] [place] [address] [phone] Do Parrish, PT [facility] Start: 11-28-2019 End: 11-28-2019 Treatment 11/28/2019 Treatment Rehabilitation Lena Hill, ENVIRONMENTAL EMERGENCIES [employer]NER [address] [place] [address] [place] [address] Danisha Courtney, [facility] Start: 11-23-2019 End: 11-23-2019 Treatment 11/23/2019 Treatment Rehabilitation Lena Hill, ENVIRONMENTAL EMERGENCIES [employer]NER [address] [place] [address] [place] [address] Danisha Courtney [facility] Start: 11-21-2019 End: 11-21-2019 Treatment 11/21/2019 Treatment Rehabilitation Lena Hill, ENVIRONMENTAL EMERGENCIES PL[employer]NER [address] [place] [address] [place] [address] [phone] Danisha Courtney PTA [facility] Start: 11-20-2019 End: 11-20-2019 Surgical Consult 11/20/2019 Surgical Consult Sports Medicine Sofía Dukes [place] [address] [phone] [facility] Start: 11-16-2019 End: 11-16-2019 Treatment 11/16/2019 Treatment Rehabilitation Lena Hill CNP [address] [place] [address] [place] [address] [phone] Do Parrish, PT [facility] Start: 11-14-2019 End: 11-14-2019 Treatment 11/14/2019 Treatment Rehabilitation Lena Hill CNP [address] [place] [address] [place] [address] [phone] Danisha Courtney [facility] Start: 11-13-2019 End: 11-13-2019 Office Visit [facility] Preadmission Testing Start: 11-09-2019 End: 11-09-2019 Treatment 11/09/2019 Treatment Rehabilitation Lena Hill CNP [address] [place] [address] [place] [address] [phone] Do Parrish, PT [facility] Start: 11-07-2019 End: 11-07-2019 Treatment 11/07/2019 Treatment Rehabilitation Lena Hill, ENVIRONMENTAL [employer]CI[employer]NER [address] [place] [address] [place] [address] [phone] Christa Sanchez, PT [facility] Start: 11-06-2019 End: 11-06-2019 Office Visit 11/06/2019 Office Visit Cardiology Sofía Dukes MD [address] [place] [address] [phone] Jeff Minor MD [address] [place] [address] [phone] [facility] Start: 11-02-2019 End: 11-02-2019 Treatment 11/02/2019 Treatment Rehabilitation Lena Hill, ENVIRONMENTAL EMERGENCIES PLANNER [address] [facility] [address] [place] [address] [phone] Deborah Phillip, [facility] Start: 10-31-2019 End: 10-31-2019 Treatment 10/31/2019 Treatment Rehabilitation Lena Hill, ENVIRONMENTAL EM[employer]GENCIES PL[employer]NER [address] [facility]3] [address] [place] [address] Minesh Dejesus [facility] Start: 10-30-2019 End: 10-29-2020 Diagnostic radiography of chest, combined PA and lateral XR CHEST PA AND LATERAL Imaging Routine SOB (shortness of breath) on exertion Expected: 10/30/2019, Expires: 10/29/2020 [facility] Comment on above: Expected: 10/30/2019, Expires: 1 Start: 04-22-2019 Influenza vaccination [facility] Start: 04-22-2019 Influenza vaccination given SEQUENTIAL INFLUENZA VACCINE (#1) [facility] Start: 02-07-2019 Potassium [Moles/Vol] POTASSIUM [facility] Start: 02-07-2019 Prostate specific antigen measurement PROSTATE CANCER SCREENING DISCUSSION [facility] Start: 10-06-2018 End: 10-06-2018 Office Visit 10/06/2018 Office Visit Orthopedic Surgery Sb Andino MD [facility] [place] [address] [phone] [facility] Start: 08-08-2018 End: 08-08-2018 Ambulatory 08/08/2018 Office Visit Orthopedic Surgery Roe Davey MD [address] [facility] [address] [place] [address] [phone] [facility] Start: 08-04-2018 End: 08-04-2018 Ambulatory 08/04/2018 Office Visit Orthopedic Surgery Sb Andino MD [address] [facility] [place] [address] [phone] [facility] Start: 06-20-2018 End: 06-20-2018 Ambulatory 06/20/2018 Office Visit Sports Medicine Daniel Hammer MD [address] [place] [address] [phone] [facility] Start: 06-06-2018 End: 06-06-2018 Ambulatory 06/06/2018 Office Visit Sports Medicine Daniel Hammer MD [address] [place] [address] [phone] [facility] Start: 05-15-2018 End: 05-15-2018 Ambulatory 05/15/2018 Office Visit Orthopedic Surgery Sb Andino MD [address] [place] [address] [phone] [facility] Start: 05-02-2018 End: 05-02-2018 Ambulatory 05/02/2018 Office Visit Sports Medicine Daniel Hammer MD [address] [place] [address] [phone] [facility] Start: 04-22-2018 Influenza vaccination [facility] Start: 04-22-2018 Influenza vaccination given SEQUENTIAL INFLUENZA VACCINE (#1) [facility] Start: 04-13-2018 Ambulatory 04/13/2018 Hospital Encounter Sb Andino MD [address] [facility] [place] [address] [phone] [facility] Start: 04-11-2018 End: 04-11-2018 Ambulatory 04/11/2018 Office Visit Sports Medicine Paulino Rodrigues MD [address] [place] [address] [phone] Daniel Hammer MD [address] [place] [address] [phone] [facility] Start: 11-02-2017 HbA1c (Bld) [Mass fraction] A1C [facility] Start: 04-22-2017 Influenza vaccination SEQUENTIAL INFLUENZA VACCINE (#1) [facility] Work Phone: Start: 2016 Administration of herpes zoster vaccine Zoster Vaccines (1 of 2) [facility] Start: 2016 Colon cancer screen colonoscopy Colon cancer screen colonoscopy [place] Start: 2016 Colonoscopy [facility] Start: 2016 Protein mass conc COLON CANCER SCREENING DISCUSSION [facility] Start: 2016 RSV Vaccines (1 - Risk 50-74 years 1-dose series) RSV Vaccines (1 - Risk 50-74 years 1-dose series) [facility] Start: 2016 Screening for malignant neoplasm of colon [facility] Start: 2016 Shingles Vaccine (1 of 2) Shingles Vaccine (1 of 2) [place] Start: 2016 Zoster vaccine hzv live for subcutaneous use ZOSTER (SHINGLES) VACCINE (1 of 2) [facility] Start: 09-15-2015 Pneumococcal Vaccine: 50+ Years (2 of 2 - PCV) Pneumococcal Vaccine: 50+ Years (2 of 2 - PCV) [facility] Start: 09-15-2015 Pneumococcal Vaccine: Age 50+ (2 of 2 - PCV) Pneumococcal Vaccine: Age 50+ (2 of 2 - PCV) [facility] Start: 09-15-2015 Pneumococcal Vaccine: Ped or At-Risk (2 - PCV) Pneumococcal Vaccine: Ped or At-Risk (2 - PCV) [facility] Start: 09-15-2015 Pneumococcal Vaccine: Ped or At-Risk (2 of 2 - PCV) Pneumococcal Vaccine: Ped or At-Risk (2 of 2 - PCV) [facility] Start: 2011 Colonoscopy COLORECTAL CANCER SCREENING DISCUSSION [facility] Start: 2011 Screening for malignant neoplasm of colon COLORECTAL CANCER SCREENING DISCUSSION [facility] Start: 2006 Diabetes screen Diabetes screen [place], [place] Start: 2006 Lipid screen Lipid screen [place] Start: 1985 DTaP/Tdap/Td vaccine (1 - Tdap) DTaP/Tdap/Td vaccine (1 - Tdap) [facility] Start: 1985 Hepatitis A immunization Hepatitis A Vaccines (1 of 2 - Risk 2-dose series) [facility] Start: 1985 Hepatitis B vaccination Hepatitis B Vaccines (1 of 3 - 19+ 3-dose series) [facility] Start: 1985 Third diphtheria, tetanus and acellular pertussis (DTaP) vaccination TDAP (ADULT) [facility] Start: 1984 Hepatitis C antibody, confirmatory test Hepatitis C Screening [facility] Start: 1984 Hepatitis C screening Hepatitis C Screening [facility] Start: 1984 Tetanus vaccination TETANUS [facility] Start: 1982 COVID-19 Vaccine (1 of 2) COVID-19 Vaccine (1 of 2) [facility] Start: 1982 COVID-19 Vaccine (1) COVID-19 Vaccine (1) [facility] Start: 1981 HIV screen HIV screen [place] Start: 1981 HIV screening [facility] Start: 1979 HIV screening HIV SCREENING DISCUSSION [facility] Start: 1978 Adolescent depression screening assessment Depression Screening (PHQ9) [facility] Start: 1978 COVID-19 Vaccine (1) COVID-19 Vaccine (1) [facility] Start: 1978 Depression screening using PHQ-9 (Patient Health Questionnaire 9) score [facility] Start: 1976 Albumin DL <= 20 mg/L (U) [Mass/Vol] Urine Microalbumin [facility] Start: 1976 Diabetic foot examination [facility] Start: 1976 Glaucoma screening Diabetic Eye Exam [facility] Start: 1976 Ophthalmic examination and evaluation Ophthalmology Exam [facility] Start: 1976 Urine screening for protein Urine (micro)albumin/creatinine ratio - Diabetes [facility] Start: 1972 Pneumococcal 0-64 years Vaccine (1 of 1 - PPSV23) Pneumococcal 0-64 years Vaccine (1 of 1 - PPSV23) [facility] [place], [place] Start: 1972 Pneumococcal Vaccine: Ped or At-Risk (1 of 2 - PPSV23) Pneumococcal Vaccine: Ped or At-Risk (1 of 2 - PPSV23) [facility] Start: 1971 COVID-19 VACCINE (1) COVID-19 VACCINE (1) [facility] Start: 1969 History and physical examination, annual for health maintenance Wellness Visit [facility] Start: 1969 Medicare Wellness Visit Medicare Wellness Visit [facility] Start: 1967 [id number]-rtmmods vaccination MMR Vaccines (1 of 1 - Standard series) [facility] Start: 01-09-1967 COVID-19 VACCINE (#1) COVID-19 VACCINE (#1) [facility] Start: 1966 Depression screening using PHQ-9 (Patient Health Questionnaire 9) score Depression Screening (PHQ9) [facility] Start: 1966 Hepatitis B vaccination HEP B VACCINE (1 of 3 - 3-dose series) [facility] Start: 1966 Hepatitis C antibody, confirmatory test HEPATITIS C VIRUS SCREENING [facility] Start: 1966 Prostate specific antigen measurement PSA Level [facility] Start: 1966 Protein mass conc COLONOSCOPY [facility] Start: 1966 Screening colonoscopy COLONOSCOPY [facility] Work Phone: Start: 1966 Screening for malignant neoplasm of colon [facility] Start: 1966 Tetanus vaccination [facility] End: 04-21-2022 Aerobic microbial culture Wound Aerobic Culture Microbiology Routine Once for 1 Occurrences starting 04/21/2022 until 04/21/2022 [facility] Work Phone: Comment on above: Once for 1 Occurrences starting 04/21/20 until 04/21/2022 Aerobic microbial culture Wound Aerobic Culture Microbiology Routine Ulcer of left lower extremity with fat layer exposed (HCC) 07/15/2023 8:44 AM EST [facility] Work Phone: Aerobic microbial culture Wound Aerobic Culture Microbiology Routine Ulcer of left lower extremity with fat layer exposed (HCC) 07/29/2023 1:45 PM EST [facility] Work Phone: ANCA INIT SCRN (ANCA , PR3AB, MPO) ANCA INIT SCRN (ANCA, PR3AB, MPO) Lab Today 11/14/2021 10:17 AM EDT [facility] Angiotensin converti ng enzyme [Enzymatic activity/volume] in Serum or Plasma ANGIOTENSIN CONVERTING ENZYME Lab Today 11/14/2021 10:17 AM EDT [facility] End: 07-03-2024 Aspergillus Galactomannan Antigen [facility] Comment on above: Once for 1 Occurrences starting 07/03/20 until 07/03/2024 End: 07-08-2020 Bacteria identified Aer cx Nom (Sput) Sputum Aerobic Culture Microbiology Routine Once for 1 Occurrences starting 07/08/2020 until 07/08/2020 [facility] Comment on above: Once for 1 Occurrences starting 07/08/20 until 07/08/2020 Bacteria identified Aer cx Nom (Sput) Sputum Aerobic Culture Microbiology Routine 12/03/2020 5:49 PM EDT [facility] Bacteria identified Cx Nom (Bld) [facility] Bacteria identified in Blood by Culture [facility] Bacteria identified in Blood by Culture [facility] Work Phone: End: 02-26-2023 Bacteria identified in Blood by Culture [facility] Comment on above: One Time for 1 Occurrences starting 03/2023 until 02/26/2023 Bacteria identified in Blood by Culture Blood Culture Aerobic/Anaerobic Microbiology [facility] 04/02/2025 1:31 PM EDT [facility] Work Phone: Bacteria identified in Blood by Culture Blood Culture Aerobic/Anaerobic Microbiology [facility] 05/11/2025 8:53 PM EDT [facility] Work Phone: End: 07-05-2024 Bacteria identified in Sputum by Aerobe culture Sputum Aerobic Culture Microbiology Routine Once for 1 Occurrences starting 07/05/2024 until 07/05/2024 [facility] Comment on above: Once for 1 Occurrences starting 07/05/20 until 07/05/2024 End: 04-20-2022 Bacteria identified in Unspecified specimen by Aerobe culture [facility] Work Phone: Comment on above: Once for 1 Occurrences starting 04/20/20 until 04/20/2022 Bacterial culture an d sensitivity CULTURE WOUND Microbiology Today Venous stasis ulcer of right lower leg with edema of right lower leg Chronic venous insufficiency Lymphedema 12/28/2022 2:20 PM EDT [facility] End: 11-07-2019 Basic Metabolic Panel w/ Reflex to MG Basic Metabolic Panel w/ Reflex to MG Lab Routine Tomorrow AM for 1 Occurrences starting 11/07/2019 until 11/07/2019 [facility] Tomorrow AM for 1 Occurrences starting 0 11/07/2019 until 11/07/2019 Body Fluid Aerobic & Anaerobic Culture Body Fluid Aerobic & Anaerobic Culture Microbiology Routine Effusion of right knee Synovitis Abscess of knee, right History of total right knee replacement 05/09/2025 2:39 PM ED [facility] Work Phone: End: 05-09-2026 Body Fluid Aerobic & Anaerobic Culture Body Fluid Aerobic & Anaerobic Culture Microbiology Routine Effusion of right knee Synovitis Abscess of knee, right History of total right knee replacement 1 Occurrences starting 05/09/2025 until 05/09/2026 [facility] Work Phone: Comment on above: 1 Occurrences starting 05/09/2025 until 05/09/2026 Body Fluid Aerobic & Anaerobic Culture [facility] Work Phone: Comment on above: Ordered: 05/09/2025 CARDIOLIPIN AB (IGG, IGA, IGM) CARDIOLIPIN AB (IGG, IGA, IGM) Lab Today 11/14/2021 1:53 PM T [facility] End: 11-07-2019 CBC auto differential CBC auto differential Lab Routine Tomorrow AM for 1 Occurrences starting 11/07/2019 until 11/07/2019 [facility] Comment on above: Tomorrow AM for 1 Occurrences starting 0 11/07/2019 until 11/07/2019 Change of dressing SC DRESSING C HANGE SC - OFFICE PERFORMED Routine Venous stasis ulcer of right lower leg with edema of right lower leg Chronic venous insufficiency Ordered: 11/16/2022 [employer] [facility] Comment on above: Ordered: 11/16/2022 Change of dressing SC DRESSING C HANGE SC - OFFICE PERFORMED Routine Venous stasis ulcer of right lower leg with edema of right lower leg Chronic venous insufficiency Lymphedema Ordered: 11/23/2022 [facility] Comment on above: Ordered: 11/23/2022 Change of dressing SC DRESSING C HANGE SC - OFFICE PERFORMED Routine Venous stasis ulcer of right lower leg with edema of right lower leg Chronic venous insufficiency Ordered: 11/30/2022 [facility] Comment on above: Ordered: 11/30/2022 Change of dressing SC DRESSING C HANGE SC - OFFICE PERFORMED Routine Venous stasis ulcer of right lower leg with edema of right lower leg Chronic venous insufficiency Lymphedema Ordered: 12/14/2022 [facility] Comment on above: Ordered: 12/14/2022 Change of dressing SC DRESSING C HANGE SC - OFFICE PERFORMED Routine Venous stasis ulcer of right lower leg with edema of right lower leg Chronic venous insufficiency Lymphedema Ordered: 12/21/2022 [facility] Comment on above: Ordered: 12/21/2022 Change of dressing SC DRESSING C HANGE SC - OFFICE PERFORMED Routine Venous stasis ulcer of right lower leg with edema of right lower leg Chronic venous insufficiency Lymphedema Ordered: 12/28/2022 [facility] Comment on above: Ordered: 12/28/2022 Change of dressing SC DRESSING C HANGE SC - OFFICE PERFORMED Routine Venous stasis ulcer of right lower leg with edema of right lower leg Chronic venous insufficiency Ordered: 01/18/2023 [facility] Comment on above: Ordered: 01/18/2023 Change of dressing SC DRESSING C HANGE SC - OFFICE PERFORMED Routine Venous stasis ulcer of right lower leg with edema of right lower leg Chronic venous insufficiency Lymphedema Foot mass, right Ordered: 01/25/2023 [facility] Comment on above: Ordered: 01/25/2023 Change of dressing SC DRESSING C HANGE SC - OFFICE PERFORMED Routine Venous stasis ulcer of right lower leg with edema of right lower leg Chronic venous insufficiency Lymphedema Foot mass, right Ordered: 02/08/2023 [facility] Comment on above: Ordered: 02/08/2023 Change of dressing SC DRESSING C HANGE SC - OFFICE PERFORMED Routine Venous stasis ulcer of right lower leg with edema of right lower leg Chronic venous insufficiency Lymphedema Ordered: 02/15/2023 [facility] Comment on above: Ordered: 02/15/2023 Change of dressing SC DRESSING C HANGE SC - OFFICE PERFORMED Routine Pressure ulcer of right foot, stage 3 Venous stasis ulcer of right lower leg with edema of right lower leg Lymphedema Chronic venous insufficiency Venous stasis ulcer of left lower leg with edema of left lower leg Ordered: 04/26/2023 [facility] Comment on above: Ordered: 04/26/2023 End: 03-08-2019 CRP, Inflammation CRP, Inflammation Routine Arthralgia, unspecified joint 1 Occurrences starting 03/07/2018 until 03/08/2019 [facility] CRYOGLOBULIN CRYOGLOBULIN Lab Today 11/15/2021 4:[address] [facility] End: 03-31-2019 CT Foot Right Without Contrast CT Foot Right Without Contrast Routine Arthritis of foot, right Acquired pes planovalgus, right 1 Occurrences starting 03/31/2018 until 03/31/2019 [facility] End: 11-06-2019 Culture, Blood 1 Culture, Blood 1 Microbiology STAT One Time for 1 Occurrences starting 11/06/2019 until 11/06/[facility] on above: One Time for 1 Occurrences starting 10/20 until 11/06/2019 Culture, Blood 1 Culture, Blood 1 Microbiology STAT [facility]: 11-06-2019 Culture, Blood 2 Culture, Blood 2 Microbiology STAT One Time for 1 Occurrences starting 11/06/2019 until 11/06/2019 [facility] Comment on above: One Time for 1 Occurrences starting 10/20 until 11/06/2019 Culture, Blood 2 Culture, Blood 2 Microbiology Stat [employer] Label print 11/06/2019 2:10 [facility] Culture, Respiratory Culture, Re spiratory Microbiology Stat [employer] Label print 11/06/2019 5:00 [facility] CYCLIC CITRULLINATE PEPTIDE AB CYCLIC CITRULLINATE PEPTIDE AB Lab Today 11/14/2021 4:[address] [facility] End: 03-08-2019 Cyclic citrullinated peptide antibody CCP Antibody Routine Arthralgia, unspecified joint 1 Occurrences starting 03/07/2018 until 03/08/2019 [facility] End: 03-30-2021 Diagnostic radiography of toes XR TOE 1ST RIGHT Imaging Routine One Time for 1 Occurrences starting 03/30/2021 until 03/30/2021 [facility] Work Phone: Comment on above: One Time for 1 Occurrences starting 04/2021 until 03/30/2021 End: 03-[address] [place] [address] Comment on above: One Time for 1 Occurrences starting 10/21 until 11/13/2021 End: 03-08-2019 Erythrocyte sedimentation rate Sedimentation Rate Routine Arthralgia, unspecified joint 1 Occurrences starting 03/07/2018 until 03/08/2019 [facility] FUNGITELL ASSAY FUNGITELL ASSAY Lab Today 11/14/2021 10:[address] [facility] End: 07-03-2024 Fungus serologic study [facility] Work Phone: Comment on above: Once for 1 Occurrences starting 07/03/20 until 07/03/2024 HAPTOGLOBIN HAPTOGLOBIN Lab Today 11/14/2021 1:[address] [facility] Hepatitis A virus Ig M Ab [Presence] in Serum or Plasma by Immunoassay HEPATITIS A IGM AB Lab Today 11/14/2021 4:[address] [facility] Comment on above: Every 4hr while awake until discontinued starting 11/06/2019 Every 2hr As Needed until discontinued starting 11/06/2019 End: 07-03-2024 Histoplasma Ab CompFix/ImmDiff, Serum Histoplasma Ab CompFix/ImmDiff, Serum Lab Routine Once for 1 Occurrences starting 07/03/2024 until 07/03/2024 [facility] Comment on above: Once for 1 Occurrences starting 07/03/20 until 07/03/2024 MARINA AND PE, SERUM MARINA AND PE, SE RUM Lab Today 11/14/2021 10:[address] [facility] Initiate Oxygen Ther [facility]y [facility] Comment on above: Daily until discontinued starting 2019, 2 completed Daily until disconti nued starting 11/06/2019 End: 07-05-2024 Legionella antigen assay Legionella Antigen, Urine Microbiology Routine Once for 1 Occurrences starting 07/05/2024 until 07/05/2024 [facility] Comment on above: Once for 1 Occurrences starting 07/05/20 until 07/05/2024 M TUBERCULOSIS BY QUANTIFERON, BLD M TUBERCULOSIS BY QUANTIFERON, BLD Lab Today 11/14/2021 10:[address] [facility] End: 07-05-2024 Microbial culture, body fluid [facility] Work Phone: Comment on above: Once for 1 Occurrences starting 07/05/20 until 07/05/2024 Procedure on tissue specimen [facility] Comment on above: Release Upon Ordering for 1 Occurrences starting 01/08/2020, 1 completed Pulse Oximetry Spot Check Pulse Oximetry Spot Check Respiratory Care Routine Every 8hr until discontinued starting 11/06/2019 [facility] Comment on above: Every 8hr until discontinued starting End: 07-05-2024 Respiratory pathogens DNA and RNA panel - Nasopharynx by HERMAN with non-probe detection Respiratory PCR Panel Microbiology Routine Once for 1 Occurrences starting 07/05/2024 until 07/05/2024 [facility] Comment on above: Once for 1 Occurrences starting 07/05/20 until 07/05/2024 End: 03-08-2019 Rheumatoid factor Rheumatoid factor Routine Arthralgia, unspecified joint 1 Occurrences starting 03/07/2018 until 03/08/2019 [facility] Rmvl prosth tot knee prosth mma w/wo insj spacer ARTHROTOMY KNEE WITH SPACER INSERTION Abscess of knee, right History of total right knee replacement [facility] [place] Serum immunofixation Immunofixat ion, Serum Lab Routine 07/08/2020 4:42 PM EST [facility] End: 11-06-2019 Sputum induction Sputum induction Respiratory Care Routine One Time for 1 Occurrences starting 11/06/2019 until 11/06/2019 [facility] Comment on above: One Time for 1 Occurrences starting 10/20 until 11/06/2019 Standard ECG ECG ECG STAT 7:16 PM EDT [facility] End: 03-16-2023 Standard ECG ECG ECG STAT One Time for 1 Occurrences starting 03/16/2023 until 03/16/2023 [facility] Work Phone: Comment on above: One Time for 1 Occurrences starting 02/20 until 03/16/2023 Strapping unna boot SC APPLY OF UNNA BOOT SC - OFFICE PERFORMED Routine Venous stasis ulcer of right lower leg with edema of right lower leg Chronic venous insufficiency Ordered: 11/16/2022 [facility] Comment on above: Ordered: 11/16/2022 Strapping unna boot SC APPLY OF UNNA BOOT SC - OFFICE PERFORMED Routine Venous stasis ulcer of right lower leg with edema of right lower leg Chronic venous insufficiency Ordered: 11/30/2022 [facility] Comment on above: Ordered: 11/30/2022 Strapping unna boot SC APPLY OF UNNA BOOT SC - OFFICE PERFORMED Routine Venous stasis ulcer of right lower leg with edema of right lower leg Chronic venous insufficiency Lymphedema Ordered: 12/14/2022 [facility] Comment on above: Ordered: 12/14/2022 Strapping unna boot SC APPLY OF UNNA BOOT SC - OFFICE PERFORMED Routine Venous stasis ulcer of right lower leg with edema of right lower leg Chronic venous insufficiency Lymphedema Ordered: 12/21/2022 [facility] Comment on above: Ordered: 12/21/2022 Strapping unna boot SC APPLY OF UNNA BOOT SC - OFFICE PERFORMED Routine Venous stasis ulcer of right lower leg with edema of right lower leg Chronic venous insufficiency Lymphedema Ordered: 12/28/2022 [facility] Comment on above: Ordered: 12/28/2022 Strapping unna boot SC APPLY OF UNNA BOOT SC - OFFICE PERFORMED Routine Venous stasis ulcer of right lower leg with edema of right lower leg Chronic venous insufficiency Ordered: 01/18/2023 [facility] Comment on above: Ordered: 01/18/2023 Strapping unna boot SC APPLY OF UNNA BOOT SC - OFFICE PERFORMED Routine Venous stasis ulcer of right lower leg with edema of right lower leg Chronic venous insufficiency Lymphedema Foot mass, right Ordered: 01/25/2023 [facility] Comment on above: Ordered: 01/25/2023 Strapping unna boot SC APPLY OF UNNA BOOT SC - OFFICE PERFORMED Routine Venous stasis ulcer of right lower leg with edema of right lower leg Chronic venous insufficiency Lymphedema Ordered: 02/15/2023 [facility] Comment on above: Ordered: 02/15/2023 End: 07-05-2024 Streptococcus pneumoniae antigen assay S. pneumoniae Urine Antigen Microbiology Routine Once for 1 Occurrences starting 07/05/2024 until 07/05/2024 [facility] Comment on above: Once for 1 Occurrences starting 07/05/20 until 07/05/2024 Surgical Site Aerobi c & Anaerobic Culture [facility] Work Phone: Surgical Site Aerobi c Culture Surgical Site Aerobic Culture Microbiology Routine Primary osteoarthritis of right knee 01/08/2020 7:42 AM EDT [facility] Surgical Site Anaero bic Culture [facility] Comment on above: Release Upon Ordering for 1 Occurrences starting 01/08/2020 Thalassemia and Hemoglobinopathy Profile Thalassemia and Hemoglobinopathy Profile Lab Routine 07/08/2020 4:42 PM [facility] Transthoracic echocardiography ECHOCARDIOGRAM Echocardiography Routine Essential hypertension SOB (shortness of breath) on exertion Leg edema Ordered: 10/30/2019 [facility] Comment on above: Ordered: 10/30/2019 End: 03-08-2019 Uric Acid Uric Acid Routine Arthralgia, unspecified joint 1 Occurrences starting 03/07/2018 until 03/08/2019 [facility] Urine immunofixation Immunofixat ion, Urine Lab Routine 07/08/2020 4:42 PM EST [facility] End: 11-07-2019 Vancomycin, trough Vancomycin, trough Lab Timed One Time for 1 Occurrences starting 11/07/2019 until 11/07/2019 [place] Comment on above: One Time for 1 Occurrences starting 10/20 until 11/07/2019 Wound Aerobic And Anaerobic Culture Wound Aerobic And Anaerobic Culture Microbiology Routine 05/12/2025 1:55 AM EDT [facility] X-ray of left foot XR Foot Left 3+ Views (Standard) Imaging Routine Pain 04/22/2020 2:18 PM EDT [facility] End: 03-07-2019 XR Ankle Right 3+ Views (Standard) XR Ankle Right 3+ Views (Standard) Routine Arthralgia, unspecified joint 1 Occurrences starting 03/07/2018 until 03/07/2019 [facility] XR Chest PA and Abdo men AP XR Chest 1 View Imaging Routine 04/05/2025 10:34 AM EDT [facility] Work Phone: XR Clavicle Right XR Clavicle Ri ght Imaging JENNY 02/02/2021 4:05 PM EDT [facility] End: 03-07-2019 XR Foot Right 3+ Views (Standard) XR Foot Right 3+ Views (Standard) Routine Arthralgia, unspecified joint 1 Occurrences starting 03/07/2018 until 03/07/2019 [facility] End: 03-07-2019 XR Hip Right With Pelvis 2-3 Views (Routine) XR Hip Right With Pelvis 2-3 Views (Routine) Routine Arthralgia, unspecified joint 1 Occurrences starting 03/07/2018 until 03/07/2019 [facility] End: 03-07-2019 XR Knee Right 3 Views (Specify Views in Comments) XR Knee Right 3 Views (Specify Views in Comments) Routine Arthralgia, unspecified joint 1 Occurrences starting 03/07/2018 until 03/07/2019 [facility] End: 10-18-2025 XR Thoracic spine 3 Views XR Thoracic Spine 3 Views (Standard) Imaging Routine Compression fracture of T7 vertebra, initial encounter ([facility]) 1 Occurrences starting 10/18/2024 until 10/18/2025 [facility] Work Phone: Comment on above: 1 Occurrences starting 10/18/2024 until 10/18/2025 Immunizations Immunization Date Immunization Notes Care Provider Jessica [email or web address] 02-26-2023 tetanus toxoid, reduced diphtheria toxoid, and acellular pertussis vaccine, adsorbed Shai Leonard MD Work Phone: [facility] 09-15-2014 influenza virus vaccine, unspecified formulation Shai Leonard MD Work Phone: [facility] NEGATED: Highlighted row has not occurred!01-09-2024 influenza, seasonal, injectable Patient objection Dr. Reg Hartman [facility] NEGATED: Highlighted row has not occurred!01-09-2024 Pneumococcal conjugate vaccine 20-valent (PCV20), polysaccharide [id number] conjugate, adjuvant, preservative free Patient objection Dr. Reg Hartman [facility] NEGATED: Highlighted row has not occurred!01-09-2024 SARS-COV-2 (COVID-19) vaccine, mRNA, spike protein, LNP, preservative free, 25 mcg/0.25 mL dose Patient objection Dr. Reg Hartman [facility] Payers Date Payer Category Payer Medicare HMO ANTHEM MEDIBLUE ESSENTIAL/PLUS/CONNECT/SNP HMO [id number] 2022 Medicare [id number] 2021 Unknown [id number] 2020 Medicaid [id number] 1.2.840.302454.1.13.385.2.7.3. [id number] 2020 Medicaid [id number]. 1.13.172.2.7.3. 351591.315 2020 Medicare [id number] 1.2.840.330468.1.13.385.2.7.3. [id number] 2020 Medicare 1.2.840.529253. 1.13.172.2.7.3. 725263.315 2020 Medicaid [id number] 2020 Medicare [id number] 2013 Medicaid [id number] 1.2.840.887770.1.13.385.2.7.3. [id number] 2013 Medicaid [id number] 1.2.840.869423.1.13.385.2.7.3. 645084.315 2013 Medicaid [id number] 2.16.840.1.183627.3.249.13 1966 Unknown [id number] 2.16.840.1.532884.3.579.2.174 1966 Unknown [id number] 2.16.840.1.352502.3.579.2.174 1966 Unknown [id number] 2.16.840.1.991778.3.579.2.174 1966 Unknown [id number] 2.16.840.1.927524.3.579.2.903 1966 Unknown [id number] 2.16.840.1.643574.3.579.2.903 1966 Unknown [id number] 2.16.840.1.267893.3.579.2.903 1966 Unknown [id number] 2.16.840.1.103127.3.579.2.903 1966 Unknown [id number] 2.16.840.1.282301.3.579.2.174 1966 Unknown [id number] 2.16.840.1.466395.3.579.2.983 1966 Unknown [id number] 2.16.840.1.051900.3.579.2.983 1966 Unknown [id number] 2.16.840.1.763789.3.579.2.983 1966 Unknown [id number] 2.16.840.1.686380.3.579.2.983 1966 Unknown [id number] 2.16.840.1.472127.3.579.2.983 1966 Unknown [id number] 2.16.840.1.773794.3.579.2.983 1966 Unknown [id number] 2.16.840.1.286767.3.579.2.983 1966 Unknown [id number] 2.16.840.1.249331.3.579.2.983 1966 Unknown [id number] 2.16.840.1.535158.3.579.2.983 1966 Unknown [id number] 2.16.840.1.385853.3.579.2.983 1966 Unknown [id number] 2.16.840.1.592002.3.579.2.983 1966 Unknown [id number] 2.16.840.1.322701.3.579.2.983 1966 Unknown [id number] 2.16.840.1.335066.3.579.2.983 1966 Unknown [id number] 2.16.840.1.695543.3.579.2.983 1966 Unknown [id number] 2.16.840.1.037480.3.579.2.983 1966 Unknown [id number] 2.16.840.1.567749.3.579.2.983 1966 Unknown [id number] 2.16.840.1.903013.3.579.2.983 1966 Unknown [id number] 2.16.840.1.062033.3.579.2.983 1966 Unknown [id number] 2.16.840.1.786414.3.579.2.983 1966 Unknown [id number] 2.16.840.1.739814.3.579.2.983 1966 Unknown [id number] 2.16.840.1.761081.3.579.2.983 1966 Unknown [id number] 2.16.840.1.445446.3.579.2.983 1966 Unknown [id number] 2.16.840.1.263159.3.579.2.983 1966 Unknown [id number] 2.16.840.1.393845.3.579.2.983 1966 Unknown [id number] 2.16.840.1.167024.3.579.2.983 1966 Unknown [id number] 2.16.840.1.597066.3.579.2.983 1966 Unknown [id number] 2.16.840.1.006979.3.579.2.983 1966 Unknown [id number] 2.16.840.1.378130.3.579.2.983 1966 Unknown [id number] 2.16.840.1.446406.3.579.2.983 1966 Unknown [id number] 2.16.840.1.862637.3.579.2.983 1966 Unknown [id number] 2.16.840.1.569661.3.579.2.983 1966 Unknown [id number] 2.16.840.1.472803.3.579.2.983 1966 Unknown [id number] 2.16.840.1.508308.3.579.2. 1966 Unknown [id number] 2.16.840.1.646650.3.579.2.983 1966 Unknown [id number] 2.16.840.1.017288.3.579.2.98 1966 Unknown [id number] 2.16.840.1.872710.3.579.2.983 1966 Unknown [id number] 2.16.840.1.107333.3.579.2.3 1966 Unknown [id number] 2.16.840.1.155858.3.579.2.983 1966 Unknown [id number] 2.16.840.1.591473.3.579.2.983 1966 Unknown [id number] 2.16.840.1.075424.3.579.2.983 1966 Unknown [id number] 2.16.840.1.554010.3.579.2.983 1966 Unknown [id number] 2.16.840.1.061120.3.579.2.983 1966 Unknown [id number] 2.16.840.1.349099.3.579.2.983 1966 Unknown [id number] 2.16.840.1.300260.3.579.2.983 1966 Unknown [id number] 2.16.840.1.835172.3.579.2 1966 Unknown [id number] 2.16.840.1.855341.3.579.2.90 1966 Unknown [id number] 2.16.840.1.669634.3.579.290 1966 Unknown [id number] 2.16.840.1.981910.3.579.290 1966 Unknown [id number] 2.16.840.1.408326.3.579.298 1966 Unknown [id number] 2.16.840.1.718976.3.579.2 1966 Unknown [id number] 2.16.840.1.999511.3.579.2 1966 Unknown [id number] 2.16.840.1.534694.3.579.2.900 1966 Unknown [id number] 2.16.840.1.949163.3.579.2900 1966 Unknown [id number] 2.16.840.1.865484.3.579.290 1966 Unknown [id number] 2.16.840.1.538920.3.579.2 1966 Unknown [id number] 2.16.840.1.460001.3.579.2.90 1966 Unknown [id number] 2.16.840.1.360016.3.579.2 1966 Unknown [id number] 2.16.840.1.902445.3.579.2.90 1966 Unknown [id number] 2.16.840.1.431947.3.579.2903 1966 Unknown [id number] 2.16.840.1.643248.3.579.2.903 1966 Unknown [id number] 2.16.840.1.004791.3.579.2.903 1966 Unknown [id number] 2.16.840.1.973149.3.579.2.90 1966 Unknown [id number] 2.16.840.1.396054.3.579.2.90 1966 Unknown [id number] 2.16.840.1.926136.3.579.2. 1966 Unknown [id number] 2.16.840.1.271731.3.579.2.90 1966 Unknown [id number] 2.16.840.1.819551.3.579.2.90 1966 Unknown [id number] 2.16.840.1.932897.3.579.2.903 1966 Unknown [id number] 2.16.840.1.804805.3.579.2. 1966 Unknown [id number] 2.16.840.1.125204.3.579.2.903 1966 Unknown [id number] 2.16.840.1.175702.3.579.2.90 1966 Unknown [id number] 2.16.840.1.914929.3.579.2.903 Social History Date Type Detail Facility Start: 01-25-2017 End: 01-02-2025 Tobacco smoking status HIIS Former smoker [facility] Start: 08-22-1984 End: 09-27-2011 History of tobacco use Current smoker [employer] Phone: History of tobacco use [employer] Phone: Start: 1965 Sex Assigned At Not on file [employer] Phone: Start: 08-22-1984 End: 08-22-2007 History of tobacco use Cigarette Smoker [facility] Start: 04-05-2019 End: 05-12-2025 Alcohol intake Not Currently [facility] Start: 09-21-2019 End: 01-15-2021 Alcohol intake Current non-drinker of alcohol (finding) [facility] Start: 09-27-2021 End: 03-16-2023 Exposure to SARS-CoV-2 (event) Not sure [facility] Start: 10-30-2019 End: 06-20-2025 Alcohol intake Ex-drinker (finding) [facility] History of tobacco use Snuff User [facility] [place]- [place] [place] Start: 04-22-2020 End: 01-02-2025 Tobacco use and exposure Current user [facility] Start: 07-07-2020 End: 12-03-2020 History SDOH Alcohol Frequency 1 [facility] Exposure to SARS-CoV -2 (event) Unable to assess [facility] Start: 05-03-2022 History SDOH Alcohol Comment quit drinking aprox 2011 [facility] [employer] Work Phone: Start: 02-08-2023 End: 05-12-2025 History of Social function [facility] Start: 05-17-2017 Gender identity Identifies as male gender (finding) [facility] How often to you hav e a drink containing alcohol? Never [facility] Average Number of Drinks Not on file [facility] Start: 06-14-2018 Sexual orientation Heterosexual (finding) [facility] History of tobacco use [facility]ive smoker [facility] How hard is it for y ou to pay for the very basics like food, housing, medical care, and heating Not very hard [facility] (I/We) worried wheth er (my/our) food would run out before (I/we) got money to buy more. Never true [facility] In the past 12 month s, was there a time when you were not able to pay the mortgage or rent on time? No [facility] Start: 05-22-2024 Unknown if ever smoked [employer] (I/We) worried wheth er (my/our) food would run out before (I/we) got money to buy more. Sometimes true [facility] Medical Equipment Procedure Code Equipment Code Equipment Origin al Text Equipment Identifier Dates Baseplate Sz5 Ti bial Tritanium Triathlon - [id number] , [id number]_[facility] FDA Start: 01-08-2020 Insert Sz5-10 Ti bial Cr X3 Triathlon [id number]-[id number]-[id number] - [id number] ()[id number] [id number], [id number]_[facility] FDA Start: 01-08-2020 Component Sz5 Fe m Cr Rt Cementless Beaded W/Pa Triathlon - [id number] ()[id number] [id number], [id number] FDA Start: 01-08-2020 ()[id number] [id number], [id number]_[facility] FDA Start: 01-08-2020 Goals Date Patient Goal Desired Activity /State Personal health goal Comment on above: Formatting of this n ote might be different from the original. Short Term Goals 1. Pt will be independent with self manual lymphatic drainage and HEP to maintain progress toward functional goals. 2. Pt will acquire increased knowledge of lymphedema risk factors and prevention including demonstrated compliance with wearing compression garments and elevating legs to better manage edema. Blood Bank Order Control Clerk Goals 3. Reduce LE edema as demontrated by decrease in LE girth by 2-4 cm to facilitate improved gait patterning (improved step length, toe clearance) to reduce risk for falls and to increase ambulation tolerance for community access. 4. Pt will report decreased difficulty with lifting legs into bed as a result of decrease LE edema. Formatting of this n ote might be different from the original. Short Term Goals (re-assessed 02/15/23) 1. Pt will be independent with self manual lymphatic drainage and HEP to maintain progress toward functional goals. Progressing - living situation not stable right now so compliance has been difficult. 2. Pt will acquire increased knowledge of lymphedema risk factors and prevention including demonstrated compliance with wearing compression garments and elevating legs to better manage edema. (Pt has unna boot application for compression which stay on for 1 week, then removed and reapplied same appointment) Care Home Goals 3. Reduce LE edema as demontrated by decrease in LE girth by 2-4 cm to facilitate improved gait patterning (improved step length, toe clearance) to reduce risk for falls and to increase ambulation tolerance for community access. (Progressing: most LE girth measurements show significant reduction in edema and pt reports improved walking tolerance. Pt still demonstrates limited toe clearance, WBOS and limited step length in part due to knee pain and unrelated (to lymphedema) wound on R foot) 4. Pt will report decreased difficulty with lifting legs into bed as a result of decrease LE edema. (goal met, no difficulty lifting legs into bed) Comment on above: Formatting of this n ote might be different from the original. Short Term Goals 1. Pt will be independent with self manual lymphatic drainage and HEP to maintain progress toward functional goals. 2. Pt will acquire increased knowledge of lymphedema risk factors and prevention including demonstrated compliance with wearing compression garments and elevating legs to better manage edema. Blood Bank Order Control Clerk Goals 3. Reduce LE edema as demontrated by decrease in LE girth by 2-4 cm to facilitate improved gait patterning (improved step length, toe clearance) to reduce risk for falls and to increase ambulation tolerance for community access. 4. Pt will report decreased difficulty with lifting legs into bed as a result of decrease LE edema. Clinical Notes 02-02-2021 to 07-04-2025 Quick Note - Radha Buckner RN - 05/16/2025 2:35 PM EDTQuick Note - Radha Buckner RN - 05/16/2025 2:35 PM EDTQuick Note - Kathleen Dunham CNP - 05/16/2025 9:02 AM EDTPatient Instructions Note Date & Type Note Facility 07-04-2025 Note [facility] 07-03-2025 Note [facility] 07-03-2025 Note [facility] 07-03-2025 Note [facility] 07-02-2025 Note [facility] 07-02-2025 Note [facility] 07-02-2025 Note [facility] 07-01-2025 Note CULTURE Culture in Progress GRAM STAIN RESULT Many WBC Many RBC No Organisms Seen [facility] Comment on above: Performed By: #### L [id number] ####[facility] [address], [place] [address] Venancio Richardson M.D. [id number] 07-01-2025 Note CULTURE Culture in Progress GRAM STAIN RESULT Many WBC Many RBC No Organisms Seen [facility] Comment on above: Performed By: #### L [id number] ####[facility] [address], [place] [address] Venancio Richardson M.D. [id number] 07-01-2025 Note [facility] 06-20-2025 Note At this point in hanna e Carmen Gilman comes in today. 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 I have recommended to him that we proceed forward with a resection arthroplasty. The gentleman refused that in the past. We tried to salvage this knee. However, the infection is significant. Today he is awake, alert and oriented x3. He has a large fungating subcutaneous abscess laterally, has a moderate knee effusion. Extensor mechanism appears intact. IMPRESSION Septic right total knee replacement. PLAN I have at this point in time recommended a resection arthroplasty with antibiotic impregnated cement spacer. He wants to think about it. Likely will proceed forward with the surgery. I have talked to him about all risks and complications. We will proceed forward with this procedure when he comes to the conclusion that he is ready for it. I have encouraged him that we need to do this sooner rather than later. AUTHENTICATED BY SOFÍA DUKES, ON 06/21/2025 09:06:26 [facility] 05-30-2025 Note Carmen comes in today for followup of his right knee. If you will recall, Carmen is a gentleman who has had multiple surgeries on his right lower extremity for debridement as well as irrigations, developed a painful swollen right knee. We did an irrigation and debridement of this abscess on the right knee with a wound closure. We did an aspiration of the knee. The aspiration of the knee showed no culture. No infection in the knee. He comes in today 2 weeks out. He has purulent drainage from the area of the skin incision. Prolene sutures were removed. No DVT signs or symptoms. Calves soft. IMPRESSION 1. History of right knee abscess. 2. Potential septic right knee. PLAN I recommended re-aspiration of the right knee. He refuses. He refuses any more surgery. I will see him in 2 weeks. He will do local wound care. Continue oral antibiotics. AUTHENTICATED BY SOFÍA DUKES, ON 05/31/2025 17:10:19 [facility] 05-16-2025 Progress note Formatting of t his note might be different from the original. This nurse reviews discharge instructions with the patient. Patient states understanding. No further education is needed. Medications patient brought home that were sent to pharmacy have been returned by Medina MENDOZA [facility] 05-16-2025 Miscellaneous Notes This nurse reviews discharge instructions with the patient. Patient states understanding. No further education is needed. Medications patient brought home that were sent to pharmacy have been returned by Medina MENDOZA [id number] ENCOUNTER FOR HOME MEDICAL EQUIPMENT PATIENT: Carmen Gilman : 1965 Statement of Care: I certify that Carmen Gilman is under my care and that I, a Nurse Practitioner, had a [id number] encounter with this patient today to evaluate and discuss the need for home medical equipment. I certify that based on the findings of this evaluation, which included but was not limited to the [id number] requirements, the following home medical equipment is medically necessary: Tub Bench and Bariatric Wheeled Walker for the treatment of mobility limitations to enable participation in mobility-related activities of daily living (MRADL) in the home. Based on the current evaluation, patient can safely use prescribed equipment to perform mobility-related activities of daily living (MRADL) in the home.. Signed by: Kathleen Dunham CNP on 05/16/2025 Pt refused morning daily weight. Problem: Actual or potential alteration in health Goal: Absence of healthcare acquired conditions Outcome: Partially Met Goal: Knowledge of Interdisciplinary Plan of Care Outcome: Partially Met Goal: Knowledge of Enviroment Outcome: Partially Met Problem: Pain Goal: Reduced pain sensation Outcome: Partially Met Goal: Control of acute pain to acceptable level Outcome: Partially Met Goal: Able to cope with pain Outcome: Partially Met Goal: Able to achieve maximum level of physical functioning Outcome: Partially Met Goal: Able to achieve maximum level of psychosocial functioning Outcome: Partially Met Problem: Falls, Risk of Goal: Absence of falls Outcome: Partially Met Goal: Absence of physical injury Outcome: Partially Met Problem: Pressure Injury, Risk of Goal: Absence of pressure injury Outcome: Partially Met Problem: Actual or potential alteration in health Goal: Absence of healthcare acquired conditions Outcome: Partially Met Goal: Knowledge of Interdisciplinary Plan of Care Outcome: Partially Met Goal: Knowledge of Enviroment Outcome: Partially Met Problem: Pain Goal: Reduced pain sensation Outcome: Partially Met Goal: Control of acute pain to acceptable level Outcome: Partially Met Goal: Able to cope with pain Outcome: Partially Met Goal: Able to achieve maximum level of physical functioning Outcome: Partially Met Goal: Able to achieve maximum level of psychosocial functioning Outcome: Partially Met Problem: Falls, Risk of Goal: Absence of falls Outcome: Partially Met Goal: Absence of physical injury Outcome: Partially Met Problem: Pressure Injury, Risk of Goal: Absence of pressure injury Outcome: Partially Met Problem: Actual or potential alteration in health Goal: Absence of healthcare acquired conditions Outcome: Partially Met Goal: Knowledge of Interdisciplinary Plan of Care Outcome: Partially Met Goal: Knowledge of Enviroment Outcome: Partially Met Pt refused insulin and cardiac/spo2 monitoring at this time. Pt educated about risks and states he will stop having as much sugar with meals. [employer] Dunham NP notified. PHYSICAL THERAPY VISIT VARIANCE NOTE Attempted to see patient at this time, but unable secondary to: pt refused despite encouragement and education . Will follow up as appropriate. OCCUPATIONAL THERAPY VISIT VARIANCE NOTE Attempted to see patient at this time, but unable secondary to: Refused, reporting he wants to rest and try to get up later. Will follow up as appropriate. Problem: Actual or potential alteration in health Goal: Absence of healthcare acquired conditions Outcome: Partially Met Goal: Knowledge of Interdisciplinary Plan of Care Outcome: Partially Met Goal: Knowledge of Enviroment Outcome: Partially Met Problem: Pain Goal: Reduced pain sensation Outcome: Partially Met Goal: Control of acute pain to acceptable level Outcome: Partially Met Goal: Able to cope with pain Outcome: Partially Met Goal: Able to achieve maximum level of physical functioning Outcome: Partially Met Goal: Able to achieve maximum level of psychosocial functioning Outcome: Partially Met Problem: Falls, Risk of Goal: Absence of falls Outcome: Partially Met Goal: Absence of physical injury Outcome: Partially Met Problem: Pressure Injury, Risk of Goal: Absence of pressure injury Outcome: Partially Met Brief Post Operative Note Patient Name: Carmen Gilman : 1965 (59 y.o.) Date of Service: 05/13/2025 [facility]: [id number] Procedure(s): INCISION AND DRAINAGE TOTAL KNEE Pre-Operative Diagnoses: * Right knee skin infection/abscess Post-Operative Diagnoses: * Same as Pre-Op Diagnosis Surgeons and Role: * Sofía Dukes MD - Primary Anesthesiologist: Bryson Kelley MD Anesthesiologist Belt Maker: Veronica Knapp AA Ekg Manager: Abigail Camejo Scrub Person: Patel Burns ST COMPUTER INSTALLATION ENGINEER: Roseanna Oliveros RN Operative findings: see op note Intra and immediate post-operative complications: none Type of anesthesia used: General Estimated blood loss: 5 mL Estimated urine output: Specimen(s): ID Type Source Tests Collected by Time Destination 1 : RIGHT KNEE INCISION AND DRAINAGE Synovial Fluid Joint, Please Specify ALPHA DEFENSIN Sofía Dukes MD 05/13/2025 1639 2 : SKIN SWAB 1 OUT OF 2 Swab Knee, Right SURGICAL SITE AEROBIC AND ANAEROBIC CULTURE Sofía Dukes MD 05/13/2025 1642 3 : SKIN SWAB 2 OF 2 Swab Knee, Right SURGICAL SITE AEROBIC AND ANAEROBIC CULTURE Sofía Dukes MD 05/13/2025 1643 4 : JOINT SWAB 1 OUT OF 2 Swab Knee, Right SURGICAL SITE AEROBIC AND ANAEROBIC CULTURE Sofía Dukes MD 05/13/2025 1643 5 : JOINT SWAB 2 OUT OF 2 Swab Knee, Right SURGICAL SITE AEROBIC AND ANAEROBIC CULTURE Sofía Dukes MD 05/13/2025 1644 Implant(s): * No implants in log * Drain(s): * No LDAs found * Wound(s): Wound 11/16/24 Foot Right;Mid;Plantar (Active) Dressing Status Open to air 05/13/25 0810 Drainage Amount None 05/13/25 0047 Drainage Description None 05/13/25 0047 Odor Mild 05/13/25 0047 Wound 04/03/25 Chronic Knee Right;Lateral (Active) Dressing Status Clean;Dry;Intact 05/13/25 0810 Drainage Amount Small 05/12/252019 Drainage Description Hernandez 05/12/252019 Wound Characteristics Edema;Fragile;Moist 05/12/25 1437 Primary Dressing Gauze pad 05/12/25 143 Secondary Dressing Gauze roll (e.g Kerlix) 05/12/25 143 Wound 04/03/25 Chronic Pre-tibial Right;Lateral (Active) Dressing Status Open to air 05/13/25 0810 Drainage Amount None 05/12/252019 Drainage Description MAULIK 05/12/252019 Odor Mild 05/12/25 2020 Wound 05/13/25 Knee Anterior;Right (Active) Wound Closure Approximated;Sutures;Surgical Adhesive 05/11/25 0001 Did the case consist of ANY colon or uterine surgery? NO Sofía Dukes MD 05/13/2025 4:57 PM ATTENDING PHYSICIAN [facility] PRIMARY CARE PHYSICIAN ANI WORLEY CNP ADMITTING PHYSICIAN CARMEN CHARLES MD CONSULTING PHYSICIAN SOFÍA DUKES MD PREOPERATIVE DIAGNOSES 1. History of right total knee replacement over 5 years ago. 2. History of right knee skin infection with abscess, status post 2 years. 3. Recurrent right knee skin abscess. POSTOPERATIVE DIAGNOSES 1. History of right total knee replacement over 5 years ago. 2. History of right knee skin infection with abscess, status post 2 years. 3. Recurrent right knee skin abscess. PROCEDURE Incision skin abscess, right knee with irrigation, debridement, and delayed primary closure. Debridement of skin, subcutaneous adipose measuring 1 x 2 cm. SPECIMENS 1. The knee joint Synovasure. 2. Aerobic and anaerobic cultures x2. 3. Right knee lateral wound cultures. ESTIMATED BLOOD LOSS 5 cc. No tourniquet was used. Surgeon Dr. Sofía Dukes HISTORY Carmen is a 59-year-old gentleman who I did a knee replacement on 5 years ago, was doing very well however developed a wound on the lateral aspect of his right knee. He has a history of a chronic lymphedema, cellulitis, and venous insufficiency in both lower extremities. The patient was admitted for medical maximization and presents for incision and drainage of this abscess. The patient was explained all the risks and complications of surgery including, but not limited to, the risk of infection, bleeding, neurologic or vascular injury, possibility of deep venous thrombosis, pulmonary embolism, myocardial infarction, stroke, or even with surgery. Explained that there is a possibility that if in fact there were a septic total knee replacement that we could be looking at a resection arthroplasty with antibiotic spacer. He understands that at this time and consents for surgical intervention. PROCEDURE IN DETAIL Patient met in preoperative holding where the right knee was confirmed to be the appropriate site and marked by myself. The gentleman at this point in time has a 1 x 2 cm abscess with surrounding drainage. The right leg was marked. He was taken to the operative suite. He has been receiving antibiotics on the medical floor including vancomycin. The patient was given preoperative Kefzol per protocol. After general anesthetic the right lower extremity was then sterilely prepped and draped using ChloraPrep solution. After sterilization of the right leg we did our final time-out to confirm that the right knee was the appropriate site. We at this time through a superomedial approach, obtained 5 cc of bloody serous fluid which was sent for Synovasure as well as aerobic and anaerobic cultures x2. After this was completed, we went laterally, excised the abscess with skin and subcutaneous adipose measuring 1 x 2 cm in an elliptical type fashion. There did not appear to be any deep fistula penetration into the knee joint. We then irrigated it with copious Irrisept and Surgiphor irrigation. This wound was then closed with 0 Prolene suture, placed in a sterile dressing, extubated, taken to PACU without intraoperative complication. D 05/13/2025 17:01 [id number] 05/13/2025 17:45 MCB/MODL Wiliam Reddy may skip 9am dose of vancomycin due to intolerance with potassium. Patient refusing 0600 dose of IV Lasix stating "I was up all night pissing and now they want you to give me more? No, I am not taking that right now." Patient voices understanding the purpose of the Lasix when educated. Patient refusing daily weight at this time. Problem: Actual or potential alteration in health Goal: Absence of healthcare acquired conditions Outcome: Partially Met Goal: Knowledge of Interdisciplinary Plan of Care Outcome: Partially Met Goal: Knowledge of Enviroment Outcome: Partially Met Problem: Actual or potential alteration in health Goal: Absence of healthcare acquired conditions Outcome: Partially Met Goal: Knowledge of Interdisciplinary Plan of Care Outcome: Partially Met Goal: Knowledge of Enviroment Outcome: Partially Met Problem: Pain Goal: Reduced pain sensation Outcome: Partially Met Goal: Control of acute pain to acceptable level Outcome: Partially Met Goal: Able to cope with pain Outcome: Partially Met Problem: Actual or potential alteration in health Goal: Absence of healthcare acquired conditions Outcome: Partially Met Goal: Knowledge of Interdisciplinary Plan of Care Outcome: Partially Met Goal: Knowledge of Enviroment Outcome: Partially Met Problem: Pain Goal: Reduced pain sensation Outcome: Partially Met Goal: Control of acute pain to acceptable level Outcome: Partially Met Goal: Able to cope with pain Outcome: Partially Met Goal: Able to achieve maximum level of physical functioning Outcome: Partially Met Goal: Able to achieve maximum level of psychosocial functioning Outcome: Partially Met Problem: Falls, Risk of Goal: Absence of falls Outcome: Partially Met Goal: Absence of physical injury Outcome: Partially Met [facility] EMERGENCY DEPARTMENT ATTENDING NOTE: NAME: Carmen Gilman CSN: [id number] 59 y.o. ED Attestation: I have reviewed the Advanced Practice Provider's (WHIT's) documentation. In addition, I have personally introduced myself to the patient (face to face), and have taken his history and performed an examination. I agree with the physical findings, management, clinical impression and disposition. I did perform the substantive portion of this patient's encounter, including all aspects of the MDM. In brief, Carmen is a 59 y.o. male who presents with a chief complaint of Knee Pain. 59-year-old male presenting to the emergency department for evaluation of infected lower extremity wounds, concern for joint infection, this was sent for wound culture, the patient was admitted for further evaluation and management 1. Leg pain 2. Open wound of right knee, leg, and ankle, initial encounter 3. Cellulitis, unspecified cellulitis site documented in this encounter [facility] 05-16-2025 Note [facility] 05-16-2025 History of Present illness Narrative ATTENDING PHYSICIAN CAROLYN JALLOH MD PRIMARY CARE PHYSICIAN ANI WORLEY CNP ADMITTING PHYSICIAN CARMEN CHARLES MD CONSULTING PHYSICIAN SOFÍA DUKES MD Carmen, at this point in time, 59-year-old, postoperative day #3 aspiration right knee, as well as incision and drainage right skin abscess. At this point in time, the patient's knee joint cultures were negative, however, there was noted to be some rare Corynebacteria on 1 of the 2 swabs. This gentleman would like to go home on oral antibiotics. His wound has scant drainage, no DVT signs or symptoms. IMPRESSION Postoperative day 3. PLAN At this point in time, we are going to have the patient transition home. He is on Keflex and doxycycline. I will see him in 2 weeks for wound check. He will do daily dressing changes. D 05/16/2025 13:36 [id number] 05/16/2025 15:14 MCB/MODL Date: 05/16/2025 Time: 11:40 AM Patient Name: Carmen Gilman Date of : 1965 Discharge Disposition Update: Discussed patient with Kathleen Dunham CNP. Patient is ready for discharge. Patient was accepted by [facility] for home health care services. SW educated patient on his insurance coverage and requested equipment. Patient understood and stated that he would be okay without the bariatric walker and tub bench as he has a standard walker and tub bench at home. D/C Disposition: Home Health Care Services Final D/C Agency/Destination: [facility] Care Plan A: Home Health Care Services Plan A : Post Acute Patient Choice [facility] Transportation: Discharge Disposition: Regulatory Documentation: Physical Therapy PHYSICAL THERAPY TREATMENT NOTE Skilled Therapy Needs After Discharge Anticipate Resolution of Current Assessment Limitations Including: Pain, Mechanical Barriers Are command post craftsman Therapy Services Needed After Discharge: Yes Intensity of command post craftsman Therapy: 5 to 7 days per week (Discussed PT concerns with returning home alone/ home safety/fall prevention. Pt is refusing any short term inpt rehabilitation and states he will only be agreeable to home health PT services. Pt report ESTEBAN will help him as needed) Anticipated Duration of command post craftsman Therapy: Duration 7 - 10 days PT DME Recommendation: To be determined at next level of care (pt requesting shower bench - already has shower chair at home.) PT DME Rationale: Patient's condition prevents him/her from accomplishing ADL without recommended equipment Rehab Potential: Fair Outcomes Measures Prior Function - Basic Mobility Raw Score: 23 Points Prior Function - Basic Mobility % Impaired: 16.55% Variance: (Unable to accurately complete scoring for all categories due to patients unwillingness to participate at this time.) Activity Tolerance Activity Tolerance: Tolerates 10 - 20 min activity with multiple rests (Patient requiring increased time and effort as well as increased encouragement.) Therapy Precautions Orthotic Devices: No Weight Bearing Status: X RLE: (no restriction per RN) General Rehab Precautions: Fall risk Balance Sitting Balance - Static: Modified independent Standing Balance - Static: Stand by assist, with bilateral UE support Bridge Construction Inspector - Standing Static: BUE, wheeled walker Standing Balance - Dynamic: Stand by assist, with bilateral UE support Bridge Construction Inspector - Standing Dynamic: BUE, wheeled walker Loss of Balance- Standing Dynamic: (Unsteady throughout and declining to have FLAKEBOARD LINE TENDER hold Gait belt.) Transfers Sit to Stand: Stand by assist (Patient rocking for momentum 4x for stand.) Bed to Chair: Stand by assist (to commode) Bridge Construction Inspector: BUE, wheeled walker Skilled Intervention Provided: verbal cues, monitoring patient response with activity, patient education For: UE positioning, controlled descent, efficient movement, fall prevention, safety during functional tasks, safe use of AD and/or equipment, weight shifting Resulting in: decreased safety (Patient having no follow through with VC given for sequencing,Safety with AD management or for eccentric control for descent to chair. Patient ordering FLAKEBOARD LINE TENDER to exit room before sitting on commode. Service Person declining to leave until patient was safely seated.) Gait/Locomotion Gait Assistance: (Patient refusing to participate in gait and further therapy.) Additional Treatment Details Noticed patients call light was on so went in to assist with getting to commode. Patients edema causing MOD leaking on floor causing unsafe surface to transfer from and patient insisting on wearing slides with seepage on them. Informing patient we would need hospital socks on for safety to transfer. PAtient agreeable to wear socks with encouragement. Patient initially refusing to have gait belt donned but FLAKEBOARD LINE TENDER encouraging for safety. PAtient requiring bed to be elevated to assist with STS transfer and max cueing for weiight shifting and for safety with AD management as well as for sequencing and eccentric control for descent to chair. Patient having poor follow through with cueing this date and refusing to be educated. Patient stating he is not doing anything else with therapy today and requesting to have his phone on the commode. Patient unsafe to return home on own at this time. Call light was given to patient and he was left on commode upon exiting,Nursing and staff notified. Patient is refusing most medical treatment at this time. Home Living Obtained Home Living and PLOF info from: Patient Lives With: Alone Type of Home: Apartment (3 rd floor - uses elevators between floors) Home Layout: One level (laundry on 3rd floor - done by ESTEBAN) Steps to enter home: No Bathroom Shower/Tub: Tub/shower unit Bathroom Toilet: Standard Bathroom Equipment: Grab bars in shower, Shower chair, Hand-held showerhead, Bedside commode Bathroom Accessibility: Accessible via walker Mobility Equipment: Wheeled walker, Cane, Wheelchair - manual, Home oxygen, Lift chair (pt unsure how many liters of O2 PRN) Prior Level of Function Level of Boutte - Transfers/Ambulation/Mobility: Independent with functional transfers, Independent with household ambulation (ambulates in home and in community with cane;) Level of [place]outte - ADLs: (ESTEBAN washes pt hair, legs and feet) Level of [place]te - Homemaking: (ESTEBAN performs tasks) Driving: Patient drives Vocational: On disability For complete objective data, detailed plan of care and patient education refer to: PT Evaluation flowsheet, PT Evaluation and Treatment flowsheet, PT Treatment flowsheet, patient Plan of Care, Plan of Care progress note, and Patient Education. This note stands as the current Discharge Summary upon patient discharge from the hospital or completion of Physical Therapy Plan of Care. Cosigned by Jumana Sanchez PT at 05/16/2025 11:49 AM EDT ATTENDING PHYSICIAN TATA CHANDRA [facility] PRIMARY CARE PHYSICIAN ANI WORLEY CNP ADMITTING PHYSICIAN CARMEN CHARLES MD CONSULTING PHYSICIAN SOFÍA DUKES MD PROGRESS NOTE Carmen, at this point in time is postoperative day #2 incision and drainage right knee wound infection. At this point in time, the patient is doing well. His cultures currently at 48 hours are negative. The intraarticular cartilages are negative. Wound cultures are negative. Wound has mild drainage. IMPRESSION Postoperative day 2 incision and drainage right leg skin infection. PLAN At this point in time, from my standpoint he can transition home on oral antibiotics. We will await final cultures. I will see him in 2 weeks in the office. D 05/15/2025 17:23 [id number] 05/15/2025 17:45 MCB/MODL Date: 05/15/2025 Time: 3:49 PM Patient Name: Carmen Gilman Date of : 1965 Discharge Disposition Update: Discussed patient with Kathleen Dunham CNP. Patient is not ready for discharge today. SW received a secure chat from PT who confirmed patient would like to continue to pursue a home with home health care services discharge plan. Patient has identified [facility] as agency of choice. SW placed inpatient home health [facility] order. CM to continue to follow. Plan A: Home Health Care Services Plan A : Post Acute Patient Choice 1: [facility] Plan B: [facility] Transportation: Discharge Disposition: Regulatory Documentation: [facility] [place] Patient name: Carmen Gilman Date of : 1965 Assessment and plan Carmen Gilman is a 59 y.o. male patient of Ani Worley CNP with history of Anxiety, Arrhythmia, Arthritis, COPD, DM, HTN, Left Knee Pain, Opioid Dependance, who presented to [facility] on 05/11/2025 with complaints of Rt Knee pain. Right knee wound Acute Rt Knee Pain Rt Knee Cellulitis RLE Edema Rt Knee X-Ray: no acute findings CT right knee: new perihardware lucency at the tibial plateau hardware interface and lucency in the distal femoral diaphysis. Orthopedic consult OR 05/13/25 I&D Blood cultures negative at this time Wound culture Corynebacterium species, not JK Surgical site cultures NGTD MRSA probe Negative Continue IV Zosyn/Vancomycin, deescalate as soon as possible COPD not in exacerbation Intermittent Home O2 use PRN bronchodilators. O2 prn Acute on chronic HFpEF TTE (2024) normal LV function with LVEF 71%; mildly enlarged RV with normal RV function. BNP 91 S/p Lasix IV BID, transition back to orals, patient refusing IV Strict I/O, down 2 liters Daily weights Essential Hypertension Not currently on anti-hypertensive medications Blood pressure currently stable Pre-diabetes A1c 01/2025: 6.2 Currently refusing diabetic diet Accuchecks AC/HS with ISS coverage Hypokalemia K+ 3.4 > 4.1>4.3 As needed potassium replacement Monitor Hyponatremia Na 134>136 Monitor Peripheral Neuropathy Continue gabapentin Chronic thrombocytopenia Chronic leukopenia Chronic anemia Baseline hemoglobin 10-11, current hemoglobin 10.4 Baseline platelet 110s to 120s, current platelets 111>113 WBC 2.80>2.55 Chronic Fatigue Reduced Mobility Medication Non-compliance PT/OT Case Management for Dc need Encouraged and discussed importance of compliance Polysubstance Abuse Previously used Suboxone UDS positive for Cocaine, Buprenorphine, and oxycodone Obesity BMI 37.52 Encourage diet lifestyle modification Discharge planning Medically ready for discharge: no Patient and/or family has been notified they are expected to be medically stable for discharge on the following date: 05/16/25 Patient requires continued hospitalization due to: Cultures from surgical site Discussed with the patient and/or family that the following is a potential discharge location, understanding that the final plan will depend on the patient's progress and shared decision-making: Home The following resources have been ordered to assist with discharge barriers: care management, PT, OT Quality measures DVT prophylaxis: lovenox Tavera catheter: absent Code status Full Code Subjective Patient resting in bed when seen this morning, no new complaints. Objective BP 136/71 Pulse 77 Temp 97.6 F (36.4 C) Resp 16 Ht 6' Wt 125.5 kg (276 lb 10.8 oz) SpO2 92% BMI 37.52 kg/m General appearance: alert; chronically ill appearing; in no acute distress HEENT: Head- normocephalic; Eyes- EOMI, sclera anicteric; Throat- mucous membranes moist Cardiovascular: regular rate and rhythm; normal S1, S2; no murmurs, rubs, clicks or gallops; peripheral edema absent Respiratory: lungs clear to auscultation; without wheezes, rales or rhonchi; on nasal cannula Abdomen: soft, non-tender, non-distended Neurological: oriented x 3; normal speech; no focal findings or movement disorder noted Musculoskeletal: no significant deformity or tenderness to palpation Skin: normal coloration, vascular discoloration BLE Psych: normal mood and affect Pharmacy to Dose Antimicrobials Assessment / Plan: Carmen Gilman is a 59 y.o. male initiated on vancomycin for skin/soft tissue infection. Vancomycin goal AUC is 400-600 mcg h/mL. Current regimen will produce a predicted AUC of 511 mcg h/mL with trough of 13.6 mcg/mL. Pharmacy will continue to follow and make adjustments as needed. Please use Schmoozer to call pharmacy or secure chat the assigned pharmacist with questions. Dosing for this admission: Date Dose and interval before level (or initial dose) Level Dose and interval after level Notes/Follow-Up 05/12 1750 mg q12h -- -- 05/13 1750 q 12 23.7 (4.75 hours post dose) 1750mg q 12 Random in 2 days 05/15 1750mg q12h 23.6 (5h post dose) 1750mg q12h Random in 5-7d Other active antibiotics include: zosyn Objective: Lab Results Component Value Date CREATININE 0.52 05/15/2025 CREATININE 0.57 05/14/2025 CREATININE 0.64 05/13/2025 CREATININE 0.60 05/12/2025 CREATININE 0.66 05/11/2025 Lab Results Component Value Date WBC 2.55 (L) 05/15/2025 WBC 2.80 (L) 05/14/2025 WBC 2.82 (L) 05/13/2025 WBC 2.96 (L) 05/12/2025 WBC 4.46 (L) 05/11/2025 Ht Readings from Last 1 Encounters: 05/12/25 6' (182.9 cm) Wt Readings from Last 1 Encounters: 05/12/25 125.5 kg (276 lb 10.8 oz) Cliff body weight: 77.6 kg (171 lb 1.2 oz) Adjusted ideal body weight: 96.8 kg (213 lb 5.1 oz) Patient Tmax (last 24 hours): 98.5 F Micro: 05/09 Right knee synovial fluid = No growth after 72 hours 05/11 Blood = no growth to date 05/12 Right leg drainage = Few shun positive bacillin, few gram negative bacilli Pharmacy Personnel: Tiffanie Beavers RPh,PharmD Contact: or Vocera Nutrition Care Initial Assessment Hx: DM, bilateral lower extremity wounds Reason for visit: Dietitian Screen: Nutrition Diagnosis: Inadequate Protein Energy Intake related to increased needs as evidenced by needs for wound healing. Nutrition Intervention Initiate Medical Food Supplement Nutrition Prescription: Oral nutrition supplement: Add Boost Glucose Control with dinner Nutrition Goals: Tolerate diet with PO intakes >75% most meals and supplements Start Date:05/14/2025 Expected End Date:05/20/2025 Nutrition Education: No needs at this time Assessment: Pertinent clinical information: lower extremity wounds Past Medical History: Diagnosis Date Anxiety Arrhythmia Arthritis Asthma COPD (chronic obstructive pulmonary disease) ([facility]) Sometimes uses home O2 Diabetes ([facility]) Hypertension Knee pain, left Leg swelling Opioid dependence ([facility]) Secondary adrenal insufficiency 04/30/2022 left AMA 04/30/22 without treatment Past Surgical History: Procedure Laterality Date APPENDECTOMY ARTHROPLASTY KNEE TOTAL ROBOTIC ASSISTED Right 01/08/2020 Procedure: Right Total Knee Replacement Robotic; Surgeon: Sofía Dukes MD; Location: Main OR; Service: Ortho-Robotics DEBRIDEMENT WITH WOUND CLOSURE POSS SKIN GRAFT LOWER EXTR Right 06/03/2023 Procedure: RIGHT LATERAL LEG Debridement with VERSAJET; Surgeon: ALEXEY Radford DPM; Location: Main OR; Service: Podiatry FOOT SURGERY Left INCISION AND DRAINAGE TOTAL KNEE Right 05/13/2025 Procedure: INCISION AND DRAINAGE TOTAL KNEE; Surgeon: Sofía Dukes MD; Location: Main OR; Service: Orthopedic; Laterality: Right; MANDIBLE FRACTURE SURGERY ORTHOPEDIC SURGERY Right knee SKIN GRAFT SPLIT THICKNESS LOWER EXTREMITY Right 08/05/2023 Procedure: RIGHT LOWER LEG SPLIT THICKNESS SKIN GRAFT; Surgeon: Cecilia Gonzales DPM; Location: Main OR; Service: Podiatry THORACIC DUCT LIGATION 01/15/2017 THORACIC DUCT LIGATION US ECHO COMP 05/2023 EF- 65-70%, pulm htn WOUND VAC Right 06/03/2023 Procedure: APPLICATION WOUND VAC; Surgeon: ALEXEY Radford DPM; Location: Main OR; Service: Podiatry Height: 6' Current weight: 125.5 kg (276 lb 10.8 oz) BMI Body mass index is 37.52 kg/m . Weight hx: Wt Readings from Last 10 Encounters: 05/12/25 125.5 kg (276 lb 10.8 oz) 05/09/25 120.2 kg (265 lb) 04/02/25 136.1 kg (300 lb) 02/21/25 129.1 kg (284 lb 9.8 oz) 02/14/25 126.6 kg (279 lb) 01/02/25 132 kg (291 lb) 11/09/24 120.2 kg (265 lb) 10/23/24 (!) 140.8 kg (310 lb 6.4 oz) 10/16/24 117.9 kg (260 lb) 07/02/24 117.9 kg (260 lb) Current diet order: Diet: Diabetic; Consistent Carbohydrate 75g/meal Recent intake: 90% of breakfast(05/14) Current intake likely does not meet estimated needs Barriers to adequate p.o. intakes: No barriers identified Nutrition Related Allergies/Intolerances: No Nutrition Related Allergies noted Cultural or Restorationist Dietary Needs :No Cultural or Restorationist Dietary needs noted Patient/family comments:s Difficulty Chewing or Swallowing: No Skin Integrity: lower extremity wounds GI Function: WDL Fluid Status: WNL Physical Appearance: No signs and symptoms of malnutrition noted Labs: Recent Labs 05/11/25224805/12/25 1034 05/14/25 0444 NA 134* < > 134* K 3.9 < > 4.1 BICARB 26 < > 26 CL 98 < > 99 GLUCOSE 96 < > 170* BUN 16 < > 13 CREATININE 0.66 < > 0.57 MG -- < > 1.8 ALBUMIN 3.4 -- -- < > = values in this interval not displayed. Recent Labs 05/11/25224805/12/25 1034 05/13/25 0540 05/14/25 0444 GLUCOSE 96 178* 102* 170* Lab Results Component Value Date HGBA1C 6.2 (H) 02/11/2025 Home Medications Reviewed: Yes Scheduled Meds: enoxaparin (LOVENOX) injection 40 mg Subcutaneous Daily furosemide 40 mg Intravenous Q12H CASSIUS gabapentin 800 mg Oral Q8H CASSIUS lispro insulin 0-15 Units Subcutaneous at bedtime insulin lispro 0-30 Units Subcutaneous TID AC melatonin 10 mg Oral Nightly piperacillin-tazobactam (ZOSYN) extended infusion 3.375 g Intravenous Q8H senna-docusate 1 tablet Oral BID sodium chloride (PF) 5 mL Intravenous Q8H CASSIUS vancomycin 1,750 mg Intravenous Q12H Continuous Infusions: Nutrient Depleting Medications: No chronic use of nutrient depleting medications noted. Estimated Energy Needs Total Energy Estimated Needs: 2200-2400kcal Method for Estimating Needs: MStJx1.1 Total Protein Estimated Needs: 100gm Method for Estimating Needs: 1.1gm/kg adj Kevan Palmer RD ATTENDING PHYSICIAN [facility] PRIMARY CARE PHYSICIAN ANI WORLEY CNP ADMITTING PHYSICIAN CARMEN CHARLES MD CONSULTING PHYSICIAN SOFÍA DUKES MD Carmen is a 59-year-old gentleman, had a knee replacement about 5 years, had a chronic ulcer on his right leg, underwent irrigation and debridement. The patient yesterday, we did cultures of his the right knee joint, which at this point in time are negative on 2 sets. We did cultures of the lateral wound, which at this time were negative. We also did an alpha defensin test which suggested potential infectious process. We are awaiting final cultures. We also did cultures of this knee on 05/09/2025 which the knee joint cultures were negative. PHYSICAL EXAMINATION Extremities: Wound is clean, dry, intact. No erythema. No drainage. Calves soft. Negative Homans. He has, however, the horrible skin discoloration and significant lymphedema and brawny skin discoloration changes in the lower extremities that are chronic on both legs with some cellulitic changes of both lower extremities. IMPRESSION 1. Bilateral lower extremity lymphedema and cellulitis. 2. History of chronic wound ulcer, right leg. 3. Possible septic right total knee replacement. PLAN We will await our final cultures. We had negative cultures from 05/09/2025. We are waiting the final cultures, both of our wound. We will continue the Vanco and Zosyn. Continue wound care. Further recommendations to follow. D 05/14/2025 13:24 [id number] 05/14/2025 13:42 MCB/MODL [facility] [place] Patient name: Carmen Gilman Date of : 1965 Assessment and plan Carmen Gilman is a 59 y.o. male patient of Ani Worley CNP with history of Anxiety, Arrhythmia, Arthritis, COPD, DM, HTN, Left Knee Pain, Opioid Dependance, who presented to [facility] on 05/11/2025 with complaints of Rt Knee pain. Right knee wound Acute Rt Knee Pain Rt Knee Cellulitis RLE Edema Rt Knee X-Ray: no acute findings CT right knee: new perihardware lucency at the tibial plateau hardware interface and lucency in the distal femoral diaphysis. Orthopedic consult with tentative plan for OR 05/13/25 Blood cultures negative at this time Wound culture with negative and positive Bacilli MRSA probe Negative Continue IV Zosyn/Vancomycin, deescalate as soon as possible COPD not in exacerbation Intermittent Home O2 use PRN bronchodilators. O2 prn Acute on chronic HFpEF TTE (2024) normal LV function with LVEF 71%; mildly enlarged RV with normal RV function. BNP 91 S/p Lasix IV BID, transition back to orals, patient refusing IV Strict I/O, down 2 liters Daily weights Essential Hypertension Not currently on anti-hypertensive medications Blood pressure currently stable Pre-diabetes A1c 01/2025: 6.2 Currently refusing diabetic diet Accuchecks AC/HS with ISS coverage Hypokalemia K+ 3.4 > 4.1 As needed potassium replacement Monitor Hyponatremia Na 134 Monitor Peripheral Neuropathy Continue gabapentin Chronic thrombocytopenia Chronic leukopenia Chronic anemia Baseline hemoglobin 10-11, current hemoglobin 10.4 Baseline platelet 110s to 120s, current platelets 111 WBC 2.80 Chronic Fatigue Reduced Mobility Medication Non-compliance PT/OT Case Management for Dc need Encouraged and discussed importance of compliance Polysubstance Abuse Previously used Suboxone UDS positive for Cocaine, Buprenorphine, and oxycodone Obesity BMI 37.52 Encourage diet lifestyle modification Discharge planning Medically ready for discharge: no Patient and/or family has been notified they are expected to be medically stable for discharge on the following date: 2 days (05/16/2025) Patient requires continued hospitalization due to: symptom improvement, abnormal lab work, care management, PT/OT Discussed with the patient and/or family that the following is a potential discharge location, understanding that the final plan will depend on the patient's progress and shared decision-making: Home with home health The following resources have been ordered to assist with discharge barriers: care management, PT, OT Quality measures DVT prophylaxis: lovenox Tavera catheter: absent Code status Full Code Subjective Patient resting in bed, no new complaints. Objective BP 133/74 Pulse 72 Temp (!) 96.7 F (35.9 C) (Axillary) Resp 16 Ht 6' Wt 125.5 kg (276 lb 10.8 oz) SpO2 94% BMI 37.52 kg/m General appearance: alert; chronically ill appearing; in no acute distress HEENT: Head- normocephalic; Eyes- EOMI, sclera anicteric; Throat- mucous membranes moist Cardiovascular: regular rate and rhythm; normal S1, S2; no murmurs, rubs, clicks or gallops; peripheral edema absent Respiratory: lungs clear to auscultation; without wheezes, rales or rhonchi; on nasal cannula Abdomen: soft, non-tender, non-distended Neurological: oriented x 3; normal speech; no focal findings or movement disorder noted Musculoskeletal: no significant deformity or tenderness to palpation Skin: normal coloration, vascular discoloration BLE Psych: normal mood and affect [facility] [place] [place] Patient name: Carmen Gilman Date of : 1965 Assessment and plan Carmen Gilman is a 59 y.o. male patient of Ani Worley CNP with history of Anxiety, Arrhythmia, Arthritis, COPD, DM, HTN, Left Knee Pain, Opioid Dependance, who presented to [facility] on 05/11/2025 with complaints of Rt Knee pain, Rt knee wound (TKR). Mr. Gilman is alone at the time of exam and is a fair historian Right knee wound Acute Rt Knee Pain Rt Knee Cellulitis RLE Edema Rt Knee X-Ray: no acute findings CT right knee: new perihardware lucency at the tibial plateau hardware interface and lucency in the distal femoral diaphysis. Orthopedic consult with tentative plan for OR 05/13/25 Blood cultures negative at this time Wound culture with negative and positive Bacilli MRSA probe Negative Continue IV Zosyn/Vancomycin, deescalate as soon as possible Consider ID consult pending culture results COPD not in exacerbation Intermittent Home O2 use PRN bronchodilators. O2 prn Acute on chronic HFpEF TTE (2024) normal LV function with LVEF 71%; mildly enlarged RV with normal RV function. BNP 91 S/p Lasix IV BID, transition back to orals, patient refusing IV Strict I/O, down 2 liters Daily weights Essential Hypertension Not currently on anti-hypertensive medications Blood pressure currently stable Pre-diabetes A1c 01/2025: 6.2 Currently refusing diabetic diet Accuchecks AC/HS with ISS coverage Hypokalemia Potassium replacement Peripheral Neuropathy Continue gabapentin Chronic thrombocytopenia Chronic leukopenia Anemia HH: 11.5/38.9 (9.8/32.7), currently holding at 10.7 Platelets 115 WBC 2.96->2.82 Goal Hgb >7.0 Trend. Chronic Fatigue Reduced Mobility Medication Non-compliance PT/OT Case Management for Dc need Encouraged and discussed importance of compliance Polysubstance Abuse Previously used Suboxone UDS positive for Cocaine, Buprenorphine, and oxycodone Obesity Encourage weight loss and exercise Discharge planning Medically ready for discharge: no Patient and/or family has been notified they are expected to be medically stable for discharge on the following date: 3 days (05/16/2025) Patient requires continued hospitalization due to: Ortho surgery 05/13, IV ATB, Cultures pending Discussed with the patient and/or family that the following is a potential discharge location, understanding that the final plan will depend on the patient's progress and shared decision-making: Home The following resources have been ordered to assist with discharge barriers: care management, PT, OT Quality measures DVT prophylaxis: lovenox Tavera catheter: absent Code status Full Code Subjective Patient reports pain 10/10 in right knee. Requesting pain medication, discussed with nursing. Objective BP 137/79 Pulse 81 Temp 98.4 F (36.9 C) (Axillary) Resp 18 Ht 6' Wt 125.5 kg (276 lb 10.8 oz) SpO2 90% BMI 37.52 kg/m General appearance: alert; acute on chronically ill appearing; in no acute distress HEENT: Head- normocephalic; Eyes- EOMI, sclera anicteric; Throat- mucous membranes moist Cardiovascular: regular rate and rhythm; normal S1, S2; no murmurs, rubs, clicks or gallops; peripheral edema present Respiratory: lungs clear to auscultation; without wheezes, rales or rhonchi; on room air Abdomen: soft, non-tender, non-distended Neurological: oriented x 3; normal speech; no focal findings or movement disorder noted Musculoskeletal: no significant deformity or tenderness to palpation Skin: normal coloration, right knee wound with serous drainage Psych: normal mood and affect Pharmacy to Dose Antimicrobials Assessment / Plan: Carmen Gilman is a 59 y.o. male initiated on vancomycin for skin/soft tissue infection. Vancomycin goal AUC is 400-600 mcg h/mL. Current regimen will produce a predicted AUC of 565 mcg h/mL with trough of 15.6 mcg/mL. Pharmacy will continue to follow and make adjustments as needed. Please use Schmoozer to call pharmacy or secure chat the assigned pharmacist with questions. Dosing for this admission: Date Dose and interval before level (or initial dose) Level Dose and interval after level Notes/Follow-Up 05/12 1750 mg q12h -- -- 05/13 1750 q 12 23.7 (4.75 hours post dose) 1750mg q 12 Random in 2 days Other active antibiotics include: Vanco/zosyn Objective: Lab Results Component Value Date CREATININE 0.64 05/13/2025 CREATININE 0.60 05/12/2025 CREATININE 0.66 05/11/2025 CREATININE 0.51 04/05/2025 CREATININE 0.65 04/04/2025 Lab Results Component Value Date WBC 2.82 (L) 05/13/2025 WBC 2.96 (L) 05/12/2025 WBC 4.46 (L) 05/11/2025 WBC 3.21 (L) 04/05/2025 WBC 4.71 04/04/2025 Ht Readings from Last 1 Encounters: 05/12/25 6' (182.9 cm) Wt Readings from Last 1 Encounters: 05/12/25 125.5 kg (276 lb 10.8 oz) Cliff body weight: 77.6 kg (171 lb 1.2 oz) Adjusted ideal body weight: 96.8 kg (213 lb 5.1 oz) Patient Tmax (last 24 hours): 98.4 F Micro: 05/09 Right knee synovial fluid = No growth after 72 hours 05/11 Blood = no growth to date 05/12 Right leg drainage = Few shun positive bacillin, few gram negative bacilli Pharmacy Personnel: Sorin Simons RPh,PharmD Contact: or Sameerera [facility] [place] Patient name: Carmen Gilman Date of : 1965 Assessment and plan Carmen Gilman is a 59 y.o. male patient of Ani Worley CNP with history of Anxiety, Arrhythmia, Arthritis, COPD, DM, HTN, Left Knee Pain, Opioid Dependance, who presented to [facility] on 05/11/2025 with complaints of Rt Knee pain, Rt knee wound (TKR). Mr. Gilman is alone at the time of exam and is a fair historian Right knee wound Acute Rt Knee Pain Rt Knee Cellulitis RLE Edema Rt Knee X-Ray: no acute findings CT right knee: new perihardware lucency at the tibial plateau hardware interface and lucency in the distal femoral diaphysis. Orthopedic consult with tentative plan for OR Tuesday. NPO p MN. Follow blood and wound cultures Check MRSA probe. On Zosyn/Vancomycin. COPD not in exacerbation Intermittent Home O2 use PRN bronchodilators. O2 prn Acute on chronic HFpEF TTE (2024) normal LV function with LVEF 71%; mildly enlarged RV with normal RV function. Non compliant with home lasix. Check BNP Start Lasix IV BID Strict I/O Daily weights. Essential Hypertension Not currently on anti-hypertensive medications. Pre-diabetes A1c 01/2025: 6.2 Currently refusing diabetic diet Accuchecks AC/HS with ISS coverage Peripheral Neuropathy Obesity Continue gabapentin. Chronic thrombocytopenia Chronic leukopenia Anemia HH: 11.5/38.9 (9.8/32.7) Platelets 117 WBC 2.9 Goal Hgb >7.0 Trend. Chronic Fatigue Reduced Mobility Medication Non-compliance PT/OT Case Management for Dc need Encouraged and discussed importance of compliance Opioid Dependence Previously used Suboxone Check UDS Discharge planning Medically ready for discharge: no Patient and/or family has been notified they are expected to be medically stable for discharge on the following date: 3 days (05/15/2025) Patient requires continued hospitalization due to: symptom improvement, OR for surgery, discharge planning, care management Discussed with the patient and/or family that the following is a potential discharge location, understanding that the final plan will depend on the patient's progress and shared decision-making: Home The following resources have been ordered to assist with discharge barriers: care management Quality measures DVT prophylaxis: lovenox Tavera catheter: absent Code status Full Code Subjective C/o pain to RLE Objective BP (!) 169/87 Pulse 83 Temp 98 F (36.7 C) (Oral) Resp 16 SpO2 93% General appearance: alert; chronically ill appearing; in no acute distress HEENT: Head- normocephalic; Eyes- EOMI, sclera anicteric; Throat- mucous membranes moist Cardiovascular: regular rate and rhythm; normal S1, S2; no murmurs, rubs, clicks or gallops; peripheral edema present Respiratory: lungs clear to auscultation; without wheezes, rales or rhonchi; on room air Abdomen: soft, non-tender, non-distended Neurological: oriented x 3; normal speech; no focal findings or movement disorder noted Musculoskeletal: no significant deformity or tenderness to palpation Skin: normal coloration; right wound near knee draining serous. Psych: normal mood and affect Pharmacy to Dose Antimicrobials Assessment / Plan: Carmen Gilman is a 59 y.o. male initiated on vancomycin for skin/soft tissue infection. Vancomycin goal AUC is 400-600 mcg h/mL. Current regimen will produce a predicted AUC of 532 mcg h/mL with trough of 14.5 mcg/mL. Pharmacy will continue to follow and make adjustments as needed. Please use Schmoozer to call pharmacy or secure chat the assigned pharmacist with questions. Dosing for this admission: Date Dose and interval before level (or initial dose) Level Dose and interval after level Notes/Follow-Up 05/12 1750 mg q12h -- -- Other active antibiotics include: Vanco/zosyn Objective: Lab Results Component Value Date CREATININE 0.66 05/11/2025 CREATININE 0.51 04/05/2025 CREATININE 0.65 04/04/2025 CREATININE 0.47 (L) 04/02/2025 CREATININE 0.72 02/21/2025 Lab Results Component Value Date WBC 4.46 (L) 05/11/2025 WBC 3.21 (L) 04/05/2025 WBC 4.71 04/04/2025 WBC 3.00 (L) 04/02/2025 WBC 3.08 (L) 02/21/2025 Ht Readings from Last 1 Encounters: 05/09/25 6' (182.9 cm) Wt Readings from Last 1 Encounters: 05/09/25 120.2 kg (265 lb) Cliff body weight: 77.6 kg (171 lb 1.2 oz) Adjusted ideal body weight: 94.6 kg (208 lb 10.3 oz) Patient Tmax (last 24 hours): 98 F Micro: pend Pharmacy Personnel: Yoly Birch RPh,PharmD Contact: or Sameerera documented in this encounter [facility] 05-16-2025 Hospital course Narrative [facility] [place] [facility] Carmen Gilman : 1965 Admitted: 05/11/2025 Discharge Date: 05/16/25 PCP Handoff Recommended Outpatient Testing Follow up with Dr. Dukes Results Pending At Discharge Pending Lab and Radiology Results Order Current Status Blood Culture Aerobic/Anaerobic Preliminary result Blood Culture Aerobic/Anaerobic Preliminary result Surgical Site Aerobic & Anaerobic Culture Preliminary result Surgical Site Aerobic & Anaerobic Culture Preliminary result Surgical Site Aerobic & Anaerobic Culture Preliminary result Surgical Site Aerobic & Anaerobic Culture Preliminary result Wound Aerobic And Anaerobic Culture Preliminary result Clinical Summary Carmen Gilman is a 59 y.o. male patient of Ani Worley CNP with history of Anxiety, Arrhythmia, Arthritis, COPD, DM, HTN, Left Knee Pain, Opioid Dependance, who presented to [facility] on 05/11/2025 with complaints of Rt Knee pain. Right knee wound Acute Rt Knee Pain Rt Knee Cellulitis RLE Edema Rt Knee X-Ray: no acute findings CT right knee: new perihardware lucency at the tibial plateau hardware interface and lucency in the distal femoral diaphysis. Orthopedic consult OR 05/13/25 I&D Blood cultures negative at this time Wound culture Corynebacterium species, not JK Surgical site cultures NGTD MRSA probe Negative S/P IV Zosyn/Vancomycin, 6 weeks of Keflex and Doxycycline PO COPD not in exacerbation Intermittent Home O2 use PRN bronchodilators. O2 prn Acute on chronic HFpEF TTE (2024) normal LV function with LVEF 71%; mildly enlarged RV with normal RV function. BNP 91 S/p Lasix IV BID, transition back to orals, patient refusing IV Essential Hypertension Not currently on anti-hypertensive medications Blood pressure currently stable Pre-diabetes A1c 01/2025: 6.2 Follow up outpatient Hypokalemia - resolved K+ 3.4, now 4.4 S/P potassium replacement Hyponatremia Na 134 Peripheral Neuropathy Continue gabapentin Chronic thrombocytopenia Chronic leukopenia Chronic anemia Baseline hemoglobin 10-11, current hemoglobin 11.3 Baseline platelet 110s to 120s, current platelets 120 WBC 3.11 Chronic Fatigue Reduced Mobility Medication Non-compliance PT/OT - recommended rehab facility, patient refused and wants [facility] Encouraged and discussed importance of compliance Polysubstance Abuse Previously used Suboxone NARx score reviewed UDS positive for Cocaine, Buprenorphine, and oxycodone (patient received oxycodone prior to drug screen) Obesity BMI 37.52 Encourage diet lifestyle modification Discharge Medications Discharge Medications New Medications Details cephALEXin 500 MG capsule Commonly known as: KEFLEX Take 1 (one) capsule (500 mg total) by mouth 4 (four) times a day . Quantity: 168 capsule doxycycline hyclate 100 MG tablet Commonly known as: VIBRA-TABS Take 1 (one) tablet (100 mg total) by mouth 2 (two) times a day . Quantity: 84 tablet naloxone 4 mg/actuation [place] Commonly known as: NARCAN Administer 1 spray into one nostril for known or suspected opioid overdose. If patient worsens or does not respond, may repeat in 2-3 minutes. . Quantity: 2 each oxyCODONE 5 MG immediate release tablet Commonly known as: ROXICODONE Take 1 (one) tablet (5 mg total) by mouth every 6 (six) hours as needed for pain (Days supply per fill: 3) . Quantity: 12 tablet Modified Medications Details furosemide 40 MG tablet Commonly known as: LASIX What changed: when to take this Take 1 (one) tablet (40 mg total) by mouth 2 (two) times a day . Quantity: 60 tablet Medications To Continue Details albuterol 90 mcg/actuation inhaler Inhale 2 (two) puffs every 6 (six) hours as needed for wheezing . Quantity: 18 g ammonium lactate 12 % cream Commonly known as: AMLACTIN Apply topically 2 (two) times a day . aspirin 81 MG EC tablet Take 1 (one) tablet (81 mg total) by mouth every morning . buprenorphine HCL 8 mg SL Tablet Commonly known as: SUBUTEX Place 20 mg under the tongue daily . fluticasone propion-salmeteroL 250-50 mcg/dose diskus inhaler Commonly known as: ADVAIR DISKUS Inhale 1 (one) puff 2 (two) times a day . gabapentin 800 MG tablet Commonly known as: NEURONTIN Take 1 (one) tablet (800 mg total) by mouth 4 (four) times a day . ipratropium-albuteroL 0.5-2.5 mg/3 ml nebulizer Commonly known as: DUO-NEB Take 3 mL by nebulization 4 (four) times a day as needed for wheezing or shortness of breath . meloxicam 7.5 MG tablet Commonly known as: MOBIC Take 1 (one) tablet (7.5 mg total) by mouth daily . Physician(s) Follow Up: OTHER - NOT IN [facility]-Daytime [id number] Address: [address] [place] [address] Servicing Counties: [phone] Condition at Discharge: Stable Disposition: Home with Home Health I reviewed discharge recommendations with the patient in person. Patient instructions, including activity, were given to the patient/family at discharge. On day of discharge I saw Carmen Gilman and spent: > 30 minutes on discharge. Completed by: Kathleen Dunham CNP on 05/16/25, 11:34 AM documented in this encounter [facility] 05-16-2025 Progress note Formatting of t his note might be different from the original. [id number] ENCOUNTER FOR HOME MEDICAL EQUIPMENT PATIENT: Carmen Gilman : 1965 Statement of Care: I certify that Carmen Gilman is under my care and that I, a Nurse Practitioner, had a diny-ru-[id number] encounter with this patient today to evaluate and discuss the need for home medical equipment. I certify that based on the findings of this evaluation, which included but was not limited to the [id number] requirements, the following home medical equipment is medically necessary: Tub Bench and Bariatric Wheeled Walker for the treatment of mobility limitations to enable participation in mobility-related activities of daily living (MRADL) in the home. Based on the current evaluation, patient can safely use prescribed equipment to perform mobility-related activities of daily living (MRADL) in the home.. Signed by: Kathleen Dunham CNP on 05/16/2025 [facility] 05-16-2025 Progress note Formatting of t his note might be different from the original. Pt refused morning daily weight. [facility] 05-15-2025 Plan of care note Problem: Actual or potential alteration in health Goal: Absence of healthcare acquired conditions Outcome: Partially Met Goal: Knowledge of Interdisciplinary Plan of Care Outcome: Partially Met Goal: Knowledge of Enviroment Outcome: Partially Met Problem: Pain Goal: Reduced pain sensation Outcome: Partially Met Goal: Control of acute pain to acceptable level Outcome: Partially Met Goal: Able to cope with pain Outcome: Partially Met Goal: Able to achieve maximum level of physical functioning Outcome: Partially Met Goal: Able to achieve maximum level of psychosocial functioning Outcome: Partially Met Problem: Falls, Risk of Goal: Absence of falls Outcome: Partially Met Goal: Absence of physical injury Outcome: Partially Met Problem: Pressure Injury, Risk of Goal: Absence of pressure injury Outcome: Partially Met [facility] 05-15-2025 Note [facility] al 05-15-2025 Consult note Associated Order (s): IP CONSULT TO HOME HEALTH HUB Date: 05/15/2025 Time: 3:58 PM Patient Name: Carmen Gilman Date of : 1965 Liaison received a [facility] consult for SN,PT,OT. Patient's agency choice is [facility] Name of [facility] agency: Pending / Accepted (if [facility], include region) [facility] Referrals sent to: (names of agencies) [facility] pending [facility]'s declined [facility] Infusion pharmacy: (name) Referral pending or accepted? For OPAT, TPN, or TF: (list) Referral order placed? Has script been sent? (Yes/no) n/a [facility] (orders) created for the following services: [or waiting for ____ (i.e wound care)] SN,PT,OT Verify demographics (residential address) [address] [place] [id number] What is the primary number to reach you? Who is your family physician/primary care physician? Ani Worley, ENVIRONMENTAL EMERGENCIES PLANNER Estimated Discharge Date (NATI): 05/16 If discharge needs change, please reach out to liaison assigned on treatment team as hub is not notified of new consults once team is following. Thank you. [facility] 05-15-2025 Consult note Associated Order (s): IP CONSULT TO [facility] Date: 05/15/2025 Time: 3:58 PM Patient Name: Carmen Gilman Date of : 1965 Liaison received a [facility] consult for SN,PT,OT. Patient's agency choice is [facility] Name of [facility] agency: Pending / Accepted (if [facility], include region) [facility] accepted Referrals sent to: (names of agencies) [facility] pending [facility] -accepted Infusion pharmacy: (name) Referral pending or accepted? For OPAT, TPN, or TF: (list) Referral order placed? Has script been sent? (Yes/no) n/a [facility] (orders) created for the following services: [or waiting for ____ (i.e wound care)] SN,PT,OT Verify demographics (residential address) [address] [id number] What is the primary number to reach you? Who is your family physician/primary care physician? Ani Worley, ENVIRONMENTAL EMERGENCIES PLANNER Estimated Discharge Date (NATI): 05/16 If discharge needs change, please reach out to liaison assigned on treatment team as hub is not notified of new consults once team is following. Thank you. Physical Therapy PHYSICAL THERAPY EVALUATION and TREATMENT NOTE Dx: Right knee wound, acute right knee pain , right knee cellulitis, right le edema, hypokalemia, hyponatremia, polysubstance abuse (+ cocaine, buprenorphine oxycodone) I & D total knee 05/13/25 PHYSICAL THERAPY EVALUATION Skilled Therapy Needs After Discharge Anticipate Resolution of Current Assessment Limitations Including: Pain, Mechanical Barriers Are command post craftsman Therapy Services Needed After Discharge: Yes Intensity of command post craftsman Therapy: 5 to 7 days per week (Discussed PT concerns with returning home alone/ home safety/fall prevention. Pt is refusing any short term inpt rehabilitation and states he will only be agreeable to home health PT services. Pt report ESTEBAN will help him as needed) Anticipated Duration of command post craftsman Therapy: Duration 7 - 10 days PT DME Recommendation: To be determined at next level of care (pt requesting shower bench - already has shower chair at home.) PT DME Rationale: Patient's condition prevents him/her from accomplishing ADL without recommended equipment Rehab Potential: Fair Outcomes Measures Prior Function - Basic Mobility Raw Score: 23 Points Prior Function - Basic Mobility % Impaired: 16.55% Variance: Patient refuses test (pt states that he is independant with bed mobility without rail from flat HOB, but refuses to participate in assessment this date.) Physical Therapy Assessment History: The following factors influence the patient's participation in the PT plan of care: Personal Factors: Limited Compliance, Limited Baseline Mobility, Decreased Insight, Age, Body Habitus Environmental Factors: Lives alone (apartment on 3rd floor of building - elevator between floors) The following co-morbidities (from this admission or prior) influence the patient's participation in this plan of care: see H & P Number of History elements affecting this patient's PT plan of care: 3 or more Examination of Body Systems: The patient presents with: Musculoskeletal impairments: Strength, ROM, Pain, Functional Endurance Neurologic Impairments: Balance, Sensation, Pain Cardiopulmonary Impairments: Activity Tolerance Integumentary Impairments: Active Wound, Tissue Healing, Skin Integrity. These impairments result in limitations of . These impairments result in restrictions of . Number of Body Systems elements affecting this patient's PT plan of care: . Clinical Presentation: The patient's clinical presentation for this PT evaluation is evolving with changing characteristics as evidenced by current PT documentation. Activity Tolerance Activity Tolerance: Tolerates 20 - 30 min activity with multiple rests Therapy Precautions Orthotic Devices: No Weight Bearing Status: X RLE: (no restriction per RN) General Rehab Precautions: Fall risk Strength Assessment Strength RLE RLE Overall Strength: (ROM limited by body habitus; strength assessed functionally) R Hip Flexion: 3-/5 R Knee Flexion: 4-/5 R Knee Extension: 4/5 R Ankle Dorsiflexion: 4/5 R Ankle Plantar Flexion: 4/5 Strength LLE LLE Overall Strength: (ROM limited by body habitus; strength assessed functionally) L Hip Flexion: 3-/5 L Knee Flexion: 4-/5 L Knee Extension: 4/5 L Ankle Dorsiflexion: 4/5 L Ankle Plantar Flexion: 4/5 Balance Assessment Sitting Balance - Static: Modified independent, with unilateral LUE support, with unilateral RUE support, with back unsupported Standing Balance - Static: Stand by assist, with bilateral UE support, with device Bridge Construction Inspector - Standing Static: BUE, wheeled walker Standing Balance - Dynamic: Stand by assist, with bilateral UE support, with device Bridge Construction Inspector - Standing Dynamic: BUE, wheeled walker Loss of Balance- Standing Dynamic: (unsteady with trendelenburg gait , pt will not allow for PT to have hands on gait belt for maximizing safety during PT eval.) Bed Mobility Supine to Sit: (Pt refusing to participate in bed mobiltiy. Pt states that he is independant with getting in/out of flat bed without rail. PT unsure of level of care needed as pt refusing to allow assessment.) Transfers Sit to Stand: Stand by assist (pt requires use of rocking momentum ( x5-6 ) to perform STS from recliner and EOB) Bed to Chair: Stand by assist Stand Pivot Transfers: Stand by assist Bridge Construction Inspector: BUE, wheeled walker Gait/Locomotion Gait Assistance: Stand by assist (pt walks AVA very wide, and when turning walker will not comply with safe le and walker management - increasing fall risk. Pt may benefit from wider bariatric walker due to wider stance. Care management notified.) Assistive Device: BUE, wheeled walker Distance: 20 Feet Rest Breaks: Yes Rest Break Position: standing Rest Break Duration: 30 seconds Pattern: step to, step through, R decreased step length, L decreased step length, over reliance on upper extremities, forward flexed, trendelenburg, antalgic, decreased veronica (steps per minute) (very wide AVA; toeing out soledad le's, expecially left le) Weight Bearing Status: able to maintain Gait Loss(es) of Balance: intermittent (unsteady with directional changes) Environment/Terrain: closed environment, minimal to no distractions Home Living Obtained Home Living and PLOF info from: Patient Lives With: Alone Type of Home: Apartment (3 rd floor - uses elevators between floors) Home Layout: One level (laundry on 3rd floor - done by ESTEBAN) Steps to enter home: No Bathroom Shower/Tub: Tub/shower unit Bathroom Toilet: Standard Bathroom Equipment: Grab bars in shower, Shower chair, Hand-held showerhead, Bedside commode Bathroom Accessibility: Accessible via walker Mobility Equipment: Wheeled walker, Cane, Wheelchair - manual, Home oxygen, Lift chair (pt unsure how many liters of O2 PRN) Prior Level of Function Level of Boutte - Transfers/Ambulation/Mobility: Independent with functional transfers, Independent with household ambulation (ambulates in home and in community with cane;) Level of [place]te - ADLs: (ESTEBAN washes pt hair, legs and feet) Level of [place]te - Homemaking: (ESTEBAN performs tasks) Driving: Patient drives Vocational: On disability Subjective Impression - Prior Function: pt denies any falls in last 6 months PHYSICAL THERAPY TREATMENT NOTE Total Treatment Time (Total Session Time): 28 Minutes Total Timed Code Treatment Minutes: 8 Minutes Gait Training Skilled Intervention Provided: patient education, verbal cues, monitoring patient response with activity For: attention to task, device adjustment fit to patient, device management and safe use of device, fall prevention, gait technique, improved posture, LE management, LE positioning, self-monitoring during activity Resulting in: decreased safety Therapeutic Activities Transfers Skilled Intervention Provided: patient education, verbal cues, monitoring patient response with activity, monitoring patient response with positional changes For: UE positioning, weight shifting, breathing techniques, efficient movement, fall prevention, safety during functional tasks, safe use of AD and/or equipment Resulting in: decreased safety (Pt refusing any education on safety.) Additional Treatment Details Pt sitting up in chair up PT arrival. Pt initially refused to allow gait belt to be donned but then agreeable, but pt would raise voice at therapist and say " don't touch the belt!". PT educated pt on purpose of gait belt use , but pt continued to refuse to allow PT to utilize properly on pt. Pt very SOB with 10 ft of ambulation, requiring ~30 seconds of standing rest with deep breathing to return an additional 10 ft to EOB. SpO2 94-95% on RA. Discussed PT concerns with returning home alone regarding home safety and fall prevention. Pt reports " I'm going home!" Pt reports that ESTEBAN can assist him with needs at home. Pt is refusing any short term inpt rehabilitation and states he will only be agreeable to home health PT services. Pt also states he wants aide services as well. Pt up in chair post PT session with alarm place, but then pt raised voice again at PT and stated " get that off of me!". PT educated pt on fall prevention and alarm use, but pt refused to allow alarm to be donned. RN notified. Pt is unsafe to return home alone. Pt will need assist for safety of all functional mobility and ADL tasks. Handoff provided to RN. Past Medical History: Diagnosis Date Anxiety Arrhythmia Arthritis Asthma COPD (chronic obstructive pulmonary disease) ([facility]) Sometimes uses home O2 Diabetes (HCC) Hypertension Knee pain, left Leg swelling Opioid dependence ([facility]) Secondary adrenal insufficiency 04/30/2022 left AMA 04/30/22 without treatment Past Surgical History: Procedure Laterality Date APPENDECTOMY ARTHROPLASTY KNEE TOTAL ROBOTIC ASSISTED Right 01/08/2020 Procedure: Right Total Knee Replacement Robotic; Surgeon: Sofía Dukes MD; Location: Main OR; Service: Ortho-Robotics DEBRIDEMENT WITH WOUND CLOSURE POSS SKIN GRAFT LOWER EXTR Right 06/03/2023 Procedure: RIGHT LATERAL LEG Debridement with VERSAJET; Surgeon: ALEXEY Radford DPM; Location: Main OR; Service: Podiatry FOOT SURGERY Left INCISION AND DRAINAGE TOTAL KNEE Right 05/13/2025 Procedure: INCISION AND DRAINAGE TOTAL KNEE; Surgeon: Sofía Dukes MD; Location: Main OR; Service: Orthopedic; Laterality: Right; MANDIBLE FRACTURE SURGERY ORTHOPEDIC SURGERY Right knee SKIN GRAFT SPLIT THICKNESS LOWER EXTREMITY Right 08/05/2023 Procedure: RIGHT LOWER LEG SPLIT THICKNESS SKIN GRAFT; Surgeon: Cecilia Gonzales DPM; Location: Main OR; Service: Podiatry THORACIC DUCT LIGATION 01/15/2017 THORACIC DUCT LIGATION US ECHO COMP 05/2023 EF- 65-70%, pulm htn WOUND VAC Right 06/03/2023 Procedure: APPLICATION WOUND VAC; Surgeon: ALEXEY Radford DPM; Location: Main OR; Service: Podiatry For complete objective data, detailed plan of care and patient education refer to: PT Evaluation flowsheet, PT Evaluation and Treatment flowsheet, PT Treatment flowsheet, patient Plan of Care, Plan of Care progress note, and Patient Education. This note stands as the current Discharge Summary upon patient discharge from the hospital or completion of Physical Therapy Plan. Associated Order(s): IP CONSULT TO CARE MANAGEMENT Date: 05/13/2025 Time: 2:44 PM Patient Name: Carmen Gilman Date of : 1965 Reason for Consult: Discharge Plan Discussion: Met with patient at bedside. Introduced role. Patient was just recently discharged from [facility] on 04[facility]/25 to [facility]. Patient signed himself out AMA on 04/09/25. There were no services set up because of the AMA status. Patient reported that he lives by himself or a friend is there and his son in law-Clay helps him a lot. Patient very anxious and fidgety stating he was nervous for surgery and didn't know what he was going to need. This worker asked if he had DPOA or Living Will and he stated that he didn't and declined completion or packet. He did say that his siter Aliyah would be who he wanted to make decisions if he was not able. This worker will follow up after surgery and assist with any discharge needs/planning. Patient most likely will need IV antibiotics at discharge Discharge Plan: Plan A: Home Health Care Services Plan A : Post Acute Patient Choice 1: [facility] at Home/[facility] Plan B: [facility] Transportation Assessment and Background Information: Family aware of the patient's advance care planning wishes:: No Medication adherence problem:: No History of falls in last 6 months:: No Do you have any cultural/spiritual connections or beliefs that would impact how we deliver your care?: No Chronic pain:: (!) Yes Advance Directives: Advance Directive: Patient does not have advance directive, would not like information Who do you want to support you when making healthcare decisions?: Aliyah his sister Information Provided on Healthcare Directives: No Patient Support: Does Patient have a PCP?: Yes Living Arrangements: Family members Type of Residence: Private residence Support Systems: Family members Assistance Needed: yes Current Home Equipment: Cane Caregiver Assessment: SDOH: ATTENDING PHYSICIAN [facility] PHYSICIAN ANI WORLEY CNP ADMITTING PHYSICIAN CARMEN CHARLES MD CONSULTING PHYSICIAN SOFÍA DUKES MD This is an orthopedic consultation. Carmen is a 59-year-old patient in very poor medical condition who was seen in the orthopedic office for an ulcer over his right lateral knee. He had knee replacement over five years ago. The gentleman had an aspiration from the medial aspect of his knee. Worried about potential septic knee. Cultures, so far, are negative. However, he is in just a very poor medical state with an ulcer of his right leg that needs significant wound debridement. Bilateral lower extremity cellulitis is noted, and at this time, on admission, I recommend that we proceed forward with sepsis workup as well as peripheral blood cultures and peripheral cultures for his significant lower extremity cellulitis. PAST MEDICAL HISTORY Anxiety. Heart arrhythmia. Asthma. COPD. Diabetes. Hypertension. Chronic lymphedema. Adrenal insufficiency. Chronic leg swelling. SURGERIES He has had appendectomy. He has had right knee replacement. He has apparently had wound debridement of his right leg. He has had left foot surgery. He has had thoracic back surgery. FAMILY HISTORY Heart disease and diabetes. SOCIAL HISTORY He chews. ALLERGIES Naloxone. MEDICATIONS Include: Albuterol. Aspirin. Subutex. Oral clindamycin at home. Advair. Lasix. Neurontin. Ipratropium. Meloxicam. He is currently on Zosyn and vancomycin. LABORATORY EVALUATION Knee aspiration cultures from May 09 are negative so far. Blood cultures are pending. Lactic acid 1.9. PHYSICAL EXAMINATION General: He is awake. He is in the emergency room. Skin: He has a large ulcer on the lateral aspect of his right knee. He has a mild knee effusion. He has, at this point in time, significant swelling in both legs with the difficulty on attempting to palpate any pulses. A 3 x 3 cm ulcer over the lateral aspect of his right knee. IMAGING DATA X-rays of the right knee show a normal-appearing knee replacement. IMPRESSION 1. Right knee chronic ulcer. 2. Possible culture-negative septic right knee. 3. Chronic lymphedema of the bilateral lower extremities with chronic cellulitis. 4. Arterial and venous insufficiency. PLAN We need to proceed forward with an irrigation, debridement, wound vacuum-assisted closure application to this right knee. We also need intravenous antibiotics to clear up the cellulitis. At this time, I am planning on at operating room debridement on 05/13/2025. D 05/12/2025 09:47 [id number] 05/12/2025 10:17 MCB/MODL documented in this encounter [facility] 05-15-2025 Consult note Formatting of th is note is different from the original. Physical Therapy PHYSICAL THERAPY EVALUATION and TREATMENT NOTE Dx: Right knee wound, acute right knee pain , right knee cellulitis, right le edema, hypokalemia, hyponatremia, polysubstance abuse (+ cocaine, buprenorphine oxycodone) I & D total knee 05/13/25 PHYSICAL THERAPY EVALUATION Skilled Therapy Needs After Discharge Anticipate Resolution of Current Assessment Limitations Including: Pain, Mechanical Barriers Are command post craftsman Therapy Services Needed After Discharge: Yes Intensity of command post craftsman Therapy: 5 to 7 days per week (Discussed PT concerns with returning home alone/ home safety/fall prevention. Pt is refusing any short term inpt rehabilitation and states he will only be agreeable to home health PT services. Pt report ESTEBAN will help him as needed) Anticipated Duration of command post craftsman Therapy: Duration 7 - 10 days PT DME Recommendation: To be determined at next level of care (pt requesting shower bench - already has shower chair at home.) PT DME Rationale: Patient's condition prevents him/her from accomplishing ADL without recommended equipment Rehab Potential: Fair Outcomes Measures Prior Function - Basic Mobility Raw Score: 23 Points Prior Function - Basic Mobility % Impaired: 16.55% Variance: Patient refuses test (pt states that he is independant with bed mobility without rail from flat HOB, but refuses to participate in assessment this date.) Physical Therapy Assessment History: The following factors influence the patient's participation in the PT plan of care: Personal Factors: Limited Compliance, Limited Baseline Mobility, Decreased Insight, Age, Body Habitus Environmental Factors: Lives alone (apartment on 3rd floor of building - elevator between floors) The following co-morbidities (from this admission or prior) influence the patient's participation in this plan of care: see H & P Number of History elements affecting this patient's PT plan of care: 3 or more Examination of Body Systems: The patient presents with: Musculoskeletal impairments: Strength, ROM, Pain, Functional Endurance Neurologic Impairments: Balance, Sensation, Pain Cardiopulmonary Impairments: Activity Tolerance Integumentary Impairments: Active Wound, Tissue Healing, Skin Integrity. These impairments result in limitations of . These impairments result in restrictions of . Number of Body Systems elements affecting this patient's PT plan of care: . Clinical Presentation: The patient's clinical presentation for this PT evaluation is evolving with changing characteristics as evidenced by current PT documentation. Activity Tolerance Activity Tolerance: Tolerates 20 - 30 min activity with multiple rests Therapy Precautions Orthotic Devices: No Weight Bearing Status: X RLE: (no restriction per RN) General Rehab Precautions: Fall risk Strength Assessment Strength RLE RLE Overall Strength: (ROM limited by body habitus; strength assessed functionally) R Hip Flexion: 3-/5 R Knee Flexion: 4-/5 R Knee Extension: 4/5 R Ankle Dorsiflexion: 4/5 R Ankle Plantar Flexion: 4/5 Strength LLE LLE Overall Strength: (ROM limited by body habitus; strength assessed functionally) L Hip Flexion: 3-/5 L Knee Flexion: 4-/5 L Knee Extension: 4/5 L Ankle Dorsiflexion: 4/5 L Ankle Plantar Flexion: 4/5 Balance Assessment Sitting Balance - Static: Modified independent, with unilateral LUE support, with unilateral RUE support, with back unsupported Standing Balance - Static: Stand by assist, with bilateral UE support, with device Bridge Construction Inspector - Standing Static: BUE, wheeled walker Standing Balance - Dynamic: Stand by assist, with bilateral UE support, with device Bridge Construction Inspector - Standing Dynamic: BUE, wheeled walker Loss of Balance- Standing Dynamic: (unsteady with trendelenburg gait , pt will not allow for PT to have hands on gait belt for maximizing safety during PT eval.) Bed Mobility Supine to Sit: (Pt refusing to participate in bed mobiltiy. Pt states that he is independant with getting in/out of flat bed without rail. PT unsure of level of care needed as pt refusing to allow assessment.) Transfers Sit to Stand: Stand by assist (pt requires use of rocking momentum ( x5-6 ) to perform STS from recliner and EOB) Bed to Chair: Stand by assist Stand Pivot Transfers: Stand by assist Bridge Construction Inspector: BUE, wheeled walker Gait/Locomotion Gait Assistance: Stand by assist (pt walks AVA very wide, and when turning walker will not comply with safe le and walker management - increasing fall risk. Pt may benefit from wider bariatric walker due to wider stance. Care management notified.) Assistive Device: BUE, wheeled walker Distance: 20 Feet Rest Breaks: Yes Rest Break Position: standing Rest Break Duration: 30 seconds Pattern: step to, step through, R decreased step length, L decreased step length, over reliance on upper extremities, forward flexed, trendelenburg, antalgic, decreased veronica (steps per minute) (very wide AVA; toeing out soledad le's, expecially left le) Weight Bearing Status: able to maintain Gait Loss(es) of Balance: intermittent (unsteady with directional changes) Environment/Terrain: closed environment, minimal to no distractions Home Living Obtained Home Living and PLOF info from: Patient Lives With: Alone Type of Home: Apartment (3 rd floor - uses elevators between floors) Home Layout: One level (laundry on 3rd floor - done by ESTEBAN) Steps to enter home: No Bathroom Shower/Tub: Tub/shower unit Bathroom Toilet: Standard Bathroom Equipment: Grab bars in shower, Shower chair, Hand-held showerhead, Bedside commode Bathroom Accessibility: Accessible via walker Mobility Equipment: Wheeled walker, Cane, Wheelchair - manual, Home oxygen, Lift chair (pt unsure how many liters of O2 PRN) Prior Level of Function Level of Boutte - Transfers/Ambulation/Mobility: Independent with functional transfers, Independent with household ambulation (ambulates in home and in community with cane;) Level of Boutte - ADLs: (ESTEBAN washes pt hair, legs and feet) Level of Boutte - Homemaking: (ESTEBAN performs tasks) Driving: Patient drives Vocational: On disability Subjective Impression - Prior Function: pt denies any falls in last 6 months PHYSICAL THERAPY TREATMENT NOTE Total Treatment Time (Total Session Time): 28 Minutes Total Timed Code Treatment Minutes: 8 Minutes Gait Training Skilled Intervention Provided: patient education, verbal cues, monitoring patient response with activity For: attention to task, device adjustment fit to patient, device management and safe use of device, fall prevention, gait technique, improved posture, LE management, LE positioning, self-monitoring during activity Resulting in: decreased safety Therapeutic Activities Transfers Skilled Intervention Provided: patient education, verbal cues, monitoring patient response with activity, monitoring patient response with positional changes For: UE positioning, weight shifting, breathing techniques, efficient movement, fall prevention, safety during functional tasks, safe use of AD and/or equipment Resulting in: decreased safety (Pt refusing any education on safety.) Additional Treatment Details Pt sitting up in chair up PT arrival. Pt initially refused to allow gait belt to be donned but then agreeable, but pt would raise voice at therapist and say " don't touch the belt!". PT educated pt on purpose of gait belt use , but pt continued to refuse to allow PT to utilize properly on pt. Pt very SOB with 10 ft of ambulation, requiring ~30 seconds of standing rest with deep breathing to return an additional 10 ft to EOB. SpO2 94-95% on RA. Discussed PT concerns with returning home alone regarding home safety and fall prevention. Pt reports " I'm going home!" Pt reports that ESTEBAN can assist him with needs at home. Pt is refusing any short term inpt rehabilitation and states he will only be agreeable to home health PT services. Pt also states he wants aide services as well. Pt up in chair post PT session with alarm place, but then pt raised voice again at PT and stated " get that off of me!". PT educated pt on fall prevention and alarm use, but pt refused to allow alarm to be donned. RN notified. Pt is unsafe to return home alone. Pt will need assist for safety of all functional mobility and ADL tasks. Handoff provided to RN. Past Medical History: Diagnosis Date Anxiety Arrhythmia Arthritis Asthma COPD (chronic obstructive pulmonary disease) ([facility]) Sometimes uses home O2 Diabetes (HCC) Hypertension Knee pain, left Leg swelling Opioid dependence ([facility]) Secondary adrenal insufficiency 04/30/2022 left AMA 04/30/22 without treatment Past Surgical History: Procedure Laterality Date APPENDECTOMY ARTHROPLASTY KNEE TOTAL ROBOTIC ASSISTED Right 01/08/2020 Procedure: Right Total Knee Replacement Robotic; Surgeon: Sofía Dukes MD; Location: Main OR; Service: Ortho-Robotics DEBRIDEMENT WITH WOUND CLOSURE POSS SKIN GRAFT LOWER EXTR Right 06/03/2023 Procedure: RIGHT LATERAL LEG Debridement with VERSAJET; Surgeon: ALEXEY Radford, DPMicheal; Location: Main OR; Service: Podiatry FOOT SURGERY Left INCISION AND DRAINAGE TOTAL KNEE Right 05/13/2025 Procedure: INCISION AND DRAINAGE TOTAL KNEE; Surgeon: Sofía Dukes MD; Location: Main OR; Service: Orthopedic; Laterality: Right; MANDIBLE FRACTURE SURGERY ORTHOPEDIC SURGERY Right knee SKIN GRAFT SPLIT THICKNESS LOWER EXTREMITY Right 08/05/2023 Procedure: RIGHT LOWER LEG SPLIT THICKNESS SKIN GRAFT; Surgeon: Cecilia Gonzales DPM; Location: Main OR; Service: Podiatry THORACIC DUCT LIGATION 01/15/2017 THORACIC DUCT LIGATION US ECHO COMP 05/2023 EF- 65-70%, pulm htn WOUND VAC Right 06/03/2023 Procedure: APPLICATION WOUND VAC; Surgeon: ALEXEY Radford DPM; Location: Main OR; Service: Podiatry For complete objective data, detailed plan of care and patient education refer to: PT Evaluation flowsheet, PT Evaluation and Treatment flowsheet, PT Treatment flowsheet, patient Plan of Care, Plan of Care progress note, and Patient Education. This note stands as the current Discharge Summary upon patient discharge from the hospital or completion of Physical Therapy Plan. [facility] 05-15-2025 [facility] Plan of care note Problem: Actual or potential alteration in health Goal: Absence of healthcare acquired conditions Outcome: Partially Met Goal: Knowledge of Interdisciplinary Plan of Care Outcome: Partially Met Goal: Knowledge of Enviroment Outcome: Partially Met Problem: Pain Goal: Reduced pain sensation Outcome: Partially Met Goal: Control of acute pain to acceptable level Outcome: Partially Met Goal: Able to cope with pain Outcome: Partially Met Goal: Able to achieve maximum level of physical functioning Outcome: Partially Met Goal: Able to achieve maximum level of psychosocial functioning Outcome: Partially Met Problem: Falls, Risk of Goal: Absence of falls Outcome: Partially Met Goal: Absence of physical injury Outcome: Partially Met Problem: Pressure Injury, Risk of Goal: Absence of pressure injury Outcome: Partially Met [facility] 05-15-2025 Plan of care note Problem: Actual or potential alteration in health Goal: Absence of healthcare acquired conditions Outcome: Partially Met Goal: Knowledge of Interdisciplinary Plan of Care Outcome: Partially Met Goal: Knowledge of Enviroment Outcome: Partially Met [facility] 05-14-2025 Note [facility] 05-14-2025 Progress note Formatting of t his note might be different from the original. Pt refused insulin and cardiac/spo2 monitoring at this time. Pt educated about risks and states he will stop having as much sugar with meals. [employer] notified. T [facility] 05-14-2025 Note [facility] 05-14-2025 Note Formatting of this n ote might be different from the original. PHYSICAL THERAPY VISIT VARIANCE NOTE Attempted to see patient at this time, but unable secondary to: pt refused despite encouragement and education . Will follow up as appropriate. [facility] 05-14-2025 Note Formatting of this n ote might be different from the original. OCCUPATIONAL THERAPY VISIT VARIANCE NOTE Attempted to see patient at this time, but unable secondary to: Refused, reporting he wants to rest and try to get up later. Will follow up as appropriate. T [facility] 05-14-2025 Plan of care note Problem: Actual or potential alteration in health Goal: Absence of healthcare acquired conditions Outcome: Partially Met Goal: Knowledge of Interdisciplinary Plan of Care Outcome: Partially Met Goal: Knowledge of Enviroment Outcome: Partially Met Problem: Pain Goal: Reduced pain sensation Outcome: Partially Met Goal: Control of acute pain to acceptable level Outcome: Partially Met Goal: Able to cope with pain Outcome: Partially Met Goal: Able to achieve maximum level of physical functioning Outcome: Partially Met Goal: Able to achieve maximum level of psychosocial functioning Outcome: Partially Met Problem: Falls, Risk of Goal: Absence of falls Outcome: Partially Met Goal: Absence of physical injury Outcome: Partially Met Problem: Pressure Injury, Risk of Goal: Absence of pressure injury Outcome: Partially Met [facility] 05-13-2025 Procedure note Brief Post Operative Note Patient Name: Carmen Gilman : 1965 (59 y.o.) Date of Service: 05/13/2025 [facility]: [id number] Procedure(s): INCISION AND DRAINAGE TOTAL KNEE Pre-Operative Diagnoses: * Right knee skin infection/abscess Post-Operative Diagnoses: * Same as Pre-Op Diagnosis Surgeons and Role: * Sofía Dukes MD - Primary Anesthesiologist: Bryson Kelley MD Anesthesiologist Belt Maker: Veronica Knapp AA Ekg Manager: Abigail Camejo Scrub Person: Patel Burns ST COMPUTER INSTALLATION ENGINEER: Roseanna Oliveros RN Operative findings: see op note Intra and immediate post-operative complications: none Type of anesthesia used: General Estimated blood loss: 5 mL Estimated urine output: Specimen(s): ID Type Source Tests Collected by Time Destination 1 : RIGHT KNEE INCISION AND DRAINAGE Synovial Fluid Joint, Please Specify ALPHA DEFENSIN Sofía Dukes MD 05/13/2025 1639 2 : SKIN SWAB 1 OUT OF 2 Swab Knee, Right SURGICAL SITE AEROBIC AND ANAEROBIC CULTURE Sofía Dukes MD 05/13/2025 1642 3 : SKIN SWAB 2 OF 2 Swab Knee, Right SURGICAL SITE AEROBIC AND ANAEROBIC CULTURE Sofía Dukes MD 05/13/2025 1643 4 : JOINT SWAB 1 OUT OF 2 Swab Knee, Right SURGICAL SITE AEROBIC AND ANAEROBIC CULTURE Sofía Dukes MD 05/13/2025 1643 5 : JOINT SWAB 2 OUT OF 2 Swab Knee, Right SURGICAL SITE AEROBIC AND ANAEROBIC CULTURE Sofía Dukes MD 05/13/2025 1644 Implant(s): * No implants in log * Drain(s): * No LDAs found * Wound(s): Wound 11/16/24 Foot Right;Mid;Plantar (Active) Dressing Status Open to air 05/13/25 0810 Drainage Amount None 05/13/25 0047 Drainage Description None 05/13/25 0047 Odor Mild 05/13/25 0047 Wound 04/03/25 Chronic Knee Right;Lateral (Active) Dressing Status Clean;Dry;Intact 05/13/25 0810 Drainage Amount Small 05/12/252019 Drainage Description Hernandez 05/12/252019 Wound Characteristics Edema;Fragile;Moist 05/12/25 1437 Primary Dressing Gauze pad 05/12/25 1437 Secondary Dressing Gauze roll (e.g Kerlix) 05/12/25 1437 Wound 04/03/25 Chronic Pre-tibial Right;Lateral (Active) Dressing Status Open to air 05/13/25 0810 Drainage Amount None 05/12/252019 Drainage Description MAULIK 05/12/252019 Odor Mild 05/12/252019 Wound 05/13/25 Knee Anterior;Right (Active) Wound Closure Approximated;Sutures;Surgical Adhesive 05/11/25 0001 Did the case consist of ANY colon or uterine surgery? NO Sofía Dukes MD 05/13/2025 4:57 PM [facility] 05-13-2025 Procedure note [facility]IC[facility]ARE PHYSICIAN ANI WORLEY CNP ADMITTING PHYSICIAN CARMEN CHARLES MD CONSULTING PHYSICIAN SOFÍA DUKES MD PREOPERATIVE DIAGNOSES 1. History of right total knee replacement over 5 years ago. 2. History of right knee skin infection with abscess, status post 2 years. 3. Recurrent right knee skin abscess. POSTOPERATIVE DIAGNOSES 1. History of right total knee replacement over 5 years ago. 2. History of right knee skin infection with abscess, status post 2 years. 3. Recurrent right knee skin abscess. PROCEDURE Incision skin abscess, right knee with irrigation, debridement, and delayed primary closure. Debridement of skin, subcutaneous adipose measuring 1 x 2 cm. SPECIMENS 1. The knee joint Synovasure. 2. Aerobic and anaerobic cultures x2. 3. Right knee lateral wound cultures. ESTIMATED BLOOD LOSS 5 cc. No tourniquet was used. Surgeon Dr. Sofía Dukes HISTORY Carmen is a 59-year-old gentleman who I did a knee replacement on 5 years ago, was doing very well however developed a wound on the lateral aspect of his right knee. He has a history of a chronic lymphedema, cellulitis, and venous insufficiency in both lower extremities. The patient was admitted for medical maximization and presents for incision and drainage of this abscess. The patient was explained all the risks and complications of surgery including, but not limited to, the risk of infection, bleeding, neurologic or vascular injury, possibility of deep venous thrombosis, pulmonary embolism, myocardial infarction, stroke, or even with surgery. Explained that there is a possibility that if in fact there were a septic total knee replacement that we could be looking at a resection arthroplasty with antibiotic spacer. He understands that at this time and consents for surgical intervention. PROCEDURE IN DETAIL Patient met in preoperative holding where the right knee was confirmed to be the appropriate site and marked by myself. The gentleman at this point in time has a 1 x 2 cm abscess with surrounding drainage. The right leg was marked. He was taken to the operative suite. He has been receiving antibiotics on the medical floor including vancomycin. The patient was given preoperative Kefzol per protocol. After general anesthetic the right lower extremity was then sterilely prepped and draped using ChloraPrep solution. After sterilization of the right leg we did our final time-out to confirm that the right knee was the appropriate site. We at this time through a superomedial approach, obtained 5 cc of bloody serous fluid which was sent for Synovasure as well as aerobic and anaerobic cultures x2. After this was completed, we went laterally, excised the abscess with skin and subcutaneous adipose measuring 1 x 2 cm in an elliptical type fashion. There did not appear to be any deep fistula penetration into the knee joint. We then irrigated it with copious Irrisept and Surgiphor irrigation. This wound was then closed with 0 Prolene suture, placed in a sterile dressing, extubated, taken to PACU without intraoperative complication. D 05/13/2025 17:01 [id number] 05/13/2025 17:45 MCB/MODL [facility] 05-13-2025 Attending History and physical note INTERVAL HISTORY AND PHYSICAL Patient Name: Carmen Gilman Admit Date: [id number] MR #: [id number] : 1965 The H&P has been reviewed and the patient has been examined. I concur with the findings of the H&P. There are no significant changes. It is appropriate to proceed with the planned procedure. Sedation Plan: Per Anesthesia Provider Sofía Dukes MD 05/13/2025 3:39 PM Source Note - Sofía Dukes MD - 05/12/2025 9:43 AM EDT ATTENDING PHYSICIAN [facility] PRIMARY CARE PHYSICIAN ANI WORLEY CNP ADMITTING PHYSICIAN CARMEN CHARLES MD CONSULTING PHYSICIAN SOFÍA DUKES MD This is an orthopedic consultation. Carmen is a 59-year-old patient in very poor medical condition who was seen in the orthopedic office for an ulcer over his right lateral knee. He had knee replacement over five years ago. The gentleman had an aspiration from the medial aspect of his knee. Worried about potential septic knee. Cultures, so far, are negative. However, he is in just a very poor medical state with an ulcer of his right leg that needs significant wound debridement. Bilateral lower extremity cellulitis is noted, and at this time, on admission, I recommend that we proceed forward with sepsis workup as well as peripheral blood cultures and peripheral cultures for his significant lower extremity cellulitis. PAST MEDICAL HISTORY Anxiety. Heart arrhythmia. Asthma. COPD. Diabetes. Hypertension. Chronic lymphedema. Adrenal insufficiency. Chronic leg swelling. SURGERIES He has had appendectomy. He has had right knee replacement. He has apparently had wound debridement of his right leg. He has had left foot surgery. He has had thoracic back surgery. FAMILY HISTORY Heart disease and diabetes. SOCIAL HISTORY He chews. ALLERGIES Naloxone. MEDICATIONS Include: Albuterol. Aspirin. Subutex. Oral clindamycin at home. Advair. Lasix. Neurontin. Ipratropium. Meloxicam. He is currently on Zosyn and vancomycin. LABORATORY EVALUATION Knee aspiration cultures from May 09 are negative so far. Blood cultures are pending. Lactic acid 1.9. PHYSICAL EXAMINATION General: He is awake. He is in the emergency room. Skin: He has a large ulcer on the lateral aspect of his right knee. He has a mild knee effusion. He has, at this point in time, significant swelling in both legs with the difficulty on attempting to palpate any pulses. A 3 x 3 cm ulcer over the lateral aspect of his right knee. IMAGING DATA X-rays of the right knee show a normal-appearing knee replacement. IMPRESSION 1. Right knee chronic ulcer. 2. Possible culture-negative septic right knee. 3. Chronic lymphedema of the bilateral lower extremities with chronic cellulitis. 4. Arterial and venous insufficiency. PLAN We need to proceed forward with an irrigation, debridement, wound vacuum-assisted closure application to this right knee. We also need intravenous antibiotics to clear up the cellulitis. At this time, I am planning on at operating room debridement on 05/13/2025. D 05/12/2025 09:47 [id number] 05/12/2025 10:17 MCB/MODL [facility] 05-13-2025 History and physical note INTERVAL HISTORY AND PHYSICAL Patient Name: Carmen Gilman Admit Date: [id number] MR #: [id number] : 1965 The H&P has been reviewed and the patient has been examined. I concur with the findings of the H&P. There are no significant changes. It is appropriate to proceed with the planned procedure. Sedation Plan: Per Anesthesia Provider Sofía Dukes MD 05/13/2025 3:39 PM Source Note - Sofía Dukes MD - 05/12/2025 9:43 AM EDT ATTENDING PHYSICIAN TATA [facility] PRIMARY CARE PHYSICIAN ANI WORLEY CNP ADMITTING PHYSICIAN CARMEN CHARLES MD CONSULTING PHYSICIAN SOFÍA DUKES MD This is an orthopedic consultation. Carmen is a 59-year-old patient in very poor medical condition who was seen in the orthopedic office for an ulcer over his right lateral knee. He had knee replacement over five years ago. The gentleman had an aspiration from the medial aspect of his knee. Worried about potential septic knee. Cultures, so far, are negative. However, he is in just a very poor medical state with an ulcer of his right leg that needs significant wound debridement. Bilateral lower extremity cellulitis is noted, and at this time, on admission, I recommend that we proceed forward with sepsis workup as well as peripheral blood cultures and peripheral cultures for his significant lower extremity cellulitis. PAST MEDICAL HISTORY Anxiety. Heart arrhythmia. Asthma. COPD. Diabetes. Hypertension. Chronic lymphedema. Adrenal insufficiency. Chronic leg swelling. SURGERIES He has had appendectomy. He has had right knee replacement. He has apparently had wound debridement of his right leg. He has had left foot surgery. He has had thoracic back surgery. FAMILY HISTORY Heart disease and diabetes. SOCIAL HISTORY He chews. ALLERGIES Naloxone. MEDICATIONS Include: Albuterol. Aspirin. Subutex. Oral clindamycin at home. Advair. Lasix. Neurontin. Ipratropium. Meloxicam. He is currently on Zosyn and vancomycin. LABORATORY EVALUATION Knee aspiration cultures from May 09 are negative so far. Blood cultures are pending. Lactic acid 1.9. PHYSICAL EXAMINATION General: He is awake. He is in the emergency room. Skin: He has a large ulcer on the lateral aspect of his right knee. He has a mild knee effusion. He has, at this point in time, significant swelling in both legs with the difficulty on attempting to palpate any pulses. A 3 x 3 cm ulcer over the lateral aspect of his right knee. IMAGING DATA X-rays of the right knee show a normal-appearing knee replacement. IMPRESSION 1. Right knee chronic ulcer. 2. Possible culture-negative septic right knee. 3. Chronic lymphedema of the bilateral lower extremities with chronic cellulitis. 4. Arterial and venous insufficiency. PLAN We need to proceed forward with an irrigation, debridement, wound vacuum-assisted closure application to this right knee. We also need intravenous antibiotics to clear up the cellulitis. At this time, I am planning on at operating room debridement on 05/13/2025. D 05/12/2025 09:47 [id number] 05/12/2025 10:17 MCB/MODL HMS HISTORY AND PHYSICAL -- [facility] Patient name: Carmen Gilman Date of : 1965 Admission date: 05/11/2025 Physicians: Ani Worley CNP (Family); No ref. provider found (Referring) Carmen Gilman is a 59 y.o. male patient of Ani Worley CNP with history of Anxiety, Arrhythmia, Arthritis, COPD, DM, HTN, Left Knee Pain, Opioid Dependance, who presented to [facility] on 05/11/2025 with complaints of Rt Knee pain, Rt knee wound (TKR). Mr. Gilman is alone at the time of exam and is a fair historian Rt Knee Wound w/ Drainage Acute Rt Knee Pain Rt Knee Cellulitis RLE Edema Rt Knee X-Ray: no acute findings WBC: 4.46 Lactic Acid: 1.9 BCX x2: P Wound Cx: P Abx: Vanc and Zosyn Consult Ortho: P Tentative Plan OR Mon Consult Vascular: P COPD not in exacerbation Intermittent Home O2 use Cont home Inhaler O2 prn HTN Hx HFpEF 05/2023 Echo: EF 65-70%. Pulm HTN Cont home Lasix every day- pt has not been taking every day as it is difficult to ambulate to the bathroom. DM Neuropathy Obesity 01/2025 HGA1C: 6.2 Pt denies being dm, does not check BS BS AC & HS w SSI DM Diet Cont home Gabapentin Anemia HH: 11.5/38.9 (9.8/32.7) Goal Hgb >7.0 Chronic Fatigue Reduced Mobility Medication Non-compliance PTOT Case Management for Dc need Encouraged and discussed importance of compliance Admitted with the following risk variables: Electrolyte Disturbance: Hyponatremia and Chronic Fatigue/Reduced Mobility . Residence prior to admission: house or apartment Quality measures DVT prophylaxis: lovenox and foot pumps Tavera catheter: absent Medication reconciliation: verified Patient and/or family has been told expected day of discharge is: 1-2 days Potential social barriers to discharge include: none Code status Full Code; code status verified on 05/12/2025 with patient (capacity intact) Chief complaint Rt Knee Pain and Rt knee wound History of present illness Mr. Gilman presented to the ED with complaints of Rt knee pain and Rt knee wound with significant drainage that began a few months ago. Mr. Gilman states that he originally had knee surgery in [address] Dukes and he noticed an open wound a couple of mths ago. He followed up with PCP who prescribed abx, but it didn't fix the drainage. Mr. Gilman was then evaluated by Dr. Dukes in the office on 05/09. He was told that he needed to go to the hospital and that he would need abx and surgery most likely on Tuesday. Mr. Gilman states that the pain is constant, aching, sharp. Activity makes the pain worse, rest helps a little, medication helps the most. He denies nausea, fever, chills, chest pain, cough, diarrhea. He also states that the drainage changes in color, sometimes it is yellow, bloody, more clear. While in the ED, imaging was negative or acute process. WBC 4.4. LA wnl. Blood and wound cx were obtained. Mr. Gilman is being admitted for abx and likely surgery on Tuesday with Dr. Dukes. Past medical history Past Medical History: Diagnosis Date Anxiety Arrhythmia Arthritis Asthma COPD (chronic obstructive pulmonary disease) ([facility]) Sometimes uses home O2 Diabetes ([facility]) Hypertension Knee pain, left Leg swelling Opioid dependence ([facility]) Secondary adrenal insufficiency 04/30/2022 left AMA 04/30/22 without treatment Past surgical history Past Surgical History: Procedure Laterality Date APPENDECTOMY ARTHROPLASTY KNEE TOTAL ROBOTIC ASSISTED Right 01/08/2020 Procedure: Right Total Knee Replacement Robotic; Surgeon: Sofía Dukes MD; Location: Main OR; Service: Ortho-Robotics DEBRIDEMENT WITH WOUND CLOSURE POSS SKIN GRAFT LOWER EXTR Right 06/03/2023 Procedure: RIGHT LATERAL LEG Debridement with VERSAJET; Surgeon: ALEXEY Radford, YURIDIA; Location: Main OR; Service: Podiatry FOOT SURGERY Left MANDIBLE FRACTURE SURGERY ORTHOPEDIC SURGERY Right knee SKIN GRAFT SPLIT THICKNESS LOWER EXTREMITY Right 08/05/2023 Procedure: RIGHT LOWER LEG SPLIT THICKNESS SKIN GRAFT; Surgeon: Cecilia Gonzales DPM; Location: Main OR; Service: Podiatry THORACIC DUCT LIGATION 01/15/2017 THORACIC DUCT LIGATION US ECHO COMP 05/2023 EF- 65-70%, pulm htn WOUND VAC Right 06/03/2023 Procedure: APPLICATION WOUND VAC; Surgeon: ALEEXY Radford DPM; Location: Main OR; Service: Podiatry Family history Family History Problem Relation Age of Onset Heart disease Mother Diabetes Mother Social history Tobacco Use History[1] Social History Substance and Sexual Activity Alcohol Use Not Currently Social History Substance and Sexual Activity Drug Use Not Currently Types: Marijuana Allergy information I have reviewed the patient's allergies. Naloxone Home medications Home medications were reviewed. Review of systems All relevant systems have been reviewed and are negative except as noted in HPI or below Physical examination BP (!) 169/87 Pulse 83 Temp 98 F (36.7 C) (Oral) Resp 18 SpO2 93% General appearance: alert; chronically ill appearing; in no acute distress HEENT: Head- normocephalic; Eyes- EOMI, sclera anicteric; Throat- mucous membranes moist Cardiovascular: regular rate and rhythm; normal S1, S2; peripheral edema 4+ Respiratory: lungs clear to auscultation; except for soledad expiratory wheezes; on room air Abdomen: soft, non-tender, non-distended Neurological: oriented x 3; normal speech; no focal findings or movement disorder noted Musculoskeletal: no significant deformity or tenderness to palpation Skin: normal coloration except for vascular discoloration soledad feet Psych: normal mood and affect [1] Social History Tobacco Use Smoking Status Former Current packs/day: 0.00 Average packs/day: 0.5 packs/day for 15.0 years (7.5 ttl pk-yrs) Types: Cigarettes Start date: 1984 Quit date: 2000 Years since quittin.7 Passive exposure: Current Smokeless Tobacco Current Types: Chew Cosigned by Carmen Charles MD at 05/12/2025 6:58 AM EDT Associated attestation - Carmen Charles MD - 05/12/2025 6:58 AM EDT HMS NOTE ADDENDUM I saw and examined the patient independently of the WHIT . Labs, medications, imaging and other studies were reviewed. I agree with history, physical examination findings, medical decision making and the assessment/plan with additions as noted in my documentation below. HPI Carmen Gilman is a 59 y.o. male patient of Ani Worley CNP with history of Anxiety, Arrhythmia, Arthritis, COPD, DM, HTN, Left Knee Pain, Opioid Dependance, who presented to [facility] on 05/11/2025 with complaints of Rt Knee pain, Rt knee wound (TKR). Patient presenting at the direction of his orthopedic surgeon for a chronic right knee wound which he states began a few months ago. Which he states did not resolve despite a course of antibiotics from his PCP. Patient has been seen in the office by his orthopedic surgeon on who instructed him to present to the hospital for possible surgical intervention on Tuesday. Physical Examination General Appearance: alert; acute on chronically ill appearing; in moderate acute distress HEENT: Head- normocephalic; Eyes- EOMI, sclera anicteric; Ears- hearing intact; Nose- no nasal discharge; Throat- mucous membranes moist Cardiovascular: regular rate and rhythm; normal S1, S2; no murmurs, rubs, clicks or gallops; no peripheral edema Respiratory: lungs clear to auscultation; without wheezes, rales or rhonchi; on room air Abdomen: soft, non-tender, non-distended; positive bowel sounds Neurological: oriented x 3; normal speech; no focal findings or movement disorder noted Musculoskeletal: Chronic right lateral open knee wound draining yellow serous fluid with surrounding cellulitis. Skin: normal coloration; no obvious rashes, lesions or skin breakdown Psych: normal mood and affect Assessment/Plan Rt Knee Wound w/ Drainage Acute Rt Knee Pain Rt Knee Cellulitis RLE Edema Rt Knee X-Ray: no acute findings WBC: 4.46 Lactic Acid: 1.9 BCX x2: P Wound Cx: P Abx: Vanc and Zosyn Consult Ortho: P Tentative Plan OR Mon Consult Vascular: P documented in this encounter [facility] 05-13-2025 Consult note Associated Order (s): IP CONSULT TO CARE MANAGEMENT Date: 05/13/2025 Time: 2:44 PM Patient Name: Carmen Gilman Date of : 1965 Reason for Consult: Discharge Plan Discussion: Met with patient at bedside. Introduced role. Patient was just recently discharged from [facility] on 04[facility]/25 to [facility]. Patient signed himself out AMA on 04/09/25. There were no services set up because of the AMA status. Patient reported that he lives by himself or a friend is there and his son in law-Clay helps him a lot. Patient very anxious and fidgety stating he was nervous for surgery and didn't know what he was going to need. This worker asked if he had DPOA or Living Will and he stated that he didn't and declined completion or packet. He did say that his siter Aliyah would be who he wanted to make decisions if he was not able. This worker will follow up after surgery and assist with any discharge needs/planning. Patient most likely will need IV antibiotics at discharge Discharge Plan: Plan A: Home Health Care Services Plan A : Post Acute Patient Choice 1: [facility] at Home/[facility] Plan B: [facility] Transportation Assessment and Background Information: Family aware of the patient's advance care planning wishes:: No Medication adherence problem:: No History of falls in last 6 months:: No Do you have any cultural/spiritual connections or beliefs that would impact how we deliver your care?: No Chronic pain:: (!) Yes Advance Directives: Advance Directive: Patient does not have advance directive, would not like information Who do you want to support you when making healthcare decisions?: Aliyah his sister Information Provided on Healthcare Directives: No Patient Support: Does Patient have a PCP?: Yes Living Arrangements: Family members Type of Residence: Private residence Support Systems: Family members Assistance Needed: yes Current Home Equipment: Cane Caregiver Assessment: SDOH: [facility] 05-13-2025 Progress note Formatting of t his note might be different from the original. Wiliam Carrascoon may skip 9am dose of vancomycin due to intolerance with potassium. [facility] 05-13-2025 Katie [place] 05-13-2025 Progress note Formatting of t his note might be different from the original. Patient refusing 0600 dose of IV Lasix stating "I was up all night pissing and now they want you to give me more? No, I am not taking that right now." Patient voices understanding the purpose of the Lasix when educated. T [facility] 05-13-2025 Progress note Formatting of t his note might be different from the original. Patient refusing daily weight at this time. [facility] 05-13-2025 Plan of care note Problem: Actual or potential alteration in health Goal: Absence of healthcare acquired conditions Outcome: Partially Met Goal: Knowledge of Interdisciplinary Plan of Care Outcome: Partially Met Goal: Knowledge of Enviroment Outcome: Partially Met T [facility] 05-12-2025 Plan of care note Problem: Actual or potential alteration in health Goal: Absence of healthcare acquired conditions Outcome: Partially Met Goal: Knowledge of Interdisciplinary Plan of Care Outcome: Partially Met Goal: Knowledge of Enviroment Outcome: Partially Met Problem: Pain Goal: Reduced pain sensation Outcome: Partially Met Goal: Control of acute pain to acceptable level Outcome: Partially Met Goal: Able to cope with pain Outcome: Partially Met [facility] 05-12-2025 Plan of care note Problem: Actual or potential alteration in health Goal: Absence of healthcare acquired conditions Outcome: Partially Met Goal: Knowledge of Interdisciplinary Plan of Care Outcome: Partially Met Goal: Knowledge of Enviroment Outcome: Partially Met Problem: Pain Goal: Reduced pain sensation Outcome: Partially Met Goal: Control of acute pain to acceptable level Outcome: Partially Met Goal: Able to cope with pain Outcome: Partially Met Goal: Able to achieve maximum level of physical functioning Outcome: Partially Met Goal: Able to achieve maximum level of psychosocial functioning Outcome: Partially Met Problem: Falls, Risk of Goal: Absence of falls Outcome: Partially Met Goal: Absence of physical injury Outcome: Partially Met [facility] 05-12-2025 Consult note Formatting of th is note might be different from the original. ATTENDING PHYSICIAN [facility] PRIMARY CARE PHYSICIAN ANI WORLEY CNP ADMITTING PHYSICIAN CARMEN CHARLES MD CONSULTING PHYSICIAN SOFÍA DUKES MD This is an orthopedic consultation. Carmen is a 59-year-old patient in very poor medical condition who was seen in the orthopedic office for an ulcer over his right lateral knee. He had knee replacement over five years ago. The gentleman had an aspiration from the medial aspect of his knee. Worried about potential septic knee. Cultures, so far, are negative. However, he is in just a very poor medical state with an ulcer of his right leg that needs significant wound debridement. Bilateral lower extremity cellulitis is noted, and at this time, on admission, I recommend that we proceed forward with sepsis workup as well as peripheral blood cultures and peripheral cultures for his significant lower extremity cellulitis. PAST MEDICAL HISTORY Anxiety. Heart arrhythmia. Asthma. COPD. Diabetes. Hypertension. Chronic lymphedema. Adrenal insufficiency. Chronic leg swelling. SURGERIES He has had appendectomy. He has had right knee replacement. He has apparently had wound debridement of his right leg. He has had left foot surgery. He has had thoracic back surgery. FAMILY HISTORY Heart disease and diabetes. SOCIAL HISTORY He chews. ALLERGIES Naloxone. MEDICATIONS Include: Albuterol. Aspirin. Subutex. Oral clindamycin at home. Advair. Lasix. Neurontin. Ipratropium. Meloxicam. He is currently on Zosyn and vancomycin. LABORATORY EVALUATION Knee aspiration cultures from May 09 are negative so far. Blood cultures are pending. Lactic acid 1.9. PHYSICAL EXAMINATION General: He is awake. He is in the emergency room. Skin: He has a large ulcer on the lateral aspect of his right knee. He has a mild knee effusion. He has, at this point in time, significant swelling in both legs with the difficulty on attempting to palpate any pulses. A 3 x 3 cm ulcer over the lateral aspect of his right knee. IMAGING DATA X-rays of the right knee show a normal-appearing knee replacement. IMPRESSION 1. Right knee chronic ulcer. 2. Possible culture-negative septic right knee. 3. Chronic lymphedema of the bilateral lower extremities with chronic cellulitis. 4. Arterial and venous insufficiency. PLAN We need to proceed forward with an irrigation, debridement, wound vacuum-assisted closure application to this right knee. We also need intravenous antibiotics to clear up the cellulitis. At this time, I am planning on at operating room debridement on 05/13/2025. D 05/12/2025 09:47 [id number] 05/12/2025 10:17 MCB/MODL [facility] 05-12-2025 Emergency department Note Into patient room to speak about double occupancy room upstairs. Pt refusing double occupancy room. Pt became upset with this RN and Rashaad MENDOZA bedside. Stating give me the papers, I am leaving. I will come back when you have space for people. Patient very angry and despite this RN and Rashaad RN asking clarifying questions to fix patients complaints. Patient states he does not want a double occupancy room, he does not want a diabetic diet and only wants a regular diet. Patient also states he wants more pain medication. This RN informed Dee Carnes of patient's request for a diet change, patient also educated on recent pain medication administration. [facility] 05-12-2025 Emergency department Note Into patient room to speak about double occupancy room upstairs. Pt refusing double occupancy room. Pt became upset with this RN and Rashaad MENDOZA bedside. Stating give me the papers, I am leaving. I will come back when you have space for people. Patient very angry and despite this RN and Rashaad RN asking clarifying questions to fix patients complaints. Patient states he does not want a double occupancy room, he does not want a diabetic diet and only wants a regular diet. Patient also states he wants more pain medication. This RN informed Dee Carnes of patient's request for a diet change, patient also educated on recent pain medication administration. Rounded on pt, pt laying on ED cart, call light within reach. Pt updated on plan of care pt verbalized understanding. Pt offered comfort measures including blankets, adjustment, and pillows. Pt denies further needs at this times. Pt resting comfortably, resps even and unlabored with no signs of distress. Educated pt on nursing will continue to hourly round but if pt needs anything in the mean time to use call light. Pt verbalized understanding. Removed trash from room, provided fresh blanket and new pillow linen, emptied urinal and straightened up pt room. Snack provided at this time. Report received from Nathaniel MENDOZA at bedside. Pt requesting a snack at this time. Hourly rounding assessment completed on the patient. [x] Patient updated on plan of care [x] All comfort needs addressed [x] Patient updated on duration of visit All questions answered, patient denies further needs. Call light within reach. [facility] EMERGENCY DEPARTMENT WHIT NOTE: NAME: Carmen Gilman CSN: [id number] 59 y.o. PCP: Ani Worley CNP History: Chief Complaint: Knee Pain HPI: The history was obtained from the patient. Carmen is a 59 y.o. male who presents with a chief complaint of Knee Pain. Patient comes emergency room with chief complaint of right knee pain. He was told that he was come to emergency room to be admitted today with orthopedics for further evaluation and management for wound to right knee with total knee replacement beneath. No fevers. No nausea or vomiting. PMHx: Past Medical History: Diagnosis Date Anxiety Arrhythmia Arthritis Asthma COPD (chronic obstructive pulmonary disease) (HCC) Diabetes (HCC) Hypertension Knee pain, left Leg swelling Opioid dependence (HCC) Secondary adrenal insufficiency 04/30/2022 left AMA 04/30/22 without treatment PMSx: Past Surgical History: Procedure Laterality Date APPENDECTOMY ARTHROPLASTY KNEE TOTAL ROBOTIC ASSISTED Right 01/08/2020 Procedure: Right Total Knee Replacement Robotic; Surgeon: Sofía Dukes MD; Location: Main OR; Service: Ortho-Robotics DEBRIDEMENT WITH WOUND CLOSURE POSS SKIN GRAFT LOWER EXTR Right 06/03/2023 Procedure: RIGHT LATERAL LEG Debridement with VERSAJET; Surgeon: ALEXEY Radford DPM; Location: Main OR; Service: Podiatry FOOT SURGERY Left MANDIBLE FRACTURE SURGERY ORTHOPEDIC SURGERY Right knee SKIN GRAFT SPLIT THICKNESS LOWER EXTREMITY Right 08/05/2023 Procedure: RIGHT LOWER LEG SPLIT THICKNESS SKIN GRAFT; Surgeon: Cecilia Gonzales DPM; Location: Main OR; Service: Podiatry THORACIC DUCT LIGATION 01/15/2017 THORACIC DUCT LIGATION WOUND VAC Right 06/03/2023 Procedure: APPLICATION WOUND VAC; Surgeon: ALEXEY Radford DPM; Location: Main OR; Service: Podiatry FAM. Hx: Family History Problem Relation Age of Onset Heart disease Mother Diabetes Mother SOC. Hx: Social History [1] MEDs: Previous Medications Medication Sig albuterol 90 mcg/actuation inhaler Inhale 2 (two) puffs every 6 (six) hours as needed for wheezing . aspirin 81 MG EC tablet Take 1 (one) tablet (81 mg total) by mouth every morning . buprenorphine HCL (SUBUTEX) [address] 2 (two) tablets (4 mg total) under the tongue every 8 (eight) hours as needed . clindamycin (CLEOCIN) 300 MG capsule Take 1 (one) capsule (300 mg total) by mouth 4 (four) times a day . fluticasone propion-salmeteroL (ADVAIR DISKUS) 250-50 mcg/dose diskus inhaler Inhale 1 (one) puff 2 (two) times a day . furosemide (LASIX) 40 MG tablet Take 1 (one) tablet (40 mg total) by mouth daily . gabapentin (NEURONTIN) 800 MG tablet Take 1 (one) tablet (800 mg total) by mouth 4 (four) times a day . ipratropium-albuteroL (DUO-NEB) 0.5-2.5 mg/3 ml nebulizer Take 3 mL by nebulization 4 (four) times a day as needed for wheezing or shortness of breath . meloxicam (MOBIC) 7.5 MG tablet Take 1 (one) tablet (7.5 mg total) by mouth daily . ALL: Allergies[2] ROS: Review of Systems Constitutional: Negative. HENT: Negative. Respiratory: Negative. Cardiovascular: Negative. Gastrointestinal: Negative. Musculoskeletal: Positive for arthralgias. Skin: Positive for rash. All other systems reviewed and are negative. Positives and pertinent negatives as per HPI. All other systems were reviewed and are negative. Physical Exam: Patient Vitals for the past 24 hrs: BP Temp Temp src Pulse Resp SpO2 05/12/25 0256 -- -- -- -- 18 -- 05/11/25 2307 (!) 169/87 -- -- 83 (!) 19 93 % 05/11/25 2222 -- -- -- -- (!) 21 -- 05/11/25 1930 (!) 146/87 98 F (36.7 C) Oral 92 (!) 20 92 % Physical Exam Vitals and nursing note reviewed. Constitutional: General: He is not in acute distress. Appearance: Normal appearance. He is ill-appearing. He is not toxic-appearing or diaphoretic. HENT: Head: Normocephalic and atraumatic. Mouth/Throat: Mouth: Mucous membranes are moist. Pharynx: No oropharyngeal exudate. Cardiovascular: Rate and Rhythm: Normal rate and regular rhythm. Pulses: Normal pulses. Heart sounds: Normal heart sounds. Musculoskeletal: Right lower leg: Edema present. Left lower leg: Edema present. Comments: Bilateral lower extremity edema with erythema. There is a small hole that is draining at the lateral aspect of the right knee. No obvious effusions at this time. Pulmonary: Effort: Pulmonary effort is normal. No respiratory distress. Breath sounds: Normal breath sounds. No wheezing. Abdominal: General: Bowel sounds are normal. Palpations: Abdomen is soft. Skin: General: Skin is warm. Capillary Refill: Capillary refill takes less than 2 seconds. Findings: Rash present. Neurological: General: No focal deficit present. Mental Status: He is alert and oriented to person, place, and time. Laboratory & Radiological Imaging (if done): Labs Reviewed COMPREHENSIVE METABOLIC PANEL - Abnormal; Notable for the following components: Result Value Sodium 134 (*) BUN/Creatinine Ratio 24.2 (*) All other components within normal limits Narrative: [facility] has implemented the eGFR calculation approach that does not have a coefficient for race that conforms to the NKF-ASN Task Force Recommendations. CBC WITH AUTO DIFFERENTIAL - Abnormal; Notable for the following components: WBC 4.46 (*) Hemoglobin 11.5 (*) Hematocrit 38.9 (*) MCV 71.2 (*) MCH 21.1 (*) MCHC 29.6 (*) Platelets 124 (*) RDW - CV 17.2 (*) All other components within normal limits MORPHOLOGY - Abnormal; Notable for the following components: Platelet Estimate Decreased (*) All other components within normal limits MANUAL DIFFERENTIAL - Abnormal; Notable for the following components: Lymphocytes Abs 0.49 (*) Monocytes Abs 0.13 (*) All other components within normal limits LACTIC ACID, PLASMA - Normal BLOOD CULTURE AEROBIC/ANAEROBIC BLOOD CULTURE AEROBIC/ANAEROBIC WOUND AEROBIC AND ANAEROBIC CULTURE CBC AND DIFFERENTIAL Narrative: The following orders were created for panel order CBC w/ Diff. Procedure Abnormality Status --------- ------ CBC Auto Differential[[id number]] Abnormal Final result Manual Differential[[id number]] Abnormal Final result CBC and Diff Morphology[[id number]] Abnormal Final result Please view results for these tests on the individual orders. XR Knee Right 2 Views (Standard) Final Result No acute osseous abnormality. Workstation ID: [id number] ED Course / Medical Decision Making: I did personally review Carmen's past medical history, surgical history, social history, as well as family history (when relevant). In this case, I also oversaw the his drug management by reviewing his medication list, allergy list, as well as the medications that I prescribed during the ED course and/or recommended as an out-patient (including possible OTC medications such as acetaminophen, NSAIDs , etc). His past medical problem list included: Active Ambulatory Problems Diagnosis Date Noted Osteoarthritis of right knee 07/31/2018 Acquired pes planovalgus of right foot 07/31/2018 Primary osteoarthritis of right knee 10/02/2019 Essential hypertension 01/04/2020 Chronic respiratory failure with hypoxia and hypercapnia ([facility]) 07/08/2020 Uncomplicated opioid dependence ([facility]) 07/08/2020 Atrial fibrillation with rapid ventricular response ([facility]) 07/08/2020 Obesity (BMI 30-39.9) 07/08/2020 Type 2 diabetes mellitus without complication, without long-term current use of insulin ([facility]) 07/08/2020 Mucopurulent chronic bronchitis ([facility]) 12/03/2020 Polysubstance abuse ([facility]) 06/03/2021 Leukocytosis 06/03/2021 Nondependent cocaine abuse ([facility]) 06/03/2021 Hypotension 04/20/2022 Acute pain of left hip 04/24/2022 Pain of left femur 04/24/[address] 04/25/2022 Alcoholic cirrhosis of liver with ascites ([facility]) 04/28/2022 Hematoma 05/17/2023 Thrombocytopenia 05/25/2023 Venous stasis dermatitis of both lower extremities 05/25/2023 Chronic pain 05/25/2023 Plantar ulcer of right foot ([facility]) 05/25/2023 Ulcer of left lower leg ([facility]) 05/25/2023 Infection of prosthetic right knee joint ([facility]) 06/09/2023 Adrenal insufficiency 06/12/2023 Foot infection 07/29/2023 Cellulitis 10/01/2023 Pancytopenia ([facility]) 10/12/2023 Chronic diastolic congestive heart failure (HCC) 10/12/2023 Acute heart failure with preserved ejection fraction (HFpEF) ([facility]) 07/02/2024 Acute exacerbation of chronic obstructive pulmonary disease (COPD) ([facility]) 10/16/2024 Pulmonary hypertension (HCC) 01/02/2025 Edema of both lower extremities 01/02/2025 Venous congestion 01/02/2025 MARLENE (acute kidney injury) 02/11/2025 Generalized weakness 04/02/2025 Resolved Ambulatory Problems Diagnosis Date Noted Open neck wound 01/26/2017 Toe dislocation, left, subsequent encounter 07/31/2018 Acute exacerbation of chronic obstructive pulmonary disease (COPD) (HCC) 07/08/2020 Essential hypertension 07/08/2020 (HFpEF) heart failure with preserved ejection fraction (HCC) 07/08/2020 COPD with acute exacerbation 06/03/2021 Acute hypoxemic respiratory failure (HCC) 06/03/2021 Respiratory arrest (HCC) 06/03/2021 Hypertension 06/03/2021 Acute hypercapnic respiratory failure (HCC) 06/03/2021 Respiratory acidosis 06/03/2021 Hyperglycemia 06/03/2021 Marijuana abuse 06/03/2021 Unresponsiveness 09/30/2021 Fall 04/24/2022 Sepsis (HCC) 04/24/2022 Bradycardia 04/27/2022 Cellulitis 03/24/2023 Traumatic hematoma 05/17/2023 Leg hematoma, right, initial encounter 05/20/2023 Venous ulcer (HCC) 05/31/2023 Past Medical History: Diagnosis Date Anxiety Arrhythmia Arthritis Asthma COPD (chronic obstructive pulmonary disease) (HCC) Diabetes (HCC) Knee pain, left Leg swelling Opioid dependence ([facility]) Secondary adrenal insufficiency 04/30/2022 ED MEDICATIONS GIVEN: Medications piperacillin-tazobactam (ZOSYN) IVPB 4.5 g (premix) (0 g Intravenous Stopped 05/11/250) Followed by piperacillin-tazobactam (ZOSYN) IVPB 3.375 g (premix) (3.375 g Intravenous New Bag 05/12/25 0257) vancomycin (VANCOCIN) 2000 mg in sodium chloride 0.9% 500 mL IVPB (0 mg Intravenous Stopped 05/12/25 0100) HYDROmorphone (DILAUDID) injection 0.5 mg (0.5 mg Intravenous Given 05/11/25 2222) HYDROmorphone (DILAUDID) injection 0.5 mg (0.5 mg Intravenous Given 05/12/25 0256) After reviewing the items above, I did look at previous medical documentation, such as recent hospitalizations, office visits, and/or recent consultations with PCP/specialist. SDOH: Another factor that I considered in Carmen's care was his Social Determinants of Health (SDOH). During this ED encounter, he did NOT appear to have any significant issues identified. LAB TESTING: Ancillary lab testing: Chemistry profile unremarkable and white count of 4.46, lactic acid 1.9, hemoglobin 11.5 RADIOLOGY: I did consider radiological studies for Carmen's care today: Nonacute image of the right knee. ED COURSE: Patient comes emergency room with a chief complaint of wounds to the right knee with swelling. No fevers noted. I did speak to Dr. Amin about this patient. He is advised that the patient will need significant workup and possibly even vascular consult for being noncompliant with medications and overall significant poor health. Wound culture was taken of the right knee. Orthopedics consult has been initiated. X-ray demonstrates no acute changes at this time. Patient denies any numbness or tingling to the feet. [place] [facility] [place] for further management . Clinical Impression: 1. Leg pain 2. Open wound of right knee, leg, and ankle, initial encounter 3. Cellulitis, unspecified cellulitis site Disposition: ED Disposition ED Disposition Hospitalize Condition -- Comment Recommended Level of Care: Med Surg Phone call required?: Yes Camron Goyal Jr., PA-C, [facility] ED Advanced Practice Provider [facility] [1] Social History Socioeconomic History Marital status: Single Tobacco Use Smoking status: Former Current packs/day: 0.00 Average packs/day: 0.5 packs/day for 15.0 years (7.5 ttl pk-yrs) Types: Cigarettes Start date: 1984 Quit date: 2000 Years since quittin.7 Passive exposure: Current Smokeless tobacco: Current Types: Chew Vaping Use Vaping status: Never Used Substance and Sexual Activity Alcohol use: Not Currently Drug use: Not Currently Types: Marijuana Sexual activity: Not Currently Social History Narrative Merged History Encounter Merged History Encounter Social Drivers of Health Financial Resource Strain: Low Risk (04/03/2025) Overall Financial Resource Strain (CARDIA) Difficulty of Paying Living Expenses: Not very hard Food Insecurity: No Food Insecurity (04/02/2025) Hunger Vital Sign Worried About Running Out of Food in the Last Year: Never true Ran Out of Food in the Last Year: Never true Transportation Needs: No Transportation Needs (04/02/2025) PRAPARE - Transportation Lack of Transportation (Medical): No Lack of Transportation (Non-Medical): No Housing Stability: Low Risk (04/02/2025) Housing Stability Vital Sign Unable to Pay for Housing in the Last Year: No Number of Times Moved in the Last Year: 0 Homeless in the Last Year: No [2] Allergies Allergen Reactions Naloxone Unknown Camron Goyal Jr., PA-C 05/12/25 0402 Hourly rounding assessment completed on the patient. [x] Patient updated on plan of care [x] All comfort needs addressed [x] Patient updated on duration of visit All questions answered, patient denies further needs. Call light within reach. Pt is requesting pain meds Bed: 19 Expected date: Expected time: Means of arrival: Comments: TR4 Patient arrives via private car. Patient states he saw Dr Dukes on for right knee pain and that Dr told him to come to ED on Tuesday to be admitted for a procedure with Dr Dukes documented in this encounter [facility] 05-12-2025 Emergency department Note Rounded on pt, pt laying on ED cart, call light within reach. Pt updated on plan of care pt verbalized understanding. Pt offered comfort measures including blankets, adjustment, and pillows. Pt denies further needs at this times. Pt resting comfortably, resps even and unlabored with no signs of distress. Educated pt on nursing will continue to hourly round but if pt needs anything in the mean time to use call light. Pt verbalized understanding. Removed trash from room, provided fresh blanket and new pillow linen, emptied urinal and straightened up pt room. [facility] 05-12-2025 Physician Emergency department Note [facility] ATTENDING NOTE: NAME: Carmen Gilman CSN: [id number] 59 y.o. ED Attestation: I have reviewed the Advanced Practice Provider's (WHIT's) documentation. In addition, I have personally introduced myself to the patient (face to face), and have taken his history and performed an examination. I agree with the physical findings, management, clinical impression and disposition. I did perform the substantive portion of this patient's encounter, including all aspects of the MDM. In brief, Carmen is a 59 y.o. male who presents with a chief complaint of Knee Pain. 59-year-old male presenting to the emergency department for evaluation of infected lower extremity wounds, concern for joint infection, this was sent for wound culture, the patient was admitted for further evaluation and management 1. Leg pain 2. Open wound of right knee, leg, and ankle, initial encounter 3. Cellulitis, unspecified cellulitis site [facility] Work Phone: 05-12-2025 Emergency department Note Snack provided at this time. [facility] 05-12-2025 [facility] 05-12-2025 Emergency department Note Report received from Nathaniel MENDOZA at bedside. Pt requesting a snack at this time. [facility] 05-12-2025 Emergency department Note Hourly rounding assessment completed on the patient. [x] Patient updated on plan of care [x] All comfort needs addressed [x] Patient updated on duration of visit All questions answered, patient denies further needs. Call light within reach. [facility] 05-12-2025 History and physical note [facility] [place] [facility] Patient name: Carmen Gilman Date of : 1965 Admission date: 05/11/2025 Physicians: Ani Worley CNP (Family); No ref. provider found (Referring) Carmen Gilman is a 59 y.o. male patient of Ani Worley CNP with history of Anxiety, Arrhythmia, Arthritis, COPD, DM, HTN, Left Knee Pain, Opioid Dependance, who presented to [facility] on 05/11/2025 with complaints of Rt Knee pain, Rt knee wound (TKR). Mr. Gilman is alone at the time of exam and is a fair historian Rt Knee Wound w/ Drainage Acute Rt Knee Pain Rt Knee Cellulitis RLE Edema Rt Knee X-Ray: no acute findings WBC: 4.46 Lactic Acid: 1.9 BCX x2: P Wound Cx: P Abx: Vanc and Zosyn Consult Ortho: P Tentative Plan OR Mon Consult Vascular: P COPD not in exacerbation Intermittent Home O2 use Cont home Inhaler O2 prn HTN Hx HFpEF 05/2023 Echo: EF 65-70%. Pulm HTN Cont home Lasix every day- pt has not been taking every day as it is difficult to ambulate to the bathroom. DM Neuropathy Obesity 01/2025 HGA1C: 6.2 Pt denies being dm, does not check BS BS AC & HS w SSI DM Diet Cont home Gabapentin Anemia HH: 11.5/38.9 (9.8/32.7) Goal Hgb >7.0 Chronic Fatigue Reduced Mobility Medication Non-compliance PTOT Case Management for Dc need Encouraged and discussed importance of compliance Admitted with the following risk variables: Electrolyte Disturbance: Hyponatremia and Chronic Fatigue/Reduced Mobility . Residence prior to admission: house or apartment Quality measures DVT prophylaxis: lovenox and foot pumps Tavera catheter: absent Medication reconciliation: verified Patient and/or family has been told expected day of discharge is: 1-2 days Potential social barriers to discharge include: none Code status Full Code; code status verified on 05/12/2025 with patient (capacity intact) Chief complaint Rt Knee Pain and Rt knee wound History of present illness Mr. Gilman presented to the ED with complaints of Rt knee pain and Rt knee wound with significant drainage that began a few months ago. Mr. Gilman states that he originally had knee surgery [place] [address] Dukes and he noticed an open wound a couple of mths ago. He followed up with PCP who prescribed abx, but it didn't fix the drainage. Mr. Gilmna was then evaluated by Dr. Dukes in the office on 05/09. He was told that he needed to go to the hospital and that he would need abx and surgery most likely on Tuesday. Mr. Gilman states that the pain is constant, aching, sharp. Activity makes the pain worse, rest helps a little, medication helps the most. He denies nausea, fever, chills, chest pain, cough, diarrhea. He also states that the drainage changes in color, sometimes it is yellow, bloody, more clear. While in the ED, imaging was negative or acute process. WBC 4.4. LA wnl. Blood and wound cx were obtained. Mr. Gilman is being admitted for abx and likely surgery on Tuesday with Dr. Dukes. Past medical history Past Medical History: Diagnosis Date Anxiety Arrhythmia Arthritis Asthma COPD (chronic obstructive pulmonary disease) (HCC) Sometimes uses home O2 Diabetes (HCC) Hypertension Knee pain, left Leg swelling Opioid dependence (HCC) Secondary adrenal insufficiency 04/30/2022 left AMA 04/30/22 without treatment Past surgical history Past Surgical History: Procedure Laterality Date APPENDECTOMY ARTHROPLASTY KNEE TOTAL ROBOTIC ASSISTED Right 01/08/2020 Procedure: Right Total Knee Replacement Robotic; Surgeon: Sofía Dukes MD; Location: Main OR; Service: Ortho-Robotics DEBRIDEMENT WITH WOUND CLOSURE POSS SKIN GRAFT LOWER EXTR Right 06/03/2023 Procedure: RIGHT LATERAL LEG Debridement with VERSAJET; Surgeon: ALEXEY Radford DPM; Location: Main OR; Service: Podiatry FOOT SURGERY Left MANDIBLE FRACTURE SURGERY ORTHOPEDIC SURGERY Right knee SKIN GRAFT SPLIT THICKNESS LOWER EXTREMITY Right 08/05/2023 Procedure: RIGHT LOWER LEG SPLIT THICKNESS SKIN GRAFT; Surgeon: Cecilia Gonzales DPM; Location: Main OR; Service: Podiatry THORACIC DUCT LIGATION 01/15/2017 THORACIC DUCT LIGATION US ECHO COMP 05/2023 EF- 65-70%, pulm htn WOUND VAC Right 06/03/2023 Procedure: APPLICATION WOUND VAC; Surgeon: ALEXEY Radford DPM; Location: Main OR; Service: Podiatry Family history Family History Problem Relation Age of Onset Heart disease Mother Diabetes Mother Social history Tobacco Use History[1] Social History Substance and Sexual Activity Alcohol Use Not Currently Social History Substance and Sexual Activity Drug Use Not Currently Types: Marijuana Allergy information I have reviewed the patient's allergies. Naloxone Home medications Home medications were reviewed. Review of systems All relevant systems have been reviewed and are negative except as noted in HPI or below Physical examination BP (!) 169/87 Pulse 83 Temp 98 F (36.7 C) (Oral) Resp 18 SpO2 93% General appearance: alert; chronically ill appearing; in no acute distress HEENT: Head- normocephalic; Eyes- EOMI, sclera anicteric; Throat- mucous membranes moist Cardiovascular: regular rate and rhythm; normal S1, S2; peripheral edema 4+ Respiratory: lungs clear to auscultation; except for soledad expiratory wheezes; on room air Abdomen: soft, non-tender, non-distended Neurological: oriented x 3; normal speech; no focal findings or movement disorder noted Musculoskeletal: no significant deformity or tenderness to palpation Skin: normal coloration except for vascular discoloration soledad feet Psych: normal mood and affect [1] Social History Tobacco Use Smoking Status Former Current packs/day: 0.00 Average packs/day: 0.5 packs/day for 15.0 years (7.5 ttl pk-yrs) Types: Cigarettes Start date: 1984 Quit date: 2000 Years since quittin.7 Passive exposure: Current Smokeless Tobacco Current Types: Chew Cosigned by Carmen Charles MD at 05/12/2025 6:58 AM EDT Associated attestation - Carmen Charles MD - 05/12/2025 6:58 AM EDT HMS NOTE ADDENDUM I saw and examined the patient independently of the WHIT . Labs, medications, imaging and other studies were reviewed. I agree with history, physical examination findings, medical decision making and the assessment/plan with additions as noted in my documentation below. LUKASZ Gilman is a 59 y.o. male patient of Ani Worley CNP with history of Anxiety, Arrhythmia, Arthritis, COPD, DM, HTN, Left Knee Pain, Opioid Dependance, who presented to [facility] on 05/11/2025 with complaints of Rt Knee pain, Rt knee wound (TKR). Patient presenting at the direction of his orthopedic surgeon for a chronic right knee wound which he states began a few months ago. Which he states did not resolve despite a course of antibiotics from his PCP. Patient has been seen in the office by his orthopedic surgeon on who instructed him to present to the hospital for possible surgical intervention on Tuesday. Physical Examination General Appearance: alert; acute on chronically ill appearing; in moderate acute distress HEENT: Head- normocephalic; Eyes- EOMI, sclera anicteric; Ears- hearing intact; Nose- no nasal discharge; Throat- mucous membranes moist Cardiovascular: regular rate and rhythm; normal S1, S2; no murmurs, rubs, clicks or gallops; no peripheral edema Respiratory: lungs clear to auscultation; without wheezes, rales or rhonchi; on room air Abdomen: soft, non-tender, non-distended; positive bowel sounds Neurological: oriented x 3; normal speech; no focal findings or movement disorder noted Musculoskeletal: Chronic right lateral open knee wound draining yellow serous fluid with surrounding cellulitis. Skin: normal coloration; no obvious rashes, lesions or skin breakdown Psych: normal mood and affect Assessment/Plan Rt Knee Wound w/ Drainage Acute Rt Knee Pain Rt Knee Cellulitis RLE Edema Rt Knee X-Ray: no acute findings WBC: 4.46 Lactic Acid: 1.9 BCX x2: P Wound Cx: P Abx: Vanc and Zosyn Consult Ortho: P Tentative Plan OR Mon Consult Vascular: P [facility] 05-12-2025 Physician Emergency department Note [facility] WHIT NOTE: NAME: Carmen Gilman CSN: [id number] 59 y.o. PCP: Ani Worley CNP History: Chief Complaint: Knee Pain HPI: The history was obtained from the patient. Carmen is a 59 y.o. male who presents with a chief complaint of Knee Pain. Patient comes emergency room with chief complaint of right knee pain. He was told that he was come to emergency room to be admitted today with orthopedics for further evaluation and management for wound to right knee with total knee replacement beneath. No fevers. No nausea or vomiting. PMHx: Past Medical History: Diagnosis Date Anxiety Arrhythmia Arthritis Asthma COPD (chronic obstructive pulmonary disease) (HCC) Diabetes (HCC) Hypertension Knee pain, left Leg swelling Opioid dependence (HCC) Secondary adrenal insufficiency 04/30/2022 left AMA 04/30/22 without treatment PMSx: Past Surgical History: Procedure Laterality Date APPENDECTOMY ARTHROPLASTY KNEE TOTAL ROBOTIC ASSISTED Right 01/08/2020 Procedure: Right Total Knee Replacement Robotic; Surgeon: Sofía Dukes MD; Location: Main OR; Service: Ortho-Robotics DEBRIDEMENT WITH WOUND CLOSURE POSS SKIN GRAFT LOWER EXTR Right 06/03/2023 Procedure: RIGHT LATERAL LEG Debridement with VERSAJET; Surgeon: ALEXEY Radford DPM; Location: Main OR; Service: Podiatry FOOT SURGERY Left MANDIBLE FRACTURE SURGERY ORTHOPEDIC SURGERY Right knee SKIN GRAFT SPLIT THICKNESS LOWER EXTREMITY Right 08/05/2023 Procedure: RIGHT LOWER LEG SPLIT THICKNESS SKIN GRAFT; Surgeon: Cecilia Gonzales DPM; Location: Main OR; Service: Podiatry THORACIC DUCT LIGATION 01/15/2017 THORACIC DUCT LIGATION WOUND VAC Right 06/03/2023 Procedure: APPLICATION WOUND VAC; Surgeon: ALEXEY Radford DPM; Location: Main OR; Service: Podiatry FAM. Hx: Family History Problem Relation Age of Onset Heart disease Mother Diabetes Mother SOC. Hx: Social History [1] MEDs: Previous Medications Medication Sig albuterol 90 mcg/actuation inhaler Inhale 2 (two) puffs every 6 (six) hours as needed for wheezing . aspirin 81 MG EC tablet Take 1 (one) tablet (81 mg total) by mouth every morning . buprenorphine HCL (SUBUTEX) [address] 2 (two) tablets (4 mg total) under the tongue every 8 (eight) hours as needed . clindamycin (CLEOCIN) 300 MG capsule Take 1 (one) capsule (300 mg total) by mouth 4 (four) times a day . fluticasone propion-salmeteroL (ADVAIR DISKUS) 250-50 mcg/dose diskus inhaler Inhale 1 (one) puff 2 (two) times a day . furosemide (LASIX) 40 MG tablet Take 1 (one) tablet (40 mg total) by mouth daily . gabapentin (NEURONTIN) 800 MG tablet Take 1 (one) tablet (800 mg total) by mouth 4 (four) times a day . ipratropium-albuteroL (DUO-NEB) 0.5-2.5 mg/3 ml nebulizer Take 3 mL by nebulization 4 (four) times a day as needed for wheezing or shortness of breath . meloxicam (MOBIC) 7.5 MG tablet Take 1 (one) tablet (7.5 mg total) by mouth daily . ALL: Allergies[2] ROS: Review of Systems Constitutional: Negative. HENT: Negative. Respiratory: Negative. Cardiovascular: Negative. Gastrointestinal: Negative. Musculoskeletal: Positive for arthralgias. Skin: Positive for rash. All other systems reviewed and are negative. Positives and pertinent negatives as per HPI. All other systems were reviewed and are negative. Physical Exam: Patient Vitals for the past 24 hrs: BP Temp Temp src Pulse Resp SpO2 05/12/25 0256 -- -- -- -- 18 -- 05/11/25 2307 (!) 169/87 -- -- 83 (!) 19 93 % 05/11/25 2222 -- -- -- -- (!) 21 -- 05/11/25 1930 (!) 146/87 98 F (36.7 C) Oral 92 (!) 20 92 % Physical Exam Vitals and nursing note reviewed. Constitutional: General: He is not in acute distress. Appearance: Normal appearance. He is ill-appearing. He is not toxic-appearing or diaphoretic. HENT: Head: Normocephalic and atraumatic. Mouth/Throat: Mouth: Mucous membranes are moist. Pharynx: No oropharyngeal exudate. Cardiovascular: Rate and Rhythm: Normal rate and regular rhythm. Pulses: Normal pulses. Heart sounds: Normal heart sounds. Musculoskeletal: Right lower leg: Edema present. Left lower leg: Edema present. Comments: Bilateral lower extremity edema with erythema. There is a small hole that is draining at the lateral aspect of the right knee. No obvious effusions at this time. Pulmonary: Effort: Pulmonary effort is normal. No respiratory distress. Breath sounds: Normal breath sounds. No wheezing. Abdominal: General: Bowel sounds are normal. Palpations: Abdomen is soft. Skin: General: Skin is warm. Capillary Refill: Capillary refill takes less than 2 seconds. Findings: Rash present. Neurological: General: No focal deficit present. Mental Status: He is alert and oriented to person, place, and time. Laboratory & Radiological Imaging (if done): Labs Reviewed COMPREHENSIVE METABOLIC PANEL - Abnormal; Notable for the following components: Result Value Sodium 134 (*) BUN/Creatinine Ratio 24.2 (*) All other components within normal limits Narrative: [facility] has implemented the eGFR calculation approach that does not have a coefficient for race that conforms to the NKF-ASN Task Force Recommendations. CBC WITH AUTO DIFFERENTIAL - Abnormal; Notable for the following components: WBC 4.46 (*) Hemoglobin 11.5 (*) Hematocrit 38.9 (*) MCV 71.2 (*) MCH 21.1 (*) MCHC 29.6 (*) Platelets 124 (*) RDW - CV 17.2 (*) All other components within normal limits MORPHOLOGY - Abnormal; Notable for the following components: Platelet Estimate Decreased (*) All other components within normal limits MANUAL DIFFERENTIAL - Abnormal; Notable for the following components: Lymphocytes Abs 0.49 (*) Monocytes Abs 0.13 (*) All other components within normal limits LACTIC ACID, PLASMA - Normal BLOOD CULTURE AEROBIC/ANAEROBIC BLOOD CULTURE AEROBIC/ANAEROBIC WOUND AEROBIC AND ANAEROBIC CULTURE CBC AND DIFFERENTIAL Narrative: The following orders were created for panel order CBC w/ Diff. Procedure Abnormality Status --------- ------ CBC Auto Differential[[id number]] Abnormal Final result Manual Differential[[id number]] Abnormal Final result CBC and Diff Morphology[[id number]] Abnormal Final result Please view results for these tests on the individual orders. XR Knee Right 2 Views (Standard) Final Result No acute osseous abnormality. Workstation ID: [id number] ED Course / Medical Decision Making: I did personally review Camren's past medical history, surgical history, social history, as well as family history (when relevant). In this case, I also oversaw the his drug management by reviewing his medication list, allergy list, as well as the medications that I prescribed during the ED course and/or recommended as an out-patient (including possible OTC medications such as acetaminophen, NSAIDs , etc). His past medical problem list included: Active Ambulatory Problems Diagnosis Date Noted Osteoarthritis of right knee 07/31/2018 Acquired pes planovalgus of right foot 07/31/2018 Primary osteoarthritis of right knee 10/02/2019 Essential hypertension 01/04/2020 Chronic respiratory failure with hypoxia and hypercapnia ([facility]) 07/08/2020 Uncomplicated opioid dependence ([facility]) 07/08/2020 Atrial fibrillation with rapid ventricular response ([facility]) 07/08/2020 Obesity (BMI 30-39.9) 07/08/2020 Type 2 diabetes mellitus without complication, without long-term current use of insulin ([facility]) 07/08/2020 Mucopurulent chronic bronchitis ([facility]) 12/03/2020 Polysubstance abuse ([facility]) 06/03/2021 Leukocytosis 06/03/2021 Nondependent cocaine abuse ([facility]) 06/03/2021 Hypotension 04/20/2022 Acute pain of left hip 04/24/2022 Pain of left femur 04/24/[address] 04/25/2022 Alcoholic cirrhosis of liver with ascites ([facility]) 04/28/2022 Hematoma 05/17/2023 Thrombocytopenia 05/25/2023 Venous stasis dermatitis of both lower extremities 05/25/2023 Chronic pain 05/25/2023 Plantar ulcer of right foot ([facility]) 05/25/2023 Ulcer of left lower leg (HCC) 05/25/2023 Infection of prosthetic right knee joint ([facility]) 06/09/2023 Adrenal insufficiency 06/12/2023 Foot infection 07/29/2023 Cellulitis 10/01/2023 Pancytopenia ([facility]) 10/12/2023 Chronic diastolic congestive heart failure ([facility]) 10/12/2023 Acute heart failure with preserved ejection fraction (HFpEF) ([facility]) 07/02/2024 Acute exacerbation of chronic obstructive pulmonary disease (COPD) ([facility]) 10/16/2024 Pulmonary hypertension ([facility]) 01/02/2025 Edema of both lower extremities 01/02/2025 Venous congestion 01/02/2025 MARLENE (acute kidney injury) 02/11/2025 Generalized weakness 04/02/2025 Resolved Ambulatory Problems Diagnosis Date Noted Open neck wound 01/26/2017 Toe dislocation, left, subsequent encounter 07/31/2018 Acute exacerbation of chronic obstructive pulmonary disease (COPD) ([facility]) 07/08/2020 Essential hypertension 07/08/2020 (HFpEF) heart failure with preserved ejection fraction ([facility]) 07/08/2020 COPD with acute exacerbation 06/03/2021 Acute hypoxemic respiratory failure ([facility]) 06/03/2021 Respiratory arrest ([facility]) 06/03/2021 Hypertension 06/03/2021 Acute hypercapnic respiratory failure ([facility]) 06/03/2021 Respiratory acidosis 06/03/2021 Hyperglycemia 06/03/2021 Marijuana abuse 06/03/2021 Unresponsiveness 09/30/2021 Fall 04/24/2022 Sepsis ([facility]) 04/24/2022 Bradycardia 04/27/2022 Cellulitis 03/24/2023 Traumatic hematoma 05/17/2023 Leg hematoma, right, initial encounter 05/20/2023 Venous ulcer ([facility]) 05/31/2023 Past Medical History: Diagnosis Date Anxiety Arrhythmia Arthritis Asthma COPD (chronic obstructive pulmonary disease) ([facility]) Diabetes ([facility]) Knee pain, left Leg swelling Opioid dependence ([facility]) Secondary adrenal insufficiency 04/30/2022 ED MEDICATIONS GIVEN: Medications piperacillin-tazobactam (ZOSYN) IVPB 4.5 g (premix) (0 g Intravenous Stopped 05/11/25 2140) Followed by piperacillin-tazobactam (ZOSYN) IVPB 3.375 g (premix) (3.375 g Intravenous New Bag 05/12/25 0257) vancomycin (VANCOCIN) 2000 mg in sodium chloride 0.9% 500 mL IVPB (0 mg Intravenous Stopped 05/12/25 0100) HYDROmorphone (DILAUDID) injection 0.5 mg (0.5 mg Intravenous Given 05/11/25 2082) HYDROmorphone (DILAUDID) injection 0.5 mg (0.5 mg Intravenous Given 05/12/25 0396) After reviewing the items above, I did look at previous medical documentation, such as recent hospitalizations, office visits, and/or recent consultations with PCP/specialist. SDOH: Another factor that I considered in Carmen's care was his Social Determinants of Health (SDOH). During this ED encounter, he did NOT appear to have any significant issues identified. LAB TESTING: Ancillary lab testing: Chemistry profile unremarkable and white count of 4.46, lactic acid 1.9, hemoglobin 11.5 RADIOLOGY: I did consider radiological studies for Carmen's care today: Nonacute image of the right knee. ED COURSE: Patient comes emergency room with a chief complaint of wounds to the right knee with swelling. No fevers noted. I did speak to Dr. Amin about this patient. He is advised that the patient will need significant workup and possibly even vascular consult for being noncompliant with medications and overall significant poor health. Wound culture was taken of the right knee. Orthopedics consult has been initiated. X-ray demonstrates no acute changes at this time. Patient denies any numbness or tingling to the feet. [place] [facility] [place] for further management . Clinical Impression: 1. Leg pain 2. Open wound of right knee, leg, and ankle, initial encounter 3. Cellulitis, unspecified cellulitis site Disposition: ED Disposition ED Disposition Hospitalize Condition -- Comment Recommended Level of Care: Med Surg Phone call required?: Yes Camron Goyal Jr., PA-C, PA-C ED Advanced Practice Provider [facility] [1] Social History Socioeconomic History Marital status: Single Tobacco Use Smoking status: Former Current packs/day: 0.00 Average packs/day: 0.5 packs/day for 15.0 years (7.5 ttl pk-yrs) Types: Cigarettes Start date: 1984 Quit date: 1999 Years since quittin.7 Passive exposure: Current Smokeless tobacco: Current Types: Chew Vaping Use Vaping status: Never Used Substance and Sexual Activity Alcohol use: Not Currently Drug use: Not Currently Types: Marijuana Sexual activity: Not Currently Social History Narrative Merged History Encounter Merged History Encounter Social Drivers of Health Financial Resource Strain: Low Risk (04/03/2025) Overall Financial Resource Strain (CARDIA) Difficulty of Paying Living Expenses: Not very hard Food Insecurity: No Food Insecurity (04/02/2025) Hunger Vital Sign Worried About Running Out of Food in the Last Year: Never true Ran Out of Food in the Last Year: Never true Transportation Needs: No Transportation Needs (04/02/2025) PRAPARE - Transportation Lack of Transportation (Medical): No Lack of Transportation (Non-Medical): No Housing Stability: Low Risk (04/02/2025) Housing Stability Vital Sign Unable to Pay for Housing in the Last Year: No Number of Times Moved in the Last Year: 0 Homeless in the Last Year: No [2] Allergies Allergen Reactions Naloxone Unknown Camron Goyal Jr., PA-C 05/12/25 0402 [facility] 05-12-2025 Emergency department Note Hourly rounding assessment completed on the patient. [x] Patient updated on plan of care [x] All comfort needs addressed [x] Patient updated on duration of visit All questions answered, patient denies further needs. Call light within reach. T [facility] 05-12-2025 Emergency department Note Pt is requesting pain meds [facility] 05-11-2025 Emergency department Note Bed: 19 Expected date: Expected time: Means of arrival: Comments: TR4 [facility] 05-11-2025 Emergency department Triage note Patient arrives via private car. Patient states he saw Dr Dukes on for right knee pain and that Dr told him to come to ED on Tuesday to be admitted for a procedure with Dr Dukes [facility] 05-09-2025 Note Addended by: RACHELLE PAIZ on: 05/09/2025 09:51 PM Modules accepted: Orders [facility] 05-09-2025 Miscellaneous Notes Addended by: RACHELLE COLLINS on: 05/09/2025 09:51 PM Modules accepted: Orders Addended by: RACHELLE COLLINS on: 05/09/2025 09:47 PM Modules accepted: Orders documented in this encounter [facility] 05-09-2025 Note Addended by: RACHELLE PAIZ on: 05/09/2025 09:47 PM Modules accepted: Orders [facility] 05-09-2025 Note Addended by: RACHELLE PAIZ on: 05/09/2025 09:47 PM Modules accepted: Orders [facility] 05-09-2025 Miscellaneous Notes Addended by: RACHELLE COLLINS on: 05/09/2025 09:47 PM Modules accepted: Orders documented in this encounter [facility] 05-09-2025 Note Carmen Gilman presents t [facility] with chronic right knee issues. Dr. Dukes did a knee replacement in 2019. He has had some issues over the years with swelling in the knee. He states that he was admitted to the hospital in March of this year for generalized weakness and he states at the time, his right knee was causing him issues. He has an open wound on the area. He states he was told that there was no infection in the area, but he states that the area has been draining ever since. It does not sound like he currently has anybody working with him at home. He looks like he was discharged to a nursing facility after hospitalization, but now lives at home. He is having increasing pain in the knee, also has difficulty with his left knee. PAST MEDICAL HISTORY Reviewed and is up to date on chart. REVIEW OF SYSTEMS He is positive for weakness, rash, anxiety, depression, shortness of breath. Denies any nausea or vomiting. PHYSICAL EXAM General: He is awake, alert, in no apparent distress. Unaccompanied today. He is ambulating with a walker. Musculoskeletal: Bilateral lower extremities have severe stasis dermatitis changes with significant dryness. He does have a 1 cm open wound on the lateral aspect of his right knee with significant swelling and redness. No specific warmth. He has no swelling or redness noted in the medial compartment. He has no erythema or redness noted on the left knee. ASSESSMENT/PLAN Right knee effusion, open ulceration with draining lesion on the right lateral aspect of the knee. History of right knee replacement. Dr. Dukes was consulted at this point, and after sterile technique used, the area was cleaned. An 18-gauge needle was used to drain around 5 cc of fluid from the intra-articular surface of the right knee using a medial approach. We are going to send for cultures, cell count. He is also going to be admitted to the hospital on Tuesday morning, which is 2 days from today. At that point, he is going to need to have a workup and debridement in the operating room with a wound vacuum-assisted closure placed on the right, and if cultures are showing infection in the joint space, may need antibiotic and irrigation and drainage at that time. He is again going to see Dr. Dukes Tuesday at the hospital. AUTHENTICATED BY DANIEL HAMMER, ON 05/09/2025 21:46:51 [facility] 05-09-2025 History of Present illness Narrative Carmen Gilman presents today with chronic right knee issues. Dr. Dukes did a knee replacement in 2019. He has had some issues over the years with swelling in the knee. He states that he was admitted to the hospital in March of this year for generalized weakness and he states at the time, his right knee was causing him issues. He has an open wound on the area. He states he was told that there was no infection in the area, but he states that the area has been draining ever since. It does not sound like he currently has anybody working with him at home. He looks like he was discharged to a nursing facility after hospitalization, but now lives at home. He is having increasing pain in the knee, also has difficulty with his left knee. PAST MEDICAL HISTORY Reviewed and is up to date on chart. REVIEW OF SYSTEMS He is positive for weakness, rash, anxiety, depression, shortness of breath. Denies any nausea or vomiting. PHYSICAL EXAM General: He is awake, alert, in no apparent distress. Unaccompanied today. He is ambulating with a walker. Musculoskeletal: Bilateral lower extremities have severe stasis dermatitis changes with significant dryness. He does have a 1 cm open wound on the lateral aspect of his right knee with significant swelling and redness. No specific warmth. He has no swelling or redness noted in the medial compartment. He has no erythema or redness noted on the left knee. ASSESSMENT/PLAN Right knee effusion, open ulceration with draining lesion on the right lateral aspect of the knee. History of right knee replacement. Dr. Dukes was consulted at this point, and after sterile technique used, the area was cleaned. An 18-gauge needle was used to drain around 5 cc of fluid from the intra-articular surface of the right knee using a medial approach. We are going to send for cultures, cell count. He is also going to be admitted to the hospital on Tuesday morning, which is 2 days from today. At that point, he is going to need to have a workup and debridement in the operating room with a wound vacuum-assisted closure placed on the right, and if cultures are showing infection in the joint space, may need antibiotic and irrigation and drainage at that time. He is again going to see Dr. Dukes Tuesday at the hospital. documented in this encounter [facility] 05-09-2025 History of Present illness Narrative Carmen Gilman presents today with chronic right knee issues. Dr. Dukes did a knee replacement in 2019. He has had some issues over the years with swelling in the knee. He states that he was admitted to the hospital in March of this year for generalized weakness and he states at the time, his right knee was causing him issues. He has an open wound on the area. He states he was told that there was no infection in the area, but he states that the area has been draining ever since. It does not sound like he currently has anybody working with him at home. He looks like he was discharged to a nursing facility after hospitalization, but now lives at home. He is having increasing pain in the knee, also has difficulty with his left knee. PAST MEDICAL HISTORY Reviewed and is up to date on chart. REVIEW OF SYSTEMS He is positive for weakness, rash, anxiety, depression, shortness of breath. Denies any nausea or vomiting. PHYSICAL EXAM General: He is awake, alert, in no apparent distress. Unaccompanied today. He is ambulating with a walker. Musculoskeletal: Bilateral lower extremities have severe stasis dermatitis changes with significant dryness. He does have a 1 cm open wound on the lateral aspect of his right knee with significant swelling and redness. No specific warmth. He has no swelling or redness noted in the medial compartment. He has no erythema or redness noted on the left knee. ASSESSMENT/PLAN Right knee effusion, open ulceration with draining lesion on the right lateral aspect of the knee. History of right knee replacement. Dr. Dukes was consulted at this point, and after sterile technique used, the area was cleaned. An 18-gauge needle was used to drain around 5 cc of fluid from the intra-articular surface of the right knee using a medial approach. We are going to send for cultures, cell count. He is also going to be admitted to the hospital on Tuesday morning, which is 2 days from today. At that point, he is going to need to have a workup and debridement in the operating room with a wound vacuum-assisted closure placed on the right, and if cultures are showing infection in the joint space, may need antibiotic and irrigation and drainage at that time. He is again going to see Dr. Dukes Tuesday at the hospital. documented in this encounter [facility] 04-05-2025 Plan of care note Problem: Actual or potential alteration in health Goal: Absence of healthcare acquired conditions Outcome: Met Goal: Knowledge of Interdisciplinary Plan of Care Outcome: Met Goal: Knowledge of Enviroment Outcome: Met Problem: Pain Goal: Reduced pain sensation Outcome: Met Goal: Control of acute pain to acceptable level Outcome: Met Goal: Able to cope with pain Outcome: Met Goal: Able to achieve maximum level of physical functioning Outcome: Met Goal: Able to achieve maximum level of psychosocial functioning Outcome: Met Problem: Falls, Risk of Goal: Absence of falls Outcome: Met Goal: Absence of physical injury Outcome: Met Problem: Pressure Injury, Risk of Goal: Absence of pressure injury Outcome: Met [facility] 04-05-2025 Miscellaneous Notes Problem: Actual or potential alteration in health Goal: Absence of healthcare acquired conditions Outcome: Met Goal: Knowledge of Interdisciplinary Plan of Care Outcome: Met Goal: Knowledge of Enviroment Outcome: Met Problem: Pain Goal: Reduced pain sensation Outcome: Met Goal: Control of acute pain to acceptable level Outcome: Met Goal: Able to cope with pain Outcome: Met Goal: Able to achieve maximum level of physical functioning Outcome: Met Goal: Able to achieve maximum level of psychosocial functioning Outcome: Met Problem: Falls, Risk of Goal: Absence of falls Outcome: Met Goal: Absence of physical injury Outcome: Met Problem: Pressure Injury, Risk of Goal: Absence of pressure injury Outcome: Met HMS Rapid Response Note Reason for HAND BUFFING WHEEL FORMER Call: Unresponsiveness Objective BP (!) 181/75 Pulse (!) 102 Temp 98.2 F (36.8 C) (Oral) Resp (!) 28 Ht 6' Wt 136.1 kg (300 lb) SpO2 97% BMI 40.69 kg/m Physical Examination General Appearance: alert; acutely ill appearing; in moderate acute distress Cardiovascular: regular rate and rhythm; normal S1, S2; no murmurs, rubs, clicks or gallops; no peripheral edema Respiratory: lungs clear to auscultation; without wheezes, rales or rhonchi; on non-rebreather Abdomen: soft, non-tender, non-distended; positive bowel sounds Neurological: oriented x 2; normal speech; no focal findings or movement disorder noted Providers present: Kj Norton, Carmen Charles Assessment: Per bedside nurse patient was found kneeling at his bed and was cyanotic. Rapid response was called. Patient was placed on nonrebreather. There was concern for cardiopulmonary arrest. Patient's airway and heart rate maintained. Patient did have a low SpO2 due to not having his oxygen on. Patient quickly recovered on the nonrebreather to a normal SpO2. Treatment Plan: ABG was drawn. CBC and BMP were also drawn. Patient will remain on his current floor. Will continue to assess. I spent 25 minutes providing critical care services independent of procedures and other care providers. My time managing this critically ill patient included review of interval history, laboratories, radiology and consultation reports; performing a physical examination; discussing patient with the care team and managing life sustaining therapies to prevent imminent clinical deterioration. This nurse received a vocera from Mildred FITZPATRICK, asking me to come to patient's room, upon entering room patient was leaning over the edge of bed on knees, unresponsive, nasal cannula off, face completely blue, bilateral radial pulses present, rapid response team called. 6L O2 applied to patient via nasal cannula. This nurse and Mildred FITZPATRICK, lowered patient to floor, no response to sternal rub. Teddy pad applied under patient. Patient regained consciousness. Hoyered patient into bed, see flowsheet for vitals. HAND BU[employer] WHEEL FORMER arrived Labs ordered. Awaiting for results. Patient transferred to room 2000 for his safety. Physical Therapy Plan of Care Certification Note Medicare billing rules require the provider to review and certify the physical therapy plan of care for patients in observation or outpatient status. This co-signature is to electronically certify that the above-named patient, who is under my care, requires skilled therapy services as described in the treatment plan below. I further certify that the services outlined in this plan are skilled and medically necessary. I have reviewed this plan of care for rehabilitation services and recommend that these services continue until the patient is discharged from this hospitalization or the patient is discharged from physical therapy services. Coded Admission Diagnosis Adult failure to thrive [R62.7] Generalized weakness [R53.1] Congestive heart failure, unspecified HF chronicity, unspecified heart failure type (HCC) [I50.9] PT Functional Diagnosis: R26.89 Other abnormalities of gait and mobility PT Goals Encounter Problems (Active) Problem: Impaired Strength Dates: Start: 04/03/25 Disciplines: PT Goal: PT- Strength Other Dates: Start: 04/03/25 Expected End: 04/17/25 Description: PT- Patient will be independent with HEP to improve functional mobility and safety. Disciplines: PT Intervention: Education, Therapeutic exercise Frequency: PRN Dates: Start: 04/03/25 Problem: Mobility - Impaired Dates: Start: 04/03/25 Disciplines: PT Goal: PT- sit to stand transfer Dates: Start: 04/03/25 Expected End: 04/17/25 Description: PT - Patient will perform sit to/from stand transfer with stand by assist, approriate device to improve functional mobility and safety. Disciplines: PT Goal: PT- stand-pivot transfer Dates: Start: 04/03/25 Expected End: 04/17/25 Description: PT - Patient will perform stand-pivot transfer with stand by assist, approriate device to improve functional mobility and safety. Disciplines: PT Goal: PT- ambulation Dates: Start: 04/03/25 Expected End: 04/17/25 Description: PT - Patient will ambulate 15 feet with device with stand by assist to improve functional mobility and safety. Disciplines: PT Intervention: Education, Assistive device training Frequency: PRN Dates: Start: 04/03/25 Intervention: Education, Bed mobility training Frequency: PRN Dates: Start: 04/03/25 Intervention: Education, Balance training Frequency: PRN Dates: Start: 04/03/25 Description: REMINDER(s): Reinforce education provided by Physical Therapy related to balance training. Intervention: Education, Gait training Frequency: PRN Dates: Start: 04/03/25 Intervention: Education, Therapeutic exercise Frequency: PRN Dates: Start: 04/03/25 Intervention: Education, Transfer training Frequency: PRN Dates: Start: 04/03/25 Intervention: Education, Precautions Frequency: PRN Dates: Start: 04/03/25 Frequency of Treatment: 3 days per week This physical Therapy Plan of Care will be carried out until: 1.) The PT plan has been resolved or 2.) The patient is discharged from the acute care hospital Cosigned by Shanae Nunez MD at 04/03/2025 9:01 PM EDT CHART REVIEW Reason for visit: Dietitian Screen: dx: FTT Current diet order: regular Current oral nutrition supplement: as po warrants Recent intake: 75-100 x2 Dx/Pertinent clinical information: On RDN worksheet- FTT, weakness, CHF. No mention of FTT in MD note. Per MD note- Prediabetes, A1c 6.2. Generalized weakness Inability to ambulate Chronic right knee pain Hx of T7-L2 compression fracture Past Medical History: Diagnosis Date Anxiety Arrhythmia Arthritis Asthma COPD (chronic obstructive pulmonary disease) (HCC) Diabetes (HCC) Hypertension Knee pain, left Leg swelling Opioid dependence (HCC) Secondary adrenal insufficiency 04/30/2022 left AMA 04/30/22 without treatment Height: 6' Current weight: 136.1 kg (300 lb) BMI Body mass index is 40.69 kg/m . Weight hx: Per records pt had lost wt, but most recently has gained. RDN unsure of accuracy of 310# 10/23/24. Wt Readings from Last 20 Encounters: 04/02/25 136.1 kg (300 lb) 02/21/25 129.1 kg (284 lb 9.8 oz) 02/14/25 126.6 kg (279 lb) 01/02/25 132 kg (291 lb) 11/09/24 120.2 kg (265 lb) 10/23/24 (!) 140.8 kg (310 lb 6.4 oz) 10/16/24 117.9 kg (260 lb) 07/02/24 117.9 kg (260 lb) 10/08/23 111.7 kg (246 lb 4.1 oz) 09/19/23 117.9 kg (260 lb) 09/18/23 123 kg (271 lb 1.6 oz) 07/29/23 108.9 kg (240 lb) 07/01/23 110.2 kg (243 lb) 06/10/23 110.4 kg (243 lb 6.2 oz) 05/30/23 108.9 kg (240 lb) 05/24/23 104.4 kg (230 lb 3.2 oz) 05/17/23 104.3 kg (230 lb) 05/17/23 103.4 kg (228 lb) 04/24/22 122.5 kg (270 lb) 04/20/22 122.6 kg (270 lb 4.5 oz) Labs: Recent Labs 04/02/25 1440 NA 135 K 4.4 BICARB 29 CL 99 GLUCOSE 110* BUN 13 CREATININE 0.47* Skin Integrity: intact Pt is at moderate nutritional risk at this time. Assessment will be completed by 04/09. Dietitian's Office [phone] Patient refusing urine drug screen. Informs nurse he does not want anything standing in his way of being admitted to the care home. States he is being discharged to facility tomorrow and that is the only reason he is here documented in this encounter [facility] 04-05-2025 History of Present illness Narrative Medical Transportation set up by [facility] per hospital request: Date: 04-05-25 Time: 3:00 pm Destination:[address] [address] Company: [employer] ([phone]) Special needs/equipment:Oxygen Truck Type: Ambulance Companies called:Roundtrip Transport request received and is being scheduled, trip information will follow as soon as the time is secured. [facility] [place] Patient Name: Carmen Gilman : 1965 Assessment and Plan Carmen Gilman is a 59 y.o. male patient of Ani Worley CNP with history of COPD, diabetes, hypertension, dyslipidemia, generalized anxiety disorder and opioid dependence presented to [facility] on 04/02/2025 with generalized weakness and inability to ambulate. Generalized weakness Inability to ambulate Chronic right knee pain Hx of T7-L2 compression fracture X-ray right knee reviewed no acute process.Chronic changes including effusion. Percocet for moderate to severe pain Meloxicam daily PT OT Case management for discharge needs, patient needs placement. Chronic bilateral lymphedema CXR reviewed low lung volumes with chronic interstitial changes. No consolidation or evidence congestive heart failure. NT proBNP 189 Received 1 dose of IV Lasix. Continue his home Lasix Liver cirrhosis History of chronic hep C LFTs Normal Prediabetes A1c 6.2(02/13) Continue to monitor Hx of Polysubstance use Patient used to be on buprenorphine, no longer taking Continue gabapentin Morbid Obesity Chronic hypoxemic respiratory failure POA Possible obesity hypoventilation syndrome BMI 40.69. Outpatient evaluation and management for obesity He wears 5 to 6 L of oxygen at night. There was a significant event on 04/05 at midnight. It seems that he slept without his oxygen and a rapid response was called. He improved when he was put back on oxygen. X-ray of the chest ordered and it looks fine on my independent review. Chronic pancytopenia POA On presentation, WBC 3, hemoglobin 10.9, and platelets 117. Monitor. Outpatient evaluation and management Resolved acute medical issues Discharge Planning Patient Medically Ready for Discharge: yes Patient requires continued hospitalization due to: Placement Expected Date of Discharge: 04/05/2025 Expected Discharge Location: [facility] Quality Measures DVT Prophylaxis: lovenox Tavera Catheter: absent Code Status Full Code Primary Contact Information Subjective I evaluated the patient bedside. No new concerns. Feels fine. Ready for discharge. I discussed discharge planning. All questions answered. Objective BP 100/63 Pulse 78 Temp 98 F (36.7 C) (Oral) Resp 18 Ht 6' Wt 136.1 kg (300 lb) SpO2 99% BMI 40.69 kg/m Physical Examination General Appearance: alert; chronically ill appearing; in no acute distress HEENT: Head- normocephalic; Eyes- EOMI, sclera anicteric; mucous membranes moist Cardiovascular: regular rate and rhythm; normal S1, S2; no murmurs, rubs, clicks or gallops; peripheral edema lymphedema bilaterally with chronic venous stasis changes Respiratory: lungs clear to auscultation; without wheezes, rales or rhonchi; on nasal cannula Abdomen: soft, non-tender, non-distended Neurological: no focal findings or movement disorder noted Musculoskeletal: no significant deformity or tenderness to palpation Skin: normal coloration Date: 04/05/2025 Time: 9:32 AM Patient Name: Carmen Gilman Date of : 1965 Discharge Disposition Update: Precert is approved and treatment team updated. CXR pending. Per [facility], precert is good till Tuesday04/07/25 at end of day. CM to follow. Addendum [address] Jacobs, pt can discharge to [facility] today. Ambulance transport requested. CM to follow. Addendum 1355 Transport is set up for 1500 and form to floor. Treatment team updated. Ravinder, LAWRENCE, to update SNF. Pt voices no further questions/concerns/needs. D/C Disposition: [facility] Facility Final D/C Agency/Destination: [facility] Plan A: [facility] Plan A : Post Acute Patient Choice 1: [facility] Plan A : Post Acute Patient Choice 2: [facility] Plan A : Post Acute Patient Choice 3: [facility] Plan A : Post Acute Patient Choice 4: [facility] Transportation: Transportation Type: Ambulance Discharge Disposition: ELOS Discussed with Patient / Family?: Yes Estimated Length of Stay (ELOS): 15 Precert Authorization Status: Pending HENS/PAS: PAS (DOCUMENT ID: [id number]) Reason for Choice: Patient/Family preference Regulatory Documentation: Spiritual Care Progress Note Completed by: Vinita Mitchell Person(s) Present During this Visit: Healthcare Provider Time Spent in Direct Patient Care: 5 Narrative: Attended daily medical rounds. Received updates from medical staff. Pastoral Care team will remain available to support patient and family PRN. 04/04/25 1128 Visit Background Visit With Healthcare Provider Visit By Staff Security Agent Visit Progression Other (Please Specify) (Did not participate; clinical rounds) Visit Requested By Security Agent Initiated Visit Source Security Agent Initiated Visit Type IDT Rounds Visit Circumstances and Events Routine Visit Visit Length (minutes) 5 Patient's Response to Pastoral Care Other (see comment) (Did not participate; clinical rounds) Visit Planning PRN Spiritual Assessment Not assessed during visit Restorationist Assessment Not assessed during this visit Family assessment provided? Not assessed during this visit Signature: Vinita Mitchell MDiv Staff Security Agent [facility] On-Call Security Agent /P[place]onera "On-Call Security Agent" She/Her/Hers Date: 04/04/2025 Time: 10:53 AM Patient Name: Carmen Gilman Date of : 1965 Discharge Disposition Update: [facility] declined pt. Referral to [facility] per pt and [facility] accepted. Precert started. CM to follow. Addendum 1315 PAS completed and precert still pending. CM to follow. D/C Disposition: [facility] Facility Final D/C Agency/Destination: [facility] Plan A: [facility] Plan A : Post Acute Patient Choice 1: [facility] Plan A : Post Acute Patient Choice 2: [facility] Plan A : Post Acute Patient Choice 3: [facility] Plan A : Post Acute Patient Choice 4: [facility] Transportation: Discharge Disposition: Regulatory Documentation: Spiritual Care Progress Note Completed by: Vinita Mitchell Person(s) Present During this Visit: Patient Not Available Time Spent in Direct Patient Care: 5 Narrative: I attempted to visit the pt., Carmen, while rounding. He was on the phone and unavailable at this time. Visit rescheduled for patient and/or family convenience and pastoral care availability. Pastoral Care team will remain available to support patient and family PRN. 04/04/25 1028 Visit Background Visit With Patient Not Available Visit By Staff Security Agent Visit Progression Attempt Visit Requested By Security Agent Initiated Visit Source Security Agent Initiated Visit Type Inpatient;Rounding Visit Circumstances and Events Routine Visit Visit Length (minutes) 5 Patient's Response to Pastoral Care Timing of Visit Not Optimal. Visit Rescheduled Visit Planning PRN Spiritual Assessment Not assessed during visit Restorationist Assessment Not assessed during this visit Family assessment provided? Not assessed during this visit Signature: Vinita Mitchell MDiv Staff Security Agent [facility] On-Call Security Agent /[place] "On-Call Security Agent" She/Her/Hers [facility] [place] Patient Name: Carmen Gilman : 1965 Assessment and Plan Carmen Gilman is a 59 y.o. male patient of Ani Worley CNP with history of COPD, diabetes, hypertension, dyslipidemia, generalized anxiety disorder and opioid dependence presented to [facility] on 04/02/2025 with generalized weakness and inability to ambulate. Generalized weakness Inability to ambulate Chronic right knee pain Hx of T7-L2 compression fracture X-ray right knee reviewed no acute process.Chronic changes including effusion. Percocet for moderate to severe pain Meloxicam daily PT OT Case management for discharge needs, patient needs placement. Chronic bilateral lymphedema CXR reviewed low lung volumes with chronic interstitial changes. No consolidation or evidence congestive heart failure. NT proBNP 189 Received 1 dose of IV Lasix. Continue his home Lasix Liver cirrhosis History of chronic hep C LFTs Normal Prediabetes A1c 6.2(02/13) Continue to monitor Hx of Polysubstance use Patient used to be on buprenorphine, no longer taking Continue gabapentin Morbid Obesity BMI 40.69 Outpatient evaluation and management Chronic pancytopenia POA On presentation, WBC 3, hemoglobin 10.9, and platelets 117. Monitor. Outpatient evaluation and management Resolved acute medical issues Discharge Planning Patient Medically Ready for Discharge: yes Patient requires continued hospitalization due to: Placement Expected Date of Discharge: 04/05/2025 Expected Discharge Location: [facility] Quality Measures DVT Prophylaxis: lovenox Tavera Catheter: absent Code Status Full Code Primary Contact Information Subjective I evaluated the patient bedside. No new concerns. Was sleeping comfortably in the bed. He did not have any questions. Waiting for placement. Objective BP (!) 145/75 Pulse 98 Temp 97.6 F (36.4 C) (Oral) Resp 16 Ht 6' Wt 136.1 kg (300 lb) SpO2 92% BMI 40.69 kg/m Physical Examination General Appearance: alert; chronically ill appearing; in no acute distress HEENT: Head- normocephalic; Eyes- EOMI, sclera anicteric; mucous membranes moist Cardiovascular: regular rate and rhythm; normal S1, S2; no murmurs, rubs, clicks or gallops; peripheral edema lymphedema bilaterally with chronic venous stasis changes Respiratory: lungs clear to auscultation; without wheezes, rales or rhonchi; on nasal cannula Abdomen: soft, non-tender, non-distended Neurological: no focal findings or movement disorder noted Musculoskeletal: no significant deformity or tenderness to palpation Skin: normal coloration Spiritual Care Progress Note Completed by: Vinita Mitchell Person(s) Present During this Visit: Healthcare Provider Time Spent in Direct Patient Care: 5 Narrative: Attended daily medical rounds. Received updates from medical staff. Pastoral Care team will remain available to support patient and family PRN. 04/03/25 1120 Visit Background Visit With Healthcare Provider Visit By Staff Security Agent Visit Progression Other (Please Specify) (Clinical Rounds; did not participate) Visit Requested By Security Agent Initiated Visit Source Security Agent Initiated Visit Type IDT Rounds Visit Circumstances and Events Routine Visit Visit Length (minutes) 5 Patient's Response to Pastoral Care Other (see comment) (Clinical Rounds; did not participate) Visit Planning PRN Spiritual Assessment Not assessed during visit Restorationist Assessment Not assessed during this visit Family assessment provided? Not assessed during this visit Signature: Vinita Mitchell MDiv Staff Security Agent [facility] On-Call Security Agent /Vocera "On-Call Security Agent" She/Her/Hers [facility] [place] Patient Name: Carmen Gilman : 1965 Assessment and Plan Carmen Gilman is a 59 y.o. male patient of Ani Worley CNP with history of COPD, diabetes, hypertension, dyslipidemia, generalized anxiety disorder and opioid dependence presented to [facility] on 04/02/2025 with generalized weakness and inability to ambulate. Generalized weakness Inability to ambulate Chronic right knee pain Hx of T7-L2 compression fracture X-ray right knee reviewed no acute process.Chronic changes including effusion. Percocet for moderate to severe pain Meloxicam daily PT OT Case management for discharge needs, patient needs placement. Chronic bilateral lymphedema CXR reviewed low lung volumes with chronic interstitial changes. No consolidation or evidence congestive heart failure. NT proBNP 189 Received 1 dose of IV Lasix. Liver cirrhosis History of chronic hep C LFTs Normal Prediabetes A1c 6.2(02/13) Continue to monitor Hx of Polysubstance use Patient used to be on buprenorphine, no longer taking Continue gabapentin Morbid Obesity BMI 40.69 Outpatient evaluation and management Chronic pancytopenia POA On presentation, WBC 3, hemoglobin 10.9, and platelets 117. Monitor. Outpatient evaluation and management Resolved acute medical issues Discharge Planning Patient Medically Ready for Discharge: yes Patient requires continued hospitalization due to: Placement Expected Date of Discharge: 04/05/2025 Expected Discharge Location: [facility] Quality Measures DVT Prophylaxis: lovenox Tavera Catheter: absent Code Status Full Code Primary Contact Information Subjective I evaluated the patient bedside. No new concerns but complains of his chronic pains. I have discussed the plan with him and answered all his questions. He is hoping for placement at a SNF. I reviewed the labs and x-rays as mentioned above. Objective BP 124/80 Pulse 77 Temp 98.3 F (36.8 C) (Oral) Resp (!) 20 Ht 6' Wt 136.1 kg (300 lb) SpO2 99% BMI 40.69 kg/m Physical Examination General Appearance: alert; chronically ill appearing; in no acute distress HEENT: Head- normocephalic; Eyes- EOMI, sclera anicteric; mucous membranes moist Cardiovascular: regular rate and rhythm; normal S1, S2; no murmurs, rubs, clicks or gallops; peripheral edema lymphedema bilaterally with chronic venous stasis changes Respiratory: lungs clear to auscultation; without wheezes, rales or rhonchi; on nasal cannula Abdomen: soft, non-tender, non-distended Neurological: no focal findings or movement disorder noted Musculoskeletal: no significant deformity or tenderness to palpation Skin: normal coloration Date: 04/03/2025 Time: 8:16 AM Patient Name: Carmen Gilman Date of : 1965 Discharge Disposition Update: [facility] discussed discharge plan with pt while in the ED and referral to [facility] pending. Pt from [facility] and recently left [facility] to follow. Transportation: ambulance Discharge Disposition: 04/02/25 1600 Patient Information Source of Information Chart Does Patient have a PCP? Yes Interventions [facility] New Referral Pt. discharged from 02/21/25 to [facility]. Discharge diagnosis Acute metabolic encephalopathy, Right knee swelling, MARLENE 0 resolved, liver cirrhosis, T7-L 2 compressions fx., undifferentiate shock resolved. 03/19/25 discharge to home with [facility] SN, PT/OT services. During 04/02/25 RN visit pt. request transfer to SNF d/t weakness. Transported by EMS. Relays he needs "transition to the care home" for admission to [facility]. 1618 Phoned [facility] LM with admissions. 1637 [facility] phoned s/w Funmi discharged elected to utilize [facility]. Plan to admit. documented in this encounter [facility] 04-05-2025 Hospital course Narrative [facility] [place] [facility] Carmen Gilman : 1965 Admitted: 04/02/2025 Discharge Date: 04/05/25 PCP Handoff Recommended Outpatient Testing Follow-up with the PCP Results Pending At Discharge Pending Lab and Radiology Results Order Current Status XR Chest 1 View In process Blood Culture Aerobic/Anaerobic Preliminary result Blood Culture Aerobic/Anaerobic Preliminary result Clinical Summary Carmen Gilman is a 59 y.o. male patient of Ani Worley CNP with history of COPD, diabetes, hypertension, dyslipidemia, generalized anxiety disorder and opioid dependence presented to [facility] on 04/02/2025 with generalized weakness and inability to ambulate. Generalized weakness Inability to ambulate Chronic right knee pain Hx of T7-L2 compression fracture X-ray right knee reviewed no acute process. Chronic changes including effusion. Continue meloxicam PT and OT evaluate the patient. The patient will be discharged to SNF. Chronic bilateral lymphedema CXR on admission showed low lung volumes with chronic interstitial changes. No consolidation or evidence congestive heart failure. NT proBNP 189 Received 1 dose of IV Lasix. Continue his home Lasix Liver cirrhosis History of chronic hep C LFTs Normal Outpatient follow-up Prediabetes A1c 6.2(02/13) Outpatient follow-up Hx of Polysubstance use Patient used to be on buprenorphine, no longer taking. Will carmen it to continue on discharge and defer to the outpatient setting. Continue gabapentin Morbid Obesity Chronic hypoxemic respiratory failure POA Possible obesity hypoventilation syndrome BMI 40.69. Outpatient evaluation and management for obesity He wears 5 to 6 L of oxygen at night. There was a significant event on 04/05 at midnight. It seems that he slept without his oxygen and a rapid response was called. He improved when he was put back on oxygen. X-ray of the chest ordered and it looked fine on my independent review. Chronic pancytopenia POA On presentation, WBC 3, hemoglobin 10.9, and platelets 117. Remained stable. Outpatient evaluation and management Discharge Medications Discharge Medications Medications To Continue Details albuterol 90 mcg/actuation inhaler Inhale 2 (two) puffs every 6 (six) hours as needed for wheezing . Quantity: 18 g aspirin 81 MG EC tablet Take 1 (one) tablet (81 mg total) by mouth every morning . buprenorphine HCL 2 mg Subl Commonly known as: SUBUTEX Place 2 (two) tablets (4 mg total) under the tongue every 8 (eight) hours as needed . clindamycin 300 MG capsule Commonly known as: CLEOCIN Take 1 (one) capsule (300 mg total) by mouth 4 (four) times a day . fluticasone propion-salmeteroL 250-50 mcg/dose diskus inhaler Commonly known as: ADVAIR DISKUS Inhale 1 (one) puff 2 (two) times a day . furosemide 40 MG tablet Commonly known as: LASIX Take 1 (one) tablet (40 mg total) by mouth daily . Quantity: 30 tablet gabapentin 800 MG tablet Commonly known as: NEURONTIN Take 1 (one) tablet (800 mg total) by mouth 4 (four) times a day . ipratropium-albuteroL 0.5-2.5 mg/3 ml nebulizer Commonly known as: DUO-NEB Take 3 mL by nebulization 4 (four) times a day as needed for wheezing or shortness of breath . meloxicam 7.5 MG tablet Commonly known as: MOBIC Take 1 (one) tablet (7.5 mg total) by mouth daily . Stopped Medications budesonide-formoteroL 160-4.5 mcg/actuation inhaler Commonly known as: SYMBICORT OLANZapine zydis 5 MG disintegrating tablet Commonly known as: ZYPREXA pantoprazole 20 MG tablet Commonly known as: PROTONIX Physician(s) Follow Up: [facility] Address: [address] [place] [id number] Servicing Counties: [place] [phone] Condition at Discharge: Stable Disposition: SNF I reviewed discharge recommendations with the patient in person. Patient instructions, including activity, were given to the patient/family at discharge. On day of discharge I saw Carmen Gilman and spent: > 30 minutes on discharge. Completed by: Kanchan Jacobs MD on 04/05/25, 11:48 AM documented in this encounter [facility] 04-05-2025 Note [facility] 04-05-2025 Hospital Discharge instructions Rachelle Yang RN - 04/05/2025 9:38 AM EDT Your estimated length of stay at [facility] is 15 days. documented in this encounter [facility] 04-05-2025 Progress note Formatting of t his note might be different from the original. HMS Rapid Response Note Reason for HAND BUFFING WHEEL FORMER Call: Unresponsiveness Objective BP (!) 181/75 Pulse (!) 102 Temp 98.2 F (36.8 C) (Oral) Resp (!) 28 Ht 6' Wt 136.1 kg (300 lb) SpO2 97% BMI 40.69 kg/m Physical Examination General Appearance: alert; acutely ill appearing; in moderate acute distress Cardiovascular: regular rate and rhythm; normal S1, S2; no murmurs, rubs, clicks or gallops; no peripheral edema Respiratory: lungs clear to auscultation; without wheezes, rales or rhonchi; on non-rebreather Abdomen: soft, non-tender, non-distended; positive bowel sounds Neurological: oriented x 2; normal speech; no focal findings or movement disorder noted Providers present: Rachelle MayKj Mark Kluever Assessment: Per bedside nurse patient was found kneeling at his bed and was cyanotic. Rapid response was called. Patient was placed on nonrebreather. There was concern for cardiopulmonary arrest. Patient's airway and heart rate maintained. Patient did have a low SpO2 due to not having his oxygen on. Patient quickly recovered on the nonrebreather to a normal SpO2. Treatment Plan: ABG was drawn. CBC and BMP were also drawn. Patient will remain on his current floor. Will continue to assess. I spent 25 minutes providing critical care services independent of procedures and other care providers. My time managing this critically ill patient included review of interval history, laboratories, radiology and consultation reports; performing a physical examination; discussing patient with the care team and managing life sustaining therapies to prevent imminent clinical deterioration. T [facility] Work Phone: 04-04-2025 Progress note Formatting of t his note might be different from the original. This nurse received a vocera from Mildred FITZPATRICK, asking me to come to patient's room, upon entering room patient was leaning over the edge of bed on knees, unresponsive, nasal cannula off, face completely blue, bilateral radial pulses present, rapid response team called. 6L O2 applied to patient via nasal cannula. This nurse and Mildred FITZPATRICK, lowered patient to floor, no response to sternal rub. Teddy pad applied under patient. Patient regained consciousness. Hoyered patient into bed, see flowsheet for vitals. HAND BUFFING WHEEL FORMER arrived Labs ordered. Awaiting for results. Patient transferred to room 2000 for his safety. [facility] 04-04-2025 [facility] Consult note Formatting of th is note is different from the original. Physical Therapy PHYSICAL THERAPY EVALUATION and TREATMENT NOTE Dx: generalized weakness, inability to ambulate, COPD, chronic R knee pain, hx of T7-L2 compression fracture PHYSICAL THERAPY EVALUATION Skilled Therapy Needs After Discharge Anticipate Resolution of Current Assessment Limitations Including: Pain, Mechanical Barriers, Social Support Are command post craftsman Therapy Services Needed After Discharge: Yes Intensity of command post craftsman Therapy: Up to 5 days per week Anticipated Duration of command post craftsman Therapy: > 30 days PT DME Recommendation: To be determined at next level of care Rehab Potential: Good Outcomes Measures Prior Function - Basic Mobility Raw Score: 18 Points Prior Function - Basic Mobility % Impaired: 40.47% AM-PAC Basic Mobility Raw Score: 12 Points AM-PAC Basic Mobility % Impaired: 61.94% Physical Therapy Assessment History: The following factors influence the patient's participation in the PT plan of care: Personal Factors: Limited Compliance, Limited Baseline Mobility, Apprehensive Toward Mobility, Body Habitus Environmental Factors: Lives alone The following co-morbidities (from this admission or prior) influence the patient's participation in this plan of care: See H&P Number of History elements affecting this patient's PT plan of care: 3 or more Examination of Body Systems: The patient presents with: Musculoskeletal impairments: Strength, Pain, Functional Endurance Neurologic Impairments: Balance, Pain Cardiopulmonary Impairments: Activity Tolerance. These impairments result in limitations of Gait, Functional Transfers, Safety, Safety Awareness, Activity Tolerance. These impairments result in restrictions of Household mobility, Community mobility, Leisure activities. Number of Body Systems elements affecting this patient's PT plan of care: 3 or more. Clinical Presentation: The patient's clinical presentation for this PT evaluation is evolving with changing characteristics as evidenced by current PT documentation. Activity Tolerance Activity Tolerance: Tolerates 20 - 30 min activity with multiple rests (on RA. Pt with complaints of SOB during ambulation) Therapy Precautions General Rehab Precautions: Fall risk Balance Assessment Sitting Balance - Static: Supervision Sitting Balance - Dynamic: Stand by assist Loss of Balance - Sitting Dynamic: posterior (able to self-correct) Standing Balance - Static: Contact guard assist Bridge Construction Inspector - Standing Static: wheeled walker Standing Balance - Dynamic: Minimal assist Bridge Construction Inspector - Standing Dynamic: wheeled walker Loss of Balance- Standing Dynamic: intermittent Strength Assessment Strength RLE RLE Overall Strength: 4-/5 Strength LLE LLE Overall Strength: 4-/5 Bed Mobility Supine to Sit: (bed mobility not observed - pt sitting EOB prior to and after session) Transfers Sit to Stand: Minimal assist (from EOB elevated surface height) Stand Pivot Transfers: Minimal assist Bridge Construction Inspector: wheeled walker Additional Transfer Trial 2: Yes Sit to Stand Trial 2: Moderate assist (from lower height chair) Stand Pivot Transfers Trial 2: Moderate assist Bridge Construction Inspector Trial 2: wheeled walker Gait/Locomotion Gait Assistance: Minimal assist (with close chair follow) Assistive Device: wheeled walker Distance: 3 Feet (then another 2ft after ~4min seated rest break) Pattern: step through, R impaired heel strike, L impaired heel strike, R decreased step length, L decreased step length, over reliance on upper extremities, forward flexed, antalgic, decreased veronica (steps per minute) Gait Loss(es) of Balance: intermittent Environment/Terrain: closed environment, minimal to no distractions Home Living Obtained Home Living and PLOF info from: Patient Lives With: Alone Type of Home: Apartment Home Layout: One level Steps to enter home: No (elevator) Bathroom Shower/Tub: Tub/shower unit Bathroom Toilet: Standard Bathroom Equipment: Grab bars in shower, Shower chair, Bedside commode Mobility Equipment: Wheeled walker, Cane, Wheelchair - manual, Lift chair Additional Objective Details - Home Living: Pt sleeps in lift chair Prior Level of Function Receives Help From: Family (son in law) Level of Boutte - Transfers/Ambulation/Mobility: Needs wheelchair mobility assistance (able to push self for short distance but needs assistance for longer distances) Level of Boutte - ADLs: Independent Level of Boutte - Homemaking: Needs assistance PHYSICAL THERAPY TREATMENT NOTE Total Treatment Time (Total Session Time): 20 Minutes Total Timed Code Treatment Minutes: 8 Minutes Neuromuscular Reeducation Standing Balance Treatment: weight shifting left, weight shifting right, maintaining midline, postural re-education, stepping forward, stepping backward, side stepping Skilled Intervention Provided: verbal cues, facilitation, neuromuscular re-education, patient education For: LE positioning, UE positioning, balance recovery, fall prevention, safe use of AD and/or equipment, weight shifting Resulting in: improved activity tolerance, improved performance, improved safety Gait Training Skilled Intervention Provided: verbal cues, facilitation, monitoring patient response with activity, provided step by step instructions, patient education For: device adjustment fit to patient, device management and safe use of device, fall prevention, gait technique, weight shifting Resulting in: improved activity tolerance, improved safety, improved performance Transfers Skilled Intervention Provided: verbal cues, facilitation, graded task by elevating height of sitting surface, monitoring patient response with activity, provided step by step instructions, patient education For: LE positioning, UE positioning, controlled descent, fall prevention, safety during functional tasks, safe use of AD and/or equipment Resulting in: improved activity tolerance, improved safety, improved performance Therapeutic Exercises Seated Exercises: Educated pt to complete exercises as able - ankle pumps, LAQ, SLR, marches. Completed x5 each bilaterally for form Skilled Intervention Provided: verbal cues, demonstration, instruction on proper technique/alignment, patient education For: achieving full ROM as tolerated, frequency of exercise(s), muscle activation, proper positioning of extremity Resulting in: improved functional strength/ROM, improved independence with HEP Additional Treatment Details Pt sitting EOB at end of session, bed alarm on, all needs met. Pt mobility limited by increased fatigue and pain this date. Past Medical History: Diagnosis Date Anxiety Arrhythmia Arthritis Asthma COPD (chronic obstructive pulmonary disease) ([facility]) Diabetes ([facility]) Hypertension Knee pain, left Leg swelling Opioid dependence ([facility]) Secondary adrenal insufficiency 04/30/2022 left AMA 04/30/22 without treatment Past Surgical History: Procedure Laterality Date APPENDECTOMY ARTHROPLASTY KNEE TOTAL ROBOTIC ASSISTED Right 01/08/2020 Procedure: Right Total Knee Replacement Robotic; Surgeon: Sofía Dukes MD; Location: Main OR; Service: Ortho-Robotics DEBRIDEMENT WITH WOUND CLOSURE POSS SKIN GRAFT LOWER EXTR Right 06/03/2023 Procedure: RIGHT LATERAL LEG Debridement with VERSAJET; Surgeon: ALEXEY Radford DPM; Location: Main OR; Service: Podiatry FOOT SURGERY Left MANDIBLE FRACTURE SURGERY ORTHOPEDIC SURGERY Right knee SKIN GRAFT SPLIT THICKNESS LOWER EXTREMITY Right 08/05/2023 Procedure: RIGHT LOWER LEG SPLIT THICKNESS SKIN GRAFT; Surgeon: Cecilia Gonzales DPM; Location: Main OR; Service: Podiatry THORACIC DUCT LIGATION 01/15/2017 THORACIC DUCT LIGATION WOUND VAC Right 06/03/2023 Procedure: APPLICATION WOUND VAC; Surgeon: ALEXEY Radford DPM; Location: Main OR; Service: Podiatry For complete objective data, detailed plan of care and patient education refer to: PT Evaluation flowsheet, PT Evaluation and Treatment flowsheet, PT Treatment flowsheet, patient Plan of Care, Plan of Care progress note, and Patient Education. This note stands as the current Discharge Summary upon patient discharge from the hospital or completion of Physical Therapy Plan. [facility] 04-03-2025 Consult note Formatting of th is note is different from the original. Physical Therapy PHYSICAL THERAPY EVALUATION and TREATMENT NOTE Dx: generalized weakness, inability to ambulate, COPD, chronic R knee pain, hx of T7-L2 compression fracture PHYSICAL THERAPY EVALUATION Skilled Therapy Needs After Discharge Anticipate Resolution of Current Assessment Limitations Including: Pain, Mechanical Barriers, Social Support Are command post craftsman Therapy Services Needed After Discharge: Yes Intensity of command post craftsman Therapy: Up to 5 days per week Anticipated Duration of command post craftsman Therapy: > 30 days PT DME Recommendation: To be determined at next level of care Rehab Potential: Good Outcomes Measures Prior Function - Basic Mobility Raw Score: 18 Points Prior Function - Basic Mobility % Impaired: 40.47% AM-PAC Basic Mobility Raw Score: 12 Points AM-PAC Basic Mobility % Impaired: 61.94% Physical Therapy Assessment History: The following factors influence the patient's participation in the PT plan of care: Personal Factors: Limited Compliance, Limited Baseline Mobility, Apprehensive Toward Mobility, Body Habitus Environmental Factors: Lives alone The following co-morbidities (from this admission or prior) influence the patient's participation in this plan of care: See H&P Number of History elements affecting this patient's PT plan of care: 3 or more Examination of Body Systems: The patient presents with: Musculoskeletal impairments: Strength, Pain, Functional Endurance Neurologic Impairments: Balance, Pain Cardiopulmonary Impairments: Activity Tolerance. These impairments result in limitations of Gait, Functional Transfers, Safety, Safety Awareness, Activity Tolerance. These impairments result in restrictions of Household mobility, Community mobility, Leisure activities. Number of Body Systems elements affecting this patient's PT plan of care: 3 or more. Clinical Presentation: The patient's clinical presentation for this PT evaluation is evolving with changing characteristics as evidenced by current PT documentation. Activity Tolerance Activity Tolerance: Tolerates 20 - 30 min activity with multiple rests (on RA. Pt with complaints of SOB during ambulation) Therapy Precautions General Rehab Precautions: Fall risk Balance Assessment Sitting Balance - Static: Supervision Sitting Balance - Dynamic: Stand by assist Loss of Balance - Sitting Dynamic: posterior (able to self-correct) Standing Balance - Static: Contact guard assist Bridge Construction Inspector - Standing Static: wheeled walker Standing Balance - Dynamic: Minimal assist Bridge Construction Inspector - Standing Dynamic: wheeled walker Loss of Balance- Standing Dynamic: intermittent Strength Assessment Strength RLE RLE Overall Strength: 4-/5 Strength LLE LLE Overall Strength: 4-/5 Bed Mobility Supine to Sit: (bed mobility not observed - pt sitting EOB prior to and after session) Transfers Sit to Stand: Minimal assist (from EOB elevated surface height) Stand Pivot Transfers: Minimal assist Bridge Construction Inspector: wheeled walker Additional Transfer Trial 2: Yes Sit to Stand Trial 2: Moderate assist (from lower height chair) Stand Pivot Transfers Trial 2: Moderate assist Bridge Construction Inspector Trial 2: wheeled walker Gait/Locomotion Gait Assistance: Minimal assist (with close chair follow) Assistive Device: wheeled walker Distance: 3 Feet (then another 2ft after ~4min seated rest break) Pattern: step through, R impaired heel strike, L impaired heel strike, R decreased step length, L decreased step length, over reliance on upper extremities, forward flexed, antalgic, decreased veronica (steps per minute) Gait Loss(es) of Balance: intermittent Environment/Terrain: closed environment, minimal to no distractions Home Living Obtained Home Living and PLOF info from: Patient Lives With: Alone Type of Home: Apartment Home Layout: One level Steps to enter home: No (elevator) Bathroom Shower/Tub: Tub/shower unit Bathroom Toilet: Standard Bathroom Equipment: Grab bars in shower, Shower chair, Bedside commode Mobility Equipment: Wheeled walker, Cane, Wheelchair - manual, Lift chair Additional Objective Details - Home Living: Pt sleeps in lift chair Prior Level of Function Receives Help From: Family (son in law) Level of Boutte - Transfers/Ambulation/Mobility: Needs wheelchair mobility assistance (able to push self for short distance but needs assistance for longer distances) Level of Boutte - ADLs: Independent Level of Boutte - Homemaking: Needs assistance PHYSICAL THERAPY TREATMENT NOTE Total Treatment Time (Total Session Time): 20 Minutes Total Timed Code Treatment Minutes: 8 Minutes Neuromuscular Reeducation Standing Balance Treatment: weight shifting left, weight shifting right, maintaining midline, postural re-education, stepping forward, stepping backward, side stepping Skilled Intervention Provided: verbal cues, facilitation, neuromuscular re-education, patient education For: LE positioning, UE positioning, balance recovery, fall prevention, safe use of AD and/or equipment, weight shifting Resulting in: improved activity tolerance, improved performance, improved safety Gait Training Skilled Intervention Provided: verbal cues, facilitation, monitoring patient response with activity, provided step by step instructions, patient education For: device adjustment fit to patient, device management and safe use of device, fall prevention, gait technique, weight shifting Resulting in: improved activity tolerance, improved safety, improved performance Transfers Skilled Intervention Provided: verbal cues, facilitation, graded task by elevating height of sitting surface, monitoring patient response with activity, provided step by step instructions, patient education For: LE positioning, UE positioning, controlled descent, fall prevention, safety during functional tasks, safe use of AD and/or equipment Resulting in: improved activity tolerance, improved safety, improved performance Therapeutic Exercises Seated Exercises: Educated pt to complete exercises as able - ankle pumps, LAQ, SLR, marches. Completed x5 each bilaterally for form Skilled Intervention Provided: verbal cues, demonstration, instruction on proper technique/alignment, patient education For: achieving full ROM as tolerated, frequency of exercise(s), muscle activation, proper positioning of extremity Resulting in: improved functional strength/ROM, improved independence with HEP Additional Treatment Details Pt sitting EOB at end of session, bed alarm on, all needs met. Pt mobility limited by increased fatigue and pain this date. Past Medical History: Diagnosis Date Anxiety Arrhythmia Arthritis Asthma COPD (chronic obstructive pulmonary disease) ([facility]) Diabetes ([facility]) Hypertension Knee pain, left Leg swelling Opioid dependence ([facility]) Secondary adrenal insufficiency 04/30/2022 left AMA 04/30/22 without treatment Past Surgical History: Procedure Laterality Date APPENDECTOMY ARTHROPLASTY KNEE TOTAL ROBOTIC ASSISTED Right 01/08/2020 Procedure: Right Total Knee Replacement Robotic; Surgeon: Sofía Dukes MD; Location: Main OR; Service: Ortho-Robotics DEBRIDEMENT WITH WOUND CLOSURE POSS SKIN GRAFT LOWER EXTR Right 06/03/2023 Procedure: RIGHT LATERAL LEG Debridement with VERSAJET; Surgeon: ALEXEY Radford DPM; Location: Main OR; Service: Podiatry FOOT SURGERY Left MANDIBLE FRACTURE SURGERY ORTHOPEDIC SURGERY Right knee SKIN GRAFT SPLIT THICKNESS LOWER EXTREMITY Right 08/05/2023 Procedure: RIGHT LOWER LEG SPLIT THICKNESS SKIN GRAFT; Surgeon: Cecilia Gonzales DPM; Location: Main OR; Service: Podiatry THORACIC DUCT LIGATION 01/15/2017 THORACIC DUCT LIGATION WOUND VAC Right 06/03/2023 Procedure: APPLICATION WOUND VAC; Surgeon: ALEXEY Radford DPM; Location: Main OR; Service: Podiatry For complete objective data, detailed plan of care and patient education refer to: PT Evaluation flowsheet, PT Evaluation and Treatment flowsheet, PT Treatment flowsheet, patient Plan of Care, Plan of Care progress note, and Patient Education. This note stands as the current Discharge Summary upon patient discharge from the hospital or completion of Physical Therapy Plan. Associated Order(s): IP CONSULT TO CARE MANAGEMENT Date: 04/03/2025 Time: 2:52 PM Patient Name: Carmen Gilman Date of : 1965 Reason for Consult: Discharge Plan Discussion: See VCM note from 04/02/25. Pt states difficulty caring for self at home. Referral pending to [facility]. Pt from [facility] apartments with [facility] and recently left [facility]. Pt states takes cab or has friends for transportation. Pt was on subutex but does not feel it's working and states just wants some other pain meds. CM to follow. Addendum 1450 [facility] declined and further referrals pending to [facility] and [facility]. CM to follow. Discharge Plan: Plan A: [facility] Plan A : Post Acute Patient Choice 1: [facility] Plan A : Post Acute Patient Choice 2: [facility] Plan A : Post Acute Patient Choice 3: [facility] Plan A : Post Acute Patient Choice 4: [facility] Transportation Assessment and Background Information: Family aware of the patient's advance care planning wishes:: No Income Source: Government aid Income/Expense Information: Income meets expenses Medication adherence problem:: No History of falls in last 6 months:: No Do you have any cultural/spiritual connections or beliefs that would impact how we deliver your care?: No Chronic pain:: (!) Yes Advance Directives: Advance Directive: Patient does not have advance directive, would not like information Have you reviewed your Advance Directive and is it valid for this stay?: Not applicable Information Provided on Healthcare Directives: No (pt does not want information) Patient Support: Does Patient have a PCP?: Yes Living Arrangements: Alone Type of Residence: Private residence Support Systems: Family members, Home care staff Assistance Needed: yes Caregiver Assessment: SDOH: documented in this encounter [facility] 04-03-2025 Plan of care note Physical Therapy Plan of Care Certification Note Medicare billing rules require the provider to review and certify the physical therapy plan of care for patients in observation or outpatient status. This co-signature is to electronically certify that the above-named patient, who is under my care, requires skilled therapy services as described in the treatment plan below. I further certify that the services outlined in this plan are skilled and medically necessary. I have reviewed this plan of care for rehabilitation services and recommend that these services continue until the patient is discharged from this hospitalization or the patient is discharged from physical therapy services. Coded Admission Diagnosis Adult failure to thrive [R62.7] Generalized weakness [R53.1] Congestive heart failure, unspecified HF chronicity, unspecified heart failure type (HCC) [I50.9] PT Functional Diagnosis: R26.89 Other abnormalities of gait and mobility PT Goals Encounter Problems (Active) Problem: Impaired Strength Dates: Start: 04/03/25 Disciplines: PT Goal: PT- Strength Other Dates: Start: 04/03/25 Expected End: 04/17/25 Description: PT- Patient will be independent with HEP to improve functional mobility and safety. Disciplines: PT Intervention: Education, Therapeutic exercise Frequency: PRN Dates: Start: 04/03/25 Problem: Mobility - Impaired Dates: Start: 04/03/25 Disciplines: PT Goal: PT- sit to stand transfer Dates: Start: 04/03/25 Expected End: 04/17/25 Description: PT - Patient will perform sit to/from stand transfer with stand by assist, approriate device to improve functional mobility and safety. Disciplines: PT Goal: PT- stand-pivot transfer Dates: Start: 04/03/25 Expected End: 04/17/25 Description: PT - Patient will perform stand-pivot transfer with stand by assist, approriate device to improve functional mobility and safety. Disciplines: PT Goal: PT- ambulation Dates: Start: 04/03/25 Expected End: 04/17/25 Description: PT - Patient will ambulate 15 feet with device with stand by assist to improve functional mobility and safety. Disciplines: PT Intervention: Education, Assistive device training Frequency: PRN Dates: Start: 04/03/25 Intervention: Education, Bed mobility training Frequency: PRN Dates: Start: 04/03/25 Intervention: Education, Balance training Frequency: PRN Dates: Start: 04/03/25 Description: REMINDER(s): Reinforce education provided by Physical Therapy related to balance training. Intervention: Education, Gait training Frequency: PRN Dates: Start: 04/03/25 Intervention: Education, Therapeutic exercise Frequency: PRN Dates: Start: 04/03/25 Intervention: Education, Transfer training Frequency: PRN Dates: Start: 04/03/25 Intervention: Education, Precautions Frequency: PRN Dates: Start: 04/03/25 Frequency of Treatment: 3 days per week This physical Therapy Plan of Care will be carried out until: 1.) The PT plan has been resolved or 2.) The patient is discharged from the [facility] Cosigned by Shanae Nunez MD at 04/03/2025 9:01 PM EDT [facility] 04-03-2025 Consult note Associated Order (s): IP CONSULT TO CARE MANAGEMENT Date: 04/03/2025 Time: 2:52 PM Patient Name: Carmen Gilman Date of : 1965 Reason for Consult: Discharge Plan Discussion: See VCM note from 04/02/25. Pt states difficulty caring for self at home. Referral pending to [facility]. Pt from [facility] apartments with [facility] and recently left [facility]. Pt states takes cab or has friends for transportation. Pt was on subutex but does not feel it's working and states just wants some other pain meds. CM to follow. Addendum 1455 [facility] declined and further referrals pending to [facility] and [facility]. [facility] also [facility]. CM to follow. Discharge Plan: Plan A: [facility] Plan A : Post Acute Patient Choice 1: [facility] Plan A : Post Acute Patient Choice 2: [facility] Plan A : Post Acute Patient Choice 3: [facility] Plan A : Post Acute Patient Choice 4: [facility] Transportation Assessment and Background Information: Family aware of the patient's advance care planning wishes:: No Income Source: Government aid Income/Expense Information: Income meets expenses Medication adherence problem:: No History of falls in last 6 months:: No Do you have any cultural/spiritual connections or beliefs that would impact how we deliver your care?: No Chronic pain:: (!) Yes Advance Directives: Advance Directive: Patient does not have advance directive, would not like information Have you reviewed your Advance Directive and is it valid for this stay?: Not applicable Information Provided on Healthcare Directives: No (pt does not want information) Patient Support: Does Patient have a PCP?: Yes Living Arrangements: Alone Type of Residence: Private residence Support Systems: Family members, Home care staff Assistance Needed: yes Caregiver Assessment: SDOH: [facility] 04-03-2025 Progress note Formatting of t his note is different from the original. CHART REVIEW Reason for visit: Dietitian Screen: dx: FTT Current diet order: regular Current oral nutrition supplement: as po warrants Recent intake: 75-100 x2 Dx/Pertinent clinical information: On RDN worksheet- FTT, weakness, CHF. No mention of FTT in MD note. Per MD note- Prediabetes, A1c 6.2. Generalized weakness Inability to ambulate Chronic right knee pain Hx of T7-L2 compression fracture Past Medical History: Diagnosis Date Anxiety Arrhythmia Arthritis Asthma COPD (chronic obstructive pulmonary disease) (HCC) Diabetes (HCC) Hypertension Knee pain, left Leg swelling Opioid dependence (HCC) Secondary adrenal insufficiency 04/30/2022 left AMA 04/30/22 without treatment Height: 6' Current weight: 136.1 kg (300 lb) BMI Body mass index is 40.69 kg/m . Weight hx: Per records pt had lost wt, but most recently has gained. RDN unsure of accuracy of 310# 10/23/24. Wt Readings from Last 20 Encounters: 04/02/25 136.1 kg (300 lb) 02/21/25 129.1 kg (284 lb 9.8 oz) 02/14/25 126.6 kg (279 lb) 01/02/25 132 kg (291 lb) 11/09/24 120.2 kg (265 lb) 10/23/24 (!) 140.8 kg (310 lb 6.4 oz) 10/16/24 117.9 kg (260 lb) 07/02/24 117.9 kg (260 lb) 10/08/23 111.7 kg (246 lb 4.1 oz) 09/19/23 117.9 kg (260 lb) 09/18/23 123 kg (271 lb 1.6 oz) 07/29/23 108.9 kg (240 lb) 07/01/23 110.2 kg (243 lb) 06/10/23 110.4 kg (243 lb 6.2 oz) 05/30/23 108.9 kg (240 lb) 05/24/23 104.4 kg (230 lb 3.2 oz) 05/17/23 104.3 kg (230 lb) 05/17/23 103.4 kg (228 lb) 04/24/22 122.5 kg (270 lb) 04/20/22 122.6 kg (270 lb 4.5 oz) Labs: Recent Labs 04/02/25 1440 NA 135 K 4.4 BICARB 29 CL 99 GLUCOSE 110* BUN 13 CREATININE 0.47* Skin Integrity: intact Pt is at moderate nutritional risk at this time. Assessment will be completed by 04/09. Dietitian's Office [phone] [facility] 04-03-2025 Note [facility] 04-02-2025 Progress note Formatting of t his note might be different from the original. Patient refusing urine drug screen. Informs nurse he does not want anything standing in his way of being admitted to the care home. States he is being discharged to facility tomorrow and that is the only reason he is here [facility] 04-02-2025 History and physical [place] [facility] [place] [facility] Patient Name: Carmen Gilman : 1965 MR #: [id number] Admit Date: 04/02/2025 Physicians: Ani Worley CNP (Family); No ref. provider found (Referring) Carmen Gilman is a 59 y.o. male patient of Ani Worley CNP with history of COPD, diabetes, hypertension, dyslipidemia, generalized anxiety disorder and opioid dependence presented to [facility] on 04/02/2025 with generalized weakness and inability to ambulate. Generalized weakness Inability to ambulate Chronic right knee pain Hx of T7-L2 compression fracture X-ray right knee-No acute process.Chronic changes including effusion. Percocet for moderate to severe pain PT OT Case management for discharge needs, patient needs placement. Chronic bilateral lymphedema CXR-Low lung volumes with chronic interstitial changes. No consolidation or evidence congestive heart failure. Check BNP IV Lasix 40 mg once given Liver cirrhosis History of chronic hep C LFTs Normal Check Ammonia Prediabetes A1c 6.2(02/13) Continue to monitor Hx of Polysubstance use Patient with hx of buprenorphine, no longer taking Check UDS Continue gabapentin Morbid Obesity BMI 40.69 Encourage life style modification and weight loss Residence prior to admission: house or apartment Was patient transferred from outlying hospital or ED no Quality Measures DVT Prophylaxis: lovenox Tavera Catheter: absent Medication Reconciliation: Verified Admitted with these risk variables:Chronic Fatigue/Reduced Mobility . Please see assessment and plan for further details. Estimated Date of Discharge less than 2 midnights Code Status Full Code; code status verified on 04/02/2025 with patient (capacity intact) Chief Complaint generalized weakness History of Present Illness A 59-year-old male with past medical history of COPD, diabetes, hypertension, dyslipidemia, generalized anxiety disorder and opioid dependence presents from home inquiring about placement. Patient is not able to ambulate well due to generalized weakness and fatigue. Patient is also complaining of chronic right knee pain but this seems to have worsened in the last couple days. He denies any fevers, chills, chest pain or shortness of breath. No reported nausea, vomiting, diarrhea or abdominal pain. Past Medical History Past Medical History: Diagnosis Date Anxiety Arrhythmia Arthritis Asthma COPD (chronic obstructive pulmonary disease) (HCC) Diabetes (HCC) Hypertension Knee pain, left Leg swelling Opioid dependence (HCC) Secondary adrenal insufficiency 04/30/2022 left AMA 04/30/22 without treatment Past Surgical History Past Surgical History: Procedure Laterality Date APPENDECTOMY ARTHROPLASTY KNEE TOTAL ROBOTIC ASSISTED Right 01/08/2020 Procedure: Right Total Knee Replacement Robotic; Surgeon: Sofía Dukes MD; Location: Main OR; Service: Ortho-Robotics DEBRIDEMENT WITH WOUND CLOSURE POSS SKIN GRAFT LOWER EXTR Right 06/03/2023 Procedure: RIGHT LATERAL LEG Debridement with VERSAJET; Surgeon: ALEXEY Radford DPM; Location: Main OR; Service: Podiatry FOOT SURGERY Left MANDIBLE FRACTURE SURGERY ORTHOPEDIC SURGERY Right knee SKIN GRAFT SPLIT THICKNESS LOWER EXTREMITY Right 08/05/2023 Procedure: RIGHT LOWER LEG SPLIT THICKNESS SKIN GRAFT; Surgeon: Cecilia Gonzales DPM; Location: Main OR; Service: Podiatry THORACIC DUCT LIGATION 01/15/2017 THORACIC DUCT LIGATION WOUND VAC Right 06/03/2023 Procedure: APPLICATION WOUND VAC; Surgeon: ALEXEY Radford DPM; Location: Main OR; Service: Podiatry Family History Family History Problem Relation Age of Onset Heart disease Mother Diabetes Mother Social History Tobacco Use History[1] Social History Substance and Sexual Activity Alcohol Use Not Currently Social History Substance and Sexual Activity Drug Use Not Currently Types: Marijuana Allergy Information I have reviewed the patient's allergies. Patient has no known allergies. Home Medications Home medications were reviewed. Review Of Systems All relevant systems have been reviewed and are negative except as noted in HPI or below Physical Examination BP 135/88 Pulse 78 Temp 98.4 F (36.9 C) (Oral) Resp 16 Ht 6' Wt 136.1 kg (300 lb) SpO2 93% BMI 40.69 kg/m General Appearance: alert; well appearing; in no acute distress HEENT: Head- normocephalic; Eyes- EOMI, sclera anicteric; Throat- mucous membranes moist Cardiovascular: regular rate and rhythm; normal S1, S2; no murmurs, rubs, clicks or gallops; peripheral edema 4+ Respiratory: lungs clear to auscultation; without wheezes, rales or rhonchi; on room air Abdomen: soft, non-tender, non-distended Neurological: oriented x 3; normal speech; no focal findings or movement disorder noted Musculoskeletal: no significant deformity or tenderness to palpation Skin: normal coloration Psych: normal mood and affect [1] Social History Tobacco Use Smoking Status Former Current packs/day: 0.00 Average packs/day: 0.5 packs/day for 15.0 years (7.5 ttl pk-yrs) Types: Cigarettes Start date: 1984 Quit date: 1999 Years since quittin.6 Passive exposure: Current Smokeless Tobacco Current Types: Chew [facility] 04-02-2025 History and physical note [facility] [place] [facility] Patient Name: Carmen Gilman : 1965 MR #: [id number] Admit Date: 04/02/2025 Physicians: Ani Worley CNP (Family); No ref. provider found (Referring) Carmen Gilman is a 59 y.o. male patient of Ani Worley CNP with history of COPD, diabetes, hypertension, dyslipidemia, generalized anxiety disorder and opioid dependence presented to [facility] on 04/02/2025 with generalized weakness and inability to ambulate. Generalized weakness Inability to ambulate Chronic right knee pain Hx of T7-L2 compression fracture X-ray right knee-No acute process.Chronic changes including effusion. Percocet for moderate to severe pain PT OT Case management for discharge needs, patient needs placement. Chronic bilateral lymphedema CXR-Low lung volumes with chronic interstitial changes. No consolidation or evidence congestive heart failure. Check BNP IV Lasix 40 mg once given Liver cirrhosis History of chronic hep C LFTs Normal Check Ammonia Prediabetes A1c 6.2(02/13) Continue to monitor Hx of Polysubstance use Patient with hx of buprenorphine, no longer taking Check UDS Continue gabapentin Morbid Obesity BMI 40.69 Encourage life style modification and weight loss Residence prior to admission: house or apartment Was patient transferred from outlying hospital or ED no Quality Measures DVT Prophylaxis: lovenox Tavera Catheter: absent Medication Reconciliation: Verified Admitted with these risk variables:Chronic Fatigue/Reduced Mobility . Please see assessment and plan for further details. Estimated Date of Discharge less than 2 midnights Code Status Full Code; code status verified on 04/02/2025 with patient (capacity intact) Chief Complaint generalized weakness History of Present Illness A 59-year-old male with past medical history of COPD, diabetes, hypertension, dyslipidemia, generalized anxiety disorder and opioid dependence presents from home inquiring about placement. Patient is not able to ambulate well due to generalized weakness and fatigue. Patient is also complaining of chronic right knee pain but this seems to have worsened in the last couple days. He denies any fevers, chills, chest pain or shortness of breath. No reported nausea, vomiting, diarrhea or abdominal pain. Past Medical History Past Medical History: Diagnosis Date Anxiety Arrhythmia Arthritis Asthma COPD (chronic obstructive pulmonary disease) (HCC) Diabetes (HCC) Hypertension Knee pain, left Leg swelling Opioid dependence (HCC) Secondary adrenal insufficiency 04/30/2022 left AMA 04/30/22 without treatment Past Surgical History Past Surgical History: Procedure Laterality Date APPENDECTOMY ARTHROPLASTY KNEE TOTAL ROBOTIC ASSISTED Right 01/08/2020 Procedure: Right Total Knee Replacement Robotic; Surgeon: Sofía Dukes MD; Location: Main OR; Service: Ortho-Robotics DEBRIDEMENT WITH WOUND CLOSURE POSS SKIN GRAFT LOWER EXTR Right 06/03/2023 Procedure: RIGHT LATERAL LEG Debridement with VERSAJET; Surgeon: ALEXEY Radford DPM; Location: Main OR; Service: Podiatry FOOT SURGERY Left MANDIBLE FRACTURE SURGERY ORTHOPEDIC SURGERY Right knee SKIN GRAFT SPLIT THICKNESS LOWER EXTREMITY Right 08/05/2023 Procedure: RIGHT LOWER LEG SPLIT THICKNESS SKIN GRAFT; Surgeon: Cecilia Gonzales DPM; Location: [facility] OR; Service: Podiatry THORACIC DUCT LIGATION 01/15/2017 THORACIC DUCT LIGATION WOUND VAC Right 06/03/2023 Procedure: APPLICATION WOUND VAC; Surgeon: ALEXEY Radford DPM; Location: Main OR; Service: Podiatry Family History Family History Problem Relation Age of Onset Heart disease Mother Diabetes Mother Social History Tobacco Use History[1] Social History Substance and Sexual Activity Alcohol Use Not Currently Social History Substance and Sexual Activity Drug Use Not Currently Types: Marijuana Allergy Information I have reviewed the patient's allergies. Patient has no known allergies. Home Medications Home medications were reviewed. Review Of Systems All relevant systems have been reviewed and are negative except as noted in HPI or below Physical Examination BP 135/88 Pulse 78 Temp 98.4 F (36.9 C) (Oral) Resp 16 Ht 6' Wt 136.1 kg (300 lb) SpO2 93% BMI 40.69 kg/m General Appearance: alert; well appearing; in no acute distress HEENT: Head- normocephalic; Eyes- EOMI, sclera anicteric; Throat- mucous membranes moist Cardiovascular: regular rate and rhythm; normal S1, S2; no murmurs, rubs, clicks or gallops; peripheral edema 4+ Respiratory: lungs clear to auscultation; without wheezes, rales or rhonchi; on room air Abdomen: soft, non-tender, non-distended Neurological: oriented x 3; normal speech; no focal findings or movement disorder noted Musculoskeletal: no significant deformity or tenderness to palpation Skin: normal coloration Psych: normal mood and affect [1] Social History Tobacco Use Smoking Status Former Current packs/day: 0.00 Average packs/day: 0.5 packs/day for 15.0 years (7.5 ttl pk-yrs) Types: Cigarettes Start date: 1984 Quit date: 1999 Years since quittin. Passive exposure: Current Smokeless Tobacco Current Types: Chew documented in this encounter [facility] 04-02-2025 Emergency department Note Patient given a urinal at this time. [facility] 04-02-2025 Emergency department Note Patient given a urinal at this time. Patient given menu at this time Hourly rounding assessment completed on the patient. [x] Patient updated on plan of care [x] All comfort needs addressed [x] Patient updated on duration of visit All questions answered, patient denies further needs. Call light within reach. Hourly rounding assessment completed on the patient. [x] Patient updated on plan of care [x] All comfort needs addressed [x] Patient updated on duration of visit All questions answered, patient denies further needs. Call light within reach. Pt came from home, brought by EMS. [facility] lives at home by himself and has not been able to get around the house more than usual the last couple days, PMHx: renal failure, HTN, COPD. Pt presents with chronic b/l knee and back pain, denies fall, reports was unable to get out of chair this morning and needs placement "I can't get around at home anymore". Pt A&OX4. Bed: 40 Expected date: Expected time: Means of arrival: Comments: R1 documented in this encounter [facility] 04-02-2025 Emergency department Note Patient given menu at this time [facility] 04-02-2025 Emergency department Note Hourly rounding assessment completed on the patient. [x] Patient updated on plan of care [x] All comfort needs addressed [x] Patient updated on duration of visit All questions answered, patient denies further needs. Call light within reach. [facility] 04-02-2025 Emergency department Note Hourly rounding assessment completed on the patient. [x] Patient updated on plan of care [x] All comfort needs addressed [x] Patient updated on duration of visit All questions answered, patient denies further needs. Call light within reach. [facility] 04-02-2025 Emergency department Triage note Pt came from home, brought by EMS. [facility], lives at home by himself and has not been able to get around the house more than usual the last couple days, PMHx: renal failure, HTN, COPD. Pt presents with chronic b/l knee and back pain, denies fall, reports was unable to get out of chair this morning and needs placement "I can't get around at home anymore". Pt A&OX4. [facility] 04-02-2025 Emergency department Note Bed: 40 Expected date: Expected time: Means of arrival: Comments: R1 [facility] 02-21-2025 Note [facility] 02-21-2025 Note [facility] 02-20-2025 Note [facility] 02-20-2025 Note [facility] 02-19-2025 Note [facility] 02-18-2025 Note [facility] 02-18-2025 Note [facility] 02-17-2025 Note [facility] 02-16-2025 Note [facility] 02-16-2025 Note [facility] 02-15-2025 Note [facility] 02-15-2025 Note [facility] 02-15-2025 Note [facility] 02-14-2025 Note [facility] 02-14-2025 Note [facility] 02-13-2025 Note [facility] 02-13-2025 Note [facility] 02-12-2025 Note [facility] 01-04-2025 Note [facility] 01-04-2025 History of Present illness Narrative Follow up documented in this encounter [facility] 01-04-2025 History of Present illness Narrative Images from the original note were not included. Cecilia Gonzales DPM Patient Name: Carmen Gilman. . Date of : 1965, 59 y.o.. Gender: male. Subjective: Patient is a pleasant 59-year-old male who wound care clinic for evaluation and management of wounds to bilateral lower extremity edema and wounds. Patient states that both of his legs are very swollen. Reports that he is currently on oral antibiotics that was prescribed to him by his [employer] due to his right knee swelling. No other pedal complaints at this time. Denies fevers, chills, nausea, vomiting, chest pain, shortness of breath, or any other constitutional symptoms. Past Medical History: Diagnosis Date Anxiety Arrhythmia Arthritis Asthma COPD (chronic obstructive pulmonary disease) (HCC) Diabetes (HCC) Hypertension Knee pain, left Leg swelling Opioid dependence (HCC) Secondary adrenal insufficiency 04/30/2022 left AMA 04/30/22 without treatment Past Surgical History: Procedure Laterality Date APPENDECTOMY ARTHROPLASTY KNEE TOTAL ROBOTIC ASSISTED Right 01/08/2020 Procedure: Right Total Knee Replacement Robotic; Surgeon: Sofía Dukes MD; Location: Main OR; Service: Ortho-Robotics DEBRIDEMENT WITH WOUND CLOSURE POSS SKIN GRAFT LOWER EXTR Right 06/03/2023 Procedure: RIGHT LATERAL LEG Debridement with VERSAJET; Surgeon: ALEXEY Radford DPM; Location: Main OR; Service: Podiatry FOOT SURGERY Left MANDIBLE FRACTURE SURGERY ORTHOPEDIC SURGERY Right knee SKIN GRAFT SPLIT THICKNESS LOWER EXTREMITY Right 08/05/2023 Procedure: RIGHT LOWER LEG SPLIT THICKNESS SKIN GRAFT; Surgeon: Cecilia Gonzales DPM; Location: Main OR; Service: Podiatry THORACIC DUCT LIGATION 01/15/2017 THORACIC DUCT LIGATION WOUND VAC Right 06/03/2023 Procedure: APPLICATION WOUND VAC; Surgeon: ALEXEY Radford DPM; Location: Main OR; Service: Podiatry Social History [1] Physical Examination: BP 122/78 Pulse 87 Temp 97.9 F (36.6 C) Resp 16 SpO2 90% General Appearance: Alert, cooperative, no distress, appears stated age. Podiatric Exam Vascular: DP and PT pulses are palpable . Capillary refill time is less than 3 secs to distal digits. Skin temperature is warm to warm from proximal tibial tuberosity to distal digit. +2 pitting edema noted to bilateral lower extremities Neurological: Gross sensation is intact. Protective sensation is diminished using the Stuart Jared filament. Dermatologic: See images below Musculoskeletal: Patient is able to wiggle digits ankle joint range of motion is intact. Muscle strength is 5/5 to dorsiflexors, plantar flexors, inverters and everters. Compartments soft and compressible. No calf pain Diagnoses: 1. Edema of both lower extremities [R60.0] Media: Wound 07/03/24 Cellulitis Pre-tibial Left (Active) Wound Image 11/16/24 1358 Wound Length (cm) 4.5 cm 11/16/24 1358 Wound Width (cm) 1 cm 11/16/24 1358 Wound Depth (cm) 0.1 cm 11/16/24 1358 Wound 07/03/24 Cellulitis Pre-tibial Right (Active) Wound Image 11/16/24 1358 Wound Length (cm) 5 cm 11/16/24 1358 Wound Width (cm) 4.5 cm 11/16/24 1358 Wound Depth (cm) 0.1 cm 11/16/24 1358 Wound 11/16/24 Foot Right;Mid;Plantar (Active) Wound Image 11/16/24 1359 Wound Length (cm) 1 cm 11/16/24 1359 Wound Width (cm) 1.8 cm 11/16/24 1359 Wound Surface Area (cm^2) 1.41 cm^2 11/16/24 1359 Wound 07/03/24 Cellulitis Pre-tibial Left (Active) Wound Image 11/23/24 1403 Wound Length (cm) 4.5 cm 11/16/24 1358 Wound Width (cm) 1 cm 11/16/24 1358 Wound Depth (cm) 0.1 cm 11/16/24 1358 Wound 07/03/24 Cellulitis Pre-tibial Right (Active) Wound Image 11/23/24 1402 Wound Length (cm) 5 cm 11/16/24 1358 Wound Width (cm) 4.5 cm 11/16/24 1358 Wound Depth (cm) 0.1 cm 11/16/24 1358 Wound 11/16/24 Foot Right;Mid;Plantar (Active) Wound Image 11/23/24 1404 Wound Length (cm) 1 cm 11/16/24 1359 Wound Width (cm) 1.8 cm 11/16/24 1359 Wound Surface Area (cm^2) 1.41 cm^2 11/16/24 1359 Wound 11/16/24 Foot Right;Mid;Plantar (Active) Wound Image 12/21/24 1317 Wound Length (cm) 1 cm 12/21/24 1317 Wound Width (cm) 2 cm 12/21/24 1317 Wound 12/21/24 Pre-tibial Left (Active) Wound Image 12/21/24 1318 Wound 12/21/24 Knee Anterior;Right (Active) Wound Image 12/21/24 1319 Right knee swelling and pain Assessment/Plan: Patient was seen and evaluated. Discussed all clinical findings. Patient's medial and anterior left leg wound and plantar right foot wounds have remained epithelialized. No need for excisional debridement today. Nevertheless, patient has bilateral lower extremity edema that requires compression therapy. Applied double layer Tubigrip. I offered patient Profore multilayer compression dressing but patient declined. Patient's plantar right foot wound has epithelialized. No need for excisional debridement Most pertinent was my conversation with the patient regarding his right knee redness, swelling, pain, and now and open wound that is draining. This is seriously concerning for abscess and infection that necessitates intervention/aspiration, etc. Discussed with patient that it is pertinent for him to go to the emergency department after this visit for radiographic images, possible aspiration, higher imaging, etc. Discussed with patient that there is concern that if this were to worsen, it can affect his underlying knee hardware. Patient reported that he will go to the emergency department today. Patient related understanding. All questions were answered to patient satisfaction. Patient understands to call with any questions or concerns. Follow-up in 1 week for reevaluation. This note was partially created using voice recognition software and is inherently subject to errors including those of syntax and "sound-alike" substitutions which may escape proofreading. In such instances, original meaning may be extrapolated by contextual derivation. Cecilia Gonzales DPM, MS Podiatric Physician & Surgeon [1] Social History Socioeconomic History Marital status: Single Tobacco Use Smoking status: Former Current packs/day: 0.00 Average packs/day: 0.5 packs/day for 15.0 years (7.5 ttl pk-yrs) Types: Cigarettes Start date: 1984 Quit date: 1999 Years since quittin.3 Passive exposure: Current Smokeless tobacco: Current Types: Chew Vaping Use Vaping status: Never Used Substance and Sexual Activity Alcohol use: Not Currently Drug use: Not Currently Types: Marijuana Sexual activity: Not Currently Social History Narrative Merged History Encounter Merged History Encounter Social Drivers of Health Financial Resource Strain: Low Risk (10/17/2024) Overall Financial Resource Strain (CARDIA) Difficulty of Paying Living Expenses: Not very hard Food Insecurity: Food Insecurity Present (10/16/2024) Hunger Vital Sign Worried About Running Out of Food in the Last Year: Sometimes true Ran Out of Food in the Last Year: Sometimes true Transportation Needs: No Transportation Needs (10/16/2024) PRAPARE - Transportation Lack of Transportation (Medical): No Lack of Transportation (Non-Medical): No Housing Stability: Low Risk (10/16/2024) Housing Stability Vital Sign Unable to Pay for Housing in the Last Year: No Number of Times Moved in the Last Year: 1 Homeless in the Last Year: No documented in this encounter [facility] 01-02-2025 Instructions Traci Sood MA - 01/02/2025 2:07 PM EDT How to contact your Care Team: Providers: DO Jim Boudreaux III, CNP Jill Bender, PA Nurse: Margot Gallegos To reschedule office appointments call Scheduling [phone] In case of an emergency please call 911. When in need of refills please call the phone number listed above. Please include medication name, pharmacy name and specify 30 or 90 day supply Please check with your pharmacy within 24 hours of your request for refill. You must follow up as directed to continue current refills. Thank you! documented in this encounter [facility] 01-02-2025 Note Assessment & Plan: 1. Venous congestion Ambulatory referral to Vascular Surgery 2. Edema of both lower extremities 3. Pulmonary hypertension (HCC) 4. Skin ulcer of left lower leg, limited to breakdown of skin (HCC) 5. Obesity (BMI 30-39.9) Plan: At the present time, Mr. Gilamn has adequate perfusion to both feet. His ROYCE does show noncompressibility consistent with arterial wall calcification, but waveform patterns indicate normal perfusion of both feet. I think most of the discoloration of his lower extremities is consistent with venous congestion which is probably exacerbated due to his pulmonary hypertension. At this point there is nothing further to recommend other than aggressive compressive therapy. He is continuing to be seen by Dr. Gonzales for podiatric issues as well as apparent left calf wound. Wound care therapy through Dr. Gonzales services can manage the edema with either active compression wraps or compression stockings to be worn on a daily basis. This should decrease edema as well as allow betterskin turgor and better micro perfusion to the skin edges on any wounds that he has. There is nothing further from a vascular surgical standpoint we have to offer, and we will see him on an as-needed basis. We appreciate the opportunity to consult in his care. Follow Up Ordered: No follow-ups on file. Subjective: Carmen Gilman is a 59 y.o. male seen in the office today for consultation regarding disorder of veins. Mr. Gilman (birthdate 1965) was seen in the office on January 02, 2025. He presents at the request of his family doctor's office (Ani Reina CNP). He has noticed increased discoloration of the lower extremities, and there is concern regarding vascular disease which is playing a role. He has a longstanding history of intermittent right distal thigh open wounds with some infections as well as the medial left calf ulcer. He has been seen regularly by podiatry (Dr. Gonzales) and she is actually managing his lower extremity wound status. He does state that they put Teddy wrap's on his legs, but he does not keep them on for any extensive periods of time (more than 2 to 3 days). So when he does not wrap his legs up again, his leg starts swelling and they turn purpleish because of the venous congestion. He denies any DVT. He denies any evidence of arterial insufficiency. He does state that his activity level is fairly stable, and he does not use a wheelchair except for extended distances. He does comment that he has a history significant joint problems and has had prior joint replacements and so there is some concern regarding possible infections attributable to orthopedic issues. He denies any diabetes mellitus, but his most recent hemoglobin A1c is elevated consistent with diabetic disease. He does have a history of COPD and uses inhalers. He is not on any blood thinners except aspirin for antiplatelet therapy. Histories: Past Medical History: Diagnosis Date Anxiety Arrhythmia Arthritis Asthma COPD (chronic obstructive pulmonary disease) ([facility]) Diabetes ([facility]) Hypertension Knee pain, left Leg swelling Opioid dependence ([facility]) Secondary adrenal insufficiency 04/30/2022 left AMA 04/30/22 without treatment Past Surgical History: Procedure Laterality Date APPENDECTOMY ARTHROPLASTY KNEE TOTAL ROBOTIC ASSISTED Right 01/08/2020 Procedure: Right Total Knee Replacement Robotic; Surgeon: Sofía Dukes MD; Location: Main OR; Service: Ortho-Robotics DEBRIDEMENT WITH WOUND CLOSURE POSS SKIN GRAFT LOWER EXTR Right 06/03/2023 Procedure: RIGHT LATERAL LEG Debridement with VERSAJET; Surgeon: ALEXEY Radford DPM; Location: Main OR; Service: Podiatry FOOT SURGERY Left MANDIBLE FRACTURE SURGERY ORTHOPEDIC SURGERY Right knee SKIN GRAFT SPLIT THICKNESS LOWER EXTREMITY Right 08/05/2023 Procedure: RIGHT LOWER LEG SPLIT THICKNESS SKIN GRAFT; Surgeon: Cecilia Gonzales DPM; Location: Main OR; Service: Podiatry THORACIC DUCT LIGATION 01/15/2017 THORACIC DUCT LIGATION WOUND VAC Right 06/03/2023 Procedure: APPLICATION WOUND VAC; Surgeon: ALEXEY Radford DPM; Location: Main OR; Service: Podiatry Family History Problem Relation Age of Onset Heart disease Mother Diabetes Mother Social History[1] Current Medications[2] Allergies[3] Review of Systems Constitutional: Negative for chills, decreased appetite, fever, night sweats, weight gain and weight loss. Obesity HENT: Negative. Negative for hoarse voice and sore throat. Eyes: Negative for vision loss in left eye, vision loss in right eye and visual disturbance. Cardiovascular: Positive for dyspnea on exertion and irregular heartbeat. Negative for chest pain, claudication, cyanosis, leg swelling, palpitations and paroxysmal nocturnal dyspnea. Respiratory: Positive for shortness of breath and sleep disturbances due to breathing. Negative for cough, hemoptysis and wheezing. En (more content not included)... [facility] 01-02-2025 History of Present illness Narrative Assessment & Plan: 1. Venous congestion Ambulatory referral to Vascular Surgery 2. Edema of both lower extremities 3. Pulmonary hypertension (HCC) 4. Skin ulcer of left lower leg, limited to breakdown of skin (HCC) 5. Obesity (BMI 30-39.9) Plan: At the present time, Mr. Gilman has adequate perfusion to both feet. His ROYCE does show noncompressibility consistent with arterial wall calcification, but waveform patterns indicate normal perfusion of both feet. I think most of the discoloration of his lower extremities is consistent with venous congestion which is probably exacerbated due to his pulmonary hypertension. At this point there is nothing further to recommend other than aggressive compressive therapy. He is continuing to be seen by Dr. Gonzales for podiatric issues as well as apparent left calf wound. Wound care therapy through Dr. Gonzales services can manage the edema with either active compression wraps or compression stockings to be worn on a daily basis. This should decrease edema as well as allow better skin turgor and better micro perfusion to the skin edges on any wounds that he has. There is nothing further from a vascular surgical standpoint we have to offer, and we will see him on an as-needed basis. We appreciate the opportunity to consult in his care. Follow Up Ordered: No follow-ups on file. Subjective: Carmen Gilman is a 59 y.o. male seen in the office today for consultation regarding disorder of veins. Mr. Gilman (birthdate 1965) was seen in the office on January 02, 2025. He presents at the request of his family doctor's office (Ani Reina CNP). He has noticed increased discoloration of the lower extremities, and there is concern regarding vascular disease which is playing a role. He has a longstanding history of intermittent right distal thigh open wounds with some infections as well as the medial left calf ulcer. He has been seen regularly by podiatry (Dr. Gonzales) and she is actually managing his lower extremity wound status. He does state that they put Teddy wrap's on his legs, but he does not keep them on for any extensive periods of time (more than 2 to 3 days). So when he does not wrap his legs up again, his leg starts swelling and they turn purpleish because of the venous congestion. He denies any DVT. He denies any evidence of arterial insufficiency. He does state that his activity level is fairly stable, and he does not use a wheelchair except for extended distances. He does comment that he has a history significant joint problems and has had prior joint replacements and so there is some concern regarding possible infections attributable to orthopedic issues. He denies any diabetes mellitus, but his most recent hemoglobin A1c is elevated consistent with diabetic disease. He does have a history of COPD and uses inhalers. He is not on any blood thinners except aspirin for antiplatelet therapy. Histories: Past Medical History: Diagnosis Date Anxiety Arrhythmia Arthritis Asthma COPD (chronic obstructive pulmonary disease) (HCC) Diabetes (HCC) Hypertension Knee pain, left Leg swelling Opioid dependence (HCC) Secondary adrenal insufficiency 04/30/2022 left AMA 04/30/22 without treatment Past Surgical History: Procedure Laterality Date APPENDECTOMY ARTHROPLASTY KNEE TOTAL ROBOTIC ASSISTED Right 01/08/2020 Procedure: Right Total Knee Replacement Robotic; Surgeon: Sofía Dukes MD; Location: Main OR; Service: Ortho-Robotics DEBRIDEMENT WITH WOUND CLOSURE POSS SKIN GRAFT LOWER EXTR Right 06/03/2023 Procedure: RIGHT LATERAL LEG Debridement with VERSAJET; Surgeon: ALEXEY Radford DPM; Location: Main OR; Service: Podiatry FOOT SURGERY Left MANDIBLE FRACTURE SURGERY ORTHOPEDIC SURGERY Right knee SKIN GRAFT SPLIT THICKNESS LOWER EXTREMITY Right 08/05/2023 Procedure: RIGHT LOWER LEG SPLIT THICKNESS SKIN GRAFT; Surgeon: Cecilia Gonzales DPM; Location: Main OR; Service: Podiatry THORACIC DUCT LIGATION 01/15/2017 THORACIC DUCT LIGATION WOUND VAC Right 06/03/2023 Procedure: APPLICATION WOUND VAC; Surgeon: ALEXEY Radford DPM; Location: Main OR; Service: Podiatry Family History Problem Relation Age of Onset Heart disease Mother Diabetes Mother Social History[1] Current Medications[2] Allergies[3] Review of Systems Constitutional: Negative for chills, decreased appetite, fever, night sweats, weight gain and weight loss. Obesity HENT: Negative. Negative for hoarse voice and sore throat. Eyes: Negative for vision loss in left eye, vision loss in right eye and visual disturbance. Cardiovascular: Positive for dyspnea on exertion and irregular heartbeat. Negative for chest pain, claudication, cyanosis, leg swelling, palpitations and paroxysmal nocturnal dyspnea. Respiratory: Positive for shortness of breath and sleep disturbances due to breathing. Negative for cough, hemoptysis and wheezing. Endocrine: Negative. Negative for cold intolerance. Hematologic/Lymphatic: Negative for bleeding problem. Does not bruise/bleed easily. Skin: Positive for color change (Purpleish discoloration of the lower extremities.) and poor wound healing. Negative for dry skin and nail changes. Musculoskeletal: Positive for arthritis, joint pain, myalgias and stiffness. Negative for back pain, falls, gout and muscle weakness. Gastrointestinal: Negative for abdominal pain, constipation, diarrhea, heartburn, jaundice, melena, nausea and vomiting. Genitourinary: Negative for dysuria, flank pain, frequency, hematuria and nocturia. Neurological: Positive for weakness. Negative for brief paralysis, dizziness, focal weakness, headaches, light-headedness, loss of balance, numbness and paresthesias. Psychiatric/Behavioral: Positive for substance abuse (Prior history of opiate usage.). Negative for altered mental status, depression and memory loss. The patient is not nervous/anxious. Allergic/Immunologic: Negative. Negative for hives and persistent infections. Objective: Vitals: Vitals: 01/02/25 1407 01/02/25 1426 BP: 117/74 109/72 BP Location: Right arm Left arm Patient Position: Sitting Sitting Pulse: 89 87 SpO2: 92% Weight: 132 kg (291 lb) Height: 6' Physical Exam Vitals reviewed. Constitutional: General: He is awake. Appearance: Normal appearance. He is well-developed. He is obese. HENT: Head: Normocephalic and atraumatic. Eyes: General: Lids are normal. Extraocular Movements: Extraocular movements intact. Conjunctiva/sclera: Conjunctivae normal. Neck: Thyroid: No thyromegaly. Vascular: Normal carotid pulses. No carotid bruit or JVD. Trachea: Trachea normal. Cardiovascular: Rate and Rhythm: Normal rate and regular rhythm. Occasional Extrasystoles are present. Pulses: Intact distal pulses. Carotid pulses are 2+ on the right side and 2+ on the left side. Radial pulses are 2+ on the right side and 2+ on the left side. Popliteal pulses are 2+ on the right side and 2+ on the left side. Dorsalis pedis pulses are 2+ on the right side and 2+ on the left side. Posterior tibial pulses are 1+ on the right side and 1+ on the left side. Heart sounds: Normal heart sounds. No murmur heard. Comments: No primary, secondary, tertiary varicose veins are noted bilateral lower extremities. Pulmonary: Effort: Pulmonary effort is normal. Breath sounds: Examination of the right-lower field reveals decreased breath sounds and wheezing. Examination of the left-lower field reveals decreased breath sounds and wheezing. Decreased breath sounds, wheezing and rhonchi present. No rales. Abdominal: General: Abdomen is protuberant. Bowel sounds are normal. Palpations: Abdomen is soft. Abdomen is not rigid. Tenderness: There is no abdominal tenderness. There is no guarding. Comments: Limited exam due to body habitus and obesity. Musculoskeletal: Cervical back: Full passive range of motion without pain, normal range of motion and neck supple. Right upper leg: Swelling (Distal right lateral thigh at open wound site.) present. Right knee: Decreased range of motion. Left knee: Decreased range of motion. Right lower le+ Pitting Edema present. Left lower le+ Pitting Edema present. Right foot: Decreased range of motion. Normal capillary refill. Normal pulse. Left foot: Decreased range of motion. Normal capillary refill. Normal pulse. Skin: General: Skin is warm and dry. Capillary Refill: Capillary refill takes less than 2 seconds. Findings: Wound (Medial left calf and distal lateral right thigh) present. Nails: There is no clubbing. Comments: Venous discoloration and venous congestion noted bilateral extremities. Questionable early hemosiderin deposition is noted bilateral extremities though difficult to assess with underlying venous discoloration. Neurological: General: No focal deficit present. Mental Status: He is alert and oriented to person, place, and time. Cranial Nerves: Cranial nerves 2-12 are intact. Sensory: Sensation is intact. Motor: Motor function is intact. Coordination: Coordination is intact. Gait: Gait is intact. Psychiatric: Attention and Perception: Attention and perception normal. Mood and Affect: Mood normal. Affect is flat (Mildly). Speech: Speech normal. Behavior: Behavior normal. Behavior is cooperative. Thought Content: Thought content normal. Cognition and Memory: Cognition and memory normal. Judgment: Judgment normal. Lab Review: The following labs were reviewed and within the chart Bilateral ankle-brachial indices performed on October 17, 2024 indicate unknown ABIs due to vessel wall calcification. However, based on waveform criteria, bilateral ankle PVR and Doppler waveforms are satisfactory indicating normal perfusion to both feet. Venous duplex scan bilateral lower extremities performed on July 02, 2024 indicate no evidence of deep or superficial venous thrombosis in bilateral lower extremities. [1] Social History Tobacco Use Smoking status: Former Current packs/day: 0.00 Average packs/day: 0.5 packs/day for 15.0 years (7.5 ttl pk-yrs) Types: Cigarettes Start date: 1984 Quit date: 1999 Years since quittin.3 Passive exposure: Current Smokeless tobacco: Current Types: Chew Vaping Use Vaping status: Never Used Substance Use Topics Alcohol use: Not Currently Drug use: Not Currently Types: Marijuana [2] Current Outpatient Medications Medication Sig Dispense Refill albuterol (PROVENTIL) 2.5 mg /3 mL (0.083 %) nebulizer solution Take 3 mL (2.5 mg total) by nebulization every 6 (six) hours as needed for wheezing . 75 mL 0 albuterol 90 mcg/actuation inhaler Inhale 2 (two) puffs every 6 (six) hours as needed for wheezing . 18 g 1 aspirin 81 MG EC tablet Take 1 (one) tablet (81 mg total) by mouth every morning . buprenorphine HCL (SUBUTEX) [address] 2.5 tablets under the tongue daily Reasons: opioid use disorder. (Patient taking differently: Place 2.5 tablets under the tongue 3 (three) times a day 1 tablet AM, 1 tablet PM, 1/2 tablet at Bedtime Reasons: opioid use disorder.) diltiazem (TIAZAC) 240 MG 24 hr capsule Take 1 (one) capsule (240 mg total) by mouth every morning . furosemide (LASIX) 40 MG tablet Take 1 (one) tablet (40 mg total) by mouth 2 (two) times a day . 60 tablet 2 gabapentin (NEURONTIN) 600 MG tablet Take 1 (one) tablet (600 mg total) by mouth 4 (four) times a day . ipratropium-albuteroL (DUO-NEB) 0.5-2.5 mg/3 ml nebulizer Take 3 mL by nebulization 4 (four) times a day as needed for wheezing or shortness of breath . lisinopriL (PRINIVIL,ZESTRIL) 40 MG tablet Take 1 (one) tablet (40 mg total) by mouth daily . meloxicam (MOBIC) 15 MG tablet Take 1 (one) tablet (15 mg total) by mouth daily . sulfamethoxazole-trimethoprim (BACTRIM DS,SEPTRA DS) 800-160 mg per tablet 2 (two) times a day . Symbicort 160-4.5 mcg/actuation inhaler Inhale 2 (two) puffs 2 (two) times a day . naloxone (NARCAN) 4 mg/actuation [place] Administer 1 spray into one nostril for known or suspected opioid overdose. If patient worsens or does not respond, may repeat in 2-3 minutes. . (Patient not taking: Reported on 01/02/2025 .) 2 each 1 pantoprazole (PROTONIX) 20 MG tablet Take 1 (one) tablet (20 mg total) by mouth daily Start: 01/09/20. (Patient not taking: Reported on 01/02/2025 .) 30 tablet 0 spironolactone (ALDACTONE) 25 MG tablet Take 2 (two) tablets (50 mg total) by mouth daily . (Patient not taking: Reported on 01/02/2025 .) 60 tablet 2 No current facility-administered medications for this visit. [3] No Known Allergies documented in this encounter [facility] 12-24-2024 History of Present illness Narrative Placed call to Ani Worley [facility] office to clarify referral and patient's needs in our practice. Provided fax number to send necessary documentation. documented in this encounter [facility] 12-21-2024 Katie Rogel [facility] 12-21-2024 History of Present illness Narrative Associated Order(s): Wound Debridement Post-Procedure Diagnose(s): Skin ulcer of plantar aspect of right foot with necrosis of muscle (HCC) Wound Debridement Performed by: Cecilia Gonzales DPM Authorized by: Cecilia Gonzales DPM Consent Consent obtained? verbal Consent given by: patient Risks discussed? procedural risks discussed Debridement Details Performed by: physician Debridement type: surgical Level of debridement: subcutaneous tissue Post-debridement measurements Length (cm): 1 Width (cm): 1 Depth (cm): 0.2 Percent debrided: 100% Surface Area (cm^2): 0.79 Area Debrided (cm^2): 0.79 Volume (cm^3): 0.1 Tissue and other material debrided: subcutaneous tissue Devitalized tissue debrided: biofilm, fibrin and slough Instrument(s) utilized: curette and blade Bleeding: small Hemostasis obtained with: pressure Response to treatment: procedure was tolerated well documented in this encounter [facility] 12-21-2024 History of Present illness Narrative Associated Order(s): Wound Debridement Post-Procedure Diagnose(s): Skin ulcer of plantar aspect of right foot with necrosis of muscle (HCC) Images from the original note were not included. Cecilia Gonzales DPM Patient Name: Carmen Cai . Date of : 1965, 59 y.o.. Gender: male. Subjective: Patient is a pleasant 59-year-old male who wound care clinic for evaluation and management of wounds to bilateral lower extremity edema and wounds. Patient states that his legs have improved in terms of swelling and he stopped wearing any compression socks. Moreover, patient's left leg wound has closed but he continues to have a right foot wound. Most pertinent is his complaint today of redness, swelling and pain over his right knee. Stated he needs to see an orthopedist. No other pedal complaints at this time. Denies fevers, chills, nausea, vomiting, chest pain, shortness of breath, or any other constitutional symptoms. Past Medical History: Diagnosis Date Anxiety Arrhythmia Arthritis Asthma COPD (chronic obstructive pulmonary disease) (HCC) Diabetes (HCC) Hypertension Opioid dependence (HCC) Secondary adrenal insufficiency 04/30/2022 left AMA 04/30/22 without treatment Past Surgical History: Procedure Laterality Date APPENDECTOMY ARTHROPLASTY KNEE TOTAL ROBOTIC ASSISTED Right 01/08/2020 Procedure: Right Total Knee Replacement Robotic; Surgeon: Sofía Dukes MD; Location: Main OR; Service: Ortho-Robotics DEBRIDEMENT WITH WOUND CLOSURE POSS SKIN GRAFT LOWER EXTR Right 06/03/2023 Procedure: RIGHT LATERAL LEG Debridement with VERSAJET; Surgeon: ALEXEY Radford DPM; Location: Main OR; Service: Podiatry FOOT SURGERY Left MANDIBLE FRACTURE SURGERY ORTHOPEDIC SURGERY Right knee SKIN GRAFT SPLIT THICKNESS LOWER EXTREMITY Right 08/05/2023 Procedure: RIGHT LOWER LEG SPLIT THICKNESS SKIN GRAFT; Surgeon: Cecilia Gonzales DPM; Location: Main OR; Service: Podiatry THORACIC DUCT LIGATION 01/15/2017 THORACIC DUCT LIGATION WOUND VAC Right 06/03/2023 Procedure: APPLICATION WOUND VAC; Surgeon: ALEXEY Radford DPM; Location: Main OR; Service: Podiatry Social History [1] Physical Examination: BP 137/88 Pulse 90 Temp 97 F (36.1 C) Resp 16 SpO2 95% General Appearance: Alert, cooperative, no distress, appears stated age. Podiatric Exam Vascular: DP and PT pulses are palpable . Capillary refill time is less than 3 secs to distal digits. Skin temperature is warm to warm from proximal tibial tuberosity to distal digit. +2 pitting edema noted to bilateral lower extremities Neurological: Gross sensation is intact. Protective sensation is diminished using the Stuart Jared filament. Dermatologic: See images below Musculoskeletal: Patient is able to wiggle digits ankle joint range of motion is intact. Muscle strength is 5/5 to dorsiflexors, plantar flexors, inverters and everters. Compartments soft and compressible. No calf pain Diagnoses: 1. Skin ulcer of plantar aspect of right foot with necrosis of muscle (HCC) Wound Debridement Media: Wound 07/03/24 Cellulitis Pre-tibial Left (Active) Wound Image 11/16/24 1358 Wound Length (cm) 4.5 cm 11/16/24 1358 Wound Width (cm) 1 cm 11/16/24 1358 Wound Depth (cm) 0.1 cm 11/16/24 1358 Wound 07/03/24 Cellulitis Pre-tibial Right (Active) Wound Image 11/16/24 1358 Wound Length (cm) 5 cm 11/16/24 1358 Wound Width (cm) 4.5 cm 11/16/24 1358 Wound Depth (cm) 0.1 cm 11/16/24 1358 Wound 11/16/24 Foot Right;Mid;Plantar (Active) Wound Image 11/16/24 1359 Wound Length (cm) 1 cm 11/16/24 1359 Wound Width (cm) 1.8 cm 11/16/24 135 Wound Surface Area (cm^2) 1.41 cm^2 11/16/24 135 Wound 07/03/24 Cellulitis Pre-tibial Left (Active) Wound Image 11/23/24 1403 Wound Length (cm) 4.5 cm 11/16/24 1358 Wound Width (cm) 1 cm 11/16/24 1358 Wound Depth (cm) 0.1 cm 11/16/24 1358 Wound 07/03/24 Cellulitis Pre-tibial Right (Active) Wound Image 11/23/24 1402 Wound Length (cm) 5 cm 11/16/24 1358 Wound Width (cm) 4.5 cm 11/16/24 1358 Wound Depth (cm) 0.1 cm 11/16/24 1358 Wound 11/16/24 Foot Right;Mid;Plantar (Active) Wound Image 11/23/24 1404 Wound Length (cm) 1 cm 11/16/24 1359 Wound Width (cm) 1.8 cm 11/16/24 1359 Wound Surface Area (cm^2) 1.41 cm^2 11/16/24 1359 Wound 11/16/24 Foot Right;Mid;Plantar (Active) Wound Image 12/21/24 1317 Wound Length (cm) 1 cm 12/21/24 1317 Wound Width (cm) 2 cm 12/21/24 1317 Wound 12/21/24 Pre-tibial Left (Active) Wound Image 12/21/24 1318 Wound 12/21/24 Knee Anterior;Right (Active) Wound Image 12/21/24 1319 Right knee swelling and pain Assessment/Plan: Patient was seen and evaluated. Discussed all clinical findings. Patient's medial and anterior left leg wound and plantar right foot wounds have also epithelialized. No need for excisional debridement today. Patient has a full-thickness ulcer noted to the plantar medial right foot that requires excisional debridement to remove nonviable soft tissue and biofilm. See procedure below. Following review, applied Gavino, 4 x 4, Kerlix and Teddy bandage. Discussed with patient the importance of continuing compression dressing. Applied Tubigrip to the left leg. Most pertinent was my conversation with the patient regarding his right knee swelling, pain. Discussed with patient concern for underlying abscess versus effusion requiring intervention/aspiration, etc. Discussed with patient that it is important for him to go to the emergency department for further evaluation, radiographic images, possible aspiration, higher imaging, etc. Discussed with patient that there is concern that if this were to worsen, it can affect his underlying knee hardware. Patient reported that he will go to the emergency department today. Patient related understanding. All questions were answered to patient satisfaction. Patient understands to call with any questions or concerns. Follow-up in 1 week for reevaluation. This note was partially created using voice recognition software and is inherently subject to errors including those of syntax and "sound-alike" substitutions which may escape proofreading. In such instances, original meaning may be extrapolated by contextual derivation. Cecilia Gonzales DPM, MS Podiatric Physician & Surgeon Wound Debridement Performed by: Cecilia Gonzales DPM Authorized by: Cecilia Gonzales DPM Consent Consent obtained? verbal Consent given by: patient Risks discussed? procedural risks discussed Debridement Details Performed by: physician Debridement type: surgical Level of debridement: subcutaneous tissue Post-debridement measurements Length (cm): 1 Width (cm): 1 Depth (cm): 0.2 Percent debrided: 100% Surface Area (cm^2): 0.79 Area Debrided (cm^2): 0.79 Volume (cm^3): 0.1 Tissue and other material debrided: subcutaneous tissue Devitalized tissue debrided: biofilm, fibrin and slough Instrument(s) utilized: curette and blade Bleeding: small Hemostasis obtained with: pressure Response to treatment: procedure was tolerated well [1] Social History Socioeconomic History Marital status: Single Tobacco Use Smoking status: Former Passive exposure: Current Smokeless tobacco: Current Types: Chew Vaping Use Vaping status: Never Used Substance and Sexual Activity Alcohol use: Not Currently Drug use: Not Currently Types: Marijuana Sexual activity: Not Currently Social History Narrative Merged History Encounter Merged History Encounter Social Drivers of Health Financial Resource Strain: Low Risk (10/17/2024) Overall Financial Resource Strain (CARDIA) Difficulty of Paying Living Expenses: Not very hard Food Insecurity: Food Insecurity Present (10/16/2024) Hunger Vital Sign Worried About Running Out of Food in the Last Year: Sometimes true Ran Out of Food in the Last Year: Sometimes true Transportation Needs: No Transportation Needs (10/16/2024) PRAPARE - Transportation Lack of Transportation (Medical): No Lack of Transportation (Non-Medical): No Housing Stability: Low Risk (10/16/2024) Housing Stability Vital Sign Unable to Pay for Housing in the Last Year: No Number of Times Moved in the Last Year: 1 Homeless in the Last Year: No documented in this encounter [facility] 12-21-2024 Instructions Jeri Dillon RN - 12/21/2024 2:13 PM EDT Dakin wet-to-dry to the medial foot wound, 4 x 4, double layer Tubigrip on the right Tubigrip on the left Frequency: Daily Follow up: 1 week(s) documented in this encounter [facility] 11-23-2024 Note Rosa Ferreira R N 11/23/2024 3:19 PM Multi-layer Compression Wrap Procedure Performed for: Bilat legs for edema control Performed by:: Clinician haven Procedural Pain: 0 Bandage Type: Compression Compression Layers: Multi-layer Compression Product Type: Profore Regular Dressing Applied: No Extremity Location: Below Knee [facility] 11-23-2024 History of Present illness Narrative Associated Order(s): Multi-Layer Compression Dressing Post-Procedure Diagnose(s): Skin ulcer of left lower leg with fat layer exposed (HCC); Skin ulcer of right lower leg with fat layer exposed (HCC) Multi-layer Compression Wrap Procedure Performed for: Bilat legs for edema control Performed by:: Clinician haven Procedural Pain: 0 Bandage Type: Compression Compression Layers: Multi-layer Compression Product Type: Profore Regular Dressing Applied: No Extremity Location: Below Knee Images from the original note were not included. Cecilia Gonzales DPM Patient Name: Carmen Gilman. . Date of : 1965, 59 y.o.. Gender: male. Subjective: Patient is a pleasant 59-year-old male who wound care clinic for evaluation and management of wounds to bilateral lower extremity edema. Patient has wounds to the medial left leg and plantar right foot. No other pedal complaints at this time. Denies fevers, chills, nausea, vomiting, chest pain, shortness of breath, or any other constitutional symptoms. Past Medical History: Diagnosis Date Anxiety Arrhythmia Arthritis Asthma COPD (chronic obstructive pulmonary disease) (HCC) Diabetes (HCC) Hypertension Opioid dependence (HCC) Secondary adrenal insufficiency 04/30/2022 left AMA 04/30/22 without treatment Past Surgical History: Procedure Laterality Date APPENDECTOMY ARTHROPLASTY KNEE TOTAL ROBOTIC ASSISTED Right 01/08/2020 Procedure: Right Total Knee Replacement Robotic; Surgeon: Sofía Dukes MD; Location: Main OR; Service: Ortho-Robotics DEBRIDEMENT WITH WOUND CLOSURE POSS SKIN GRAFT LOWER EXTR Right 06/03/2023 Procedure: RIGHT LATERAL LEG Debridement with VERSAJET; Surgeon: ALEXEY Radford DPM; Location: Main OR; Service: Podiatry FOOT SURGERY Left MANDIBLE FRACTURE SURGERY ORTHOPEDIC SURGERY Right knee SKIN GRAFT SPLIT THICKNESS LOWER EXTREMITY Right 08/05/2023 Procedure: RIGHT LOWER LEG SPLIT THICKNESS SKIN GRAFT; Surgeon: Cecilia Gonazles DPM; Location: Main OR; Service: Podiatry THORACIC DUCT LIGATION 01/15/2017 THORACIC DUCT LIGATION WOUND VAC Right 06/03/2023 Procedure: APPLICATION WOUND VAC; Surgeon: ALEXEY Radford DPM; Location: Main OR; Service: Podiatry Social History [1] Physical Examination: BP (!) 145/86 Pulse 91 Temp 97.4 F (36.3 C) Resp 16 SpO2 91% General Appearance: Alert, cooperative, no distress, appears stated age. Podiatric Exam Vascular: DP and PT pulses are palpable . Capillary refill time is less than 3 secs to distal digits. Skin temperature is warm to warm from proximal tibial tuberosity to distal digit. +2 pitting edema noted to bilateral lower extremities Neurological: Gross sensation is intact. Protective sensation is diminished using the Stuart Jared filament. Dermatologic: See images below Musculoskeletal: Patient is able to wiggle digits ankle joint range of motion is intact. Muscle strength is 5/5 to dorsiflexors, plantar flexors, inverters and everters. Compartments soft and compressible. No calf pain Diagnoses: 1. Skin ulcer of right lower leg with fat layer exposed (HCC) 2. Skin ulcer of left lower leg with fat layer exposed (HCC) 3. Skin ulcer of plantar aspect of right foot with necrosis of muscle (HCC) Media: Wound 07/03/24 Cellulitis Pre-tibial Left (Active) Wound Image 11/16/24 1358 Wound Length (cm) 4.5 cm 11/16/24 1358 Wound Width (cm) 1 cm 11/16/24 1358 Wound Depth (cm) 0.1 cm 11/16/24 1358 Wound 07/03/24 Cellulitis Pre-tibial Right (Active) Wound Image 11/16/24 1358 Wound Length (cm) 5 cm 11/16/24 1358 Wound Width (cm) 4.5 cm 11/16/24 1358 Wound Depth (cm) 0.1 cm 11/16/24 1358 Wound 11/16/24 Foot Right;Mid;Plantar (Active) Wound Image 11/16/24 1359 Wound Length (cm) 1 cm 11/16/24 1359 Wound Width (cm) 1.8 cm 11/16/24 1359 Wound Surface Area (cm^2) 1.41 cm^2 11/16/24 1359 Wound 07/03/24 Cellulitis Pre-tibial Left (Active) Wound Image 11/23/24 1403 Wound Length (cm) 4.5 cm 11/16/24 1358 Wound Width (cm) 1 cm 11/16/24 1358 Wound Depth (cm) 0.1 cm 11/16/24 1358 Wound 07/03/24 Cellulitis Pre-tibial Right (Active) Wound Image 11/23/24 1402 Wound Length (cm) 5 cm 11/16/24 1358 Wound Width (cm) 4.5 cm 11/16/24 1358 Wound Depth (cm) 0.1 cm 11/16/24 1358 Wound 11/16/24 Foot Right;Mid;Plantar (Active) Wound Image 11/23/24 1404 Wound Length (cm) 1 cm 11/16/24 1359 Wound Width (cm) 1.8 cm 11/16/24 1359 Wound Surface Area (cm^2) 1.41 cm^2 11/16/24 1359 Assessment/Plan: Patient was seen and evaluated. Discussed all clinical findings. Patient has no new wounds to his right leg. Prior wounds have epithelialized. Patient does have a small wound to the plantar right foot. No need for excisional debridement. Patient's medial left leg wound and plantar right foot wounds have also epithelialized. No need for excisional debridement today. However, patient has bilateral lower extremity edema that requires multilayer compression dressing for edema control. Therefore, bilateral multilayer Profore dressing was applied sequentially from toes to knee for edema control. Patient is instructed to keep dressing clean and dry for 1 week. All questions were answered to patient satisfaction. Patient understands to call with any questions or concerns. Follow-up in 1 week for reevaluation. This note was partially created using voice recognition software and is inherently subject to errors including those of syntax and "sound-alike" substitutions which may escape proofreading. In such instances, original meaning may be extrapolated by contextual derivation. ESTHER TysonM, MS Podiatric Physician & Surgeon [1] Social History Socioeconomic History Marital status: Single Tobacco Use Smoking status: Former Passive exposure: Current Smokeless tobacco: Current Types: Chew Vaping Use Vaping status: Never Used Substance and Sexual Activity Alcohol use: Not Currently Drug use: Not Currently Types: Marijuana Sexual activity: Not Currently Social History Narrative Merged History Encounter Merged History Encounter Social Drivers of Health Financial Resource Strain: Low Risk (10/17/2024) Overall Financial Resource Strain (CARDIA) Difficulty of Paying Living Expenses: Not very hard Food Insecurity: Food Insecurity Present (10/16/2024) Hunger Vital Sign Worried About Running Out of Food in the Last Year: Sometimes true Ran Out of Food in the Last Year: Sometimes true Transportation Needs: No Transportation Needs (10/16/2024) PRAPARE - Transportation Lack of Transportation (Medical): No Lack of Transportation (Non-Medical): No Housing Stability: Low Risk (10/16/2024) Housing Stability Vital Sign Unable to Pay for Housing in the Last Year: No Number of Times Moved in the Last Year: 1 Homeless in the Last Year: No documented in this encounter [facility] 11-23-2024 Instructions Rosa Ferreira RN - 11/23/2024 2:17 PM EDT Profore bilaterally Frequency: Keep clean and dry Follow up: 1 week(s) documented in this encounter [facility] 11-23-2024 Note [facility] 11-16-2024 Note [facility] 11-09-2024 Note [facility] 10-24-2024 History of Present illness Narrative Care Management Progress Note Date: 10/24/2024 Time: 1:07 PM Patient Name: Carmen Gilman Date of : 1965 Discharge Plan: Regulatory Documentation: Medicare IM Regulatory Documentation Status: Certified Plan A: Home Health Care Services Plan B: Home Patient Paper Copy: Patient declined paper copy Discharging Transportation Plan: Discharge Plan Status: pend dc today Assessment and Background Information: Plan is for pt to discharge home today w/ [facility]. Pt to also f/u in the wound clinic. Pt voices no further questions/concerns/needs. Received response from [facility] , unable to accept patient due to unable to meet needs. Care Management Progress Note Date: 10/23/2024 Time: 9:44 AM Patient Name: Carmen Gilman Date of : 1965 Discharge Plan: Regulatory Documentation: Medicare IM Regulatory Documentation Status: Certified Plan A: Home Health Care Services Plan B: Home Patient Paper Copy: Patient declined paper copy Discharging Transportation Plan: Discharge Plan Status: pend medical readiness Assessment and Background Information: Per Dr. Vargas, pt now wants to go to [facility] on discharge but per therapy, pt does not have any skilled needs at this time. Pt will need wound care. Referral to [facility]. CM to follow. Addendum 1520 [facility] declined pt. This RN CM spoke with pt about the lack of need for skilled therapy at SNF and pt is agreeable to go home w/ [facility] on discharge. CM to follow. [facility] [place] and Plan Carmen Gilman is a 59 y.o. adult patient of Ani Worley CNP with history of of COPD, diabetes mellitus, hypertension, hyperlipidemia, opiate dependence, anxiety disorder and arthritis presents with complaints of shortness of breath associated with some dry cough and had a mechanical fall today. Acute on chronic hypoxic respiratory failure Acute COPD exacerbation Still requiring 2-3 L , he stated he has home O2 for as needed use Respiratory failure secondary to COPD exacerbation and some amount of hypervolemia as well COVID and influenza negative. MRSA probe negative. CTPA negative for pulm embolism although suboptimal opacification. Completed Po prednisone/ azithromycin, bronchodilators. Symbicort changed to Dulera. Incentive spirometer. - patient has been refusing his lasix, dicsussed with patient and RN to administer lasix Liver cirrhosis Portal hypertension Esophageal varices Hepatitis C Chronic thrombocytopenia CT abdomen pelvis shows cirrhotic liver morphology with stigmata of portal venous hypertension. No acute pathology. Continue Aldactone and Lasix. Has no extremity edema likely due to cirrhosis. Echo 05/31/2023 reviewed-EF 65 to 70%, diastolic function normal, no significant valve disease. RVSP 49. Compression stockings bilateral lower extremities. Increase IV Lasix to 40mg TID and continue Aldactone. Patient tends to be noncompliant had to be firm with him regarding diuresis. S/p albumin Mechanical fall T7 vertebral body compression Fell backwards as he complains of progressive weakness. Denies hitting his head. No loss of consciousness. CT thoracolumbar spine reviewed. Moderate central compression of T7 likely chronic. NSGY recommend a trial with a TLSO brace when out of bed for > 15 minutes. lidocaine patch Hypertension Aldactone and diltiazem. Bilateral leg pain Recently treated for bilateral cellulitis with 10-day course of antibiotics per X-ray tib-fib and pelvis nonacute. Opiate dependence On Subutex. Bilateral lower extremity venous stasis with some cellulitis Left medial leg partial-thickness ulcerations Right plantar foot ulcer Podiatry following Cont diuresis TEDDY wrapping and elevation Resolved acute medical issues Discharge Planning Medically Stable for Discharge Date: 10/24 Patient requires continued hospitalization due to: Looks to be edema, venous stasis ulcerations Discharge Location: home Quality Measures DVT Prophylaxis: lovenox Tavera Catheter: absent Code Status full Primary Contact Information Subjective Patient is wanting to be discharged to [facility], altho he reports that he feels worse then his basline. Objective BP 125/70 Pulse 93 Temp 98.2 F (36.8 C) (Axillary) Resp 18 Ht 6' Wt (!) 140.8 kg (310 lb 6.4 oz) SpO2 90% BMI 42.10 kg/m Physical Examination General Appearance: alert; acute on chronically ill appearing; in mild acute distress HEENT: Head- normocephalic; Eyes- EOMI, sclera anicteric; Throat- mucous membranes moist Cardiovascular: regular rate and rhythm; normal S1, S2; no murmurs, rubs, clicks or gallops; peripheral edema 4+ Respiratory: Wheezing much improved bilaterally, fine bibasilar crackles Abdomen: soft, non-tender, non-distended Neurological: oriented x 3; normal speech; no focal findings or movement disorder noted Musculoskeletal: no significant deformity or tenderness to palpation Skin: Venous stasis ulcerations left leg with some skin breakdown Psych: normal mood and affect [facility] [place] Assessment and Plan Carmen Gilman is a 59 y.o. adult patient of Ani Worley CNP with history of of COPD, diabetes mellitus, hypertension, hyperlipidemia, opiate dependence, anxiety disorder and arthritis presents with complaints of shortness of breath associated with some dry cough and had a mechanical fall today. Acute on chronic hypoxic respiratory failure Acute COPD exacerbation Still requiring 2-3 L , he stated he has home O2 for as needed use Respiratory failure secondary to COPD exacerbation and some amount of hypervolemia as well COVID and influenza negative. MRSA probe negative. CTPA negative for pulm embolism although suboptimal opacification. Completed Po prednisone/ azithromycin, bronchodilators. Symbicort changed to Dulera. Incentive spirometer. Liver cirrhosis Portal hypertension Esophageal varices Hepatitis C Chronic thrombocytopenia CT abdomen pelvis shows cirrhotic liver morphology with stigmata of portal venous hypertension. No acute pathology. Continue Aldactone and Lasix. Has no extremity edema likely due to cirrhosis. Echo 05/31/2023 reviewed-EF 65 to 70%, diastolic function normal, no significant valve disease. RVSP 49. Compression stockings bilateral lower extremities. Increase IV Lasix to 40mg TID and continue Aldactone. Continue for at least on the 1-2 more days. Patient tends to be noncompliant had to be firm with him regarding diuresis. Add albumin. Repeat CMP tomorrow. Mechanical fall T7 vertebral body compression Fell backwards as he complains of progressive weakness. Denies hitting his head. No loss of consciousness. CT thoracolumbar spine reviewed. Moderate central compression of T7 likely chronic. NSGY recommend a trial with a TLSO brace when out of bed for > 15 minutes. Added lidocaine patch Hypertension Aldactone and diltiazem. Bilateral leg pain Recently treated for bilateral cellulitis with 10-day course of antibiotics per X-ray tib-fib and pelvis nonacute. Opiate dependence On Subutex. Bilateral lower extremity venous stasis with some cellulitis Left medial leg partial-thickness ulcerations Right plantar foot ulcer Podiatry following Cont diuresis TEDDY wrapping and elevation Resolved acute medical issues Discharge Planning Medically Stable for Discharge Date: 10/24 Patient requires continued hospitalization due to: Looks to be edema, venous stasis ulcerations Discharge Location: home Quality Measures DVT Prophylaxis: lovenox Tavera Catheter: absent Code Status full Primary Contact Information Subjective Reports his leg swelling has improved. Able to feel his legs now. Denies chest pain. Objective BP (!) 149/74 (BP Location: Left arm, Patient Position: Lying) Pulse 91 Temp 98.2 F (36.8 C) (Axillary) Resp 18 Ht 6' Wt (!) 151 kg (333 lb) SpO2 95% BMI 45.16 kg/m Physical Examination General Appearance: alert; acute on chronically ill appearing; in mild acute distress HEENT: Head- normocephalic; Eyes- EOMI, sclera anicteric; Throat- mucous membranes moist Cardiovascular: regular rate and rhythm; normal S1, S2; no murmurs, rubs, clicks or gallops; peripheral edema 4+ Respiratory: Wheezing much improved bilaterally, fine bibasilar crackles Abdomen: soft, non-tender, non-distended Neurological: oriented x 3; normal speech; no focal findings or movement disorder noted Musculoskeletal: no significant deformity or tenderness to palpation Skin: Venous stasis ulcerations left leg with some skin breakdown Psych: normal mood and affect Spiritual Care Progress Note Completed by: Vinita Mitchell Person(s) Present During this Visit: Healthcare Provider Time Spent in Direct Patient Care: 5 Narrative: 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 Received updates from medical staff. Pastoral Care team will remain available to support patient and family PRN. 10/22/24 1130 Visit Background Visit With Healthcare Provider Visit By Staff Security Agent Visit Progression Other (Please Specify) (Did not participate; clincial rounds) Visit Requested By Security Agent Initiated Visit Source Security Agent Initiated Visit Type IDT Rounds Visit Circumstances and Events Routine Visit Visit Length (minutes) 5 Patient's Response to Pastoral Care Other (see comment) (Did not participate; clincial rounds) Visit Planning PRN Spiritual Assessment Not assessed during visit Restorationist Assessment Not assessed during this visit Family assessment provided? Not assessed during this visit Signature: Vinita Mitchell MDiv Staff Security Agent [facility] On-Call Security Agent /Gu[place]o "On-Call Security Agent" She/Her/Hers Care Management Progress Note Date: 10/22/2024 Time: 10:24 AM Patient Name: Carmen Gilman Date of : 1965 Discharge Plan: Regulatory Documentation: Medicare IM Regulatory Documentation Status: Certified Plan A: Home Health Care Services Plan B: Home Patient Paper Copy: Patient received paper copy Discharging Transportation Plan: Discharge Plan Status: pend medical readiness Assessment and Background Information: Plan is home w/ HHC and pt voices no further questions/concerns/needs. Pt voices no further needs for discharge. CM to follow. Nutrition Care Initial Assessment Reason for visit: Dietitian Screen: Length of Stay Nutrition Diagnosis: Altered nutrition-related lab values related to endocrine dysfunction as evidenced by glucose elevated. Nutrition Intervention/Prescription: Modify Diet Diet: recommend 2gm Na+. Consider CHO restriction (pt says he is NOT diabetic). Nutrition Goals: Tolerate diet with PO intakes >75% most meals x next 6 days Start Date:10/22/2024 Expected End Date:10/28/2024 Nutrition Education: No needs at this time Assessment: Pertinent clinical information: Acute hypoxic respiratory failure Acute COPD exacerbation S/p fall Liver cirrhosis Portal hypertension Esophageal varices Hepatitis C Chronic thrombocytopenia Past Medical History: Diagnosis Date Anxiety Arrhythmia Arthritis Asthma COPD (chronic obstructive pulmonary disease) (HCC) Diabetes (HCC) Hypertension Opioid dependence (HCC) Secondary adrenal insufficiency 04/30/2022 left AMA 04/30/22 without treatment Past Surgical History: Procedure Laterality Date APPENDECTOMY ARTHROPLASTY KNEE TOTAL ROBOTIC ASSISTED Right 01/08/2020 Procedure: Right Total Knee Replacement Robotic; Surgeon: Sofía Dukes MD; Location: Main OR; Service: Ortho-Robotics DEBRIDEMENT WITH WOUND CLOSURE POSS SKIN GRAFT LOWER EXTR Right 06/03/2023 Procedure: RIGHT LATERAL LEG Debridement with VERSAJET; Surgeon: ALEXEY Radford DPM; Location: Main OR; Service: Podiatry FOOT SURGERY Left MANDIBLE FRACTURE SURGERY ORTHOPEDIC SURGERY Right knee SKIN GRAFT SPLIT THICKNESS LOWER EXTREMITY Right 08/05/2023 Procedure: RIGHT LOWER LEG SPLIT THICKNESS SKIN GRAFT; Surgeon: Cecilia Gonzales DPM; Location: Main OR; Service: Podiatry THORACIC DUCT LIGATION 01/15/2017 THORACIC DUCT LIGATION WOUND VAC Right 06/03/2023 Procedure: APPLICATION WOUND VAC; Surgeon: ALEXEY Radford DPM; Location: Main OR; Service: Podiatry Height: 6' Current weight: (!) 151 kg (333 lb) BMI Body mass index is 45.16 kg/m . Weight hx: Significant wt gain recently per records. Pt states [employer] gained a lot of wt (fluid) and that a gallon of fluid was removed here in the hospital. Wt Readings from Last 10 Encounters: 10/20/24 (!) 151 kg (333 lb) 10/16/24 117.9 kg (260 lb) 07/02/24 117.9 kg (260 lb) 10/08/23 111.7 kg (246 lb 4.1 oz) 09/19/23 117.9 kg (260 lb) 09/18/23 123 kg (271 lb 1.6 oz) 07/29/23 108.9 kg (240 lb) 07/01/23 110.2 kg (243 lb) 06/10/23 110.4 kg (243 lb 6.2 oz) 05/30/23 108.9 kg (240 lb) PT WEIGHT Weight 05/17/2023 228 lb 230 lb 05/24/2023 230 lb 3.2 oz 05/30/2023 240 lb 05/31/2023 250 lb 10.6 oz 06/02/2023 247 lb 9.2 oz 06/03/2023 238 lb 15.7 oz 06/06/2023 238 lb 1.6 oz 06/07/2023 224 lb 13.9 oz 06/08/2023 247 lb 2.2 oz 06/10/2023 243 lb 6.2 oz 07/01/2023 243 lb 07/29/2023 240 lb 09/18/2023 271 lb 1.6 oz 09/19/2023 260 lb 10/01/2023 250 lb 10/08/2023 246 lb 4.1 oz 07/02/2024 260 lb 10/17/2024 330 lb (H) 10/18/2024 333 lb 12.8 oz (H) 10/19/2024 333 lb 14.4 oz (H) 10/20/2024 333 lb (H) Current diet order: regular Recent intake: 75-100% Current intake likely meets estimated needs. Nutrition Related Allergies/Intolerances: No Nutrition Related Allergies noted Cultural or Restorationist Dietary Needs :No Cultural or Restorationist Dietary needs noted Patient/family comments: Pt states he is NOT diabetic. Good intakes and appetite here and [employer]. Difficulty Chewing or Swallowing: No Fluid Status (edema): non-pitting, +2 Skin Integrity: vasculitic ulcer L pre-tibial GI Function: LBM: 3 Physical Appearance: No signs and symptoms of malnutrition noted Labs: Recent Labs 10/22/24 0434 NA 134* K 4.4 BICARB 34* CL 92* GLUCOSE 121* BUN 21 CREATININE 0.72 MG 2.0 Lab Results Component Value Date HGBA1C 6.2 (H) 10/17/2024 Home Medications Reviewed: Yes Nutrient Depleting Medications: [employer]: lasix, protonix, prednisone Scheduled Meds: ammonium lactate Topical Daily aspirin 81 mg Oral QAM buprenorphine HCL 4 mg Sublingual Daily buprenorphine HCL 8 mg Sublingual BID cholecalciferol (vitamin D3) 50,000 Units Oral Weekly diltiazem 240 mg Oral Daily docusate sodium 100 mg Oral BID enoxaparin (LOVENOX) injection 40 mg Subcutaneous BID furosemide 40 mg Intravenous BID gabapentin 600 mg Oral 4x daily lactulose 20 g Oral BID lidocaine 1 patch Transdermal Daily melatonin 10 mg Oral Nightly mometasone-formoterol 2 puff Inhalation BID nicotine 1 patch Transdermal Daily pantoprazole 20 mg Oral Daily spironolactone 50 mg Oral Daily traZODone 50 mg Oral Nightly Continuous Infusions: Estimated Energy Needs 2350kcals (22kcals/kg). adjbw Total Protein Estimated Needs 107gms (1gm/kg). adjbw Jalyn Mercer RD Images from the original note were not included. Podiatry Inpatient Progress Note 10/22/2024 ALEXEY Radford DPM [facility] Patient: Carmen Gilman Date of : 1965 (59 y.o.) PCP: Ani Worley, ENVIRONMENTAL EMERGENCIES PLANNER ASSESSMENT Bilateral lower extremity venous stasis with some cellulitis Left medial leg partial-thickness ulcerations Right plantar foot ulcer concerning for abscess Right midfoot collapse Diabetes mellitus Poor self-care PLAN: Patient was seen and evaluated Discussed all clinical and radiographic findings CRP normal, ESR 49. WBC 4.05. Hemoglobin A1c 6.2 Wound culture obtained of left leg, growing corynebacterium species, light growth right foot MRI: Patient was unable to complete the entirety of the study. Soft tissue ulceration over the plantar aspect of the medial cuneiform without evidence of underlying osteomyelitis or abscess noted ABIs triphasic throughout with no evidence of small vessel disease at the transmetatarsal level of either foot Elevate legs as much as possible to decrease swelling No immediate podiatric surgical plans. Continue wound care and leg elevation, continue treatment of underlying conditions. Podiatry will sign off Inpatient recommendations: Dressings as follows: Cleanse both legs with chlorhexadine brush. Apply ammonium lactate to both legs. Apply saline soaked 2x2 gauze to left leg ulcers and right foot ulcer. Secure with kerlix and TEDDY from base of toes to below knees Mobility/weightbearing: No restrictions OT/PT: Following Case management: Following Disposition/discharge: Okay to discharge per podiatry. Patient will need follow-up appointment with Dr. Gonzales and wound care Discharge instructions from AVS: Pending SUBJECTIVE: Patient was seen in his room, sleeping. Patient kept his dressings on all night.. No new pedal complaints. OBJECTIVE: Podiatric Exam Vascular: DP and PT pulses are palpable 2 of 4. Capillary refill time is less than 3 seconds to distal digits. Skin temperature is warm to warm from proximal tibial tuberosity to distal digit. Significant bilateral lower extremity edema and pedal edema - improving Neurological: Gross sensation is diminished. Protective sensation is diminished. Babinski's is normal. Dermatologic: Bilateral lower extremities with dry xerotic skin and vascular discoloration. Left medial leg with superficial to partial-thickness venous stasis ulcer surrounded by crusted tissue. No ulceration present to right lower extremity. Right medial plantar foot with preulcerative callus/crusted ulceration. Onychomycosis Musculoskeletal: Compartments soft and compressible. No calf pain or fullness. Muscle strength 5/5. Right midfoot collapse without rocker-bottom morphology 10/22/2024 7:27 am- This RN will continue to follow for discharge planning. Clarification needed to see if pt has wound care needs for home health or if they will be using the wound care clinic. 10:27 am- Updated home health referral to reflect wound care needs per inpatient cm. Name of [facility] agency: Pending / Accepted (if [facility], include region) Accepted- [facility] (orders) created for the following services: [or waiting for ____ (i.e wound care)] Yes- SN,PT,OT,RESIDENTIAL CHILD CARE COUNSELOR Verify demographics (residential address) [address] [place] [address] What is the primary number to reach you? [phone] Following physician will be: (list first name/last name) Ani Worley CNP Do you have a caregiver and/or teachable caregiver (list relationship, name & phone #)? Lives alone with support from family members Estimated [place] Date ([place]): [place]19 [facility] [place] Assessment and Plan Carmen Gilman is a 59 y.o. adult patient of Ani Worley CNP with history of of COPD, diabetes mellitus, hypertension, hyperlipidemia, opiate dependence, anxiety disorder and arthritis presents with complaints of shortness of breath associated with some dry cough and had a mechanical fall today. Acute on chronic hypoxic respiratory failure Acute COPD exacerbation Still requiring 2-3 L , he stated he has home O2 for as needed use Respiratory failure secondary to COPD exacerbation and some amount of hypervolemia as well COVID and influenza negative. MRSA probe negative. CTPA negative for pulm embolism although suboptimal opacification. Completed Po prednisone/ azithromycin, bronchodilators. Symbicort changed to Dulera. Incentive spirometer. Liver cirrhosis Portal hypertension Esophageal varices Hepatitis C Chronic thrombocytopenia CT abdomen pelvis shows cirrhotic liver morphology with stigmata of portal venous hypertension. No acute pathology. Continue Aldactone and Lasix. Has no extremity edema likely due to cirrhosis. Echo 05/31/2023 reviewed-EF 65 to 70%, diastolic function normal, no significant valve disease. RVSP 49. Compression stockings bilateral lower extremities. on IV diuresis he is -3400 for the stay, plan to continue 1 or 2 more days Mechanical fall T7 vertebral body compression Fell backwards as he complains of progressive weakness. Denies hitting his head. No loss of consciousness. CT thoracolumbar spine reviewed. Moderate central compression of T7 likely chronic. NSGY recommend a trial with a TLSO brace when out of bed for > 15 minutes. Added lidocaine patch Hypertension Aldactone and diltiazem. Bilateral leg pain Recently treated for bilateral cellulitis with 10-day course of antibiotics per X-ray tib-fib and pelvis nonacute. Opiate dependence On Subutex. Bilateral lower extremity venous stasis with some cellulitis Left medial leg partial-thickness ulcerations Right plantar foot ulcer Podiatry following Cont diuresis TEDDY wrapping and elevation Resolved acute medical issues Discharge Planning Medically Stable for Discharge Date: 10/23 Patient requires continued hospitalization due to: hypoxia Discharge Location: home Quality Measures DVT Prophylaxis: lovenox Tavera Catheter: absent Code Status full Primary Contact Information Subjective Continues to improve Denies chest pain had BM x2 Objective BP 125/74 Pulse 84 Temp 97.8 F (36.6 C) (Oral) Resp 16 Ht 6' Wt (!) 151 kg (333 lb) SpO2 95% BMI 45.16 kg/m Physical Examination General Appearance: alert; acute on chronically ill appearing; in mild acute distress HEENT: Head- normocephalic; Eyes- EOMI, sclera anicteric; Throat- mucous membranes moist Cardiovascular: regular rate and rhythm; normal S1, S2; no murmurs, rubs, clicks or gallops; peripheral edema absent Respiratory: Wheezing much improved bilaterally, fine bibasilar crackles Abdomen: soft, non-tender, non-distended Neurological: oriented x 3; normal speech; no focal findings or movement disorder noted Musculoskeletal: no significant deformity or tenderness to palpation Skin: normal coloration Psych: normal mood and affect Images from the original note were not included. Podiatry Inpatient Progress Note 10/21/2024 ALEXEY Radford DPM [facility] Patient: Carmen Gilman Date of : 1965 (59 y.o.) PCP: Ani Worley, ENVIRONMENTAL EMERGENCIES PLANNER ASSESSMENT Bilateral lower extremity venous stasis with some cellulitis Left medial leg partial-thickness ulcerations Right plantar foot ulcer concerning for abscess Right midfoot collapse Diabetes mellitus Poor self-care PLAN: Patient was seen and evaluated Discussed all clinical and radiographic findings CRP normal, ESR 49. WBC 4.05. Hemoglobin A1c 6.2 Wound culture obtained of left leg, growing corynebacterium species, light growth right foot MRI: Patient was unable to complete the entirety of the study. Soft tissue ulceration over the plantar aspect of the medial cuneiform without evidence of underlying osteomyelitis or abscess noted ABIs triphasic throughout with no evidence of small vessel disease at the transmetatarsal level of either foot Elevate legs as much as possible to decrease swelling No immediate podiatric surgical plans. Continue wound care and leg elevation, continue treatment of underlying conditions. Podiatry will continue to follow Inpatient recommendations: Dressings as follows: Cleanse both legs with chlorhexadine brush. Apply ammonium lactate to both legs. Apply saline soaked 2x2 gauze to left leg ulcers and right foot ulcer. Secure with kerlix and TEDDY from base of toes to below knees Mobility/weightbearing: No restrictions OT/PT: Following Case management: Following Disposition/discharge: Okay to discharge per podiatry Discharge instructions from AVS: Pending SUBJECTIVE: Patient was seen in his room, sleeping. Patient fairly disgruntled he removed his dressings last night. No new pedal complaints. OBJECTIVE: Podiatric Exam Vascular: DP and PT pulses are palpable 2 of 4. Capillary refill time is less than 3 seconds to distal digits. Skin temperature is warm to warm from proximal tibial tuberosity to distal digit. Significant bilateral lower extremity edema and pedal edema - improving Neurological: Gross sensation is diminished. Protective sensation is diminished. Babinski's is normal. Dermatologic: Bilateral lower extremities with dry xerotic skin and vascular discoloration. Left medial leg with superficial to partial-thickness venous stasis ulcer surrounded by crusted tissue. No ulceration present to right lower extremity. Right medial plantar foot with preulcerative callus/crusted ulceration. Onychomycosis Musculoskeletal: Compartments soft and compressible. No calf pain or fullness. Muscle strength 5/5. Right midfoot collapse without rocker-bottom morphology [facility] [place] Assessment and Plan Carmen Gilman is a 59 y.o. adult patient of Ani Worley CNP with history of of COPD, diabetes mellitus, hypertension, hyperlipidemia, opiate dependence, anxiety disorder and arthritis presents with complaints of shortness of breath associated with some dry cough and had a mechanical fall today. Acute hypoxic respiratory failure Acute COPD exacerbation Still requiring 3 L Respiratory failure secondary to COPD exacerbation and some amount of hypervolemia as well COVID and influenza negative. MRSA probe negative. CTPA negative for pulm embolism although suboptimal opacification. Po prednisone/ azithromycin, bronchodilators. Symbicort changed to Dulera. Incentive spirometer. Mechanical fall T7 vertebral body compression Fell backwards as he complains of progressive weakness. Denies hitting his head. No loss of consciousness. CT thoracolumbar spine reviewed. Moderate central compression of T7 likely chronic. NSGY recommend a trial with a TLSO brace when out of bed for > 15 minutes. Added lidocaine patch Liver cirrhosis Portal hypertension Esophageal varices Hepatitis C Chronic thrombocytopenia CT abdomen pelvis shows cirrhotic liver morphology with stigmata of portal venous hypertension. No acute pathology. Continue Aldactone and Lasix. Has no extremity edema likely due to cirrhosis. Echo 05/31/2023 reviewed-EF 65 to 70%, diastolic function normal, no significant valve disease. RVSP 49. Compression stockings bilateral lower extremities. on IV diuresis he is -2200 for the stay Hypertension Aldactone and diltiazem. Bilateral leg pain Recently treated for bilateral cellulitis with 10-day course of antibiotics per X-ray tib-fib and pelvis nonacute. Opiate dependence On Subutex. Bilateral lower extremity venous stasis with some cellulitis Left medial leg partial-thickness ulcerations Right plantar foot ulcer Podiatry following Cont diuresis TEDDY wrapping and elevation Resolved acute medical issues Discharge Planning Medically Stable for Discharge Date: 10/18 Patient requires continued hospitalization due to: hypoxia Discharge Location: home Quality Measures DVT Prophylaxis: lovenox Tavera Catheter: absent Code Status full Primary Contact Information Subjective Continues to improve Denies chest pain had BM x2 Objective BP 121/69 (BP Location: Right arm, Patient Position: Lying) Pulse 87 Temp 97.9 F (36.6 C) (Oral) Resp 15 Wt (!) 151.5 kg (333 lb 14.4 oz) SpO2 94% BMI 45.28 kg/m Physical Examination General Appearance: alert; acute on chronically ill appearing; in mild acute distress HEENT: Head- normocephalic; Eyes- EOMI, sclera anicteric; Throat- mucous membranes moist Cardiovascular: regular rate and rhythm; normal S1, S2; no murmurs, rubs, clicks or gallops; peripheral edema absent Respiratory: Wheezing much improved bilaterally, fine bibasilar crackles Abdomen: soft, non-tender, non-distended Neurological: oriented x 3; normal speech; no focal findings or movement disorder noted Musculoskeletal: no significant deformity or tenderness to palpation Skin: normal coloration Psych: normal mood and affect Images from the original note were not included. Podiatry Inpatient Progress Note 10/20/2024 ALEXEY Radford, DPM [facility] Patient: Carmen Gilman Date of : 1965 (59 y.o.) PCP: Ani Worley, ENVIRONMENTAL EMERGENCIES PLANNER ASSESSMENT Bilateral lower extremity venous stasis with some cellulitis Left medial leg partial-thickness ulcerations Right plantar foot ulcer concerning for abscess Right midfoot collapse Diabetes mellitus Poor self-care PLAN: Patient was seen and evaluated Discussed all clinical and radiographic findings CRP normal, ESR 49. WBC 4.05. Hemoglobin A1c 6.2 Wound culture obtained of left leg, growing corynebacterium species, light growth right foot MRI: Patient was unable to complete the entirety of the study. Soft tissue ulceration over the plantar aspect of the medial cuneiform without evidence of underlying osteomyelitis or abscess noted ABIs triphasic throughout with no evidence of small vessel disease at the transmetatarsal level of either foot Elevate legs as much as possible to decrease swelling No immediate podiatric surgical plans. Continue wound care and leg elevation, continue treatment of underlying conditions. Podiatry will continue to follow Inpatient recommendations: Dressings as follows: Cleanse both legs with chlorhexadine brush. Apply ammonium lactate to both legs. Apply saline soaked 2x2 gauze to left leg ulcers and right foot ulcer. Secure with kerlix and TEDDY from base of toes to below knees Mobility/weightbearing: No restrictions OT/PT: Following Case management: Following Disposition/discharge: Okay to discharge per podiatry Discharge instructions from AVS: Pending SUBJECTIVE: Patient was seen in his room, sleeping. Patient fairly disgruntled he removed his dressings last night. No new pedal complaints. OBJECTIVE: Podiatric Exam Vascular: DP and PT pulses are palpable 2 of 4. Capillary refill time is less than 3 seconds to distal digits. Skin temperature is warm to warm from proximal tibial tuberosity to distal digit. Significant bilateral lower extremity edema and pedal edema - improving Neurological: Gross sensation is diminished. Protective sensation is diminished. Babinski's is normal. Dermatologic: Bilateral lower extremities with dry xerotic skin and vascular discoloration. Left medial leg with superficial to partial-thickness venous stasis ulcer surrounded by crusted tissue. No ulceration present to right lower extremity. Right medial plantar foot with preulcerative callus/crusted ulceration. Onychomycosis Musculoskeletal: Compartments soft and compressible. No calf pain or fullness. Muscle strength 5/5. Right midfoot collapse without rocker-bottom morphology [facility] [place] Assessment and Plan Carmen Gilman is a 59 y.o. adult patient of Ani Worley CNP with history of of COPD, diabetes mellitus, hypertension, hyperlipidemia, opiate dependence, anxiety disorder and arthritis presents with complaints of shortness of breath associated with some dry cough and had a mechanical fall today. Acute hypoxic respiratory failure Acute COPD exacerbation Still requiring 3 L Respiratory failure secondary to COPD exacerbation and some amount of hypervolemia as well COVID and influenza negative. MRSA probe negative. CTPA negative for pulm embolism although suboptimal opacification. Po prednisone/ azithromycin, on IV diuresis bronchodilators. Symbicort changed to Dulera. Incentive spirometer. Mechanical fall T7 vertebral body compression Fell backwards as he complains of progressive weakness. Denies hitting his head. No loss of consciousness. CT thoracolumbar spine reviewed. Moderate central compression of T7 likely chronic. NSGY recommend a trial with a TLSO brace when out of bed for > 15 minutes. Added lidocaine patch Liver cirrhosis Portal hypertension Esophageal varices Hepatitis C Chronic thrombocytopenia CT abdomen pelvis shows cirrhotic liver morphology with stigmata of portal venous hypertension. No acute pathology. Continue Aldactone and Lasix. Has no extremity edema likely due to cirrhosis. Echo 05/31/2023 reviewed-EF 65 to 70%, diastolic function normal, no significant valve disease. RVSP 49. Compression stockings bilateral lower extremities. Hypertension Aldactone and diltiazem. Bilateral leg pain Recently treated for bilateral cellulitis with 10-day course of antibiotics per X-ray tib-fib and pelvis nonacute. Opiate dependence On Subutex. Bilateral lower extremity venous stasis with some cellulitis Left medial leg partial-thickness ulcerations Right plantar foot ulcer Podiatry following Resolved acute medical issues Discharge Planning Medically Stable for Discharge Date: 10/18 Patient requires continued hospitalization due to: hypoxia Discharge Location: home Quality Measures DVT Prophylaxis: lovenox Tavera Catheter: absent Code Status full Primary Contact Information Subjective Continues to improve Denies chest pain Still no BM Objective BP 129/74 Pulse 90 Temp 97.7 F (36.5 C) (Oral) Resp 18 Wt (!) 151.5 kg (333 lb 14.4 oz) SpO2 (!) 88% Comment: found with 3L NC off BMI 45.28 kg/m Physical Examination General Appearance: alert; acute on chronically ill appearing; in mild acute distress HEENT: Head- normocephalic; Eyes- EOMI, sclera anicteric; Throat- mucous membranes moist Cardiovascular: regular rate and rhythm; normal S1, S2; no murmurs, rubs, clicks or gallops; peripheral edema absent Respiratory: Wheezing much improved bilaterally, fine bibasilar crackles Abdomen: soft, non-tender, non-distended Neurological: oriented x 3; normal speech; no focal findings or movement disorder noted Musculoskeletal: no significant deformity or tenderness to palpation Skin: normal coloration Psych: normal mood and affect Care Management Progress Note Date: 10/19/2024 Time: 12:29 PM Patient Name: Carmen Gilman Date of : 1965 Discharge Plan: Plan A: Home Health Care Services Plan B: Home Discharging Transportation Plan: Discharge Plan Status: pend medical readiness Assessment and Background Information: Per Ana Luisa, podiatry, pt will get debrided this afternoon by Dr. Gonzales and then can discharge over the weekend. Per Dr. Kerns, pt likely ready for dc on Tuesday. [facility] has been set up. Stella, [place], aware to send waiver referral. CM to follow. Spiritual Care Progress Note Completed by: Vinita Mitchell Person(s) Present During this Visit: Patient Time Spent in Direct Patient Care: 15 Narrative: Follow-up visit per pt request. Carmen shared a little more about his health and requested a prayer for healing. He cites a strong Caodaism gerri and prefers to pray in Willis' name. This drapery rod assembler provided emotional support and prayer as requested. Visit was brief as Carmen was expecting visitors. This drapery rod assembler provided information about Pastoral Care services and how to contact a drapery rod assembler. Pastoral Care team will remain available to support patient and family PRN. 10/19/24 0846 Visit Background Visit With Patient Visit By Staff Security Agent Visit Progression Follow-Up Visit Requested By Security Agent Initiated Visit Source Security Agent Initiated Visit Type Inpatient;Patient Request Visit Circumstances and Events Routine Visit Visit Length (minutes) 15 Patient's Response to Pastoral Care Appeared to be well-engaged;Expressed Gratitude for Visit Visit Planning PRN;Pt aware to contact Security Agent as needed Spiritual Assessment Assessed during this visit Restorationist Assessment Assessed during this visit Family assessment provided? Not assessed during this visit Patient Spiritual Needs Assessment Sources of Connection Other (see comment) (Family) Belief Practices Prayer;Experience of Amna/Divine Favor Image of the Divine Personal / Present;Guide Role of the Divine in Pt's Illness Divine is Source of Support Spiritual Wellness Activies and Resources Prayer;Restorationist/Philosophic Meaning-Making Spiritual Issues / Opportunities Seek Healing/Wholeness Expressed / Stated Feelings Hopeful Attitude Toward Illness Fighting Spirit Coping Mechanisms Family Support;Trust in God/Higher Power;Prayer/Spiritual Practices Spiritual Diagnosis Spiritual Support and Connection Facilitated Interventions Active Listening;Explored thoughts/feelings associated with current hospitalization;Prayer;Patient's Experience Spiritual/Emotional Outcomes Appreciative;Gratitude Spiritual Plan of Care Continue Healing Process;Receive Spiritual Support;Receive Prayer Patient Restorationist Needs Assessment Restorationist Connection Not Discussed Restorationist Home Caodaism Restorationist Resources Prayer;Hope/Trust in God;Restorationist Gerri Restorationist Rituals Prayer Expressed Outcome Expressed Gratitude Signature: Vinita Mitchell MDiv Staff Security Agent [facility] On-Call Security Agent /Guicho "On-Call Security Agent" She/Her/Hers 10/19/2024 7:26 am- This RN will continue to follow for discharge planning. Name of [facility] agency: Pending / Accepted (if [facility], include region) Accepted- [place] (orders) created for the following services: [or waiting for ____ (i.e wound care)] Yes- SN,PT,OT,RESIDENTIAL CHILD CARE COUNSELOR Verify demographics (residential address) [address] [place] [id number] What is the primary number to reach you? [phone] Following physician will be: (list first name/last name) Ani Worley CNP Do you have a caregiver and/or teachable caregiver (list relationship, name & phone #)? Lives alone with support from family members Estimated Discharge Date (NATI): 10/19 Images from the original note were not included. Podiatry Inpatient Progress Note 10/18/2024 Quyen Franco CNP [facility] Patient: Carmen Gilman Date of : 1965 (59 y.o.) PCP: Ani Worley CNP ASSESSMENT Bilateral lower extremity venous stasis with some cellulitis Left medial leg partial-thickness ulcerations Right plantar foot ulcer concerning for abscess Right midfoot collapse Diabetes mellitus Poor self-care PLAN: Patient was seen and evaluated Discussed all clinical and radiographic findings CRP normal, ESR 49. WBC 4.05. Hemoglobin A1c 6.2 Wound culture obtained of left leg, pending Right foot MRI: Patient was unable to complete the entirety of the study. Soft tissue ulceration over the plantar aspect of the medial cuneiform without evidence of underlying osteomyelitis or abscess noted ABIs triphasic throughout with no evidence of small vessel disease at the transmetatarsal level of either foot Elevate legs as much as possible to decrease swelling No immediate podiatric surgical plans. Continue wound care and leg elevation, continue treatment of underlying conditions. Plan for bedside debridement of left medial leg ulcerations tomorrow 10/19 Inpatient recommendations: Dressings as follows: Cleanse both legs with chlorhexadine brush. Apply ammonium lactate to both legs. Apply saline soaked 2x2 gauze to left leg ulcers and right foot ulcer. Secure with kerlix and TEDDY from base of toes to below knees Mobility/weightbearing: No restrictions OT/PT: Following Case management: Following Disposition/discharge: Pending. Patient would like to discharge by the Discharge instructions from AVS: Pending SUBJECTIVE: Patient was seen in his room, intermittently lying in bed and sitting on the edge of the bed. Does have a productive cough. No new pedal complaints. OBJECTIVE: Podiatric Exam Vascular: DP and PT pulses are palpable 2 of 4. Capillary refill time is less than 3 seconds to distal digits. Skin temperature is warm to warm from proximal tibial tuberosity to distal digit. Significant bilateral lower extremity edema and pedal edema - improving Neurological: Gross sensation is diminished. Protective sensation is diminished. Babinski's is normal. Dermatologic: Bilateral lower extremities with dry xerotic skin and vascular discoloration. Left medial leg with superficial to partial-thickness venous stasis ulcer surrounded by crusted tissue. No ulceration present to right lower extremity. Right medial plantar foot with preulcerative callus/crusted ulceration. Onychomycosis Musculoskeletal: Compartments soft and compressible. No calf pain or fullness. Muscle strength 5/5. Right midfoot collapse without rocker-bottom morphology Spiritual Care Progress Note Completed by: Vinita Mitchell Person(s) Present During this Visit: Patient Not Available Time Spent in Direct Patient Care: 5 Narrative: Attempted follow-up visit per pt request. Carmen explained that he wanted to get some rest and asked this drapery rod assembler to try again tomorrow. Visit rescheduled for patient and/or family convenience and pastoral care availability.Pastoral Care team will remain available to support patient and family PRN. 10/18/24 1346 Visit Background Visit With Patient Not Available Visit By Staff Security Agent Visit Progression Attempt Visit Requested By Security Agent Initiated Visit Source Security Agent Initiated Visit Type Inpatient;Rounding Visit Circumstances and Events Routine Visit Visit Length (minutes) 5 Patient's Response to Pastoral Care Timing of Visit Not Optimal. Visit Rescheduled Visit Planning PRN Spiritual Assessment Not assessed during visit Restorationist Assessment Not assessed during this visit Family assessment provided? Not assessed during this visit Signature: Vinita Mitchell MDiv Staff Security Agent [facility] On-Call Security Agent /Guicho "On-Call Security Agent" She/Her/Hers [facility] [place] Assessment and Plan Carmen Gilman is a 59 y.o. adult patient of Ani Worley CNP with history of of COPD, diabetes mellitus, hypertension, hyperlipidemia, opiate dependence, anxiety disorder and arthritis presents with complaints of shortness of breath associated with some dry cough and had a mechanical fall today. Acute hypoxic respiratory failure Acute COPD exacerbation Requiring 3 L Respiratory failure secondary to COPD exacerbation and some amount of hypervolemia as well COVID and influenza negative. MRSA probe negative. CTPA negative for pulm embolism although suboptimal opacification. Po prednisone/ azithromycin, Starting IV diuresis this afternoon 10/18/2024 bronchodilators. Symbicort changed to Dulera. Incentive spirometer. Mechanical fall T7 vertebral body compression Fell backwards as he complains of progressive weakness. Denies hitting his head. No loss of consciousness. CT thoracolumbar spine reviewed. Moderate central compression of T7 likely chronic. NSGY recommend a trial with a TLSO brace when out of bed for > 15 minutes. Added lidocaine patch Liver cirrhosis Portal hypertension Esophageal varices Hepatitis C Chronic thrombocytopenia CT abdomen pelvis shows cirrhotic liver morphology with stigmata of portal venous hypertension. No acute pathology. Continue Aldactone and Lasix. Has no extremity edema likely due to cirrhosis. Echo 05/31/2023 reviewed-EF 65 to 70%, diastolic function normal, no significant valve disease. RVSP 49. Compression stockings bilateral lower extremities. Hypertension Aldactone and diltiazem. Bilateral leg pain Recently treated for bilateral cellulitis with 10-day course of antibiotics per X-ray tib-fib and pelvis nonacute. Opiate dependence On Subutex. Resolved acute medical issues Discharge Planning Medically Stable for Discharge Date: 10/18 Patient requires continued hospitalization due to: hypoxia Discharge Location: home Quality Measures DVT Prophylaxis: lovenox Tavera Catheter: absent Code Status full Primary Contact Information Subjective Stated he is better, no cough Complained of back pain 01/29 No cough No chest pain Objective BP 130/73 Pulse 82 Temp 97.7 F (36.5 C) Resp (!) 20 Wt (!) 151.4 kg (333 lb 12.8 oz) SpO2 95% BMI 45.27 kg/m Physical Examination General Appearance: alert; acute on chronically ill appearing; in mild acute distress HEENT: Head- normocephalic; Eyes- EOMI, sclera anicteric; Throat- mucous membranes moist Cardiovascular: regular rate and rhythm; normal S1, S2; no murmurs, rubs, clicks or gallops; peripheral edema absent Respiratory: Wheezing much improved bilaterally, fine bibasilar crackles Abdomen: soft, non-tender, non-distended Neurological: oriented x 3; normal speech; no focal findings or movement disorder noted Musculoskeletal: no significant deformity or tenderness to palpation Skin: normal coloration Psych: normal mood and affect Spiritual Care Progress Note Completed by: Vinita Mitchell Person(s) Present During this Visit: Patient Not Available Time Spent in Direct Patient Care: 5 Narrative: 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 Received updates from medical staff. Pastoral Care team will remain available to support patient and family PRN. 10/18/24 1140 Visit Background Visit With Healthcare Provider Visit By Staff Security Agent Visit Progression Other (Please Specify) (Did not participate; clinical rounds) Visit Requested By Security Agent Initiated Visit Source Security Agent Initiated Visit Type IDT Rounds Visit Circumstances and Events Routine Visit Visit Length (minutes) 5 Patient's Response to Pastoral Care Other (see comment) (Did not participate; clinical rounds) Visit Planning PRN Spiritual Assessment Not assessed during visit Restorationist Assessment Not assessed during this visit Family assessment provided? Not assessed during this visit Signature: Vinita Mitchell MDiv Staff Security Agent [facility] On-Call Security Agent /Vocera "On-Call Security Agent" She/Her/Hers Spiritual Care Progress Note Completed by: Vinita Mitchell Person(s) Present During this Visit: Patient Time Spent in Direct Patient Care: 15 Narrative: This drapery rod assembler visited the pt., Carmen, while rounding. He is known to this drapery rod assembler from previous hospitalizations. Reintroduced self and role. Carmen shared that he is trying to improve his health for his family. He is thankful to God for the improvements he has made in his health. He asked this drapery rod assembler to visit this afternoon if possible. This drapery rod assembler provided empathetic listening. Pastoral Care to follow up. This drapery rod assembler provided information about Pastoral Care services and how to contact a drapery rod assembler. 10/18/24 1028 Visit Background Visit With Patient Visit By Staff Security Agent Visit Progression Introduction Visit Requested By Security Agent Initiated Visit Source Security Agent Initiated Visit Type Inpatient;Rounding Visit Circumstances and Events Routine Visit Visit Length (minutes) 15 Patient's Response to Pastoral Care Appeared to be well-engaged;Expressed Gratitude for Visit;Requested Follow-up Visit Visit Planning PRN;Pt aware to contact Security Agent as needed Spiritual Assessment Not assessed during visit Restorationist Assessment Not assessed during this visit Family assessment provided? Not assessed during this visit Signature: Vinita Mitchell MDiv Staff [facility] On-Call Security Agent /Vocera "On-Call Security Agent" She/Her/Hers [facility] [place] Assessment and Plan Carmen Gilman is a 59 y.o. adult patient of Ani Worley CNP with history of of COPD, diabetes mellitus, hypertension, hyperlipidemia, opiate dependence, anxiety disorder and arthritis presents with complaints of shortness of breath associated with some dry cough and had a mechanical fall today. Acute hypoxic respiratory failure Acute COPD exacerbation Requiring 3 L intermittently COVID and influenza negative. MRSA probe negative. Chest x-ray reviewed nonacute. CTPA negative for pulm embolism although suboptimal opacification. Po prednisone/ azithromycin, bronchodilators. Symbicort changed to Dulera. Incentive spirometer. Mechanical fall T7 vertebral body compression Fell backwards as he complains of progressive weakness. Denies hitting his head. No loss of consciousness. CT thoracolumbar spine reviewed. Moderate central compression of T7 likely chronic. NSGY recommend a trial with a TLSO brace. This is to be worn when he is out of bed for > 15 minutes. Adding lidocaine patch Liver cirrhosis Portal hypertension Esophageal varices Hepatitis C Chronic thrombocytopenia CT abdomen pelvis shows cirrhotic liver morphology with stigmata of portal venous hypertension. No acute pathology. Continue Aldactone and Lasix. Has no extremity edema likely due to cirrhosis. Echo 05/31/2023 reviewed-EF 65 to 70%, diastolic function normal, no significant valve disease. RVSP 49. Compression stockings bilateral lower extremities. Hypertension Aldactone Lasix and diltiazem. Bilateral leg pain Recently treated for bilateral cellulitis with 10-day course of antibiotics per X-ray tib-fib and pelvis nonacute. Opiate dependence On Subutex. Resolved acute medical issues Discharge Planning Medically Stable for Discharge Date: 10/18 Patient requires continued hospitalization due to: hypoxia Discharge Location: home Quality Measures DVT Prophylaxis: lovenox Tavera Catheter: absent Code Status full Primary Contact Information Subjective Breathing better Complained of back pain 01/29 No cough No chest pain Objective BP 116/67 Pulse 80 Temp 98.1 F (36.7 C) Resp (!) 20 Wt (!) 149.7 kg (330 lb) SpO2 92% BMI 44.76 kg/m Physical Examination General Appearance: alert; acute on chronically ill appearing; in mild acute distress HEENT: Head- normocephalic; Eyes- EOMI, sclera anicteric; Throat- mucous membranes moist Cardiovascular: regular rate and rhythm; normal S1, S2; no murmurs, rubs, clicks or gallops; peripheral edema absent Respiratory: Wheezing appreciated bilaterally nasal cannula Abdomen: soft, non-tender, non-distended Neurological: oriented x 3; normal speech; no focal findings or movement disorder noted Musculoskeletal: no significant deformity or tenderness to palpation Skin: normal coloration Psych: normal mood and affect NEUROSURGERY PROGRESS NOTE: Carmen Gilman 1965 [id number] Assessment/Plan: 59y male with multiple underlying medical conditions present to ER with COPD exacerbation and SOB. Workup revealed likely subacute T7 compression fracture. Subacute T7 compression fracture Thoracic MRI: Compression fracture at T7 appears to be likely subacute. There is bone marrow edema throughout the vertebral body and approximately 55% decreased vertebral body height. No significant retropulsion of bone fragments into the canal. There is some mild disc bulge at T6-7 mildly effacing the ventral aspect of the thecal sac without spinal cord compression.. No other compression fractures. No epidural hematoma. No spinal cord compression or abnormal signal in the thoracic spinal cord. - Exam stable - Thoracic XR with brace pending - Continue neuro checks - Continue pain control per primary - TLSO brace when OOB - Activity/therapy as tolerated with TLSO - Ok for diet from NS standpoint - No acute neurosurgical intervention indicated at this time - Recommend TLSO brace with follow up for repeat XR in 4 weeks. Subjective: Patient seen laying in bed, endorses continued lower middle back pain that is localized to back, does not radiate. Denies new numbness, tingling, weakness in extremities. Physical Exam: General: no apparent distress obese and deconditioned appearing HEENT: Head is normocephalic, atraumatic appearing. Eyes without discharge or scleral injection/icterus. External ears and nose without drainage. Skin: warm, dry MSK: BLE edema Neuro: Awake and alert, oriented. Gaze conjugate. Speech clear and appropriate. Lumbar Motor RLE 5/5 HF, KF, KE, PF, DF, EHL LLE 5/5 HF, KF, KE, PF, DF, EHL Sensation: intact and equal throughout to light touch Negative Ma, Negative Clonus. Vital Signs: Current: BP 116/67 Pulse 80 Temp 98.1 F (36.7 C) Resp (!) 20 Wt (!) 149.7 kg (330 lb) SpO2 92% BMI 44.76 kg/m Last 24 hours: Temp: [97.4 F (36.3 C)-98.1 F (36.7 C)] 98.1 F (36.7 C) Heart Rate: [77-83] 80 Resp: [20-22] 20 BP: (116-127)/(65-70) 116/67 Intake/Output Summary (Last 24 hours) at 10/17/2024 1620 Last data filed at 10/17/2024 1127 Gross per 24 hour Intake 1040 ml Output -- Net 1040 ml Labs: Lab Results Component Value Date NA 137 10/16/2024 K 4.4 10/16/2024 CL 97 (L) 10/16/2024 Lab Results Component Value Date WBC 4.31 (L) 10/17/2024 HGB 9.7 (L) 10/17/2024 HCT 32.7 (L) 10/17/2024 MCV 70.3 (L) 10/17/2024 PLT 111 (L) 10/17/2024 Lab Results Component Value Date INR 1.1 09/19/2023 INR 1.2 (H) 05/31/2023 INR 1.2 (H) 05/17/2023 PROTIME 14.6 (H) 09/19/2023 PROTIME 15.4 (H) 05/31/2023 PROTIME 15.3 (H) 05/17/2023 Imaging: Thoracic mri Compression fracture at the T7 level appears to be subacute. There is 55% decreased vertebral body height centrally. There is bone marrow edema with hyperintense signal on STIR throughout the vertebral body. The pedicles appear to be intact. There is no significant retropulsion of bone fragments into the spinal canal. There is some disc bulge at T6-7 mildly effacing the ventral aspect of the thecal sac without compression of the spinal cord. There is no epidural hematoma. Antonietta Meneses PA-C Spiritual Care Progress Note Completed by: Vinita Mitchell Person(s) Present During this Visit: Healthcare Provider Time Spent in Direct Patient Care: 5 Narrative: 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 Received updates from medical staff. Pastoral Care team will remain available to support patient and family PRN. 10/17/24 1137 Visit Background Visit With Healthcare Provider Visit By Staff Security Agent Visit Progression Other (Please Specify) (Did not participate; clinical rounds) Visit Requested By Security Agent Initiated Visit Source Security Agent Initiated Visit Type IDT Rounds Visit Circumstances and Events Routine Visit Visit Length (minutes) 5 Patient's Response to Pastoral Care Other (see comment) (Did not participate; clinical rounds) Visit Planning PRN Spiritual Assessment Not assessed during visit Restorationist Assessment Not assessed during this visit Family assessment provided? Not assessed during this visit Signature: Vinita Mitchell MDiv Staff Security Agent [facility] On-Call Security Agent /Sameerera "On-Call Security Agent" She/Her/Hers Trauma will sign off at this time. [facility] and [facility] DAILY PROGRESS NOTE MECHANISM: fall INJURIES: T7 fracture ASSESSMENT & PLAN/ACTIVE MEDICAL PROBLEMS: T7 VB compression fracture MRI with subacute T7 fracture - Pain control, therapies - neurosurgery consulted, recommending TLSO brace while OOB > 15 minutes - will need upright Xrays after brace is fitted. Follow up with neurosurgery outpatient. Vitamin D deficiency - 50,000 units weekly - Cont on discharge and f/u with PCP Acute Hypoxic Respiratory Failure History of COPD and asthma, new home oxygen CT PE study negative - Management per primary SURGERIES/PROCEDURES: Date Operation/Procedure Provider Name INCIDENTAL FINDINGS: N/A. RESOLVED PROBLEMS: CHIEF COMPLAINT/ HPI / PFSHx / EVENTS OVER LAST 24HRS: Patient is sitting up in bed, reports mid back pain is controlled, breathing has improved. REVIEW OF SYSTEMS: Other than the above items the remainder of the complete ROS is otherwise unchanged from admission. PHYSICAL EXAM: Temp: [97.4 F (36.3 C)-98.1 F (36.7 C)] 98.1 F (36.7 C) Heart Rate: [77-83] 80 Resp: [20-22] 20 BP: (115-127)/(65-70) 116/67 GENERAL: Appears age appropriate. No acute distress. NEUROLOGICAL: Alert and oriented X 3. Follows commands with extremities x4, equal strength. Pupils equal, round, reactive to light. No focal neurologic deficits noted. GCS = 15 Head Eyes Ear Nose Throat: Head: Atraumatic, normocephalic. Neck: Supple, trachea midline, no midline tenderness, step offs, bony crepitus. CARDIOVASCULAR: Regular rate and rhythm. No peripheral edema noted. 2+ pulses radial/DP/PT bilaterally. RESPIRATORY: Lungs, clear to auscultation bilaterally. Respiratory effort unlabored without use of accessory muscles. NC in place. ABDOMINAL: Rounded, soft, nontender, nondistended. No guarding or peritoneal signs. GENITOURINARY: Normal genitalia for age without lesion or trauma. MUSCULOSKELETAL: Tenderness over mid to thoracic. Extremities atraumatic without gross deformity x4. No clubbing, cyanosis or joint edema. SKIN: Skin warm and dry. Bilateral lower extremity venous changes with various wounds. Intake/Output Summary (Last 24 hours) at 10/17/2024 1122 Last data filed at 10/16/20241999 Gross per 24 hour Intake 800 ml Output 300 ml Net 500 ml IMAGING [briefly note any results pertinent to today's evaluation]: I have personally reviewed the following images CT T/L spine and XR tib/fib LABS Lab Results Component Value Date WBC 4.31 (L) 10/17/2024 HGB 9.7 (L) 10/17/2024 HCT 32.7 (L) 10/17/2024 MCV 70.3 (L) 10/17/2024 EXTMCV 73.5 (L) 05/05/2017 PLT 111 (L) 10/17/2024 RBC 4.65 10/17/2024 Lab Results Component Value Date GLUCOSE 156 (H) 10/16/2024 CALCIUM 8.7 10/16/2024 NA 137 10/16/2024 K 4.4 10/16/2024 CL 97 (L) 10/16/2024 BUN 18 10/16/2024 CREATININE 0.66 10/16/2024 Lab Results Component Value Date ALT 15 10/15/2024 AST 28 10/15/2024 ALKPHOS 89 10/15/2024 BILITOT 0.7 10/15/2024 [facility] and [facility] DAILY PROGRESS NOTE MECHANISM: fall INJURIES: T7 fracture ASSESSMENT & PLAN/ACTIVE MEDICAL PROBLEMS: T7 VB compression fracture S/p fall - Pain control - MRI pending, will consult Nsx pending results - Pain control - therapies when appropriate Vitamin D deficiency - 50,000 units weekly ordered - Cont on discharge and f/u with PCP Acute Hypoxic Respiratory Failure History of COPD and asthma, new home oxygen - CT PE study negative - Management per primary Fall Denies hitting his head or having any LOC No cervical spine pain to palpation - UA/culture pending - Therapies when appropriate SURGERIES/PROCEDURES: Date Operation/Procedure Provider Name INCIDENTAL FINDINGS: N/A. RESOLVED PROBLEMS: CHIEF COMPLAINT/ HPI / PFSHx / EVENTS OVER LAST 24HRS: Patient is sitting up in bed. Tertiary completed. He reports that he had SOB and dizziness likely related to hypoxia which led to fall. He did not hit his head, no LOC. He reports tenderness to mid to low back. REVIEW OF SYSTEMS: Other than the above items the remainder of the complete ROS is otherwise unchanged from admission. PHYSICAL EXAM: Temp: [98.1 F (36.7 C)] 98.1 F (36.7 C) Heart Rate: [76-100] 76 Resp: [13-28] 16 BP: (146-150)/(85-96) 150/85 GENERAL: Appears age appropriate. No acute distress. NEUROLOGICAL: Alert and oriented X 3. Follows commands with extremities x4, equal strength. Pupils equal, round, reactive to light. EOMI. No focal neurologic deficits noted. GCS = 15 Head Eyes Ear Nose Throat: Head: Atraumatic, normocephalic. Neck: Supple, trachea midline, no midline tenderness, step offs, bony crepitus. CARDIOVASCULAR: Regular rate and rhythm. No clicks, rubs, murmurs or gallops noted. No peripheral edema noted. 2+ pulses radial/DP/PT bilaterally. RESPIRATORY: Lungs, clear to auscultation bilaterally. No rhonchi, wheezes or crackles. Respiratory effort unlabored without use of accessory muscles. [address] ABDOMINAL: Rounded, soft, nontender, nondistended, normal bowel sounds. No guarding or peritoneal signs. GENITOURINARY: Normal genitalia for age without lesion or trauma. MUSCULOSKELETAL: Tenderness over mid to thoracic. Extremities atraumatic without gross deformity x4. No clubbing, cyanosis or joint edema. SKIN: Skin warm and dry. No rashes or lesions. No intake or output data in the 24 hours ending 10/16/24 0827 IMAGING [briefly note any results pertinent to today's evaluation]: I have personally reviewed the following images CT T/L spine and XR tib/fib LABS Lab Results Component Value Date WBC 3.77 (L) 10/16/2024 HGB 10.6 (L) 10/16/2024 HCT 36.6 (L) 10/16/2024 MCV 69.8 (L) 10/16/2024 EXTMCV 73.5 (L) 05/05/2017 PLT 116 (L) 10/16/2024 RBC 5.24 10/16/2024 Lab Results Component Value Date GLUCOSE 156 (H) 10/16/2024 CALCIUM 8.7 10/16/2024 NA 137 10/16/2024 K 4.4 10/16/2024 CL 97 (L) 10/16/2024 BUN 18 10/16/2024 CREATININE 0.66 10/16/2024 Lab Results Component Value Date ALT 15 10/15/2024 AST 28 10/15/2024 ALKPHOS 89 10/15/2024 BILITOT 0.7 10/15/2024 Cosigned by Brett Luna MD at 10/16/2024 12:18 PM EST Associated attestation - Brett Luna MD - 10/16/2024 12:18 PM EST TRAUMA/ ACUTE CARE SURGERY ATTENDING NOTE Please link this note as an addendum to the WHIT note with the same day of service. The patient was seen and examined by me, the attending trauma surgeon, on multidisciplinary rounds on the date of service listed above. I have reviewed the WHIT note, labs, studies, and data migration consultant notes. Furthermore even though we both were involved with evaluating this patient today, my participation and time spent has exceeded 51% of the total time spent. I have reviewed and agree with the documented history, exam, and plan of care, with the following additions and corrections: Today: Carmen Gilman is a 59 y.o. adult with morbid obesity presenting with T7 fx following [facility] fall. Pt is being admitted with COPD exacerbation, pt with acute on chronic hypoxic resp failure. On examination GCS 15, NVI, HDS, acute resp failure. Pt with b/l LE edema with venous stasis changes and wound to R foot. Pt c/o mid back pain, has no other acute complaints. CT t/l spine, CT chest, CXR, PXR, b/l tib/fib XR personally reviewed with osteopenia, fx as above. All of the above listed fractures are pathological fractures due to combination of osteopenia and trauma that alone would not have caused them. 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 Vit D 11, will start supp. CBC chem 7 today personally reviewed with chronic anemia, chronic thrombocytopenia, and development today of pancytopenia. [place] [facility] [place] Will f/u nsg recs, MRI pending. Therapies pending results. Cont care per primary team, thank you for this consult. A comprehensive review of systems was performed with the pt and all systems reviewed were negative except those listed in the HPI. Hardy Luna MD, FACS, DABS, DABA Trauma, Acute Care Surgery, Surgical Critical Care, and Neurocritical Care documented in this encounter [facility] 10-24-2024 Hospital course Narrative Images from the original note were not included. [facility] [place] [facility] Carmen Gilman Admitted: 10/15/2024 Discharge Date: 10/24/24 PCP Handoff Recommended Outpatient Testing Follow up with hepatology Results Pending At Discharge none Clinical Summary Assessment and Plan Carmen Gilman is a 59 y.o. adult patient of Ani Worley CNP with history of of COPD, diabetes mellitus, hypertension, hyperlipidemia, opiate dependence, anxiety disorder and arthritis presents with complaints of shortness of breath associated with some dry cough and had a mechanical fall today. Acute on chronic hypoxic respiratory failure Acute COPD exacerbation - resolved Respiratory failure secondary to COPD exacerbation and some amount of hypervolemia as well COVID and influenza negative. MRSA probe negative. CTPA negative for pulm embolism although suboptimal opacification. Completed Po prednisone/ azithromycin, bronchodilators. Symbicort changed to Dulera. Incentive spirometer. Appears to be non complianct New scripts for refills of lasix and aldactone sent with patient. Liver cirrhosis Portal hypertension Esophageal varices Hepatitis C Chronic thrombocytopenia CT abdomen pelvis shows cirrhotic liver morphology with stigmata of portal venous hypertension. No acute pathology. Continue Aldactone and Lasix. Has no extremity edema likely due to cirrhosis. Echo 05/31/2023 reviewed-EF 65 to 70%, diastolic function normal, no significant valve disease. RVSP 49. Compression stockings bilateral lower extremities. Patient tends to be noncompliant had to be firm with him regarding diuresis. S/p albumin Mechanical fall T7 vertebral body compression Fell backwards as he complains of progressive weakness. Denies hitting his head. No loss of consciousness. CT thoracolumbar spine reviewed. Moderate central compression of T7 likely chronic. NSGY recommend a trial with a TLSO brace when out of bed for > 15 minutes. lidocaine patch Hypertension Aldactone and diltiazem. Bilateral leg pain Recently treated for bilateral cellulitis with 10-day course of antibiotics per X-ray tib-fib and pelvis nonacute. Opiate dependence On Subutex. Bilateral lower extremity venous stasis with some cellulitis Left medial leg partial-thickness ulcerations Right plantar foot ulcer Podiatry following Cont diuresis TEDDY wrapping and elevation Has follow up with Dr gonzales on 10/26 at 1.30 pm Discharge Medications Discharge Medications Modified Medications Details ipratropium-albuteroL 0.5-2.5 mg/3 ml nebulizer Commonly known as: DUO-NEB What changed: Another medication with the same name was removed. Continue taking this medication, and follow the directions you see here. Take 3 mL by nebulization 4 (four) times a day as needed for wheezing or shortness of breath . Medications To Continue Details * albuterol 2.5 mg /3 mL (0.083 %) nebulizer solution Commonly known as: PROVENTIL Take 3 mL (2.5 mg total) by nebulization every 6 (six) hours as needed for wheezing . Quantity: 75 mL * albuterol 90 mcg/actuation inhaler Inhale 2 (two) puffs every 6 (six) hours as needed for wheezing . Quantity: 18 g aspirin 81 MG EC tablet Take 1 (one) tablet (81 mg total) by mouth every morning . buprenorphine HCL 8 mg SL Tablet Commonly known as: SUBUTEX Place 2.5 tablets under the tongue daily Reasons: opioid use disorder. diltiazem 240 MG 24 hr capsule Commonly known as: TIAZAC Take 1 (one) capsule (240 mg total) by mouth every morning . furosemide 40 MG tablet Commonly known as: LASIX Take 1 (one) tablet (40 mg total) by mouth 2 (two) times a day . Quantity: 60 tablet gabapentin 600 MG tablet Commonly known as: NEURONTIN Take 1 (one) tablet (600 mg total) by mouth 4 (four) times a day . meloxicam 15 MG tablet Commonly known as: MOBIC Take 1 (one) tablet (15 mg total) by mouth daily . naloxone 4 mg/actuation [place] Commonly known as: NARCAN Administer 1 spray into one nostril for known or suspected opioid overdose. If patient worsens or does not respond, may repeat in 2-3 minutes. . Quantity: 2 each pantoprazole 20 MG tablet Commonly known as: PROTONIX Take 1 (one) tablet (20 mg total) by mouth daily Start: 01/09/20. Quantity: 30 tablet spironolactone 25 MG tablet Commonly known as: ALDACTONE Take 2 (two) tablets (50 mg total) by mouth daily . Quantity: 60 tablet Symbicort 160-4.5 mcg/actuation inhaler Generic drug: budesonide-formoteroL Inhale 2 (two) puffs 2 (two) times a day . * There are duplicate medications prescribed to the patient Stopped Medications Combivent Respimat 20-100 mcg/actuation Mist Generic drug: ipratropium-albuteroL You also have another medication with the same name that you need to continue taking as instructed. predniSONE 5 MG tablet Commonly known as: DELTASONE simethicone 125 MG chewable tablet Commonly known as: GAS-X Extra Strength Physician(s) Follow Up: OTHER - NOT IN LIST Sammy Esteves MD [address] [place], [place] [id number] Follow up Call to schedule a 4 week follow up visit with repeat XRAY [facility] Address: N/a Servicing [facility]: [facility] [phone] Condition at Discharge: Stable Disposition: Home I reviewed discharge recommendations with the patient in person. Patient instructions, including activity, were given to the patient/family at discharge. On day of discharge I saw Carmen Gilman and spent: > 30 minutes on discharge. Completed by: Cameron Vargas MD on 10/24/24, 1:07 PM documented in this encounter [facility] 10-24-2024 Plan of care note Problem: Actual or potential alteration in health Goal: Absence of healthcare acquired conditions Outcome: Partially Met Goal: Knowledge of Interdisciplinary Plan of Care Outcome: Partially Met Goal: Knowledge of Enviroment Outcome: Partially Met Problem: Pressure Injury, Risk of Goal: Absence of pressure injury Outcome: Partially Met Problem: Pain Goal: Reduced pain sensation Outcome: Partially Met Goal: Control of acute pain to acceptable level Outcome: Partially Met Goal: Able to cope with pain Outcome: Partially Met Goal: Able to achieve maximum level of physical functioning Outcome: Partially Met Goal: Able to achieve maximum level of psychosocial functioning Outcome: Partially Met Problem: Falls, Risk of Goal: Absence of falls Outcome: Partially Met Goal: Absence of physical injury Outcome: Partially Met [facility] 10-24-2024 Miscellaneous Notes Problem: Actual or potential alteration in health Goal: Absence of healthcare acquired conditions Outcome: Partially Met Goal: Knowledge of Interdisciplinary Plan of Care Outcome: Partially Met Goal: Knowledge of Enviroment Outcome: Partially Met Problem: Pressure Injury, Risk of Goal: Absence of pressure injury Outcome: Partially Met Problem: Pain Goal: Reduced pain sensation Outcome: Partially Met Goal: Control of acute pain to acceptable level Outcome: Partially Met Goal: Able to cope with pain Outcome: Partially Met Goal: Able to achieve maximum level of physical functioning Outcome: Partially Met Goal: Able to achieve maximum level of psychosocial functioning Outcome: Partially Met Problem: Falls, Risk of Goal: Absence of falls Outcome: Partially Met Goal: Absence of physical injury Outcome: Partially Met Patient left the unit with a family member in a wheelchair. Patient was advised not to leave the unit and that he needed to wear his oxygen. Patient stated he didn't care and left. Explained the importance of having his lower legs wrapped for his wound care and to decrease swelling. Patient refusing to keep his teddy wraps on and removed his wraps. Explained to patient that his legs need to stayed wrapped and his dressing is due to be changed. Patient stated you are not doing that. Refusing to have dressing change at this time. Patient found without oxygen on while sleeping. When waking patient, he had complaints of feeling short of breath. Oxygen placed back in patient nose. Patient denies wanting PRN breathing treatments. Educated patient on importance of leaving oxygen on. At this time patient refusing scheduled lasix. Educated patient on importance of this medication. Patient states "maybe with my other morning medications". Urinal emptied at this time. Patient denies other needs. 5: At this time attempted to give patient scheduled medications. He states "I've been waiting on my subutex". Explained to patient medication due times. Patient at this time refusing lasix, inhaler, lovenox, melatonin, and trazodone stating I just want my subutex and other meds. Ill do the rest later". 2213: Patient at this time called requesting lasix and inhaler. Continues to refuse melatonin, trazodone, and lovenox. Patient without oxygen on, states he is short of breath. Oxygen placed back on patient. Patient denies other needs at this time. 2329: Patient at this time called stating "I need my sleep aids. I shouldn't have to call for you to do your job". Explained to patient that medications were offered several times and that he continued to deny wanting them as offered. At this time melatonin and trazodone administered per patient request. Urinal emptied. Patient sitting on edge of bed appearing short of breath, oxygen off. Patient denies wanting to wear oxygen at this time. Patient denies other needs at this time. Problem: Actual or potential alteration in health Goal: Absence of healthcare acquired conditions Outcome: Partially Met Goal: Knowledge of Interdisciplinary Plan of Care Outcome: Partially Met Goal: Knowledge of Enviroment Outcome: Partially Met Problem: Pressure Injury, Risk of Goal: Absence of pressure injury Outcome: Partially Met Problem: Pain Goal: Reduced pain sensation Outcome: Partially Met Goal: Control of acute pain to acceptable level Outcome: Partially Met Goal: Able to cope with pain Outcome: Partially Met Goal: Able to achieve maximum level of physical functioning Outcome: Partially Met Goal: Able to achieve maximum level of psychosocial functioning Outcome: Partially Met Problem: Falls, Risk of Goal: Absence of falls Outcome: Partially Met Goal: Absence of physical injury Outcome: Partially Met Problem: Actual or potential alteration in health Goal: Absence of healthcare acquired conditions Outcome: Partially Met Goal: Knowledge of Interdisciplinary Plan of Care Outcome: Partially Met Goal: Knowledge of Enviroment Outcome: Partially Met Problem: Pressure Injury, Risk of Goal: Absence of pressure injury Outcome: Partially Met Problem: Pain Goal: Reduced pain sensation Outcome: Partially Met Goal: Control of acute pain to acceptable level Outcome: Partially Met Goal: Able to cope with pain Outcome: Partially Met Goal: Able to achieve maximum level of physical functioning Outcome: Partially Met Goal: Able to achieve maximum level of psychosocial functioning Outcome: Partially Met At 0515, this RN enters patient room to see TEDDY bandages on the floor. Patient stated that he removed them "because I was too hot". Patient refused TEDDY wraps to be put on. This RN removed soiled gauze on left leg wound and re-wrapped with kerlix. Patient educated about risk of infection. Problem: Actual or potential alteration in health Goal: Absence of healthcare acquired conditions Outcome: Partially Met Goal: Knowledge of Interdisciplinary Plan of Care Outcome: Partially Met Goal: Knowledge of Enviroment Outcome: Partially Met Problem: Pressure Injury, Risk of Goal: Absence of pressure injury Outcome: Partially Met Problem: Pain Goal: Reduced pain sensation Outcome: Partially Met Goal: Control of acute pain to acceptable level Outcome: Partially Met Goal: Able to cope with pain Outcome: Partially Met Goal: Able to achieve maximum level of physical functioning Outcome: Partially Met Goal: Able to achieve maximum level of psychosocial functioning Outcome: Partially Met PHYSICAL THERAPY VISIT VARIANCE NOTE Attempted to see patient at this time, but unable secondary to: Patient Unavailable (Patient politely stated he is waiting on provider for debridement of leg). Will follow up as appropriate. OCCUPATIONAL THERAPY VISIT VARIANCE NOTE Attempted to see patient at this time, but unable secondary to: Patient Unavailable (plans for debridement in the next hour). Will follow up as appropriate. I have attempted to see patient twice today, initially with family in the room eating breakfast. Second time patient is seen in his room sleeping in recliner with legs elevated. The minute I enter the room he states he has to use the restroom and I need to come back. Return to patient's room a third time after discussing with Dr. Gonzales who will plan to debride left medial leg ulcers with the use of topical lidocaine. This was ordered. Discussed with patient plan for bedside debridement of the left leg with the use of topical lidocaine. Patient states he will be in bed awaiting debridement by Dr. Gonzales which is planned for 1 PM. Primary nurse aware. Problem: Actual or potential alteration in health Goal: Absence of healthcare acquired conditions Outcome: Partially Met Goal: Knowledge of Interdisciplinary Plan of Care Outcome: Partially Met Goal: Knowledge of Enviroment Outcome: Partially Met Problem: Pressure Injury, Risk of Goal: Absence of pressure injury Outcome: Partially Met Problem: Pain Goal: Reduced pain sensation Outcome: Partially Met Goal: Control of acute pain to acceptable level Outcome: Partially Met Goal: Able to cope with pain Outcome: Partially Met Goal: Able to achieve maximum level of physical functioning Outcome: Partially Met Goal: Able to achieve maximum level of psychosocial functioning Outcome: Partially Met PHYSICAL THERAPY VISIT VARIANCE NOTE Attempted to see patient at this time, but unable secondary to: Patient Unavailable (Patient politely requested PT return later today as he is trying to take a nap. Stated he has already walked in the hallway). Will follow up as appropriate. Pt asked for assistance with his dressing changed previously. Pt sleeping at this time. Will check back on pt. Neurosurgery Sign-Off Consulting Neurosurgeon: Dr. Gardner, Neurosurgery WHIT Diagnosis: T7 compression fracture Plan: No acute neurosurgical intervention warranted Follow-up: With neurosurgery office in 4 weeks with repeat XR With PCP for any bone density testing, treatments if needed Medications: Per primary team. DVT Prophylaxis: Per primary team. Braces: TLSO when out of bed Activity: As tolerated With brace OOB. D/w Dr. Gardner Discharge instructions updated with appropriate follow-up. The Neurosurgery service will sign off at this time. Please re-consult or call our 14/03 on-call number at [phone] with any questions, concerns or clinical updates. Patient ambulating in gilman without assistance or TSLO brace. Educated patient on need to wear brace while out of bed, patient refusing at this time. Patient assisted back to room, sitting in chair. Problem: Actual or potential alteration in health Goal: Absence of healthcare acquired conditions Outcome: Partially Met Goal: Knowledge of Interdisciplinary Plan of Care Outcome: Partially Met Goal: Knowledge of Enviroment Outcome: Partially Met Problem: Pressure Injury, Risk of Goal: Absence of pressure injury Outcome: Partially Met Problem: Pain Goal: Reduced pain sensation Outcome: Partially Met Goal: Control of acute pain to acceptable level Outcome: Partially Met Goal: Able to cope with pain Outcome: Partially Met Goal: Able to achieve maximum level of physical functioning Outcome: Partially Met Goal: Able to achieve maximum level of psychosocial functioning Outcome: Partially Met Problem: Actual or potential alteration in health Goal: Absence of healthcare acquired conditions Outcome: Partially Met Goal: Knowledge of Interdisciplinary Plan of Care Outcome: Partially Met Goal: Knowledge of Enviroment Outcome: Partially Met Problem: Pressure Injury, Risk of Goal: Absence of pressure injury Outcome: Partially Met Problem: Pain Goal: Reduced pain sensation Outcome: Partially Met Goal: Control of acute pain to acceptable level Outcome: Partially Met Goal: Able to cope with pain Outcome: Partially Met Goal: Able to achieve maximum level of physical functioning Outcome: Partially Met Goal: Able to achieve maximum level of psychosocial functioning Outcome: Partially Met 2020 Patient educated on compression stocking orders, continuous pulse ox, and cardiac monitoring. Patient declines all at this time, asking RN to contact doctor about "injectable Lasix". Marcelina Wiggins PA notified at this time. 2100 Patient agreeable to pulse ox and compression stockings. Declines continuous cardiac monitoring. 0100 Patient requests left teddy wrap to be removed, states it is uncomfortable. Patient educated on order and advised to elevate legs. 0600 Patient continuous to decline cardiac monitoring, states "my heart is fine". Problem: Actual or potential alteration in health Goal: Absence of healthcare acquired conditions Outcome: Partially Met Goal: Knowledge of Interdisciplinary Plan of Care Outcome: Partially Met Goal: Knowledge of Enviroment Outcome: Partially Met Problem: Pressure Injury, Risk of Goal: Absence of pressure injury Outcome: Partially Met Problem: Pain Goal: Reduced pain sensation Outcome: Partially Met Goal: Control of acute pain to acceptable level Outcome: Partially Met Goal: Able to cope with pain Outcome: Partially Met Goal: Able to achieve maximum level of physical functioning Outcome: Partially Met Goal: Able to achieve maximum level of psychosocial functioning Outcome: Partially Met Tried to complete 4 eyes assessment. Patient refusing hospital gown, wants to wear his own clothes. This RN and Rosaline RN explained the 4 eyes assessment, patient replied "I only have my legs that are open, you can look at those." Both Rosaline MENDOZA and Monica RN checked B/L legs, and arms. documented in this encounter [facility] 10-23-2024 Progress note Formatting of t his note might be different from the original. Patient left the unit with a family member in a wheelchair. Patient was advised not to leave the unit and that he needed to wear his oxygen. Patient stated he didn't care and left. [facility] 10-23-2024 Progress note Formatting of t his note might be different from the original. Explained the importance of having his lower legs wrapped for his wound care and to decrease swelling. Patient refusing to keep his teddy wraps on and removed his wraps. Explained to patient that his legs need to stayed wrapped and his dressing is due to be changed. Patient stated you are not doing that. Refusing to have dressing change at this time. [facility] 10-23-2024 Note [facility] 10-23-2024 Progress note Formatting of t his note might be different from the original. Patient found without oxygen on while sleeping. When waking patient, he had complaints of feeling short of breath. Oxygen placed back in patient nose. Patient denies wanting PRN breathing treatments. Educated patient on importance of leaving oxygen on. At this time patient refusing scheduled lasix. Educated patient on importance of this medication. Patient states "maybe with my other morning medications". Urinal emptied at this time. Patient denies other needs. [facility] 10-22-2024 Progress note Formatting of t his note might be different from the original. 2134: At this time attempted to give patient scheduled medications. He states "I've been waiting on my subutex". Explained to patient medication due times. Patient at this time refusing lasix, inhaler, lovenox, melatonin, and trazodone stating I just want my subutex and other meds. Ill do the rest later". 2213: Patient at this time called requesting lasix and inhaler. Continues to refuse melatonin, trazodone, and lovenox. Patient without oxygen on, states he is short of breath. Oxygen placed back on patient. Patient denies other needs at this time. 2329: Patient at this time called stating "I need my sleep aids. I shouldn't have to call for you to do your job". Explained to patient that medications were offered several times and that he continued to deny wanting them as offered. At this time melatonin and trazodone administered per patient request. Urinal emptied. Patient sitting on edge of bed appearing short of breath, oxygen off. Patient denies wanting to wear oxygen at this time. Patient denies other needs at this time. [facility] 10-22-2024 Note [facility] 10-22-2024 Note [facility] 10-22-2024 Consult note Formatting of th is note might be different from the original. Physical Therapy PHYSICAL THERAPY SCREEN Patient was screened by Physical Therapy. Upon review of the chart and discussion with the patient and discussion with the nurse, no skilled Physical Therapy intervention is indicated. Order discontinued at this time. Patient has been ambulating in hallway with modified independence. Patient stated he feels comfortable with donning/doffing TLSO. [facility] 10-22-2024 Consult note Formatting of th is note might be different from the original. Occupational Therapy OCCUPATIONAL THERAPY SCREEN Patient was screened by Occupational Therapy. Upon review of the chart and discussion with the patient, discussion with the nurse, and observation of the patient, no skilled Occupational Therapy intervention is indicated. Pt has been up independently in the room and completing most ADLs without assist. Pt asking about toileting tongs due to difficulty with posterior pericare. Pt educated on option of purchasing upon discharge. No other skilled OT needs at this time, order discontinued at this time. [facility] 10-22-2024 Consult note Formatting of th is note might be different from the original. Physical Therapy PHYSICAL THERAPY SCREEN Patient was screened by Physical Therapy. Upon review of the chart and discussion with the patient and discussion with the nurse, no skilled Physical Therapy intervention is indicated. Order discontinued at this time. Patient has been ambulating in hallway with modified independence. Patient stated he feels comfortable with donning/doffing TLSO. Occupational Therapy OCCUPATIONAL THERAPY SCREEN Patient was screened by Occupational Therapy. Upon review of the chart and discussion with the patient, discussion with the nurse, and observation of the patient, no skilled Occupational Therapy intervention is indicated. Pt has been up independently in the room and completing most ADLs without assist. Pt asking about toileting tongs due to difficulty with posterior pericare. Pt educated on option of purchasing upon discharge. No other skilled OT needs at this time, order discontinued at this time. Associated Order(s): IP CONSULT TO HOME HEALTH HUB 10/17/2024 3:41 pm- [facility] consult received to set up home health care services. Name of [facility] agency: Pending / Accepted (if [facility], include region) Accepted- [place] (orders) created for the following services: [or waiting for ____ (i.e wound care)] Yes- SN,PT,OT,RESIDENTIAL CHILD CARE COUNSELOR Verify demographics (residential address) [address] [place] [id number] What is the primary number to reach you? [phone] Following physician will be: (list first name/last name) Ani Worley CNP Do you have a caregiver and/or teachable caregiver (list relationship, name & phone #)? Lives alone with support from family members Estimated Discharge Date (NATI): 10/19 If discharge needs change, please reach out to liaison assigned on treatment team as hub is not notified of new consults once team is following. Thank you. Associated Order(s): IP CONSULT TO PODIATRY Images from the original note were not included. PODIATRY CONSULTATION Patient Name: Carmen Gilman. . Date of : 1965, 59 y.o.. Gender: male. Date of Consultation: 10/17/2024. Author: Quyen Franco CNP Thank you Arben Parrish MD for this consultation. We appreciate the opportunity to help care for your patient. Below you will find our findings and recommendations: Reason for Consultation: previous bilateral lower extremity cellulitis, erythema / edema, wounds Assessment: 59 y.o. male with the following pedal anomalies: Bilateral lower extremity venous stasis with some cellulitis Left medial leg partial-thickness ulcerations Right plantar foot ulcer concerning for abscess Right midfoot collapse Diabetes mellitus Poor self-care Plan: Patient was seen and evaluated at the bedside, I discussed the findings with the patient. CRP pending, ESR 49. WBC 4.31. Hemoglobin A1c 6.2 Wound culture ordered of left leg Right foot MRI: Patient was unable to complete the entirety of the study. Soft tissue ulceration over the plantar aspect of the medial cuneiform without evidence of underlying osteomyelitis or abscess noted ABIs triphasic throughout with no evidence of small vessel disease at the transmetatarsal level of either foot Dressings as follows: Cleanse both legs with chlorhexadine brush. Apply ammonium lactate to both legs. Apply saline soaked 2x2 gauze to left leg ulcers and right foot ulcer. Secure with kerlix and TEDDY from base of toes to below knees Elevate legs as much as possible to decrease swelling No immediate podiatric surgical plans. Continue wound care and leg elevation, continue treatment of underlying conditions. We will follow History of Present Illness: Patient is a 59 y.o. male consulted to the Podiatry Service for leg ulcers. Patient presented to the ED with worsening shortness of breath over the past 10 days. Patient also reports a fall yesterday as well as increased drainage of both legs. Patient administered albuterol to himself 23 times the day of admission. ED intake note mentions patient following outpatient for his lower extremities, however he has not been seen by our service since December 2023. Patient states no one is doing dressing changes for him and he has not seen anyone for his legs in quite some time. Patient had followed previously with Dr. Gonzales for right lower extremity ulcers, undergoing Versajet debridement in May 2023 followed by split-thickness skin graft July 2023. Right lateral leg full-thickness ulcer has remained closed for some time. Left medial leg ulceration continues, although this is different than the ulceration he had previously. At some point patient developed right foot pain and was seen by Dr. Radford. Noted to have midfoot collapse. Patient was offered the option of reconstruction versus AFO bracing. Patient chose bracing. He does not wear this consistently. On exam he denies any new pedal injury or trauma, but does admit to poor self-care. Past medical history significant for anxiety, COPD, diabetes, hypertension, history of opioid dependence on Suboxone. Patient is a previous smoker Estimated body mass index is 44.76 kg/m as calculated from the following: Height as of 10/16/24: 6'. Weight as of this encounter: 149.7 kg (330 lb). Allergies: No Known Allergies. Scheduled Meds: aspirin 81 mg Oral QAM azithromycin 250 mg Oral Q24H buprenorphine HCL 4 mg Sublingual Daily buprenorphine HCL 8 mg Sublingual BID cholecalciferol (vitamin D3) 50,000 Units Oral Weekly diltiazem 240 mg Oral Daily enoxaparin (LOVENOX) injection 40 mg Subcutaneous Daily furosemide 40 mg Oral BID gabapentin 600 mg Oral 4x daily ipratropium-albuteroL 3 mL Inhalation Q4H [facility] lidocaine 1 patch Transdermal Daily melatonin 10 mg Oral Nightly mometasone-formoterol 2 puff Inhalation BID nicotine 1 patch Transdermal Daily pantoprazole 20 mg Oral Daily predniSONE 40 mg Oral Daily spironolactone 50 mg Oral Daily traZODone 50 mg Oral Nightly . Continuous Infusions: . PRN Meds: acetaminophen, albuterol, magnesium hydroxide, ondansetron, [COMPLETED] Insert peripheral IV AND Saline lock IV AND sodium chloride (PF) AND sodium chloride 0.9 %. Medical History: Past Medical History: Diagnosis Date Anxiety Arrhythmia Arthritis Asthma COPD (chronic obstructive pulmonary disease) (HCC) Diabetes (HCC) Hypertension Opioid dependence (HCC) Secondary adrenal insufficiency 04/30/2022 left AMA 04/30/22 without treatment . Surgical History: Past Surgical History: Procedure Laterality Date APPENDECTOMY ARTHROPLASTY KNEE TOTAL ROBOTIC ASSISTED Right 01/08/2020 Procedure: Right Total Knee Replacement Robotic; Surgeon: Sofía Dukes MD; Location: Main OR; Service: Ortho-Robotics DEBRIDEMENT WITH WOUND CLOSURE POSS SKIN GRAFT LOWER EXTR Right 06/03/2023 Procedure: RIGHT LATERAL LEG Debridement with VERSAJET; Surgeon: ALEXEY Radford DPM; Location: Main OR; Service: Podiatry FOOT SURGERY Left MANDIBLE FRACTURE SURGERY ORTHOPEDIC SURGERY Right knee SKIN GRAFT SPLIT THICKNESS LOWER EXTREMITY Right 08/05/2023 Procedure: RIGHT LOWER LEG SPLIT THICKNESS SKIN GRAFT; Surgeon: Cecilia Gonzales DPM; Location: Main OR; Service: Podiatry THORACIC DUCT LIGATION 01/15/2017 THORACIC DUCT LIGATION WOUND VAC Right 06/03/2023 Procedure: APPLICATION WOUND VAC; Surgeon: ALEXEY Radford DPM; Location: Main OR; Service: Podiatry . Social History: Social History Socioeconomic History Marital status: Single Tobacco Use Smoking status: Former Passive exposure: Current Smokeless tobacco: Current Types: Chew Vaping Use Vaping status: Never Used Substance and Sexual Activity Alcohol use: Not Currently Drug use: Not Currently Types: Marijuana Sexual activity: Not Currently Social History Narrative Merged History Encounter Merged History Encounter Social Drivers of Health Financial Resource Strain: Low Risk (07/03/2024) Overall Financial Resource Strain (CARDIA) Difficulty of Paying Living Expenses: Not very hard Food Insecurity: Food Insecurity Present (10/16/2024) Hunger Vital Sign Worried About Running Out of Food in the Last Year: Sometimes true Ran Out of Food in the Last Year: Sometimes true Transportation Needs: No Transportation Needs (10/16/2024) PRAPARE - Transportation Lack of Transportation (Medical): No Lack of Transportation (Non-Medical): No Housing Stability: Low Risk (10/16/2024) Housing Stability Vital Sign Unable to Pay for Housing in the Last Year: No Number of Times Moved in the Last Year: 1 Homeless in the Last Year: No Family History: Family History Problem Relation Age of Onset Heart disease Mother Diabetes Mother Review of Systems: Pertinent positives and negatives as mentioned above, otherwise full review of systems is negative unless mentioned below: Patient currently denies Nausea/Vomiting/Fever/Chills/Shor tness of Breath/Chest Pain. Physical Examination: BP 116/67 Pulse 80 Temp 98.1 F (36.7 C) Resp (!) 20 Wt (!) 149.7 kg (330 lb) SpO2 92% BMI 44.76 kg/m General Appearance: Alert, cooperative, short of breath, chronically ill, appears older than stated age. Podiatric Exam Vascular: DP and PT pulses are palpable 2 of 4. Capillary refill time is less than 3 seconds to distal digits. Skin temperature is warm to warm from proximal tibial tuberosity to distal digit. Significant bilateral lower extremity edema and pedal edema Neurological: Gross sensation is diminished. Protective sensation is diminished. Babinski's is normal. Dermatologic: Bilateral lower extremities with dry xerotic skin and significant vascular discoloration. Left medial leg with superficial to partial-thickness venous stasis ulcer surrounded by crusted tissue. No ulceration present to right lower extremity. Right medial plantar foot with preulcerative callus/crusted ulceration. Onychomycosis Musculoskeletal: Compartments soft and compressible. No calf pain or fullness. Muscle strength 5/5. Right midfoot collapse without rocker-bottom morphology L leg R leg R foot Laboratory Data: Lab Results Component Value Date WBC 4.31 (L) 10/17/2024 WBC 5.0 05/05/2017 HGB 9.7 (L) 10/17/2024 HGB 11.4 (L) 10/15/2024 HGB 11.6 (L) 05/05/2017 HCT 32.7 (L) 10/17/2024 HCT 35.1 (L) 10/15/2024 PLT 111 (L) 10/17/2024 PLT 122 (L) 05/05/2017 BUN 18 10/16/2024 BUN 18 05/05/2017 CREATININE 0.66 10/16/2024 CREATININE 0.68 05/05/2017 INR 1.1 09/19/2023 CRP 36.2 (H) 07/02/2024 SEDRATE 101 (H) 07/02/2024 HGBA1C 4.7 07/30/2023 HGBA1C 4.9 05/05/2017 URICACID 6.2 03/08/2018 Radiographs: MR Thoracic Spine Without Contrast Final Result by Enrique Carrasco MD (10/16/2024 1639) 1. Compression fracture at T7 appears to be likely subacute. There is bone marrow edema throughout the vertebral body and approximately 55% decreased vertebral body height. No significant retropulsion of bone fragments into the canal. There is some mild disc bulge at T6-7 mildly effacing the ventral aspect of the thecal sac without spinal cord compression. 2. No other compression fractures. No epidural hematoma. 3. No spinal cord compression or abnormal signal in the thoracic spinal cord. DMG/alt Workstation ID: [id number] CT Thoracic And Lumbar Spine Reconstructed Final Result by Jonathan Rodrigez MD (10/16/2024 0059) 1. There is moderate central compression of the T7 vertebral body, new compared to 07/02/2024. No definite fracture lines are visualized. This could be a chronic and less likely acute/subacute compression fracture. If there is focal point tenderness or further concern, MRI should be obtained. 2. Stable chronic compression fractures at the L1 and L2 vertebral bodies. 3. No acute compression fracture in the remaining thoracic and lumbar spine. EYY/mjr Workstation ID: [id number] CTA Pulm Art and CT Abd Pelvis with IV contrast Final Result by Fransisco Camilo MD (10/15/2024 2313) 1. Suboptimal pulmonary artery opacification, but no evidence of pulmonary emboli or other acute thoracic findings. 2. Cirrhotic liver morphology similar to prior with stigmata of portal venous hypertension. 3. No acute intraabdominal findings otherwise. 4. New fracture of T7. Workstation ID: [id number] Again, thank you for the opportunity to help care for your patient. Quyen Franco CNP Cosigned by Cecilia Gonzales DPM at 10/18/2024 8:46 AM EST Associated attestation - Cecilia Gonzales DPM - 10/18/2024 8:46 AM EST Images from the original note were not included. Patient was seen at bedside on 10/17/2024 with our nurse practitioner Karla Franco. I agree with her assessment and plan as outlined in the consultation note. Patient has bilateral lower extremity wounds that would benefit from bedside excisional debridement. Will perform this tomorrow 10/18/2024. Cecilia Gonzales DPM, MS Podiatric Physician & Surgeon Associated Order(s): IP CONSULT TO CARE MANAGEMENT Care Management Consult Note Date: 10/17/2024 Time: 2:46 PM Patient Name: Carmen Gilman Date of : 1965 Reason for Consult: Discharge Plan: Plan A: Home Health Care Services Plan B: Home Discharging Transportation Plan: Discharge Plan Status: pend medical readiness Assessment and Background Information: KELLY MCCRARY Assessment: Face to Face with pt for initial transition planning/care coordination assessment. KELLY MCCRARY introduced self and role, pt voices understanding and consents to assessment. Pt is A/Ox4 and answers all questions appropriately at this time. Pt is lying in bed in no distress on 2L nc. Care providers, pharmacy, and demographics verified/updated. Admitting Dx: COPD, resp failure PCP: [facility] Specialists: none Preferred Pharmacy: [facility] Insurance: [facility] Prescription Benefit: yes, pt states no concerns obtaining/affording meds but states is not compliant with meds at home. Pt states 'I don't what I should be taking, I need a nurse to come in and help me with that.' LW/HPOA: does not have LNOK: Calin Gilman, brother Living Arrangements: Pt lives alone in [facility] independent living apartments with no steps and states needs assistance with all ADL's. Transportation: Pt drives self and states no concerns with transportation. DME/HHC/SNF: Pt states no need for further DME. Pt states has had HHC in the past and would like referral for discharge. Pt states no preference on HHC agency and declines list at this time. Order to [facility] hub for SN/PT/OT/aide. Pt has been to [facility] and [facility] in the past and adamantly insists several times that he will not go back to a SNF. Pt states is in contact with a CM but unsure of their name/program. Pt is too young for [facility] so call to [place] waiver program, [facility], and they state pt was denied for [facility] care [facility] in September. Pt is on disability. Pt does not smoke cigarettes or drink ETOH. Pt states no concerns with going home at time of dc and states no further questions/concerns/needs. Advised pt to ask for CM if any further question/concerns/needs arise, voices understanding. CM to follow. Pt Goal: Home w/ HHC Plan: Home w/ HHC, AAOA Living Arrangements: Alone Support Systems: Family members Assistance Needed: yes (C requested by patient) Type of Residence: Private residence Prior to Admission Home Care Services: No Patient expects to be discharged to:: Home Does the patient need discharge transport arranged?: No Current Home Equipment: Cane Holistic Assessment Medication adherence problem:: (!) Yes Barriers to medication adherence: Don't understand History of falls in last 6 months:: (!) Yes Family aware of the patient's advance care planning wishes:: No Do you have any cultural/spiritual connections or beliefs that would impact how we deliver your care?: No Chronic pain:: (!) Yes Location of chronic pain:: legs, back, ribs Chronic pain timing:: Intermittent Limitation of routine activities due to chronic pain:: Yes Associated Order(s): IP CONSULT TO NEUROSURGERY Neurosurgery Inpatient Consult [facility] 10/16/2024 Radames Hendrickson PA-C [facility] Patient: Carmen Gilman Date of : 1965 (59 y.o.) Referring Provider: Refer to consult order in electronic medical record PCP: Delany, Ani M, ENVIRONMENTAL [employer]CI[employer] PLANNER ASSESSMENT/PLAN: MRI T spine reviewed, other images reviewed Acute/subacute T7 compression fracture, no retropulsion Compression fracture at T7 appears to be likely subacute. There is bone marrow edema throughout the vertebral body and approximately 55% decreased vertebral body height. No significant retropulsion of bone fragments into the canal. There is some mild disc bulge at T6-7 mildly effacing the ventral aspect of the thecal sac without spinal cord compression. 2. No other compression fractures. No epidural hematoma. 3. No spinal cord compression or abnormal signal in the thoracic spinal cord Probable right sixth rib fracture seen on CT COPD exacerbation with chronic respiratory failure Morbid obesity Lower extremity edema with multiple nonhealing leg sores No urgent neurosurgical interventions No diet restrictions per neurosurgery Plan to order TLSO brace to be worn when out of bed when safe pending resp status Do not see the need for further imaging Admitted with these risk variables:None. Please see assessment and plan for further details. SUBJECTIVE: Chief Complaint/Reason for Consult: Acute T7 compression fracture after a fall Time of arrival to bedside: 9:55pm Informant(s): Patient History of Present Illness: Carmen Gilman is a 59 y.o. adult who 59 yo man who presented to ED after a fall and found to have an acute T7 compression fracture. Patient had a fall several weeks ago when he slipped on some water in the kitchen and landed on his right side. His lower back and his right side have been very painful since then. He believes his fall more recently today exacerbated his pain. He tripped and fell over a cement block and landed on his back. He denies any numbness or tingling in his legs. He denies any changes in his bowel and bladder control. He states his pain is in his mid to lower lumbar region in his lower thoracic region. He denies any neck pain. He denies any numbness tingling or weakness in his arms or hands. He has significant difficulty breathing and taking deep inspiration secondary to his right rib pain. His right rib pain is actually more painful than his back today. He has past significant history of liver cirrhosis portal hypertension esophageal varices hepatitis C chronic thrombocytopenia COPD chronic anemia. Review of Systems: Shortness of breath, right rib pain, mid low back pain, leg swelling, leg sores, further review of systems see hospitalist H&P Past Medical History: has a past medical history of Anxiety, Arrhythmia, Arthritis, Asthma, COPD (chronic obstructive pulmonary disease) ([facility]), Diabetes ([facility]), Hypertension, Opioid dependence ([facility]), and Secondary adrenal insufficiency (04/30/2022). Past Surgical History: has a past surgical history that includes Thoracic duct ligation (01/15/2017); ARTHROPLASTY KNEE TOTAL ROBOTIC (Right, 01/08/2020); orthopedic surgery (Right); Mandible fracture surgery; Appendectomy; Foot surgery (Left); Thoracic duct ligation; Debridement With Wound Closure Poss Skin Graft Lower Extr (Right, 06/03/2023); Wound Vac (Right, 06/03/2023); and Skin Graft Split Thickness Lower Extremity (Right, 08/05/2023). Social History: reports that he has quit smoking. He has been exposed to tobacco smoke. His smokeless tobacco use includes chew. He reports that he does not currently use alcohol. He reports that he does not currently use drugs after having used the following drugs: Marijuana. Family History: Noncontributory to this neurosurgical evaluation Additional History Comments: None Allergies: has No Known Allergies. HOME Medications: Prior to Admission medications Medication Sig Start Date End Date Taking? Authorizing Provider albuterol 90 mcg/actuation inhaler Inhale 2 (two) puffs every 6 (six) hours as needed for wheezing . 07/04/24 10/16/24 Yes Cameron Vargas MD buprenorphine HCL (SUBUTEX) [address] 2.5 tablets under the tongue daily Reasons: opioid use disorder. Yes Jamar Escobedo MD diltiazem (TIAZAC) 240 MG 24 hr capsule Take 1 (one) capsule (240 mg total) by mouth every morning . 09/03/20 Yes Jamar Escobedo MD furosemide (LASIX) 40 MG tablet Take 1 (one) tablet (40 mg total) by mouth 2 (two) times a day . Yes Jamar Escobedo MD gabapentin (NEURONTIN) 600 MG tablet Take 1 (one) tablet (600 mg total) by mouth 4 (four) times a day . 05/13/23 Yes Jamar Escobedo MD ipratropium-albuteroL (DUO-NEB) 0.5-2.5 mg/3 ml nebulizer Take 3 mL by nebulization 4 (four) times a day as needed for wheezing or shortness of breath . Yes Jamar Escobedo MD meloxicam (MOBIC) 15 MG tablet Take 1 (one) tablet (15 mg total) by mouth daily . 10/05/24 Yes Jamar Escobedo MD naloxone (NARCAN) 4 mg/actuation [place] Administer 1 spray into one nostril for known or suspected opioid overdose. If patient worsens or does not respond, may repeat in 2-3 minutes. . 06/09/23 Yes Brody Newman MD Symbicort 160-4.5 mcg/actuation inhaler Inhale 2 (two) puffs 2 (two) times a day . 09/17/21 Yes Jamar Escobedo MD albuterol (PROVENTIL) 2.5 mg /3 mL (0.083 %) nebulizer solution Take 3 mL (2.5 mg total) by nebulization every 6 (six) hours as needed for wheezing . 04/03/19 01/17/24 Kinsey Ignacio MD aspirin 81 MG EC tablet Take 1 (one) tablet (81 mg total) by mouth every morning . 09/03/20 Jamar Escobedo MD Combivent Respimat 20-100 mcg/actuation Mist Inhale 1 (one) puff to 2 (two) puffs every 4 to 6 hours as needed . 04/18/21 Jamar Escobedo MD pantoprazole (PROTONIX) 20 MG tablet Take 1 (one) tablet (20 mg total) by mouth daily Start: 01/09/20. 01/09/20 07/02/24 Sofía Dukes MD predniSONE (DELTASONE) 5 MG tablet Take 1 (one) tablet (5 mg total) by mouth daily . Patient not taking: Reported on 10/15/2024 . 05/13/22 Dre Araujo, RODRIGUE simethicone (GAS-X Extra Strength) 125 MG chewable tablet Chew and Swallow 1 (one) tablet (125 mg total) every 6 (six) hours as needed (gas/bloating) . Jamar Escobedo MD spironolactone (ALDACTONE) 25 MG tablet Take 2 (two) tablets (50 mg total) by mouth daily . 10/09/23 07/02/24 Carolyn Casiano MD HOSPITAL Infusions: HOSPITAL Scheduled Medications: aspirin 81 mg Oral QAM [START ON 10/17/2024] azithromycin 250 mg Oral Q24H buprenorphine HCL 4 mg Sublingual Daily buprenorphine HCL 8 mg Sublingual BID cholecalciferol (vitamin D3) 50,000 Units Oral Weekly diltiazem 240 mg Oral Daily enoxaparin (LOVENOX) injection 40 mg Subcutaneous Daily furosemide 40 mg Oral BID gabapentin 600 mg Oral 4x daily ipratropium-albuteroL 3 mL Inhalation Q4H CASSIUS melatonin 10 mg Oral Nightly mometasone-formoterol 2 puff Inhalation BID pantoprazole 20 mg Oral Daily predniSONE 40 mg Oral Daily spironolactone 50 mg Oral Daily traZODone 50 mg Oral Nightly HOSPITAL PRN Medications: acetaminophen, albuterol, magnesium hydroxide, ondansetron, [COMPLETED] Insert peripheral IV AND Saline lock IV AND sodium chloride (PF) AND sodium chloride 0.9 % OBJECTIVE: Physical Examination: BP (P) 127/69 Pulse (P) 83 Temp (P) 97.6 F (36.4 C) (Axillary) Resp (!) (P) 22 SpO2 (P) 100% ARMIJO: DNFC: Does Not Follow Commands MAULIK: Unable to Assess GENERAL: General Appearance: In NAD Neck: Supple Eyes: See pupils below Ears: See hearing below Respiratory Effort: Mild dyspnea on nasal cannula oxygen, history of COPD with exacerbation Extremities: Marked peripheral edema bilateral lower extremities with erythema and multiple nonhealed sores Skin: Multiple lower extremity leg sores MENTAL STATUS: Alertness, Attention Span & Concentration: Normal Language: Normal Speech: Normal Orientation: Normal Memory, Recent & Remote: Normal Fund of Knowledge: Normal CRANIAL NERVES: Grossly intact COORDINATION & GROSS MOTOR: Abnormal Movements: None Coordination: Normal Tone: Normal MOTOR - MUSCLE STRENGTH: Right Muscle Strength Left 5 Shoulder Abduction (Deltoid) 5 5 Elbow Flexion (Biceps) 5 5 Elbow Extension (Triceps) 5 5 Enamel Drier (Flexor Digitorum) 5 5 Finger Abduction (Interossei) 5 5 Hip Flexion (Iliopsoas) 5 5 Knee Extension (Quads) 5 5 Dorsiflexion (Anterior Tibialis) 5 5 Plantar Flexion (Gastrocnemius) 5 Right rib pain with palpation no bruising noted REFLEXES: Difficult to examine secondary to edema of the lower extremities SENSATION: Fine Touch: Normal to bilateral feet and thighs DATA REVIEWED: Labs: Lab Results Component Value Date NA 137 10/16/2024 [id number] 56.4 (H) 04/25/2022 INR 1.1 09/19/2023 HGB 10.6 (L) 10/16/2024 WBC 3.77 (L) 10/16/2024 PLT 116 (L) 10/16/2024 BUN 18 10/16/2024 CREATININE 0.66 10/16/2024 Imaging: MR Thoracic Spine Without Contrast Final Result 1. Compression fracture at T7 appears to be likely subacute. There is bone marrow edema throughout the vertebral body and approximately 55% decreased vertebral body height. No significant retropulsion of bone fragments into the canal. There is some mild disc bulge at T6-7 mildly effacing the ventral aspect of the thecal sac without spinal cord compression. 2. No other compression fractures. No epidural hematoma. 3. No spinal cord compression or abnormal signal in the thoracic spinal cord. [facility] [place] Workstation ID: [id number] CT Thoracic And Lumbar Spine Reconstructed Final Result 1. There is moderate central compression of the T7 vertebral body, new compared to 07/02/2024. No definite fracture lines are visualized. This could be a chronic and less likely acute/subacute compression fracture. If there is focal point tenderness or further concern, MRI should be obtained. 2. Stable chronic compression fractures at the L1 and L2 vertebral bodies. 3. No acute compression fracture in the remaining thoracic and lumbar spine. [facility] Workstation ID: [id number] CTA Pulm Art and CT Abd Pelvis with IV contrast Final Result 1. Suboptimal pulmonary artery opacification, but no evidence of pulmonary emboli or other acute thoracic findings. 2. Cirrhotic liver morphology similar to prior with stigmata of portal venous hypertension. 3. No acute intraabdominal findings otherwise. 4. New fracture of T7. Workstation ID: [id number] [id number] Tibia Fibula Left 2 Views Final Result 1. No acute fracture or dislocation of the pelvis or either tibia or fibula is seen. If there is concern for an occult injury of the pelvis, cross-sectional imaging is recommended. Otherwise, if pain persists, repeat radiographs are recommended in 7-10 days. [facility] Workstation ID: [id number] XR Tibia Fibula Right 2 Views Final Result 1. No acute fracture or dislocation of the pelvis or either tibia or fibula is seen. If there is concern for an occult injury of the pelvis, cross-sectional imaging is recommended. Otherwise, if pain persists, repeat radiographs are recommended in 7-10 days. [facility] Workstation ID: [id number] XR Pelvis 1 View (Standard) Final Result 1. No acute fracture or dislocation of the pelvis or either tibia or fibula is seen. If there is concern for an occult injury of the pelvis, cross-sectional imaging is recommended. Otherwise, if pain persists, repeat radiographs are recommended in 7-10 days. [facility] Workstation ID: [id number] XR Chest 1 View Final Result No acute cardiopulmonary process. Workstation ID: [id number] Cosigned by Mala Gardner MD at 10/16/2024 10:45 PM EST Associated attestation - Mala Gardner MD - 10/16/2024 10:45 PM EST I agree with the Nurse practitioner's/Physician golf player assistant's note and plan by Markie Hendrickson PA-C dated 10/16/2024 which I have reviewed and edited where appropriate. I have confirmed the physical exam findings and made appropriate changes. Patient is a 59 yo man who presents for COPD exacerbation in the setting of chronic respiratory failure. He has a known history of L1 and L2 compression fractures. The majority of his pain is there, but he has milder pain more superiorly and also along the right ribs in this area. On exam, he is neurologically intact. He is obese with venous stasis and multiple non-healing sores. He is on oxygen. I reviewed his images independently. There is a subacute fracture of T7. There is no significant retropulsion or central stenosis. There appears to be a hairline fracture of the right T6 rib (series 8, image 79). Given his multiple medical comorbidities, I would recommend a trial with a TLSO brace. This is to be worn when he is out of bed for > 15 minutes. He will need upright x-rays in the brace for reference. Associated Order(s): IP CONSULT TO TRAUMA SURGERY [facility] SURGICAL HISTORY & PHYSICAL/CONSULTATION NOTE ======== INJURIES: T7 vertebral body compression Bilateral leg pain ASSESSMENT & PLAN/ACTIVE MEDICAL PROBLEMS: T7 vertebral body compression CT with moderate central compression of the T7 vertebral body. No definite fracture lines are visualized. This could be a chronic and less likely acute/subacute compression fracture. +point tenderness, no focal deficits. Obtain MRI Thoracic spine Pain control, therapies when appropriate Acute Hypoxic Respiratory Failure History of COPD and asthma, does not utilize home oxygen, requiring NC in ED. CT PE study pending Maintain saturations > 88% Management per primary Bilateral leg pain Was just treated at his PCP for bilateral cellulitis with 10-day course of antibiotics which has been completed XR tib-fib R/L pending Opiate dependence Takes Subutex Fall Denies hitting his head or having any LOC Denies cervical spine pain to palpation XR L/R tib/fib pending UA/culture Therapies when appropriate INCIDENTAL FINDINGS: N/A. CHIEF COMPLAINT: Shortness of breath, back pain Notification Time: 2250 Arrival at Bedside: 2300 HISTORY OF PRESENT ILLNESS / INJURY (HPI): Carmen is a 59-year-old male with past medical history significant for COPD, diabetes, opiate dependence, hypertension, anxiety, asthma who presented to [facility] with a chief complaint of shortness of breath. The patient states that he was walking in from his car when his shortness of breath became so profound that he can no longer walk causing him to fall backwards. He denies hitting his head or having any loss of consciousness. He denied any cervical spine pain to palpation. He did report thoracic spine pain to palpation. CT imaging with moderate central compression of the T7 vertebral body without definite fracture line however given point tenderness, trauma was consulted for evaluation. Recommend medical admission for acute hypoxic respiratory failure. PAST MEDICAL HISTORY (PMH): Past Medical History: Diagnosis Date Anxiety Arrhythmia Arthritis Asthma COPD (chronic obstructive pulmonary disease) (HCC) Diabetes (HCC) Hypertension Opioid dependence (HCC) Secondary adrenal insufficiency 04/30/2022 left AMA 04/30/22 without treatment Past Surgical History: Procedure Laterality Date APPENDECTOMY ARTHROPLASTY KNEE TOTAL ROBOTIC ASSISTED Right 01/08/2020 Procedure: Right Total Knee Replacement Robotic; Surgeon: Sofía Dukes MD; Location: Main OR; Service: Ortho-Robotics DEBRIDEMENT WITH WOUND CLOSURE POSS SKIN GRAFT LOWER EXTR Right 06/03/2023 Procedure: RIGHT LATERAL LEG Debridement with VERSAJET; Surgeon: ALEXEY Radford DPM; Location: Main OR; Service: Podiatry FOOT SURGERY Left MANDIBLE FRACTURE SURGERY ORTHOPEDIC SURGERY Right knee SKIN GRAFT SPLIT THICKNESS LOWER EXTREMITY Right 08/05/2023 Procedure: RIGHT LOWER LEG SPLIT THICKNESS SKIN GRAFT; Surgeon: Cecilia Gonzales DPM; Location: Main OR; Service: Podiatry THORACIC DUCT LIGATION 01/15/2017 THORACIC DUCT LIGATION WOUND VAC Right 06/03/2023 Procedure: APPLICATION WOUND VAC; Surgeon: ALEXEY Radford DPM; Location: Main OR; Service: Podiatry Social History Tobacco Use Smoking status: Former Passive exposure: Current Smokeless tobacco: Current Types: Chew Vaping Use Vaping status: Never Used Substance Use Topics Alcohol use: Not Currently Drug use: Not Currently Types: Marijuana Family History Problem Relation Age of Onset Heart disease Mother Diabetes Mother MEDICATIONS: No current facility-administered medications on file prior to encounter. Current Outpatient Medications on File Prior to Encounter Medication Sig Dispense Refill meloxicam (MOBIC) 15 MG tablet Take 1 (one) tablet (15 mg total) by mouth daily . albuterol (PROVENTIL) 2.5 mg /3 mL (0.083 %) nebulizer solution Take 3 mL (2.5 mg total) by nebulization every 6 (six) hours as needed for wheezing . 75 mL 0 albuterol 90 mcg/actuation inhaler Inhale 2 (two) puffs every 6 (six) hours as needed for wheezing . 18 g 1 aspirin 81 MG EC tablet Take 1 (one) tablet (81 mg total) by mouth every morning . buprenorphine HCL (SUBUTEX) [address] 1 (one) tablet (8 mg total) under the tongue See Admin Instructions Fills # 75/30day supply (09/29/23) 1 tab bid and 0.5 tab at bedtime Reasons: opioid use disorder. Combivent Respimat 20-100 mcg/actuation Mist Inhale 1 (one) puff to 2 (two) puffs every 4 to 6 hours as needed . diltiazem (TIAZAC) 240 MG 24 hr capsule Take 1 (one) capsule (240 mg total) by mouth every morning . furosemide (LASIX) 40 MG tablet Take 1 (one) tablet (40 mg total) by mouth 2 (two) times a day . gabapentin (NEURONTIN) 600 MG tablet Take 1 (one) tablet (600 mg total) by mouth 4 (four) times a day . naloxone (NARCAN) 4 mg/actuation [place] Administer 1 spray into one nostril for known or suspected opioid overdose. If patient worsens or does not respond, may repeat in 2-3 minutes. . 2 each 1 pantoprazole (PROTONIX) 20 MG tablet Take 1 (one) tablet (20 mg total) by mouth daily Start: 01/09/20. 30 tablet 0 predniSONE (DELTASONE) 5 MG tablet Take 1 (one) tablet (5 mg total) by mouth daily . (Patient not taking: Reported on 10/15/2024 .) 30 tablet 3 simethicone (GAS-X Extra Strength) 125 MG chewable tablet Chew and Swallow 1 (one) tablet (125 mg total) every 6 (six) hours as needed (gas/bloating) . spironolactone (ALDACTONE) 25 MG tablet Take 2 (two) tablets (50 mg total) by mouth daily . 60 tablet 0 Symbicort 160-4.5 mcg/actuation inhaler Inhale 2 (two) puffs 2 (two) times a day . ALLERGIES: No Known Allergies REVIEW OF SYSTEMS: COVID19 Screen: Negative for fever, cough, SOB, exposure. Constitutional Symptoms: Negative for unexplained falls, weight loss Eyes: Negative for eye pain or vision changes Ears, Nose, Mouth, Throat: Negative for rhinorrhea, nasal pain, dysphagia, hoarseness Cardiovascular: Negative for chest pain, orthopnea, edema Respiratory: + Cough, shortness of breath Gastrointestinal: Negative for abdominal pain, nausea, vomiting, diarrhea Genitourinary: Negative for dysuria, hematuria Musculoskeletal: Negative for pain, joint edema Skin/Breast: Negative for rash, itching, lesions Neurological: Negative for paresthesia, paralysis, loss of bowel or bladder control, loss of consciousness Psychiatric: Negative for depression, anxiety, or suicidal ideations Endocrine: Negative for heat/cold intolerance, polydipsia, polyphagia, polyuria Hematologic/Lymphatic: Negative for anticoagulant use, antiplatelet use, family hx of clotting or bleeding disorders Allergic/Immunologic: Allergies reviewed, no use of immunosuppressants or active chemotherapy Other than the above items, the remainder of a complete review of systems is otherwise negative. PHYSICAL EXAM: BP (!) 146/96 Pulse 88 Temp 98.1 F (36.7 C) Resp 17 SpO2 100% There is no height or weight on file to calculate BMI. GENERAL: Appears age appropriate. No acute distress. NEUROLOGICAL: Alert and oriented X 3. Follows commands with extremities x4, equal strength. Pupils equal, round, reactive to light. No focal neurologic deficits noted. GCS = 15 Head Eyes Ear Nose Throat: Head: Atraumatic, normocephalic. Eyes: Conjunctivae/sclerae/corneas clear. Ears: External ear normal. Hearing within normal limits for patient. No drainage. Nose: nares normal, septum midline, no drainage or nasal tenderness. Throat: phonation normal Neck: Supple, trachea midline, no midline tenderness, step offs, bony crepitus. CARDIOVASCULAR: Regular rate and rhythm. 2+ peripheral BLE edema. 2+ pulses radial/DP/PT bilaterally. RESPIRATORY: Lungs, clear to auscultation bilaterally. Respiratory effort mildly labored with minimal use of accessory muscles. NC. ABDOMINAL: Rounded, soft, nontender, non distended. No guarding or peritoneal signs. GENITOURINARY: Normal genitalia for age without lesion or trauma. Rectal exam - defer MUSCULOSKELETAL: Extremities atraumatic without gross deformity x4. ROM appropriate for age. No clubbing, cyanosis or joint edema. SPINE: +TTP thoracic spine SKIN: Vascular changes to bilateral lower extremities. Generalized ruddiness. IMAGING STUDIES: I have reviewed the following: All reviewed. LABORATORY STUDIES: Lab Results Component Value Date WBC 4.98 10/15/2024 HGB 10.9 (L) 10/15/2024 HCT 36.9 (L) 10/15/2024 MCV 70.6 (L) 10/15/2024 EXTMCV 73.5 (L) 05/05/2017 PLT 121 (L) 10/15/2024 RBC 5.23 10/15/2024 Lab Results Component Value Date GLUCOSE 139 (H) 10/15/2024 CALCIUM 8.8 10/15/2024 NA 141 10/15/2024 K 4.1 10/15/2024 CL 98 10/15/2024 BUN 16 10/15/2024 CREATININE 0.69 10/15/2024 Lab Results Component Value Date ALT 15 10/15/2024 AST 28 10/15/2024 ALKPHOS 89 10/15/2024 BILITOT 0.7 10/15/2024 Cosigned by Radames Maldonado MD at 10/16/2024 2:26 AM EST documented in this encounter [facility] 10-22-2024 Plan of care note Problem: Actual or potential alteration in health Goal: Absence of healthcare acquired conditions Outcome: Partially Met Goal: Knowledge of Interdisciplinary Plan of Care Outcome: Partially Met Goal: Knowledge of Enviroment Outcome: Partially Met Problem: Pressure Injury, Risk of Goal: Absence of pressure injury Outcome: Partially Met Problem: Pain Goal: Reduced pain sensation Outcome: Partially Met Goal: Control of acute pain to acceptable level Outcome: Partially Met Goal: Able to cope with pain Outcome: Partially Met Goal: Able to achieve maximum level of physical functioning Outcome: Partially Met Goal: Able to achieve maximum level of psychosocial functioning Outcome: Partially Met Problem: Falls, Risk of Goal: Absence of falls Outcome: Partially Met Goal: Absence of physical injury Outcome: Partially Met [facility] 10-21-2024 Note [facility] 10-21-2024 Note [facility] 10-21-2024 Plan of care note Problem: Actual or potential alteration in health Goal: Absence of healthcare acquired conditions Outcome: Partially Met Goal: Knowledge of Interdisciplinary Plan of Care Outcome: Partially Met Goal: Knowledge of Enviroment Outcome: Partially Met Problem: Pressure Injury, Risk of Goal: Absence of pressure injury Outcome: Partially Met Problem: Pain Goal: Reduced pain sensation Outcome: Partially Met Goal: Control of acute pain to acceptable level Outcome: Partially Met Goal: Able to cope with pain Outcome: Partially Met Goal: Able to achieve maximum level of physical functioning Outcome: Partially Met Goal: Able to achieve maximum level of psychosocial functioning Outcome: Partially Met [facility] 10-20-2024 Note [facility] 10-20-2024 Note [facility] 10-20-2024 Progress note Formatting of t his note might be different from the original. At 0515, this RN enters patient room to see TEDDY bandages on the floor. Patient stated that he removed them "because I was too hot". Patient refused TEDDY wraps to be put on. This RN removed soiled gauze on left leg wound and re-wrapped with kerlix. Patient educated about risk of infection. [facility] 10-19-2024 Plan of care note Problem: Actual or potential alteration in health Goal: Absence of healthcare acquired conditions Outcome: Partially Met Goal: Knowledge of Interdisciplinary Plan of Care Outcome: Partially Met Goal: Knowledge of Enviroment Outcome: Partially Met Problem: Pressure Injury, Risk of Goal: Absence of pressure injury Outcome: Partially Met Problem: Pain Goal: Reduced pain sensation Outcome: Partially Met Goal: Control of acute pain to acceptable level Outcome: Partially Met Goal: Able to cope with pain Outcome: Partially Met Goal: Able to achieve maximum level of physical functioning Outcome: Partially Met Goal: Able to achieve maximum level of psychosocial functioning Outcome: Partially Met [facility] 10-19-2024 Note Formatting of this n ote might be different from the original. PHYSICAL THERAPY VISIT VARIANCE NOTE Attempted to see patient at this time, but unable secondary to: Patient Unavailable (Patient politely stated he is waiting on provider for debridement of leg). Will follow up as appropriate. [facility] 10-19-2024 Note Formatting of this n ote might be different from the original. OCCUPATIONAL THERAPY VISIT VARIANCE NOTE Attempted to see patient at this time, but unable secondary to: Patient Unavailable (plans for debridement in the next hour). Will follow up as appropriate. [facility] 10-19-2024 Note [facility] 10-19-2024 Procedure note Procedure(s): SC DEBRIDEMENT SUBCUTANEOUS TISSUE 1ST 20 SQ CM/<; SC DEBRIDEMENT SUBCUTANEOUS TISSUE EA ADDL 20 SQ CM Podiatry Inpatient Progress Note Cecilia Gonzales DPM [facility] Patient: Carmen Gilman Date of : 1965 (59 y.o.) PCP: Ani Worley, ENVIRONMENTAL EMERGENCIES PLANNER ASSESSMENT Bilateral lower extremity venous stasis Left medial leg for-thickness ulcerations Right plantar foot ulcer Right midfoot collapse Diabetes mellitus Poor self-care PLAN: Patient was seen and evaluated Discussed all clinical findings Patient's left leg and right foot wounds are in need of excisional debridement to remove nonviable soft tissue and biofilm. This was performed using a #15 blade down to including subcutaneous tissue. Applied lidocaine jelly prior to debridement for pain control. Following debridement of ulcerations, wounds were measured as follows: -Right foot ulcer measuring 1.5 x 1.5 x 0.2 cm. -Left leg medial ulcerations measuring 9.0 x 3.0 x 0.2 cm. Following, applied Gavino to the wounds, 4 x 4's, Kerlix and Teddy bandage 4 inch from toes to knee. No further podiatric surgical intervention warranted at this time. Discussed importance of edema control using Teddy bandaging. Inpatient recommendations: Dressings as follows: Cleanse both legs with chlorhexadine brush. Apply ammonium lactate to both legs. Apply saline soaked 2x2 gauze to left leg ulcers and right foot ulcer. Secure with kerlix and TEDDY from base of toes to below knees Mobility/weightbearing: No restrictions OT/PT: Following Case management: Following Disposition/discharge: Okay to discharge per podiatry Discharge instructions from AVS: Pending SUBJECTIVE: Patient was seen in his room resting in bed. No new pedal complaints at this time. Denies fevers, chills, nausea, vomiting, chest pain, shortness of breath, or any other constitutional symptoms. OBJECTIVE: Podiatric Exam Vascular: DP and PT pulses are palpable 2 of 4. Capillary refill time is less than 3 seconds to distal digits. Skin temperature is warm to warm from proximal tibial tuberosity to distal digit. Significant bilateral lower extremity edema and pedal edema - improving Neurological: Gross sensation is diminished. Protective sensation is diminished. Babinski's is normal. Dermatologic: Bilateral lower extremities with dry xerotic skin and vascular discoloration. Left medial leg with superficial to partial-thickness venous stasis ulcer surrounded by crusted tissue. No ulceration present to right lower extremity. Right medial plantar foot with preulcerative callus/crusted ulceration. Onychomycosis Musculoskeletal: Compartments soft and compressible. No calf pain or fullness. Muscle strength 5/5. Right midfoot collapse without rocker-bottom morphology [facility] Work Phone: 10-19-2024 Procedure note Procedure(s): SC DEBRIDEMENT SUBCUTANEOUS TISSUE 1ST 20 SQ CM/<; SC DEBRIDEMENT SUBCUTANEOUS TISSUE EA ADDL 20 SQ CM Podiatry Inpatient Progress Note Cecilia Gonzales DPM [facility] Patient: Carmen Gilman Date of : 1965 (59 y.o.) PCP: Ani Worley, ENVIRONMENTAL EMERGENCIES PLANNER ASSESSMENT Bilateral lower extremity venous stasis Left medial leg for-thickness ulcerations Right plantar foot ulcer Right midfoot collapse Diabetes mellitus Poor self-care PLAN: Patient was seen and evaluated Discussed all clinical findings Patient's left leg and right foot wounds are in need of excisional debridement to remove nonviable soft tissue and biofilm. This was performed using a #15 blade down to including subcutaneous tissue. Applied lidocaine jelly prior to debridement for pain control. Following debridement of ulcerations, wounds were measured as follows: -Right foot ulcer measuring 1.5 x 1.5 x 0.2 cm. -Left leg medial ulcerations measuring 9.0 x 3.0 x 0.2 cm. Following, applied Gavino to the wounds, 4 x 4's, Kerlix and Teddy bandage 4 inch from toes to knee. No further podiatric surgical intervention warranted at this time. Discussed importance of edema control using Teddy bandaging. Inpatient recommendations: Dressings as follows: Cleanse both legs with chlorhexadine brush. Apply ammonium lactate to both legs. Apply saline soaked 2x2 gauze to left leg ulcers and right foot ulcer. Secure with kerlix and TEDDY from base of toes to below knees Mobility/weightbearing: No restrictions OT/PT: Following Case management: Following Disposition/discharge: Okay to discharge per podiatry Discharge instructions from AVS: Pending SUBJECTIVE: Patient was seen in his room resting in bed. No new pedal complaints at this time. Denies fevers, chills, nausea, vomiting, chest pain, shortness of breath, or any other constitutional symptoms. OBJECTIVE: Podiatric Exam Vascular: DP and PT pulses are palpable 2 of 4. Capillary refill time is less than 3 seconds to distal digits. Skin temperature is warm to warm from proximal tibial tuberosity to distal digit. Significant bilateral lower extremity edema and pedal edema - improving Neurological: Gross sensation is diminished. Protective sensation is diminished. Babinski's is normal. Dermatologic: Bilateral lower extremities with dry xerotic skin and vascular discoloration. Left medial leg with superficial to partial-thickness venous stasis ulcer surrounded by crusted tissue. No ulceration present to right lower extremity. Right medial plantar foot with preulcerative callus/crusted ulceration. Onychomycosis Musculoskeletal: Compartments soft and compressible. No calf pain or fullness. Muscle strength 5/5. Right midfoot collapse without rocker-bottom morphology documented in this encounter [facility] 10-19-2024 Note [facility] 10-19-2024 Hospital Discharge instructions Quyen Franco CNP - 10/19/2024 12:29 PM EST Orders per podiatry: Cleanse both legs and feet with soap and water. Apply ammonium lactate to bilateral legs and feet Apply Gavino to left leg ulcers Secure both legs with Kerlix and Teddy from base of toes to below knees Dressing change every 1 to 2 days Follow-up in wound clinic with Dr. Gonzales Quyen Franco CNP - 10/19/2024 12:29 PM EST Orders per podiatry: Cleanse both legs and feet with soap and water. Apply ammonium lactate to bilateral legs and feet Apply Gavino to left leg ulcers Secure both legs with Kerlix and Teddy from base of toes to below knees Dressing change every 1 to 2 days Follow-up in wound clinic with Dr. Gonzales The following attachments cannot be sent through Care Everywhere.Compression Fracture: Spine ([place])documented in this encounter [facility] 10-19-2024 Progress note Formatting of t his note might be different from the original. I have attempted to see patient twice today, initially with family in the room eating breakfast. Second time patient is seen in his room sleeping in recliner with legs elevated. The minute I enter the room he states he has to use the restroom and I need to come back. Return to patient's room a third time after discussing with Dr. Gonzales who will plan to debride left medial leg ulcers with the use of topical lidocaine. This was ordered. Discussed with patient plan for bedside debridement of the left leg with the use of topical lidocaine. Patient states he will be in bed awaiting debridement by Dr. Gonzales which is planned for 1 PM. Primary nurse aware. [facility] 10-19-2024 Plan of care note Problem: Actual or potential alteration in health Goal: Absence of healthcare acquired conditions Outcome: Partially Met Goal: Knowledge of Interdisciplinary Plan of Care Outcome: Partially Met Goal: Knowledge of Enviroment Outcome: Partially Met Problem: Pressure Injury, Risk of Goal: Absence of pressure injury Outcome: Partially Met Problem: Pain Goal: Reduced pain sensation Outcome: Partially Met Goal: Control of acute pain to acceptable level Outcome: Partially Met Goal: Able to cope with pain Outcome: Partially Met Goal: Able to achieve maximum level of physical functioning Outcome: Partially Met Goal: Able to achieve maximum level of psychosocial functioning Outcome: Partially Met [facility] 10-18-2024 Note [facility]24 Note Formatting of this n ote might be different from the original. PHYSICAL THERAPY VISIT VARIANCE NOTE Attempted to see patient at this time, but unable secondary to: Patient Unavailable (Patient politely requested PT return later today as he is trying to take a nap. Stated he has already walked in the hallway). Will follow up as appropriate. [facility] 10-18-2024 Progress note Formatting of t his note might be different from the original. Pt asked for assistance with his dressing changed previously. Pt sleeping at this time. Will check back on pt. [facility] 10-18-2024 Progress note Formatting of t his note is different from the original. Neurosurgery Sign-Off Consulting Neurosurgeon: Dr. Gardner, Neurosurgery [facility] Diagnosis: T7 compression fracture Plan: No acute neurosurgical intervention warranted Follow-up: With neurosurgery office in 4 weeks with repeat XR With PCP for any bone density testing, treatments if needed Medications: Per primary team. DVT Prophylaxis: Per primary team. Braces: TLSO when out of bed Activity: As tolerated With brace OOB. D/w Dr. Gardner Discharge instructions updated with appropriate follow-up. The Neurosurgery service will sign off at this time. Please re-consult or call our 14/03 on-call number at [phone] with any questions, concerns or clinical updates. [facility] 10-18-2024 Note [facility] 10-18-2024 Progress note Formatting of t his note might be different from the original. Patient ambulating in gilman without assistance or TSLO brace. Educated patient on need to wear brace while out of bed, patient refusing at this time. Patient assisted back to room, sitting in chair. [facility] 10-18-2024 Plan of care note Problem: Actual or potential alteration in health Goal: Absence of healthcare acquired conditions Outcome: Partially Met Goal: Knowledge of Interdisciplinary Plan of Care Outcome: Partially Met Goal: Knowledge of Enviroment Outcome: Partially Met Problem: Pressure Injury, Risk of Goal: Absence of pressure injury Outcome: Partially Met Problem: Pain Goal: Reduced pain sensation Outcome: Partially Met Goal: Control of acute pain to acceptable level Outcome: Partially Met Goal: Able to cope with pain Outcome: Partially Met Goal: Able to achieve maximum level of physical functioning Outcome: Partially Met Goal: Able to achieve maximum level of psychosocial functioning Outcome: Partially Met [facility] 10-17-2024 Consult note Associated Order (s): IP CONSULT TO [facility] 10/17/2024 3:41 pm- [facility] consult received to set up home health care services. Name of [facility] agency: Pending / Accepted (if [facility], include region) Accepted- [facility]/[employer] [facility] (orders) created for the following services: [or waiting for ____ (i.e wound care)] Yes- SN,PT,OT,RESIDENTIAL CHILD CARE COUNSELOR Verify demographics (residential address) [address] [place], [place] [id number] What is the primary number to reach you? [phone] Following physician will be: (list first name/last name) Ani Worley, ENVIRONMENTAL [employer]CI[employer]NER Do you have a caregiver and/or teachable caregiver (list relationship, name & phone #)? Lives alone with support from family members Estimated Discharge Date (NATI): 10/19 If discharge needs change, please reach out to liaison assigned on treatment team as hub is not notified of new consults once team is following. Thank you. [facility] 10-17-2024 Note [facility] 10-17-2024 Note [facility] 10-17-2024 Consult note Associated Order (s): IP CONSULT TO PODIATRY Images from the original note were not included. PODIATRY CONSULTATION Patient Name: Carmen Gilman. . Date of : 1965, 59 y.o.. Gender: male. Date of Consultation: 10/17/2024. Author: Quyen Franco CNP Thank you Arben Parrish MD for this consultation. We appreciate the opportunity to help care for your patient. Below you will find our findings and recommendations: Reason for Consultation: previous bilateral lower extremity cellulitis, erythema / edema, wounds Assessment: 59 y.o. male with the following pedal anomalies: Bilateral lower extremity venous stasis with some cellulitis Left medial leg partial-thickness ulcerations Right plantar foot ulcer concerning for abscess Right midfoot collapse Diabetes mellitus Poor self-care Plan: Patient was seen and evaluated at the bedside, I discussed the findings with the patient. CRP pending, ESR 49. WBC 4.31. Hemoglobin A1c 6.2 Wound culture ordered of left leg Right foot MRI: Patient was unable to complete the entirety of the study. Soft tissue ulceration over the plantar aspect of the medial cuneiform without evidence of underlying osteomyelitis or abscess noted ABIs triphasic throughout with no evidence of small vessel disease at the transmetatarsal level of either foot Dressings as follows: Cleanse both legs with chlorhexadine brush. Apply ammonium lactate to both legs. Apply saline soaked 2x2 gauze to left leg ulcers and right foot ulcer. Secure with kerlix and TEDDY from base of toes to below knees Elevate legs as much as possible to decrease swelling No immediate podiatric surgical plans. Continue wound care and leg elevation, continue treatment of underlying conditions. We will follow History of Present Illness: Patient is a 59 y.o. male consulted to the Podiatry Service for leg ulcers. Patient presented to the ED with worsening shortness of breath over the past 10 days. Patient also reports a fall yesterday as well as increased drainage of both legs. Patient administered albuterol to himself 23 times the day of admission. ED intake note mentions patient following outpatient for his lower extremities, however he has not been seen by our service since December 2023. Patient states no one is doing dressing changes for him and he has not seen anyone for his legs in quite some time. Patient had followed previously with Dr. Gonzales for right lower extremity ulcers, undergoing Versajet debridement in May 2023 followed by split-thickness skin graft July 2023. Right lateral leg full-thickness ulcer has remained closed for some time. Left medial leg ulceration continues, although this is different than the ulceration he had previously. At some point patient developed right foot pain and was seen by Dr. Radford. Noted to have midfoot collapse. Patient was offered the option of reconstruction versus AFO bracing. Patient chose bracing. He does not wear this consistently. On exam he denies any new pedal injury or trauma, but does admit to poor self-care. Past medical history significant for anxiety, COPD, diabetes, hypertension, history of opioid dependence on Suboxone. Patient is a previous smoker Estimated body mass index is 44.76 kg/m as calculated from the following: Height as of 10/16/24: 6'. Weight as of this encounter: 149.7 kg (330 lb). Allergies: No Known Allergies. Scheduled Meds: aspirin 81 mg Oral QAM azithromycin 250 mg Oral Q24H buprenorphine HCL 4 mg Sublingual Daily buprenorphine HCL 8 mg Sublingual BID cholecalciferol (vitamin D3) 50,000 Units Oral Weekly diltiazem 240 mg Oral Daily enoxaparin (LOVENOX) injection 40 mg Subcutaneous Daily furosemide 40 mg Oral BID gabapentin 600 mg Oral 4x daily ipratropium-albuteroL 3 mL Inhalation Q4H CASSIUS lidocaine 1 patch Transdermal Daily melatonin 10 mg Oral Nightly mometasone-formoterol 2 puff Inhalation BID nicotine 1 patch Transdermal Daily pantoprazole 20 mg Oral Daily predniSONE 40 mg Oral Daily spironolactone 50 mg Oral Daily traZODone 50 mg Oral Nightly . Continuous Infusions: . PRN Meds: acetaminophen, albuterol, magnesium hydroxide, ondansetron, [COMPLETED] Insert peripheral IV AND Saline lock IV AND sodium chloride (PF) AND sodium chloride 0.9 %. Medical History: Past Medical History: Diagnosis Date Anxiety Arrhythmia Arthritis Asthma COPD (chronic obstructive pulmonary disease) (HCC) Diabetes (HCC) Hypertension Opioid dependence (HCC) Secondary adrenal insufficiency 04/30/2022 left AMA 04/30/22 without treatment . Surgical History: Past Surgical History: Procedure Laterality Date APPENDECTOMY ARTHROPLASTY KNEE TOTAL ROBOTIC ASSISTED Right 01/08/2020 Procedure: Right Total Knee Replacement Robotic; Surgeon: Sofía Dukes MD; Location: Main OR; Service: Ortho-Robotics DEBRIDEMENT WITH WOUND CLOSURE POSS SKIN GRAFT LOWER EXTR Right 06/03/2023 Procedure: RIGHT LATERAL LEG Debridement with VERSAJET; Surgeon: ALEXEY Radford DPM; Location: Main OR; Service: Podiatry FOOT SURGERY Left MANDIBLE FRACTURE SURGERY ORTHOPEDIC SURGERY Right knee SKIN GRAFT SPLIT THICKNESS LOWER EXTREMITY Right 08/05/2023 Procedure: RIGHT LOWER LEG SPLIT THICKNESS SKIN GRAFT; Surgeon: Cecilia Gonzales DPM; Location: Main OR; Service: Podiatry THORACIC DUCT LIGATION 01/15/2017 THORACIC DUCT LIGATION WOUND VAC Right 06/03/2023 Procedure: APPLICATION WOUND VAC; Surgeon: ALEXEY Radford DPM; Location: Main OR; Service: Podiatry . Social History: Social History Socioeconomic History Marital status: Single Tobacco Use Smoking status: Former Passive exposure: Current Smokeless tobacco: Current Types: Chew Vaping Use Vaping status: Never Used Substance and Sexual Activity Alcohol use: Not Currently Drug use: Not Currently Types: Marijuana Sexual activity: Not Currently Social History Narrative Merged History Encounter Merged History Encounter Social Drivers of Health Financial Resource Strain: Low Risk (07/03/2024) Overall Financial Resource Strain (CARDIA) Difficulty of Paying Living Expenses: Not very hard Food Insecurity: Food Insecurity Present (10/16/2024) Hunger Vital Sign Worried About Running Out of Food in the Last Year: Sometimes true Ran Out of Food in the Last Year: Sometimes true Transportation Needs: No Transportation Needs (10/16/2024) PRAPARE - Transportation Lack of Transportation (Medical): No Lack of Transportation (Non-Medical): No Housing Stability: Low Risk (10/16/2024) Housing Stability Vital Sign Unable to Pay for Housing in the Last Year: No Number of Times Moved in the Last Year: 1 Homeless in the Last Year: No Family History: Family History Problem Relation Age of Onset Heart disease Mother Diabetes Mother Review of Systems: Pertinent positives and negatives as mentioned above, otherwise full review of systems is negative unless mentioned below: Patient currently denies Nausea/Vomiting/Fever/Chills/Shor tness of Breath/Chest Pain. Physical Examination: BP 116/67 Pulse 80 Temp 98.1 F (36.7 C) Resp (!) 20 Wt (!) 149.7 kg (330 lb) SpO2 92% BMI 44.76 kg/m General Appearance: Alert, cooperative, short of breath, chronically ill, appears older than stated age. Podiatric Exam Vascular: DP and PT pulses are palpable 2 of 4. Capillary refill time is less than 3 seconds to distal digits. Skin temperature is warm to warm from proximal tibial tuberosity to distal digit. Significant bilateral lower extremity edema and pedal edema Neurological: Gross sensation is diminished. Protective sensation is diminished. Babinski's is normal. Dermatologic: Bilateral lower extremities with dry xerotic skin and significant vascular discoloration. Left medial leg with superficial to partial-thickness venous stasis ulcer surrounded by crusted tissue. No ulceration present to right lower extremity. Right medial plantar foot with preulcerative callus/crusted ulceration. Onychomycosis Musculoskeletal: Compartments soft and compressible. No calf pain or fullness. Muscle strength 5/5. Right midfoot collapse without rocker-bottom morphology L leg R leg R foot Laboratory Data: Lab Results Component Value Date WBC 4.31 (L) 10/17/2024 WBC 5.0 05/05/2017 HGB 9.7 (L) 10/17/2024 HGB 11.4 (L) 10/15/2024 HGB 11.6 (L) 05/05/2017 HCT 32.7 (L) 10/17/2024 HCT 35.1 (L) 10/15/2024 PLT 111 (L) 10/17/2024 PLT 122 (L) 05/05/2017 BUN 18 10/16/2024 BUN 18 05/05/2017 CREATININE 0.66 10/16/2024 CREATININE 0.68 05/05/2017 INR 1.1 09/19/2023 CRP 36.2 (H) 07/02/2024 SEDRATE 101 (H) 07/02/2024 HGBA1C 4.7 07/30/2023 HGBA1C 4.9 05/05/2017 URICACID 6.2 03/08/2018 Radiographs: MR Thoracic Spine Without Contrast Final Result by Enrique Carrasco MD (10/16/2024 [id number]) 1. Compression fracture at T7 appears to be likely subacute. There is bone marrow edema throughout the vertebral body and approximately 55% decreased vertebral body height. No significant retropulsion of bone fragments into the canal. There is some mild disc bulge at T6-7 mildly effacing the ventral aspect of the thecal sac without spinal cord compression. 2. No other compression fractures. No epidural hematoma. 3. No spinal cord compression or abnormal signal in the thoracic spinal cord. DMG/alt Workstation ID: [id number] CT Thoracic And Lumbar Spine Reconstructed Final Result by Jonathan Rodrigez MD (10/16/2024 0059) 1. There is moderate central compression of the T7 vertebral body, new compared to 07/02/2024. No definite fracture lines are visualized. This could be a chronic and less likely acute/subacute compression fracture. If there is focal point tenderness or further concern, MRI should be obtained. 2. Stable chronic compression fractures at the L1 and L2 vertebral bodies. 3. No acute compression fracture in the remaining thoracic and lumbar spine. EYY/mjr Workstation ID: [id number] CTA Pulm Art and CT Abd Pelvis with IV contrast Final Result by Fransisco Camilo MD (10/15/2024 [id number]) 1. Suboptimal pulmonary artery opacification, but no evidence of pulmonary emboli or other acute thoracic findings. 2. Cirrhotic liver morphology similar to prior with stigmata of portal venous hypertension. 3. No acute intraabdominal findings otherwise. 4. New fracture of T7. Workstation ID: [id number] Again, thank you for the opportunity to help care for your patient. Quyen Franco CNP Cosigned by Cecilia Gonzales DPM at 10/18/2024 8:46 AM EST Associated attestation - Cecilia Gonzales DPM - 10/18/2024 8:46 AM EST Images from the original note were not included. Patient was seen at bedside on 10/17/2024 with our nurse practitioner Karla Franco. I agree with her assessment and plan as outlined in the consultation note. Patient has bilateral lower extremity wounds that would benefit from bedside excisional debridement. Will perform this tomorrow 10/18/2024. Cecilia Gonzales DPM, MS Podiatric Physician & Surgeon [facility] 10-17-2024 Consult note Associated Order (s): IP CONSULT TO CARE MANAGEMENT Care Management Consult Note Date: 10/17/2024 Time: 2:46 PM Patient Name: Carmen Gilman Date of : 1965 Reason for Consult: Discharge Plan: Plan A: Home Health Care Services Plan B: Home Discharging Transportation Plan: Discharge Plan Status: pend medical readiness Assessment and Background Information: RN CM Assessment: Face to Face with pt for initial transition planning/care coordination assessment. RN CM introduced self and role, pt voices understanding and consents to assessment. Pt is A/Ox4 and answers all questions appropriately at this time. Pt is lying in bed in no distress on 2L nc. Care providers, pharmacy, and demographics verified/updated. Admitting Dx: COPD, resp failure PCP: [facility] Specialists: none [facility] Prescription Benefit: yes, pt states no concerns obtaining/affording meds but states is not compliant with meds at home. Pt states 'I don't what I should be taking, I need a nurse to come in and help me with that.' LW/HPOA: does not have LNOK: Calin Gilman, brother Living Arrangements: Pt lives alone in [facility] independent living apartments with no steps and states needs assistance with all ADL's. Transportation: Pt drives self and states no concerns with transportation. DME/HHC/SNF: Pt states no need for further DME. Pt states has had HHC in the past and would like referral for discharge. Pt states no preference on HHC agency and declines list at this time. Order to [facility] hub for SN/PT/OT/aide. Pt has been to [facility] and [facility] in the past and adamantly insists several times that he will not go back to a SNF. Pt states is in contact with a CM but unsure of their name/program. Pt is too young for [facility] so call to [place] waiver program, [employer], and they state pt was denied for [facility] care waiver [facility] in September. Pt is on disability. Pt does not smoke cigarettes or drink ETOH. Pt states no concerns with going home at time of dc and states no further questions/concerns/needs. Advised pt to ask for CM if any further question/concerns/needs arise, voices understanding. CM to follow. Pt Goal: Home w/ HHC Plan: Home w/ HHC, AAOA Living Arrangements: Alone Support Systems: Family members Assistance Needed: yes (HHC requested by patient) Type of Residence: Private residence Prior to Admission Home Care Services: No Patient expects to be discharged to:: Home Does the patient need discharge transport arranged?: No Current Home Equipment: Cane Holistic Assessment Medication adherence problem:: (!) Yes Barriers to medication adherence: Don't understand History of falls in last 6 months:: (!) Yes Family aware of the patient's advance care planning wishes:: No Do you have any cultural/spiritual connections or beliefs that would impact how we deliver your care?: No Chronic pain:: (!) Yes Location of chronic pain:: legs, back, ribs Chronic pain timing:: Intermittent Limitation of routine activities due to chronic pain:: Yes [facility] 10-17-2024 Note [facility] Plan of care note Problem: Actual or potential alteration in health Goal: Absence of healthcare acquired conditions Outcome: Partially Met Goal: Knowledge of Interdisciplinary Plan of Care Outcome: Partially Met Goal: Knowledge of Enviroment Outcome: Partially Met Problem: Pressure Injury, Risk of Goal: Absence of pressure injury Outcome: Partially Met Problem: Pain Goal: Reduced pain sensation Outcome: Partially Met Goal: Control of acute pain to acceptable level Outcome: Partially Met Goal: Able to cope with pain Outcome: Partially Met Goal: Able to achieve maximum level of physical functioning Outcome: Partially Met Goal: Able to achieve maximum level of psychosocial functioning Outcome: Partially Met [facility] 10-16-2024 Consult note Associated Order (s): IP CONSULT TO NEUROSURGERY Neurosurgery Inpatient Consult [facility] 10/16/2024 Radames Hendrickson PA-C [facility] Patient: Carmen Gilman Date of : 1965 (59 y.o.) Referring Provider: Refer to consult order in electronic medical record PCP: Ani Worley CNP ASSESSMENT/PLAN: MRI T spine reviewed, other images reviewed Acute/subacute T7 compression fracture, no retropulsion Compression fracture at T7 appears to be likely subacute. There is bone marrow edema throughout the vertebral body and approximately 55% decreased vertebral body height. No significant retropulsion of bone fragments into the canal. There is some mild disc bulge at T6-7 mildly effacing the ventral aspect of the thecal sac without spinal cord compression. 2. No other compression fractures. No epidural hematoma. 3. No spinal cord compression or abnormal signal in the thoracic spinal cord Probable right sixth rib fracture seen on CT COPD exacerbation with chronic respiratory failure Morbid obesity Lower extremity edema with multiple nonhealing leg sores No urgent neurosurgical interventions No diet restrictions per neurosurgery Plan to order TLSO brace to be worn when out of bed when safe pending resp status Do not see the need for further imaging Admitted with these risk variables:None. Please see assessment and plan for further details. SUBJECTIVE: Chief Complaint/Reason for Consult: Acute T7 compression fracture after a fall Time of arrival to bedside: 9:55pm Informant(s): Patient History of Present Illness: Carmen Gilman is a 59 y.o. adult who 59 yo man who presented to ED after a fall and found to have an acute T7 compression fracture. Patient had a fall several weeks ago when he slipped on some water in the kitchen and landed on his right side. His lower back and his right side have been very painful since then. He believes his fall more recently today exacerbated his pain. He tripped and fell over a cement block and landed on his back. He denies any numbness or tingling in his legs. He denies any changes in his bowel and bladder control. He states his pain is in his mid to lower lumbar region in his lower thoracic region. He denies any neck pain. He denies any numbness tingling or weakness in his arms or hands. He has significant difficulty breathing and taking deep inspiration secondary to his right rib pain. His right rib pain is actually more painful than his back today. He has past significant history of liver cirrhosis portal hypertension esophageal varices hepatitis C chronic thrombocytopenia COPD chronic anemia. Review of Systems: Shortness of breath, right rib pain, mid low back pain, leg swelling, leg sores, further review of systems see hospitalist H&P Past Medical History: has a past medical history of Anxiety, Arrhythmia, Arthritis, Asthma, COPD (chronic obstructive pulmonary disease) (HCC), Diabetes (HCC), Hypertension, Opioid dependence (HCC), and Secondary adrenal insufficiency (04/30/2022). Past Surgical History: has a past surgical history that includes Thoracic duct ligation (01/15/2017); ARTHROPLASTY KNEE TOTAL ROBOTIC (Right, 01/08/2020); orthopedic surgery (Right); Mandible fracture surgery; Appendectomy; Foot surgery (Left); Thoracic duct ligation; Debridement With Wound Closure Poss Skin Graft Lower Extr (Right, 06/03/2023); Wound Vac (Right, 06/03/2023); and Skin Graft Split Thickness Lower Extremity (Right, 08/05/2023). Social History: reports that he has quit smoking. He has been exposed to tobacco smoke. His smokeless tobacco use includes chew. He reports that he does not currently use alcohol. He reports that he does not currently use drugs after having used the following drugs: Marijuana. Family History: Noncontributory to this neurosurgical evaluation Additional History Comments: None Allergies: has No Known Allergies. HOME Medications: Prior to Admission medications Medication Sig Start Date End Date Taking? Authorizing Provider albuterol 90 mcg/actuation inhaler Inhale 2 (two) puffs every 6 (six) hours as needed for wheezing . 07/04/24 10/16/24 Yes Cameron Vargas MD buprenorphine HCL (SUBUTEX) [address] 2.5 tablets under the tongue daily Reasons: opioid use disorder. Yes Jamar Escobedo MD diltiazem (TIAZAC) 240 MG 24 hr capsule Take 1 (one) capsule (240 mg total) by mouth every morning . 09/03/20 Yes Jamar Escobedo MD furosemide (LASIX) 40 MG tablet Take 1 (one) tablet (40 mg total) by mouth 2 (two) times a day . Yes Jamar Escobedo MD gabapentin (NEURONTIN) 600 MG tablet Take 1 (one) tablet (600 mg total) by mouth 4 (four) times a day . 05/13/23 Yes Jamar Escobedo MD ipratropium-albuteroL (DUO-NEB) 0.5-2.5 mg/3 ml nebulizer Take 3 mL by nebulization 4 (four) times a day as needed for wheezing or shortness of breath . Yes Jamar Escobedo MD meloxicam (MOBIC) 15 MG tablet Take 1 (one) tablet (15 mg total) by mouth daily . 10/05/24 Yes Jamar Escobedo MD naloxone (NARCAN) 4 mg/actuation [place] Administer 1 spray into one nostril for known or suspected opioid overdose. If patient worsens or does not respond, may repeat in 2-3 minutes. . 06/09/23 Yes Brody Newman MD Symbicort 160-4.5 mcg/actuation inhaler Inhale 2 (two) puffs 2 (two) times a day . 09/17/21 Yes Jamar Escobedo MD albuterol (PROVENTIL) 2.5 mg /3 mL (0.083 %) nebulizer solution Take 3 mL (2.5 mg total) by nebulization every 6 (six) hours as needed for wheezing . 04/03/19 01/17/24 Kinsey Ignacio MD aspirin 81 MG EC tablet Take 1 (one) tablet (81 mg total) by mouth every morning . 09/03/20 Jamar Escobedo MD Combivent Respimat 20-100 mcg/actuation Mist Inhale 1 (one) puff to 2 (two) puffs every 4 to 6 hours as needed . 04/18/21 Jamar Escobedo MD pantoprazole (PROTONIX) 20 MG tablet Take 1 (one) tablet (20 mg total) by mouth daily Start: 01/09/20. 01/09/20 07/02/24 Sofía Dukes MD predniSONE (DELTASONE) 5 MG tablet Take 1 (one) tablet (5 mg total) by mouth daily . Patient not taking: Reported on 10/15/2024 . 05/13/22 Dre Araujo, RODRIGUE simethicone (GAS-X Extra Strength) 125 MG chewable tablet Chew and Swallow 1 (one) tablet (125 mg total) every 6 (six) hours as needed (gas/bloating) . Jamar Escobedo MD spironolactone (ALDACTONE) 25 MG tablet Take 2 (two) tablets (50 mg total) by mouth daily . 10/09/23 07/02/24 Carolyn Casiano MD HOSPITAL Infusions: HOSPITAL Scheduled Medications: aspirin 81 mg Oral QAM [START ON 10/17/2024] azithromycin 250 mg Oral Q24H buprenorphine HCL 4 mg Sublingual Daily buprenorphine HCL 8 mg Sublingual BID cholecalciferol (vitamin D3) 50,000 Units Oral Weekly diltiazem 240 mg Oral Daily enoxaparin (LOVENOX) injection 40 mg Subcutaneous Daily furosemide 40 mg Oral BID gabapentin 600 mg Oral 4x daily ipratropium-albuteroL 3 mL Inhalation Q4H CASSIUS melatonin 10 mg Oral Nightly mometasone-formoterol 2 puff Inhalation BID pantoprazole 20 mg Oral Daily predniSONE 40 mg Oral Daily spironolactone 50 mg Oral Daily traZODone 50 mg Oral Nightly HOSPITAL PRN Medications: acetaminophen, albuterol, magnesium hydroxide, ondansetron, [COMPLETED] Insert peripheral IV AND Saline lock IV AND sodium chloride (PF) AND sodium chloride 0.9 % OBJECTIVE: Physical Examination: BP (P) 127/69 Pulse (P) 83 Temp (P) 97.6 F (36.4 C) (Axillary) Resp (!) (P) 22 SpO2 (P) 100% ARMIJO: DNFC: Does Not Follow Commands MAULIK: Unable to Assess GENERAL: General Appearance: In NAD Neck: Supple Eyes: See pupils below Ears: See hearing below Respiratory Effort: Mild dyspnea on nasal cannula oxygen, history of COPD with exacerbation Extremities: Marked peripheral edema bilateral lower extremities with erythema and multiple nonhealed sores Skin: Multiple lower extremity leg sores MENTAL STATUS: Alertness, Attention Span & Concentration: Normal Language: Normal Speech: Normal Orientation: Normal Memory, Recent & Remote: Normal Fund of Knowledge: Normal CRANIAL NERVES: Grossly intact COORDINATION & GROSS MOTOR: Abnormal Movements: None Coordination: Normal Tone: Normal MOTOR - MUSCLE STRENGTH: Right Muscle Strength Left 5 Shoulder Abduction (Deltoid) 5 5 Elbow Flexion (Biceps) 5 5 Elbow Extension (Triceps) 5 5 Enamel Drier (Flexor Digitorum) 5 5 Finger Abduction (Interossei) 5 5 Hip Flexion (Iliopsoas) 5 5 Knee Extension (Quads) 5 5 Dorsiflexion (Anterior Tibialis) 5 5 Plantar Flexion (Gastrocnemius) 5 Right rib pain with palpation no bruising noted REFLEXES: Difficult to examine secondary to edema of the lower extremities SENSATION: Fine Touch: Normal to bilateral feet and thighs DATA REVIEWED: Labs: Lab Results Component Value Date NA 137 10/16/2024 GAJ1GCR 56.4 (H) 04/25/2022 INR 1.1 09/19/2023 HGB 10.6 (L) 10/16/2024 WBC 3.77 (L) 10/16/2024 PLT 116 (L) 10/16/2024 BUN 18 10/16/2024 CREATININE 0.66 10/16/2024 Imaging: MR Thoracic Spine Without Contrast Final Result 1. Compression fracture at T7 appears to be likely subacute. There is bone marrow edema throughout the vertebral body and approximately 55% decreased vertebral body height. No significant retropulsion of bone fragments into the canal. There is some mild disc bulge at T6-7 mildly effacing the ventral aspect of the thecal sac without spinal cord compression. 2. No other compression fractures. No epidural hematoma. 3. No spinal cord compression or abnormal signal in the thoracic spinal cord. [facility] [place] Workstation ID: [id number] CT Thoracic And Lumbar Spine Reconstructed Final Result 1. There is moderate central compression of the T7 vertebral body, new compared to 07/02/2024. No definite fracture lines are visualized. This could be a chronic and less likely acute/subacute compression fracture. If there is focal point tenderness or further concern, MRI should be obtained. 2. Stable chronic compression fractures at the L1 and L2 vertebral bodies. 3. No acute compression fracture in the remaining thoracic and lumbar spine. [facility] Workstation ID: [id number] CTA Pulm Art and CT Abd Pelvis with IV contrast Final Result 1. Suboptimal pulmonary artery opacification, but no evidence of pulmonary emboli or other acute thoracic findings. 2. Cirrhotic liver morphology similar to prior with stigmata of portal venous hypertension. 3. No acute intraabdominal findings otherwise. 4. New fracture of T7. Workstation ID: [id number] Tibia Fibula Left 2 Views Final Result 1. No acute fracture or dislocation of the pelvis or either tibia or fibula is seen. If there is concern for an occult injury of the pelvis, cross-sectional imaging is recommended. Otherwise, if pain persists, repeat radiographs are recommended in 7-10 days. [facility] Workstation ID: [id number] [id number] Tibia Fibula Right 2 Views Final Result 1. No acute fracture or dislocation of the pelvis or either tibia or fibula is seen. If there is concern for an occult injury of the pelvis, cross-sectional imaging is recommended. Otherwise, if pain persists, repeat radiographs are recommended in 7-10 days. [facility] Workstation ID: [id number] [id number] Pelvis 1 View (Standard) Final Result 1. No acute fracture or dislocation of the pelvis or either tibia or fibula is seen. If there is concern for an occult injury of the pelvis, cross-sectional imaging is recommended. Otherwise, if pain persists, repeat radiographs are recommended in 7-10 days. [facility] Workstation ID: [id number] XR Chest 1 View Final Result No acute cardiopulmonary process. Workstation ID: [id number] Cosigned by Mala Gardner MD at 10/16/2024 10:45 PM EST Associated attestation - Mala Gardner MD - 10/16/2024 10:45 PM EST I agree with the Nurse practitioner's/Physician golf player assistant's note and plan by Markie Hendrickson PA-C dated 10/16/2024 which I have reviewed and edited where appropriate. I have confirmed the physical exam findings and made appropriate changes. Patient is a 59 yo man who presents for COPD exacerbation in the setting of chronic respiratory failure. He has a known history of L1 and L2 compression fractures. The majority of his pain is there, but he has milder pain more superiorly and also along the right ribs in this area. On exam, he is neurologically intact. He is obese with venous stasis and multiple non-healing sores. He is on oxygen. I reviewed his images independently. There is a subacute fracture of T7. There is no significant retropulsion or central stenosis. There appears to be a hairline fracture of the right T6 rib (series 8, image 79). Given his multiple medical comorbidities, I would recommend a trial with a TLSO brace. This is to be worn when he is out of bed for > 15 minutes. He will need upright x-rays in the brace for reference. [facility] Work Phone: 10-16-2024 Progress note Formatting of t his note might be different from the original. 2020 Patient educated on compression stocking orders, continuous pulse ox, and cardiac monitoring. Patient declines all at this time, asking RN to contact doctor about "injectable Lasix". Marcelina OLVERA notified at this time. 2100 Patient agreeable to pulse ox and compression stockings. Declines continuous cardiac monitoring. 010 Patient requests left teddy wrap to be removed, states it is uncomfortable. Patient educated on order and advised to elevate legs. 06 Patient continuous to decline cardiac monitoring, states "my heart is fine". [facility] 10-16-2024 Plan of care note Problem: Actual or potential alteration in health Goal: Absence of healthcare acquired conditions Outcome: Partially Met Goal: Knowledge of Interdisciplinary Plan of Care Outcome: Partially Met Goal: Knowledge of Enviroment Outcome: Partially Met Problem: Pressure Injury, Risk of Goal: Absence of pressure injury Outcome: Partially Met Problem: Pain Goal: Reduced pain sensation Outcome: Partially Met Goal: Control of acute pain to acceptable level Outcome: Partially Met Goal: Able to cope with pain Outcome: Partially Met Goal: Able to achieve maximum level of physical functioning Outcome: Partially Met Goal: Able to achieve maximum level of psychosocial functioning Outcome: Partially Met [facility] 10-16-2024 Progress note Formatting of t his note might be different from the original. Tried to complete 4 eyes assessment. Patient refusing hospital gown, wants to wear his own clothes. This RN and Rosaline MENDOZA explained the 4 eyes assessment, patient replied "I only have my legs that are open, you can look at those." Both Rosaline MENDOZA and Monica RN checked B/L legs, and arms. [facility] 10-16-2024 Emergency department Note Report called to floor. [facility] 10-16-2024 Emergency department Note Report called to floor. Bed: 47 Expected date: Expected time: Means of arrival: Comments: 19 Hourly rounding assessment completed on the patient. [x] Patient updated on plan of care [x] All comfort needs addressed [x] Patient updated on duration of visit All questions answered, patient denies further needs. Call light within reach. Hourly rounding assessment completed on the patient. [x] Patient updated on plan of care [x] All comfort needs addressed [x] Patient updated on duration of visit All questions answered, patient denies further needs. Call light within reach. Hourly rounding assessment completed on the patient. [x] Patient updated on plan of care [x] All comfort needs addressed [x] Patient updated on duration of visit All questions answered, patient denies further needs. Call light within reach. Hourly rounding assessment completed on the patient. [x] Patient updated on plan of care [x] All comfort needs addressed [x] Patient updated on duration of visit All questions answered, patient denies further needs. Call light within reach. Hourly rounding assessment completed on the patient. [x] Patient updated on plan of care [x] All comfort needs addressed [x] Patient updated on duration of visit All questions answered, patient denies further needs. Call light within reach. Hourly rounding assessment completed on the patient. [] Patient updated on plan of care [x] All comfort needs addressed [] Patient updated on duration of visit PT bedding and cords adjusted to comfort. PT urinal dumped and given back. Phone provided to PT. Lights out per request. PT voices no other needs at this time. Call light is in reach. Trauma SHIPPER AND RECEIVING Mery at the bedside for consult. Pt still refusing to wear BP cuff even for a moment to check his BP Hourly rounding assessment completed on the patient. [x] Patient updated on plan of care [x] All comfort needs addressed [x] Patient updated on duration of visit All questions answered, patient denies further needs. Call light within reach. Pt yelling out, this RN and RN Dede to the bedside. 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 Pt states that it fell onto his head. Small abrasion noted between patient's eyebrows, no bleeding noted at this time. Pt A&Ox4, resps even and unlabored, and no acute distress noted at this time. weight calculator Shelby and Dr Lozano notified. Will observe patient for [address] Lozano. Pt back from CT Pt refused toradol, stating "I want my tramadol or subutex". This RN will notify Dr Lozano. Pt back from CT and refusing to have BP cuff on. Pt refused CT; Dr Lozano aware. Pt to xray Associated Order(s): Critical Care; ECG 12 Lead (Now) [facility] EMERGENCY DEPARTMENT ATTENDING NOTE: NAME: Carmen Gilman CSN: [id number] 59 y.o. PCP: Ani Worley CNP History: Chief Complaint: Shortness of Breath HPI: 59-year-old male former smoker past medical history of hypertension diabetes COPD not on oxygen presents to the emergency department via EMS for evaluation of shortness of breath symptoms with associated dry cough that been progressively worsening over the past 10 days. Patient states he had a mechanical trip and fall today as well and landed on his back negative head/neck strike negative LOC GCS 15 negative thinners. Patient states that he has weeping legs on both sides that has been following outpatient for and was sent home on some antibiotics. Patient was found saturating 75% on room air and was given DuoNeb treatments prior to arrival. Patient not normally on oxygen. Patient states that he is given himself albuterol 23 times today. Patient denies any other symptoms at this time PMHx: Past Medical History: Diagnosis Date Anxiety Arrhythmia Arthritis Asthma COPD (chronic obstructive pulmonary disease) (HCC) Diabetes (HCC) Hypertension Opioid dependence (HCC) Secondary adrenal insufficiency 04/30/2022 left AMA 04/30/22 without treatment PMSx: Past Surgical History: Procedure Laterality Date APPENDECTOMY ARTHROPLASTY KNEE TOTAL ROBOTIC ASSISTED Right 01/08/2020 Procedure: Right Total Knee Replacement Robotic; Surgeon: Sofía Dukes MD; Location: Main OR; Service: Ortho-Robotics DEBRIDEMENT WITH WOUND CLOSURE POSS SKIN GRAFT LOWER EXTR Right 06/03/2023 Procedure: RIGHT LATERAL LEG Debridement with VERSAJET; Surgeon: ALEXEY Radford DPM; Location: Main OR; Service: Podiatry FOOT SURGERY Left MANDIBLE FRACTURE SURGERY ORTHOPEDIC SURGERY Right knee SKIN GRAFT SPLIT THICKNESS LOWER EXTREMITY Right 08/05/2023 Procedure: RIGHT LOWER LEG SPLIT THICKNESS SKIN GRAFT; Surgeon: Cecilia Gonzales DPM; Location: Main OR; Service: Podiatry THORACIC DUCT LIGATION 01/15/2017 THORACIC DUCT LIGATION WOUND VAC Right 06/03/2023 Procedure: APPLICATION WOUND VAC; Surgeon: ALEXEY Radford DPM; Location: Main OR; Service: Podiatry FAM. Hx: Family History Problem Relation Age of Onset Heart disease Mother Diabetes Mother SOC. Hx: Social History Socioeconomic History Marital status: Single Tobacco Use Smoking status: Former Passive exposure: Current Smokeless tobacco: Current Types: Chew Vaping Use Vaping status: Never Used Substance and Sexual Activity Alcohol use: Not Currently Drug use: Not Currently Types: Marijuana Sexual activity: Not Currently Social History Narrative Merged History Encounter Merged History Encounter Social Drivers of Health Financial Resource Strain: Low Risk (07/03/2024) Overall Financial Resource Strain (CARDIA) Difficulty of Paying Living Expenses: Not very hard Food Insecurity: Food Insecurity Present (07/03/2024) Hunger Vital Sign Worried About Running Out of Food in the Last Year: Sometimes true Ran Out of Food in the Last Year: Sometimes true Transportation Needs: No Transportation Needs (07/03/2024) PRAPARE - Transportation Lack of Transportation (Medical): No Lack of Transportation (Non-Medical): No Housing Stability: High Risk (07/03/2024) Housing Stability Vital Sign Unable to Pay for Housing in the Last Year: No Number of Times Moved in the Last Year: 3 Homeless in the Last Year: No MEDs: Previous Medications Medication Sig meloxicam (MOBIC) 15 MG tablet Take 1 (one) tablet (15 mg total) by mouth daily . albuterol (PROVENTIL) 2.5 mg /3 mL (0.083 %) nebulizer solution Take 3 mL (2.5 mg total) by nebulization every 6 (six) hours as needed for wheezing . albuterol 90 mcg/actuation inhaler Inhale 2 (two) puffs every 6 (six) hours as needed for wheezing . aspirin 81 MG EC tablet Take 1 (one) tablet (81 mg total) by mouth every morning . buprenorphine HCL (SUBUTEX) [address] 1 (one) tablet (8 mg total) under the tongue See Admin Instructions Fills # supply (09/29/23) 1 tab bid and 0.5 tab at bedtime Reasons: opioid use disorder. Combivent Respimat 20-100 mcg/actuation Mist Inhale 1 (one) puff to 2 (two) puffs every 4 to 6 hours as needed . diltiazem (TIAZAC) 240 MG 24 hr capsule Take 1 (one) capsule (240 mg total) by mouth every morning . furosemide (LASIX) 40 MG tablet Take 1 (one) tablet (40 mg total) by mouth 2 (two) times a day . gabapentin (NEURONTIN) 600 MG tablet Take 1 (one) tablet (600 mg total) by mouth 4 (four) times a day . naloxone (NARCAN) 4 mg/actuation [place] Administer 1 spray into one nostril for known or suspected opioid overdose. If patient worsens or does not respond, may repeat in 2-3 minutes. . pantoprazole (PROTONIX) 20 MG tablet Take 1 (one) tablet (20 mg total) by mouth daily Start: 01/09/20. predniSONE (DELTASONE) 5 MG tablet Take 1 (one) tablet (5 mg total) by mouth daily . (Patient not taking: Reported on 10/15/2024 .) simethicone (GAS-X Extra Strength) 125 MG chewable tablet Chew and Swallow 1 (one) tablet (125 mg total) every 6 (six) hours as needed (gas/bloating) . spironolactone (ALDACTONE) 25 MG tablet Take 2 (two) tablets (50 mg total) by mouth daily . Symbicort 160-4.5 mcg/actuation inhaler Inhale 2 (two) puffs 2 (two) times a day . ALL: No Known Allergies Physical Exam: Patient Vitals for the past 24 hrs: BP Temp Pulse Resp SpO2 10/15/24 2300 -- -- 88 17 100 % 10/15/242230 -- -- 79 18 100 % 10/15/242205 -- -- 93 17 96 % 10/15/242056 -- -- 85 17 98 % 10/15/242055 -- -- 82 17 99 % 10/15/242047 -- -- 81 17 100 % 10/15/242030 -- -- 87 15 -- 10/15/242006 -- -- 89 (!) 23 -- 10/15/24 1931 -- -- 92 13 99 % 10/15/241900 -- -- -- -- 100 % 10/15/241899 -- -- 85 18 100 % 10/15/24 1815 (!) 146/96 98.1 F (36.7 C) (!) 100 (!) 28 98 % Physical Exam Vitals and nursing note reviewed. Constitutional: General: He is awake. Appearance: He is obese. HENT: Head: Normocephalic and atraumatic. Nose: Nose normal. Eyes: General: Lids are normal. No scleral icterus. Cardiovascular: Rate and Rhythm: Regular rhythm. Tachycardia present. Pulmonary: Effort: Accessory muscle usage and respiratory distress present. Comments: Inspiratory expiratory wheezing bilaterally. Tachypneic. Saturating 94% on 5 L Skin: General: Skin is warm. Neurological: Mental Status: He is alert and oriented to person, place, and time. Laboratory & Radiological Imaging (if done): Labs Reviewed COMPREHENSIVE METABOLIC PANEL - Abnormal; Notable for the following components: Result Value Bicarbonate 33 (*) Glucose 139 (*) BUN/Creatinine Ratio 23.2 (*) All other components within normal limits Narrative: [facility] Laboratory Services has implemented the eGFR calculation approach that does not have a coefficient for race that conforms to the NKF-ASN Task Force Recommendations. TROPONIN - Abnormal; Notable for the following components: Delta Difference Troponin T 10 (*) All other components within normal limits D-DIMER, QUANTITATIVE - Abnormal; Notable for the following components: D-Dimer 13.56 (*) All other components within normal limits Narrative: A D-dimer concentration of <0.5 micrograms per milliliter FEU is considered a low probability for pulmonary embolus (PE) and deep venous thrombosis (DVT). Results of this test should always be interpreted in conjunction with the patient's medical history,clinical presentation, and other findings. Clinical diagnosis should not be based on the results of the D-dimer alone. POC VENOUS BLOOD GAS PANEL-PULM - RALS - Abnormal; Notable for the following components: pCO2, [place] 65.4 (*) Base Excess, [place] 9.7 (*) HCO3, [place] 37.3 (*) Hemoglobin, Blood Gas 11.4 (*) Hematocrit, Calculated 35.1 (*) Carboxyhemoglobin 2.7 (*) Glucose 134 (*) Chloride 96 (*) All other components within normal limits CBC WITH AUTO DIFFERENTIAL - Abnormal; Notable for the following components: Hemoglobin 10.9 (*) Hematocrit 36.9 (*) MCV 70.6 (*) MCH 20.8 (*) MCHC 29.5 (*) Platelets 121 (*) RDW - CV 16.8 (*) MPV 9.1 (*) Lymphocytes Abs 0.39 (*) All other components within normal limits MORPHOLOGY - Abnormal; Notable for the following components: Platelet Estimate Decreased (*) All other components within normal limits BLOOD CULTURE AEROBIC/ANAEROBIC - Normal BLOOD CULTURE AEROBIC/ANAEROBIC - Normal COVID-19/INFLUENZA A,B MOLECULAR - Normal MRSA DNA AMPLIFIED PROBE - Normal NT PRO BNP - Normal Narrative: Pride Study Cut-offs Rule In: < /= 50 Years >450 pg/mL 51 Years - 75 Years >900 pg/mL 76 Years - 99 Years >1800 pg/mL Rule Out: All patients <300 pg/mL CBC AND DIFFERENTIAL Narrative: The following orders were created for panel order CBC and Differential. Procedure Abnormality Status --------- ------ CBC Auto Differential[[id number]] Abnormal Final result CBC and Diff Morphology[[id number]] Abnormal Final result Please view results for these tests on the individual orders. TROPONIN OBTAIN VENOUS BLOOD GASES AND PERFORM CT Thoracic And Lumbar Spine Reconstructed Preliminary Result 1. There is moderate central compression of the T7 vertebral body, new compared to 07/02/2024. No definite fracture lines are visualized. This could be a chronic and less likely acute/subacute compression fracture. If there is focal point tenderness or further concern, MRI should be obtained. 2. Stable chronic compression fractures at the L1 and L2 vertebral bodies. 3. No acute compression fracture in the remaining thoracic and lumbar spine. [facility] Workstation ID: [id number] CTA Pulm Art and CT Abd Pelvis with IV contrast Final Result 1. Suboptimal pulmonary artery opacification, but no evidence of pulmonary emboli or other acute thoracic findings. 2. Cirrhotic liver morphology similar to prior with stigmata of portal venous hypertension. 3. No acute intraabdominal findings otherwise. 4. New fracture of T7. Workstation ID: [id number] [id number] Tibia Fibula Left 2 Views Preliminary Result 1. No acute fracture or dislocation of the pelvis or either tibia or fibula is seen. If there is concern for an occult injury of the pelvis, cross-sectional imaging is recommended. Otherwise, if pain persists, repeat radiographs are recommended in 7-[address] [facility] Workstation ID: [id number] XR Tibia Fibula Right 2 Views Preliminary Result 1. No acute fracture or dislocation of the pelvis or either tibia or fibula is seen. If there is concern for an occult injury of the pelvis, cross-sectional imaging is recommended. Otherwise, if pain persists, repeat radiographs are recommended in 7-[address] [facility] Workstation ID: [id number] XR Pelvis 1 View (Standard) Preliminary Result 1. No acute fracture or dislocation of the pelvis or either tibia or fibula is seen. If there is concern for an occult injury of the pelvis, cross-sectional imaging is recommended. Otherwise, if pain persists, repeat radiographs are recommended in 7-[address] [facility] Workstation ID: [id number] XR Chest 1 View Final Result No acute cardiopulmonary process. Workstation ID: [id number] Procedures: Critical Care Performed by: Jose Lozano MD Authorized by: Jose Lozano MD Total critical care time: 50 minutes Critical care was time spent personally by me on the following activities: examination of patient, pulse oximetry and re-evaluation of patient's condition. ECG 12 Lead (Now) Date/Time: 10/15/2024 7:21 PM Performed by: Jose Lozano MD Authorized by: Jose Lozano MD Interpreted by ED attending physician Rhythm: sinus rhythm BPM: 92 normal SC interval normal QRS interval Comments: Normal [place] not prolonged QRS not prolonged Qt<1/2 rr interval No STEMI nsr ED Course / Medical Decision Making: I did personally review Carmen's past medical history, surgical history, social history, as well as family history (when relevant). After reviewing the items above, I did look at previous medical documentation. Social conditions impacting the patients care are: Former smoker Some Differential Diagnoses Include: STEMI NSTEMI pneumonia pneumothorax COVID flu COPD Labs/Imaging: no pe. Compression fracture ED course: Patient presents to the emergency department for evaluation of shortness of breath symptoms most in line with COPD exacerbation. Patient tachypneic on exam and tachycardic. Patient with inspiratory and expiratory wheezing and accessory muscle use. Patient has already had multiple breathing treatments prior to arrival per patient with albuterol, and was given DuoNeb prior to arrival. Patient still with active work of breathing. Magnesium initiated. Ketamine initially ordered, though later canceled in light of congestive heart failure history. Of note, patient has a history of adrenal insufficiency. Decadron given for both COPD as well as possibility of adrenal insufficiency Patient with history of heart failure. Fluids deferred. Broad-spectrum antibiotics placed in light of patient meeting sepsis criteria Pt given medications with improvement of sx and vital signs. Discussed case with trauma service, who came to the bedside to evaluate the patient. Will admit for further management Shared decision making used: yes Code Status: Full . Clinical Impression: 1. Acute respiratory failure with hypoxia (HCC) 2. COPD exacerbation (HCC) 3. Cellulitis, unspecified cellulitis site 4. Sepsis, due to unspecified organism, unspecified whether acute organ dysfunction present (HCC) 5. Compression fracture of T7 vertebra, initial encounter ([facility]) Disposition: ED Disposition None Jose Lozano MD, MD ED Attending Physician [facility] Jose Lozano MD 10/15/24 8304 Pt to ED with c/c of shortness of breath. Onset all day worsening to now. PT wheezing, speaking in 2-3 words sentence. EMS reported patient was 75% on RA, increase to 98% on 2 lpm. Pt was given duoneb treatment via EMS. Pt also just finished antibiotics for leg infection. documented in this encounter [facility] 10-16-2024 Note [facility] 10-16-2024 Emergency department Note Bed: 47 Expected date: Expected time: Means of arrival: Comments: 19 [facility] 10-16-2024 Emergency department Note Hourly rounding assessment completed on the patient. [x] Patient updated on plan of care [x] All comfort needs addressed [x] Patient updated on duration of visit All questions answered, patient denies further needs. Call light within reach. [facility] 10-16-2024 Emergency department Note Hourly rounding assessment completed on the patient. [x] Patient updated on plan of care [x] All comfort needs addressed [x] Patient updated on duration of visit All questions answered, patient denies further needs. Call light within reach. [facility] 10-16-2024 Emergency department Note Hourly rounding assessment completed on the patient. [x] Patient updated on plan of care [x] All comfort needs addressed [x] Patient updated on duration of visit All questions answered, patient denies further needs. Call light within reach. [facility] 10-16-2024 History and physical [place] [facility] [place] [facility] Patient Name: Carmen Gilman : 1965 MR #: [id number] Admit Date: 10/15/2024 Physicians: Ani Worley CNP (Family); No ref. provider found (Referring) Carmen Gilman is a 59 y.o. adult patient of Ani Worley CNP with history of of COPD, diabetes mellitus, hypertension, hyperlipidemia, opiate dependence, anxiety disorder and arthritis presents with complaints of shortness of breath associated with some dry cough and had a mechanical fall today. Acute hypoxic respiratory failure Acute COPD exacerbation Requiring 2 L in the ED. COVID and influenza negative. MRSA probe negative. Chest x-ray reviewed nonacute. CTPA negative for pulm embolism although suboptimal opacification. Steroids, azithromycin, bronchodilators. Symbicort changed to Dulera. Incentive spirometer. Mechanical fall T7 vertebral body compression Fell backwards as he complains of progressive weakness. Denies hitting his head. No loss of consciousness. CT thoracolumbar spine reviewed. Moderate central compression of T7 likely chronic. MRI thoracic spine. Trauma surgery following. PT OT. Liver cirrhosis Portal hypertension Esophageal varices Hepatitis C Chronic thrombocytopenia CT abdomen pelvis shows cirrhotic liver morphology with stigmata of portal venous hypertension. No acute pathology. Continue Aldactone and Lasix. Has no extremity edema likely due to cirrhosis. Echo 05/31/2023 reviewed-EF 65 to 70%, diastolic function normal, RV chamber dimension normal, no significant valve disease. There is pulmonary hypertension RVSP 49. Compression stockings bilateral lower extremities. Hypertension Aldactone Lasix and diltiazem. Bilateral leg pain Recently treated for bilateral cellulitis with 10-day course of antibiotics per X-ray tib-fib and pelvis nonacute. Opiate dependence On Subutex. Residence prior to admission: house or apartment Was patient transferred from outlying hospital or ED no Quality Measures DVT Prophylaxis: lovenox Tavera Catheter: absent Medication Reconciliation: Verified Admitted with these risk variables:Acute Respiratory Failure. Please see assessment and plan for further details. Estimated Date of Discharge greater than 2 midnights Code Status Full Code; code status verified on 10/16/2024 with confirmed by patient medical records Chief Complaint SOB History of Present Illness This is a 59-year-old male with past medical history of COPD, diabetes mellitus, hypertension, hyperlipidemia, opiate dependence, anxiety disorder and arthritis presents with complaints of shortness of breath associated with some dry cough, progressively getting worse over past 7 to 10 days. Today he also had a mechanical fall where he tripped, denies loss of consciousness. He landed backwards but did not hit his head. Recently treated for cellulitis in bilateral lower extremities and treated for 10 days of antibiotics. He denies any chest pain palpitations at this time. Denies any abdominal pain nausea vomiting. No fevers or chills. Past Medical History Past Medical History: Diagnosis Date Anxiety Arrhythmia Arthritis Asthma COPD (chronic obstructive pulmonary disease) (HCC) Diabetes (HCC) Hypertension Opioid dependence (HCC) Secondary adrenal insufficiency 04/30/2022 left AMA 04/30/22 without treatment Past Surgical History Past Surgical History: Procedure Laterality Date APPENDECTOMY ARTHROPLASTY KNEE TOTAL ROBOTIC ASSISTED Right 01/08/2020 Procedure: Right Total Knee Replacement Robotic; Surgeon: Sofía Dukes MD; Location: Main OR; Service: Ortho-Robotics DEBRIDEMENT WITH WOUND CLOSURE POSS SKIN GRAFT LOWER EXTR Right 06/03/2023 Procedure: RIGHT LATERAL LEG Debridement with VERSAJET; Surgeon: ALEXEY Radford DPM; Location: Main OR; Service: Podiatry FOOT SURGERY Left MANDIBLE FRACTURE SURGERY ORTHOPEDIC SURGERY Right knee SKIN GRAFT SPLIT THICKNESS LOWER EXTREMITY Right 08/05/2023 Procedure: RIGHT LOWER LEG SPLIT THICKNESS SKIN GRAFT; Surgeon: Cecilia Gonzales DPM; Location: Main OR; Service: Podiatry THORACIC DUCT LIGATION 01/15/2017 THORACIC DUCT LIGATION WOUND VAC Right 06/03/2023 Procedure: APPLICATION WOUND VAC; Surgeon: ALEXEY Radford DPM; Location: Main OR; Service: Podiatry Family History Family History Problem Relation Age of Onset Heart disease Mother Diabetes Mother Social History Social History Tobacco Use Smoking Status Former Passive exposure: Current Smokeless Tobacco Current Types: Chew Social History Substance and Sexual Activity Alcohol Use Not Currently Social History Substance and Sexual Activity Drug Use Not Currently Types: Marijuana Allergy Information I have reviewed the patient's allergies. Patient has no known allergies. Home Medications Home medications were reviewed. Review Of Systems All relevant systems have been reviewed and are negative except as noted in HPI or below Physical Examination BP (!) 150/85 Pulse 82 Temp 98.1 F (36.7 C) Resp 18 SpO2 98% General Appearance: alert; acute on chronically ill appearing; in mild acute distress HEENT: Head- normocephalic; Eyes- EOMI, sclera anicteric; Throat- mucous membranes moist Cardiovascular: regular rate and rhythm; normal S1, S2; no murmurs, rubs, clicks or gallops; peripheral edema absent Respiratory: Wheezing appreciated bilaterally nasal cannula Abdomen: soft, non-tender, non-distended Neurological: oriented x 3; normal speech; no focal findings or movement disorder noted Musculoskeletal: no significant deformity or tenderness to palpation Skin: normal coloration Psych: normal mood and affect [facility] 10-16-2024 History and physical note [facility] [place] [facility] Patient Name: Carmen Gilman : 1965 MR #: [id number] Admit Date: 10/15/2024 Physicians: Ani Worley CNP (Family); No ref. provider found (Referring) Carmen Gilman is a 59 y.o. adult patient of Ani Worley CNP with history of of COPD, diabetes mellitus, hypertension, hyperlipidemia, opiate dependence, anxiety disorder and arthritis presents with complaints of shortness of breath associated with some dry cough and had a mechanical fall today. Acute hypoxic respiratory failure Acute COPD exacerbation Requiring 2 L in the ED. COVID and influenza negative. MRSA probe negative. Chest x-ray reviewed nonacute. CTPA negative for pulm embolism although suboptimal opacification. Steroids, azithromycin, bronchodilators. Symbicort changed to Dulera. Incentive spirometer. Mechanical fall T7 vertebral body compression Fell backwards as he complains of progressive weakness. Denies hitting his head. No loss of consciousness. CT thoracolumbar spine reviewed. Moderate central compression of T7 likely chronic. MRI thoracic spine. Trauma surgery following. PT OT. Liver cirrhosis Portal hypertension Esophageal varices Hepatitis C Chronic thrombocytopenia CT abdomen pelvis shows cirrhotic liver morphology with stigmata of portal venous hypertension. No acute pathology. Continue Aldactone and Lasix. Has no extremity edema likely due to cirrhosis. Echo 05/31/2023 reviewed-EF 65 to 70%, diastolic function normal, RV chamber dimension normal, no significant valve disease. There is pulmonary hypertension RVSP 49. Compression stockings bilateral lower extremities. Hypertension Aldactone Lasix and diltiazem. Bilateral leg pain Recently treated for bilateral cellulitis with 10-day course of antibiotics per X-ray tib-fib and pelvis nonacute. Opiate dependence On Subutex. Residence prior to admission: house or apartment Was patient transferred from outlying hospital or ED no Quality Measures DVT Prophylaxis: lovenox Tavera Catheter: absent Medication Reconciliation: Verified Admitted with these risk variables:Acute Respiratory Failure. Please see assessment and plan for further details. Estimated Date of Discharge greater than 2 midnights Code Status Full Code; code status verified on 10/16/2024 with confirmed by patient medical records Chief Complaint SOB History of Present Illness This is a 59-year-old male with past medical history of COPD, diabetes mellitus, hypertension, hyperlipidemia, opiate dependence, anxiety disorder and arthritis presents with complaints of shortness of breath associated with some dry cough, progressively getting worse over past 7 to 10 days. Today he also had a mechanical fall where he tripped, denies loss of consciousness. He landed backwards but did not hit his head. Recently treated for cellulitis in bilateral lower extremities and treated for 10 days of antibiotics. He denies any chest pain palpitations at this time. Denies any abdominal pain nausea vomiting. No fevers or chills. Past Medical History Past Medical History: Diagnosis Date Anxiety Arrhythmia Arthritis Asthma COPD (chronic obstructive pulmonary disease) (HCC) Diabetes (HCC) Hypertension Opioid dependence (HCC) Secondary adrenal insufficiency 04/30/2022 left AMA 04/30/22 without treatment Past Surgical History Past Surgical History: Procedure Laterality Date APPENDECTOMY ARTHROPLASTY KNEE TOTAL ROBOTIC ASSISTED Right 01/08/2020 Procedure: Right Total Knee Replacement Robotic; Surgeon: Sofía Dukes MD; Location: Main OR; Service: Ortho-Robotics DEBRIDEMENT WITH WOUND CLOSURE POSS SKIN GRAFT LOWER EXTR Right 06/03/2023 Procedure: RIGHT LATERAL LEG Debridement with VERSAJET; Surgeon: ALEXEY Radford DPM; Location: Main OR; Service: Podiatry FOOT SURGERY Left MANDIBLE FRACTURE SURGERY ORTHOPEDIC SURGERY Right knee SKIN GRAFT SPLIT THICKNESS LOWER EXTREMITY Right 08/05/2023 Procedure: RIGHT LOWER LEG SPLIT THICKNESS SKIN GRAFT; Surgeon: Cecilia Gonzales DPM; Location: Main OR; Service: Podiatry THORACIC DUCT LIGATION 01/15/2017 THORACIC DUCT LIGATION WOUND VAC Right 06/03/2023 Procedure: APPLICATION WOUND VAC; Surgeon: ALEXEY Radford DPM; Location: Main OR; Service: Podiatry Family History Family History Problem Relation Age of Onset Heart disease Mother Diabetes Mother Social History Social History Tobacco Use Smoking Status Former Passive exposure: Current Smokeless Tobacco Current Types: Chew Social History Substance and Sexual Activity Alcohol Use Not Currently Social History Substance and Sexual Activity Drug Use Not Currently Types: Marijuana Allergy Information I have reviewed the patient's allergies. Patient has no known allergies. Home Medications Home medications were reviewed. Review Of Systems All relevant systems have been reviewed and are negative except as noted in HPI or below Physical Examination BP (!) 150/85 Pulse 82 Temp 98.1 F (36.7 C) Resp 18 SpO2 98% General Appearance: alert; acute on chronically ill appearing; in mild acute distress HEENT: Head- normocephalic; Eyes- EOMI, sclera anicteric; Throat- mucous membranes moist Cardiovascular: regular rate and rhythm; normal S1, S2; no murmurs, rubs, clicks or gallops; peripheral edema absent Respiratory: Wheezing appreciated bilaterally nasal cannula Abdomen: soft, non-tender, non-distended Neurological: oriented x 3; normal speech; no focal findings or movement disorder noted Musculoskeletal: no significant deformity or tenderness to palpation Skin: normal coloration Psych: normal mood and affect documented in this encounter [facility] 10-15-2024 Emergency department Note Hourly rounding assessment completed on the patient. [x] Patient updated on plan of care [x] All comfort needs addressed [x] Patient updated on duration of visit All questions answered, patient denies further needs. Call light within reach. [facility] 10-15-2024 Emergency department Note Hourly rounding assessment completed on the patient. [x] Patient updated on plan of care [x] All comfort needs addressed [x] Patient updated on duration of visit All questions answered, patient denies further needs. Call light within reach. [facility] 10-15-2024 Consult note Associated Order (s): IP CONSULT TO TRAUMA SURGERY [facility] SURGICAL HISTORY & PHYSICAL/CONSULTATION NOTE ======== INJURIES: T7 vertebral body compression Bilateral leg pain ASSESSMENT & PLAN/ACTIVE MEDICAL PROBLEMS: T7 vertebral body compression CT with moderate central compression of the T7 vertebral body. No definite fracture lines are visualized. This could be a chronic and less likely acute/subacute compression fracture. +point tenderness, no focal deficits. Obtain MRI Thoracic spine Pain control, therapies when appropriate Acute Hypoxic Respiratory Failure History of COPD and asthma, does not utilize home oxygen, requiring NC in ED. CT PE study pending Maintain saturations > 88% Management per primary Bilateral leg pain Was just treated at his PCP for bilateral cellulitis with 10-day course of antibiotics which has been completed XR tib-fib R/L pending Opiate dependence Takes Subutex Fall Denies hitting his head or having any LOC Denies cervical spine pain to palpation XR L/R tib/fib pending UA/culture Therapies when appropriate INCIDENTAL FINDINGS: N/A. CHIEF COMPLAINT: Shortness of breath, back pain Notification Time: 2250 Arrival at Bedside: 2300 HISTORY OF PRESENT ILLNESS / INJURY (HPI): Carmen is a 59-year-old male with past medical history significant for COPD, diabetes, opiate dependence, hypertension, anxiety, asthma who presented to [facility] with a chief complaint of shortness of breath. The patient states that he was walking in from his car when his shortness of breath became so profound that he can no longer walk causing him to fall backwards. He denies hitting his head or having any loss of consciousness. He denied any cervical spine pain to palpation. He did report thoracic spine pain to palpation. CT imaging with moderate central compression of the T7 vertebral body without definite fracture line however given point tenderness, trauma was consulted for evaluation. Recommend medical admission for acute hypoxic respiratory failure. PAST MEDICAL HISTORY (PMH): Past Medical History: Diagnosis Date Anxiety Arrhythmia Arthritis Asthma COPD (chronic obstructive pulmonary disease) (HCC) Diabetes (HCC) Hypertension Opioid dependence (HCC) Secondary adrenal insufficiency 04/30/2022 left AMA 04/30/22 without treatment Past Surgical History: Procedure Laterality Date APPENDECTOMY ARTHROPLASTY KNEE TOTAL ROBOTIC ASSISTED Right 01/08/2020 Procedure: Right Total Knee Replacement Robotic; Surgeon: Sofía Dukes MD; Location: Main OR; Service: Ortho-Robotics DEBRIDEMENT WITH WOUND CLOSURE POSS SKIN GRAFT LOWER EXTR Right 06/03/2023 Procedure: RIGHT LATERAL LEG Debridement with VERSAJET; Surgeon: ALEXEY Radford DPM; Location: Main OR; Service: Podiatry FOOT SURGERY Left MANDIBLE FRACTURE SURGERY ORTHOPEDIC SURGERY Right knee SKIN GRAFT SPLIT THICKNESS LOWER EXTREMITY Right 08/05/2023 Procedure: RIGHT LOWER LEG SPLIT THICKNESS SKIN GRAFT; Surgeon: Cecilia Gonzales DPM; Location: Main OR; Service: Podiatry THORACIC DUCT LIGATION 01/15/2017 THORACIC DUCT LIGATION WOUND VAC Right 06/03/2023 Procedure: APPLICATION WOUND VAC; Surgeon: ALEXEY Radford DPM; Location: Main OR; Service: Podiatry Social History Tobacco Use Smoking status: Former Passive exposure: Current Smokeless tobacco: Current Types: Chew Vaping Use Vaping status: Never Used Substance Use Topics Alcohol use: Not Currently Drug use: Not Currently Types: Marijuana Family History Problem Relation Age of Onset Heart disease Mother Diabetes Mother MEDICATIONS: No current facility-administered medications on file prior to encounter. Current Outpatient Medications on File Prior to Encounter Medication Sig Dispense Refill meloxicam (MOBIC) 15 MG tablet Take 1 (one) tablet (15 mg total) by mouth daily . albuterol (PROVENTIL) 2.5 mg /3 mL (0.083 %) nebulizer solution Take 3 mL (2.5 mg total) by nebulization every 6 (six) hours as needed for wheezing . 75 mL 0 albuterol 90 mcg/actuation inhaler Inhale 2 (two) puffs every 6 (six) hours as needed for wheezing . 18 g 1 aspirin 81 MG EC tablet Take 1 (one) tablet (81 mg total) by mouth every morning . buprenorphine HCL (SUBUTEX) [address] 1 (one) tablet (8 mg total) under the tongue See Admin Instructions Fills # 75/30day supply (09/29/23) 1 tab bid and 0.5 tab at bedtime Reasons: opioid use disorder. Combivent Respimat 20-100 mcg/actuation Mist Inhale 1 (one) puff to 2 (two) puffs every 4 to 6 hours as needed . diltiazem (TIAZAC) 240 MG 24 hr capsule Take 1 (one) capsule (240 mg total) by mouth every morning . furosemide (LASIX) 40 MG tablet Take 1 (one) tablet (40 mg total) by mouth 2 (two) times a day . gabapentin (NEURONTIN) 600 MG tablet Take 1 (one) tablet (600 mg total) by mouth 4 (four) times a day . naloxone (NARCAN) 4 mg/actuation [place] Administer 1 spray into one nostril for known or suspected opioid overdose. If patient worsens or does not respond, may repeat in 2-3 minutes. . 2 each 1 pantoprazole (PROTONIX) 20 MG tablet Take 1 (one) tablet (20 mg total) by mouth daily Start: 01/09/20. 30 tablet 0 predniSONE (DELTASONE) 5 MG tablet Take 1 (one) tablet (5 mg total) by mouth daily . (Patient not taking: Reported on 10/15/2024 .) 30 tablet 3 simethicone (GAS-X Extra Strength) 125 MG chewable tablet Chew and Swallow 1 (one) tablet (125 mg total) every 6 (six) hours as needed (gas/bloating) . spironolactone (ALDACTONE) 25 MG tablet Take 2 (two) tablets (50 mg total) by mouth daily . 60 tablet 0 Symbicort 160-4.5 mcg/actuation inhaler Inhale 2 (two) puffs 2 (two) times a day . ALLERGIES: No Known Allergies REVIEW OF SYSTEMS: COVID19 Screen: Negative for fever, cough, SOB, exposure. Constitutional Symptoms: Negative for unexplained falls, weight loss Eyes: Negative for eye pain or vision changes Ears, Nose, Mouth, Throat: Negative for rhinorrhea, nasal pain, dysphagia, hoarseness Cardiovascular: Negative for chest pain, orthopnea, edema Respiratory: + Cough, shortness of breath Gastrointestinal: Negative for abdominal pain, nausea, vomiting, diarrhea Genitourinary: Negative for dysuria, hematuria Musculoskeletal: Negative for pain, joint edema Skin/Breast: Negative for rash, itching, lesions Neurological: Negative for paresthesia, paralysis, loss of bowel or bladder control, loss of consciousness Psychiatric: Negative for depression, anxiety, or suicidal ideations Endocrine: Negative for heat/cold intolerance, polydipsia, polyphagia, polyuria Hematologic/Lymphatic: Negative for anticoagulant use, antiplatelet use, family hx of clotting or bleeding disorders Allergic/Immunologic: Allergies reviewed, no use of immunosuppressants or active chemotherapy Other than the above items, the remainder of a complete review of systems is otherwise negative. PHYSICAL EXAM: BP (!) 146/96 Pulse 88 Temp 98.1 F (36.7 C) Resp 17 SpO2 100% There is no height or weight on file to calculate BMI. GENERAL: Appears age appropriate. No acute distress. NEUROLOGICAL: Alert and oriented X 3. Follows commands with extremities x4, equal strength. Pupils equal, round, reactive to light. No focal neurologic deficits noted. GCS = 15 Head Eyes Ear Nose Throat: Head: Atraumatic, normocephalic. Eyes: Conjunctivae/sclerae/corneas clear. Ears: External ear normal. Hearing within normal limits for patient. No drainage. Nose: nares normal, septum midline, no drainage or nasal tenderness. Throat: phonation normal Neck: Supple, trachea midline, no midline tenderness, step offs, bony crepitus. CARDIOVASCULAR: Regular rate and rhythm. 2+ peripheral BLE edema. 2+ pulses radial/DP/PT bilaterally. RESPIRATORY: Lungs, clear to auscultation bilaterally. Respiratory effort mildly labored with minimal use of accessory muscles. NC. ABDOMINAL: Rounded, soft, nontender, non distended. No guarding or peritoneal signs. GENITOURINARY: Normal genitalia for age without lesion or trauma. Rectal exam - defer MUSCULOSKELETAL: Extremities atraumatic without gross deformity x4. ROM appropriate for age. No clubbing, cyanosis or joint edema. SPINE: +TTP thoracic spine SKIN: Vascular changes to bilateral lower extremities. Generalized ruddiness. IMAGING STUDIES: I have reviewed the following: All reviewed. LABORATORY STUDIES: Lab Results Component Value Date WBC 4.98 10/15/2024 HGB 10.9 (L) 10/15/2024 HCT 36.9 (L) 10/15/2024 MCV 70.6 (L) 10/15/2024 EXTMCV 73.5 (L) 05/05/2017 PLT 121 (L) 10/15/2024 RBC 5.23 10/15/2024 Lab Results Component Value Date GLUCOSE 139 (H) 10/15/2024 CALCIUM 8.8 10/15/2024 NA 141 10/15/2024 K 4.1 10/15/2024 CL 98 10/15/2024 BUN 16 10/15/2024 CREATININE 0.69 10/15/2024 Lab Results Component Value Date ALT 15 10/15/2024 AST 28 10/15/2024 ALKPHOS 89 10/15/2024 BILITOT 0.7 10/15/2024 Cosigned by Radames Maldonado MD at 10/16/2024 2:26 AM EST [facility] 10-15-2024 Emergency department Note Hourly rounding assessment completed on the patient. [] Patient updated on plan of care [x] All comfort needs addressed [] Patient updated on duration of visit PT bedding and cords adjusted to comfort. PT urinal dumped and given back. Phone provided to PT. Lights out per request. PT voices no other needs at this time. Call light is in reach. [facility] 10-15-2024 Emergency department Note Trauma SHIPPER AND RECEIVING Makesuri at the bedside for consult. [facility] 10-15-2024 Emergency department Note Pt still refusing to wear BP cuff even for a moment to check his BP [facility] 10-15-2024 Emergency department Note Hourly rounding assessment completed on the patient. [x] Patient updated on plan of care [x] All comfort needs addressed [x] Patient updated on duration of visit All questions answered, patient denies further needs. Call light within reach. [facility] 10-15-2024 Emergency department Note Pt yelling out, this RN and RN Dede to the bedside. 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 Pt states that it fell onto his head. Small abrasion noted between patient's eyebrows, no bleeding noted at this time. Pt A&Ox4, resps even and unlabored, and no acute distress noted at this time. weight calculator Mary and Dr Lozano notified. Will observe patient for [address] Lozano. [facility] 10-15-2024 Emergency department Note Pt back from CT [facility] 10-15-2024 Emergency department Note Pt refused toradol, stating "I want my tramadol or subutex". This RN will notify Dr Lozano. [facility] 10-15-2024 Emergency department Note Pt back from CT and refusing to have BP cuff on. [facility] 10-15-2024 Emergency department Note Pt refused CT; Dr Lozano aware. [facility] 10-15-2024 Emergency department Note Pt to xray [facility] 10-15-2024 Physician Emergency department Note Associated Order(s): Critical Care; ECG 12 Lead (Now) [facility] EMERGENCY DEPARTMENT ATTENDING NOTE: NAME: Carmen Gilman CSN: [id number] 59 y.o. PCP: Ani Worley CNP History: Chief Complaint: Shortness of Breath HPI: 59-year-old male former smoker past medical history of hypertension diabetes COPD not on oxygen presents to the emergency department via EMS for evaluation of shortness of breath symptoms with associated dry cough that been progressively worsening over the past 10 days. Patient states he had a mechanical trip and fall today as well and landed on his back negative head/neck strike negative LOC GCS 15 negative thinners. Patient states that he has weeping legs on both sides that has been following outpatient for and was sent home on some antibiotics. Patient was found saturating 75% on room air and was given DuoNeb treatments prior to arrival. Patient not normally on oxygen. Patient states that he is given himself albuterol 23 times today. Patient denies any other symptoms at this time PMHx: Past Medical History: Diagnosis Date Anxiety Arrhythmia Arthritis Asthma COPD (chronic obstructive pulmonary disease) (HCC) Diabetes (HCC) Hypertension Opioid dependence ([facility]) Secondary adrenal insufficiency 04/30/2022 left AMA 04/30/22 without treatment PMSx: Past Surgical History: Procedure Laterality Date APPENDECTOMY ARTHROPLASTY KNEE TOTAL ROBOTIC ASSISTED Right 01/08/2020 Procedure: Right Total Knee Replacement Robotic; Surgeon: Sofía Dukes MD; Location: Main OR; Service: Ortho-Robotics DEBRIDEMENT WITH WOUND CLOSURE POSS SKIN GRAFT LOWER EXTR Right 06/03/2023 Procedure: RIGHT LATERAL LEG Debridement with VERSAJET; Surgeon: ALEXEY Radford DPM; Location: Main OR; Service: Podiatry FOOT SURGERY Left MANDIBLE FRACTURE SURGERY ORTHOPEDIC SURGERY Right knee SKIN GRAFT SPLIT THICKNESS LOWER EXTREMITY Right 08/05/2023 Procedure: RIGHT LOWER LEG SPLIT THICKNESS SKIN GRAFT; Surgeon: Cecilia Gonzales DPM; Location: Main OR; Service: Podiatry THORACIC DUCT LIGATION 01/15/2017 THORACIC DUCT LIGATION WOUND VAC Right 06/03/2023 Procedure: APPLICATION WOUND VAC; Surgeon: ALEXEY Radford DPM; Location: Main OR; Service: Podiatry FAM. Hx: Family History Problem Relation Age of Onset Heart disease Mother Diabetes Mother SOC. Hx: Social History Socioeconomic History Marital status: Single Tobacco Use Smoking status: Former Passive exposure: Current Smokeless tobacco: Current Types: Chew Vaping Use Vaping status: Never Used Substance and Sexual Activity Alcohol use: Not Currently Drug use: Not Currently Types: Marijuana Sexual activity: Not Currently Social History Narrative Merged History Encounter Merged History Encounter Social Drivers of Health Financial Resource Strain: Low Risk (07/03/2024) Overall Financial Resource Strain (CARDIA) Difficulty of Paying Living Expenses: Not very hard Food Insecurity: Food Insecurity Present (07/03/2024) Hunger Vital Sign Worried About Running Out of Food in the Last Year: Sometimes true Ran Out of Food in the Last Year: Sometimes true Transportation Needs: No Transportation Needs (07/03/2024) PRAPARE - Transportation Lack of Transportation (Medical): No Lack of Transportation (Non-Medical): No Housing Stability: High Risk (07/03/2024) Housing Stability Vital Sign Unable to Pay for Housing in the Last Year: No Number of Times Moved in the Last Year: 3 Homeless in the Last Year: No MEDs: Previous Medications Medication Sig meloxicam (MOBIC) 15 MG tablet Take 1 (one) tablet (15 mg total) by mouth daily . albuterol (PROVENTIL) 2.5 mg /3 mL (0.083 %) nebulizer solution Take 3 mL (2.5 mg total) by nebulization every 6 (six) hours as needed for wheezing . albuterol 90 mcg/actuation inhaler Inhale 2 (two) puffs every 6 (six) hours as needed for wheezing . aspirin 81 MG EC tablet Take 1 (one) tablet (81 mg total) by mouth every morning . buprenorphine HCL (SUBUTEX) [address] 1 (one) tablet (8 mg total) under the tongue See Admin Instructions Fills # 75/30day supply (09/29/23) 1 tab bid and 0.5 tab at bedtime Reasons: opioid use disorder. Combivent Respimat 20-100 mcg/actuation Mist Inhale 1 (one) puff to 2 (two) puffs every 4 to 6 hours as needed . diltiazem (TIAZAC) 240 MG 24 hr capsule Take 1 (one) capsule (240 mg total) by mouth every morning . furosemide (LASIX) 40 MG tablet Take 1 (one) tablet (40 mg total) by mouth 2 (two) times a day . gabapentin (NEURONTIN) 600 MG tablet Take 1 (one) tablet (600 mg total) by mouth 4 (four) times a day . naloxone (NARCAN) 4 mg/actuation [place] Administer 1 spray into one nostril for known or suspected opioid overdose. If patient worsens or does not respond, may repeat in 2-3 minutes. . pantoprazole (PROTONIX) 20 MG tablet Take 1 (one) tablet (20 mg total) by mouth daily Start: 01/09/20. predniSONE (DELTASONE) 5 MG tablet Take 1 (one) tablet (5 mg total) by mouth daily . (Patient not taking: Reported on 10/15/2024 .) simethicone (GAS-X Extra Strength) 125 MG chewable tablet Chew and Swallow 1 (one) tablet (125 mg total) every 6 (six) hours as needed (gas/bloating) . spironolactone (ALDACTONE) 25 MG tablet Take 2 (two) tablets (50 mg total) by mouth daily . Symbicort 160-4.5 mcg/actuation inhaler Inhale 2 (two) puffs 2 (two) times a day . ALL: No Known Allergies Physical Exam: Patient Vitals for the past 24 hrs: BP Temp Pulse Resp SpO2 10/15/24 2300 -- -- 88 17 100 % 10/15/242230 -- -- 79 18 100 % 10/15/242205 -- -- 93 17 96 % 10/15/242056 -- -- 85 17 98 % 10/15/242055 -- -- 82 17 99 % 10/15/242047 -- -- 81 17 100 % 10/15/242030 -- -- 87 15 -- 10/15/242006 -- -- 89 (!) 23 -- 10/15/24 193 -- -- 92 13 99 % 10/15/241900 -- -- -- -- 100 % 10/15/241899 -- -- 85 18 100 % 10/15/24 181 (!) 146/96 98.1 F (36.7 C) (!) 100 (!) 28 98 % Physical Exam Vitals and nursing note reviewed. Constitutional: General: He is awake. Appearance: He is obese. HENT: Head: Normocephalic and atraumatic. Nose: Nose normal. Eyes: General: Lids are normal. No scleral icterus. Cardiovascular: Rate and Rhythm: Regular rhythm. Tachycardia present. Pulmonary: Effort: Accessory muscle usage and respiratory distress present. Comments: Inspiratory expiratory wheezing bilaterally. Tachypneic. Saturating 94% on 5 L Skin: General: Skin is warm. Neurological: Mental Status: He is alert and oriented to person, place, and time. Laboratory & Radiological Imaging (if done): Labs Reviewed COMPREHENSIVE METABOLIC PANEL - Abnormal; Notable for the following components: Result Value Bicarbonate 33 (*) Glucose 139 (*) BUN/Creatinine Ratio 23.2 (*) All other components within normal limits Narrative: [facility] has implemented the eGFR calculation approach that does not have a coefficient for race that conforms to the NKF-ASN Task Force Recommendations. TROPONIN - Abnormal; Notable for the following components: Delta Difference Troponin T 10 (*) All other components within normal limits D-DIMER, QUANTITATIVE - Abnormal; Notable for the following components: D-Dimer 13.56 (*) All other components within normal limits Narrative: A D-dimer concentration of <0.5 micrograms per milliliter FEU is considered a low probability for pulmonary embolus (PE) and deep venous thrombosis (DVT). Results of this test should always be interpreted in conjunction with the patient's medical history,clinical presentation, and other findings. Clinical diagnosis should not be based on the results of the D-dimer alone. POC VENOUS BLOOD GAS PANEL-PULM - RALS - Abnormal; Notable for the following components: pCO2, [place] 65.4 (*) Base Excess, [place] 9.7 (*) HCO3, [place] 37.3 (*) Hemoglobin, Blood Gas 11.4 (*) Hematocrit, Calculated 35.1 (*) Carboxyhemoglobin 2.7 (*) Glucose 134 (*) Chloride 96 (*) All other components within normal limits CBC WITH AUTO DIFFERENTIAL - Abnormal; Notable for the following components: Hemoglobin 10.9 (*) Hematocrit 36.9 (*) MCV 70.6 (*) MCH 20.8 (*) MCHC 29.5 (*) Platelets 121 (*) RDW - CV 16.8 (*) MPV 9.1 (*) Lymphocytes Abs 0.39 (*) All other components within normal limits MORPHOLOGY - Abnormal; Notable for the following components: Platelet Estimate Decreased (*) All other components within normal limits BLOOD CULTURE AEROBIC/ANAEROBIC - Normal BLOOD CULTURE AEROBIC/ANAEROBIC - Normal COVID-19/INFLUENZA A,B MOLECULAR - Normal MRSA DNA AMPLIFIED PROBE - Normal NT PRO BNP - Normal Narrative: Pride Study Cut-offs Rule In: < /= 50 Years >450 pg/mL 51 Years - 75 Years >900 pg/mL 76 Years - 99 Years >1800 pg/mL Rule Out: All patients <300 pg/mL CBC AND DIFFERENTIAL Narrative: The following orders were created for panel order CBC and Differential. Procedure Abnormality Status --------- ------ CBC Auto Differential[[id number]] Abnormal Final result CBC and Diff Morphology[[id number]] Abnormal Final result Please view results for these tests on the individual orders. TROPONIN OBTAIN VENOUS BLOOD GASES AND PERFORM CT Thoracic And Lumbar Spine Reconstructed Preliminary Result 1. There is moderate central compression of the T7 vertebral body, new compared to 07/02/2024. No definite fracture lines are visualized. This could be a chronic and less likely acute/subacute compression fracture. If there is focal point tenderness or further concern, MRI should be obtained. 2. Stable chronic compression fractures at the L1 and L2 vertebral bodies. 3. No acute compression fracture in the remaining thoracic and lumbar spine. [facility] Workstation ID: [id number] CTA Pulm Art and CT Abd Pelvis with IV contrast Final Result 1. Suboptimal pulmonary artery opacification, but no evidence of pulmonary emboli or other acute thoracic findings. 2. Cirrhotic liver morphology similar to prior with stigmata of portal venous hypertension. 3. No acute intraabdominal findings otherwise. 4. New fracture of T7. Workstation ID: [id number] Tibia Fibula Left 2 Views Preliminary Result 1. No acute fracture or dislocation of the pelvis or either tibia or fibula is seen. If there is concern for an occult injury of the pelvis, cross-sectional imaging is recommended. Otherwise, if pain persists, repeat radiographs are recommended in 7-10 days. [facility] Workstation ID: [id number] Tibia Fibula Right 2 Views Preliminary Result 1. No acute fracture or dislocation of the pelvis or either tibia or fibula is seen. If there is concern for an occult injury of the pelvis, cross-sectional imaging is recommended. Otherwise, if pain persists, repeat radiographs are recommended in 7-10 days. [facility] Workstation ID: [id number] [id number] Pelvis 1 View (Standard) Preliminary Result 1. No acute fracture or dislocation of the pelvis or either tibia or fibula is seen. If there is concern for an occult injury of the pelvis, cross-sectional imaging is recommended. Otherwise, if pain persists, repeat radiographs are recommended in 7-10 days. [facility] Workstation ID: [id number] XR Chest 1 View Final Result No acute cardiopulmonary process. Workstation ID: [id number] Procedures: Critical Care Performed by: Jose Lozano MD Authorized by: Jose Lozano MD Total critical care time: 50 minutes Critical care was time spent personally by me on the following activities: examination of patient, pulse oximetry and re-evaluation of patient's condition. ECG 12 Lead (Now) Date/Time: 10/15/2024 7:21 PM Performed by: Jose Lozano MD Authorized by: Jose Lozano MD Interpreted by ED attending physician Rhythm: sinus rhythm BPM: 92 normal SC interval normal QRS interval Comments: Normal [place] not prolonged QRS not prolonged Qt<1/2 rr interval No STEMI nsr ED Course / Medical Decision Making: I did personally review Carmen's past medical history, surgical history, social history, as well as family history (when relevant). After reviewing the items above, I did look at previous medical documentation. Social conditions impacting the patients care are: Former smoker Some Differential Diagnoses Include: STEMI NSTEMI pneumonia pneumothorax COVID flu COPD Labs/Imaging: no pe. Compression fracture ED course: Patient presents to the emergency department for evaluation of shortness of breath symptoms most in line with COPD exacerbation. Patient tachypneic on exam and tachycardic. Patient with inspiratory and expiratory wheezing and accessory muscle use. Patient has already had multiple breathing treatments prior to arrival per patient with albuterol, and was given DuoNeb prior to arrival. Patient still with active work of breathing. Magnesium initiated. Ketamine initially ordered, though later canceled in light of congestive heart failure history. Of note, patient has a history of adrenal insufficiency. Decadron given for both COPD as well as possibility of adrenal insufficiency Patient with history of heart failure. Fluids deferred. Broad-spectrum antibiotics placed in light of patient meeting sepsis criteria Pt given medications with improvement of sx and vital signs. Discussed case with trauma service, who came to the bedside to evaluate the patient. Will admit for further management Shared decision making used: yes Code Status: Full . Clinical Impression: 1. Acute respiratory failure with hypoxia (HCC) 2. COPD exacerbation (HCC) 3. Cellulitis, unspecified cellulitis site 4. Sepsis, due to unspecified organism, unspecified whether acute organ dysfunction present (HCC) 5. Compression fracture of T7 vertebra, initial encounter ([facility]) Disposition: ED Disposition None Jose Lozano MD, MD ED Attending Physician [facility] Jose Lozano MD 10/15/24 [id number] [facility] 10-15-2024 Emergency department Triage note Pt to ED with c/c of shortness of breath. Onset all day worsening to now. PT wheezing, speaking in 2-3 words sentence. EMS reported patient was 75% on RA, increase to 98% on 2 lpm. Pt was given duoneb treatment via EMS. Pt also just finished antibiotics for leg infection. [facility] 07-05-2024 History of Present illness Narrative Patient Name: Carmen Gilman Admit Date: [id number] MR #: [id number] : 1965 Physicians: Ani Worley, ENVIRONMENTAL EMERGENCIES PLANNER (Family); No ref. provider found (Referring) Assessment: Patient with 1. Multiple pulmonary nodules,?etiology 2. 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 Lymphedema, 4. Abdominal pain, 5. History of liver cirrhosis and ascites. Plan. Continue patient on current therapy Patient currently on IV Cefazolin Patient on p.o. azithromycin I reviewed abdominal ultrasound, with cirrhosis, no ascites.No cholelithiasis. No nephrolithiasis. I reviewed Right knee x-ray with right total knee arthroplasty, Prosthetic lucency, moderate right knee effusion noted. And swellings that may suggest cellulitis. I reviewed CT of the pulmonary artery, with numerous pulmonary nodules Not seen from previous, and soft tissue gas in the posterior right shoulder. I appreciate orthopedic evaluation, status post arthrocentesis, Follow-up synovial fluid culture and analysis. Okay to send synovial fluid for PCR. Follow-up sputum cultures Follow-up fungal serology Follow-up Aspergillus Follow-up respiratory PCR, patient with history of RSV Follow-up ESR 101, C-reactive protein 36.2. Will consider compression dressing, when patient stable. Patient on diuretics. Will continue to follow with you. I discussed with the RN, to get sputum culture urine for strep antigen and histoplasma antigen. On Discharge: To be determined after arthrocentesis/synovial fluid culture results. Subjective: The patient was reevaluated, with no new symptoms, no fever or chills. Tmax of 98.5. Saturating 95% on room air. Patient insisting on going home. had the arthrocentesis yesterday on the right knee. Exam: PACU Vitals 07/05/24 1044 BP: Pulse: Resp: 18 Temp: SpO2: Allergies: Patient has no known allergies. Current Facility-Administered Medications: acetaminophen (TYLENOL) tablet 650 mg, 650 mg, Oral, Q4H PRN, Christian Porter MD albuterol (PROVENTIL) 2.5 mg /3 mL (0.083 %) nebulizer solution 2.5 mg, 2.5 mg, Nebulization, Q6H PRN, Christian Porter MD albuterol inhaler 2 puff, 2 puff, Inhalation, Q6H PRN, Christian Porter MD aluminum-magnesium hydroxide-simethicone (MAALOX PLUS) 200-200-20 mg/5 mL suspension 30 mL, 30 mL, Oral, Q4H PRN, Christian Porter MD aspirin EC tablet 81 mg, 81 mg, Oral, QAM, Christian Porter MD, 81 mg at 07/05/24 0943 azithromycin (ZITHROMAX) tablet 500 mg, 500 mg, Oral, Daily, Christian Porter MD, 500 mg at 07/05/24 0943 buprenorphine HCL (SUBUTEX) SL tablet 8 mg, 8 mg, Sublingual, BID, Christian Portre MD, 8 mg at 07/05/24 0944 ceFAZolin (ANCEF) IVPB 2 g (premix), 2,000 mg, Intravenous, Q8H, Christian Porter MD, Last Rate: 100 mL/hr at 07/05/24 0406, 2,000 mg at 07/05/24 0406 diltiazem (CARDIZEM CD) 24 hr capsule 240 mg, 240 mg, Oral, Daily, Christian Porter MD, 240 mg at 07/05/2443 enoxaparin (LOVENOX) syringe 40 mg, 40 mg, Subcutaneous, Daily, Christian Porter MD, 40 mg at 07/03/24911 furosemide (LASIX) tablet 40 mg, 40 mg, Oral, BID, Christian Porter MD, 40 mg at 07/05/24942 gabapentin (NEURONTIN) capsule 400 mg, 400 mg, Oral, Nightly, Christian Porter MD, 400 mg at 07/04/242009 ipratropium-albuteroL (DUO-NEB) 0.5-2.5 mg/3 ml nebulizer solution 3 mL, 3 mL, Inhalation, Q6H PRN, Christian Porter MD melatonin tablet 3 mg, 3 mg, Oral, Nightly PRN, Christian Porter MD, 3 mg at 07/04/242256 mometasone-formoterol (DULERA) 200-5 mcg/actuation inhaler 2 puff, 2 puff, Inhalation, BID, Christian Porter MD, 2 puff at 07/03/242050 ondansetron (ZOFRAN-ODT) disintegrating tablet 4 mg, 4 mg, Oral, Q6H PRN OR ondansetron (ZOFRAN) injection 4 mg, 4 mg, Intravenous, Q6H PRN, Christian Porter MD pantoprazole (PROTONIX) EC tablet 20 mg, 20 mg, Oral, Daily, Christian Porter MD, 20 mg at 07/05/2443 predniSONE (DELTASONE) tablet 5 mg, 5 mg, Oral, Daily, Christian Porter MD, 5 mg at 07/05/24 0943 senna (SENOKOT) tablet 8.6 mg, 1 tablet, Oral, BID PRN, Christian Porter MD simethicone (MYLICON) chewable tablet 80 mg, 80 mg, Oral, Q6H PRN, Christian Porter MD [COMPLETED] Insert peripheral IV, , , Once AND Saline lock IV, , , Once AND sodium chloride (PF) (NS) flush 5 mL, 5 mL, Intravenous, PRN AND sodium chloride 0.9% (NS), 0-150 mL/hr, Intravenous, PRN, Jose Lozano MD Saline lock IV, , , Continuous AND sodium chloride (PF) (NS) flush 5 mL, 5 mL, Intravenous, PRN AND sodium chloride (PF) (NS) flush 5 mL, 5 mL, Intravenous, Q8H CASSIUS, 5 mL at 07/04/24 2200 AND sodium chloride 0.9% (NS), 0-150 mL/hr, Intravenous, PRN, Christian Porter MD spironolactone (ALDACTONE) tablet 50 mg, 50 mg, Oral, Daily, Christian Porter MD, 50 mg at 07/05/24 0944 Current Outpatient Medications: diltiazem (TIAZAC) 240 MG 24 hr capsule, Take 1 (one) capsule (240 mg total) by mouth every morning ., Disp: , Rfl: gabapentin (NEURONTIN) 400 MG capsule, Take 1 (one) capsule (400 mg total) by mouth 4 (four) times a day ., Disp: , Rfl: naloxone (NARCAN) 4 mg/actuation [place], Administer 1 spray into one nostril for known or suspected opioid overdose. If patient worsens or does not respond, may repeat in 2-3 minutes. ., Disp: 2 each, Rfl: 1 pantoprazole (PROTONIX) 20 MG tablet, Take 1 (one) tablet (20 mg total) by mouth daily Start: 05/20/20., Disp: 30 tablet, Rfl: 0 spironolactone (ALDACTONE) 25 MG tablet, Take 2 (two) tablets (50 mg total) by mouth daily ., Disp: 60 tablet, Rfl: 0 albuterol (PROVENTIL) 2.5 mg /3 mL (0.083 %) nebulizer solution, Take 3 mL (2.5 mg total) by nebulization every 6 (six) hours as needed for wheezing ., Disp: 75 mL, Rfl: 0 albuterol 90 mcg/actuation inhaler, Inhale 2 (two) puffs every 6 (six) hours as needed for wheezing ., Disp: 18 g, Rfl: 1 aspirin 81 MG EC tablet, Take 1 (one) tablet (81 mg total) by mouth every morning ., Disp: , Rfl: azithromycin (ZITHROMAX) 500 MG tablet, Take 1 (one) tablet (500 mg total) by mouth daily for 3 days Start: 07/05/24., Disp: 3 tablet, Rfl: 0 buprenorphine HCL (SUBUTEX) 8 mg SL Tablet, Place 1 (one) tablet (8 mg total) under the tongue Fills # 75/30day supply (09/29/23) 1 tab bid and 0.5 tab at bedtime Reasons: opioid use disorder., Disp: , Rfl: Combivent Respimat 20-100 mcg/actuation [place], Inhale 1 (one) puff to 2 (two) puffs every 4 to 6 hours as needed ., Disp: , Rfl: furosemide (LASIX) 40 MG tablet, Take 1 (one) tablet (40 mg total) by mouth 2 (two) times a day ., Disp: , Rfl: predniSONE (DELTASONE) 5 MG tablet, Take 1 (one) tablet (5 mg total) by mouth daily ., Disp: 30 tablet, Rfl: 3 simethicone (GAS-X Extra Strength) 125 MG chewable tablet, Chew and Swallow 1 (one) tablet (125 mg total) every 6 (six) hours as needed (gas/bloating) ., Disp: , Rfl: Symbicort 160-4.5 mcg/actuation inhaler, Inhale 2 (two) puffs 2 (two) times a day ., Disp: , Rfl: PMH/PSH/SH/FH reviewed, no change : Review of Systems: All systems were reviewed no change: Medications Reviewed. Allergies: Patient has no known allergies. Chart Reviewed. Exam Findings: HEENT: Atraumatic/Pupils equal & reactive Neck: Supple, no rigidity ENT: No oral candidiasis Chest: Lungs clear bilaterally, no wheezing, or rales CVS: Normal S1 & S2+,. Abdomen: Morbidly obese, normal symmetry, Soft/non-tender. Benign, BS+ Extremities: No Deformities, edema of the lower extremities, more on the right than the left, knee with some swellings. Skin: Intact & No Rashes, or excoriations Musculoskeletal: No joint swelling, non tender TRAIN PLANNER: Awake, and Ox3, looking depressed Wound: None but scabs of incisional scar in the right knee Tavera Catheter:None IV Access: Yes I reviewed Medications. I reviewed Labs. US Abdomen Limited Study Final Result Cirrhosis with splenomegaly. No ascites. No cholelithiasis or biliary ductal dilatation. No right hydronephrosis or nephrolithiasis. /[facility] Workstation ID: [id number] Knee Right 2 Views (Standard) Final Result FINDINGS/ 1. Right total knee arthroplasty is in satisfactory position. Periprosthetic lucency is noted surrounding the femoral and tibial prostheses, concerning for hardware loosening or infection. 2. Moderate right knee joint effusion is suspected. 3. No fracture, malalignment, or other acute bony abnormality is seen. 4. Chronic linear calcification remains unchanged in the region of the distal quadriceps tendon. 5. Soft tissue swelling is noted, which may represent cellulitis in the correct clinical setting. No abnormal gas bubbles are seen. Workstation ID: [id number] CT Pulmonary Arteries Final Result 1. Suboptimal evaluation of the pulmonary arteries with only the central pulmonary arteries evaluated, if concerned for more peripheral pulmonary emboli, recommend re-imaging with earlier contrast bolus 2. Atherosclerotic changes, degenerative changes, old rib fractures, cirrhosis, ascites, varices, and splenomegaly noted 3. Numerous pulmonary nodules are seen which were not previously identified likely representing inflammatory or atypical infectious processes. Depending on patient's history, treatment and/or follow-up in 3 months could be considered to establish resolution. 4. Soft tissue gas is seen in the posterior right shoulder muscle, this is nonspecific. This may be related to injection although infection is not excluded. Workstation ID: [id number] Tibia Fibula Left 2 Views Final Result Extensive subcutaneous edema and soft tissue swelling without radiographic evidence of osteomyelitis. If there is high clinical concern, recommend MRI which is more sensitive. Workstation ID: [id number] Tibia Fibula Right 2 Views Final Result Diffuse soft tissue swelling and edema without radiographic evidence of osteomyelitis. If there is high clinical concern, recommend MRI. Right total knee arthroplasty with findings suspicious for component loosening. Consider obtaining dedicated right knee radiographs as clinically warranted. Workstation ID: [id number] Ultrasound Duplex Venous Legs BILATERAL Final Result XR Chest 1 View Final Result No active disease. Workstation ID: [id number] Laboratory and Additional Data Reviewed: Laboratory 07/05/24 4:27 PM Microbiology 07/05/24 4:27 PM Radiology 07/05/24 4:27 PM Medications 07/05/24 4:27 PM Lab Results Component Value Date WBC 4.66 07/03/2024 HGB 10.7 (L) 07/03/2024 HCT 35.0 (L) 07/03/2024 MCV 72.0 (L) 07/03/2024 PLT 135 (L) 07/03/2024 Lab Results Component Value Date GLUCOSE 103 (H) 07/03/2024 CALCIUM 8.4 07/03/2024 NA 137 07/03/2024 K 3.6 07/03/2024 CL 96 (L) 07/03/2024 BUN 16 07/03/2024 CREATININE 0.68 07/03/2024 Problem List Items Addressed This Visit Digestive Alcoholic cirrhosis of liver with ascites (HCC) Relevant Orders Ambulatory referral to Home Health Endocrine Type 2 diabetes mellitus without complication, without long-term current use of insulin (HCC) Relevant Orders Ambulatory referral to Home Health Adrenal insufficiency (HCC) Relevant Orders Ambulatory referral to Home Health Respiratory Chronic respiratory failure with hypoxia and hypercapnia (HCC) Relevant Medications albuterol (PROVENTIL) 2.5 mg /3 mL (0.083 %) nebulizer solution 2.5 mg albuterol inhaler 2 puff mometasone-formoterol (DULERA) 200-5 mcg/actuation inhaler 2 puff ipratropium-albuteroL (DUO-NEB) 0.5-2.5 mg/3 ml nebulizer solution 3 mL albuterol 90 mcg/actuation inhaler Other Relevant Orders Ambulatory referral to Home Health Mucopurulent chronic bronchitis (HCC) Relevant Medications albuterol (PROVENTIL) 2.5 mg /3 mL (0.083 %) nebulizer solution 2.5 mg albuterol inhaler 2 puff mometasone-formoterol (DULERA) 200-5 mcg/actuation inhaler 2 puff ipratropium-albuteroL (DUO-NEB) 0.5-2.5 mg/3 ml nebulizer solution 3 mL ceFAZolin (ANCEF) IVPB 2 g (premix) azithromycin (ZITHROMAX) tablet 500 mg albuterol 90 mcg/actuation inhaler azithromycin (ZITHROMAX) 500 MG tablet Other Relevant Orders Ambulatory referral to Home Health Cardiovascular and Mediastinum Essential hypertension Relevant Medications furosemide (LASIX) 40 MG tablet spironolactone (ALDACTONE) tablet 50 mg furosemide (LASIX) tablet 40 mg diltiazem (CARDIZEM CD) 24 hr capsule 240 mg Other Relevant Orders Ambulatory referral to Home Health Atrial fibrillation with rapid ventricular response (HCC) Relevant Medications furosemide (LASIX) 40 MG tablet aspirin EC tablet 81 mg spironolactone (ALDACTONE) tablet 50 mg furosemide (LASIX) tablet 40 mg diltiazem (CARDIZEM CD) 24 hr capsule 240 mg Other Relevant Orders Ambulatory referral to Home Health Hypotension Relevant Orders Ambulatory referral to Home Health Venous stasis dermatitis of both lower extremities Relevant Orders Ambulatory referral to Home Health Chronic diastolic congestive heart failure (HCC) Relevant Medications furosemide (LASIX) 40 MG tablet aspirin EC tablet 81 mg spironolactone (ALDACTONE) tablet 50 mg furosemide (LASIX) tablet 40 mg diltiazem (CARDIZEM CD) 24 hr capsule 240 mg Other Relevant Orders Ambulatory referral to Home Health * (Principal) Acute heart failure with preserved ejection fraction (HFpEF) (HCC) Relevant Medications furosemide (LASIX) 40 MG tablet aspirin EC tablet 81 mg spironolactone (ALDACTONE) tablet 50 mg furosemide (LASIX) tablet 40 mg diltiazem (CARDIZEM CD) 24 hr capsule 240 mg Other Relevant Orders Ambulatory referral to Home Health Musculoskeletal and Integument Osteoarthritis of right knee Relevant Orders Ambulatory referral to Home Health Ambulatory referral to Home Health Primary osteoarthritis of right knee Relevant Orders Ambulatory referral to Home Health Ulcer of left lower leg (HCC) Relevant Orders Ambulatory referral to Home Health 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) Relevant Medications ceFAZolin (ANCEF) IVPB 2 g (premix) azithromycin (ZITHROMAX) tablet 500 mg azithromycin (ZITHROMAX) 500 MG tablet Other Relevant Orders Ambulatory referral to Home Health Hematopoietic and Hemostatic Thrombocytopenia (HCC) Relevant Medications enoxaparin (LOVENOX) syringe 40 mg Other Relevant Orders Ambulatory referral to Home Health Pancytopenia (HCC) Relevant Medications enoxaparin (LOVENOX) syringe 40 mg predniSONE (DELTASONE) tablet 5 mg Other Relevant Orders Ambulatory referral to Home Health Other Morbid obesity with BMI of 40.0-44.9, adult (HCC) (Chronic) Relevant Orders Ambulatory referral to Home Health Acquired pes planovalgus of right foot Relevant Orders Ambulatory referral to Home Health Uncomplicated opioid dependence (HCC) Relevant Orders Ambulatory referral to Home Health Polysubstance abuse (HCC) Relevant Orders Ambulatory referral to Home Health Leukocytosis Relevant Medications predniSONE (DELTASONE) tablet 5 mg Other Relevant Orders Ambulatory referral to Home Health Nondependent cocaine abuse (HCC) Relevant Orders Ambulatory referral to Home Health Acute pain of left hip Relevant Orders Ambulatory referral to Home Health Pain of left femur Relevant Orders Ambulatory referral to Home Health Abnormal brain CT Relevant Orders Ambulatory referral to Home Health Hematoma Relevant Orders Ambulatory referral to Home Health Chronic pain Relevant Orders Ambulatory referral to Home Health Plantar ulcer of right foot (HCC) Relevant Orders Ambulatory referral to Home Health Foot infection Relevant Medications ceFAZolin (ANCEF) IVPB 2 g (premix) azithromycin (ZITHROMAX) tablet 500 mg azithromycin (ZITHROMAX) 500 MG tablet Other Relevant Orders Ambulatory referral to Home Health Cellulitis - Primary Relevant Orders Ambulatory referral to Home Health Tub Transfer Bench Ambulatory referral to Home Health Other Visit Diagnoses SOB (shortness of breath) Relevant Orders Tub Transfer Bench Ambulatory referral to Home Health Congestive heart failure, unspecified HF chronicity, unspecified heart failure type (HCC) Relevant Medications furosemide (LASIX) injection 20 mg (Completed) furosemide (LASIX) 40 MG tablet aspirin EC tablet 81 mg spironolactone (ALDACTONE) tablet 50 mg furosemide (LASIX) tablet 40 mg diltiazem (CARDIZEM CD) 24 hr capsule 240 mg furosemide (LASIX) injection 20 mg (Completed) Other Relevant Orders Ambulatory referral to Home Health I have taken time to review patient's information and having discussions with appropriate care teams, I appreciate seeing your patient, will continue to follow with you, and adjust with more information. Medical Decision Making: Moderate This note is created with the assistance of a speech-recognition program. While intending to generate a document that actually reflects the content of the visit, the document can still have some errors including those of syntax and sound a- like substitutions which may escape proofreading. In such instances, actual meaning can be extrapolated by contextual derivation. Care Management Progress Note Date: 07/05/2024 Time: 2:16 PM Patient Name: Carmen Gilman Date of : 1965 Discharge Plan: D/C Disposition: Home Health Care Services Related to Current Admission?: Yes Final D/C Agency/Destination: [facility] Plan A: Home Health Care Services Discharging Transportation Plan: Discharge Plan Status: AMA Assessment and Background Information: Per [employer], pt left AMA at this time. Miguel Ángel from [facility] updated. [facility] liaison updated. SDOH Needs Addressed: Food Insecurity, Housing Stability, Financial Resource Strain, Transportation Needs Resources Provided - Food Insecurity: Added to AVS Resources Provided - Transportation Needs: Added to AVS Resources Provided - Housing Stability: Added to AVS ATTENDING PHYSICIAN CAMERON VARGAS MD PRIMARY CARE PHYSICIAN ANI WORLEY, RODRIGUE ADMITTING PHYSICIAN CHRISTIAN PORTER MD CONSULTING PHYSICIAN [facility] Under sterile conditions with patient's consent, we aspirated 5 cc of bloody serous fluid, no evidence of purulence, from the right knee, which was sent for aerobic and anaerobic cultures as well as cell count. IMPRESSION 1. Right knee aseptic versus septic loosening. 2. History of chronic cellulitis both lower extremities. PLAN At this point in time, the validity of the culture results will be difficult with the antibiotics he has been on. However, this knee would be treated as a septic knee if the patient elects for revision in the future. At this point in time, he said he does not want to talk any surgery. We will wait for fluid cell analysis. D 07/05/2024 12:12 [id number] T 07/05/2024 12:42 MCB/MODL ATTENDING PHYSICIAN CAMERON VARGAS MD PRIMARY CARE PHYSICIAN ANI WORLEY, RODRIGUE ADMITTING PHYSICIAN CHRISTIAN PORTER MD CONSULTING PHYSICIAN [facility] Carmen's shoulder exams are completely benign. CAT scan, I do not understand the relevance of the CAT scan, but at this point in time, the shoulder exams are completely benign. We will proceed forward with aspiration on 07/05/2024 of his right knee. This is a chronic situation. D 07/04/2024 17:59 [id number] T 07/04/2024 18:17 MCB/MODL Patient Name: Carmen Gilman Admit Date: [id number] MR #: [id number] : 1965 Physicians: Ani Worley CNP (Family); No ref. provider found (Referring) Assessment: Patient with 1. Multiple pulmonary nodules,?etiology 2. 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 Lymphedema, 4. Abdominal pain, 5. History of liver cirrhosis and ascites. Plan. Continue patient on current therapy Patient currently on IV Cefazolin Patient on p.o. azithromycin I reviewed abdominal ultrasound, with cirrhosis, no ascites.No cholelithiasis. No nephrolithiasis. I reviewed Right knee x-ray with right total knee arthroplasty, Prosthetic lucency, moderate right knee effusion noted. And swellings that may suggest cellulitis. I reviewed CT of the pulmonary artery, with numerous pulmonary nodules Not seen from previous, and soft tissue gas in the posterior right shoulder. Get orthopedic evaluation, for aspiration and follow-up for possible prosthetic knee infection. Follow-up sputum cultures Follow-up fungal serology Follow-up Aspergillus Follow-up respiratory PCR, patient with history of RSV Follow-up ESR 101, C-reactive protein 36.2. Will consider compression dressing, when patient stable. Patient on diuretics. Will continue to follow with you. On Discharge: To be determined. Subjective: Patient reevaluated today. With no new symptoms. No fever or chills. Patient had wanted to go home, but later changed his mind after being discussed on seriousness of his infections. He had a Tmax of 98.4. Saturating at 96%. Orthopedic cleared to do aspiration of the right knee. Exam: PACU Vitals 07/04/24 1100 BP: Pulse: Resp: 18 Temp: SpO2: Allergies: Patient has no known allergies. Current Facility-Administered Medications: acetaminophen (TYLENOL) tablet 650 mg, 650 mg, Oral, Q4H PRN, Christian Porter MD albuterol (PROVENTIL) 2.5 mg /3 mL (0.083 %) nebulizer solution 2.5 mg, 2.5 mg, Nebulization, Q6H PRN, Christian Porter MD albuterol inhaler 2 puff, 2 puff, Inhalation, Q6H PRN, Christian Porter MD aluminum-magnesium hydroxide-simethicone (MAALOX PLUS) 200-200-20 mg/5 mL suspension 30 mL, 30 mL, Oral, Q4H PRN, Christian Porter MD aspirin EC tablet 81 mg, 81 mg, Oral, QAM, Christian Porter MD, 81 mg at 07/04/24 09 azithromycin (ZITHROMAX) tablet 500 mg, 500 mg, Oral, Daily, Christian Porter MD, 500 mg at 07/04/24 09 buprenorphine HCL (SUBUTEX) SL tablet 8 mg, 8 mg, Sublingual, BID, Christian Porter MD, 8 mg at 07/04/24 0922 ceFAZolin (ANCEF) IVPB 2 g (premix), 2,000 mg, Intravenous, Q8H, Christian Porter MD, Last Rate: 100 mL/hr at 07/04/24 1237, 2,000 mg at 07/04/24 1237 diltiazem (CARDIZEM CD) 24 hr capsule 240 mg, 240 mg, Oral, Daily, Christian Porter MD, 240 mg at 07/04/24927 enoxaparin (LOVENOX) syringe 40 mg, 40 mg, Subcutaneous, Daily, Christian Porter MD, 40 mg at 07/03/24911 furosemide (LASIX) tablet 40 mg, 40 mg, Oral, BID, Christian Porter MD, 40 mg at 07/04/24921 gabapentin (NEURONTIN) capsule 400 mg, 400 mg, Oral, Nightly, Christian Porter MD, 400 mg at 07/03/242050 ipratropium-albuteroL (DUO-NEB) 0.5-2.5 mg/3 ml nebulizer solution 3 mL, 3 mL, Inhalation, Q6H PRN, Christian Porter MD ketorolac (TORADOL) injection 30 mg, 30 mg, Intravenous, Q6H PRN, Bharati Ruby MD melatonin tablet 3 mg, 3 mg, Oral, Nightly PRN, Christian Porter MD mometasone-formoterol (DULERA) 200-5 mcg/actuation inhaler 2 puff, 2 puff, Inhalation, BID, Christian Porter MD, 2 puff at 07/03/242050 ondansetron (ZOFRAN-ODT) disintegrating tablet 4 mg, 4 mg, Oral, Q6H PRN OR ondansetron (ZOFRAN) injection 4 mg, 4 mg, Intravenous, Q6H PRN, Christian Porter MD pantoprazole (PROTONIX) EC tablet 20 mg, 20 mg, Oral, Daily, Christian Porter MD, 20 mg at 07/04/24921 predniSONE (DELTASONE) tablet 5 mg, 5 mg, Oral, Daily, Christian Porter MD, 5 mg at 07/04/24921 senna (SENOKOT) tablet 8.6 mg, 1 tablet, Oral, BID PRN, Christian Porter MD simethicone (MYLICON) chewable tablet 80 mg, 80 mg, Oral, Q6H PRN, Christian Porter MD [COMPLETED] Insert peripheral IV, , , Once AND Saline lock IV, , , Once AND sodium chloride (PF) (NS) flush 5 mL, 5 mL, Intravenous, PRN AND sodium chloride 0.9% (NS), 0-150 mL/hr, Intravenous, PRN, Jose Lozano MD Saline lock IV, , , Continuous AND sodium chloride (PF) (NS) flush 5 mL, 5 mL, Intravenous, PRN AND sodium chloride (PF) (NS) flush 5 mL, 5 mL, Intravenous, Q8H CASSIUS, 5 mL at 07/03/24 2200 AND sodium chloride 0.9% (NS), 0-150 mL/hr, Intravenous, PRN, Christian Porter MD spironolactone (ALDACTONE) tablet 50 mg, 50 mg, Oral, Daily, Christian Porter MD, 50 mg at 07/04/24 0922 PMH/PSH/SH/ reviewed, no change : Review of Systems: All systems were reviewed no change: Medications Reviewed. Allergies: Patient has no known allergies. Chart Reviewed. Exam Findings: HEENT: Atraumatic/Pupils equal & reactive Neck: Supple, no rigidity ENT: No oral candidiasis Chest: Lungs clear bilaterally, no wheezing, or rales CVS: Normal S1 & S2+,. Abdomen: Morbidly obese, normal symmetry, Soft/non-tender. Benign, BS+ Extremities: No Deformities, edema of the lower extremities, more on the right than the left, knee with some swellings. Skin: Intact & No Rashes, or excoriations Musculoskeletal: No joint swelling, non tender TRAIN PLANNER: Awake, and Ox3, looking depressed Wound: None but scabs of incisional scar in the right knee Tavera Catheter:None IV Access: Yes I reviewed Medications. I reviewed Labs. US Abdomen Limited Study Preliminary Result Cirrhosis with splenomegaly. No ascites. No cholelithiasis or biliary ductal dilatation. No right hydronephrosis or nephrolithiasis. /[facility] Workstation ID: [id number] Knee Right 2 Views (Standard) Final Result FINDINGS/ 1. Right total knee arthroplasty is in satisfactory position. Periprosthetic lucency is noted surrounding the femoral and tibial prostheses, concerning for hardware loosening or infection. 2. Moderate right knee joint effusion is suspected. 3. No fracture, malalignment, or other acute bony abnormality is seen. 4. Chronic linear calcification remains unchanged in the region of the distal quadriceps tendon. 5. Soft tissue swelling is noted, which may represent cellulitis in the correct clinical setting. No abnormal gas bubbles are seen. Workstation ID: [id number] CT Pulmonary Arteries Final Result 1. Suboptimal evaluation of the pulmonary arteries with only the central pulmonary arteries evaluated, if concerned for more peripheral pulmonary emboli, recommend re-imaging with earlier contrast bolus 2. Atherosclerotic changes, degenerative changes, old rib fractures, cirrhosis, ascites, varices, and splenomegaly noted 3. Numerous pulmonary nodules are seen which were not previously identified likely representing inflammatory or atypical infectious processes. Depending on patient's history, treatment and/or follow-up in 3 months could be considered to establish resolution. 4. Soft tissue gas is seen in the posterior right shoulder muscle, this is nonspecific. This may be related to injection although infection is not excluded. Workstation ID: [id number] Tibia Fibula Left 2 Views Final Result Extensive subcutaneous edema and soft tissue swelling without radiographic evidence of osteomyelitis. If there is high clinical concern, recommend MRI which is more sensitive. Workstation ID: [id number] XR Tibia Fibula Right 2 Views Final Result Diffuse soft tissue swelling and edema without radiographic evidence of osteomyelitis. If there is high clinical concern, recommend MRI. Right total knee arthroplasty with findings suspicious for component loosening. Consider obtaining dedicated right knee radiographs as clinically warranted. Workstation ID: [id number] Ultrasound Duplex Venous Legs BILATERAL Final Result XR Chest 1 View Final Result No active disease. Workstation ID: [id number] Laboratory and Additional Data Reviewed: Laboratory 07/04/24 3:26 PM Microbiology 07/04/24 3:26 PM Radiology 07/04/24 3:26 PM Medications 07/04/24 3:26 PM Lab Results Component Value Date WBC 4.66 07/03/2024 HGB 10.7 (L) 07/03/2024 HCT 35.0 (L) 07/03/2024 MCV 72.0 (L) 07/03/2024 PLT 135 (L) 07/03/2024 Lab Results Component Value Date GLUCOSE 103 (H) 07/03/2024 CALCIUM 8.4 07/03/2024 NA 137 07/03/2024 K 3.6 07/03/2024 CL 96 (L) 07/03/2024 BUN 16 07/03/2024 CREATININE 0.68 07/03/2024 Problem List Items Addressed This Visit Digestive Alcoholic cirrhosis of liver with ascites (HCC) Relevant Orders Ambulatory referral to Home Health Endocrine Type 2 diabetes mellitus without complication, without long-term current use of insulin (HCC) Relevant Orders Ambulatory referral to Home Health Adrenal insufficiency (HCC) Relevant Orders Ambulatory referral to Home Health Respiratory Chronic respiratory failure with hypoxia and hypercapnia (HCC) Relevant Medications albuterol (PROVENTIL) 2.5 mg /3 mL (0.083 %) nebulizer solution 2.5 mg albuterol inhaler 2 puff mometasone-formoterol (DULERA) 200-5 mcg/actuation inhaler 2 puff ipratropium-albuteroL (DUO-NEB) 0.5-2.5 mg/3 ml nebulizer solution 3 mL albuterol 90 mcg/actuation inhaler Other Relevant Orders Ambulatory referral to Home Health Mucopurulent chronic bronchitis (HCC) Relevant Medications albuterol (PROVENTIL) 2.5 mg /3 mL (0.083 %) nebulizer solution 2.5 mg albuterol inhaler 2 puff mometasone-formoterol (DULERA) 200-5 mcg/actuation inhaler 2 puff ipratropium-albuteroL (DUO-NEB) 0.5-2.5 mg/3 ml nebulizer solution 3 mL ceFAZolin (ANCEF) IVPB 2 g (premix) azithromycin (ZITHROMAX) tablet 500 mg albuterol 90 mcg/actuation inhaler azithromycin (ZITHROMAX) 500 MG tablet (Start on 07/05/2024) Other Relevant Orders Ambulatory referral to Home Health Cardiovascular and Mediastinum Essential hypertension Relevant Medications furosemide (LASIX) 40 MG tablet spironolactone (ALDACTONE) tablet 50 mg furosemide (LASIX) tablet 40 mg diltiazem (CARDIZEM CD) 24 hr capsule 240 mg Other Relevant Orders Ambulatory referral to Home Health Atrial fibrillation with rapid ventricular response (HCC) Relevant Medications furosemide (LASIX) 40 MG tablet aspirin EC tablet 81 mg spironolactone (ALDACTONE) tablet 50 mg furosemide (LASIX) tablet 40 mg diltiazem (CARDIZEM CD) 24 hr capsule 240 mg Other Relevant Orders Ambulatory referral to Home Health Hypotension Relevant Orders Ambulatory referral to Home Health Venous stasis dermatitis of both lower extremities Relevant Orders Ambulatory referral to Home Health Chronic diastolic congestive heart failure (HCC) Relevant Medications furosemide (LASIX) 40 MG tablet aspirin EC tablet 81 mg spironolactone (ALDACTONE) tablet 50 mg furosemide (LASIX) tablet 40 mg diltiazem (CARDIZEM CD) 24 hr capsule 240 mg Other Relevant Orders Ambulatory referral to Home Health * (Principal) Acute heart failure with preserved ejection fraction (HFpEF) (HCC) Relevant Medications furosemide (LASIX) 40 MG tablet aspirin EC tablet 81 mg spironolactone (ALDACTONE) tablet 50 mg furosemide (LASIX) tablet 40 mg diltiazem (CARDIZEM CD) 24 hr capsule 240 mg Other Relevant Orders Ambulatory referral to Home Health Musculoskeletal and Integument Osteoarthritis of right knee Relevant Orders Ambulatory referral to Home Health Ambulatory referral to Home Health Primary osteoarthritis of right knee Relevant Orders Ambulatory referral to Home Health Ulcer of left lower leg (HCC) Relevant Orders Ambulatory referral to Home Health 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) Relevant Medications ceFAZolin (ANCEF) IVPB 2 g (premix) azithromycin (ZITHROMAX) tablet 500 mg azithromycin (ZITHROMAX) 500 MG tablet (Start on 07/05/2024) Other Relevant Orders Ambulatory referral to Home Health Hematopoietic and Hemostatic Thrombocytopenia (HCC) Relevant Medications enoxaparin (LOVENOX) syringe 40 mg Other Relevant Orders Ambulatory referral to Home Health Pancytopenia (HCC) Relevant Medications enoxaparin (LOVENOX) syringe 40 mg predniSONE (DELTASONE) tablet 5 mg ketorolac (TORADOL) injection 30 mg Other Relevant Orders Ambulatory referral to Home Health Other Morbid obesity with BMI of 40.0-44.9, adult (HCC) (Chronic) Relevant Orders Ambulatory referral to Home Health Acquired pes planovalgus of right foot Relevant Orders Ambulatory referral to Home Health Uncomplicated opioid dependence (HCC) Relevant Orders Ambulatory referral to Home Health Polysubstance abuse (HCC) Relevant Orders Ambulatory referral to Home Health Leukocytosis Relevant Medications predniSONE (DELTASONE) tablet 5 mg ketorolac (TORADOL) injection 30 mg Other Relevant Orders Ambulatory referral to Home Health Nondependent cocaine abuse (HCC) Relevant Orders Ambulatory referral to Home Health Acute pain of left hip Relevant Orders Ambulatory referral to Home Health Pain of left femur Relevant Orders Ambulatory referral to Home Health Abnormal brain CT Relevant Orders Ambulatory referral to Home Health Hematoma Relevant Orders Ambulatory referral to Home Health Chronic pain Relevant Orders Ambulatory referral to Home Health Plantar ulcer of right foot (HCC) Relevant Orders Ambulatory referral to Home Health Foot infection Relevant Medications ceFAZolin (ANCEF) IVPB 2 g (premix) azithromycin (ZITHROMAX) tablet 500 mg azithromycin (ZITHROMAX) 500 MG tablet (Start on 07/05/2024) Other Relevant Orders Ambulatory referral to Home Health Cellulitis - Primary Relevant Orders Ambulatory referral to Home Health Ambulatory referral to Home Health Tub Transfer Bench Other Visit Diagnoses SOB (shortness of breath) Relevant Orders Ambulatory referral to Home Health Tub Transfer Bench Congestive heart failure, unspecified HF chronicity, unspecified heart failure type (HCC) Relevant Medications furosemide (LASIX) injection 20 mg (Completed) furosemide (LASIX) 40 MG tablet aspirin EC tablet 81 mg spironolactone (ALDACTONE) tablet 50 mg furosemide (LASIX) tablet 40 mg diltiazem (CARDIZEM CD) 24 hr capsule 240 mg furosemide (LASIX) injection 20 mg (Completed) Other Relevant Orders Ambulatory referral to Home Health I have taken time to review patient's information and having discussions with appropriate care teams, I appreciate seeing your patient, will continue to follow with you, and adjust with more information. Medical Decision Making: Moderate This note is created with the assistance of a speech-recognition program. While intending to generate a document that actually reflects the content of the visit, the document can still have some errors including those of syntax and sound a- like substitutions which may escape proofreading. In such instances, actual meaning can be extrapolated by contextual derivation. Care Management Progress Note Date: 07/04/2024 Time: 12:36 PM Patient Name: Carmen Gilman Date of : 1965 Discharge Plan: D/C Disposition: Home Health Care Services Related to Current Admission?: Yes Final D/C Agency/Destination: [facility] Plan A: Home Health Care Services Discharging Transportation Plan: Discharge Plan Status: pend medical readiness Assessment and Background Information: Pt set up w/ [facility] for at discharge. Pt interested in tub bench and this was ordered. Message to [facility] for same and Dr. Vargas to complete F2F. CM to follow. SDOH Needs Addressed: Food Insecurity, Housing Stability, Financial Resource Strain, Transportation Needs Resources Provided - Food Insecurity: Added to AVS Resources Provided - Transportation Needs: Added to AVS Resources Provided - Housing Stability: Added to AVS [facility] [place] Assessment and Plan Carmen Gilman is a 58 y.o. adult patient of Ani Worley CNP with history of anxiety, arrhythmia, asthma, COPD, hypertension, opioid dependence, secondary adrenal insufficiency presented to [facility] on 07/02/2024 with shortness of breath. HFpEF Possible pneumonia Dyspnea Lower extremity edema ARROYO for last few days [employer] Not taking meds at home as states doesn't know how to CTPA done on 07/02 with numerous pulmonary nodules, not previously identified, likely representing inflammatory or atypical infectious processes, BNP of 552, troponin negative Patient given 1 dose of Lasix in ED with some improvement Will give 20mg IV lasix x 2 Restart home spironolactone, duonebs prn Add azithromycin for infectious lung process ID recs pendings Right TKA concerned for loosening hardware Gas in shoulder Per x-ray of right tib-fib Right knee x-ray confirms this CT with gas in shoulder, Will consult Ortho, Dr. Dukes Patient is back and forth about knee aspiration Sounds like he finally agreed. Cellulitis X-ray of bilateral lower extremities possible cellulitis, no osteomyelitis identified ID recs pending No dvt Liver cirrhosis Portal hypertension Esophageal varices Hepatitis C Thrombocytopenia LFTs normal Platelets mildly decreased at 131 on admission, also with anemia with 11.1 hemoglobin Avoid liver toxins COPD On prednisone 5mg daily Pt does not know why Essential hypertension Continue home spironolactone, lasix, diltiazem Obesity Counsling provided Resolved acute medical issues Discharge Planning Medically Stable for Discharge Date: 1-2 days Patient requires continued hospitalization due to: final abx and ID recs Discharge Location: home Quality Measures DVT Prophylaxis: lovenox Tavera Catheter: absent Code Status full Primary Contact Information Subjective No acute events, initally wanting to leave AMA but now agreeable to stayig and doing a knee aspiration Objective BP 124/81 Pulse 73 Temp 97.4 F (36.3 C) (Axillary) Resp 18 Ht 6' Wt 117.9 kg (260 lb) SpO2 96% BMI 35.26 kg/m Physical Examination General Appearance: alert; chronically ill appearing; in no acute distress HEENT: Head- normocephalic; Eyes- EOMI, sclera anicteric; Throat- mucous membranes moist Cardiovascular: regular rate and rhythm; normal S1, S2; no murmurs, rubs, clicks or gallops; peripheral edema absent Respiratory: lungs clear to auscultation; without wheezes, rales or rhonchi; on nasal cannula Abdomen: soft, non-tender, non-distended Neurological: oriented x 3; normal speech; no focal findings or movement disorder noted Musculoskeletal: no significant deformity or tenderness to palpation Skin: normal coloration Psych: normal mood and affect HOME HEALTH CARE DISCHARGE PLAN If discharge needs change, please reach out to liaison assigned on treatment team as hub is not notified of new consults once team is following. Thank you. Patients needing wound care or infusions (IV or enteral feeds) should not discharge until C is completely set up. Chart reviewed. No PT/OT orders or recs on chart. [facility] accepted referral. AVS updated. ID currently following. If OPAT needed, will need to secure infusion pharmacy, SOC date, and place new [facility]. Is [facility] plan complete or pending? (List items pending) COMPLETE Name of [facility] agency: Pending / Accepted [facility] ACCEPTED Referrals sent to: (names of agencies) Please be advised that external agencies have 24 hours to respond to referrals. [facility] Infusion pharmacy: (name) Referral pending or accepted? For IV, TPN, or TF: Referral order placed? Has script been sent? (Yes/no) N/A Medication / frequency N/A Line / tube N/A [facility] (orders) placed? List services For [facility] - [facility] placed? [or waiting for ____ (i.e wound care)] YES - SN, PT, OT, RESIDENTIAL CHILD CARE COUNSELOR Please ensure pt/family understands skilled RESIDENTIAL CHILD CARE COUNSELOR is only for assisting with personal care once or twice weekly. Verify demographics (discharge address) [address] [facility] [id number] What is the primary phone number? [phone] Who is your primary care physician? Ani Worley CNP Following physician will be: (first & last name) Ani Worley CNP Do you have a teachable caregiver (TCG)? (name & phone #) lives alone Are there any special precautions or safety concerns (isolation precautions, etc)? unknown Estimated Discharge Date (NATI): TBD For non-infusion pts: If home health care is not arranged at time of discharge, liaison will follow up on referral(s) for 24 to 48 hours post-discharge to attempt securing home health care services. If home care is not arranged within that time, liaison will notify patient/family of need to follow up with PCP for home care assistance. Please note: for patients without a PCP and are scheduled a [facility] appointment, [facility] will not arrange home health care. [facility] = Ambulatory Referral for Home Health DC = Discharge NATI = Estimated Discharge Date HHC = Home Health Care IP = Infusion Pharmacy OON = Out of Network OOSA = Out of Service Area SEGUN = Resumption of Care SOC = Start of Care TCG = Teachable User Support Specialist [facility] [place] Assessment and Plan Carmen Gilman is a 58 y.o. adult patient of Ani Worley CNP with history of anxiety, arrhythmia, asthma, COPD, hypertension, opioid dependence, secondary adrenal insufficiency presented to [facility] on 07/02/2024 with shortness of breath. HFpEF Possible pneumonia Dyspnea Lower extremity edema ARROYO for last few days [employer] Not taking meds at home as states doesn't know how to CTPA done on 07/02 with numerous pulmonary nodules, not previously identified, likely representing inflammatory or atypical infectious processes, BNP of 552, troponin negative Patient given 1 dose of Lasix in ED with some improvement Will give 20mg IV lasix x 2 Restart home spironolactone, duonebs prn Add azithromycin for infectious lung process ID recs pendings Cellulitis X-ray of bilateral lower extremities possible cellulitis, no osteomyelitis identified ID recs pending No dvt Right TKA concerned for loosening hardware Gas in shoulder Per x-ray of right tib-fib Right knee x-ray confirms this CT with gas in shoulder, Will consult Ortho, Dr. Dukes Liver cirrhosis Portal hypertension Esophageal varices Hepatitis C Thrombocytopenia LFTs normal Platelets mildly decreased at 131 on admission, also with anemia with 11.1 hemoglobin Avoid liver toxins COPD On prednisone 5mg daily Pt does not know why Essential hypertension Continue home spironolactone, lasix, diltiazem Obesity Counsling provided Resolved acute medical issues Discharge Planning Medically Stable for Discharge Date: 1-2 days Patient requires continued hospitalization due to: final abx and ID recs Discharge Location: home Quality Measures DVT Prophylaxis: lovenox Tavera Catheter: absent Code Status full Primary Contact Information Subjective No acute events, states that his breathing is not baseline and that he has some shooting pains in his lower extremity veins. Objective BP 138/75 Pulse 76 Temp 97.4 F (36.3 C) Resp 16 Ht 6' Wt 117.9 kg (260 lb) SpO2 92% BMI 35.26 kg/m Physical Examination General Appearance: alert; chronically ill appearing; in no acute distress HEENT: Head- normocephalic; Eyes- EOMI, sclera anicteric; Throat- mucous membranes moist Cardiovascular: regular rate and rhythm; normal S1, S2; no murmurs, rubs, clicks or gallops; peripheral edema absent Respiratory: lungs clear to auscultation; without wheezes, rales or rhonchi; on nasal cannula Abdomen: soft, non-tender, non-distended Neurological: oriented x 3; normal speech; no focal findings or movement disorder noted Musculoskeletal: no significant deformity or tenderness to palpation Skin: normal coloration Psych: normal mood and affect documented in this encounter [facility] 07-05-2024 Katie [facility] 07-05-2024 Plan of care note [id number] ENCOUNTER FOR HOME MEDICAL EQUIPMENT PATIENT: Carmen Gilman : 1965 Statement of Care: I certify that Carmen Gilman is under my care and that I, a Nurse Practitioner, Physician's Belt Maker, or Resident working with me, had a [id number] encounter with this patient today to evaluate and discuss the need for home medical equipment. I certify that based on the findings of this evaluation, which included but was not limited to the [id number] requirements, the following home medical equipment is medically necessary: Tub transfer bench, medically necessary to facilitate safe transfers in and out of tub. Signed by: Dre Ordonez MD on 07/05/2024 [employer] Work Phone: 07-05-2024 Miscellaneous Notes [id number] ENCOUNTER FOR HOME MEDICAL EQUIPMENT PATIENT: Carmen Gilman : 1965 Statement of Care: I certify that Carmen Gilman is under my care and that I, a Nurse Practitioner, Physician's Belt Maker, or Resident working with me, had a [id number] encounter with this patient today to evaluate and discuss the need for home medical equipment. I certify that based on the findings of this evaluation, which included but was not limited to the [id number] requirements, the following home medical equipment is medically necessary: Tub transfer bench, medically necessary to facilitate safe transfers in and out of tub. Signed by: Dre Ordonez MD on 07/05/2024 Problem: Actual or potential alteration in health Goal: Absence of healthcare acquired conditions Outcome: Partially Met Goal: Knowledge of Interdisciplinary Plan of Care Outcome: Partially Met Goal: Knowledge of Enviroment Outcome: Partially Met Problem: Pain Goal: Reduced pain sensation Outcome: Partially Met Goal: Control of acute pain to acceptable level Outcome: Partially Met Goal: Able to cope with pain Outcome: Partially Met Goal: Able to achieve maximum level of physical functioning Outcome: Partially Met Goal: Able to achieve maximum level of psychosocial functioning Outcome: Partially Met Problem: Respiratory Function - Impaired Goal: Absence of impaired gas exchange signs and symptoms Outcome: Partially Met Goal: Absence of aspiration Outcome: Partially Met Goal: Effective airway clearance Outcome: Partially Met Goal: Effective breathing pattern Outcome: Partially Met Patient refusing cardiac monitoring. I educated the patient about the importance of the monitoring. Patient still refused. [id number] ENCOUNTER FOR HOME MEDICAL EQUIPMENT PATIENT: Carmen Gilman : 1965 Statement of Care: I certify that Carmen Gilman is under my care and that I, a Nurse Practitioner, Physician's Belt Maker, or Resident working with me, had a [id number] encounter with this patient today to evaluate and discuss the need for home medical equipment. I certify that based on the findings of this evaluation, which included but was not limited to the [id number]-fj-[id number] requirements, the following home medical equipment is medically necessary: shower chair for equipment to support patient's medical needs For safety with transfer in and out of shower Signed by: Cameron Vargas MD on 07/04/2024 Patient refusing IV at this time. Problem: Actual or potential alteration in health Goal: Absence of healthcare acquired conditions Outcome: Partially Met Goal: Knowledge of Interdisciplinary Plan of Care Outcome: Partially Met Goal: Knowledge of Enviroment Outcome: Partially Met Problem: Pressure Injury, Risk of Goal: Absence of pressure injury Outcome: Partially Met Problem: Pain Goal: Reduced pain sensation Outcome: Partially Met Goal: Control of acute pain to acceptable level Outcome: Partially Met Goal: Able to cope with pain Outcome: Partially Met Goal: Able to achieve maximum level of physical functioning Outcome: Partially Met Goal: Able to achieve maximum level of psychosocial functioning Outcome: Partially Met Dr Ruby notified patient refused further IV antibiotics.no new orders noted. Pt refused to order food from dietary unless he has a regular menu. Dr. Vargas notified and pt diet changed to regular per request. Problem: Actual or potential alteration in health Goal: Absence of healthcare acquired conditions Outcome: Partially Met Goal: Knowledge of Interdisciplinary Plan of Care Outcome: Partially Met Goal: Knowledge of Enviroment Outcome: Partially Met Problem: Pressure Injury, Risk of Goal: Absence of pressure injury Outcome: Partially Met Problem: Pain Goal: Reduced pain sensation Outcome: Partially Met Goal: Control of acute pain to acceptable level Outcome: Partially Met Goal: Able to cope with pain Outcome: Partially Met Goal: Able to achieve maximum level of physical functioning Outcome: Partially Met Goal: Able to achieve maximum level of psychosocial functioning Outcome: Partially Met Problem: Respiratory Function - Impaired Goal: Absence of impaired gas exchange signs and symptoms Outcome: Partially Met Goal: Absence of aspiration Outcome: Partially Met Goal: Effective airway clearance Outcome: Partially Met Goal: Effective breathing pattern Outcome: Partially Met Problem: Skin Integrity - Impaired Goal: Wound healing Outcome: Partially Met Goal: Absence of new skin breakdown Outcome: Partially Met Goal: Knowledge of skin protection measures Outcome: Partially Met documented in this encounter [facility] 07-05-2024 Note [facility] 07-04-2024 Plan of care note Problem: Actual or potential alteration in health Goal: Absence of healthcare acquired conditions Outcome: Partially Met Goal: Knowledge of Interdisciplinary Plan of Care Outcome: Partially Met Goal: Knowledge of Enviroment Outcome: Partially Met Problem: Pain Goal: Reduced pain sensation Outcome: Partially Met Goal: Control of acute pain to acceptable level Outcome: Partially Met Goal: Able to cope with pain Outcome: Partially Met Goal: Able to achieve maximum level of physical functioning Outcome: Partially Met Goal: Able to achieve maximum level of psychosocial functioning Outcome: Partially Met Problem: Respiratory Function - Impaired Goal: Absence of impaired gas exchange signs and symptoms Outcome: Partially Met Goal: Absence of aspiration Outcome: Partially Met Goal: Effective airway clearance Outcome: Partially Met Goal: Effective breathing pattern Outcome: Partially Met [facility] 07-04-2024 Note [facility] 07-04-2024 Progress note Formatting of t his note might be different from the original. Patient refusing cardiac monitoring. I educated the patient about the importance of the monitoring. Patient still refused. [facility] 07-04-2024 Progress note Formatting of t his note might be different from the original. [id number] ENCOUNTER FOR HOME MEDICAL EQUIPMENT PATIENT: Carmen Gilman : 1965 Statement of Care: I certify that Carmen Gilman is under my care and that I, a Nurse Practitioner, Physician's Belt Maker, or Resident working with me, had a [id number] encounter with this patient today to evaluate and discuss the need for home medical equipment. I certify that based on the findings of this evaluation, which included but was not limited to the [id number] requirements, the following home medical equipment is medically necessary: shower chair for equipment to support patient's medical needs For safety with transfer in and out of shower Signed by: Cameron Vargas MD on 07/04/2024 [facility] 07-04-2024 Hospital course Narrative Images from the original note were not included. [facility] [place] [employer] Carmen Souza Admitted: 07/02/2024 Discharge Date: 07/04/24 PCP Handoff Recommended Outpatient Testing Follow up with primary care and Ortho Results Pending At Discharge none Clinical Summary Assessment and Plan Carmen Gilman is a 58 y.o. adult patient of Ani Worley CNP with history of anxiety, arrhythmia, asthma, COPD, hypertension, opioid dependence, secondary adrenal insufficiency presented to [facility] on 07/02/2024 with shortness of breath. HFpEF Possible pneumonia Dyspnea Lower extremity edema ARROYO for last few days [employer]KE[employer] T[employer]ER Not taking meds at home as states doesn't know how to CTPA done on 07/02 with numerous pulmonary nodules, not previously identified, likely representing inflammatory or atypical infectious processes, BNP of 552, troponin negative Patient given 1 dose of Lasix in ED with some improvement Will give 20mg IV lasix x 2 Restart home spironolactone, duonebs prn Dc with azithro - patient leaving ama Cellulitis X-ray of bilateral lower extremities possible cellulitis, no osteomyelitis identified Right TKA concerned for loosening hardware Gas in shoulder Per x-ray of right tib-fib Right knee x-ray confirms this CT with gas in shoulder, Will consult Ortho, Dr. Dukes - recommend inapatient tap, patient refusing and wanting outpatient follow up Liver cirrhosis Portal hypertension Esophageal varices Hepatitis C Thrombocytopenia LFTs normal Platelets mildly decreased at 131 on admission, also with anemia with 11.1 hemoglobin Avoid liver toxins COPD On prednisone 5mg daily Pt does not know why Essential hypertension Continue home spironolactone, lasix, diltiazem Obesity Counsling provided Discharge Medications Discharge Medications New Medications Details azithromycin 500 MG tablet Commonly known as: ZITHROMAX Start taking on: July 05, 2024 Take 1 (one) tablet (500 mg total) by mouth daily for 3 days Start: 07/05/24. Quantity: 3 tablet Medications To Continue Details * albuterol 2.5 mg /3 mL (0.083 %) nebulizer solution Commonly known as: PROVENTIL Take 3 mL (2.5 mg total) by nebulization every 6 (six) hours as needed for wheezing . Quantity: 75 mL * albuterol 90 mcg/actuation inhaler Inhale 2 (two) puffs every 6 (six) hours as needed for wheezing . Quantity: 18 g aspirin 81 MG EC tablet Take 1 (one) tablet (81 mg total) by mouth every morning . buprenorphine HCL 8 mg SL Tablet Commonly known as: SUBUTEX Place 1 (one) tablet (8 mg total) under the tongue Fills # 75/30day supply (09/29/23) 1 tab bid and 0.5 tab at bedtime Reasons: opioid use disorder. Combivent Respimat 20-100 mcg/actuation Mist Generic drug: ipratropium-albuteroL Inhale 1 (one) puff to 2 (two) puffs every 4 to 6 hours as needed . diltiazem 240 MG 24 hr capsule Commonly known as: TIAZAC Take 1 (one) capsule (240 mg total) by mouth every morning . furosemide 40 MG tablet Commonly known as: LASIX Take 1 (one) tablet (40 mg total) by mouth 2 (two) times a day . gabapentin 400 MG capsule Commonly known as: NEURONTIN Take 1 (one) capsule (400 mg total) by mouth 4 (four) times a day . naloxone 4 mg/actuation [place] Commonly known as: NARCAN Administer 1 spray into one nostril for known or suspected opioid overdose. If patient worsens or does not respond, may repeat in 2-3 minutes. . Quantity: 2 each pantoprazole 20 MG tablet Commonly known as: PROTONIX Take 1 (one) tablet (20 mg total) by mouth daily Start: 01/09/20. Quantity: 30 tablet predniSONE 5 MG tablet Commonly known as: DELTASONE Take 1 (one) tablet (5 mg total) by mouth daily . Quantity: 30 tablet simethicone 125 MG chewable tablet Commonly known as: GAS-X Extra Strength Chew and Swallow 1 (one) tablet (125 mg total) every 6 (six) hours as needed (gas/bloating) . spironolactone 25 MG tablet Commonly known as: ALDACTONE Take 2 (two) tablets (50 mg total) by mouth daily . Quantity: 60 tablet Symbicort 160-4.5 mcg/actuation inhaler Generic drug: budesonide-formoteroL Inhale 2 (two) puffs 2 (two) times a day . * There are duplicate medications prescribed to the patient Physician(s) Follow Up: OTHER - NOT IN LIST [facility] Address: N/a Servicing [facility]: [facility] [phone] Condition at Discharge: Stable Disposition: HOME AMA I reviewed discharge recommendations with the patient in person. Patient instructions, including activity, were given to the patient/family at discharge. On day of discharge I saw Carmen Gilman and spent: > 30 minutes on discharge. Completed by: Cameron Vargas MD on 07/04/24, 11:02 AM documented in this encounter [facility] 07-04-2024 Progress note Formatting of t his note might be different from the original. Patient refusing IV at this time. [facility] 07-04-2024 Plan of care note Problem: Actual or potential alteration in health Goal: Absence of healthcare acquired conditions Outcome: Partially Met Goal: Knowledge of Interdisciplinary Plan of Care Outcome: Partially Met Goal: Knowledge of Enviroment Outcome: Partially Met Problem: Pressure Injury, Risk of Goal: Absence of pressure injury Outcome: Partially Met Problem: Pain Goal: Reduced pain sensation Outcome: Partially Met Goal: Control of acute pain to acceptable level Outcome: Partially Met Goal: Able to cope with pain Outcome: Partially Met Goal: Able to achieve maximum level of physical functioning Outcome: Partially Met Goal: Able to achieve maximum level of psychosocial functioning Outcome: Partially Met [facility] 07-04-2024 Progress note Formatting of t his note might be different from the original. Dr Ruby notified patient refused further IV antibiotics.no new orders noted. [facility] 07-03-2024 Consult note Formatting of th is note might be different from the original. ATTENDING PHYSICIAN [facility] PRIMARY CARE PHYSICIAN ANI WORLEY CNP ADMITTING PHYSICIAN CHRISTIAN PORTER MD CONSULTING PHYSICIAN [facility] Carmen is a gentleman who I have known from years gone by. He had a right knee replacement many years ago. He is unsure of exactly when it was, but we believe that it was back in December of 2019 during the COVID year. He has multiple medical issues, has been readmitted to the hospital secondary to pneumonia and bilateral lower extremity edema. He has a history of bilateral leg cellulitis, has a history of liver cirrhosis, multiple medical issues. Orthopedics was consulted. Says he really has no knee pain. He says he can live with the knee. He says it hurts on occasion, but he has no desire to talk surgery. ILLNESSES Anxiety, arrhythmia, asthma, COPD, diabetes, hypertension, opioid dependency, adrenal insufficiency. SURGERIES Appendectomy, right knee replacement, we believe in 2019. He has had right foot debridement with wound grafting. He has had left foot surgery, oral surgery, thoracic duct ligation. He has had wound VAC application. FAMILY HISTORY Heart disease. SOCIAL HISTORY Smokes on a routine basis. Admits to marijuana use. ALLERGIES None. MEDICATIONS Regimen includes Proventil, albuterol, aspirin, aspirin, Subutex, Combivent, , Lasix, Neurontin, Narcan, Protonix, prednisone, Gas-X, Aldactone, Symbicort. IMAGING Studies of the right knee show a press-fit right total knee replacement. There appears to be some loosening on the tibial component with lucencies about the tibia, possible lucencies on the anterior femoral flange also. I was informed by the hospitalist that there was some question on the pulmonary angiogram of some potential odd air in the right posterior shoulder region. I reviewed the CAT scan. There was some abnormality in the infraspinatus muscle, however, there is no other involvement. No subcutaneous abscess. This is a very odd area. PHYSICAL EXAMINATION General: The gentleman is awake, alert and oriented x3. He is pleasant. Extremities: His right shoulder exam is benign. Bilateral lower extremities have erythema with 2+ edema. Right knee has no gross instability. Extensor mechanisms intact. Mild to moderate knee effusion. IMPRESSION 1. Aseptic versus septic loosening, right knee. 2. CT scan abnormality, right infraspinatus. PLAN At this point in time, the shoulder exam is benign. At this time, I recommended aspiration of the right knee to rule out any signs of infection. He refused today. Said he absolutely does not want any aspiration of his right knee. I will continue to watch him clinically, however, he is resistant to any intervention by Orthopedics at this time. D 07/03/2024 17:03 [id number] 07/03/2024 17:50 MCB/MODL [facility] 07-03-2024 Consult note Formatting of th is note might be different from the original. ATTENDING PHYSICIAN [facility] PRIMARY CARE PHYSICIAN ANI WORLEY CNP ADMITTING PHYSICIAN CHRISTIAN PORTER MD CONSULTING PHYSICIAN [facility] Carmen is a gentleman who I have known from years gone by. He had a right knee replacement many years ago. He is unsure of exactly when it was, but we believe that it was back in December of 2019 during the . He has multiple medical issues, has been readmitted to the hospital secondary to pneumonia and bilateral lower extremity edema. He has a history of bilateral leg cellulitis, has a history of liver cirrhosis, multiple medical issues. Orthopedics was consulted. Says he really has no knee pain. He says he can live with the knee. He says it hurts on occasion, but he has no desire to talk surgery. ILLNESSES Anxiety, arrhythmia, asthma, COPD, diabetes, hypertension, opioid dependency, adrenal insufficiency. SURGERIES Appendectomy, right knee replacement, we believe in 2019. He has had right foot debridement with wound grafting. He has had left foot surgery, oral surgery, thoracic duct ligation. He has had wound VAC application. FAMILY HISTORY Heart disease. SOCIAL HISTORY Smokes on a routine basis. Admits to marijuana use. ALLERGIES None. MEDICATIONS Regimen includes Proventil, albuterol, aspirin, aspirin, Subutex, Combivent, , Lasix, Neurontin, Narcan, Protonix, prednisone, Gas-X, Aldactone, Symbicort. IMAGING Studies of the right knee show a press-fit right total knee replacement. There appears to be some loosening on the tibial component with lucencies about the tibia, possible lucencies on the anterior femoral flange also. I was informed by the hospitalist that there was some question on the pulmonary angiogram of some potential odd air in the right posterior shoulder region. I reviewed the CAT scan. There was some abnormality in the infraspinatus muscle, however, there is no other involvement. No subcutaneous abscess. This is a very odd area. PHYSICAL EXAMINATION General: The gentleman is awake, alert and oriented x3. He is pleasant. Extremities: His right shoulder exam is benign. Bilateral lower extremities have erythema with 2+ edema. Right knee has no gross instability. Extensor mechanisms intact. Mild to moderate knee effusion. IMPRESSION 1. Aseptic versus septic loosening, right knee. 2. CT scan abnormality, right infraspinatus. PLAN At this point in time, the shoulder exam is benign. At this time, I recommended aspiration of the right knee to rule out any signs of infection. He refused today. Said he absolutely does not want any aspiration of his right knee. I will continue to watch him clinically, however, he is resistant to any intervention by Orthopedics at this time. D 07/03/2024 17:03 [id number] 07/03/2024 17:50 MCB/MODL Associated Order(s): IP CONSULT TO HOME HEALTH HUB Images from the original note were not included. Per chart review noted ID following; please notify Hub liaisons if OPAT needed at [place]. Will need name/number of confirmed TCG. Name of [facility] agency: Pending / Accepted (if [facility], include region) Pending: [facility] Interim Declined: [place] [facility] (orders) created for the following services: [or waiting for ____ (i.e wound care)] SN/PT/OT/aide Verify demographics (residential address) [address] [address] What is the primary number to reach you? [phone] Who is your family physician/primary care physician? Ani Worley, [employer] General - Family Medicine [phone] Do you have a caregiver and/or teachable caregiver (list relationship, name & phone #)? CALIN GILMAN (Relative)/brother Estimated Discharge Date (NATI): 07/04 If discharge needs change, please reach out to liaison assigned on treatment team as hub is not notified of new consults once team is following. Thank you. Patient Name: Carmen Gilman [id number] [id number] 1965 Physicians: Ani Worley CNP (Family); No ref. provider found (Referring) Chief complaint: Carmen Gilman is a 58 y.o. adult presented with worsening history of shortness of breath and dry cough History: I have reviewed the patient's past medical history, past surgical history, family history, social history. Today patient was evaluated, known with history of COPD, diabetes, and opiate dependence, also had history of appendectomy, arthroplasty of the right knee in 2019. Patient also hadskin graft split thickness on the lower extremity in the past. Patient had history of chronic hepatitis C, had been treated at [facility] by Dr. Hayden. I had the opportunity of seeing patient in September 2023, at that time patient was treated for septicemia and bacteremia and also had bilateral lymphedema, with lower extremity cellulitis in the right side and RSV, he got treatment and finally discharged on p.o. ciprofloxacin. Patient presents on this visit with worsening history of shortness of breath, patient states that he could not climb to his house, he was so short of breath, and is also noticed that he has been retaining water especially in the lower extremities. Patient had a history of dry cough, and also abdominal pain. It was stated that patient just got out of the care home about 2 weeks ago and had been in an apartment. He is right leg wound has healed, except for the swelling knee still swollen some mild painful. There was no reported history of fever or chills, since on admission patient Tmax has been 98.1. He had no obvious respiratory failure, patient currently on room air,Was found with no obvious leukocytosis, WBC has been 4.43. But had decreased inflammatory marker of 36.2. D-dimer has been 14.7. Patient had an chest x-ray that showed an no active disease, DVT study shows no deep venous thrombosis, and TBI fibula right x-ray had shown diffuse soft tissue swellings, and right total knee arthroplasty with findings suspicious for component loosening. CT of the pulmonary artery had shown numerous pulmonary nodules which were not seen from previous. 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 Past Medical History: Diagnosis Date Anxiety Arrhythmia Arthritis Asthma COPD (chronic obstructive pulmonary disease) (HCC) Diabetes (HCC) Hypertension Opioid dependence (HCC) Secondary adrenal insufficiency (HCC) 04/30/2022 left AMA 04/30/22 without treatment Past Surgical History: Procedure Laterality Date APPENDECTOMY ARTHROPLASTY KNEE TOTAL ROBOTIC ASSISTED Right 01/08/2020 Procedure: Right Total Knee Replacement Robotic; Surgeon: Sofía Dukes MD; Location: Main OR; Service: Ortho-Robotics DEBRIDEMENT WITH WOUND CLOSURE POSS SKIN GRAFT LOWER EXTR Right 06/03/2023 Procedure: RIGHT LATERAL LEG Debridement with VERSAJET; Surgeon: ALEXEY Radford DPM; Location: Main OR; Service: Podiatry FOOT SURGERY Left MANDIBLE FRACTURE SURGERY ORTHOPEDIC SURGERY Right knee SKIN GRAFT SPLIT THICKNESS LOWER EXTREMITY Right 08/05/2023 Procedure: RIGHT LOWER LEG SPLIT THICKNESS SKIN GRAFT; Surgeon: Cecilia Gonzales DPM; Location: Main OR; Service: Podiatry THORACIC DUCT LIGATION 01/15/2017 THORACIC DUCT LIGATION WOUND VAC Right 06/03/2023 Procedure: APPLICATION WOUND VAC; Surgeon: ALEXEY Radford DPM; Location: Main OR; Service: Podiatry Family History Problem Relation Age of Onset Heart disease Mother Diabetes Mother Social History Socioeconomic History Marital status: Single Tobacco Use Smoking status: Former Passive exposure: Current Smokeless tobacco: Current Types: Chew Vaping Use Vaping status: Never Used Substance and Sexual Activity Alcohol use: Not Currently Drug use: Not Currently Types: Marijuana Sexual activity: Not Currently Social History Narrative Merged History Encounter Merged History Encounter Social Drivers of Health Financial Resource Strain: Low Risk (08/01/2023) Overall Financial Resource Strain (CARDIA) Difficulty of Paying Living Expenses: Not very hard Food Insecurity: Food Insecurity Present (07/03/2024) Hunger Vital Sign Worried About Running Out of Food in the Last Year: Sometimes true Ran Out of Food in the Last Year: Sometimes true Transportation Needs: No Transportation Needs (07/03/2024) PRAPARE - Transportation Lack of Transportation (Medical): No Lack of Transportation (Non-Medical): No Housing Stability: High Risk (07/03/2024) Housing Stability Vital Sign Unable to Pay for Housing in the Last Year: No Number of Times Moved in the Last Year: 3 Homeless in the Last Year: No Travel History: None Animal Contact: None Medications: I have reviewed the patient's medications. Scheduled Meds: aspirin 81 mg Oral QAM azithromycin 500 mg Oral Daily buprenorphine HCL 8 mg Sublingual BID ceFAZolin (ANCEF) IVPB 2,000 mg Intravenous Q8H diltiazem 240 mg Oral Daily enoxaparin (LOVENOX) injection 40 mg Subcutaneous Daily furosemide 40 mg Oral BID gabapentin 400 mg Oral Nightly mometasone-formoterol 2 puff Inhalation BID pantoprazole 20 mg Oral Daily predniSONE 5 mg Oral Daily sodium chloride (PF) 5 mL Intravenous Q8H CASSIUS spironolactone 50 mg Oral Daily Allergy Information: I have reviewed the patient's allergies. Patient has no known allergies. Review of Systems: Review of Systems Constitutional: Positive for fatigue. Negative for chills and fever. Respiratory: Positive for cough and shortness of breath. Negative for wheezing. Cardiovascular: Positive for leg swelling. Negative for chest pain and palpitations. Gastrointestinal: Positive for abdominal pain. Negative for abdominal distention, constipation, diarrhea, nausea and vomiting. Endocrine: Negative for polydipsia, polyphagia and polyuria. Genitourinary: Negative for dysuria, flank pain, frequency and hematuria. Musculoskeletal: Negative for joint swelling, neck pain and neck stiffness. Skin: Positive for wound. Negative for color change, pallor and rash. Neurological: Positive for weakness. Negative for dizziness, numbness and headaches. Psychiatric/Behavioral: Negative for confusion. Labs: Lab Results Component Value Date WBC 4.66 07/03/2024 HGB 10.7 (L) 07/03/2024 HCT 35.0 (L) 07/03/2024 MCV 72.0 (L) 07/03/2024 PLT 135 (L) 07/03/2024 Lab Results Component Value Date HGBA1C 4.7 07/30/2023 Lab Results Component Value Date SEDRATE 101 (H) 07/02/2024 Lab Results Component Value Date CRP 36.2 (H) 07/02/2024 Radiology: XR Knee Right 2 Views (Standard) Final Result FINDINGS/ 1. Right total knee arthroplasty is in satisfactory position. Periprosthetic lucency is noted surrounding the femoral and tibial prostheses, concerning for hardware loosening or infection. 2. Moderate right knee joint effusion is suspected. 3. No fracture, malalignment, or other acute bony abnormality is seen. 4. Chronic linear calcification remains unchanged in the region of the distal quadriceps tendon. 5. Soft tissue swelling is noted, which may represent cellulitis in the correct clinical setting. No abnormal gas bubbles are seen. Workstation ID: [id number] CT Pulmonary Arteries Final Result 1. Suboptimal evaluation of the pulmonary arteries with only the central pulmonary arteries evaluated, if concerned for more peripheral pulmonary emboli, recommend re-imaging with earlier contrast bolus 2. Atherosclerotic changes, degenerative changes, old rib fractures, cirrhosis, ascites, varices, and splenomegaly noted 3. Numerous pulmonary nodules are seen which were not previously identified likely representing inflammatory or atypical infectious processes. Depending on patient's history, treatment and/or follow-up in 3 months could be considered to establish resolution. 4. Soft tissue gas is seen in the posterior right shoulder muscle, this is nonspecific. This may be related to injection although infection is not excluded. Workstation ID: [id number] XR Tibia Fibula Left 2 Views Final Result Extensive subcutaneous edema and soft tissue swelling without radiographic evidence of osteomyelitis. If there is high clinical concern, recommend MRI which is more sensitive. Workstation ID: [id number] XR Tibia Fibula Right 2 Views Final Result Diffuse soft tissue swelling and edema without radiographic evidence of osteomyelitis. If there is high clinical concern, recommend MRI. Right total knee arthroplasty with findings suspicious for component loosening. Consider obtaining dedicated right knee radiographs as clinically warranted. Workstation ID: [id number] Ultrasound Duplex Venous Legs BILATERAL Final Result XR Chest 1 View Final Result No active disease. Workstation ID: [id number] Physical Examination: Vital Signs: BP 138/75 Pulse 76 Temp 97.4 F (36.3 C) Resp 16 Ht 6' Wt 117.9 kg (260 lb) SpO2 92% BMI 35.26 kg/m Physical Exam Constitutional: Appearance: He is well-developed. He is obese. He is ill-appearing. HENT: Head: Normocephalic. Eyes: General: Right eye: No discharge. Left eye: No discharge. Cardiovascular: Rate and Rhythm: Normal rate and regular rhythm. Pulmonary: Effort: No respiratory distress. Breath sounds: No wheezing or rales. Chest: Chest wall: No tenderness. Abdominal: General: There is distension. Tenderness: There is abdominal tenderness. There is no rebound. Comments: Obese, nondistended. Musculoskeletal: General: Swelling and tenderness present. Cervical back: Normal range of motion and neck supple. Right lower leg: Edema present. Left lower leg: Edema present. Comments: Right knee with incisional scar noted with swelling, no obvious wound gaping noted, no drainage, tender to palpation, both lower extremity with edema noted, and chronic leg changes. Right shoulder had no swelling or any limitation of movement or tenderness. Left shoulder has limitation of movement, but no obvious swellings. Skin: General: Skin is warm. Coloration: Skin is not pale. Findings: No rash. Neurological: Mental Status: He is oriented to person, place, and time. Psychiatric: Behavior: Behavior normal. Thought Content: Thought content normal. Assessment and Plan: Patient with 1. Multiple pulmonary nodules,?etiology 2. 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 Lymphedema, 4. Abdominal pain, 5. History of liver cirrhosis and ascites. Plan. Continue patient on current therapy Patient currently on IV Cefazolin Patient on p.o. azithromycin Get abdominal ultrasound to reevaluate for ascites and liver cirrhosis I reviewed Right knee x-ray with right total knee arthroplasty, Prosthetic lucency, moderate right knee effusion noted. And swellings that may suggest cellulitis. I reviewed CT of the pulmonary artery, with numerous pulmonary nodules Not seen from previous, and soft tissue gas in the posterior right shoulder. Get orthopedic evaluation, for aspiration and follow-up for possible prosthetic knee infection. Get sputum cultures Get fungal serology Get Aspergillus Get respiratory PCR, patient with history of RSV Follow-up ESR, C-reactive protein. Will consider compression dressing, when patient stable. Patient on diuretics. Will continue to follow with you. Problem List Items Addressed This Visit Other Cellulitis - Primary Other Visit Diagnoses SOB (shortness of breath) Congestive heart failure, unspecified HF chronicity, unspecified heart failure type (HCC) Relevant Medications furosemide (LASIX) injection 20 mg (Completed) furosemide (LASIX) 40 MG tablet aspirin EC tablet 81 mg spironolactone (ALDACTONE) tablet 50 mg furosemide (LASIX) tablet 40 mg (Start on 07/03/2024 6:00 PM) diltiazem (CARDIZEM CD) 24 hr capsule 240 mg furosemide (LASIX) injection 20 mg (Completed) I have taken time to review patient's information and having discussions, including discussion on antibiotics management, its side effects, benefits and risk., I appreciate seeing your patient, will continue to follow with you, and adjust with more information. Medical decision making.High. Drug Rx requiring intensive monitoring for toxicity and side effects; Extensive discussion regarding a diagnosis and multiple treatment options. This note is created with the assistance of a speech-recognition program. While intending to generate a document that actually reflects the content of the visit, the document can still have some errors including those of syntax and sound a- like substitutions which may escape proofreading. In such instances, actual meaning can be extrapolated by contextual derivation. Associated Order(s): IP CONSULT TO CARE MANAGEMENT Care Management Consult Note Date: 07/03/2024 Time: 4:05 PM Patient Name: Carmen Gilman Date of : 1965 Reason for Consult: Discharge Plan: Plan A: Home Health Care Services Discharging Transportation Plan: Discharge Plan Status: pend medical readiness Assessment and Background Information: KELLY MCCRARY Assessment: Face to Face with pt for initial transition planning/care coordination assessment. KELLY MCCRARY introduced self and role, pt voices understanding and consents to assessment. Pt is A/Ox4 and answers all questions appropriately at this time. Pt is lying in bed in no distress on room air. Care providers, pharmacy, and demographics verified/updated. Admitting Dx: SOB, COPD PCP: Meir ARELLANO Specialists: none Preferred Pharmacy: [facility] Insurance: [facility] Prescription Benefit: yes, pt states no concerns obtaining/affording meds and is compliant with meds at home. LW/HPOA: Pt does not have LNOK: Calin Gilman, brother Living Arrangements: Pt lives alone in 1 story apt with no steps and states no concerns at home. Pt is independent with aDL's. Transportation: Pt drives self and states no concerns with transportation. DME/HHC/SNF: Pt states would like tub bench at home and this RN CM to discuss with physician. Pt states no hx of HHC but would like HHC set up for discharge and states no preference on agency. Order to [facility] hub for SN/PT/OT/aide. Pt states was recently at [facility] for rehab. Pt is on disability. Pt does not smoke cigarettes or drink ETOH. Pt states no concerns with going home at time of dc and states no further questions/concerns/needs. Advised pt to ask for CM if any further question/concerns/needs arise, voices understanding. CM to follow. Pt Goal: Home Plan: Home w C, pending Living Arrangements: Alone Caregiver Identified: No Support Systems: Family members Assistance Needed: minimal Type of Residence: Private residence Prior to Admission Home Care Services: No Patient expects to be discharged to:: Home w/ HHC Does the patient need discharge transport arranged?: No Current Home Equipment: Cane SDOH Needs Addressed: Food Insecurity, Housing Stability, Financial Resource Strain, Transportation Needs Resources Provided - Food Insecurity: Added to AVS Resources Provided - Transportation Needs: Added to AVS Resources Provided - Housing Stability: Added to AVS Holistic Assessment Medication adherence problem:: No History of falls in last 6 months:: No Family aware of the patient's advance care planning wishes:: No Do you have any cultural/spiritual connections or beliefs that would impact how we deliver your care?: No Chronic pain:: (!) Yes Location of chronic pain:: legs Chronic pain timing:: Intermittent Limitation of routine activities due to chronic pain:: Yes documented in this encounter [facility] 07-03-2024 Consult note Associated Order (s): IP CONSULT TO HOME [facility] Images from the original note were not included. Per chart review noted ID following; please notify Hub liaisons if OPAT needed at DC. Will need name/number of confirmed TCG. Name of [facility] agency: Pending / Accepted (if [facility], include region) Pending: BARBARA Rogel [facility] Interim Declined: [place] [facility] (orders) created for the following services: [or waiting for ____ (i.e wound care)] SN/PT/OT/aide Verify demographics (residential address) [address] [id number] What is the primary number to reach you? [phone] Who is your family physician/primary care physician? Ani Worley CNP General - Family Medicine [phone] Do you have a caregiver and/or teachable caregiver (list relationship, name & phone #)? CALIN GILMAN (Relative)/brother Estimated Discharge Date (NATI): 07/04 If discharge needs change, please reach out to liaison assigned on treatment team as hub is not notified of new consults once team is following. Thank you. [facility] 07-03-2024 Consult note Formatting of th is note is different from the original. Patient Name: Carmen Gilman MR #: [id number] : 1965 Physicians: Ani Worley CNP (Family); No ref. provider found (Referring) Chief complaint: Carmen Gilman is a 58 y.o. adult presented with worsening history of shortness of breath and dry cough History: I have reviewed the patient's past medical history, past surgical history, family history, social history. Today patient was evaluated, known with history of COPD, diabetes, and opiate dependence, also had history of appendectomy, arthroplasty of the right knee in 2019. Patient also hadskin graft split thickness on the lower extremity in the past. Patient had history of chronic hepatitis C, had been treated at [facility] by Dr. Hayden. I had the opportunity of seeing patient in September 2023, at that time patient was treated for septicemia and bacteremia and also had bilateral lymphedema, with lower extremity cellulitis in the right side and RSV, he got treatment and finally discharged on p.o. ciprofloxacin. Patient presents on this visit with worsening history of shortness of breath, patient states that he could not climb to his house, he was so short of breath, and is also noticed that he has been retaining water especially in the lower extremities. Patient had a history of dry cough, and also abdominal pain. It was stated that patient just got out of the care home about 2 weeks ago and had been in an apartment. He is right leg wound has healed, except for the swelling knee still swollen some mild painful. There was no reported history of fever or chills, since on admission patient Tmax has been 98.1. He had no obvious respiratory failure, patient currently on room air,Was found with no obvious leukocytosis, WBC has been 4.43. But had decreased inflammatory marker of 36.2. D-dimer has been 14.7. Patient had an chest x-ray that showed an no active disease, DVT study shows no deep venous thrombosis, and TBI fibula right x-ray had shown diffuse soft tissue swellings, and right total knee arthroplasty with findings suspicious for component loosening. CT of the pulmonary artery had shown numerous pulmonary nodules which were not seen from previous. 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 Past Medical History: Diagnosis Date Anxiety Arrhythmia Arthritis Asthma COPD (chronic obstructive pulmonary disease) (HCC) Diabetes (HCC) Hypertension Opioid dependence (HCC) Secondary adrenal insufficiency (HCC) 04/30/2022 left AMA 04/30/22 without treatment Past Surgical History: Procedure Laterality Date APPENDECTOMY ARTHROPLASTY KNEE TOTAL ROBOTIC ASSISTED Right 01/08/2020 Procedure: Right Total Knee Replacement Robotic; Surgeon: Sofía Dukes MD; Location: Main OR; Service: Ortho-Robotics DEBRIDEMENT WITH WOUND CLOSURE POSS SKIN GRAFT LOWER EXTR Right 06/03/2023 Procedure: RIGHT LATERAL LEG Debridement with VERSAJET; Surgeon: ALEXEY Radford DPM; Location: Main OR; Service: Podiatry FOOT SURGERY Left MANDIBLE FRACTURE SURGERY ORTHOPEDIC SURGERY Right knee SKIN GRAFT SPLIT THICKNESS LOWER EXTREMITY Right 08/05/2023 Procedure: RIGHT LOWER LEG SPLIT THICKNESS SKIN GRAFT; Surgeon: Cecilia Gonzales DPM; Location: Main OR; Service: Podiatry THORACIC DUCT LIGATION 01/15/2017 THORACIC DUCT LIGATION WOUND VAC Right 06/03/2023 Procedure: APPLICATION WOUND VAC; Surgeon: ALEXEY Radford DPM; Location: Main OR; Service: Podiatry Family History Problem Relation Age of Onset Heart disease Mother Diabetes Mother Social History Socioeconomic History Marital status: Single Tobacco Use Smoking status: Former Passive exposure: Current Smokeless tobacco: Current Types: Chew Vaping Use Vaping status: Never Used Substance and Sexual Activity Alcohol use: Not Currently Drug use: Not Currently Types: Marijuana Sexual activity: Not Currently Social History Narrative Merged History Encounter Merged History Encounter Social Drivers of Health Financial Resource Strain: Low Risk (08/01/2023) Overall Financial Resource Strain (CARDIA) Difficulty of Paying Living Expenses: Not very hard Food Insecurity: Food Insecurity Present (07/03/2024) Hunger Vital Sign Worried About Running Out of Food in the Last Year: Sometimes true Ran Out of Food in the Last Year: Sometimes true Transportation Needs: No Transportation Needs (07/03/2024) PRAPARE - Transportation Lack of Transportation (Medical): No Lack of Transportation (Non-Medical): No Housing Stability: High Risk (07/03/2024) Housing Stability Vital Sign Unable to Pay for Housing in the Last Year: No Number of Times Moved in the Last Year: 3 Homeless in the Last Year: No Travel History: None Animal Contact: None Medications: I have reviewed the patient's medications. Scheduled Meds: aspirin 81 mg Oral QAM azithromycin 500 mg Oral Daily buprenorphine HCL 8 mg Sublingual BID ceFAZolin (ANCEF) IVPB 2,000 mg Intravenous Q8H diltiazem 240 mg Oral Daily enoxaparin (LOVENOX) injection 40 mg Subcutaneous Daily furosemide 40 mg Oral BID gabapentin 400 mg Oral Nightly mometasone-formoterol 2 puff Inhalation BID pantoprazole 20 mg Oral Daily predniSONE 5 mg Oral Daily sodium chloride (PF) 5 mL Intravenous Q8H CASSIUS spironolactone 50 mg Oral Daily Allergy Information: I have reviewed the patient's allergies. Patient has no known allergies. Review of Systems: Review of Systems Constitutional: Positive for fatigue. Negative for chills and fever. Respiratory: Positive for cough and shortness of breath. Negative for wheezing. Cardiovascular: Positive for leg swelling. Negative for chest pain and palpitations. Gastrointestinal: Positive for abdominal pain. Negative for abdominal distention, constipation, diarrhea, nausea and vomiting. Endocrine: Negative for polydipsia, polyphagia and polyuria. Genitourinary: Negative for dysuria, flank pain, frequency and hematuria. Musculoskeletal: Negative for joint swelling, neck pain and neck stiffness. Skin: Positive for wound. Negative for color change, pallor and rash. Neurological: Positive for weakness. Negative for dizziness, numbness and headaches. Psychiatric/Behavioral: Negative for confusion. Labs: Lab Results Component Value Date WBC 4.66 07/03/2024 HGB 10.7 (L) 07/03/2024 HCT 35.0 (L) 07/03/2024 MCV 72.0 (L) 07/03/2024 PLT 135 (L) 07/03/2024 Lab Results Component Value Date HGBA1C 4.7 07/30/2023 Lab Results Component Value Date SEDRATE 101 (H) 07/02/2024 Lab Results Component Value Date CRP 36.2 (H) 07/02/2024 Radiology: XR Knee Right 2 Views (Standard) Final Result FINDINGS/ 1. Right total knee arthroplasty is in satisfactory position. Periprosthetic lucency is noted surrounding the femoral and tibial prostheses, concerning for hardware loosening or infection. 2. Moderate right knee joint effusion is suspected. 3. No fracture, malalignment, or other acute bony abnormality is seen. 4. Chronic linear calcification remains unchanged in the region of the distal quadriceps tendon. 5. Soft tissue swelling is noted, which may represent cellulitis in the correct clinical setting. No abnormal gas bubbles are seen. Workstation ID: [id number] CT Pulmonary Arteries Final Result 1. Suboptimal evaluation of the pulmonary arteries with only the central pulmonary arteries evaluated, if concerned for more peripheral pulmonary emboli, recommend re-imaging with earlier contrast bolus 2. Atherosclerotic changes, degenerative changes, old rib fractures, cirrhosis, ascites, varices, and splenomegaly noted 3. Numerous pulmonary nodules are seen which were not previously identified likely representing inflammatory or atypical infectious processes. Depending on patient's history, treatment and/or follow-up in 3 months could be considered to establish resolution. 4. Soft tissue gas is seen in the posterior right shoulder muscle, this is nonspecific. This may be related to injection although infection is not excluded. Workstation ID: [id number] XR Tibia Fibula Left 2 Views Final Result Extensive subcutaneous edema and soft tissue swelling without radiographic evidence of osteomyelitis. If there is high clinical concern, recommend MRI which is more sensitive. Workstation ID: [id number] XR Tibia Fibula Right 2 Views Final Result Diffuse soft tissue swelling and edema without radiographic evidence of osteomyelitis. If there is high clinical concern, recommend MRI. Right total knee arthroplasty with findings suspicious for component loosening. Consider obtaining dedicated right knee radiographs as clinically warranted. Workstation ID: [id number] Ultrasound Duplex Venous Legs BILATERAL Final Result XR Chest 1 View Final Result No active disease. Workstation ID: [id number] Physical Examination: Vital Signs: BP 138/75 Pulse 76 Temp 97.4 F (36.3 C) Resp 16 Ht 6' Wt 117.9 kg (260 lb) SpO2 92% BMI 35.26 kg/m Physical Exam Constitutional: Appearance: He is well-developed. He is obese. He is ill-appearing. HENT: Head: Normocephalic. Eyes: General: Right eye: No discharge. Left eye: No discharge. Cardiovascular: Rate and Rhythm: Normal rate and regular rhythm. Pulmonary: Effort: No respiratory distress. Breath sounds: No wheezing or rales. Chest: Chest wall: No tenderness. Abdominal: General: There is distension. Tenderness: There is abdominal tenderness. There is no rebound. Comments: Obese, nondistended. Musculoskeletal: General: Swelling and tenderness present. Cervical back: Normal range of motion and neck supple. Right lower leg: Edema present. Left lower leg: Edema present. Comments: Right knee with incisional scar noted with swelling, no obvious wound gaping noted, no drainage, tender to palpation, both lower extremity with edema noted, and chronic leg changes. Right shoulder had no swelling or any limitation of movement or tenderness. Left shoulder has limitation of movement, but no obvious swellings. Skin: General: Skin is warm. Coloration: Skin is not pale. Findings: No rash. Neurological: Mental Status: He is oriented to person, place, and time. Psychiatric: Behavior: Behavior normal. Thought Content: Thought content normal. Assessment and Plan: Patient with 1. Multiple pulmonary nodules,?etiology 2. 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 Lymphedema, 4. Abdominal pain, 5. History of liver cirrhosis and ascites. Plan. Continue patient on current therapy Patient currently on IV Cefazolin Patient on p.o. azithromycin Get abdominal ultrasound to reevaluate for ascites and liver cirrhosis I reviewed Right knee x-ray with right total knee arthroplasty, Prosthetic lucency, moderate right knee effusion noted. And swellings that may suggest cellulitis. I reviewed CT of the pulmonary artery, with numerous pulmonary nodules Not seen from previous, and soft tissue gas in the posterior right shoulder. Get orthopedic evaluation, for aspiration and follow-up for possible prosthetic knee infection. Get sputum cultures Get fungal serology Get Aspergillus Get respiratory PCR, patient with history of RSV Follow-up ESR, C-reactive protein. Will consider compression dressing, when patient stable. Patient on diuretics. Will continue to follow with you. Problem List Items Addressed This Visit Other Cellulitis - Primary Other Visit Diagnoses SOB (shortness of breath) Congestive heart failure, unspecified HF chronicity, unspecified heart failure type (HCC) Relevant Medications furosemide (LASIX) injection 20 mg (Completed) furosemide (LASIX) 40 MG tablet aspirin EC tablet 81 mg spironolactone (ALDACTONE) tablet 50 mg furosemide (LASIX) tablet 40 mg (Start on 07/03/2024 6:00 PM) diltiazem (CARDIZEM CD) 24 hr capsule 240 mg furosemide (LASIX) injection 20 mg (Completed) I have taken time to review patient's information and having discussions, including discussion on antibiotics management, its side effects, benefits and risk., I appreciate seeing your patient, will continue to follow with you, and adjust with more information. Medical decision making.High. Drug Rx requiring intensive monitoring for toxicity and side effects; Extensive discussion regarding a diagnosis and multiple treatment options. This note is created with the assistance of a speech-recognition program. While intending to generate a document that actually reflects the content of the visit, the document can still have some errors including those of syntax and sound a- like substitutions which may escape proofreading. In such instances, actual meaning can be extrapolated by contextual derivation. [facility] 07-03-2024 Consult note Associated Order (s): IP CONSULT TO CARE MANAGEMENT Care Management Consult Note Date: 07/03/2024 Time: 4:05 PM Patient Name: Carmen Gilman Date of : 1965 Reason for Consult: Discharge Plan: Plan A: Home Health Care Services Discharging Transportation Plan: Discharge Plan Status: pend medical readiness Assessment and Background Information: KELLY MCCRARY Assessment: Face to Face with pt for initial transition planning/care coordination assessment. RN CM introduced self and role, pt voices understanding and consents to assessment. Pt is A/Ox4 and answers all questions appropriately at this time. Pt is lying in bed in no distress on room air. Care providers, pharmacy, and demographics verified/updated. Admitting Dx: SOB, COPD PCP: Meir ARELLANO Specialists: none Preferred Pharmacy: [facility] Prescription Benefit: yes, pt states no concerns obtaining/affording meds and is compliant with meds at home. LW/HPOA: Pt does not have LNOK: Calin Gilman, brother Living Arrangements: Pt lives alone in 1 story apt with no steps and states no concerns at home. Pt is independent with aDL's. Transportation: Pt drives self and states no concerns with transportation. DME/HHC/SNF: Pt states would like tub bench at home and this RN CM to discuss with physician. Pt states no hx of HHC but would like HHC set up for discharge and states no preference on agency. Order to [facility] hub for SN/PT/OT/aide. Pt states was recently at [facility] for rehab. Pt is on disability. Pt does not smoke cigarettes or drink ETOH. Pt states no concerns with going home at time of dc and states no further questions/concerns/needs. Advised pt to ask for CM if any further question/concerns/needs arise, voices understanding. CM to follow. Pt Goal: Home Plan: Home w HHC, pending Living Arrangements: Alone Caregiver Identified: No Support Systems: Family members Assistance Needed: minimal Type of Residence: Private residence Prior to Admission Home Care Services: No Patient expects to be discharged to:: Home w/ HHC Does the patient need discharge transport arranged?: No Current Home Equipment: Cane SDOH Needs Addressed: Food Insecurity, Housing Stability, Financial Resource Strain, Transportation Needs Resources Provided - Food Insecurity: Added to AVS Resources Provided - Transportation Needs: Added to AVS Resources Provided - Housing Stability: Added to AVS Holistic Assessment Medication adherence problem:: No History of falls in last 6 months:: No Family aware of the patient's advance care planning wishes:: No Do you have any cultural/spiritual connections or beliefs that would impact how we deliver your care?: No Chronic pain:: (!) Yes Location of chronic pain:: legs Chronic pain timing:: Intermittent Limitation of routine activities due to chronic pain:: Yes [facility] 07-03-2024 Progress note Formatting of t his note might be different from the original. Pt refused to order food from dietary unless he has a regular menu. Dr. Vargas notified and pt diet changed to regular per request. [facility] 07-03-2024 Hospital Discharge instructions Rachelle Yang RN - 07/03/2024 8:04 AM EST These are the low income housing and apartments in [place], [place]. Many of these apartments have waiting lists. Make sure you phone the apartments directly for full details and office hours. Do not get discouraged. Through our experience, we have learned that you will need to contact many apartments. If you stick with it, you will find that apartment that you love, with availability. AFFORDABLE APARTMENTS [facility] Apartments [address] [place] [address] Family Housing [facility] [address] [place] [address] Family Housing [facility] [address] [place] [address] Kevan Farris (Charly) Family Housing [facility] Apart[address] [place] [address] Family Housing [facility] [address] [place], [place] [address] Family Housing [facility] [address] [place] [address] [place] [address] [place] [address] Family Housing [facility] [place] [address] [place] [address] Disabled Housing [facility] [address] [place] [address] Family Housing [address] [place] [address] Family Housing [facility] Apartments [address] [place] [address] Family Housing [place] [address] [place] [address] Family Housing [facility] [facility] [address] [place] [address] Jeff [facility] [address] [place] [address] Family Housing [place] [address] [place] [address] [facility] EMERGENCY HOUSING [facility] [address] [place] [address] Alanis Daugherty Domestic Violence Detention 24 hr. Molly Poe 4 [employer] (Men only) [place] [address] [place] [address] [employer] [facility] Demar/Rent Assistance [facility] [address] [place] [address] [facility] Funds [facility] [address] [place] [address] BUDGET & FINANCIAL SERVICES [employer] [address] [place] [address] Budget counseling and debt management program. They help people attain lower credit card interest rates, stop fees and collection activity [employer] Residential State Supplement Program [address] [place] [address] Services are - information and referral services, supportive and in-home services, training, housing and service development, residential state supplement program. Care Choice [place]: Community Care Coordination and Housing Choices for seniors. 60 & older [facility] [address] [place] [address] At [facility], we believe in educating and empowering families and individuals to help them make flood money management decisions. Financial education workshops are held regularly at [facility]. The workshops are free and open to the public. Job & Family Services - [facility] [address] [place] [address] Food stamps, Medicaid, prevention, retention and contingency funds and keane assistance [facility] Section 8 Voucher ([place]) [address] [place] [address] This is a housing subsidy agent. Its function is to bring together the boiler tester of property and low/moderate - income persons who meet certain criteria. [facility] [address] [place] [address] Program areas of emphasis include - leadership development of adults and youth, management of resources, family budgeting and farm chief financial officer, nutrition, lawn and garden care and other aspects of home economics, agriculture and youth development. [facility] Service Commission [address] ([facility]) [place] [address] Temporary aid, including limited financial assistance to resident veterans of [facility] Social Security Administration [address] [place] [address] Toll Free Assist in the filing of claims for snf, disability or survivor keane benefits, as well as claims to establish eligibility for Medicare coverage. Also assist in filing claims for Supplemental Security Income Program which provides keane benefits to aged, blind or disabled people who have limited income and resources. www.socialsecurity.gov WATER FILTERER HELPER [facility] ([facility]) [address] [place] [address] Tuesday thru Tuesday 6:30 am to 5:30 pm 6 weeks to 12 yrs. 5 [facility] [address] [place] [address] Tuesday thru Tuesday 6:00 am to 6:00 pm 6 weeks to 12 yrs. [employer] [address] [place] [address] Tuesday thru Tuesday 5:30 am to 6:30 pm 6 weeks to 12 yrs. [facility] [address] [place] [address] Tuesday thru Tuesday 7:00 am to 5:30 pm 6 weeks to 12 yrs. [facility] Learning [facility] [address] [place], [place] [id number] Tuesday thru Tuesday 5:00 am to 6:00 pm 6 weeks to 12 yrs. [facility] ([employer] [facility]) [address] [place], [place] [address] [phone] Tuesday thru Tuesday 6:30 am to 5:30 pm 6 weeks to 12 yrs. [facility] [address] [place], [place] [phone] Tuesday thru Tuesday 6:30 am to 6:00 pm 3-6 year olds After school K thru 6th [facility] [address] [place], [place] [address] Tuesday thru Tuesday 6:30 am to 6:30 pm 6 weeks to 12 yrs. Rosanna [facility] [address] [facility] [address] Tuesday thru Tuesday 5:30 am to 7:00 pm 6 weeks to 12 yrs. [facility] [address] [place] [address] Tuesday thru Tuesday 7:00 am to 9:00 pm 6 weeks to 12 yrs. [place] [facility] [address] [facility] [address] Tuesday thru Tuesday 6:30 am to 6:00 pm 6 weeks to 12 yrs. [facility] [address] [place] [address] Tuesday thru Tuesday 7:00 am to 5:30 pm 6 weeks through [facility] ([facility]) [address] [place] [address] Tuesday thru Tuesday 6:30 am to 5:30 pm 6 weeks to 12 yrs. [facility] [address] [place] [address] Tuesday thru Tuesday 6:30 am to 5:30 pm 6 weeks to 11 yrs. [facility] [address] [place] [address] Tuesday thru Tuesday 5:30 am to 11:30 p.m. Tuesday 6:00 am to 6:30 pm 6 weeks to 12 yrs. 6 EMERGENCY ASSISTANCE [employer] Supporting Homeless Services in [facility]) [address] [place] [address] Clothing Hours Tues - Sat. 10:00 AM - 4:00 PM [facility] [address] [place] [address] [employer] [address] [place], [place] [phone] Provides disaster relief, support to families, and health and safety training. [facility] [address] [place], [place] [address] Food, Clothing, Activities Tuesday 10:00 AM - 6:00 PM 10:00 AM - 4:00 PM Tuesday 10:00 AM - 2:00 PM Tuesday 10:00 AM - 2:00 PM [employer] [address] [place] [address] Material assistance program which includes food, prescription, rent, and medical bills. [employer] (H.O.P.E. Pantry) [address] [place]. [address] ([phone]) [phone] Hrs.: Mon//Fri 8:30am-12:30pm 8:30-11:00am & 1:00-3:30pm Curbside Drive-Thru, Delivery by agency referral to seniors and households w/o transportation. Eligibility: walk-in, food every 30 days Intake: photo ID and proof of [facility]. residency (current piece of mail accepted as proof) [facility] Emergency Repair Funds Community Dev. Office [facility] [address] [place] [address] Provides assistance with home repairs. Community Action Commission of [facility], & [facility] HEAP Program (Winter & Summer) [address] [place] [address] Provides emergency heating and air conditioning, one-time assistance, and other utility assistance 10 [facility] (Contact Mary [facility]) [address] [place] [address] Distribution of food, clothing, linens, and toys is usually the second before [place] (december vary). program aide group work offered all year round. Emergency Food Assistance ([facility]) [address] [place], [place] [phone] [facility] parking lot at corner of [facility] & [place], [place] Free Fresh Produce Distributions . of each Month - December - Drive-through only PYO bags & boxes - One form of ID required [place] Store: [address] [place] [address] Store: [address] [place], [place] [phone]) Hours Mon. - Sun. 10:00 AM - 6:00 PM [facility] - Food Pantry [address] [place], [place] [phone] Every other Tue. 3-6pm beginning December 25 and every . 9:00 am to noon Intake: photo ID, proof of residency if different from ID Drive-thru or walk up only [employer] [address] [place] [id number] Provides weatherization and home safety services. [employer] [address] [place], [place] [phone] A homeless fdc that provides emergency, temporary housing. Information Line First [facility] [address] [facility] A telephone information and referral services Information is collected on social service agencies, support groups, churches, clubs and organizations, government offices, cultural and recreational institutions located in [facility]. [facility] welcomes you to [place] - Hot Meal Outreach [address] [place], [place] [address] Tuesday each month Livier Andrew of [facility] [place] [address] Hrs.: Every ., 6:15pm-7:00pm (Must be registered) Intake: To register, call [employer] at for screening and referral, . & Tue. 9:30am-noon [employer] [address] [place] [address] Phone calls only. Tues. & Wed. Assists in short term help. [facility] Food Pantry In[employer]ancesca Hazel [facility] [address] [place], [place] [address] Must live in [facility] or [facility] Food [facility] [address] [place] [address] Hrs.: 2nd & 4th Sat. each month 9:00-11:00am Note! Drive-thru only. No public restrooms Eligibility: [place], [place], [place] & [place] [address]. Intake: Photo ID required & proof of address, i.e. recent utility bill, medical bill, etc. with current address [facility] [address] [place], [place] Free Fresh Produce 2nd Sat. of each month - [place] annually Electorate Officer's license or State ID required [address] [place], [place] [address]steven Yeager [facility] - Food Pantry [address] [place], [place] [phone] Fridays 9:00 am to 3:00 pm Call the [facility] before coming. [facility] - Food Pantry [address] [place], [place] [phone] Hours: Tuesday of the month. 1000 am to 3:00 pm. Call [facility] with number of people in family, address, and phone number for them to call you back with fruit picker time for the next day. Must have phone number so we can call to tell you when to come and fruit picker food. [employer] residents only [facility] [address] [place], [place] [phone] Hrs.: Third Wed. of the month 9:30am, during monthly breakfast Intake: photo ID & proof of residency Eligibility: may use pantry every other month Nikhil GOODSON [address] [facility] [address] Free Fresh Produce Tuesday - January 18 4th Sat. of the month - Drive thru only Fill out intake form - no documents required [facility] [address] [place] [address] Hrs.: Third Sat. each month 9:30-10:30am Eligibility: Anyone in need, up to six times per year Intake: photo ID, proof of residency [facility] [address] [address] Hrs.: Third Sat. from 1-2pm Intake: Electorate Officer's license/photo ID Area served: [facility] [address] [place] [address] Provides free meals and food assistance Third Tuesday of every month [employer] (Supporting [employer]) [address] [place] [address] Also: [address] [place] [address] Habitat builds or remodels homes for low-income families. Hours: Tue, Fri., Sat. 11:00 AM - 5:00 PM 12:00 PM - 5:00 PM [facility] Veterans Services Commission [address] [place] [address] Provides residents with temporary emergency financial reporting manager for [facility] veterans who have met unexpected hardship or crisis. [facility] - Food Pantry [address] [place] [address] [facility] and [facility] food pantry supports families with food in times of need. Please call to set up arrangements. [facility] only. [facility] [address] [place] [address] Helps with housing, rent, food, and shoes, during school months Food Pantry: Tuesday - Tuesday 10:30am-2:00pm Eligibility: 18 or older (carry out only) Intake: Proof of [facility]. Residency (clients should seek assistance from the Chapter closest to their residence) Mary [facility] [facility] [address] [place] [address] Provides assistance with home repairs. [facility] [address] [place] [address] Direct financial reporting manager assistance with rent, utilities, etc. Furniture linkage for persons in need of furniture, school clothes, exchange in March for school age children and youth to receive school supplies and clothes. [place] [facility] [address] [place] [address] Tuesday thru Tuesday 9 am to 6 pm Tuesday 9 am to 5 pm 12 [facility] [address] [place] [address] Clothing Closet [facility] [address] [place], [place] [phone] Clothing Closet only 10 am to 5 pm $5.00 per bag; open to all [facility] [address] [place], [place] [phone] Food Pantry 6:15 pm to 7pm By appointment only [facility] [address] [place] [address] [facility] Tuesday thru Tuesday 10am to 7pm Tuesday 12pm to 6pm [employer] [address] [place], [place] [address] [employer] Store Tuesday thru Tuesday 10am to 4pm Tuesday 10am to 2 pm TRANSPORTATION Agency Transportation Advisory Committee [facility] Regional Planning Commission [address] [place] [address] Coordination of available transportation for people with disabilities, people over 60, or those who are otherwise disadvantaged. [employer] [address] [place] [address] Service available 7 days a week 24 hours a day [employer] *Bus Stop Only [address] [place] [address] Job & Family Services [facility] [address] [place] [address] The Enhanced Medicaid Transportation Services (MANUFACTURING QUALITY MANAGER) program provides non-emergency transportation for Medicaid eligible recipients. [facility] Transit (RCT) [address] [place] [address] Tickets Bus Terminal Buses cover nearly all of the [facility], portions of [facility], the [facility], and industrial areas. This is the most flexible and cost effective transportation available. [facility] RESOURCE GUIDE FCP/SOCIAL SERVICE/RESOURCE GUIDES June 19, 2020 The following attachments cannot be sent through Care Everywhere.Food Insecurity: General Info ([place]i)documented in this encounter [facility] 07-03-2024 Plan of care note Problem: Actual or potential alteration in health Goal: Absence of healthcare acquired conditions Outcome: Partially Met Goal: Knowledge of Interdisciplinary Plan of Care Outcome: Partially Met Goal: Knowledge of Enviroment Outcome: Partially Met Problem: Pressure Injury, Risk of Goal: Absence of pressure injury Outcome: Partially Met Problem: Pain Goal: Reduced pain sensation Outcome: Partially Met Goal: Control of acute pain to acceptable level Outcome: Partially Met Goal: Able to cope with pain Outcome: Partially Met Goal: Able to achieve maximum level of physical functioning Outcome: Partially Met Goal: Able to achieve maximum level of psychosocial functioning Outcome: Partially Met Problem: Respiratory Function - Impaired Goal: Absence of impaired gas exchange signs and symptoms Outcome: Partially Met Goal: Absence of aspiration Outcome: Partially Met Goal: Effective airway clearance Outcome: Partially Met Goal: Effective breathing pattern Outcome: Partially Met Problem: Skin Integrity - Impaired Goal: Wound healing Outcome: Partially Met Goal: Absence of new skin breakdown Outcome: Partially Met Goal: Knowledge of skin protection measures Outcome: Partially Met [facility] 07-02-2024 Emergency department Note Bed: 39 Expected date: Expected time: Means of arrival: Comments: 17 [facility] 07-02-2024 Emergency department Note Bed: 39 Expected date: Expected time: Means of arrival: Comments: 17 Patient with call light on, educated that patient not to have food or drink until CT results back. TO CT VIA CART CT CALLED TO ADVISE OF NEW IV SITE IN FOR SCAN PT ADVISED OF CT SCAN ORDERED AND HE STATES "IM NOT DOING THAT" PT ADVISED OF D DIMER ELEVATED AND THAT DR NEEDS TO DETERMINE IF HE MAY HAVE A BLOOD CLOT IN HIS LUNGS PT STATES " I CAN'T GO IN A TUBE I DONT LIKE IT" PT ADVISED HE CAME TO THE HOSPITAL FOR HELP AND THIS TEST IS VERY IMPORTANT TO HIS HEALTH. HE ALSO IS REFUSING TO LEAVE BP CUFF ON. AGAIN REMINDED HIM OF THE IMPORTANCE OF MONITORING THIS WAS PUT ON HIS LOWER FA PER HIS REQUEST PT DID AGREE TO HAVE CT OF CHEST Associated Order(s): ECG 12 Lead (Now) [facility] EMERGENCY DEPARTMENT ATTENDING NOTE: NAME: Carmen Gilman CSN: [id number] 58 y.o. PCP: Ani Worley CNP History: Chief Complaint: Shortness of Breath HPI: 58-year-old male past medical history of COPD diabetes hypertension not normally on oxygen, swelling in his legs that he is prescribed a diuretic for which he has been inconsistent with over the past couple days presents to the emergency department for shortness of breath symptoms with associate dyspnea on exertion does been intermittent quality over the past several days. Symptoms started today while he was attempting to walk to the bathroom. No specific alleviating or aggravating factors. No recent travel known sick contacts or antibiotic use. Patient denies any symptoms currently. Patient states that he took multiple doses of inhaler to make himself feel better. PMHx: Past Medical History: Diagnosis Date Anxiety Arrhythmia Arthritis Asthma COPD (chronic obstructive pulmonary disease) (HCC) Diabetes (HCC) Hypertension Opioid dependence (HCC) Secondary adrenal insufficiency (HCC) 04/30/2022 left AMA 04/30/22 without treatment PMSx: Past Surgical History: Procedure Laterality Date APPENDECTOMY ARTHROPLASTY KNEE TOTAL ROBOTIC ASSISTED Right 01/08/2020 Procedure: Right Total Knee Replacement Robotic; Surgeon: Sofía Dukes MD; Location: Main OR; Service: Ortho-Robotics DEBRIDEMENT WITH WOUND CLOSURE POSS SKIN GRAFT LOWER EXTR Right 06/03/2023 Procedure: RIGHT LATERAL LEG Debridement with VERSAJET; Surgeon: ALEXEY Radford DPM; Location: Main OR; Service: Podiatry FOOT SURGERY Left MANDIBLE FRACTURE SURGERY ORTHOPEDIC SURGERY Right knee SKIN GRAFT SPLIT THICKNESS LOWER EXTREMITY Right 08/05/2023 Procedure: RIGHT LOWER LEG SPLIT THICKNESS SKIN GRAFT; Surgeon: Cecilia Gonzales DPM; Location: Main OR; Service: Podiatry THORACIC DUCT LIGATION 01/15/2017 THORACIC DUCT LIGATION WOUND VAC Right 06/03/2023 Procedure: APPLICATION WOUND VAC; Surgeon: ALEXEY Radford DPM; Location: Main OR; Service: Podiatry FAM. Hx: Family History Problem Relation Age of Onset Heart disease Mother Diabetes Mother SOC. Hx: Social History Socioeconomic History Marital status: Single Tobacco Use Smoking status: Former Passive exposure: Current Smokeless tobacco: Current Types: Chew Vaping Use Vaping status: Never Used Substance and Sexual Activity Alcohol use: Not Currently Drug use: Not Currently Types: Marijuana Sexual activity: Not Currently Social History Narrative Merged History Encounter Merged History Encounter Social Drivers of Health Financial Resource Strain: Low Risk (08/01/2023) Overall Financial Resource Strain (CARDIA) Difficulty of Paying Living Expenses: Not very hard Food Insecurity: No Food Insecurity (08/01/2023) Hunger Vital Sign Worried About Running Out of Food in the Last Year: Never true Ran Out of Food in the Last Year: Never true Transportation Needs: No Transportation Needs (08/01/2023) PRAPARE - Transportation Lack of Transportation (Medical): No Lack of Transportation (Non-Medical): No Housing Stability: Low Risk (08/01/2023) Housing Stability Vital Sign Unable to Pay for Housing in the Last Year: No Number of Places Lived in the Last Year: 2 Unstable Housing in the Last Year: No MEDs: Previous Medications Medication Sig diltiazem (TIAZAC) 240 MG 24 hr capsule Take 1 (one) capsule (240 mg total) by mouth every morning . gabapentin (NEURONTIN) 400 MG capsule Take 1 (one) capsule (400 mg total) by mouth 4 (four) times a day . pantoprazole (PROTONIX) 20 MG tablet Take 1 (one) tablet (20 mg total) by mouth daily Start: 01/09/20. spironolactone (ALDACTONE) 25 MG tablet Take 2 (two) tablets (50 mg total) by mouth daily . albuterol (PROVENTIL) 2.5 mg /3 mL (0.083 %) nebulizer solution Take 3 mL (2.5 mg total) by nebulization every 6 (six) hours as needed for wheezing . albuterol 90 mcg/actuation inhaler Inhale 2 (two) puffs every 6 (six) hours as needed for wheezing . aspirin 81 MG EC tablet Take 1 (one) tablet (81 mg total) by mouth every morning . buprenorphine HCL (SUBUTEX) [address] 1 (one) tablet (8 mg total) under the tongue Fills # 75/30day supply (09/29/23) 1 tab bid and 0.5 tab at bedtime Reasons: opioid use disorder. Combivent Respimat 20-100 mcg/actuation Mist Inhale 1 (one) puff to 2 (two) puffs every 4 to 6 hours as needed . furosemide (LASIX) 40 MG tablet Take 1 (one) tablet (40 mg total) by mouth 2 (two) times a day . naloxone (NARCAN) 4 mg/actuation [place] Administer 1 spray into one nostril for known or suspected opioid overdose. If patient worsens or does not respond, may repeat in 2-3 minutes. . (Patient not taking: Reported on 01/17/2024 .) predniSONE (DELTASONE) 5 MG tablet Take 1 (one) tablet (5 mg total) by mouth daily . simethicone (GAS-X Extra Strength) 125 MG chewable tablet Chew and Swallow 1 (one) tablet (125 mg total) every 6 (six) hours as needed (gas/bloating) . Symbicort 160-4.5 mcg/actuation inhaler Inhale 2 (two) puffs 2 (two) times a day . ALL: No Known Allergies Physical Exam: Patient Vitals for the past 24 hrs: BP Temp Temp src Pulse Resp SpO2 Height Weight 07/03/24 0000 138/77 98.1 F (36.7 C) -- 80 (!) 23 95 % -- -- 07/02/24 2330 -- -- -- 79 15 95 % -- -- 07/02/24 2300 133/84 -- -- 79 13 93 % -- -- 07/02/24 2230 136/71 97.8 F (36.6 C) -- 79 18 96 % -- -- 07/02/24 2130 (!) 147/77 97.8 F (36.6 C) -- 77 16 93 % -- -- 07/02/24 2100 120/75 -- -- 71 14 96 % -- -- 07/02/24 2030 129/76 -- -- 78 (!) 20 96 % -- -- 07/02/241999 119/84 -- -- 79 (!) 19 96 % -- -- 07/02/24 1930 (!) 132/97 -- -- 89 15 92 % -- -- 07/02/24 1815 -- -- -- 78 (!) 19 97 % -- -- 07/02/24 1800 93/73 -- -- 77 16 100 % -- -- 07/02/24 1745 -- -- -- 79 (!) 19 97 % -- -- 07/02/24 1730 117/76 -- -- 79 16 99 % -- -- 07/02/24 1715 -- -- -- 80 13 97 % -- -- 07/02/24 1700 (!) 117/99 -- -- 80 (!) 21 97 % -- -- 07/02/24 1615 -- -- -- 77 15 95 % -- -- 07/02/24 1600 133/68 -- -- 72 14 99 % -- -- 07/02/24 1545 -- -- -- 84 (!) 22 97 % -- -- 07/02/24 1530 (!) 148/76 -- -- 83 15 96 % -- -- 07/02/24 1500 126/81 -- -- 83 15 95 % -- -- 07/02/24 1445 -- -- -- 94 18 96 % -- -- 07/02/24 1434 (!) 142/78 -- -- 97 16 96 % -- -- 07/02/24 1432 -- 98.1 F (36.7 C) Oral -- -- -- -- -- 07/02/24 1429 -- -- -- -- -- -- 6' 117.9 kg (260 lb) Physical Exam Vitals and nursing note reviewed. Constitutional: General: He is awake. Appearance: He is obese. HENT: Head: Normocephalic and atraumatic. Nose: Nose normal. Eyes: General: Lids are normal. No scleral icterus. Cardiovascular: Rate and Rhythm: Normal rate and regular rhythm. Musculoskeletal: Comments: Bilateral lower extremity swelling that is mildly pitting in nature. Slightly red (states same color and unchanged for his baseline) Pulmonary: Effort: Pulmonary effort is normal. No accessory muscle usage or respiratory distress. Skin: General: Skin is warm. Neurological: Mental Status: He is alert and oriented to person, place, and time. Laboratory & Radiological Imaging (if done): Labs Reviewed COMPREHENSIVE METABOLIC PANEL - Abnormal; Notable for the following components: Result Value Glucose 132 (*) Total Protein 8.1 (*) All other components within normal limits Narrative: [facility] Laboratory Services has implemented the eGFR calculation approach that does not have a coefficient for race that conforms to the NKF-ASN Task Force Recommendations. D-DIMER, QUANTITATIVE - Abnormal; Notable for the following components: D-Dimer 14.75 (*) All other components within normal limits Narrative: A D-dimer concentration of <0.5 micrograms per milliliter FEU is considered a low probability for pulmonary embolus (PE) and deep venous thrombosis (DVT). Results of this test should always be interpreted in conjunction with the patient's medical history,clinical presentation, and other findings. Clinical diagnosis should not be based on the results of the D-dimer alone. NT PRO BNP - Abnormal; Notable for the following components: NT-Pro BNP 552 (*) All other components within normal limits Narrative: Pride Study Cut-offs Rule In: < /= 50 Years >450 pg/mL 51 Years - 75 Years >900 pg/mL 76 Years - 99 Years >1800 pg/mL Rule Out: All patients <300 pg/mL URINALYSIS - Abnormal; Notable for the following components: Blood, Urine Small (*) All other components within normal limits Narrative: Microscopic examination is performed on all urinalysis samples and only positive findings are reported. The test for blood on the chemical analytic portion of urinalysis may also be positive due to hemoglobinuria and myoglobinuria and if red blood cells are present they are quantified by microscopic examination. SEDIMENTATION RATE - Abnormal; Notable for the following components: Sed Rate 101 (*) All other components within normal limits CRP, INFLAMMATION - Abnormal; Notable for the following components: CRP(Inflammation) 36.2 (*) All other components within normal limits CBC WITH AUTO DIFFERENTIAL - Abnormal; Notable for the following components: WBC 4.43 (*) Hemoglobin 11.1 (*) Hematocrit 36.1 (*) MCV 72.9 (*) MCH 22.4 (*) MCHC 30.7 (*) Platelets 131 (*) RDW - CV 15.4 (*) Lymphocytes Abs 0.54 (*) Monocytes Abs 0.26 (*) All other components within normal limits CBC AND DIFFERENTIAL Narrative: The following orders were created for panel order CBC and Differential. Procedure Abnormality Status --------- ------ CBC Auto Differential[[id number]] Abnormal Final result Please view results for these tests on the individual orders. TROPONIN COMPREHENSIVE METABOLIC PANEL CBC XR Knee Right 2 Views (Standard) Final Result FINDINGS/ 1. Right total knee arthroplasty is in satisfactory position. Periprosthetic lucency is noted surrounding the femoral and tibial prostheses, concerning for hardware loosening or infection. 2. Moderate right knee joint effusion is suspected. 3. No fracture, malalignment, or other acute bony abnormality is seen. 4. Chronic linear calcification remains unchanged in the region of the distal quadriceps tendon. 5. Soft tissue swelling is noted, which may represent cellulitis in the correct clinical setting. No abnormal gas bubbles are seen. Workstation ID: [id number] CT Pulmonary Arteries Final Result 1. Suboptimal evaluation of the pulmonary arteries with only the central pulmonary arteries evaluated, if concerned for more peripheral pulmonary emboli, recommend re-imaging with earlier contrast bolus 2. Atherosclerotic changes, degenerative changes, old rib fractures, cirrhosis, ascites, varices, and splenomegaly noted 3. Numerous pulmonary nodules are seen which were not previously identified likely representing inflammatory or atypical infectious processes. Depending on patient's history, treatment and/or follow-up in 3 months could be considered to establish resolution. 4. Soft tissue gas is seen in the posterior right shoulder muscle, this is nonspecific. This may be related to injection although infection is not excluded. Workstation ID: [id number] XR Tibia Fibula Left 2 Views Final Result Extensive subcutaneous edema and soft tissue swelling without radiographic evidence of osteomyelitis. If there is high clinical concern, recommend MRI which is more sensitive. Workstation ID: [id number] [id number] Tibia Fibula Right 2 Views Final Result Diffuse soft tissue swelling and edema without radiographic evidence of osteomyelitis. If there is high clinical concern, recommend MRI. Right total knee arthroplasty with findings suspicious for component loosening. Consider obtaining dedicated right knee radiographs as clinically warranted. Workstation ID: [id number] Ultrasound Duplex Venous Legs BILATERAL Final Result XR Chest 1 View Final Result No active disease. Workstation ID: [id number] Ultrasound duplex venous leg right (Results Pending) Procedures: ECG 12 Lead (Now) Date/Time: 07/02/2024 3:33 PM Performed by: Jose Lozano MD Authorized by: Jose Lozano MD Interpreted by ED attending physician Rhythm: sinus rhythm BPM: 75 normal SC interval normal QRS interval Comments: Normal [place] not prolonged QRS not prolonged Qt<1/2 rr interval No STEMI nsr ED Course / Medical Decision Making: I did personally review Carmen's past medical history, surgical history, social history, as well as family history (when relevant). After reviewing the items above, I did look at previous medical documentation. Social conditions impacting the patients care are: Lives in facility Some Differential Diagnoses Include: CHF COPD pneumonia pneumothorax cellulitis Labs/Imaging: esr crp elevated ED course: Patient presents to the emergency department with history and exam suggestive of fluid overload. Patient with shortness of breath symptoms have since resolved. Patient does report some dyspnea on exertion as well. Bilateral lower extremities are swollen. Vancomycin ordered Will order for further management of bl cellulitis with eleevated inflammatory markers Shared decision making used: yes Code Status: Full . Clinical Impression: 1. Cellulitis of lower extremity, unspecified laterality 2. SOB (shortness of breath) 3. Congestive heart failure, unspecified HF chronicity, unspecified heart failure type (HCC) Disposition: ED Disposition ED Disposition Hospitalize Condition -- Comment Reason for inpatient over two midnights: HFpEF Jose Lozano MD, MD ED Attending Physician [facility] Jose Lozano MD 07/03/24 0058 Pt to ed for sudden onset of shortness of breath. Patient has COPD but states the shortness of breath was worse this time. Patient took approx 7-10 hits of his inhaler and states he feels, "back to normal." Denies chest pain. Bed: 17 Expected date: Expected time: Means of arrival: Comments: r1 documented in this encounter [facility] 07-02-2024 History and physical [place] [facility] [place] [facility] Patient Name: Carmen Gilman : 1965 MR #: [id number] Admit Date: 07/02/2024 Physicians: Ani Worley CNP (Family); No ref. provider found (Referring) Carmen Gilman is a 58 y.o. adult patient of Ani Worley CNP with history of anxiety, arrhythmia, asthma, COPD, hypertension, opioid dependence, secondary adrenal insufficiency presented to [facility] on 07/02/2024 with shortness of breath. HFpEF Possible pneumonia Dyspnea Lower extremity edema ARROYO for last few days [employer] Not taking meds at home as states doesn't know how to CTPA done on 07/02 with numerous pulmonary nodules, not previously identified, likely representing inflammatory or atypical infectious processes, soft tissue gas in the right posterior shoulder, suboptimal evaluation of the pulmonary arteries, atherosclerotic changes, old rib fractures, cirrhosis, ascites, varices BNP of 552, troponin negative Patient given 1 dose of Lasix in ED with some improvement Will give 20mg IV lasix x 2 and reevaluate in AM - defer to day team to give more but will start home oral dose lasix on 07/03 Restart home spironolactone, duonebs prn Add azithromycin for infectious lung process Consult ID given unclear infectious process in lungs as well as opinion regarding cellulitis Cellulitis X-ray of bilateral lower extremities possible cellulitis, no osteomyelitis identified CRP of 36.2 WBCs of 4.4 Vancomycin and Zosyn given in ED Will check RLE duplex given Rt>Lt swelling Unclear if this is chronic hyperpigmentation vs cellulitis but will treat with cefazolin Consult ID for below and pt known to them Check RLE US Right TKA concerned for loosening hardware Per x-ray of right tib-fib Right knee x-ray confirms this Will consult Ortho, Dr. Dukes Liver cirrhosis Portal hypertension Esophageal varices Hepatitis C Thrombocytopenia LFTs normal Platelets mildly decreased at 131 on admission, also with anemia with 11.1 hemoglobin Avoid liver toxins COPD On prednisone 5mg daily Pt does not know why Essential hypertension Continue home spironolactone, lasix, diltiazem Residence prior to admission: house or apartment Was patient transferred from outlying hospital or ED no Quality Measures DVT Prophylaxis: lovenox Tavera Catheter: absent Medication Reconciliation: Verified Admitted with these risk variables:Chronic Liver Disease. Please see assessment and plan for further details. Estimated Date of Discharge greater than 2 midnights Code Status Full Code; code status verified on 07/02/2024 with patient (capacity intact) Chief Complaint shortness of breath History of Present Illness Carmen Gilman is a 58 y.o. adult patient of Ani Worley CNP with history of anxiety, arrhythmia, asthma, COPD, diabetes, hypertension, opioid dependence, secondary adrenal insufficiency presented to [facility] on 07/02/2024 with shortness of breath. Pt states that he has had ARROYO today. Pt sat down as he was very short of breath. Pt noticed some swelling in his legs recently as well. He states he's not taking his meds. He just got out of the care home 2 weeks ago. Pt had been at the SNF since 10/2023. He then moved into an apartment behind the SNF. Pt denies fevers, chills, chest pain, nausea, vomiting, diarrhea or constipation. Pt notes pain in his feet when he walks. He also notes he has pain in his knees but it is not worse lately. Past Medical History Past Medical History: Diagnosis Date Anxiety Arrhythmia Arthritis Asthma COPD (chronic obstructive pulmonary disease) (HCC) Diabetes (HCC) Hypertension Opioid dependence (HCC) Secondary adrenal insufficiency (HCC) 04/30/2022 left AMA 04/30/22 without treatment Past Surgical History Past Surgical History: Procedure Laterality Date APPENDECTOMY ARTHROPLASTY KNEE TOTAL ROBOTIC ASSISTED Right 01/08/2020 Procedure: Right Total Knee Replacement Robotic; Surgeon: Sofía Dukes MD; Location: Main OR; Service: Ortho-Robotics DEBRIDEMENT WITH WOUND CLOSURE POSS SKIN GRAFT LOWER EXTR Right 06/03/2023 Procedure: RIGHT LATERAL LEG Debridement with VERSAJET; Surgeon: ALEXEY Radford DPM; Location: Main OR; Service: Podiatry FOOT SURGERY Left MANDIBLE FRACTURE SURGERY ORTHOPEDIC SURGERY Right knee SKIN GRAFT SPLIT THICKNESS LOWER EXTREMITY Right 08/05/2023 Procedure: RIGHT LOWER LEG SPLIT THICKNESS SKIN GRAFT; Surgeon: Cecilia Gonzales DPM; Location: Main OR; Service: Podiatry THORACIC DUCT LIGATION 01/15/2017 THORACIC DUCT LIGATION WOUND VAC Right 06/03/2023 Procedure: APPLICATION WOUND VAC; Surgeon: ALEXEY Radford DPM; Location: Main OR; Service: Podiatry Family History Family History Problem Relation Age of Onset Heart disease Mother Diabetes Mother Social History Social History Tobacco Use Smoking Status Former Passive exposure: Current Smokeless Tobacco Current Types: Chew Social History Substance and Sexual Activity Alcohol Use Not Currently Social History Substance and Sexual Activity Drug Use Not Currently Types: Marijuana Allergy Information I have reviewed the patient's allergies. Patient has no known allergies. Home Medications Home medications were reviewed. Review Of Systems All relevant systems have been reviewed and are negative except as noted in HPI or below Physical Examination BP 120/75 Pulse 71 Temp 98.1 F (36.7 C) (Oral) Resp 14 Ht 6' Wt 117.9 kg (260 lb) SpO2 96% BMI 35.26 kg/m General Appearance: alert; acute on chronically ill appearing; in no acute distress HEENT: Head- normocephalic; Eyes- EOMI, sclera anicteric; Throat- mucous membranes moist, poor dentition Cardiovascular: regular rate and rhythm; normal S1, S2; no murmurs, rubs, clicks or gallops; peripheral edema present right>left Respiratory: exp wheeze bilaterally, no rhonchi, diminished bilaterally, on room air Abdomen: obese, soft, non-tender, non-distended Neurological: oriented x 3; normal speech; no focal findings or movement disorder noted Musculoskeletal: no significant deformity or tenderness to palpation Skin: hyperpigmentation of bilateral calves, right >left with possibly some erythema of right leg Psych: normal mood and affect [facility] 07-02-2024 History and physical note [facility] [place] [facility] Patient Name: Carmen Gilman : 1965 MR #: [id number] Admit Date: 07/02/2024 Physicians: Ani Worley CNP (Family); No ref. provider found (Referring) Carmen Gimlan is a 58 y.o. adult patient of Ani Worley CNP with history of anxiety, arrhythmia, asthma, COPD, hypertension, opioid dependence, secondary adrenal insufficiency presented to [facility] on 07/02/2024 with shortness of breath. HFpEF Possible pneumonia Dyspnea Lower extremity edema ARROYO for last few days [employer] Not taking meds at home as states doesn't know how to CTPA done on 07/02 with numerous pulmonary nodules, not previously identified, likely representing inflammatory or atypical infectious processes, soft tissue gas in the right posterior shoulder, suboptimal evaluation of the pulmonary arteries, atherosclerotic changes, old rib fractures, cirrhosis, ascites, varices BNP of 552, troponin negative Patient given 1 dose of Lasix in ED with some improvement Will give 20mg IV lasix x 2 and reevaluate in AM - defer to day team to give more but will start home oral dose lasix on 07/03 Restart home spironolactone, duonebs prn Add azithromycin for infectious lung process Consult ID given unclear infectious process in lungs as well as opinion regarding cellulitis Cellulitis X-ray of bilateral lower extremities possible cellulitis, no osteomyelitis identified CRP of 36.2 WBCs of 4.4 Vancomycin and Zosyn given in ED Will check RLE duplex given Rt>Lt swelling Unclear if this is chronic hyperpigmentation vs cellulitis but will treat with cefazolin Consult ID for below and pt known to them Check RLE US Right TKA concerned for loosening hardware Per x-ray of right tib-fib Right knee x-ray confirms this Will consult Dr. Blayne Isaacs Liver cirrhosis Portal hypertension Esophageal varices Hepatitis C Thrombocytopenia LFTs normal Platelets mildly decreased at 131 on admission, also with anemia with 11.1 hemoglobin Avoid liver toxins COPD On prednisone 5mg daily Pt does not know why Essential hypertension Continue home spironolactone, lasix, diltiazem Residence prior to admission: house or apartment Was patient transferred from outlying hospital or ED no Quality Measures DVT Prophylaxis: lovenox Tavera Catheter: absent Medication Reconciliation: Verified Admitted with these risk variables:Chronic Liver Disease. Please see assessment and plan for further details. Estimated Date of Discharge greater than 2 midnights Code Status Full Code; code status verified on 07/02/2024 with patient (capacity intact) Chief Complaint shortness of breath History of Present Illness Carmen Gilman is a 58 y.o. adult patient of Ani Worley CNP with history of anxiety, arrhythmia, asthma, COPD, diabetes, hypertension, opioid dependence, secondary adrenal insufficiency presented to [facility] on 07/02/2024 with shortness of breath. Pt states that he has had ARROYO today. Pt sat down as he was very short of breath. Pt noticed some swelling in his legs recently as well. He states he's not taking his meds. He just got out of the care home 2 weeks ago. Pt had been at the SNF since 10/2023. He then moved into an apartment behind the SNF. Pt denies fevers, chills, chest pain, nausea, vomiting, diarrhea or constipation. Pt notes pain in his feet when he walks. He also notes he has pain in his knees but it is not worse lately. Past Medical History Past Medical History: Diagnosis Date Anxiety Arrhythmia Arthritis Asthma COPD (chronic obstructive pulmonary disease) (HCC) Diabetes (HCC) Hypertension Opioid dependence (HCC) Secondary adrenal insufficiency (HCC) 04/30/2022 left AMA 04/30/22 without treatment Past Surgical History Past Surgical History: Procedure Laterality Date APPENDECTOMY ARTHROPLASTY KNEE TOTAL ROBOTIC ASSISTED Right 01/08/2020 Procedure: Right Total Knee Replacement Robotic; Surgeon: Sofía Dukes MD; Location: Main OR; Service: Ortho-Robotics DEBRIDEMENT WITH WOUND CLOSURE POSS SKIN GRAFT LOWER EXTR Right 06/03/2023 Procedure: RIGHT LATERAL LEG Debridement with VERSAJET; Surgeon: ALEXEY Radford DPM; Location: Main OR; Service: Podiatry FOOT SURGERY Left MANDIBLE FRACTURE SURGERY ORTHOPEDIC SURGERY Right knee SKIN GRAFT SPLIT THICKNESS LOWER EXTREMITY Right 08/05/2023 Procedure: RIGHT LOWER LEG SPLIT THICKNESS SKIN GRAFT; Surgeon: Cecilia Gonzales DPM; Location: Main OR; Service: Podiatry THORACIC DUCT LIGATION 01/15/2017 THORACIC DUCT LIGATION WOUND VAC Right 06/03/2023 Procedure: APPLICATION WOUND VAC; Surgeon: ALEXEY Radford DPM; Location: Main OR; Service: Podiatry Family History Family History Problem Relation Age of Onset Heart disease Mother Diabetes Mother Social History Social History Tobacco Use Smoking Status Former Passive exposure: Current Smokeless Tobacco Current Types: Chew Social History Substance and Sexual Activity Alcohol Use Not Currently Social History Substance and Sexual Activity Drug Use Not Currently Types: Marijuana Allergy Information I have reviewed the patient's allergies. Patient has no known allergies. Home Medications Home medications were reviewed. Review Of Systems All relevant systems have been reviewed and are negative except as noted in HPI or below Physical Examination BP 120/75 Pulse 71 Temp 98.1 F (36.7 C) (Oral) Resp 14 Ht 6' Wt 117.9 kg (260 lb) SpO2 96% BMI 35.26 kg/m General Appearance: alert; acute on chronically ill appearing; in no acute distress HEENT: Head- normocephalic; Eyes- EOMI, sclera anicteric; Throat- mucous membranes moist, poor dentition Cardiovascular: regular rate and rhythm; normal S1, S2; no murmurs, rubs, clicks or gallops; peripheral edema present right>left Respiratory: exp wheeze bilaterally, no rhonchi, diminished bilaterally, on room air Abdomen: obese, soft, non-tender, non-distended Neurological: oriented x 3; normal speech; no focal findings or movement disorder noted Musculoskeletal: no significant deformity or tenderness to palpation Skin: hyperpigmentation of bilateral calves, right >left with possibly some erythema of right leg Psych: normal mood and affect documented in this encounter [facility] 07-02-2024 Note 1. Suboptimal evaluation of the pulmonary arteries with only the central pulmonary arteries evaluated, if concerned for more peripheral pulmonary emboli, recommend re-imaging with earlier contrast bolus 2. Atherosclerotic changes, degenerative changes, old rib fractures, cirrhosis, ascites, varices, and splenomegaly noted 3. Numerous pulmonary nodules are seen which were not previously identified likely representing inflammatory or atypical infectious processes. Depending on patient's history, treatment and/or follow-up in 3 months could be considered to establish resolution. 4. Soft tissue gas is seen in the posterior right shoulder muscle, this is nonspecific. This may be related to injection although infection is not excluded. Workstation ID: [id number] [facility] 07-02-2024 Emergency department Note Patient with call light on, educated that patient not to have food or drink until CT results back. [facility] 07-02-[address] VIA CART [facility] 07-02-[address] CALLED TO ADVISE OF NEW IV SITE IN FOR SCAN [facility] 07-02-2024 Emergency department Note PT ADVISED OF CT SCAN ORDERED AND HE STATES "IM NOT DOING THAT" PT ADVISED OF D DIMER ELEVATED AND THAT DR NEEDS TO DETERMINE IF HE MAY HAVE A BLOOD CLOT IN HIS LUNGS PT STATES " I CAN'T GO IN A TUBE I DONT LIKE IT" PT ADVISED HE CAME TO THE HOSPITAL FOR HELP AND THIS TEST IS VERY IMPORTANT TO HIS HEALTH. HE ALSO IS REFUSING TO LEAVE BP CUFF ON. AGAIN REMINDED HIM OF THE IMPORTANCE OF MONITORING THIS WAS PUT ON HIS LOWER FA PER HIS REQUEST PT DID AGREE TO HAVE CT OF CHEST [facility] 07-02-2024 Physician Emergency department Note Associated Order(s): ECG 12 Lead (Now) [facility] ATTENDING NOTE: NAME: Carmen Gilman CSN: [id number] 58 y.o. PCP: Ani Worley CNP History: Chief Complaint: Shortness of Breath HPI: 58-year-old male past medical history of COPD diabetes hypertension not normally on oxygen, swelling in his legs that he is prescribed a diuretic for which he has been inconsistent with over the past couple days presents to the emergency department for shortness of breath symptoms with associate dyspnea on exertion does been intermittent quality over the past several days. Symptoms started today while he was attempting to walk to the bathroom. No specific alleviating or aggravating factors. No recent travel known sick contacts or antibiotic use. Patient denies any symptoms currently. Patient states that he took multiple doses of inhaler to make himself feel better. PMHx: Past Medical History: Diagnosis Date Anxiety Arrhythmia Arthritis Asthma COPD (chronic obstructive pulmonary disease) (HCC) Diabetes (HCC) Hypertension Opioid dependence (HCC) Secondary adrenal insufficiency (HCC) 04/30/2022 left AMA 04/30/22 without treatment PMSx: Past Surgical History: Procedure Laterality Date APPENDECTOMY ARTHROPLASTY KNEE TOTAL ROBOTIC ASSISTED Right 01/08/2020 Procedure: Right Total Knee Replacement Robotic; Surgeon: Sofía Dukes MD; Location: Main OR; Service: Ortho-Robotics DEBRIDEMENT WITH WOUND CLOSURE POSS SKIN GRAFT LOWER EXTR Right 06/03/2023 Procedure: RIGHT LATERAL LEG Debridement with VERSAJET; Surgeon: ALEXEY Radford DPM; Location: Main OR; Service: Podiatry FOOT SURGERY Left MANDIBLE FRACTURE SURGERY ORTHOPEDIC SURGERY Right knee SKIN GRAFT SPLIT THICKNESS LOWER EXTREMITY Right 08/05/2023 Procedure: RIGHT LOWER LEG SPLIT THICKNESS SKIN GRAFT; Surgeon: Cecilia Gonzales DPM; Location: Main OR; Service: Podiatry THORACIC DUCT LIGATION 01/15/2017 THORACIC DUCT LIGATION WOUND VAC Right 06/03/2023 Procedure: APPLICATION WOUND VAC; Surgeon: ALEXEY Radford DPM; Location: Main OR; Service: Podiatry FAM. Hx: Family History Problem Relation Age of Onset Heart disease Mother Diabetes Mother SOC. Hx: Social History Socioeconomic History Marital status: Single Tobacco Use Smoking status: Former Passive exposure: Current Smokeless tobacco: Current Types: Chew Vaping Use Vaping status: Never Used Substance and Sexual Activity Alcohol use: Not Currently Drug use: Not Currently Types: Marijuana Sexual activity: Not Currently Social History Narrative Merged History Encounter Merged History Encounter Social Drivers of Health Financial Resource Strain: Low Risk (08/01/2023) Overall Financial Resource Strain (CARDIA) Difficulty of Paying Living Expenses: Not very hard Food Insecurity: No Food Insecurity (08/01/2023) Hunger Vital Sign Worried About Running Out of Food in the Last Year: Never true Ran Out of Food in the Last Year: Never true Transportation Needs: No Transportation Needs (08/01/2023) PRAPARE - Transportation Lack of Transportation (Medical): No Lack of Transportation (Non-Medical): No Housing Stability: Low Risk (08/01/2023) Housing Stability Vital Sign Unable to Pay for Housing in the Last Year: No Number of Places Lived in the Last Year: 2 Unstable Housing in the Last Year: No MEDs: Previous Medications Medication Sig diltiazem (TIAZAC) 240 MG 24 hr capsule Take 1 (one) capsule (240 mg total) by mouth every morning . gabapentin (NEURONTIN) 400 MG capsule Take 1 (one) capsule (400 mg total) by mouth 4 (four) times a day . pantoprazole (PROTONIX) 20 MG tablet Take 1 (one) tablet (20 mg total) by mouth daily Start: 01/09/20. spironolactone (ALDACTONE) 25 MG tablet Take 2 (two) tablets (50 mg total) by mouth daily . albuterol (PROVENTIL) 2.5 mg /3 mL (0.083 %) nebulizer solution Take 3 mL (2.5 mg total) by nebulization every 6 (six) hours as needed for wheezing . albuterol 90 mcg/actuation inhaler Inhale 2 (two) puffs every 6 (six) hours as needed for wheezing . aspirin 81 MG EC tablet Take 1 (one) tablet (81 mg total) by mouth every morning . buprenorphine HCL (SUBUTEX) [address] 1 (one) tablet (8 mg total) under the tongue Fills # 30day supply (09/29/23) 1 tab bid and 0.5 tab at bedtime Reasons: opioid use disorder. Combivent Respimat 20-100 mcg/actuation Mist Inhale 1 (one) puff to 2 (two) puffs every 4 to 6 hours as needed . furosemide (LASIX) 40 MG tablet Take 1 (one) tablet (40 mg total) by mouth 2 (two) times a day . naloxone (NARCAN) 4 mg/actuation [place] Administer 1 spray into one nostril for known or suspected opioid overdose. If patient worsens or does not respond, may repeat in 2-3 minutes. . (Patient not taking: Reported on 01/17/2024 .) predniSONE (DELTASONE) 5 MG tablet Take 1 (one) tablet (5 mg total) by mouth daily . simethicone (GAS-X Extra Strength) 125 MG chewable tablet Chew and Swallow 1 (one) tablet (125 mg total) every 6 (six) hours as needed (gas/bloating) . Symbicort 160-4.5 mcg/actuation inhaler Inhale 2 (two) puffs 2 (two) times a day . ALL: No Known Allergies Physical Exam: Patient Vitals for the past 24 hrs: BP Temp Temp src Pulse Resp SpO2 Height Weight 07/03/24 0000 138/77 98.1 F (36.7 C) -- 80 (!) 23 95 % -- -- 07/02/24 2330 -- -- -- 79 15 95 % -- -- 07/02/24 2300 133/84 -- -- 79 13 93 % -- -- 07/02/240 136/71 97.8 F (36.6 C) -- 79 18 96 % -- -- 07/02/240 (!) 147/77 97.8 F (36.6 C) -- 77 16 93 % -- -- 07/02/24 2100 120/75 -- -- 71 14 96 % -- -- 07/02/242029 129/76 -- -- 78 (!) 20 96 % -- -- 07/02/241999 119/84 -- -- 79 (!) 19 96 % -- -- 07/02/24 1930 (!) 132/97 -- -- 89 15 92 % -- -- 11/11/24 1815 -- -- -- 78 (!) 19 97 % -- -- 07/02/24 1800 93/73 -- -- 77 16 100 % -- -- 07/02/24 1745 -- -- -- 79 (!) 19 97 % -- -- 07/02/24 1730 117/76 -- -- 79 16 99 % -- -- 07/02/24 1715 -- -- -- 80 13 97 % -- -- 07/02/24 1700 (!) 117/99 -- -- 80 (!) 21 97 % -- -- 07/02/24 1615 -- -- -- 77 15 95 % -- -- 07/02/24 1600 133/68 -- -- 72 14 99 % -- -- 07/02/24 1545 -- -- -- 84 (!) 22 97 % -- -- 07/02/24 1530 (!) 148/76 -- -- 83 15 96 % -- -- 07/02/24 1500 126/81 -- -- 83 15 95 % -- -- 07/02/24 1445 -- -- -- 94 18 96 % -- -- 07/02/24 1434 (!) 142/78 -- -- 97 16 96 % -- -- 07/02/24 1432 -- 98.1 F (36.7 C) Oral -- -- -- -- -- 07/02/24 1429 -- -- -- -- -- -- 6' 117.9 kg (260 lb) Physical Exam Vitals and nursing note reviewed. Constitutional: General: He is awake. Appearance: He is obese. HENT: Head: Normocephalic and atraumatic. Nose: Nose normal. Eyes: General: Lids are normal. No scleral icterus. Cardiovascular: Rate and Rhythm: Normal rate and regular rhythm. Musculoskeletal: Comments: Bilateral lower extremity swelling that is mildly pitting in nature. Slightly red (states same color and unchanged for his baseline) Pulmonary: Effort: Pulmonary effort is normal. No accessory muscle usage or respiratory distress. Skin: General: Skin is warm. Neurological: Mental Status: He is alert and oriented to person, place, and time. Laboratory & Radiological Imaging (if done): Labs Reviewed COMPREHENSIVE METABOLIC PANEL - Abnormal; Notable for the following components: Result Value Glucose 132 (*) Total Protein 8.1 (*) All other components within normal limits Narrative: [facility] Services has implemented the eGFR calculation approach that does not have a coefficient for race that conforms to the NKF-ASN Task Force Recommendations. D-DIMER, QUANTITATIVE - Abnormal; Notable for the following components: D-Dimer 14.75 (*) All other components within normal limits Narrative: A D-dimer concentration of <0.5 micrograms per milliliter FEU is considered a low probability for pulmonary embolus (PE) and deep venous thrombosis (DVT). Results of this test should always be interpreted in conjunction with the patient's medical history,clinical presentation, and other findings. Clinical diagnosis should not be based on the results of the D-dimer alone. NT PRO BNP - Abnormal; Notable for the following components: NT-Pro BNP 552 (*) All other components within normal limits Narrative: Pride Study Cut-offs Rule In: < /= 50 Years >450 pg/mL 51 Years - 75 Years >900 pg/mL 76 Years - 99 Years >1800 pg/mL Rule Out: All patients <300 pg/mL URINALYSIS - Abnormal; Notable for the following components: Blood, Urine Small (*) All other components within normal limits Narrative: Microscopic examination is performed on all urinalysis samples and only positive findings are reported. The test for blood on the chemical analytic portion of urinalysis may also be positive due to hemoglobinuria and myoglobinuria and if red blood cells are present they are quantified by microscopic examination. SEDIMENTATION RATE - Abnormal; Notable for the following components: Sed Rate 101 (*) All other components within normal limits CRP, INFLAMMATION - Abnormal; Notable for the following components: CRP(Inflammation) 36.2 (*) All other components within normal limits CBC WITH AUTO DIFFERENTIAL - Abnormal; Notable for the following components: WBC 4.43 (*) Hemoglobin 11.1 (*) Hematocrit 36.1 (*) MCV 72.9 (*) MCH 22.4 (*) MCHC 30.7 (*) Platelets 131 (*) RDW - CV 15.4 (*) Lymphocytes Abs 0.54 (*) Monocytes Abs 0.26 (*) All other components within normal limits CBC AND DIFFERENTIAL Narrative: The following orders were created for panel order CBC and Differential. Procedure Abnormality Status --------- ------ CBC Auto Differential[[id number]] Abnormal Final result Please view results for these tests on the individual orders. TROPONIN COMPREHENSIVE METABOLIC PANEL CBC XR Knee Right 2 Views (Standard) Final Result FINDINGS/ 1. Right total knee arthroplasty is in satisfactory position. Periprosthetic lucency is noted surrounding the femoral and tibial prostheses, concerning for hardware loosening or infection. 2. Moderate right knee joint effusion is suspected. 3. No fracture, malalignment, or other acute bony abnormality is seen. 4. Chronic linear calcification remains unchanged in the region of the distal quadriceps tendon. 5. Soft tissue swelling is noted, which may represent cellulitis in the correct clinical setting. No abnormal gas bubbles are seen. Workstation ID: [id number] CT Pulmonary Arteries Final Result 1. Suboptimal evaluation of the pulmonary arteries with only the central pulmonary arteries evaluated, if concerned for more peripheral pulmonary emboli, recommend re-imaging with earlier contrast bolus 2. Atherosclerotic changes, degenerative changes, old rib fractures, cirrhosis, ascites, varices, and splenomegaly noted 3. Numerous pulmonary nodules are seen which were not previously identified likely representing inflammatory or atypical infectious processes. Depending on patient's history, treatment and/or follow-up in 3 months could be considered to establish resolution. 4. Soft tissue gas is seen in the posterior right shoulder muscle, this is nonspecific. This may be related to injection although infection is not excluded. Workstation ID: [id number] XR Tibia Fibula Left 2 Views Final Result Extensive subcutaneous edema and soft tissue swelling without radiographic evidence of osteomyelitis. If there is high clinical concern, recommend MRI which is more sensitive. Workstation ID: [id number] XR Tibia Fibula Right 2 Views Final Result Diffuse soft tissue swelling and edema without radiographic evidence of osteomyelitis. If there is high clinical concern, recommend MRI. Right total knee arthroplasty with findings suspicious for component loosening. Consider obtaining dedicated right knee radiographs as clinically warranted. Workstation ID: [id number] Ultrasound Duplex Venous Legs BILATERAL Final Result XR Chest 1 View Final Result No active disease. Workstation ID: [id number] Ultrasound duplex venous leg right (Results Pending) Procedures: ECG 12 Lead (Now) Date/Time: 07/02/2024 3:33 PM Performed by: Jose Lozano MD Authorized by: Jose Lozano MD Interpreted by ED attending physician Rhythm: sinus rhythm BPM: 75 normal SC interval normal QRS interval Comments: Normal [place] not prolonged QRS not prolonged Qt<1/2 rr interval No STEMI nsr ED Course / Medical Decision Making: I did personally review Carmen's past medical history, surgical history, social history, as well as family history (when relevant). After reviewing the items above, I did look at previous medical documentation. Social conditions impacting the patients care are: Lives in facility Some Differential Diagnoses Include: CHF COPD pneumonia pneumothorax cellulitis Labs/Imaging: esr crp elevated ED course: Patient presents to the emergency department with history and exam suggestive of fluid overload. Patient with shortness of breath symptoms have since resolved. Patient does report some dyspnea on exertion as well. Bilateral lower extremities are swollen. Vancomycin ordered Will order for further management of bl cellulitis with eleevated inflammatory markers Shared decision making used: yes Code Status: Full . Clinical Impression: 1. Cellulitis of lower extremity, unspecified laterality 2. SOB (shortness of breath) 3. Congestive heart failure, unspecified HF chronicity, unspecified heart failure type (HCC) Disposition: ED Disposition ED Disposition Hospitalize Condition -- Comment Reason for inpatient over two midnights: HFpEF Jose Lozano MD, MD ED Attending Physician [facility] Jose Lozano MD 07/03/24 0058 [facility] 07-02-2024 Emergency department Triage note Pt to ed for sudden onset of shortness of breath. Patient has COPD but states the shortness of breath was worse this time. Patient took approx 7-10 hits of his inhaler and states he feels, "back to normal." Denies chest pain. [facility] 07-02-2024 Emergency department Note Bed: 17 Expected date: Expected time: Means of arrival: Comments: r1 [facility] 01-17-2024 History of Present illness Narrative Images from the original note were not included. Established Patient Visit ALEXEY Radford DPM Patient Name: Carmen Gilman. . Date of : 1965, 58 y.o.. Gender: male. Subjective: Patient is a 58-year-old male who present to clinic today with complaints of chronic right foot pain. Patient was following with my partner for right lower extremity wound and this remains well-healed. Patient relates that he went to a different doctor to receive a second opinion about his leg and foot and was told that he would either need reconstructive surgery or a custom brace. Patient relates that he has deliberated about it and decided he wants to try custom bracing so he is here for reevaluation today and to see if this is a possibility for him. Patient is a diabetic but does not take any medication. Physical Examination: BP (!) 142/84 (BP Location: Left arm, Patient Position: Sitting, BP Cuff Size: X-large Adult) Pulse 78 Temp 98.4 F (36.9 C) (Infrared) SpO2 93% General Appearance: Alert, cooperative, no distress, appears stated age. Podiatric Exam Vascular: DP and PT pulses are minimally palpable, 1/4. Capillary refill time is brisk to distal digits, less than 3 seconds. Skin temperature is warm to warm from proximal tibial tuberosity to distal digits. No dependent rubor. Neurological: Epicritic and protopathic sensation diminished to bilateral lower extremities. Dermatologic: Skin is diffusely xerotic but has well-healed ulceration to the right leg. Graft is intact without any evidence of failure. Patient has well-delineated hyperkeratotic lesion to the plantar central aspect of the right midfoot not preulcerative in nature. Musculoskeletal: Left foot and ankle overall rectus alignment. Right foot is largely planus with large rocker-bottom deformity and 2 areas of prominence. Foot is in substantial valgus and collapse. Patient unable to tolerate standing exam. Muscle strength testing 5 out of 5 to all tested muscle groups with exception to inversion on the right. Ankle joint range of motion limited with knee extended to slightly creasingly flex. Subtalar joint midtarsal joint largely rigid in nature. Diagnoses: 1. Midfoot collapse of right lower extremity AFO Custom Right Miscellaneous DME Equipment 2. Pes planus of both feet AFO Custom Right Miscellaneous DME Equipment 3. Type 2 diabetes mellitus without complication, without long-term current use of insulin (HCC) AFO Custom Right Miscellaneous DME Equipment 4. Peripheral vascular disease (HCC) AFO Custom Right Miscellaneous DME Equipment 5. Arthritis of midfoot, unspecified laterality AFO Custom Right Miscellaneous DME Equipment 6. Chronic venous hypertension, unspecified laterality AFO Custom Right Miscellaneous DME Equipment Imagin views of the right foot and 2 views the ankle reviewed today AP MO and lateral the foot and AP ankle mortise of the ankle. No acute fracture of note but mild subluxation of the midfoot and rear foot with significant eversion and talar head uncovering. Substantial midfoot joint space narrowing. Again no maciej dislocation. Substantial decrease in calcaneal inclination angle increase in talar declination angle. Negative Meary's angle. Assessment/Plan: Patient was seen and evaluated. Discussed all clinical and radiographic findings Educated patient on etiology and pathophysiology associated with various foot maladies per Discussed various treatment options available patient. Patient would like to move forward with conservative treatment of the right foot midfoot collapse and arthritis in the form of an custom AFO. Accommodative orthotic prescribed for the left. Patient will have great benefit with this. Did discuss possibility of surgical intervention in the form of triple arthrodesis. Patient would need to have additional workup prior to any type of surgical intervention. Patient to follow-up as needed. This note was partially created using voice recognition software and is inherently subject to errors including those of syntax and "sound-alike" substitutions which may escape proofreading. In such instances, original meaning may be extrapolated by contextual derivation. ALEXEY Radford DPM Podiatric Foot & Ankle Surgery documented in this encounter [facility] 09-09-2023 History of Present illness Narrative Images from the original note were not included. Established Patient Visit Cecilia Gonzales DPM Patient Name: Carmen Gilman. . Date of : 1965, 58 y.o.. Gender: male. Subjective: Patient is a pleasant 58-year-old male who presents to clinic for follow-up evaluation regarding his recent split-thickness skin grafting to the right leg. Patient states that he has been doing very well. He has kept his dressing clean and dry as instructed. He has been minimized ambulation as well. Denies any recent trauma or injury. Fever macro Physical Examination: BP (!) 168/80 Pulse 88 Temp 98 F (36.7 C) (Infrared) Resp 16 SpO2 91% General Appearance: Alert, cooperative, no distress, appears stated age. Podiatric Exam Vascular: DP and PT pulses are palpable. Capillary refill time is less than 3 seconds to distal digits. Skin temperature is warm to warm from proximal tibial tuberosity to distal digit. Neurological: Gross sensation is intact. Protective sensation is diminished using the Stuart Jared monofilament. Dermatologic: See images below. Musculoskeletal: Patient is able to wiggle digits. Ankle joint range of motion is intact. Muscle strength is 5/5 to dorsiflexors, plantar flexors, inverters and everters. Compartments soft and compressible. No calf pain Diagnoses: 1. 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) Wound 08/05/23 1 Surgical Wound Upper Leg Anterior;Right (Active) Wound Image 08/26/23 1356 Wound 06/03/23 1 Surgical Wound Pre-tibial Right (Active) Wound Image 09/02/23 1435 Wound 08/05/23 1 Surgical Wound Upper Leg Anterior;Right (Active) Wound Image 09/02/23 1434 Assessment/Plan: Patient was seen and evaluated. Discussed all clinical findings Patient is doing very well postoperatively. Patient's right thigh harvest site is healed. Patient's right leg split-thickness skin graft site is also healed today and fully incorporated. Applied vaseline and tubigrip Patient is instructed to keep dressing clean and dry. Patient is to also continue to minimize weightbearing. All questions were answered to patient satisfaction. Patient understands to call with any questions or concerns. This note was partially created using voice recognition software and is inherently subject to errors including those of syntax and "sound-alike" substitutions which may escape proofreading. In such instances, original meaning may be extrapolated by contextual derivation. Cecilia Gonzales DPM, MS Podiatric Physician & Surgeon documented in this encounter [facility] 09-02-2023 History of Present illness Narrative Images from the original note were not included. Established Patient Visit Cecilia Gonzales DPM Patient Name: Carmen Gilman. . Date of : 1965, 58 y.o.. Gender: male. Subjective: Patient is a pleasant 58-year-old male who presents to clinic for follow-up evaluation regarding his recent split-thickness skin grafting to the right leg. Patient states that he has been doing very well. He has kept his dressing clean and dry as instructed. He has been minimized ambulation as well. Denies any recent trauma or injury. Fever macro Physical Examination: BP (!) 145/83 Pulse 89 Temp 98.6 F (37 C) (Infrared) Resp 16 General Appearance: Alert, cooperative, no distress, appears stated age. Podiatric Exam Vascular: DP and PT pulses are palpable. Capillary refill time is less than 3 seconds to distal digits. Skin temperature is warm to warm from proximal tibial tuberosity to distal digit. Neurological: Gross sensation is intact. Protective sensation is diminished using the Stuart Jared monofilament. Dermatologic: See images below. Musculoskeletal: Patient is able to wiggle digits. Ankle joint range of motion is intact. Muscle strength is 5/5 to dorsiflexors, plantar flexors, inverters and everters. Compartments soft and compressible. No calf pain Diagnoses: 1. 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) Wound 08/05/23 1 Surgical Wound Upper Leg Anterior;Right (Active) Wound Image 08/26/23 1356 Wound 06/03/23 1 Surgical Wound Pre-tibial Right (Active) Wound Image 09/02/23 1435 Wound 08/05/23 1 Surgical Wound Upper Leg Anterior;Right (Active) Wound Image 09/02/23 1434 Assessment/Plan: Patient was seen and evaluated. Discussed all clinical findings Patient is doing very well postoperatively. Patient's right thigh harvest site is healing appropriately. Patient's right leg split-thickness skin graft site is incorporating very well, more than 95% Applied adaptic, 4 x 4's, Kerlix and Coban from toes to knee. Patient is instructed to keep dressing clean and dry. Patient is to also continue to minimize weightbearing. All questions were answered to patient satisfaction. Patient understands to call with any questions or concerns. Follow-up in 1 week for reevaluation. This note was partially created using voice recognition software and is inherently subject to errors including those of syntax and "sound-alike" substitutions which may escape proofreading. In such instances, original meaning may be extrapolated by contextual derivation. Cecilia Gonzales DPM, MS Podiatric Physician & Surgeon documented in this encounter [facility] 09-02-2023 Instructions Jolanta Jones RN - 09/02/2023 2:56 PM EST Adaptic, 4x4's, kerlix, coban from toes to knee Do not change dressing Keep clean and dry F/u 1 week documented in this encounter [facility] 08-26-2023 History of Present illness Narrative Complete note to follow documented in this encounter [facility] 08-26-2023 History of Present illness Narrative Images from the original note were not included. Established Patient Visit Cecilia Gonzales DPM Patient Name: Carmen Gilman. . Date of : 1965, 58 y.o.. Gender: male. Subjective: Patient is a pleasant 58-year-old male who presents to clinic for follow-up evaluation regarding his recent split-thickness skin grafting to the right leg. Patient states that he has been doing very well. He has kept his dressing clean and dry as instructed. He has been minimized ambulation as well. Denies any recent trauma or injury. Fever macro Physical Examination: BP (!) 173/91 Pulse 85 Temp 98.3 F (36.8 C) Resp 16 SpO2 92% General Appearance: Alert, cooperative, no distress, appears stated age. Podiatric Exam Vascular: DP and PT pulses are palpable. Capillary refill time is less than 3 seconds to distal digits. Skin temperature is warm to warm from proximal tibial tuberosity to distal digit. Neurological: Gross sensation is intact. Protective sensation is diminished using the Stuart Jared monofilament. Dermatologic: See images below. Musculoskeletal: Patient is able to wiggle digits. Ankle joint range of motion is intact. Muscle strength is 5/5 to dorsiflexors, plantar flexors, inverters and everters. Compartments soft and compressible. No calf pain Diagnoses: 1. 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) Wound 08/05/23 1 Surgical Wound Upper Leg Anterior;Right (Active) Wound Image 08/26/23 2878 Assessment/Plan: Patient was seen and evaluated. Discussed all clinical findings Patient is doing very well postoperatively. Patient's right thigh harvest site is healing appropriately. Patient's right leg split-thickness skin graft site is incorporating very well, more than 90% All tammy were removed today without incident. Apply Gavino to wound at the site of staple removal and any small open areas, followed by 4 x 4's, Kerlix and Teddy bandage from toes to knee. Patient is instructed to keep dressing clean and dry. Patient is to also continue to minimize weightbearing. All questions were answered to patient satisfaction. Patient understands to call with any questions or concerns. Follow-up in 1 week for reevaluation. This note was partially created using voice recognition software and is inherently subject to errors including those of syntax and "sound-alike" substitutions which may escape proofreading. In such instances, original meaning may be extrapolated by contextual derivation. Cecilia Gonzales DPM, MS Podiatric Physician & Surgeon documented in this encounter [facility] 08-26-2023 Instructions Jessenia Cruz RN - 08/26/2023 1:55 PM EST Vaseline to bilateral legs dry skin Irrigate with saline and pad dry Apply gavino to all open wound edges Adaptic 4x4's, kerlix, coban from toes to knee F/u 1 week documented in this encounter [facility] 08-19-2023 History of Present illness Narrative Associated Order(s): Wound Debridement Post-Procedure Diagnose(s): Chronic ulcer of left leg with fat layer exposed (HCC) Images from the original note were not included. Wound 05/18/23 Skin Tear Pre-tibial Left (Active) Wound Image 08/19/23 1106 Wound Length (cm) 1.5 cm 07/29/23 1319 Wound Width (cm) 1.3 cm 07/29/23 1319 Wound Depth (cm) 0.1 cm 07/29/23 1319 Wound Surface Area (cm^2) 1.95 cm^2 07/29/23 1319 Wound Volume (cm^3) 0.195 cm^3 07/29/23 1319 Area % Change 0 07/29/23 1319 Wound Healing % 96 07/29/231318 Wound Progress No change 07/15/23 0747 State of Healing Non-healing 07/15/23 0747 Non-staged Wound Description Partial thickness 07/08/23 1335 Drainage Amount Small 07/29/23 1319 Drainage Description Serosanguineous 07/29/23 1319 Odor None 07/29/23 1319 Wound Margin Attached to wound base 07/15/23 0747 Adherent Yellow Slough % 1-25% 07/29/23 1319 Epithelialization % 1-25% 07/15/23 0747 Granulation % Bright red 07/29/23 1319 Exposed Structure None 07/29/231318 Wound Bed Characteristics Clean;Granulation tissue 07/15/23 0747 Tiffany-wound Assessment Intact 07/29/23 1319 Cleansed Soap and water 07/29/23 1319 Primary Dressing Collagen with silver 08/19/23 1244 Secondary Dressing Gauze pad;Gauze roll 08/19/23 1244 Compression Dressing Other (Comment) 08/19/23 1244 Wound 06/03/23 1 Surgical Wound Pre-tibial Right (Active) Wound Image 07/29/23 1315 Wound Length (cm) 16.5 cm 07/29/23 1315 Wound Width (cm) 8 cm 07/29/23 1315 Wound Depth (cm) 0.1 cm 07/29/23 1315 Wound Surface Area (cm^2) 132 cm^2 07/29/23 1315 Wound Volume (cm^3) 13.2 cm^3 07/29/23 1315 Area % Change 0 07/29/23 1315 Wound Healing % 34 07/29/23 1315 Wound Progress No change 07/15/23 0747 State of Healing Fully granulated 07/15/23 0747 Non-staged Wound Description Partial thickness 07/15/23 0747 Drainage Amount Moderate 07/29/23 1315 Drainage Description Serosanguineous;Green 07/29/23 1315 Odor None 07/29/23 1315 Wound Margin Attached to wound base 07/15/23 0747 Adherent Yellow Slough % 1-25% 07/01/23 1336 Epithelialization % 1-25% 07/15/23 0747 Granulation % 51-75%;Bright red 07/15/23 0747 Exposed Structure None 07/01/23 1336 Wound Bed Characteristics Clean;Granulation tissue 07/15/23 0747 Tiffany-wound Assessment Edema 07/29/23 1315 Cleansed Soap and water 07/29/23 1315 Compression Dressing Other (Comment) 08/19/23 1243 Wound 07/15/23 Calf Right (Active) Wound Image 07/15/23 0744 Wound Progress Initial exam 07/15/23 0748 State of Healing Fully granulated 07/15/23 0748 Non-staged Wound Description Partial thickness 07/15/23 0748 Drainage Amount Scant 07/15/23 0748 Drainage Description Serosanguineous 07/15/23 0748 Odor None 07/15/23 0748 Wound Bed Characteristics Clean;Granulation tissue 07/15/23 0748 Tiffany-wound Assessment Temperature WNL 07/15/23 0748 Cleansed Soap and water 07/15/23 0748 Wound 07/29/23 Knee Anterior;Right (Active) Wound Image 08/19/23 1106 Wound 08/05/23 1 Surgical Wound Upper Leg Anterior;Right (Active) Debridement Wound 05/18/23 Skin Tear Pre-tibial Left Consent obtained? verbal Consent given by: patient Risks discussed? procedural risks discussed Immediately prior to the procedure a time out was called Performed by: physician Debridement type: surgical Level of debridement: subcutaneous tissue Post-debridement measurements Length (cm): 0.5 Width (cm): 0.5 Depth (cm): 0.2 Percent debrided: 100% Surface Area (cm^2): 0.25 Area debrided (cm^2): 0.25 Volume (cm^3): 0.05 Tissue and other material debrided: subcutaneous tissue Devitalized tissue debrided: biofilm, fibrin and slough Instrument(s) utilized: curette Bleeding: small Hemostasis obtained with: pressure Response to treatment: procedure was tolerated well documented in this encounter [facility] 08-19-2023 Instructions Jolanta Jones RN - 08/19/2023 12:26 PM EST Gavino to all open areas bilaterally, 4x4's, kerlix, coban from toes to knee F/u 1 week documented in this encounter [facility] 08-11-2023 History of Present illness Narrative Images from the original note were not included. Patient Name: Carmen Gilman Admit Date: [id number] MR #: [id number] : 1965 Physicians: Ani Worley CNP (Family); No ref. provider found (Referring) Assessment: Patient with 1. Right lower extremity nonhealing wound 2. Right Knee abscess, with suspicion for prosthetic right knee infection. 3. Chronic hepatitis C,(treated at [facility], and negative hepatitis C RNA.) 4. Bilateral lower extremity edema. 5. Pancytopenia. History of liver cirrhosis. Plan. Continue patient on current therapy Continue patient on IV Zosyn Discontinue for now p.o. Keflex, and Bactrim Status post DC IV vancomycin if negative MRSA. Reviewed right knee cultures, with no growth. I reviewed blood cultures with no growth I reviewed wound culture from the lower right leg with polymicrobial Follow-up ESR, C-reactive protein 5.[address] scan of the right knee, with 2.8 x 2.5 cm ream and seen fluid collection and the suprapatellar area, concerning for abscess, as the right small joint effusion with synovial thickening noted. Podiatry evaluation recommended. Status post skin graft. Continue dressing as per consulting group analyst recommendation. Podiatry is recommending patient to stay more days before discharge. We will continue to follow with you. I reviewed deep right knee wound culture with no growth I appreciate podiatry evaluation status post skin graft. I appreciate oncology/hematology evaluation. Follow-up CBC. I have today also discussed with patient on sending home with IV Zosyn. Patient stated that he is agreeable. On discharge continue patient on IV Zosyn Follow-up in the office on discharge. Addendum. I did discuss with patient on his request for p.o. antibiotics. With less chances of right knee improvement, and possible history of losing leg. Subjective: Patient had no new symptoms today. No fever or chills reported. Tmax of 98.3. Saturating at 97% on room air.Patient stable leg pain. Exam: PACU Vitals 08/11/23 1519 BP: Pulse: Resp: 16 Temp: SpO2: Allergies: Patient has no known allergies. Current Facility-Administered Medications: albuterol inhaler 2 puff, 2 puff, Inhalation, Q6H PRN, Moncho Joaquin MD, 2 puff at 07/31/23 0932 aspirin EC tablet 81 mg, 81 mg, Oral, Daily, Moncho Joaquin MD, 81 mg at 08/11/23 0939 diltiazem (CARDIZEM CD) 24 hr capsule 240 mg, 240 mg, Oral, Daily, Moncho Joaquin MD, 240 mg at 08/11/23 0939 gabapentin (NEURONTIN) capsule 400 mg, 400 mg, Oral, 4x daily, Moncho Joaquin MD, 400 mg at 08/11/23 1400 heparin (porcine) injection 5,000 Units, 5,000 Units, Subcutaneous, Q8H [facility], Moncho Joaquin MD, 5,000 Units at 08/06/23 0613 insulin lispro (AdmeLOG,HumaLOG) injection 0-15 Units, 0-15 Units, Subcutaneous, at bedtime, Moncho Joaquin MD insulin lispro (AdmeLOG,HumaLOG) injection 0-30 Units, 0-30 Units, Subcutaneous, TID AC, Moncho Joaquin MD, 0 Units at 08/08/23 1130 ipratropium-albuteroL (DUO-NEB) 0.5-2.5 mg/3 ml nebulizer solution 3 mL, 3 mL, Inhalation, Q4H PRN, Moncho Joaquin MD lidocaine 1% (PF) (XYLOCAINE-MPF) 10 mg/mL (1 %) injection 1 mL, 1 mL, Injection, Once PRN, Cecilia Gonzales, YURIDIA melatonin Tab 5 mg, 5 mg, Oral, Nightly PRN, Dee Carnes, RODRIGUE, 5 mg at 08/10/23 2233 meloxicam (MOBIC) tablet 15 mg, 15 mg, Oral, Daily, Moncho Joaquin MD, 15 mg at 08/11/23 0939 mometasone-formoterol (DULERA) 200-5 mcg/actuation inhaler 2 puff, 2 puff, Inhalation, BID, Moncho Joaquin MD, 2 puff at 08/10/23 0837 ondansetron (ZOFRAN-ODT) disintegrating tablet 4 mg, 4 mg, Oral, Q6H PRN OR ondansetron (ZOFRAN) injection 4 mg, 4 mg, Intravenous, Q6H PRN, Moncho Joaquin MD oxyCODONE (ROXICODONE) immediate release tablet 10 mg, 10 mg, Oral, Q4H PRN, Moncho Joaquin MD, 10 mg at 08/11/23 1519 pantoprazole (PROTONIX) EC tablet 20 mg, 20 mg, Oral, Daily, Moncho Joaquin MD, 20 mg at 08/11/23 0939 piperacillin-tazobactam (ZOSYN) IVPB 3.375 g (premix), 3.375 g, Intravenous, Q8H, Kinza Garrett MD, Last Rate: 12.5 mL/hr at 08/11/23 0942, 3.375 g at 08/11/23 0942 predniSONE (DELTASONE) tablet 5 mg, 5 mg, Oral, Daily, Moncho Joaquin MD, 5 mg at 08/11/23 0939 Saline lock IV, , , Continuous AND sodium chloride (PF) (NS) flush 5 mL, 5 mL, Intravenous, PRN AND sodium chloride (PF) (NS) flush 5 mL, 5 mL, Intravenous, Q8H CASSIUS, 5 mL at 08/11/23 1400 AND sodium chloride 0.9% (NS), 0-150 mL/hr, Intravenous, PRN, Moncho Joaquin MD Current Outpatient Medications: albuterol (PROVENTIL) 2.5 mg /3 mL (0.083 %) nebulizer solution, Take 3 mL (2.5 mg total) by nebulization every 6 (six) hours as needed for wheezing ., Disp: 75 mL, Rfl: 0 albuterol 90 mcg/actuation inhaler, Inhale 2 (two) puffs every 6 (six) hours as needed for wheezing ., Disp: , Rfl: aspirin 81 MG EC tablet, Take 1 (one) tablet (81 mg total) by mouth every morning ., Disp: , Rfl: diltiazem (TIAZAC) 240 MG 24 hr capsule, Take 1 (one) capsule (240 mg total) by mouth every morning ., Disp: , Rfl: gabapentin (NEURONTIN) 400 MG capsule, Take 1 (one) capsule (400 mg total) by mouth 4 (four) times a day ., Disp: , Rfl: L. acidophilus/L.bulgaricus (LACTOBACILLUS ACIDOPH-L.BULGAR ORAL), Take 1 tablet by mouth every morning For 14 days for atb use ., Disp: , Rfl: meloxicam (MOBIC) 15 MG tablet, Take 1 (one) tablet (15 mg total) by mouth every morning ., Disp: , Rfl: naloxone (NARCAN) 4 mg/actuation [place], Administer 1 spray into one nostril for known or suspected opioid overdose. If patient worsens or does not respond, may repeat in 2-3 minutes. ., Disp: 2 each, Rfl: 1 pantoprazole (PROTONIX) 20 MG tablet, Take 1 (one) tablet (20 mg total) by mouth daily Start: 01/09/20., Disp: 30 tablet, Rfl: 0 predniSONE (DELTASONE) 5 MG tablet, Take 1 (one) tablet (5 mg total) by mouth daily ., Disp: 30 tablet, Rfl: 3 simethicone (GAS-X Extra Strength) 125 MG chewable tablet, Chew and Swallow 1 (one) tablet (125 mg total) every 6 (six) hours as needed (gas/bloating) ., Disp: , Rfl: Combivent Respimat 20-100 mcg/actuation Mist, Inhale 1 (one) puff to 2 (two) puffs every 4 to 6 hours as needed ., Disp: , Rfl: oxyCODONE (ROXICODONE) 10 MG Tab, Take 1 (one) tablet (10 mg total) by mouth every 6 (six) hours as needed For wound for 30 days. GDR of pain medications. Please see new order dosagfe ., Disp: 6 tablet, Rfl: 0 piperacillin-tazobactam (ZOSYN) IV (Outpatient Therapy), Infuse 3.375 g into a venous catheter every 8 (eight) hours .Obtain labs for cbc,esr, crp and bmp weekly for 3 weeks. Follow up with Dr. Garrett in 2 wks. End: 09/01/23, Disp: 48 each, Rfl: 0 Symbicort 160-4.5 mcg/actuation inhaler, Inhale 2 (two) puffs 2 (two) times a day ., Disp: , Rfl: PMH/PSH/SH/FH reviewed, no change : Review of Systems: All systems were reviewed no change: Medications Reviewed. Chart Reviewed. Exam Findings: Neck: Supple, no rigidity ENT: No oral candidiasis Chest: Lungs clear bilaterally, no wheezing, or rales CVS: Normal S1 & S2+, Abdomen: Obese, mild edema, normal symmetry, Soft/non-tender. Benign, BS+ Extremities: No Deformities, bilateral lower extremity edema, and right knee ulceration, and tenderness, right leg with ulceration. Status post skin graft. Right thigh area of skin donor site is stable and bleeding no erythema surrounding site. Skin: Intact & No Rashes, or excoriations Musculoskeletal: No joint swelling, non tender, right knee with drainage, and wound. Area dressed. TRAIN PLANNER: Awake, and Ox3, Wound: Ulceration of the right leg noted, and edema, right knee with ulceration Right leg wound right knee wound Left thigh donor site Tavera Catheter: None IV Access: Yes I reviewed Medications. I reviewed Labs. US Abdomen Complete Final Result 1. Less than optimal. 2. Course a hepatic echotexture consistent with chronic liver disease. 3. Splenomegaly approximately the same as on the prior CT 4. Gallbladder is somewhat ill-defined. A few nonspecific internal echoes. Biliary tree is not dilated Workstation ID: [id number] CT Knee Right With Contrast Final Result 1. There is a 2.8 x 2.5 cm rim-enhancing fluid collection within the suprapatellar subcutaneous soft tissues, concerning for an abscess. No soft tissue air is seen. 2. Small right knee joint effusion with synovial thickening. This likely communicates with the aforementioned suspected abscess. Consider arthrocentesis to evaluate for septic arthritis, as clinically indicated. 3. Edema throughout the right lower extremity subcutaneous tissues, which could represent cellulitis. [facility]/[employer] Collaboration Network Workstation ID: [id number] Laboratory and Additional Data Reviewed: Laboratory 08/11/23 4:51 PM Microbiology 08/11/23 4:51 PM Radiology 08/11/23 4:51 PM Medications 08/11/23 4:51 PM Lab Results Component Value Date WBC 2.46 (L) 08/10/2023 HGB 10.1 (L) 08/10/2023 HCT 32.0 (L) 08/10/2023 MCV 70.3 (L) 08/10/2023 PLT 101 (L) 08/10/2023 Lab Results Component Value Date GLUCOSE 96 08/10/2023 CALCIUM 8.2 (L) 08/10/2023 NA 141 08/10/2023 K 4.1 08/10/2023 CL 107 08/10/2023 BUN 20 08/10/2023 CREATININE 0.61 08/10/2023 Problem List Items Addressed This Visit Other * (Principal) Foot infection - Primary Relevant Medications piperacillin-tazobactam (ZOSYN) IVPB 3.375 g (premix) piperacillin-tazobactam (ZOSYN) IV (Outpatient Therapy) oxyCODONE (ROXICODONE) 10 MG Tab Other Relevant Orders OPAT Home Care Labs and Line Removal Other Visit Diagnoses Wound cellulitis Relevant Orders Ambulatory referral to Wound Clinic I have taken time to review patient's information and having discussions with appropriate care teams, I appreciate seeing your patient, will continue to follow with you, and adjust with more information. Medical Decision Making: Moderate This note is created with the assistance of a speech-recognition program. While intending to generate a document that actually reflects the content of the visit, the document can still have some errors including those of syntax and sound a- like substitutions which may escape proofreading. In such instances, actual meaning can be extrapolated by contextual derivation. Images from the original note were not included. Podiatry Inpatient progress note 08/11/2023 Quyen Franco, [facility] Patient Name: Carmen Gilman. . Date of : 1965, 58 y.o.. Gender: male. Date of Consultation: 08/11/2023. Author: Quyen Franco Assessment: Bilateral lower extremity wounds Right knee abscess/wound Bilateral lower extremity lymphedema Diabetic peripheral neuropathy Plan: Patient was seen and evaluated. Discussed all clinical findings CRP normal, ESR normal. WBC 2.46. Hemoglobin A1c 4.7 Wound culture from right leg no growth (previously grew steno trophomonas maltophilia/xanthomas on leg swab and MSSA on surgical cultures). Right knee culture grew GPB, culture obtained several days after starting IV antibiotics due to patient's refusal previously. Infectious disease following No new imaging of lower legs available, no indication for updated imaging Right knee open wound concerning for underlying abscess. CT right knee with contrast showing a 2.8 x 2.5 cm fluid collection within the suprapatellar subcutaneous soft tissues concerning for an abscess. Small right knee joint effusion likely communicates with the aforementioned suspected abscess. Patient refused knee aspiration per orthopedic surgeon Dr. Dukes Left leg now healed, pad and protect with dry dressing. Maintain right thigh Xeroform intact, do not remove. Right lower extremity dressing change per podiatry at this time Elevate legs as much as able. No weightbearing restrictions to either foot. S/p split-thickness skin graft application to right lower extremity per Dr. Gonzales 08/05. Dressing changed once again per podiatry. OK to discharge to ECF. Discharge instructions placed on AVS. No dressing change needed until seen in wound clinic by Dr. Gonzales. Subjective: Patient seen in his room, lying in bed. No new pedal complaints. Anxious to get discharged to [facility] today. Physical Examination: BP 129/68 Pulse 67 Temp 98.2 F (36.8 C) Resp 16 Ht 6' Wt 108.9 kg (240 lb) SpO2 97% BMI 32.55 kg/m General Appearance: Alert, cooperative, no distress, appears older than stated age. Podiatric Exam Vascular: DP and PT pulses are faintly palpable. Cap refill time brisk to distal digits. Neurological: Gross sensation intact. Protective sensation diminished. Dermatologic: Right lower leg graft post site with intact tammy, split-thickness skin graft appropriately positioned without any dehiscence, seroma or hematoma.. Right thigh graft donor site with intact xeroform. No evidence of infection, odor or purulence. L anterior leg ulcer has healed Musculoskeletal: Is able to wiggle digits. Compartments soft and compressible. No calf pain. Again, thank you for the opportunity to help care for your patient. Quyen Franco Medical Transportation set up by [facility] per hospital request: Date:08/11/23 Time:3pm Destination: [place] [address] Company: [employer] ([phone]) Special needs/equipment:N/A Truck Type: Ambulance Companies called: [employer] Care Management Progress Note Date: 08/11/2023 Time: 2:00 PM Patient Name: Carmen Gilman Date of : 1965 Discharge Plan: Regulatory Documentation: Medicare Regulatory Documentation Status: Certified Patient Paper Copy: Patient received paper copy Discharging Transportation Plan: Discharge Plan Status: pt is able to dc today per provider team - pt has midline in place and iv atb rx is on the chart from id team - faxed to [facility] - transport requested from [facility] - will await time - updates provided to floor nurse - LAWRENCE Ramirez has informed the facility that pt will dc today. Transport coming at 3 pm - [facility] - ambulance form taken to floor nurse - cm signing off with dc Transport request received and is being scheduled, trip information will follow as soon as the time is secured. [facility] [place] Assessment and Plan Carmen Gilman is a 58 y.o. adult patient of Ani Worley CNP with history hypertension, hyperlipidemia, COPD, adrenal insufficiency on prednisone pills, opiate dependence on Suboxone, cirrhotic liver, A-fib, chronic lower extremity wound chronic venous stasis, right lateral leg full-thickness ulcer s/p hematoma evacuation in April 2023, chronic pain syndrome, with complex right suprapatellar joint effusion s/p right total knee replacement requiring aspiration by Dr. Dukest May, chronic right-sided heart failure with pulm hypertension, portal hypertension and esophageal varices, pancytopenia, presented to [facility] due to wounds in the lower extremity with drainage and pain. Patient had recent positive gross from the wound and blood consent of bacteremia admitted for IV antibiotic. Right lower extremity wounds History of bacteremia Chronic venous stasis Chronic right lateral leg full-thickness ulcer Right ankle and above the right knee IV antibiotic with Zosyn initially then switched to Keflex and Bactrim on 08/04 per ID recommendation, obtain oral antibiotic discontinued and restarted on Zosyn on 08/06 Follow-up MRSA negative, discontinue vancomycin Follow-up blood cultures, wound culture, NGTD ESR, CRP WNL Podiatry on board status post wound VAC, split thickness skin graft applicatio done on 08/05 recommendation to keep the patient few more days in the hospital ID on board-plan for p.o. Keflex and Bactrim on discharge Likely discharge on 08/11 on 08/12 complex right suprapatellar joint effusion Possible suprapatellar subcutaneous abscess Possible septic right total knee replacement status post right total knee replacement required aspiration by Dr. Dukes in May culture showed no growth at that time Also presents with draining wound at that area CT scan of the right knee showed 2.8 x 2.5 cm fluid collection in the suprapatellar subcutaneous soft tissue concerning for an abscess Consult orthopedic Continue antibiotic as above Pain control PT OT recommendation up to 5 sessions per week patient is refusing knee aspiration, have a detailed discussion with the patient on 08/01 risks and benefits of knee aspiration. Patient understands all the risk and benefits and refuses to continue with knee aspiration. Pancytopenia Possible iron deficiency anemia History of beta thalassemia On 08/04 hemoglobin 9.4, white blood cells 2.3, platelets 84 On 08/06, hemoglobin 9.6, white blood cells 2.7, platelets 84 vitamin B12, folate within normal limits iron panel, iron level 37, ferritin 33, iron saturation 14, TIBC 273 LDH within normal limits Consult oncology, CBC next a.m. Chronic pain syndrome History of opioid dependency Previously on Suboxone not anymore Taking Percocet as needed Diabetes mellitus ruled out A1c 4.5 History of paroxysmal atrial fibrillation Is off of anticoagulation taking Cardizem CD 240 mg daily heart rate is controlled Patient denies any history of A-fib probably he is not aware of that Chronic adrenal insufficiency Is maintained on oral prednisone 5 mg daily Chronic obstructive pulmonary disease, he is in denial that he has COPD Stable without evidence of exacerbation Peripheral neuropathy Is maintained on gabapentin Discharge Planning Medically Stable for Discharge Date: 08/11 Patient requires continued hospitalization due to: IV antibiotic, podiatry evaluation, Discharge Location possible SNF Quality Measures DVT Prophylaxis: heparin subcutaneous Tavera Catheter: absent Code Status full code Primary Contact Information Subjective Patient is doing well and denies review of systems. He would like to go back to [facility] as soon as possible. BP (!) 121/52 (BP Location: Right arm) Pulse 77 Temp 98.1 F (36.7 C) (Axillary) Resp 18 Ht 6' Wt 108.9 kg (240 lb) SpO2 94% BMI 32.55 kg/m Physical Examination General Appearance: somnolent; chronically ill appearing; in no acute distress HEENT: Head- normocephalic; Eyes- EOMI, sclera anicteric; Throat- mucous membranes moist Cardiovascular: regular rate and rhythm; normal S1, S2; no murmurs, rubs, clicks or gallops; peripheral edema 1+ Respiratory: lungs clear to auscultation; without wheezes, rales or rhonchi; on room air Abdomen: soft, non-tender, non-distended Neurological: oriented x 3; normal speech; no focal findings or movement disorder noted Musculoskeletal: no significant deformity or tenderness to palpation Skin: Erythema in the bilateral lower extremity bluish discoloration of the right lower extremity, clean and dry dressing noted. There is an subcutaneous abscess on the right lower extremity superior to the right knee open and oozing some serous fluid. Psych: normal mood and affect Images from the original note were not included. Patient Name: Carmen Gilman Admit Date: [id number] MR #: [id number] : 1965 Physicians: Ani Worley, RODRIGUE (Family); No ref. provider found (Referring) Assessment: Patient with 1. Right lower extremity nonhealing wound 2. Right Knee abscess, with suspicion for prosthetic right knee infection. 3. Chronic hepatitis C,(treated at [facility], and negative hepatitis C RNA.) 4. Bilateral lower extremity edema. 5. Pancytopenia. History of liver cirrhosis. Plan. Continue patient on current therapy Continue patient on IV Zosyn Discontinue for now p.o. Keflex, and Bactrim Status post DC IV vancomycin if negative MRSA. Reviewed right knee cultures, with no growth. I reviewed blood cultures with no growth I reviewed wound culture from the lower right leg with polymicrobial Follow-up ESR, C-reactive protein 5.[address] scan of the right knee, with 2.8 x 2.5 cm ream and seen fluid collection and the suprapatellar area, concerning for abscess, as the right small joint effusion with synovial thickening noted. Podiatry evaluation recommended. Status post skin graft. Continue dressing as per consulting group analyst recommendation. Podiatry is recommending patient to stay more days before discharge. We will continue to follow with you. I reviewed deep right knee wound culture with no growth I appreciate podiatry evaluation status post skin graft. I appreciate oncology/hematology evaluation. Follow-up CBC. I have today also discussed with patient on sending home with IV Zosyn. Patient stated that he is agreeable. Addendum. I did discuss with patient on his request for p.o. antibiotics. With less chances of right knee improvement, and possible history of losing leg. Subjective: Patient reevaluated today, lying quietly on the bed mattress. Stable pain. No fever or chills. Tmax of 99.6. Patient with saturation of 95 on room air. Patient states that right knee drainage is improving. Exam: PACU Vitals 08/10/23 1126 BP: Pulse: Resp: 18 Temp: SpO2: Allergies: Patient has no known allergies. Current Facility-Administered Medications: albuterol inhaler 2 puff, 2 puff, Inhalation, Q6H PRN, Moncho Joaquin MD, 2 puff at 07/31/23 0932 aspirin EC tablet 81 mg, 81 mg, Oral, Daily, Moncho Joaquin MD, 81 mg at 08/10/23 0838 diltiazem (CARDIZEM CD) 24 hr capsule 240 mg, 240 mg, Oral, Daily, Moncho Joaquin MD, 240 mg at 08/10/23 0838 gabapentin (NEURONTIN) capsule 400 mg, 400 mg, Oral, 4x daily, Moncho Joaquin MD, 400 mg at 08/10/23 1313 heparin (porcine) injection 5,000 Units, 5,000 Units, Subcutaneous, Q8H CASSIUS, Moncho Joaquin MD, 5,000 Units at 08/06/23 0613 insulin lispro (AdmeLOG,HumaLOG) injection 0-15 Units, 0-15 Units, Subcutaneous, at bedtime, Moncho Joaquin MD insulin lispro (AdmeLOG,HumaLOG) injection 0-30 Units, 0-30 Units, Subcutaneous, TID AC, Moncho Joaquin MD, 0 Units at 08/08/23 1130 ipratropium-albuteroL (DUO-NEB) 0.5-2.5 mg/3 ml nebulizer solution 3 mL, 3 mL, Inhalation, Q4H PRN, Moncho Joaquin MD lactated Ringers infusion, 100 mL/hr, Intravenous, Continuous, Felipe Magdaleno MD lidocaine 1% (PF) (XYLOCAINE-MPF) 10 mg/mL (1 %) injection 1 mL, 1 mL, Injection, Once PRN, Cecilia Gonzales DPM melatonin Tab 5 mg, 5 mg, Oral, Nightly PRN, Dee Carnes, RODRIGUE, 5 mg at 08/09/23 2212 meloxicam (MOBIC) tablet 15 mg, 15 mg, Oral, Daily, Moncho Joaquin MD, 15 mg at 08/10/23 0838 mometasone-formoterol (DULERA) 200-5 mcg/actuation inhaler 2 puff, 2 puff, Inhalation, BID, Moncho Joaquin MD, 2 puff at 08/10/23 0837 ondansetron (ZOFRAN-ODT) disintegrating tablet 4 mg, 4 mg, Oral, Q6H PRN OR ondansetron (ZOFRAN) injection 4 mg, 4 mg, Intravenous, Q6H PRN, Moncho Joaquin MD oxyCODONE (ROXICODONE) immediate release tablet 10 mg, 10 mg, Oral, Q4H PRN, Moncho Joaquin MD, 10 mg at 08/10/23 1026 pantoprazole (PROTONIX) EC tablet 20 mg, 20 mg, Oral, Daily, Moncho Joaquin MD, 20 mg at 08/10/23 0838 piperacillin-tazobactam (ZOSYN) IVPB 3.375 g (premix), 3.375 g, Intravenous, Q8H, Kinza Garrett MD, Last Rate: 12.5 mL/hr at 08/10/23 1029, 3.375 g at 08/10/23 1029 predniSONE (DELTASONE) tablet 5 mg, 5 mg, Oral, Daily, Moncho Joaquin MD, 5 mg at 08/10/23 0838 Saline lock IV, , , Continuous AND sodium chloride (PF) (NS) flush 5 mL, 5 mL, Intravenous, PRN AND sodium chloride (PF) (NS) flush 5 mL, 5 mL, Intravenous, Q8H CASSIUS, 5 mL at 08/10/23 1313 AND sodium chloride 0.9% (NS), 0-150 mL/hr, Intravenous, PRN, Moncho Joaquin MD PMH/PSH/SH/ reviewed, no change : Review of Systems: All systems were reviewed no change: Medications Reviewed. Chart Reviewed. Exam Findings: Neck: Supple, no rigidity ENT: No oral candidiasis Chest: Lungs clear bilaterally, no wheezing, or rales CVS: Normal S1 & S2+, Abdomen: Obese, mild edema, normal symmetry, Soft/non-tender. Benign, BS+ Extremities: No Deformities, bilateral lower extremity edema, and right knee ulceration, and tenderness, right leg with ulceration. Status post skin graft. Right thigh area of skin donor site is stable and bleeding no erythema surrounding site. Skin: Intact & No Rashes, or excoriations Musculoskeletal: No joint swelling, non tender, right knee with drainage, and wound. Area dressed. TRAIN PLANNER: Awake, and Ox3, Wound: Ulceration of the right leg noted, and edema, right knee with ulceration Right leg wound right knee wound Left thigh donor site Tavera Catheter: None IV Access: Yes I reviewed Medications. I reviewed Labs. US Abdomen Complete Final Result 1. Less than optimal. 2. Course a hepatic echotexture consistent with chronic liver disease. 3. Splenomegaly approximately the same as on the prior CT 4. Gallbladder is somewhat ill-defined. A few nonspecific internal echoes. Biliary tree is not dilated Workstation ID: [id number] CT Knee Right With Contrast Final Result 1. There is a 2.8 x 2.5 cm rim-enhancing fluid collection within the suprapatellar subcutaneous soft tissues, concerning for an abscess. No soft tissue air is seen. 2. Small right knee joint effusion with synovial thickening. This likely communicates with the aforementioned suspected abscess. Consider arthrocentesis to evaluate for septic arthritis, as clinically indicated. 3. Edema throughout the right lower extremity subcutaneous tissues, which could represent cellulitis. [facility] Workstation ID: [id number] Laboratory and Additional Data Reviewed: Laboratory 08/10/23 2:17 PM Microbiology 08/10/23 2:17 PM Radiology 08/10/23 2:17 PM Medications 08/10/23 2:17 PM Lab Results Component Value Date WBC 2.46 (L) 08/10/2023 HGB 10.1 (L) 08/10/2023 HCT 32.0 (L) 08/10/2023 MCV 70.3 (L) 08/10/2023 PLT 101 (L) 08/10/2023 Lab Results Component Value Date GLUCOSE 96 08/10/2023 CALCIUM 8.2 (L) 08/10/2023 NA 141 08/10/2023 K 4.1 08/10/2023 CL 107 08/10/2023 BUN 20 08/10/2023 CREATININE 0.61 08/10/2023 Problem List Items Addressed This Visit Other * (Principal) Foot infection Relevant Medications piperacillin-tazobactam (ZOSYN) IVPB 3.375 g (premix) Other Visit Diagnoses Wound cellulitis - Primary I have taken time to review patient's information and having discussions with appropriate care teams, I appreciate seeing your patient, will continue to follow with you, and adjust with more information. Medical Decision Making: Moderate This note is created with the assistance of a speech-recognition program. While intending to generate a document that actually reflects the content of the visit, the document can still have some errors including those of syntax and sound a- like substitutions which may escape proofreading. In such instances, actual meaning can be extrapolated by contextual derivation. Care Management Progress Note Date: 08/10/2023 Time: 1:11 PM Patient Name: Carmen Gilman Date of : 1965 Discharge Plan: Regulatory Documentation: Medicare Regulatory Documentation Status: Certified Patient Paper Copy: Patient received paper copy Discharging Transportation Plan: Discharge Plan Status: Per cecilia Cole obtained and treatment team updated to see if pt ready for discharge today. Pt is agreeable to SNF. Pt no longer with wound vac but will need IV antibx. CM to follow. Addendum [address] Gonzales, she does not want pt discharged till late tomorrow or Tuesday. Kelsey updated. CM to follow. Nutrition Care Follow Up Monitoring and Evaluation: PO intake was 75 or greater at most meals Nutrition Diagnosis: Increased nutrient needs related to need for wound healing as evidenced by pt has wounds with wound vac in place. Will modify New Nutrition Diagnosis: Increased nutrient needs related to need for wound healing as evidenced by pt has wounds. Nutrition Intervention/Prescription: Continue Diet + Oral Nutrition Supplement Diet: regular Oral nutrition supplement: Luke BID, Boost Glucose Control once daily Nutrition Goals: PO intake > 75% most meals x next 6 days Nutrition Education: RDN encouraged po Assessment: Pertinent clinical information: S/p split-thickness skin graft application to right lower extremity per Dr. Gonzales 08/05. Current weight: 108.9 kg (240 lb) 07/29. Body mass index is 32.55 kg/m . Weight: No new wt since admitted Edema (documented by nursing): +1 B/L LE Current diet order: regular Current oral nutrition supplement: Luke BID, Boost Glucose Control once daily Recent intake: 75-100% when documented Current intake Likely meets estimated needs. Patient/family comments: Pt reports is eating well, drinks the Boost Glucose Control and drinks at least 1 Luke/day. Boost Glucose Control from breakfast untouched, RDN placed container in a bag of ice in the sink as pt requested to get it cold and then he will drink. Difficulty Chewing/Swallowing: pt denies Skin Integrity: wound- R knee and R calf, R leg surgical wound GI Function: LBM 08/09 Physical Appearance: no change from initial assessment Labs: Recent Labs 08/10/23 0544 NA 141 K 4.1 BICARB 30 CL 107 GLUCOSE 96 BUN 20 CREATININE 0.61 MG 2.2 PHOS 4.0 Scheduled Meds: aspirin 81 mg Oral Daily diltiazem 240 mg Oral Daily gabapentin 400 mg Oral 4x daily heparin (porcine) 5,000 Units Subcutaneous Q8H CASSIUS lispro insulin 0-15 Units Subcutaneous at bedtime insulin lispro 0-30 Units Subcutaneous TID AC meloxicam 15 mg Oral Daily mometasone-formoterol 2 puff Inhalation BID pantoprazole 20 mg Oral Daily piperacillin-tazobactam (ZOSYN) extended infusion 3.375 g Intravenous Q8H predniSONE 5 mg Oral Daily sodium chloride (PF) 5 mL Intravenous Q8H CASSIUS Continuous Infusions: lactated Ringers sodium chloride 0.9 % Estimated Energy Needs Total Energy Estimated Needs: 2300-2400kcals Method for Estimating Needs: (25-26kcals/kg). adjbw Total Protein Estimated Needs: 109gms Method for Estimating Needs: (1.2gms/kg). adjbw Will continue to follow. Jalyn Mercer RDN, LD Dietitian's Office [phone] Images from the original note were not included. Podiatry Inpatient progress note 08/10/2023 Quyen Franco, [facility] Patient Name: Carmen Gilman. . Date of : 1965, 58 y.o.. Gender: male. Date of Consultation: 08/10/2023. Author: Quyen Franco Assessment: Bilateral lower extremity wounds Right knee abscess/wound Bilateral lower extremity lymphedema Diabetic peripheral neuropathy Plan: Patient was seen and evaluated. Discussed all clinical findings CRP normal, ESR normal. WBC 2.46. Hemoglobin A1c 4.7 Wound culture from right leg no growth (previously grew steno trophomonas maltophilia/xanthomas on leg swab and MSSA on surgical cultures). Right knee culture grew GPB, culture obtained several days after starting IV antibiotics due to patient's refusal previously. Infectious disease following No new imaging of lower legs available, no indication for updated imaging Right knee open wound concerning for underlying abscess. CT right knee with contrast showing a 2.8 x 2.5 cm fluid collection within the suprapatellar subcutaneous soft tissues concerning for an abscess. Small right knee joint effusion likely communicates with the aforementioned suspected abscess. Patient refused knee aspiration per orthopedic surgeon Dr. Dukes Left leg now healed, pad and protect with dry dressing. Maintain right thigh Xeroform intact, do not remove. Right lower extremity dressing change per podiatry at this time Elevate legs as much as able. No weightbearing restrictions to either foot. S/p split-thickness skin graft application to right lower extremity per Dr. Gonzales 08/05. Dr. Gonzales recommending patient stay until Tuesday before discharging to [facility]. Subjective: Patient seen in his room, lying in bed. No new pedal complaints, he is in decent spirits. States he is getting antsy in the hospital but understands if he needs to stay a few more days. Physical Examination: BP 131/73 Pulse 71 Temp 98.1 F (36.7 C) (Axillary) Resp 18 Ht 6' Wt 108.9 kg (240 lb) SpO2 95% BMI 32.55 kg/m General Appearance: Alert, cooperative, no distress, appears older than stated age. Podiatric Exam Vascular: DP and PT pulses are faintly palpable. Cap refill time brisk to distal digits. Neurological: Gross sensation intact. Protective sensation diminished. Dermatologic: Right lower leg graft post site with intact tammy, split-thickness skin graft appropriately positioned without any dehiscence, seroma or hematoma.. Right thigh graft donor site with intact xeroform. No evidence of infection, odor or purulence. L anterior leg ulcer has healed Musculoskeletal: Is able to wiggle digits. Compartments soft and compressible. No calf pain. Again, thank you for the opportunity to help care for your patient. Quyen Franco Occupational Therapy OCCUPATIONAL THERAPY TREATMENT NOTE Skilled Therapy Needs After Discharge Anticipate Resolution of Current Assessment Limitations Including: Pain Are Skilled Therapy Services Needed After Discharge: Yes Intensity of Skilled Therapy: Up to 5 days per week Anticipated Duration of Skilled Therapy: Duration 10 - 30 days DME Recommendation: To be determined at next level of care Rehab Potential: Fair Outcomes Measures Prior Function Variance: Patient refuses test AM-PAC Daily Activity Raw Score: 16 AM-PAC Daily Activity % Impaired: 53.32% Activity Tolerance Activity Tolerance: Tolerates 10 - 20 min activity with multiple rests Therapy Precautions Orthotic Devices: No Weight Bearing Status: WFL General Rehab Precautions: Fall risk Cognition Overall Cognitive Status: Within Functional Limits Arousal/Alertness: Appropriate responses to stimuli Orientation Level: Oriented X4 Safety Judgment: Decreased awareness of need for safety Problem Solving: Assistance required to generate solutions Attention: Attends to quiet environment Hearing Status: WFL Social Interaction: Apprehensive Comments: Pt not wanting to move OOB due to skin graft still breeding and painful, agreeing to in bed ADL skills. Skilled Intervention Provided: verbal cues For: increased self-awareness Resulting In: improved initiation ADL Upper Body Bathing: Set-up, Stand by assist (pt able to wash p set up in bed guarding use of L UE due to new mid line placement encouraging pt he could still use that extermity becoming aggitiated stating he wasn't taking any chances, offering assist to be more thorough on R UE side but declined.) Upper Body Bathing - Skilled Intervention Provided: patient education Upper Body Bathing - For: safe bathing techniques Upper Body Bathing - Resulting In: improved initiation Bed Mobility Rolling: Modified independent, Head of bed flat Bridge Construction Inspector: bedrails Skilled Intervention Provided: monitoring patient response with activity For: efficient movement Resulting In: increased initiation in mobility task(s) Home Living Obtained Home Living and PLOF info from: Patient Unable to obtain Home Living and PLOF info on initial eval: Patient is a questionable historian Type of Home: Homeless Mobility Equipment: Wheeled walker, Wheelchair - manual Additional Objective Details - Home Living: Pt becoming irritable with attempts at obtaining home set up information Prior Level of Function Level of Boutte - Transfers/Ambulation/Mobility: Independent with functional transfers, Independent with household ambulation Level of Boutte - ADLs: Independent For complete objective data, detailed plan of care and patient education refer to: OT Evaluation flowsheet, OT Evaluation and Treatment flowsheet, OT Treatment flowsheet, patient Plan of Care, Plan of Care progress note, and Patient Education. This note stands as the current Discharge Summary upon patient discharge from the hospital or completion of Occupational Therapy Plan of Care. Images from the original note were not included. Patient Name: Carmen Gilman Admit Date: [id number] MR #: [id number] : 1965 Physicians: Ani Worley, ENVIRONMENTAL EMERGENCIES PLANNER (Family); No ref. provider found (Referring) Assessment: Patient with 1. Right lower extremity nonhealing wound 2. Right Knee abscess, with suspicion for prosthetic right knee infection. 3. Chronic hepatitis C,(treated at [facility], and negative hepatitis C RNA.) 4. Bilateral lower extremity edema. 5. Pancytopenia. Plan. Continue patient on current therapy Continue patient on IV Zosyn Discontinue for now p.o. Keflex, and Bactrim Status post DC IV vancomycin if negative MRSA. Reviewed right knee cultures, with no growth. I reviewed blood cultures with no growth I reviewed wound culture from the lower right leg with polymicrobial Follow-up ESR, C-reactive protein 5.[address] scan of the right knee, with 2.8 x 2.5 cm ream and seen fluid collection and the suprapatellar area, concerning for abscess, as the right small joint effusion with synovial thickening noted. Podiatry evaluation recommended. Status post skin graft. Continue dressing as per consulting group analyst recommendation. We will continue to follow with you. I reviewed deep right knee wound culture with no growth I appreciate podiatry evaluation status post skin graft. I appreciate oncology/hematology evaluation. Follow-up CBC. Addendum. I did discuss with patient on his request for p.o. antibiotics. With less chances of right knee improvement, and possible history of losing leg. Subjective: Today patient had no new symptoms, no fever or chills reported. Lying quietly on the bed mattress. Tmax of 99.6. Saturating at 94%.Area of skin donor site, with not much bleeding. Dressed site. The knee drainage is improving also. Exam: PACU Vitals 08/09/23 1405 BP: Pulse: Resp: 16 Temp: SpO2: Allergies: Patient has no known allergies. Current Facility-Administered Medications: albuterol inhaler 2 puff, 2 puff, Inhalation, Q6H PRN, Moncho Joaquin MD, 2 puff at 07/31/23 0932 aspirin EC tablet 81 mg, 81 mg, Oral, Daily, Moncho Joaquin MD, 81 mg at 08/09/23 0822 diltiazem (CARDIZEM CD) 24 hr capsule 240 mg, 240 mg, Oral, Daily, Moncho Joaquin MD, 240 mg at 08/09/23 0822 gabapentin (NEURONTIN) capsule 400 mg, 400 mg, Oral, 4x daily, Moncho Joaquin MD, 400 mg at 08/09/23 1405 heparin (porcine) injection 5,000 Units, 5,000 Units, Subcutaneous, Q8H CASSIUS, Moncho Joaquin MD, 5,000 Units at 08/06/23 0613 insulin lispro (AdmeLOG,HumaLOG) injection 0-15 Units, 0-15 Units, Subcutaneous, at bedtime, Moncho Joaquin MD insulin lispro (AdmeLOG,HumaLOG) injection 0-30 Units, 0-30 Units, Subcutaneous, TID AC, Moncho Joaquin MD, 0 Units at 08/08/23 1130 ipratropium-albuteroL (DUO-NEB) 0.5-2.5 mg/3 ml nebulizer solution 3 mL, 3 mL, Inhalation, Q4H PRN, Moncho Joaquin MD lactated Ringers infusion, 100 mL/hr, Intravenous, Continuous, Felipe Magdaleno MD lidocaine 1% (PF) (XYLOCAINE-MPF) 10 mg/mL (1 %) injection 1 mL, 1 mL, Injection, Once PRN, Cecilia Gonzales, YURIDIA melatonin Tab 5 mg, 5 mg, Oral, Nightly PRN, Dee Carnes, RODRIGUE, 5 mg at 08/08/232021 meloxicam (MOBIC) tablet 15 mg, 15 mg, Oral, Daily, Moncho Joaquin MD, 15 mg at 08/09/23 0822 mometasone-formoterol (DULERA) 200-5 mcg/actuation inhaler 2 puff, 2 puff, Inhalation, BID, Moncho Joaquin MD, 2 puff at 08/09/23 0821 ondansetron (ZOFRAN-ODT) disintegrating tablet 4 mg, 4 mg, Oral, Q6H PRN OR ondansetron (ZOFRAN) injection 4 mg, 4 mg, Intravenous, Q6H PRN, Moncho Joaquin MD oxyCODONE (ROXICODONE) immediate release tablet 10 mg, 10 mg, Oral, Q4H PRN, Moncho Joaquin MD, 10 mg at 08/09/23 1405 pantoprazole (PROTONIX) EC tablet 20 mg, 20 mg, Oral, Daily, Moncho Joaquin MD, 20 mg at 08/09/23 0822 piperacillin-tazobactam (ZOSYN) IVPB 3.375 g (premix), 3.375 g, Intravenous, Q8H, Kinza Garrett MD, Last Rate: 12.5 mL/hr at 08/09/23 1015, 3.375 g at 08/09/23 1015 predniSONE (DELTASONE) tablet 5 mg, 5 mg, Oral, Daily, Moncho Joaquin MD, 5 mg at 08/09/23 0822 Saline lock IV, , , Continuous AND sodium chloride (PF) (NS) flush 5 mL, 5 mL, Intravenous, PRN AND sodium chloride (PF) (NS) flush 5 mL, 5 mL, Intravenous, Q8H CASSIUS, 5 mL at 08/09/23 1400 AND sodium chloride 0.9% (NS), 0-150 mL/hr, Intravenous, PRN, Moncho Joaquin MD PMH/PSH/SH/ reviewed, no change : Review of Systems: All systems were reviewed no change: Medications Reviewed. Chart Reviewed. Exam Findings: HEENT: Atraumatic/Pupils equal & reactive Neck: Supple, no rigidity ENT: No oral candidiasis Chest: Lungs clear bilaterally, no wheezing, or rales CVS: Normal S1 & S2+, Abdomen: Obese, mild edema, normal symmetry, Soft/non-tender. Benign, BS+ Extremities: No Deformities, bilateral lower extremity edema, and right knee ulceration, and tenderness, right leg with ulceration. Status post skin graft. Right thigh area of skin donor site is stable and bleeding no erythema surrounding site. Skin: Intact & No Rashes, or excoriations Musculoskeletal: No joint swelling, non tender, right knee with drainage, and wound. Area dressed. TRAIN PLANNER: Awake, and Ox3, Wound: Ulceration of the right leg noted, and edema, right knee with ulceration Right leg wound right knee wound Left thigh donor site Tavera Catheter: None IV Access: Yes I reviewed Medications. I reviewed Labs. US Abdomen Complete Final Result 1. Less than optimal. 2. Course a hepatic echotexture consistent with chronic liver disease. 3. Splenomegaly approximately the same as on the prior CT 4. Gallbladder is somewhat ill-defined. A few nonspecific internal echoes. Biliary tree is not dilated Workstation ID: [id number] CT Knee Right With Contrast Final Result 1. There is a 2.8 x 2.5 cm rim-enhancing fluid collection within the suprapatellar subcutaneous soft tissues, concerning for an abscess. No soft tissue air is seen. 2. Small right knee joint effusion with synovial thickening. This likely communicates with the aforementioned suspected abscess. Consider arthrocentesis to evaluate for septic arthritis, as clinically indicated. 3. Edema throughout the right lower extremity subcutaneous tissues, which could represent cellulitis. [facility]/[employer] Workstation ID: [id number] Laboratory and Additional Data Reviewed: Laboratory 08/09/23 2:29 PM Microbiology 08/09/23 2:29 PM Radiology 08/09/23 2:29 PM Medications 08/09/23 2:29 PM Lab Results Component Value Date WBC 2.72 (L) 08/06/2023 HGB 9.6 (L) 08/06/2023 HCT 30.9 (L) 08/06/2023 MCV 70.5 (L) 08/06/2023 PLT 84 (L) 08/06/2023 Lab Results Component Value Date GLUCOSE 127 (H) 08/06/2023 CALCIUM 8.0 (L) 08/06/2023 NA 139 08/06/2023 K 4.6 08/06/2023 CL 107 08/06/2023 BUN 17 08/06/2023 CREATININE 0.60 08/06/2023 Problem List Items Addressed This Visit Other * (Principal) Foot infection Relevant Medications piperacillin-tazobactam (ZOSYN) IVPB 3.375 g (premix) Other Visit Diagnoses Wound cellulitis - Primary I have taken time to review patient's information and having discussions with appropriate care teams, I appreciate seeing your patient, will continue to follow with you, and adjust with more information. Medical Decision Making: Moderate This note is created with the assistance of a speech-recognition program. While intending to generate a document that actually reflects the content of the visit, the document can still have some errors including those of syntax and sound a- like substitutions which may escape proofreading. In such instances, actual meaning can be extrapolated by contextual derivation. Care Management Progress Note Date: 08/09/2023 Time: 1:54 PM Patient Name: Carmen Gilman Date of : 1965 Discharge Plan: Regulatory Documentation: Medicare IM Regulatory Documentation Status: Certified Patient Paper Copy: Patient received paper copy Discharging Transportation Plan: Discharge Plan Status: Per Dr. Sandra in [facility], pt will likely be ready for discharge in a day or two. Kelsey working on precert to try and skill pt on return. CM to follow. Images from the original note were not included. Podiatry Inpatient progress note 08/09/2023 Quyen Franco, ENVIRONMENTAL EMERGENCIES PLANNER [facility] Patient Name: Carmen Gilman. . Date of : 1965, 58 y.o.. Gender: male. Date of Consultation: 08/09/2023. Author: Quyen Franco Assessment: Bilateral lower extremity wounds Right knee abscess/wound Bilateral lower extremity lymphedema Diabetic peripheral neuropathy Plan: Patient was seen and evaluated. Discussed all clinical findings CRP normal, ESR normal. WBC 2.30. Hemoglobin A1c 4.7 Wound culture from right leg no growth (previously grew steno trophomonas maltophilia/xanthomas on leg swab and MSSA on surgical cultures). Right knee culture grew GPB, culture obtained several days after starting IV antibiotics due to patient's refusal previously. Infectious disease following No new imaging of lower legs available, no indication for updated imaging Right knee open wound concerning for underlying abscess. CT right knee with contrast showing a 2.8 x 2.5 cm fluid collection within the suprapatellar subcutaneous soft tissues concerning for an abscess. Small right knee joint effusion likely communicates with the aforementioned suspected abscess. Patient refused knee aspiration per orthopedic surgeon Dr. Dukes Left leg now healed, pad and protect with dry dressing Elevate legs as much as able. No weightbearing restrictions to either foot. S/p split-thickness skin graft application to right lower extremity per Dr. Gonzales 08/05. Plan to change right lower leg dressing tomorrow. Maintain xeroform to right thigh intact. If right leg is looking good, patient may transition to ECF. Subjective: Patient seen in his room, lying in bed. No new pedal complaints, appears more alert than normally. R thigh cover dressing fell off since yesterday, xeroform in place with fan clipped to bed rail. Physical Examination: BP (!) 151/74 (BP Location: Right arm, Patient Position: Lying) Pulse 73 Temp 99.6 F (37.6 C) (Axillary) Resp 16 Ht 6' Wt 108.9 kg (240 lb) SpO2 94% BMI 32.55 kg/m General Appearance: Alert, cooperative, no distress, appears older than stated age. Podiatric Exam Vascular: DP and PT pulses are faintly palpable. Cap refill time brisk to distal digits. Neurological: Gross sensation intact. Protective sensation diminished. Dermatologic: Right lower leg dressing clean dry and intact, was not removed 08/09. Right thigh graft donor site no longer oozing, xeroform intact. No evidence of infection, odor or purulence. L anterior leg ulcer has healed Musculoskeletal: Is able to wiggle digits. Compartments soft and compressible. No calf pain. Again, thank you for the opportunity to help care for your patient. Quyen Franco [facility] [place] Assessment and Plan Carmen Gilman is a 58 y.o. adult patient of Ani Worley CNP with history hypertension, hyperlipidemia, COPD, adrenal insufficiency on prednisone pills, opiate dependence on Suboxone, cirrhotic liver, A-fib, chronic lower extremity wound chronic venous stasis, right lateral leg full-thickness ulcer s/p hematoma evacuation in April 2023, chronic pain syndrome, with complex right suprapatellar joint effusion s/p right total knee replacement requiring aspiration by Dr. Amin May, chronic right-sided heart failure with pulm hypertension, portal hypertension and esophageal varices, pancytopenia, presented to [facility] due to wounds in the lower extremity with drainage and pain. Patient had recent positive gross from the wound and blood consent of bacteremia admitted for IV antibiotic. Right lower extremity wounds History of bacteremia Chronic venous stasis Chronic right lateral leg full-thickness ulcer Right ankle and above the right knee IV antibiotic with Zosyn initially then switched to Keflex and Bactrim on 08/04 per ID recommendation, obtain oral antibiotic discontinued and restarted on Zosyn on 08/06 Follow-up MRSA negative, discontinue vancomycin Follow-up blood cultures, wound culture, NGTD ESR, CRP WNL Podiatry on board status post wound VAC, split thickness skin graft applicatio done on 08/05 recommendation to keep the patient few more days in the hospital ID on board complex right suprapatellar joint effusion Possible suprapatellar subcutaneous abscess Possible septic right total knee replacement status post right total knee replacement required aspiration by Dr. Dukes in May culture showed no growth at that time Also presents with draining wound at that area CT scan of the right knee showed 2.8 x 2.5 cm fluid collection in the suprapatellar subcutaneous soft tissue concerning for an abscess Consult orthopedic Continue antibiotic as above Pain control PT OT recommendation up to 5 sessions per week patient is refusing knee aspiration, have a detailed discussion with the patient on 08/01 risks and benefits of knee aspiration. Patient understands all the risk and benefits and refuses to continue with knee aspiration. Pancytopenia Possible iron deficiency anemia History of beta thalassemia On 08/04 hemoglobin 9.4, white blood cells 2.3, platelets 84 On 08/06, hemoglobin 9.6, white blood cells 2.7, platelets 84 vitamin B12, folate within normal limits iron panel, iron level 37, ferritin 33, iron saturation 14, TIBC 273 LDH within normal limits Consult oncology, CBC next a.m. Chronic pain syndrome History of opioid dependency Previously on Suboxone not anymore Taking Percocet as needed Diabetes mellitus ruled out A1c 4.5 History of paroxysmal atrial fibrillation Is off of anticoagulation taking Cardizem CD 240 mg daily heart rate is controlled Patient denies any history of A-fib probably he is not aware of that Chronic adrenal insufficiency Is maintained on oral prednisone 5 mg daily Chronic obstructive pulmonary disease, he is in denial that he has COPD Stable without evidence of exacerbation Peripheral neuropathy Is maintained on gabapentin Discharge Planning Medically Stable for Discharge Date: 08/11 Patient requires continued hospitalization due to: IV antibiotic, podiatry evaluation, Discharge Location possible SNF Quality Measures DVT Prophylaxis: heparin subcutaneous Tavera Catheter: absent Code Status full code Primary Contact Information Subjective Reports mild to moderate foot pain today, responds well to narcotics, no shortness of breath, no nausea or constipation No acute events overnight Order CBC and BMP Vital signs stable Continue current medical management Discharge home when it is okay with podiatry BP (!) 151/74 (BP Location: Right arm, Patient Position: Lying) Pulse 73 Temp 99.6 F (37.6 C) (Axillary) Resp 16 Ht 6' Wt 108.9 kg (240 lb) SpO2 94% BMI 32.55 kg/m Physical Examination General Appearance: somnolent; chronically ill appearing; in no acute distress HEENT: Head- normocephalic; Eyes- EOMI, sclera anicteric; Throat- mucous membranes moist Cardiovascular: regular rate and rhythm; normal S1, S2; no murmurs, rubs, clicks or gallops; peripheral edema 1+ Respiratory: lungs clear to auscultation; without wheezes, rales or rhonchi; on room air Abdomen: soft, non-tender, non-distended Neurological: oriented x 3; normal speech; no focal findings or movement disorder noted Musculoskeletal: no significant deformity or tenderness to palpation Skin: Erythema in the bilateral lower extremity bluish discoloration of the right lower extremity, clean and dry dressing noted. There is an subcutaneous abscess on the right lower extremity superior to the right knee open and oozing some serous fluid. Psych: normal mood and affect Images from the original note were not included. Patient Name: Carmen Gilman Admit Date: [id number] MR #: [id number] : 1965 Physicians: Ani Worley, RODRIGUE (Family); No ref. provider found (Referring) Assessment: Patient with 1. Right lower extremity nonhealing wound 2. Right Knee abscess, with suspicion for prosthetic right knee infection. 3. Chronic hepatitis C,(treated at [facility], and negative hepatitis C RNA.) 4. Bilateral lower extremity edema. 5. Pancytopenia. Plan. Continue patient on current therapy Continue patient on IV Zosyn Discontinue for now p.o. Keflex, and Bactrim Status post DC IV vancomycin if negative MRSA. Reviewed right knee cultures, with no growth. I reviewed blood cultures with no growth I reviewed wound culture from the lower right leg with polymicrobial Follow-up ESR, C-reactive protein 5.[address] scan of the right knee, with 2.8 x 2.5 cm ream and seen fluid collection and the suprapatellar area, concerning for abscess, as the right small joint effusion with synovial thickening noted. Podiatry evaluation recommended. Status post skin graft. Continue dressing as per consulting group analyst recommendation. We will continue to follow with you. I reviewed deep right knee wound culture with no growth I appreciate podiatry evaluation status post skin graft. I appreciate oncology/hematology evaluation. Follow-up CBC. Addendum. I did discuss with patient on his request for p.o. antibiotics. With less chances of right knee improvement, and possible history of losing leg. Subjective: Patient had no new symptoms today. No fever or chills reported. Tmax of 98.9. Saturating 96% on room air. Patient complaining of pain at the area of skin donor site. Exam: PACU Vitals 08/08/23 1111 BP: Pulse: Resp: 18 Temp: SpO2: Allergies: Patient has no known allergies. Current Facility-Administered Medications: albuterol inhaler 2 puff, 2 puff, Inhalation, Q6H PRN, Moncho Joaquin MD, 2 puff at 07/31/23 0932 aspirin EC tablet 81 mg, 81 mg, Oral, Daily, Moncho Joaquin MD, 81 mg at 08/08/23 1013 diltiazem (CARDIZEM CD) 24 hr capsule 240 mg, 240 mg, Oral, Daily, Moncho Joaquin MD, 240 mg at 08/08/23 1012 gabapentin (NEURONTIN) capsule 400 mg, 400 mg, Oral, 4x daily, Moncho Joaquin MD, 400 mg at 08/08/23 1013 heparin (porcine) injection 5,000 Units, 5,000 Units, Subcutaneous, Q8H [facility], Moncho Joaquin MD, 5,000 Units at 08/06/23 0613 insulin lispro (AdmeLOG,HumaLOG) injection 0-15 Units, 0-15 Units, Subcutaneous, at bedtime, Moncho Joaquin MD insulin lispro (AdmeLOG,HumaLOG) injection 0-30 Units, 0-30 Units, Subcutaneous, TID AC, Moncho Joaquin MD, 0 Units at 08/08/23 1130 ipratropium-albuteroL (DUO-NEB) 0.5-2.5 mg/3 ml nebulizer solution 3 mL, 3 mL, Inhalation, Q4H PRN, Moncho Joaquin MD lactated Ringers infusion, 100 mL/hr, Intravenous, Continuous, Felipe Magdaleno MD lidocaine 1% (PF) (XYLOCAINE-MPF) 10 mg/mL (1 %) injection 1 mL, 1 mL, Injection, Once PRN, Cecilia Gonzales, YURIDIA melatonin Tab 5 mg, 5 mg, Oral, Nightly PRN, Dee Carnes, ENVIRONMENTAL [employer]CIES [employer]NER, 5 mg at 08/07/23 2111 meloxicam (MOBIC) tablet 15 mg, 15 mg, Oral, Daily, Moncho Joaquin MD, 15 mg at 08/08/23 1012 mometasone-formoterol (DULERA) 200-5 mcg/actuation inhaler 2 puff, 2 puff, Inhalation, BID, Moncho Joaquin MD, 2 puff at 08/08/23 1013 ondansetron (ZOFRAN-ODT) disintegrating tablet 4 mg, 4 mg, Oral, Q6H PRN OR ondansetron (ZOFRAN) injection 4 mg, 4 mg, Intravenous, Q6H PRN, Moncho Joaquin MD oxyCODONE (ROXICODONE) immediate release tablet 10 mg, 10 mg, Oral, Q4H PRN, Moncho Joaquin MD, 10 mg at 08/08/23 1111 pantoprazole (PROTONIX) EC tablet 20 mg, 20 mg, Oral, Daily, Moncho Joaquin MD, 20 mg at 08/08/23 1012 piperacillin-tazobactam (ZOSYN) IVPB 3.375 g (premix), 3.375 g, Intravenous, Q8H, Kinza Garrett MD, Last Rate: 12.5 mL/hr at 08/08/23 1018, 3.375 g at 08/08/23 1018 predniSONE (DELTASONE) tablet 5 mg, 5 mg, Oral, Daily, Moncho Joaquin MD, 5 mg at 08/08/23 1012 Saline lock IV, , , Continuous AND sodium chloride (PF) (NS) flush 5 mL, 5 mL, Intravenous, PRN AND sodium chloride (PF) (NS) flush 5 mL, 5 mL, Intravenous, Q8H CASSIUS, 5 mL at 08/07/23 0600 AND sodium chloride 0.9% (NS), 0-150 mL/hr, Intravenous, PRN, Moncho Joaquin MD PMH/PSH/SH/ reviewed, no change : Review of Systems: All systems were reviewed no change: Medications Reviewed. Chart Reviewed. Exam Findings: HEENT: Atraumatic/Pupils equal & reactive Neck: Supple, no rigidity ENT: No oral candidiasis Chest: Lungs clear bilaterally, no wheezing, or rales CVS: Normal S1 & S2+, Abdomen: Obese, mild edema, normal symmetry, Soft/non-tender. Benign, BS+ Extremities: No Deformities, bilateral lower extremity edema, and right knee ulceration, and tenderness, right leg with ulceration. Status post skin graft. Right thigh area of skin donor site is stable and bleeding no erythema surrounding site. Skin: Intact & No Rashes, or excoriations Musculoskeletal: No joint swelling, non tender, right knee with drainage, and wound. Area dressed. TRAIN PLANNER: Awake, and Ox3, depressed leuk Wound: Ulceration of the right leg noted, and edema, right knee with ulceration Right leg wound right knee wound Left thigh donor site Tavera Catheter: None IV Access: Yes I reviewed Medications. I reviewed Labs. US Abdomen Complete Final Result 1. Less than optimal. 2. Course a hepatic echotexture consistent with chronic liver disease. 3. Splenomegaly approximately the same as on the prior CT 4. Gallbladder is somewhat ill-defined. A few nonspecific internal echoes. Biliary tree is not dilated Workstation ID: [id number] CT Knee Right With Contrast Final Result 1. There is a 2.8 x 2.5 cm rim-enhancing fluid collection within the suprapatellar subcutaneous soft tissues, concerning for an abscess. No soft tissue air is seen. 2. Small right knee joint effusion with synovial thickening. This likely communicates with the aforementioned suspected abscess. Consider arthrocentesis to evaluate for septic arthritis, as clinically indicated. 3. Edema throughout the right lower extremity subcutaneous tissues, which could represent cellulitis. [facility] Workstation ID: [id number] Laboratory and Additional Data Reviewed: Laboratory 08/08/23 1:44 PM Microbiology 08/08/23 1:44 PM Radiology 08/08/23 1:44 PM Medications 08/08/23 1:44 PM Lab Results Component Value Date WBC 2.72 (L) 08/06/2023 HGB 9.6 (L) 08/06/2023 HCT 30.9 (L) 08/06/2023 MCV 70.5 (L) 08/06/2023 PLT 84 (L) 08/06/2023 Lab Results Component Value Date GLUCOSE 127 (H) 08/06/2023 CALCIUM 8.0 (L) 08/06/2023 NA 139 08/06/2023 K 4.6 08/06/2023 CL 107 08/06/2023 BUN 17 08/06/2023 CREATININE 0.60 08/06/2023 Problem List Items Addressed This Visit None Visit Diagnoses Wound cellulitis - Primary I have taken time to review patient's information and having discussions with appropriate care teams, I appreciate seeing your patient, will continue to follow with you, and adjust with more information. Medical Decision Making: Moderate This note is created with the assistance of a speech-recognition program. While intending to generate a document that actually reflects the content of the visit, the document can still have some errors including those of syntax and sound a- like substitutions which may escape proofreading. In such instances, actual meaning can be extrapolated by contextual derivation. [facility] [place] Assessment and Plan Carmen Gilman is a 58 y.o. adult patient of Ani Worley CNP with history hypertension, hyperlipidemia, COPD, adrenal insufficiency on prednisone pills, opiate dependence on Suboxone, cirrhotic liver, A-fib, chronic lower extremity wound chronic venous stasis, right lateral leg full-thickness ulcer s/p hematoma evacuation in April 2023, chronic pain syndrome, with complex right suprapatellar joint effusion s/p right total knee replacement requiring aspiration by Dr. Dukest May, chronic right-sided heart failure with pulm hypertension, portal hypertension and esophageal varices, pancytopenia, presented to [facility] due to wounds in the lower extremity with drainage and pain. Patient had recent positive gross from the wound and blood consent of bacteremia admitted for IV antibiotic. Right lower extremity wounds History of bacteremia Chronic venous stasis Chronic right lateral leg full-thickness ulcer Right ankle and above the right knee IV antibiotic with Zosyn initially then switched to Keflex and Bactrim on 08/04 per ID recommendation, obtain oral antibiotic discontinued and restarted on Zosyn on 08/06 Follow-up MRSA negative, discontinue vancomycin Follow-up blood cultures, wound culture, NGTD ESR, CRP WNL Podiatry on board status post wound VAC, split thickness skin graft applicatio done on 08/05 recommendation to keep the patient few more days in the hospital ID on board complex right suprapatellar joint effusion Possible suprapatellar subcutaneous abscess Possible septic right total knee replacement status post right total knee replacement required aspiration by Dr. Dukes in May culture showed no growth at that time Also presents with draining wound at that area CT scan of the right knee showed 2.8 x 2.5 cm fluid collection in the suprapatellar subcutaneous soft tissue concerning for an abscess Consult orthopedic Continue antibiotic as above Pain control PT OT recommendation up to 5 sessions per week patient is refusing knee aspiration, have a detailed discussion with the patient on 08/01 risks and benefits of knee aspiration. Patient understands all the risk and benefits and refuses to continue with knee aspiration. Pancytopenia Possible iron deficiency anemia History of beta thalassemia On 08/04 hemoglobin 9.4, white blood cells 2.3, platelets 84 On 08/06, hemoglobin 9.6, white blood cells 2.7, platelets 84 vitamin B12, folate within normal limits iron panel, iron level 37, ferritin 33, iron saturation 14, TIBC 273 LDH within normal limits Consult oncology, CBC next a.m. Chronic pain syndrome History of opioid dependency Previously on Suboxone not anymore Taking Percocet as needed Diabetes mellitus ruled out A1c 4.5 History of paroxysmal atrial fibrillation Is off of anticoagulation taking Cardizem CD 240 mg daily heart rate is controlled Patient denies any history of A-fib probably he is not aware of that Chronic adrenal insufficiency Is maintained on oral prednisone 5 mg daily Chronic obstructive pulmonary disease, he is in denial that he has COPD Stable without evidence of exacerbation Peripheral neuropathy Is maintained on gabapentin Discharge Planning Medically Stable for Discharge Date: 08/11 Patient requires continued hospitalization due to: IV antibiotic, podiatry evaluation, Discharge Location possible SNF Quality Measures DVT Prophylaxis: heparin subcutaneous Tavera Catheter: absent Code Status full code Primary Contact Information Subjective Status post dressing changes done today by podiatry, mild foot pain, no fever overnight, no shortness of breath, Vital signs stable Labs reviewed BP 111/67 Pulse 75 Temp 98.4 F (36.9 C) (Oral) Resp 18 Ht 6' Wt 108.9 kg (240 lb) SpO2 96% BMI 32.55 kg/m Physical Examination General Appearance: somnolent; chronically ill appearing; in no acute distress HEENT: Head- normocephalic; Eyes- EOMI, sclera anicteric; Throat- mucous membranes moist Cardiovascular: regular rate and rhythm; normal S1, S2; no murmurs, rubs, clicks or gallops; peripheral edema 1+ Respiratory: lungs clear to auscultation; without wheezes, rales or rhonchi; on room air Abdomen: soft, non-tender, non-distended Neurological: oriented x 3; normal speech; no focal findings or movement disorder noted Musculoskeletal: no significant deformity or tenderness to palpation Skin: Erythema in the bilateral lower extremity bluish discoloration of the right lower extremity, clean and dry dressing noted. There is an subcutaneous abscess on the right lower extremity superior to the right knee open and oozing some serous fluid. Psych: normal mood and affect Images from the original note were not included. Podiatry Inpatient progress note 08/08/2023 RODRIGUE [facility] Patient Name: Carmen Gilman. . Date of : 1965, 58 y.o.. Gender: male. Date of Consultation: 08/08/2023. Author: Quyen Franco Assessment: Bilateral lower extremity wounds Right knee abscess/wound Bilateral lower extremity lymphedema Diabetic peripheral neuropathy Plan: Patient was seen and evaluated. Discussed all clinical findings CRP normal, ESR normal. WBC 2.30. Hemoglobin A1c 4.7 Wound culture from right leg no growth (previously grew steno trophomonas maltophilia/xanthomas on leg swab and MSSA on surgical cultures). Right knee culture grew GPB, culture obtained several days after starting IV antibiotics due to patient's refusal previously. Infectious disease following No new imaging of lower legs available, no indication for updated imaging Right knee open wound concerning for underlying abscess. CT right knee with contrast showing a 2.8 x 2.5 cm fluid collection within the suprapatellar subcutaneous soft tissues concerning for an abscess. Small right knee joint effusion likely communicates with the aforementioned suspected abscess. Patient refused knee aspiration per orthopedic surgeon Dr. Dukes Left leg dressing: Cleanse ulcer with saline, place double layer Gavino directly onto wound bed cut to size. Cover with small piece of Adaptic, 4 x 4 gauze, Kerlix. Dressing change every other day Elevate legs as much as able. No weightbearing restrictions to either foot. S/p split-thickness skin graft application to right lower extremity per Dr. Gonzales 08/05. Dressing changes per podiatry to right lower leg and thigh. Continue dressing changes to left lower extremity per nursing. Plan to observe patient and graft host site in the next 2 days prior to discharge. Patient agreeable to IV antibiotics on discharge per infectious disease Subjective: Patient seen in his room, sitting on the edge of the bed with both legs on the ground. More cooperative with his care than before, still with some tenderness to right thigh dressing change. No new pedal complaints otherwise. Physical Examination: BP (!) 157/81 Pulse 85 Temp 97.8 F (36.6 C) (Axillary) Resp 16 Ht 6' Wt 108.9 kg (240 lb) SpO2 94% BMI 32.55 kg/m General Appearance: Alert, cooperative, no distress, appears older than stated age. Podiatric Exam Vascular: DP and PT pulses are faintly palpable. Cap refill time brisk to distal digits. Neurological: Gross sensation intact. Protective sensation diminished. Dermatologic: Right lower leg with intact split-thickness skin graft, tammy in place. No drainage, purulence, no evidence of hematoma or seroma. Surrounding tissues without maceration. Right thigh graft donor site still oozing blood especially after dressing was removed. No evidence of infection, odor or purulence. Musculoskeletal: Is able to wiggle digits. Compartments soft and compressible. No calf pain. Again, thank you for the opportunity to help care for your patient. Queyn Franco Images from the original note were not included. Patient Name: Carmen Gilman Admit Date: [id number] MR #: [id number] : 1965 Physicians: Ani Worley CNP (Family); No ref. provider found (Referring) Assessment: Patient with 1. Right lower extremity nonhealing wound 2. Right Knee abscess, with suspicion for prosthetic right knee infection. 3. Chronic hepatitis C,(treated at [facility], and negative hepatitis C RNA.) 4. Bilateral lower extremity edema. 5. Pancytopenia. Plan. Continue patient on current therapy Continue patient on IV Zosyn Discontinue for now p.o. Keflex, and Bactrim Status post DC IV vancomycin if negative MRSA. Reviewed right knee cultures, with no growth. I reviewed blood cultures with no growth I reviewed wound culture from the lower right leg with polymicrobial Follow-up ESR, C-reactive protein 5.[address] scan of the right knee, with 2.8 x 2.5 cm ream and seen fluid collection and the suprapatellar area, concerning for abscess, as the right small joint effusion with synovial thickening noted. Podiatry evaluation recommended. Status post skin graft. Continue dressing as per consulting group analyst recommendation. We will continue to follow with you. I reviewed deep right knee wound culture with no growth I appreciate podiatry evaluation status post skin graft. I appreciate oncology/hematology evaluation. Addendum. I did discuss with patient on his request for p.o. antibiotics. With less chances of right knee improvement, and possible history of losing leg. Subjective: Today patient had no new symptoms. Lying quietly on the bed mattress leg elevated. Tmax of 99.2. Saturating at 92% on room air. No reported fever or chills. Patient had good morning meal. Still with knee pain. Exam: PACU Vitals 08/07/23 1156 BP: Pulse: Resp: 15 Temp: SpO2: Allergies: Patient has no known allergies. Current Facility-Administered Medications: albuterol inhaler 2 puff, 2 puff, Inhalation, Q6H PRN, Moncho Joaquin MD, 2 puff at 07/31/23 0932 aspirin EC tablet 81 mg, 81 mg, Oral, Daily, Moncho Joaquin MD, 81 mg at 08/07/23 0955 diazePAM (VALIUM) tablet 5 mg, 5 mg, Oral, Daily PRN, Moncho Joaquin MD, 5 mg at 08/06/23 2219 diltiazem (CARDIZEM CD) 24 hr capsule 240 mg, 240 mg, Oral, Daily, Moncho Joaquin MD, 240 mg at 08/07/23 0955 gabapentin (NEURONTIN) capsule 400 mg, 400 mg, Oral, 4x daily, Moncho Joaquin MD, 400 mg at 08/07/23 1356 heparin (porcine) injection 5,000 Units, 5,000 Units, Subcutaneous, Q8H CASSIUS, Moncho Joaquin MD, 5,000 Units at 08/06/23 0613 insulin lispro (AdmeLOG,HumaLOG) injection 0-15 Units, 0-15 Units, Subcutaneous, at bedtime, Moncho Joaquin MD insulin lispro (AdmeLOG,HumaLOG) injection 0-30 Units, 0-30 Units, Subcutaneous, TID AC, Moncho Joaquin MD, 0 Units at 08/03/23 1630 ipratropium-albuteroL (DUO-NEB) 0.5-2.5 mg/3 ml nebulizer solution 3 mL, 3 mL, Inhalation, Q4H PRN, Moncho Joaquin MD iron sucrose (VENOFER) 300 mg in sodium chloride 0.9% (NS) 250 mL IVPB, 300 mg, Intravenous, Once, Harper Arango MD lactated Ringers infusion, 100 mL/hr, Intravenous, Continuous, Felipe Magdaleno MD lidocaine 1% (PF) (XYLOCAINE-MPF) 10 mg/mL (1 %) injection 1 mL, 1 mL, Injection, Once PRN, Cecilia Gonzales DPM melatonin Tab 5 mg, 5 mg, Oral, Nightly PRN, Dee Carnes, RODRIGUE, 5 mg at 08/05/23 2100 meloxicam (MOBIC) tablet 15 mg, 15 mg, Oral, Daily, Moncho Joaquin MD, 15 mg at 08/07/23 0955 mometasone-formoterol (DULERA) 200-5 mcg/actuation inhaler 2 puff, 2 puff, Inhalation, BID, Moncho Joaquin MD, 2 puff at 08/04/23 0922 ondansetron (ZOFRAN-ODT) disintegrating tablet 4 mg, 4 mg, Oral, Q6H PRN OR ondansetron (ZOFRAN) injection 4 mg, 4 mg, Intravenous, Q6H PRN, Moncho Joaquin MD oxyCODONE (ROXICODONE) immediate release tablet 10 mg, 10 mg, Oral, Q4H PRN, Moncho Joaquin MD, 10 mg at 08/07/23 1056 pantoprazole (PROTONIX) EC tablet 20 mg, 20 mg, Oral, Daily, Moncho Joaquin MD, 20 mg at 08/07/23 0955 piperacillin-tazobactam (ZOSYN) IVPB 3.375 g (premix), 3.375 g, Intravenous, Q8H, Kinza Garrett MD, Last Rate: 12.5 mL/hr at 08/07/23 1057, 3.375 g at 08/07/23 1057 predniSONE (DELTASONE) tablet 5 mg, 5 mg, Oral, Daily, Moncho Joaquin MD, 5 mg at 08/07/23 0955 Saline lock IV, , , Continuous AND sodium chloride (PF) (NS) flush 5 mL, 5 mL, Intravenous, PRN AND sodium chloride (PF) (NS) flush 5 mL, 5 mL, Intravenous, Q8H CASSIUS, 5 mL at 08/07/23 0600 AND sodium chloride 0.9% (NS), 0-150 mL/hr, Intravenous, PRN, Moncho Joaquin MD PMH/PSH/SH/FH reviewed, no change : Review of Systems: All systems were reviewed no change: Medications Reviewed. Chart Reviewed. Exam Findings: HEENT: Atraumatic/Pupils equal & reactive Neck: Supple, no rigidity ENT: No oral candidiasis Chest: Lungs clear bilaterally, no wheezing, or rales CVS: Normal S1 & S2+, Abdomen: Obese, mild edema, normal symmetry, Soft/non-tender. Benign, BS+ Extremities: No Deformities, bilateral lower extremity edema, and right knee ulceration, and tenderness, right leg with ulceration. Status post skin graft. Right thigh area of skin donor site is stable and dressed with blood. Skin: Intact & No Rashes, or excoriations Musculoskeletal: No joint swelling, non tender, right knee with drainage, and wound. Area dressed. TRAIN PLANNER: Awake, and Ox3 Wound: Ulceration of the right leg noted, and edema, right knee with ulceration Right leg wound right knee wound Left thigh donor site Tavera Catheter: None IV Access: Yes I reviewed Medications. I reviewed Labs. US Abdomen Complete Final Result 1. Less than optimal. 2. Course a hepatic echotexture consistent with chronic liver disease. 3. Splenomegaly approximately the same as on the prior CT 4. Gallbladder is somewhat ill-defined. A few nonspecific internal echoes. Biliary tree is not dilated Workstation ID: [id number] CT Knee Right With Contrast Final Result 1. There is a 2.8 x 2.5 cm rim-enhancing fluid collection within the suprapatellar subcutaneous soft tissues, concerning for an abscess. No soft tissue air is seen. 2. Small right knee joint effusion with synovial thickening. This likely communicates with the aforementioned suspected abscess. Consider arthrocentesis to evaluate for septic arthritis, as clinically indicated. 3. Edema throughout the right lower extremity subcutaneous tissues, which could represent cellulitis. [facility] Workstation ID: [id number] Laboratory and Additional Data Reviewed: Laboratory 08/07/23 2:36 PM Microbiology 08/07/23 2:36 PM Radiology 08/07/23 2:36 PM Medications 08/07/23 2:36 PM Lab Results Component Value Date WBC 2.72 (L) 08/06/2023 HGB 9.6 (L) 08/06/2023 HCT 30.9 (L) 08/06/2023 MCV 70.5 (L) 08/06/2023 PLT 84 (L) 08/06/2023 Lab Results Component Value Date GLUCOSE 127 (H) 08/06/2023 CALCIUM 8.0 (L) 08/06/2023 NA 139 08/06/2023 K 4.6 08/06/2023 CL 107 08/06/2023 BUN 17 08/06/2023 CREATININE 0.60 08/06/2023 Problem List Items Addressed This Visit None Visit Diagnoses Wound cellulitis - Primary I have taken time to review patient's information and having discussions with appropriate care teams, I appreciate seeing your patient, will continue to follow with you, and adjust with more information. Medical Decision Making: Moderate This note is created with the assistance of a speech-recognition program. While intending to generate a document that actually reflects the content of the visit, the document can still have some errors including those of syntax and sound a- like substitutions which may escape proofreading. In such instances, actual meaning can be extrapolated by contextual derivation. Hematology and Oncology Progress Note Patient Name: Carmen Gilman MR #: [id number] Date of Service: 08/07/23 Clinician: Harper Arango MD History of Presenting Illness: CC: Feels fair, right lower extremity in dressing. S/p right lower leg split thickness skin graft. Review of Systems : As noted above Physical Exam: Vital Signs: BP (!) 145/79 (BP Location: Right arm, Patient Position: Sitting) Pulse 76 Temp 98.7 F (37.1 C) (Axillary) Resp 15 Ht 6' Wt 108.9 kg (240 lb) SpO2 92% BMI 32.55 kg/m General: alert, coherent, no acute distress, pale Eyes: anicteric, conjunctiva and lids normal Neck: no masses or thyromegaly, Lymph: no cervical, supraclavicular, infraclavicular, axillary or inguinal adenopathy Resp: lungs clear, no dullness to percussion, normal respiratory effort Cardiac: normal S1 and S2, no murmurs, or gallops, normal PMI, Gastro: abdomen is full, spleen palpable M/S: normal station/gait, no clubbing, cyanosis or edema Skin: dressing in right lower extremity Neuro: alert, oriented, no focal deficits, motor grossly intact, speech normal Psych: judgement, insight, mood, and affect normal: Scheduled Meds: aspirin 81 mg Oral Daily diltiazem 240 mg Oral Daily gabapentin 400 mg Oral 4x daily heparin (porcine) 5,000 Units Subcutaneous Q8H CASSIUS lispro insulin 0-15 Units Subcutaneous at bedtime insulin lispro 0-30 Units Subcutaneous TID AC meloxicam 15 mg Oral Daily mometasone-formoterol 2 puff Inhalation BID pantoprazole 20 mg Oral Daily piperacillin-tazobactam (ZOSYN) extended infusion 3.375 g Intravenous Q8H predniSONE 5 mg Oral Daily sodium chloride (PF) 5 mL Intravenous Q8H [facility] Laboratory and Additional Data Reviewed: Laboratory 08/07/23 12:41 PM Microbiology 08/07/23 12:41 PM Pathology 08/07/23 12:41 PM Radiology 08/07/23 12:41 PM Cardiology 08/07/23 12:41 PM Medications 08/07/23 12:41 PM Transcriptions 08/07/23 12:41 PM Results from last 7 days Lab Units 08/06/23 0445 08/05/23 0423 08/04/23 0440 WBC K/mcL 2.72* 2.48* 2.30* HGB g/dL 9.6* 9.4* 9.4* HCT % 30.9* 30.1* 30.6* PLT K/mcL 84* 84* 84* Results from last 7 days Lab Units 08/06/23 0445 08/05/23 0423 08/04/23 0440 SODIUM mmol/L 139 139 139 POTASSIUM mmol/L 4.6 4.3 4.3 CHLORIDE mmol/L 107 107 107 BUN mg/dL 17 21 18 CREATININE mg/dL 0.60 0.75 0.60 CALCIUM mg/dL 8.0* 7.9* 8.4 TOTAL PROTEIN g/dL 6.8 6.4 6.6 BILIRUBIN TOTAL mg/dL 0.4 0.5 0.5 ALK PHOS U/L 64 70 65 ALTR U/L 14 14 15 AST U/L 17 13 13 GLUCOSE mg/dL 127* 110* 92 US Abdomen Complete Final Result 1. Less than optimal. 2. Course a hepatic echotexture consistent with chronic liver disease. 3. Splenomegaly approximately the same as on the prior CT 4. Gallbladder is somewhat ill-defined. A few nonspecific internal echoes. Biliary tree is not dilated Workstation ID: [id number] CT Knee Right With Contrast Final Result 1. There is a 2.8 x 2.5 cm rim-enhancing fluid collection within the suprapatellar subcutaneous soft tissues, concerning for an abscess. No soft tissue air is seen. 2. Small right knee joint effusion with synovial thickening. This likely communicates with the aforementioned suspected abscess. Consider arthrocentesis to evaluate for septic arthritis, as clinically indicated. 3. Edema throughout the right lower extremity subcutaneous tissues, which could represent cellulitis. [facility]/s Workstation ID: [id number] Impression and Recommendations Pancytopenia, with features of hypochromic microcytic anemia, differential indicating neutropenia and lymphopenia. Preliminary workup has demonstrated evidence of iron deficiency, suspect a component of prolonged hospitalization/repeated phlebotomy/blood loss from the wound, rule out or GI blood loss. Suspect the cytopenias to be reactive secondary to underlying infection/chronic inflammation, rule out disorder of the bone marrow such as MDS or lymphoproliferative disorder. Would proceed with obtaining a peripheral smear evaluation, reticulocyte count, liver spleen ultrasonogram and plan further History of beta thalassemia trait, potentially contributing to the hypochromic microcytic features, the Red cell indicis may be influenced by the current iron deficiency as well. History of diabetes and COPD management as per primary team Chronic lower extremity wound, appreciate ID/ podiatry evaluation and management 08/07/2023 pancytopenia, longstanding features of hypochromic microcytic anemia attributable to thalassemia trait, current workup demonstrating evidence of iron deficiency, features of underlying cirrhosis of the liver and splenomegaly. Recommend proceeding with IV iron therapy, cytopenias secondary to hypersplenism/acute distress, monitor counts, any evidence of obvious GI blood loss, monitor reticulocyte response. Images from the original note were not included. Patient: Carmen Gilman Date of : 1965 (58 y.o.) PCP: Ani Worley CNP Procedures ASSESSMENT/PLAN: Carmen Gilman 58 y.o. adult with history of status post split-thickness skin graft applied to right leg postop day 2 doing well. Full-thickness ulcer on left lower leg improving with prizma. Bilateral lower extremity venous insufficiency. Plan: I left the dressing dry clean and intact on the right leg harvest and graft site. I communicated with Dr. Gonzales about the harvest site dressing being saturated . She was not concerned based on pictures and wanted to wait until tomorrow for a dressing change. If there is any questions please call Janet. Patient to keep both feet elevated. Patient will undergo dressing change on the right leg with hopeful discharge if doing well. No new Assessment & Plan notes have been filed under this hospital service since the last note was generated. Service: Podiatry SUBJECTIVE: History Since Last Visit: Patient is a 58-year-old male who had a split thickness skin graft applied to the right leg with a wound VAC on Tuesday by my partner Dr. Gonzales. Patient seen at bedside for his right leg graft site and left leg wound. Patient relates he is dealt with these wounds for many months. Patient is currently on IV cefazolin. Patient's last culture was no growth of the right leg on 08/02/23 and left leg 08/06/23. Patient denies nausea vomiting fevers or chills today. Patient relates he is tolerating his pain well with meds. Review of Systems: History of substance abuse , atrial fibrillation and chronic adrenal insufficiency. OBJECTIVE: Physical Examination: Integument-there is some bleeding strikethrough in the harvest site of the right thigh. Nothing draining out of the dressing. The dressing on the right distal leg was clean dry and intact. There is a full-thickness granular ulcer on the anterior aspect the left lower leg that is 3 cm x 2 cm x 2 mm looks . No pus noted no acute signs infection. Neuro-diminished bilateral feet Musculoskeletal-nonpitting edema bilateral legs and feet Vascular-DP and PT pulses 1 out of 4 bilateral feet BP (!) 145/79 (BP Location: Right arm, Patient Position: Sitting) Pulse 76 Temp 98.7 F (37.1 C) (Axillary) Resp 15 Ht 6' Wt 108.9 kg (240 lb) SpO2 92% BMI 32.55 kg/m Laboratory and Additional Data Reviewed: Reviewed:[id number]} US Abdomen Complete Narrative: EXAMINATION: US ABDOMEN COMPLETE HISTORY: Please evaluate for hepatosplenomegaly, patient with pancytopenia Injury/Trauma or Illness?:Illness/Other How long have you had these symptoms (acute/chronic)?:Acute Reason for exam?:HEPATOSPLENOMEGALY History of cancer?:unknown Surgeries, chemotherapy, or radiation?:YES L03.90 Wound cellulitis COMPARISON: CT 04/25/2022 TECHNIQUE: Transabdominal scanning STUDY QUALITY: Suboptimal secondary to body habitus and bowel gas. FINDINGS: AORTA: Not seen IVC: Not seen ASCITES: Technologist states small amount of fluid right upper quadrant. On the images there is potential trace fluid. LIVER: Echotexture is coarse. GB/BILIARY: A few inter echoes wall appears mildly thickened. CBD at the bertram is 3 mm PANCREAS: Poorly seen . KIDNEYS: Right kidney is 10.6 cm. Left kidney is 12.3 cm. No hydronephrosis on either side SPLEEN: 21 cm in length. 9 cm in girth. Homogeneous echotexture OTHER: None Impression: 1. Less than optimal. 2. Course a hepatic echotexture consistent with chronic liver disease. 3. Splenomegaly approximately the same as on the prior CT 4. Gallbladder is somewhat ill-defined. A few nonspecific internal echoes. Biliary tree is not dilated Workstation ID: [id number] [facility] [place] Assessment and Plan Carmen Gilman is a 58 y.o. adult patient of Ani Worley CNP with history hypertension, hyperlipidemia, COPD, adrenal insufficiency on prednisone pills, opiate dependence on Suboxone, cirrhotic liver, A-fib, chronic lower extremity wound chronic venous stasis, right lateral leg full-thickness ulcer s/p hematoma evacuation in April 2023, chronic pain syndrome, with complex right suprapatellar joint effusion s/p right total knee replacement requiring aspiration by Dr. Dukest May, chronic right-sided heart failure with pulm hypertension, portal hypertension and esophageal varices, pancytopenia, presented to [facility] due to wounds in the lower extremity with drainage and pain. Patient had recent positive gross from the wound and blood consent of bacteremia admitted for IV antibiotic. Right lower extremity wounds History of bacteremia Chronic venous stasis Chronic right lateral leg full-thickness ulcer Right ankle and above the right knee IV antibiotic with Zosyn initially then switched to Keflex and Bactrim on 08/04 per ID recommendation, obtain oral antibiotic discontinued and restarted on Zosyn on 08/06 Follow-up MRSA negative, discontinue vancomycin Follow-up blood cultures, wound culture, NGTD ESR, CRP WNL Podiatry on board status post wound VAC, split thickness skin graft applicatio done on 08/05 ID on board complex right suprapatellar joint effusion Possible suprapatellar subcutaneous abscess Possible septic right total knee replacement status post right total knee replacement required aspiration by Dr. Dukes in May culture showed no growth at that time Also presents with draining wound at that area CT scan of the right knee showed 2.8 x 2.5 cm fluid collection in the suprapatellar subcutaneous soft tissue concerning for an abscess Consult orthopedic Continue antibiotic as above Pain control PT OT recommendation up to 5 sessions per week patient is refusing knee aspiration, have a detailed discussion with the patient on 08/01 risks and benefits of knee aspiration. Patient understands all the risk and benefits and refuses to continue with knee aspiration. Pancytopenia Possible iron deficiency anemia On 08/04 hemoglobin 9.4, white blood cells 2.3, platelets 84 On 08/06, hemoglobin 9.6, white blood cells 2.7, platelets 84 vitamin B12, folate within normal limits iron panel, iron level 37, ferritin 33, iron saturation 14, TIBC 273 LDH within normal limits Consult oncology, workup in progress CBC next a.m. Chronic pain syndrome History of opioid dependency Previously on Suboxone not anymore Taking Percocet as needed Diabetes mellitus ruled out A1c 4.5 History of paroxysmal atrial fibrillation Is off of anticoagulation taking Cardizem CD 240 mg daily heart rate is controlled Patient denies any history of A-fib probably he is not aware of that Chronic adrenal insufficiency Is maintained on oral prednisone 5 mg daily Chronic obstructive pulmonary disease, he is in denial that he has COPD Stable without evidence of exacerbation Peripheral neuropathy Is maintained on gabapentin Discharge Planning Medically Stable for Discharge Date: 08/08 Patient requires continued hospitalization due to: IV antibiotic, podiatry evaluation, Discharge Location possible SNF Quality Measures DVT Prophylaxis: heparin subcutaneous Tavera Catheter: absent Code Status full code Primary Contact Information Subjective Status post skin graft procedure done on 08/06, patient has mild leg pain today responded well to narcotics, low-grade fever 99.2 last night, no chest pain or shortness of breath or nausea or constipation Vital signs stable Labs reviewed hemoglobin 9.6 BP (!) 145/79 (BP Location: Right arm, Patient Position: Sitting) Pulse 76 Temp 98.7 F (37.1 C) (Axillary) Resp 15 Ht 6' Wt 108.9 kg (240 lb) SpO2 92% BMI 32.55 kg/m Physical Examination General Appearance: somnolent; chronically ill appearing; in no acute distress HEENT: Head- normocephalic; Eyes- EOMI, sclera anicteric; Throat- mucous membranes moist Cardiovascular: regular rate and rhythm; normal S1, S2; no murmurs, rubs, clicks or gallops; peripheral edema 1+ Respiratory: lungs clear to auscultation; without wheezes, rales or rhonchi; on room air Abdomen: soft, non-tender, non-distended Neurological: oriented x 3; normal speech; no focal findings or movement disorder noted Musculoskeletal: no significant deformity or tenderness to palpation Skin: Erythema in the bilateral lower extremity bluish discoloration of the right lower extremity, clean and dry dressing noted. There is an subcutaneous abscess on the right lower extremity superior to the right knee open and oozing some serous fluid. Psych: normal mood and affect Images from the original note were not included. Patient Name: Carmen Gilman Admit Date: [id number] MR #: [id number] : 1965 Physicians: Ani Worley, RODRIGUE (Family); No ref. provider found (Referring) Assessment: Patient with 1. Right lower extremity nonhealing wound 2. Right Knee abscess, with suspicion for prosthetic right knee infection. 3. Chronic hepatitis C,(treated at [facility], and negative hepatitis C RNA.) 4. Bilateral lower extremity edema. Plan. Continue patient on current therapy Restart patient on IV Zosyn Discontinue for now p.o. Keflex, and Bactrim Status post DC IV vancomycin if negative MRSA. Reviewed right knee cultures, with no growth. I reviewed blood cultures with no growth I reviewed wound culture from the lower right leg with polymicrobial Follow-up ESR, C-reactive protein 5.[address] scan of the right knee, with 2.8 x 2.5 cm ream and seen fluid collection and the suprapatellar area, concerning for abscess, as the right small joint effusion with synovial thickening noted. Podiatry evaluation recommended. Scheduling for skin graft. Follow-up consulting group analyst evaluation, Continue dressing as per consulting group analyst recommendation. We will continue to follow with you. I reviewed deep right knee wound culture with no growth I discussed with the consulting group analyst, Dr. Gonzales, scheduling for skin graft. Addendum. I did discuss with patient on his request for p.o. antibiotics. With less chances of right knee improvement, and possible history of losing leg. Subjective: Patient complaining of pain in the donor site of skin graft, otherwise no fever no chills. Right leg dressed. Right knee dressed. Tmax of 98.2. Saturating at 95% on room air. Patient wants IV antibiotics restarted since he has a new line. Exam: PACU Vitals 08/06/23 1242 BP: Pulse: Resp: 17 Temp: SpO2: Allergies: Patient has no known allergies. Current Facility-Administered Medications: albuterol inhaler 2 puff, 2 puff, Inhalation, Q6H PRN, Moncho Joaquin MD, 2 puff at 07/31/23 0932 aspirin EC tablet 81 mg, 81 mg, Oral, Daily, Moncho Joaquin MD, 81 mg at 08/06/23 1022 cephALEXin (KEFLEX) capsule 500 mg, 500 mg, Oral, Q6H [facility], Kinza Garrett MD, 500 mg at 08/06/23 1239 diazePAM (VALIUM) tablet 5 mg, 5 mg, Oral, Daily PRN, Moncho Joaquin MD, 5 mg at 08/05/23 1009 diltiazem (CARDIZEM CD) 24 hr capsule 240 mg, 240 mg, Oral, Daily, Moncho Joaquin MD, 240 mg at 08/06/23 1022 gabapentin (NEURONTIN) capsule 400 mg, 400 mg, Oral, 4x daily, Moncho Joaquin MD, 400 mg at 08/06/23 1239 heparin (porcine) injection 5,000 Units, 5,000 Units, Subcutaneous, Q8H [facility], Moncho Joaquin MD, 5,000 Units at 08/06/23 0613 insulin lispro (AdmeLOG,HumaLOG) injection 0-15 Units, 0-15 Units, Subcutaneous, at bedtime, Moncho Joaquin MD insulin lispro (AdmeLOG,HumaLOG) injection 0-30 Units, 0-30 Units, Subcutaneous, TID AC, Moncho Joaquin MD, 0 Units at 08/03/23 1630 ipratropium-albuteroL (DUO-NEB) 0.5-2.5 mg/3 ml nebulizer solution 3 mL, 3 mL, Inhalation, Q4H PRN, Moncho Joaquin MD lactated Ringers infusion, 100 mL/hr, Intravenous, Continuous, Felipe Magdaleno MD lidocaine 1% (PF) (XYLOCAINE-MPF) 10 mg/mL (1 %) injection 1 mL, 1 mL, Injection, Once PRN, Cecilia Gonzales, YURIDIA melatonin Tab 5 mg, 5 mg, Oral, Nightly PRN, Dee Carnes, RODRIGUE, 5 mg at 08/05/23 2100 meloxicam (MOBIC) tablet 15 mg, 15 mg, Oral, Daily, Moncho Joaquin MD, 15 mg at 08/06/23 1022 mometasone-formoterol (DULERA) 200-5 mcg/actuation inhaler 2 puff, 2 puff, Inhalation, BID, Moncho Joaquin MD, 2 puff at 08/04/23 0922 ondansetron (ZOFRAN-ODT) disintegrating tablet 4 mg, 4 mg, Oral, Q6H PRN OR ondansetron (ZOFRAN) injection 4 mg, 4 mg, Intravenous, Q6H PRN, Moncho Joaquin MD oxyCODONE (ROXICODONE) immediate release tablet 10 mg, 10 mg, Oral, Q4H PRN, Moncho Joaquin MD, 10 mg at 08/06/23 1242 pantoprazole (PROTONIX) EC tablet 20 mg, 20 mg, Oral, Daily, Moncho Joaquin MD, 20 mg at 08/06/23 1022 predniSONE (DELTASONE) tablet 5 mg, 5 mg, Oral, Daily, Moncho Joaquin MD, 5 mg at 08/06/23 1022 Saline lock IV, , , Continuous AND sodium chloride (PF) (NS) flush 5 mL, 5 mL, Intravenous, PRN AND sodium chloride (PF) (NS) flush 5 mL, 5 mL, Intravenous, Q8H CASSIUS, 5 mL at 08/01/23 1400 AND sodium chloride 0.9% (NS), 0-150 mL/hr, Intravenous, PRN, Moncho Joaquin MD sulfamethoxazole-trimethoprim (BACTRIM DS,SEPTRA DS) 800-160 mg per tablet 1 tablet, 1 tablet, Oral, Q12H CASSIUS, Kinza Garrett MD, 1 tablet at 08/06/23 1022 PMH/PSH/SH/ reviewed, no change : Review of Systems: All systems were reviewed no change: Medications Reviewed. Chart Reviewed. Exam Findings: HEENT: Atraumatic/Pupils equal & reactive Neck: Supple, no rigidity ENT: No oral candidiasis Chest: Lungs clear bilaterally, no wheezing, or rales CVS: Normal S1 & S2+, Abdomen: Obese, mild edema, normal symmetry, Soft/non-tender. Benign, BS+ Extremities: No Deformities, bilateral lower extremity edema, and right knee ulceration, and tenderness, right leg with ulceration. Status post skin graft. Right thigh area of skin donor site is stable and dressed with blood. Skin: Intact & No Rashes, or excoriations Musculoskeletal: No joint swelling, non tender, right knee with drainage, and wound. Area dressed. TRAIN PLANNER: Awake, and Ox3 Wound: Ulceration of the right leg noted, and edema, right knee with ulceration Right leg wound right knee wound Tavera Catheter: None IV Access: Yes I reviewed Medications. I reviewed Labs. CT Knee Right With Contrast Final Result 1. There is a 2.8 x 2.5 cm rim-enhancing fluid collection within the suprapatellar subcutaneous soft tissues, concerning for an abscess. No soft tissue air is seen. 2. Small right knee joint effusion with synovial thickening. This likely communicates with the aforementioned suspected abscess. Consider arthrocentesis to evaluate for septic arthritis, as clinically indicated. 3. Edema throughout the right lower extremity subcutaneous tissues, which could represent cellulitis. [facility]/[employer] Workstation ID: [id number] US Abdomen Complete (Results Pending) Laboratory and Additional Data Reviewed: Laboratory 08/06/23 3:45 PM Microbiology 08/06/23 3:45 PM Radiology 08/06/23 3:45 PM Medications 08/06/23 3:45 PM Lab Results Component Value Date WBC 2.72 (L) 08/06/2023 HGB 9.6 (L) 08/06/2023 HCT 30.9 (L) 08/06/2023 MCV 70.5 (L) 08/06/2023 PLT 84 (L) 08/06/2023 Lab Results Component Value Date GLUCOSE 127 (H) 08/06/2023 CALCIUM 8.0 (L) 08/06/2023 NA 139 08/06/2023 K 4.6 08/06/2023 CL 107 08/06/2023 BUN 17 08/06/2023 CREATININE 0.60 08/06/2023 Problem List Items Addressed This Visit None Visit Diagnoses Wound cellulitis - Primary I have taken time to review patient's information and having discussions with appropriate care teams, I appreciate seeing your patient, will continue to follow with you, and adjust with more information. Medical Decision Making: Moderate This note is created with the assistance of a speech-recognition program. While intending to generate a document that actually reflects the content of the visit, the document can still have some errors including those of syntax and sound a- like substitutions which may escape proofreading. In such instances, actual meaning can be extrapolated by contextual derivation. Patient: Carmen Gilman Date of : 1965 (58 y.o.) PCP: Ani Worley CNP Procedures ASSESSMENT/PLAN: Carmen Gilman 58 y.o. adult with history of status post split-thickness skin graft applied to right leg postop day 1 doing well. Full-thickness ulcer on left lower leg. Bilateral lower extremity venous insufficiency. Plan: I left the dressing dry clean and intact on the right leg harvest and graft site. Culture left leg ulceration taken, apply Gavino dry sterile dressing with Teddy. Patient to keep both feet elevated. Patient will undergo dressing change for right leg on Tuesday and the left leg possibly tomorrow. No new Assessment & Plan notes have been filed under this hospital service since the last note was generated. Service: Podiatry SUBJECTIVE: History Since Last Visit: Patient is a 58-year-old male who had a split thickness skin graft applied to the right leg with a wound VAC yesterday by my partner. Patient seen at bedside for his right leg graft site and left leg wound. Patient lates he is dealt with these wounds for many months. Patient is currently on IV cefazolin. Patient's last culture was no growth of the right leg on 08/02/23 patient denies nausea vomiting fevers or chills today. Patient relates he is tolerating his pain well with meds. Review of Systems: History of substance abuse , atrial fibrillation and chronic adrenal insufficiency. OBJECTIVE: Physical Examination: Integument-there is some bleeding strikethrough in the harvest site of the right thigh. Nothing draining out of the dressing. The dressing on the right leg was clean dry and intact. There is a full-thickness ulcer on the anterior aspect the left lower leg it is 3 cm x 2 cm x 2 mm. No pus noted no acute signs infection. Neuro-diminished bilateral feet Musculoskeletal-nonpitting edema bilateral legs and feet Vascular-DP and PT pulses 1 out of 4 bilateral feet BP (!) 148/72 (BP Location: Right leg, Patient Position: Lying) Pulse 85 Temp 98 F (36.7 C) (Axillary) Resp 17 Ht 6' Wt 108.9 kg (240 lb) SpO2 95% BMI 32.55 kg/m Laboratory and Additional Data Reviewed: Reviewed:[id number]} CT Knee Right With Contrast Narrative: EXAMINATION: CT KNEE RIGHT WITH CONTRAST HISTORY: ORDERING SYSTEM PROVIDED HISTORY: Swelling, redness, concern for abscess, TECHNOLOGIST PROVIDED HISTORY: Illness/Other Reason for exam: open wound check to R knee, swelling, eval for abscess Encounter Type: Initial Additional signs and symptoms: . ORDERING SYSTEM PROVIDED DIAGNOSIS CODES: L03.90 Wound cellulitis COMPARISON: Correlation is made with right knee radiographs dated 05/30/2023. TECHNIQUE: Dose reduction techniques were achieved by using automated exposure control and/or adjustment of mA and/or kV according to patient size and/or use of iterative reconstruction technique. Axial CT images through the right knee were obtained after the intravenous administration of contrast. Coronal and sagittal reformats were obtained. CONTRAST: IOPAMIDOL 370 MG IODINE/ML (76%) INTRAVENOUS SOLUTION - 75 mL FINDINGS: There are postsurgical changes of a right total knee arthroplasty. The hardware causes streak artifact, which renders evaluation of adjacent structures suboptimal. No acute fracture or dislocation is seen. There is a small joint effusion with synovial wall thickening. There is no disproportionate fatty muscular atrophy throughout the imaged right lower extremity. Atherosclerotic calcifications are noted. There is a 2.8 x 2.5 cm rim-enhancing fluid collection within the suprapatellar subcutaneous soft tissues (series 3, image 69). No soft tissue air is seen. Edema is seen throughout the right lower extremity subcutaneous tissues. Impression: 1. There is a 2.8 x 2.5 cm rim-enhancing fluid collection within the suprapatellar subcutaneous soft tissues, concerning for an abscess. No soft tissue air is seen. 2. Small right knee joint effusion with synovial thickening. This likely communicates with the aforementioned suspected abscess. Consider arthrocentesis to evaluate for septic arthritis, as clinically indicated. 3. Edema throughout the right lower extremity subcutaneous tissues, which could represent cellulitis. [facility]/[employer] Collaboration Network Workstation ID: [id number] [facility] [place] Assessment and Plan Carmen Gilman is a 58 y.o. adult patient of Ani Worley CNP with history hypertension, hyperlipidemia, COPD, adrenal insufficiency on prednisone pills, opiate dependence on Suboxone, cirrhotic liver, A-fib, chronic lower extremity wound chronic venous stasis, right lateral leg full-thickness ulcer s/p hematoma evacuation in April 2023, chronic pain syndrome, with complex right suprapatellar joint effusion s/p right total knee replacement requiring aspiration by Dr. Dukest May, chronic right-sided heart failure with pulm hypertension, portal hypertension and esophageal varices, pancytopenia, presented to [facility] due to wounds in the lower extremity with drainage and pain. Patient had recent positive gross from the wound and blood consent of bacteremia admitted for IV antibiotic. Right lower extremity wounds History of bacteremia Chronic venous stasis Chronic right lateral leg full-thickness ulcer Right ankle and above the right knee IV antibiotic with Zosyn initially then switched to Keflex and Bactrim on 08/04 per ID recommendation Follow-up MRSA negative, discontinue vancomycin Follow-up blood cultures, wound culture, NGTD ESR, CRP WNL Podiatry on board status post wound VAC, split thickness skin graft applicatio done on 08/05 ID on board complex right suprapatellar joint effusion Possible suprapatellar subcutaneous abscess Possible septic right total knee replacement status post right total knee replacement required aspiration by Dr. Dukes in May culture showed no growth at that time Also presents with draining wound at that area CT scan of the right knee showed 2.8 x 2.5 cm fluid collection in the suprapatellar subcutaneous soft tissue concerning for an abscess Consult orthopedic Continue antibiotic as above Pain control PT OT recommendation up to 5 sessions per week patient is refusing knee aspiration, have a detailed discussion with the patient on 08/01 risks and benefits of knee aspiration. Patient understands all the risk and benefits and refuses to continue with knee aspiration. Pancytopenia Possible iron deficiency anemia On 08/04 hemoglobin 9.4, white blood cells 2.3, platelets 84 On 08/06, hemoglobin 9.6, white blood cells 2.7, platelets 84 vitamin B12, folate within normal limits iron panel, iron level 37, ferritin 33, iron saturation 14, TIBC 273 LDH within normal limits Consult oncology, workup in progress CBC next a.m. Chronic pain syndrome History of opioid dependency Previously on Suboxone not anymore Taking Percocet as needed Diabetes mellitus ruled out A1c 4.5 History of paroxysmal atrial fibrillation Is off of anticoagulation taking Cardizem CD 240 mg daily heart rate is controlled Patient denies any history of A-fib probably he is not aware of that Chronic adrenal insufficiency Is maintained on oral prednisone 5 mg daily Chronic obstructive pulmonary disease, he is in denial that he has COPD Stable without evidence of exacerbation Peripheral neuropathy Is maintained on gabapentin Discharge Planning Medically Stable for Discharge Date: 08/07 Patient requires continued hospitalization due to: IV antibiotic, podiatry evaluation, Discharge Location possible SNF Quality Measures DVT Prophylaxis: heparin subcutaneous Tavera Catheter: absent Code Status full code Primary Contact Information Subjective Status post skin graft procedure done yesterday, patient feeling better denies any pain, no acute events overnight Vital signs stable BP (!) 148/72 (BP Location: Right leg, Patient Position: Lying) Pulse 85 Temp 98 F (36.7 C) (Axillary) Resp 16 Ht 6' Wt 108.9 kg (240 lb) SpO2 95% BMI 32.55 kg/m Physical Examination General Appearance: somnolent; chronically ill appearing; in no acute distress HEENT: Head- normocephalic; Eyes- EOMI, sclera anicteric; Throat- mucous membranes moist Cardiovascular: regular rate and rhythm; normal S1, S2; no murmurs, rubs, clicks or gallops; peripheral edema 1+ Respiratory: lungs clear to auscultation; without wheezes, rales or rhonchi; on room air Abdomen: soft, non-tender, non-distended Neurological: oriented x 3; normal speech; no focal findings or movement disorder noted Musculoskeletal: no significant deformity or tenderness to palpation Skin: Erythema in the bilateral lower extremity bluish discoloration of the right lower extremity, clean and dry dressing noted. There is an subcutaneous abscess on the right lower extremity superior to the right knee open and oozing some serous fluid. Psych: normal mood and affect Images from the original note were not included. Patient Name: Carmen Gilman Admit Date: [id number] MR #: [id number] : 1965 Physicians: Ani Worley, ENVIRONMENTAL EMERGENCIES PLANNER (Family); No ref. provider found (Referring) Assessment: Patient with 1. Right lower extremity nonhealing wound 2. Right Knee abscess, with suspicion for prosthetic right knee infection. 3. Chronic hepatitis C,(treated at [facility], and negative hepatitis C RNA.) 4. Bilateral lower extremity edema. Plan. Continue patient on current therapy Patient not on IV Zosyn (patient refusing any central line or IV line) Will start patient on p.o. Keflex, and Bactrim Status post DC IV vancomycin if negative MRSA. Reviewed right knee cultures, with no growth. I reviewed blood cultures with no growth I reviewed wound culture from the lower right leg with polymicrobial Follow-up ESR, C-reactive protein 5.[address] scan of the right knee, with 2.8 x 2.5 cm ream and seen fluid collection and the suprapatellar area, concerning for abscess, as the right small joint effusion with synovial thickening noted. Podiatry evaluation recommended. Scheduling for skin graft. Follow-up consulting group analyst evaluation, Continue dressing as per consulting group analyst recommendation. We will continue to follow with you. I reviewed deep right knee wound culture with no growth I discussed with the consulting group analyst, Dr. Gonzales, scheduling for skin graft. Addendum. I did discuss with patient on his request for p.o. antibiotics. With less chances of right knee improvement, and possible history of losing leg. Subjective: Patient reevaluated today, still scheduling for skin graft. No fever or chills. Tmax of 98.8. Saturating 97% on room air. Exam: PACU Vitals 08/05/23 1607 BP: 132/80 Pulse: 69 Resp: 15 Temp: 98.2 F (36.8 C) SpO2: 97% Allergies: Patient has no known allergies. Current Facility-Administered Medications: [OCT Hold] albuterol inhaler 2 puff, 2 puff, Inhalation, Q6H PRN, Moncho Joaquin MD, 2 puff at 07/31/23 0932 [MAR Hold] aspirin EC tablet 81 mg, 81 mg, Oral, Daily, Moncho Joaquin MD, 81 mg at 08/04/23 0920 [OCT Hold] cephALEXin (KEFLEX) capsule 500 mg, 500 mg, Oral, Q6H [facility], 500 mg at 08/05/23 0403 [OCT Hold] diazePAM (VALIUM) tablet 5 mg, 5 mg, Oral, Daily PRN, Moncho Joaquin MD, 5 mg at 08/05/23 1009 [OCT Hold] diltiazem (CARDIZEM CD) 24 hr capsule 240 mg, 240 mg, Oral, Daily, Moncho Joaquin MD, 240 mg at 08/04/23 0920 [OCT Hold] gabapentin (NEURONTIN) capsule 400 mg, 400 mg, Oral, 4x daily, Moncho Joaquin MD, 400 mg at 08/04/23 2012 [OCT Hold] heparin (porcine) injection 5,000 Units, 5,000 Units, Subcutaneous, Q8H [facility], Moncho Joaquin MD, 5,000 Units at 07/31/23 0454 [OCT Hold] insulin lispro (AdmeLOG,HumaLOG) injection 0-15 Units, 0-15 Units, Subcutaneous, at bedtime, Moncho Joaquin MD [MAR Hold] insulin lispro (AdmeLOG,HumaLOG) injection 0-30 Units, 0-30 Units, Subcutaneous, TID AC, Moncho Joaquin MD, 0 Units at 08/03/23 1630 [OCT Hold] ipratropium-albuteroL (DUO-NEB) 0.5-2.5 mg/3 ml nebulizer solution 3 mL, 3 mL, Inhalation, Q4H PRN, Moncho Joaquin MD [OCT Hold] iron sucrose (VENOFER) 300 mg in sodium chloride 0.9% (NS) 250 mL IVPB, 300 mg, Intravenous, Once, Harper Arango MD [MAR Hold] lidocaine 1% (PF) (XYLOCAINE-MPF) 10 mg/mL (1 %) injection 1 mL, 1 mL, Injection, Once PRN, Cecilia Gonzales, YURIDIA [OCT Hold] melatonin Tab 5 mg, 5 mg, Oral, Nightly PRN, Dee Carnes, ENVIRONMENTAL EMERGENCIES PLANNER, 5 mg at 08/04/23 2259 [OCT Hold] meloxicam (MOBIC) tablet 15 mg, 15 mg, Oral, Daily, Moncho Joaquin MD, 15 mg at 08/04/23 0920 [OCT Hold] mometasone-formoterol (DULERA) 200-5 mcg/actuation inhaler 2 puff, 2 puff, Inhalation, BID, Moncho Joaquin MD, 2 puff at 08/04/23 0922 [OCT Hold] ondansetron (ZOFRAN-ODT) disintegrating tablet 4 mg, 4 mg, Oral, Q6H PRN OR [MAR Hold] ondansetron (ZOFRAN) injection 4 mg, 4 mg, Intravenous, Q6H PRN, Moncho Joaquin MD [MAR Hold] oxyCODONE (ROXICODONE) immediate release tablet 10 mg, 10 mg, Oral, Q4H PRN, Moncho Joaquin MD, 10 mg at 08/05/23 1211 [MAR Hold] pantoprazole (PROTONIX) EC tablet 20 mg, 20 mg, Oral, Daily, Moncho Joaquin MD, 20 mg at 08/04/23 0920 [MAR Hold] predniSONE (DELTASONE) tablet 5 mg, 5 mg, Oral, Daily, Moncho Joaquin MD, 5 mg at 08/04/23 0920 Saline lock IV, , , Continuous AND [OCT Hold] sodium chloride (PF) (NS) flush 5 mL, 5 mL, Intravenous, PRN AND [MAR Hold] sodium chloride (PF) (NS) flush 5 mL, 5 mL, Intravenous, Q8H CASSIUS, 5 mL at 08/01/23 1400 AND [MAR Hold] sodium chloride 0.9% (NS), 0-150 mL/hr, Intravenous, PRN, Moncho Joaquin MD [MAR Hold] sulfamethoxazole-trimethoprim (BACTRIM DS,SEPTRA DS) 800-160 mg per tablet 1 tablet, 1 tablet, Oral, Q12H Tami HAMMONDS Uchenna Anicetus, MD, 1 tablet at 08/04/232011 Facility-Administered Medications Ordered in Other Encounters: dexAMETHasone (DECADRON) injection, , Intravenous, PRN, Lu, Maury Luke, RN INTERVENTIONAL, 4 mg at 08/05/23 1630 fentaNYL (SUBLIMAZE) injection, , Intravenous, PRN, Lu, Maury Luke, RN INTERVENTIONAL, 50 mcg at 08/05/23 1703 lidocaine 20 mg/mL (2 %) injection, , Intravenous, PRN, Lu, Maury Luke, RN INTERVENTIONAL, 100 mg at 08/05/23 1627 midazolam (VERSED) injection, , Intravenous, PRN, Lu, Maury Luke, RN INTERVENTIONAL, 2 mg at 08/05/23 1624 ondansetron (ZOFRAN) injection, , Intravenous, PRN, Lu, Maury Luke, RN INTERVENTIONAL, 4 mg at 08/05/23 1630 propofoL (DIPRIVAN) injection, , Intravenous, PRN, Lu, Maury Luke, RN INTERVENTIONAL, 40 mg at 08/05/23 1703 sodium chloride 0.9% (NS), , Intravenous, Continuous PRN, Lu, Maury Luke, RN INTERVENTIONAL, New Bag at 08/05/23 1623 PMH/PSH/SH/FH reviewed, no change : Review of Systems: All systems were reviewed no change: Medications Reviewed. Chart Reviewed. Exam Findings: HEENT: Atraumatic/Pupils equal & reactive Neck: Supple, no rigidity ENT: No oral candidiasis Chest: Lungs clear bilaterally, no wheezing, or rales CVS: Normal S1 & S2+, Abdomen: Obese, mild edema, normal symmetry, Soft/non-tender. Benign, BS+ Extremities: No Deformities, bilateral lower extremity edema, and right knee ulceration, and tenderness, right leg with ulceration. Patient on VAC dressing on the right leg ulceration. Skin: Intact & No Rashes, or excoriations Musculoskeletal: No joint swelling, non tender TRAIN PLANNER: Awake, and Ox3 Wound: Ulceration of the right leg noted, and edema, right knee with ulceration Right leg wound right knee wound Tavera Catheter: None IV Access: Yes I reviewed Medications. I reviewed Labs. CT Knee Right With Contrast Final Result 1. There is a 2.8 x 2.5 cm rim-enhancing fluid collection within the suprapatellar subcutaneous soft tissues, concerning for an abscess. No soft tissue air is seen. 2. Small right knee joint effusion with synovial thickening. This likely communicates with the aforementioned suspected abscess. Consider arthrocentesis to evaluate for septic arthritis, as clinically indicated. 3. Edema throughout the right lower extremity subcutaneous tissues, which could represent cellulitis. [employer]/The Web Collaboration Network Workstation ID: [id number] Abdomen Complete (Results Pending) Laboratory and Additional Data Reviewed: Laboratory 08/05/23 5:12 PM Microbiology 08/05/23 5:12 PM Radiology 08/05/23 5:12 PM Medications 08/05/23 5:12 PM Lab Results Component Value Date WBC 2.48 (L) 08/05/2023 HGB 9.4 (L) 08/05/2023 HCT 30.1 (L) 08/05/2023 MCV 70.2 (L) 08/05/2023 PLT 84 (L) 08/05/2023 Lab Results Component Value Date GLUCOSE 110 (H) 08/05/2023 CALCIUM 7.9 (L) 08/05/2023 NA 139 08/05/2023 K 4.3 08/05/2023 CL 107 08/05/2023 BUN 21 08/05/2023 CREATININE 0.75 08/05/2023 Problem List Items Addressed This Visit None Visit Diagnoses Wound cellulitis - Primary I have taken time to review patient's information and having discussions with appropriate care teams, I appreciate seeing your patient, will continue to follow with you, and adjust with more information. Medical Decision Making: Moderate This note is created with the assistance of a speech-recognition program. While intending to generate a document that actually reflects the content of the visit, the document can still have some errors including those of syntax and sound a- like substitutions which may escape proofreading. In such instances, actual meaning can be extrapolated by contextual derivation. [facility] [place] Assessment and Plan Carmen Gilman is a 58 y.o. adult patient of Ani Worley CNP with history hypertension, hyperlipidemia, COPD, adrenal insufficiency on prednisone pills, opiate dependence on Suboxone, cirrhotic liver, A-fib, chronic lower extremity wound chronic venous stasis, right lateral leg full-thickness ulcer s/p hematoma evacuation in April 2023, chronic pain syndrome, with complex right suprapatellar joint effusion s/p right total knee replacement requiring aspiration by Dr. Dukest May, chronic right-sided heart failure with pulm hypertension, portal hypertension and esophageal varices, pancytopenia, presented to [facility] due to wounds in the lower extremity with drainage and pain. Patient had recent positive gross from the wound and blood consent of bacteremia admitted for IV antibiotic. Right lower extremity wounds History of bacteremia Chronic venous stasis Chronic right lateral leg full-thickness ulcer Right ankle and above the right knee IV antibiotic with Zosyn initially then switched to Keflex and Bactrim on 08/04 per ID recommendation Follow-up MRSA negative, discontinue vancomycin Follow-up blood cultures, wound culture, NGTD ESR, CRP WNL Podiatry on board status post wound VAC, plan for split thickness skin graft application today ID on board complex right suprapatellar joint effusion Possible suprapatellar subcutaneous abscess Possible septic right total knee replacement status post right total knee replacement required aspiration by Dr. Dukes in May culture showed no growth at that time Also presents with draining wound at that area CT scan of the right knee showed 2.8 x 2.5 cm fluid collection in the suprapatellar subcutaneous soft tissue concerning for an abscess Consult orthopedic Continue antibiotic as above Pain control PT OT recommendation up to 5 sessions per week patient is refusing knee aspiration, have a detailed discussion with the patient on 08/01 risks and benefits of knee aspiration. Patient understands all the risk and benefits and refuses to continue with knee aspiration. Pancytopenia Possible iron deficiency anemia On 08/04 hemoglobin 9.4, white blood cells 2.3, platelets 84 vitamin B12, folate within normal limits iron panel, iron level 37, ferritin 33, iron saturation 14, TIBC 273 LDH within normal limits Consult oncology, pending evaluation CBC next a.m. Chronic pain syndrome History of opioid dependency Previously on Suboxone not anymore Taking Percocet as needed Diabetes mellitus ruled out A1c 4.5 History of paroxysmal atrial fibrillation Is off of anticoagulation taking Cardizem CD 240 mg daily heart rate is controlled Patient denies any history of A-fib probably he is not aware of that Chronic adrenal insufficiency Is maintained on oral prednisone 5 mg daily Chronic obstructive pulmonary disease, he is in denial that he has COPD Stable without evidence of exacerbation Peripheral neuropathy Is maintained on gabapentin Discharge Planning Medically Stable for Discharge Date: Patient requires continued hospitalization due to: IV antibiotic, podiatry evaluation, Discharge Location possible SNF Quality Measures DVT Prophylaxis: heparin subcutaneous Tavera Catheter: absent Code Status full code Primary Contact Information Subjective Denies any leg pain, denies any chest pain or shortness of breath, no acute events overnight Vital signs stable BP 129/69 Pulse 72 Temp 98.4 F (36.9 C) (Axillary) Resp 16 Ht 6' Wt 108.9 kg (240 lb) SpO2 93% BMI 32.55 kg/m Physical Examination General Appearance: somnolent; chronically ill appearing; in no acute distress HEENT: Head- normocephalic; Eyes- EOMI, sclera anicteric; Throat- mucous membranes moist Cardiovascular: regular rate and rhythm; normal S1, S2; no murmurs, rubs, clicks or gallops; peripheral edema 1+ Respiratory: lungs clear to auscultation; without wheezes, rales or rhonchi; on room air Abdomen: soft, non-tender, non-distended Neurological: oriented x 3; normal speech; no focal findings or movement disorder noted Musculoskeletal: no significant deformity or tenderness to palpation Skin: Erythema in the bilateral lower extremity bluish discoloration of the right lower extremity, clean and dry dressing noted. There is an subcutaneous abscess on the right lower extremity superior to the right knee open and oozing some serous fluid. Psych: normal mood and affect Nutrition Care Follow Up Monitoring and Evaluation: PO intake was 75% or greater at most meals Nutrition Diagnosis: Increased nutrient needs related to need for wound healing as evidenced by pt has wounds with wound vac in place. Not resolved. Nutrition Intervention/Prescription: Continue Medical Food Supplements Diet: regular Oral nutrition supplement: luke twice daily, BGC once daily Nutrition Goals: PO intake > 75% most meals, supplements Start Date:08/05/2023 Expected End Date:08/11/2023 Nutrition Education: No needs at this time Assessment: Pertinent clinical information: Plan for split-thickness skin graft application to right lower extremity per Dr. Gonzales in [place] 08/05. Current weight: 108.9 kg (240 lb) Body mass index is 32.55 kg/m . Weight: no new weight Current diet order: NPO @ this time for OR Recent intake: 75-100%. Current intake does not meet estimated needs. Patient/family comments: RDN did not call patient on the phone today, NPO Difficulty Chewing/Swallowing: No Skin Integrity: 1. Right lower extremity nonhealing wound , Right Knee abscess, with suspicion for prosthetic right knee infection. GI Function: no BM recorded Physical Appearance: GAVI WILLINGHAM working @ [facility] this date Labs: Recent Labs 08/05/23 0423 NA 139 K 4.3 BICARB 27 CL 107 GLUCOSE 110* BUN 21 CREATININE 0.75 MG 2.0 PHOS 3.5 Scheduled Meds: aspirin 81 mg Oral Daily cephALEXin 500 mg Oral Q6H CASSIUS diltiazem 240 mg Oral Daily gabapentin 400 mg Oral 4x daily heparin (porcine) 5,000 Units Subcutaneous Q8H CASSIUS lispro insulin 0-15 Units Subcutaneous at bedtime insulin lispro 0-30 Units Subcutaneous TID AC meloxicam 15 mg Oral Daily mometasone-formoterol 2 puff Inhalation BID pantoprazole 20 mg Oral Daily predniSONE 5 mg Oral Daily sodium chloride (PF) 5 mL Intravenous Q8H CASSIUS sulfamethoxazole-trimethoprim 1 tablet Oral Q12H CASSIUS Continuous Infusions: sodium chloride 0.9 % Estimated Energy Needs Total Energy Estimated Needs: 2300-2400kcals Method for Estimating Needs: (25-26kcals/kg). adjbw Total Protein Estimated Needs: 109gms Method for Estimating Needs: (1.2gms/kg). adjbw Will follow-up , as needed while in-house. Tyesha Cohen RDN, Office [phone] Images from the original note were not included. Patient Name: Carmen Gilman Admit Date: [id number] MR #: [id number] : 1965 Physicians: Ani Worley, ENVIRONMENTAL EMERGENCIES PLANNER (Family); No ref. provider found (Referring) Assessment: Patient with 1. Right lower extremity nonhealing wound 2. Right Knee abscess, with suspicion for prosthetic right knee infection. 3. Chronic hepatitis C,(treated at [facility], and negative hepatitis C RNA.) 4. Bilateral lower extremity edema. Plan. Continue patient on current therapy Patient currently on IV Zosyn (patient refusing any central line or IV line) Will start patient on p.o. Keflex, and Bactrim Status post DC IV vancomycin if negative MRSA. Reviewed right knee cultures, with no growth. I reviewed blood cultures with no growth I reviewed wound culture from the lower right leg with polymicrobial Follow-up ESR, C-reactive protein 5.[address] scan of the right knee, with 2.8 x 2.5 cm ream and seen fluid collection and the suprapatellar area, concerning for abscess, as the right small joint effusion with synovial thickening noted. Podiatry evaluation recommended. Scheduling for skin graft. Follow-up consulting group analyst evaluation, Continue dressing as per consulting group analyst recommendation. We will continue to follow with you. I reviewed deep right knee wound culture with no growth Okay with midline or PICC line insertion. On discharge we will continue patient on IV Zosyn. Addendum. I did discuss with patient on his request for p.o. antibiotics. With less chances of right knee improvement, and possible history of losing leg. Subjective: Patient scheduling for skin graft, otherwise no new symptoms, still with pain in the right knee. Tmax of 98.9. Saturating at 96%.Patient remains on VAC dressing. Exam: PACU Vitals 08/04/23 1533 BP: 123/84 Pulse: 83 Resp: Temp: 98.8 F (37.1 C) SpO2: 96% Allergies: Patient has no known allergies. Current Facility-Administered Medications: albuterol inhaler 2 puff, 2 puff, Inhalation, Q6H PRN, Moncho Joaquin MD, 2 puff at 07/31/23 0932 aspirin EC tablet 81 mg, 81 mg, Oral, Daily, Moncho Joaquin MD, 81 mg at 08/04/23 0920 cephALEXin (KEFLEX) capsule 500 mg, 500 mg, Oral, Q6H [facility], Kinza Garrett MD, 500 mg at 08/04/23 1216 diazePAM (VALIUM) tablet 5 mg, 5 mg, Oral, Daily PRN, Moncho Joaquin MD, 5 mg at 08/04/23 0835 diltiazem (CARDIZEM CD) 24 hr capsule 240 mg, 240 mg, Oral, Daily, Moncho Joaquin MD, 240 mg at 08/04/23 0920 gabapentin (NEURONTIN) capsule 400 mg, 400 mg, Oral, 4x daily, Moncho Joaquin MD, 400 mg at 08/04/23 1216 heparin (porcine) injection 5,000 Units, 5,000 Units, Subcutaneous, Q8H [facility], Moncho Joaquin MD, 5,000 Units at 07/31/23 0454 insulin lispro (AdmeLOG,HumaLOG) injection 0-15 Units, 0-15 Units, Subcutaneous, at bedtime, Moncho Joaquin MD insulin lispro (AdmeLOG,HumaLOG) injection 0-30 Units, 0-30 Units, Subcutaneous, TID AC, Moncho Joaquin MD, 0 Units at 08/03/23 1630 ipratropium-albuteroL (DUO-NEB) 0.5-2.5 mg/3 ml nebulizer solution 3 mL, 3 mL, Inhalation, Q4H PRN, Moncho Joaquin MD lidocaine 1% (PF) (XYLOCAINE-MPF) 10 mg/mL (1 %) injection 1 mL, 1 mL, Injection, Once PRN, Cecilia Gonzales, YURIDIA melatonin Tab 5 mg, 5 mg, Oral, Nightly PRN, Dee Carnes, ENVIRONMENTAL EMERGENCIES PLANNER meloxicam (MOBIC) tablet 15 mg, 15 mg, Oral, Daily, Moncho Joaquin MD, 15 mg at 08/04/23 0920 mometasone-formoterol (DULERA) 200-5 mcg/actuation inhaler 2 puff, 2 puff, Inhalation, BID, Moncho Joaquin MD, 2 puff at 08/04/23 0922 ondansetron (ZOFRAN-ODT) disintegrating tablet 4 mg, 4 mg, Oral, Q6H PRN OR ondansetron (ZOFRAN) injection 4 mg, 4 mg, Intravenous, Q6H PRN, Moncho Joaquin MD oxyCODONE (ROXICODONE) immediate release tablet 10 mg, 10 mg, Oral, Q4H PRN, Moncho Joaquin MD, 10 mg at 08/04/23 1429 pantoprazole (PROTONIX) EC tablet 20 mg, 20 mg, Oral, Daily, Moncho Joaquin MD, 20 mg at 08/04/23 0920 predniSONE (DELTASONE) tablet 5 mg, 5 mg, Oral, Daily, Moncho Joaquin MD, 5 mg at 08/04/23 0920 Saline lock IV, , , Continuous AND sodium chloride (PF) (NS) flush 5 mL, 5 mL, Intravenous, PRN AND sodium chloride (PF) (NS) flush 5 mL, 5 mL, Intravenous, Q8H CASSIUS, 5 mL at 08/01/23 1400 AND sodium chloride 0.9% (NS), 0-150 mL/hr, Intravenous, PRN, Moncho Joaquin MD sulfamethoxazole-trimethoprim (BACTRIM DS,SEPTRA DS) 800-160 mg per tablet 1 tablet, 1 tablet, Oral, Q12H CASSIUS, Kinza Garrett MD, 1 tablet at 08/04/23 0920 PMH/PSH/SH/FH reviewed, no change : Review of Systems: All systems were reviewed no change: Medications Reviewed. Chart Reviewed. Exam Findings: HEENT: Atraumatic/Pupils equal & reactive Neck: Supple, no rigidity ENT: No oral candidiasis Chest: Lungs clear bilaterally, no wheezing, or rales CVS: Normal S1 & S2+, Abdomen: Obese, mild edema, normal symmetry, Soft/non-tender. Benign, BS+ Extremities: No Deformities, bilateral lower extremity edema, and right knee ulceration, and tenderness, right leg with ulceration. Patient on VAC dressing on the right leg ulceration. Skin: Intact & No Rashes, or excoriations Musculoskeletal: No joint swelling, non tender TRAIN PLANNER: Awake, and Ox3 Wound: Ulceration of the right leg noted, and edema, right knee with ulceration Right leg wound right knee wound Tavera Catheter: None IV Access: Yes I reviewed Medications. I reviewed Labs. CT Knee Right With Contrast Final Result 1. There is a 2.8 x 2.5 cm rim-enhancing fluid collection within the suprapatellar subcutaneous soft tissues, concerning for an abscess. No soft tissue air is seen. 2. Small right knee joint effusion with synovial thickening. This likely communicates with the aforementioned suspected abscess. Consider arthrocentesis to evaluate for septic arthritis, as clinically indicated. 3. Edema throughout the right lower extremity subcutaneous tissues, which could represent cellulitis. [facility]/[employer] Collaboration Network Workstation ID: [id number] Laboratory and Additional Data Reviewed: Laboratory 08/04/23 5:03 PM Microbiology 08/04/23 5:03 PM Radiology 08/04/23 5:03 PM Medications 08/04/23 5:03 PM Lab Results Component Value Date WBC 2.30 (L) 08/04/2023 HGB 9.4 (L) 08/04/2023 HCT 30.6 (L) 08/04/2023 MCV 69.9 (L) 08/04/2023 PLT 84 (L) 08/04/2023 Lab Results Component Value Date GLUCOSE 92 08/04/2023 CALCIUM 8.4 08/04/2023 NA 139 08/04/2023 K 4.3 08/04/2023 CL 107 08/04/2023 BUN 18 08/04/2023 CREATININE 0.60 08/04/2023 Problem List Items Addressed This Visit None Visit Diagnoses Wound cellulitis - Primary I have taken time to review patient's information and having discussions with appropriate care teams, I appreciate seeing your patient, will continue to follow with you, and adjust with more information. Medical Decision Making: Moderate This note is created with the assistance of a speech-recognition program. While intending to generate a document that actually reflects the content of the visit, the document can still have some errors including those of syntax and sound a- like substitutions which may escape proofreading. In such instances, actual meaning can be extrapolated by contextual derivation. Images from the original note were not included. Podiatry Inpatient progress note 08/04/2023 Quyen Franco, RODRIGUE [facility] Patient Name: Carmen Gilman. . Date of : 1965, 58 y.o.. Gender: male. Date of Consultation: 08/04/2023. Author: Quyen Franco Assessment: Bilateral lower extremity wounds Right knee abscess/wound Bilateral lower extremity lymphedema Diabetic peripheral neuropathy Plan: Patient was seen and evaluated. Discussed all clinical findings CRP normal, ESR normal. WBC 2.30. Hemoglobin A1c 4.7 Wound culture from right leg no growth (previously grew steno trophomonas maltophilia/xanthomas on leg swab and MSSA on surgical cultures). Right knee culture no growth so far, culture obtained several days after starting IV antibiotics due to patient's refusal previously. Infectious disease following No new imaging of lower legs available, no indication for updated imaging Right knee open wound concerning for underlying abscess. CT right knee with contrast showing a 2.8 x 2.5 cm fluid collection within the suprapatellar subcutaneous soft tissues concerning for an abscess. Small right knee joint effusion likely communicates with the aforementioned suspected abscess. Patient is refusing knee aspiration per orthopedic surgeon Dr. Dukes Wound clinic consulted for wound VAC application to R lower leg with black foam at 125 mmHg continuous pressure Left leg dressing: Cleanse ulcer with saline, place double layer Gavino directly onto wound bed cut to size. Cover with small piece of Adaptic, 4 x 4 gauze, Kerlix. Dressing change every other day Elevate legs as much as able. No weightbearing restrictions to either foot. Patient declined midline/PICC line placement and IV antibiotics on discharge Plan for split-thickness skin graft application to right lower extremity per Dr. Gonzales in OR 08/05. N.p.o. after midnight Subjective: Patient seen in his room, lying in bed trying to take a nap. He states he is very grateful for upcoming graft surgery tomorrow. Has no new pedal complaints. Physical Examination: BP 123/84 Pulse 83 Temp 98.8 F (37.1 C) (Oral) Resp 16 Ht 6' Wt 108.9 kg (240 lb) SpO2 96% BMI 32.55 kg/m General Appearance: Alert, cooperative, no distress, appears older than stated age. Podiatric Exam Vascular: DP and PT pulses are faintly palpable. Cap refill time brisk to distal digits. Neurological: Gross sensation intact. Protective sensation diminished. Dermatologic: Right lower leg wound VAC changed per wound clinic nursing, see image below. Left lower extremity distal knee with partial-thickness granular ulceration with intact periwound Musculoskeletal: Is able to wiggle digits. Compartments soft and compressible. No calf pain. Wound 05/18/23 Skin Tear Pre-tibial Left (Active) Reassessment Unchd 07/30/23 1300 Dressing Status Clean;Dry;Intact 07/30/23 1550 Dressing Changed Changed 07/30/23 1550 Wound Image 07/29/23 1319 Wound Length (cm) 1.5 cm 07/29/23 1319 Wound Width (cm) 1.3 cm 07/29/23 1319 Wound Depth (cm) 0.1 cm 07/29/23 1319 Wound 06/03/23 Surgical Wound Pre-tibial Right (Active) Reassessment Unchd 07/30/23 1300 Dressing Status Clean;Dry;Intact 07/30/23 1550 Dressing Changed Changed 07/30/23 1550 Wound Image 07/29/23 1315 Wound Length (cm) 16.5 cm 07/29/23 1315 Wound Width (cm) 8 cm 07/29/23 1315 Wound Depth (cm) 0.1 cm 07/29/23 1315 Wound 07/29/23 Knee Anterior;Right (Active) Reassessment Unchd 07/30/23 1300 Dressing Status Clean;Dry;Intact 07/30/23 1550 Dressing Changed Changed 07/30/23 1550 Wound Image 07/29/23 1316 Again, thank you for the opportunity to help care for your patient. Quyen Franco [facility] [place] Assessment and Plan Carmen Gilman is a 58 y.o. adult patient of Ani Worley CNP with history hypertension, hyperlipidemia, COPD, adrenal insufficiency on prednisone pills, opiate dependence on Suboxone, cirrhotic liver, A-fib, chronic lower extremity wound chronic venous stasis, right lateral leg full-thickness ulcer s/p hematoma evacuation in April 2023, chronic pain syndrome, with complex right suprapatellar joint effusion s/p right total knee replacement requiring aspiration by Dr. Dukest May, chronic right-sided heart failure with pulm hypertension, portal hypertension and esophageal varices, pancytopenia, presented to [facility] due to wounds in the lower extremity with drainage and pain. Patient had recent positive gross from the wound and blood consent of bacteremia admitted for IV antibiotic. Right lower extremity wounds History of bacteremia Chronic venous stasis Chronic right lateral leg full-thickness ulcer Right ankle and above the right knee IV antibiotic with Zosyn initially then switched to Keflex and Bactrim on 08/04 per ID recommendation Follow-up MRSA negative, discontinue vancomycin Follow-up blood cultures, wound culture, NGTD ESR, CRP WNL Podiatry on board status post wound VAC, plan for split thickness skin graft application tomorrow ID on board complex right suprapatellar joint effusion Possible suprapatellar subcutaneous abscess Possible septic right total knee replacement status post right total knee replacement required aspiration by Dr. Dukes in May culture showed no growth at that time Also presents with draining wound at that area CT scan of the right knee showed 2.8 x 2.5 cm fluid collection in the suprapatellar subcutaneous soft tissue concerning for an abscess Consult orthopedic Continue antibiotic as above Pain control PT OT recommendation up to 5 sessions per week patient is refusing knee aspiration, have a detailed discussion with the patient on 08/01 risks and benefits of knee aspiration. Patient understands all the risk and benefits and refuses to continue with knee aspiration. Pancytopenia On 08/04 hemoglobin 9.4, white blood cells 2.3, platelets 84 Order vitamin B12, folate and iron panel, LDH Consult oncology CBC next a.m. Chronic pain syndrome History of opioid dependency Previously on Suboxone not anymore Taking Percocet as needed Diabetes mellitus ruled out A1c 4.5 History of paroxysmal atrial fibrillation Is off of anticoagulation taking Cardizem CD 240 mg daily heart rate is controlled Patient denies any history of A-fib probably he is not aware of that Chronic adrenal insufficiency Is maintained on oral prednisone 5 mg daily Chronic obstructive pulmonary disease, he is in denial that he has COPD Stable without evidence of exacerbation Peripheral neuropathy Is maintained on gabapentin Discharge Planning Medically Stable for Discharge Date: 08/04 Patient requires continued hospitalization due to: IV antibiotic, podiatry evaluation, Discharge Location possible SNF Quality Measures DVT Prophylaxis: heparin subcutaneous Tavera Catheter: absent Code Status full code Primary Contact Information Subjective Patient feeling okay, denies any fever or chills shortness of breath, pain is bearable Vital signs stable Labs reviewed hemoglobin stable at 9.4, white blood cells 2.3, platelets 54 Objective BP (!) 157/90 Pulse 96 Temp 97.8 F (36.6 C) (Oral) Resp 16 Ht 6' Wt 108.9 kg (240 lb) SpO2 96% BMI 32.55 kg/m Physical Examination General Appearance: somnolent; chronically ill appearing; in no acute distress HEENT: Head- normocephalic; Eyes- EOMI, sclera anicteric; Throat- mucous membranes moist Cardiovascular: regular rate and rhythm; normal S1, S2; no murmurs, rubs, clicks or gallops; peripheral edema 1+ Respiratory: lungs clear to auscultation; without wheezes, rales or rhonchi; on room air Abdomen: soft, non-tender, non-distended Neurological: oriented x 3; normal speech; no focal findings or movement disorder noted Musculoskeletal: no significant deformity or tenderness to palpation Skin: Erythema in the bilateral lower extremity bluish discoloration of the right lower extremity, clean and dry dressing noted. There is an subcutaneous abscess on the right lower extremity superior to the right knee open and oozing some serous fluid. Psych: normal mood and affect Images from the original note were not included. Patient Name: Carmen Gilman Admit Date: [id number] MR #: [id number] : 1965 Physicians: Delany, Ani M, ENVIRONMENTAL EMERGENCIES PLANNER (Family); No ref. provider found (Referring) Assessment: Patient with 1. Right lower extremity nonhealing wound 2. Right Knee abscess, with suspicion for prosthetic right knee infection. 3. Chronic hepatitis C,(treated at [facility], and negative hepatitis C RNA.) 4. Bilateral lower extremity edema. Plan. Continue patient on current therapy Patient currently on IV Zosyn (patient refusing any central line or IV line) Will start patient on p.o. Keflex, and Bactrim Status post DC IV vancomycin if negative MRSA. Reviewed right knee cultures, with no growth. I reviewed blood cultures with no growth I reviewed wound culture from the lower right leg with polymicrobial Follow-up ESR, C-reactive protein 5.[address] scan of the right knee, with 2.8 x 2.5 cm ream and seen fluid collection and the suprapatellar area, concerning for abscess, as the right small joint effusion with synovial thickening noted. Podiatry evaluation recommended. Continue dressing as per consulting group analyst recommendation. We will continue to follow with you. I reviewed deep right knee wound culture with no growth Okay with midline or PICC line insertion. On discharge we will continue patient on IV Zosyn. Addendum. I did discuss with patient on his request for p.o. antibiotics. With less chances of right knee improvement, and possible history of losing leg. Subjective: Patient had no new symptoms today. No fever or chills. Tmax of 98.5. Saturating 97%. Still with right knee pain.Patient not allowing for any central line placement. Wants to be sent home on p.o. antibiotics. Exam: PACU Vitals 08/03/23 1017 BP: Pulse: Resp: 18 Temp: SpO2: Allergies: Patient has no known allergies. Current Facility-Administered Medications: albuterol inhaler 2 puff, 2 puff, Inhalation, Q6H PRN, Moncho Joaquin MD, 2 puff at 07/31/23 0932 aspirin EC tablet 81 mg, 81 mg, Oral, Daily, Moncho Joaquin MD, 81 mg at 08/03/23 0848 diazePAM (VALIUM) tablet 5 mg, 5 mg, Oral, Daily PRN, Moncho Joaquin MD diltiazem (CARDIZEM CD) 24 hr capsule 240 mg, 240 mg, Oral, Daily, Moncho Joaquin MD, 240 mg at 08/03/23 0848 gabapentin (NEURONTIN) capsule 400 mg, 400 mg, Oral, 4x daily, Moncho Joaquin MD, 400 mg at 08/03/23 0847 heparin (porcine) injection 5,000 Units, 5,000 Units, Subcutaneous, Q8H CASSIUS, Moncho Joaquin MD, 5,000 Units at 07/31/23 0454 insulin lispro (AdmeLOG,HumaLOG) injection 0-15 Units, 0-15 Units, Subcutaneous, at bedtime, Moncho Joaquin MD insulin lispro (AdmeLOG,HumaLOG) injection 0-30 Units, 0-30 Units, Subcutaneous, TID AC, Moncho Joaquin MD, 0 Units at 08/03/23 1130 ipratropium-albuteroL (DUO-NEB) 0.5-2.5 mg/3 ml nebulizer solution 3 mL, 3 mL, Inhalation, Q4H PRN, Moncho Joaquin MD lidocaine 1% (PF) (XYLOCAINE-MPF) 10 mg/mL (1 %) injection 1 mL, 1 mL, Injection, Once PRN, Cecilia Gonzales DPM meloxicam (MOBIC) tablet 15 mg, 15 mg, Oral, Daily, Moncho Joaquin MD, 15 mg at 08/03/23 0848 mometasone-formoterol (DULERA) 200-5 mcg/actuation inhaler 2 puff, 2 puff, Inhalation, BID, Moncho Joaquin MD, 2 puff at 08/02/23 0959 ondansetron (ZOFRAN-ODT) disintegrating tablet 4 mg, 4 mg, Oral, Q6H PRN OR ondansetron (ZOFRAN) injection 4 mg, 4 mg, Intravenous, Q6H PRN, Moncho Joaquin MD oxyCODONE (ROXICODONE) immediate release tablet 10 mg, 10 mg, Oral, Q4H PRN, Moncho Joaquin MD, 10 mg at 08/03/23 1017 pantoprazole (PROTONIX) EC tablet 20 mg, 20 mg, Oral, Daily, Moncho Joaquin MD, 20 mg at 08/03/23 0848 piperacillin-tazobactam (ZOSYN) IVPB 3.375 g (premix), 3.375 g, Intravenous, Q8H, Moncho Joaquin MD, Held at 08/03/23 0000 predniSONE (DELTASONE) tablet 5 mg, 5 mg, Oral, Daily, Moncho Joaquin MD, 5 mg at 08/03/23 0847 Saline lock IV, , , Continuous AND sodium chloride (PF) (NS) flush 5 mL, 5 mL, Intravenous, PRN AND sodium chloride (PF) (NS) flush 5 mL, 5 mL, Intravenous, Q8H CASSIUS, 5 mL at 08/01/23 1400 AND sodium chloride 0.9% (NS), 0-150 mL/hr, Intravenous, PRN, Moncho Joaquin MD PMH/PSH/SH/ reviewed, no change : Review of Systems: All systems were reviewed no change: Medications Reviewed. Chart Reviewed. Exam Findings: HEENT: Atraumatic/Pupils equal & reactive Neck: Supple, no rigidity ENT: No oral candidiasis Chest: Lungs clear bilaterally, no wheezing, or rales CVS: Normal S1 & S2+, Abdomen: Obese, mild edema, normal symmetry, Soft/non-tender. Benign, BS+ Extremities: No Deformities, bilateral lower extremity edema, and right knee ulceration, and tenderness, right leg with ulceration. Patient on VAC dressing on the right leg ulceration. Skin: Intact & No Rashes, or excoriations Musculoskeletal: No joint swelling, non tender TRAIN PLANNER: Awake, and Ox3 Wound: Ulceration of the right leg noted, and edema, right knee with ulceration Right leg wound right knee wound Tavera Catheter: None IV Access: Yes I reviewed Medications. I reviewed Labs. CT Knee Right With Contrast Final Result 1. There is a 2.8 x 2.5 cm rim-enhancing fluid collection within the suprapatellar subcutaneous soft tissues, concerning for an abscess. No soft tissue air is seen. 2. Small right knee joint effusion with synovial thickening. This likely communicates with the aforementioned suspected abscess. Consider arthrocentesis to evaluate for septic arthritis, as clinically indicated. 3. Edema throughout the right lower extremity subcutaneous tissues, which could represent cellulitis. [facility]/[employer] Collaboration Network Workstation ID: [id number] Laboratory and Additional Data Reviewed: Laboratory 08/03/23 2:13 PM Microbiology 08/03/23 2:13 PM Radiology 08/03/23 2:13 PM Medications 08/03/23 2:13 PM Lab Results Component Value Date WBC 3.31 (L) 08/03/2023 HGB 10.4 (L) 08/03/2023 HCT 33.4 (L) 08/03/2023 MCV 70.2 (L) 08/03/2023 PLT 104 (L) 08/03/2023 Lab Results Component Value Date GLUCOSE 97 08/03/2023 CALCIUM 8.3 (L) 08/03/2023 NA 136 08/03/2023 K 4.1 08/03/2023 CL 105 08/03/2023 BUN 17 08/03/2023 CREATININE 0.60 08/03/2023 Problem List Items Addressed This Visit None Visit Diagnoses Wound cellulitis - Primary I have taken time to review patient's information and having discussions with appropriate care teams, I appreciate seeing your patient, will continue to follow with you, and adjust with more information. Medical Decision Making: Moderate This note is created with the assistance of a speech-recognition program. While intending to generate a document that actually reflects the content of the visit, the document can still have some errors including those of syntax and sound a- like substitutions which may escape proofreading. In such instances, actual meaning can be extrapolated by contextual derivation. Physical Therapy PHYSICAL THERAPY TREATMENT NOTE Skilled Therapy Needs After Discharge Anticipate Resolution of Current Assessment Limitations Including: Pain, Mechanical Barriers, Social Support Are Skilled Therapy Services Needed After Discharge: Yes Intensity of Skilled Therapy: Up to 5 days per week DME Recommendation: Wheeled Walker, To be determined at next level of care (owns) DME Rationale: Patient's condition creates an increased risk of safety hazard without recommended equipment, Equipment required to maintain weight bearing status per physician orders Rehab Potential: Good, For goals Outcomes Measures Prior Function - Basic Mobility Raw Score: 24 Points Prior Function - Basic Mobility % Impaired: 0% AM-PAC Basic Mobility Raw Score: 17 Points AM-PAC Basic Mobility % Impaired: 43.83% Activity Tolerance Therapy Precautions Orthotic Devices: No Weight Bearing Status: X RLE: Wt bearing as tolerated General Rehab Precautions: Fall risk ("WBAT but minimal. Emphasize elevation of BLEs" per podiatry. Wound vac) Balance Bed Mobility Transfers Sit to Stand: Stand by assist Bridge Construction Inspector: wheeled walker, BUE Skilled Intervention Provided: verbal cues, patient education For: efficient movement Resulting in: improved awareness Gait/Locomotion Gait Assistance: Stand by assist, Contact guard assist Assistive Device: wheeled walker Distance: 40 Feet Pattern: step through, forward flexed, decreased veronica (steps per minute), antalgic Environment/Terrain: open/community environment, multiple distractions Skilled Intervention Provided: verbal cues, patient education For: efficient movement Resulting in: improved efficiency Exercise Additional Treatment Details Pt. SOB post ambulation, SPO2 measuring at 94% once sitting. Pt. in chair post PT all needs in reach, no alarm pre PT. Home Living Obtained Home Living and PLOF info from: Patient Unable to obtain Home Living and PLOF info on initial eval: Patient is a questionable historian Type of Home: Homeless Mobility Equipment: Wheeled walker, Wheelchair - manual Additional Objective Details - Home Living: Pt becoming irritable with attempts at obtaining home set up information Prior Level of Function Level of Boutte - Transfers/Ambulation/Mobility: Independent with functional transfers, Independent with household ambulation Level of Boutte - ADLs: Independent For complete objective data, detailed plan of care and patient education refer to: PT Evaluation flowsheet, PT Evaluation and Treatment flowsheet, PT Treatment flowsheet, patient Plan of Care, Plan of Care progress note, and Patient Education. This note stands as the current Discharge Summary upon patient discharge from the hospital or completion of Physical Therapy Plan of Care. [facility] [place] Assessment and Plan Carmen Gilman is a 58 y.o. adult patient of Ani Worley CNP with history hypertension, hyperlipidemia, COPD, adrenal insufficiency on prednisone pills, opiate dependence on Suboxone, cirrhotic liver, A-fib, chronic lower extremity wound chronic venous stasis, right lateral leg full-thickness ulcer s/p hematoma evacuation in April 2023, chronic pain syndrome, with complex right suprapatellar joint effusion s/p right total knee replacement requiring aspiration by Dr. Dukest May, chronic right-sided heart failure with pulm hypertension, portal hypertension and esophageal varices, pancytopenia, presented to [facility] due to wounds in the lower extremity with drainage and pain. Patient had recent positive gross from the wound and blood consent of bacteremia admitted for IV antibiotic. Right lower extremity wounds History of bacteremia Chronic venous stasis Chronic right lateral leg full-thickness ulcer Right ankle and above the right knee Continue IV antibiotic with Zosyn Follow-up MRSA negative, discontinue vancomycin Follow-up blood cultures, wound culture, NGTD ESR, CRP WNL Podiatry on board ID on board Patient will need 4 weeks of IV antibiotic, midline ordered but the patient refused complex right suprapatellar joint effusion Possible suprapatellar subcutaneous abscess Possible septic right total knee replacement status post right total knee replacement required aspiration by Dr. Dukes in May culture showed no growth at that time Also presents with draining wound at that area CT scan of the right knee showed 2.8 x 2.5 cm fluid collection in the suprapatellar subcutaneous soft tissue concerning for an abscess Consult orthopedic Continue antibiotic as above Pain control PT OT patient is refusing knee aspiration, have a detailed discussion with the patient on 08/01 risks and benefits of knee aspiration. Patient understands all the risk and benefits and refuses to continue with knee aspiration. Chronic pain syndrome History of opioid dependency Previously on Suboxone not anymore Taking Percocet as needed Diabetes mellitus ruled out A1c 4.5 History of paroxysmal atrial fibrillation Is off of anticoagulation taking Cardizem CD 240 mg daily heart rate is controlled Patient denies any history of A-fib probably he is not aware of that Chronic adrenal insufficiency Is maintained on oral prednisone 5 mg daily Chronic obstructive pulmonary disease, he is in denial that he has COPD Stable without evidence of exacerbation Peripheral neuropathy Is maintained on gabapentin Discharge Planning Medically Stable for Discharge Date: 08/04 Patient requires continued hospitalization due to: IV antibiotic, podiatry evaluation, Discharge Location possible SNF Quality Measures DVT Prophylaxis: heparin subcutaneous Tavera Catheter: absent Code Status full code Primary Contact Information Subjective No acute events overnight, pain is bearable, patient asked questions why hospital medicine need to see him he is only here for his infection, I told him that ID does not admit the patient directly under his service and he does have chronic medical issue need to be addressed, patient sounded in denial, explained to him chronic medical issue that he has Vital signs stable and labs reviewed Objective BP (!) 143/80 (BP Location: Left arm, Patient Position: Lying) Pulse 87 Temp 97.6 F (36.4 C) (Oral) Resp 18 Ht 6' Wt 108.9 kg (240 lb) SpO2 97% BMI 32.55 kg/m Physical Examination General Appearance: somnolent; chronically ill appearing; in no acute distress HEENT: Head- normocephalic; Eyes- EOMI, sclera anicteric; Throat- mucous membranes moist Cardiovascular: regular rate and rhythm; normal S1, S2; no murmurs, rubs, clicks or gallops; peripheral edema 1+ Respiratory: lungs clear to auscultation; without wheezes, rales or rhonchi; on room air Abdomen: soft, non-tender, non-distended Neurological: oriented x 3; normal speech; no focal findings or movement disorder noted Musculoskeletal: no significant deformity or tenderness to palpation Skin: Erythema in the bilateral lower extremity bluish discoloration of the right lower extremity, clean and dry dressing noted. There is an subcutaneous abscess on the right lower extremity superior to the right knee open and oozing some serous fluid. Psych: normal mood and affect Care Management Progress Note Date: 08/03/2023 Time: 12:21 PM Patient Name: Carmen Gilman Date of : 1965 Discharge Plan: Discharging Transportation Plan: Discharge Plan Status: This RN CM to room and pt states plan is back to [facility] at discharge. Pt does state concerns with COVID at [facility]. Pt encouraged to let them place line for IV antibx. Wound vac still in place. CM to follow. Pt seen today to change wound vac to right lower leg. Pt resting in bed, wound vac removed and wound washed. Pt tolerated well. One piece of black foam placed on wound bed, wound vac is running at 125MM/Hg. Wound care will wound on08/05/23 to redress wound vac. Images from the original note were not included. Podiatry Inpatient progress note 08/03/2023 Quyen Franco, [facility] Patient Name: Carmen Gilman. . Date of : 1965, 58 y.o.. Gender: male. Date of Consultation: 08/03/2023. Author: Quyen Franco Assessment: Bilateral lower extremity wounds Right knee abscess wound Bilateral lower extremity lymphedema Diabetic peripheral neuropathy Plan: Patient was seen and evaluated. Discussed all clinical findings CRP normal, ESR normal. WBC 3.31. Hemoglobin A1c 4.7 Wound culture from right leg no growth (previously grew steno trophomonas maltophilia/xanthomas on leg swab and MSSA on surgical cultures). Right knee culture no growth so far, culture obtained several days after starting IV antibiotics due to patient's refusal previously. Infectious disease following No new imaging of lower legs available, no indication for updated imaging Right knee open wound concerning for underlying abscess. CT right knee with contrast showing a 2.8 x 2.5 cm fluid collection within the suprapatellar subcutaneous soft tissues concerning for an abscess. Patient is refusing knee aspiration per orthopedic surgeon Dr. Dukes Wound clinic consulted for wound VAC application to R lower leg with black foam at 125 mmHg continuous pressure Left leg dressing: Cleanse ulcer with saline, place double layer Gavino directly onto wound bed cut to size. Cover with small piece of Adaptic, 4 x 4 gauze, Kerlix. Dressing change every other day Elevate legs as much as able. No weightbearing restrictions to either foot. Patient declined midline/PICC line placement and IV antibiotics on discharge Plan for split-thickness skin graft application to right lower extremity per Dr. Gonzales in OR 08/05. N.p.o. after midnight Subjective: Patient seen in his room, lying in bed. Discussed medical management with him once again including our recommendations. Patient declined knee aspiration once again per orthopedics but is agreeable to podiatry plans. Physical Examination: BP (!) 143/80 (BP Location: Left arm, Patient Position: Lying) Pulse 87 Temp 97.6 F (36.4 C) (Oral) Resp 15 Ht 6' Wt 108.9 kg (240 lb) SpO2 97% BMI 32.55 kg/m General Appearance: Alert, cooperative, no distress, appears older than stated age. Podiatric Exam Vascular: DP and PT pulses are faintly palpable. Cap refill time brisk to distal digits. Neurological: Gross sensation intact. Protective sensation diminished. Dermatologic: Right lower leg wound VAC changed per wound clinic nursing, see image below. Left lower extremity distal knee with partial-thickness granular ulceration with intact periwound Musculoskeletal: Is able to wiggle digits. Compartments soft and compressible. No calf pain. Wound 05/18/23 Skin Tear Pre-tibial Left (Active) Reassessment Unchd 07/30/23 1300 Dressing Status Clean;Dry;Intact 07/30/23 1550 Dressing Changed Changed 07/30/23 1550 Wound Image 07/29/23 1319 Wound Length (cm) 1.5 cm 07/29/23 1319 Wound Width (cm) 1.3 cm 07/29/23 1319 Wound Depth (cm) 0.1 cm 07/29/23 1319 Wound 06/03/23 Surgical Wound Pre-tibial Right (Active) Reassessment Unchd 07/30/23 1300 Dressing Status Clean;Dry;Intact 07/30/23 1550 Dressing Changed Changed 07/30/23 1550 Wound Image 07/29/23 1315 Wound Length (cm) 16.5 cm 07/29/23 1315 Wound Width (cm) 8 cm 07/29/23 1315 Wound Depth (cm) 0.1 cm 07/29/23 1315 Wound 07/29/23 Knee Anterior;Right (Active) Reassessment Unchd 07/30/23 1300 Dressing Status Clean;Dry;Intact 07/30/23 1550 Dressing Changed Changed 07/30/23 1550 Wound Image 07/29/23 1316 Again, thank you for the opportunity to help care for your patient. Quyen Franco Spiritual Care Progress Note Completed by: Vinita Mitchell Person(s) Present During this Visit: Patient Time Spent in Direct Patient Care: 15 Narrative: This drapery rod assembler visited the pt., Carmen, while rounding. Visit was brief as Carmen was not feeling well. Introduced self and role. Carmen explained that he had a difficult day and wanted prayer. He led prayer with this drapery rod assembler and asked for healing. This drapery rod assembler provided empathetic listening and supportive presence. This drapery rod assembler provided information about Pastoral Care services and how to contact a drapery rod assembler. Pastoral Care team will remain available to support patient and family PRN. Images from the original note were not included. Podiatry Inpatient progress note 08/02/2023 Quyen Franco CNP [facility] Patient Name: Carmen Gilman. . Date of : 1965, 58 y.o.. Gender: male. Date of Consultation: 08/02/2023. Author: Quyen Franco Assessment: Bilateral lower extremity wounds Right knee abscess wound Bilateral lower extremity lymphedema Diabetic peripheral neuropathy Plan: Patient was seen and evaluated. Discussed all clinical findings CRP normal, ESR normal. WBC 2.63. Hemoglobin A1c 4.7 Wound culture from right leg no growth (previously grew steno trophomonas maltophilia/xanthomas on leg swab and MSSA on surgical cultures). Right knee culture no growth so far, culture obtained several days after starting IV antibiotics due to patient's refusal previously. Infectious disease following No new imaging of lower legs available, no indication for updated imaging Right knee open wound concerning for underlying abscess. CT right knee with contrast showing a 2.8 x 2.5 cm fluid collection within the suprapatellar subcutaneous soft tissues concerning for an abscess. Patient is refusing knee aspiration per orthopedic surgeon Dr. Dukes Wound clinic consulted for wound VAC application to R lower leg with black foam at 125 mmHg continuous pressure Left leg dressing: Cleanse ulcer with saline, place double layer Gavino directly onto wound bed cut to size. Cover with small piece of Adaptic, 4 x 4 gauze, Pilarx Elevate legs as much as able. No weightbearing restrictions to either foot. Tentatively planning skin grafting with Dr. Gonzales this admission to the right leg but only if knee aspiration is completed. Will continue talking to patient to allow orthopedic intervention, so grafting can take place. At this time, continue wound VAC therapy to the right leg. Patient declined midline/PICC line placement which jeopardizes long-term IV antibiotic therapy after discharge. Discussed with him to allow line placement as before so his right knee infection can be treated Had extensive discussion with patient today regarding his repeated refusals of medical management. Explained to patient he cannot expect to heal from any of his current conditions if he does not allow us to help him. Patient states he will think about these things. Subjective: Patient seen in his room, lying in bed. States he is doing all right. Discussed with patient need for knee aspiration in order to move forward with skin grafting to right lower extremity. Patient appears fearful about bedside knee aspiration, will discuss with Dr. Dukes for further recommendations. Physical Examination: BP 129/86 Pulse 75 Temp 97.6 F (36.4 C) (Axillary) Resp 16 Ht 6' Wt 108.9 kg (240 lb) SpO2 95% BMI 32.55 kg/m General Appearance: Alert, cooperative, no distress, appears older than stated age. Podiatric Exam Vascular: DP and PT pulses are faintly palpable. Cap refill time brisk to distal digits. Neurological: Gross sensation intact. Protective sensation diminished. Dermatologic: Right lower leg with intact wound VAC in place, this was not removed. Left lower extremity distal knee with partial-thickness granular ulceration with intact periwound Musculoskeletal: Is able to wiggle digits. Compartments soft and compressible. No calf pain. Wound 05/18/23 Skin Tear Pre-tibial Left (Active) Reassessment Unchd 07/30/23 1300 Dressing Status Clean;Dry;Intact 07/30/23 1550 Dressing Changed Changed 07/30/23 1550 Wound Image 07/29/23 1319 Wound Length (cm) 1.5 cm 07/29/23 1319 Wound Width (cm) 1.3 cm 07/29/23 1319 Wound Depth (cm) 0.1 cm 07/29/23 1319 Wound 06/03/23 Surgical Wound Pre-tibial Right (Active) Reassessment Unchd 07/30/23 1300 Dressing Status Clean;Dry;Intact 07/30/23 1550 Dressing Changed Changed 07/30/23 1550 Wound Image 07/29/23 1315 Wound Length (cm) 16.5 cm 07/29/23 1315 Wound Width (cm) 8 cm 07/29/23 1315 Wound Depth (cm) 0.1 cm 07/29/23 1315 Wound 07/29/23 Knee Anterior;Right (Active) Reassessment Unchd 07/30/23 1300 Dressing Status Clean;Dry;Intact 07/30/23 1550 Dressing Changed Changed 07/30/23 1550 Wound Image 07/29/23 1316 Again, thank you for the opportunity to help care for your patient. Quyen Franco Physical Therapy PHYSICAL THERAPY TREATMENT NOTE Skilled Therapy Needs After Discharge Anticipate Resolution of Current Assessment Limitations Including: Pain, Mechanical Barriers, Social Support Are Skilled Therapy Services Needed After Discharge: Yes Intensity of Skilled Therapy: Up to 5 days per week DME Recommendation: Wheeled Walker, To be determined at next level of care (owns) DME Rationale: Patient's condition creates an increased risk of safety hazard without recommended equipment, Equipment required to maintain weight bearing status per physician orders Rehab Potential: Good, For goals Outcomes Measures Prior Function - Basic Mobility Raw Score: 24 Points Prior Function - Basic Mobility % Impaired: 0% AM-PAC Basic Mobility Raw Score: 17 Points AM-PAC Basic Mobility % Impaired: 43.83% Activity Tolerance Pt with fair tolerance to activity with pain rated at 8 /10 post tx. Therapy Precautions Orthotic Devices: No Weight Bearing Status: X RLE: Wt bearing as tolerated General Rehab Precautions: Fall risk ("WBAT but minimal. Emphasize elevation of BLEs" per podiatry. Wound vac) Released to nursing: assist x 1 with ww Bed Mobility Supine to Sit: Modified independent Sit to Supine: Modified independent Skilled Intervention Provided: monitoring patient response with activity For: efficient movement, fall prevention Resulting in: improved performance, improved safety Transfers Sit to Stand: Stand by assist Bridge Construction Inspector: wheeled walker, BUE Skilled Intervention Provided: monitoring patient response with activity For: UE positioning Resulting in: improved performance Gait/Locomotion Gait Assistance: Stand by assist Assistive Device: wheeled walker Distance: 40 Feet Pattern: step through, R decreased step length, L decreased step length, over reliance on upper extremities, forward flexed Environment/Terrain: open/community environment, multiple distractions Skilled Intervention Provided: monitoring patient response with activity For: compensatory strategies, device management and safe use of device, efficient movement Resulting in: improved activity tolerance, improved performance Additional Treatment Details Home Living Obtained Home Living and PLOF info from: Patient Unable to obtain Home Living and PLOF info on initial eval: Patient is a questionable historian Type of Home: Homeless Mobility Equipment: Wheeled walker, Wheelchair - manual Additional Objective Details - Home Living: Pt becoming irritable with attempts at obtaining home set up information Prior Level of Function Level of Boutte - Transfers/Ambulation/Mobility: Independent with functional transfers, Independent with household ambulation Level of Boutte - ADLs: Independent For complete objective data, detailed plan of care and patient education refer to: PT Evaluation flowsheet, PT Evaluation and Treatment flowsheet, PT Treatment flowsheet, patient Plan of Care, Plan of Care progress note, and Patient Education. This note stands as the current Discharge Summary upon patient discharge from the hospital or completion of Physical Therapy Plan of Care. Images from the original note were not included. Patient Name: Carmen Gilman Admit Date: [id number] MR #: [id number] : 1965 Physicians: Ani Worley, ENVIRONMENTAL EMERGENCIES PLANNER (Family); No ref. provider found (Referring) Assessment: Patient with 1. Right lower extremity nonhealing wound 2. Right Knee abscess, with suspicion for prosthetic right knee infection. 3. Chronic hepatitis C,(treated at [facility], and negative hepatitis C RNA.) 4. Bilateral lower extremity edema. Plan. Continue patient on current therapy Patient currently on IV Zosyn Status post DC IV vancomycin if negative MRSA. Reviewed right knee cultures, with no growth. I reviewed blood cultures with no growth I reviewed wound culture from the lower right leg with polymicrobial Follow-up ESR, C-reactive protein 5.[address] scan of the right knee, with 2.8 x 2.5 cm ream and seen fluid collection and the suprapatellar area, concerning for abscess, as the right small joint effusion with synovial thickening noted. Podiatry evaluation recommended. I appreciate orthopedic evaluation, patient refusing aspiration of the right knee. Continue dressing as per consulting group analyst recommendation. We will continue to follow with you. I have encouraged patient to agree on right knee drainage. I have collected a fresh deep right knee wound culture today. Okay with midline or PICC line insertion. On discharge we will continue patient on IV Zosyn. Subjective: Patient lying quietly on the bed mattress, still complaining of pain in the right knee. With some mild drainage. Remains on VAC dressing on the right leg wound. Patient had a Tmax of 98.6. Saturating at 96% on room air. No fever or chills reported. Patient still does not want any debridement of the right knee. Exam: PACU Vitals 08/02/23 1057 BP: Pulse: Resp: 16 Temp: SpO2: Allergies: Patient has no known allergies. Current Facility-Administered Medications: albuterol inhaler 2 puff, 2 puff, Inhalation, Q6H PRN, Moncho Joaquin MD, 2 puff at 07/31/23 0932 aspirin EC tablet 81 mg, 81 mg, Oral, Daily, Moncho Joaquin MD, 81 mg at 08/02/23 0957 diazePAM (VALIUM) tablet 5 mg, 5 mg, Oral, Daily PRN, Moncho Joaquin MD diltiazem (CARDIZEM CD) 24 hr capsule 240 mg, 240 mg, Oral, Daily, Moncho Joaquin MD, 240 mg at 08/02/23 0957 gabapentin (NEURONTIN) capsule 400 mg, 400 mg, Oral, 4x daily, Moncho Joaquin MD, 400 mg at 08/02/23 0957 heparin (porcine) injection 5,000 Units, 5,000 Units, Subcutaneous, Q8H CASSIUS, Moncho Joaquin MD, 5,000 Units at 07/31/23 0454 insulin lispro (AdmeLOG,HumaLOG) injection 0-15 Units, 0-15 Units, Subcutaneous, at bedtime, Moncho Joaquin MD insulin lispro (AdmeLOG,HumaLOG) injection 0-30 Units, 0-30 Units, Subcutaneous, TID AC, Moncho Joaquin MD ipratropium-albuteroL (DUO-NEB) 0.5-2.5 mg/3 ml nebulizer solution 3 mL, 3 mL, Inhalation, Q4H PRN, Moncho Joaquin MD lidocaine 1% (PF) (XYLOCAINE-MPF) 10 mg/mL (1 %) injection 1 mL, 1 mL, Injection, Once PRN, Cecilia Gonzales DPM meloxicam (MOBIC) tablet 15 mg, 15 mg, Oral, Daily, Moncho Joaquin MD, 15 mg at 08/02/23 0957 mometasone-formoterol (DULERA) 200-5 mcg/actuation inhaler 2 puff, 2 puff, Inhalation, BID, Moncho Joaquin MD, 2 puff at 08/02/23 0959 ondansetron (ZOFRAN-ODT) disintegrating tablet 4 mg, 4 mg, Oral, Q6H PRN OR ondansetron (ZOFRAN) injection 4 mg, 4 mg, Intravenous, Q6H PRN, Moncho Joaquin MD oxyCODONE (ROXICODONE) immediate release tablet 10 mg, 10 mg, Oral, Q4H PRN, Moncho Joaquin MD, 10 mg at 08/02/23 0957 pantoprazole (PROTONIX) EC tablet 20 mg, 20 mg, Oral, Daily, Moncho Joaquin MD, 20 mg at 08/02/23 0957 piperacillin-tazobactam (ZOSYN) IVPB 3.375 g (premix), 3.375 g, Intravenous, Q8H, Moncho Joaquin MD, Last Rate: 12.5 mL/hr at 08/02/23 1310, Rate Verify at 08/02/23 1310 predniSONE (DELTASONE) tablet 5 mg, 5 mg, Oral, Daily, Moncho Joaquin MD, 5 mg at 08/02/23 0957 Saline lock IV, , , Continuous AND sodium chloride (PF) (NS) flush 5 mL, 5 mL, Intravenous, PRN AND sodium chloride (PF) (NS) flush 5 mL, 5 mL, Intravenous, Q8H CASSIUS, 5 mL at 08/01/23 1400 AND sodium chloride 0.9% (NS), 0-150 mL/hr, Intravenous, PRN, Moncho Joaquin MD PMH/PSH/SH/ reviewed, no change : Review of Systems: All systems were reviewed no change: Medications Reviewed. Chart Reviewed. Exam Findings: HEENT: Atraumatic/Pupils equal & reactive Neck: Supple, no rigidity ENT: No oral candidiasis Chest: Lungs clear bilaterally, no wheezing, or rales CVS: Normal S1 & S2+, Abdomen: Obese, mild edema, normal symmetry, Soft/non-tender. Benign, BS+ Extremities: No Deformities, bilateral lower extremity edema, and right knee ulceration, and tenderness, right leg with ulceration. Patient on VAC dressing on the right leg ulceration. Skin: Intact & No Rashes, or excoriations Musculoskeletal: No joint swelling, non tender TRAIN PLANNER: Awake, and Ox3 Wound: Ulceration of the right leg noted, and edema, right knee with ulceration Right leg wound right knee wound Tavera Catheter: None IV Access: Yes I reviewed Medications. I reviewed Labs. CT Knee Right With Contrast Final Result 1. There is a 2.8 x 2.5 cm rim-enhancing fluid collection within the suprapatellar subcutaneous soft tissues, concerning for an abscess. No soft tissue air is seen. 2. Small right knee joint effusion with synovial thickening. This likely communicates with the aforementioned suspected abscess. Consider arthrocentesis to evaluate for septic arthritis, as clinically indicated. 3. Edema throughout the right lower extremity subcutaneous tissues, which could represent cellulitis. [facility]/[employer] Collaboration [employer] Workstation ID: [id number] Laboratory and Additional Data Reviewed: Laboratory 08/02/23 1:19 PM Microbiology 08/02/23 1:19 PM Radiology 08/02/23 1:19 PM Medications 08/02/23 1:19 PM Lab Results Component Value Date WBC 2.63 (L) 08/02/2023 HGB 10.0 (L) 08/02/2023 HCT 31.4 (L) 08/02/2023 MCV 69.5 (L) 08/02/2023 PLT 92 (L) 08/02/2023 Lab Results Component Value Date GLUCOSE 92 08/02/2023 CALCIUM 8.5 08/02/2023 NA 137 08/02/2023 K 4.4 08/02/2023 CL 106 08/02/2023 BUN 17 08/02/2023 CREATININE 0.62 08/02/2023 Problem List Items Addressed This Visit None Visit Diagnoses Wound cellulitis - Primary I have taken time to review patient's information and having discussions with appropriate care teams, I appreciate seeing your patient, will continue to follow with you, and adjust with more information. Medical Decision Making: Moderate This note is created with the assistance of a speech-recognition program. While intending to generate a document that actually reflects the content of the visit, the document can still have some errors including those of syntax and sound a- like substitutions which may escape proofreading. In such instances, actual meaning can be extrapolated by contextual derivation. [facility] [place] Assessment and Plan Carmen Gilman is a 58 y.o. adult patient of Ani Worley CNP with history hypertension, hyperlipidemia, COPD, adrenal insufficiency on prednisone pills, opiate dependence on Suboxone, cirrhotic liver, A-fib, chronic lower extremity wound chronic venous stasis, right lateral leg full-thickness ulcer s/p hematoma evacuation in April 2023, chronic pain syndrome, with complex right suprapatellar joint effusion s/p right total knee replacement requiring aspiration by Dr. Amin May, chronic right-sided heart failure with pulm hypertension, portal hypertension and esophageal varices, pancytopenia, presented to [facility] due to wounds in the lower extremity with drainage and pain. Patient had recent positive gross from the wound and blood consent of bacteremia admitted for IV antibiotic. Right lower extremity wounds History of bacteremia Chronic venous stasis Chronic right lateral leg full-thickness ulcer Right ankle and above the right knee Continue to monitor vital signs as per protocol Continue IV antibiotic with Zosyn Follow-up MRSA negative, discontinue vancomycin Follow-up blood cultures, wound culture, NGTD ESR, CRP WNL Podiatry on board ID on board Patient will need 4 weeks of IV antibiotic, midline ordered but the patient refused complex right suprapatellar joint effusion Possible suprapatellar subcutaneous abscess Possible septic right total knee replacement status post right total knee replacement required aspiration by Dr. Dukes in May culture showed no growth at that time Also presents with draining wound at that area CT scan of the right knee showed 2.8 x 2.5 cm fluid collection in the suprapatellar subcutaneous soft tissue concerning for an abscess Consult orthopedic Continue antibiotic as above Pain control PT OT patient is refusing knee aspiration, have a detailed discussion with the patient on 08/01 risks and benefits of knee aspiration. Patient understands all the risk and benefits and refuses to continue with knee aspiration. Chronic pain syndrome History of opioid dependency Previously on Suboxone not anymore Taking Percocet as needed Diabetes mellitus Will monitor blood glucose and insulin sliding scale and place the patient on carb controlled diet History of atrial fibrillation Is off of anticoagulation taking Cardizem CD 240 mg daily heart rate is controlled Chronic adrenal insufficiency Is maintained on oral prednisone 5 mg daily Chronic obstructive pulmonary disease Stable without evidence of exacerbation Peripheral neuropathy Is maintained on gabapentin Discharge Planning Medically Stable for Discharge Date: 08/04 Patient requires continued hospitalization due to: IV antibiotic, podiatry evaluation, Discharge Location: TBD Quality Measures DVT Prophylaxis: heparin subcutaneous Tavera Catheter: absent Code Status full code Primary Contact Information Subjective Seen and examined today morning at bedside. No acute overnight events. Still complaining of lower extremity pain. Patient is not cooperative with the nurses and refused for midline or IV insertion for continuation of antibiotic today. Discussed with him the benefits of the antibiotics and the current treatment. Objective BP 127/81 Pulse 67 Temp 98 F (36.7 C) (Axillary) Resp 16 Ht 6' Wt 108.9 kg (240 lb) SpO2 96% BMI 32.55 kg/m Physical Examination General Appearance: somnolent; chronically ill appearing; in no acute distress HEENT: Head- normocephalic; Eyes- EOMI, sclera anicteric; Throat- mucous membranes moist Cardiovascular: regular rate and rhythm; normal S1, S2; no murmurs, rubs, clicks or gallops; peripheral edema 1+ Respiratory: lungs clear to auscultation; without wheezes, rales or rhonchi; on room air Abdomen: soft, non-tender, non-distended Neurological: oriented x 3; normal speech; no focal findings or movement disorder noted Musculoskeletal: no significant deformity or tenderness to palpation Skin: Erythema in the bilateral lower extremity bluish discoloration of the right lower extremity, clean and dry dressing noted. There is an subcutaneous abscess on the right lower extremity superior to the right knee open and oozing some serous fluid. Psych: normal mood and affect Images from the original note were not included. Patient Name: Carmen Gilman Admit Date: [id number] MR #: [id number] : 1965 Physicians: Ani Worley, RODRIGUE (Family); No ref. provider found (Referring) Assessment: Patient with 1. Right lower extremity nonhealing wound 2. Right Knee abscess, with suspicion for prosthetic right knee infection. 3. Chronic hepatitis C,(treated at [facility], and negative hepatitis C RNA.) 4. Bilateral lower extremity edema. Plan. Continue patient on current therapy Patient currently on IV Zosyn Status post DC IV vancomycin if negative MRSA. Reviewed right knee cultures, with no growth. I reviewed blood cultures with no growth I reviewed wound culture from the lower right leg with polymicrobial Follow-up ESR, C-reactive protein 5.[address] scan of the right knee, with 2.8 x 2.5 cm ream and seen fluid collection and the suprapatellar area, concerning for abscess, as the right small joint effusion with synovial thickening noted. Podiatry evaluation recommended. I appreciate orthopedic evaluation, patient refusing aspiration of the right knee. Continue dressing as per consulting group analyst recommendation. We will continue to follow with you. I have encouraged patient to agree on right knee drainage. Subjective: Patient having wound dressing at this time, scheduling to be started on VAC dressing. No new symptoms apart from pain in the lower extremity and knee. His knee still with drainage. Tmax of 99.2. Saturating at 95% on room air. Patient refusing to orthopedic I&D on the right knee. Exam: PACU Vitals 08/01/23 1052 BP: Pulse: Resp: 16 Temp: SpO2: Allergies: Patient has no known allergies. Current Facility-Administered Medications: albuterol inhaler 2 puff, 2 puff, Inhalation, Q6H PRN, Moncho Joaquin MD, 2 puff at 07/31/23 0932 aspirin EC tablet 81 mg, 81 mg, Oral, Daily, Moncho Joaquin MD, 81 mg at 08/01/23 0945 diazePAM (VALIUM) tablet 5 mg, 5 mg, Oral, Daily PRN, Moncho Joaquin MD diltiazem (CARDIZEM CD) 24 hr capsule 240 mg, 240 mg, Oral, Daily, Moncho Joaquin MD, 240 mg at 08/01/23 0945 gabapentin (NEURONTIN) capsule 400 mg, 400 mg, Oral, 4x daily, Moncho Joaquin MD, 400 mg at 08/01/23 0945 heparin (porcine) injection 5,000 Units, 5,000 Units, Subcutaneous, Q8H CASSIUS, Moncho Joaquin MD, 5,000 Units at 07/31/23 0454 insulin lispro (AdmeLOG,HumaLOG) injection 0-15 Units, 0-15 Units, Subcutaneous, at bedtime, Moncho Joaquin MD insulin lispro (AdmeLOG,HumaLOG) injection 0-30 Units, 0-30 Units, Subcutaneous, TID AC, Moncho Joaquin MD ipratropium-albuteroL (DUO-NEB) 0.5-2.5 mg/3 ml nebulizer solution 3 mL, 3 mL, Inhalation, Q4H PRN, Moncho Joaquin MD lidocaine 1% (PF) (XYLOCAINE-MPF) 10 mg/mL (1 %) injection 1 mL, 1 mL, Injection, Once PRN, Cecilia Gonzales DPM meloxicam (MOBIC) tablet 15 mg, 15 mg, Oral, Daily, Moncho Joaquin MD, 15 mg at 08/01/23 0945 mometasone-formoterol (DULERA) 200-5 mcg/actuation inhaler 2 puff, 2 puff, Inhalation, BID, Moncho Joaquin MD, 2 puff at 08/01/23 0945 ondansetron (ZOFRAN-ODT) disintegrating tablet 4 mg, 4 mg, Oral, Q6H PRN OR ondansetron (ZOFRAN) injection 4 mg, 4 mg, Intravenous, Q6H PRN, Moncho Joaquin MD oxyCODONE (ROXICODONE) immediate release tablet 10 mg, 10 mg, Oral, Q4H PRN, Moncho Joaquin MD, 10 mg at 08/01/23 1052 pantoprazole (PROTONIX) EC tablet 20 mg, 20 mg, Oral, Daily, Moncho Joaquin MD, 20 mg at 08/01/23 0945 piperacillin-tazobactam (ZOSYN) IVPB 3.375 g (premix), 3.375 g, Intravenous, Q8H, Moncho Joaquin MD, Last Rate: 12.5 mL/hr at 08/01/23 0508, 3.375 g at 08/01/23 0508 predniSONE (DELTASONE) tablet 5 mg, 5 mg, Oral, Daily, Moncho Joaquin MD, 5 mg at 08/01/23 0945 Saline lock IV, , , Continuous AND sodium chloride (PF) (NS) flush 5 mL, 5 mL, Intravenous, PRN AND sodium chloride (PF) (NS) flush 5 mL, 5 mL, Intravenous, Q8H CASSIUS, 5 mL at 08/01/23 1400 AND sodium chloride 0.9% (NS), 0-150 mL/hr, Intravenous, PRN, Moncho Joaquin MD PMH/PSH/SH/ reviewed, no change : Review of Systems: All systems were reviewed no change: Medications Reviewed. Chart Reviewed. Exam Findings: HEENT: Atraumatic/Pupils equal & reactive Neck: Supple, no rigidity ENT: No oral candidiasis Chest: Lungs clear bilaterally, no wheezing, or rales CVS: Normal S1 & S2+, Abdomen: Obese, mild edema, normal symmetry, Soft/non-tender. Benign, BS+ Extremities: No Deformities, bilateral lower extremity edema, and right knee ulceration, and tenderness, right leg with ulceration. Patient scheduling on VAC dressing on the right leg ulceration. Skin: Intact & No Rashes, or excoriations Musculoskeletal: No joint swelling, non tender TRAIN PLANNER: Awake, and Ox3 Wound: Ulceration of the right leg noted, and edema, right knee with ulceration Right leg wound right knee wound Tavera Catheter: None IV Access: Yes I reviewed Medications. I reviewed Labs. CT Knee Right With Contrast Final Result 1. There is a 2.8 x 2.5 cm rim-enhancing fluid collection within the suprapatellar subcutaneous soft tissues, concerning for an abscess. No soft tissue air is seen. 2. Small right knee joint effusion with synovial thickening. This likely communicates with the aforementioned suspected abscess. Consider arthrocentesis to evaluate for septic arthritis, as clinically indicated. 3. Edema throughout the right lower extremity subcutaneous tissues, which could represent cellulitis. [facility]/[employer] Collaboration Network Workstation ID: [id number] Laboratory and Additional Data Reviewed: Laboratory 08/01/23 2:06 PM Microbiology 08/01/23 2:06 PM Radiology 08/01/23 2:06 PM Medications 08/01/23 2:06 PM Lab Results Component Value Date WBC 2.43 (L) 08/01/2023 HGB 9.6 (L) 08/01/2023 HCT 30.3 (L) 08/01/2023 MCV 70.1 (L) 08/01/2023 PLT 89 (L) 08/01/2023 Lab Results Component Value Date GLUCOSE 182 (H) 08/01/2023 CALCIUM 7.9 (L) 08/01/2023 NA 137 08/01/2023 K 3.9 08/01/2023 CL 105 08/01/2023 BUN 16 08/01/2023 CREATININE 0.70 08/01/2023 Problem List Items Addressed This Visit None Visit Diagnoses Wound cellulitis - Primary I have taken time to review patient's information and having discussions with appropriate care teams, I appreciate seeing your patient, will continue to follow with you, and adjust with more information. Medical Decision Making: Moderate This note is created with the assistance of a speech-recognition program. While intending to generate a document that actually reflects the content of the visit, the document can still have some errors including those of syntax and sound a- like substitutions which may escape proofreading. In such instances, actual meaning can be extrapolated by contextual derivation. Nutrition Care Initial Assessment Reason for visit: Nursing Referral for wound Nutrition Diagnosis: Increased nutrient needs related to need for wound healing as evidenced by pt has wounds with wound vac in place. Nutrition Intervention/Prescription: Continue Diet Initiate Oral Nutrition Supplement Diet: regular Oral nutrition supplement: Luke BID (mixed in applesauce), Boost Glucose Control once daily Nutrition Goals: PO intake > 75% most meals x next 6 days Nutrition Education: RDN encouraged calories, protein, Luke to help with wound healing. Assessment: Admit dx/Pertinent clinical information: Foot infection, on IV ABX. Wound vac placed today by wound care team. Per 07/31 podiatry note- - Right lower extremity full-thickness ulceration to the lateral right leg, pt refused debridement. Wound vac ordered. -Left lower extremity full-thickness ulceration to the medial left leg was debrided on Tuesday at the wound care center. No need for debridement today. -Right knee open wound concerning for underlying abscess. Patient is refusing an aspiration. Past Medical History: Diagnosis Date Anxiety Arrhythmia Arthritis Asthma COPD (chronic obstructive pulmonary disease) (HCC) Diabetes (HCC) Hypertension Opioid dependence (HCC) Secondary adrenal insufficiency (HCC) 04/30/2022 left AMA 04/30/22 without treatment Height: 6' Current weight: 108.9 kg (240 lb) BMI Body mass index is 32.55 kg/m . Edema (documented by nursing): +2 B/L LE Weight hx: Wt pretty steady per records. Wt Readings from Last 5 Encounters: 07/29/23 108.9 kg (240 lb) 07/01/23 110.2 kg (243 lb) 06/10/23 110.4 kg (243 lb 6.2 oz) 05/30/23 108.9 kg (240 lb) 05/24/23 104.4 kg (230 lb 3.2 oz) Current diet order: regular Recent intake: 75-100x3. Current intake Likely meets estimated needs. Patient/family comments: Per pt- good appetite, has been hungry in middle of the night and nursing has given snacks. Reports has some missing teeth on top and bottom, has partial top dentures. Pt states he is not diabetic and never has been. Agrees to Boost and Luke. Difficulty Chewing/Swallowing: pt denies Skin Integrity: wound- R knee, R calf, R surgical wound pre-tibial GI Function: WNL, date of LBM unknown Physical Appearance: no signs or symptoms of malnutrition Labs: Recent Labs 08/01/23 0904 NA 137 K 3.9 BICARB 27 CL 105 GLUCOSE 182* BUN 16 CREATININE 0.70 MG 1.8 PHOS 2.8 A1C 4.8 02/2023 POC glucose 88-194 Scheduled Meds: aspirin 81 mg Oral Daily diltiazem 240 mg Oral Daily gabapentin 400 mg Oral 4x daily heparin (porcine) 5,000 Units Subcutaneous Q8H CASSIUS lispro insulin 0-15 Units Subcutaneous at bedtime insulin lispro 0-30 Units Subcutaneous TID AC meloxicam 15 mg Oral Daily mometasone-formoterol 2 puff Inhalation BID pantoprazole 20 mg Oral Daily piperacillin-tazobactam (ZOSYN) extended infusion 3.375 g Intravenous Q8H predniSONE 5 mg Oral Daily sodium chloride (PF) 5 mL Intravenous Q8H CASSIUS Continuous Infusions: sodium chloride 0.9 % Needs- 2300-2400kcals (25-26kcals/kg). adjbw Protein- 109gms (1.2gms/kg). adjbw Will continue to follow. Jalyn Mercer RDN, LD Dietitian's Office [phone] [facility] [place] Assessment and Plan Carmen Gilman is a 58 y.o. adult patient of Ani Worley CNP with history hypertension, hyperlipidemia, COPD, adrenal insufficiency on prednisone pills, opiate dependence on Suboxone, cirrhotic liver, A-fib, chronic lower extremity wound chronic venous stasis, right lateral leg full-thickness ulcer s/p hematoma evacuation in April 2023, chronic pain syndrome, with complex right suprapatellar joint effusion s/p right total knee replacement requiring aspiration by Dr. Amin May, chronic right-sided heart failure with pulm hypertension, portal hypertension and esophageal varices, pancytopenia, presented to [facility] due to wounds in the lower extremity with drainage and pain. Patient had recent positive gross from the wound and blood consent of bacteremia admitted for IV antibiotic. Right lower extremity wounds History of bacteremia Chronic venous stasis Chronic right lateral leg full-thickness ulcer Right ankle and above the right knee Continue to monitor vital signs as per protocol Continue IV antibiotic with Zosyn Follow-up MRSA negative, discontinue vancomycin Follow-up blood cultures, wound culture, NGTD ESR, CRP WNL Podiatry on board ID on board complex right suprapatellar joint effusion Possible suprapatellar subcutaneous abscess Possible septic right total knee replacement status post right total knee replacement required aspiration by Dr. Dukes in May culture showed no growth at that time Also presents with draining wound at that area CT scan of the right knee showed 2.8 x 2.5 cm fluid collection in the suprapatellar subcutaneous soft tissue concerning for an abscess Consult orthopedic Continue antibiotic as above Pain control PT OT patient is refusing knee aspiration, have a detailed discussion with the patient on 08/01 risks and benefits of knee aspiration. Patient understands all the risk and benefits and refuses to continue with knee aspiration. Chronic pain syndrome History of opioid dependency Previously on Suboxone not anymore Taking Percocet as needed Diabetes mellitus Will monitor blood glucose and insulin sliding scale and place the patient on carb controlled diet History of atrial fibrillation Is off of anticoagulation taking Cardizem CD 240 mg daily heart rate is controlled Chronic adrenal insufficiency Is maintained on oral prednisone 5 mg daily Chronic obstructive pulmonary disease Stable without evidence of exacerbation Peripheral neuropathy Is maintained on gabapentin Discharge Planning Medically Stable for Discharge Date: 08/04 Patient requires continued hospitalization due to: IV antibiotic, podiatry evaluation, orthopedic evaluation, Discharge Location: TBD Quality Measures DVT Prophylaxis: heparin subcutaneous Tavera Catheter: absent Code Status full code Primary Contact Information Subjective Seen and examined today morning at bedside. Discussed with him in details the risk and benefit of knee aspiration and how it will affect the treatment plan. He is still refusing any aspiration and wants only to continue his antibiotic. He denies any new complaint. Objective BP (!) 144/84 Pulse 74 Temp 98.8 F (37.1 C) (Axillary) Resp 16 Ht 6' Wt 108.9 kg (240 lb) SpO2 97% BMI 32.55 kg/m Physical Examination General Appearance: somnolent; chronically ill appearing; in no acute distress HEENT: Head- normocephalic; Eyes- EOMI, sclera anicteric; Throat- mucous membranes moist Cardiovascular: regular rate and rhythm; normal S1, S2; no murmurs, rubs, clicks or gallops; peripheral edema 1+ Respiratory: lungs clear to auscultation; without wheezes, rales or rhonchi; on room air Abdomen: soft, non-tender, non-distended Neurological: oriented x 3; normal speech; no focal findings or movement disorder noted Musculoskeletal: no significant deformity or tenderness to palpation Skin: Erythema in the bilateral lower extremity bluish discoloration of the right lower extremity, clean and dry dressing noted. There is an subcutaneous abscess on the right lower extremity superior to the right knee open and oozing some serous fluid. Psych: normal mood and affect Images from the original note were not included. Podiatry Inpatient progress note 08/01/2023 Quyen Franco [facility] Patient Name: Carmen Gilman. . Date of : 1965, 58 y.o.. Gender: male. Date of Consultation: 08/01/2023. Author: Quyen Franco Assessment: Bilateral lower extremity wounds Right knee abscess wound Bilateral lower extremity lymphedema Diabetic peripheral neuropathy Plan: Patient was seen and evaluated. Discussed all clinical findings CRP normal, ESR normal. WBC 2.43. Hemoglobin A1c 4.7 Wound culture from right leg no growth (previously grew steno trophomonas maltophilia/xanthomas on leg swab and MSSA on surgical cultures). So far patient has refused R knee culture. Infectious disease following No new imaging of lower legs available, no indication for updated imaging Right knee open wound concerning for underlying abscess. CT right knee with contrast showing a 2.8 x 2.5 cm fluid collection within the suprapatellar subcutaneous soft tissues concerning for an abscess. Patient is refusing knee aspiration per orthopedic surgeon Dr. Dukes Wound clinic consulted for wound VAC application to R lower leg with black foam at 125 mmHg continuous pressure Gavino and dry dressing to L leg every other day Elevate legs as much as able. No weightbearing restrictions to either foot. Tentatively planning skin grafting with Dr. Gonzales this admission to the right leg but only if knee aspiration is completed. Will continue talking to patient to allow orthopedic intervention, so grafting can take place. At this time, continue wound VAC therapy to the right leg. Subjective: Patient seen in his room, lying in bed. More alert today. He is agreeable to podiatry management of wounds of legs but once again refused knee aspiration per orthopedic. Thinks the infection will "drain out on its own" from proximal knee wounds. No new pedal complaints. Physical Examination: BP (!) 144/84 Pulse 74 Temp 98.8 F (37.1 C) (Axillary) Resp 16 Ht 6' Wt 108.9 kg (240 lb) SpO2 97% BMI 32.55 kg/m General Appearance: Alert, cooperative, no distress, appears older than stated age. Podiatric Exam Vascular: DP and PT pulses are faintly palpable. Cap refill time brisk to distal digits. Neurological: Gross sensation intact. Protective sensation diminished. Dermatologic: See images below. Musculoskeletal: Is able to wiggle digits. Compartments soft and compressible. No calf pain. Wound 05/18/23 Skin Tear Pre-tibial Left (Active) Reassessment Unchd 07/30/23 1300 Dressing Status Clean;Dry;Intact 07/30/23 155 Dressing Changed Changed 07/30/23 155 Wound Image 07/29/23 1319 Wound Length (cm) 1.5 cm 07/29/23 1319 Wound Width (cm) 1.3 cm 07/29/23 1319 Wound Depth (cm) 0.1 cm 07/29/23 1319 Wound 06/03/23 Surgical Wound Pre-tibial Right (Active) Reassessment Unchd 07/30/23 1300 Dressing Status Clean;Dry;Intact 07/30/23 1550 Dressing Changed Changed 07/30/23 1550 Wound Image 07/29/23 1315 Wound Length (cm) 16.5 cm 07/29/23 1315 Wound Width (cm) 8 cm 07/29/23 1315 Wound Depth (cm) 0.1 cm 07/29/23 1315 Wound 07/29/23 Knee Anterior;Right (Active) Reassessment Unchd 07/30/23 1300 Dressing Status Clean;Dry;Intact 07/30/23 1550 Dressing Changed Changed 07/30/23 1550 Wound Image 07/29/23 1316 Again, thank you for the opportunity to help care for your patient. Quyen Franco Images from the original note were not included. Podiatry Inpatient progress note 07/31/2023 Cecilia Gonzales DPM [facility] Patient Name: Carmen Gilman. . Date of : 1965, 58 y.o.. Gender: male. Date of Consultation: 07/31/2023. Author: Cecilia Gonzales Assessment: Bilateral lower extremity wounds Right knee abscess wound Bilateral lower extremity lymphedema Diabetes peripheral neuropathy Plan: Patient was seen and evaluated. Discussed all clinical findings Patient has several wounds: 1. Right lower extremity full-thickness ulceration to the lateral right leg with serous drainage and fibrogranular wound bed. This also requires excisional debridement. Although I had planned to debride this wound today, patient refused. I will order application of negative pressure wound therapy to the right leg ulceration site to be performed by wound care nursing. \\ Right leg wound culture results show no growth to date. Blood cultures show no growth to date. 2. Left lower extremity full-thickness ulceration to the medial left leg was debrided on Tuesday at the wound care center. No need for debridement today.Dressing will be changed tomorrow and to apply Gavino and dry sterile dressing. 3. Right knee open wound concerning for underlying abscess. Reviewed CT of the right knee with contrast showing a 2.8 x 2.5 cm fluid collection within the suprapatellar subcutaneous soft tissues concerning for an abscess. Patient is refusing an aspiration. Right knee wound management per pediatrics and primary care team. Continue IV antibiotics per ID recommendation. We will continue to follow closely. Cecilia Gonzales DPM, MS Podiatric Physician & Surgeon Subjective: Patient is very drowsy laying in bed. Admits to pain to the right leg wounds. Does not wish to proceed with any surgical management. Physical Examination: BP (!) 106/52 Pulse 65 Temp 97.6 F (36.4 C) (Oral) Resp 16 Ht 6' Wt 108.9 kg (240 lb) SpO2 92% BMI 32.55 kg/m General Appearance: Alert, cooperative, no distress, appears stated age. Podiatric Exam Vascular: DP and PT pulses are faintly palpable. Cap refill time brisk to distal digits. Neurological: Gross sensation intact. Protective sensation diminished. Dermatologic: See images below. Musculoskeletal: Is able to wiggle digits. Compartments soft and compressible. No calf pain. Wound 05/18/23 Skin Tear Pre-tibial Left (Active) Reassessment Unchd 07/30/23 1300 Dressing Status Clean;Dry;Intact 07/30/23 1550 Dressing Changed Changed 07/30/23 1550 Wound Image 07/29/23 1319 Wound Length (cm) 1.5 cm 07/29/23 1319 Wound Width (cm) 1.3 cm 07/29/23 1319 Wound Depth (cm) 0.1 cm 07/29/23 1319 Wound 06/03/23 Surgical Wound Pre-tibial Right (Active) Reassessment Unchd 07/30/23 1300 Dressing Status Clean;Dry;Intact 07/30/23 1550 Dressing Changed Changed 07/30/23 1550 Wound Image 07/29/23 1315 Wound Length (cm) 16.5 cm 07/29/23 1315 Wound Width (cm) 8 cm 07/29/23 1315 Wound Depth (cm) 0.1 cm 07/29/23 1315 Wound 07/29/23 Knee Anterior;Right (Active) Reassessment Unchd 07/30/23 1300 Dressing Status Clean;Dry;Intact 07/30/23 1550 Dressing Changed Changed 07/30/23 1550 Wound Image 07/29/23 1316 Again, thank you for the opportunity to help care for your patient. Cecilia Gonzales Images from the original note were not included. Patient Name: Carmen Gilman Admit Date: [id number] MR #: [id number] : 1965 Physicians: Ani Worley, ENVIRONMENTAL EMERGENCIES PLANNER (Family); No ref. provider found (Referring) Assessment: Patient with 1. Right lower extremity nonhealing wound 2. Right Knee abscess, with suspicion for prosthetic right knee infection. 3. Chronic hepatitis C,(treated at [facility], and negative hepatitis C RNA.) 4. Bilateral lower extremity edema. Plan. Continue patient on current therapy Patient currently on IV Zosyn Patient on IV vancomycin DC IV vancomycin if negative MRSA. Follow-up culture from the right knee drainage. I reviewed blood cultures with no growth I reviewed wound culture from the lower right leg with polymicrobial Follow-up ESR, C-reactive protein 5.[address] scan of the right knee, with 2.8 x 2.5 cm ream and seen fluid collection and the suprapatellar area, concerning for abscess, as the right small joint effusion with synovial thickening noted. Podiatry evaluation recommended. I appreciate orthopedic evaluation, patient refusing aspiration of the right knee. Continue dressing as per consulting group analyst recommendation. We will continue to follow with you. Subjective: Patient was reevaluated today," on the bed mattress, was evaluated by the orthopedic doctor. Did not complain of any fever or chills. Still with right leg pain. Patient stated that he does not want any surgery, wants to continue on IV antibiotics. Exam: PACU Vitals 07/31/23 1041 BP: Pulse: Resp: 16 Temp: SpO2: Allergies: Patient has no known allergies. Current Facility-Administered Medications: albuterol inhaler 2 puff, 2 puff, Inhalation, Q6H PRN, Moncho Joaquin MD, 2 puff at 07/31/23 0932 aspirin EC tablet 81 mg, 81 mg, Oral, Daily, Moncho Joaquin MD, 81 mg at 07/31/23 0928 diazePAM (VALIUM) tablet 5 mg, 5 mg, Oral, Daily PRN, Moncho Joaquin MD diltiazem (CARDIZEM CD) 24 hr capsule 240 mg, 240 mg, Oral, Daily, Moncho Joaquin MD, 240 mg at 07/31/23 0928 gabapentin (NEURONTIN) capsule 400 mg, 400 mg, Oral, 4x daily, Moncho Joaquin MD, 400 mg at 07/31/23 1224 heparin (porcine) injection 5,000 Units, 5,000 Units, Subcutaneous, Q8H [facility], Moncho Joaquin MD, 5,000 Units at 07/31/23 0454 insulin lispro (AdmeLOG,HumaLOG) injection 0-15 Units, 0-15 Units, Subcutaneous, at bedtime, Moncho Joaquin MD insulin lispro (AdmeLOG,HumaLOG) injection 0-30 Units, 0-30 Units, Subcutaneous, TID AC, Moncho Joaquin MD ipratropium-albuteroL (DUO-NEB) 0.5-2.5 mg/3 ml nebulizer solution 3 mL, 3 mL, Inhalation, Q4H PRN, Moncho Joaquin MD lidocaine 1% (PF) (XYLOCAINE-MPF) 10 mg/mL (1 %) injection 1 mL, 1 mL, Injection, Once PRN, Cecilia Gonazles DPM meloxicam (MOBIC) tablet 15 mg, 15 mg, Oral, Daily, Moncho Joaquin MD, 15 mg at 07/31/23 0928 mometasone-formoterol (DULERA) 200-5 mcg/actuation inhaler 2 puff, 2 puff, Inhalation, BID, Moncho Joaquin MD, 2 puff at 07/29/23 2300 ondansetron (ZOFRAN-ODT) disintegrating tablet 4 mg, 4 mg, Oral, Q6H PRN OR ondansetron (ZOFRAN) injection 4 mg, 4 mg, Intravenous, Q6H PRN, Moncho Joaquin MD oxyCODONE (ROXICODONE) immediate release tablet 10 mg, 10 mg, Oral, Q4H PRN, Moncho Joaquni MD, 10 mg at 07/31/23 1041 pantoprazole (PROTONIX) EC tablet 20 mg, 20 mg, Oral, Daily, Moncho Joaquin MD, 20 mg at 07/31/23 0928 piperacillin-tazobactam (ZOSYN) IVPB 3.375 g (premix), 3.375 g, Intravenous, Q8H, Moncho Joaquin MD, Last Rate: 12.5 mL/hr at 07/31/23 1222, 3.375 g at 07/31/23 1222 predniSONE (DELTASONE) tablet 5 mg, 5 mg, Oral, Daily, Moncho Joaquin MD, 5 mg at 07/31/23 0928 Saline lock IV, , , Continuous AND sodium chloride (PF) (NS) flush 5 mL, 5 mL, Intravenous, PRN AND sodium chloride (PF) (NS) flush 5 mL, 5 mL, Intravenous, Q8H CASSIUS, 5 mL at 07/31/23 0600 AND sodium chloride 0.9% (NS), 0-150 mL/hr, Intravenous, PRN, Moncho Joaquin MD vancomycin (VANCOCIN) 1250 mg in sodium chloride 0.9% (NS) 250 mL IVPB, 1,250 mg, Intravenous, Q12H, Lindsey Zhang, [facility],PharmD, Last Rate: 250 mL/hr at 07/31/23 1047, 1,250 mg at 07/31/23 1047 PMH/PSH// reviewed, no change : Review of Systems: All systems were reviewed no change: Medications Reviewed. Chart Reviewed. Exam Findings: HEENT: Atraumatic/Pupils equal & reactive Neck: Supple, no rigidity ENT: No oral candidiasis Chest: Lungs clear bilaterally, no wheezing, or rales CVS: Normal S1 & S2+, Abdomen: Obese, mild edema, normal symmetry, Soft/non-tender. Benign, BS+ Extremities: No Deformities, bilateral lower extremity edema, and right knee ulceration, and tenderness, right leg with ulceration. Skin: Intact & No Rashes, or excoriations Musculoskeletal: No joint swelling, non tender TRAIN PLANNER: Awake, and Ox3 Wound: Ulceration of the right leg noted, and edema, right knee with ulceration Right leg wound right knee wound Tavera Catheter: None IV Access: Yes I reviewed Medications. I reviewed Labs. CT Knee Right With Contrast Final Result 1. There is a 2.8 x 2.5 cm rim-enhancing fluid collection within the suprapatellar subcutaneous soft tissues, concerning for an abscess. No soft tissue air is seen. 2. Small right knee joint effusion with synovial thickening. This likely communicates with the aforementioned suspected abscess. Consider arthrocentesis to evaluate for septic arthritis, as clinically indicated. 3. Edema throughout the right lower extremity subcutaneous tissues, which could represent cellulitis. [facility]/[employer] Collaboration Network Workstation ID: [id number] Laboratory and Additional Data Reviewed: Laboratory 07/31/23 2:31 PM Microbiology 07/31/23 2:31 PM Radiology 07/31/23 2:31 PM Medications 07/31/23 2:31 PM Lab Results Component Value Date WBC 2.56 (L) 07/30/2023 HGB 10.1 (L) 07/30/2023 HCT 32.4 (L) 07/30/2023 MCV 70.1 (L) 07/30/2023 PLT 105 (L) 07/30/2023 Lab Results Component Value Date GLUCOSE 135 (H) 07/31/2023 CALCIUM 7.9 (L) 07/31/2023 NA 139 07/31/2023 K 3.9 07/31/2023 CL 107 07/31/2023 BUN 16 07/31/2023 CREATININE 0.71 07/31/2023 CREATININE 0.70 07/31/2023 Problem List Items Addressed This Visit None Visit Diagnoses Wound cellulitis - Primary I have taken time to review patient's information and having discussions with appropriate care teams, I appreciate seeing your patient, will continue to follow with you, and adjust with more information. Medical Decision Making: Moderate This note is created with the assistance of a speech-recognition program. While intending to generate a document that actually reflects the content of the visit, the document can still have some errors including those of syntax and sound a- like substitutions which may escape proofreading. In such instances, actual meaning can be extrapolated by contextual derivation. [facility] [place] Assessment and Plan Carmen Gilman is a 58 y.o. adult patient of Ani Worley CNP with history hypertension, hyperlipidemia, COPD, adrenal insufficiency on prednisone pills, opiate dependence on Suboxone, cirrhotic liver, A-fib, chronic lower extremity wound chronic venous stasis, right lateral leg full-thickness ulcer s/p hematoma evacuation in April 2023, chronic pain syndrome, with complex right suprapatellar joint effusion s/p right total knee replacement requiring aspiration by Dr. Dukest May, chronic right-sided heart failure with pulm hypertension, portal hypertension and esophageal varices, pancytopenia, presented to [facility] due to wounds in the lower extremity with drainage and pain. Patient had recent positive gross from the wound and blood consent of bacteremia admitted for IV antibiotic. Right lower extremity wounds History of bacteremia Chronic venous stasis Chronic right lateral leg full-thickness ulcer Right ankle and above the right knee Continue to monitor vital signs as per protocol Continue IV antibiotic with Zosyn Follow-up MRSA negative, discontinue vancomycin Follow-up blood cultures, wound culture, NGTD ESR, CRP WNL Podiatry on board ID on board complex right suprapatellar joint effusion Possible suprapatellar subcutaneous abscess status post right total knee replacement required aspiration by Dr. Dukes in May culture showed no growth at that time Also presents with draining wound at that area CT scan of the right knee showed 2.8 x 2.5 cm fluid collection in the suprapatellar subcutaneous soft tissue concerning for an abscess Consult orthopedic Continue antibiotic as above Pain control PT OT Chronic pain syndrome History of opioid dependency Previously on Suboxone not anymore Taking Percocet as needed Diabetes mellitus Will monitor blood glucose and insulin sliding scale and place the patient on carb controlled diet History of atrial fibrillation Is off of anticoagulation taking Cardizem CD 240 mg daily heart rate is controlled Chronic adrenal insufficiency Is maintained on oral prednisone 5 mg daily Chronic obstructive pulmonary disease Stable without evidence of exacerbation Peripheral neuropathy Is maintained on gabapentin Discharge Planning Medically Stable for Discharge Date: 08/04 Patient requires continued hospitalization due to: IV antibiotic, podiatry evaluation, orthopedic evaluation, Discharge Location: TBD Quality Measures DVT Prophylaxis: heparin subcutaneous Tavera Catheter: absent Code Status full code Primary Contact Information Subjective Patient was seen and examined today morning at bedside. No acute overnight events. Still have pain in his lower extremities. Denied chest pain fever or cough. Was able to discuss the treatment plan and answered all his questions. . Objective BP (!) 147/85 Pulse 72 Temp 97.1 F (36.2 C) Resp 16 Ht 6' Wt 108.9 kg (240 lb) SpO2 91% BMI 32.55 kg/m Physical Examination General Appearance: somnolent; chronically ill appearing; in no acute distress HEENT: Head- normocephalic; Eyes- EOMI, sclera anicteric; Throat- mucous membranes moist Cardiovascular: regular rate and rhythm; normal S1, S2; no murmurs, rubs, clicks or gallops; peripheral edema 1+ Respiratory: lungs clear to auscultation; without wheezes, rales or rhonchi; on room air Abdomen: soft, non-tender, non-distended Neurological: oriented x 3; normal speech; no focal findings or movement disorder noted Musculoskeletal: no significant deformity or tenderness to palpation Skin: Erythema in the bilateral lower extremity bluish discoloration of the right lower extremity, clean and dry dressing noted Psych: normal mood and affect [facility] [place] Assessment and Plan Carmen Gilman is a 58 y.o. adult patient of Ani Worley CNP with history hypertension, hyperlipidemia, COPD, adrenal insufficiency on prednisone pills, opiate dependence on Suboxone, cirrhotic liver, A-fib, chronic lower extremity wound chronic venous stasis, right lateral leg full-thickness ulcer s/p hematoma evacuation in April 2023, chronic pain syndrome, with complex right suprapatellar joint effusion s/p right total knee replacement requiring aspiration by Dr. Dukest May, chronic right-sided heart failure with pulm hypertension, portal hypertension and esophageal varices, pancytopenia, presented to [facility] due to wounds in the lower extremity with drainage and pain. Patient had recent positive gross from the wound and blood consent of bacteremia admitted for IV antibiotic. Right lower extremity wounds History of bacteremia Chronic venous stasis Chronic right lateral leg full-thickness ulcer Right ankle and above the right knee Continue to monitor vital signs as per protocol Continue IV antibiotic with vancomycin and Zosyn Follow-up MRSA Follow-up blood cultures, wound culture, ESR, CRP Podiatry consulted ID consult complex right suprapatellar joint effusion Possible suprapatellar subcutaneous abscess status post right total knee replacement required aspiration by Dr. Dukes in May culture showed no growth at that time Also presents with draining wound at that area CT scan of the right knee showed 2.8 x 2.5 cm fluid collection in the suprapatellar subcutaneous soft tissue concerning for an abscess Consult orthopedic Continue antibiotic as above Pain control PT OT Chronic pain syndrome History of opioid dependency Previously on Suboxone not anymore Taking Percocet as needed Diabetes mellitus Will monitor blood glucose and insulin sliding scale and place the patient on carb controlled diet History of atrial fibrillation Is off of anticoagulation taking Cardizem CD 240 mg daily heart rate is controlled Chronic adrenal insufficiency Is maintained on oral prednisone 5 mg daily Chronic obstructive pulmonary disease Stable without evidence of exacerbation Peripheral neuropathy Is maintained on gabapentin Discharge Planning Medically Stable for Discharge Date: 08/02 Patient requires continued hospitalization due to: IV antibiotic, podiatry evaluation, orthopedic evaluation, Discharge Location: TBD Quality Measures DVT Prophylaxis: heparin subcutaneous Tavera Catheter: absent Code Status full code Primary Contact Information Subjective Patient seen and examined today morning at bedside. Complaining of pain in his legs and he was saying that he was kicked out by his son-in-law??. He denies any abdominal pain fever or chills chest pain diarrhea or constipation. Objective BP 134/80 Pulse 70 Temp 97.7 F (36.5 C) (Oral) Resp 16 Ht 6' Wt 108.9 kg (240 lb) SpO2 91% BMI 32.55 kg/m Physical Examination General Appearance: somnolent; chronically ill appearing; in no acute distress HEENT: Head- normocephalic; Eyes- EOMI, sclera anicteric; Throat- mucous membranes moist Cardiovascular: regular rate and rhythm; normal S1, S2; no murmurs, rubs, clicks or gallops; peripheral edema 1+ Respiratory: lungs clear to auscultation; without wheezes, rales or rhonchi; on room air Abdomen: soft, non-tender, non-distended Neurological: oriented x 3; normal speech; no focal findings or movement disorder noted Musculoskeletal: no significant deformity or tenderness to palpation Skin: normal coloration Psych: normal mood and affect Pharmacy to Dose Antimicrobials Assessment / Plan: Carmen Gilman is a 58 y.o. adult initiated on vancomycin for skin/soft tissue infection. Vancomycin goal AUC is 400-600 mcg h/mL. Current regimen will produce a predicted AUC of 462 mcg h/mL with trough of 14.5 mcg/mL. Pharmacy will continue to follow and make adjustments as needed. Please use Vocera to call pharmacy or secure chat the assigned pharmacist with questions. Dosing for this admission: Date Dose and interval before level (or initial dose) Level Dose and interval after level Notes/Follow-Up 07/29 2500mg x once, the 1250mg q12h -- -- Other active antibiotics include: piperacillin-tazobactam 3375mg q8h Objective: Lab Results Component Value Date CREATININE 0.61 07/29/2023 CREATININE 0.51 07/13/2023 CREATININE 0.60 06/18/2023 CREATININE 0.44 (L) 06/10/2023 CREATININE 0.55 06/06/2023 Lab Results Component Value Date WBC 2.74 (L) 07/29/2023 WBC 2.27 (L) 07/13/2023 WBC 2.10 (L) 06/18/2023 WBC 2.67 (L) 06/10/2023 WBC 2.51 (L) 06/05/2023 Ht Readings from Last 1 Encounters: 07/29/23 6' (182.9 cm) Wt Readings from Last 1 Encounters: 07/29/23 108.9 kg (240 lb) Cliff body weight: 77.6 kg (171 lb 1.2 oz) Adjusted ideal body weight: 90.1 kg (198 lb 10.3 oz) Patient Tmax (last 24 hours): 99 F Micro: pending Pharmacy Personnel: Lindsey Zhang RPh,PharmD Contact: or Vocera documented in this encounter [facility] 08-11-2023 Hospital course Narrative Images from the original note were not included. [facility] [place] [facility] Carmen Gilman Admitted: 07/29/2023 Discharge Date: 08/11/23 PCP Handoff Recommended Outpatient Testing F/u with Dr. Gonzales as OP Results Pending At Discharge none Clinical Summary Carmen Gilman is a 58 y.o. adult patient of Ani Worley CNP with history hypertension, hyperlipidemia, COPD, adrenal insufficiency on prednisone pills, opiate dependence on Suboxone, cirrhotic liver, A-fib, chronic lower extremity wound chronic venous stasis, right lateral leg full-thickness ulcer s/p hematoma evacuation in April 2023, chronic pain syndrome, with complex right suprapatellar joint effusion s/p right total knee replacement requiring aspiration by Dr. Dukest May, chronic right-sided heart failure with pulm hypertension, portal hypertension and esophageal varices, pancytopenia, presented to [facility] due to wounds in the lower extremity with drainage and pain. Patient had recent positive gross from the wound and blood consent of bacteremia admitted for IV antibiotic. Right lower extremity wounds History of bacteremia Chronic venous stasis Chronic right lateral leg full-thickness ulcer Right ankle and above the right knee IV antibiotic with Zosyn initially then switched to Keflex and Bactrim on 08/04 per ID recommendation, obtain oral antibiotic discontinued and restarted on Zosyn on 08/06 Follow-up MRSA negative, discontinue vancomycin Follow-up blood cultures, wound culture, NGTD ESR, CRP WNL Podiatry on board status post wound VAC, split thickness skin graft applicatio done on 08/05 recommendation to keep the patient few more days in the hospital ID on board-zosyn on discharge complex right suprapatellar joint effusion Possible suprapatellar subcutaneous abscess Possible septic right total knee replacement status post right total knee replacement required aspiration by Dr. Dukes in May culture showed no growth at that time Also presents with draining wound at that area CT scan of the right knee showed 2.8 x 2.5 cm fluid collection in the suprapatellar subcutaneous soft tissue concerning for an abscess Consult orthopedic Continue antibiotic as above Pain control PT OT recommendation up to 5 sessions per week patient is refusing knee aspiration, have a detailed discussion with the patient on 08/01 risks and benefits of knee aspiration. Patient understands all the risk and benefits and refuses to continue with knee aspiration. Pancytopenia Possible iron deficiency anemia History of beta thalassemia On 08/04 hemoglobin 9.4, white blood cells 2.3, platelets 84 On 08/06, hemoglobin 9.6, white blood cells 2.7, platelets 84 vitamin B12, folate within normal limits iron panel, iron level 37, ferritin 33, iron saturation 14, TIBC 273 LDH within normal limits Consult oncology Chronic pain syndrome History of opioid dependency Previously on Suboxone not anymore Taking Percocet as needed Diabetes mellitus ruled out A1c 4.5 History of paroxysmal atrial fibrillation Is off of anticoagulation taking Cardizem CD 240 mg daily heart rate is controlled Patient denies any history of A-fib probably he is not aware of that Chronic adrenal insufficiency Is maintained on oral prednisone 5 mg daily Chronic obstructive pulmonary disease, he is in denial that he has COPD Stable without evidence of exacerbation Peripheral neuropathy Is maintained on gabapentin Discharge Medications Discharge Medications New Medications Details piperacillin-tazobactam IV (Outpatient Therapy) Commonly known as: ZOSYN Infuse 3.375 g into a venous catheter every 8 (eight) hours .Obtain labs for cbc,esr, crp and bmp weekly for 3 weeks. Follow up with Dr. Garrett in 2 wks. End: 09/01/23 Quantity: 48 each Modified Medications Details oxyCODONE 10 MG Tab Commonly known as: ROXICODONE What changed: when to take this Another medication with the same name was removed. Continue taking this medication, and follow the directions you see here. Take 1 (one) tablet (10 mg total) by mouth every 6 (six) hours as needed For wound for 30 days. GDR of pain medications. Please see new order dosagfe . Quantity: 6 tablet Medications To Continue Details * albuterol 90 mcg/actuation inhaler Inhale 2 (two) puffs every 6 (six) hours as needed for wheezing . * albuterol 2.5 mg /3 mL (0.083 %) nebulizer solution Commonly known as: PROVENTIL Take 3 mL (2.5 mg total) by nebulization every 6 (six) hours as needed for wheezing . Quantity: 75 mL aspirin 81 MG EC tablet Take 1 (one) tablet (81 mg total) by mouth every morning . Combivent Respimat 20-100 mcg/actuation Mist Generic drug: ipratropium-albuteroL Inhale 1 (one) puff to 2 (two) puffs every 4 to 6 hours as needed . diltiazem 240 MG 24 hr capsule Commonly known as: TIAZAC Take 1 (one) capsule (240 mg total) by mouth every morning . gabapentin 400 MG capsule Commonly known as: NEURONTIN Take 1 (one) capsule (400 mg total) by mouth 4 (four) times a day . LACTOBACILLUS ACIDOPH-L.BULGAR ORAL Take 1 tablet by mouth every morning For 14 days for atb use . meloxicam 15 MG tablet Commonly known as: MOBIC Take 1 (one) tablet (15 mg total) by mouth every morning . naloxone 4 mg/actuation [place] Commonly known as: NARCAN Administer 1 spray into one nostril for known or suspected opioid overdose. If patient worsens or does not respond, may repeat in 2-3 minutes. . Quantity: 2 each pantoprazole 20 MG tablet Commonly known as: PROTONIX Take 1 (one) tablet (20 mg total) by mouth daily Start: 01/09/20. Quantity: 30 tablet predniSONE 5 MG tablet Commonly known as: DELTASONE Take 1 (one) tablet (5 mg total) by mouth daily . Quantity: 30 tablet simethicone 125 MG chewable tablet Commonly known as: GAS-X Extra Strength Chew and Swallow 1 (one) tablet (125 mg total) every 6 (six) hours as needed (gas/bloating) . Symbicort 160-4.5 mcg/actuation inhaler Generic drug: budesonide-formoteroL Inhale 2 (two) puffs 2 (two) times a day . * There are duplicate medications prescribed to the patient Stopped Medications clindamycin 150 MG capsule Commonly known as: CLEOCIN diazePAM 5 MG tablet Commonly known as: VALIUM oxyCODONE 5 MG immediate release tablet Commonly known as: ROXICODONE You also have another medication with the same name that you need to continue taking as instructed. Physician(s) Follow Up: Kinza Garrett MD [address] [place] [address] Follow up in 2 week(s) Condition at Discharge: Good Disposition: SNF I reviewed discharge recommendations with the patient in person. Patient instructions, including activity, were given to the patient/family at discharge. On day of discharge I saw Carmen Gilman and spent: > 30 minutes on discharge. Completed by: Christian Porter on 08/11/23, 12:47 PM documented in this encounter [facility] 08-09-2023 Hospital Discharge instructions Quyen Franco CNP - 08/09/2023 2:33 PM EST Per podiatry: Maintain right thigh xeroform dressing intact, DO NOT remove. If there is any drainage or oozing, reinforce with gauze and kerlix. Position a fan near the thigh when lying in bed to continue drying the graft donor site R lower leg - do not remove dressing, keep clean and dry L lower leg wound healed, protect with kerlix wrap for a few more days to ensure ulcer stays closed No weightbearing limitations to lower legs but avoid being on feet too long. Elevate legs as much as able Do not get right leg and thigh wet. Do not shower Follow up with Dr. Gonzales in the wound clinic as scheduled documented in this encounter [facility] 08-09-2023 Miscellaneous Notes PHYSICAL THERAPY VISIT VARIANCE NOTE Attempted to see patient at this time, but unable secondary to: Refused. Pt reports being non wt bearing. Pt educated on importance of continued movement. Pt then reporting that he is pivoting to the BSC. Pt refusing all forms of therapy at this time. Will follow up as appropriate. Problem: Actual or potential alteration in health Goal: Absence of healthcare acquired conditions Outcome: Partially Met Goal: Knowledge of Interdisciplinary Plan of Care Outcome: Partially Met Goal: Knowledge of Enviroment Outcome: Partially Met Problem: Pain Goal: Manage acute pain Outcome: Partially Met Goal: Manage chronic pain Outcome: Partially Met Goal: Reduced pain sensation Outcome: Partially Met Goal: Achievement of comfort function goal Outcome: Partially Met Problem: Pressure Ulcer - Risk of Goal: Absence of pressure ulcer Outcome: Partially Met Problem: Pressure Ulcer - Risk of Goal: Absence of pressure ulcer Outcome: Partially Met OCCUPATIONAL THERAPY VISIT VARIANCE NOTE Attempted to see patient at this time, but unable secondary to: Refused. Will follow up as appropriate. PHYSICAL THERAPY VISIT VARIANCE NOTE Attempted to see patient at this time, but unable secondary to: Patient Unavailable [place] [facility] [place] Will follow up as appropriate. Problem: Actual or potential alteration in health Goal: Absence of healthcare acquired conditions Outcome: Partially Met Goal: Knowledge of Interdisciplinary Plan of Care Outcome: Partially Met Goal: Knowledge of Enviroment Outcome: Partially Met Problem: Pain Goal: Manage acute pain Outcome: Partially Met Goal: Manage chronic pain Outcome: Partially Met Goal: Reduced pain sensation Outcome: Partially Met Goal: Achievement of comfort function goal Outcome: Partially Met Problem: Pressure Ulcer - Risk of Goal: Absence of pressure ulcer Outcome: Partially Met Images from the original note were not included. Brief Post Operative Note Patient Name: Carmen Gilman : 1965 (58 y.o.) Date of Service: 08/05/2023 CSN: [id number] Procedure(s): RIGHT LOWER LEG SPLIT THICKNESS SKIN GRAFT Pre-Operative Diagnoses: * Chronic Leg Wound, Right Leg Post-Operative Diagnoses: * Same as Pre-Op Diagnosis Surgeon(s) and Role: * Cecilia Gonzales DPM - Primary Anesthesiologist: Bryson Kelley MD RN INTERVENTIONAL: Maury Lu CRNA Ekg Manager: Jeremy Fink RN Scrub Person Relief: Jolanta Pacheco ST Scrub Person: Umberto Brennan RN Operative findings: Same as preoperative diagnosis. Right leg wound measures approximately 10 x 16 x 0.2 cm. No purulence. Healthy granular tissue. Intra and immediate post-operative complications: None Type of anesthesia used: General Estimated blood loss: 20 mL Estimated urine output: Specimen(s): * No specimens in log * Implant(s): * No implants in log * Drain(s): * No LDAs found * Wound(s): Wound 05/18/23 Skin Tear Pre-tibial Left (Active) Reassessment Unchd 08/01/23 1100 Dressing Status Intact 08/05/23 0807 Dressing Changed Changed 08/04/23 0600 Wound Image 07/29/23 1319 Wound Length (cm) 1.5 cm 07/29/23 1319 Wound Width (cm) 1.3 cm 07/29/23 1319 Wound Depth (cm) 0.1 cm 07/29/23 1319 Wound Surface Area (cm^2) 1.95 cm^2 07/29/23 1319 Wound Volume (cm^3) 0.195 cm^3 07/29/23 1319 Area % Change 0 07/29/23 1319 Wound Healing % 96 07/29/23 1319 Drainage Amount Scant 08/04/23 0600 Drainage Description Serosanguineous 08/04/23 0600 Odor None 08/04/23 0600 Adherent Yellow Slough % 1-25% 07/29/23 1319 Granulation % Bright red 07/29/23 1319 Exposed Structure None 07/29/239 Wound Bed Characteristics Clean;Dry;Intact 08/02/23 2221 Tiffany-wound Assessment Intact 07/29/23 1319 Cleansed Sterile saline 08/04/23 0600 Primary Dressing Impregnated gauze 08/04/23 0600 Secondary Dressing Gauze pad;Gauze roll 08/04/23 0600 Compression Dressing Not Applicable 08/04/23 0600 Wound 06/03/23 1 Surgical Wound Pre-tibial Right (Active) Reassessment Unchd 08/01/23 1100 Dressing Status Intact 08/05/23 0807 Dressing Changed Changed 08/03/23 0848 Wound Image 08/03/23 0923 Wound Length (cm) 15 cm 08/03/23 0923 Wound Width (cm) 6.5 cm 08/03/23 0923 Wound Depth (cm) 0.1 cm 08/03/23922 Wound Surface Area (cm^2) 97.5 cm^2 08/03/23 0923 Wound Volume (cm^3) 9.75 cm^3 08/03/23 09 Area % Change -12.9 08/03/23922 Wound Healing % 51 08/03/23922 Wound Progress Improving 08/01/23 1055 State of Healing Fully granulated 08/01/23 1055 Non-staged Wound Description Partial thickness 08/01/23 1055 Drainage Amount Moderate 08/01/23 1055 Drainage Description Serosanguineous 08/01/23 1055 Odor None 08/01/23 1055 Wound Margin Attached to wound base 08/01/23 1055 Granulation % 76-100%;Bright red 08/01/23 1055 Wound Bed Characteristics Clean;Granulation tissue 08/01/23 1055 Tiffany-wound Assessment Temperature WNL 08/01/23 1055 Cleansed Sterile saline 08/01/23 1055 Primary Dressing Gauze roll 08/01/23 1100 Secondary Dressing Gauze pad;Gauze roll 08/01/23 1055 Compression Dressing Teddy wrap 08/01/23 1055 Wound 07/15/23 Calf Right (Active) Reassessment Unchd 08/01/23 1100 Dressing Status Intact 08/05/23 0807 Dressing Changed Reinforced 08/03/23 0848 Primary Dressing Gauze roll 08/01/23 1100 Secondary Dressing Dry gauze;Gauze roll 07/31/23 1616 Compression Dressing Teddy wrap 07/31/23 1616 Wound 07/29/23 Knee Anterior;Right (Active) Reassessment Unchd 08/01/23 1100 Dressing Status Intact 08/05/23 0807 Dressing Changed Changed 08/05/23 1746 Wound Image 07/29/23 1316 Wound Length (cm) 1.8 cm 08/04/23 1224 Wound Width (cm) 0.8 cm 08/04/23 1224 Wound Surface Area (cm^2) 1.44 cm^2 08/04/23 1224 Area % Change 0 08/04/23 1224 Wound Progress No change 08/04/23 1828 Drainage Amount Small 08/05/23 1746 Drainage Description Cloudy 08/05/23 1746 Odor None 08/05/23 1746 Wound Bed Characteristics Crescent 08/04/23 1828 Wound Closure Other (Comment) 08/05/23 1746 Tiffany-wound Assessment Crescent 08/05/23 1746 Hemostasis Not applicable 08/05/23 1746 Primary Dressing Adhesive bandage 08/05/23 1746 Secondary Dressing Dry gauze 08/04/23 1828 Compression Dressing Not Applicable 08/05/23 1746 Wound 08/05/23 1 Surgical Wound Upper Leg Anterior;Right (Active) Wound Closure Other (Comment) 07/29/23 0004 Cecilia Gonzales DPM 08/05/2023 5:56 PM OCCUPATIONAL THERAPY VISIT VARIANCE NOTE Attempted to see patient at this time, but unable secondary to: Refused. Reported he was awaiting surgery this date. Stated " I am having a R skin graft today." Will follow up as appropriate. Problem: Actual or potential alteration in health Goal: Absence of healthcare acquired conditions Outcome: Partially Met Goal: Knowledge of Interdisciplinary Plan of Care Outcome: Partially Met Goal: Knowledge of Enviroment Outcome: Partially Met Problem: Pain Goal: Manage acute pain Outcome: Partially Met Goal: Manage chronic pain Outcome: Partially Met Goal: Reduced pain sensation Outcome: Partially Met Goal: Achievement of comfort function goal Outcome: Partially Met Problem: Pressure Ulcer - Risk of Goal: Absence of pressure ulcer Outcome: Partially Met Problem: Actual or potential alteration in health Goal: Absence of healthcare acquired conditions Outcome: Partially Met Goal: Knowledge of Interdisciplinary Plan of Care Outcome: Partially Met Goal: Knowledge of Enviroment Outcome: Partially Met Problem: Pain Goal: Manage acute pain Outcome: Partially Met Goal: Manage chronic pain Outcome: Partially Met Goal: Reduced pain sensation Outcome: Partially Met Goal: Achievement of comfort function goal Outcome: Partially Met Problem: Pressure Ulcer - Risk of Goal: Absence of pressure ulcer Outcome: Partially Met Problem: Actual or potential alteration in health Goal: Absence of healthcare acquired conditions Outcome: Partially Met Goal: Knowledge of Interdisciplinary Plan of Care Outcome: Partially Met Goal: Knowledge of Enviroment Outcome: Partially Met Problem: Pain Goal: Manage acute pain Outcome: Partially Met Goal: Manage chronic pain Outcome: Partially Met Goal: Reduced pain sensation Outcome: Partially Met Goal: Achievement of comfort function goal Outcome: Partially Met Problem: Pressure Ulcer - Risk of Goal: Absence of pressure ulcer Outcome: Partially Met PHYSICAL THERAPY VISIT VARIANCE NOTE Attempted to see patient at this time, but unable secondary to: Awaiting Medical Clearance (Clarifying WB status s/p wound vac placement to RLE this AM. Secure chat sent). Will follow up as appropriate. Problem: Actual or potential alteration in health Goal: Absence of healthcare acquired conditions Outcome: Partially Met Goal: Knowledge of Interdisciplinary Plan of Care Outcome: Partially Met Goal: Knowledge of Enviroment Outcome: Partially Met Problem: Pain Goal: Manage acute pain Outcome: Partially Met Goal: Manage chronic pain Outcome: Partially Met Goal: Reduced pain sensation Outcome: Partially Met Goal: Achievement of comfort function goal Outcome: Partially Met Problem: Pressure Ulcer - Risk of Goal: Absence of pressure ulcer Outcome: Partially Met Short run of vent dariel noted, notifed Sheryl Eller NP. TEDDY wraps applied to BLE at 2340, pt has now removed both wraps reporting they are causing increased pain. Problem: Actual or potential alteration in health Goal: Absence of healthcare acquired conditions Outcome: Partially Met Goal: Knowledge of Interdisciplinary Plan of Care Outcome: Partially Met Goal: Knowledge of Enviroment Outcome: Partially Met Problem: Pain Goal: Manage acute pain Outcome: Partially Met Goal: Manage chronic pain Outcome: Partially Met Goal: Reduced pain sensation Outcome: Partially Met Goal: Achievement of comfort function goal Outcome: Partially Met Problem: Pressure Ulcer - Risk of Goal: Absence of pressure ulcer Outcome: Partially Met Problem: Actual or potential alteration in health Goal: Absence of healthcare acquired conditions Outcome: Partially Met Goal: Knowledge of Interdisciplinary Plan of Care Outcome: Partially Met Goal: Knowledge of Enviroment Outcome: Partially Met ED Attestation: I did not see this patient. However, I was personally available for consult in the ED for this patient, if the Advanced Practice Provider (WHIT) needed any assistance. The WHIT evaluated the patient independently for a complaint of Wound Check, and completed their own examination, documentation, and discharge. documented in this encounter [facility] 08-08-2023 Consult note Associated Order (s): IP CONSULT TO ENTEROSTOMAL THERAPY Wound vac [id number] Returned to the wound clinic via surgical staff and placed in the dirty utility for fruit picker. Wound is no longer being managed by the wound care team, wound care to sing off at this time. Re consult if further wound care needs arise. Jessenia Cruz RN, [place] Associated Order(s): IP CONSULT TO ONCOLOGY Hematology and Oncology Consult Note Patient Name: Carmen Gilman Admit Date: [id number] MR #: [id number] : 1965 Physicians: Ani Worley, ENVIRONMENTAL EMERGENCIES PLANNER (Family); No ref. provider found (Referring) Impression and Recommendations Pancytopenia, with features of hypochromic microcytic anemia, differential indicating neutropenia and lymphopenia. Preliminary workup has demonstrated evidence of iron deficiency, suspect a component of prolonged hospitalization/repeated phlebotomy/blood loss from the wound, rule out or GI blood loss. Suspect the cytopenias to be reactive secondary to underlying infection/chronic inflammation, rule out disorder of the bone marrow such as MDS or lymphoproliferative disorder. Would proceed with obtaining a peripheral smear evaluation, reticulocyte count, liver spleen ultrasonogram and plan further History of beta thalassemia trait, potentially contributing to the hypochromic microcytic features, the Red cell indicis may be influenced by the current iron deficiency as well. History of diabetes and COPD management as per primary team Chronic lower extremity wound, appreciate ID/ podiatry evaluation and management Chief Complaint/Reason for Consult Reason for consult: Pancytopenia History of Presenting Illness: Carmen Gilman is a 58 y.o. y/o adult with history of multiple medical problems including diabetes mellitus, right knee arthroplastic surgery, COPD, opioid dependence, who has had issues with nonhealing ulcer involving the lower extremities. He has been on antibiotic therapy at the direction of infectious disease specialist and followed by podiatry as well. In the course of the hospitalization he has noted to become progressively cytopenic prompting hematology consult. Is noted to have chronic microcytic hypochromic anemia, with normal Red cell volume, dating back to 2019 and he reports being diagnosed with beta thalassemia trait. More recently he has become more leukopenic and thrombocytopenic that prompted this consult. He denies any headaches or visual blurring, chest discomfort or shortness of breath, denies any night sweats or fever or change in bowel habits or blood in the stool or black stool. He denies any tingling or numbness in the hands or feet. Review of Systems : The following system(s) were reviewed and pertinent findings noted: Pertinent Positive findings were : As noted above Past Medical, Surgical, Family, and Social History: Past Medical History: Diagnosis Date Anxiety Arrhythmia Arthritis Asthma COPD (chronic obstructive pulmonary disease) (HCC) Diabetes (HCC) Hypertension Opioid dependence (HCC) Secondary adrenal insufficiency (HCC) 04/30/2022 left AMA 04/30/22 without treatment Past Surgical History: Procedure Laterality Date APPENDECTOMY ARTHROPLASTY KNEE TOTAL ROBOTIC ASSISTED Right 01/08/2020 Procedure: Right Total Knee Replacement Robotic; Surgeon: Sofía Dukes MD; Location: Main OR; Service: Ortho-Robotics DEBRIDEMENT WITH WOUND CLOSURE POSS SKIN GRAFT LOWER EXTR Right 06/03/2023 Procedure: RIGHT LATERAL LEG Debridement with VERSAJET; Surgeon: ALEXEY Radford, DPMicheal; Location: Main OR; Service: Podiatry FOOT SURGERY Left MANDIBLE FRACTURE SURGERY ORTHOPEDIC SURGERY Right knee THORACIC DUCT LIGATION 01/15/2017 THORACIC DUCT LIGATION WOUND VAC Right 06/03/2023 Procedure: APPLICATION WOUND VAC; Surgeon: ALEXEY Radford DPM; Location: Main OR; Service: Podiatry Family History Problem Relation Age of Onset Heart disease Mother Diabetes Mother Social History Socioeconomic History Marital status: Single Tobacco Use Smoking status: Former Passive exposure: Current Smokeless tobacco: Current Types: Chew Vaping Use Vaping Use: Never used Substance and Sexual Activity Alcohol use: Not Currently Drug use: Not Currently Types: Marijuana Sexual activity: Not Currently Social History Narrative Merged History Encounter Merged History Encounter Social Determinants of Health Financial Resource Strain: Low Risk (08/01/2023) Overall Financial Resource Strain (CARDIA) Difficulty of Paying Living Expenses: Not very hard Food Insecurity: No Food Insecurity (08/01/2023) Hunger Vital Sign Worried About Running Out of Food in the Last Year: Never true Ran Out of Food in the Last Year: Never true Transportation Needs: No Transportation Needs (08/01/2023) PRAPARE - Transportation Lack of Transportation (Medical): No Lack of Transportation (Non-Medical): No Housing Stability: Low Risk (08/01/2023) Housing Stability Vital Sign Unable to Pay for Housing in the Last Year: No Number of Places Lived in the Last Year: 2 Unstable Housing in the Last Year: No Other HX: Allergies and Medications: I have reviewed the patient's allergies. Patient has no known allergies. Home Medications: Prior to Admission medications Medication Sig Start Date End Date Taking? Authorizing Provider albuterol (PROVENTIL) 2.5 mg /3 mL (0.083 %) nebulizer solution Take 3 mL (2.5 mg total) by nebulization every 6 (six) hours as needed for wheezing . 04/03/19 07/29/23 Yes Kinsey Ignacio MD albuterol 90 mcg/actuation inhaler Inhale 2 (two) puffs every 6 (six) hours as needed for wheezing . Yes ProviderJamar MD aspirin 81 MG EC tablet Take 1 (one) tablet (81 mg total) by mouth every morning . 09/03/20 Yes Jamar Escobedo MD clindamycin (CLEOCIN) 150 MG capsule Take 3 (three) capsules (450 mg total) by mouth 3 (three) times a day For 10 days . 07/28/23 08/07/23 Yes Jamar Escobedo MD diltiazem (TIAZAC) 240 MG 24 hr capsule Take 1 (one) capsule (240 mg total) by mouth every morning . 09/03/20 Yes Jamar Escobedo MD gabapentin (NEURONTIN) 400 MG capsule Take 1 (one) capsule (400 mg total) by mouth 4 (four) times a day . 05/13/23 Yes Jamar Escobedo MD L. acidophilus/L.bulgaricus (LACTOBACILLUS ACIDOPH-L.BULGAR ORAL) Take 1 tablet by mouth every morning For 14 days for atb use . 07/28/23 08/11/23 Yes Jamar Escobedo MD meloxicam (MOBIC) 15 MG tablet Take 1 (one) tablet (15 mg total) by mouth every morning . Yes Jamar Escobedo MD naloxone (NARCAN) 4 mg/actuation [place] Administer 1 spray into one nostril for known or suspected opioid overdose. If patient worsens or does not respond, may repeat in 2-3 minutes. . 06/09/23 Yes Brody Newman MD oxyCODONE (ROXICODONE) 10 MG Tab Take 1 (one) tablet (10 mg total) by mouth every 8 (eight) hours as needed For wound for 30 days. GDR of pain medications. Please see new order dosagfe . 07/09/23 08/08/23 Yes Jamar Escobedo MD pantoprazole (PROTONIX) 20 MG tablet Take 1 (one) tablet (20 mg total) by mouth daily Start: 01/09/20. 01/09/20 07/29/23 Yes Sofía Dukes MD predniSONE (DELTASONE) 5 MG tablet Take 1 (one) tablet (5 mg total) by mouth daily . 05/13/22 Yes Dre Araujo, RODRIGUE simethicone (GAS-X Extra Strength) 125 MG chewable tablet Chew and Swallow 1 (one) tablet (125 mg total) every 6 (six) hours as needed (gas/bloating) . Yes Jamar Escobedo MD Combivent Respimat 20-100 mcg/actuation Mist Inhale 1 (one) puff to 2 (two) puffs every 4 to 6 hours as needed . 04/18/21 Jamar Escobedo MD diazePAM (VALIUM) 5 MG tablet Take 1 (one) tablet (5 mg total) by mouth daily as needed (benzo wean) . Provider, MD Jamar oxyCODONE (ROXICODONE) 5 MG immediate release tablet Take 2 (two) tablets (10 mg total) by mouth See Admin Instructions Pre-medicate with 10 mg of oxycodone 1 hour prior to dressing change Mondays and Wednesdays. Give dose Fridays before transport to wound clinic. Space this dose out from prn narcotics to avoid sedation. . 06/10/23 Quyen Franco, RODRIGUE Symbicort 160-4.5 mcg/actuation inhaler Inhale 2 (two) puffs 2 (two) times a day . 09/17/21 Provider, MD Jamar Physical Exam: Vital Signs: BP 131/81 Pulse 74 Temp 97 F (36.1 C) (Axillary) Resp 16 Ht 6' Wt 108.9 kg (240 lb) SpO2 90% BMI 32.55 kg/m General: alert, coherent, no acute distress, chronically ill-appearing, Eyes: anicteric, conjunctiva and lids normal Neck: no masses or thyromegaly, Lymph: no cervical, supraclavicular, infraclavicular, axillary or inguinal adenopathy Resp: lungs clear, no dullness to percussion, normal respiratory effort Cardiac: normal S1 and S2, no murmurs, or gallops, normal PMI, Gastro: Abdomen is full, unable to appreciate any organomegaly. M/S: Extremity in dressing within wound VAC. Skin: no rashes, no skin nodules , no ecchymosis or petechiae Neuro: alert, oriented, no focal deficits, motor grossly intact, speech normal Psych: judgement, insight, mood, and affect normal: Other Findings : Laboratory and Additional Data Reviewed: Laboratory 08/05/23 12:53 PM Microbiology 08/05/23 12:53 PM Pathology 08/05/23 12:53 PM Radiology 08/05/23 12:53 PM Cardiology 08/05/23 12:53 PM Medications 08/05/23 12:53 PM Transcriptions 08/05/23 12:53 PM Recent Labs 08/03/23 0426 08/04/23 0440 08/05/23 0423 WBC 3.31* 2.30* 2.48* HGB 10.4* 9.4* 9.4* PLT 104* 84* 84* Recent Labs 08/03/23 0426 08/04/23 0440 08/05/23 0423 NA 136 139 139 K 4.1 4.3 4.3 CL 105 107 107 BICARB 28 29 27 BUN 17 18 21 CREATININE 0.60 0.60 0.75 GLUCOSE 97 92 110* PHOS 3.4 4.0 3.5 MG 1.8 2.0 2.0 CALCIUM 8.3* 8.4 7.9* BILITOT 0.5 0.5 0.5 ALKPHOS 81 65 70 ALT 16 15 14 AST 15 13 13 PROT 7.4 6.6 6.4 ALBUMIN 3.0* 2.7* 2.6* No results for input(s): "INR", "PTT" in the last [address] Knee Right With Contrast Final Result 1. There is a 2.8 x 2.5 cm rim-enhancing fluid collection within the suprapatellar subcutaneous soft tissues, concerning for an abscess. No soft tissue air is seen. 2. Small right knee joint effusion with synovial thickening. This likely communicates with the aforementioned suspected abscess. Consider arthrocentesis to evaluate for septic arthritis, as clinically indicated. 3. Edema throughout the right lower extremity subcutaneous tissues, which could represent cellulitis. [facility]/[employer] Workstation ID: [id number] PICC Team consulted for USGPIV placement. Upon entering room and introducing ourselves the patient remembered that he had a PICC placement prior and he suggested that we do that instead of an IV. Leeann MENDOZA called Dr. Garrett and received order to place Midline or PICC line for 4 weeks of IV ATB. Explained to the patient that we had received the order for placement so we could proceed with a custodial line placement. Patient declined PICC placement stating he wants nothing near his heart. This RN suggested we could place a Midline then. Patient agreed and this RN began preparing for Midline Insertion. Patient then declined Midline placement stating he will take everything by mouth. Primary RN Jessenia in to discuss this with patient, patient continues to decline Midline or PICC placement. This team will notify Dr. Garrett of patients decision. Physical Therapy PHYSICAL THERAPY EVALUATION Dx: Foot infection Skilled Therapy Needs After Discharge Anticipate Resolution of Current Assessment Limitations Including: Pain, Mechanical Barriers, Social Support Are Skilled Therapy Services Needed After Discharge: Yes Intensity of Skilled Therapy: Up to 5 days per week DME Recommendation: Wheeled Walker, To be determined at next level of care (owns) DME Rationale: Patient's condition creates an increased risk of safety hazard without recommended equipment, Equipment required to maintain weight bearing status per physician orders Rehab Potential: Good, For goals Outcomes Measures Prior Function - Basic Mobility Raw Score: 24 Points Prior Function - Basic Mobility % Impaired: 0% AM-PAC Basic Mobility Raw Score: 17 Points AM-PAC Basic Mobility % Impaired: 43.83% Physical Therapy Assessment History: The following factors influence the patient's participation in the PT plan of care: Personal Factors: Age, Social Barriers, Body Habitus, Limited Baseline Mobility, Apprehensive Toward Mobility Environmental Factors: Other (comment) (homeless) The following co-morbidities (from this admission or prior) influence the patient's participation in this plan of care: See H&P Number of History elements affecting this patient's PT plan of care: 3 or more Examination of Body Systems: The patient presents with: Musculoskeletal impairments: Pain, Functional Endurance Cardiopulmonary Impairments: Activity Tolerance, Edema Integumentary Impairments: Active Wound, Tissue Healing, Skin Integrity. These impairments result in limitations of Gait, Functional Transfers, Stair-Climbing, Safety, Safety Awareness, Activity Tolerance, Insight. These impairments result in restrictions of Household mobility, Community mobility, Leisure activities. Number of Body Systems elements affecting this patient's PT plan of care: 4 or more. Clinical Presentation: The patient's clinical presentation for this PT evaluation is evolving with changing characteristics as evidenced by current PT documentation. Activity Tolerance Activity Tolerance: Tolerates 10 - 20 min activity with multiple rests Therapy Precautions Orthotic Devices: No Weight Bearing Status: X RLE: Wt bearing as tolerated General Rehab Precautions: Fall risk ("WBAT but minimal. Emphasize elevation of BLEs" per podiatry. Wound vac) Balance Assessment Sitting Balance - Static: Independent, with back unsupported Standing Balance - Static: Stand by assist, with device Bridge Construction Inspector - Standing Static: wheeled walker Bed Mobility Not assessed Transfers Sit to Stand: Stand by assist Bridge Construction Inspector: wheeled walker, BUE Gait/Locomotion Gait Assistance: Stand by assist Assistive Device: wheeled walker Distance: 15 Feet Pattern: step through, step to, L decreased step length, R decreased step length, R impaired heel strike, over reliance on upper extremities, forward flexed, decreased veronica (steps per minute), antalgic Weight Bearing Status: able to maintain Gait Loss(es) of Balance: (none with walker) Environment/Terrain: closed environment, minimal to no distractions Additional Assessment Details Pt sitting EOB at end of session. No alarm on at start. Dependent to don right sock at EOB Home Living Obtained Home Living and PLOF info from: Patient Type of Home: Homeless Mobility Equipment: Wheeled walker, Wheelchair - manual Additional Objective Details - Home Living: Pt becoming irritable with attempts at obtaining home set up information Prior Level of Function Level of [place] - Transfers/Ambulation/Mobility: Independent with functional transfers, Independent with household ambulation Subjective Impression - Prior Function: uses walker for mobility Past Medical History: Diagnosis Date Anxiety Arrhythmia Arthritis Asthma COPD (chronic obstructive pulmonary disease) (HCC) Diabetes (HCC) Hypertension Opioid dependence ([facility]) Secondary adrenal insufficiency ([facility]) 04/30/2022 left AMA 04/30/22 without treatment Past Surgical History: Procedure Laterality Date APPENDECTOMY ARTHROPLASTY KNEE TOTAL ROBOTIC ASSISTED Right 01/08/2020 Procedure: Right Total Knee Replacement Robotic; Surgeon: Sofía Dukes MD; Location: Main OR; Service: Ortho-Robotics DEBRIDEMENT WITH WOUND CLOSURE POSS SKIN GRAFT LOWER EXTR Right 06/03/2023 Procedure: RIGHT LATERAL LEG Debridement with VERSAJET; Surgeon: ALEXEY Radford DPM; Location: Main OR; Service: Podiatry FOOT SURGERY Left MANDIBLE FRACTURE SURGERY ORTHOPEDIC SURGERY Right knee THORACIC DUCT LIGATION 01/15/2017 THORACIC DUCT LIGATION WOUND VAC Right 06/03/2023 Procedure: APPLICATION WOUND VAC; Surgeon: ALEXEY Radford DPM; Location: Main OR; Service: Podiatry For complete objective data, detailed plan of care and patient education refer to: PT Evaluation flowsheet, PT Evaluation and Treatment flowsheet, PT Treatment flowsheet, patient Plan of Care, Plan of Care progress note, and Patient Education. This note stands as the current Discharge Summary upon patient discharge from the hospital or completion of Physical Therapy Plan. Occupational Therapy OCCUPATIONAL THERAPY EVALUATION Dx: Foot infection (+) wound vac WBAT per podiatry with emphasis of elevation of LE Skilled Therapy Needs After Discharge Anticipate Resolution of Current Assessment Limitations Including: Pain Are Skilled Therapy Services Needed After Discharge: Yes Intensity of Skilled Therapy: Up to 5 days per week Anticipated Duration of Skilled Therapy: Duration 10 - 30 days DME Recommendation: To be determined at next level of care Rehab Potential: Fair Outcomes Measures Prior Function Variance: Patient refuses test AM-PAC Daily Activity Raw Score: 16 AM-PAC Daily Activity % Impaired: 53.32% Occupational Therapy Assessment The patient's current functional participation deficits are grooming, UE dressing, LE dressing, bathing, toileting, meal preparation, home management, functional mobility. This reduced independence will limit their life roles of premorbid level individual. The patient's co morbidities do affect patient performance in the above activities and roles. The performance deficits are a result of musculoskeletal, psychological, integumentary impairment(s) in generalized debility, right, lower extremity including strength, range of motion, balance, acitvity tolerance, pain, safety, insight, problem solving, and knowledge deficit, motivation. The patient's home setup is a barrier, limitations of family / caregiver support is a barrier for return to prior level of function. The patient's compliance is a barrier to return to prior level of function. During the assessment, minimal to moderate modification of task was required and several treatment options were identified in the plan of care. This consultation required expanded review of the medical and therapy history. Activity Tolerance Activity Tolerance: Tolerates 10 - 20 min activity with multiple rests Therapy Precautions Orthotic Devices: No Weight Bearing Status: WFL General Rehab Precautions: Fall risk Cognition Overall Cognitive Status: Within Functional Limits Arousal/Alertness: Appropriate responses to stimuli Orientation Level: Oriented X4 Executive functioning: Insight Safety Judgment: Decreased awareness of need for assistance, Decreased awareness of need for safety Problem Solving: Assistance required to identify errors made, Assistance required to generate solutions, Assistance required to implement solutions Attention: Attends to quiet environment Hearing Status: WFL Social Interaction: Irritable, Agitation ADL Grooming: Set-up (seated per clinical reasoning) Upper Body Dressing: Set-up (seated per clinical reasoning) Lower Body Dressing: Dependent (To don bilateral socks seated EOB) Functional Mobility: Stand by assist, Adaptive equipment (to/from doorway with FWW) Bed Mobility Not assessed, pt seated EOB on arrival and exit. Functional Transfers Sit to Stand: Stand by assist Stand Pivot Transfers: Stand by assist Bridge Construction Inspector: wheeled walker Additional Assessment Details Pt seated EOB on OT arrival and exit with call light in reach. Home Living Obtained Home Living and PLOF info from: Patient Unable to obtain Home Living and PLOF info on initial eval: Patient is a questionable historian Type of Home: Homeless Mobility Equipment: Wheeled walker, Wheelchair - manual Additional Objective Details - Home Living: Pt becoming irritable with attempts at obtaining home set up information Prior Level of Function Level of Boutte - Transfers/Ambulation/Mobility: Independent with functional transfers, Independent with household ambulation Level of Boutte - ADLs: Independent Subjective Impression - Prior Function: Pt is a difficult historian, becomes irritable towards therapists with questions regarding PLOF and refusing to answer. Pt reports he does not have a home at this time and needs to go to a care home at discharge. Past Medical History: Diagnosis Date Anxiety Arrhythmia Arthritis Asthma COPD (chronic obstructive pulmonary disease) (HCC) Diabetes (HCC) Hypertension Opioid dependence (HCC) Secondary adrenal insufficiency (HCC) 04/30/2022 left AMA 04/30/22 without treatment Past Surgical History: Procedure Laterality Date APPENDECTOMY ARTHROPLASTY KNEE TOTAL ROBOTIC ASSISTED Right 01/08/2020 Procedure: Right Total Knee Replacement Robotic; Surgeon: Sofía Dukes MD; Location: Main OR; Service: Ortho-Robotics DEBRIDEMENT WITH WOUND CLOSURE POSS SKIN GRAFT LOWER EXTR Right 06/03/2023 Procedure: RIGHT LATERAL LEG Debridement with VERSAJET; Surgeon: ALEXEY Radford DPM; Location: Main OR; Service: Podiatry FOOT SURGERY Left MANDIBLE FRACTURE SURGERY ORTHOPEDIC SURGERY Right knee THORACIC DUCT LIGATION 01/15/2017 THORACIC DUCT LIGATION WOUND VAC Right 06/03/2023 Procedure: APPLICATION WOUND VAC; Surgeon: ALEXEY Radford DPM; Location: Main OR; Service: Podiatry For complete objective data, detailed plan of care and patient education refer to: OT Evaluation flowsheet, OT Evaluation and Treatment flowsheet, OT Treatment flowsheet, patient Plan of Care, Plan of Care progress note, and Patient Education. This note stands as the current Discharge Summary upon patient discharge from the hospital or completion of Occupational Therapy Plan of Care. Associated Order(s): IP CONSULT TO CARE MANAGEMENT Care Management Consult Note Date: 08/01/2023 Time: 2:00 PM Patient Name: Carmen Gilman Date of : 1965 Reason for Consult: Discharge Plan: Discharging Transportation Plan: Discharge Plan Status: pend medical readiness Assessment and Background Information: KELLY MCCRARY Assessment: Face to Face with pt for initial transition planning/care coordination assessment. RN CM introduced self and role, pt voices understanding and consents to assessment. Pt is A/Ox4 and answers all questions appropriately at this time. Pt is lying in bed in no distress on room air. Care providers, pharmacy, and demographics verified/updated. Admitting Dx: Foot infection PCP: Meir ARELLANO Specialists: Preferred Pharmacy: [facility] Insurance: [facility] Prescription Benefit: yes, pt states no concerns obtaining/affording meds and is compliant with meds at home. LW/HPOA: does not have LNOK: Ginny Parks, daughter; Johana Graf, daughter Living Arrangements: Pt lives with daughter, Johana, and her boyfriend but states is not really supposed to be staying there. Pt states was sent home from [facility] 'about a week ago'. Pt states is working with Jolanta Schaefer at [facility] to get re-set back up with apartment and Jolanta's number is [phone]. This RN CM spoke with Jolanta and she was under impression that pt was still at SNF. Jolanta said they are working on [employer] apt in [place] or [facility] apt. Transportation: Pt drives self and states no concerns with transportation. DME/HHC/SNF: Pt states no need for further DME. Pt has had HHC in the past but not currently and has been at [facility]. Pt states lost apartment d/t extended SNF stay. Pt states had referral to [facility] but states they cannot help him till he has apt set up. ANA Bryant at [facility] was assisting pt but had told him he will need to re-apply once home in own apt. [facility] was under impression pt was still at SNF. Stella, [place], updated on all and call placed to [facility]. Per [facility], pt came from there this visit and has not been living with daughter. 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 Treatment team updated. Pt does not smoke cigarettes or drink ETOH. Pt states no concerns with going home at time of dc and states no further questions/concerns/needs. Advised pt to ask for CM if any further question/concerns/needs arise, voices understanding. CM to follow. Pt Goal: Home to [facility] that is not set up yet Plan: Back to [facility] until appropriate discharge planning can be set up from their facility Living Arrangements: Family members Support Systems: Family members, project manager entertainment and media/home health care social worker Assistance Needed: none Type of Residence: Private residence Prior to Admission Home Care Services: No Current Home Equipment: Wheeled walker, Wheel chair Holistic Assessment Medication adherence problem:: No History of falls in last 6 months:: No Family aware of the patient's advance care planning wishes:: No Do you have any cultural/spiritual connections or beliefs that would impact how we deliver your care?: No Chronic pain:: (!) Yes Associated Order(s): IP CONSULT TO ENTEROSTOMAL THERAPY; IP CONSULT TO ENTEROSTOMAL THERAPY Images from the original note were not included. [facility] nursing visit for NPWT dressing application. Wound VAC # [id number] placed. Removed dressing, see details of wound and wound vac on the associated flow sheet. The tiffany wound skin was cleansed with soap and water, allowed to dry, and Cavilon no sting barrier film was applied. The wound was picture framed with drape. NPWT was initiated at 125 mmHg, no appreciable leaks. Patient tolerated the dressing change with minimal complaints of pain. Next dressing change Tuesday. Please contact the responsible surgeon/doctor for orders if the vac would malfunction or in the event the patient would need to be discharged or transferred. DO NOT discharge patient with hospital vac unit. NPWT / Wound VAC Instructions for discharge or transfer to another facility: Remove VAC dressing and discard canister. Take dirty unit to soiled utility room. Jessenia Cruz RN, CWCA ATTENDING PHYSICIAN [facility] PRIMARY CARE PHYSICIAN ANI WORLEY CNP ADMITTING PHYSICIAN MONCHO JOAQUIN MD CONSULTING PHYSICIAN [facility] HISTORY OF PRESENT ILLNESS Carmen is a gentleman well known to me. If you will recall, this gentleman had a right total knee replacement, we believe back in December 2019. The gentleman has multiple medical issues. I did a consultation on this gentleman on 06/03/2023, roughly 2 months ago, took a sample of fluid. The cultures were negative. He now has re-presented to the hospital with multiple issues including bilateral lower extremity cellulitis, chronic opioid dependency, diabetes, AFib, renal insufficiency, COPD, peripheral neuropathy, heart arrhythmias, and a wound that has shown a skin abscess that has drained and now has secondary intention healing underway. Past medical history, review of systems, medications are unchanged from my last consultation or the hospitalist admission. Currently, the patient is on Cleocin as well as Zosyn. He had a wound culture performed on which showed normal skin sobeida. He had a wound culture that showed rare gram-positive bacilli on 07/27/2023 from the skin abscess. At this time, the patient is awake. He is pleasant. I presented to the room, informing him that I wanted to aspirate his knee joint, not the area of the small skin abscess that has now decompressed and is being treated with secondary intention. I wanted to aspirate the total knee replacement to make sure that there was no intra-articular infection affecting his total knee replacement. He absolutely refused. The patient said he has no knee pain. He is walking fine on the leg. He loves his knee, and he is absolutely refusing an aspiration of the right knee. PHYSICAL EXAMINATION General: On today's exam, he is awake, alert, oriented x3. He is absolutely refusing any aspiration. He says he does not want the knee aspirated. It is not swollen. It does not hurt. He is walking good. Extremities: He has 2 small areas, 1 x 1 cm that have decompressed. There does appear to be some visual quadriceps tendon. There is no knee effusion. No suprapatellar effusion. His extensor mechanism is intact. IMPRESSION 1.Right knee skin abscess. 2.Possible septic right total knee replacement. PLAN 1.At this point in time, the patient says he absolutely is refusing a knee aspiration, does not care what it shows. Does not want his knee aspirated. Does not want to do anything different than he is doing. At this time, he says absolutely not; therefore, I will not aspirate the knee. Infectious Disease can treat his leg cellulitis and infection as they are. 2.They can do secondary intention healing on the skin abscess area, the proximal portion of the incision. If things change or his opinion changes, I could proceed forward with aspiration of the right knee joint to rule out septic total knee replacement. D 07/31/2023 10:05 [id number] 07/31/2023 11:25 MCB/MODL Associated Order(s): IP CONSULT TO PODIATRY Images from the original note were not included. Podiatry Inpatient Consult Note 07/30/2023 Cecilia Gonzales [facility] Patient Name: Carmen Gilman. . Date of : 1965, 58 y.o.. Gender: male. Date of Consultation: 07/30/2023. Author: Cecilia Gonzales Thank you Moncho Joaquin MD for this consultation. We appreciate the opportunity to help care for your patient. Below you will find our findings and recommendations: Assessment: Bilateral lower extremity wounds Right knee abscess wound Bilateral lower extremity lymphedema Diabetes peripheral neuropathy Plan: Patient was seen and evaluated. Discussed all clinical findings Patient has several wounds: 1. Right lower extremity full-thickness ulceration to the lateral right leg with serous drainage and fibrogranular wound bed. This also requires excisional debridement. I will plan to return tomorrow to apply lidocaine and debride the wound accordingly. Currently awaiting wound swab culture results which was obtained on 07/29/2023 2. Left lower extremity full-thickness ulceration to the medial left leg was recently debrided at the wound care center. No need for debridement today. Dressing will be changed tomorrow and to apply Gavino and Kristi dressing. 3. Right knee open wound concerning for underlying abscess. Reviewed CT of the right knee with contrast showing a 2.8 x 2.5 cm fluid collection within the suprapatellar subcutaneous soft tissues concerning for an abscess. Orthopedic consult was placed by hospitalist. Evaluation and management per orthopedics Continue IV antibiotics per ID recommendation. We will continue to follow closely. Cecilia Gonzales DPM, MS Podiatric Physician & Surgeon History of Present Illness: It is a pleasant 58-year-old male who was admitted to the hospital on 07/29/2023 due to erythema, edema and drainage from a new open wound to the right knee concerning for underlying abscess. Patient is being managed by me at the wound care center for bilateral lower extremity wounds. Patient has been noncompliant at times with dressing changes and wound care management. States that he is unaware how that his right knee wound started. States that the nursing facility doctor prescribed him antibiotic (clindamycin) for his right knee with significant improvement. No other pedal complaints at this time. Denies fevers, chills, nausea, vomiting, chest pain, shortness of breath, or any other constitutional symptoms. Allergies: No Known Allergies. Scheduled Meds: aspirin 81 mg Oral Daily diltiazem 240 mg Oral Daily gabapentin 400 mg Oral 4x daily heparin (porcine) 5,000 Units Subcutaneous Q8H CASSIUS lispro insulin 0-15 Units Subcutaneous at bedtime insulin lispro 0-30 Units Subcutaneous TID AC meloxicam 15 mg Oral Daily mometasone-formoterol 2 puff Inhalation BID pantoprazole 20 mg Oral Daily piperacillin-tazobactam (ZOSYN) extended infusion 3.375 g Intravenous Q8H predniSONE 5 mg Oral Daily sodium chloride (PF) 5 mL Intravenous Q8H CASSIUS vancomycin 1,250 mg Intravenous Q12H vancomycin per pharmacy 1 each Intravenous as indicated by pharmacokinetics . Continuous Infusions: sodium chloride 0.9 % . PRN Meds: albuterol, diazePAM, ipratropium-albuteroL, lidocaine 1% (PF), ondansetron OR ondansetron, oxyCODONE, Saline lock IV AND sodium chloride (PF) AND sodium chloride (PF) AND sodium chloride 0.9 %. Medical History: Past Medical History: Diagnosis Date Anxiety Arrhythmia Arthritis Asthma COPD (chronic obstructive pulmonary disease) (HCC) Diabetes (HCC) Hypertension Opioid dependence (HCC) Secondary adrenal insufficiency (HCC) 04/30/2022 left AMA 04/30/22 without treatment . Surgical History: Past Surgical History: Procedure Laterality Date APPENDECTOMY ARTHROPLASTY KNEE TOTAL ROBOTIC ASSISTED Right 01/08/2020 Procedure: Right Total Knee Replacement Robotic; Surgeon: Sofía Dukes MD; Location: Main OR; Service: Ortho-Robotics DEBRIDEMENT WITH WOUND CLOSURE POSS SKIN GRAFT LOWER EXTR Right 06/03/2023 Procedure: RIGHT LATERAL LEG Debridement with VERSAJET; Surgeon: ALEXEY Radford DPM; Location: Main OR; Service: Podiatry FOOT SURGERY Left MANDIBLE FRACTURE SURGERY ORTHOPEDIC SURGERY Right knee THORACIC DUCT LIGATION 01/15/2017 THORACIC DUCT LIGATION WOUND VAC Right 06/03/2023 Procedure: APPLICATION WOUND VAC; Surgeon: ALEXEY Radford DPM; Location: Main OR; Service: Podiatry . Social History: Social History Socioeconomic History Marital status: Single Tobacco Use Smoking status: Former Passive exposure: Current Smokeless tobacco: Current Types: Chew Vaping Use Vaping Use: Never used Substance and Sexual Activity Alcohol use: Not Currently Drug use: Not Currently Types: Marijuana Sexual activity: Not Currently Social History Narrative Merged History Encounter Merged History Encounter Family History: Family History Problem Relation Age of Onset Heart disease Mother Diabetes Mother Review of Systems: Pertinent positives and negatives as mentioned above, otherwise full review of systems is negative unless mentioned below: Patient currently denies Nausea/Vomiting/Fever/Chills/Shor tness of Breath/Chest Pain. Physical Examination: BP 114/66 Pulse 67 Temp 98.2 F (36.8 C) (Oral) Resp 16 Ht 6' Wt 108.9 kg (240 lb) SpO2 94% BMI 32.55 kg/m General Appearance: Alert, cooperative, no distress, appears stated age. Podiatric Exam Vascular: DP and PT pulses are faintly palpable. Cap refill time brisk to distal digits. Neurological: Gross sensation intact. Protective sensation diminished. Dermatologic: See images below. Musculoskeletal: Is able to wiggle digits. Compartments soft and compressible. No calf pain. Wound 05/18/23 Skin Tear Pre-tibial Left (Active) Reassessment Unchd 07/30/23 1300 Dressing Status Clean;Dry;Intact 07/30/23 1550 Dressing Changed Changed 07/30/23 1550 Wound Image 07/29/23 1319 Wound Length (cm) 1.5 cm 07/29/23 1319 Wound Width (cm) 1.3 cm 07/29/23 1319 Wound Depth (cm) 0.1 cm 07/29/23 1319 Wound 06/03/23 Surgical Wound Pre-tibial Right (Active) Reassessment Unchd 07/30/23 1300 Dressing Status Clean;Dry;Intact 07/30/23 1550 Dressing Changed Changed 07/30/23 1550 Wound Image 07/29/23 1315 Wound Length (cm) 16.5 cm 07/29/23 1315 Wound Width (cm) 8 cm 07/29/23 1315 Wound Depth (cm) 0.1 cm 07/29/23 1315 Wound 07/29/23 Knee Anterior;Right (Active) Reassessment Unchd 07/30/23 1300 Dressing Status Clean;Dry;Intact 07/30/23 1550 Dressing Changed Changed 07/30/23 1550 Wound Image 07/29/23 1316 Again, thank you for the opportunity to help care for your patient. Cecilia Gonzales Patient Name: Carmen Gilman MR #: [id number] : 1965 Physicians: Ani Worley, ENVIRONMENTAL EMERGENCIES PLANNER (Family); No ref. provider found (Referring) Chief complaint: Carmen Gilman is a 58 y.o. adult presented with not improving right leg ulceration and wound, and also with right knee drainage. History: I have reviewed the patient's past medical history, past surgical history, family history, social history. Patient is seen today, known with history of diabetes, right knee arthroplastic surgery, COPD, and opiate dependent, had previous wound debridement and closure and also had mandibular fracture surgery. I had the opportunity of seeing patient in May 2023,At that time patient had bilateral lower extremity ulceration with MSSA infection and venous stasis. She was also suspected of having prosthetic right knee infection. At that time patient was followed by the orthopedic surgeon, who had done a Versajet debridement of right lower extremity and also right knee synovial aspiration. Patient was later discharged on IV cefazolin for prolonged IV antibiotics. Patient presents on this visit with worsening history of nonhealing right leg wound, and still with drainage from the right knee, with worsening pain and swelling. Patient had originally presented to the wound clinic via his consulting group analyst, who had noted some drainage from the right knee and was sent for hospital admission. Patient did not have any history of fever, no chills, no history of fall, no trauma. Did not complain of any urinary symptoms, no cough or shortness of breath. He states that his VAC dressing has not been on, leading to his right leg wound not improving. Patient has had history of neutropenia's and then had a C-reactive protein of 5.2 since on this admission. He also had a wound culture on the right leg that was showing polymicrobial, CT scan of the right knee however showed enhancing fluid collection within the suprapatellar subcutaneous soft tissue concerning for an abscess, and small right knee joint effusion with synovial thickening. Patient is currently being evaluated for suspected right knee abscess, nonhealing right leg wound,And also for antibiotics management. Past Medical History: Diagnosis Date Anxiety Arrhythmia Arthritis Asthma COPD (chronic obstructive pulmonary disease) ([facility]) Diabetes ([facility]) Hypertension Opioid dependence ([facility]) Secondary adrenal insufficiency ([facility]) 04/30/2022 left AMA 04/30/22 without treatment Past Surgical History: Procedure Laterality Date APPENDECTOMY ARTHROPLASTY KNEE TOTAL ROBOTIC ASSISTED Right 01/08/2020 Procedure: Right Total Knee Replacement Robotic; Surgeon: Sofía Dukes MD; Location: Main OR; Service: Ortho-Robotics DEBRIDEMENT WITH WOUND CLOSURE POSS SKIN GRAFT LOWER EXTR Right 06/03/2023 Procedure: RIGHT LATERAL LEG Debridement with VERSAJET; Surgeon: ALEXEY Radford DPM; Location: Main OR; Service: Podiatry FOOT SURGERY Left MANDIBLE FRACTURE SURGERY ORTHOPEDIC SURGERY Right knee THORACIC DUCT LIGATION 01/15/2017 THORACIC DUCT LIGATION WOUND VAC Right 06/03/2023 Procedure: APPLICATION WOUND VAC; Surgeon: ALEXEY Radford DPM; Location: Main OR; Service: Podiatry Family History Problem Relation Age of Onset Heart disease Mother Diabetes Mother Social History Socioeconomic History Marital status: Single Tobacco Use Smoking status: Former Passive exposure: Current Smokeless tobacco: Current Types: Chew Vaping Use Vaping Use: Never used Substance and Sexual Activity Alcohol use: Not Currently Drug use: Not Currently Types: Marijuana Sexual activity: Not Currently Social History Narrative Merged History Encounter Merged History Encounter Travel History: None Animal Contact: None Medications: I have reviewed the patient's medications. Scheduled Meds: aspirin 81 mg Oral Daily diltiazem 240 mg Oral Daily gabapentin 400 mg Oral 4x daily heparin (porcine) 5,000 Units Subcutaneous Q8H CASSIUS lispro insulin 0-15 Units Subcutaneous at bedtime insulin lispro 0-30 Units Subcutaneous TID AC meloxicam 15 mg Oral Daily mometasone-formoterol 2 puff Inhalation BID pantoprazole 20 mg Oral Daily piperacillin-tazobactam (ZOSYN) extended infusion 3.375 g Intravenous Q8H predniSONE 5 mg Oral Daily sodium chloride (PF) 5 mL Intravenous Q8H CASSIUS vancomycin 1,250 mg Intravenous Q12H vancomycin per pharmacy 1 each Intravenous as indicated by pharmacokinetics Allergy Information: I have reviewed the patient's allergies. Patient has no known allergies. Review of Systems: Review of Systems Constitutional: Positive for fatigue. Negative for chills and fever. Respiratory: Negative for cough, shortness of breath and wheezing. Cardiovascular: Positive for leg swelling. Negative for chest pain and palpitations. Gastrointestinal: Negative for abdominal distention, abdominal pain, constipation, diarrhea, nausea and vomiting. Endocrine: Negative for polydipsia, polyphagia and polyuria. Genitourinary: Negative for dysuria, flank pain, frequency and hematuria. Musculoskeletal: Positive for joint swelling. Negative for neck pain and neck stiffness. Skin: Positive for wound. Negative for color change, pallor and rash. Neurological: Positive for weakness. Negative for dizziness, numbness and headaches. Psychiatric/Behavioral: Negative for confusion. Labs: Lab Results Component Value Date WBC 2.56 (L) 07/30/2023 HGB 10.1 (L) 07/30/2023 HCT 32.4 (L) 07/30/2023 MCV 70.1 (L) 07/30/2023 PLT 105 (L) 07/30/2023 Lab Results Component Value Date HGBA1C 4.7 07/30/2023 Lab Results Component Value Date SEDRATE 12 07/30/2023 Lab Results Component Value Date CRP 5.2 07/30/2023 Radiology: CT Knee Right With Contrast Final Result 1. There is a 2.8 x 2.5 cm rim-enhancing fluid collection within the suprapatellar subcutaneous soft tissues, concerning for an abscess. No soft tissue air is seen. 2. Small right knee joint effusion with synovial thickening. This likely communicates with the aforementioned suspected abscess. Consider arthrocentesis to evaluate for septic arthritis, as clinically indicated. 3. Edema throughout the right lower extremity subcutaneous tissues, which could represent cellulitis. [employer] Workstation ID: [id number] Physical Examination: Vital Signs: BP 124/73 Pulse 71 Temp 97.8 F (36.6 C) (Oral) Resp 16 Ht 6' Wt 108.9 kg (240 lb) SpO2 94% BMI 32.55 kg/m Physical Exam Constitutional: Appearance: He is well-developed. He is obese. He is ill-appearing. HENT: Head: Normocephalic. Eyes: General: Right eye: No discharge. Left eye: No discharge. Cardiovascular: Rate and Rhythm: Normal rate and regular rhythm. Heart sounds: Normal heart sounds. Pulmonary: Effort: No respiratory distress. Breath sounds: No wheezing or rales. Chest: Chest wall: No tenderness. Abdominal: General: There is no distension. Tenderness: There is no abdominal tenderness. There is no rebound. Musculoskeletal: General: Swelling and tenderness present. Cervical back: Normal range of motion and neck supple. Right lower leg: Edema present. Left lower leg: Edema present. Comments: Right lower extremity the leg area with shallow ulceration, clean site, and granulating ulcer. Mild discharge. Right knee with 2 spots of ulceration with yellowish drainage. Left leg with some mild ulceration, dry skin. Skin: General: Skin is warm. Coloration: Skin is not pale. Findings: Rash present. Neurological: Mental Status: He is oriented to person, place, and time. Psychiatric: Behavior: Behavior normal. Thought Content: Thought content normal. Assessment and Plan: Patient with 1. Right lower extremity nonhealing wound 2. Right Knee abscess 3. Chronic hepatitis C,( negative hepatitis C RNA.) 4. Bilateral lower extremity edema. Plan. Continue patient on current therapy Patient currently on IV Zosyn Patient on IV vancomycin DC IV vancomycin if negative MRSA. Get culture from the right knee drainage. I reviewed blood cultures with no growth I reviewed wound culture from the lower right leg with polymicrobial Follow-up ESR, C-reactive protein I reviewed CT scan of the right knee, with 2.8 x 2.5 cm ream and seen fluid collection and the suprapatellar area, concerning for abscess, as the right small joint effusion with synovial thickening noted. Podiatry evaluation recommended. Get orthopedic evaluation. Continue dressing as per consulting group analyst recommendation. We will continue to follow with you. Problem List Items Addressed This Visit None Visit Diagnoses Wound cellulitis - Primary I have taken time to review patient's information and having discussions, I appreciate seeing your patient, will continue to follow with you, and adjust with more information. Medical decision making: Moderate Drug Rx requiring intensive monitoring for toxicity and side effects; Extensive discussion regarding a diagnosis and multiple treatment options. This note is created with the assistance of a speech-recognition program. While intending to generate a document that actually reflects the content of the visit, the document can still have some errors including those of syntax and sound a- like substitutions which may escape proofreading. In such instances, actual meaning can be extrapolated by contextual derivation. documented in this encounter [facility] 07-30-2023 Emergency department Note Repositioned patient Images from the original note were not included. [facility] ED WHIT Note: NAME: Carmen Gilman 58 y.o. CSN: [id number] PCP: Ani Worley CNP History: Chief Complaint: Wound Check HPI: The history was obtained from the patient. Carmen is a 58 y.o. adult who presents with a chief complaint of Wound Check. Patient has a history of COPD, diabetes, hypertension and polysubstance abuse. Presents to the emergency department today from Dr. Gonzales's office for admission for concern for infection of the right lower extremity. Patient has been receiving oral clindamycin for a wound to the top of the knee. He had right knee arthroplasty in 2019. Over the last couple weeks, he has noticed some opening at the superior end of the surgical scar. Notes the area has some pus coming out with surrounding erythema. Denies any pain in the knee joint itself. He also has a chronic wound to the lateral side of his right lower extremity that he follows with Dr. Gonzales. Patient had recent positive blood culture results of rare gram-positive bacilli and increased greenish drainage from the lateral leg wound with concern of wound worsening. Patient states he has not been feeling well however does not believe he has had a fever or chills. No chest pain, shortness of breath or dizziness. PMHx: Past Medical History: Diagnosis Date Anxiety Arrhythmia Arthritis Asthma COPD (chronic obstructive pulmonary disease) ([facility]) Diabetes ([facility]) Hypertension Opioid dependence ([facility]) Secondary adrenal insufficiency ([facility]) 04/30/2022 left AMA 04/30/22 without treatment PMSx: Past Surgical History: Procedure Laterality Date APPENDECTOMY ARTHROPLASTY KNEE TOTAL ROBOTIC ASSISTED Right 01/08/2020 Procedure: Right Total Knee Replacement Robotic; Surgeon: Sofía Dukes MD; Location: Main OR; Service: Ortho-Robotics DEBRIDEMENT WITH WOUND CLOSURE POSS SKIN GRAFT LOWER EXTR Right 06/03/2023 Procedure: RIGHT LATERAL LEG Debridement with VERSAJET; Surgeon: ALEXEY Radford DPM; Location: Main OR; Service: Podiatry FOOT SURGERY Left MANDIBLE FRACTURE SURGERY ORTHOPEDIC SURGERY Right knee THORACIC DUCT LIGATION 01/15/2017 THORACIC DUCT LIGATION WOUND VAC Right 06/03/2023 Procedure: APPLICATION WOUND VAC; Surgeon: ALEXEY Radford DPM; Location: Main OR; Service: Podiatry FAM. Hx: Family History Problem Relation Age of Onset Heart disease Mother Diabetes Mother SOC. Hx: Social History Socioeconomic History Marital status: Single Tobacco Use Smoking status: Former Passive exposure: Current Smokeless tobacco: Current Types: Chew Vaping Use Vaping Use: Never used Substance and Sexual Activity Alcohol use: Not Currently Drug use: Not Currently Types: Marijuana Sexual activity: Not Currently Social History Narrative Merged History Encounter Merged History Encounter MEDs: Previous Medications Medication Sig albuterol (PROVENTIL) 2.5 mg /3 mL (0.083 %) nebulizer solution Take 3 mL (2.5 mg total) by nebulization every 6 (six) hours as needed for wheezing . albuterol 90 mcg/actuation inhaler Inhale 2 (two) puffs every 6 (six) hours as needed for wheezing . aspirin 81 MG EC tablet Take 1 (one) tablet (81 mg total) by mouth daily . clindamycin (CLEOCIN) 300 MG capsule Take 450 mg by mouth 3 (three) times a day . Combivent Respimat 20-100 mcg/actuation Mist Inhale 1 (one) puff to 2 (two) puffs every 4 to 6 hours as needed . diazePAM (VALIUM) 5 MG tablet Take 1 (one) tablet (5 mg total) by mouth daily as needed (benzo wean) . diltiazem (TIAZAC) 240 MG 24 hr capsule Take 1 (one) capsule (240 mg total) by mouth daily . gabapentin (NEURONTIN) 400 MG capsule Take 1 (one) capsule (400 mg total) by mouth 4 (four) times a day . meloxicam (MOBIC) 15 MG tablet Take 1 (one) tablet (15 mg total) by mouth daily . naloxone (NARCAN) 4 mg/actuation [place] Administer 1 spray into one nostril for known or suspected opioid overdose. If patient worsens or does not respond, may repeat in 2-3 minutes. . oxyCODONE (ROXICODONE) 5 MG immediate release tablet Take 2 (two) tablets (10 mg total) by mouth See Admin Instructions Pre-medicate with 10 mg of oxycodone 1 hour prior to dressing change Mondays and Wednesdays. Give dose Fridays before transport to wound clinic. Space this dose out from prn narcotics to avoid sedation. . pantoprazole (PROTONIX) 20 MG tablet Take 1 (one) tablet (20 mg total) by mouth daily Start: 01/09/20. predniSONE (DELTASONE) 5 MG tablet Take 1 (one) tablet (5 mg total) by mouth daily . Symbicort 160-4.5 mcg/actuation inhaler Inhale 2 (two) puffs 2 (two) times a day . ALL: No Known Allergies ROS: Positives and pertinent negatives as per HPI. All other systems were reviewed and are negative. Physical Exam: Patient Vitals for the past 24 hrs: BP Temp Temp src Pulse Resp SpO2 Height Weight 07/29/23 1800 -- -- -- -- (!) 22 -- -- -- 07/29/23 1441 (!) 157/81 99 F (37.2 C) Oral 90 18 93 % -- -- 07/29/23 1411 -- -- -- -- -- -- 6' 108.9 kg (240 lb) Physical Exam Vitals and nursing note reviewed. Constitutional: General: He is not in acute distress. Appearance: Normal appearance. He is well-developed. He is ill-appearing. He is not toxic-appearing. HENT: Head: Normocephalic and atraumatic. Nose: Nose normal. Eyes: General: No scleral icterus. Conjunctiva/sclera: Conjunctivae normal. Cardiovascular: Rate and Rhythm: Normal rate and regular rhythm. Pulses: Dorsalis pedis pulses are 2+ on the right side and 2+ on the left side. Heart sounds: No murmur heard. Musculoskeletal: Right lower leg: No swelling. No edema. Left lower leg: No swelling. No edema. Pulmonary: Effort: Pulmonary effort is normal. No respiratory distress. Breath sounds: Normal breath sounds and air entry. Abdominal: General: Abdomen is flat. Bowel sounds are normal. There is no distension. Palpations: Abdomen is soft. Tenderness: There is no abdominal tenderness. Skin: General: Skin is warm and dry. Findings: No rash. Neurological: Mental Status: He is alert and oriented to person, place, and time. Psychiatric: Behavior: Behavior normal. Behavior is cooperative. Laboratory & Radiological Imaging (if done): Labs Reviewed BASIC METABOLIC PANEL - Abnormal; Notable for the following components: Result Value Anion Gap 7 (*) Glucose 140 (*) BUN/Creatinine Ratio 24.6 (*) Calcium 8.2 (*) All other components within normal limits Narrative: [facility] Services has implemented the eGFR calculation approach that does not have a coefficient for race that conforms to the NKF-ASN Task Force Recommendations. SEDIMENTATION RATE - Abnormal; Notable for the following components: Sed Rate 31 (*) All other components within normal limits CBC WITH AUTO DIFFERENTIAL - Abnormal; Notable for the following components: WBC 2.74 (*) RBC 4.39 (*) Hemoglobin 9.7 (*) Hematocrit 30.8 (*) MCV 70.2 (*) MCH 22.1 (*) Platelets 100 (*) RDW - CV 15.8 (*) Lymphocytes Abs 0.49 (*) Monocytes Abs 0.22 (*) All other components within normal limits CRP, INFLAMMATION - Normal BLOOD CULTURE AEROBIC/ANAEROBIC BLOOD CULTURE AEROBIC/ANAEROBIC CBC AND DIFFERENTIAL Narrative: The following orders were created for panel order CBC w/ Diff. Procedure Abnormality Status --------- ------ CBC Auto Differential[[id number]] Abnormal Final result Please view results for these tests on the individual orders. LACTIC ACID, PLASMA CT Knee Right With Contrast (Results Pending) MDM: Medical Decision Making Problems Addressed: Wound cellulitis: acute illness or injury Amount and/or Complexity of Data Reviewed Labs: ordered. Decision-making details documented in ED Course. Radiology: ordered. Decision-making details documented in ED Course. ED Course as of 07/29/231839Jul 29, 2023 1734 CRP: 5.6 [RH] 1734 Sodium: 137 [RH] 1734 Potassium: 3.9 [RH] 1734 BUN: 15 [RH] 1734 Creatinine: 0.61 [RH] 1734 eGFR: 112 [RH] 1756 Sed Rate(!): 31 [RH] 1837 Patient will be admitted to the hospitalist for concern of right lateral leg infection and positive blood culture preliminary report was completed in outside facility. I am unable to access these blood cultures the cultures were repeated here today. White count is 2.7, CRP and sed rate unremarkable. Patient started on broad-spectrum antibiotics. Pending CT imaging of the right knee with contrast. [RH] ED Course User Index [RH] Uyen Casiano CNP Clinical Impression: 1. Wound cellulitis Disposition: Patient is being admitted. Uyen Casiano CNP ED Advanced Practice Provider [facility] Emergency Department (Please note that portions of this note have been completed with a voice recognition software. Efforts were made to correct any errors, but occasionally words are mis-transcribed.) Uyen Casiano CNP 07/29/231839 Pt presents to ER from wound care for open wound check to R knee, reports wound being for a couple days. Stated drainage from site. documented in this encounter [facility] 07-29-2023 History and physical note [facility] [place] [facility] Patient Name: Carmen Gilman : 1965 MR #: [id number] Admit Date: 07/29/2023 Physicians: Ani Worley CNP (Family); No ref. provider found (Referring) Carmen Gilman is a 58 y.o. adult patient of Ani Worley CNP with history of hypertension hyperlipidemia desmitis and history of chronic obstructive pulmonary disease, is known for adrenal insufficiency is maintained prednisone pills and, history of opiate dependency previously on Suboxone, also known for cirrhosis history of atrial fibrillation, chronic lower extremity wounds in the top of chronic venous stasis dermatitis, Right lateral leg full-thickness ulcer s/p hematoma evacuation in April, and required hospitalization May and S/P Versajet debridement of right lateral full-thickness ulcer 06/03, required wound VAC and given antibiotics was discharged on IV cefazolin for 3 weeks, chronic pain syndrome, also known for complex right suprapatellar joint effusion status post right total knee replacement required aspiration by Dr. Dukes in May culture showed no growth at that time is not for chronic right-sided heart failure with pulm hypertension has preserved systolic function ejection fraction 61%, known for hepatitis C liver cirrhosis with portal hypertension and esophageal varices, pancytopenia is here due to wounds in the lower extremity with drainage and pain concern of superimposed infection and reported recent positive growth from the wound and blood concern of history of bacteremia is admitted for IV antibiotics Right lower extremity wounds Present at the area above the right ankle, also above the right knee Known for chronic lower extremity wounds in the top of chronic venous stasis dermatitis, Right lateral leg full-thickness ulcer s/p hematoma evacuation in April, and required hospitalization May and S/P Versajet debridement of right lateral full-thickness ulcer 06/03, required wound VAC and given antibiotics was discharged on IV cefazolin for 3 weeks Will continue broad-spectrum antibiotics vancomycin and Zosyn Blood cultures were collected through the emergency department and follow results Podiatry infectious disease consults were placed complex right suprapatellar joint effusion status post right total knee replacement required aspiration by Dr. Dukes in May culture showed no growth at that time Also presents with draining wound at that area Pending CAT scan of the right knee Consider orthopedic consult in the morning pending CAT scan results On antibiotics now Chronic pain syndrome History of opioid dependency Previously on Suboxone not anymore Taking Percocet as needed Diabetes mellitus Will monitor blood glucose and insulin sliding scale and place the patient on carb controlled diet History of atrial fibrillation Is off of anticoagulation taking Cardizem CD 240 mg daily heart rate is controlled Chronic adrenal insufficiency Is maintained on oral prednisone 5 mg daily Chronic obstructive pulmonary disease Stable without evidence of exacerbation Peripheral neuropathy Is maintained on gabapentin Residence prior to admission: house or apartment Was patient transferred from outlying hospital or ED no Quality Measures DVT Prophylaxis: heparin subcutaneous Tavera Catheter: absent Medication Reconciliation: Verified Risk variables present on admission: None. Please see assessment and plan for further details. Estimated Date of Discharge greater than 2 midnights Code Status Full Code; code status verified on 07/29/2023 Chief Complaint right lower extremity wounds History of Present Illness Carmen Gilman is a 58 y.o. adult patient of Ani Worley CNP with history of hypertension hyperlipidemia desmitis and history of chronic obstructive pulmonary disease, is known for adrenal insufficiency is maintained prednisone pills and, history of opiate dependency previously on Suboxone, also known for cirrhosis history of atrial fibrillation, chronic lower extremity wounds in the top of chronic venous stasis dermatitis, Right lateral leg full-thickness ulcer s/p hematoma evacuation in April, and required hospitalization May and S/P Versajet debridement of right lateral full-thickness ulcer 06/03, required wound VAC and given antibiotics was discharged on IV cefazolin for 3 weeks, chronic pain syndrome, also no focal complex right suprapatellar joint effusion status post right total knee replacement required aspiration by Dr. Dukes in May culture showed no growth at that time is not for chronic right-sided heart failure with pulm hypertension has preserved systolic function ejection fraction 61%, known for hepatitis C liver cirrhosis with portal hypertension and esophageal varices, pancytopenia is here due to wounds in the lower extremity with drainage and pain concern of superimposed infection and reported recent positive growth from the wound and blood concern of history of bacteremia is admitted for IV antibiotics, Presents to the emergency department today from Dr. Gonzales's office for admission for concern for infection of the right lower extremity. Patient has been receiving oral clindamycin for a wound to the top of the knee. He had right knee arthroplasty in 2019. Over the last couple weeks, he has noticed some opening at the superior end of the surgical scar. Notes the area has some pus coming out with surrounding erythema. Denies any pain in the knee joint itself. He also has a chronic wound to the lateral side of his right lower extremity that he follows with Dr. Gonzales. Patient had recent positive blood culture results of rare gram-positive bacilli and increased greenish drainage from the lateral leg wound with concern of wound worsening. Patient states he has not been feeling well however does not believe he has had a fever or chills. No chest pain, shortness of breath or dizziness. Past Medical History Past Medical History: Diagnosis Date Anxiety Arrhythmia Arthritis Asthma COPD (chronic obstructive pulmonary disease) ([facility]) Diabetes ([facility]) Hypertension Opioid dependence ([facility]) Secondary adrenal insufficiency ([facility]) 04/30/2022 left AMA 04/30/22 without treatment Past Surgical History Past Surgical History: Procedure Laterality Date APPENDECTOMY ARTHROPLASTY KNEE TOTAL ROBOTIC ASSISTED Right 01/08/2020 Procedure: Right Total Knee Replacement Robotic; Surgeon: Sofía Dukes MD; Location: Main OR; Service: Ortho-Robotics DEBRIDEMENT WITH WOUND CLOSURE POSS SKIN GRAFT LOWER EXTR Right 06/03/2023 Procedure: RIGHT LATERAL LEG Debridement with VERSAJET; Surgeon: AELXEY Radford DPM; Location: Main OR; Service: Podiatry FOOT SURGERY Left MANDIBLE FRACTURE SURGERY ORTHOPEDIC SURGERY Right knee THORACIC DUCT LIGATION 01/15/2017 THORACIC DUCT LIGATION WOUND VAC Right 06/03/2023 Procedure: APPLICATION WOUND VAC; Surgeon: ALEXEY Radford DPM; Location: Main OR; Service: Podiatry Family History Family History Problem Relation Age of Onset Heart disease Mother Diabetes Mother Social History Social History Tobacco Use Smoking Status Former Passive exposure: Current Smokeless Tobacco Current Types: Chew Social History Substance and Sexual Activity Alcohol Use Not Currently Social History Substance and Sexual Activity Drug Use Not Currently Types: Marijuana Allergy Information I have reviewed the patient's allergies. Patient has no known allergies. Home Medications Home medications were reviewed. Review Of Systems All relevant systems have been reviewed and are negative except as noted in HPI or below Physical Examination BP (!) 157/81 Pulse 90 Temp 99 F (37.2 C) (Oral) Resp (!) 22 Ht 6' Wt 108.9 kg (240 lb) SpO2 93% BMI 32.55 kg/m General Appearance: alert; acutely ill appearing; in no acute distress HEENT: Head- normocephalic; Eyes- EOMI, sclera anicteric; Throat- mucous membranes moist Cardiovascular: regular rate and rhythm; normal S1, S2; no murmurs, rubs, clicks or gallops; peripheral edema absent Respiratory: lungs clear to auscultation; without wheezes, rales or rhonchi; on room air Abdomen: soft, non-tender, non-distended Neurological: oriented x 3; normal speech; no focal findings or movement disorder noted Musculoskeletal: no significant deformity or tenderness to palpation Skin: Right leg and right knee wounds Psych: normal mood and affect documented in this encounter [facility] 07-29-2023 History of Present illness Narrative Called ER staff re Dr Gonzales advising pt to come to ER for suspected R knee abscess. Pt to come through triage as ER pt . Associated Order(s): Wound Debridement Post-Procedure Diagnose(s): Ulcer of left lower extremity with fat layer exposed (HCC) Images from the original note were not included. Podiatry wound clinic VISIT Cecilia Gonzales DPM Patient Name: Carmen Gilman. . Date of : 1965, 58 y.o.. Gender: male. Author: Cecilia Gonzales Subjective: Patient is a 58-year-old male presents to wound clinic for treatment management of bilateral leg wounds. Patient skipped at the last clinic visit stating that he was not feeling well. Patient reports that he has a hole in his right knee that the facility has been treating in the last week. The facility doctor has placed him on oral clindamycin. Patient continues to have swelling, redness and pain to the right knee. Dressing has been also changed to the right and left legs. Denies any recent trauma or injury. Denies fevers, chills, nausea, vomiting, chest pain, shortness of breath, or any other constitutional symptoms. Review of Systems: Pertinent positives and negatives as mentioned above, otherwise full review of systems is negative unless mentioned below: Patient currently denies Nausea/Vomiting/Fever/Chills/Shor tness of Breath/Chest Pain. Physical Examination: BP 138/78 Pulse 89 Temp 98.7 F (37.1 C) (Infrared) Resp 18 SpO2 94% General Appearance: Alert, cooperative, no distress, appears stated age. Podiatric Exam Vascular: DP and PT pulses are palpable 2 of 4. Capillary refill time is less than 3 seconds to distal digits. Skin temperature is warm to warm from proximal tibial tuberosity to distal digit. Bilateral lower extremity edema, worse on the right. Neurological: Gross sensation is intact. Protective sensation is intact. Babinski's is normal. Dermatologic: See images below Musculoskeletal: Compartments soft and compressible. No calf pain of fullness. Muscle strength 5/5 Wound 06/03/23 Surgical Wound Pre-tibial Right (Active) Wound Image 06/17/23 0914 Wound Length (cm) 20 cm 06/17/23 0914 Wound Width (cm) 9.8 cm 06/17/23 0914 Wound Depth (cm) 0.1 cm 06/17/23 0914 Wound 05/18/23 Skin Tear Pre-tibial Left (Active) Wound Image 07/08/23 1333 Wound Length (cm) 2.5 cm 07/08/23 1333 Wound Width (cm) 1.8 cm 07/08/23 1333 Wound Depth (cm) 0.1 cm 07/08/23 1333 Wound 06/03/23 Surgical Wound Pre-tibial Right (Active) Wound Image 07/08/23 1334 Wound Length (cm) 16 cm 07/08/23 1334 Wound Width (cm) 8.5 cm 07/08/23 1334 Wound Depth (cm) 0.1 cm 07/08/23 1334 Wound 05/18/23 Skin Tear Pre-tibial Left (Active) Wound Image 07/15/23 0744 Wound Length (cm) 2.5 cm 07/15/23 0744 Wound Width (cm) 1.5 cm 07/15/23 0744 Wound Depth (cm) 0.1 cm 07/15/23 0744 Wound 06/03/23 Surgical Wound Pre-tibial Right (Active) Wound Image 07/15/23 0743 Wound Length (cm) 16 cm 07/15/23 0743 Wound Width (cm) 8.5 cm 07/15/23 0743 Wound Depth (cm) 0.1 cm 07/15/23 0743 Wound 07/15/23 Calf Right (Active) Wound Image 07/15/23 0744 Wound Progress Initial exam 07/15/23 0748 State of Healing Fully granulated 07/15/23 0748 Non-staged Wound Description Partial thickness 07/15/23 0748 Wound 05/18/23 Skin Tear Pre-tibial Left (Active) Wound Image 07/29/23 1319 Wound Length (cm) 1.5 cm 07/29/23 1319 Wound Width (cm) 1.3 cm 07/29/23 1319 Wound Depth (cm) 0.1 cm 07/29/23 1319 Wound 06/03/23 Surgical Wound Pre-tibial Right (Active) Wound Image 07/29/23 1315 Wound Length (cm) 16.5 cm 07/29/23 1315 Wound Width (cm) 8 cm 07/29/23 1315 Wound Depth (cm) 0.1 cm 07/29/23 1315 Wound 07/29/23 Knee Anterior;Right (Active) Wound Image 07/29/23 1316 Assessment: Abscess and open wound, right knee L medial leg full-thickness ulcer R lateral leg full-thickness ulcer s/p Versajet debridement (date of surgery 06/03/2023). Plan: Patient was seen and evaluated. Discussed all clinical findings Patient has a new open wound to the right knee concerning for an underlying abscess. Serous drainage, redness and pain is noted. Discussed with patient that this is concerning for an infection that can affect his underlying knee replacement hardware. Discussed with patient that he will need to be taken to the emergency department for evaluation and management. At the facility, recent blood culture result prelim results of a rare gram-positive bacilli. Discussed with patient he will need to get started on IV antibiotics and for Dr. Dukes to evaluate him accordingly. Regarding patient's right lateral leg wound, extensive greenish drainage is noted today concerning for Pseudomonas. A wound swab culture was obtained and sent to microbiology for culture and sensitivity. This wound has worsened in terms of wound bed quality and appearance. No debridement was performed today secondary to pain. Applied a Vashe wet-to-dry to the right leg wound. Moreover, on the left leg, patient's wound is improving in terms of size nevertheless, the wound bed requires excisional debridement to remove nonviable soft tissue and biofilm. Following debridement applied Gavino and dry sterile dressing. Teddy bandage from toes to knee. This dressing is to be applied once every other day. Patient will be taken to the emergency department following our wound care visit. I will continue to follow patient while in the hospital. Debridement Consent obtained? verbal Consent given by: patient Risks discussed? procedural risks discussed Immediately prior to the procedure a time out was called Performed by: physician Debridement type: surgical Level of debridement: subcutaneous tissue Post-debridement measurements Length (cm): 1.5 Width (cm): 1.5 Depth (cm): 0.3 Percent debrided: 100% Surface Area (cm^2): 2.25 Area debrided (cm^2): 2.25 Volume (cm^3): 0.68 Tissue and other material debrided: subcutaneous tissue Devitalized tissue debrided: biofilm, fibrin and slough Instrument(s) utilized: curette Bleeding: small Hemostasis obtained with: pressure Response to treatment: procedure was tolerated well documented in this encounter [facility] 07-29-2023 Instructions Jolanta Jones RN - 07/29/2023 1:57 PM EST 1. Take swab culture of right leg wound done here in the clinic 2. Dakin wet to dry to right leg wound 3. Dry dressing to right knee wound 4. Gavino and dsd to left leg wound documented in this encounter [facility] 07-19-2023 History of Present illness Narrative Patient called his right knee is swelling again. Would Dr Dukes drain again, last time 06/[address] Dukes said yes. Called patient he can't get a ride this week to office so would like Dr Dukes to drain when he is admitted to hospital beginning of July for a skin graft. documented in this encounter [facility] 07-15-2023 History of Present illness Narrative Associated Order(s): Wound Debridement Post-Procedure Diagnose(s): Wound of right leg, subsequent encounter; Ulcer of left lower extremity with fat layer exposed (HCC) Images from the original note were not included. Podiatry wound clinic VISIT Cecilia Gonzales DPM Patient Name: Carmen Gilman. . Date of : 1965, 58 y.o.. Gender: male. Author: Cecilia Gonzales Subjective: Patient is a 57-year-old male presents to wound clinic for treatment management of bilateral leg wounds. Right leg wound has been maintained with the wound VAC. Patient is being premedicated prior to coming to wound clinic as he does have significant pain with dressing changes. Patient reports that he took a 1 day past away from the nursing facility yesterday (Thanksgiving) and reports that he has been going up and down steps and has been walking with his walker. He was also started on antibiotics due to cellulitis of the right leg. No new injury or trauma. Denies fevers, chills, nausea, vomiting, chest pain, shortness of breath, or any other constitutional symptoms. Review of Systems: Pertinent positives and negatives as mentioned above, otherwise full review of systems is negative unless mentioned below: Patient currently denies Nausea/Vomiting/Fever/Chills/Shor tness of Breath/Chest Pain. Physical Examination: BP (!) 162/91 Pulse 93 Temp 98.7 F (37.1 C) Resp 18 SpO2 95% General Appearance: Alert, cooperative, no distress, appears stated age. Podiatric Exam Vascular: DP and PT pulses are palpable 2 of 4. Capillary refill time is less than 3 seconds to distal digits. Skin temperature is warm to warm from proximal tibial tuberosity to distal digit. Bilateral lower extremity edema, worse on the right. Neurological: Gross sensation is intact. Protective sensation is intact. Babinski's is normal. Dermatologic: See images below Musculoskeletal: Compartments soft and compressible. No calf pain of fullness. Muscle strength 5/5 Wound 06/03/23 Surgical Wound Pre-tibial Right (Active) Wound Image 06/17/23 0914 Wound Length (cm) 20 cm 06/17/23 0914 Wound Width (cm) 9.8 cm 06/17/23 0914 Wound Depth (cm) 0.1 cm 06/17/23 0914 Wound 05/18/23 Skin Tear Pre-tibial Left (Active) Wound Image 07/08/23 1333 Wound Length (cm) 2.5 cm 07/08/23 1333 Wound Width (cm) 1.8 cm 07/08/23 1333 Wound Depth (cm) 0.1 cm 07/08/23 1333 Wound 06/03/23 Surgical Wound Pre-tibial Right (Active) Wound Image 07/08/23 1334 Wound Length (cm) 16 cm 07/08/23 1334 Wound Width (cm) 8.5 cm 07/08/23 1334 Wound Depth (cm) 0.1 cm 07/08/23 1334 Wound 05/18/23 Skin Tear Pre-tibial Left (Active) Wound Image 07/15/23 0744 Wound Length (cm) 2.5 cm 07/15/23 0744 Wound Width (cm) 1.5 cm 07/15/23 0744 Wound Depth (cm) 0.1 cm 07/15/23 0744 Wound 06/03/23 Surgical Wound Pre-tibial Right (Active) Wound Image 07/15/23 0743 Wound Length (cm) 16 cm 07/15/23 0743 Wound Width (cm) 8.5 cm 07/15/23 0743 Wound Depth (cm) 0.1 cm 07/15/23 0743 Wound 07/15/23 Calf Right (Active) Wound Image 07/15/23 0744 Wound Progress Initial exam 07/15/23 0748 State of Healing Fully granulated 07/15/23 0748 Non-staged Wound Description Partial thickness 07/15/23 0748 Assessment: L medial leg full-thickness ulcer Venous stasis dermatitis R lateral leg full-thickness ulcer s/p Versajet debridement (date of surgery 06/03/2023). Limited mobility Plan: Patient was seen and evaluated. Discussed all clinical findings Patient has developed new wounds on the right lower extremity and some no excoriations. The area surrounding the large right leg wound is edematous and therefore the wound VAC will be held for 1 week. Applied Xeroform, 4 x 4, Kerlix and Teddy bandage from toes to knee on the right lower extremity. This dressing is to be changed once daily. No debridement at this site. On the left leg, patient's wound is improving in terms of size nevertheless, the wound bed requires excisional debridement to remove nonviable soft tissue and biofilm. Following debridement applied Gavino and dry sterile dressing. Teddy bandage from toes to knee. This dressing is to be applied once every other day. Patient is instructed to elevate bilateral legs and to minimize weightbearing. Physical therapy will be held at this time. These instructions were communicated with patient's nurse at [facility] Debridement Consent obtained? verbal Consent given by: patient Risks discussed? procedural risks discussed Performed by: physician Debridement type: surgical Level of debridement: subcutaneous tissue Pain control: lidocaine 2% Post-debridement measurements Length (cm): 2.5 Width (cm): 1.5 Depth (cm): 0.3 Percent debrided: 100% Surface Area (cm^2): 3.75 Area debrided (cm^2): 3.75 Volume (cm^3): 1.13 Tissue and other material debrided: subcutaneous tissue Devitalized tissue debrided: biofilm, fibrin and slough Instrument(s) utilized: curette Bleeding: small Hemostasis obtained with: pressure Response to treatment: procedure was tolerated well documented in this encounter [facility] 07-15-2023 Instructions Marisela Marquez RN - 07/15/2023 8:46 AM EST Xeroform to wound bed then saline wet to dry - Right leg Gavino and dsd - Left leg Teddy bilaterally Change Tuesday, Tuesday, tuesday F/u 1 week documented in this encounter [facility] 07-08-2023 Instructions Marisela Marquez RN - 07/08/2023 2:27 PM EST Wound vac on the right (temporary ns moist gauze placed at wound care.) Facility to place npwt today upon patient return. Iodoflex to left medial leg ulcer, secured with 4 x 4 gauze kerlix Teddy. Change Tuesday, Tuesday, tuesday documented in this encounter [facility] 07-08-2023 History of Present illness Narrative Associated Order(s): Wound Debridement Post-Procedure Diagnose(s): Ulcer of left lower extremity with fat layer exposed (HCC) Images from the original note were not included. Podiatry wound clinic VISIT Cecilia Gonzales DPM Patient Name: Carmen Gilman. . Date of : 1965, 57 y.o.. Gender: male. Author: Cecilia Gonzales Subjective: Patient is a 57-year-old male presents to wound clinic for treatment management of bilateral leg wounds. Right leg wound has been maintained with the wound VAC. Patient is being premedicated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 not in acute distress. Appearance: He is obese. He is ill-appearing. He is not diaphoretic. Interventions: Nasal cannula in place. HENT: Head: Normocephalic and atraumatic. Eyes: Conjunctiva/sclera: Conjunctivae normal. Cardiovascular: Rate and Rhythm: Normal rate. Pulmonary: Effort: No accessory muscle usage or respiratory distress. Chest: Chest wall: No tenderness. Skin: Capillary Refill: Capillary refill takes less than 2 seconds. Findings: No rash. Comments: Teddy wraps in place bilaterally Neurological: Mental Status: He is alert and oriented to person, place, and time. Psychiatric: Mood and Affect: Mood normal. Behavior: Behavior normal. Thought Content: Thought content normal. OARRS/NARxCHECK Report Received and Assessed: 05/24/2023 Date controlled substance agreement signed: No data found Date of last drug screen: No data found Functional Assessment: No data found Please note: Portions of this chart may have been created with [employer] voice recognition software. Occasional wrong-word or "sound-like" substitutions may have occurred due to inherent limitations of the voice recognition software. Please read the chart carefully and recognize, using context, where the substitutions have occurred. Electronically signed by: Nathan Collins M.D. documented in this encounter [facility] 04-26-2023 History of Present illness Narrative To all lower leg wounds, applied Aquacel Ag's and ABD's. To bilateral lower legs, applied triamcinolone, pink unna boots and coban. Pt tolerated well. Cap refill brisk. RLE completed by Vangie Lombardo LPN and LLE completed by Muna Gordillo RN. documented in this encounter [facility] 04-18-2023 History of Present illness Narrative Review of Systems A complete review of systems are negative except those consistent with HPI No fevers, chills or sweats No cough, chest pain No dysphagia, odynophagia No abdominal pain, nausea, vomiting, diarrhea No dysuria, frequency, hematuria No headache, dizziness, focal neurologic complaints No ear pain No sinus pain No rash No weight loss No joint or muscular pain Recent travel history?No HPI Cramen Gilman 57 y.o. male presents today for Follow-up (Left leg cellulitis) Carmen Gilman 57 y.o. male with a history of multiple medical problems including a history of hepatitis-C status post recent completion of therapy, alcohol and drug use, cirrhosis with varices as well as lower extremity lymphedema and wounds. Patient had recent hospitalization and was discharged on 03/03 with a history of trauma to his left lower extremity with wound and complications of cellulitis. Patient was treated in the hospital with IV antibiotics and deescalated to Keflex on discharge. Additional history includes malnutrition, obesity, leg edema with recurrent infections, cocaine use, marijuana use, pancytopenia for which he is seen Hematology, asthma/COPD. No known allergies to antibiotics or other medications. Patient has a history of ongoing marijuana use, during recent admission was found to be positive for cocaine although he denies any current drug use or alcohol use. Patient has had a difficult social situation where he lives in a house with other people and states it is difficult to keep his legs dressed and clean. Who states lately he is had the live in his car the last 2 or 3 days. Patient states in the last 2 or 3 days his legs have worsened including bilateral lower extremity pain with new onset right lower extremity drainage and redness. Patient feels chills but no fevers reported by patient. He was previously seen in the hospital and given Keflex on discharge and then followed up in Infectious Disease Clinic on 03/11 and was changed to cefadroxil however the patient did not fruit picker the medication and had been off of antibiotics for 2-3 days prior to admission per his report. His main concern at initial consultation was lower extremity pain he denies any respiratory, abdominal or urinary or symptoms. Patient was seen in the emergency room on 03/16 and began on Unasyn. He was subsequently admitted for inpatient care and IV antibiotics. Infectious disease consult 03/17/2023, patient on Unasyn and clindamycin. Discharge on Unsyn to [facility] on 03/22 but then left A[facility] per hx last week after being there for approx 4-5 days. ID appt 03/31 and living with daughter. He is elevating. Still some pain ongoing. No f/c/s. Some drainage bilaterally. No other symptoms. Off of abx after leaving [facility], but did take po abx that he had left over at home. Appt 04/07, patient is still living at daughter's home. States this is going well. Endorses that he is elevating his legs. Changed to 2 cultures of Providencia yesterday to Septra and has stopped the other antibiotics. Patient does have a new abrasion on left lower leg medial surface as he hit it on his shoe. Also proximal wound noted no fevers chills or sweats. History of a COVID outbreak at his mom's care facility and he is requesting COVID tests although he is currently asymptomatic per his report. ID 04/18 for BLE wounds and hx of cellulitis. Remains on septra po. S/p HCV treatment. No f/c/s. No abdominal pain or n/v. Lives with daughter. Having issues at home. Sees wound care today as well. ROS Review of Systems A complete review of systems are negative except those consistent with HPI No fevers, chills or sweats No cough, chest pain No dysphagia, odynophagia No abdominal pain, nausea, vomiting, diarrhea No dysuria, frequency, hematuria No headache, dizziness, focal neurologic complaints No ear pain No sinus pain No rash No weight loss No joint or muscular pain Recent travel history?No HISTORY/ALLERGIES/MEDS No Known Allergies Past Medical History: Diagnosis Date Asthma Essential hypertension, benign MRSA (methicillin resistant staph aureus) culture positive rt. lower posteria leg Past Surgical History: Procedure Laterality Date APPENDECTOMY BACK SURGERY FOOT SURGERY Social History Socioeconomic History Marital status: Spouse name: Not on file Number of children: Not on file Years of education: Not on file Highest education level: Not on file Occupational History Employer: UNEMPLOYED Tobacco Use Smoking status: Former Types: Cigarettes Quit date: 2007 Years since quittin.6 Smokeless tobacco: Current Types: Chew Vaping Use Vaping Use: Never used Substance and Sexual Activity Alcohol use: Not Currently Drug use: Not Currently Types: Marijuana Comment: Former Sexual activity: Yes Partners: Female Other Topics Concern Service Not Asked Blood Transfusions Not Asked Caffeine Concern Not Asked Occupational Exposure Not Asked Hobby Hazards Not Asked Sleep Concern Not Asked Stress Concern Not Asked Weight Concern Not Asked Special Diet Not Asked Back Care Not Asked Exercise Not Asked Bike Helmet Not Asked Seat Belt Not Asked Domestic Violence No Social History Narrative Not on file Social Determinants of Health Financial Resource Strain: Not on file Food Insecurity: Not on file Transportation Needs: Not on file Physical Activity: Not on file Stress: Not on file Social Connections: Not on file Intimate Partner Violence: Not on file Housing Stability: Not on file Family History Problem Relation Age of Onset Heart Disease - Other Mother Diabetes Mother Heart Disease - Other Father Current Outpatient Medications: Diazepam 5 MG tablet, TAKE 1 TABLET BY MOUTH EVERY NIGHT AT BEDTIME NEEDED, Disp: , Rfl: Gabapentin 300 MG capsule, TAKE ONE CAPSULE BY MOUTH FOUR TIMES DAILY, Disp: , Rfl: Glycopyrrolate-Formoterol (Bevespi Aerosphere) 9-4.8 MCG/ACT Aerosol, Inhale 2 puffs 2 times daily., Disp: 1 Inhaler, Rfl: 11 Meloxicam 15 MG tablet, , Disp: , Rfl: Sulfamethoxazole-trimethoprim 400-80 MG per tablet, Take 1 tablet by mouth 2 times daily., Disp: 60 tablet, Rfl: 0 Symbicort 160-4.5 MCG/ACT Aerosol inhaler, Inhale 2 puffs every 12 hours., Disp: 10.2 g, Rfl: 1 EXAM BP 138/80 (BP Location: Right arm, BP Position: Sitting) Pulse 84 Temp 97.2 F (36.2 C) (Temporal) Resp 18 Ht 1.831 m (6' 0.1") Wt 104.3 kg (230 lb) SpO2 93% BMI 31.11 kg/m Smoking Status Former Physical Exam Vitals and nursing note reviewed. Constitutional: General: He is not in acute distress. Appearance: He is not toxic-appearing. HENT: Head: Normocephalic and atraumatic. Mouth/Throat: Pharynx: Oropharynx is clear. No oropharyngeal exudate. Eyes: Extraocular Movements: Extraocular movements intact. Conjunctiva/sclera: Conjunctivae normal. Pupils: Pupils are equal, round, and reactive to light. Cardiovascular: Rate and Rhythm: Normal rate and regular rhythm. Pulses: Normal pulses. Heart sounds: No murmur heard. Pulmonary: Effort: No respiratory distress. Breath sounds: Normal breath sounds. No rhonchi or rales. Abdominal: General: Bowel sounds are normal. There is no distension. Palpations: Abdomen is soft. There is no mass. Tenderness: There is no abdominal tenderness. There is no guarding. Genitourinary: Comments: No CVA or suprapubic tenderness Musculoskeletal: General: No swelling or tenderness. Normal range of motion. Cervical back: Normal range of motion. No rigidity. Right lower leg: Edema present. Left lower leg: Edema present. Comments: Right plantar lesion on arch area, and clean wound posteriorly LLE with medial tibia open wound with hematoma and blood under skin. Some necrosis. Surrounding erythema reactive. Bilat stasis dermatitis. Skin: General: Skin is warm. Findings: No rash. Neurological: General: No focal deficit present. Mental Status: He is alert. Psychiatric: Mood and Affect: Mood normal. Behavior: Behavior normal. Thought Content: Thought content normal. LABS CBC Lab Results Component Value Date WBC 3.5 (L) 04/11/2023 HGB 10.6 (L) 04/11/2023 HCT 33.5 (L) 04/11/2023 PLATELET 116 (L) 04/11/2023 MCV 71.5 (L) 04/11/2023 EDIF Lab Results Component Value Date RBCDISTRIBU 16.0 (H) 04/11/2023 EOSINOPHILS 3.8 04/11/2023 EOSINOPHILS 0.1 04/11/2023 BASOPHILS 0.3 04/11/2023 BASOPHILS 0.0 04/11/2023 LYMPHOCYTABS 0.7 (L) 04/11/2023 PLATELET 116 (L) 04/11/2023 MPV 8.2 04/11/2023 EDIF Lab Results Component Value Date RBCDISTRIBU 16.0 (H) 04/11/2023 EOSINOPHILS 3.8 04/11/2023 EOSINOPHILS 0.1 04/11/2023 BASOPHILS 0.3 04/11/2023 BASOPHILS 0.0 04/11/2023 LYMPHOCYTABS 0.7 (L) 04/11/2023 PLATELET 116 (L) 04/11/2023 MPV 8.2 04/11/2023 ESR Lab Results Component Value Date RBCDISTRIBU 16.0 (H) 04/11/2023 EOSINOPHILS 3.8 04/11/2023 EOSINOPHILS 0.1 04/11/2023 BASOPHILS 0.3 04/11/2023 BASOPHILS 0.0 04/11/2023 LYMPHOCYTABS 0.7 (L) 04/11/2023 PLATELET 116 (L) 04/11/2023 MPV 8.2 04/11/2023 Lab Results Component Value Date SODIUM 139 04/11/2023 POTASSIUM 5.1 04/11/2023 CHLORIDE 98 04/11/2023 CO2 34 (H) 04/11/2023 BUN 24 (H) 04/11/2023 CREATSERUM 1.08 04/11/2023 GLUCOSE 96 04/11/2023 Lab Results Component Value Date CRP 5.5 03/16/2023 Lab Results Component Value Date RESULTCULT PROVIDENCIA STUARTII 03/31/2023 . Lab Results Component Value Date GLUCOSE 96 04/11/2023 . Lab Results Component Value Date CALCIUM 8.5 04/11/2023 POTASS Lab Results Component Value Date ALBUMIN 3.6 04/11/202308/2022 Lab Results Component Value Date BILITOTAL 1.3 04/11/2023 fontanez Lab Results Component Value Date BUN 24 (H) 04/11/2023 Lab Results Component Value Date CREATSERUM 1.08 04/11/2023 0 Lab Results Component Value Date SODIUM 139 04/11/2023 POTASSIUM 5.1 04/11/2023 CHLORIDE 98 04/11/2023 CO2 34 (H) 04/11/2023 04/11/2023 GGT 21 02/28/2023 ALKPHOS 80 04/11/2023 BILITOTAL 1.3 04/11/2023 BILIDIRECT 0.3 03/21/2023 No orders to display IMAGING PICC LINE PLACEMENT/REMOVAL Result Date: 03/21/2023 Raul Ng RN 03/21/2023 10:07 AM I have discussed the following issues with the ordering Clinician: Dr. Hayden Procedure explained to patient. Anatomical distortion to interfere with placement:no known restriction Arm preference for venous access: Left Arm Patient is alert, cooperative, no distress, appears stated age Patient Teaching: Yes Family Teaching: No [place] Protocol/Time Out Completed under Procedure Documentation PROCEDURE DETAILS: Midline Insertion Procedure Veins evaluated with ultrasound and appropriate vein selected. 1% Lidocaine used to anesthetize insertion site. Using standard sterile technique access was obtained. 3 Tunisian, single lumen Midline placed in L Cephalic vein. Good blood return noted, catheter flushed easily with 10mls 0.9 NS per lumen. Statlock device used to secure Midline. Dressing applied. Pt denies pain at insertion site Patient tolerated procedure fairly well without any complications. Pt c/o pain from holding arm in same position. Education: Patient/Family informed to notify nurse of any complications including pain, redness, swelling, or leakage post insertion. Before the procedure, did the clinician 1. Document informed consent. not applicable 2. Perform timeout. Yes 3. Belt Maker: If enter sterile field, uses sterile gown and gloves, cap, mask/eye protection. N/A 4. Prep site with ChloraPrep for 30 sec minimum (if femoral 120 sec minimum). Yes 5. Sterile technique to drape patient from head to toe. Yes During the procedure, did the clinician 1. Maintain a sterile field. Yes 2. Obtain a qualified hook and eye machine operator IF 3 unsuccessful sticks. (except if emergent); document the number of attempts. N/A 3. Change gloves: if a catheter was exchanged over a guide wire before handling the new sterile catheter. N/A 4. Account for the guidewire at all times. Yes After the procedure, did the clinician 1. Apply a sterile dressing immediately after insertion. Yes 2. Document date and time on the dressing. Yes 3. Perform hand hygiene. Yes 4. All staff wore a mask until sterile dressing placed. Yes 5. Dispose sharps immediately after the procedure. Yes 6. Count all sharps and be accountable for both wires. Name of staff member that counted wires and sharps : KELLY Price. [X] Call light in reach. [X] Bed low and locked. [X] Tray table within reach. Lot number: [id number] Expiration Date: 2023-10-20 Arm circumference: 29 cm Internal length: 11 cm External length: 0 cm PICC LINE PLACEMENT/REMOVAL Result Date: 03/21/2023 Raul Ng RN 03/21/2023 10:07 AM I have discussed the following issues with the ordering Clinician: Dr. Hayden Procedure explained to patient. Anatomical distortion to interfere with placement:no known restriction Arm preference for venous access: Left Arm Patient is alert, cooperative, no distress, appears stated age Patient Teaching: Yes Family Teaching: No [place] Protocol/Time Out Completed under Procedure Documentation PROCEDURE DETAILS: Midline Insertion Procedure Veins evaluated with ultrasound and appropriate vein selected. 1% Lidocaine used to anesthetize insertion site. Using standard sterile technique access was obtained. 3 Tunisian, single lumen Midline placed in L Cephalic vein. Good blood return noted, catheter flushed easily with 10mls 0.9 NS per lumen. Statlock device used to secure Midline. Dressing applied. Pt denies pain at insertion site Patient tolerated procedure fairly well without any complications. Pt c/o pain from holding arm in same position. Education: Patient/Family informed to notify nurse of any complications including pain, redness, swelling, or leakage post insertion. Before the procedure, did the clinician 1. Document informed consent. not applicable 2. Perform timeout. Yes 3. Belt Maker: If enter sterile field, uses sterile gown and gloves, cap, mask/eye protection. N/A 4. Prep site with ChloraPrep for 30 sec minimum (if femoral 120 sec minimum). Yes 5. Sterile technique to drape patient from head to toe. Yes During the procedure, did the clinician 1. Maintain a sterile field. Yes 2. Obtain a qualified hook and eye machine operator IF 3 unsuccessful sticks. (except if emergent); document the number of attempts. N/A 3. Change gloves: if a catheter was exchanged over a guide wire before handling the new sterile catheter. N/A 4. Account for the guidewire at all times. Yes After the procedure, did the clinician 1. Apply a sterile dressing immediately after insertion. Yes 2. Document date and time on the dressing. Yes 3. Perform hand hygiene. Yes 4. All staff wore a mask until sterile dressing placed. Yes 5. Dispose sharps immediately after the procedure. Yes 6. Count all sharps and be accountable for both wires. Name of staff member that counted wires and sharps : KELLY Price. [X] Call light in reach. [X] Bed low and locked. [X] Tray table within reach. Lot number: [id number] Expiration Date: 2023-10-20 Arm circumference: 29 cm Internal length: 11 cm External length: 0 cm US DUPLEX EXTREMITY DVT BILATERAL Result Date: 03/16/2023 EXAMINATION: US DUPLEX EXTREMITY DVT BILATERAL HISTORY: Bilateral lower extremity edema COMPARISON: Venous duplex 02/28/2023 TECHNIQUE: Venous duplex examination performed using B-mode, color flow and spectral analysis. FINDINGS: Right: The lower extremity venous system exhibits normal flow, phasicity, augmentation, compressibility and waveforms. The posterior tibial and peroneal veins were not visualized. Left: The distal femoral vein was not visualized on this study. Neither was the popliteal or peroneal veins. The remainder of the visualized venous system exhibits normal flow, phasicity, augmentation, compressibility and waveforms. 4.3 x 4.2 x 1.3 cm lymph node within the right renal region. IMPRESSION: No visualized venous thrombus. Right inguinal lymph node. XR CHEST AP PORTABLE Result Date: 03/16/2023 EXAM: XR CHEST AP PORTABLE HISTORY: chf COMPARISON: 11/12/2021 TECHNIQUE: Single view of the chest FINDINGS: Heart size normal. No focal consolidation, pleural effusion, pulmonary congestion or pneumothorax. Right mandible fixation hardware. Surgical clips projecting on the left supra clavicular soft tissue. IMPRESSION: No acute findings. Microbiology Blood culture 03/17 no growth Wound RLE 03/17: NOF Nares 03/16-, history of previous MSSA Left lower extremity wounds 03/11 with Enterococcus sensitive to ampicillin Enterococcus Faecalis Group D Ampicillin <=2 SUSCEPT... SS Gentamicin High Level RESISTANT R PENICILLIN G 2 SUSCEPTIBLE SS Streptomycin High Level SUSCEPTIBLE S Vancomycin 1 SUSCEPTIBLE SS Susceptibility Comments Enterococcus Faecalis Group D ENTEROCOCCUS FAECALIS GROUP D Specimen Collected: 03/11/23 12:23 Last Resulted: 03/14/23 11:24 Lab Flowsheet Order Details View Encounter Lab and Collection Details Routing Result History View All Conversations on this Encounter Diagnosis/Plan: There are no diagnoses linked to this encounter. Carmen Gilman 57 y.o. admitted for lower extremity wounds and worsening infections in the setting of a history of pancytopenia, end-stage liver disease and history of drug and alcohol use Left lower extremity laceration/wound infection -Traumatic injury on 02/25 -nares shows MSSA during early February admission, but follow up testing negative -Blood cultures 02/26 and 02/27 no growth -Wound culture 02/27 MSSA; MSSA is likely the main pathogen, also with a bacillus species on file which is likely more of a colonizer of the skin. -culture also showed Enterococcus on 03/19 but this is more likely a colonizer -ultrasound negative for DVT but does show some reactive inguinal lymph nodes -s/p cefepime and Vancomycin ended 03/03 and s/p oral Keflex 500 mg 4 times a day for 8 days, 03/03-03/11, then to cefadroxil, but he never picked up the medication -local wound care, referral back to wound care pending appointment on 04/18 and would recommend local dressings which will be placed today and elevation until he can get appointment. Discussed with him -S/p augmentin 03/31-04/06 -Wound cx 03/31 with Providencia and Enterococcus. The Providentia isolate was sensitive to Septra (but was resistant to Augmentin) which was transitioned to and Enterococcus had already received Augmentin. -continue Septra 04/06-current, change to daily 04/18-on -[facility] Right lower extremity soft tissue infection -appearance is consistent with an impetigo like infection -check culture but most likely Staphylococcus or Streptococcus given appearance the patient is at risk for other organisms given his living situation and comorbidities; ordered 03/17 but no current results -s/p clindamycin 03/17-03/19 and then discontinued -blood culture 03/17 NGTD -wound culture 03/17 with normal skin sobeida -local dressings, wound care with elevation and fluid management -resolved Hepatitis C - INR 1.16 mildly elevated, fibrosure 0.78 consistent with cirrhosis at initial eval, alpha-fetoprotein which was normal -NS5A genotype 3 resistance testing: negative -Hx of decompensated cirrhosis given varices noted. -S/p daily fixed dosing of sofosbuvir 400mg/velpatasvir 100mg (epclusa) x 24 weeks, 08/23/22-current x 24 weeks; completed treatment in early February -Plan SVR in 3 months after treatment ended, planned for May Cirrhosis/esophageal varices -Patient has seen GI specialist -Testing including ISSAC, Anca, teddy, antimitochondrial antibody, EBV, CMV, ceruloplasmin were normal -EGD with varices, managed by GI -LFTs within normal limits 03/21/2023 Positive hepatitis B core antibody -Patient is surface antibody positive but surface antigen negative -Obtained hepatitis B DNA level 06/09 which was negative Drug use -Recommend ongoing cessation, recent positive cocaine test during admission in February -patient endorses using marijuana Health care maintenance -Patient is immune against hepatitis A and hepatitis B based on serologies -Recommend influenza, coronavirus, shingles, pneumococcal vaccinations but the patient has deferred previously History of alcohol abuse -Currently off of alcohol Pancytopenia -ongoing history of pancytopenia, likely due to underlying liver disease -patient seeing student services vice president Dr Dahl -Positive testing for positive platelet antibodies IIB/IIIA, possible ITP -Possible thalassemia, electrophoresis was not performed though according to lab review -reticulocyte percentage 2.2, iron, ferritin, B12 and folate normal in past -patient seeing student services vice president Dr Dahl -Positive testing for positive platelet antibodies IIB/IIIA, possible ITPl Soluble transferrin elevated 27 -White count 2.2, 2.5, 2.6, 2.1, 2.4, 2.6, 3.5 -Hemoglobin 10, 9.9, 9.3, 9.8, 9.6, 9.8, 10.6 -Platelets of 91, 81, 87, 94, 95, 101, 116 -Stably low, follow up in Hematology Clinic Obesity -Patient with ongoing efforts to lose weight -BMI 31 Right lower extremity wound/plantar -Patient saw podiatry Dr. Pelayo in [facility] and then to [facility] with Dr. Bryan; plan shave procedure once legs further healed noted -outpatient Podiatry follow-up Incarceration history -Patient concerned that he may have been exposed to tuberculosis and TB testing was negative Hx of MSSA colonization -Positive 02/27 -Repeat testing negative 03/16 Lymphedema -Chronic swelling noted -Elevation and diuretics -history of Unna boot use, none current -Ultrasound without DVT but did show reactive adenopathy -Pending wound care assessment for wraps COPD.RAD -inhalers/ PCP Possible COVID exposure -COVID testing 04/07 negative Disposition -Needs place to live, consult 21 min of total care RTC 10 days Nathan Hayden MD Please note Portions of this note utilized [employer] software, please excuse any typographical or grammatical errors. documented in this encounter [facility] 04-07-2023 History of Present illness Narrative Review of Systems A complete review of systems are negative except those consistent with HPI No fevers, chills or sweats No cough, chest pain No dysphagia, odynophagia No abdominal pain, nausea, vomiting, diarrhea No dysuria, frequency, hematuria No headache, dizziness, focal neurologic complaints No ear pain No sinus pain No rash No weight loss No joint or muscular pain Recent travel history? No HPI Carmen Gilman 57 y.o. male presents today for Follow-up (Wound of right lower extremity, subsequent encounter) and Hepatitis C Carmen Gilman 57 y.o. male with a history of multiple medical problems including a history of hepatitis-C status post recent completion of therapy, alcohol and drug use, cirrhosis with varices as well as lower extremity lymphedema and wounds. Patient had recent hospitalization and was discharged on 03/03 with a history of trauma to his left lower extremity with wound and complications of cellulitis. Patient was treated in the hospital with IV antibiotics and deescalated to Keflex on discharge. Additional history includes malnutrition, obesity, leg edema with recurrent infections, cocaine use, marijuana use, pancytopenia for which he is seen Hematology, asthma/COPD. No known allergies to antibiotics or other medications. Patient has a history of ongoing marijuana use, during recent admission was found to be positive for cocaine although he denies any current drug use or alcohol use. Patient has had a difficult social situation where he lives in a house with other people and states it is difficult to keep his legs dressed and clean. Who states lately he is had the live in his car the last 2 or 3 days. Patient states in the last 2 or 3 days his legs have worsened including bilateral lower extremity pain with new onset right lower extremity drainage and redness. Patient feels chills but no fevers reported by patient. He was previously seen in the hospital and given Keflex on discharge and then followed up in Infectious Disease Clinic on 03/11 and was changed to cefadroxil however the patient did not fruit picker the medication and had been off of antibiotics for 2-3 days prior to admission per his report. His main concern at initial consultation was lower extremity pain he denies any respiratory, abdominal or urinary or symptoms. Patient was seen in the emergency room on 03/16 and began on Unasyn. He was subsequently admitted for inpatient care and IV antibiotics. Infectious disease consult 03/17/2023, patient on Unasyn and clindamycin. Discharge on Unsyn to [facility] on 03/22 but then left [facility]MA per hx last week after being there for approx 4-5 days. ID appt 03/31 and living with daughter. He is elevating. Still some pain ongoing. No f/c/s. Some drainage bilaterally. No other symptoms. Off of abx after leaving AMA, but did take po abx that he had left over at home. Appt 04/07, patient is still living at daughter's home. States this is going well. Endorses that he is elevating his legs. Changed to 2 cultures of Providencia yesterday to and has stopped the other antibiotics. Patient does have a new abrasion on left lower leg medial surface as he hit it on his shoe. Also proximal wound noted no fevers chills or sweats. History of a COVID outbreak at his mom's care facility and he is requesting COVID tests although he is currently asymptomatic per his report. ROS Review of Systems A complete review of systems are negative except those consistent with HPI No fevers, chills or sweats No cough, chest pain No dysphagia, odynophagia No abdominal pain, nausea, vomiting, diarrhea No dysuria, frequency, hematuria No headache, dizziness, focal neurologic complaints No ear pain No sinus pain No rash No weight loss No joint or muscular pain Recent travel history? No HISTORY/ALLERGIES/MEDS No Known Allergies Past Medical History: Diagnosis Date Asthma Essential hypertension, benign MRSA (methicillin resistant staph aureus) culture positive rt. lower posteria leg Past Surgical History: Procedure Laterality Date APPENDECTOMY BACK SURGERY FOOT SURGERY Social History Socioeconomic History Marital status: Spouse name: Not on file Number of children: Not on file Years of education: Not on file Highest education level: Not on file Occupational History Employer: UNEMPLOYED Tobacco Use Smoking status: Former Types: Cigarettes Quit date: 2007 Years since quittin.6 Smokeless tobacco: Current Types: Chew Vaping Use Vaping Use: Never used Substance and Sexual Activity Alcohol use: Not Currently Drug use: Not Currently Types: Marijuana Comment: Former Sexual activity: Yes Partners: Female Other Topics Concern Service Not Asked Blood Transfusions Not Asked Caffeine Concern Not Asked Occupational Exposure Not Asked Hobby Hazards Not Asked Sleep Concern Not Asked Stress Concern Not Asked Weight Concern Not Asked Special Diet Not Asked Back Care Not Asked Exercise Not Asked Bike Helmet Not Asked Seat Belt Not Asked Domestic Violence No Social History Narrative Not on file Social Determinants of Health Financial Resource Strain: Not on file Food Insecurity: Not on file Transportation Needs: Not on file Physical Activity: Not on file Stress: Not on file Social Connections: Not on file Intimate Partner Violence: Not on file Housing Stability: Not on file Family History Problem Relation Age of Onset Heart Disease - Other Mother Diabetes Mother Heart Disease - Other Father Current Outpatient Medications: Amoxicillin-clavulanate 875-125 MG tablet, Take 1 tablet by mouth every 12 hours for 10 days., Disp: 20 tablet, Rfl: 0 Diazepam 5 MG tablet, TAKE 1 TABLET BY MOUTH EVERY NIGHT AT BEDTIME NEEDED, Disp: , Rfl: Gabapentin 300 MG capsule, TAKE ONE CAPSULE BY MOUTH FOUR TIMES DAILY, Disp: , Rfl: Glycopyrrolate-Formoterol (Bevespi Aerosphere) 9-4.8 MCG/ACT Aerosol, Inhale 2 puffs 2 times daily., Disp: 1 Inhaler, Rfl: 11 Meloxicam 15 MG tablet, , Disp: , Rfl: Sulfamethoxazole-trimethoprim 800-160 MG per tablet, Take 1 tablet by mouth 2 times daily for 7 days., Disp: 14 tablet, Rfl: 0 Symbicort 160-4.5 MCG/ACT Aerosol inhaler, Inhale 2 puffs every 12 hours., Disp: 10.2 g, Rfl: 1 EXAM BP 124/82 (BP Location: Right arm, BP Position: Sitting) Pulse 84 Temp 97.9 F (36.6 C) (Temporal) Resp 18 Ht 1.831 m (6' 0.1") Wt 104.8 kg (231 lb) SpO2 97% BMI 31.24 kg/m Smoking Status Former Physical Exam Vitals and nursing note reviewed. Constitutional: General: He is not in acute distress. Appearance: He is not toxic-appearing. HENT: Head: Normocephalic and atraumatic. Mouth/Throat: Pharynx: Oropharynx is clear. No oropharyngeal exudate. Eyes: Extraocular Movements: Extraocular movements intact. Conjunctiva/sclera: Conjunctivae normal. Pupils: Pupils are equal, round, and reactive to light. Cardiovascular: Rate and Rhythm: Normal rate and regular rhythm. Pulses: Normal pulses. Heart sounds: No murmur heard. Pulmonary: Effort: No respiratory distress. Breath sounds: Normal breath sounds. No rhonchi or rales. Abdominal: General: Bowel sounds are normal. There is no distension. Palpations: Abdomen is soft. There is no mass. Tenderness: There is no abdominal tenderness. There is no guarding. Genitourinary: Comments: No CVA or suprapubic tenderness Musculoskeletal: General: No swelling or tenderness. Normal range of motion. Cervical back: Normal range of motion. No rigidity. Right lower leg: Edema present. Left lower leg: Edema present. Comments: Right plantar lesion on arch area, and some drainage of posteriorly LLE with medial tibia open wound with hematoma and blood under skin. Has an abrasion of his medial malleolar area of the left leg after trauma. No purulence or malodor. Mild erythema this extremity noted Skin: General: Skin is warm. Findings: No rash. Neurological: General: No focal deficit present. Mental Status: He is alert. Psychiatric: Mood and Affect: Mood normal. Behavior: Behavior normal. Thought Content: Thought content normal. LABS CBC Lab Results Component Value Date WBC 2.6 (L) 03/22/2023 HGB 9.8 (L) 03/22/2023 HCT 30.5 (L) 03/22/2023 PLATELET 101 (L) 03/22/2023 MCV 71.6 (L) 03/22/2023 EDIF Lab Results Component Value Date RBCDISTRIBU 16.4 (H) 03/22/2023 EOSINOPHILS 11.1 (H) 03/22/2023 EOSINOPHILS 0.3 03/22/2023 BASOPHILS 0.7 03/22/2023 BASOPHILS 0.0 03/22/2023 LYMPHOCYTABS 0.7 (L) 03/22/2023 PLATELET 101 (L) 03/22/2023 MPV 8.5 03/22/2023 EDIF Lab Results Component Value Date RBCDISTRIBU 16.4 (H) 03/22/2023 EOSINOPHILS 11.1 (H) 03/22/2023 EOSINOPHILS 0.3 03/22/2023 BASOPHILS 0.7 03/22/2023 BASOPHILS 0.0 03/22/2023 LYMPHOCYTABS 0.7 (L) 03/22/2023 PLATELET 101 (L) 03/22/2023 MPV 8.5 03/22/2023 ESR Lab Results Component Value Date RBCDISTRIBU 16.4 (H) 03/22/2023 EOSINOPHILS 11.1 (H) 03/22/2023 EOSINOPHILS 0.3 03/22/2023 BASOPHILS 0.7 03/22/2023 BASOPHILS 0.0 03/22/2023 LYMPHOCYTABS 0.7 (L) 03/22/2023 PLATELET 101 (L) 03/22/2023 MPV 8.5 03/22/2023 Lab Results Component Value Date SODIUM 137 03/22/2023 POTASSIUM 4.4 03/22/2023 CHLORIDE 103 03/22/2023 CO2 31 (H) 03/22/2023 BUN 27 (H) 03/22/2023 CREATSERUM 0.70 03/22/2023 GLUCOSE 102 (H) 03/22/2023 Lab Results Component Value Date CRP 5.5 03/16/2023 Lab Results Component Value Date RESULTCULT PROVIDENCIA STUARTII 03/31/2023 . Lab Results Component Value Date GLUCOSE 102 (H) 03/22/2023 . Lab Results Component Value Date CALCIUM 7.9 (L) 03/22/2023 Lab Results Component Value Date ALBUMIN 3.2 (L) 03/22/2023 Lab Results Component Value Date BILITOTAL 0.9 03/21/2023 Lab Results Component Value Date BUN 27 (H) 03/22/2023 Lab Results Component Value Date CREATSERUM 0.70 03/22/2023 Lab Results Component Value Date SODIUM 137 03/22/2023 POTASSIUM 4.4 03/22/2023 CHLORIDE 103 03/22/2023 CO2 31 (H) 03/22/2023 Lab Results Component Value Date ALKPHOS 91 03/21/2023 Lab Results Component Value Date HEPATITISB NEGATIVE 11/14/2021 Lab Results Component Value Date ALT 13 03/21/2023 AST 26 03/21/2023 GGT 21 02/28/2023 ALKPHOS 91 03/21/2023 BILITOTAL 0.9 03/21/2023 BILIDIRECT 0.3 03/21/2023 No orders to display IMAGING PICC LINE PLACEMENT/REMOVAL Result Date: 03/21/2023 Raul Ng RN 03/21/2023 10:07 AM I have discussed the following issues with the ordering Clinician: Dr. Hayden Procedure explained to patient. Anatomical distortion to interfere with placement:no known restriction Arm preference for venous access: Left Arm Patient is alert, cooperative, no distress, appears stated age Patient Teaching: Yes Family Teaching: No [place] Protocol/Time Out Completed under Procedure Documentation PROCEDURE DETAILS: Midline Insertion Procedure Veins evaluated with ultrasound and appropriate vein selected. 1% Lidocaine used to anesthetize insertion site. Using standard sterile technique access was obtained. 3 Tunisian, single lumen Midline placed in L Cephalic vein. Good blood return noted, catheter flushed easily with 10mls 0.9 NS per lumen. Statlock device used to secure Midline. Dressing applied. Pt denies pain at insertion site Patient tolerated procedure fairly well without any complications. Pt c/o pain from holding arm in same position. Education: Patient/Family informed to notify nurse of any complications including pain, redness, swelling, or leakage post insertion. Before the procedure, did the clinician 1. Document informed consent. not applicable 2. Perform timeout. Yes 3. Belt Maker: If enter sterile field, uses sterile gown and gloves, cap, mask/eye protection. N/A 4. Prep site with ChloraPrep for 30 sec minimum (if femoral 120 sec minimum). Yes 5. Sterile technique to drape patient from head to toe. Yes During the procedure, did the clinician 1. Maintain a sterile field. Yes 2. Obtain a qualified hook and eye machine operator IF 3 unsuccessful sticks. (except if emergent); document the number of attempts. N/A 3. Change gloves: if a catheter was exchanged over a guide wire before handling the new sterile catheter. N/A 4. Account for the guidewire at all times. Yes After the procedure, did the clinician 1. Apply a sterile dressing immediately after insertion. Yes 2. Document date and time on the dressing. Yes 3. Perform hand hygiene. Yes 4. All staff wore a mask until sterile dressing placed. Yes 5. Dispose sharps immediately after the procedure. Yes 6. Count all sharps and be accountable for both wires. Name of staff member that counted wires and sharps : KELLY Price. [X] Call light in reach. [X] Bed low and locked. [X] Tray table within reach. Lot number: [id number] Expiration Date: 2023-10-20 Arm circumference: 29 cm Internal length: 11 cm External length: 0 cm PICC LINE PLACEMENT/REMOVAL Result Date: 03/21/2023 Raul Ng RN 03/21/2023 10:07 AM I have discussed the following issues with the ordering Clinician: Dr. Hayden Procedure explained to patient. Anatomical distortion to interfere with placement:no known restriction Arm preference for venous access: Left Arm Patient is alert, cooperative, no distress, appears stated age Patient Teaching: Yes Family Teaching: No [place] Protocol/Time Out Completed under Procedure Documentation PROCEDURE DETAILS: Midline Insertion Procedure Veins evaluated with ultrasound and appropriate vein selected. 1% Lidocaine used to anesthetize insertion site. Using standard sterile technique access was obtained. 3 Tunisian, single lumen Midline placed in L Cephalic vein. Good blood return noted, catheter flushed easily with 10mls 0.9 NS per lumen. Statlock device used to secure Midline. Dressing applied. Pt denies pain at insertion site Patient tolerated procedure fairly well without any complications. Pt c/o pain from holding arm in same position. Education: Patient/Family informed to notify nurse of any complications including pain, redness, swelling, or leakage post insertion. Before the procedure, did the clinician 1. Document informed consent. not applicable 2. Perform timeout. Yes 3. Belt Maker: If enter sterile field, uses sterile gown and gloves, cap, mask/eye protection. N/A 4. Prep site with ChloraPrep for 30 sec minimum (if femoral 120 sec minimum). Yes 5. Sterile technique to drape patient from head to toe. Yes During the procedure, did the clinician 1. Maintain a sterile field. Yes 2. Obtain a qualified hook and eye machine operator IF 3 unsuccessful sticks. (except if emergent); document the number of attempts. N/A 3. Change gloves: if a catheter was exchanged over a guide wire before handling the new sterile catheter. N/A 4. Account for the guidewire at all times. Yes After the procedure, did the clinician 1. Apply a sterile dressing immediately after insertion. Yes 2. Document date and time on the dressing. Yes 3. Perform hand hygiene. Yes 4. All staff wore a mask until sterile dressing placed. Yes 5. Dispose sharps immediately after the procedure. Yes 6. Count all sharps and be accountable for both wires. Name of staff member that counted wires and sharps : KELLY Price. [X] Call light in reach. [X] Bed low and locked. [X] Tray table within reach. Lot number: [id number] Expiration Date: 2023-10-20 Arm circumference: 29 cm Internal length: 11 cm External length: 0 cm US DUPLEX EXTREMITY DVT BILATERAL Result Date: 03/16/2023 EXAMINATION: US DUPLEX EXTREMITY DVT BILATERAL HISTORY: Bilateral lower extremity edema COMPARISON: Venous duplex 02/28/2023 TECHNIQUE: Venous duplex examination performed using B-mode, color flow and spectral analysis. FINDINGS: Right: The lower extremity venous system exhibits normal flow, phasicity, augmentation, compressibility and waveforms. The posterior tibial and peroneal veins were not visualized. Left: The distal femoral vein was not visualized on this study. Neither was the popliteal or peroneal veins. The remainder of the visualized venous system exhibits normal flow, phasicity, augmentation, compressibility and waveforms. 4.3 x 4.2 x 1.3 cm lymph node within the right renal region. IMPRESSION: No visualized venous thrombus. Right inguinal lymph node. XR CHEST AP PORTABLE Result Date: 03/16/2023 EXAM: XR CHEST AP PORTABLE HISTORY: chf COMPARISON: 11/12/2021 TECHNIQUE: Single view of the chest FINDINGS: Heart size normal. No focal consolidation, pleural effusion, pulmonary congestion or pneumothorax. Right mandible fixation hardware. Surgical clips projecting on the left supra clavicular soft tissue. IMPRESSION: No acute findings. Microbiology Blood culture 03/17 no growth Wound RLE 03/17: NOF Nares 03/16-, history of previous MSSA Left lower extremity wounds 03/11 with Enterococcus sensitive to ampicillin Enterococcus Faecalis Group D Ampicillin <=2 SUSCEPT... SS Gentamicin High Level RESISTANT R PENICILLIN G 2 SUSCEPTIBLE SS Streptomycin High Level SUSCEPTIBLE S Vancomycin 1 SUSCEPTIBLE SS Susceptibility Comments Enterococcus Faecalis Group D ENTEROCOCCUS FAECALIS GROUP D Specimen Collected: 03/11/23 12:23 Last Resulted: 03/14/23 11:24 Lab Flowsheet Order Details View Encounter Lab and Collection Details Routing Result History View All Conversations on this Encounter Diagnosis/Plan: There are no diagnoses linked to this encounter. Carmen Gilman 57 y.o. admitted for lower extremity wounds and worsening infections in the setting of a history of pancytopenia, end-stage liver disease and history of drug and alcohol use Left lower extremity laceration/wound infection -Traumatic injury on 02/25 -nares shows MSSA during early February admission, but follow up testing negative -Blood cultures 02/26 and 02/27 no growth -Wound culture 02/27 MSSA; MSSA is likely the main pathogen, also with a bacillus species on file which is likely more of a colonizer of the skin. -culture also showed Enterococcus on 03/19 but this is more likely a colonizer -ultrasound negative for DVT but does show some reactive inguinal lymph nodes -s/p cefepime and Vancomycin ended 03/03 and s/p oral Keflex 500 mg 4 times a day for 8 days, 03/03-03/11, then to cefadroxil, but he never picked up the medication -local wound care, referral back to wound care pending appointment on 04/18 and would recommend local dressings which will be placed today and elevation until he can get appointment. Discussed with him -S/p augmentin 03/31-04/06 -Wound cx 03/31 with Providencia and Enterococcus. The Providentia isolate was sensitive to Septra (but was resistant to Augmentin) which was transitioned to and Enterococcus had already received Augmentin. -continue Septra 04/06-current -[facility] in [facility] disease clinic on 04/18, earlier if any new issues Right lower extremity soft tissue infection -appearance is consistent with an impetigo like infection -check culture but most likely Staphylococcus or Streptococcus given appearance the patient is at risk for other organisms given his living situation and comorbidities; ordered 03/17 but no current results -s/p clindamycin 03/17-03/19 and then discontinued -blood culture 03/17 NGTD -wound culture 03/17 with normal skin sobeida -local dressings, wound care with elevation and fluid management -resolved Hepatitis C - INR 1.16 mildly elevated, fibrosure 0.78 consistent with cirrhosis at initial eval, alpha-fetoprotein which was normal -NS5A genotype 3 resistance testing: negative -Hx of decompensated cirrhosis given varices noted. -S/p daily fixed dosing of sofosbuvir 400mg/velpatasvir 100mg (epclusa) x 24 weeks, 08/23/22-current x 24 weeks; completed treatment in early February -Plan SVR in 3 months after treatment ended, planned for May Cirrhosis/esophageal varices -Patient has seen GI specialist -Testing including ISSAC, Anca, teddy, antimitochondrial antibody, EBV, CMV, ceruloplasmin were normal -EGD with varices, managed by GI -LFTs within normal limits 03/21/2023 Positive hepatitis B core antibody -Patient is surface antibody positive but surface antigen negative -Obtained hepatitis B DNA level 06/09 which was negative Drug use -Recommend ongoing cessation, recent positive cocaine test during admission in February -patient endorses using marijuana Health care maintenance -Patient is immune against hepatitis A and hepatitis B based on serologies -Recommend influenza, coronavirus, shingles, pneumococcal vaccinations but the patient has deferred previously History of alcohol abuse -Currently off of alcohol Pancytopenia -ongoing history of pancytopenia, likely due to underlying liver disease -patient seeing student services vice president Dr Dahl -Positive testing for positive platelet antibodies IIB/IIIA, possible ITP -Possible thalassemia, electrophoresis was not performed though according to lab review -reticulocyte percentage 2.2, iron, ferritin, B12 and folate normal in past -patient seeing student services vice president Dr Dahl -Positive testing for positive platelet antibodies IIB/IIIA, possible ITPl Soluble transferrin elevated 27 -White count 2.2, 2.5, 2.6, 2.1, 2.4, 2.6 -Hemoglobin 10, 9.9, 9.3, 9.8, 9.6, 9.8 -Platelets of 91, 81, 87, 94, 95, 101 -Stably low, follow up in Hematology Clinic Obesity -Patient with ongoing efforts to lose weight -BMI 31 Right lower extremity wound/feet& toe deformities -Patient saw podiatry Dr. Pelayo in [facility] and then to [facility] with Dr. Bryan; plan shave procedure once legs further healed noted -outpatient Podiatry follow-up Incarceration history -Patient concerned that he may have been exposed to tuberculosis and TB testing was negative Hx of MSSA colonization -Positive 02/27 -Repeat testing negative 03/16 Lymphedema -Chronic swelling noted -Elevation and diuretics -history of Unna boot use, none current -Ultrasound without DVT but did show reactive adenopathy -No compression yet on LLE COPD.RAD -inhalers/ PCP Possible COVID exposure -COVID testing 04/07 ordered 20 min of total care, coordination of care with [facility], antibiotics given, COVID testing ordered. RTC 10 days Nathan Hayden MD Please note Portions of this note utilized [employer] dictation software, please excuse any typographical or grammatical errors. documented in this encounter [facility] 04-07-2023 Miscellaneous Notes Addended by: RESHMA GOODRICH on: 04/07/2023 12:13 PM Modules accepted: Orders documented in this encounter [facility] 04-07-2023 Note Addended by: RESHMA CHANEL on: 04/07/2023 12:13 PM Modules accepted: Orders [facility] 03-31-2023 History of Present illness Narrative Review of Systems A complete review of systems are negative except those consistent with HPI No fevers, chills or sweats No cough, chest pain No dysphagia, odynophagia No abdominal pain, nausea, vomiting, diarrhea No dysuria, frequency, hematuria No headache, dizziness, focal neurologic complaints No ear pain No sinus pain No rash No weight loss No joint or muscular pain Recent travel history? No HPI Carmen Gilman 57 y.o. male presents today for Follow-up and Hepatitis C Carmen Gilman 57 y.o. male with a history of multiple medical problems including a history of hepatitis-C status post recent completion of therapy, alcohol and drug use, cirrhosis with varices as well as lower extremity lymphedema and wounds. Patient had recent hospitalization and was discharged on 03/03 with a history of trauma to his left lower extremity with wound and complications of cellulitis. Patient was treated in the hospital with IV antibiotics and deescalated to Keflex on discharge. Additional history includes malnutrition, obesity, leg edema with recurrent infections, cocaine use, marijuana use, pancytopenia for which he is seen Hematology, asthma/COPD. No known allergies to antibiotics or other medications. Patient has a history of ongoing marijuana use, during recent admission was found to be positive for cocaine although he denies any current drug use or alcohol use. Patient has had a difficult social situation where he lives in a house with other people and states it is difficult to keep his legs dressed and clean. Who states lately he is had the live in his car the last 2 or 3 days. Patient states in the last 2 or 3 days his legs have worsened including bilateral lower extremity pain with new onset right lower extremity drainage and redness. Patient feels chills but no fevers reported by patient. He was previously seen in the hospital and given Keflex on discharge and then followed up in Infectious Disease Clinic on 03/11 and was changed to cefadroxil however the patient did not fruit picker the medication and had been off of antibiotics for 2-3 days prior to admission per his report. His main concern at initial consultation was lower extremity pain he denies any respiratory, abdominal or urinary or symptoms. Patient was seen in the emergency room on 03/16 and began on Unasyn. He was subsequently admitted for inpatient care and IV antibiotics. Infectious disease consult 03/17/2023, patient on Unasyn and clindamycin. Discharge on Unsyn to [facility] on 03/22 but then left [facility] per hx last week after being there for approx 4-5 days. ID appt 8/10 and living with daughter. He is elevating. Still some pain ongoing. No f/c/s. Some drainage bilaterally. No other symptoms. Off of abx after leaving AMA, but did take po abx that he had left over at home. ROS No notes on file HISTORY/ALLERGIES/MEDS No Known Allergies Past Medical History: Diagnosis Date Asthma Essential hypertension, benign MRSA (methicillin resistant staph aureus) culture positive rt. lower posteria leg Past Surgical History: Procedure Laterality Date APPENDECTOMY BACK SURGERY FOOT SURGERY Social History Socioeconomic History Marital status: Spouse name: Not on file Number of children: Not on file Years of education: Not on file Highest education level: Not on file Occupational History Employer: UNEMPLOYED Tobacco Use Smoking status: Former Types: Cigarettes Quit date: 2007 Years since quittin.6 Smokeless tobacco: Current Types: Chew Vaping Use Vaping Use: Never used Substance and Sexual Activity Alcohol use: Not Currently Drug use: Not Currently Types: Marijuana Comment: Former Sexual activity: Yes Partners: Female Other Topics Concern Service Not Asked Blood Transfusions Not Asked Caffeine Concern Not Asked Occupational Exposure Not Asked Hobby Hazards Not Asked Sleep Concern Not Asked Stress Concern Not Asked Weight Concern Not Asked Special Diet Not Asked Back Care Not Asked Exercise Not Asked Bike Helmet Not Asked Seat Belt Not Asked Domestic Violence No Social History Narrative Not on file Social Determinants of Health Financial Resource Strain: Not on file Food Insecurity: Not on file Transportation Needs: Not on file Physical Activity: Not on file Stress: Not on file Social Connections: Not on file Intimate Partner Violence: Not on file Housing Stability: Not on file Family History Problem Relation Age of Onset Heart Disease - Other Mother Diabetes Mother Heart Disease - Other Father Current Outpatient Medications: Ampicillin-Sulbactam Sodium (UNASYN) in Sodium chloride 0.9%, with overfill 120 mL IVPB, 3 g by Intravenous route every 6 hours for 14 days., Disp: , Rfl: 0 Diazepam 5 MG tablet, TAKE 1 TABLET BY MOUTH EVERY NIGHT AT BEDTIME NEEDED, Disp: , Rfl: Gabapentin 300 MG capsule, TAKE ONE CAPSULE BY MOUTH FOUR TIMES DAILY, Disp: , Rfl: Glycopyrrolate-Formoterol (Bevespi Aerosphere) 9-4.8 MCG/ACT Aerosol, Inhale 2 puffs 2 times daily., Disp: 1 Inhaler, Rfl: 11 Meloxicam 15 MG tablet, , Disp: , Rfl: Symbicort 160-4.5 MCG/ACT Aerosol inhaler, Inhale 2 puffs every 12 hours., Disp: 10.2 g, Rfl: 1 EXAM Smoking Status Former Physical Exam Vitals and nursing note reviewed. Constitutional: General: He is not in acute distress. Appearance: He is not toxic-appearing. HENT: Head: Normocephalic and atraumatic. Mouth/Throat: Pharynx: Oropharynx is clear. No oropharyngeal exudate. Eyes: Extraocular Movements: Extraocular movements intact. Conjunctiva/sclera: Conjunctivae normal. Pupils: Pupils are equal, round, and reactive to light. Cardiovascular: Rate and Rhythm: Normal rate and regular rhythm. Pulses: Normal pulses. Heart sounds: No murmur heard. Pulmonary: Effort: No respiratory distress. Breath sounds: Normal breath sounds. No rhonchi or rales. Abdominal: General: Bowel sounds are normal. There is no distension. Palpations: Abdomen is soft. There is no mass. Tenderness: There is no abdominal tenderness. There is no guarding. Genitourinary: Comments: No CVA or suprapubic tenderness Musculoskeletal: General: No swelling or tenderness. Normal range of motion. Cervical back: Normal range of motion. No rigidity. Right lower leg: Edema present. Left lower leg: Edema present. Comments: Right plantar lesion on arch area, and some drainage of posteriorly LLE with medial tibia open wound with hematoma and excess tissue. +Bleeding. No malodor. Some redness remains. Skin: General: Skin is warm. Findings: No rash. Neurological: General: No focal deficit present. Mental Status: He is alert. Psychiatric: Mood and Affect: Mood normal. Behavior: Behavior normal. Thought Content: Thought content normal. LABS CBC Lab Results Component Value Date WBC 2.6 (L) 03/22/2023 HGB 9.8 (L) 03/22/2023 HCT 30.5 (L) 03/22/2023 PLATELET 101 (L) 03/22/2023 MCV 71.6 (L) 03/22/2023 EDIF Lab Results Component Value Date RBCDISTRIBU 16.4 (H) 03/22/2023 EOSINOPHILS 11.1 (H) 03/22/2023 EOSINOPHILS 0.3 03/22/2023 BASOPHILS 0.7 03/22/2023 BASOPHILS 0.0 03/22/2023 LYMPHOCYTABS 0.7 (L) 03/22/2023 PLATELET 101 (L) 03/22/2023 MPV 8.5 03/22/2023 EDIF Lab Results Component Value Date RBCDISTRIBU 16.4 (H) 03/22/2023 EOSINOPHILS 11.1 (H) 03/22/2023 EOSINOPHILS 0.3 03/22/2023 BASOPHILS 0.7 03/22/2023 BASOPHILS 0.0 03/22/2023 LYMPHOCYTABS 0.7 (L) 03/22/2023 PLATELET 101 (L) 03/22/2023 MPV 8.5 03/22/2023 ESR Lab Results Component Value Date RBCDISTRIBU 16.4 (H) 03/22/2023 EOSINOPHILS 11.1 (H) 03/22/2023 EOSINOPHILS 0.3 03/22/2023 BASOPHILS 0.7 03/22/2023 BASOPHILS 0.0 03/22/2023 LYMPHOCYTABS 0.7 (L) 03/22/2023 PLATELET 101 (L) 03/22/2023 MPV 8.5 03/22/2023 Lab Results Component Value Date SODIUM 137 03/22/2023 POTASSIUM 4.4 03/22/2023 CHLORIDE 103 03/22/2023 CO2 31 (H) 03/22/2023 BUN 27 (H) 03/22/2023 CREATSERUM 0.70 03/22/2023 GLUCOSE 102 (H) 03/22/2023 Lab Results Component Value Date CRP 5.5 03/16/2023 Lab Results Component Value Date RESULTCULT NO GROWTH 5 DAYS 03/17/2023 RESULTCULT NO GROWTH 5 DAYS 03/17/2023 . Lab Results Component Value Date GLUCOSE 102 (H) 03/22/2023 . Lab Results Component Value Date CALCIUM 7.9 (L) 03/22/2023 Lab Results Component Value Date ALBUMIN 3.2 (L) 03/22/2023 Lab Results Component Value Date BILITOTAL 0.9 03/21/2023 Lab Results Component Value Date BUN 27 (H) 03/22/2023 Lab Results Component Value Date CREATSERUM 0.70 03/22/2023 Lab Results Component Value Date SODIUM 137 03/22/2023 POTASSIUM 4.4 03/22/2023 CHLORIDE 103 03/22/2023 CO2 31 (H) 03/22/2023 Lab Results Component Value Date ALKPHOS 91 03/21/2023 Lab Results Component Value Date HEPATITISB NEGATIVE 11/14/2021 Lab Results Component Value Date ALT 13 03/21/2023 AST 26 03/21/2023 GGT 21 02/28/2023 ALKPHOS 91 03/21/2023 BILITOTAL 0.9 03/21/2023 BILIDIRECT 0.3 03/21/2023 No orders to display IMAGING PICC LINE PLACEMENT/REMOVAL Result Date: 03/21/2023 Raul Ng RN 03/21/2023 10:07 AM I have discussed the following issues with the ordering Clinician: Dr. Hayden Procedure explained to patient. Anatomical distortion to interfere with placement:no known restriction Arm preference for venous access: Left Arm Patient is alert, cooperative, no distress, appears stated age Patient Teaching: Yes Family Teaching: No [place] Protocol/Time Out Completed under Procedure Documentation PROCEDURE DETAILS: Midline Insertion Procedure Veins evaluated with ultrasound and appropriate vein selected. 1% Lidocaine used to anesthetize insertion site. Using standard sterile technique access was obtained. 3 Tunisian, single lumen Midline placed in L Cephalic vein. Good blood return noted, catheter flushed easily with 10mls 0.9 NS per lumen. Statlock device used to secure Midline. Dressing applied. Pt denies pain at insertion site Patient tolerated procedure fairly well without any complications. Pt c/o pain from holding arm in same position. Education: Patient/Family informed to notify nurse of any complications including pain, redness, swelling, or leakage post insertion. Before the procedure, did the clinician 1. Document informed consent. not applicable 2. Perform timeout. Yes 3. Belt Maker: If enter sterile field, uses sterile gown and gloves, cap, mask/eye protection. N/A 4. Prep site with ChloraPrep for 30 sec minimum (if femoral 120 sec minimum). Yes 5. Sterile technique to drape patient from head to toe. Yes During the procedure, did the clinician 1. Maintain a sterile field. Yes 2. Obtain a qualified hook and eye machine operator IF 3 unsuccessful sticks. (except if emergent); document the number of attempts. N/A 3. Change gloves: if a catheter was exchanged over a guide wire before handling the new sterile catheter. N/A 4. Account for the guidewire at all times. Yes After the procedure, did the clinician 1. Apply a sterile dressing immediately after insertion. Yes 2. Document date and time on the dressing. Yes 3. Perform hand hygiene. Yes 4. All staff wore a mask until sterile dressing placed. Yes 5. Dispose sharps immediately after the procedure. Yes 6. Count all sharps and be accountable for both wires. Name of staff member that counted wires and sharps : KELLY Price. [X] Call light in reach. [X] Bed low and locked. [X] Tray table within reach. Lot number: [id number] Expiration Date: 2023-10-20 Arm circumference: 29 cm Internal length: 11 cm External length: 0 cm PICC LINE PLACEMENT/REMOVAL Result Date: 03/21/2023 Raul Ng RN 03/21/2023 10:07 AM I have discussed the following issues with the ordering Clinician: Dr. Hayden Procedure explained to patient. Anatomical distortion to interfere with placement:no known restriction Arm preference for venous access: Left Arm Patient is alert, cooperative, no distress, appears stated age Patient Teaching: Yes Family Teaching: No [place] Protocol/Time Out Completed under Procedure Documentation PROCEDURE DETAILS: Midline Insertion Procedure Veins evaluated with ultrasound and appropriate vein selected. 1% Lidocaine used to anesthetize insertion site. Using standard sterile technique access was obtained. 3 Tunisian, single lumen Midline placed in L Cephalic vein. Good blood return noted, catheter flushed easily with 10mls 0.9 NS per lumen. Statlock device used to secure Midline. Dressing applied. Pt denies pain at insertion site Patient tolerated procedure fairly well without any complications. Pt c/o pain from holding arm in same position. Education: Patient/Family informed to notify nurse of any complications including pain, redness, swelling, or leakage post insertion. Before the procedure, did the clinician 1. Document informed consent. not applicable 2. Perform timeout. Yes 3. Belt Maker: If enter sterile field, uses sterile gown and gloves, cap, mask/eye protection. N/A 4. Prep site with ChloraPrep for 30 sec minimum (if femoral 120 sec minimum). Yes 5. Sterile technique to drape patient from head to toe. Yes During the procedure, did the clinician 1. Maintain a sterile field. Yes 2. Obtain a qualified hook and eye machine operator IF 3 unsuccessful sticks. (except if emergent); document the number of attempts. N/A 3. Change gloves: if a catheter was exchanged over a guide wire before handling the new sterile catheter. N/A 4. Account for the guidewire at all times. Yes After the procedure, did the clinician 1. Apply a sterile dressing immediately after insertion. Yes 2. Document date and time on the dressing. Yes 3. Perform hand hygiene. Yes 4. All staff wore a mask until sterile dressing placed. Yes 5. Dispose sharps immediately after the procedure. Yes 6. Count all sharps and be accountable for both wires. Name of staff member that counted wires and sharps : KELLY Price. [X] Call light in reach. [X] Bed low and locked. [X] Tray table within reach. Lot number: [id number] Expiration Date: 2023-10-20 Arm circumference: 29 cm Internal length: 11 cm External length: 0 cm US DUPLEX EXTREMITY DVT BILATERAL Result Date: 03/16/2023 EXAMINATION: US DUPLEX EXTREMITY DVT BILATERAL HISTORY: Bilateral lower extremity edema COMPARISON: Venous duplex 02/28/2023 TECHNIQUE: Venous duplex examination performed using B-mode, color flow and spectral analysis. FINDINGS: Right: The lower extremity venous system exhibits normal flow, phasicity, augmentation, compressibility and waveforms. The posterior tibial and peroneal veins were not visualized. Left: The distal femoral vein was not visualized on this study. Neither was the popliteal or peroneal veins. The remainder of the visualized venous system exhibits normal flow, phasicity, augmentation, compressibility and waveforms. 4.3 x 4.2 x 1.3 cm lymph node within the right renal region. IMPRESSION: No visualized venous thrombus. Right inguinal lymph node. XR CHEST AP PORTABLE Result Date: 03/16/2023 EXAM: XR CHEST AP PORTABLE HISTORY: chf COMPARISON: 11/12/2021 TECHNIQUE: Single view of the chest FINDINGS: Heart size normal. No focal consolidation, pleural effusion, pulmonary congestion or pneumothorax. Right mandible fixation hardware. Surgical clips projecting on the left supra clavicular soft tissue. IMPRESSION: No acute findings. Microbiology Blood culture 03/17 no growth Wound RLE 03/17: NOF Nares 03/16-, history of previous MSSA Left lower extremity wounds 03/11 with Enterococcus sensitive to ampicillin Enterococcus Faecalis Group D Ampicillin <=2 SUSCEPT... SS Gentamicin High Level RESISTANT R PENICILLIN G 2 SUSCEPTIBLE SS Streptomycin High Level SUSCEPTIBLE S Vancomycin 1 SUSCEPTIBLE SS Susceptibility Comments Enterococcus Faecalis Group D ENTEROCOCCUS FAECALIS GROUP D Specimen Collected: 03/11/23 12:23 Last Resulted: 03/14/23 11:24 Lab Flowsheet Order Details View Encounter Lab and Collection Details Routing Result History View All Conversations on this Encounter Diagnosis/Plan: There are no diagnoses linked to this encounter. Carmen Gilman 57 y.o. admitted for lower extremity wounds and worsening infections in the setting of a history of pancytopenia, end-stage liver disease and history of drug and alcohol use Left lower extremity laceration/wound infection -Traumatic injury on 02/25 -nares shows MSSA during early February admission, but follow up testing negative -Blood cultures 02/26 and 02/27 no growth -Wound culture 02/27 MSSA; MSSA is likely the main pathogen, also with a bacillus species on file which is likely more of a colonizer of the skin. -culture also showed Enterococcus on 03/19 but this is more likely a colonizer -ultrasound negative for DVT but does show some reactive inguinal lymph nodes -s/p cefepime and Vancomycin ended 03/03 and transitioned to oral Keflex 500 mg 4 times a day for 8 days, 03/03-03/11, then to cefadroxil, but he never picked up the medication -local wound care, referral back to wound care -Ongoing infection noted, restart augmentin -Wound cx 03/31 ordered Right lower extremity soft tissue infection -appearance is consistent with an impetigo like infection -check culture but most likely Staphylococcus or Streptococcus given appearance the patient is at risk for other organisms given his living situation and comorbidities; ordered 03/17 but no current results -s/p clindamycin 03/17-03/19 and then discontinued -blood culture 03/17 NGTD -wound culture 03/17 with normal skin sobeida -local dressings, wound care with elevation and fluid management -Augmentin as above Hepatitis C - INR 1.16 mildly elevated, fibrosure 0.78 consistent with cirrhosis at initial eval, alpha-fetoprotein which was normal -NS5A genotype 3 resistance testing: negative -Hx of decompensated cirrhosis given varices noted. -S/p daily fixed dosing of sofosbuvir 400mg/velpatasvir 100mg (epclusa) x 24 weeks, 1/2/23-current x 24 weeks; completed treatment in early February -Plan SVR in 3 months after treatment ended Cirrhosis/esophageal varices -Patient has seen GI specialist -Testing including ISSAC, Anca, teddy, antimitochondrial antibody, EBV, CMV, ceruloplasmin were normal -EGD with varices, managed by GI -LFTs within normal limits 03/21/2023 Positive hepatitis B core antibody -Patient is surface antibody positive but surface antigen negative -Obtained hepatitis B DNA level 06/09 which was negative Drug use -Recommend ongoing cessation, recent positive cocaine test during admission in February -patient endorses using marijuana -recommend cessation of drug use and this was discussed -drug screen positive for cocaine metabolite, benzodiazepines and buprenorphine -Recommend drug cessation / program Health care maintenance -Patient is immune against hepatitis A and hepatitis B based on serologies -Recommend influenza, coronavirus, shingles, pneumococcal vaccinations but the patient has deferred previously History of alcohol abuse -Currently off of alcohol Pancytopenia -ongoing history of pancytopenia, likely due to underlying liver disease -patient seeing student services vice president Dr Dahl -Positive testing for positive platelet antibodies IIB/IIIA, possible ITP -Possible thalassemia, electrophoresis was not performed though according to lab review -reticulocyte percentage 2.2, iron, ferritin, B12 and folate normal in past -patient seeing student services vice president Dr Dahl -Positive testing for positive platelet antibodies IIB/IIIA, possible ITPl Soluble transferrin elevated 27 -White count 2.2, 2.5, 2.6, 2.1, 2.4, 2.6 -Hemoglobin 10, 9.9, 9.3, 9.8, 9.6, 9.8 -Platelets of 91, 81, 87, 94, 95, 101 -Stably low, follow up in Hematology Clinic Obesity -Patient with ongoing efforts to lose weight -BMI 31 Right lower extremity wound/feet& toe deformities -Patient saw podiatry Dr. Pelayo in [place] and then to [facility] with Dr. Bryan; plan shave procedure once legs further healed noted -outpatient Podiatry follow-up for possible surgery once infections and upper area wounds are improved Incarceration history -Patient concerned that he may have been exposed to tuberculosis and TB testing was negative Hx of MSSA colonization -Positive 02/27 -Repeat testing negative 03/16 Lymphedema -Chronic swelling noted -Elevation and diuretics -history of Unna boot use, none current -Ultrasound without DVT but did show reactive adenopathy -No compression yet on LLE COPD.RAD -inhalers/ PCP Disposition -At home 32 min of total care RTC 7-10 days Nathan Hayden MD Please note Portions of this note utilized Maven[employer] dictation software, please excuse any typographical or grammatical errors. documented in this encounter [facility] 03-24-2023 Evaluation + Plan note Associated Problem(s): Cellulitis Acute on chronic problem, has occurred in the past. He does have swelling in the bilateral lower extremities secondary to his liver disease and patient has morbid obesity. Has several dermatologic changes and lower extremity and increased risk for infection. He is on IV antibiotics. We will complete this. He has plans to follow-up with Dr. Hayden. Due to his extended hospital stay he is he is here for physical rehabilitation as well as treatment of IV antibiotics. [facility] 03-24-2023 Miscellaneous Notes Associated Problem(s): Cellulitis Acute on chronic problem, has occurred in the past. He does have swelling in the bilateral lower extremities secondary to his liver disease and patient has morbid obesity. Has several dermatologic changes and lower extremity and increased risk for infection. He is on IV antibiotics. We will complete this. He has plans to follow-up with Dr. Hayden. Due to his extended hospital stay he is he is here for physical rehabilitation as well as treatment of IV antibiotics. Associated Problem(s): Sepsis (HCC) Secondary to cellulitis. Now resolved. This has occurred in the past. He does have significant lymphedema and dermatitis in the lower extremity. Discharged on IV antibiotics. We will continue. Due to the IV that has to stay in his arm with his history of polysubstance abuse I did discuss with him that it is imperative that he stays in the facility and is monitored if leaving at all times. Associated Problem(s): Nondependent cocaine abuse (HCC) Hospital chart reviewed. His urine drug screen did have cocaine, benzodiazepines as well as buprenorphine Associated Problem(s): Opioid dependence (HCC) Patient has a history of opioid dependence. Was on Suboxone however this was discontinued during his hospitalization. He was discharged on Valium to be used as needed for withdrawals. Currently doing okay we will provide as needed to every 24 hours. Would not increase the frequency due to the patient's history of misuse of controlled substances. We will continue gabapentin at 404 times a day for now as well. Will reassess. Associated Problem(s): Essential hypertension This is a chronic problem, currently controlled. Continue medications. Blood pressure goal less than 140/90. Associated Problem(s): COPD (chronic obstructive pulmonary disease) (HCC) Chronic problem likely in setting of nicotine use. He does continue to smoke tobacco. Reviewed his chart and onto similar inhalers. We will add on albuterol continue Symbicort. Discontinue the glycopyrrolate. Consider adding on Spiriva. Associated Problem(s): Chronic respiratory failure (HCC) Chronic, stable. On oxygen via nasal cannula. He does have COPD. Which is currently stable. Continue with oxygen. Associated Problem(s): Cirrhosis (HCC) This is a chronic problem, possibly secondary to hepatitis C infection. He is pancytopenic. Follows with Dr. Haydne, infectious disease. documented in this encounter [facility] 03-24-2023 Evaluation + Plan note Associated Problem(s): Sepsis (HCC) Secondary to cellulitis. Now resolved. This has occurred in the past. He does have significant lymphedema and dermatitis in the lower extremity. Discharged on IV antibiotics. We will continue. Due to the IV that has to stay in his arm with his history of polysubstance abuse I did discuss with him that it is imperative that he stays in the facility and is monitored if leaving at all times. [facility] 03-24-2023 Evaluation + Plan note Associated Problem(s): Nondependent cocaine abuse (HCC) Hospital chart reviewed. His urine drug screen did have cocaine, benzodiazepines as well as buprenorphine [facility] 03-24-2023 Evaluation + Plan note Associated Problem(s): Opioid dependence (HCC) Patient has a history of opioid dependence. Was on Suboxone however this was discontinued during his hospitalization. He was discharged on Valium to be used as needed for withdrawals. Currently doing okay we will provide as needed to every 24 hours. Would not increase the frequency due to the patient's history of misuse of controlled substances. We will continue gabapentin at 404 times a day for now as well. Will reassess. [facility] 03-24-2023 Evaluation + Plan note Associated Problem(s): Essential hypertension This is a chronic problem, currently controlled. Continue medications. Blood pressure goal less than 140/90. [facility] 03-24-2023 Evaluation + Plan note Associated Problem(s): COPD (chronic obstructive pulmonary disease) (HCC) Chronic problem likely in setting of nicotine use. He does continue to smoke tobacco. Reviewed his chart and onto similar inhalers. We will add on albuterol continue Symbicort. Discontinue the glycopyrrolate. Consider adding on Spiriva. [facility] 03-24-2023 Evaluation + Plan note Associated Problem(s): Chronic respiratory failure (HCC) Chronic, stable. On oxygen via nasal cannula. He does have COPD. Which is currently stable. Continue with oxygen. [facility] 03-24-2023 Evaluation + Plan note Associated Problem(s): Cirrhosis (HCC) This is a chronic problem, possibly secondary to hepatitis C infection. He is pancytopenic. Follows with Dr. Hayden, infectious disease. [facility] 03-23-2023 History of Present illness Narrative Images from the original note were not included. [address] [id number] Carmen Gilman is a 57 y.o. adult Assessment/Plan: Problem List Items Addressed This Visit Digestive Cirrhosis (HCC) This is a chronic problem, possibly secondary to hepatitis C infection. He is pancytopenic. Follows with Dr. Hayden, infectious disease. Respiratory Chronic respiratory failure (HCC) Chronic, stable. On oxygen via nasal cannula. He does have COPD. Which is currently stable. Continue with oxygen. COPD (chronic obstructive pulmonary disease) (HCC) Chronic problem likely in setting of nicotine use. He does continue to smoke tobacco. Reviewed his chart and onto similar inhalers. We will add on albuterol continue Symbicort. Discontinue the glycopyrrolate. Consider adding on Spiriva. Cardiovascular and Mediastinum Essential hypertension This is a chronic problem, currently controlled. Continue medications. Blood pressure goal less than 140/90. Other Opioid dependence (HCC) (Chronic) Patient has a history of opioid dependence. Was on Suboxone however this was discontinued during his hospitalization. He was discharged on Valium to be used as needed for withdrawals. Currently doing okay we will provide as needed to every 24 hours. Would not increase the frequency due to the patient's history of misuse of controlled substances. We will continue gabapentin at 404 times a day for now as well. Will reassess. Nondependent cocaine abuse (HCC) - [facility]. His urine drug screen did have cocaine, benzodiazepines as well as buprenorphine Sepsis (HCC) Secondary to cellulitis. Now resolved. This has occurred in the past. He does have significant lymphedema and dermatitis in the lower extremity. Discharged on IV antibiotics. We will continue. Due to the IV that has to stay in his arm with his history of polysubstance abuse I did discuss with him that it is imperative that he stays in the facility and is monitored if leaving at all times. Cellulitis Acute on chronic problem, has occurred in the past. He does have swelling in the bilateral lower extremities secondary to his liver disease and patient has morbid obesity. Has several dermatologic changes and lower extremity and increased risk for infection. He is on IV antibiotics. We will complete this. He has plans to follow-up with Dr. Hayden. Due to his extended hospital stay he is he is here for physical rehabilitation as well as treatment of IV antibiotics. No follow-ups on file. ____ Carmen Sajan Mukul is a 57 y.o. adult who presents for Chief Complaint Patient presents with H&P Admission HPI This is a 57-year-old male with a history of COPD, acute story failure, hypertension, polysubstance abuse, liver cirrhosis who presents today for admission H&P to [facility]. He was admitted to the hospital for sepsis secondary to cellulitis. This was outside facility. He was discharged on IV antibiotics managed by infectious disease. The patient endorses that he has a history of neuropathy and back pain and knee pain. States that he does take gabapentin for this. Would like to know if he can increase his gabapentin from 400 mg to 804 times a day. He also would like to know if we can increase his Valium as well. He states that he had to take it more frequently. He has not had it since leaving the facility. He has some lower extremity edema which she states he is always had. States that he wrapped his leg on his own. Denies any abdominal pain today. Denies any fever or chills. He would like to be able to drive himself to his appointment with infectious disease. Per nursing staff patient has been in good spirits with no issues. He has requested to be able to go outside on his own. He is also has not wanted anyone to change his bandages. Patient Active Problem List Diagnosis Toe dislocation, left, subsequent encounter Osteoarthritis of right knee Acquired pes planovalgus of right foot Primary osteoarthritis of right knee Essential hypertension Chronic respiratory failure (HCC) Opioid dependence (HCC) Atrial fibrillation with rapid ventricular response (HCC) Acute congestive heart failure ([facility]) Morbid obesity with BMI of 40.0-44.9, adult ([facility]) Type 2 diabetes mellitus without complication, without long-term current use of insulin (HCC) COPD (chronic obstructive pulmonary disease) (HCC) Hypertension Polysubstance abuse (HCC) Leukocytosis Nondependent cocaine abuse (HCC) Marijuana abuse Unresponsiveness Hypotension Acute pain of left hip Pain of left femur Sepsis ([facility]) Abnormal brain CT Bradycardia Cirrhosis (HCC) Cellulitis Past Surgical History: Procedure Laterality Date APPENDECTOMY ARTHROPLASTY KNEE TOTAL ROBOTIC ASSISTED Right 01/08/2020 Procedure: Right Total Knee Replacement Robotic; Surgeon: Sofía Dukes MD; Location[place] [facility] [place]; Service: Ortho-Robotics FOOT SURGERY Left MANDIBLE FRACTURE SURGERY ORTHOPEDIC SURGERY Right knee THORACIC DUCT LIGATION 01/15/2017 THORACIC DUCT LIGATION Family History Problem Relation Age of Onset Heart disease Mother Diabetes Mother Social History Tobacco Use Smoking status: Former Smokeless tobacco: Current Types: Chew Vaping Use Vaping Use: Never used Substance Use Topics Alcohol use: Not Currently Drug use: Never Types: Marijuana Current Outpatient Medications Medication Sig Dispense Refill albuterol (PROVENTIL) 2.5 mg /3 mL (0.083 %) nebulizer solution Take 3 mL (2.5 mg total) by nebulization every 6 (six) hours as needed for wheezing . 75 mL 0 albuterol 90 mcg/actuation inhaler Inhale 2 puffs every 6 (six) hours as needed for wheezing. ammonium lactate (AMLACTIN) 12 % cream Apply topically 2 (two) times a day . aspirin 81 MG EC tablet Take 81 mg by mouth daily . buprenorphine HCL (SUBUTEX) [address] 1 (one) tablet (8 mg total) under the tongue 3 (three) times a day . buprenorphine HCL (SUBUTEX) [address] 8 mg under the tongue . clonazePAM (KLONOPIN) 1 MG tablet Take 1 mg by mouth 4 (four) times a day . Combivent Respimat 20-100 mcg/actuation Mist Inhale 1-2 sprays every 4 to 6 hours as needed . diazePAM (VALIUM) 10 MG tablet Take 1 (one) tablet (10 mg total) by mouth 3 (three) times a day as needed . diltiazem (TIAZAC) 240 MG 24 hr capsule Take 240 mg by mouth daily . gabapentin (NEURONTIN) 800 MG tablet Take 800 mg by mouth 4 (four) times a day . pantoprazole (PROTONIX) 20 MG tablet Take 1 (one) tablet (20 mg total) by mouth daily Start: 01/09/20. 30 tablet 0 predniSONE (DELTASONE) 5 MG tablet Take 1 (one) tablet (5 mg total) by mouth daily . 30 tablet 3 Symbicort 160-4.5 mcg/actuation inhaler Inhale 2 puffs 2 (two) times a day . No current facility-administered medications for this visit. Review of Systems Constitutional: Negative for activity change, appetite change, fatigue, fever and unexpected weight change. HENT: Negative. Respiratory: Negative for cough, chest tightness and wheezing. Cardiovascular: Positive for leg swelling. Negative for chest pain and palpitations. Gastrointestinal: Negative. Negative for abdominal pain. Genitourinary: Negative. Musculoskeletal: Positive for arthralgias, back pain and gait problem. Skin: Positive for rash and wound. Neurological: Positive for weakness and numbness. Negative for tremors. Psychiatric/Behavioral: Positive for sleep disturbance. The patient is nervous/anxious. Physical Exam: BP 120/66 Pulse 72 Temp 98.1 F (36.7 C) Resp 16 SpO2 99% Wt Readings from Last 3 Encounters: 04/24/22 122.5 kg (270 lb) 04/20/22 122.6 kg (270 lb 4.5 oz) 01/31/22 136.1 kg (300 lb) BP Readings from Last 3 Encounters: 03/23/23 120/66 04/30/22 (!) 90/42 04/21/22 (!) 87/47 Physical Exam Vitals reviewed. Constitutional: General: He is not in acute distress. Appearance: He is obese. He is ill-appearing. Interventions: Nasal cannula in place. HENT: Head: Normocephalic and atraumatic. Eyes: Conjunctiva/sclera: Conjunctivae normal. Cardiovascular: Rate and Rhythm: Normal rate. Pulmonary: Breath sounds: Normal breath sounds. Transmitted upper airway sounds present. No rales. Chest: Chest wall: No tenderness. Musculoskeletal: General: Swelling present. Right lower leg: Edema present. Left lower leg: Edema present. Skin: Capillary Refill: Capillary refill takes less than 2 seconds. Findings: Rash present. Comments: Vascular skin changes bilateral legs Dryness in LE IV access present- LUE Neurological: Mental Status: He is alert and oriented to person, place, and time. Psychiatric: Mood and Affect: Mood normal. Behavior: Behavior normal. Thought Content: Thought content normal. Please note: Portions of this chart may have been created with [employer] voice recognition software. Occasional wrong-word or "sound-like" substitutions may have occurred due to inherent limitations of the voice recognition software. Please read the chart carefully and recognize, using context, where the substitutions have occurred. Electronically signed by: Nathan Collins M.D. documented in this encounter [facility] 03-22-2023 Nurse Note Report called to nurse at [facility]. [facility] 03-22-2023 Miscellaneous Notes Report called to nurse at [facility]. Midline catheter intact. Telemetry removed. Prescriptions sent with transport in envelope. Discharged. Multiple attempts this morning for PT tx, pt declined with reasons being awaiting breakfast and had just received pain medication. Then, just finished OT and wished to eat ice cream. No PT tx rendered Approached pt for OT treatment but pt currently eating breakfast at this time. Will follow up for OT treatment as pt is available and appropriate. ROSA Moreno, OTR/L 03/22/2023 Assessment unchanged from previous unless otherwise noted. Patient being assisted back to bed by staff upon PT arrival. States he has been up in chair and requests to rest at this time. Will follow. Assessment unchanged from previous unless otherwise noted. Problem: Skin Integrity Impairment, Risk/Actual (Adult) Goal: Identify Related Risk Factors and Signs and Symptoms Description: Related risk factors and signs and symptoms are identified upon initiation of Human Response Clinical Practice Guideline (CPG) Outcome: Ongoing Flowsheets (Taken 03/18/2023 0446) Related Risk Factors (Skin Integrity Impairment, Risk/Actual): edema skin disorders infection/disease process moisture Signs and Symptoms (Skin Integrity Impairment): edema inflammation Goal: Skin Integrity/Wound Healing Description: Patient will demonstrate the desired outcomes by discharge/transition of care. Outcome: Ongoing Flowsheets (Taken 03/18/2023 0446) Skin Integrity/Wound Healing: making progress toward outcome Note: ID and wound cs Dressing changed daily ATB Problem: Patient Care Overview Goal: Plan of Care Review Outcome: Ongoing Flowsheets (Taken 03/20/2023 0430 by Gurinder Holt RN) Plan Of Care Reviewed With: patient Problem: Pain, Acute (Adult) Goal: Identify Related Risk Factors and Signs and Symptoms Description: Related risk factors and signs and symptoms are identified upon initiation of Human Response Clinical Practice Guideline (CPG) Outcome: Ongoing Goal: Acceptable Pain Control/Comfort Level Description: Patient will demonstrate the desired outcomes by discharge/transition of care. Outcome: Ongoing Problem: Mobility, Physical Impaired (Adult) Goal: Enhanced Mobility Skills Description: Patient will demonstrate the desired outcomes by discharge/transition of care. Patient will demonstrate bed mobility with independence to maximize independence and minimize caregiver burden for discharge home/ the next level of care. Patient will perform transfers with FWW and SBA to minimize risk of falling and maximize independence for return to home/advancing to the next level of care. Patient will ambulate at least 30' with FWW and SBA for household/short community distance and to promote independence for return to home/the next level of care. Patient will perform written HEP with independence in order to continue the gains of the physical therapy program this stay. Patient will participate in 2 minutes of dynamic standing/sitting balance activities with 1 to no UE support and SBA to decrease fall risk at discharge. Outcome: Ongoing Flowsheets (Taken 03/18/2023 044) Enhanced Mobility Skills: making progress toward outcome Problem: Skin Integrity Impairment, Risk/Actual (Adult) Intervention: Promote Skin Healing Flowsheets (Taken 03/18/[id number] by Brody Landrum RN) Skin Protection: transparent dressing maintained Intervention: Promote/Optimize Nutrition Flowsheets (Taken 03/18/2023 0446) Oral Nutrition Promotion: physical activity promoted rest periods promoted safe use of adaptive equipment encouraged Intervention: Prevent/Manage Excess Moisture Flowsheets Taken 03/20/20232043 by Angela Sharp Hygiene Care: patient refused Perineal Care: (Patient refused at this time.) other (see comments) Taken 03/18/20232152 by Brody Landrum RN Skin Protection: transparent dressing maintained Intervention: Prevent/Minimize Sheer/Friction Injuries Flowsheets Taken 03/21/2023 005 by Heaven Shannon RN Positioning/Transfer Devices: pillows Taken 03/19/20231946 by Gurinder Hotl RN Pressure Reduction Techniques: frequent weight shift encouraged Pressure Reduction Devices: pressure-redistributing mattress utilized Pt appears asleep at this time with no distress noted and unlabored breathing on room air. Call hinkle is in reach. Assessment remains unchanged unless otherwise noted in flow sheet. Pt medicated via MAR for 8/10 leg pain and ATB hung. Ice cream given per request and denies any other needs. Call hinkle is in reach. Pt appears asleep at this time with no distress noted. Unlabored breathing on room air. Dressings appear dry and intact. Call hinkle is in reach. Assessment unchanged from previous assessment by this RN unless otherwise noted in the flowsheet. Patient appears comfortable, no signs of distress. Call light within reach. Assessment unchanged from previous assessment by this RN unless otherwise noted in the flowsheet. Patient appears comfortable, no signs of distress. Call light within reach. Problem: Skin Integrity Impairment, Risk/Actual (Adult) Goal: Identify Related Risk Factors and Signs and Symptoms Description: Related risk factors and signs and symptoms are identified upon initiation of Human Response Clinical Practice Guideline (CPG) Outcome: Ongoing Goal: Skin Integrity/Wound Healing Description: Patient will demonstrate the desired outcomes by discharge/transition of care. Outcome: Ongoing Problem: Patient Care Overview Goal: Plan of Care Review Outcome: Ongoing Goal: Individualization & Mutuality Outcome: Ongoing Goal: Discharge Needs Assessment Outcome: Ongoing Goal: Interdisciplinary Rounds/Family Conf Outcome: Ongoing Problem: Skin and Soft Tissue Infection (Adult) Goal: Signs and Symptoms of Listed Potential Problems Will be Absent, Minimized or Managed (Skin and Soft Tissue Infection) Description: Signs and symptoms of listed potential problems will be absent, minimized or managed by discharge/transition of care (reference Skin and Soft Tissue Infection (Adult) CPG). Outcome: Ongoing Problem: Pain, Acute (Adult) Goal: Identify Related Risk Factors and Signs and Symptoms Description: Related risk factors and signs and symptoms are identified upon initiation of Human Response Clinical Practice Guideline (CPG) Outcome: Ongoing Goal: Acceptable Pain Control/Comfort Level Description: Patient will demonstrate the desired outcomes by discharge/transition of care. Outcome: Ongoing Problem: Mobility, Physical Impaired (Adult) Goal: Enhanced Mobility Skills Description: Patient will demonstrate the desired outcomes by discharge/transition of care. Patient will demonstrate bed mobility with independence to maximize independence and minimize caregiver burden for discharge home/ the next level of care. Patient will perform transfers with FWW and SBA to minimize risk of falling and maximize independence for return to home/advancing to the next level of care. Patient will ambulate at least 30' with FWW and SBA for household/short community distance and to promote independence for return to home/the next level of care. Patient will perform written HEP with independence in order to continue the gains of the physical therapy program this stay. Patient will participate in 2 minutes of dynamic standing/sitting balance activities with 1 to no UE support and SBA to decrease fall risk at discharge. Outcome: Ongoing Pt resting in bed with eyes closed. Respirations even and non-labored. Assessment without changes. HOB up. Call light in reach. Pt resting in bed with eyes open. Alert and oriented x3. Pt requesting pain medication for bilateral leg and generalized pain. Pt rates pain 8/10 on pain scale. Medicated with Dilaudid as ordered. Assessment unchanged at this time. HOB up. Call light in reach. Pt sitting up in chair at bedside. Assisted to bed at this time. Pt medicated with Dilaudid for c/o pain to BLE. Pt alert and oriented x3. Speech is garbled and difficult to understand. Lung sound clear but diminished. Dressing clean, dry and intact to BLE. Edema remains to BLE. HOB up. Call light in reach. Assessment unchanged from previous assessment by this RN unless otherwise noted in the flowsheet. Patient appears comfortable, no signs of distress. Call light within reach. Assessment unchanged from previous assessment by this RN unless otherwise noted in the flowsheet. Patient appears comfortable, no signs of distress. Call light within reach. Previous assessment unchanged. Problem: Skin Integrity Impairment, Risk/Actual (Adult) Goal: Identify Related Risk Factors and Signs and Symptoms Description: Related risk factors and signs and symptoms are identified upon initiation of Human Response Clinical Practice Guideline (CPG) Outcome: Ongoing Goal: Skin Integrity/Wound Healing Description: Patient will demonstrate the desired outcomes by discharge/transition of care. Outcome: Ongoing Problem: Patient Care Overview Goal: Plan of Care Review Outcome: Ongoing Goal: Individualization & Mutuality Outcome: Ongoing Goal: Discharge Needs Assessment Outcome: Ongoing Goal: Interdisciplinary Rounds/Family Conf Outcome: Ongoing Problem: Skin and Soft Tissue Infection (Adult) Goal: Signs and Symptoms of Listed Potential Problems Will be Absent, Minimized or Managed (Skin and Soft Tissue Infection) Description: Signs and symptoms of listed potential problems will be absent, minimized or managed by discharge/transition of care (reference Skin and Soft Tissue Infection (Adult) CPG). Outcome: Ongoing Problem: Pain, Acute (Adult) Goal: Identify Related Risk Factors and Signs and Symptoms Description: Related risk factors and signs and symptoms are identified upon initiation of Human Response Clinical Practice Guideline (CPG) Outcome: Ongoing Goal: Acceptable Pain Control/Comfort Level Description: Patient will demonstrate the desired outcomes by discharge/transition of care. Outcome: Ongoing Problem: Mobility, Physical Impaired (Adult) Goal: Enhanced Mobility Skills Description: Patient will demonstrate the desired outcomes by discharge/transition of care. Patient will demonstrate bed mobility with independence to maximize independence and minimize caregiver burden for discharge home/ the next level of care. Patient will perform transfers with FWW and SBA to minimize risk of falling and maximize independence for return to home/advancing to the next level of care. Patient will ambulate at least 30' with FWW and SBA for household/short community distance and to promote independence for return to home/the next level of care. Patient will perform written HEP with independence in order to continue the gains of the physical therapy program this stay. Patient will participate in 2 minutes of dynamic standing/sitting balance activities with 1 to no UE support and SBA to decrease fall risk at discharge. Outcome: Ongoing Previous assessment unchanged. LLE dressing changed. Melatonin given for insomnia. 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 No services rendered. Meron Arias PTA Patient refused. Patient not in weigh bed. RN notified Problem: Skin Integrity Impairment, Risk/Actual (Adult) Goal: Identify Related Risk Factors and Signs and Symptoms Description: Related risk factors and signs and symptoms are identified upon initiation of Human Response Clinical Practice Guideline (CPG) Outcome: Ongoing Flowsheets (Taken 03/18/2023445) Related Risk Factors (Skin Integrity Impairment, Risk/Actual): edema skin disorders infection/disease process moisture Signs and Symptoms (Skin Integrity Impairment): edema inflammation Goal: Skin Integrity/Wound Healing Description: Patient will demonstrate the desired outcomes by discharge/transition of care. Outcome: Ongoing Flowsheets (Taken 03/18/2023445) Skin Integrity/Wound Healing: making progress toward outcome Problem: Patient Care Overview Goal: Plan of Care Review Outcome: Ongoing Problem: Mobility, Physical Impaired (Adult) Goal: Enhanced Mobility Skills Description: Patient will demonstrate the desired outcomes by discharge/transition of care. Patient will demonstrate bed mobility with independence to maximize independence and minimize caregiver burden for discharge home/ the next level of care. Patient will perform transfers with FWW and SBA to minimize risk of falling and maximize independence for return to home/advancing to the next level of care. Patient will ambulate at least 30' with FWW and SBA for household/short community distance and to promote independence for return to home/the next level of care. Patient will perform written HEP with independence in order to continue the gains of the physical therapy program this stay. Patient will participate in 2 minutes of dynamic standing/sitting balance activities with 1 to no UE support and SBA to decrease fall risk at discharge. Outcome: Ongoing Flowsheets (Taken 03/18/2023445) Enhanced Mobility Skills: making progress toward outcome Note: 1 assist Problem: Skin Integrity Impairment, Risk/Actual (Adult) Intervention: Promote Skin Healing Flowsheets (Taken 03/17/2023 0949 by Mariella Singh RN) Skin Protection: adhesive use limited Intervention: Promote/Optimize Nutrition Flowsheets (Taken 03/18/2023445) Oral Nutrition Promotion: physical activity promoted rest periods promoted safe use of adaptive equipment encouraged Intervention: Prevent/Manage Excess Moisture Flowsheets Taken 03/17/20231999 by Meron Back Hygiene Care: bedtime care cervical collar care dressed/undressed back care shampoo Taken 03/17/2023 0949 by Mariella Singh RN Skin Protection: adhesive use limited Intervention: Prevent/Minimize Sheer/Friction Injuries Flowsheets Taken 03/18/2023 0000 by Meron Back Positioning/Transfer Devices: pillows Taken 03/17/2023 0949 by Mariella Singh RN Pressure Reduction Techniques: frequent weight shift encouraged Pressure Reduction Devices: pressure-redistributing mattress utilized Pt appears asleep at this time with no distress noted. Unlabored breathing on room air. IV infusing at this time and call hinkle is in reach. Assessment remains unchanged unless otherwise noted in flow sheet. Pt medicated for 9/10 leg pain via MAR. IV infusing and call hinkle is in reach. Pt requests a Pepsi and strawberry ice cream. I certify that this patient requires inpatient services at this time. Plans for post hospitalization care will be discharge to home. Attempted PT eval [id number]. Pt adamantly declining any participation with therapy evaluations until he receives something "stronger" for pain. Dr. Nelson notified upon entering room, and states plan to place order for medication and nurse also notified. PT to return at a later time as pt agreeable to participate. No services rendered at this time. Kayla Atwood, PT, DPT 03/17/2023 Order received. Initiated evaluation from [id number] for interview portion of evaluation. Pt's speech difficult to understand. Frequently with eyes closed. Moaning in pain. Upon any attempt at assessment/testing, pt firmly declined stating her needed something for pain prior to further completion of evaluation. RN notified and pt administered tylenol. Returned later in morning at 1106 with pt adamantly declining despite education on purpose of encounter. Pt states he is not participating with therapies until he has something "stronger" for his pain. Dr. Nelson notified upon entering room and states will place order and RN notified. Will return again at a later time for evaluation as pt is agreeable for participation. ROSA Cosby, OTR/L 03/17/2023 Problem: Skin Integrity Impairment, Risk/Actual (Adult) Goal: Identify Related Risk Factors and Signs and Symptoms Description: Related risk factors and signs and symptoms are identified upon initiation of Human Response Clinical Practice Guideline (CPG) Outcome: Ongoing Goal: Skin Integrity/Wound Healing Description: Patient will demonstrate the desired outcomes by discharge/transition of care. Outcome: Ongoing Problem: Patient Care Overview Goal: Plan of Care Review Outcome: Ongoing Goal: Individualization & Mutuality Outcome: Ongoing Goal: Discharge Needs Assessment Outcome: Ongoing Goal: Interdisciplinary Rounds/Family Conf Outcome: Ongoing Problem: Skin and Soft Tissue Infection (Adult) Goal: Signs and Symptoms of Listed Potential Problems Will be Absent, Minimized or Managed (Skin and Soft Tissue Infection) Description: Signs and symptoms of listed potential problems will be absent, minimized or managed by discharge/transition of care (reference Skin and Soft Tissue Infection (Adult) CPG). Outcome: Ongoing Problem: Pain, Acute (Adult) Goal: Identify Related Risk Factors and Signs and Symptoms Description: Related risk factors and signs and symptoms are identified upon initiation of Human Response Clinical Practice Guideline (CPG) Outcome: Ongoing Goal: Acceptable Pain Control/Comfort Level Description: Patient will demonstrate the desired outcomes by discharge/transition of care. Outcome: Ongoing Pt resting in bed with eyes closed. Respirations even and non-labored. Assessment without changes. Pillow provided to elevate left leg for comfort as requested. Call light in reach. Pt unable to stand for daily weight and bed does not have scale to weigh patient. Pt resting in bed with eyes open. Assessment completed. Alert and oriented x3. Lung sounds clear but diminished throughout. Wound present to LLE scabbed over. Wound present to plantar aspect of right foot scabbed over. Wounds open to air. Bilateral lower legs with edema, redness , and warmth to touch. Pt reports legs being painful to touch. Call light in reach. documented in this encounter [facility] 03-22-2023 Nurse Note Midline catheter intact. Telemetry removed. Prescriptions sent with transport in envelope. Discharged. [facility] 03-22-2023 Hospital course Narrative Discharge Summary Summary Time: 03/22/23 12:43 PM Name: Carmen Gilman Age: 57 y.o. Birthday: 1965 Admit Date: 03/16/2023 10:31 PM Discharge Date: 03/22/2023 Brief Summary of Hospital Course: Patient is a 57 y.o. male presents to the hospital for evaluation of bilateral lower extremity edema, and redness with drainage. He had cultures done which showed that he had to have his antibiotics switched. . He states he has had increasing fluid retention. Cultures were negative today. Infectious Disease followed the patient recommended midline placement and Unasyn. He improved to the point he was appropriate for discharge to extended care facility to complete IV antibiotic therapy and follow-up with primary care and Infectious Disease in the outpatient setting as previously arranged. Bilateral cellulitis of lower leg- chronic hx of mrsa -follows with ID - wound and blood cultures no growth to date - DR Hayden following- unasyn x 14 days at [facility] Drug abuse- drug screen + cocaine/benzo/buprren- home suboxone- instructed to bring home meds - refused Anemia , unspecified - stable Benign hypertension Asthma- duoneb as needed Idiopathic thrombocytopenic purpura (ITP)- stable plt - no bleeding Leukopenia- stable Cirrhosis alcoholic - Hx lymphedema- lasix Chronic hepatitis C without hepatic coma Deconditioning- PT/OT - plan dc to snf dvt/gip ppi and lovenox Consultants: Infectious Disease Discharge Diagnosis: Active Problems: Drug abuse Anemia , unspecified Benign hypertension Asthma Idiopathic thrombocytopenic purpura (ITP) Leukopenia Chronic hepatitis C without hepatic coma Bilateral cellulitis of lower leg Cellulitis and abscess of foot Discharge Vital Signs: Blood pressure 114/73, pulse 68, temperature 98.2 F (36.8 C), temperature source Temporal, resp. rate 19, height 1.829 m (6' 0.01"), weight 104.3 kg (230 lb), SpO2 94 %. O2 Sat (%): 94 % (03/22 1125) O2 Device: room air (03/22 1125) Discharge Labs: Lab Results Component Value Date WBC 2.6 (L) 03/22/2023 HGB 9.8 (L) 03/22/2023 HCT 30.5 (L) 03/22/2023 PLATELET 101 (L) 03/22/2023 MCV 71.6 (L) 03/22/2023 @LASTMAGNESIUM(1D,2)@ Lab Results Component Value Date INR 1.27 (H) 03/17/2023 INR 1.25 (H) 02/26/2023 INR 1.17 (H) 02/04/2023 PT 16.0 (H) 03/17/2023 PT 15.8 (H) 02/26/2023 PT 15.0 (H) 02/04/2023 Lab Results Component Value Date CREATSERUM 0.70 03/22/2023 BUN 27 (H) 03/22/2023 SODIUM 137 03/22/2023 POTASSIUM 4.4 03/22/2023 CHLORIDE 103 03/22/2023 CO2 31 (H) 03/22/2023 Lab Results Component Value Date SPGRVTYUR 1.020 11/12/2021 GLUCOSEURINE NEGATIVE 11/12/2021 BILIRUBINURI MODERATE (A) 11/12/2021 KETONESURINE 15 (A) 11/12/2021 NITRITESURIN NEGATIVE 11/12/2021 LEUKOCESTUR NEGATIVE 11/12/2021 WBCURINE NEGATIVE 11/12/2021 RBCURINE NEGATIVE 11/12/2021 BACTERIAURIN NEGATIVE 11/12/2021 PHYSICAL EXAM: General: Patient resting comfortably. Awake. No acute distress. Cardiovascular: Regular rate and rhythm, without murmurs, rubs, or gallops. Respiratory: Bilateral Upper and Lower Lobes without wheezes, rales, or rhonchi Abdomen: Soft, rounded, non-tender. Bowel sounds present x4 quadrants. No rebound. No organomegaly or masses noted upon deep palpation. Extremities: No edema, clubbing or cyanosis, pulses palpable 2+ distally. Skin: Warm, Dry, Intact. Discharge Medications: Medication List for when you go home START taking these medications Ampicillin-Sulbactam Sodium (UNASYN) in Sodium chloride 0.9%, with overfill 120 mL IVPB 3 g by Intravenous route every 6 hours for 14 days. CHANGE how you take these medications Diazepam 5 MG TABS TAKE 1 TABLET BY MOUTH EVERY NIGHT AT BEDTIME NEEDED Commonly known as: VALIUM What changed: Another medication with the same name was removed. Continue taking this medication, and follow the directions you see here. Gabapentin 300 MG CAPS TAKE ONE CAPSULE BY MOUTH FOUR TIMES DAILY Commonly known as: NEURONTIN What changed: Another medication with the same name was removed. Continue taking this medication, and follow the directions you see here. CONTINUE taking these medications Bevespi Aerosphere 9-4.8 MCG/ACT AERO Inhale 2 puffs 2 times daily. For diagnoses: Chronic obstructive pulmonary disease with acute exacerbation Generic drug: Glycopyrrolate-Formoterol Meloxicam 15 MG TABS Commonly known as: MOBIC Symbicort 160-4.5 mcg/puff AERO inhaler Inhale 2 puffs every 12 hours. Generic drug: budesonide-formoterol STOP taking these medications Amoxicillin-clavulanate 500-125 MG tablet Commonly known as: AUGMENTIN Buprenorphine 8 MG sublingual tablet Commonly known as: SUBUTEX cefadroxil 500 MG CAPS Commonly known as: DURICEF Diazepam 10 MG TABS Commonly known as: VALIUM You also have another medication with the same name that you need to continue taking as instructed. Epclusa 400-100 MG TABS Generic drug: Sofosbuvir-velpatasvir furOSEmide 40 MG TABS Commonly known as: LASIX Gabapentin 400 MG CAPS Commonly known as: NEURONTIN You also have another medication with the same name that you need to continue taking as instructed. Potassium chloride 20 MEQ tab ER tablet Commonly known as: K-DUR Discharge Activity: Resume pre-hospital activities as tolerated. Discharge Diet: Resume pre-hospital diet as tolerated. Discharge Follow-up: Ani Worley APRN-ENVIRONMENTAL EMERGENCIES PLANNER [address] [facility] [id number] Follow up in 1 week(s) Nathan Hayden MD [address] [facility] [id number] Follow up in 1 week(s) Discharge Disposition: Patient will be discharged to ECF in stable condition. Discharge Time: Including assessment, planning, and medication reconciliation was 9 minutes Jolanta Crook CNP completing Discharge Summary for Dr. Nelson Please note portions of this note utilized [employer] dictation software, please excuse any typographical or grammatical errors Associated attestation - Radha Busch MD - 03/22/2023 3:23 PM EDT The patient was seen and examined independently. I agree with the discharge summary. Pt admitted with bilateral LE cellulitis.He has had ongoing treatment for LE infections after a traumatic injury earlier in February 2023. ID was consulted. Wound cx in the past grew MSSA,cx this visit no growth. He has bee n treated with iv abx during this admission and is improving. Midline placed-dc on unasyn and transfer to ecf. Vss Cv-reg Lungs-cta Abd-nt Extr-wrapped Stable for transfer to ecf. Total time spent 34 min documented in this encounter [facility] 03-22-2023 History of Present illness Narrative Images from the original note were not included. Infectious Disease SUBJECTIVE History of Present Illness: Carmen Gilman 57 y.o. male with a history of multiple medical problems including a history of hepatitis-C status post recent completion of therapy, alcohol and drug use, cirrhosis with varices as well as lower extremity lymphedema and wounds. Patient had recent hospitalization and was discharged on 03/03 with a history of trauma to his left lower extremity with wound and complications of cellulitis. Patient was treated in the hospital with IV antibiotics and deescalated to Keflex on discharge. Additional history includes malnutrition, obesity, leg edema with recurrent infections, cocaine use, marijuana use, pancytopenia for which he is seen Hematology, asthma/COPD. No known allergies to antibiotics or other medications. Patient has a history of ongoing marijuana use, during recent admission was found to be positive for cocaine although he denies any current drug use or alcohol use. Patient has had a difficult social situation where he lives in a house with other people and states it is difficult to keep his legs dressed and clean. Who states lately he is had the live in his car the last 2 or 3 days. Patient states in the last 2 or 3 days his legs have worsened including bilateral lower extremity pain with new onset right lower extremity drainage and redness. Patient feels chills but no fevers reported by patient. He was previously seen in the hospital and given Keflex on discharge and then followed up in Infectious Disease Clinic on 03/11 and was changed to cefadroxil however the patient did not fruit picker the medication and had been off of antibiotics for 2-3 days prior to admission per his report. His main concern at initial consultation was lower extremity pain he denies any respiratory, abdominal or urinary or symptoms. Patient was seen in the emergency room on 03/16 and began on Unasyn. He was subsequently admitted for inpatient care and IV antibiotics. Infectious disease consult 03/17/2023, patient on Unasyn and clindamycin Interval events: 24 hour events reviewed Afebrile. Pain controlled. Tolerating Unasyn and Midline in place. No GI issues or concerns today. Pending transfer to [facility]. Legs dressed bilaterally ROS A complete review of systems are negative except those consistent with HPI OBJECTIVE Past Medical History: Diagnosis Date Asthma Essential hypertension, benign MRSA (methicillin resistant staph aureus) culture positive rt. lower posteria leg Past Medical History: Diagnosis Date Asthma Essential hypertension, benign MRSA (methicillin resistant staph aureus) culture positive rt. lower posteria leg Past Surgical History: Procedure Laterality Date APPENDECTOMY BACK SURGERY FOOT SURGERY Patient Active Problem List Diagnosis Obesity: body mass index of 35.0-39.9 Hypotension Drug abuse Swelling of bilateral lower extremities Elevated d-dimer Anemia , unspecified Class 2 obesity due to excess calories without serious comorbidity in adult Hyponatremia Acute renal failure Generalized weakness Benign hypertension Asthma Idiopathic thrombocytopenic purpura (ITP) Hyperbilirubinemia Elevated INR Pancytopenia Leukopenia Lymphopenia Microcytic hypochromic anemia Elevated BUN CRP elevated Rheumatoid factor positive 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 Proteinuria Severe protein-calorie malnutrition Chronic hepatitis B without hepatic coma Chronic hepatitis C without hepatic coma Hepatosplenomegaly Bilateral cellulitis of lower leg Cellulitis Cellulitis and abscess of foot Social History Socioeconomic History Marital status: Spouse name: Not on file Number of children: Not on file Years of education: Not on file Highest education level: Not on file Occupational History Employer: UNEMPLOYED Tobacco Use Smoking status: Former Types: Cigarettes Quit date: 2007 Years since quittin.5 Smokeless tobacco: Current Types: Chew Vaping Use Vaping Use: Never used Substance and Sexual Activity Alcohol use: Not Currently Drug use: Not Currently Types: Marijuana Comment: Former Sexual activity: Yes Partners: Female Other Topics Concern Service Not Asked Blood Transfusions Not Asked Caffeine Concern Not Asked Occupational Exposure Not Asked Hobby Hazards Not Asked Sleep Concern Not Asked Stress Concern Not Asked Weight Concern Not Asked Special Diet Not Asked Back Care Not Asked Exercise Not Asked Bike Helmet Not Asked Seat Belt Not Asked Domestic Violence No Social History Narrative Not on file Social Determinants of Health Financial Resource Strain: Not on file Food Insecurity: Not on file Transportation Needs: Not on file Physical Activity: Not on file Stress: Not on file Social Connections: Not on file Intimate Partner Violence: Not on file Housing Stability: Not on file Current Facility-Administered Medications: Acetaminophen (TYLENOL) tablet 650 mg, 650 mg, Oral, Q4H PRN, Nestor Alonzo MD Ampicillin-Sulbactam Sodium (UNASYN) 3 g in sodium chloride 0.9% (MB PLUS) 100 mL (total volume) IVPB, 3 g, Intravenous, Q6H, Nestor Alonzo MD, Last Rate: 200 mL/hr at 03/22/23 0542, 3 g at 03/22/23 0542 bisacodyl (DULCOLAX) suppository 10 mg, 10 mg, Rectal, Daily PRN, Nestor Alonzo MD Buprenorphine (SUBUTEX) sublingual tablet 8 mg, 8 mg, Sublingual, Daily, Jolanta K Sgambellone, SUSTAINABILITY COORDINATOR-ENVIRONMENTAL EMERGENCIES PLANNER, 8 mg at 03/22/23 0755 collagenase (SANTYL) ointment 1 Application, 1 Application, Topical, Daily, Power Nelson MD, 1 Application at 03/21/23 0835 Docusate (COLACE) capsule 100 mg, 100 mg, Oral, Q12H, Nestor Alonzo MD, 100 mg at 03/22/23 075 Enoxaparin Sodium (LOVENOX) injection 40 mg, 40 mg, Subcutaneous, QHS, Isabel Tang CNP, 40 mg at 03/21/23 210 Fluticasone-Salmeterol (ADVAIR HFA) 115-21 MCG/ACT inhaler 2 puff, 2 puff, Inhalation, BID, Isabel Tang CNP, 2 puff at 03/21/23 07 furOSEmide (LASIX) tablet 40 mg, 40 mg, Oral, Daily, Jolanta Crook SUSTAINABILITY COORDINATOR-ENVIRONMENTAL EMERGENCIES PLANNER, 40 mg at 03/22/23 075 Gabapentin (NEURONTIN) capsule 400 mg, 400 mg, Oral, 4x daily, Isabel Tang CNP, 400 mg at 03/22/23 075 hydrOXYzine HCl (ATARAX) tablet 25 mg, 25 mg, Oral, TID PRN, Isabel Tang CNP, 25 mg at 03/21/232102 Ipratropium-albuterol (DUONEB) 0.5-2.5 (3) MG/3ML nebulizer solution 3 mL, 3 mL, Nebulization, Q4H PRN, Isabel Tang CNP Ketorolac (TORADOL) injection 15 mg, 15 mg, Intravenous, Q6H PRN, Isabel Tang CNP Labetalol (NORMODYNE) injection 20 mg, 20 mg, Intravenous, Q6H PRN, Isabel Tang CNP, 20 mg at 03/22/23 0441 Magnesium sulfate 2 g/50 ml in sterile water premix IVPB 2 g 50 mL (total volume), 2 g, Intravenous, Daily, Isabel Tang CNP, 2 g at 03/21/23 1413 Melatonin tablet 6 mg, 6 mg, Oral, QHS PRN, Isabel Tang CNP, 6 mg at 03/21/232102 Ondansetron 4mg/2ml (ZOFRAN) injection 4 mg, 4 mg, Intravenous, Q4H PRN, Nestor Alonzo MD Pantoprazole (PROTONIX) tablet DR 40 mg, 40 mg, Oral, Daily, Isabel Tang CNP, 40 mg at 03/22/23 0755 Potassium chloride (K-DUR) tablet ER 40 mEq, 40 mEq, Oral, Daily OR potassium chloride 40 mEq in 0.9% sodium chloride 500 ml IVPB, 40 mEq, Intravenous, Daily, Isabel Tang CNP traMADol (ULTRAM) tablet 100 mg, 100 mg, Oral, Q4H PRN, Isabel Tang CNP, 100 mg at 03/22/23 0541 triamcinolone (KENALOG) 0.1 % cream 1 Application, 1 Application, Topical, BID, Power Nelson MD, 1 Application at 03/21/23 1850 No Known Allergies Vitals: 03/22/23 0419 03/22/23 0651 03/22/23 0722 03/22/23 0756 BP: 186/68 136/55 111/78 Pulse: 95 68 Resp: 21 18 Temp: 97.5 degrees F (36.4 degrees C) 98 degrees F (36.7 degrees C) TempSrc: Oral Oral SpO2: 94% 95% 95% Height: Intake/Output Summary (Last 24 hours) at 03/22/2023 1111 Last data filed at 03/22/2023 1000 Gross per 24 hour Intake 1298 ml Output 1750 ml Net -452 ml Physical Exam: CONSTITUTIONAL: Alert and Oriented, in appearance with some noted wasting features, afebrile HEENT: Normocephalic and atraumatic, Sclera anicteric, PERRL, poor dentition CARDIAC: Normal rate, regular rhythm, normal heart sounds and intact distal pulses, no murmurs/rubs/clicks/gallops RESP: Effort normal, overall clearer , RA GI: Soft. Bowel sounds are normal. Nontender. Nondistended. Obese : No Suprapubic tenderness EXTREMITES: No cyanosis, clubbing; bilateral lower extremity lymphedema. Has a wound on his left tibia area with blood underneath skin Right lower extremity plantar surface and medial area with a lesion that has been chronically present. Right lower extremity Dressed DERM: Skin is warm and dry. MUSCULARSKELETAL: No septic arthritis noted NEUROLOGIC: Fatigued in appearance but answers questions appropriately LINES: All line sites are clear and without evidence of infection, midline 7/31 LAB RESULTS: WBC (WHITE BLOOD COUNT) Date/Time Value Ref Range Status 03/22/2023 05:51 AM 2.6 (L) 3.6 - 11.0 10*3/uL Final 03/21/2023 07:35 AM 2.4 (L) 3.6 - 11.0 10*3/uL Final 03/20/2023 05:33 AM 2.1 (L) 3.6 - 11.0 10*3/uL Final 03/19/2023 05:19 AM 2.6 (L) 3.6 - 11.0 10*3/uL Final 03/18/2023 04:47 AM 2.5 (L) 3.6 - 11.0 10*3/uL Final 03/17/2023 05:26 AM 2.2 (L) 3.6 - 11.0 10*3/uL Final 03/16/2023 05:53 PM 3.6 3.6 - 11.0 10*3/uL Final HEMOGLOBIN (HGB) Date/Time Value Ref Range Status 03/22/2023 05:51 AM 9.8 (L) 14.0 - 18.0 G/DL Final 03/21/2023 07:35 AM 9.6 (L) 14.0 - 18.0 G/DL Final 03/20/2023 05:33 AM 9.8 (L) 14.0 - 18.0 G/DL Final 03/19/2023 05:19 AM 9.3 (L) 14.0 - 18.0 G/DL Final 03/18/2023 04:47 AM 9.9 (L) 14.0 - 18.0 G/DL Final 03/17/2023 05:26 AM 10.0 (L) 14.0 - 18.0 G/DL Final 03/16/2023 05:53 PM 10.5 (L) 14.0 - 18.0 G/DL Final HEMATOCRIT (HCT) Date/Time Value Ref Range Status 03/22/2023 05:51 AM 30.5 (L) 42.0 - 52.0 % Final 03/21/2023 07:35 AM 29.6 (L) 42.0 - 52.0 % Final 03/20/2023 05:33 AM 30.0 (L) 42.0 - 52.0 % Final 03/19/2023 05:19 AM 28.9 (L) 42.0 - 52.0 % Final 03/18/2023 04:47 AM 30.5 (L) 42.0 - 52.0 % Final 03/17/2023 05:26 AM 31.4 (L) 42.0 - 52.0 % Final 03/16/2023 05:53 PM 33.6 (L) 42.0 - 52.0 % Final PLATELET COUNT Date/Time Value Ref Range Status 03/22/2023 05:51 AM 101 (L) 130 - 400 10*3/uL Final 03/21/2023 07:35 AM 95 (L) 130 - 400 10*3/uL Final 03/20/2023 05:33 AM 94 (L) 130 - 400 10*3/uL Final 03/19/2023 05:19 AM 87 (L) 130 - 400 10*3/uL Final 03/18/2023 04:47 AM 81 (L) 130 - 400 10*3/uL Final 03/17/2023 05:26 AM 91 (L) 130 - 400 10*3/uL Final 03/16/2023 05:53 PM 106 (L) 130 - 400 10*3/uL Final POTASSIUM Date/Time Value Ref Range Status 03/22/2023 05:51 AM 4.4 3.5 - 5.1 MMOL/L Final 03/21/2023 07:35 AM 4.4 3.5 - 5.1 MMOL/L Final 03/20/2023 05:33 AM 4.3 3.5 - 5.1 MMOL/L Final 03/19/2023 05:19 AM 4.1 3.5 - 5.1 MMOL/L Final 03/18/2023 04:47 AM 4.0 3.5 - 5.1 MMOL/L Final 03/17/2023 05:26 AM 3.6 3.5 - 5.1 MMOL/L Final 03/16/2023 05:53 PM 3.5 3.5 - 5.1 MMOL/L Final CHLORIDE Date/Time Value Ref Range Status 03/22/2023 05:51 AM 103 98 - 107 MMOL/L Final Comment: Please note: Triglyceride levels of 600mg/dL or higher may positively bias chloride results by approximately 2.1 mmol 03/21/2023 07:35 AM 101 98 - 107 MMOL/L Final Comment: Please note: Triglyceride levels of 600mg/dL or higher may positively bias chloride results by approximately 2.1 mmol 03/20/2023 05:33 AM 98 98 - 107 MMOL/L Final Comment: Please note: Triglyceride levels of 600mg/dL or higher may positively bias chloride results by approximately 2.1 mmol 03/19/2023 05:19 AM 99 98 - 107 MMOL/L Final Comment: Please note: Triglyceride levels of 600mg/dL or higher may positively bias chloride results by approximately 2.1 mmol 03/18/2023 04:47 AM 97 (L) 98 - 107 MMOL/L Final Comment: Please note: Triglyceride levels of 600mg/dL or higher may positively bias chloride results by approximately 2.1 mmol 03/17/2023 05:26 AM 96 (L) 98 - 107 MMOL/L Final Comment: Please note: Triglyceride levels of 600mg/dL or higher may positively bias chloride results by approximately 2.1 mmol 03/16/2023 05:53 PM 96 (L) 98 - 107 MMOL/L Final Comment: Please note: Triglyceride levels of 600mg/dL or higher may positively bias chloride results by approximately 2.1 mmol CARBON DIOXIDE (CO2) Date/Time Value Ref Range Status 03/22/2023 05:51 AM 31 (H) 22 - 30 MMOL/L Final 03/21/2023 07:35 AM 29 22 - 30 MMOL/L Final 03/20/2023 05:33 AM 33 (H) 22 - 30 MMOL/L Final 03/19/2023 05:19 AM 33 (H) 22 - 30 MMOL/L Final 03/18/2023 04:47 AM 31 (H) 22 - 30 MMOL/L Final 03/17/2023 05:26 AM 32 (H) 22 - 30 MMOL/L Final 03/16/2023 05:53 PM 33 (H) 22 - 30 MMOL/L Final GLUCOSE, POINT OF CARE Date/Time Value Ref Range Status 11/13/2021 01:10 PM 111 (H) 70 - 100 MG/DL Final Glucose Date/Time Value Ref Range Status 03/22/2023 05:51 AM 102 (H) 70 - 100 MG/DL Final Comment: NORMAL <100 mg/dL PREDIABETES 101-126 mg/dL DIABETES 126 mg/dL or higher 03/21/2023 07:35 AM 109 (H) 70 - 100 MG/DL Final Comment: NORMAL <100 mg/dL PREDIABETES 101-126 mg/dL DIABETES 126 mg/dL or higher 03/20/2023 05:33 AM 120 (H) 70 - 100 MG/DL Final Comment: NORMAL <100 mg/dL PREDIABETES 101-126 mg/dL DIABETES 126 mg/dL or higher 03/19/2023 05:19 AM 103 (H) 70 - 100 MG/DL Final Comment: NORMAL <100 mg/dL PREDIABETES 101-126 mg/dL DIABETES 126 mg/dL or higher 03/18/2023 04:47 AM 97 70 - 100 MG/DL Final Comment: NORMAL <100 mg/dL PREDIABETES 101-126 mg/dL DIABETES 126 mg/dL or higher 03/17/2023 05:26 AM 90 70 - 100 MG/DL Final Comment: NORMAL <100 mg/dL PREDIABETES 101-126 mg/dL DIABETES 126 mg/dL or higher 03/16/2023 05:53 PM 116 (H) 70 - 100 MG/DL Final Comment: NORMAL <100 mg/dL PREDIABETES 101-126 mg/dL DIABETES 126 mg/dL or higher BUN Date/Time Value Ref Range Status 03/22/2023 05:51 AM 27 (H) 7 - 20 MG/DL Final 03/21/2023 07:35 AM 28 (H) 7 - 20 MG/DL Final 03/20/2023 05:33 AM 26 (H) 7 - 20 MG/DL Final 03/19/2023 05:19 AM 25 (H) 7 - 20 MG/DL Final 03/18/2023 04:47 AM 22 (H) 7 - 20 MG/DL Final 03/17/2023 05:26 AM 16 7 - 20 MG/DL Final 03/16/2023 05:53 PM 15 7 - 20 MG/DL Final CREATININE SERUM Date/Time Value Ref Range Status 03/22/2023 05:51 AM 0.70 0.7 - 1.2 MG/DL Final 03/21/2023 07:35 AM 0.60 (L) 0.7 - 1.2 MG/DL Final 03/20/2023 05:33 AM 0.70 0.7 - 1.2 MG/DL Final 03/19/2023 05:19 AM 0.70 0.7 - 1.2 MG/DL Final 03/18/2023 04:47 AM 0.70 0.7 - 1.2 MG/DL Final 03/17/2023 05:26 AM 0.50 (L) 0.7 - 1.2 MG/DL Final 03/16/2023 05:53 PM 0.59 (L) 0.70 - 1.20 MG/DL Final Albumin Date/Time Value Ref Range Status 03/22/2023 05:51 AM 3.2 (L) 3.5 - 5.0 G/dl Final 03/21/2023 07:35 AM 3.2 (L) 3.5 - 5.0 G/dl Final 03/21/2023 07:35 AM 3.2 2.9 - 5.3 G/DL Final 03/20/2023 05:33 AM 2.9 (L) 3.5 - 5.0 G/dl Final 03/19/2023 05:19 AM 2.8 (L) 3.5 - 5.0 G/dl Final 03/18/2023 04:47 AM 2.9 (L) 3.5 - 5.0 G/dl Final 03/17/2023 05:26 AM 3.0 (L) 3.5 - 5.0 G/dl Final CALCIUM Date/Time Value Ref Range Status 03/22/2023 05:51 AM 7.9 (L) 8.4 - 10.2 MG/DL Final 03/21/2023 07:35 AM 7.5 (L) 8.4 - 10.2 MG/DL Final 03/20/2023 05:33 AM 7.3 (L) 8.4 - 10.2 MG/DL Final 03/19/2023 05:19 AM 7.4 (L) 8.4 - 10.2 MG/DL Final 03/18/2023 04:47 AM 7.4 (L) 8.4 - 10.2 MG/DL Final 03/17/2023 05:26 AM 7.9 (L) 8.4 - 10.2 MG/DL Final 03/16/2023 05:53 PM 8.3 (L) 8.4 - 10.2 MG/DL Final ALKALINE PHOSPHATASE Date/Time Value Ref Range Status 03/21/2023 07:35 AM 91 38 - 126 IU/L Final 03/16/2023 05:53 PM 53 38 - 126 IU/L Final 02/26/2023 09:32 PM 54 38 - 126 IU/L Final 02/04/2023 02:50 PM 67 38 - 126 IU/L Final 11/29/2022 01:39 PM 64 38 - 126 IU/L Final 10/27/2022 10:32 AM 66 38 - 126 IU/L Final 09/13/2022 11:05 AM 60 38 - 126 IU/L Final AST Date/Time Value Ref Range Status 03/21/2023 07:35 AM 26 17 - 59 IU/L Final 03/16/2023 05:53 PM 38 17 - 59 IU/L Final 02/26/2023 09:32 PM 26 17 - 59 IU/L Final 02/04/2023 02:50 PM 21 15 - 41 IU/L Final 11/29/2022 01:39 PM 25 15 - 41 IU/L Final 10/27/2022 10:32 AM 22 15 - 41 IU/L Final 09/13/2022 11:05 AM 25 15 - 41 IU/L Final BILIRUBIN, TOTAL Date/Time Value Ref Range Status 03/21/2023 07:35 AM 0.9 0.2 - 1.3 MG/DL Final 03/16/2023 05:53 PM 1.6 (H) 0.2 - 1.3 MG/DL Final 02/28/2023 04:47 AM 0.7 Final Comment: Reference range: 0.0 to 1.2 Unit: mg/dL 02/26/2023 09:32 PM 1.1 0.2 - 1.3 MG/DL Final 02/04/2023 02:50 PM 1.1 0.2 - 1.2 MG/DL Final 11/29/2022 01:39 PM 0.9 0.2 - 1.2 MG/DL Final 10/27/2022 10:32 AM 1.5 (H) 0.2 - 1.2 MG/DL Final ALT Date/Time Value Ref Range Status 03/21/2023 07:35 AM 13 <50 IU/L Final Comment: Testing performed at [place], [place] [address] 03/16/2023 05:53 PM 21 <50 IU/L Final 02/26/2023 09:32 PM 17 <50 IU/L Final 02/04/2023 02:50 PM 14 (L) 17 - 63 IU/L Final 11/29/2022 01:39 PM 14 (L) 17 - 63 IU/L Final 10/27/2022 10:32 AM 12 (L) 17 - 63 IU/L Final 09/13/2022 11:05 AM 13 (L) 17 - 63 IU/L Final ESTIMATED GFR, NON AMER Date/Time Value Ref Range Status 03/22/2023 05:51 AM 124 ml/min/1.73sq.m Final 03/21/2023 07:35 AM 148 ml/min/1.73sq.m Final 03/20/2023 05:33 AM 124 ml/min/1.73sq.m Final 03/19/2023 05:19 AM 124 ml/min/1.73sq.m Final 03/18/2023 04:47 AM 124 ml/min/1.73sq.m Final 03/17/2023 05:26 AM 183 ml/min/1.73sq.m Final 03/16/2023 05:53 PM 151 ml/min/1.73sq.m Final ESTIMATED GFR, Date/Time Value Ref Range Status 03/22/2023 05:51 AM 150 ml/min/1.73sq.m Final 03/21/2023 07:35 AM 179 ml/min/1.73sq.m Final 03/20/2023 05:33 AM 150 ml/min/1.73sq.m Final 03/19/2023 05:19 AM 150 ml/min/1.73sq.m Final 03/18/2023 04:47 AM 150 ml/min/1.73sq.m Final 03/17/2023 05:26 AM 221 ml/min/1.73sq.m Final 03/16/2023 05:53 PM 183 ml/min/1.73sq.m Final GFR COMMENT Date/Time Value Ref Range Status 03/22/2023 05:51 AM Average GFR for 50-59 years old = 93. Final Comment: Chronic Kidney disease, GFR = <60. Kidney failure, GFR = <15. The GFR estimate is not adjusted for extreme body surface area or acute process, nor has it been validated for women or ethnic groups other than and . Testing performed at [place], [place] [address] CBC Lab Results Component Value Date WBC 2.6 (L) 03/22/2023 HGB 9.8 (L) 03/22/2023 HCT 30.5 (L) 03/22/2023 PLATELET 101 (L) 03/22/2023 MCV 71.6 (L) 03/22/2023 EDIF Lab Results Component Value Date RBCDISTRIBU 16.4 (H) 03/22/2023 EOSINOPHILS 11.1 (H) 03/22/2023 EOSINOPHILS 0.3 03/22/2023 BASOPHILS 0.7 03/22/2023 BASOPHILS 0.0 03/22/2023 LYMPHOCYTABS 0.7 (L) 03/22/2023 PLATELET 101 (L) 03/22/2023 MPV 8.5 03/22/2023 Lab Results Component Value Date SODIUM 137 03/22/2023 POTASSIUM 4.4 03/22/2023 CHLORIDE 103 03/22/2023 CO2 31 (H) 03/22/2023 BUN 27 (H) 03/22/2023 CREATSERUM 0.70 03/22/2023 GLUCOSE 102 (H) 03/22/2023 Micro Blood culture 03/17 no growth Wound RLE 03/17: NOF Nares 03/16-, history of previous MSSA Left lower extremity wounds 03/11 with Enterococcus sensitive to ampicillin Enterococcus Faecalis Group D Ampicillin <=2 SUSCEPT... SS Gentamicin High Level RESISTANT R PENICILLIN G 2 SUSCEPTIBLE SS Streptomycin High Level SUSCEPTIBLE S Vancomycin 1 SUSCEPTIBLE SS Susceptibility Comments Enterococcus Faecalis Group D ENTEROCOCCUS FAECALIS GROUP D Specimen Collected: 03/11/23 12:23 Last Resulted: 03/14/23 11:24 Lab Flowsheet Order Details View Encounter Lab and Collection Details Routing Result History View All Conversations on this Encounter Result Care Coordination Patient Communication Add Comments Not seen Back to Top Result Report CULTURE WOUND (Order #[id number]) on 03/11/23 View [email or web address] Info CULTURE WOUND (Order #[id number]) on 03/11/23 CULTURE WOUND: Patient Communication Add Comments Not seen Collection Information Specimen ID: [id number] Swab LEG Collected: 03/11/2023 12:23 PM 200 Received: 03/11/2023 12:23 PM Resulting Agency: [facility] - [address] [facility] [address] [place] [address] Wound culture 02/27 with MSSA Staphylococcus aureus Clindamycin <=0.25 SUSC... SS Erythromycin >=8 RESISTANT R Gentamicin <=0.5 SUSCE... SS Inducible Clindamycin Resistance NEGATIVE S Levofloxacin 0.25 SUSCEP... SS Linezolid 2 SUSCEPTIBLE SS Oxacillin 0.5 SUSCEPT... SS PENICILLIN G >=0.5 RESIS... R Rifampin <=0.5 SUSCE... SS Tetracycline <=1 SUSCEPT... SS Trimethoprim/Sulfamethoxazol <=10 SUSCEP... SS Vancomycin <=0.5 SUSCE... SS No orders to display ASSESSMENT AND PLAN . Carmen Gilman 57 y.o. admitted for lower extremity wounds and worsening infections in the setting of a history of pancytopenia, end-stage liver disease and history of drug and alcohol use Left lower extremity laceration/wound infection -Traumatic injury on 02/25 -nares shows MSSA during early February admission, but follow up testing negative -Blood cultures 02/26 and 02/27 no growth -Wound culture 02/27 MSSA; MSSA is likely the main pathogen, also with a bacillus species on file which is likely more of a colonizer of the skin. -culture also showed Enterococcus on 03/19 but this is more likely a colonizer -ultrasound negative for DVT but does show some reactive inguinal lymph nodes -s/p cefepime and Vancomycin ended 03/03 and transitioned to oral Keflex 500 mg 4 times a day for 8 days, 03/03-03/11, then to cefadroxil, but he never picked up the medication -local wound care -no clear indications for surgical consult at this time Right lower extremity soft tissue infection -appearance is consistent with an impetigo like infection -check culture but most likely Staphylococcus or Streptococcus given appearance the patient is at risk for other organisms given his living situation and comorbidities; ordered 03/17 but no current results -Unasyn 03/16-current -clindamycin 03/17-03/19 and then discontinued -no evidence of sepsis with normal CRP and lactate levels -blood culture 03/17 NGTD -wound culture 03/17 with normal skin sobeida -local dressings, wound care with elevation and fluid management -Midline in place 03/21 -SNF placement pending -Weekly cbc, cmp and crp -follow up in infectious disease clinic 7 days after discharge and then will assess if IV abx can be discontinued at that time Hepatitis C - INR 1.16 mildly elevated, fibrosure 0.78 consistent with cirrhosis at initial eval, alpha-fetoprotein which was normal -NS5A genotype 3 resistance testing: negative -Hx of decompensated cirrhosis given varices noted. -S/p daily fixed dosing of sofosbuvir 400mg/velpatasvir 100mg (epclusa) x 24 weeks, 08/23/22-current x 24 weeks; completed treatment in early February -Plan SVR in 3 months after treatment ended Cirrhosis/esophageal varices -Patient has seen GI specialist -Testing including ISSAC, Anca, teddy, antimitochondrial antibody, EBV, CMV, ceruloplasmin were normal -EGD with varices, managed by GI -LFTs within normal limits 03/21/2023 Positive hepatitis B core antibody -Patient is surface antibody positive but surface antigen negative -Obtained hepatitis B DNA level 06/09 which was negative Drug use -Recommend ongoing cessation, recent positive cocaine test during admission in February -patient endorses using marijuana -recommend cessation of drug use and this was discussed -drug screen positive for cocaine metabolite, benzodiazepines and buprenorphine -Recommend drug cessation / program Health care maintenance -Patient is immune against hepatitis A and hepatitis B based on serologies -Recommend influenza, coronavirus, shingles, pneumococcal vaccinations but the patient has deferred previously History of alcohol abuse -Currently off of alcohol Pancytopenia -ongoing history of pancytopenia, likely due to underlying liver disease -patient seeing student services vice president Dr Dahl -Positive testing for positive platelet antibodies IIB/IIIA, possible ITP -Possible thalassemia, electrophoresis was not performed though according to lab review -reticulocyte percentage 2.2, iron, ferritin, B12 and folate normal in past -patient seeing student services vice president Dr Dahl -Positive testing for positive platelet antibodies IIB/IIIA, possible ITPl Soluble transferrin elevated 27 -White count 2.2, 2.5, 2.6, 2.1, 2.4, 2.6 -Hemoglobin 10, 9.9, 9.3, 9.8, 9.6, 9.8 -Platelets of 91, 81, 87, 94, 95, 101 -Stably low, follow up in Hematology Clinic Obesity -Patient with ongoing efforts to lose weight -BMI 31 Right lower extremity wound/feet& toe deformities -Patient saw podiatry Dr. Pealyo in [facility] and then to [facility] with Dr. Bryan; plan shave procedure once legs further healed noted -outpatient Podiatry follow-up for possible surgery once infections and upper area wounds are improved Incarceration history -Patient concerned that he may have been exposed to tuberculosis and TB testing was negative Hx of MSSA colonization -Positive 02/27 -Repeat testing negative 03/16 Lymphedema -Chronic swelling noted -Elevation and diuretics -history of Unna boot use, none current -Ultrasound without DVT but did show reactive adenopathy COPD.RAD -inhalers/BTs Disposition -Pending [facility] in [place] -follow up in infectious disease clinic 7 days after discharge Nathan Hayden MD 03/22/23 0940 Time In/Out Time In 0940 Time Out 0951 Total Visit Time 11 minutes Total Treatment Time (skilled, billable minutes) 11 minutes Subjective RN Approved Intervention as tolerated Existing Precautions/Restrictions fall Subjective Reports Pt supine in bed upon arrival. Reports he already completed ADLs this morning but agreeable to UE exercises. Cognitive Status Examination Level of Consciousness alert;cooperative General Pain Documentation (Adult, OB, Peds) Presence of Pain complains of pain/discomfort Pain Location shoulder, right Select Pain Scale DVPRS (Defense and Veterans Pain Rating Scale) (Adult-Cognitively Intact) DVPRS (Defense and Veterans Pain Rating Scale) DVPRS: Rest 4- mild pain DVPRS: Activity 4- mild pain Objective Therapeutic Exercise Seen for UE exercises to increase activity tolerance for ADLs. Pt completed 1 set x 10-15 reps of bilateral UE HEP with level 1 theraband within pt's tolerance. Pt reported he was only up to one set of exercises this date due to fatigue. Assessment Assessment Narrative Tolerated OT treatment fairly well with good carryover of technique of exercises. Plan Plan for next session Continue OT per plan of care. Pt was left supine in bed at end of session with call button and tray table within reach. All needs met upon exit. ROSA Moreno, OTR/L 03/22/2023 Call received from [facility]. They have received prior auth for Mr Gilman to be admitted. Visit with Mr Gilman, update given. Reassured him that transportation will be arranged once discharge order is entered by physician and he verbalized understanding and agreement with this plan. All arrangements are in place for discharge today. Case management is available as needed. Hospitalist Medicine Daily Progress Note SUBJECTIVE: Patient complains of pain and also discomfort at picc line site OBJECTIVE FINDINGS: Physical Exam: Blood pressure 144/60, pulse 71, temperature 97.8 F (36.6 C), temperature source Oral, resp. rate 19, height 1.829 m (6' 0.01"), weight 104.3 kg (230 lb), SpO2 97 %. Gen: NAD, pleasant HEENT:NC/AT, EOMI Chest: normal respiratory effort, no use of accessory muscles. Lungs are clear to auscultation, no rhonchi or rales. Cardiovascular: RRR. S1, S2 normal. No murmur, rub or gallop. Pulses equal and intact throughout Abdomen: +BS, No Masses, No Tenderness Extremities:wrapped Neuro: No focal deficits, moving all 4 extremities. Data Review: All labs reviewed in the EMR Bun/Creat/Cl/CO2/Glucose: 28/0.60/101/29/109 (03/21 735) Na/K+/Phos/Mg/Ca: 135/4.4/3.5/1.9/7.5 (03/21 735) WBC/Hgb/Hct/Plts: 2.4/9.6/29.6/95 (03/21 735) IMPRESSION/PLAN: Active Problems: Drug abuse Anemia , unspecified Benign hypertension Asthma Idiopathic thrombocytopenic purpura (ITP) Leukopenia Chronic hepatitis C without hepatic coma Bilateral cellulitis of lower leg Cellulitis and abscess of foot D/w dr hayden Cont iv atbx Ss for [facility] auth pending See orders [facility] here and has met with Mr Gilman. She states they will accept Mr Gilman and have will start prior auth. Updated clinical sent to [facility]. She states they have not started prior auth yet. [facility] has instructed she do an on sight visit and is on her way now. Case management to follow. 03/21/23 1313 Time In/Out Time In 1245 Time Out 1313 Total Visit Time 28 minutes Total Treatment Time (skilled, billable minutes) 28 minutes Subjective Existing Precautions/Restrictions Fall Cognitive Status Examination Personal Safety and Judgment at risk behaviors demonstrated General Pain Documentation (Adult, OB, Peds) Presence of Pain complains of pain/discomfort Pain Location leg, left;leg, right Pain Management Interventions activity minimized Objective Seen for ADL training. Performed supine to sit with use of grab rail and SBA. Ambulated within room using walker with assist for IV transport and SBA/CGA. Completed toilet transfer and toileting with indirect supervision per patient insistance. Completed grooming task in standing with SBA. Assessment Assessment Narrative Improved ADL. Clinical Impression Continue care plan yes PA Garcia Summary: RD Progress Note NUTRITION FOLLOW-UP AND RECOMMENDATIONS Carmen Gilman is a 57 y.o. male 1965 Active Problems: Drug abuse Anemia , unspecified Benign hypertension Asthma Idiopathic thrombocytopenic purpura (ITP) Leukopenia Chronic hepatitis C without hepatic coma Bilateral cellulitis of lower leg Cellulitis and abscess of foot Past Medical History: Diagnosis Date Asthma Essential hypertension, benign MRSA (methicillin resistant staph aureus) culture positive rt. lower posteria leg Current Facility-Administered Medications Medication Dose Route Frequency Provider Last Rate Last Admin Acetaminophen (TYLENOL) tablet 650 mg 650 mg Oral Q4H PRN Nestor Alonzo MD Ampicillin-Sulbactam Sodium (UNASYN) 3 g in sodium chloride 0.9% (MB PLUS) 100 mL (total volume) IVPB 3 g Intravenous Q6H Nestor Alonzo MD 200 mL/hr at 03/21/23 0558 3 g at 03/21/23 0558 bisacodyl (DULCOLAX) suppository 10 mg 10 mg Rectal Daily PRN Nestor Alonzo MD Buprenorphine (SUBUTEX) sublingual tablet 8 mg 8 mg Sublingual Daily Jolantamia Ramirezne, SUSTAINABILITY COORDINATOR-ENVIRONMENTAL EMERGENCIES PLANNER 8 mg at 03/21/23 0833 collagenase (SANTYL) ointment 1 Application 1 Application Topical Daily Power Nelson MD 1 Application at 03/21/23 0835 Docusate (COLACE) capsule 100 mg 100 mg Oral Q12H Nestor Alonzo MD 100 mg at 03/21/23 0832 Enoxaparin Sodium (LOVENOX) injection 40 mg 40 mg Subcutaneous QHS Isabel Tang CNP 40 mg at 03/20/23 2045 Fluticasone-Salmeterol (ADVAIR HFA) 115-21 MCG/ACT inhaler 2 puff 2 puff Inhalation BID Isabel Tang CNP 2 puff at 03/21/23 0717 furOSEmide (LASIX) tablet 40 mg 40 mg Oral Daily Jolanta Crook, SUSTAINABILITY COORDINATOR-ENVIRONMENTAL EMERGENCIES PLANNER 40 mg at 03/21/23 0833 Gabapentin (NEURONTIN) capsule 400 mg 400 mg Oral 4x daily Isabel Tang CNP 400 mg at 03/21/23 0832 hydrOXYzine HCl (ATARAX) tablet 25 mg 25 mg Oral TID PRN Isabel Tang CNP 25 mg at 03/19/23 2149 Ipratropium-albuterol (DUONEB) 0.5-2.5 (3) MG/3ML nebulizer solution 3 mL 3 mL Nebulization Q4H PRN Isabel Tang CNP Ketorolac (TORADOL) injection 15 mg 15 mg Intravenous Q6H PRN Isabel Tang CNP Labetalol (NORMODYNE) injection 20 mg 20 mg Intravenous Q6H PRN Isabel Tang CNP Magnesium sulfate 2 g/50 ml in sterile water premix IVPB 2 g 50 mL (total volume) 2 g Intravenous Daily Isabel Tang CNP 2 g at 03/19/23 0959 Melatonin tablet 6 mg 6 mg Oral QHS PRN Isabel Tang CNP 6 mg at 03/19/23 0035 Ondansetron 4mg/2ml (ZOFRAN) injection 4 mg 4 mg Intravenous Q4H PRN Nestor Alonzo MD Pantoprazole (PROTONIX) tablet DR 40 mg 40 mg Oral Daily Isabel Tang CNP 40 mg at 03/21/23 0833 Potassium chloride (K-DUR) tablet ER 40 mEq 40 mEq Oral Daily Isabel Tang CNP Or potassium chloride 40 mEq in 0.9% sodium chloride 500 ml IVPB 40 mEq Intravenous Daily Isabel Tang CNP traMADol (ULTRAM) tablet 100 mg 100 mg Oral Q4H PRN Isabel Tang CNP 100 mg at 03/21/23 0051 triamcinolone (KENALOG) 0.1 % cream 1 Application 1 Application Topical BID Power Nelson MD 1 Application at 03/21/23 0835 HEMOGLOBIN (HGB) Date Value Ref Range Status 03/21/2023 9.6 (L) 14.0 - 18.0 G/DL Final HEMATOCRIT (HCT) Date Value Ref Range Status 03/21/2023 29.6 (L) 42.0 - 52.0 % Final MEAN CELL VOLUME Date Value Ref Range Status 03/21/2023 71.2 (L) 80.0 - 100.0 FL Final No components found for: "MEAN CELL HGB" IRON Date Value Ref Range Status 03/02/2023 75 49 - 181 UG/DL Final TOTAL IRON BINDING Date Value Ref Range Status 03/02/2023 235 (L) 250 - 450 UG/DL Final FERRITIN Date Value Ref Range Status 03/02/2023 70 17.9 - 464 NG/ML Final VITAMIN B12 Date Value Ref Range Status 03/02/2023 327 239 - 931 PG/ML Final No components found for: "FOLIC ACID" SODIUM Date Value Ref Range Status 03/21/2023 135 (L) 137 - 145 MMOL/L Final POTASSIUM Date Value Ref Range Status 03/21/2023 4.4 3.5 - 5.1 MMOL/L Final PHOSPHORUS Date Value Ref Range Status 03/21/2023 3.5 2.5 - 4.5 MG/DL Final CHLORIDE Date Value Ref Range Status 03/21/2023 101 98 - 107 MMOL/L Final Comment: Please note: Triglyceride levels of 600mg/dL or higher may positively bias chloride results by approximately 2.1 mmol CALCIUM Date Value Ref Range Status 03/21/2023 7.5 (L) 8.4 - 10.2 MG/DL Final Albumin Date Value Ref Range Status 03/21/2023 PENDING G/dl Incomplete 03/21/2023 3.2 2.9 - 5.3 G/DL Final No components found for: "PROTEIN TOTAL" No components found for: "A1C" Wt Readings from Last 3 Encounters: 03/16/23 99.8 kg (220 lb) 03/11/23 101.1 kg (222 lb 12.8 oz) 02/27/23 105.3 kg (232 lb 3.2 oz) Ht Readings from Last 3 Encounters: 03/17/23 1.829 m (6' 0.01") 03/11/23 1.829 m (6') 02/27/23 1.829 m (6') Body mass index is 31.19 kg/m . Current Diet Orders Procedures DIET REGULAR Oral Supplement Ensure Max BID Standing Status: Standing Number of Occurrences: 1 Order Specific Question: Additional Modifier: Answer: Oral Supplement Nutritional Intake for 03/21/2023 0000 - 03/21/2023 0944 Total Calories -- kcal Total Volume 1,735 mL GLUCOSE, POINT OF CARE Date Value Ref Range Status 11/13/2021 111 (H) 70 - 100 MG/DL Final Glucose Date Value Ref Range Status 03/21/2023 109 (H) 70 - 100 MG/DL Final Comment: NORMAL <100 mg/dL PREDIABETES 101-126 mg/dL DIABETES 126 mg/dL or higher Patient reviewed during IDT rounds this am. PO intakes listed as 75%x1 meal, all others are 100% intakes documented. Weight and BMI listed above. Patient weight is decreasing as fluid is coming off. Pertinent medications reviewed. Pertinent labs reviewed. Pt continues to receive Ensure Max BID for added pro and kcal. PES: [id number] Increased nutrient needs (specify: pro, kcal) related to wound healing as evidenced by failing outpatient tx for ulcers and cellulitis of BLE. Estimated needs: Calories: 1192-4939 kcal, (25-30 kcal/kg AdjBW), Protein: 105-130 g (1.2-1.5 g/kg AdjBW), Fluid: 1mL/kcal or per provider choice REC: 1. No new recs at this time. Will continue to monitor wt., labs and PO intakes and rec changes prn. ANETTE Huff 03/21/23 9:45 AM 03/21/23 0855 Time In/Out Time In 0855 Time Out 0905 Total Visit Time 10 minutes Total Treatment Time (skilled, billable minutes) 10 minutes Subjective RN Approved Intervention as tolerated Existing Precautions/Restrictions fall Subjective Reports This PT approached by nursing surgical services director. States patient would like to get up to chair and requests assistance. Cognitive Status Examination Level of Consciousness alert;cooperative Personal Safety and Judgment at risk behaviors demonstrated Objective Therapeutic Interventions Patient sitting EOB upon arrival, requesting to get up to chair. Socks donned by nursing surgical services director. He requested height of bed be elevated to prepare for sit to stand. He stood with CGA x2 to FWW from elevated bed height. Increased time required. At that time, the PICC team arrived for placement of midline and requested patient return to bed. He took several side steps to HOB. Increased time required. Decreased step height noted. Stand to sit with CGA. He was able to lift LE's onto bed but was mod-maxAx2 for repositioning in bed. LE's elevated on pillows for edema management. Patient left in care of PICC team. Clinical Impression Co-evaluation/co-treatment performed? No simultaneous skilled care performed Continue care plan yes Today's Treatment Included ther act Therapist Recommendations At Discharge Recommendations PT Services recommended at Discharge (SNF) Assessment Rehab treatment consisted of Bed mobility training;Edema control;Transfer training Factors that modified this intervention PICC team arrived for placement of midline Plan Plan for next visit gait training Maintain frequency yes Additional Comments Patient left in bed in care of PICC team. Images from the original note were not included. Infectious Disease SUBJECTIVE History of Present Illness: Carmen Gilman 57 y.o. male with a history of multiple medical problems including a history of hepatitis-C status post recent completion of therapy, alcohol and drug use, cirrhosis with varices as well as lower extremity lymphedema and wounds. Patient had recent hospitalization and was discharged on 03/03 with a history of trauma to his left lower extremity with wound and complications of cellulitis. Patient was treated in the hospital with IV antibiotics and deescalated to Keflex on discharge. Additional history includes malnutrition, obesity, leg edema with recurrent infections, cocaine use, marijuana use, pancytopenia for which he is seen Hematology, asthma/COPD. No known allergies to antibiotics or other medications. Patient has a history of ongoing marijuana use, during recent admission was found to be positive for cocaine although he denies any current drug use or alcohol use. Patient has had a difficult social situation where he lives in a house with other people and states it is difficult to keep his legs dressed and clean. Who states lately he is had the live in his car the last 2 or 3 days. Patient states in the last 2 or 3 days his legs have worsened including bilateral lower extremity pain with new onset right lower extremity drainage and redness. Patient feels chills but no fevers reported by patient. He was previously seen in the hospital and given Keflex on discharge and then followed up in Infectious Disease Clinic on 03/11 and was changed to cefadroxil however the patient did not fruit picker the medication and had been off of antibiotics for 2-3 days prior to admission per his report. His main concern at initial consultation was lower extremity pain he denies any respiratory, abdominal or urinary or symptoms. Patient was seen in the emergency room on 03/16 and began on Unasyn. He was subsequently admitted for inpatient care and IV antibiotics. Infectious disease consult 03/17/2023, patient on Unasyn and clindamycin Interval events: 24 hour events reviewed No fevers overnight. Patient feels that his legs are improving. Pending transfer to [facility]. Midline was ordered already and pending results. Patient is having some wheezing. Tolerating Unasyn without GI upset. Patient is having less withdrawal symptoms and feeling improved. ROS A complete review of systems are negative except those consistent with HPI OBJECTIVE Past Medical History: Diagnosis Date Asthma Essential hypertension, benign MRSA (methicillin resistant staph aureus) culture positive rt. lower posteria leg Past Medical History: Diagnosis Date Asthma Essential hypertension, benign MRSA (methicillin resistant staph aureus) culture positive rt. lower posteria leg Past Surgical History: Procedure Laterality Date APPENDECTOMY BACK SURGERY FOOT SURGERY Patient Active Problem List Diagnosis Obesity: body mass index of 35.0-39.9 Hypotension Drug abuse Swelling of bilateral lower extremities Elevated d-dimer Anemia , unspecified Class 2 obesity due to excess calories without serious comorbidity in adult Hyponatremia Acute renal failure Generalized weakness Benign hypertension Asthma Idiopathic thrombocytopenic purpura (ITP) Hyperbilirubinemia Elevated INR Pancytopenia Leukopenia Lymphopenia Microcytic hypochromic anemia Elevated BUN CRP elevated Rheumatoid factor positive 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 Proteinuria Severe protein-calorie malnutrition Chronic hepatitis B without hepatic coma Chronic hepatitis C without hepatic coma Hepatosplenomegaly Bilateral cellulitis of lower leg Cellulitis Cellulitis and abscess of foot Social History Socioeconomic History Marital status: Spouse name: Not on file Number of children: Not on file Years of education: Not on file Highest education level: Not on file Occupational History Employer: UNEMPLOYED Tobacco Use Smoking status: Former Types: Cigarettes Quit date: 2007 Years since quittin.5 Smokeless tobacco: Current Types: Chew Vaping Use Vaping Use: Never used Substance and Sexual Activity Alcohol use: Not Currently Drug use: Not Currently Types: Marijuana Comment: Former Sexual activity: Yes Partners: Female Other Topics Concern Service Not Asked Blood Transfusions Not Asked Caffeine Concern Not Asked Occupational Exposure Not Asked Hobby Hazards Not Asked Sleep Concern Not Asked Stress Concern Not Asked Weight Concern Not Asked Special Diet Not Asked Back Care Not Asked Exercise Not Asked Bike Helmet Not Asked Seat Belt Not Asked Domestic Violence No Social History Narrative Not on file Social Determinants of Health Financial Resource Strain: Not on file Food Insecurity: Not on file Transportation Needs: Not on file Physical Activity: Not on file Stress: Not on file Social Connections: Not on file Intimate Partner Violence: Not on file Housing Stability: Not on file Current Facility-Administered Medications: Acetaminophen (TYLENOL) tablet 650 mg, 650 mg, Oral, Q4H PRN, Nestor Alonzo MD Ampicillin-Sulbactam Sodium (UNASYN) 3 g in sodium chloride 0.9% (MB PLUS) 100 mL (total volume) IVPB, 3 g, Intravenous, Q6H, Nestor Alonzo MD, Last Rate: 200 mL/hr at 03/21/23 1235, 3 g at 03/21/23 1235 bisacodyl (DULCOLAX) suppository 10 mg, 10 mg, Rectal, Daily PRN, Nestor Alonzo MD Buprenorphine (SUBUTEX) sublingual tablet 8 mg, 8 mg, Sublingual, Daily, Jolanta K Sgambellone, SUSTAINABILITY COORDINATOR-ENVIRONMENTAL EMERGENCIES PLANNER, 8 mg at 03/21/23 0833 collagenase (SANTYL) ointment 1 Application, 1 Application, Topical, Daily, Power Nelson MD, 1 Application at 03/21/23 0835 Docusate (COLACE) capsule 100 mg, 100 mg, Oral, Q12H, Nestor Alonzo MD, 100 mg at 03/21/23 0832 Enoxaparin Sodium (LOVENOX) injection 40 mg, 40 mg, Subcutaneous, QHS, Isabel Tang CNP, 40 mg at 03/20/23 204 Fluticasone-Salmeterol (ADVAIR HFA) 115-21 MCG/ACT inhaler 2 puff, 2 puff, Inhalation, BID, Isabel Tang CNP, 2 puff at 03/21/23 0717 furOSEmide (LASIX) tablet 40 mg, 40 mg, Oral, Daily, Jolanta Ramirezne, SUSTAINABILITY COORDINATOR-ENVIRONMENTAL EMERGENCIES PLANNER, 40 mg at 03/21/23 0833 Gabapentin (NEURONTIN) capsule 400 mg, 400 mg, Oral, 4x daily, Isabel Tang CNP, 400 mg at 03/21/23 1413 hydrOXYzine HCl (ATARAX) tablet 25 mg, 25 mg, Oral, TID PRN, Isabel Tang CNP, 25 mg at 03/19/23 2149 Ipratropium-albuterol (DUONEB) 0.5-2.5 (3) MG/3ML nebulizer solution 3 mL, 3 mL, Nebulization, Q4H PRN, Isabel Tang CNP Ketorolac (TORADOL) injection 15 mg, 15 mg, Intravenous, Q6H PRN, Isabel Tang CNP Labetalol (NORMODYNE) injection 20 mg, 20 mg, Intravenous, Q6H PRN, Isabel Tang CNP Magnesium sulfate 2 g/50 ml in sterile water premix IVPB 2 g 50 mL (total volume), 2 g, Intravenous, Daily, Isabel Tang CNP, 2 g at 03/21/23 1413 Melatonin tablet 6 mg, 6 mg, Oral, QHS PRN, Isabel Tang CNP, 6 mg at 03/19/23 0035 Ondansetron 4mg/2ml (ZOFRAN) injection 4 mg, 4 mg, Intravenous, Q4H PRN, Nestor Alonzo MD Pantoprazole (PROTONIX) tablet DR 40 mg, 40 mg, Oral, Daily, Isabel Tang CNP, 40 mg at 03/21/23 0833 Potassium chloride (K-DUR) tablet ER 40 mEq, 40 mEq, Oral, Daily OR potassium chloride 40 mEq in 0.9% sodium chloride 500 ml IVPB, 40 mEq, Intravenous, Daily, Isabel Tang CNP traMADol (ULTRAM) tablet 100 mg, 100 mg, Oral, Q4H PRN, Isabel Tang CNP, 100 mg at 03/21/23 1413 triamcinolone (KENALOG) 0.1 % cream 1 Application, 1 Application, Topical, BID, Power Nelson MD, 1 Application at 03/21/23 0835 No Known Allergies Vitals: 03/21/23 0403 03/21/23 0700 03/21/23 0757 03/21/23 1210 BP: 108/60 136/75 119/68 Pulse: 77 76 71 Resp: 17 16 18 Temp: 98.5 degrees F (36.9 degrees C) 97.7 degrees F (36.5 degrees C) 98.4 degrees F (36.9 degrees C) TempSrc: Temporal Oral Oral SpO2: 94% 93% 92% 94% Height: Intake/Output Summary (Last 24 hours) at 03/21/2023 1558 Last data filed at 03/21/2023 1413 Gross per 24 hour Intake 2493 ml Output 1000 ml Net 1493 ml Physical Exam: CONSTITUTIONAL: Alert and Oriented, in appearance with some noted wasting features, afebrile HEENT: Normocephalic and atraumatic, Sclera anicteric, PERRL, poor dentition CARDIAC: Normal rate, regular rhythm, normal heart sounds and intact distal pulses, no murmurs/rubs/clicks/gallops RESP: Effort normal. Few scattered rales and wheezes throughout, overall clear anteriorly, RA GI: Soft. Bowel sounds are normal. Nontender. Nondistended. Obese : No Suprapubic tenderness EXTREMITES: No cyanosis, clubbing; bilateral lower extremity lymphedema. Has a wound on his left tibia area with blood underneath skin Right lower extremity plantar surface and medial area with a lesion that has been chronically present. Right lower extremity has cellulitis and an impetigo like rash - less inflamed DERM: Skin is warm and dry. MUSCULARSKELETAL: No septic arthritis noted NEUROLOGIC: Fatigued in appearance but answers questions appropriately LINES: All line sites are clear and without evidence of infection LAB RESULTS: WBC (WHITE BLOOD COUNT) Date/Time Value Ref Range Status 03/21/2023 07:35 AM 2.4 (L) 3.6 - 11.0 10*3/uL Final 03/20/2023 05:33 AM 2.1 (L) 3.6 - 11.0 10*3/uL Final 03/19/2023 05:19 AM 2.6 (L) 3.6 - 11.0 10*3/uL Final 03/18/2023 04:47 AM 2.5 (L) 3.6 - 11.0 10*3/uL Final 03/17/2023 05:26 AM 2.2 (L) 3.6 - 11.0 10*3/uL Final 03/16/2023 05:53 PM 3.6 3.6 - 11.0 10*3/uL Final 03/03/2023 05:38 AM 2.8 (L) 3.6 - 11.0 10*3/uL Final HEMOGLOBIN (HGB) Date/Time Value Ref Range Status 03/21/2023 07:35 AM 9.6 (L) 14.0 - 18.0 G/DL Final 03/20/2023 05:33 AM 9.8 (L) 14.0 - 18.0 G/DL Final 03/19/2023 05:19 AM 9.3 (L) 14.0 - 18.0 G/DL Final 03/18/2023 04:47 AM 9.9 (L) 14.0 - 18.0 G/DL Final 03/17/2023 05:26 AM 10.0 (L) 14.0 - 18.0 G/DL Final 03/16/2023 05:53 PM 10.5 (L) 14.0 - 18.0 G/DL Final 03/03/2023 05:38 AM 9.3 (L) 14.0 - 18.0 G/DL Final HEMATOCRIT (HCT) Date/Time Value Ref Range Status 03/21/2023 07:35 AM 29.6 (L) 42.0 - 52.0 % Final 03/20/2023 05:33 AM 30.0 (L) 42.0 - 52.0 % Final 03/19/2023 05:19 AM 28.9 (L) 42.0 - 52.0 % Final 03/18/2023 04:47 AM 30.5 (L) 42.0 - 52.0 % Final 03/17/2023 05:26 AM 31.4 (L) 42.0 - 52.0 % Final 03/16/2023 05:53 PM 33.6 (L) 42.0 - 52.0 % Final 03/03/2023 05:38 AM 29.1 (L) 42.0 - 52.0 % Final PLATELET COUNT Date/Time Value Ref Range Status 03/21/2023 07:35 AM 95 (L) 130 - 400 10*3/uL Final 03/20/2023 05:33 AM 94 (L) 130 - 400 10*3/uL Final 03/19/2023 05:19 AM 87 (L) 130 - 400 10*3/uL Final 03/18/2023 04:47 AM 81 (L) 130 - 400 10*3/uL Final 03/17/2023 05:26 AM 91 (L) 130 - 400 10*3/uL Final 03/16/2023 05:53 PM 106 (L) 130 - 400 10*3/uL Final 03/03/2023 05:38 AM 96 (L) 130 - 400 10*3/uL Final POTASSIUM Date/Time Value Ref Range Status 03/21/2023 07:35 AM 4.4 3.5 - 5.1 MMOL/L Final 03/20/2023 05:33 AM 4.3 3.5 - 5.1 MMOL/L Final 03/19/2023 05:19 AM 4.1 3.5 - 5.1 MMOL/L Final 03/18/2023 04:47 AM 4.0 3.5 - 5.1 MMOL/L Final 03/17/2023 05:26 AM 3.6 3.5 - 5.1 MMOL/L Final 03/16/2023 05:53 PM 3.5 3.5 - 5.1 MMOL/L Final 03/03/2023 05:38 AM 4.3 3.5 - 5.1 MMOL/L Final CHLORIDE Date/Time Value Ref Range Status 03/21/2023 07:35 AM 101 98 - 107 MMOL/L Final Comment: Please note: Triglyceride levels of 600mg/dL or higher may positively bias chloride results by approximately 2.1 mmol 03/20/2023 05:33 AM 98 98 - 107 MMOL/L Final Comment: Please note: Triglyceride levels of 600mg/dL or higher may positively bias chloride results by approximately 2.1 mmol 03/19/2023 05:19 AM 99 98 - 107 MMOL/L Final Comment: Please note: Triglyceride levels of 600mg/dL or higher may positively bias chloride results by approximately 2.1 mmol 03/18/2023 04:47 AM 97 (L) 98 - 107 MMOL/L Final Comment: Please note: Triglyceride levels of 600mg/dL or higher may positively bias chloride results by approximately 2.1 mmol 03/17/2023 05:26 AM 96 (L) 98 - 107 MMOL/L Final Comment: Please note: Triglyceride levels of 600mg/dL or higher may positively bias chloride results by approximately 2.1 mmol 03/16/2023 05:53 PM 96 (L) 98 - 107 MMOL/L Final Comment: Please note: Triglyceride levels of 600mg/dL or higher may positively bias chloride results by approximately 2.1 mmol 03/03/2023 05:38 AM 113 (H) 98 - 107 MMOL/L Final Comment: Please note: Triglyceride levels of 600mg/dL or higher may positively bias chloride results by approximately 2.1 mmol CARBON DIOXIDE (CO2) Date/Time Value Ref Range Status 03/21/2023 07:35 AM 29 22 - 30 MMOL/L Final 03/20/2023 05:33 AM 33 (H) 22 - 30 MMOL/L Final 03/19/2023 05:19 AM 33 (H) 22 - 30 MMOL/L Final 03/18/2023 04:47 AM 31 (H) 22 - 30 MMOL/L Final 03/17/2023 05:26 AM 32 (H) 22 - 30 MMOL/L Final 03/16/2023 05:53 PM 33 (H) 22 - 30 MMOL/L Final 03/03/2023 05:38 AM 25 22 - 30 MMOL/L Final GLUCOSE, POINT OF CARE Date/Time Value Ref Range Status 11/13/2021 01:10 PM 111 (H) 70 - 100 MG/DL Final Glucose Date/Time Value Ref Range Status 03/21/2023 07:35 AM 109 (H) 70 - 100 MG/DL Final Comment: NORMAL <100 mg/dL PREDIABETES 101-126 mg/dL DIABETES 126 mg/dL or higher 03/20/2023 05:33 AM 120 (H) 70 - 100 MG/DL Final Comment: NORMAL <100 mg/dL PREDIABETES 101-126 mg/dL DIABETES 126 mg/dL or higher 03/19/2023 05:19 AM 103 (H) 70 - 100 MG/DL Final Comment: NORMAL <100 mg/dL PREDIABETES 101-126 mg/dL DIABETES 126 mg/dL or higher 03/18/2023 04:47 AM 97 70 - 100 MG/DL Final Comment: NORMAL <100 mg/dL PREDIABETES 101-126 mg/dL DIABETES 126 mg/dL or higher 03/17/2023 05:26 AM 90 70 - 100 MG/DL Final Comment: NORMAL <100 mg/dL PREDIABETES 101-126 mg/dL DIABETES 126 mg/dL or higher 03/16/2023 05:53 PM 116 (H) 70 - 100 MG/DL Final Comment: NORMAL <100 mg/dL PREDIABETES 101-126 mg/dL DIABETES 126 mg/dL or higher 03/03/2023 05:38 AM 93 70 - 100 MG/DL Final Comment: NORMAL <100 mg/dL PREDIABETES 101-126 mg/dL DIABETES 126 mg/dL or higher BUN Date/Time Value Ref Range Status 03/21/2023 07:35 AM 28 (H) 7 - 20 MG/DL Final 03/20/2023 05:33 AM 26 (H) 7 - 20 MG/DL Final 03/19/2023 05:19 AM 25 (H) 7 - 20 MG/DL Final 03/18/2023 04:47 AM 22 (H) 7 - 20 MG/DL Final 03/17/2023 05:26 AM 16 7 - 20 MG/DL Final 03/16/2023 05:53 PM 15 7 - 20 MG/DL Final 03/03/2023 05:38 AM 16 7 - 20 MG/DL Final CREATININE SERUM Date/Time Value Ref Range Status 03/21/2023 07:35 AM 0.60 (L) 0.7 - 1.2 MG/DL Final 03/20/2023 05:33 AM 0.70 0.7 - 1.2 MG/DL Final 03/19/2023 05:19 AM 0.70 0.7 - 1.2 MG/DL Final 03/18/2023 04:47 AM 0.70 0.7 - 1.2 MG/DL Final 03/17/2023 05:26 AM 0.50 (L) 0.7 - 1.2 MG/DL Final 03/16/2023 05:53 PM 0.59 (L) 0.70 - 1.20 MG/DL Final 03/03/2023 05:38 AM 0.50 (L) 0.7 - 1.2 MG/DL Final Albumin Date/Time Value Ref Range Status 03/21/2023 07:35 AM 3.2 (L) 3.5 - 5.0 G/dl Final 03/21/2023 07:35 AM 3.2 2.9 - 5.3 G/DL Final 03/20/2023 05:33 AM 2.9 (L) 3.5 - 5.0 G/dl Final 03/19/2023 05:19 AM 2.8 (L) 3.5 - 5.0 G/dl Final 03/18/2023 04:47 AM 2.9 (L) 3.5 - 5.0 G/dl Final 03/17/2023 05:26 AM 3.0 (L) 3.5 - 5.0 G/dl Final 03/16/2023 05:53 PM 3.6 3.5 - 5.0 G/dl Final CALCIUM Date/Time Value Ref Range Status 03/21/2023 07:35 AM 7.5 (L) 8.4 - 10.2 MG/DL Final 03/20/2023 05:33 AM 7.3 (L) 8.4 - 10.2 MG/DL Final 03/19/2023 05:19 AM 7.4 (L) 8.4 - 10.2 MG/DL Final 03/18/2023 04:47 AM 7.4 (L) 8.4 - 10.2 MG/DL Final 03/17/2023 05:26 AM 7.9 (L) 8.4 - 10.2 MG/DL Final 03/16/2023 05:53 PM 8.3 (L) 8.4 - 10.2 MG/DL Final 03/03/2023 05:38 AM 8.0 (L) 8.4 - 10.2 MG/DL Final ALKALINE PHOSPHATASE Date/Time Value Ref Range Status 03/21/2023 07:35 AM 91 38 - 126 IU/L Final 03/16/2023 05:53 PM 53 38 - 126 IU/L Final 02/26/2023 09:32 PM 54 38 - 126 IU/L Final 02/04/2023 02:50 PM 67 38 - 126 IU/L Final 11/29/2022 01:39 PM 64 38 - 126 IU/L Final 10/27/2022 10:32 AM 66 38 - 126 IU/L Final 09/13/2022 11:05 AM 60 38 - 126 IU/L Final AST Date/Time Value Ref Range Status 03/21/2023 07:35 AM 26 17 - 59 IU/L Final 03/16/2023 05:53 PM 38 17 - 59 IU/L Final 02/26/2023 09:32 PM 26 17 - 59 IU/L Final 02/04/2023 02:50 PM 21 15 - 41 IU/L Final 11/29/2022 01:39 PM 25 15 - 41 IU/L Final 10/27/2022 10:32 AM 22 15 - 41 IU/L Final 09/13/2022 11:05 AM 25 15 - 41 IU/L Final BILIRUBIN, TOTAL Date/Time Value Ref Range Status 03/21/2023 07:35 AM 0.9 0.2 - 1.3 MG/DL Final 03/16/2023 05:53 PM 1.6 (H) 0.2 - 1.3 MG/DL Final 02/28/2023 04:47 AM 0.7 Final Comment: Reference range: 0.0 to 1.2 Unit: mg/dL 02/26/2023 09:32 PM 1.1 0.2 - 1.3 MG/DL Final 02/04/2023 02:50 PM 1.1 0.2 - 1.2 MG/DL Final 11/29/2022 01:39 PM 0.9 0.2 - 1.2 MG/DL Final 10/27/2022 10:32 AM 1.5 (H) 0.2 - 1.2 MG/DL Final ALT Date/Time Value Ref Range Status 03/21/2023 07:35 AM 13 <50 IU/L Final Comment: Testing performed at [place], [place] [address] 03/16/2023 05:53 PM 21 <50 IU/L Final 02/26/2023 09:32 PM 17 <50 IU/L Final 02/04/2023 02:50 PM 14 (L) 17 - 63 IU/L Final 11/29/2022 01:39 PM 14 (L) 17 - 63 IU/L Final 10/27/2022 10:32 AM 12 (L) 17 - 63 IU/L Final 09/13/2022 11:05 AM 13 (L) 17 - 63 IU/L Final ESTIMATED GFR, NON AMER Date/Time Value Ref Range Status 03/21/2023 07:35 AM 148 ml/min/1.73sq.m Final 03/20/2023 05:33 AM 124 ml/min/1.73sq.m Final 03/19/2023 05:19 AM 124 ml/min/1.73sq.m Final 03/18/2023 04:47 AM 124 ml/min/1.73sq.m Final 03/17/2023 05:26 AM 183 ml/min/1.73sq.m Final 03/16/2023 05:53 PM 151 ml/min/1.73sq.m Final 03/03/2023 05:38 AM 183 ml/min/1.73sq.m Final ESTIMATED GFR, Date/Time Value Ref Range Status 03/21/2023 07:35 AM 179 ml/min/1.73sq.m Final 03/20/2023 05:33 AM 150 ml/min/1.73sq.m Final 03/19/2023 05:19 AM 150 ml/min/1.73sq.m Final 03/18/2023 04:47 AM 150 ml/min/1.73sq.m Final 03/17/2023 05:26 AM 221 ml/min/1.73sq.m Final 03/16/2023 05:53 PM 183 ml/min/1.73sq.m Final 03/03/2023 05:38 AM 221 ml/min/1.73sq.m Final GFR COMMENT Date/Time Value Ref Range Status 03/21/2023 07:35 AM Average GFR for 50-59 years old = 93. Final Comment: Chronic Kidney disease, GFR = <60. Kidney failure, GFR = <15. The GFR estimate is not adjusted for extreme body surface area or acute process, nor has it been validated for women or ethnic groups other than and . Testing performed at [place], [place] [address] CBC Lab Results Component Value Date WBC 2.4 (L) 03/21/2023 HGB 9.6 (L) 03/21/2023 HCT 29.6 (L) 03/21/2023 PLATELET 95 (L) 03/21/2023 MCV 71.2 (L) 03/21/2023 EDIF Lab Results Component Value Date RBCDISTRIBU 16.4 (H) 03/21/2023 EOSINOPHILS 5 03/21/2023 BASOPHILS 1 03/21/2023 LYMPHOCYTABS 0.8 (L) 03/19/2023 PLATELET 95 (L) 03/21/2023 MPV 8.1 03/21/2023 Lab Results Component Value Date SODIUM 135 (L) 03/21/2023 POTASSIUM 4.4 03/21/2023 CHLORIDE 101 03/21/2023 CO2 29 03/21/2023 BUN 28 (H) 03/21/2023 CREATSERUM 0.60 (L) 03/21/2023 GLUCOSE 109 (H) 03/21/2023 Micro Blood culture 03/17 no growth Wound RLE 03/17: NOF Nares 03/16-, history of previous MSSA Left lower extremity wounds 03/11 with Enterococcus sensitive to ampicillin Enterococcus Faecalis Group D Ampicillin <=2 SUSCEPT... SS Gentamicin High Level RESISTANT R PENICILLIN G 2 SUSCEPTIBLE SS Streptomycin High Level SUSCEPTIBLE S Vancomycin 1 SUSCEPTIBLE SS Susceptibility Comments Enterococcus Faecalis Group D ENTEROCOCCUS FAECALIS GROUP D Specimen Collected: 03/11/23 12:23 Last Resulted: 03/14/23 11:24 Lab Flowsheet Order Details View Encounter Lab and Collection Details Routing Result History View All Conversations on this Encounter Result Care Coordination Patient Communication Add Comments Not seen Back to Top Result Report CULTURE WOUND (Order #[id number]) on 03/11/23 View SmartLink Info CULTURE WOUND (Order #[id number]) on 03/11/23 CULTURE WOUND: Patient Communication Add Comments Not seen Collection Information Specimen ID: [id number] Swab LEG Collected: 03/11/2023 12:23 PM 200 Received: 03/11/2023 12:23 PM Resulting Agency: [address] [address] Wound culture 02/27 with MSSA Staphylococcus aureus Clindamycin <=0.25 SUSC... SS Erythromycin >=8 RESISTANT R Gentamicin <=0.5 SUSCE... SS Inducible Clindamycin Resistance NEGATIVE S Levofloxacin 0.25 SUSCEP... SS Linezolid 2 SUSCEPTIBLE SS Oxacillin 0.5 SUSCEPT... SS PENICILLIN G >=0.5 RESIS... R Rifampin <=0.5 SUSCE... SS Tetracycline <=1 SUSCEPT... SS Trimethoprim/Sulfamethoxazol <=10 SUSCEP... SS Vancomycin <=0.5 SUSCE... SS No orders to display ASSESSMENT AND PLAN . Carmen Gilman 57 y.o. admitted for lower extremity wounds and worsening infections in the setting of a history of pancytopenia, end-stage liver disease and history of drug and alcohol use Left lower extremity laceration/wound infection -Traumatic injury on 02/25 -nares shows MSSA during early February admission, but follow up testing negative -Blood cultures 02/26 and 02/27 no growth -Wound culture 02/27 MSSA; MSSA is likely the main pathogen, also with a bacillus species on file which is likely more of a colonizer of the skin. -culture also showed Enterococcus on 03/19 but this is more likely a colonizer -ultrasound negative for DVT but does show some reactive inguinal lymph nodes -s/p cefepime and Vancomycin ended 03/03 and transitioned to oral Keflex 500 mg 4 times a day for 8 days, 03/03-03/11, then to cefadroxil, but he never picked up the medication -local wound care -no clear indications for surgical consult at this time Right lower extremity soft tissue infection -appearance is consistent with an impetigo like infection -check culture but most likely Staphylococcus or Streptococcus given appearance the patient is at risk for other organisms given his living situation and comorbidities; ordered 03/17 but no current results -Unasyn 03/16-current -clindamycin 03/17-03/19 and then discontinued -no evidence of sepsis with normal CRP and lactate levels -blood culture 03/17 NGTD -wound culture 03/17 with normal skin sobeida -local dressings, wound care with elevation and fluid management -continue Unasyn , midline, SNF placement -Weekly cbc, cmp and crp -follow up in infectious disease clinic 7-10 days after discharge Hepatitis C - INR 1.16 mildly elevated, fibrosure 0.78 consistent with cirrhosis at initial eval, alpha-fetoprotein which was normal -NS5A genotype 3 resistance testing: negative -Hx of decompensated cirrhosis given varices noted. -S/p daily fixed dosing of sofosbuvir 400mg/velpatasvir 100mg (epclusa) x 24 weeks, 08/23/22-current x 24 weeks; completed treatment in early February -Plan SVR in 3 months after treatment ended Cirrhosis/esophageal varices -Patient has seen GI specialist -Testing including ISSAC, Anca, teddy, antimitochondrial antibody, EBV, CMV, ceruloplasmin were normal -EGD with varices, managed by GI -LFTs within normal limits 03/21/2023 Positive hepatitis B core antibody -Patient is surface antibody positive but surface antigen negative -Obtained hepatitis B DNA level 06/09 which was negative Drug use -Recommend ongoing cessation, recent positive cocaine test during admission in February -patient endorses using marijuana -recommend cessation of drug use and this was discussed -drug screen positive for cocaine metabolite, benzodiazepines and buprenorphine -Recommend drug cessation / program Health care maintenance -Patient is immune against hepatitis A and hepatitis B based on serologies -Recommend influenza, coronavirus, shingles, pneumococcal vaccinations but the patient has deferred previously History of alcohol abuse -Currently off of alcohol Pancytopenia -ongoing history of pancytopenia, likely due to underlying liver disease -patient seeing student services vice president Dr Dahl -Positive testing for positive platelet antibodies IIB/IIIA, possible ITP -Possible thalassemia, electrophoresis was not performed though according to lab review -reticulocyte percentage 2.2, iron, ferritin, B12 and folate normal in past -patient seeing student services vice president Dr Dahl -Positive testing for positive platelet antibodies IIB/IIIA, possible ITPl Soluble transferrin elevated 27 -White count 2.2, 2.5, 2.6, 2.1, 2.4 -Hemoglobin 10, 9.9, 9.3, 9.8, 9.6 -Platelets of 91, 81, 87, 94, 95 -Stably low, follow up in Hematology Clinic Obesity -Patient with ongoing efforts to lose weight -BMI 31 Right lower extremity wound/feet& toe deformities -Patient saw podiatry Dr. Pelayo in [facility] and then to [facility] with Dr. Bryan; plan shave procedure once legs further healed noted -outpatient Podiatry follow-up for possible surgery once infections and upper area wounds are improved Incarceration history -Patient concerned that he may have been exposed to tuberculosis and TB testing was negative Hx of MSSA colonization -Positive 02/27 -Repeat testing negative 03/16 Lymphedema -Chronic swelling noted -Elevation and diuretics -history of Unna boot use, none current -Ultrasound without DVT but did show reactive adenopathy Mildly elevating Cr -Cr 0.5, 0.7, 0.7,0.7, 0.6 -Trends stable COPD.RAD -inhalers Disposition -okay from ID perspective for discharge with midline and IV antibiotics with close infectious disease clinic follow up once the patient is stable from hospitalist standpoint for discharge -patient states he wishes to go to [facility] in [place] -follow up in infectious disease clinic 7-10 days after discharge Nathan Hayden MD [facility] LOS: 4 days SUBJECTIVE: Patient resting in bed/chair, Denies fever, chills, chest pain or sob. Is eating and drinking well. C/o pain to legs Change Dilaudid to subtex Awaiting ECF placement Midline Antibiotics per ID, midline? PHYSICAL EXAMINATION: Blood pressure 112/72, pulse 74, temperature 97.3 F (36.3 C), temperature source Oral, resp. rate 18, height 1.829 m (6' 0.01"), weight 104.3 kg (230 lb), SpO2 95 %. Gen: Comfortable in bed, no signs of distress HEENT: Normocephalic, atraumatic, Moist oral mucous membranes Neck: supple, Lungs: Clear to auscultation BL, anterior and posterior, without rales, rhonchi or wheezing Heart: Regular in rate and rhythm. Without murmur, rub or gallop Abd: Soft and non-distended. Non tender BSPx 4 Skin: No obvious rashes or cyanosis. ble wounds less redness Neuro: Grossly non-focal examination. Intake and Output: Intake/Output Summary (Last 24 hours) at 03/20/2023 0910 Last data filed at 03/20/2023 0851 Gross per 24 hour Intake 1360 ml Output 3050 ml Net -1690 ml Daily Weight: Wt Readings from Last 3 Encounters: 03/16/23 99.8 kg (220 lb) 03/11/23 101.1 kg (222 lb 12.8 oz) 02/27/23 105.3 kg (232 lb 3.2 oz) CURRENT MEDICATIONS: Current Facility-Administered Medications Medication Dose Route Frequency Provider Last Rate Last Admin Acetaminophen (TYLENOL) tablet 650 mg 650 mg Oral Q4H PRN Nestor Alonzo MD Ampicillin-Sulbactam Sodium (UNASYN) 3 g in sodium chloride 0.9% (MB PLUS) 100 mL (total volume) IVPB 3 g Intravenous Q6H Nestor Alnozo MD 200 mL/hr at 03/20/23 0559 3 g at 03/20/23 0559 bisacodyl (DULCOLAX) suppository 10 mg 10 mg Rectal Daily PRN Nestor Alonzo MD Buprenorphine (SUBUTEX) sublingual tablet 8 mg 8 mg Sublingual Daily Jolanta K Sgambellone, SUSTAINABILITY COORDINATOR-ENVIRONMENTAL EMERGENCIES PLANNER collagenase (SANTYL) ointment 1 Application 1 Application Topical Daily Power Nelson MD 1 Application at 03/19/23 1215 Docusate (COLACE) capsule 100 mg 100 mg Oral Q12H Nestor Alonzo MD 100 mg at 03/20/23 0806 Enoxaparin Sodium (LOVENOX) injection 40 mg 40 mg Subcutaneous QHS Isabel Tang CNP 40 mg at 03/19/232001 Fluticasone-Salmeterol (ADVAIR HFA) 115-21 MCG/ACT inhaler 2 puff 2 puff Inhalation BID Isabel Tang CNP 2 puff at 03/20/23 0837 furOSEmide (LASIX) injection 40 mg 40 mg Intravenous Q24H Isabel Tang CNP 40 mg at 03/19/23 1418 Gabapentin (NEURONTIN) capsule 400 mg 400 mg Oral 4x daily Isabel Tang CNP 400 mg at 03/20/23 0806 hydrOXYzine HCl (ATARAX) tablet 25 mg 25 mg Oral TID PRN Isabel Tang CNP 25 mg at 03/19/23 214 Ipratropium-albuterol (DUONEB) 0.5-2.5 (3) MG/3ML nebulizer solution 3 mL 3 mL Nebulization Q4H PRN Isabel Tang CNP Ketorolac (TORADOL) injection 15 mg 15 mg Intravenous Q6H PRN Isabel Tang CNP Labetalol (NORMODYNE) injection 20 mg 20 mg Intravenous Q6H PRN Isabel Tang CNP Magnesium sulfate 2 g/50 ml in sterile water premix IVPB 2 g 50 mL (total volume) 2 g Intravenous Daily Isabel Tang CNP 2 g at 03/19/23 0959 Melatonin tablet 6 mg 6 mg Oral QHS PRN Isabel Tang CNP 6 mg at 03/19/23 0035 Ondansetron 4mg/2ml (ZOFRAN) injection 4 mg 4 mg Intravenous Q4H PRN Nestor Alonzo MD Pantoprazole (PROTONIX) tablet DR 40 mg 40 mg Oral Daily Isabel Tang CNP 40 mg at 03/20/23 0806 Potassium chloride (K-DUR) tablet ER 40 mEq 40 mEq Oral Daily Isabel Tang CNP Or potassium chloride 40 mEq in 0.9% sodium chloride 500 ml IVPB 40 mEq Intravenous Daily Isabel Tang CNP traMADol (ULTRAM) tablet 100 mg 100 mg Oral Q4H PRN Isabel Tang CNP 100 mg at 03/19/23 0810 triamcinolone (KENALOG) 0.1 % cream 1 Application 1 Application Topical BID Power Nelson MD 1 Application at 03/19/23 1215 [facility]: CBC Lab Results Component Value Date/Time WBC 2.1 (L) 03/20/2023 05:33 AM WBC 2.6 (L) 03/19/2023 05:19 AM WBC 2.5 (L) 03/18/2023 04:47 AM HGB 9.8 (L) 03/20/2023 05:33 AM HGB 9.3 (L) 03/19/2023 05:19 AM HGB 9.9 (L) 03/18/2023 04:47 AM HCT 30.0 (L) 03/20/2023 05:33 AM HCT 28.9 (L) 03/19/2023 05:19 AM HCT 30.5 (L) 03/18/2023 04:47 AM PLATELET 94 (L) 03/20/2023 05:33 AM PLATELET 87 (L) 03/19/2023 05:19 AM PLATELET 81 (L) 03/18/2023 04:47 AM Chemistry Lab Results Component Value Date/Time GLUCOSE 120 (H) 03/20/2023 05:33 AM GLUCOSE 103 (H) 03/19/2023 05:19 AM GLUCOSE 97 03/18/2023 04:47 AM GLUCOSE 111 (H) 11/13/2021 01:10 PM BUN 26 (H) 03/20/2023 05:33 AM BUN 25 (H) 03/19/2023 05:19 AM BUN 22 (H) 03/18/2023 04:47 AM CREATSERUM 0.70 03/20/2023 05:33 AM CREATSERUM 0.70 03/19/2023 05:19 AM CREATSERUM 0.70 03/18/2023 04:47 AM SODIUM 134 (L) 03/20/2023 05:33 AM SODIUM 135 (L) 03/19/2023 05:19 AM SODIUM 134 (L) 03/18/2023 04:47 AM POTASSIUM 4.3 03/20/2023 05:33 AM POTASSIUM 4.1 03/19/2023 05:19 AM POTASSIUM 4.0 03/18/2023 04:47 AM CHLORIDE 98 03/20/2023 05:33 AM CHLORIDE 99 03/19/2023 05:19 AM CHLORIDE 97 (L) 03/18/2023 04:47 AM CO2 33 (H) 03/20/2023 05:33 AM CO2 33 (H) 03/19/2023 05:19 AM CO2 31 (H) 03/18/2023 04:47 AM ALBUMIN 2.9 (L) 03/20/2023 05:33 AM ALBUMIN 2.8 (L) 03/19/2023 05:19 AM ALBUMIN 2.9 (L) 03/18/2023 04:47 AM CALCIUM 7.3 (L) 03/20/2023 05:33 AM CALCIUM 7.4 (L) 03/19/2023 05:19 AM CALCIUM 7.4 (L) 03/18/2023 04:47 AM PHOSPHORUS 3.2 03/20/2023 05:33 AM PHOSPHORUS 3.3 03/19/2023 05:19 AM PHOSPHORUS 4.0 03/18/2023 04:47 AM MAGNESIUM 2.0 03/20/2023 05:33 AM MAGNESIUM 1.9 03/19/2023 05:19 AM MAGNESIUM 1.8 03/18/2023 04:47 AM COAG Lab Results Component Value Date/Time PT 16.0 (H) 03/17/2023 02:57 PM PT 15.8 (H) 02/26/2023 09:32 PM PT 15.0 (H) 02/04/2023 02:50 PM INR 1.27 (H) 03/17/2023 02:57 PM INR 1.25 (H) 02/26/2023 09:32 PM INR 1.17 (H) 02/04/2023 02:50 PM PTT 32.5 03/07/2022 12:25 AM PTT 31.9 11/12/2021 07:15 PM Patient Lines/Drains/Airways Status Active Lines, Drains, Airways, & Wound Overview Name Placement date Placement time Site Days Peripheral IV Line - Single Lumen -- -- -- -- Wound Traumatic 02/26/232125 skin tear Anterior;Left;Lower Leg 02/26/232125 Leg 21 Wound Edema Associated Anterior;Lower;Right Leg -- -- Leg -- Wound Pressure Injury 07/26/23 2300 Right;Plantar Foot 03/16/23 2300 Foot 3 ASSESSMENT & PLAN: Bilateral cellulitis of lower leg- chronic hx of mrsa -follows with ID - wound and blood cultures no growth to date - Dr Hayden following- unasyn Drug abuse- drug screen + cocaine/benzo/buprren Anemia , unspecified - stable Benign hypertension Asthma- duoneb as needed Idiopathic thrombocytopenic purpura (ITP)- stable plt - no bleeding Leukopenia- stable Cirrhosis alcoholic Hx lymphedema- lasix Chronic hepatitis C without hepatic coma Deconditioning- PT/OT - plan dc to snf dvt/gip ppi and lovenox Full Code I personally spent 6 minutes in the management of this patient, the details of my visit are listed in my documentation above. Associated attestation - Power Nelson MD - 03/20/2023 9:12 PM EDT I have independently interviewed and examined the patient. I have discussed armijo elements of the care plan with the [employer] RECEIVING and I agree with the findings and care plan as stated above. Time spent performing exam and reviewing diagnostics results, images and labs and discussing care plan with nurse practitioner and consulting physicians was 36 minutes D/w dr hayden Aox3 Pain better ctrld w iv narcotics Cont wound care Iv atbx Pt/ot Heart rrr Lungs clear Abd soft bs+ No jaundice Ss for ecf in am See orders Images from the original note were not included. Infectious Disease SUBJECTIVE History of Present Illness: Cramen Gilman 57 y.o. male with a history of multiple medical problems including a history of hepatitis-C status post recent completion of therapy, alcohol and drug use, cirrhosis with varices as well as lower extremity lymphedema and wounds. Patient had recent hospitalization and was discharged on 03/03 with a history of trauma to his left lower extremity with wound and complications of cellulitis. Patient was treated in the hospital with IV antibiotics and deescalated to Keflex on discharge. Additional history includes malnutrition, obesity, leg edema with recurrent infections, cocaine use, marijuana use, pancytopenia for which he is seen Hematology, asthma/COPD. No known allergies to antibiotics or other medications. Patient has a history of ongoing marijuana use, during recent admission was found to be positive for cocaine although he denies any current drug use or alcohol use. Patient has had a difficult social situation where he lives in a house with other people and states it is difficult to keep his legs dressed and clean. Who states lately he is had the live in his car the last 2 or 3 days. Patient states in the last 2 or 3 days his legs have worsened including bilateral lower extremity pain with new onset right lower extremity drainage and redness. Patient feels chills but no fevers reported by patient. He was previously seen in the hospital and given Keflex on discharge and then followed up in Infectious Disease Clinic on 03/11 and was changed to cefadroxil however the patient did not fruit picker the medication and had been off of antibiotics for 2-3 days prior to admission per his report. His main concern at initial consultation was lower extremity pain he denies any respiratory, abdominal or urinary or symptoms. Patient was seen in the emergency room on 03/16 and began on Unasyn. He was subsequently admitted for inpatient care and IV antibiotics. Infectious disease consult 03/17/2023, patient on Unasyn and clindamycin Interval events: 24 hour events reviewed Afebrile. Feeling better and eating breakfast. No n/v/d. Leg pain ongoing, but improving. Daily dressing changes ongoing. Wound cx pending. On Unasyn iv and midline pending. SNF placement pending. No other focal complaints. ROS A complete review of systems are negative except those consistent with HPI OBJECTIVE Past Medical History: Diagnosis Date Asthma Essential hypertension, benign MRSA (methicillin resistant staph aureus) culture positive rt. lower posteria leg Past Medical History: Diagnosis Date Asthma Essential hypertension, benign MRSA (methicillin resistant staph aureus) culture positive rt. lower posteria leg Past Surgical History: Procedure Laterality Date APPENDECTOMY BACK SURGERY FOOT SURGERY Patient Active Problem List Diagnosis Obesity: body mass index of 35.0-39.9 Hypotension Drug abuse Swelling of bilateral lower extremities Elevated d-dimer Anemia , unspecified Class 2 obesity due to excess calories without serious comorbidity in adult Hyponatremia Acute renal failure Generalized weakness Benign hypertension Asthma Idiopathic thrombocytopenic purpura (ITP) Hyperbilirubinemia Elevated INR Pancytopenia Leukopenia Lymphopenia Microcytic hypochromic anemia Elevated BUN CRP elevated Rheumatoid factor positive 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 Proteinuria Severe protein-calorie malnutrition Chronic hepatitis B without hepatic coma Chronic hepatitis C without hepatic coma Hepatosplenomegaly Bilateral cellulitis of lower leg Cellulitis Cellulitis and abscess of foot Social History Socioeconomic History Marital status: Spouse name: Not on file Number of children: Not on file Years of education: Not on file Highest education level: Not on file Occupational History Employer: UNEMPLOYED Tobacco Use Smoking status: Former Types: Cigarettes Quit date: 2007 Years since quittin.5 Smokeless tobacco: Current Types: Chew Vaping Use Vaping Use: Never used Substance and Sexual Activity Alcohol use: Not Currently Drug use: Not Currently Types: Marijuana Comment: Former Sexual activity: Yes Partners: Female Other Topics Concern Service Not Asked Blood Transfusions Not Asked Caffeine Concern Not Asked Occupational Exposure Not Asked Hobby Hazards Not Asked Sleep Concern Not Asked Stress Concern Not Asked Weight Concern Not Asked Special Diet Not Asked Back Care Not Asked Exercise Not Asked Bike Helmet Not Asked Seat Belt Not Asked Domestic Violence No Social History Narrative Not on file Social Determinants of Health Financial Resource Strain: Not on file Food Insecurity: Not on file Transportation Needs: Not on file Physical Activity: Not on file Stress: Not on file Social Connections: Not on file Intimate Partner Violence: Not on file Housing Stability: Not on file Current Facility-Administered Medications: Acetaminophen (TYLENOL) tablet 650 mg, 650 mg, Oral, Q4H PRN, Nestor Alonzo MD Ampicillin-Sulbactam Sodium (UNASYN) 3 g in sodium chloride 0.9% (MB PLUS) 100 mL (total volume) IVPB, 3 g, Intravenous, Q6H, Nestor Alonzo MD, Last Rate: 200 mL/hr at 03/20/23 1111, 3 g at 03/20/23 1111 bisacodyl (DULCOLAX) suppository 10 mg, 10 mg, Rectal, Daily PRN, Nestor Alonzo MD Buprenorphine (SUBUTEX) sublingual tablet 8 mg, 8 mg, Sublingual, Daily, Jolanta K Sgambellone, SUSTAINABILITY COORDINATOR-ENVIRONMENTAL EMERGENCIES PLANNER, 8 mg at 03/20/23 1007 collagenase (SANTYL) ointment 1 Application, 1 Application, Topical, Daily, Power Nelson MD, 1 Application at 03/20/23 1110 Docusate (COLACE) capsule 100 mg, 100 mg, Oral, Q12H, Nestor Alonzo MD, 100 mg at 03/20/23 0806 Enoxaparin Sodium (LOVENOX) injection 40 mg, 40 mg, Subcutaneous, QHS, Isabel Tang CNP, 40 mg at 03/19/232001 Fluticasone-Salmeterol (ADVAIR HFA) 115-21 MCG/ACT inhaler 2 puff, 2 puff, Inhalation, BID, Isabel Tang CNP, 2 puff at 03/20/23 0837 furOSEmide (LASIX) tablet 40 mg, 40 mg, Oral, Daily, Jolanta Payan Sgambellone, SUSTAINABILITY COORDINATOR-ENVIRONMENTAL EMERGENCIES PLANNER, 40 mg at 03/20/23 1110 Gabapentin (NEURONTIN) capsule 400 mg, 400 mg, Oral, 4x daily, Isabel Tang CNP, 400 mg at 03/20/23 1222 hydrOXYzine HCl (ATARAX) tablet 25 mg, 25 mg, Oral, TID PRN, Isabel Tang CNP, 25 mg at 03/19/23 214 Ipratropium-albuterol (DUONEB) 0.5-2.5 (3) MG/3ML nebulizer solution 3 mL, 3 mL, Nebulization, Q4H PRN, Isabel Tang CNP Ketorolac (TORADOL) injection 15 mg, 15 mg, Intravenous, Q6H PRN, Isabel Tang CNP Labetalol (NORMODYNE) injection 20 mg, 20 mg, Intravenous, Q6H PRN, Isabel Tang CNP Magnesium sulfate 2 g/50 ml in sterile water premix IVPB 2 g 50 mL (total volume), 2 g, Intravenous, Daily, Isabel Tang CNP, 2 g at 03/19/23 0959 Melatonin tablet 6 mg, 6 mg, Oral, QHS PRN, Isabel Tang CNP, 6 mg at 03/19/23 0035 Ondansetron 4mg/2ml (ZOFRAN) injection 4 mg, 4 mg, Intravenous, Q4H PRN, Nestor Alonzo MD Pantoprazole (PROTONIX) tablet DR 40 mg, 40 mg, Oral, Daily, Isabel Tang CNP, 40 mg at 03/20/23 08 Potassium chloride (K-DUR) tablet ER 40 mEq, 40 mEq, Oral, Daily OR potassium chloride 40 mEq in 0.9% sodium chloride 500 ml IVPB, 40 mEq, Intravenous, Daily, Isabel Tang CNP traMADol (ULTRAM) tablet 100 mg, 100 mg, Oral, Q4H PRN, Isabel Tang CNP, 100 mg at 03/20/23 1424 triamcinolone (KENALOG) 0.1 % cream 1 Application, 1 Application, Topical, BID, Power Nelson MD, 1 Application at 03/20/23 1111 No Known Allergies Vitals: 03/20/23 0008 03/20/23 0513 03/20/23 0749 03/20/23 0847 BP: 118/76 106/72 112/72 Pulse: 80 79 74 Resp: 16 16 18 Temp: 97.5 degrees F (36.4 degrees C) 97.9 degrees F (36.6 degrees C) 97.3 degrees F (36.3 degrees C) TempSrc: Oral Oral Oral SpO2: 99% 96% 92% 95% Height: Intake/Output Summary (Last 24 hours) at 03/20/2023 1435 Last data filed at 03/20/2023 0851 Gross per 24 hour Intake 1360 ml Output 2550 ml Net -1190 ml Physical Exam: CONSTITUTIONAL: Alert and Oriented, in appearance with some noted wasting features, afebrile HEENT: Normocephalic and atraumatic, Sclera anicteric, PERRL, poor dentition CARDIAC: Normal rate, regular rhythm, normal heart sounds and intact distal pulses, no murmurs/rubs/clicks/gallops RESP: Effort normal. Few scattered rales, overall clear anteriorly, RA GI: Soft. Bowel sounds are normal. Nontender. Nondistended. Obese : No Suprapubic tenderness EXTREMITES: No cyanosis, clubbing; bilateral lower extremity lymphedema. Has a wound on his left tibia area with blood underneath skin Right lower extremity plantar surface and medial area with a lesion that has been chronically present. Right lower extremity has cellulitis and an impetigo like rash - less inflamed DERM: Skin is warm and dry. MUSCULARSKELETAL: No septic arthritis noted NEUROLOGIC: Fatigued in appearance but answers questions appropriately LINES: All line sites are clear and without evidence of infection LAB RESULTS: WBC (WHITE BLOOD COUNT) Date/Time Value Ref Range Status 03/20/2023 05:33 AM 2.1 (L) 3.6 - 11.0 10*3/uL Final 03/19/2023 05:19 AM 2.6 (L) 3.6 - 11.0 10*3/uL Final 03/18/2023 04:47 AM 2.5 (L) 3.6 - 11.0 10*3/uL Final 03/17/2023 05:26 AM 2.2 (L) 3.6 - 11.0 10*3/uL Final 03/16/2023 05:53 PM 3.6 3.6 - 11.0 10*3/uL Final 03/03/2023 05:38 AM 2.8 (L) 3.6 - 11.0 10*3/uL Final 03/02/2023 05:57 AM 2.0 (L) 3.6 - 11.0 10*3/uL Final HEMOGLOBIN (HGB) Date/Time Value Ref Range Status 03/20/2023 05:33 AM 9.8 (L) 14.0 - 18.0 G/DL Final 03/19/2023 05:19 AM 9.3 (L) 14.0 - 18.0 G/DL Final 03/18/2023 04:47 AM 9.9 (L) 14.0 - 18.0 G/DL Final 03/17/2023 05:26 AM 10.0 (L) 14.0 - 18.0 G/DL Final 03/16/2023 05:53 PM 10.5 (L) 14.0 - 18.0 G/DL Final 03/03/2023 05:38 AM 9.3 (L) 14.0 - 18.0 G/DL Final 03/02/2023 05:57 AM 8.7 (L) 14.0 - 18.0 G/DL Final HEMATOCRIT (HCT) Date/Time Value Ref Range Status 03/20/2023 05:33 AM 30.0 (L) 42.0 - 52.0 % Final 03/19/2023 05:19 AM 28.9 (L) 42.0 - 52.0 % Final 03/18/2023 04:47 AM 30.5 (L) 42.0 - 52.0 % Final 03/17/2023 05:26 AM 31.4 (L) 42.0 - 52.0 % Final 03/16/2023 05:53 PM 33.6 (L) 42.0 - 52.0 % Final 03/03/2023 05:38 AM 29.1 (L) 42.0 - 52.0 % Final 03/02/2023 05:57 AM 27.6 (L) 42.0 - 52.0 % Final PLATELET COUNT Date/Time Value Ref Range Status 03/20/2023 05:33 AM 94 (L) 130 - 400 10*3/uL Final 03/19/2023 05:19 AM 87 (L) 130 - 400 10*3/uL Final 03/18/2023 04:47 AM 81 (L) 130 - 400 10*3/uL Final 03/17/2023 05:26 AM 91 (L) 130 - 400 10*3/uL Final 03/16/2023 05:53 PM 106 (L) 130 - 400 10*3/uL Final 03/03/2023 05:38 AM 96 (L) 130 - 400 10*3/uL Final 03/02/2023 05:57 AM 93 (L) 130 - 400 10*3/uL Final POTASSIUM Date/Time Value Ref Range Status 03/20/2023 05:33 AM 4.3 3.5 - 5.1 MMOL/L Final 03/19/2023 05:19 AM 4.1 3.5 - 5.1 MMOL/L Final 03/18/2023 04:47 AM 4.0 3.5 - 5.1 MMOL/L Final 03/17/2023 05:26 AM 3.6 3.5 - 5.1 MMOL/L Final 03/16/2023 05:53 PM 3.5 3.5 - 5.1 MMOL/L Final 03/03/2023 05:38 AM 4.3 3.5 - 5.1 MMOL/L Final 03/02/2023 05:57 AM 4.1 3.5 - 5.1 MMOL/L Final CHLORIDE Date/Time Value Ref Range Status 03/20/2023 05:33 AM 98 98 - 107 MMOL/L Final Comment: Please note: Triglyceride levels of 600mg/dL or higher may positively bias chloride results by approximately 2.1 mmol 03/19/2023 05:19 AM 99 98 - 107 MMOL/L Final Comment: Please note: Triglyceride levels of 600mg/dL or higher may positively bias chloride results by approximately 2.1 mmol 03/18/2023 04:47 AM 97 (L) 98 - 107 MMOL/L Final Comment: Please note: Triglyceride levels of 600mg/dL or higher may positively bias chloride results by approximately 2.1 mmol 03/17/2023 05:26 AM 96 (L) 98 - 107 MMOL/L Final Comment: Please note: Triglyceride levels of 600mg/dL or higher may positively bias chloride results by approximately 2.1 mmol 03/16/2023 05:53 PM 96 (L) 98 - 107 MMOL/L Final Comment: Please note: Triglyceride levels of 600mg/dL or higher may positively bias chloride results by approximately 2.1 mmol 03/03/2023 05:38 AM 113 (H) 98 - 107 MMOL/L Final Comment: Please note: Triglyceride levels of 600mg/dL or higher may positively bias chloride results by approximately 2.1 mmol 03/02/2023 05:57 AM 114 (H) 98 - 107 MMOL/L Final Comment: Please note: Triglyceride levels of 600mg/dL or higher may positively bias chloride results by approximately 2.1 mmol CARBON DIOXIDE (CO2) Date/Time Value Ref Range Status 03/20/2023 05:33 AM 33 (H) 22 - 30 MMOL/L Final 03/19/2023 05:19 AM 33 (H) 22 - 30 MMOL/L Final 03/18/2023 04:47 AM 31 (H) 22 - 30 MMOL/L Final 03/17/2023 05:26 AM 32 (H) 22 - 30 MMOL/L Final 03/16/2023 05:53 PM 33 (H) 22 - 30 MMOL/L Final 03/03/2023 05:38 AM 25 22 - 30 MMOL/L Final 03/02/2023 05:57 AM 27 22 - 30 MMOL/L Final GLUCOSE, POINT OF CARE Date/Time Value Ref Range Status 11/13/2021 01:10 PM 111 (H) 70 - 100 MG/DL Final Glucose Date/Time Value Ref Range Status 03/20/2023 05:33 AM 120 (H) 70 - 100 MG/DL Final Comment: NORMAL <100 mg/dL PREDIABETES 101-126 mg/dL DIABETES 126 mg/dL or higher 03/19/2023 05:19 AM 103 (H) 70 - 100 MG/DL Final Comment: NORMAL <100 mg/dL PREDIABETES 101-126 mg/dL DIABETES 126 mg/dL or higher 03/18/2023 04:47 AM 97 70 - 100 MG/DL Final Comment: NORMAL <100 mg/dL PREDIABETES 101-126 mg/dL DIABETES 126 mg/dL or higher 03/17/2023 05:26 AM 90 70 - 100 MG/DL Final Comment: NORMAL <100 mg/dL PREDIABETES 101-126 mg/dL DIABETES 126 mg/dL or higher 03/16/2023 05:53 PM 116 (H) 70 - 100 MG/DL Final Comment: NORMAL <100 mg/dL PREDIABETES 101-126 mg/dL DIABETES 126 mg/dL or higher 03/03/2023 05:38 AM 93 70 - 100 MG/DL Final Comment: NORMAL <100 mg/dL PREDIABETES 101-126 mg/dL DIABETES 126 mg/dL or higher 03/02/2023 05:57 AM 87 70 - 100 MG/DL Final Comment: NORMAL <100 mg/dL PREDIABETES 101-126 mg/dL DIABETES 126 mg/dL or higher BUN Date/Time Value Ref Range Status 03/20/2023 05:33 AM 26 (H) 7 - 20 MG/DL Final 03/19/2023 05:19 AM 25 (H) 7 - 20 MG/DL Final 03/18/2023 04:47 AM 22 (H) 7 - 20 MG/DL Final 03/17/2023 05:26 AM 16 7 - 20 MG/DL Final 03/16/2023 05:53 PM 15 7 - 20 MG/DL Final 03/03/2023 05:38 AM 16 7 - 20 MG/DL Final 03/02/2023 05:57 AM 13 7 - 20 MG/DL Final CREATININE SERUM Date/Time Value Ref Range Status 03/20/2023 05:33 AM 0.70 0.7 - 1.2 MG/DL Final 03/19/2023 05:19 AM 0.70 0.7 - 1.2 MG/DL Final 03/18/2023 04:47 AM 0.70 0.7 - 1.2 MG/DL Final 03/17/2023 05:26 AM 0.50 (L) 0.7 - 1.2 MG/DL Final 03/16/2023 05:53 PM 0.59 (L) 0.70 - 1.20 MG/DL Final 03/03/2023 05:38 AM 0.50 (L) 0.7 - 1.2 MG/DL Final 03/02/2023 05:57 AM 0.50 (L) 0.7 - 1.2 MG/DL Final Albumin Date/Time Value Ref Range Status 03/20/2023 05:33 AM 2.9 (L) 3.5 - 5.0 G/dl Final 03/19/2023 05:19 AM 2.8 (L) 3.5 - 5.0 G/dl Final 03/18/2023 04:47 AM 2.9 (L) 3.5 - 5.0 G/dl Final 03/17/2023 05:26 AM 3.0 (L) 3.5 - 5.0 G/dl Final 03/16/2023 05:53 PM 3.6 3.5 - 5.0 G/dl Final 03/03/2023 05:38 AM 2.9 (L) 3.5 - 5.0 G/dl Final 03/02/2023 05:57 AM 2.6 (L) 3.5 - 5.0 G/dl Final CALCIUM Date/Time Value Ref Range Status 03/20/2023 05:33 AM 7.3 (L) 8.4 - 10.2 MG/DL Final 03/19/2023 05:19 AM 7.4 (L) 8.4 - 10.2 MG/DL Final 03/18/2023 04:47 AM 7.4 (L) 8.4 - 10.2 MG/DL Final 03/17/2023 05:26 AM 7.9 (L) 8.4 - 10.2 MG/DL Final 03/16/2023 05:53 PM 8.3 (L) 8.4 - 10.2 MG/DL Final 03/03/2023 05:38 AM 8.0 (L) 8.4 - 10.2 MG/DL Final 03/02/2023 05:57 AM 7.9 (L) 8.4 - 10.2 MG/DL Final ALKALINE PHOSPHATASE Date/Time Value Ref Range Status 03/16/2023 05:53 PM 53 38 - 126 IU/L Final 02/26/2023 09:32 PM 54 38 - 126 IU/L Final 02/04/2023 02:50 PM 67 38 - 126 IU/L Final 11/29/2022 01:39 PM 64 38 - 126 IU/L Final 10/27/2022 10:32 AM 66 38 - 126 IU/L Final 09/13/2022 11:05 AM 60 38 - 126 IU/L Final 03/07/2022 12:25 AM 45 38 - 126 IU/L Final AST Date/Time Value Ref Range Status 03/16/2023 05:53 PM 38 17 - 59 IU/L Final 02/26/2023 09:32 PM 26 17 - 59 IU/L Final 02/04/2023 02:50 PM 21 15 - 41 IU/L Final 11/29/2022 01:39 PM 25 15 - 41 IU/L Final 10/27/2022 10:32 AM 22 15 - 41 IU/L Final 09/13/2022 11:05 AM 25 15 - 41 IU/L Final 03/07/2022 12:25 AM 34 15 - 41 IU/L Final BILIRUBIN, TOTAL Date/Time Value Ref Range Status 03/16/2023 05:53 PM 1.6 (H) 0.2 - 1.3 MG/DL Final 02/28/2023 04:47 AM 0.7 Final Comment: Reference range: 0.0 to 1.2 Unit: mg/dL 02/26/2023 09:32 PM 1.1 0.2 - 1.3 MG/DL Final 02/04/2023 02:50 PM 1.1 0.2 - 1.2 MG/DL Final 11/29/2022 01:39 PM 0.9 0.2 - 1.2 MG/DL Final 10/27/2022 10:32 AM 1.5 (H) 0.2 - 1.2 MG/DL Final 09/13/2022 11:05 AM 1.3 (H) 0.2 - 1.2 MG/DL Final ALT Date/Time Value Ref Range Status 03/16/2023 05:53 PM 21 <50 IU/L Final 02/26/2023 09:32 PM 17 <50 IU/L Final 02/04/2023 02:50 PM 14 (L) 17 - 63 IU/L Final 11/29/2022 01:39 PM 14 (L) 17 - 63 IU/L Final 10/27/2022 10:32 AM 12 (L) 17 - 63 IU/L Final 09/13/2022 11:05 AM 13 (L) 17 - 63 IU/L Final 03/07/2022 12:25 AM 20 17 - 63 IU/L Final ESTIMATED GFR, NON AMER Date/Time Value Ref Range Status 03/20/2023 05:33 AM 124 ml/min/1.73sq.m Final 03/19/2023 05:19 AM 124 ml/min/1.73sq.m Final 03/18/2023 04:47 AM 124 ml/min/1.73sq.m Final 03/17/2023 05:26 AM 183 ml/min/1.73sq.m Final 03/16/2023 05:53 PM 151 ml/min/1.73sq.m Final 03/03/2023 05:38 AM 183 ml/min/1.73sq.m Final 03/02/2023 05:57 AM 183 ml/min/1.73sq.m Final ESTIMATED GFR, Date/Time Value Ref Range Status 03/20/2023 05:33 AM 150 ml/min/1.73sq.m Final 03/19/2023 05:19 AM 150 ml/min/1.73sq.m Final 03/18/2023 04:47 AM 150 ml/min/1.73sq.m Final 03/17/2023 05:26 AM 221 ml/min/1.73sq.m Final 03/16/2023 05:53 PM 183 ml/min/1.73sq.m Final 03/03/2023 05:38 AM 221 ml/min/1.73sq.m Final 03/02/2023 05:57 AM 221 ml/min/1.73sq.m Final GFR COMMENT Date/Time Value Ref Range Status 03/20/2023 05:33 AM Average GFR for 50-59 years old = 93. Final Comment: Chronic Kidney disease, GFR = <60. Kidney failure, GFR = <15. The GFR estimate is not adjusted for extreme body surface area or acute process, nor has it been validated for women or ethnic groups other than and . Testing performed at [facility], [place], [place] [address] CBC Lab Results Component Value Date WBC 2.1 (L) 03/20/2023 HGB 9.8 (L) 03/20/2023 HCT 30.0 (L) 03/20/2023 PLATELET 94 (L) 03/20/2023 MCV 71.0 (L) 03/20/2023 EDIF Lab Results Component Value Date RBCDISTRIBU 15.9 (H) 03/20/2023 EOSINOPHILS 5 03/20/2023 BASOPHILS 1 03/19/2023 BASOPHILS 0.0 03/19/2023 LYMPHOCYTABS 0.8 (L) 03/19/2023 PLATELET 94 (L) 03/20/2023 MPV 8.5 03/20/2023 Lab Results Component Value Date SODIUM 134 (L) 03/20/2023 POTASSIUM 4.3 03/20/2023 CHLORIDE 98 03/20/2023 CO2 33 (H) 03/20/2023 BUN 26 (H) 03/20/2023 CREATSERUM 0.70 03/20/2023 GLUCOSE 120 (H) 03/20/2023 Micro Blood culture 03/17 no growth Wound RLE 03/17: NOF Nares 03/16-, history of previous MSSA Left lower extremity wounds 03/11 with Enterococcus sensitive to ampicillin Enterococcus Faecalis Group D Ampicillin <=2 SUSCEPT... SS Gentamicin High Level RESISTANT R PENICILLIN G 2 SUSCEPTIBLE SS Streptomycin High Level SUSCEPTIBLE S Vancomycin 1 SUSCEPTIBLE SS Susceptibility Comments Enterococcus Faecalis Group D ENTEROCOCCUS FAECALIS GROUP D Specimen Collected: 03/11/23 12:23 Last Resulted: 03/14/23 11:24 Lab Flowsheet Order Details View Encounter Lab and Collection Details Routing Result History View All Conversations on this Encounter Result Care Coordination Patient Communication Add Comments Not seen Back to Top Result Report CULTURE WOUND (Order #[id number]) on 03/11/23 View [email or web address] Info CULTURE WOUND (Order #[id number]) on 03/11/23 CULTURE WOUND: Patient Communication Add Comments Not seen Collection Information Specimen ID: [id number] Swab LEG Collected: 03/11/2023 12:23 PM 200 Received: 03/11/2023 12:23 PM Resulting Agency: [facility] - [address] [facility] [place] [facility] [place] [address] [facility] [id number] Wound culture 02/27 with MSSA Staphylococcus aureus Clindamycin <=0.25 SUSC... SS Erythromycin >=8 RESISTANT R Gentamicin <=0.5 SUSCE... SS Inducible Clindamycin Resistance NEGATIVE S Levofloxacin 0.25 SUSCEP... SS Linezolid 2 SUSCEPTIBLE SS Oxacillin 0.5 SUSCEPT... SS PENICILLIN G >=0.5 RESIS... R Rifampin <=0.5 SUSCE... SS Tetracycline <=1 SUSCEPT... SS Trimethoprim/Sulfamethoxazol <=10 SUSCEP... SS Vancomycin <=0.5 SUSCE... SS No orders to display ASSESSMENT AND PLAN . Carmen Gilman 57 y.o. admitted for lower extremity wounds and worsening infections in the setting of a history of pancytopenia, end-stage liver disease and history of drug and alcohol use Left lower extremity laceration/wound infection -Traumatic injury on 02/25 -nares shows MSSA during early February admission, but follow up testing negative -Blood cultures 02/26 and 02/27 no growth -Wound culture 02/27 MSSA; MSSA is likely the main pathogen, also with a bacillus species on file which is likely more of a colonizer of the skin. -culture also showed Enterococcus on 03/19 but this is more likely a colonizer -ultrasound negative for DVT but does show some reactive inguinal lymph nodes -s/p cefepime and Vancomycin ended 03/03 and transitioned to oral Keflex 500 mg 4 times a day for 8 days, 03/03-03/11, then to cefadroxil, but he never picked up the medication -local wound care -no clear indications for surgical consult at this time Right lower extremity soft tissue infection -appearance is consistent with an impetigo like infection -check culture but most likely Staphylococcus or Streptococcus given appearance the patient is at risk for other organisms given his living situation and comorbidities; ordered 03/17 but no current results -Unasyn 03/16-current -clindamycin 03/17-03/19 and then discontinued -no evidence of sepsis with normal CRP and lactate levels -blood culture 03/18 NGTD -local dressings, wound care with elevation and fluid management -check culture if any drainage -continue Unasyn , midline, SNF placement -Weekly cbc, cmp and crp Hepatitis C - INR 1.16 mildly elevated, fibrosure 0.78 consistent with cirrhosis at initial eval, alpha-fetoprotein which was normal -NS5A genotype 3 resistance testing: negative -Hx of decompensated cirrhosis given varices noted. -S/p daily fixed dosing of sofosbuvir 400mg/velpatasvir 100mg (epclusa) x 24 weeks, 08/23/22-current x 24 weeks; completed treatment in early February -Plan SVR in 3 months after treatment ended Cirrhosis/esophageal varices -Patient has seen GI specialist -Testing including ISSAC, Anca, teddy, antimitochondrial antibody, EBV, CMV, ceruloplasmin were normal -EGD with varices, managed by GI -bilirubin increased to 1.6, f/up in am Positive hepatitis B core antibody -Patient is surface antibody positive but surface antigen negative -Obtained hepatitis B DNA level 06/09 which was negative Drug use -Recommend ongoing cessation, recent positive cocaine test during admission in February -patient endorses using marijuana -recommend cessation of drug use and this was discussed -drug screen positive for cocaine metabolite, benzodiazepines and buprenorphine -Recommend drug cessation / program Health care maintenance -Patient is immune against hepatitis A and hepatitis B based on serologies -Recommend influenza, coronavirus, shingles, pneumococcal vaccinations but the patient has deferred previously History of alcohol abuse -Currently off of alcohol Pancytopenia -ongoing history of pancytopenia, likely due to underlying liver disease -patient seeing student services vice president Dr Dahl -Positive testing for positive platelet antibodies IIB/IIIA, possible ITP -Possible thalassemia, electrophoresis was not performed though according to lab review -reticulocyte percentage 2.2, iron, ferritin, B12 and folate normal in past -patient seeing student services vice president Dr Dahl -Positive testing for positive platelet antibodies IIB/IIIA, possible ITPl Soluble transferrin elevated 27 -White count 2.2, 2.5, 2.6, 2.1 -Hemoglobin 10, 9.9, 9.3, 9.8 -Platelets of 91, 81, 87, 94 -Stably low Obesity -Patient with ongoing efforts to lose weight -BMI 31 Right lower extremity wound/feet& toe deformities -Patient saw podiatry Dr. Pelayo in [place] and then to [facility] with Dr. Bryan; plan shave procedure once legs further healed noted -no Podiatry consult needs at this time, would recommend follow up as outpatient Incarceration history -Patient concerned that he may have been exposed to tuberculosis and TB testing was negative Hx of MSSA colonization -Positive 02/27 -Repeat testing negative 03/16 Lymphedema -Chronic swelling noted -Elevation and diuretics -history of Unna boot use, none current -Ultrasound without DVT but did show reactive adenopathy Mildly elevating Cr -Cr 0.5, 0.7, 0.7,0.7 -Trends stable, adequate hydration COPD.RAD -inhalers Disposition -okay from ID perspective for discharge with midline and IV antibiotics with close infectious disease clinic follow up once the patient is stable from hospitalist standpoint for discharge -patient states he wishes to go to [facility] and Mary Hayden MD [facility] LOS: 3 days SUBJECTIVE: Patient resting in bed/chair, Denies fever, chills, chest pain or sob. Is eating and drinking well. C/o pain to legs PHYSICAL EXAMINATION: Blood pressure 107/67, pulse 65, temperature 97.7 F (36.5 C), temperature source Oral, resp. rate 18, height 1.829 m (6' 0.01"), weight 104.3 kg (230 lb), SpO2 97 %. Gen: Comfortable in bed, no signs of distress HEENT: Normocephalic, atraumatic, Moist oral mucous membranes Neck: supple, Lungs: Clear to auscultation BL, anterior and posterior, without rales, rhonchi or wheezing Heart: Regular in rate and rhythm. Without murmur, rub or gallop Abd: Soft and non-distended. Non tender BSPx 4 Skin: No obvious rashes or cyanosis. ble wounds less redness Neuro: Grossly non-focal examination. Intake and Output: Intake/Output Summary (Last 24 hours) at 03/19/2023 1321 Last data filed at 03/18/2023 2250 Gross per 24 hour Intake 500 ml Output 1250 ml Net -750 ml Daily Weight: Wt Readings from Last 3 Encounters: 03/16/23 99.8 kg (220 lb) 03/11/23 101.1 kg (222 lb 12.8 oz) 02/27/23 105.3 kg (232 lb 3.2 oz) CURRENT MEDICATIONS: Current Facility-Administered Medications Medication Dose Route Frequency Provider Last Rate Last Admin Acetaminophen (TYLENOL) tablet 650 mg 650 mg Oral Q4H PRN Nestor Alonzo MD Ampicillin-Sulbactam Sodium (UNASYN) 3 g in sodium chloride 0.9% (MB PLUS) 100 mL (total volume) IVPB 3 g Intravenous Q6H Nestor Alonzo MD 200 mL/hr at 03/19/23 1213 3 g at 03/19/23 1213 bisacodyl (DULCOLAX) suppository 10 mg 10 mg Rectal Daily PRN Nestor Alonzo MD clindamycin (CLEOCIN) 900 mg in normal saline 50 ml premix IVPB 900 mg Intravenous Q8H Nathan Hayden MD 100 mL/hr at 03/19/23 0644 900 mg at 03/19/23 0644 collagenase (SANTYL) ointment 1 Application 1 Application Topical Daily Power Nelson MD 1 Application at 03/19/23 1215 Docusate (COLACE) capsule 100 mg 100 mg Oral Q12H Nestor Alonzo MD 100 mg at 03/17/231999 Enoxaparin Sodium (LOVENOX) injection 40 mg 40 mg Subcutaneous QHS Isabel Tang CNP 40 mg at 03/18/23 2147 Fluticasone-Salmeterol (ADVAIR HFA) 115-21 MCG/ACT inhaler 2 puff 2 puff Inhalation BID Isabel Tang CNP 2 puff at 03/19/23 0809 furOSEmide (LASIX) injection 40 mg 40 mg Intravenous Q24H Isabel Tang CNP 40 mg at 03/18/23 1608 Gabapentin (NEURONTIN) capsule 400 mg 400 mg Oral 4x daily Isabel Tang CNP 400 mg at 03/19/23 1213 HYDROmorphone (DILAUDID) injection 0.5 mg 0.5 mg Intravenous Q2H PRN Power Nelson MD 0.5 mg at 03/19/23 1212 hydrOXYzine HCl (ATARAX) tablet 25 mg 25 mg Oral TID PRN Isabel Tang CNP 25 mg at 03/19/23 0439 Ipratropium-albuterol (DUONEB) 0.5-2.5 (3) MG/3ML nebulizer solution 3 mL 3 mL Nebulization Q4H PRN Isabel Tang CNP Ketorolac (TORADOL) injection 15 mg 15 mg Intravenous Q6H PRN Isabel Tang CNP Labetalol (NORMODYNE) injection 20 mg 20 mg Intravenous Q6H PRN Isabel Tang CNP Magnesium sulfate 2 g/50 ml in sterile water premix IVPB 2 g 50 mL (total volume) 2 g Intravenous Daily Isabel Tang CNP 2 g at 03/19/23 0959 Melatonin tablet 6 mg 6 mg Oral QHS PRN Isabel Tang CNP 6 mg at 03/19/23 0035 Ondansetron 4mg/2ml (ZOFRAN) injection 4 mg 4 mg Intravenous Q4H PRN Nestor Alonzo MD Pantoprazole (PROTONIX) tablet DR 40 mg 40 mg Oral Daily Isabel Tnag CNP 40 mg at 03/19/23 0811 Potassium chloride (K-DUR) tablet ER 40 mEq 40 mEq Oral Daily Isabel Tang CNP Or potassium chloride 40 mEq in 0.9% sodium chloride 500 ml IVPB 40 mEq Intravenous Daily Isabel Tang CNP traMADol (ULTRAM) tablet 100 mg 100 mg Oral Q4H PRN Isabel Tang CNP 100 mg at 03/19/23 0810 triamcinolone (KENALOG) 0.1 % cream 1 Application 1 Application Topical BID Power Nelson MD 1 Application at 03/19/23 1215 [facility]: CBC Lab Results Component Value Date/Time WBC 2.6 (L) 03/19/2023 05:19 AM WBC 2.5 (L) 03/18/2023 04:47 AM WBC 2.2 (L) 03/17/2023 05:26 AM HGB 9.3 (L) 03/19/2023 05:19 AM HGB 9.9 (L) 03/18/2023 04:47 AM HGB 10.0 (L) 03/17/2023 05:26 AM HCT 28.9 (L) 03/19/2023 05:19 AM HCT 30.5 (L) 03/18/2023 04:47 AM HCT 31.4 (L) 03/17/2023 05:26 AM PLATELET 87 (L) 03/19/2023 05:19 AM PLATELET 81 (L) 03/18/2023 04:47 AM PLATELET 91 (L) 03/17/2023 05:26 AM Chemistry Lab Results Component Value Date/Time GLUCOSE 103 (H) 03/19/2023 05:19 AM GLUCOSE 97 03/18/2023 04:47 AM GLUCOSE 90 03/17/2023 05:26 AM GLUCOSE 111 (H) 11/13/2021 01:10 PM BUN 25 (H) 03/19/2023 05:19 AM BUN 22 (H) 03/18/2023 04:47 AM BUN 16 03/17/2023 05:26 AM CREATSERUM 0.70 03/19/2023 05:19 AM CREATSERUM 0.70 03/18/2023 04:47 AM CREATSERUM 0.50 (L) 03/17/2023 05:26 AM SODIUM 135 (L) 03/19/2023 05:19 AM SODIUM 134 (L) 03/18/2023 04:47 AM SODIUM 133 (L) 03/17/2023 05:26 AM POTASSIUM 4.1 03/19/2023 05:19 AM POTASSIUM 4.0 03/18/2023 04:47 AM POTASSIUM 3.6 03/17/2023 05:26 AM CHLORIDE 99 03/19/2023 05:19 AM CHLORIDE 97 (L) 03/18/2023 04:47 AM CHLORIDE 96 (L) 03/17/2023 05:26 AM CO2 33 (H) 03/19/2023 05:19 AM CO2 31 (H) 03/18/2023 04:47 AM CO2 32 (H) 03/17/2023 05:26 AM ALBUMIN 2.8 (L) 03/19/2023 05:19 AM ALBUMIN 2.9 (L) 03/18/2023 04:47 AM ALBUMIN 3.0 (L) 03/17/2023 05:26 AM CALCIUM 7.4 (L) 03/19/2023 05:19 AM CALCIUM 7.4 (L) 03/18/2023 04:47 AM CALCIUM 7.9 (L) 03/17/2023 05:26 AM PHOSPHORUS 3.3 03/19/2023 05:19 AM PHOSPHORUS 4.0 03/18/2023 04:47 AM PHOSPHORUS 4.4 03/17/2023 05:26 AM MAGNESIUM 1.9 03/19/2023 05:19 AM MAGNESIUM 1.8 03/18/2023 04:47 AM MAGNESIUM 1.7 03/17/2023 05:26 AM COAG Lab Results Component Value Date/Time PT 16.0 (H) 03/17/2023 02:57 PM PT 15.8 (H) 02/26/2023 09:32 PM PT 15.0 (H) 02/04/2023 02:50 PM INR 1.27 (H) 03/17/2023 02:57 PM INR 1.25 (H) 02/26/2023 09:32 PM INR 1.17 (H) 02/04/2023 02:50 PM PTT 32.5 03/07/2022 12:25 AM PTT 31.9 11/12/2021 07:15 PM Patient Lines/Drains/Airways Status Active Lines, Drains, Airways, & Wound Overview Name Placement date Placement time Site Days Peripheral IV Line - Single Lumen -- -- -- -- Wound Traumatic 02/26/232125 skin tear Anterior;Left;Lower Leg 02/26/232125 Leg 20 Wound Edema Associated Anterior;Lower;Right Leg -- -- Leg -- Wound Pressure Injury 03/16/232299 Right;Plantar Foot 03/16/232299 Foot 2 ASSESSMENT & PLAN: Bilateral cellulitis of lower leg- chronic hx of mrsa -follows with ID - wound and blood cultures no growth to date - DR Hayden following- unasyn/;cleocin - Drug abuse- drug screen + cocaine/benzo/buprren Anemia , unspecified - stable Benign hypertension Asthma- duoneb as needed Idiopathic thrombocytopenic purpura (ITP)- stable plt - no bleeding Leukopenia- stable Cirrhosis alcoholic - Hx lymphedema- lasix Chronic hepatitis C without hepatic coma Deconditioning- PT/OT - plan dc to snf dvt/gip ppi and lovenox Full Code I personally spent 6 minutes in the management of this patient, the details of my visit are listed in my documentation above. This plan of care was initiated in collaboration with the attending physician. Please note Portions of this note utilized [employer] dictation software, please excuse any typographical or grammatical errors. Associated attestation - Power Nelson MD - 03/20/2023 8:47 PM EDT Pt seen and examined on march 19 2023 I have independently interviewed and examined the patient. I have discussed armijo elements of the care plan with the [employer] RECEIVING and I agree with the findings and care plan as stated above. Time spent performing exam and reviewing diagnostics results, images and labs and discussing care plan with nurse practitioner and consulting physicians was 36 minutes D/w dr ryan Cont iv atbx Pt complaints of pain Iv narcotics added Heart rrr Lungs clear Abd soft bs+ No jaundice Cont wound care See orders 03/19/23 1212 Time In/Out Time In 1035 Time Out 1050 Total Visit Time 15 minutes General Pain Documentation (Adult, OB, Peds) Presence of Pain complains of pain/discomfort Pain Location leg, right;leg, left Pain Management Interventions medication given, see MAR DVPRS (Defense and Veterans Pain Rating Scale) DVPRS: Rest 8- severe pain DVPRS: Activity 8- severe pain Patient was laying in bed when entering the room and patient was willing to participate in Physical Therapy today. Patient preformed BLE in supine of glut sets, quad sets, heel slides, hip abduction slides, SLR for 10 reps. Patient required min A with preforming his heel slide, hip abduction slides and SLR Patient presents with normal muscle fatigue following his treatment today and call light was placed within reach. Continue as per POC Infectious Disease SUBJECTIVE History of Present Illness: Carmen Gilman 57 y.o. male with a history of multiple medical problems including a history of hepatitis-C status post recent completion of therapy, alcohol and drug use, cirrhosis with varices as well as lower extremity lymphedema and wounds. Patient had recent hospitalization and was discharged on 03/03 with a history of trauma to his left lower extremity with wound and complications of cellulitis. Patient was treated in the hospital with IV antibiotics and deescalated to Keflex on discharge. Additional history includes malnutrition, obesity, leg edema with recurrent infections, cocaine use, marijuana use, pancytopenia for which he is seen Hematology, asthma/COPD. No known allergies to antibiotics or other medications. Patient has a history of ongoing marijuana use, during recent admission was found to be positive for cocaine although he denies any current drug use or alcohol use. Patient has had a difficult social situation where he lives in a house with other people and states it is difficult to keep his legs dressed and clean. Who states lately he is had the live in his car the last 2 or 3 days. Patient states in the last 2 or 3 days his legs have worsened including bilateral lower extremity pain with new onset right lower extremity drainage and redness. Patient feels chills but no fevers reported by patient. He was previously seen in the hospital and given Keflex on discharge and then followed up in [facility] on 03/11 and was changed to cefadroxil however the patient did not fruit picker the medication and had been off of antibiotics for 2-3 days prior to admission per his report. His main concern at initial consultation was lower extremity pain he denies any respiratory, abdominal or urinary or symptoms. Patient was seen in the emergency room on 03/16 and began on Unasyn. He was subsequently admitted for inpatient care and IV antibiotics. Infectious disease consult 03/17/2023, patient on Unasyn and clindamycin Interval events: 24 hour events reviewed No fevers. Legs remain dressed. Patient states he wants to go to [facility] facility. Patient states right upper extremity IV is irritating in his antecubital space. Discussed with him midline order. Ongoing IV antibiotics. Patient also complains of feeling like he is withdrawing medications and once medication adjustment and he was encouraged to talk to hospital providers this morning. ROS A complete review of systems are negative except those consistent with HPI OBJECTIVE Past Medical History: Diagnosis Date Asthma Essential hypertension, benign MRSA (methicillin resistant staph aureus) culture positive rt. lower posteria leg Past Medical History: Diagnosis Date Asthma Essential hypertension, benign MRSA (methicillin resistant staph aureus) culture positive rt. lower posteria leg Past Surgical History: Procedure Laterality Date APPENDECTOMY BACK SURGERY FOOT SURGERY Patient Active Problem List Diagnosis Obesity: body mass index of 35.0-39.9 Hypotension Drug abuse Swelling of bilateral lower extremities Elevated d-dimer Anemia , unspecified Class 2 obesity due to excess calories without serious comorbidity in adult Hyponatremia Acute renal failure Generalized weakness Benign hypertension Asthma Idiopathic thrombocytopenic purpura (ITP) Hyperbilirubinemia Elevated INR Pancytopenia Leukopenia Lymphopenia Microcytic hypochromic anemia Elevated BUN CRP elevated Rheumatoid factor positive 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 Proteinuria Severe protein-calorie malnutrition Chronic hepatitis B without hepatic coma Chronic hepatitis C without hepatic coma Hepatosplenomegaly Bilateral cellulitis of lower leg Cellulitis Cellulitis and abscess of foot Social History Socioeconomic History Marital status: Spouse name: Not on file Number of children: Not on file Years of education: Not on file Highest education level: Not on file Occupational History Employer: UNEMPLOYED Tobacco Use Smoking status: Former Types: Cigarettes Quit date: 2007 Years since quittin.5 Smokeless tobacco: Current Types: Chew Vaping Use Vaping Use: Never used Substance and Sexual Activity Alcohol use: Not Currently Drug use: Not Currently Types: Marijuana Comment: Former Sexual activity: Yes Partners: Female Other Topics Concern Service Not Asked Blood Transfusions Not Asked Caffeine Concern Not Asked Occupational Exposure Not Asked Hobby Hazards Not Asked Sleep Concern Not Asked Stress Concern Not Asked Weight Concern Not Asked Special Diet Not Asked Back Care Not Asked Exercise Not Asked Bike Helmet Not Asked Seat Belt Not Asked Domestic Violence No Social History Narrative Not on file Social Determinants of Health Financial Resource Strain: Not on file Food Insecurity: Not on file Transportation Needs: Not on file Physical Activity: Not on file Stress: Not on file Social Connections: Not on file Intimate Partner Violence: Not on file Housing Stability: Not on file Current Facility-Administered Medications: Acetaminophen (TYLENOL) tablet 650 mg, 650 mg, Oral, Q4H PRN, Nestor Alonzo MD Ampicillin-Sulbactam Sodium (UNASYN) 3 g in sodium chloride 0.9% (MB PLUS) 100 mL (total volume) IVPB, 3 g, Intravenous, Q6H, Nestor Alonzo MD, Last Rate: 200 mL/hr at 03/19/23 0809, 3 g at 03/19/23 0809 bisacodyl (DULCOLAX) suppository 10 mg, 10 mg, Rectal, Daily PRN, Nestor Alonzo MD clindamycin (CLEOCIN) 900 mg in normal saline 50 ml premix IVPB, 900 mg, Intravenous, Q8H, Nathan Hayden MD, Last Rate: 100 mL/hr at 03/19/23 0644, 900 mg at 03/19/23 0644 collagenase (SANTYL) ointment 1 Application, 1 Application, Topical, Daily, Power Nelson MD Docusate (COLACE) capsule 100 mg, 100 mg, Oral, Q12H, Nestor Alonzo MD, 100 mg at 03/17/231999 Enoxaparin Sodium (LOVENOX) injection 40 mg, 40 mg, Subcutaneous, QHS, Isabel Tang CNP, 40 mg at 03/18/23 2147 Fluticasone-Salmeterol (ADVAIR HFA) 115-21 MCG/ACT inhaler 2 puff, 2 puff, Inhalation, BID, Isabel Tang CNP, 2 puff at 03/19/23 0809 furOSEmide (LASIX) injection 40 mg, 40 mg, Intravenous, Q24H, Isabel Tang CNP, 40 mg at 03/18/23 1608 Gabapentin (NEURONTIN) capsule 400 mg, 400 mg, Oral, 4x daily, Isabel Tang CNP, 400 mg at 03/19/23 0811 hydrOXYzine HCl (ATARAX) tablet 25 mg, 25 mg, Oral, TID PRN, Isabel Tang CNP, 25 mg at 03/19/23 0439 Ipratropium-albuterol (DUONEB) 0.5-2.5 (3) MG/3ML nebulizer solution 3 mL, 3 mL, Nebulization, Q4H PRN, Isabel Tang CNP Ketorolac (TORADOL) injection 15 mg, 15 mg, Intravenous, Q6H PRN, Isabel Tang CNP Labetalol (NORMODYNE) injection 20 mg, 20 mg, Intravenous, Q6H PRN, Isabel Tang CNP Magnesium sulfate 2 g/50 ml in sterile water premix IVPB 2 g 50 mL (total volume), 2 g, Intravenous, Daily, Isabel Tang CNP, 2 g at 03/18/23 0849 Melatonin tablet 6 mg, 6 mg, Oral, QHS PRN, Isabel Tang CNP, 6 mg at 03/19/23 0035 Ondansetron 4mg/2ml (ZOFRAN) injection 4 mg, 4 mg, Intravenous, Q4H PRN, Nestor Alonzo MD Pantoprazole (PROTONIX) tablet DR 40 mg, 40 mg, Oral, Daily, Isabel Tang CNP, 40 mg at 03/19/23 0811 Potassium chloride (K-DUR) tablet ER 40 mEq, 40 mEq, Oral, Daily OR potassium chloride 40 mEq in 0.9% sodium chloride 500 ml IVPB, 40 mEq, Intravenous, Daily, Isabel Tang CNP traMADol (ULTRAM) tablet 100 mg, 100 mg, Oral, Q4H PRN, Isabel Tang CNP, 100 mg at 03/19/23 0810 triamcinolone (KENALOG) 0.1 % cream 1 Application, 1 Application, Topical, BID, Power Nelson MD No Known Allergies Vitals: 03/18/23 2350 03/19/23 0330 03/19/23 0749 03/19/23 0813 BP: 116/64 103/63 97/60 Pulse: 81 76 69 Resp: 18 20 18 Temp: 97.6 degrees F (36.4 degrees C) 97.5 degrees F (36.4 degrees C) 98.2 degrees F (36.8 degrees C) TempSrc: Oral Oral Oral SpO2: 96% 95% 96% 96% Weight: Height: Intake/Output Summary (Last 24 hours) at 03/19/2023 0839 Last data filed at 03/18/2023 2250 Gross per 24 hour Intake 500 ml Output 1650 ml Net -1150 ml Physical Exam: CONSTITUTIONAL: Alert and Oriented, in appearance with some noted wasting features, afebrile HEENT: Normocephalic and atraumatic, Sclera anicteric, PERRL, poor dentition CARDIAC: Normal rate, regular rhythm, normal heart sounds and intact distal pulses, no murmurs/rubs/clicks/gallops RESP: Effort normal. Few scattered rales, overall clear anteriorly, RA GI: Soft. Bowel sounds are normal. Nontender. Nondistended. Obese : No Suprapubic tenderness EXTREMITES: No cyanosis, clubbing; bilateral lower extremity lymphedema. Has a wound on his left tibia area with blood underneath skin Right lower extremity plantar surface and medial area with a lesion that has been chronically present. Right lower extremity has cellulitis and an impetigo like rash - less inflamed DERM: Skin is warm and dry. MUSCULARSKELETAL: No septic arthritis noted NEUROLOGIC: Fatigued in appearance but answers questions appropriately LINES: All line sites are clear and without evidence of infection LAB RESULTS: WBC (WHITE BLOOD COUNT) Date/Time Value Ref Range Status 03/19/2023 05:19 AM 2.6 (L) 3.6 - 11.0 10*3/uL Final 03/18/2023 04:47 AM 2.5 (L) 3.6 - 11.0 10*3/uL Final 03/17/2023 05:26 AM 2.2 (L) 3.6 - 11.0 10*3/uL Final 03/16/2023 05:53 PM 3.6 3.6 - 11.0 10*3/uL Final 03/03/2023 05:38 AM 2.8 (L) 3.6 - 11.0 10*3/uL Final 03/02/2023 05:57 AM 2.0 (L) 3.6 - 11.0 10*3/uL Final 03/01/2023 03:59 AM 2.0 (L) 3.6 - 11.0 10*3/uL Final HEMOGLOBIN (HGB) Date/Time Value Ref Range Status 03/19/2023 05:19 AM 9.3 (L) 14.0 - 18.0 G/DL Final 03/18/2023 04:47 AM 9.9 (L) 14.0 - 18.0 G/DL Final 03/17/2023 05:26 AM 10.0 (L) 14.0 - 18.0 G/DL Final 03/16/2023 05:53 PM 10.5 (L) 14.0 - 18.0 G/DL Final 03/03/2023 05:38 AM 9.3 (L) 14.0 - 18.0 G/DL Final 03/02/2023 05:57 AM 8.7 (L) 14.0 - 18.0 G/DL Final 03/01/2023 03:59 AM 8.8 (L) 14.0 - 18.0 G/DL Final HEMATOCRIT (HCT) Date/Time Value Ref Range Status 03/19/2023 05:19 AM 28.9 (L) 42.0 - 52.0 % Final 03/18/2023 04:47 AM 30.5 (L) 42.0 - 52.0 % Final 03/17/2023 05:26 AM 31.4 (L) 42.0 - 52.0 % Final 03/16/2023 05:53 PM 33.6 (L) 42.0 - 52.0 % Final 03/03/2023 05:38 AM 29.1 (L) 42.0 - 52.0 % Final 03/02/2023 05:57 AM 27.6 (L) 42.0 - 52.0 % Final 03/01/2023 03:59 AM 27.4 (L) 42.0 - 52.0 % Final PLATELET COUNT Date/Time Value Ref Range Status 03/19/2023 05:19 AM 87 (L) 130 - 400 10*3/uL Final 03/18/2023 04:47 AM 81 (L) 130 - 400 10*3/uL Final 03/17/2023 05:26 AM 91 (L) 130 - 400 10*3/uL Final 03/16/2023 05:53 PM 106 (L) 130 - 400 10*3/uL Final 03/03/2023 05:38 AM 96 (L) 130 - 400 10*3/uL Final 03/02/2023 05:57 AM 93 (L) 130 - 400 10*3/uL Final 03/01/2023 03:59 AM 85 (L) 130 - 400 10*3/uL Final POTASSIUM Date/Time Value Ref Range Status 03/19/2023 05:19 AM 4.1 3.5 - 5.1 MMOL/L Final 03/18/2023 04:47 AM 4.0 3.5 - 5.1 MMOL/L Final 03/17/2023 05:26 AM 3.6 3.5 - 5.1 MMOL/L Final 03/16/2023 05:53 PM 3.5 3.5 - 5.1 MMOL/L Final 03/03/2023 05:38 AM 4.3 3.5 - 5.1 MMOL/L Final 03/02/2023 05:57 AM 4.1 3.5 - 5.1 MMOL/L Final 03/01/2023 03:59 AM 4.1 3.5 - 5.1 MMOL/L Final CHLORIDE Date/Time Value Ref Range Status 03/19/2023 05:19 AM 99 98 - 107 MMOL/L Final Comment: Please note: Triglyceride levels of 600mg/dL or higher may positively bias chloride results by approximately 2.1 mmol 03/18/2023 04:47 AM 97 (L) 98 - 107 MMOL/L Final Comment: Please note: Triglyceride levels of 600mg/dL or higher may positively bias chloride results by approximately 2.1 mmol 03/17/2023 05:26 AM 96 (L) 98 - 107 MMOL/L Final Comment: Please note: Triglyceride levels of 600mg/dL or higher may positively bias chloride results by approximately 2.1 mmol 03/16/2023 05:53 PM 96 (L) 98 - 107 MMOL/L Final Comment: Please note: Triglyceride levels of 600mg/dL or higher may positively bias chloride results by approximately 2.1 mmol 03/03/2023 05:38 AM 113 (H) 98 - 107 MMOL/L Final Comment: Please note: Triglyceride levels of 600mg/dL or higher may positively bias chloride results by approximately 2.1 mmol 03/02/2023 05:57 AM 114 (H) 98 - 107 MMOL/L Final Comment: Please note: Triglyceride levels of 600mg/dL or higher may positively bias chloride results by approximately 2.1 mmol 03/01/2023 03:59 AM 108 (H) 98 - 107 MMOL/L Final Comment: Please note: Triglyceride levels of 600mg/dL or higher may positively bias chloride results by approximately 2.1 mmol CARBON DIOXIDE (CO2) Date/Time Value Ref Range Status 03/19/2023 05:19 AM 33 (H) 22 - 30 MMOL/L Final 03/18/2023 04:47 AM 31 (H) 22 - 30 MMOL/L Final 03/17/2023 05:26 AM 32 (H) 22 - 30 MMOL/L Final 03/16/2023 05:53 PM 33 (H) 22 - 30 MMOL/L Final 03/03/2023 05:38 AM 25 22 - 30 MMOL/L Final 03/02/2023 05:57 AM 27 22 - 30 MMOL/L Final 03/01/2023 03:59 AM 25 22 - 30 MMOL/L Final GLUCOSE, POINT OF CARE Date/Time Value Ref Range Status 11/13/2021 01:10 PM 111 (H) 70 - 100 MG/DL Final Glucose Date/Time Value Ref Range Status 03/19/2023 05:19 AM 103 (H) 70 - 100 MG/DL Final Comment: NORMAL <100 mg/dL PREDIABETES 101-126 mg/dL DIABETES 126 mg/dL or higher 03/18/2023 04:47 AM 97 70 - 100 MG/DL Final Comment: NORMAL <100 mg/dL PREDIABETES 101-126 mg/dL DIABETES 126 mg/dL or higher 03/17/2023 05:26 AM 90 70 - 100 MG/DL Final Comment: NORMAL <100 mg/dL PREDIABETES 101-126 mg/dL DIABETES 126 mg/dL or higher 03/16/2023 05:53 PM 116 (H) 70 - 100 MG/DL Final Comment: NORMAL <100 mg/dL PREDIABETES 101-126 mg/dL DIABETES 126 mg/dL or higher 03/03/2023 05:38 AM 93 70 - 100 MG/DL Final Comment: NORMAL <100 mg/dL PREDIABETES 101-126 mg/dL DIABETES 126 mg/dL or higher 03/02/2023 05:57 AM 87 70 - 100 MG/DL Final Comment: NORMAL <100 mg/dL PREDIABETES 101-126 mg/dL DIABETES 126 mg/dL or higher 03/01/2023 03:59 AM 116 (H) 70 - 100 MG/DL Final Comment: NORMAL <100 mg/dL PREDIABETES 101-126 mg/dL DIABETES 126 mg/dL or higher BUN Date/Time Value Ref Range Status 03/19/2023 05:19 AM 25 (H) 7 - 20 MG/DL Final 03/18/2023 04:47 AM 22 (H) 7 - 20 MG/DL Final 03/17/2023 05:26 AM 16 7 - 20 MG/DL Final 03/16/2023 05:53 PM 15 7 - 20 MG/DL Final 03/03/2023 05:38 AM 16 7 - 20 MG/DL Final 03/02/2023 05:57 AM 13 7 - 20 MG/DL Final 03/01/2023 03:59 AM 15 7 - 20 MG/DL Final CREATININE SERUM Date/Time Value Ref Range Status 03/19/2023 05:19 AM 0.70 0.7 - 1.2 MG/DL Final 03/18/2023 04:47 AM 0.70 0.7 - 1.2 MG/DL Final 03/17/2023 05:26 AM 0.50 (L) 0.7 - 1.2 MG/DL Final 03/16/2023 05:53 PM 0.59 (L) 0.70 - 1.20 MG/DL Final 03/03/2023 05:38 AM 0.50 (L) 0.7 - 1.2 MG/DL Final 03/02/2023 05:57 AM 0.50 (L) 0.7 - 1.2 MG/DL Final 03/01/2023 03:59 AM 0.49 (L) 0.7 - 1.2 MG/DL Final Albumin Date/Time Value Ref Range Status 03/19/2023 05:19 AM 2.8 (L) 3.5 - 5.0 G/dl Final 03/18/2023 04:47 AM 2.9 (L) 3.5 - 5.0 G/dl Final 03/17/2023 05:26 AM 3.0 (L) 3.5 - 5.0 G/dl Final 03/16/2023 05:53 PM 3.6 3.5 - 5.0 G/dl Final 03/03/2023 05:38 AM 2.9 (L) 3.5 - 5.0 G/dl Final 03/02/2023 05:57 AM 2.6 (L) 3.5 - 5.0 G/dl Final 03/01/2023 03:59 AM 2.6 (L) 3.5 - 5.0 G/dl Final CALCIUM Date/Time Value Ref Range Status 03/19/2023 05:19 AM 7.4 (L) 8.4 - 10.2 MG/DL Final 03/18/2023 04:47 AM 7.4 (L) 8.4 - 10.2 MG/DL Final 03/17/2023 05:26 AM 7.9 (L) 8.4 - 10.2 MG/DL Final 03/16/2023 05:53 PM 8.3 (L) 8.4 - 10.2 MG/DL Final 03/03/2023 05:38 AM 8.0 (L) 8.4 - 10.2 MG/DL Final 03/02/2023 05:57 AM 7.9 (L) 8.4 - 10.2 MG/DL Final 03/01/2023 03:59 AM 7.5 (L) 8.4 - 10.2 MG/DL Final ALKALINE PHOSPHATASE Date/Time Value Ref Range Status 03/16/2023 05:53 PM 53 38 - 126 IU/L Final 02/26/2023 09:32 PM 54 38 - 126 IU/L Final 02/04/2023 02:50 PM 67 38 - 126 IU/L Final 11/29/2022 01:39 PM 64 38 - 126 IU/L Final 10/27/2022 10:32 AM 66 38 - 126 IU/L Final 09/13/2022 11:05 AM 60 38 - 126 IU/L Final 03/07/2022 12:25 AM 45 38 - 126 IU/L Final AST Date/Time Value Ref Range Status 03/16/2023 05:53 PM 38 17 - 59 IU/L Final 02/26/2023 09:32 PM 26 17 - 59 IU/L Final 02/04/2023 02:50 PM 21 15 - 41 IU/L Final 11/29/2022 01:39 PM 25 15 - 41 IU/L Final 10/27/2022 10:32 AM 22 15 - 41 IU/L Final 09/13/2022 11:05 AM 25 15 - 41 IU/L Final 03/07/2022 12:25 AM 34 15 - 41 IU/L Final BILIRUBIN, TOTAL Date/Time Value Ref Range Status 03/16/2023 05:53 PM 1.6 (H) 0.2 - 1.3 MG/DL Final 02/28/2023 04:47 AM 0.7 Final Comment: Reference range: 0.0 to 1.2 Unit: mg/dL 02/26/2023 09:32 PM 1.1 0.2 - 1.3 MG/DL Final 02/04/2023 02:50 PM 1.1 0.2 - 1.2 MG/DL Final 11/29/2022 01:39 PM 0.9 0.2 - 1.2 MG/DL Final 10/27/2022 10:32 AM 1.5 (H) 0.2 - 1.2 MG/DL Final 09/13/2022 11:05 AM 1.3 (H) 0.2 - 1.2 MG/DL Final ALT Date/Time Value Ref Range Status 03/16/2023 05:53 PM 21 <50 IU/L Final 02/26/2023 09:32 PM 17 <50 IU/L Final 02/04/2023 02:50 PM 14 (L) 17 - 63 IU/L Final 11/29/2022 01:39 PM 14 (L) 17 - 63 IU/L Final 10/27/2022 10:32 AM 12 (L) 17 - 63 IU/L Final 09/13/2022 11:05 AM 13 (L) 17 - 63 IU/L Final 03/07/2022 12:25 AM 20 17 - 63 IU/L Final ESTIMATED GFR, NON AMER Date/Time Value Ref Range Status 03/19/2023 05:19 AM 124 ml/min/1.73sq.m Final 03/18/2023 04:47 AM 124 ml/min/1.73sq.m Final 03/17/2023 05:26 AM 183 ml/min/1.73sq.m Final 03/16/2023 05:53 PM 151 ml/min/1.73sq.m Final 03/03/2023 05:38 AM 183 ml/min/1.73sq.m Final 03/02/2023 05:57 AM 183 ml/min/1.73sq.m Final 03/01/2023 03:59 AM 187 ml/min/1.73sq.m Final ESTIMATED GFR, Date/Time Value Ref Range Status 03/19/2023 05:19 AM 150 ml/min/1.73sq.m Final 03/18/2023 04:47 AM 150 ml/min/1.73sq.m Final 03/17/2023 05:26 AM 221 ml/min/1.73sq.m Final 03/16/2023 05:53 PM 183 ml/min/1.73sq.m Final 03/03/2023 05:38 AM 221 ml/min/1.73sq.m Final 03/02/2023 05:57 AM 221 ml/min/1.73sq.m Final 03/01/2023 03:59 AM 226 ml/min/1.73sq.m Final GFR COMMENT Date/Time Value Ref Range Status 03/19/2023 05:19 AM Average GFR for 50-59 years old = 93. Final Comment: Chronic Kidney disease, GFR = <60. Kidney failure, GFR = <15. The GFR estimate is not adjusted for extreme body surface area or acute process, nor has it been validated for women or ethnic groups other than and . Testing performed at [facility], [place], [place] [address] CBC Lab Results Component Value Date WBC 2.6 (L) 03/19/2023 HGB 9.3 (L) 03/19/2023 HCT 28.9 (L) 03/19/2023 PLATELET 87 (L) 03/19/2023 MCV 71.4 (L) 03/19/2023 EDIF Lab Results Component Value Date RBCDISTRIBU 16.1 (H) 03/19/2023 EOSINOPHILS 12 (H) 03/19/2023 EOSINOPHILS 0.3 03/19/2023 BASOPHILS 1 03/19/2023 BASOPHILS 0.0 03/19/2023 LYMPHOCYTABS 0.8 (L) 03/19/2023 PLATELET 87 (L) 03/19/2023 MPV 8.4 03/19/2023 Lab Results Component Value Date SODIUM 135 (L) 03/19/2023 POTASSIUM 4.1 03/19/2023 CHLORIDE 99 03/19/2023 CO2 33 (H) 03/19/2023 BUN 25 (H) 03/19/2023 CREATSERUM 0.70 03/19/2023 GLUCOSE 103 (H) 03/19/2023 Micro Blood culture 03/17 no growth Nares 03/16-, history of previous MSSA Left lower extremity wounds 03/11 with Enterococcus sensitive to ampicillin Enterococcus Faecalis Group D Ampicillin <=2 SUSCEPT... SS Gentamicin High Level RESISTANT R PENICILLIN G 2 SUSCEPTIBLE SS Streptomycin High Level SUSCEPTIBLE S Vancomycin 1 SUSCEPTIBLE SS Susceptibility Comments Enterococcus Faecalis Group D ENTEROCOCCUS FAECALIS GROUP D Specimen Collected: 03/11/23 12:23 Last Resulted: 03/14/23 11:24 Lab Flowsheet Order Details View Encounter Lab and Collection Details Routing Result History View All Conversations on this Encounter Result Care Coordination Patient Communication Add Comments Not seen Back to Top Result Report CULTURE WOUND (Order #[id number]) on 03/11/23 View SmartLink Info CULTURE WOUND (Order #[id number]) on 03/11/23 CULTURE WOUND: Patient Communication Add Comments Not seen Collection Information Specimen ID: [id number] Swab LEG Collected: 03/11/2023 12:23 PM 200 Received: 03/11/2023 12:23 PM Resulting Agency: [facility] - [address] [place] [address] [address] [facility] [address] Wound culture 02/27 with MSSA Staphylococcus aureus Clindamycin <=0.25 SUSC... SS Erythromycin >=8 RESISTANT R Gentamicin <=0.5 SUSCE... SS Inducible Clindamycin Resistance NEGATIVE S Levofloxacin 0.25 SUSCEP... SS Linezolid 2 SUSCEPTIBLE SS Oxacillin 0.5 SUSCEPT... SS PENICILLIN G >=0.5 RESIS... R Rifampin <=0.5 SUSCE... SS Tetracycline <=1 SUSCEPT... SS Trimethoprim/Sulfamethoxazol <=10 SUSCEP... SS Vancomycin <=0.5 SUSCE... SS No orders to display ASSESSMENT AND PLAN . Carmen Gilman 57 y.o. admitted for lower extremity wounds and worsening infections in the setting of a history of pancytopenia, end-stage liver disease and history of drug and alcohol use Left lower extremity laceration/wound infection -Traumatic injury on 02/25 -nares shows MSSA during early February admission, but follow up testing negative -Blood cultures 02/26 and 02/27 no growth -Wound culture 02/27 MSSA; MSSA is likely the main pathogen, also with a bacillus species on file which is likely more of a colonizer of the skin. -culture also showed Enterococcus on 03/19 but this is more likely a colonizer -ultrasound negative for DVT but does show some reactive inguinal lymph nodes -s/p cefepime and Vancomycin ended 03/03 and transitioned to oral Keflex 500 mg 4 times a day for 8 days, 03/03-03/11, then to cefadroxil, but he never picked up the medication -local wound care -no clear indications for surgical consult at this time Right lower extremity soft tissue infection -appearance is consistent with an impetigo like infection -check culture but most likely Staphylococcus or Streptococcus given appearance the patient is at risk for other organisms given his living situation and comorbidities; ordered 03/17 but no current results -Unasyn 03/16-current -clindamycin 03/17-03/19 and then discontinued -no evidence of sepsis with normal CRP and lactate levels -blood culture 03/18 NGTD -local dressings, wound care with elevation and fluid management -check culture if any drainage -continue Unasyn and we will order midline and patient can be discharged from an Infectious Disease standpoint to a nursing facility and this was discussed with patient who is in agreement plan; pending wound cx 03/17 results Hepatitis C - INR 1.16 mildly elevated, fibrosure 0.78 consistent with cirrhosis at initial eval, alpha-fetoprotein which was normal -NS5A genotype 3 resistance testing: negative -Hx of decompensated cirrhosis given varices noted. -S/p daily fixed dosing of sofosbuvir 400mg/velpatasvir 100mg (epclusa) x 24 weeks, 08/23/22-current x 24 weeks; completed treatment in early February -Plan SVR in 3 months Cirrhosis/esophageal varices -Patient has seen GI specialist -Testing including ISSAC, Anca, teddy, antimitochondrial antibody, EBV, CMV, ceruloplasmin were normal -EGD with varices, managed by GI -bilirubin increased to 1.6 Positive hepatitis B core antibody -Patient is surface antibody positive but surface antigen negative -Obtained hepatitis B DNA level 06/09 which was negative Drug use -Recommend ongoing cessation, recent positive cocaine test during admission in February -patient endorses using marijuana -recommend cessation of drug use and this was discussed -drug screen positive for cocaine metabolite, benzodiazepines and buprenorphine -may benefit from linkage to drug cessation program Health care maintenance -Patient is immune against hepatitis A and hepatitis B based on serologies -Recommend influenza, coronavirus, shingles, pneumococcal vaccinations but the patient has deferred previously History of alcohol abuse -Currently off of alcohol Pancytopenia -ongoing history of pancytopenia, likely due to underlying liver disease -patient seeing student services vice president Dr Dahl -Positive testing for positive platelet antibodies IIB/IIIA, possible ITP -Possible thalassemia, electrophoresis was not performed though according to lab review -reticulocyte percentage 2.2, iron, ferritin, B12 and folate normal in past -patient seeing student services vice president Dr Dahl -Positive testing for positive platelet antibodies IIB/IIIA, possible ITPl Soluble transferrin elevated 27 -White count 2.2, 2.5, 2.6 -Hemoglobin 10, 9.9, 9.3 -Platelets of 91, 81, 87 -Stably low Obesity -Patient with ongoing efforts to lose weight -BMI 31 Right lower extremity wound/feet& toe deformities -Patient saw podiatry Dr. Pelayo in [facility] and then to [facility] with Dr. Bryan; plan shave procedure once legs further healed noted -no Podiatry consult needs at this time, would recommend follow up as outpatient Incarceration history -Patient concerned that he may have been exposed to tuberculosis and TB testing was negative Hx of MSSA colonization -Positive 02/27 -Repeat testing negative 03/16 Lymphedema -Chronic swelling noted -Elevation and diuretics -history of Unna boot use, none current -Ultrasound without DVT but did show reactive adenopathy Mildly elevating Cr -Cr 0.5, 0.7, 0.7 -Trends stable, adequate hydration COPD.RAD -inhalers Disposition -okay from ID perspective for discharge with midline and IV antibiotics with close infectious disease clinic follow up once the patient is stable from hospitalist standpoint for discharge -patient states he wishes to go to [facility] and [place] Dr. Nathan Hayden MD 03/18/23 1600 Time In/Out Time In 1508 Time Out 1523 Total Visit Time 15 minutes Total Treatment Time (skilled, billable minutes) 15 minutes PT Therapy Completed Yes Subjective Existing Precautions/Restrictions fall General Pain Documentation (Adult, OB, Peds) Presence of Pain complains of pain/discomfort Pain Location leg, left;leg, right;arm, left Select Pain Scale DVPRS (Defense and Veterans Pain Rating Scale) (Adult-Cognitively Intact) DVPRS (Defense and Veterans Pain Rating Scale) DVPRS: Rest 8- severe pain Objective Therapeutic Interventions FLAKEBOARD LINE TENDER instructed pt in supine to sit EOB, CGA. Pt sat EOB x3min with B UE support. Pt completed sit to stand from EOB to FWW with Bala and VC for ant pelvic tilt and upright posture. Pt ambulated 5' with FWW and CGA to recliner. Completed stand to sit with CGA and VC for slowed descent to improve safety. Pt declined further tx. Clinical Impression PT Therapies Still to Complete 5 Plan Plan for next visit mobility and strengthening Maintain frequency yes Additional Comments Pt left seated in reclciner with call light in reach and all needs met. Meron Arias PTA [facility] LOS: 2 days SUBJECTIVE: Patient resting in bed/chair, Denies fever, chills, chest pain or sob. Is eating and drinking well. C/o pain to legs PHYSICAL EXAMINATION: Blood pressure 116/72, pulse 66, temperature 97.7 F (36.5 C), temperature source Oral, resp. rate 18, height 1.829 m (6' 0.01"), weight 104.3 kg (230 lb), SpO2 94 %. Gen: Comfortable in bed, no signs of distress HEENT: Normocephalic, atraumatic, Moist oral mucous membranes Neck: supple, Lungs: Clear to auscultation BL, anterior and posterior, without rales, rhonchi or wheezing Heart: Regular in rate and rhythm. Without murmur, rub or gallop Abd: Soft and non-distended. Non tender BSPx 4 Skin: No obvious rashes or cyanosis. ble wounds less redness Neuro: Grossly non-focal examination. Intake and Output: Intake/Output Summary (Last 24 hours) at 03/18/2023 1552 Last data filed at 03/18/2023 1300 Gross per 24 hour Intake 844 ml Output 1200 ml Net -356 ml Daily Weight: Wt Readings from Last 3 Encounters: 03/16/23 99.8 kg (220 lb) 03/11/23 101.1 kg (222 lb 12.8 oz) 02/27/23 105.3 kg (232 lb 3.2 oz) CURRENT MEDICATIONS: Current Facility-Administered Medications Medication Dose Route Frequency Provider Last Rate Last Admin Acetaminophen (TYLENOL) tablet 650 mg 650 mg Oral Q4H PRN Nestor Alonzo MD Ampicillin-Sulbactam Sodium (UNASYN) 3 g in sodium chloride 0.9% (MB PLUS) 100 mL (total volume) IVPB 3 g Intravenous Q6H Nestor Alonzo MD 200 mL/hr at 03/18/23 1133 3 g at 03/18/23 1133 bisacodyl (DULCOLAX) suppository 10 mg 10 mg Rectal Daily PRN Nestor Alonzo MD clindamycin (CLEOCIN) 900 mg in normal saline 50 ml premix IVPB 900 mg Intravenous Q8H Nathan Hayden MD 100 mL/hr at 03/18/23 0538 900 mg at 03/18/23 0538 Docusate (COLACE) capsule 100 mg 100 mg Oral Q12H Nestor Alonzo MD 100 mg at 03/17/231999 Enoxaparin Sodium (LOVENOX) injection 40 mg 40 mg Subcutaneous QHS Isabel Tang CNP 40 mg at 03/17/231999 Fluticasone-Salmeterol (ADVAIR HFA) 115-21 MCG/ACT inhaler 2 puff 2 puff Inhalation BID Isabel Tang CNP 2 puff at 03/18/23 0849 furOSEmide (LASIX) injection 40 mg 40 mg Intravenous Q24H Isabel Tang CNP 40 mg at 03/17/23 1424 Gabapentin (NEURONTIN) capsule 400 mg 400 mg Oral 4x daily Isabel Tang CNP 400 mg at 03/18/23 1248 hydrOXYzine HCl (ATARAX) tablet 25 mg 25 mg Oral TID PRN Isabel Tang CNP 25 mg at 03/18/23 0137 Ipratropium-albuterol (DUONEB) 0.5-2.5 (3) MG/3ML nebulizer solution 3 mL 3 mL Nebulization Q4H PRN Isabel Tang CNP Ketorolac (TORADOL) injection 15 mg 15 mg Intravenous Q6H PRN Isabel Tang CNP Labetalol (NORMODYNE) injection 20 mg 20 mg Intravenous Q6H PRN Isabel Tang CNP Magnesium sulfate 2 g/50 ml in sterile water premix IVPB 2 g 50 mL (total volume) 2 g Intravenous Daily Isabel Tang CNP 2 g at 03/18/23 0849 Melatonin tablet 6 mg 6 mg Oral QHS PRN Isabel Tang CNP Ondansetron 4mg/2ml (ZOFRAN) injection 4 mg 4 mg Intravenous Q4H PRN Nestor Alonzo MD Pantoprazole (PROTONIX) tablet DR 40 mg 40 mg Oral Daily Isabel Tang CNP 40 mg at 03/18/23 0847 Potassium chloride (K-DUR) tablet ER 40 mEq 40 mEq Oral Daily Isabel Tang CNP Or potassium chloride 40 mEq in 0.9% sodium chloride 500 ml IVPB 40 mEq Intravenous Daily Isabel Tang CNP traMADol (ULTRAM) tablet 100 mg 100 mg Oral Q4H PRN Isabel Tang CNP 100 mg at 03/18/23 1343 [facility]: CBC Lab Results Component Value Date/Time WBC 2.5 (L) 03/18/2023 04:47 AM WBC 2.2 (L) 03/17/2023 05:26 AM WBC 3.6 03/16/2023 05:53 PM HGB 9.9 (L) 03/18/2023 04:47 AM HGB 10.0 (L) 03/17/2023 05:26 AM HGB 10.5 (L) 03/16/2023 05:53 PM HCT 30.5 (L) 03/18/2023 04:47 AM HCT 31.4 (L) 03/17/2023 05:26 AM HCT 33.6 (L) 03/16/2023 05:53 PM PLATELET 81 (L) 03/18/2023 04:47 AM PLATELET 91 (L) 03/17/2023 05:26 AM PLATELET 106 (L) 03/16/2023 05:53 PM Chemistry Lab Results Component Value Date/Time GLUCOSE 97 03/18/2023 04:47 AM GLUCOSE 90 03/17/2023 05:26 AM GLUCOSE 116 (H) 03/16/2023 05:53 PM GLUCOSE 111 (H) 11/13/2021 01:10 PM BUN 22 (H) 03/18/2023 04:47 AM BUN 16 03/17/2023 05:26 AM BUN 15 03/16/2023 05:53 PM CREATSERUM 0.70 03/18/2023 04:47 AM CREATSERUM 0.50 (L) 03/17/2023 05:26 AM CREATSERUM 0.59 (L) 03/16/2023 05:53 PM SODIUM 134 (L) 03/18/2023 04:47 AM SODIUM 133 (L) 03/17/2023 05:26 AM SODIUM 137 03/16/2023 05:53 PM POTASSIUM 4.0 03/18/2023 04:47 AM POTASSIUM 3.6 03/17/2023 05:26 AM POTASSIUM 3.5 03/16/2023 05:53 PM CHLORIDE 97 (L) 03/18/2023 04:47 AM CHLORIDE 96 (L) 03/17/2023 05:26 AM CHLORIDE 96 (L) 03/16/2023 05:53 PM CO2 31 (H) 03/18/2023 04:47 AM CO2 32 (H) 03/17/2023 05:26 AM CO2 33 (H) 03/16/2023 05:53 PM ALBUMIN 2.9 (L) 03/18/2023 04:47 AM ALBUMIN 3.0 (L) 03/17/2023 05:26 AM ALBUMIN 3.6 03/16/2023 05:53 PM CALCIUM 7.4 (L) 03/18/2023 04:47 AM CALCIUM 7.9 (L) 03/17/2023 05:26 AM CALCIUM 8.3 (L) 03/16/2023 05:53 PM PHOSPHORUS 4.0 03/18/2023 04:47 AM PHOSPHORUS 4.4 03/17/2023 05:26 AM PHOSPHORUS 3.2 03/03/2023 05:38 AM MAGNESIUM 1.8 03/18/2023 04:47 AM MAGNESIUM 1.7 03/17/2023 05:26 AM MAGNESIUM 1.9 03/03/2023 05:38 AM COAG Lab Results Component Value Date/Time PT 16.0 (H) 03/17/2023 02:57 PM PT 15.8 (H) 02/26/2023 09:32 PM PT 15.0 (H) 02/04/2023 02:50 PM INR 1.27 (H) 03/17/2023 02:57 PM INR 1.25 (H) 02/26/2023 09:32 PM INR 1.17 (H) 02/04/2023 02:50 PM PTT 32.5 03/07/2022 12:25 AM PTT 31.9 11/12/2021 07:15 PM Patient Lines/Drains/Airways Status Active Lines, Drains, Airways, & Wound Overview Name Placement date Placement time Site Days Peripheral IV Line - Single Lumen -- -- -- -- Wound Traumatic 02/26/232125 skin tear Anterior;Left;Lower Leg 02/26/232125 Leg 19 Wound Edema Associated Anterior;Lower;Right Leg -- -- Leg -- Wound Pressure Injury 03/16/23 2300 Right;Plantar Foot 03/16/23 2300 Foot 1 ASSESSMENT & PLAN: Bilateral cellulitis of lower leg- chronic hx of mrsa -follows with ID - wound and blood cultures pending- DR Hayden following- unasyn- - Drug abuse- drug screen + cocaine/benzo/buprren Anemia , unspecified Benign hypertension Asthma- duoneb as needed Idiopathic thrombocytopenic purpura (ITP)- stable plt - no bleeding Leukopenia Cirrhosis alcoholic - Hx lymphedema- lasix Chronic hepatitis C without hepatic coma Deconditioning- PT/OT - plan dc to snf dvt/gip ppi and lovenox Full Code I personally spent 8 minutes in the management of this patient, the details of my visit are listed in my documentation above. This plan of care was initiated in collaboration with the attending physician. Please note Portions of this note utilized [employer] dictation software, please excuse any typographical or grammatical errors. Associated attestation - Power Nelson MD - 03/18/2023 7:41 PM EDT I have independently interviewed and examined the patient. I have discussed armijo elements of the care plan with the [facility] [employer] RECEIVING and I agree with the findings and care plan as stated above. Time spent performing exam and reviewing diagnostics results, images and labs and discussing care plan with nurse practitioner and consulting physicians was 36 minutes D/w dr hayden Cont iv atbx Wound care Pain ctrl Pt aox3 Heart rrr Lungs clear Abd soft bs+ possible ascites No new neuro deficit No jaundice See orders Notified by KELLY Maynard that patient had questions. Met with patient, he asks about a referral to [facility]. Updated him on where things stand with [facility], he's still agreeable to [facility] at discharge but wants to try [facility] now. Spoke with Mireille at [facility], they do not take patient's insurance. Updated patient who will stick with [facility]. Followed up with [facility]. They are unable to commit to accepting patient until they know what antibiotics he will be discharged on. Will continue to follow and update facility as able. Chart reviewed. Message left for [facility] to see if they have accepted patient and started pre-cert. Infectious Disease SUBJECTIVE History of Present Illness: Carmen Gilman 57 y.o. male with a history of multiple medical problems including a history of hepatitis-C status post recent completion of therapy, alcohol and drug use, cirrhosis with varices as well as lower extremity lymphedema and wounds. Patient had recent hospitalization and was discharged on 03/03 with a history of trauma to his left lower extremity with wound and complications of cellulitis. Patient was treated in the hospital with IV antibiotics and deescalated to Keflex on discharge. Additional history includes malnutrition, obesity, leg edema with recurrent infections, cocaine use, marijuana use, pancytopenia for which he is seen Hematology, asthma/COPD. No known allergies to antibiotics or other medications. Patient has a history of ongoing marijuana use, during recent admission was found to be positive for cocaine although he denies any current drug use or alcohol use. Patient has had a difficult social situation where he lives in a house with other people and states it is difficult to keep his legs dressed and clean. Who states lately he is had the live in his car the last 2 or 3 days. Patient states in the last 2 or 3 days his legs have worsened including bilateral lower extremity pain with new onset right lower extremity drainage and redness. Patient feels chills but no fevers reported by patient. He was previously seen in the hospital and given Keflex on discharge and then followed up in Infectious Disease Clinic on 03/11 and was changed to cefadroxil however the patient did not fruit picker the medication and had been off of antibiotics for 2-3 days prior to admission per his report. His main concern at initial consultation was lower extremity pain he denies any respiratory, abdominal or urinary or symptoms. Patient was seen in the emergency room on 03/16 and began on Unasyn. He was subsequently admitted for inpatient care and IV antibiotics. Infectious disease consult 03/17/2023, patient on Unasyn and clindamycin Interval events: 24 hour events reviewed Afebrile. Patient continues to complain of significant pain in his legs with chart dressed status post wound care visit which was reviewed. Also as ice pack on right leg. Tolerating antibiotics without side effects or issues reported. Patient's main concern is wanting more pain medications. ROS A complete review of systems are negative except those consistent with HPI OBJECTIVE Past Medical History: Diagnosis Date Asthma Essential hypertension, benign MRSA (methicillin resistant staph aureus) culture positive rt. lower posteria leg Past Medical History: Diagnosis Date Asthma Essential hypertension, benign MRSA (methicillin resistant staph aureus) culture positive rt. lower posteria leg Past Surgical History: Procedure Laterality Date APPENDECTOMY BACK SURGERY FOOT SURGERY Patient Active Problem List Diagnosis Obesity: body mass index of 35.0-39.9 Hypotension Drug abuse Swelling of bilateral lower extremities Elevated d-dimer Anemia , unspecified Class 2 obesity due to excess calories without serious comorbidity in adult Hyponatremia Acute renal failure Generalized weakness Benign hypertension Asthma Idiopathic thrombocytopenic purpura (ITP) Hyperbilirubinemia Elevated INR Pancytopenia Leukopenia Lymphopenia Microcytic hypochromic anemia Elevated BUN CRP elevated Rheumatoid factor positive 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 Proteinuria Severe protein-calorie malnutrition Chronic hepatitis B without hepatic coma Chronic hepatitis C without hepatic coma Hepatosplenomegaly Bilateral cellulitis of lower leg Cellulitis Cellulitis and abscess of foot Social History Socioeconomic History Marital status: Spouse name: Not on file Number of children: Not on file Years of education: Not on file Highest education level: Not on file Occupational History Employer: UNEMPLOYED Tobacco Use Smoking status: Former Types: Cigarettes Quit date: 2007 Years since quittin.5 Smokeless tobacco: Current Types: Chew Vaping Use Vaping Use: Never used Substance and Sexual Activity Alcohol use: Not Currently Drug use: Not Currently Types: Marijuana Comment: Former Sexual activity: Yes Partners: Female Other Topics Concern Service Not Asked Blood Transfusions Not Asked Caffeine Concern Not Asked Occupational Exposure Not Asked Hobby Hazards Not Asked Sleep Concern Not Asked Stress Concern Not Asked Weight Concern Not Asked Special Diet Not Asked Back Care Not Asked Exercise Not Asked Bike Helmet Not Asked Seat Belt Not Asked Domestic Violence No Social History Narrative Not on file Social Determinants of Health Financial Resource Strain: Not on file Food Insecurity: Not on file Transportation Needs: Not on file Physical Activity: Not on file Stress: Not on file Social Connections: Not on file Intimate Partner Violence: Not on file Housing Stability: Not on file Current Facility-Administered Medications: Acetaminophen (TYLENOL) tablet 650 mg, 650 mg, Oral, Q4H PRN, Nestor Alonzo MD Ampicillin-Sulbactam Sodium (UNASYN) 3 g in sodium chloride 0.9% (MB PLUS) 100 mL (total volume) IVPB, 3 g, Intravenous, Q6H, Nestor Alonzo MD, Last Rate: 200 mL/hr at 03/18/23 0614, 3 g at 03/18/23 0614 bisacodyl (DULCOLAX) suppository 10 mg, 10 mg, Rectal, Daily PRN, Nestor Alonzo MD clindamycin (CLEOCIN) 900 mg in normal saline 50 ml premix IVPB, 900 mg, Intravenous, Q8H, Nathan Hayden MD, Last Rate: 100 mL/hr at 03/18/23 0538, 900 mg at 03/18/23 0538 Docusate (COLACE) capsule 100 mg, 100 mg, Oral, Q12H, Nestor Alonzo MD, 100 mg at 03/17/231999 Enoxaparin Sodium (LOVENOX) injection 40 mg, 40 mg, Subcutaneous, QHS, Isabel Tang CNP, 40 mg at 03/17/231999 Fluticasone-Salmeterol (ADVAIR HFA) 115-21 MCG/ACT inhaler 2 puff, 2 puff, Inhalation, BID, Isabel Tang CNP, 2 puff at 03/17/232002 furOSEmide (LASIX) injection 40 mg, 40 mg, Intravenous, Q24H, Isabel Tang CNP, 40 mg at 03/17/23 1424 Gabapentin (NEURONTIN) capsule 400 mg, 400 mg, Oral, 4x daily, Isabel Tang CNP, 400 mg at 03/17/231999 hydrOXYzine HCl (ATARAX) tablet 25 mg, 25 mg, Oral, TID PRN, Isabel Tang CNP, 25 mg at 03/18/23 0137 Ipratropium-albuterol (DUONEB) 0.5-2.5 (3) MG/3ML nebulizer solution 3 mL, 3 mL, Nebulization, Q4H PRN, Isabel Tang CNP Ketorolac (TORADOL) injection 15 mg, 15 mg, Intravenous, Q6H PRN, Isabel Tang CNP Labetalol (NORMODYNE) injection 20 mg, 20 mg, Intravenous, Q6H PRN, Isabel Tang CNP Magnesium sulfate 2 g/50 ml in sterile water premix IVPB 2 g 50 mL (total volume), 2 g, Intravenous, Daily, Isabel Tnag CNP Melatonin tablet 6 mg, 6 mg, Oral, QHS PRN, Isabel Tang CNP Ondansetron 4mg/2ml (ZOFRAN) injection 4 mg, 4 mg, Intravenous, Q4H PRN, Nestor Alonzo MD Pantoprazole (PROTONIX) tablet DR 40 mg, 40 mg, Oral, Daily, Isabel Tang CNP, 40 mg at 03/17/23 1516 Potassium chloride (K-DUR) tablet ER 40 mEq, 40 mEq, Oral, Daily OR potassium chloride 40 mEq in 0.9% sodium chloride 500 ml IVPB, 40 mEq, Intravenous, Daily, Isabel Tang CNP traMADol (ULTRAM) tablet 100 mg, 100 mg, Oral, Q4H PRN, Isabel Tang CNP, 100 mg at 03/18/23 0012 No Known Allergies Vitals: 03/17/23 1920 03/17/23200103/17/23 2331 03/18/23 0439 BP: 124/78 104/61 97/63 Pulse: 70 76 68 Resp: 17 18 17 Temp: 98.3 degrees F (36.8 degrees C) 97.9 degrees F (36.6 degrees C) 97.3 degrees F (36.3 degrees C) TempSrc: Oral Oral Oral SpO2: 97% 97% 92% 92% Weight: Height: Intake/Output Summary (Last 24 hours) at 03/18/2023 0736 Last data filed at 03/18/2023 0600 Gross per 24 hour Intake 1324 ml Output 1525 ml Net -201 ml Physical Exam: CONSTITUTIONAL: Alert and Oriented, in appearance with some noted wasting features, afebrile HEENT: Normocephalic and atraumatic, Sclera anicteric, PERRL, poor dentition CARDIAC: Normal rate, regular rhythm, normal heart sounds and intact distal pulses, no murmurs/rubs/clicks/gallops RESP: Effort normal. Few scattered rales, overall clear., RA GI: Soft. Bowel sounds are normal. Nontender. Nondistended. Obese : No Suprapubic tenderness EXTREMITES: No cyanosis, clubbing; bilateral lower extremity lymphedema. Has a wound on his left tibia area with blood underneath skin Right lower extremity plantar surface and medial area with a lesion that has been chronically present. Right lower extremity has cellulitis and an impetigo like rash dressed with ice pack in place DERM: Skin is warm and dry. MUSCULARSKELETAL: No septic arthritis noted NEUROLOGIC: Fatigued in appearance but answers questions appropriately LINES: All line sites are clear and without evidence of infection LAB RESULTS: WBC (WHITE BLOOD COUNT) Date/Time Value Ref Range Status 03/18/2023 04:47 AM 2.5 (L) 3.6 - 11.0 10*3/uL Final 03/17/2023 05:26 AM 2.2 (L) 3.6 - 11.0 10*3/uL Final 03/16/2023 05:53 PM 3.6 3.6 - 11.0 10*3/uL Final 03/03/2023 05:38 AM 2.8 (L) 3.6 - 11.0 10*3/uL Final 03/02/2023 05:57 AM 2.0 (L) 3.6 - 11.0 10*3/uL Final 03/01/2023 03:59 AM 2.0 (L) 3.6 - 11.0 10*3/uL Final 02/28/2023 04:47 AM 1.7 (LL) 3.6 - 11.0 10*3/uL Final Comment: CALLED TO AND READ BACK BY HARDY HUTCHINS RN AT 0523 [facility] HEMOGLOBIN (HGB) Date/Time Value Ref Range Status 03/18/2023 04:47 AM 9.9 (L) 14.0 - 18.0 G/DL Final 03/17/2023 05:26 AM 10.0 (L) 14.0 - 18.0 G/DL Final 03/16/2023 05:53 PM 10.5 (L) 14.0 - 18.0 G/DL Final 03/03/2023 05:38 AM 9.3 (L) 14.0 - 18.0 G/DL Final 03/02/2023 05:57 AM 8.7 (L) 14.0 - 18.0 G/DL Final 03/01/2023 03:59 AM 8.8 (L) 14.0 - 18.0 G/DL Final 02/28/2023 04:47 AM 9.4 (L) 14.0 - 18.0 G/DL Final HEMATOCRIT (HCT) Date/Time Value Ref Range Status 03/18/2023 04:47 AM 30.5 (L) 42.0 - 52.0 % Final 03/17/2023 05:26 AM 31.4 (L) 42.0 - 52.0 % Final 03/16/2023 05:53 PM 33.6 (L) 42.0 - 52.0 % Final 03/03/2023 05:38 AM 29.1 (L) 42.0 - 52.0 % Final 03/02/2023 05:57 AM 27.6 (L) 42.0 - 52.0 % Final 03/01/2023 03:59 AM 27.4 (L) 42.0 - 52.0 % Final 02/28/2023 04:47 AM 29.3 (L) 42.0 - 52.0 % Final PLATELET COUNT Date/Time Value Ref Range Status 03/18/2023 04:47 AM 81 (L) 130 - 400 10*3/uL Final 03/17/2023 05:26 AM 91 (L) 130 - 400 10*3/uL Final 03/16/2023 05:53 PM 106 (L) 130 - 400 10*3/uL Final 03/03/2023 05:38 AM 96 (L) 130 - 400 10*3/uL Final 03/02/2023 05:57 AM 93 (L) 130 - 400 10*3/uL Final 03/01/2023 03:59 AM 85 (L) 130 - 400 10*3/uL Final 02/28/2023 04:47 AM 91 (L) 130 - 400 10*3/uL Final POTASSIUM Date/Time Value Ref Range Status 03/18/2023 04:47 AM 4.0 3.5 - 5.1 MMOL/L Final 03/17/2023 05:26 AM 3.6 3.5 - 5.1 MMOL/L Final 03/16/2023 05:53 PM 3.5 3.5 - 5.1 MMOL/L Final 03/03/2023 05:38 AM 4.3 3.5 - 5.1 MMOL/L Final 03/02/2023 05:57 AM 4.1 3.5 - 5.1 MMOL/L Final 03/01/2023 03:59 AM 4.1 3.5 - 5.1 MMOL/L Final 02/28/2023 04:47 AM 3.7 3.5 - 5.1 MMOL/L Final CHLORIDE Date/Time Value Ref Range Status 03/18/2023 04:47 AM 97 (L) 98 - 107 MMOL/L Final Comment: Please note: Triglyceride levels of 600mg/dL or higher may positively bias chloride results by approximately 2.1 mmol 03/17/2023 05:26 AM 96 (L) 98 - 107 MMOL/L Final Comment: Please note: Triglyceride levels of 600mg/dL or higher may positively bias chloride results by approximately 2.1 mmol 03/16/2023 05:53 PM 96 (L) 98 - 107 MMOL/L Final Comment: Please note: Triglyceride levels of 600mg/dL or higher may positively bias chloride results by approximately 2.1 mmol 03/03/2023 05:38 AM 113 (H) 98 - 107 MMOL/L Final Comment: Please note: Triglyceride levels of 600mg/dL or higher may positively bias chloride results by approximately 2.1 mmol 03/02/2023 05:57 AM 114 (H) 98 - 107 MMOL/L Final Comment: Please note: Triglyceride levels of 600mg/dL or higher may positively bias chloride results by approximately 2.1 mmol 03/01/2023 03:59 AM 108 (H) 98 - 107 MMOL/L Final Comment: Please note: Triglyceride levels of 600mg/dL or higher may positively bias chloride results by approximately 2.1 mmol 02/28/2023 04:47 AM 107 98 - 107 MMOL/L Final Comment: Please note: Triglyceride levels of 600mg/dL or higher may positively bias chloride results by approximately 2.1 mmol CARBON DIOXIDE (CO2) Date/Time Value Ref Range Status 03/18/2023 04:47 AM 31 (H) 22 - 30 MMOL/L Final 03/17/2023 05:26 AM 32 (H) 22 - 30 MMOL/L Final 03/16/2023 05:53 PM 33 (H) 22 - 30 MMOL/L Final 03/03/2023 05:38 AM 25 22 - 30 MMOL/L Final 03/02/2023 05:57 AM 27 22 - 30 MMOL/L Final 03/01/2023 03:59 AM 25 22 - 30 MMOL/L Final 02/28/2023 04:47 AM 27 22 - 30 MMOL/L Final GLUCOSE, POINT OF CARE Date/Time Value Ref Range Status 11/13/2021 01:10 PM 111 (H) 70 - 100 MG/DL Final Glucose Date/Time Value Ref Range Status 03/18/2023 04:47 AM 97 70 - 100 MG/DL Final Comment: NORMAL <100 mg/dL PREDIABETES 101-126 mg/dL DIABETES 126 mg/dL or higher 03/17/2023 05:26 AM 90 70 - 100 MG/DL Final Comment: NORMAL <100 mg/dL PREDIABETES 101-126 mg/dL DIABETES 126 mg/dL or higher 03/16/2023 05:53 PM 116 (H) 70 - 100 MG/DL Final Comment: NORMAL <100 mg/dL PREDIABETES 101-126 mg/dL DIABETES 126 mg/dL or higher 03/03/2023 05:38 AM 93 70 - 100 MG/DL Final Comment: NORMAL <100 mg/dL PREDIABETES 101-126 mg/dL DIABETES 126 mg/dL or higher 03/02/2023 05:57 AM 87 70 - 100 MG/DL Final Comment: NORMAL <100 mg/dL PREDIABETES 101-126 mg/dL DIABETES 126 mg/dL or higher 03/01/2023 03:59 AM 116 (H) 70 - 100 MG/DL Final Comment: NORMAL <100 mg/dL PREDIABETES 101-126 mg/dL DIABETES 126 mg/dL or higher 02/28/2023 04:47 AM 152 (H) 70 - 100 MG/DL Final Comment: NORMAL <100 mg/dL PREDIABETES 101-126 mg/dL DIABETES 126 mg/dL or higher BUN Date/Time Value Ref Range Status 03/18/2023 04:47 AM 22 (H) 7 - 20 MG/DL Final 03/17/2023 05:26 AM 16 7 - 20 MG/DL Final 03/16/2023 05:53 PM 15 7 - 20 MG/DL Final 03/03/2023 05:38 AM 16 7 - 20 MG/DL Final 03/02/2023 05:57 AM 13 7 - 20 MG/DL Final 03/01/2023 03:59 AM 15 7 - 20 MG/DL Final 02/28/2023 04:47 AM 16 7 - 20 MG/DL Final CREATININE SERUM Date/Time Value Ref Range Status 03/18/2023 04:47 AM 0.70 0.7 - 1.2 MG/DL Final 03/17/2023 05:26 AM 0.50 (L) 0.7 - 1.2 MG/DL Final 03/16/2023 05:53 PM 0.59 (L) 0.70 - 1.20 MG/DL Final 03/03/2023 05:38 AM 0.50 (L) 0.7 - 1.2 MG/DL Final 03/02/2023 05:57 AM 0.50 (L) 0.7 - 1.2 MG/DL Final 03/01/2023 03:59 AM 0.49 (L) 0.7 - 1.2 MG/DL Final 02/28/2023 04:47 AM 0.51 (L) 0.7 - 1.2 MG/DL Final Albumin Date/Time Value Ref Range Status 03/18/2023 04:47 AM 2.9 (L) 3.5 - 5.0 G/dl Final 03/17/2023 05:26 AM 3.0 (L) 3.5 - 5.0 G/dl Final 03/16/2023 05:53 PM 3.6 3.5 - 5.0 G/dl Final 03/03/2023 05:38 AM 2.9 (L) 3.5 - 5.0 G/dl Final 03/02/2023 05:57 AM 2.6 (L) 3.5 - 5.0 G/dl Final 03/01/2023 03:59 AM 2.6 (L) 3.5 - 5.0 G/dl Final 02/28/2023 04:47 AM 2.7 (L) 3.5 - 5.0 G/dl Final CALCIUM Date/Time Value Ref Range Status 03/18/2023 04:47 AM 7.4 (L) 8.4 - 10.2 MG/DL Final 03/17/2023 05:26 AM 7.9 (L) 8.4 - 10.2 MG/DL Final 03/16/2023 05:53 PM 8.3 (L) 8.4 - 10.2 MG/DL Final 03/03/2023 05:38 AM 8.0 (L) 8.4 - 10.2 MG/DL Final 03/02/2023 05:57 AM 7.9 (L) 8.4 - 10.2 MG/DL Final 03/01/2023 03:59 AM 7.5 (L) 8.4 - 10.2 MG/DL Final 02/28/2023 04:47 AM 7.6 (L) 8.4 - 10.2 MG/DL Final ALKALINE PHOSPHATASE Date/Time Value Ref Range Status 03/16/2023 05:53 PM 53 38 - 126 IU/L Final 02/26/2023 09:32 PM 54 38 - 126 IU/L Final 02/04/2023 02:50 PM 67 38 - 126 IU/L Final 11/29/2022 01:39 PM 64 38 - 126 IU/L Final 10/27/2022 10:32 AM 66 38 - 126 IU/L Final 09/13/2022 11:05 AM 60 38 - 126 IU/L Final 03/07/2022 12:25 AM 45 38 - 126 IU/L Final AST Date/Time Value Ref Range Status 03/16/2023 05:53 PM 38 17 - 59 IU/L Final 02/26/2023 09:32 PM 26 17 - 59 IU/L Final 02/04/2023 02:50 PM 21 15 - 41 IU/L Final 11/29/2022 01:39 PM 25 15 - 41 IU/L Final 10/27/2022 10:32 AM 22 15 - 41 IU/L Final 09/13/2022 11:05 AM 25 15 - 41 IU/L Final 03/07/2022 12:25 AM 34 15 - 41 IU/L Final BILIRUBIN, TOTAL Date/Time Value Ref Range Status 03/16/2023 05:53 PM 1.6 (H) 0.2 - 1.3 MG/DL Final 02/28/2023 04:47 AM 0.7 Final Comment: Reference range: 0.0 to 1.2 Unit: mg/dL 02/26/2023 09:32 PM 1.1 0.2 - 1.3 MG/DL Final 02/04/2023 02:50 PM 1.1 0.2 - 1.2 MG/DL Final 11/29/2022 01:39 PM 0.9 0.2 - 1.2 MG/DL Final 10/27/2022 10:32 AM 1.5 (H) 0.2 - 1.2 MG/DL Final 09/13/2022 11:05 AM 1.3 (H) 0.2 - 1.2 MG/DL Final ALT Date/Time Value Ref Range Status 03/16/2023 05:53 PM 21 <50 IU/L Final 02/26/2023 09:32 PM 17 <50 IU/L Final 02/04/2023 02:50 PM 14 (L) 17 - 63 IU/L Final 11/29/2022 01:39 PM 14 (L) 17 - 63 IU/L Final 10/27/2022 10:32 AM 12 (L) 17 - 63 IU/L Final 09/13/2022 11:05 AM 13 (L) 17 - 63 IU/L Final 03/07/2022 12:25 AM 20 17 - 63 IU/L Final ESTIMATED GFR, NON AMER Date/Time Value Ref Range Status 03/18/2023 04:47 AM 124 ml/min/1.73sq.m Final 03/17/2023 05:26 AM 183 ml/min/1.73sq.m Final 03/16/2023 05:53 PM 151 ml/min/1.73sq.m Final 03/03/2023 05:38 AM 183 ml/min/1.73sq.m Final 03/02/2023 05:57 AM 183 ml/min/1.73sq.m Final 03/01/2023 03:59 AM 187 ml/min/1.73sq.m Final 02/28/2023 04:47 AM 179 ml/min/1.73sq.m Final ESTIMATED GFR, Date/Time Value Ref Range Status 03/18/2023 04:47 AM 150 ml/min/1.73sq.m Final 03/17/2023 05:26 AM 221 ml/min/1.73sq.m Final 03/16/2023 05:53 PM 183 ml/min/1.73sq.m Final 03/03/2023 05:38 AM 221 ml/min/1.73sq.m Final 03/02/2023 05:57 AM 221 ml/min/1.73sq.m Final 03/01/2023 03:59 AM 226 ml/min/1.73sq.m Final 02/28/2023 04:47 AM 216 ml/min/1.73sq.m Final GFR COMMENT Date/Time Value Ref Range Status 03/18/2023 04:47 AM Average GFR for 50-59 years old = 93. Final Comment: Chronic Kidney disease, GFR = <60. Kidney failure, GFR = <15. The GFR estimate is not adjusted for extreme body surface area or acute process, nor has it been validated for women or ethnic groups other than and . Testing performed at [place], [place] [address] CBC Lab Results Component Value Date WBC 2.5 (L) 03/18/2023 HGB 9.9 (L) 03/18/2023 HCT 30.5 (L) 03/18/2023 PLATELET 81 (L) 03/18/2023 MCV 71.1 (L) 03/18/2023 EDIF Lab Results Component Value Date RBCDISTRIBU 16.4 (H) 03/18/2023 EOSINOPHILS 10.6 03/17/2023 EOSINOPHILS 0.2 03/17/2023 BASOPHILS 0.8 03/17/2023 BASOPHILS 0.0 03/17/2023 LYMPHOCYTABS 0.7 (L) 03/17/2023 PLATELET 81 (L) 03/18/2023 MPV 8.3 03/18/2023 Lab Results Component Value Date SODIUM 134 (L) 03/18/2023 POTASSIUM 4.0 03/18/2023 CHLORIDE 97 (L) 03/18/2023 CO2 31 (H) 03/18/2023 BUN 22 (H) 03/18/2023 CREATSERUM 0.70 03/18/2023 GLUCOSE 97 03/18/2023 Micro Blood culture 03/17 pending Nares 03/16-, history of previous MSSA Left lower extremity wounds 03/11 with Enterococcus sensitive to ampicillin Enterococcus Faecalis Group D Ampicillin <=2 SUSCEPT... SS Gentamicin High Level RESISTANT R PENICILLIN G 2 SUSCEPTIBLE SS Streptomycin High Level SUSCEPTIBLE S Vancomycin 1 SUSCEPTIBLE SS Susceptibility Comments Enterococcus Faecalis Group D ENTEROCOCCUS FAECALIS GROUP D Specimen Collected: 03/11/23 12:23 Last Resulted: 03/14/23 11:24 Lab Flowsheet Order Details View Encounter Lab and Collection Details Routing Result History View All Conversations on this Encounter Result Care Coordination Patient Communication Add Comments Not seen Back to Top Result Report CULTURE WOUND (Order #[id number]) on 03/11/23 View [email or web address] Info CULTURE WOUND (Order #[id number]) on 03/11/23 CULTURE WOUND: Patient Communication Add Comments Not seen Collection Information Specimen ID: [id number] Swab LEG Collected: 03/11/2023 12:23 PM 200 Received: 03/11/2023 12:23 PM Resulting Agency: [facility] - [address] [place] [id number] Wound culture 02/27 with MSSA Staphylococcus aureus Clindamycin <=0.25 SUSC... SS Erythromycin >=8 RESISTANT R Gentamicin <=0.5 SUSCE... SS Inducible Clindamycin Resistance NEGATIVE S Levofloxacin 0.25 SUSCEP... SS Linezolid 2 SUSCEPTIBLE SS Oxacillin 0.5 SUSCEPT... SS PENICILLIN G >=0.5 RESIS... R Rifampin <=0.5 SUSCE... SS Tetracycline <=1 SUSCEPT... SS Trimethoprim/Sulfamethoxazol <=10 SUSCEP... SS Vancomycin <=0.5 SUSCE... SS No orders to display ASSESSMENT AND PLAN . Carmen Gilman 57 y.o. admitted for lower extremity wounds and worsening infections in the setting of a history of pancytopenia, end-stage liver disease and history of drug and alcohol use Left lower extremity laceration/wound infection -Traumatic injury on 02/25 -nares shows MSSA during early February admission, but follow up testing negative -Blood cultures 02/26 and 02/27 no growth -Wound culture 02/27 MSSA; MSSA is likely the main pathogen, also with a bacillus species on file which is likely more of a colonizer of the skin. -culture also showed Enterococcus on 03/19 but this is more likely a colonizer -ultrasound negative for DVT but does show some reactive inguinal lymph nodes -s/p cefepime and Vancomycin ended 03/03 and transitioned to oral Keflex 500 mg 4 times a day for 8 days, 03/03-03/11, then to cefadroxil, but he never picked up the medication -local wound care -no clear indications for surgical consult at this time Right lower extremity soft tissue infection -appearance is consistent with an impetigo like infection -check culture but most likely Staphylococcus or Streptococcus given appearance the patient is at risk for other organisms given his living situation and comorbidities -Unasyn 03/16-current -clindamycin 03/17-current, planned 48-72 hours and then discontinue -no evidence of sepsis with normal CRP and lactate levels -blood culture 03/18 pending -local dressings, wound care with elevation and fluid management -check culture if any drainage -improved erythema Hepatitis C - INR 1.16 mildly elevated, fibrosure 0.78 consistent with cirrhosis at initial eval, alpha-fetoprotein which was normal -NS5A genotype 3 resistance testing: negative -Hx of decompensated cirrhosis given varices noted. -S/p daily fixed dosing of sofosbuvir 400mg/velpatasvir 100mg (epclusa) x 24 weeks, 08/23/22-current x 24 weeks; completed treatment in early February -Plan SVR in 3 months Cirrhosis/esophageal varices -Patient has seen GI specialist -Testing including ISSAC, Anca, teddy, antimitochondrial antibody, EBV, CMV, ceruloplasmin were normal -EGD with varices, managed by GI -bilirubin increased to 1.6 Positive hepatitis B core antibody -Patient is surface antibody positive but surface antigen negative -Obtained hepatitis B DNA level 06/09 which was negative Drug use -Recommend ongoing cessation, recent positive cocaine test during admission in February -patient endorses using marijuana -recommend cessation of drug use and this was discussed -drug screen positive for cocaine metabolite, benzodiazepines and buprenorphine -may benefit from linkage to drug cessation program Health care maintenance -Patient is immune against hepatitis A and hepatitis B based on serologies -Recommend influenza, coronavirus, shingles, pneumococcal vaccinations but the patient has deferred previously History of alcohol abuse -Currently off of alcohol Pancytopenia -ongoing history of pancytopenia, likely due to underlying liver disease -patient seeing student services vice president Dr Dahl -Positive testing for positive platelet antibodies IIB/IIIA, possible ITP -Possible thalassemia, electrophoresis was not performed though according to lab review -White count 2.2, 2.5 -Hemoglobin 10, 9.9 -Platelets of 91, 81 -reticulocyte percentage 2.2, iron, ferritin, B12 and folate normal in past -patient seeing student services vice president Dr Dahl -Positive testing for positive platelet antibodies IIB/IIIA, possible ITPl Soluble transferrin elevated 27 Obesity -Patient with ongoing efforts to lose weight -BMI 31 Right lower extremity wound/feet& toe deformities -Patient saw podiatry Dr. Pelayo in [facility] and then to [facility] with Dr. Bryan; plan shave procedure once legs further healed noted -no Podiatry consult needs at this time, would recommend follow up as outpatient Incarceration history -Patient concerned that he may have been exposed to tuberculosis and TB testing was negative Hx of MSSA colonization -Positive 02/27 -Repeat testing negative 03/16 Lymphedema -Chronic swelling noted -Elevation and diuretics -history of Unna boot use, none current -Ultrasound without DVT but did show reactive adenopathy Mildly elevating Cr -Cr 0.5, 0.7 -Trends, adequate hydration COPD.RAD -inhalers Social situation -patient states he is a poor living condition and does not have the means to get his own place. Patient states he has been living in his vehicle likely contributing to increasing edema of his lower extremity and worsening wounds/infection -consider swing bed versus nursing facility at discharge and case management/social work given housing situation and drug use Dr. Nathan Hayden MD Pt seen for 1x wound consult. Lower legs edematous, RLE gaiter area seeping large amts serous drainage, lots of dried crusts scattered, base is pink and frail. Skin is stretched and thin. Right foot medial to plantar with wound being managed by Dr Bryan, measures 1.8x1x0 covered with black scab and peeling edges. Wound is raised. LLE with 2 old skin tears. Medial measures 5x5.4x0.2, dry red base, lower lateral portion of wound with black hematoma and swelling. To anterior leg is a smaller scabbed skin tear, dark red, dry. 0.5x0.5x0. clear fluid filled small blister to lateral. Scattered dry scabs. LLE - calf=39.5, ankle=34.9 RLE- calf=49, ankle=39 3+ pitting to legs and feet, PPPx2, feet and toes cool, cap refill 3 secs Recommendation: *to RLE apply generous amount of triamcinolone 0.1%, apply xeroform, ABD pads to gaiter area and wrap with kerlix. *To right foot wound paint with betadine and apply dry dressing. *LLE wound apply santyl, xeroform, dry dressing, apply triamcinolone to leg, then wrap with kerlix. *Change dressings daily. *Apply teddy wraps for compression from behind toes to the knees BLE and keep legs elevated if ok with hospitalist and/or Dr Hayden *Consult podiatry for foot *Consult general surgeon for hematoma on LLE- it may need debrided Thank you PT/ OT digna faxed with encryption to Gab[facility] at [facility]. 03/17/23 1436 Time In/Out Time In 1405 Time Out 1436 Total Visit Time 31 minutes Total Treatment Time (skilled, billable minutes) 29 minutes + 14 minutes from earlier encounter and interview with pt from [id number]. Split evaluation secondary to pt declining to finish evaluation during earlier encounter this AM. Initial Evaluation/Screen Completed? yes General Information Patient Safety Communication Prior to Visit Nursing OT Existing Precautions/Restrictions fall (pain; BLE cellulitis) Lines/Tubes/Drains (Rehab Status) Telemetry (IV) Home Setting Home Environment Details Pt reports that he was previously living friend, but reports that he had some safety concerns while living with his friend. He states his friend was going to "kick him out" so he moved out. Reports that he had been since living in his vehicle. Per pt, his friend only had a tub upstairs. States that was not able to negotiate a flight of stairs and was unable to safely transfer in/out of a tub. Reports has not had a shower in months. Has sponge bathed when able and have access to supplies. Previous Level of Function Prior level ADL Overview (Reports has had increased difficulty with LB self-care, but has not had assistance available. Per pt, has been completing as able on his own and has not recently worn socks/shoes. Has been wearing flip flops due to swelling and wounds.) Bed Mobility/Transfers needs device Ambulation Skills needs device Assistive Device quad cane (Has a straight cane, but states also has a quad cane and typically uses a quad cane for mobility. Per pt, also has a FWW that he uses at times.) Prior Level of Function Details Pt reports that prior to continued pain, edema, and BLE cellulitis/ wounds, he was completely independent. However, reports that with increased pain level and ongoing edema/ BLE cellulitis and wounds, he feels unable to care for himself. Presented to ED secondary to pain, current medical condition, and for placement. IADL History IADLs (Was previously driving prior to admission. However, reports has been recently living in his vehicle and without access to perform many IADLs in a home.) PRIOR LEVEL AM-PAC Activity Inpatient Short Form Putting on/Taking Off Lower Body Clothing 4 - No Assistance Bathing 4 - No Assistance Toileting 4 - No Assistance Putting on/Taking Off Upper Body Clothing 4 - No Assistance Grooming 4 - No Assistance Eating 4 - No Assistance PRIOR LEVEL AM-PAC Activity Raw Score 24 PRIOR LEVEL AM-PAC Activity Functional Limitation/Modifier 0.00% Prior Functional Impairment in Daily Activity General Pain Documentation (Adult, OB, Peds) Presence of Pain complains of pain/discomfort Pain Location leg, left;leg, right (R leg pain worse than L leg pain, per pt report) Pain Management Interventions pillow support;positioning (RN entered room to administer medication.) Select Pain Scale DVPRS (Defense and Veterans Pain Rating Scale) (Adult-Cognitively Intact) DVPRS (Defense and Veterans Pain Rating Scale) DVPRS: Rest 8- severe pain DVPRS: Activity 8- severe pain Cognition Arousal/Alertness Appropriate responses to stimuli Orientation Level Oriented X4; slight agitation intermittently Following Commands (Able to follow multi-step commands) Safety Judgment Decreased awareness of need for assistance;Decreased awareness of need for safety (Reluctant to use walker despite education on need to use walker for safety to transfer to the bedside chair.) Deficits Decreased awareness of deficits Attention Span Attends with cues to redirect (Diversional activities secondary to pt initial focus on pain and receiving pain medication. 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 PLANNER, RN, and physician are all aware and nurse entered room to relay that he is still undergoing further medical work up and she will administer as ordered.) Problem Solving Assistance required to identify errors made Vision Screen Currently wearing corrective lenses No Speech Speech slurred speech (Pt presented with garbled speech earlier this date, that was somewhat more comprehensible this afternoon.) Successful Methods (Communication Strategies) verbal speech Hearing Hearing no gross deficits noted Sensation Overall Sensation Intact Sensation Comments Denies numbness/tingling RUE Assessment RUE Assessment (Pt limited shouler AROM to 90 degrees secondary to IV placement and discomfort (nsg aware). At least grade 3/5 strength noted functionally. Pt declined further testing on RUE. Weak gross grasp with chronic impairment with R hand from a prior injury.) LUE Assessment LUE Assessment PROM Impaired;AROM Impaired;Strength Impaired;Tone WFL Left UE Assessment Details Tolerated PROM L shoulder flexion to ~90 degrees with empty end feel secondary to pt shoulder discomfort/pain. Has a remote L rotator cuff tear according to pt from ~20 years ago. Active L shoulder flexion to ~45 degrees. Initial attempt at scaption to compensate for motion. Distal UE ROM elbow/forearm intact. Weak to moderate gross hand strength. Skin Integrity Skin Integrity Description Blister;Bruising;Redness;Swelling ;Tear (BLEs; no weeping of wounds noted) Edema Edema present Location BLEs, with RLE edema > LLE edema Supine to Sit Mobility Boutte Level: Supine->Sit stand-by assist Physical Assist: Supine->Sit (1 person assist) Bed Features/Set-up: Supine->Sit Head of bed elevated Sit to Stand Transfer Boutte Level: Sit->Stand moderate assist (50% patient effort) Physical Assist: Sit->Stand 2 person assist Assistive Device: Sit->Stand gait belt;2 wheeled walker Skilled Intervention/Details: Sit->Stand Cues for pt incorporation of walker. Pt initially refusing to hold onto walker requiring mod A x 2 to facilitate transition to standing and full upright positioning. Pt with decreased safety awareness and states does not need walker. With further observation, pt noted to have a cane of chewing tobacco in his R hand. His nurse Mariella was presen and aware. Pt appeared to attempt to hide can prior to therapists and nurse viewing contents he was holding. Pt then agreeable to place hand on walker, requiring less physical assistance. Stand to Sit Transfer Boutte Level: Stand->Sit contact guard assist Assistive Device: Stand->Sit gait belt;2 wheeled walker Skilled Rationale Positioning;Sequencing;Hand placement;Verbal cues;Cues for increased safety Functional Mobility Boutte Level: Functional Mobility/Gait minimum assist (75% patient effort) (x 1 + SBA-CGA x 2nd helper) Physical Assist: Functional Mobility/Gait 2 person assist Assistive Device: Functional Mobility/Gait 2 wheeled walker;gait belt Functional Mobility Distance Distance needed to access BSC/chair Skilled Intervention/Details - Functional Mobility/Gait Pt tranfserred from EOB to recliner in order to elevate BLEs with education on increased edema/pain with BLEs in dependent position while dangling legs on EOB. Pt agreeable to transfer to recliner with encouragement. Gross Coordination Gross Coordination (LUE WFL within ROM limitations. GMC appeared WFL functionally during activity/movement, as pt declined formal testing due to IV discomfort as previously noted.) Fine Motor Coordination Additional Documentation (chronic impairment with R) ADL Overview ADL Assessment UE Dressing Deficit;LE Dressing Deficit ADL Anticipated Performance (ADLs not directly observed this session) Bathing;Toileting UE Dressing UE Dressing Location edge of bed UE Dressing Deficit Activity tolerance;Pain;Ties;SOB (SBA for sitting balance) LE Dressing LE Dressing Assistance Total LE Dressing Deficit Activity tolerance;SOB;Pain;Balance;Don/do ff R sock;Don/doff L sock CURRENT AM-PAC Daily Activity Inpatient Short Form Putting on/Taking Off Lower Body Clothing 2 - A Lot of Assistance Bathing 2 - A Lot of Assistance Toileting 2 - A Lot of Assistance Putting on/Taking Off Upper Body Clothing 3 - A Little Assistance Grooming 3 - A Little Assistance Eating 4 - No Assistance CURRENT AM-PAC Activity Raw Score 16 CURRENT AM-PAC Activity Functional Limitation/Modifier 53.32% Currently Impaired in Daily Activity - CK Assessment Narrative Assessment Presents with multiple co-morbidities including BLE edema, pain, and cellulitis, balance deficits, decreased UE ROM/strength with history of chronic impairments as well, decreased safety awareness, and slight agitation, which are barriers to pt's occupational performance with ADLs and functional mobility. He will benefit from OT to address his deficits/ functional limitations to maximize his safety and independence with self-care and functional mobility. Clinical Impression Continue care plan yes Co-evaluation/co-treatment performed? Yes, simultaneous billable skilled care (This co-evaluation session performed between PT and OT was beneficial, necessary and provided distinct services in establishing this person's individual plan of care. Medical complexity with functional deficits necessitated two skilled therapy disciplines working concurrently to determine each discipline's goals. This co-treatment was medically necessary due to patient's: Decreased activity tolerance and severe pain level requiring assist x 2 for safety) Patient Instruction Purpose and goals of OT discussed with pt. Pt educated on purpose of encounter. Performance Deficits (Impairments) Found balance;edema;endurance;joint integrity and mobility;pain;pain with movement;ROM;strength;transfers (SOB with exertion) Global Functional Limitations bathing;dressing;grooming;toileti ng;functional mobility;ADL transfers;community integration;leisure integration;relaxation training Barriers to Treatment (Co-morbidities and/or personal factors) Pain; agitation; possible self-limiting behaviors Rehab Potential (OT Eval) good, to achieve stated therapy goals Therapy Frequency 5 times a week Planned Therapy Interventions (OT Eval) ADL retraining;balance training;bed mobility training;functional activity tolerance;ROM (range of motion);strengthening;transfer training Discharge Destination Recommendation [facility] Facility Barriers to discharge home Patient needs assistance with functional mobility;Patient needs assistance with ADLs;Pain management concerns;Unsafe home environment given patient's current status (see note below) Evaluation Complexity Occupational Profile and Client History High - extensive history HPI: Presented to ED due to BLE edema and redness with drainage. Followed by Dr. Hayden, Also with SOB and increasing fluid retention. US doppler was negative for DVT. Was admitted for further evaluation and treatment of LE cellulitis. Past Medical History: Diagnosis Date Asthma Essential hypertension, benign MRSA (methicillin resistant staph aureus) culture positive rt. lower posteria leg Past Surgical History: Procedure Laterality Date APPENDECTOMY BACK SURGERY FOOT SURGERY Assessment of Occupational Performance High (5 or more performance deficits) Clinical Decision/Performance Deficits High (comprehensive assessments w/multiple treatment options) Plan Plan for next session ADL training Pt initially agitated with not yet having received pain medication. Upon return, pt more agreeable for participation including up to recliner for improved positioning and comfort. Seated in recliner with pillows placed. Chair alarm activated with green light flashing. Call light and personal items placed in reach. Pt will complete UB self-care with set up/supervision. Pt will complete LB self-care with min A. Pt will complete toileting tasks with SBA-CGA. Pt will perform ADL transfers with SBA-CGA with use of LRAD with minimal to no cueing for safety. Pt will tolerate 15 minutes of light functional activities to enable improved tolerance for ADLs. ROSA Cosby, OTR/L 03/17/2023 03/17/23 1407 Time In/Out Time In 1407 Time Out 1436 Total Visit Time 29 minutes Total Treatment Time (skilled, billable minutes) 29 minutes Initial Evaluation/Screen Completed? yes PT Evaluation and Treatment Time PT Evaluation (High) Time Entry 29 General Information Patient Safety Communication Prior to Visit Nursing (RN present intermittently throughout evaluation) Existing Precautions/Restrictions fall Home Setting Mobility Equipment Available 2 wheeled walker;quad cane Home Environment Details Pt reports recently living in his car due to safety concerns at friends house he was living in. lead supply worker aware of situation. Previous Level of Function Ambulation Skills independent Assistive Device quad cane;2 wheeled walker Prior Level of Function Details Pt reports he has not been able to take a shower in ~ 6 months. Has utilized quad cane vs FWW with short gait distances as able. PRIOR LEVEL AM-PAC Basic Mobility Inpatient Short Form Turning over in bed 4 - No Assistance Sitting/standing from chair 4 - No Assistance Moving from lying on back to sitting 4 - No Assistance Moving to and from bed to chair 4 - No Assistance Walk in hospital room 4 - No Assistance Climbing 3-5 steps with a railing 4 - No Assistance PRIOR LEVEL AM-PAC Mobility Raw Score 24 PRIOR LEVEL AM-PAC Mobility Functional Limitation/Modifier 0.00% Prior Functional Impairment in Basic Mobility General Pain Documentation (Adult, OB, Peds) Presence of Pain complains of pain/discomfort Pain Location leg, right;leg, left Select Pain Scale DVPRS (Defense and Veterans Pain Rating Scale) (Adult-Cognitively Intact) DVPRS (Defense and Veterans Pain Rating Scale) DVPRS: Rest 8- severe pain DVPRS: Activity 8- severe pain Cognition Overall Cognitive Status WFL Arousal/Alertness Appropriate responses to stimuli Orientation Level Oriented X4 Following Commands Follows one step commands without difficulty Safety Judgment Decreased awareness of need for assistance;Decreased awareness of need for safety Cognition Comments intermittently agitated Speech Speech (difficult to understand at times with dysarthria) Successful Methods (Communication Strategies) verbal speech Hearing Hearing no gross deficits noted RLE Assessment RLE Assessment Strength Impaired (AROM within limits of body habitus) Right LE Assessment Details at least 3/5 as indicated by functional mobilty and ROM assessment; unable to formally test second to wounds on legs with pain to palpation LLE Assessment LLE Assessment Strength Impaired (AROM within limits of body habitus) Left LE Assessment Details at least 3/5 as indicated by functional mobilty and ROM assessment; unable to formally test second to wounds on legs with pain to palpation Sensation Overall Sensation Intact Sensation Comments light touch in tact; denies n/t Skin Integrity Skin Integrity Description Swelling;Weeping;Blister;Bruising ;Redness (scattered wounds throughout BLE) Edema Edema pitting;present Sitting Balance Static Sitting-Level of Assistance Standby Dynamic Sitting-Level of Assistance Standby to CGA Standing Balance Static Standing-Level of Assistance (Min-CGA x 2) Dynamic Standing-Level of Assistance (Min-CGA x 2) Standing-Balance Support Gait belt;2 wheeled walker Skilled Rationale Positioning;Hand placement;Verbal cues;Full extension to upright positioning/posture;Cues for increased safety Standing Balance Skilled Intervention/Details pt initially refusing to utilize walker upon standing despite safety concerns and retro lean; noted pt attempting to conceal chewing tobacco within R hand casing cooker. Pt receptive to hand placement on walker with hand over hand assist for safety Supine to Sit Mobility [place] Level: Supine->Sit stand-by assist Physical Assist: Supine->Sit 1 person + 1 person to manage equipment Bed Features/Set-up: Supine->Sit Head of bed elevated (slightly) Sit to Stand Transfer [place] Level: Sit->Stand (Mod A x 2) Assistive Device: Sit->Stand gait belt;2 wheeled walker Skilled Rationale Positioning;Verbal cues;Hand placement;Full extension to upright positioning/posture;Finding/maint aining midline positioning;Cues for increased safety Stand to Sit Transfer [place] Level: Stand->Sit contact guard assist Physical Assist: Stand->Sit 2 person assist Assistive Device: Stand->Sit gait belt;2 wheeled walker;armed chair Skilled Rationale Positioning;Verbal cues;Hand placement;Controlled descent for sitting Bed-Chair Transfer [place] Level: Bed<->Chair (Mod A x 2 for initial stand; transfer improved to Min-CGA x 2 for remainder of transfer.) Physical Assist: Bed<->Chair 2 person assist Assistive Device: Bed<->Chair gait belt;2 wheeled walker;armed chair Skilled Rationale Positioning;Hand placement;Verbal cues;Full extension to upright positioning/posture Gait Assessment Skilled Intervention/Details - Gait refused gait beyond transfer to chair CURRENT [facility] Basic Mobility Inpatient Short Form Turning over in bed 4 - No Assistance Sitting/standing from chair 2 - A Lot of Assistance Moving from lying on back to sitting 4 - No Assistance Moving to and from bed to chair 2 - A Lot of Assistance Walk in hospital room 2 - A Lot of Assistance Climbing 3-5 steps with a railing 1 - Total Assistance CURRENT [facility] Mobility Raw Score 15 CURRENT [facility] Mobility Functional Limitation/Modifier 57.70% Currently Impaired in Basic Mobility - CK Clinical Impression Continue care plan yes Co-evaluation/co-treatment performed? Yes, simultaneous billable skilled care (This co-evaluation session performed between PT and OT was beneficial, necessary and provided distinct services in establishing this person's individual plan of care. Medical complexity with functional deficits necessitated two skilled therapy disciplines working concurrently to determine each discipline's goals. This co-treatment was medically necessary due to patient's: agitation, poor activity tolerance, severe pain, impaired balance, postural control/positioning impairments and functional mobility concerns) Criteria for Skilled Therapeutic Interventions Met (PT Eval) yes, treatment indicated Impairments Found (PT Eval) Strength;Balance;Pain;Posture;Tra nsfers;Gait/Locomotion;Edema;Skin integrity;Aerobic capacity/endurance;Cognition/Arou qing/Attention Global Functional Limitations Decreased ambulation distance/endurance;Ambulation/loc omotion pain;Increased fall risk;Difficulty stair climbing/descent;Community integration difficulties;Difficulty completing self-care activities (grooming, dressing, and/or feeding);Difficulty ambulating on uneven/dynamic surfaces;Difficulty getting off the floor;Difficulty with bed mobility;Difficulty with transfers;Decreased functional mobility;Reaching difficulty;Difficulty carrying/lifting objects;Limited ability to complete light out examiner/maintenance;Limited standing tolerance Barriers to Treatment (Co-Morbidities and/or Personal Factors) patient agitation, anemia, BLE cellulits Rehab Potential (PT Eval) good Therapy Frequency 6 times a week (1-2x/day as tolerated) Planned Therapy Interventions balance training;bed mobility training;endurance;functional activity tolerance;gait training;postural re-education;ROM;strengthening;tr ansfer training;stretching;wheelchair management/propulsion training;edema control Discharge Destination Recommendation [facility] Facility Barriers to discharge home Patient needs assistance with functional mobility;Pain management concerns;Lack of supervision necessary to mitigate fall risk;Unsafe home environment given patient's current status (see note below) Anticipated Equipment Needs at Discharge (PT Eval) to be determined Eval Complexity Assessment History Components High (3 personal factors and/or comorbidities) Examination of Body System(s) Components High (Addressing a total of 4 or more elements) Clinical Presentation Unstable - unstable and unpredictable characteristics - safety risk (High) Clinical Decision Making (complexity) High Plan Plan for next session progress gait distance as tolerated Past Medical History: Diagnosis Date Asthma Essential hypertension, benign MRSA (methicillin resistant staph aureus) culture positive rt. lower posteria leg Past Surgical History: Procedure Laterality Date APPENDECTOMY BACK SURGERY FOOT SURGERY PT assessment: Pt is a 57 yo male presenting to [facility] with BLE edema. PT evaluation completed as co-evaluation with OT due to pt's limited activity tolerance given severe pain level and agitation. Nursing present during mobility assessment. Pt attempting to conceal chew tobacco can in R hand initially, and refusing to utilize walker in attempt not to reveal can. With poor standing balance and increase in pain upon standing, assisted pt's hand to walker and noted can of chew in pts hand, nursing present and aware. Assisted pt to recliner chair with BLE elevated on pillows, all needs in reach, vitals maintained WFL. Pt presents with BLE edema, pain and skin integrity deficits in addition to impaired balance, limited strength, and poor activity tolerance with intermittent agitation. He will benefit from acute skilled PT services to address the above listed deficits and maximize safety with mobility in preparation for next level of care. PT Goals: Patient will demonstrate bed mobility with independence to maximize independence and minimize caregiver burden for discharge home/ the next level of care. Patient will perform transfers with FWW and SBA to minimize risk of falling and maximize independence for return to home/advancing to the next level of care. Patient will ambulate at least 30' with FWW and SBA for household/short community distance and to promote independence for return to home/the next level of care. Patient will perform written HEP with independence in order to continue the gains of the physical therapy program this stay. Patient will participate in 2 minutes of dynamic standing/sitting balance activities with 1 to no UE support and SBA to decrease fall risk at discharge. Kayla Atwood PT, DPT 03/17/2023 Initial referral information faxed with encryption to Gaby at [facility]. Will send PT/ OT evals when available. Spoke with Daria at [facility]. They are no longer providing home health services as patient requested discharge on 03/15/23. Summary: RD Progress Note INITIAL INPATIENT NUTRITION ASSESSMENT Mr. Carmen Gilman is a 57 y.o. male was admitted to [facility] for: No diagnosis found. Nutrition Assessment Subjective assessment / comments: Met with pt in his room. Pt was almost finished with his breakfast when RD came in. Pt has very poor dentition, but reports no issues with chewing/swallowing. His BLE were exposed to air and they were edematous with ulcers. Pt reports a very good appetite. He reports lots of pain in his legs. No c/o n/v/d/c. Pt is agreeable to ONS for protein supplementation to promote wound healing and d/t does not eat well outside of facility. Pt lives in his car, per notes, and relies on the food bank. Pt is not triggering for significant wt change, but wt is undoubtedly up d/t swelling in BLE. RD recommends to liberalize diet per pt to have more preference foods, and Ensure Max BID to provide 300 kcal and 60g pro to supplement for wound healing. Will continue to observe. Malnutrition Screening Tool: Nutrition Risk Screening (MST) Have you recently lost weight without trying?: 4- Greater than 33 lb Have you been eating poorly because of decreased appetite?: 1- Yes Malnutrition Screening Tool Score: 5 Nutrition: 3-->adequate Patient Reported Diet: general Current Appetite: good Access to Food: no Nutrition Support: none History of Eating Disorder: none Anthropometrics: Ht Readings from Last 1 Encounters: 03/17/23 1.829 m (6' 0.01") Wt Readings from Last 15 Encounters: 03/16/23 104.3 kg (230 lb) 03/16/23 99.8 kg (220 lb) 03/11/23 101.1 kg (222 lb 12.8 oz) 02/27/23 105.3 kg (232 lb 3.2 oz) 02/08/23 103 kg (227 lb 1.2 oz) 02/08/23 103 kg (227 lb) 01/26/23 100.2 kg (221 lb) 12/08/22 105.3 kg (232 lb 3.2 oz) 12/07/22 103 kg (227 lb) 11/25/22 107.5 kg (237 lb) 11/24/22 107.5 kg (237 lb) 11/03/22 106 kg (233 lb 9.6 oz) 10/27/22 104.6 kg (230 lb 11.2 oz) 10/21/22 101.6 kg (224 lb) 09/29/22 101.7 kg (224 lb 3.2 oz) Cliff body weight: 77.6 kg (171 lb 1.9 oz) Adjusted ideal body weight: 88.3 kg (194 lb 10.7 oz) Body mass index is 31.19 kg/m . Classified as: Class I Obesity Recent weight loss: No Intake Evaluation: EER: Calories: 0678-0724 kcal (25-30 kcal/kg AdjBW) Protein: 105-130 g (1.2-1.5 g/kg AdjBW) Fluid: 1mL/kcal or per provider choice Current Intakes: No meals documented thus far in flowsheets RD requesting that nursing documented all I/O in flowsheets per hospital policy: "Intake & Output (No Intravenous Volume)" under "Intake" Fluid Assessment: Net IO Since Admission: 600 mL [03/17/23 0922] 1 L fluid = 1 kg body weight Current Diet Orders Procedures DIET HEART HEALTHY - 4 GM SODIUM Standing Status: Standing Number of Occurrences: 1 No Known Allergies Nutrition Related Laboratory Values: Lab Results Component Value Date GLUCOSE 90 03/17/2023 GLUCOSE 116 (H) 03/16/2023 GLUCOSE 93 03/03/2023 HGBA1C 4.8 02/27/2023 SODIUM 133 (L) 03/17/2023 POTASSIUM 3.6 03/17/2023 MAGNESIUM 1.7 03/17/2023 PHOSPHORUS 4.4 03/17/2023 CALCIUM 7.9 (L) 03/17/2023 ALBUMIN 3.0 (L) 03/17/2023 TP 8.1 03/16/2023 BUN 16 03/17/2023 CREATSERUM 0.50 (L) 03/17/2023 AST 38 03/16/2023 ALT 21 03/16/2023 CRP 5.5 03/16/2023 HGB 10.0 (L) 03/17/2023 HCT 31.4 (L) 03/17/2023 IRON 75 03/02/2023 WBC 2.2 (L) 03/17/2023 RBC 4.41 03/17/2023 B12 327 03/02/2023 FOLATE 6.7 03/02/2023 CHOLESTEROL 114 02/07/2018 TRIG 85 02/07/2018 HDL 32 (L) 02/07/2018 LDLCALC 65 02/07/2018 PMH & PSH: Past Medical History: Diagnosis Date Asthma Essential hypertension, benign MRSA (methicillin resistant staph aureus) culture positive rt. lower posteria leg Past Surgical History: Procedure Laterality Date APPENDECTOMY BACK SURGERY FOOT SURGERY Nutrition Diagnosis NI-5.1 Increased nutrient needs (specify: pro, kcal) related to wound healing as evidenced by failing outpatient tx for ulcers and cellulitis of BLE. Interventions Oral Nutrition Supplements: Ensure Max BID Diet Order: Regular Encourage good po intakes, small/frequent meals and snacks as tolerated Monitoring and Evaluation Monitor patient weight, labs, and PO intake (to be documented in flowsheets by nursing per hospital policy) o Daily weights at 0400 by nursing o I/O documentation of all meals, fluids, and ONS by nursing in flowsheets: "Intake & Output (No Intravenous Volume) --> Intake" o Document if meal is refused of if patient only took a few bites Meet estimated energy needs through PO intakes or alternative means of nutrition Maintain CBW & prevent weight loss Preserve lean body mass Prevent nutritional deficiencies Maintain electrolyte and fluid balance Patient at moderate nutritional risk. Reassess two times per week. Available by consult. ANETTE Huff Registered Dietitian, Licensed Dietitian 03/17/23 Referral received. Chart reviewed. Met with patient to complete readmission assessment. Patient lethargic and difficult to understand, so assessment deferred. Patient reports he is currently living in his vehicle and states will need placement at discharge. His first choice is [facility] and his second choice is [facility]. He begins talking about being in pain and is requesting IV pain medication. Unable to understand anything else patient is attempting to say. Called and spoke with Gaby Laguerre in admissions at [facility]. She is requesting referral information be emailed to her at [email or web address]. Will email referral when needed documentation is available. Will continue to follow. documented in this encounter [facility] 03-22-2023 Progress note Formatting of t his note might be different from the original. Multiple attempts this morning for PT tx, pt declined with reasons being awaiting breakfast and had just received pain medication. Then, just finished OT and wished to eat ice cream. No PT tx rendered [facility] 03-22-2023 Progress note Formatting of t his note might be different from the original. Approached pt for OT treatment but pt currently eating breakfast at this time. Will follow up for OT treatment as pt is available and appropriate. ROSA Moreno, OTR/L 03/22/2023 [facility] 03-21-2023 Nurse Note Assessment unchanged from previous unless otherwise noted. [facility] 03-21-2023 Progress note Formatting of t his note might be different from the original. Patient being assisted back to bed by staff upon PT arrival. States he has been up in chair and requests to rest at this time. Will follow. [facility] 03-21-2023 Hospital Discharge instructions Isabel Tang CNP - 03/21/2023 1:43 PM EDT Unas[facility] IV per DR Hayden at [place] The following attachments cannot be sent through Care Everywhere.Pain and Pain Control ([facility]) ([place])documented in this encounter [facility] 03-21-2023 Nurse Note Assessment unchanged from previous unless otherwise noted. [facility] 03-21-2023 Procedure note Associated Ord er(s): PICC LINE PLACEMENT/REMOVAL; PICC LINE PLACEMENT/REMOVAL I have discussed the following issues with the ordering Clinician: Dr. Hayden Procedure explained to patient. Anatomical distortion to interfere with placement:no known restriction Arm preference for venous access: Left Arm Patient is alert, cooperative, no distress, appears stated age Patient Teaching: Yes Family Teaching: No [place] Protocol/Time Out Completed under Procedure Documentation PROCEDURE DETAILS: Midline Insertion Procedure Veins evaluated with ultrasound and appropriate vein selected. 1% Lidocaine used to anesthetize insertion site. Using standard sterile technique access was obtained. 3 Tun[place]ian, single lumen Midline placed in L Cephalic vein. Good blood return noted, catheter flushed easily with 10mls 0.9 NS per lumen. Statlock device used to secure Midline. Dressing applied. Pt denies pain at insertion site Patient tolerated procedure fairly well without any complications. Pt c/o pain from holding arm in same position. Education: Patient/Family informed to notify nurse of any complications including pain, redness, swelling, or leakage post insertion. Before the procedure, did the clinician 1. Document informed consent. not applicable 2. Perform timeout. Yes 3. Belt Maker: If enter sterile field, uses sterile gown and gloves, cap, mask/eye protection. N/A 4. Prep site with ChloraPrep for 30 sec minimum (if femoral 120 sec minimum). Yes 5. Sterile technique to drape patient from head to toe. Yes During the procedure, did the clinician 1. Maintain a sterile field. Yes 2. Obtain a qualified hook and eye machine operator IF 3 unsuccessful sticks. (except if emergent); document the number of attempts. N/A 3. Change gloves: if a catheter was exchanged over a guide wire before handling the new sterile catheter. N/A 4. Account for the guidewire at all times. Yes After the procedure, did the clinician 1. Apply a sterile dressing immediately after insertion. Yes 2. Document date and time on the dressing. Yes 3. Perform hand hygiene. Yes 4. All staff wore a mask until sterile dressing placed. Yes 5. Dispose sharps immediately after the procedure. Yes 6. Count all sharps and be accountable for both wires. Name of staff member that counted wires and sharps : KELLY Price. [X] Call light in reach. [X] Bed low and locked. [X] Tray table within reach. Lot number: [id number] Expiration Date: 2023-10-20 Arm circumference: 29 cm Internal length: 11 cm External length: [address] [facility] 03-21-2023 Procedure note Associated Ord er(s): PICC LINE PLACEMENT/REMOVAL; PICC LINE PLACEMENT/REMOVAL I have discussed the following issues with the ordering Clinician: Dr. Hayden Procedure explained to patient. Anatomical distortion to interfere with placement:no known restriction Arm preference for venous access: Left Arm Patient is alert, cooperative, no distress, appears stated age Patient Teaching: Yes Family Teaching: No [place] Protocol/Time Out Completed under Procedure Documentation PROCEDURE DETAILS: Midline Insertion Procedure Veins evaluated with ultrasound and appropriate vein selected. 1% Lidocaine used to anesthetize insertion site. Using standard sterile technique access was obtained. 3 [place]ian, single lumen Midline placed in L Cephalic vein. Good blood return noted, catheter flushed easily with 10mls 0.9 NS per lumen. Statlock device used to secure Midline. Dressing applied. Pt denies pain at insertion site Patient tolerated procedure fairly well without any complications. Pt c/o pain from holding arm in same position. Education: Patient/Family informed to notify nurse of any complications including pain, redness, swelling, or leakage post insertion. Before the procedure, did the clinician 1. Document informed consent. not applicable 2. Perform timeout. Yes 3. Belt Maker: If enter sterile field, uses sterile gown and gloves, cap, mask/eye protection. N/A 4. Prep site with ChloraPrep for 30 sec minimum (if femoral 120 sec minimum). Yes 5. Sterile technique to drape patient from head to toe. Yes During the procedure, did the clinician 1. Maintain a sterile field. Yes 2. Obtain a qualified hook and eye machine operator IF 3 unsuccessful sticks. (except if emergent); document the number of attempts. N/A 3. Change gloves: if a catheter was exchanged over a guide wire before handling the new sterile catheter. N/A 4. Account for the guidewire at all times. Yes After the procedure, did the clinician 1. Apply a sterile dressing immediately after insertion. Yes 2. Document date and time on the dressing. Yes 3. Perform hand hygiene. Yes 4. All staff wore a mask until sterile dressing placed. Yes 5. Dispose sharps immediately after the procedure. Yes 6. Count all sharps and be accountable for both wires. Name of staff member that counted wires and sharps : KELLY Price. [X] Call light in reach. [X] Bed low and locked. [X] Tray table within reach. Lot number: [id number] Expiration Date: 2023-10-20 Arm circumference: 29 cm Internal length: 11 cm External length: 0 cm documented in this encounter [facility] 03-21-2023 Plan of care note Problem: Skin Integrity Impairment, Risk/Actual (Adult) Goal: Identify Related Risk Factors and Signs and Symptoms Description: Related risk factors and signs and symptoms are identified upon initiation of Human Response Clinical Practice Guideline (CPG) Outcome: Ongoing Flowsheets (Taken 03/18/2023 0446) Related Risk Factors (Skin Integrity Impairment, Risk/Actual): edema skin disorders infection/disease process moisture Signs and Symptoms (Skin Integrity Impairment): edema inflammation Goal: Skin Integrity/Wound Healing Description: Patient will demonstrate the desired outcomes by discharge/transition of care. Outcome: Ongoing Flowsheets (Taken 03/18/2023 044) Skin Integrity/Wound Healing: making progress toward outcome Note: ID and wound cs Dressing changed daily ATB Problem: Patient Care Overview Goal: Plan of Care Review Outcome: Ongoing Flowsheets (Taken 03/20/2023 0430 by Gurinder Holt RN) Plan Of Care Reviewed With: patient Problem: Pain, Acute (Adult) Goal: Identify Related Risk Factors and Signs and Symptoms Description: Related risk factors and signs and symptoms are identified upon initiation of Human Response Clinical Practice Guideline (CPG) Outcome: Ongoing Goal: Acceptable Pain Control/Comfort Level Description: Patient will demonstrate the desired outcomes by discharge/transition of care. Outcome: Ongoing Problem: Mobility, Physical Impaired (Adult) Goal: Enhanced Mobility Skills Description: Patient will demonstrate the desired outcomes by discharge/transition of care. Patient will demonstrate bed mobility with independence to maximize independence and minimize caregiver burden for discharge home/ the next level of care. Patient will perform transfers with FWW and SBA to minimize risk of falling and maximize independence for return to home/advancing to the next level of care. Patient will ambulate at least 30' with FWW and SBA for household/short community distance and to promote independence for return to home/the next level of care. Patient will perform written HEP with independence in order to continue the gains of the physical therapy program this stay. Patient will participate in 2 minutes of dynamic standing/sitting balance activities with 1 to no UE support and SBA to decrease fall risk at discharge. Outcome: Ongoing Flowsheets (Taken 03/18/2023 0446) Enhanced Mobility Skills: making progress toward outcome Problem: Skin Integrity Impairment, Risk/Actual (Adult) Intervention: Promote Skin Healing Flowsheets (Taken 03/18/[id number] by Brody Landrum RN) Skin Protection: transparent dressing maintained Intervention: Promote/Optimize Nutrition Flowsheets (Taken 03/18/2023 0446) Oral Nutrition Promotion: physical activity promoted rest periods promoted safe use of adaptive equipment encouraged Intervention: Prevent/Manage Excess Moisture Flowsheets Taken 03/20/20232043 by Angela Sharp Hygiene Care: patient refused Perineal Care: (Patient refused at this time.) other (see comments) Taken 03/18/20232152 by Brody Landrum RN Skin Protection: transparent dressing maintained Intervention: Prevent/Minimize Sheer/Friction Injuries Flowsheets Taken 03/21/2023 0051 by Heaven Shannon RN Positioning/Transfer Devices: pillows Taken 03/19/20231946 by Gurinder Holt RN Pressure Reduction Techniques: frequent weight shift encouraged Pressure Reduction Devices: pressure-redistributing mattress utilized [facility] 03-21-2023 Nurse Note Pt appears asleep at this time with no distress noted and unlabored breathing on room air. Call hinkle is in reach. [facility] 03-21-2023 Nurse Note Assessment remains unchanged unless otherwise noted in flow sheet. Pt medicated via MAR for 8/10 leg pain and ATB hung. Ice cream given per request and denies any other needs. Call hinkle is in reach. [facility] 03-20-2023 Nurse Note Pt appears asleep at this time with no distress noted. Unlabored breathing on room air. Dressings appear dry and intact. Call hinkle is in reach. [facility] 03-20-2023 Nurse Note Assessment unchanged from previous assessment by this RN unless otherwise noted in the flowsheet. Patient appears comfortable, no signs of distress. Call light within reach. [facility] 03-20-2023 Nurse Note Assessment unchanged from previous assessment by this RN unless otherwise noted in the flowsheet. Patient appears comfortable, no signs of distress. Call light within reach. [facility] 03-20-2023 Plan of care note Problem: Skin Integrity Impairment, Risk/Actual (Adult) Goal: Identify Related Risk Factors and Signs and Symptoms Description: Related risk factors and signs and symptoms are identified upon initiation of Human Response Clinical Practice Guideline (CPG) Outcome: Ongoing Goal: Skin Integrity/Wound Healing Description: Patient will demonstrate the desired outcomes by discharge/transition of care. Outcome: Ongoing Problem: Patient Care Overview Goal: Plan of Care Review Outcome: Ongoing Goal: Individualization & Mutuality Outcome: Ongoing Goal: Discharge Needs Assessment Outcome: Ongoing Goal: Interdisciplinary Rounds/Family Conf Outcome: Ongoing Problem: Skin and Soft Tissue Infection (Adult) Goal: Signs and Symptoms of Listed Potential Problems Will be Absent, Minimized or Managed (Skin and Soft Tissue Infection) Description: Signs and symptoms of listed potential problems will be absent, minimized or managed by discharge/transition of care (reference Skin and Soft Tissue Infection (Adult) CPG). Outcome: Ongoing Problem: Pain, Acute (Adult) Goal: Identify Related Risk Factors and Signs and Symptoms Description: Related risk factors and signs and symptoms are identified upon initiation of Human Response Clinical Practice Guideline (CPG) Outcome: Ongoing Goal: Acceptable Pain Control/Comfort Level Description: Patient will demonstrate the desired outcomes by discharge/transition of care. Outcome: Ongoing Problem: Mobility, Physical Impaired (Adult) Goal: Enhanced Mobility Skills Description: Patient will demonstrate the desired outcomes by discharge/transition of care. Patient will demonstrate bed mobility with independence to maximize independence and minimize caregiver burden for discharge home/ the next level of care. Patient will perform transfers with FWW and SBA to minimize risk of falling and maximize independence for return to home/advancing to the next level of care. Patient will ambulate at least 30' with FWW and SBA for household/short community distance and to promote independence for return to home/the next level of care. Patient will perform written HEP with independence in order to continue the gains of the physical therapy program this stay. Patient will participate in 2 minutes of dynamic standing/sitting balance activities with 1 to no UE support and SBA to decrease fall risk at discharge. Outcome: Ongoing [facility] 03-20-2023 Nurse Note Pt resting in bed with eyes closed. Respirations even and non-labored. Assessment without changes. HOB up. Call light in reach. [facility] 03-20-2023 Nurse Note Pt resting in bed with eyes open. Alert and oriented x3. Pt requesting pain medication for bilateral leg and generalized pain. Pt rates pain 8/10 on pain scale. Medicated with Dilaudid as ordered. Assessment unchanged at this time. HOB up. Call light in reach. [facility] 03-19-2023 Nurse Note Pt sitting up in chair at bedside. Assisted to bed at this time. Pt medicated with Dilaudid for c/o pain to BLE. Pt alert and oriented x3. Speech is garbled and difficult to understand. Lung sound clear but diminished. Dressing clean, dry and intact to BLE. Edema remains to BLE. HOB up. Call light in reach. [facility] 03-19-2023 Nurse Note Assessment unchanged from previous assessment by this RN unless otherwise noted in the flowsheet. Patient appears comfortable, no signs of distress. Call light within reach. [facility] 03-19-2023 Nurse Note Assessment unchanged from previous assessment by this RN unless otherwise noted in the flowsheet. Patient appears comfortable, no signs of distress. Call light within reach. [facility] 03-19-2023 Nurse Note Previous assessment unchanged. [facility] 03-19-2023 Plan of care note Problem: Skin Integrity Impairment, Risk/Actual (Adult) Goal: Identify Related Risk Factors and Signs and Symptoms Description: Related risk factors and signs and symptoms are identified upon initiation of Human Response Clinical Practice Guideline (CPG) Outcome: Ongoing Goal: Skin Integrity/Wound Healing Description: Patient will demonstrate the desired outcomes by discharge/transition of care. Outcome: Ongoing Problem: Patient Care Overview Goal: Plan of Care Review Outcome: Ongoing Goal: Individualization & Mutuality Outcome: Ongoing Goal: Discharge Needs Assessment Outcome: Ongoing Goal: Interdisciplinary Rounds/Family Conf Outcome: Ongoing Problem: Skin and Soft Tissue Infection (Adult) Goal: Signs and Symptoms of Listed Potential Problems Will be Absent, Minimized or Managed (Skin and Soft Tissue Infection) Description: Signs and symptoms of listed potential problems will be absent, minimized or managed by discharge/transition of care (reference Skin and Soft Tissue Infection (Adult) CPG). Outcome: Ongoing Problem: Pain, Acute (Adult) Goal: Identify Related Risk Factors and Signs and Symptoms Description: Related risk factors and signs and symptoms are identified upon initiation of Human Response Clinical Practice Guideline (CPG) Outcome: Ongoing Goal: Acceptable Pain Control/Comfort Level Description: Patient will demonstrate the desired outcomes by discharge/transition of care. Outcome: Ongoing Problem: Mobility, Physical Impaired (Adult) Goal: Enhanced Mobility Skills Description: Patient will demonstrate the desired outcomes by discharge/transition of care. Patient will demonstrate bed mobility with independence to maximize independence and minimize caregiver burden for discharge home/ the next level of care. Patient will perform transfers with FWW and SBA to minimize risk of falling and maximize independence for return to home/advancing to the next level of care. Patient will ambulate at least 30' with FWW and SBA for household/short community distance and to promote independence for return to home/the next level of care. Patient will perform written HEP with independence in order to continue the gains of the physical therapy program this stay. Patient will participate in 2 minutes of dynamic standing/sitting balance activities with 1 to no UE support and SBA to decrease fall risk at discharge. Outcome: Ongoing [facility] 03-19-2023 Nurse Note Previous assessment unchanged. LLE dressing changed. Melatonin given for insomnia. [facility] 03-18-2023 Progress note Formatting of t his note might be different from the original. 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 No services rendered. Meron Arias PTA [facility] 03-18-2023 Nurse Note Patient refused. Patient not in weigh bed. RN notified [facility] 03-18-2023 Plan of care note Problem: Skin Integrity Impairment, Risk/Actual (Adult) Goal: Identify Related Risk Factors and Signs and Symptoms Description: Related risk factors and signs and symptoms are identified upon initiation of Human Response Clinical Practice Guideline (CPG) Outcome: Ongoing Flowsheets (Taken 03/18/2023 0446) Related Risk Factors (Skin Integrity Impairment, Risk/Actual): edema skin disorders infection/disease process moisture Signs and Symptoms (Skin Integrity Impairment): edema inflammation Goal: Skin Integrity/Wound Healing Description: Patient will demonstrate the desired outcomes by discharge/transition of care. Outcome: Ongoing Flowsheets (Taken 03/18/2023 0446) Skin Integrity/Wound Healing: making progress toward outcome Problem: Patient Care Overview Goal: Plan of Care Review Outcome: Ongoing Problem: Mobility, Physical Impaired (Adult) Goal: Enhanced Mobility Skills Description: Patient will demonstrate the desired outcomes by discharge/transition of care. Patient will demonstrate bed mobility with independence to maximize independence and minimize caregiver burden for discharge home/ the next level of care. Patient will perform transfers with FWW and SBA to minimize risk of falling and maximize independence for return to home/advancing to the next level of care. Patient will ambulate at least 30' with FWW and SBA for household/short community distance and to promote independence for return to home/the next level of care. Patient will perform written HEP with independence in order to continue the gains of the physical therapy program this stay. Patient will participate in 2 minutes of dynamic standing/sitting balance activities with 1 to no UE support and SBA to decrease fall risk at discharge. Outcome: Ongoing Flowsheets (Taken 03/18/2023 044) Enhanced Mobility Skills: making progress toward outcome Note: 1 assist Problem: Skin Integrity Impairment, Risk/Actual (Adult) Intervention: Promote Skin Healing Flowsheets (Taken 03/17/2023 0949 by Mariella Singh RN) Skin Protection: adhesive use limited Intervention: Promote/Optimize Nutrition Flowsheets (Taken 03/18/2023 0446) Oral Nutrition Promotion: physical activity promoted rest periods promoted safe use of adaptive equipment encouraged Intervention: Prevent/Manage Excess Moisture Flowsheets Taken 03/17/2023 2000 by Meron Back Hygiene Care: bedtime care cervical collar care dressed/undressed back care shampoo Taken 03/17/2023 0949 by Mariella Singh RN Skin Protection: adhesive use limited Intervention: Prevent/Minimize Sheer/Friction Injuries Flowsheets Taken 03/18/2023 0000 by Meron Back Positioning/Transfer Devices: pillows Taken 03/17/2023 0949 by Mariella Singh RN Pressure Reduction Techniques: frequent weight shift encouraged Pressure Reduction Devices: pressure-redistributing mattress utilized [facility] [employer] [facility] 03-18-2023 Nurse Note Pt appears asleep at this time with no distress noted. Unlabored breathing on room air. IV infusing at this time and call hinkle is in reach. [facility] [employer] 03-18-2023 Nurse Note Assessment remains unchanged unless otherwise noted in flow sheet. Pt medicated for 9/10 leg pain via MAR. IV infusing and call hinkle is in reach. Pt requests a Pepsi and strawberry ice cream. [facility] 03-17-2023 Progress note Formatting of t his note might be different from the original. I certify that this patient requires inpatient services at this time. Plans for post hospitalization care will be discharge to home. [facility] 03-17-2023 History and physical note Chief Complaint: 03/16/2023 10:31 PM cellulitis ble History of Present Illness: Patient is a 57 y.o. male presents to the hospital for evaluation of bilateral lower extremity edema, and redness with drainage. Patient states is followed by Dr. Cobb for this. He had cultures done which showed that he had to have his antibiotics switched. On 4 she has not picked up the new antibiotic as of yet. He states he has had increasing fluid retention. He has had some shortness of breath. He denies any chest pain or palpitations. Denies any headache, vision changes or sore throat. He is followed by home health nurse who sent him to the emergency department as they felt they could no longer care for him in the home. Past Medical History: Diagnosis Date Asthma Essential hypertension, benign MRSA (methicillin resistant staph aureus) culture positive rt. lower posteria leg Past Surgical History: Procedure Laterality Date APPENDECTOMY BACK SURGERY FOOT SURGERY Social History Tobacco Use Smoking status: Former Types: Cigarettes Quit date: 2007 Years since quittin.5 Smokeless tobacco: Current Types: Chew Substance Use Topics Alcohol use: Not Currently Family History Problem Relation Age of Onset Heart Disease - Other Mother Diabetes Mother Heart Disease - Other Father Medications Prior to Admission Medication Sig Dispense Refill Last Dose Amoxicillin-clavulanate 500-125 MG tablet Take 1 tablet by mouth 2 times daily for 10 days. 20 tablet 0 03/16/2023 Buprenorphine 8 MG sublingual tablet DISSOLVE ONE TABLET UNDER THE TONGUE THREE TIMES DAILY 03/16/2023 cefadroxil 500 MG capsule Take 1 capsule by mouth every 12 hours for 10 days. 20 capsule 0 03/16/2023 Diazepam 10 MG tablet Take 1 tablet by mouth 2 times daily as needed. 03/16/2023 Diazepam 5 MG tablet TAKE 1 TABLET BY MOUTH EVERY NIGHT AT BEDTIME NEEDED 03/16/2023 Gabapentin 300 MG capsule TAKE ONE CAPSULE BY MOUTH FOUR TIMES DAILY 02/08/2023 Gabapentin 400 MG capsule Take 1 capsule by mouth 4 times daily. 03/16/2023 Glycopyrrolate-Formoterol (Bevespi Aerosphere) 9-4.8 MCG/ACT Aerosol Inhale 2 puffs 2 times daily. 1 Inhaler 11 Past Week Meloxicam 15 MG tablet 03/16/2023 Potassium chloride 20 MEQ Tab CR tablet Take 1 tablet by mouth 2 times daily. 03/16/2023 Symbicort 160-4.5 MCG/ACT Aerosol inhaler Inhale 2 puffs every 12 hours. 10.2 g 1 03/16/2023 Epclusa 400-100 MG tablet Take 1 tablet by mouth daily. (Patient not taking: Reported on 03/11/2023) Unknown furOSEmide 40 MG tablet Take 1 tablet by mouth daily. 30 tablet 0 No Known Allergies Review of Systems: Ten systems reviewed and found to be negative unless otherwise stated in the history and present illness. PHYSICAL EXAM: Patient Vitals for the past 8 hrs: BP Temp Temp src Resp SpO2 03/17/23 1200 99/60 98.8 F (37.1 C) Oral 16 91 % 03/17/23 0819 101/66 98.6 F (37 C) Oral 14 91 % General: Patient resting comfortably. No acute distress. HEENT: Normalcephalic, atraumatic. JESSICA. EOMI. Anicteric. Nose Normal. Ears Normal. OP Clear. No thrush.l Neck: Supple, no JVD, no thyromegaly, no anterior or posterior lymphadenopathy. Cardiovascular: Regular rate and rhythm, without murmurs, rubs, or gallops. Respiratory: clear to ausculation bilaterally, anterior and posteriorly without wheezes, rales, or rhonchi GI; Soft, rounded, non-tender. Bowel sounds present x4 quadrants. No rebound. No organomegaly or masses noted upon deep palpation. Extremities: BLE edema, clubbing or cyanosis, pulses palpable 2+ distally. Musculoskeletal: no obvious deformity, inflammation or tenderness Psych: Patient awake, alert, oriented x 3. Skin: Warm, Dry, Intact. No obvious rashes or lesions noted. Has a wound on his left tibia area with blood underneath skin but no worsening cellulitis noted. Right lower extremity plantar surface and medial area with a lesion that has been chronically present. Right lower extremity has cellulitis and an impetigo like rash that has developed which is new with erythema along his almost entire tibia area Neuro: Cranial nerves 2-12 grossly intact upon seated examination. No focal defiects noted. Speech clear with conversation Diagnostics: Admission on 03/16/2023 Component Date Value WBC (WHITE BLOOD COUNT) 03/17/2023 2.2 (L) RBC 03/17/2023 4.41 HEMOGLOBIN (HGB) 03/17/2023 10.0 (L) HEMATOCRIT (HCT) 03/17/2023 31.4 (L) MEAN CELL VOLUME 03/17/2023 71.1 (L) Mean Cell HGB 03/17/2023 22.7 (L) MEAN CELL HGB CONCENTRAT* 03/17/2023 32.0 RBC DISTRIBUTION 03/17/2023 16.1 (H) PLATELET COUNT 03/17/2023 91 (L) MEAN PLATELET VOLUME 03/17/2023 7.7 DIFFERENTIAL TYPE 03/17/2023 AUTO DIFF NEUTROPHILS 03/17/2023 48.2 LYMPHOCYTE 03/17/2023 31.6 MONOCYTE % 03/17/2023 8.8 EOSINOPHIL % 03/17/2023 10.6 BASOPHIL % 03/17/2023 0.8 Absolute Neutrophil Count 03/17/2023 1.1 (L) LYMPHOCYTES, ABSOLUTE 03/17/2023 0.7 (L) MONOCYTES, ABSOLUTE 03/17/2023 0.2 ABSOLUTE EOSINOPHIL COUNT 03/17/2023 0.2 ABSOLUTE BASOPHIL COUNT 03/17/2023 0.0 MAGNESIUM 03/17/2023 1.7 Glucose 03/17/2023 90 BUN 03/17/2023 16 CREATININE SERUM 03/17/2023 0.50 (L) SODIUM 03/17/2023 133 (L) POTASSIUM 03/17/2023 3.6 CHLORIDE 03/17/2023 96 (L) CARBON DIOXIDE (CO2) 03/17/2023 32 (H) Albumin 03/17/2023 3.0 (L) CALCIUM 03/17/2023 7.9 (L) PHOSPHORUS 03/17/2023 4.4 ESTIMATED GFR, NON AFRIC* 03/17/2023 183 ESTIMATED GFR, A* 03/17/2023 221 GFR COMMENT 03/17/2023 Average GFR for 50-59 years old = 93. SCREEN: MRSA 03/16/2023 NEGATIVE STAPHYOCOCCUS AUREUS BY * 03/16/2023 NEGATIVE Patient Lines/Drains/Airways Status Active Lines, Drains, Airways, & Wound Overview Name Placement date Placement time Site Days Peripheral IV Line - Single Lumen -- -- -- -- Wound Traumatic 02/26/232125 skin tear Anterior;Left;Lower Leg 02/26/232125 Leg 18 Wound Edema Associated Anterior;Lower;Right Leg -- -- Leg -- Wound Pressure Injury 03/16/232299 Right;Plantar Foot 03/16/232299 Foot less than 1 ASSESSMENT & PLAN: Bilateral cellulitis of lower leg- chronic hx of mrsa -follows with ID - wound and blood cultures pending- DR Hayden following- unasyn- cleocin - Drug abuse- drug screen pending Anemia , unspecified Benign hypertension Asthma- duoneb as needed Idiopathic thrombocytopenic purpura (ITP)- stable plt - no bleeding Leukopenia Cirrhosis alcoholic - Hx lymphedema- lasix Chronic hepatitis C without hepatic coma dvt/gip ppi and lovenox Full Code I personally spent 14 minutes in the management of this patient, the details of my visit are listed in my documentation above. This plan of care was initiated in collaboration with the attending physician. Please note Portions of this note utilized [employer] dictation software, please excuse any typographical or grammatical errors. Associated attestation - Power Nelson MD - 03/17/2023 9:09 PM EDT I have independently interviewed and examined the patient. I have discussed armijo elements of the care plan with the [employer] and I agree with the findings and care plan as stated above. Time spent performing exam and reviewing diagnostics results, images and labs and discussing care plan with nurse practitioner and consulting physicians was 76 minutes D/w dr alonzo Pt transferred from [facility] er to [facility] Failed outpt atbx therapy Dr hayden to see Iv atbx Wound care Pt complaints of pain Heart rrr Lungs clear Abd soft bs+ ascites Legs bilat edemas and wounds See orders [facility] 03-17-2023 History and physical note Chief Complaint: 03/16/2023 10:31 PM cellulitis ble History of Present Illness: Patient is a 57 y.o. male presents to the hospital for evaluation of bilateral lower extremity edema, and redness with drainage. Patient states is followed by Dr. Cobb for this. He had cultures done which showed that he had to have his antibiotics switched. On 4 she has not picked up the new antibiotic as of yet. He states he has had increasing fluid retention. He has had some shortness of breath. He denies any chest pain or palpitations. Denies any headache, vision changes or sore throat. He is followed by home health nurse who sent him to the emergency department as they felt they could no longer care for him in the home. Past Medical History: Diagnosis Date Asthma Essential hypertension, benign MRSA (methicillin resistant staph aureus) culture positive rt. lower posteria leg Past Surgical History: Procedure Laterality Date APPENDECTOMY BACK SURGERY FOOT SURGERY Social History Tobacco Use Smoking status: Former Types: Cigarettes Quit date: 2007 Years since quittin.5 Smokeless tobacco: Current Types: Chew Substance Use Topics Alcohol use: Not Currently Family History Problem Relation Age of Onset Heart Disease - Other Mother Diabetes Mother Heart Disease - Other Father Medications Prior to Admission Medication Sig Dispense Refill Last Dose Amoxicillin-clavulanate 500-125 MG tablet Take 1 tablet by mouth 2 times daily for 10 days. 20 tablet 0 03/16/2023 Buprenorphine 8 MG sublingual tablet DISSOLVE ONE TABLET UNDER THE TONGUE THREE TIMES DAILY 03/16/2023 cefadroxil 500 MG capsule Take 1 capsule by mouth every 12 hours for 10 days. 20 capsule 0 03/16/2023 Diazepam 10 MG tablet Take 1 tablet by mouth 2 times daily as needed. 03/16/2023 Diazepam 5 MG tablet TAKE 1 TABLET BY MOUTH EVERY NIGHT AT BEDTIME NEEDED 03/16/2023 Gabapentin 300 MG capsule TAKE ONE CAPSULE BY MOUTH FOUR TIMES DAILY 02/08/2023 Gabapentin 400 MG capsule Take 1 capsule by mouth 4 times daily. 03/16/2023 Glycopyrrolate-Formoterol (Bevespi Aerosphere) 9-4.8 MCG/ACT Aerosol Inhale 2 puffs 2 times daily. 1 Inhaler 11 Past Week Meloxicam 15 MG tablet 03/16/2023 Potassium chloride 20 MEQ Tab CR tablet Take 1 tablet by mouth 2 times daily. 03/16/2023 Symbicort 160-4.5 MCG/ACT Aerosol inhaler Inhale 2 puffs every 12 hours. 10.2 g 1 03/16/2023 Epclusa 400-100 MG tablet Take 1 tablet by mouth daily. (Patient not taking: Reported on 03/11/2023) Unknown furOSEmide 40 MG tablet Take 1 tablet by mouth daily. 30 tablet 0 No Known Allergies Review of Systems: Ten systems reviewed and found to be negative unless otherwise stated in the history and present illness. PHYSICAL EXAM: Patient Vitals for the past 8 hrs: BP Temp Temp src Resp SpO2 03/17/23 1200 99/60 98.8 F (37.1 C) Oral 16 91 % 03/17/23 0819 101/66 98.6 F (37 C) Oral 14 91 % General: Patient resting comfortably. No acute distress. HEENT: Normalcephalic, atraumatic. JESSICA. EOMI. Anicteric. Nose Normal. Ears Normal. OP Clear. No thrush.l Neck: Supple, no JVD, no thyromegaly, no anterior or posterior lymphadenopathy. Cardiovascular: Regular rate and rhythm, without murmurs, rubs, or gallops. Respiratory: clear to ausculation bilaterally, anterior and posteriorly without wheezes, rales, or rhonchi GI; Soft, rounded, non-tender. Bowel sounds present x4 quadrants. No rebound. No organomegaly or masses noted upon deep palpation. Extremities: BLE edema, clubbing or cyanosis, pulses palpable 2+ distally. Musculoskeletal: no obvious deformity, inflammation or tenderness Psych: Patient awake, alert, oriented x 3. Skin: Warm, Dry, Intact. No obvious rashes or lesions noted. Has a wound on his left tibia area with blood underneath skin but no worsening cellulitis noted. Right lower extremity plantar surface and medial area with a lesion that has been chronically present. Right lower extremity has cellulitis and an impetigo like rash that has developed which is new with erythema along his almost entire tibia area Neuro: Cranial nerves 2-12 grossly intact upon seated examination. No focal defiects noted. Speech clear with conversation Diagnostics: Admission on 03/16/2023 Component Date Value WBC (WHITE BLOOD COUNT) 03/17/2023 2.2 (L) RBC 03/17/2023 4.41 HEMOGLOBIN (HGB) 03/17/2023 10.0 (L) HEMATOCRIT (HCT) 03/17/2023 31.4 (L) MEAN CELL VOLUME 03/17/2023 71.1 (L) Mean Cell HGB 03/17/2023 22.7 (L) MEAN CELL HGB CONCENTRAT* 03/17/2023 32.0 RBC DISTRIBUTION 03/17/2023 16.1 (H) PLATELET COUNT 03/17/2023 91 (L) MEAN PLATELET VOLUME 03/17/2023 7.7 DIFFERENTIAL TYPE 03/17/2023 AUTO DIFF NEUTROPHILS 03/17/2023 48.2 LYMPHOCYTE 03/17/2023 31.6 MONOCYTE % 03/17/2023 8.8 EOSINOPHIL % 03/17/2023 10.6 BASOPHIL % 03/17/2023 0.8 Absolute Neutrophil Count 03/17/2023 1.1 (L) LYMPHOCYTES, ABSOLUTE 03/17/2023 0.7 (L) MONOCYTES, ABSOLUTE 03/17/2023 0.2 ABSOLUTE EOSINOPHIL COUNT 03/17/2023 0.2 ABSOLUTE BASOPHIL COUNT 03/17/2023 0.0 MAGNESIUM 03/17/2023 1.7 Glucose 03/17/2023 90 BUN 03/17/2023 16 CREATININE SERUM 03/17/2023 0.50 (L) SODIUM 03/17/2023 133 (L) POTASSIUM 03/17/2023 3.6 CHLORIDE 03/17/2023 96 (L) CARBON DIOXIDE (CO2) 03/17/2023 32 (H) Albumin 03/17/2023 3.0 (L) CALCIUM 03/17/2023 7.9 (L) PHOSPHORUS 03/17/2023 4.4 ESTIMATED GFR, NON AFRIC* 03/17/2023 183 ESTIMATED GFR, A* 03/17/2023 221 GFR COMMENT 03/17/2023 Average GFR for 50-59 years old = 93. SCREEN: MRSA 03/16/2023 NEGATIVE STAPHYOCOCCUS AUREUS BY * 03/16/2023 NEGATIVE Patient Lines/Drains/Airways Status Active Lines, Drains, Airways, & Wound Overview Name Placement date Placement time Site Days Peripheral IV Line - Single Lumen -- -- -- -- Wound Traumatic 02/26/232125 skin tear Anterior;Left;Lower Leg 02/26/232125 Leg 18 Wound Edema Associated Anterior;Lower;Right Leg -- -- Leg -- Wound Pressure Injury 03/16/232299 Right;Plantar Foot 03/16/232299 Foot less than 1 ASSESSMENT & PLAN: Bilateral cellulitis of lower leg- chronic hx of mrsa -follows with ID - wound and blood cultures pending- DR Hayden following- unasyn- cleocin - Drug abuse- drug screen pending Anemia , unspecified Benign hypertension Asthma- duoneb as needed Idiopathic thrombocytopenic purpura (ITP)- stable plt - no bleeding Leukopenia Cirrhosis alcoholic - Hx lymphedema- lasix Chronic hepatitis C without hepatic coma dvt/gip ppi and lovenox Full Code I personally spent 14 minutes in the management of this patient, the details of my visit are listed in my documentation above. This plan of care was initiated in collaboration with the attending physician. Please note Portions of this note utilized [employer] dictation software, please excuse any typographical or grammatical errors. Associated attestation - Power Nelson MD - 03/17/2023 9:09 PM EDT I have independently interviewed and examined the patient. I have discussed armijo elements of the care plan with the [employer] RECEIVING and I agree with the findings and care plan as stated above. Time spent performing exam and reviewing diagnostics results, images and labs and discussing care plan with nurse practitioner and consulting physicians was 76 minutes D/w dr alonzo Pt transferred from [facility] er to [facility] Failed outpt atbx therapy Dr hayden to see Iv atbx Wound care Pt complaints of pain Heart rrr Lungs clear Abd soft bs+ ascites Legs bilat edemas and wounds See orders documented in this encounter [facility] 03-17-2023 Progress note Formatting of t his note might be different from the original. Attempted PT eval [id number]. Pt adamantly declining any participation with therapy evaluations until he receives something "stronger" for pain. Dr. Nelson notified upon entering room, and states plan to place order for medication and nurse also notified. PT to return at a later time as pt agreeable to participate. No services rendered at this time. Kayla Atwood, PT, DPT 03/17/2023 [facility] 03-17-2023 Progress note Formatting of t his note might be different from the original. Order received. Initiated evaluation from [id number] for interview portion of evaluation. Pt's speech difficult to understand. Frequently with eyes closed. Moaning in pain. Upon any attempt at assessment/testing, pt firmly declined stating her needed something for pain prior to further completion of evaluation. RN notified and pt administered tylenol. Returned later in morning at 1106 with pt adamantly declining despite education on purpose of encounter. Pt states he is not participating with therapies until he has something "stronger" for his pain. Dr. Nelson notified upon entering room and states will place order and RN notified. Will return again at a later time for evaluation as pt is agreeable for participation. ROSA Cosby, OTR/L 03/17/2023 [facility] 03-17-2023 Consult note Associated Order (s): IP CONSULT TO INFECTIOUS DISEASE Infectious Disease Consultation Note Consultation Requested by: Dr. Nelson Reason for Consult: Lower extremity wounds with infection SUBJECTIVE History of Present Illness: Carmen Gilman 57 y.o. male with a history of multiple medical problems including a history of hepatitis-C status post recent completion of therapy, alcohol and drug use, cirrhosis with varices as well as lower extremity lymphedema and wounds. Patient had recent hospitalization and was discharged on 03/03 with a history of trauma to his left lower extremity with wound and complications of cellulitis. Patient was treated in the hospital with IV antibiotics and deescalated to Keflex on discharge. Additional history includes malnutrition, obesity, leg edema with recurrent infections, cocaine use, marijuana use, pancytopenia for which he is seen Hematology, asthma/COPD. No known allergies to antibiotics or other medications. Patient has a history of ongoing marijuana use, during recent admission was found to be positive for cocaine although he denies any current drug use or alcohol use. Patient has had a difficult social situation where he lives in a house with other people and states it is difficult to keep his legs dressed and clean. Who states lately he is had the live in his car the last 2 or 3 days. Patient states in the last 2 or 3 days his legs have worsened including bilateral lower extremity pain with new onset right lower extremity drainage and redness. Patient feels chills but no fevers reported by patient. He was previously seen in the hospital and given Keflex on discharge and then followed up in [facility] Disease Clinic on 03/11 and was changed to cefadroxil however the patient did not fruit picker the medication and had been off of antibiotics for 2-3 days prior to admission per his report. His main concern at initial consultation was lower extremity pain he denies any respiratory, abdominal or urinary or symptoms. Patient was seen in the emergency room on 03/16 and began on Unasyn. He was subsequently admitted for inpatient care and IV antibiotics. Infectious disease consult 03/17/2023 ROS A complete review of systems are negative except those consistent with HPI OBJECTIVE Past Medical History: Diagnosis Date Asthma Essential hypertension, benign MRSA (methicillin resistant staph aureus) culture positive rt. lower posteria leg Past Medical History: Diagnosis Date Asthma Essential hypertension, benign MRSA (methicillin resistant staph aureus) culture positive rt. lower posteria leg Past Surgical History: Procedure Laterality Date APPENDECTOMY BACK SURGERY FOOT SURGERY Patient Active Problem List Diagnosis Obesity: body mass index of 35.0-39.9 Hypotension Drug abuse Swelling of bilateral lower extremities Elevated d-dimer Anemia , unspecified Class 2 obesity due to excess calories without serious comorbidity in adult Hyponatremia Acute renal failure Generalized weakness Benign hypertension Asthma Idiopathic thrombocytopenic purpura (ITP) Hyperbilirubinemia Elevated INR Pancytopenia Leukopenia Lymphopenia Microcytic hypochromic anemia Elevated BUN CRP elevated Rheumatoid factor positive 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 Proteinuria Severe protein-calorie malnutrition Chronic hepatitis B without hepatic coma Chronic hepatitis C without hepatic coma Hepatosplenomegaly Bilateral cellulitis of lower leg Cellulitis Social History Socioeconomic History Marital status: Spouse name: Not on file Number of children: Not on file Years of education: Not on file Highest education level: Not on file Occupational History Employer: UNEMPLOYED Tobacco Use Smoking status: Former Types: Cigarettes Quit date: 2007 Years since quittin.5 Smokeless tobacco: Current Types: Chew Vaping Use Vaping Use: Never used Substance and Sexual Activity Alcohol use: Not Currently Drug use: Not Currently Types: Marijuana Comment: Former Sexual activity: Yes Partners: Female Other Topics Concern Service Not Asked Blood Transfusions Not Asked Caffeine Concern Not Asked Occupational Exposure Not Asked Hobby Hazards Not Asked Sleep Concern Not Asked Stress Concern Not Asked Weight Concern Not Asked Special Diet Not Asked Back Care Not Asked Exercise Not Asked Bike Helmet Not Asked Seat Belt Not Asked Domestic Violence No Social History Narrative Not on file Social Determinants of Health Financial Resource Strain: Not on file Food Insecurity: Not on file Transportation Needs: Not on file Physical Activity: Not on file Stress: Not on file Social Connections: Not on file Intimate Partner Violence: Not on file Housing Stability: Not on file Current Facility-Administered Medications: Acetaminophen (TYLENOL) tablet 650 mg, 650 mg, Oral, Q4H PRN, Nestor Alonzo MD Ampicillin-Sulbactam Sodium (UNASYN) 3 g in sodium chloride 0.9% (MB PLUS) 100 mL (total volume) IVPB, 3 g, Intravenous, Q6H, Nestor Alonzo MD, Last Rate: 200 mL/hr at 03/17/23 0557, 3 g at 03/17/23 0557 bisacodyl (DULCOLAX) suppository 10 mg, 10 mg, Rectal, Daily PRN, Nestor Alonzo MD Docusate (COLACE) capsule 100 mg, 100 mg, Oral, Q12H, Nestor Alonzo MD, 100 mg at 03/16/23 2351 Ipratropium-albuterol (DUONEB) 0.5-2.5 (3) MG/3ML nebulizer solution 3 mL, 3 mL, Nebulization, Q4H WA, Nestor Alonzo MD Ondansetron 4mg/2ml (ZOFRAN) injection 4 mg, 4 mg, Intravenous, Q4H PRN, Nestor Alonzo MD No Known Allergies Vitals: 03/16/23 2325 03/17/23 0003 03/17/23 0312 03/17/23 0343 BP: 125/65 114/55 Pulse: 66 71 Resp: 18 19 Temp: 98.4 degrees F (36.9 degrees C) 97.4 degrees F (36.3 degrees C) TempSrc: Oral Oral SpO2: 97% 93% 95% Weight: Height: 1.829 m (6' 0.01") Intake/Output Summary (Last 24 hours) at 03/17/2023 0749 Last data filed at 03/17/2023 0600 Gross per 24 hour Intake 600 ml Output 0 ml Net 600 ml Physical Exam: CONSTITUTIONAL: Alert and Oriented, in appearance with some noted wasting features, afebrile HEENT: Normocephalic and atraumatic, Sclera anicteric, PERRL, poor dentition CARDIAC: Normal rate, regular rhythm, normal heart sounds and intact distal pulses, no murmurs/rubs/clicks/gallops RESP: Effort normal. Diffuse rales and wheezes throughout. No respiratory distress. No Wheezing/Rales/Cough, RA GI: Soft. Bowel sounds are normal. Nontender. Nondistended. Obese : No Suprapubic tenderness EXTREMITES: No cyanosis, clubbing; bilateral lower extremity lymphedema. Has a wound on his left tibia area with blood underneath skin but no worsening cellulitis noted. Right lower extremity plantar surface and medial area with a lesion that has been chronically present. Right lower extremity has cellulitis and an impetigo like rash that has developed which is new with erythema along his almost entire tibia area DERM: Skin is warm and dry. MUSCULARSKELETAL: No septic arthritis noted NEUROLOGIC: Fatigued in appearance but answers questions appropriately LINES: All line sites are clear and without evidence of infection LAB RESULTS: WBC (WHITE BLOOD COUNT) Date/Time Value Ref Range Status 03/17/2023 05:26 AM 2.2 (L) 3.6 - 11.0 10*3/uL Final 03/16/2023 05:53 PM 3.6 3.6 - 11.0 10*3/uL Final 03/03/2023 05:38 AM 2.8 (L) 3.6 - 11.0 10*3/uL Final 03/02/2023 05:57 AM 2.0 (L) 3.6 - 11.0 10*3/uL Final 03/01/2023 03:59 AM 2.0 (L) 3.6 - 11.0 10*3/uL Final 02/28/2023 04:47 AM 1.7 (LL) 3.6 - 11.0 10*3/uL Final Comment: CALLED TO AND READ BACK BY HARDY HUTCHINS RN AT 0523 KK 02/26/2023 09:32 PM 2.9 (L) 3.6 - 11.0 10*3/uL Final HEMOGLOBIN (HGB) Date/Time Value Ref Range Status 03/17/2023 05:26 AM 10.0 (L) 14.0 - 18.0 G/DL Final 03/16/2023 05:53 PM 10.5 (L) 14.0 - 18.0 G/DL Final 03/03/2023 05:38 AM 9.3 (L) 14.0 - 18.0 G/DL Final 03/02/2023 05:57 AM 8.7 (L) 14.0 - 18.0 G/DL Final 03/01/2023 03:59 AM 8.8 (L) 14.0 - 18.0 G/DL Final 02/28/2023 04:47 AM 9.4 (L) 14.0 - 18.0 G/DL Final 02/26/2023 09:32 PM 10.0 (L) 14.0 - 18.0 G/DL Final HEMATOCRIT (HCT) Date/Time Value Ref Range Status 03/17/2023 05:26 AM 31.4 (L) 42.0 - 52.0 % Final 03/16/2023 05:53 PM 33.6 (L) 42.0 - 52.0 % Final 03/03/2023 05:38 AM 29.1 (L) 42.0 - 52.0 % Final 03/02/2023 05:57 AM 27.6 (L) 42.0 - 52.0 % Final 03/01/2023 03:59 AM 27.4 (L) 42.0 - 52.0 % Final 02/28/2023 04:47 AM 29.3 (L) 42.0 - 52.0 % Final 02/26/2023 09:32 PM 31.8 (L) 42.0 - 52.0 % Final PLATELET COUNT Date/Time Value Ref Range Status 03/17/2023 05:26 AM 91 (L) 130 - 400 10*3/uL Final 03/16/2023 05:53 PM 106 (L) 130 - 400 10*3/uL Final 03/03/2023 05:38 AM 96 (L) 130 - 400 10*3/uL Final 03/02/2023 05:57 AM 93 (L) 130 - 400 10*3/uL Final 03/01/2023 03:59 AM 85 (L) 130 - 400 10*3/uL Final 02/28/2023 04:47 AM 91 (L) 130 - 400 10*3/uL Final 02/26/2023 09:32 PM 104 (L) 130 - 400 10*3/uL Final POTASSIUM Date/Time Value Ref Range Status 03/17/2023 05:26 AM 3.6 3.5 - 5.1 MMOL/L Final 03/16/2023 05:53 PM 3.5 3.5 - 5.1 MMOL/L Final 03/03/2023 05:38 AM 4.3 3.5 - 5.1 MMOL/L Final 03/02/2023 05:57 AM 4.1 3.5 - 5.1 MMOL/L Final 03/01/2023 03:59 AM 4.1 3.5 - 5.1 MMOL/L Final 02/28/2023 04:47 AM 3.7 3.5 - 5.1 MMOL/L Final 02/26/2023 09:32 PM 3.8 3.5 - 5.1 MMOL/L Final CHLORIDE Date/Time Value Ref Range Status 03/17/2023 05:26 AM 96 (L) 98 - 107 MMOL/L Final Comment: Please note: Triglyceride levels of 600mg/dL or higher may positively bias chloride results by approximately 2.1 mmol 03/16/2023 05:53 PM 96 (L) 98 - 107 MMOL/L Final Comment: Please note: Triglyceride levels of 600mg/dL or higher may positively bias chloride results by approximately 2.1 mmol 03/03/2023 05:38 AM 113 (H) 98 - 107 MMOL/L Final Comment: Please note: Triglyceride levels of 600mg/dL or higher may positively bias chloride results by approximately 2.1 mmol 03/02/2023 05:57 AM 114 (H) 98 - 107 MMOL/L Final Comment: Please note: Triglyceride levels of 600mg/dL or higher may positively bias chloride results by approximately 2.1 mmol 03/01/2023 03:59 AM 108 (H) 98 - 107 MMOL/L Final Comment: Please note: Triglyceride levels of 600mg/dL or higher may positively bias chloride results by approximately 2.1 mmol 02/28/2023 04:47 AM 107 98 - 107 MMOL/L Final Comment: Please note: Triglyceride levels of 600mg/dL or higher may positively bias chloride results by approximately 2.1 mmol 02/26/2023 09:32 PM 100 98 - 107 MMOL/L Final Comment: Please note: Triglyceride levels of 600mg/dL or higher may positively bias chloride results by approximately 2.1 mmol CARBON DIOXIDE (CO2) Date/Time Value Ref Range Status 03/17/2023 05:26 AM 32 (H) 22 - 30 MMOL/L Final 03/16/2023 05:53 PM 33 (H) 22 - 30 MMOL/L Final 03/03/2023 05:38 AM 25 22 - 30 MMOL/L Final 03/02/2023 05:57 AM 27 22 - 30 MMOL/L Final 03/01/2023 03:59 AM 25 22 - 30 MMOL/L Final 02/28/2023 04:47 AM 27 22 - 30 MMOL/L Final 02/26/2023 09:32 PM 31 (H) 22 - 30 MMOL/L Final GLUCOSE, POINT OF CARE Date/Time Value Ref Range Status 11/13/2021 01:10 PM 111 (H) 70 - 100 MG/DL Final Glucose Date/Time Value Ref Range Status 03/17/2023 05:26 AM 90 70 - 100 MG/DL Final Comment: NORMAL <100 mg/dL PREDIABETES 101-126 mg/dL DIABETES 126 mg/dL or higher 03/16/2023 05:53 PM 116 (H) 70 - 100 MG/DL Final Comment: NORMAL <100 mg/dL PREDIABETES 101-126 mg/dL DIABETES 126 mg/dL or higher 03/03/2023 05:38 AM 93 70 - 100 MG/DL Final Comment: NORMAL <100 mg/dL PREDIABETES 101-126 mg/dL DIABETES 126 mg/dL or higher 03/02/2023 05:57 AM 87 70 - 100 MG/DL Final Comment: NORMAL <100 mg/dL PREDIABETES 101-126 mg/dL DIABETES 126 mg/dL or higher 03/01/2023 03:59 AM 116 (H) 70 - 100 MG/DL Final Comment: NORMAL <100 mg/dL PREDIABETES 101-126 mg/dL DIABETES 126 mg/dL or higher 02/28/2023 04:47 AM 152 (H) 70 - 100 MG/DL Final Comment: NORMAL <100 mg/dL PREDIABETES 101-126 mg/dL DIABETES 126 mg/dL or higher 02/26/2023 09:32 PM 129 (H) 70 - 100 MG/DL Final Comment: NORMAL <100 mg/dL PREDIABETES 101-126 mg/dL DIABETES 126 mg/dL or higher BUN Date/Time Value Ref Range Status 03/17/2023 05:26 AM 16 7 - 20 MG/DL Final 03/16/2023 05:53 PM 15 7 - 20 MG/DL Final 03/03/2023 05:38 AM 16 7 - 20 MG/DL Final 03/02/2023 05:57 AM 13 7 - 20 MG/DL Final 03/01/2023 03:59 AM 15 7 - 20 MG/DL Final 02/28/2023 04:47 AM 16 7 - 20 MG/DL Final 02/26/2023 09:32 PM 17 7 - 20 MG/DL Final CREATININE SERUM Date/Time Value Ref Range Status 03/17/2023 05:26 AM 0.50 (L) 0.7 - 1.2 MG/DL Final 03/16/2023 05:53 PM 0.59 (L) 0.70 - 1.20 MG/DL Final 03/03/2023 05:38 AM 0.50 (L) 0.7 - 1.2 MG/DL Final 03/02/2023 05:57 AM 0.50 (L) 0.7 - 1.2 MG/DL Final 03/01/2023 03:59 AM 0.49 (L) 0.7 - 1.2 MG/DL Final 02/28/2023 04:47 AM 0.51 (L) 0.7 - 1.2 MG/DL Final 02/26/2023 09:32 PM 0.58 (L) 0.70 - 1.20 MG/DL Final Albumin Date/Time Value Ref Range Status 03/17/2023 05:26 AM 3.0 (L) 3.5 - 5.0 G/dl Final 03/16/2023 05:53 PM 3.6 3.5 - 5.0 G/dl Final 03/03/2023 05:38 AM 2.9 (L) 3.5 - 5.0 G/dl Final 03/02/2023 05:57 AM 2.6 (L) 3.5 - 5.0 G/dl Final 03/01/2023 03:59 AM 2.6 (L) 3.5 - 5.0 G/dl Final 02/28/2023 04:47 AM 2.7 (L) 3.5 - 5.0 G/dl Final 02/26/2023 09:32 PM 3.2 (L) 3.5 - 5.0 G/dl Final CALCIUM Date/Time Value Ref Range Status 03/17/2023 05:26 AM 7.9 (L) 8.4 - 10.2 MG/DL Final 03/16/2023 05:53 PM 8.3 (L) 8.4 - 10.2 MG/DL Final 03/03/2023 05:38 AM 8.0 (L) 8.4 - 10.2 MG/DL Final 03/02/2023 05:57 AM 7.9 (L) 8.4 - 10.2 MG/DL Final 03/01/2023 03:59 AM 7.5 (L) 8.4 - 10.2 MG/DL Final 02/28/2023 04:47 AM 7.6 (L) 8.4 - 10.2 MG/DL Final 02/26/2023 09:32 PM 8.0 (L) 8.4 - 10.2 MG/DL Final ALKALINE PHOSPHATASE Date/Time Value Ref Range Status 03/16/2023 05:53 PM 53 38 - 126 IU/L Final 02/26/2023 09:32 PM 54 38 - 126 IU/L Final 02/04/2023 02:50 PM 67 38 - 126 IU/L Final 11/29/2022 01:39 PM 64 38 - 126 IU/L Final 10/27/2022 10:32 AM 66 38 - 126 IU/L Final 09/13/2022 11:05 AM 60 38 - 126 IU/L Final 03/07/2022 12:25 AM 45 38 - 126 IU/L Final AST Date/Time Value Ref Range Status 03/16/2023 05:53 PM 38 17 - 59 IU/L Final 02/26/2023 09:32 PM 26 17 - 59 IU/L Final 02/04/2023 02:50 PM 21 15 - 41 IU/L Final 11/29/2022 01:39 PM 25 15 - 41 IU/L Final 10/27/2022 10:32 AM 22 15 - 41 IU/L Final 09/13/2022 11:05 AM 25 15 - 41 IU/L Final 03/07/2022 12:25 AM 34 15 - 41 IU/L Final BILIRUBIN, TOTAL Date/Time Value Ref Range Status 03/16/2023 05:53 PM 1.6 (H) 0.2 - 1.3 MG/DL Final 02/28/2023 04:47 AM 0.7 Final Comment: Reference range: 0.0 to 1.2 Unit: mg/dL 02/26/2023 09:32 PM 1.1 0.2 - 1.3 MG/DL Final 02/04/2023 02:50 PM 1.1 0.2 - 1.2 MG/DL Final 11/29/2022 01:39 PM 0.9 0.2 - 1.2 MG/DL Final 10/27/2022 10:32 AM 1.5 (H) 0.2 - 1.2 MG/DL Final 09/13/2022 11:05 AM 1.3 (H) 0.2 - 1.2 MG/DL Final ALT Date/Time Value Ref Range Status 03/16/2023 05:53 PM 21 <50 IU/L Final 02/26/2023 09:32 PM 17 <50 IU/L Final 02/04/2023 02:50 PM 14 (L) 17 - 63 IU/L Final 11/29/2022 01:39 PM 14 (L) 17 - 63 IU/L Final 10/27/2022 10:32 AM 12 (L) 17 - 63 IU/L Final 09/13/2022 11:05 AM 13 (L) 17 - 63 IU/L Final 03/07/2022 12:25 AM 20 17 - 63 IU/L Final ESTIMATED GFR, NON AMER Date/Time Value Ref Range Status 03/17/2023 05:26 AM 183 ml/min/1.73sq.m Final 03/16/2023 05:53 PM 151 ml/min/1.73sq.m Final 03/03/2023 05:38 AM 183 ml/min/1.73sq.m Final 03/02/2023 05:57 AM 183 ml/min/1.73sq.m Final 03/01/2023 03:59 AM 187 ml/min/1.73sq.m Final 02/28/2023 04:47 AM 179 ml/min/1.73sq.m Final 02/26/2023 09:32 PM 154 ml/min/1.73sq.m Final ESTIMATED GFR, Date/Time Value Ref Range Status 03/17/2023 05:26 AM 221 ml/min/1.73sq.m Final 03/16/2023 05:53 PM 183 ml/min/1.73sq.m Final 03/03/2023 05:38 AM 221 ml/min/1.73sq.m Final 03/02/2023 05:57 AM 221 ml/min/1.73sq.m Final 03/01/2023 03:59 AM 226 ml/min/1.73sq.m Final 02/28/2023 04:47 AM 216 ml/min/1.73sq.m Final 02/26/2023 09:32 PM 186 ml/min/1.73sq.m Final GFR COMMENT Date/Time Value Ref Range Status 03/17/2023 05:26 AM Average GFR for 50-59 years old = 93. Final Comment: Chronic Kidney disease, GFR = <60. Kidney failure, GFR = <15. The GFR estimate is not adjusted for extreme body surface area or acute process, nor has it been validated for women or ethnic groups other than and . Testing performed at [place], [place] [address] CBC Lab Results Component Value Date WBC 2.2 (L) 03/17/2023 HGB 10.0 (L) 03/17/2023 HCT 31.4 (L) 03/17/2023 PLATELET 91 (L) 03/17/2023 MCV 71.1 (L) 03/17/2023 EDIF Lab Results Component Value Date RBCDISTRIBU 16.1 (H) 03/17/2023 EOSINOPHILS 10.6 03/17/2023 EOSINOPHILS 0.2 03/17/2023 BASOPHILS 0.8 03/17/2023 BASOPHILS 0.0 03/17/2023 LYMPHOCYTABS 0.7 (L) 03/17/2023 PLATELET 91 (L) 03/17/2023 MPV 7.7 03/17/2023 Lab Results Component Value Date SODIUM 133 (L) 03/17/2023 POTASSIUM 3.6 03/17/2023 CHLORIDE 96 (L) 03/17/2023 CO2 32 (H) 03/17/2023 BUN 16 03/17/2023 CREATSERUM 0.50 (L) 03/17/2023 GLUCOSE 90 03/17/2023 Micro Nares 03/10 6-, history of previous MSSA Left lower extremity wounds 03/11 with Enterococcus sensitive to ampicillin Enterococcus Faecalis Group D Ampicillin <=2 SUSCEPT... SS Gentamicin High Level RESISTANT R PENICILLIN G 2 SUSCEPTIBLE SS Streptomycin High Level SUSCEPTIBLE S Vancomycin 1 SUSCEPTIBLE SS Susceptibility Comments Enterococcus Faecalis Group D ENTEROCOCCUS FAECALIS GROUP D Specimen Collected: 03/11/23 12:23 Last Resulted: 03/14/23 11:24 Lab Flowsheet Order Details View Encounter Lab and Collection Details Routing Result History View All Conversations on this Encounter Result Care Coordination Patient Communication Add Comments Not seen Back to Top Result Report CULTURE WOUND (Order #[id number]) on 03/11/23 View [email or web address] Info CULTURE WOUND (Order #[id number]) on 03/11/23 CULTURE WOUND: Patient Communication Add Comments Not seen Collection Information Specimen ID: [id number] Swab LEG Collected: 03/11/2023 12:23 PM 200 Received: 03/11/2023 12:23 PM Resulting Agency: [address] [facility] [id number] Wound culture 02/27 with MSSA Staphylococcus aureus Clindamycin <=0.25 SUSC... SS Erythromycin >=8 RESISTANT R Gentamicin <=0.5 SUSCE... SS Inducible Clindamycin Resistance NEGATIVE S Levofloxacin 0.25 SUSCEP... SS Linezolid 2 SUSCEPTIBLE SS Oxacillin 0.5 SUSCEPT... SS PENICILLIN G >=0.5 RESIS... R Rifampin <=0.5 SUSCE... SS Tetracycline <=1 SUSCEPT... SS Trimethoprim/Sulfamethoxazol <=10 SUSCEP... SS Vancomycin <=0.5 SUSCE... SS No orders to display ASSESSMENT AND PLAN . Carmen Gilman 57 y.o. admitted for lower extremity wounds and worsening infections in the setting of a history of pancytopenia, end-stage liver disease and history of drug and alcohol use Left lower extremity laceration/wound infection -Traumatic injury on 02/25 -nares shows MSSA during early February admission -Blood cultures 02/26 and 02/27 no growth -Wound culture 02/27 MSSA; MSSA is likely the main pathogen, also with a bacillus species on file which is likely more of a colonizer of the skin. -culture also showed Enterococcus on 03/19 but this is more likely a colonizer -ultrasound negative for DVT but does show some reactive inguinal lymph nodes -s/p cefepime and Vancomycin ended 03/03 and transitioned to oral Keflex 500 mg 4 times a day for 8 days, 03/03-03/11, then to cefadroxil, but he never picked up the medication -obtain wound culture if any drainage Right lower extremity soft tissue infection -appearance is consistent with an impetigo like infection -check culture but most likely Staphylococcus or Streptococcus given appearance the patient is at risk for other organisms given his living situation and comorbidities -Unasyn 03/16-current -clindamycin 03/17 added -we will modify antibiotics once we have culture data from wound specimens back -no evidence of sepsis with normal CRP and lactate levels -local dressings, wound care with elevation and fluid management Hepatitis C - INR 1.16 mildly elevated, fibrosure 0.78 consistent with cirrhosis at initial eval, alpha-fetoprotein which was normal -NS5A genotype 3 resistance testing: negative -Hx of decompensated cirrhosis given varices noted. -S/p daily fixed dosing of sofosbuvir 400mg/velpatasvir 100mg (epclusa) x 24 weeks, 08/23/22-current x 24 weeks; completed treatment in early February -Plan SVR in 3 months Cirrhosis/esophageal varices -Patient has seen GI specialist -Testing including ISSAC, Anca, teddy, antimitochondrial antibody, EBV, CMV, ceruloplasmin were normal -EGD with varices, managed by GI -bilirubin increased to 1.6 Positive hepatitis B core antibody -Patient is surface antibody positive but surface antigen negative -Obtained hepatitis B DNA level 06/09 which was negative Drug use -Recommend ongoing cessation, recent positive cocaine test during admission in February -patient endorses using marijuana -recommend cessation of drug use and this was discussed -Check dds Health care maintenance -Patient is immune against hepatitis A and hepatitis B based on serologies -Recommend influenza, coronavirus, shingles, pneumococcal vaccinations but the patient has deferred previously History of alcohol abuse -Currently off of alcohol Pancytopenia -ongoing history of pancytopenia, likely due to underlying liver disease -patient seeing student services vice president Dr Dahl -Positive testing for positive platelet antibodies IIB/IIIA, possible ITP -Possible thalassemia, electrophoresis was not performed though according to lab review -White count 2.2 -Hemoglobin 10 -Platelets of 01 -reticulocyte percentage 2.2, iron, ferritin, B12 and folate normal in past -patient seeing student services vice president Dr Dahl -Positive testing for positive platelet antibodies IIB/IIIA, possible ITPl Soluble transferrin elevated 27 Obesity -Patient with ongoing efforts to lose weight -BMI 31 Right lower extremity wound/feet& toe deformities -Patient saw podiatry Dr. Pelayo in [facility] and then to [facility] with Dr. Bryan; plan shave procedure once legs further healed noted Incarceration history -Patient concerned that he may have been exposed to tuberculosis and TB testing was negative Hx of MSSA colonization -Positive 02/27 -Repeat testing negative 03/16 Lymphedema -Chronic swelling noted -Elevation and diuretics -history of Unna boot use, none current -Ultrasound without DVT but did show reactive adenopathy COPD.RAD -inhalers Social situation -patient states he is a poor living condition and does not have the means to get his own place. Patient states he has been living in his vehicle likely contributing to increasing edema of his lower extremity and worsening wounds/infection -consider swing bed versus nursing facility at discharge -And social work assessment Dr. Nathan Hayden Evaluation entailed >60 minutes of face to face examination, lab review and interpretation, radiology review and interpretation, evaluation of culture data and review of relevant literature and guidelines. Recommendations d/w patient and family if available during consultation process. Thank you for this consultation Nathan Hayden MD [facility] 03-17-2023 Consult note Associated Order (s): IP CONSULT TO INFECTIOUS DISEASE Infectious Disease Consultation Note Consultation Requested by: Dr. Nelson Reason for Consult: Lower extremity wounds with infection SUBJECTIVE History of Present Illness: Carmen Gilman 57 y.o. male with a history of multiple medical problems including a history of hepatitis-C status post recent completion of therapy, alcohol and drug use, cirrhosis with varices as well as lower extremity lymphedema and wounds. Patient had recent hospitalization and was discharged on 03/03 with a history of trauma to his left lower extremity with wound and complications of cellulitis. Patient was treated in the hospital with IV antibiotics and deescalated to Keflex on discharge. Additional history includes malnutrition, obesity, leg edema with recurrent infections, cocaine use, marijuana use, pancytopenia for which he is seen Hematology, asthma/COPD. No known allergies to antibiotics or other medications. Patient has a history of ongoing marijuana use, during recent admission was found to be positive for cocaine although he denies any current drug use or alcohol use. Patient has had a difficult social situation where he lives in a house with other people and states it is difficult to keep his legs dressed and clean. Who states lately he is had the live in his car the last 2 or 3 days. Patient states in the last 2 or 3 days his legs have worsened including bilateral lower extremity pain with new onset right lower extremity drainage and redness. Patient feels chills but no fevers reported by patient. He was previously seen in the hospital and given Keflex on discharge and then followed up in [facility] on 03/11 and was changed to cefadroxil however the patient did not fruit picker the medication and had been off of antibiotics for 2-3 days prior to admission per his report. His main concern at initial consultation was lower extremity pain he denies any respiratory, abdominal or urinary or symptoms. Patient was seen in the emergency room on 03/16 and began on Unasyn. He was subsequently admitted for inpatient care and IV antibiotics. Infectious disease consult 03/17/2023 ROS A complete review of systems are negative except those consistent with HPI OBJECTIVE Past Medical History: Diagnosis Date Asthma Essential hypertension, benign MRSA (methicillin resistant staph aureus) culture positive rt. lower posteria leg Past Medical History: Diagnosis Date Asthma Essential hypertension, benign MRSA (methicillin resistant staph aureus) culture positive rt. lower posteria leg Past Surgical History: Procedure Laterality Date APPENDECTOMY BACK SURGERY FOOT SURGERY Patient Active Problem List Diagnosis Obesity: body mass index of 35.0-39.9 Hypotension Drug abuse Swelling of bilateral lower extremities Elevated d-dimer Anemia , unspecified Class 2 obesity due to excess calories without serious comorbidity in adult Hyponatremia Acute renal failure Generalized weakness Benign hypertension Asthma Idiopathic thrombocytopenic purpura (ITP) Hyperbilirubinemia Elevated INR Pancytopenia Leukopenia Lymphopenia Microcytic hypochromic anemia Elevated BUN CRP elevated Rheumatoid factor positive 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 Proteinuria Severe protein-calorie malnutrition Chronic hepatitis B without hepatic coma Chronic hepatitis C without hepatic coma Hepatosplenomegaly Bilateral cellulitis of lower leg Cellulitis Social History Socioeconomic History Marital status: Spouse name: Not on file Number of children: Not on file Years of education: Not on file Highest education level: Not on file Occupational History Employer: UNEMPLOYED Tobacco Use Smoking status: Former Types: Cigarettes Quit date: 2007 Years since quittin.5 Smokeless tobacco: Current Types: Chew Vaping Use Vaping Use: Never used Substance and Sexual Activity Alcohol use: Not Currently Drug use: Not Currently Types: Marijuana Comment: Former Sexual activity: Yes Partners: Female Other Topics Concern Service Not Asked Blood Transfusions Not Asked Caffeine Concern Not Asked Occupational Exposure Not Asked Hobby Hazards Not Asked Sleep Concern Not Asked Stress Concern Not Asked Weight Concern Not Asked Special Diet Not Asked Back Care Not Asked Exercise Not Asked Bike Helmet Not Asked Seat Belt Not Asked Domestic Violence No Social History Narrative Not on file Social Determinants of Health Financial Resource Strain: Not on file Food Insecurity: Not on file Transportation Needs: Not on file Physical Activity: Not on file Stress: Not on file Social Connections: Not on file Intimate Partner Violence: Not on file Housing Stability: Not on file Current Facility-Administered Medications: Acetaminophen (TYLENOL) tablet 650 mg, 650 mg, Oral, Q4H PRN, Nestor Alonzo MD Ampicillin-Sulbactam Sodium (UNASYN) 3 g in sodium chloride 0.9% (MB PLUS) 100 mL (total volume) IVPB, 3 g, Intravenous, Q6H, Nestor Alonzo MD, Last Rate: 200 mL/hr at 03/17/23 0557, 3 g at 03/17/23 0557 bisacodyl (DULCOLAX) suppository 10 mg, 10 mg, Rectal, Daily PRN, Nestor Alonzo MD Docusate (COLACE) capsule 100 mg, 100 mg, Oral, Q12H, Nestor Alonzo MD, 100 mg at 03/16/23 2351 Ipratropium-albuterol (DUONEB) 0.5-2.5 (3) MG/3ML nebulizer solution 3 mL, 3 mL, Nebulization, Q4H WA, Nestor Alonzo MD Ondansetron 4mg/2ml (ZOFRAN) injection 4 mg, 4 mg, Intravenous, Q4H PRN, Nestor Alonzo MD No Known Allergies Vitals: 03/16/23 2325 03/17/23 0003 03/17/23 0312 03/17/23 0343 BP: 125/65 114/55 Pulse: 66 71 Resp: 18 19 Temp: 98.4 degrees F (36.9 degrees C) 97.4 degrees F (36.3 degrees C) TempSrc: Oral Oral SpO2: 97% 93% 95% Weight: Height: 1.829 m (6' 0.01") Intake/Output Summary (Last 24 hours) at 03/17/2023 0749 Last data filed at 03/17/2023 0600 Gross per 24 hour Intake 600 ml Output 0 ml Net 600 ml Physical Exam: CONSTITUTIONAL: Alert and Oriented, in appearance with some noted wasting features, afebrile HEENT: Normocephalic and atraumatic, Sclera anicteric, PERRL, poor dentition CARDIAC: Normal rate, regular rhythm, normal heart sounds and intact distal pulses, no murmurs/rubs/clicks/gallops RESP: Effort normal. Diffuse rales and wheezes throughout. No respiratory distress. No Wheezing/Rales/Cough, RA GI: Soft. Bowel sounds are normal. Nontender. Nondistended. Obese : No Suprapubic tenderness EXTREMITES: No cyanosis, clubbing; bilateral lower extremity lymphedema. Has a wound on his left tibia area with blood underneath skin but no worsening cellulitis noted. Right lower extremity plantar surface and medial area with a lesion that has been chronically present. Right lower extremity has cellulitis and an impetigo like rash that has developed which is new with erythema along his almost entire tibia area DERM: Skin is warm and dry. MUSCULARSKELETAL: No septic arthritis noted NEUROLOGIC: Fatigued in appearance but answers questions appropriately LINES: All line sites are clear and without evidence of infection LAB RESULTS: WBC (WHITE BLOOD COUNT) Date/Time Value Ref Range Status 03/17/2023 05:26 AM 2.2 (L) 3.6 - 11.0 10*3/uL Final 03/16/2023 05:53 PM 3.6 3.6 - 11.0 10*3/uL Final 03/03/2023 05:38 AM 2.8 (L) 3.6 - 11.0 10*3/uL Final 03/02/2023 05:57 AM 2.0 (L) 3.6 - 11.0 10*3/uL Final 03/01/2023 03:59 AM 2.0 (L) 3.6 - 11.0 10*3/uL Final 02/28/2023 04:47 AM 1.7 (LL) 3.6 - 11.0 10*3/uL Final Comment: CALLED TO AND READ BACK BY HARDY HUTCHINS RN AT 0523 [facility] 02/26/2023 09:32 PM 2.9 (L) 3.6 - 11.0 10*3/uL Final HEMOGLOBIN (HGB) Date/Time Value Ref Range Status 03/17/2023 05:26 AM 10.0 (L) 14.0 - 18.0 G/DL Final 03/16/2023 05:53 PM 10.5 (L) 14.0 - 18.0 G/DL Final 03/03/2023 05:38 AM 9.3 (L) 14.0 - 18.0 G/DL Final 03/02/2023 05:57 AM 8.7 (L) 14.0 - 18.0 G/DL Final 03/01/2023 03:59 AM 8.8 (L) 14.0 - 18.0 G/DL Final 02/28/2023 04:47 AM 9.4 (L) 14.0 - 18.0 G/DL Final 02/26/2023 09:32 PM 10.0 (L) 14.0 - 18.0 G/DL Final HEMATOCRIT (HCT) Date/Time Value Ref Range Status 03/17/2023 05:26 AM 31.4 (L) 42.0 - 52.0 % Final 03/16/2023 05:53 PM 33.6 (L) 42.0 - 52.0 % Final 03/03/2023 05:38 AM 29.1 (L) 42.0 - 52.0 % Final 03/02/2023 05:57 AM 27.6 (L) 42.0 - 52.0 % Final 03/01/2023 03:59 AM 27.4 (L) 42.0 - 52.0 % Final 02/28/2023 04:47 AM 29.3 (L) 42.0 - 52.0 % Final 02/26/2023 09:32 PM 31.8 (L) 42.0 - 52.0 % Final PLATELET COUNT Date/Time Value Ref Range Status 03/17/2023 05:26 AM 91 (L) 130 - 400 10*3/uL Final 03/16/2023 05:53 PM 106 (L) 130 - 400 10*3/uL Final 03/03/2023 05:38 AM 96 (L) 130 - 400 10*3/uL Final 03/02/2023 05:57 AM 93 (L) 130 - 400 10*3/uL Final 03/01/2023 03:59 AM 85 (L) 130 - 400 10*3/uL Final 02/28/2023 04:47 AM 91 (L) 130 - 400 10*3/uL Final 02/26/2023 09:32 PM 104 (L) 130 - 400 10*3/uL Final POTASSIUM Date/Time Value Ref Range Status 03/17/2023 05:26 AM 3.6 3.5 - 5.1 MMOL/L Final 03/16/2023 05:53 PM 3.5 3.5 - 5.1 MMOL/L Final 03/03/2023 05:38 AM 4.3 3.5 - 5.1 MMOL/L Final 03/02/2023 05:57 AM 4.1 3.5 - 5.1 MMOL/L Final 03/01/2023 03:59 AM 4.1 3.5 - 5.1 MMOL/L Final 02/28/2023 04:47 AM 3.7 3.5 - 5.1 MMOL/L Final 02/26/2023 09:32 PM 3.8 3.5 - 5.1 MMOL/L Final CHLORIDE Date/Time Value Ref Range Status 03/17/2023 05:26 AM 96 (L) 98 - 107 MMOL/L Final Comment: Please note: Triglyceride levels of 600mg/dL or higher may positively bias chloride results by approximately 2.1 mmol 03/16/2023 05:53 PM 96 (L) 98 - 107 MMOL/L Final Comment: Please note: Triglyceride levels of 600mg/dL or higher may positively bias chloride results by approximately 2.1 mmol 03/03/2023 05:38 AM 113 (H) 98 - 107 MMOL/L Final Comment: Please note: Triglyceride levels of 600mg/dL or higher may positively bias chloride results by approximately 2.1 mmol 03/02/2023 05:57 AM 114 (H) 98 - 107 MMOL/L Final Comment: Please note: Triglyceride levels of 600mg/dL or higher may positively bias chloride results by approximately 2.1 mmol 03/01/2023 03:59 AM 108 (H) 98 - 107 MMOL/L Final Comment: Please note: Triglyceride levels of 600mg/dL or higher may positively bias chloride results by approximately 2.1 mmol 02/28/2023 04:47 AM 107 98 - 107 MMOL/L Final Comment: Please note: Triglyceride levels of 600mg/dL or higher may positively bias chloride results by approximately 2.1 mmol 02/26/2023 09:32 PM 100 98 - 107 MMOL/L Final Comment: Please note: Triglyceride levels of 600mg/dL or higher may positively bias chloride results by approximately 2.1 mmol CARBON DIOXIDE (CO2) Date/Time Value Ref Range Status 03/17/2023 05:26 AM 32 (H) 22 - 30 MMOL/L Final 03/16/2023 05:53 PM 33 (H) 22 - 30 MMOL/L Final 03/03/2023 05:38 AM 25 22 - 30 MMOL/L Final 03/02/2023 05:57 AM 27 22 - 30 MMOL/L Final 03/01/2023 03:59 AM 25 22 - 30 MMOL/L Final 02/28/2023 04:47 AM 27 22 - 30 MMOL/L Final 02/26/2023 09:32 PM 31 (H) 22 - 30 MMOL/L Final GLUCOSE, POINT OF CARE Date/Time Value Ref Range Status 11/13/2021 01:10 PM 111 (H) 70 - 100 MG/DL Final Glucose Date/Time Value Ref Range Status 03/17/2023 05:26 AM 90 70 - 100 MG/DL Final Comment: NORMAL <100 mg/dL PREDIABETES 101-126 mg/dL DIABETES 126 mg/dL or higher 03/16/2023 05:53 PM 116 (H) 70 - 100 MG/DL Final Comment: NORMAL <100 mg/dL PREDIABETES 101-126 mg/dL DIABETES 126 mg/dL or higher 03/03/2023 05:38 AM 93 70 - 100 MG/DL Final Comment: NORMAL <100 mg/dL PREDIABETES 101-126 mg/dL DIABETES 126 mg/dL or higher 03/02/2023 05:57 AM 87 70 - 100 MG/DL Final Comment: NORMAL <100 mg/dL PREDIABETES 101-126 mg/dL DIABETES 126 mg/dL or higher 03/01/2023 03:59 AM 116 (H) 70 - 100 MG/DL Final Comment: NORMAL <100 mg/dL PREDIABETES 101-126 mg/dL DIABETES 126 mg/dL or higher 02/28/2023 04:47 AM 152 (H) 70 - 100 MG/DL Final Comment: NORMAL <100 mg/dL PREDIABETES 101-126 mg/dL DIABETES 126 mg/dL or higher 02/26/2023 09:32 PM 129 (H) 70 - 100 MG/DL Final Comment: NORMAL <100 mg/dL PREDIABETES 101-126 mg/dL DIABETES 126 mg/dL or higher BUN Date/Time Value Ref Range Status 03/17/2023 05:26 AM 16 7 - 20 MG/DL Final 03/16/2023 05:53 PM 15 7 - 20 MG/DL Final 03/03/2023 05:38 AM 16 7 - 20 MG/DL Final 03/02/2023 05:57 AM 13 7 - 20 MG/DL Final 03/01/2023 03:59 AM 15 7 - 20 MG/DL Final 02/28/2023 04:47 AM 16 7 - 20 MG/DL Final 02/26/2023 09:32 PM 17 7 - 20 MG/DL Final CREATININE SERUM Date/Time Value Ref Range Status 03/17/2023 05:26 AM 0.50 (L) 0.7 - 1.2 MG/DL Final 03/16/2023 05:53 PM 0.59 (L) 0.70 - 1.20 MG/DL Final 03/03/2023 05:38 AM 0.50 (L) 0.7 - 1.2 MG/DL Final 03/02/2023 05:57 AM 0.50 (L) 0.7 - 1.2 MG/DL Final 03/01/2023 03:59 AM 0.49 (L) 0.7 - 1.2 MG/DL Final 02/28/2023 04:47 AM 0.51 (L) 0.7 - 1.2 MG/DL Final 02/26/2023 09:32 PM 0.58 (L) 0.70 - 1.20 MG/DL Final Albumin Date/Time Value Ref Range Status 03/17/2023 05:26 AM 3.0 (L) 3.5 - 5.0 G/dl Final 03/16/2023 05:53 PM 3.6 3.5 - 5.0 G/dl Final 03/03/2023 05:38 AM 2.9 (L) 3.5 - 5.0 G/dl Final 03/02/2023 05:57 AM 2.6 (L) 3.5 - 5.0 G/dl Final 03/01/2023 03:59 AM 2.6 (L) 3.5 - 5.0 G/dl Final 02/28/2023 04:47 AM 2.7 (L) 3.5 - 5.0 G/dl Final 02/26/2023 09:32 PM 3.2 (L) 3.5 - 5.0 G/dl Final CALCIUM Date/Time Value Ref Range Status 03/17/2023 05:26 AM 7.9 (L) 8.4 - 10.2 MG/DL Final 03/16/2023 05:53 PM 8.3 (L) 8.4 - 10.2 MG/DL Final 03/03/2023 05:38 AM 8.0 (L) 8.4 - 10.2 MG/DL Final 03/02/2023 05:57 AM 7.9 (L) 8.4 - 10.2 MG/DL Final 03/01/2023 03:59 AM 7.5 (L) 8.4 - 10.2 MG/DL Final 02/28/2023 04:47 AM 7.6 (L) 8.4 - 10.2 MG/DL Final 02/26/2023 09:32 PM 8.0 (L) 8.4 - 10.2 MG/DL Final ALKALINE PHOSPHATASE Date/Time Value Ref Range Status 03/16/2023 05:53 PM 53 38 - 126 IU/L Final 02/26/2023 09:32 PM 54 38 - 126 IU/L Final 02/04/2023 02:50 PM 67 38 - 126 IU/L Final 11/29/2022 01:39 PM 64 38 - 126 IU/L Final 10/27/2022 10:32 AM 66 38 - 126 IU/L Final 09/13/2022 11:05 AM 60 38 - 126 IU/L Final 03/07/2022 12:25 AM 45 38 - 126 IU/L Final AST Date/Time Value Ref Range Status 03/16/2023 05:53 PM 38 17 - 59 IU/L Final 02/26/2023 09:32 PM 26 17 - 59 IU/L Final 02/04/2023 02:50 PM 21 15 - 41 IU/L Final 11/29/2022 01:39 PM 25 15 - 41 IU/L Final 10/27/2022 10:32 AM 22 15 - 41 IU/L Final 09/13/2022 11:05 AM 25 15 - 41 IU/L Final 03/07/2022 12:25 AM 34 15 - 41 IU/L Final BILIRUBIN, TOTAL Date/Time Value Ref Range Status 03/16/2023 05:53 PM 1.6 (H) 0.2 - 1.3 MG/DL Final 02/28/2023 04:47 AM 0.7 Final Comment: Reference range: 0.0 to 1.2 Unit: mg/dL 02/26/2023 09:32 PM 1.1 0.2 - 1.3 MG/DL Final 02/04/2023 02:50 PM 1.1 0.2 - 1.2 MG/DL Final 11/29/2022 01:39 PM 0.9 0.2 - 1.2 MG/DL Final 10/27/2022 10:32 AM 1.5 (H) 0.2 - 1.2 MG/DL Final 09/13/2022 11:05 AM 1.3 (H) 0.2 - 1.2 MG/DL Final ALT Date/Time Value Ref Range Status 03/16/2023 05:53 PM 21 <50 IU/L Final 02/26/2023 09:32 PM 17 <50 IU/L Final 02/04/2023 02:50 PM 14 (L) 17 - 63 IU/L Final 11/29/2022 01:39 PM 14 (L) 17 - 63 IU/L Final 10/27/2022 10:32 AM 12 (L) 17 - 63 IU/L Final 09/13/2022 11:05 AM 13 (L) 17 - 63 IU/L Final 03/07/2022 12:25 AM 20 17 - 63 IU/L Final ESTIMATED GFR, NON AMER Date/Time Value Ref Range Status 03/17/2023 05:26 AM 183 ml/min/1.73sq.m Final 03/16/2023 05:53 PM 151 ml/min/1.73sq.m Final 03/03/2023 05:38 AM 183 ml/min/1.73sq.m Final 03/02/2023 05:57 AM 183 ml/min/1.73sq.m Final 03/01/2023 03:59 AM 187 ml/min/1.73sq.m Final 02/28/2023 04:47 AM 179 ml/min/1.73sq.m Final 02/26/2023 09:32 PM 154 ml/min/1.73sq.m Final ESTIMATED GFR, Date/Time Value Ref Range Status 03/17/2023 05:26 AM 221 ml/min/1.73sq.m Final 03/16/2023 05:53 PM 183 ml/min/1.73sq.m Final 03/03/2023 05:38 AM 221 ml/min/1.73sq.m Final 03/02/2023 05:57 AM 221 ml/min/1.73sq.m Final 03/01/2023 03:59 AM 226 ml/min/1.73sq.m Final 02/28/2023 04:47 AM 216 ml/min/1.73sq.m Final 02/26/2023 09:32 PM 186 ml/min/1.73sq.m Final GFR COMMENT Date/Time Value Ref Range Status 03/17/2023 05:26 AM Average GFR for 50-59 years old = 93. Final Comment: Chronic Kidney disease, GFR = <60. Kidney failure, GFR = <15. The GFR estimate is not adjusted for extreme body surface area or acute process, nor has it been validated for women or ethnic groups other than and . Testing performed at [facility], [place], [place] [address] CBC Lab Results Component Value Date WBC 2.2 (L) 03/17/2023 HGB 10.0 (L) 03/17/2023 HCT 31.4 (L) 03/17/2023 PLATELET 91 (L) 03/17/2023 MCV 71.1 (L) 03/17/2023 EDIF Lab Results Component Value Date RBCDISTRIBU 16.1 (H) 03/17/2023 EOSINOPHILS 10.6 03/17/2023 EOSINOPHILS 0.2 03/17/2023 BASOPHILS 0.8 03/17/2023 BASOPHILS 0.0 03/17/2023 LYMPHOCYTABS 0.7 (L) 03/17/2023 PLATELET 91 (L) 03/17/2023 MPV 7.7 03/17/2023 Lab Results Component Value Date SODIUM 133 (L) 03/17/2023 POTASSIUM 3.6 03/17/2023 CHLORIDE 96 (L) 03/17/2023 CO2 32 (H) 03/17/2023 BUN 16 03/17/2023 CREATSERUM 0.50 (L) 03/17/2023 GLUCOSE 90 03/17/2023 Micro Nares 03/10 6-, history of previous MSSA Left lower extremity wounds 03/11 with Enterococcus sensitive to ampicillin Enterococcus Faecalis Group D Ampicillin <=2 SUSCEPT... SS Gentamicin High Level RESISTANT R PENICILLIN G 2 SUSCEPTIBLE SS Streptomycin High Level SUSCEPTIBLE S Vancomycin 1 SUSCEPTIBLE SS Susceptibility Comments Enterococcus Faecalis Group D ENTEROCOCCUS FAECALIS GROUP D Specimen Collected: 03/11/23 12:23 Last Resulted: 03/14/23 11:24 Lab Flowsheet Order Details View Encounter Lab and Collection Details Routing Result History View All Conversations on this Encounter Result Care Coordination Patient Communication Add Comments Not seen Back to Top Result Report CULTURE WOUND (Order #[id number]) on 03/11/23 View [email or web address] Info CULTURE WOUND (Order #[id number]) on 03/11/23 CULTURE WOUND: Patient Communication Add Comments Not seen Collection Information Specimen ID: [id number] Swab LEG Collected: 03/11/2023 12:23 PM 200 Received: 03/11/2023 12:23 PM Resulting Agency: [facility] - [address] [place] [address] Wound culture 02/27 with MSSA Staphylococcus aureus Clindamycin <=0.25 SUSC... SS Erythromycin >=8 RESISTANT R Gentamicin <=0.5 SUSCE... SS Inducible Clindamycin Resistance NEGATIVE S Levofloxacin 0.25 SUSCEP... SS Linezolid 2 SUSCEPTIBLE SS Oxacillin 0.5 SUSCEPT... SS PENICILLIN G >=0.5 RESIS... R Rifampin <=0.5 SUSCE... SS Tetracycline <=1 SUSCEPT... SS Trimethoprim/Sulfamethoxazol <=10 SUSCEP... SS Vancomycin <=0.5 SUSCE... SS No orders to display ASSESSMENT AND PLAN . Carmen Gilman 57 y.o. admitted for lower extremity wounds and worsening infections in the setting of a history of pancytopenia, end-stage liver disease and history of drug and alcohol use Left lower extremity laceration/wound infection -Traumatic injury on 02/25 -nares shows MSSA during early February admission -Blood cultures 02/26 and 02/27 no growth -Wound culture 02/27 MSSA; MSSA is likely the main pathogen, also with a bacillus species on file which is likely more of a colonizer of the skin. -culture also showed Enterococcus on 03/19 but this is more likely a colonizer -ultrasound negative for DVT but does show some reactive inguinal lymph nodes -s/p cefepime and Vancomycin ended 03/03 and transitioned to oral Keflex 500 mg 4 times a day for 8 days, 03/03-03/11, then to cefadroxil, but he never picked up the medication -obtain wound culture if any drainage Right lower extremity soft tissue infection -appearance is consistent with an impetigo like infection -check culture but most likely Staphylococcus or Streptococcus given appearance the patient is at risk for other organisms given his living situation and comorbidities -Unasyn 03/16-current -clindamycin 03/17 added -we will modify antibiotics once we have culture data from wound specimens back -no evidence of sepsis with normal CRP and lactate levels -local dressings, wound care with elevation and fluid management Hepatitis C - INR 1.16 mildly elevated, fibrosure 0.78 consistent with cirrhosis at initial eval, alpha-fetoprotein which was normal -NS5A genotype 3 resistance testing: negative -Hx of decompensated cirrhosis given varices noted. -S/p daily fixed dosing of sofosbuvir 400mg/velpatasvir 100mg (epclusa) x 24 weeks, 08/23/22-current x 24 weeks; completed treatment in early February -Plan SVR in 3 months Cirrhosis/esophageal varices -Patient has seen GI specialist -Testing including ISSAC, Anca, teddy, antimitochondrial antibody, EBV, CMV, ceruloplasmin were normal -EGD with varices, managed by GI -bilirubin increased to 1.6 Positive hepatitis B core antibody -Patient is surface antibody positive but surface antigen negative -Obtained hepatitis B DNA level 06/09 which was negative Drug use -Recommend ongoing cessation, recent positive cocaine test during admission in February -patient endorses using marijuana -recommend cessation of drug use and this was discussed -Check dds Health care maintenance -Patient is immune against hepatitis A and hepatitis B based on serologies -Recommend influenza, coronavirus, shingles, pneumococcal vaccinations but the patient has deferred previously History of alcohol abuse -Currently off of alcohol Pancytopenia -ongoing history of pancytopenia, likely due to underlying liver disease -patient seeing student services vice president Dr Dahl -Positive testing for positive platelet antibodies IIB/IIIA, possible ITP -Possible thalassemia, electrophoresis was not performed though according to lab review -White count 2.2 -Hemoglobin 10 -Platelets of 01 -reticulocyte percentage 2.2, iron, ferritin, B12 and folate normal in past -patient seeing student services vice president Dr Dahl -Positive testing for positive platelet antibodies IIB/IIIA, possible ITPl Soluble transferrin elevated 27 Obesity -Patient with ongoing efforts to lose weight -BMI 31 Right lower extremity wound/feet& toe deformities -Patient saw podiatry Dr. Pelayo in [place] and then to [facility] with Dr. Bryan; plan shave procedure once legs further healed noted Incarceration history -Patient concerned that he may have been exposed to tuberculosis and TB testing was negative Hx of MSSA colonization -Positive 02/27 -Repeat testing negative 03/16 Lymphedema -Chronic swelling noted -Elevation and diuretics -history of Unna boot use, none current -Ultrasound without DVT but did show reactive adenopathy COPD.RAD -inhalers Social situation -patient states he is a poor living condition and does not have the means to get his own place. Patient states he has been living in his vehicle likely contributing to increasing edema of his lower extremity and worsening wounds/infection -consider swing bed versus nursing facility at discharge -And social work assessment Dr. Nathan Hayden Evaluation entailed >60 minutes of face to face examination, lab review and interpretation, radiology review and interpretation, evaluation of culture data and review of relevant literature and guidelines. Recommendations d/w patient and family if available during consultation process. Thank you for this consultation Nathan Hayden MD documented in this encounter [facility] 03-17-2023 Plan of care note Problem: Skin Integrity Impairment, Risk/Actual (Adult) Goal: Identify Related Risk Factors and Signs and Symptoms Description: Related risk factors and signs and symptoms are identified upon initiation of Human Response Clinical Practice Guideline (CPG) Outcome: Ongoing Goal: Skin Integrity/Wound Healing Description: Patient will demonstrate the desired outcomes by discharge/transition of care. Outcome: Ongoing Problem: Patient Care Overview Goal: Plan of Care Review Outcome: Ongoing Goal: Individualization & Mutuality Outcome: Ongoing Goal: Discharge Needs Assessment Outcome: Ongoing Goal: Interdisciplinary Rounds/Family Conf Outcome: Ongoing Problem: Skin and Soft Tissue Infection (Adult) Goal: Signs and Symptoms of Listed Potential Problems Will be Absent, Minimized or Managed (Skin and Soft Tissue Infection) Description: Signs and symptoms of listed potential problems will be absent, minimized or managed by discharge/transition of care (reference Skin and Soft Tissue Infection (Adult) CPG). Outcome: Ongoing Problem: Pain, Acute (Adult) Goal: Identify Related Risk Factors and Signs and Symptoms Description: Related risk factors and signs and symptoms are identified upon initiation of Human Response Clinical Practice Guideline (CPG) Outcome: Ongoing Goal: Acceptable Pain Control/Comfort Level Description: Patient will demonstrate the desired outcomes by discharge/transition of care. Outcome: Ongoing [facility] 03-17-2023 Nurse Note Pt resting in bed with eyes closed. Respirations even and non-labored. Assessment without changes. Pillow provided to elevate left leg for comfort as requested. Call light in reach. [facility] 03-17-2023 Nurse Note Pt unable to stand for daily weight and bed does not have scale to weigh patient. [facility] 03-16-2023 Nurse Note Pt resting in bed with eyes open. Assessment completed. Alert and oriented x3. Lung sounds clear but diminished throughout. Wound present to LLE scabbed over. Wound present to plantar aspect of right foot scabbed over. Wounds open to air. Bilateral lower legs with edema, redness , and warmth to touch. Pt reports legs being painful to touch. Call light in reach. [facility] 03-16-2023 Emergency department Note Transport here to take pt to [place] and gave report to Nolvia social media director [facility] 03-16-2023 Emergency department Note Transport here to take pt to [place] and gave report to Nolvia social media director [facility] took patient to [facility] [address] [facility] contacted for transfer. Patient will go to room 264. Call [phone] to be forwarded to [place]. Continuation of Emergency Department Encounter I assumed the patient's care at the change of shift from Dr. Leonard and Razia Franklin, PAC. Please see their note for full history and physical exam. At the time of my assumption of care patient was receiving IV antibiotics. Laboratory studies were done. Patient has failed outpatient therapy for his ulcers and cellulitis of the lower extremities. VITAL SIGNS DURING ED VISIT: Patient Vitals for the past 24 hrs: BP Temp Temp src Pulse Resp SpO2 Weight 03/16/23 1930 113/66 -- -- 60 14 96 % -- 03/16/23 1921 113/63 97 F (36.1 C) Temporal 57 15 100 % -- 03/16/23 1651 -- -- -- -- -- -- 99.8 kg (220 lb) 03/16/23 1650 133/69 98.2 F (36.8 C) Oral 82 16 95 % -- ED COURSE & MEDICAL DECISION MAKING Orders Placed This Encounter XR CHEST AP PORTABLE US DUPLEX EXTREMITY DVT BILATERAL CBC, EDIF, PLATELET COMPREHENSIVE METABOLIC PANEL SEDIMENTATION RATE, AUTOMATED B-TYPE NATRIURETIC PEPTIDE (BRAIN) Troponin I, High sensitivity C REACTIVE PROTEIN CK LACTATE, BLOOD ECG Ampicillin-Sulbactam Sodium (UNASYN) 3 g in sodium chloride 0.9% (MB PLUS) 100 mL (total volume) IVPB furOSEmide (LASIX) injection 40 mg LABS Results for orders placed or performed during the hospital encounter of 03/16/23 CBC, EDIF, PLATELET Result Value Ref Range WBC (WHITE BLOOD COUNT) 3.6 3.6 - 11.0 10*3/uL RBC 4.68 4.0 - 6.1 10*6/uL HEMOGLOBIN (HGB) 10.5 (L) 14.0 - 18.0 G/DL HEMATOCRIT (HCT) 33.6 (L) 42.0 - 52.0 % MEAN CELL VOLUME 71.7 (L) 80.0 - 100.0 FL Mean Cell HGB 22.4 (L) 26.0 - 35.0 PG MEAN CELL HGB CONCENTRATION 31.3 27.0 - 37.0 G/DL RBC DISTRIBUTION 15.9 (H) 11.5 - 14.5 % PLATELET COUNT 106 (L) 130 - 400 10*3/uL MEAN PLATELET VOLUME 7.7 7.4 - 11.0 FL DIFFERENTIAL TYPE AUTO DIFF % NEUTROPHILS 64.1 37.0 - 75.0 % LYMPHOCYTE 16.9 (L) 20.0 - 55.0 % MONOCYTE % 9.6 0.0 - 10.0 % EOSINOPHIL % 9.0 0.0 - 11.0 % BASOPHIL % 0.4 0.0 - 2.0 % Absolute Neutrophil Count 2.3 1.4 - 6.5 10*3/uL LYMPHOCYTES, ABSOLUTE 0.6 (L) 1.2 - 3.4 10*3/uL MONOCYTES, ABSOLUTE 0.4 0.0 - 0.7 10*3/uL ABSOLUTE EOSINOPHIL COUNT 0.3 0.0 - 0.7 10*3/uL ABSOLUTE BASOPHIL COUNT 0.0 0.0 - 0.2 10*3/uL COMPREHENSIVE METABOLIC PANEL Result Value Ref Range Glucose 116 (H) 70 - 100 MG/DL BUN 15 7 - 20 MG/DL CREATININE SERUM 0.59 (L) 0.70 - 1.20 MG/DL SODIUM 137 137 - 145 MMOL/L POTASSIUM 3.5 3.5 - 5.1 MMOL/L CHLORIDE 96 (L) 98 - 107 MMOL/L CALCIUM 8.3 (L) 8.4 - 10.2 MG/DL PROTEIN, TOTAL 8.1 6.3 - 8.2 GM/DL Albumin 3.6 3.5 - 5.0 G/dl BILIRUBIN, TOTAL 1.6 (H) 0.2 - 1.3 MG/DL AST 38 17 - 59 IU/L ALKALINE PHOSPHATASE 53 38 - 126 IU/L CARBON DIOXIDE (CO2) 33 (H) 22 - 30 MMOL/L A/G Ratio 0.8 RATIO ALT 21 <50 IU/L ESTIMATED GFR, NON AMER 151 ml/min/1.73sq.m ESTIMATED GFR, 183 ml/min/1.73sq.m GFR COMMENT Average GFR for 50-59 years old = 93. SEDIMENTATION RATE, AUTOMATED Result Value Ref Range SEDIMENTATION RATE AUTOMATED 65 (H) 0 - 20 MM/HR B-TYPE NATRIURETIC PEPTIDE (BRAIN) Result Value Ref Range BRAIN NATRIURETIC PEPTIDE 27 0 - 100 pg/mL TROPONIN I, HIGH SENSITIVITY Result Value Ref Range TROPONIN I, HIGH SENSITIVITY 2 0 - 20 pg/mL LACTATE, BLOOD Result Value Ref Range LACTATE 1.7 0.7 - 2.0 mmol/L IMAGING: US DUPLEX EXTREMITY DVT BILATERAL Final Result IMPRESSION: No visualized venous thrombus. Right inguinal lymph node. XR CHEST AP PORTABLE Final Result IMPRESSION: No acute findings. CLINICAL IMPRESSIONS: 1. Cellulitis of lower extremity, unspecified laterality 2. Failure of outpatient treatment 3. Ulcers of both lower legs, limited to breakdown of skin DISPOSITION: This patient has failed outpatient therapy. He sees Dr. Taylor consult. At this time there are no beds available at [facility]. I spoke to the patient about the risks and benefits of transfer. He voiced understanding and gave verbal consent. I spoke to the nursing catastrophe claims supervisor who is making arrangements for a bed to [facility]. Dr. Nelson contacted and will care for the patient in the [facility]. Transfer paper filled out and placed on chart. I spoke with the nursing catastrophe claims supervisor. As the patient has failed outpatient antibiotic therapy he will meet inpatient criteria. No follow-ups on file. New Prescriptions No medications on file Discontinued Medications No medications on file An after visit summary was printed and given to the patient with the above information. Portions of this chart were created using [employer] electronic dictation. Please excuse any typographical or grammatical errors contained herein. Nestor Alonzo MD 03/16/232007 Paged Dr Nelson per Dr Alonzo request Received report from Aide MENDOZA US at bedside Patient was seen by me as well as the PA all medical decision making and course was discussed with me. 57-year-old male complaining of swelling of his legs. He states also had drainage. He has been following up with infectious disease. He is been on antibiotics and he recently switched his antibiotics. He has not gotten this filled. He denies any fever. Denies any vomiting or diarrhea. He denies any new trauma or injury. General: Well-developed male HENT: head is atraumatic. Face is symmetric. Mucous membranes are hydrated Eyes: pupils are equal. Sclerae anicteric Skin: redness noted to the lower extremities. There is seeping noted to the right leg. There is a healing skin tear on his left lower extremity Abdomen: soft. No distention guarding or rebound. Respiratory: clear. No rhonchi. No wheezing Heart: . Heart tones are regular. Capillary refill is brisk Neurologic: awake, alert.. Oriented 3 Lymphatic: edema noted in both lower extremities. Right greater than left Musculoskeletal: no evidence of trauma or fracture Shai Leonard MD 03/16/23 1747 Pt has been brought back to room 5 at this time documented in this encounter [facility] 03-16-2023 Emergency department Note [facility] took patient to [facility] 264 [facility] 03-16-2023 Emergency department Note [facility] contacted for transfer. Patient will go to room 264. Call [phone] to be forwarded to [place]. [facility] 03-16-2023 Physician Emergency department Note Continuation of Emergency Department Encounter I assumed the patient's care at the change of shift from Dr. Leonard and YUKI Schmitz. Please see their note for full history and physical exam. At the time of my assumption of care patient was receiving IV antibiotics. Laboratory studies were done. Patient has failed outpatient therapy for his ulcers and cellulitis of the lower extremities. VITAL SIGNS DURING ED VISIT: Patient Vitals for the past 24 hrs: BP Temp Temp src Pulse Resp SpO2 Weight 03/16/23 1930 113/66 -- -- 60 14 96 % -- 03/16/23 1921 113/63 97 F (36.1 C) Temporal 57 15 100 % -- 03/16/23 1651 -- -- -- -- -- -- 99.8 kg (220 lb) 03/16/231649 133/69 98.2 F (36.8 C) Oral 82 16 95 % -- ED COURSE & MEDICAL DECISION MAKING Orders Placed This Encounter XR CHEST AP PORTABLE US DUPLEX EXTREMITY DVT BILATERAL CBC, EDIF, PLATELET COMPREHENSIVE METABOLIC PANEL SEDIMENTATION RATE, AUTOMATED B-TYPE NATRIURETIC PEPTIDE (BRAIN) Troponin I, High sensitivity C REACTIVE PROTEIN CK LACTATE, BLOOD ECG Ampicillin-Sulbactam Sodium (UNASYN) 3 g in sodium chloride 0.9% (MB PLUS) 100 mL (total volume) IVPB furOSEmide (LASIX) injection 40 mg LABS Results for orders placed or performed during the hospital encounter of 03/16/23 CBC, EDIF, PLATELET Result Value Ref Range WBC (WHITE BLOOD COUNT) 3.6 3.6 - 11.0 10*3/uL RBC 4.68 4.0 - 6.1 10*6/uL HEMOGLOBIN (HGB) 10.5 (L) 14.0 - 18.0 G/DL HEMATOCRIT (HCT) 33.6 (L) 42.0 - 52.0 % MEAN CELL VOLUME 71.7 (L) 80.0 - 100.0 FL Mean Cell HGB 22.4 (L) 26.0 - 35.0 PG MEAN CELL HGB CONCENTRATION 31.3 27.0 - 37.0 G/DL RBC DISTRIBUTION 15.9 (H) 11.5 - 14.5 % PLATELET COUNT 106 (L) 130 - 400 10*3/uL MEAN PLATELET VOLUME 7.7 7.4 - 11.0 FL DIFFERENTIAL TYPE AUTO DIFF % NEUTROPHILS 64.1 37.0 - 75.0 % LYMPHOCYTE 16.9 (L) 20.0 - 55.0 % MONOCYTE % 9.6 0.0 - 10.0 % EOSINOPHIL % 9.0 0.0 - 11.0 % BASOPHIL % 0.4 0.0 - 2.0 % Absolute Neutrophil Count 2.3 1.4 - 6.5 10*3/uL LYMPHOCYTES, ABSOLUTE 0.6 (L) 1.2 - 3.4 10*3/uL MONOCYTES, ABSOLUTE 0.4 0.0 - 0.7 10*3/uL ABSOLUTE EOSINOPHIL COUNT 0.3 0.0 - 0.7 10*3/uL ABSOLUTE BASOPHIL COUNT 0.0 0.0 - 0.2 10*3/uL COMPREHENSIVE METABOLIC PANEL Result Value Ref Range Glucose 116 (H) 70 - 100 MG/DL BUN 15 7 - 20 MG/DL CREATININE SERUM 0.59 (L) 0.70 - 1.20 MG/DL SODIUM 137 137 - 145 MMOL/L POTASSIUM 3.5 3.5 - 5.1 MMOL/L CHLORIDE 96 (L) 98 - 107 MMOL/L CALCIUM 8.3 (L) 8.4 - 10.2 MG/DL PROTEIN, TOTAL 8.1 6.3 - 8.2 GM/DL Albumin 3.6 3.5 - 5.0 G/dl BILIRUBIN, TOTAL 1.6 (H) 0.2 - 1.3 MG/DL AST 38 17 - 59 IU/L ALKALINE PHOSPHATASE 53 38 - 126 IU/L CARBON DIOXIDE (CO2) 33 (H) 22 - 30 MMOL/L A/G Ratio 0.8 RATIO ALT 21 <50 IU/L ESTIMATED GFR, NON AMER 151 ml/min/1.73sq.m ESTIMATED GFR, 183 ml/min/1.73sq.m GFR COMMENT Average GFR for 50-59 years old = 93. SEDIMENTATION RATE, AUTOMATED Result Value Ref Range SEDIMENTATION RATE AUTOMATED 65 (H) 0 - 20 MM/HR B-TYPE NATRIURETIC PEPTIDE (BRAIN) Result Value Ref Range BRAIN NATRIURETIC PEPTIDE 27 0 - 100 pg/mL TROPONIN I, HIGH SENSITIVITY Result Value Ref Range TROPONIN I, HIGH SENSITIVITY 2 0 - 20 pg/mL LACTATE, BLOOD Result Value Ref Range LACTATE 1.7 0.7 - 2.0 mmol/L IMAGING: US DUPLEX EXTREMITY DVT BILATERAL Final Result IMPRESSION: No visualized venous thrombus. Right inguinal lymph node. XR CHEST AP PORTABLE Final Result IMPRESSION: No acute findings. CLINICAL IMPRESSIONS: 1. Cellulitis of lower extremity, unspecified laterality 2. Failure of outpatient treatment 3. Ulcers of both lower legs, limited to breakdown of skin DISPOSITION: This patient has failed outpatient therapy. He sees Dr. Taylor consult. At this time there are no beds available at [facility]. I spoke to the patient about the risks and benefits of transfer. He voiced understanding and gave verbal consent. I spoke to the nursing catastrophe claims supervisor who is making arrangements for a bed to [facility] in [facility]. Dr. Nelson contacted and will care for the patient in the [facility] in hospital. Transfer paper filled out and placed on chart. I spoke with the nursing catastrophe claims supervisor. As the patient has failed outpatient antibiotic therapy he will meet inpatient criteria. No follow-ups on file. New Prescriptions No medications on file Discontinued Medications No medications on file An after visit summary was printed and given to the patient with the above information. Portions of this chart were created using [employer] electronic dictation. Please excuse any typographical or grammatical errors contained herein. Nestor Alonzo MD 03/16/232007 [facility] 03-16-2023 Emergency department Note Paged Dr Nelson per Dr Alonzo request [facility] 03-16-2023 Emergency department Note Received report from Aide MENDOZA [facility] 03-16-2023 Emergency department Note US at bedside [facility] 03-16-2023 Physician Emergency department Note Patient was seen by me as well as the PA all medical decision making and course was discussed with me. 57-year-old male complaining of swelling of his legs. He states also had drainage. He has been following up with infectious disease. He is been on antibiotics and he recently switched his antibiotics. He has not gotten this filled. He denies any fever. Denies any vomiting or diarrhea. He denies any new trauma or injury. General: Well-developed male HENT: head is atraumatic. Face is symmetric. Mucous membranes are hydrated Eyes: pupils are equal. Sclerae anicteric Skin: redness noted to the lower extremities. There is seeping noted to the right leg. There is a healing skin tear on his left lower extremity Abdomen: soft. No distention guarding or rebound. Respiratory: clear. No rhonchi. No wheezing Heart: . Heart tones are regular. Capillary refill is brisk Neurologic: awake, alert.. Oriented 3 Lymphatic: edema noted in both lower extremities. Right greater than left Musculoskeletal: no evidence of trauma or fracture Shai Leonard MD 03/16/23 5627 [facility] Work Phone: 03-16-2023 Emergency department Note Pt has been brought back to room 5 at this time [facility] 02-26-2023 Emergency department Note Zach MARTE RN (kara) notified. [facility] 02-26-2023 Emergency department Note aZch MARTE RN (kara) notified. Bed assignment #208 [facility], report # [id number], RN notified. [facility] called back with room assignment. Patient will go to room 208. Call [phone] rodríguez for nuno dumont. [facility] contacted for transfer. Will call back with room assignment. Called dr rodríguez for nuno dumont. Left voicemail. Images from the original note were not included. Emergency Department Report [facility] EMERGENCY DEPARTMENT Service Date:.02/26/23 PCP: Ani Worley Chief Complaint: Chief Complaint Patient presents with Leg Swelling Bilateral leg swelling. Hit leg on bike last pm. Laceration Left lower leg. LUKASZ Gilman is a 57 y.o. male presents to the ED today due to laceration to left lower leg. Right lower leg edema. Patient states that yesterday he cut his left lower leg on the metal pedal of a workshop bike in [place]. He has not seek care for the wound he states that he took paper towels from a [employer]'s restaurant and tape gum to his leg. Injury happened at 8:00 p.m. on 02/25/2023. Patient reports he has also had increased swelling in the right leg. He has been seen at wound center for management of an infection abscess in the right lower leg however states the swelling has recently increased. He denies any fever chills body aches. No chest pain or shortness of breath. No nausea or vomiting. He is also seeing Podiatry for a wound on the bottom of his right foot. Review of Systems: Review of Systems Constitutional: Negative. HENT: Negative. Eyes: Negative. Respiratory: Negative. Cardiovascular: Positive for leg swelling. Gastrointestinal: Negative. Endocrine: Negative. Genitourinary: Negative. Musculoskeletal: Positive for arthralgias and myalgias. Skin: Positive for wound. Allergic/Immunologic: Negative. Neurological: Negative. Hematological: Negative. Psychiatric/Behavioral: Negative. Past Medical History: Past Medical History: Diagnosis Date Asthma Essential hypertension, benign MRSA (methicillin resistant staph aureus) culture positive rt. lower posteria leg Past Surgical History: Past Surgical History: Procedure Laterality Date APPENDECTOMY BACK SURGERY FOOT SURGERY Allergies: No Known Allergies Medications: Patient's Medications New Prescriptions No medications on file Previous Medications BUPRENORPHINE 8 MG SUBLINGUAL TABLET DISSOLVE ONE TABLET UNDER THE TONGUE THREE TIMES DAILY DIAZEPAM 5 MG TABLET TAKE 1 TABLET BY MOUTH EVERY NIGHT AT BEDTIME NEEDED EPCLUSA 400-100 MG TABLET Take 1 tablet by mouth daily. FLUCONAZOLE (DIFLUCAN) 100 MG TABLET Take 1 tablet by mouth daily. FUROSEMIDE 40 MG TABLET Take 1 tablet by mouth daily. GABAPENTIN 300 MG CAPSULE TAKE ONE CAPSULE BY MOUTH FOUR TIMES DAILY GABAPENTIN 800 MG TABLET Take 1 tablet by mouth 3 times daily. GLYCOPYRROLATE-FORMOTEROL (BEVESPI AEROSPHERE) 9-4.8 MCG/ACT AEROSOL Inhale 2 puffs 2 times daily. MELOXICAM 15 MG TABLET POTASSIUM CHLORIDE 20 MEQ TAB CR TABLET Take 1 tablet by mouth 2 times daily. SPIRONOLACTONE 25 MG TABLET Take 1 tablet by mouth daily. SYMBICORT 160-4.5 MCG/ACT AEROSOL INHALER INHALE 2 PUFFS BY MOUTH TWICE DAILY Modified Medications No medications on file Discontinued Medications No medications on file Family History: Family History Problem Relation Age of Onset Heart Disease - Other Mother Diabetes Mother Heart Disease - Other Father Social History: Social History Socioeconomic History Marital status: Spouse name: Not on file Number of children: Not on file Years of education: Not on file Highest education level: Not on file Occupational History Employer: UNEMPLOYED Tobacco Use Smoking status: Former Types: Cigarettes Quit date: 2007 Years since quittin.5 Smokeless tobacco: Current Types: Chew Vaping Use Vaping Use: Never used Substance and Sexual Activity Alcohol use: Not Currently Drug use: Not Currently Types: Marijuana Comment: Former Sexual activity: Yes Partners: Female Other Topics Concern Service Not Asked Blood Transfusions Not Asked Caffeine Concern Not Asked Occupational Exposure Not Asked Hobby Hazards Not Asked Sleep Concern Not Asked Stress Concern Not Asked Weight Concern Not Asked Special Diet Not Asked Back Care Not Asked Exercise Not Asked Bike Helmet Not Asked Seat Belt Not Asked Domestic Violence No Social History Narrative Not on file Social Determinants of Health Financial Resource Strain: Not on file Food Insecurity: Not on file Transportation Needs: Not on file Physical Activity: Not on file Stress: Not on file Social Connections: Not on file Intimate Partner Violence: Not on file Housing Stability: Not on file Physical Exam: Physical Exam Vitals and nursing note reviewed. Constitutional: General: He is not in acute distress. Appearance: Normal appearance. He is obese. He is not ill-appearing or diaphoretic. HENT: Head: Normocephalic and atraumatic. Right Ear: Tympanic membrane, ear canal and external ear normal. Left Ear: Tympanic membrane, ear canal and external ear normal. Nose: Nose normal. Mouth/Throat: Mouth: Mucous membranes are moist. Eyes: Extraocular Movements: Extraocular movements intact. Conjunctiva/sclera: Conjunctivae normal. Pupils: Pupils are equal, round, and reactive to light. Pulmonary: Effort: Pulmonary effort is normal. No respiratory distress. Breath sounds: Normal breath sounds. No stridor. No wheezing, rhonchi or rales. Chest: Chest wall: No tenderness. Abdominal: General: Abdomen is flat. There is no distension. Palpations: Abdomen is soft. There is no mass. Tenderness: There is no abdominal tenderness. There is no right CVA tenderness, left CVA tenderness, guarding or rebound. Hernia: No hernia is present. Musculoskeletal: General: Normal range of motion. Cervical back: Normal range of motion and neck supple. Lymphadenopathy: Cervical: No cervical adenopathy. Skin: General: Skin is warm and dry. Capillary Refill: Capillary refill takes less than 2 seconds. Findings: Laceration and wound present. Comments: Laceration is approximately 4 cm wide by 7 cm along. Bleeding is controlled Neurological: General: No focal deficit present. Mental Status: He is alert and oriented to person, place, and time. Psychiatric: Mood and Affect: Mood normal. Vital Signs During ED Visit Patient Vitals for the past 24 hrs: BP Temp Temp src Pulse Resp SpO2 Height 02/26/23 2230 96/55 -- -- 67 19 93 % -- 02/26/23 2224 111/57 -- -- 68 19 99 % -- 02/26/232036 -- -- -- -- -- -- 1.829 m (6') 02/26/232035 118/64 97.4 F (36.3 C) Oral 78 18 95 % -- Orders/Results: Orders Placed This Encounter BLOOD CULTURE, PERIPHERAL 1ST SITE BLOOD CULTURE, PERIPHERAL 2ND SITE MRSA NASAL SWABS TO BILATERAL NARES US DUPLEX EXTREMITY DVT RIGHT COMPREHENSIVE METABOLIC PANEL MAGNESIUM CBC, EDIF, PLATELET LACTATE, BLOOD PROTIME-INR TOXICOLOGY DRUG SCREEN, URINE Sodium chloride 0.9% IV solution Ondansetron 4mg/2ml (ZOFRAN) injection 4 mg Morphine sulfate (PF) injection 4 mg Vancomycin (VANCOCIN) 1,500 mg in Sodium chloride 0.9%, with overfill 565 mL (total volume) IVPB Nntcuog-Zjaran-Bnzof Pertussis (BOOSTRIX) syringe 0.5 mL Bacitracin ointment 1 Application Sodium chloride 0.9% IV solution 1,000 mL Enoxaparin Sodium (LOVENOX) injection 100 mg ceFEPIme (MAXIPIME) 2 g in sodium chloride 0.9% (MB PLUS) 100 mL (total volume) IVPB ceFEPIme (MAXIPIME) 2 g in sodium chloride 0.9% (MB PLUS) 100 mL (total volume) IVPB Results for orders placed or performed during the hospital encounter of 02/26/23 COMPREHENSIVE METABOLIC PANEL Result Value Ref Range Glucose 129 (H) 70 - 100 MG/DL BUN 17 7 - 20 MG/DL CREATININE SERUM 0.58 (L) 0.70 - 1.20 MG/DL SODIUM 138 137 - 145 MMOL/L POTASSIUM 3.8 3.5 - 5.1 MMOL/L CHLORIDE 100 98 - 107 MMOL/L CALCIUM 8.0 (L) 8.4 - 10.2 MG/DL PROTEIN, TOTAL 7.4 6.3 - 8.2 GM/DL Albumin 3.2 (L) 3.5 - 5.0 G/dl BILIRUBIN, TOTAL 1.1 0.2 - 1.3 MG/DL AST 26 17 - 59 IU/L ALKALINE PHOSPHATASE 54 38 - 126 IU/L CARBON DIOXIDE (CO2) 31 (H) 22 - 30 MMOL/L A/G Ratio 0.8 RATIO ALT 17 <50 IU/L ESTIMATED GFR, NON AMER 154 ml/min/1.73sq.m ESTIMATED GFR, 186 ml/min/1.73sq.m GFR COMMENT Average GFR for 50-59 years old = 93. MAGNESIUM Result Value Ref Range MAGNESIUM 1.9 1.6 - 2.3 MG/DL CBC, EDIF, PLATELET Result Value Ref Range WBC (WHITE BLOOD COUNT) 2.9 (L) 3.6 - 11.0 10*3/uL RBC 4.44 4.0 - 6.1 10*6/uL HEMOGLOBIN (HGB) 10.0 (L) 14.0 - 18.0 G/DL HEMATOCRIT (HCT) 31.8 (L) 42.0 - 52.0 % MEAN CELL VOLUME 71.5 (L) 80.0 - 100.0 FL Mean Cell HGB 22.5 (L) 26.0 - 35.0 PG MEAN CELL HGB CONCENTRATION 31.4 27.0 - 37.0 G/DL RBC DISTRIBUTION 16.6 (H) 11.5 - 14.5 % PLATELET COUNT 104 (L) 130 - 400 10*3/uL MEAN PLATELET VOLUME 8.5 7.4 - 11.0 FL DIFFERENTIAL TYPE AUTO DIFF % NEUTROPHILS 67.6 37.0 - 75.0 % LYMPHOCYTE 19.7 (L) 20.0 - 55.0 % MONOCYTE % 10.5 (H) 0.0 - 10.0 % EOSINOPHIL % 2.0 0.0 - 11.0 % BASOPHIL % 0.2 0.0 - 2.0 % Absolute Neutrophil Count 1.9 1.4 - 6.5 10*3/uL LYMPHOCYTES, ABSOLUTE 0.6 (L) 1.2 - 3.4 10*3/uL MONOCYTES, ABSOLUTE 0.3 0.0 - 0.7 10*3/uL ABSOLUTE EOSINOPHIL COUNT 0.1 0.0 - 0.7 10*3/uL ABSOLUTE BASOPHIL COUNT 0.0 0.0 - 0.2 10*3/uL LACTATE, BLOOD Result Value Ref Range LACTATE 3.0 (HH) 0.7 - 2.0 mmol/L PROTIME-INR Result Value Ref Range PT 15.8 (H) 11.8 - 14.4 SEC INR 1.25 (H) 0.85 - 1.10 Radiographic Imaging US DUPLEX EXTREMITY DVT RIGHT (Results Pending) Procedures: Procedures Moderate Sedation Procedure: No ED Summary/MDM Cellulitis of the left lower leg, suspected DVT the right leg, sepsis without acute organ dysfunction, leukopenia. Review of labs, lactic acid of 3.0. CO2 31, creatinine 0.58, glucose 129 otherwise chemistries are within normal limits. PT 15.8, INR 1.25. WBC 2.9, patient has history of chronic leukopenia. Hemoglobin 10, hematocrit 31.8. Patient has history of chronic anemia. Platelets 104. ER course consisted of 1 L normal saline followed by saline at 100 mL/hr. Ordered IV vancomycin 15 milligrams/kilogram. Maxipime 2 g. Lovenox 100 mg subQ. Patient received 4 mg of morphine and 2 mg of Zofran. Tetanus shot was given. Blood cultures were ordered and are pending. Ultrasound duplex of the right extremity was ordered however unavailable for after hours scan. Tox screen was ordered and is pending. Reviewed findings with patient. Recommend hospitalization and treatment for cellulitis as well as suspected DVT, sepsis and pancytopenia. Patient was in agreement with plan of care. Hospitalist Dr. Rodríguez was contacted. Case was reviewed patient is accepted for transfer to [facility]. Patient is alert oriented stable at this time Clinical Impression: 1. Cellulitis of left lower extremity 2. Suspected DVT (deep vein thrombosis) 3. Sepsis without acute organ dysfunction, due to unspecified organism 4. Pancytopenia No follow-ups on file. New Prescriptions No medications on file Discontinued Medications No medications on file An After Visit Summary was printed and given to the patient with above information. . . Nuno Dumont, [employer] 02/26/23 [id number] Patients Daughter Ginny West [phone] notified of admission per patients request. Patient was seen by me as well as the PA all medical decision making and course was discussed with me. 57-year-old male complaining of leg swelling and pain along with skin injury to the left leg. His right leg has been more swollen. He states he has had infection in that leg in the past and does go to the [facility] and down. He states the swelling has gotten worse in the right leg. He states he has had a previous infection in that leg. He denies any shaking chills or fever. He denies any headache or neck stiffness. He denies any recent fall or weight loss. He states he is not diabetic General: Well-developed well-nourished male who appears older than stated age HENT: Head is atraumatic. Face is symmetric. Mucous membranes are hydrated Eyes: Pupils are equal. Extraocular muscles are intact Skin: Erythema is noted of the lower extremities. He does have a large skin tear of his left lower extremity. Abdomen: Soft. Obese. No distention or guarding Respiratory: . No rhonchi Heart: Heart tones are regular Neurologic: Awake, alert Lymphatic: Lymphedema noted to the lower extremities right greater than left Musculoskeletal: No obvious fracture. He does have deformity noted to the right foot which he states is due to bone abnormality that he is following Podiatry for Shai Leonard MD 02/26/232132 documented in this encounter [facility] 02-26-2023 Emergency department Note Bed assignment #208 [facility], report # [id number], RN notified. [facility] 02-26-2023 Emergency department Note [facility] called back with room assignment. Patient will go to room 208. Call [phone] for report. [facility] 02-26-2023 Emergency department Note Called dr rodríguez for nuno dumont. [facility] 02-26-2023 Emergency department Note [facility] contacted for transfer. Will call back with room assignment. [facility] 02-26-2023 Emergency department Note [address] dr rodríguez for nuno ud[place]. Left voicemail. [facility] 02-26-2023 Physician Emergency department Note Images from the original note were not included. Emergency Department Report [facility] EMERGENCY DEPARTMENT Service Date:.02/26/23 PCP: Ani Worley Chief Complaint: Chief Complaint Patient presents with Leg Swelling Bilateral leg swelling. Hit leg on bike last pm. Laceration Left lower leg. HPI Carmen Gilman is a 57 y.o. male presents to the ED today due to laceration to left lower leg. Right lower leg edema. Patient states that yesterday he cut his left lower leg on the metal pedal of a workshop bike in [place]. He has not seek care for the wound he states that he took paper towels from a [employer]'s restaurant and tape gum to his leg. Injury happened at 8:00 p.m. on 02/25/2023. Patient reports he has also had increased swelling in the right leg. He has been seen at wound center for management of an infection abscess in the right lower leg however states the swelling has recently increased. He denies any fever chills body aches. No chest pain or shortness of breath. No nausea or vomiting. He is also seeing Podiatry for a wound on the bottom of his right foot. Review of Systems: Review of Systems Constitutional: Negative. HENT: Negative. Eyes: Negative. Respiratory: Negative. Cardiovascular: Positive for leg swelling. Gastrointestinal: Negative. Endocrine: Negative. Genitourinary: Negative. Musculoskeletal: Positive for arthralgias and myalgias. Skin: Positive for wound. Allergic/Immunologic: Negative. Neurological: Negative. Hematological: Negative. Psychiatric/Behavioral: Negative. Past Medical History: Past Medical History: Diagnosis Date Asthma Essential hypertension, benign MRSA (methicillin resistant staph aureus) culture positive rt. lower posteria leg Past Surgical History: Past Surgical History: Procedure Laterality Date APPENDECTOMY BACK SURGERY FOOT SURGERY Allergies: No Known Allergies Medications: Patient's Medications New Prescriptions No medications on file Previous Medications BUPRENORPHINE 8 MG SUBLINGUAL TABLET DISSOLVE ONE TABLET UNDER THE TONGUE THREE TIMES DAILY DIAZEPAM 5 MG TABLET TAKE 1 TABLET BY MOUTH EVERY NIGHT AT BEDTIME NEEDED EPCLUSA 400-100 MG TABLET Take 1 tablet by mouth daily. FLUCONAZOLE (DIFLUCAN) 100 MG TABLET Take 1 tablet by mouth daily. FUROSEMIDE 40 MG TABLET Take 1 tablet by mouth daily. GABAPENTIN 300 MG CAPSULE TAKE ONE CAPSULE BY MOUTH FOUR TIMES DAILY GABAPENTIN 800 MG TABLET Take 1 tablet by mouth 3 times daily. GLYCOPYRROLATE-FORMOTEROL (BEVESPI AEROSPHERE) 9-4.8 MCG/ACT AEROSOL Inhale 2 puffs 2 times daily. MELOXICAM 15 MG TABLET POTASSIUM CHLORIDE 20 MEQ TAB CR TABLET Take 1 tablet by mouth 2 times daily. SPIRONOLACTONE 25 MG TABLET Take 1 tablet by mouth daily. SYMBICORT 160-4.5 MCG/ACT AEROSOL INHALER INHALE 2 PUFFS BY MOUTH TWICE DAILY Modified Medications No medications on file Discontinued Medications No medications on file Family History: Family History Problem Relation Age of Onset Heart Disease - Other Mother Diabetes Mother Heart Disease - Other Father Social History: Social History Socioeconomic History Marital status: Spouse name: Not on file Number of children: Not on file Years of education: Not on file Highest education level: Not on file Occupational History Employer: UNEMPLOYED Tobacco Use Smoking status: Former Types: Cigarettes Quit date: 2007 Years since quittin.5 Smokeless tobacco: Current Types: Chew Vaping Use Vaping Use: Never used Substance and Sexual Activity Alcohol use: Not Currently Drug use: Not Currently Types: Marijuana Comment: Former Sexual activity: Yes Partners: Female Other Topics Concern Service Not Asked Blood Transfusions Not Asked Caffeine Concern Not Asked Occupational Exposure Not Asked Hobby Hazards Not Asked Sleep Concern Not Asked Stress Concern Not Asked Weight Concern Not Asked Special Diet Not Asked Back Care Not Asked Exercise Not Asked Bike Helmet Not Asked Seat Belt Not Asked Domestic Violence No Social History Narrative Not on file Social Determinants of Health Financial Resource Strain: Not on file Food Insecurity: Not on file Transportation Needs: Not on file Physical Activity: Not on file Stress: Not on file Social Connections: Not on file Intimate Partner Violence: Not on file Housing Stability: Not on file Physical Exam: Physical Exam Vitals and nursing note reviewed. Constitutional: General: He is not in acute distress. Appearance: Normal appearance. He is obese. He is not ill-appearing or diaphoretic. HENT: Head: Normocephalic and atraumatic. Right Ear: Tympanic membrane, ear canal and external ear normal. Left Ear: Tympanic membrane, ear canal and external ear normal. Nose: Nose normal. Mouth/Throat: Mouth: Mucous membranes are moist. Eyes: Extraocular Movements: Extraocular movements intact. Conjunctiva/sclera: Conjunctivae normal. Pupils: Pupils are equal, round, and reactive to light. Pulmonary: Effort: Pulmonary effort is normal. No respiratory distress. Breath sounds: Normal breath sounds. No stridor. No wheezing, rhonchi or rales. Chest: Chest wall: No tenderness. Abdominal: General: Abdomen is flat. There is no distension. Palpations: Abdomen is soft. There is no mass. Tenderness: There is no abdominal tenderness. There is no right CVA tenderness, left CVA tenderness, guarding or rebound. Hernia: No hernia is present. Musculoskeletal: General: Normal range of motion. Cervical back: Normal range of motion and neck supple. Lymphadenopathy: Cervical: No cervical adenopathy. Skin: General: Skin is warm and dry. Capillary Refill: Capillary refill takes less than 2 seconds. Findings: Laceration and wound present. Comments: Laceration is approximately 4 cm wide by 7 cm along. Bleeding is controlled Neurological: General: No focal deficit present. Mental Status: He is alert and oriented to person, place, and time. Psychiatric: Mood and Affect: Mood normal. Vital Signs During ED Visit Patient Vitals for the past 24 hrs: BP Temp Temp src Pulse Resp SpO2 Height 02/26/23 2230 96/55 -- -- 67 19 93 % -- 02/26/23 2224 111/57 -- -- 68 19 99 % -- 02/26/232036 -- -- -- -- -- -- 1.829 m (6') 02/26/232035 118/64 97.4 F (36.3 C) Oral 78 18 95 % -- Orders/Results: Orders Placed This Encounter BLOOD CULTURE, PERIPHERAL 1ST SITE BLOOD CULTURE, PERIPHERAL 2ND SITE MRSA NASAL SWABS TO BILATERAL NARES US DUPLEX EXTREMITY DVT RIGHT COMPREHENSIVE METABOLIC PANEL MAGNESIUM CBC, EDIF, PLATELET LACTATE, BLOOD PROTIME-INR TOXICOLOGY DRUG SCREEN, URINE Sodium chloride 0.9% IV solution Ondansetron 4mg/2ml (ZOFRAN) injection 4 mg Morphine sulfate (PF) injection 4 mg Vancomycin (VANCOCIN) 1,500 mg in Sodium chloride 0.9%, with overfill 565 mL (total volume) IVPB Htikjtx-Mirqku-Xdhgh Pertussis (BOOSTRIX) syringe 0.5 mL Bacitracin ointment 1 Application Sodium chloride 0.9% IV solution 1,000 mL Enoxaparin Sodium (LOVENOX) injection 100 mg ceFEPIme (MAXIPIME) 2 g in sodium chloride 0.9% (MB PLUS) 100 mL (total volume) IVPB ceFEPIme (MAXIPIME) 2 g in sodium chloride 0.9% (MB PLUS) 100 mL (total volume) IVPB Results for orders placed or performed during the hospital encounter of 02/26/23 COMPREHENSIVE METABOLIC PANEL Result Value Ref Range Glucose 129 (H) 70 - 100 MG/DL BUN 17 7 - 20 MG/DL CREATININE SERUM 0.58 (L) 0.70 - 1.20 MG/DL SODIUM 138 137 - 145 MMOL/L POTASSIUM 3.8 3.5 - 5.1 MMOL/L CHLORIDE 100 98 - 107 MMOL/L CALCIUM 8.0 (L) 8.4 - 10.2 MG/DL PROTEIN, TOTAL 7.4 6.3 - 8.2 GM/DL Albumin 3.2 (L) 3.5 - 5.0 G/dl BILIRUBIN, TOTAL 1.1 0.2 - 1.3 MG/DL AST 26 17 - 59 IU/L ALKALINE PHOSPHATASE 54 38 - 126 IU/L CARBON DIOXIDE (CO2) 31 (H) 22 - 30 MMOL/L A/G Ratio 0.8 RATIO ALT 17 <50 IU/L ESTIMATED GFR, NON AMER 154 ml/min/1.73sq.m ESTIMATED GFR, 186 ml/min/1.73sq.m GFR COMMENT Average GFR for 50-59 years old = 93. MAGNESIUM Result Value Ref Range MAGNESIUM 1.9 1.6 - 2.3 MG/DL CBC, EDIF, PLATELET Result Value Ref Range WBC (WHITE BLOOD COUNT) 2.9 (L) 3.6 - 11.0 10*3/uL RBC 4.44 4.0 - 6.1 10*6/uL HEMOGLOBIN (HGB) 10.0 (L) 14.0 - 18.0 G/DL HEMATOCRIT (HCT) 31.8 (L) 42.0 - 52.0 % MEAN CELL VOLUME 71.5 (L) 80.0 - 100.0 FL Mean Cell HGB 22.5 (L) 26.0 - 35.0 PG MEAN CELL HGB CONCENTRATION 31.4 27.0 - 37.0 G/DL RBC DISTRIBUTION 16.6 (H) 11.5 - 14.5 % PLATELET COUNT 104 (L) 130 - 400 10*3/uL MEAN PLATELET VOLUME 8.5 7.4 - 11.0 FL DIFFERENTIAL TYPE AUTO DIFF % NEUTROPHILS 67.6 37.0 - 75.0 % LYMPHOCYTE 19.7 (L) 20.0 - 55.0 % MONOCYTE % 10.5 (H) 0.0 - 10.0 % EOSINOPHIL % 2.0 0.0 - 11.0 % BASOPHIL % 0.2 0.0 - 2.0 % Absolute Neutrophil Count 1.9 1.4 - 6.5 10*3/uL LYMPHOCYTES, ABSOLUTE 0.6 (L) 1.2 - 3.4 10*3/uL MONOCYTES, ABSOLUTE 0.3 0.0 - 0.7 10*3/uL ABSOLUTE EOSINOPHIL COUNT 0.1 0.0 - 0.7 10*3/uL ABSOLUTE BASOPHIL COUNT 0.0 0.0 - 0.2 10*3/uL LACTATE, BLOOD Result Value Ref Range LACTATE 3.0 (HH) 0.7 - 2.0 mmol/L PROTIME-INR Result Value Ref Range PT 15.8 (H) 11.8 - 14.4 SEC INR 1.25 (H) 0.85 - 1.10 Radiographic Imaging US DUPLEX EXTREMITY DVT RIGHT (Results Pending) Procedures: Procedures Moderate Sedation Procedure: No ED Summary/MDM Cellulitis of the left lower leg, suspected DVT the right leg, sepsis without acute organ dysfunction, leukopenia. Review of labs, lactic acid of 3.0. CO2 31, creatinine 0.58, glucose 129 otherwise chemistries are within normal limits. PT 15.8, INR 1.25. WBC 2.9, patient has history of chronic leukopenia. Hemoglobin 10, hematocrit 31.8. Patient has history of chronic anemia. Platelets 104. ER course consisted of 1 L normal saline followed by saline at 100 mL/hr. Ordered IV vancomycin 15 milligrams/kilogram. Maxipime 2 g. Lovenox 100 mg subQ. Patient received 4 mg of morphine and 2 mg of Zofran. Tetanus shot was given. Blood cultures were ordered and are pending. Ultrasound duplex of the right extremity was ordered however unavailable for after hours scan. Tox screen was ordered and is pending. Reviewed findings with patient. Recommend hospitalization and treatment for cellulitis as well as suspected DVT, sepsis and pancytopenia. Patient was in agreement with plan of care. Hospitalist Dr. Rodríguez was contacted. Case was reviewed patient is accepted for transfer to [facility]. Patient is alert oriented stable at this time Clinical Impression: 1. Cellulitis of left lower extremity 2. Suspected DVT (deep vein thrombosis) 3. Sepsis without acute organ dysfunction, due to unspecified organism 4. Pancytopenia No follow-ups on file. New Prescriptions No medications on file Discontinued Medications No medications on file An After Visit Summary was printed and given to the patient with above information. . . Nuno FunezMARLENY alfaroN-RODRIGUE 02/26/23 0416 [facility] 02-26-2023 Emergency department Note Patients Daughter Ginny West [phone] notified of admission per patients request. [facility] 02-26-2023 Physician Emergency department Note Patient was seen by me as well as the PA all medical decision making and course was discussed with me. 57-year-old male complaining of leg swelling and pain along with skin injury to the left leg. His right leg has been more swollen. He states he has had infection in that leg in the past and does go to the Wound Center and down. He states the swelling has gotten worse in the right leg. He states he has had a previous infection in that leg. He denies any shaking chills or fever. He denies any headache or neck stiffness. He denies any recent fall or weight loss. He states he is not diabetic General: Well-developed well-nourished male who appears older than stated age HENT: Head is atraumatic. Face is symmetric. Mucous membranes are hydrated Eyes: Pupils are equal. Extraocular muscles are intact Skin: Erythema is noted of the lower extremities. He does have a large skin tear of his left lower extremity. Abdomen: Soft. Obese. No distention or guarding Respiratory: . No rhonchi Heart: Heart tones are regular Neurologic: Awake, alert Lymphatic: Lymphedema noted to the lower extremities right greater than left Musculoskeletal: No obvious fracture. He does have deformity noted to the right foot which he states is due to bone abnormality that he is following Podiatry for Shai Leonard MD 02/26/23 5595 [facility] Work Phone: 02-15-2023 History of Present illness Narrative Patient has some ecchymotic areas on left medial ankle and foot area. History of Present Illness Patient presents to the wound clinic today for a follow up on BLE edema and wounds, secondary to CVI and lymphedema, and wound on foot, secondary to pressure injury. Patient was seen by Dr. Bryan and once lymphedema treatment is complete, we will have continue care for this wound. Patient has been in BLE unna boot compression therapy. He is to be getting his lymphedema pumps 02/28/23. He does elevate BLE often. Denies F/C/SOB/CP at this time. I have reviewed and updated the following portions of this chart as required. No Known Allergies Past Medical History: Diagnosis Date Asthma Essential hypertension, benign MRSA (methicillin resistant staph aureus) culture positive rt. lower posteria leg Past Surgical History: Procedure Laterality Date APPENDECTOMY BACK SURGERY FOOT SURGERY Family History Problem Relation Age of Onset Heart Disease - Other Mother Diabetes Mother Heart Disease - Other Father Social History Socioeconomic History Marital status: Spouse name: Not on file Number of children: Not on file Years of education: Not on file Highest education level: Not on file Occupational History Employer: UNEMPLOYED Tobacco Use Smoking status: Former Types: Cigarettes Quit date: 2007 Years since quittin.4 Smokeless tobacco: Current Types: Chew Vaping Use Vaping Use: Never used Substance and Sexual Activity Alcohol use: Not Currently Drug use: Not Currently Types: Marijuana Comment: Former Sexual activity: Yes Partners: Female Other Topics Concern Service Not Asked Blood Transfusions Not Asked Caffeine Concern Not Asked Occupational Exposure Not Asked Hobby Hazards Not Asked Sleep Concern Not Asked Stress Concern Not Asked Weight Concern Not Asked Special Diet Not Asked Back Care Not Asked Exercise Not Asked Bike Helmet Not Asked Seat Belt Not Asked Domestic Violence No Social History Narrative Not on file Social Determinants of Health Financial Resource Strain: Not on file Food Insecurity: Not on file Transportation Needs: Not on file Physical Activity: Not on file Stress: Not on file Social Connections: Not on file Intimate Partner Violence: Not on file Housing Stability: Not on file Review of Systems Constitutional: Negative for chills, diaphoresis, fatigue and fever. Respiratory: Negative for shortness of breath. Cardiovascular: Positive for leg swelling. Negative for chest pain. Musculoskeletal: Positive for arthralgias, gait problem and myalgias. Skin: Positive for color change and wound. Negative for rash. Neurological: Negative for speech difficulty. Psychiatric/Behavioral: Negative for confusion. Vitals: Blood pressure 127/78, pulse 76, temperature 97 F (36.1 C), temperature source Temporal, resp. rate 18. Physical Exam Vitals and nursing note reviewed. Constitutional: General: He is not in acute distress. Appearance: Normal appearance. He is obese. He is not ill-appearing. HENT: Head: Normocephalic and atraumatic. Cardiovascular: Comments: Pedal pulses presents. Feet warm. Pulmonary: Effort: Pulmonary effort is normal. Musculoskeletal: Right lower leg: Edema present. Left lower leg: Edema present. Skin: General: Skin is warm and dry. Findings: No erythema. Comments: Wound remains present on RLE, posterior site, and continues to improve. Wound bed is covered in red granulation tissue, with a small amount of yellow fibrotic tissue, and epithelialized tissue. There is a scant-moderate amount of serosanguineous fluid draining from site. There is no redness/warmth/foul odor noted at this time. Tiffany wound is without inflammation and/or maceration at this time. Large nodule noted to planter aspect of right foot--in arch. Wound site present, and is again measuring slightly large compared to previous visit. Site is draining a scant-moderate amount of serosanguineous fluid. No foul odor noted at this time. No maceration noted to tiffany wound at this time. Calloused skin again noted surrounding open site. No redness/warmth to site. Hemosiderin staining noted to BLE gaiter regions. Edema noted in lymphedema pattern. No open wounds noted to LLE at this time. Neurological: Mental Status: He is alert and oriented to person, place, and time. Psychiatric: Mood and Affect: Mood normal. Speech: Speech normal. Behavior: Behavior normal. Behavior is cooperative. Neurological Exam Mental Status Alert. Oriented to person, place, and time. Speech is normal. Assessment and Plan Problem List Items Addressed This Visit None Visit Diagnoses Venous stasis ulcer of right lower leg with edema of right lower leg - Primary Relevant Orders SC DRESSING CHANGE SC APPLY OF UNNA BOOT Pressure ulcer of right foot, stage 3 Chronic venous insufficiency Relevant Orders SC DRESSING CHANGE SC APPLY OF UNNA BOOT Lymphedema Relevant Orders SC DRESSING CHANGE SC APPLY OF UNNA BOOT At this time, patient desires daily compression to LLE-placed, to be removed and replaced every 1-3 days to examine leg. To RLE, we will apply zinc to posterior wound's tiffany wound, covering site with triple helix/medi honey mixture and dry dressing, securing with unna boot from ankle to below knee. To foot wound, we will continue with aquacel AG secured with tubi casing cooker. Patient encouraged to elevate BLE often, to continue with lymphedema clinic as scheduled, and to contact the clinic prior to scheduled follow up with concerns. Patient voiced understanding of all instructions. Return in about 6 days (around 02/21/2023). Per nurse Monica Randle LPN: To right posterior wound: Zinc to periwound, medihoney mixed with triple helix applied then covered with a folded 4x4 gauze and ABD. To the right foot wound: aquacel AG, ABD, Kerlix, secured with size F tubigrip. Triamincolone applied to bilateral lower extremities. Xeroform and cast padding applied below right knee. Crescent unna boot and coban applied to right leg from ankle to knee. To left leg: Double layer tubigrip size F applied. Patient tolerated well and circ check was birsk bilaterally. documented in this encounter [facility] 02-15-2023 Instructions Muna Savage RN - 02/15/2023 1:15 PM EDT Keep unna boot on right leg clean and dry. Keep the tubigrip sock on the left leg clean and dry, may remove to wash leg but put it back on. Call with any questions or concerns. documented in this encounter [facility] 02-10-2023 History of Present illness Narrative Date of Service : 02/08/2023 CHIEF COMPLAINT: New patient with a mass on his right foot. Chief Complaint Patient presents with New Patient R foot mass, open wound. 7 walking, 4 resting HISTORY: The patient is a 57-year-old male, who was seen by the Wound Center for venous stasis wounds on his legs. He does Unna boot therapy for that as well Lymphedema clinic. They have ordered compression for at home usage. He has 10/10 pain with walking, 4 with resting. On his right foot, he has a protuberance that did ulcerate under Unna boot therapy. The treatment is Aquacel on the right foot wound with Kerlix. He does have Unna boots on both of his legs, not extended to the feet today. PAST MEDICAL HISTORY: Past Medical History: Diagnosis Date Asthma Essential hypertension, benign MRSA (methicillin resistant staph aureus) culture positive rt. lower posteria leg Past Surgical History: Procedure Laterality Date APPENDECTOMY BACK SURGERY FOOT SURGERY Current Outpatient Medications: Epclusa 400-100 MG tablet, Take 1 tablet by mouth daily., Disp: , Rfl: Fluconazole (Diflucan) 100 MG tablet, Take 1 tablet by mouth daily., Disp: 7 tablet, Rfl: 0 furOSEmide 40 MG tablet, Take 1 tablet by mouth daily., Disp: 30 tablet, Rfl: 0 gabapentin 800 MG tablet, Take 1 tablet by mouth 3 times daily., Disp: 90 tablet, Rfl: 0 Glycopyrrolate-Formoterol (Bevespi Aerosphere) 9-4.8 MCG/ACT Aerosol, Inhale 2 puffs 2 times daily., Disp: 1 Inhaler, Rfl: 11 spironolactone 25 MG tablet, Take 1 tablet by mouth daily., Disp: 30 tablet, Rfl: 0 No Known Allergies Social History Socioeconomic History Marital status: Spouse name: Not on file Number of children: Not on file Years of education: Not on file Highest education level: Not on file Occupational History Employer: UNEMPLOYED Tobacco Use Smoking status: Former Types: Cigarettes Quit date: 2007 Years since quittin.4 Smokeless tobacco: Current Types: Chew Vaping Use Vaping Use: Never used Substance and Sexual Activity Alcohol use: Not Currently Drug use: Not Currently Types: Marijuana Comment: Former Sexual activity: Yes Partners: Female Other Topics Concern Service Not Asked Blood Transfusions Not Asked Caffeine Concern Not Asked Occupational Exposure Not Asked Hobby Hazards Not Asked Sleep Concern Not Asked Stress Concern Not Asked Weight Concern Not Asked Special Diet Not Asked Back Care Not Asked Exercise Not Asked Bike Helmet Not Asked Seat Belt Not Asked Domestic Violence No Social History Narrative Not on file Social Determinants of Health Financial Resource Strain: Not on file Food Insecurity: Not on file Transportation Needs: Not on file Physical Activity: Not on file Stress: Not on file Social Connections: Not on file Intimate Partner Violence: Not on file Housing Stability: Not on file Family History Problem Relation Age of Onset Heart Disease - Other Mother Diabetes Mother Heart Disease - Other Father Review of Systems Constitutional: Negative for chills, fatigue, fever and unexpected weight change. HENT: Negative for hearing loss. Respiratory: Negative for shortness of breath. Cardiovascular: Negative for chest pain. Gastrointestinal: Negative for abdominal pain and blood in stool. Endocrine: Negative for polydipsia. Genitourinary: Negative for hematuria. Musculoskeletal: Positive for arthralgias. Neurological: Negative for seizures. Hematological: Bruises/bleeds easily. Psychiatric/Behavioral: Negative for dysphoric mood. Pt does wear top dentures. PHYSICAL EXAMINATION: GENERAL: He is in no acute distress. He is alert, awake, and oriented x3. His affect is normal. His temperature is 97.8 degrees Fahrenheit. His height is 6 feet, his weight is kg. EXTREMITIES: On his right foot, medial cuneiform is displaced medially and plantarly, there is a fluctuant bursa present and a very mild amount of erythema, more reactive than infectious. There is a central opening that is ulcerative, does not probe deep. It has a granular base similar to infected bursitis. He does have palpable pedal pulses. No signs of cyanosis are present. His right foot has abducted deformity to it. X-rays taken on February 08, 2023, 3 views, nonweightbearing of the right foot, do reveal prominence of the medial cuneiform, more plantar than medial. There are arthritic changes of the foot. No fractures or dislocations are notable. No signs of Charcot. DIAGNOSES: 1. Right foot subluxed medial cuneiform. 2. Infective bursitis. PLAN: I called Nj Ayala, nurse practitioner from [facility], who has been taking care of this patient to discuss the plan of care. He has Unna boots on his legs but off at his feet. He does not have another appointment with the [facility] to have this removed until Tuesday, next week, and were adjusted on today, so I do not see any reason to remove them and apply new Unna boots. The plan discussed is to put tubigrips over top to control the swelling on the feet, in combination with Unna boots. His wounds on his legs are healing. Continue to let Nj Ayala treat the wounds on the legs. We will get them as healed as possible and then he will follow up with me again and we will discuss surgical intervention, possibly to shave down the bone, unfortunately, we will require removing the bursa as well unless they could resolve with just shaving down the bone. I do not want to do surgery while there is an open wound or while there is an open wound over that area or on the legs. I would like to minimize risk of infection as much as possible. In addition, he is not a total contact cast candidate due to the swelling in his legs. He will follow up with Nj Ayala in the [facility] on Tuesday and then he will come back to me once those leg wounds are all healed. I will put a Betadine dressing on the right foot today. We will change that on a daily basis at home. When he does follow up with the [facility] Center, the erythema should have gone down somewhat and they can change that to SilvaSorb, whenever dressing may deem appropriate. I did give him instructions to try utilizing a cane or walker to take some pressure off the right foot, it really does Require no pressure on it for it to heal. Nonweightbearing would be ideal, but the patient is not capable. In addition, we do the forefoot offloading shoes and we have heel offloading shoes, so we do not have a midfoot offloading shoe. The patient is certainly a challenging patient and I will see him back in a couple of weeks. ([id number]) Review of Systems Constitutional: Negative for chills, fatigue, fever and unexpected weight change. HENT: Negative for hearing loss. Respiratory: Negative for shortness of breath. Cardiovascular: Negative for chest pain. Gastrointestinal: Negative for abdominal pain and blood in stool. Endocrine: Negative for polydipsia. Genitourinary: Negative for hematuria. Musculoskeletal: Positive for arthralgias. Neurological: Negative for seizures. Hematological: Bruises/bleeds easily. Psychiatric/Behavioral: Negative for dysphoric mood. Pt does wear top dentures. documented in this encounter [facility] 02-08-2023 History of Present illness Narrative History of Present Illness Patient presents to the wound clinic today for a follow up on BLE edema and RLE wound, secondary to CVI and lymphedema, and foot ulcer, secondary to mass/pressure. Patient has been wrapped in BLE unna boot compression therapy and denies complaints of this therapy. He continues to see lymphedema clinic and has been contacted by agency who distributes lymphedema pumps. Patient is scheduled to see Dr. Bryan today for further evaluation of right foot mass/wound. Patient denies F/C/SOB/CP at this time. I have reviewed and updated the following portions of this chart as required. No Known Allergies Past Medical History: Diagnosis Date Asthma Essential hypertension, benign MRSA (methicillin resistant staph aureus) culture positive rt. lower posteria leg Past Surgical History: Procedure Laterality Date APPENDECTOMY BACK SURGERY FOOT SURGERY Family History Problem Relation Age of Onset Heart Disease - Other Mother Diabetes Mother Heart Disease - Other Father Social History Socioeconomic History Marital status: Spouse name: Not on file Number of children: Not on file Years of education: Not on file Highest education level: Not on file Occupational History Employer: UNEMPLOYED Tobacco Use Smoking status: Former Types: Cigarettes Quit date: 2007 Years since quittin.4 Smokeless tobacco: Current Types: Chew Vaping Use Vaping Use: Never used Substance and Sexual Activity Alcohol use: Not Currently Drug use: Not Currently Types: Marijuana Comment: Former Sexual activity: Yes Partners: Female Other Topics Concern Service Not Asked Blood Transfusions Not Asked Caffeine Concern Not Asked Occupational Exposure Not Asked Hobby Hazards Not Asked Sleep Concern Not Asked Stress Concern Not Asked Weight Concern Not Asked Special Diet Not Asked Back Care Not Asked Exercise Not Asked Bike Helmet Not Asked Seat Belt Not Asked Domestic Violence No Social History Narrative Not on file Social Determinants of Health Financial Resource Strain: Not on file Food Insecurity: Not on file Transportation Needs: Not on file Physical Activity: Not on file Stress: Not on file Social Connections: Not on file Intimate Partner Violence: Not on file Housing Stability: Not on file Review of Systems Constitutional: Negative for chills, diaphoresis, fatigue and fever. Respiratory: Negative for shortness of breath. Cardiovascular: Positive for leg swelling. Negative for chest pain. Musculoskeletal: Positive for arthralgias, gait problem and myalgias. Skin: Positive for color change and wound. Negative for rash. Neurological: Negative for speech difficulty. Psychiatric/Behavioral: Negative for confusion. Vitals: Blood pressure 142/87, pulse 70, temperature 96.9 F (36.1 C), temperature source Temporal, resp. rate 18. Physical Exam Vitals and nursing note reviewed. Constitutional: General: He is not in acute distress. Appearance: Normal appearance. He is obese. He is not ill-appearing. HENT: Head: Normocephalic and atraumatic. Cardiovascular: Comments: Pedal pulses presents. Feet warm. Pulmonary: Effort: Pulmonary effort is normal. Musculoskeletal: Right lower leg: Edema present. Left lower leg: Edema present. Skin: General: Skin is warm and dry. Findings: No erythema. Comments: Wound remains present on RLE, posterior site--improving. Site continues to measure smaller than previous visit. Wound bed is covered in red granulation tissue, with a small amount of yellow fibrotic tissue, and epithelialized tissue. There is a moderate amount of serosanguineous fluid draining from site. There is no redness/warmth/foul odor noted at this time. Tiffany wound is without inflammation and/or maceration at this time. Large nodule noted to planter aspect of right foot--in arch. Wound site present, and is again measuring slightly large compared to previous visit. Site is draining a scant-moderate amount of serosanguineous fluid. No foul odor noted at this time. No maceration noted to tiffany wound at this time, but calloused skin noted. No redness/warmth to site. Hemosiderin staining noted to BLE gaiter regions. Edema noted in lymphedema pattern. No open wounds noted to LLE at this time. Neurological: Mental Status: He is alert and oriented to person, place, and time. Psychiatric: Mood and Affect: Mood normal. Speech: Speech normal. Behavior: Behavior normal. Behavior is cooperative. Neurological Exam Mental Status Alert. Oriented to person, place, and time. Speech is normal. Assessment and Plan Problem List Items Addressed This Visit None Visit Diagnoses Venous stasis ulcer of right lower leg with edema of right lower leg - Primary Relevant Orders SC DRESSING CHANGE Chronic venous insufficiency Relevant Orders SC DRESSING CHANGE Lymphedema Relevant Orders SC DRESSING CHANGE Pressure ulcer of right foot, stage 3 Foot mass, right Relevant Orders SC DRESSING CHANGE At this time, we will apply triamcinolone cream to BLE, triple helix/medihoney mixture to RLE posterior wound, covering with aquacel extra and ABD, and then wrap patient in BLE unna boots. To right foot nodule/wound, we will apply aquacel AG, ABD, kerlix, and secure with tubi casing cooker. Patient encouraged to elevate BLE often, to continue with lymphedema clinic, to see Dr. Bryan as scheduled for further evaluation/treatment of right foot wound, and to contact the clinic with concerns. Patient voiced understanding and agreement of plan. Return in about 1 week (around 02/15/2023). Treatment completed Padmini Burton RN To right posterior leg wound, applied zinc to tiffany wound, medihoney mixed with triple helix to wound bed, folded 4x4 and ABD. To bilateral lower legs, applied triamcinolone, xeroform and cast padding to below the knees, pink unna boots and coban. From ankle to below the knee due to open area on medial aspect of right foot and patient request to left lower leg. To right foot wound Aquacel AG , ABD, Kerlix and tubi casing cooker size F. documented in this encounter [facility] 02-08-2023 Instructions Jenise Canales RN - 02/08/2023 12:45 PM EDT Follow up in one week, keep your unna boots clean and dry, continue to follow up with all your scheduled appointments. Call with any questions or concerns. documented in this encounter [facility] 01-26-2023 History of Present illness Narrative HPI Carmen Gilman 57 y.o. male presents today for Follow-up (Hep C) The patient was referred for hepatitis C management. He has a history of hepatitis C for over 10 years and history of alcohol as well as drug use. Patient has a history of THC/marijuana as well as cocaine use. Patient has bilateral leg edema with history of right lower extremity ulcer, obesity, cirrhosis, pancytopenia, asthma, malnutrition, with a history of staph aureus colonization Patient was referred to infectious disease clinic 06/09 for history of hepatitis B and hepatitis C. Patient states recent history of admission to [facility] for falls. Patient had CT scan in April 2022 showing hepatosplenomegaly and varices. He denies a history of GI bleed to his recollection. Patient states he does not recall ever having an EGD. Unclear if he has had a history of encephalopathy or ascites. ID consult 06/09/2022 for hepatitis C management. Patient denies current drug use except for intermittent marijuana. Denies any tobacco or alcohol use which he states he quits. No current nausea, vomiting, jaundice or abdominal discomfort at initial consult date. Patient is intentionally losing weight. Trying to get his health back according to his report. ID clinic consult 06/09 Follow-up in ID clinic 06/23, labs were obtained during last visit and discussed with patient. Patient does have cirrhosis with underlying varices on imaging but otherwise does not have severe LFT or INR abnormalities. Patient denies any abdominal pain, nausea or vomiting, fevers, hematemesis, belly swelling or confusion. Denies any alcohol drugs or tobacco use. Here to discuss hepatitis C treatment regimens/plans. ID clinic appointment 07/07 and patient had referral to [facility] for medications. According to report, he did not want to speak with them however they were connected today during clinic to discuss treatment and to get to the patient the hepatitis C medication. Patient denies any abdominal pain. Has had some upper respiratory symptoms and states his grandson was also sick with a respiratory virus. Patient is having wheezing and states he needs to get an inhaler. No fevers or chills reported. No specific shortness of breath noted. Follow-up appointment 08/25. Patient did receive hepatitis C treatment on 08/23. [facility] and began to take. No current side effects at this time except for fatigue. Patient denies any nausea, vomiting, abdominal pain. No hematemesis or blood loss. No fevers or chills. Patient continues to get treated for right lower extremity wound and is seeing a consulting group analyst in [place] Dr. Pelayo with improvement over time reported. Patient complains of diffuse joint pain which is ongoing but not associated with recent start of hepatitis C treatment. Patient endorses ongoing intentional weight loss. Follow-up appointment 09/29, patient is on hepatitis C therapy and is on second month. Patient states he is tolerating this well without issues. Patient is walking better. Still with fatigue. No significant GI complaints. Has more energy. No fevers or chills. Was then able to get his hepatitis C therapy this weekend as he missed the [employer] truck and so missed one dose of treatment but otherwise states excellent compliance. Appt in ID 10/27, he is tolerating HCV med and having no complaints. Did walk in rain and developed bronchitis and did receive two abx injections per his report. RLE wound that he is managing at home with dressing changes daily. Had EGD done. No bleeding or stomach issues. Follow-up evaluation 11/03, patient continues to be on hepatitis C treatment without issues. Continues to have right lower leg wound with drainage noted. No fevers chills or sweats. Labs were reviewed today and discussed with all questions answered. Appt . Infectious disease clinic 11/24. Patient is sleepy today., patient states he has been up early this morning with various insurance. Patient is seeing wound care clinic and getting Unna boots placed every week and these are left on through the week. Notes that his swelling and weight have improved. No known insurance for infection. Patient tolerating and taking hepatitis C therapy without issue. Discussed with him repeat labs and timing of conclusion. Patient's main concern today is over a week history of inability to use his right hand. Patient states he woke up one morning and she was not able to grasp objects and he had hand weakness without weakness or sensation changes elsewhere. Patient concerned that this may have something to do with his potassium levels or if he had a stroke. Infectious disease follow-up 12/08, patient remains on hep C meds. 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 Patient also being followed with wound care center and has Unna boot in place. Patient states he is tolerating his meds for hepatitis C well and may miss a dose every week or last but overall being compliant otherwise. No abdominal pain. Still with ongoing right hand weakness and has not followed up on getting a CT of his head done yet and this was discussed. ID appt on 01/26. Has unna boots and seen on 01/25 at wound clinic. Has new open wound reported on RLE and is being referred to podiatry And also starting on antibiotics according to the wound care center visit yesterday per patient history; note in chart is currently pending. On epclusa without issue. Has missed 1-2 doses in last month. Plans to finish therapy in approximately 1 more month for 6 month course. ROS No notes on file HISTORY/ALLERGIES/MEDS No Known Allergies Past Medical History: Diagnosis Date Asthma Essential hypertension, benign MRSA (methicillin resistant staph aureus) culture positive rt. lower posteria leg Past Surgical History: Procedure Laterality Date APPENDECTOMY BACK SURGERY FOOT SURGERY Social History Socioeconomic History Marital status: Spouse name: Not on file Number of children: Not on file Years of education: Not on file Highest education level: Not on file Occupational History Employer: UNEMPLOYED Tobacco Use Smoking status: Former Types: Cigarettes Quit date: 2007 Years since quittin.4 Smokeless tobacco: Current Types: Chew Vaping Use Vaping Use: Never used Substance and Sexual Activity Alcohol use: Not Currently Drug use: Not Currently Types: Marijuana Comment: Former Sexual activity: Yes Partners: Female Other Topics Concern Service Not Asked Blood Transfusions Not Asked Caffeine Concern Not Asked Occupational Exposure Not Asked Hobby Hazards Not Asked Sleep Concern Not Asked Stress Concern Not Asked Weight Concern Not Asked Special Diet Not Asked Back Care Not Asked Exercise Not Asked Bike Helmet Not Asked Seat Belt Not Asked Domestic Violence No Social History Narrative Not on file Social Determinants of Health Financial Resource Strain: Not on file Food Insecurity: Not on file Transportation Needs: Not on file Physical Activity: Not on file Stress: Not on file Social Connections: Not on file Intimate Partner Violence: Not on file Housing Stability: Not on file Family History Problem Relation Age of Onset Heart Disease - Other Mother Diabetes Mother Heart Disease - Other Father Current Outpatient Medications: Cefdinir (OMNICEF) 300 MG capsule, Take 1 capsule by mouth every 12 hours for 7 days., Disp: 14 capsule, Rfl: 0 Epclusa 400-100 MG tablet, Take 1 tablet by mouth daily., Disp: , Rfl: Fluconazole (Diflucan) 100 MG tablet, Take 1 tablet by mouth daily., Disp: 7 tablet, Rfl: 0 Glycopyrrolate-Formoterol (Bevespi Aerosphere) 9-4.8 MCG/ACT Aerosol, Inhale 2 puffs 2 times daily., Disp: 1 Inhaler, Rfl: 11 furOSEmide 40 MG tablet, Take 1 tablet by mouth daily., Disp: 30 tablet, Rfl: 0 gabapentin 800 MG tablet, Take 1 tablet by mouth 3 times daily., Disp: 90 tablet, Rfl: 0 spironolactone 25 MG tablet, Take 1 tablet by mouth daily., Disp: 30 tablet, Rfl: 0 EXAM BP 134/64 (BP Location: Left arm, BP Position: Sitting) Pulse 93 Temp 98.5 F (36.9 C) (Temporal) Resp 16 Ht 1.829 m (6') Wt 100.2 kg (221 lb) SpO2 93% BMI 29.97 kg/m Smoking Status Former Physical Exam Vitals and nursing note reviewed. Constitutional: General: He is not in acute distress. Appearance: He is obese. He is not toxic-appearing. Comments: Sleepy, severe dental disease HENT: Head: Normocephalic and atraumatic. Mouth/Throat: Pharynx: Oropharynx is clear. No oropharyngeal exudate. Eyes: Extraocular Movements: Extraocular movements intact. Conjunctiva/sclera: Conjunctivae normal. Pupils: Pupils are equal, round, and reactive to light. Cardiovascular: Rate and Rhythm: Normal rate and regular rhythm. Pulses: Normal pulses. Heart sounds: No murmur heard. Pulmonary: Effort: Pulmonary effort is normal. No respiratory distress. Breath sounds: Normal breath sounds. No rhonchi or rales. Abdominal: General: Bowel sounds are normal. There is no distension. Palpations: Abdomen is soft. There is no mass. Tenderness: There is no abdominal tenderness. There is no guarding. Genitourinary: Comments: No suprapubic tenderness Musculoskeletal: General: No swelling or tenderness. Normal range of motion. Cervical back: Normal range of motion. No rigidity. Right lower leg: Edema present. Left lower leg: Edema present. Comments: Unna boots bilaterally Skin: General: Skin is warm. Findings: No rash. Neurological: General: No focal deficit present. Right hand and wrist Improving strength and range of motion noted; does have mild tremor of upper extremities Mental Status: He is alert. Psychiatric: Mood and Affect: Mood normal. Behavior: Behavior normal. Thought Content: Thought content normal. Laboratories: CBC Lab Results Component Value Date WBC 2.8 (L) 11/29/2022 HGB 10.7 (L) 11/29/2022 HCT 33.8 (L) 11/29/2022 PLATELET 106 (L) 11/29/2022 MCV 71.4 (L) 11/29/2022 EDIF Lab Results Component Value Date RBCDISTRIBU 15.2 (H) 11/29/2022 EOSINOPHILS 1.8 11/29/2022 EOSINOPHILS 0.0 11/29/2022 BASOPHILS 0.4 11/29/2022 BASOPHILS 0.0 11/29/2022 LYMPHOCYTABS 0.6 (L) 11/29/2022 PLATELET 106 (L) 11/29/2022 MPV 8.5 11/29/2022 Lab Results Component Value Date SODIUM 136 11/29/2022 POTASSIUM 4.4 11/29/2022 CHLORIDE 99 11/29/2022 CO2 31 (H) 11/29/2022 BUN 15 11/29/2022 CREATSERUM 0.59 (L) 11/29/2022 GLUCOSE 103 (H) 11/29/2022 Hepatitis serology results: immune to hepatitis A and hepatitis B HIV results: negative Hepatitis C viral load: 440,000 on April 26, 2022 Hepatitis C genotype:3 Imagin. No thoracic traumatic injury. 2. No acute cardiopulmonary process. 3. Periesophageal varices related to portal hypertension. ABDOMEN/PELVIS: 1. Hepatosplenomegaly and cirrhotic liver, stable. No focal hepatic lesion. 2. Perihepatic ascites and mild periportal adenopathy. 3. Stable compression deformity at L2. No acute osseous injury. 4. Prior appendectomy. 5. Tavera catheter in place. [employer] Workstation ID: [id number] Narrative EXAMINATION: CT CHEST ABDOMEN PELVIS WITHOUT CONTRAST HISTORY: ORDERING SYSTEM PROVIDED HISTORY: Fall; Abdominal Pain; Sepsis of unknown origin, TECHNOLOGIST PROVIDED HISTORY: Illness/Other Reason for exam: Fall, abdominal pain, sepsis of unknown origin Encounter Type: Subsequent/Follow-up Additional signs and symptoms: ORDERING SYSTEM PROVIDED DIAGNOSIS CODES: I63.9 Cerebrovascular accident (CVA), unspecified mechanism ([facility]) N17.9 Acute renal failure, unspecified acute renal failure type ([facility]) A41.9 Sepsis, due to unspecified organism, unspecified whether acute organ dysfunction present ([facility]) L03.119 Cellulitis of lower extremity, unspecified laterality I95.9 Hypotension, unspecified hypotension type COMPARISON: Chest x-ray 04/24/2022, pelvis and left femur x-rays 04/24/2022. Chest, abdomen and pelvis CT 06/03/2021. TECHNIQUE: Unenhanced helical imaging of the chest, abdomen, and pelvis is performed. Multiplanar reformatted images as well as coronal and sagittal MIP (maximum intensity projection) images are submitted. Dose reduction techniques were achieved by using: automated exposure control and/or adjustment of mA and/or kV according to patient size and/or use of iterative reconstruction technique. FINDINGS: CHEST: MEDIASTINUM: Cardiac size is normal. There is no pericardial effusion. The thoracic aorta is intact with normal origins of the great vessels. The esophagus is normal. Central airways are patent. No mediastinal or hilar adenopathy. The imaged thyroid is within normal limits. Periesophageal varices are noted. LUNGS AND PLEURA: Trace pleural effusions and minimal basilar atelectasis. Lungs are clear. No suspicious pulmonary nodules. OSSEOUS STRUCTURES: No acute osseous abnormality. No osseous injury. SOFT TISSUES: Bilateral left greater than right gynecomastia. ABDOMEN: SOLID ORGANS: The liver is cirrhotic and enlarged. The spleen is also markedly enlarged. No focal hepatic lesion. The hepatic density is normal. Gallbladder, biliary ducts, adrenal glands, kidneys, pancreas are all within normal limits. No renal calculi or hydronephrosis. BOWEL: The stomach, proximal small bowel and imaged portions of the colon are normal in course and caliber. No bowel wall thickening or pneumatosis. MESENTERY AND RETROPERITONEUM: Mildly enlarged gastrohepatic ligament and periportal lymph nodes. No mesenteric or retroperitoneal adenopathy. OSSEOUS STRUCTURES: Lower lumbar spine degenerative disease. Stable compression deformity of L2. No acute osseous injury. ABDOMINAL WALL AND SOFT TISSUES: No acute abnormality. PELVIS: GENITOURINARY: The distal ureters, urinary bladder, prostate and seminal vesicles are intact. Tavera catheter in place. There are no distal urinary tract calculi. VASCULATURE: Noncontrast exam. No atherosclerotic disease. BOWEL: Distal small bowel, rectosigmoid colon, cecum, imaged ascending colon are intact. No bowel wall thickening. Prior appendectomy. MESENTERY: No free fluid, fluid collection or adenopathy. OSSEOUS STRUCTURES: No acute osseous injury. Diagnosis/Plan: There are no diagnoses linked to this encounter. Hepatitis C -Patient counselled to Avoid hepatotoxins and avoidance of EtOH; patient states he currently is not drinking -Recommended patient to avoid behaviors to reduce transmission 2 others: do not donate blood/tissue/semen & do not share razors, clippers, toothbrushes or items that may have been contaminated with blood. -Recommend that any close contacts who could have been exposed to of the patient s blood to be screened for hepatitis C and this was discussed with the patient - INR 1.16 mildly elevated, fibrosure 0.78 consistent with cirrhosis, alpha-fetoprotein which was normal -NS5A genotype 3 resistance testing: negative -Patient does have likely decompensated cirrhosis given varices noted. -Referral to GI clinic for EGD and assistance with management of end-stage liver disease placed on 06/09; still awaiting follow-up visit and this will be checked on to try to facilitate -CTP grade of 6 (additional point for low albumin) -per guidelines for patients with decompensated cirrhosis with genotype 1-6 who cannot utilize ribavarin in this case due to already notable cytopenias daily fixed dosing of sofosbuvir 400mg/velpatasvir 100mg (epclusa) x 24 weeks has a 1A rating. -Continue epclusa 08/23/22-current x 24 weeks; has 1 more month - liver function test 10/27 and 11/29 with VL ND, follow-up labs for January pending -Repeat LFTs and hepatitis C viral load monthly ongoing Cirrhosis/possible esophageal varices -Patient has seen GI specialist -Testing including ISSAC, Anca, teddy, antimitochondrial antibody, EBV, CMV, ceruloplasmin were normal -EGD with varices, managed by GI Fatigue -This is Likely multifactorial -Recommend taking hepatitis C treatment daily at bedtime to try to reduce the medications impact -Improving Joint pains -Suspect this is related to chronic arthritis, degenerative disease -Discussed with patient to avoid NSAIDs and Tylenol -Recommend following up with primary Positive hepatitis B core antibody -Patient is surface antibody positive but surface antigen negative -Obtained hepatitis B DNA level 06/09 which was negative -planned for follow-up testing once hepatitis C treatment is started, and this was performed on 09/13 and hepatitis B DNA remains undetectable, f/up 10/27 not detectable and LFTs ALT/AST normal on hepatitis C treatment Drug use -Recommend ongoing cessation, patient on cessation medication,he denies any recent use Health care maintenance -Patient is immune against hepatitis A and hepatitis B based on serologies -Recommend influenza, coronavirus, shingles, pneumococcal vaccinations but the patient has deferred previously History of alcohol abuse -Currently off of alcohol K -On supplement Pancytopenia -CBC with pancytopenia 04/30/2022 -Would not recommend pursuing ribavirin given low hemoglobin/blood cell counts -Folate and B12 levels 04/26/22 normal -white count 2.9, 3.2, 2.8/ hemoglobin 10.2,10.6, 10.7/ platelets 108, 117, 106 -patient seeing student services vice president Dr Dahl -Positive testing for positive platelet antibodies IIB/IIIA, possible ITP -Possible thalassemia, electrophoresis is pending Obesity -Patient with ongoing efforts to lose weight -BMI 30.4, 31.2, 31.6, 31.4, 29.9 Right lower extremity wound/feet& toe deformities -Patient sees podiatry Dr. Pelayo in [facility] -Placed c/s for podiatry pending and seeing wound care - seeing wound care and has unnaboots in place -Prior cx 12/28 with enterococcus -Open area and seen wound care 01/25 - no cultures; placed on cefdinir by wound care 01/25 Right hand weakness -No trauma noted, does have notable weak left is extensor, fingers and wrist area -Obtain head CT which was ordered stat however patient has deferred getting tests performed today and wishes to come back different day although I recommended it to be performed today to rule out TRAIN [employer]NER event; on follow-up, patient still has not gotten testing done and this will be rescheduled -X-ray shows degenerative changes but this likely does not explain his findings or acuity of presentation -Improved Incarceration history -Patient concerned that he may have been exposed to tuberculosis and TB testing was requested and ordered Patient to follow-up within 4-6 weeks, earlier with new issues [address] Nathan Hayden documented in this encounter [facility] 01-25-2023 History of Present illness Narrative History of Present Illness Patient presents to the wound clinic today for a follow up on BLE edema, and RLE wound, secondary to CVI and lymphedema. Patient was able to make it lymphedema clinic appt today. He has been in BLE unna boot compression therapy and denies complaints of this therapy. Patient notes that chronic nodule to right arch now presents with a wound present. Denies F/C/SOB/cP at this time. I have reviewed and updated the following portions of this chart as required. No Known Allergies Past Medical History: Diagnosis Date Asthma Essential hypertension, benign MRSA (methicillin resistant staph aureus) culture positive rt. lower posteria leg Past Surgical History: Procedure Laterality Date APPENDECTOMY BACK SURGERY FOOT SURGERY Family History Problem Relation Age of Onset Heart Disease - Other Mother Diabetes Mother Heart Disease - Other Father Social History Socioeconomic History Marital status: Spouse name: Not on file Number of children: Not on file Years of education: Not on file Highest education level: Not on file Occupational History Employer: UNEMPLOYED Tobacco Use Smoking status: Former Types: Cigarettes Quit date: 2007 Years since quittin.4 Smokeless tobacco: Current Types: Chew Vaping Use Vaping Use: Never used Substance and Sexual Activity Alcohol use: Not Currently Drug use: Not Currently Types: Marijuana Comment: Former Sexual activity: Yes Partners: Female Other Topics Concern Service Not Asked Blood Transfusions Not Asked Caffeine Concern Not Asked Occupational Exposure Not Asked Hobby Hazards Not Asked Sleep Concern Not Asked Stress Concern Not Asked Weight Concern Not Asked Special Diet Not Asked Back Care Not Asked Exercise Not Asked Bike Helmet Not Asked Seat Belt Not Asked Domestic Violence No Social History Narrative Not on file Social Determinants of Health Financial Resource Strain: Not on file Food Insecurity: Not on file Transportation Needs: Not on file Physical Activity: Not on file Stress: Not on file Social Connections: Not on file Intimate Partner Violence: Not on file Housing Stability: Not on file Review of Systems Constitutional: Negative for chills, diaphoresis, fatigue and fever. Respiratory: Negative for shortness of breath. Cardiovascular: Positive for leg swelling. Negative for chest pain. Musculoskeletal: Positive for arthralgias, gait problem and myalgias. Skin: Positive for color change and wound. Negative for rash. Neurological: Negative for speech difficulty. Psychiatric/Behavioral: Negative for confusion. Vitals: Blood pressure 132/82, pulse 82, temperature 96 F (35.6 C), temperature source Temporal, resp. rate 19. Physical Exam Vitals and nursing note reviewed. Constitutional: General: He is not in acute distress. Appearance: Normal appearance. He is obese. He is not ill-appearing. HENT: Head: Normocephalic and atraumatic. Cardiovascular: Comments: Pedal pulses presents. Feet warm. Pulmonary: Effort: Pulmonary effort is normal. Musculoskeletal: Right lower leg: Edema present. Left lower leg: Edema present. Skin: General: Skin is warm and dry. Findings: No erythema. Comments: Wound remains present on RLE, posterior site. Site is measuring slightly smaller compared to previous visit. Site is much healthier appearing compared to previous visit. Wound bed is covered in red granulation tissue, with a small amount of yellow fibrotic tissue. There is a moderate amount of serosanguineous fluid draining from site. There is no redness/warmth/foul odor noted at this time. Tiffany wound is without inflammation and/or maceration at this time. There continues to be a large nodule noted to planter aspect of right foot--in arch. This site now has an open site noted. Site is draining a scant amount of serosanguineous fluid. No foul odor noted at this time. Hemosiderin staining noted to BLE gaiter regions. Edema noted in lymphedema pattern. No open wounds noted to LLE at this time. Neurological: Mental Status: He is alert and oriented to person, place, and time. Psychiatric: Mood and Affect: Mood normal. Speech: Speech normal. Behavior: Behavior normal. Behavior is cooperative. Neurological Exam Mental Status Alert. Oriented to person, place, and time. Speech is normal. Assessment and Plan Problem List Items Addressed This Visit None Visit Diagnoses Venous stasis ulcer of right lower leg with edema of right lower leg - Primary Relevant Orders SC APPLY OF UNNA BOOT SC DRESSING CHANGE Chronic venous insufficiency Relevant Orders SC APPLY OF UNNA BOOT SC DRESSING CHANGE Lymphedema Relevant Orders SC APPLY OF UNNA BOOT SC DRESSING CHANGE Foot mass, right Relevant Orders AMB REFERRAL TO PODIATRY SC APPLY OF UNNA BOOT SC DRESSING CHANGE At this time, we will apply triamcinolone cream to BLE, zinc barrier cream to LLE posterior tiffany wound, applying triple helix and medihoney to wound bed, covering with folded 4x4 and ABD--secured with RLE unna boot. To right arch, we will apply aquacel AG and ABD, securing with tubi casing cooker. Referral will be made to DR. Bryan for further evaluation and treatment of right foot mass/wound. To LLE, we will apply an unna boot for compression therapy. Patient advised to elevate BLE when able, to continue with lymphedema clinic, to follow up with Dr. Hayden as scheduled, to schedule with Dr. Bryan, and to contact the wound clinic with any concerns prior to scheduled follow up. Patient voiced understanding and agreement of plan. Return in about 1 week (around 02/01/2023). Treatment completed Deborah MENDOZA. To right posterior leg wound, applied zinc to tiffany wound, medihoney mixed with triple helix to wound bed, folded 4x4 and ABD. To bilateral lower legs, applied triamcinolone, xeroform and cast padding to below the knees, pink unna boots and coban. Right leg unna is ankle to below the knee due to open area on medial aspect of right foot. To right foot wound Aquacel AG , ABD, Kerlix and tubi casing cooker. Referral to Dr Bryan documented in this encounter [facility] 01-25-2023 Instructions Jenise Canales RN - 01/25/2023 2:15 PM EDT senior support analyst your antibiotic today, keep your unna boots clean and dry, follow up with DR Bryan when scheduled for foot wound. documented in this encounter [facility] 01-18-2023 History of Present illness Narrative History of Present Illness Patient presents to the wound clinic today for a follow up on BLE edema and RLE wound, secondary to CVI and lymphedema. Patient missed his lymphedema appt today. He is elevating BLE often. Denies F/C/SOB/CP at this time. I have reviewed and updated the following portions of this chart as required. No Known Allergies Past Medical History: Diagnosis Date Asthma Essential hypertension, benign MRSA (methicillin resistant staph aureus) culture positive rt. lower posteria leg Past Surgical History: Procedure Laterality Date APPENDECTOMY BACK SURGERY FOOT SURGERY Family History Problem Relation Age of Onset Heart Disease - Other Mother Diabetes Mother Heart Disease - Other Father Social History Socioeconomic History Marital status: Spouse name: Not on file Number of children: Not on file Years of education: Not on file Highest education level: Not on file Occupational History Employer: UNEMPLOYED Tobacco Use Smoking status: Former Types: Cigarettes Quit date: 2007 Years since quittin.4 Smokeless tobacco: Current Types: Chew Vaping Use Vaping Use: Never used Substance and Sexual Activity Alcohol use: Not Currently Drug use: Not Currently Types: Marijuana Comment: Former Sexual activity: Yes Partners: Female Other Topics Concern Service Not Asked Blood Transfusions Not Asked Caffeine Concern Not Asked Occupational Exposure Not Asked Hobby Hazards Not Asked Sleep Concern Not Asked Stress Concern Not Asked Weight Concern Not Asked Special Diet Not Asked Back Care Not Asked Exercise Not Asked Bike Helmet Not Asked Seat Belt Not Asked Domestic Violence No Social History Narrative Not on file Social Determinants of Health Financial Resource Strain: Not on file Food Insecurity: Not on file Transportation Needs: Not on file Physical Activity: Not on file Stress: Not on file Social Connections: Not on file Intimate Partner Violence: Not on file Housing Stability: Not on file Review of Systems Constitutional: Negative for chills, diaphoresis, fatigue and fever. Respiratory: Negative for shortness of breath. Cardiovascular: Positive for leg swelling. Negative for chest pain. Musculoskeletal: Positive for arthralgias, gait problem and myalgias. Skin: Positive for color change and wound. Negative for rash. Neurological: Negative for speech difficulty. Psychiatric/Behavioral: Negative for confusion. Vitals: Blood pressure 108/66, pulse 73, temperature 97.6 F (36.4 C), temperature source Temporal, resp. rate 19. Physical Exam Vitals and nursing note reviewed. Constitutional: General: He is not in acute distress. Appearance: Normal appearance. He is obese. He is not ill-appearing. HENT: Head: Normocephalic and atraumatic. Cardiovascular: Comments: Pedal pulses presents. Feet warm. Pulmonary: Effort: Pulmonary effort is normal. Musculoskeletal: Right lower leg: Edema present. Left lower leg: Edema present. Skin: General: Skin is warm and dry. Findings: No erythema. Comments: Wound remains present on RLE, posterior site. Site is measuring slightly smaller compared to previous visit. Site is covered in yellow fibrotic tissue, with a few granulation buds noted. There is a moderate amount of serosanguineous fluid draining from site. There is no redness/warmth/foul odor noted at this time. Tiffany wound is without inflammation and/or maceration at this time. There continues to be a large nodule noted to planter aspect of right foot--in arch. Hemosiderin staining noted to BLE gaiter regions. Edema noted in lymphedema pattern. No open wounds noted to LLE at this time. Neurological: Mental Status: He is alert and oriented to person, place, and time. Psychiatric: Mood and Affect: Mood normal. Speech: Speech normal. Behavior: Behavior normal. Behavior is cooperative. Neurological Exam Mental Status Alert. Oriented to person, place, and time. Speech is normal. Assessment and Plan Problem List Items Addressed This Visit None Visit Diagnoses Venous stasis ulcer of right lower leg with edema of right lower leg - Primary Relevant Orders SC DRESSING CHANGE SC APPLY OF UNNA BOOT Chronic venous insufficiency Relevant Orders SC DRESSING CHANGE SC APPLY OF UNNA BOOT Lymphedema At this time, we will apply zinc barrier cream to tiffany wound, triamcinolone cream to BLE, medihoney with triple helix and dry dressing to RLE wound, and wrap patient in a BLE unna boots. Patient encouraged to elevate BLE often, to present to lymphedema clinic as scheduled, and to contact the clinic with any concerns. Patient voiced understanding of all instructions. Return in about 1 week (around 01/25/2023). Cetacaine spray prior to debridement of right posterior leg by Nj Ayala CNP with #3 curette. See debridement flow sheet. No graft application this week. Treatment completed by Jenise Burton RN. To right posterior leg wound, applied zinc to tiffany wound, medihoney mixed with triple helix to wound bed, folded 4x4 and ABD. To bilateral lower legs, applied triamcinolone, xeroform and cast padding to below the knees, pink unna boots and coban. Cap refill brisk. Patient tolerated well. documented in this encounter [facility] 01-18-2023 Instructions Jenise Canales RN - 01/18/2023 2:45 PM EDT Keep your unna boots clean and dry. Call the wound clinic with questions or concerns. Keep your lymphedema appointment. documented in this encounter [facility] 01-18-2023 Procedure note Associated Ord er(s): WOUND DEBRIDEMENT Post-Procedure Diagnose(s): Venous stasis ulcer of right lower leg with edema of right lower leg WOUND DEBRIDEMENT Performed by: KIEL Hoff Authorized by: KIEL Hoff Pre-Procedure Details: Consent: Informed consent was obtained prior to the procedure after discussion of the risks, benefits, and alternatives and expected outcomes were discussed with the patient; consent placed in chart. The possibilities of reaction to medication, pulmonary aspiration, bleeding, infection, the need for additional procedures, failure to diagnosis a condition, and creating a complication requiring transfusion or operation were discussed with the patient. The patient concurred with the proposed plan, giving informed consent. [place] Protocol required: Yes. [place] Protocol is required. Preprocedure verification is complete - patient verified and consents confirmed Local anesthetic: Benzocaine spray mL of local anesthetic: 1 Procedure Details: Technique: Clean Type: selective Method: SharpCurette 3mm was used to complete the debridement. Hemostasis obtained with: Direct pressureTissue and other material debrided included devitalized tissue and necrotic debris. Dressing: medihoney with triple helix, dry dressing. Post-debridement length (cm): 2 Post-debridement width (cm): 2.1 Post-debridement depth (cm): 0.1 Percent debrided: 50% Calc area (cm^2): 4.2 Calculated area debrided (cm^2): 2.1 Calculated volume debrided (cm^3): 0.42 Post-Procedure Details: Estimated blood loss: Minimal Response to treatment: Procedure was tolerated well Complications: None [facility] 01-18-2023 Procedure note Associated Ord er(s): WOUND DEBRIDEMENT Post-Procedure Diagnose(s): Venous stasis ulcer of right lower leg with edema of right lower leg WOUND DEBRIDEMENT Performed by: KIEL Hoff Authorized by: KIEL Hoff Pre-Procedure Details: Consent: Informed consent was obtained prior to the procedure after discussion of the risks, benefits, and alternatives and expected outcomes were discussed with the patient; consent placed in chart. The possibilities of reaction to medication, pulmonary aspiration, bleeding, infection, the need for additional procedures, failure to diagnosis a condition, and creating a complication requiring transfusion or operation were discussed with the patient. The patient concurred with the proposed plan, giving informed consent. [place] Protocol required: Yes. [place] Protocol is required. Preprocedure verification is complete - patient verified and consents confirmed Local anesthetic: Benzocaine spray mL of local anesthetic: 1 Procedure Details: Technique: Clean Type: selective Method: SharpCurette 3mm was used to complete the debridement. Hemostasis obtained with: Direct pressureTissue and other material debrided included devitalized tissue and necrotic debris. Dressing: medihoney with triple helix, dry dressing. Post-debridement length (cm): 2 Post-debridement width (cm): 2.1 Post-debridement depth (cm): 0.1 Percent debrided: 50% Calc area (cm^2): 4.2 Calculated area debrided (cm^2): 2.1 Calculated volume debrided (cm^3): 0.42 Post-Procedure Details: Estimated blood loss: Minimal Response to treatment: Procedure was tolerated well Complications: None documented in this encounter [facility] 12-28-2022 History of Present illness Narrative History of Present Illness Patient presents to the wound clinic today for a follow up on BLE and wounds of RLE, secondary to CVI and lymphedema. Patient has been wrapped in BLE unna boot compression therapy and denies complaints of this therapy. He elevates BLE often. He missed his lymphedema appt today. Denies F/C/SOB/CP at this time. I have reviewed and updated the following portions of this chart as required. No Known Allergies Past Medical History: Diagnosis Date Asthma Essential hypertension, benign MRSA (methicillin resistant staph aureus) culture positive rt. lower posteria leg Past Surgical History: Procedure Laterality Date APPENDECTOMY BACK SURGERY FOOT SURGERY Family History Problem Relation Age of Onset Heart Disease - Other Mother Diabetes Mother Heart Disease - Other Father Social History Socioeconomic History Marital status: Spouse name: Not on file Number of children: Not on file Years of education: Not on file Highest education level: Not on file Occupational History Employer: UNEMPLOYED Tobacco Use Smoking status: Former Types: Cigarettes Quit date: 2007 Years since quittin.3 Smokeless tobacco: Current Types: Chew Vaping Use Vaping Use: Never used Substance and Sexual Activity Alcohol use: Not Currently Drug use: Not Currently Types: Marijuana Comment: Former Sexual activity: Yes Partners: Female Other Topics Concern Service Not Asked Blood Transfusions Not Asked Caffeine Concern Not Asked Occupational Exposure Not Asked Hobby Hazards Not Asked Sleep Concern Not Asked Stress Concern Not Asked Weight Concern Not Asked Special Diet Not Asked Back Care Not Asked Exercise Not Asked Bike Helmet Not Asked Seat Belt Not Asked Domestic Violence No Social History Narrative Not on file Social Determinants of Health Financial Resource Strain: Not on file Food Insecurity: Not on file Transportation Needs: Not on file Physical Activity: Not on file Stress: Not on file Social Connections: Not on file Intimate Partner Violence: Not on file Housing Stability: Not on file Review of Systems Constitutional: Negative for chills, diaphoresis, fatigue and fever. Respiratory: Negative for shortness of breath. Cardiovascular: Positive for leg swelling. Negative for chest pain. Musculoskeletal: Positive for arthralgias, gait problem and myalgias. Skin: Positive for color change and wound. Negative for rash. Neurological: Negative for speech difficulty. Psychiatric/Behavioral: Negative for confusion. Vitals: Blood pressure 125/81, pulse 73, temperature 96.6 F (35.9 C), temperature source Temporal, resp. rate 20. Physical Exam Vitals and nursing note reviewed. Constitutional: General: He is not in acute distress. Appearance: Normal appearance. He is obese. He is not ill-appearing. HENT: Head: Normocephalic and atraumatic. Cardiovascular: Comments: Pedal pulses presents. Feet warm. Pulmonary: Effort: Pulmonary effort is normal. Musculoskeletal: Right lower leg: Edema present. Left lower leg: Edema present. Skin: General: Skin is warm and dry. Findings: No erythema. Comments: Wound still present on RLE, posterior site. Site continues to be covered in red granulation tissue, and yellow fibrotic tissue. There is a moderate amount of serosanguineous fluid draining from site. There is no redness/warmth/foul odor noted at this time. Tiffany wound appears to have a rash/dermatitis today--c/w fungal. There continues to be a large nodule noted to planter aspect of right foot--in arch. Hemosiderin staining noted to BLE gaiter regions. Edema noted in lymphedema pattern. No open wounds noted to LLE at this time. Neurological: Mental Status: He is alert and oriented to person, place, and time. Psychiatric: Mood and Affect: Mood normal. Speech: Speech normal. Behavior: Behavior normal. Behavior is cooperative. Neurological Exam Mental Status Alert. Oriented to person, place, and time. Speech is normal. Assessment and Plan Problem List Items Addressed This Visit None Visit Diagnoses Venous stasis ulcer of right lower leg with edema of right lower leg - Primary Relevant Orders SC APPLY OF UNNA BOOT SC DRESSING CHANGE CULTURE WOUND Chronic venous insufficiency Relevant Orders SC APPLY OF UNNA BOOT SC DRESSING CHANGE CULTURE WOUND Lymphedema Relevant Orders SC APPLY OF UNNA BOOT SC DRESSING CHANGE CULTURE WOUND Fungal dermatitis At this time, we will apply puraply #2 to wound, covering with adaptic touch, securing with steri-strips, with zinc barrier cream to tiffany wound and apply triamcinolone cream and unna boots to BLE. I will culture wound and start patient on an oral antifungal at this time. Patient advised to elevate BLE often, to see lymphedema clinic as scheduled, and to contact the clinic with any concerns. Patient voiced understanding and agreement of plan. Return in about 1 week (around 01/04/2023). The following treatment done per Monica Santiago LPN , applied ABD to wound of right posterior leg. Cast padding and xeroform under the knees. Crescent unna boots and coban from base of toes to below the knees. Capillary refill brisk. Cetacaine spray to right posterior leg wound prior to selective debridement by Nj Ayala CNP with #3 curette . See debridement flow sheet. Puraply AM 2x4 applied to right leg wound,steri stripped in place, covered with Adaptic touch steri stripped in place. Puraply AM lot [id number] Exp 03/12/2025 documented in this encounter [facility] 12-28-2022 Instructions Jenise Canales RN - 12/28/2022 2:15 PM EDT Keep your unna boots clean and dry., return to the wound clinic in one week. documented in this encounter [facility] 12-28-2022 Procedure note Associated Ord er(s): CELLULAR AND TISSUE-BASED PRODUCT WOUND CARE Post-Procedure Diagnose(s): Venous stasis ulcer of right lower leg with edema of right lower leg CELLULAR AND TISSUE-BASED PRODUCT WOUND CARE Date/Time: 12/28/2022 2:15 PM Performed by: KIEL Hoff Authorized by: KIEL Hoff Pre-Procedure Details: Explained the risks and benefits of the procedure. Obtained verbal consent to proceed. Anesthesia/Pain Control: topical application: Topical anesthesia: cetacaine spray. Procedure details: Location: trunk/arms/legs Debridement Details: The wound area was debrided prior to product application. Curette 3mm was used to complete the debridement. The debridement was not excisional. Tissue and other material debrided included necrotic debris and slough. Size of wound: 3 square centimeters 6 square centimeters of PuraPly was applied to the wound using aseptic technique to cover the whole wound areas. 0 square centimeters wasted. Post-procedure details: Estimated blood loss: Minimal Patient tolerance of procedure: Tolerated well, no immediate complications Complications: None [facility] 12-28-2022 Procedure note Associated Ord er(s): CELLULAR AND TISSUE-BASED PRODUCT WOUND CARE Post-Procedure Diagnose(s): Venous stasis ulcer of right lower leg with edema of right lower leg CELLULAR AND TISSUE-BASED PRODUCT WOUND CARE Date/Time: 12/28/2022 2:15 PM Performed by: KIEL Hoff Authorized by: KIEL Hoff Pre-Procedure Details: Explained the risks and benefits of the procedure. Obtained verbal consent to proceed. Anesthesia/Pain Control: topical application: Topical anesthesia: cetacaine spray. Procedure details: Location: trunk/arms/legs Debridement Details: The wound area was debrided prior to product application. Curette 3mm was used to complete the debridement. The debridement was not excisional. Tissue and other material debrided included necrotic debris and slough. Size of wound: 3 square centimeters 6 square centimeters of PuraPly was applied to the wound using aseptic technique to cover the whole wound areas. 0 square centimeters wasted. Post-procedure details: Estimated blood loss: Minimal Patient tolerance of procedure: Tolerated well, no immediate complications Complications: None documented in this encounter [facility] 12-21-2022 History of Present illness Narrative History of Present Illness Patient presents to the wound clinic today for a follow up on BLE edema and RLE wound, secondary to CVI and lymphedema. Patient has been wrapped in BLE unna boot compression therapy and denies complaints of this therapy other than the RLE unna boot fell down some. He is elevating BLE often. Denies F/C/SOB/CP at this time. I have reviewed and updated the following portions of this chart as required. No Known Allergies Past Medical History: Diagnosis Date Asthma Essential hypertension, benign MRSA (methicillin resistant staph aureus) culture positive rt. lower posteria leg Past Surgical History: Procedure Laterality Date APPENDECTOMY BACK SURGERY FOOT SURGERY Family History Problem Relation Age of Onset Heart Disease - Other Mother Diabetes Mother Heart Disease - Other Father Social History Socioeconomic History Marital status: Spouse name: Not on file Number of children: Not on file Years of education: Not on file Highest education level: Not on file Occupational History Employer: UNEMPLOYED Tobacco Use Smoking status: Former Types: Cigarettes Quit date: 2007 Years since quittin.3 Smokeless tobacco: Current Types: Chew Vaping Use Vaping Use: Never used Substance and Sexual Activity Alcohol use: Not Currently Drug use: Not Currently Types: Marijuana Comment: Former Sexual activity: Yes Partners: Female Other Topics Concern Service Not Asked Blood Transfusions Not Asked Caffeine Concern Not Asked Occupational Exposure Not Asked Hobby Hazards Not Asked Sleep Concern Not Asked Stress Concern Not Asked Weight Concern Not Asked Special Diet Not Asked Back Care Not Asked Exercise Not Asked Bike Helmet Not Asked Seat Belt Not Asked Domestic Violence No Social History Narrative Not on file Social Determinants of Health Financial Resource Strain: Not on file Food Insecurity: Not on file Transportation Needs: Not on file Physical Activity: Not on file Stress: Not on file Social Connections: Not on file Intimate Partner Violence: Not on file Housing Stability: Not on file Review of Systems Constitutional: Negative for chills, diaphoresis, fatigue and fever. Respiratory: Negative for shortness of breath. Cardiovascular: Positive for leg swelling. Negative for chest pain. Musculoskeletal: Positive for arthralgias, gait problem and myalgias. Skin: Positive for color change and wound. Negative for rash. Neurological: Negative for speech difficulty. Psychiatric/Behavioral: Negative for confusion. Vitals: Blood pressure 115/75, pulse 88, temperature 96.8 F (36 C), temperature source Temporal, resp. rate 18. Physical Exam Vitals and nursing note reviewed. Constitutional: General: He is not in acute distress. Appearance: Normal appearance. He is obese. He is not ill-appearing. HENT: Head: Normocephalic and atraumatic. Cardiovascular: Comments: Pedal pulses presents. Feet warm. Pulmonary: Effort: Pulmonary effort is normal. Musculoskeletal: Right lower leg: Edema present. Left lower leg: Edema present. Skin: General: Skin is warm and dry. Findings: No erythema. Comments: Wound still present on RLE, posterior site--measuring slightly larger today compared to previous visit. Site continues to be covered in red granulation tissue, and yellow fibrotic tissue. There is a moderate amount of serosanguineous fluid draining from site. There is no redness/warmth/foul odor noted at this time. Tiffany wound is improving, but continues to be slightly macerated. There continues to be a large nodule noted to planter aspect of right foot--in arch. Hemosiderin staining noted to BLE gaiter regions. Edema noted in lymphedema pattern. No open wounds noted to LLE at this time. Neurological: Mental Status: He is alert and oriented to person, place, and time. Psychiatric: Mood and Affect: Mood normal. Speech: Speech normal. Behavior: Behavior normal. Behavior is cooperative. Neurological Exam Mental Status Alert. Oriented to person, place, and time. Speech is normal. Assessment and Plan Problem List Items Addressed This Visit None Visit Diagnoses Venous stasis ulcer of right lower leg with edema of right lower leg - Primary Relevant Orders SC DRESSING CHANGE SC APPLY OF UNNA BOOT Chronic venous insufficiency Relevant Orders SC DRESSING CHANGE SC APPLY OF UNNA BOOT Lymphedema Relevant Orders SC DRESSING CHANGE SC APPLY OF UNNA BOOT At this time, patient agreeable to have puraply #1 applied to RLE wound. We will apply zinc barrier cream applied to tiffany wound, cover puraply with adaptic touch, dry dressing, apply triamcinolone cream to BLE, and wrap patient in BLE unna boots with xeroform at the top to help unna boots stay up. Patient encouraged to elevate BLE often, to continue with lymphedema clinic as scheduled, and to contact the wound clinic with any concerns. Patient voiced understanding of all instructions. Return in about 1 week (around 12/28/2022). Cetacaine spray to th right posterior leg wound prior to selective debridement by Nj Ayala CNP. #3 curette used, pt tolerated well, see debridement flow sheet. Puraply AM 2x2 applied to right leg wound,steri stripped in place, covered with Adaptic and covered with ABD pad. Cast padding and xeroform under the knees. Crescent unna boots and coban from base of toes to below the knees. Puraply AM lot [id number] Exp 02/27/2025 documented in this encounter [facility] 12-21-2022 Instructions Jenise Canales RN - 12/21/2022 1:15 PM EDT Keep your unna boots clean and dry, elevate your legs as tolerated throughout the day, call with concerns. documented in this encounter [facility] 12-21-2022 Procedure note Associated Ord er(s): CELLULAR AND TISSUE-BASED PRODUCT WOUND CARE Post-Procedure Diagnose(s): Venous stasis ulcer of right lower leg with edema of right lower leg CELLULAR AND TISSUE-BASED PRODUCT WOUND CARE Date/Time: 12/21/2022 1:15 PM Performed by: KIEL Hoff Authorized by: KIEL Hoff Pre-Procedure Details: Explained the risks and benefits of the procedure. Obtained verbal consent to proceed. Anesthesia/Pain Control: topical application: Topical anesthesia: cetacaine spray. Procedure details: Location: trunk/arms/legs Debridement Details: The wound area was debrided prior to product application. Curette 3mm was used to complete the debridement. The debridement was not excisional. Tissue and other material debrided included devitalized tissue, necrotic debris and slough. Size of wound: 4.4 square centimeters 4 square centimeters of PuraPly was applied to the wound using aseptic technique to cover the whole wound areas. Post-procedure details: Estimated blood loss: Minimal Patient tolerance of procedure: Tolerated well, no immediate complications Complications: None [facility] 12-21-2022 Procedure note Associated Ord er(s): CELLULAR AND TISSUE-BASED PRODUCT WOUND CARE Post-Procedure Diagnose(s): Venous stasis ulcer of right lower leg with edema of right lower leg CELLULAR AND TISSUE-BASED PRODUCT WOUND CARE Date/Time: 12/21/2022 1:15 PM Performed by: KIEL Hoff Authorized by: KIEL Hoff Pre-Procedure Details: Explained the risks and benefits of the procedure. Obtained verbal consent to proceed. Anesthesia/Pain Control: topical application: Topical anesthesia: cetacaine spray. Procedure details: Location: trunk/arms/legs Debridement Details: The wound area was debrided prior to product application. Curette 3mm was used to complete the debridement. The debridement was not excisional. Tissue and other material debrided included devitalized tissue, necrotic debris and slough. Size of wound: 4.4 square centimeters 4 square centimeters of PuraPly was applied to the wound using aseptic technique to cover the whole wound areas. Post-procedure details: Estimated blood loss: Minimal Patient tolerance of procedure: Tolerated well, no immediate complications Complications: None documented in this encounter [facility] 12-14-2022 History of Present illness Narrative History of Present Illness Patient presents to the wound clinic today for a follow up on BLE edema and RLE wound, secondary to CVI and lymphedema. Patient did have his lymphedema clinic appt this morning. He is elevating BLE when able. Denies F/C/SOB/CP at this time. I have reviewed and updated the following portions of this chart as required. No Known Allergies Past Medical History: Diagnosis Date Asthma Essential hypertension, benign MRSA (methicillin resistant staph aureus) culture positive rt. lower posteria leg Past Surgical History: Procedure Laterality Date APPENDECTOMY BACK SURGERY FOOT SURGERY Family History Problem Relation Age of Onset Heart Disease - Other Mother Diabetes Mother Heart Disease - Other Father Social History Socioeconomic History Marital status: Spouse name: Not on file Number of children: Not on file Years of education: Not on file Highest education level: Not on file Occupational History Employer: UNEMPLOYED Tobacco Use Smoking status: Former Types: Cigarettes Quit date: 2007 Years since quittin.3 Smokeless tobacco: Current Types: Chew Vaping Use Vaping Use: Never used Substance and Sexual Activity Alcohol use: Not Currently Drug use: Not Currently Types: Marijuana Comment: Former Sexual activity: Yes Partners: Female Other Topics Concern Service Not Asked Blood Transfusions Not Asked Caffeine Concern Not Asked Occupational Exposure Not Asked Hobby Hazards Not Asked Sleep Concern Not Asked Stress Concern Not Asked Weight Concern Not Asked Special Diet Not Asked Back Care Not Asked Exercise Not Asked Bike Helmet Not Asked Seat Belt Not Asked Domestic Violence No Social History Narrative Not on file Social Determinants of Health Financial Resource Strain: Not on file Food Insecurity: Not on file Transportation Needs: Not on file Physical Activity: Not on file Stress: Not on file Social Connections: Not on file Intimate Partner Violence: Not on file Housing Stability: Not on file Review of Systems Constitutional: Negative for chills, diaphoresis, fatigue and fever. Respiratory: Negative for shortness of breath. Cardiovascular: Positive for leg swelling. Negative for chest pain. Musculoskeletal: Positive for arthralgias, gait problem and myalgias. Skin: Positive for color change and wound. Negative for rash. Neurological: Negative for speech difficulty. Psychiatric/Behavioral: Negative for confusion. Vitals: Blood pressure 106/62, pulse 65, temperature 97.8 F (36.6 C), temperature source Temporal, resp. rate 19. Physical Exam Vitals and nursing note reviewed. Constitutional: General: He is not in acute distress. Appearance: Normal appearance. He is obese. He is not ill-appearing. HENT: Head: Normocephalic and atraumatic. Cardiovascular: Comments: Pedal pulses presents. Feet warm. Pulmonary: Effort: Pulmonary effort is normal. Musculoskeletal: Right lower leg: Edema present. Left lower leg: Edema present. Skin: General: Skin is warm and dry. Findings: No erythema. Comments: Wound still present on RLE, posterior site--measuring smaller. Site continues to be covered in red granulation tissue, and yellow slough. There is a moderate amount of serosanguineous fluid draining from site. There is no redness/warmth/foul odor noted at this time. Tiffany wound is improving. There continues to be a large nodule noted to planter aspect of right foot--in arch. Per patient, site has been present for several years. Hemosiderin staining noted to BLE gaiter regions. Edema noted in lymphedema pattern. No open wounds noted to LLE at this time. Neurological: Mental Status: He is alert and oriented to person, place, and time. Psychiatric: Mood and Affect: Mood normal. Speech: Speech normal. Behavior: Behavior normal. Behavior is cooperative. Neurological Exam Mental Status Alert. Oriented to person, place, and time. Speech is normal. Assessment and Plan Problem List Items Addressed This Visit None Visit Diagnoses Venous stasis ulcer of right lower leg with edema of right lower leg - Primary Relevant Orders SC DRESSING CHANGE SC APPLY OF UNNA BOOT Chronic venous insufficiency Relevant Orders SC DRESSING CHANGE SC APPLY OF UNNA BOOT Lymphedema Relevant Orders SC DRESSING CHANGE SC APPLY OF UNNA BOOT We will apply triamcinolone cream to BLE, zinc barrier cream to RLE tiffany wound, and cover wound site with sorbact, aquacel extra, and ABD. Patient will be wrapped in BLE unna boots. Patient encouraged to elevate BLE often, to perform calf pumps periodically, to continue with lymphedema clinic, and to contact the wound clinic with any concerns prior to scheduled follow up. Patient voiced understanding and agreement of plan. Return in about 1 week (around 12/21/2022). Treatment completed by Vangie Burton LPN. To right leg wound, applied zinc to tiffany wound, sorbact to wound, Aquacel Extra, and ABD. To bilateral lower legs, applied triamcinolone, foam to anterior ankles, pink unna boot and coban. Cap refill brisk. Patient tolerated well. documented in this encounter [facility] 12-14-2022 Instructions Jenise Canales RN - 12/14/2022 9:00 AM EDT Keep your unna boots clean and dry, elevate the legs as tolerated throughout the day, call with questions or concerns. documented in this encounter [facility] 12-08-2022 History of Present illness Narrative Review of Systems A complete review of systems are negative except those consistent with HPI No fevers, chills or sweats No cough, chest pain No dysphagia, odynophagia No abdominal pain, nausea, vomiting, diarrhea No dysuria, frequency, hematuria No headache, dizziness, focal neurologic complaints No ear pain No sinus pain No rash No weight loss No joint or muscular pain Recent travel history? No HPI Carmen Gilman 57 y.o. male presents today for Follow-up and Hepatitis C The patient was referred for hepatitis C management. He has a history of hepatitis C for over 10 years and history of alcohol as well as drug use. Patient has a history of THC/marijuana as well as cocaine use. Patient has bilateral leg edema with history of right lower extremity ulcer, obesity, cirrhosis, pancytopenia, asthma, malnutrition, with a history of staph aureus colonization Patient was referred to infectious disease clinic 06/09 for history of hepatitis B and hepatitis C. Patient states recent history of admission to [facility] for falls. Patient had CT scan in April 2022 showing hepatosplenomegaly and varices. He denies a history of GI bleed to his recollection. Patient states he does not recall ever having an EGD. Unclear if he has had a history of encephalopathy or ascites. ID consult 06/09/2022 for hepatitis C management. Patient denies current drug use except for intermittent marijuana. Denies any tobacco or alcohol use which he states he quits. No current nausea, vomiting, jaundice or abdominal discomfort at initial consult date. Patient is intentionally losing weight. Trying to get his health back according to his report. ID clinic consult 06/09 Follow-up in ID clinic 06/23, labs were obtained during last visit and discussed with patient. Patient does have cirrhosis with underlying varices on imaging but otherwise does not have severe LFT or INR abnormalities. Patient denies any abdominal pain, nausea or vomiting, fevers, hematemesis, belly swelling or confusion. Denies any alcohol drugs or tobacco use. Here to discuss hepatitis C treatment regimens/plans. ID clinic appointment 07/07 and patient had referral to [facility] for medications. According to report, he did not want to speak with them however they were connected today during clinic to discuss treatment and to get to the patient the hepatitis C medication. Patient denies any abdominal pain. Has had some upper respiratory symptoms and states his grandson was also sick with a respiratory virus. Patient is having wheezing and states he needs to get an inhaler. No fevers or chills reported. No specific shortness of breath noted. Follow-up appointment 08/25. Patient did receive hepatitis C treatment on 08/23. [facility] and began to take. No current side effects at this time except for fatigue. Patient denies any nausea, vomiting, abdominal pain. No hematemesis or blood loss. No fevers or chills. Patient continues to get treated for right lower extremity wound and is seeing a consulting group analyst in [place] [address] [place] with improvement over time reported. Patient complains of diffuse joint pain which is ongoing but not associated with recent start of hepatitis C treatment. Patient endorses ongoing intentional weight loss. Follow-up appointment 09/29, patient is on hepatitis C therapy and is on second month. Patient states he is tolerating this well without issues. Patient is walking better. Still with fatigue. No significant GI complaints. Has more energy. No fevers or chills. Was then able to get his hepatitis C therapy this weekend as he missed the [employer] truck and so missed one dose of treatment but otherwise states excellent compliance. Appt in ID 10/27, he is tolerating HCV med and having no complaints. Did walk in rain and developed bronchitis and did receive two abx injections per his report. RLE wound that he is managing at home with dressing changes daily. Had EGD done. No bleeding or stomach issues. Follow-up evaluation 11/03, patient continues to be on hepatitis C treatment without issues. Continues to have right lower leg wound with drainage noted. No fevers chills or sweats. Labs were reviewed today and discussed with all questions answered. Appt . Infectious disease clinic 11/24. Patient is sleepy today., patient states he has been up early this morning with various insurance. Patient is seeing wound care clinic and getting Unna boots placed every week and these are left on through the week. Notes that his swelling and weight have improved. No known insurance for infection. Patient tolerating and taking hepatitis C therapy without issue. Discussed with him repeat labs and timing of conclusion. Patient's main concern today is over a week history of inability to use his right hand. Patient states he woke up one morning and she was not able to grasp objects and he had hand weakness without weakness or sensation changes elsewhere. Patient concerned that this may have something to do with his potassium levels or if he had a stroke. Infectious disease follow-up 12/08, patient remains on hep C meds. 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 Patient also being followed with wound care center and has Unna boot in place. Patient states he is tolerating his meds for hepatitis C well and may miss a dose every week or last but overall being compliant otherwise. No abdominal pain. Still with ongoing right hand weakness and has not followed up on getting a CT of his head done yet and this was discussed. ROS Review of Systems A complete review of systems are negative except those consistent with HPI No fevers, chills or sweats No cough, chest pain No dysphagia, odynophagia No abdominal pain, nausea, vomiting, diarrhea No dysuria, frequency, hematuria No headache, dizziness, focal neurologic complaints No ear pain No sinus pain No rash No weight loss No joint or muscular pain Recent travel history? No HISTORY/ALLERGIES/MEDS No Known Allergies Past Medical History: Diagnosis Date Asthma Essential hypertension, benign MRSA (methicillin resistant staph aureus) culture positive rt. lower posteria leg Past Surgical History: Procedure Laterality Date APPENDECTOMY BACK SURGERY FOOT SURGERY Social History Socioeconomic History Marital status: Spouse name: Not on file Number of children: Not on file Years of education: Not on file Highest education level: Not on file Occupational History Employer: UNEMPLOYED Tobacco Use Smoking status: Former Types: Cigarettes Quit date: 2007 Years since quittin.3 Smokeless tobacco: Current Types: Chew Vaping Use Vaping Use: Never used Substance and Sexual Activity Alcohol use: Not Currently Drug use: Not Currently Types: Marijuana Comment: Former Sexual activity: Yes Partners: Female Other Topics Concern Service Not Asked Blood Transfusions Not Asked Caffeine Concern Not Asked Occupational Exposure Not Asked Hobby Hazards Not Asked Sleep Concern Not Asked Stress Concern Not Asked Weight Concern Not Asked Special Diet Not Asked Back Care Not Asked Exercise Not Asked Bike Helmet Not Asked Seat Belt Not Asked Domestic Violence No Social History Narrative Not on file Social Determinants of Health Financial Resource Strain: Not on file Food Insecurity: Not on file Transportation Needs: Not on file Physical Activity: Not on file Stress: Not on file Social Connections: Not on file Intimate Partner Violence: Not on file Housing Stability: Not on file Family History Problem Relation Age of Onset Heart Disease - Other Mother Diabetes Mother Heart Disease - Other Father Current Outpatient Medications: clonazePAM 0.5 MG tablet, Take 1 tablet by mouth 2 times daily. (Patient not taking: Reported on 11/25/2022), Disp: , Rfl: Epclusa 400-100 MG tablet, Take 1 tablet by mouth daily., Disp: , Rfl: furOSEmide 40 MG tablet, Take 1 tablet by mouth daily., Disp: 30 tablet, Rfl: 0 gabapentin 800 MG tablet, Take 1 tablet by mouth 3 times daily., Disp: 90 tablet, Rfl: 0 Glycopyrrolate-Formoterol (Bevespi Aerosphere) 9-4.8 MCG/ACT Aerosol, Inhale 2 puffs 2 times daily. (Patient not taking: Reported on 11/25/2022), Disp: 1 Inhaler, Rfl: 11 meloxicam 15 MG tablet, , Disp: , Rfl: mupirocin 2 % ointment, , Disp: , Rfl: spironolactone 25 MG tablet, Take 1 tablet by mouth daily., Disp: 30 tablet, Rfl: 0 Symbicort 160-4.5 MCG/ACT Aerosol inhaler, INHALE 2 PUFFS BY MOUTH TWICE DAILY (Patient not taking: Reported on 11/25/2022), Disp: , Rfl: EXAM BP 188/78 (BP Location: Left arm, BP Position: Sitting) Pulse 78 Temp 97.5 F (36.4 C) (Temporal) Resp 14 Ht 1.829 m (6') Wt 105.3 kg (232 lb 3.2 oz) SpO2 97% BMI 31.49 kg/m Smoking Status Former Physical Exam Vitals and nursing note reviewed. Constitutional: General: He is not in acute distress. Appearance: He is obese. He is not toxic-appearing. Comments: Sleepy, severe dental disease HENT: Head: Normocephalic and atraumatic. Mouth/Throat: Pharynx: Oropharynx is clear. No oropharyngeal exudate. Eyes: Extraocular Movements: Extraocular movements intact. Conjunctiva/sclera: Conjunctivae normal. Pupils: Pupils are equal, round, and reactive to light. Cardiovascular: Rate and Rhythm: Normal rate and regular rhythm. Pulses: Normal pulses. Heart sounds: No murmur heard. Pulmonary: Effort: Pulmonary effort is normal. No respiratory distress. Breath sounds: Normal breath sounds. No rhonchi or rales. Abdominal: General: Bowel sounds are normal. There is no distension. Palpations: Abdomen is soft. There is no mass. Tenderness: There is no abdominal tenderness. There is no guarding. Genitourinary: Comments: No CVA or suprapubic tenderness Musculoskeletal: General: No swelling or tenderness. Normal range of motion. Cervical back: Normal range of motion. No rigidity. Right lower leg: Edema present. Left lower leg: Edema present. Comments: Unna boots bilaterally Skin: General: Skin is warm. Findings: No rash. Neurological: General: No focal deficit present. Right hand and wrist weakness with weakness to wrist extension but not flexion as well as weakness of finger extension throughout with normal sensation. Wrist flexion and shoulder strength do not appear to be affected. Mental Status: He is alert. Psychiatric: Mood and Affect: Mood normal. Behavior: Behavior normal. Thought Content: Thought content normal. Laboratories: CBC Lab Results Component Value Date WBC 2.8 (L) 11/29/2022 HGB 10.7 (L) 11/29/2022 HCT 33.8 (L) 11/29/2022 PLATELET 106 (L) 11/29/2022 MCV 71.4 (L) 11/29/2022 EDIF Lab Results Component Value Date RBCDISTRIBU 15.2 (H) 11/29/2022 EOSINOPHILS 1.8 11/29/2022 EOSINOPHILS 0.0 11/29/2022 BASOPHILS 0.4 11/29/2022 BASOPHILS 0.0 11/29/2022 LYMPHOCYTABS 0.6 (L) 11/29/2022 PLATELET 106 (L) 11/29/2022 MPV 8.5 11/29/2022 Lab Results Component Value Date SODIUM 136 11/29/2022 POTASSIUM 4.4 11/29/2022 CHLORIDE 99 11/29/2022 CO2 31 (H) 11/29/2022 BUN 15 11/29/2022 CREATSERUM 0.59 (L) 11/29/2022 GLUCOSE 103 (H) 11/29/2022 Hepatitis serology results: immune to hepatitis A and hepatitis B HIV results: negative Hepatitis C viral load: 440,000 on April 26, 2022 Hepatitis C genotype:3 Imagin. No thoracic traumatic injury. 2. No acute cardiopulmonary process. 3. Periesophageal varices related to portal hypertension. ABDOMEN/PELVIS: 1. Hepatosplenomegaly and cirrhotic liver, stable. No focal hepatic lesion. 2. Perihepatic ascites and mild periportal adenopathy. 3. Stable compression deformity at L2. No acute osseous injury. 4. Prior appendectomy. 5. Tavera catheter in place. [employer] Workstation ID: [id number] Narrative EXAMINATION: CT CHEST ABDOMEN PELVIS WITHOUT CONTRAST HISTORY: ORDERING SYSTEM PROVIDED HISTORY: Fall; Abdominal Pain; Sepsis of unknown origin, TECHNOLOGIST PROVIDED HISTORY: Illness/Other Reason for exam: Fall, abdominal pain, sepsis of unknown origin Encounter Type: Subsequent/Follow-up Additional signs and symptoms: ORDERING SYSTEM PROVIDED DIAGNOSIS CODES: I63.9 Cerebrovascular accident (CVA), unspecified mechanism (HCC) N17.9 Acute renal failure, unspecified acute renal failure type (HCC) A41.9 Sepsis, due to unspecified organism, unspecified whether acute organ dysfunction present (HCC) L03.119 Cellulitis of lower extremity, unspecified laterality I95.9 Hypotension, unspecified hypotension type COMPARISON: Chest x-ray 04/24/2022, pelvis and left femur x-rays 04/24/2022. Chest, abdomen and pelvis CT 06/03/2021. TECHNIQUE: Unenhanced helical imaging of the chest, abdomen, and pelvis is performed. Multiplanar reformatted images as well as coronal and sagittal MIP (maximum intensity projection) images are submitted. Dose reduction techniques were achieved by using: automated exposure control and/or adjustment of mA and/or kV according to patient size and/or use of iterative reconstruction technique. FINDINGS: CHEST: MEDIASTINUM: Cardiac size is normal. There is no pericardial effusion. The thoracic aorta is intact with normal origins of the great vessels. The esophagus is normal. Central airways are patent. No mediastinal or hilar adenopathy. The imaged thyroid is within normal limits. Periesophageal varices are noted. LUNGS AND PLEURA: Trace pleural effusions and minimal basilar atelectasis. Lungs are clear. No suspicious pulmonary nodules. OSSEOUS STRUCTURES: No acute osseous abnormality. No osseous injury. SOFT TISSUES: Bilateral left greater than right gynecomastia. ABDOMEN: SOLID ORGANS: The liver is cirrhotic and enlarged. The spleen is also markedly enlarged. No focal hepatic lesion. The hepatic density is normal. Gallbladder, biliary ducts, adrenal glands, kidneys, pancreas are all within normal limits. No renal calculi or hydronephrosis. BOWEL: The stomach, proximal small bowel and imaged portions of the colon are normal in course and caliber. No bowel wall thickening or pneumatosis. MESENTERY AND RETROPERITONEUM: Mildly enlarged gastrohepatic ligament and periportal lymph nodes. No mesenteric or retroperitoneal adenopathy. OSSEOUS STRUCTURES: Lower lumbar spine degenerative disease. Stable compression deformity of L2. No acute osseous injury. ABDOMINAL WALL AND SOFT TISSUES: No acute abnormality. PELVIS: GENITOURINARY: The distal ureters, urinary bladder, prostate and seminal vesicles are intact. Tavera catheter in place. There are no distal urinary tract calculi. VASCULATURE: Noncontrast exam. No atherosclerotic disease. BOWEL: Distal small bowel, rectosigmoid colon, cecum, imaged ascending colon are intact. No bowel wall thickening. Prior appendectomy. MESENTERY: No free fluid, fluid collection or adenopathy. OSSEOUS STRUCTURES: No acute osseous injury. Diagnosis/Plan: There are no diagnoses linked to this encounter. Hepatitis C -Patient counselled to Avoid hepatotoxins and avoidance of EtOH; patient states he currently is not drinking -Recommended patient to avoid behaviors to reduce transmission 2 others: do not donate blood/tissue/semen & do not share razors, clippers, toothbrushes or items that may have been contaminated with blood. -Recommend that any close contacts who could have been exposed to of the patient s blood to be screened for hepatitis C and this was discussed with the patient - INR 1.16 mildly elevated, fibrosure 0.78 consistent with cirrhosis, alpha-fetoprotein which was normal -NS5A genotype 3 resistance testing: negative -Patient does have likely decompensated cirrhosis given varices noted. -Referral to GI clinic for EGD and assistance with management of end-stage liver disease placed on 06/09; still awaiting follow-up visit and this will be checked on to try to facilitate -CTP grade of 6 (additional point for low albumin) -per guidelines for patients with decompensated cirrhosis with genotype 1-6 who cannot utilize ribavarin in this case due to already notable cytopenias daily fixed dosing of sofosbuvir 400mg/velpatasvir 100mg (epclusa) x 24 weeks has a 1A rating. -Continue epclusa 08/23/22-current x 24 weeks; on 4th month without issues - liver function test 10/27 and 11/29 with VL ND -liver function tests within normal limits -Repeat LFTs and hepatitis C viral load monthly ongoing Cirrhosis/possible esophageal varices -Patient has seen GI specialist -Testing including ISSAC, Anca, teddy, antimitochondrial antibody, EBV, CMV, ceruloplasmin were normal -EGD with varices, managed by GI Low potassium -Normalized, 11/29 -on diuretic and potassium supplement per his report Fatigue -This is Likely multifactorial -Recommend taking hepatitis C treatment daily at bedtime to try to reduce the medications impact Joint pains -Suspect this is related to chronic arthritis, degenerative disease -Discussed with patient to avoid NSAIDs and Tylenol -Recommend following up with primary Positive hepatitis B core antibody -Patient is surface antibody positive but surface antigen negative -Obtained hepatitis B DNA level 06/09 which was negative -planned for follow-up testing once hepatitis C treatment is started, and this was performed on 09/13 and hepatitis B DNA remains undetectable, f/up 10/27 not detectable and LFTs ALT/AST normal on hepatitis C treatment Drug use -Recommend ongoing cessation, patient on cessation medication,he denies any recent use Health care maintenance -Patient is immune against hepatitis A and hepatitis B based on serologies -Recommend influenza, coronavirus, shingles, pneumococcal vaccinations but the patient has deferred previously History of alcohol abuse -Currently off of alcohol Pancytopenia -CBC with pancytopenia 04/30/2022 -Would not recommend pursuing ribavirin given low hemoglobin/blood cell counts -Folate and B12 levels 04/26/22 normal -white count 2.9, 3.2/ hemoglobin 10.2,10.6/ platelets 108, 117 -patient seeing student services vice president -Positive testing for positive platelet antibodies IIB/IIIA, possible ITP -Possible thalassemia, electrophoresis is pending Obesity -Patient with ongoing efforts to lose weight -BMI 30.4, 31.2, 31.6, 31.4 Right lower extremity wound/feet& toe deformities -Patient sees podiatry Dr. Pelayo in [place] -Placed c/s for podiatry - seeing wound care and has pneumoboots in place Right hand weakness -No trauma noted, does have notable weak left is extensor, fingers and wrist area -Obtain head CT which was ordered stat however patient has deferred getting tests performed today and wishes to come back different day although I recommended it to be performed today to rule out TRAIN PLANNER event; on follow-up, patient still has not gotten testing done and this will be rescheduled -X-ray shows degenerative changes but this likely does not explain his findings or acuity of presentation -Depending on findings, may need referral to neurology versus orthopedics Patient to follow-up within 3-4 weeks, earlier with new issues [address] Nathan Hayden documented in this encounter [facility] 11-30-2022 History of Present illness Narrative The following treatment completed via [employer] triamcinolone 0.1% cream applied to lower legs, foam to ankles. Right leg wound applied zine to tiffany-wound, sorbact, aqucel extra and ABD. [place] unna boots applied to lower legs. Patient voices no concerns or questions at this time. documented in this encounter [facility] 11-30-2022 Instructions Jenise Canales RN - 11/30/2022 1:15 PM EDT Follow up in one week, keep your unna boots clean and dry. Call the wound clinic with questions or concerns. documented in this encounter [facility] 11-25-2022 History of Present illness Narrative Review of Systems Constitutional: Positive for chills and fatigue. Eyes: Negative. Respiratory: Positive for shortness of breath. Cardiovascular: Positive for leg swelling. Gastrointestinal: Negative. Endocrine: Negative. Genitourinary: Negative. Musculoskeletal: Positive for gait problem. Skin: Positive for wound (left foot, right foot). Neurological: Positive for gait problem. Hematological: Negative. Psychiatric/Behavioral: Positive for confusion and decreased concentration. CHIEF COMPLAINT/REASON: Chief Complaint Patient presents with New Patient Pancytopenia HISTORY OF PRESENT ILLNESS: Carmen Gilman is a 57 y.o. male with history of hepatitis C, alcohol abuse as well as drug abuse and hepatosplenomegaly with cirrhosis of the liver and chronic wound of the right lower extremity, pancytopenia who was referred to us for evaluation of pancytopenia. He is seeing Dr. Hayden for hepatitis C management. He has also been admitted to [facility] for falls and CT scan in April 2022 showed hepatosplenomegaly and bases. He denies any bleeding. Patient seems to be somewhat sleepy and it is not clear whether he has encephalopathy ROS: Review of Systems - Oncology Review of Systems Constitutional: Positive for chills and fatigue. Eyes: Negative. Respiratory: Positive for shortness of breath. Cardiovascular: Positive for leg swelling. Gastrointestinal: Negative. Endocrine: Negative. Genitourinary: Negative. Musculoskeletal: Positive for gait problem. Skin: Positive for wound (left foot, right foot). Neurological: Positive for gait problem. Hematological: Negative. Psychiatric/Behavioral: Positive for confusion and decreased concentration. Social History Socioeconomic History Marital status: Spouse name: Not on file Number of children: Not on file Years of education: Not on file Highest education level: Not on file Occupational History Employer: UNEMPLOYED Tobacco Use Smoking status: Former Types: Cigarettes Quit date: 2007 Years since quittin.2 Smokeless tobacco: Current Types: Chew Vaping Use Vaping Use: Never used Substance and Sexual Activity Alcohol use: Not Currently Drug use: Not Currently Types: Marijuana Comment: Former Sexual activity: Yes Partners: Female Other Topics Concern Service Not Asked Blood Transfusions Not Asked Caffeine Concern Not Asked Occupational Exposure Not Asked Hobby Hazards Not Asked Sleep Concern Not Asked Stress Concern Not Asked Weight Concern Not Asked Special Diet Not Asked Back Care Not Asked Exercise Not Asked Bike Helmet Not Asked Seat Belt Not Asked Domestic Violence No Social History Narrative Not on file Social Determinants of Health Financial Resource Strain: Not on file Food Insecurity: Not on file Transportation Needs: Not on file Physical Activity: Not on file Stress: Not on file Social Connections: Not on file Intimate Partner Violence: Not on file Housing Stability: Not on file Family History Problem Relation Age of Onset Heart Disease - Other Mother Diabetes Mother Heart Disease - Other Father Past Medical History: Diagnosis Date Asthma Essential hypertension, benign MRSA (methicillin resistant staph aureus) culture positive rt. lower posteria leg VISIT VITALS: Vitals: 11/25/22 1511 BP: 113/59 Pulse: 68 Resp: 18 Temp: 98.2 degrees F (36.8 degrees C) SpO2: 97% Weight: 107.5 kg (237 lb) Height: 1.854 m (6' 1") PHYSICAL EXAM: Physical Exam Vitals and nursing note reviewed. HENT: Head: Normocephalic. Eyes: Pupils: Pupils are equal, round, and reactive to light. Cardiovascular: Rate and Rhythm: Normal rate and regular rhythm. Pulmonary: Effort: Pulmonary effort is normal. Breath sounds: Normal breath sounds. Abdominal: Palpations: Abdomen is soft. Musculoskeletal: Cervical back: Neck supple. Skin: General: Skin is warm and dry. Neurological: Mental Status: He is alert and oriented to person, place, and time. Psychiatric: Behavior: Behavior normal. Thought Content: Thought content normal. ECOG PERFORMANCE STATUS: Performance Status: Ambulatory and capable of all selfcare but unable to carry out any work activities. Up and about more than 50% of waking hours RADIOLOGIC DATA: CT Chest Abdomen Pelvis Without Contrast 04/25/22 Impression CHEST: 1. No thoracic traumatic injury. 2. No acute cardiopulmonary process. 3. Periesophageal varices related to portal hypertension. ABDOMEN/PELVIS: 1. Hepatosplenomegaly and cirrhotic liver, stable. No focal hepatic lesion. 2. Perihepatic ascites and mild periportal adenopathy. 3. Stable compression deformity at L2. No acute osseous injury. 4. Prior appendectomy. 5. Tavera catheter in place. LABS: Latest Reference Range & Units 10/27/22 10:32 SODIUM 136 - 145 MMOL/L 133 (L) POTASSIUM 3.5 - 5.1 MMOL/L 4.1 CHLORIDE 98 - 107 MMOL/L 93 (L) CARBON DIOXIDE (CO2) 22 - 30 MMOL/L 34 (H) BUN 7 - 20 MG/DL 19 Creatinine 0.66 - 1.25 MG/DL 0.63 (L) ESTIMATED GFR, NON AMER ml/min/1.73sq.m 140 ESTIMATED GFR, ml/min/1.73sq.m 169 CALCIUM 8.4 - 10.2 MG/DL 8.6 BILIRUBIN, TOTAL 0.2 - 1.2 MG/DL 1.5 (H) PROTEIN, TOTAL 6.3 - 8.2 GM/DL 7.3 Albumin 3.5 - 5.0 G/dl 3.3 (L) A/G Ratio 1.3 - 2.2 RATIO 0.8 (L) ALKALINE PHOSPHATASE 38 - 126 IU/L 66 ALT 17 - 63 IU/L 12 (L) AST 15 - 41 IU/L 22 GLUCOSE 70 - 100 MG/DL 135 (H) GFR COMMENT Average GFR for 50-59 years old = 93. ASSESSMENT / PLAN: Pancytopenia most likely secondary to hepatosplenomegaly. And also has esophageal varices. Will do anemia workup to rule out any iron deficiency or B12 and folate deficiency. We will also do an autoimmune workup to rule out an autoimmune etiology. Hepatitis C. Patient is under the care of Dr. Hayden return visit in 2 weeks A total of 45 minutes was spent in review of the patient's chart and labs, note preparation, direct, face to face contact with the patient, and any potential coordination of care today. ( Excluding any time spent on testing or procedures.) Bridget Dahl MD Portions of this chart were created using [employer] electronic dictation. Please excuse any typographical or grammatical errors contained herein as a result. documented in this encounter [facility] 11-25-2022 Instructions Bridget Dahl MD - 11/25/2022 3:00 PM EDT Return Visit in 2 weeks with Labs. documented in this encounter [facility] 11-23-2022 History of Present illness Narrative History of Present Illness Patient presents to the wound clinic today for a follow up on BLE edema and wounds, secondary to CVI and lymphedema. Patient has been elevate BLE when able. He was in BLE unna boot compression therapy and denies complaints of therapy. Denies F/C/SOB/CP at this time. I have reviewed and updated the following portions of this chart as required. No Known Allergies Past Medical History: Diagnosis Date Asthma Essential hypertension, benign MRSA (methicillin resistant staph aureus) culture positive rt. lower posteria leg Past Surgical History: Procedure Laterality Date APPENDECTOMY BACK SURGERY FOOT SURGERY Family History Problem Relation Age of Onset Heart Disease - Other Mother Diabetes Mother Heart Disease - Other Father Social History Socioeconomic History Marital status: Spouse name: Not on file Number of children: Not on file Years of education: Not on file Highest education level: Not on file Occupational History Employer: UNEMPLOYED Tobacco Use Smoking status: Former Types: Cigarettes Quit date: 2007 Years since quittin.2 Smokeless tobacco: Current Types: Chew Vaping Use Vaping Use: Never used Substance and Sexual Activity Alcohol use: Not Currently Drug use: Not Currently Types: Marijuana Comment: Former Sexual activity: Yes Partners: Female Other Topics Concern Service Not Asked Blood Transfusions Not Asked Caffeine Concern Not Asked Occupational Exposure Not Asked Hobby Hazards Not Asked Sleep Concern Not Asked Stress Concern Not Asked Weight Concern Not Asked Special Diet Not Asked Back Care Not Asked Exercise Not Asked Bike Helmet Not Asked Seat Belt Not Asked Domestic Violence No Social History Narrative Not on file Social Determinants of Health Financial Resource Strain: Not on file Food Insecurity: Not on file Transportation Needs: Not on file Physical Activity: Not on file Stress: Not on file Social Connections: Not on file Intimate Partner Violence: Not on file Housing Stability: Not on file Review of Systems Constitutional: Negative for chills, diaphoresis, fatigue and fever. Respiratory: Negative for shortness of breath. Cardiovascular: Positive for leg swelling. Negative for chest pain. Musculoskeletal: Positive for arthralgias, gait problem and myalgias. Skin: Positive for color change and wound. Negative for rash. Neurological: Negative for speech difficulty. Psychiatric/Behavioral: Negative for confusion. Vitals: Blood pressure 108/54, pulse 73, temperature 97.3 F (36.3 C), temperature source Temporal, resp. rate 20. Physical Exam Vitals and nursing note reviewed. Constitutional: General: He is not in acute distress. Appearance: Normal appearance. He is obese. He is not ill-appearing. HENT: Head: Normocephalic and atraumatic. Cardiovascular: Comments: Pedal pulses presents. Feet warm. Pulmonary: Effort: Pulmonary effort is normal. Musculoskeletal: Right lower leg: Edema (decreased from previous visit) present. Left lower leg: Edema (decreased from previous visit) present. Skin: General: Skin is warm and dry. Findings: No erythema. Comments: Anterior sites on RLE are now covered with thin scabs, and posterior sites are improving. Posterior sites are seeping a moderate amount of serosanguineous fluid. Wound bed at posterior site is covered in red granulation tissue, with a small amount of yellow slough. There is no redness/warmth/foul odor noted at this time. Tiffany wound is noted to have slight maceration noted. There continues to be a large nodule noted to planter aspect of right foot--in arch. Per patient, site has been present for several years. There is a dry flaky skin noted to gaiter regions. Hemosiderin staining noted to BLE gaiter regions. Edema noted in lymphedema pattern. No open wounds noted to LLE at this time. Neurological: Mental Status: He is alert and oriented to person, place, and time. Psychiatric: Mood and Affect: Mood normal. Speech: Speech normal. Behavior: Behavior normal. Behavior is cooperative. Neurological Exam Mental Status Alert. Oriented to person, place, and time. Speech is normal. Assessment and Plan Problem List Items Addressed This Visit None Visit Diagnoses Venous stasis ulcer of right lower leg with edema of right lower leg - Primary Relevant Orders SC DRESSING CHANGE Chronic venous insufficiency Relevant Orders SC DRESSING CHANGE Lymphedema Relevant Orders SC DRESSING CHANGE At this time, we will apply triamcinolone cream to BLE, zinc barrier cream to RLE posterior tiffany wounds, sorbact, aquacel extra and ABD to RLE wound sites, foam to anterior ankles, and wrap patient in BLE unna boot compression therapy. We did discuss lymphedema clinic, and patient agreeable to referral--referral placed. Patient advised to elevate BLE often, to perform calf pumps, and to contact the clinic with any concerns. Patient voiced understanding of all instructions and agreement of plan. Return in about 1 week (around 11/30/2022) for Nurse Visit. Pt educated on Lymphedema pumps per Nj Ayala CNP. The following treatment completed via Monica Santiago LPN triamcinolone 0.1% cream applied to lower legs, foam to ankles. Right leg wound applied zine to tiffany-wound, sorbact, aqucel extra and ABD. Crescent unna boots applied to lower legs. Patient voices no concerns or questions at this time. documented in this encounter [facility] 11-23-2022 Instructions Deborah Bell RN - 11/23/2022 1:45 PM EDT Wound center to coordinate Lymphedema. documented in this encounter [facility] 11-16-2022 History of Present illness Narrative History of Present Illness Patient presents to the wound clinic today for a follow up on BLE edema and RLE wounds, secondary to CVI and lymphedema. Patient has been in BLE unna boots, and denies complaints of this therapy. He has been elevating BLE often. Denies F/C/SOB/CP at this time. I have reviewed and updated the following portions of this chart as required. No Known Allergies Past Medical History: Diagnosis Date Asthma Essential hypertension, benign MRSA (methicillin resistant staph aureus) culture positive rt. lower posteria leg Past Surgical History: Procedure Laterality Date APPENDECTOMY BACK SURGERY FOOT SURGERY Family History Problem Relation Age of Onset Heart Disease - Other Mother Diabetes Mother Heart Disease - Other Father Social History Socioeconomic History Marital status: Spouse name: Not on file Number of children: Not on file Years of education: Not on file Highest education level: Not on file Occupational History Employer: UNEMPLOYED Tobacco Use Smoking status: Former Types: Cigarettes Quit date: 2007 Years since quittin.2 Smokeless tobacco: Current Types: Chew Vaping Use Vaping Use: Never used Substance and Sexual Activity Alcohol use: Not Currently Drug use: Not Currently Types: Marijuana Comment: Former Sexual activity: Yes Partners: Female Other Topics Concern Service Not Asked Blood Transfusions Not Asked Caffeine Concern Not Asked Occupational Exposure Not Asked Hobby Hazards Not Asked Sleep Concern Not Asked Stress Concern Not Asked Weight Concern Not Asked Special Diet Not Asked Back Care Not Asked Exercise Not Asked Bike Helmet Not Asked Seat Belt Not Asked Domestic Violence No Social History Narrative Not on file Social Determinants of Health Financial Resource Strain: Not on file Food Insecurity: Not on file Transportation Needs: Not on file Physical Activity: Not on file Stress: Not on file Social Connections: Not on file Intimate Partner Violence: Not on file Housing Stability: Not on file Review of Systems Constitutional: Negative for chills, diaphoresis, fatigue and fever. Respiratory: Negative for shortness of breath. Cardiovascular: Positive for leg swelling. Negative for chest pain. Musculoskeletal: Positive for arthralgias, gait problem and myalgias. Skin: Positive for color change and wound. Negative for rash. Neurological: Negative for speech difficulty. Psychiatric/Behavioral: Negative for confusion. Vitals: Blood pressure 110/67, pulse 77, temperature 97.1 F (36.2 C), temperature source Temporal, resp. rate 18. Physical Exam Vitals and nursing note reviewed. Constitutional: General: He is not in acute distress. Appearance: Normal appearance. He is obese. He is not ill-appearing. HENT: Head: Normocephalic and atraumatic. Cardiovascular: Comments: Pedal pulses presents. Feet warm. Pulmonary: Effort: Pulmonary effort is normal. Musculoskeletal: Right lower leg: Edema (decreased from previous visit) present. Left lower leg: Edema (decreased from previous visit) present. Skin: General: Skin is warm and dry. Findings: No erythema. Comments: Seeping sites/wounds noted to RLE, anterior and posterior are improving. Sites are seeping a moderate amount of serosanguineous fluid. Wound bed at posterior site is covered in red granulation tissue. There is no foul odor noted at this time. There is a large nodule noted to planter aspect of right foot--in arch. Per patient, site has been present for several years. There is a dry flaky skin noted to gaiter regions. There is no redness/warmth noted to BLE. Edema noted in lymphedema pattern. No open wounds noted to LLE at this time. Neurological: Mental Status: He is alert and oriented to person, place, and time. Psychiatric: Mood and Affect: Mood normal. Speech: Speech normal. Behavior: Behavior normal. Behavior is cooperative. Neurological Exam Mental Status Alert. Oriented to person, place, and time. Speech is normal. Assessment and Plan Problem List Items Addressed This Visit None Visit Diagnoses Venous stasis ulcer of right lower leg with edema of right lower leg - Primary Relevant Orders SC DRESSING CHANGE SC APPLY OF UNNA BOOT Chronic venous insufficiency Relevant Orders SC DRESSING CHANGE SC APPLY OF UNNA BOOT Lymphedema At this time, we will apply zinc barrier cream to RLE tiffany wound/wound sites, aquacel AG and ABD to all draining sites, triamcinolone cream to BLE, and wrap patient in BLE unna boot. Patient encouraged to elevate BLE often, to perform calf pumps, and to contact the clinic with any concerns. Patient voiced understanding of all instructions. Return in about 1 week (around 11/23/2022). Treatment completed by Vangie Burton LPN. To right leg wounds, applied zinc to tiffany wound, Aquacel AG to wounds and ABD's. To bilateral lower legs, applied triamcinolone, foam to anterior ankles, pink unna boot and coban. Cap refill brisk. Patient tolerated well. documented in this encounter [facility] 11-16-2022 Instructions Jenise Canales RN - 11/16/2022 8:00 AM EDT Follow up in one week, keep your unna boots clean and dry. Call with questions or concerns. documented in this encounter [facility] 11-03-2022 History of Present illness Narrative Review of Systems A complete review of systems are negative except those consistent with HPI No fevers, chills or sweats No cough, chest pain No dysphagia, odynophagia No abdominal pain, nausea, vomiting, diarrhea No dysuria, frequency, hematuria No headache, dizziness, focal neurologic complaints No ear pain No sinus pain No rash No weight loss No joint or muscular pain Recent travel history? No HPI Carmen Gilman 57 y.o. male presents today for Follow-up (Chronic hepatitis C without hepatic coma) HPI Carmen Gilman 57 y.o. male presents today for Follow-up (Chronic hepatitis C without hepatic coma) The patient was referred for hepatitis C management. He has a history of hepatitis C for over 10 years and history of alcohol as well as drug use. Patient has a history of THC/marijuana as well as cocaine use. Patient has bilateral leg edema with history of right lower extremity ulcer, obesity, cirrhosis, pancytopenia, asthma, malnutrition, with a history of staph aureus colonization Patient was referred to infectious disease clinic 06/09 for history of hepatitis B and hepatitis C. Patient states recent history of admission to [facility] for falls. Patient had CT scan in April 2022 showing hepatosplenomegaly and varices. He denies a history of GI bleed to his recollection. Patient states he does not recall ever having an EGD. Unclear if he has had a history of encephalopathy or ascites. ID consult 06/09/2022 for hepatitis C management. Patient denies current drug use except for intermittent marijuana. Denies any tobacco or alcohol use which he states he quits. No current nausea, vomiting, jaundice or abdominal discomfort at initial consult date. Patient is intentionally losing weight. Trying to get his health back according to his report. ID clinic consult 06/09 Follow-up in ID clinic 06/23, labs were obtained during last visit and discussed with patient. Patient does have cirrhosis with underlying varices on imaging but otherwise does not have severe LFT or INR abnormalities. Patient denies any abdominal pain, nausea or vomiting, fevers, hematemesis, belly swelling or confusion. Denies any alcohol drugs or tobacco use. Here to discuss hepatitis C treatment regimens/plans. ID clinic appointment 07/07 and patient had referral to [facility] for medications. According to report, he did not want to speak with them however they were connected today during clinic to discuss treatment and to get to the patient the hepatitis C medication. Patient denies any abdominal pain. Has had some upper respiratory symptoms and states his grandson was also sick with a respiratory virus. Patient is having wheezing and states he needs to get an inhaler. No fevers or chills reported. No specific shortness of breath noted. Follow-up appointment 08/25. Patient did receive hepatitis C treatment on 08/23. [facility] and began to take. No current side effects at this time except for fatigue. Patient denies any nausea, vomiting, abdominal pain. No hematemesis or blood loss. No fevers or chills. Patient continues to get treated for right lower extremity wound and is seeing a consulting group analyst in [place] with improvement over time reported. Patient complains of diffuse joint pain which is ongoing but not associated with recent start of hepatitis C treatment. Patient endorses ongoing intentional weight loss. Follow-up appointment 09/29, patient is on hepatitis C therapy and is on second month. Patient states he is tolerating this well without issues. Patient is walking better. Still with fatigue. No significant GI complaints. Has more energy. No fevers or chills. Was then able to get his hepatitis C therapy this weekend as he missed the [employer] truck and so missed one dose of treatment but otherwise states excellent compliance. Appt in ID 10/27, he is tolerating HCV med and having no complaints. Did walk in rain and developed bronchitis and did receive two abx injections per his report. RLE wound that he is managing at home with dressing changes daily. Had EGD done. No bleeding or stomach issues. Follow-up evaluation 11/03, patient continues to be on hepatitis C treatment without issues. Continues to have right lower leg wound with drainage noted. No fevers chills or sweats. Labs were reviewed today and discussed with all questions answered. ROS Review of Systems A complete review of systems are negative except those consistent with HPI No fevers, chills or sweats No cough, chest pain No dysphagia, odynophagia No abdominal pain, nausea, vomiting, diarrhea No dysuria, frequency, hematuria No headache, dizziness, focal neurologic complaints No ear pain No sinus pain No rash No weight loss No joint or muscular pain Recent travel history? No HISTORY/ALLERGIES/MEDS No Known Allergies Past Medical History: Diagnosis Date Asthma Essential hypertension, benign MRSA (methicillin resistant staph aureus) culture positive rt. lower posteria leg Past Surgical History: Procedure Laterality Date APPENDECTOMY BACK SURGERY FOOT SURGERY Social History Socioeconomic History Marital status: Spouse name: Not on file Number of children: Not on file Years of education: Not on file Highest education level: Not on file Occupational History Employer: UNEMPLOYED Tobacco Use Smoking status: Former Types: Cigarettes Quit date: 2007 Years since quittin.2 Smokeless tobacco: Current Types: Chew Vaping Use Vaping Use: Never used Substance and Sexual Activity Alcohol use: Not Currently Drug use: Not Currently Types: Marijuana Comment: Former Sexual activity: Yes Partners: Female Other Topics Concern Service Not Asked Blood Transfusions Not Asked Caffeine Concern Not Asked Occupational Exposure Not Asked Hobby Hazards Not Asked Sleep Concern Not Asked Stress Concern Not Asked Weight Concern Not Asked Special Diet Not Asked Back Care Not Asked Exercise Not Asked Bike Helmet Not Asked Seat Belt Not Asked Domestic Violence No Social History Narrative Not on file Social Determinants of Health Financial Resource Strain: Not on file Food Insecurity: Not on file Transportation Needs: Not on file Physical Activity: Not on file Stress: Not on file Social Connections: Not on file Intimate Partner Violence: Not on file Housing Stability: Not on file Family History Problem Relation Age of Onset Heart Disease - Other Mother Diabetes Mother Heart Disease - Other Father Current Outpatient Medications: albuterol 108 (90 Base) MCG/ACT Aero Soln inhaler, Inhale 2 puffs every 4 hours as needed for Shortness of Breath or Wheezing., Disp: 18 g, Rfl: 0 ammonium lactate 12 % Cream cream, APPLY THIN LAYER TO AFFECTED AREA TWICE DAILY, Disp: , Rfl: Aspirin [address] tablet, Take 1 tablet by mouth daily., Disp: 30 tablet, Rfl: 11 buprenorphine 8 MG sublingual tablet, Place 1 tablet under tongue., Disp: , Rfl: clonazePAM 0.5 MG tablet, Take 1 tablet by mouth 2 times daily., Disp: , Rfl: Combivent Respimat 20-100 MCG/ACT Aero Soln inhaler, , Disp: , Rfl: diazepam 10 MG tablet, Take 1 tablet by mouth 3 times daily as needed., Disp: , Rfl: Epclusa 400-100 MG tablet, Take 1 tablet by mouth daily., Disp: , Rfl: Glycopyrrolate-Formoterol (Bevespi Aerosphere) 9-4.8 MCG/ACT Aerosol, Inhale 2 puffs 2 times daily., Disp: 1 Inhaler, Rfl: 11 meloxicam 15 MG tablet, , Disp: , Rfl: mupirocin 2 % ointment, , Disp: , Rfl: predniSONE 10 MG tablet, TAKE 6 TABS BY MOUTH X 1 DAY & DECREASE BY ONE DAILY UNTIL GONE 6,5,4,3,2,1, Disp: , Rfl: Santyl 250 UNIT/GM Ointment, APPLY TO THE AFFECTED AREA(S) EVERY DAY FOR 14 DAYS, Disp: , Rfl: Symbicort 160-4.5 MCG/ACT Aerosol inhaler, INHALE 2 PUFFS BY MOUTH TWICE DAILY, Disp: , Rfl: Tamsulosin HCl 0.4 MG capsule, Take 1 capsule by mouth daily., Disp: , Rfl: clindamycin 300 MG capsule, Take 300 mg by mouth 3 times daily. (Patient not taking: Reported on 08/26/2022), Disp: , Rfl: furOSEmide 40 MG tablet, Take 1 tablet by mouth daily., Disp: 30 tablet, Rfl: 0 gabapentin 800 MG tablet, Take 1 tablet by mouth 3 times daily., Disp: 90 tablet, Rfl: 0 ibuprofen 800 MG tablet, , Disp: , Rfl: levoFLOXacin 500 MG tablet, , Disp: , Rfl: lisinopril 20 MG tablet, Take 1 tablet by mouth daily. (Patient not taking: Reported on 08/26/2022), Disp: 30 tablet, Rfl: 2 spironolactone 25 MG tablet, Take 1 tablet by mouth daily., Disp: 30 tablet, Rfl: 0 EXAM BP 122/78 (BP Location: Left arm, BP Position: Sitting) Pulse 72 Temp 96.9 F (36.1 C) (Temporal) Resp 16 Ht 1.829 m (6') Wt 106 kg (233 lb 9.6 oz) SpO2 98% BMI 31.68 kg/m Smoking Status Former Physical Exam Vitals and nursing note reviewed. Constitutional: General: He is not in acute distress. Appearance: He is obese. He is not toxic-appearing. Comments: More alert and interactive today HENT: Head: Normocephalic and atraumatic. Mouth/Throat: Pharynx: Oropharynx is clear. No oropharyngeal exudate. Eyes: Extraocular Movements: Extraocular movements intact. Conjunctiva/sclera: Conjunctivae normal. Pupils: Pupils are equal, round, and reactive to light. Cardiovascular: Rate and Rhythm: Normal rate and regular rhythm. Pulses: Normal pulses. Heart sounds: No murmur heard. Pulmonary: Effort: Pulmonary effort is normal. No respiratory distress. Breath sounds: Normal breath sounds. No rhonchi or rales. Abdominal: General: Bowel sounds are normal. There is no distension. Palpations: Abdomen is soft. There is no mass. Tenderness: There is no abdominal tenderness. There is no guarding. Genitourinary: Comments: No CVA or suprapubic tenderness Musculoskeletal: General: No swelling or tenderness. Normal range of motion. Cervical back: Normal range of motion. No rigidity. Right lower leg: Edema present. Left lower leg: Edema present. Comments: Extremity edema, right lower extremity with posterior calf lower area wound dressed and this is not infected, but still open. No malodor. No purulence. +Edema Right foot medial plantar deformity Left 2nd toe deformity Skin: General: Skin is warm. Findings: No rash. Neurological: General: No focal deficit present. Mental Status: He is alert. Psychiatric: Mood and Affect: Mood normal. Behavior: Behavior normal. Thought Content: Thought content normal. Laboratories: CBC Lab Results Component Value Date WBC 3.2 (L) 10/27/2022 HGB 10.6 (L) 10/27/2022 HCT 34.0 (L) 10/27/2022 PLATELET 117 (L) 10/27/2022 MCV 71.8 (L) 10/27/2022 EDIF Lab Results Component Value Date RBCDISTRIBU 17.2 (H) 10/27/2022 EOSINOPHILS 7.7 10/27/2022 EOSINOPHILS 0.3 10/27/2022 BASOPHILS 0.5 10/27/2022 BASOPHILS 0.0 10/27/2022 LYMPHOCYTABS 0.9 (L) 10/27/2022 PLATELET 117 (L) 10/27/2022 MPV 8.4 10/27/2022 Lab Results Component Value Date SODIUM 133 (L) 10/27/2022 POTASSIUM 4.1 10/27/2022 CHLORIDE 93 (L) 10/27/2022 CO2 34 (H) 10/27/2022 BUN 19 10/27/2022 CREATSERUM 0.63 (L) 10/27/2022 GLUCOSE 135 (H) 10/27/2022 Hepatitis serology results: immune to hepatitis A and hepatitis B HIV results: negative Hepatitis C viral load: 440,000 on April 26, 2022 Hepatitis C genotype:3 Imagin. No thoracic traumatic injury. 2. No acute cardiopulmonary process. 3. Periesophageal varices related to portal hypertension. ABDOMEN/PELVIS: 1. Hepatosplenomegaly and cirrhotic liver, stable. No focal hepatic lesion. 2. Perihepatic ascites and mild periportal adenopathy. 3. Stable compression deformity at L2. No acute osseous injury. 4. Prior appendectomy. 5. Tavera catheter in place. Climateminder/Collarity Workstation ID: [id number] Narrative EXAMINATION: CT CHEST ABDOMEN PELVIS WITHOUT CONTRAST HISTORY: ORDERING SYSTEM PROVIDED HISTORY: Fall; Abdominal Pain; Sepsis of unknown origin, TECHNOLOGIST PROVIDED HISTORY: Illness/Other Reason for exam: Fall, abdominal pain, sepsis of unknown origin Encounter Type: Subsequent/Follow-up Additional signs and symptoms: ORDERING SYSTEM PROVIDED DIAGNOSIS CODES: I63.9 Cerebrovascular accident (CVA), unspecified mechanism ([facility]) N17.9 Acute renal failure, unspecified acute renal failure type ([facility]) A41.9 Sepsis, due to unspecified organism, unspecified whether acute organ dysfunction present ([facility]) L03.119 Cellulitis of lower extremity, unspecified laterality I95.9 Hypotension, unspecified hypotension type COMPARISON: Chest x-ray 04/24/2022, pelvis and left femur x-rays 04/24/2022. Chest, abdomen and pelvis CT 06/03/2021. TECHNIQUE: Unenhanced helical imaging of the chest, abdomen, and pelvis is performed. Multiplanar reformatted images as well as coronal and sagittal MIP (maximum intensity projection) images are submitted. Dose reduction techniques were achieved by using: automated exposure control and/or adjustment of mA and/or kV according to patient size and/or use of iterative reconstruction technique. FINDINGS: CHEST: MEDIASTINUM: Cardiac size is normal. There is no pericardial effusion. The thoracic aorta is intact with normal origins of the great vessels. The esophagus is normal. Central airways are patent. No mediastinal or hilar adenopathy. The imaged thyroid is within normal limits. Periesophageal varices are noted. LUNGS AND PLEURA: Trace pleural effusions and minimal basilar atelectasis. Lungs are clear. No suspicious pulmonary nodules. OSSEOUS STRUCTURES: No acute osseous abnormality. No osseous injury. SOFT TISSUES: Bilateral left greater than right gynecomastia. ABDOMEN: SOLID ORGANS: The liver is cirrhotic and enlarged. The spleen is also markedly enlarged. No focal hepatic lesion. The hepatic density is normal. Gallbladder, biliary ducts, adrenal glands, kidneys, pancreas are all within normal limits. No renal calculi or hydronephrosis. BOWEL: The stomach, proximal small bowel and imaged portions of the colon are normal in course and caliber. No bowel wall thickening or pneumatosis. MESENTERY AND RETROPERITONEUM: Mildly enlarged gastrohepatic ligament and periportal lymph nodes. No mesenteric or retroperitoneal adenopathy. OSSEOUS STRUCTURES: Lower lumbar spine degenerative disease. Stable compression deformity of L2. No acute osseous injury. ABDOMINAL WALL AND SOFT TISSUES: No acute abnormality. PELVIS: GENITOURINARY: The distal ureters, urinary bladder, prostate and seminal vesicles are intact. Tavera catheter in place. There are no distal urinary tract calculi. VASCULATURE: Noncontrast exam. No atherosclerotic disease. BOWEL: Distal small bowel, rectosigmoid colon, cecum, imaged ascending colon are intact. No bowel wall thickening. Prior appendectomy. MESENTERY: No free fluid, fluid collection or adenopathy. OSSEOUS STRUCTURES: No acute osseous injury. Diagnosis/Plan: There are no diagnoses linked to this encounter. Hepatitis C -Patient counselled to Avoid hepatotoxins and avoidance of EtOH; patient states he currently is not drinking -Recommended patient to avoid behaviors to reduce transmission 2 others: do not donate blood/tissue/semen & do not share razors, clippers, toothbrushes or items that may have been contaminated with blood. -Recommend that any close contacts who could have been exposed to of the patient s blood to be screened for hepatitis C and this was discussed with the patient - INR 1.16 mildly elevated, fibrosure 0.78 consistent with cirrhosis, alpha-fetoprotein which was normal -NS5A genotype 3 resistance testing: negative -Patient does have likely decompensated cirrhosis given varices noted. -Referral to GI clinic for EGD and assistance with management of end-stage liver disease placed on 06/09; still awaiting follow-up visit and this will be checked on to try to facilitate -CTP grade of 6 (additional point for low albumin) -per guidelines for patients with decompensated cirrhosis with genotype 1-6 who cannot utilize ribavarin in this case due to already notable cytopenias daily fixed dosing of sofosbuvir 400mg/velpatasvir 100mg (epclusa) x 24 weeks has a 1A rating. -Continue epclusa 08/23/22-current x 24 weeks; on 3rd month without issues - liver function test 10/27 only show mildly elevated bilirubin but no transaminase elevations, hepatitis C viral load is undetectable but will continue current treatment through final course and then we will need to check SVR 12 weeks after discontinuation Cirrhosis/possible esophageal varices -Patient has seen GI specialist -Testing including ISSAC, Anca, teddy, antimitochondrial antibody, EBV, CMV, ceruloplasmin were normal -EGD with varices, managed by GI Low potassium -Patient to discuss with primary -Patient is on diuretic which is likely contributing. -F/up labs show that this is normalized Fatigue -This is Likely multifactorial -Recommend taking hepatitis C treatment daily at bedtime to try to reduce the medications impact Joint pains -Suspect this is related to chronic arthritis, degenerative disease -Discussed with patient to avoid NSAIDs and Tylenol -Recommend following up with primary Positive hepatitis B core antibody -Patient is surface antibody positive but surface antigen negative -Obtained hepatitis B DNA level 06/09 which was negative -planned for follow-up testing once hepatitis C treatment is started, and this was performed on 09/13 and hepatitis B DNA remains undetectable, f/up 10/27 not detectable and LFTs ALT/AST normal on hepatitis C treatment Drug use -Recommend ongoing cessation, patient on cessation medication,he denies any recent use Health care maintenance -Patient is immune against hepatitis A and hepatitis B based on serologies -Recommend influenza, coronavirus, pneumococcal vaccinations but the patient has deferred previously -plan to discuss shingles vaccine at future visits History of alcohol abuse -Currently off of alcohol Pancytopenia -CBC with pancytopenia 04/30/2022 -Would not recommend pursuing ribavirin given low hemoglobin/blood cell counts -Folate and B12 levels 04/26/22 normal -white count 2.9, 3.2/ hemoglobin 10.2,10.6/ platelets 108, 117 - referral to hematology 09/29, pending appt Obesity -Patient with ongoing efforts to lose weight -BMI 30.4, 31.2, 31.6 Right lower extremity wound/feet& toe deformities -Patient sees podiatry Dr. Pelayo in [facility] -Placed c/s for podiatry -ongoing edema and would recommend to be hopper feeder although patient has difficulty getting them on and off and is having difficulty managing his right lower extremity wound. -Recommend wound care center evaluation as well as home nursing service to be placeds 3 times a week to assist with dressing changes as well as tubi hopper feeder Patient to follow-up within 2-3 weeks [address] Nathan Hayden documented in this encounter [facility] 11-03-2022 Miscellaneous Notes Addended by: RESHMA GOODRICH on: 11/03/2022 09:54 AM Modules accepted: Orders documented in this encounter [facility] 11-03-2022 Note Addended by: RESHMA CHANEL on: 11/03/2022 09:54 AM Modules accepted: Orders [facility] 10-21-2022 Nurse Note Patient's daughter, Jeny, just telephoned in; is 2 minutes from Hospital; instructed on where to fruit picker patient. IV discontinued with angiocath intact; no redness or edema noted a site; pressure drsg applied to site; patient tolerated procedure well and is getting dressed for discharge home. Dr. Suarez here speaking with patient, provides post procedure diagnosis, treatment provided and treatment recommended. Patient assisted to sit on side of cart, denies dizziness or lightheaded, call light with patient, side rail up x 1. Educated patient on post anesthesia safety precautions throughout next 24 hours; patient verbalizes understanding. Discharge instructions, and AVS, being provided to patient, by Mingo Britton LPN, after this RN reviewed documents. Patient's BP has improved, is alert, HOB elevated; patient taking nourishment of diet pepsi and peanut butter crackers; patient denies difficulty swallowing, pain or nausea. Patient to recovery bay 4; patient opens eyes to name, denies pain or nausea, then quickly closes his eyes again. documented in this encounter [facility] 10-21-2022 Nurse Surgical operation note Patient's daughter, Jeny, just telephoned in; is 2 minutes from Hospital; instructed on where to fruit picker patient. [facility] 10-21-2022 Nurse Surgical operation note IV discontinued with angiocath intact; no redness or edema noted a site; pressure drsg applied to site; patient tolerated procedure well and is getting dressed for discharge home. [facility] 10-21-[address] Suarez here speaking with patient, provides post procedure diagnosis, treatment provided and treatment recommended. [facility] 10-21-2022 Nurse Surgical operation note Patient assisted to sit on side of cart, denies dizziness or lightheaded, call light with patient, side rail up x 1. Educated patient on post anesthesia safety precautions throughout next 24 hours; patient verbalizes understanding. [facility] 10-21-2022 Nurse Surgical operation note Discharge instructions, and AVS, being provided to patient, by Mingo Britton LPN, after this RN reviewed documents. [facility] 10-21-2022 Nurse Surgical operation note Patient's BP has improved, is alert, HOB elevated; patient taking nourishment of diet pepsi and peanut butter crackers; patient denies difficulty swallowing, pain or nausea. [facility] 10-21-2022 Nurse Surgical operation note Patient to recovery bay 4; patient opens eyes to name, denies pain or nausea, then quickly closes his eyes again. [facility] 10-21-2022 Note Formatting of this n ote might be different from the original. See anesthesia record for vitals and medications given. [facility] 10-21-2022 Miscellaneous Notes See anesthesia record for vitals and medications given. documented in this encounter [facility] 09-29-2022 History of Present illness Narrative Review of Systems A complete review of systems are negative except those consistent with HPI No fevers, chills or sweats No cough, chest pain No dysphagia, odynophagia No abdominal pain, nausea, vomiting, diarrhea No dysuria, frequency, hematuria No headache, dizziness, focal neurologic complaints No ear pain No sinus pain No rash No weight loss No joint or muscular pain Recent travel history? no HPI Carmen Gilman 57 y.o. male presents today for Follow-up (Chronic hepatitis C without hepatic coma) The patient was referred for hepatitis C management. He has a history of hepatitis C for over 10 years and history of alcohol as well as drug use. Patient has a history of THC/marijuana as well as cocaine use. Patient has bilateral leg edema with history of right lower extremity ulcer, obesity, cirrhosis, pancytopenia, asthma, malnutrition, with a history of staph aureus colonization Patient was referred to infectious disease clinic 06/09 for history of hepatitis B and hepatitis C. Patient states recent history of admission to [facility] for falls. Patient had CT scan in April 2022 showing hepatosplenomegaly and varices. He denies a history of GI bleed to his recollection. Patient states he does not recall ever having an EGD. Unclear if he has had a history of encephalopathy or ascites. ID consult 06/09/2022 for hepatitis C management. Patient denies current drug use except for intermittent marijuana. Denies any tobacco or alcohol use which he states he quits. No current nausea, vomiting, jaundice or abdominal discomfort at initial consult date. Patient is intentionally losing weight. Trying to get his health back according to his report. ID clinic consult 06/09 Follow-up in ID clinic 06/23, labs were obtained during last visit and discussed with patient. Patient does have cirrhosis with underlying varices on imaging but otherwise does not have severe LFT or INR abnormalities. Patient denies any abdominal pain, nausea or vomiting, fevers, hematemesis, belly swelling or confusion. Denies any alcohol drugs or tobacco use. Here to discuss hepatitis C treatment regimens/plans. ID clinic appointment 07/07 and patient had referral to [facility] for medications. According to report, he did not want to speak with them however they were connected today during clinic to discuss treatment and to get to the patient the hepatitis C medication. Patient denies any abdominal pain. Has had some upper respiratory symptoms and states his grandson was also sick with a respiratory virus. Patient is having wheezing and states he needs to get an inhaler. No fevers or chills reported. No specific shortness of breath noted. Follow-up appointment 08/25. Patient did receive hepatitis C treatment on 08/23. [facility] and began to take. No current side effects at this time except for fatigue. Patient denies any nausea, vomiting, abdominal pain. No hematemesis or blood loss. No fevers or chills. Patient continues to get treated for right lower extremity wound and is seeing a consulting group analyst in [place] with improvement over time reported. Patient complains of diffuse joint pain which is ongoing but not associated with recent start of hepatitis C treatment. Patient endorses ongoing intentional weight loss. Follow-up appointment 09/29, patient is on hepatitis C therapy and is on second month. Patient states he is tolerating this well without issues. Patient is walking better. Still with fatigue. No significant GI complaints. Has more energy. No fevers or chills. Was then able to get his hepatitis C therapy this weekend as he missed the [employer] truck and so missed one dose of treatment but otherwise states excellent compliance. ROS Review of Systems A complete review of systems are negative except those consistent with HPI No fevers, chills or sweats No cough, chest pain No dysphagia, odynophagia No abdominal pain, nausea, vomiting, diarrhea No dysuria, frequency, hematuria No headache, dizziness, focal neurologic complaints No ear pain No sinus pain No rash No weight loss No joint or muscular pain Recent travel history? no HISTORY/ALLERGIES/MEDS No Known Allergies Past Medical History: Diagnosis Date Asthma Essential hypertension, benign MRSA (methicillin resistant staph aureus) culture positive rt. lower posteria leg Past Surgical History: Procedure Laterality Date APPENDECTOMY BACK SURGERY FOOT SURGERY Social History Socioeconomic History Marital status: Spouse name: Not on file Number of children: Not on file Years of education: Not on file Highest education level: Not on file Occupational History Employer: UNEMPLOYED Tobacco Use Smoking status: Former Types: Cigarettes Quit date: 2007 Years since quittin.1 Smokeless tobacco: Current Types: Chew Vaping Use Vaping Use: Never used Substance and Sexual Activity Alcohol use: Not Currently Drug use: Not Currently Types: Marijuana Comment: Former Sexual activity: Yes Partners: Female Other Topics Concern Service Not Asked Blood Transfusions Not Asked Caffeine Concern Not Asked Occupational Exposure Not Asked Hobby Hazards Not Asked Sleep Concern Not Asked Stress Concern Not Asked Weight Concern Not Asked Special Diet Not Asked Back Care Not Asked Exercise Not Asked Bike Helmet Not Asked Seat Belt Not Asked Domestic Violence No Social History Narrative Not on file Social Determinants of Health Financial Resource Strain: Not on file Food Insecurity: Not on file Transportation Needs: Not on file Physical Activity: Not on file Stress: Not on file Social Connections: Not on file Intimate Partner Violence: Not on file Housing Stability: Not on file Family History Problem Relation Age of Onset Heart Disease - Other Mother Diabetes Mother Heart Disease - Other Father Current Outpatient Medications: albuterol 108 (90 Base) MCG/ACT Aero Soln inhaler, Inhale 2 puffs every 4 hours as needed for Shortness of Breath or Wheezing., Disp: 18 g, Rfl: 0 ammonium lactate 12 % Cream cream, APPLY THIN LAYER TO AFFECTED AREA TWICE DAILY, Disp: , Rfl: Aspirin [address] tablet, Take 1 tablet by mouth daily., Disp: 30 tablet, Rfl: 11 buprenorphine 8 MG sublingual tablet, Place 1 tablet under tongue., Disp: , Rfl: clonazePAM 0.5 MG tablet, Take 1 tablet by mouth 2 times daily., Disp: , Rfl: Combivent Respimat 20-100 MCG/ACT Aero Soln inhaler, , Disp: , Rfl: diazepam 10 MG tablet, Take 1 tablet by mouth 3 times daily as needed., Disp: , Rfl: Glycopyrrolate-Formoterol (Bevespi Aerosphere) 9-4.8 MCG/ACT Aerosol, Inhale 2 puffs 2 times daily., Disp: 1 Inhaler, Rfl: 11 meloxicam 15 MG tablet, , Disp: , Rfl: mupirocin 2 % ointment, , Disp: , Rfl: predniSONE 10 MG tablet, TAKE 6 TABS BY MOUTH X 1 DAY & DECREASE BY ONE DAILY UNTIL GONE 6,5,4,3,2,1, Disp: , Rfl: Santyl 250 UNIT/GM Ointment, APPLY TO THE AFFECTED AREA(S) EVERY DAY FOR 14 DAYS, Disp: , Rfl: Symbicort 160-4.5 MCG/ACT Aerosol inhaler, INHALE 2 PUFFS BY MOUTH TWICE DAILY, Disp: , Rfl: clindamycin 300 MG capsule, Take 300 mg by mouth 3 times daily. (Patient not taking: Reported on 08/26/2022), Disp: , Rfl: furOSEmide 40 MG tablet, Take 1 tablet by mouth daily., Disp: 30 tablet, Rfl: 0 gabapentin 800 MG tablet, Take 1 tablet by mouth 3 times daily., Disp: 90 tablet, Rfl: 0 ibuprofen 800 MG tablet, , Disp: , Rfl: levoFLOXacin 500 MG tablet, , Disp: , Rfl: lisinopril 20 MG tablet, Take 1 tablet by mouth daily. (Patient not taking: Reported on 08/26/2022), Disp: 30 tablet, Rfl: 2 spironolactone 25 MG tablet, Take 1 tablet by mouth daily., Disp: 30 tablet, Rfl: 0 sulfamethoxazole-trimethoprim 800-160 MG per tablet, , Disp: , Rfl: Tamsulosin HCl 0.4 MG capsule, Take 1 capsule by mouth daily. (Patient not taking: Reported on 09/29/2022), Disp: , Rfl: EXAM BP 124/78 (BP Location: Left arm, BP Position: Sitting) Pulse 88 Temp 97.2 F (36.2 C) (Temporal) Resp 16 Ht 1.829 m (6') Wt 101.7 kg (224 lb 3.2 oz) SpO2 97% BMI 30.41 kg/m Smoking Status Former Physical Exam Vitals and nursing note reviewed. Constitutional: General: He is not in acute distress. Appearance: He is obese. He is not toxic-appearing. Comments: More alert and interactive today HENT: Head: Normocephalic and atraumatic. Mouth/Throat: Pharynx: Oropharynx is clear. No oropharyngeal exudate. Eyes: Extraocular Movements: Extraocular movements intact. Conjunctiva/sclera: Conjunctivae normal. Pupils: Pupils are equal, round, and reactive to light. Cardiovascular: Rate and Rhythm: Normal rate and regular rhythm. Pulses: Normal pulses. Heart sounds: No murmur heard. Pulmonary: Effort: Pulmonary effort is normal. No respiratory distress. Breath sounds: Normal breath sounds. No rhonchi or rales. Abdominal: General: Bowel sounds are normal. There is no distension. Palpations: Abdomen is soft. There is no mass. Tenderness: There is no abdominal tenderness. There is no guarding. Genitourinary: Comments: No CVA or suprapubic tenderness Musculoskeletal: General: No swelling or tenderness. Normal range of motion. Cervical back: Normal range of motion. No rigidity. Right lower leg: Edema present. Left lower leg: Edema present. Comments: Extremity edema, right lower extremity with posterior calf lower area wound dressed and he does not want this addressed during today's exam Skin: General: Skin is warm. Findings: No rash. Neurological: General: No focal deficit present. Mental Status: He is alert. Psychiatric: Mood and Affect: Mood normal. Behavior: Behavior normal. Thought Content: Thought content normal. Laboratories: CBC Lab Results Component Value Date WBC 2.9 (L) 09/13/2022 HGB 10.2 (L) 09/13/2022 HCT 32.3 (L) 09/13/2022 PLATELET 108 (L) 09/13/2022 MCV 70.1 (L) 09/13/2022 EDIF Lab Results Component Value Date RBCDISTRIBU 16.0 (H) 09/13/2022 EOSINOPHILS 1.8 09/13/2022 EOSINOPHILS 0.1 09/13/2022 BASOPHILS 0.5 09/13/2022 BASOPHILS 0.0 09/13/2022 LYMPHOCYTABS 0.8 (L) 09/13/2022 PLATELET 108 (L) 09/13/2022 MPV 7.8 09/13/2022 Lab Results Component Value Date SODIUM 131 (L) 09/13/2022 POTASSIUM 3.0 (L) 09/13/2022 CHLORIDE 90 (L) 09/13/2022 CO2 31 (H) 09/13/2022 BUN 15 09/13/2022 CREATSERUM 0.73 09/13/2022 GLUCOSE 100 09/13/2022 Hepatitis serology results: immune to hepatitis A and hepatitis B HIV results: negative Hepatitis C viral load: 440,000 on April 26, 2022 Hepatitis C genotype:3 Imagin. No thoracic traumatic injury. 2. No acute cardiopulmonary process. 3. Periesophageal varices related to portal hypertension. ABDOMEN/PELVIS: 1. Hepatosplenomegaly and cirrhotic liver, stable. No focal hepatic lesion. 2. Perihepatic ascites and mild periportal adenopathy. 3. Stable compression deformity at L2. No acute osseous injury. 4. Prior appendectomy. 5. Tavera catheter in place. [employer] Workstation ID: [id number] Narrative EXAMINATION: CT CHEST ABDOMEN PELVIS WITHOUT CONTRAST HISTORY: ORDERING SYSTEM PROVIDED HISTORY: Fall; Abdominal Pain; Sepsis of unknown origin, TECHNOLOGIST PROVIDED HISTORY: Illness/Other Reason for exam: Fall, abdominal pain, sepsis of unknown origin Encounter Type: Subsequent/Follow-up Additional signs and symptoms: ORDERING SYSTEM PROVIDED DIAGNOSIS CODES: I63.9 Cerebrovascular accident (CVA), unspecified mechanism (HCC) N17.9 Acute renal failure, unspecified acute renal failure type (HCC) A41.9 Sepsis, due to unspecified organism, unspecified whether acute organ dysfunction present (HCC) L03.119 Cellulitis of lower extremity, unspecified laterality I95.9 Hypotension, unspecified hypotension type COMPARISON: Chest x-ray 04/24/2022, pelvis and left femur x-rays 04/24/2022. Chest, abdomen and pelvis CT 06/03/2021. TECHNIQUE: Unenhanced helical imaging of the chest, abdomen, and pelvis is performed. Multiplanar reformatted images as well as coronal and sagittal MIP (maximum intensity projection) images are submitted. Dose reduction techniques were achieved by using: automated exposure control and/or adjustment of mA and/or kV according to patient size and/or use of iterative reconstruction technique. FINDINGS: CHEST: MEDIASTINUM: Cardiac size is normal. There is no pericardial effusion. The thoracic aorta is intact with normal origins of the great vessels. The esophagus is normal. Central airways are patent. No mediastinal or hilar adenopathy. The imaged thyroid is within normal limits. Periesophageal varices are noted. LUNGS AND PLEURA: Trace pleural effusions and minimal basilar atelectasis. Lungs are clear. No suspicious pulmonary nodules. OSSEOUS STRUCTURES: No acute osseous abnormality. No osseous injury. SOFT TISSUES: Bilateral left greater than right gynecomastia. ABDOMEN: SOLID ORGANS: The liver is cirrhotic and enlarged. The spleen is also markedly enlarged. No focal hepatic lesion. The hepatic density is normal. Gallbladder, biliary ducts, adrenal glands, kidneys, pancreas are all within normal limits. No renal calculi or hydronephrosis. BOWEL: The stomach, proximal small bowel and imaged portions of the colon are normal in course and caliber. No bowel wall thickening or pneumatosis. MESENTERY AND RETROPERITONEUM: Mildly enlarged gastrohepatic ligament and periportal lymph nodes. No mesenteric or retroperitoneal adenopathy. OSSEOUS STRUCTURES: Lower lumbar spine degenerative disease. Stable compression deformity of L2. No acute osseous injury. ABDOMINAL WALL AND SOFT TISSUES: No acute abnormality. PELVIS: GENITOURINARY: The distal ureters, urinary bladder, prostate and seminal vesicles are intact. Tavera catheter in place. There are no distal urinary tract calculi. VASCULATURE: Noncontrast exam. No atherosclerotic disease. BOWEL: Distal small bowel, rectosigmoid colon, cecum, imaged ascending colon are intact. No bowel wall thickening. Prior appendectomy. MESENTERY: No free fluid, fluid collection or adenopathy. OSSEOUS STRUCTURES: No acute osseous injury. Diagnosis/Plan: There are no diagnoses linked to this encounter. Hepatitis C -Patient counselled to Avoid hepatotoxins and avoidance of EtOH; patient states he currently is not drinking -Recommended patient to avoid behaviors to reduce transmission 2 others: do not donate blood/tissue/semen & do not share razors, clippers, toothbrushes or items that may have been contaminated with blood. -Recommend that any close contacts who could have been exposed to of the patient s blood to be screened for hepatitis C and this was discussed with the patient - INR 1.16 mildly elevated, fibrosure 0.78 consistent with cirrhosis, alpha-fetoprotein which was normal -NS5A genotype 3 resistance testing: negative -Patient does have likely decompensated cirrhosis given varices noted. -Referral to GI clinic for EGD and assistance with management of end-stage liver disease placed on 06/09; still awaiting follow-up visit and this will be checked on to try to facilitate -CTP grade of 6 (additional point for low albumin) -per guidelines for patients with decompensated cirrhosis with genotype 1-6 who cannot utilize ribavarin in this case due to already notable cytopenias daily fixed dosing of sofosbuvir 400mg/velpatasvir 100mg (epclusa) x 24 weeks has a 1A rating. -Continue epclusa 08/23/22-current x 24 weeks; on 2nd month without issues - liver function tests showed normal transaminases and mildly elevated bilirubin on 09/13 and will be monitored; follow-up labs including HCV viral load in 1 month for next visit Cirrhosis/possible esophageal varices -Patient has seen GI specialist -Testing including ISSAC, Anca, teddy, antimitochondrial antibody, EBV, CMV, ceruloplasmin were normal -pending EGD -Follow up per GI Low potassium -Patient to discuss with primary -Patient is on diuretic which is likely contributing. -Discussed with him dietary modifications as well Fatigue -This is Likely multifactorial -Recommend taking hepatitis C treatment daily at bedtime to try to reduce the medications impact Joint pains -Suspect this is related to chronic arthritis, degenerative disease -Discussed with patient to avoid NSAIDs and Tylenol -Recommend following up with primary Positive hepatitis B core antibody -Patient is surface antibody positive but surface antigen negative -Obtained hepatitis B DNA level 06/09 which was negative -planned for follow-up testing once hepatitis C treatment is started, and this was performed on 09/13 and hepatitis B DNA remains undetectable Drug use -Recommend ongoing cessation, patient on cessation medication,he denies any recent use Health care maintenance -Patient is immune against hepatitis A and hepatitis B based on serologies -Recommend influenza, coronavirus, pneumococcal vaccinations but the patient has deferred previously -plan to discuss shingles vaccine at future visits History of alcohol abuse -Currently off of alcohol Pancytopenia -CBC with pancytopenia 04/30/2022 -Would not recommend pursuing ribavirin given low hemoglobin/blood cell counts -Folate and B12 levels 04/26/22 normal -white count 2.9, hemoglobin 10.2, platelets 108 - referral to hematology 09/29 Obesity -Patient with ongoing efforts to lose weight -BMI 30.4 Right lower extremity wound -Patient sees podiatry Dr. Pelayo in [facility] -Patient was transferred here to podiatry at our facility and consult was placed -Patient has ongoing wound, does his own dressing changes daily, patient denies current infection and defers evaluation today Patient to follow-up within 3-4 weeks [address] Nathan Hayden documented in this encounter [facility] 09-29-2022 Miscellaneous Notes Addended by: LEEANN DON on: 09/29/2022 11:38 AM Modules accepted: Orders documented in this encounter [facility] 09-29-2022 Note Addended by: LEEANN DON on: 09/29/2022 11:38 AM Modules accepted: Orders [facility] 08-26-2022 History of Present illness Narrative Nurse Note: Review of Systems Gastrointestinal: Positive for constipation. All other systems reviewed and are negative. 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 Patient has a history of a heavy consumption of alcohol for approximately 8-10 years upwards of 1/2 gallon of hard liquor daily, he states abstinence for approximately 5 years currently There is a family history of hepatic disease nonspecific there is no diagnosed disease process known per the patient Recent laboratory revealed an alpha-fetoprotein level which was negative hep C positive most recent evaluation with RNA positivity May 2022 Recent total protein is 6.8 with an albumin of 2.5 alkaline phosphatase 58 AST 58 ALT 25 and total bilirubin 0.6 Patient's appears mildly confused examination is currently on hepatitis C therapy per infectious disease We discussed with the patient natural history of hepatic disease We discussed hepatitis C another primary hepatocellular diseases We discussed rule out of alternative etiologies to complete a primary liver workup We discussed likely etiologies of liver disease to include #1) toxic etiologies, #2) obstructive mechanisms, and #3) primary hepatocellular etiologies including acquired disease and/or genetic We discussed complications inclusive of esophageal varices splenomegaly etc. Ht 1.829 m (6') Wt 103 kg (227 lb) BMI 30.79 kg/m Smoking Status Former Past Medical History: Diagnosis Date Asthma Essential hypertension, benign MRSA (methicillin resistant staph aureus) culture positive rt. lower posteria leg Past Surgical History: Procedure Laterality Date APPENDECTOMY BACK SURGERY FOOT SURGERY Social History Socioeconomic History Marital status: Occupational History Employer: UNEMPLOYED Tobacco Use Smoking status: Former Types: Cigarettes Quit date: 2007 Years since quittin.0 Smokeless tobacco: Current Types: Chew Vaping Use Vaping Use: Never used Substance and Sexual Activity Alcohol use: Not Currently Drug use: Yes Types: Marijuana Comment: Former Sexual activity: Yes Partners: Female Other Topics Concern Domestic Violence No Current Outpatient Medications: albuterol 108 (90 Base) MCG/ACT Aero Soln inhaler, Inhale 2 puffs every 4 hours as needed for Shortness of Breath or Wheezing., Disp: 18 g, Rfl: 0 ammonium lactate 12 % Cream cream, APPLY THIN LAYER TO AFFECTED AREA TWICE DAILY, Disp: , Rfl: Aspirin [address] tablet, Take 1 tablet by mouth daily., Disp: 30 tablet, Rfl: 11 buprenorphine 8 MG sublingual tablet, Place 1 tablet under tongue., Disp: , Rfl: clonazePAM 0.5 MG tablet, Take 1 tablet by mouth 2 times daily., Disp: , Rfl: Combivent Respimat 20-100 MCG/ACT Aero Soln inhaler, , Disp: , Rfl: diazepam 10 MG tablet, Take 1 tablet by mouth 3 times daily as needed., Disp: , Rfl: Glycopyrrolate-Formoterol (Bevespi Aerosphere) 9-4.8 MCG/ACT Aerosol, Inhale 2 puffs 2 times daily., Disp: 1 Inhaler, Rfl: 11 meloxicam 15 MG tablet, , Disp: , Rfl: mupirocin 2 % ointment, , Disp: , Rfl: predniSONE 10 MG tablet, TAKE 6 TABS BY MOUTH X 1 DAY & DECREASE BY ONE DAILY UNTIL GONE 6,5,4,3,2,1, Disp: , Rfl: Santyl 250 UNIT/GM Ointment, APPLY TO THE AFFECTED AREA(S) EVERY DAY FOR 14 DAYS, Disp: , Rfl: sulfamethoxazole-trimethoprim 800-160 MG per tablet, , Disp: , Rfl: Symbicort 160-4.5 MCG/ACT Aerosol inhaler, INHALE 2 PUFFS BY MOUTH TWICE DAILY, Disp: , Rfl: Tamsulosin HCl 0.4 MG capsule, Take 1 capsule by mouth daily., Disp: , Rfl: clindamycin 300 MG capsule, Take 300 mg by mouth 3 times daily. (Patient not taking: Reported on 08/26/2022), Disp: , Rfl: furOSEmide 40 MG tablet, Take 1 tablet by mouth daily., Disp: 30 tablet, Rfl: 0 gabapentin 800 MG tablet, Take 1 tablet by mouth 3 times daily., Disp: 90 tablet, Rfl: 0 ibuprofen 800 MG tablet, , Disp: , Rfl: levoFLOXacin 500 MG tablet, , Disp: , Rfl: lisinopril 20 MG tablet, Take 1 tablet by mouth daily. (Patient not taking: Reported on 08/26/2022), Disp: 30 tablet, Rfl: 2 spironolactone 25 MG tablet, Take 1 tablet by mouth daily., Disp: 30 tablet, Rfl: 0 Patient has no known allergies. ROS: Cardiovascular-no reported chest pain or shortness breath Respiratory-no coughing no wheezing Gastroenterology-as per chief complaint Extremities-no gross edema deformity or dysfunction no obvious skin lesions Neurologic-no focal deficits no reported seizure or tremor Physical Exam: Alert gentleman appears somewhat confused examination no gross apparent distress to evaluation no obvious secondary characteristics of liver disease or gross deformities Cardiovascular-no reported chest pain or shortness of breath Respiratory-no coughing no wheezing and exam Neurologic-no focal deficits no obvious asterixis Abdomen-distended nontense Extremities-edema appearance of bilateral lower extremity swelling no obvious anasarca Assessment: Hepatic insufficiency questionable endstage liver disease Hepatitis C active by history currently under therapy History of excessive toxic exposure Secondary characteristics of liver disease pressure including confusion change in skin tone and color distal extremity edema No Current GI alarm symptoms Nonspecific family history of hepatic disease Plan: As per infectious disease Primary hepatocellular disease laboratory evaluation Supportive care EGD to exclude esophageal varices Further recommendations pending results documented in this encounter [facility] 08-26-2022 Instructions Zakiya Horan LPN - 08/26/2022 3:30 PM EST EGD INSTRUCTIONS - Antony Suarez DO SCHEDULED DATE: Sep 23 PREPARATION: 1. NO SOLID FOODS up to 12 hours before procedure 2. NO LIQUIDS, NOT EVEN WATER, 4 hours before procedure 3. TAKE BLOOD PRESSURE AND/OR HEART MEDICATIONS USUAL THE DAY OF YOUR PROCEDURE 4. YOU WILL BE ABLE TO EAT AFTER THE EXAMINATION IS OVER AND AFTER GOING HOME 5. DO NOT PLAN TO DRIVE OR OPERATE MECHANICAL OR ELECTIRCAL DEVICES FOR 24 HOURS AFTER YOUR PROCEDURE SINCE THE EFFECT OF THE SEDATIVE MEDICATION CAN LAST THAT LONG. YOU WLL RECEIVE A CALL THE DAY BEFORE YOUR PROCEDURE FROM THE HOSPITAL WITH THE ARRIVAL TIME FOR YOUR PROCEDURE AND INSTRUCTIONS TO WHERE YOU WILL GO You are responsible to check your insurance benefits and coverage for all procedures. If you have not heard from the hospital by 3:00pm the day before your procedure, call [phone] documented in this encounter [facility] 08-25-2022 History of Present illness Narrative Review of Systems A complete review of systems are negative except those consistent with HPI Yes fevers, chills or sweats No cough, chest pain No dysphagia, odynophagia No abdominal pain, nausea, vomiting, diarrhea No dysuria, frequency, hematuria No headache, dizziness, focal neurologic complaints No ear pain No sinus pain No rash No weight loss No joint or muscular pain Recent travel history no HPI Carmen Gilman 57 y.o. male presents today for Follow-up (Chronic hepatitis C without hepatic coma) The patient was referred for hepatitis C management. He has a history of hepatitis C for over 10 years and history of alcohol as well as drug use. Patient has a history of THC/marijuana as well as cocaine use. Patient has bilateral leg edema with history of right lower extremity ulcer, obesity, cirrhosis, pancytopenia, asthma, malnutrition, with a history of staph aureus colonization Patient was referred to infectious disease clinic 06/09 for history of hepatitis B and hepatitis C. Patient states recent history of admission to [facility] for falls. Patient had CT scan in April 2022 showing hepatosplenomegaly and varices. He denies a history of GI bleed to his recollection. Patient states he does not recall ever having an EGD. Unclear if he has had a history of encephalopathy or ascites. ID consult 06/09/2022 for hepatitis C management. Patient denies current drug use except for intermittent marijuana. Denies any tobacco or alcohol use which he states he quits. No current nausea, vomiting, jaundice or abdominal discomfort at initial consult date. Patient is intentionally losing weight. Trying to get his health back according to his report. ID clinic consult 06/09 Follow-up in ID clinic 06/23, labs were obtained during last visit and discussed with patient. Patient does have cirrhosis with underlying varices on imaging but otherwise does not have severe LFT or INR abnormalities. Patient denies any abdominal pain, nausea or vomiting, fevers, hematemesis, belly swelling or confusion. Denies any alcohol drugs or tobacco use. Here to discuss hepatitis C treatment regimens/plans. ID clinic appointment 07/07 and patient had referral to [facility] for medications. According to report, he did not want to speak with them however they were connected today during clinic to discuss treatment and to get to the patient the hepatitis C medication. Patient denies any abdominal pain. Has had some upper respiratory symptoms and states his grandson was also sick with a respiratory virus. Patient is having wheezing and states he needs to get an inhaler. No fevers or chills reported. No specific shortness of breath noted. Follow-up appointment 08/25. Patient did receive hepatitis C treatment on 08/23. [facility] and began to take. No current side effects at this time except for fatigue. Patient denies any nausea, vomiting, abdominal pain. No hematemesis or blood loss. No fevers or chills. Patient continues to get treated for right lower extremity wound and is seeing a consulting group analyst in [place] with improvement over time reported. Patient complains of diffuse joint pain which is ongoing but not associated with recent start of hepatitis C treatment. Patient endorses ongoing intentional weight loss. ROS Review of Systems A complete review of systems are negative except those consistent with HPI Yes fevers, chills or sweats No cough, chest pain No dysphagia, odynophagia No abdominal pain, nausea, vomiting, diarrhea No dysuria, frequency, hematuria No headache, dizziness, focal neurologic complaints No ear pain No sinus pain No rash No weight loss No joint or muscular pain Recent travel history no HISTORY/ALLERGIES/MEDS No Known Allergies Past Medical History: Diagnosis Date Asthma Essential hypertension, benign MRSA (methicillin resistant staph aureus) culture positive rt. lower posteria leg Past Surgical History: Procedure Laterality Date APPENDECTOMY BACK SURGERY FOOT SURGERY Social History Socioeconomic History Marital status: Spouse name: Not on file Number of children: Not on file Years of education: Not on file Highest education level: Not on file Occupational History Employer: UNEMPLOYED Tobacco Use Smoking status: Former Types: Cigarettes Quit date: 2007 Years since quittin.0 Smokeless tobacco: Current Types: Chew Vaping Use Vaping Use: Never used Substance and Sexual Activity Alcohol use: Not Currently Drug use: Yes Types: Marijuana Comment: Former Sexual activity: Not on file Other Topics Concern Service Not Asked Blood Transfusions Not Asked Caffeine Concern Not Asked Occupational Exposure Not Asked Hobby Hazards Not Asked Sleep Concern Not Asked Stress Concern Not Asked Weight Concern Not Asked Special Diet Not Asked Back Care Not Asked Exercise Not Asked Bike Helmet Not Asked Seat Belt Not Asked Domestic Violence No Social History Narrative Not on file Social Determinants of Health Financial Resource Strain: Not on file Food Insecurity: Not on file Transportation Needs: Not on file Physical Activity: Not on file Stress: Not on file Social Connections: Not on file Intimate Partner Violence: Not on file Housing Stability: Not on file Family History Problem Relation Age of Onset Heart Disease - Other Mother Diabetes Mother Heart Disease - Other Father Current Outpatient Medications: albuterol 108 (90 Base) MCG/ACT Aero Soln inhaler, Inhale 2 puffs every 4 hours as needed for Shortness of Breath or Wheezing., Disp: 18 g, Rfl: 0 ammonium lactate 12 % Cream cream, APPLY THIN LAYER TO AFFECTED AREA TWICE DAILY, Disp: , Rfl: Aspirin [address] tablet, Take 1 tablet by mouth daily., Disp: 30 tablet, Rfl: 11 buprenorphine 8 MG sublingual tablet, Place 1 tablet under tongue., Disp: , Rfl: Combivent Respimat 20-100 MCG/ACT Aero Soln inhaler, , Disp: , Rfl: diazepam 10 MG tablet, Take 1 tablet by mouth 3 times daily as needed., Disp: , Rfl: mupirocin 2 % ointment, , Disp: , Rfl: predniSONE 10 MG tablet, TAKE 6 TABS BY MOUTH X 1 DAY & DECREASE BY ONE DAILY UNTIL GONE 6,5,4,3,2,1, Disp: , Rfl: Santyl 250 UNIT/GM Ointment, APPLY TO THE AFFECTED AREA(S) EVERY DAY FOR 14 DAYS, Disp: , Rfl: Symbicort 160-4.5 MCG/ACT Aerosol inhaler, INHALE 2 PUFFS BY MOUTH TWICE DAILY, Disp: , Rfl: clindamycin 300 MG capsule, Take 300 mg by mouth 3 times daily. (Patient not taking: Reported on 06/09/2022), Disp: , Rfl: clonazePAM 0.5 MG tablet, Take 0.5 mg by mouth 2 times daily. (Patient not taking: Reported on 06/09/2022), Disp: , Rfl: furOSEmide 40 MG tablet, Take 1 tablet by mouth daily., Disp: 30 tablet, Rfl: 0 gabapentin 800 MG tablet, Take 1 tablet by mouth 3 times daily., Disp: 90 tablet, Rfl: 0 Glycopyrrolate-Formoterol (Bevespi Aerosphere) 9-4.8 MCG/ACT Aerosol, Inhale 2 puffs 2 times daily. (Patient not taking: Reported on 06/09/2022), Disp: 1 Inhaler, Rfl: 11 ibuprofen 800 MG tablet, , Disp: , Rfl: levoFLOXacin 500 MG tablet, , Disp: , Rfl: lisinopril 20 MG tablet, Take 1 tablet by mouth daily. (Patient not taking: Reported on 06/09/2022), Disp: 30 tablet, Rfl: 2 meloxicam 15 MG tablet, TAKE ONE (15MG) TABLET BY MOUTH EVERYDAY (Patient not taking: Reported on 06/09/2022), Disp: , Rfl: spironolactone 25 MG tablet, Take 1 tablet by mouth daily., Disp: 30 tablet, Rfl: 0 sulfamethoxazole-trimethoprim 800-160 MG per tablet, TAKE 1 TABLET BY MOUTH TWICE DAILY FOR 10 DAYS (Patient not taking: Reported on 06/09/2022), Disp: , Rfl: Tamsulosin HCl 0.4 MG capsule, Take 0.4 mg by mouth daily. (Patient not taking: Reported on 06/09/2022), Disp: , Rfl: EXAM BP 128/72 (BP Location: Left arm, BP Position: Sitting) Pulse 84 Temp 97.1 F (36.2 C) (Temporal) Resp 14 Ht 1.854 m (6' 1") Wt 103.5 kg (228 lb 3.2 oz) SpO2 94% BMI 30.11 kg/m Smoking Status Former Physical Exam Vitals and nursing note reviewed. Constitutional: General: He is not in acute distress. Appearance: He is obese. He is not toxic-appearing. HENT: Head: Normocephalic and atraumatic. Comments: Few oral petechia, dentures upper Mouth/Throat: Pharynx: Oropharynx is clear. No oropharyngeal exudate. Eyes: Extraocular Movements: Extraocular movements intact. Conjunctiva/sclera: Conjunctivae normal. Pupils: Pupils are equal, round, and reactive to light. Cardiovascular: Rate and Rhythm: Normal rate and regular rhythm. Pulses: Normal pulses. Heart sounds: No murmur heard. Pulmonary: Effort: No respiratory distress. Breath sounds: Normal breath sounds. No rhonchi or rales. Comments: Bilateral expiratory wheezing Abdominal: General: Bowel sounds are normal. There is no distension. Palpations: Abdomen is soft. There is no mass. Tenderness: There is no abdominal tenderness. There is no guarding. Genitourinary: Comments: No CVA or suprapubic tenderness Musculoskeletal: General: No swelling or tenderness. Normal range of motion. Cervical back: Normal range of motion. No rigidity. Right lower leg: Edema present. Left lower leg: Edema present. Comments: Extremity edema, right lower extremity with posterior calf lower area wound with no malodor or drainage. No signs of infection. Patient does have plantar aspect 2 cm firm around nodular area with no tenderness, erythema or warmth. Skin: General: Skin is warm. Findings: No rash. Neurological: General: No focal deficit present. Mental Status: He is alert. Psychiatric: Mood and Affect: Mood normal. Behavior: Behavior normal. Thought Content: Thought content normal. Laboratories: CBC Lab Results Component Value Date WBC 3.8 03/07/2022 HGB 11.0 (L) 03/07/2022 HCT 35.0 (L) 03/07/2022 PLATELET 122 (L) 03/07/2022 MCV 69.6 (L) 03/07/2022 EDIF Lab Results Component Value Date RBCDISTRIBU 15.9 (H) 03/07/2022 EOSINOPHILS 1.3 03/07/2022 EOSINOPHILS 0.00 03/07/2022 BASOPHILS 0.8 03/07/2022 BASOPHILS 0.0 03/07/2022 LYMPHOCYTABS 0.80 (L) 03/07/2022 PLATELET 122 (L) 03/07/2022 MPV 8.2 03/07/2022 Lab Results Component Value Date SODIUM 132 (L) 03/07/2022 POTASSIUM 3.4 (L) 03/07/2022 CHLORIDE 87 (L) 03/07/2022 CO2 38 (H) 03/07/2022 BUN 12 03/07/2022 CREATSERUM 0.82 03/07/2022 GLUCOSE 148 (H) 03/07/2022 Hepatitis serology results: immune to hepatitis A and hepatitis B HIV results: negative Hepatitis C viral load: 440,000 on April 26, 2022 Hepatitis C genotype:3 Imagin. No thoracic traumatic injury. 2. No acute cardiopulmonary process. 3. Periesophageal varices related to portal hypertension. ABDOMEN/PELVIS: 1. Hepatosplenomegaly and cirrhotic liver, stable. No focal hepatic lesion. 2. Perihepatic ascites and mild periportal adenopathy. 3. Stable compression deformity at L2. No acute osseous injury. 4. Prior appendectomy. 5. Tavera catheter in place. Climateminder/[employer] Workstation ID: [id number] Narrative EXAMINATION: CT CHEST ABDOMEN PELVIS WITHOUT CONTRAST HISTORY: ORDERING SYSTEM PROVIDED HISTORY: Fall; Abdominal Pain; Sepsis of unknown origin, TECHNOLOGIST PROVIDED HISTORY: Illness/Other Reason for exam: Fall, abdominal pain, sepsis of unknown origin Encounter Type: Subsequent/Follow-up Additional signs and symptoms: ORDERING SYSTEM PROVIDED DIAGNOSIS CODES: I63.9 Cerebrovascular accident (CVA), unspecified mechanism ([facility]) N17.9 Acute renal failure, unspecified acute renal failure type ([facility]) A41.9 Sepsis, due to unspecified organism, unspecified whether acute organ dysfunction present ([facility]) L03.119 Cellulitis of lower extremity, unspecified laterality I95.9 Hypotension, unspecified hypotension type COMPARISON: Chest x-ray 04/24/2022, pelvis and left femur x-rays 04/24/2022. Chest, abdomen and pelvis CT 06/03/2021. TECHNIQUE: Unenhanced helical imaging of the chest, abdomen, and pelvis is performed. Multiplanar reformatted images as well as coronal and sagittal MIP (maximum intensity projection) images are submitted. Dose reduction techniques were achieved by using: automated exposure control and/or adjustment of mA and/or kV according to patient size and/or use of iterative reconstruction technique. FINDINGS: CHEST: MEDIASTINUM: Cardiac size is normal. There is no pericardial effusion. The thoracic aorta is intact with normal origins of the great vessels. The esophagus is normal. Central airways are patent. No mediastinal or hilar adenopathy. The imaged thyroid is within normal limits. Periesophageal varices are noted. LUNGS AND PLEURA: Trace pleural effusions and minimal basilar atelectasis. Lungs are clear. No suspicious pulmonary nodules. OSSEOUS STRUCTURES: No acute osseous abnormality. No osseous injury. SOFT TISSUES: Bilateral left greater than right gynecomastia. ABDOMEN: SOLID ORGANS: The liver is cirrhotic and enlarged. The spleen is also markedly enlarged. No focal hepatic lesion. The hepatic density is normal. Gallbladder, biliary ducts, adrenal glands, kidneys, pancreas are all within normal limits. No renal calculi or hydronephrosis. BOWEL: The stomach, proximal small bowel and imaged portions of the colon are normal in course and caliber. No bowel wall thickening or pneumatosis. MESENTERY AND RETROPERITONEUM: Mildly enlarged gastrohepatic ligament and periportal lymph nodes. No mesenteric or retroperitoneal adenopathy. OSSEOUS STRUCTURES: Lower lumbar spine degenerative disease. Stable compression deformity of L2. No acute osseous injury. ABDOMINAL WALL AND SOFT TISSUES: No acute abnormality. PELVIS: GENITOURINARY: The distal ureters, urinary bladder, prostate and seminal vesicles are intact. Tavera catheter in place. There are no distal urinary tract calculi. VASCULATURE: Noncontrast exam. No atherosclerotic disease. BOWEL: Distal small bowel, rectosigmoid colon, cecum, imaged ascending colon are intact. No bowel wall thickening. Prior appendectomy. MESENTERY: No free fluid, fluid collection or adenopathy. OSSEOUS STRUCTURES: No acute osseous injury. Diagnosis/Plan: There are no diagnoses linked to this encounter. Hepatitis C -Patient counselled to Avoid hepatotoxins and avoidance of EtOH; patient states he currently is not drinking -Recommended patient to avoid behaviors to reduce transmission 2 others: do not donate blood/tissue/semen & do not share razors, clippers, toothbrushes or items that may have been contaminated with blood. -Recommend that any close contacts who could have been exposed to of the patient s blood to be screened for hepatitis C and this was discussed with the patient - INR 1.16 mildly elevated, fibrosure 0.78 consistent with cirrhosis, alpha-fetoprotein which was normal -NS5A genotype 3 resistance testing: negative -Patient does have likely decompensated cirrhosis given varices noted. -Referral to GI clinic for EGD and assistance with management of end-stage liver disease placed on 06/09; still awaiting follow-up visit and this will be checked on to try to facilitate -CTP grade of 6 (additional point for low albumin) -per guidelines for patients with decompensated cirrhosis with genotype 1-6 who cannot utilize ribavarin in this case due to already notable cytopenias daily fixed dosing of sofosbuvir 400mg/velpatasvir 100mg (epclusa) x 24 weeks has a 1A rating. -Continue epclusa 08/23/22-current x 24 weeks -With need to carefully monitor liver function as well as repeated hep B monitoring during therapy; plan repeat labs in 3 weeks once he gets started on treatment; labs ordered -recommend follow-up visit in 3-4 weeks Fatigue -This is Likely multifactorial -Recommend taking hepatitis C treatment daily at bedtime to try to reduce the medications in packed Joint pains -Suspect this is related to chronic arthritis, degenerative disease -Discussed with patient to avoid NSAIDs and Tylenol -Recommend following up with primary Positive hepatitis B core antibody -Patient is surface antibody positive but surface antigen negative -Obtained hepatitis B DNA level 06/09 which was negative -planned for follow-up testing once hepatitis C treatment is started Drug use -Recommend ongoing cessation, patient on cessation medication,he denies any recent use Health care maintenance -Patient is immune against hepatitis A and hepatitis B based on serologies -Recommend influenza, coronavirus, pneumococcal vaccinations but the patient has deferred previously -plan to discuss shingles vaccine at future visits Pancytopenia -CBC with pancytopenia 04/30/2022 -Would not recommend pursuing ribavirin given low hemoglobin/blood cell counts -Folate and B12 levels 04/26/22 normal -Consider referral to hematology -We will check follow-up CBC, pending draw Obesity -Patient with ongoing efforts to lose weight -patient's current weight is 228 pounds and he continues to modify diet to try to lose weight Right lower extremity wound -Patient sees podiatry Dr. [place] in [place] -No clear evidence of new infection -Patient has follow-up visit 08/26 -Ongoing wound care and elevation Patient to follow-up within 3-4 weeks [address] Nathan Hayden documented in this encounter [facility] 07-07-2022 History of Present illness Narrative Review of Systems A complete review of systems are negative except those consistent with HPI No fevers, chills or sweats No cough, chest pain No dysphagia, odynophagia No abdominal pain, nausea, vomiting, diarrhea No dysuria, frequency, hematuria No headache, dizziness, focal neurologic complaints No ear pain No sinus pain No rash No weight loss No joint or muscular pain Recent travel history? No HPI Carmen Gilman 56 y.o. male presents today for Follow-up and Hepatitis C The patient was referred for hepatitis C management. He has a history of hepatitis C for over 10 years and history of alcohol as well as drug use. Patient has a history of THC/marijuana as well as cocaine use. Patient has bilateral leg edema with history of right lower extremity ulcer, obesity, cirrhosis, pancytopenia, asthma, malnutrition, with a history of staph aureus colonization Patient was referred to infectious disease clinic 06/09 for history of hepatitis B and hepatitis C. Patient states recent history of admission to [facility] for falls. Patient had CT scan in April 2022 showing hepatosplenomegaly and varices. He denies a history of GI bleed to his recollection. Patient states he does not recall ever having an EGD. Unclear if he has had a history of encephalopathy or ascites. ID consult 06/09/2022 for hepatitis C management. Patient denies current drug use except for intermittent marijuana. Denies any tobacco or alcohol use which he states he quits. No current nausea, vomiting, jaundice or abdominal discomfort at initial consult date. Patient is intentionally losing weight. Trying to get his health back according to his report. ID clinic consult 06/09 Follow-up in ID clinic 06/23, labs were obtained during last visit and discussed with patient. Patient does have cirrhosis with underlying varices on imaging but otherwise does not have severe LFT or INR abnormalities. Patient denies any abdominal pain, nausea or vomiting, fevers, hematemesis, belly swelling or confusion. Denies any alcohol drugs or tobacco use. Here to discuss hepatitis C treatment regimens/plans. ID clinic appointment 07/07 and patient had referral to [facility] for medications. According to report, he did not want to speak with them however they were connected today during clinic to discuss treatment and to get to the patient the hepatitis C medication. Patient denies any abdominal pain. Has had some upper respiratory symptoms and states his grandson was also sick with a respiratory virus. Patient is having wheezing and states he needs to get an inhaler. No fevers or chills reported. No specific shortness of breath noted. ROS Review of Systems A complete review of systems are negative except those consistent with HPI No fevers, chills or sweats No cough, chest pain No dysphagia, odynophagia No abdominal pain, nausea, vomiting, diarrhea No dysuria, frequency, hematuria No headache, dizziness, focal neurologic complaints No ear pain No sinus pain No rash No weight loss No joint or muscular pain Recent travel history? No HISTORY/ALLERGIES/MEDS No Known Allergies Past Medical History: Diagnosis Date Asthma Essential hypertension, benign MRSA (methicillin resistant staph aureus) culture positive rt. lower posteria leg Past Surgical History: Procedure Laterality Date APPENDECTOMY BACK SURGERY FOOT SURGERY Social History Socioeconomic History Marital status: Spouse name: Not on file Number of children: Not on file Years of education: Not on file Highest education level: Not on file Occupational History Employer: UNEMPLOYED Tobacco Use Smoking status: Former Types: Cigarettes Quit date: 2007 Years since quittin.8 Smokeless tobacco: Current Types: Chew Vaping Use Vaping Use: Never used Substance and Sexual Activity Alcohol use: Not Currently Drug use: Yes Types: Marijuana Comment: Former Sexual activity: Not on file Other Topics Concern Service Not Asked Blood Transfusions Not Asked Caffeine Concern Not Asked Occupational Exposure Not Asked Hobby Hazards Not Asked Sleep Concern Not Asked Stress Concern Not Asked Weight Concern Not Asked Special Diet Not Asked Back Care Not Asked Exercise Not Asked Bike Helmet Not Asked Seat Belt Not Asked Domestic Violence No Social History Narrative Not on file Social Determinants of Health Financial Resource Strain: Not on file Food Insecurity: Not on file Transportation Needs: Not on file Physical Activity: Not on file Stress: Not on file Social Connections: Not on file Intimate Partner Violence: Not on file Housing Stability: Not on file Family History Problem Relation Age of Onset Heart Disease - Other Mother Diabetes Mother Heart Disease - Other Father Current Outpatient Medications: albuterol 108 (90 Base) MCG/ACT Aero Soln inhaler, Inhale 2 puffs every 4 hours as needed for Shortness of Breath or Wheezing., Disp: 18 g, Rfl: 0 ammonium lactate 12 % Cream cream, APPLY THIN LAYER TO AFFECTED AREA TWICE DAILY, Disp: , Rfl: Aspirin [address] tablet, Take 1 tablet by mouth daily., Disp: 30 tablet, Rfl: 11 buprenorphine 8 MG sublingual tablet, Place 8 mg under tongue., Disp: , Rfl: Combivent Respimat 20-100 MCG/ACT Aero Soln inhaler, , Disp: , Rfl: diazepam 10 MG tablet, Take 10 mg by mouth 3 times daily as needed., Disp: , Rfl: mupirocin 2 % ointment, , Disp: , Rfl: predniSONE 10 MG tablet, TAKE 6 TABS BY MOUTH X 1 DAY & DECREASE BY ONE DAILY UNTIL GONE 6,5,4,3,2,1, Disp: , Rfl: Santyl 250 UNIT/GM Ointment, APPLY TO THE AFFECTED AREA(S) EVERY DAY FOR 14 DAYS, Disp: , Rfl: Symbicort 160-4.5 MCG/ACT Aerosol inhaler, INHALE 2 PUFFS BY MOUTH TWICE DAILY, Disp: , Rfl: clindamycin 300 MG capsule, Take 300 mg by mouth 3 times daily. (Patient not taking: Reported on 06/09/2022), Disp: , Rfl: clonazePAM 0.5 MG tablet, Take 0.5 mg by mouth 2 times daily. (Patient not taking: Reported on 06/09/2022), Disp: , Rfl: furOSEmide 40 MG tablet, Take 1 tablet by mouth daily., Disp: 30 tablet, Rfl: 0 gabapentin 800 MG tablet, Take 1 tablet by mouth 3 times daily., Disp: 90 tablet, Rfl: 0 Glycopyrrolate-Formoterol (Bevespi Aerosphere) 9-4.8 MCG/ACT Aerosol, Inhale 2 puffs 2 times daily. (Patient not taking: Reported on 06/09/2022), Disp: 1 Inhaler, Rfl: 11 ibuprofen 800 MG tablet, , Disp: , Rfl: levoFLOXacin 500 MG tablet, , Disp: , Rfl: lisinopril 20 MG tablet, Take 1 tablet by mouth daily. (Patient not taking: Reported on 06/09/2022), Disp: 30 tablet, Rfl: 2 meloxicam 15 MG tablet, TAKE ONE (15MG) TABLET BY MOUTH EVERYDAY (Patient not taking: Reported on 06/09/2022), Disp: , Rfl: spironolactone 25 MG tablet, Take 1 tablet by mouth daily., Disp: 30 tablet, Rfl: 0 sulfamethoxazole-trimethoprim 800-160 MG per tablet, TAKE 1 TABLET BY MOUTH TWICE DAILY FOR 10 DAYS (Patient not taking: Reported on 06/09/2022), Disp: , Rfl: Tamsulosin HCl 0.4 MG capsule, Take 0.4 mg by mouth daily. (Patient not taking: Reported on 06/09/2022), Disp: , Rfl: EXAM BP 130/80 (BP Location: Right arm, BP Position: Sitting) Pulse 91 Temp 100.4 F (38 C) (Temporal) Resp 13 Ht 1.854 m (6' 1") Wt 109.7 kg (241 lb 12.8 oz) SpO2 96% BMI 31.90 kg/m Smoking Status Former Physical Exam Vitals and nursing note reviewed. Constitutional: General: He is not in acute distress. Appearance: He is obese. He is not toxic-appearing. HENT: Head: Normocephalic and atraumatic. Comments: Few oral petechia, dentures upper Mouth/Throat: Pharynx: Oropharynx is clear. No oropharyngeal exudate. Eyes: Extraocular Movements: Extraocular movements intact. Conjunctiva/sclera: Conjunctivae normal. Pupils: Pupils are equal, round, and reactive to light. Cardiovascular: Rate and Rhythm: Normal rate and regular rhythm. Pulses: Normal pulses. Heart sounds: No murmur heard. Pulmonary: Effort: No respiratory distress. Breath sounds: Normal breath sounds. No rhonchi or rales. Comments: Bilateral expiratory wheezing Abdominal: General: Bowel sounds are normal. There is no distension. Palpations: Abdomen is soft. There is no mass. Tenderness: There is no abdominal tenderness. There is no guarding. Genitourinary: Comments: No CVA or suprapubic tenderness Musculoskeletal: General: No swelling or tenderness. Normal range of motion. Cervical back: Normal range of motion. No rigidity. Right lower leg: Edema present. Left lower leg: Edema present. Comments: Extremity edema, right lower extremity with Teddy bandage in place which the patient did not want to have removed but the patient states that the underlying skin is improving Skin: General: Skin is warm. Findings: No rash. Comments: Right lower extremity region with dressing in place/bandage Neurological: General: No focal deficit present. Mental Status: He is alert. Psychiatric: Mood and Affect: Mood normal. Behavior: Behavior normal. Thought Content: Thought content normal. Laboratories: CBC Lab Results Component Value Date WBC 3.8 03/07/2022 HGB 11.0 (L) 03/07/2022 HCT 35.0 (L) 03/07/2022 PLATELET 122 (L) 03/07/2022 MCV 69.6 (L) 03/07/2022 EDIF Lab Results Component Value Date RBCDISTRIBU 15.9 (H) 03/07/2022 EOSINOPHILS 1.3 03/07/2022 EOSINOPHILS 0.00 03/07/2022 BASOPHILS 0.8 03/07/2022 BASOPHILS 0.0 03/07/2022 LYMPHOCYTABS 0.80 (L) 03/07/2022 PLATELET 122 (L) 03/07/2022 MPV 8.2 03/07/2022 Lab Results Component Value Date SODIUM 132 (L) 03/07/2022 POTASSIUM 3.4 (L) 03/07/2022 CHLORIDE 87 (L) 03/07/2022 CO2 38 (H) 03/07/2022 BUN 12 03/07/2022 CREATSERUM 0.82 03/07/2022 GLUCOSE 148 (H) 03/07/2022 Hepatitis serology results: immune to hepatitis A and hepatitis B HIV results: negative Hepatitis C viral load: 440,000 on April 26, 2022 Hepatitis C genotype:3 Imagin. No thoracic traumatic injury. 2. No acute cardiopulmonary process. 3. Periesophageal varices related to portal hypertension. ABDOMEN/PELVIS: 1. Hepatosplenomegaly and cirrhotic liver, stable. No focal hepatic lesion. 2. Perihepatic ascites and mild periportal adenopathy. 3. Stable compression deformity at L2. No acute osseous injury. 4. Prior appendectomy. 5. Tavera catheter in place. [facility] Workstation ID: [id number] Narrative EXAMINATION: CT CHEST ABDOMEN PELVIS WITHOUT CONTRAST HISTORY: ORDERING SYSTEM PROVIDED HISTORY: Fall; Abdominal Pain; Sepsis of unknown origin, TECHNOLOGIST PROVIDED HISTORY: Illness/Other Reason for exam: Fall, abdominal pain, sepsis of unknown origin Encounter Type: Subsequent/Follow-up Additional signs and symptoms: ORDERING SYSTEM PROVIDED DIAGNOSIS CODES: I63.9 Cerebrovascular accident (CVA), unspecified mechanism (HCC) N17.9 Acute renal failure, unspecified acute renal failure type (HCC) A41.9 Sepsis, due to unspecified organism, unspecified whether acute organ dysfunction present (HCC) L03.119 Cellulitis of lower extremity, unspecified laterality I95.9 Hypotension, unspecified hypotension type COMPARISON: Chest x-ray 04/24/2022, pelvis and left femur x-rays 04/24/2022. Chest, abdomen and pelvis CT 06/03/2021. TECHNIQUE: Unenhanced helical imaging of the chest, abdomen, and pelvis is performed. Multiplanar reformatted images as well as coronal and sagittal MIP (maximum intensity projection) images are submitted. Dose reduction techniques were achieved by using: automated exposure control and/or adjustment of mA and/or kV according to patient size and/or use of iterative reconstruction technique. FINDINGS: CHEST: MEDIASTINUM: Cardiac size is normal. There is no pericardial effusion. The thoracic aorta is intact with normal origins of the great vessels. The esophagus is normal. Central airways are patent. No mediastinal or hilar adenopathy. The imaged thyroid is within normal limits. Periesophageal varices are noted. LUNGS AND PLEURA: Trace pleural effusions and minimal basilar atelectasis. Lungs are clear. No suspicious pulmonary nodules. OSSEOUS STRUCTURES: No acute osseous abnormality. No osseous injury. SOFT TISSUES: Bilateral left greater than right gynecomastia. ABDOMEN: SOLID ORGANS: The liver is cirrhotic and enlarged. The spleen is also markedly enlarged. No focal hepatic lesion. The hepatic density is normal. Gallbladder, biliary ducts, adrenal glands, kidneys, pancreas are all within normal limits. No renal calculi or hydronephrosis. BOWEL: The stomach, proximal small bowel and imaged portions of the colon are normal in course and caliber. No bowel wall thickening or pneumatosis. MESENTERY AND RETROPERITONEUM: Mildly enlarged gastrohepatic ligament and periportal lymph nodes. No mesenteric or retroperitoneal adenopathy. OSSEOUS STRUCTURES: Lower lumbar spine degenerative disease. Stable compression deformity of L2. No acute osseous injury. ABDOMINAL WALL AND SOFT TISSUES: No acute abnormality. PELVIS: GENITOURINARY: The distal ureters, urinary bladder, prostate and seminal vesicles are intact. Tavera catheter in place. There are no distal urinary tract calculi. VASCULATURE: Noncontrast exam. No atherosclerotic disease. BOWEL: Distal small bowel, rectosigmoid colon, cecum, imaged ascending colon are intact. No bowel wall thickening. Prior appendectomy. MESENTERY: No free fluid, fluid collection or adenopathy. OSSEOUS STRUCTURES: No acute osseous injury. Diagnosis/Plan: There are no diagnoses linked to this encounter. Hepatitis C -Patient counselled to Avoid hepatotoxins and avoidance of EtOH; patient states he currently is not drinking -Recommended patient to avoid behaviors to reduce transmission 2 others: do not donate blood/tissue/semen & do not share razors, clippers, toothbrushes or items that may have been contaminated with blood. -Recommend that any close contacts who could have been exposed to of the patient s blood to be screened for hepatitis C and this was discussed with the patient -obtained INR 1.16 mildly elevated, fibrosure 0.78 consistent with cirrhosis, alpha-fetoprotein which was normal -NS5A genotype 3 resistance testing negative -Patient does have likely decompensated cirrhosis given varices noted. -Referral to GI clinic for EGD and assistance with management of end-stage liver disease placed on 06/09 -CTP grade of 6 (additional point for low albumin) -per guidelines for decompensated cirrhosis with genotype 1-6 who cannot utilize Ribavarin in this case due to already notable cytopenias daily fixed dosing of sofosbuvir 400mg/velpatasvir 100mg (epclusa) x 24 weeks has a 1A rating. -Discussed with [facility] today and patient was asked to call them during appointments and we also discussed with him treatment plans -discussed with patient taking daily at bedtime -Discussed that we would need to carefully follow him once he starts medication and that he should call us on initiation date as well as call us if there is issues that develop -With need to carefully monitor liver function as well as repeated hep B monitoring during therapy; plan repeat labs in 3 weeks once he gets started on treatment Positive hepatitis B core antibody -Patient is surface antibody positive but surface antigen negative -Obtained hepatitis B DNA level 06/09 which was negative -planned for follow-up testing once hepatitis C treatment is started Drug use -Recommend ongoing cessation, patient on cessation medication,he denies any recent use Health care maintenance -Patient is immune against hepatitis A and hepatitis B based on serologies -Recommend influenza, coronavirus, pneumococcal vaccinations but the patient has deferred previously Pancytopenia -CBC with pancytopenia 04/30/2022 -Would not recommend pursuing ribavirin given low hemoglobin/blood cell counts -Folate and B12 levels 04/26/22 normal -Consider referral to hematology -We will check follow-up CBC Obesity -Patient with ongoing efforts to lose weight Patient to follow-up within 3-4 weeks 28 min, labs ordered, care coordinated with [facility] for prescription Dr. Nathan Hayden documented in this encounter [facility] 06-07-2022 History of Present illness Narrative HPI Carmen Gilman male 1965 presents to the [facility] with Chief Complaint Patient presents with Referral Patient presents requesting a referral for a specialist to treat Hepatitis. He had an appointment with his PCP today and has not been given a follow up for hepatitis. States he is not receiving any treatment now. He denies SOB, abd distention. Desires to transfer care to [facility] providers. History No Known Allergies Current Outpatient Medications Medication Sig albuterol 108 (90 Base) MCG/ACT Aero Soln inhaler Inhale 2 puffs every 4 hours as needed for Shortness of Breath or Wheezing. ammonium lactate 12 % Cream cream APPLY THIN LAYER TO AFFECTED AREA TWICE DAILY Aspirin [address] tablet Take 1 tablet by mouth daily. buprenorphine [address] 8 mg under tongue. clindamycin 300 MG capsule Take 300 mg by mouth 3 times daily. clonazePAM 0.5 MG tablet Take 0.5 mg by mouth 2 times daily. Combivent Respimat 20-100 MCG/ACT Aero Soln inhaler diazepam 10 MG tablet Take 10 mg by mouth 3 times daily as needed. furOSEmide 40 MG tablet Take 1 tablet by mouth daily. gabapentin 800 MG tablet Take 1 tablet by mouth 3 times daily. Glycopyrrolate-Formoterol (Bevespi Aerosphere) 9-4.8 MCG/ACT Aerosol Inhale 2 puffs 2 times daily. ibuprofen 800 MG tablet levoFLOXacin 500 MG tablet lisinopril 20 MG tablet Take 1 tablet by mouth daily. meloxicam 15 MG tablet TAKE ONE (15MG) TABLET BY MOUTH EVERYDAY mupirocin 2 % ointment predniSONE 10 MG tablet TAKE 6 TABS BY MOUTH X 1 DAY & DECREASE BY ONE DAILY UNTIL GONE 6,5,4,3,2,1 Santyl 250 UNIT/GM Ointment APPLY TO THE AFFECTED AREA(S) EVERY DAY FOR 14 DAYS spironolactone 25 MG tablet Take 1 tablet by mouth daily. sulfamethoxazole-trimethoprim 800-160 MG per tablet TAKE 1 TABLET BY MOUTH TWICE DAILY FOR 10 DAYS Symbicort 160-4.5 MCG/ACT Aerosol inhaler INHALE 2 PUFFS BY MOUTH TWICE DAILY Tamsulosin HCl 0.4 MG capsule Take 0.4 mg by mouth daily. Family History Problem Relation Age of Onset Heart Disease - Other Mother Diabetes Mother Heart Disease - Other Father Past Medical History: Diagnosis Date Asthma Essential hypertension, benign MRSA (methicillin resistant staph aureus) culture positive rt. lower posteria leg Past Surgical History: Procedure Laterality Date APPENDECTOMY BACK SURGERY FOOT SURGERY Social History Socioeconomic History Marital status: Spouse name: Not on file Number of children: Not on file Years of education: Not on file Highest education level: Not on file Occupational History Employer: UNEMPLOYED Tobacco Use Smoking status: Former Types: Cigarettes Quit date: 2007 Years since quittin.8 Smokeless tobacco: Current Types: Chew Vaping Use Vaping Use: Never used Substance and Sexual Activity Alcohol use: Not Currently Drug use: Not Currently Comment: Former Sexual activity: Not on file Other Topics Concern Service Not Asked Blood Transfusions Not Asked Caffeine Concern Not Asked Occupational Exposure Not Asked Hobby Hazards Not Asked Sleep Concern Not Asked Stress Concern Not Asked Weight Concern Not Asked Special Diet Not Asked Back Care Not Asked Exercise Not Asked Bike Helmet Not Asked Seat Belt Not Asked Domestic Violence No Social History Narrative Not on file Social Determinants of Health Financial Resource Strain: Not on file Food Insecurity: Not on file Transportation Needs: Not on file Physical Activity: Not on file Stress: Not on file Social Connections: Not on file Intimate Partner Violence: Not on file Housing Stability: Not on file ROS Review of Systems 8 systems reviewed with patient, negative unless specifically mentioned in history of present illness PHYSICAL EXAM Visit Vitals BP 145/83 (BP Location: Right arm, BP Position: Sitting) Pulse 74 Temp 98.1 F (36.7 C) (Temporal) Resp 18 Ht 1.829 m (6') Wt 109.3 kg (240 lb 14.4 oz) SpO2 95% BMI 32.67 kg/m Physical Exam Vitals and nursing note reviewed. Constitutional: General: He is not in acute distress. Appearance: He is not diaphoretic. Comments: Frail appearing. Ambulates with a cane. HENT: Head: Normocephalic. Nose: Nose normal. Mouth/Throat: Mouth: Mucous membranes are dry. Pharynx: Oropharynx is clear. Eyes: Conjunctiva/sclera: Conjunctivae normal. Pupils: Pupils are equal, round, and reactive to light. Cardiovascular: Rate and Rhythm: Normal rate and regular rhythm. Heart sounds: Normal heart sounds. Pulmonary: Effort: Pulmonary effort is normal. No respiratory distress. Breath sounds: Wheezing present. Abdominal: General: Bowel sounds are normal. There is no distension. Palpations: Abdomen is soft. Tenderness: There is no abdominal tenderness. Musculoskeletal: Cervical back: Neck supple. Right lower le+ Edema present. Left lower le+ Edema present. Skin: General: Skin is warm and dry. Capillary Refill: Capillary refill takes less than 2 seconds. Neurological: General: No focal deficit present. Mental Status: He is alert and oriented to person, place, and time. Psychiatric: Mood and Affect: Mood normal. Behavior: Behavior normal. RESULTS No results found for this or any previous visit (from the past 1 hour(s)). ASSESSMENT/PLAN 1. Referral of patient 2. Chronic viral hepatitis B without delta agent and 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 3. Chronic hepatitis C without hepatic coma Orders Placed This Encounter AMB REFERRAL TO FAMILY PRACTICE AMB REFERRAL TO INFECTIOUS DISEASE ammonium lactate 12 % Cream cream Symbicort 160-4.5 MCG/ACT Aerosol inhaler clindamycin 300 MG capsule Santyl 250 UNIT/GM Ointment diazepam 10 MG tablet ibuprofen 800 MG tablet levoFLOXacin 500 MG tablet meloxicam 15 MG tablet mupirocin 2 % ointment sulfamethoxazole-trimethoprim 800-160 MG per tablet Tamsulosin HCl 0.4 MG capsule Patient in no acute distress. We discussed symptoms that would warrant ER visit. Provided referrals to ID and PCP as patient requested. If symptoms worsen patient was advised to follow up in our office, primary care provider or the Emergency Dept. Benefits, Risks, Contraindications, and Complications of recommended treatments were explained. The patient understands and agrees to proceed with plan. KIEL Dawson 06/07/2022 documented in this encounter [facility] 05-12-2022 Emergency department Note Pt left AMA. Pt offered wheel chair but denied it. Pt walked out of ER with unsteady gait and in stable condition. [facility] 05-12-2022 Emergency department Note Pt left AMA. Pt offered wheel chair but denied it. Pt walked out of ER with unsteady gait and in stable condition. Pt left AMA and signed paper work for leaving AMA. documented in this encounter [facility] 05-12-2022 Emergency department Note Pt left AMA and signed paper work for leaving AMA. [facility] 04-21-2022 Hospital course Narrative Images from the original note were not included. [facility] [place] [place] Carmen Gilman Admitted: 04/20/2022 Discharge Date: 04/21/22 PCP Handoff Patient left AGAINST MEDICAL ADVICE despite our recommendation to stay Clinical Summary obstructive pulmonary disease history of hypertension diabetes mellitus and substance abuse Including opioids acquired COVID infection in September 2021 associated dyspnea pneumonia and acute hypoxic respiratory failure required intubation and vent support complicated by encephalopathy is here s/p fall and reported pain and redness both legs, deep-seated ulcers in the right leg and noticed hypotension and rising creatinine on arrival Sepsis with hypotension S/p fall secondary to low blood pressure Cellulitis both legs Patient was treated with sepsis protocol, he was given below with IV antibiotics, aggressive IV hydration and blood pressure medication withheld, also consult was placed for podiatry to evaluate leg wounds. Unfortunately, patient insisted on leaving AGAINST MEDICAL ADVICE around noon today, he is aware of risk of complications of sepsis including , despite that he insisted on leaving AGAINST MEDICAL ADVICE, he was provided with Keflex to take as outpatient and he was advised to come back to the emergency department in the future It is worth mentioning that the patient urine toxicology was positive for cocaine, during this hospitalization he was maintained on Subutex, he insisted on getting IV pain medications Acute kidney injury IV hydration, improved History of hypertension Blood pressure medication we have held, continue to be hypotensive requiring IV boluses Polysubstance abuse, urine toxicology positive for cocaine Is maintained on Subutex' Chronic obstructive pulm disease Stable without evidence of exacerbation and no respiratory distress Discharge Medications Discharge Medications New Medications Details cephALEXin 500 MG capsule Commonly known as: KEFLEX Take 1 (one) capsule (500 mg total) by mouth 4 (four) times a day for 10 days . Quantity: 40 capsule Modified Medications Details * albuterol 90 mcg/actuation inhaler What changed: Another medication with the same name was removed. Continue taking this medication, and follow the directions you see here. Inhale 2 puffs every 6 (six) hours as needed for wheezing. * albuterol 2.5 mg /3 mL (0.083 %) nebulizer solution Commonly known as: PROVENTIL What changed: Another medication with the same name was removed. Continue taking this medication, and follow the directions you see here. Take 3 mL (2.5 mg total) by nebulization every 6 (six) hours as needed for wheezing . Quantity: 75 mL * albuterol 2.5 mg /3 mL (0.083 %) nebulizer solution Commonly known as: PROVENTIL What changed: Another medication with the same name was removed. Continue taking this medication, and follow the directions you see here. USE ONE AMPULE (3ML) BY NEBULIZER EVERY 6 HOURS NEEDED * Proventil HFA 90 mcg/actuation inhaler Generic drug: albuterol What changed: Another medication with the same name was removed. Continue taking this medication, and follow the directions you see here. Inhale 2 (two) puffs every 6 (six) hours as needed for wheezing . Quantity: 8 g * albuterol 2.5 mg /3 mL (0.083 %) nebulizer solution Commonly known as: PROVENTIL What changed: Another medication with the same name was removed. Continue taking this medication, and follow the directions you see here. Take 3 mL (2.5 mg total) by nebulization every 6 (six) hours as needed for wheezing . Quantity: 75 mL * There are duplicate medications prescribed to the patient Medications To Continue Details aspirin 81 MG EC tablet Take 81 mg by mouth daily . Bevespi Aerosphere 9-4.8 mcg Hfaa Generic drug: glycopyrrolate-formoteroL Inhale 2 puffs 2 (two) times a day . * buprenorphine HCL 8 mg SL Tablet Commonly known as: SUBUTEX Place 8 mg under the tongue 2 (two) times a day . * buprenorphine HCL 8 mg SL Tablet Commonly known as: SUBUTEX Place 8 mg under the tongue . * clonazePAM 0.5 MG tablet Commonly known as: KLONOPIN Take 0.5 mg by mouth 2 (two) times a day . * clonazePAM 1 MG tablet Commonly known as: KLONOPIN Take 1 mg by mouth 4 (four) times a day . Combivent Respimat 20-100 mcg/actuation Mist Generic drug: ipratropium-albuteroL Inhale 1-2 sprays every 4 to 6 hours as needed . diazePAM 10 MG tablet Commonly known as: VALIUM Take 1 (one) tablet (10 mg total) by mouth 3 (three) times a day . diltiazem 240 MG 24 hr capsule Commonly known as: TIAZAC Take 240 mg by mouth daily . * gabapentin 800 MG tablet Commonly known as: NEURONTIN Take 800 mg by mouth 3 (three) times a day. * gabapentin 800 MG tablet Commonly known as: NEURONTIN Take 800 mg by mouth 4 (four) times a day . pantoprazole 20 MG tablet Commonly known as: PROTONIX Take 1 (one) tablet (20 mg total) by mouth daily Start: 01/09/20. Quantity: 30 tablet predniSONE 10 MG tablet Commonly known as: DELTASONE Symbicort 160-4.5 mcg/actuation inhaler Generic drug: budesonide-formoteroL Inhale 2 puffs 2 (two) times a day . * There are duplicate medications prescribed to the patient Stopped Medications azithromycin 250 MG tablet Commonly known as: ZITHROMAX lisinopriL 40 MG tablet Commonly known as: PRINIVIL,ZESTRIL Physician(s) Follow Up: No follow-up provider specified. Condition at Discharge: Serious, AGAINST MEDICAL ADVICE Disposition: Home On day of discharge, I performed a final bedside evaluation including a physical exam. I reviewed discharge recommendations with the patient in person. Patient instructions, including activity, were given to the patient/family at discharge. Time spent on discharge: > 30 minutes Completed by: Mariana Lagunas on 04/21/22, 1:31 PM documented in this encounter [facility] 04-21-2022 Miscellaneous Notes AMA form signed. IV discontinued per pt request. Dressing change done to bilateral legs, wet to dry with teddy wrap and prism applied to right leg. Pt tolerated well. Pt states his speech is from being tired and states he feels fine. Pt aware he is able to return through the ER if he changes his mind about hospitalization and be re-evaluated. Pt refused wound culture to be obtained of his right leg. At 1243 pt notified antibiotic prescription is at his pharmacy. Problem: Actual or potential alteration in health Goal: Absence of healthcare acquired conditions Outcome: Partially Met Goal: Knowledge of Interdisciplinary Plan of Care Outcome: Partially Met Goal: Knowledge of Enviroment Outcome: Partially Met Problem: Pain Goal: Manage acute pain Outcome: Partially Met Goal: Manage chronic pain Outcome: Partially Met Goal: Reduced pain sensation Outcome: Partially Met Goal: Achievement of comfort function goal Outcome: Partially Met Problem: Falls, Risk of Goal: Absence of falls Outcome: Partially Met Problem: Pressure Ulcer - Risk of Goal: Absence of pressure ulcer Outcome: Partially Met Patient alert and oriented x3, Patient BP 90/50 Dr. Boudreaux aware. Discussed with pt regarding pt needed iv bolus and pt refused iv bolus. Pt wants AMA form and go home. Pt states he wants his percocet and since he can't get it he will be leaving AMA. Discussed with pt regarding low bp and he needs the bolus to help get his blood pressure up. Pt states he will not let me give him the bolus. Messaged dr regarding above. Will try to offer wound care to bilateral legs. Dr also asking for wound culture. Will try to obtain it after I get pt's permission. ED Attestation: I have reviewed the Advanced Practice Provider's (WHIT's) documention. In addition, I have personally introduced myself to the patient, and have taken his history and performed an examination. I agree with the physical findings, management, clinical impression and disposition. In brief, he is a 56 y.o. adult who presents with a chief complaint of Fall. After my evaluation, I noticed patient with hypotension. Patient has MARLENE. Possibly volume depleted. We will give IV fluids and reassess. Has some possible cellulitis to his legs. Has had this previously. Will give IV antibiotics. Lactic acid is normal. White count is normal. Will admit for the above. Resting comfortably. Patient did have a mechanical fall last night. X-ray showed no acute injury. Possibly fell because of hypotension Carolina Solis MD ED Attending Physician Emergency Department (Please note that portions of this note have been completed with a voice recognition software. Efforts were made to correct any errors, but occasionally words are mis-transcribed.) Associated Order(s): EKG 12-lead EKG 12-lead Date/Time: 04/20/2022 3:15 PM Performed by: Carolina Solis MD Authorized by: Carolina Solis MD Interpreted by ED attending physician Comparison: not compared with previous ECG Rhythm: sinus rhythm BPM: 69 Conduction: conduction normal ST Segments: ST segments normal T Inversion: V2 normal SC interval normal QRS interval normal QT interval Clinical impression: non-specific ECG documented in this encounter [facility] 04-21-2022 Note Formatting of this n ote might be different from the original. AMA form signed. IV discontinued per pt request. Dressing change done to bilateral legs, wet to dry with teddy wrap and prism applied to right leg. Pt tolerated well. Pt states his speech is from being tired and states he feels fine. Pt aware he is able to return through the ER if he changes his mind about hospitalization and be re-evaluated. Pt refused wound culture to be obtained of his right leg. At 1243 pt notified antibiotic prescription is at his pharmacy. [facility] 04-21-2022 Consult note Associated Order (s): IP CONSULT TO ENTEROSTOMAL THERAPY Wound care has been consulted for a wound to his leg. Podiatry has also been consulted for this same wound. We will defer to them for wound management. Lpapst RN woundcare [facility] 04-21-2022 Consult note Associated Order (s): IP CONSULT TO ENTEROSTOMAL THERAPY Wound care has been consulted for a wound to his leg. Podiatry has also been consulted for this same wound. We will defer to them for wound management. Lpapst RN woundcare documented in this encounter [facility] 04-21-2022 Note Formatting of this n ote might be different from the original. Problem: Actual or potential alteration in health Goal: Absence of healthcare acquired conditions Outcome: Partially Met Goal: Knowledge of Interdisciplinary Plan of Care Outcome: Partially Met Goal: Knowledge of Enviroment Outcome: Partially Met Problem: Pain Goal: Manage acute pain Outcome: Partially Met Goal: Manage chronic pain Outcome: Partially Met Goal: Reduced pain sensation Outcome: Partially Met Goal: Achievement of comfort function goal Outcome: Partially Met Problem: Falls, Risk of Goal: Absence of falls Outcome: Partially Met Problem: Pressure Ulcer - Risk of Goal: Absence of pressure ulcer Outcome: Partially Met [facility] 04-21-2022 Note Formatting of this n ote might be different from the original. Patient alert and oriented x3, Patient BP 90/50 Dr. Boudreaux aware. [facility] 04-21-2022 Note Formatting of this n ote might be different from the original. Discussed with pt regarding pt needed iv bolus and pt refused iv bolus. Pt wants AMA form and go home. Pt states he wants his percocet and since he can't get it he will be leaving AMA. Discussed with pt regarding low bp and he needs the bolus to help get his blood pressure up. Pt states he will not let me give him the bolus. Messaged regarding above. Will try to offer wound care to bilateral legs. Dr also asking for wound culture. Will try to obtain it after I get pt's permission. [facility] 04-20-2022 [place] and physical [place] [facility] [place] Patient Name: Carmen Gilman : 1965 MR #: [id number] Admit Date: 04/20/2022 Physicians: Ani Worley CNP (Family); No ref. provider found (Referring) Carmen Gilman is a 56 y.o. adult patient of Ani Worley CNP with history of chronic obstructive pulmonary disease history of hypertension diabetes mellitus and substance abuse Including opioids acquired COVID infection in September 2021 associated dyspnea pneumonia and acute hypoxic respiratory failure required intubation and vent support complicated by encephalopathy is here s/p fall and reported pain and redness both legs, deep-seated ulcers in the right leg and noticed hypotension and rising creatinine on arrival Hypotension hypovolemic/concern of sepsis mediated S/p fall secondary to low blood pressure No evidence of traumatic injury or fractures, will hold antihypertensives given fluid boluses on arrival to the emergency department and lactic acid within normal, good responding to the fluid expansion, follow septic work-up and broad-spectrum antibiotics for now. Cellulitis both legs Has deep-seated ulcer in the right leg Will consult podiatry and continue broad-spectrum antibiotics, Doppler ultrasound rule out DVTs Acute kidney injury Hemodynamic and sepsis mediated Will follow the trend of kidney function given fluid resuscitation, avoid hypotension, send for urinalysis and urine sodium, renal ultrasound History of hypertension Home regimen includes lisinopril and diltiazem we will hold both of them Polysubstance abuse Is maintained on Subutex' Urine toxicology still pending Chronic obstructive pulm disease Stable without evidence of exacerbation and no respiratory distress Admitted From: home Medication Reconciliation: Verified Code Status: Full Code - Unverified Quality Measures DVT Prophylaxis: heparin subcutaneous Tavera Catheter: absent Select if patient admitted to non-critical care location with primary problem that is cardiac in nature The following Vizient risk variables were noted and present on admission: Acute Kidney Injury Please see assessment and plan for further details. Chief Complaint status post fall and weakness History of Present Illness Carmen Gilman is a 56 y.o. adult patient of Ani Worley CNP with history of chronic obstructive pulmonary disease history of hypertension diabetes mellitus and substance abuse Including opioids acquired COVID infection in September 2021 associated dyspnea pneumonia and acute hypoxic respiratory failure required intubation and vent support complicated by encephalopathy is here s/p fall and reported pain and redness both legs, deep-seated ulcers in the right leg and noticed hypotension and rising creatinine on arrival, Presents to the emergency department today after fall last night. States that he tripped and fell onto his knees and onto an air mattress. He was unable to get himself up because of the pain and weakness. Denies hitting his head or losing consciousness. No neck or back pain. He reports bilateral leg pain, swelling. Patient has a blood pressure 77/40 on arrival. Patient appears generally weak and ill. Notes that he has had chronic swelling to bilateral lower extremities and reports the pain has not increased recently. He has been on antibiotics for his leg swelling and redness but not on current antibiotics. He is unsure of fever. No chest pain, shortness of breath or dizziness. No nausea, vomiting or diarrhea. Past Medical History Past Medical History: Diagnosis Date Anxiety Arrhythmia Arthritis Asthma COPD (chronic obstructive pulmonary disease) ([facility]) Diabetes (HCC) Hypertension Opioid dependence ([facility]) Past Surgical History Past Surgical History: Procedure Laterality Date APPENDECTOMY ARTHROPLASTY KNEE TOTAL ROBOTIC ASSISTED Right 01/08/2020 Procedure: Right Total Knee Replacement Robotic; Surgeon: Sofía Dukes MD; Location: [place]; Service: Ortho-Robotics FOOT SURGERY Left MANDIBLE FRACTURE SURGERY ORTHOPEDIC SURGERY Right knee THORACIC DUCT LIGATION 01/15/2017 THORACIC DUCT LIGATION Family History Family History Problem Relation Age of Onset Heart disease Mother Diabetes Mother Social History Social History Tobacco Use Smoking Status Former Smokeless Tobacco Current Types: Chew Social History Substance and Sexual Activity Alcohol Use Not Currently Social History Substance and Sexual Activity Drug Use Never Types: Marijuana Allergy Information I have reviewed the patient's allergies. Patient has no known allergies. Home Medications Home medications were reviewed. Review Of Systems All systems have been reviewed and are negative except as noted in HPI or below Physical Examination BP 105/66 (BP Location: Left arm, Patient Position: Lying) Pulse 76 Temp 97.6 F (36.4 C) (Oral) Resp 18 Ht 6' Wt 122.6 kg (270 lb 4.5 oz) SpO2 97% BMI 36.66 kg/m General Appearance: alert; acutely ill appearing; in mild acute distress HEENT: Head- normocephalic; Eyes- EOMI, sclera anicteric; Ears- hearing intact; Nose- no nasal discharge; Throat- mucous membranes moist Cardiovascular: regular rate and rhythm; normal S1, S2; no murmurs, rubs, clicks or gallops; no peripheral edema Respiratory: lungs clear to auscultation; without wheezes, rales or rhonchi; on room air Abdomen: soft, non-tender, non-distended; positive bowel sounds Neurological: oriented x 3; normal speech; no focal findings or movement disorder noted Musculoskeletal: no significant deformity or tenderness to palpation Skin: Swelling in both legs and deep seated ulcer about 3 to 4 cm in diameter in the back of the right leg, erythematous changes and tenderness palpating both legs Psych: normal mood and affect Laboratory and Additional Data Reviewed Laboratory 04/20/22 9:28 PM Radiology 04/20/22 9:28 PM [facility] 04-20-2022 History and physical note [facility] [place] Patient Name: Carmen Gilman : 1965 MR #: [id number] Admit Date: 04/20/2022 Physicians: Ani Worley CNP (Family); No ref. provider found (Referring) Carmen Gilman is a 56 y.o. adult patient of Ani Worley CNP with history of chronic obstructive pulmonary disease history of hypertension diabetes mellitus and substance abuse Including opioids acquired COVID infection in September 2021 associated dyspnea pneumonia and acute hypoxic respiratory failure required intubation and vent support complicated by encephalopathy is here s/p fall and reported pain and redness both legs, deep-seated ulcers in the right leg and noticed hypotension and rising creatinine on arrival Hypotension hypovolemic/concern of sepsis mediated S/p fall secondary to low blood pressure No evidence of traumatic injury or fractures, will hold antihypertensives given fluid boluses on arrival to the emergency department and lactic acid within normal, good responding to the fluid expansion, follow septic work-up and broad-spectrum antibiotics for now. Cellulitis both legs Has deep-seated ulcer in the right leg Will consult podiatry and continue broad-spectrum antibiotics, Doppler ultrasound rule out DVTs Acute kidney injury Hemodynamic and sepsis mediated Will follow the trend of kidney function given fluid resuscitation, avoid hypotension, send for urinalysis and urine sodium, renal ultrasound History of hypertension Home regimen includes lisinopril and diltiazem we will hold both of them Polysubstance abuse Is maintained on Subutex' Urine toxicology still pending Chronic obstructive pulm disease Stable without evidence of exacerbation and no respiratory distress Admitted From: home Medication Reconciliation: Verified Code Status: Full Code - Unverified Quality Measures DVT Prophylaxis: heparin subcutaneous Tavera Catheter: absent Select if patient admitted to non-critical care location with primary problem that is cardiac in nature The following Vizient risk variables were noted and present on admission: Acute Kidney Injury Please see assessment and plan for further details. Chief Complaint status post fall and weakness History of Present Illness Carmen Gilman is a 56 y.o. adult patient of Ani Worley CNP with history of chronic obstructive pulmonary disease history of hypertension diabetes mellitus and substance abuse Including opioids acquired COVID infection in September 2021 associated dyspnea pneumonia and acute hypoxic respiratory failure required intubation and vent support complicated by encephalopathy is here s/p fall and reported pain and redness both legs, deep-seated ulcers in the right leg and noticed hypotension and rising creatinine on arrival, Presents to the emergency department today after fall last night. States that he tripped and fell onto his knees and onto an air mattress. He was unable to get himself up because of the pain and weakness. Denies hitting his head or losing consciousness. No neck or back pain. He reports bilateral leg pain, swelling. Patient has a blood pressure 77/40 on arrival. Patient appears generally weak and ill. Notes that he has had chronic swelling to bilateral lower extremities and reports the pain has not increased recently. He has been on antibiotics for his leg swelling and redness but not on current antibiotics. He is unsure of fever. No chest pain, shortness of breath or dizziness. No nausea, vomiting or diarrhea. Past Medical History Past Medical History: Diagnosis Date Anxiety Arrhythmia Arthritis Asthma COPD (chronic obstructive pulmonary disease) ([facility]) Diabetes ([facility]) Hypertension Opioid dependence ([facility]) Past Surgical History Past Surgical History: Procedure Laterality Date APPENDECTOMY ARTHROPLASTY KNEE TOTAL ROBOTIC ASSISTED Right 01/08/2020 Procedure: Right Total Knee Replacement Robotic; Surgeon: Sofía Dukes MD; Location: [facility]; Service: Ortho-Robotics FOOT SURGERY Left MANDIBLE FRACTURE SURGERY ORTHOPEDIC SURGERY Right knee THORACIC DUCT LIGATION 01/15/2017 THORACIC DUCT LIGATION Family History Family History Problem Relation Age of Onset Heart disease Mother Diabetes Mother Social History Social History Tobacco Use Smoking Status Former Smokeless Tobacco Current Types: Chew Social History Substance and Sexual Activity Alcohol Use Not Currently Social History Substance and Sexual Activity Drug Use Never Types: Marijuana Allergy Information I have reviewed the patient's allergies. Patient has no known allergies. Home Medications Home medications were reviewed. Review Of Systems All systems have been reviewed and are negative except as noted in HPI or below Physical Examination BP 105/66 (BP Location: Left arm, Patient Position: Lying) Pulse 76 Temp 97.6 F (36.4 C) (Oral) Resp 18 Ht 6' Wt 122.6 kg (270 lb 4.5 oz) SpO2 97% BMI 36.66 kg/m General Appearance: alert; acutely ill appearing; in mild acute distress HEENT: Head- normocephalic; Eyes- EOMI, sclera anicteric; Ears- hearing intact; Nose- no nasal discharge; Throat- mucous membranes moist Cardiovascular: regular rate and rhythm; normal S1, S2; no murmurs, rubs, clicks or gallops; no peripheral edema Respiratory: lungs clear to auscultation; without wheezes, rales or rhonchi; on room air Abdomen: soft, non-tender, non-distended; positive bowel sounds Neurological: oriented x 3; normal speech; no focal findings or movement disorder noted Musculoskeletal: no significant deformity or tenderness to palpation Skin: Swelling in both legs and deep seated ulcer about 3 to 4 cm in diameter in the back of the right leg, erythematous changes and tenderness palpating both legs Psych: normal mood and affect Laboratory and Additional Data Reviewed Laboratory 04/20/22 9:28 PM Radiology 04/20/22 9:28 PM documented in this encounter [facility] 04-20-2022 History of Present illness Narrative Pharmacy to Dose Antimicrobials Assessment / Plan: Carmen Gilman is a 56 y.o. adult initiated on vancomycin for sepsis. Vancomycin trough goal is 15-20 mcg/mL. Will obtain level when at steady state or when clinically appropriate. Will monitor serum creatinine levels and urine output (if available) daily. Pharmacy will continue to follow and make adjustments as needed. Please use [employer] to call pharmacy or secure chat the assigned pharmacist with questions. Dosing for this admission: Date Dose and interval before level (or initial dose) Level Time between level drawn and last dose (hours) Dose and interval after level Notes / Follow up level in __ days/doses 04/20 2000mg q 36 hrs -- -- -- 04/23 Other active antibiotics include: piperacillin-tazobactam 3.375mg q8h Objective: Lab Results Component Value Date CREATININE 2.30 (H) 04/20/2022 CREATININE 0.68 01/31/2022 CREATININE 0.68 10/02/2021 CREATININE 0.76 10/01/2021 CREATININE 1.18 09/30/2021 Lab Results Component Value Date WBC 3.28 (L) 04/20/2022 WBC 3.98 (L) 01/31/2022 WBC 6.02 10/02/2021 WBC 7.66 10/01/2021 WBC 12.68 (H) 09/30/2021 Ht Readings from Last 1 Encounters: 04/20/22 6' (182.9 cm) Wt Readings from Last 1 Encounters: 04/20/22 122.6 kg (270 lb 4.5 oz) Cliff body weight: 77.6 kg (171 lb 1.2 oz) Adjusted ideal body weight: 95.6 kg (210 lb 12.2 oz) Patient Tmax (last 24 hours): 98 F Micro: pending Pharmacist: Kanika Quintero RPh,PharmD Contact: [phone] documented in this encounter [facility] 04-20-2022 Note Formatting of this n ote might be different from the original. ED Attestation: I have reviewed the Advanced Practice Provider's (WHIT's) documention. In addition, I have personally introduced myself to the patient, and have taken his history and performed an examination. I agree with the physical findings, management, clinical impression and disposition. In brief, he is a 56 y.o. adult who presents with a chief complaint of Fall. After my evaluation, I noticed patient with hypotension. Patient has MARLENE. Possibly volume depleted. We will give IV fluids and reassess. Has some possible cellulitis to his legs. Has had this previously. Will give IV antibiotics. Lactic acid is normal. White count is normal. Will admit for the above. Resting comfortably. Patient did have a mechanical fall last night. X-ray showed no acute injury. Possibly fell because of hypotension Carolina Solis MD ED Attending Physician Emergency Department (Please note that portions of this note have been completed with a voice recognition software. Efforts were made to correct any errors, but occasionally words are mis-transcribed.) [facility] Work Phone: 04-20-2022 Physician Emergency department Note Images from the original note were not included. [facility] ED WHIT Note: NAME: Carmen Gilman 56 y.o. CSN: [id number] PCP: Ani Worley CNP History: Chief Complaint: Fall HPI: The history was obtained from the patient. Carmen is a 56 y.o. adult who presents with a chief complaint of Fall. Patient has a history of asthma, COPD, diabetes, hypertension, opioid dependence. Presents to the emergency department today after fall last night. States that he tripped and fell onto his knees and onto an air mattress. He was unable to get himself up because of the pain and weakness. Denies hitting his head or losing consciousness. No neck or back pain. He reports bilateral leg pain, swelling. Patient has a blood pressure 77/40 on arrival. Patient appears generally weak and ill. Notes that he has had chronic swelling to bilateral lower extremities and reports the pain has not increased recently. He has been on antibiotics for his leg swelling and redness but not on current antibiotics. He is unsure of fever. No chest pain, shortness of breath or dizziness. No nausea, vomiting or diarrhea. PMHx: Past Medical History: Diagnosis Date Anxiety Arrhythmia Arthritis Asthma COPD (chronic obstructive pulmonary disease) (HCC) Diabetes (HCC) Hypertension Opioid dependence (HCC) PMSx: Past Surgical History: Procedure Laterality Date APPENDECTOMY ARTHROPLASTY KNEE TOTAL ROBOTIC ASSISTED Right 01/08/2020 Procedure: Right Total Knee Replacement Robotic; Surgeon: Sofía Dukes MD; Location: Main OR; Service: Ortho-Robotics FOOT SURGERY Left MANDIBLE FRACTURE SURGERY ORTHOPEDIC SURGERY Right knee THORACIC DUCT LIGATION 01/15/2017 THORACIC DUCT LIGATION FAM. Hx: Family History Problem Relation Age of Onset Heart disease Mother Diabetes Mother SOC. Hx: Social History Socioeconomic History Marital status: Single Tobacco Use Smoking status: Former Smokeless tobacco: Current Types: Chew Vaping Use Vaping Use: Never used Substance and Sexual Activity Alcohol use: Not Currently Drug use: Never Types: Marijuana Sexual activity: Not Currently Social History Narrative Merged History Encounter Merged History Encounter MEDs: Previous Medications Medication Sig albuterol (PROVENTIL) 2.5 mg /3 mL (0.083 %) nebulizer solution Take 3 mL (2.5 mg total) by nebulization every 6 (six) hours as needed for wheezing . albuterol (PROVENTIL) 2.5 mg /3 mL (0.083 %) nebulizer solution USE ONE AMPULE (3ML) BY NEBULIZER EVERY 6 HOURS NEEDED albuterol (PROVENTIL) 2.5 mg /3 mL (0.083 %) nebulizer solution Take 3 mL (2.5 mg total) by nebulization every 6 (six) hours as needed for wheezing . albuterol 90 mcg/actuation inhaler Inhale 2 puffs every 6 (six) hours as needed for wheezing. albuterol 90 mcg/actuation inhaler Inhale 2 (two) puffs every 6 (six) hours as needed for wheezing . aspirin 81 MG EC tablet Take 81 mg by mouth daily . azithromycin (ZITHROMAX) 250 MG tablet 2 tabs day 1 and 1 daily TG . Bevespi Aerosphere 9-4.8 mcg HFAA Inhale 2 puffs 2 (two) times a day . buprenorphine HCL (SUBUTEX) [address] 8 mg under the tongue 2 (two) times a day . buprenorphine HCL (SUBUTEX) [address] 8 mg under the tongue . clonazePAM (KLONOPIN) 0.5 MG tablet Take 0.5 mg by mouth 2 (two) times a day . clonazePAM (KLONOPIN) 1 MG tablet Take 1 mg by mouth 4 (four) times a day . Combivent Respimat 20-100 mcg/actuation Mist Inhale 1-2 sprays every 4 to 6 hours as needed . diltiazem (TIAZAC) 240 MG 24 hr capsule Take 240 mg by mouth daily . gabapentin (NEURONTIN) 800 MG tablet Take 800 mg by mouth 3 (three) times a day. gabapentin (NEURONTIN) 800 MG tablet Take 800 mg by mouth 4 (four) times a day . lisinopriL (PRINIVIL,ZESTRIL) 40 MG tablet Take 40 mg by mouth daily . pantoprazole (PROTONIX) 20 MG tablet Take 1 (one) tablet (20 mg total) by mouth daily Start: 01/09/20. predniSONE (DELTASONE) 10 MG tablet Proventil HFA 90 mcg/actuation inhaler Inhale 2 (two) puffs every 6 (six) hours as needed for wheezing . Symbicort 160-4.5 mcg/actuation inhaler Inhale 2 puffs 2 (two) times a day . ALL: No Known Allergies ROS: Positives and pertinent negatives as per HPI. All other systems were reviewed and are negative. Physical Exam: Patient Vitals for the past 24 hrs: BP Temp Pulse Resp SpO2 Weight 04/20/22 1723 (!) 96/54 -- -- -- -- -- 04/20/22 1715 (!) 96/54 -- (!) 107 (!) 19 94 % -- 04/20/22 1502 -- -- -- -- -- 122.5 kg (270 lb) 04/20/22 1500 (!) 87/51 -- -- -- -- -- 04/20/22 1433 (!) 77/42 98 F (36.7 C) 71 (!) 20 95 % (!) 136.1 kg (300 lb 0.7 oz) Physical Exam Vitals and nursing note reviewed. Constitutional: Appearance: He is well-developed. He is obese. He is ill-appearing. HENT: Head: Normocephalic and atraumatic. Nose: Nose normal. Eyes: General: No scleral icterus. Conjunctiva/sclera: Conjunctivae normal. Cardiovascular: Rate and Rhythm: Normal rate and regular rhythm. Heart sounds: Normal heart sounds. No murmur heard. Comments: Diminished DP pulses Pulmonary: Effort: Pulmonary effort is normal. No respiratory distress. Breath sounds: Normal breath sounds and air entry. Chest: Chest wall: No mass, lacerations, swelling or tenderness. Abdominal: General: Abdomen is flat. Bowel sounds are normal. There is no distension. Palpations: Abdomen is soft. Tenderness: There is no abdominal tenderness. Musculoskeletal: Cervical back: Normal. Thoracic back: Normal. Lumbar back: Normal. Right lower leg: No swelling. 3+ Edema present. Left lower leg: No swelling. 3+ Edema present. Comments: Reports bilateral knee pain. Patient has generalized swelling to the lower extremities without evidence for trauma to both knees. No open wounds, ecchymosis noted. Skin: General: Skin is warm and dry. Findings: Erythema present. No rash. Neurological: Mental Status: He is alert and oriented to person, place, and time. Psychiatric: Behavior: Behavior normal. Behavior is cooperative. Laboratory & Radiological Imaging (if done): Labs Reviewed HEPATIC FUNCTION PANEL - Abnormal; Notable for the following components: Result Value Total Protein 8.1 (*) Albumin 2.8 (*) All other components within normal limits CHEM 7 - Abnormal; Notable for the following components: Sodium 134 (*) Glucose 111 (*) BUN 71 (*) Creatinine 2.30 (*) eGFR 33 (*) BUN/Creatinine Ratio 30.9 (*) All other components within normal limits Narrative: [facility] has implemented the eGFR calculation approach that does not have a coefficient for race that conforms to the NKF-ASN Task Force Recommendations. POC VENOUS BLOOD GAS PANEL-PULM - RALS - Abnormal; Notable for the following components: pO2, Kojo 63 (*) Hemoglobin, Blood Gas 10.1 (*) Hematocrit, Calculated 30.8 (*) O2 Sat, Kojo 91.1 (*) All other components within normal limits POC VENOUS BLOOD GAS PANEL-PULM - RALS - Abnormal; Notable for the following components: pO2, Kojo 65 (*) Hemoglobin, Blood Gas 9.8 (*) Hematocrit, Calculated 30.0 (*) O2 Sat, Kojo 91.9 (*) All other components within normal limits CBC WITH AUTO DIFFERENTIAL - Abnormal; Notable for the following components: WBC 3.28 (*) Hemoglobin 10.0 (*) Hematocrit 31.6 (*) MCV 68.7 (*) MCH 21.7 (*) Platelets 102 (*) RDW - CV 16.3 (*) All other components within normal limits MANUAL DIFFERENTIAL - Abnormal; Notable for the following components: Lymphocytes Abs 0.60 (*) Monocytes Abs 0.26 (*) All other components within normal limits LACTIC ACID, PLASMA - Normal NT PRO BNP - Normal Narrative: Pride Study Cut-offs Rule In: < /= 50 Years >450 pg/mL 51 Years - 75 Years >900 pg/mL 76 Years - 99 Years >1800 pg/mL Rule Out: All patients <300 pg/mL ALCOHOL, MEDICAL - Normal URINALYSIS - Normal Narrative: Microscopic examination is performed on all urinalysis samples and only positive findings are reported. The test for blood on the chemical analytic portion of urinalysis may also be positive due to hemoglobinuria and myoglobinuria and if red blood cells are present they are quantified by microscopic examination. BLOOD CULTURE AEROBIC/ANAEROBIC BLOOD CULTURE AEROBIC/ANAEROBIC CBC AND DIFFERENTIAL Narrative: The following orders were created for panel order CBC w/ Diff. Procedure Abnormality Status --------- ------ CBC Auto Differential[[id number]] Abnormal Final result Manual Differential[[id number]] Abnormal Final result CBC and Diff Morphology[[id number]] Final result Please view results for these tests on the individual orders. TROPONIN OBTAIN VENOUS BLOOD GASES AND PERFORM TROPONIN DRUGS OF ABUSE SCREEN, URINE MORPHOLOGY XR Pelvis 1 View (Standard) Preliminary Result No acute osseous abnormality of the pelvis is identified. [employer] Workstation ID: [id number] XR Knee Right 2 Views (Standard) Preliminary Result 1. Bilateral subcutaneous edema. 2. No acute fracture or dislocation identified in either knee. 3. Total right knee arthroplasty in place. [employer] Workstation ID: [id number] XR Knee Left 2 Views (Standard) Preliminary Result 1. Bilateral subcutaneous edema. 2. No acute fracture or dislocation identified in either knee. 3. Total right knee arthroplasty in place. [employer] Workstation ID: [id number] XR Chest 1 View Preliminary Result No acute cardiopulmonary process. [employer] Workstation ID: [id number] MDM: ED Course as of 04/20/22 1729 Tue Apr 20, 2022 1525 pH, Venous: 7.35 [RH] 1525 pCO2, Kojo: 49.4 [RH] 1525 pO2, Kojo(!): 63 [RH] 1525 Hemoglobin, Blood Gas(!): 10.1 [RH] 1525 Hematocrit, Calculated(!): 30.8 [RH] 1530 Alcohol (Medical): <10.00 [RH] 1541 Sodium(!): 134 [RH] 1541 Potassium: 5.0 [RH] 1541 BUN(!): 71 [RH] 1541 Creatinine(!): 2.30 [RH] 1541 eGFR(!): 33 [RH] 1634 XR Chest 1 View IMPRESSION: No acute cardiopulmonary process. [RH] 1644 XR Pelvis 1 View (Standard) IMPRESSION: No acute osseous abnormality of the pelvis is identified. [RH] 1644 XR Knee Right 2 Views (Standard) IMPRESSION: 1. Bilateral subcutaneous edema. 2. No acute fracture or dislocation identified in either knee. 3. Total right knee arthroplasty in place. [RH] 1659 Patient will be admitted to the hospitalist for acute kidney injury, hypotension, cellulitis to lower extremities, generalized weakness. Patient improved with IV fluids to 96/54. Remains afebrile. White count 3.2 and lactate 1.2. Patient received 30 mL/kg IV fluid bolus as well as broad-spectrum antibiotics. [RH] ED Course User Index [RH] Uyen Casiano CNP Clinical Impression: 1. Cellulitis of lower extremity, unspecified laterality 2. MARLNEE (acute kidney injury) (HCC) 3. Hypotension, unspecified hypotension type 4. Dehydration 5. Peripheral edema 6. Fall Disposition: Patient is being admitted. Uyen Casiano CNP ED Advanced Practice Provider [facility] Emergency Department (Please note that portions of this note have been completed with a voice recognition software. Efforts were made to correct any errors, but occasionally words are mis-transcribed.) Uyen Casiano CNP 04/20/22 1729 [facility] Work Phone: 04-20-2022 Emergency department Note Images from the original note were not included. [facility] ED WHIT Note: NAME: Carmen Gilman 56 y.o. CSN: [id number] PCP: Ani Worley CNP History: Chief Complaint: Fall HPI: The history was obtained from the patient. Carmen is a 56 y.o. adult who presents with a chief complaint of Fall. Patient has a history of asthma, COPD, diabetes, hypertension, opioid dependence. Presents to the emergency department today after fall last night. States that he tripped and fell onto his knees and onto an air mattress. He was unable to get himself up because of the pain and weakness. Denies hitting his head or losing consciousness. No neck or back pain. He reports bilateral leg pain, swelling. Patient has a blood pressure 77/40 on arrival. Patient appears generally weak and ill. Notes that he has had chronic swelling to bilateral lower extremities and reports the pain has not increased recently. He has been on antibiotics for his leg swelling and redness but not on current antibiotics. He is unsure of fever. No chest pain, shortness of breath or dizziness. No nausea, vomiting or diarrhea. PMHx: Past Medical History: Diagnosis Date Anxiety Arrhythmia Arthritis Asthma COPD (chronic obstructive pulmonary disease) ([facility]) Diabetes (HCC) Hypertension Opioid dependence ([facility]) PMSx: Past Surgical History: Procedure Laterality Date APPENDECTOMY ARTHROPLASTY KNEE TOTAL ROBOTIC ASSISTED Right 01/08/2020 Procedure: Right Total Knee Replacement Robotic; Surgeon: Sofía Dukes MD; Location: Main OR; Service: Ortho-Robotics FOOT SURGERY Left MANDIBLE FRACTURE SURGERY ORTHOPEDIC SURGERY Right knee THORACIC DUCT LIGATION 01/15/2017 THORACIC DUCT LIGATION FAM. Hx: Family History Problem Relation Age of Onset Heart disease Mother Diabetes Mother SOC. Hx: Social History Socioeconomic History Marital status: Single Tobacco Use Smoking status: Former Smokeless tobacco: Current Types: Chew Vaping Use Vaping Use: Never used Substance and Sexual Activity Alcohol use: Not Currently Drug use: Never Types: Marijuana Sexual activity: Not Currently Social History Narrative Merged History Encounter Merged History Encounter MEDs: Previous Medications Medication Sig albuterol (PROVENTIL) 2.5 mg /3 mL (0.083 %) nebulizer solution Take 3 mL (2.5 mg total) by nebulization every 6 (six) hours as needed for wheezing . albuterol (PROVENTIL) 2.5 mg /3 mL (0.083 %) nebulizer solution USE ONE AMPULE (3ML) BY NEBULIZER EVERY 6 HOURS NEEDED albuterol (PROVENTIL) 2.5 mg /3 mL (0.083 %) nebulizer solution Take 3 mL (2.5 mg total) by nebulization every 6 (six) hours as needed for wheezing . albuterol 90 mcg/actuation inhaler Inhale 2 puffs every 6 (six) hours as needed for wheezing. albuterol 90 mcg/actuation inhaler Inhale 2 (two) puffs every 6 (six) hours as needed for wheezing . aspirin 81 MG EC tablet Take 81 mg by mouth daily . azithromycin (ZITHROMAX) 250 MG tablet 2 tabs day 1 and 1 daily TG . Bevespi Aerosphere 9-4.8 mcg HFAA Inhale 2 puffs 2 (two) times a day . buprenorphine HCL (SUBUTEX) [address] 8 mg under the tongue 2 (two) times a day . buprenorphine HCL (SUBUTEX) [address] 8 mg under the tongue . clonazePAM (KLONOPIN) 0.5 MG tablet Take 0.5 mg by mouth 2 (two) times a day . clonazePAM (KLONOPIN) 1 MG tablet Take 1 mg by mouth 4 (four) times a day . Combivent Respimat 20-100 mcg/actuation Mist Inhale 1-2 sprays every 4 to 6 hours as needed . diltiazem (TIAZAC) 240 MG 24 hr capsule Take 240 mg by mouth daily . gabapentin (NEURONTIN) 800 MG tablet Take 800 mg by mouth 3 (three) times a day. gabapentin (NEURONTIN) 800 MG tablet Take 800 mg by mouth 4 (four) times a day . lisinopriL (PRINIVIL,ZESTRIL) 40 MG tablet Take 40 mg by mouth daily . pantoprazole (PROTONIX) 20 MG tablet Take 1 (one) tablet (20 mg total) by mouth daily Start: 01/09/20. predniSONE (DELTASONE) 10 MG tablet Proventil HFA 90 mcg/actuation inhaler Inhale 2 (two) puffs every 6 (six) hours as needed for wheezing . Symbicort 160-4.5 mcg/actuation inhaler Inhale 2 puffs 2 (two) times a day . ALL: No Known Allergies ROS: Positives and pertinent negatives as per HPI. All other systems were reviewed and are negative. Physical Exam: Patient Vitals for the past 24 hrs: BP Temp Pulse Resp SpO2 Weight 04/20/22 1723 (!) 96/54 -- -- -- -- -- 04/20/22 1715 (!) 96/54 -- (!) 107 (!) 19 94 % -- 04/20/22 1502 -- -- -- -- -- 122.5 kg (270 lb) 04/20/22 1500 (!) 87/51 -- -- -- -- -- 04/20/22 1433 (!) 77/42 98 F (36.7 C) 71 (!) 20 95 % (!) 136.1 kg (300 lb 0.7 oz) Physical Exam Vitals and nursing note reviewed. Constitutional: Appearance: He is well-developed. He is obese. He is ill-appearing. HENT: Head: Normocephalic and atraumatic. Nose: Nose normal. Eyes: General: No scleral icterus. Conjunctiva/sclera: Conjunctivae normal. Cardiovascular: Rate and Rhythm: Normal rate and regular rhythm. Heart sounds: Normal heart sounds. No murmur heard. Comments: Diminished DP pulses Pulmonary: Effort: Pulmonary effort is normal. No respiratory distress. Breath sounds: Normal breath sounds and air entry. Chest: Chest wall: No mass, lacerations, swelling or tenderness. Abdominal: General: Abdomen is flat. Bowel sounds are normal. There is no distension. Palpations: Abdomen is soft. Tenderness: There is no abdominal tenderness. Musculoskeletal: Cervical back: Normal. Thoracic back: Normal. Lumbar back: Normal. Right lower leg: No swelling. 3+ Edema present. Left lower leg: No swelling. 3+ Edema present. Comments: Reports bilateral knee pain. Patient has generalized swelling to the lower extremities without evidence for trauma to both knees. No open wounds, ecchymosis noted. Skin: General: Skin is warm and dry. Findings: Erythema present. No rash. Neurological: Mental Status: He is alert and oriented to person, place, and time. Psychiatric: Behavior: Behavior normal. Behavior is cooperative. Laboratory & Radiological Imaging (if done): Labs Reviewed HEPATIC FUNCTION PANEL - Abnormal; Notable for the following components: Result Value Total Protein 8.1 (*) Albumin 2.8 (*) All other components within normal limits CHEM 7 - Abnormal; Notable for the following components: Sodium 134 (*) Glucose 111 (*) BUN 71 (*) Creatinine 2.30 (*) eGFR 33 (*) BUN/Creatinine Ratio 30.9 (*) All other components within normal limits Narrative: [facility] has implemented the eGFR calculation approach that does not have a coefficient for race that conforms to the NKF-ASN Task Force Recommendations. POC VENOUS BLOOD GAS PANEL-PULM - RALS - Abnormal; Notable for the following components: pO2, Kojo 63 (*) Hemoglobin, Blood Gas 10.1 (*) Hematocrit, Calculated 30.8 (*) O2 Sat, Kojo 91.1 (*) All other components within normal limits POC VENOUS BLOOD GAS PANEL-PULM - RALS - Abnormal; Notable for the following components: pO2, Kojo 65 (*) Hemoglobin, Blood Gas 9.8 (*) Hematocrit, Calculated 30.0 (*) O2 Sat, Kojo 91.9 (*) All other components within normal limits CBC WITH AUTO DIFFERENTIAL - Abnormal; Notable for the following components: WBC 3.28 (*) Hemoglobin 10.0 (*) Hematocrit 31.6 (*) MCV 68.7 (*) MCH 21.7 (*) Platelets 102 (*) RDW - CV 16.3 (*) All other components within normal limits MANUAL DIFFERENTIAL - Abnormal; Notable for the following components: Lymphocytes Abs 0.60 (*) Monocytes Abs 0.26 (*) All other components within normal limits LACTIC ACID, PLASMA - Normal NT PRO BNP - Normal Narrative: Pride Study Cut-offs Rule In: < /= 50 Years >450 pg/mL 51 Years - 75 Years >900 pg/mL 76 Years - 99 Years >1800 pg/mL Rule Out: All patients <300 pg/mL ALCOHOL, MEDICAL - Normal URINALYSIS - Normal Narrative: Microscopic examination is performed on all urinalysis samples and only positive findings are reported. The test for blood on the chemical analytic portion of urinalysis may also be positive due to hemoglobinuria and myoglobinuria and if red blood cells are present they are quantified by microscopic examination. BLOOD CULTURE AEROBIC/ANAEROBIC BLOOD CULTURE AEROBIC/ANAEROBIC CBC AND DIFFERENTIAL Narrative: The following orders were created for panel order CBC w/ Diff. Procedure Abnormality Status --------- ------ CBC Auto Differential[[id number]] Abnormal Final result Manual Differential[[id number]] Abnormal Final result CBC and Diff Morphology[[id number]] Final result Please view results for these tests on the individual orders. TROPONIN OBTAIN VENOUS BLOOD GASES AND PERFORM TROPONIN DRUGS OF ABUSE SCREEN, URINE MORPHOLOGY XR Pelvis 1 View (Standard) Preliminary Result No acute osseous abnormality of the pelvis is identified. [employer] Workstation ID: [id number] XR Knee Right 2 Views (Standard) Preliminary Result 1. Bilateral subcutaneous edema. 2. No acute fracture or dislocation identified in either knee. 3. Total right knee arthroplasty in place. [employer] Workstation ID: [id number] XR Knee Left 2 Views (Standard) Preliminary Result 1. Bilateral subcutaneous edema. 2. No acute fracture or dislocation identified in either knee. 3. Total right knee arthroplasty in place. [employer] Workstation ID: [id number] XR Chest 1 View Preliminary Result No acute cardiopulmonary process. [employer] Workstation ID: [id number] MDM: ED Course as of 04/20/22 1729 e Apr 20, 2022 1525 pH, Venous: 7.35 [RH] 1525 pCO2, Kojo: 49.4 [RH] 1525 pO2, Kojo(!): 63 [RH] 1525 Hemoglobin, Blood Gas(!): 10.1 [RH] 1525 Hematocrit, Calculated(!): 30.8 [RH] 1530 Alcohol (Medical): <10.00 [RH] 1541 Sodium(!): 134 [RH] 1541 Potassium: 5.0 [RH] 1541 BUN(!): 71 [RH] 1541 Creatinine(!): 2.30 [RH] 1541 eGFR(!): 33 [RH] 1634 XR Chest 1 View IMPRESSION: No acute cardiopulmonary process. [RH] 1644 XR Pelvis 1 View (Standard) IMPRESSION: No acute osseous abnormality of the pelvis is identified. [RH] 1644 XR Knee Right 2 Views (Standard) IMPRESSION: 1. Bilateral subcutaneous edema. 2. No acute fracture or dislocation identified in either knee. 3. Total right knee arthroplasty in place. [RH] 1659 Patient will be admitted to the hospitalist for acute kidney injury, hypotension, cellulitis to lower extremities, generalized weakness. Patient improved with IV fluids to 96/54. Remains afebrile. White count 3.2 and lactate 1.2. Patient received 30 mL/kg IV fluid bolus as well as broad-spectrum antibiotics. [RH] ED Course User Index [RH] Uyen Casiano CNP Clinical Impression: 1. Cellulitis of lower extremity, unspecified laterality 2. MARLENE (acute kidney injury) (HCC) 3. Hypotension, unspecified hypotension type 4. Dehydration 5. Peripheral edema 6. Fall Disposition: Patient is being admitted. Uyen Casiano CNP ED Advanced Practice Provider [facility] Emergency Department (Please note that portions of this note have been completed with a voice recognition software. Efforts were made to correct any errors, but occasionally words are mis-transcribed.) Uyen Casiano CNP 04/20/22 1729 RODRIGUE Qiu bedside. Placed call to Dr. Solis to update about pt hypotension. Pt arrived to ed with c/c of fall from standing last night. Pt has swollen legs that he states is chronic. Pt has wounds to bilateral legs that are scabbed over. documented in this encounter [facility] 04-20-2022 Note Associated Order(s): EKG 12-lead EKG 12-lead Date/Time: 04/20/2022 3:15 PM Performed by: Carolina Solis MD Authorized by: Carolina Solis MD Interpreted by ED attending physician Comparison: not compared with previous ECG Rhythm: sinus rhythm BPM: 69 Conduction: conduction normal ST Segments: ST segments normal T Inversion: V2 normal SC interval normal QRS interval normal QT interval Clinical impression: non-specific ECG [facility] 04-20-2022 Emergency department Note RODRIGUE Qiu bedside. [facility] 04-20-2022 Emergency department Note Placed call to Dr. Solis to update about pt hypotension. [facility] 04-20-2022 Emergency department Triage note Pt arrived to ed with c/c of fall from standing last night. Pt has swollen legs that he states is chronic. Pt has wounds to bilateral legs that are scabbed over. [facility] 03-07-2022 Physician Emergency department Note Emergency Department Report [facility] EMERGENCY DEPARTMENT Service Date:.03/07/22 PCP: Ani Worley Chief Complaint: Chief Complaint Patient presents with Wound Infection Open wound to the rt. Posterior lower leg x 2-3 months, pt c/o the "leaking" from the wound site, and need ATB for the MRSA HPI Carmen Gilman is a 56 y.o. male presents to the ED today due to wound/infection right lower leg. Patient states had problems with the right lower extremity last 2-3 weeks. He is no longer seeing wound care infectious disease. He states he was given a prescription recently for Keflex. He'll ulceration on the back of his right calf that he noticed 2 days ago. Denies any fever chills nausea vomiting. Review of Systems: Review of Systems Respiratory: Negative for shortness of breath. Past Medical History: Past Medical History: Diagnosis Date Asthma Essential hypertension, benign MRSA (methicillin resistant staph aureus) culture positive rt. lower posteria leg Past Surgical History: Past Surgical History: Procedure Laterality Date APPENDECTOMY BACK SURGERY FOOT SURGERY Allergies: No Known Allergies Medications: Discharge Medication List as of 03/07/2022 1:55 AM START taking these medications Details clindamycin 300 MG capsule Take 1 capsule by mouth 3 times daily for 10 days. Normal Disp-30 capsule, R-0 CONTINUE these medications which have NOT CHANGED Details albuterol (2.5 MG/3ML) 0.083% inhalation solution Take 3 mL by nebulization every 6 hours as needed. Normal Disp-1 Package, R-3 albuterol 108 (90 Base) MCG/ACT Aero Soln inhaler Inhale 1 puff every 6 hours as needed for Wheezing. Normal Disp-1 Inhaler, R-[address]ir[address] tablet Take 1 tablet by mouth daily. Normal Disp-30 tablet, R-11 buprenorphine 8 MG sublingual tablet Place 8 mg under tongue. Historical Med clonazePAM 0.5 MG tablet Take 0.5 mg by mouth 2 times daily. Historical Med Combivent Respimat 20-100 MCG/ACT Aero Soln inhaler Historical Med TROY furOSEmide 40 MG tablet Take 1 tablet by mouth daily. Normal Disp-30 tablet, R-0 gabapentin 800 MG tablet Take 1 tablet by mouth 3 times daily. Normal Disp-90 tablet, R-0 Glycopyrrolate-Formoterol (Bevespi Aerosphere) 9-4.8 MCG/ACT Aerosol Inhale 2 puffs 2 times daily. Normal Disp-1 Inhaler, R-11 lisinopril 20 MG tablet Take 1 tablet by mouth daily. Normal Disp-30 tablet, R-2 predniSONE 10 MG tablet TAKE 6 TABS BY MOUTH X 1 DAY & DECREASE BY ONE DAILY UNTIL GONE 6,5,4,3,2,1 Historical Med spironolactone 25 MG tablet Take 1 tablet by mouth daily. Normal Disp-30 tablet, R-0 Family History: Family History Problem Relation Age of Onset Heart Disease - Other Mother Diabetes Mother Heart Disease - Other Father Social History: Social History Socioeconomic History Marital status: Spouse name: Not on file Number of children: Not on file Years of education: Not on file Highest education level: Not on file Occupational History Employer: UNEMPLOYED Tobacco Use Smoking status: Former Smoker Types: Cigarettes Quit date: 2007 Years since quittin.5 Smokeless tobacco: Current User Types: Chew Substance and Sexual Activity Alcohol use: Not Currently Drug use: Not Currently Comment: Former Sexual activity: Not on file Other Topics Concern Not on file Social History Narrative Not on file Social Determinants of Health Financial Resource Strain: Not on file Food Insecurity: Not on file Transportation Needs: Not on file Physical Activity: Not on file Stress: Not on file Social Connections: Not on file Intimate Partner Violence: Not on file Housing Stability: Not on file Physical Exam: Physical Exam Vitals and nursing note reviewed. Constitutional: Appearance: Normal appearance. He is obese. HENT: Head: Normocephalic and atraumatic. Mouth/Throat: Mouth: Mucous membranes are moist. Pharynx: Oropharynx is clear. Cardiovascular: Rate and Rhythm: Normal rate and regular rhythm. Pulses: Normal pulses. Heart sounds: Normal heart sounds. Pulmonary: Effort: Pulmonary effort is normal. Breath sounds: Normal breath sounds. Musculoskeletal: Comments: Bilateral lower extremity lymphedema right posterior calf she has a 4 cm ulceration. He has warmth and redness to the mid tibia on the right. Neurological: Mental Status: He is alert and oriented to person, place, and time. Psychiatric: Mood and Affect: Mood normal. Vital Signs During ED Visit Patient Vitals for the past 24 hrs: BP Temp Temp src Pulse Resp SpO2 Height Weight 03/07/22 0219 109/62 -- -- 86 20 97 % -- -- 03/07/22 0005 -- -- -- -- -- 94 % -- -- 03/07/22 0002 -- -- -- -- -- -- 1.829 m (6') 113.4 kg (250 lb) 03/07/22 0000 122/58 99.4 F (37.4 C) Oral 105 20 (!) 88 % -- -- Orders/Results: Orders Placed This Encounter XR TIBIA AND FIBULA RIGHT ALCOHOL (ETHANOL),BLOOD CBC, EDIF, PLATELET COMPREHENSIVE METABOLIC PANEL PTT PROTIME-INR LACTATE, BLOOD SEDIMENTATION RATE, AUTOMATED C REACTIVE PROTEIN AMB REFERRAL TO WOUND CLINIC clindamycin (CLEOCIN) 900 mg in normal saline 50 ml premix IVPB clindamycin 300 MG capsule hydroCODone-acetaminophen (NORCO) 5-325 MG per tablet 1 Each Results for orders placed or performed during the hospital encounter of 03/06/22 ALCOHOL (ETHANOL),BLOOD Result Value Ref Range ALCOHOL, ETHYL, SERUM <5 0 - 10 MG/DL CBC, EDIF, PLATELET Result Value Ref Range WBC (WHITE BLOOD COUNT) 3.8 3.6 - 11.0 10*3/uL RBC 5.03 4.0 - 6.1 10*6/uL HEMOGLOBIN (HGB) 11.0 (L) 14.0 - 18.0 G/DL HEMATOCRIT (HCT) 35.0 (L) 42.0 - 52.0 % MEAN CELL VOLUME 69.6 (L) 80.0 - 100.0 FL Mean Cell HGB 21.8 (L) 26.0 - 35.0 PG MEAN CELL HGB CONCENTRATION 31.3 27.0 - 37.0 G/DL RBC DISTRIBUTION 15.9 (H) 11.5 - 14.5 % PLATELET COUNT 122 (L) 130.0 - 400.0 10*3/uL MEAN PLATELET VOLUME 8.2 7.4 - 11.0 FL DIFFERENTIAL TYPE AUTO DIFF % NEUTROPHILS 64.5 37.0 - 75.0 % LYMPHOCYTE 20.4 20.0 - 55.0 % MONOCYTE % 13.0 (H) 0.0 - 10.0 % EOSINOPHIL % 1.3 0.0 - 11.0 % BASOPHIL % 0.8 0.0 - 2.0 % Absolute Neutrophil Count 2.4 1.4 - 6.5 10*3/uL LYMPHOCYTES, ABSOLUTE 0.80 (L) 1.2 - 3.4 10*3/uL MONOCYTES, ABSOLUTE 0.5 0.0 - 0.7 10*3/uL ABSOLUTE EOSINOPHIL COUNT 0.00 0.0 - 0.7 10*3/uL ABSOLUTE BASOPHIL COUNT 0.0 0.0 - 0.2 10*3/uL COMPREHENSIVE METABOLIC PANEL Result Value Ref Range GLUCOSE 148 (H) 70 - 100 MG/DL BUN 12 7 - 20 MG/DL CREATININE SERUM 0.82 0.66 - 1.25 MG/DL SODIUM 132 (L) 136 - 145 MMOL/L POTASSIUM 3.4 (L) 3.5 - 5.1 MMOL/L CHLORIDE 87 (L) 98 - 107 MMOL/L CALCIUM 8.2 (L) 8.4 - 10.2 MG/DL PROTEIN, TOTAL 7.6 6.3 - 8.2 GM/DL ALBUMIN 3.0 (L) 3.5 - 5.0 G/dl BILIRUBIN, TOTAL 1.4 (H) 0.2 - 1.2 MG/DL AST 34 15 - 41 IU/L ALKALINE PHOSPHATASE 45 38 - 126 IU/L CARBON DIOXIDE (CO2) 38 (H) 22 - 30 MMOL/L A/G Ratio 0.7 (L) 1.3 - 2.2 RATIO ALT 20 17 - 63 IU/L ESTIMATED GFR, NON AMER 104 ml/min/1.73sq.m ESTIMATED GFR, 125 ml/min/1.73sq.m GFR COMMENT Average GFR for 50-59 years old = 93. PTT Result Value Ref Range PTT 32.5 22.4 - 34.7 SEC PROTIME-INR Result Value Ref Range PT 15.5 (H) 11.8 - 14.4 SEC INR 1.22 (H) 0.85 - 1.10 LACTATE, BLOOD Result Value Ref Range LACTATE 1.5 0.7 - 2.0 mmol/L SEDIMENTATION RATE, AUTOMATED Result Value Ref Range SEDIMENTATION RATE AUTOMATED 118 (H) 0 - 20 MM/HR C REACTIVE PROTEIN Result Value Ref Range C-REACTIVE PROTEIN 39.4 (H) 0 - 10.0 MG/L Radiographic Imaging XR TIBIA AND FIBULA RIGHT Final Result IMPRESSION: 1. Generalized lower extremity edema likely cellulitis with posterior lower calf ulceration measuring 3.1 cm. No subcutaneous emphysema or suspicious osseous abnormality. 2. Severe pes planus and degenerative change similar to the prior study of the forefoot. 3. Total knee arthroplasty. Bone scan is a more sensitive modality for the evaluation of acute osteomyelitis. Procedures: Procedures Moderate Sedation Procedure: No ED Summary/MDM Patient needs to follow with his PCP as an outpatient. He'll be prescribed clindamycin I also made a referral to wound care. Patient be discharged home return the ER as needed. MDM Number of Diagnoses or Management Options Amount and/or Complexity of Data Reviewed Clinical lab tests: reviewed and ordered Tests in the radiology section of CPT : reviewed and ordered Review and summarize past medical records: yes Independent visualization of images, tracings, or specimens: yes Clinical Impression: 1. Cellulitis of right lower extremity 2. Venous stasis ulcer of right calf, unspecified ulcer stage, unspecified whether varicose veins present No follow-ups on file. Discharge Medication List as of 03/07/2022 1:55 AM START taking these medications Details clindamycin 300 MG capsule Take 1 capsule by mouth 3 times daily for 10 days. Normal Disp-30 capsule, R-0 Discharge Medication List as of 03/07/2022 1:55 AM An After Visit Summary was printed and given to the patient with above information. . . Nuno Cantor MD 03/07/22 0338 [facility] 03-07-2022 Emergency department Note Emergency Department Report [facility] EMERGENCY DEPARTMENT Service Date:.03/07/22 PCP: Ani Worley Chief Complaint: Chief Complaint Patient presents with Wound Infection Open wound to the rt. Posterior lower leg x 2-3 months, pt c/o the "leaking" from the wound site, and need ATB for the MRSA HPI Carmen Gilman is a 56 y.o. male presents to the ED today due to wound/infection right lower leg. Patient states had problems with the right lower extremity last 2-3 weeks. He is no longer seeing wound care infectious disease. He states he was given a prescription recently for Keflex. He'll ulceration on the back of his right calf that he noticed 2 days ago. Denies any fever chills nausea vomiting. Review of Systems: Review of Systems Respiratory: Negative for shortness of breath. Past Medical History: Past Medical History: Diagnosis Date Asthma Essential hypertension, benign MRSA (methicillin resistant staph aureus) culture positive rt. lower posteria leg Past Surgical History: Past Surgical History: Procedure Laterality Date APPENDECTOMY BACK SURGERY FOOT SURGERY Allergies: No Known Allergies Medications: Discharge Medication List as of 03/07/2022 1:55 AM START taking these medications Details clindamycin 300 MG capsule Take 1 capsule by mouth 3 times daily for 10 days. Normal Disp-30 capsule, R-0 CONTINUE these medications which have NOT CHANGED Details albuterol (2.5 MG/3ML) 0.083% inhalation solution Take 3 mL by nebulization every 6 hours as needed. Normal Disp-1 Package, R-3 albuterol 108 (90 Base) MCG/ACT Aero Soln inhaler Inhale 1 puff every 6 hours as needed for Wheezing. Normal Disp-1 Inhaler, R-2 [address] tablet Take 1 tablet by mouth daily. Normal Disp-30 tablet, R-11 buprenorphine [address] 8 mg under tongue. Historical Med clonazePAM 0.5 MG tablet Take 0.5 mg by mouth 2 times daily. Historical Med Combivent Respimat 20-100 MCG/ACT Aero Soln inhaler Historical Med TROY furOSEmide 40 MG tablet Take 1 tablet by mouth daily. Normal Disp-30 tablet, R-0 gabapentin 800 MG tablet Take 1 tablet by mouth 3 times daily. Normal Disp-90 tablet, R-0 Glycopyrrolate-Formoterol (Bevespi Aerosphere) 9-4.8 MCG/ACT Aerosol Inhale 2 puffs 2 times daily. Normal Disp-1 Inhaler, R-11 lisinopril 20 MG tablet Take 1 tablet by mouth daily. Normal Disp-30 tablet, R-2 predniSONE 10 MG tablet TAKE 6 TABS BY MOUTH X 1 DAY & DECREASE BY ONE DAILY UNTIL GONE 6,5,4,3,2,1 Historical Med spironolactone 25 MG tablet Take 1 tablet by mouth daily. Normal Disp-30 tablet, R-0 Family History: Family History Problem Relation Age of Onset Heart Disease - Other Mother Diabetes Mother Heart Disease - Other Father Social History: Social History Socioeconomic History Marital status: Spouse name: Not on file Number of children: Not on file Years of education: Not on file Highest education level: Not on file Occupational History Employer: UNEMPLOYED Tobacco Use Smoking status: Former Smoker Types: Cigarettes Quit date: 2007 Years since quittin.5 Smokeless tobacco: Current User Types: Chew Substance and Sexual Activity Alcohol use: Not Currently Drug use: Not Currently Comment: Former Sexual activity: Not on file Other Topics Concern Not on file Social History Narrative Not on file Social Determinants of Health Financial Resource Strain: Not on file Food Insecurity: Not on file Transportation Needs: Not on file Physical Activity: Not on file Stress: Not on file Social Connections: Not on file Intimate Partner Violence: Not on file Housing Stability: Not on file Physical Exam: Physical Exam Vitals and nursing note reviewed. Constitutional: Appearance: Normal appearance. He is obese. HENT: Head: Normocephalic and atraumatic. Mouth/Throat: Mouth: Mucous membranes are moist. Pharynx: Oropharynx is clear. Cardiovascular: Rate and Rhythm: Normal rate and regular rhythm. Pulses: Normal pulses. Heart sounds: Normal heart sounds. Pulmonary: Effort: Pulmonary effort is normal. Breath sounds: Normal breath sounds. Musculoskeletal: Comments: Bilateral lower extremity lymphedema right posterior calf she has a 4 cm ulceration. He has warmth and redness to the mid tibia on the right. Neurological: Mental Status: He is alert and oriented to person, place, and time. Psychiatric: Mood and Affect: Mood normal. Vital Signs During ED Visit Patient Vitals for the past 24 hrs: BP Temp Temp src Pulse Resp SpO2 Height Weight 03/07/22 0219 109/62 -- -- 86 20 97 % -- -- 03/07/22 0005 -- -- -- -- -- 94 % -- -- 03/07/22 0002 -- -- -- -- -- -- 1.829 m (6') 113.4 kg (250 lb) 03/07/22 0000 122/58 99.4 F (37.4 C) Oral 105 20 (!) 88 % -- -- Orders/Results: Orders Placed This Encounter XR TIBIA AND FIBULA RIGHT ALCOHOL (ETHANOL),BLOOD CBC, EDIF, PLATELET COMPREHENSIVE METABOLIC PANEL PTT PROTIME-INR LACTATE, BLOOD SEDIMENTATION RATE, AUTOMATED C REACTIVE PROTEIN AMB REFERRAL TO WOUND CLINIC clindamycin (CLEOCIN) 900 mg in normal saline 50 ml premix IVPB clindamycin 300 MG capsule hydroCODone-acetaminophen (NORCO) 5-325 MG per tablet 1 Each Results for orders placed or performed during the hospital encounter of 03/06/22 ALCOHOL (ETHANOL),BLOOD Result Value Ref Range ALCOHOL, ETHYL, SERUM <5 0 - 10 MG/DL CBC, EDIF, PLATELET Result Value Ref Range WBC (WHITE BLOOD COUNT) 3.8 3.6 - 11.0 10*3/uL RBC 5.03 4.0 - 6.1 10*6/uL HEMOGLOBIN (HGB) 11.0 (L) 14.0 - 18.0 G/DL HEMATOCRIT (HCT) 35.0 (L) 42.0 - 52.0 % MEAN CELL VOLUME 69.6 (L) 80.0 - 100.0 FL Mean Cell HGB 21.8 (L) 26.0 - 35.0 PG MEAN CELL HGB CONCENTRATION 31.3 27.0 - 37.0 G/DL RBC DISTRIBUTION 15.9 (H) 11.5 - 14.5 % PLATELET COUNT 122 (L) 130.0 - 400.0 10*3/uL MEAN PLATELET VOLUME 8.2 7.4 - 11.0 FL DIFFERENTIAL TYPE AUTO DIFF % NEUTROPHILS 64.5 37.0 - 75.0 % LYMPHOCYTE 20.4 20.0 - 55.0 % MONOCYTE % 13.0 (H) 0.0 - 10.0 % EOSINOPHIL % 1.3 0.0 - 11.0 % BASOPHIL % 0.8 0.0 - 2.0 % Absolute Neutrophil Count 2.4 1.4 - 6.5 10*3/uL LYMPHOCYTES, ABSOLUTE 0.80 (L) 1.2 - 3.4 10*3/uL MONOCYTES, ABSOLUTE 0.5 0.0 - 0.7 10*3/uL ABSOLUTE EOSINOPHIL COUNT 0.00 0.0 - 0.7 10*3/uL ABSOLUTE BASOPHIL COUNT 0.0 0.0 - 0.2 10*3/uL COMPREHENSIVE METABOLIC PANEL Result Value Ref Range GLUCOSE 148 (H) 70 - 100 MG/DL BUN 12 7 - 20 MG/DL CREATININE SERUM 0.82 0.66 - 1.25 MG/DL SODIUM 132 (L) 136 - 145 MMOL/L POTASSIUM 3.4 (L) 3.5 - 5.1 MMOL/L CHLORIDE 87 (L) 98 - 107 MMOL/L CALCIUM 8.2 (L) 8.4 - 10.2 MG/DL PROTEIN, TOTAL 7.6 6.3 - 8.2 GM/DL ALBUMIN 3.0 (L) 3.5 - 5.0 G/dl BILIRUBIN, TOTAL 1.4 (H) 0.2 - 1.2 MG/DL AST 34 15 - 41 IU/L ALKALINE PHOSPHATASE 45 38 - 126 IU/L CARBON DIOXIDE (CO2) 38 (H) 22 - 30 MMOL/L A/G Ratio 0.7 (L) 1.3 - 2.2 RATIO ALT 20 17 - 63 IU/L ESTIMATED GFR, NON AMER 104 ml/min/1.73sq.m ESTIMATED GFR, 125 ml/min/1.73sq.m GFR COMMENT Average GFR for 50-59 years old = 93. PTT Result Value Ref Range PTT 32.5 22.4 - 34.7 SEC PROTIME-INR Result Value Ref Range PT 15.5 (H) 11.8 - 14.4 SEC INR 1.22 (H) 0.85 - 1.10 LACTATE, BLOOD Result Value Ref Range LACTATE 1.5 0.7 - 2.0 mmol/L SEDIMENTATION RATE, AUTOMATED Result Value Ref Range SEDIMENTATION RATE AUTOMATED 118 (H) 0 - 20 MM/HR C REACTIVE PROTEIN Result Value Ref Range C-REACTIVE PROTEIN 39.4 (H) 0 - 10.0 MG/L Radiographic Imaging XR TIBIA AND FIBULA RIGHT Final Result IMPRESSION: 1. Generalized lower extremity edema likely cellulitis with posterior lower calf ulceration measuring 3.1 cm. No subcutaneous emphysema or suspicious osseous abnormality. 2. Severe pes planus and degenerative change similar to the prior study of the forefoot. 3. Total knee arthroplasty. Bone scan is a more sensitive modality for the evaluation of acute osteomyelitis. Procedures: Procedures Moderate Sedation Procedure: No ED Summary/MDM Patient needs to follow with his PCP as an outpatient. He'll be prescribed clindamycin I also made a referral to wound care. Patient be discharged home return the ER as needed. MDM Number of Diagnoses or Management Options Amount and/or Complexity of Data Reviewed Clinical lab tests: reviewed and ordered Tests in the radiology section of CPT : reviewed and ordered Review and summarize past medical records: yes Independent visualization of images, tracings, or specimens: yes Clinical Impression: 1. Cellulitis of right lower extremity 2. Venous stasis ulcer of right calf, unspecified ulcer stage, unspecified whether varicose veins present No follow-ups on file. Discharge Medication List as of 03/07/2022 1:55 AM START taking these medications Details clindamycin 300 MG capsule Take 1 capsule by mouth 3 times daily for 10 days. Normal Disp-30 capsule, R-0 Discharge Medication List as of 03/07/2022 1:55 AM An After Visit Summary was printed and given to the patient with above information. . . Nuno Cantor MD 03/07/22 0338 documented in this encounter [facility] 11-15-2021 History of Present illness Narrative 11/15/21 1100 Time In/Out Time In 1100 Time Out 1125 Total Visit Time 25 minutes Total Treatment Time 25 minutes General Pain Documentation (Adult, OB, Peds) Presence of Pain denies pain/discomfort Objective Therapeutic Interventions Pt. preparing for discharge but agreeable to participate in therapy. Pt. seated in recliner chair upon arrival . Pt. completed seated/standing B LE PREs 2x10 reps. Pt. completed sit to stand to FWW, CGA. Pt. amb 75', CGA with FWW. Pt. returned to chair and completed chair squats 2x10 reps. Pt. demonstrates significant improvement with endurance and strength today. Left seated in recliner chair with call light within reach Transfer Skill: Sit To Stand, Rehab Eval Boutte (Sit-Stand Transfers) contact guard Physical Assist/Nonphysical Assist: Sit/Stand 1 person assist Weight-Bearing Restrictions: Sit/Stand full weight-bearing Assistive Device For Transfer: Sit/Stand 2 wheeled walker Gait Skills, PT Eval Level of Boutte: Gait contact guard Physical Assist/Nonphysical Assist: Gait 1 person assist Weight-Bearing Restrictions: Gait full weight-bearing Assistive Device For Transfer: Gait 2 wheeled walker Gait Distance 75 feet 11/14/21 1316 Time In/Out Time In 1316 Subjective RN Approved Intervention as tolerated Existing Precautions/Restrictions fall Subjective Reports Pt sitting up in recliner chair requesting to return to bed Cognitive Status Examination Orientation Status (Cognition) oriented x 4 Level of Consciousness alert Able to Follow Commands (Communication) WFL Personal Safety and Judgment impaired General Pain Documentation (Adult, OB, Peds) Presence of Pain complains of pain/discomfort Pain Location back;foot, left;foot, right Pain Management Interventions (pt request pain medication) Select Pain Scale (7/10) Transfer Skill: Sit To Stand, Rehab Eval Boutte (Sit-Stand Transfers) contact guard Physical Assist/Nonphysical Assist: Sit/Stand verbal cues;1 person assist Weight-Bearing Restrictions: Sit/Stand full weight-bearing Assistive Device For Transfer: Sit/Stand 2 wheeled walker Clinical Impression Today's Treatment Included Pt instructed on positioning and sequencing in prep for completing sit to stand from recliner chair, patient able to complete with CGA and trunk flexion to assist. Pt instructed on sequencing and stability in standing to transfer to bed utilizing front wheeled walker completing CGA. Pt complete sit to supine with CGA providing instruction on UB and LB positioning to ease transition. Pt requesting to lay on left side and pain medication, nursing notified. DAILY PROGRESS NOTE Admit Date: 11/12/2021 Date of Evaluation: :28 PM [facility] LOS: 2 days Chief complaint: Hypotension SUBJECTIVE: Patient seen and examined. Chart, medications, labs all reviewed. Patient denies all reports of Headache Blurred Vision, Dizziness, Fever, Chills, Nausea, Vomiting, Diarrhea, Pain in legs. Primarily right foot. Vital Signs: Blood pressure 130/63, pulse 72, temperature 98 F (36.7 C), temperature source Temporal, resp. rate 22, height 1.829 m (6'), weight 122.9 kg (271 lb), SpO2 93 %. O2 Sat (%): 93 % (11/14 1100) O2 Device: room air (11/14 1142) Flow (L/min): 2.5 (11/14 0730) Intake and Output: Intake/Output Summary (Last 24 hours) at 11/14/2021 1228 Last data filed at 11/14/2021 0908 Gross per 24 hour Intake 1818 ml Output 2200 ml Net -382 ml Daily Weight: Wt Readings from Last 3 Encounters: 11/13/21 122.9 kg (271 lb) 10/07/21 136.1 kg (300 lb) 04/14/21 120.2 kg (265 lb) PHYSICAL EXAM: General: Patient resting comfortably. Awake. No acute distress. Cardiovascular: Regular rate and rhythm, without murmurs, rubs, or gallops. Respiratory: Bilateral Upper and Lower Lobes without wheezes, rales, or rhonchi , diminished. Abdomen: Soft, rounded, non-tender. Bowel sounds present x4 quadrants. No rebound. No organomegaly or masses noted upon deep palpation. Extremities: + 4 ble edema, clubbing or cyanosis, pulses palpable 2+ distally. Skin: Warm, Dry, Intact. Vascular discoloration ble. Neuro: Cranial nerves II-XII grossly intact. No focal deficits Diagnostics: CBC Lab Results Component Value Date/Time WBC 2.3 (L) 11/14/2021 04:35 AM WBC 3.0 (L) 11/13/2021 10:08 AM WBC 3.3 (L) 11/13/2021 04:58 AM HGB 9.3 (L) 11/14/2021 04:35 AM HGB 9.9 (L) 11/13/2021 10:08 AM HGB 10.9 (L) 11/13/2021 04:58 AM HCT 29.0 (L) 11/14/2021 04:35 AM HCT 31.2 (L) 11/13/2021 10:08 AM HCT 34.5 (L) 11/13/2021 04:58 AM PLATELET 123 (L) 11/14/2021 04:35 AM PLATELET 101 (L) 11/13/2021 10:08 AM PLATELET 118 (L) 11/13/2021 04:58 AM Chemistry Lab Results Component Value Date/Time GLUCOSE 94 11/14/2021 04:35 AM GLUCOSE 143 (H) 11/13/2021 04:58 AM GLUCOSE 133 (H) 11/12/2021 07:15 PM BUN 25 (H) 11/14/2021 04:35 AM BUN 30 (H) 11/13/2021 04:58 AM BUN 40 (H) 11/12/2021 07:15 PM CREATSERUM 0.58 (L) 11/14/2021 04:35 AM CREATSERUM 1.12 11/13/2021 04:58 AM CREATSERUM 2.54 (H) 11/12/2021 07:15 PM SODIUM 136 11/14/2021 04:35 AM SODIUM 140 11/13/2021 04:58 AM SODIUM 131 (L) 11/12/2021 07:15 PM POTASSIUM 4.2 11/14/2021 04:35 AM POTASSIUM 4.2 11/13/2021 04:58 AM POTASSIUM 4.2 11/12/2021 07:15 PM CHLORIDE 103 11/14/2021 04:35 AM CHLORIDE 107 11/13/2021 04:58 AM CHLORIDE 98 11/12/2021 07:15 PM CO2 25 11/14/2021 04:35 AM CO2 26 11/13/2021 04:58 AM CO2 24 11/12/2021 07:15 PM ALBUMIN 4.1 11/14/2021 04:35 AM ALBUMIN 4.1 11/14/2021 04:35 AM ALBUMIN 3.5 11/13/2021 04:58 AM CALCIUM 8.9 11/14/2021 04:35 AM CALCIUM 8.4 11/13/2021 04:58 AM CALCIUM 8.4 11/12/2021 07:15 PM PHOSPHORUS 2.9 11/14/2021 04:35 AM MAGNESIUM 1.9 11/14/2021 04:35 AM MAGNESIUM 2.1 11/13/2021 04:58 AM MAGNESIUM 2.0 11/12/2021 07:15 PM COAG Lab Results Component Value Date/Time PT 15.7 (H) 11/14/2021 04:35 AM PT 14.5 (H) 11/12/2021 07:15 PM INR 1.23 (H) 11/14/2021 04:35 AM INR 1.11 (H) 11/12/2021 07:15 PM PTT 31.9 11/12/2021 07:15 PM ABG No results found for: HCO3, PCO2, PO2 Other notable labs: Relevant microbiologic cultures: No results found for: RESULTCULT IMPRESSION /PLAN: Principal Problem: Hypotension - resolved, now off of vasopressors. No obvious source of infection. Unknown cause of hypotension. will stop IVF. Suspect overdose. Active Problems: Drug abuse - Drug screen positive for Suboxone, THC and cocaine Swelling of bilateral lower extremities - Ultrasound DVT negative, echocardiogram pending, BNP within normal limits IV lasix. Teddy wraps. Elevated d-dimer - Check ultrasound DVT- negative. Anemia , unspecified - Check iron, B12 and folate levels, hemoglobin is stable with no signs of active bleeding Class 2 obesity due to excess calories without serious comorbidity in adult Hyponatremia - Resolved, continued fluid administration Acute renal failure - Resolved, creatinine elevated above 2 on admission, urinalysis negative for infection Generalized weakness - Social service is following as well as physical and occupational therapy, patient likely will require rehabilitation Benign hypertension - blood pressure now stable Asthma; complained of sob. + d dimer. Ct pe study non acute. Add ICS. Prn nebs. Thrombocytopenia - Denies alcohol abuse, liver enzymes are within normal limits, check hepatitis screen- pt stated he thinks he might have hepatitis. Severe protein-calorie malnutrition: presence of inadequate intake, loss of muscle,presence of edema, and a decrease in functional status per ASPEN guidelines. Hyperbilirubinemia: follow Elevated INR: hepatitis panel pending Pancytopenia: follow cbc. Leukopenia Lymphopenia Microcytic hypochromic anemia Elevated BUN CRP elevated Rheumatoid factor positive: issac, ccp. Spep. Hepatitis panel. 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 Pt/ot. Plan snf Code Status Full Code Associated attestation - Paulino Peter Jr., DO - 11/14/2021 1:13 PM EDT Patient seen and examined independently on day of exam. I agree with assessment and plan. Total time spent in this encounter was 35 minutes. Greater than 50% of billing time done by me. EHR reviewed. All questions answered for the patient. Heart: RRR. Lungs CTA anterior. ABD: obese soft NT + BS times 4. B/L LE edema. Admitted with Hypotension: improved. Off of Levophed. +RF: history of Hep C. Would suspect that Hep C is cause of + RF. Will check blood cultures and Fungitell and procalcitonin and TB. Suboxone: Patient is going to go to [facility] Hyperbilirubinemia: will monitor Elevated INR: will monitor. Check fibrinogen Pancytopenia: will monitor. Check appropriate lab BUN is elevated: IV hydration check stools for occult blood and PPI CRP is elevated at 19.7 with normal ESR. Proteinuria with ketonuria with hyperbilirubinuria Urine tox screen positive for marijuana and cocaine and Suboxone Elevated D-dimer: no DVT check CT PE ECHO not read. Mesenteric edema on CT with ASCVD 11/14/21 1030 Time In/Out Time In 1030 Time Out 1100 Total Visit Time 30 minutes Total Treatment Time 30 minutes Subjective RN Approved Intervention as tolerated Objective Therapeutic Interventions Pt. sidesleeping in bed upon arrival. Pt. notes general fatigue this Am but agreeable to participate in therapy. Pt. able to complete supine to sitting EOB, CGA. Pt. completed seated B LE PRE's 2x10 reps. Pt.required several short rest breaks d/t fatigue. Pt. completed sit to stand to FWW, CGA with gait belt used. Pt. amb to chair with FWW, CGA. Pt. left seated with call light within reach and legs elevated. Pt. c/o pain to L knee after ambulation and requested NSG to address pain. RN alerted to Pt. request upon completion of treatment Bed Mobility Skill: Supine to Sit, Rehab Eval Level of Boutte: Supine/Sit contact guard Physical Assist/Nonphysical Assist: Supine/Sit 1 person assist Transfer Skill: Sit To Stand, Rehab Eval Boutte (Sit-Stand Transfers) contact guard Physical Assist/Nonphysical Assist: Sit/Stand 1 person assist Weight-Bearing Restrictions: Sit/Stand full weight-bearing Assistive Device For Transfer: Sit/Stand 2 wheeled walker Gait Skills, PT Eval Level of Boutte: Gait contact guard Physical Assist/Nonphysical Assist: Gait 1 person assist Weight-Bearing Restrictions: Gait full weight-bearing Assistive Device For Transfer: Gait 2 wheeled walker Gait Distance bed to chair 11/13/21 1455 Time In/Out Time In 1455 Time Out 1535 Total Visit Time 40 minutes Subjective RN Approved Intervention as tolerated Existing Precautions/Restrictions fall Subjective Reports Pt sitting up at bedside chair upon arrival this session. Pt agreeable for therapy and pt complains of generalized pain with no rating given Cognitive Status Examination Orientation Status (Cognition) oriented x 4 Level of Consciousness alert;cooperative Able to Follow Commands (Communication) WFL Personal Safety and Judgment impaired General Pain Documentation (Adult, OB, Peds) Presence of Pain complains of pain/discomfort Pain Location generalized Pain Management Interventions activity minimized Select Pain Scale (Pt did not rate pain) Objective Therapeutic Interventions Pt sitting up at EOB with WINN present in room. Pt requetsing to use BSC and pt completed STS to FWW, Bala x2 and then pt complete turn and pivot with pt then transfered to sitting on commode with verbal cues for reaching back for rails of BSC to assist with transferring to seated positoin. Pt with extended time on commode with pt able to have BM. Pt then completed STS with Bala x2 and Bala x1 maintained from this FLAKEBOARD LINE TENDER and WINN assisted pt with pericare. Pt then able to take approx 4-5 steps forward and then pt able to complete turn to sitting at EOB for rest break. Pt requesting to sit up in bedside chair. Spoke with nursing staff and ok to sit up in chair and nursing staff ok with transfering pt back to bed later. Pt completed STS with Bala x2 and pt able to take 2-3 steps forward and then transfer to sitting in bedside chair. Pt then completed B LE ther ex including marches, LAQs, hip abd, ankle pumps, and pillow squeezes x10 reps each. Pt remained sitting in bedsdie chair with LEs elevated and call light left within reach. Transfer Skill: Sit To Stand, Rehab Eval Boutte (Sit-Stand Transfers) minimum assist (75% patient effort) Physical Assist/Nonphysical Assist: Sit/Stand 2 person assist Weight-Bearing Restrictions: Sit/Stand full weight-bearing Assistive Device For Transfer: Sit/Stand 2 wheeled walker Gait Skills, PT Eval Level of Boutte: Gait minimum assist (75% patients effort) Physical Assist/Nonphysical Assist: Gait 2 person assist Weight-Bearing Restrictions: Gait full weight-bearing Assistive Device For Transfer: Gait 2 wheeled walker Gait Distance (bed to BSC, BSC to bed, bed to bedsdie chair) Plan Plan for next visit Cont with LE strengthening ex, transfers, and mobility Maintain frequency yes INITIAL INPATIENT DIETETIC ASSESSMENT Mr. Carmen Gilman is a 56 y.o. male admitted to [facility] for: 1. MARLENE (acute kidney injury) 2. Dehydration 3. Hypotension, unspecified hypotension type Nutrition Assessment Subjective Assessment/comments: Wt seems to fluctuate and RD questions accuracy of 300 lb weight. Weight fluctuation seems more likely related to fluid status and drug abuse than inadequate energy intake. No poor whit reported; 75% intake x 1 documented. Pt with extreme weakness and +3 BLE edema. Edema could be masking true LBM depletions. Pt is likely not well nourished however RD cannot confidently diagnose malnutrition at this time as more information is needed. WBC count is low - will place pt on neutropenic diet, HH 4gm Na modifer. Luke contraindicated d/t MARLENE. No ONS right now as pt has 75% intakes however will continue to follow. Anthropometrics: Ht Readings from Last 1 Encounters: 11/13/21 1.829 m (6') Wt Readings from Last 10 Encounters: 11/13/21 122.9 kg (271 lb) 10/07/21 136.1 kg (300 lb) 04/14/21 120.2 kg (265 lb) 03/30/21 120.2 kg (265 lb) 09/03/20 128.1 kg (282 lb 8 oz) 07/14/20 (!) 138.3 kg (305 lb) 10/30/19 (!) 137.6 kg (303 lb 6.4 oz) 11/06/18 133 kg (293 lb 3.2 oz) 06/02/18 126.1 kg (278 lb) 03/23/18 132.9 kg (293 lb) Cliff body weight: 77.6 kg (171 lb 1.2 oz) Adjusted ideal body weight: 95.7 kg (211 lb 0.7 oz) Body mass index is 36.75 kg/m . Recent weight loss: N/A - see assessment comments Nutrition Focused Physical Exam: Muscle wasting: MAULIK Fat wasting: MAULIK Edema: +3 BLE Nutrient deficiencies: checking iron/folate/B12 d/t anemia NVD: No Nutrition Risk Screening (MST) Has patient lost weight recently without trying?: 0- no Have you been eating poorly because of decreased appetite?: 0- No Malnutrition Screening Tool Score: 0 Nutrition: 2-->probably inadequate EER: Calories: 9436-8716 kcal (25-30 kcal/kg IBW) Protein: 62-78 gm (0.8-1 gm/kg IBW) - MARLENE Fluids: 1 mL/kcal or per provider choice Nutrition Intake Evaluation Current Diet Orders Procedures DIET HEART HEALTHY - 4 GM SODIUM Standing Status: Standing Number of Occurrences: 1 No Known Allergies Labs: Lab Results Component Value Date GLUCOSE 143 (H) 11/13/2021 GLUCOSE 133 (H) 11/12/2021 GLUCOSE 116 (H) 02/07/2018 HGBA1C 5.0 02/07/2018 SODIUM 140 11/13/2021 POTASSIUM 4.2 11/13/2021 MAGNESIUM 2.1 11/13/2021 ALBUMIN 3.5 11/13/2021 CALCIUM 8.4 11/13/2021 TP 6.7 11/13/2021 BUN 30 (H) 11/13/2021 CREATSERUM 1.12 11/13/2021 AST 29 11/13/2021 HGB 9.9 (L) 11/13/2021 HCT 31.2 (L) 11/13/2021 CHOLESTEROL 114 02/07/2018 TRIG 85 02/07/2018 HDL 32 (L) 02/07/2018 LDLCALC 65 02/07/2018 WBC (WHITE BLOOD COUNT) Date Value Ref Range Status 11/13/2021 3.0 (L) 3.6 - 11.0 10*3/uL Final PMH & PSH: Past Medical History: Diagnosis Date Asthma Essential hypertension, benign Past Surgical History: Procedure Laterality Date APPENDECTOMY BACK SURGERY FOOT SURGERY Nutrition Diagnosis NC-2.2 Altered nutrition related lab values related to physiological causes as evidenced by low WBC. Interventions Change diet order to neutropenic + HH 4gm NA Encourage PO intake as tolerated & medically able Daily weights @ 4 AM by nursing I/O documentation of all PO intake: all fluids, meals/snacks, and ONS if ordered Monitoring and Evaluation Monitor patient weight, labs, and PO intake AMRIK Daniels Registered Dietitian, Licensed Dietitian 11/13/21 SLOT SERVICE SPECIALIST met with patient to discuss discharge plans. SLOT SERVICE SPECIALIST explained that therapy was recommending the patient go to a facility for rehab. Patient states that he does not want to go to a facility. SLOT SERVICE SPECIALIST explained that it is not safe for him to return home. He states that he feels like he does well with therapy and is not going to go to a facility. He states "I just need a walker". SLOT SERVICE SPECIALIST provided patient with a walker from the DME supply. Paperwork completed. Patient agreeable to home health care. He is agreeable for home health and would like to use [facility]. SW team to make referral to [facility]. SLOT SERVICE SPECIALIST attempted to talk with patient about rehab one more time but patient stated "I am not going to go anywhere". SLOT SERVICE SPECIALIST to follow. SLOT SERVICE SPECIALIST Places HH referral to [facility] 11/13/21 0946 Time In/Out Time In 0946 Time Out 1025 Total Visit Time 39 minutes Total Treatment Time 39 minutes PT Therapy Completed Yes Initial Evaluation/Screen Completed? yes General Information RN Approved Intervention as tolerated Diagnosis hypotension Surgical Procedure none Past Medical History Past Medical History: Diagnosis Date Asthma Essential hypertension, benign Past Surgical History Past Surgical History: Procedure Laterality Date APPENDECTOMY BACK SURGERY FOOT SURGERY Existing Precautions/Restrictions fall;supplemental oxygen (O2 initially) Home Setting Residence Apartment Lives With alone First floor setup bedroom Number of stairs to enter home 0 Number of stairs in home (elevator to another level for laundry) Previous Level of Function Ambulation Skills independent Assistive Device none used Level of Ambulation community General Pain Documentation (Adult, OB, Peds) Presence of Pain complains of pain/discomfort Pain Location generalized Pain Management Interventions activity minimized Select Pain Scale (5/10) Cognitive Status Examination Orientation Status (Cognition) oriented x 4 Level of Consciousness alert Able to Follow Commands (Communication) WFL Personal Safety and Judgment impaired Range of Motion (ROM) Range of Motion Examination bilateral lower extremity ROM was WFL Manual Muscle Testing (MMT) Manual Muscle Testing Results deficits as listed below (L LE 4/5; R LE 4-/5) Bed Mobility Skill: Supine to Sit, Rehab Eval Level of Boutte: Supine/Sit stand-by assist Physical Assist/Nonphysical Assist: Supine/Sit 1 person assist Transfer Skill: Sit To Stand, Rehab Eval Boutte (Sit-Stand Transfers) moderate assist (50% patient effort) Physical Assist/Nonphysical Assist: Sit/Stand 2 person assist Weight-Bearing Restrictions: Sit/Stand full weight-bearing Assistive Device For Transfer: Sit/Stand 2 wheeled walker Gait Skills, PT Eval Level of Boutte: Gait contact guard Physical Assist/Nonphysical Assist: Gait 2 person assist Weight-Bearing Restrictions: Gait full weight-bearing Assistive Device For Transfer: Gait 2 wheeled walker Gait Distance (side steps to HOB) Balance Additional Documentation (Seated: Fair; Standing: Poor+) Sensory Examination Sensory Examination WFL Plan of Care Interventions Planned Therapy Interventions balance training;bed mobility training;edema control;endurance Additional Comments Pt requiring varying assist to perform mobility tasks. Pt has significant difficulty performing sit to stand transfers even from a raised surface. Pt reports significant pain in shoulders, hips, feet and elsewhere. Increased time seated EOB in preparation for STS and gait. Pt required increased cueing to complete tasks correctly but was able to follow commands. Once standing pt was able to take side steps to the HOB using the FWW. Pt left supine in bed with staff present. Assessment Assessment Narrative Pt is a 56 year old male admitted due to hypotension. Pt reports that he is typically independent with mobility but has been having difficulty recently due to increased pain. Pt requires increased assist to perform mobility tasks. Pt demonstrates LE weakness, impaired balance and decreased endurance. Pt would not be safe to return home and would benefit from continued PT services at an ECF. Discharge Recommendations Recommend ECF. Clinical Impression Co-evaluation/co-treatment performed? Yes, combination of simultaneous billable and non-billable treatment Criteria for Skilled Therapeutic Interventions Met (PT Eval) yes, treatment indicated Impairments Found (PT Eval) Strength;Balance;Transfers;Gait/L ocomotion;Aerobic capacity/endurance Rehab Potential (PT Eval) fair Therapy Frequency 7 times a week PT Therapies Still to Complete 5 Continue care plan yes Today's Treatment Included PT evaluation, ther ex and patient education Therapist Recommendations At Discharge Recommendations PT Services recommended at Discharge Plan Plan for next session Progress LE strength and balance to improve mobility. PT Goals: 1. Pt will increase standing balance to Fair to decrease fall risk. 2. Pt will perform all transfers with Min A x2 to ensure safety with mobility. 3. Pt will ambulate 50ft with FWW and CGA to ensure safety with ambulation. 4. Pt will be independent with HEP. SLOT SERVICE SPECIALIST attempted to meet with patient to discuss rehab placement. Per nursing patient is very lethargic. SLOT SERVICE SPECIALIST to re attempt later this date if able. 11/13/21 0910 Time In/Out Time In 0910 Time Out 1025 Total Visit Time 75 minutes Total Treatment Time 55 minutes Initial Evaluation/Screen Completed? yes General Information RN Approved Intervention as tolerated Admitting Diagnosis hypotension Surgical Procedure none Past Surgical History Past Surgical History: Procedure Laterality Date APPENDECTOMY BACK SURGERY FOOT SURGERY Past Medical History Past Medical History: Diagnosis Date Asthma Essential hypertension, benign Existing Precautions/Restrictions fall Previous Level of Function Bed Mobility/Transfers independent Bathing needs device Upper Body Dressing independent Lower Body Dressing independent Grooming independent Toileting independent Eating independent Home Management Skills independent General Pain Documentation (Adult, OB, Peds) Presence of Pain complains of pain/discomfort Pain Location generalized Pain Management Interventions positioning Select Pain Scale (5/10, reports more in shoulders) Home Setting Residence Apartment Lives With alone First floor setup bedroom;grab bars (walk in tub) Number of Stairs to Enter Home 0 Number of Stairs Within Home (elevator to the laundry on second floor) Equipment Available (grab bars by toilet) Cognitive Status Examination Orientation Status (Cognition) oriented x 4 Level of Consciousness alert Able to Follow Commands (Communication) WFL Personal Safety and Judgment impaired Sensory Examination Sensory Examination WFL Range of Motion (ROM) Range of Motion Examination other (see comments) Additional Documentation Yes ROM: Shoulder. Rehab Eval Left Shoulder Flexion AROM (approx 45 degrees scaption) Left Shoulder Flexion PROM (approx 100 degrees) Right Shoulder Flexion AROM (80 degrees approx) Right Shoulder Flexion PROM (approx 110 degrees) Manual Muscle Testing (MMT) Dominant Hand right Hand Enamel Drier, Right moderate Hand Enamel Drier, Left moderate Manual Muscle Testing Results other (see comments) Additional Documentation (shoulder flexion 3-/5) Bed Mobility Skill: Supine to Sit, Rehab Eval Level of Boutte: Supine/Sit stand-by assist Physical Assist/Nonphysical Assist: Supine/Sit 1 person assist Transfer Skill: Sit to Stand, Rehab Eval Level of Boutte: Sit/Stand moderate assist (50% patients effort) Physical Assist/Nonphysical Assist: Sit/Stand 2 person assist Weight-Bearing Restrictions: Sit/Stand full weight-bearing Assistive Device for Transfer: Sit/Stand wheeled walker Lower Body Dressing Level of Boutte dependent (less than 25% patients effort) Physical Assist/Nonphysical Assist 1 person + 1 person to manage equipment Toileting Level of Boutte maximum assist (25% patients effort) Physical Assist/Nonphysical Assist 1 person + 1 person to manage equipment Assistive Device (per simulation) General Therapy Interventions Planned Therapy Interventions (OT Eval) ADL retraining;balance training;strengthening;transfer training Clinical Impression Co-evaluation/co-treatment performed? Yes, simultaneous billable treatment Patient Instruction Pt instructed on hand placement and positioning for standing EOB and simulating toileting transfers patient is able to take several side steps on EOB, tech arriving for echo. Pt is CGA x2 for safety when completing mobility on EOB. Rehab Potential (OT Eval) good, to achieve stated therapy goals Therapy Frequency 6 times a week Today's Treatment Included Pt demonstrates significant decline in all areas of ADLs and functional mobility. Pt reports the last few days he has had increased difficulty with ADL/IADLs and hasn't been able to get out of bed well. Pt had a recent L toe injury and right foot fractures about one month ago, no surgical intervention. Pt reports since then he has had more difficulty caring for himself. Pt was not using a device for ambulation. Pt currently has increased shoulder pain which he reports started yesterday however he does have chronic pain in bilateral shoulders reports he needs them replaced. Pt denies any falls in the last month. Pt has swelling and edema in bilateral LE Continue care plan yes Goals Goals For Discharge Recommend ECF Discussed risk / benefits with patient Therapist Recommendations At Discharge Recommendations OT Services recommended at Discharge Plan Plan for next session continue with UE ROM, stability in standing for safety during transfers Therapist Information License # [id number] 1. Pt will complete LB dressing mod assist 2. Pt will complete sponge bathing mod assist 3. Pt will complete toileting to BSC min assist 4. Pt will complete hygiene/grooming sitting EOB set up 5. Pt will complete UB dressing min assist 6. Pt will participate B UE ROM and distal strengthening techniques to improve safety with transfers SLOT SERVICE SPECIALIST met with patient to discuss discharge plans. Patient states that he currently lives in a single story apartment alone. He states that he does not have advance directives. No listed emergency contacts. He asked SLOT SERVICE SPECIALIST to add his sister, Aliyah Gilman. Patient states that he has a history of anxiety and takes medication for it. Patient states that he is not independent right now. He states that he has not been able to get up to attempt to walk since coming to the hospital, but he was walking very slowly yesterday. Patient expresses extreme weakness and asked this SLOT SERVICE SPECIALIST to move his milk closer to him on his tray. Patient states that he is open to rehab, but would like to try to walk before making any decisions. SLOT SERVICE SPECIALIST to follow for therapy recommendations. Discharge Plan: SLOT SERVICE SPECIALIST following for therapy recommendations. 11/13/21 0906 Information Source Information Source patient Information Source Name Jennifer Ceron Information Source Number [phone] Contact Information Bindery Cutter Operator/SW Added to Care Team Yes This Nuclear Operator is Primary Bindery Cutter Operator/SW Yes Social Work Contact Name Jennifer Ceron Decal Applier's Living Environment Lives With alone Living Arrangements apartment Provides Primary Care For no one Primary Care Provided By self Support System Immediate family Able to Return to Prior Arrangements yes Employment/Financial Employed? No Cognitive/Perceptual/Developmenta l Current Mental Status/Cognitive Functioning no deficits noted Developmental Stage Stage 7 (35-65 years/Middle Adulthood) Generativity vs. Stagnation Emotional/Psychological Affect no deficits noted Mood congruent to situation Verbal Skills no deficits noted Current Interpersonal Conduct/Behavior appropriate to situation Mental Health Conditions/Symptoms anxiety disorder Thought Process Alterations no deficits noted Previous Mental Health Treatment medication Referral Information Referral Source admission list;physician documented in this encounter [facility] 11-15-2021 Hospital course Narrative Images from the original note were not included. Discharge Summary Name: Carmen Gilman Age: 56 y.o. Birthday: 1965 Admit Date: 11/12/2021 6:56 PM Discharge Date: 11/15/2021 Discharge Assesment and Plan: Principal Problem: Hypotension - resolved, now off of vasopressors. No obvious source of infection. Unknown cause of hypotension. Suspect overdose. dc cardizem. Will continue lisinopril Active Problems: Drug abuse - Drug screen positive for Suboxone, THC and cocaine Swelling of bilateral lower extremities - Ultrasound DVT negative, echocardiogram pending read., BNP within normal limits IV lasix. Teddy wraps. -- improved down 10 liters . Dc with lasix and spironolactone. 2/2 liver disease Elevated d-dimer - Check ultrasound DVT- negative. Anemia , unspecified - hemoglobin is stable with no signs of active bleeding- fu pcp Class 2 obesity due to excess calories without serious comorbidity in adult Hyponatremia - Resolved Acute renal failure - Resolved, creatinine elevated above 2 on admission, urinalysis negative for infection Generalized weakness - Social service is following as well as physical and occupational therapy, patient likely will require rehabilitation Benign hypertension - blood pressure now stable Asthma; complained of sob. + d dimer. Ct pe study non acute.now on room air. Wheezing improved. Thrombocytopenia - Denies alcohol abuse, liver enzymes are within normal limits, 2/2 liver disease Severe protein-calorie malnutrition: presence of inadequate intake, loss of muscle,presence of edema, and a decrease in functional status per ASPEN guidelines. Hyperbilirubinemia: follow- stable. Elevated INR: 1.21 Pancytopenia: 2/2 liver disease. Leukopenia Lymphopenia Microcytic hypochromic anemia Elevated BUN CRP elevated Rheumatoid factor positive: issac, ccp. Spep. Hepatitis panel. 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 Pt/ot. Improved after fluid removal. Refuses to stay. Refused snf. Dc home. Brief Summary of Hospital Course: Patient presented with dizziness and increased leg edema. Patient was profoundly hypotensive and required Levophed drip for about 12 hours. He had acute renal failure this drug screen was positive for cocaine, THC, Suboxone. Drip was weaned off and his blood pressure has been stable. Acute kidney injury resolved. Patient found to have pancytopenia positive rheumatoid factor and we discovered patient is positive for hepatitis B and C. He will need follow-up with infectious disease. We discussed this with Carmen. He stated understanding. He has been diuresed now 10 L. His edema in his legs is improving. He'll be sent home with diuretic. We discussed rehabilitation however patient states feeling much better and he ambulated in the room today by himself for walker. He refuses SNF. He'll be discharged today. Discharge Vital Signs: Blood pressure 132/69, pulse 80, temperature 97.8 F (36.6 C), temperature source Oral, resp. rate 17, height 1.829 m (6'), weight 123 kg (271 lb 1.6 oz), SpO2 95 %. O2 Sat (%): 95 % (11/15 805) O2 Device: room air (11/15 805) Discharge Labs: Lab Results Component Value Date WBC 2.3 (L) 11/15/2021 HGB 9.7 (L) 11/15/2021 HCT 30.4 (L) 11/15/2021 PLATELET 109 (L) 11/15/2021 MCV 68.7 (L) 11/15/2021 Lab Results Component Value Date SODIUM 137 11/15/2021 POTASSIUM 3.6 11/15/2021 CHLORIDE 95 (L) 11/15/2021 CO2 29 11/15/2021 BUN 23 (H) 11/15/2021 CREATSERUM 0.68 11/15/2021 GLUCOSE 94 11/15/2021 Lab Results Component Value Date ALT 31 11/15/2021 AST 40 11/15/2021 ALKPHOS 31 (L) 11/15/2021 BILITOTAL 1.4 (H) 11/15/2021 BILIDIRECT 0.3 (H) 11/15/2021 PHYSICAL EXAM: General: Patient resting comfortably. Awake. No acute distress. Cardiovascular: Regular rate and rhythm, without murmurs, rubs, or gallops. Respiratory: Bilateral Upper and Lower Lobes without wheezes, rales, or rhonchi , diminished. Abdomen: Soft, rounded, non-tender. Bowel sounds present x4 quadrants. No rebound. No organomegaly or masses noted upon deep palpation. Extremities: + 1 ble edema, clubbing or cyanosis, pulses palpable 2+ distally. Skin: Warm, Dry, Intact. Neuro: Cranial nerves II-XII grossly intact. No focal deficits Discharge Medications: Medication List for when you go home START taking these medications furOSEmide 40 MG TABS Take 1 tablet by mouth daily. Commonly known as: LASIX spironolactone 25 MG TABS Take 1 tablet by mouth daily. Commonly known as: ALDACTONE CHANGE how you take these medications lisinopril 20 MG TABS Take 1 tablet by mouth daily. Commonly known as: PRINIVIL For diagnoses: Essential hypertension What changed: Another medication with the same name was removed. Continue taking this medication, and follow the directions you see here. CONTINUE taking these medications * albuterol 108 (90 Base) MCG/ACT AERS inhaler Inhale 1 puff every 6 hours as needed for Wheezing. For diagnoses: Chronic obstructive pulmonary disease with acute exacerbation * albuterol (2.5 MG/3ML) 0.083% inhalation solution Take 3 mL by nebulization every 6 hours as needed. Commonly known as: PROVENTIL For diagnoses: Chronic obstructive pulmonary disease with acute exacerbation Aspirin [address] tablet Take 1 tablet by mouth daily. For diagnoses: Atrial fibrillation, unspecified type Notes to patient: Taken on 11/15/21. Next dose due 11/16/21 Bevespi Aerosphere 9-4.8 MCG/ACT AERO Inhale 2 puffs 2 times daily. For diagnoses: Chronic obstructive pulmonary disease with acute exacerbation Generic drug: Glycopyrrolate-Formoterol buprenorphine [address] 8 mg under tongue. Commonly known as: SUBUTEX clonazePAM 0.5 MG TABS Take 0.5 mg by mouth 2 times daily. Commonly known as: KLONOPIN Combivent Respimat 20-100 MCG/ACT AERS inhaler Generic drug: ipratropium-albuterol gabapentin 800 MG TABS Take 1 tablet by mouth 3 times daily. Commonly known as: NEURONTIN For diagnoses: Chronic pain syndrome predniSONE 10 MG TABS TAKE 6 TABS BY MOUTH X 1 DAY & DECREASE BY ONE DAILY UNTIL GONE 6,5,4,3,2,1 Commonly known as: DELTASONE * The same medication is listed twice. Please discuss with your provider. STOP taking these medications diclofenac EC [address] tablet Commonly known as: VOLTAREN diltiazem 240 MG cap XR capsule XL Commonly known as: CARDIZEM CD lisinopril 40 MG TABS Commonly known as: PRINIVIL You also have another medication with the same name that you need to continue taking as instructed. Discharge Activity: Resume pre-hospital activities as tolerated. Discharge Diet: Resume pre-hospital diet as tolerated. Discharge Follow-up: Ani Worley APRN-ENVIRONMENTAL [employer] [address] [facility] [id number] Follow up in 1 week(s) Nathan Branch MD [address] [phone] Follow up in 1 week(s) Discharge Disposition: Patient will be discharged in stable condition. Discharge Time: Including assessment, planning, and medication reconciliation was greater than 35 min. Raymond Osman CNP completing Discharge Summary for attending physician. Please note Portions of this note utilized [employer] dictation software, please excuse any typographical or grammatical errors Associated attestation - Paulino Peter Jr., DO - 11/15/2021 12:01 PM EDT Patient seen and examined independently on day of exam. I agree with assessment and plan. Total time spent in this encounter was greater than 30 minutes. Greater than 50% of billing time done by me. All questions answered for the patient. EHR reviewed. Patient wants to go home. Patient is able to get out of bed without assistance and with a walker can transfer himself to a chair. Decreased B/L LE edema but still present. Heart: RRR. Lungs CTA anterior. ABD: obese soft NT + BS times 4. Patient admitted with Hypotension which has resolved Testing is positive for Hep B&C and patient is going to F/U with Dr. Hayden ID as out patient + RF: would suspect this is secondary to Hep C B/L LE edema: patient is down 10 liters during this hospitalization documented in this encounter [facility] 11-15-2021 Note Formatting of this n ote might be different from the original. Problem: Patient Care Overview Goal: Plan of Care Review Outcome: Adequate for Discharge Goal: Individualization & Mutuality Outcome: Adequate for Discharge Goal: Discharge Needs Assessment Outcome: Adequate for Discharge Goal: Interdisciplinary Rounds/Family Conf Outcome: Adequate for Discharge Problem: Skin Integrity Impairment, Risk/Actual (Adult) Goal: Identify Related Risk Factors and Signs and Symptoms Description: Related risk factors and signs and symptoms are identified upon initiation of Human Response Clinical Practice Guideline (CPG) Outcome: Adequate for Discharge Goal: Skin Integrity/Wound Healing Description: Patient will demonstrate the desired outcomes by discharge/transition of care. Outcome: Adequate for Discharge Problem: Activity Intolerance (Adult) Goal: Activity Tolerance Description: Patient will demonstrate the desired outcomes by discharge/transition of care. 1. Pt will complete LB dressing mod assist 2. Pt will complete sponge bathing mod assist 3. Pt will complete toileting to BSC min assist 4. Pt will complete hygiene/grooming sitting EOB set up 5. Pt will complete UB dressing min assist 6. Pt will participate B UE ROM and distal strengthening techniques to improve safety with transfers Funmi Lay, OT 11/13/2021 11:18 AM Outcome: Adequate for Discharge Problem: Mobility, Physical Impaired (Adult) Goal: Enhanced Mobility Skills Description: Patient will demonstrate the desired outcomes by discharge/transition of care. PT Goals: 1. Pt will increase standing balance to Fair to decrease fall risk. 2. Pt will perform all transfers with Min A x2 to ensure safety with mobility. 3. Pt will ambulate 50ft with FWW and CGA to ensure safety with ambulation. 4. Pt will be independent with HEP. Kika Arreola, PT, DPT 11/13/2021 Outcome: Adequate for Discharge Problem: Infection, Risk/Actual (Adult) Goal: Identify Related Risk Factors and Signs and Symptoms Description: Related risk factors and signs and symptoms are identified upon initiation of Human Response Clinical Practice Guideline (CPG) Outcome: Adequate for Discharge Goal: Infection Prevention/Resolution Description: Patient will demonstrate the desired outcomes by discharge/transition of care. Outcome: Adequate for Discharge AVS reviewed with pt. All questions answered. Pt denies any further needs at this time. Home medications returned to patient and form completed. LDAs removed. VSS. Pt left unit via wheelchair, with all belongings. T [facility] 11-15-2021 Miscellaneous Notes Problem: Patient Care Overview Goal: Plan of Care Review Outcome: Adequate for Discharge Goal: Individualization & Mutuality Outcome: Adequate for Discharge Goal: Discharge Needs Assessment Outcome: Adequate for Discharge Goal: Interdisciplinary Rounds/Family Conf Outcome: Adequate for Discharge Problem: Skin Integrity Impairment, Risk/Actual (Adult) Goal: Identify Related Risk Factors and Signs and Symptoms Description: Related risk factors and signs and symptoms are identified upon initiation of Human Response Clinical Practice Guideline (CPG) Outcome: Adequate for Discharge Goal: Skin Integrity/Wound Healing Description: Patient will demonstrate the desired outcomes by discharge/transition of care. Outcome: Adequate for Discharge Problem: Activity Intolerance (Adult) Goal: Activity Tolerance Description: Patient will demonstrate the desired outcomes by discharge/transition of care. 1. Pt will complete LB dressing mod assist 2. Pt will complete sponge bathing mod assist 3. Pt will complete toileting to BSC min assist 4. Pt will complete hygiene/grooming sitting EOB set up 5. Pt will complete UB dressing min assist 6. Pt will participate B UE ROM and distal strengthening techniques to improve safety with transfers Funmi Lay OT 11/13/2021 11:18 AM Outcome: Adequate for Discharge Problem: Mobility, Physical Impaired (Adult) Goal: Enhanced Mobility Skills Description: Patient will demonstrate the desired outcomes by discharge/transition of care. PT Goals: 1. Pt will increase standing balance to Fair to decrease fall risk. 2. Pt will perform all transfers with Min A x2 to ensure safety with mobility. 3. Pt will ambulate 50ft with FWW and CGA to ensure safety with ambulation. 4. Pt will be independent with HEP. Kika Arreola, PT, DPT 11/13/2021 Outcome: Adequate for Discharge Problem: Infection, Risk/Actual (Adult) Goal: Identify Related Risk Factors and Signs and Symptoms Description: Related risk factors and signs and symptoms are identified upon initiation of Human Response Clinical Practice Guideline (CPG) Outcome: Adequate for Discharge Goal: Infection Prevention/Resolution Description: Patient will demonstrate the desired outcomes by discharge/transition of care. Outcome: Adequate for Discharge AVS reviewed with pt. All questions answered. Pt denies any further needs at this time. Home medications returned to patient and form completed. LDAs removed. VSS. Pt left unit via wheelchair, with all belongings. Pt resting with eyes closed, no change in assessment, call light in reach. Pt up in recliner, lunch ordered . No change in previous assessment, call light in each. I certify that this patient requires inpatient services at this time. I anticipate the expected length of stay will include at least two midnights. Inpatient services are due to the following medical concerns: 1. MARLENE (acute kidney injury) 2. Dehydration 3. Hypotension, unspecified hypotension type Plans for post hospitalization care will be discharge to home. 0000- No changes from previous 2000 shift assessment unless charted otherwise. 0500- No changes from previous 0000 shift assessment unless charted otherwise. No changes in assessment since previous unless otherwise charted Patient remain up in chair, no complaints of pain, call light within reach Daughter updated via phone Waiting on echo and US results No changes in assessment since 0800 unless otherwise charted notified Johnathan OLVERA that patient would like to speak with him Patient is unable to move legs appropriately, struggled feeding himself breakfast (Johnathan OLVERA notified) Call light within reach attempted to call daughter martin Gross voicemail box set up Problem: Patient Care Overview Goal: Plan of Care Review Outcome: Ongoing Goal: Individualization & Mutuality Outcome: Ongoing Goal: Discharge Needs Assessment Outcome: Ongoing Goal: Interdisciplinary Rounds/Family Conf Outcome: Ongoing documented in this encounter [facility] 11-14-2021 Note Formatting of this n ote might be different from the original. Pt resting with eyes closed, no change in assessment, call light in reach. [facility] 11-14-2021 Note Formatting of this n ote might be different from the original. Pt up in recliner, lunch ordered . No change in previous assessment, call light in each. [facility] 11-14-2021 Note Formatting of this n ote is different from the original. I certify that this patient requires inpatient services at this time. I anticipate the expected length of stay will include at least two midnights. Inpatient services are due to the following medical concerns: 1. MARLENE (acute kidney injury) 2. Dehydration 3. Hypotension, unspecified hypotension type Plans for post hospitalization care will be discharge to home. T [facility] 11-14-2021 Note Formatting of this n ote might be different from the original. 0000- No changes from previous 1999 shift assessment unless charted otherwise. 0500- No changes from previous 0000 shift assessment unless charted otherwise. [facility] 11-13-2021 Note Formatting of this n ote might be different from the original. No changes in assessment since previous unless otherwise charted Patient remain up in chair, no complaints of pain, call light within reach Daughter updated via phone Waiting on echo and US results [facility] 11-13-2021 Note Formatting of this n ote might be different from the original. No changes in assessment since 0800 unless otherwise charted [facility] 11-13-2021 History and physical note History and Physical Examination 11/13/21 11:59 AM Chief Complaint: Dizziness History of Present Illness: Patient is a 56 y.o. male presents to [facility] for evaluation of dizziness. Patient with a history of drug abuse and HTN presents with dizziness and mild abdominal pain. Symptoms came on gradually over the past 24 hours. On evaluation in the ED a CT scan of the abdomen was done and consistent with peripancreatic stranding. Lipase WNL. He was hypotensive. He did receive IV fluids. Patient essentially , required Levophed for blood pressure support. Labs were consistent with Acute renal failure. Drug screen is positive for cocaine , THC and suboxone. Urinalysis negative for infection. The patient was continued on a Levophed drip and admitted to the intensive care unit. On my examination the patient is alert and oriented. He is now off of the Levophed drip, blood pressure remained stable. Lab work shows that his acute kidney injury has resolved. Patient's d-dimer is elevated above 9. He is currently on room air and not hypoxic. He does have significant bilateral lower extremity swelling, no wounds noted and pulses present bilaterally. Ultrasound DVT is pending. Continue with IV fluid administration. CK and BNP are within normal limits. Echocardiogram is currently pending. Objective: Patient Active Problem List Diagnosis Date Noted Drug abuse 11/13/2021 Swelling of bilateral lower extremities 11/13/2021 Elevated d-dimer 11/13/2021 Anemia , unspecified 11/13/2021 Class 2 obesity due to excess calories without serious comorbidity in adult 11/13/2021 Hyponatremia 11/13/2021 Acute renal failure 11/13/2021 Generalized weakness 11/13/2021 Benign hypertension 11/13/2021 Asthma 11/13/2021 Thrombocytopenia 11/13/2021 Hypotension 11/12/2021 Obesity: body mass index of 35.0-39.9 03/10/2018 Past Medical History: Diagnosis Date Asthma Essential hypertension, benign Past Surgical History: Procedure Laterality Date APPENDECTOMY BACK SURGERY FOOT SURGERY Social History Tobacco Use Smoking status: Former Smoker Types: Cigarettes Quit date: 2007 Years since quittin.2 Smokeless tobacco: Current User Types: Chew Substance Use Topics Alcohol use: Not Currently Family History Problem Relation Age of Onset Heart Disease - Other Mother Diabetes Mother Heart Disease - Other Father Medications Prior to Admission Medication Sig Dispense Refill Last Dose Aspirin [address] tablet Take 1 tablet by mouth daily. 30 tablet 11 buprenorphine [address] 8 mg under tongue. clonazePAM 0.5 MG tablet Take 0.5 mg by mouth 2 times daily. gabapentin 800 MG tablet Take 1 tablet by mouth 3 times daily. 90 tablet 0 lisinopril 20 MG tablet Take 1 tablet by mouth daily. 30 tablet 2 albuterol (2.5 MG/3ML) 0.083% inhalation solution Take 3 mL by nebulization every 6 hours as needed. 1 Package 3 albuterol 108 (90 Base) MCG/ACT Aero Soln inhaler Inhale 1 puff every 6 hours as needed for Wheezing. 1 Inhaler 2 Combivent Respimat 20-100 MCG/ACT Aero Soln inhaler diclofenac EC [address] tablet Take 1 tablet by mouth 2 times daily for 10 days. 20 tablet 1 diltiazem 240 MG Cap SR 24HR capsule XL Take 1 capsule by mouth daily. 30 capsule 2 Glycopyrrolate-Formoterol (Bevespi Aerosphere) 9-4.8 MCG/ACT Aerosol Inhale 2 puffs 2 times daily. 1 Inhaler 11 lisinopril 40 MG tablet Take 40 mg by mouth daily. predniSONE 10 MG tablet TAKE 6 TABS BY MOUTH X 1 DAY & DECREASE BY ONE DAILY UNTIL GONE 6,5,4,3,2,1 No Known Allergies Review of Systems: Dizziness and abdominal pain, see history of present illness Ten systems reviewed and found to be negative unless otherwise stated in the history and present illness. PHYSICAL EXAM: Patient Vitals for the past 8 hrs: BP Pulse Resp SpO2 11/13/21 1130 -- 78 -- 97 % 11/13/21 1115 -- 82 23 97 % 11/13/21 1100 -- -- -- 97 % 11/13/21 1030 -- -- -- 96 % 11/13/21 1000 127/62 94 (!) 33 92 % 11/13/21 0930 113/55 86 (!) 30 95 % 11/13/21 0920 115/55 93 (!) 27 92 % 11/13/21 0910 -- 93 (!) 25 95 % 11/13/21 0900 -- 95 (!) 30 93 % 11/13/21 0830 104/56 83 -- 97 % 11/13/21 0800 97/49 77 19 96 % 11/13/21 0730 91/46 77 (!) 29 95 % 11/13/21 0715 90/53 79 21 95 % 11/13/21 0700 91/51 79 24 96 % 11/13/21 0645 92/45 80 18 95 % 11/13/21 0630 103/50 81 20 94 % 11/13/21 0615 97/53 81 17 96 % 11/13/21 0600 112/58 84 24 98 % 11/13/21 0545 117/56 83 24 99 % 11/13/21 0530 120/58 85 24 100 % 11/13/21 0515 115/56 84 (!) 27 97 % 11/13/21 0500 123/64 84 24 99 % 11/13/21 0445 105/56 90 (!) 26 99 % 11/13/21 0430 109/52 82 22 98 % 11/13/21 0415 135/60 87 22 97 % 11/13/21 0400 112/58 76 24 97 % General: Patient resting comfortably. Awake. No acute distress. HEENT: Normalcephalic, atraumatic. Pupils equal, round, reactive, to light and accomodation B/L. Bilateral nares patent without obvious drainage. Oral mucosa moist, pink, intact without ulcers or lesions. Neck: No JVD, no thyromegaly, no anterior or posterior lymphadenopathy. Cardiovascular: Regular rate and rhythm, without murmurs, rubs, or gallops. Respiratory: Bilateral Upper and Lower Lobes anterior and posteriorly without wheezes, rales, or rhonchi Abdomen: Soft, rounded, non-tender. Bowel sounds present x4 quadrants. No rebound. No organomegaly or masses noted upon deep palpation. Extremities: 3+ bilateral lower extremity edema Skin: Warm, Dry, Intact. No obvious rashes or lesions noted. Neuro: Patient awake, alert, orientedx3. Cranial nerves 2-12 grossly intact upon seated examination. No focal defiects noted. M/S: No joint errythema or pain noted; no clubbing Diagnostics: Lab Results Component Value Date WBC 3.0 (L) 11/13/2021 HGB 9.9 (L) 11/13/2021 HCT 31.2 (L) 11/13/2021 PLATELET 101 (L) 11/13/2021 MCV 69.4 (L) 11/13/2021 @LASTMAGNESIUM(1D,2)@ Lab Results Component Value Date INR 1.11 (H) 11/12/2021 PT 14.5 (H) 11/12/2021 Lab Results Component Value Date CREATSERUM 1.12 11/13/2021 BUN 30 (H) 11/13/2021 SODIUM 140 11/13/2021 POTASSIUM 4.2 11/13/2021 CHLORIDE 107 11/13/2021 CO2 26 11/13/2021 Lab Results Component Value Date SPGRVTYUR 1.020 11/12/2021 GLUCOSEURINE NEGATIVE 11/12/2021 BILIRUBINURI MODERATE (A) 11/12/2021 KETONESURINE 15 (A) 11/12/2021 NITRITESURIN NEGATIVE 11/12/2021 LEUKOCESTUR NEGATIVE 11/12/2021 WBCURINE NEGATIVE 11/12/2021 RBCURINE NEGATIVE 11/12/2021 BACTERIAURIN NEGATIVE 11/12/2021 Full Code Impression and Plan: Principal Problem: Hypotension - resolved, now off of vasopressors. No obvious source of infection. Unknown cause of hypotension. Continue with IV fluid administration. Active Problems: Drug abuse - Drug screen positive for Suboxone, THC and cocaine Swelling of bilateral lower extremities - Ultrasound DVT pending, echocardiogram pending, BNP within normal limits Elevated d-dimer - Check ultrasound DVT Anemia , unspecified - Check iron, B12 and folate levels, hemoglobin is stable with no signs of active bleeding Class 2 obesity due to excess calories without serious comorbidity in adult Hyponatremia - Resolved, continued fluid administration Acute renal failure - Resolved, creatinine elevated above 2 on admission, urinalysis negative for infection Generalized weakness - Social service is following as well as physical and occupational therapy, patient likely will require rehabilitation Benign hypertension - blood pressure now stable Asthma Thrombocytopenia - Denies alcohol abuse, liver enzymes are within normal limits, check hepatitis screen PT OT SS for dc planning GI/DVT prophylaxis with protonix and Lovenox This plan of care was initiated in collaboration with the attending physician Dr. Rodriguez Please note Portions of this note utilized [employer] software, please excuse any typographical or grammatical errors [facility] Associated attestation - Son Rodriguez MD - 11/14/2021 4:48 AM EDT I have personally seen and examined Carmen Gilman. I have personally reviewed all available clinical data related to this encounter including, but not limited to, radiolgraphs and reports, laboratory data, and procedure reports. I have been involved in formulation of the assessment and plan. DOS: 11/13/2021 HPI: came in c/o dizzyness , near syncopy, low bp. Positive for cocaine and THC. No fever. BP 70/40 ROS: Ten systems reviewed, unless limited by patient' or care providers' inability or unavailability. Reported above or following. Assessment and additional plans: Hypotension, check tft, cortisol RF positive needs further crowe MRSA nasal colonization ?DM Pancytopenia. Contact me if you need any clarification. Son Rodriguez MD Please note: Portions of this note utilized [employer] software, please excuse any typographical or grammatical errors. Which inadvertently, might change the meaning and understanding. [facility] 11-13-2021 History and physical note History and Physical Examination 11/13/21 11:59 AM Chief Complaint: Dizziness History of Present Illness: Patient is a 56 y.o. male presents to [facility] for evaluation of dizziness. Patient with a history of drug abuse and HTN presents with dizziness and mild abdominal pain. Symptoms came on gradually over the past 24 hours. On evaluation in the ED a CT scan of the abdomen was done and consistent with peripancreatic stranding. Lipase WNL. He was hypotensive. He did receive IV fluids. Patient essentially , required Levophed for blood pressure support. Labs were consistent with Acute renal failure. Drug screen is positive for cocaine , THC and suboxone. Urinalysis negative for infection. The patient was continued on a Levophed drip and admitted to the intensive care unit. On my examination the patient is alert and oriented. He is now off of the Levophed drip, blood pressure remained stable. Lab work shows that his acute kidney injury has resolved. Patient's d-dimer is elevated above 9. He is currently on room air and not hypoxic. He does have significant bilateral lower extremity swelling, no wounds noted and pulses present bilaterally. Ultrasound DVT is pending. Continue with IV fluid administration. CK and BNP are within normal limits. Echocardiogram is currently pending. Objective: Patient Active Problem List Diagnosis Date Noted Drug abuse 11/13/2021 Swelling of bilateral lower extremities 11/13/2021 Elevated d-dimer 11/13/2021 Anemia , unspecified 11/13/2021 Class 2 obesity due to excess calories without serious comorbidity in adult 11/13/2021 Hyponatremia 11/13/2021 Acute renal failure 11/13/2021 Generalized weakness 11/13/2021 Benign hypertension 11/13/2021 Asthma 11/13/2021 Thrombocytopenia 11/13/2021 Hypotension 11/12/2021 Obesity: body mass index of 35.0-39.9 03/10/2018 Past Medical History: Diagnosis Date Asthma Essential hypertension, benign Past Surgical History: Procedure Laterality Date APPENDECTOMY BACK SURGERY FOOT SURGERY Social History Tobacco Use Smoking status: Former Smoker Types: Cigarettes Quit date: 2007 Years since quittin.2 Smokeless tobacco: Current User Types: Chew Substance Use Topics Alcohol use: Not Currently Family History Problem Relation Age of Onset Heart Disease - Other Mother Diabetes Mother Heart Disease - Other Father Medications Prior to Admission Medication Sig Dispense Refill Last Dose Aspirin [address] tablet Take 1 tablet by mouth daily. 30 tablet 11 buprenorphine [address] 8 mg under tongue. clonazePAM 0.5 MG tablet Take 0.5 mg by mouth 2 times daily. gabapentin 800 MG tablet Take 1 tablet by mouth 3 times daily. 90 tablet 0 lisinopril 20 MG tablet Take 1 tablet by mouth daily. 30 tablet 2 albuterol (2.5 MG/3ML) 0.083% inhalation solution Take 3 mL by nebulization every 6 hours as needed. 1 Package 3 albuterol 108 (90 Base) MCG/ACT Aero Soln inhaler Inhale 1 puff every 6 hours as needed for Wheezing. 1 Inhaler 2 Combivent Respimat 20-100 MCG/ACT Aero Soln inhaler diclofenac EC [address] tablet Take 1 tablet by mouth 2 times daily for 10 days. 20 tablet 1 diltiazem 240 MG Cap SR 24HR capsule XL Take 1 capsule by mouth daily. 30 capsule 2 Glycopyrrolate-Formoterol (Bevespi Aerosphere) 9-4.8 MCG/ACT Aerosol Inhale 2 puffs 2 times daily. 1 Inhaler 11 lisinopril 40 MG tablet Take 40 mg by mouth daily. predniSONE 10 MG tablet TAKE 6 TABS BY MOUTH X 1 DAY & DECREASE BY ONE DAILY UNTIL GONE 6,5,4,3,2,1 No Known Allergies Review of Systems: Dizziness and abdominal pain, see history of present illness Ten systems reviewed and found to be negative unless otherwise stated in the history and present illness. PHYSICAL EXAM: Patient Vitals for the past 8 hrs: BP Pulse Resp SpO2 11/13/21 1130 -- 78 -- 97 % 11/13/21 1115 -- 82 23 97 % 11/13/21 1100 -- -- -- 97 % 11/13/21 1030 -- -- -- 96 % 11/13/21 1000 127/62 94 (!) 33 92 % 11/13/21 0930 113/55 86 (!) 30 95 % 11/13/21 0920 115/55 93 (!) 27 92 % 11/13/21 0910 -- 93 (!) 25 95 % 11/13/21 0900 -- 95 (!) 30 93 % 11/13/21 0830 104/56 83 -- 97 % 11/13/21 0800 97/49 77 19 96 % 11/13/21 0730 91/46 77 (!) 29 95 % 11/13/21 0715 90/53 79 21 95 % 11/13/21 0700 91/51 79 24 96 % 11/13/21 0645 92/45 80 18 95 % 11/13/21 0630 103/50 81 20 94 % 11/13/21 0615 97/53 81 17 96 % 11/13/21 0600 112/58 84 24 98 % 11/13/21 0545 117/56 83 24 99 % 11/13/21 0530 120/58 85 24 100 % 11/13/21 0515 115/56 84 (!) 27 97 % 11/13/21 0500 123/64 84 24 99 % 11/13/21 0445 105/56 90 (!) 26 99 % 11/13/21 0430 109/52 82 22 98 % 11/13/21 0415 135/60 87 22 97 % 11/13/21 0400 112/58 76 24 97 % General: Patient resting comfortably. Awake. No acute distress. HEENT: Normalcephalic, atraumatic. Pupils equal, round, reactive, to light and accomodation B/L. Bilateral nares patent without obvious drainage. Oral mucosa moist, pink, intact without ulcers or lesions. Neck: No JVD, no thyromegaly, no anterior or posterior lymphadenopathy. Cardiovascular: Regular rate and rhythm, without murmurs, rubs, or gallops. Respiratory: Bilateral Upper and Lower Lobes anterior and posteriorly without wheezes, rales, or rhonchi Abdomen: Soft, rounded, non-tender. Bowel sounds present x4 quadrants. No rebound. No organomegaly or masses noted upon deep palpation. Extremities: 3+ bilateral lower extremity edema Skin: Warm, Dry, Intact. No obvious rashes or lesions noted. Neuro: Patient awake, alert, orientedx3. Cranial nerves 2-12 grossly intact upon seated examination. No focal defiects noted. M/S: No joint errythema or pain noted; no clubbing Diagnostics: Lab Results Component Value Date WBC 3.0 (L) 11/13/2021 HGB 9.9 (L) 11/13/2021 HCT 31.2 (L) 11/13/2021 PLATELET 101 (L) 11/13/2021 MCV 69.4 (L) 11/13/2021 @LASTMAGNESIUM(1D,2)@ Lab Results Component Value Date INR 1.11 (H) 11/12/2021 PT 14.5 (H) 11/12/2021 Lab Results Component Value Date CREATSERUM 1.12 11/13/2021 BUN 30 (H) 11/13/2021 SODIUM 140 11/13/2021 POTASSIUM 4.2 11/13/2021 CHLORIDE 107 11/13/2021 CO2 26 11/13/2021 Lab Results Component Value Date SPGRVTYUR 1.020 11/12/2021 GLUCOSEURINE NEGATIVE 11/12/2021 BILIRUBINURI MODERATE (A) 11/12/2021 KETONESURINE 15 (A) 11/12/2021 NITRITESURIN NEGATIVE 11/12/2021 LEUKOCESTUR NEGATIVE 11/12/2021 WBCURINE NEGATIVE 11/12/2021 RBCURINE NEGATIVE 11/12/2021 BACTERIAURIN NEGATIVE 11/12/2021 Full Code Impression and Plan: Principal Problem: Hypotension - resolved, now off of vasopressors. No obvious source of infection. Unknown cause of hypotension. Continue with IV fluid administration. Active Problems: Drug abuse - Drug screen positive for Suboxone, THC and cocaine Swelling of bilateral lower extremities - Ultrasound DVT pending, echocardiogram pending, BNP within normal limits Elevated d-dimer - Check ultrasound DVT Anemia , unspecified - Check iron, B12 and folate levels, hemoglobin is stable with no signs of active bleeding Class 2 obesity due to excess calories without serious comorbidity in adult Hyponatremia - Resolved, continued fluid administration Acute renal failure - Resolved, creatinine elevated above 2 on admission, urinalysis negative for infection Generalized weakness - Social service is following as well as physical and occupational therapy, patient likely will require rehabilitation Benign hypertension - blood pressure now stable Asthma Thrombocytopenia - Denies alcohol abuse, liver enzymes are within normal limits, check hepatitis screen PT OT SS for dc planning GI/DVT prophylaxis with protonix and Lovenox This plan of care was initiated in collaboration with the attending physician Dr. Rodriguez Please note Portions of this note utilized [employer] dictation software, please excuse any typographical or grammatical errors [facility] Associated attestation - Son Rodriguez MD - 11/14/2021 4:48 AM EDT I have personally seen and examined Carmen Gilman. I have personally reviewed all available clinical data related to this encounter including, but not limited to, radiolgraphs and reports, laboratory data, and procedure reports. I have been involved in formulation of the assessment and plan. DOS: 11/13/2021 HPI: came in c/o dizzyness , near syncopy, low bp. Positive for cocaine and THC. No fever. BP 70/40 ROS: Ten systems reviewed, unless limited by patient' or care providers' inability or unavailability. Reported above or following. Assessment and additional plans: Hypotension, check tft, cortisol RF positive needs further crowe MRSA nasal colonization ?DM Pancytopenia. Contact me if you need any clarification. Son Rodriguez MD Please note: Portions of this note utilized [employer] dictation software, please excuse any typographical or grammatical errors. Which inadvertently, might change the meaning and understanding. documented in this encounter [facility] 11-13-2021 Note Formatting of this n ote might be different from the original. notified Johnathan OLVERA that patient would like to speak with him Patient is unable to move legs appropriately, struggled feeding himself breakfast (Johnathan OLVERA notified) Call light within reach [facility] 11-13-2021 Note Formatting of this n ote might be different from the original. attempted to call daughter martin Gross voicemail box set up [facility] 11-13-2021 Nurse Surgical operation note 0000: patient admitted to room 3785 from ED. Patient oriented to room and call light. Assessment completed-see flowsheets, patient denies pain at this time. Patient's mother updated on patient condition and hospital admission via patient. Buprenorphine and lisinopril pill bottles noted in bag. Medications placed in lock box in patient room (1 full bottle and 1 empty bottle of buprenorphine, and 1 bottle with 7 lisinopril pills inside). 0400: prior assessment unchanged. [facility] 11-13-2021 Nurse Note 0000: patient admitted to room 3785 from ED. Patient oriented to room and call light. Assessment completed-see flowsheets, patient denies pain at this time. Patient's mother updated on patient condition and hospital admission via patient. Buprenorphine and lisinopril pill bottles noted in bag. Medications placed in lock box in patient room (1 full bottle and 1 empty bottle of buprenorphine, and 1 bottle with 7 lisinopril pills inside). 0400: prior assessment unchanged. documented in this encounter [facility] 11-13-2021 Note Formatting of this n ote might be different from the original. Problem: Patient Care Overview Goal: Plan of Care Review Outcome: Ongoing Goal: Individualization & Mutuality Outcome: Ongoing Goal: Discharge Needs Assessment Outcome: Ongoing Goal: Interdisciplinary Rounds/Family Conf Outcome: Ongoing [facility] 11-12-2021 Emergency department Note Room 3785 assigned [facility] 11-12-2021 Emergency department Note Room [address] Cantor speaking with Dr. Rodriguez at this time Emergency Department Report [facility] EMERGENCY DEPARTMENT Service Date:.11/12/21 PCP: Ani Worley Chief Complaint: Chief Complaint Patient presents with Dizziness Dizziness and abdominal pain since this morning. HPI Carmen Gilman is a 56 y.o. male presents to the ED today due to dizziness. Patient states his symptoms started this morning. He states he's been very dizzy and some diffuse abdominal pain. Patient was having difficulty inability secondary to dizziness. He called 911 for transfer to the hospital. Patient states he's had no change in his medication recently. He was last admitted to [facility] in September. Patient denies any fever cough congestion. Review of Systems: Review of Systems Constitutional: Negative for fever. Gastrointestinal: Positive for abdominal pain. Neurological: Positive for dizziness. Negative for syncope. Past Medical History: Past Medical History: Diagnosis Date Asthma Essential hypertension, benign Past Surgical History: Past Surgical History: Procedure Laterality Date APPENDECTOMY BACK SURGERY FOOT SURGERY Allergies: No Known Allergies Medications: Patient's Medications New Prescriptions No medications on file Previous Medications ALBUTEROL (2.5 MG/3ML) 0.083% INHALATION SOLUTION Take 3 mL by nebulization every 6 hours as needed. ALBUTEROL 108 (90 BASE) MCG/ACT AERO SOLN INHALER Inhale 1 puff every 6 hours as needed for Wheezing. ASPIRIN [address] TABLET Take 1 tablet by mouth daily. BUPRENORPHINE [address] 8 mg under tongue. CLONAZEPAM 0.5 MG TABLET Take 0.5 mg by mouth 2 times daily. COMBIVENT RESPIMAT 20-100 MCG/ACT AERO SOLN INHALER DICLOFENAC EC [address] TABLET Take 1 tablet by mouth 2 times daily for 10 days. DILTIAZEM 240 MG CAP SR 24HR CAPSULE XL Take 1 capsule by mouth daily. GABAPENTIN 800 MG TABLET Take 1 tablet by mouth 3 times daily. GLYCOPYRROLATE-FORMOTEROL (BEVESPI AEROSPHERE) 9-4.8 MCG/ACT AEROSOL Inhale 2 puffs 2 times daily. LISINOPRIL 20 MG TABLET Take 1 tablet by mouth daily. LISINOPRIL 40 MG TABLET Take 40 mg by mouth daily. PREDNISONE 10 MG TABLET TAKE 6 TABS BY MOUTH X 1 DAY & DECREASE BY ONE DAILY UNTIL GONE 6,5,4,3,2,1 Modified Medications No medications on file Discontinued Medications No medications on file Family History: Family History Problem Relation Age of Onset Heart Disease - Other Mother Diabetes Mother Heart Disease - Other Father Social History: Social History Socioeconomic History Marital status: Spouse name: Not on file Number of children: Not on file Years of education: Not on file Highest education level: Not on file Occupational History Employer: UNEMPLOYED Tobacco Use Smoking status: Former Smoker Types: Cigarettes Quit date: 2007 Years since quittin.2 Smokeless tobacco: Current User Types: Chew Substance and Sexual Activity Alcohol use: Not Currently Drug use: Not Currently Comment: Former Sexual activity: Not on file Other Topics Concern Not on file Social History Narrative Not on file Social Determinants of Health Financial Resource Strain: Not on file Food Insecurity: Not on file Transportation Needs: Not on file Physical Activity: Not on file Stress: Not on file Social Connections: Not on file Intimate Partner Violence: Not on file Housing Stability: Not on file Physical Exam: Physical Exam Vitals and nursing note reviewed. Constitutional: Appearance: Normal appearance. HENT: Head: Normocephalic and atraumatic. Mouth/Throat: Mouth: Mucous membranes are moist. Pharynx: Oropharynx is clear. Eyes: Conjunctiva/sclera: Conjunctivae normal. Cardiovascular: Rate and Rhythm: Normal rate and regular rhythm. Pulses: Normal pulses. Heart sounds: Normal heart sounds. Pulmonary: Effort: Pulmonary effort is normal. Breath sounds: Normal breath sounds. Abdominal: General: Bowel sounds are normal. Tenderness: There is abdominal tenderness. There is no guarding. Skin: General: Skin is warm. Capillary Refill: Capillary refill takes less than 2 seconds. Neurological: Mental Status: He is alert. Comments: Patient is alert and oriented to person place not time Vital Signs During ED Visit Patient Vitals for the past 24 hrs: BP Temp Temp src Pulse Resp SpO2 Height Weight 11/12/212229 93/50 -- -- 68 (!) 40 98 % -- -- 11/12/212219 89/50 -- -- 67 (!) 41 97 % -- -- 11/12/212214 96/52 -- -- 67 (!) 40 97 % -- -- 11/12/212209 84/50 -- -- 66 (!) 39 97 % -- -- 11/12/212204 89/52 -- -- 66 (!) 34 98 % -- -- 11/12/212199 85/53 -- -- 70 (!) 32 94 % -- -- 11/12/212154 100/55 -- -- 71 (!) 30 95 % -- -- 11/12/212153 99/56 -- -- 71 (!) 37 95 % -- -- 11/12/212151 97/54 -- -- 72 (!) 32 96 % -- -- 11/12/212149 105/58 -- -- 72 (!) 35 95 % -- -- 11/12/212144 129/69 -- -- 75 19 -- -- -- 11/12/212141 98/50 -- -- 79 18 -- -- -- 11/12/212138 128/78 -- -- 84 -- 94 % -- -- 11/12/212135 102/53 -- -- 69 20 98 % -- -- 11/12/212129 94/51 -- -- 68 15 99 % -- -- 11/12/212127 93/52 -- -- 67 14 100 % -- -- 11/12/212125 96/53 -- -- 68 14 99 % -- -- 11/12/212123 93/54 -- -- 69 13 100 % -- -- 11/12/212121 93/55 -- -- 68 13 100 % -- -- 11/12/212120 92/54 -- -- 65 14 100 % -- -- 11/12/212119 89/54 -- -- 69 14 100 % -- -- 11/12/212118 93/54 -- -- 67 13 100 % -- -- 11/12/212117 96/55 -- -- 68 13 100 % -- -- 11/12/212116 89/53 -- -- 68 14 100 % -- -- 11/12/212115 92/50 -- -- 68 14 100 % -- -- 11/12/212114 83/52 -- -- 69 12 100 % -- -- 11/12/212113 88/51 -- -- 70 14 100 % -- -- 11/12/212112 88/50 -- -- 70 13 100 % -- -- 11/12/212111 82/46 -- -- 72 13 99 % -- -- 11/12/212110 85/52 -- -- 71 12 100 % -- -- 11/12/212109 87/52 -- -- 71 13 100 % -- -- 11/12/212108 86/51 -- -- 71 12 100 % -- -- 11/12/212107 85/52 -- -- 69 13 100 % -- -- 11/12/212106 82/50 -- -- 69 13 100 % -- -- 11/12/212105 84/48 -- -- 68 13 100 % -- -- 11/12/212104 81/47 -- -- 69 13 100 % -- -- 11/12/212103 85/50 -- -- 69 13 100 % -- -- 11/12/212102 93/50 -- -- 70 12 100 % -- -- 11/12/212101 96/51 -- -- 76 13 100 % -- -- 11/12/212099 91/55 -- -- 71 12 100 % -- -- 11/12/212054 (!) 79/42 -- -- 69 13 99 % -- -- 11/12/212049 83/42 -- -- 70 14 100 % -- -- 11/12/212044 91/49 -- -- 72 13 100 % -- -- 11/12/212039 (!) 73/39 -- -- 71 14 100 % -- -- 11/12/212034 84/46 -- -- 73 14 100 % -- -- 11/12/212029 90/52 -- -- 74 14 100 % -- -- 11/12/212024 81/47 -- -- 72 14 100 % -- -- 11/12/212019 80/45 -- -- 72 16 100 % -- -- 11/12/212014 (!) 76/45 -- -- 71 15 99 % -- -- 11/12/212009 84/49 -- -- 70 16 100 % -- -- 11/12/212004 91/53 -- -- 72 20 99 % -- -- 11/12/211999 83/44 -- -- 70 18 98 % -- -- 11/12/211954 (!) 78/41 -- -- 71 14 97 % -- -- 11/12/211949 (!) 75/38 -- -- 70 15 97 % -- -- 11/12/211944 (!) 72/36 -- -- 69 15 95 % -- -- 11/12/211939 (!) 70/35 -- -- 71 20 95 % -- -- 11/12/211934 (!) 77/42 -- -- 73 21 93 % -- -- 11/12/211929 (!) 76/42 -- -- 75 23 91 % -- -- 11/12/211924 (!) 70/41 -- -- 75 -- 93 % -- -- 11/12/211919 (!) 72/40 -- -- 76 -- 95 % -- -- 11/12/211916 (!) 71/38 -- -- 79 -- 91 % -- -- 11/12/211913 (!) 71/40 -- -- 81 -- 94 % -- -- 11/12/211908 (!) 70/39 -- -- 81 -- (!) 88 % -- -- 11/12/211906 (!) 71/36 98.3 F (36.8 C) Oral 78 18 (!) 86 % -- -- 11/12/211900 -- -- -- -- -- -- 1.829 m (6') 122.9 kg (271 lb) Orders/Results: Orders Placed This Encounter [facility] - NASOPHARYNGEAL XR CHEST AP PORTABLE CT ABDOMEN/PELVIS WITHOUT CONTRAST PROTIME-INR PTT MAGNESIUM LACTATE, BLOOD LIPASE ALCOHOL (ETHANOL),BLOOD CBC, EDIF, PLATELET COMPREHENSIVE METABOLIC PANEL Troponin I, High sensitivity TOXICOLOGY DRUG SCREEN, URINE ECG sodium chloride 0.9% IV solution 1,000 mL sodium chloride 0.9% IV solution 1,000 mL naloxone (NARCAN) injection 0.4 mg sodium chloride 0.9% IV solution 1,000 mL norepinephrine in dextrose 5% (LEVOPHED) 8-5 MG/250ML-% premade IV infusion albumin human 25 % injection 50 g sodium chloride 0.9% IV solution URINALYSIS, MACRO URINE MICROSCOPIC Results for orders placed or performed during the hospital encounter of 11/12/21 [facility] - NASOPHARYNGEAL Specimen: NASOPHARYNGEAL; Fluid/Swab Result Value Ref Range SARS COV 2 RNA, QL REAL TIME RT PCR NOT DETECTED NOT DETECTED NARRATIVE -1 This test was performed using isothermal HERMAN and has been approved as Emergency Use Authorization (EUA) for the qualitative detection [id number] nucleic acid. PROTIME-INR Result Value Ref Range PT 14.5 (H) 11.8 - 14.4 SEC INR 1.11 (H) 0.85 - 1.10 PTT Result Value Ref Range PTT 31.9 22.4 - 34.7 SEC MAGNESIUM Result Value Ref Range MAGNESIUM 2.0 1.6 - 2.3 MG/DL LACTATE, BLOOD Result Value Ref Range LACTATE 1.7 0.7 - 2.0 mmol/L LIPASE Result Value Ref Range LIPASE 56 23 - 300 U/L ALCOHOL (ETHANOL),BLOOD Result Value Ref Range ALCOHOL, ETHYL, SERUM <5 0 - 10 MG/DL CBC, EDIF, PLATELET Result Value Ref Range WBC (WHITE BLOOD COUNT) 6.5 3.6 - 11.0 10*3/uL RBC 4.95 4.0 - 6.1 10*6/uL HEMOGLOBIN (HGB) 11.0 (L) 14.0 - 18.0 G/DL HEMATOCRIT (HCT) 34.1 (L) 42.0 - 52.0 % MEAN CELL VOLUME 68.9 (L) 80.0 - 100.0 FL Mean Cell HGB 22.2 (L) 26.0 - 35.0 PG MEAN CELL HGB CONCENTRATION 32.3 27.0 - 37.0 G/DL RBC DISTRIBUTION 16.0 (H) 11.5 - 14.5 % PLATELET COUNT 146 130.0 - 400.0 10*3/uL MEAN PLATELET VOLUME 7.8 7.4 - 11.0 FL DIFFERENTIAL TYPE AUTO DIFF % NEUTROPHILS 68.5 37.0 - 75.0 % LYMPHOCYTE 16.4 (L) 20.0 - 55.0 % MONOCYTE % 13.1 (H) 0.0 - 10.0 % EOSINOPHIL % 1.5 0.0 - 11.0 % BASOPHIL % 0.5 0.0 - 2.0 % Absolute Neutrophil Count 4.4 1.4 - 6.5 10*3/uL LYMPHOCYTES, ABSOLUTE 1.10 (L) 1.2 - 3.4 10*3/uL MONOCYTES, ABSOLUTE 0.8 (H) 0.0 - 0.7 10*3/uL ABSOLUTE EOSINOPHIL COUNT 0.10 0.0 - 0.7 10*3/uL ABSOLUTE BASOPHIL COUNT 0.0 0.0 - 0.2 10*3/uL COMPREHENSIVE METABOLIC PANEL Result Value Ref Range GLUCOSE 133 (H) 70 - 100 MG/DL BUN 40 (H) 7 - 20 MG/DL CREATININE SERUM 2.54 (H) 0.66 - 1.25 MG/DL SODIUM 131 (L) 136 - 145 MMOL/L POTASSIUM 4.2 3.5 - 5.1 MMOL/L CHLORIDE 98 98 - 107 MMOL/L CALCIUM 8.4 8.4 - 10.2 MG/DL PROTEIN, TOTAL 7.0 6.3 - 8.2 GM/DL ALBUMIN 3.3 (L) 3.5 - 5.0 G/dl BILIRUBIN, TOTAL 0.9 0.2 - 1.2 MG/DL AST 32 15 - 41 IU/L ALKALINE PHOSPHATASE 46 38 - 126 IU/L CARBON DIOXIDE (CO2) 24 22 - 30 MMOL/L A/G Ratio 0.9 (L) 1.3 - 2.2 RATIO ALT 32 17 - 63 IU/L ESTIMATED GFR, NON AMER 28 ml/min/1.73sq.m ESTIMATED GFR, 34 ml/min/1.73sq.m GFR COMMENT Average GFR for 50-59 years old = 93. TROPONIN I, HIGH SENSITIVITY Result Value Ref Range TROPONIN I, HIGH SENSITIVITY 4 0 - 20 pg/mL TOXICOLOGY DRUG SCREEN, URINE Result Value Ref Range CANNABINOIDS (MARIJUANA) POSITIVE (A) NEGATIVE NG/ML PHENCYCLIDINE NEGATIVE NEGATIVE NG/ML Cocaine Metabolite POSITIVE (A) NEGATIVE NG/ML Methamphetamine NEGATIVE NEGATIVE NG/ML Opiates NEGATIVE NEGATIVE NG/ML Amphetamine NEGATIVE NEGATIVE NG/ML BENZODIAZEPINES NEGATIVE NEGATIVE NG/ML TRICYCLIC ANTIDEPRESSANTS SCREEN, URINE NEGATIVE NEGATIVE NG/ML Methadone NEGATIVE NEGATIVE NG/ML Barbiturate NEGATIVE NEGATIVE NG/ML Oxycodone NEGATIVE NEGATIVE NG/ML PROPOXYPHENE NEGATIVE NEGATIVE NG/ML Buprenorphine POSITIVE (A) NEGATIVE NG/ML URINALYSIS, MACRO Result Value Ref Range COLOR, URINE YELLOW YELLOW APPEARANCE, URINE CLEAR CLEAR Specific Etters, Urine 1.020 1.010 - 1.025 PH URINE 5.5 5.0 - 7.0 PROTEIN, URINE 100 (A) NEGATIVE mg/dl GLUCOSE, URINE NEGATIVE NEGATIVE mg/dl KETONES, URINE 15 (A) NEGATIVE mg/dl BILIRUBIN, URINE MODERATE (A) NEGATIVE BLOOD, URINE DIPSTICK NEGATIVE NEGATIVE NITRITES, URINE NEGATIVE NEGATIVE UROBILINOGEN, URINE 1.0 0.2 - 1.0 E.U./dL LEUKOCYTE ESTERASE, URINE NEGATIVE NEGATIVE URINE MICROSCOPIC Result Value Ref Range WBC, URINE NEGATIVE NEGATIVE /HPF RBC, URINE NEGATIVE NEGATIVE /HPF Epithelial Cells UA 1 TO 5 /HPF Mucus TRACE (A) NEGATIVE BACTERIA, URINE NEGATIVE NEGATIVE CRYSTALS, URINE NONE NONE CASTS, URINE RARE (A) NONE /LPF COMMENT, URINE CULTURE CRITERIA NOT MET, NO CULTURE PERFORMED. Radiographic Imaging CT ABDOMEN/PELVIS WITHOUT CONTRAST Final Result IMPRESSION: 1. Questionable peripancreatic mesenteric edema. Comparison with patient's laboratory values is recommended to evaluate for pancreatitis. XR CHEST AP PORTABLE Final Result IMPRESSION: No acute infiltrate or evidence of cardiac decompensation. When compared with the prior study, the lungs are now clear. Procedures: Procedures Moderate Sedation Procedure: No ED Summary/MDM EKG sinus rhythm rate 78. A 152 QRS 82 QTc 440 interpret by myself. Patient presents with dizziness and dehydration. He was fluid resuscitated in the ER 3 L normal saline was given. A Tavera catheter was placed 500 mL of urine output during his ER stay. He had persistent low blood pressure was started on a levophed drip. Patient had a normal lactic acid, CBC and is afebrile no signs of infection. I spoke with the ICU physician Dr. Rodriguez, he would like 50 g of albumin continue to monitor his urine output. We'll admit him to the ICU due to the hypotension. Serial H&H's repeat labs in the a.m. MDM Number of Diagnoses or Management Options Amount and/or Complexity of Data Reviewed Clinical lab tests: ordered and reviewed Tests in the radiology section of CPT : reviewed and ordered Review and summarize past medical records: yes Independent visualization of images, tracings, or specimens: yes Clinical Impression: 1. MARLENE (acute kidney injury) 2. Dehydration 3. Hypotension, unspecified hypotension type No follow-ups on file. New Prescriptions No medications on file Discontinued Medications No medications on file An After Visit Summary was printed and given to the patient with above information. . . Nuno Cantor MD 11/12/21 6275 Bed: E006 Expected date: Expected time: Means of arrival: Comments: EMS documented in this encounter [facility] 03-24-[address] Cantor speaking with Dr. Rodriguez at this time [facility] 11-12-2021 Physician Emergency department Note Emergency Department Report [facility] EMERGENCY DEPARTMENT Service Date:.11/12/21 PCP: Ani Worley Chief Complaint: Chief Complaint Patient presents with Dizziness Dizziness and abdominal pain since this morning. HPI Carmen Gilman is a 56 y.o. male presents to the ED today due to dizziness. Patient states his symptoms started this morning. He states he's been very dizzy and some diffuse abdominal pain. Patient was having difficulty inability secondary to dizziness. He called 911 for transfer to the hospital. Patient states he's had no change in his medication recently. He was last admitted to [facility] in September. Patient denies any fever cough congestion. Review of Systems: Review of Systems Constitutional: Negative for fever. Gastrointestinal: Positive for abdominal pain. Neurological: Positive for dizziness. Negative for syncope. Past Medical History: Past Medical History: Diagnosis Date Asthma Essential hypertension, benign Past Surgical History: Past Surgical History: Procedure Laterality Date APPENDECTOMY BACK SURGERY FOOT SURGERY Allergies: No Known Allergies Medications: Patient's Medications New Prescriptions No medications on file Previous Medications ALBUTEROL (2.5 MG/3ML) 0.083% INHALATION SOLUTION Take 3 mL by nebulization every 6 hours as needed. ALBUTEROL 108 (90 BASE) MCG/ACT AERO SOLN INHALER Inhale 1 puff every 6 hours as needed for Wheezing. ASPIRIN [address] TABLET Take 1 tablet by mouth daily. BUPRENORPHINE [address] 8 mg under tongue. CLONAZEPAM 0.5 MG TABLET Take 0.5 mg by mouth 2 times daily. COMBIVENT RESPIMAT 20-100 MCG/ACT AERO SOLN INHALER DICLOFENAC EC [address] TABLET Take 1 tablet by mouth 2 times daily for 10 days. DILTIAZEM 240 MG CAP SR 24HR CAPSULE XL Take 1 capsule by mouth daily. GABAPENTIN 800 MG TABLET Take 1 tablet by mouth 3 times daily. GLYCOPYRROLATE-FORMOTEROL (BEVESPI AEROSPHERE) 9-4.8 MCG/ACT AEROSOL Inhale 2 puffs 2 times daily. LISINOPRIL 20 MG TABLET Take 1 tablet by mouth daily. LISINOPRIL 40 MG TABLET Take 40 mg by mouth daily. PREDNISONE 10 MG TABLET TAKE 6 TABS BY MOUTH X 1 DAY & DECREASE BY ONE DAILY UNTIL GONE 6,5,4,3,2,1 Modified Medications No medications on file Discontinued Medications No medications on file Family History: Family History Problem Relation Age of Onset Heart Disease - Other Mother Diabetes Mother Heart Disease - Other Father Social History: Social History Socioeconomic History Marital status: Spouse name: Not on file Number of children: Not on file Years of education: Not on file Highest education level: Not on file Occupational History Employer: UNEMPLOYED Tobacco Use Smoking status: Former Smoker Types: Cigarettes Quit date: 2007 Years since quittin.2 Smokeless tobacco: Current User Types: Chew Substance and Sexual Activity Alcohol use: Not Currently Drug use: Not Currently Comment: Former Sexual activity: Not on file Other Topics Concern Not on file Social History Narrative Not on file Social Determinants of Health Financial Resource Strain: Not on file Food Insecurity: Not on file Transportation Needs: Not on file Physical Activity: Not on file Stress: Not on file Social Connections: Not on file Intimate Partner Violence: Not on file Housing Stability: Not on file Physical Exam: Physical Exam Vitals and nursing note reviewed. Constitutional: Appearance: Normal appearance. HENT: Head: Normocephalic and atraumatic. Mouth/Throat: Mouth: Mucous membranes are moist. Pharynx: Oropharynx is clear. Eyes: Conjunctiva/sclera: Conjunctivae normal. Cardiovascular: Rate and Rhythm: Normal rate and regular rhythm. Pulses: Normal pulses. Heart sounds: Normal heart sounds. Pulmonary: Effort: Pulmonary effort is normal. Breath sounds: Normal breath sounds. Abdominal: General: Bowel sounds are normal. Tenderness: There is abdominal tenderness. There is no guarding. Skin: General: Skin is warm. Capillary Refill: Capillary refill takes less than 2 seconds. Neurological: Mental Status: He is alert. Comments: Patient is alert and oriented to person place not time Vital Signs During ED Visit Patient Vitals for the past 24 hrs: BP Temp Temp src Pulse Resp SpO2 Height Weight 11/12/21 2230 93/50 -- -- 68 (!) 40 98 % -- -- 11/12/21 2220 89/50 -- -- 67 (!) 41 97 % -- -- 11/12/212214 96/52 -- -- 67 (!) 40 97 % -- -- 11/12/212209 84/50 -- -- 66 (!) 39 97 % -- -- 11/12/212204 89/52 -- -- 66 (!) 34 98 % -- -- 11/12/212199 85/53 -- -- 70 (!) 32 94 % -- -- 11/12/212154 100/55 -- -- 71 (!) 30 95 % -- -- 11/12/212153 99/56 -- -- 71 (!) 37 95 % -- -- 11/12/212151 97/54 -- -- 72 (!) 32 96 % -- -- 11/12/212149 105/58 -- -- 72 (!) 35 95 % -- -- 11/12/212144 129/69 -- -- 75 19 -- -- -- 11/12/212141 98/50 -- -- 79 18 -- -- -- 11/12/212138 128/78 -- -- 84 -- 94 % -- -- 11/12/212135 102/53 -- -- 69 20 98 % -- -- 11/12/212129 94/51 -- -- 68 15 99 % -- -- 11/12/212127 93/52 -- -- 67 14 100 % -- -- 11/12/212125 96/53 -- -- 68 14 99 % -- -- 11/12/212123 93/54 -- -- 69 13 100 % -- -- 11/12/212121 93/55 -- -- 68 13 100 % -- -- 11/12/212120 92/54 -- -- 65 14 100 % -- -- 11/12/212119 89/54 -- -- 69 14 100 % -- -- 11/12/212118 93/54 -- -- 67 13 100 % -- -- 11/12/212117 96/55 -- -- 68 13 100 % -- -- 11/12/212116 89/53 -- -- 68 14 100 % -- -- 11/12/212115 92/50 -- -- 68 14 100 % -- -- 11/12/212114 83/52 -- -- 69 12 100 % -- -- 11/12/212113 88/51 -- -- 70 14 100 % -- -- 11/12/212112 88/50 -- -- 70 13 100 % -- -- 11/12/212111 82/46 -- -- 72 13 99 % -- -- 11/12/212110 85/52 -- -- 71 12 100 % -- -- 11/12/212109 87/52 -- -- 71 13 100 % -- -- 11/12/212108 86/51 -- -- 71 12 100 % -- -- 11/12/212107 85/52 -- -- 69 13 100 % -- -- 11/12/212106 82/50 -- -- 69 13 100 % -- -- 11/12/212105 84/48 -- -- 68 13 100 % -- -- 11/12/212104 81/47 -- -- 69 13 100 % -- -- 11/12/212103 85/50 -- -- 69 13 100 % -- -- 11/12/212102 93/50 -- -- 70 12 100 % -- -- 11/12/212101 96/51 -- -- 76 13 100 % -- -- 11/12/212099 91/55 -- -- 71 12 100 % -- -- 11/12/212054 (!) 79/42 -- -- 69 13 99 % -- -- 11/12/212049 83/42 -- -- 70 14 100 % -- -- 11/12/212044 91/49 -- -- 72 13 100 % -- -- 11/12/212039 (!) 73/39 -- -- 71 14 100 % -- -- 11/12/212034 84/46 -- -- 73 14 100 % -- -- 11/12/212029 90/52 -- -- 74 14 100 % -- -- 11/12/212024 81/47 -- -- 72 14 100 % -- -- 11/12/212019 80/45 -- -- 72 16 100 % -- -- 11/12/212014 (!) 76/45 -- -- 71 15 99 % -- -- 11/12/212009 84/49 -- -- 70 16 100 % -- -- 11/12/212004 91/53 -- -- 72 20 99 % -- -- 11/12/211999 83/44 -- -- 70 18 98 % -- -- 11/12/211954 (!) 78/41 -- -- 71 14 97 % -- -- 11/12/211949 (!) 75/38 -- -- 70 15 97 % -- -- 11/12/211944 (!) 72/36 -- -- 69 15 95 % -- -- 11/12/211939 (!) 70/35 -- -- 71 20 95 % -- -- 11/12/211934 (!) 77/42 -- -- 73 21 93 % -- -- 11/12/211929 (!) 76/42 -- -- 75 23 91 % -- -- 11/12/211924 (!) 70/41 -- -- 75 -- 93 % -- -- 11/12/211919 (!) 72/40 -- -- 76 -- 95 % -- -- 11/12/211916 (!) 71/38 -- -- 79 -- 91 % -- -- 11/12/211913 (!) 71/40 -- -- 81 -- 94 % -- -- 11/12/211908 (!) 70/39 -- -- 81 -- (!) 88 % -- -- 11/12/211906 (!) 71/36 98.3 F (36.8 C) Oral 78 18 (!) 86 % -- -- 11/12/211900 -- -- -- -- -- -- 1.829 m (6') 122.9 kg (271 lb) Orders/Results: Orders Placed This Encounter [facility] - NASOPHARYNGEAL XR CHEST AP PORTABLE CT ABDOMEN/PELVIS WITHOUT CONTRAST PROTIME-INR PTT MAGNESIUM LACTATE, BLOOD LIPASE ALCOHOL (ETHANOL),BLOOD CBC, EDIF, PLATELET COMPREHENSIVE METABOLIC PANEL Troponin I, High sensitivity TOXICOLOGY DRUG SCREEN, URINE ECG sodium chloride 0.9% IV solution 1,000 mL sodium chloride 0.9% IV solution 1,000 mL naloxone (NARCAN) injection 0.4 mg sodium chloride 0.9% IV solution 1,000 mL norepinephrine in dextrose 5% (LEVOPHED) 8-5 MG/250ML-% premade IV infusion albumin human 25 % injection 50 g sodium chloride 0.9% IV solution URINALYSIS, MACRO URINE MICROSCOPIC Results for orders placed or performed during the hospital encounter of 11/12/21 [facility] - NASOPHARYNGEAL Specimen: NASOPHARYNGEAL; Fluid/Swab Result Value Ref Range SARS COV 2 RNA, QL REAL TIME RT PCR NOT DETECTED NOT DETECTED NARRATIVE -1 This test was performed using isothermal HERMAN and has been approved as Emergency Use Authorization (EUA) for the qualitative detection [id number] nucleic acid. PROTIME-INR Result Value Ref Range PT 14.5 (H) 11.8 - 14.4 SEC INR 1.11 (H) 0.85 - 1.10 PTT Result Value Ref Range PTT 31.9 22.4 - 34.7 SEC MAGNESIUM Result Value Ref Range MAGNESIUM 2.0 1.6 - 2.3 MG/DL LACTATE, BLOOD Result Value Ref Range LACTATE 1.7 0.7 - 2.0 mmol/L LIPASE Result Value Ref Range LIPASE 56 23 - 300 U/L ALCOHOL (ETHANOL),BLOOD Result Value Ref Range ALCOHOL, ETHYL, SERUM <5 0 - 10 MG/DL CBC, EDIF, PLATELET Result Value Ref Range WBC (WHITE BLOOD COUNT) 6.5 3.6 - 11.0 10*3/uL RBC 4.95 4.0 - 6.1 10*6/uL HEMOGLOBIN (HGB) 11.0 (L) 14.0 - 18.0 G/DL HEMATOCRIT (HCT) 34.1 (L) 42.0 - 52.0 % MEAN CELL VOLUME 68.9 (L) 80.0 - 100.0 FL Mean Cell HGB 22.2 (L) 26.0 - 35.0 PG MEAN CELL HGB CONCENTRATION 32.3 27.0 - 37.0 G/DL RBC DISTRIBUTION 16.0 (H) 11.5 - 14.5 % PLATELET COUNT 146 130.0 - 400.0 10*3/uL MEAN PLATELET VOLUME 7.8 7.4 - 11.0 FL DIFFERENTIAL TYPE AUTO DIFF % NEUTROPHILS 68.5 37.0 - 75.0 % LYMPHOCYTE 16.4 (L) 20.0 - 55.0 % MONOCYTE % 13.1 (H) 0.0 - 10.0 % EOSINOPHIL % 1.5 0.0 - 11.0 % BASOPHIL % 0.5 0.0 - 2.0 % Absolute Neutrophil Count 4.4 1.4 - 6.5 10*3/uL LYMPHOCYTES, ABSOLUTE 1.10 (L) 1.2 - 3.4 10*3/uL MONOCYTES, ABSOLUTE 0.8 (H) 0.0 - 0.7 10*3/uL ABSOLUTE EOSINOPHIL COUNT 0.10 0.0 - 0.7 10*3/uL ABSOLUTE BASOPHIL COUNT 0.0 0.0 - 0.2 10*3/uL COMPREHENSIVE METABOLIC PANEL Result Value Ref Range GLUCOSE 133 (H) 70 - 100 MG/DL BUN 40 (H) 7 - 20 MG/DL CREATININE SERUM 2.54 (H) 0.66 - 1.25 MG/DL SODIUM 131 (L) 136 - 145 MMOL/L POTASSIUM 4.2 3.5 - 5.1 MMOL/L CHLORIDE 98 98 - 107 MMOL/L CALCIUM 8.4 8.4 - 10.2 MG/DL PROTEIN, TOTAL 7.0 6.3 - 8.2 GM/DL ALBUMIN 3.3 (L) 3.5 - 5.0 G/dl BILIRUBIN, TOTAL 0.9 0.2 - 1.2 MG/DL AST 32 15 - 41 IU/L ALKALINE PHOSPHATASE 46 38 - 126 IU/L CARBON DIOXIDE (CO2) 24 22 - 30 MMOL/L A/G Ratio 0.9 (L) 1.3 - 2.2 RATIO ALT 32 17 - 63 IU/L ESTIMATED GFR, NON AMER 28 ml/min/1.73sq.m ESTIMATED GFR, 34 ml/min/1.73sq.m GFR COMMENT Average GFR for 50-59 years old = 93. TROPONIN I, HIGH SENSITIVITY Result Value Ref Range TROPONIN I, HIGH SENSITIVITY 4 0 - 20 pg/mL TOXICOLOGY DRUG SCREEN, URINE Result Value Ref Range CANNABINOIDS (MARIJUANA) POSITIVE (A) NEGATIVE NG/ML PHENCYCLIDINE NEGATIVE NEGATIVE NG/ML Cocaine Metabolite POSITIVE (A) NEGATIVE NG/ML Methamphetamine NEGATIVE NEGATIVE NG/ML Opiates NEGATIVE NEGATIVE NG/ML Amphetamine NEGATIVE NEGATIVE NG/ML BENZODIAZEPINES NEGATIVE NEGATIVE NG/ML TRICYCLIC ANTIDEPRESSANTS SCREEN, URINE NEGATIVE NEGATIVE NG/ML Methadone NEGATIVE NEGATIVE NG/ML Barbiturate NEGATIVE NEGATIVE NG/ML Oxycodone NEGATIVE NEGATIVE NG/ML PROPOXYPHENE NEGATIVE NEGATIVE NG/ML Buprenorphine POSITIVE (A) NEGATIVE NG/ML URINALYSIS, MACRO Result Value Ref Range COLOR, URINE YELLOW YELLOW APPEARANCE, URINE CLEAR CLEAR Specific Etters, Urine 1.020 1.010 - 1.025 PH URINE 5.5 5.0 - 7.0 PROTEIN, URINE 100 (A) NEGATIVE mg/dl GLUCOSE, URINE NEGATIVE NEGATIVE mg/dl KETONES, URINE 15 (A) NEGATIVE mg/dl BILIRUBIN, URINE MODERATE (A) NEGATIVE BLOOD, URINE DIPSTICK NEGATIVE NEGATIVE NITRITES, URINE NEGATIVE NEGATIVE UROBILINOGEN, URINE 1.0 0.2 - 1.0 E.U./dL LEUKOCYTE ESTERASE, URINE NEGATIVE NEGATIVE URINE MICROSCOPIC Result Value Ref Range WBC, URINE NEGATIVE NEGATIVE /HPF RBC, URINE NEGATIVE NEGATIVE /HPF Epithelial Cells UA 1 TO 5 /HPF Mucus TRACE (A) NEGATIVE BACTERIA, URINE NEGATIVE NEGATIVE CRYSTALS, URINE NONE NONE CASTS, URINE RARE (A) NONE /LPF COMMENT, URINE CULTURE CRITERIA NOT MET, NO CULTURE PERFORMED. Radiographic Imaging CT ABDOMEN/PELVIS WITHOUT CONTRAST Final Result IMPRESSION: 1. Questionable peripancreatic mesenteric edema. Comparison with patient's laboratory values is recommended to evaluate for pancreatitis. XR CHEST AP PORTABLE Final Result IMPRESSION: No acute infiltrate or evidence of cardiac decompensation. When compared with the prior study, the lungs are now clear. Procedures: Procedures Moderate Sedation Procedure: No ED Summary/MDM EKG sinus rhythm rate 78. A 152 QRS 82 QTc 440 interpret by myself. Patient presents with dizziness and dehydration. He was fluid resuscitated in the ER 3 L normal saline was given. A Tavera catheter was placed 500 mL of urine output during his ER stay. He had persistent low blood pressure was started on a levophed drip. Patient had a normal lactic acid, CBC and is afebrile no signs of infection. I spoke with the ICU physician Dr. Rodriguez, he would like 50 g of albumin continue to monitor his urine output. We'll admit him to the ICU due to the hypotension. Serial H&H's repeat labs in the a.m. MDM Number of Diagnoses or Management Options Amount and/or Complexity of Data Reviewed Clinical lab tests: ordered and reviewed Tests in the radiology section of CPT : reviewed and ordered Review and summarize past medical records: yes Independent visualization of images, tracings, or specimens: yes Clinical Impression: 1. MARLENE (acute kidney injury) 2. Dehydration 3. Hypotension, unspecified hypotension type No follow-ups on file. New Prescriptions No medications on file Discontinued Medications No medications on file An After Visit Summary was printed and given to the patient with above information. . . Nuno Cantor MD 11/12/21 2124 [facility] Work Phone: 11-12-2021 Emergency department Note Bed: E006 Expected date: Expected time: Means of arrival: Comments: EMS [facility] 10-07-2021 Emergency department Note Patient left AMA. Pt placed call light on and asked this nurse to place his left arm back in the sling the patient had arrived with; This did so and then pt asked to have side rail lowered; This nurse instructed pt he was not to get up without assistance due to his drowsiness and inability to keep eyes open; Pt states understanding but still demands to have side rail lowered; This nurse lowered side rail and again instructed pt to stay in the bed; Pt states he needs a ride home; This nurse informed pt that the hospital does not provide transportation and he needed to be working on finding a ride home; Pt states he will just catch the bus so he needs to get going; MAY Baker notified Patient stated,'I'm a client at [facility]" . He admitted that he is not employed there but wants all bills sent there. I explained to him that he would need to contact them and submit his bills accordingly. Patient has slurred speech and unable to keep his eyes open during this conversation. He did inform me that he does have an open Workers Comp number for another injury and I educated him that we could not submit any bills from this hospital visit as that is a separate injury and against the law. Dr. Brar's office contacted at this time. Emergency Department Report [facility] EMERGENCY DEPARTMENT Service Date:.10/07/21 PCP: Ani Worley Chief Complaint: Chief Complaint Patient presents with Fall pt c/o "whole" LEFT side pain after trip and fall last night. pt requesting BWC at this time. HPI Carmen Gilman is a 56 y.o. male presents to the ED today due to Fall. Patient resents emergency department with pain after a fall. Patient states that he fell stones yesterday evening. He fell onto his left side and has pain in his left shoulder, ribs, and knee. Of note, the patient appears highly under the influence of substances. His speech is severely slurred and eyes are barely open. Patient initially states he would like to file BWC based on the injury. Patient was unable to file the paperwork as he could not Read or write due to his condition. It was later confirmed at the patient does not work at [employer]. 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 Patient states that he would like to bill for his injuries. Patient then also states he has another open C case and he would like today's injuries filed under that. Nonetheless, the patient fell and has pain. He appears severely under the influence and his behavior is concerning. Patient did not drive to the ER today. Review of Systems: Review of Systems Unable to perform ROS: Other Past Medical History: Past Medical History: Diagnosis Date Asthma Essential hypertension, benign Past Surgical History: Past Surgical History: Procedure Laterality Date APPENDECTOMY BACK SURGERY FOOT SURGERY Allergies: No Known Allergies Medications: Patient's Medications New Prescriptions No medications on file Previous Medications ALBUTEROL (2.5 MG/3ML) 0.083% INHALATION SOLUTION Take 3 mL by nebulization every 6 hours as needed. ALBUTEROL 108 (90 BASE) MCG/ACT AERO SOLN INHALER Inhale 1 puff every 6 hours as needed for Wheezing. ASPIRIN [address] TABLET Take 1 tablet by mouth daily. BUPRENORPHINE [address] 8 mg under tongue. CLONAZEPAM 0.5 MG TABLET Take 0.5 mg by mouth 2 times daily. COMBIVENT RESPIMAT 20-100 MCG/ACT AERO SOLN INHALER DICLOFENAC EC [address] TABLET Take 1 tablet by mouth 2 times daily for 10 days. DILTIAZEM 240 MG CAP SR 24HR CAPSULE XL Take 1 capsule by mouth daily. GABAPENTIN 800 MG TABLET Take 1 tablet by mouth 3 times daily. GLYCOPYRROLATE-FORMOTEROL (BEVESPI AEROSPHERE) 9-4.8 MCG/ACT AEROSOL Inhale 2 puffs 2 times daily. LISINOPRIL 20 MG TABLET Take 1 tablet by mouth daily. LISINOPRIL 40 MG TABLET Take 40 mg by mouth daily. PREDNISONE 10 MG TABLET TAKE 6 TABS BY MOUTH X 1 DAY & DECREASE BY ONE DAILY UNTIL GONE 6,5,4,3,2,1 Modified Medications No medications on file Discontinued Medications No medications on file Family History: Family History Problem Relation Age of Onset Heart Disease - Other Mother Diabetes Mother Heart Disease - Other Father Social History: Social History Socioeconomic History Marital status: Spouse name: Not on file Number of children: Not on file Years of education: Not on file Highest education level: Not on file Occupational History Employer: UNEMPLOYED Tobacco Use Smoking status: Former Smoker Types: Cigarettes Quit date: 2007 Years since quittin.1 Smokeless tobacco: Current User Types: Chew Substance and Sexual Activity Alcohol use: Not Currently Drug use: Not Currently Sexual activity: Not on file Other Topics Concern Not on file Social History Narrative Not on file Social Determinants of Health Financial Resource Strain: Not on file Food Insecurity: Not on file Transportation Needs: Not on file Physical Activity: Not on file Stress: Not on file Social Connections: Not on file Intimate Partner Violence: Not on file Housing Stability: Not on file Physical Exam: Physical Exam Vitals and nursing note reviewed. Constitutional: General: He is not in acute distress. Appearance: He is obese. He is not ill-appearing. Interventions: Face mask in place. Comments: Patient is wearing a sling on his left arm. HENT: Head: Normocephalic and atraumatic. Right Ear: External ear normal. Left Ear: External ear normal. Nose: Nose normal. Mouth/Throat: Dentition: Dental caries present. Eyes: Conjunctiva/sclera: Conjunctivae normal. Pupils: Pupils are equal, round, and reactive to light. Pulmonary: Effort: Pulmonary effort is normal. Musculoskeletal: General: Normal range of motion. Cervical back: Normal range of motion and neck supple. Skin: General: Skin is warm and dry. Neurological: Mental Status: He is alert and oriented to person, place, and time. Psychiatric: Behavior: Behavior is slowed. Cognition and Memory: Cognition is impaired. Memory is impaired. Judgment: Judgment normal. Vital Signs During ED Visit Patient Vitals for the past 24 hrs: BP Temp Temp src Pulse Resp SpO2 Weight 10/07/21 1219 136.1 kg (300 lb) 10/07/21 1218 154/72 98.7 F (37.1 C) Oral 93 24 95 % Orders/Results: Orders Placed This Encounter XR SHOULDER LEFT MIN 2 VIEWS XR RIBS LEFT XR KNEE LEFT 3 VIEWS Results for orders placed or performed in visit on 02/07/18 CBC, EDIF, PLATELET Result Value Ref Range WBC (WHITE BLOOD COUNT) 4.0 3.6 - 11.0 /cmm RBC 4.99 4.0 - 6.1 /cmm HEMOGLOBIN (HGB) 11.3 (L) 14.0 - 18.0 G/DL HEMATOCRIT (HCT) 35.6 (L) 42.0 - 52.0 % MEAN CELL VOLUME 71.3 (L) 80.0 - 100.0 FL Mean Cell HGB 22.7 (L) 26.0 - 35.0 PG MEAN CELL HGB CONCENTRATION 31.9 27.0 - 37.0 G/DL RBC DISTRIBUTION 15.4 (H) 11.5 - 14.5 % PLATELET COUNT 123 (L) 130.0 - 400.0 /cmm MEAN PLATELET VOLUME 6.8 (L) 7.4 - 11.0 FL DIFFERENTIAL TYPE AUTO DIFF % NEUTROPHILS 63.3 37.0 - 75.0 % LYMPHOCYTE 27.0 20.0 - 55.0 % MONOCYTE % 8.6 0.0 - 10.0 % EOSINOPHIL % 0.9 0.0 - 11.0 % BASOPHIL % 0.2 0.0 - 2.0 % Absolute Neutrophil Count 2.5 1.0 - 7.0 x10 LYMPHOCYTES, ABSOLUTE 1.10 X10 MONOCYTES, ABSOLUTE 0.3 X10 ABSOLUTE EOSINOPHIL COUNT 0.00 X10 ABSOLUTE BASOPHIL COUNT 0.0 X10 COMPREHENSIVE METABOLIC PANEL Result Value Ref Range GLUCOSE 116 (H) 70 - 100 MG/DL BUN 19 7 - 20 MG/DL CREATININE SERUM 0.7 0.66 - 1.25 MG/DL SODIUM 134 (L) 136 - 145 MMOL/L POTASSIUM 3.9 3.5 - 5.1 MMOL/L CHLORIDE 101 98 - 107 MMOL/L CALCIUM 8.9 8.4 - 10.2 MG/DL PROTEIN, TOTAL 8.0 6.3 - 8.2 GM/DL ALBUMIN 3.8 3.5 - 5.0 G/dl BILIRUBIN, TOTAL 1.0 0.2 - 1.2 MG/DL AST 32 15 - 41 IU/L ALKALINE PHOSPHATASE 50 38 - 126 IU/L CARBON DIOXIDE (CO2) 27 22 - 30 MMOL/L A/G Ratio 0.9 (L) 1.3 - 2.2 RATIO ALT 25 17 - 63 IU/L ESTIMATED GFR, NON AMER >60 ml/min/1.73sq.m ESTIMATED GFR, >60 ml/min/1.73sq.m GFR COMMENT Average GFR for 50-59 years old = 93. LIPID PANEL W CALCULATED LDL Result Value Ref Range CHOLESTEROL 114 100 - 199 MG/DL TRIGLYCERIDE 85 <150 MG/DL HDL CHOLESTEROL 32 (L) 40 - 60 MG/DL LDL CHOLESTEROL, CALCULATED 65 0 - 100 MG/DL VLDL 17 5.0 - 25.0 MG/DL TCHOL/HDL RATIO, MANUAL ENTER 3.56 RATIO PSA, SCREENING Result Value Ref Range PROSTATE SPECIFIC ANTIGEN 0.130 0 - 4 NG/ML TSH W/FT4 REFLEX Result Value Ref Range TSH, Reflex FT4 0.944 0.45 - 5.33 uIU/ML URIC ACID Result Value Ref Range URIC ACID 7.4 3.5 - 8.5 MG/DL HEMOGLOBIN A1C Result Value Ref Range HEMOGLOBIN A1C 5.0 <6 % Estimated Average Glucose 97 mg/dL Radiographic Imaging XR KNEE LEFT 3 VIEWS Preliminary Result IMPRESSION: 1. No acute osseous abnormality of the left knee. 2. Remote healed fracture deformity of the proximal fibula. 3. Mild tricompartmental degenerative changes. XR SHOULDER LEFT MIN 2 VIEWS Preliminary Result IMPRESSION: 1. 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 2. No acute fracture or dislocation of the left shoulder. 3. Severe osteoarthritis of the left glenohumeral joint with multiple smooth osseous fragments about the joint that could be related to loose bodies or synovial osteochondromatosis. Sclerotic changes at the humeral head is questionable for underlying AVN. 4. No convincing evidence of an acute left rib fracture. Several remote healed left rib fractures are present. XR RIBS LEFT Preliminary Result IMPRESSION: 1. 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 2. No acute fracture or dislocation of the left shoulder. 3. Severe osteoarthritis of the left glenohumeral joint with multiple smooth osseous fragments about the joint that could be related to loose bodies or synovial osteochondromatosis. Sclerotic changes at the humeral head is questionable for underlying AVN. 4. No convincing evidence of an acute left rib fracture. Several remote healed left rib fractures are present. Procedures: Procedures ED Summary/MDM Patient seen and evaluated in the emergency department after a fall. Patient appears heavily under the influence. X-ray of the shoulder shows old post traumatic changes. X-ray of the ribs shows old posttraumatic changes. X-ray of the knee shows old posterior medical changes. I am concerned the patient falls a lot due to his polysubstance abuse. [facility] paperwork was canceled as the patient does not work where the injury occurred. He is aware that is fraud. [place] report reviewed. Patient is on Subutex and received #120 1 mg clonazepam and #120 800 mg gabapentin on 09/28/21 from the Ani Worley nurse practitioner. His subutex is from Dr. Brar. Review of patient's records shows a recent overdose on 09/30/21. I am concerned for this patient and his safety. I have reached out to Dr. Brar's office. Patient is not interested in addition treatment at this time. For his pain from the fall he can utilize Tylenol and Motrin and ice. He is requesting a sling however, the patient arrives to the emergency department with a sling in place. Plan at this time is discharge home. The patient did not drive. Clinical Impression: 1. Fall, initial encounter 2. Contusion of left shoulder, initial encounter 3. Rib contusion, left, initial encounter 4. Contusion of left knee, initial encounter 5. Polysubstance abuse No follow-ups on file. New Prescriptions No medications on file Discontinued Medications No medications on file An After Visit Summary was printed and given to the patient with above information. Olivia Muro PA-C 10/07/21 1354 documented in this encounter [facility] 04-14-2021 History of Present illness Narrative Patient: Carmen Gilman Date: 04/14/2021 Chief Complaint: He is a 55 y.o. year old male who presents today with a complaint of Chief Complaint Patient presents with Right 2nd Toe - Injury . Subjective: He states that the left foot hurts. He notes that he broke his left 2nd toe years ago and it never healed. He notes that he gets a lot of generalized pain in his left foot. He did break his ankle and this was fixed years ago as well. He was recently at the ED for foot pain where they took xrays and referred him here. He does not smoke, but he does chew tobacco. Allergies: No Known Allergies Medications: Current Outpatient Medications: albuterol (2.5 MG/3ML) 0.083% inhalation solution, Take 3 mL by nebulization every 6 hours as needed., Disp: 1 Package, Rfl: 3 albuterol 108 (90 Base) MCG/ACT Aero Soln inhaler, Inhale 1 puff every 6 hours as needed for Wheezing., Disp: 1 Inhaler, Rfl: 2 Aspir[address] tablet, Take 1 tablet by mouth daily., Disp: 30 tablet, Rfl: 11 buprenorphine 8 MG sublingual tablet, Place 8 mg under tongue., Disp: , Rfl: clonazePAM 0.5 MG tablet, Take 0.5 mg by mouth 2 times daily., Disp: , Rfl: Combivent Respimat 20-100 MCG/ACT Aero Soln inhaler, , Disp: , Rfl: diltiazem 240 MG Cap SR 24HR capsule XL, Take 1 capsule by mouth daily., Disp: 30 capsule, Rfl: 2 Glycopyrrolate-Formoterol (Bevespi Aerosphere) 9-4.8 MCG/ACT Aerosol, Inhale 2 puffs 2 times daily., Disp: 1 Inhaler, Rfl: 11 lisinopril 20 MG tablet, Take 1 tablet by mouth daily., Disp: 30 tablet, Rfl: 2 lisinopril 40 MG tablet, Take 40 mg by mouth daily., Disp: , Rfl: predniSONE 10 MG tablet, TAKE 6 TABS BY MOUTH X 1 DAY & DECREASE BY ONE DAILY UNTIL GONE 6,5,4,3,2,1, Disp: , Rfl: gabapentin 800 MG tablet, Take 1 tablet by mouth 3 times daily., Disp: 90 tablet, Rfl: 0 Past Medical History: Diagnosis Date Asthma Essential hypertension, benign Past Surgical History: Procedure Laterality Date APPENDECTOMY BACK SURGERY FOOT SURGERY Social History Occupational History Employer: UNEMPLOYED Tobacco Use Smoking status: Former Smoker Types: Cigarettes Quit date: 2007 Years since quittin.6 Smokeless tobacco: Current User Types: Chew Substance and Sexual Activity Alcohol use: Not Currently Drug use: Not Currently Sexual activity: Not on file @ROS@ Nurse Note: Review of Systems Constitutional: Negative for fatigue, fever and unexpected weight change. HENT: No difficulty swallowing No change in voice Respiratory: Negative for cough, shortness of breath and wheezing. Cardiovascular: Negative for chest pain, palpitations and leg swelling. Gastrointestinal: Negative for constipation, diarrhea, nausea and vomiting. Endocrine: Negative for polydipsia. Genitourinary: Negative for frequency. Neurological: Negative for tremors, weakness and numbness. Psychiatric/Behavioral: Negative for sleep disturbance. The patient is not nervous/anxious. Nursing Assessment: Physical Exam Objective: Vitals: 04/14/21 1315 BP: 122/74 Pulse: 78 Weight: 120.2 kg (265 lb) Height: 1.829 m (6') Examination: Carmen is seated comfortably in the examination room. A&O x 3. No acute distress. Mood and affect are normal and appropriate to situation. He is well developed, and well nourished. Carmen has normal gait and is ambulating in shoes Vascular: Dorsalis pedis and posterior tibial pulses are palpable bilateral. Capillary filling time is less than 3 seconds at the level of the digital tasha bilaterally. There are no ischemic skin changes evident to bilateral lower extremities. Dermatological: There is no evidence of edema, erythema, ecchymosis, open lesions, interdigital maceration or signs of bacterial or fungal infection bilateral lower extremities. Adequate fat padding to the inferior aspect of each heel appreciated. Skin color is noted to be normal. Skin texture is noted to be normal Neurological: Normal muscle mass appreciated to both the lower extremity and foot bilateral. The patient can heel and toe walk with ease as well as arise from a seated position unassisted. Musculoskeletal: left LE: 1st MPJ with bony prominence noted dorsally and medially with no ROM at the MPJ. The MPJ has no crepitus. left 1st MPJ has 5 degrees of dorsiflexion and 5 degrees of plantarflexion with hard end range of motion with pain Left forefoot varus Left 2nd toe with malunion at the middle phalanx. XR FOOT LEFT 3 VIEWS Result Date: 04/04/2021 EXAM: XR FOOT LEFT 3 VIEWS 04/04/2021 2:22 AM EDT [facility] CLINICAL STATEMENT: pain 2nd toe COMPARISON: No prior studies are available at the time of dictation. TECHNIQUE: 3 views AP, oblique and lateral views of the left foot are submitted. FINDINGS: There is dislocation of the proximal interphalangeal joint of the second digit. Degenerative changes of the first metatarsophalangeal joint and the fifth metacarpophalangeal joint with erosive changes. Soft tissue swelling of the great toe. The osseous structures are intact and in anatomic alignment. There is no acute fracture and/or dislocation. Bone mineralization is within normal limits for the patient's age. IMPRESSION: Dislocation of the proximal interphalangeal joint of the second digit. Degenerative changes of the first metatarsophalangeal joint and the fifth metacarpophalangeal joint with erosive changes. Soft tissue swelling of the great toe. FOLLOW-UP: Follow-up as clinically indicated. Impression: Carmen was seen today for injury. Diagnoses and all orders for this visit: Acquired varus deformity of left foot - diclofenac EC [address] tablet; Take 1 tablet by mouth 2 times daily for 10 days. Hallux rigidus, acquired, left Fracture of second toe, left, open, with malunion, subsequent encounter - diclofenac EC [address] tablet; Take 1 tablet by mouth 2 times daily for 10 days. Treatment:Patient was seen and evaluated today in clinic and a history and physical exam was completed. The diagnosis and the etiology was explained to the patient in detail. The treatment plan will be as follows: xrays reviewed ED notes reviewed Will put in an ankle brace to try to control the forefoot varus for now to give him some stability May benefit from physical therapy Will need a custom orthotic in the future to help correct for the forefoot varus Re: left 2nd toe- the toe is deformed and causes pain- at this point will leave it alone- would need surgical correction to fix this. Re: hallux rigidus left- no pain- will leave this alone as well. Rx diclofenac for His pain Ice daily as directed in the office No barefoot. Carmen demonstrated understanding and all of His questions were answered regarding this diagnosis. RTC 4 weeks. Medical decision making based off of the following: Diagnosis based on complexity, risk and mortality- moderate Review of prior external notes: Emergency Department Review of unique test results: Xray x1 Order of each unique test: None Drug management: Prescription sent to pharmacy Nurse Note: Review of Systems Constitutional: Negative for fatigue, fever and unexpected weight change. HENT: No difficulty swallowing No change in voice Respiratory: Negative for cough, shortness of breath and wheezing. Cardiovascular: Negative for chest pain, palpitations and leg swelling. Gastrointestinal: Negative for constipation, diarrhea, nausea and vomiting. Endocrine: Negative for polydipsia. Genitourinary: Negative for frequency. Neurological: Negative for tremors, weakness and numbness. Psychiatric/Behavioral: Negative for sleep disturbance. The patient is not nervous/anxious. Nursing Assessment: Physical Exam documented in this encounter [facility] 04-04-2021 Emergency department Note Emergency Department Report [facility] EMERGENCY DEPARTMENT Service Date:.04/04/21 PCP: Ani Worley Chief Complaint: Chief Complaint Patient presents with Foot Pain bilateral foot pain, patient reports that he is "unablet to walk" HPI Carmen Gilman is a 55 y.o. male presents to the ED today due to pain left foot. Patient states he broke his second toe over 2 years ago. Patient states his been deformed ever since his initial injury. He states the pain is a dull aching sensation increased with weightbearing. He states he is tired of the discomfort he would like his toe removed. He does not report any signs of infection or fever. Review of Systems: Review of Systems Skin: Negative for rash and wound. Past Medical History: Past Medical History: Diagnosis Date Asthma Essential hypertension, benign Past Surgical History: Past Surgical History: Procedure Laterality Date APPENDECTOMY BACK SURGERY FOOT SURGERY Allergies: No Known Allergies Medications: Patient's Medications New Prescriptions No medications on file Previous Medications ALBUTEROL (2.5 MG/3ML) 0.083% INHALATION SOLUTION Take 3 mL by nebulization every 6 hours as needed. ALBUTEROL 108 (90 BASE) MCG/ACT AERO SOLN INHALER Inhale 1 puff every 6 hours as needed for Wheezing. ASPIRIN [address] TABLET Take 1 tablet by mouth daily. BUPRENORPHINE [address] 8 mg under tongue. DILTIAZEM 240 MG CAP SR 24HR CAPSULE XL Take 1 capsule by mouth daily. GABAPENTIN 800 MG TABLET Take 1 tablet by mouth 3 times daily. GLYCOPYRROLATE-FORMOTEROL (BEVESPI AEROSPHERE) 9-4.8 MCG/ACT AEROSOL Inhale 2 puffs 2 times daily. LISINOPRIL 20 MG TABLET Take 1 tablet by mouth daily. Modified Medications No medications on file Discontinued Medications No medications on file Family History: Family History Problem Relation Age of Onset Heart Disease - Other Mother Diabetes Mother Heart Disease - Other Father Social History: Social History Socioeconomic History Marital status: Spouse name: Not on file Number of children: Not on file Years of education: Not on file Highest education level: Not on file Occupational History Not on file Tobacco Use Smoking status: Former Smoker Types: Cigarettes Quit date: 2007 Years since quittin.6 Smokeless tobacco: Current User Types: Chew Substance and Sexual Activity Alcohol use: Not Currently Drug use: Not Currently Sexual activity: Not on file Other Topics Concern Not on file Social History Narrative Not on file Social Determinants of Health Financial Resource Strain: Difficulty of Paying Living Expenses: Food Insecurity: Worried About Running Out of Food in the Last Year: Ran Out of Food in the Last Year: Transportation Needs: Lack of Transportation (Medical): Lack of Transportation (Non-Medical): Physical Activity: Days of Exercise per Week: Minutes of Exercise per Session: Stress: Feeling of Stress : Social Connections: Frequency of Communication with Friends and Family: Frequency of Social Gatherings with Friends and Family: Attends Restorationist Services: Active Member of Clubs or Organizations: Attends Club or Organization Meetings: Marital Status: Intimate Partner Violence: Fear of Current or Ex-Partner: Emotionally Abused: Physically Abused: Sexually Abused: Physical Exam: Physical Exam Vitals and nursing note reviewed. Constitutional: Appearance: Normal appearance. HENT: Head: Normocephalic and atraumatic. Cardiovascular: Rate and Rhythm: Normal rate and regular rhythm. Pulses: Normal pulses. Heart sounds: Normal heart sounds. Musculoskeletal: Comments: Patient's second toe left foot he has deformity of the middle and distal phalanx, pain with palpation Skin: General: Skin is warm. Capillary Refill: Capillary refill takes less than 2 seconds. Neurological: General: No focal deficit present. Mental Status: He is alert and oriented to person, place, and time. Psychiatric: Mood and Affect: Mood normal. Behavior: Behavior normal. Thought Content: Thought content normal. Judgment: Judgment normal. Vital Signs During ED Visit Patient Vitals for the past 24 hrs: BP Temp Temp src Pulse Resp SpO2 Height 04/04/21 0218 1.829 m (6') 04/04/21 0217 120/57 97.6 F (36.4 C) Oral 80 18 95 % Orders/Results: Orders Placed This Encounter XR FOOT LEFT 3 VIEWS lidocaine (XYLOCAINE) 10 mg/mL injection 200 mg Results for orders placed or performed in visit on 02/07/18 CBC, EDIF, PLATELET Result Value Ref Range WBC (WHITE BLOOD COUNT) 4.0 3.6 - 11.0 /cmm RBC 4.99 4.0 - 6.1 /cmm HEMOGLOBIN (HGB) 11.3 (L) 14.0 - 18.0 G/DL HEMATOCRIT (HCT) 35.6 (L) 42.0 - 52.0 % MEAN CELL VOLUME 71.3 (L) 80.0 - 100.0 FL Mean Cell HGB 22.7 (L) 26.0 - 35.0 PG MEAN CELL HGB CONCENTRATION 31.9 27.0 - 37.0 G/DL RBC DISTRIBUTION 15.4 (H) 11.5 - 14.5 % PLATELET COUNT 123 (L) 130 - 400 /cmm MEAN PLATELET VOLUME 6.8 (L) 7.4 - 11.0 FL DIFFERENTIAL TYPE AUTO DIFF % NEUTROPHILS 63.3 37.0 - 75.0 % LYMPHOCYTE 27.0 20.0 - 55.0 % MONOCYTE % 8.6 0.0 - 10.0 % EOSINOPHIL % 0.9 0.0 - 11.0 % BASOPHIL % 0.2 0.0 - 2.0 % Absolute Neutrophil Count 2.5 1 - 7 x10 LYMPHOCYTES, ABSOLUTE 1.10 X10 MONOCYTES, ABSOLUTE 0.3 X10 ABSOLUTE EOSINOPHIL COUNT 0.00 X10 ABSOLUTE BASOPHIL COUNT 0.0 X10 COMPREHENSIVE METABOLIC PANEL Result Value Ref Range GLUCOSE 116 (H) 70 - 100 MG/DL BUN 19 7.0 - 20.0 MG/DL CREATININE SERUM 0.7 0.6 - 1.2 MG/DL SODIUM 134 (L) 136 - 145 MMOL/L POTASSIUM 3.9 3.5 - 5.1 MMOL/L CHLORIDE 101 98 - 107 MMOL/L CALCIUM 8.9 8.4 - 10.2 MG/DL PROTEIN, TOTAL 8.0 6.3 - 8.2 GM/DL ALBUMIN 3.8 3.5 - 5.0 G/dl BILIRUBIN, TOTAL 1.0 0.2 - 1.2 MG/DL AST 32 15 - 41 IU/L ALKALINE PHOSPHATASE 50 38 - 126 IU/L CARBON DIOXIDE (CO2) 27 22 - 30 MMOL/L A/G Ratio 0.9 (L) 1.3 - 2.2 RATIO ALT 25 17 - 63 IU/L ESTIMATED GFR, NON AMER >60 ml/min/1.73sq.m ESTIMATED GFR, >60 ml/min/1.73sq.m GFR COMMENT Average GFR for 50-59 years old = 93. LIPID PANEL W CALCULATED LDL Result Value Ref Range CHOLESTEROL 114 100 - 199 MG/DL TRIGLYCERIDE 85 <150 MG/DL HDL CHOLESTEROL 32 (L) 40 - 60 MG/DL LDL CHOLESTEROL, CALCULATED 65 0 - 100 MG/DL VLDL 17 5.0 - 25.0 MG/DL TCHOL/HDL RATIO, MANUAL ENTER 3.56 RATIO PSA, SCREENING Result Value Ref Range PROSTATE SPECIFIC ANTIGEN 0.130 0 - 4 NG/ML TSH W/FT4 REFLEX Result Value Ref Range TSH, Reflex FT4 0.944 0.45 - 5.33 uIU/ML URIC ACID Result Value Ref Range URIC ACID 7.4 3.5 - 8.5 MG/DL HEMOGLOBIN A1C Result Value Ref Range HEMOGLOBIN A1C 5.0 <6 % Estimated Average Glucose 97 mg/dL Radiographic Imaging XR FOOT LEFT 3 VIEWS Final Result IMPRESSION: Dislocation of the proximal interphalangeal joint of the second digit. Degenerative changes of the first metatarsophalangeal joint and the fifth metacarpophalangeal joint with erosive changes. Soft tissue swelling of the great toe. FOLLOW-UP: Follow-up as clinically indicated. Procedures: Procedures Moderate Sedation Procedure: No ED Summary/MDM I offered to attempt to reduce his dislocation, he states his been that way for 2 years he would like to see a surgeon for amputation. MDM Number of Diagnoses or Management Options Amount and/or Complexity of Data Reviewed Tests in the radiology section of CPT : reviewed and ordered Review and summarize past medical records: yes Independent visualization of images, tracings, or specimens: yes Clinical Impression: 1. Closed displaced fracture of middle phalanx of lesser toe of left foot, initial encounter 2. Dislocation of interphalangeal joint of lesser toe of left foot, initial encounter No follow-ups on file. New Prescriptions No medications on file Discontinued Medications No medications on file An After Visit Summary was printed and given to the patient with above information. . . Nuno Cantor MD 04/04/21 0307 Xrelizabeth [facility] documented in this encounter [facility] 03-30-2021 Emergency department Note Emergency Department Report [facility] EMERGENCY DEPARTMENT Service Date:.03/30/21 PCP: Palmer Givens Chief Complaint: Chief Complaint Patient presents with Toe Pain Pt states that he broke his 2nd left toe and right ankle two years ago. Pain has not gone away. HPI Carmen Gilman is a 55 y.o. male presents to the ED today due to right second toe pain. Patient says he broke his toe 2 years ago and that it's been healed incorrectly and now is causing him pain. Total sticks up from the other toes and it interferes with his walking. Patient has no other injuries no fevers or chills no shortness Review of Systems: Review of Systems Constitutional: Negative for activity change, appetite change, fatigue and fever. HENT: Negative for ear pain, hearing loss, rhinorrhea, sneezing and trouble swallowing. Eyes: Negative for photophobia, pain, redness and visual disturbance. Respiratory: Negative for chest tightness, shortness of breath and wheezing. Cardiovascular: Negative for chest pain, palpitations and leg swelling. Gastrointestinal: Negative for abdominal pain, anal bleeding, diarrhea and nausea. Endocrine: Negative for polydipsia, polyphagia and polyuria. Genitourinary: Negative for difficulty urinating, flank pain, hematuria and urgency. Musculoskeletal: Positive for gait problem. Negative for back pain, joint swelling, neck pain and neck stiffness. Skin: Negative for color change, pallor and rash. Allergic/Immunologic: Negative for environmental allergies and immunocompromised state. Neurological: Negative for dizziness, seizures, syncope, weakness, numbness and headaches. Hematological: Negative for adenopathy. Does not bruise/bleed easily. Psychiatric/Behavioral: Negative for behavioral problems, confusion, dysphoric mood, hallucinations and self-injury. The patient is not nervous/anxious. Past Medical History: Past Medical History: Diagnosis Date Asthma Essential hypertension, benign Past Surgical History: Past Surgical History: Procedure Laterality Date APPENDECTOMY BACK SURGERY FOOT SURGERY Allergies: No Known Allergies Medications: Patient's Medications New Prescriptions No medications on file Previous Medications ALBUTEROL (2.5 MG/3ML) 0.083% INHALATION SOLUTION Take 3 mL by nebulization every 6 hours as needed. ALBUTEROL 108 (90 BASE) MCG/ACT AERO SOLN INHALER Inhale 1 puff every 6 hours as needed for Wheezing. ASPIRIN [address] TABLET Take 1 tablet by mouth daily. BUPRENORPHINE [address] 8 mg under tongue. DILTIAZEM 240 MG CAP SR 24HR CAPSULE XL Take 1 capsule by mouth daily. GABAPENTIN 800 MG TABLET Take 1 tablet by mouth 3 times daily. GLYCOPYRROLATE-FORMOTEROL (BEVESPI AEROSPHERE) 9-4.8 MCG/ACT AEROSOL Inhale 2 puffs 2 times daily. LISINOPRIL 20 MG TABLET Take 1 tablet by mouth daily. Modified Medications No medications on file Discontinued Medications No medications on file Family History: Family History Problem Relation Age of Onset Heart Disease - Other Mother Diabetes Mother Heart Disease - Other Father Social History: Social History Socioeconomic History Marital status: Spouse name: Not on file Number of children: Not on file Years of education: Not on file Highest education level: Not on file Occupational History Not on file Tobacco Use Smoking status: Former Smoker Types: Cigarettes Quit date: 2007 Years since quittin.6 Smokeless tobacco: Current User Types: Chew Substance and Sexual Activity Alcohol use: Not Currently Drug use: Not Currently Sexual activity: Not on file Other Topics Concern Not on file Social History Narrative Not on file Social Determinants of Health Financial Resource Strain: Difficulty of Paying Living Expenses: Food Insecurity: Worried About Running Out of Food in the Last Year: Ran Out of Food in the Last Year: Transportation Needs: Lack of Transportation (Medical): Lack of Transportation (Non-Medical): Physical Activity: Days of Exercise per Week: Minutes of Exercise per Session: Stress: Feeling of Stress : Social Connections: Frequency of Communication with Friends and Family: Frequency of Social Gatherings with Friends and Family: Attends Restorationist Services: Active Member of Clubs or Organizations: Attends Club or Organization Meetings: Marital Status: Intimate Partner Violence: Fear of Current or Ex-Partner: Emotionally Abused: Physically Abused: Sexually Abused: Physical Exam: Physical Exam Vitals and nursing note reviewed. Constitutional: General: He is not in acute distress. Appearance: He is well-developed. He is not diaphoretic. HENT: Head: Normocephalic and atraumatic. Nose: Nose normal. Mouth/Throat: Pharynx: No oropharyngeal exudate. Eyes: General: No scleral icterus. Right eye: No discharge. Left eye: No discharge. Conjunctiva/sclera: Conjunctivae normal. Pupils: Pupils are equal, round, and reactive to light. Neck: Thyroid: No thyromegaly. Vascular: No JVD. Cardiovascular: Rate and Rhythm: Normal rate and regular rhythm. Heart sounds: Normal heart sounds. No murmur heard. No friction rub. No gallop. Pulmonary: Effort: Pulmonary effort is normal. No respiratory distress. Breath sounds: Normal breath sounds. No wheezing or rales. Chest: Chest wall: No tenderness. Abdominal: General: Bowel sounds are normal. There is no distension. Palpations: Abdomen is soft. There is no mass. Tenderness: There is no abdominal tenderness. There is no guarding or rebound. Hernia: No hernia is present. Musculoskeletal: General: No tenderness or deformity. Normal range of motion. Cervical back: Normal range of motion and neck supple. Comments: Right second toe is deformed and angulated dorsally. It is not currently inflamed. There is no signs of wounds. Skin: General: Skin is warm and dry. Coloration: Skin is not pale. Findings: No erythema or rash. Neurological: General: No focal deficit present. Mental Status: He is alert and oriented to person, place, and time. Cranial Nerves: No cranial nerve deficit. Motor: No abnormal muscle tone. Coordination: Coordination normal. Psychiatric: Behavior: Behavior normal. Thought Content: Thought content normal. Judgment: Judgment normal. Vital Signs During ED Visit Patient Vitals for the past 24 hrs: BP Temp Temp src Pulse Resp SpO2 Height Weight 03/30/21 1247 1.829 m (6') 120.2 kg (265 lb) 03/30/21 1246 129/67 97.9 F (36.6 C) Oral 82 18 96 % Orders/Results: Orders Placed This Encounter XR TOE 1ST RIGHT DISCONTD: piperacillin-tazobactam (ZOSYN) 3.375 g in dextrose premix IVPB DISCONTD: piperacillin-tazobactam (ZOSYN) 3.375 g in dextrose premix IVPB DISCONTD: vancomycin (VANCOCIN) 1,000 mg in dextrose 200 ml premix IVPB Results for orders placed or performed in visit on 02/07/18 CBC, EDIF, PLATELET Result Value Ref Range WBC (WHITE BLOOD COUNT) 4.0 3.6 - 11.0 /cmm RBC 4.99 4.0 - 6.1 /cmm HEMOGLOBIN (HGB) 11.3 (L) 14.0 - 18.0 G/DL HEMATOCRIT (HCT) 35.6 (L) 42.0 - 52.0 % MEAN CELL VOLUME 71.3 (L) 80.0 - 100.0 FL Mean Cell HGB 22.7 (L) 26.0 - 35.0 PG MEAN CELL HGB CONCENTRATION 31.9 27.0 - 37.0 G/DL RBC DISTRIBUTION 15.4 (H) 11.5 - 14.5 % PLATELET COUNT 123 (L) 130 - 400 /cmm MEAN PLATELET VOLUME 6.8 (L) 7.4 - 11.0 FL DIFFERENTIAL TYPE AUTO DIFF % NEUTROPHILS 63.3 37.0 - 75.0 % LYMPHOCYTE 27.0 20.0 - 55.0 % MONOCYTE % 8.6 0.0 - 10.0 % EOSINOPHIL % 0.9 0.0 - 11.0 % BASOPHIL % 0.2 0.0 - 2.0 % Absolute Neutrophil Count 2.5 1 - 7 x10 LYMPHOCYTES, ABSOLUTE 1.10 X10 MONOCYTES, ABSOLUTE 0.3 X10 ABSOLUTE EOSINOPHIL COUNT 0.00 X10 ABSOLUTE BASOPHIL COUNT 0.0 X10 COMPREHENSIVE METABOLIC PANEL Result Value Ref Range GLUCOSE 116 (H) 70 - 100 MG/DL BUN 19 7.0 - 20.0 MG/DL CREATININE SERUM 0.7 0.6 - 1.2 MG/DL SODIUM 134 (L) 136 - 145 MMOL/L POTASSIUM 3.9 3.5 - 5.1 MMOL/L CHLORIDE 101 98 - 107 MMOL/L CALCIUM 8.9 8.4 - 10.2 MG/DL PROTEIN, TOTAL 8.0 6.3 - 8.2 GM/DL ALBUMIN 3.8 3.5 - 5.0 G/dl BILIRUBIN, TOTAL 1.0 0.2 - 1.2 MG/DL AST 32 15 - 41 IU/L ALKALINE PHOSPHATASE 50 38 - 126 IU/L CARBON DIOXIDE (CO2) 27 22 - 30 MMOL/L A/G Ratio 0.9 (L) 1.3 - 2.2 RATIO ALT 25 17 - 63 IU/L ESTIMATED GFR, NON AMER >60 ml/min/1.73sq.m ESTIMATED GFR, >60 ml/min/1.73sq.m GFR COMMENT Average GFR for 50-59 years old = 93. LIPID PANEL W CALCULATED LDL Result Value Ref Range CHOLESTEROL 114 100 - 199 MG/DL TRIGLYCERIDE 85 <150 MG/DL HDL CHOLESTEROL 32 (L) 40 - 60 MG/DL LDL CHOLESTEROL, CALCULATED 65 0 - 100 MG/DL VLDL 17 5.0 - 25.0 MG/DL TCHOL/HDL RATIO, MANUAL ENTER 3.56 RATIO PSA, SCREENING Result Value Ref Range PROSTATE SPECIFIC ANTIGEN 0.130 0 - 4 NG/ML TSH W/FT4 REFLEX Result Value Ref Range TSH, Reflex FT4 0.944 0.45 - 5.33 uIU/ML URIC ACID Result Value Ref Range URIC ACID 7.4 3.5 - 8.5 MG/DL HEMOGLOBIN A1C Result Value Ref Range HEMOGLOBIN A1C 5.0 <6 % Estimated Average Glucose 97 mg/dL Radiographic Imaging XR TOE 1ST RIGHT (Results Pending) Moderate Sedation Procedure: No Procedures: Procedures ED Summary/MDM Given this injury is over 2 years old and has no acute component. Patient is being referred to podiatry for follow-up. Clinical Impression: 1. Right foot pain No follow-ups on file. New Prescriptions No medications on file Discontinued Medications No medications on file An After Visit Summary was printed and given to the patient with above information. . . Sofía Devine MD 03/30/21 1257 documented in this encounter [facility] 02-02-2021 Emergency department Note Images from the original note were not included. [facility] EMERGENCY DEPARTMENT PCP - Ani Worley CNP N - [id number] Please excuse grammar and misspelling secondary to Dragon dictation use Chief Complaint Patient presents with Shoulder Pain Toe Pain HPI Chief complaint shoulder and toe pain This is a 55-year-old male who states that he fell several weeks ago injuring his shoulder and his toe. He has not really take anything other than [id number] medications. Patient states that his third toes been broken for 18 months he thinks he has foreign body sensation. The patient denies any shortness of breath or chest pain. Patient states that he thinks he fell from his chair this morning and reinjured his extremity. The patient denies any loss conscious he states the pain is 8 or 9 out of 10. There is no associated chest pain abdominal pain shortness of breath MEDICAL DECISION MAKING This is a 55-year-old male complains of pain in his toe and his left shoulder concern for possible foreign body I did not see any obvious cellulitis infection foreign body x-ray of the shoulder is negative for fracture. Patient is given a sling for comfort his right clavicle may be related to a shoulder separation but certainly no evidence of acute fracture or pneumothorax. Patient will be discharged with recommendation [id number] Aleve and Tylenol as needed for pain outpatient follow-up primary care provider . . No results found for this visit on 02/02/21. Radiographic Imaging (if any) During ED Visit All Radiographic Imaging (if any) were read by Radiologist and reviewed and viewed by myself I have also reviewed narcotic score prior to giving any narcotic pain medications XR Clavicle Right Preliminary Result Mild widening of the acromioclavicular joint with alignment otherwise preserved, similar in appearance to the chest radiographs from 12/03/2020 and 11/01/2020. No fracture. DL/klb Workstation ID: [id number] Toe(s) Left 2+ Views Final Result 1. No identifiable radiopaque foreign bodies are identified. 2. No definite fractures or dislocations. 3. Degenerative changes as described above. KKV/mjr Workstation ID: [id number] Medications Ordered/Given During ED Visit Medications naproxen (NAPROSYN) tablet 500 mg (500 mg Oral Given 02/02/211741) traMADoL (ULTRAM) tablet 50 mg (50 mg Oral Given 02/02/211741) acetaminophen (TYLENOL) tablet 975 mg (975 mg Oral Given 02/02/211741) Procedures Review of Systems Review of Systems Constitutional: Negative for activity change, appetite change, fatigue and fever. HENT: Negative for congestion and ear discharge. Eyes: Negative for photophobia. Respiratory: Positive for shortness of breath. Negative for cough and choking. Cardiovascular: Positive for leg swelling. Negative for palpitations. Gastrointestinal: Negative for abdominal pain and blood in stool. Endocrine: Negative for polyuria. Genitourinary: Negative for difficulty urinating, flank pain and hematuria. Musculoskeletal: Positive for arthralgias, back pain and gait problem. Skin: Positive for rash. Negative for color change. Neurological: Positive for dizziness and weakness. Negative for syncope, light-headedness and numbness. Hematological: Does not bruise/bleed easily. Psychiatric/Behavioral: Negative for agitation. All other systems reviewed and are negative. All systems reviewed negative except as mentioned above. Physical Exam Vital Signs During ED Visit (as charted by nursing) Patient Vitals for the past 24 hrs: BP Temp Temp src Pulse Resp SpO2 Height Weight 02/02/21 1747 (!) 104/36 72 02/02/21 1537 110/69 98.2 F (36.8 C) Oral 79 18 97 % 02/02/21 1536 6' 122.5 kg (270 lb) Physical Exam Vitals and nursing note reviewed. Constitutional: General: He is not in acute distress. Appearance: He is well-developed. He is not ill-appearing or diaphoretic. Comments: Chronically ill-appearing patient in no acute distress is noted HENT: Head: Normocephalic and atraumatic. Right Ear: External ear normal. Left Ear: External ear normal. Nose: Nose normal. Eyes: General: Right eye: No discharge. Left eye: No discharge. Conjunctiva/sclera: Conjunctivae normal. Pupils: Pupils are equal, round, and reactive to light. Neck: Vascular: No JVD. Trachea: Phonation normal. Cardiovascular: Rate and Rhythm: Normal rate and regular rhythm. Heart sounds: Normal heart sounds, S1 normal and S2 normal. No murmur heard. No friction rub. No gallop. Pulmonary: Effort: Pulmonary effort is normal. No respiratory distress. Breath sounds: Normal breath sounds. No wheezing. Chest: Chest wall: No tenderness. Abdominal: General: Bowel sounds are normal. There is no distension. Palpations: Abdomen is soft. Tenderness: There is no abdominal tenderness. There is no guarding or rebound. Negative signs include Canales's sign and McBurney's sign. Hernia: No hernia is present. There is no hernia in the ventral area. Musculoskeletal: Right shoulder: Tenderness present. No bony tenderness. Decreased range of motion. Cervical back: Neck supple. Right lower leg: Swelling present. Left lower leg: Swelling present. Feet: Feet: Comments: Mild tenderness on palpation left third toe there is no significant redness swelling or obvious retained foreign body or drainage noted Lymphadenopathy: Cervical: No cervical adenopathy. Skin: General: Skin is warm and dry. Capillary Refill: Capillary refill takes less than 2 seconds. Neurological: Mental Status: He is oriented to person, place, and time. Mental status is at baseline. GCS: GCS eye subscore is 4. GCS verbal subscore is 5. GCS motor subscore is 6. Cranial Nerves: Cranial nerves are intact. No cranial nerve deficit. Past Medical History Past Medical History: Diagnosis Date Anxiety Arrhythmia Arthritis Asthma COPD (chronic obstructive pulmonary disease) (HCC) Diabetes (HCC) Hypertension Opioid dependence (HCC) Past Surgical History Past Surgical History: Procedure Laterality Date APPENDECTOMY ARTHROPLASTY KNEE TOTAL ROBOTIC ASSISTED Right 01/08/2020 Procedure: Right Total Knee Replacement Robotic; Surgeon: Sofía Dukes MD; Location: Main OR; Service: Ortho-Robotics FOOT SURGERY Left MANDIBLE FRACTURE SURGERY ORTHOPEDIC SURGERY Right knee THORACIC DUCT LIGATION 01/15/2017 THORACIC DUCT LIGATION Family History Family History Problem Relation Age of Onset Heart disease Mother Diabetes Mother Social History Social History Socioeconomic History Marital status: Single Spouse name: Not on file Number of children: Not on file Years of education: Not on file Highest education level: Not on file Occupational History Not on file Tobacco Use Smoking status: Former Smoker Types: Cigarettes Quit date: 01/25/2007 Years since quittin.0 Smokeless tobacco: Current User Types: Chew Vaping Use Vaping Use: Never used Substance and Sexual Activity Alcohol use: Not Currently Drug use: Yes Types: Marijuana Sexual activity: Not Currently Other Topics Concern Not on file Social History Narrative Merged History Encounter Social Determinants of Health Financial Resource Strain: Difficulty of Paying Living Expenses: Food Insecurity: Worried About Running Out of Food in the Last Year: Ran Out of Food in the Last Year: Transportation Needs: Lack of Transportation (Medical): Lack of Transportation (Non-Medical): Physical Activity: Days of Exercise per Week: Minutes of Exercise per Session: Stress: Feeling of Stress : Social Connections: Frequency of Communication with Friends and Family: Frequency of Social Gatherings with Friends and Family: Attends [employer] Services: Active Member of Clubs or Organizations: Attends Club or Organization Meetings: Marital Status: Allergies No Known Allergies Medications Discharge Medication List as of 02/02/2021 6:35 PM START taking these medications Details ibuprofen (ADVIL,MOTRIN) 600 MG tablet Take 1 (one) tablet (600 mg total) by mouth every 8 (eight) hours as needed for pain ., Starting 02/02/2021, Until 02/07/2021 at 2359, Normal CONTINUE these medications which have NOT CHANGED Details albuterol (PROVENTIL) 2.5 mg /3 mL (0.083 %) nebulizer solution USE ONE AMPULE (3ML) BY NEBULIZER EVERY 6 HOURS NEEDED, Historical Med albuterol 90 mcg/actuation inhaler Inhale 2 puffs every 6 (six) hours as needed for wheezing., Until Discontinued, Historical Med aspirin 81 MG EC tablet Take 81 mg by mouth daily ., Starting Tue09/03/2020, Historical Med azithromycin (ZITHROMAX) 250 MG tablet 2 tabs day 1 and 1 daily TG ., Normal Bevespi Aerosphere 9-4.8 mcg HFAA Inhale 2 puffs 2 (two) times a day ., Starting Tue02/11/2020, Historical Med buprenorphine HCL (SUBUTEX) 8 mg SL Tablet DISSOLVE ONE TABLET UNDER THE TONGUE TWICE DAILY, Historical Med diltiazem (TIAZAC) 240 MG 24 hr capsule Take 240 mg by mouth daily ., Starting Tue09/03/2020, Historical Med gabapentin (NEURONTIN) 800 MG tablet Take 800 mg by mouth 3 (three) times a day ., Starting Tue06/13/2020, Historical Med lisinopril (PRINIVIL,ZESTRIL) 20 MG tablet Take 20 mg by mouth daily., Starting Tue02/20/2018, Historical Med pantoprazole (PROTONIX) 20 MG tablet Take 1 (one) tablet (20 mg total) by mouth daily Start: 01/09/20., Starting Tue01/09/2020, Until Tue02/08/2020, Normal Saulo Joseph MD 02/02/212039 L 3rd toe has been broken for 18 months, states he thinks he has glass in it. Pt also c/o R collar bone pain. States he woke up on the floor the other morning. Thinks he fell from chair. documented in this encounter [facility] Evaluation note Diagnosis Pain in joint of right shoulder- Primary Contusion of right great toe without damage to nail, initial encounter [facility] Fall, initial encounter- Primary Contusion of left shoulder, initial encounter Rib contusion, left, initial encounter Contusion of left knee, initial encounter Polysubstance abuse Other, mixed, or unspecified nondependent drug abuse, unspecified [facility] Diagnosis MARLENE (acute kidney injury) Acute kidney failure, unspecified Dehydration Hypotension, unspecified hypotension type Chronic hepatitis C without hepatic coma Chronic viral hepatitis B without delta agent and 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 Drug abuse Other, mixed, or unspecified nondependent drug abuse, unspecified Swelling of bilateral lower extremities Elevated d-dimer Abnormal coagulation profile Anemia , unspecified Anemia, unspecified Class 2 obesity due to excess calories without serious comorbidity in adult Hyponatremia Hyposmolality and/or hyponatremia Acute renal failure Acute kidney failure, unspecified Generalized weakness Other malaise and fatigue Benign hypertension Essential hypertension, benign Asthma Unspecified asthma Thrombocytopenia Thrombocytopenia, unspecified Hyperbilirubinemia Disorders of bilirubin excretion Elevated INR Abnormal coagulation profile Pancytopenia Other pancytopenia Leukopenia Leukocytopenia, unspecified Lymphopenia Lymphocytopenia Microcytic hypochromic anemia Iron deficiency anemia, unspecified Elevated BUN Other abnormal blood chemistry CRP elevated Elevated C-reactive protein (CRP) Rheumatoid factor positive Other and unspecified nonspecific immunological findings 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 Carrier or suspected carrier of Methicillin susceptible Staphylococcus aureus Proteinuria Severe protein-calorie malnutrition Other severe protein-calorie malnutrition [facility] [place] [facility] Diagnosis Right foot pain- Primary Pain in limb [facility] [place] [facility]* Diagnosis Closed displaced fracture of middle phalanx of lesser toe of left foot, initial encounter- Primary Dislocation of interphalangeal joint of lesser toe of left foot, initial encounter [facility] Diagnosis Acquired varus deformity of left foot- Primary Hallux rigidus, acquired, left Fracture of second toe, left, open, with malunion, subsequent encounter [facility] [place] [facility]* Diagnosis Cellulitis of right lower extremity- Primary Cellulitis and abscess of leg, except foot Venous stasis ulcer of right calf, unspecified ulcer stage, unspecified whether varicose veins present [facility] [place] [facility]* Diagnosis MARLENE (acute kidney injury) (HCC) Cellulitis of lower extremity, unspecified laterality Hypotension, unspecified hypotension type Dehydration Peripheral edema Edema Fall Unspecified fall documented in this encounter [facility] note* Diagnosis Ulcer of right foot, unspecified ulcer stage (HCC)- Primary Lymphedema of both lower extremities [facility]* Diagnosis Shortness of breath- Primary [facility] [place] [facility]* Diagnosis Referral of patient- Primary Referral of patient without examination or treatment Chronic viral hepatitis B without delta agent and 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 Chronic hepatitis C without hepatic coma [facility] Diagnosis Chronic hepatitis C without hepatic coma- Primary Hepatitis B core antibody positive Other and unspecified nonspecific immunological findings Healthcare maintenance Routine general medical examination at a [place] [facility] Obesity (BMI 30-39.9) Obesity, unspecified Pancytopenia Other pancytopenia Alcoholic cirrhosis, unspecified whether ascites present [facility] Diagnosis Chronic hepatitis C without hepatic coma- Primary Hepatitis B core antibody positive Other and unspecified nonspecific immunological findings Healthcare maintenance Routine general medical examination at a [place] [facility] Alcoholic cirrhosis, unspecified whether ascites present Pancytopenia Other pancytopenia Obesity (BMI 30-39.9) Obesity, unspecified [facility] [place] [facility]* Diagnosis Cirrhosis of liver without ascites, unspecified hepatic cirrhosis type- Primary Chronic hepatitis C without hepatic coma [facility] [place] [facility]* Diagnosis Chronic hepatitis C without hepatic coma- Primary Hepatitis B core antibody positive Other and unspecified nonspecific immunological findings Pancytopenia Other pancytopenia Healthcare maintenance Routine general medical examination at a [place] [facility] Obesity (BMI 30-39.9) Obesity, unspecified Cirrhosis of liver without ascites, unspecified hepatic cirrhosis type Wound of right lower extremity, subsequent encounter [facility] [place] [facility]* Diagnosis Cirrhosis of liver without ascites, unspecified hepatic cirrhosis type Chronic hepatitis C without hepatic coma [facility] [place] [facility]* Diagnosis Wound of right lower extremity, subsequent encounter- Primary Chronic hepatitis C without hepatic coma Hepatitis B core antibody positive Other and unspecified nonspecific immunological findings Pancytopenia Other pancytopenia Obesity (BMI 30-39.9) Obesity, unspecified Healthcare maintenance Routine general medical examination at a [place] [facility] Cirrhosis of liver without ascites, unspecified hepatic cirrhosis type [facility] [place] [facility]* Diagnosis Venous stasis ulcer of right lower leg with edema of right lower leg- Primary Chronic venous insufficiency Unspecified venous (peripheral) insufficiency Lymphedema Other lymphedema [facility] [place] [facility]* Diagnosis Venous stasis ulcer of right lower leg with edema of right lower leg- Primary Chronic venous insufficiency Unspecified venous (peripheral) insufficiency Lymphedema Other lymphedema [facility]* Diagnosis Pancytopenia- Primary Other pancytopenia Thrombocytopenia Thrombocytopenia, unspecified Leukopenia, unspecified type Microcytic hypochromic anemia Iron deficiency anemia, unspecified Chronic hepatitis C without hepatic coma 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 Viral hepatitis B without mention of hepatic coma, chronic, with hepatitis delta Hepatosplenomegaly Other chronic nonalcoholic liver disease [facility] [place] [facility]* Diagnosis Venous stasis ulcer of right lower leg with edema of right lower leg- Primary Chronic venous insufficiency Unspecified venous (peripheral) insufficiency [facility]* Diagnosis Chronic hepatitis C without hepatic coma- Primary Hepatitis B core antibody positive Other and unspecified nonspecific immunological findings Pancytopenia Other pancytopenia Cirrhosis of liver without ascites, unspecified hepatic cirrhosis type Healthcare maintenance Routine general medical examination at a [place] [facility] Obesity (BMI 30-39.9) Obesity, unspecified [facility] [place] [facility]* Diagnosis Hand weakness Muscle weakness (generalized) documented [facility] [place] [facility]* Diagnosis Venous stasis ulcer of right lower leg with edema of right lower leg- Primary Chronic venous insufficiency Unspecified venous (peripheral) insufficiency Lymphedema Other lymphedema [facility]* Diagnosis Venous stasis ulcer of right lower leg with edema of right lower leg- Primary Chronic venous insufficiency Unspecified venous (peripheral) insufficiency Lymphedema Other lymphedema [facility]* Diagnosis Venous stasis ulcer of right lower leg with edema of right lower leg- Primary Chronic venous insufficiency Unspecified venous (peripheral) insufficiency Lymphedema Other lymphedema Fungal dermatitis Dermatomycosis, unspecified [facility]* Diagnosis Venous stasis ulcer of right lower leg with edema of right lower leg- Primary Chronic venous insufficiency Unspecified venous (peripheral) insufficiency Lymphedema Other lymphedema [facility]* Diagnosis Chronic hepatitis C without hepatic coma- Primary Hepatitis B core antibody positive Other and unspecified nonspecific immunological findings Pancytopenia Other pancytopenia Healthcare maintenance Routine general medical examination at a health care facility Cirrhosis of liver without ascites, unspecified hepatic cirrhosis type Alcoholic cirrhosis, unspecified whether ascites present Hand weakness Muscle weakness (generalized) Wound of right lower extremity, subsequent encounter [facility]* Diagnosis Venous stasis ulcer of right lower leg with edema of right lower leg- Primary Chronic venous insufficiency Unspecified venous (peripheral) insufficiency Lymphedema Other lymphedema Foot mass, right [facility]* Diagnosis Venous stasis ulcer of right lower leg with edema of right lower leg- Primary Chronic venous insufficiency Unspecified venous (peripheral) insufficiency Lymphedema Other lymphedema Pressure ulcer of right foot, stage 3 Foot mass, right [facility]* Diagnosis Venous stasis ulcer of right lower leg with edema of right lower leg- Primary Pressure ulcer of right foot, stage 3 Chronic venous insufficiency Unspecified venous (peripheral) insufficiency Lymphedema Other lymphedema [facility]* Diagnosis Mass of right foot- Primary Bursitis of right foot Subluxation of foot joint, right, initial encounter [facility]* Diagnosis Cellulitis of left lower extremity- Primary Cellulitis and abscess of leg, except foot Suspected DVT (deep vein thrombosis) Sepsis without acute organ dysfunction, due to unspecified organism Pancytopenia Other pancytopenia Cellulitis and abscess of left lower extremity [facility]* Diagnosis Cellulitis of lower extremity, unspecified laterality- Primary Failure of outpatient treatment Ulcers of both lower legs, limited to breakdown of skin [facility]* Diagnosis Cellulitis of right lower extremity- Primary Cellulitis and abscess of leg, except foot Cellulitis and abscess of foot Cellulitis and abscess of foot, except toes Bilateral cellulitis of lower leg Cellulitis and abscess of leg, except foot 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 Viral hepatitis B without mention of hepatic coma, chronic, with hepatitis delta Bilateral cellulitis of lower leg Cellulitis and abscess of leg, except foot Asthma Unspecified asthma Benign hypertension Essential hypertension, benign Chronic hepatitis C without hepatic coma Drug abuse Other, mixed, or unspecified nondependent drug abuse, unspecified Idiopathic thrombocytopenic purpura (ITP) Immune thrombocytopenic purpura Leukopenia Leukocytopenia, unspecified Anemia , unspecified Anemia, unspecified Cellulitis and abscess of foot Cellulitis and abscess of foot, except toes [facility] Diagnosis Nondependent cocaine abuse (HCC)- Primary Nondependent cocaine abuse, unspecified Hepatic cirrhosis, unspecified hepatic cirrhosis type, unspecified whether ascites present (HCC) Acute on chronic respiratory failure with hypoxia and hypercapnia (HCC) Pulmonary emphysema, unspecified emphysema type (HCC) Essential hypertension Unspecified essential hypertension Opioid dependence with intoxication with complication (HCC) Sepsis, due to unspecified organism, unspecified whether acute organ dysfunction present (HCC) Cellulitis of lower extremity, unspecified laterality documented in this encounter [facility] note* Diagnosis Wound of right lower extremity, subsequent encounter- Primary Chronic hepatitis C without hepatic coma Pancytopenia Other pancytopenia MSSA (methicillin susceptible Staphylococcus aureus) infection Methicillin susceptible Staphylococcus aureus in conditions classified elsewhere and of unspecified site Alcoholic cirrhosis, unspecified whether ascites present Left leg cellulitis Cellulitis and abscess of leg, except foot [facility] Diagnosis Left leg cellulitis- Primary Cellulitis and abscess of leg, except foot Close exposure to COVID-19 virus Chronic hepatitis C without hepatic coma Wound of right lower extremity, subsequent encounter Pancytopenia Other pancytopenia Alcoholic cirrhosis, unspecified whether ascites present Healthcare maintenance Routine general medical examination at a health care facility Obesity (BMI 30-39.9) Obesity, unspecified [facility] [place] [facility]* Diagnosis Pancytopenia- Primary Other pancytopenia Chronic hepatitis C without hepatic coma Wound of right lower extremity, subsequent encounter Left leg cellulitis Cellulitis and abscess of leg, except foot Alcoholic cirrhosis, unspecified whether ascites present Obesity (BMI 30-39.9) Obesity, unspecified Healthcare maintenance Routine general medical examination at a health care facility Hepatitis B core antibody positive Other and unspecified nonspecific immunological findings Housing instability [facility] Diagnosis Pressure ulcer of right foot, stage 3- Primary Venous stasis ulcer of right lower leg with edema of right lower leg Lymphedema Other lymphedema Chronic venous insufficiency Unspecified venous (peripheral) insufficiency Venous stasis ulcer of left lower leg with edema of left lower leg [facility]* Diagnosis Hematoma- Primary Contusion of unspecified site Cirrhosis of liver without ascites, unspecified hepatic cirrhosis type (HCC) Opioid dependence with withdrawal (HCC) Pulmonary emphysema, unspecified emphysema type (HCC) Thrombocytopenia (HCC) Unspecified thrombocytopenia Venous stasis dermatitis of both lower extremities Atrial fibrillation with rapid ventricular response (HCC) Chronic pain syndrome Plantar ulcer of right foot, unspecified ulcer stage (HCC) Skin ulcer of left lower leg with fat layer exposed (HCC) [facility] Leg hematoma, right, sequela- Primary Leg hematoma, right, initial encounter Ulcer of left lower extremity with fat layer exposed (HCC) [facility] Diagnosis Cirrhosis of liver without ascites, unspecified hepatic cirrhosis type (HCC) Pulmonary emphysema, unspecified emphysema type (HCC) Venous stasis dermatitis of both lower extremities Skin ulcer of left lower leg with fat layer exposed (HCC) Opioid dependence with opioid-induced disorder (HCC) Infection associated with internal right knee prosthesis, subsequent encounter Chronic pain syndrome Adrenal insufficiency (HCC) Glucocorticoid deficiency [facility] Diagnosis Cirrhosis of liver without ascites, unspecified hepatic cirrhosis type (HCC) Pulmonary emphysema, unspecified emphysema type (HCC) Venous stasis dermatitis of both lower extremities Skin ulcer of left lower leg with fat layer exposed (HCC) Opioid dependence with opioid-induced disorder (HCC) Infection associated with internal right knee prosthesis, subsequent encounter Chronic pain syndrome Adrenal insufficiency (HCC) Glucocorticoid deficiency [facility]* Diagnosis Ulcer of left lower extremity with fat layer exposed (HCC)- Primary Wound of right leg, subsequent encounter [facility]* Diagnosis Ulcer of left lower extremity with fat layer exposed (HCC)- Primary Wound of right leg, subsequent encounter [facility]* Diagnosis Abscess of right knee- Primary Skin ulcer of right knee with fat layer exposed (HCC) Wound of right leg, subsequent encounter Ulcer of left lower extremity with fat layer exposed (HCC) [facility]* Diagnosis Abscess of right knee- Primary Skin ulcer of right knee with fat layer exposed (HCC) Wound of right leg, subsequent encounter Ulcer of left lower extremity with fat layer exposed (HCC) [facility]* Diagnosis Foot infection- Primary Unspecified local infection of skin and subcutaneous tissue Wound cellulitis Foot infection Unspecified local infection of skin and subcutaneous tissue [facility]* Diagnosis Chronic ulcer of left leg with fat layer exposed (HCC)- Primary 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) [facility]* Diagnosis 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)- Primary documented in this encounter [facility]* Diagnosis 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)- Primary documented in this encounter [facility] note* Diagnosis 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)- [facility] [place] [facility] Diagnosis Cellulitis, unspecified cellulitis site- Primary documented in this encounter [facility] note* Diagnosis Encounter for screening colonoscopy- Primary documented in this encounter [facility] note* Diagnosis Midfoot collapse of right lower extremity- Primary Pes planus of both feet Type 2 diabetes mellitus without complication, without long-term current use of insulin (HCC) Peripheral vascular disease (HCC) Unspecified peripheral vascular disease Arthritis of midfoot, unspecified laterality Chronic venous hypertension, unspecified laterality documented in this encounter [facility] note* Diagnosis Acute exacerbation of chronic obstructive pulmonary disease (COPD) (HCC)- Primary Obstructive chronic bronchitis with exacerbation Acute respiratory failure, unspecified whether with hypoxia or hypercapnia (HCC) COPD exacerbation (HCC) Obstructive chronic bronchitis with exacerbation Cannabis abuse Nondependent cannabis abuse, unspecified Morbid obesity with BMI of 40.0-44.9, adult (HCC) Atrial fibrillation with rapid ventricular response (HCC)- Primary Community acquired pneumonia, unspecified laterality Chronic obstructive pulmonary disease, unspecified COPD type (HCC) Cerebrovascular accident (CVA), unspecified mechanism (HCC) Acute renal failure, unspecified acute renal failure type (HCC) Sepsis, due to unspecified organism, unspecified whether acute organ dysfunction present (HCC) Cellulitis of lower extremity, unspecified laterality Hypotension, unspecified hypotension type Acute pain of left hip Pain of left femur Abnormal brain CT Nonspecific (abnormal) findings on radiological and other examination of skull and head Nondependent cocaine abuse (HCC)- Primary Nondependent cocaine abuse, unspecified Hepatic cirrhosis, unspecified hepatic cirrhosis type, unspecified whether ascites present (HCC) Acute on chronic respiratory failure with hypoxia and hypercapnia (HCC) Pulmonary emphysema, unspecified emphysema type (HCC) Essential hypertension Unspecified essential hypertension Opioid dependence with intoxication with complication (HCC) Sepsis, due to unspecified organism, unspecified whether acute organ dysfunction present (HCC) Cellulitis of lower extremity, unspecified laterality Hematoma- Primary Contusion of unspecified site Cirrhosis of liver without ascites, unspecified hepatic cirrhosis type (HCC) Opioid dependence with withdrawal (HCC) Pulmonary emphysema, unspecified emphysema type (HCC) Thrombocytopenia (HCC) Unspecified thrombocytopenia Venous stasis dermatitis of both lower extremities Atrial fibrillation with rapid ventricular response (HCC) Chronic pain syndrome Plantar ulcer of right foot, unspecified ulcer stage (HCC) Skin ulcer of left lower leg with fat layer exposed (HCC) Cirrhosis of liver without ascites, unspecified hepatic cirrhosis type (HCC) Pulmonary emphysema, unspecified emphysema type (HCC) Venous stasis dermatitis of both lower extremities Skin ulcer of left lower leg with fat layer exposed (HCC) Opioid dependence with opioid-induced disorder (HCC) Infection associated with internal right knee prosthesis, subsequent encounter Chronic pain syndrome Adrenal insufficiency (HCC) Glucocorticoid deficiency Cellulitis- Primary Cellulitis and abscess of unspecified site Cellulitis of right lower extremity Sepsis, due to unspecified organism, unspecified whether acute organ dysfunction present (HCC) Febrile illness, acute Tachycardia Unspecified tachycardia Essential hypertension Unspecified essential hypertension Chronic respiratory failure with hypoxia and hypercapnia (HCC) Uncomplicated opioid dependence (HCC) Atrial fibrillation with rapid ventricular response (HCC) Type 2 diabetes mellitus without complication, without long-term current use of insulin (HCC) Mucopurulent chronic bronchitis (HCC) Mucopurulent chronic bronchitis Alcoholic cirrhosis of liver with ascites (HCC) Venous stasis dermatitis of both lower extremities Adrenal insufficiency (HCC) Glucocorticoid deficiency Pancytopenia (HCC) Chronic diastolic congestive heart failure (HCC) Acute heart failure with preserved ejection fraction (HFpEF) (HCC)- Primary Cellulitis of lower extremity, unspecified laterality SOB (shortness of breath) Shortness of breath Congestive heart failure, unspecified HF chronicity, unspecified heart failure type (HCC) Acute heart failure with preserved ejection fraction (HFpEF) (HCC) Chronic diastolic congestive heart failure (HCC) Pancytopenia (HCC) Cellulitis of right lower extremity Foot infection Unspecified local infection of skin and subcutaneous tissue Adrenal insufficiency (HCC) 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, subsequent encounter Skin ulcer of left lower leg with fat layer exposed (HCC) Plantar ulcer of right foot, unspecified ulcer stage (HCC) Chronic pain syndrome Venous stasis dermatitis of both lower extremities Thrombocytopenia (HCC) Unspecified thrombocytopenia Hematoma Contusion of unspecified site Alcoholic cirrhosis of liver with ascites (HCC) Abnormal brain CT Nonspecific (abnormal) findings on radiological and other examination of skull and head Pain of left femur Acute pain of left hip Hypotension, unspecified hypotension type Nondependent cocaine abuse (HCC) Nondependent cocaine abuse, unspecified Leukocytosis, unspecified type Polysubstance abuse (HCC) Other, mixed, or unspecified nondependent drug abuse, unspecified Mucopurulent chronic bronchitis (HCC) Mucopurulent chronic bronchitis Type 2 diabetes mellitus without complication, without long-term current use of insulin (HCC) Morbid obesity with BMI of 40.0-44.9, adult (HCC) Atrial fibrillation with rapid ventricular response (HCC) Uncomplicated opioid dependence (HCC) Chronic respiratory failure with hypoxia and hypercapnia (HCC) Essential hypertension Unspecified essential hypertension Osteoarthritis of right knee, unspecified osteoarthritis type Acquired pes planovalgus of right foot documented in this encounter [facility] note* Diagnosis Acute exacerbation of chronic obstructive pulmonary disease (COPD) (HCC)- Primary Obstructive chronic bronchitis with exacerbation Acute respiratory failure, unspecified whether with hypoxia or hypercapnia (HCC) COPD exacerbation (HCC) Obstructive chronic bronchitis with exacerbation Cannabis abuse Nondependent cannabis abuse, unspecified Morbid obesity with BMI of 40.0-44.9, adult (HCC) Atrial fibrillation with rapid ventricular response (HCC)- Primary Community acquired pneumonia, unspecified laterality Chronic obstructive pulmonary disease, unspecified COPD type (HCC) Cerebrovascular accident (CVA), unspecified mechanism (HCC) Acute renal failure, unspecified acute renal failure type (HCC) Sepsis, due to unspecified organism, unspecified whether acute organ dysfunction present (HCC) Cellulitis of lower extremity, unspecified laterality Hypotension, unspecified hypotension type Acute pain of left hip Pain of left femur Abnormal brain CT Nonspecific (abnormal) findings on radiological and other examination of skull and head Nondependent cocaine abuse (HCC)- Primary Nondependent cocaine abuse, unspecified Hepatic cirrhosis, unspecified hepatic cirrhosis type, unspecified whether ascites present (HCC) Acute on chronic respiratory failure with hypoxia and hypercapnia (HCC) Pulmonary emphysema, unspecified emphysema type (HCC) Essential hypertension Unspecified essential hypertension Opioid dependence with intoxication with complication (HCC) Sepsis, due to unspecified organism, unspecified whether acute organ dysfunction present (HCC) Cellulitis of lower extremity, unspecified laterality Hematoma- Primary Contusion of unspecified site Cirrhosis of liver without ascites, unspecified hepatic cirrhosis type (HCC) Opioid dependence with withdrawal (HCC) Pulmonary emphysema, unspecified emphysema type (HCC) Thrombocytopenia Unspecified thrombocytopenia Venous stasis dermatitis of both lower extremities Atrial fibrillation with rapid ventricular response (HCC) Chronic pain syndrome Plantar ulcer of right foot, unspecified ulcer stage (HCC) Skin ulcer of left lower leg with fat layer exposed (HCC) Cirrhosis of liver without ascites, unspecified hepatic cirrhosis type (HCC) Pulmonary emphysema, unspecified emphysema type (HCC) Venous stasis dermatitis of both lower extremities Skin ulcer of left lower leg with fat layer exposed (HCC) Opioid dependence with opioid-induced disorder (HCC) Infection associated with internal right knee prosthesis, subsequent encounter Chronic pain syndrome Adrenal insufficiency Glucocorticoid deficiency Cellulitis- Primary Cellulitis and abscess of unspecified site Cellulitis of right lower extremity Sepsis, due to unspecified organism, unspecified whether acute organ dysfunction present (HCC) Febrile illness, acute Tachycardia Unspecified tachycardia Essential hypertension Unspecified essential hypertension Chronic respiratory failure with hypoxia and hypercapnia (HCC) Uncomplicated opioid dependence (HCC) Atrial fibrillation with rapid ventricular response (HCC) Type 2 diabetes mellitus without complication, without long-term current use of insulin (HCC) Mucopurulent chronic bronchitis (HCC) Mucopurulent chronic bronchitis Alcoholic cirrhosis of liver with ascites (HCC) Venous stasis dermatitis of both lower extremities Adrenal insufficiency Glucocorticoid deficiency Pancytopenia (HCC) Chronic diastolic congestive heart failure (HCC) Compression fracture of T7 vertebra, initial encounter (HCC)- Primary documented in this encounter [facility] note* Diagnosis Acute exacerbation of chronic obstructive pulmonary disease (COPD) (HCC)- Primary Obstructive chronic bronchitis with exacerbation Acute respiratory failure, unspecified whether with hypoxia or hypercapnia (HCC) COPD exacerbation (HCC) Obstructive chronic bronchitis with exacerbation Cannabis abuse Nondependent cannabis abuse, unspecified Morbid obesity with BMI of 40.0-44.9, adult (HCC) Atrial fibrillation with rapid ventricular response (HCC)- Primary Community acquired pneumonia, unspecified laterality Chronic obstructive pulmonary disease, unspecified COPD type (HCC) Cerebrovascular accident (CVA), unspecified mechanism (HCC) Acute renal failure, unspecified acute renal failure type (HCC) Sepsis, due to unspecified organism, unspecified whether acute organ dysfunction present (HCC) Cellulitis of lower extremity, unspecified laterality Hypotension, unspecified hypotension type Acute pain of left hip Pain of left femur Abnormal brain CT Nonspecific (abnormal) findings on radiological and other examination of skull and head Nondependent cocaine abuse (HCC)- Primary Nondependent cocaine abuse, unspecified Hepatic cirrhosis, unspecified hepatic cirrhosis type, unspecified whether ascites present (HCC) Acute on chronic respiratory failure with hypoxia and hypercapnia (HCC) Pulmonary emphysema, unspecified emphysema type (HCC) Essential hypertension Unspecified essential hypertension Opioid dependence with intoxication with complication (HCC) Sepsis, due to unspecified organism, unspecified whether acute organ dysfunction present (HCC) Cellulitis of lower extremity, unspecified laterality Hematoma- Primary Contusion of unspecified site Cirrhosis of liver without ascites, unspecified hepatic cirrhosis type (HCC) Opioid dependence with withdrawal (HCC) Pulmonary emphysema, unspecified emphysema type (HCC) Thrombocytopenia Unspecified thrombocytopenia Venous stasis dermatitis of both lower extremities Atrial fibrillation with rapid ventricular response (HCC) Chronic pain syndrome Plantar ulcer of right foot, unspecified ulcer stage (HCC) Skin ulcer of left lower leg with fat layer exposed (HCC) Cirrhosis of liver without ascites, unspecified hepatic cirrhosis type (HCC) Pulmonary emphysema, unspecified emphysema type (HCC) Venous stasis dermatitis of both lower extremities Skin ulcer of left lower leg with fat layer exposed (HCC) Opioid dependence with opioid-induced disorder (HCC) Infection associated with internal right knee prosthesis, subsequent encounter Chronic pain syndrome Adrenal insufficiency Glucocorticoid deficiency Cellulitis- Primary Cellulitis and abscess of unspecified site Cellulitis of right lower extremity Sepsis, due to unspecified organism, unspecified whether acute organ dysfunction present (HCC) Febrile illness, acute Tachycardia Unspecified tachycardia Essential hypertension Unspecified essential hypertension Chronic respiratory failure with hypoxia and hypercapnia (HCC) Uncomplicated opioid dependence (HCC) Atrial fibrillation with rapid ventricular response (HCC) Type 2 diabetes mellitus without complication, without long-term current use of insulin (HCC) Mucopurulent chronic bronchitis (HCC) Mucopurulent chronic bronchitis Alcoholic cirrhosis of liver with ascites (HCC) Venous stasis dermatitis of both lower extremities Adrenal insufficiency Glucocorticoid deficiency Pancytopenia (HCC) Chronic diastolic congestive heart failure (HCC) Acute exacerbation of chronic obstructive pulmonary disease (COPD) (HCC)- Primary Obstructive chronic bronchitis with exacerbation Acute respiratory failure with hypoxia (HCC) COPD exacerbation (HCC) Obstructive chronic bronchitis with exacerbation Cellulitis, unspecified cellulitis site Sepsis, due to unspecified organism, unspecified whether acute organ dysfunction present (HCC) Compression fracture of T7 vertebra, initial encounter (HCC) Osteoarthritis of right knee, unspecified osteoarthritis type Acute heart failure with preserved ejection fraction (HFpEF) (HCC) Chronic diastolic congestive heart failure (HCC) Hypotension, unspecified hypotension type Type 2 diabetes mellitus without complication, without long-term current use of insulin (HCC) Atrial fibrillation with rapid ventricular response (HCC) Morbid obesity with BMI of 40.0-44.9, adult (HCC) Hepatic cirrhosis, unspecified hepatic cirrhosis type, unspecified whether ascites present (HCC) Acute exacerbation of chronic obstructive pulmonary disease (COPD) (HCC) Obstructive chronic bronchitis with exacerbation Skin ulcer of left lower leg with fat layer exposed (HCC) Foot infection Unspecified local infection of skin and subcutaneous tissue documented in this encounter [facility] note* Diagnosis Acute exacerbation of chronic obstructive pulmonary disease (COPD) (HCC)- Primary Obstructive chronic bronchitis with exacerbation Acute respiratory failure, unspecified whether with hypoxia or hypercapnia (HCC) COPD exacerbation (HCC) Obstructive chronic bronchitis with exacerbation Cannabis abuse Nondependent cannabis abuse, unspecified Morbid obesity with BMI of 40.0-44.9, adult (HCC) Atrial fibrillation with rapid ventricular response (HCC)- Primary Community acquired pneumonia, unspecified laterality Chronic obstructive pulmonary disease, unspecified COPD type (HCC) Cerebrovascular accident (CVA), unspecified mechanism (HCC) Acute renal failure, unspecified acute renal failure type (HCC) Sepsis, due to unspecified organism, unspecified whether acute organ dysfunction present (HCC) Cellulitis of lower extremity, unspecified laterality Hypotension, unspecified hypotension type Acute pain of left hip Pain of left femur Abnormal brain CT Nonspecific (abnormal) findings on radiological and other examination of skull and head Nondependent cocaine abuse (HCC)- Primary Nondependent cocaine abuse, unspecified Hepatic cirrhosis, unspecified hepatic cirrhosis type, unspecified whether ascites present (HCC) Acute on chronic respiratory failure with hypoxia and hypercapnia (HCC) Pulmonary emphysema, unspecified emphysema type (HCC) Essential hypertension Unspecified essential hypertension Opioid dependence with intoxication with complication (HCC) Sepsis, due to unspecified organism, unspecified whether acute organ dysfunction present (HCC) Cellulitis of lower extremity, unspecified laterality Hematoma- Primary Contusion of unspecified site Cirrhosis of liver without ascites, unspecified hepatic cirrhosis type (HCC) Opioid dependence with withdrawal (HCC) Pulmonary emphysema, unspecified emphysema type (HCC) Thrombocytopenia Unspecified thrombocytopenia Venous stasis dermatitis of both lower extremities Atrial fibrillation with rapid ventricular response (HCC) Chronic pain syndrome Plantar ulcer of right foot, unspecified ulcer stage (HCC) Skin ulcer of left lower leg with fat layer exposed (HCC) Cirrhosis of liver without ascites, unspecified hepatic cirrhosis type (HCC) Pulmonary emphysema, unspecified emphysema type (HCC) Venous stasis dermatitis of both lower extremities Skin ulcer of left lower leg with fat layer exposed (HCC) Opioid dependence with opioid-induced disorder (HCC) Infection associated with internal right knee prosthesis, subsequent encounter Chronic pain syndrome Adrenal insufficiency Glucocorticoid deficiency Cellulitis- Primary Cellulitis and abscess of unspecified site Cellulitis of right lower extremity Sepsis, due to unspecified organism, unspecified whether acute organ dysfunction present (HCC) Febrile illness, acute Tachycardia Unspecified tachycardia Essential hypertension Unspecified essential hypertension Chronic respiratory failure with hypoxia and hypercapnia (HCC) Uncomplicated opioid dependence (HCC) Atrial fibrillation with rapid ventricular response (HCC) Type 2 diabetes mellitus without complication, without long-term current use of insulin (HCC) Mucopurulent chronic bronchitis (HCC) Mucopurulent chronic bronchitis Alcoholic cirrhosis of liver with ascites (HCC) Venous stasis dermatitis of both lower extremities Adrenal insufficiency Glucocorticoid deficiency Pancytopenia (HCC) Chronic diastolic congestive heart failure (HCC) Muscle weakness- Primary Muscle weakness (generalized) [facility] [place] [facility] Diagnosis Acute exacerbation of chronic obstructive pulmonary disease (COPD) (HCC)- Primary Obstructive chronic bronchitis with exacerbation Acute respiratory failure, unspecified whether with hypoxia or hypercapnia (HCC) COPD exacerbation (HCC) Obstructive chronic bronchitis with exacerbation Cannabis abuse Nondependent cannabis abuse, unspecified Morbid obesity with BMI of 40.0-44.9, adult (HCC) Atrial fibrillation with rapid ventricular response (HCC)- Primary Community acquired pneumonia, unspecified laterality Chronic obstructive pulmonary disease, unspecified COPD type (HCC) Cerebrovascular accident (CVA), unspecified mechanism (HCC) Acute renal failure, unspecified acute renal failure type (HCC) Sepsis, due to unspecified organism, unspecified whether acute organ dysfunction present (HCC) Cellulitis of lower extremity, unspecified laterality Hypotension, unspecified hypotension type Acute pain of left hip Pain of left femur Abnormal brain CT Nonspecific (abnormal) findings on radiological and other examination of skull and head Nondependent cocaine abuse (HCC)- Primary Nondependent cocaine abuse, unspecified Hepatic cirrhosis, unspecified hepatic cirrhosis type, unspecified whether ascites present (HCC) Acute on chronic respiratory failure with hypoxia and hypercapnia (HCC) Pulmonary emphysema, unspecified emphysema type (HCC) Essential hypertension Unspecified essential hypertension Opioid dependence with intoxication with complication (HCC) Sepsis, due to unspecified organism, unspecified whether acute organ dysfunction present (HCC) Cellulitis of lower extremity, unspecified laterality Hematoma- Primary Contusion of unspecified site Cirrhosis of liver without ascites, unspecified hepatic cirrhosis type (HCC) Opioid dependence with withdrawal (HCC) Pulmonary emphysema, unspecified emphysema type (HCC) Thrombocytopenia Unspecified thrombocytopenia Venous stasis dermatitis of both lower extremities Atrial fibrillation with rapid ventricular response (HCC) Chronic pain syndrome Plantar ulcer of right foot, unspecified ulcer stage (HCC) Skin ulcer of left lower leg with fat layer exposed (HCC) Cirrhosis of liver without ascites, unspecified hepatic cirrhosis type (HCC) Pulmonary emphysema, unspecified emphysema type (HCC) Venous stasis dermatitis of both lower extremities Skin ulcer of left lower leg with fat layer exposed (HCC) Opioid dependence with opioid-induced disorder (HCC) Infection associated with internal right knee prosthesis, subsequent encounter Chronic pain syndrome Adrenal insufficiency Glucocorticoid deficiency Cellulitis- Primary Cellulitis and abscess of unspecified site Cellulitis of right lower extremity Sepsis, due to unspecified organism, unspecified whether acute organ dysfunction present (HCC) Febrile illness, acute Tachycardia Unspecified tachycardia Essential hypertension Unspecified essential hypertension Chronic respiratory failure with hypoxia and hypercapnia (HCC) Uncomplicated opioid dependence (HCC) Atrial fibrillation with rapid ventricular response (HCC) Type 2 diabetes mellitus without complication, without long-term current use of insulin (HCC) Mucopurulent chronic bronchitis (HCC) Mucopurulent chronic bronchitis Alcoholic cirrhosis of liver with ascites (HCC) Venous stasis dermatitis of both lower extremities Adrenal insufficiency Glucocorticoid deficiency Pancytopenia (HCC) Chronic diastolic congestive heart failure (HCC) Skin ulcer of right lower leg with fat layer exposed (HCC)- Primary Skin ulcer of left lower leg with fat layer exposed (HCC) Skin ulcer of plantar aspect of right foot with necrosis of muscle (HCC) documented in this encounter [facility] note* Diagnosis Acute exacerbation of chronic obstructive pulmonary disease (COPD) (HCC)- Primary Obstructive chronic bronchitis with exacerbation Acute respiratory failure, unspecified whether with hypoxia or hypercapnia (HCC) COPD exacerbation (HCC) Obstructive chronic bronchitis with exacerbation Cannabis abuse Nondependent cannabis abuse, unspecified Morbid obesity with BMI of 40.0-44.9, adult (HCC) Atrial fibrillation with rapid ventricular response (HCC)- Primary Community acquired pneumonia, unspecified laterality Chronic obstructive pulmonary disease, unspecified COPD type (HCC) Cerebrovascular accident (CVA), unspecified mechanism (HCC) Acute renal failure, unspecified acute renal failure type (HCC) Sepsis, due to unspecified organism, unspecified whether acute organ dysfunction present (HCC) Cellulitis of lower extremity, unspecified laterality Hypotension, unspecified hypotension type Acute pain of left hip Pain of left femur Abnormal brain CT Nonspecific (abnormal) findings on radiological and other examination of skull and head Nondependent cocaine abuse (HCC)- Primary Nondependent cocaine abuse, unspecified Hepatic cirrhosis, unspecified hepatic cirrhosis type, unspecified whether ascites present (HCC) Acute on chronic respiratory failure with hypoxia and hypercapnia (HCC) Pulmonary emphysema, unspecified emphysema type (HCC) Essential hypertension Unspecified essential hypertension Opioid dependence with intoxication with complication (HCC) Sepsis, due to unspecified organism, unspecified whether acute organ dysfunction present (HCC) Cellulitis of lower extremity, unspecified laterality Hematoma- Primary Contusion of unspecified site Cirrhosis of liver without ascites, unspecified hepatic cirrhosis type (HCC) Opioid dependence with withdrawal (HCC) Pulmonary emphysema, unspecified emphysema type (HCC) Thrombocytopenia Unspecified thrombocytopenia Venous stasis dermatitis of both lower extremities Atrial fibrillation with rapid ventricular response (HCC) Chronic pain syndrome Plantar ulcer of right foot, unspecified ulcer stage (HCC) Skin ulcer of left lower leg with fat layer exposed (HCC) Cirrhosis of liver without ascites, unspecified hepatic cirrhosis type (HCC) Pulmonary emphysema, unspecified emphysema type (HCC) Venous stasis dermatitis of both lower extremities Skin ulcer of left lower leg with fat layer exposed (HCC) Opioid dependence with opioid-induced disorder (HCC) Infection associated with internal right knee prosthesis, subsequent encounter Chronic pain syndrome Adrenal insufficiency Glucocorticoid deficiency Cellulitis- Primary Cellulitis and abscess of unspecified site Cellulitis of right lower extremity Sepsis, due to unspecified organism, unspecified whether acute organ dysfunction present (HCC) Febrile illness, acute Tachycardia Unspecified tachycardia Essential hypertension Unspecified essential hypertension Chronic respiratory failure with hypoxia and hypercapnia (HCC) Uncomplicated opioid dependence (HCC) Atrial fibrillation with rapid ventricular response (HCC) Type 2 diabetes mellitus without complication, without long-term current use of insulin (HCC) Mucopurulent chronic bronchitis (HCC) Mucopurulent chronic bronchitis Alcoholic cirrhosis of liver with ascites (HCC) Venous stasis dermatitis of both lower extremities Adrenal insufficiency Glucocorticoid deficiency Pancytopenia (HCC) Chronic diastolic congestive heart failure (HCC) Disease of vein- Primary Unspecified circulatory system disorder [facility] [place] [facility]* Diagnosis Acute exacerbation of chronic obstructive pulmonary disease (COPD) (HCC)- Primary Obstructive chronic bronchitis with exacerbation Acute respiratory failure, unspecified whether with hypoxia or hypercapnia (HCC) COPD exacerbation (HCC) Obstructive chronic bronchitis with exacerbation Cannabis abuse Nondependent cannabis abuse, unspecified Morbid obesity with BMI of 40.0-44.9, adult (HCC) Atrial fibrillation with rapid ventricular response (HCC)- Primary Community acquired pneumonia, unspecified laterality Chronic obstructive pulmonary disease, unspecified COPD type (HCC) Cerebrovascular accident (CVA), unspecified mechanism (HCC) Acute renal failure, unspecified acute renal failure type (HCC) Sepsis, due to unspecified organism, unspecified whether acute organ dysfunction present (HCC) Cellulitis of lower extremity, unspecified laterality Hypotension, unspecified hypotension type Acute pain of left hip Pain of left femur Abnormal brain CT Nonspecific (abnormal) findings on radiological and other examination of skull and head Nondependent cocaine abuse (HCC)- Primary Nondependent cocaine abuse, unspecified Hepatic cirrhosis, unspecified hepatic cirrhosis type, unspecified whether ascites present (HCC) Acute on chronic respiratory failure with hypoxia and hypercapnia (HCC) Pulmonary emphysema, unspecified emphysema type (HCC) Essential hypertension Unspecified essential hypertension Opioid dependence with intoxication with complication (HCC) Sepsis, due to unspecified organism, unspecified whether acute organ dysfunction present (HCC) Cellulitis of lower extremity, unspecified laterality Hematoma- Primary Contusion of unspecified site Cirrhosis of liver without ascites, unspecified hepatic cirrhosis type (HCC) Opioid dependence with withdrawal (HCC) Pulmonary emphysema, unspecified emphysema type (HCC) Thrombocytopenia Unspecified thrombocytopenia Venous stasis dermatitis of both lower extremities Atrial fibrillation with rapid ventricular response (HCC) Chronic pain syndrome Plantar ulcer of right foot, unspecified ulcer stage (HCC) Skin ulcer of left lower leg with fat layer exposed (HCC) Cirrhosis of liver without ascites, unspecified hepatic cirrhosis type (HCC) Pulmonary emphysema, unspecified emphysema type (HCC) Venous stasis dermatitis of both lower extremities Skin ulcer of left lower leg with fat layer exposed (HCC) Opioid dependence with opioid-induced disorder (HCC) Infection associated with internal right knee prosthesis, subsequent encounter Chronic pain syndrome Adrenal insufficiency Glucocorticoid deficiency Cellulitis- Primary Cellulitis and abscess of unspecified site Cellulitis of right lower extremity Sepsis, due to unspecified organism, unspecified whether acute organ dysfunction present (HCC) Febrile illness, acute Tachycardia Unspecified tachycardia Essential hypertension Unspecified essential hypertension Chronic respiratory failure with hypoxia and hypercapnia (HCC) Uncomplicated opioid dependence (HCC) Atrial fibrillation with rapid ventricular response (HCC) Type 2 diabetes mellitus without complication, without long-term current use of insulin (HCC) Mucopurulent chronic bronchitis (HCC) Mucopurulent chronic bronchitis Alcoholic cirrhosis of liver with ascites (HCC) Venous stasis dermatitis of both lower extremities Adrenal insufficiency Glucocorticoid deficiency Pancytopenia (HCC) Chronic diastolic congestive heart failure (HCC) Skin ulcer of plantar aspect of right foot with necrosis of muscle (HCC)- Primary documented in this encounter [facility] note* Diagnosis Acute exacerbation of chronic obstructive pulmonary disease (COPD) (HCC)- Primary Obstructive chronic bronchitis with exacerbation Acute respiratory failure, unspecified whether with hypoxia or hypercapnia (HCC) COPD exacerbation (HCC) Obstructive chronic bronchitis with exacerbation Cannabis abuse Nondependent cannabis abuse, unspecified Morbid obesity with BMI of 40.0-44.9, adult (HCC) Atrial fibrillation with rapid ventricular response (HCC)- Primary Community acquired pneumonia, unspecified laterality Chronic obstructive pulmonary disease, unspecified COPD type (HCC) Cerebrovascular accident (CVA), unspecified mechanism (HCC) Acute renal failure, unspecified acute renal failure type (HCC) Sepsis, due to unspecified organism, unspecified whether acute organ dysfunction present (HCC) Cellulitis of lower extremity, unspecified laterality Hypotension, unspecified hypotension type Acute pain of left hip Pain of left femur Abnormal brain CT Nonspecific (abnormal) findings on radiological and other examination of skull and head Nondependent cocaine abuse (HCC)- Primary Nondependent cocaine abuse, unspecified Hepatic cirrhosis, unspecified hepatic cirrhosis type, unspecified whether ascites present (HCC) Acute on chronic respiratory failure with hypoxia and hypercapnia (HCC) Pulmonary emphysema, unspecified emphysema type (HCC) Essential hypertension Unspecified essential hypertension Opioid dependence with intoxication with complication (HCC) Sepsis, due to unspecified organism, unspecified whether acute organ dysfunction present (HCC) Cellulitis of lower extremity, unspecified laterality Hematoma- Primary Contusion of unspecified site Cirrhosis of liver without ascites, unspecified hepatic cirrhosis type (HCC) Opioid dependence with withdrawal (HCC) Pulmonary emphysema, unspecified emphysema type (HCC) Thrombocytopenia Unspecified thrombocytopenia Venous stasis dermatitis of both lower extremities Atrial fibrillation with rapid ventricular response (HCC) Chronic pain syndrome Plantar ulcer of right foot, unspecified ulcer stage (HCC) Skin ulcer of left lower leg with fat layer exposed (HCC) Cirrhosis of liver without ascites, unspecified hepatic cirrhosis type (HCC) Pulmonary emphysema, unspecified emphysema type (HCC) Venous stasis dermatitis of both lower extremities Skin ulcer of left lower leg with fat layer exposed (HCC) Opioid dependence with opioid-induced disorder (HCC) Infection associated with internal right knee prosthesis, subsequent encounter Chronic pain syndrome Adrenal insufficiency Glucocorticoid deficiency Cellulitis- Primary Cellulitis and abscess of unspecified site Cellulitis of right lower extremity Sepsis, due to unspecified organism, unspecified whether acute organ dysfunction present (HCC) Febrile illness, acute Tachycardia Unspecified tachycardia Essential hypertension Unspecified essential hypertension Chronic respiratory failure with hypoxia and hypercapnia (HCC) Uncomplicated opioid dependence (HCC) Atrial fibrillation with rapid ventricular response (HCC) Type 2 diabetes mellitus without complication, without long-term current use of insulin (HCC) Mucopurulent chronic bronchitis (HCC) Mucopurulent chronic bronchitis Alcoholic cirrhosis of liver with ascites (HCC) Venous stasis dermatitis of both lower extremities Adrenal insufficiency Glucocorticoid deficiency Pancytopenia (HCC) Chronic diastolic congestive heart failure (HCC) PVD (peripheral vascular disease)- Primary Unspecified peripheral vascular disease [facility] Diagnosis Acute exacerbation of chronic obstructive pulmonary disease (COPD) (HCC)- Primary Obstructive chronic bronchitis with exacerbation Acute respiratory failure, unspecified whether with hypoxia or hypercapnia (HCC) COPD exacerbation (HCC) Obstructive chronic bronchitis with exacerbation Cannabis abuse Nondependent cannabis abuse, unspecified Atrial fibrillation with rapid ventricular response (HCC)- Primary Community acquired pneumonia, unspecified laterality Chronic obstructive pulmonary disease, unspecified COPD type (HCC) Cerebrovascular accident (CVA), unspecified mechanism (HCC) Acute renal failure, unspecified acute renal failure type (HCC) Sepsis, due to unspecified organism, unspecified whether acute organ dysfunction present (HCC) Cellulitis of lower extremity, unspecified laterality Hypotension, unspecified hypotension type Acute pain of left hip Pain of left femur Abnormal brain CT Nonspecific (abnormal) findings on radiological and other examination of skull and head Nondependent cocaine abuse (HCC)- Primary Nondependent cocaine abuse, unspecified Hepatic cirrhosis, unspecified hepatic cirrhosis type, unspecified whether ascites present (HCC) Acute on chronic respiratory failure with hypoxia and hypercapnia (HCC) Pulmonary emphysema, unspecified emphysema type (HCC) Essential hypertension Unspecified essential hypertension Opioid dependence with intoxication with complication (HCC) Sepsis, due to unspecified organism, unspecified whether acute organ dysfunction present (HCC) Cellulitis of lower extremity, unspecified laterality Hematoma- Primary Contusion of unspecified site Cirrhosis of liver without ascites, unspecified hepatic cirrhosis type (HCC) Opioid dependence with withdrawal (HCC) Pulmonary emphysema, unspecified emphysema type (HCC) Thrombocytopenia Unspecified thrombocytopenia Venous stasis dermatitis of both lower extremities Atrial fibrillation with rapid ventricular response (HCC) Chronic pain syndrome Plantar ulcer of right foot, unspecified ulcer stage (HCC) Skin ulcer of left lower leg with fat layer exposed (HCC) Cirrhosis of liver without ascites, unspecified hepatic cirrhosis type (HCC) Pulmonary emphysema, unspecified emphysema type (HCC) Venous stasis dermatitis of both lower extremities Skin ulcer of left lower leg with fat layer exposed (HCC) Opioid dependence with opioid-induced disorder (HCC) Infection associated with internal right knee prosthesis, subsequent encounter Chronic pain syndrome Adrenal insufficiency Glucocorticoid deficiency Cellulitis- Primary Cellulitis and abscess of unspecified site Cellulitis of right lower extremity Sepsis, due to unspecified organism, unspecified whether acute organ dysfunction present (HCC) Febrile illness, acute Tachycardia Unspecified tachycardia Essential hypertension Unspecified essential hypertension Chronic respiratory failure with hypoxia and hypercapnia (HCC) Uncomplicated opioid dependence (HCC) Atrial fibrillation with rapid ventricular response (HCC) Type 2 diabetes mellitus without complication, without long-term current use of insulin (HCC) Mucopurulent chronic bronchitis (HCC) Mucopurulent chronic bronchitis Alcoholic cirrhosis of liver with ascites (HCC) Venous stasis dermatitis of both lower extremities Adrenal insufficiency Glucocorticoid deficiency Pancytopenia (HCC) Chronic diastolic congestive heart failure (HCC) Venous congestion- Primary Edema of both lower extremities Pulmonary hypertension (HCC) Other chronic pulmonary heart diseases Skin ulcer of left lower leg, limited to breakdown of skin (HCC) Obesity (BMI 30-39.9) documented in this encounter [facility] note* Diagnosis Acute exacerbation of chronic obstructive pulmonary disease (COPD) (HCC)- Primary Obstructive chronic bronchitis with exacerbation Acute respiratory failure, unspecified whether with hypoxia or hypercapnia (HCC) COPD exacerbation (HCC) Obstructive chronic bronchitis with exacerbation Cannabis abuse Nondependent cannabis abuse, unspecified Atrial fibrillation with rapid ventricular response (HCC)- Primary Community acquired pneumonia, unspecified laterality Chronic obstructive pulmonary disease, unspecified COPD type (HCC) Cerebrovascular accident (CVA), unspecified mechanism (HCC) Acute renal failure, unspecified acute renal failure type (HCC) Sepsis, due to unspecified organism, unspecified whether acute organ dysfunction present (HCC) Cellulitis of lower extremity, unspecified laterality Hypotension, unspecified hypotension type Acute pain of left hip Pain of left femur Abnormal brain CT Nonspecific (abnormal) findings on radiological and other examination of skull and head Nondependent cocaine abuse (HCC)- Primary Nondependent cocaine abuse, unspecified Hepatic cirrhosis, unspecified hepatic cirrhosis type, unspecified whether ascites present (HCC) Acute on chronic respiratory failure with hypoxia and hypercapnia (HCC) Pulmonary emphysema, unspecified emphysema type (HCC) Essential hypertension Unspecified essential hypertension Opioid dependence with intoxication with complication (HCC) Sepsis, due to unspecified organism, unspecified whether acute organ dysfunction present (HCC) Cellulitis of lower extremity, unspecified laterality Hematoma- Primary Contusion of unspecified site Cirrhosis of liver without ascites, unspecified hepatic cirrhosis type (HCC) Opioid dependence with withdrawal (HCC) Pulmonary emphysema, unspecified emphysema type (HCC) Thrombocytopenia Unspecified thrombocytopenia Venous stasis dermatitis of both lower extremities Atrial fibrillation with rapid ventricular response (HCC) Chronic pain syndrome Plantar ulcer of right foot, unspecified ulcer stage (HCC) Skin ulcer of left lower leg with fat layer exposed (HCC) Cirrhosis of liver without ascites, unspecified hepatic cirrhosis type (HCC) Pulmonary emphysema, unspecified emphysema type (HCC) Venous stasis dermatitis of both lower extremities Skin ulcer of left lower leg with fat layer exposed (HCC) Opioid dependence with opioid-induced disorder (HCC) Infection associated with internal right knee prosthesis, subsequent encounter Chronic pain syndrome Adrenal insufficiency Glucocorticoid deficiency Cellulitis- Primary Cellulitis and abscess of unspecified site Cellulitis of right lower extremity Sepsis, due to unspecified organism, unspecified whether acute organ dysfunction present (HCC) Febrile illness, acute Tachycardia Unspecified tachycardia Essential hypertension Unspecified essential hypertension Chronic respiratory failure with hypoxia and hypercapnia (HCC) Uncomplicated opioid dependence (HCC) Atrial fibrillation with rapid ventricular response (HCC) Type 2 diabetes mellitus without complication, without long-term current use of insulin (HCC) Mucopurulent chronic bronchitis (HCC) Mucopurulent chronic bronchitis Alcoholic cirrhosis of liver with ascites (HCC) Venous stasis dermatitis of both lower extremities Adrenal insufficiency Glucocorticoid deficiency Pancytopenia (HCC) Chronic diastolic congestive heart failure (HCC) Edema of both lower extremities [R60.0]- Primary [facility] [place] [facility]* Diagnosis Acute exacerbation of chronic obstructive pulmonary disease (COPD) (HCC)- Primary Obstructive chronic bronchitis with exacerbation Acute respiratory failure, unspecified whether with hypoxia or hypercapnia (HCC) COPD exacerbation (HCC) Obstructive chronic bronchitis with exacerbation Cannabis abuse Nondependent cannabis abuse, unspecified Atrial fibrillation with rapid ventricular response (HCC)- Primary Community acquired pneumonia, unspecified laterality Chronic obstructive pulmonary disease, unspecified COPD type (HCC) Cerebrovascular accident (CVA), unspecified mechanism (HCC) Acute renal failure, unspecified acute renal failure type (HCC) Sepsis, due to unspecified organism, unspecified whether acute organ dysfunction present (HCC) Cellulitis of lower extremity, unspecified laterality Hypotension, unspecified hypotension type Acute pain of left hip Pain of left femur Abnormal brain CT Nonspecific (abnormal) findings on radiological and other examination of skull and head Nondependent cocaine abuse (HCC)- Primary Nondependent cocaine abuse, unspecified Hepatic cirrhosis, unspecified hepatic cirrhosis type, unspecified whether ascites present (HCC) Acute on chronic respiratory failure with hypoxia and hypercapnia (HCC) Pulmonary emphysema, unspecified emphysema type (HCC) Essential hypertension Unspecified essential hypertension Opioid dependence with intoxication with complication (HCC) Sepsis, due to unspecified organism, unspecified whether acute organ dysfunction present (HCC) Cellulitis of lower extremity, unspecified laterality Hematoma- Primary Contusion of unspecified site Cirrhosis of liver without ascites, unspecified hepatic cirrhosis type (HCC) Opioid dependence with withdrawal (HCC) Pulmonary emphysema, unspecified emphysema type (HCC) Thrombocytopenia Unspecified thrombocytopenia Venous stasis dermatitis of both lower extremities Atrial fibrillation with rapid ventricular response (HCC) Chronic pain syndrome Plantar ulcer of right foot, unspecified ulcer stage (HCC) Skin ulcer of left lower leg with fat layer exposed (HCC) Cirrhosis of liver without ascites, unspecified hepatic cirrhosis type (HCC) Pulmonary emphysema, unspecified emphysema type (HCC) Venous stasis dermatitis of both lower extremities Skin ulcer of left lower leg with fat layer exposed (HCC) Opioid dependence with opioid-induced disorder (HCC) Infection associated with internal right knee prosthesis, subsequent encounter Chronic pain syndrome Adrenal insufficiency Glucocorticoid deficiency Cellulitis- Primary Cellulitis and abscess of unspecified site Cellulitis of right lower extremity Sepsis, due to unspecified organism, unspecified whether acute organ dysfunction present (HCC) Febrile illness, acute Tachycardia Unspecified tachycardia Essential hypertension Unspecified essential hypertension Chronic respiratory failure with hypoxia and hypercapnia (HCC) Uncomplicated opioid dependence (HCC) Atrial fibrillation with rapid ventricular response (HCC) Type 2 diabetes mellitus without complication, without long-term current use of insulin (HCC) Mucopurulent chronic bronchitis (HCC) Mucopurulent chronic bronchitis Alcoholic cirrhosis of liver with ascites (HCC) Venous stasis dermatitis of both lower extremities Adrenal insufficiency Glucocorticoid deficiency Pancytopenia (HCC) Chronic diastolic congestive heart failure (HCC) Generalized weakness- Primary Adult failure to thrive Congestive heart failure, unspecified HF chronicity, unspecified heart failure type (HCC) documented in this encounter [facility] note* Diagnosis Acute exacerbation of chronic obstructive pulmonary disease (COPD) (HCC)- Primary Obstructive chronic bronchitis with exacerbation Acute respiratory failure, unspecified whether with hypoxia or hypercapnia (HCC) COPD exacerbation (HCC) Obstructive chronic bronchitis with exacerbation Cannabis abuse Nondependent cannabis abuse, unspecified Atrial fibrillation with rapid ventricular response (HCC)- Primary Community acquired pneumonia, unspecified laterality Chronic obstructive pulmonary disease, unspecified COPD type (HCC) Cerebrovascular accident (CVA), unspecified mechanism (HCC) Acute renal failure, unspecified acute renal failure type (HCC) Sepsis, due to unspecified organism, unspecified whether acute organ dysfunction present (HCC) Cellulitis of lower extremity, unspecified laterality Hypotension, unspecified hypotension type Acute pain of left hip Pain of left femur Abnormal brain CT Nonspecific (abnormal) findings on radiological and other examination of skull and head Nondependent cocaine abuse (HCC)- Primary Nondependent cocaine abuse, unspecified Hepatic cirrhosis, unspecified hepatic cirrhosis type, unspecified whether ascites present (HCC) Acute on chronic respiratory failure with hypoxia and hypercapnia (HCC) Pulmonary emphysema, unspecified emphysema type (HCC) Essential hypertension Unspecified essential hypertension Opioid dependence with intoxication with complication (HCC) Sepsis, due to unspecified organism, unspecified whether acute organ dysfunction present (HCC) Cellulitis of lower extremity, unspecified laterality Hematoma- Primary Contusion of unspecified site Cirrhosis of liver without ascites, unspecified hepatic cirrhosis type (HCC) Opioid dependence with withdrawal (HCC) Pulmonary emphysema, unspecified emphysema type (HCC) Thrombocytopenia Unspecified thrombocytopenia Venous stasis dermatitis of both lower extremities Atrial fibrillation with rapid ventricular response (HCC) Chronic pain syndrome Plantar ulcer of right foot, unspecified ulcer stage (HCC) Skin ulcer of left lower leg with fat layer exposed (HCC) Cirrhosis of liver without ascites, unspecified hepatic cirrhosis type (HCC) Pulmonary emphysema, unspecified emphysema type (HCC) Venous stasis dermatitis of both lower extremities Skin ulcer of left lower leg with fat layer exposed (HCC) Opioid dependence with opioid-induced disorder (HCC) Infection associated with internal right knee prosthesis, subsequent encounter Chronic pain syndrome Adrenal insufficiency Glucocorticoid deficiency Cellulitis- Primary Cellulitis and abscess of unspecified site Cellulitis of right lower extremity Sepsis, due to unspecified organism, unspecified whether acute organ dysfunction present (HCC) Febrile illness, acute Tachycardia Unspecified tachycardia Essential hypertension Unspecified essential hypertension Chronic respiratory failure with hypoxia and hypercapnia (HCC) Uncomplicated opioid dependence (HCC) Atrial fibrillation with rapid ventricular response (HCC) Type 2 diabetes mellitus without complication, without long-term current use of insulin (HCC) Mucopurulent chronic bronchitis (HCC) Mucopurulent chronic bronchitis Alcoholic cirrhosis of liver with ascites (HCC) Venous stasis dermatitis of both lower extremities Adrenal insufficiency Glucocorticoid deficiency Pancytopenia (HCC) Chronic diastolic congestive heart failure (HCC) Atherosclerosis of [place] artery of lower extremity with ulceration, unspecified laterality, unspecified ulceration site (HCC)- Primary documented in this encounter [facility]* Diagnosis Acute exacerbation of chronic obstructive pulmonary disease (COPD) (HCC)- Primary Obstructive chronic bronchitis with exacerbation Acute respiratory failure, unspecified whether with hypoxia or hypercapnia (HCC) COPD exacerbation (HCC) Obstructive chronic bronchitis with exacerbation Cannabis abuse Nondependent cannabis abuse, unspecified Atrial fibrillation with rapid ventricular response (HCC)- Primary Community acquired pneumonia, unspecified laterality Chronic obstructive pulmonary disease, unspecified COPD type (HCC) Cerebrovascular accident (CVA), unspecified mechanism (HCC) Acute renal failure, unspecified acute renal failure type (HCC) Sepsis, due to unspecified organism, unspecified whether acute organ dysfunction present (HCC) Cellulitis of lower extremity, unspecified laterality Hypotension, unspecified hypotension type Acute pain of left hip Pain of left femur Abnormal brain CT Nonspecific (abnormal) findings on radiological and other examination of skull and head Nondependent cocaine abuse (HCC)- Primary Nondependent cocaine abuse, unspecified Hepatic cirrhosis, unspecified hepatic cirrhosis type, unspecified whether ascites present (HCC) Acute on chronic respiratory failure with hypoxia and hypercapnia (HCC) Pulmonary emphysema, unspecified emphysema type (HCC) Essential hypertension Unspecified essential hypertension Opioid dependence with intoxication with complication (HCC) Sepsis, due to unspecified organism, unspecified whether acute organ dysfunction present (HCC) Cellulitis of lower extremity, unspecified laterality Hematoma- Primary Contusion of unspecified site Cirrhosis of liver without ascites, unspecified hepatic cirrhosis type (HCC) Opioid dependence with withdrawal (HCC) Pulmonary emphysema, unspecified emphysema type (HCC) Thrombocytopenia Unspecified thrombocytopenia Venous stasis dermatitis of both lower extremities Atrial fibrillation with rapid ventricular response (HCC) Chronic pain syndrome Plantar ulcer of right foot, unspecified ulcer stage (HCC) Skin ulcer of left lower leg with fat layer exposed (HCC) Cirrhosis of liver without ascites, unspecified hepatic cirrhosis type (HCC) Pulmonary emphysema, unspecified emphysema type (HCC) Venous stasis dermatitis of both lower extremities Skin ulcer of left lower leg with fat layer exposed (HCC) Opioid dependence with opioid-induced disorder (HCC) Infection associated with internal right knee prosthesis, subsequent encounter Chronic pain syndrome Adrenal insufficiency Glucocorticoid deficiency Cellulitis- Primary Cellulitis and abscess of unspecified site Cellulitis of right lower extremity Sepsis, due to unspecified organism, unspecified whether acute organ dysfunction present (HCC) Febrile illness, acute Tachycardia Unspecified tachycardia Essential hypertension Unspecified essential hypertension Chronic respiratory failure with hypoxia and hypercapnia (HCC) Uncomplicated opioid dependence (HCC) Atrial fibrillation with rapid ventricular response (HCC) Type 2 diabetes mellitus without complication, without long-term current use of insulin (HCC) Mucopurulent chronic bronchitis (HCC) Mucopurulent chronic bronchitis Alcoholic cirrhosis of liver with ascites (HCC) Venous stasis dermatitis of both lower extremities Adrenal insufficiency Glucocorticoid deficiency Pancytopenia (HCC) Chronic diastolic congestive heart failure (HCC) Effusion of right knee- Primary Synovitis Unspecified synovitis and tenosynovitis Abscess of knee, right History of total right knee replacement documented in this encounter [facility] note* Diagnosis Acute exacerbation of chronic obstructive pulmonary disease (COPD) (HCC)- Primary Obstructive chronic bronchitis with exacerbation Acute respiratory failure, unspecified whether with hypoxia or hypercapnia (HCC) COPD exacerbation (HCC) Obstructive chronic bronchitis with exacerbation Cannabis abuse Nondependent cannabis abuse, unspecified Atrial fibrillation with rapid ventricular response (HCC)- Primary Community acquired pneumonia, unspecified laterality Chronic obstructive pulmonary disease, unspecified COPD type (HCC) Cerebrovascular accident (CVA), unspecified mechanism (HCC) Acute renal failure, unspecified acute renal failure type (HCC) Sepsis, due to unspecified organism, unspecified whether acute organ dysfunction present (HCC) Cellulitis of lower extremity, unspecified laterality Hypotension, unspecified hypotension type Acute pain of left hip Pain of left femur Abnormal brain CT Nonspecific (abnormal) findings on radiological and other examination of skull and head Nondependent cocaine abuse (HCC)- Primary Nondependent cocaine abuse, unspecified Hepatic cirrhosis, unspecified hepatic cirrhosis type, unspecified whether ascites present (HCC) Acute on chronic respiratory failure with hypoxia and hypercapnia (HCC) Pulmonary emphysema, unspecified emphysema type (HCC) Essential hypertension Unspecified essential hypertension Opioid dependence with intoxication with complication (HCC) Sepsis, due to unspecified organism, unspecified whether acute organ dysfunction present (HCC) Cellulitis of lower extremity, unspecified laterality Hematoma- Primary Contusion of unspecified site Cirrhosis of liver without ascites, unspecified hepatic cirrhosis type (HCC) Opioid dependence with withdrawal (HCC) Pulmonary emphysema, unspecified emphysema type (HCC) Thrombocytopenia Unspecified thrombocytopenia Venous stasis dermatitis of both lower extremities Atrial fibrillation with rapid ventricular response (HCC) Chronic pain syndrome Plantar ulcer of right foot, unspecified ulcer stage (HCC) Skin ulcer of left lower leg with fat layer exposed (HCC) Cirrhosis of liver without ascites, unspecified hepatic cirrhosis type (HCC) Pulmonary emphysema, unspecified emphysema type (HCC) Venous stasis dermatitis of both lower extremities Skin ulcer of left lower leg with fat layer exposed (HCC) Opioid dependence with opioid-induced disorder (HCC) Infection associated with internal right knee prosthesis, subsequent encounter Chronic pain syndrome Adrenal insufficiency Glucocorticoid deficiency Cellulitis- Primary Cellulitis and abscess of unspecified site Cellulitis of right lower extremity Sepsis, due to unspecified organism, unspecified whether acute organ dysfunction present (HCC) Febrile illness, acute Tachycardia Unspecified tachycardia Essential hypertension Unspecified essential hypertension Chronic respiratory failure with hypoxia and hypercapnia (HCC) Uncomplicated opioid dependence (HCC) Atrial fibrillation with rapid ventricular response (HCC) Type 2 diabetes mellitus without complication, without long-term current use of insulin (HCC) Mucopurulent chronic bronchitis (HCC) Mucopurulent chronic bronchitis Alcoholic cirrhosis of liver with ascites (HCC) Venous stasis dermatitis of both lower extremities Adrenal insufficiency Glucocorticoid deficiency Pancytopenia (HCC) Chronic diastolic congestive heart failure (HCC) Effusion of right knee- Primary Synovitis Unspecified synovitis and tenosynovitis Abscess of knee, right History of total right knee replacement documented in this encounter [facility] note* Diagnosis Acute exacerbation of chronic obstructive pulmonary disease (COPD) (HCC)- Primary Obstructive chronic bronchitis with exacerbation Acute respiratory failure, unspecified whether with hypoxia or hypercapnia (HCC) COPD exacerbation (HCC) Obstructive chronic bronchitis with exacerbation Cannabis abuse Nondependent cannabis abuse, unspecified Atrial fibrillation with rapid ventricular response (HCC)- Primary Community acquired pneumonia, unspecified laterality Chronic obstructive pulmonary disease, unspecified COPD type (HCC) Cerebrovascular accident (CVA), unspecified mechanism (HCC) Acute renal failure, unspecified acute renal failure type (HCC) Sepsis, due to unspecified organism, unspecified whether acute organ dysfunction present (HCC) Cellulitis of lower extremity, unspecified laterality Hypotension, unspecified hypotension type Acute pain of left hip Pain of left femur Abnormal brain CT Nonspecific (abnormal) findings on radiological and other examination of skull and head Nondependent cocaine abuse (HCC)- Primary Nondependent cocaine abuse, unspecified Hepatic cirrhosis, unspecified hepatic cirrhosis type, unspecified whether ascites present (HCC) Acute on chronic respiratory failure with hypoxia and hypercapnia (HCC) Pulmonary emphysema, unspecified emphysema type (HCC) Essential hypertension Unspecified essential hypertension Opioid dependence with intoxication with complication (HCC) Sepsis, due to unspecified organism, unspecified whether acute organ dysfunction present (HCC) Cellulitis of lower extremity, unspecified laterality Hematoma- Primary Contusion of unspecified site Cirrhosis of liver without ascites, unspecified hepatic cirrhosis type (HCC) Opioid dependence with withdrawal (HCC) Pulmonary emphysema, unspecified emphysema type (HCC) Thrombocytopenia Unspecified thrombocytopenia Venous stasis dermatitis of both lower extremities Atrial fibrillation with rapid ventricular response (HCC) Chronic pain syndrome Plantar ulcer of right foot, unspecified ulcer stage (HCC) Skin ulcer of left lower leg with fat layer exposed (HCC) Cirrhosis of liver without ascites, unspecified hepatic cirrhosis type (HCC) Pulmonary emphysema, unspecified emphysema type (HCC) Venous stasis dermatitis of both lower extremities Skin ulcer of left lower leg with fat layer exposed (HCC) Opioid dependence with opioid-induced disorder (HCC) Infection associated with internal right knee prosthesis, subsequent encounter Chronic pain syndrome Adrenal insufficiency Glucocorticoid deficiency Cellulitis- Primary Cellulitis and abscess of unspecified site Cellulitis of right lower extremity Sepsis, due to unspecified organism, unspecified whether acute organ dysfunction present (HCC) Febrile illness, acute Tachycardia Unspecified tachycardia Essential hypertension Unspecified essential hypertension Chronic respiratory failure with hypoxia and hypercapnia (HCC) Uncomplicated opioid dependence (HCC) Atrial fibrillation with rapid ventricular response (HCC) Type 2 diabetes mellitus without complication, without long-term current use of insulin (HCC) Mucopurulent chronic bronchitis (HCC) Mucopurulent chronic bronchitis Alcoholic cirrhosis of liver with ascites (HCC) Venous stasis dermatitis of both lower extremities Adrenal insufficiency Glucocorticoid deficiency Pancytopenia (HCC) Chronic diastolic congestive heart failure (HCC) Effusion of right knee- Primary Synovitis Unspecified synovitis and tenosynovitis Abscess of knee, right History of total right knee replacement documented in this encounter [facility] note* Diagnosis Acute exacerbation of chronic obstructive pulmonary disease (COPD) (HCC)- Primary Obstructive chronic bronchitis with exacerbation Acute respiratory failure, unspecified whether with hypoxia or hypercapnia (HCC) COPD exacerbation (HCC) Obstructive chronic bronchitis with exacerbation Cannabis abuse Nondependent cannabis abuse, unspecified Atrial fibrillation with rapid ventricular response (HCC)- Primary Community acquired pneumonia, unspecified laterality Chronic obstructive pulmonary disease, unspecified COPD type (HCC) Cerebrovascular accident (CVA), unspecified mechanism (HCC) Acute renal failure, unspecified acute renal failure type (HCC) Sepsis, due to unspecified organism, unspecified whether acute organ dysfunction present (HCC) Cellulitis of lower extremity, unspecified laterality Hypotension, unspecified hypotension type Acute pain of left hip Pain of left femur Abnormal brain CT Nonspecific (abnormal) findings on radiological and other examination of skull and head Nondependent cocaine abuse (HCC)- Primary Nondependent cocaine abuse, unspecified Hepatic cirrhosis, unspecified hepatic cirrhosis type, unspecified whether ascites present (HCC) Acute on chronic respiratory failure with hypoxia and hypercapnia (HCC) Pulmonary emphysema, unspecified emphysema type (HCC) Essential hypertension Unspecified essential hypertension Opioid dependence with intoxication with complication (HCC) Sepsis, due to unspecified organism, unspecified whether acute organ dysfunction present (HCC) Cellulitis of lower extremity, unspecified laterality Hematoma- Primary Contusion of unspecified site Cirrhosis of liver without ascites, unspecified hepatic cirrhosis type (HCC) Opioid dependence with withdrawal (HCC) Pulmonary emphysema, unspecified emphysema type (HCC) Thrombocytopenia Unspecified thrombocytopenia Venous stasis dermatitis of both lower extremities Atrial fibrillation with rapid ventricular response (HCC) Chronic pain syndrome Plantar ulcer of right foot, unspecified ulcer stage (HCC) Skin ulcer of left lower leg with fat layer exposed (HCC) Cirrhosis of liver without ascites, unspecified hepatic cirrhosis type (HCC) Pulmonary emphysema, unspecified emphysema type (HCC) Venous stasis dermatitis of both lower extremities Skin ulcer of left lower leg with fat layer exposed (HCC) Opioid dependence with opioid-induced disorder (HCC) Infection associated with internal right knee prosthesis, subsequent encounter Chronic pain syndrome Adrenal insufficiency Glucocorticoid deficiency Cellulitis of right lower extremity Sepsis, due to unspecified organism, unspecified whether acute organ dysfunction present (HCC) Febrile illness, acute Tachycardia Unspecified tachycardia Essential hypertension Unspecified essential hypertension Chronic respiratory failure with hypoxia and hypercapnia (HCC) Uncomplicated opioid dependence (HCC) Atrial fibrillation with rapid ventricular response (HCC) Type 2 diabetes mellitus without complication, without long-term current use of insulin (HCC) Mucopurulent chronic bronchitis (HCC) Mucopurulent chronic bronchitis Alcoholic cirrhosis of liver with ascites (HCC) Venous stasis dermatitis of both lower extremities Adrenal insufficiency Glucocorticoid deficiency Pancytopenia (HCC) Chronic diastolic congestive heart failure (HCC) Cellulitis- Primary Cellulitis and abscess of unspecified site Leg pain Pain in soft tissues of limb Open wound of right knee, leg, and ankle, initial encounter Cellulitis, unspecified cellulitis site Osteoarthritis of right knee, unspecified osteoarthritis type Atrial fibrillation with rapid ventricular response (HCC) Pulmonary hypertension (HCC) Other chronic pulmonary heart diseases documented in this encounter [facility] note* Diagnosis Acute exacerbation of chronic obstructive pulmonary disease (COPD) (HCC)- Primary Obstructive chronic bronchitis with exacerbation Acute respiratory failure, unspecified whether with hypoxia or hypercapnia (HCC) COPD exacerbation (HCC) Obstructive chronic bronchitis with exacerbation Cannabis abuse Nondependent cannabis abuse, unspecified Atrial fibrillation with rapid ventricular response (HCC)- Primary Community acquired pneumonia, unspecified laterality Chronic obstructive pulmonary disease, unspecified COPD type (HCC) Cerebrovascular accident (CVA), unspecified mechanism (HCC) Acute renal failure, unspecified acute renal failure type (HCC) Sepsis, due to unspecified organism, unspecified whether acute organ dysfunction present (HCC) Cellulitis of lower extremity, unspecified laterality Hypotension, unspecified hypotension type Acute pain of left hip Pain of left femur Abnormal brain CT Nonspecific (abnormal) findings on radiological and other examination of skull and head Nondependent cocaine abuse (HCC)- Primary Nondependent cocaine abuse, unspecified Hepatic cirrhosis, unspecified hepatic cirrhosis type, unspecified whether ascites present (HCC) Acute on chronic respiratory failure with hypoxia and hypercapnia (HCC) Pulmonary emphysema, unspecified emphysema type Essential hypertension Unspecified essential hypertension Opioid dependence with intoxication with complication (HCC) Sepsis, due to unspecified organism, unspecified whether acute organ dysfunction present (HCC) Cellulitis of lower extremity, unspecified laterality Hematoma- Primary Contusion of unspecified site Cirrhosis of liver without ascites, unspecified hepatic cirrhosis type (HCC) Opioid dependence with withdrawal (HCC) Pulmonary emphysema, unspecified emphysema type Thrombocytopenia Unspecified thrombocytopenia Venous stasis dermatitis of both lower extremities Atrial fibrillation with rapid ventricular response (HCC) Chronic pain syndrome Plantar ulcer of right foot, unspecified ulcer stage (HCC) Skin ulcer of left lower leg with fat layer exposed (HCC) Cirrhosis of liver without ascites, unspecified hepatic cirrhosis type (HCC) Pulmonary emphysema, unspecified emphysema type Venous stasis dermatitis of both lower extremities Skin ulcer of left lower leg with fat layer exposed (HCC) Opioid dependence with opioid-induced disorder (HCC) Infection associated with internal right knee prosthesis, subsequent encounter Chronic pain syndrome Adrenal insufficiency Glucocorticoid deficiency Cellulitis of right lower extremity Sepsis, due to unspecified organism, unspecified whether acute organ dysfunction present (HCC) Febrile illness, acute Tachycardia Unspecified tachycardia Essential hypertension Unspecified essential hypertension Chronic respiratory failure with hypoxia and hypercapnia (HCC) Uncomplicated opioid dependence (HCC) Atrial fibrillation with rapid ventricular response (HCC) Type 2 diabetes mellitus without complication, without long-term current use of insulin (HCC) Mucopurulent chronic bronchitis (HCC) Mucopurulent chronic bronchitis Alcoholic cirrhosis of liver with ascites (HCC) Venous stasis dermatitis of both lower extremities Adrenal insufficiency Glucocorticoid deficiency Pancytopenia (HCC) Chronic diastolic congestive heart failure (HCC) Abscess of knee, right- Primary documented in this encounter [facility] note* Diagnosis Acute exacerbation of chronic obstructive pulmonary disease (COPD) (HCC)- Primary Obstructive chronic bronchitis with exacerbation Acute respiratory failure, unspecified whether with hypoxia or hypercapnia (HCC) COPD exacerbation (HCC) Obstructive chronic bronchitis with exacerbation Cannabis abuse Nondependent cannabis abuse, unspecified Atrial fibrillation with rapid ventricular response (HCC)- Primary Community acquired pneumonia, unspecified laterality Chronic obstructive pulmonary disease, unspecified COPD type (HCC) Cerebrovascular accident (CVA), unspecified mechanism (HCC) Acute renal failure, unspecified acute renal failure type (HCC) Sepsis, due to unspecified organism, unspecified whether acute organ dysfunction present (HCC) Cellulitis of lower extremity, unspecified laterality Hypotension, unspecified hypotension type Acute pain of left hip Pain of left femur Abnormal brain CT Nonspecific (abnormal) findings on radiological and other examination of skull and head Nondependent cocaine abuse (HCC)- Primary Nondependent cocaine abuse, unspecified Hepatic cirrhosis, unspecified hepatic cirrhosis type, unspecified whether ascites present (HCC) Acute on chronic respiratory failure with hypoxia and hypercapnia (HCC) Pulmonary emphysema, unspecified emphysema type Essential hypertension Unspecified essential hypertension Opioid dependence with intoxication with complication (HCC) Sepsis, due to unspecified organism, unspecified whether acute organ dysfunction present (HCC) Cellulitis of lower extremity, unspecified laterality Hematoma- Primary Contusion of unspecified site Cirrhosis of liver without ascites, unspecified hepatic cirrhosis type (HCC) Opioid dependence with withdrawal (HCC) Pulmonary emphysema, unspecified emphysema type Thrombocytopenia Unspecified thrombocytopenia Venous stasis dermatitis of both lower extremities Atrial fibrillation with rapid ventricular response (HCC) Chronic pain syndrome Plantar ulcer of right foot, unspecified ulcer stage (HCC) Skin ulcer of left lower leg with fat layer exposed (HCC) Cirrhosis of liver without ascites, unspecified hepatic cirrhosis type (HCC) Pulmonary emphysema, unspecified emphysema type Venous stasis dermatitis of both lower extremities Skin ulcer of left lower leg with fat layer exposed (HCC) Opioid dependence with opioid-induced disorder (HCC) Infection associated with internal right knee prosthesis, subsequent encounter Chronic pain syndrome Adrenal insufficiency Glucocorticoid deficiency Cellulitis of right lower extremity Sepsis, due to unspecified organism, unspecified whether acute organ dysfunction present (HCC) Febrile illness, acute Tachycardia Unspecified tachycardia Essential hypertension Unspecified essential hypertension Chronic respiratory failure with hypoxia and hypercapnia (HCC) Uncomplicated opioid dependence (HCC) Atrial fibrillation with rapid ventricular response (HCC) Type 2 diabetes mellitus without complication, without long-term current use of insulin (HCC) Mucopurulent chronic bronchitis (HCC) Mucopurulent chronic bronchitis Alcoholic cirrhosis of liver with ascites (HCC) Venous stasis dermatitis of both lower extremities Adrenal insufficiency Glucocorticoid deficiency Pancytopenia (HCC) Chronic diastolic congestive heart failure (HCC) Abscess of knee, right- Primary documented in this encounter [facility] note* Diagnosis Acute exacerbation of chronic obstructive pulmonary disease (COPD) (HCC)- Primary Obstructive chronic bronchitis with exacerbation Acute respiratory failure, unspecified whether with hypoxia or hypercapnia (HCC) COPD exacerbation (HCC) Obstructive chronic bronchitis with exacerbation Cannabis abuse Nondependent cannabis abuse, unspecified Atrial fibrillation with rapid ventricular response (HCC)- Primary Community acquired pneumonia, unspecified laterality Chronic obstructive pulmonary disease, unspecified COPD type (HCC) Cerebrovascular accident (CVA), unspecified mechanism (HCC) Acute renal failure, unspecified acute renal failure type (HCC) Sepsis, due to unspecified organism, unspecified whether acute organ dysfunction present (HCC) Cellulitis of lower extremity, unspecified laterality Hypotension, unspecified hypotension type Acute pain of left hip Pain of left femur Abnormal brain CT Nonspecific (abnormal) findings on radiological and other examination of skull and head Nondependent cocaine abuse (HCC)- Primary Nondependent cocaine abuse, unspecified Hepatic cirrhosis, unspecified hepatic cirrhosis type, unspecified whether ascites present (HCC) Acute on chronic respiratory failure with hypoxia and hypercapnia (HCC) Pulmonary emphysema, unspecified emphysema type Essential hypertension Unspecified essential hypertension Opioid dependence with intoxication with complication (HCC) Sepsis, due to unspecified organism, unspecified whether acute organ dysfunction present (HCC) Cellulitis of lower extremity, unspecified laterality Hematoma- Primary Contusion of unspecified site Cirrhosis of liver without ascites, unspecified hepatic cirrhosis type (HCC) Opioid dependence with withdrawal (HCC) Pulmonary emphysema, unspecified emphysema type Thrombocytopenia Unspecified thrombocytopenia Venous stasis dermatitis of both lower extremities Atrial fibrillation with rapid ventricular response (HCC) Chronic pain syndrome Plantar ulcer of right foot, unspecified ulcer stage (HCC) Skin ulcer of left lower leg with fat layer exposed (HCC) Cirrhosis of liver without ascites, unspecified hepatic cirrhosis type (HCC) Pulmonary emphysema, unspecified emphysema type Venous stasis dermatitis of both lower extremities Skin ulcer of left lower leg with fat layer exposed (HCC) Opioid dependence with opioid-induced disorder (HCC) Infection associated with internal right knee prosthesis, subsequent encounter Chronic pain syndrome Adrenal insufficiency Glucocorticoid deficiency Cellulitis of right lower extremity Sepsis, due to unspecified organism, unspecified whether acute organ dysfunction present (HCC) Febrile illness, acute Tachycardia Unspecified tachycardia Essential hypertension Unspecified essential hypertension Chronic respiratory failure with hypoxia and hypercapnia (HCC) Uncomplicated opioid dependence (HCC) Atrial fibrillation with rapid ventricular response (HCC) Type 2 diabetes mellitus without complication, without long-term current use of insulin (HCC) Mucopurulent chronic bronchitis (HCC) Mucopurulent chronic bronchitis Alcoholic cirrhosis of liver with ascites (HCC) Venous stasis dermatitis of both lower extremities Adrenal insufficiency Glucocorticoid deficiency Pancytopenia (HCC) Chronic diastolic congestive heart failure (HCC) Abscess of knee, right- Primary History of total right knee replacement documented in this encounter [facility] note* Diagnosis Acute exacerbation of chronic obstructive pulmonary disease (COPD) (HCC)- Primary Obstructive chronic bronchitis with exacerbation Acute respiratory failure, unspecified whether with hypoxia or hypercapnia (HCC) COPD exacerbation (HCC) Obstructive chronic bronchitis with exacerbation Cannabis abuse Nondependent cannabis abuse, unspecified Atrial fibrillation with rapid ventricular response (HCC)- Primary Community acquired pneumonia, unspecified laterality Chronic obstructive pulmonary disease, unspecified COPD type (HCC) Cerebrovascular accident (CVA), unspecified mechanism (HCC) Acute renal failure, unspecified acute renal failure type (HCC) Sepsis, due to unspecified organism, unspecified whether acute organ dysfunction present (HCC) Cellulitis of lower extremity, unspecified laterality Hypotension, unspecified hypotension type Acute pain of left hip Pain of left femur Abnormal brain CT Nonspecific (abnormal) findings on radiological and other examination of skull and head Nondependent cocaine abuse (HCC)- Primary Nondependent cocaine abuse, unspecified Hepatic cirrhosis, unspecified hepatic cirrhosis type, unspecified whether ascites present (HCC) Acute on chronic respiratory failure with hypoxia and hypercapnia (HCC) Pulmonary emphysema, unspecified emphysema type Essential hypertension Unspecified essential hypertension Opioid dependence with intoxication with complication (HCC) Sepsis, due to unspecified organism, unspecified whether acute organ dysfunction present (HCC) Cellulitis of lower extremity, unspecified laterality Hematoma- Primary Contusion of unspecified site Cirrhosis of liver without ascites, unspecified hepatic cirrhosis type (HCC) Opioid dependence with withdrawal (HCC) Pulmonary emphysema, unspecified emphysema type Thrombocytopenia Unspecified thrombocytopenia Venous stasis dermatitis of both lower extremities Atrial fibrillation with rapid ventricular response (HCC) Chronic pain syndrome Plantar ulcer of right foot, unspecified ulcer stage (HCC) Skin ulcer of left lower leg with fat layer exposed (HCC) Cirrhosis of liver without ascites, unspecified hepatic cirrhosis type (HCC) Pulmonary emphysema, unspecified emphysema type Venous stasis dermatitis of both lower extremities Skin ulcer of left lower leg with fat layer exposed (HCC) Opioid dependence with opioid-induced disorder (HCC) Infection associated with internal right knee prosthesis, subsequent encounter Chronic pain syndrome Adrenal insufficiency Glucocorticoid deficiency Cellulitis of right lower extremity Sepsis, due to unspecified organism, unspecified whether acute organ dysfunction present (HCC) Febrile illness, acute Tachycardia Unspecified tachycardia Essential hypertension Unspecified essential hypertension Chronic respiratory failure with hypoxia and hypercapnia (HCC) Uncomplicated opioid dependence (HCC) Atrial fibrillation with rapid ventricular response (HCC) Type 2 diabetes mellitus without complication, without long-term current use of insulin (HCC) Mucopurulent chronic bronchitis (HCC) Mucopurulent chronic bronchitis Alcoholic cirrhosis of liver with ascites (HCC) Venous stasis dermatitis of both lower extremities Adrenal insufficiency Glucocorticoid deficiency Pancytopenia (HCC) Chronic diastolic congestive heart failure (HCC) Abscess of knee, right History of total right knee replacement Abscess of knee, right- Primary History of total right knee replacement Abscess of knee, right History of total right knee replacement documented in this encounter [facility] Discharge instructions* Attachments The following attachments cannot be sent through Care Everywhere. * Shoulder Sprain ([place]mani) * Contusion ([place]) [facility]* Attachments The following attachments cannot be sent through Care Everywhere. * Contusion ([place]) [facility]* Attachments The following attachments cannot be sent through Care Everywhere. * Hepatitis C: General Info (Omani) * Hepatitis B: General Info ([place]mani) [facility]* Attachments The following attachments cannot be sent through Care Everywhere. * Foot Bones: Anatomy Sketch ([place]i) [facility]* Attachments The following attachments cannot be sent through Care Everywhere. * Cellulitis ([place]mani) * Compression Stockings: General Info ([place]i) [facility]* Attachments The following attachments cannot be sent through Care Everywhere. * Lymphedema ([place]i) documented in this [facility]* Attachments The following attachments cannot be sent through Care Everywhere. * SOB (Shortness of Breath) ([place]) [facility] Attachments The following attachments cannot be sent through Care Everywhere. * Pain and Pain Control ([facility]) ([place]i) [facility] Consultation (Routine) - New Request Specialty Diagnoses / Procedures Referred By Kathy suh Referred To Contact Infectious Diseases Diagnoses Chronic hepatitis C without hepatic coma Chronic viral hepatitis B without delta agent and 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 Paul Osman, SUSTAINABILITY COORDINATOR-ENVIRONMENTAL EMERGENCIES PLANNER [address] [place] [address] Nathan Branch MD [address] [place] [address] Referral ID Status Reason Start Date Expiration Date V isits Requested Visits Authorized [id number] New Request 11/15/2021 12/10/2022 1 1 Electronically signed by Paul Osman SUSTAINABILITY COORDINATOR-ENVIRONMENTAL EMERGENCIES PLANNER at 11/15/2021 11:32 AM EDT * (Routine) - New Request Specialty Diagnoses / Procedures Referred By Contac t Referred To Contact Procedures INPATIENT ADMISSION NOTIFICATION Morisetty, Satyasagar, MD [address] [facility] [place] [address] Referral ID Status Reason Start Date Expiration Date V isits Requested Visits Authorized [id number] New Request 11/12/2021 12/07/2022 1 1 * Radiology (Emergency) - New Request Specialty Diagnoses / Procedures Referred By Contac t Referred To Contact Procedures ECG Nuno Cantor MD [address] [place] [address] Referral ID Status Reason Start Date Expiration Date V isits Requested Visits Authorized [id number] New Request 11/12/2021 12/07/2022 1 1 [facility] for referral (narrative)* Consultation (Routine) - Pending Review Specialty Diagnoses / Procedures Referred By Contac t Referred To Contact Podiatry Diagnoses Right foot pain Sofía Devine MD [address] [place] [address] Felipe Molina, [facility] [address] [place] [address] Referral ID Status Reason Start Date Expiration Date V isits Requested Visits Authorized [id number] Pending Review 03/30/2021 04/24/2022 1 1 [facility] for referral (narrative)* Consultation (Routine) - New Request Specialty Diagnoses / Procedures Referred By Contac t Referred To Contact Wound Care Diagnoses Cellulitis of right lower extremity Venous stasis ulcer of right calf, unspecified ulcer stage, unspecified whether varicose veins present Nuno Cantor MD [address] [place] [address] [facility] [address] [place] [address] Referral ID Status Reason Start Date Expiration Date V isits Requested Visits Authorized [id number] New Request 03/07/2022 04/01/2023 1 1 [facility] for referral (narrative)* Consultation (Urgent) - New Request Specialty Diagnoses / Procedures Referred By Contac t Referred To Contact Infectious Diseases Diagnoses Referral of patient Chronic viral hepatitis B without delta agent and 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 Chronic hepatitis C without hepatic coma Pattie Roman, SUSTAINABILITY COORDINATOR-ENVIRONMENTAL EMERGENCIES PLANNER [address] [place] [address] Nathan Hayden MD [address] [place] [address] Referral ID Status Reason Start Date Expiration Date V isits Requested Visits Authorized [id number] New Request 06/07/2022 07/02/2023 1 1 Electronically signed by Pattie Roman SUSTAINABILITY COORDINATOR-ENVIRONMENTAL EMERGENCIES PLANNER at 06/07/2022 6:43 PM EDT * Consultation (Urgent) - New Request Specialty Diagnoses / Procedures Referred By Contac t Referred To Contact Family Medicine Diagnoses Referral of patient Chronic viral hepatitis B without delta agent and 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 Chronic hepatitis C without hepatic coma Pattie Roman SUSTAINABILITY COORDINATOR-ENVIRONMENTAL EMERGENCIES PLANNER [address] [place] [address] Referral ID Status Reason Start Date Expiration Date V isits Requested Visits Authorized [id number] New Request 06/07/2022 07/02/2023 1 1 Electronically signed by Pattie Roman SUSTAINABILITY COORDINATOR-ENVIRONMENTAL EMERGENCIES PLANNER at 06/07/2022 6:43 PM EDT [facility] for referral (narrative)* Consultation (Routine) - New Request Specialty Diagnoses / Procedures Referred By Contac t Referred To Contact Podiatry Diagnoses Wound of right lower extremity, subsequent encounter Nathan Hayden MD [address] [place] [phone] Felipe Molina DPM [address] [place] [address] Referral ID Status Reason Start Date Expiration Date V isits Requested Visits Authorized [id number] New Request 09/29/2022 10/24/2023 1 1 * Consultation (Routine) - New Request Specialty Diagnoses / Procedures Referred By Contac t Referred To Contact Hematology Diagnoses Pancytopenia Nathan Hayden MD [address] [place] [phone] Referral ID Status Reason Start Date Expiration Date V isits Requested Visits Authorized [id number] New Request 09/29/2022 10/24/2023 1 1 [facility] for referral (narrative)* Consultation (Routine) - Closed Specialty Diagnoses / Procedures Referred By Contac t Referred To Contact Wound Care Diagnoses Wound of right lower extremity, subsequent encounter Nathan Hayden MD [address] [place] [phone] Jessenia Perry, SUSTAINABILITY COORDINATOR-ENVIRONMENTAL EMERGENCIES PLANNER [address] [place] [address] Referral ID Status Reason Start Date Expiration Date Visits Re quested Visits Authorized [id number] Closed 11/03/2022 11/28/2023 1 1 [facility] for referral (narrative)* Consultation (Routine) - New Request Specialty Diagnoses / Procedures Referred By Contac t Referred To Contact Podiatry Diagnoses Foot mass, right Hay, Nj L, SUSTAINABILITY COORDINATOR-ENVIRONMENTAL EMERGENCIES PLANNER [address] [place] [phone] Kristi Bryan DPM [id number] [place] [phone] Referral ID Status Reason Start Date Expiration Date V isits Requested Visits Authorized [id number] New Request 01/25/2023 02/19/2024 1 1 [facility] for referral (narrative)* (Routine) Specialty Diagnoses / Procedures Referred By Contac t Referred To Contact [facility] [address] [place] [address] Referral ID Status Reason Start Date Expiration Date Visits Re quested Visits Authorized [facility] for referral (narrative)* Consultation (Routine) - Authorized Specialty Diagnoses / Procedures Referred By Contac t Referred To Contact General Surgery Diagnoses Encounter for screening colonoscopy Ani Worley, ENVIRONMENTAL EMERGENCIES PLANNER [address] [place] [address] [facility], [address] [place] [address] Referral ID Status Reason Start Date Expiration Date Visits Requested Visits Authorized [id number] Authorized Specialty Services Required/Pat ient's Best Interest 12/22/2023 12/21/2024 1 1 [facility] Assessments Diagnosis Hallux valgus (acquired), ri ght foot - Primary Arthralgia, unspecified join t Primary osteoarthritis of ri ght knee Diagnosis Acquired pes planovalgus, ri ght - Primary Arthritis of foot, right Diagnosis Toe dislocation, left, subse quent encounter Osteoarthritis of right knee , unspecified osteoarthritis type Acquired pes planovalgus of right foot Diagnosis Knee pain Pain in joint, lower leg Diagnosis Toe dislocation, left, subsequent encounter- Primary Arthritis of first metatarsophalangeal (MTP) joint of left foot Diagnosis Toe dislocation, left, subsequent encounter- Primary Arthritis of first metatarsophalangeal (MTP) joint of left foot Acquired pes planovalgus of right foot Arthritis of right foot Diagnosis Chronic obstructive pulmonary disease, unspecified COPD type- Primary Diagnosis Chronic pain syndrome Diagnosis Essential hypertension Unspecified essential hypertension Diagnosis Acute exacerbation of chronic obstructive pulmonary disease (COPD) ([facility])- Primary Obstructive chronic bronchitis with exacerbation Diagnosis Mild intermittent asthma without complication- Primary Unspecified asthma Chronic obstructive pulmonary disease, unspecified COPD type Diagnosis Chronic obstructive pulmonary disease, unspecified COPD type Diagnosis Chronic pain syndrome Diagnosis Primary osteoarthritis of right knee Diagnosis Tricompartment osteoarthritis of right knee Diagnosis Primary osteoarthritis of right knee Diagnosis Primary osteoarthritis of right knee Diagnosis Primary osteoarthritis of right knee Diagnosis Primary osteoarthritis of right knee Diagnosis Primary osteoarthritis of right knee Essential hypertension Unspecified essential hypertension Diagnosis Essential hypertension Unspecified essential hypertension SOB (shortness of breath) on exertion Shortness of breath Leg edema Edema Diagnosis Pneumonia of left lower lobe due to infectious organism ([facility]) Influenza A Influenza with other respiratory manifestations COPD exacerbation ([facility]) Obstructive chronic bronchitis with exacerbation Pneumonia Pneumonia, organism unspecified Diagnosis Primary osteoarthritis of right knee S/P total knee arthroplasty, right Diagnosis Status post total right knee replacement Primary osteoarthritis of right knee Diagnosis Toe dislocation, left, subsequent encounter- Primary Arthritis of first metatarsophalangeal (MTP) joint of left foot Acquired pes planovalgus of right foot Arthritis of right foot Diagnosis Pain Generalized pain Diagnosis Acquired pes planovalgus of right foot- Primary Arthritis of right foot Diagnosis Acute exacerbation of chronic obstructive pulmonary disease (COPD) ([facility])- Primary Obstructive chronic bronchitis with exacerbation Acute respiratory failure, unspecified whether with hypoxia or hypercapnia ([facility]) COPD exacerbation ([facility]) Obstructive chronic bronchitis with exacerbation Cannabis abuse Nondependent cannabis abuse, unspecified Acute on chronic respiratory failure with hypoxia and hypercapnia ([facility]) Essential hypertension Unspecified essential hypertension Atrial fibrillation with rapid ventricular response ([facility]) Acute congestive heart failure ([facility]) Congestive heart failure, unspecified Morbid obesity with BMI of 40.0-44.9, adult ([facility]) Type 2 diabetes mellitus, without long-term current use of insulin ([facility]) Diagnosis Chronic obstructive pulmonary disease with acute exacerbation- Primary Obstructive chronic bronchitis with exacerbation Acute respiratory failure, unspecified whether with hypoxia or hypercapnia Atrial fibrillation, unspecified type Essential hypertension Unspecified essential hypertension Anemia, unspecified type Thrombocytopenia Thrombocytopenia, unspecified Elevated troponin Other abnormal blood chemistry Elevated brain natriuretic peptide (BNP) level Other nonspecific findings on examination of blood Marijuana use Cannabis abuse, unspecified Diagnosis Suspected COVID-19 virus infection- Primary Asthma with acute exacerbation, unspecified asthma severity, unspecified whether persistent Morbid obesity ([facility]) Morbid obesity H/O CHF Paroxysmal atrial fibrillation (HCC) Atrial fibrillation Medication refill Issue of repeat prescriptions Diagnosis Pancytopenia- Primary Other pancytopenia Atrial fibrillation, unspecified type Essential hypertension Unspecified essential hypertension Chronic obstructive pulmonary disease, unspecified COPD type Chronic pain syndrome Diagnosis COPD exacerbation (HCC)- Primary Obstructive chronic bronchitis with exacerbation Diagnosis Tricompartment osteoarthritis of right knee Diagnosis S/P total knee replacement, right Diagnosis COPD with acute exacerbation (HCC)- Primary Community acquired pneumonia, unspecified laterality Chronic obstructive pulmonary disease, unspecified COPD type (HCC) History of Present Illness * Monica Condon LPN - 07/10/2018 1:23 PM EST PATIENT ARRIVED TO CLINIC FOR APPT TODAY WITH DR ANDINO, AT LAST VISIT PATIENT WAS INSTRUCTED TO GETPRE OP EVAL TO DETERMINE IF HE IS ABLE TO BE NON WEIGHTBEARING. AT THIS TIME PATIENT HAS YET TO COMPLETE THE EVAL. PER DR ANDINO REQUEST APPT TO BE CX AND PATIENT NOT TO BE SEEN UNTIL THIS EVAL. HAS BEEN COMPLETED AND SHE HAS REVIEWED THE REPORT FROM PHYSICAL THERAPY. PATIENT INFORMED OF THIS AND WILL CALL OFFICE ONCE THE EVAL IS COMPLETED. AO in this encounter* Dmitri Davenport DPM - 07/31/2018 10:53 AM EST Formatting of this note may be different from the original. Orthopaedic Trauma Surgery Clinic Note Carmen Gilman is a 53 y.o. male who presents to the office for a second opinion regarding his longstanding bilateral foot pain and right knee pain. Patient states that he has been dealing with the bilateral foot pain for many years. He has been evaluated by a physician [place], who recommended that he undergo PT evaluation for gait training and further evaluation of his right knee prior to discussing surgial options with him. He states that he went to see someone for his knee and they recommended that they try steroid injections first, before discussing surgical options.Patients states that he injured his knee last year when he was walking down a hill and his "leg bent so far backward that it touched his back, which ripped everything up in the knee". Patient states that he came all the way to [place] for a second opinion because he heard good things from other people in his hometown. Past Medical History: Past Medical History: Diagnosis Date Anxiety Asthma COPD (chronic obstructive pulmonary disease) (HCC) Diabetes (HCC) Hypertension Surgical History: Past Surgical History: Procedure Laterality Date APPENDECTOMY FOOT SURGERY Left MANDIBLE FRACTURE SURGERY THORACIC DUCT LIGATION 01/15/2017 Family History: Family History Problem Relation Age of Onset Heart disease Mother Diabetes Mother Social History: Social History Social History Marital status: Unknown Spouse name: N/A Number of children: N/A Years of education: N/A Occupational History Not on file. Social History Main Topics Smoking status: Former Smoker Quit date: 01/25/2010 Smokeless tobacco: Current User Types: Chew Alcohol use No Drug use: No Sexual activity: Not on file Other Topics Concern Not on file Social History Narrative No narrative on file Allergies: No Known Allergies Home Medications: Carmen Gilman Home Medication Instructions Prior to Surgery BENJA: Printed on:07/31/18 8200 Medication Information Take last dose on Take the morning of surgery Comment(s) albuterol 90 mcg/actuation inhaler Inhale 2 puffs every 6 (six) hours as needed for wheezing. allopurinol (ZYLOPRIM) 300 MG tablet Take 300 mg by mouth daily. buprenorphine HCl (SUBUTEX) [address] 8 mg under the tongue 2 (two) times a day. gabapentin (NEURONTIN) 800 MG tablet Take 800 mg by mouth 3 (three) times a day. ibuprofen (ADVIL,MOTRIN) 600 MG tablet 1 PO q 8 hours PRN pain. Discontinue if GI upset/distress and notify provider.. indomethacin (INDOCIN) 25 MG capsule Take 25 mg by mouth 2 (two) times a day. lisinopril (PRINIVIL,ZESTRIL) 20 MG tablet Take 20 mg by mouth daily. tiotropium-olodaterol (STIOLTO) 2.5-2.5 mcg/actuation Mist respimat inhaler Inhale 2.5 mcg daily. ROS: Gen: Denies fever, chills, nausea and vomiting Neuro: Denies: tingling and numbness of extremity VITAL SIGNS Vitals: 07/31/18 1031 Pulse: 80 Temp: 97.9 F (36.6 C) TempSrc: Temporal SpO2: 94% Weight: 127 kg (280 lb) Height: 6' LABS: Lab Results Component Value Date WBC 5.0 05/05/2017 HGB 11.6 (L) 05/05/2017 HCT 36.9 (L) 05/05/2017 PLT 122 (L) 05/05/2017 Lab Results Component Value Date BUN 18 05/05/2017 CREATININE 0.68 05/05/2017 No results found for: GLU No results found for: CALCIUM, PHOS No results found for: MG Lab Results Component Value Date AST 38 05/05/2017 ALT 44 05/05/2017 No components found for: ESR No results found for: CRP No results found for: PREALBUMIN PHYSICAL EXAM Gen: no acute distress, alert, oriented x 3, appropriate mood and affect RUE: Sensation intact to light touch to AIN, PIN, radial, median, axillary, and ulnar nerve distributions. Capillary refill time brisk, radial and ulnar pulses palpable. Cardinal hand movements intact. Motor intact to wrist flexors and extensors, biceps, and triceps. No open wounds or gross deformities. Compartments soft to palpation. No TTP. LUE: Sensation intact to light touch to AIN, PIN, radial, median, axillary, and ulnar nerve distributions. Capillary refill time brisk, radial and ulnar pulses palpable. Cardinal hand movements intact. Motor intact to wrist flexors and extensors, biceps, and triceps. No open wounds or gross deformities. Compartments soft to palpation. No TTP. Pelvis: No pain or gross motion with compression. No gross deformity noted. RLE: Sensation intact to light touch grossly. DP and PT pulses weakly palpable. Capillary refill time brisk. Diffuse +1 pitting edema. Motor intact to EHL, FHL, TA, GS. No pain with log rolling of hip. Pain with knee joint range of motion. Pes planovalgus deformity noted. Severely decreased ROM noted throughout the midfoot and 1st MPJ. Ankle joint ROM is normal. +Pain with midfoot motion. Compartments are soft to palpation. LLE: Sensation intact to light touch grossly. DP and PT pulses weakly palpable. Capillary refill time brisk. Diffuse +1 pitting edema. Motor intact to EHL, FHL, TA, GS. No pain with log rolling of hip. Pes planovalgus deformity noted. Severely decreased ROM noted throughout the midfoot and 1st MPJ.Ankle joint ROM is normal. +TTP to the left 2nd toe. Compartments are soft to palpation ASSESSMENT/PLAN This is a 53 y.o. male with bilateral pes planovalgus deformity and osteoarthritis of the right knee. Pain control: NSAID's as needed Weight bearing: WBAT, bilaterally Radiographs were taken and reviewed with patient in detail. Discussed with patient that his injury to the left second toe appears chronic and will likely not experience any pain relief with surgical correction of the 2nd toe and patient would more likely benefit from elective amputation of the [id number] digit. However, patient would prefer to try surgical correction first and then revisit electiveamputation if the pain persists. Patient states that he will discuss this further with his other orthopedic surgeon since he already has a relationship with her and is much closer to his home. Patient would like his right knee fixed before undergoing any surgical intervention for his right foot deformity, which is appropriate. Will have patient see Dr. Davey for further evaluation of his right knee. Thank you for the consult. Please feel free to call with questions. in this encounter* Monica Condon LPN - 08/01/2018 9:12 AM EST This nurse left message on patient VM informing him that we received his report from his physical therapy evaluation to see about being compliant with NWB status for an extended period of time. Per Dr Andino according to report his ability to be NWB would be questionable. At this time patient is nota surgical candidate and we would be glad to refer him to another provider for a second opinion. Patient encouraged to call with any questions. ao in this encounter* Sb Andino MD - 09/15/2018 11:51 AM EST Impression: SNOMED CT(R) 1. Toe dislocation, left, subsequent encounter DISLOCATION OF TOE JOINT 2. Arthritis of first metatarsophalangeal (MTP) joint of left foot ARTHRITIS OF FIRST METATARSOPHALANGEAL JOINT OF LEFT FOOT Plan: The above diagnosis as well as the options for treatment were discussed with Carmen in clinic today. At this time we recommend the following: There are 2 options for treatment of this left second toe. 1, as earlier stated to him, is amputation. However we could also try to correct the toe and fused the first MTP joint of the left foot. He is not interested in amputation of the second toe. I have told this patient that the worry once again is whether he be able to stay off of this. He states that he could go to a care home or stay in the hospital for a while after surgery. I told him that stay in the hospital for a long period of time does not make a lot of sense. He has already been evaluated by physical therapy and deemed unable to remain nonweightbearing postoperatively from the other side. We will get him in touch with the social walk worker either here at the hospital or through his insurance company. He would need to be nonweightbearing after surgery for minimum of 6 weeks up to 12 weeks. I have recommended a first MTP fusion with second hammertoe correction both on the left side. After he meets with the home health care social worker if they have a plan for what he can do postoperatively we will have him come back in the sign paperwork. Carmen was agreeable to the plan and there were no learning barriers encountered. Follow-Up: Followup after meeting with social work. Subjective: Carmen Gilman is here to discuss a new problem today. He states that his left second toe was broken and is now deformed. He also has pain at the first MTP joint. He saw a practitioner in [place] and was told that he could have a toe amputated. He does not want the toe amputated. He wonders if he canbe corrected. He also was told to see a knee arthroplasty surgeon prior to undergoing a midfoot reconstruction. He did not go to that appointment because he says that he had already seen Dr. Hammer who told him that he could be treated with injections instead. He does not want a knee replacement. Smoking status, allergies, medications, and non-medications were reviewed and updated as appropriate in [facility]. He is not a current tobacco user. Exam: Vitals: 09/15/18 1119 BP: 138/82 Pulse: 80 Weight: 127 kg (280 lb) Height: 6' The patient is awake, alert and orientated x3, and in no apparent distress. Standing: Pes planovalgus. Antalgic gait. Palpation: Mild tenderness to palpation over the second left toe. Tenderness to palpation at the first MTP joint. ROM / Strength Range of motion is decreased. Strength is grossly intact with weakness in the post hip. Neurovascular Exam Intact. Skin Intact. No scars or other lesions. Radiology: Xrays of the left foot were performed on July 31, 2018. These images show a subluxed second PIPjoint on the left foot. There is significant degenerative change and cystic change on either side of the joint. There is also degenerative change at the hallux interphalangeal joint but more significantly at the first MTP joint with dorsal osteophyte formation, squaring off of bone edges, subchondral sclerosis, and subchondral cystic formation. These are nonweightbearing images. Alignment cannot be commented on. CC: Norman Baldwin MD in this encounter* Monica Condon LPN - 10/05/2018 3:25 PM EST PATIENT NOTIFIED THAT HE WOULD HAVE TO BE NWB FOR A MINIMUM OF 6 WEEKS AFTER SURGERY. THIS NURSE HAS CONTACTED SOCIAL WORKERS AT THE HOSPITAL AND THEY STATED THAT WITH HIS INSURANCE HE WOULD MOST LIKELY ONLY GET APPROVED FOR 2 WEEKS OR LESS FOR RETIREMENT CARE. HE COULD GET RELEASED TO HOME WITH HOME CARE IF APPROVED BY INSURANCE. HOWEVER IT CAN ONLY BE DETERMINED AFTER SURGERY. PATIENT INFORMED OF THIS. PATIENT AWARE FROM PT [facility] THAT HE WOULD BE IN WHEEL CHAIR PATIENT STATED THERE ARE NO STAIRS WHERE HE LIVES SO THAT WOULD NOT BE A PROBLEM. WHILE ON PHONE WITH PATIENT HE STATED 2 NIGHTS AGO HE FELT LIKE THE BONE IN HIS TOE WENT OVER THE OTHER ONE AND NOW HE HAS A WOUND. PATIENT DENIED ANY INJURY JUST STATED HE STEPPED WRONG. PATIENT DID NOT GO TO ER AND DID NOT NOTIFY PCP. THIS NURSE INSTRUCTED PATIENT THAT IF HE HAS AN OPEN WOUND FROM A BONE HE SHOULD HAVE WENT TO THE ER. PATIENT STATED HE WASN'T SURE WHAT TO DO. THIS NURSE STATED HE SHOULD GO TO ER IF BONE IS OUT OF SKIN. PATIENT SAID HE WOULD RATHER SEE DR ANDINO. APPT MADE FOR 10/06 AT 8:00AM. PATIENT AWARE. AO in this encounter* Sb Andino MD - 10/06/2018 9:19 AM EST Impression: SNOMED CT(R) 1. Toe dislocation, left, subsequent encounter DISLOCATION OF TOE JOINT 2. Arthritis of first metatarsophalangeal (MTP) joint of left foot ARTHRITIS OF FIRST METATARSOPHALANGEAL JOINT OF LEFT FOOT 3. Acquired pes planovalgus of right foot ACQUIRED DEFORMITY OF ANKLE AND/OR FOOT 4. Arthritis of right foot ARTHRITIS OF RIGHT FOOT Plan: The above diagnosis as well as the options for treatment were discussed with Carmen in clinic today. At this time we recommend the following: I had a long discussion today with Carmen. His main complaint about the left second toe is that it swells on him and this causes his pain. I told him that hammertoe correction could lead to additional swelling. In addition I recommend that he try a toe spacer. He has not tried it to this point. We once again discussed the restrictions postoperatively. We had a physical therapy evaluation and they stated he is unable to remain nonweightbearing on one extremity postoperatively. He would have to be in a wheelchair. He thinks he will be using a bedpan in a wheelchair in a care home combination postop. However the details of this are not well worked out. In addition to that and the fact that additional surgery can cause even more swelling I told him I do not recommend surgery for the second toe problem. Carmen was agreeable to the plan and there were no learning barriers encountered. Follow-Up: As needed Subjective: Carmen Gilman is here to discuss a new problem today. Story is not entirely clear but he states he was walking outside and he thinks it was too cold and he thinks he might of bumped his toe when he took off his shoe he was bleeding. He was bleeding over the dorsal aspect of the base of the second toe. He is concerned that the bone moved. Smoking status, allergies, medications, and non-medications were reviewed and updated as appropriate in [facility]. He is not a current tobacco user. Exam: Vitals: 10/06/18 0850 BP: 111/65 Pulse: 63 Weight: 127 kg (280 lb) Height: 6' The patient is awake, alert and orientated x3, and in no apparent distress. Standing: Pes planovalgus. Antalgic gait. Palpation: Mild tenderness to palpation over the second left toe. Tenderness to palpation at the first MTP joint. There is an eschar over the base of the second toe. ROM / Strength Range of motion is decreased. Strength is grossly intact with weakness in the post tib. Neurovascular Exam Intact. Pulses were found with Doppler. Skin Eschar over the base of the second toe. No draining. No erythema. No signs of infection. Radiology: Xrays of the left foot were performed today. There is no significant change in alignment of the left second toe or first MTP joint. Significant degenerative change at the second PIP joint as well as the first MTP joint. CC: Norman Baldwin MD in this encounter* Palmer Givens PA - 11/06/2018 11:15 AM EDT History of Present Illness Chronic Obstructive Pulmonary Disease (COPD) Carmen Gilman has COPD caused by smoking. Status: stable. Severity: mild. Frequency: random. Current symptoms: none on inhalers. Aggravated by: smoking hx. Relieved by: inhalers. Current treatments include stiolto daily and albuterol prn. Compliance with therapy: yes. Needs refill on inhalers. Review of Systems Constitutional: Negative for chills, diaphoresis, fatigue and fever. Eyes: Negative. Respiratory: Negative for cough, shortness of breath and wheezing. Cardiovascular: Negative for chest pain and leg swelling. Gastrointestinal: Negative for abdominal pain and blood in stool. Genitourinary: Negative for dysuria. Musculoskeletal: Negative for back pain. Skin: Negative for rash. Neurological: Negative for dizziness and headaches. Hematological: Negative for adenopathy. Does not bruise/bleed easily. Vitals: Blood pressure 124/68, pulse 84, temperature 98.2 F (36.8 C), temperature source Oral, resp. rate 16, height 1.829 m (6'), weight 133 kg (293 lb 3.2 oz), SpO2 97 %. Physical Exam Constitutional: He is oriented to person, place, and time. He appears well- developed and well-nourished. No distress. Eyes: Pupils are equal, round, and reactive to light. Neck: Normal range of motion. No thyromegaly present. Cardiovascular: Normal rate, regular rhythm and normal heart sounds. No murmur heard. Pulses: Carotid pulses are 2+ on the right side, and 2+ on the left side. Radial pulses are 2+ on the right side, and 2+ on the left side. No carotid bruit appreciated. Pulmonary/Chest: Effort normal and breath sounds normal. No respiratory distress. He has no wheezes. Abdominal: Soft. Bowel sounds are normal. Musculoskeletal: Normal range of motion. He exhibits no edema. Neurological: He is alert and oriented to person, place, and time. He has normal strength. Skin: Skin is warm and dry. No bruising, no lesion and no rash noted. He is not diaphoretic. Nursing note and vitals reviewed. Neurologic Exam Mental Status Oriented to person, place, and time. Cranial Nerves CN III, IV, Pupils are equal, round, and reactive to light. Motor Exam Strength Strength 5/5 throughout. Assessment and Plan 1. Chronic obstructive pulmonary disease, unspecified COPD type - albuterol 108 (90 Base) MCG/ACT Aero Soln inhaler; Inhale 1 puff every 6 hours as needed for Wheezing. Dispense: 1 Inhaler; Refill: 2 - tiotropium bromide-olodaterol (STIOLTO RESPIMAT) 2.5-2.5 MCG/ACT Aero Soln inhaler; Inhale 2 puffs daily. Dispense: 1 Inhaler; Refill: 11 Medical Decision Making Stable and improved on inhaler regimen. Continue inhalers, get routine labs done, and follow up based on results. 15 minutes and 50% of the visit spent educating and counseling the patient on the condition(s). documented in this encounter* Do Parrish, PT - 10/26/2019 10:45 AM EST [facility] Evaluation Today's Date 10/26/2019 Patient Name: Carmen Gilman Date of : 1965 Case Name: Tricompartment osteoarthritis of right knee Functional Diagnosis: 1. Tricompartment osteoarthritis of right knee Clinical Information: Subjective Referring Diagnosis: Tricompartment osteoarthritis of right knee History of Present Illness Chief Complaint/ Mechanism of Injury: The patient has pain at the Rt knee for couple of years. He has broken right foot that can be fixed after TKA. He has left toe broken. The patient has planned TKA on 12/06/2019. Pain Scale: Average Pain: 7/10 (rest 6 ) Pain at highest: 9/10 Aggravating factors: walking Easing factors: rest, change position and medication 24 Hour Symptom Behavior Morning Pain: worse End of day pain: worse Functional Status Functional Limitations: limited mobility Fall risk screening Fallen 2 or more times in the last 12 months: No Personal Goals: The patient wants to get some pain relief. Home medical equipment owned: Yes straight cane and wheeled walker Knee Right Knee Tenderness: medial joint line Anterior knee Range of Motion: Flexion Active: 80 Extension Active: 0 (lower leg in ER) Muscle Strength: Flexion: 3 (crepitus) Extension: 3+ (crepitus) Quad Set: poor Left Knee Range of Motion: Flexion Active: 112 Extension Active: 0 Steps at home (15 to the apartment). Swelling at both ankle. Swelling at right knee. Ankle is painful and tender on touch. Gait: walks slowly with stick with less knee bending. Treatments: Physical Therapy Exercise Log - 10/26/19 1128 OTHER Precautions/Contraindications ankle instability, Lower leg in ER Notes knee strengthening, quadricep activation, Knee ROm, Cold compression Treatment Plan: Frequency of Visits: twice per week Duration: 6 weeks Interventions: Therapeutic Exercise, Manual Therapy, Hot/Cold Pack and Vasopneumatic Rehab Potential: fair Goals: Physical Therapy Ortho Goals: 1. The patient will safely, correctly and independently demonstrate the ability to perform a progressive HEP to achieve maximal rehabilitation potential and prevent this condition from recurring. 6 weeks 2. The patient will demonstrate increased strength of quadricep 4/5 (3/5) to increase tolerance to functional activities such as participation in ADLs, IADLs with pain 0-3/10. 6 weeks 3. The patient will demonstrate good understanding of post surgery exercises to help with post oprative recovery. 6 weeks Patient Education provided: Patient was educated about the condition, precautions, and physical therapy plan of care. Clinical Impression: Pt is a 54 y.o. year old male who presented to the clinic with knee pain and signs/symptoms consistent with right OA. Patient displays impairments of right knee pain, limited ROMand strength, lower leg stays in lower leg external rotation with knee extension, ankle instability, welling and pain. Pt to benefit from individualized treatment plan in order to improve strength ofthe knee for overall function and mobility Do Parrish PT STATE LICENSE, [id number] documented in this encounter* Jhonny Medel MD - 01/04/2020 3:09 PM EDT Interventional Cardiology Clinic Note ID: Carmen Gilman is a 54 y.o. male : 1965 CC: Preop cardiac risk stratification HPI: I had the pleasure of evaluating Mr. Carmen Gilman at [facility] in [place] today. He is referred by Dr. Sofía Dukes for cardiac evaluation prior to his right TKR. He is a 54 y.o. pleasant male with COPD, hypertension, and degenerative osteoarthritis of right knee. Carmen lives on the third floor apartment. He climbs 2 flights of stairs every day. He does the laundry and laundry mat and has to carry fresh laundry and grocery bags for 2 flights of stairs. He does not get angina pectoris, shortness of breath, dyspnea on exertion, orthopnea, PND, palpitation, presyncope, or syncope. His main physical limitation is due to osteoarthritis. He has a chronic bilateral lower extremity swelling, unchanged. He has been out of his BP medication for 2 days and his bloodpressure is elevated today. He has no family history of premature CAD/stroke. Past Medical History: Diagnosis Date Anxiety Arthritis Asthma COPD (chronic obstructive pulmonary disease) (HCC) Diabetes (HCC) Hypertension Past Surgical History: Procedure Laterality Date APPENDECTOMY FOOT SURGERY Left MANDIBLE FRACTURE SURGERY THORACIC DUCT LIGATION 01/15/2017 Current Outpatient Medications on File Prior to Visit Medication Sig Dispense Refill albuterol (PROVENTIL) 2.5 mg /3 mL (0.083 %) nebulizer solution Take 3 mL (2.5 mg total) by nebulization every 6 (six) hours as needed for wheezing . 75 mL 0 albuterol 90 mcg/actuation inhaler Inhale 2 puffs every 6 (six) hours as needed for wheezing. buprenorphine HCl (SUBUTEX) [address] 8 mg under the tongue 2 (two) times a day. gabapentin (NEURONTIN) 800 MG tablet Take 800 mg by mouth 3 (three) times a day. lisinopril (PRINIVIL,ZESTRIL) 20 MG tablet Take 20 mg by mouth daily. tiotropium-olodaterol (STIOLTO) 2.5-2.5 mcg/actuation Mist respimat inhaler Inhale 2.5 mcg daily. No current facility-administered medications on file prior to visit. No Known Allergies Social History Tobacco Use Smoking status: Former Smoker Last attempt to quit: 01/25/2007 Years since quittin.9 Smokeless tobacco: Current User Types: Chew Substance Use Topics Alcohol use: No family history includes Diabetes in his mother; Heart disease in his mother. Review of Systems: Constitutional: No fever, headache, or lethargy HEENT: No sore throat Respiratory: No cough, wheeze, or Raynaud's Cardiovascular: No fatigue GI: No nausea, vomiting, diarrhea, constipation : No dysuria, urgency, frequency Integumentary: No rash, urticaria Musculoskeletal: No arthralgia, joint swelling Endocrinology: No heat or cold intolerance Neurologic: No confusion OBJECTIVE BP (!) 152/89 Pulse 83 Ht 6' Wt 117.9 kg (260 lb) SpO2 92% BMI 35.26 kg/m General Appearance: Pleasant man. Not in acute distress HEENT: pink conjuctivae. Anicteric sclera. Moist oral mucosa. Respiratory: good air entry bilaterally. No wheeze or crackles. Cardiovascular: good peripheral pulses. JVP is flat. Regular rate and rhythm. Normal S1-S2. No murmur/gallop/rub. Abdomen: soft. Non-tender. Non-distended. Normal BS. CHARMAINE: no CVAT ERICKA: +1 bilateral lower extremity edema. Skin: no rash. No cyanosis. No clubbing. Neurology: No gross motor or sensory deficit. Psych: alert and oriented X3 . Good mood and affect. Labs and Cultures: Lab Results Component Value Date NA 137 01/03/2020 K 3.7 01/03/2020 CL 104 01/03/2020 BUN 19 01/03/2020 Lab Results Component Value Date WBC 3.73 (L) 01/03/2020 HGB 11.0 (L) 01/03/2020 PLT 154 01/03/2020 Lab Results Component Value Date ALT 44 05/05/2017 HGBA1C 5.1 01/03/2020 TSH 3.07 05/05/2017 ECG (I independently reviewed EKG and the reveals):-Normal sinus rhythm. Rate 83. QTc 451 ms. ASSESSMENT: ? Preop cardiac risk calcification ? Severe degenerative right knee ? Hypertension ? COPD Cardiac risk: going for intermediate risk surgery. He has no active cardiac symptoms. His exercise tolerance is > 4 METS. His RCRI score is 0 suggestive of low risk of MACE (< 1%). Can proceed with surgery HTN: not at goal. He has been out of lisinopril for 2 days PLAN: 1. Can proceed with surgery with no need for further cardiac testing 2. Restart lisinopril Jhonny Medel MD, FACC Interventional Cardiology/Structural Heart Disease [facility] documented in this encounter* Palmer Givens PA - 10/30/2019 2:30 PM EDT History of Present Illness CVD Patient has a hx of HTN. He notes hx of SOB with exertion over the past few months. He has COPD, former smoker, and uses inhalers as directed. No wheezing or cough. He also notes swelling in the bilateral legs. He is having right knee pain and is supposed to have right TKA by Dr. Dukes in November.For pre-op testing he will be seeing an [facility] casket trimmer on November 05 for evaluation. He has noticed increased BP readings at home recently so he increase lisinopril 20 mg to BID and BP levels improved. Denies chest pain, palpitations, tinnitus, vision changes, headache, dizziness, or syncope. Review of Systems Constitutional: Negative for chills, diaphoresis, fatigue and fever. Eyes: Negative. Respiratory: Positive for shortness of breath. Negative for cough and wheezing. Cardiovascular: Positive for leg swelling. Negative for chest pain and palpitations. Gastrointestinal: Negative for abdominal pain and blood in stool. Genitourinary: Negative for dysuria. Musculoskeletal: Positive for arthralgias and gait problem. Negative for back pain. Skin: Negative for color change, pallor, rash and wound. Neurological: Negative for dizziness and headaches. Hematological: Negative for adenopathy. Does not bruise/bleed easily. Vitals: Blood pressure 112/70, pulse 85, resp. rate 16, height 1.829 m (6'), weight (!) 137.6 kg (303 lb 6.4 oz), SpO2 96 %. Physical Exam Vitals signs and nursing note reviewed. Eyes: Pupils: Pupils are equal, round, and reactive to light. Neck: Musculoskeletal: Normal range of motion. Thyroid: No thyromegaly. Cardiovascular: Rate and Rhythm: Normal rate and regular rhythm. Heart sounds: Normal heart sounds. No murmur. Comments: No erythema, warmth, discharge, or calf tenderness. Pulmonary: Effort: Pulmonary effort is normal. No respiratory distress. Breath sounds: Normal breath sounds. No stridor. No wheezing, rhonchi or rales. Abdominal: General: Bowel sounds are normal. Palpations: Abdomen is soft. Musculoskeletal: Right knee: He exhibits decreased range of motion. He exhibits no swelling. Tenderness found. Medial joint line tenderness noted. Right lower le+ Pitting Edema present. Left lower le+ Pitting Edema present. Skin: General: Skin is warm and dry. Findings: No bruising, erythema, lesion or rash. Neurological: General: No focal deficit present. Mental Status: He is alert and oriented to person, place, and time. Mental status is at baseline. Sensory: No sensory deficit. Motor: No weakness. Gait: Gait abnormal. Neurologic Exam Mental Status Oriented to person, place, and time. Cranial Nerves CN III, IV, Pupils are equal, round, and reactive to light. Assessment and Plan 1. Essential hypertension - lisinopril 40 MG tablet; Take 1 tablet by mouth daily. Dispense: 30 tablet; Refill: 0 - furOSEmide (Lasix) 20 MG tablet; Take 1 tablet by mouth daily. Dispense: 30 tablet; Refill: 0 - ECHOCARDIOGRAM 2. SOB (shortness of breath) on exertion - ECHOCARDIOGRAM - XR CHEST PA AND LATERAL; Future 3. Leg edema - ECHOCARDIOGRAM Medical Decision Making Increase lisinopril, add on lasix, get CXR and echo, see cardio, and follow up once testing is complete. documented in this encounter* Ashley Kumar RN - 11/07/2019 12:53 AM EDT Pt left at 0050 AMA. AxOx4. Pt states understanding of risks of leaving AMA and the importance of staying in the hospital for treatment. Pt stated he wishes to leave anyway. * Ashley Kumar RN - 11/07/2019 12:[address] Smith notified via telephone that Pt wishes to leave AMA. * Ashley Kumar RN - 11/07/2019 12:36 AM EDT Pt states he would like to leave AMA. Pt is AxOx4. Pt educated on the benefits of staying in the hospital, the importance of treatment and the need to receive antibiotic therapy. Pt education on the risks of leaving AMA, including also provided. Pt states clear understanding, but continues tosay that he wishes to leave AMA. Pt encouraged to go to an ER in [place] if his respiratory symptoms return/worsen. Pt also educated that he is in no condition to leave medical care and drive home at this time. Pt states that he understands our concern, however he plans to leave anyway. * Monica Bowen RCP - 11/06/2019 9:32 PM EDT PT requested not to be woke up during the night for breathing txs. He said he would call if he needs one during the night. * Ashley Kumar RN - 11/06/2019 7:57 PM EDT Pt continues to c/o R Knee pain and is given Tylenol prn. Pt states understanding that he is currently not ordered anything stronger for his chronic pain. * Ashley Kumar RN - 11/06/2019 7:41 PM EDT Pt states that he needs his Buprenophine and plans to leave AMA tomorrow if he does not receive hisBuprenophine or gets an order for a stronger pain medication. Pt told that we do not carry Buprenorphine here and we can not get him opoid medication as of now for his chronic pain. Provided Pt education on his current condition and the importance of his antibiotic therapy. Pt states understanding but continues to express the desire to leave AMA tomorrow morning. Pt also educated that [facility] is a tobacco free hospital and he can not use tobacco products within our facility. * Heaven Croft LSW - 11/06/2019 1:15 PM EDT SW met with pt during quality rounds to complete assessment. Pt is alert and oriented but mumbles and is difficult to understand at times. pt is a 54 year old male admitted for pneumonia and influenza. Pt lives alone in his residence in [place]. Pt was not utilizing any services in his home priorto admission. Pt drives and is able to get himself to follow up appointments. Pt has a cane to use to ambulate with and a nebulizer for breathing treatments at home. Pt is a full code and follows with Dr Lee as his PCP. Pt does not have advance directives but didrequest information regarding these. SW provided packet and brochure and offered assistance when ptwas ready to complete these and pt expresses understanding but does not want to delve into the information at the current time. Pt is able to afford his medications without any concerns. Pt plans to return home at discharge. Pt identifies no additional needs or concerns at this time for returning home. SW will remain available as needed. KELSEY Headley 11/06/2019 * Viv Holly RN - 11/06/2019 9:27 AM EDT Pt refuses Lovenox injection; pt educated on importance of ordered medication but patient continuesto refuse. * Felipe Davis [facility] - 11/06/2019 6:29 AM EDT Pharmacy Note Vancomycin Consult Carmen Gilman is a 54 y.o. male started on Vancomycin for pneumonia; consult received from Dr. Smith to manage therapy. Also receiving the following antibiotics: Zosyn. Patient Active Problem List Diagnosis Severe obesity (BMI 35.0-39.9) Open neck wound Pneumonia Allergies: Patient has no known allergies. Temp max: 101.2 F Recent Labs 11/06/19 0210 BUN 15 Recent Labs 11/06/19 0210 CREATININE 0.69* Recent Labs 11/06/19 0210 WBC 4.4 No intake or output data in the 24 hours ending 11/06/19 0625 Culture Date Source Results Pending Ht Readings from Last 1 Encounters: 11/06/19 6' (1.829 m) Wt Readings from Last 1 Encounters: 11/06/19 283 lb 3.2 oz (128.5 kg) Body mass index is 38.41 kg/m . Estimated Creatinine Clearance: 172 mL/min (A) (based on SCr of 0.69 mg/dL (L)). Goal Trough Level: 15-20 mcg/mL Assessment/Plan: Will initiate vancomycin 1750 mg IV every 12 hours. Timing of trough level will be determined basedon culture results, renal function, and clinical response. Thank you for the consult. Will continue to follow. Grupo Davis PharmD 11/06/2019 6:27 AM documented in this encounter* Sofía Dukes MD - 01/08/2020 4:52 PM EDT Orthopedic Total Knee Progress Note Assessment/Plan: Status Post right Total Knee Arthroplasty: Doing well postoperatively. Discharge today, Return to Clinic: 2 weeks LOS: 0 days Subjective: Post-Operative Day: 0 Status Post right Total Knee Arthroplasty Systemic or Specific Complaints:No Complaints Objective: Vital signs in last 24 hours: Temp: [97.7 F (36.5 C)-99 F (37.2 C)] 97.7 F (36.5 C) Heart Rate: [68-81] 70 Resp: [12-20] 20 BP: (122-157)/(65-90) 150/76 General: alert, appears stated age and cooperative Wound: Wound clean and dry no evidence of infection. Motion: Extension: Full Extension DVT Exam: No evidence of DVT seen on physical exam. Data Review CBC: Lab Results Component Value Date WBC 3.73 (L) 01/03/2020 WBC 5.0 05/05/2017 RBC 4.99 01/03/2020 HGB 11.0 (L) 01/03/2020 HGB 11.6 (L) 05/05/2017 HCT 36.0 (L) 01/03/2020 HCT 36.9 (L) 05/05/2017 PLT 154 01/03/2020 PLT 122 (L) 05/05/2017 * Radha Brooks, PT - 01/08/2020 3:54 PM EDT Physical Therapy PHYSICAL THERAPY TREATMENT NOTE Skilled Therapy Needs After Discharge Anticipate Resolution of Current Assessment Limitations Including: Pain Are Skilled Therapy Services Needed After Discharge: Yes Intensity of Skilled Therapy: 2-3 days per week Anticipated Duration of Skilled Therapy: Duration 10 - 30 days DME Recommendation: Wheeled walker DME Rationale: Patient's condition creates an increased risk of safety hazard without recommended equipment Rehab Potential: Good Outcomes Measures Prior Function - Basic Mobility Raw Score: 24 Points Prior Function - Basic Mobility % Impaired: 0% functionally impaired AM-PAC - Basic Mobility Raw Score: 17 Points AM-PAC - Basic Mobility % Impaired: 43.83% functionally impaired Activity Tolerance Activity Tolerance: Tolerates 30 min acitivty with multiple rests Therapy Precautions Orthotic Devices: No Weight Bearing Status: X RLE: Full Wt bearing General Rehab Precautions: Fall risk Released to nursing: assist x 1 with ww Bed Mobility Supine to Sit: Stand by assistance Sit to Supine: Stand by assistance Skilled Intervention: Significantly increased time to complete d/t high pain levels, weakness, and SOB. Transfers Sit to Stand: Stand by assistance Bridge Construction Inspector: Wheeled walker Skilled Intervention: Pt educated on an performed sit to stand transfer with sba . Gait/Locomotion Gait Assistance: Contact guard Assistive Device: Wheeled walker Distance: 40 Feet Pattern: Step to, R Decreased stance time, R impaired heel strike, R decreased step length Stair Management Technique: One rail R Stair Management Assistance: Contact guard Number of Stairs: 20 Skilled Intervention: Pt demonstrates slow step to gait pattern with frequent standing rest breaks and rigid extension to Rt LE. Pt instructed on and performed stair navigation using 1 rail and step to gait pattern with folded ww cga. Pt completed 20 steps as needed at home. Home Living Type of Home: Apartment Home Layout: One level, Stairs to enter with rails(Full flight of steps to access 2nd floor apt. ) Bathroom Shower/Tub: Tub/shower unit Bathroom Toilet: Standard Bathroom Accessibility: Accessible via walker Home Equipment: Cane Prior Level of Function Level of Boutte: Needs assistance with ADLs, Needs assistance with functional transfers, Needs assistance with homemaking Lives With: Significant other Receives Help From: Family ADL Assistance: Needs assistance Dressing: Minimal Homemaking Assistance: Needs assistance Homemaking Assistance Comments: Total Vocational: On disability Comments: Mod indep with cane for short distances. SO assists with bed mobility and LB dressing. Patient reports to perform own bathing and toileting, "as best I can". For complete objective data, detailed plan of care and patient education refer to: PT EVALUATION flow sheet, PT TREATMENT flow sheet, patient Plan of Care, Plan of Care progress note, and Patient Education. This note stands as the current Discharge Summary upon patient discharge from the hospital or completion of Physical Therapy Plan of Care. documented in this encounter* Daria Dumont LPN - 01/15/2020 1:58 PM EDT Physical therapy Home health called today patient refused physical therapy today. documented in this encounter* Daria Dumont LPN - 01/22/2020 8:14 AM EDT Patient missed his home therapy visit per Sorin . Patient declined appointment . documented in this encounter* Sofía Dukes MD - 01/24/2020 8:59 AM EDT Dictation on: 01/24/2020 9:00 AM by: SOFÍA DUKES [[id number]] documented in this encounter* Sb Andino MD - 04/22/2020 2:26 PM EDT Impression: 1. Toe dislocation, left, subsequent encounter 2. Arthritis of first metatarsophalangeal (MTP) joint of left foot 3. Acquired pes planovalgus of right foot 4. Arthritis of right foot Plan: The above diagnosis as well as the options for treatment were discussed with Carmen in clinic today. At this time we recommend the following: I last CT scan is 2 years old. I like to repeat the CT scan on his right foot. This patient understands that he will need to be nonweightbearing for a minimum of 6 weeks after surgery. He states he has adequate help at home at this point in time in order to undergo surgery. He will follow-up after the CT scan Carmen was agreeable to the plan and there were no learning barriers encountered. Follow-Up: After CT scan Subjective: Carmen Gilman is here for a follow visit in regards to his right pes planovalgus deformity with midfoot arthritis and left first MTP joint arthritis with second toe deformity. This patient previously underwent a right total knee arthroplasty by my partner Dr. Dukes. He states he is doing very wellfrom that. However he continues to have pain in his bilateral feet. His right is worse than his left. Smoking status, allergies, medications, and non-medications were reviewed and updated as appropriate in Epic. He is not a current tobacco user. He is not a diabetic. Exam: Vitals: 04/22/20 1404 BP: 138/85 Pulse: 86 Weight: 130.2 kg (287 lb) Height: 6' The patient is awake, alert and orientated x3, and in no apparent distress. Standing: Pes planovalgus deformity Palpation: Tenderness to palpation across the tarsometatarsal joints. Tenderness in the sinus Tarsi ROM / Strength Decreased ankle range of motion. Strength not assessed Neurovascular Exam Intact. Skin Intact Radiology: Radiographs of the right foot show degenerative changes at the first MTP joint as well as the firstsecond and third greater than fourth and fifth tarsometatarsal joint. There are also some degenerative changes at the talonavicular joint. He has collapse of his longitudinal arch through his midfoot. There is also quite likely degenerative change in the subtalar joint Radiographs of the right foot performed on today's date show end-stage arthritis at the first MTP joint. There is also deformity at the second PIP joint with subluxation of the joint and significant degenerative change. CC: Mari Lee MD documented in this encounter* Sb Andino MD - 06/30/2020 4:52 PM EST Impression: 1. Acquired pes planovalgus of right foot 2. Arthritis of right foot Plan: The above diagnosis as well as the options for treatment were discussed with Carmen in clinic today. At this time we recommend the following: I discussed options with this patient. Once again I stated that he could add injections in the midfoot for his pain due to arthritis. He states that he is already tried these in these did not give him relief. He is interested in surgical treatment. I recommended a first second and third tarsometatarsal fusion with possible augmentation with bone wedge. I also recommend a subtalar fusion with medial displacement calcaneal osteotomy as needed and possible tendo Achilles lengthening. I discussed that if he needed additional fusion such as a full triple arthrodesis at the time in order to correcthis overall architecture there should be performed. He understands. In addition we went over weightbearing after surgery. Initially he was seen in physical therapy when we were seeing him a few years ago. They recommended placement in a nursing facility after surgerybecause he was unable to maintain a nonweightbearing status. I discussed this with him once again. If he does not pass physical therapy after surgery he may need to go to a care home. He states that he lives on a second floor and has to take stairs up. He says that if he has surgeryand goes home he will go and live in a motel for 2 months. Informed consent for treatment of Carmen Gilman to be surgically treated with surgery as listed abovewas obtained during which I discussed: the nature, description, and purpose of the planned procedure the benefits and risks involved in the treatment or procedure, including the prospects for success and the likely results of the proposed treatment/procedure the possibility of complications and/or side effects and what those complications/side effects might be reasonable alternative treatments available as well as the prognosis if treatment or procedure is not done that additional unforeseen procedures may be indicated based upon the operative findings Risks unique to this case include, but are not limited to, pain, infection, bleeding, neurovascularcompromise, non-union, malunion, disability, deformity, hardware failure, need for further surgery,risks of anesthesia, DVT, PE, CVA, [place], and . The patient was asked to "repeat back" understanding of the above conversation and additional clarification was provided as needed. A witness has documented that the patient read the consent form, reported understanding, and was given the opportunity to ask questions. Carmen was agreeable to the plan and there were no learning barriers encountered. Follow-Up: Postop Subjective: Carmen Gilman is here for a follow visit in regards to his right greater than left foot pain. He has significant midfoot arthritis across the right foot as well as a pes planovalgus deformity.. He is here today to review the results of his CT scan films. Since his last appointment he states his symptoms have been essentially the same in the right foot. He also has pain in his left forefoot. He wonders if something can be done about them in the future. Smoking status, allergies, medications, and non-medications were reviewed and updated as appropriate in [facility]. He is not a current tobacco user. He is not a diabetic. Exam: Vitals: 06/30/20 1325 BP: 138/83 Pulse: 89 Weight: 130.2 kg (287 lb) Height: 6' The patient is awake, alert and orientated x3, and in no apparent distress. Standing: Antalgic gait. Valgus hindfoot with pes planovalgus deformity. Palpation: Tenderness to palpation across the midfoot. Also pain along the medial cuneiform and navicular as they contact the ground. ROM / Strength Decreased ankle dorsiflexion. Strength is grossly intact. Neurovascular Exam Intact. Skin Intact. Radiology: CT scan films performed on 06/11/2020 was reviewed at today's visit with Carmen. The study demonstrated significant degenerative changes at the first through fifth tarsometatarsal joints. Significant degenerative change at the posterior facet of the subtalar joint. Degenerative change at the first MTP joint as well as the hallux interphalangeal joint. CC: Mari Lee MD documented in this encounter* Marcin Moran RN - 07/09/2020 8:44 PM EST Patient wanting to leave AMA. Confirmed that patient signed paper work . Removed patients right upper arm PICC line, Tavera and left forearm IV. * Gerda Carcamo RN - 07/09/2020 8:29 PM EST Patient requesting to leave AMA. Educated that it is in his best interest to stay. Educated on new medications that he will not receive if he does leave AMA, including Xarelto and cardizem. Also, appears to be short of breath at this time. Stating that he needs his suboxone or he is leaving. [facility] called and updated. AMA paper signed per patient. weight calculator in room to discontinue PICC line, IV,and Tavera catheter. * Mayur Hernandez MD - 07/09/2020 5:44 PM EST NEPHROLOGY PROGR[facility] Patient Name: Carmen Gilman Admit Date: MR #: [id number] : 1965 ASSESSMENT/PLAN: 1. Edema - probably due to right heart failure. Doubtful this is nephrotic range proteinuria. UA did not show any proteinuria. Random protein in urine at 630 however did not do with urine creatinine.Will repeat spot urine protein to creatinine ratio to make sure. Has good urine output on lasix 40 mg q 8 hours. Subjective: Denies any new complaint Review of Systems: ROS otherwise reviewed and negative Physical Examination: Vitals: Vitals: 07/09/20 1122 07/09/20 1200 07/09/20 1514 07/09/20 1700 BP: (!) 110/58 119/60 (!) 144/72 BP Location: Left arm Patient Position: Sitting Pulse: 81 (!) 55 (!) 52 Resp: 16 14 (!) 22 Temp: 97.2 F (36.2 C) TempSrc: Oral SpO2: 92% 94% 93% 93% Weight: Height: Intake/Output last 3 shifts: Intake/Output Summary (Last 24 hours) at 07/09/2020 1744 Last data filed at 07/09/2020 1731 Gross per 24 hour Intake 707.93 ml Output 6150 ml Net -5442.07 ml I/O last 3 completed shifts: In: 1525.9 [I.V.:1325.9; NG/GT:100; IV Piggyback:100] Out: 6000 [Urine:5850; Emesis/NG output:150] General: No acute distress HEENT: Anicteric Neck: Supple CV: Regular rate, no murmurs or rubs. +2 lower extremity edema Lungs: CTA B Abd: Soft, nontender, bowel sounds present Results/Medications Reviewed 07/09/20 5:44 PM: Laboratory, Microbiology, Pathology, Radiology, Cardiology, Medications and Transcriptions reviewed Scheduled Meds: aspirin 81 mg Oral Daily atorvastatin 40 mg Oral Nightly cholecalciferol (vitamin D3) 5,000 Units Oral Daily diltiazem 240 mg Oral Daily famotidine 20 mg Oral Q12H [facility] furosemide 40 mg Intravenous Q8H [facility] lispro insulin 0-15 Units Subcutaneous at bedtime insulin lispro 0-30 Units Subcutaneous TID AC ipratropium-albuteroL 3 mL Inhalation Q4H [facility] predniSONE 40 mg Oral Daily rivaroxaban 20 mg Oral Daily senna-docusate 1 tablet Oral BID sodium chloride (PF) 10 mL Intracatheter Q8H [facility] sodium chloride (PF) 5 mL Intravenous Q8H [facility] Continuous Infusions: sodium chloride 0.9 % Results from last 7 days Lab Units 07/09/20 0942 07/09/20 0617 07/08/20 0931 WBC K/mcL 6.05 5.01 8.61 8.61 HGB g/dL 9.9* 9.6* 11.8* 11.8* HCT % 31.6* 30.8* 38.2* 38.2* PLT K/mcL 114* 107* 200 200 Results from last 7 days Lab Units 07/09/20 0617 07/08/20 0616 07/08/20 0156 07/07/20 2243 SODIUM mmol/L 136 137 -- 136 POTASSIUM mmol/L 4.4 5.1 -- 4.2 CHLORIDE mmol/L 104 105 -- 104 BICARB mmol/L 31 26 -- 21 BUN mg/dL 30* 20 -- 16 CREATININE mg/dL 0.82 0.96 -- 1.05 EGFR mL/min/1.73 m2 101 90 -- 41* GLUCOSE mg/dL 154* 147* -- 188* CALCIUM mg/dL 8.1* 8.1* -- -- MAGNESIUM mg/dL 2.4 -- 2.0 -- Urinalysis Results from last 7 days Lab Units 07/08/20 1100 07/07/20 2334 COLOR, UR Yellow Yellow CLARITY, UR Clear Clear SPEC GRAV 1.035* 1.016 PH, UR 5.0 6.5 GLUCOSE, UR mg/dL Negative 50 * KETONES, UR mg/dL Negative Negative BILIRUBIN, UR Negative Negative UROBILINOGEN, UR mg/dL <2.0 <2.0 BLOOD, UR Moderate* Moderate* NITRITE, UR Negative Negative LEUK VALERY, UR Negative Negative MUCUS, UR /lpf Rare Rare WBC, UR /hpf 5 7* BACTERIA, UR /hpf None Seen Rare* HYALINE CASTS /lpf -- 0-2 CREATININE UR mg/dL 29.1 -- * Krys Murrell MD - 07/09/2020 4:29 PM EST [facility] Medicine Inpatient Follow-up 07/09/2020 Krys Murrell MD [facility] Patient: Carmen Gilman Date of : 1965 (54 y.o.) PCP: Mari Lee MD ASSESSMENT/PLAN: Carmen Gilman 54 y.o. male presented with complains of shortness of breath and altered mental status Principal Problem: Acute exacerbation of chronic obstructive pulmonary disease (COPD) ([facility]) Active Problems: Acute on chronic respiratory failure with hypoxia and hypercapnia (HCC) Essential hypertension Atrial fibrillation with rapid ventricular response (HCC) Acute congestive heart failure (HCC) Morbid obesity with BMI of 40.0-44.9, adult (HCC) Type 2 diabetes mellitus, without long-term current use of insulin ([facility]) PLAN: Acute metabolic encephalopathy resolved AMMONIA elevated on admission Check ammonia in a.m. 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 related to acute pulmonary edema secondary to A. fib RVR or anyopioid overdose, patient declines any drug use CTA for study but rules out large pulmonary embolism or pneumonia Patient extubated 07/08, on room air Atrial Fibrillation with RVR, possible CHF, type II NSTEMI - Cardiology Following - TTE with some pulmonary HTN and RV dysfunction - suspect this is underestimated - consider Sleep Consult for possible REILLY -Continue p.o. Cardizem and Xarelto Bilateral lower extremities l Edema - severe, ALBUMIN 2.8 - unclear if he has protein wasting - nephrotic syndrome -Check UA , creatinine to protein ratio - continue diuresis -Check bilateral lower extremity Doppler needs to rule out DVT SUBJECTIVE: Patient denies any chest pain or shortness of breath All other systems reviewed and negative other than noted above. OBJECTIVE: Physical Examination: BP 119/60 Pulse (!) 55 Temp 97.2 F (36.2 C) (Oral) Resp 14 Ht 6' Wt (!) 140 kg (308 lb 10.3 oz) SpO2 93% BMI 41.86 kg/m General Appearance: Alert, well appearing, and in no acute distress. HEENT: Head - Normocephalic, atraumatic. Eyes - SHIVAM bilaterally and EOMI. Ears - normal external appearance, hearing intact. Nose - normal, no erythema. Throat - mucous membranes moist, pharynx without lesions. Neck: Supple, trachea midline. Cardiovascular: S1, S2 normal. No murmurs, rubs, clicks or gallops appreciated. 3+ edema bilaterally Respiratory: Lungs clear to auscultation, no wheezes, rales or rhonchi heard. Abdomen: Soft, non-tender, normal bowel sounds, non-distended, no masses or organomegaly appreciated. Neurological: Grossly normal motor and sensory exam. No focal deficits. Musculoskeletal: No joint tenderness, deformity or swelling. Skin: Normal coloration and turgor. No rashes. Psych: Alert, oriented x 3. Normal mood and affect. CURRENT MEDICATIONS: aspirin 81 mg Oral Daily atorvastatin 40 mg Oral Nightly cholecalciferol (vitamin D3) 5,000 Units Oral Daily diltiazem 240 mg Oral Daily famotidine 20 mg Oral Q12H [facility] furosemide 40 mg Intravenous Q8H [facility] lispro insulin 0-15 Units Subcutaneous at bedtime insulin lispro 0-30 Units Subcutaneous TID AC ipratropium-albuteroL 3 mL Inhalation Q4H [facility] predniSONE 40 mg Oral Daily rivaroxaban 20 mg Oral Daily senna-docusate 1 tablet Oral BID sodium chloride (PF) 10 mL Intracatheter Q8H [facility] sodium chloride (PF) 5 mL Intravenous Q8H [facility] Results/Medications Reviewed 07/09/20 4:29 PM: Results from last 7 days Lab Units 07/09/20 0617 07/08/20 0616 07/07/20 2243 SODIUM mmol/L 136 137 136 POTASSIUM mmol/L 4.4 5.1 4.2 CHLORIDE mmol/L 104 105 104 BUN mg/dL 30* 20 16 CREATININE mg/dL 0.82 0.96 1.05 GLUCOSE mg/dL 154* 147* 188* CALCIUM mg/dL 8.1* 8.1* -- Results from last 7 days Lab Units 07/09/20 0942 07/09/20 0617 07/08/20 0931 WBC K/mcL 6.05 5.01 8.61 8.61 HGB g/dL 9.9* 9.6* 11.8* 11.8* HCT % 31.6* 30.8* 38.2* 38.2* PLT K/mcL 114* 107* 200 200 Results from last 7 days Lab Units 07/08/20 0616 07/08/20 0156 07/07/20 2243 TROPONIN I ng/L 152* 146* <15 Results from last 7 days Lab Units 07/09/20 0617 07/09/20 0206 07/08/20 1642 07/08/20 0931 INR -- -- -- 1.1 PTT seconds 138* 58* 59* 33 Results from last 7 days Lab Units 07/08/20 0616 07/07/20 2243 ALK PHOS U/L 58 85 BILIRUBIN TOTAL mg/dL 0.8 0.7 BILIRUBIN DIRECT mg/dL -- 0.4 TOTAL PROTEIN g/dL 7.8 8.4* ALTR U/L 52 50 AST U/L 55* 57* CULTURES: Reviewed 4:29 PM IMAGING: Reviewed 4:29 PM * Pio Sequeira MD - 07/09/2020 8:25 AM EST CRITICAL CARE CONSULT 07/09/2020 Patient: Carmen Gilman Date of : 1965 Site: [facility] Referring Provider: Refer to consult order in electronic medical record Provider: Pio Sequeira MD ASSESSMENT/PLAN: Carmen Gilman 54 y.o. male with history of possible COPD, HTN, prior heroin abuse previously on Suboxone, current marijuana abuse, and knee replacement who presents to ED with SOB. EMS arrives to find patient with SpO2 of 76%. NRB applied, nebulizer and 125mg SoluMedrol given. Decision made to intubatein ED due to retractions noted. Patent admitted for COPD exacerbation, new onset atrial fibrillation, and decompensated CHF. Acute Hypoxemic Hypercarbic Respiratory Failure - somewhat unclear etiology - CXR not impressive for COPD/emphysema or overt pulmonary edema. - CTA is a poor study, but does not show a large central PE or pneumonia - agree with diuresis given peripheral edema - ?opiate overdose - patient denies - extubated on 07/08, now on RA Atrial Fibrillation with RVR, possible CHF, type II NSTEMI - Cardiology help appreciated - TTE with some pulmonary HTN and RV dysfunction - suspect this is underestimated - consider Sleep Consult for possible REILLY Metabolic Encephalopathy - ?overdose - resolved Peripheral Edema - severe, does not appear to be severely malnourished - unclear if he has protein wasting - nephrotic syndrome - appreciate Nephrology help - continue diuresis Anemia/Thrombocytopenia - 2g drop in hemoglobin this morning, no evidence of bleeding, but is on heparin - repeat H/H this morning - suspect issues with labs given variability over only hours. - discuss with Cardiology the need for ongoing anticoagulation. 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 - check hemoglobin profile 34 minutes of critical care time provided thus far today not including procedures. OBJECTIVE: Physical Examination: BP 112/63 Pulse (!) 59 Temp 98.1 F (36.7 C) (Oral) Resp 18 Ht 6' Wt (!) 140 kg (308 lb 10.3 oz) SpO2 94% BMI 41.86 kg/m Temp: [97.5 F (36.4 C)-98.3 F (36.8 C)] 98.1 F (36.7 C) Heart Rate: [51-80] 59 Resp: [12-75] 18 BP: (79-151)/(43-84) 112/63 FiO2 (%): 40 SpO2 Readings from Last 1 Encounters: 07/09/20 94% Intake/Output Summary (Last 24 hours) at 07/09/2020 0826 Last data filed at 07/09/2020 0600 Gross per 24 hour Intake 833.38 ml Output 4750 ml Net -3916.62 ml Vital Signs Reviewed. Gen: In no apparent distress, awake and alert, on room air Head: Normocephalic, no lesions, without obvious abnormality. Pharynx: Dental Hygiene adequate. Normal buccal mucosa. Normal pharynx. Neck: nontender, full range of motion, no mass, no focal lymphadenopathy Cardio: regular rate and rhythm, no murmur, brisk capillary refill Resp: distant breath sounds bilaterally, no wheezes or crackles Abd: soft, nontender, nondistended, no hepatosplenomegaly, no mass, normal bowel sounds MSK: Moves all four extremities spontaneously. 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 Letter sent to PCP and patient. documented in this encounter* Palmer Givens PA - 07/14/2020 11:15 AM EST History of Present Illness Hospital Follow Up Patient went to the ED 1 week ago by squad for SOB and passing out. According to ED note he was dx with acute respiratory failure, COPD flare up, and cannabis use disorder. Labs in the ED showed positive D-dimer, neg COVID, vit D Def, elevated BNP, elevated troponin, anemia, and thrombocytopenia. Echo showed LV hyperdynamic systolic function with EF of 75%. EKG evidence of a fib on one EKG. CT scan of the pulm arteries showed small left right pleural effusion. Patient was feeling better and decided to leave AMA. I tried to review records from [facility] ED in care everywhere and I could not find a definitve dx or discharge plan. Today patient is asymptomatic without complaints. He is simply wanting refills on medications. Still smoking marijuana. Review of Systems Constitutional: Negative for chills, diaphoresis, fatigue and fever. Eyes: Negative. Respiratory: Negative for cough, shortness of breath and wheezing. Cardiovascular: Positive for leg swelling. Negative for chest pain and palpitations. Gastrointestinal: Negative for abdominal pain and blood in stool. Genitourinary: Negative for dysuria. Musculoskeletal: Negative for back pain. Skin: Negative for color change, pallor, rash and wound. Neurological: Negative for dizziness, weakness, numbness and headaches. Hematological: Negative for adenopathy. Does not bruise/bleed easily. Psychiatric/Behavioral: Negative for self-injury, sleep disturbance and suicidal ideas. The patientis not nervous/anxious. Vitals: Blood pressure 124/72, pulse 92, temperature 97.5 F (36.4 C), temperature source Temporal, resp. rate 22, height 1.829 m (6'), weight (!) 138.3 kg (305 lb), SpO2 94 %. Physical Exam Vitals signs and nursing note reviewed. Constitutional: Appearance: Normal appearance. Eyes: Pupils: Pupils are equal, round, and reactive to light. Neck: Musculoskeletal: Normal range of motion. Thyroid: No thyromegaly. Cardiovascular: Rate and Rhythm: Normal rate and regular rhythm. Pulses: Carotid pulses are 2+ on the right side and 2+ on the left side. Radial pulses are 2+ on the right side and 2+ on the left side. Heart sounds: Normal heart sounds. No murmur. Comments: No carotid bruit appreciated. Pulmonary: Effort: Pulmonary effort is normal. No respiratory distress. Breath sounds: Normal breath sounds. No stridor. No wheezing, rhonchi or rales. Abdominal: General: Bowel sounds are normal. Palpations: Abdomen is soft. Musculoskeletal: Normal range of motion. Right lower le+ Pitting Edema present. Left lower le+ Pitting Edema present. Skin: General: Skin is warm and dry. Findings: No bruising, erythema, lesion or rash. Neurological: General: No focal deficit present. Mental Status: He is alert and oriented to person, place, and time. Mental status is at baseline. Sensory: No sensory deficit. Motor: No weakness. Psychiatric: Mood and Affect: Mood normal. Behavior: Behavior normal. Thought Content: Thought content normal. Judgment: Judgment normal. Neurologic Exam Mental Status Oriented to person, place, and time. Cranial Nerves CN III, IV, Pupils are equal, round, and reactive to light. Assessment and Plan 1. Chronic obstructive pulmonary disease with acute exacerbation - COMPREHENSIVE METABOLIC PANEL; Future - albuterol 108 (90 Base) MCG/ACT Aero Soln inhaler; Inhale 1 puff every 6 hours as needed for Wheezing. Dispense: 1 Inhaler; Refill: 2 - albuterol (2.5 MG/3ML) 0.083% inhalation solution; Take 3 mL by nebulization every 6 hours as needed. Dispense: 1 Package; Refill: 3 - Glycopyrrolate-Formoterol (Bevespi Aerosphere) 9-4.8 MCG/ACT Aerosol; Inhale 2 puffs 2 times daily. Dispense: 1 Inhaler; Refill: 11 2. Acute respiratory failure, unspecified whether with hypoxia or hypercapnia - COMPREHENSIVE METABOLIC PANEL; Future 3. Atrial fibrillation, unspecified type - COMPREHENSIVE METABOLIC PANEL; Future - AMB REFERRAL TO CARDIOVASCULAR MEDICINE 4. Essential hypertension - furOSEmide (Lasix) 20 MG tablet; Take 1 tablet by mouth daily. Dispense: 30 tablet; Refill: 0 - AMB REFERRAL TO CARDIOVASCULAR MEDICINE 5. Anemia, unspecified type - AMB REFERRAL TO HEMATOLOGY - CBC, EDIF, PLATELET; Future - COMPREHENSIVE METABOLIC PANEL; Future 6. Thrombocytopenia - AMB REFERRAL TO HEMATOLOGY - CBC, EDIF, PLATELET; Future - COMPREHENSIVE METABOLIC PANEL; Future 7. Elevated troponin - COMPREHENSIVE METABOLIC PANEL; Future - AMB REFERRAL TO CARDIOVASCULAR MEDICINE 8. Elevated brain natriuretic peptide (BNP) level - COMPREHENSIVE METABOLIC PANEL; Future - AMB REFERRAL TO CARDIOVASCULAR MEDICINE 9. Marijuana use - COMPREHENSIVE METABOLIC PANEL; Future Medical Decision Making I requested records for review since records in [facility] were limited and patient is a poor historian. He did leave AMA which we discussed was a poor decision, he agreed. I made referral to cardiology and hematology based on the results I reviewed from [facility]. I ordered a CBC and CMP lab to be completed within 1 week with a follow up in office for a check up. Vitals and exam were stable. Asymptomatic without complaints in office today. documented in this encounter* Judith Cruz MA - 07/28/2020 8:27 AM EST Attempted calling patient 3 times to obtain a physical address for event monitor due to [employer]ice not being able to send to a PO box. Unable to reach patient. documented in this encounter* Palmer Givens PA - 09/03/2020 2:00 PM EST History of Present Illness Follow Up At last visit on 07/14/20 patient was seen in office for COPD with respiratory failure, a fib, HTN,anemia, and thrombocytopenia. I ordered CBC and CMP labs with referrals to cardiology and hematology. He did not complete labs or go to referrals as directed. He was seen in ED again at [facility] on 08/01/20 for suspect COVID, no COVID test could be performed according to patient, he quarantined and quit smoking, and symptoms resolved. Overall today he is asymptomatic and requesting refills. Last HbA1c and lipid profile reviewed and stable. COPD symptoms have improved with inhalers and he quit smoking cigs and marijuana since last ED visit due to lung issues. Chronic Pain Hx of chronic back pain and neuropathy in the legs. He is taking buprenorphine from biologics specialist and taking gabapentin daily. No complications or issues with these medications. Needs refills on gabapentin. Review of Systems Constitutional: Negative for chills, diaphoresis, fatigue and fever. Eyes: Negative. Respiratory: Negative for cough, shortness of breath and wheezing. Cardiovascular: Negative for chest pain, palpitations and leg swelling. Gastrointestinal: Negative for abdominal pain and blood in stool. Genitourinary: Negative for dysuria. Musculoskeletal: Positive for arthralgias and back pain. Skin: Negative for color change, pallor, rash and wound. Neurological: Negative for dizziness, weakness, numbness and headaches. Hematological: Negative for adenopathy. Does not bruise/bleed easily. Psychiatric/Behavioral: Negative for dysphoric mood, self-injury, sleep disturbance and suicidal ideas. The patient is not nervous/anxious. Vitals: Blood pressure 124/74, pulse 88, temperature 95.4 F (35.2 C), temperature source Temporal, resp. rate 18, height 1.829 m (6'), weight 128.1 kg (282 lb 8 oz), SpO2 95 %. Physical Exam Vitals signs and nursing note reviewed. Constitutional: Appearance: Normal appearance. Eyes: Pupils: Pupils are equal, round, and reactive to light. Neck: Musculoskeletal: Normal range of motion. Thyroid: No thyromegaly. Cardiovascular: Rate and Rhythm: Normal rate and regular rhythm. Heart sounds: Normal heart sounds. No murmur. Pulmonary: Effort: Pulmonary effort is normal. Breath sounds: Normal breath sounds. Abdominal: General: Bowel sounds are normal. Palpations: Abdomen is soft. Musculoskeletal: Normal range of motion. Right lower leg: No edema. Left lower leg: No edema. Skin: General: Skin is warm and dry. Findings: No bruising, erythema, lesion or rash. Neurological: General: No focal deficit present. Mental Status: He is alert and oriented to person, place, and time. Mental status is at baseline. Sensory: No sensory deficit. Motor: No weakness. Psychiatric: Mood and Affect: Mood normal. Behavior: Behavior normal. Thought Content: Thought content normal. Judgment: Judgment normal. Neurologic Exam Mental Status Oriented to person, place, and time. Cranial Nerves CN III, IV, Pupils are equal, round, and reactive to light. Assessment and Plan 1. Pancytopenia 2. Atrial fibrillation, unspecified type - diltiazem 240 MG Cap SR 24HR capsule XL; Take 1 capsule by mouth daily. Dispense: 30 capsule; Refill: 2 - Aspirin [address] tablet; Take 1 tablet by mouth daily. Dispense: 30 tablet; Refill: 11 3. Essential hypertension - lisinopril 20 MG tablet; Take 1 tablet by mouth daily. Dispense: 30 tablet; Refill: 2 - diltiazem 240 MG Cap SR 24HR capsule XL; Take 1 capsule by mouth daily. Dispense: 30 capsule; Refill: 2 4. Chronic obstructive pulmonary disease, unspecified COPD type 5. Chronic pain syndrome - gabapentin 800 MG tablet; Take 1 tablet by mouth 3 times daily. Dispense: 90 tablet; Refill: 2 Medical Decision Making 1. I recommended repeat CBC but he declines. Number for hematology given to call for an appt. I explained the importance of follow up and potential adverse outcomes of these findings. He is understanding. 2,3. Call cardiology for appt, risks of non-compliance discussed in detail, and I adjusted his meds. Lowered TEDDY, started diltiazem, and refilled ASA. I held on beta emily with hx of lung disease. 4. Improved, continue smoking cessation and inhalers. 5. Refilled gabapentin. OARRS report was reviewed. Supervising physician agrees with me writing this medication. Based on the patient's medical condition I felt the use of this controlled medication was appropriate when considering risk vs reward. documented in this encounter* Rosaline Barba LPN - 01/22/2020 3:23 PM EDT Attempted home nursing visit today, pt did not answer phone or return VM. Arrived at pt's home withno answer at door. Missed visit completed today. Pt has appt with you tomorrow. Thanks! documented in this encounter* Merry Barba LPN - 01/16/2020 10:45 AM EDT I called Carmen today to see how he is doing. LMOM at [phone] and asked to return my call. I also called [phone], no answer, no voice mail set up. documented in this encounter* Merry Barba LPN - 01/18/2020 8:31 AM EDT Error documented in this encounter* Lena Hill, ENVIRONMENTAL EMERGENCIES PLANNER - 09/21/2019 9:13 AM EST Carmen Moeller Gilman 1965 CC: 54 y.o. is a he with No chief complaint on file. . HPI: Knee Pain: Patient complains of right knee pain. This is evaluated as a personal injury. The pain began several years ago. The pain is located global. He describes the symptoms as aching, sharp and throbbing. Symptoms improve with rest. The symptoms are worse with activity, stair climbing, kneeling, deep knee bending, getting up from a chair, sleeping, weight bearing, sitting for prolonged periods of time. The knee has given out or felt unstable. The patient cannot bend and straighten the knee fully. The patient is active in none. Treatment to date has been ice, heat, Tylenol, NSAID's, knee sleeve/brace, cortisone injection, therapy, without significant relief. He has seen Dr. Andino for a foot problem that he said needs surgery but she wants him to have his knee fixed first then she will do the foot surgery. Patient is unable to walk without a cane and he has a antalgic gait. Rateshis pain 9/10 constantly and states that he is unable to complete activities of daily living and this is effecting his life a great deal. He is here today to be referred to Dr. Dukes for a knee replacement. PMH: No Known Allergies Current Outpatient Medications: albuterol (PROVENTIL) 2.5 mg /3 mL (0.083 %) nebulizer solution, Take 3 mL (2.5 mg total) by nebulization every 6 (six) hours as needed for wheezing ., Disp: 75 mL, Rfl: 0 albuterol 90 mcg/actuation inhaler, Inhale 2 puffs every 6 (six) hours as needed for wheezing., Disp: , Rfl: allopurinol (ZYLOPRIM) 300 MG tablet, Take 300 mg by mouth daily., Disp: , Rfl: aspirin-calcium carbonate 81 mg-300 mg calcium(777 mg) Tab, Take 81 mg by mouth ., Disp: , Rfl: buprenorphine HCl (SUBUTEX) 8 mg tablet, Place 8 mg under the tongue 2 (two) times a day., Disp: , Rfl: gabapentin (NEURONTIN) 800 MG tablet, Take 800 mg by mouth 3 (three) times a day., Disp: , Rfl: ibuprofen (ADVIL,MOTRIN) 600 MG tablet, 1 PO q 8 hours PRN pain. Discontinue if GI upset/distress and notify provider.., Disp: 90 tablet, Rfl: 0 indomethacin (INDOCIN) 25 MG capsule, Take 25 mg by mouth 2 (two) times a day., Disp: , Rfl: lisinopril (PRINIVIL,ZESTRIL) 20 MG tablet, Take 20 mg by mouth daily., Disp: , Rfl: tiotropium-olodaterol (STIOLTO) 2.5-2.5 mcg/actuation Mist respimat inhaler, Inhale 2.5 mcg daily.,Disp: , Rfl: Past Medical History: Diagnosis Date Anxiety Asthma COPD (chronic obstructive pulmonary disease) (HCC) Diabetes (HCC) Hypertension Past Surgical History: Procedure Laterality Date APPENDECTOMY FOOT SURGERY Left MANDIBLE FRACTURE SURGERY THORACIC DUCT LIGATION 01/15/2017 Social History Socioeconomic History Marital status: Unknown Spouse name: Not on file Number of children: Not on file Years of education: Not on file Highest education level: Not on file Occupational History Not on file Social Needs Financial resource strain: Not on file Food insecurity Worry: Not on file Inability: Not on file Transportation needs Medical: Not on file Non-medical: Not on file Tobacco Use Smoking status: Former Smoker Last attempt to quit: 01/25/2010 Years since quittin.6 Smokeless tobacco: Current User Types: Chew Substance and Sexual Activity Alcohol use: No Drug use: No Sexual activity: Not on file Lifestyle Physical activity Days per week: Not on file Minutes per session: Not on file Stress: Not on file Relationships Social connections Talks on phone: Not on file Gets together: Not on file Attends lutheran service: Not on file Active member of club or organization: Not on file Attends meetings of clubs or organizations: Not on file Relationship status: Not on file Other Topics Concern Not on file Social History Narrative Not on file ROS: Review of Systems Constitutional: Negative for activity change and fatigue. HENT: Negative. Eyes: Negative. Respiratory: Negative for chest tightness and shortness of breath. Cardiovascular: Negative for chest pain. Gastrointestinal: Negative. Endocrine: Negative. Genitourinary: Negative. Musculoskeletal: Positive for arthralgias, gait problem and joint swelling. Skin: Negative for color change. Allergic/Immunologic: Negative. Neurological: Negative for dizziness, light-headedness and numbness. Hematological: Negative. Psychiatric/Behavioral: Negative for agitation. PE: Physical Exam Constitutional: He is oriented to person, place, and time. He appears well- developed and well-nourished. HENT: Head: Normocephalic and atraumatic. Eyes: Pupils are equal, round, and reactive to light. Neck: Normal range of motion. Neck supple. Cardiovascular: Normal rate and regular rhythm. Pulmonary/Chest: Effort normal and breath sounds normal. Abdominal: Soft. Musculoskeletal: General: Tenderness present. Neurological: He is alert and oriented to person, place, and time. Skin: Skin is warm and dry. Psychiatric: He has a normal mood and affect. His behavior is normal. Right Knee Exam Tenderness The patient is experiencing tenderness in the lateral joint line, medial joint line and patella. Range of Motion Extension: abnormal Flexion: abnormal Tests Rahat: Medial - negative Lateral - negative Varus: negative Valgus: negative Drawer: Anterior - negative Posterior - negative Other Erythema: absent Scars: absent Sensation: normal Pulse: present Swelling: mild Comments: Grinding with flexion and extension Left Knee Exam Left knee exam is normal. Imaging: Reviewed right knee xray that shows severe bone on bone tricompartmental arthritis Diagnosis: Problem List Items Addressed This Visit None Visit Diagnoses Tricompartment osteoarthritis of right knee - Primary Plan: Discussed xray, patient's symptoms, and physical exam findings with the patient. Patient states he has put this off for at least two years but is now ready for surgery because he cannot take the painand difficulty it is causing in his life anymore. He has exhausted all conservative measures without relief, and this needs to be fixed before he can have a foot surgery as well. I will start the patient in physical therapy for pre op strengthening and send a referral to Dr. Dukes for a total knee replacement. Patient understands and agrees to proceed. Aware that Dr. Dukes's office will be calling him to schedule an appointment. Follow Up: Return if symptoms worsen or fail to improve. Lena Hill CNP documented in this encounter* Merry Barba LPN - 01/16/2020 1:59 PM EDT I did speak w Carmen today and he tells me he is doing ok, "coming along slowly" . The swelling is better w elevation and ice. He denies any constipation/n. He is taking 325mg ASA bid and 20mg Protonixqd. documented in this encounter* Daria Dumont LPN - 01/11/2020 11:21 AM EDT Jahaira from [facility] called patient is c/o 05/31 for right TKR . Worried about running out of pain medication due to the holiday weekend. I spoke with Jahaira told her I will ask Dr Dukes this afternoon . Also asked her to tell patient to set up his VM. I tried both numbers in chart no answer. documented in this encounter Summary Purpose Family History No Family History Records FoundNo Family History Records FoundNo Family History Records FoundNo Family History Records FoundNo Family History Records FoundNo Family History Records FoundNo Family History Records FoundNo Family History Records FoundNo Family History Records FoundNo Family History Records FoundNo Family History Records FoundNo Family History Records FoundNo Family History Records FoundNo Family History Records FoundNo Family History Records FoundNo Family History Records Found Advance Directives No Advanced Directives Records FoundDocuments on File Type Date Recorded 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 Livin g Will 04/03/2019 8:34 AM Documents on File Type Date Recorded 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 Livin g Will 09/21/2019 8:34 AM Documents on File Type Date Recorded 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 Livin g Will 01/03/2020 7:53 AM Documents on File Type Date Recorded 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 Livin g Will 01/03/2020 7:53 AM Documents on File Type Date Recorded 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 Living Will Power of Surfacer Operator Latest Code Status on File Code Status Date Activated Date Inactivated Comments Full Code 11/06/2019 5:29 AM Documents on File Type Date Recorded 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 Livin g Will 01/08/2020 12:00 AM Latest Code Status on File Code Status Date Activated Date Inactivated Comments Full Code 01/08/2020 8:43 AM 01/08/2020 10:58 PM Documents on File Type Date Recorded 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 Livin g Will 01/08/2020 12:00 AM Latest Code Status on File Code Status Date Activated Date Inactivated Comments Full Code 01/08/2020 8:43 AM 01/08/2020 10:58 PM Documents on File Type Date Recorded 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 Livin g Will 01/30/2020 2:16 PM Documents on File Type Date Recorded 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 Livin g Will 04/22/2020 2:02 PM Documents on File Type Date Recorded 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 Livin g Will 06/11/2020 12:42 PM Documents on File Type Date Recorded 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 Livin g Will 07/08/2020 12:21 AM Latest Code Status on File Code Status Date Activated Date Inactivated Comments Full Code - Unverified 07/08/2020 1:21 AM 07/09/2020 1 1:01 PM Documents on File Type Date Recorded 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 Livin g Will 06/11/2020 12:42 PM Advance Directives and Livin g Will 07/28/2020 12:21 AM Full Code 01/08/2020 8:43 AM 01/08/2020 10:58 PM Documents on File Type Date Recorded 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 Livin g Will 06/11/2020 12:42 PM Advance Directives and Livin g Will 08/01/2020 8:49 AM Documents on File Type Date Recorded 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 Livin g Will 06/11/2020 12:42 PM Advance Directives and Livin g Will 11/01/2020 4:46 PM Documents on File Type Date Recorded 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 Livin g Will 09/21/2019 8:34 AM Documents on File Type Date Recorded 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 Livin g Will 06/11/2020 12:42 PM Advance Directives and Livin g Will 12/03/2020 12:47 PM Latest Code Status on File Code Status Date Activated Date Inactivated Comments Full Code 12/03/2020 1:59 PM 12/04/2020 5:57 PM Full Code - Unverified 07/08/2020 1:21 AM 07/09/2020 1 1:01 PM Documents on File Type Date Recorded 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 Livin g Will 02/02/2021 4:31 PM Advance Directives and Livin g Will 06/11/2020 12:42 PM Latest Code Status on File Code Status Date Activated Date Inactivated Comments Full Code 11/12/2021 11:56 PM Latest Code Status on File Date Activated Date Inactivated Comments 04/20/2022 5:25 PM 04/21/2022 2:54 PM Full Code - Unverified Date Activated Date Inactivated Comments 09/30/2021 5:36 PM 10/02/2021 5:41 PM Full Code - Unverified Date Activated Date Inactivated Comments 06/03/2021 3:57 PM 06/04/2021 2:47 PM Full Code Date Activated Date Inactivated Comments 12/03/2020 1:59 PM 12/04/2020 5:57 PM Full Code - Unverified Date Activated Date Inactivated Comments 07/08/2020 1:21 AM 07/09/2020 11:01 PM Latest Code Status on File Code Status Date Activated Date Inactivated Comments Full Code 11/12/2021 11:56 PM Latest Code Status on File Code Status Date Activated Date Inactivated Comments Full Code 11/12/2021 11:56 PM Latest Code Status on File Code Status Date Activated Date Inactivated Comments Full Code 11/12/2021 11:56 PM Latest Code Status on File Code Status Date Activated Date Inactivated Comments Full Code 02/26/2023 11:18 PM Code Status History Code Status Date Activated Date Inactivated Comments Full Code 11/12/2021 11:56 PM 02/26/2023 11:18 PM Latest Code Status on File Code Status Date Activated Date Inactivated Comments Full Code - Unverified 04/24/2022 10:14 PM 04/30/2022 5:53 PM Code Status History Code Status Date Activated Date Inactivated Comments Full Code - Unverified 04/20/2022 5:25 PM 04/21/2022 2:5 4 PM Full Code - Unverified 09/30/2021 5:36 PM 10/02/2021 5:41 PM Full Code - Unverified 06/03/2021 3:57 PM 06/04/2021 2 :47 PM Full Code 12/03/2020 1:59 PM 12/04/2020 5:57 PM Latest Code Status on File Code Status Date Activated Date Inactivated Comments Full Code 02/26/2023 11:18 PM Code Status History Code Status Date Activated Date Inactivated Comments Full Code 11/12/2021 11:56 PM 02/26/2023 11:18 PM Latest Code Status on File Code Status Date Activated Date Inactivated Comments Full Code 05/17/2023 11:20 PM 05/23/2023 11:41 PM Code Status History Code Status Date Activated Date Inactivated Comments Full Code - Unverified 04/24/2022 10:14 PM 04/30/2022 5:53 PM Full Code - Unverified 04/20/2022 5:25 PM 04/21/2022 2:5 4 PM Full Code - Unverified 09/30/2021 5:36 PM 10/02/2021 5:41 PM Full Code - Unverified 06/03/2021 3:57 PM 06/04/2021 2 :47 PM Latest Code Status on File Code Status Date Activated Date Inactivated Comments Full Code 06/03/2023 4:02 PM 06/10/2023 11:26 PM Code Status History Code Status Date Activated Date Inactivated Comments Full Code 05/31/2023 1:10 AM 06/03/2023 4:02 PM Full Code 05/17/2023 11:20 PM 05/23/2023 11:41 PM Full Code - Unverified 04/24/2022 10:14 PM 04/30/2022 5:53 PM Full Code - Unverified 04/20/2022 5:25 PM 04/21/2022 2:5 4 PM Latest Code Status on File Code Status Date Activated Date Inactivated Comments Full Code - Unverified 07/29/2023 7:45 PM Code Status History Code Status Date Activated Date Inactivated Comments Full Code 06/03/2023 4:02 PM 06/10/2023 11:26 PM Full Code 05/31/2023 1:10 AM 06/03/2023 4:02 PM Full Code 05/17/2023 11:20 PM 05/23/2023 11:41 PM Full Code - Unverified 04/24/2022 10:14 PM 04/30/2022 5:53 PM Latest Code Status on File Code Status Date Activated Date Inactivated Comments Full Code - Unverified 07/29/2023 7:45 PM 08/11/2023 5: 52 PM Code Status History Code Status Date Activated Date Inactivated Comments Full Code 06/03/2023 4:02 PM 06/10/2023 11:26 PM Full Code 05/31/2023 1:10 AM 06/03/2023 4:02 PM Full Code 05/17/2023 11:20 PM 05/23/2023 11:41 PM Full Code - Unverified 04/24/2022 10:14 PM 04/30/2022 5:53 PM Latest Code Status on File Code Status Date Activated Date Inactivated Comments Full Code - Unverified 07/29/2023 7:45 PM 08/11/2023 5: 52 PM Date Activated Date Inactivated Comments 10/01/2023 2:19 AM 10/10/2023 8:40 PM Date Activated Date Inactivated Comments 07/29/2023 7:45 PM 08/11/2023 5:52 PM Date Activated Date Inactivated Comments 06/03/2023 4:02 PM 06/10/2023 11:26 PM Date Activated Date Inactivated Comments 05/31/2023 1:10 AM 06/03/2023 4:02 PM Date Activated Date Inactivated Comments 05/17/2023 11:20 PM 05/23/2023 11:41 PM Date Activated Date Inactivated Comments 10/01/2023 2:19 AM 10/10/2023 8:40 PM Date Activated Date Inactivated Comments 07/29/2023 7:45 PM 08/11/2023 5:52 PM Date Activated Date Inactivated Comments 06/03/2023 4:02 PM 06/10/2023 11:26 PM Date Activated Date Inactivated Comments 05/31/2023 1:10 AM 06/03/2023 4:02 PM Date Activated Date Inactivated Comments 05/17/2023 11:20 PM 05/23/2023 11:41 PM Directive Description Status Other Directive Code Status: Full Code Current a nd Verified Date Activated Date Inactivated Comments 07/02/2024 9:56 PM 07/05/2024 4:44 PM Date Activated Date Inactivated Comments 07/02/2024 9:28 PM 07/02/2024 9:56 PM Date Activated Date Inactivated Comments 10/01/2023 2:19 AM 10/10/2023 8:40 PM Date Activated Date Inactivated Comments 07/29/2023 7:45 PM 08/11/2023 5:52 PM Date Activated Date Inactivated Comments 06/03/2023 4:02 PM 06/10/2023 11:26 PM Date Activated Date Inactivated Comments 10/16/2024 12:11 AM Date Activated Date Inactivated Comments 07/02/2024 9:56 PM 07/05/2024 4:44 PM Date Activated Date Inactivated Comments 07/02/2024 9:28 PM 07/02/2024 9:56 PM Date Activated Date Inactivated Comments 10/01/2023 2:19 AM 10/10/2023 8:40 PM Date Activated Date Inactivated Comments 07/29/2023 7:45 PM 08/11/2023 5:52 PM Date Activated Date Inactivated Comments 10/16/2024 12:11 AM 10/24/2024 7:48 PM Date Activated Date Inactivated Comments 07/02/2024 9:56 PM 07/05/2024 4:44 PM Date Activated Date Inactivated Comments 07/02/2024 9:28 PM 07/02/2024 9:56 PM Date Activated Date Inactivated Comments 10/01/2023 2:19 AM 10/10/2023 8:40 PM Date Activated Date Inactivated Comments 07/29/2023 7:45 PM 08/11/2023 5:52 PM Date Activated Date Inactivated Comments 10/16/2024 12:11 AM 10/24/2024 7:48 PM Date Activated Date Inactivated Comments 04/02/2025 7:34 PM 04/05/2025 5:16 PM Date Activated Date Inactivated Comments 04/02/2025 6:09 PM 04/02/2025 7:34 PM Date Activated Date Inactivated Comments 02/11/2025 9:52 PM 02/21/2025 8:01 PM Date Activated Date Inactivated Comments 10/16/2024 12:11 AM 10/24/2024 7:48 PM Date Activated Date Inactivated Comments 07/02/2024 9:56 PM 07/05/2024 4:44 PM Date Activated Date Inactivated Comments 04/02/2025 7:34 PM 04/05/2025 5:16 PM Date Activated Date Inactivated Comments 04/02/2025 6:09 PM 04/02/2025 7:34 PM Date Activated Date Inactivated Comments 02/11/2025 9:52 PM 02/21/2025 8:01 PM Date Activated Date Inactivated Comments 10/16/2024 12:11 AM 10/24/2024 7:48 PM Date Activated Date Inactivated Comments 07/02/2024 9:56 PM 07/05/2024 4:44 PM Date Activated Date Inactivated Comments 05/12/2025 5:16 AM 05/16/2025 5:16 PM Date Activated Date Inactivated Comments 04/02/2025 7:34 PM 04/05/2025 5:16 PM Date Activated Date Inactivated Comments 04/02/2025 6:09 PM 04/02/2025 7:34 PM Date Activated Date Inactivated Comments 02/11/2025 9:52 PM 02/21/2025 8:01 PM Date Activated Date Inactivated Comments 10/16/2024 12:11 AM 10/24/2024 7:48 PM Date Activated Date Inactivated Comments 05/12/2025 5:16 AM 05/16/2025 5:16 PM Date Activated Date Inactivated Comments 04/02/2025 7:34 PM 04/05/2025 5:16 PM Date Activated Date Inactivated Comments 04/02/2025 6:09 PM 04/02/2025 7:34 PM Date Activated Date Inactivated Comments 02/11/2025 9:52 PM 02/21/2025 8:01 PM Date Activated Date Inactivated Comments 10/16/2024 12:11 AM 10/24/2024 7:48 PM Instructions * Patient Instructions* Palmer Givens PA - 11/06/2018 11:15 AM EDT 1. Continue inhalers. 2. Get labs done. 3. Follow up based on lab results. documented in this encounter* Patient Instructions* Domi Snell RN - 01/04/2020 2:41 PM EDT ..How to contact your Care Team: Provider: Jhonny Medel MD Nurse: Domi Snell RN In case of an emergency please call [phone]. REFILLS: When in need for refills please call your care team or the office at [phone]. Please include medication name, pharmacy name, and specify 30-day or 90-day supply. Please check with your pharmacy within 24 hours of request for your refill. You must follow up as directed to continue current refills. Thank you documented in this encounter* Patient Instructions* Palmer Givens PA - 10/30/2019 2:30 PM EDT 1. Increase lisinopril to 40 mg daily. 2. Start lasix 20 mg daily. 3. Get CXR and echocardiogram. 4. See cardiology on November 05. 5. Follow up based on results, symptoms, and apt with cardiology. documented in this encounter* Patient Instructions* Palmer Givens PA - 07/14/2020 11:15 AM EST 1. I will request hospital records for review. 2. Referral to cardiology and hematology. 3. Get labs done. 4. Follow up in 1 week. documented in this encounter* Patient Instructions* Palmer Givens PA - 09/03/2020 2:00 PM EST 1. Continue medications as directed. 2. Call cardiology and hematology for appointments. 3. Follow up in office after specialist evaluations or if symptoms develop. documented in this encounter Discharge Instructions * Attachments The following attachments cannot be sent through Care Everywhere. * COPD: General Info ([place]i) documented in this encounter* Attachments The following attachments cannot be sent through Care Everywhere. * COPD: Asthma ([place]i) documented in this encounter* Discharge Instr - Other Orders* Elodia Sparrow RN - 01/08/2020 5:45 PM EDT DO NOT TAKE SUBUTEX FOR 2 WEEKS. * Additional Instructions* Elodia Sparrow RN - 01/08/2020 Total Knee Replacement: What to Expect at Home Your Recovery When you leave the hospital, you should be able to move around with a walker or crutches. But you will need someone to help you at home for the next few weeks or until you have more energy and can move around better. If you need more extensive rehab, you may go to a specialized rehab center for more treatment. You will go home with a bandage and stitches, tammy, tissue glue, or tape strips. Change the bandage as your doctor tells you to. If you have stitches or tammy, your doctor will remove them 10 to21 days after your surgery. Glue or tape strips will fall off on their own over time. You may stillhave some mild pain, and the area may be swollen for 3 to 6 months after surgery. Your knee will continue to improve for 6 to 12 months. You will probably use a walker for 1 to 3 weeks and then use crutches. When you are ready, you can use a cane. You will probably be able to walkon your own in 4 to 8 weeks. You will need to do months of physical rehabilitation (rehab) after a knee replacement. Rehab will help you strengthen the muscles of the knee and help you regain movement. After you recover, your artificial knee will allow you to do normal daily activities with less pain or no pain at all. You maybe able to hike, dance, ride a bike, and play golf. Talk to your doctor about whether you can do more strenuous activities. Always tell your caregivers that you have an artificial knee. How long it will take to walk on your own, return to normal activities, and go back to work dependson your health and how well your rehabilitation (rehab) program goes. The better you do with your rehab exercises, the quicker you will get your strength and movement back. This care sheet gives you a general idea about how long it will take for you to recover. But each person recovers at a different pace. Follow the steps below to get better as quickly as possible. How can you care for yourself at home? Activity Rest when you feel tired. You may take a nap, but do not stay in bed all day. When you sit, use a chair with arms. You can use the arms to help you stand up. Work with your physical therapist to find the best way to exercise. What you can do as your knee heals will depend on whether your new knee is cemented or uncemented. You may not be able to do certain things for a while if your new knee is uncemented. After your knee has healed enough, you can do more strenuous activities with caution. ? You can golf, but use a golf cart, and do not wear shoes with spikes. ? You can bike on a flat road or on a stationary bike. Avoid biking up hills. ? Your doctor may suggest that you stay away from activities that put stress on your knee. These include tennis or badminton, squash or racquetball, contact sports like football, jumping (such as in basketball), jogging, or running. ? Avoid activities where you might fall. These include horseback riding, skiing, and mountain biking. Do not sit for more than 1 hour at a time. Get up and walk around for a while before you sit again.If you must sit for a long time, prop up your leg with a chair or footstool. This will help you avoid swelling. Ask your doctor when you can drive again. It may take up to 8 weeks after knee replacement surgery before it is safe for you to drive. When you get into a car, sit on the edge of the seat. Then pull in your legs, and turn to face the front. You should be able to do many everyday activities 3 to 6 weeks after your surgery. You will probably need to take 4 to 16 weeks off from work. When you can go back to work depends on the type of workyou do and how you feel. Ask your doctor when it is okay for you to have sex. Do not lift anything heavier than 10 pounds and do not lift weights for 12 weeks. Diet By the time you leave the hospital, you should be eating your normal diet. If your stomach is upset, try bland, low-fat foods like plain rice, broiled chicken, toast, and yogurt. Your doctor may suggest that you take iron and vitamin supplements. Drink plenty of fluids (unless your doctor tells you not to). Eat healthy foods, and watch your portion sizes. Try to stay at your ideal weight. Too much weight puts more stress on your new knee. You may notice that your bowel movements are not regular right after your surgery. This is common. Try to avoid constipation and straining with bowel movements. You may want to take a fiber supplement every day. If you have not had a bowel movement after a couple of days, ask your doctor about taking a mild laxative. Medicines Your doctor will tell you if and when you can restart your medicines. He or she will also give you instructions about taking any new medicines. If you take aspirin or some other blood thinner, ask your doctor if and when to start taking it again. Make sure that you understand exactly what your doctor wants you to do. Your doctor may give you a blood-thinning medicine to prevent blood clots. If you take a blood thinner, be sure you get instructions about how to take your medicine safely. Blood thinners can cause serious bleeding problems. This medicine could be in pill form or as a shot (injection). If a shot isnecessary, your doctor will tell you how to do this. Be safe with medicines. Take pain medicines exactly as directed. ? If the doctor gave you a prescription medicine for pain, take it as prescribed. ? If you are not taking a prescription pain medicine, ask your doctor if you can take an [id number] medicine. ? Plan to take your pain medicine 30 minutes before exercises. It is easier to prevent pain before it starts than to stop it once it has started. If you think your pain medicine is making you sick to your stomach: ? Take your medicine after meals (unless your doctor has told you not to). ? Ask your doctor for a different pain medicine. If your doctor prescribed antibiotics, take them as directed. Do not stop taking them just because you feel better. You need to take the full course of antibiotics. Incision care If your doctor told you how to care for your cut (incision), follow your doctor's instructions. Youwill have a dressing over the cut. A dressing helps the incision heal and protects it. Your doctor will tell you how to take care of this. If you did not get instructions, follow this general advice: ? If you have strips of tape on the cut the doctor made, leave the tape on for a week or until it falls off. ? If you have stitches or tammy, your doctor will tell you when to come back to have them removed. ? If you have skin adhesive on the cut, leave it on until it falls off. Skin adhesive is also called glue or liquid stitches. ? Change the bandage every day. ? Wash the area daily with warm water, and pat it dry. Don't use hydrogen peroxide or alcohol. Theycan slow healing. ? You may cover the area with a gauze bandage if it oozes fluid or rubs against clothing. ? You may shower 24 to 48 hours after surgery. Pat the incision dry. Don't swim or take a bath for the first 2 weeks, or until your doctor tells you it is okay. Exercise Your rehab program will give you a number of exercises to do to help you get back your knee's rangeof motion and strength. Always do them as your therapist tells you. Ice and elevation For pain and swelling, put ice or a cold pack on the area for 10 to 20 minutes at a time. Put a thin cloth between the ice and your skin. Other instructions Continue to wear your support stockings as your doctor says. These help to prevent blood clots. Thelength of time that you will have to wear them depends on your activity level and the amount of swelling. You have metal pieces in your knee. These may set off some airport metal detectors. Carry a medicalalert card that says you have an artificial joint, just in case. Follow-up care is a armijo part of your treatment and safety. Be sure to make and go to all appointments, and call your doctor if you are having problems. It's also a good idea to know your test resultsand keep a list of the medicines you take. When should you call for help? Call 911 anytime you think you may need emergency care. For example, call if: You passed out (lost consciousness). You have severe trouble breathing. You have sudden chest pain and shortness of breath, or you cough up blood. Call your doctor now or seek immediate medical care if: You have signs of infection, such as: ? Increased pain, swelling, warmth, or redness. ? Red streaks leading from the incision. ? Pus draining from the incision. ? A fever. You have signs of a blood clot, such as: ? Pain in your calf, back of the knee, thigh, or groin. ? Redness and swelling in your leg or groin. Your incision comes open and begins to bleed, or the bleeding increases. You have pain that does not get better after you take pain medicine. Watch closely for changes in your health, and be sure to contact your doctor if: You do not have a bowel movement after taking a laxative. Where can you learn more? Log into your personal health record on [email or web address] and enter T054 in the "Education" box to learn more about "Total Knee Replacement: What to Expect at Home." Current as of: February 14, 2019 Content Version: 12.3 5485-7990 [employer]. Care instructions adapted under license by your healthcare professional. If you have questions about a medical condition or this instruction, always ask your healthcare professional. [employer] disclaims any warranty or liability for your use of this information. documented in this encounter* Attachments The following attachments cannot be sent through Care Everywhere. * Asthma: Adult ([place]i) * COVID-19 SELF ISOLATION DISCHARGE INSTRUCTIONS * Coronavirus Disease (COVID-19): General Info ([place]i) documented in this encounter* Instructions* Christopher Ng MD - 11/01/2020 Is continue your COPD patient is at home according to instructions given by your doctor If having persistent shortness of breath or chest pain or ill feeling return to ER documented in this encounter Reason for Referral Status Reason Specialty Diagnoses / Procedures Referre d By Contact Referred To Contact Closed Radiology Diagnoses Primary osteoarthritis of right knee Procedures CT Knee Right Without Contrast Sofía Dukes MD [address] [id number] Status Reason Specialty Diagnoses / Procedures Referred By Contact Referred To Contact New Request Diagnoses Essential hypertension SOB (shortness of breath) on exertion Leg edema Procedures ECHOCARDIOGRAM SC ECHO HEART XTHORACIC,COMPLETE W DOPPLER Palmer Givens PA [address] [place], [place] [phone] Status Reason Specialty Diagnoses / Procedures Referred By Contact Referred To Contact Authorized Specialty Services Required/[facility] Diagnoses S/P total knee arthroplasty, right Sofía Dukes MD [address] [id number] Status Reason Specialty Diagnoses / Procedures Referred By Contact Referred To Contact New Request Cardiovascular Medicine Diagnoses Atrial fibrillation, unspecified type Essential hypertension Elevated troponin Elevated brain natriuretic peptide (BNP) level Palmer Givens PA [address] [place] [phone] Scheduling Instructions . Status Reason Specialty Diagnoses / Procedures Referred By Contact Referred To Contact New Request Hematology Diagnoses Anemia, unspecified type Thrombocytopenia Palmer Givens PA [address] [place] [phone] Status Reason Specialty Diagnoses / Procedures Referred By Contact Referred To Contact Authorized Orthopedic Surgery / Sports Medicine Diagnoses Tricompartment osteoarthritis of right knee Lena Hill, ENVIRONMENTAL EMERGENCIES PLANNER [address] [facility]3] [address] [place] [address] Sofía Dukes MD [address] [id number] Status Reason Specialty Diagnoses / Procedures Referred By Contact Referred To Contact Authorized Physical Therapy / Rehabilitation Diagnoses Tricompartment osteoarthritis of right knee Lena Hill, ENVIRONMENTAL EMERGENCIES PLANNER [address] [facility]3] [address] [place] [address] [facility] [place] [address] [place] [address] Specialty Diagnoses / Procedures Referred By Contac t Referred To Contact Diagnoses Cirrhosis of liver without ascites, unspecified hepatic cirrhosis type Chronic hepatitis C without hepatic coma Procedures DIAGNOSTIC UPPER ENDOSCOPY SC ESOPHAGOGASTRODUODENOSCOPY TRANSORAL DIAGNOSTIC Antony Suarez Jr., DO [address] [place] [address] Referral ID Status Reason Start Date Expiration Date V isits Requested Visits Authorized [id number] New Request 08/26/2022 09/20/2023 1 1 Referral ID Status Reason Start Date Expiration Date Visits Re quested Visits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 tobacco: Current User Types: Chew Substance and Sexual Activity Alcohol use: No Drug use: No Sexual activity: Not on file Lifestyle Physical activity: Days per week: Not on file Minutes per session: Not on file Stress: Not on file Relationships Social connections: Talks on phone: Not on file Gets together: Not on file Attends lutheran service: Not on file Active member of club or organization: Not on file Attends meetings of clubs or organizations: Not on file Relationship status: Not on file Other Topics Concern Not on file Social History Narrative Not on file Previous Medications Medication Sig albuterol 90 mcg/actuation inhaler Inhale 2 puffs every 6 (six) hours as needed for wheezing. allopurinol (ZYLOPRIM) 300 MG tablet Take 300 mg by mouth daily. aspirin-calcium carbonate 81 mg-300 mg calcium(777 mg) Tab Take 81 mg by mouth . buprenorphine HCl (SUBUTEX) [address] 8 mg under the tongue 2 (two) times a day. gabapentin (NEURONTIN) 800 MG tablet Take 800 mg by mouth 3 (three) times a day. ibuprofen (ADVIL,MOTRIN) 600 MG tablet 1 PO q 8 hours PRN pain. Discontinue if GI upset/distress and notify provider.. indomethacin (INDOCIN) 25 MG capsule Take 25 mg by mouth 2 (two) times a day. lisinopril (PRINIVIL,ZESTRIL) 20 MG tablet Take 20 mg by mouth daily. tiotropium-olodaterol (STIOLTO) 2.5-2.5 mcg/actuation Mist respimat inhaler Inhale 2.5 mcg daily. No Known Allergies Review of Systems Constitutional: Negative for diaphoresis, fatigue, fever and unexpected weight change. HENT: Negative for drooling, facial swelling, trouble swallowing and voice change. Eyes: Negative for pain, discharge, redness and visual disturbance. Respiratory: Positive for cough, chest tightness, shortness of breath and wheezing. Negative for choking and stridor. Cardiovascular: Negative for chest pain, palpitations and leg swelling. Gastrointestinal: Negative for abdominal pain, blood in stool, constipation, nausea and vomiting. Endocrine: Negative. Genitourinary: Negative for decreased urine volume, difficulty urinating, frequency, hematuria and urgency. Musculoskeletal: Negative for joint swelling, neck pain and neck stiffness. Skin: Negative for pallor, rash and wound. Allergic/Immunologic: Negative. Neurological: Negative for tremors, seizures, syncope, facial asymmetry, speech difficulty, weakness, numbness and headaches. Hematological: Negative. Psychiatric/Behavioral: Negative for suicidal ideas. All other systems reviewed and are negative. Patient Vitals for the past 24 hrs: BP Temp Temp src Pulse Resp SpO2 04/03/19 0810 95 % 04/03/19 0800 (!) 146/58 98.5 F (36.9 C) Oral 69 (!) 24 91 % Physical Exam Constitutional: He is oriented to person, place, and time. He appears well- developed and well-nourished. Non-toxic appearance. He does not appear ill. He appears distressed. Awake alert mild to moderate respiratory distress HENT: Head: Normocephalic and atraumatic. Mouth/Throat: Oropharynx is clear and moist. No oropharyngeal exudate. Eyes: Conjunctivae and EOM are normal. Pupils are equal, round, and reactive to light. No scleral icterus. Neck: Normal range of motion. Neck supple. Cardiovascular: Normal rate and regular rhythm. No murmur heard. Pulmonary/Chest: Accessory muscle usage present. No respiratory distress. He has wheezes. Abdominal: Soft. Bowel sounds are normal. He exhibits no distension and no mass. There is no tenderness. There is no guarding. Musculoskeletal: Normal range of motion. Right lower leg: He exhibits no tenderness, no swelling and no edema. Left lower leg: He exhibits no tenderness, no swelling and no edema. Neurological: He is alert and oriented to person, place, and time. Skin: Skin is warm and dry. No rash noted. Psychiatric: His behavior is normal. His mood appears anxious. Nursing note and vitals reviewed. Laboratory & Radiographic Imaging (if done): Results for orders placed or performed during the hospital encounter of 04/03/19 NT Pro BNP Result Value Ref Range NT-Pro BNP 83 0 - 300 pg/mL Chem 7 Result Value Ref Range Sodium 138 135 - 145 mmol/L Potassium 4.1 3.5 - 5.1 mmol/L Chloride 104 98 - 108 mmol/L Bicarbonate 28 21 - 32 mmol/L Creatinine 0.82 0.50 - 1.30 mg/dL Glucose 100 (H) 65 - 99 mg/dL BUN 15 8 - 25 mg/dL eGFR 102 >=60 mL/min/1.73 m2 BUN/Creatinine Ratio 18.3 10.0 - 20.0 Anion Gap 10 10 - 20 mmol/L Troponin Result Value Ref Range Troponin I <15 <=45 ng/L Troponin I Interpretation Normal CBC Auto Differential Result Value Ref Range WBC 3.19 (L) 4.50 - 11.00 K/mcL RBC 5.37 4.50 - 5.90 M/mcL Hemoglobin 11.9 (L) 13.5 - 17.5 g/dL Hematocrit 38.2 (L) 41.0 - 53.0 % MCV 71.1 (L) 80.0 - 100.0 fL MCH 22.2 (L) 26.0 - 34.0 pg MCHC 31.2 31.0 - 37.0 g/dL Platelets 128 (L) 150 - 400 K/mcL RDW - CV 16.0 (H) 11.6 - 14.8 % MPV 11.2 9.0 - 15.5 fL Neutrophils 55.2 % Lymphocytes 33.2 % Monocytes 9.1 % Eosinophils 1.9 % Basophils 0.3 % IG Percent 0.30 % Neutrophils Abs 1.76 1.70 - 7.00 K/mcL Lymphocytes Abs 1.06 0.90 - 4.00 K/mcL Monocytes Abs 0.29 (L) 0.30 - 0.90 K/mcL Eosinophils Abs 0.06 0.00 - 0.50 K/mcL Basophils Abs 0.01 0.00 - 0.30 K/mcL IG Absolute 0.01 0.00 - 0.30 K/mcL Nucleated RBC 0.0 % Nucleated RBC Abs 0.00 0.00 - 0.00 K/mcL CBC and Diff Morphology Result Value Ref Range Anisocytosis 2+ Microcytosis 2+ Hypochromia 2+ [place] Cells 1+ XR Chest 1 View Final Result No acute cardiopulmonary disease. Workstation ID: [id number] ECG 12 Lead Date/Time: 04/03/2019 10:12 AM Performed by: Kinsey Ignacio MD Authorized by: Kinsey Ignacio MD Comparison: compared with previous ECG Rhythm: sinus rhythm BPM: 56 Conduction: conduction normal ST Segments: ST segments normal T Waves: T waves normal normal SC interval normal QRS interval normal QT interval Clinical impression: normal ECG [facility] Patient is a 53-year-old male with history of COPD presents to the ED with shortness of breath increasing work of breathing audible wheezing intermittent for few days worsening today. In the ED patient awake alert answering question appropriately initial vitals were stable he is afebrile however due to severity of symptoms patient was given a nebulizing treatment IV steroid symptom medic improvement EKG does notes sinus bradycardia rate of 56 beats per minutes SC interval of 154 ms QRS of 86 ms QTC is of [address] wave abnormality work-up has been initiated including labs chest x-ray for further evaluation we will continue to monitor patient review labs images and treat appropriately. Review labs imaging all within normal limits reevaluated patient asymptomatic currently resting peacefully in bed. Patient will be discharge with prescription for prednisone and inhaler recommend hydration rest follow-up with PCP and return to the ED if any worsening symptom and he expressed understanding. . Clinical Impression: SNOMED CT(R) 1. Acute exacerbation of chronic obstructive pulmonary disease (COPD) (HCC) ACUTE EXACERBATION OF CHRONIC OBSTRUCTIVE AIRWAYS DISEASE ED Disposition ED Disposition Condition Comment Discharge Stable Carmen Gilman discharged to home/self care in stable condition. Follow-up Information 1. Mari Lee MD. Specialty: Family Medicine Why: If symptoms worsen [address] [id number] Contact information for after-discharge care Follow-up information has not been specified. New Prescriptions predniSONE (DELTASONE) 20 MG tablet Take 1 (one) tablet (20 mg total) by mouth daily for 10 days . albuterol (PROVENTIL) 2.5 mg /3 mL (0.083 %) nebulizer solution Take 3 mL (2.5 mg total) by nebulization every 6 (six) hours as needed for wheezing . Kinsey Ignacio MD 04/03/19 0946 Kinsey Ignacio MD 04/03/19 1014 Pt refusing iv meds and blood work until he received a breathing treatment. Dr ignacio goes bedside and explains the importance of the iv and labwork pt agrees to allow staff to start iv and give meds while waiting for respiratory Pt presents for eval of sob pt has been sob for a few days, pt denies other symptom, pt agitated and refusing blood work until he gets a breathing treatment Bed: 17 Expected date: Expected time: Means of arrival: Comments: NEXT PATIENT documented in this encounter SEE THE TWO CHARTS THAT WERE TO BE MERGED WHEN PT IS D/C HE WAS PUT IN ANOTHER ANOTHER CARMEN GILMAN IN TRIAGE PT LEFT AMA AFTER YELLING ON SIDE OF BED AND WHEN ADVISED PT HE HAD CALL LIGHT RIGHT BESIDE HIM HE JUST LOOKED AT THIS RN HE STATES "IM LEAVING" PT ADVISED THAT DR GALVIN TO BE ADVISED AND DR GALVIN AWARE OF THIS AND MINI CURRAN AND VIRGINIE Santiago CHARGE ASSISTING WITH GETTING IV AND LABS OUT PT REFUSING TO WAIT FOR ANYTHING AND PT NOW STANDING IN ROOM ON RIGHT KNEE BUT STATES HIS PAIN IS STILL "HIGH" VIRGINIE MENDOZA CHARGE GOT PT WC TO BE WHEELED TO WAITING AREA documented in this encounter 1400mL of clear, yellow urine drained from Tavera cath. 1mg lopressor given due to patient's blood pressure. Verbal order from Dr. Ignacio to hold remaining 4mg Versed 5mg given iv per Dr Ignacio verbal order. 1mg wasted with BINA Shahid Propofol increased to 50mcg/kg/min RT at bedside for ABG Propofol increased to 45 mcg/kg/min Called RT for blood gas per VO from Dr Ignacio and called security to gather patient's valuables. Associated Order(s): Intubation ED PROVIDER NOTE [facility] NAME: Carmen Gilman AGE: 54 y.o. : 1965 VISIT DATE: 07/07/2020 CSN: [id number] PCP: No primary care provider on file. Chief Complaint Patient presents with Respiratory Distress HPI Patient is a 54 years old male with multiple medical problems including history of COPD, CHF, brought to the ED by EMS for respiratory distress. EMS report patient called at home With complaint of difficulty breathing, EMS reports upon arrival at the scene he was hypoxic 76% he was given Solu-Medrol 125 mg IV and placed on nonrebreather upon arrival to the ED he was hypoxic, noted to be in severe respiratory distress, tachypneic, tachycardic, Retractions, he was immediately given a DuoNeb with no improvement in his symptoms, concerning for airway compromise patient was immediately intubated using RSI with symptomatic improvements and currently on the vent , sedated with propofol. There is diffuse bilateral +3 pitting edema noted physical exam with Wheezing noted. No further information is obtained as no family members is at bedside patient is currently intubated on the vent. Past Medical History: Diagnosis Date COPD (chronic obstructive pulmonary disease) (HCC) Hypertension Past Surgical History: Procedure Laterality Date ORTHOPEDIC SURGERY Right knee History reviewed. No pertinent family history. Social History Socioeconomic History Marital status: Not on file Spouse name: Not on file Number of children: Not on file Years of education: Not on file Highest education level: Not on file Occupational History Not on file Social Needs Financial resource strain: Not on file Food insecurity Worry: Not on file Inability: Not on file Transportation needs Medical: Not on file Non-medical: Not on file Tobacco Use Smoking status: Never Smoker Smokeless tobacco: Never Used Substance and Sexual Activity Alcohol use: Never Frequency: Never Drug use: Never Sexual activity: Not on file Lifestyle Physical activity Days per week: Not on file Minutes per session: Not on file Stress: Not on file Relationships Social connections Talks on phone: Not on file Gets together: Not on file Attends lutheran service: Not on file Active member of club or organization: Not on file Attends meetings of clubs or organizations: Not on file Relationship status: Not on file Other Topics Concern Not on file Social History Narrative Not on file No current outpatient medications on file prior to encounter. Not on File Review of Systems Unable to perform ROS: Intubated Patient Vitals for the past 24 hrs: BP Temp Pulse Resp SpO2 Weight 07/07/20 2332 96.8 F (36 C) 07/07/20 2330 (!) 195/100 (!) 151 100 % 07/07/20 2315 (!) 176/93 (!) 163 100 % 07/07/20 2300 (!) 180/105 (!) 162 100 % 07/07/20 2236 118 kg (260 lb 2.3 oz) 07/07/20 2227 122/82 (!) 159 98 % 07/07/20 2219 (!) 156/97 (!) 175 (!) 40 98 % Physical Exam Vitals signs and nursing note reviewed. Constitutional: General: He is in acute distress. Appearance: He is well-developed. He is obese. He is ill-appearing, toxic- appearing and diaphoretic. Comments: Intubated on the vent HENT: Head: Normocephalic and atraumatic. Cardiovascular: Rate and Rhythm: Regular rhythm. Tachycardia present. Heart sounds: No murmur. Pulmonary: Effort: Pulmonary effort is normal. Breath sounds: No stridor. Wheezing and rhonchi present. Abdominal: General: Abdomen is flat. Bowel sounds are normal. Palpations: Abdomen is soft. Musculoskeletal: Right lower leg: He exhibits no swelling. Edema present. Left lower leg: He exhibits no swelling. Edema present. Comments: +3 bilateral lower extremity pitting edema Neurological: Comments: Intubated on a vent. Laboratory & Radiographic Imaging (if done): Results for orders placed or performed during the hospital encounter of 07/07/20 COVID-19, Molecular Specimen: Nasopharyngeal; Swab Result Value Ref Range SARS-CoV-2 Not Detected Not Detected Chem 7 Result Value Ref Range Sodium 136 135 - 145 mmol/L Potassium 4.2 3.5 - 5.1 mmol/L Chloride 104 98 - 111 mmol/L Bicarbonate 21 21 - 32 mmol/L Creatinine 1.05 1.00 - 1.70 mg/dL Glucose 188 (H) 65 - 99 mg/dL BUN 16 8 - 25 mg/dL eGFR 41 (L) >=60 mL/min/1.73 m2 eGFR 47 (L) >=60 mL/min/1.73 m2 BUN/Creatinine Ratio 15.2 10.0 - 20.0 Anion Gap 15 10 - 20 mmol/L NT Pro BNP Result Value Ref Range NT-Pro BNP 266 0 - 300 pg/mL Troponin x 2 (Now and Repeat in 3 hours) Result Value Ref Range Troponin I <15 <=45 ng/L Troponin I Interpretation Normal Urine Drug Screen Result Value Ref Range Amphetamine Screen, Urine None Detected None Detected Barbiturate Screen, Urine None Detected None Detected Benzodiazepine Screen, Urine None Detected None Detected Cannabinoid Screen, Urine Presumptive Positive (A) None Detected Cocaine, Screen Urine None Detected None Detected Methadone Screen, Urine None Detected None Detected Opiate Screen, Urine None Detected None Detected Oxycodone Screen, Urine None Detected None Detected POC Arterial Blood Gas Panel-Pulm Result Value Ref Range pH, Arterial 7.15 (CL) 7.35 - 7.45 pCO2, Arterial 77.0 (H) 35.0 - 45.0 mm Hg pO2, Arterial 531 (H) 80 - 100 mm Hg Base Excess, Arterial -3.5 (L) -2.0 - 2.0 HCO3, Arterial 26.9 (H) 22.0 - 26.0 mmol/L Hemoglobin, Blood Gas 12.7 (L) 13.5 - 18.0 g/dL Hematocrit, Calculated 38.8 (L) 41.0 - 53.0 % FIO2 [address] ignacio Specimen Source Brachial, left IMV 0 TIDAL VOLUME 500 PEEP 5 RESP RATE 16 [id number] 66.6 mm Hg POC Arterial Blood Gas Panel-Pulm Result Value Ref Range pH, Arterial 7.15 (CL) 7.35 - 7.45 pCO2, Arterial 77.0 (H) 35.0 - 45.0 mm Hg pO2, Arterial 531 (H) 80 - 100 mm Hg Base Excess, Arterial -3.5 (L) -2.0 - 2.0 HCO3, Arterial 26.9 (H) 22.0 - 26.0 mmol/L Hemoglobin, Blood Gas 12.7 (L) 13.5 - 18.0 g/dL Hematocrit, Calculated 38.8 (L) 41.0 - 53.0 % FIO2 [address] ignacio Specimen Source Brachial, left IMV 0 TIDAL VOLUME 500 PEEP 5 RESP RATE 16 [id number] 66.6 mm Hg CBC Auto Differential Result Value Ref Range WBC 11.69 (H) 4.50 - 11.00 K/mcL RBC 5.43 4.50 - 5.90 M/mcL Hemoglobin 12.0 (L) 13.5 - 17.5 g/dL Hematocrit 39.7 (L) 41.0 - 53.0 % MCV 73.1 (L) 80.0 - 100.0 fL MCH 22.1 (L) 26.0 - 34.0 pg MCHC 30.2 (L) 31.0 - 37.0 g/dL Platelets 237 150 - 400 K/mcL RDW - CV 17.2 (H) 11.6 - 14.8 % MPV 10.0 9.4 - 12.4 fL Neutrophils 51.5 % Lymphocytes 36.1 % Monocytes 7.5 % Eosinophils 3.3 % Basophils 0.4 % IG Percent 1.20 % Neutrophils Abs 6.01 1.70 - 7.00 K/mcL Lymphocytes Abs 4.22 (H) 0.90 - 4.00 K/mcL Monocytes Abs 0.88 0.30 - 0.90 K/mcL Eosinophils Abs 0.39 0.00 - 0.50 K/mcL Basophils Abs 0.05 0.00 - 0.30 K/mcL IG Absolute 0.14 0.00 - 0.30 K/mcL Nucleated RBC 0.3 % Nucleated RBC Abs 0.03 (H) 0.00 - 0.00 K/mcL XR Chest 1 View Final Result 1. Nonacute portable chest. 2. Tip of the ET tube is 5.5 cm above the virgie. Workstation ID: [id number] Intubation Date/Time: 07/07/2020 11:35 PM Performed by: Kinsey Ignacio MD Authorized by: Kinsey Ignacio MD Verbal consent: not obtained Written consent: not obtained Reason consent not obtained: emergency Relevant documents: Relevent documents present and verified. Medical history, medications, allergies and physical assessment reviewed/completed Test results: test results available and properly labeled Site: site marked by physician or proceduralist who is privileged and credentialed to perform procedure Relevant imaging studies available and labeled: Yes Required items: required blood products, implants, devices, and special equipment available Patient identity confirmed: verified patient name and , hospital-assigned identification number and anonymous protocol, patient vented/unresponsive Time out: Immediately prior to procedure a "time out" was called to verify the correct patient, procedure, equipment, academic support assistant and site/side marked as required. Timeout performed at: 07/07/2020 11:35 PM Physician or proceduralist has discussed critical or nonroutine steps, procedure duration and anticipated blood loss: Yes All team members agree to proceed: Yes Indications: airway protection, altered mental status, hypercapnia, hypoxemia and respiratory distress Intubation method: video-assisted Patient status: paralyzed (RSI) Preoxygenation: BVM Patient sedated: yes ASA Classification: class 4 - patient with severe systemic disease that is a constant threat to life Mallampati Classification: III - soft palate, base of uvula visible ASA Status unchanged immediately prior to sedation administration and Heart, lungs and airway assessment completed prior to sedation Sedatives: propofol Sedation start date/time: 07/07/2020 11:36 PM Sedation end date/time: 07/07/2020 11:36 PM Laryngoscope size: Mac 3 and Glidoscope 1 Tube size: 8.0 mm Tube type: cuffed Number of attempts: 1 Ventilation between attempts: BVM Cricoid pressure: no Cords visualized: yes Post-procedure assessment: chest rise, ETCO2 monitor and CO2 detector Breath sounds: equal Cuff inflated: yes ETT to lip: 23 cm ETT to teeth: 23 cm Tube secured with: ETT alfonso, adhesive tape and umbilical tape Chest x-ray interpreted by me and other physician. Chest x-ray findings: endotracheal tube in appropriate position Patient tolerance: patient tolerated the procedure well with no immediate complications MDM Patient is a 54 years old male with history COPD CHF chronic respiratory failure brought to the ED by EMS for respiratory distress in the ED patient was noted to be severely hypoxic moderate to severe respiratory distress tachypneic tachycardic, DuoNeb was initially given no improvement in his symptoms concerning for airway compromise patient was immediately intubated using RSI with symptomatic improvement currently on the vent sedated with propofol further work-up has been initiated concerning for ACS versus CHF exacerbation versus pneumonia versus viral cause of symptoms. EKG does notes A. fib with rapid ventricular response rate of 150 bpm QRS duration 88 ms QTc [address]-T wave abnormalities. Due to history of CHF pitting edema concerning for CHF exacerbation patient was given 40 IV Lasix blood culture lactic acid concerning for infection Levaquin will be started chest x- ray showed no infiltrate no pulmonary edema. The patient pockets was marijuana was found and family at bedside states patient with history of polysubstance abuse. concerning for possible drug overdose as well. will Continue to monitor patient and treat appropriately. . Clinical Impression: No diagnosis found. ED Disposition None Follow-up Information Follow-up information has not been specified. Contact information for after-discharge care Follow-up information has not been specified. Kinsey Igncaio MD 07/07/20 2311 Kinsey Ignacio MD 07/07/20 2337 Kinsey Ignacio MD 07/08/20 0004 Bed: 06 Expected date: Expected time: Means of arrival: Comments: MFD R1 documented in this encounter PT AGREEABLE TO DR JOSEPH TO DO A COVID SWAB, ATTEMPTED TO DO COVID TESTING WITH DR JOSEPH ASSISTING AND PT FLAILED AND THRASHED AROUND, UNABLE TO COMPLETE COVID TESTING, PT STATED "I DID THE BEST I COULD", COVID TEST NOT ADEQUATE SO UNABLE TO SEND SPECIMEN Associated Order(s): EKG 12-lead [facility] PCP - Mari Lee MD Please excuse grammar and misspelling secondary to Dragon dictation use Chief Complaint Patient presents with Shortness of Breath HPI Chief complaint coughing shortness of breath 55-year-old male presents here stating that he is short of breath. The patient states she should be on oxygen but is not. Patient refusing Covid testing during his last hospitalization and signed out AMA. Patient states he feels short of breath he has had a cough nothing productive no chills or rigors. The patient denies any chest pain. Patient states he did not have his inhaler therefore he became more short of breath. Patient states he tried to go to the pharmacy and has his prescription filled but was unable to. The patient states shortness of breath is worse with walking activity or exertion. The patient denies any nausea or vomiting or abdominal pain. Patient again states that when he used the inhaler does help. The patient denies any ill contacts. MEDICAL DECISION MAKING This is a 53-year-old male with history of COPD asthma essential hypertension A. fib CHF diabetes morbid obesity presents here with shortness of breath increasing throughout the evening. Patient had symptoms of couple of days ago. On arrival in the emerge department the patient was not hypoxic or respiratory distress. He states he did not have his albuterol and the pharmacy was not able to refill this for him. Patient did have wheezing and rhonchi throughout. He is adamant about refusing a Covid swab. Patient states he had a "bad reaction". We did attempt to his nasal swab the patient he became violently agitated jerking and pulling away from the nasal swab immediately therefore this was abandoned. The patient did have improvement with 2 albuterol's given. I reviewed the patient's EMR although he had even higher D- dimer previously chest CT did not reveal any obvious PE. The patient is also on anticoagulation with Xarelto. My suspicion that with chest x-ray concerning for atypical infiltrates leukopenia elevated D-dimer he is suspected of having COVID-19 infection as he is not able to tolerate the confirmation swab testing. Patient will be discharged home with albuterol MDI refill Decadron for the next 5 days along with Pepcid and azithromycin. Patient recommend returning if worsening problems or other concerns. Again apparently he signed out AMA during last hospitalization and would likely not want to be admitted also at this time . Results for orders placed or performed during the hospital encounter of 08/01/20 Comprehensive Metabolic Panel Result Value Ref Range Sodium 138 135 - 145 mmol/L Potassium 4.3 3.5 - 5.1 mmol/L Chloride 106 98 - 108 mmol/L Bicarbonate 29 21 - 32 mmol/L Anion Gap 7 (L) 10 - 20 mmol/L Glucose 98 65 - 99 mg/dL BUN 11 8 - 25 mg/dL Creatinine 0.66 0.50 - 1.30 mg/dL eGFR 110 >=60 mL/min/1.73 m2 BUN/Creatinine Ratio 16.7 10.0 - 20.0 Total Protein 7.9 6.0 - 8.0 g/dL Albumin 3.6 3.2 - 5.2 g/dL Calcium 8.6 8.4 - 10.2 mg/dL Alkaline Phosphatase 72 40 - 150 U/L AST 37 0 - 45 U/L Total Bilirubin 1.3 0.0 - 1.3 mg/dL ALT 39 14 - 65 U/L Troponin Result Value Ref Range Troponin I <15 <=45 ng/L Troponin I Interpretation Normal D-Dimer, Quantitative Result Value Ref Range D-Dimer 3.33 (H) 0.27 - 0.49 mcg/mL FEU POC Venous Blood Gas Panel-Pulm Result Value Ref Range pH, Venous 7.36 7.32 - 7.42 pCO2, [place] 53.4 (H) 41.0 - 51.0 mm Hg pO2, [place] 72 (H) 25 - 40 mm Hg Base Excess, [place] 3.5 (H) -2.0 - 2.0 HCO3, [place] 30.0 (H) 24.0 - 28.0 mmol/L Hemoglobin, Blood Gas 11.8 (L) 13.5 - 18.0 g/dL Hematocrit, Calculated 36.2 (L) 41.0 - 53.0 % O2 Sat, [place] 94.4 (H) 40.0 - 70.0 % FIO2 21 Specimen Source Not specified IMV 0 TIDAL VOLUME 0 RESP RATE 0 CBC Auto Differential Result Value Ref Range WBC 2.91 (L) 4.50 - 11.00 K/mcL RBC 5.12 4.50 - 5.90 M/mcL Hemoglobin 11.4 (L) 13.5 - 17.5 g/dL Hematocrit 37.1 (L) 41.0 - 53.0 % MCV 72.5 (L) 80.0 - 100.0 fL MCH 22.3 (L) 26.0 - 34.0 pg MCHC 30.7 (L) 31.0 - 37.0 g/dL Platelets 111 (L) 150 - 400 K/mcL RDW - CV 17.2 (H) 11.6 - 14.8 % MPV 9.7 9.4 - 12.4 fL Neutrophils 59.9 % Lymphocytes 26.8 % Monocytes 10.3 % Eosinophils 2.4 % Basophils 0.3 % IG Percent 0.30 % Neutrophils Abs 1.74 1.70 - 7.00 K/mcL Lymphocytes Abs 0.78 (L) 0.90 - 4.00 K/mcL Monocytes Abs 0.30 0.30 - 0.90 K/mcL Eosinophils Abs 0.07 0.00 - 0.50 K/mcL Basophils Abs 0.01 0.00 - 0.30 K/mcL IG Absolute 0.01 0.00 - 0.30 K/mcL Nucleated RBC 0.0 % Nucleated RBC Abs 0.00 0.00 - 0.00 K/mcL Radiographic Imaging (if any) During ED Visit All Radiographic Imaging (if any) were read by Radiologist and reviewed and viewed by myself I have also reviewed narcotic score prior to giving any narcotic pain medications XR Chest 1 View Final Result Mild hazy opacity in the bilateral lung bases, left greater than right, may relate to atelectasis or infiltrate, including atypical infection/viral pneumonia. Trace left pleural effusion is suspected. K1 Speed/richard Workstation ID: [id number] Medications Ordered/Given During ED Visit Medications dexamethasone (DECADRON) injection 10 mg (10 mg Intravenous Given 08/01/20901) ipratropium-albuteroL (DUO-NEB) 0.5-2.5 mg/3 ml nebulizer solution 3 mL (3 mL Inhalation Given 08/01/20831) albuterol (PROVENTIL) 2.5 mg /3 mL (0.083 %) nebulizer solution 2.5 mg (2.5 mg Inhalation Given 08/01/20831) EKG 12-lead Date/Time: 08/01/2020 7:45 AM Performed by: Saulo Joseph MD Authorized by: Saulo Joseph MD Interpreted by ED attending physician Comparison: not compared with previous ECG Rhythm: sinus rhythm BPM: 76 Conduction: conduction normal ST Segments: ST segments normal T Waves: T waves normal SC Interval: 150 QRS Interval: 78 QT Interval: 436 Clinical impression: normal ECG Review of Systems Review of Systems Constitutional: Positive for fatigue. Negative for activity change, appetite change and fever. HENT: Negative for congestion and ear discharge. Eyes: Negative for photophobia. Respiratory: Positive for cough and shortness of breath. Negative for choking. Cardiovascular: Negative for palpitations and leg swelling. Gastrointestinal: Negative for abdominal pain and blood in stool. Endocrine: Negative for polyuria. Genitourinary: Negative for difficulty urinating, flank pain and hematuria. Musculoskeletal: Positive for arthralgias. Negative for back pain and gait problem. Skin: Negative for color change. Neurological: Positive for weakness. Negative for dizziness, syncope, light-headedness and numbness. Hematological: Does not bruise/bleed easily. Psychiatric/Behavioral: Negative for agitation. All other systems reviewed and are negative. All systems reviewed negative except as mentioned above. Physical Exam Vital Signs During ED Visit (as charted by nursing) Patient Vitals for the past 24 hrs: BP Temp Temp src Pulse Resp SpO2 Height Weight 08/01/20 0915 66 100 % 08/01/20 0834 97 % 08/01/20 0830 (!) 156/86 73 97 % 08/01/20 0745 (!) 170/95 98.1 F (36.7 C) Oral 76 (!) 24 97 % 6' 120.2 kg (265 lb) 08/01/20 0736 (!) 88 % Physical Exam Vitals signs and nursing note reviewed. Constitutional: General: He is not in acute distress. Appearance: He is obese. He is not diaphoretic. HENT: Head: Normocephalic and atraumatic. Right Ear: External ear normal. Left Ear: External ear normal. Nose: Nose normal. Eyes: General: Right eye: No discharge. Left eye: No discharge. Conjunctiva/sclera: Conjunctivae normal. Pupils: Pupils are equal, round, and reactive to light. Neck: Musculoskeletal: Neck supple. Vascular: No JVD. Trachea: Phonation normal. Cardiovascular: Rate and Rhythm: Normal rate and regular rhythm. Heart sounds: Normal heart sounds, S1 normal and S2 normal. No murmur. No friction rub. No gallop. Pulmonary: Effort: Pulmonary effort is normal. No respiratory distress. Breath sounds: Decreased breath sounds, wheezing and rhonchi present. Chest: Chest wall: No tenderness. Abdominal: General: Bowel sounds are normal. There is no distension. Palpations: Abdomen is soft. Tenderness: There is no abdominal tenderness. There is no guarding or rebound. Negative signs include Canales's sign and McBurney's sign. Hernia: No hernia is present. There is no hernia in the ventral area. Musculoskeletal: Normal range of motion. Lymphadenopathy: Cervical: No cervical adenopathy. Skin: General: Skin is warm and dry. Capillary Refill: Capillary refill takes less than 2 seconds. Neurological: General: No focal deficit present. Mental Status: He is alert and oriented to person, place, and time. Cranial Nerves: Cranial nerves are intact. No cranial nerve deficit. Sensory: Sensation is intact. Past Medical History Past Medical History: Diagnosis Date Anxiety Arrhythmia Arthritis Asthma COPD (chronic obstructive pulmonary disease) (HCC) Diabetes (HCC) Hypertension Opioid dependence (HCC) Past Surgical History Past Surgical History: Procedure Laterality Date APPENDECTOMY ARTHROPLASTY KNEE TOTAL ROBOTIC ASSISTED Right 01/08/2020 Procedure: Right Total Knee Replacement Robotic; Surgeon: Sofía Dukes MD; Location: Main OR; Service: Ortho-Robotics FOOT SURGERY Left MANDIBLE FRACTURE SURGERY ORTHOPEDIC SURGERY Right knee THORACIC DUCT LIGATION 01/15/2017 THORACIC DUCT LIGATION Family History Family History Problem Relation Age of Onset Heart disease Mother Diabetes Mother Social History Social History Socioeconomic History Marital status: Single Spouse name: Not on file Number of children: Not on file Years of education: Not on file Highest education level: Not on file Occupational History Not on file Social Needs Financial resource strain: Not on file Food insecurity Worry: Not on file Inability: Not on file Transportation needs Medical: Not on file Non-medical: Not on file Tobacco Use Smoking status: Former Smoker Types: Cigarettes Quit date: 01/25/2007 Years since quittin.5 Smokeless tobacco: Current User Types: Chew Substance and Sexual Activity Alcohol use: Not Currently Frequency: Never Drug use: Yes Types: Marijuana Sexual activity: Not on file Lifestyle Physical activity Days per week: Not on file Minutes per session: Not on file Stress: Not on file Relationships Social connections Talks on phone: Not on file Gets together: Not on file Attends lutheran service: Not on file Active member of club or organization: Not on file Attends meetings of clubs or organizations: Not on file Relationship status: Not on file Other Topics Concern Not on file Social History Narrative Merged History Encounter Allergies No Known Allergies Medications Patient's Medications New Prescriptions No medications on file Previous Medications ALBUTEROL (PROVENTIL) 2.5 MG /3 ML (0.083 %) NEBULIZER SOLUTION Take 3 mL (2.5 mg total) by nebulization every 6 (six) hours as needed for wheezing . ALBUTEROL (PROVENTIL) 2.5 MG /3 ML (0.083 %) NEBULIZER SOLUTION USE ONE AMPULE (3ML) BY NEBULIZER EVERY 6 HOURS NEEDED ALBUTEROL 90 MCG/ACTUATION INHALER Inhale 2 puffs every 6 (six) hours as needed for wheezing. BEVESPI AEROSPHERE 9-4.8 MCG HFAA Inhale 2 puffs 2 (two) times a day . BUPRENORPHINE HCL (SUBUTEX) 8 MG SL TABLET DISSOLVE ONE TABLET UNDER THE TONGUE TWICE DAILY GABAPENTIN (NEURONTIN) 800 MG TABLET Take 800 mg by mouth 3 (three) times a day. GABAPENTIN (NEURONTIN) 800 MG TABLET Take 800 mg by mouth 3 (three) times a day . LISINOPRIL (PRINIVIL,ZESTRIL) 20 MG TABLET Take 20 mg by mouth daily. PANTOPRAZOLE (PROTONIX) 20 MG TABLET Take 1 (one) tablet (20 mg total) by mouth daily Start: 01/09/20. Modified Medications No medications on file Discontinued Medications No medications on file Saulo Joseph MD 08/01/20 0924 Special isolation precautions are in place with signage outside this patient's room. This RN performs hand hygiene and enters the patient room wearing: ? gloves ? an appropriately fitting (N-95, PAPR, Aura) mask ? face shield ? protective gown to provide nursing care. See nursing documentation for the care provided. JENNIFER RN, GURINDER RN Patient sitting up on side of bed, declines sitting back on cart as he is taking deep breaths/orthopnic. Attempted to collect COVID/FLU x2, patient pulled head back each time despite teaching. Patient denies exposure to COVID, educated that if admission is possible there will be no bed provided and will prolong ER time without swab completed. Made aware that attempts to collect specimen would not be acceptable or adequate to send to lab. Patient questioning why an IV is needed, again educated that in order to care for him appropriately, that would require an IV for blood work evaluation and administration of medications. PT REPORTS LAST NIGHT STARTED FEELING SOB, STATES SHOULD BE ON OXYGEN AT HOME BUT IS NOT, PRESENTED AT 88%, ON 2 LITERS CURRENTLY AND 97%, STATED LEFT AMA LAST HOSPITALIZATION, REFUSING A COVID TEST Special isolation precautions are in place with signage outside this patient's room. This care worker performs hand hygiene and enters the patient room wearing: ? gloves ? an appropriately fitting (N-95, PAPR, Aura) mask ? face shield ? protective gown to provide care. See documentation for the care provided. This psa escorted patient by wheelchair to room 1. documented in this encounter ED PROVIDER NOTE [facility] EM[facility]ENC[facility] NAME: Carmen Gilman AGE: 55 y.o. : 1965 VISIT DATE: 11/01/2020 CSN: [id number] PCP: Mari Lee MD Chief Complaint Patient presents with Shortness of Breath This is a 55-year-old reason for historian with history of COPD, diabetes, hypertension and opioid dependence as well as history of asthma who is coming to emergency room with complaints of shortness of breath which started "couple days ago." He denies cough or fever, chills, runny nose/nasal congestion or sore throat associated with this. Patient denies chest or abdominal pain associated with this. He states he feels fatigued. Patient states "my mom is a chain smoker and has been staying with her less several days and does have the shortness of breath started." He states he is to be smoker but quit in the past. Past Medical History: Diagnosis Date Anxiety Arrhythmia Arthritis Asthma COPD (chronic obstructive pulmonary disease) (HCC) Diabetes (HCC) Hypertension Opioid dependence (HCC) Past Surgical History: Procedure Laterality Date APPENDECTOMY ARTHROPLASTY KNEE TOTAL ROBOTIC ASSISTED Right 01/08/2020 Procedure: Right Total Knee Replacement Robotic; Surgeon: Sofía Dukes MD; Location: Main OR; Service: Ortho-Robotics FOOT SURGERY Left MANDIBLE FRACTURE SURGERY ORTHOPEDIC SURGERY Right knee THORACIC DUCT LIGATION 01/15/2017 THORACIC DUCT LIGATION Family History Problem Relation Age of Onset Heart disease Mother Diabetes Mother Social History Socioeconomic History Marital status: Single Spouse name: Not on file Number of children: Not on file Years of education: Not on file Highest education level: Not on file Occupational History Not on file Social Needs Financial resource strain: Not on file Food insecurity Worry: Not on file Inability: Not on file Transportation needs Medical: Not on file Non-medical: Not on file Tobacco Use Smoking status: Former Smoker Types: Cigarettes Quit date: 01/25/2007 Years since quittin.7 Smokeless tobacco: Current User Types: Chew Substance and Sexual Activity Alcohol use: Not Currently Frequency: Never Drug use: Yes Types: Marijuana Sexual activity: Not on file Lifestyle Physical activity Days per week: Not on file Minutes per session: Not on file Stress: Not on file Relationships Social connections Talks on phone: Not on file Gets together: Not on file Attends lutheran service: Not on file Active member of club or organization: Not on file Attends meetings of clubs or organizations: Not on file Relationship status: Not on file Other Topics Concern Not on file Social History Narrative Merged History Encounter Previous Medications Medication Sig albuterol (PROVENTIL) 2.5 mg /3 mL (0.083 %) nebulizer solution Take 3 mL (2.5 mg total) by nebulization every 6 (six) hours as needed for wheezing . albuterol (PROVENTIL) 2.5 mg /3 mL (0.083 %) nebulizer solution USE ONE AMPULE (3ML) BY NEBULIZER EVERY 6 HOURS NEEDED albuterol 90 mcg/actuation inhaler Inhale 2 puffs every 6 (six) hours as needed for wheezing. albuterol 90 mcg/actuation inhaler Inhale 2 (two) puffs every 6 (six) hours as needed for wheezing . azithromycin (ZITHROMAX) 250 MG tablet 2 tabs day 1 and 1 daily TG . Bevespi Aerosphere 9-4.8 mcg HFAA Inhale 2 puffs 2 (two) times a day . buprenorphine HCL (SUBUTEX) 8 mg SL Tablet DISSOLVE ONE TABLET UNDER THE TONGUE TWICE DAILY gabapentin (NEURONTIN) 800 MG tablet Take 800 mg by mouth 3 (three) times a day. gabapentin (NEURONTIN) 800 MG tablet Take 800 mg by mouth 3 (three) times a day . lisinopril (PRINIVIL,ZESTRIL) 20 MG tablet Take 20 mg by mouth daily. pantoprazole (PROTONIX) 20 MG tablet Take 1 (one) tablet (20 mg total) by mouth daily Start: 01/09/20. No Known Allergies Review of Systems Constitutional: Positive for fatigue. Respiratory: Positive for shortness of breath. All other systems reviewed and are negative. Patient Vitals for the past 24 hrs: BP Temp Temp src Pulse Resp SpO2 Height Weight 11/01/20 1800 133/83 63 97 % 11/01/20 1715 133/70 65 97 % 11/01/20 1700 (!) 149/77 66 97 % 11/01/20 1626 96 % 11/01/20 1607 (!) 149/79 78 96 % 11/01/20 1600 (!) 151/84 98.7 F (37.1 C) Oral 84 18 97 % 6' 122.5 kg (270 lb) Physical Exam Vitals signs and nursing note reviewed. Constitutional: General: He is in acute distress. Appearance: He is ill-appearing. He is not toxic-appearing or diaphoretic. HENT: Head: Normocephalic and atraumatic. Neck: Musculoskeletal: Normal range of motion and neck supple. Cardiovascular: Rate and Rhythm: Normal rate and regular rhythm. Pulses: Normal pulses. Heart sounds: Normal heart sounds. No friction rub. Pulmonary: Effort: Tachypnea present. Comments: There is diffusely decreased breath sounds bilaterally with moderate wheezing especially end expiratory wheezing Abdominal: General: Bowel sounds are normal. Palpations: Abdomen is soft. Tenderness: There is no abdominal tenderness. There is no guarding or rebound. Musculoskeletal: Normal range of motion. Comments: There are bilateral nonpitting edema Neurological: General: No focal deficit present. Mental Status: He is oriented to person, place, and time. Laboratory & Radiographic Imaging (if done): Results for orders placed or performed during the hospital encounter of 11/01/20 Comprehensive Metabolic Panel Result Value Ref Range Sodium 136 135 - 145 mmol/L Potassium 4.4 3.5 - 5.1 mmol/L Chloride 106 98 - 108 mmol/L Bicarbonate 27 21 - 32 mmol/L Anion Gap 7 (L) 10 - 20 mmol/L Glucose 106 (H) 65 - 99 mg/dL BUN 13 8 - 25 mg/dL Creatinine 0.59 0.50 - 1.30 mg/dL eGFR 115 >=60 mL/min/1.73 m2 BUN/Creatinine Ratio 22.0 (H) 10.0 - 20.0 Total Protein 7.5 6.0 - 8.0 g/dL Albumin 3.2 3.2 - 5.2 g/dL Calcium 8.5 8.4 - 10.2 mg/dL Alkaline Phosphatase 79 40 - 150 U/L AST 43 0 - 45 U/L Total Bilirubin 1.2 0.0 - 1.3 mg/dL ALT 48 14 - 65 U/L Light Blue Top Result Value Ref Range Extra Tube Hold for add-ons. Troponin Result Value Ref Range Troponin I <15 <=45 ng/L Troponin I Interpretation Normal NT Pro BNP Result Value Ref Range NT-Pro BNP 137 0 - 300 pg/mL ECG 12- Lead Result Value Ref Range Ventricular Rate 70 BPM Atrial Rate 70 BPM P-R Interval 158 ms QRS Duration 82 ms Q-T Interval 400 ms QTC Calculation (Bezet) 432 ms P [place] 75 degrees R [place] 65 degrees T [place] 66 degrees CBC Auto Differential Result Value Ref Range WBC 4.93 4.50 - 11.00 K/mcL RBC 5.05 4.50 - 5.90 M/mcL Hemoglobin 11.3 (L) 13.5 - 17.5 g/dL Hematocrit 36.1 (L) 41.0 - 53.0 % MCV 71.5 (L) 80.0 - 100.0 fL MCH 22.4 (L) 26.0 - 34.0 pg MCHC 31.3 31.0 - 37.0 g/dL Platelets 123 (L) 150 - 400 K/mcL RDW - CV 16.8 (H) 11.6 - 14.8 % MPV 9.4 9.4 - 12.4 fL Neutrophils 75.1 % Lymphocytes 16.0 % Monocytes 7.1 % Eosinophils 1.0 % Basophils 0.2 % IG Percent 0.60 % Neutrophils Abs 3.70 1.70 - 7.00 K/mcL Lymphocytes Abs 0.79 (L) 0.90 - 4.00 K/mcL Monocytes Abs 0.35 0.30 - 0.90 K/mcL Eosinophils Abs 0.05 0.00 - 0.50 K/mcL Basophils Abs 0.01 0.00 - 0.30 K/mcL IG Absolute 0.03 0.00 - 0.30 K/mcL Nucleated RBC 0.0 % Nucleated RBC Abs 0.00 0.00 - 0.00 K/mcL XR Chest 1 View Preliminary Result No acute cardiopulmonary process. ST/dnb Workstation ID: [id number] Procedures MDM Number of Diagnoses or Management Options COPD exacerbation (HCC) Diagnosis management comments: This is a 55-year-old male with history of COPD coming into the emergency room with acute shortness of breath. He denies fever or chills or new productive cough associated with it. He also denies chest or abdominal pain or leg pain or leg swelling. Patient has some moderate wheezing especially at the end expiratory respiratory phase diffusely and bilaterally. This is suggestive of COPD exacerbation. Patient received a DuoNeb. He tells me after the DuoNeb his shortness of breath has resolved. Patient's chest x-ray, CMP and CBC lab results are within normal limits. BNP is normal at 137 patient received prednisone 60 mg p.o. and discharged home. Is to go home and feels happy is negative work-up and care he had received here in the emergency department. EKG obtained here reveals normal sinus rhythm with particular rate [address] changes or AV blocks. No axis deviation noted. . Clinical Impression: 1. COPD exacerbation (HCC) ED Disposition ED Disposition Condition Comment Discharge Stable Carmen Gilman discharged to home/self care in stable condition. Follow-up Information Follow-up information has not been specified. Contact information for after-discharge care Follow-up information has not been specified. Christopher Ng MD 11/01/201913 Christopher Ng MD 11/01/201914 Pt presents to ER for worsening SOB over past couple days. Reports SOB upon exertion and at rest. Denies fever/chills, denies cough. Pt has been using home breathing tx w/ no relief. Bed: 25 Expected date: Expected time: Means of arrival: Comments: NEXT 3 documented in this encounter Respiratory called and notified pt COVID is negative. RT states they will be down shortly. Associated Order(s): EKG 12-lead PCP - Mari Lee MD Chief Complaint Patient presents with Cough Shortness of Breath HPI, MDM, & ED COURSE Mr. Gilman is a 55M with hx of asthma/COPD presenting here for chief complaint of shortness of breath and productive cough which have been constant and gradually worsening over the last 2 to 3 days. He notes subjective fever and chills at home last night, but did not check his temperature. He notes exertional dyspnea along with left sided chest pain only with his cough. Aside from pain with cough he does not meet chest pain or pain with inspiration. No syncope or presyncope, nausea or vomiting, abdominal pain, diarrhea or constipation. Patient with bilateral pedal edema which he states is at baseline. He has no personal or family history of DVT/PE. Patient states his symptoms are similar to prior episodes of pneumonia. No recent antibiotics or travel. He had received steroids for COPD flare about a month ago. He is not on oxygen at home. He notes that he required intubation last year for severe COPD exacerbation. He feels that that was much worse than this episode. Patient arrives here 84% on room air with very poor air movement. He received Solu-Medrol and 2 DuoNeb treatments. Prior to DuoNeb treatments he is requiring 4 to 5 L nasal cannula oxygen, but after DuoNeb treatments he is moving air much better and is now only requiring 2 L nasal cannula oxygen. He has chest x-ray concerning for pneumonia. He has cough productive of thick yellow sputum in the emergency department which is unusual for him. Given the chest x-ray findings and subjective fever and chills along with productive cough he was covered with Rocephin and azithromycin. He has benign VBG, troponin, and lactic acid. Patient is agreeable to admission here and was accepted by Dr. Sinha. IMPRESSION 1. Community acquired pneumonia, unspecified laterality 2. Chronic obstructive pulmonary disease, unspecified COPD type (HCC) Review of Systems All systems reviewed and negative except as mentioned in HPI or as noted below: Constitutional: Unintended weight loss NO Eyes: Eye Drainage NO ENT: New hearing loss NO Respiratory: Apnea spells NO CV: Lower extremity edema NO GI: Abdominal distension NO : Urinary Retention NO Heme: Unexplained bruising NO Endocrine: Heat intolerance NO Neuro: New tremor NO Past Medical History Past Medical History: Diagnosis Date Anxiety Arrhythmia Arthritis Asthma COPD (chronic obstructive pulmonary disease) (HCC) Diabetes (HCC) Hypertension Opioid dependence ([facility]) Past Surgical History Past Surgical History: Procedure Laterality Date APPENDECTOMY ARTHROPLASTY KNEE TOTAL ROBOTIC ASSISTED Right 01/08/2020 Procedure: Right Total Knee Replacement Robotic; Surgeon: Sofía Dukes MD; Location: Main OR; Service: Ortho-Robotics FOOT SURGERY Left MANDIBLE FRACTURE SURGERY ORTHOPEDIC SURGERY Right knee THORACIC DUCT LIGATION 01/15/2017 THORACIC DUCT LIGATION Family History Family History Problem Relation Age of Onset Heart disease Mother Diabetes Mother Social History Social History Tobacco Use Smoking status: Former Smoker Types: Cigarettes Quit date: 01/25/2007 Years since quittin.8 Smokeless tobacco: Current User Types: Chew Substance Use Topics Alcohol use: Not Currently Frequency: Never Drug use: Yes Types: Marijuana Allergies No Known Allergies Medications Carmen Gilman [place] Medication Instructions Prior to Surgery BENJA:[id number] Printed on:12/03/20 0763 Medication Information Take last dose on Take the morning of surgery Comment(s) albuterol (PROVENTIL) 2.5 mg /3 mL (0.083 %) nebulizer solution Take 3 mL (2.5 mg total) by nebulization every 6 (six) hours as needed for wheezing . albuterol (PROVENTIL) 2.5 mg /3 mL (0.083 %) nebulizer solution USE ONE AMPULE (3ML) BY NEBULIZER EVERY 6 HOURS NEEDED albuterol 90 mcg/actuation inhaler Inhale 2 puffs every 6 (six) hours as needed for wheezing. albuterol 90 mcg/actuation inhaler Inhale 2 (two) puffs every 6 (six) hours as needed for wheezing . azithromycin (ZITHROMAX) 250 MG tablet 2 tabs day 1 and 1 daily TG . Bevespi Aerosphere 9-4.8 mcg HFAA Inhale 2 puffs 2 (two) times a day . buprenorphine HCL (SUBUTEX) 8 mg SL Tablet DISSOLVE ONE TABLET UNDER THE TONGUE TWICE DAILY gabapentin (NEURONTIN) 800 MG tablet Take 800 mg by mouth 3 (three) times a day. gabapentin (NEURONTIN) 800 MG tablet Take 800 mg by mouth 3 (three) times a day . lisinopril (PRINIVIL,ZESTRIL) 20 MG tablet Take 20 mg by mouth daily. pantoprazole (PROTONIX) 20 MG tablet Take 1 (one) tablet (20 mg total) by mouth daily Start: 01/09/20. Physical Exam Initial Vital Signs BP 136/76 (BP Location: Left arm, Patient Position: Sitting) Pulse 75 Temp 98.1 F (36.7 C) (Oral) Resp 18 Ht 6' Wt 120.2 kg (265 lb) SpO2 98% BMI 35.94 kg/m Vital Signs During ED Visit (as charted by nursing) Patient Vitals for the past 24 hrs: BP Temp Temp src Pulse Resp SpO2 Height Weight 12/03/20 1230 136/76 75 18 98 % 12/03/20 1128 (!) 152/72 98.1 F (36.7 C) Oral 84 18 (!) 84 % 6' 120.2 kg (265 lb) Physical Exam Vitals signs and nursing note reviewed. Constitutional: General: He is not in acute distress. Appearance: He is well-developed. HENT: Head: Normocephalic and atraumatic. Eyes: Extraocular Movements: Extraocular movements intact. Pupils: Pupils are equal, round, and reactive to light. Neck: Musculoskeletal: Normal range of motion and neck supple. Cardiovascular: Rate and Rhythm: Normal rate and regular rhythm. Pulmonary: Comments: Patient is tachypneic at about 20 with accessory muscle use with mild diffuse wheezing and severely diminished breath sounds bilaterally. No stridor or rhonchi or rales. On repeat lung exam after DuoNebs, patient is moving air much better aside from remaining diminished in the left lung base. He has some mild residual wheezing. Abdominal: Palpations: Abdomen is soft. Tenderness: There is no abdominal tenderness. Musculoskeletal: Normal range of motion. General: No deformity. Comments: Patient with bilateral pedal edema and chronic venous stasis changes without any tenderness which he states is stable to the bilateral lower extremities. Skin: General: Skin is warm and dry. Neurological: General: No focal deficit present. Mental Status: He is alert and oriented to person, place, and time. Psychiatric: Mood and Affect: Mood normal. Behavior: Behavior normal. Labs Reviewed BASIC METABOLIC PANEL - Abnormal; Notable for the following components: Result Value Anion Gap 9 (*) Glucose 126 (*) BUN/Creatinine Ratio 23.4 (*) Calcium 8.2 (*) All other components within normal limits Narrative: The eGFR should be used for monitoring renal function only and not for medication dosing. POC VENOUS BLOOD GASES - RALS - Abnormal; Notable for the following components: pO2, Kojo 54 (*) O2 Sat, Kojo 87.0 (*) Hemoglobin 12.2 (*) Hematocrit 36 (*) All other components within normal limits CBC WITH AUTO DIFFERENTIAL - Abnormal; Notable for the following components: Hemoglobin 10.7 (*) Hematocrit 33.1 (*) MCV 70.3 (*) MCH 22.7 (*) Platelets 101 (*) RDW - CV 16.3 (*) Lymphocytes Abs 0.50 (*) All other components within normal limits MORPHOLOGY - Abnormal; Notable for the following components: Platelet Estimate Decreased (*) All other components within normal limits COVID-19/INFLUENZA A,B MOLECULAR - Normal LACTIC ACID, PLASMA - Normal CBC AND DIFFERENTIAL Narrative: The following orders were created for panel order CBC w/ Diff. Procedure Abnormality Status --------- ------ CBC Auto Differential[[id number]] Abnormal Final result CBC and Diff Morphology[[id number]] Abnormal Final result Please view results for these tests on the individual orders. TROPONIN OBTAIN VENOUS BLOOD GASES AND PERFORM Radiographic Imaging (if any) During ED Visit XR Chest 1 View Preliminary Result Ill-defined ground-glass opacity at the right lung base, may be accentuated by positioning. Cannot exclude underlying pneumonia. Small bibasilar pleural effusions. No overt pulmonary edema. ST/mll Workstation ID: [id number] Medications Ordered/Given During ED Visit Medications cefTRIAXone (ROCEPHIN) 1000 mg in sodium chloride (NS) 0.9% 50 mL MBP (1,000 mg Intravenous New Bag 12/03/20 1331) ipratropium-albuteroL (DUO-NEB) 0.5-2.5 mg/3 ml nebulizer solution 3 mL (3 mL Inhalation Given 12/03/20 1308) methylPREDNISolone sod suc(PF) (SOLU-medrol) Injection 125 mg (125 mg Intravenous Given 12/03/20 1207) ipratropium-albuteroL (DUO-NEB) 0.5-2.5 mg/3 ml nebulizer solution 3 mL (3 mL Inhalation Given 12/03/20 1307) azithromycin (ZITHROMAX) tablet 500 mg (500 mg Oral Given 12/03/20 1331) EKG 12-lead Date/Time: 12/03/2020 11:48 AM Performed by: Maury Garcia DO Authorized by: Maury Garcia DO Interpreted by ED attending physician BPM: 86 Comments: EKG interpreted by me shows normal sinus rhythm at 86 with normal axis and intervals. Normal ST segments. Normal EKG. Maury Garcia DO 12/03/20 1336 Pt C/o cough with phlegm production and SOB that started yesterday. Pt took inhaler at home with no relief. 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 documented in this encounter Sofía Dukes MD - 01/08/2020 6:50 AM EDTBSofía craig MD - 01/04/2020 3:35 PM EDTCVenancio faulkner MD - 07/08/2020 1:21 AM EST H&P Notes (unrecognized sect ion and content) INTERVAL HISTORY AND PHYSICAL Patient Name: Carmen Gilman Admit Date: MR #: [id number] : 1965 The H&P has been reviewed and the patient has been examined. I concur with the findings of the H&P. There are no significant changes. It is appropriate to proceed with the planned procedure. Sofía Dukes MD 01/08/2020 6:50 AM HISTORY OF PRESENT ILLNESS He is here for his preoperative consultation regarding his right knee degenerative arthrosis. He is looking forward to the surgery. He said the pain is miserable. He cannot do anything. He cannot walk. He cannot work. He cannot function. This gentleman says that he has just absolutely been in a situation with the right knee that is debilitating. At a young age of 54, he has used a cane to get around with, and at times he has had use a walker to get around with. He says he has tried pills, shots, and physical therapy with no relief. He has worn knee braces, and he just said he just cannot take the pain anymore. It is a 9/10 pain on a daily basis. Patient now presents for right knee replacement. PAST MEDICAL HISTORY Reveals severe tricompartmental degenerative arthrosis, right knee. Past medical history includes a history of anxiety, asthma, COPD, diabetes, and hypertension. SURGERIES Appendectomy, foot surgery, mandibular fracture surgery, thoracic duct ligation. HOME MEDICATION REGIMEN Includes albuterol, buprenorphine, Neurontin, Prinivil, tiotropium. ALLERGIES None. SOCIAL HISTORY He does not smoke. He does chew snuff on occasion. REVIEW OF SYSTEMS Joint pain, arthralgias, knee pain. History of an emergency room visit back in March 2019 with an exacerbation of his asthma. PHYSICAL EXAM General: He is awake, alert, and oriented x3. He ambulates with a significantly antalgic gait with a cane. Chest: Clear. Heart: Has regular rate and rhythm. Abdomen: Soft, nontender. No palpable masses. Extremities: Right lower extremity has 1+ edema. He has 2+ pulses. Full range of motion of the ankle and hip. Right knee has a 7-degree knee flexion contracture with only 95 degrees of knee flexion, severe crepitus, mild knee effusion. No ligamentous instability. Tenderness on the medial and lateral joint line. Skin: Intact without lesion. He is normocephalic. IMPRESSION Severe right knee degenerative arthrosis. PLAN At this point in time, I have discussed all the treatment options with the patient. Patient was part of the entire decision-making process. I informed him we will be doing a [place] robotic-assisted total knee replacement using [place] Total Knee Replacement System. I did a narcotics review on this gentleman, and he has his regular scheduled gabapentin and buprenorphine from his pain specialist. The proposed procedure is outpatient with an expected discharge on the same day as the procedure. I discussed with the patient that while we practice appropriate precautions consistent with prevailing medical standards any contact with any person on any setting at this time represents a risk of transmission and contraction of COVID- 19. The patient was also informed that COVID-19 testing will be performed within 72 hours of the procedure. The patient wishes to proceed. I also explained to him that he will only get a 2-week supply of his postoperative narcotics, and then he will transition back to his Suboxone. The gentleman does understand this. documented in this encounter [facility] Inpatient H&P 07/08/2020 Venancio Quiros MD [facility] Patient: Carmen Gilman Date of : 1965 (54 y.o.) PCP: Mari Lee MD ASSESSMENT/PLAN: Carmen Gilman 54 y.o. male with: Principal Problem: Acute exacerbation of chronic obstructive pulmonary disease (COPD) (HCC) Active Problems: Acute on chronic respiratory failure with hypoxia and hypercapnia (HCC) Atrial fibrillation with rapid ventricular response (HCC) Acute congestive heart failure (HCC) Essential hypertension Type 2 diabetes mellitus, without long-term current use of insulin (HCC) Morbid obesity with BMI of 40.0-44.9, adult ([facility]) PLAN: Inpatient admission to critical care. Cardiac monitoring. Vent support. Pain/sedation protocol with fentanyl and propofol. Early mobility protocol. Clinical Laboratory Aides Teacher referral for tube feed recommendations. KUB to confirm OG tube placement. Tavera for accurate UOP monitoring. Measurement Operator consult. Steroids, DuoNebs, Pulmicort, azithromycin. Sputum and blood cultures pending. Serial troponins. Heparin and diltiazem infusions. Keep Mg > 2 and K > 4. Electrolyte replacement protocols. Check D-dimer. If elevated obtain CTA pulmonary arteries. Suspect aspect of CHF exacerbated by atrial fibrillation with RVR. Echo. Cardiology consult. Lasix. Sliding scale insulin. Check A1c. DVT ppx covered with heparin infusion. FULL CODE-Unverified. I have personally spent 45 minutes providing critical care services apart from separately billable procedures. SUBJECTIVE: Chief Complaint/Reason for Visit: Shortness of breath. History of Present Illness: Carmen Gilman is a 54 y.o. male presenting with complaint of shortness of breath. Patient unable to provide history due to being intubated and sedated in the ED. Per ED provider note: Patient is a 54 years old male with multiple medical problems including history of COPD, CHF, brought to the ED by EMS for respiratory distress. EMS report patient called at home With complaint of difficulty breathing, EMS reports upon arrival at the scene he was hypoxic 76% he was given Solu-Medrol 125 mg IV and placed on nonrebreather upon arrival to the ED he was hypoxic, noted to be in severe respiratory distress, tachypneic, tachycardic, Retractions, he was immediately given a DuoNeb with no improvement in his symptoms, concerning for airway compromise patient was immediately intubated using RSI with symptomatic improvements and currently on the vent , sedated with propofol. There is diffuse bilateral +3 pitting edema noted physical exam with Wheezing noted. No further information is obtained as no family members is at bedside patient is currently intubated on the vent." Past Medical History: Diagnosis Date Anxiety Arthritis Asthma COPD (chronic obstructive pulmonary disease) (HCC) Diabetes (HCC) Hypertension Opioid dependence (HCC) Past Surgical History: Procedure Laterality Date APPENDECTOMY FOOT SURGERY Left MANDIBLE FRACTURE SURGERY ORTHOPEDIC SURGERY Right knee THORACIC DUCT LIGATION Allergies: Patient has no known allergies. Home Medications: No current outpatient medications on file as of 07/08/2020. Family History Problem Relation Age of Onset Heart disease Mother Diabetes Mother Social History Tobacco Use Smoking Status Former Smoker Types: Cigarettes Smokeless Tobacco Current User Types: Chew Review of Systems: Unable to perform ROS due to patient's being sedated on ventilator. OBJECTIVE: Physical Examination: BP (!) 114/97 Pulse (!) 130 Temp 96.8 F (36 C) Resp (!) 40 Wt 135.9 kg (299 lb 9.7 oz) SpO2 100% General Appearance: In no apparent distress, Intubated and sedated. Morbidly obese. HEENT: Head: Normocephalic, no lesions, without obvious abnormality. Eye: Normal external eye, conjunctiva, lids cornea, PERRL. Nose: Normal external nose, mucus membranes and septum. Neck: nontender, no stridor Respiratory: no tachypnea or accessory muscle use, diffuse wheezes with prolonged expiratory phase and rhonchi. No rales. Cardiovascular: regular rate and rhythm, no murmur, brisk capillary refill, 3+ BLE pitting edema. Abdominal: soft, nontender, nondistended, no hepatosplenomegaly, no mass, normal bowel sounds Skin: No ecchymoses. Bronze coloration with chronic venous stasis changes of the BLE. Normal turgor. No rashes. Neurological: Withdraws from painful stimuli in all extremities. No focal deficits. Musculoskeletal: No joint tenderness, deformity or swelling. Psychiatric: Sedated on ventilator. Laboratory and Additional Data Reviewed: Reviewed 07/08/20 1:47 AM: Laboratory, Microbiology, Radiology, Cardiology and Medications Recent Results (from the past 24 hour(s)) Chem 7 Collection Time: 07/07/20 10:43 PM Result Value Ref Range Sodium 136 135 - 145 mmol/L Potassium 4.2 3.5 - 5.1 mmol/L Chloride 104 98 - 111 mmol/L Bicarbonate 21 21 - 32 mmol/L Creatinine 1.05 1.00 - 1.70 mg/dL Glucose 188 (H) 65 - 99 mg/dL BUN 16 8 - 25 mg/dL eGFR 41 (L) >=60 mL/min/1.73 m2 eGFR 47 (L) >=60 mL/min/1.73 m2 BUN/Creatinine Ratio 15.2 10.0 - 20.0 Anion Gap 15 10 - 20 mmol/L NT Pro BNP Collection Time: 07/07/20 10:43 PM Result Value Ref Range NT-Pro BNP 266 0 - 300 pg/mL Troponin x 2 (Now and Repeat in 3 hours) Collection Time: 07/07/20 10:43 PM Result Value Ref Range Troponin I <15 <=45 ng/L Troponin I Interpretation Normal COVID-19, Molecular Collection Time: 07/07/20 10:43 PM Specimen: Nasopharyngeal; Swab Result Value Ref Range SARS-CoV-2 Not Detected Not Detected CBC Auto Differential Collection Time: 07/07/20 10:43 PM Result Value Ref Range WBC 11.69 (H) 4.50 - 11.00 K/mcL RBC 5.43 4.50 - 5.90 M/mcL Hemoglobin 12.0 (L) 13.5 - 17.5 g/dL Hematocrit 39.7 (L) 41.0 - 53.0 % MCV 73.1 (L) 80.0 - 100.0 fL MCH 22.1 (L) 26.0 - 34.0 pg MCHC 30.2 (L) 31.0 - 37.0 g/dL Platelets 237 150 - 400 K/mcL RDW - CV 17.2 (H) 11.6 - 14.8 % MPV 10.0 9.4 - 12.4 fL Neutrophils 51.5 % Lymphocytes 36.1 % Monocytes 7.5 % Eosinophils 3.3 % Basophils 0.4 % IG Percent 1.20 % Neutrophils Abs 6.01 1.70 - 7.00 K/mcL Lymphocytes Abs 4.22 (H) 0.90 - 4.00 K/mcL Monocytes Abs 0.88 0.30 - 0.90 K/mcL Eosinophils Abs 0.39 0.00 - 0.50 K/mcL Basophils Abs 0.05 0.00 - 0.30 K/mcL IG Absolute 0.14 0.00 - 0.30 K/mcL Nucleated RBC 0.3 % Nucleated RBC Abs 0.03 (H) 0.00 - 0.00 K/mcL Urine Drug Screen Collection Time: 07/07/20 11:34 PM Result Value Ref Range Amphetamine Screen, Urine None Detected None Detected Barbiturate Screen, Urine None Detected None Detected Benzodiazepine Screen, Urine None Detected None Detected Cannabinoid Screen, Urine Presumptive Positive (A) None Detected Cocaine, Screen Urine None Detected None Detected Methadone Screen, Urine None Detected None Detected Opiate Screen, Urine None Detected None Detected Oxycodone Screen, Urine None Detected None Detected POC Arterial Blood Gas Panel-Pulm Collection Time: 07/07/20 11:46 PM Result Value Ref Range pH, Arterial 7.15 (CL) 7.35 - 7.45 pCO2, Arterial 77.0 (H) 35.0 - 45.0 mm Hg pO2, Arterial 531 (H) 80 - 100 mm Hg Base Excess, Arterial -3.5 (L) -2.0 - 2.0 HCO3, Arterial 26.9 (H) 22.0 - 26.0 mmol/L Hemoglobin, Blood Gas 12.7 (L) 13.5 - 18.0 g/dL Hematocrit, Calculated 38.8 (L) 41.0 - 53.0 % FIO2 [address] ignacio Specimen Source Brachial, left IMV 0 TIDAL VOLUME 500 PEEP 5 RESP RATE 16 [id number] 66.6 mm Hg POC Arterial Blood Gas Panel-Pulm Collection Time: 07/07/20 11:46 PM Result Value Ref Range pH, Arterial 7.15 (CL) 7.35 - 7.45 pCO2, Arterial 77.0 (H) 35.0 - 45.0 mm Hg pO2, Arterial 531 (H) 80 - 100 mm Hg Base Excess, Arterial -3.5 (L) -2.0 - 2.0 HCO3, Arterial 26.9 (H) 22.0 - 26.0 mmol/L Hemoglobin, Blood Gas 12.7 (L) 13.5 - 18.0 g/dL Hematocrit, Calculated 38.8 (L) 41.0 - 53.0 % FIO2 [address] ignacio Specimen Source Brachial, left IMV 0 TIDAL VOLUME 500 PEEP 5 RESP RATE 16 [id number] 66.6 mm Hg Lactic Acid, Plasma Collection Time: 07/08/20 12:09 AM Result Value Ref Range Lactic Acid 2.4 (H) 0.6 - 2.0 mmol/L Alcohol, Medical Collection Time: 07/08/20 12:09 AM Result Value Ref Range Alcohol (Medical) <10.00 <10.00 mg/dL EKG: Reviewed 07/08/20 1:47 AM Atrial fibrillation with rapid ventricular response Nonspecific ST abnormality Abnormal QRS-T angle, consider primary T wave abnormality Abnormal ECG Vent. rate 150 BPM SC interval * ms QRS duration 88 ms QT/QTc 320/505 ms P-R-T axes * 59 -16 CULTURES: Reviewed 07/08/20 1:47 AM Blood cultures pending from ED. Radiology/Imaging: Reviewed 07/08/20 1:47 AM Xr Chest 1 View Result Date: 07/07/2020 EXAMINATION: XR CHEST PA/AP 07/07/2020 10:41 pm HISTORY: ORDERING SYSTEM PROVIDED HISTORY: post intubation, TECHNOLOGIST PROVIDED HISTORY: Illness/Other Reason for exam: post intubation Cancer History: NA Surgery, RadiationHistory: NA Encounter Type: Initial Additional signs and symptoms: . ORDERING SYSTEM PROVIDED DIAGNOSIS CODES: COMPARISON: Portable chest from 04/03/2019. FINDINGS: Trachea, mediastinum and heart size are unremarkable. The lungs are clear and well aerated. No infiltrate or nodule or effusion is noted. There is a feeding tube that progresses below the diaphragm off the field of view into the upper abdomen. Tip of the ET tube is 5.5 cm above the virgie. 1. Nonacute portable chest. 2. Tip of the ET tube is 5.5 cm above the virgie. Workstation ID: [id number] Pending Lab and Radiology Results Order Current Status Blood Culture Aerobic/Anaerobic In process Blood Culture Aerobic/Anaerobic In process Hemoglobin A1c In process Hepatic Function Panel In process XR Abdomen AP In process Interpretation of Testing: I personally reviewed the EKG and Chest X-ray and agree with the interpretation(s). documented in this encounter INTERNAL MEDICINE HISTORY AND PHYSICAL 12/04/2020 Felipe Sinha, [facility] Patient: Carmen Gilman Date of : 1965 (55 y.o.) PCP: Mari Lee MD ASSESSMENT/PLAN: COPD with acute exacerbation ([facility]) Mr. Gilman is a very pleasant 55-year-old male with a past medical history significant for hypertension, type 2 diabetes mellitus, and known COPD who was hospitalized within the last year with an acute exacerbation of COPD that was severe requiring intubation and mechanical ventilation at that time. The patient presents to [place] emergency room yesterday with severe shortness of breath and relative hypoxia and did improve with some nebulized bronchodilators but a chest x-ray revealed a right lower lobe infiltrate and the patient was having a productive cough of yellow sputum. The patient was admitted at this time for an acute exacerbation of COPD likely secondary to right lower lobe pneumonia and IV antibiotics, IV steroids, nebulized bronchodilators, supplemental oxygen as needed will be provided. Initial EKG did not reveal any acute cardiac ischemia and initial troponins were undetectable but will continue with serial troponins as well as continuous cardiac monitoring at this time. Currently this a.m. the patient states he is feeling significantly better and denies any chest pain and states his shortness of breath is at least 75% improved however he continues to have prolonged expiratory phase with diminished breath sounds in the bilateral bases right greater than left. His productive cough has improved but continues with some yellow sputum production. He denies any nausea or vomiting, diarrhea or constipation, dizziness or headache. Type 2 diabetes mellitus without complication, without long-term current use of insulin ([facility]) Patient currently not on antihyperglycemic medications and will continue to monitor closely since he will be on IV steroids at this time. Essential hypertension Blood pressures currently well controlled on current regimen of diltiazem 240 mg daily and lisinopril 20 mg daily. Opioid dependence ([facility]) Patient denies any illicit drug use and is currently on Suboxone 8 mg twice daily. We will continue and monitor closely. SUBJECTIVE: Chief Complaint/Reason for Visit: HISTORY OF PRESENT ILLNESS: Carmen Gilman is a 55 y.o. male admitted to [facility]. REVIEW OF SYSTEMS: Constitutional:No fever, no weight loss Eyes:No diplopia ENT:No sinus drainage CV:No chest pain. No ankle swelling GI:No abdominal pain.No abdominal distention :No dysuria Neuro:No headache Integumentary:No skin rash MuscSkel:No arthralgias Endo:No polyuria Heme/lymphatic:No apparent lymphadenopathy Allergic/Immunologic:No hives Psych:No unusual mood swings All other systems reviewed and negative other than HPI PAST MEDICAL HISTORY: Past Medical History: Diagnosis Date Anxiety Arrhythmia Arthritis Asthma COPD (chronic obstructive pulmonary disease) (HCC) Diabetes (HCC) Hypertension Opioid dependence (HCC) Past Surgical History: Procedure Laterality Date APPENDECTOMY ARTHROPLASTY KNEE TOTAL ROBOTIC ASSISTED Right 01/08/2020 Procedure: Right Total Knee Replacement Robotic; Surgeon: Sofía Dukes MD; Location: Main OR; Service: Ortho-Robotics FOOT SURGERY Left MANDIBLE FRACTURE SURGERY ORTHOPEDIC SURGERY Right knee THORACIC DUCT LIGATION 01/15/2017 THORACIC DUCT LIGATION PERSONAL AND SOCIAL HISTORY: Social History Tobacco Use Smoking Status Former Smoker Types: Cigarettes Quit date: 01/25/2007 Years since quittin.8 Smokeless Tobacco Current User Types: Chew FAMILY HISTORY: Family history reviewed Family History Problem Relation Age of Onset Heart disease Mother Diabetes Mother MEDICATIONS: Current HOME Medications: Outpatient Medications Marked as Taking for the 12/03/20 encounter (Hospital Encounter): albuterol (PROVENTIL) 2.5 mg /3 mL (0.083 %) nebulizer solution, USE ONE AMPULE (3ML) BY NEBULIZER EVERY 6 HOURS NEEDED albuterol 90 mcg/actuation inhaler, Inhale 2 puffs every 6 (six) hours as needed for wheezing. aspirin 81 MG EC tablet, Take 81 mg by mouth daily . Bevespi Aerosphere 9-4.8 mcg HFAA, Inhale 2 puffs 2 (two) times a day . buprenorphine HCL (SUBUTEX) 8 mg SL Tablet, DISSOLVE ONE TABLET UNDER THE TONGUE TWICE DAILY diltiazem (TIAZAC) 240 MG 24 hr capsule, Take 240 mg by mouth daily . gabapentin (NEURONTIN) 800 MG tablet, Take 800 mg by mouth 3 (three) times a day . lisinopril (PRINIVIL,ZESTRIL) 20 MG tablet, Take 20 mg by mouth daily. Current HOSPITAL Medications: No current facility-administered medications for this encounter. ALLERGIES: Patient has no known allergies. PHYSICAL EXAMINATION: BP 123/64 Pulse 76 Temp 98 F (36.7 C) (Oral) Resp 18 Ht 6' Wt 128.5 kg (283 lb 6.4 oz) SpO2 94% BMI 38.44 kg/m General Appearance: Alert and awake and in mild respiratory distress. HEENT: Head - atraumatic. No assymmetry Eyes : no jaundice no droop Neck: trachea midline. No LN and Thyroid Cardiovascular: S1, S2 normal. No murmurs trace edema. Respiratory: Diminished in the bilateral bases right greater than left with significant diffuse scattered bilateral end expiratory wheezes.. Abdomen: Soft, non-tender, non-distended, no masses or organomegaly Neurological: Grossly normal motor and sensory exam. No focal deficits. No tremors and no facial assymetry Musculoskeletal: No joint tenderness, Skin: Normal coloration and turgor. No rashes. Psych: Alert, oriented x 3. Normal mood and affect. LABORATORY DATA: Recent Labs 12/03/20 1201 12/03/20 1213 12/04/20 0836 NA 137 -- 137 K 3.8 -- 4.3 CL 105 -- 107 BUN 15 -- 18 CREATININE 0.64 -- 0.73 GLUCOSE 126* -- 203* CALCIUM 8.2* -- 8.2* WBC 5.74 -- 5.15 HGB 10.7* 12.2* 10.5* HCT 33.1* 36* 32.9* PLT 101* -- 100* RADIOLOGICAL DATA: Reviewed 12/04/20 Radiology documented in this encounter Shira Armstrong, OT - 01/08/2020 3:44 PM Radha Doe, PT - 01/08/2020 2:07 PM Judith Denton LISW - 01/08/2020 1:38 PM EDRosaline Canada LISW - 07/09/2020 3:45 PM EST Consult Notes (unrecognized section and content) Occupational Therapy OCCUPATIONAL THERAPY EVALUATION NOTE Dx: R knee degenerative arthrosis Sx: R TKR 01/08/2020 Skilled Therapy Needs After Discharge Anticipate Resolution of Current Assessment Limitations Including: Pain Are Skilled Therapy Services Needed After Discharge: No DME Recommendation: Wheeled walker, Elevated toilet seat, Tub seat DME Rationale: Patient's condition creates an increased risk of safety hazard without recommended equipment, Patient's condition prevents him/her from accomplishing ADL without recommended equipment Rehab Potential: Good Outcomes Measures Prior Function Daily Activity: Raw Score: 23 Prior Function Daily Activity % Impaired: 15.86% functionally impaired AM-PAC Daily Activity: Raw Score: 18 AM-PAC Daily Activity % Impaired: 46.65% functionally impaired Occupational Therapy Assessment The patient's current functional participation deficits are LE dressing, bathing, toileting, functional mobility. This reduced independence will limit their life roles of premorbid level individual. The patient's co morbidities do affect patient performance in the above activities and roles. The performance deficits are a result of musculoskeletal impairment(s) in right, lower extremity including strength, balance, acitvity tolerance, pain, problem solving, sequencing, safety, and pain intolerance, knowledge deficit. The patient's home setup is a barrier, family / caregiver support is a hand flesher for return to prior level of function. The patient's compliance is a hand flesher, awareness of own capacity and performance is a hand flesher to return to prior level of function. During the assessment, minimal to moderate modification of task was required and limited treatment options were identified in the plan of care. This consultation required brief review of the medical and therapy history. Activity Tolerance Activity Tolerance: Tolerates 10 - 20 min activity with multiple rests Therapy Precautions Orthotic Devices: No Weight Bearing Status: X RLE: Full Wt bearing General Rehab Precautions: Fall risk Cognition Overall Cognitive Status: Within Functional Limits Arousal/Alertness: Appropriate responses to stimuli Orientation Level: Oriented X4 Executive functioning: WFL Safety Judgment: Good awareness of safety precautions Problem Solving: Assistance required to identify errors made Attention: Attends to quiet environment Hearing Status: WFL Social Interaction: WFL ADL/IADL Feeding: Independent Grooming : (CR - independent) UE Dressing: Stand by assistance LE Dressing: Stand by assistance, Dependent Toileting : Stand by assistance Bed Mobility NT Functional Transfers Sit to Stand: Stand by assistance Toilet Transfers: Stand by assist, Grab bars, Adaptive equipment Tub Transfers: (Declined.) Home Living Type of Home: Apartment Home Layout: One level, Stairs to enter with rails(Full flight of steps to access 2nd floor apt. ) Bathroom Shower/Tub: Tub/shower unit Bathroom Toilet: Standard Bathroom Accessibility: Accessible via walker Home Equipment: Cane Prior Level of Function Level of Boutte: Needs assistance with ADLs, Needs assistance with functional transfers, Needs assistance with homemaking Lives With: Significant other Receives Help From: Family ADL Assistance: Needs assistance Dressing: Minimal Homemaking Assistance: Needs assistance Homemaking Assistance Comments: Total Vocational: On disability Comments: Mod indep with cane for short distances. SO assists with bed mobility and LB dressing. Patient reports to perform own bathing and toileting, "as best I can". Past Medical History: Diagnosis Date Anxiety Arthritis Asthma COPD (chronic obstructive pulmonary disease) (HCC) Diabetes (HCC) Hypertension Past Surgical History: Procedure Laterality Date APPENDECTOMY FOOT SURGERY Left MANDIBLE FRACTURE SURGERY THORACIC DUCT LIGATION 01/15/2017 OCCUPATIONAL THERAPY TREATMENT NOTE Total Treatment Time (Total Session Time): 33 Minutes Timed Code Treatment Minutes: 12 Minutes Cognitive Skills Development Skilled Intervention: Followed all commands. Self-Care / Home Management ADL/IADL Skilled Intervention: LB dressing: SBA for underwear and short, given extra time and cues for safety; dependent for socks and plans to have SO continue at home vs AE training. SBA pericare at toilet, seated. Therapeutic Activities Bed Mobility Skilled Intervention: NT; up in chair and remained in chair for LE elevation.Spouse was assisting with bed mobility at home, prior to sx. Functional Transfers Skilled Intervention: Patient moved sit to stand at WW several times during LB dressing, given extra time and cues for hand placement. SBA toilet transfer with use of rails, extra time. Request for toilet riser for home use obtained from [facility] for in-room delivery. Patient planning to sponge bathe initially and declined tub tranfer practice. Patient was edcuated on safe tub transfer technique using diagrahm and explanation, with use of shower chair. Patient and SO voiced good understanding; shower chair obtained through E as well. Patient stood at walker for several minutes with good static standing with support of WW. Ambulated in room with WW and close SBA, given extra time and intermittent standing rest breaks. For complete objective data, detailed plan of care and patient education refer to: OT EVALUATION flow sheet, OT TREATMENT flow sheet, patient Plan of Care, Plan of Care progress note, and Patient Education. This note stands as the current Discharge Summary upon patient discharge from the hospital or completion of Occupational Therapy Plan of Care. Physical Therapy PHYSICAL THERAPY EVALUATION NOTE Skilled Therapy Needs After Discharge Anticipate Resolution of Current Assessment Limitations Including: Pain Are Skilled Therapy Services Needed After Discharge: Yes Intensity of Skilled Therapy: 2-3 days per week Anticipated Duration of Skilled Therapy: Duration 10 - 30 days DME Recommendation: Wheeled walker DME Rationale: Patient's condition creates an increased risk of safety hazard without recommended equipment Rehab Potential: Good Outcomes Measures Prior Function - Basic Mobility Raw Score: 24 Points Prior Function - Basic Mobility % Impaired: 0% functionally impaired AM-PAC - Basic Mobility Raw Score: 17 Points AM-PAC - Basic Mobility % Impaired: 43.83% functionally impaired Physical Therapy Assessment History: 01/08/20 R TKA, WBAT R LE The following factors influence the patient's participation in the PT plan of care: Personal Factors: Limited Compliance, Limited Baseline Mobility, Apprehensive Toward Mobility, Body Habitus Environmental Factors: Steps to enter home The following co-morbidities (from this admission or prior) influence the patient's participation in this plan of care: Anxiety, arthritis, asthma, COPD, DM, HTN Number of History elements affecting this patient's PT plan of care: 3 or more Examination of Body Systems: The patient presents with: Musculoskeletal impairments: Strength, ROM, Pain, Functional Endurance Cardiopulmonary Impairments: Activity Tolerance. These impairments result in limitations of Gait, Functional Transfers, Stair-Climbing, Safety, Activity Tolerance. These impairments result in restrictions of Household mobility, Community mobility, Leisure activities. Number of Body Systems elements affecting this patient's PT plan of care: 1 to 2. Clinical Presentation: The patient's clinical presentation for this PT evaluation is evolving as evidenced by current PT documentation. Activity Tolerance Activity Tolerance: Tolerates 30 min acitivty with multiple rests Therapy Precautions Orthotic Devices: No Weight Bearing Status: X RLE: Wt bearing as tolerated General Rehab Precautions: Fall risk(Assist x1 with 2WW) Balance Sitting Balance - Static: Supports self independantly with both upper extremities Standing Balance - Static: Supports self with more than 50% effort using upper extremity, requires therapist assisstance Bed Mobility Supine to Sit: Stand by assistance Sit to Supine: Stand by assistance Skilled Intervention: Significantly increased time to complete d/t high pain levels, weakness, and SOB. Transfers Sit to Stand: Min Bridge Construction Inspector: Wheeled walker Skilled Intervention: Vc for hand placement with pt taking few minutes to rest before standing d/t poor activity tolerance. Gait/Locomotion Gait Assistance: Contact guard Assistive Device: Wheeled walker Distance: 80 Feet Skilled Intervention: Pt ambulated with step-to gait pattern with significantly increased time to complete and limited carryover of sequencing of LEs and AD with constant vc. Pt with poor activity tolerance and refusing to attempt stairs this session d/t fatigue. Exercise Ankle Pumps: x20 reps Quad Sets: x20 reps Heelslides: x20 reps Glute Sets: x20 reps Seated Exercises: x20 reps LAQs Short Arc Quad: x20 reps Skilled Intervention: Pt instructed on sequencing of exercises with tactile cues for proper positioning of R LE. R knee AROM measured at 10-70 degrees. Home Living Type of Home: Apartment Home Layout: One level, Stairs to enter with rails(20 PETER with R HR) Home Equipment: Cane Prior Level of Function Level of Boutte: Needs assistance with ADLs, Needs assistance with homemaking Lives With: Significant other Receives Help From: Family Comments: Pt ambulates short distances with cane at PLOF. His S/O reports he hardly walks at all typically. She takes care of all homemaking and assists him with bathing/dressing. Past Medical History: Diagnosis Date Anxiety Arthritis Asthma COPD (chronic obstructive pulmonary disease) (HCC) Diabetes (HCC) Hypertension Past Surgical History: Procedure Laterality Date APPENDECTOMY FOOT SURGERY Left MANDIBLE FRACTURE SURGERY THORACIC DUCT LIGATION 01/15/2017 For complete objective data, detailed plan of care and patient education refer to: PT EVALUATION flow sheet, PT TREATMENT flow sheet, patient Plan of Care, Plan of Care progress note, and Patient Education. This note stands as the current Discharge Summary upon patient discharge from the hospital or completion of Physical Therapy Plan of Care. Associated Order(s): IP CONSULT TO CARE MANAGEMENT SIMPLE DISCHARGE Date: 01/08/2020 Time: 1:38 PM Patient Name: Carmen Gilman Date of : 1965 Sex: Male Latonia, Otc Clerk, met with the patient today after his right knee replacement surgery and confirmed the plan that was set during [place]. The patient will return home with services from [facility]. Secure note sent to Sho Malagon RN Home Care Liason, and notify order sent. Case closed at discharge. Discharge Planning Living Arrangements: Spouse/significant other Support Systems: Spouse/significant other Assistance Needed: yes Type of Residence: Private residence Prior to Admission Home Care Services: No Patient expects to be discharged to:: home Current Home Equipment: Cane Anticipated HME: Wheeled walker Anticipated Home Care Needs: Home health care Anticipated Facility Type: Home care [facility] [place] Assessment: Met with the patient during [place] on 01/03/2020. The patient is scheduled to have right knee replacement surgery with Dr. Dukes on 01/08/2020. He lives with Noelle, his significant other in a second story apartment with 20 steps and a handrail on the left to enter. Noelle will assist the patient after surgery. The bedroom and bathroom are on the same floor. The laundry is in the building complex. The bathroom has a tub-shower, without grab bars or a seat. The commode is a lower height. The patient had a lot of difficulty with mobility and may need a senior living facility at discharge. The patient wants to have [facility] at discharge, a referral will be made. The patient will need a wheeled walker after surgery and would like to have the equipment from [facility] Will fax the request and face sheet to [facility]. Verified patient s address and phone number. Discharge Planning Living Arrangements: Spouse/significant other Support Systems: Spouse/significant other Type of Residence: Private residence Prior to Admission Home Care Services: No Patient expects to be discharged to:: home Current Home Equipment: Cane Anticipated HME: Wheeled walker Anticipated Home Care Needs: Home health care Anticipated Facility Type: Home care [facility] documented in this encounter Associated Order(s): IP CONSULT TO CARE MANAGEMENT SIMPLE DISCHARGE Date: 07/09/2020 Time: 3:46 PM Patient Name: Carmen Gilman Date of : 1965 Sex: Male Assessment completed with patient. He was educated to director of social work role. Patient was independent prior. He did not have any home health care. He does live with his spouse. Patient has worked with PT and OT. Patient educated to home health care. He is interested. Patient has two flights of stairs to enter his apartment. He has a hard time with his stairs prior to admission. Discharge Planning Living Arrangements: Spouse/significant other Support Systems: Family members Type of Residence: (Second floor apartment) Prior to Admission Home Care Services: No Patient expects to be discharged to:: (home) Anticipated HME: Wheeled walker Anticipated Home Care Needs: Home health care Physical Therapy PHYSICAL THERAPY EVALUATION NOTE Dx: resp failure Skilled Therapy Needs After Discharge Are Skilled Therapy Services Needed After Discharge: Yes Intensity of Skilled Therapy: 2-3 days per week Anticipated Duration of Skilled Therapy: Duration 10 - 30 days DME Recommendation: Wheeled walker, None(WW progressed to none) DME Rationale: Patient's condition prevents him/her from accomplishing ADL without recommended equipment Rehab Potential: Good Outcomes Measures Prior Function - Basic Mobility Raw Score: 24 Points Prior Function - Basic Mobility % Impaired: 0% functionally impaired AM-PAC - Basic Mobility Raw Score: 17 Points AM-PAC - Basic Mobility % Impaired: 43.83% functionally impaired Physical Therapy Assessment History: The following factors influence the patient's participation in the PT plan of care: Personal Factors: Limited Baseline Mobility Environmental Factors: Steps to enter home The following co-morbidities (from this admission or prior) influence the patient's participation in this plan of care: in note Number of History elements affecting this patient's PT plan of care: 3 or more Examination of Body Systems: The patient presents with: Musculoskeletal impairments: Functional Endurance Neurologic Impairments: Balance Cardiopulmonary Impairments: Activity Tolerance. These impairments result in limitations of Gait, Functional Transfers, Stair-Climbing, Safety, Activity Tolerance. These impairments result in restrictions of Household mobility, Community mobility. Number of Body Systems elements affecting this patient's PT plan of care: 3 or more. Clinical Presentation: The patient's clinical presentation for this PT evaluation is evolving as evidenced by current PT documentation. Activity Tolerance Activity Tolerance: Tolerates 30 min acitivty with multiple rests Therapy Precautions Weight Bearing Status: WFL General Rehab Precautions: Fall risk Balance Sitting Balance - Static: Sits without support for more than 30 seconds Standing Balance - Static: (CGA) Bed Mobility Rolling: (pt in chair pre-PT) Sit to Supine: Stand by assistance Transfers Sit to Stand: Contact guard Bridge Construction Inspector: Wheeled walker Gait/Locomotion Gait Assistance: Contact guard Assistive Device: Wheeled walker Distance: 75 Feet Pattern: Step through, R decreased step length, L decreased step length(unstable, sways side to side) Weight Bearing Status: Able to maintain Home Living Type of Home: Apartment Home Layout: Stairs to enter with rails(1 level apt on 2nd floor, 2 flights of stairs to enter) Bathroom Shower/Tub: Tub/shower unit Bathroom Toilet: Raised Home Equipment: Wheeled Walker Prior Level of Function Level of Boutte: Needs assistance with ADLs Lives With: Spouse Receives Help From: Family ADL Assistance: Needs assistance Bathing: Minimal Dressing: Minimal Grooming: (Independent) Feeding: (Independent) Homemaking Assistance: (Spouse completed cooking and laundry tasks.) Vocational: On disability Comments: no AD use at home Past Medical History: Diagnosis Date Anxiety Arthritis Asthma COPD (chronic obstructive pulmonary disease) (HCC) Diabetes (HCC) Hypertension Opioid dependence (HCC) Past Surgical History: Procedure Laterality Date APPENDECTOMY FOOT SURGERY Left MANDIBLE FRACTURE SURGERY ORTHOPEDIC SURGERY Right knee THORACIC DUCT LIGATION For complete objective data, detailed plan of care and patient education refer to: PT EVALUATION flow sheet, PT TREATMENT flow sheet, patient Plan of Care, Plan of Care progress note, and Patient Education. This note stands as the current Discharge Summary upon patient discharge from the hospital or completion of Physical Therapy Plan of Care. Occupational Therapy OCCUPATIONAL THERAPY EVALUATION NOTE Skilled Therapy Needs After Discharge Are Skilled Therapy Services Needed After Discharge: No DME Recommendation: Tub seat DME Rationale: Patient's condition creates an increased risk of safety hazard without recommended equipment Rehab Potential: Good Outcomes Measures Prior Function Daily Activity: Raw Score: 22 Prior Function Daily Activity % Impaired: 25.80% functionally impaired AM-PAC Daily Activity: Raw Score: 18 AM-PAC Daily Activity % Impaired: 46.65% functionally impaired Occupational Therapy Assessment The patient's current functional participation deficits are grooming, UE dressing, LE dressing, bathing, toileting, functional mobility. This reduced independence will limit their life roles of premorbid level individual. The patient's co morbidities do affect patient performance in the above activities and roles. The performance deficits are a result of musculoskeletal impairment(s) in generalized debility including strength, range of motion, balance, acitvity tolerance, pain, orientation, and motivation, knowledge deficit. The patient's home setup is a hand flesher for return to prior level of function. The patient's education level is a hand flesher to return to prior level of function. During the assessment, minimal to moderate modification of task was required and multiple treatment options were identified in the plan of care. This consultation required extensive review of the medical and therapy history. Medical Diagnosis: COPD Exacerbation; Respiratory Failure; Atrial Fibrillation with RVR; CHF; NSTEMI; Peripheral Edema; Anemia/Thrombocytopenia. UE Function: R UE AROM to WNL and strength at elbow is grossly 4 to 4+/5 with gross grasp about 4+/5 - shoulder strength not tested secondary to old blood noted at PICC line site in arm; L UE AROM limited at shoulder to about 40 degrees of scaption with pt voicing premorbid shoulder dislocation - AROM elbow flexion to WFL with effort - elbow strength about 4-/5 with gross grasp about 5/5; pt was able to oppose thumb to digits using bilateral hands. Activity Tolerance Activity Tolerance: Tolerates 10 - 20 min activity with multiple rests Therapy Precautions General Rehab Precautions: Fall risk(Up to chair with assist x1.) Activity as Tolerated Cognition Overall Cognitive Status: Impaired Arousal/Alertness: Appropriate responses to stimuli Orientation Level: Oriented to place, Oriented to person, Disoriented to time(Knew birthdate; not oriented to current year, but knew month) Attention: Attends to quiet environment Hearing Status: WFL Social Interaction: WFL ADL/IADL Grooming : Min(Min A to comb hair; washed face; chair level.) LE Dressing: Dependent(Unable to don/doff socks at bed level; has assist at home.) Bed Mobility Supine to Sit: Stand by assistance(HOB elevated.) Functional Transfers Sit to Stand: Min(No device.) Bed to Chair Transfers: Min(Ambulated from EOB to chair; no device.) Skilled Intervention: Min A for stand to sit transition at chair; pt slightly unsteady when ambulating from EOB to chair w/min A; min A for safety with static standing without UE support. Home Living Type of Home: Apartment Home Layout: One level, Stairs to enter with rails Bathroom Shower/Tub: Tub/shower unit Bathroom Toilet: Raised Prior Level of Function Level of Boutte: Needs assistance with ADLs Lives With: Spouse Receives Help From: Family ADL Assistance: Needs assistance Bathing: Minimal Dressing: Minimal Grooming: (Independent) Feeding: (Independent) Homemaking Assistance: (Spouse completed cooking and laundry tasks.) Vocational: On disability Comments: Independent w/ambulation; no device. Past Medical History: Diagnosis Date Anxiety Arthritis Asthma COPD (chronic obstructive pulmonary disease) (HCC) Diabetes (HCC) Hypertension Opioid dependence (HCC) Past Surgical History: Procedure Laterality Date APPENDECTOMY FOOT SURGERY Left MANDIBLE FRACTURE SURGERY ORTHOPEDIC SURGERY Right knee THORACIC DUCT LIGATION For complete objective data, detailed plan of care and patient education refer to: OT EVALUATION flow sheet, OT TREATMENT flow sheet, patient Plan of Care, Plan of Care progress note, and Patient Education. This note stands as the current Discharge Summary upon patient discharge from the hospital or completion of Occupational Therapy Plan of Care. Associated Order(s): IP CONSULT TO DIETITIAN Nutrition Therapy Note Consult received for TF recommendations only. Pt now extubated and on CLD. TF recs no longer indicated. Will see pt per regular nutrition policy protocol. Associated Order(s): IP CONSULT TO NEPHROLOGY NEPHROLOGY CONSULTATION NOTE [facility] Patient Name: Carmen Gilman MR #: [id number] : 1965 Requesting physician: interventist Reason for consult: edema Impression: 1. Edema 2. resp failure 3. A. Fib with rvr 4. HTN 5. DM Plan: Cause of the edema possible due pulmonary HTN. 2D echo show enlarge right ventricle but normal systolic function. CT of pulmonary artery neg for PE. UA is negative for any proteinuria. However spot urine protein at 629. Will need to get a spot urine creatinine to compare. Will also check immunofixations to r/o any paraprotein especially if UA is neg for protein. Does have good urine output and will increase lasix to q 8 hours. No need for HD. History of Presenting Illness: Carmen Gilman is a 54 y.o. male on hospital day 0 with a history of HTN, DM, and COPD presented to hospital complaining of increase SOB. Was in resp distress and had to be intubated. Noted increase edema to lower legs. According to family, this have been going on for months. Denies any NSAIDS use. Lab work as noted: Component Latest Ref Rng & Units 07/07/2020 07/08/2020 BUN 8 - 25 mg/dL 16 20 CREATININE 0.50 - 1.30 mg/dL 1.05 0.96 History: Past Medical History: Diagnosis Date Anxiety Arthritis Asthma COPD (chronic obstructive pulmonary disease) (HCC) Diabetes (HCC) Hypertension Opioid dependence (HCC) Past Surgical History: Procedure Laterality Date APPENDECTOMY FOOT SURGERY Left MANDIBLE FRACTURE SURGERY ORTHOPEDIC SURGERY Right knee THORACIC DUCT LIGATION Family History: Family History Problem Relation Age of Onset Heart disease Mother Diabetes Mother [x] Unable to obtain due to ventilated and/or neurologic status Social History Socioeconomic History Marital status: Single Spouse name: Not on file Number of children: Not on file Years of education: Not on file Highest education level: Not on file Occupational History Not on file Social Needs Financial resource strain: Not on file Food insecurity Worry: Not on file Inability: Not on file Transportation needs Medical: Not on file Non-medical: Not on file Tobacco Use Smoking status: Former Smoker Types: Cigarettes Smokeless tobacco: Current User Types: Chew Substance and Sexual Activity Alcohol use: Not Currently Frequency: Never Drug use: Yes Types: Marijuana Sexual activity: Not on file Lifestyle Physical activity Days per week: Not on file Minutes per session: Not on file Stress: Not on file Relationships Social connections Talks on phone: Not on file Gets together: Not on file Attends lutheran service: Not on file Active member of club or organization: Not on file Attends meetings of clubs or organizations: Not on file Relationship status: Not on file Other Topics Concern Not on file Social History Narrative Not on file [x] Unable to obtain due to ventilated and/or neurologic status Home Medications: Outpatient Medications as of 07/08/2020 Medication Sig albuterol (PROVENTIL) 2.5 mg /3 mL (0.083 %) nebulizer solution USE ONE AMPULE (3ML) BY NEBULIZER EVERY 6 HOURS NEEDED albuterol 90 mcg/actuation inhaler INHALE 1 PUFF BY MOUTH EVERY 6 HOURS NEEDED FOR wheezing Bevespi Aerosphere 9-4.8 mcg HFAA Inhale 2 puffs 2 (two) times a day . buprenorphine HCL (SUBUTEX) 8 mg SL Tablet TAKE 2 1/4 TABLETS UNDER TONGUE EVERY DAY gabapentin (NEURONTIN) 800 MG tablet Take 800 mg by mouth 3 (three) times a day . lisinopriL (PRINIVIL,ZESTRIL) 40 MG tablet Take 40 mg by mouth daily . Current Hospital Medications: Scheduled Meds: aspirin 81 mg Oral Daily atorvastatin 40 mg Oral Nightly budesonide 0.5 mg Nebulization BID chlorhexidine 15 mL Swab BID famotidine 20 mg Oral Q12H CASSIUS furosemide 40 mg Intravenous Q12H CASSIUS lispro insulin 0-15 Units Subcutaneous at bedtime insulin lispro 0-30 Units Subcutaneous TID AC ipratropium-albuteroL 3 mL Inhalation Q4H CASSIUS methylPREDNISolone sodium succinate 40 mg Intravenous Q8H CASSIUS Followed by [START ON 07/09/2020] predniSONE 40 mg Oral Daily senna-docusate 1 tablet Oral BID sodium chloride (PF) 10 mL Intracatheter Q8H CASSIUS sodium chloride (PF) 5 mL Intravenous Q8H CASSIUS Continuous Infusions: dexmedetomidine (PRECEDEX) infusion 0.8 mcg/kg/hr (07/08/20 1300) diltiazem (CARDIZEM) infusion Stopped (07/08/20 0753) heparin infusion (weight based dosing) 12 Units/kg/hr (07/08/20 1300) heparin norepinephrine (LEVOPHED) infusion Stopped (07/08/20 1232) propofol 20 mcg/kg/min (07/08/20 1300) sodium chloride 0.9 % PRN Meds:.acetaminophen OR acetaminophen, albuterol, alteplase, aluminum-magnesium hydroxide-simethicone, bisacodyL, fentaNYL (SUBLIMAZE) injection, heparin, lidocaine 1%, magnesium hydroxide, midazolam, midazolam, nalOXone AND Notify physician AND naloxone, ondansetron, perflutren lipid microspheres, rocuronium, sodium chloride (PF), Saline lock IV AND sodium chloride (PF) AND sodium chloride (PF) AND sodium chloride 0.9 %, traZODone dexmedetomidine (PRECEDEX) infusion 0.8 mcg/kg/hr (07/08/20 1300) diltiazem (CARDIZEM) infusion Stopped (07/08/20 0753) heparin infusion (weight based dosing) 12 Units/kg/hr (07/08/20 1300) heparin norepinephrine (LEVOPHED) infusion Stopped (07/08/20 1232) propofol 20 mcg/kg/min (07/08/20 1300) sodium chloride 0.9 % Allergies: I have reviewed the patient's allergies. Patient has no known allergies. Review of Systems: [] CV, Resp, GI, Neuro, and all other systems reviewed and negative other than listed in HPI. [x] Unable to obtain due to intubation and/or neurologic status. Objective Findings: Vitals:BP (!) 109/59 Pulse (!) 51 Temp 97.5 F (36.4 C) (Axillary) Resp 15 Ht 6' Wt 135.9 kg (299 lb 9.7 oz) SpO2 100% BMI 40.63 kg/m Intake/Output last 3 shifts: Intake/Output Summary (Last 24 hours) at 07/08/2020 1419 Last data filed at 07/08/2020 1300 Gross per 24 hour Intake 1365.09 ml Output 3400 ml Net -2034.91 ml I/O last 3 completed shifts: In: 692.5 [I.V.:592.5; NG/GT:100] Out: 1250 [Urine:1100; Emesis/NG output:150] Physical Examination: General: Age appropriate, NAD. HEENT: Normocephalic, no scleral icterus. Neck: No JVD. Heart: Regular, no murmur, no rub/gallop. No RV heave. Lungs: Clear to ascultation, no rales/wheezing/rhonchi. Good chest wall excursion. Abdomen: Soft, nontender, no supra-public fullness or tenderness. Extremities: No clubbing/cyanosis, +3 edema. Results/Medications Reviewed: 07/08/20 2:19 PM: Laboratory, Microbiology, Pathology, Radiology, Cardiology, Medications and Transcriptions Laboratory: Results from last 7 days Lab Units 07/08/20 0931 07/08/20 0230 07/08/20 0156 07/07/20 2243 07/07/20 2243 WBC K/mcL 8.61 -- 5.04 -- 11.69* HGB g/dL 11.8* -- 10.6* -- 12.0* HEMOGLOBIN BG g/dL -- 10.4* -- < > -- HEMATOCRIT, CALCULATED % -- 32.0* -- < > -- HCT % 38.2* -- 35.2* -- 39.7* PLT K/mcL 200 -- 126* -- 237 < > = values in this interval not displayed. Results from last 7 days Lab Units 07/08/20 0616 07/08/20 0156 07/07/20 2243 SODIUM mmol/L 137 -- 136 POTASSIUM mmol/L 5.1 -- 4.2 CHLORIDE mmol/L 105 -- 104 BICARB mmol/L 26 -- 21 BUN mg/dL 20 -- 16 CREATININE mg/dL 0.96 -- 1.05 EGFR mL/min/1.73 m2 90 -- 41* GLUCOSE mg/dL 147* -- 188* CALCIUM mg/dL 8.1* -- -- MAGNESIUM mg/dL -- 2.0 -- Urinalysis Results from last 7 days Lab Units 07/08/20 1100 07/07/20 2334 COLOR, UR Yellow Yellow CLARITY, UR Clear Clear SPEC GRAV 1.035* 1.016 PH, UR 5.0 6.5 GLUCOSE, UR mg/dL Negative 50 * KETONES, UR mg/dL Negative Negative BILIRUBIN, UR Negative Negative UROBILINOGEN, UR mg/dL <2.0 <2.0 BLOOD, UR Moderate* Moderate* NITRITE, UR Negative Negative LEUK VALERY, UR Negative Negative MUCUS, UR /lpf Rare Rare WBC, UR /hpf 5 7* BACTERIA, UR /hpf None Seen Rare* HYALINE CASTS /lpf -- 0-2 Comments: Thank you for allowing us to participate in the care of this patient. We will continue to follow. Please call if questions or concerns arise. CRITICAL CARE CONSULT 07/08/2020 Patient: Carmen Gilman Date of : 1965 Site: [facility] Referring Provider: Refer to consult order in electronic medical record Provider: Pio Sequeira MD ASSESSMENT/PLAN: Carmen Gilman 54 y.o. male with history of possible COPD, HTN, prior heroin abuse previously on Suboxone, current marijuana abuse, and knee replacement who presents to ED with SOB. EMS arrives to find patient with SpO2 of 76%. NRB applied, nebulizer and 125mg SoluMedrol given. Decision made to intubate in ED due to retractions noted. Patent admitted for COPD exacerbation, new onset atrial fibrillation, and decompensated CHF. Acute Hypoxemic Hypercarbic Respiratory Failure - somewhat unclear etiology - CXR not impressive for COPD/emphysema or overt pulmonary edema. - CTA is a poor study, but does not show a large central PE or pneumonia - agree with diuresis given peripheral edema - ?opiate overdose - vent bundle - SAT/SBT, hopeful extubation Atrial Fibrillation with RVR, possible CHF, type II NSTEMI - Cardiology help appreciated - TTE largely unremarkable. Metabolic Encephalopathy - ?overdose - seems improved, transition to precedex to facilitate extubation. Peripheral Edema - severe, does not appear to be severely malnourished - unclear if he has protein wasting - nephrotic syndrome - appreciate Nephrology help 40 minutes of critical care time provided thus far today not including procedures. OBJECTIVE: Physical Examination: BP (!) 94/56 Pulse (!) 58 Temp 97.7 F (36.5 C) (Axillary) Resp (!) 19 Ht 6' Wt 135.9 kg (299 lb 9.7 oz) SpO2 98% BMI 40.63 kg/m Temp: [96.8 F (36 C)-97.7 F (36.5 C)] 97.7 F (36.5 C) Heart Rate: [56-175] 58 Resp: [15-40] 19 BP: (65-195)/(42-105) 94/56 FiO2 (%): 40 SpO2 Readings from Last 1 Encounters: 07/08/20 98% Intake/Output Summary (Last 24 hours) at 07/08/2020 1237 Last data filed at 07/08/2020 1100 Gross per 24 hour Intake 1216.84 ml Output 2250 ml Net -1033.16 ml Vital Signs Reviewed. Gen: In no apparent distress, Intubated and sedated HEENT: ETT and OG/NG tube in good position Head: Normocephalic, no lesions, without obvious abnormality. Pharynx: Dental Hygiene adequate. Normal buccal mucosa. Normal pharynx. Neck: nontender, full range of motion, no mass, no focal lymphadenopathy Cardio: regular rate and rhythm, no murmur, brisk capillary refill Resp: distant breath sounds bilaterally, no wheezes or crackles Abd: soft, nontender, nondistended, no hepatosplenomegaly, no mass, normal bowel sounds MSK: Moves all four extremities spontaneously. 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 male with history of presumed COPD, HTN, prior heroin abuse previously on Suboxone, current marijuana abuse, and knee replacement who presents to ED with SOB. EMS arrives to find patient with SpO2 of 76%. NRB applied, nebulizer and 125mg SoluMedrol given. Decision made to intubate in ED due to retractions noted. Patent admitted for COPD exacerbation, new onset atrial fibrillation, and decompensated CHF. Respiratory: Acute hypoxemic hypercarbic respiratory failure Possible COPD exacerbation Acute pulmonary edema - underlying COPD but no PFTs or chest imaging on file - CXR with pulm venous congestion - intubated in ED - Vent bundle - Daily SAT/SBT starting tomorrow - aggressive diuresis - agree with azithromycin and IV steroids for acute COPD exac - continue duonebs and ICS - send sputum sample - need to rule out acute PE given elevated D-dimer and presentation, CT PE today Cardiovascular: Presumed decompensated CHF - BNP normal despite >4+ pitting edema - no prior cardiac workup - TTE today - CT PE study today D-dimer 4.94 - patient has diuresed 3L since admission, continue aggressive diuresis Shock - remains on low dose Levophed - unclear etiology, possibly cardiogenic versus septic but without leukocytosis and fever this is less likely - wean pressors as able - PICC line today. Will consider arterial line later today if remains on pressors Acute onset of Atrial fibrillation - no history of A-fib - converted to Sinus todd with Cardizem gtt which is now off - on Heparin gtt - TTE pending - likely related to hypoxic state - no need for further rate control as patient is bradycardic, sinus NSTEMI - likely type II secondary to hypoxic state - troponin now 152 from 146. Continue to trend - EKG without acute ST changes - TTE pending - on Heparin gtt for at least 48 hours - will add ASA/Lipitor - check lipid panel Neuro/Muscular: Acute metabolic encephalopathy - patient mentating upon presentation - sedated with diprivan, sits up in bed on max diprivan - prn fentanyl and versed - Daily SAT - PROM while in bed Renal: - no acute issues - strict monitoring of UOP/BUN/Cr - consult nephrology for significant edema despite normal TTE and BNP, may need urine studies GI/Nutrition: - OG to suction at this tie - will consider initiation of TF if unable to liberate from the vent in next 24- 48 hours Endocrine: - no issues - check TSH - goal glucose <180, monitor or hyperglycemia while on steroids Heme/Onc: Anemia Thrombocytopenia - CBC upon arrival with slight leukocytosis but otherwise normal, repeat CBC now with anemia and thrombocytopenia. Will redraw and assess. If platelet count did drop by >50% will need to consider HIT - Check INR now - no signs of active bleeding ID: Leukocytosis - blood, urine, and sputum cultures pending - repeat CBC with normal WBC - on azithro for copd exac - low threshold for additional antibiotics Prophylaxis: SCDs / Heparin gtt / Pepcid Other: SUBJECTIVE: Chief Complaint/Reason for Visit: shortness of breath History of Present Illness: Carmen Gilman is a 54 y.o. male presenting from home with complaint of shortness of breath. History obtained from EMR as patient is intubated and sedated and there is no family present. Patient called EMS due to severe shortness of breath. EMS arrives to find patient in significant distress with SpO2 76%. Placed patient on NRB, gave a nebulized treatment and 125mg of SoluMedrol. Patient arrived to ED in significant distress with retractions noted. Decision made to intubate due to impending respiratory failure with concern for airway protection. CXR concerning for pulmonary edema and ABGs with hypercarbic. LA marginally elevated. Troponin elevated but BNP normal. Patient given 40mg IV Lasix with immediate diuresis noted. Hypotension noted and patient started on Levophed. Atrial fibrillation noted and patient started on Cardizem gtt now with conversion to sinus bradycardia. Presumed COPD exacerbation given significant wheezing and patient started on steroids and breathing treatments. Patient with no prior chest imaging nor PFTs. Appears to be on Bevespi at home. Cannot find in EMR where patient has seen a Machine Gunner. Additional history of HTN, prior heroin abuse previously on Suboxone, current marijuana abuse, and knee replacement, and ankle surgery. Pending Lab and Radiology Results Order Current Status Blood Culture Aerobic/Anaerobic In process Blood Culture Aerobic/Anaerobic In process Echocardiogram complete w contrast In process Hemoglobin A1c In process Blood Culture Aerobic/Anaerobic Preliminary result Blood Culture Aerobic/Anaerobic Preliminary result Interpretation of Testing: I personally reviewed the Chest X-ray and agree with the interpretation(s) with the following comments. No hyperinflation noted. Pulm venous congestion noted. Review of Systems: Unable to perform ROS due to patient's intubation and sedation Past Medical History: Diagnosis Date Anxiety Arthritis Asthma COPD (chronic obstructive pulmonary disease) (HCC) Diabetes (HCC) Hypertension Opioid dependence (HCC) Past Surgical History: Procedure Laterality Date APPENDECTOMY FOOT SURGERY Left MANDIBLE FRACTURE SURGERY ORTHOPEDIC SURGERY Right knee THORACIC DUCT LIGATION Family History Problem Relation Age of Onset Heart disease Mother Diabetes Mother Social History Tobacco Use Smoking Status Former Smoker Types: Cigarettes Smokeless Tobacco Current User Types: Chew Additional History Comments: None Allergies: Patient has no known allergies. Current Facility-Administered Medications Medication Dose Route Frequency Provider Last Rate Last Admin acetaminophen (TYLENOL) tablet 650 mg 650 mg Oral Q4H PRN Venancio Quiros MD Or acetaminophen (TYLENOL) solution 650 mg 650 mg Tube Q4H PRN Venancio Quiros MD albuterol (PROVENTIL) 2.5 mg /3 mL (0.083 %) nebulizer solution 2.5 mg 2.5 mg Inhalation Q2H PRN Venancio Quiros MD alteplase (CATH KAYLEE) injection 2 mg 2 mg Other PRN Carina Green, RODRIGUE aluminum-magnesium hydroxide-simethicone (MAALOX PLUS) 200-200-20 mg/5 mL suspension 30 mL 30 mL Oral Q4H PRN Venancio Quiros MD [START ON 07/09/2020] azithromycin (ZITHROMAX) tablet 250 mg 250 mg Oral Daily Venancio Quiros MD bisacodyL (DULCOLAX) suppository 10 mg 10 mg Rectal Daily PRN Venancio Quiros MD budesonide (PULMICORT) nebulizer solution 0.5 mg 0.5 mg Nebulization BID Jessenia Ferrer, [facility],PharmD 0.5 mg at 07/08/20 0824 chlorhexidine (PERIDEX) 0.12 % solution 15 mL 15 mL Swab BID Venancio Quiros MD 15 mL at 07/08/20 0856 diltiazem (CARDIZEM) 125 mg in sodium chloride infusion 0-15 mg/hr Intravenous Continuous Venancio Quiros MD Stopped at 07/08/20 0753 famotidine (PEPCID) tablet 20 mg 20 mg Oral Q12H [facility] Venancio Quiros MD 20 mg at 07/08/20 0856 fentaNYL (SUBLIMAZE) injection 50-100 mcg 50-100 mcg Intravenous Q5 Min PRN Venancio Quiros MD 100 mcg at 07/08/20 0755 furosemide (LASIX) injection 40 mg 40 mg Intravenous Q12H CASSIUS Quiros MD 40 mg at 07/08/20 0519 heparin (porcine) 25,000 unit/250 mL in 0.45% NaCl infusion 0-70 Units/kg/hr (Order-Specific) Intravenous Continuous Venancio Quiros MD 9.4 mL/hr at 07/08/20 0832 8 Units/kg/hr at 07/08/20 0832 heparin bolus from bag 0-5,000 Units 0-5,000 Units Intravenous Continuous PRN Venancio Quiros MD 5,000 Units at 07/08/20 0205 insulin lispro (HumaLOG) injection 0-15 Units 0-15 Units Subcutaneous at bedtime Venancio Quiros MD insulin lispro (HumaLOG) injection 0-30 Units 0-30 Units Subcutaneous TID AC Venancio Quiros MD 4 Units at 07/08/20 0634 sodium chloride (PF) (NS) 0.9 % contrast line flush 10 mL 10 mL Intravenous Once in imaging Carina Green CNP And sodium chloride (PF) (NS) 0.9 % contrast line flush 80 mL 80 mL Intravenous Once in imaging Carina Green CNP And iopamidoL (ISOVUE-370) 76 % injection 75 mL 75 mL Intravenous Once in imaging Carina Green CNP ipratropium-albuteroL (DUO-NEB) 0.5-2.5 mg/3 ml nebulizer solution 3 mL 3 mL Inhalation Q4H [facility] Venancio Quiros MD 3 mL at 07/08/20 0816 lidocaine 10 mg/mL (1 %) injection 1 mL 1 mL Intradermal Once PRN Carina Green CNP magnesium hydroxide (MOM) 400 mg/5 mL suspension 2,400 mg 30 mL Oral Daily PRN Venancio Quiros MD methylPREDNISolone sod suc(PF) (SOLU-medrol) 40 mg 40 mg Intravenous Q8H [facility] Venancio Quiros MD 40 mg at 07/08/20 0514 Followed by [START ON 07/09/2020] predniSONE (DELTASONE) tablet 40 mg 40 mg Oral Daily Venancio Quiros MD midazolam (VERSED) injection 2 mg 2 mg Intravenous Q6H PRN Venancio Quiros MD 2 mg at 07/08/20 0421 midazolam (VERSED) injection 2 mg 2 mg Intravenous Q4H PRN Carina Green CNP midazolam (VERSED) injection 4 mg 4 mg Intravenous Once Carina Green CNP naloxone (NARCAN) injection 0.1 mg 0.1 mg Intravenous PRN Venancio Quiros MD And naloxone (NARCAN) injection 0.4 mg 0.4 mg Intravenous PRN Venancio Quiros MD norepinephrine (LEVOPHED) 4 mg in sodium chloride 0.9% (NS) 250 mL infusion 0- 100 mcg/min Intravenous Continuous Venancio Quiros MD 18.8 mL/hr at 07/08/20 0832 5 mcg/min at 07/08/20 0832 ondansetron (ZOFRAN) injection 4 mg 4 mg Intravenous Q6H PRN Venancio Quiros MD perflutren lipid microspheres (DEFINITY) 0.143 mg/mL solution 0-10 mL of mixture 0-10 mL of mixture Intravenous Once in imaging Venancio Quiros MD 1 mL of mixture at 07/08/20 0749 propofol (DIPRIVAN) infusion 0-50 mcg/kg/min Intravenous Continuous Venancio Quiros MD 35.4 mL/hr at 07/08/20 0832 50 mcg/kg/min at 07/08/20 0832 rocuronium (ZEMURON) injection Intravenous Code/Trauma/Sedation Med Kinsey Ignacio MD 50 mg at 07/08/20 0109 senna-docusate (SENNA-S) 8.6-50 mg per tablet 1 tablet 1 tablet Oral BID Venancio Quiros MD 1 tablet at 07/08/20 0856 sodium chloride (PF) (NS) flush 10 mL 10 mL Intracatheter Q8H CASSIUS Green CNP sodium chloride (PF) (NS) flush 10-20 mL 10-20 mL Intracatheter PRN Carina Green CNP sodium chloride (PF) (NS) flush 5 mL 5 mL Intravenous PRN Venancio Quiros MD And sodium chloride (PF) (NS) flush 5 mL 5 mL Intravenous Q8H CASSIUS Quiros MD 5 mL at 07/08/20 0517 And sodium chloride 0.9% (NS) 0-150 mL/hr Intravenous PRN Venancio Quiros MD traZODone (DESYREL) tablet 50 mg 50 mg Oral Nightly PRN Venancio Quiros MD I have reviewed prior to admission medication list. OBJECTIVE: Physical Examination: BP 105/64 Pulse 67 Temp 97.4 F (36.3 C) (Temporal) Resp (!) 22 Ht 6' Wt 135.9 kg (299 lb 9.7 oz) SpO2 99% BMI 40.63 kg/m Temp: [96.8 F (36 C)-97.4 F (36.3 C)] 97.4 F (36.3 C) Heart Rate: [67-175] 67 Resp: [15-40] 22 BP: (65-195)/(42-105) 105/64 FiO2 (%): 40 SpO2 Readings from Last 1 Encounters: 07/08/20 99% Intake/Output Summary (Last 24 hours) at 07/08/2020 0903 Last data filed at 07/08/2020 0832 Gross per 24 hour Intake 995.58 ml Output 2250 ml Net -1254.42 ml Vital Signs Reviewed. Gen: In no apparent distress, Intubated and sedated. Obese HEENT: ETT and OG/NG tube in good position Head: Normocephalic, no lesions, without obvious abnormality. Eye: Normal external eye, conjunctiva, lids cornea, JESSICA. Pharynx: Dental Hygiene adequate. Normal buccal mucosa. Normal pharynx. Neck: nontender, full range of motion, no mass, no focal lymphadenopathy Cardio: regular rate and rhythm, no murmur, brisk capillary refill, >4+ pitting edema noted to B/L LE Resp: clear to auscultation bilaterally, no wheezes or crackles, no tachypnea or accessory muscle use Abd: soft, nontender, nondistended, no hepatosplenomegaly, no mass, normal bowel sounds MSK: Moves all four extremities spontaneously. Neuro: Sedated Skin: no rashes, no jaundice Labs and Imaging: [x] Medications reviewed. [x] Labs reviewed. Pertinent findings noted: LA 1.6 [x] Radiology reviewed. Pertinent findings noted: see above [] Pathology reviewed. Pertinent findings noted: Family Update/ Code Status: Full Code Laboratory and Additional Data Reviewed: Reviewed 07/08/20 9:03 AM: Laboratory, Microbiology, Radiology, Cardiology, Medications and Transcriptions Associated attestation - Pio Sequeira MD - 07/08/2020 12:47 PM EST I have independently seen and examined the patient. I have reviewed the pertinent lab and diagnostic data (both new and old if applicable). I agree with the WHIT history, physical exam, and assessment and plan, with any modifications noted below. If present, please see my separate consult or progress note for additional details. Associated Order(s): IP CONSULT TO CARDIOLOGY General Cardiology Inpatient Consult Heart & Vascular [facility] 07/08/2020 Memo Bernstein MD [facility] Patient: Carmen Gilman Date of : 1965 (54 y.o.) Referring Provider: No ref. provider found PCP: Mari Lee MD Assessment/Plan: Acute congestive heart failure (HCC) Assessment & Plan I do not believe this was acute systolic or diastolic heart failure. Echo reviewed and noted. Atrial fibrillation with rapid ventricular response (HCC) Assessment & Plan Now converted, will check EKG. Continue IV heparin at this time. [id number] is 2, consideration for long-term oral anticoagulation. Acute on chronic respiratory failure with hypoxia and hypercapnia (HCC) Assessment & Plan Discussed with lithograph press operator tinware at bedside. CT PE study is being ordered. Reason for Consultation: chf History of Present Illness: Carmen Gilman is a 54 y.o. male This is a 54-year-old gentleman. He was seen in our offices in December of this year for preoperative evaluation prior to right total knee replacement. It was noted that time he has a history of asthma and COPD, diabetes and hypertension. EKG at that time showed normal sinus rhythm and was within normal limits. I do not see the patient has a history previously of any cardiac problems. He presented to the emergency room yesterday with acute respiratory distress. The squad was called to his home noted that he had a sat of 76%. In the emergency room he was intubated. Exam was notable for edema. D-dimer was moderately elevated, serial troponins were minimally elevated. NT proBNP level was 266. SARS-CoV-2 was negative or not detected. Chest x-ray did not show any obvious infiltrates. Echo today showed: Summary 1. Technically fair quality study. Definity contrast used for opacification of endocardial border. 2. Normal left ventricular size with hyperdynamic systolic function, LVEF by biplane measurement 75%. 3. Normal diastolic filling. 4. Enlarged right ventricle with grossly normal systolic function.. 5. Mild biatrial enlargement. 6. No hemodynamically valvular disease. Estimated RVSP 25 mmHg.. 7. Hypermobile interatrial septum with no evidence of intracardiac shunting by agitated saline or color Doppler. Past Medical History: Diagnosis Date Anxiety Arthritis Asthma COPD (chronic obstructive pulmonary disease) (HCC) Diabetes (HCC) Hypertension Opioid dependence (HCC) Past Surgical History: Procedure Laterality Date APPENDECTOMY FOOT SURGERY Left MANDIBLE FRACTURE SURGERY ORTHOPEDIC SURGERY Right knee THORACIC DUCT LIGATION Family History Problem Relation Age of Onset Heart disease Mother Diabetes Mother Social History Tobacco Use Smoking Status Former Smoker Types: Cigarettes Smokeless Tobacco Current User Types: Chew Allergies: Patient has no known allergies. Prior to Admission medications Not on File Current Facility-Administered Medications Medication Dose Route Frequency Provider Last Rate Last Admin acetaminophen (TYLENOL) tablet 650 mg 650 mg Oral Q4H PRN Venancio Quiros MD Or acetaminophen (TYLENOL) solution 650 mg 650 mg Tube Q4H PRN Venancio Quiros MD albuterol (PROVENTIL) 2.5 mg /3 mL (0.083 %) nebulizer solution 2.5 mg 2.5 mg Inhalation Q2H PRN Venancio Quiros MD alteplase (CATH KAYLEE) injection 2 mg 2 mg Other PRN Carina Green CNP aluminum-magnesium hydroxide-simethicone (MAALOX PLUS) 200-200-20 mg/5 mL suspension 30 mL 30 mL Oral Q4H PRN Venancio Quiros MD aspirin chewable tablet 81 mg 81 mg Oral Daily Carina Green CNP atorvastatin (LIPITOR) tablet 40 mg 40 mg Oral Nightly Carina Green CNP [START ON 07/09/2020] azithromycin (ZITHROMAX) tablet 250 mg 250 mg Oral Daily Venancio Quiros MD bisacodyL (DULCOLAX) suppository 10 mg 10 mg Rectal Daily PRN Venancio Quiros MD budesonide (PULMICORT) nebulizer solution 0.5 mg 0.5 mg Nebulization BID Jessenia Ferrer [facility],PharmD 0.5 mg at 07/08/20 0824 chlorhexidine (PERIDEX) 0.12 % solution 15 mL 15 mL Swab BID Venancio Quiros MD 15 mL at 07/08/20 0856 diltiazem (CARDIZEM) 125 mg in sodium chloride infusion 0-15 mg/hr Intravenous Continuous Venancio Quiros MD Stopped at 07/08/20 0753 famotidine (PEPCID) tablet 20 mg 20 mg Oral Q12H [facility] Venancio Quiros MD 20 mg at 07/08/20 0856 fentaNYL (SUBLIMAZE) injection 50-100 mcg 50-100 mcg Intravenous Q5 Min PRN Venancio Quiros MD 100 mcg at 07/08/20 0755 furosemide (LASIX) injection 40 mg 40 mg Intravenous Q12H [facility] Venancio Quiros MD 40 mg at 07/08/20 0519 heparin (porcine) 25,000 unit/250 mL in 0.45% NaCl infusion 0-70 Units/kg/hr (Order-Specific) Intravenous Continuous Venancio Quiros MD 9.4 mL/hr at 07/08/20 0916 8 Units/kg/hr at 07/08/20 0916 heparin bolus from bag 0-5,000 Units 0-5,000 Units Intravenous Continuous PRN Venancio Quiros MD 5,000 Units at 07/08/20 0205 insulin lispro (HumaLOG) injection 0-15 Units 0-15 Units Subcutaneous at bedtime Venancio Quiros MD insulin lispro (HumaLOG) injection 0-30 Units 0-30 Units Subcutaneous TID AC Venancio Quiros MD 4 Units at 07/08/20 0634 sodium chloride (PF) (NS) 0.9 % contrast line flush 10 mL 10 mL Intravenous Once in imaging Carina Green CNP And sodium chloride (PF) (NS) 0.9 % contrast line flush 80 mL 80 mL Intravenous Once in imaging Carina Green CNP And iopamidoL (ISOVUE-370) 76 % injection 75 mL 75 mL Intravenous Once in imaging Carina Green CNP ipratropium-albuteroL (DUO-NEB) 0.5-2.5 mg/3 ml nebulizer solution 3 mL 3 mL Inhalation Q4H CASSIUS Quiros MD 3 mL at 07/08/20 0816 lidocaine 10 mg/mL (1 %) injection 1 mL 1 mL Intradermal Once PRN Carina Green CNP magnesium hydroxide (MOM) 400 mg/5 mL suspension 2,400 mg 30 mL Oral Daily PRN Venancio Quiros MD methylPREDNISolone sod suc(PF) (SOLU-medrol) 40 mg 40 mg Intravenous Q8H [facility] Venancio Quiros MD 40 mg at 07/08/20 0514 Followed by [START ON 07/09/2020] predniSONE (DELTASONE) tablet 40 mg 40 mg Oral Daily Venancio Quiros MD midazolam (VERSED) injection 2 mg 2 mg Intravenous Q6H PRN Venancio Quiros MD 2 mg at 07/08/20 0421 midazolam (VERSED) injection 2 mg 2 mg Intravenous Q4H PRN Carina Green CNP naloxone (NARCAN) injection 0.1 mg 0.1 mg Intravenous PRN Venancio Quiros MD And naloxone (NARCAN) injection 0.4 mg 0.4 mg Intravenous PRN Venancio Quiros MD norepinephrine (LEVOPHED) 4 mg in sodium chloride 0.9% (NS) 250 mL infusion 0- 100 mcg/min Intravenous Continuous Venancio Quiros MD Stopped at 07/08/20 0908 ondansetron (ZOFRAN) injection 4 mg 4 mg Intravenous Q6H PRN Venancio Quiros MD perflutren lipid microspheres (DEFINITY) 0.143 mg/mL solution 0-10 mL of mixture 0-10 mL of mixture Intravenous Once in imaging Venancio Quiros MD 1 mL of mixture at 07/08/20 0749 propofol (DIPRIVAN) infusion 0-50 mcg/kg/min Intravenous Continuous Venancio Quiros MD 35.4 mL/hr at 07/08/20 0916 50 mcg/kg/min at 07/08/20 0916 rocuronium (ZEMURON) injection Intravenous Code/Trauma/Sedation Med [place] Hannah Ignacio MD 50 mg at 07/08/20 0109 senna-docusate (SENNA-S) 8.6-50 mg per tablet 1 tablet 1 tablet Oral BID Venancio Quiros MD 1 tablet at 07/08/20 0856 sodium chloride (PF) (NS) flush 10 mL 10 mL Intracatheter Q8H [facility] Carina Green CNP sodium chloride (PF) (NS) flush 10-20 mL 10-20 mL Intracatheter PRN Carina Green CNP sodium chloride (PF) (NS) flush 5 mL 5 mL Intravenous PRN Venancio Quiros MD And sodium chloride (PF) (NS) flush 5 mL 5 mL Intravenous Q8H CASSIUS Venancio Quiros MD 5 mL at 07/08/20 0517 And sodium chloride 0.9% (NS) 0-150 mL/hr Intravenous PRN Venancio Quiros MD traZODone (DESYREL) tablet 50 mg 50 mg Oral Nightly PRN Venancio Quiros MD Review of Systems: Review of Systems Unable to perform ROS: intubated Objective: Vital Signs: BP 102/60 (BP Location: Left arm, Patient Position: Lying) Pulse (!) 56 Temp 97.7 F (36.5 C) (Axillary) Resp (!) 26 Ht 6' Wt 135.9 kg (299 lb 9.7 oz) SpO2 99% BMI 40.63 kg/m Physical Examination: Physical Exam Constitutional: He appears well-developed and well-nourished. Eyes: No scleral icterus. Neck: No JVD present. Cardiovascular: Normal rate, regular rhythm and normal heart sounds. Pulmonary/Chest: Effort normal. Abdominal: Obese, soft Musculoskeletal: General: Edema present. Neurological: Intubated and sedated Skin: Appears to have some chronic skin changes possibly related to edema Vitals reviewed. EKG Interpretation: Nonspecific ST changesEKG July 07 showed atrial fib with rapid ventricular response, heart rate 150, Echocardiogram complete w contrast Final Result by Liz Raya MD (07/08/2020 0928) Lab Results Component Value Date WBC 8.61 07/08/2020 HGB 11.8 (L) 07/08/2020 HCT 38.2 (L) 07/08/2020 MCV 70.9 (L) 07/08/2020 PLT 200 07/08/2020 RBC 5.39 07/08/2020 Lab Results Component Value Date CREATININE 0.96 07/08/2020 BUN 20 07/08/2020 NA 137 07/08/2020 K 5.1 07/08/2020 CL 105 07/08/2020 BICARB 26 07/08/2020 Lab Results Component Value Date NA 137 07/08/2020 K 5.1 07/08/2020 CL 105 07/08/2020 Lab Results Component Value Date TROPONINI 152 (CH) 07/08/2020 No EKG results on file. Memo Bernstein documented in this encounter SIMPLE DISCHARGE Date: 12/04/2020 Time: 1:57 PM Patient Name: Carmen Gilman Date of : 1965 Sex: Male Patient approached the nurse's station reporting he wished to speak to the home health care social worker. Met with the patient bedside, he asks that this worker reach out to the apartment where he completed an application. VM left with apartment complex. Patient's phone charged for him. Discharge Planning Living Arrangements: Friends Support Systems: project manager entertainment and media/home health care social worker Assistance Needed: none Type of Residence: Homeless(living on friends couch [place]") Prior to Admission Home Care Services: No documented in this encounter Emi Vásquez RN - 01/08/2020 6:55 AM Emi Alfonso RN - 01/08/2020 6:41 AM Emi Alfonso RN - 01/08/2020 6:22 AM EDT Nursing Notes (unrecognized section and content) Dr Helton back into reevaluate pt RT in room doing breathing tx Rt knee edematous. Dr Helton into see pt. Informed lungs diminished with wheezing documented in this encounter Quick Note - Elodia Sparrow RN - 01/08/2020 4:10 PM EDTPlan of Care - Shira Armstrong, OT - 01/08/2020 3:48 PM EDTPlan of Care - Radha Brooks, PT - 01/08/2020 2:10 PM EDT Miscellaneous Notes (unrecog nized section and content) Goals reviewed and discussed with patient. Occupational Therapy Plan of Care Certification Note Coded Admission Diagnosis Primary osteoarthritis of right knee [M17.11] OT Functional Diagnosis: Z73.6 Disability affecting daily living OT Goals Multidisciplinary Problems (Active) Problem: Impaired Neurologic Function Dates: Start: 01/08/20 Description: Disciplines: OT Goal: OT- static standing balance Dates: Start: 01/08/20 Expected End: 01/09/20 Description: OT - Patient will complete static standing balance activity with supervision in preparation for ADL's. Disciplines: OT Intervention: EDUCATION, ADL/IADL RETRAINING Frequency: PRN Dates: Start: 01/08/20 Description: Problem: Impaired Strength Dates: Start: 01/08/20 Description: Problem: Mobility - Impaired Dates: Start: 01/08/20 Description: Disciplines: OT Goal: OT- toilet transfer Dates: Start: 01/08/20 Expected End: 01/09/20 Description: OT - Patient will complete toilet transfer with stand by assist in preparation for ADL's. Disciplines: OT Goal: OT- tub transfer Dates: Start: 01/08/20 Expected End: 01/09/20 Description: OT - Patient will complete tub transfer with contact guard with AE training in preparation for ADL's. Disciplines: OT Intervention: EDUCATION, ADL/IADL RETRAINING Frequency: PRN Dates: Start: 01/08/20 Description: Intervention: EDUCATION, FUNCTIONAL MOBILITY TRAINING Frequency: PRN Dates: Start: 01/08/20 Description: Intervention: EDUCATION, ADAPTIVE EQUIPMENT TRAINING Frequency: PRN Dates: Start: 01/08/20 End: 01/09/20 Description: REMINDER(s): Provide instruction on adaptive equipment for bathroom transfers. Problem: Self-care Deficit Dates: Start: 01/08/20 Description: Disciplines: OT Goal: OT- LB dressing Dates: Start: 01/08/20 Expected End: 01/09/20 Description: OT - Patient will complete LB dressing with stand by assist with AE training to improve self care function. Disciplines: OT Goal: OT- toileting Dates: Start: 01/08/20 Expected End: 01/09/20 Description: OT - Patient will complete toileting with stand by assist to improve self care function. Disciplines: OT Goal: OT- navigation Dates: Start: 01/08/20 Expected End: 01/09/20 Description: OT - Patient will navigate environment with stand by assist with WW for safe return to home/community. Disciplines: OT Intervention: EDUCATION, ADAPTIVE EQUIPMENT TRAINING Frequency: PRN Dates: Start: 01/08/20 Description: REMINDER(s): Provide instruction on adaptive equipment. Intervention: EDUCATION, ADL/IADL RETRAINING Frequency: PRN Dates: Start: 01/08/20 Description: Intervention: EDUCATION, NEUROMUSCULAR REEDUCATION Frequency: PRN Dates: Start: 01/08/20 Description: Frequency of Treatment (times per week): (Eval and tx) This Occupational Therapy Plan of Care will be carried out until: 1.) The OT plan has been resolved or 2.) The patient is discharged from the acute care hospital Physical Therapy Plan of Care Certification Note Coded Admission Diagnosis Primary osteoarthritis of right knee [M17.11] PT Functional Diagnosis: R26.2 Difficulty in walking, not elsewhere classified PT Goals Multidisciplinary Problems (Active) Problem: Impaired Strength Dates: Start: 01/08/20 Description: Disciplines: PT Goal: PT- strengthening Dates: Start: 01/08/20 Expected End: 01/09/20 Description: Pt will independently perform total knee replacement protocol HEP to improve LE functional strength and achieve knee AROM of 0-90 degrees. Disciplines: PT Intervention: EDUCATION, THERAPEUTIC EXERCISE Frequency: PRN Dates: Start: 01/08/20 Description: Problem: Mobility - Impaired Dates: Start: 01/08/20 Description: Disciplines: PT Goal: PT- bed mobility Dates: Start: 01/08/20 Expected End: 01/09/20 Description: PT - Patient will perform bed mobility with independence to improve functional mobility and safety. Disciplines: PT Goal: PT- sit to stand transfer Dates: Start: 01/08/20 Expected End: 01/09/20 Description: PT - Patient will perform sit to/from stand transfer with modified independence to improve functional mobility and safety. Disciplines: PT Goal: PT- stand-pivot transfer Dates: Start: 01/08/20 Expected End: 01/09/20 Description: PT - Patient will perform stand-pivot transfer with modified independence to improve functional mobility and safety. Disciplines: PT Goal: PT- car transfer Dates: Start: 01/08/20 Expected End: 01/09/20 Description: PT - Patient will perform car transfer with modified independence to improve functional mobility and safety. Disciplines: PT Goal: PT- ambulation Dates: Start: 01/08/20 Expected End: 01/09/20 Description: PT - Patient will ambulate 150 feet with device with modified independence to improve functional mobility and safety. Disciplines: PT Goal: PT- stair climbing Dates: Start: 01/08/20 Expected End: 01/09/20 Description: PT - Patient will ascend and descend 20 stairs with non-reciprocal technique with 1 rail and assistive device with modified independence to improve functional mobility and safety. Disciplines: PT Intervention: EDUCATION, ASSISTIVE DEVICE TRAINING Frequency: PRN Dates: Start: 01/08/20 Description: Intervention: EDUCATION, BED MOBILITY TRAINING Frequency: PRN Dates: Start: 01/08/20 Description: Intervention: EDUCATION, GAIT TRAINING Frequency: PRN Dates: Start: 01/08/20 Description: Intervention: EDUCATION, STAIR TRAINING Frequency: PRN Dates: Start: 01/08/20 Description: Intervention: EDUCATION, TRANSFER TRAINING Frequency: PRN Dates: Start: 01/08/20 Description: Intervention: EDUCATION, PRECAUTIONS Frequency: PRN Dates: Start: 01/08/20 Description: Frequency of Treatment (times per week): 7 This physical Therapy Plan of Care will be carried out until: 1.) The PT plan has been resolved or 2.) The patient is discharged from the acute care hospital Plan of care reviewed and updated PREOPERATIVE DIAGNOSIS Right knee degenerative arthrosis. POSTOP DIAGNOSIS Right knee degenerative arthrosis. PROCEDURE Robotic-assisted right total knee replacement. ANESTHESIA Spinal anesthetic. COMPLICATIONS No intraoperative complications. SPECIMENS Bone. ESTIMATED BLOOD LOSS 1 mL. TOURNIQUET TIME 50 minutes. HISTORY Carmen is a 54-year-old patient has severe right knee degenerative arthrosis unresponsive to conservative measures. For further details see admission history and physical examination. Explained all the risks and complications of surgery including but not limited to the risk of infection, bleeding, neurologic, or vascular injury, possibility of deep venous thrombosis, pulmonary embolism, myocardial infarction, stroke, or even with surgery. Explained the possibilities of continued pain, stiffness, loss of range of motion, as well as the need for future surgery. Given all the options of anesthetic per the anesthesia team and at this point in time elected for a spinal anesthetic. We talked to him about the possibilities of infection, bleeding, neurologic, or vascular injury, possibility of deep venous thrombosis, pulmonary embolism, myocardial infarction, stroke, or even with surgery. Explained the possibilities of continued pain, stiffness, loss of range of motion. He understood this and at this point in time, consented for surgery. PROCEDURE IN DETAIL Patient was met in the preop holding area. The right knee was confirmed to be the appropriate site and marked by myself. Patient was taken to the operative suite given preoperative Kefzol per protocol, as well as a spinal anesthetic. Right lower extremity was placed in proximal thigh tourniquet. Right lower extremity was then sterilely prepped and draped using ChloraPrep solution as well as InteguSeal. After sterilization of the right leg, we did our final time-out to confirm that the right leg was in fact the appropriate site that had been marked by myself. At this time, we then went ahead and proceeded forward with elevation of the right leg tourniquet. A 10 cm incision made along the medial border of the patella, medial arthrotomy was performed. Suprapatellar synovectomy was performed patella fat pad was debulked, and patella was cut. We placed our distal femoral checkpoint, proximal tibial checkpoint, placed our distal femoral array and our proximal tibial array. We then did robotic-assisted mapping of the distal femur and the proximal tibia in the usual standard fashion. We then went ahead and proceeded forward with doing flexion extension gap balancing. After the flexion-extension gaps were balanced we did robotic-assisted cuts of the distal femur and the proximal tibia. We then removed medial lateral redundant menisci, stripped posterior femoral capsule, posterior femoral osteophytes, and sized the proximal tibia to be a size 5 tibial base plate. We did sequential reductions and settled on a 10 mm cruciate-retaining tibial insert, which gave us full extension, full flexion, excellent varus and valgus stability, and good patellar tracking using a size A35 patella after lateral release was performed. After all components were selected, we then went ahead and proceeded forward with doing injections of local anesthetic around the distal femur and the proximal tibia in the usual standard fashion. We then did antibiotic-impregnated irrigation throughout the right knee. We then went ahead and proceeded forward with placing our size 5 tibial base plate, 10 mm cruciate-retaining tibial insert, 5 right femoral component, and A35 patella. After all components were placed, we then went ahead and proceeded forward with ranging the knee throughout a range of motion. There was good patella tracking. We then went ahead and did our final antibiotic-impregnated irrigation, sprinkled vancomycin powder throughout the contact surface areas the right knee. Medial arthrotomy was closed using #2 Vicryl. A final series of local was injected subcutaneously. 2-0 Vicryl skin tammy used on skin. Exophytic was placed on the wound as well as a sterile Mepilex dressing. Patient was then taken to PACU without intraoperative complications. D 01/08/2020 08:42 [id number] 01/08/2020 09:04 MCB/MODL Brief Post Operative Note Patient Name: Carmen Gilman : 1965 (54 y.o.) Date of Service: 01/08/2020 CSN: [id number] Procedure(s): Right Total Knee Replacement Robotic Pre-Operative Diagnoses: * Primary osteoarthritis of right knee [M17.11] Post-Operative Diagnoses: * Same as Pre-Op Diagnosis * Primary osteoarthritis of right knee [M17.11] Surgeon(s) and Role: * Sofía Dukes MD - Primary Anesthesiologist: Paulino Helton MD RN INTERVENTIONAL: Carolina Lai CRNA Ekg Manager: Marissa Gagnon RN Scrub Person: ST Laila Scrub Person Assist: Roseanna Oliveros RN Operative findings: djd Intra and immediate post-operative complications: none Type of anesthesia used: Spinal Estimated blood loss: 1 mL Estimated urine output: Refer to surgical log Specimen(s): ID Type Source Tests Collected by Time Destination 1 : Swab Knee, Right SURGICAL SITE AEROBIC CULTURE, SURGICAL SITE ANAEROBIC CULTURE Sofía Dukes MD 01/08/2020 0742 2 : Swab Knee, Right SURGICAL SITE AEROBIC CULTURE, SURGICAL SITE ANAEROBIC CULTURE Sofía Dukes MD 01/08/2020 0742 A : Bone and Soft Tissue Bone Knee, Right TISSUE EXAM Sofía Dukes MD 01/08/2020 0617 B : right knee Tissue Synovium, Please Specify TISSUE EXAM Sofía Dukes MD 01/08/2020 0743 Implant(s): Implant Name Type Inv. Item Serial No. Photographic Specialist Lot No. LRB No. Used Action BASEPLATE SZ5 TIBIAL TRITANIUM TRIATHLON - [id number] BASEPLATE SZ5 TIBIAL TRITANIUM TRIATHLON JODI OR [id number] Right 1 Implanted INSERT SZ5-10 TIBIAL CR X3 TRIATHLON [id number] - [id number] INSERT SZ5-10 TIBIAL CR X3 TRIATHLON [id number] JODI OR [id number] Right 1 Implanted COMPONENT SZ5 FEM CR RT CEMENTLESS BEADED W/PA TRIATHLON - [id number] COMPONENT SZ5 FEM CR RT CEMENTLESS BEADED W/PA TRIATHLON JODI OR [id number] Right 1 Implanted PATELLA 35MM ASYMMETRIC METAL-BACKED TRITANIUM TRIATHLON - [id number] PATELLA 35MM ASYMMETRIC METAL-BACKED TRITANIUM TRIATHLON JODI OR [id number] Right 1 Implanted Drain(s): * No LDAs found * Wound(s): Wound 01/08/20 Surgical Wound Knee Right (Active) Sofía Dukes MD 01/08/2020 8:39 AM documented in this encounter Cardiology Sign-Off Discharge Medications: Continue current cardiac medications at current doses, unlimited duration. Initiate the following medication upon discharge: Xarelto 20 mg daily, Cardizem CD is to 240 mg daily. Follow-up Imaging, Testing: The patient be scheduled for an outpatient follow- up, consideration for stress study will be reviewed. Follow-up Appointments: Our office will contact the patient for follow-up appointment. Additional Instructions Reviewed with Patient and/or Family: N/A Patient seen this morning, he has been extubated. In reviewing his history he states he has chronic edema. On the day of admission he was walking up a flight of stairs and noted this onset of shortness of breath which progressively worsened. He denied any chest pain or pressure was unaware of palpitations or rapid heart action. Karthikeyan was called with the history as previously noted from that event. I am not sure the nature of his presentation, his BNP level did not appear to be significantly elevated, chest x-ray showed no overt pulmonary edema, I do not know if the atrial fib with RVR with some component. I suspect he does have sleep apnea, would benefit from a sleep study and likely treatment. At this point based upon his stroke risk I would be in favor of Xarelto anticoagulation, he is back in sinus rhythm would recommend ongoing treatment with Cardizem CD 240 daily. I do identify some rhonchi as I visit with him this morning so I am avoiding a beta-emily at this point. We will make arranges for an outpatient office visit and any additional evaluation at that time. Please call with any questions. Problem: Actual or potential alteration in health Goal: Absence of healthcare acquired conditions 07/08/20201940 by Rashmi Dsouza RN Outcome: Partially Met 07/08/20201940 by Rashmi Dsouza RN Outcome: Partially Met Goal: Knowledge of Interdisciplinary Plan of Care 07/08/20201940 by Rashmi Dsouza RN Outcome: Partially Met 07/08/20201940 by Rashmi Dsouza RN Outcome: Partially Met Goal: Knowledge of Enviroment 07/08/20201940 by Rashmi Dsouza RN Outcome: Partially Met 07/08/20201940 by Rashmi Dsouza RN Outcome: Partially Met Problem: Falls, Risk of Goal: Absence of falls 07/08/20201940 by Rashmi Dsouza RN Outcome: Partially Met 07/08/20201940 by Rashmi Dsouza RN Outcome: Partially Met Problem: Pressure Ulcer - Risk of Goal: Absence of pressure ulcer 07/08/20201940 by Rashmi Dsouza RN Outcome: Partially Met 07/08/20201940 by Rashmi Dsouza RN Outcome: Partially Met Problem: Pressure Ulcer - Risk of Goal: Absence of pressure ulcer 07/08/20201940 by Rashmi Dsouza RN Outcome: Partially Met 07/08/20201940 by Rashmi Dsouza RN Outcome: Partially Met Problem: Restraint Use - Nonviolent/Miw-Rwzs-Tijqlcetahk Behavior Goal: Absence of restraint indications 07/08/20201940 by Rashmi Dsouza RN Outcome: Met 07/08/20201940 by Rashmi Dsouza RN Outcome: Partially Met Daughter Ginny at bedside. Provided with update on his current condition, test results, and plan for extubation. She provided some additional history. Patient was an alcoholic years ago but has not drank in several years because he now uses marijuana and suboxone regularly. Strong family history of beta thalassemia. His mother has beta thalassemia and his daughter is a carrier. Unclear if patient has been tested. Patient does have high output heart failure, splenomegaly, and anemia. Will verify prior workup and if not, will obtain. Iron studies, peripheral blood smear and Vitamin D level sent. IV team consulted for PICC placement. Chart and History reviewed. triple lumen PICC inserted following universal protocol into right basilic vein. PICC trimmed at 50cm. External length at 5cm. Patient tolerated well. PICC okay to use as tip is confirmed in lower SVC per ECG technology - maximum P wave and absence of negative deflection. Invasive Line Insertion Checklist followed. Flushes easily with good blood return. Rashmi MENDOZA notified OK to use. Associated Problem(s): Acute on chronic respiratory failure with hypoxia and hypercapnia (HCC) Discussed with lithograph press operator tinware at bedside. CT PE study is being ordered. Associated Problem(s): Acute congestive heart failure (HCC) I do not believe this was acute systolic or diastolic heart failure. Echo reviewed and noted. Associated Problem(s): Atrial fibrillation with rapid ventricular response (HCC) Now converted, will check EKG. Continue IV heparin at this time. [id number] is 2, consideration for long-term oral anticoagulation. Patient family contact numbers: Kassie Parks (dtr) Aliyah Gilman (sister) Calin Gilman (brother) Meri Gilman (mother) Focusing on patient safety and device maintenance during shift. POC initiated. [facility] Physician - Brief Progress Note PERMANENT 07/08/2020 01:50 [facility] CARMEN GILMAN Date of Service 07/08/2020 01:50 HPI/Events of Note - eICU Physician New Patient Note PROBLEMS: 1. Acute Hypoxic and Hypercapnic Respiratory Failure - due to AECOPD - intubated and on the ventilator 2. Acute Exacerbation of COPD - treating with steroids, bronchodilators, and antibiotics 3. Atrial Fibrillation - treating with diltiazem for rate control - anticoagulating with heparin infusion RECOMMENDATIONS: 1. Agree with current treatment The medical record was reviewed. The patient was evaluated on the video camera - breathing comfortably on the ventilator. Presented to ED with dyspnea and wheezing. ABG showed hypoxia and respiratory acidosis. He was intubated and placed on the ventilator. Chest Xray shows clear lungs. COVID test is negative. Interventions Major-Arrhythmia - evaluation and management, Respiratory failure - evaluation and management Intermediate-Bronchospasm - evaluation and treatment documented in this encounter SVN given with double filtered nebulizer. Pt kept seal around mouthpiece throughout treatment. Special isolation precautions are in place with signage outside this patient's room. This care worker performs hand hygiene and enters the patient room wearing: ? gloves ? an appropriately fitting (N-95, PAPR, Aura) mask ? face shield ? protective gown to provide care. See documentation for the care provided. This technologist wore full PPE during CXR: Gown Gloves N95 Mask Face Shield Technologist, SB CANNON outside the room that assisted with cleaning the portable wore: Surgical Mask Gloves documented in this encounter Pt refusing ABG. documented in this encounter Associated Problem(s): Opioid dependence (HCC) Patient denies any illicit drug use and is currently on Suboxone 8 mg twice daily. We will continue and monitor closely. Associated Problem(s): Essential hypertension Blood pressures currently well controlled on current regimen of diltiazem 240 mg daily and lisinopril 20 mg daily. Associated Problem(s): Type 2 diabetes mellitus without complication, without long-term current use of insulin (HCC) Patient currently not on antihyperglycemic medications and will continue to monitor closely since he will be on IV steroids at this time. Associated Problem(s): COPD with acute exacerbation (HCC) Mr. Gilman is a very pleasant 55-year-old male with a past medical history significant for hypertension, type 2 diabetes mellitus, and known COPD who was hospitalized within the last year with an acute exacerbation of COPD that was severe requiring intubation and mechanical ventilation at that time. The patient presents to [place] emergency room yesterday with severe shortness of breath and relative hypoxia and did improve with some nebulized bronchodilators but a chest x-ray revealed a right lower lobe infiltrate and the patient was having a productive cough of yellow sputum. The patient was admitted at this time for an acute exacerbation of COPD likely secondary to right lower lobe pneumonia and IV antibiotics, IV steroids, nebulized bronchodilators, supplemental oxygen as needed will be provided. Initial EKG did not reveal any acute cardiac ischemia and initial troponins were undetectable but will continue with serial troponins as well as continuous cardiac monitoring at this time. Currently this a.m. the patient states he is feeling significantly better and denies any chest pain and states his shortness of breath is at least 75% improved however he continues to have prolonged expiratory phase with diminished breath sounds in the bilateral bases right greater than left. His productive cough has improved but continues with some yellow sputum production. He denies any nausea or vomiting, diarrhea or constipation, dizziness or headache. Pt approached nurses station stating he wants to leave AMA. I explained the benefits of staying in the hospital, Pt still wanted to leave. Pt was satisfied with all services but still wanted to leave. I will notify Dr Sinha. IV and tele removed. Continue POC. IV ATBs and fluids. POC reviewed and to continue POC initiated Problem: Actual or potential alteration in health Goal: Absence of healthcare acquired conditions Outcome: Not Met Goal: Knowledge of Interdisciplinary Plan of Care Outcome: Not Met Goal: Knowledge of Enviroment Outcome: Not Met Problem: Pain Goal: Manage acute pain Outcome: Not Met Goal: Manage chronic pain Outcome: Not Met Goal: Reduced pain sensation Outcome: Not Met Goal: Achievement of comfort function goal Outcome: Not Met Problem: Plan for Discharge Goal: Knowledge of discharge plan and instructions Outcome: Not Met documented in this encounter Visit Details Home Health Visit - Care Radha n (unrecognized section and content) Visit Type -SN HH OASIS Star t of Care Discipline -Mcc Problems Problem Start Date Status Goals Interventions Abnormal Findings Disciplines: Mcc, Physical Therapy, Occupational Therapy, Speech Therapy, Home Health Aide, Medical Social Work, Spiritual Care, Art Therapy, Massage Therapy, Registered Dietitian, Student - Medical Social Work 01/09/2020 Active 1 goal linked to scheduled/documented intervention 1 goal intervention scheduled/documented in this visit Home Medication Management Disciplines: Mcc 01/09/2020 Active 1 goal linked to scheduled/documented intervention 4 goal interventions scheduled/documented in this visit Learning/Teaching Needs - Joint Replacement Disciplines: Mcc 01/09/2020 Active 1 goal linked to scheduled/documented intervention 6 goal interventions scheduled/documented in this visit Pain Management Disciplines: Mcc 01/09/2020 Active 1 goal linked to scheduled/documented intervention 1 goal intervention scheduled/documented in this visit Risk of Falls Disciplines: Mcc, Physical Therapy, Occupational Therapy, Speech Therapy, Home Health Aide, Medical Social Work, Spiritual Care, Art Therapy, Massage Therapy, Registered Dietitian, Student - Medical Social Work 01/09/2020 Active 1 goal linked to scheduled/documented intervention 1 goal intervention scheduled/documented in this visit Skilled Assessment Disciplines: Mcc 01/09/2020 Active 1 goal linked to scheduled/documented intervention 3 goal interventions scheduled/documented in this visit Goals Goal Associated Problem Outcome Goal Met? Visit Notes Assessment findings goal Abnormal Findings No Medication management goal Home Medication Management No Post-op complication goal Learning/Teaching Needs - Joint Replacement No Pain management goal Pain Management No Balance/Fall risk goal Risk of Falls No Rehospitalization joint replacement goal Skilled Assessment No Interventions Intervention Associated Problem/Goal Status Variance Visit Notes Report abnormal assessment to physician Problem:Abnormal Findings Goal:Assessment findings goal Scheduled Instruct on high risk medications Problem:Home Medication Management Goal:Medication management goal Scheduled Medication box Problem:Home Medication Management Goal:Medication management goal Scheduled Skilled assessment medications Problem:Home Medication Management Goal:Medication management goal Scheduled Teach medication management Problem:Home Medication Management Goal:Medication management goal Scheduled Incision site care Problem:Learning/Teaching Needs - Joint Replacement Goal:Post-op complication goal Scheduled Instruct diet Problem:Learning/Teaching Needs - Joint Replacement Goal:Post-op complication goal Scheduled Instruct on constipation prevention Problem:Learning/Teaching Needs - Joint Replacement Goal:Post-op complication goal Scheduled Instruct on management of immobility complications Problem:Learning/Teaching Needs - Joint Replacement Goal:Post-op complication goal Scheduled Instruct on the prevention of deep vein thrombosis Problem:Learning/Teaching Needs - Joint Replacement Goal:Post-op complication goal Scheduled Teach Problem:Learning/Teaching Needs - Joint Replacement Goal:Post-op complication goal Scheduled Instruct on pain management techniques Problem:Pain Management Goal:Pain management goal Scheduled Instruct on fall prevention Problem:Risk of Falls Goal:Balance/Fall risk goal Scheduled Obtain pulse oximetry Problem:Skilled Assessment Goal:Rehospitalization joint replacement goal Scheduled SN/RESIDENTIAL CHILD CARE COUNSELOR obtain vital signs Problem:Skilled Assessment Goal:Rehospitalization joint replacement goal Scheduled Teaching - disease process Problem:Skilled Assessment Goal:Rehospitalization joint replacement goal Scheduled Visit Details Visit Type -PT Initial Evalu ation Discipline -Physical Therapy Problems Problem Start Date Status Goals Interventions AP02- Decreased Knowledge of Pain Management Disciplines: Physical Therapy 01/09/2020 Active 1 goal linked to scheduled/documented intervention 1 goal intervention scheduled/documented in this visit Abnormal Findings Disciplines: Mcc, Physical Therapy, Occupational Therapy, Speech Therapy, Home Health Aide, Medical Social Work, Spiritual Care, Art Therapy, Massage Therapy, Registered Dietitian, Student - Medical Social Work 01/09/2020 Active 1 goal linked to scheduled/documented intervention 1 goal intervention scheduled/documented in this visit PT11- Decreased ROM Disciplines: Physical Therapy 01/09/2020 Active 1 goal linked to scheduled/documented intervention 1 goal intervention scheduled/documented in this visit PT14- Decreased Strength Disciplines: Physical Therapy 01/09/2020 Active 1 goal linked to scheduled/documented intervention 1 goal intervention scheduled/documented in this visit PT16- Decreased knowledge of Home Exercise Program Disciplines: Physical Therapy 01/09/2020 Active 1 goal linked to scheduled/documented intervention 1 goal intervention scheduled/documented in this visit PT19- Decreased Transfer Ability Disciplines: Physical Therapy 01/09/2020 Active 1 goal linked to scheduled/documented intervention 1 goal intervention scheduled/documented in this visit PT20- Decreased Ambulation Ability Disciplines: Physical Therapy 01/09/2020 Active 1 goal linked to scheduled/documented intervention 1 goal intervention scheduled/documented in this visit PT24- Decreased Balance/Increased Fall Risk Disciplines: Physical Therapy 01/09/2020 Active 1 goal linked to scheduled/documented intervention 1 goal intervention scheduled/documented in this visit Risk of Falls Disciplines: Mcc, Physical Therapy, Occupational Therapy, Speech Therapy, Home Health Aide, Medical Social Work, Spiritual Care, Art Therapy, Massage Therapy, Registered Dietitian, Student - Medical Social Work 01/09/2020 Active 1 goal linked to scheduled/documented intervention 1 goal intervention scheduled/documented in this visit Goals Goal Associated Problem Outcome Goal Met? Visit Notes Pain management education goal AP02- Decreased Knowledge of Pain Management No Assessment findings goal Abnormal Findings No Range of motion goal PT11- Decreased ROM No Strength PT Ortho goal PT14- Decreased Strength No HEP education goal PT16- Decreased knowledge of Home Exercise Program No Transfer goal PT19- Decreased Transfer Ability No Ambulation PT Ortho goal PT20- Decreased Ambulation Ability No Balance/Fall risk PT Ortho goal PT24- Decreased Balance/Increased Fall Risk No Balance/Fall risk goal Risk of Falls No Interventions Intervention Associated Problem/Goal Status Variance Visit Notes Assess/Instruct in pain management techniques and evaluate effectiveness. Problem:AP02- Decreased Knowledge of Pain Management Goal:Pain management education goal Completed i educated him to use ice/elevation 1 hour 3x per day; he verbalized understanding Report abnormal assessment to physician Problem:Abnormal Findings Goal:Assessment findings goal Scheduled Assess/Instruct in therapeutic exercises and perform manual techniques to improve functional ROM. Problem:PT11- Decreased ROM Goal:Range of motion goal Completed i educated him on seated and supine heel slides and heel prop w/ quad set PT muscle re-education Problem:PT14- Decreased Strength Goal:Strength PT Ortho goal Completed i educated him on laq, saq, and slr. he refused to complete PT establish or upgrade home program Problem:PT16- Decreased knowledge of Home Exercise Program Goal:HEP education goal Completed he refused to get out his hep from joint camp. i encouraged him to do so later when he feels better PT transfer training Problem:PT19- Decreased Transfer Ability Goal:Transfer goal Completed see eval Assess/Instruct in safe gait techniques in home. Problem:PT20- Decreased Ambulation Ability Goal:Ambulation PT Ortho goal Completed see eval Assess/Instruct in balance and fall prevention techniques Problem:PT24- Decreased Balance/Increased Fall Risk Goal:Balance/Fall risk PT Ortho goal Completed see eval Instruct on fall prevention Problem:Risk of Falls Goal:Balance/Fall risk goal Scheduled Visit Details Visit Type -GLASS CUTTER HELPER HH Missed Vi sit Discipline -Mcc Visit Details Visit Type -SN HH Routine Vi sit Discipline -Mcc Interventions Intervention Associated Problem/Goal Status Variance Visit Notes Report abnormal assessment to physician Problem:Abnormal Findings Goal:Assessment findings goal Completed Instruct on high risk medications Problem:Home Medication Management Goal:Medication management goal Completed Review and identify unnecessary therapeutic duplication; cardiovascular medication problems related to dizziness; continued hyper/hypotension or low pulse; falls, dizziness, or confusion; and inappropriate use of non-steroidal anti-inflammatory drugs (NSAIDs). Medication box Problem:Home Medication Management Goal:Medication management goal Completed patient takes his meds without assist Skilled assessment medications Problem:Home Medication Management Goal:Medication management goal Completed Skilled observation and assessment of patient's response to new medications, changed medications, change in treatment plan, and for s/s of complications, or exacerbation of disease process. Teach medication management Problem:Home Medication Management Goal:Medication management goal Completed no new medications. reviewd medications Incision site care Problem:Learning/Tea kayleigh Needs - Joint Replacement Goal:Post-op complication goal Completed Keep dressing in place until follow up appointment with physician. You may shower with dressing on. Keep incision clean and dry. Monitor for signs of infection such as fevers, chills, redness, abnormal pain, Swelling, pus, foul odor, etc...Instruct patient/caregiver in incision site care. Instruct diet Problem:Learning/Tea kayleigh Needs - Joint Replacement Goal:Post-op complication goal Completed reviewed Instruct on constipation prevention Problem:Learning/Tea kayleigh Needs - Joint Replacement Goal:Post-op complication goal Completed Instruct on management of immobility complications Problem:Learning/Tea kayleigh Needs - Joint Replacement Goal:Post-op complication goal Completed Instruct on the prevention of deep vein thrombosis Problem:Learning/Tea kayleigh Needs - Joint Replacement Goal:Post-op complication goal Completed Teach Problem:Learning/Tea kayleigh Needs - Joint Replacement Goal:Post-op complication goal Completed Instruct on pain management techniques Problem:Pain Management Goal:Pain management goal Completed Instruct Patient on medications and alternative strategies to relieve pain. Instruct on fall prevention Problem:Risk of Falls Goal:Balance/Fall risk goal Completed Obtain pulse oximetry Problem:Skilled Assessment Goal:Rehospitalizati on joint replacement goal Completed SN/RESIDENTIAL CHILD CARE COUNSELOR obtain vital signs Problem:Skilled Assessment Goal:Rehospitalizati on joint replacement goal Completed Teaching - disease process Problem:Skilled Assessment Goal:Rehospitalizati on joint replacement goal Completed Visit Details Visit Type -SN HH PRN/On-Drea l Visit Discipline -Mcc Visit Details Visit Type -FLAKEBOARD LINE TENDER Routine Visi t Discipline -Physical Therapy Goals Goal Associated Problem Outcome Goal Met? Visit Notes Pain management education goal AP02- Decreased Knowledge of Pain Management Partially Met No Assessment findings goal Abnormal Findings No No abnormal findings on this date. Range of motion goal PT11- Decreased ROM Partially Met No AROM 2 to 53 degrees Strength PT Ortho goal PT14- Decreased Strength Partially Met No HEP education goal PT16- Decreased knowledge of Home Exercise Program Partially Met No Transfer goal PT19- Decreased Transfer Ability Partially Met No Ambulation PT Ortho goal PT20- Decreased Ambulation Ability Partially Met No Balance/Fall risk PT Ortho goal PT24- Decreased Balance/Increased Fall Risk Partially Met No Balance/Fall risk goal Risk of Falls Partially Met No Interventions Intervention Associated Problem/Goal Status Variance Visit Notes Assess/Instruct in pain management techniques and evaluate effectiveness. Problem:AP02- Decreased Knowledge of Pain Management Goal:Pain management education goal Completed FLAKEBOARD LINE TENDER educated pt. with pain management techniques such as icing, elevation, resting, stretching, and taking prescribed pain medication before or after activities to reduce pain and optimize daily physical functioning. Pt. able to exhibit a good understanding with the information provided by FLAKEBOARD LINE TENDER. Report abnormal assessment to physician Problem:Abnormal Findings Goal:Assessment findings goal Completed No abnormal findings on this date. Assess/Instruct in therapeutic exercises and perform manual techniques to improve functional ROM. Problem:PT11- Decreased ROM Goal:Range of motion goal Completed Patinet performed heal slides in supine position. Pt. c/o of increased right knee pain. Pt.'s right knee AROM ( 2 degrees extension and 53 degrees flexion) PT muscle re-education Problem:PT14- Decreased Strength Goal:Strength PT Ortho goal Completed FLAKEBOARD LINE TENDER provided skilled prompting on correcting proper strengthening exercise form to increase strength to improve stability for improved gait and functional transfer abilities. Pt. able to complete 10x seated strengthening exercises from HEP pictorial cues. Pt. able to complete seated exercises with verbal cue to achieve full range in order to properly engage specific muscle groups and to increase joint articulation to benefit rehab outcome. PT establish or upgrade home program Problem:PT16- Decreased knowledge of Home Exercise Program Goal:HEP education goal Completed FLAKEBOARD LINE TENDER demonstrated, instructed, and provided pictorial cues of HEP exercises to improve independence and confidence. FLAKEBOARD LINE TENDER also educated pt. with the importance of performing HEP on a daily basis to increase strength and tolerance with ADLs and to improve therapy outcome. PT transfer training Problem:PT19- Decreased Transfer Ability Goal:Transfer goal Completed FLAKEBOARD LINE TENDER facilitated with verbal and tactile cues to place feet posteriorly in proper spot to increase knee flexion and to increase anterior lean with increased trunk flexion to improve COM over the AVA at lift off in the sit to stand movement. Pt. able to perform safely a STS from EOB with UE support. Pt. also able to demonstrate good bed mobility transfers. Assess/Instruct in safe gait techniques in home. Problem:PT20- Decreased Ambulation Ability Goal:Ambulation PT Ortho goal Completed FLAKEBOARD LINE TENDER facilitated pt. with ambulation to improve confidence and independence with home mobility. Pt. able to ambulate in home for 60 ft. safely with FWW. Pt. stated increased right knee pain with ambulation. FLAKEBOARD LINE TENDER provided verbal cues to improve antalgic gait. Pt. instructed to decrease step length to improve step pattern from a step to pattern to a reciprocal gait pattern. Assess/Instruct in balance and fall prevention techniques Problem:PT24- Decreased Balance/Increased Fall Risk Goal:Balance/Fall risk PT Ortho goal Completed FLAKEBOARD LINE TENDER reviewed fall prevention strategies with pt. to avoid the risk of falls. Pt. complying by reporting no falls on this date. Instruct on fall prevention Problem:Risk of Falls Goal:Balance/Fall risk goal Completed FLAKEBOARD LINE TENDER reviewed environmental fall risk factors and the proper use of walking aids to improve good stability. FLAKEBOARD LINE TENDER also emphasized the importance of proper lighting/nightlight, proper footwear, make sure of a clutter free pathway, and to be aware of surrounding. Watch for trip hazards and uneven surfaces. Avoid walking when dizzy or weak. Patient demonstrated a good understanding. Visit Details Visit Type -GLASS CUTTER HELPER Routine Discipline -Mcc Interventions Intervention Associated Problem/Goal Status Variance Visit Notes Report abnormal assessment to physician Problem:Abnormal Findings Goal:Assessment findings goal Completed Instruct on high risk medications Problem:Home Medication Management Goal:Medication management goal Completed Review and identify unnecessary therapeutic duplication; cardiovascular medication problems related to dizziness; continued hyper/hypotension or low pulse; falls, dizziness, or confusion; and inappropriate use of non-steroidal anti-inflammatory drugs (NSAIDs). Medication box Problem:Home Medication Management Goal:Medication management goal Completed Patient to fill medication box every Tuesday. SN to instruct Patient and monitor for proper filling and administration. Skilled assessment medications Problem:Home Medication Management Goal:Medication management goal Completed Skilled observation and assessment of patient's response to new medications. Teach medication management Problem:Home Medication Management Goal:Medication management goal Completed Home medication management reviewed with Patient. Patient verbalizes ability to perform safe home medication administration. Incision site care Problem:Learning/Tea kayleigh Needs - Joint Replacement Goal:Post-op complication goal Completed SN to instruct Patient incision site care: Wash incisions daily with soap and water, pat dry. No lotions, powders or creams. Leave open to air when no further drainage. Instruct diet Problem:Learning/Tea kayleigh Needs - Joint Replacement Goal:Post-op complication goal Completed Patient instructed on low sugar and low salt diet and fluid restrictions/requireme nts. Patient verbalizes understanding of nutritional requirements. Instruct on constipation prevention Problem:Learning/Tea kayleigh Needs - Joint Replacement Goal:Post-op complication goal Completed Instruct on management of immobility complications Problem:Learning/Tea kayleigh Needs - Joint Replacement Goal:Post-op complication goal Completed Instruct on the prevention of deep vein thrombosis Problem:Learning/Tea kayleigh Needs - Joint Replacement Goal:Post-op complication goal Completed Teach Problem:Learning/Tea kayleigh Needs - Joint Replacement Goal:Post-op complication goal Completed Instruct on pain management techniques Problem:Pain Management Goal:Pain management goal Completed Instruct Patient on medications and alternative strategies to relieve pain. Instruct on fall prevention Problem:Risk of Falls Goal:Balance/Fall risk goal Completed Obtain pulse oximetry Problem:Skilled Assessment Goal:Rehospitalizati on joint replacement goal Completed SN/RESIDENTIAL CHILD CARE COUNSELOR obtain vital signs Problem:Skilled Assessment Goal:Rehospitalizati on joint replacement goal Completed Teaching - disease process Problem:Skilled Assessment Goal:Rehospitalizati on joint replacement goal Completed Visit Details Visit Type -FLAKEBOARD LINE TENDER Missed Visit Discipline -Physical Therapy Problems Problem Start Date Status Goals Interventions AP02- Decreased Knowledge of Pain Management Disciplines: Physical Therapy 01/09/2020 Active 1 goal linked to scheduled/documented intervention 1 goal intervention scheduled/documented in this visit Abnormal Findings Disciplines: Mcc, Physical Therapy, Occupational Therapy, Speech Therapy, Home Health Aide, Medical Social Work, Spiritual Care, Art Therapy, Massage Therapy, Registered Dietitian, Student - Medical Social Work 01/09/2020 Active 1 goal linked to scheduled/documented intervention 1 goal intervention scheduled/documented in this visit PT11- Decreased ROM Disciplines: Physical Therapy 01/09/2020 Active 1 goal linked to scheduled/documented intervention 1 goal intervention scheduled/documented in this visit PT14- Decreased Strength Disciplines: Physical Therapy 01/09/2020 Active 1 goal linked to scheduled/documented intervention 1 goal intervention scheduled/documented in this visit PT16- Decreased knowledge of Home Exercise Program Disciplines: Physical Therapy 01/09/2020 Active 1 goal linked to scheduled/documented intervention 1 goal intervention scheduled/documented in this visit PT19- Decreased Transfer Ability Disciplines: Physical Therapy 01/09/2020 Active 1 goal linked to scheduled/documented intervention 1 goal intervention scheduled/documented in this visit PT20- Decreased Ambulation Ability Disciplines: Physical Therapy 01/09/2020 Active 1 goal linked to scheduled/documented intervention 1 goal intervention scheduled/documented in this visit PT24- Decreased Balance/Increased Fall Risk Disciplines: Physical Therapy 01/09/2020 Active 1 goal linked to scheduled/documented intervention 1 goal intervention scheduled/documented in this visit Risk of Falls Disciplines: Mcc, Physical Therapy, Occupational Therapy, Speech Therapy, Home Health Aide, Medical Social Work, Spiritual Care, Art Therapy, Massage Therapy, Registered Dietitian, Student - Medical Social Work 01/09/2020 Active 1 goal linked to scheduled/documented intervention 1 goal intervention scheduled/documented in this visit Goals Goal Associated Problem Outcome Goal Met? Visit Notes Pain management education goal AP02- Decreased Knowledge of Pain Management No Assessment findings goal Abnormal Findings No Range of motion goal PT11- Decreased ROM No Strength PT Ortho goal PT14- Decreased Strength No HEP education goal PT16- Decreased knowledge of Home Exercise Program No Transfer goal PT19- Decreased Transfer Ability No Ambulation PT Ortho goal PT20- Decreased Ambulation Ability No Balance/Fall risk PT Ortho goal PT24- Decreased Balance/Increased Fall Risk No Balance/Fall risk goal Risk of Falls No Interventions Intervention Associated Problem/Goal Status Variance Visit Notes Assess/Instruct in pain management techniques and evaluate effectiveness. Problem:AP02- Decreased Knowledge of Pain Management Goal:Pain management education goal Scheduled Report abnormal assessment to physician Problem:Abnormal Findings Goal:Assessment findings goal Scheduled Assess/Instruct in therapeutic exercises and perform manual techniques to improve functional ROM. Problem:PT11- Decreased ROM Goal:Range of motion goal Scheduled PT muscle re-education Problem:PT14- Decreased Strength Goal:Strength PT Ortho goal Scheduled PT establish or upgrade home program Problem:PT16- Decreased knowledge of Home Exercise Program Goal:HEP education goal Scheduled PT transfer training Problem:PT19- Decreased Transfer Ability Goal:Transfer goal Scheduled Assess/Instruct in safe gait techniques in home. Problem:PT20- Decreased Ambulation Ability Goal:Ambulation PT Ortho goal Scheduled Assess/Instruct in balance and fall prevention techniques Problem:PT24- Decreased Balance/Increased Fall Risk Goal:Balance/Fall risk PT Ortho goal Scheduled Instruct on fall prevention Problem:Risk of Falls Goal:Balance/Fall risk goal Scheduled Goals Goal Associated Problem Outcome Goal Met? Visit Notes Pain management education goal AP02- Decreased Knowledge of Pain Management Partially Met No Assessment findings goal Abnormal Findings No No abnormal findings on this date. Range of motion goal PT11- Decreased ROM Partially Met No AROM (0-80 degrees) in supine position Strength PT Ortho goal PT14- Decreased Strength Partially Met No HEP education goal PT16- Decreased knowledge of Home Exercise Program Partially Met No Transfer goal PT19- Decreased Transfer Ability Partially Met No Ambulation PT Ortho goal PT20- Decreased Ambulation Ability Partially Met No Balance/Fall risk PT Ortho goal PT24- Decreased Balance/Increased Fall Risk Partially Met No Balance/Fall risk goal Risk of Falls Partially Met No Interventions Intervention Associated Problem/Goal Status Variance Visit Notes Assess/Instruct in pain management techniques and evaluate effectiveness. Problem:AP02- Decreased Knowledge of Pain Management Goal:Pain management education goal Completed FLAKEBOARD LINE TENDER reviewed pain management techniques with pt. to manage or reduce pain. Pt. exhibited a good understanding and states icing, resting, elevating right LE and taking tylenol to manage pain. Report abnormal assessment to physician Problem:Abnormal Findings Goal:Assessment findings goal Completed No abnormal findings on this date. Assess/Instruct in therapeutic exercises and perform manual techniques to improve functional ROM. Problem:PT11- Decreased ROM Goal:Range of motion goal Completed FLAKEBOARD LINE TENDER instructed pt. to perform heel slides and standing anterior mini lunges on 6 inch step to increase knee flexion by breaking up scar tissue. Pt. AROM (0-80 degrees) PT muscle re-education Problem:PT14- Decreased Strength Goal:Strength PT Ortho goal Completed FLAKEBOARD LINE TENDER provided skilled prompting on correcting proper strengthening exercise form to isolate specific muscles to increase strength to improve stability for improved gait and functional transfer abilities. Pt. performed a variety of seated and standing exercises from HEP pictorial cues to increase quad, hamstring ankle and hip strength. Pt. able to complete all exercises without increased pain. Verbal cue needed to fully extend an flex at end range to increase joint flexibility. PT establish or upgrade home program Problem:PT16- Decreased knowledge of Home Exercise Program Goal:HEP education goal Completed FLAKEBOARD LINE TENDER reviewed HEP with emphasis on full joint ROM to improve strength, increase joint articulation to reduce muscle tightness with transfers. FLAKEBOARD LINE TENDER also educated pt. with the importance of performing HEP on a daily basis to increase strength and tolerance with ADLs and to improve therapy outcome. Pt. exhibited a good understanding and recall of HEP with pictorial cues. PT transfer training Problem:PT19- Decreased Transfer Ability Goal:Transfer goal Completed FLAKEBOARD LINE TENDER facilitated with verbal and tactile cues to place feet posteriorly in proper spot to increase knee flexion and to increase anterior lean with increased trunk flexion to improve COM over the AVA at lift off in the sit to stand movement. Pt. able to perform STSs fromEOB and shower chair with good stbility using UE support. Assess/Instruct in safe gait techniques in home. Problem:PT20- Decreased Ambulation Ability Goal:Ambulation PT Ortho goal Completed FLAKEBOARD LINE TENDER provided verbal cue to concentrate with heel to toe stepping and over flexing R knee during swing phase to increase knee ROM and step height. Pt. able to ambulate inside home and outside home with FWW with good stability and maneuverability. Assess/Instruct in balance and fall prevention techniques Problem:PT24- Decreased Balance/Increased Fall Risk Goal:Balance/Fall risk PT Ortho goal Completed FLAKEBOARD LINE TENDER reviewed fall prevention strategies with pt. to avoid the risk of falls. Pt. complying by reporting no falls on this date Instruct on fall prevention Problem:Risk of Falls Goal:Balance/Fall risk goal Completed FLAKEBOARD LINE TENDER assisted with verbal cues with 30 second STSs to improve safety and balance. Pt. able to complete 8 STSs in 30 seconds. Pt. needed seated rest break due to increased right knee pain. Interventions Intervention Associated Problem/Goal Status Variance Visit Notes Report abnormal assessment to physician Problem:Abnormal Findings Goal:Assessment findings goal Completed Instruct on high risk medications Problem:Home Medication Management Goal:Medication management goal Completed Review and identify unnecessary therapeutic duplication; cardiovascular medication problems related to dizziness; continued hyper/hypotension or low pulse; falls, dizziness, or confusion; and inappropriate use of non-steroidal anti-inflammatory drugs (NSAIDs). Medication box Problem:Home Medication Management Goal:Medication management goal Completed reveiwed medications. Skilled assessment medications Problem:Home Medication Management Goal:Medication management goal Completed Skilled observation and assessment of patient's response to medications. Teach medication management Problem:Home Medication Management Goal:Medication management goal Completed Home medication management reviewed with Patient. Patient verbalizes ability to perform safe home medication administration. Incision site care Problem:Learning/Tea kayleigh Needs - Joint Replacement Goal:Post-op complication goal Completed SN to instruct Patient incision site care: Wash incisions daily with soap and water, pat dry. No lotions, powders or creams. Leave open to air when no further drainage. dressing saturated so dressing changed to Rt knee incisionl. Instruct diet Problem:Learning/Tea kayleigh Needs - Joint Replacement Goal:Post-op complication goal Completed Patient instructed on high protein diet and fluid restrictions/requireme nts. Patient verbalizes understanding of nutritional requirements. Instruct on constipation prevention Problem:Learning/Tea kayleigh Needs - Joint Replacement Goal:Post-op complication goal Completed Instruct on management of immobility complications Problem:Learning/Tea kayleigh Needs - Joint Replacement Goal:Post-op complication goal Completed Instruct on the prevention of deep vein thrombosis Problem:Learning/Tea kayleigh Needs - Joint Replacement Goal:Post-op complication goal Completed Teach Problem:Learning/Tea kayleigh Needs - Joint Replacement Goal:Post-op complication goal Completed Instruct on pain management techniques Problem:Pain Management Goal:Pain management goal Completed Instruct Patient on medications and alternative strategies to relieve pain. Instruct on fall prevention Problem:Risk of Falls Goal:Balance/Fall risk goal Completed Obtain pulse oximetry Problem:Skilled Assessment Goal:Rehospitalizati on joint replacement goal Completed SN/RESIDENTIAL CHILD CARE COUNSELOR obtain vital signs Problem:Skilled Assessment Goal:Rehospitalizati on joint replacement goal Completed Teaching - disease process Problem:Skilled Assessment Goal:Rehospitalizati on joint replacement goal Completed Visit Details Visit Type -PT Non-OASIS/Dis cipl Discharge Discipline -Physical Therapy Problems Problem Start Date Status Goals Interventions AP02- Decreased Knowledge of Pain Management Disciplines: Physical Therapy 01/09/2020 Active 1 goal linked to scheduled/documente d intervention 1 goal intervention scheduled/documented in this visit Abnormal Findings Disciplines: Mcc, Physical Therapy, Occupational Therapy, Speech Therapy, Home Health Aide, Medical Social Work, Spiritual Care, Art Therapy, Massage Therapy, Registered Dietitian, Student - Medical Social Work 01/09/2020 Active 1 goal linked to scheduled/documente d intervention 1 goal intervention scheduled/documented in this visit PT11- Decreased ROM Disciplines: Physical Therapy 01/09/2020 Resolved on 01/24/2020 1 goal linked to scheduled/documente d intervention 1 goal intervention scheduled/documented in this visit PT14- Decreased Strength Disciplines: Physical Therapy 01/09/2020 Resolved on 01/24/2020 1 goal linked to scheduled/documente d intervention 1 goal intervention scheduled/documented in this visit PT16- Decreased knowledge of Home Exercise Program Disciplines: Physical Therapy 01/09/2020 Resolved on 01/24/2020 1 goal linked to scheduled/documente d intervention 1 goal intervention scheduled/documented in this visit PT19- Decreased Transfer Ability Disciplines: Physical Therapy 01/09/2020 Resolved on 01/24/2020 1 goal linked to scheduled/documente d intervention 1 goal intervention scheduled/documented in this visit PT20- Decreased Ambulation Ability Disciplines: Physical Therapy 01/09/2020 Resolved on 01/24/2020 1 goal linked to scheduled/documente d intervention 1 goal intervention scheduled/documented in this visit PT24- Decreased Balance/Increased Fall Risk Disciplines: Physical Therapy 01/09/2020 Active 1 goal linked to scheduled/documente d intervention 1 goal intervention scheduled/documented in this visit Risk of Falls Disciplines: Mcc, Physical Therapy, Occupational Therapy, Speech Therapy, Home Health Aide, Medical Social Work, Spiritual Care, Art Therapy, Massage Therapy, Registered Dietitian, Student - Medical Social Work 01/09/2020 Active 1 goal linked to scheduled/documente d intervention 1 goal intervention scheduled/documented in this visit Goals Goal Associated Problem Outcome Goal Met? Visit Notes Pain management education goal AP02- Decreased Knowledge of Pain Management No Assessment findings goal Abnormal Findings No Range of motion goal PT11- Decreased ROM Partially Met No o-80 deg Strength PT Ortho goal PT14- Decreased Strength Completed Yes 3/5 right knee ext HEP education goal PT16- Decreased knowledge of Home Exercise Program Completed Yes ind w hep Transfer goal PT19- Decreased Transfer Ability Completed Yes ind w no ad Ambulation PT Ortho goal PT20- Decreased Ambulation Ability Completed Yes 150 feet w no ad w ind Balance/Fall risk PT Ortho goal PT24- Decreased Balance/Increased Fall Risk No Balance/Fall risk goal Risk of Falls No Interventions Intervention Associated Problem/Goal Status Variance Visit Notes Assess/Instruct in pain management techniques and evaluate effectiveness. Problem:AP02- Decreased Knowledge of Pain Management Goal:Pain management education goal Scheduled Report abnormal assessment to physician Problem:Abnormal Findings Goal:Assessment findings goal Scheduled Assess/Instruct in therapeutic exercises and perform manual techniques to improve functional ROM. Problem:PT11- Decreased ROM Goal:Range of motion goal Scheduled PT muscle re-education Problem:PT14- Decreased Strength Goal:Strength PT Ortho goal Scheduled PT establish or upgrade home program Problem:PT16- Decreased knowledge of Home Exercise Program Goal:HEP education goal Scheduled PT transfer training Problem:PT19- Decreased Transfer Ability Goal:Transfer goal Scheduled Assess/Instruct in safe gait techniques in home. Problem:PT20- Decreased Ambulation Ability Goal:Ambulation PT Ortho goal Scheduled Assess/Instruct in balance and fall prevention techniques Problem:PT24- Decreased Balance/Increased Fall Risk Goal:Balance/Fall risk PT Ortho goal Scheduled Instruct on fall prevention Problem:Risk of Falls Goal:Balance/Fall risk goal Scheduled Visit Details Visit Type -PT OASIS Dischar ge Discipline -Physical Therapy Problems Problem Start Date Status Goals Interventions AP02- Decreased Knowledge of Pain Management Disciplines: Physical Therapy 01/09/2020 Active 1 goal linked to scheduled/documente d intervention 1 goal intervention scheduled/documented in this visit Abnormal Findings Disciplines: Mcc, Physical Therapy, Occupational Therapy, Speech Therapy, Home Health Aide, Medical Social Work, Spiritual Care, Art Therapy, Massage Therapy, Registered Dietitian, Student - Medical Social Work 01/09/2020 Resolved on 01/25/2020 1 goal linked to scheduled/documente d intervention 1 goal intervention scheduled/documented in this visit PT24- Decreased Balance/Increased Fall Risk Disciplines: Physical Therapy 01/09/2020 Active 1 goal linked to scheduled/documente d intervention 1 goal intervention scheduled/documented in this visit Risk of Falls Disciplines: Mcc, Physical Therapy, Occupational Therapy, Speech Therapy, Home Health Aide, Medical Social Work, Spiritual Care, Art Therapy, Massage Therapy, Registered Dietitian, Student - Medical Social Work 01/09/2020 Resolved on 01/25/2020 1 goal linked to scheduled/documente d intervention 1 goal intervention scheduled/documented in this visit Goals Goal Associated Problem Outcome Goal Met? Visit Notes Pain management education goal AP02- Decreased Knowledge of Pain Management No Assessment findings goal Abnormal Findings No Balance/Fall risk PT Ortho goal PT24- Decreased Balance/Increased Fall Risk No Balance/Fall risk goal Risk of Falls No Interventions Intervention Associated Problem/Goal Status Variance Visit Notes Assess/Instruct in pain management techniques and evaluate effectiveness. Problem:AP02- Decreased Knowledge of Pain Management Goal:Pain management education goal Scheduled Report abnormal assessment to physician Problem:Abnormal Findings Goal:Assessment findings goal Scheduled Assess/Instruct in balance and fall prevention techniques Problem:PT24- Decreased Balance/Increased Fall Risk Goal:Balance/Fall risk PT Ortho goal Scheduled Instruct on fall prevention Problem:Risk of Falls Goal:Balance/Fall risk goal Scheduled Goals Goal Associated Problem Outcome Goal Met? Visit Notes Pain management education goal AP02- Decreased Knowledge of Pain Management Partially Met No Assessment findings goal Abnormal Findings No No abnormal findings on this date. Range of motion goal PT11- Decreased ROM Partially Met No AROM (0-60 degrees) Strength PT Ortho goal PT14- Decreased Strength Partially Met No HEP education goal PT16- Decreased knowledge of Home Exercise Program Partially Met No Transfer goal PT19- Decreased Transfer Ability Partially Met No Ambulation PT Ortho goal PT20- Decreased Ambulation Ability Partially Met No Balance/Fall risk PT Ortho goal PT24- Decreased Balance/Increased Fall Risk Partially Met No Balance/Fall risk goal Risk of Falls Partially Met No Interventions Intervention Associated Problem/Goal Status Variance Visit Notes Assess/Instruct in pain management techniques and evaluate effectiveness. Problem:AP02- Decreased Knowledge of Pain Management Goal:Pain management education goal Completed FLAKEBOARD LINE TENDER educated pt. with pain management techniques to reduce or manage pain. FLAKEBOARD LINE TENDER provided verbal and tactile cues for stretching right knee. FLAKEBOARD LINE TENDER emphasized the importance of ice, elevation, rest and prescribed pain medication to also decrease pain. Pt. demonstrated a good understanding. Report abnormal assessment to physician Problem:Abnormal Findings Goal:Assessment findings goal Completed No abnormal findings on this date. Assess/Instruct in therapeutic exercises and perform manual techniques to improve functional ROM. Problem:PT11- Decreased ROM Goal:Range of motion goal Completed Patient performed heel slides with strap in supine position and mini anterior lunges with step to increase knee flexion. Pt. right knee extentsion/flexion (0-63 degrees) PT muscle re-education Problem:PT14- Decreased Strength Goal:Strength PT Ortho goal Completed Pt. performed a variety of seated exercises from HEP with verbal cue to fully extend and flex with movement to improve joint ROM. Verbal cue also to hold at end range to increase LE quad and hip strength. PT establish or upgrade home program Problem:PT16- Decreased knowledge of Home Exercise Program Goal:HEP education goal Completed FLAKEBOARD LINE TENDER educated pt. with the importance of performing HEP on a daily basis to increase strength and tolerance with ADLs and to improve therapy outcome. Pt. exhibited a good understanding of HEP exercises. PT transfer training Problem:PT19- Decreased Transfer Ability Goal:Transfer goal Completed FLAKEBOARD LINE TENDER instructed pt. to perform STSs from different seated surface levels to promote confidence, strength, and independence with home mobility. Pt. demonstrates safe transfer abilities with good stability using UE support. Assess/Instruct in safe gait techniques in home. Problem:PT20- Decreased Ambulation Ability Goal:Ambulation PT Ortho goal Completed FLAKEBOARD LINE TENDER assisted pt. with ambulation by facilitating with verbal cues to step closer to rollator to correct posture, concentrate with increasing R knee flexion and heel strike with R foot during swing phase to improve stability. Pt. ambulated in home 60 ft. with FWW with good stability. FLAKEBOARD LINE TENDER provided skilled prompting with sequencing with cane and step pattern. Pt. able to perform with good stability and sequencing. Assess/Instruct in balance and fall prevention techniques Problem:PT24- Decreased Balance/Increased Fall Risk Goal:Balance/Fall risk PT Ortho goal Completed FLAKEBOARD LINE TENDER assisted with improving standing stability with verbal and tactile cues to widen AVA and to correct posture to get center of mass over their AVA. Pt. able to reach across midline without UE support with wide base but demonstrated instability with narrow stance. Instruct on fall prevention Problem:Risk of Falls Goal:Balance/Fall risk goal Completed FLAKEBOARD LINE TENDER educated pt. with fall prevention and balancing techniques to eliminate fall risk, lead pt. to safe transfers, and improve stability outside of home and in the community. Visit Details Visit Type -SN HH Non-OASIS/ Discipline DC Discipline -Mcc Problems Problem Start Date Status Goals Interventions Abnormal Findings Disciplines: Mcc, Physical Therapy, Occupational Therapy, Speech Therapy, Home Health Aide, Medical Social Work, Spiritual Care, Art Therapy, Massage Therapy, Registered Dietitian, Student - Medical Social Work 01/09/2020 Resolved on 01/25/2020 1 goal linked to scheduled/documente d intervention 1 goal intervention scheduled/documented in this visit Home Medication Management Disciplines: Mcc 01/09/2020 Resolved on 01/25/2020 1 goal linked to scheduled/documente d intervention 4 goal interventions scheduled/documented in this visit Learning/Teaching Needs - Joint Replacement Disciplines: Mcc 01/09/2020 Resolved on 01/25/2020 1 goal linked to scheduled/documente d intervention 6 goal interventions scheduled/documented in this visit Pain Management Disciplines: Mcc 01/09/2020 Resolved on 01/25/2020 1 goal linked to scheduled/documente d intervention 1 goal intervention scheduled/documented in this visit Risk of Falls Disciplines: Mcc, Physical Therapy, Occupational Therapy, Speech Therapy, Home Health Aide, Medical Social Work, Spiritual Care, Art Therapy, Massage Therapy, Registered Dietitian, Student - Medical Social Work 01/09/2020 Resolved on 01/25/2020 1 goal linked to scheduled/documente d intervention 1 goal intervention scheduled/documented in this visit Skilled Assessment Disciplines: Mcc 01/09/2020 Resolved on 01/25/2020 1 goal linked to scheduled/documente d intervention 3 goal interventions scheduled/documented in this visit Goals Goal Associated Problem Outcome Goal Met? Visit Notes Assessment findings goal Abnormal Findings Completed Yes Medication management goal Home Medication Management Completed Yes Post-op complication goal Learning/Teaching Needs - Joint Replacement Completed Yes Pain management goal Pain Management Completed Yes Balance/Fall risk goal Risk of Falls Completed Yes Rehospitalization joint replacement goal Skilled Assessment Completed Yes Actions Home Health Visit - Actions and Narratives (unrecognized section and content) CP assess. VS WNL. Pain 05/22 0. This nurse called DR Amin's office to inquire about pain medication. His prescription cannot be refilled until Tuesday. Patient states he will probably call squad to take him to the ER. Narratives Lying on air matress in [facility]. Assessment done. alert and oriented. c/o pain in Rt knee rated at a 5/10. is taking pain medication. Is obese. is wanting a cane. this RN contacted Merry and she is going to send a script to [facility]. Dressing to Rt knee saturated from his shower. New aquacel dressing applied. Again educated on icing and elevating Rt leg above heart level. Patient has trouble getting leg elevated due to weight. Denies any further c/o or needs at this time. Actions unable to complete 5x STS or a TUG Narratives s/p R TKR Pt c/o pain, stifffness, weakness, and impaired functional mobility. PLOF: ind w/ amb w/ a cane Living situation: on the 2nd floor of an apartment complex PMH: HTN he refused to participate in vitals or in all of the transfers. he also refused to complete his HEP w/ me today. his phone was not working this am, thus i had to arrive unannounced Actions Pt. would not allow SN to co me to the home and do the discharge face to face so it was completed over the phone. Pt. reports that the tammy and dressing were removed at his physicians visit and he was placed on antibiotics as it was a little irritated' on one side. Overall he reports doing well other than uncontrolled pain and refered to his pain management physician. Scheduled Active and Recently Administ ered Medications (unrecognized section and content) Medication Order 01/31/2021 02/01/2021 02/02/2021 acetaminophen (TYLENOL) tablet 975 mg (COMPLETED) 975 mg, Oral, Once, On Tue02/02/21 at 1635, For 1 dose 174 (Given - Provid er: Carlita Domingo RN) naproxen (NAPROSYN) tablet 500 mg (COMPLETED) 500 mg, Oral, Once, On Tue02/02/21 at 1635, For 1 dose, Give with Food 174 (Given - Provid er: Carlita Domingo RN) traMADoL (ULTRAM) tablet 50 mg (COMPLETED) 50 mg, Oral, Once, On Tue02/02/21 at 1635, For 1 dose 174 (Given - Provid er: Carlita Domingo RN) Scheduled Medication Order 11/13/2021 11/14/2021 11/15/2021 albumin human 25 % injection 50 g (COMPLETED) 50 g, Intravenous, Administer over 60 Minutes, EVERY 6 HOURS, 3 doses, First dose on Tue11/13/21 at 0815, Last dose on Tue11/13/21 at 1800, At [facility], in emergencies, administer as rapidly as necessary to improve clinical conditions. Rate of infusion is based on dose: 12.5g given over 30min, 25g given over 60min, 50g given over 120min., Indications: Fluid Resuscitation 0851 ($$New Bag$$ - Provider: Erickson Canseco RN)1250 ($$New Bag$$ - Provider: Erickson Canseco RN)1843 ($$New Bag$$ - Provider: Erickson Canseco RN) aspirin EC tablet DR 81 mg 81 mg, Oral, DAILY, First dose on Tue11/13/21 at 0930, Until Discontinued 0920 (Given - Provider: Erickson Canseco RN) 0817 (Given - Provider: Jung Hill, KELLY) 0809 (Given - Provider: Priscilla Mcnally RN) budesonide (PULMICORT) nebulizer suspension 0.5 mg 0.5 mg, Inhalation, 2 TIMES DAILY, First dose on Tue11/13/21 at 1700, Until Discontinued 1601 (Not Given - Provider: Indira Portillo, [employer] - Reason: Other - Comment: Due 7a and7p)1911 (Given - Provider: Molly Beatty RCP) 07 (Given - Provider: Jumana Torres RCP)1926 (Given - Provider: Allie Reyes, JORGE) 08 (Given - Provider: Jumana Torres RCP) buprenorphine (SUBUTEX) sublingual tablet 8 mg (CANCELED) 8 mg, Sublingual, DAILY, First dose on Tue11/13/21 at 1545, Until Discontinued, Place tablet under patient tongue until dissolved. Swallowing reduces bioavailability. 1634 (Given - Provider: Erickson Canseco RN) 0817 (Given - Provider: Jung Hill RN) buprenorphine (SUBUTEX) sublingual tablet 8 mg 8 mg, Sublingual, 2 TIMES DAILY, First dose (after last modification) on 11/14/21 at 1845, Until Discontinued, Place tablet under patient tongue until dissolved. Swallowing reduces bioavailability. 184 (Given - Provider: Jung Hill RN) 0809 (Given - Provider: Priscilla Mcnally RN) enOXAParin (LOVENOX) injection 40 mg 40 mg, Subcutaneous, DAILY, First dose on Tue11/13/21 at 2100, Until Discontinued, Indications: DVT/PE prophylaxis 2040 (Given - Provider: Marcin Moran RN) 2117 (Given - Provider: Katelyn Breen, KELLY) furOSEmide (LASIX) injection 40 mg 40 mg, Intravenous, EVERY 12 HOURS, First dose on Tue11/14/21 at 1115, Until Discontinued, Administer by slow IV push at a rate not exceeding 40mg/min 1139 (Given - Provider: Jung Hill RN)2118 (Given - Provider: Katelyn Breen, KELLY) 08 (Given - Provider: Priscilla Mcnally, KELLY) gabapentin (NEURONTIN) capsule 300 mg 300 mg, Oral, 3 TIMES DAILY, First dose on Tue11/14/21 at 1400, Until Discontinued 1352 (Given - Provider: Jung Hill RN)2117 (Given - Provider: Katelyn Breen, KELLY) 08 (Given - Provider: Priscilla Mcnally RN)1400 (Canceled Entry - Provider: System Discharge - Comment: Automatically canceled at discontinue of medication order) iohexol (OMNIPAQUE) 350 MG/ML injection 90 mL (COMPLETED) 90 mL, Intravenous, ONCE, 1 dose, On 11/14/21 at 1145, Patient Weight > 250 lbs (100 ml bottle) Administer 100 ml Omnipaque 350mg/ml with GFR >59 Extravasation Risk, Radiology Procedure 1128 (Given - Radiology - Provider: Tonya Guerrero) magnesium sulfate 2 g/50 mL in sterile water premix IVPB 2 g 50 mL (total volume) 2 g, Intravenous, Administer over 4 Hours, DAILY, First dose on 11/14/21 at 0600, Until Discontinued, Give if magnesium is less than 2 on morning labs. Infuse at a rate of 0.5 gm/hour. 0839 ($$New Bag$$ - Provider: Jung Hill RN)1239 (Stopped - Provider: Jung Hill RN) 0922 ($$New Bag$$ - Provider: Priscilla Mcnally RN)0939 (Stopped - Provider: Jung Hill RN)0940 (Not Given - Provider: Priscilla Mcnally RN - Reason: Patient/family refused) pantoprazole (PROTONIX) tablet DR 40 mg 40 mg, Oral, DAILY, First dose on Tue11/13/21 at 0900, Until Discontinued, Do not crush., Indications: Inpt Stress Ulcer Prophylaxis 0920 (Given - Provider: Erickson Canseco RN) 0817 (Given - Provider: Jung Hill RN) 0809 (Given - Provider: Priscilla Mcnally RN) potassium chloride (K-DUR) tablet ER 40 mEq(Linked Group 1) 40 mEq, Oral, DAILY, First dose on 11/14/21 at 0600, Until Discontinued, Give if potassium is 3.1 to 3.4 on morning labs and patient is able to tolerate oral medications Swallow tablets whole; do not crush, chew, or suck on tablet. Tablet may also be broken in half and each half swallowed separately. 0738 (Not Given - Provider: Jung Hill RN - Reason: Order Parameters not met) 0810 (Not Given - Provider: Priscilla Mcnally RN - Reason: Order Parameters not met) potassium chloride 40 mEq in 0.9% sodium chloride 500 ml IVPB(Linked Group 1) 40 mEq, Intravenous, at 125 mL/hr, Administer over 4 Hours, DAILY, First dose on 11/14/21 at 0600, Until Discontinued, Give if potassium is less than 3.1 on morning labs OR if potassium is 3.1 to 3.4 on morning labs and patient is UNABLE to tolerate oral medications 0738 (See Alternative - Provider: Jung Hill, RN) 0810 (See Alternative - Provider: Priscilla Mcnally RN) sodium chloride 0.9% IV solution 75 mL (COMPLETED) 75 mL, Intravenous, ONCE, 1 dose, On 11/14/21 at 1145, Radiology Procedure 1128 ($$New Bag$$ - Provider: Tonya Guerrero)1145 (Stopped - Provider: Jung Hill RN) Continuous Medication Order 11/13/2021 11/14/2021 11/15/2021 norepinephrine in dextrose 5% (LEVOPHED) 8-5 MG/250ML-% premade IV infusion (CANCELED) 0-1 mcg/kg/min 122 kg Order-specific weight (0-228.75 mL/hr, rounded to 0-228.8 mL/hr), Intravenous, CONTINUOUS, Starting on Rama 11/12/21 at 2100, Until Tue11/13/21 at 0803, Initiate infusion at 0.02 mcg/kg/min. Titrate by 0.01 mcg/kg/min every 1 minute to maintain MAP between 65 and 75 mmHg. Titrate to the lowest rate to achieve target goal. Notify prescriber for inability to achieve goals at maximum dose of ordered range or change in clinical condition. 0000 (Rate/Dose Change - Provider: Jojo Mckenzie RN)0005 (Rate/Dose Change - Provider: Jojo Mckenzie RN)0015 (Rate/Dose Change - Provider: Jojo Mckenzie RN)0046 (Rate/Dose Change - Provider: Jojo Mckenzie RN)0115 (Rate/Dose Change - Provider: Jojo Mckenzie RN)0132 (Rate/Dose Change - Provider: Jojo Mckenzie RN)0148 (Rate/Dose Change - Provider: Jojo Mckenzie RN)0201 (Rate/Dose Change - Provider: Jojo Mckenzie RN)0308 (Rate/Dose Change - Provider: Jojo Mckenzie RN)0408 (Rate/Dose Change - Provider: Jojo Mckenzie RN)0420 (Rate/Dose Change - Provider: Jojo Mckenzie RN)0500 (Stopped - Provider: Jojo Mckenzie RN) sodium chloride 0.9% IV solution (CANCELED) Intravenous, at 125 mL/hr, CONTINUOUS, Starting on Rama 11/12/21 at 2245, Until 11/14/21 at 1227 0405 ($$New Bag$$ - Provider: Jojo Mckenzie RN)1300 ($$New Bag$$ - Provider: Erickson Canseco, KELLY)1800 (Rate/Dose Verify - Provider: Erickson Canseco RN)2051 ($$New Bag$$ - Provider: Marcin Moran RN) 0435 ($$New Bag$$ - Provider: Marcin Moran RN)0840 (Rate/Dose Verify - Provider: Jung Hill RN)1236 (Stopped - Provider: Jung Hill RN) PRN Medication Order 11/13/2021 11/14/2021 11/15/2021 acetaminophen (TYLENOL) tablet 325-650 mg 325-650 mg, Oral, EVERY 4 HOURS NEEDED, Starting on Tue11/13/21 at 0855, Until 11/15/21 at 1419, Mild Pain, Maximum dose of acetaminophen is 4000 mg from all sources in 24 hours. 0817 (Given - Provider: Jung Hill RN)1352 (Given - Provider: Jung Hill RN) 0100 (Given - Provider: Katelyn Breen, KELLY)0736 (Given - Provider: Priscilla Mcnally RN) ipratropium-albuterol (DUONEB) 0.5-2.5 (3) MG/3ML nebulizer solution 3 mL 3 mL, Nebulization, EVERY 4 HOURS NEEDED, Starting on Tue11/13/21 at 1550, Until 11/15/21 at 1419, Shortness of Breath 1558 (Given - Provider: Indira Portillo, JORGE)2359 (Given - Provider: Molly Beatty RCP) 0727 (Given - Provider: Jumana Torres RCP)1928 (Given - Provider: Allie Reyes RRT) 0800 (Given - Provider: Jumana Torres RCP) ketorolac (TORADOL) injection 30 mg (CANCELED) 30 mg, Intravenous, EVERY 6 HOURS NEEDED, Starting on Tue11/13/21 at 0802, Until 11/14/21 at 0830, Moderate Pain 0922 (Given - Provider: Erickson Canseco RN) 0816 (Not Given - Provider: Jung Hill RN - Reason: Patient/family refused) labetalol (NORMODYNE) injection 20 mg 20 mg, Intravenous, EVERY 4 HOURS NEEDED, Starting on 11/13/21 at 0855, Until 11/15/21 at 1419, systolic blood pressure greater than 160, Administration duration: up to 20 mg over 2 minutes. ondansetron 4mg/2ml (ZOFRAN) injection 4 mg 4 mg, Intravenous, EVERY 4 HOURS NEEDED, Starting on Rama 11/12/21 at 2356, Until 11/15/21 at 1419, Nausea / Vomiting oxyCODONE-acetaminophen (PERCOCET) 5-325 MG per tablet 1 tablet (CANCELED) 1 tablet, Oral, EVERY 4 HOURS NEEDED, Starting on Tue11/13/21 at 0516, Until 11/13/21 at 1409, Moderate Pain, 0521 (Given - Provider: Jojo Mckenzie RN) oxyCODONE-acetaminophen (PERCOCET) 5-325 MG per tablet 1 tablet (CANCELED) 1 tablet, Oral, EVERY 4 HOURS NEEDED, Starting on Tue11/13/21 at 1408, Until 11/14/21 at 1357, Severe Pain, 2054 (Given - Provider: Marcin Moran RN) 0454 (Given - Provider: Marcin Moran RN) potassium phosphates 30 mmol in sodium chloride 0.9%, with overfill 535 mL (total volume) IVPB 30 mmol, Intravenous, Administer over 6 Hours, NEEDED, Starting on Tue11/13/21 at 0855, Until 11/15/21 at 1419, Other, If phospate <2.5, give 30mmol, Extravasation Risk Linked Groups Order Group 1: potassium chloride (K-DUR) tablet ER 40 mEqJump to med 40 mEq, Oral, DAILY, First dose on 11/14/21 at 0600, Until Discontinued
Give if potassium is 3.1 to 3.4 on morning labs and patient is able to tolerate oral medications Swallow tablets whole; do not crush, chew, or suck on tablet. Tablet may also be broken in half and each half swallowed separately.
Or potassium chloride 40 mEq in 0.9% sodium chloride 500 ml IVPBJump to med 40 mEq, Intravenous, at 125 mL/hr, Administer over 4 Hours, DAILY, First dose on 11/14/21 at 0600, Until Discontinued
Give if potassium is less than 3.1 on morning labs OR if potassium is 3.1 to 3.4 on morning labs and patient is UNABLE to tolerate oral medications
Scheduled Medication Order 03/05/2022 03/06/2022 03/07/2022 clindamycin (CLEOCIN) 900 mg in normal saline 50 ml premix IVPB (COMPLETED) 900 mg, Intravenous, Administer over 30 Minutes, ONCE, 1 dose, On 03/07/22 at 0200 0210 ($$New Bag$$ - Provider: Klever Zepeda RN)0240 (Stopped - Provider: Klever Zepeda RN) hydroCODone-acetaminophen (NORCO) 5-325 MG per tablet 1 Each Oral, SEE ADMIN INSTRUCTIONS, Starting on 03/07/22 at 0154, Until 03/07/22 at 0524, Provide patient with 4 pack of Acetaminophen/Hydrocodone 325-5 mg, take 1 or 2 tabs by mouth every 4 hours as needed for pain. Nursing to document as GIVEN on the OCT and include comment of patient receipt of the 4 pack. 0243 (Given - Provid er: Klever Zepeda RN - Comment: medication to be used at home by Dr. Cantor.) Scheduled Medication Order 04/19/2022 04/20/2022 04/21/2022 aspirin EC tablet 81 mg 81 mg, Oral, Daily, First dose on Tue04/20/22 at 2100, DO NOT CRUSH OR CHEW. 2107 (Given - Provider: Damion Hernandez, KELLY) 0844 (Given - Provider: Ema Sánchez, KELLY) budesonide-formoteroL (SYMBICORT) 160-4.5 mcg/actuation inhaler 2 puff 2 puff, Inhalation, 2 times daily (RT), First dose on Tue04/20/22 at 2100, SPACER REQUIRED FOR ADMINISTRATION 2229 (Given - Provider: Damion Hernandez RN) 0842 (Given - Provider: Ema Sánchez RN) buprenorphine HCL (SUBUTEX) SL tablet 8 mg 8 mg, Sublingual, 2 times daily, First dose on Tue04/20/22 at 2100, Verify patient has received Patient Med Guide for Subutex., Indication: Treatment of opioid dependence, Is this a continuation of home therapy? Yes 2105 (Given - Provider: Damion Hernandez RN) 843 (Given - Provider: Ema Sánchez, RN) clonazePAM (KLONOPIN) tablet 1 mg (CANCELED) 1 mg, Oral, 4 times daily, First dose on Tue04/20/22 at 2100, CATEGORY D HAZARDOUS DRUG use safe handling precautions. Use reference link to view PPE guidelines. Minimize crushing/splitting only to situations where clinically necessary. 2105 (Given - Provider: Damion Hernandez RN) 843 (Given - Provider: Ema Sánchez RN) diazePAM (VALIUM) tablet 10 mg 10 mg, Oral, Every 8 hours scheduled, First dose on Tue04/21/22 at 1400 gabapentin (NEURONTIN) capsule 300 mg 300 mg, Oral, Every 12 hours scheduled, First dose on Tue04/20/22 at 2100 2105 (Given - Provider: Damion Hernandez RN) 843 (Given - Provider: Ema Sánchez, KELLY) heparin (porcine) injection 5,000 Units 5,000 Units, Subcutaneous, Every 8 hours scheduled, First dose on Tue04/20/22 at 2200, Notify physician if patient refuses. 2105 (Given - Provider: Damion Hernandez RN) 500 (Given - Provider: Damion Hernandez RN) lactated ringers bolus 1,000 mL 1,000 mL, Intravenous, at 983.6 mL/hr, Once, On Tue04/21/22 at 1215, For 1 dose 1215 (Not Given - Provider: Ema Sánchez RN - Reason: Patient/family refused) pantoprazole (PROTONIX) EC tablet 20 mg 20 mg, Oral, Daily, First dose on Tue04/20/22 at 2100, DO NOT CRUSH OR CHEW. 2106 (Given - Provider: Damion Hernandez RN) 843 (Given - Provider: Ema Sánchez, KELLY) piperacillin-tazobactam (ZOSYN) IVPB 3.375 g (premix) 3.375 g, Intravenous, at 12.5 mL/hr, Every 8 hours, First dose on Tue04/20/22 at 2100, VESICANT, Indication: Sepsis of Unknown Origin 2240 (New Bag - Provider: Damion Hernandez RN) 0500 (New Bag - Provider: Damion Hernandez RN)0900 (Stopped - Provider: Ema Sánchez, KELLY) piperacillin-tazobactam (ZOSYN) IVPB 4.5 g (premix) (COMPLETED) 4.5 g, Intravenous, at 200 mL/hr, Once, On Tue04/20/22 at 1455, For 1 dose, VESICANT, Indication: Sepsis of Unknown Origin 1726 (New Bag - Provider: Ema Lima RN) sodium chloride (PF) (NS) flush 5 mL(Linked Group 1) 5 mL, Intravenous, Every 8 hours scheduled, First dose on Tue04/20/22 at 2200, Saline lock 2242 (Given - Provider: Damion Hernandez RN) 0600 (Not Given - Provider: Damion Hernandez RN - Reason: Other - Comment: cont IVF) sodium chloride 0.9% (NS) bolus 1,000 mL (CANCELED) 1,000 mL, Intravenous, at 983.6 mL/hr, Once, On Tue04/20/22 at 1450, For 1 dose 1703 (New Bag - Provider: Ema Lima RN) sodium chloride 0.9% (NS) bolus 2,328 mL (COMPLETED) 2,328 mL (30 mL/kg 77.6 kg Cliff weight), Intravenous, at 1,154.4 mL/hr, Once, On Tue04/20/22 at 1455, For 1 dose 1455 (New Bag - Provider: Bipin Estrada RN) sodium hypochlorite (DAKIN'S (QUARTER-STRENGTH)) 0.125 % external solution Topical, Daily, First dose on Tue04/21/22 at 1200, Pack R medial leg ulcer with Dakin's wet to dry 1200 (Given - Provid er: Ema Sánchez, KELLY) vancomycin (VANCOCIN) 2000 mg in sodium chloride 0.9% 500 mL IVPB (COMPLETED) 2,000 mg, Intravenous, at 250 mL/hr, Once, On Tue04/20/22 at 1520, For 1 dose, Indication: Sepsis of Unknown Origin 1701 (New Bag - Provider: Ema Lima, KELLY) vancomycin (VANCOCIN) 2000 mg in sodium chloride 0.9% 500 mL IVPB 2,000 mg, Intravenous, at 250 mL/hr, Every 36 hours, First dose on Rama 04/22/22 at 0600, Indication: Sepsis of Unknown Origin vancomycin per pharmacy 1 each 1 each, Intravenous, as indicated by pharmacokinetics, Starting on Tue04/20/22 at 1844, Vancomycin IVPB at 20 mg/kg IV X1 then pharmacy to dose, indication: Sepsis, Is this a hemodialysis patient? No Continuous Medication Order 04/19/2022 04/20/2022 04/21/2022 sodium chloride 0.9% (NS) 100 mL/hr, Intravenous, Continuous, Starting on Tue04/20/22 at 1450 1904 (New Bag - Provider: Katie Hammer, RN) 0459 (New Bag - Provider: Damion Hernandez, RN)1200 (Stopped - Provider: Ema Sánchez RN) PRN Medication Order 04/19/2022 04/20/2022 04/21/2022 acetaminophen (TYLENOL) tablet 650 mg 650 mg, Oral, Every 6 hours PRN, headaches, Starting on Tue04/21/22 at 1041 albuterol (PROVENTIL) 2.5 mg /3 mL (0.083 %) nebulizer solution 2.5 mg 2.5 mg, Nebulization, Every 6 hours PRN (RT), wheezing, Starting on Tue04/20/22 at 1852 naloxone (NARCAN) injection 0.1 mg(Linked Group 2) 0.1 mg, Intravenous, As needed, opioid reversal, For respiratory rate less than or equal to 8 per minute., Starting on Tue04/20/22 at 1844, Mix nalOXone (NARCAN) 0.4 mg (1mL) with 9 mL of Normal Saline to total 10 mL. Administer 0.1 mg (2.5mL) IV Push every 2 minutes until respiratory rate is 10 or greater. naloxone (NARCAN) injection 0.4 mg(Linked Group 2) 0.4 mg, Intravenous, As needed, opioid reversal, patient is pulseless, breathless, and unresponsive, Starting on Tue04/20/22 at 1844, Call a code first, then administer naloxone dose undiluted IV Push over 30 seconds. ondansetron (ZOFRAN) injection 4 mg(Linked Group 3) 4 mg, Intravenous, Every 6 hours PRN, nausea, vomiting, Starting on Tue04/20/22 at 1844, Use oral route first, if tolerated. ondansetron (ZOFRAN-ODT) disintegrating tablet 4 mg(Linked Group 3) 4 mg, Oral, Every 6 hours PRN, nausea, vomiting, Starting on Tue04/20/22 at 1844, Use oral route first, if tolerated. Formulation requires tablet remain in sealed package until immediately prior to dose being administered. sodium chloride (PF) (NS) flush 5 mL(Linked Group 4) 5 mL, Intravenous, As needed, line care, Starting on Tue04/20/22 at 1447 sodium chloride (PF) (NS) flush 5 mL(Linked Group 1) 5 mL, Intravenous, As needed, line care, Starting on Tue04/20/22 at 1844 sodium chloride 0.9% (NS)(Linked Group 4) 0-150 mL/hr, Intravenous, As needed, To flush line after IV infusions when no maintenance IV ordered or a compatibility issue. Infuse 20ml at the same rate as the secondary infusion, Starting on Tue04/20/22 at 1447, Run as Primary IV. NOT intended for KVO. sodium chloride 0.9% (NS)(Linked Group 1) 0-150 mL/hr, Intravenous, As needed, To flush line after IV infusions when no maintenance IV ordered or a compatibility issue. Infuse 20ml at the same rate as the secondary infusion, Starting on Tue04/20/22 at 1844, Run as Primary IV. NOT intended for KVO. Linked Groups Order Group 1: Saline lock IV (CANCELED) Routine, Continuous, Starting on Tue04/20/22 at 1845, Until Specified And sodium chloride (PF) (NS) flush 5 mLJump to med 5 mL, Intravenous, As needed, line care, Starting on Tue04/20/22 at 1844 And sodium chloride (PF) (NS) flush 5 mLJump to med 5 mL, Intravenous, Every 8 hours scheduled, First dose on Tue04/20/22 at 2200
Saline lock
And sodium chloride 0.9% (NS)Jump to med 0-150 mL/hr, Intravenous, As needed, To flush line after IV infusions when no maintenance IV ordered or a compatibility issue. Infuse 20ml at the same rate as the secondary infusion, Starting on Tue04/20/22 at 1844
Run as Primary IV. NOT intended for KVO.
Group 2: naloxone (NARCAN) injection 0.1 mgJump to med 0.1 mg, Intravenous, As needed, opioid reversal, For respiratory rate less than or equal to 8 per minute., Starting on Tue04/20/22 at 1844
Mix nalOXone (NARCAN) 0.4 mg (1mL) with 9 mL of Normal Saline to total 10 mL. Administer 0.1 mg (2.5mL) IV Push every 2 minutes until respiratory rate is 10 or greater.
And Notify physician (CANCELED) STAT, Until discontinued, Starting on Tue04/20/22 at 1845, Until Specified
Respiratory rate less than: 8
For respiratory rate less than or equal to 8, notify physician and/or appropriate staff for additional orders. And naloxone (NARCAN) injection 0.4 mgJump to med 0.4 mg, Intravenous, As needed, opioid reversal, patient is pulseless, breathless, and unresponsive, Starting on Tue04/20/22 at 1844
Call a code first, then administer naloxone dose undiluted IV Push over 30 seconds.
Group 3: ondansetron (ZOFRAN-ODT) disintegrating tablet 4 mgJump to med 4 mg, Oral, Every 6 hours PRN, nausea, vomiting, Starting on Tue04/20/22 at 1844
Use oral route first, if tolerated. Formulation requires tablet remain in sealed package until immediately prior to dose being administered.
Or ondansetron (ZOFRAN) injection 4 mgJump to med 4 mg, Intravenous, Every 6 hours PRN, nausea, vomiting, Starting on Tue04/20/22 at 1844
Use oral route first, if tolerated.
Group 4: Insert peripheral IV (COMPLETED) JENNY, Once, On Tue04/20/22 at 1448, For 1 occurrence And Saline lock IV (CANCELED) JENNY, Once, On Tue04/20/22 at 1448, For 1 occurrence And sodium chloride (PF) (NS) flush 5 mLJump to med 5 mL, Intravenous, As needed, line care, Starting on Tue04/20/22 at 1447 And sodium chloride 0.9% (NS)Jump to med 0-150 mL/hr, Intravenous, As needed, To flush line after IV infusions when no maintenance IV ordered or a compatibility issue. Infuse 20ml at the same rate as the secondary infusion, Starting on Tue04/20/22 at 1447
Run as Primary IV. NOT intended for KVO.
Scheduled Medication Order 05/10/2022 05/11/2022 05/12/2022 ipratropium-albuterol (DUONEB) 0.5-2.5 (3) MG/3ML nebulizer solution 3 mL (COMPLETED) 3 mL, Nebulization, ONCE, 1 dose, On Tue05/12/22 at 1945 1916 (Given - Provid er: Latisha Morgan RCP) Scheduled Medication Order 02/25/2023 02/26/2023 02/27/2023 Bacitracin ointment 1 Application (COMPLETED) 1 Application , Topical, ONCE, 1 dose, On Tue02/26/23 at 2215, Apply to left leg wound 2145 (Given - Provider: Bryson Ibarra RN - Comment: Given by SHIPPER AND RECEIVING during wound care) ceFEPIme (MAXIPIME) 2 g in sodium chloride 0.9% (MB PLUS) 100 mL (total volume) IVPB (COMPLETED) 2 g, Intravenous, Administer over 0.5 Hours, ONCE, 1 dose, On Tue02/26/23 at 2330, Infuse STAT doses over 30 minutes. Infuse other doses over 4 hours. 2355 ($$New Bag$$ - Provider: Bryson Ibarra RN) 0049 (Stopped - Provider: Bryson Ibarra RN) ceFEPIme (MAXIPIME) 2 g in sodium chloride 0.9% (MB PLUS) 100 mL (total volume) IVPB 2 g, Intravenous, Administer over 4 Hours, EVERY 8 HOURS NON-STANDARD, First dose on Tue02/27/23 at 0730, Until Discontinued, Infuse STAT doses over 30 minutes. Infuse other doses over 4 hours. Enoxaparin Sodium (LOVENOX) injection 100 mg (COMPLETED) 100 mg, Subcutaneous, ONCE, 1 dose, On 02/26/23 at 2300, Indications: Suspected DVT; no PE 2355 (Given - Provider: Bryson Ibarra, RN) Morphine sulfate (PF) injection 4 mg (COMPLETED) 4 mg, Intravenous, ONCE, 1 dose, On 02/26/23 at 2200 221 (Given - Provider: Bryson Ibarra, RN) Ondansetron 4mg/2ml (ZOFRAN) injection 4 mg (COMPLETED) 4 mg, Intravenous, ONCE, 1 dose, On 02/26/23 at 2200 221 (Given - Provider: Bryson Ibarra, KELLY) Sodium chloride 0.9% IV solution 1,000 mL (COMPLETED) 1,000 mL, Intravenous, at 999 mL/hr, ONCE, 1 dose, On 02/26/23 at 2230, Then 100ml/hr after liter bolus. 2225 ($$New Bag$$ - Provider: Bryson Ibarra, KELLY)235 (Stopped - Provider: Bryson Ibarra, RN) Vancomycin (VANCOCIN) 1,500 mg in Sodium chloride 0.9%, with overfill 565 mL (total volume) IVPB (COMPLETED) 1,500 mg, Intravenous, ONCE, 1 dose, On 02/26/23 at 2200, Infuse at a rate of 1 gram/hour. Extravasation Risk 221 ($$New Bag$$ - Provider: Bryson Ibarra, RN)235 (Stopped - Provider: Bryson Ibarra, RN) Continuous Medication Order 02/25/2023 02/26/2023 02/27/2023 Sodium chloride 0.9% IV solution Intravenous, at 100 mL/hr, CONTINUOUS, Starting on 02/26/23 at 2130, Until 02/27/23 at 0130 235 ($$New Bag$$ - Provider : Bryson Ibarra, KELLY) Scheduled Medication Order 03/14/2023 03/15/2023 03/16/2023 Ampicillin-Sulbactam Sodium (UNASYN) 3 g in sodium chloride 0.9% (MB PLUS) 100 mL (total volume) IVPB (COMPLETED) 3 g, Intravenous, Administer over 30 Minutes, ONCE, 1 dose, On Tue03/16/23 at 1815, Contains a penicillin. 183 ($$New Bag$$ - Provider: Aide Bernal RN)193 (Stopped - Provider: Meron Hill RN) furOSEmide (LASIX) injection 40 mg (COMPLETED) 40 mg, Intravenous, ONCE, 1 dose, On Tue03/16/23 at 1815, Administer by slow IV push at a rate not exceeding 40mg/min 183 (Given - Provid er: Aide Bernal RN) Scheduled Medication Order 03/20/2023 03/21/2023 03/22/2023 Ampicillin-Sulbactam Sodium (UNASYN) 3 g in sodium chloride 0.9% (MB PLUS) 100 mL (total volume) IVPB 3 g, Intravenous, Administer over 30 Minutes, EVERY 6 HOURS, First dose on Rama 03/17/23 at 0000, Until Discontinued, Contains a penicillin. 0559 ($$New Bag$$ - Provider: Gurinder Holt RN)1111 ($$New Bag$$ - Provider: Tania Kahn RN)1742 ($$New Bag$$ - Provider: Tania Kahn RN) 0047 ($$New Bag$$ - Provider: Heaven Shannon RN)0558 ($$New Bag$$ - Provider: Heaven Shannon RN)1235 ($$New Bag$$ - Provider: Antony Santillan RN)1849 ($$New Bag$$ - Provider: Antony Santillan RN)2347 ($$New Bag$$ - Provider: Reshma Dunne RN) 0542 ($$New Bag$$ - Provider: Reshma Dunne RN)1146 ($$New Bag$$ - Provider: Kristi Ko, KELLY)1220 (Stopped - Provider: Kristi Ko RN) Buprenorphine (SUBUTEX) sublingual tablet 8 mg 8 mg, Sublingual, DAILY, First dose on Tue03/20/23 at 0945, Until Discontinued, Place tablet under patient tongue until dissolved. Swallowing reduces bioavailability. 1007 (Given - Provider: Tania Kahn RN) 0833 (Given - Provider: Antony Santillan RN) 0755 (Given - Provider: Kristi Ko, KELLY) collagenase (SANTYL) ointment 1 Application 1 Application, Topical, DAILY, First dose on Tue03/19/23 at 0900, Until Discontinued, Patient may self-administer. Apply to LLE wound 1110 (Given - Provider: Tania Kahn, RN) 0835 (Given - Provider: Antony Santillan, KELLY) 0757 (Not Given - Provider: Kristi Ko RN - Reason: Patient/family refused - Comment: pt doesnt want me to remove dressings) Docusate (COLACE) capsule 100 mg 100 mg, Oral, EVERY 12 HOURS, First dose on Tue03/16/23 at 2315, Until Discontinued 08 (Given - Provider: Tania Kahn RN)2043 (Given - Provider: Heaven Shannon RN) 08 (Given - Provider: Antony Santillan, KELLY)2102 (Given - Provider: Reshma Dunne, KELLY) 075 (Given - Provider: Kristi Ko RN) Enoxaparin Sodium (LOVENOX) injection 40 mg 40 mg, Subcutaneous, DAILY AT BEDTIME, First dose on Tue03/17/23 at 2100, Until Discontinued, Indications: DVT/PE prophylaxis 2044 (Given - Provider: Heaven Shannon RN) 2103 (Given - Provider: Reshma Dunne, KELLY) Fluticasone-Salmeterol (ADVAIR HFA) 115-21 MCG/ACT inhaler 2 puff 2 puff, Inhalation, 2 TIMES DAILY, First dose on Tue03/17/23 at 1900, Until Discontinued 0837 (Given - Provider: Marcelina Orta, HAND BUFFING WHEEL FORMER)193 (Given - Provider: Dee Bowen, HAND BUFFING WHEEL FORMER) 0717 (Given - Provider: Deja Martin, HAND BUFFING WHEEL FORMER)2012 (Not Given - Provider: Carlita Colvin RCP - Reason: Patient/family refused) 0700 (Not Given - Provider: Deborah Bermudez RRT - Reason: Patient/family refused) furOSEmide (LASIX) tablet 40 mg 40 mg, Oral, DAILY, First dose on Tue03/20/23 at 1000, Until Discontinued 1110 (Given - Provider: Tania Kahn RN) 0833 (Given - Provider: Antony Santillan RN) 0755 (Given - Provider: Kristi Ko RN) Gabapentin (NEURONTIN) capsule 400 mg 400 mg, Oral, 4 TIMES DAILY, First dose on Tue03/17/23 at 1700, Until Discontinued 0806 (Given - Provider: Tania Kahn RN)1222 (Given - Provider: Tania Kahn RN)1542 (Given - Provider: Tania Kahn RN)2044 (Given - Provider: Heaven Shannon RN) 0832 (Given - Provider: Antony Santillan RN)1413 (Given - Provider: Antony Santillan RN)1849 (Given - Provider: Antony Santillan RN)2103 (Given - Provider: Reshma Dunne RN) 0755 (Given - Provider: Kristi Ko RN)1146 (Given - Provider: Kristi Ko RN) Magnesium sulfate 2 g/50 ml in sterile water premix IVPB 2 g 50 mL (total volume) 2 g, Intravenous, Administer over 4 Hours, DAILY, First dose on Tue03/18/23 at 0600, Until Discontinued, Give if magnesium is less than 2 on morning labs. Infuse at a rate of 0.5 gm/hour. 0628 (Not Given - Provider: Gurinder Holt RN - Reason: Order Parameters not met) 1413 ($$New Bag$$ - Provider: Antony Santillan RN) 0749 (Not Given - Provider: Kristi Ko RN - Reason: Order Parameters not met) Pantoprazole (PROTONIX) tablet DR 40 mg 40 mg, Oral, DAILY, First dose on Tue03/17/23 at 1445, Until Discontinued, Swallow whole; do not crush or chew., Indications: Inpt Stress Ulcer Prophylaxis 0806 (Given - Provider: Tania Kahn RN) 0833 (Given - Provider: Antony Santillan RN) 0755 (Given - Provider: Kristi Ko RN) Potassium chloride (K-DUR) tablet ER 40 mEq(Linked Group 1) 40 mEq, Oral, DAILY, First dose on Tue03/18/23 at 0600, Until Discontinued, Give if potassium is 3.1 to 3.4 on morning labs and patient is able to tolerate oral medications Swallow tablets whole; do not crush, chew, or suck on tablet. Tablet may also be broken in half and each half swallowed separately. 0628 (Not Given - Provider: Gurinder Holt RN - Reason: Order Parameters not met) 0834 (Not Given - Provider: Antony Santillan RN - Reason: Order Parameters not met) 0749 (Not Given - Provider: Kristi Ko RN - Reason: Order Parameters not met) potassium chloride 40 mEq in 0.9% sodium chloride 500 ml IVPB(Linked Group 1) 40 mEq, Intravenous, at 125 mL/hr, Administer over 4 Hours, DAILY, First dose on Tue03/18/23 at 0600, Until Discontinued, Give if potassium is less than 3.1 on morning labs OR if potassium is 3.1 to 3.4 on morning labs and patient is UNABLE to tolerate oral medications 0628 (See Alternative - Provider: Gurinder Holt RN) 0834 (See Alternative - Provider: Antony Santillan RN) 0749 (See Alternative - Provider: Kristi Ko RN) triamcinolone (KENALOG) 0.1 % cream 1 Application 1 Application, Topical, 2 TIMES DAILY, First dose on Tue03/19/23 at 0900, Until Discontinued, Apply to BLLE 1111 (Given - Provider: Tania Kahn RN)1522 (Not Given - Provider: Tania Kahn RN - Reason: Contraindicated) 0835 (Given - Provider: Antony Santillan RN)1850 (Given - Provider: Antony Santillan RN) 0757 (Not Given - Provider: Kristi Ko RN - Reason: Patient/family refused - Comment: pt doesnt want me to remove dressings) PRN Medication Order 03/20/2023 03/21/2023 03/22/2023 Acetaminophen (TYLENOL) tablet 650 mg 650 mg, Oral, EVERY 4 HOURS NEEDED, Starting on Tue03/16/23 at 2306, Until Tue03/22/23 at 1537, Mild Pain, Oral temp > 100.4 F, bisacodyl (DULCOLAX) suppository 10 mg 10 mg, Rectal, DAILY NEEDED, Starting on Tue03/16/23 at 2303, Until Tue03/22/23 at 1537, Constipation 2nd Line HYDROmorphone (DILAUDID) injection 0.5 mg (CANCELED) 0.5 mg, Intravenous, EVERY 2 HOURS NEEDED, Starting on 03/19/23 at 1140, Until 03/20/23 at 0908, Moderate Pain, Severe Pain 0013 (Given - Provider: Gurinder Holt RN)0218 (Given - Provider: Gurinder Holt RN)0554 (Given - Provider: Gurinder Holt RN)0807 (Given - Provider: Tania Kahn RN) hydrOXYzine HCl (ATARAX) tablet 25 mg 25 mg, Oral, 3 TIMES DAILY NEEDED, Starting on Rama 03/17/23 at 1403, Until Tue03/22/23 at 1537, Anxiety, Nausea / Vomiting, Itching, Insomnia 210 (Given - Provider: Reshma Dunne RN) Ipratropium-albuterol (DUONEB) 0.5-2.5 (3) MG/3ML nebulizer solution 3 mL 3 mL, Nebulization, EVERY 4 HOURS NEEDED, Starting on Rama 03/17/23 at 1100, Until Tue03/22/23 at 1537, Shortness of Breath, Wheezing Ketorolac (TORADOL) injection 15 mg 15 mg, Intravenous, EVERY 6 HOURS NEEDED, Starting on Rama 03/17/23 at 1358, Until Tue03/22/23 at 1357, Moderate Pain, Severe Pain Labetalol (NORMODYNE) injection 20 mg 20 mg, Intravenous, EVERY 6 HOURS NEEDED, Starting on Rama 03/17/23 at 1403, Until Tue03/22/23 at 1537, SBP > 160 mmHg with HR >60 bpm, Administration duration: up to 20 mg over 2 minutes. Telemetry required. 0441 (Given - Provider: Reshma Dunne RN) Melatonin tablet 6 mg 6 mg, Oral, DAILY AT BEDTIME NEEDED, Starting on Rama 03/17/23 at 1403, Until Tue03/22/23 at 1537, Insomnia 210 (Given - Provider: Reshma Dunne RN) Ondansetron 4mg/2ml (ZOFRAN) injection 4 mg 4 mg, Intravenous, EVERY 4 HOURS NEEDED, Starting on Tue03/16/23 at 2302, Until Tue03/22/23 at 1537, Nausea / Vomiting traMADol (ULTRAM) tablet 100 mg 100 mg, Oral, EVERY 4 HOURS NEEDED, Starting on Tue03/17/23 at 2153, Until Tue03/22/23 at 1537, Moderate Pain, Severe Pain 1424 (Given - Provider: Tania Kahn, RN)2043 (Given - Provider: Heaven Shannon, RN) 005 (Given - Provider: Heaven Shannon, RN)141 (Given - Provider: Antony Santillan, KELLY)2102 (Given - Provider: Reshma Dunne, RN) 020 (Given - Provider: Reshma Dunne, RN)0541 (Given - Provider: Reshma Dunne RN) Linked Groups Order Group 1: Potassium chloride (K-DUR) tablet ER 40 mEqJump to med 40 mEq, Oral, DAILY, First dose on Tue03/18/23 at 0600, Until Discontinued
Give if potassium is 3.1 to 3.4 on morning labs and patient is able to tolerate oral medications Swallow tablets whole; do not crush, chew, or suck on tablet. Tablet may also be broken in half and each half swallowed separately.
Or potassium chloride 40 mEq in 0.9% sodium chloride 500 ml IVPBJump to med 40 mEq, Intravenous, at 125 mL/hr, Administer over 4 Hours, DAILY, First dose on Tue03/18/23 at 0600, Until Discontinued
Give if potassium is less than 3.1 on morning labs OR if potassium is 3.1 to 3.4 on morning labs and patient is UNABLE to tolerate oral medications
Scheduled Medication Order 08/09/2023 08/10/2023 08/11/2023 aspirin EC tablet 81 mg 81 mg, Oral, Daily, First dose on Tue07/29/23 at 2100, DO NOT CRUSH OR CHEW. 0822 (Given - Provider: Myriam Martínez LPN) 0838 (Given - Provider: Candie Givens LPN) 0939 (Given - Provider: Cate Collins RN) diltiazem (CARDIZEM CD) 24 hr capsule 240 mg 240 mg, Oral, Daily, First dose on Tue07/29/23 at 2100, DO NOT CRUSH OR CHEW. 0822 (Given - Provider: Myriam Martínez LPN) 0838 (Given - Provider: Candie Givens LPN) 0939 (Given - Provider: Cate Collins RN) gabapentin (NEURONTIN) capsule 400 mg 400 mg, Oral, 4 times daily, First dose on Tue07/29/23 at 2100, Capsule may be opened and contents placed down tube, flush tube with 10ml saline 0824 (Given - Provider: Myriam Martínez LPN)1405 (Given - Provider: Myriam Martínez LPN)1733 (Given - Provider: Myriam Martínez LPN)2139 (Given - Provider: Kika Valle LPN) 0848 (Given - Provider: Candie Givens LPN)1313 (Given - Provider: Candie Givens LPN)1708 (Given - Provider: Candie Givens LPN)2232 (Given - Provider: Rochelle Alexis RN) 0939 (Given - Provider: Cate Collins RN)1400 (Given - Provider: Ctae Collins RN) heparin (porcine) injection 5,000 Units 5,000 Units, Subcutaneous, Every 8 hours scheduled, First dose on Tue07/29/23 at 2200, Notify physician if patient refuses. 0600 (Not Given - Provider: Isabel Alva RN - Reason: Patient/family refused)1400 (Not Given - Provider: Myriam Martínez LPN - Reason: Patient/family refused)2200 (Not Given - Provider: Kika Valle LPN - Reason: Patient/family refused) 0600 (Not Given - Provider: Kika Valle LPN - Reason: Patient/family refused)1400 (Not Given - Provider: Candie Givens LPN - Reason: Patient/family refused)2226 (Not Given - Provider: Rochelle Alexis RN - Reason: Patient/family refused) 0502 (Not Given - Provider: Rochelle Alexis RN - Reason: Patient/family refused)1400 (Not Given - Provider: Cate Collins RN - Reason: Patient/family refused) insulin lispro (AdmeLOG,HumaLOG) injection 0-15 Units 0-15 Units, Subcutaneous, At bedtime, First dose on Tue07/29/23 at 2100, For Nightly Insulin Dose Coverage, use: CORRECTIVE (Only) for BG greater than 300, Nightly CORRECTIVE Dose Method: Specific Corrective Dose, Nightly Specific CORRECTIVE dose (units of insulin): 2, For Downtime Calculator, use: "Insulin SC NIGHTtime" 2100 (Not Given - Provider: Kika Valle LPN - Reason: Patient/family refused) 2100 (Not Given - Provider: Rochelle Alexis RN - Reason: Other - Comment: pt refused/ pt refused BS check) insulin lispro (AdmeLOG,HumaLOG) injection 0-30 Units 0-30 Units, Subcutaneous, 3 times daily before meals, First dose on Tue07/30/23 at 0730, Dose should be given 10-15 minutes before a meal. If poor oral intake, nausea or blood glucose value < 80 before meal, give of the dose (rounded up to nearest unit) immediately after meal completed. If patient skipping meal, hold base prandial dose and continue to use corrective insulin as ordered. Once diet resumed, total base prandial + corrective doses may be given., Prandial Insulin Dosing Method: NO Prandial Dose - Corrective Scale ONLY, Corrective Insulin Regimen (select desired scale to cover BG result): Normal Sensitivity Scale, For Downtime Calculator, use: "Insulin SC MEALtime PREprandial" 0730 (Not Given - Provider: Myriam Martínez LPN - Reason: Patient/family refused)1130 (Not Given - Provider: Myriam Martínez LPN - Reason: Patient/family refused)1630 (Not Given - Provider: Myriam Martínez LPN - Reason: Patient/family refused) 0730 (Not Given - Provider: Candie Givens LPN - Reason: Contraindicated)1130 (Not Given - Provider: Candie Givens LPN - Reason: Patient/family refused - Comment: patient refuses insulin check)1630 (Not Given - Provider: Candie Givens LPN - Reason: Patient/family refused - Comment: refused BS check) 0730 (Not Given - Provider: Cate Collins RN - Reason: Order parameters not met)1130 (Not Given - Provider: Cate Collins RN - Reason: Patient/family refused) meloxicam (MOBIC) tablet 15 mg 15 mg, Oral, Daily, First dose on 07/30/23 at 0900, Give with Food 0822 (Given - Provider: Myriam Martínez LPN) 0838 (Given - Provider: Candie Givens LPN) 0939 (Given - Provider: Cate Collins RN) mometasone-formoterol (DULERA) 200-5 mcg/actuation inhaler 2 puff 2 puff, Inhalation, 2 times daily (RT), First dose on Tue07/29/23 at 2300 0821 (Given - Provider: Myriam Martínez LPN)1999 (Not Given - Provider: Kika Valle LPN - Reason: Patient/family refused) 0837 (Given - Provider: Candie Givens LPN)2226 (Not Given - Provider: Rochelle Alexis RN - Reason: Patient/family refused) 0900 (Not Given - Provider: Cate Collins RN - Reason: Patient/family refused) pantoprazole (PROTONIX) EC tablet 20 mg 20 mg, Oral, Daily, First dose on 07/30/23 at 0900, DO NOT CRUSH OR CHEW. 0822 (Given - Provider: Myriam Martínez LPN) 0838 (Given - Provider: Candie Givens LPN) 0939 (Given - Provider: Cate Collins, KELLY) piperacillin-tazobacta m (ZOSYN) IVPB 3.375 g (premix) 3.375 g, Intravenous, at 12.5 mL/hr, Every 8 hours, First dose on 08/06/23 at 1800, VESICANT, Indication: Skin/Soft Tissue Infection 0134 (New Bag - Provider: Isabel Alva RN)1015 (New Bag - Provider: Myriam Martínez LPN)1735 (New Bag - Provider: Myriam Martínez LPN) 0220 (New Bag - Provider: Kika Valle LPN)0621 (Stopped - Provider: Kika Valle LPN)1029 (New Bag - Provider: Candie Givens LPN)1831 (New Bag - Provider: Bj Parrish RN) 0228 (New Bag - Provider: Rochelle Alexis RN)0942 (New Bag - Provider: Cate Collins, KELLY) predniSONE (DELTASONE) tablet 5 mg 5 mg, Oral, Daily, First dose on Tue07/30/23 at 0900 0822 (Given - Provider: Myriam Martínez LPN) 0838 (Given - Provider: Candie Givens LPN) 0939 (Given - Provider: Cate Collins RN) sodium chloride (PF) (NS) flush 5 mL(Linked Group 1) 5 mL, Intravenous, Every 8 hours scheduled, First dose on Tue07/29/23 at 2200, Saline lock 0600 (Canceled Entry - Provider: Isabel Alva RN)1400 (Given - Provider: Myriam Martínez LPN)2200 (Canceled Entry - Provider: Kika Valle LPN - Comment: infusing) 0600 (Canceled Entry - Provider: Kika Valle LPN - Comment: infusing)1313 (Given - Provider: Candie Givens LPN)2227 (Not Given - Provider: Rochelle Alexis RN - Reason: Other - Comment: infusing) 0502 (Not Given - Provider: Rochelle Alexis RN - Reason: Other - Comment: INFUSING)1400 (Given - Provider: Cate Collins RN) PRN Medication Order 08/09/2023 08/10/2023 08/11/2023 albuterol inhaler 2 puff 2 puff, Inhalation, Every 6 hours PRN (RT), wheezing, Starting on Tue07/29/23 at 2110, SPACER REQUIRED FOR ADMINISTRATION ipratropium-albuteroL (DUO-NEB) 0.5-2.5 mg/3 ml nebulizer solution 3 mL 3 mL, Inhalation, Every 4 hours PRN (RT), shortness of breath, Starting on Tue07/29/23 at 1946 lidocaine 1% (PF) (XYLOCAINE-MPF) 10 mg/mL (1 %) injection 1 mL 1 mL, Injection, Once as needed, debridment, Starting on Tue07/30/23 at 2000, For 1 dose melatonin Tab 5 mg 5 mg, Oral, Nightly PRN, sleep, Starting on Tue08/03/23 at 2101 2212 (Given - Provider: Kika Valle LPN) 2233 (Given - Provider: Rochelle Alexis RN) ondansetron (ZOFRAN) injection 4 mg(Linked Group 2) 4 mg, Intravenous, Every 6 hours PRN, nausea, vomiting, Starting on Tue07/29/23 at 1946, Use oral route first, if tolerated. ondansetron (ZOFRAN-ODT) disintegrating tablet 4 mg(Linked Group 2) 4 mg, Oral, Every 6 hours PRN, nausea, vomiting, Starting on Tue07/29/23 at 1946, Use oral route first, if tolerated. Formulation requires tablet remain in sealed package until immediately prior to dose being administered. oxyCODONE (ROXICODONE) immediate release tablet 10 mg 10 mg, Oral, Every 4 hours PRN, moderate to severe pain, Starting on Tue07/29/23 at 1946 0420 (Not Given - Provider: Isabel Alva RN - Reason: Other - Comment: Pt fell back asleep. Returned with KELLY Woo)0613 (Given - Provider: Isabel Alva RN)1012 (Given - Provider: Myriam Martínez LPN)1405 (Given - Provider: Myriam Martínez LPN)1808 (Given - Provider: Myriam Martínez LPN)2212 (Given - Provider: Kika Valle LPN) 0218 (Given - Provider: Kika Valle LPN)0629 (Given - Provider: Kika Valle LPN)1026 (Given - Provider: Candie Givens LPN)1429 (Given - Provider: Candie Givens LPN)1828 (Given - Provider: Bj Parrish RN)2232 (Given - Provider: Rochelle Alexis RN) 0236 (Given - Provider: Rochelle Alexis RN)0716 (Given - Provider: Cate Collins RN)1116 (Given - Provider: Cate Collins RN)1519 (Given - Provider: Candie Givens LPN) sodium chloride (PF) (NS) flush 5 mL(Linked Group 1) 5 mL, Intravenous, As needed, line care, Starting on Tue07/29/23 at 1946 sodium chloride 0.9% (NS)(Linked Group 1) 0-150 mL/hr, Intravenous, As needed, To flush line after IV infusions when no maintenance IV ordered or a compatibility issue. Infuse 20ml at the same rate as the secondary infusion, Starting on Tue07/29/23 at 1946, Run as Primary IV. NOT intended for KVO. Linked Groups Order Group 1: Saline lock IV (CANCELED) Routine, Continuous, Starting on Tue07/29/23 at 1947, Until Specified And sodium chloride (PF) (NS) flush 5 mLJump to med 5 mL, Intravenous, As needed, line care, Starting on Tue07/29/23 at 1946 And sodium chloride (PF) (NS) flush 5 mLJump to med 5 mL, Intravenous, Every 8 hours scheduled, First dose on Tue07/29/23 at 2200
Saline lock
And sodium chloride 0.9% (NS)Jump to med 0-150 mL/hr, Intravenous, As needed, To flush line after IV infusions when no maintenance IV ordered or a compatibility issue. Infuse 20ml at the same rate as the secondary infusion, Starting on Tue07/29/23 at 1946
Run as Primary IV. NOT intended for KVO.
Group 2: ondansetron (ZOFRAN-ODT) disintegrating tablet 4 mgJump to med 4 mg, Oral, Every 6 hours PRN, nausea, vomiting, Starting on Tue07/29/23 at 1946
Use oral route first, if tolerated. Formulation requires tablet remain in sealed package until immediately prior to dose being administered.
Or ondansetron (ZOFRAN) injection 4 mgJump to med 4 mg, Intravenous, Every 6 hours PRN, nausea, vomiting, Starting on Tue07/29/23 at 1946
Use oral route first, if tolerated.
Scheduled Medication Order 07/03/2024 07/04/2024 07/05/2024 aspirin EC tablet 81 mg 81 mg, Oral, Every morning, First dose on Tue07/03/24 at 0900, DO NOT CRUSH OR CHEW. 0912 (Given - Provider: Yesenia Novoa RN) 0922 (Given - Provider: Antelmo Tate LPN) 0943 (Given - Provider: Antelmo Tate LPN) azithromycin (ZITHROMAX) tablet 500 mg 500 mg, Oral, Daily, First dose on Tue07/03/24 at 0900, For 7 doses, Indication: Respiratory Tract Infection 910 (Given - Provider: Yesenia Novoa RN) 921 (Given - Provider: Antelmo Tate LPN) 0943 (Given - Provider: Antelmo Tate LPN) buprenorphine HCL (SUBUTEX) SL tablet 8 mg 8 mg, Sublingual, 2 times daily, First dose on Tue07/02/24 at 2300, Verify patient has received Patient Med Guide for Subutex., Indication: Treatment of opioid dependence 0008 (Given - Provider: Mackenzie Dickson RN)910 (Given - Provider: Yesenia Novoa RN)2051 (Given - Provider: Mariela Russo RN) 921 (Given - Provider: Antelmo Tate LPN)2009 (Given - Provider: Mariela Russo RN) 943 (Given - Provider: Antelmo Tate LPN) ceFAZolin (ANCEF) IVPB 2 g (premix) 2,000 mg, Intravenous, at 100 mL/hr, Every 8 hours, First dose on Tue07/03/24 at 0100, Indication: Community Acquired Cellulitis 0002 (New Bag - Provider: Mackenzie Dickson RN)0032 (Stopped - Provider: Mackenzie Dickson RN)0925 (New Bag - Provider: Yesenia Novoa RN)1710 (New Bag - Provider: Yesenia Novoa RN) 0017 (Stopped - Provider: Mariela Russo RN)1237 (New Bag - Provider: Antelmo Tate LPN - Comment: No IV access at the time)1700 (Not Given - Provider: Antelmo Tate LPN - Reason: Other - Comment: previous bag due at 9 am, was not hung until 1230, doses too close, pharmacy retimed for 8 pm)2012 (New Bag - Provider: Mariela Russo RN) 0406 (New Bag - Provider: Destiny Washburn LPN)1200 (Not Given - Provider: Antelmo Tate LPN - Reason: Patient/family refused - Comment: patient refused antibiotic) diltiazem (CARDIZEM CD) 24 hr capsule 240 mg 240 mg, Oral, Daily, First dose on Tue07/03/24 at 0900, DO NOT CRUSH OR CHEW. 09 (Given - Provider: Yesenia Novoa RN) 927 (Given - Provider: Antelmo Tate LPN) 09 (Given - Provider: Antelmo Tate LPN) enoxaparin (LOVENOX) syringe 40 mg 40 mg, Subcutaneous, Daily, First dose on Tue07/03/24 at 0900, Administer in abdomen unless otherwise directed by prescriber. Notify physician if patient refuses., Indication: VTE Prophylaxis 911 (Given - Provider: Yesenia Novoa RN) 899 (Not Given - Provider: Antelmo Tate LPN - Reason: Patient/family refused) 899 (Not Given - Provider: Antelmo Tate LPN - Reason: Patient/family refused) furosemide (LASIX) injection 20 mg (COMPLETED) 20 mg, Intravenous, Every 8 hours scheduled, First dose on Tue07/02/24 at 2220, For 2 doses, Administer IV push at 20 mg per minute (doses higher than 100 mg require IVPB) 910 (Given - Provider: Yesenia Novoa RN) furosemide (LASIX) tablet 40 mg 40 mg, Oral, 2 times daily, First dose on Tue07/03/24 at 1800 1705 (Given - Provider: Yesenia Novoa RN) 09 (Given - Provider: Antelmo Tate LPN)175 (Given - Provider: Antelmo Tate LPN) 942 (Given - Provider: Antelmo Tate LPN) gabapentin (NEURONTIN) capsule 400 mg 400 mg, Oral, Nightly, First dose on Tue07/02/24 at 2300, Capsule may be opened and contents placed down tube, flush tube with 10ml saline 2050 (Given - Provider: Mariela Russo, KELLY) 2009 (Given - Provider: Mariela Russo, KELLY) mometasone-formoterol (DULERA) 200-5 mcg/actuation inhaler 2 puff 2 puff, Inhalation, 2 times daily (RT), First dose on Tue07/02/24 at 2300 09 (Given - Provider: Yesenia Novoa RN)2050 (Given - Provider: Mariela Russo, KELLY) 899 (Not Given - Provider: Antelmo Tate LPN - Reason: Patient/family refused)1999 (Not Given - Provider: Mariela Russo RN - Reason: Patient/family refused) 09 (Not Given - Provider: Antelmo Tate LPN - Reason: Patient/family refused) pantoprazole (PROTONIX) EC tablet 20 mg 20 mg, Oral, Daily, First dose on Tue07/03/24 at 0900, DO NOT CRUSH OR CHEW. 0911 (Given - Provider: Yesenia Novoa RN) 09 (Given - Provider: Antelmo Tate LPN) 09 (Given - Provider: Antelmo Tate LPN) predniSONE (DELTASONE) tablet 5 mg 5 mg, Oral, Daily, First dose on Tue07/03/24 at 0900 0911 (Given - Provider: Yesenia Novoa RN) 09 (Given - Provider: Antelmo Tate LPN) 0943 (Given - Provider: Antelmo Tate LPN) QUEtiapine (SEROQUEL) tablet 25 mg (COMPLETED) 25 mg, Oral, Once, On Tue07/03/24 at 1530, For 1 dose, May cause QT interval prolongation. 1705 (Given - Provider: Yesenia Novoa RN) sodium chloride (PF) (NS) flush 5 mL(Linked Group 1) 5 mL, Intravenous, Every 8 hours scheduled, First dose on Tue07/02/24 at 2220, Saline lock 0600 (Canceled Entry - Provider: Rochelle Alexis RN)1400 (Given - Provider: Yesenia Novoa RN)2200 (Given - Provider: Mariela Russo RN) 0600 (Not Given - Provider: Mariela Russo RN - Reason: Patient/family refused)1400 (Not Given - Provider: Antelmo Tate LPN - Reason: Other)2200 (Given - Provider: Mariela Russo RN) 0600 (Canceled Entry - Provider: Destiny Washburn LPN)1400 (Due) spironolactone (ALDACTONE) tablet 50 mg 50 mg, Oral, Daily, First dose on Tue07/03/24 at 0900, CATEGORY C HAZARDOUS DRUG use safe handling precautions. Use reference link to view PPE guidelines. Minimize crushing/splitting only to situations where clinically necessary. 09 (Given - Provider: Yesenia Novoa RN) 921 (Given - Provider: Antelmo Tate LPN) 0944 (Given - Provider: Antelmo Tate LPN) PRN Medication Order 07/03/2024 07/04/2024 07/05/2024 acetaminophen (TYLENOL) tablet 650 mg 650 mg, Oral, Every 4 hours PRN, mild pain, fever 100.4 F or greater, headaches, Starting on Tue07/02/24 at 2217 albuterol (PROVENTIL) 2.5 mg /3 mL (0.083 %) nebulizer solution 2.5 mg 2.5 mg, Nebulization, Every 6 hours PRN, wheezing, Starting on Tue07/02/24 at 2217 albuterol inhaler 2 puff 2 puff, Inhalation, Every 6 hours PRN, wheezing, Starting on Tue07/02/24 at 2217, SPACER REQUIRED FOR ADMINISTRATION aluminum-magnesium hydroxide-simethicone (MAALOX PLUS) 200-200-20 mg/5 mL suspension 30 mL 30 mL, Oral, Every 4 hours PRN, indigestion, Starting on Tue07/02/24 at 2217 ipratropium-albuteroL (DUO-NEB) 0.5-2.5 mg/3 ml nebulizer solution 3 mL 3 mL, Inhalation, Every 6 hours PRN (RT), shortness of breath, wheezing, Starting on Tue07/02/24 at 2217 ketorolac (TORADOL) injection 30 mg 30 mg, Intravenous, Every 6 hours PRN, mild pain, Starting on Tue07/03/24 at 0626, For 48 hours 0637 (Not Given - Provider: Rochelle Alexis RN - Reason: Patient/family refused) melatonin tablet 3 mg 3 mg, Oral, Nightly PRN, Sleep, Starting on Tue07/02/24 at 2217 2257 (Given - Provider: Mariela Russo RN) ondansetron (ZOFRAN) injection 4 mg(Linked Group 2) 4 mg, Intravenous, Every 6 hours PRN, nausea, vomiting, Starting on Tue07/02/24 at 2217, Use oral route first, if tolerated. ondansetron (ZOFRAN-ODT) disintegrating tablet 4 mg(Linked Group 2) 4 mg, Oral, Every 6 hours PRN, nausea, vomiting, Starting on Tue07/02/24 at 2217, Use oral route first, if tolerated. Formulation requires tablet remain in sealed package until immediately prior to dose being administered. senna (SENOKOT) tablet 8.6 mg 8.6 mg (1 tablet), Oral, 2 times daily PRN, constipation, Starting on Tue07/02/24 at 2217 simethicone (MYLICON) chewable tablet 80 mg 80 mg, Oral, Every 6 hours PRN, gas/bloating, Starting on Tue07/02/24 at 2217 sodium chloride (PF) (NS) flush 5 mL(Linked Group 3) 5 mL, Intravenous, As needed, line care, Starting on Tue07/02/24 at 1502 sodium chloride (PF) (NS) flush 5 mL(Linked Group 1) 5 mL, Intravenous, As needed, line care, Starting on Tue07/02/24 at 2217 sodium chloride 0.9% (NS)(Linked Group 3) 0-150 mL/hr, Intravenous, As needed, To flush line after IV infusions when no maintenance IV ordered or a compatibility issue. Infuse 20ml at the same rate as the secondary infusion, Starting on Tue07/02/24 at 1502, Run as Primary IV. NOT intended for KVO. sodium chloride 0.9% (NS)(Linked Group 1) 0-150 mL/hr, Intravenous, As needed, To flush line after IV infusions when no maintenance IV ordered or a compatibility issue. Infuse 20ml at the same rate as the secondary infusion, Starting on Tue07/02/24 at 2217, Run as Primary IV. NOT intended for KVO. Linked Groups Order Group 1: Saline lock IV (CANCELED) Routine, Continuous, Starting on Tue07/02/24 at 2218, Until Specified And sodium chloride (PF) (NS) flush 5 mLJump to med 5 mL, Intravenous, As needed, line care, Starting on Tue07/02/24 at 2217 And sodium chloride (PF) (NS) flush 5 mLJump to med 5 mL, Intravenous, Every 8 hours scheduled, First dose on Tue07/02/24 at 2220, Saline lock And sodium chloride 0.9% (NS)Jump to med 0-150 mL/hr, Intravenous, As needed, To flush line after IV infusions when no maintenance IV ordered or a compatibility issue. Infuse 20ml at the same rate as the secondary infusion, Starting on Tue07/02/24 at 2217, Run as Primary IV. NOT intended for KVO. Group 2: ondansetron (ZOFRAN-ODT) disintegrating tablet 4 mgJump to med 4 mg, Oral, Every 6 hours PRN, nausea, vomiting, Starting on Tue07/02/24 at 2217, Use oral route first, if tolerated. Formulation requires tablet remain in sealed package until immediately prior to dose being administered. Or ondansetron (ZOFRAN) injection 4 mgJump to med 4 mg, Intravenous, Every 6 hours PRN, nausea, vomiting, Starting on Tue07/02/24 at 2217, Use oral route first, if tolerated. Group 3: Insert peripheral IV (COMPLETED) JENNY, Once, On Tue07/02/24 at 1503, For 1 occurrence And Saline lock IV (CANCELED) JENNY, Once, On Tue07/02/24 at 1503, For 1 occurrence And sodium chloride (PF) (NS) flush 5 mLJump to med 5 mL, Intravenous, As needed, line care, Starting on Tue07/02/24 at 1502 And sodium chloride 0.9% (NS)Jump to med 0-150 mL/hr, Intravenous, As needed, To flush line after IV infusions when no maintenance IV ordered or a compatibility issue. Infuse 20ml at the same rate as the secondary infusion, Starting on Tue07/02/24 at 1502, Run as Primary IV. NOT intended for KVO. Scheduled Medication Order 10/22/2024 10/23/2024 10/24/2024 albumin human 25 % solution 25 g (COMPLETED) 25 g, Intravenous, Administer over 30 Minutes, Every 30 min, First dose on Tue10/22/24 at 1345, For 2 doses, Infuse 25 grams albumin over 30 minutes X2 bottles for total of 50 gm over 1 hour Infuse with vented tubing if product is in a glass vial. In [facility] drug library, no longer in fluid library. 1408 (New Bag - Provider: George Faye RN)1455 (New Bag - Provider: George Faye RN) ammonium lactate (LAC-HYDRIN) 12 % lotion Topical, Daily, First dose on Tue10/17/24 at 2230, Apply to bilateral legs. 1343 (Given - Provider: George Faye RN) 0900 (Not Given - Provider: Sally Pleitez RN - Reason: Patient/family refused) 0900 (Given - Provider: Carmine Graham, KELLY) aspirin EC tablet 81 mg 81 mg, Oral, Every morning, First dose on Tue10/16/24 at 0900, DO NOT CRUSH OR CHEW. 0855 (Given - Provider: George Faye RN) 0842 (Given - Provider: Sally Pleitez RN) 0810 (Given - Provider: Carmine Graham, KELLY) buprenorphine HCL (SUBUTEX) SL tablet 4 mg 4 mg, Sublingual, Daily, First dose on Tue10/16/24 at 1800, Verify patient has received Patient Med Guide for Subutex., Indication: Treatment of opioid dependence 1813 (Given - Provider: George Faye RN) 1807 (Given - Provider: Sally Pleitez RN) buprenorphine HCL (SUBUTEX) SL tablet 8 mg 8 mg, Sublingual, 2 times daily, First dose on Tue10/16/24 at 0045, Verify patient has received Patient Med Guide for Subutex., Indication: Treatment of opioid dependence 0855 (Given - Provider: George Faye RN)2135 (Given - Provider: Rochelle Alexis RN) 0842 (Given - Provider: Sally Pleitez RN)2100 (Given - Provider: Marilyn Conway RN) 0812 (Given - Provider: Carmine Graham, KELLY) cholecalciferol (vitamin D3) 1 capsule 1 capsule (50,000 Units), Oral, Weekly, First dose on Tue10/16/24 at 1400 1016 (Given - Provider: Sally Pleitez RN) diltiazem (CARDIZEM CD) 24 hr capsule 240 mg 240 mg, Oral, Daily, First dose on Tue10/16/24 at 0900, DO NOT CRUSH OR CHEW. 0855 (Given - Provider: George Faye RN) 0842 (Given - Provider: Sally Pleitez RN) 0810 (Given - Provider: Carmine GrahamKELLY) docusate sodium (COLACE) capsule 100 mg 100 mg, Oral, 2 times daily, First dose on Tue10/19/24 at 1030, Hold for loose stools DO NOT CRUSH OR CHEW. 0855 (Given - Provider: George Faye RN)2135 (Given - Provider: Rochelle Alexis RN) 0842 (Given - Provider: Sally Pleitez, KELLY)2240 (Given - Provider: Marilyn Conway RN) 0900 (Not Given - Provider: Carmine Graham RN - Reason: Patient/family refused) enoxaparin (LOVENOX) syringe 40 mg 40 mg, Subcutaneous, 2 times daily, First dose (after last modification) on Tue10/19/24 at 2100, Administer in abdomen unless otherwise directed by prescriber. Notify physician if patient refuses., Indication: VTE Prophylaxis 09 (Not Given - Provider: George Faye RN - Reason: Patient/family refused)2133 (Not Given - Provider: Rochelle Alexis RN - Reason: Patient/family refused) 09 (Not Given - Provider: Sally Pleitez RN - Reason: Patient/family refused)2100 (Not Given - Provider: Marilyn Conway RN - Reason: Patient/family refused) 0900 (Not Given - Provider: Carmine Graham RN - Reason: Patient/family refused) furosemide (LASIX) injection 40 mg (CANCELED) 40 mg, Intravenous, 2 times daily, First dose (after last modification) on Rama 10/18/24 at 1800, Administer IV push at 20 mg per minute (doses higher than 100 mg require IVPB) 1140 (Given - Provider: George Faye RN - Comment: pt refused after med was drawn up into syringe. Pt agreeable to take this med now as Dr. Parrish verbal educated this pt at taking lasix.) furosemide (LASIX) injection 40 mg 40 mg, Intravenous, Every 8 hours scheduled, First dose (after last modification) on Tue10/22/24 at 2200, Administer IV push at 20 mg per minute (doses higher than 100 mg require IVPB) 2133 (Not Given - Provider: Rochelle Alexis RN - Reason: Patient/family refused)2212 (Given - Provider: Rochelle Alexis RN - Comment: pt refused, now would like) 0607 (Not Given - Provider: Rochelle Alexis RN - Reason: Patient/family refused)0851 (Given - Provider: Sally Pleitez RN)1400 (Not Given - Provider: Sally Pleitez RN - Reason: Patient/family refused)1526 (Given - Provider: Sally Pleitez RN)2137 (Given - Provider: Marilyn Conway RN) 0611 (Given - Provider: Marilyn Conway RN)1402 (Given - Provider: Carmine Graham RN) gabapentin (NEURONTIN) capsule 600 mg 600 mg, Oral, 4 times daily, First dose on Tue10/16/24 at 0900, Capsule may be opened and contents placed down tube, flush tube with 10ml saline 0855 (Given - Provider: George Faye RN)1454 (Given - Provider: George Faye RN)1813 (Given - Provider: George Faye RN - Comment: retimed by pharmacy)2136 (Given - Provider: Rochelle Alexis RN)2300 (Canceled Entry - Provider: Rochelle Alexis RN - Comment: see other) 0842 (Given - Provider: Sally Pleitez RN)1316 (Given - Provider: Sally Pleitez RN)1709 (Given - Provider: Sally Pleitez RN)2059 (Given - Provider: Marilyn Conway RN) 0810 (Given - Provider: Carmine Graham RN)1401 (Given - Provider: Carmine Graham RN)1700 (Due) lactulose (CHRONULAC) solution 20 g 20 g, Oral, 2 times daily, First dose (after last modification) on Tue10/20/24 at 2100 0855 (Given - Provider: George Faye RN)2136 (Given - Provider: Rochelle Alexis RN) 0842 (Given - Provider: Sally Pleitez RN)2240 (Given - Provider: Marilyn Conway RN) 0810 (Given - Provider: Carmine Graham RN) lidocaine patch 1 patch 1 patch, Transdermal, Administer over 12 Hours, Daily, First dose on Tue10/17/24 at 1045, Apply to midback for 12 hours, then remove patch for 12 hours. 0854 (Patch Applied - Provider: George Faye RN)213 (Patch Removed - Provider: Rochelle Alexis RN) 0841 (Patch Applied - Provider: Sally Pleitez RN - Comment: back)1999 (Patch Removed - Provider: Marilyn Conway RN - Comment: patch not present at time of removal)2099 (Patch Removed - Provider: Marilyn Conway RN) 0812 (Patch Applied - Provider: Carmine Graham RN - Comment: back)174 (Due: Patch Removed - Provider: Discharge Provider, Automatic - Comment: Time automatically adjusted from order being discontinued) melatonin Tab 10 mg 10 mg, Oral, Nightly, First dose on Tue10/16/24 at 2100 2131 (Hold - Provider: Rcohelle Alexis RN - Reason: Patient/family refused - Comment: pt would like at later time)232 (Given - Provider: Rochelle Alexis RN - Comment: given late per pt request) 2240 (Given - Provider: Marilyn Conway RN) mometasone-formoterol (DULERA) 200-5 mcg/actuation inhaler 2 puff 2 puff, Inhalation, 2 times daily (RT), First dose on Tue10/16/24 at 0900 0854 (Given - Provider: George Faye RN)213 (Not Given - Provider: Rochelle Alexis RN - Reason: Patient/family refused)221 (Given - Provider: Rochelle Alexis RN - Comment: pt refused, now would like) 0850 (Given - Provider: Sally Pleitez RN)2099 (Not Given - Provider: Marilyn Conway RN - Reason: Patient/family refused) 0656 (Given - Provider: Marilyn Conway RN - Comment: pt requested early, did not get last night dose)0900 (Not Given - Provider: Carmine Graham RN - Reason: Other - Comment: already given) nicotine (NICODERM CQ) 21 mg/24 hr 1 patch 1 patch, Transdermal, Administer over 24 Hours, Daily, First dose on Tue10/17/24 at 0900, U/P Listed Hazardous Drug. Waste Must Be Disposed in [employer] Waste Container 0805 (Patch Removed - Provider: George Faye RN)0854 (Patch Applied - Provider: George Faye RN)213 (Patch Removed - Provider: Rochelle Alexis RN - Comment: REMOVED PER PT REQUEST) 0842 (Patch Applied - Provider: Sally Pleitez RN)0854 (Canceled Entry - Provider: Rochelle Alexis RN - Comment: see other admin- removed at 2136 per pt request) 0812 (Patch Applied - Provider: Carmine Graham RN)1743 (Due: Patch Removed - Provider: Discharge Provider, Automatic - Comment: Time automatically adjusted from order being discontinued) pantoprazole (PROTONIX) EC tablet 20 mg 20 mg, Oral, Daily, First dose on Tue10/16/24 at 0900, DO NOT CRUSH OR CHEW. 0854 (Given - Provider: George Faye RN) 0842 (Given - Provider: Sally Pleitez RN) 0810 (Given - Provider: Carmine Graham RN) spironolactone (ALDACTONE) tablet 50 mg 50 mg, Oral, Daily, First dose on Tue10/16/24 at 1305, CATEGORY C HAZARDOUS DRUG use safe handling precautions. Use reference link to view PPE guidelines. Minimize crushing/splitting only to situations where clinically necessary. 0855 (Given - Provider: George Faye RN) 0842 (Given - Provider: Sally Pleitez RN) 0810 (Given - Provider: Carmine Graham RN) traZODone (DESYREL) tablet 50 mg 50 mg, Oral, Nightly, First dose on Tue10/16/24 at 2100 2133 (Hold - Provider: Rochelle Alexis RN - Reason: Patient/family refused - Comment: pt would like at later time)2329 (Given - Provider: Rochelle Alexis RN - Comment: given late per pt request) 2240 (Given - Provider: Marilyn Conway RN) PRN Medication Order 10/22/2024 10/23/2024 10/24/2024 acetaminophen (TYLENOL) tablet 650 mg 650 mg, Oral, Every 6 hours PRN, mild pain, Starting on Tue10/16/24 at 0011 0855 (Given - Provider: George Faye, KELLY) 1113 (Given - Provider: Sally Pleitez, KELLY) albuterol (PROVENTIL) 2.5 mg /3 mL (0.083 %) nebulizer solution 2.5 mg 2.5 mg, Inhalation, Every 2 hour PRN (RT), wheezing, shortness of breath, Starting on Tue10/16/24 at 0011 1647 (Given - Provider: Lizzy Mc, [employer]) 0909 (Given - Provider: Heaven Luna, [employer])2103 (Given - Provider: Neha Denney, JORGE) 0658 (Given - Provider: Heaven Luna RRT) magnesium hydroxide (MOM) 400 mg/5 mL suspension 2,400 mg 2,400 mg (30 mL), Oral, Daily PRN, constipation, constipation, Starting on Tue10/16/24 at 0011 methyl salicylate-menthol 15-10 % Crea Topical (Top), Every 8 hours PRN, pain for patients back, Starting on Tue10/21/24 at 1812, Apply to back 0558 (Given - Provider: Payton Daniel, KELLY) 0237 (Given - Provider: Rochelle Alexis, KELLY)1020 (Given - Provider: Sally Pleitez, KELLY)2244 (Given - Provider: Marilyn Conway RN) ondansetron (ZOFRAN) injection 4 mg 4 mg, Intravenous, Every 6 hours PRN, nausea, vomiting, Starting on Tue10/16/24 at 0011 senna-docusate (SENNA-S) 8.6-50 mg per tablet 1 tablet 1 tablet, Oral, 2 times daily PRN, constipation, Starting on Rama 10/18/24 at 1113, Hold for loose stools Do Not Crush or Chew if administering orally due to bitter taste. May be crushed if given via tube. sodium chloride (PF) (NS) flush 5 mL(Linked Group 1) 5 mL, Intravenous, As needed, line care, Starting on 10/15/24 at 1820 2136 (Given - Provider: Rochelle Alexis, RN) sodium chloride 0.9% (NS)(Linked Group 1) 0-150 mL/hr, Intravenous, As needed, To flush line after IV infusions when no maintenance IV ordered or a compatibility issue. Infuse 20ml at the same rate as the secondary infusion, Starting on Tue10/15/24 at 1820, Run as Primary IV. NOT intended for KVO. 1411 (New Bag - Provider: George Faye RN)1440 (Rate/Dose Change - Provider: Rochelle Alexis RN)1445 (Rate/Dose Change - Provider: Rochelle Alexis RN)1453 (Rate/Dose Change - Provider: Rochelle Alexis, RN)1454 (Rate/Dose Verify - Provider: Rochelle Alexis RN)1455 (Paused - Provider: Rochelle Alexis RN)1525 (Restarted - Provider: Rochelle Alexis RN)1549 (Stopped - Provider: Rochelle Alexis RN)1554 (Stopped - Provider: Rochelle Alexis RN) Linked Groups Order Group 1: Insert peripheral IV (COMPLETED) JENNY, Once, On Tue10/15/24 at 1821, For 1 occurrence And Saline lock IV (CANCELED) JENNY, Once, On Tue10/15/24 at 1821, For 1 occurrence And sodium chloride (PF) (NS) flush 5 mLJump to med 5 mL, Intravenous, As needed, line care, Starting on Tue10/15/24 at 1820 And sodium chloride 0.9% (NS)Jump to med 0-150 mL/hr, Intravenous, As needed, To flush line after IV infusions when no maintenance IV ordered or a compatibility issue. Infuse 20ml at the same rate as the secondary infusion, Starting on Tue10/15/24 at 1820, Run as Primary IV. NOT intended for KVO. Scheduled Medication Order 04/03/2025 04/04/2025 04/05/2025 enoxaparin (LOVENOX) syringe 40 mg 40 mg, Subcutaneous, 2 times daily, First dose on Tue04/02/25 at 2100, Administer in abdomen unless otherwise directed by prescriber. Notify physician if patient refuses., Indication: VTE Prophylaxis 0947 (Not Given - Provider: Sheila Franklin RN - Reason: Patient/family refused)2100 (Hold - Provider: Violeta Dillon RN - Reason: Patient/family refused) 0900 (Not Given - Provider: Sally Pleitez RN - Reason: Patient/family refused)2000 (Not Given - Provider: Destiny Washburn LPN - Reason: Patient/family refused) 0900 (Not Given - Provider: Sally Pleitez RN - Reason: Patient/family refused) furosemide (LASIX) tablet 40 mg 40 mg, Oral, Daily, First dose on Tue04/04/25 at 1230 1211 (Given - Provider: Sally Pleitez RN) 0833 (Given - Provider: Sally Pleitez RN) gabapentin (NEURONTIN) capsule 800 mg 800 mg, Oral, Every 6 hours scheduled, First dose on Tue04/02/25 at 1900, Capsule may be opened and contents placed down tube, flush tube with 10ml saline 0550 (Not Given - Provider: Violeta Dillon RN - Reason: Patient/family refused)1200 (Not Given - Provider: Sheila Franklin RN - Reason: Patient/family refused)1641 (Given - Provider: Sheila Franklin RN)1800 (Canceled Entry - Provider: Sheila Franklin RN)2359 (Given - Provider: Violeta Dillon RN) 0558 (Given - Provider: Violeta Dillon RN)1200 (Not Given - Provider: Slaly Pleitez RN - Reason: Patient/family refused)1800 (Not Given - Provider: Sally Pleitez RN - Reason: Patient/family refused) 0036 (Not Given - Provider: Destiny Washburn LPN - Reason: Patient/family refused)0600 (Not Given - Provider: Destiny Washburn LPN - Reason: Patient/family refused)1200 (Not Given - Provider: Sally Pleitez RN - Reason: Patient/family refused) meloxicam (MOBIC) tablet 7.5 mg 7.5 mg, Oral, Daily with breakfast, First dose on Tue04/03/25 at 1000, Give with Food 0947 (Given - Provider: Sheila Franklin RN) 0837 (Given - Provider: Sally Pleitez RN) 0833 (Given - Provider: Sally Pleitez RN) mometasone-formoterol (DULERA) 200-5 mcg/actuation inhaler 2 puff 2 puff, Inhalation, 2 times daily (RT), First dose on Tue04/02/25 at 1999 0948 (Not Given - Provider: Sheila Franklin RN - Reason: Patient/family refused)1999 (Hold - Provider: Violeta Dillon RN - Reason: Patient/family refused) 0837 (Given - Provider: Sally Pleitez RN)2004 (Given - Provider: Destiny Washburn LPN) 1017 (Given - Provider: Sally Pleitez RN) oxyCODONE-acetaminophe n (PERCOCET) 5-325 mg per tablet 1 tablet (COMPLETED) 1 tablet, Oral, Once, On Tue04/03/25 at 1245, For 1 dose 1155 (Given - Provider: Sheila Franklin RN) sodium chloride 0.9% (NS) bolus 1,000 mL (COMPLETED) 1,000 mL, Intravenous, at 983.6 mL/hr, Once, On Tue04/05/25 at 0100, For 1 dose 0101 (New Bag - Provider: Destiny Washburn LPN)0101 (Paused - Provider: Destiny Washburn LPN)0101 (Restarted - Provider: Destiny Washburn LPN)0202 (Rate/Dose Change - Provider: Destiny Washburn LPN)0204 (Stopped - Provider: Destiny Washburn LPN) PRN Medication Order 04/03/2025 04/04/2025 04/05/2025 acetaminophen (TYLENOL) tablet 650 mg 650 mg, Oral, Every 4 hours PRN, mild pain, fever 100.4 F or greater, headaches, Starting on Tue04/02/25 at 1836 0947 (Given - Provider: Sheila Franklin RN) albuterol inhaler 2 puff 2 puff, Inhalation, Every 6 hours PRN, wheezing, Starting on Tue04/02/25 at 1836, SPACER REQUIRED FOR ADMINISTRATION artificial tears (polyethylene glycol 400) 1 % ophthalmic solution 1 drop 1 drop, Both Eyes, As needed, dry eyes, Starting on Tue04/02/25 at 1836 buprenorphine HCL (SUBUTEX) SL tablet 4 mg 4 mg, Sublingual, Every 8 hours PRN, moderate to severe pain, Starting on Tue04/03/25 at 1133, Verify patient has received Patient Med Guide for Subutex., Indication: Pain 1641 (Given - Provider: Sheila Franklin, RN) 0003 (Given - Provider: Violeta Dillon RN)1138 (Given - Provider: Sally Pleitez, KELLY)2004 (Given - Provider: Destiny Washburn LPN) 0833 (Given - Provider: Sally Pleitez RN) ipratropium-albuteroL (DUO-NEB) 0.5-2.5 mg/3 ml nebulizer solution 3 mL 3 mL, Nebulization, 4 times daily PRN, wheezing, shortness of breath, Starting on Tue04/02/25 at 1836 2000 (Given - Provider: Hayden Conway, JORGE) melatonin Tab 5 mg 5 mg, Oral, Nightly PRN, Sleep, Starting on Tue04/02/25 at 1836, If still awake in 1 hour proceed to trazodone (Desyrel) naloxone (NARCAN) injection 0.1 mg(Linked Group 1) 0.1 mg, Intravenous, As needed, opioid reversal, For respiratory rate less than or equal to 8 per minute., Starting on Tue04/02/25 at 1934, Mix nalOXone (NARCAN) 0.4 mg (1mL) with 9 mL of Normal Saline to total 10 mL. Administer 0.1 mg (2.5mL) IV Push every 2 minutes until respiratory rate is 10 or greater. naloxone (NARCAN) injection 0.4 mg(Linked Group 1) 0.4 mg, Intravenous, As needed, opioid reversal, patient is pulseless, breathless, and unresponsive, Starting on Tue04/02/25 at 1934, Call a code first, then administer naloxone dose undiluted IV Push over 30 seconds. ondansetron (ZOFRAN) injection 4 mg(Linked Group 2) 4 mg, Intravenous, Every 6 hours PRN, nausea, vomiting, Starting on Tue04/02/25 at 1836, [] Use oral route first, if tolerated. [] Use as first line antiemetic. ondansetron (ZOFRAN-ODT) disintegrating tablet 4 mg(Linked Group 2) 4 mg, Oral, Every 6 hours PRN, nausea, vomiting, Starting on Tue04/02/25 at 1836, [] Use oral route first, if tolerated. [] Use as first line antiemetic. Formulation requires tablet remain in sealed package until immediately prior to dose being administered. senna-docusate (SENNA-S) 8.6-50 mg per tablet 1 tablet 1 tablet, Oral, Daily PRN, constipation, Starting on Tue04/02/25 at 1836, Use as first line agent for constipation. Do Not Crush or Chew if administering orally due to bitter taste. May be crushed if given via tube. sodium chloride (OCEAN) 0.65 % nasal spray 1 spray 1 spray, Each Nare, As needed, irritation, Starting on Tue04/02/25 at 1836, Upright delivers a spray; Horizontally a stream; Upside down a drop. sodium chloride (PF) (NS) flush 5 mL(Linked Group 3) 5 mL, Intravenous, As needed, line care, Starting on Tue04/02/25 at 1255 sodium chloride 0.9% (NS)(Linked Group 3) 0-150 mL/hr, Intravenous, As needed, To flush line after IV infusions when no maintenance IV ordered or a compatibility issue. Infuse 20ml at the same rate as the secondary infusion, Starting on Tue04/02/25 at 1255, Run as Primary IV. NOT intended for KVO. traZODone (DESYREL) tablet 50 mg 50 mg, Oral, Nightly PRN, sleep, Starting on Tue04/02/25 at 1836, To be administered 1 hour after melatonin if still awake. May repeat x 1 dose in 30 minutes if still awake. Linked Groups Order Group 1: naloxone (NARCAN) injection 0.1 mgJump to med 0.1 mg, Intravenous, As needed, opioid reversal, For respiratory rate less than or equal to 8 per minute., Starting on Tue04/02/25 at 1934, Mix nalOXone (NARCAN) 0.4 mg (1mL) with 9 mL of Normal Saline to total 10 mL. Administer 0.1 mg (2.5mL) IV Push every 2 minutes until respiratory rate is 10 or greater. And Notify physician (CANCELED) STAT, Until discontinued, Starting on Tue04/02/25 at 1935, Until Specified, Respiratory rate less than: 8, For respiratory rate less than or equal to 8, notify physician and/or appropriate staff for additional orders. And naloxone (NARCAN) injection 0.4 mgJump to med 0.4 mg, Intravenous, As needed, opioid reversal, patient is pulseless, breathless, and unresponsive, Starting on Tue04/02/25 at 1934, Call a code first, then administer naloxone dose undiluted IV Push over 30 seconds. Group 2: ondansetron (ZOFRAN-ODT) disintegrating tablet 4 mgJump to med 4 mg, Oral, Every 6 hours PRN, nausea, vomiting, Starting on Tue04/02/25 at 1836, [] Use oral route first, if tolerated. [] Use as first line antiemetic. Formulation requires tablet remain in sealed package until immediately prior to dose being administered. Or ondansetron (ZOFRAN) injection 4 mgJump to med 4 mg, Intravenous, Every 6 hours PRN, nausea, vomiting, Starting on Tue04/02/25 at 1836, [] Use oral route first, if tolerated. [] Use as first line antiemetic. Group 3: Insert peripheral IV (COMPLETED) JENNY, Once, On Tue04/02/25 at 1256, For 1 occurrence And Saline lock IV (CANCELED) JENNY, Once, On Tue04/02/25 at 1256, For 1 occurrence And sodium chloride (PF) (NS) flush 5 mLJump to med 5 mL, Intravenous, As needed, line care, Starting on Tue04/02/25 at 1255 And sodium chloride 0.9% (NS)Jump to med 0-150 mL/hr, Intravenous, As needed, To flush line after IV infusions when no maintenance IV ordered or a compatibility issue. Infuse 20ml at the same rate as the secondary infusion, Starting on Tue04/02/25 at 1255, Run as Primary IV. NOT intended for KVO. Scheduled Medication Order 05/14/2025 05/15/2025 05/16/2025 enoxaparin (LOVENOX) syringe 40 mg 40 mg, Subcutaneous, Daily, First dose on Tue05/12/25 at 0900, Administer in abdomen unless otherwise directed by prescriber. Notify physician if patient refuses., Indication: VTE Prophylaxis 0900 (Not Given - Provider: Sydnie Pedro - Reason: Patient/family refused - Comment: Pt refused, educated on importance of taking and patient states he does not want poked. Primary RN notified) 0900 (Not Given - Provider: Deborah Castellano RN - Reason: Patient/family refused) 0900 (Not Given - Provider: Radha Buckner RN - Reason: Patient/family refused) furosemide (LASIX) injection 40 mg 40 mg, Intravenous, Every 12 hours scheduled, First dose on 05/13/25 at 1800, Administer IV push at 20 mg per minute (doses higher than 100 mg require IVPB) 0800 (Not Given - Provider: Sydnie Pedro - Reason: Patient/family refused - Comment: Patient refuses to take stating that he does not want to "pee all the time". Education provided, pt still refusing primary RN notified.)1800 (Not Given - Provider: Yesenia Novoa RN - Reason: Patient/family refused) 0600 (Not Given - Provider: Sierra Armenta RN - Reason: Patient/family refused)1800 (Not Given - Provider: Deborah Castellano RN - Reason: Loss of IV access) 0600 (Not Given - Provider: Jonathan Weaver LPN - Reason: Loss of IV access - Comment: Pt refuses IV and Lasix) gabapentin (NEURONTIN) capsule 800 mg 800 mg, Oral, Every 8 hours scheduled, First dose on Tue05/12/25 at 0605, Capsule may be opened and contents placed down tube, flush tube with 10ml saline 0829 (Given - Provider: Amna Pedro RN)1531 (Given - Provider: Amna Pedro RN)2314 (Given - Provider: Sierra Armenta RN) 0845 (Given - Provider: Deborah Castellano RN)1658 (Given - Provider: Deborah Castellano RN) 0000 (Not Given - Provider: Jonathan Weaver LPN - Reason: Patient/family refused)0800 (Not Given - Provider: Radha Buckner RN - Reason: Patient/family refused) insulin lispro (AdmeLOG,HumaLOG) injection 0-15 Units(Linked Group 1) 0-15 Units, Subcutaneous, At bedtime, First dose on 05/12/25 at 2100, IF initial POC glucose is greater than 250, administer insulin as directed and re-check POC glucose no sooner than 2 hours after administration. THEN notify provider if POC glucose is still greater than 250., For nightly BG greater than 250, give: Half ( ) Corrective Scale, Nightly Prandial Snack Dosing Method: NO Snack Coverage - Corrective Scale ONLY, Nightly Insulin Dose Corrective Scale: FOLLOW DAYTIME Prandial Corrective Scale, Corrective Insulin Regimen (select desired scale to cover BG result): USUAL Sensitivity Scale, (REMINDER: Nightly Insulin Dose Corrective Scale will be automatically calculated to be of the daytime scale), Dose Reduction Threshold (at meals) for POC Blood Glucose less than or equal to: 80, For Downtime Calculator, use: "Insulin SC NIGHTtime" 2099 (Not Given - Provider: Sierra Armenta RN - Reason: Order parameters not met) 2100 (Not Given - Provider: Jonathan Weaver LPN - Reason: Order parameters not met) insulin lispro (AdmeLOG,HumaLOG) injection 0-30 Units 0-30 Units, Subcutaneous, 3 times daily before meals, First dose on 05/12/25 at 0730, * Dose should be given EITHER: No sooner than 10-15 minutes BEFORE a meal ("Specific Prandial Doses" or "NO Prandial Dose - Corrective Scale ONLY") - OR - Immediately AFTER meal completed ("Carb Counting Ratio"), Prandial Insulin Dosing Method: NO Prandial Dose - Corrective Scale ONLY, Corrective Insulin Regimen (select desired scale to cover BG result): USUAL Sensitivity Scale, Dose Reduction Threshold (at meals) for POC Blood Glucose less than or equal to: 80, For Downtime Calculator, use: "Insulin SC MEALtime PREprandial" 0730 (Not Given - Provider: Sydnie Pedro - Reason: Order parameters not met)1130 (Not Given - Provider: Yesenia Novoa RN - Reason: Patient/family refused)1630 (Not Given - Provider: Yesenia Novoa RN - Reason: Order parameters not met) 0730 (Not Given - Provider: Deborah Castellano RN - Reason: Order parameters not met)1130 (Not Given - Provider: Deborah Castellano RN - Reason: Order parameters not met)1630 (Not Given - Provider: Deborah Castellano RN - Reason: Patient/family refused) 0730 (Not Given - Provider: Radha Buckner RN - Reason: Contraindicated)1130 (Not Given - Provider: Radha Buckner RN - Reason: Contraindicated) melatonin Tab 10 mg 10 mg, Oral, Nightly, First dose (after last modification) on Tue05/14/25 at 2100, Can repeat in 1 hr if ineffective 2011 (Not Given - Provider: Sierra Armenta RN - Reason: Other - Comment: fell on floor)2350 (Given - Provider: Sierra Armenta RN - Comment: previous pills feel on floor) 210 (Given - Provider: Jonathan Weaver LPN) piperacillin-tazobactam (ZOSYN) IVPB 3.375 g (premix) 3.375 g, Intravenous, at 12.5 mL/hr, Every 8 hours, First dose on Tue05/12/25 at 1300, Start infuse 3 hours after loading dose of Zosyn 4.5 gm VESICANT, Indication: Skin/Soft Tissue Infection 0243 (Associate Pump - Provider: Dmitri Dill RN)0426 (Stopped - Provider: Dmitri Dill RN)0832 (New Bag - Provider: Amna Pedro RN)1528 (New Bag - Provider: Amna Pedro RN)2318 (New Bag - Provider: Sierra Armenta RN) 0849 (New Bag - Provider: Deborah Castellano RN)1310 (Stopped - Provider: Deborah Castellano RN)1600 (Not Given - Provider: Deborah Castellano RN - Reason: Patient/family refused) 0000 (Not Given - Provider: Jonathan Weaver LPN - Reason: Loss of IV access - Comment: pt refuses IV)0800 (Not Given - Provider: Radha Buckner RN - Reason: Other - Comment: No IV access, patient refuses an IV) senna-docusate (SENNA-S) 8.6-50 mg per tablet 1 tablet 1 tablet, Oral, 2 times daily, First dose on Tue05/12/25 at 0900, Hold for loose stools. Do Not Crush or Chew if administering orally due to bitter taste. May be crushed if given via tube. 0900 (Not Given - Provider: Sydnie Pedro - Reason: Patient/family refused - Comment: Primary RN notified, pt states he does not "need it". education provided)2008 (Given - Provider: Sierra Armenta RN) 0900 (Not Given - Provider: Deborah Castellano RN - Reason: Patient/family refused)2100 (Not Given - Provider: Jonathan Weaver LPN - Reason: Patient/family refused) 0834 (Given - Provider: Radha Buckner, KELLY) sodium chloride (PF) (NS) flush 5 mL(Linked Group 2) 5 mL, Intravenous, Every 8 hours scheduled, First dose on 05/12/25 at 0605, Saline lock 0600 (Canceled Entry - Provider: Dmitri Dill RN)1400 (Given - Provider: Amna Pedro RN)2200 (Not Given - Provider: Sierra Armenta RN - Reason: Contraindicated) 0600 (Not Given - Provider: Sierra Armenta RN - Reason: Contraindicated)1400 (Given - Provider: Deborah Castellano RN)2200 (Not Given - Provider: Jonathan Weaver LPN - Reason: Loss of IV access) 0600 (Not Given - Provider: Jonathan Weaver LPN - Reason: Loss of IV access)1400 (Not Given - Provider: Radha Buckner RN - Reason: Loss of IV access) vancomycin (VANCOCIN) 1750 mg in sodium chloride 0.9% (NS) 500 mL IVPB 1,750 mg, Intravenous, at 250 mL/hr, Every 12 hours, First dose on 05/12/25 at 1000, Indication: Skin/Soft Tissue Infection 0243 (Stopped - Provider: Dmitri Dill RN)0426 (Stopped - Provider: Dmitri Dill, KELLY)1302 (New Bag - Provider: Amna Pedro, KELLY)2356 (New Bag - Provider: Sierra Armenta RN) 1230 (Not Given - Provider: Deborah Castellano RN - Reason: Loss of IV access)1625 (Stopped - Provider: Deborah Castellano, RN) 0030 (Not Given - Provider: Jonathan Weaver LPN - Reason: Patient/family refused)1230 (Not Given - Provider: Radha Buckner RN - Reason: Other - Comment: Patient refuses, No IV access, Patient refuses to have an IV) PRN Medication Order 05/14/2025 05/15/2025 05/16/2025 acetaminophen (TYLENOL) tablet 650 mg 650 mg, Oral, Every 4 hours PRN, mild pain, fever 100.4 F or greater, headaches, Starting on 05/12/25 at 0604 2255 (Given - Provider: Jonathan Weaver LPN) ipratropium-albuteroL (DUO-NEB) 0.5-2.5 mg/3 ml nebulizer solution 3 mL 3 mL, Nebulization, 4 times daily PRN, wheezing, shortness of breath, Starting on 05/12/25 at 0604 1302 (Given - Provider: Elif Copeland, [employer]) ondansetron (ZOFRAN) injection 4 mg(Linked Group 3) 4 mg, Intravenous, Every 6 hours PRN, nausea, vomiting, Starting on 05/12/25 at 0604, [] Use oral route first, if tolerated. [] Use as first line antiemetic. ondansetron (ZOFRAN-ODT) disintegrating tablet 4 mg(Linked Group 3) 4 mg, Oral, Every 6 hours PRN, nausea, vomiting, Starting on 05/12/25 at 0604, [] Use oral route first, if tolerated. [] Use as first line antiemetic. Formulation requires tablet remain in sealed package until immediately prior to dose being administered. oxyCODONE (ROXICODONE) immediate release tablet 5 mg 5 mg, Oral, Every 4 hours PRN, moderate to severe pain, Starting on 05/12/25 at 0604, 0239 (Given - Provider: Dmitri Dill RN)0718 (Given - Provider: Yesenia Novoa, KELLY)1108 (Given - Provider: Yesenia Novoa RN)1531 (Given - Provider: Amna Pedro RN)2008 (Given - Provider: Sierra Armenta RN) 0213 (Given - Provider: Sierra Armenta RN)0845 (Given - Provider: Deborah Castellano, KELLY)1232 (Given - Provider: Deborah Castellano RN)1658 (Given - Provider: Deborah Castellano RN)2105 (Given - Provider: Jonathan Weaver LPN) 0103 (Given - Provider: Jonathan Weaver LPN)0510 (Given - Provider: Jonathan Weaver LPN)0913 (Given - Provider: Radha Buckner, RN)1336 (Given - Provider: Radha Buckner, RN) sodium chloride (PF) (NS) flush 5 mL(Linked Group 2) 5 mL, Intravenous, As needed, line care, Starting on 05/12/25 at 0604 sodium chloride 0.9% (NS)(Linked Group 2) 0-150 mL/hr, Intravenous, As needed, To flush line after IV infusions when no maintenance IV ordered or a compatibility issue. Infuse 20ml at the same rate as the secondary infusion, Starting on 05/12/25 at 0604, Run as Primary IV. NOT intended for KVO. 0243 (Associate Pump - Provider: Dmitri Dill RN)0444 (Stopped - Provider: Dmitri Dill RN)0831 (New Bag - Provider: Amna Pedro, KELLY)1521 (Canceled Entry - Provider: Amna Pedro, RN) Linked Groups Order Group 1: insulin lispro (AdmeLOG,HumaLOG) injection 0-15 UnitsJump to med 0-15 Units, Subcutaneous, At bedtime, First dose on 05/12/25 at 2100, IF initial POC glucose is greater than 250, administer insulin as directed and re-check POC glucose no sooner than 2 hours after administration. THEN notify provider if POC glucose is still greater than 250., For nightly BG greater than 250, give: Half ( ) Corrective Scale, Nightly Prandial Snack Dosing Method: NO Snack Coverage - Corrective Scale ONLY, Nightly Insulin Dose Corrective Scale: FOLLOW DAYTIME Prandial Corrective Scale, Corrective Insulin Regimen (select desired scale to cover BG result): USUAL Sensitivity Scale, (REMINDER: Nightly Insulin Dose Corrective Scale will be automatically calculated to be of the daytime scale), Dose Reduction Threshold (at meals) for POC Blood Glucose less than or equal to: 80, For Downtime Calculator, use: "Insulin SC NIGHTtime" And Notify physician (CANCELED) Routine, Until discontinued, Starting on 05/12/25 at 0605, Until Specified, Other: IF HS POC Glucose RE-CHECK Greater than 250, If initial HS POC glucose is greater than 250, administer insulin as directed and re-check POC glucose no sooner than 2 hours after administration. IF RE-CHECK POC glucose is still greater than 250, notify provider. Group 2: Saline lock IV (CANCELED) Routine, Continuous, Starting on Tue05/12/25 at 0605, Until Specified And sodium chloride (PF) (NS) flush 5 mLJump to med 5 mL, Intravenous, As needed, line care, Starting on Tue05/12/25 at 0604 And sodium chloride (PF) (NS) flush 5 mLJump to med 5 mL, Intravenous, Every 8 hours scheduled, First dose on Tue05/12/25 at 0605, Saline lock And sodium chloride 0.9% (NS)Jump to med 0-150 mL/hr, Intravenous, As needed, To flush line after IV infusions when no maintenance IV ordered or a compatibility issue. Infuse 20ml at the same rate as the secondary infusion, Starting on Tue05/12/25 at 0604, Run as Primary IV. NOT intended for KVO. Group 3: ondansetron (ZOFRAN-ODT) disintegrating tablet 4 mgJump to med 4 mg, Oral, Every 6 hours PRN, nausea, vomiting, Starting on Tue05/12/25 at 0604, [] Use oral route first, if tolerated. [] Use as first line antiemetic. Formulation requires tablet remain in sealed package until immediately prior to dose being administered. Or ondansetron (ZOFRAN) injection 4 mgJump to med 4 mg, Intravenous, Every 6 hours PRN, nausea, vomiting, Starting on [place] 05/12/25 at 0604, [] Use oral route first, if tolerated. [] Use as first line antiemetic. Care Teams (unrecognized sec tion and content) Land Leasing Examiner Relationship Specialty Start Date End Date Ani Worley APRN-ENVIRONMENTAL EMERGENCIES PLANNER [address] [place] [address] PCP - General Certified Nurse Practitioner 03/30/21 Land Leasing Examiner Relationship Specialty Start Date End Date Ani Worley APRN-ENVIRONMENTAL EMERGENCIES PLANNER [address] [place] [address] PCP - General Certified Nurse Practitioner 03/30/21 Land Leasing Examiner Relationship Specialty Start Date End Date Meir Ani [facility]ST[facility] [address] [place] [address] PCP - General Certified Nurse Practitioner 03/30/21 Land Leasing Examiner Relationship Specialty Start Date End Date Ani Worley APRNENVIRONMENTAL EMERGENCIES PLANNER [address] [place] [address] PCP - General Certified Nurse Practitioner 03/30/21 Land Leasing Examiner Relationship Specialty Start Date End Date Meir Ani [facility] [address] [place] [address] PCP - General Certified Nurse Practitioner 03/30/21 Land Leasing Examiner Relationship Specialty Start Date End Date Ani Worley [facility]NA[facility] [address] [place] [address] PCP - General Certified Nurse Practitioner 03/30/21 Land Leasing Examiner Relationship Specialty Start Date End Date Ani Worley ENVIRONMENTAL EMERGENCIES PLANNER [address] [address] PCP - General Family Medicine 06/03/21 Ani Worley ENVIRONMENTAL EMERGENCIES PLANNER 680 [facility] [address] [place] [address] Family Medicine 06/03/21 Prashanth Hercules MD [facility] Trang Castillo [address] [place] [address] Consulting Physician Addiction Medicine 10/02/21 Land Leasing Examiner Relationship Specialty Start Date End Date Ani Worley APRNENVIRONMENTAL EMERGENCIES PLANNER [address] [place] [address] PCP - General Certified Nurse Practitioner 03/30/21 Land Leasing Examiner Relationship Specialty Start Date End Date Meir Ani SUSTAINABILITY COORDINATOR-ENVIRONMENTAL EMERGENCIES PLANNER 175 [facility] [place] [address] PCP - General Certified Nurse Practitioner 03/30/21 Land Leasing Examiner Relationship Specialty Start Date End Date Meir Ani, SUSTAINABILITY COORDINATOR-ENVIRONMENTAL EMERGENCIES PLANNER 175 [place] [address] PCP - General Certified Nurse Practitioner 03/30/21 Land Leasing Examiner Relationship Specialty Start Date End Date ThomAni donis SUSTAINABILITY COORDINATOR-ENVIRONMENTAL EMERGENCIES PLANNER [address] [place] [address] PCP - General Certified Nurse Practitioner 03/30/21 Land Leasing Examiner Relationship Specialty Start Date End Date Meir Ani SUSTAINABILITY COORDINATOR-ENVIRONMENTAL EMERGENCIES PLANNER 175 [place] [address] PCP - General Certified Nurse Practitioner 03/30/21 Land Leasing Examiner Relationship Specialty Start Date End Date ThomMalik doniski SUSTAINABILITY COORDINATOR-ENVIRONMENTAL EMERGENCIES PLANNER [address] [place] [address] PCP - General Certified Nurse Practitioner 03/30/21 Land Leasing Examiner Relationship Specialty Start Date End Date Meir Ani SUSTAINABILITY COORDINATOR-ENVIRONMENTAL EMERGENCIES PLANNER [address] [facility] [place] [address] PCP - General Certified Nurse Practitioner 03/30/21 Land Leasing Examiner Relationship Specialty Start Date End Date Ani Worley SUSTAINABILITY COORDINATOR-ENVIRONMENTAL EMERGENCIES PLANNER 175 [place] [address] PCP - General Certified Nurse Practitioner 03/30/21 Land Leasing Examiner Relationship Specialty Start Date End Date Ani Worley SUSTAINABILITY COORDINATOR-ENVIRONMENTAL EMERGENCIES PLANNER 175 [place] [address] PCP - General Certified Nurse Practitioner 03/30/21 Land Leasing Examiner Relationship Specialty Start Date End Date Meir Ani SUSTAINABILITY COORDINATOR-ENVIRONMENTAL EMERGENCIES PLANNER [address] [place] [address] PCP - General Certified Nurse Practitioner 03/30/21 Land Leasing Examiner Relationship Specialty Start Date End Date Ani Worley SUSTAINABILITY COORDINATOR-ENVIRONMENTAL EMERGENCIES PLANNER [address] [place] [address] PCP - General Certified Nurse Practitioner 03/30/21 Land Leasing Examiner Relationship Specialty Start Date End Date Meir Ani SUSTAINABILITY COORDINATOR-ENVIRONMENTAL EMERGENCIES PLANNER [address] [place] [address] PCP - General Certified Nurse Practitioner 03/30/21 Land Leasing Examiner Relationship Specialty Start Date End Date Ani Worley SUSTAINABILITY COORDINATOR-ENVIRONMENTAL EMERGENCIES PLANNER [address] [place] [address] PCP - General Certified Nurse Practitioner 03/30/21 Land Leasing Examiner Relationship Specialty Start Date End Date Ani Worley SUSTAINABILITY COORDINATOR-ENVIRONMENTAL EMERGENCIES PLANNER [address] [place] [address] PCP - General Certified Nurse Practitioner 03/30/21 Land Leasing Examiner Relationship Specialty Start Date End Date Ani Worley SUSTAINABILITY COORDINATOR-ENVIRONMENTAL EMERGENCIES PLANNER [address] [place] [address] PCP - General Certified Nurse Practitioner 03/30/21 Land Leasing Examiner Relationship Specialty Start Date End Date Ani Worley SUSTAINABILITY COORDINATOR-ENVIRONMENTAL EMERGENCIES PLANNER [address] [place] [address] PCP - General Certified Nurse Practitioner 03/30/21 Land Leasing Examiner Relationship Specialty Start Date End Date Ani Worley SUSTAINABILITY COORDINATOR-ENVIRONMENTAL EMERGENCIES PLANNER [address] [place] [address] PCP - General Certified Nurse Practitioner 03/30/21 Land Leasing Examiner Relationship Specialty Start Date End Date Ani Worley APRNRODRIGUE 175 [place] [address] PCP - General Certified Nurse Practitioner 03/30/21 Land Leasing Examiner Relationship Specialty Start Date End Date Ani Worley APRNENVIRONMENTAL EMERGENCIES PLANNER [address] [place] [address] PCP - General Certified Nurse Practitioner 03/30/21 Land Leasing Examiner Relationship Specialty Start Date End Date Ani Worley APRN-RODRIGUE [address] [place] [address] PCP - General Certified Nurse Practitioner 03/30/21 Land Leasing Examiner Relationship Specialty Start Date End Date Ani Worley APRNRODRIGUE 175 [facility] [place] [address] PCP - General Certified Nurse Practitioner 03/30/21 Land Leasing Examiner Relationship Specialty Start Date End Date Ani Worley CNP 680 [facility] [address] [place] [address] PCP - General Family Medicine 06/03/21 Ani Worley CNP 680 [facility] [address] [place] [address] Family Medicine 06/03/21 Prashanth Hercules MD [facility] Trang Castillo [address] [place] [address] Consulting Physician Addiction Medicine 10/02/21 Land Leasing Examiner Relationship Specialty Start Date End Date Ani Worley APRN-ENVIRONMENTAL EMERGENCIES PLANNER 175 [facility] [place] [address] PCP - General Certified Nurse Practitioner 03/30/21 Land Leasing Examiner Relationship Specialty Start Date End Date Meir AniMARLENY figueroaN-[facility] 175 [facility] [place] [address] PCP - General Certified Nurse Practitioner 03/30/21 Land Leasing Examiner Relationship Specialty Start Date End Date Meir Ani SUSTAINABILITY COORDINATOR-ENVIRONMENTAL EMERGENCIES PLANNER 175 [facility] [place] [address] PCP - General Certified Nurse Practitioner 03/30/21 Land Leasing Examiner Relationship Specialty Start Date End Date Meir SKYLER Isabel-ENVIRONMENTAL EMERGENCIES PLANNER [address] [place] [address] PCP - General Certified Nurse Practitioner 03/30/21 Land Leasing Examiner Relationship Specialty Start Date End Date Ani Worley CNP 680 [facility] [address] [place] [address] PCP - General Family Medicine 06/03/21 Ani Worley CNP 680 [facility] [address] [place] [address] Family Medicine 06/03/21 Prashanth Hercules MD [facility] Trang Castillo [address] [place] [address] Consulting Physician Addiction Medicine 10/02/21 Land Leasing Examiner Relationship Specialty Start Date End Date Ani Worley CNP 680 [facility] [address] [place] [address] PCP - General Family Medicine 06/03/21 Ani Worley ENVIRONMENTAL EMERGENCIES PLANNER [address] [place] [address] Family Medicine 06/03/21 Land Leasing Examiner Relationship Specialty Start Date End Date Ani Worley CNP [address] [place] [address] PCP - General Family Medicine 06/03/21 Ani Worley ENVIRONMENTAL EMERGENCIES PLANNER [address] [place] [address] Family Medicine 06/03/21 Land Leasing Examiner Relationship Specialty Start Date End Date Ani Worley ENVIRONMENTAL EMERGENCIES PLANNER [address] [place] [address] [place] [address] PCP - General Family Medicine 06/03/21 Ani Worley ENVIRONMENTAL EMERGENCIES PLANNER [address] [place] [address] [place] [address] Family Medicine 06/03/21 Land Leasing Examiner Relationship Specialty Start Date End Date Ani Worley CNP [address] [place] [address] [place] [address] PCP - General Family Medicine 06/03/21 Ani Worley ENVIRONMENTAL EMERGENCIES PLANNER [address] [place] [address] Family Medicine 06/03/21 Land Leasing Examiner Relationship Specialty Start Date End Date Ani Worley CNP [address] [place] [address] PCP - General Family Medicine 06/03/21 Ani Worley CNP [address] [place] [address] Family Medicine 06/03/21 Land Leasing Examiner Relationship Specialty Start Date End Date Ani Worley CNP [address] [place] [address] PCP - General Family Medicine 06/03/21 Ani Worley ENVIRONMENTAL EMERGENCIES PLANNER [address] [place] [address] Family Medicine 06/03/21 Land Leasing Examiner Relationship Specialty Start Date End Date Ani Worley CNP [address] [place] [address] PCP - General Family Medicine 06/03/21 Ani Worley ENVIRONMENTAL EMERGENCIES PLANNER [address] [place] [address] Family Medicine 06/03/21 Land Leasing Examiner Relationship Specialty Start Date End Date Ani Worley CNP [address] [place] [address] PCP - General Family Medicine 06/03/21 Ani Worley, ENVIRONMENTAL EMERGENCIES PLANNER [address] [place] [address] Family Medicine 06/03/21 Land Leasing Examiner Relationship Specialty Start Date End Date Ani Worley CNP [address] [place] [address] PCP - General Family Medicine 06/03/21 Ani Worley CNP [address] [place] [address] Family Medicine 06/03/21 Land Leasing Examiner Relationship Specialty Start Date End Date Ani Worley CNP [address] [place] [address] PCP - General Family Medicine 06/03/21 Ani Worley ENVIRONMENTAL EMERGENCIES PLANNER [address] [place] [address] Family Medicine 06/03/21 Land Leasing Examiner Relationship Specialty Start Date End Date Ani Worley CNP [address] [facility] [place] [address] [place] [address] PCP - General Family Medicine 06/03/21 Ani Worley ENVIRONMENTAL EMERGENCIES PLANNER [address] [place] [address] [place] [address] Family Medicine 06/03/21 Land Leasing Examiner Relationship Specialty Start Date End Date Ani Worley CNP [address] [facility] [place] [address] [place] [address] PCP - General Family Medicine 06/03/21 Ani Worley CNP [address] [place] [address] Family Medicine 06/03/21 Land Leasing Examiner Relationship Specialty Start Date End Date Ani Worley CNP [address] [place] [address] PCP - General Family Medicine 12/22/23 Ani Worley CNP 680 [facility] [address] [place] [address] Family Medicine 06/03/21 Ani Worley CNP [address] [facility] [address] [place] [address] Referring Physician Family Medicine 12/22/23 Land Leasing Examiner Relationship Specialty Start Date End Date Ani Worley CNP [address] [facility] [address] [place] [address] PCP - General Family Medicine 12/22/23 Ani Worley CNP [address] [facility] [address] [place] [address] Family Medicine 06/03/21 Ani Worley CNP [address] [facility] [address] [place] [address] Referring Physician Family Medicine 12/22/23 Land Leasing Examiner Relationship Specialty Start Date End Date Ani Worley CNP [address] [facility] [address] [place] [address] PCP - General Family Medicine 12/22/23 Ani Worley CNP [address] [facility] [address] [place] [address] Family Medicine 06/03/21 Ani Worley CNP [address] [facility] [address] [place] [address] Referring Physician Family Medicine 12/22/23 Land Leasing Examiner Relationship Specialty Start Date End Date Ani Worley CNP [address] [facility] [address] [place] [address] PCP - General Family Medicine 12/22/23 Ani Worley CNP [address] [place] [address] Family Medicine 06/03/21 Ani Worley CNP [address] [place] [address] Referring Physician Family Medicine 12/22/23 Land Leasing Examiner Relationship Specialty Start Date End Date Ani Worley CNP [address] [place] [address] [place] [address] PCP - General Family Medicine 12/22/23 Ani Worley CNP [address] [place] [address] [place] [address] Family Medicine 06/03/21 Ani Worley CNP [address] [place] [address] [place] [address] Referring Physician Family Medicine 12/22/23 Land Leasing Examiner Relationship Specialty Start Date End Date Ani Worley CNP [address] [place] [address] [place] [address] PCP - General Family Medicine 12/22/23 Ani Worley CNP [address] [place] [address] Family Medicine 06/03/21 Ani Worley CNP [address] [place] [address] Referring Physician Family Medicine 12/22/23 Land Leasing Examiner Relationship Specialty Start Date End Date Ani Worley CNP [address] [place] [address] PCP - General Family Medicine 12/22/23 Ani Worley CNP [address] [place] [address] Family Medicine 06/03/21 Ani Worley CNP [address] [place] [address] Referring Physician Family Medicine 12/22/23 Land Leasing Examiner Relationship Specialty Start Date End Date Ani Worley CNP [address] [place] [address] PCP - General Family Medicine 12/22/23 Ani Worley [employer]MENT[employer]CI[employer] PL[employer]NER [address] [place] [address] Family Medicine 06/03/21 Ani Worley CNP [address] [place] [address] Referring Physician Family Medicine 12/22/23 Land Leasing Examiner Relationship Specialty Start Date End Date Ani Worley CNP [address] [place] [address] PCP - General Family Medicine 12/22/23 Ani Worley ENVIRONMENTAL EMERGENCI[employer] 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 [address] [place] [address] Family Medicine 06/03/21 Ani Worley CNP [address] [place] [address] Referring Physician Family Medicine 12/22/23 Land Leasing Examiner Relationship Specialty Start Date End Date Ani Worley CNP [address] [place] [address] PCP - General Family Medicine 12/22/23 Ani Worley CNP [address] [place] [address] Family Medicine 06/03/21 Ani Worley CNP [address] [place] [address] [place] [address] Referring Physician Family Medicine 12/22/23 Land Leasing Examiner Relationship Specialty Start Date End Date Ani Worley CNP [address] [place] [address] [place] [address] PCP - General Family Medicine 12/22/23 Ani Worley CNP [address] [facility] [place] [address] [place] [address] Family Medicine 06/03/21 Ani Worley CNP [address] [facility] [place] [address] [place] [address] Referring Physician Family Medicine 12/22/23 Cecilia Gonzales DPM [address] [place] [address] [address] Consulting Physician Podiatry 01/02/25 Land Leasing Examiner Relationship Specialty Start Date End Date Ani Worley CNP [address] [address] PCP - General Family Medicine 12/22/23 Ani Worley CNP [address] [address] Family Medicine 06/03/21 Ani Worley CNP [address] [address] Referring Physician Family Medicine 12/22/23 Cecilia Gonzales DPM [address] [place] [address] Consulting Physician Podiatry 01/02/25 Land Leasing Examiner Relationship Specialty Start Date End Date Ani Worley CNP [address] [address] PCP - General Family Medicine 12/22/23 Ani Worley CNP [address] [address] Family Medicine 06/03/21 Ani Worley CNP [address] [address] Referring Physician Family Medicine 12/22/23 Cecilia Gonzales DPM [address] [place] [address] Consulting Physician Podiatry 01/02/25 Land Leasing Examiner Relationship Specialty Start Date End Date Ani Worley CNP [address] [address] PCP - General Family Medicine 12/22/23 Ani Worley CNP [address] [facility] [address] [place] [address] Family Medicine 06/03/21 Ani Worley CNP [address] [facility] [address] [place] [address] Referring Physician Family Medicine 12/22/23 Cecilia Gonzales DPM [address] [place] [address] Consulting Physician Podiatry 01/02/25 Land Leasing Examiner Relationship Specialty Start Date End Date Ani Worley CNP [address] [address] PCP - General Family Medicine 12/22/23 Ani Worley CNP [address] [address] Family Medicine 06/03/21 Ani Worley CNP [address] [address] Referring Physician Family Medicine 12/22/23 Cecilia Gonzales DPM [address] [place] [address] Consulting Physician Podiatry 01/02/25 Land Leasing Examiner Relationship Specialty Start Date End Date Ani Worley CNP [address] [facility] [address] [place] [address] PCP - General Family Medicine 12/22/23 Ani Worley CNP [address] [facility] [address] [place], [place] [address] Family Medicine 06/03/21 Ani Worley CNP [address] [facility] [address] [place] [address] Referring Physician Family Medicine 12/22/23 Cecilia Gonzales DPM [address] [place] [address] Consulting Physician Podiatry 01/02/25 Land Leasing Examiner Relationship Specialty Start Date End Date Ani Worley CNP [address] [address] PCP - General Family Medicine 12/22/23 Ani Worley CNP [address] [address] Family Medicine 06/03/21 Ani Worley CNP [address] [address] Referring Physician Family Medicine 12/22/23 Cecilia Gonzales DPM [address] [place] [phone] Consulting Physician Podiatry 01/02/25 Land Leasing Examiner Relationship Specialty Start Date End Date Ani Worley CNP [address] [facility] [address] [place] [address] PCP - General Family Medicine 12/22/23 Ani Worley CNP [address] [facility] [address] [place] [address] Family Medicine 06/03/21 Ani Worley CNP [address] [facility] [address] [place] [address] Referring Physician Family Medicine 12/22/23 Cecilia Gonzales DPM [address] [place] [address] Consulting Physician Podiatry 01/02/25 Land Leasing Examiner Relationship Specialty Start Date End Date Ani Worley CNP [address] [facility] [address] [place] [address] PCP - General Family Medicine 12/22/23 Ani Worley CNP [address] [facility] [address] [place] [address] Family Medicine 06/03/21 Ani Worley CNP [address] [facility] [address] [place] [address] Referring Physician Family Medicine 12/22/23 Cecilia Gonzales DPM [address] [place] [address] Consulting Physician Podiatry 01/02/25 Land Leasing Examiner Relationship Specialty Start Date End Date Ani Worley CNP PCP - General Family Medicine 12/22/23 Ani Worley CNP Family Medicine 06/03/21 Ani Worley CNP Referring Physician Family Medicine 12/22/23 Cecilia Gonzales DPM [address] [place] [phone] Consulting Physician Podiatry 01/02/25 Land Leasing Examiner Relationship Specialty Start Date End Date Ani Worley CNP PCP - General Family Medicine 12/22/23 Ani Worley CNP Family Medicine 06/03/21 Ani Worley ENV[employer]ONMENTAL EM[employer]GENCI[employer] PLANNER Referring Physician Family Medicine 12/22/23 Cecilia Gonzales DPM [address] [place] [phone] Consulting Physician Podiatry 01/02/25 Land Leasing Examiner Relationship Specialty Start Date End Date Ani Worley CNP [address] [facility] [place] [address] PCP - General Family Medicine 12/22/23 Ani Worley ENVIRONMENTAL EMERGENCIES PLANNER [address] [facility] [place] [address] Family Medicine 06/03/21 Ani Worley CNP [address] [place] [address] Referring Physician Family Medicine 12/22/23 Cecilia Gonzales DPM [address] [place], [place] [address] [address] Consulting Physician Podiatry 01/02/25 FOR RECORDS PERTAINING TO PATIENTS WHO ARE OR HAVE BEEN ENROLLED IN A CHEMICAL DEPENDENCY/SUBSTANCEABUSE PROGRAM, SOME INFORMATION MAY BE OMITTED. This clinical summary was aggregated from multiple sources. Caution should be exercised in using it in the provision of clinical care. This summary normalizes information from multiple sources, and as a consequence, information in this document may materially change the coding, format and clinical context of patient data. In addition, data may be omitted in some cases. CLINICAL DECISIONS SHOULD BE BASED ON THE PRIMARY CLINICAL RECORDS. [employer] [facility]. provides no warranty or guarantee of the accuracy or completeness of information in this document.
[2025-07-25 09:33] LABS: Hematocrit 28.2 % (40-54); Hemoglobin 8.3 g/dL (13.0-16.5); Mean Corp Hgb Conc 29.4 g/dL (32-36); Mean Corpuscular Volume 70.5 fL (80-94); POSITIVE COUNT YES; Platelet Count 95 K/mm3 (150-450); RBC Distribution Width CV 18.9 % (11.6-14.6); RBC Distribution Width SD 47.7 fl (35.1-43.9); Red Blood Count 4.00 M/mm3 (4.6-6.2); White Blood Count 1.5 K/mm3 (4.4-11.0)
[2025-07-25 09:42] LABS: Scan Indicated on CBC? Y/N YES- FLAGS NOTED
[2025-07-25 09:50] LABS: Anion Gap 7 (5-15); BUN 13 mg/dL (4-19); BUN/Creat Ratio 23.5 RATIO (10-20); Calcium,Total 8.7 mg/dL (7.6-11.0); Carbon Dioxide 34.7 mmol/L (21.0-32.0); Chloride 95 mmol/L (98-108); Glucose 106 mg/dL (70-99); Potassium 3.9 mmol/L (3.3-5.1)
[2025-07-25 10:04] LABS: Differential Comment SCANNED
== END ==
LOC: OLS.ACW100 05:00
PROVIDERS: Visit Provider Family Medicine
DX: K74.69 Other cirrhosis of liver (principal); J44.9 Chronic obstructive pulmonary disease, unspecified; B19.20 Unspecified viral hepatitis C without hepatic coma; E11.9 Type 2 diabetes mellitus without complications; R18.8 Other ascites
CPT/HCPCS: 36415; 80048; 85027

== ENCOUNTER → 2025-07-29 | Outpatient (REF) | payer MEDICARE, SELFPAY ==
--- OUTSIDE RECORDS SUMMARY | 2025-07-29 04:27 | XMS RPT_ITS | CCD ---
Author Organization [facility] Care Team Providers Care Emergency Veterinary Technician Name Role Phone Norman Baldwin Unavailable Brar, [...] Unavailable Unavailable Exten, Sb L. Unavailable Unavailable [place], Riaz S Unavailable Unavailable John, Riaz S [...] Unavailable Exten, Sb L. Unavailable Unavailable NicolasaNorman agy Primary Care Provider Palmer Givens Primary Care Provider Palmer Givens Primary Care Provider [place], Mari Anali. Primary Care Provider SECOR, MARI Anali Primary Care Unavailable PRASHANTH ARMENTA Attending Unavailable SECOR, MARI Anali Primary Care Unavailable ANYA GIVENS Attending Unavailable SECOR, MARI Briones Primary Care Unavailable GHAZARIAN, TEQUILA Admitting Unavailable GHBLOSSOMARIAN TEQUILA Attending Unavailable [place], Mari Anali. Primary Care Provider [place], Mari Anali Primary Care Provider [place], Mari Anali. Primary Care Provider Sofía Dukes Unavailable SOFÍA DUKES Referring Unavailab le SECMARY, MARI Anali. Primary Care Unavailable UMBERTO BARNETT Attending Unavailable SECOR, MARI Cary Primary Care Unavailable [place], Mari Anali. Primary Care Provider [place], Mari Anali. Primary Care Provider [place], Mari Anali. Primary Care Provider VENANCIO QUIROS Consulting Unavailab le SECMARY, MARI Anali. Primary Care Unavailable VENANCIO QUIROS Admitting Unavailab le [facility] Attending Un available RACHELLE PRINCE Consulting Unavaila LIZ Tiwari Consulting Unavailable MAYUR HERNANDEZ Consulting Unavailable Sofía Dukes Unavailable [phone] [place], Mari Luis Daniel Unavailable Unavailable Primary Care Provider UnavailDIEGO Pena Attending Unavailable Ani Worley CNP Primary Care Provider MATEO, BLANCA PINEDA Admitting Unavaila ble [facility] Consulting Susi glasgow [facility] Attending ANI Greene Primary Care Unavailable PRASHANTH HERCULES Consulting Unavailable RACHELLE PRINCE Consulting Unavaila YOLY Ruiz Consulting Unavaila phoebe Worley APRN-Ani HUSAIN Primary Care Provider Ani Worley CNP Primary Care Provider [place] [employer], Ani M Unavailable Prashanth Hercules MD Unavailable ZHAO ABRAHAM Attending Unavailable [place] [facility], Ani Primary Care Provider [place] [facility], Ani Primary Care Provider [place] [facility], Ani Primary Care Provider [place] [employer], Ani M Unavailable [phone] Prashanth Hercules MD Unavailable [phone] DELANY, ANI Primary Care Unavailable SELF, SELF [...] Referring Unavailable KRISTI BRYAN Attending Unavailable [facility], [facility] Primary Care Unavailable RAMON, BRIDGET Attending Unavailable RAMON, BRIDGET Referring Unavailable DEL[place], [facility] Primary Care Unavailable RAMON, BRIDGET Attending Unavailable [...] Referring Unavailable HAY, AMI Attending Unavailable DEL[place], [facility] Primary Care Unavailable JACKELIN, NATHAN F Referring Unavailable RAMON, BRIDGET Attending Unavailable DELANY, ANI Primary Care Unavailable SELF, SELF Referring Unavailable HAY, AMI Attending Unavailable DELANY, ANI Primary Care Unavailable SELF, SELF Referring Unavailable HAY, AMI Attending Unavailable DELANY, ANI Primary Care Unavailable SELF, SELF Referring Unavailable HAY, AMI Attending Unavailable [place] Ani HUSAIN Primary Care Provider Ani Worley CNP Unavailable [phone] HAY, AMI L Attending Unavailable DELANY, ANI Primary Care Unavailable HAY, AMI L Referring Unavailable DELANY, ANI Primary Care Unavailable TYSAHWN RODRÍGUEZ Admitting Unavailable TYSHAWN RODRÍGUEZ Attending Unavailable TYSHAWN RODRÍGUEZ Referring Unavailable CONSULT, INFECTIOUS DISEASE Consulting Unav [...] Unavailable DELANY, ANI Primary Care Unavailable [place] [employer], Ani M Primary Care Provider [place] [employer], Ani M Unavailable DELANY, ANI M Referring [...] Attending Unavailable Cecilia Gonzales DPM Sabry Unavailable Janet SHI Cecilia Sabry Unavailable [phone] TAWANDA MORGAN Attending Unavailable DELANY, ANI M Primary Care Unavailable JACKSON AVITIA Attending Unavailab le THOMANY, ANI M Primary Care Unavailable [place]any RODRIGUE, Ani M Primary Care Provider [place] [employer], Ani M Unavailable [place] [employer], Ani M Unavailable [place] [employer], Ani M Primary Care Provider [place] [employer], Ani M Unavailable [place] [employer], Ani M Unavailable DELANY, ANI M Primary [...] Care Unavailable SOFÍA DUKES Attending Unavailab le JANET, CECILIA MAYFIELDRY Admitting Unavailable JANET, CECILIA MAYFIELDRY [...] Primary Care Unavailable CAMERON VARGAS Attending Unavailable [facility] Consulting Unavai pee WORLEY, ANI Burton Primary Care Unavailable ARBEN PARRISH Admitting Unavailable ACOSTA VALLEJO Admitting Unavailable SOFÍA DUKES Consulting Unavailab le MEIR, ANI Burton Primary Care Unavailable ARBEN PARRISH Attending Unavailable KINZA GARRETT Consulting Unavaila ble PRASHANTH HERCULES Consulting Unavailable REMA GENTILE Consulting Unavailable [facility] Consulting UnaKANCHAN Correia Attending Unavailable MEIR, ANI M Primary Care Unavailable SHANAE NUNEZ Admitting Unavailable MEIR, ANI M Primary Care Unavailable PRASHANTH HERCULES Consulting Unavailable STEPHENIRAJ, KRYS Admitting Unavailable LUPE PARRISH Attending Unavailable CAROLYN CASIANO Attending UnavailSOFÍA Mahan Consulting Unavailab le MEIR, ANI M Primary Care Unavailable CARMEN CHARLES Admitting Unavai lable [facility] Consulting SOFÍA Wilcox Attending Unavailab SOFÍA Martin Admitting Unavailab le MEIR, ANI M Primary Care Unavailable JANET, CECILIA SABRY Referring Unavailable CECILIA GONZALES Attending Unavailable ANI WORLEY Primary Care Unavailable CECILIA GONZALES Admitting Unavailable CECILIA GONZALES Attending Unavailable ANI WORLEY Primary Care Unavailable Allergies Allergy Classification Reported Allergen(s) Allergy Type Date of Onset Reaction(s) Facility (14 sources) Naloxone; Translations: [NALOXONE] Drug Allergy 05-09-2025 Unknown [facility] Medications Current Medications Medication Drug Class(es) [...] Tablet Sublingual Sublingual 2.5 TABS DAILY-ICD10 CODE [id number] TO NALOXONE. 03/28/2024 8:00:00 05/18/2024 7:48:00 Aborted Start: 02-22-2024 End: 03-27-2024 Buprenorphine HCl Sublingual Tablet Sublingual 8 MG 2 tablet Tablet Sublingual Sublingual 2.5 TABS DAILY-ICD10 CODE [id number] TO NALOXONE. 02/22/2024 8:00:00 03/27/2024 9:35:00 Aborted [...] Start: 06-09-2023 naloxone (NARC AN) 4 mg/actuation [place] Administer 1 spray into one nostril for known or suspected opioid overdose. If patient worsens or does not respond, may repeat in 2-3 minutes. . 2 each 1 06/09/2023 Active Start: 06-09-2023 Start: 11-12-2021 End: 11-12-2021 naloxone (NARCAN) injection 0.4 mg naloxone (NARCAN) 4 mg/actua tion [place] (20 sources) Start: 05-16-2025 naloxone (NARC AN) 4 mg/actuation [place] Administer 1 spray into one nostril for known or suspected opioid overdose. If patient worsens or does not respond, may repeat in 2-3 minutes. . 2 each 05/16/2025 Active Start: 05-16-2025 naloxone (NARC AN) 4 mg/actuation [place] Administer 1 spray into one nostril for known or suspected opioid overdose. If patient worsens or does not respond, may repeat in 2-3 minutes. . 2 each 05/16/2025 Start: 06-09-2023 naloxone (NARC AN) 4 mg/actuation [place] Administer 1 spray into one nostril for known or suspected opioid overdose. If patient worsens or does not respond, may repeat in 2-3 minutes. . 2 each 1 06/09/2023 Suspended Start: 06-09-2023 naloxone (NARC AN) 4 mg/actuation [place] Administer 1 spray into one nostril for known or suspected opioid overdose. If patient worsens or does not respond, may repeat in 2-3 minutes. . 2 each 1 06/09/2023 Active Start: 06-09-2023 naloxone (NARC AN) 4 mg/actuation [place] Administer 1 spray into one nostril for [...] tablet 1 tablet 20 ml albumin human, longterm 250 mg/ml injection (3 sources) Human Serum Albumin Start: 10-22-2024 End: 10-22-2024 25 g, Intravenous, Administer over 30 Minutes, Every 30 min, First dose on Tue10/22/24 at 1345, For 2 doses, Infuse 25 grams albumin over 30 minutes X2 bottles for total of 50 gm over 1 hour Infuse with vented tubing if product is in a glass vial. In [employer] drug library, no longer in fluid library. Start: 11-12-2021 End: 11-13-2021 albumin human 25 % injection 50 g [id number] actuat albuter ol 0.09 mg/actuat metered [...] weekly for 3 weeks. Follow-up with the [facility] weekly And Dr. Garrett in 3 [...] CHEW. Start: 05-28-2024 take 1 capsule by [facility] every twenty-four hours as needed for constipation Colace Oral Capsule 100 MG 1 capsule Capsule Oral Give 1 capsule by mouth every 24 hours as needed for constipation 05/28/2024 23:00:00 Start: 03-16-2023 End: 03-22-2023 Docusate (COLACE) capsule 10 0 mg docusate sodium 50 mg / sennosides, longterm 8.6 mg oral tablet (5 sources) Start: [...] Start: 02-08-2023 take 1 capsule by mo [facility] four times daily Gabapentin 300 MG capsule [...] over 3 days patch 1 patch sennosides, longterm 8.6 mg oral tablet (1 source) Start: 07-02-2024 End: 07-05-2024 simethicone 80 mg chewable tablet (19 sources) Start: 07-02-2024 End: 07-05-2024 take 1 tablet by mouth every six hours as needed Start: 10-10-2023 take 1 capsule by mo [facility] every six hours as needed Simethicone Oral [...] 04-20-2022 End: 04-21-2022 1 each, Intravenous, as olegario cated by pharmacokinetics, Starting on Tue04/20/22 at [...] DIFFERENTIALon 07-04-2025 AUTO NRBC 0.0 % Normal [facility] Comment on above: Performed By: #### L [id number] #### LAB [address] [address] Jack Mendoza M.D. [id number] AUTO NRBC ABS COUNT 0.00 K/mcL Normal 0.00-0.00 [facility] Comment on above: Performed By: #### L [id number] #### LAB [address] [address] Jack Mendoza M.D. [id number] BASOPHILS ABSOLUTE COUNT 0.01 K/mcL Normal 0.00-0.30 [facility] Comment on above: Performed By: #### L [id number] #### LAB [address] [place] [address] Jack Mendoza M.D. [id number] Basophils/100 WBC (Bld) 0.3 % Normal [facility] Comment on above: Performed By: #### L [id number] #### LAB [address] [place] [address] Jack Mendoza M.D. [id number] Eosinophils (Bld) [#/Vol] 0.04 10*3/uL Normal 0.00-0.50 [facility] Comment on above: Performed By: #### L [id number] #### LAB [address] [place] [address] Jack Mendoza M.D. [id number] Eosinophils/100 WBC (Bld) 1.2 % Normal [facility] Comment on above: Performed By: #### L [id number] #### LAB [address] [place] [address] Jack Mendoza M.D. [id number] Erythrocyte distribution width (RBC) [Ratio] 17.8 % High 11.6-14.8 [facility] Comment on above: Performed By: #### L [id number] #### LAB [address] [place], [place] [id number] Jack Mendoza M.D. [id number] Hematocrit (Bld) [Volume fraction] 28.0 % Low 41.0-53.0 [facility] Comment on above: Performed By: #### L [id number] #### LAB [address] [address] Jack Mendoza M.D. [id number] Hemoglobin (Bld) [Mass/Vol] 8.4 g/dL Low 13.5-17.5 [facility] Comment on above: Performed By: #### L [id number] ####[facility] LAB [address] [address] Jack Mendoza M.D. [id number] IG ABSOLUTE 0.01 K/mcL Normal 0.00-0.30 [facility] Comment on above: Performed By: #### L [id number] #### LAB [address] [address] Jack Mendoza M.D. [id number] IG PERCENT 0.30 % [facility] Comment on above: Result Comment: The IG parameter is the percentage of metamyelocytes, myelocytes and promyelocytes. An immature granulocyte count (IG) of 1% or more suggests the possibility of infection, an IG count of 3% is very likely related to an infection. Performed By: #### L [id number] #### LAB [address] [address] Jack Mendoza M.D. [id number] Lymphocytes (Bld) [#/Vol] 0.77 10*3/uL Low 0.90-4.00 [facility] Comment on above: Performed By: #### L [id number] #### LAB [address] [address] Jack Mendoza M.D. [id number] Lymphocytes/100 WBC (Bld) 23.2 % [facility] Comment on above: Performed By: #### L [id number] #### LAB [address] [address] Jack Mendoza M.D. [id number] MCH (RBC) [Entitic mass] 20.6 pg Low 26.0-34.0 [facility] Comment on above: Performed By: #### L [id number] #### LAB [address] [address] Jack Mendoza M.D. [id number] MCV (RBC) [Entitic vol] 68.6 fL Low 80.0-100.0 [facility] Comment on above: Performed By: #### L [id number] ####[facility] LAB [address] [address] Jack Mendoza M.D. [id number] MEAN CORPUSCULAR HEMOGLOBIN CONC 30.0 g/dL Low 31.0-37.0 [facility] Comment on above: Performed By: #### L [id number] #### LAB [address] [address] Jack Mendoza M.D. [id number] Monocytes (Bld) [#/Vol] 0.39 10*3/uL Normal 0.30-0.90 [facility] Comment on above: Performed By: #### L [id number] #### LAB [address] [address] Jack Mendoza M.D. [id number] Monocytes/100 WBC (Bld) 11.7 % Normal [facility] Comment on above: Performed By: #### L [id number] #### LAB [address] [address] Jack Mendoza M.D. [id number] NEUTROPHILS ABSOLUTE COUNT 2.10 K/mcL Normal 1.70-7.00 [facility] Comment on above: Performed By: #### L [id number] #### LAB [address] [address] Jack Mendoza M.D. [id number] Neutrophils/100 WBC (Bld) 63.3 % Normal [facility] Comment on above: Performed By: #### L [id number] #### LAB [address] [address] Jack Mendoza M.D. [id number] Platelets (Bld) [#/Vol] 89 10*3/uL Low 150-400 [facility] Comment on above: Performed By: #### L [id number] #### LAB [address] [address] Jack Mendoza M.D. [id number] RBC (Bld) [#/Vol] 4.08 10*6/uL Low 4.50-5.90 [facility] Comment on above: Performed By: #### L [id number] #### LAB [address] [address] Jack Mendoza M.D. [id number] WBC (Bld) [#/Vol] 3.32 10*3/uL Low 4.50-11.00 [facility] Comment on above: Performed By: #### L [id number] #### LAB [address] [address] Jack Mendoza M.D. [id number] HEPATIC FUNCTION PANELon ALP [Catalytic activity/Vol] 61 U/L Normal 40-150 [facility] Comment on above: Performed By: #### 4 5866 #### LAB [address] [address] Jack Mendoza M.D. [id number] ALT [Catalytic activity/Vol] 11 U/L Normal 0-50 U/L [facility] Comment on above: Performed By: #### 4 5866 #### LAB [address] [address] Jack Mendoza M.D. [id number] AST [Catalytic activity/Vol] 21 U/L Normal 0-50 U/L [facility] Comment on above: Performed By: #### 4 5866 ####[facility] LAB [address] [address] Jack Mendoza M.D. [id number] Bilirubin [Mass/Vol] 0.6 mg/dL Normal 0.0-1.3 [facility] Comment on above: Performed By: #### 4 5866 ####[facility] LAB [address] [address] Jack Mendoza M.D. [id number] Bilirubin.indirect [Mass/Vol] 0.3 mg/dL Normal 0.0-0.4 [facility] Comment on above: Performed By: #### 4 5866 #### LAB [address] [address] Jack Mendoza M.D. [id number] Protein [Mass/Vol] 6.3 g/dL Normal 6.0-8.0 [facility] Comment on above: Performed By: #### 4 5866 #### LAB [address] [address] Jack Mendoza M.D. [id number] MAGNESIUM LEVELon 07-04-2025 Magnesium [Mass/Vol] 1.8 mg/dL Normal 1.6-2.4 [facility] Comment on above: Performed By: #### 4 6109 #### LAB [address] [address] Jack Mendoza M.D. [id number] RENAL FUNCTION PANELon 07-04 Albumin [Mass/Vol] 2.9 g/dL Low 3.2-5.2 [facility] Comment on above: Order Comment: [facility] has implemented the eGFR calculation approach that does not have a coefficient for race that conforms to the NKF-ASN Task Force Recommendations. Performed By: #### 4 6449 #### LAB [address] [address] Jack Mendoza M.D. [id number] Performed By: #### 4 5866 #### LAB [address] [address] Jack Mendoza M.D. [id number] Anion gap [Moles/Vol] 10 mmol/L Normal 10-20 [facility] Comment on above: Order Comment: [facility] has implemented the eGFR calculation approach that does not have a coefficient for race that conforms to the NKF-ASN Task Force Recommendations. Performed By: #### 4 6449 ####[facility] LAB [address] [place], [place] [address] Jack Mendoza M.D. [id number] Calcium [Mass/Vol] 8.2 mg/dL Low 8.4-10.2 [facility] Comment on above: Order Comment: [facility] has implemented the eGFR calculation approach that does not have a coefficient for race that conforms to the NKF-ASN Task Force Recommendations. Performed By: #### 4 6449 #### LAB [address] [address] Jack Mendoza M.D. [id number] Chloride [Moles/Vol] 93 mmol/L Low 98-108 [facility] Comment on above: Order Comment: [facility] has implemented the eGFR calculation approach that does not have a coefficient for race that conforms to the NKF-ASN Task Force Recommendations. Performed By: #### 4 6449 #### LAB [address] [address] Jack Mendoza M.D. [id number] Creatinine [Mass/Vol] 0.53 mg/dL Normal 0.50-1.30 [facility] Comment on above: Order Comment: [facility] has implemented the eGFR calculation approach that does not have a coefficient for race that conforms to the NKF-ASN Task Force Recommendations. Performed By: #### 4 6449 #### LAB [address] [address] Jack Mendoza M.D. [id number] EGFR 116 mL/min/1.73 m2 Normal >=60 [facility] Comment on above: Order Comment: [facility] has implemented the eGFR calculation approach that does not have a coefficient for race that conforms to the NKF-ASN Task Force Recommendations. Result Comment: Ashley mated GFR was calculated using the 2020 CKD-EPI creatinine equation. Performed By: #### 4 6449 #### LAB [address] [address] Jack Mendoza M.D. [id number] Glucose [Mass/Vol] 116 mg/dL High 65-99 [facility] Comment on above: Order Comment: [facility] has implemented the eGFR calculation approach that does not have a coefficient for race that conforms to the NKF-ASN Task Force Recommendations. Performed By: #### 4 6449 #### LAB [address] [address] Jack Mendoza M.D. [id number] HCO3 (Bld) [Moles/Vol] 35 mmol/L High 21-32 [facility] Comment on above: Order Comment: [facility] has implemented the eGFR calculation approach that does not have a coefficient for race that conforms to the NKF-ASN Task Force Recommendations. Performed By: #### 4 6449 #### LAB [address] [address] Jack Mendoza M.D. [id number] Phosphate [Mass/Vol] 3.1 mg/dL Normal 2.7-4.5 [facility] Comment on above: Order Comment: [facility] has implemented the eGFR calculation approach that does not have a coefficient for race that conforms to the NKF-ASN Task Force Recommendations. Performed By: #### 4 6449 #### LAB [address] [address] Jack Mendoza M.D. [id number] Potassium [Moles/Vol] 3.9 mmol/L Normal 3.5-5.1 [facility] Comment on above: Order Comment: [facility] has implemented the eGFR calculation approach that does not have a coefficient for race that conforms to the NKF-ASN Task Force Recommendations. Performed By: #### 4 6449 #### LAB [address] [address] Jack Mendoza M.D. [id number] Sodium [Moles/Vol] 134 mmol/L Low 135-145 [facility] Comment on above: Order Comment: [facility] has implemented the eGFR calculation approach that does not have a coefficient for race that conforms to the NKF-ASN Task Force Recommendations. Performed By: #### 4 6449 #### LAB [address] [address] Jack Mendoza M.D. [id number] Urea nitrogen [Mass/Vol] 22 mg/dL Normal 8-25 [facility] Comment on above: Order Comment: [facility] has implemented the eGFR calculation approach that does not have a coefficient for race that conforms to the NKF-ASN Task Force Recommendations. Performed By: #### 4 6449 ####[facility] LAB [address] [address] Jack Mendoza M.D. [id number] Urea nitrogen/Creatinine [Mass ratio] 41.5 mg/mg High 10.0-20.0 [facility] Comment on above: Order Comment: [facility] has implemented the eGFR calculation approach that does not have a coefficient for race that conforms to the NKF-ASN Task Force Recommendations. Performed By: #### 4 6449 ####[facility] LAB [address] [address] Jack Mendoza M.D. [id number] CBC WITH AUTO DIFFERENTIALon 07-03-2025 AUTO NRBC 0.0 % [facility] Comment on above: Performed By: #### L [id number] ####[facility] LAB [address] [address] Jack Mendoza M.D. [id number] AUTO NRBC ABS COUNT 0.00 K/mcL Normal 0.00-0.00 [facility] Comment on above: Performed By: #### L [id number] ####[facility] LAB [address] [address] Jack Mendoza M.D. [id number] BASOPHILS ABSOLUTE COUNT 0.00 K/mcL Normal 0.00-0.30 [facility] Comment on above: Performed By: #### L [id number] ####[facility] LAB [address] [address] Jack Mendoza M.D. [id number] Basophils/100 WBC (Bld) 0.0 % [facility] Comment on above: Performed By: #### L [id number] ####[facility] LAB [address] [address] Jack Mendoza M.D. [id number] Eosinophils (Bld) [#/Vol] 0.02 10*3/uL Normal 0.00-0.50 [facility] Comment on above: Performed By: #### L [id number] #### LAB [address] [address] Jack Mendoza M.D. [id number] Eosinophils/100 WBC (Bld) 0.4 % Normal [facility] Comment on above: Performed By: #### L [id number] ####[facility] LAB [address] [address] Jack Mendoza M.D. [id number] Erythrocyte distribution width (RBC) [Ratio] 18.1 % High 11.6-14.8 [facility] Comment on above: Performed By: #### L [id number] #### LAB [address] [address] Jack Mendoza M.D. [id number] Hematocrit (Bld) [Volume fraction] 30.9 % Low 41.0-53.0 [facility] Comment on above: Performed By: #### L [id number] #### LAB [address] [address] Jack Mendoza M.D. [id number] Hemoglobin (Bld) [Mass/Vol] 9.4 g/dL Low 13.5-17.5 [facility] Comment on above: Performed By: #### L [id number] #### LAB [address] [address] Jack Mendoza M.D. [id number] IG ABSOLUTE 0.03 K/mcL Normal 0.00-0.30 [facility] Comment on above: Performed By: #### L [id number] #### LAB [address] [address] Jack Mendoza M.D. [id number] IG PERCENT 0.60 % Normal [facility] Comment on above: Result Comment: The IG parameter is the percentage of metamyelocytes, myelocytes and promyelocytes. An immature granulocyte count (IG) of 1% or more suggests the possibility of infection, an IG count of 3% is very likely related to an infection. Performed By: #### L [id number] #### LAB [address] [place] [address] Jack Mendoza M.D. [id number] Lymphocytes (Bld) [#/Vol] 0.99 10*3/uL Normal 0.90-4.00 [facility] Comment on above: Performed By: #### L [id number] #### LAB [address] [address] Jack Mendoza M.D. [id number] Lymphocytes/100 WBC (Bld) 19.4 % Normal [facility] Comment on above: Performed By: #### L [id number] #### LAB [address] [place] [address] Jack Mendoza M.D. [id number] MCH (RBC) [Entitic mass] 20.9 pg Low 26.0-34.0 [facility] Comment on above: Performed By: #### L [id number] #### LAB [address] [place] [address] Jack Mendoza M.D. [id number] MCV (RBC) [Entitic vol] 68.8 fL Low 80.0-100.0 [facility] Comment on above: Performed By: #### L [id number] #### LAB [address] [place] [address] Jack Mendoza M.D. [id number] MEAN CORPUSCULAR HEMOGLOBIN CONC 30.4 g/dL Low 31.0-37.0 [facility] Comment on above: Performed By: #### L [id number] ####[facility] [address] [place] [address] Jack Mendoza M.D. [id number] Monocytes (Bld) [#/Vol] 0.72 10*3/uL Normal 0.30-0.90 [facility] Comment on above: Performed By: #### L [id number] #### LAB [address] [place] [address] Jack Mendoza M.D. [id number] Monocytes/100 WBC (Bld) 14.1 % Normal [facility] Comment on above: Performed By: #### L [id number] #### LAB [address] [address] Jack Mendoza M.D. [id number] NEUTROPHILS ABSOLUTE COUNT 3.35 K/mcL Normal 1.70-7.00 [facility] Comment on above: Performed By: #### L [id number] #### LAB [address] [address] Jack Mendoza M.D. [id number] Neutrophils/100 WBC (Bld) 65.5 % Normal [facility] Comment on above: Performed By: #### L [id number] #### LAB [address] [address] Jack Mendoza M.D. [id number] Platelets (Bld) [#/Vol] 116 10*3/uL Low 150-400 [facility] Comment on above: Performed By: #### L [id number] #### LAB [address] [address] Jack Mendoza M.D. [id number] RBC (Bld) [#/Vol] 4.49 10*6/uL Low 4.50-5.90 [facility] Comment on above: Performed By: #### L [id number] #### LAB [address] [address] Jack Mendoza M.D. [id number] WBC (Bld) [#/Vol] 5.11 10*3/uL Normal 4.50-11.00 [facility] Comment on above: Performed By: #### L [id number] #### LAB [address] [address] Jack Mendoza M.D. [id number] HEPATIC FUNCTION PANELon ALP [Catalytic activity/Vol] 65 U/L Normal 40-150 [facility] Comment on above: Performed By: #### 4 5866 #### LAB [address] [address] Jack Mendoza M.D. [id number] ALT [Catalytic activity/Vol] 11 U/L Normal 0-50 U/L [facility] Comment on above: Performed By: #### 4 5866 #### LAB [address] [address] Jack Mendoza M.D. [id number] AST [Catalytic activity/Vol] 21 U/L Normal 0-50 U/L [facility] Comment on above: Performed By: #### 4 5866 #### LAB [address] [address] Jack Mendoza M.D. [id number] Bilirubin [Mass/Vol] 0.7 mg/dL Normal 0.0-1.3 [facility] Comment on above: Performed By: #### 4 5866 #### LAB [address] [address] Jack Mendoza M.D. [id number] Bilirubin.indirect [Mass/Vol] 0.3 mg/dL Normal 0.0-0.4 [facility] Comment on above: Performed By: #### 4 5866 #### LAB [address] [address] Jack Mendoza M.D. [id number] Protein [Mass/Vol] 6.5 g/dL Normal 6.0-8.0 [facility] Comment on above: Performed By: #### 4 5866 #### LAB [address] [address] Jack Mendoza M.D. [id number] MAGNESIUM LEVELon 07-03-2025 Magnesium [Mass/Vol] 2.1 mg/dL Normal 1.6-2.4 [facility] Comment on above: Performed By: #### 4 6109 #### LAB [address] [address] Jack Mendoza M.D. [id number] POC GLUCOSE - [facility] 025 Glucose [Mass/Vol] 156 mg/dL High 65-99 [facility] Glucose [Mass/Vol] 138 mg/dL High 65-99 [facility] PT/INRon 07-03-2025 INR Coag (PPP) [Relative time] 1.2 {INR} High 0.8-1.1 [facility] Comment on above: Order Comment: Durin g the induction phase of oral anticoagulation, the INR may not reflect the anticoagulation status of the patient. Therapeutic ranges for INR's are:Most clinical situations: INR 2.0-3.0Mechanical Prosthetic Valve: INR 2.5-3.5Critical: INR >5.0 Performed By: #### 4 6391 ####[facility] [address] [place], [place] [address] Jack Mendoza M.D. [id number] PT Coag (PPP) [Time] 15.7 s High 11.8-14.3 [facility] Comment on above: Order Comment: Markin g the induction phase of oral anticoagulation, the INR may not reflect the anticoagulation status of the patient. Therapeutic ranges for INR's are:Most clinical situations: INR 2.0-3.0Mechanical Prosthetic Valve: INR 2.5-3.5Critical: INR >5.0 Performed By: #### 4 6391 #### LAB [address] [place], [place] [address] Jack Mendoza M.D. [id number] RENAL FUNCTION PANELon 07-03 Albumin [Mass/Vol] 3.0 g/dL Low 3.2-5.2 [facility] Comment on above: Order Comment: [facility] has implemented the eGFR calculation approach that does not have a coefficient for race that conforms to the NKF-ASN Task Force Recommendations. Performed By: #### 4 6449 #### LAB [address] [place], [place] [address] Jack Mendoza M.D. [id number] Performed By: #### 4 5866 #### LAB [address] [place], [place] [address] Jack Mendoza M.D. [id number] Anion gap [Moles/Vol] 7 mmol/L Low 10-20 [facility] Comment on above: Order Comment: [facility] has implemented the eGFR calculation approach that does not have a coefficient for race that conforms to the NKF-ASN Task Force Recommendations. Performed By: #### 4 6449 #### LAB [address] [place], [place] [address] Jack Mendoza M.D. [id number] Calcium [Mass/Vol] 8.1 mg/dL Low 8.4-10.2 [facility] Comment on above: Order Comment: [facility] has implemented the eGFR calculation approach that does not have a coefficient for race that conforms to the NKF-ASN Task Force Recommendations. Performed By: #### 4 6449 #### LAB [address] [place], [place] [address] Jack Mendoza M.D. [id number] Chloride [Moles/Vol] 94 mmol/L Low 98-108 [facility] Comment on above: Order Comment: [facility] has implemented the eGFR calculation approach that does not have a coefficient for race that conforms to the NKF-ASN Task Force Recommendations. Performed By: #### 4 6449 #### LAB [address] [place], [place] [address] Jack Mendoza M.D. [id number] Creatinine [Mass/Vol] 0.55 mg/dL Normal 0.50-1.30 [facility] Comment on above: Order Comment: [facility] has implemented the eGFR calculation approach that does not have a coefficient for race that conforms to the NKF-ASN Task Force Recommendations. Performed By: #### 4 6449 #### LAB [address] [place], [place] [address] Jack Mendoza M.D. [id number] EGFR 115 mL/min/1.73 m2 Normal >=60 [facility] Comment on above: Order Comment: [facility] has implemented the eGFR calculation approach that does not have a coefficient for race that conforms to the NKF-ASN Task Force Recommendations. Result Comment: Ashley mated GFR was calculated using the 2020 CKD-EPI creatinine equation. Performed By: #### 4 6449 #### LAB [address] [address] Jack Mendoza M.D. [id number] Glucose [Mass/Vol] 130 mg/dL High 65-99 [facility] Comment on above: Order Comment: [facility] has implemented the eGFR calculation approach that does not have a coefficient for race that conforms to the NKF-ASN Task Force Recommendations. Performed By: #### 4 6449 #### LAB [address] [address] Jack Mendoza M.D. [id number] HCO3 (Bld) [Moles/Vol] 35 mmol/L High 21-32 [facility] Comment on above: Order Comment: [facility] has implemented the eGFR calculation approach that does not have a coefficient for race that conforms to the NKF-ASN Task Force Recommendations. Performed By: #### 4 6449 #### LAB [address] [address] Jack Mendoza M.D. [id number] Phosphate [Mass/Vol] 2.6 mg/dL Low 2.7-4.5 [facility] Comment on above: Order Comment: [facility] has implemented the eGFR calculation approach that does not have a coefficient for race that conforms to the NKF-ASN Task Force Recommendations. Performed By: #### 4 6449 #### LAB [address] [address] Jack Mendoza M.D. [id number] Potassium [Moles/Vol] 4.3 mmol/L Normal 3.5-5.1 [facility] Comment on above: Order Comment: [facility] has implemented the eGFR calculation approach that does not have a coefficient for race that conforms to the NKF-ASN Task Force Recommendations. Performed By: #### 4 6449 ####[facility] [address] [address] Jack Mendoza M.D. [id number] Sodium [Moles/Vol] 132 mmol/L Low 135-145 [facility] Comment on above: Order Comment: [facility] has implemented the eGFR calculation approach that does not have a coefficient for race that conforms to the NKF-ASN Task Force Recommendations. Performed By: #### 4 6449 #### LAB [address] [place], [place] [address] Jack Mendoza M.D. [id number] Urea nitrogen [Mass/Vol] 23 mg/dL Normal 8-25 [facility] Comment on above: Order Comment: [facility] has implemented the eGFR calculation approach that does not have a coefficient for race that conforms to the NKF-ASN Task Force Recommendations. Performed By: #### 4 6449 #### LAB [address] [address] Jack Mendoza M.D. [id number] Urea nitrogen/Creatinine [Mass ratio] 41.8 mg/mg High 10.0-20.0 [facility] Comment on above: Order Comment: [facility] has implemented the eGFR calculation approach that does not have a coefficient for race that conforms to the NKF-ASN Task Force Recommendations. Performed By: #### 4 6449 #### LAB [address] [address] Jack Mendoza M.D. [id number] VANCOMYCIN LEVEL, RANDOMon 1 09-02-2024 VANCOMYCIN RANDOM 22.8 mcg/mL Normal [facility] Comment on above: Order Comment: As of 05/2022 vancomycin dosing for [facility] inpatients will be done by Bayesian dosing software rather than off traditional trough values. Please contact the site specific inpatient pharmacy before making dose changes off of trough values alone for admitted patients.No established reference range. Performed By: #### 4 6651 #### LAB [address] [place], [place] [address] Jack Mendoza M.D. [id number] CBC WITH AUTO DIFFERENTIALon 07-02-2025 AUTO NRBC 0.0 % Normal [facility] Comment on above: Performed By: #### L [id number] ####[facility] [address] [place], [place] [address] Jack Mendoza M.D. [id number] AUTO NRBC ABS COUNT 0.00 K/mcL Normal 0.00-0.00 [facility] Comment on above: Performed By: #### L [id number] #### LAB [address] [address] Jack Mendoza M.D. [id number] BASOPHILS ABSOLUTE COUNT 0.01 K/mcL Normal 0.00-0.30 [facility] Comment on above: Performed By: #### L [id number] #### LAB [address] [address] Jack Mendoza M.D. [id number] Basophils/100 WBC (Bld) 0.1 % Normal [facility] Comment on above: Performed By: #### L [id number] #### LAB [address] [address] Jack Mendoza M.D. [id number] Eosinophils (Bld) [#/Vol] 0.00 10*3/uL Normal 0.00-0.50 [facility] Comment on above: Performed By: #### L [id number] #### LAB [address] [address] Jack Mendoza M.D. [id number] Eosinophils/100 WBC (Bld) 0.0 % Normal [facility] Comment on above: Performed By: #### L [id number] #### LAB [address] [address] Jack Mendoza M.D. [id number] Erythrocyte distribution width (RBC) [Ratio] 17.8 % High 11.6-14.8 [facility] Comment on above: Performed By: #### L [id number] #### LAB [address] [address] Jack Mendoza M.D. [id number] Hematocrit (Bld) [Volume fraction] 30.6 % Low 41.0-53.0 [facility] Comment on above: Performed By: #### L [id number] #### LAB [address] [place] [address] Jack Mendoza M.D. [id number] Hemoglobin (Bld) [Mass/Vol] 9.2 g/dL Low 13.5-17.5 [facility] Comment on above: Performed By: #### L [id number] #### LAB [address] [address] Jack Mendoza M.D. [id number] IG ABSOLUTE 0.04 K/mcL Normal 0.00-0.30 [facility] Comment on above: Performed By: #### L [id number] #### LAB [address] [address] Jack Mendoza M.D. [id number] IG PERCENT 0.60 % Normal [facility] Comment on above: Result Comment: The IG parameter is the percentage of metamyelocytes, myelocytes and promyelocytes. An immature granulocyte count (IG) of 1% or more suggests the possibility of infection, an IG count of 3% is very likely related to an infection. Performed By: #### L [id number] #### LAB [address] [address] Jack Mendoza M.D. [id number] Lymphocytes (Bld) [#/Vol] 0.58 10*3/uL Low 0.90-4.00 [facility] Comment on above: Performed By: #### L [id number] #### LAB [address] [address] Jack Mendoza M.D. [id number] Lymphocytes/100 WBC (Bld) 8.4 % Normal [facility] Comment on above: Performed By: #### L [id number] #### LAB [address] [address] Jack Mendoza M.D. [id number] MCH (RBC) [Entitic mass] 20.6 pg Low 26.0-34.0 [facility] Comment on above: Performed By: #### L [id number] #### LAB [address] [address] Jack Mendoza M.D. [id number] MCV (RBC) [Entitic vol] 68.5 fL Low 80.0-100.0 [facility] Comment on above: Performed By: #### L [id number] #### LAB [address] [address] Jack Mendoza M.D. [id number] MEAN CORPUSCULAR HEMOGLOBIN CONC 30.1 g/dL Low 31.0-37.0 [facility] Comment on above: Performed By: #### L [id number] #### LAB [address] [address] Jack Mendoza M.D. [id number] Monocytes (Bld) [#/Vol] 0.74 10*3/uL Normal 0.30-0.90 [facility] Comment on above: Performed By: #### L [id number] #### LAB [address] [address] Jack Mendoza M.D. [id number] Monocytes/100 WBC (Bld) 10.7 % Normal [facility] Comment on above: Performed By: #### L [id number] #### LAB [address] [address] Jack Mendoza M.D. [id number] NEUTROPHILS ABSOLUTE COUNT 5.57 K/mcL Normal 1.70-7.00 [facility] Comment on above: Performed By: #### L [id number] #### LAB [address] [address] Jack Mendoza M.D. [id number] Neutrophils/100 WBC (Bld) 80.2 % Normal [facility] Comment on above: Performed By: #### L [id number] #### LAB [address] [place] [address] Jack Mendoza M.D. [id number] Platelet mean volume (Bld) [Entitic vol] 11.7 fL Normal 9.4-12.4 [facility] Comment on above: Performed By: #### L [id number] #### LAB [address] [place] [address] Jack Mendoza M.D. [id number] Platelets (Bld) [#/Vol] 118 10*3/uL Low 150-400 [facility] Comment on above: Performed By: #### L [id number] ####[facility] [address] [address] Jack Mendoza M.D. [id number] RBC (Bld) [#/Vol] 4.47 10*6/uL Low 4.50-5.90 [facility] Comment on above: Performed By: #### L [id number] ####[facility] [address] [address] Jack Mendoza M.D. [id number] WBC (Bld) [#/Vol] 6.94 10*3/uL Normal 4.50-11.00 [facility] Comment on above: Performed By: #### L [id number] #### LAB [address] [address] Jack Mendoza M.D. [id number] CONSULTon 07-02-2025 CONSULT Normal [facility] HEPATIC FUNCTION PANELon Albumin [Mass/Vol] 2.7 g/dL Low 3.2-5.2 [facility] Comment on above: Performed By: #### 4 5866 ####[facility] [address] [address] Jack Mendoza M.D. [id number] ALP [Catalytic activity/Vol] 59 U/L Normal 40-150 [facility] Comment on above: Performed By: #### 4 5866 ####[facility] [address] [address] Jack Mendoza M.D. [id number] ALT [Catalytic activity/Vol] 16 U/L Normal 0-50 U/L [facility] Comment on above: Performed By: #### 4 5866 ####[facility] [address] [address] Jack Mendoza M.D. [id number] AST [Catalytic activity/Vol] 29 U/L Normal 0-50 U/L [facility] Comment on above: Performed By: #### 4 5866 ####[facility] [address] [address] Jack Mendoza M.D. [id number] Bilirubin [Mass/Vol] 0.6 mg/dL Normal 0.0-1.3 [facility] Comment on above: Performed By: #### 4 5866 #### LAB [address] [address] Jack Mendoza M.D. [id number] Bilirubin.indirect [Mass/Vol] 0.3 mg/dL Normal 0.0-0.4 [facility] Comment on above: Performed By: #### 4 5866 #### LAB [address] [address] Jack Mendoza M.D. [id number] Protein [Mass/Vol] 6.2 g/dL Normal 6.0-8.0 [facility] Comment on above: Performed By: #### 4 5866 #### LAB [address] [address] Jack Mendoza M.D. [id number] MAGNESIUM LEVELon 07-02-2025 Magnesium [Mass/Vol] 2.1 mg/dL Normal 1.6-2.4 [facility] Comment on above: Performed By: #### 4 6109 #### LAB [address] [address] Jack Mendoza M.D. [id number] POC GLUCOSE [facility] 025 Glucose [Mass/Vol] 156 mg/dL High -[address] [place] [address] Glucose [Mass/Vol] 127 mg/dL High [address] [place] [address] Glucose [Mass/Vol] 167 mg/dL High [address] [place] [address] Glucose [Mass/Vol] 174 mg/dL High [address] [place] [address] RENAL FUNCTION PANELon 07-02 Albumin [Mass/Vol] 2.8 g/dL Low 3.2-5.2 [facility] Comment on above: Order Comment: [facility] has implemented the eGFR calculation approach that does not have a coefficient for race that conforms to the NKF-ASN Task Force Recommendations. Performed By: #### 4 6449 #### LAB [address] [address] Jack Mendoza M.D. [id number] Anion gap [Moles/Vol] 8 mmol/L Low 10-20 [facility] Comment on above: Order Comment: [facility] has implemented the eGFR calculation approach that does not have a coefficient for race that conforms to the NKF-ASN Task Force Recommendations. Performed By: #### 4 6449 #### LAB [address] [place], [place] [address] Jack Mendoza M.D. [id number] Calcium [Mass/Vol] 8.0 mg/dL Low 8.4-10.2 [facility] Comment on above: Order Comment: [facility] has implemented the eGFR calculation approach that does not have a coefficient for race that conforms to the NKF-ASN Task Force Recommendations. Performed By: #### 4 6449 #### LAB [address] [place], [place] [address] Jack Mendoza M.D. [id number] Chloride [Moles/Vol] 96 mmol/L Low 98-108 [facility] Comment on above: Order Comment: [facility] has implemented the eGFR calculation approach that does not have a coefficient for race that conforms to the NKF-ASN Task Force Recommendations. Performed By: #### 4 6449 #### LAB [address] [place], [place] [address] Jack Mendoza M.D. [id number] Creatinine [Mass/Vol] 0.60 mg/dL Normal 0.50-1.30 [facility] Comment on above: Order Comment: [facility] has implemented the eGFR calculation approach that does not have a coefficient for race that conforms to the NKF-ASN Task Force Recommendations. Performed By: #### 4 6449 #### LAB [address] [place], [place] [address] Jack Mendoza M.D. [id number] EGFR 112 mL/min/1.73 m2 Normal >=60 [facility] Comment on above: Order Comment: [facility] has implemented the eGFR calculation approach that does not have a coefficient for race that conforms to the NKF-ASN Task Force Recommendations. Result Comment: Ashley mated GFR was calculated using the 2020 CKD-EPI creatinine equation. Performed By: #### 4 6449 #### LAB [address] [address] Jack Mendoza M.D. [id number] Glucose [Mass/Vol] 158 mg/dL High 65-99 [facility] Comment on above: Order Comment: [facility] has implemented the eGFR calculation approach that does not have a coefficient for race that conforms to the NKF-ASN Task Force Recommendations. Performed By: #### 4 6449 #### LAB [address] [address] Jack Mendoza M.D. [id number] HCO3 (Bld) [Moles/Vol] 35 mmol/L High 21-32 [facility] Comment on above: Order Comment: [facility] has implemented the eGFR calculation approach that does not have a coefficient for race that conforms to the NKF-ASN Task Force Recommendations. Performed By: #### 4 6449 #### LAB [address] [address] Jack Mendoza M.D. [id number] Phosphate [Mass/Vol] 3.2 mg/dL Normal 2.7-4.5 [facility] Comment on above: Order Comment: [facility] has implemented the eGFR calculation approach that does not have a coefficient for race that conforms to the NKF-ASN Task Force Recommendations. Performed By: #### 4 6449 #### LAB [address] [address] Jack Mendoza M.D. [id number] Potassium [Moles/Vol] 5.0 mmol/L Normal 3.5-5.1 [facility] Comment on above: Order Comment: [facility] has implemented the eGFR calculation approach that does not have a coefficient for race that conforms to the NKF-ASN Task Force Recommendations. Performed By: #### 4 6449 #### LAB [address] [address] Jack Mendoza M.D. [id number] Sodium [Moles/Vol] 134 mmol/L Low 135-145 [facility] Comment on above: Order Comment: [facility] has implemented the eGFR calculation approach that does not have a coefficient for race that conforms to the NKF-ASN Task Force Recommendations. Performed By: #### 4 6449 ####[facility] [address] [address] Jcak Mendoza M.D. [id number] Urea nitrogen [Mass/Vol] 17 mg/dL Normal 8-25 [facility] Comment on above: Order Comment: [facility] has implemented the eGFR calculation approach that does not have a coefficient for race that conforms to the NKF-ASN Task Force Recommendations. Performed By: #### 4 6449 ####[facility] [address] [address] Jack Mendoza M.D. [id number] Urea nitrogen/Creatinine [Mass ratio] 28.3 mg/mg High 10.0-20.0 [facility] Comment on above: Order Comment: [facility] has implemented the eGFR calculation approach that does not have a coefficient for race that conforms to the NKF-ASN Task Force Recommendations. Performed By: #### 4 6449 #### LAB [address] [address] Jack Mendoza M.D. [id number] ALPHA DEFENSINon 07-01-2025 ALPHA DEFENSIN ALPHA DEFENSIN DETECTED Alpha defensin detected suggesting the presence of infection. Additional laboratory studies are recommended. Abnormal [facility] Comment on above: Performed By: #### L [id number] ####[facility] [address] [address] Jack Mendoza M.D. [id number] BLOOD CULTURE AEROBIC/ANAERO BICon 07-01-2025 BLOOD CULTURE AEROBIC/ANAEROBIC BLOOD CULTURE No Growth after 48 hrs Normal [facility] Comment on above: Order Comment: Blood Culture sets #1 and #2 cannot be collected with the same collection times. Each set must be collected from a different site, and must have a different collection time entered that reflects the actual collection time of each set. Performed By: #### 4 4014 ####[facility] [address] [place] [id number] Venancio Richardson M.D. [id number] BLOOD CULTURE AEROBIC/ANAEROBIC BLOOD CULTURE No Growth after 48 hrs [facility] Comment on above: Order Comment: Blood Culture sets #1 and #2 cannot be collected with the same collection times. Each set must be collected from a different site, and must have a different collection time entered that reflects the actual collection time of each set. Performed By: #### 4 4014 ####[facility] [address] [place] [id number] Venancio Richardson M.D. [id number] CBC WITH AUTO DIFFERENTIALon 07-01-2025 AUTO NRBC 0.0 % [facility] Comment on above: Performed By: #### L [id number] ####[facility] [address] [place] [address] Jack Mendoza M.D. [id number] AUTO NRBC ABS COUNT 0.00 K/mcL Normal 0.00-0.00 [facility] Comment on above: Performed By: #### L [id number] #### LAB [address] [address] Jack Mendoza M.D. [id number] BASOPHILS ABSOLUTE COUNT 0.00 K/mcL Normal 0.00-0.30 [facility] Comment on above: Performed By: #### L [id number] #### LAB [address] [address] Jack Mendoza M.D. [id number] Basophils/100 WBC (Bld) 0.0 % [facility] Comment on above: Performed By: #### L [id number] #### LAB [address] [address] Jack Mendoza M.D. [id number] Eosinophils (Bld) [#/Vol] 0.00 10*3/uL Normal 0.00-0.50 [facility] Comment on above: Performed By: #### L [id number] #### LAB [address] [address] Jack Mendoza M.D. [id number] Eosinophils/100 WBC (Bld) 0.0 % Normal [facility] Comment on above: Performed By: #### L [id number] #### LAB [address] [address] Jack Mendoza M.D. [id number] Erythrocyte distribution width (RBC) [Ratio] 17.8 % High 11.6-14.8 [facility] Comment on above: Performed By: #### L [id number] #### LAB [address] [address] Jack Mendoza M.D. [id number] Hematocrit (Bld) [Volume fraction] 34.9 % Low 41.0-53.0 [facility] Comment on above: Performed By: #### L [id number] #### LAB [address] [address] Jack Mendoza M.D. [id number] Hemoglobin (Bld) [Mass/Vol] 10.6 g/dL Low 13.5-17.5 [facility] Comment on above: Performed By: #### L [id number] #### LAB [address] [address] Jack Mendoza M.D. [id number] IG ABSOLUTE 0.01 K/mcL Normal 0.00-0.30 [facility] Comment on above: Performed By: #### L [id number] #### LAB [address] [address] Jack Mendoza M.D. [id number] IG PERCENT 0.50 % Normal [facility] Comment on above: Result Comment: The IG parameter is the percentage of metamyelocytes, myelocytes and promyelocytes. An immature granulocyte count (IG) of 1% or more suggests the possibility of infection, an IG count of 3% is very likely related to an infection. Performed By: #### L [id number] #### LAB [address] [place] [address] Jack Mendoza M.D. [id number] Lymphocytes (Bld) [#/Vol] 0.34 10*3/uL Low 0.90-4.00 [facility] Comment on above: Performed By: #### L [id number] #### LAB [address] [address] Jack Mendoza M.D. [id number] Lymphocytes/100 WBC (Bld) 18.2 % Normal [facility] Comment on above: Performed By: #### L [id number] #### LAB [address] [address] Jack Mendoza M.D. [id number] MCH (RBC) [Entitic mass] 20.7 pg Low 26.0-34.0 [facility] Comment on above: Performed By: #### L [id number] #### LAB [address] [address] Jack Mendoza M.D. [id number] MCV (RBC) [Entitic vol] 68.3 fL Low 80.0-100.0 [facility] Comment on above: Performed By: #### L [id number] #### LAB [address] [address] Jack Mendoza M.D. [id number] MEAN CORPUSCULAR HEMOGLOBIN CONC 30.4 g/dL Low 31.0-37.0 [facility] Comment on above: Performed By: #### L [id number] #### LAB [address] [place] [address] Jack Mendoza M.D. [id number] Monocytes (Bld) [#/Vol] 0.09 10*3/uL Low 0.30-0.90 [facility] Comment on above: Performed By: #### L [id number] #### LAB [address] [place] [address] Jack Mendoza M.D. [id number] Monocytes/100 WBC (Bld) 4.8 % [facility] Comment on above: Performed By: #### L [id number] #### LAB [address] [place] [address] Jack Mendoza M.D. [id number] NEUTROPHILS ABSOLUTE COUNT 1.43 K/mcL Low 1.70-7.00 [facility] Comment on above: Performed By: #### L [id number] ####[facility] LAB [address] [address] Jack Mendoza M.D. [id number] Neutrophils/100 WBC (Bld) 76.5 % Normal [facility] Comment on above: Result Comment: Tiffany pheral smear reviewed manually Performed By: #### L [id number] ####[facility] [address] [address] Jack Mendoza M.D. [id number] Platelets (Bld) [#/Vol] 95 10*3/uL Low 150-400 [facility] Comment on above: Performed By: #### L [id number] ####[facility] LAB [address] [address] Jack Mendoza M.D. [id number] RBC (Bld) [#/Vol] 5.11 10*6/uL Normal 4.50-5.90 [facility] Comment on above: Performed By: #### L [id number] ####[facility] LAB [address] [address] Jack Mendoza M.D. [id number] WBC (Bld) [#/Vol] 1.87 10*3/uL Low 4.50-11.00 [facility] Comment on above: Performed By: #### L [id number] ####[facility] LAB [address] [address] Jack Mendoza M.D. [id number] CONSULTon 07-01-2025 CONSULT Normal [facility] CONSULT Normal [facility] CRP, INFLAMMATIONon 07-01-20 CRP [Mass/Vol] 23.1 mg/L High 0.0-10.0 [facility] Comment on above: Performed By: #### 4 5334 ####[facility] LAB [address] [address] Jack Mendoza M.D. [id number] DRUGS OF ABUSE SCREEN, URINE on 07-01-2025 AMPHETAMINE SCREEN, URINE Not detected Normal None Detected [facility] Comment on above: Order Comment: Scree n results should be used for treatment purposes only.Specimen will be kept for 2 weeks, if the sample is adequate. Confirmation testing can be initiated by calling the lab within 2 weeks. Result Comment: Urin e Amphetamine Cutoff: < 1000 ng/mL = None Detected Performed By: #### 4 6965 ####[facility] [address] [address] Jack Mendoza M.D. [id number] BARBITURATE SCREEN URINE Not detected Normal None Detected [facility] Comment on above: Order Comment: Scree n results should be used for treatment purposes only.Specimen will be kept for 2 weeks, if the sample is adequate. Confirmation testing can be initiated by calling the lab within 2 weeks. Result Comment: Urin e Barbiturates Cutoff: < 200 ng/mL = None Detected Performed By: #### 4 6965 ####[facility] [address] [address] Jack Mendoza M.D. [id number] BENZODIAZEPINE SCREEN, URINE Positive Abnormal None Detected [facility] Comment on above: Order Comment: Scree n results should be used for treatment purposes only.Specimen will be kept for 2 weeks, if the sample is adequate. Confirmation testing can be initiated by calling the lab within 2 weeks. Result Comment: Urin e Benzodiazepine Cutoff: < 200 ng/mL = None Detected Performed By: #### 4 6965 ####[facility] [address] [address] Jack Mendoza M.D. [id number] BUPRENORPHINE, URINE Positive Abnormal None Detected [facility] Comment on above: Order Comment: Scree n results should be used for treatment purposes only.Specimen will be kept for 2 weeks, if the sample is adequate. Confirmation testing can be initiated by calling the lab within 2 weeks. Result Comment: Urin e Buprenorphine Cutoff: < 5 ng/mL = None Detected Performed By: #### 4 6965 ####[facility] [address] [address] Jack Mendoza M.D. [id number] CANNABINOID SCREEN URINE Positive Abnormal None Detected [facility] Comment on above: Order Comment: Scree n results should be used for treatment purposes only.Specimen will be kept for 2 weeks, if the sample is adequate. Confirmation testing can be initiated by calling the lab within 2 weeks. Result Comment: Urin e Cannabinoids Cutoff: < 50 ng/mL = None Detected Performed By: #### 4 6965 ####[facility] [address] [address] Jack Mendoza M.D. [id number] COCAINE, SCREEN URINE Positive Abnormal None Detected [facility] Comment on above: Order Comment: Scree n results should be used for treatment purposes only.Specimen will be kept for 2 weeks, if the sample is adequate. Confirmation testing can be initiated by calling the lab within 2 weeks. Result Comment: Urin e Cocaine Cutoff: < 300 ng/mL = None Detected Performed By: #### 4 6965 ####[facility] [address] [place] [address] Jack Mendoza M.D. [id number] FENTANYL, URINE Not detected Normal None Detected [facility] Comment on above: Order Comment: Scree n results should be used for treatment purposes only.Specimen will be kept for 2 weeks, if the sample is adequate. Confirmation testing can be initiated by calling the lab within 2 weeks. Result Comment: Urin e Fentanyl Cutoff: < 1 ng/mL = None Detected Performed By: #### 4 6965 ####[facility] [address] [address] Jack Mendoza M.D. [id number] METHADONE SCREEN, URINE Not detected Normal None Detected [facility] Comment on above: Order Comment: Scree n results should be used for treatment purposes only.Specimen will be kept for 2 weeks, if the sample is adequate. Confirmation testing can be initiated by calling the lab within 2 weeks. Result Comment: Urin e Methadone Cutoff: < 300 ng/mL = None Detected Performed By: #### 4 6965 ####[facility] [address] [address] Jack Mendoza M.D. [id number] OPIATE SCREEN URINE Not detected Normal None Detected [facility] Comment on above: Order Comment: Scree n results should be used for treatment purposes only.Specimen will be kept for 2 weeks, if the sample is adequate. Confirmation testing can be initiated by calling the lab within 2 weeks. Result Comment: Urin e Opiates Cutoff: < 300 ng/mL = None Detected Performed By: #### 4 6965 ####[facility] [address] [place], [place] [address] Jack Mendoza M.D. [id number] OXYCODONE SCREEN, URINE Positive Abnormal None Detected [facility] Comment on above: Order Comment: Scree n results should be used for treatment purposes only.Specimen will be kept for 2 weeks, if the sample is adequate. Confirmation testing can be initiated by calling the lab within 2 weeks. Result Comment: Urin e Oxycodone Cutoff: < 100 ng/mL = None Detected Performed By: #### 4 6965 ####[facility] [address] [place], [place] [address] Jack Mendoza M.D. [id number] ECHOCARDIOGRAM LIMITEDon ECHOCARDIOGRAM LIMITED Normal [facility] HEPATITIS A ANTIBODY, IGMon 07-01-2025 HEPATITIS A IGM ANTIBODY Equivocal Abnormal Negative [facility] Comment on above: Order Comment: Test performed using Shen SOHAM immunoassay system Result Comment: Hepa titis A IgM result is equivocal. It is recommended that a new specimen be drawn in two weeks and re-tested. Performed By: #### 4 5870 ####[facility] [address] [place], [place] [id number] Venancio Richardson M.D. [id number] HEPATITIS A ANTIBODY,TOTALon 07-01-2025 HEPATITIS A TOTAL ANTIBODY Positive Abnormal Negative [facility] Comment on above: Order Comment: Test performed using Shen SOHAM immunoassay system Performed By: #### 4 5869 ####[facility] [address] [place], [place] [address] Venancio Richardson M.D. [id number] HEPATITIS B CORE ANTIBODY, T OTALon 07-01-2025 HEPATITIS B CORE TOTAL ANTIBODY Positive Abnormal Negative [facility] Comment on above: Order Comment: Test performed using Shen SOHAM immunoassay system Performed By: #### 4 5873 ####[facility] [address] [place] [address] Venancio Richardson M.D. [id number] HEPATITIS B SURFACE ANTIBODY on 07-01-2025 HEPATITIS B SURFACE ANTIBODY Positive Abnormal Negative [facility] Comment on above: Order Comment: Test performed using Shen SOHAM immunoassay system Performed By: #### 4 5876 ####[facility] [address] [place] [address] Venancio Richardson M.D. [id number] HEPATITIS B SURFACE ANTIGENo n 07-01-2025 HEPATITIS B SURFACE ANTIGEN Negative Normal Negative [facility] Comment on above: Order Comment: Test performed using Shen SOHAM immunoassay system Performed By: #### 4 4081 ####[facility] [address] [place] [address] Venancio Richardson M.D. [id number] HEPATITIS C ANTIBODYon 07-01 HEPATITIS C ANTIBODY Positive Abnormal Negative [facility] Comment on above: Order Comment: Test performed using Shen SOHAM immunoassay system Result Comment: A po sitive antibody test requires additional follow-up testing, Hepatitis C Virus Quantitation, to determine if a person is currently infected with Hepatitis C. Performed By: #### 4 5878 ####[facility] [address] [place] [address] Venancio Richardson M.D. [id number] MAGNESIUM LEVELon 07-01-2025 Magnesium [Mass/Vol] 1.9 mg/dL Normal 1.6-2.4 [facility] Comment on above: Performed By: #### 4 6109 ####[facility] [address] [place], [place] [address] Jack Mendoza M.D. [id number] OP NOTEon 07-01-2025 OP NOTE Normal [facility] Glucose [Mass/Vol] 153 mg/dL High 65- [facility] Glucose [Mass/Vol] 165 mg/dL High 65- [facility] Glucose [Mass/Vol] 146 mg/dL High 65- [facility] Glucose [Mass/Vol] 145 mg/dL High 65- [facility] RENAL FUNCTION PANELon 07-01 Albumin [Mass/Vol] 2.9 g/dL Low 3.2-5.2 [facility] Comment on above: Order Comment: [facility] has implemented the eGFR calculation approach that does not have a coefficient for race that conforms to the NKF-ASN Task Force Recommendations. Performed By: #### 4 6449 #### LAB [address] [place], [place] [address] Jack Mendoza M.D. [id number] Anion gap [Moles/Vol] 8 mmol/L Low 10-20 [facility] Comment on above: Order Comment: [facility] has implemented the eGFR calculation approach that does not have a coefficient for race that conforms to the NKF-ASN Task Force Recommendations. Performed By: #### 4 6449 #### LAB [address] [place], [place] [address] Jack Mendoza M.D. [id number] Calcium [Mass/Vol] 8.4 mg/dL Normal 8.4-10.2 [facility] Comment on above: Order Comment: [facility] has implemented the eGFR calculation approach that does not have a coefficient for race that conforms to the NKF-ASN Task Force Recommendations. Performed By: #### 4 6449 #### LAB [address] [place], [place] [address] Jack Mendoza M.D. [id number] Chloride [Moles/Vol] 95 mmol/L Low 98-108 [facility] Comment on above: Order Comment: [facility] has implemented the eGFR calculation approach that does not have a coefficient for race that conforms to the NKF-ASN Task Force Recommendations. Performed By: #### 4 6449 #### LAB [address] [place], [place] [address] Jack Mendoza M.D. [id number] Creatinine [Mass/Vol] 0.51 mg/dL Normal 0.50-1.30 [facility] Comment on above: Order Comment: [facility] has implemented the eGFR calculation approach that does not have a coefficient for race that conforms to the NKF-ASN Task Force Recommendations. Performed By: #### 4 6449 #### LAB [address] [address] Jack Mendoza M.D. [id number] EGFR 118 mL/min/1.73 m2 Normal >=60 [facility] Comment on above: Order Comment: [facility] has implemented the eGFR calculation approach that does not have a coefficient for race that conforms to the NKF-ASN Task Force Recommendations. Result Comment: Ashley mated GFR was calculated using the 2020 CKD-EPI creatinine equation. Performed By: #### 4 6449 #### LAB [address] [address] Jack Mendoza M.D. [id number] Glucose [Mass/Vol] 172 mg/dL High 65-99 [facility] Comment on above: Order Comment: [facility] has implemented the eGFR calculation approach that does not have a coefficient for race that conforms to the NKF-ASN Task Force Recommendations. Performed By: #### 4 6449 #### LAB [address] [address] Jack Mendoza M.D. [id number] HCO3 (Bld) [Moles/Vol] 36 mmol/L High 21-32 [facility] Comment on above: Order Comment: [facility] has implemented the eGFR calculation approach that does not have a coefficient for race that conforms to the NKF-ASN Task Force Recommendations. Performed By: #### 4 6449 #### LAB [address] [address] Jack Mendoza M.D. [id number] Phosphate [Mass/Vol] 2.6 mg/dL Low 2.7-4.5 [facility] Comment on above: Order Comment: [facility] has implemented the eGFR calculation approach that does not have a coefficient for race that conforms to the NKF-ASN Task Force Recommendations. Performed By: #### 4 6449 #### LAB [address] [address] Jack Mendoza M.D. [id number] Potassium [Moles/Vol] 4.5 mmol/L Normal 3.5-5.1 [facility] Comment on above: Order Comment: [facility] has implemented the eGFR calculation approach that does not have a coefficient for race that conforms to the NKF-ASN Task Force Recommendations. Performed By: #### 4 6449 #### LAB [address] [address] Jack Mendoza M.D. [id number] Sodium [Moles/Vol] 134 mmol/L Low 135-145 [facility] Comment on above: Order Comment: [facility] has implemented the eGFR calculation approach that does not have a coefficient for race that conforms to the NKF-ASN Task Force Recommendations. Performed By: #### 4 6449 #### LAB [address] [address] Jack Mendoza M.D. [id number] Urea nitrogen [Mass/Vol] 12 mg/dL Normal 8-25 [facility] Comment on above: Order Comment: [facility] has implemented the eGFR calculation approach that does not have a coefficient for race that conforms to the NKF-ASN Task Force Recommendations. Performed By: #### 4 6449 #### LAB [address] [address] Jack Mendoza M.D. [id number] Urea nitrogen/Creatinine [Mass ratio] 23.5 mg/mg High 10.0-20.0 [facility] Comment on above: Order Comment: [facility] has implemented the eGFR calculation approach that does not have a coefficient for race that conforms to the NKF-ASN Task Force Recommendations. Performed By: #### 4 6449 #### LAB [address] [place], [place] [address] Jack Mendoza M.D. [id number] SEDIMENTATION RATEon 11-10-2 025 SEDIMENTATION RATE, ERYTHROCYTE 56 mm/hr High 0-20 [facility] Comment on above: Performed By: #### 4 6477 #### LAB [address] [address] Jack Mendoza M.D. [id number] TISSUE EXAMon 07-01-2025 TISSUE EXAM Normal [facility] Comment on above: Performed By: #### 4 7015 #### LAB [address] [address] Jack Mendoza M.D. [id number] XR KNEE RIGHT 2 VIEWS (STAND NO)on 07-01-2025 XR KNEE RIGHT 2 VIEWS (STANDARD) Normal [facility] Comment on above: Order Comment: Injur y/Trauma or Illness?:Illness/OtherHow long have you had these symptoms (acute/chronic)?:AcuteReason for exam?:post op right kneeHistory of cancer?:uSurgeries, chemotherapy, or radiation?:uType of Exam?:InitialAdditional signs and symptoms?:. CBC WITH AUTO DIFFERENTIALon 06-30-2025 AUTO NRBC 0.0 % Normal [facility] Comment on above: Performed By: #### L [id number] ####[facility] [address] [address] Jack Mendoza M.D. [id number] AUTO NRBC ABS COUNT 0.00 K/mcL Normal 0.00-0.00 [facility] Comment on above: Performed By: #### L [id number] ####[facility] [address] [address] Jack Mendoza M.D. [id number] Erythrocyte distribution width (RBC) [Ratio] 18.8 % High 11.6-14.8 [facility] Comment on above: Performed By: #### L [id number] ####[facility] [address] [address] Jack Mendoza M.D. [id number] Hematocrit (Bld) [Volume fraction] 39.1 % Low 41.0-53.0 [facility] Comment on above: Performed By: #### L [id number] #### LAB [address] [address] Jack Mendoza M.D. [id number] Hemoglobin (Bld) [Mass/Vol] 11.6 g/dL Low 13.5-17.5 [facility] Comment on above: Performed By: #### L [id number] ####[facility] [address] [address] Jack Mendoza M.D. [id number] MCH (RBC) [Entitic mass] 20.7 pg Low 26.0-34.0 [facility] Comment on above: Performed By: #### L [id number] #### LAB [address] [address] Jack Mendoza M.D. [id number] MCV (RBC) [Entitic vol] 69.7 fL Low 80.0-100.0 [facility] Comment on above: Performed By: #### L [id number] #### LAB [address] [address] Jack Mendoza M.D. [id number] MEAN CORPUSCULAR HEMOGLOBIN CONC 29.7 g/dL Low 31.0-37.0 [facility] Comment on above: Performed By: #### L [id number] #### LAB [address] [address] Jack Mendoza M.D. [id number] Platelets (Bld) [#/Vol] 110 10*3/uL Low 150-400 [facility] Comment on above: Performed By: #### L [id number] #### LAB [address] [place] [address] Jack Mendoza M.D. [id number] RBC (Bld) [#/Vol] 5.61 10*6/uL Normal 4.50-5.90 [facility] Comment on above: Performed By: #### L [id number] ####[facility] [address] [address] Jack Mendoza M.D. [id number] WBC (Bld) [#/Vol] 3.23 10*3/uL Low 4.50-11.00 [facility] Comment on above: Performed By: #### L [id number] #### LAB [address] [place] [address] Jack Mendoza M.D. [id number] H AND Mike 11-09-2025 H AND P Normal [facility] HEMOGLOBIN A1Con 06-30-2025 Glucose [Mass/Vol] 126 mg/dL High 74-114 [facility] Comment on above: Performed By: #### 4 8202 #### LAB [address] [address] Jack Mendoza M.D. [id number] HbA1c (Bld) [Mass fraction] 6.0 % High 4.2-5.6 [facility] Comment on above: Performed By: #### 4 8202 #### LAB [address] [address] Jack Mendoza M.D. [id number] HIV 1/2 SCREEN ( GENERA ON)on 06-30-2025 HIV 1-2 SCREEN Negative Normal Negative [facility] Comment on above: Order Comment: This assay screens for the presence of HIV-1, HIV-2 antibodies and for the presence of HIV-1 antigen.Test performed using Shen SOHAM immunoassay system Performed By: #### 4 5928 ####[facility] [address] [place] [address] Venancio Richardson M.D. [id number] MAGNESIUM LEVELon 06-30-2025 Magnesium [Mass/Vol] 1.7 mg/dL Normal 1.6-2.4 [facility] Comment on above: Performed By: #### 4 6109 ####[facility] [address] [address] Jack Mendoza M.D. [id number] MANUAL DIFFERENTIALon 2024 BASOPHILS - ABS (DIFF) 0.00 K/mcL Normal 0.00-0.30 [facility] Comment on above: Performed By: #### 4 5456 ####[facility] [address] [address] Jack Mendoza M.D. [id number] BASOPHILS - REL (DIFF) 0.0 % Normal [facility] Comment on above: Performed By: #### 4 5456 #### LAB [address] [address] Jack Mendoza M.D. [id number] EOSINOPHILS - ABS (DIFF) 0.00 K/mcL Normal 0.00-0.50 [facility] Comment on above: Performed By: #### 4 5456 #### LAB [address] [address] Jack Mendoza M.D. [id number] EOSINOPHILS - REL (DIFF) 0.0 % [facility] Comment on above: Performed By: #### 4 5456 #### LAB [address] [address] Jack Mendoza M.D. [id number] LYMPHOCYTE ATYPICAL - REL (DIFF) 5.0 % [facility] Comment on above: Performed By: #### 4 5456 #### LAB [address] [address] Jack Mendoza M.D. [id number] LYMPHOCYTES - ABS (DIFF) 0.74 K/mcL Low 0.90-4.00 [facility] Comment on above: Performed By: #### 4 8056 #### LAB [address] [address] Jack Mendoza M.D. [id number] LYMPHOCYTES - REL (DIFF) 18.0 % [facility] Comment on above: Performed By: #### 4 5464 #### LAB [address] [address] Jack Mendoza M.D. [id number] MONOCYTES - ABS (DIFF) 0.13 K/mcL Low 0.30-0.90 [facility] Comment on above: Performed By: #### 4 7256 #### LAB [address] [address] Jack Mendoza M.D. [id number] MONOCYTES - REL (DIFF) 4.0 % [facility] Comment on above: Performed By: #### 4 2262 #### LAB [address] [address] Jack Mendoza M.D. [id number] NEUTROPHILS - ABS (DIFF) 2.36 K/mcL Normal 1.70-7.00 [facility] Comment on above: Performed By: #### 4 5456 #### LAB [address] [address] Jack Mendoza M.D. [id number] NEUTROPHILS - REL (DIFF) 73.0 % Normal [facility] Comment on above: Performed By: #### 4 5456 ####[facility] [address] [address] Jack Mendoza M.D. [id number] MORPHOLOGYon 06-30-2025 OVAL SCAN Moderate Normal [facility] Comment on above: Performed By: #### L [id number] ####[facility] [address] [address] Jack Mendoza M.D. [id number] PLATELET ESTIMATE Decreased Abnormal Normal [facility] Comment on above: Performed By: #### L AB295 ####[facility] [address] [address] Jack Mendoza M.D. [id number] RBC MORPH SCAN See Comment Normal [facility] Comment on above: Result Comment: RBC Indices confirmed with manual peripheral smear review. Performed By: #### L AB295 ####[facility] [address] [address] Jack Mendoza M.D. [id number] TARGET CELL SCAN Moderate Normal [facility] Comment on above: Performed By: #### L AB295 ####[facility] [address] [address] Jack Mendoza M.D. [id number] NT PRO BNPon 06-30-2025 Natriuretic peptide B (Bld) [Mass/Vol] 55 pg/mL Normal 0-300 [facility] Comment on above: Order Comment: Pride Study Cut-offsRule In:< /= 50 Years >450 pg/mL51 Years - 75 Years >900 pg/mL76 Years - 99 Years >1800 pg/mLRule Out:All patients <300 pg/mL Performed By: #### 4 7395 ####[facility] [address] [address] Jack Mendoza M.D. [id number] [facility] Glucose [Mass/Vol] 141 mg/dL High 65-99 [facility] RENAL FUNCTION PANELon 06-30 Albumin [Mass/Vol] 3.2 g/dL Normal 3.2-5.2 [facility] Comment on above: Order Comment: [facility] has implemented the eGFR calculation approach that does not have a coefficient for race that conforms to the NKF-ASN Task Force Recommendations. Performed By: #### 4 6449 #### LAB [address] [place], [place] [address] Jack eMndoza M.D. [id number] Anion gap [Moles/Vol] 11 mmol/L Normal 10-20 [facility] Comment on above: Order Comment: [facility] has implemented the eGFR calculation approach that does not have a coefficient for race that conforms to the NKF-ASN Task Force Recommendations. Performed By: #### 4 6449 #### LAB [address] [place], [place] [address] Jack Mendoza M.D. [id number] Calcium [Mass/Vol] 8.5 mg/dL Normal 8.4-10.2 [facility] Comment on above: Order Comment: [facility] has implemented the eGFR calculation approach that does not have a coefficient for race that conforms to the NKF-ASN Task Force Recommendations. Performed By: #### 4 6449 #### LAB [address] [place], [place] [address] Jack Mendoza M.D. [id number] Chloride [Moles/Vol] 95 mmol/L Low 98-108 [facility] Comment on above: Order Comment: [facility] has implemented the eGFR calculation approach that does not have a coefficient for race that conforms to the NKF-ASN Task Force Recommendations. Performed By: #### 4 6449 #### LAB [address] [place], [place] [address] Jack Mendoza M.D. [id number] Creatinine [Mass/Vol] 0.51 mg/dL Normal 0.50-1.30 [facility] Comment on above: Order Comment: [facility] has implemented the eGFR calculation approach that does not have a coefficient for race that conforms to the NKF-ASN Task Force Recommendations. Performed By: #### 4 6449 #### LAB [address] [place], [place] [address] Jack Mendoza M.D. [id number] EGFR 118 mL/min/1.73 m2 Normal >=60 [facility] Comment on above: Order Comment: [facility] has implemented the eGFR calculation approach that does not have a coefficient for race that conforms to the NKF-ASN Task Force Recommendations. Result Comment: Ashley mated GFR was calculated using the 2020 CKD-EPI creatinine equation. Performed By: #### 4 6449 #### LAB [address] [place], [place] [address] Jack Mendoza M.D. [id number] Glucose [Mass/Vol] 122 mg/dL High 65-99 [facility] Comment on above: Order Comment: [facility] has implemented the eGFR calculation approach that does not have a coefficient for race that conforms to the NKF-ASN Task Force Recommendations. Performed By: #### 4 6449 #### LAB [address] [place], [place] [address] Jack Mendoza M.D. [id number] HCO3 (Bld) [Moles/Vol] 31 mmol/L Normal 21-32 [facility] Comment on above: Order Comment: [facility] has implemented the eGFR calculation approach that does not have a coefficient for race that conforms to the NKF-ASN Task Force Recommendations. Performed By: #### 4 6449 ####[facility] [address] [place], [place] [address] Jack Mendoza M.D. [id number] Phosphate [Mass/Vol] 3.1 mg/dL Normal 2.7-4.5 [facility] Comment on above: Order Comment: [facility] has implemented the eGFR calculation approach that does not have a coefficient for race that conforms to the NKF-ASN Task Force Recommendations. Performed By: #### 4 6449 ####[facility] [address] [place], [place] [address] Jack Mendoza M.D. [id number] Potassium [Moles/Vol] 5.2 mmol/L High 3.5-5.1 [facility] Comment on above: Order Comment: [facility] has implemented the eGFR calculation approach that does not have a coefficient for race that conforms to the NKF-ASN Task Force Recommendations. Result Comment: Slig htly Hemolyzed Performed By: #### 4 6449 #### LAB [address] [place], [place] [address] Jack Mendoza M.D. [id number] Sodium [Moles/Vol] 132 mmol/L Low 135-145 [facility] Comment on above: Order Comment: [facility] has implemented the eGFR calculation approach that does not have a coefficient for race that conforms to the NKF-ASN Task Force Recommendations. Performed By: #### 4 6449 #### LAB [address] [address] Jack Mendoza M.D. [id number] Urea nitrogen [Mass/Vol] 12 mg/dL Normal 8-25 [facility] Comment on above: Order Comment: [facility] has implemented the eGFR calculation approach that does not have a coefficient for race that conforms to the NKF-ASN Task Force Recommendations. Performed By: #### 4 6449 #### LAB [address] [place], [place] [address] Jack Mendoza M.D. [id number] Urea nitrogen/Creatinine [Mass ratio] 23.5 mg/mg High 10.0-20.0 [facility] Comment on above: Order Comment: [facility] has implemented the eGFR calculation approach that does not have a coefficient for race that conforms to the NKF-ASN Task Force Recommendations. Performed By: #### 4 6449 #### LAB [address] [place], [place] [address] Jack Mendoza M.D. [id number] XR CHEST PA/APon 06-30-2025 XR CHEST PA/AP Normal [facility] Comment on above: Order Comment: Injur y/Trauma or Illness?:Illness/OtherHow long have you had these symptoms (acute/chronic)?:AcuteReason for exam?:SOB, concern for CHF exacerbationHistory of cancer?:uSurgeries, chemotherapy, or radiation?:uType of Exam?:InitialAdditional signs and symptoms?:. BASIC METABOLIC PANELon 09-09 26-2024 Anion gap [Moles/Vol] 10 mmol/L Normal 10-20 [facility] Comment on above: Order Comment: [facility] has implemented the eGFR calculation approach that does not have a coefficient for race that conforms to the NKF-ASN Task Force Recommendations. Performed By: #### 4 6124 #### LAB [address] [address] Jack Mendoza M.D. [id number] Calcium [Mass/Vol] 8.5 mg/dL Normal 8.4-10.2 [facility] Comment on above: Order Comment: [facility] has implemented the eGFR calculation approach that does not have a coefficient for race that conforms to the NKF-ASN Task Force Recommendations. Performed By: #### 4 6124 #### LAB [address] [address] Jack Mendoza M.D. [id number] Chloride [Moles/Vol] 99 mmol/L Normal 98-108 [facility] Comment on above: Order Comment: [facility] has implemented the eGFR calculation approach that does not have a coefficient for race that conforms to the NKF-ASN Task Force Recommendations. Performed By: #### 4 6124 #### LAB [address] [address] Jack Mendoza M.D. [id number] Creatinine [Mass/Vol] 0.55 mg/dL Normal 0.50-1.30 [facility] Comment on above: Order Comment: [facility] has implemented the eGFR calculation approach that does not have a coefficient for race that conforms to the NKF-ASN Task Force Recommendations. Performed By: #### 4 6124 #### LAB [address] [address] Jack Mendoza M.D. [id number] EGFR 115 mL/min/1.73 m2 Normal >=60 [facility] Comment on above: Order Comment: [facility] has implemented the eGFR calculation approach that does not have a coefficient for race that conforms to the NKF-ASN Task Force Recommendations. Result Comment: Ashley mated GFR was calculated using the 2020 CKD-EPI creatinine equation. Performed By: #### 4 6124 #### LAB [address] [address] Jack Mendoza M.D. [id number] Glucose [Mass/Vol] 115 mg/dL High 65-99 [facility] Comment on above: Order Comment: [facility] has implemented the eGFR calculation approach that does not have a coefficient for race that conforms to the NKF-ASN Task Force Recommendations. Performed By: #### 4 6124 #### LAB [address] [address] Jack Mendoza M.D. [id number] HCO3 (Bld) [Moles/Vol] 29 mmol/L Normal 21-32 [facility] Comment on above: Order Comment: [facility] has implemented the eGFR calculation approach that does not have a coefficient for race that conforms to the NKF-ASN Task Force Recommendations. Performed By: #### 4 6124 #### LAB [address] [address] Jack Mendoza M.D. [id number] Potassium [Moles/Vol] 4.4 mmol/L Normal 3.5-5.1 [facility] Comment on above: Order Comment: [facility] has implemented the eGFR calculation approach that does not have a coefficient for race that conforms to the NKF-ASN Task Force Recommendations. Performed By: #### 4 6106 #### LAB [address] [address] Jack Mendoza M.D. [id number] Sodium [Moles/Vol] 134 mmol/L Low 135-145 [facility] Comment on above: Order Comment: [facility] has implemented the eGFR calculation approach that does not have a coefficient for race that conforms to the NKF-ASN Task Force Recommendations. Performed By: #### 4 6124 #### LAB [address] [place], [place] [address] Jack Mendoza M.D. [id number] Urea nitrogen [Mass/Vol] 12 mg/dL Normal 8-25 [facility] Comment on above: Order Comment: [facility] has implemented the eGFR calculation approach that does not have a coefficient for race that conforms to the NKF-ASN Task Force Recommendations. Performed By: #### 4 6124 #### LAB [address] [place], [place] [address] Jack Mendoza M.D. [id number] Urea nitrogen/Creatinine [Mass ratio] 21.8 mg/mg High 10.0-20.0 [facility] Comment on above: Order Comment: [facility] has implemented the eGFR calculation approach that does not have a coefficient for race that conforms to the NKF-ASN Task Force Recommendations. Performed By: #### 4 6124 #### LAB [address] [place], [place] [address] Jack Mendoza M.D. [id number] Basic metabolic 2000 panelon 05-16-2025 Anion gap [Moles/Vol] 10 mmol/L 10 - 20 mmol/L [facility] Calcium [Mass/Vol] 8.5 mg/dL 8.4 - 10. 2 mg/dL [facility] Chloride [Moles/Vol] 99 mmol/L 98 - 10 8 mmol/L [facility] Creatinine [Mass/Vol] 0.55 mg/dL 0.50 - 1.30 mg/dL [facility] GFR/1.73 sq M.predicted CKD-EPI (S/P/Bld) [Vol rate/Area] 115 - PINF [facility] Comment on above: Estimated GFR was ca lculated using the 2020 CKD-EPI creatinine equation. Glucose [Mass/Vol] 115 mg/dL High 65 - 99 mg/dL [facility] HCO3 [Moles/Vol] 29 mmol/L 21 - 32 mmol/L [facility] Interpretation and review of laboratory results Abnormal [facility] Potassium [Moles/Vol] 4.4 mmol/L 3.5 - 5.1 mmol/L [facility] Sodium [Moles/Vol] 134 mmol/L Low 135 - 145 mmol/L [facility] Urea nitrogen [Mass/Vol] 12 mg/dL 8 - 25 mg/dL [facility] Urea nitrogen/Creatinine [Mass ratio] 21.8 mg/mg High 10.0 - 20.0 [facility] has implemented the eGFR calculation approach that does not have a coefficient for race that conforms to the NKF-ASN Task Force Recommendations. [facility] CBCon 05-16-2025 AUTO NRBC 0.0 % Normal [facility] Comment on above: Performed By: #### 4 [id number] #### LAB [address] [address] Jack Mendoza M.D. [id number] AUTO NRBC ABS COUNT 0.00 K/mcL Normal 0.00-0.00 [facility] Comment on above: Performed By: #### 4 [id number] #### LAB [address] [address] Jack Mendoza M.D. [id number] Erythrocyte distribution width (RBC) [Ratio] 15.9 % High 11.6-14.8 [facility] Comment on above: Performed By: #### 4 [id number] #### LAB [address] [address] Jack Mendoza M.D. [id number] Hematocrit (Bld) [Volume fraction] 37.1 % Low 41.0-53.0 [facility] Comment on above: Performed By: #### 4 [id number] #### LAB [address] [address] Jack Mendoza M.D. [id number] Hemoglobin (Bld) [Mass/Vol] 11.3 g/dL Low 13.5-17.5 [facility] Comment on above: Performed By: #### 4 [id number] #### LAB [address] [address] Jack Mendoza M.D. [id number] MCH (RBC) [Entitic mass] 21.1 pg Low 26.0-34.0 [facility] Comment on above: Performed By: #### 4 [id number] #### LAB [address] [address] Jack Mendoza M.D. [id number] MCV (RBC) [Entitic vol] 69.2 fL Low 80.0-100.0 [facility] Comment on above: Performed By: #### 4 [id number] #### LAB [address] [address] Jack Mendoza M.D. [id number] MEAN CORPUSCULAR HEMOGLOBIN CONC 30.5 g/dL Low 31.0-37.0 [facility] Comment on above: Performed By: #### 4 [id number] #### LAB [address] [address] Jack Mendoza M.D. [id number] Platelets (Bld) [#/Vol] 120 10*3/uL Low 150-400 [facility] Comment on above: Performed By: #### 4 [id number] #### LAB [address] [address] Jack Mendoza M.D. [id number] RBC (Bld) [#/Vol] 5.36 10*6/uL Normal 4.50-5.90 [facility] Comment on above: Performed By: #### 4 [id number] #### LAB [address] [address] Jack Mendoza M.D. [id number] WBC (Bld) [#/Vol] 3.11 10*3/uL Low 4.50-11.00 [facility] Comment on above: Performed By: #### 4 [id number] #### LAB [address] [address] Jack Mendoza M.D. [id number] CBC panel Auto (Bld)on 05-16 Erythrocyte distribution width (RBC) [Entitic vol] 15.9 % High 11.6 - 14.8 % [facility] Hematocrit (Bld) [Volume fraction] 37.1 % Low 41.0 - 53.0 % [facility] Hemoglobin (Bld) [Mass/Vol] 11.3 g/dL Low 13.5 - 17.5 g/dL [facility] Interpretation and review of laboratory results Abnormal [facility] MCH (RBC) [Entitic mass] 21.1 pg Low 26.0 - 34.0 pg [facility] MCHC (RBC) [Mass/Vol] 30.5 g/dL Low 31.0 - 37.0 g/dL [facility] MCV (RBC) [Entitic vol] 69.2 fL Low 80.0 - 100.0 fL [facility] Nucleated RBC (Bld) [#/Vol] 0 10*3/uL [facility] Nucleated RBC/100 WBC (Bld) [Ratio] 0 % [facility] Platelets (Bld) [#/Vol] 120 10*3/uL Low [facility] RBC (Bld) [#/Vol] 5.36 10*6/uL [facility] WBC (Bld) [#/Vol] 3.11 10*3/uL Low [facility] eah [facility] Disch Summon 05-16-2025 Disch Summ Normal [facility] Glucose (Bld) [Mass/Vol]on 0 05-16-2025 Glucose [Mass/Vol] 99 mg/dL 65 - 99 mg/dL [facility] Interpretation and review of laboratory results Normal [facility] Glucose [Mass/Vol] 126 mg/dL High 65 - 99 mg/dL [facility] Interpretation and review of laboratory results Abnormal [facility] MAGNESIUM LEVELon 05-16-2025 Magnesium [Mass/Vol] 1.9 mg/dL Normal 1.6-2.4 [facility] Comment on above: Performed By: #### 4 6109 #### LAB [address] [place], [place] [address] Jack Mendoza M.D. [id number] Magnesium Levelon 05-16-2025 Magnesium [Mass/Vol] 1.9 mg/dL 1.6 - 2 .4 mg/dL [facility] Magnesium [Mass/Vol]on 05-16 Interpretation and review of laboratory results Normal [facility] No Panel Informationon 05-16 [facility] POC GLUCOSE - [place] 025 Glucose [Mass/Vol] 99 mg/dL Normal 65-99 [facility] Glucose [Mass/Vol] 126 mg/dL High 65-99 [facility] BASIC METABOLIC PANELon 04-23 Anion gap [Moles/Vol] 11 mmol/L Normal 10-20 [facility] Comment on above: Order Comment: [facility] has implemented the eGFR calculation approach that does not have a coefficient for race that conforms to the NKF-ASN Task Force Recommendations. Performed By: #### 4 6124 #### LAB [address] [place], [place] [address] Jack Mendoza M.D. [id number] Calcium [Mass/Vol] 8.2 mg/dL Low 8.4-10.2 [facility] Comment on above: Order Comment: [facility] has implemented the eGFR calculation approach that does not have a coefficient for race that conforms to the NKF-ASN Task Force Recommendations. Performed By: #### 4 6124 #### LAB [address] [address] Jack Mendoza M.D. [id number] Chloride [Moles/Vol] 100 mmol/L Normal 98-108 [facility] Comment on above: Order Comment: [facility] has implemented the eGFR calculation approach that does not have a coefficient for race that conforms to the NKF-ASN Task Force Recommendations. Performed By: #### 4 6124 #### LAB [address] [address] Jack Mendoza M.D. [id number] Creatinine [Mass/Vol] 0.52 mg/dL Normal 0.50-1.30 [facility] Comment on above: Order Comment: [facility] has implemented the eGFR calculation approach that does not have a coefficient for race that conforms to the NKF-ASN Task Force Recommendations. Performed By: #### 4 6124 #### LAB [address] [place], [place] [address] Jack Mendoza M.D. [id number] EGFR 117 mL/min/1.73 m2 Normal >=60 [facility] Comment on above: Order Comment: [facility] has implemented the eGFR calculation approach that does not have a coefficient for race that conforms to the NKF-ASN Task Force Recommendations. Result Comment: Ashley mated GFR was calculated using the 2020 CKD-EPI creatinine equation. Performed By: #### 4 6124 ####[facility] [address] [address] Jack Mendoza M.D. [id number] Glucose [Mass/Vol] 143 mg/dL High 65-99 [facility] Comment on above: Order Comment: [facility] has implemented the eGFR calculation approach that does not have a coefficient for race that conforms to the NKF-ASN Task Force Recommendations. Performed By: #### 4 6124 ####[facility] [address] [address] Jack Mendoza M.D. [id number] HCO3 (Bld) [Moles/Vol] 29 mmol/L Normal 21-32 [facility] Comment on above: Order Comment: [facility] has implemented the eGFR calculation approach that does not have a coefficient for race that conforms to the NKF-ASN Task Force Recommendations. Performed By: #### 4 6124 #### LAB [address] [address] Jack Mendoza M.D. [id number] Potassium [Moles/Vol] 4.3 mmol/L Normal 3.5-5.1 [facility] Comment on above: Order Comment: [facility] has implemented the eGFR calculation approach that does not have a coefficient for race that conforms to the NKF-ASN Task Force Recommendations. Performed By: #### 4 6124 ####[facility] [address] [address] Jack Mendoza M.D. [id number] Sodium [Moles/Vol] 136 mmol/L Normal 135-145 [facility] Comment on above: Order Comment: [facility] has implemented the eGFR calculation approach that does not have a coefficient for race that conforms to the NKF-ASN Task Force Recommendations. Performed By: #### 4 6124 ####[facility] [address] [address] Jack Mendoza M.D. [id number] Urea nitrogen [Mass/Vol] 12 mg/dL Normal 8-25 [facility] Comment on above: Order Comment: [facility] has implemented the eGFR calculation approach that does not have a coefficient for race that conforms to the NKF-ASN Task Force Recommendations. Performed By: #### 4 6124 #### LAB [address] [place], [place] [address] Jack Mendoza M.D. [id number] Urea nitrogen/Creatinine [Mass ratio] 23.1 mg/mg High 10.0-20.0 [facility] Comment on above: Order Comment: [facility] has implemented the eGFR calculation approach that does not have a coefficient for race that conforms to the NKF-ASN Task Force Recommendations. Performed By: #### 4 6124 #### LAB [address] [place], [place] [address] Jack Mendoza M.D. [id number] Basic metabolic 2000 panelon 05-15-2025 Anion gap [Moles/Vol] 11 mmol/L 10 - 20 mmol/L [facility] Calcium [Mass/Vol] 8.2 mg/dL Low 8.4 - 10. 2 mg/dL [facility] Chloride [Moles/Vol] 100 mmol/L 98 - 10 8 mmol/L [facility] Creatinine [Mass/Vol] 0.52 mg/dL 0.50 - 1.30 mg/dL [facility] GFR/1.73 sq M.predicted CKD-EPI (S/P/Bld) [Vol rate/Area] 117 - PINF [facility] Comment on above: Estimated GFR was ca lculated using the 2020 CKD-EPI creatinine equation. Glucose [Mass/Vol] 143 mg/dL High 65 - 99 mg/dL [facility] HCO3 [Moles/Vol] 29 mmol/L 21 - 32 mmol/L [facility] Interpretation and review of laboratory results Abnormal [facility] Potassium [Moles/Vol] 4.3 mmol/L 3.5 - 5.1 mmol/L [facility] Sodium [Moles/Vol] 136 mmol/L 135 - 145 mmol/L [facility] Urea nitrogen [Mass/Vol] 12 mg/dL 8 - 25 mg/dL [facility] Urea nitrogen/Creatinine [Mass ratio] 23.1 mg/mg High 10.0 - 20.0 [facility] y Services has implemented the eGFR calculation approach that does not have a coefficient for race that conforms to the NKF-ASN Task Force Recommendations. [facility] CBCon 05-15-2025 AUTO NRBC 0.0 % Normal [facility] Comment on above: Performed By: #### 4 [id number] #### LAB [address] [address] Jack Mendoza M.D. [id number] AUTO NRBC ABS COUNT 0.00 K/mcL Normal 0.00-0.00 [facility] Comment on above: Performed By: #### 4 [id number] ####[facility] [address] [address] Jack Mendoza M.D. [id number] Erythrocyte distribution width (RBC) [Ratio] 15.8 % High 11.6-14.8 [facility] Comment on above: Performed By: #### 4 [id number] ####[facility] [address] [address] Jack Mendoza M.D. [id number] Hematocrit (Bld) [Volume fraction] 34.7 % Low 41.0-53.0 [facility] Comment on above: Performed By: #### 4 [id number] #### LAB [address] [address] Jack Mendoza M.D. [id number] Hemoglobin (Bld) [Mass/Vol] 10.4 g/dL Low 13.5-17.5 [facility] Comment on above: Performed By: #### 4 [id number] #### LAB [address] [address] Jack Mendoza M.D. [id number] MCH (RBC) [Entitic mass] 20.8 pg Low 26.0-34.0 [facility] Comment on above: Performed By: #### 4 [id number] #### LAB [address] [address] Jack Mendoza M.D. [id number] MCV (RBC) [Entitic vol] 69.5 fL Low 80.0-100.0 [facility] Comment on above: Performed By: #### 4 [id number] #### LAB [address] [place] [address] Jack Mendoza M.D. [id number] MEAN CORPUSCULAR HEMOGLOBIN CONC 30.0 g/dL Low 31.0-37.0 [facility] Comment on above: Performed By: #### 4 [id number] #### LAB [address] [place] [address] Jack Mendoza M.D. [id number] Platelet mean volume (Bld) [Entitic vol] 8.8 fL Low 9.4-12.4 [facility] Comment on above: Performed By: #### 4 [id number] #### LAB [address] [place] [address] Jack Mendoza M.D. [id number] Platelets (Bld) [#/Vol] 113 10*3/uL Low 150-400 [facility] Comment on above: Performed By: #### 4 [id number] #### LAB [address] [place] [address] Jack Mendoza M.D. [id number] RBC (Bld) [#/Vol] 4.99 10*6/uL Normal 4.50-5.90 [facility] Comment on above: Performed By: #### 4 [id number] #### LAB [address] [address] Jack Mendoza M.D. [id number] WBC (Bld) [#/Vol] 2.55 10*3/uL Low 4.50-11.00 [facility] Comment on above: Performed By: #### 4 [id number] #### LAB [address] [place] [address] Jack Mendoza M.D. [id number] CBC panel Auto (Bld)on 05-15 Erythrocyte distribution width (RBC) [Entitic vol] 15.8 % High 11.6 - 14.8 % [facility] Hematocrit (Bld) [Volume fraction] 34.7 % Low 41.0 - 53.0 % [facility] Hemoglobin (Bld) [Mass/Vol] 10.4 g/dL Low 13.5 - 17.5 g/dL [facility] Interpretation and review of laboratory results Abnormal [facility] MCH (RBC) [Entitic mass] 20.8 pg Low 26.0 - 34.0 pg [facility] MCHC (RBC) [Mass/Vol] 30 g/dL Low 31.0 - 37.0 g/dL [facility] MCV (RBC) [Entitic vol] 69.5 fL Low 80.0 - 100.0 fL [facility] Nucleated RBC (Bld) [#/Vol] 0 10*3/uL [facility] Nucleated RBC/100 WBC (Bld) [Ratio] 0 % [facility] Platelet mean volume (Bld) [Entitic vol] 8.8 fL Low 9.4 - 12.4 fL [facility] Platelets (Bld) [#/Vol] 113 10*3/uL Low [facility] RBC (Bld) [#/Vol] 4.99 10*6/uL [facility] WBC (Bld) [#/Vol] 2.55 10*3/uL Low [facility] Glucose (Bld) [Mass/Vol]on 0 05-15-2025 Glucose [Mass/Vol] 186 mg/dL High 65 - 99 mg/dL [facility] Interpretation and review of laboratory results Abnormal [facility] Glucose [Mass/Vol] 135 mg/dL High 65 - 99 mg/dL [facility] Interpretation and review of laboratory results Abnormal [facility] Glucose [Mass/Vol] 124 mg/dL High 65 - 99 mg/dL [facility] Interpretation and review of laboratory results Abnormal [facility] Glucose [Mass/Vol] 127 mg/dL High 65 - 99 mg/dL [facility] Interpretation and review of laboratory results Abnormal [facility] MAGNESIUM LEVELon 05-15-2025 Magnesium [Mass/Vol] 1.9 mg/dL Normal 1.6-2.4 [facility] Comment on above: Performed By: #### 4 [id number] #### LAB [address] [place], [place] [address] Jack Mendoza M.D. [id number] Magnesium Levelon 05-15-2025 Magnesium [Mass/Vol] 1.9 mg/dL 1.6 - 2 .4 mg/dL [facility] Magnesium [Mass/Vol]on 05-15 Interpretation and review of laboratory results Normal [facility] No Panel Informationon 05-15 [facility] POC GLUCOSE - [facility] 025 Glucose [Mass/Vol] 186 mg/dL High 65-99 [facility] Glucose [Mass/Vol] 135 mg/dL High 65-99 [facility] Glucose [Mass/Vol] 124 mg/dL High 65-99 [facility] Glucose [Mass/Vol] 127 mg/dL High 65- [facility] VANCOMYCIN LEVEL, RANDOMon 0 - VANCOMYCIN RANDOM 23.6 mcg/mL Normal [facility] Comment on above: Order Comment: As of 05/2022 vancomycin dosing for [facility] inpatients will be done by Bayesian dosing software rather than off traditional trough values. Please contact the site specific inpatient pharmacy before making dose changes off of trough values alone for admitted patients.No established reference range. Performed By: #### [id number] #### LAB [address] [place], [place] [address] Jack Mendoza M.D. [id number] Vancomycin Level, Randomon 0 05-15-2025 Vancomycin [Mass/Vol] 23.6 mcg/mL [facility] Vancomycin [Mass/Vol]on 04-23 As of 05/2022 vancom ycin dosing for [facility] inpatients will be done by Bayesian dosing software rather than off traditional trough values. Please contact the site specific inpatient pharmacy before making dose changes off of trough values alone for admitted patients. No established reference range. [facility] BASIC METABOLIC PANELon 04-23 Anion gap [Moles/Vol] 13 mmol/L Normal 10- [facility] Comment on above: Order Comment: [facility] has implemented the eGFR calculation approach that does not have a coefficient for race that conforms to the NKF-ASN Task Force Recommendations. Performed By: #### 4 [id number] ####[facility] [address] [place], [place] [address] Jack Mendoza M.D. [id number] Calcium [Mass/Vol] 8.1 mg/dL Low 8.4-10.2 [facility] Comment on above: Order Comment: [facility] has implemented the eGFR calculation approach that does not have a coefficient for race that conforms to the NKF-ASN Task Force Recommendations. Performed By: #### 4 [id number] ####[facility] [address] [place], [place] [address] Jack Mendoza M.D. [id number] Chloride [Moles/Vol] 99 mmol/L Normal 98-108 [facility] Comment on above: Order Comment: [facility] has implemented the eGFR calculation approach that does not have a coefficient for race that conforms to the NKF-ASN Task Force Recommendations. Performed By: #### 4 [id number] #### LAB [address] [place] [address] Jack Mendoza M.D. [id number] Creatinine [Mass/Vol] 0.57 mg/dL Normal 0.50-1.30 [facility] Comment on above: Order Comment: [facility] has implemented the eGFR calculation approach that does not have a coefficient for race that conforms to the NKF-ASN Task Force Recommendations. Performed By: #### 4 [id number] #### LAB [address] [place] [address] Jack Mendoza M.D. [id number] EGFR 114 mL/min/1.73 m2 Normal >=60 [facility] Comment on above: Order Comment: [facility] has implemented the eGFR calculation approach that does not have a coefficient for race that conforms to the NKF-ASN Task Force Recommendations. Result Comment: Ashley mated GFR was calculated using the 2020 CKD-EPI creatinine equation. Performed By: #### 4 [id number] #### LAB [address] [place] [address] Jack Mendoza M.D. [id number] Glucose [Mass/Vol] 170 mg/dL High 65-99 [facility] Comment on above: Order Comment: [facility] has implemented the eGFR calculation approach that does not have a coefficient for race that conforms to the NKF-ASN Task Force Recommendations. Performed By: #### 4 6124 #### LAB [address] [place] [address] Jack Mendoza M.D. [id number] HCO3 (Bld) [Moles/Vol] 26 mmol/L Normal 21-32 [facility] Comment on above: Order Comment: [facility] has implemented the eGFR calculation approach that does not have a coefficient for race that conforms to the NKF-ASN Task Force Recommendations. Performed By: #### 4 [id number] #### LAB [address] [place] [address] Jack Mendoza M.D. [id number] Potassium [Moles/Vol] 4.1 mmol/L Normal 3.5-5.1 [facility] Comment on above: Order Comment: [facility] has implemented the eGFR calculation approach that does not have a coefficient for race that conforms to the NKF-ASN Task Force Recommendations. Performed By: #### 4 [id number] #### LAB [address] [place] [address] Jack Mendoza M.D. [id number] Sodium [Moles/Vol] 134 mmol/L Low 135-145 [facility] Comment on above: Order Comment: [facility] has implemented the eGFR calculation approach that does not have a coefficient for race that conforms to the NKF-ASN Task Force Recommendations. Performed By: #### 4 [id number] #### LAB [address] [place] [address] Jack Mendoza M.D. [id number] Urea nitrogen [Mass/Vol] 13 mg/dL Normal 8-25 [facility] Comment on above: Order Comment: [facility] has implemented the eGFR calculation approach that does not have a coefficient for race that conforms to the NKF-ASN Task Force Recommendations. Performed By: #### 4 6124 #### LAB [address] [place] [address] Jack Mendoza M.D. [id number] Urea nitrogen/Creatinine [Mass ratio] 22.8 mg/mg High 10.0-20.0 [facility] Comment on above: Order Comment: [facility] has implemented the eGFR calculation approach that does not have a coefficient for race that conforms to the NKF-ASN Task Force Recommendations. Performed By: #### 4 [id number] #### LAB [address] [place] [address] Jack Mendoza M.D. [id number] Basic metabolic 2000 panelon 05-14-2025 Anion gap [Moles/Vol] 13 mmol/L 10 - 20 mmol/L [facility] Calcium [Mass/Vol] 8.1 mg/dL Low 8.4 - 10. 2 mg/dL [facility] Chloride [Moles/Vol] 99 mmol/L 98 - 10 8 mmol/L [facility] Creatinine [Mass/Vol] 0.57 mg/dL 0.50 - 1.30 mg/dL [facility] GFR/1.73 sq M.predicted CKD-EPI (S/P/Bld) [Vol rate/Area] 114 - PINF [facility] Comment on above: Estimated GFR was ca lculated using the 2020 CKD-EPI creatinine equation. Glucose [Mass/Vol] 170 mg/dL High 65 - 99 mg/dL [facility] HCO3 [Moles/Vol] 26 mmol/L 21 - 32 mmol/L [facility] Interpretation and review of laboratory results Abnormal [facility] Potassium [Moles/Vol] 4.1 mmol/L 3.5 - 5.1 mmol/L [facility] Sodium [Moles/Vol] 134 mmol/L Low 135 - 145 mmol/L [facility] Urea nitrogen [Mass/Vol] 13 mg/dL 8 - 25 mg/dL [facility] Urea nitrogen/Creatinine [Mass ratio] 22.8 mg/mg High 10.0 - 20.0 [facility] has implemented the eGFR calculation approach that does not have a coefficient for race that conforms to the NKF-ASN Task Force Recommendations. [facility] CBCon 05-14-2025 AUTO NRBC 0.0 % Normal [facility] Comment on above: Performed By: #### 4 [id number] ####[facility] [address] [place], [place] [address] Jack Mendoza M.D. [id number] AUTO NRBC ABS COUNT 0.00 K/mcL Normal 0.00-0.00 [facility] Comment on above: Performed By: #### 4 [id number] ####[facility] [address] [place], [place] [address] Jack Mendoza M.D. [id number] Erythrocyte distribution width (RBC) [Ratio] 15.5 % High 11.6-14.8 [facility] Comment on above: Performed By: #### 4 [id number] #### LAB [address] [place] [address] Jack Mendoza M.D. [id number] Hematocrit (Bld) [Volume fraction] 35.0 % Low 41.0-53.0 [facility] Comment on above: Performed By: #### 4 [id number] #### LAB [address] [place] [address] Jack Mendoza M.D. [id number] Hemoglobin (Bld) [Mass/Vol] 10.4 g/dL Low 13.5-17.5 [facility] Comment on above: Performed By: #### 4 [id number] #### LAB [address] [place] [address] Jack Mendoza M.D. [id number] MCH (RBC) [Entitic mass] 20.5 pg Low 26.0-34.0 [facility] Comment on above: Performed By: #### 4 [id number] #### LAB [address] [place] [address] Jack Mendoza M.D. [id number] MCV (RBC) [Entitic vol] 68.9 fL Low 80.0-100.0 [facility] Comment on above: Performed By: #### 4 [id number] #### LAB [address] [place] [address] Jack Mendoza M.D. [id number] MEAN CORPUSCULAR HEMOGLOBIN CONC 29.7 g/dL Low 31.0-37.0 [facility] Comment on above: Performed By: #### 4 [id number] #### LAB [address] [place] [address] Jack Mendoza M.D. [id number] Platelets (Bld) [#/Vol] 111 10*3/uL Low 150-400 [facility] Comment on above: Performed By: #### 4 [id number] #### LAB [address] [place] [address] Jack Mendoza M.D. [id number] RBC (Bld) [#/Vol] 5.08 10*6/uL Normal 4.50-5.90 [facility] Comment on above: Performed By: #### 4 [id number] #### LAB [address] [place], [place] [address] Jack Mendoza M.D. [id number] WBC (Bld) [#/Vol] 2.80 10*3/uL Low 4.50-11.00 [facility] Comment on above: Performed By: #### 4 [id number] #### LAB [address] [place], [place] [address] Jack Mendoza M.D. [id number] CBC panel Auto (Bld)on 05-14 Erythrocyte distribution width (RBC) [Entitic vol] 15.5 % High 11.6 - 14.8 % [facility] Hematocrit (Bld) [Volume fraction] 35 % Low 41.0 - 53.0 % [facility] Hemoglobin (Bld) [Mass/Vol] 10.4 g/dL Low 13.5 - 17.5 g/dL [facility] Interpretation and review of laboratory results Abnormal [facility] MCH (RBC) [Entitic mass] 20.5 pg Low 26.0 - 34.0 pg [facility] MCHC (RBC) [Mass/Vol] 29.7 g/dL Low 31.0 - 37.0 g/dL [facility] MCV (RBC) [Entitic vol] 68.9 fL Low 80.0 - 100.0 fL [facility] Nucleated RBC (Bld) [#/Vol] 0 10*3/uL [facility] Nucleated RBC/100 WBC (Bld) [Ratio] 0 % [facility] Platelets (Bld) [#/Vol] 111 10*3/uL Low [facility] RBC (Bld) [#/Vol] 5.08 10*6/uL [facility] WBC (Bld) [#/Vol] 2.8 10*3/uL Low [facility] alth [facility] Glucose (Bld) [Mass/Vol]on 05-14-2025 Glucose [Mass/Vol] 143 mg/dL High 65 - 99 mg/dL [facility] Interpretation and review of laboratory results Abnormal [facility] Glucose [Mass/Vol] 121 mg/dL High 65 - 99 mg/dL [facility] Interpretation and review of laboratory results Abnormal [facility] Glucose [Mass/Vol] 260 mg/dL High 65 - 99 mg/dL [facility] Interpretation and review of laboratory results Abnormal [facility] Glucose [Mass/Vol] 120 mg/dL High 65 - 99 mg/dL [facility] Interpretation and review of laboratory results Abnormal [facility] MAGNESIUM LEVELon 05-14-2025 Magnesium [Mass/Vol] 1.8 mg/dL Normal 1.6-2.4 [facility] Comment on above: Performed By: #### 4 [id number] #### LAB [address] [place], [place] [address] Jack Mendoza M.D. [id number] Magnesium Levelon 05-14-2025 Magnesium [Mass/Vol] 1.8 mg/dL 1.6 - 2 .4 mg/dL [facility] Magnesium [Mass/Vol]on 05-14 Interpretation and review of laboratory results Normal [facility] No Panel Informationon 05-14 [facility] Glucose [Mass/Vol] 143 mg/dL High 65-99 [facility] Glucose [Mass/Vol] 121 mg/dL High 65-99 [facility] Glucose [Mass/Vol] 260 mg/dL High 65-99 [facility] Glucose [Mass/Vol] 120 mg/dL High 65-99 [facility] ALPHA DEFENSINon 05-13-2025 ALPHA DEFENSIN ALPHA DEFENSIN DETECTED Alpha defensin detected suggesting the presence of infection. Additional laboratory studies are recommended. Abnormal [facility] Comment on above: Performed By: #### L [id number] #### LAB [address] [place], [place] [address] Jack Mendoza M.D. [id number] Alpha defensinOrdered By: Marlen Mcintyre on 05-13-2025 Alpha Defensin Detected Abnormal Not Detected [facility] Comment on above: Alpha defensin detec quan suggesting the presence of infection. Additional laboratory studies are recommended. Interpretation and review of laboratory results Abnormal [facility] BASIC METABOLIC PANELon 04-23 Anion gap [Moles/Vol] 12 mmol/L Normal 10-20 [facility] Comment on above: Order Comment: [facility] has implemented the eGFR calculation approach that does not have a coefficient for race that conforms to the NKF-ASN Task Force Recommendations. Performed By: #### 4 [id number] #### LAB [address] [place] [address] Jack Mendoza M.D. [id number] Calcium [Mass/Vol] 8.2 mg/dL Low 8.4-10.2 [facility] Comment on above: Order Comment: [facility] has implemented the eGFR calculation approach that does not have a coefficient for race that conforms to the NKF-ASN Task Force Recommendations. Performed By: #### 4 6124 #### LAB [address] [place] [address] Jack Mendoza M.D. [id number] Chloride [Moles/Vol] 97 mmol/L Low 98-108 [facility] Comment on above: Order Comment: [facility] has implemented the eGFR calculation approach that does not have a coefficient for race that conforms to the NKF-ASN Task Force Recommendations. Performed By: #### 4 6124 #### LAB [address] [place] [address] Jack Mendoza M.D. [id number] Creatinine [Mass/Vol] 0.64 mg/dL Normal 0.50-1.30 [facility] Comment on above: Order Comment: [facility] has implemented the eGFR calculation approach that does not have a coefficient for race that conforms to the NKF-ASN Task Force Recommendations. Performed By: #### 4 6124 #### LAB [address] [place] [address] Jack Mendoza M.D. [id number] EGFR 110 mL/min/1.73 m2 Normal >=60 [facility] Comment on above: Order Comment: [facility] has implemented the eGFR calculation approach that does not have a coefficient for race that conforms to the NKF-ASN Task Force Recommendations. Result Comment: Ashley mated GFR was calculated using the 2020 CKD-EPI creatinine equation. Performed By: #### 4 [id number] #### LAB [address] [place] [address] Jack Mendoza M.D. [id number] Glucose [Mass/Vol] 102 mg/dL High 65-99 [facility] Comment on above: Order Comment: [facility] has implemented the eGFR calculation approach that does not have a coefficient for race that conforms to the NKF-ASN Task Force Recommendations. Performed By: #### 4 6124 #### LAB [address] [place] [address] Jack Mendoza M.D. [id number] HCO3 (Bld) [Moles/Vol] 30 mmol/L Normal 21-32 [facility] Comment on above: Order Comment: [facility] has implemented the eGFR calculation approach that does not have a coefficient for race that conforms to the NKF-ASN Task Force Recommendations. Performed By: #### 4 6124 #### LAB [address] [place] [address] Jack Mendoza M.D. [id number] Potassium [Moles/Vol] 3.4 mmol/L Low 3.5-5.1 [facility] Comment on above: Order Comment: [facility] has implemented the eGFR calculation approach that does not have a coefficient for race that conforms to the NKF-ASN Task Force Recommendations. Performed By: #### 4 6124 #### LAB [address] [place] [address] Jack Mendoza M.D. [id number] Sodium [Moles/Vol] 136 mmol/L Normal 135-145 [facility] Comment on above: Order Comment: [facility] has implemented the eGFR calculation approach that does not have a coefficient for race that conforms to the NKF-ASN Task Force Recommendations. Performed By: #### 4 6124 #### LAB [address] [place] [address] Jack Mendoza M.D. [id number] Urea nitrogen [Mass/Vol] 11 mg/dL Normal 8-25 [facility] Comment on above: Order Comment: [facility] has implemented the eGFR calculation approach that does not have a coefficient for race that conforms to the NKF-ASN Task Force Recommendations. Performed By: #### 4 6124 #### LAB [address] [place], [place] [address] Jack Mendoza M.D. [id number] Urea nitrogen/Creatinine [Mass ratio] 17.2 mg/mg Normal 10.0-20.0 [facility] Comment on above: Order Comment: [facility] has implemented the eGFR calculation approach that does not have a coefficient for race that conforms to the NKF-ASN Task Force Recommendations. Performed By: #### 4 [id number] #### LAB [address] [place], [place] [address] Jack Mendoza M.D. [id number] Basic metabolic 2000 panelon 05-13-2025 Anion gap [Moles/Vol] 12 mmol/L 10 - 20 mmol/L [facility] Calcium [Mass/Vol] 8.2 mg/dL Low 8.4 - 10. 2 mg/dL [facility] Chloride [Moles/Vol] 97 mmol/L Low 98 - 10 8 mmol/L [facility] Creatinine [Mass/Vol] 0.64 mg/dL 0.50 - 1.30 mg/dL [facility] GFR/1.73 sq M.predicted CKD-EPI (S/P/Bld) [Vol rate/Area] 110 - PINF [facility] Comment on above: Estimated GFR was ca lculated using the 2020 CKD-EPI creatinine equation. Glucose [Mass/Vol] 102 mg/dL High 65 - 99 mg/dL [facility] HCO3 [Moles/Vol] 30 mmol/L 21 - 32 mmol/L [facility] Interpretation and review of laboratory results Abnormal [facility] Potassium [Moles/Vol] 3.4 mmol/L Low 3.5 - 5.1 mmol/L [facility] Sodium [Moles/Vol] 136 mmol/L 135 - 145 mmol/L [facility] Urea nitrogen [Mass/Vol] 11 mg/dL 8 - 25 mg/dL [facility] Urea nitrogen/Creatinine [Mass ratio] 17.2 mg/mg 10.0 - 20.0 [facility] has implemented the eGFR calculation approach that does not have a coefficient for race that conforms to the NKF-ASN Task Force Recommendations. [facility] CBCon 05-13-2025 AUTO NRBC 0.0 % Normal [facility] Comment on above: Performed By: #### 4 [id number] #### LAB [address] [place] [address] Jack Mendoza M.D. [id number] AUTO NRBC ABS COUNT 0.00 K/mcL Normal 0.00-0.00 [facility] Comment on above: Performed By: #### 4 [id number] #### LAB [address] [place] [address] Jack Mendoza M.D. [id number] Erythrocyte distribution width (RBC) [Ratio] 15.4 % High 11.6-14.8 [facility] Comment on above: Performed By: #### 4 [id number] #### LAB [address] [place] [address] Jack Mendoza M.D. [id number] Hematocrit (Bld) [Volume fraction] 35.3 % Low 41.0-53.0 [facility] Comment on above: Performed By: #### 4 [id number] #### LAB [address] [place] [address] Jack Mendoza M.D. [id number] Hemoglobin (Bld) [Mass/Vol] 10.7 g/dL Low 13.5-17.5 [facility] Comment on above: Performed By: #### 4 [id number] #### LAB [address] [place] [address] Jack Mendoza M.D. [id number] MCH (RBC) [Entitic mass] 20.7 pg Low 26.0-34.0 [facility] Comment on above: Performed By: #### 4 [id number] #### LAB [address] [place] [address] Jack Mendoza M.D. [id number] MCV (RBC) [Entitic vol] 68.4 fL Low 80.0-100.0 [facility] Comment on above: Performed By: #### 4 [id number] #### LAB [address] [place] [address] Jack Mendoza M.D. [id number] MEAN CORPUSCULAR HEMOGLOBIN CONC 30.3 g/dL Low 31.0-37.0 [facility] Comment on above: Performed By: #### 4 [id number] #### LAB [address] [place] [address] Jack Mendoza M.D. [id number] Platelets (Bld) [#/Vol] 115 10*3/uL Low 150-400 [facility] Comment on above: Performed By: #### 4 [id number] #### LAB [address] [place] [address] Jack Mendoza M.D. [id number] RBC (Bld) [#/Vol] 5.16 10*6/uL Normal 4.50-5.90 [facility] Comment on above: Performed By: #### 4 [id number] #### LAB [address] [place] [address] Jack Mendoza M.D. [id number] WBC (Bld) [#/Vol] 2.82 10*3/uL Low 4.50-11.00 [facility] Comment on above: Performed By: #### 4 [id number] #### LAB [address] [place] [address] Jack Mendoza M.D. [id number] CBC panel Auto (Bld)on 05-13 Erythrocyte distribution width (RBC) [Entitic vol] 15.4 % High 11.6 - 14.8 % [facility] Hematocrit (Bld) [Volume fraction] 35.3 % Low 41.0 - 53.0 % [facility] Hemoglobin (Bld) [Mass/Vol] 10.7 g/dL Low 13.5 - 17.5 g/dL [facility] Interpretation and review of laboratory results Abnormal [facility] MCH (RBC) [Entitic mass] 20.7 pg Low 26.0 - 34.0 pg [facility] MCHC (RBC) [Mass/Vol] 30.3 g/dL Low 31.0 - 37.0 g/dL [facility] MCV (RBC) [Entitic vol] 68.4 fL Low 80.0 - 100.0 fL [facility] Nucleated RBC (Bld) [#/Vol] 0 10*3/uL [facility] Nucleated RBC/100 WBC (Bld) [Ratio] 0 % [facility] Platelets (Bld) [#/Vol] 115 10*3/uL Low [facility] RBC (Bld) [#/Vol] 5.16 10*6/uL [facility] WBC (Bld) [#/Vol] 2.82 10*3/uL Low [facility] Glucose (Bld) [Mass/Vol]on 0 05-13-2025 Glucose [Mass/Vol] 180 mg/dL High 65 - 99 mg/dL [facility] Interpretation and review of laboratory results Abnormal [facility] Glucose [Mass/Vol] 97 mg/dL 65 - 99 mg/dL [facility] Interpretation and review of laboratory results Normal [facility] Glucose [Mass/Vol] 102 mg/dL High 65 - 99 mg/dL [facility] Interpretation and review of laboratory results Abnormal [facility] Glucose [Mass/Vol] 100 mg/dL High 65 - 99 mg/dL [facility] Interpretation and review of laboratory results Abnormal [facility] MAGNESIUM LEVELon 05-13-2025 Magnesium [Mass/Vol] 1.7 mg/dL Normal 1.6-2.4 [facility] Comment on above: Performed By: #### 4 [id number] ####[facility] [address] [place], [place] [address] Jack Mendoza M.D. [id number] MRSA DNA Amplified ProbeOrde red By: Brianna Predum on 05-13-2025 MRSA DNA HERMAN+probe Ql (Unsp spec) Not detected Not Detected, MRSA NEGATIVE [facility] MRSA DNA HERMAN+probe Ql (Unsp spec)Ordered By: Brianna Predum on 05-13-2025 Interpretation and review of laboratory results Normal [facility] Magnesium Levelon 05-13-2025 Magnesium [Mass/Vol] 1.7 mg/dL 1.6 - 2 .4 mg/dL [facility] Magnesium [Mass/Vol]on 05-13 Interpretation and review of laboratory results Normal [facility] No Panel Informationon 05-13 [facility] OP NOTEon 05-13-2025 OP NOTE Normal [facility] POC GLUCOSE - Shannon 025 Glucose [Mass/Vol] 180 mg/dL High 65-99 [facility] Glucose [Mass/Vol] 97 mg/dL Normal 65-99 [facility] Glucose [Mass/Vol] 102 mg/dL High 65-99 [facility] Glucose [Mass/Vol] 100 mg/dL High 65-99 [facility] SURGICAL SITE AEROBIC AND AN AEROBIC CULTUREon 05-13-2025 SURGICAL SITE AEROBIC AND ANAEROBIC CULTURE CULTURE No Anaerobic Growth after 5 days CORYNEBACTERIUM SPECIES Rare growth Corynebacterium species, not JK GRAM STAIN RESULT Many WBC Many RBC No Organisms Seen Abnormal [facility] Comment on above: Performed By: #### L [id number] ####[facility] [address] [place] [address] Venancio Richardson M.D. [id number] SURGICAL SITE AEROBIC AND ANAEROBIC CULTURE CULTURE No Anaerobic Growth after 5 days CORYNEBACTERIUM SPECIES Rare growth Corynebacterium species, not JK GRAM STAIN RESULT Moderate WBC No Organisms Seen Abnormal [facility] Comment on above: Performed By: #### L [id number] ####[facility] [address] [place] [address] Venancio Richardson M.D. [id number] SURGICAL SITE AEROBIC AND ANAEROBIC CULTURE CULTURE No Growth after 5 days GRAM STAIN RESULT Moderate WBC Many RBC No Organisms Seen Normal [facility] Comment on above: Performed By: #### L [id number] ####[facility] [address] [place], [place] [id number] Venancio Richardson M.D. [id number] SURGICAL SITE AEROBIC AND ANAEROBIC CULTURE CULTURE No Growth after 5 days GRAM STAIN RESULT Few WBC Many RBC No Organisms Seen Normal [facility] Comment on above: Performed By: #### L [id number] ####[facility] [address] [place], [place] [id number] Venancio Richardson M.D. [id number] VANCOMYCIN LEVEL, RANDOMon 0 05-13-2025 VANCOMYCIN RANDOM 23.7 mcg/mL Normal [facility] Comment on above: Order Comment: As of 05/2022 vancomycin dosing for [facility] inpatients will be done by Bayesian dosing software rather than off traditional trough values. Please contact the site specific inpatient pharmacy before making dose changes off of trough values alone for admitted patients.No established reference range. Performed By: #### 4 [id number] #### LAB [address] [place], [place] [address] Jack Mendoza M.D. [id number] Vancomycin Level, Randomon 0 05-13-2025 Vancomycin [Mass/Vol] 23.7 mcg/mL [facility] Vancomycin [Mass/Vol]on 04-23 As of 05/2022 vancom ycin dosing for [facility] inpatients will be done by Bayesian dosing software rather than off traditional trough values. Please contact the site specific inpatient pharmacy before making dose changes off of trough values alone for admitted patients. No established reference range. [facility] BASIC METABOLIC PANELon 04-23 Anion gap [Moles/Vol] 14 mmol/L Normal 10-20 [facility] Comment on above: Order Comment: [facility] has implemented the eGFR calculation approach that does not have a coefficient for race that conforms to the NKF-ASN Task Force Recommendations. Performed By: #### 4 6124 #### LAB [address] [place], [place] [address] Jack Mendoza M.D. [id number] Calcium [Mass/Vol] 8.5 mg/dL Normal 8.4-10.2 [facility] Comment on above: Order Comment: [facility] has implemented the eGFR calculation approach that does not have a coefficient for race that conforms to the NKF-ASN Task Force Recommendations. Performed By: #### 4 6124 #### LAB [address] [place], [place] [address] Jack Mendoza M.D. [id number] Chloride [Moles/Vol] 99 mmol/L Normal 98-108 [facility] Comment on above: Order Comment: [facility] has implemented the eGFR calculation approach that does not have a coefficient for race that conforms to the NKF-ASN Task Force Recommendations. Performed By: #### 4 6124 ####[facility] [address] [place], [place] [address] Jack Mendoza M.D. [id number] Creatinine [Mass/Vol] 0.60 mg/dL Normal 0.50-1.30 [facility] Comment on above: Order Comment: [facility] has implemented the eGFR calculation approach that does not have a coefficient for race that conforms to the NKF-ASN Task Force Recommendations. Performed By: #### 4 6124 #### LAB [address] [place] [address] Jack Mendoza M.D. [id number] EGFR 112 mL/min/1.73 m2 Normal >=60 [facility] Comment on above: Order Comment: [facility] has implemented the eGFR calculation approach that does not have a coefficient for race that conforms to the NKF-ASN Task Force Recommendations. Result Comment: Ashley mated GFR was calculated using the 2020 CKD-EPI creatinine equation. Performed By: #### 4 6124 #### LAB [address] [place] [address] Jack Mendoza M.D. [id number] Glucose [Mass/Vol] 178 mg/dL High 65-99 [facility] Comment on above: Order Comment: [facility] has implemented the eGFR calculation approach that does not have a coefficient for race that conforms to the NKF-ASN Task Force Recommendations. Performed By: #### 4 6124 #### LAB [address] [place] [address] Jack Mendoza M.D. [id number] HCO3 (Bld) [Moles/Vol] 26 mmol/L Normal 21-32 [facility] Comment on above: Order Comment: [facility] has implemented the eGFR calculation approach that does not have a coefficient for race that conforms to the NKF-ASN Task Force Recommendations. Performed By: #### 4 6124 #### LAB [address] [place] [address] Jack Mendoza M.D. [id number] Potassium [Moles/Vol] 3.6 mmol/L Normal 3.5-5.1 [facility] Comment on above: Order Comment: [facility] has implemented the eGFR calculation approach that does not have a coefficient for race that conforms to the NKF-ASN Task Force Recommendations. Performed By: #### 4 6124 #### LAB [address] [place], [place] [address] Jack Mendoza M.D. [id number] Sodium [Moles/Vol] 135 mmol/L Normal 135-145 [facility] Comment on above: Order Comment: [facility] has implemented the eGFR calculation approach that does not have a coefficient for race that conforms to the NKF-ASN Task Force Recommendations. Performed By: #### 4 6124 #### LAB [address] [place] [address] Jack Mendoza M.D. [id number] Urea nitrogen [Mass/Vol] 12 mg/dL Normal 8-25 [facility] Comment on above: Order Comment: [facility] has implemented the eGFR calculation approach that does not have a coefficient for race that conforms to the NKF-ASN Task Force Recommendations. Performed By: #### 4 6124 #### LAB [address] [place] [address] Jack Mendoza M.D. [id number] Urea nitrogen/Creatinine [Mass ratio] 20.0 mg/mg Normal 10.0-20.0 [facility] Comment on above: Order Comment: [facility] has implemented the eGFR calculation approach that does not have a coefficient for race that conforms to the NKF-ASN Task Force Recommendations. Performed By: #### 4 6124 #### LAB [address] [place] [address] Jack Mendoza M.D. [id number] Basic metabolic 2000 panelon 05-12-2025 Anion gap [Moles/Vol] 14 mmol/L 10 - 20 mmol/L [facility] Calcium [Mass/Vol] 8.5 mg/dL 8.4 - 10. 2 mg/dL [facility] Chloride [Moles/Vol] 99 mmol/L 98 - 10 8 mmol/L [facility] Creatinine [Mass/Vol] 0.6 mg/dL 0.50 - 1.30 mg/dL [facility] GFR/1.73 sq M.predicted CKD-EPI (S/P/Bld) [Vol rate/Area] 112 - PINF [facility] Comment on above: Estimated GFR was ca lculated using the 2020 CKD-EPI creatinine equation. Glucose [Mass/Vol] 178 mg/dL High 65 - 99 mg/dL [facility] HCO3 [Moles/Vol] 26 mmol/L 21 - 32 mmol/L [facility] Interpretation and review of laboratory results Abnormal [facility] Potassium [Moles/Vol] 3.6 mmol/L 3.5 - 5.1 mmol/L [facility] Sodium [Moles/Vol] 135 mmol/L 135 - 145 mmol/L [facility] Urea nitrogen [Mass/Vol] 12 mg/dL 8 - 25 mg/dL [facility] Urea nitrogen/Creatinine [Mass ratio] 20 mg/mg 10.0 - 20.0 [facility] has implemented the eGFR calculation approach that does not have a coefficient for race that conforms to the NKF-ASN Task Force Recommendations. [facility] CBC Auto Differentialon 04-23 Basophils (Bld) [#/Vol] 0.01 10*3/uL [facility] Basophils/100 WBC (Bld) 0.3 % [facility] Eosinophils (Bld) [#/Vol] 0.1 10*3/uL [facility] Eosinophils/100 WBC (Bld) 3.4 % [facility] Erythrocyte distribution width (RBC) [Entitic vol] 15.7 % High 11.6 - 14.8 % [facility] Hematocrit (Bld) [Volume fraction] 36 % Low 41.0 - 53.0 % [facility] Hemoglobin (Bld) [Mass/Vol] 10.9 g/dL Low 13.5 - 17.5 g/dL [facility] Immature granulocytes (Bld) [#/Vol] 0.01 10*3/uL [facility] Immature granulocytes/100 WBC (Bld) 0.3 % [facility] Comment on above: The IG parameter is the percentage of metamyelocytes, myelocytes and promyelocytes. An immature granulocyte count (IG) of 1% or more suggests the possibility of infection, an IG count of 3% is very likely related to an infection. Interpretation and review of laboratory results Abnormal [facility] Lymphocytes (Bld) [#/Vol] 0.63 10*3/uL Low [facility] Lymphocytes/100 WBC (Bld) 21.3 % [facility] MCH (RBC) [Entitic mass] 21 pg Low 26.0 - 34.0 pg [facility] MCHC (RBC) [Mass/Vol] 30.3 g/dL Low 31.0 - 37.0 g/dL [facility] MCV (RBC) [Entitic vol] 69.4 fL Low 80.0 - 100.0 fL [facility] Monocytes (Bld) [#/Vol] 0.26 10*3/uL Low [facility] Monocytes/100 WBC (Bld) 8.8 % [facility] Neutrophils (Bld) [#/Vol] 1.95 10*3/uL [facility] Neutrophils/100 WBC (Bld) 65.9 % [facility] Nucleated RBC (Bld) [#/Vol] 0 10*3/uL [facility] Nucleated RBC/100 WBC (Bld) [Ratio] 0 % [facility] Platelets (Bld) [#/Vol] 117 10*3/uL Low [facility] RBC (Bld) [#/Vol] 5.19 10*6/uL [facility] WBC (Bld) [#/Vol] 2.96 10*3/uL Low [facility] WITH AUTO DIFFERENTIALon 05-12-2025 AUTO NRBC 0.0 % [facility] Comment on above: Performed By: #### L [id number] #### LAB [address] [place] [address] Jack Mendoza M.D. [id number] AUTO NRBC ABS COUNT 0.00 K/mcL Normal 0.00-0.00 [facility] Comment on above: Performed By: #### L [id number] #### LAB [address] [place], [place] [address] Jack Mendoza M.D. [id number] BASOPHILS ABSOLUTE COUNT 0.01 K/mcL Normal 0.00-0.30 [facility] Comment on above: Performed By: #### L [id number] #### LAB [address] [place], [place] [address] Jack Mendoza M.D. [id number] Basophils/100 WBC (Bld) 0.3 % [facility] Comment on above: Performed By: #### L [id number] #### LAB [address] [place] [address] Jack Mendoza M.D. [id number] Eosinophils (Bld) [#/Vol] 0.10 10*3/uL Normal 0.00-0.50 [facility] Comment on above: Performed By: #### L [id number] #### LAB [address] [place] [address] Jack Mendoza M.D. [id number] Eosinophils/100 WBC (Bld) 3.4 % Normal [facility] Comment on above: Performed By: #### L [id number] #### LAB [address] [place] [address] Jack Mendoza M.D. [id number] Erythrocyte distribution width (RBC) [Ratio] 15.7 % High 11.6-14.8 [facility] Comment on above: Performed By: #### L [id number] #### LAB [address] [place] [address] Jack Mendoza M.D. [id number] Hematocrit (Bld) [Volume fraction] 36.0 % Low 41.0-53.0 [facility] Comment on above: Performed By: #### L [id number] #### LAB [address] [place] [address] Jack Mendoza M.D. [id number] Hemoglobin (Bld) [Mass/Vol] 10.9 g/dL Low 13.5-17.5 [facility] Comment on above: Performed By: #### L [id number] #### LAB [address] [place] [address] Jack Mendoza M.D. [id number] IG ABSOLUTE 0.01 K/mcL Normal 0.00-0.30 [facility] Comment on above: Performed By: #### L [id number] #### LAB [address] [place] [address] Jack Mendoza M.D. [id number] IG PERCENT 0.30 % Normal [facility] Comment on above: Result Comment: The IG parameter is the percentage of metamyelocytes, myelocytes and promyelocytes. An immature granulocyte count (IG) of 1% or more suggests the possibility of infection, an IG count of 3% is very likely related to an infection. Performed By: #### L [id number] #### LAB [address] [place] [address] Jack Mendoza M.D. [id number] Lymphocytes (Bld) [#/Vol] 0.63 10*3/uL Low 0.90-4.00 [facility] Comment on above: Performed By: #### L [id number] #### LAB [address] [place] [address] Jack Mendoza M.D. [id number] Lymphocytes/100 WBC (Bld) 21.3 % Normal [facility] Comment on above: Performed By: #### L [id number] #### LAB [address] [place] [address] Jack Mendoza M.D. [id number] MCH (RBC) [Entitic mass] 21.0 pg Low 26.0-34.0 [facility] Comment on above: Performed By: #### L [id number] #### LAB [address] [place] [address] Jack Mendoza M.D. [id number] MCV (RBC) [Entitic vol] 69.4 fL Low 80.0-100.0 [facility] Comment on above: Performed By: #### L [id number] #### LAB [address] [place] [address] Jack Mendoza M.D. [id number] MEAN CORPUSCULAR HEMOGLOBIN CONC 30.3 g/dL Low 31.0-37.0 [facility] Comment on above: Performed By: #### L [id number] ####[facility] [address] [place] [address] Jack Mendoza M.D. [id number] Monocytes (Bld) [#/Vol] 0.26 10*3/uL Low 0.30-0.90 [facility] Comment on above: Performed By: #### L [id number] #### LAB [address] [place] [address] Jack Mendoza M.D. [id number] Monocytes/100 WBC (Bld) 8.8 % Normal [facility] Comment on above: Performed By: #### L [id number] #### LAB [address] [place] [address] Jack Mendoza M.D. [id number] NEUTROPHILS ABSOLUTE COUNT 1.95 K/mcL Normal 1.70-7.00 [facility] Comment on above: Performed By: #### L [id number] ####[facility] [address] [place] [address] Jack Mendoza M.D. [id number] Neutrophils/100 WBC (Bld) 65.9 % Normal [facility] Comment on above: Performed By: #### L [id number] ####[facility] [address] [place] [address] Jack Mendoza M.D. [id number] Platelets (Bld) [#/Vol] 117 10*3/uL Low 150-400 [facility] Comment on above: Performed By: #### L [id number] ####[facility] [address] [place] [address] Jack Mendoza M.D. [id number] RBC (Bld) [#/Vol] 5.19 10*6/uL Normal 4.50-5.90 [facility] Comment on above: Performed By: #### L [id number] ####[facility] [address] [place] [address] Jack Mendoza M.D. [id number] WBC (Bld) [#/Vol] 2.96 10*3/uL Low 4.50-11.00 [facility] Comment on above: Performed By: #### L [id number] #### LAB [address] [place] [address] Jack Mendoza M.D. [id number] CONSULTon 05-12-2025 CONSULT Normal [facility] DRUGS OF ABUSE SCREEN, URINE on 05-12-2025 AMPHETAMINE SCREEN, URINE Not detected Normal None Detected [facility] Comment on above: Order Comment: Scree n results should be used for treatment purposes only.Specimen will be kept for 2 weeks, if the sample is adequate. Confirmation testing can be initiated by calling the lab within 2 weeks. Result Comment: Urin e Amphetamine Cutoff: < 1000 ng/mL = None Detected Performed By: #### 4 6965 ####[facility] [address] [place] [address] Jack Mendoza M.D. [id number] BARBITURATE SCREEN URINE Not detected Normal None Detected [facility] Comment on above: Order Comment: Scree n results should be used for treatment purposes only.Specimen will be kept for 2 weeks, if the sample is adequate. Confirmation testing can be initiated by calling the lab within 2 weeks. Result Comment: Urin e Barbiturates Cutoff: < 200 ng/mL = None Detected Performed By: #### 4 6965 ####[facility] [address] [place] [address] Jack Mendoza M.D. [id number] BENZODIAZEPINE SCREEN, URINE Not detected Normal None Detected [facility] Comment on above: Order Comment: Scree n results should be used for treatment purposes only.Specimen will be kept for 2 weeks, if the sample is adequate. Confirmation testing can be initiated by calling the lab within 2 weeks. Result Comment: Urin e Benzodiazepine Cutoff: < 200 ng/mL = None Detected Performed By: #### 4 6965 ####[facility] [address] [place] [address] Jack Mendoza M.D. [id number] BUPRENORPHINE, URINE Positive Abnormal None Detected [facility] Comment on above: Order Comment: Scree n results should be used for treatment purposes only.Specimen will be kept for 2 weeks, if the sample is adequate. Confirmation testing can be initiated by calling the lab within 2 weeks. Result Comment: Urin e Buprenorphine Cutoff: < 5 ng/mL = None Detected Performed By: #### 4 6965 ####[facility] [address] [place] [address] Jack Mendoza M.D. [id number] CANNABINOID SCREEN URINE Not detected Normal None Detected [facility] Comment on above: Order Comment: Scree n results should be used for treatment purposes only.Specimen will be kept for 2 weeks, if the sample is adequate. Confirmation testing can be initiated by calling the lab within 2 weeks. Result Comment: Urin e Cannabinoids Cutoff: < 50 ng/mL = None Detected Performed By: #### 4 6965 ####[facility] [address] [place] [address] Jack Mendoza M.D. [id number] COCAINE, SCREEN URINE Positive Abnormal None Detected [facility] Comment on above: Order Comment: Scree n results should be used for treatment purposes only.Specimen will be kept for 2 weeks, if the sample is adequate. Confirmation testing can be initiated by calling the lab within 2 weeks. Result Comment: Urin e Cocaine Cutoff: < 300 ng/mL = None Detected Performed By: #### 4 6965 ####[facility] [address] [place] [address] Jack Mendoza M.D. [id number] FENTANYL, URINE Not detected Normal None Detected [facility] Comment on above: Order Comment: Scree n results should be used for treatment purposes only.Specimen will be kept for 2 weeks, if the sample is adequate. Confirmation testing can be initiated by calling the lab within 2 weeks. Result Comment: Urin e Fentanyl Cutoff: < 1 ng/mL = None Detected Performed By: #### 4 6965 ####[facility] [address] [place] [address] Jack Mendoza M.D. [id number] METHADONE SCREEN, URINE Not detected Normal None Detected [facility] Comment on above: Order Comment: Scree n results should be used for treatment purposes only.Specimen will be kept for 2 weeks, if the sample is adequate. Confirmation testing can be initiated by calling the lab within 2 weeks. Result Comment: Urin e Methadone Cutoff: < 300 ng/mL = None Detected Performed By: #### 4 6965 ####[facility] [address] [place] [address] Jakc Mendoza M.D. [id number] OPIATE SCREEN URINE Not detected Normal None Detected [facility] Comment on above: Order Comment: Scree n results should be used for treatment purposes only.Specimen will be kept for 2 weeks, if the sample is adequate. Confirmation testing can be initiated by calling the lab within 2 weeks. Result Comment: Urin e Opiates Cutoff: < 300 ng/mL = None Detected Performed By: #### 4 6965 ####[facility] [address] [place], [place] [address] Jack Mendoza M.D. [id number] OXYCODONE SCREEN, URINE Positive Abnormal None Detected [facility] Comment on above: Order Comment: Scree n results should be used for treatment purposes only.Specimen will be kept for 2 weeks, if the sample is adequate. Confirmation testing can be initiated by calling the lab within 2 weeks. Result Comment: Urin e Oxycodone Cutoff: < 100 ng/mL = None Detected Performed By: #### 4 6965 ####[facility] [address] [place], [place] [address] Jack Mendoza M.D. [id number] Drugs of Abuse Screen, Urine Ordered By: Neeru Calvert on 05-12-2025 Amphetamines Ql (U) Not detected None Detected [facility] Comment on above: Urine Amphetamine Cu toff: < 1000 ng/mL = None Detected Barbiturates Screen Ql (U) Not detected None Detected [facility] Comment on above: Urine Barbiturates C utoff: < 200 ng/mL = None Detected Benzodiazepines Ql (U) Not detected None Detected [facility] Comment on above: Urine Benzodiazepine Cutoff: < 200 ng/mL = None Detected Buprenorphine Ql (U) Positive Abnormal None Detected [facility] Comment on above: Urine Buprenorphine Cutoff: < 5 ng/mL = None Detected Cannabinoids Screen Ql (U) Not detected None Detected [facility] Comment on above: Urine Cannabinoids C utoff: < 50 ng/mL = None Detected Cocaine Ql (U) Positive Abnormal None Detected [facility] Comment on above: Urine Cocaine Cutoff : < 300 ng/mL = None Detected fentaNYL+Norfentanyl Screen Ql (U) Not detected None Detected [facility] Comment on above: Urine Fentanyl Cutof f: < 1 ng/mL = None Detected Interpretation and review of laboratory results Abnormal [facility] Methadone Screen Ql (U) Not detected None Detected [facility] Comment on above: Urine Methadone Cuto ff: < 300 ng/mL = None Detected Opiates Screen Ql (U) Not detected None Detected [facility] Comment on above: Urine Opiates Cutoff : < 300 ng/mL = None Detected oxyCODONE Ql (U) Positive Abnormal None Detected [facility] Comment on above: Urine Oxycodone Cuto ff: < 100 ng/mL = None Detected Screen results shoul d be used for treatment purposes only. Specimen will be kept for 2 weeks, if the sample is adequate. Confirmation testing can be initiated by calling the lab within 2 weeks. [facility] ED Prov Noteon 05-12-2025 ED Prov Note Normal [facility] Glucose (Bld) [Mass/Vol]on 0 05-12-2025 Glucose [Mass/Vol] 179 mg/dL High 65 - 99 mg/dL [facility] Interpretation and review of laboratory results Abnormal [facility] Glucose [Mass/Vol] 120 mg/dL High 65 - 99 mg/dL [facility] Interpretation and review of laboratory results Abnormal [facility] Glucose [Mass/Vol] 111 mg/dL High 65 - 99 mg/dL [facility] Interpretation and review of laboratory results Abnormal [facility] Glucose [Mass/Vol] 99 mg/dL 65 - 99 mg/dL [facility] Interpretation and review of laboratory results Normal [facility] H AND Mike 05-12-2025 H AND P Normal [facility] MAGNESIUM LEVELon 05-12-2025 Magnesium [Mass/Vol] 1.8 mg/dL Normal 1.6-2.4 [facility] Comment on above: Performed By: #### 4 [id number] #### LAB [address] [place] [address] Jack Mendoza M.D. [id number] MRSA DNA AMPLIFIED PROBEon 0 05-12-2025 MRSA DNA AMPLIFIED PROBE Not detected Normal Not Detected, MRSA NEGATIVE [facility] Comment on above: Performed By: #### [id number] ####[facility] [facility] [address] [place], [place] [address] Venancio Richardson M.D. [id number] Magnesium Levelon 05-12-2025 Magnesium [Mass/Vol] 1.8 mg/dL 1.6 - 2 .4 mg/dL [facility] NT PRO BNPon 05-12-2025 Natriuretic peptide B (Bld) [Mass/Vol] 91 pg/mL Normal 0-300 [facility] Comment on above: Order Comment: Pride Study Cut-offsRule In:< /= 50 Years >450 pg/mL51 Years - 75 Years >900 pg/mL76 Years - 99 Years >1800 pg/mLRule Out:All patients <300 pg/mL Performed By: #### 4 7395 #### [facility] [address] [facility] [place] [address] Jack Mendoza M.D. [id number] NT Pro BNPon 05-12-2025 Natriuretic peptide.B prohormone N-Terminal [Mass/Vol] 91 pg/mL 0 - 300 pg/mL [facility] Natriuretic peptide.B prohor randi N-Terminal [Mass/Vol]on 05-12-2025 Pride Study Cut-offs Rule In: < /= 50 Years >450 pg/mL 51 Years - 75 Years >900 pg/mL 76 Years - 99 Years >1800 pg/mL Rule Out: All patients <300 pg/mL [facility] No Panel Informationon 05-12 Interpretation and review of laboratory results Normal [facility] POC GLUCOSE - [facility] 025 Glucose [Mass/Vol] 179 mg/dL High 65-99 [facility] Glucose [Mass/Vol] 120 mg/dL High 65-99 [facility] Glucose [Mass/Vol] 111 mg/dL High 65-99 [facility] Glucose [Mass/Vol] 99 mg/dL Normal 65-99 [facility] WOUND AEROBIC AND ANAEROBIC CULTUREon 05-12-2025 WOUND AEROBIC AND ANAEROBIC CULTURE CULTURE No Anaerobic Growth after 5 days CORYNEBACTERIUM SPECIES Few Growth (4-10 colonies per plate) Corynebacterium species, not JK GRAM STAIN RESULT Many WBC Many RBC Few Gram Negative Bacilli Few Gram Positive Bacilli Abnormal [facility] Comment on above: Performed By: #### 4 [id number] ####[facility] [address] [place], [place] [id number] Venancio Richardson M.D. [id number] BLOOD CULTURE AEROBIC/ANAERO BICon 05-11-2025 BLOOD CULTURE AEROBIC/ANAEROBIC BLOOD CULTURE No Growth after 5 days Normal [facility] Comment on above: Performed By: #### 4 [id number] ####[facility] [address] [place] [address] Venancio Richardson M.D. [id number] CBC Auto Differentialon 04-23 Erythrocyte distribution width (RBC) [Entitic vol] 17.2 % High 11.6 - 14.8 % [facility] Hematocrit (Bld) [Volume fraction] 38.9 % Low 41.0 - 53.0 % [facility] Hemoglobin (Bld) [Mass/Vol] 11.5 g/dL Low 13.5 - 17.5 g/dL [facility] MCH (RBC) [Entitic mass] 21.1 pg Low 26.0 - 34.0 pg [facility] MCHC (RBC) [Mass/Vol] 29.6 g/dL Low 31.0 - 37.0 g/dL [facility] MCV (RBC) [Entitic vol] 71.2 fL Low 80.0 - 100.0 fL [facility] Nucleated RBC (Bld) [#/Vol] 0 10*3/uL [facility] Nucleated RBC/100 WBC (Bld) [Ratio] 0 % [facility] Platelets (Bld) [#/Vol] 124 10*3/uL Low [facility] RBC (Bld) [#/Vol] 5.46 10*6/uL [facility] WBC (Bld) [#/Vol] 4.46 10*3/uL Low [facility] CBC WITH AUTO DIFFERENTIALon 05-11-2025 AUTO NRBC 0.0 % Normal [facility] Comment on above: Performed By: #### L [id number] #### LAB [address] [place], [place] [address] Jack Mendoza M.D. [id number] AUTO NRBC ABS COUNT 0.00 K/mcL Normal 0.00-0.00 [facility] Comment on above: Performed By: #### L [id number] ####[facility] [address] [place], [place] [address] Jack Mendoza M.D. [id number] Erythrocyte distribution width (RBC) [Ratio] 17.2 % High 11.6-14.8 [facility] Comment on above: Performed By: #### L [id number] #### LAB [address] [place], [place] [address] Jack Mendoza M.D. [id number] Hematocrit (Bld) [Volume fraction] 38.9 % Low 41.0-53.0 [facility] Comment on above: Performed By: #### L [id number] #### LAB [address] [place] [address] Jack Mendoza M.D. [id number] Hemoglobin (Bld) [Mass/Vol] 11.5 g/dL Low 13.5-17.5 [facility] Comment on above: Performed By: #### L [id number] #### LAB [address] [place] [address] Jack Mendoza M.D. [id number] MCH (RBC) [Entitic mass] 21.1 pg Low 26.0-34.0 [facility] Comment on above: Performed By: #### L [id number] #### LAB [address] [place] [address] Jack Mendoza M.D. [id number] MCV (RBC) [Entitic vol] 71.2 fL Low 80.0-100.0 [facility] Comment on above: Performed By: #### L [id number] #### LAB [address] [place] [address] Jack Mendoza M.D. [id number] MEAN CORPUSCULAR HEMOGLOBIN CONC 29.6 g/dL Low 31.0-37.0 [facility] Comment on above: Performed By: #### L [id number] #### LAB [address] [address] Jack Mendoza M.D. [id number] Platelets (Bld) [#/Vol] 124 10*3/uL Low 150-400 [facility] Comment on above: Performed By: #### L [id number] ####[facility] [address] [address] Jack Mendoza M.D. [id number] RBC (Bld) [#/Vol] 5.46 10*6/uL Normal 4.50-5.90 [facility] Comment on above: Performed By: #### L [id number] ####[facility] [address] [place] [address] Jack Mendoza M.D. [id number] WBC (Bld) [#/Vol] 4.46 10*3/uL Low 4.50-11.00 [facility] Comment on above: Performed By: #### L [id number] #### LAB [address] [place] [id number] Jack Mendoza M.D. [id number] CBC and Diff Morphologyon Acanthocytes LM Ql (Bld) Few [facility] Ovalocytes LM Ql (Bld) Moderate [facility] Platelets LM Ql (Bld) Decreased Abnormal Normal [facility] Polychromasia LM Ql (Bld) Few [facility] RBC morphology finding Nom (Bld) See Comment [facility] Comment on above: RBC Indices confirme d with manual peripheral smear review. Target cells LM Ql (Bld) Few [facility] COMPREHENSIVE METABOLIC PANE Ras 05-11-2025 Albumin [Mass/Vol] 3.4 g/dL Normal 3.2-5.2 [facility] Comment on above: Order Comment: [facility] has implemented the eGFR calculation approach that does not have a coefficient for race that conforms to the NKF-ASN Task Force Recommendations. Performed By: #### 4 6126 #### LAB [address] [place] [address] Jack Mendoza M.D. [id number] ALP [Catalytic activity/Vol] 83 U/L Normal 40-150 [facility] Comment on above: Order Comment: [facility] has implemented the eGFR calculation approach that does not have a coefficient for race that conforms to the NKF-ASN Task Force Recommendations. Performed By: #### 4 6126 #### LAB [address] [place] [address] Jack Mendoza M.D. [id number] ALT [Catalytic activity/Vol] 16 U/L Normal 0-50 U/L [facility] Comment on above: Order Comment: [facility] has implemented the eGFR calculation approach that does not have a coefficient for race that conforms to the NKF-ASN Task Force Recommendations. Performed By: #### 4 6126 #### LAB [address] [place] [address] Jack Mendoza M.D. [id number] Anion gap [Moles/Vol] 14 mmol/L Normal 10-20 [facility] Comment on above: Order Comment: [facility] has implemented the eGFR calculation approach that does not have a coefficient for race that conforms to the NKF-ASN Task Force Recommendations. Performed By: #### 4 6126 #### LAB [address] [place] [address] Jack Mendoza M.D. [id number] AST [Catalytic activity/Vol] 31 U/L Normal 0-50 U/L [facility] Comment on above: Order Comment: [facility] has implemented the eGFR calculation approach that does not have a coefficient for race that conforms to the NKF-ASN Task Force Recommendations. Performed By: #### 4 6126 #### LAB [address] [place] [address] Jack Mendoza M.D. [id number] Bilirubin [Mass/Vol] 0.8 mg/dL Normal 0.0-1.3 [facility] Comment on above: Order Comment: [facility] has implemented the eGFR calculation approach that does not have a coefficient for race that conforms to the NKF-ASN Task Force Recommendations. Performed By: #### 4 6126 #### LAB [address] [place] [address] Jack Mendoza M.D. [id number] Calcium [Mass/Vol] 8.8 mg/dL Normal 8.4-10.2 [facility] Comment on above: Order Comment: [facility] has implemented the eGFR calculation approach that does not have a coefficient for race that conforms to the NKF-ASN Task Force Recommendations. Performed By: #### 4 6126 #### LAB [address] [place] [address] Jack Mendoza M.D. [id number] Chloride [Moles/Vol] 98 mmol/L Normal 98-108 [facility] Comment on above: Order Comment: [facility] has implemented the eGFR calculation approach that does not have a coefficient for race that conforms to the NKF-ASN Task Force Recommendations. Performed By: #### 4 6126 #### LAB [address] [place] [address] Jack Mendoza M.D. [id number] Creatinine [Mass/Vol] 0.66 mg/dL Normal 0.50-1.30 [facility] Comment on above: Order Comment: [facility] has implemented the eGFR calculation approach that does not have a coefficient for race that conforms to the NKF-ASN Task Force Recommendations. Performed By: #### 4 6126 #### LAB [address] [place] [address] Jack Mendoza M.D. [id number] EGFR 109 mL/min/1.73 m2 Normal >=60 [facility] Comment on above: Order Comment: [facility] has implemented the eGFR calculation approach that does not have a coefficient for race that conforms to the NKF-ASN Task Force Recommendations. Result Comment: Ashley mated GFR was calculated using the 2020 CKD-EPI creatinine equation. Performed By: #### 4 6126 #### LAB [address] [place] [address] Jack Mendoza M.D. [id number] Glucose [Mass/Vol] 96 mg/dL Normal 65-99 [facility] Comment on above: Order Comment: [facility] has implemented the eGFR calculation approach that does not have a coefficient for race that conforms to the NKF-ASN Task Force Recommendations. Performed By: #### 4 6126 #### LAB [address] [place] [address] Jack Mendoza M.D. [id number] HCO3 (Bld) [Moles/Vol] 26 mmol/L Normal 21-32 [facility] Comment on above: Order Comment: [facility] has implemented the eGFR calculation approach that does not have a coefficient for race that conforms to the NKF-ASN Task Force Recommendations. Performed By: #### 4 6126 #### LAB [address] [place] [address] Jack Mendoza M.D. [id number] Potassium [Moles/Vol] 3.9 mmol/L Normal 3.5-5.1 [facility] Comment on above: Order Comment: [facility] has implemented the eGFR calculation approach that does not have a coefficient for race that conforms to the NKF-ASN Task Force Recommendations. Performed By: #### 4 6126 #### LAB [address] [place], [place] [address] Jack Mendoza M.D. [id number] Protein [Mass/Vol] 7.8 g/dL Normal 6.0-8.0 [facility] Comment on above: Order Comment: [facility] has implemented the eGFR calculation approach that does not have a coefficient for race that conforms to the NKF-ASN Task Force Recommendations. Performed By: #### 4 6126 #### LAB [address] [place] [address] Jack Mendoza M.D. [id number] Sodium [Moles/Vol] 134 mmol/L Low 135-145 [facility] Comment on above: Order Comment: [facility] has implemented the eGFR calculation approach that does not have a coefficient for race that conforms to the NKF-ASN Task Force Recommendations. Performed By: #### 4 6126 #### LAB [address] [place] [address] Jack Mendoza M.D. [id number] Urea nitrogen [Mass/Vol] 16 mg/dL Normal 8-25 [facility] Comment on above: Order Comment: [facility] has implemented the eGFR calculation approach that does not have a coefficient for race that conforms to the NKF-ASN Task Force Recommendations. Performed By: #### 4 6126 #### LAB [address] [place], [place] [address] Jack Mendoza M.D. [id number] Urea nitrogen/Creatinine [Mass ratio] 24.2 mg/mg High 10.0-20.0 [facility] Comment on above: Order Comment: [facility] has implemented the eGFR calculation approach that does not have a coefficient for race that conforms to the NKF-ASN Task Force Recommendations. Performed By: #### 4 6126 ####[facility] [address] [place], [place] [address] Jack Mendoza M.D. [id number] Comprehensive metabolic 2000 panelon 05-11-2025 Albumin [Mass/Vol] 3.4 g/dL 3.2 - 5.2 g/dL [facility] ALP [Catalytic activity/Vol] 83 U/L 40 - 150 U/L [facility] ALT [Catalytic activity/Vol] 16 U/L 0 - 50 U/L [facility] Anion gap [Moles/Vol] 14 mmol/L 10 - 20 mmol/L [facility] AST [Catalytic activity/Vol] 31 U/L 0 - 50 U/L [facility] Bilirubin [Mass/Vol] 0.8 mg/dL 0.0 - 1 .3 mg/dL [facility] Calcium [Mass/Vol] 8.8 mg/dL 8.4 - 10. 2 mg/dL [facility] Chloride [Moles/Vol] 98 mmol/L 98 - 10 8 mmol/L [facility] Creatinine [Mass/Vol] 0.66 mg/dL 0.50 - 1.30 mg/dL [facility] GFR/1.73 sq M.predicted CKD-EPI (S/P/Bld) [Vol rate/Area] 109 - PINF [facility] Comment on above: Estimated GFR was ca lculated using the 2020 CKD-EPI creatinine equation. Glucose [Mass/Vol] 96 mg/dL 65 - 99 mg/dL [facility] HCO3 [Moles/Vol] 26 mmol/L 21 - 32 mmol/L [facility] Interpretation and review of laboratory results Abnormal [facility] Potassium [Moles/Vol] 3.9 mmol/L 3.5 - 5.1 mmol/L [facility] Protein [Mass/Vol] 7.8 g/dL 6.0 - 8.0 g/dL [facility] Sodium [Moles/Vol] 134 mmol/L Low 135 - 145 mmol/L [facility] Urea nitrogen [Mass/Vol] 16 mg/dL 8 - 25 mg/dL [facility] Urea nitrogen/Creatinine [Mass ratio] 24.2 mg/mg High 10.0 - 20.0 [facility] has implemented the eGFR calculation approach that does not have a coefficient for race that conforms to the NKF-ASN Task Force Recommendations. [facility] LACTIC ACID, PLASMAon 2024 LACTIC ACID, PLASMA 1.9 mmol/L Normal 0.6-2.0 [facility] Comment on above: Performed By: #### 4 6053 #### LAB [address] [place] [address] Jack Mendoza M.D. [id number] Lactate [Moles/Vol]on 2024 Interpretation and review of laboratory results Normal [facility] Lactic Acidon 05-11-2025 Lactate [Moles/Vol] 1.9 mmol/L 0.6 - 2. 0 mmol/L [facility] MANUAL DIFFERENTIALon 2024 BASOPHILS - ABS (DIFF) 0.00 K/mcL Normal 0.00-0.30 [facility] Comment on above: Performed By: #### 4 5456 #### LAB [address] [place] [address] Jack Mendoza M.D. [id number] BASOPHILS - REL (DIFF) 0.0 % [facility] Comment on above: Performed By: #### 4 5456 #### LAB [address] [address] Jack Mendoza M.D. [id number] EOSINOPHILS - ABS (DIFF) 0.13 K/mcL Normal 0.00-0.50 [facility] Comment on above: Performed By: #### 4 5456 #### LAB [address] [address] Jack Mendoza M.D. [id number] EOSINOPHILS - REL (DIFF) 3.0 % Normal [facility] Comment on above: Performed By: #### 4 5477 #### LAB [address] [place] [address] Jack Mendoza M.D. [id number] LYMPHOCYTE ATYPICAL - REL (DIFF) 1.0 % [facility] Comment on above: Performed By: #### 4 5444 #### LAB [address] [place] [address] Jack Mendoza M.D. [id number] LYMPHOCYTES - ABS (DIFF) 0.49 K/mcL Low 0.90-4.00 [facility] Comment on above: Performed By: #### 4 5456 #### LAB [address] [address] Jack Mendoza M.D. [id number] LYMPHOCYTES - REL (DIFF) 10.0 % Normal [facility] Comment on above: Performed By: #### 4 5456 #### LAB [address] [place] [address] Jack Mendoza M.D. [id number] MONOCYTES - ABS (DIFF) 0.13 K/mcL Low 0.30-0.90 [facility] Comment on above: Performed By: #### 4 5456 #### LAB [address] [address] Jack Mendoza M.D. [id number] MONOCYTES - REL (DIFF) 3.0 % Normal [facility] Comment on above: Performed By: #### 4 5456 #### LAB [address] [place] [address] Jack Mendoza M.D. [id number] NEUTROPHILS - ABS (DIFF) 3.70 K/mcL Normal 1.70-7.00 [facility] Comment on above: Performed By: #### 4 5456 #### LAB [address] [place] [address] Jack Mendoza M.D. [id number] NEUTROPHILS - REL (DIFF) 83.0 % Normal [facility] Comment on above: Performed By: #### 4 5456 #### LAB [address] [place] [address] Jack Mendoza M.D. [id number] MORPHOLOGYon 05-11-2025 ACANTHOCYTES Few Normal [facility] Comment on above: Performed By: #### L [id number] ####[facility] [address] [place] [address] Jack Mendoza M.D. [id number] OVAL SCAN Moderate Normal [facility] Comment on above: Performed By: #### L [id number] #### LAB [address] [place] [address] Jack Mendoza M.D. [id number] PLATELET ESTIMATE Decreased Abnormal Normal [facility] Comment on above: Performed By: #### L [id number] ####[facility] [address] [place], [place] [address] Jack Mendoza M.D. [id number] POLY SCAN Few Normal [facility] Comment on above: Performed By: #### L [id number] ####[facility] [address] [place] [address] Jack Mendoza M.D. [id number] RBC MORPH SCAN See Comment Normal [facility] Comment on above: Result Comment: RBC Indices confirmed with manual peripheral smear review. Performed By: #### L [id number] ####[facility] [address] [place] [address] Jack Mendoza M.D. [id number] T[employer] CELL SCAN Few Normal [facility] Comment on above: Performed By: #### L [id number] ####[facility] [address] [place] [address] Jack Mendoza M.D. [id number] Manual Differential panel (B ld)on 05-11-2025 Basophils (Bld) [#/Vol] 0 10*3/uL [facility] Basophils/100 WBC (Bld) 0 % [facility] Eosinophils (Bld) [#/Vol] 0.13 10*3/uL [facility] Eosinophils/100 WBC (Bld) 3 % [facility] Lymphocytes (Bld) [#/Vol] 0.49 10*3/uL Low [facility] Lymphocytes/100 WBC (Bld) 10 % [facility] Monocytes (Bld) [#/Vol] 0.13 10*3/uL Low [facility] Monocytes/100 WBC (Bld) 3 % [facility] Neutrophils (Bld) [#/Vol] 3.7 10*3/uL [facility] Neutrophils/100 WBC (Bld) 83 % [facility] Variant lymphocytes/100 WBC (Bld) 1 % [facility] No Panel Informationon 05-11 Interpretation and review of laboratory results Abnormal [facility] XR KNEE RIGHT 2 VIEWS (STAND NO)on 05-11-2025 XR KNEE RIGHT 2 VIEWS (STANDARD) Normal [facility] Comment on above: Order Comment: Injur y/Trauma or Illness?:Illness/OtherHow long have you had these symptoms (acute/chronic)?:AcuteReason for exam?:right knee pain and swellingHistory of cancer?:uSurgeries, chemotherapy, or radiation?:uType of Exam?:InitialAdditional signs and symptoms?:. XR Knee - right 2 Viewson No acute osseous abnormality. Workstation ID: [id number] [facility] EXAMINATION: XR KNEE RIGHT 2 VIEWS [...] joints are maintained. Small suprapatellar joint effusion. [facility] Briana Ramirez MD - 05/11/2025 EXAMINATION: [...] No acute osseous abnormality. Workstation ID: [id number] [facility] Radiology Study observation (narrative) [facility] XR Knee - right 2 ViewsOrder ed By: Briana Ramirez on 05-11-2025 [facility] Work Phone: BODY FLUID AEROBIC AND ANAER OBIC CULTUREon 05-09-2025 BODY FLUID AEROBIC AND ANAEROBIC CULTURE CULTURE No Growth after 5 days GRAM STAIN RESULT Moderate WBC Many RBC No Organisms Seen Normal [facility] Comment on above: Order Comment: Yue ered to run at [employer] instead of [employer] due to source Performed By: #### 4 3277 #### [facility] [address] [place], [place] [address] Venancio Richardson M.D. [id number] BODY FLUID AEROBIC AND ANAEROBIC CULTURE CULTURE No Growth after 5 days GRAM STAIN RESULT Few WBC Many RBC No Organisms Seen Normal [facility] Comment on above: Performed By: #### 4 4197 #### [facility] [place], [place] [address] Venancio Richardson M.D. [id number] BASIC METABOLIC PANELon 08- Anion gap [Moles/Vol] 11 mmol/L Normal 10-20 [facility] Comment on above: Order Comment: [facility] has implemented the eGFR calculation approach that does not have a coefficient for race that conforms to the NKF-ASN Task Force Recommendations. Performed By: #### 4 6124 #### LAB [address] [place] [address] Jack Mendoza M.D. [id number] Calcium [Mass/Vol] 8.2 mg/dL Low 8.4-10.2 [facility] Comment on above: Order Comment: [facility] has implemented the eGFR calculation approach that does not have a coefficient for race that conforms to the NKF-ASN Task Force Recommendations. Performed By: #### 4 6124 #### LAB [address] [place], [place] [address] Jack Mendoza M.D. [id number] Chloride [Moles/Vol] 100 mmol/L Normal 98-108 [facility] Comment on above: Order Comment: [facility] has implemented the eGFR calculation approach that does not have a coefficient for race that conforms to the NKF-ASN Task Force Recommendations. Performed By: #### 4 6124 #### LAB [address] [place] [address] Jack Mendoza M.D. [id number] Creatinine [Mass/Vol] 0.51 mg/dL Normal 0.50-1.30 [facility] Comment on above: Order Comment: [facility] has implemented the eGFR calculation approach that does not have a coefficient for race that conforms to the NKF-ASN Task Force Recommendations. Performed By: #### 4 6124 #### LAB [address] [place] [address] Jack Mendoza M.D. [id number] EGFR 118 mL/min/1.73 m2 Normal >=60 [facility] Comment on above: Order Comment: [facility] has implemented the eGFR calculation approach that does not have a coefficient for race that conforms to the NKF-ASN Task Force Recommendations. Result Comment: Ashley mated GFR was calculated using the 2020 CKD-EPI creatinine equation. Performed By: #### 4 6124 #### LAB [address] [place] [address] Jack Mendoza M.D. [id number] Glucose [Mass/Vol] 115 mg/dL High 65-99 [facility] Comment on above: Order Comment: [facility] has implemented the eGFR calculation approach that does not have a coefficient for race that conforms to the NKF-ASN Task Force Recommendations. Performed By: #### 4 6124 #### LAB [address] [place] [address] Jack Mendoza M.D. [id number] HCO3 (Bld) [Moles/Vol] 29 mmol/L Normal 21-32 [facility] Comment on above: Order Comment: [facility] has implemented the eGFR calculation approach that does not have a coefficient for race that conforms to the NKF-ASN Task Force Recommendations. Performed By: #### 4 6124 #### LAB [address] [place] [address] Jack Mendoza M.D. [id number] Potassium [Moles/Vol] 4.1 mmol/L Normal 3.5-5.1 [facility] Comment on above: Order Comment: [facility] has implemented the eGFR calculation approach that does not have a coefficient for race that conforms to the NKF-ASN Task Force Recommendations. Performed By: #### 4 6124 #### LAB [address] [place] [address] Jack Mendoza M.D. [id number] Sodium [Moles/Vol] 136 mmol/L Normal 135-145 [facility] Comment on above: Order Comment: [facility] has implemented the eGFR calculation approach that does not have a coefficient for race that conforms to the NKF-ASN Task Force Recommendations. Performed By: #### 4 6124 #### LAB [address] [place], [place] [address] Jack Mendoza M.D. [id number] Urea nitrogen [Mass/Vol] 12 mg/dL Normal 8-25 [facility] Comment on above: Order Comment: [facility] has implemented the eGFR calculation approach that does not have a coefficient for race that conforms to the NKF-ASN Task Force Recommendations. Performed By: #### 4 [id number] #### LAB [address] [place], [place] [address] Jack Mendoza M.D. [id number] Urea nitrogen/Creatinine [Mass ratio] 23.5 mg/mg High 10.0-20.0 [facility] Comment on above: Order Comment: [facility] has implemented the eGFR calculation approach that does not have a coefficient for race that conforms to the NKF-ASN Task Force Recommendations. Performed By: #### 4 [id number] #### LAB [address] [place], [place] [address] Jack Mendoza M.D. [id number] Basic metabolic 2000 panelon 04-05-2025 Anion gap [Moles/Vol] 11 mmol/L 10 - 20 mmol/L [facility] Calcium [Mass/Vol] 8.2 mg/dL Low 8.4 - 10. 2 mg/dL [facility] Chloride [Moles/Vol] 100 mmol/L 98 - 10 8 mmol/L [facility] Creatinine [Mass/Vol] 0.51 mg/dL 0.50 - 1.30 mg/dL [facility] GFR/1.73 sq M.predicted CKD-EPI (S/P/Bld) [Vol rate/Area] 118 - PINF [facility] Comment on above: Estimated GFR was ca lculated using the 2020 CKD-EPI creatinine equation. Glucose [Mass/Vol] 115 mg/dL High 65 - 99 mg/dL [facility] HCO3 [Moles/Vol] 29 mmol/L 21 - 32 mmol/L [facility] Interpretation and review of laboratory results Abnormal [facility] Potassium [Moles/Vol] 4.1 mmol/L 3.5 - 5.1 mmol/L [facility] Sodium [Moles/Vol] 136 mmol/L 135 - 145 mmol/L [facility] Urea nitrogen [Mass/Vol] 12 mg/dL 8 - 25 mg/dL [facility] Urea nitrogen/Creatinine [Mass ratio] 23.5 mg/mg High 10.0 - 20.0 [facility] has implemented the eGFR calculation approach that does not have a coefficient for race that conforms to the NKF-ASN Task Force Recommendations. [facility] Anion gap [Moles/Vol] 15 mmol/L 10 - 20 mmol/L [facility] Calcium [Mass/Vol] 8.7 mg/dL 8.4 - 10. 2 mg/dL [facility] Chloride [Moles/Vol] 96 mmol/L Low 98 - 10 8 mmol/L [facility] Creatinine [Mass/Vol] 0.65 mg/dL 0.50 - 1.30 mg/dL [facility] GFR/1.73 sq M.predicted CKD-EPI (S/P/Bld) [Vol rate/Area] 109 - PINF [facility] Comment on above: Estimated GFR was ca lculated using the 2020 CKD-EPI creatinine equation. Glucose [Mass/Vol] 124 mg/dL High 65 - 99 mg/dL [facility] HCO3 [Moles/Vol] 27 mmol/L 21 - 32 mmol/L [facility] Interpretation and review of laboratory results Abnormal [facility] Potassium [Moles/Vol] 4.4 mmol/L 3.5 - 5.1 mmol/L [facility] Sodium [Moles/Vol] 134 mmol/L Low 135 - 145 mmol/L [facility] Urea nitrogen [Mass/Vol] 12 mg/dL 8 - 25 mg/dL [facility] Urea nitrogen/Creatinine [Mass ratio] 18.5 mg/mg 10.0 - 20.0 [facility] has implemented the eGFR calculation approach that does not have a coefficient for race that conforms to the NKF-ASN Task Force Recommendations. [facility] CBC Auto Differentialon 03-22 Basophils (Bld) [#/Vol] 0.01 10*3/uL [facility] Basophils/100 WBC (Bld) 0.3 % [facility] Eosinophils (Bld) [#/Vol] 0.05 10*3/uL [facility] Eosinophils/100 WBC (Bld) 1.6 % [facility] Erythrocyte distribution width (RBC) [Entitic vol] 17.1 % High 11.6 - 14.8 % [facility] Hematocrit (Bld) [Volume fraction] 32.7 % Low 41.0 - 53.0 % [facility] Hemoglobin (Bld) [Mass/Vol] 9.8 g/dL Low 13.5 - 17.5 g/dL [facility] Immature granulocytes (Bld) [#/Vol] 0.01 10*3/uL [facility] Immature granulocytes/100 WBC (Bld) 0.3 % [facility] Comment on above: The IG parameter is the percentage of metamyelocytes, myelocytes and promyelocytes. An immature granulocyte count (IG) of 1% or more suggests the possibility of infection, an IG count of 3% is very likely related to an infection. Lymphocytes (Bld) [#/Vol] 0.5 10*3/uL Low [facility] Lymphocytes/100 WBC (Bld) 15.6 % [facility] MCH (RBC) [Entitic mass] 21.7 pg Low 26.0 - 34.0 pg [facility] MCHC (RBC) [Mass/Vol] 30 g/dL Low 31.0 - 37.0 g/dL [facility] MCV (RBC) [Entitic vol] 72.3 fL Low 80.0 - 100.0 fL [facility] Monocytes (Bld) [#/Vol] 0.25 10*3/uL Low [facility] Monocytes/100 WBC (Bld) 7.8 % [facility] Neutrophils (Bld) [#/Vol] 2.39 10*3/uL [facility] Neutrophils/100 WBC (Bld) 74.4 % [facility] Comment on above: Peripheral smear rev iewed manually Nucleated RBC (Bld) [#/Vol] 0 10*3/uL [facility] Nucleated RBC/100 WBC (Bld) [Ratio] 0 % [facility] Platelet mean volume (Bld) [Entitic vol] 9.3 fL Low 9.4 - 12.4 fL [facility] Platelets (Bld) [#/Vol] 95 10*3/uL Low [facility] RBC (Bld) [#/Vol] 4.52 10*6/uL [facility] ealth WBC (Bld) [#/Vol] 3.21 10*3/uL Low [facility] WITH AUTO DIFFERENTIALon 04-05-2025 AUTO NRBC 0.0 % Normal [facility] Comment on above: Performed By: #### L [id number] #### LAB [address] [place] [address] Jack Mendoza M.D. [id number] AUTO NRBC ABS COUNT 0.00 K/mcL Normal 0.00-0.00 [facility] Comment on above: Performed By: #### L [id number] #### LAB [address] [place] [address] Jack Mendoza M.D. [id number] BASOPHILS ABSOLUTE COUNT 0.01 K/mcL Normal 0.00-0.30 [facility] Comment on above: Performed By: #### L [id number] #### LAB [address] [place] [address] Jack Mendoza M.D. [id number] Basophils/100 WBC (Bld) 0.3 % Normal [facility] Comment on above: Performed By: #### L [id number] #### LAB [address] [place] [address] Jack Mendoza M.D. [id number] Eosinophils (Bld) [#/Vol] 0.05 10*3/uL Normal 0.00-0.50 [facility] Comment on above: Performed By: #### L [id number] #### LAB [address] [place] [address] Jack Mendoza M.D. [id number] Eosinophils/100 WBC (Bld) 1.6 % [facility] Comment on above: Performed By: #### L [id number] #### LAB [address] [place] [address] Jack Mendoza M.D. [id number] Erythrocyte distribution width (RBC) [Ratio] 17.1 % High 11.6-14.8 [facility] Comment on above: Performed By: #### L [id number] #### LAB [address] [place] [address] Jack Mendoza M.D. [id number] Hematocrit (Bld) [Volume fraction] 32.7 % Low 41.0-53.0 [facility] Comment on above: Performed By: #### L [id number] #### LAB [address] [place] [address] Jack Mendoza M.D. [id number] Hemoglobin (Bld) [Mass/Vol] 9.8 g/dL Low 13.5-17.5 [facility] Comment on above: Performed By: #### L [id number] #### LAB [address] [place] [address] Jack Mendoza M.D. [id number] IG ABSOLUTE 0.01 K/mcL Normal 0.00-0.30 [facility] Comment on above: Performed By: #### L [id number] #### LAB [address] [place] [address] Jack Mendoza M.D. [id number] IG PERCENT 0.30 % [facility] Comment on above: Result Comment: The IG parameter is the percentage of metamyelocytes, myelocytes and promyelocytes. An immature granulocyte count (IG) of 1% or more suggests the possibility of infection, an IG count of 3% is very likely related to an infection. Performed By: #### L [id number] #### LAB [address] [place] [address] Jack Mendoza M.D. [id number] Lymphocytes (Bld) [#/Vol] 0.50 10*3/uL Low 0.90-4.00 [facility] Comment on above: Performed By: #### L [id number] #### LAB [address] [place] [address] Jack Mendoza M.D. [id number] Lymphocytes/100 WBC (Bld) 15.6 % [facility] Comment on above: Performed By: #### L [id number] #### LAB [address] [place] [address] Jack Mendoza M.D. [id number] MCH (RBC) [Entitic mass] 21.7 pg Low 26.0-34.0 [facility] Comment on above: Performed By: #### L [id number] #### LAB [address] [place] [address] Jack Mendoza M.D. [id number] MCV (RBC) [Entitic vol] 72.3 fL Low 80.0-100.0 [facility] Comment on above: Performed By: #### L [id number] #### LAB [address] [place] [address] Jack Mendoza M.D. [id number] MEAN CORPUSCULAR HEMOGLOBIN CONC 30.0 g/dL Low 31.0-37.0 [facility] Comment on above: Performed By: #### L [id number] #### LAB [address] [place] [address] Jack Mendoza M.D. [id number] Monocytes (Bld) [#/Vol] 0.25 10*3/uL Low 0.30-0.90 [facility] Comment on above: Performed By: #### L [id number] #### LAB [address] [place] [address] Jack Mendoza M.D. [id number] Monocytes/100 WBC (Bld) 7.8 % Normal [facility] Comment on above: Performed By: #### L [id number] #### LAB [address] [place] [address] Jack Mendoza M.D. [id number] NEUTROPHILS ABSOLUTE COUNT 2.39 K/mcL Normal 1.70-7.00 [facility] Comment on above: Performed By: #### L [id number] #### LAB [address] [place] [address] Jack Mendoza M.D. [id number] Neutrophils/100 WBC (Bld) 74.4 % Normal [facility] Comment on above: Result Comment: Tiffany pheral smear reviewed manually Performed By: #### L [id number] #### LAB [address] [place] [address] Jack Mendoza M.D. [id number] Platelet mean volume (Bld) [Entitic vol] 9.3 fL Low 9.4-12.4 [facility] Comment on above: Performed By: #### L [id number] ####[facility] LAB [address] [place] [address] Jack Mendoza M.D. [id number] Platelets (Bld) [#/Vol] 95 10*3/uL Low 150-400 [facility] Comment on above: Performed By: #### L [id number] ####[facility] LAB [address] [place] [address] Jack Mendoza M.D. [id number] RBC (Bld) [#/Vol] 4.52 10*6/uL Normal 4.50-5.90 [facility] Comment on above: Performed By: #### L [id number] ####[facility] LAB [address] [place] [address] Jack Mendoza M.D. [id number] WBC (Bld) [#/Vol] 3.21 10*3/uL Low 4.50-11.00 [facility] Comment on above: Performed By: #### L [id number] ####[facility] LAB [address] [place] [address] Jack Mendoza M.D. [id number] CBC and Diff Morphologyon Ovalocytes LM Ql (Bld) Moderate [facility] Platelets LM Ql (Bld) Decreased Abnormal Normal [facility] Polychromasia LM Ql (Bld) Few [facility] RBC morphology finding Nom (Bld) See Comment [facility] Comment on above: RBC Indices confirme d with manual peripheral smear review. Disch Summon 04-05-2025 Disch Summ Normal [facility] LACTIC ACID, PLASMAon 2024 LACTIC ACID, PLASMA 0.7 mmol/L Normal 0.6-2.0 [facility] Comment on above: Performed By: #### 4 [id number] ####[facility] LAB [address] [place] [address] Jack Mendoza M.D. [id number] Lactate [Moles/Vol]on 2024 Interpretation and review of laboratory results Normal [facility] Lactic Acid, Plasmaon 2024 Lactate [Moles/Vol] 0.7 mmol/L 0.6 - 2. 0 mmol/L [facility] MORPHOLOGYon 04-05-2025 OVAL SCAN Moderate Normal [facility] Comment on above: Performed By: #### L [id number] ####[facility] LAB [address] [place] [address] Jack Mendoza M.D. [id number] PLATELET ESTIMATE Decreased Abnormal Normal [facility] Comment on above: Performed By: #### L [id number] ####[facility] LAB [address] [place] [address] Jack Mendoza M.D. [id number] POLY SCAN Few Normal [facility] Comment on above: Performed By: #### L [id number] ####[facility] LAB [address] [place] [address] Jack Mendoza M.D. [id number] RBC MORPH SCAN See Comment Normal [facility] Comment on above: Result Comment: RBC Indices confirmed with manual peripheral smear review. Performed By: #### L [id number] ####[facility] LAB [address] [place] [address] Jack Mendoza M.D. [id number] No Panel Informationon 04-05 Interpretation and review of laboratory results Abnormal [facility] XR CHEST PA/APon 04-05-2025 XR CHEST PA/AP Normal [facility] Comment on above: Order Comment: Injur y/Trauma or Illness?:Illness/OtherHow long have you had these symptoms (acute/chronic)?:AcuteReason for exam?:Respiratory failureHistory of cancer?:uSurgeries, chemotherapy, or radiation?:uType of Exam?:InitialAdditional signs and symptoms?:. BASIC METABOLIC PANELon 03-22 Anion gap [Moles/Vol] 15 mmol/L Normal - [facility] Comment on above: Order Comment: [facility] has implemented the eGFR calculation approach that does not have a coefficient for race that conforms to the NKF-ASN Task Force Recommendations. Performed By: #### 4 6124 ####[facility] LAB [address] [place], [place] [address] Jack Mendoza M.D. [id number] Calcium [Mass/Vol] 8.7 mg/dL Normal 8.4-10.2 [facility] Comment on above: Order Comment: [facility] has implemented the eGFR calculation approach that does not have a coefficient for race that conforms to the NKF-ASN Task Force Recommendations. Performed By: #### 4 6124 ####[facility] LAB [address] [place] [address] Jack Mendoza M.D. [id number] Chloride [Moles/Vol] 96 mmol/L Low 98-108 [facility] Comment on above: Order Comment: [facility] has implemented the eGFR calculation approach that does not have a coefficient for race that conforms to the NKF-ASN Task Force Recommendations. Performed By: #### 4 6124 #### LAB [address] [place] [address] Jack Mendoza M.D. [id number] Creatinine [Mass/Vol] 0.65 mg/dL Normal 0.50-1.30 [facility] Comment on above: Order Comment: [facility] has implemented the eGFR calculation approach that does not have a coefficient for race that conforms to the NKF-ASN Task Force Recommendations. Performed By: #### 4 6124 #### LAB [address] [place] [address] Jack Mendoza M.D. [id number] EGFR 109 mL/min/1.73 m2 Normal >=60 [facility] Comment on above: Order Comment: [facility] has implemented the eGFR calculation approach that does not have a coefficient for race that conforms to the NKF-ASN Task Force Recommendations. Result Comment: Ashley mated GFR was calculated using the 2020 CKD-EPI creatinine equation. Performed By: #### 4 6124 #### LAB [address] [place] [address] Jack Mendoza M.D. [id number] Glucose [Mass/Vol] 124 mg/dL High 65-99 [facility] Comment on above: Order Comment: [facility] has implemented the eGFR calculation approach that does not have a coefficient for race that conforms to the NKF-ASN Task Force Recommendations. Performed By: #### 4 6124 #### LAB [address] [place] [address] Jack Mendoza M.D. [id number] HCO3 (Bld) [Moles/Vol] 27 mmol/L Normal 21-32 [facility] Comment on above: Order Comment: [facility] has implemented the eGFR calculation approach that does not have a coefficient for race that conforms to the NKF-ASN Task Force Recommendations. Performed By: #### 4 6124 #### LAB [address] [place] [address] Jack Mendoza M.D. [id number] Potassium [Moles/Vol] 4.4 mmol/L Normal 3.5-5.1 [facility] Comment on above: Order Comment: [facility] has implemented the eGFR calculation approach that does not have a coefficient for race that conforms to the NKF-ASN Task Force Recommendations. Performed By: #### 4 6124 #### LAB [address] [place] [address] Jack Mendoza M.D. [id number] Sodium [Moles/Vol] 134 mmol/L Low 135-145 [facility] Comment on above: Order Comment: [facility] has implemented the eGFR calculation approach that does not have a coefficient for race that conforms to the NKF-ASN Task Force Recommendations. Performed By: #### 4 6138 #### LAB [address] [place] [address] Jack Mendoza M.D. [id number] Urea nitrogen [Mass/Vol] 12 mg/dL Normal 8-25 [facility] Comment on above: Order Comment: [facility] has implemented the eGFR calculation approach that does not have a coefficient for race that conforms to the NKF-ASN Task Force Recommendations. Performed By: #### 4 6154 #### LAB [address] [place] [address] Jack Mendoza M.D. [id number] Urea nitrogen/Creatinine [Mass ratio] 18.5 mg/mg Normal 10.0-20.0 [facility] Comment on above: Order Comment: [facility] has implemented the eGFR calculation approach that does not have a coefficient for race that conforms to the NKF-ASN Task Force Recommendations. Performed By: #### 4 6124 ####[facility] LAB [address] [place], [place] [address] Jack Mendoza M.D. [id number] CBC Auto Differentialon 03-22 Basophils (Bld) [#/Vol] 0.02 10*3/uL [facility] Basophils/100 WBC (Bld) 0.4 % [facility] Eosinophils (Bld) [#/Vol] 0.13 10*3/uL [facility] Eosinophils/100 WBC (Bld) 2.8 % [facility] Erythrocyte distribution width (RBC) [Entitic vol] 17.2 % High 11.6 - 14.8 % [facility] Hematocrit (Bld) [Volume fraction] 37.6 % Low 41.0 - 53.0 % [facility] Hemoglobin (Bld) [Mass/Vol] 11.2 g/dL Low 13.5 - 17.5 g/dL [facility] Immature granulocytes (Bld) [#/Vol] 0.02 10*3/uL [facility] Immature granulocytes/100 WBC (Bld) 0.4 % [facility] Comment on above: The IG parameter is the percentage of metamyelocytes, myelocytes and promyelocytes. An immature granulocyte count (IG) of 1% or more suggests the possibility of infection, an IG count of 3% is very likely related to an infection. Interpretation and review of laboratory results Abnormal [facility] Lymphocytes (Bld) [#/Vol] 1.13 10*3/uL [facility] Lymphocytes/100 WBC (Bld) 24 % [facility] MCH (RBC) [Entitic mass] 21.5 pg Low 26.0 - 34.0 pg [facility] MCHC (RBC) [Mass/Vol] 29.8 g/dL Low 31.0 - 37.0 g/dL [facility] MCV (RBC) [Entitic vol] 72.2 fL Low 80.0 - 100.0 fL [facility] Monocytes (Bld) [#/Vol] 0.42 10*3/uL [facility] Monocytes/100 WBC (Bld) 8.9 % [facility] Neutrophils (Bld) [#/Vol] 2.99 10*3/uL [facility] Neutrophils/100 WBC (Bld) 63.5 % [facility] Nucleated RBC (Bld) [#/Vol] 0 10*3/uL [facility] Nucleated RBC/100 WBC (Bld) [Ratio] 0 % [facility] Platelet mean volume (Bld) [Entitic vol] 9.9 fL 9.4 - 12.4 fL [facility] Platelets (Bld) [#/Vol] 124 10*3/uL Low [facility] RBC (Bld) [#/Vol] 5.21 10*6/uL [facility] WBC (Bld) [#/Vol] 4.71 10*3/uL [facility] CBC WITH AUTO DIFFERENTIALon 04-04-2025 AUTO NRBC 0.0 % [facility] Comment on above: Performed By: #### L [id number] #### LAB [address] [place] [address] Jack Mendoza M.D. [id number] AUTO NRBC ABS COUNT 0.00 K/mcL Normal 0.00-0.00 [facility] Comment on above: Performed By: #### L [id number] #### LAB [address] [place] [address] Jack Mendoza M.D. [id number] BASOPHILS ABSOLUTE COUNT 0.02 K/mcL Normal 0.00-0.30 [facility] Comment on above: Performed By: #### L [id number] #### LAB [address] [place] [address] Jack Mendoza M.D. [id number] Basophils/100 WBC (Bld) 0.4 % Normal [facility] Comment on above: Performed By: #### L [id number] #### LAB [address] [place] [address] Jack Mendoza M.D. [id number] Eosinophils (Bld) [#/Vol] 0.13 10*3/uL Normal 0.00-0.50 [facility] Comment on above: Performed By: #### L [id number] #### LAB [address] [place] [address] Jack Mendoza M.D. [id number] Eosinophils/100 WBC (Bld) 2.8 % Normal [facility] Comment on above: Performed By: #### L [id number] #### LAB [address] [place] [address] Jack Mendoza M.D. [id number] Erythrocyte distribution width (RBC) [Ratio] 17.2 % High 11.6-14.8 [facility] Comment on above: Performed By: #### L [id number] #### LAB [address] [place] [address] Jack Mendoza M.D. [id number] Hematocrit (Bld) [Volume fraction] 37.6 % Low 41.0-53.0 [facility] Comment on above: Performed By: #### L [id number] #### LAB [address] [place] [address] Jack Mendoza M.D. [id number] Hemoglobin (Bld) [Mass/Vol] 11.2 g/dL Low 13.5-17.5 [facility] Comment on above: Performed By: #### L [id number] #### LAB [address] [place] [address] Jack Mendoza M.D. [id number] IG ABSOLUTE 0.02 K/mcL Normal 0.00-0.30 [facility] Comment on above: Performed By: #### L [id number] #### LAB [address] [place] [address] Jack Mendoza M.D. [id number] IG PERCENT 0.40 % Normal [facility] Comment on above: Result Comment: The IG parameter is the percentage of metamyelocytes, myelocytes and promyelocytes. An immature granulocyte count (IG) of 1% or more suggests the possibility of infection, an IG count of 3% is very likely related to an infection. Performed By: #### L [id number] #### LAB [address] [place] [address] Jack Mendoza M.D. [id number] Lymphocytes (Bld) [#/Vol] 1.13 10*3/uL Normal 0.90-4.00 [facility] Comment on above: Performed By: #### L [id number] #### LAB [address] [place] [address] Jack Mendoza M.D. [id number] Lymphocytes/100 WBC (Bld) 24.0 % Normal [facility] Comment on above: Performed By: #### L [id number] #### LAB [address] [place] [address] Jack Mendoza M.D. [id number] MCH (RBC) [Entitic mass] 21.5 pg Low 26.0-34.0 [facility] Comment on above: Performed By: #### L [id number] #### LAB [address] [place] [address] Jack Mendoza M.D. [id number] MCV (RBC) [Entitic vol] 72.2 fL Low 80.0-100.0 [facility] Comment on above: Performed By: #### L [id number] #### LAB [address] [place] [address] Jack Mendoza M.D. [id number] MEAN CORPUSCULAR HEMOGLOBIN CONC 29.8 g/dL Low 31.0-37.0 [facility] Comment on above: Performed By: #### L [id number] #### LAB [address] [place] [address] Jack Mendoza M.D. [id number] Monocytes (Bld) [#/Vol] 0.42 10*3/uL Normal 0.30-0.90 [facility] Comment on above: Performed By: #### L [id number] #### LAB [address] [place] [address] Jack Mendoza M.D. [id number] Monocytes/100 WBC (Bld) 8.9 % [facility] Comment on above: Performed By: #### L [id number] #### LAB [address] [place] [address] Jack Mendoza M.D. [id number] NEUTROPHILS ABSOLUTE COUNT 2.99 K/mcL Normal 1.70-7.00 [facility] Comment on above: Performed By: #### L [id number] #### LAB [address] [place] [address] Jack Mendoza M.D. [id number] Neutrophils/100 WBC (Bld) 63.5 % Normal [facility] Comment on above: Performed By: #### L [id number] #### LAB [address] [place] [address] Jack Mendoza M.D. [id number] Platelet mean volume (Bld) [Entitic vol] 9.9 fL Normal 9.4-12.4 [facility] Comment on above: Performed By: #### L [id number] #### LAB [address] [place] [address] Jack Mendoza M.D. [id number] Platelets (Bld) [#/Vol] 124 10*3/uL Low 150-400 [facility] Comment on above: Performed By: #### L [id number] #### LAB [address] [place] [address] Jack Mendoza M.D. [id number] RBC (Bld) [#/Vol] 5.21 10*6/uL Normal 4.50-5.90 [facility] Comment on above: Performed By: #### L [id number] #### LAB [address] [place] [address] Jack Mendoza M.D. [id number] WBC (Bld) [#/Vol] 4.71 10*3/uL Normal 4.50-11.00 [facility] Comment on above: Performed By: #### L [id number] #### LAB [address] [place] [address] Jack Mendoza M.D. [id number] Glucose (Bld) [Mass/Vol]on 04-04-2025 Glucose [Mass/Vol] 143 mg/dL High 65 - 99 mg/dL [facility] Interpretation and review of laboratory results Abnormal [facility] POC ARTERIAL BLOOD GAS PANEL -ERIKA Ortega 04-04-2025 [id number] 101.3 mm Hg Normal [facility] Comment on above: Order Comment: Criti drea result acted upon time of test. Test performed at bedside. BASE EXCESS, ARTERIAL 0.9 Normal -2.0-2.0 [facility] Comment on above: Order Comment: Criti drea result acted upon time of test. Test performed at bedside. CALCIUM IONIZED 4.7 mg/dL Normal 4.5-5.3 [facility] Comment on above: Order Comment: Criti drea result acted upon time of test. Test performed at bedside. CARBOXYHEMOGLOBIN 1.7 % of total Hb High <=1.5 [facility] Comment on above: Order Comment: Criti drea result acted upon time of test. Test performed at bedside. Result Comment: Refe rence Ranges:Suburban Non-smokers: <1.5%Smokers: 1.5-5.0%Heavy Smokers: 5.0-9.0% Chloride [Moles/Vol] 97 mmol/L Low 98-108 [facility] Comment on above: Order Comment: Criti drae result acted upon time of test. Test performed at bedside. FIO2 44 Normal [facility] Comment on above: Order Comment: Criti drea result acted upon time of test. Test performed at bedside. Glucose [Mass/Vol] 126 mg/dL High 65-99 [facility] Comment on above: Order Comment: Criti drea result acted upon time of test. Test performed at bedside. HCO3 (Bld) [Moles/Vol] 29.6 mmol/L High 22.0-26.0 [facility] Comment on above: Order Comment: Criti drea result acted upon time of test. Test performed at bedside. Hematocrit (Bld) [Volume fraction] 36.2 % Low 41.0-53.0 [facility] Comment on above: Order Comment: Criti drea result acted upon time of test. Test performed at bedside. Hemoglobin (Bld) [Mass/Vol] 11.8 g/dL Low 13.5-17.5 [facility] Comment on above: Order Comment: Criti drea result acted upon time of test. Test performed at bedside. LACTIC ACID, WHOLE BLOOD 4.7 mmol/L Off scale high 0.6-2.0 [facility] Comment on above: Order Comment: Criti drea result acted upon time of test. Test performed at bedside. LITER FLOW 6 Normal [facility] Comment on above: Order Comment: Criti drea result acted upon time of test. Test performed at bedside. METHEMOGLOBIN 0.4 % Normal 0.0-2.0 [facility] Comment on above: Order Comment: Criti drea result acted upon time of test. Test performed at bedside. O2HB 96.2 % Normal 94.0-98.0 [facility] Comment on above: Order Comment: Criti drea result acted upon time of test. Test performed at bedside. Oxygen saturation in Blood 98.4 % Normal 92.0-99.0 [facility] Comment on above: Order Comment: Criti drea result acted upon time of test. Test performed at bedside. PCO2 ARTERIAL 68.5 mm Hg High 35.0-45.0 [facility] Comment on above: Order Comment: Criti drea result acted upon time of test. Test performed at bedside. PH ARTERIAL 7.24 Low 7.35-7.45 [facility] Comment on above: Order Comment: Criti drea result acted upon time of test. Test performed at bedside. PO2 ARTERIAL 123 mm Hg High 80-100 [facility] Comment on above: Order Comment: Criti drea result acted upon time of test. Test performed at bedside. Potassium [Moles/Vol] 4.1 mmol/L Normal 3.5-5.1 [facility] Comment on above: Order Comment: Criti drea result acted upon time of test. Test performed at bedside. Sodium [Moles/Vol] 136 mmol/L Normal 135-145 [facility] Comment on above: Order Comment: Criti drea result acted upon time of test. Test performed at bedside. SPECIMEN SOURCE RADIANCE Radial, right Normal [facility] Comment on above: Order Comment: Criti drea result acted upon time of test. Test performed at bedside. POC Arterial Blood Gas Panel -Pulmon 04-04-2025 Alveolar-arterial oxygen Partial pressure difference 101.3 mm Hg [facility] Base excess Calc (Bld) [Moles/Vol] 0.9 mmol/L -2.0 - 2.0 [facility] Calcium.ionized [Mass/Vol] 4.7 mg/dL 4.5 - 5.3 mg/dL [facility] Carboxyhemoglobin (BldA) [Mass fraction] 1.7 High [facility] Comment on above: Reference Ranges: Suburban Non-smokers: <1.5% Smokers: 1.5-5.0% Heavy Smokers: 5.0-9.0% CO2 (Bld) [Partial pressure] 68.5 mm[Hg] High [facility] Glucose post fast [Mass/Vol] 126 mg/dL High 65 - 99 mg/dL [facility] Hematocrit (BldA) [Volume fraction] 36.2 % Low 41.0 - 53.0 % [facility] Inhaled oxygen concentration 44 % [facility] Inhaled oxygen flow rate 6 L/min [facility] Interpretation and review of laboratory results Abnormal [facility] Lactate [Moles/Vol] 4.7 mmol/L Critically high 0.6 - 2.0 mmol/L [facility] Methemoglobin (BldA) [Mass fraction] 0.4 % 0.0 - 2.0 % [facility] Oxygen (Bld) [Partial pressure] 123 mm[Hg] High [facility] Oxyhemoglobin (BldA) [Mass fraction] 96.2 % 94.0 - 98.0 % [facility] pH (Bld) 7.24 [pH] Low 7.35 - 7.45 [facility] Specimen source Nom (Unsp spec) Radial, right [facility] Critical result acte d upon time of test. Test performed at bedside. [facility] POC GLUCOSE - Shannon 025 Glucose [Mass/Vol] 143 mg/dL High 65-99 [facility] AMMONIAon 04-02-2025 AMMONIA 49 micromol/L High 12 [facility] Comment on above: Performed By: #### 4 [id number] #### LAB [address] [place], [place] [address] Jack Mendoza M.D. [id number] Ammoniaon 04-02-2025 Ammonia (P) [Mass/Vol] 49 ug/dL High [facility] Ammonia (P) [Mass/Vol]on Interpretation and review of laboratory results Abnormal [facility] BASIC METABOLIC PANELon 03-22 Anion gap [Moles/Vol] 11 mmol/L Normal 10-20 [facility] Comment on above: Order Comment: [facility] has implemented the eGFR calculation approach that does not have a coefficient for race that conforms to the NKF-ASN Task Force Recommendations. Performed By: #### 4 [id number] #### LAB [address] [place] [address] Jack Mendoza M.D. [id number] Calcium [Mass/Vol] 8.8 mg/dL Normal 8.4-10.2 [facility] Comment on above: Order Comment: [facility] has implemented the eGFR calculation approach that does not have a coefficient for race that conforms to the NKF-ASN Task Force Recommendations. Performed By: #### 4 [id number] #### LAB [address] [place] [id number] Jack Mendoza M.D. [id number] Chloride [Moles/Vol] 99 mmol/L Normal 98-108 [facility] Comment on above: Order Comment: [facility] has implemented the eGFR calculation approach that does not have a coefficient for race that conforms to the NKF-ASN Task Force Recommendations. Performed By: #### 4 [id number] #### LAB [address] [place] [address] Jack Mendoza M.D. [id number] Creatinine [Mass/Vol] 0.47 mg/dL Low 0.50-1.30 [facility] Comment on above: Order Comment: [facility] has implemented the eGFR calculation approach that does not have a coefficient for race that conforms to the NKF-ASN Task Force Recommendations. Performed By: #### 4 [id number] #### LAB [address] [place] [address] Jack Mendoza M.D. [id number] EGFR 120 mL/min/1.73 m2 Normal >=60 [facility] Comment on above: Order Comment: [facility] has implemented the eGFR calculation approach that does not have a coefficient for race that conforms to the NKF-ASN Task Force Recommendations. Result Comment: Ashley mated GFR was calculated using the 2020 CKD-EPI creatinine equation. Performed By: #### 4 [id number] #### LAB [address] [place] [address] Jack Mendoza M.D. [id number] Glucose [Mass/Vol] 110 mg/dL High 65-99 [facility] Comment on above: Order Comment: [facility] has implemented the eGFR calculation approach that does not have a coefficient for race that conforms to the NKF-ASN Task Force Recommendations. Performed By: #### 4 [id number] #### LAB [address] [place] [address] Jack Mendoza M.D. [id number] HCO3 (Bld) [Moles/Vol] 29 mmol/L Normal 21-32 [facility] Comment on above: Order Comment: [facility] has implemented the eGFR calculation approach that does not have a coefficient for race that conforms to the NKF-ASN Task Force Recommendations. Performed By: #### 4 6124 #### LAB [address] [place] [address] Jack Mendoza M.D. [id number] Potassium [Moles/Vol] 4.4 mmol/L Normal 3.5-5.1 [facility] Comment on above: Order Comment: [facility] has implemented the eGFR calculation approach that does not have a coefficient for race that conforms to the NKF-ASN Task Force Recommendations. Result Comment: Slig htly Hemolyzed Performed By: #### 4 [id number] #### LAB [address] [place] [address] Jack Mendoza M.D. [id number] Sodium [Moles/Vol] 135 mmol/L Normal 135-145 [facility] Comment on above: Order Comment: [facility] has implemented the eGFR calculation approach that does not have a coefficient for race that conforms to the NKF-ASN Task Force Recommendations. Performed By: #### 4 [id number] #### LAB [address] [place] [address] Jack Mendoza M.D. [id number] Urea nitrogen [Mass/Vol] 13 mg/dL Normal 8-25 [facility] Comment on above: Order Comment: [facility] has implemented the eGFR calculation approach that does not have a coefficient for race that conforms to the NKF-ASN Task Force Recommendations. Performed By: #### 4 6124 #### LAB [address] [place], [place] [address] Jack Mendoza M.D. [id number] Urea nitrogen/Creatinine [Mass ratio] 27.7 mg/mg High 10.0-20.0 [facility] Comment on above: Order Comment: [facility] has implemented the eGFR calculation approach that does not have a coefficient for race that conforms to the NKF-ASN Task Force Recommendations. Performed By: #### 4 6124 ####[facility] [address] [place], [place] [address] Jack Mendoza M.D. [id number] BLOOD CULTURE AEROBIC/ANAERO BICon 04-02-2025 BLOOD CULTURE AEROBIC/ANAEROBIC BLOOD CULTURE No Growth after 5 days Normal [facility] Comment on above: Performed By: #### 4 [id number] ####[facility] [address] [place] [address] Venancio Richardson M.D. [id number] Basic metabolic 2000 panelOr dered By: Caty Sanchez on 04-02-2025 Anion gap [Moles/Vol] 11 mmol/L 10 - 20 mmol/L [facility] Calcium [Mass/Vol] 8.8 mg/dL 8.4 - 10. 2 mg/dL [facility] Chloride [Moles/Vol] 99 mmol/L 98 - 10 8 mmol/L [facility] Creatinine [Mass/Vol] 0.47 mg/dL Low 0.50 - 1.30 mg/dL [facility] GFR/1.73 sq M.predicted CKD-EPI (S/P/Bld) [Vol rate/Area] 120 - PINF [facility] Comment on above: Estimated GFR was ca lculated using the 2020 CKD-EPI creatinine equation. Glucose [Mass/Vol] 110 mg/dL High 65 - 99 mg/dL [facility] HCO3 [Moles/Vol] 29 mmol/L 21 - 32 mmol/L [facility] Interpretation and review of laboratory results Abnormal [facility] Potassium [Moles/Vol] 4.4 mmol/L 3.5 - 5.1 mmol/L [facility] Comment on above: Slightly Hemolyzed Sodium [Moles/Vol] 135 mmol/L 135 - 145 mmol/L [facility] Urea nitrogen [Mass/Vol] 13 mg/dL 8 - 25 mg/dL [facility] Urea nitrogen/Creatinine [Mass ratio] 27.7 mg/mg High 10.0 - 20.0 [facility] has implemented the eGFR calculation approach that does not have a coefficient for race that conforms to the NKF-ASN Task Force Recommendations. [facility] CBC Auto Differentialon 03-22 Basophils (Bld) [#/Vol] 0.01 10*3/uL [facility] Basophils/100 WBC (Bld) 0.3 % [facility] Eosinophils (Bld) [#/Vol] 0.04 10*3/uL [facility] Eosinophils/100 WBC (Bld) 1.3 % [facility] Erythrocyte distribution width (RBC) [Entitic vol] 18.7 % High 11.6 - 14.8 % [facility] Hematocrit (Bld) [Volume fraction] 35.8 % Low 41.0 - 53.0 % [facility] Hemoglobin (Bld) [Mass/Vol] 10.9 g/dL Low 13.5 - 17.5 g/dL [facility] Immature granulocytes (Bld) [#/Vol] 0.03 10*3/uL [facility] Immature granulocytes/100 WBC (Bld) 1 % [facility] Comment on above: The IG parameter is the percentage of metamyelocytes, myelocytes and promyelocytes. An immature granulocyte count (IG) of 1% or more suggests the possibility of infection, an IG count of 3% is very likely related to an infection. Lymphocytes (Bld) [#/Vol] 0.47 10*3/uL Low [facility] Lymphocytes/100 WBC (Bld) 15.7 % [facility] MCH (RBC) [Entitic mass] 21.6 pg Low 26.0 - 34.0 pg [facility] MCHC (RBC) [Mass/Vol] 30.4 g/dL Low 31.0 - 37.0 g/dL [facility] MCV (RBC) [Entitic vol] 71 fL Low 80.0 - 100.0 fL [facility] Monocytes (Bld) [#/Vol] 0.25 10*3/uL Low [facility] Monocytes/100 WBC (Bld) 8.3 % [facility] Neutrophils (Bld) [#/Vol] 2.2 10*3/uL [facility] Neutrophils/100 WBC (Bld) 73.4 % [facility] Comment on above: Peripheral smear rev iewed manually Nucleated RBC (Bld) [#/Vol] 0 10*3/uL [facility] Nucleated RBC/100 WBC (Bld) [Ratio] 0 % [facility] Platelets (Bld) [#/Vol] 117 10*3/uL Low [facility] RBC (Bld) [#/Vol] 5.04 10*6/uL [facility] eah WBC (Bld) [#/Vol] 3 10*3/uL Low [facility] CBC WITH AUTO DIFFERENTIALon 04-02-2025 AUTO NRBC 0.0 % [facility] Comment on above: Performed By: #### L [id number] #### LAB [address] [place] [address] Jack Mendoza M.D. [id number] AUTO NRBC ABS COUNT 0.00 K/mcL Normal 0.00-0.00 [facility] Comment on above: Performed By: #### L [id number] #### LAB [address] [place] [address] Jack Mendoza M.D. [id number] BASOPHILS ABSOLUTE COUNT 0.01 K/mcL Normal 0.00-0.30 [facility] Comment on above: Performed By: #### L [id number] #### LAB [address] [place] [address] Jack Mendoza M.D. [id number] Basophils/100 WBC (Bld) 0.3 % [facility] Comment on above: Performed By: #### L [id number] #### LAB [address] [place] [address] Jack Mendoza M.D. [id number] Eosinophils (Bld) [#/Vol] 0.04 10*3/uL Normal 0.00-0.50 [facility] Comment on above: Performed By: #### L [id number] #### LAB [address] [place] [address] Jack Mendoza M.D. [id number] Eosinophils/100 WBC (Bld) 1.3 % Normal [facility] Comment on above: Performed By: #### L [id number] #### LAB [address] [place] [address] Jack Mendoza M.D. [id number] Erythrocyte distribution width (RBC) [Ratio] 18.7 % High 11.6-14.8 [facility] Comment on above: Performed By: #### L [id number] #### LAB [address] [place] [address] Jack Mendoza M.D. [id number] Hematocrit (Bld) [Volume fraction] 35.8 % Low 41.0-53.0 [facility] Comment on above: Performed By: #### L [id number] #### LAB [address] [place] [address] Jack Mendoza M.D. [id number] Hemoglobin (Bld) [Mass/Vol] 10.9 g/dL Low 13.5-17.5 [facility] Comment on above: Performed By: #### L [id number] #### LAB [address] [place] [address] Jack Mendoza M.D. [id number] IG ABSOLUTE 0.03 K/mcL Normal 0.00-0.30 [facility] Comment on above: Performed By: #### L [id number] #### LAB [address] [place] [address] Jack Mendoza M.D. [id number] IG PERCENT 1.00 % Normal [facility] Comment on above: Result Comment: The IG parameter is the percentage of metamyelocytes, myelocytes and promyelocytes. An immature granulocyte count (IG) of 1% or more suggests the possibility of infection, an IG count of 3% is very likely related to an infection. Performed By: #### L [id number] #### LAB [address] [place] [address] Jack Mendoza M.D. [id number] Lymphocytes (Bld) [#/Vol] 0.47 10*3/uL Low 0.90-4.00 [facility] Comment on above: Performed By: #### L [id number] #### LAB [address] [place] [address] Jack Mendoza M.D. [id number] Lymphocytes/100 WBC (Bld) 15.7 % Normal [facility] Comment on above: Performed By: #### L [id number] #### LAB [address] [place] [address] Jack Mendoza M.D. [id number] MCH (RBC) [Entitic mass] 21.6 pg Low 26.0-34.0 [facility] Comment on above: Performed By: #### L [id number] #### LAB [address] [place] [address] Jack Mendoza M.D. [id number] MCV (RBC) [Entitic vol] 71.0 fL Low 80.0-100.0 [facility] Comment on above: Performed By: #### L [id number] #### LAB [address] [place] [address] Jack Mendoza M.D. [id number] MEAN CORPUSCULAR HEMOGLOBIN CONC 30.4 g/dL Low 31.0-37.0 [facility] Comment on above: Performed By: #### L [id number] #### LAB [address] [place] [address] Jack Mendoza M.D. [id number] Monocytes (Bld) [#/Vol] 0.25 10*3/uL Low 0.30-0.90 [facility] Comment on above: Performed By: #### L [id number] #### LAB [address] [place] [address] Jack Mendoza M.D. [id number] Monocytes/100 WBC (Bld) 8.3 % Normal [facility] Comment on above: Performed By: #### L [id number] #### LAB [address] [place] [address] Jack Mendoza M.D. [id number] NEUTROPHILS ABSOLUTE COUNT 2.20 K/mcL Normal 1.70-7.00 [facility] Comment on above: Performed By: #### L [id number] #### LAB [address] [place] [address] Jack Mendoza M.D. [id number] Neutrophils/100 WBC (Bld) 73.4 % Normal [facility] Comment on above: Result Comment: Tiffany pheral smear reviewed manually Performed By: #### L [id number] ####[facility] [address] [place] [address] Jack Mendoza M.D. [id number] Platelets (Bld) [#/Vol] 117 10*3/uL Low 150-400 [facility] Comment on above: Performed By: #### L [id number] ####[facility] [address] [place] [address] Jack Mendoza M.D. [id number] RBC (Bld) [#/Vol] 5.04 10*6/uL Normal 4.50-5.90 [facility] Comment on above: Performed By: #### L [id number] #### LAB [address] [place] [address] Jack Mendoza M.D. [id number] WBC (Bld) [#/Vol] 3.00 10*3/uL Low 4.50-11.00 [facility] Comment on above: Performed By: #### L [id number] #### LAB [address] [place] [address] Jack Mendoza M.D. [id number] CBC and Diff Morphologyon Roe cells LM Ql (Bld) Few [facility] Ovalocytes LM Ql (Bld) Moderate [facility] Platelets LM Ql (Bld) Decreased Abnormal Normal [facility] Polychromasia LM Ql (Bld) Few [facility] RBC morphology finding Nom (Bld) See Comment [facility] Comment on above: RBC Indices confirme d with manual peripheral smear review. Target cells LM Ql (Bld) Few [facility] CRP [Mass/Vol]on 04-02-2025 Interpretation and review of laboratory results Abnormal [facility] CRP, INFLAMMATIONon 04-02-20 CRP [Mass/Vol] 16.3 mg/L High 0.0-10.0 [facility] Comment on above: Performed By: #### 4 [id number] #### LAB [address] [place] [address] Jack Mendoza M.D. [id number] CRP, Inflammationon 04-02-20 CRP [Mass/Vol] 16.3 mg/L High 0.0 - 10.0 mg/L [facility] ED Prov Noteon 04-02-2025 ED Prov Note Normal [facility] ESR Westergren method (Bld) [Velocity]on 04-02-2025 ESR (Bld) [Velocity] 64 mm/h High [facility] Interpretation and review of laboratory results Abnormal [facility] Combs Topon 04-02-2025 Extra Tube Hold for add-ons. [facility] Comment on above: Auto resulted. [facility] H AND Mike 04-02-2025 H AND P Normal [facility] HEPATIC FUNCTION PANELon Albumin [Mass/Vol] 3.4 g/dL Normal 3.2-5.2 [facility] Comment on above: Performed By: #### 4 5866 #### LAB [address] [place] [address] Jack Mendoza M.D. [id number] ALP [Catalytic activity/Vol] 91 U/L Normal 40-150 [facility] Comment on above: Performed By: #### 4 5866 #### LAB [address] [place] [address] Jack Mendoza M.D. [id number] ALT [Catalytic activity/Vol] 13 U/L Normal 0-50 U/L [facility] Comment on above: Performed By: #### 4 5866 ####[facility] [address] [place] [address] Jack Mendoza M.D. [id number] AST [Catalytic activity/Vol] 33 U/L Normal 0-50 U/L [facility] Comment on above: Result Comment: Slig htly Hemolyzed Performed By: #### 4 5866 #### LAB [address] [place] [address] Jack Mendoza M.D. [id number] Bilirubin [Mass/Vol] 0.9 mg/dL Normal 0.0-1.3 [facility] Comment on above: Performed By: #### 4 5866 ####[facility] [address] [place], [place] [address] Jack Mendoza M.D. [id number] Bilirubin.indirect [Mass/Vol] 0.3 mg/dL Normal 0.0-0.4 [facility] Comment on above: Result Comment: Slig htly Hemolyzed Performed By: #### 4 5866 ####[facility] [address] [place], [place] [address] Jack Mendoza M.D. [id number] Protein [Mass/Vol] 8.0 g/dL Normal 6.0-8.0 [facility] Comment on above: Performed By: #### 4 5866 #### LAB [address] [place], [place] [address] Jack Mendoza M.D. [id number] Hepatic function 2000 panelo n 04-02-2025 Albumin [Mass/Vol] 3.4 g/dL 3.2 - 5.2 g/dL [facility] ALP [Catalytic activity/Vol] 91 U/L 40 - 150 U/L [facility] ALT [Catalytic activity/Vol] 13 U/L 0 - 50 U/L [facility] AST [Catalytic activity/Vol] 33 U/L 0 - 50 U/L [facility] Comment on above: Slightly Hemolyzed Bilirubin [Mass/Vol] 0.9 mg/dL 0.0 - 1 .3 mg/dL [facility] Bilirubin.conjugated [Mass/Vol] 0.3 mg/dL 0.0 - 0.4 mg/dL [facility] Comment on above: Slightly Hemolyzed Interpretation and review of laboratory results Normal [facility] Protein [Mass/Vol] 8 g/dL 6.0 - 8.0 g/dL [facility] MORPHOLOGYon 04-02-2025 ROE CELLS Few Normal [facility] Comment on above: Performed By: #### L [id number] ####[facility] [address] [place], [place] [address] Jack Mendoza M.D. [id number] OVAL SCAN Moderate Normal [facility] Comment on above: Performed By: #### L [id number] ####[facility] [address] [place], [place] [address] Jack Mendoza M.D. [id number] PLATELET ESTIMATE Decreased Abnormal Normal [facility] Comment on above: Performed By: #### L [id number] ####[facility] [address] [place] [address] Jack Mendoza M.D. [id number] POLY SCAN Few Normal [facility] Comment on above: Performed By: #### L [id number] ####[facility] [address] [place] [address] Jack Mendoza M.D. [id number] RBC MORPH SCAN See Comment Normal [facility] Comment on above: Result Comment: RBC Indices confirmed with manual peripheral smear review. Performed By: #### L [id number] ####[facility] [address] [place] [address] Jack Mendoza M.D. [id number] TARGET CELL SCAN Few Normal [facility] Comment on above: Performed By: #### L [id number] ####[facility] [address] [place] [address] Jack Mendoza M.D. [id number] NT PRO BNPon 04-02-2025 Natriuretic peptide B (Bld) [Mass/Vol] 189 pg/mL Normal 0-300 [facility] Comment on above: Order Comment: Pride Study Cut-offsRule In:< /= 50 Years >450 pg/mL51 Years - 75 Years >900 pg/mL76 Years - 99 Years >1800 pg/mLRule Out:All patients <300 pg/mL Performed By: #### 4 7395 ####[facility] [address] [place] [address] Jack Mendoza M.D. [id number] NT Pro BNPon 04-02-2025 Natriuretic peptide.B prohormone N-Terminal [Mass/Vol] 189 pg/mL 0 - 300 pg/mL [facility] Natriuretic peptide.B prohor randi N-Terminal [Mass/Vol]on 04-02-2025 Interpretation and review of laboratory results Normal [facility] Pride Study Cut-offs Rule In: < /= 50 Years >450 pg/mL 51 Years - 75 Years >900 pg/mL 76 Years - 99 Years >1800 pg/mL Rule Out: All patients <300 pg/mL [facility] No Panel Informationon 04-02 [facility] Interpretation and review of laboratory results Abnormal [facility] SEDIMENTATION RATEon 025 SEDIMENTATION RATE, ERYTHROCYTE 64 mm/hr High 0-20 [facility] Comment on above: Performed By: #### 4 6477 #### LAB [address] [place] [address] Jack Mendoza M.D. [id number] TROPONIN X 2 (NOW AND REPEAT IN 2 HOURS)on 04-02-2025 TROPONIN T DELTA CHANGE INTERPRETATION Delta troponin requires at least 2 hours between collections. Normal [facility] Comment on above: Performed By: #### 4 [id number] #### LAB [address] [address] Jack Mendoza M.D. [id number] TROPONIN T NG/L 8 ng/L Normal <=22 [facility] Comment on above: Performed By: #### 4 6608 #### LAB [address] [address] Jack Mendoza M.D. [id number] BASELINE TROPONIN T NG/L 8 ng/L Normal <=22 [facility] Comment on above: Performed By: #### 4 6608 #### LAB [address] [address] Jack Mendoza M.D. [id number] TROPONIN T INTERPRETATION Normal Normal [facility] Comment on above: Performed By: #### 4 6608 #### LAB [address] [address] Jack Mendoza M.D. [id number] Troponin x 2 (Now and Repeat in 2 hours)on 04-02-2025 Interp Troponin T Delta Change Delta troponin requires at least 2 hours between collections. [facility] Troponin T.cardiac High sensitivity method [Mass/Vol] 8 ng/L NINF - 22 ng/L [facility] Troponin T 8 ng/L NINF - 22 ng/L [facility] Troponin T Interpretation Normal [facility] XR CHEST PA/APon 04-02-2025 XR CHEST PA/AP Normal [facility] Comment on above: Order Comment: Injur y/Trauma or Illness?:Illness/OtherHow long have you had these symptoms (acute/chronic)?:AcuteReason for exam?:edemaHistory of cancer?:uSurgeries, chemotherapy, or radiation?:uType of Exam?:InitialAdditional signs and symptoms?:weakness XR Chest PA and Abdomen APon 04-02-2025 Low lung volumes with chronic interstitial changes. No consolidation or evidence congestive heart failure. Workstation ID: [id number] [employer] EXAMINATION: XR CHEST PA/AP 04/02/2025 1:11 pm [...] congestive heart failure. Degenerative changes spine shoulders. [facility] Carmen Garcia MD - 04/02/2025 EXAMINATION: [...] evidence congestive heart failure. Workstation ID: [id number] [facility] Radiology Study observation (narrative) [facility] XR Chest PA and Abdomen APOr dered By: Carmen Garcia on 04-02-2025 [facility] Work Phone: XR KNEE RIGHT 2 VIEWS (STAND NO)on 04-02-2025 XR KNEE RIGHT 2 VIEWS (STANDARD) Normal [facility] Comment on above: Order Comment: Injur y/Trauma or Illness?:Illness/OtherHow long have you had these symptoms (acute/chronic)?:AcuteReason for exam?:nki, weaknessHistory of cancer?:uSurgeries, chemotherapy, or radiation?:uType of Exam?:InitialAdditional signs and symptoms?:pain XR Knee - right 2 Viewson No acute process. Chronic changes including effusion. Workstation ID: [id number] [employer] RIS EXAMINATION: XR KNEE RIGHT 2 VIEWS [...] Chronic changes including effusion. Workstation ID: [id number] [facility] Radiology Study observation (narrative) [facility] BASIC METABOLIC PANELon 070 Anion gap [Moles/Vol] 12 mmol/L Normal 10-20 [facility] Comment on above: Order Comment: [facility] has implemented the eGFR calculation approach that does not have a coefficient for race that conforms to the NKF-ASN Task Force Recommendations. Performed By: #### 4 6124 ####[facility] [address] [place], [place] [address] Jack Mendoza M.D. [id number] Calcium [Mass/Vol] 8.3 mg/dL Low 8.4-10.2 [facility] Comment on above: Order Comment: [facility] has implemented the eGFR calculation approach that does not have a coefficient for race that conforms to the NKF-ASN Task Force Recommendations. Performed By: #### 4 6124 #### LAB [address] [address] Jack Mendoza M.D. [id number] Chloride [Moles/Vol] 102 mmol/L Normal 98-108 [facility] Comment on above: Order Comment: [facility] has implemented the eGFR calculation approach that does not have a coefficient for race that conforms to the NKF-ASN Task Force Recommendations. Performed By: #### 4 6124 #### LAB [address] [address] Jack Mendoza M.D. [id number] Creatinine [Mass/Vol] 0.72 mg/dL Normal 0.50-1.30 [facility] Comment on above: Order Comment: [facility] has implemented the eGFR calculation approach that does not have a coefficient for race that conforms to the NKF-ASN Task Force Recommendations. Performed By: #### 4 6124 #### LAB [address] [address] Jack Mendoza M.D. [id number] EGFR 106 mL/min/1.73 m2 Normal >=60 [facility] Comment on above: Order Comment: [facility] has implemented the eGFR calculation approach that does not have a coefficient for race that conforms to the NKF-ASN Task Force Recommendations. Result Comment: Ashley mated GFR was calculated using the 2020 CKD-EPI creatinine equation. Performed By: #### 4 6124 #### LAB [address] [address] Jack Mendoza M.D. [id number] Glucose [Mass/Vol] 102 mg/dL High 65-99 [facility] Comment on above: Order Comment: [facility] has implemented the eGFR calculation approach that does not have a coefficient for race that conforms to the NKF-ASN Task Force Recommendations. Performed By: #### 4 6124 #### LAB [address] [address] Jack Mendoza M.D. [id number] HCO3 (Bld) [Moles/Vol] 25 mmol/L Normal 21-32 [facility] Comment on above: Order Comment: [facility] has implemented the eGFR calculation approach that does not have a coefficient for race that conforms to the NKF-ASN Task Force Recommendations. Performed By: #### 4 6124 #### LAB [address] [address] Jack Mendoza M.D. [id number] Potassium [Moles/Vol] 4.2 mmol/L Normal 3.5-5.1 [facility] Comment on above: Order Comment: [facility] has implemented the eGFR calculation approach that does not have a coefficient for race that conforms to the NKF-ASN Task Force Recommendations. Performed By: #### 4 6124 #### LAB [address] [address] Jcak Mendoza M.D. [id number] Sodium [Moles/Vol] 135 mmol/L Normal 135-145 [facility] Comment on above: Order Comment: [facility] has implemented the eGFR calculation approach that does not have a coefficient for race that conforms to the NKF-ASN Task Force Recommendations. Performed By: #### 4 6115 #### LAB [address] [address] Jack Mendoza M.D. [id number] Urea nitrogen [Mass/Vol] 13 mg/dL Normal 8-25 [facility] Comment on above: Order Comment: [facility] has implemented the eGFR calculation approach that does not have a coefficient for race that conforms to the NKF-ASN Task Force Recommendations. Performed By: #### 4 6163 #### LAB [address] [address] Jack Mendoza M.D. [id number] Urea nitrogen/Creatinine [Mass ratio] 18.1 mg/mg Normal 10.0-20.0 [facility] Comment on above: Order Comment: [facility] has implemented the eGFR calculation approach that does not have a coefficient for race that conforms to the NKF-ASN Task Force Recommendations. Performed By: #### 4 6124 #### LAB [address] [place] [address] Jack Mendoza M.D. [id number] CBC WITH AUTO DIFFERENTIALon 02-21-2025 AUTO NRBC 0.0 % [facility] Comment on above: Performed By: #### L [id number] #### LAB [address] [place] [address] Jack Mendoza M.D. [id number] AUTO NRBC ABS COUNT 0.00 K/mcL Normal 0.00-0.00 [facility] Comment on above: Performed By: #### L [id number] #### LAB [address] [place] [address] Jack Mendoza M.D. [id number] BASOPHILS ABSOLUTE COUNT 0.01 K/mcL Normal 0.00-0.30 [facility] Comment on above: Performed By: #### L [id number] #### LAB [address] [place] [address] Jack Mendoza M.D. [id number] Basophils/100 WBC (Bld) 0.3 % [facility] Comment on above: Performed By: #### L [id number] #### LAB [address] [place] [address] Jack Mendoza M.D. [id number] Eosinophils (Bld) [#/Vol] 0.09 10*3/uL Normal 0.00-0.50 [facility] Comment on above: Performed By: #### L [id number] #### LAB [address] [place] [address] Jack Mendoza M.D. [id number] Eosinophils/100 WBC (Bld) 2.9 % [facility] Comment on above: Performed By: #### L [id number] #### LAB [address] [address] Jack Mendoza M.D. [id number] Erythrocyte distribution width (RBC) [Ratio] 19.2 % High 11.6-14.8 [facility] Comment on above: Performed By: #### L [id number] #### LAB [address] [address] Jack Mendoza M.D. [id number] Hematocrit (Bld) [Volume fraction] 32.1 % Low 41.0-53.0 [facility] Comment on above: Performed By: #### L [id number] #### LAB [address] [address] Jack Mendoza M.D. [id number] Hemoglobin (Bld) [Mass/Vol] 9.8 g/dL Low 13.5-17.5 [facility] Comment on above: Performed By: #### L [id number] #### LAB [address] [address] Jack Mendoza M.D. [id number] IG ABSOLUTE 0.01 K/mcL Normal 0.00-0.30 [facility] Comment on above: Performed By: #### L [id number] #### LAB [address] [address] Jack Mendoza M.D. [id number] IG PERCENT 0.30 % Normal [facility] Comment on above: Result Comment: The IG parameter is the percentage of metamyelocytes, myelocytes and promyelocytes. An immature granulocyte count (IG) of 1% or more suggests the possibility of infection, an IG count of 3% is very likely related to an infection. Performed By: #### L [id number] #### LAB [address] [place] [address] Jack Mendoza M.D. [id number] Lymphocytes (Bld) [#/Vol] 0.78 10*3/uL Low 0.90-4.00 [facility] Comment on above: Performed By: #### L [id number] ####[facility] LAB [address] [address] Jack Mendoza M.D. [id number] Lymphocytes/100 WBC (Bld) 25.3 % Normal [facility] Comment on above: Performed By: #### L [id number] #### LAB [address] [address] Jack Mendoza M.D. [id number] MCH (RBC) [Entitic mass] 20.7 pg Low 26.0-34.0 [facility] Comment on above: Performed By: #### L [id number] #### LAB [address] [address] Jack Mendoza M.D. [id number] MCV (RBC) [Entitic vol] 67.9 fL Low 80.0-100.0 [facility] Comment on above: Performed By: #### L [id number] #### LAB [address] [address] Jack Mendoza M.D. [id number] MEAN CORPUSCULAR HEMOGLOBIN CONC 30.5 g/dL Low 31.0-37.0 [facility] Comment on above: Performed By: #### L [id number] #### LAB [address] [address] Jack Mendoza M.D. [id number] Monocytes (Bld) [#/Vol] 0.35 10*3/uL Normal 0.30-0.90 [facility] Comment on above: Performed By: #### L [id number] #### LAB [address] [address] Jack Mendoza M.D. [id number] Monocytes/100 WBC (Bld) 11.4 % Normal [facility] Comment on above: Performed By: #### L [id number] #### LAB [address] [address] Jack Mendoza M.D. [id number] NEUTROPHILS ABSOLUTE COUNT 1.84 K/mcL Normal 1.70-7.00 [facility] Comment on above: Performed By: #### L [id number] #### LAB [address] [address] Jack Mendoza M.D. [id number] Neutrophils/100 WBC (Bld) 59.8 % [facility] Comment on above: Result Comment: Tiffany pheral smear reviewed manually Performed By: #### L [id number] #### LAB [address] [address] Jack Mendoza M.D. [id number] Platelets (Bld) [#/Vol] 111 10*3/uL Low 150-400 [facility] Comment on above: Performed By: #### L [id number] #### LAB [address] [address] Jack Mendoza M.D. [id number] RBC (Bld) [#/Vol] 4.73 10*6/uL Normal 4.50-5.90 [facility] Comment on above: Performed By: #### L [id number] #### LAB [address] [address] Jack Mendoza M.D. [id number] WBC (Bld) [#/Vol] 3.08 10*3/uL Low 4.50-11.00 [facility] Comment on above: Performed By: #### L [id number] #### LAB [address] [address] Jack Mendoza M.D. [id number] Disch [place] 02-21-2025 Disch [facility] MAGNESIUM LEVELon 02-21-2025 Magnesium [Mass/Vol] 1.8 mg/dL Normal 1.6-2.4 [facility] Comment on above: Performed By: #### 4 6109 #### LAB [address] [address] Jack Mendoza M.D. [id number] MORPHOLOGYon 02-21-2025 OVAL SCAN Few [facility] Comment on above: Performed By: #### L [id number] #### LAB [address] [address] Jack Mendoza M.D. [id number] PLATELET ESTIMATE Decreased Abnormal Normal [facility] Comment on above: Performed By: #### L [id number] ####[facility] LAB [address] [address] Jack Mendoza M.D. [id number] POLY SCAN Few Normal [facility] Comment on above: Performed By: #### L [id number] ####[facility] LAB [address] [address] Jack Mendoza M.D. [id number] RBC MORPH SCAN See Comment Normal [facility] Comment on above: Result Comment: RBC Indices confirmed with manual peripheral smear review. Performed By: #### L [id number] ####[facility] LAB [address] [address] Jack Mendoza M.D. [id number] [employer] CELL SCAN Few Normal [facility] Comment on above: Performed By: #### L [id number] ####[facility] LAB [address] [address] Jack Mendoza M.D. [id number] CONSULTon 02-19-2025 CONSULT Normal [facility] XR MANDIBLE LESS THAN 4 VIEW S (PANOREX)on 02-19-2025 XR MANDIBLE LESS THAN 4 VIEWS (PANOREX) [facility] Comment on above: Order Comment: Injur y/Trauma or Illness?:Illness/OtherHow long have you had these symptoms (acute/chronic)?:AcuteReason for exam?:Multiple dental caries and possible abscessHistory of cancer?:uSurgeries, chemotherapy, or radiation?:uType of Exam?:InitialAdditional signs and symptoms?:Multiple dental caries and possible abscess BASIC METABOLIC PANELon 3 Anion gap [Moles/Vol] 12 mmol/L Normal - [facility] Comment on above: Order Comment: [facility] has implemented the eGFR calculation approach that does not have a coefficient for race that conforms to the NKF-ASN Task Force Recommendations. Performed By: #### 4 6124 ####[facility] LAB [address] [address] Jack Mendoza M.D. [id number] Calcium [Mass/Vol] 8.9 mg/dL Normal 8.4-10.2 [facility] Comment on above: Order Comment: [facility] has implemented the eGFR calculation approach that does not have a coefficient for race that conforms to the NKF-ASN Task Force Recommendations. Performed By: #### 4 6124 #### LAB [address] [address] Jack Mendoza M.D. [id number] Chloride [Moles/Vol] 106 mmol/L Normal 98-108 [facility] Comment on above: Order Comment: [facility] has implemented the eGFR calculation approach that does not have a coefficient for race that conforms to the NKF-ASN Task Force Recommendations. Performed By: #### 4 6124 #### LAB [address] [address] Jack Mendoza M.D. [id number] Creatinine [Mass/Vol] 0.77 mg/dL Normal 0.50-1.30 [facility] Comment on above: Order Comment: [facility] has implemented the eGFR calculation approach that does not have a coefficient for race that conforms to the NKF-ASN Task Force Recommendations. Performed By: #### 4 6124 #### LAB [address] [address] Jack Mendoza M.D. [id number] EGFR 104 mL/min/1.73 m2 Normal >=60 [facility] Comment on above: Order Comment: [facility] has implemented the eGFR calculation approach that does not have a coefficient for race that conforms to the NKF-ASN Task Force Recommendations. Result Comment: Ashley mated GFR was calculated using the 2020 CKD-EPI creatinine equation. Performed By: #### 4 6124 #### LAB [address] [address] Jack Mendoza M.D. [id number] Glucose [Mass/Vol] 95 mg/dL Normal 65-99 [facility] Comment on above: Order Comment: [facility] has implemented the eGFR calculation approach that does not have a coefficient for race that conforms to the NKF-ASN Task Force Recommendations. Performed By: #### 4 6124 #### LAB [address] [address] Jack Mendoza M.D. [id number] HCO3 (Bld) [Moles/Vol] 25 mmol/L Normal 21-32 [facility] Comment on above: Order Comment: [facility] has implemented the eGFR calculation approach that does not have a coefficient for race that conforms to the NKF-ASN Task Force Recommendations. Performed By: #### 4 6124 #### LAB [address] [address] Jack Mendoza M.D. [id number] Potassium [Moles/Vol] 3.9 mmol/L Normal 3.5-5.1 [facility] Comment on above: Order Comment: [facility] has implemented the eGFR calculation approach that does not have a coefficient for race that conforms to the NKF-ASN Task Force Recommendations. Performed By: #### 4 6124 #### LAB [address] [address] Jack Mendoza M.D. [id number] Sodium [Moles/Vol] 139 mmol/L Normal 135-145 [facility] Comment on above: Order Comment: [facility] has implemented the eGFR calculation approach that does not have a coefficient for race that conforms to the NKF-ASN Task Force Recommendations. Performed By: #### 4 6124 #### LAB [address] [address] Jack Mendoza M.D. [id number] Urea nitrogen [Mass/Vol] 10 mg/dL Normal 8-25 [facility] Comment on above: Order Comment: [facility] has implemented the eGFR calculation approach that does not have a coefficient for race that conforms to the NKF-ASN Task Force Recommendations. Performed By: #### 4 6124 #### LAB [address] [address] Jack Mendoza M.D. [id number] Urea nitrogen/Creatinine [Mass ratio] 13.0 mg/mg Normal 10.0-20.0 [facility] Comment on above: Order Comment: [facility] has implemented the eGFR calculation approach that does not have a coefficient for race that conforms to the NKF-ASN Task Force Recommendations. Performed By: #### 4 6124 #### LAB [address] [address] Jack Mendoza M.D. [id number] CBC WITH AUTO DIFFERENTIALon 02-18-2025 AUTO NRBC 0.0 % [facility] Comment on above: Performed By: #### L [id number] ####[facility] [address] [address] Jack Mendoza M.D. [id number] AUTO NRBC ABS COUNT 0.00 K/mcL Normal 0.00-0.00 [facility] Comment on above: Performed By: #### L [id number] #### LAB [address] [place] [address] Jack Mendoza M.D. [id number] BASOPHILS ABSOLUTE COUNT 0.00 K/mcL Normal 0.00-0.30 [facility] Comment on above: Performed By: #### L [id number] #### LAB [address] [place] [address] Jack Mendoza M.D. [id number] Basophils/100 WBC (Bld) 0.0 % [facility] Comment on above: Performed By: #### L [id number] #### LAB [address] [place] [address] Jack Mendoza M.D. [id number] Eosinophils (Bld) [#/Vol] 0.09 10*3/uL Normal 0.00-0.50 [facility] Comment on above: Performed By: #### L [id number] #### LAB [address] [place] [address] Jack Mendoza M.D. [id number] Eosinophils/100 WBC (Bld) 3.4 % [facility] Comment on above: Performed By: #### L [id number] #### LAB [address] [place] [address] Jack Mendoza M.D. [id number] Erythrocyte distribution width (RBC) [Ratio] 19.2 % High 11.6-14.8 [facility] Comment on above: Performed By: #### L [id number] #### LAB [address] [address] Jack Mendoza M.D. [id number] Hematocrit (Bld) [Volume fraction] 32.4 % Low 41.0-53.0 [facility] Comment on above: Performed By: #### L [id number] #### LAB [address] [address] Jack Mendoza M.D. [id number] Hemoglobin (Bld) [Mass/Vol] 9.9 g/dL Low 13.5-17.5 [facility] Comment on above: Performed By: #### L [id number] #### LAB [address] [address] Jack Mendoza M.D. [id number] IG ABSOLUTE 0.01 K/mcL Normal 0.00-0.30 [facility] Comment on above: Performed By: #### L [id number] #### LAB [address] [address] Jack Mendoza M.D. [id number] IG PERCENT 0.40 % Normal [facility] Comment on above: Result Comment: The IG parameter is the percentage of metamyelocytes, myelocytes and promyelocytes. An immature granulocyte count (IG) of 1% or more suggests the possibility of infection, an IG count of 3% is very likely related to an infection. Performed By: #### L [id number] #### LAB [address] [address] Jack Mendoza M.D. [id number] Lymphocytes (Bld) [#/Vol] 0.67 10*3/uL Low 0.90-4.00 [facility] Comment on above: Performed By: #### L [id number] #### LAB [address] [place] [address] Jack Mendoza M.D. [id number] Lymphocytes/100 WBC (Bld) 25.5 % Normal [facility] Comment on above: Performed By: #### L [id number] #### LAB [address] [address] Jack Mendoza M.D. [id number] MCH (RBC) [Entitic mass] 20.6 pg Low 26.0-34.0 [facility] Comment on above: Performed By: #### L [id number] #### LAB [address] [address] Jack Mendoza M.D. [id number] MCV (RBC) [Entitic vol] 67.4 fL Low 80.0-100.0 [facility] Comment on above: Performed By: #### L [id number] #### LAB [address] [address] Jack Mendoza M.D. [id number] MEAN CORPUSCULAR HEMOGLOBIN CONC 30.6 g/dL Low 31.0-37.0 [facility] Comment on above: Performed By: #### L [id number] #### LAB [address] [address] Jack Mendoza M.D. [id number] Monocytes (Bld) [#/Vol] 0.21 10*3/uL Low 0.30-0.90 [facility] Comment on above: Performed By: #### L [id number] #### LAB [address] [place] [address] Jack Mendoza M.D. [id number] Monocytes/100 WBC (Bld) 8.0 % Normal [facility] Comment on above: Performed By: #### L [id number] #### LAB [address] [place] [address] Jack Mendoza M.D. [id number] NEUTROPHILS ABSOLUTE COUNT 1.65 K/mcL Low 1.70-7.00 [facility] Comment on above: Performed By: #### L [id number] #### LAB [address] [place] [address] Jack Mendoza M.D. [id number] Neutrophils/100 WBC (Bld) 62.7 % Normal [facility] Comment on above: Performed By: #### L [id number] ####[facility] [address] [address] Jack Mendoza M.D. [id number] Platelets (Bld) [#/Vol] 82 10*3/uL Low 150-400 [facility] Comment on above: Performed By: #### L [id number] #### LAB [address] [address] Jack Mendoza M.D. [id number] RBC (Bld) [#/Vol] 4.81 10*6/uL Normal 4.50-5.90 [facility] Comment on above: Performed By: #### L [id number] ####[facility] [address] [address] Jack Mendoza M.D. [id number] WBC (Bld) [#/Vol] 2.63 10*3/uL Low 4.50-11.00 [facility] Comment on above: Performed By: #### L [id number] ####[facility] [address] [address] Jack Mendoza M.D. [id number] CONSULTon 02-18-2025 CONSULT Normal [facility] MAGNESIUM LEVELon 02-18-2025 Magnesium [Mass/Vol] 1.6 mg/dL Normal 1.6-2.4 [facility] Comment on above: Performed By: #### 4 6109 ####[facility] [address] [address] Jack Mendoza M.D. [id number] [facility] Glucose [Mass/Vol] 102 mg/dL High 65-99 [facility] Comment on above: Performed By: #### 4 6932 ####[facility] [address] [address] Jack Mendoza M.D. [id number] BASIC METABOLIC PANELon 01-21 Anion gap [Moles/Vol] 14 mmol/L Normal 10-20 [facility] Comment on above: Order Comment: [facility] has implemented the eGFR calculation approach that does not have a coefficient for race that conforms to the NKF-ASN Task Force Recommendations. Performed By: #### 4 6124 #### LAB [address] [place], [place] [address] Jack Mendoza M.D. [id number] Calcium [Mass/Vol] 8.5 mg/dL Normal 8.4-10.2 [facility] Comment on above: Order Comment: [facility] has implemented the eGFR calculation approach that does not have a coefficient for race that conforms to the NKF-ASN Task Force Recommendations. Performed By: #### 4 6124 #### LAB [address] [address] Jack Mendoza M.D. [id number] Chloride [Moles/Vol] 105 mmol/L Normal 98-108 [facility] Comment on above: Order Comment: [facility] has implemented the eGFR calculation approach that does not have a coefficient for race that conforms to the NKF-ASN Task Force Recommendations. Performed By: #### 4 6124 #### LAB [address] [place] [id number] Jack Mendoza M.D. [id number] Creatinine [Mass/Vol] 0.93 mg/dL Normal 0.50-1.30 [facility] Comment on above: Order Comment: [facility] has implemented the eGFR calculation approach that does not have a coefficient for race that conforms to the NKF-ASN Task Force Recommendations. Performed By: #### 4 6162 #### LAB [address] [place], [place] [address] Jack Mendoza M.D. [id number] EGFR 95 mL/min/1.73 m2 Normal >=60 [facility] Comment on above: Order Comment: [facility] has implemented the eGFR calculation approach that does not have a coefficient for race that conforms to the NKF-ASN Task Force Recommendations. Result Comment: Ashley mated GFR was calculated using the 2020 CKD-EPI creatinine equation. Performed By: #### 4 6124 ####[facility] [address] [address] Jack Mendoza M.D. [id number] Glucose [Mass/Vol] 131 mg/dL High 65-99 [facility] Comment on above: Order Comment: [facility] has implemented the eGFR calculation approach that does not have a coefficient for race that conforms to the NKF-ASN Task Force Recommendations. Performed By: #### 4 6124 #### LAB [address] [address] Jack Mendoza M.D. [id number] HCO3 (Bld) [Moles/Vol] 25 mmol/L Normal 21-32 [facility] Comment on above: Order Comment: [facility] has implemented the eGFR calculation approach that does not have a coefficient for race that conforms to the NKF-ASN Task Force Recommendations. Performed By: #### 4 6124 #### LAB [address] [address] Jack Mendoza M.D. [id number] Potassium [Moles/Vol] 3.8 mmol/L Normal 3.5-5.1 [facility] Comment on above: Order Comment: [facility] has implemented the eGFR calculation approach that does not have a coefficient for race that conforms to the NKF-ASN Task Force Recommendations. Performed By: #### 4 6124 #### LAB [address] [address] Jack Mendoza M.D. [id number] Sodium [Moles/Vol] 140 mmol/L Normal 135-145 [facility] Comment on above: Order Comment: [facility] has implemented the eGFR calculation approach that does not have a coefficient for race that conforms to the NKF-ASN Task Force Recommendations. Performed By: #### 4 6124 ####[facility] [address] [address] Jack Mendoza M.D. [id number] Urea nitrogen [Mass/Vol] 14 mg/dL Normal 8-25 [facility] Comment on above: Order Comment: [facility] has implemented the eGFR calculation approach that does not have a coefficient for race that conforms to the NKF-ASN Task Force Recommendations. Performed By: #### 4 6124 #### LAB [address] [place] [address] Jack Mendoza M.D. [id number] Urea nitrogen/Creatinine [Mass ratio] 15.1 mg/mg Normal 10.0-20.0 [facility] Comment on above: Order Comment: [facility] has implemented the eGFR calculation approach that does not have a coefficient for race that conforms to the NKF-ASN Task Force Recommendations. Performed By: #### 4 6124 #### LAB [address] [address] Jack Mendoza M.D. [id number] CBC WITH AUTO DIFFERENTIALon 02-17-2025 AUTO NRBC 0.0 % Normal [facility] Comment on above: Performed By: #### L [id number] ####[facility] [address] [address] Jack Mendoza M.D. [id number] AUTO NRBC ABS COUNT 0.00 K/mcL Normal 0.00-0.00 [facility] Comment on above: Performed By: #### L [id number] ####[facility] [address] [address] Jack Mendoza M.D. [id number] Erythrocyte distribution width (RBC) [Ratio] 19.2 % High 11.6-14.8 [facility] Comment on above: Performed By: #### L [id number] ####[facility] [address] [address] Jack Mendoza M.D. [id number] Hematocrit (Bld) [Volume fraction] 33.2 % Low 41.0-53.0 [facility] Comment on above: Performed By: #### L [id number] ####[facility] [address] [address] Jack Mendoza M.D. [id number] Hemoglobin (Bld) [Mass/Vol] 10.1 g/dL Low 13.5-17.5 [facility] Comment on above: Performed By: #### L [id number] #### LAB [address] [address] Jack Mendoza M.D. [id number] MCH (RBC) [Entitic mass] 20.5 pg Low 26.0-34.0 [facility] Comment on above: Performed By: #### L [id number] #### LAB [address] [place] [address] Jack Mendoza M.D. [id number] MCV (RBC) [Entitic vol] 67.5 fL Low 80.0-100.0 [facility] Comment on above: Performed By: #### L [id number] #### LAB [address] [place] [address] Jack Mendoza M.D. [id number] MEAN CORPUSCULAR HEMOGLOBIN CONC 30.4 g/dL Low 31.0-37.0 [facility] Comment on above: Performed By: #### L [id number] #### LAB [address] [address] Jack Mendoza M.D. [id number] Platelet mean volume (Bld) [Entitic vol] 10.0 fL Normal 9.4-12.4 [facility] Comment on above: Performed By: #### L [id number] #### LAB [address] [address] Jack Mendoza M.D. [id number] Platelets (Bld) [#/Vol] 82 10*3/uL Low 150-400 [facility] Comment on above: Performed By: #### L [id number] ####[facility] [address] [address] Jack Mendoza M.D. [id number] RBC (Bld) [#/Vol] 4.92 10*6/uL Normal 4.50-5.90 [facility] Comment on above: Performed By: #### L [id number] ####[facility] [address] [place] [address] Jack Mendoza M.D. [id number] WBC (Bld) [#/Vol] 2.50 10*3/uL Low 4.50-11.00 [facility] Comment on above: Performed By: #### L [id number] #### LAB [address] [address] Jack Mendoza M.D. [id number] CONSULTon 02-17-2025 CONSULT Normal [facility] CRP, INFLAMMATIONon 02-18-20 25 CRP [Mass/Vol] 23.7 mg/L High 0.0-10.0 [facility] Comment on above: Performed By: #### 4 5334 #### LAB [address] [place] [address] Jack Mendoza M.D. [id number] MAGNESIUM LEVELon 02-17-2025 Magnesium [Mass/Vol] 1.6 mg/dL Normal 1.6-2.4 [facility] Comment on above: Performed By: #### 4 6109 #### LAB [address] [place] [address] Jack Mendoza M.D. [id number] MANUAL DIFFERENTIALon 2024 BASOPHILS - ABS (DIFF) 0.00 K/mcL Normal 0.00-0.30 [facility] Comment on above: Performed By: #### 4 5456 #### LAB [address] [place] [address] Jack Mendoza M.D. [id number] BASOPHILS - REL (DIFF) 0.0 % Normal [facility] Comment on above: Performed By: #### 4 5456 #### LAB [address] [place] [address] Jack Mendoza M.D. [id number] EOSINOPHILS - ABS (DIFF) 0.08 K/mcL Normal 0.00-0.50 [facility] Comment on above: Performed By: #### 4 5456 #### LAB [address] [place] [address] Jack Mendoza M.D. [id number] EOSINOPHILS - REL (DIFF) 3.0 % Normal [facility] Comment on above: Performed By: #### 4 5456 #### LAB [address] [place] [address] Jack Mendoza M.D. [id number] LYMPHOCYTES - ABS (DIFF) 0.70 K/mcL Low 0.90-4.00 [facility] Comment on above: Performed By: #### 4 5456 #### LAB [address] [place] [address] Jack Mendoza M.D. [id number] LYMPHOCYTES - REL (DIFF) 28.0 % [facility] Comment on above: Performed By: #### 4 5456 #### LAB [address] [place] [address] Jack Mendoza M.D. [id number] MONOCYTES - ABS (DIFF) 0.10 K/mcL Low 0.30-0.90 [facility] Comment on above: Performed By: #### 4 5456 #### LAB [address] [address] Jack Mendoza M.D. [id number] MONOCYTES - REL (DIFF) 4.0 % [facility] Comment on above: Performed By: #### 4 5456 #### LAB [address] [place] [address] Jack Mendoza M.D. [id number] NEUTROPHILS - ABS (DIFF) 1.63 K/mcL Low 1.70-7.00 [facility] Comment on above: Performed By: #### 4 5456 #### LAB [address] [address] Jack Mendoza M.D. [id number] NEUTROPHILS - REL (DIFF) 65.0 % [facility] Comment on above: Performed By: #### 4 5456 #### LAB [address] [address] Jack Mendoza M.D. [id number] MORPHOLOGYon 02-17-2025 OVAL SCAN Moderate [facility] Comment on above: Performed By: #### L [id number] #### LAB [address] [address] Jack Mendoza M.D. [id number] PLATELET ESTIMATE Decreased Abnormal Normal [facility] Comment on above: Performed By: #### L AB295 ####[facility] [address] [place] [address] Jack Mendoza M.D. [id number] POLY SCAN Few [facility] Comment on above: Performed By: #### L [id number] ####[facility] [address] [address] Jack Mendoza M.D. [id number] RBC MORPH SCAN See Comment [facility] Comment on above: Result Comment: RBC Indices confirmed with manual peripheral smear review. Performed By: #### L [id number] ####[facility] [address] [address] Jack Mendoza M.D. [id number] TARGET CELL SCAN Moderate Normal [facility] Comment on above: Performed By: #### L [id number] ####[facility] [address] [address] Jack Mendoza M.D. [id number] PROCALCITONINon 02-17-2025 PROCALCITONIN 0.16 ng/ml Normal <0.50 [facility] Comment on above: Order Comment: Resul ts <0.50 ng/ml represent a low risk of severe sepsis and/or septic shock. Performed By: #### 4 7652 ####[facility] [address] [place] [address] Venancio Richardson M.D. [id number] SEDIMENTATION RATEon 025 SEDIMENTATION RATE, ERYTHROCYTE 113 mm/hr High 0-20 [facility] Comment on above: Performed By: #### 4 6477 ####[facility] [address] [address] Jack Mendoza M.D. [id number] XR KNEE LEFT 2 VIEWS ([address])on 02-17-2025 XR KNEE LEFT 2 VIEWS (STANDARD) [facility] Comment on above: Order Comment: Injur y/Trauma or Illness?:Illness/OtherHow long have you had these symptoms (acute/chronic)?:ChronicReason for exam?:Left knee pain and swellingHistory of cancer?:uSurgeries, chemotherapy, or radiation?:uType of Exam?:InitialAdditional signs and symptoms?:NKI BASIC METABOLIC PANELon 01-21 Anion gap [Moles/Vol] 13 mmol/L Normal 10-20 [facility] Comment on above: Order Comment: [facility] has implemented the eGFR calculation approach that does not have a coefficient for race that conforms to the NKF-ASN Task Force Recommendations. Performed By: #### 4 6124 #### LAB [address] [place], [place] [address] Jack Mendoza M.D. [id number] Calcium [Mass/Vol] 8.7 mg/dL Normal 8.4-10.2 [facility] Comment on above: Order Comment: [facility] has implemented the eGFR calculation approach that does not have a coefficient for race that conforms to the NKF-ASN Task Force Recommendations. Performed By: #### 4 6124 #### LAB [address] [place] [address] Jack Mendoza M.D. [id number] Chloride [Moles/Vol] 105 mmol/L Normal 98-108 [facility] Comment on above: Order Comment: [facility] has implemented the eGFR calculation approach that does not have a coefficient for race that conforms to the NKF-ASN Task Force Recommendations. Performed By: #### 4 6124 #### LAB [address] [place] [address] Jack Mendoza M.D. [id number] Creatinine [Mass/Vol] 0.94 mg/dL Normal 0.50-1.30 [facility] Comment on above: Order Comment: [facility] has implemented the eGFR calculation approach that does not have a coefficient for race that conforms to the NKF-ASN Task Force Recommendations. Performed By: #### 4 6124 #### LAB [address] [address] Jack Mendoza M.D. [id number] EGFR 94 mL/min/1.73 m2 Normal >=60 [facility] Comment on above: Order Comment: [facility] has implemented the eGFR calculation approach that does not have a coefficient for race that conforms to the NKF-ASN Task Force Recommendations. Result Comment: Ashley mated GFR was calculated using the 2020 CKD-EPI creatinine equation. Performed By: #### 4 6146 #### LAB [address] [address] Jack Mendoza M.D. [id number] Glucose [Mass/Vol] 110 mg/dL High 65-99 [facility] Comment on above: Order Comment: [facility] has implemented the eGFR calculation approach that does not have a coefficient for race that conforms to the NKF-ASN Task Force Recommendations. Performed By: #### 4 6124 #### LAB [address] [place] [address] Jack Mendoza M.D. [id number] HCO3 (Bld) [Moles/Vol] 26 mmol/L Normal 21-32 [facility] Comment on above: Order Comment: [facility] has implemented the eGFR calculation approach that does not have a coefficient for race that conforms to the NKF-ASN Task Force Recommendations. Performed By: #### 4 6122 #### LAB [address] [place] [address] Jack Mendoza M.D. [id number] Potassium [Moles/Vol] 4.0 mmol/L Normal 3.5-5.1 [facility] Comment on above: Order Comment: [facility] has implemented the eGFR calculation approach that does not have a coefficient for race that conforms to the NKF-ASN Task Force Recommendations. Performed By: #### 4 6149 #### LAB [address] [place] [address] Jack Mendoza M.D. [id number] Sodium [Moles/Vol] 140 mmol/L Normal 135-145 [facility] Comment on above: Order Comment: [facility] has implemented the eGFR calculation approach that does not have a coefficient for race that conforms to the NKF-ASN Task Force Recommendations. Performed By: #### 4 6192 #### LAB [address] [place] [address] Jack Mendoza M.D. [id number] Urea nitrogen [Mass/Vol] 17 mg/dL Normal 8-25 [facility] Comment on above: Order Comment: [facility] has implemented the eGFR calculation approach that does not have a coefficient for race that conforms to the NKF-ASN Task Force Recommendations. Performed By: #### 4 6124 #### LAB [address] [place] [address] Jack Mendoza M.D. [id number] Urea nitrogen/Creatinine [Mass ratio] 18.1 mg/mg Normal 10.0-20.0 [facility] Comment on above: Order Comment: [facility] has implemented the eGFR calculation approach that does not have a coefficient for race that conforms to the NKF-ASN Task Force Recommendations. Performed By: #### 4 6124 #### LAB [address] [place] [address] Jack Mendoza M.D. [id number] CBC WITH AUTO DIFFERENTIALon 02-16-2025 AUTO NRBC 0.0 % [facility] Comment on above: Performed By: #### L [id number] ####[facility] [address] [address] Jack Mendoza M.D. [id number] AUTO NRBC ABS COUNT 0.00 K/mcL Normal 0.00-0.00 [facility] Comment on above: Performed By: #### L [id number] ####[facility] [address] [address] Jack Mendoza M.D. [id number] BASOPHILS ABSOLUTE COUNT 0.01 K/mcL Normal 0.00-0.30 [facility] Comment on above: Performed By: #### L [id number] ####[facility] [address] [address] Jack Mendoza M.D. [id number] Basophils/100 WBC (Bld) 0.4 % [facility] Comment on above: Performed By: #### L [id number] #### LAB [address] [place] [address] Jack Mendoza M.D. [id number] Eosinophils (Bld) [#/Vol] 0.08 10*3/uL Normal 0.00-0.50 [facility] Comment on above: Performed By: #### L [id number] #### LAB [address] [address] Jack Mendoza M.D. [id number] Eosinophils/100 WBC (Bld) 3.4 % Normal [facility] Comment on above: Performed By: #### L [id number] #### LAB [address] [address] Jack Mendoza M.D. [id number] Erythrocyte distribution width (RBC) [Ratio] 19.5 % High 11.6-14.8 [facility] Comment on above: Performed By: #### L [id number] #### LAB [address] [place] [address] Jack Mendoza M.D. [id number] Hematocrit (Bld) [Volume fraction] 34.2 % Low 41.0-53.0 [facility] Comment on above: Performed By: #### L [id number] #### LAB [address] [place] [address] Jack Mendoza M.D. [id number] Hemoglobin (Bld) [Mass/Vol] 10.3 g/dL Low 13.5-17.5 [facility] Comment on above: Performed By: #### L [id number] #### LAB [address] [place] [address] Jack Mendoza M.D. [id number] IG ABSOLUTE 0.01 K/mcL Normal 0.00-0.30 [facility] Comment on above: Performed By: #### L [id number] #### LAB [address] [place] [address] Jack Mendoza M.D. [id number] IG PERCENT 0.40 % [facility] Comment on above: Result Comment: The IG parameter is the percentage of metamyelocytes, myelocytes and promyelocytes. An immature granulocyte count (IG) of 1% or more suggests the possibility of infection, an IG count of 3% is very likely related to an infection. Performed By: #### L [id number] #### LAB [address] [address] Jack Mendoza M.D. [id number] Lymphocytes (Bld) [#/Vol] 0.80 10*3/uL Low 0.90-4.00 [facility] Comment on above: Performed By: #### L [id number] #### LAB [address] [address] Jack Mendoza M.D. [id number] Lymphocytes/100 WBC (Bld) 34.3 % Normal [facility] Comment on above: Performed By: #### L [id number] #### LAB [address] [address] Jack Mendoza M.D. [id number] MCH (RBC) [Entitic mass] 20.4 pg Low 26.0-34.0 [facility] Comment on above: Performed By: #### L [id number] #### LAB [address] [address] Jack Mendoza M.D. [id number] MCV (RBC) [Entitic vol] 67.7 fL Low 80.0-100.0 [facility] Comment on above: Performed By: #### L [id number] #### LAB [address] [address] Jack Mendoza M.D. [id number] MEAN CORPUSCULAR HEMOGLOBIN CONC 30.1 g/dL Low 31.0-37.0 [facility] Comment on above: Performed By: #### L [id number] #### LAB [address] [place] [address] Jack Mendoza M.D. [id number] Monocytes (Bld) [#/Vol] 0.18 10*3/uL Low 0.30-0.90 [facility] Comment on above: Performed By: #### L [id number] #### LAB [address] [address] Jack Mendoza M.D. [id number] Monocytes/100 WBC (Bld) 7.7 % Normal [facility] Comment on above: Performed By: #### L [id number] #### LAB [address] [address] Jack Mendoza M.D. [id number] NEUTROPHILS ABSOLUTE COUNT 1.25 K/mcL Low 1.70-7.00 [facility] Comment on above: Performed By: #### L [id number] #### LAB [address] [address] Jack Mendoza M.D. [id number] Neutrophils/100 WBC (Bld) 53.8 % Normal [facility] Comment on above: Performed By: #### L [id number] #### LAB [address] [address] Jack Mendoza M.D. [id number] Platelets (Bld) [#/Vol] 88 10*3/uL Low 150-400 [facility] Comment on above: Performed By: #### L [id number] #### LAB [address] [address] Jack Mendoza M.D. [id number] RBC (Bld) [#/Vol] 5.05 10*6/uL Normal 4.50-5.90 [facility] Comment on above: Performed By: #### L [id number] #### LAB [address] [address] Jack Mendoza M.D. [id number] WBC (Bld) [#/Vol] 2.33 10*3/uL Low 4.50-11.00 [facility] Comment on above: Performed By: #### L [id number] #### LAB [address] [address] Jack Mendoza M.D. [id number] MAGNESIUM LEVELon 02-16-2025 Magnesium [Mass/Vol] 1.9 mg/dL Normal 1.6-2.4 [facility] Comment on above: Performed By: #### 4 6109 #### LAB [address] [place], [place] [address] Jack Mendoza M.D. [id number] BASIC METABOLIC PANELon - Anion gap [Moles/Vol] 12 mmol/L Normal 10-20 [facility] Comment on above: Order Comment: [facility] has implemented the eGFR calculation approach that does not have a coefficient for race that conforms to the NKF-ASN Task Force Recommendations. Performed By: #### 4 6124 #### LAB [address] [place], [place] [address] Jack Mendoza M.D. [id number] Calcium [Mass/Vol] 8.7 mg/dL Normal 8.4-10.2 [facility] Comment on above: Order Comment: [facility] has implemented the eGFR calculation approach that does not have a coefficient for race that conforms to the NKF-ASN Task Force Recommendations. Performed By: #### 4 6124 #### LAB [address] [place], [place] [address] Jack Mendoza M.D. [id number] Chloride [Moles/Vol] 113 mmol/L High 98-108 [facility] Comment on above: Order Comment: [facility] has implemented the eGFR calculation approach that does not have a coefficient for race that conforms to the NKF-ASN Task Force Recommendations. Performed By: #### 4 6124 #### LAB [address] [place], [place] [address] Jack Mendoza M.D. [id number] Creatinine [Mass/Vol] 1.08 mg/dL Normal 0.50-1.30 [facility] Comment on above: Order Comment: [facility] has implemented the eGFR calculation approach that does not have a coefficient for race that conforms to the NKF-ASN Task Force Recommendations. Performed By: #### 4 6124 #### LAB [address] [place], [place] [address] Jack Mendoza M.D. [id number] EGFR 80 mL/min/1.73 m2 Normal >=60 [facility] Comment on above: Order Comment: [facility] has implemented the eGFR calculation approach that does not have a coefficient for race that conforms to the NKF-ASN Task Force Recommendations. Result Comment: Ashley mated GFR was calculated using the 2020 CKD-EPI creatinine equation. Performed By: #### 4 6124 #### LAB [address] [place] [address] Jack Mendoza M.D. [id number] Glucose [Mass/Vol] 117 mg/dL High 65-99 [facility] Comment on above: Order Comment: [facility] has implemented the eGFR calculation approach that does not have a coefficient for race that conforms to the NKF-ASN Task Force Recommendations. Performed By: #### 4 6124 #### LAB [address] [place] [address] Jack Mendoza M.D. [id number] HCO3 (Bld) [Moles/Vol] 28 mmol/L Normal 21-32 [facility] Comment on above: Order Comment: [facility] has implemented the eGFR calculation approach that does not have a coefficient for race that conforms to the NKF-ASN Task Force Recommendations. Performed By: #### 4 6124 #### LAB [address] [place] [address] Jack Mendoza M.D. [id number] Potassium [Moles/Vol] 4.4 mmol/L Normal 3.5-5.1 [facility] Comment on above: Order Comment: [facility] has implemented the eGFR calculation approach that does not have a coefficient for race that conforms to the NKF-ASN Task Force Recommendations. Performed By: #### 4 6124 #### LAB [address] [place] [address] Jack Mendoza M.D. [id number] Sodium [Moles/Vol] 149 mmol/L High 135-145 [facility] Comment on above: Order Comment: [facility] has implemented the eGFR calculation approach that does not have a coefficient for race that conforms to the NKF-ASN Task Force Recommendations. Performed By: #### 4 6124 #### LAB [address] [place] [address] Jack Mendoza M.D. [id number] Urea nitrogen [Mass/Vol] 20 mg/dL Normal 8-25 [facility] Comment on above: Order Comment: [facility] has implemented the eGFR calculation approach that does not have a coefficient for race that conforms to the NKF-ASN Task Force Recommendations. Performed By: #### 4 6124 #### LAB [address] [place] [address] Jack Mendoza M.D. [id number] Urea nitrogen/Creatinine [Mass ratio] 18.5 mg/mg Normal 10.0-20.0 [facility] Comment on above: Order Comment: [facility] has implemented the eGFR calculation approach that does not have a coefficient for race that conforms to the NKF-ASN Task Force Recommendations. Performed By: #### 4 6124 #### LAB [address] [place] [address] Jack Mendoza M.D. [id number] CBC WITH AUTO DIFFERENTIALon 02-15-2025 AUTO NRBC 0.0 % [facility] Comment on above: Performed By: #### L [id number] ####[facility] [address] [address] Jack Mendoza M.D. [id number] AUTO NRBC ABS COUNT 0.00 K/mcL Normal 0.00-0.00 [facility] [facility] Comment on above: Performed By: #### L [id number] ####[facility] [address] [address] Jack Mendoza M.D. [id number] BASOPHILS ABSOLUTE COUNT 0.01 K/mcL Normal 0.00-0.30 [facility] Comment on above: Performed By: #### L [id number] ####[facility] [address] [address] Jack Mendoza M.D. [id number] Basophils/100 WBC (Bld) 0.5 % [facility] Comment on above: Performed By: #### L [id number] #### LAB [address] [address] Jack Mendoza M.D. [id number] Eosinophils (Bld) [#/Vol] 0.08 10*3/uL Normal 0.00-0.50 [facility] Comment on above: Performed By: #### L [id number] #### LAB [address] [address] Jack Mendoza M.D. [id number] Eosinophils/100 WBC (Bld) 3.6 % Normal [facility] Comment on above: Performed By: #### L [id number] #### LAB [address] [address] Jack Mendoza M.D. [id number] Erythrocyte distribution width (RBC) [Ratio] 19.6 % High 11.6-14.8 [facility] Comment on above: Performed By: #### L [id number] #### LAB [address] [address] Jack eMndoza M.D. [id number] Hematocrit (Bld) [Volume fraction] 31.8 % Low 41.0-53.0 [facility] Comment on above: Performed By: #### L [id number] #### LAB [address] [address] Jack Mendoza M.D. [id number] Hemoglobin (Bld) [Mass/Vol] 9.5 g/dL Low 13.5-17.5 [facility] Comment on above: Performed By: #### L [id number] #### LAB [address] [place] [address] Jack Mendoza M.D. [id number] IG ABSOLUTE 0.02 K/mcL Normal 0.00-0.30 [facility] Comment on above: Performed By: #### L [id number] #### LAB [address] [place] [address] Jack Mendoza M.D. [id number] IG PERCENT 0.90 % Normal [facility] Comment on above: Result Comment: The IG parameter is the percentage of metamyelocytes, myelocytes and promyelocytes. An immature granulocyte count (IG) of 1% or more suggests the possibility of infection, an IG count of 3% is very likely related to an infection. Performed By: #### L [id number] #### LAB [address] [address] Jack Mendoza M.D. [id number] Lymphocytes (Bld) [#/Vol] 0.72 10*3/uL Low 0.90-4.00 [facility] Comment on above: Performed By: #### L [id number] #### LAB [address] [address] Jack Mendoza M.D. [id number] Lymphocytes/100 WBC (Bld) 32.6 % Normal [facility] Comment on above: Performed By: #### L [id number] #### LAB [address] [address] Jack Mendoza M.D. [id number] MCH (RBC) [Entitic mass] 20.2 pg Low 26.0-34.0 [facility] Comment on above: Performed By: #### L [id number] #### LAB [address] [place] [address] Jack Mendoza M.D. [id number] MCV (RBC) [Entitic vol] 67.5 fL Low 80.0-100.0 [facility] Comment on above: Performed By: #### L [id number] #### LAB [address] [place] [address] Jack Mendoza M.D. [id number] MEAN CORPUSCULAR HEMOGLOBIN CONC 29.9 g/dL Low 31.0-37.0 [facility] Comment on above: Performed By: #### L [id number] #### LAB [address] [place] [address] Jack Mendoza M.D. [id number] Monocytes (Bld) [#/Vol] 0.20 10*3/uL Low 0.30-0.90 [facility] Comment on above: Performed By: #### L [id number] #### LAB [address] [address] Jack Mendoza M.D. [id number] Monocytes/100 WBC (Bld) 9.0 % Normal [facility] Comment on above: Performed By: #### L [id number] #### LAB [address] [address] Jcak Mendoza M.D. [id number] NEUTROPHILS ABSOLUTE COUNT 1.18 K/mcL Low 1.70-7.00 [facility] Comment on above: Performed By: #### L [id number] #### LAB [address] [address] Jack Mendoza M.D. [id number] Neutrophils/100 WBC (Bld) 53.4 % Normal [facility] Comment on above: Performed By: #### L [id number] #### LAB [address] [address] Jack Mendoza M.D. [id number] Platelet mean volume (Bld) [Entitic vol] 9.8 fL Normal 9.4-12.4 [facility] Comment on above: Performed By: #### L [id number] #### LAB [address] [address] Jack Mendoza M.D. [id number] Platelets (Bld) [#/Vol] 88 10*3/uL Low 150-400 [facility] Comment on above: Performed By: #### L [id number] ####[facility] [address] [address] Jack Mendoza M.D. [id number] RBC (Bld) [#/Vol] 4.71 10*6/uL Normal 4.50-5.90 [facility] Comment on above: Performed By: #### L [id number] #### LAB [address] [address] Jack Mendoza M.D. [id number] WBC (Bld) [#/Vol] 2.21 10*3/uL Low 4.50-11.00 [facility] Comment on above: Performed By: #### L [id number] #### LAB [address] [address] Jack Mendoza M.D. [id number] CT KNEE RIGHT WITHOUT CONTRA STon 02-15-2025 CT KNEE RIGHT WITHOUT CONTRAST Normal [facility] Comment on above: Order Comment: Injur y/Trauma or Illness?:Illness/OtherHow long have you had these symptoms (acute/chronic)?:AcuteReason for exam?:R knee swellingType of Exam?:InitialAdditional signs and symptoms?:Per RN, pt was seen by doctor and told to come to ED for knee issues. Knee replacement done in 2019 MAGNESIUM LEVELon 02-15-2025 Magnesium [Mass/Vol] 1.8 mg/dL Normal 1.6-2.4 [facility] Comment on above: Performed By: #### 4 6109 #### LAB [address] [address] Jack Mendoza M.D. [id number] XR MODIFIED BARIUM SWALLOWon 02-15-2025 XR MODIFIED BARIUM SWALLOW Normal [facility] Comment on above: Order Comment: Injur y/Trauma or Illness?:Illness/OtherHow long have you had these symptoms (acute/chronic)?:AcuteReason for exam?:dysphagiaType of Exam?:InitialAdditional signs and symptoms?:nFluoro time in minutes:1.18Fluoro dose in mGy?:56.5 B12/FOLATEon 02-14-2025 Cobalamin (Vitamin B12) [Mass/Vol] 1010 pg/mL Normal 232-1245 [facility] Comment on above: Performed By: #### 4 6967 ####[facility] [address] [address] Jack Mendoza M.D. [id number] FOLATE 13.7 ng/mL Normal 3.1-17.5 [facility] Comment on above: Result Comment: Defi cient <2.2Borderline 2.2 - 3.0Excessive >17.5 Performed By: #### 4 6945 #### LAB [address] [address] Jack Mendoza M.D. [id number] BASIC METABOLIC PANELon 06-2 Anion gap [Moles/Vol] 13 mmol/L Normal 10-20 [facility] Comment on above: Order Comment: [facility] has implemented the eGFR calculation approach that does not have a coefficient for race that conforms to the NKF-ASN Task Force Recommendations. Performed By: #### 4 6124 #### LAB [address] [address] Jack Mendoza M.D. [id number] Calcium [Mass/Vol] 8.8 mg/dL Normal 8.4-10.2 [facility] Comment on above: Order Comment: [facility] has implemented the eGFR calculation approach that does not have a coefficient for race that conforms to the NKF-ASN Task Force Recommendations. Performed By: #### 4 6124 #### LAB [address] [place], [place] [address] Jack Mendoza M.D. [id number] Chloride [Moles/Vol] 111 mmol/L High 98-108 [facility] Comment on above: Order Comment: [facility] has implemented the eGFR calculation approach that does not have a coefficient for race that conforms to the NKF-ASN Task Force Recommendations. Performed By: #### 4 6124 #### LAB [address] [place], [place] [address] Jack Mendoza M.D. [id number] Creatinine [Mass/Vol] 1.16 mg/dL Normal 0.50-1.30 [facility] Comment on above: Order Comment: [facility] has implemented the eGFR calculation approach that does not have a coefficient for race that conforms to the NKF-ASN Task Force Recommendations. Performed By: #### 4 6124 #### LAB [address] [address] Jack Mendoza M.D. [id number] EGFR 73 mL/min/1.73 m2 Normal >=60 [facility] Comment on above: Order Comment: [facility] has implemented the eGFR calculation approach that does not have a coefficient for race that conforms to the NKF-ASN Task Force Recommendations. Result Comment: Ashley mated GFR was calculated using the 2020 CKD-EPI creatinine equation. Performed By: #### 4 6124 #### LAB [address] [address] Jack Mendoza M.D. [id number] Glucose [Mass/Vol] 125 mg/dL High 65-99 [facility] Comment on above: Order Comment: [facility] has implemented the eGFR calculation approach that does not have a coefficient for race that conforms to the NKF-ASN Task Force Recommendations. Performed By: #### 4 6124 #### LAB [address] [address] Jack Mendoza M.D. [id number] HCO3 (Bld) [Moles/Vol] 25 mmol/L Normal 21-32 [facility] Comment on above: Order Comment: [facility] has implemented the eGFR calculation approach that does not have a coefficient for race that conforms to the NKF-ASN Task Force Recommendations. Performed By: #### 4 6124 #### LAB [address] [address] Jack Mendoza M.D. [id number] Potassium [Moles/Vol] 4.6 mmol/L Normal 3.5-5.1 [facility] Comment on above: Order Comment: [facility] has implemented the eGFR calculation approach that does not have a coefficient for race that conforms to the NKF-ASN Task Force Recommendations. Performed By: #### 4 6124 #### LAB [address] [address] Jack Mendoza M.D. [id number] Sodium [Moles/Vol] 144 mmol/L Normal 135-145 [facility] Comment on above: Order Comment: [facility] has implemented the eGFR calculation approach that does not have a coefficient for race that conforms to the NKF-ASN Task Force Recommendations. Performed By: #### 4 6124 #### LAB [address] [address] Jack Mendoza M.D. [id number] Urea nitrogen [Mass/Vol] 23 mg/dL Normal 8-25 [facility] Comment on above: Order Comment: [facility] has implemented the eGFR calculation approach that does not have a coefficient for race that conforms to the NKF-ASN Task Force Recommendations. Performed By: #### 4 6124 #### LAB [address] [address] Jack Mendoza M.D. [id number] Urea nitrogen/Creatinine [Mass ratio] 19.8 mg/mg Normal 10.0-20.0 [facility] Comment on above: Order Comment: [facility] has implemented the eGFR calculation approach that does not have a coefficient for race that conforms to the NKF-ASN Task Force Recommendations. Performed By: #### 4 6124 #### LAB [address] [address] Jack Mendoza M.D. [id number] CBC WITH AUTO DIFFERENTIALon 02-14-2025 AUTO NRBC 0.0 % Normal [facility] Comment on above: Performed By: #### L [id number] ####[facility] [address] [address] Jack Mendoza M.D. [id number] AUTO NRBC ABS COUNT 0.00 K/mcL Normal 0.00-0.00 [facility] Comment on above: Performed By: #### L [id number] ####[facility] [address] [address] Jack Mendoza M.D. [id number] Erythrocyte distribution width (RBC) [Ratio] 19.9 % High 11.6-14.8 [facility] Comment on above: Performed By: #### L [id number] ####[facility] [address] [address] Jack Mendoza M.D. [id number] Hematocrit (Bld) [Volume fraction] 35.2 % Low 41.0-53.0 [facility] Comment on above: Performed By: #### L [id number] #### LAB [address] [address] Jack Mendoza M.D. [id number] Hemoglobin (Bld) [Mass/Vol] 10.9 g/dL Low 13.5-17.5 [facility] Comment on above: Performed By: #### L [id number] #### LAB [address] [address] Jack Mendoza M.D. [id number] MCH (RBC) [Entitic mass] 20.6 pg Low 26.0-34.0 [facility] Comment on above: Performed By: #### L [id number] ####[facility] [address] [address] Jack Mendoza M.D. [id number] MCV (RBC) [Entitic vol] 66.4 fL Low 80.0-100.0 [facility] Comment on above: Performed By: #### L [id number] #### LAB [address] [address] Jack Mendoza M.D. [id number] MEAN CORPUSCULAR HEMOGLOBIN CONC 31.0 g/dL Normal 31.0-37.0 [facility] Comment on above: Performed By: #### L [id number] #### LAB [address] [address] Jack Mendoza M.D. [id number] Platelet mean volume (Bld) [Entitic vol] 9.8 fL Normal 9.4-12.4 [facility] Comment on above: Performed By: #### L [id number] #### LAB [address] [address] Jack Mendoza M.D. [id number] Platelets (Bld) [#/Vol] 95 10*3/uL Low 150-400 [facility] Comment on above: Performed By: #### L [id number] ####[facility] [address] [address] Jack Mendoza M.D. [id number] RBC (Bld) [#/Vol] 5.30 10*6/uL Normal 4.50-5.90 [facility] Comment on above: Performed By: #### L [id number] #### LAB [address] [address] Jack Mendoza M.D. [id number] WBC (Bld) [#/Vol] 2.72 10*3/uL Low 4.50-11.00 [facility] Comment on above: Performed By: #### L [id number] #### LAB [address] [address] Jack Mendoza M.D. [id number] CONSULTon 02-14-2025 CONSULT Normal [facility] FIBRINOGENon 02-14-2025 FIBRINOGEN LEVEL 488 mg/dL High 224-483 [facility] Comment on above: Performed By: #### 4 5616 #### LAB [address] [address] Jack Mendoza M.D. [id number] MAGNESIUM LEVELon 02-14-2025 Magnesium [Mass/Vol] 2.0 mg/dL Normal 1.6-2.4 [facility] Comment on above: Performed By: #### 4 6109 #### LAB [address] [address] Jack Mendoza M.D. [id number] MANUAL DIFFERENTIALon 2024 BASOPHILS - ABS (DIFF) 0.00 K/mcL Normal 0.00-0.30 [facility] Comment on above: Performed By: #### 4 5456 #### LAB [address] [address] Jack Mendoza M.D. [id number] BASOPHILS - REL (DIFF) 0.0 % Normal [facility] Comment on above: Performed By: #### 4 5456 #### LAB [address] [address] Jack Mendoza M.D. [id number] EOSINOPHILS - ABS (DIFF) 0.05 K/mcL Normal 0.00-0.50 [facility] Comment on above: Performed By: #### 4 5456 #### LAB [address] [address] Jack Mendoza M.D. [id number] EOSINOPHILS - REL (DIFF) 2.0 % [facility] Comment on above: Performed By: #### 4 5456 #### LAB [address] [address] Jack Mendoza M.D. [id number] LYMPHOCYTES - ABS (DIFF) 0.76 K/mcL Low 0.90-4.00 [facility] Comment on above: Performed By: #### 4 5456 #### LAB [address] [address] Jack Mendoza M.D. [id number] LYMPHOCYTES - REL (DIFF) 28.0 % [facility] Comment on above: Performed By: #### 4 5456 #### LAB [address] [address] Jack Mendoza M.D. [id number] MONOCYTES - ABS (DIFF) 0.14 K/mcL Low 0.30-0.90 [facility] Comment on above: Performed By: #### 4 5456 #### LAB [address] [address] Jack Mendoza M.D. [id number] MONOCYTES - REL (DIFF) 5.0 % [facility] Comment on above: Performed By: #### 4 5456 #### LAB [address] [address] Jack Mendoza M.D. [id number] NEUTROPHILS - ABS (DIFF) 1.77 K/mcL Normal 1.70-7.00 [facility] Comment on above: Performed By: #### 4 5456 #### LAB [address] [address] Jack Mendoza M.D. [id number] NEUTROPHILS - REL (DIFF) 65.0 % [facility] Comment on above: Performed By: #### 4 5456 #### LAB [address] [address] Jack Mendoza M.D. [id number] MORPHOLOGYon 02-14-2025 OVAL SCAN Moderate [facility] Comment on above: Performed By: #### L [id number] #### LAB [address] [address] Jack Mendoza M.D. [id number] PLATELET ESTIMATE Decreased Abnormal Normal [facility] Comment on above: Performed By: #### L AB295 ####[facility] [address] [address] Jack Mendoza M.D. [id number] POLY SCAN Moderate [facility] Comment on above: Performed By: #### L AB295 ####[facility] [address] [address] Jack Mendoza M.D. [id number] RBC MORPH SCAN See Comment Normal [facility] Comment on above: Result Comment: RBC Indices confirmed with manual peripheral smear review. Performed By: #### L AB295 ####[facility] [address] [address] Jack Mendoza M.D. [id number] TARGET CELL SCAN Moderate Normal [facility] Comment on above: Performed By: #### L AB295 ####[facility] [address] [address] Jack Mendoza M.D. [id number] MR BRAIN WITHOUT CONTRASTon 02-14-2025 MR BRAIN WITHOUT CONTRAST [facility] Comment on above: Order Comment: Injur y/Trauma or Illness?:Illness/OtherHow long have you had these symptoms (acute/chronic)?:AcuteReason for exam?:ams, encephalopathy and agitationType of Exam?:InitialAdditional signs and symptoms?:. [facility]OC [facility] Glucose [Mass/Vol] 111 mg/dL [address] Comment on above: Performed By: #### 4 6932 ####[facility] [address] [address] Jack Mendoza M.D. [id number] Glucose [Mass/Vol] 126 mg/dL [address] Comment on above: Performed By: #### 4 6932 ####[facility] [address] [address] Jack Mendoza M.D. [id number] Glucose [Mass/Vol] 118 mg/dL High 65-99 [facility] Comment on above: Performed By: #### 4 6932 #### LAB [address] [place], [place] [address] Jack Mendoza M.D. [id number] Glucose [Mass/Vol] 122 mg/dL High 65-99 [facility] Comment on above: Performed By: #### 4 6932 #### LAB [address] [address] Jack Mendoza M.D. [id number] PT/INRon 02-14-2025 INR Coag (PPP) [Relative time] 1.2 {INR} High 0.8-1.1 [facility] Comment on above: Order Comment: Markin g the induction phase of oral anticoagulation, the INR may not reflect the anticoagulation status of the patient. Therapeutic ranges for INR's are:Most clinical situations: INR 2.0-3.0Mechanical Prosthetic Valve: INR 2.5-3.5Critical: INR >5.0 Performed By: #### 4 6391 #### LAB [address] [place], [place] [address] Jack Mendoza M.D. [id number] PT Coag (PPP) [Time] 15.1 s High 11.8-14.3 [facility] Comment on above: Order Comment: Durin g the induction phase of oral anticoagulation, the INR may not reflect the anticoagulation status of the patient. Therapeutic ranges for INR's are:Most clinical situations: INR 2.0-3.0Mechanical Prosthetic Valve: INR 2.5-3.5Critical: INR >5.0 Performed By: #### 4 6391 #### LAB [address] [place], [place] [address] Jack Mendoza M.D. [id number] BASIC METABOLIC PANELon 01-21 Anion gap [Moles/Vol] 13 mmol/L Normal 10-20 [facility] Comment on above: Order Comment: [facility] has implemented the eGFR calculation approach that does not have a coefficient for race that conforms to the NKF-ASN Task Force Recommendations. Performed By: #### 4 6124 #### LAB [address] [address] Jack Mendoza M.D. [id number] Calcium [Mass/Vol] 8.7 mg/dL Normal 8.4-10.2 [facility] Comment on above: Order Comment: [facility] has implemented the eGFR calculation approach that does not have a coefficient for race that conforms to the NKF-ASN Task Force Recommendations. Performed By: #### 4 6124 #### LAB [address] [address] Jack Mendoza M.D. [id number] Chloride [Moles/Vol] 110 mmol/L High 98-108 [facility] Comment on above: Order Comment: [facility] has implemented the eGFR calculation approach that does not have a coefficient for race that conforms to the NKF-ASN Task Force Recommendations. Performed By: #### 4 6124 #### LAB [address] [address] Jack Mendoza M.D. [id number] Creatinine [Mass/Vol] 1.41 mg/dL High 0.50-1.30 [facility] Comment on above: Order Comment: [facility] has implemented the eGFR calculation approach that does not have a coefficient for race that conforms to the NKF-ASN Task Force Recommendations. Performed By: #### 4 6124 #### LAB [address] [address] Jack Mendoza M.D. [id number] EGFR 58 mL/min/1.73 m2 Low >=60 [facility] Comment on above: Order Comment: [facility] has implemented the eGFR calculation approach that does not have a coefficient for race that conforms to the NKF-ASN Task Force Recommendations. Result Comment: Ashley mated GFR was calculated using the 2020 CKD-EPI creatinine equation. Performed By: #### 4 6124 #### LAB [address] [address] Jack Mendoza M.D. [id number] Glucose [Mass/Vol] 132 mg/dL High 65-99 [facility] Comment on above: Order Comment: [facility] has implemented the eGFR calculation approach that does not have a coefficient for race that conforms to the NKF-ASN Task Force Recommendations. Performed By: #### 4 6124 #### LAB [address] [address] Jack Mendoza M.D. [id number] HCO3 (Bld) [Moles/Vol] 25 mmol/L Normal 21-32 [facility] Comment on above: Order Comment: [facility] has implemented the eGFR calculation approach that does not have a coefficient for race that conforms to the NKF-ASN Task Force Recommendations. Performed By: #### 4 6124 #### LAB [address] [address] Jack Mendoza M.D. [id number] Potassium [Moles/Vol] 4.7 mmol/L Normal 3.5-5.1 [facility] Comment on above: Order Comment: [facility] has implemented the eGFR calculation approach that does not have a coefficient for race that conforms to the NKF-ASN Task Force Recommendations. Performed By: #### 4 6124 #### LAB [address] [address] Jack Mendoza M.D. [id number] Sodium [Moles/Vol] 143 mmol/L Normal 135-145 [facility] Comment on above: Order Comment: [facility] has implemented the eGFR calculation approach that does not have a coefficient for race that conforms to the NKF-ASN Task Force Recommendations. Performed By: #### 4 6124 ####[facility] [address] [address] Jack Mendoaz M.D. [id number] Urea nitrogen [Mass/Vol] 36 mg/dL High 8-25 [facility] Comment on above: Order Comment: [facility] has implemented the eGFR calculation approach that does not have a coefficient for race that conforms to the NKF-ASN Task Force Recommendations. Performed By: #### 4 6124 ####[facility] [address] [address] Jack Mendoza M.D. [id number] Urea nitrogen/Creatinine [Mass ratio] 25.5 mg/mg High 10.0-20.0 [facility] Comment on above: Order Comment: [facility] has implemented the eGFR calculation approach that does not have a coefficient for race that conforms to the NKF-ASN Task Force Recommendations. Performed By: #### 4 6124 #### LAB [address] [address] Jack Mendoza M.D. [id number] BLOOD CULTURE AEROBIC/ANAERO BICon 02-13-2025 BLOOD CULTURE AEROBIC/ANAEROBIC BLOOD CULTURE No Growth after 5 days [facility] Comment on above: Performed By: #### 4 4014 #### LAB [address] [address] Jack Mendoza M.D. [id number] BLOOD CULTURE AEROBIC/ANAEROBIC BLOOD CULTURE No Growth after 5 days [facility] Comment on above: Performed By: #### 4 4014 ####[facility] [address] [address] Jack Mendoza M.D. [id number] CBC WITH AUTO DIFFERENTIALon 02-13-2025 AUTO NRBC 0.0 % [facility] Comment on above: Performed By: #### L [id number] ####[facility] [address] [address] Jack Mendoza M.D. [id number] AUTO NRBC ABS COUNT 0.00 K/mcL Normal 0.00-0.00 [facility] Comment on above: Performed By: #### L [id number] ####[facility] [address] [address] Jack Mendoza M.D. [id number] BASOPHILS ABSOLUTE COUNT 0.02 K/mcL Normal 0.00-0.30 [facility] Comment on above: Performed By: #### L [id number] #### LAB [address] [address] Jack Mendoza M.D. [id number] Basophils/100 WBC (Bld) 0.5 % Normal [facility] Comment on above: Performed By: #### L [id number] #### LAB [address] [address] Jack Mendoza M.D. [id number] Eosinophils (Bld) [#/Vol] 0.12 10*3/uL Normal 0.00-0.50 [facility] Comment on above: Performed By: #### L [id number] #### LAB [address] [address] Jack Mendoza M.D. [id number] Eosinophils/100 WBC (Bld) 2.9 % Normal [facility] Comment on above: Performed By: #### L [id number] #### LAB [address] [address] Jack Mendoza M.D. [id number] Erythrocyte distribution width (RBC) [Ratio] 20.3 % High 11.6-14.8 [facility] Comment on above: Performed By: #### L [id number] #### LAB [address] [address] Jack Mendoza M.D. [id number] Hematocrit (Bld) [Volume fraction] 38.0 % Low 41.0-53.0 [facility] Comment on above: Performed By: #### L [id number] #### LAB [address] [place] [address] Jack Mendoza M.D. [id number] Hemoglobin (Bld) [Mass/Vol] 11.6 g/dL Low 13.5-17.5 [facility] Comment on above: Performed By: #### L [id number] #### LAB [address] [address] Jack Mendoza M.D. [id number] IG ABSOLUTE 0.01 K/mcL Normal 0.00-0.30 [facility] Comment on above: Performed By: #### L [id number] #### LAB [address] [place] [address] aJck Mendoza M.D. [id number] IG PERCENT 0.20 % Normal [facility] Comment on above: Result Comment: The IG parameter is the percentage of metamyelocytes, myelocytes and promyelocytes. An immature granulocyte count (IG) of 1% or more suggests the possibility of infection, an IG count of 3% is very likely related to an infection. Performed By: #### L [id number] #### LAB [address] [place] [address] Jack Mendoza M.D. [id number] Lymphocytes (Bld) [#/Vol] 1.05 10*3/uL Normal 0.90-4.00 [facility] Comment on above: Performed By: #### L [id number] #### LAB [address] [address] Jack Mendoza M.D. [id number] Lymphocytes/100 WBC (Bld) 25.6 % Normal [facility] Comment on above: Performed By: #### L [id number] #### LAB [address] [place] [address] Jack Mendoza M.D. [id number] MCH (RBC) [Entitic mass] 20.4 pg Low 26.0-34.0 [facility] Comment on above: Performed By: #### L [id number] #### LAB [address] [address] Jack Mendoza M.D. [id number] MCV (RBC) [Entitic vol] 66.7 fL Low 80.0-100.0 [facility] Comment on above: Performed By: #### L [id number] #### LAB [address] [place] [address] Jack Mendoza M.D. [id number] MEAN CORPUSCULAR HEMOGLOBIN CONC 30.5 g/dL Low 31.0-37.0 [facility] Comment on above: Performed By: #### L [id number] #### LAB [address] [place] [address] Jack Mendoza M.D. [id number] Monocytes (Bld) [#/Vol] 0.55 10*3/uL Normal 0.30-0.90 [facility] Comment on above: Performed By: #### L [id number] #### LAB [address] [address] Jack Mendoza M.D. [id number] Monocytes/100 WBC (Bld) 13.4 % Normal [facility] Comment on above: Performed By: #### L [id number] #### LAB [address] [address] Jack Mendoza M.D. [id number] NEUTROPHILS ABSOLUTE COUNT 2.35 K/mcL Normal 1.70-7.00 [facility] Comment on above: Performed By: #### L [id number] #### LAB [address] [address] Jack Mendoza M.D. [id number] Neutrophils/100 WBC (Bld) 57.4 % Normal [facility] Comment on above: Result Comment: Tiffany pheral smear reviewed manually Performed By: #### L [id number] #### LAB [address] [address] Jack Mendoza M.D. [id number] Platelets (Bld) [#/Vol] 123 10*3/uL Low 150-400 [facility] Comment on above: Performed By: #### L [id number] #### LAB [address] [place] [address] Jack Mendoza M.D. [id number] RBC (Bld) [#/Vol] 5.70 10*6/uL Normal 4.50-5.90 [facility] Comment on above: Performed By: #### L [id number] #### LAB [address] [place] [address] Jack Mendoza M.D. [id number] WBC (Bld) [#/Vol] 4.10 10*3/uL Low 4.50-11.00 [facility] Comment on above: Performed By: #### L [id number] #### LAB [address] [place] [address] Jack Mendoza M.D. [id number] MAGNESIUM LEVELon 02-13-2025 Magnesium [Mass/Vol] 1.9 mg/dL Normal 1.6-2.4 [facility] Comment on above: Performed By: #### 4 6109 ####[facility] LAB [address] [address] Jack Mendoza M.D. [id number] MORPHOLOGYon 02-13-2025 OVAL SCAN Moderate Normal [facility] Comment on above: Performed By: #### L [id number] ####[facility] LAB [address] [address] Jack Mendoza M.D. [id number] PLATELET ESTIMATE Decreased Abnormal Normal [facility] Comment on above: Performed By: #### L [id number] ####[facility] LAB [address] [address] Jack Mendoza M.D. [id number] POLY SCAN Few Normal [facility] Comment on above: Performed By: #### L [id number] ####[facility] LAB [address] [address] Jack Mendoza M.D. [id number] RBC MORPH SCAN See Comment Normal [facility] Comment on above: Result Comment: RBC Indices confirmed with manual peripheral smear review. Performed By: #### L [id number] ####[facility] LAB [address] [address] Jack Mendoza M.D. [id number] TARGET CELL SCAN Moderate Normal [facility] Comment on above: Performed By: #### L [id number] ####[facility] LAB [address] [address] Jack Mendoza M.D. [id number] POC GLUCOSE - [facility] 025 Glucose [Mass/Vol] 137 mg/dL High [address] [place] [address] Comment on above: Performed By: #### 4 6932 ####[facility] LAB [address] [address] Jack Mendoza M.D. [id number] Glucose [Mass/Vol] 160 mg/dL High [address] [place] [address] Comment on above: Performed By: #### 4 6932 #### LAB [address] [address] Jack Mendoza M.D. [id number] Glucose [Mass/Vol] 129 mg/dL High [address] [place] [address] Comment on above: Performed By: #### 4 6932 ####[facility] LAB [address] [address] Jack Mendoza M.D. [id number] Glucose [Mass/Vol] 111 mg/dL High [address] [place] [address] Comment on above: Performed By: #### 4 6932 ####[facility] LAB [address] [address] Jack Mendoza M.D. [id number] Glucose [Mass/Vol] 132 mg/dL High [address] [place] [address] Comment on above: Performed By: #### 4 6932 #### LAB [address] [address] Jack Mendoza M.D. [id number] SPUTUM AEROBIC CULTUREon SPUTUM AEROBIC CULTURE RESPIRATORY CULTURE Normal Sobeida after 48 hrs GRAM STAIN RESULT Many WBC Few Epithelial Cells Moderate Mixed Sobeida Normal [facility] Comment on above: Performed By: #### 4 4046 ####[facility] [address] [address] Venancio Richardson M.D. [id number] XR CHEST PA/APon 02-13-2025 XR CHEST PA/AP [facility] Comment on above: Order Comment: Injur y/Trauma or Illness?:Illness/OtherHow long have you had these symptoms (acute/chronic)?:AcuteReason for exam?:respritoty failureHistory of cancer?:uSurgeries, chemotherapy, or radiation?:uType of Exam?:Subsequent/Follow-upAdditional signs and symptoms?:u AMMONIAon 02-12-2025 AMMONIA 32 micromol/L Normal 12-47 [facility] Comment on above: Performed By: #### 4 5060 #### LAB [address] [address] Jack Mendoza M.D. [id number] BASIC METABOLIC PANELon 06-2 Anion gap [Moles/Vol] 13 mmol/L Normal 10-20 [facility] Comment on above: Order Comment: [facility] has implemented the eGFR calculation approach that does not have a coefficient for race that conforms to the NKF-ASN Task Force Recommendations. Performed By: #### 4 6124 #### LAB [address] [address] Jack Mendoza M.D. [id number] Calcium [Mass/Vol] 8.3 mg/dL Low 8.4-10.2 [facility] Comment on above: Order Comment: [facility] has implemented the eGFR calculation approach that does not have a coefficient for race that conforms to the NKF-ASN Task Force Recommendations. Performed By: #### 4 6124 #### LAB [address] [address] Jack Mendoza M.D. [id number] Chloride [Moles/Vol] 108 mmol/L Normal 98-108 [facility] Comment on above: Order Comment: [facility] has implemented the eGFR calculation approach that does not have a coefficient for race that conforms to the NKF-ASN Task Force Recommendations. Performed By: #### 4 6124 #### LAB [address] [place], [place] [address] Jack Mendoza M.D. [id number] Creatinine [Mass/Vol] 2.43 mg/dL High 0.50-1.30 [facility] Comment on above: Order Comment: [facility] has implemented the eGFR calculation approach that does not have a coefficient for race that conforms to the NKF-ASN Task Force Recommendations. Performed By: #### 4 6124 #### LAB [address] [address] Jack Mendoza M.D. [id number] EGFR 30 mL/min/1.73 m2 Low >=60 [facility] Comment on above: Order Comment: [facility] has implemented the eGFR calculation approach that does not have a coefficient for race that conforms to the NKF-ASN Task Force Recommendations. Result Comment: Ashley mated GFR was calculated using the 2020 CKD-EPI creatinine equation. Performed By: #### 4 6180 #### LAB [address] [address] Jack Mendoza M.D. [id number] Glucose [Mass/Vol] 129 mg/dL High 65-99 [facility] Comment on above: Order Comment: [facility] has implemented the eGFR calculation approach that does not have a coefficient for race that conforms to the NKF-ASN Task Force Recommendations. Performed By: #### 4 6124 #### LAB [address] [address] Jack Mendoza M.D. [id number] HCO3 (Bld) [Moles/Vol] 23 mmol/L Normal 21-32 [facility] Comment on above: Order Comment: [facility] has implemented the eGFR calculation approach that does not have a coefficient for race that conforms to the NKF-ASN Task Force Recommendations. Performed By: #### 4 6124 #### LAB [address] [address] Jack Mendoza M.D. [id number] Potassium [Moles/Vol] 5.2 mmol/L High 3.5-5.1 [facility] Comment on above: Order Comment: [facility] has implemented the eGFR calculation approach that does not have a coefficient for race that conforms to the NKF-ASN Task Force Recommendations. Performed By: #### 4 6124 #### LAB [address] [address] Jack Mendoza M.D. [id number] Sodium [Moles/Vol] 139 mmol/L Normal 135-145 [facility] Comment on above: Order Comment: [facility] has implemented the eGFR calculation approach that does not have a coefficient for race that conforms to the NKF-ASN Task Force Recommendations. Performed By: #### 4 6124 #### LAB [address] [address] Jack Mendoza M.D. [id number] Urea nitrogen [Mass/Vol] 62 mg/dL High 8-25 [facility] Comment on above: Order Comment: [facility] has implemented the eGFR calculation approach that does not have a coefficient for race that conforms to the NKF-ASN Task Force Recommendations. Performed By: #### 4 6124 #### LAB [address] [place], [place] [address] Jack Mendoza M.D. [id number] Urea nitrogen/Creatinine [Mass ratio] 25.5 mg/mg High 10.0-20.0 [facility] Comment on above: Order Comment: [facility] has implemented the eGFR calculation approach that does not have a coefficient for race that conforms to the NKF-ASN Task Force Recommendations. Performed By: #### 4 6124 #### LAB [address] [address] Jack Mendoza M.D. [id number] Anion gap [Moles/Vol] 18 mmol/L Normal 10-20 [facility] Comment on above: Order Comment: [facility] has implemented the eGFR calculation approach that does not have a coefficient for race that conforms to the NKF-ASN Task Force Recommendations. Performed By: #### 4 6124 #### LAB [address] [address] Jack Mendoza M.D. [id number] Calcium [Mass/Vol] 8.4 mg/dL Normal 8.4-10.2 [facility] Comment on above: Order Comment: [facility] has implemented the eGFR calculation approach that does not have a coefficient for race that conforms to the NKF-ASN Task Force Recommendations. Performed By: #### 4 6124 #### LAB [address] [address] Jack Mendoza M.D. [id number] Chloride [Moles/Vol] 102 mmol/L Normal 98-108 [facility] Comment on above: Order Comment: [facility] has implemented the eGFR calculation approach that does not have a coefficient for race that conforms to the NKF-ASN Task Force Recommendations. Performed By: #### 4 6124 #### LAB [address] [address] Jack Mendoza M.D. [id number] Creatinine [Mass/Vol] 3.72 mg/dL High 0.50-1.30 [facility] Comment on above: Order Comment: [facility] has implemented the eGFR calculation approach that does not have a coefficient for race that conforms to the NKF-ASN Task Force Recommendations. Performed By: #### 4 6124 #### LAB [address] [address] Jack Mendoza M.D. [id number] EGFR 18 mL/min/1.73 m2 Low >=60 [facility] Comment on above: Order Comment: [facility] has implemented the eGFR calculation approach that does not have a coefficient for race that conforms to the NKF-ASN Task Force Recommendations. Result Comment: Ashley mated GFR was calculated using the 2020 CKD-EPI creatinine equation. Performed By: #### 4 6124 #### LAB [address] [address] Jack Mendoza M.D. [id number] Glucose [Mass/Vol] 126 mg/dL High 65-99 [facility] Comment on above: Order Comment: [facility] has implemented the eGFR calculation approach that does not have a coefficient for race that conforms to the NKF-ASN Task Force Recommendations. Performed By: #### 4 6124 #### LAB [address] [address] Jack Mendoza M.D. [id number] HCO3 (Bld) [Moles/Vol] 22 mmol/L Normal 21-32 [facility] Comment on above: Order Comment: [facility] has implemented the eGFR calculation approach that does not have a coefficient for race that conforms to the NKF-ASN Task Force Recommendations. Performed By: #### 4 6124 #### LAB [address] [address] Jack Mendoza M.D. [id number] Potassium [Moles/Vol] 5.6 mmol/L High 3.5-5.1 [facility] Comment on above: Order Comment: [facility] has implemented the eGFR calculation approach that does not have a coefficient for race that conforms to the NKF-ASN Task Force Recommendations. Performed By: #### 4 6124 #### LAB [address] [place], [place] [address] Jack Mendoza M.D. [id number] Sodium [Moles/Vol] 136 mmol/L Normal 135-145 [facility] Comment on above: Order Comment: [facility] has implemented the eGFR calculation approach that does not have a coefficient for race that conforms to the NKF-ASN Task Force Recommendations. Performed By: #### 4 6124 #### LAB [address] [address] Jack Mendoza M.D. [id number] Urea nitrogen [Mass/Vol] 81 mg/dL High 8-25 [facility] Comment on above: Order Comment: [facility] has implemented the eGFR calculation approach that does not have a coefficient for race that conforms to the NKF-ASN Task Force Recommendations. Performed By: #### 4 6124 #### LAB [address] [address] Jack Mendoza M.D. [id number] Urea nitrogen/Creatinine [Mass ratio] 21.8 mg/mg High 10.0-20.0 [facility] Comment on above: Order Comment: [facility] has implemented the eGFR calculation approach that does not have a coefficient for race that conforms to the NKF-ASN Task Force Recommendations. Performed By: #### 4 6124 #### LAB [address] [address] Jack Mendoza M.D. [id number] CBC WITH AUTO DIFFERENTIALon 02-12-2025 AUTO NRBC 0.0 % Normal [facility] Comment on above: Performed By: #### L [id number] #### LAB [address] [address] Jack Mendoza M.D. [id number] AUTO NRBC ABS COUNT 0.00 K/mcL Normal 0.00-0.00 [facility] Comment on above: Performed By: #### L [id number] #### LAB [address] [address] Jack Mendoza M.D. [id number] BASOPHILS ABSOLUTE COUNT 0.04 K/mcL Normal 0.00-0.30 [facility] Comment on above: Performed By: #### L [id number] #### LAB [address] [address] Jack Mendoza M.D. [id number] Basophils/100 WBC (Bld) 0.5 % Normal [facility] Comment on above: Performed By: #### L [id number] #### LAB [address] [address] Jack Mendoza M.D. [id number] Eosinophils (Bld) [#/Vol] 0.19 10*3/uL Normal 0.00-0.50 [facility] Comment on above: Performed By: #### L [id number] #### LAB [address] [address] Jack Mendoza M.D. [id number] Eosinophils/100 WBC (Bld) 2.3 % Normal [facility] Comment on above: Performed By: #### L [id number] #### LAB [address] [place] [address] Jack Mendoza M.D. [id number] Erythrocyte distribution width (RBC) [Ratio] 20.3 % High 11.6-14.8 [facility] Comment on above: Performed By: #### L [id number] #### LAB [address] [address] Jack Mendoza M.D. [id number] Hematocrit (Bld) [Volume fraction] 36.7 % Low 41.0-53.0 [facility] Comment on above: Performed By: #### L [id number] #### LAB [address] [place] [address] Jack Mendoza M.D. [id number] Hemoglobin (Bld) [Mass/Vol] 11.2 g/dL Low 13.5-17.5 [facility] Comment on above: Performed By: #### L [id number] #### LAB [address] [address] Jack Mendoza M.D. [id number] IG ABSOLUTE 0.04 K/mcL Normal 0.00-0.30 [facility] Comment on above: Performed By: #### L [id number] #### LAB [address] [address] Jack Mendoza M.D. [id number] IG PERCENT 0.50 % Normal [facility] Comment on above: Result Comment: The IG parameter is the percentage of metamyelocytes, myelocytes and promyelocytes. An immature granulocyte count (IG) of 1% or more suggests the possibility of infection, an IG count of 3% is very likely related to an infection. Performed By: #### L [id number] #### LAB [address] [address] Jack Mendoza M.D. [id number] Lymphocytes (Bld) [#/Vol] 1.84 10*3/uL Normal 0.90-4.00 [facility] Comment on above: Performed By: #### L [id number] #### LAB [address] [address] Jack Mendoza M.D. [id number] Lymphocytes/100 WBC (Bld) 22.7 % Normal [facility] Comment on above: Performed By: #### L [id number] #### LAB [address] [address] Jack Mendoza M.D. [id number] MCH (RBC) [Entitic mass] 20.3 pg Low 26.0-34.0 [facility] Comment on above: Performed By: #### L [id number] #### LAB [address] [address] Jack Mendoza M.D. [id number] MCV (RBC) [Entitic vol] 66.6 fL Low 80.0-100.0 [facility] Comment on above: Performed By: #### L [id number] ####[facility] LAB [address] [address] Jack Mendoza M.D. [id number] MEAN CORPUSCULAR HEMOGLOBIN CONC 30.5 g/dL Low 31.0-37.0 [facility] Comment on above: Performed By: #### L [id number] #### LAB [address] [address] Jack Mendoza M.D. [id number] Monocytes (Bld) [#/Vol] 0.84 10*3/uL Normal 0.30-0.90 [facility] Comment on above: Performed By: #### L [id number] #### LAB [address] [address] Jack Mendoza M.D. [id number] Monocytes/100 WBC (Bld) 10.3 % Normal [facility] Comment on above: Performed By: #### L [id number] #### LAB [address] [address] Jack Mendoza M.D. [id number] NEUTROPHILS ABSOLUTE COUNT 5.17 K/mcL Normal 1.70-7.00 [facility] Comment on above: Performed By: #### L [id number] #### LAB [address] [address] Jack Mendoza M.D. [id number] Neutrophils/100 WBC (Bld) 63.7 % Normal [facility] Comment on above: Performed By: #### L [id number] #### LAB [address] [address] Jack Mendoza M.D. [id number] Platelet mean volume (Bld) [Entitic vol] 9.7 fL Normal 9.4-12.4 [facility] Comment on above: Performed By: #### L [id number] #### LAB [address] [address] Jack Mendoza M.D. [id number] Platelets (Bld) [#/Vol] 205 10*3/uL Normal 150-400 [facility] Comment on above: Performed By: #### L [id number] ####[facility] LAB [address] [address] Jack Mendoza M.D. [id number] RBC (Bld) [#/Vol] 5.51 10*6/uL Normal 4.50-5.90 [facility] Comment on above: Performed By: #### L [id number] ####[facility] LAB [address] [address] Jack Mendoza M.D. [id number] WBC (Bld) [#/Vol] 8.12 10*3/uL Normal 4.50-11.00 [facility] Comment on above: Performed By: #### L [id number] ####[facility] LAB [address] [address] Jack Mendoza M.D. [id number] CONSULTon 02-12-2025 CONSULT Normal [facility] CPKon 02-12-2025 CPK 74 U/L Normal [address] [place] [address] Comment on above: Performed By: #### 4 8261 ####[facility] LAB [address] [address] Jack Mendoza M.D. [id number] CPK 43 U/L Low 60-[address] [place] [address] Comment on above: Performed By: #### 4 8261 ####[facility] LAB [address] [address] Jack Mendoza M.D. [id number] CRP, INFLAMMATIONon 02-13-20 25 CRP [Mass/Vol] 33.9 mg/L High 0.0-10.0 [facility] Comment on above: Performed By: #### 4 5334 ####[facility] LAB [address] [address] Jack Mendoaz M.D. [id number] CT CHEST ABDOMEN PELVIS WITH OUT CONTRASTon 02-12-2025 CT CHEST ABDOMEN PELVIS WITHOUT CONTRAST Normal [facility] Comment on above: Order Comment: Injur y/Trauma or Illness?:Illness/OtherHow long have you had these symptoms (acute/chronic)?:AcuteReason for exam?:marlene, sepsisType of Exam?:InitialAdditional signs and symptoms?:. ECHOCARDIOGRAM COMPLETEon ECHOCARDIOGRAM COMPLETE Normal [facility] ED Prov Noteon 02-12-2025 ED Prov Note Normal [facility] ETHYLENE GLYCOLon 02-12-2025 ETHYLENE GLYCOL Not detected Normal None Detected [facility] Comment on above: Order Comment: Test performed by:[facility] Reference [address] [place] [id number] Result Comment: This Gas Chromatography test was developed and its performance characteristics determined by [facility] at [facility]. It has not been cleared or approved by the FDA. The laboratory is regulated under CLIA as qualified to perform high-complexity testing. This test is used for clinical purposes. It should not be regarded as investigational or for research. Performed By: #### 4 5562 #### LAB [address] [address] Jack Mendoza M.D. [id number] HEPATIC FUNCTION PANELon Albumin [Mass/Vol] 3.1 g/dL Low 3.2-5.2 [facility] Comment on above: Performed By: #### 4 5866 ####[facility] LAB [address] [address] Jack Mendoza M.D. [id number] ALP [Catalytic activity/Vol] 60 U/L Normal 40-150 [facility] Comment on above: Performed By: #### 4 5866 #### LAB [address] [address] Jack Mendoza M.D. [id number] ALT [Catalytic activity/Vol] 10 U/L Normal 0-50 U/L [facility] Comment on above: Performed By: #### 4 5866 ####[facility] LAB [address] [address] Jack Mendoza M.D. [id number] AST [Catalytic activity/Vol] 22 U/L Normal 0-50 U/L [facility] Comment on above: Performed By: #### 4 5866 #### LAB [address] [address] Jack Mendoza M.D. [id number] Bilirubin [Mass/Vol] 0.5 mg/dL Normal 0.0-1.3 [facility] Comment on above: Performed By: #### 4 5866 #### LAB [address] [address] Jack eMndoza M.D. [id number] Bilirubin.indirect [Mass/Vol] 0.3 mg/dL Normal 0.0-0.4 [facility] Comment on above: Performed By: #### 4 5866 #### LAB [address] [address] Jack Mendoza M.D. [id number] Protein [Mass/Vol] 7.4 g/dL Normal 6.0-8.0 [facility] Comment on above: Performed By: #### 4 5866 #### LAB [address] [address] Jack Mendoza M.D. [id number] MAGNESIUM LEVELon 02-12-2025 Magnesium [Mass/Vol] 2.3 mg/dL Normal 1.6-2.4 [facility] Comment on above: Performed By: #### 4 6109 #### LAB [address] [address] Jack Mendoza M.D. [id number] MRSA DNA AMPLIFIED PROBEon 0 02-12-2025 MRSA DNA AMPLIFIED PROBE Negative Normal Not Detected, MRSA NEGATIVE [facility] Comment on above: Performed By: #### 4 8061 #### LAB [address] [address] Jack Mendoza M.D. [id number] NT PRO BNPon 02-12-2025 Natriuretic peptide B (Bld) [Mass/Vol] 157 pg/mL Normal 0-300 [facility] Comment on above: Order Comment: Pride Study Cut-offsRule In:< /= 50 Years >450 pg/mL51 Years - 75 Years >900 pg/mL76 Years - 99 Years >1800 pg/mLRule Out:All patients <300 pg/mL Performed By: #### 4 7395 #### LAB [address] [place], [place] [address] Jack Mendoza M.D. [id number] POC ARTERIAL BLOOD GAS PANEL -ERIKA Shannon 02-12-2025 [id number] 131.4 mm Hg Normal [facility] Comment on above: Performed By: #### 4 8716 #### LAB [address] [address] Jack Mendoza M.D. [id number] BASE EXCESS, ARTERIAL -0.7 Normal -2.0-2.0 [facility] Comment on above: Performed By: #### 4 8716 ####[facility] [address] [address] Jack Mendoza M.D. [id number] CALCIUM IONIZED 4.7 mg/dL Normal 4.5-5.3 [facility] Comment on above: Performed By: #### 4 8716 #### LAB [address] [address] Jack Mendoza M.D. [id number] CARBOXYHEMOGLOBIN 1.1 % of total Hb Normal <=1.5 [facility] Comment on above: Result Comment: Refe rence Ranges:Suburban Non-smokers: <1.5%Smokers: 1.5-5.0%Heavy Smokers: 5.0-9.0% Performed By: #### 4 8716 #### LAB [address] [address] Jack Mendoza M.D. [id number] Chloride [Moles/Vol] 106 mmol/L Normal 98-108 [facility] Comment on above: Performed By: #### 4 8716 ####[facility] [address] [id number] Jack Mendoza M.D. [id number] FIO2 40 Normal [facility] Comment on above: Performed By: #### 4 8716 ####[facility] [address] [address] Jack Mendoza M.D. [id number] Glucose [Mass/Vol] 133 mg/dL High 65-99 [facility] Comment on above: Performed By: #### 4 8716 #### LAB [address] [address] Jack Mendoza M.D. [id number] HCO3 (Bld) [Moles/Vol] 24.2 mmol/L Normal 22.0-26.0 [facility] Comment on above: Performed By: #### 4 8716 #### LAB [address] [address] Jack Mendoza M.D. [id number] Hematocrit (Bld) [Volume fraction] 36.6 % Low 41.0-53.0 [facility] Comment on above: Performed By: #### 4 8716 #### LAB [address] [address] Jack Mendoza M.D. [id number] Hemoglobin (Bld) [Mass/Vol] 11.9 g/dL Low 13.5-17.5 [facility] Comment on above: Performed By: #### 4 8716 #### LAB [address] [address] Jack Mendoza M.D. [id number] LACTIC ACID, WHOLE BLOOD 1.1 mmol/L Normal 0.6-2.0 [facility] Comment on above: Performed By: #### 4 8716 #### LAB [address] [address] Jack Mendoza M.D. [id number] METHEMOGLOBIN < Normal 0.0-2.0 [facility] Comment on above: Performed By: #### 4 8716 #### LAB [address] [address] Jack Mendoza M.D. [id number] O2HB 96.0 % Normal 94.0-98.0 [facility] Comment on above: Performed By: #### 4 8716 #### LAB [address] [address] Jack Mendoza M.D. [id number] Oxygen saturation in Blood 97.8 % Normal 92.0-99.0 [facility] Comment on above: Performed By: #### 4 8716 ####[facility] [address] [address] Jack Mendoza M.D. [id number] PCO2 ARTERIAL 40.2 mm Hg Normal 35.0-45.0 [facility] Comment on above: Performed By: #### 4 8716 ####[facility] [address] [address] Jack Mendoza M.D. [id number] PEEP RAD 5 Normal [facility] Comment on above: Performed By: #### 4 8716 ####[facility] [address] [address] Jack Mendoza M.D. [id number] PH ARTERIAL 7.39 Normal 7.35-7.45 [facility] Comment on above: Performed By: #### 4 8716 #### LAB [address] [address] Jack Mendoza M.D. [id number] PO2 ARTERIAL 97 mm Hg Normal 80-100 [facility] Comment on above: Performed By: #### 4 8716 #### LAB [address] [address] Jack Mendoza M.D. [id number] Potassium [Moles/Vol] 4.9 mmol/L Normal 3.5-5.1 [facility] Comment on above: Performed By: #### 4 8716 #### LAB [address] [address] Jack Mendoza M.D. [id number] RESP RATE RAD 24 Normal [facility] Comment on above: Performed By: #### 4 8716 #### LAB [address] [address] Jack Mendoza M.D. [id number] Sodium [Moles/Vol] 138 mmol/L Normal 135-145 [facility] Comment on above: Performed By: #### 4 8716 ####[facility] [address] [address] Jack Mendoza M.D. [id number] SPECIMEN SOURCE RADIANCE Radial, left Normal [facility] Comment on above: Performed By: #### 4 8716 ####[facility] [address] [address] Jack Mendoza M.D. [id number] TIDAL VOLUME RAD 460 Normal [facility] Comment on above: Performed By: #### 4 8716 ####[facility] [address] [address] Jack Mendoza M.D. [id number] POC GLUCOSE [facility] 025 Glucose [Mass/Vol] 136 mg/dL [address] Comment on above: Performed By: #### 4 6932 ####[facility] [address] [address] Jack Mendoza M.D. [id number] Glucose [Mass/Vol] 138 mg/dL [address] Comment on above: Performed By: #### 4 6932 ####[facility] [address] [address] Jack Mendoza M.D. [id number] Glucose [Mass/Vol] 123 mg/dL [address] Comment on above: Performed By: #### 4 6932 ####[facility] [address] [address] Jack Mendoza M.D. [id number] Glucose [Mass/Vol] 130 mg/dL [address] Comment on above: Performed By: #### 4 6932 #### LAB [address] [address] Jack Mendoza M.D. [id number] Glucose [Mass/Vol] 121 mg/dL [address] Comment on above: Performed By: #### 4 6972 ####[facility] [address] [address] Jack Mendoza M.D. [id number] Glucose [Mass/Vol] 130 mg/dL [address] Comment on above: Performed By: #### 4 1171 ####[facility] [address] [address] Jack Mendoza M.D. [id number] Glucose [Mass/Vol] 139 mg/dL High [address] [place] [address] Comment on above: Performed By: #### 4 6932 #### LAB [address] [address] Jack Mendoza M.D. [id number] Glucose [Mass/Vol] 113 mg/dL [address] Comment on above: Performed By: #### 4 6932 #### LAB [address] [address] Jack Mendoza M.D. [id number] Glucose [Mass/Vol] 112 mg/dL [address] Comment on above: Performed By: #### 4 6932 #### LAB [address] [address] Jack Mendoza M.D. [id number] Glucose [Mass/Vol] 106 mg/dL [address] Comment on above: Performed By: #### 4 6932 #### LAB [address] [address] Jack Mendoza M.D. [id number] PROCALCITONINon 02-12-2025 PROCALCITONIN 0.20 ng/ml Normal <0.50 [facility] Comment on above: Order Comment: Resul ts <0.50 ng/ml represent a low risk of severe sepsis and/or septic shock. Performed By: #### 4 7652 #### LAB [address] [address] Jack Mendoza M.D. [id number] PT/INRon 02-12-2025 INR Coag (PPP) [Relative time] 1.2 {INR} High 0.8-1.1 [facility] Comment on above: Order Comment: Markin g the induction phase of oral anticoagulation, the INR may not reflect the anticoagulation status of the patient. Therapeutic ranges for INR's are:Most clinical situations: INR 2.0-3.0Mechanical Prosthetic Valve: INR 2.5-3.5Critical: INR >5.0 Performed By: #### 4 6391 #### LAB [address] [address] Jack Mendoza M.D. [id number] PT Coag (PPP) [Time] 15.0 s High 11.8-14.3 [facility] Comment on above: Order Comment: Paxton g the induction phase of oral anticoagulation, the INR may not reflect the anticoagulation status of the patient. Therapeutic ranges for INR's are:Most clinical situations: INR 2.0-3.0Mechanical Prosthetic Valve: INR 2.5-3.5Critical: INR >5.0 Performed By: #### 4 6391 #### LAB [address] [address] Jack Mendoza M.D. [id number] RESPIRATORY PCR PANELon 01-21 RESPIRATORY PCR PANEL Normal Not Detected [facility] Comment on above: Performed By: #### L [id number] ####[facility] [address] [place] [address] Venancio Richardson M.D. [id number] SEDIMENTATION RATEon 025 SEDIMENTATION RATE, ERYTHROCYTE 102 mm/hr High 0-20 [facility] Comment on above: Performed By: #### 4 6477 #### LAB [address] [address] Jack Mendoza M.D. [id number] URINE AEROBIC CULTUREon 01-21 URINE AEROBIC CULTURE URINE CULTURE No Growth (<1,000 CFU/mL) Normal [facility] Comment on above: Performed By: #### 4 4053 ####[facility] [address] [place] [address] Venancio Richardson M.D. [id number] US DUPLEX VENOUS LEGS BILATE RALon 02-12-2025 US DUPLEX VENOUS LEGS BILATERAL Normal [facility] ALCOHOL, MEDICALon ALCOHOL MEDICAL < Normal <10.0 [facility] Comment on above: Result Comment: Alco hol cutoff: <10.00 mg/dL = None Detected Performed By: #### 4 5033 #### LAB [address] [address] Jack Mendoza M.D. [id number] AMMONIAon 02-11-2025 AMMONIA 39 micromol/L Normal [facility] Comment on above: Performed By: #### 4 5060 #### LAB [address] [address] Jack Mendoza M.D. [id number] BLOOD CULTURE AEROBIC/ANAERO BICon 02-11-2025 BLOOD CULTURE AEROBIC/ANAEROBIC BLOOD CULTURE No Growth after 5 days Normal [facility] Comment on above: Performed By: #### 4 4014 #### LAB [address] [address] Jack Mendoza M.D. [id number] BLOOD CULTURE AEROBIC/ANAEROBIC BLOOD CULTURE STAPHYLOCOCCUS HAEMOLYTICUS Staphylococcus haemolyticus Sets Positive [1] of [2] GRAM STAIN RESULT BC Gram Positive Cocci in clusters Abnormal [facility] Comment on above: Performed By: #### 4 4014 #### LAB [address] [address] Jack Mendoza M.D. [id number] [address] [place] [address] Venancio Richardson M.D. [id number] BLOOD CULTURE ID PCRon 02-11 BLOOD CULTURE ID PCR Abnormal Not Detected [facility] Comment on above: Performed By: #### L [id number] #### LAB [address] [address] Jack Mendoza M.D. [id number] CBC WITH AUTO DIFFERENTIALon 02-11-2025 AUTO NRBC 0.0 % Normal [facility] Comment on above: Order Comment: Micro cytic, hypochromic anemia with erythrocytosis. The finding is commonly caused by thalassemia or other hemoglobinopathy with or without associated iron deficiency. Less commonly, it can be due to secondary erythrocytosis due to a chronic disease or a bone marrow disorder such as primary erythrocytosis (polycythemia vera). Performed By: #### L [id number] #### LAB [address] [address] Jack Mendoza M.D. [id number] AUTO NRBC ABS COUNT 0.00 K/mcL Normal 0.00-0.00 [facility] Comment on above: Order Comment: Micro cytic, hypochromic anemia with erythrocytosis. The finding is commonly caused by thalassemia or other hemoglobinopathy with or without associated iron deficiency. Less commonly, it can be due to secondary erythrocytosis due to a chronic disease or a bone marrow disorder such as primary erythrocytosis (polycythemia vera). Performed By: #### L [id number] ####[facility] [address] [address] Jack Mendoza M.D. [id number] BASOPHILS ABSOLUTE COUNT 0.03 K/mcL Normal 0.00-0.30 [facility] Comment on above: Order Comment: Micro cytic, hypochromic anemia with erythrocytosis. The finding is commonly caused by thalassemia or other hemoglobinopathy with or without associated iron deficiency. Less commonly, it can be due to secondary erythrocytosis due to a chronic disease or a bone marrow disorder such as primary erythrocytosis (polycythemia vera). Performed By: #### L [id number] ####[facility] [address] [address] Jack Mendoza M.D. [id number] Basophils/100 WBC (Bld) 0.4 % Normal [facility] Comment on above: Order Comment: Micro cytic, hypochromic anemia with erythrocytosis. The finding is commonly caused by thalassemia or other hemoglobinopathy with or without associated iron deficiency. Less commonly, it can be due to secondary erythrocytosis due to a chronic disease or a bone marrow disorder such as primary erythrocytosis (polycythemia vera). Performed By: #### L [id number] ####[facility] [address] [address] Jack Mendoza M.D. [id number] Eosinophils (Bld) [#/Vol] 0.08 10*3/uL Normal 0.00-0.50 [facility] Comment on above: Order Comment: Micro cytic, hypochromic anemia with erythrocytosis. The finding is commonly caused by thalassemia or other hemoglobinopathy with or without associated iron deficiency. Less commonly, it can be due to secondary erythrocytosis due to a chronic disease or a bone marrow disorder such as primary erythrocytosis (polycythemia vera). Performed By: #### L [id number] ####[facility] [address] [address] Jack Mendoza M.D. [id number] Eosinophils/100 WBC (Bld) 1.1 % Normal [facility] Comment on above: Order Comment: Micro cytic, hypochromic anemia with erythrocytosis. The finding is commonly caused by thalassemia or other hemoglobinopathy with or without associated iron deficiency. Less commonly, it can be due to secondary erythrocytosis due to a chronic disease or a bone marrow disorder such as primary erythrocytosis (polycythemia vera). Performed By: #### L [id number] ####[facility] [address] [address] Jack Mendoza M.D. [id number] Erythrocyte distribution width (RBC) [Ratio] 20.6 % High 11.6-14.8 [facility] Comment on above: Order Comment: Micro cytic, hypochromic anemia with erythrocytosis. The finding is commonly caused by thalassemia or other hemoglobinopathy with or without associated iron deficiency. Less commonly, it can be due to secondary erythrocytosis due to a chronic disease or a bone marrow disorder such as primary erythrocytosis (polycythemia vera). Performed By: #### L [id number] ####[facility] [address] [address] Jack Mendoza M.D. [id number] Hematocrit (Bld) [Volume fraction] 40.4 % Low 41.0-53.0 [facility] Comment on above: Order Comment: Micro cytic, hypochromic anemia with erythrocytosis. The finding is commonly caused by thalassemia or other hemoglobinopathy with or without associated iron deficiency. Less commonly, it can be due to secondary erythrocytosis due to a chronic disease or a bone marrow disorder such as primary erythrocytosis (polycythemia vera). Performed By: #### L [id number] ####[facility] [address] [address] Jack Mendoza M.D. [id number] Hemoglobin (Bld) [Mass/Vol] 12.2 g/dL Low 13.5-17.5 [facility] Comment on above: Order Comment: Micro cytic, hypochromic anemia with erythrocytosis. The finding is commonly caused by thalassemia or other hemoglobinopathy with or without associated iron deficiency. Less commonly, it can be due to secondary erythrocytosis due to a chronic disease or a bone marrow disorder such as primary erythrocytosis (polycythemia vera). Performed By: #### L [id number] ####[facility] [address] [address] Jack Mendoza M.D. [id number] IG ABSOLUTE 0.03 K/mcL Normal 0.00-0.30 [facility] Comment on above: Order Comment: Micro cytic, hypochromic anemia with erythrocytosis. The finding is commonly caused by thalassemia or other hemoglobinopathy with or without associated iron deficiency. Less commonly, it can be due to secondary erythrocytosis due to a chronic disease or a bone marrow disorder such as primary erythrocytosis (polycythemia vera). Performed By: #### L [id number] ####[facility] [address] [address] Jack Mendoza M.D. [id number] IG PERCENT 0.40 % Normal [facility] Comment on above: Order Comment: Micro cytic, [...] to an infection. Performed By: #### L [id number] ####[facility] [address] [address] Jack Mendoza M.D. [id number] Lymphocytes (Bld) [#/Vol] 1.28 10*3/uL Normal 0.90-4.00 [facility] Comment on above: Order Comment: Micro cytic, hypochromic anemia with erythrocytosis. The finding is commonly caused by thalassemia or other hemoglobinopathy with or without associated iron deficiency. Less commonly, it can be due to secondary erythrocytosis due to a chronic disease or a bone marrow disorder such as primary erythrocytosis (polycythemia vera). Performed By: #### L [id number] ####[facility] [address] [address] Jack Mendoza M.D. [id number] Lymphocytes/100 WBC (Bld) 17.8 % Normal [facility] Comment on above: Order Comment: Micro cytic, hypochromic anemia with erythrocytosis. The finding is commonly caused by thalassemia or other hemoglobinopathy with or without associated iron deficiency. Less commonly, it can be due to secondary erythrocytosis due to a chronic disease or a bone marrow disorder such as primary erythrocytosis (polycythemia vera). Performed By: #### L [id number] ####[facility] [address] [address] Jack Mendoza M.D. [id number] MCH (RBC) [Entitic mass] 20.3 pg Low 26.0-34.0 [facility] Comment on above: Order Comment: Micro cytic, hypochromic anemia with erythrocytosis. The finding is commonly caused by thalassemia or other hemoglobinopathy with or without associated iron deficiency. Less commonly, it can be due to secondary erythrocytosis due to a chronic disease or a bone marrow disorder such as primary erythrocytosis (polycythemia vera). Performed By: #### L [id number] ####[facility] [address] [address] Jack Mendoza M.D. [id number] MCV (RBC) [Entitic vol] 67.3 fL Low 80.0-100.0 [facility] Comment on above: Order Comment: Micro cytic, hypochromic anemia with erythrocytosis. The finding is commonly caused by thalassemia or other hemoglobinopathy with or without associated iron deficiency. Less commonly, it can be due to secondary erythrocytosis due to a chronic disease or a bone marrow disorder such as primary erythrocytosis (polycythemia vera). Performed By: #### L [id number] ####[facility] [address] [address] Jack Mendoza M.D. [id number] MEAN CORPUSCULAR HEMOGLOBIN CONC 30.2 g/dL Low 31.0-37.0 [facility] Comment on above: Order Comment: Micro cytic, hypochromic anemia with erythrocytosis. The finding is commonly caused by thalassemia or other hemoglobinopathy with or without associated iron deficiency. Less commonly, it can be due to secondary erythrocytosis due to a chronic disease or a bone marrow disorder such as primary erythrocytosis (polycythemia vera). Performed By: #### L [id number] ####[facility] [address] [address] Jack Mendoza M.D. [id number] Monocytes (Bld) [#/Vol] 0.65 10*3/uL Normal 0.30-0.90 [facility] Comment on above: Order Comment: Micro cytic, hypochromic anemia with erythrocytosis. The finding is commonly caused by thalassemia or other hemoglobinopathy with or without associated iron deficiency. Less commonly, it can be due to secondary erythrocytosis due to a chronic disease or a bone marrow disorder such as primary erythrocytosis (polycythemia vera). Performed By: #### L [id number] ####[facility] [address] [address] Jack Mendoza M.D. [id number] Monocytes/100 WBC (Bld) 9.0 % Normal [facility] Comment on above: Order Comment: Micro cytic, hypochromic anemia with erythrocytosis. The finding is commonly caused by thalassemia or other hemoglobinopathy with or without associated iron deficiency. Less commonly, it can be due to secondary erythrocytosis due to a chronic disease or a bone marrow disorder such as primary erythrocytosis (polycythemia vera). Performed By: #### L [id number] ####[facility] [address] [address] Jack Mendoza M.D. [id number] NEUTROPHILS ABSOLUTE COUNT 5.13 K/mcL Normal 1.70-7.00 [facility] Comment on above: Order Comment: Micro cytic, hypochromic anemia with erythrocytosis. The finding is commonly caused by thalassemia or other hemoglobinopathy with or without associated iron deficiency. Less commonly, it can be due to secondary erythrocytosis due to a chronic disease or a bone marrow disorder such as primary erythrocytosis (polycythemia vera). Performed By: #### L [id number] ####[facility] [address] [address] Jack Mendoza M.D. [id number] Neutrophils/100 WBC (Bld) 71.3 % Normal [facility] Comment on above: Order Comment: Micro cytic, hypochromic anemia with erythrocytosis. The finding is commonly caused by thalassemia or other hemoglobinopathy with or without associated iron deficiency. Less commonly, it can be due to secondary erythrocytosis due to a chronic disease or a bone marrow disorder such as primary erythrocytosis (polycythemia vera). Result Comment: Tiffany pheral smear reviewed manually Performed By: #### L [id number] ####[facility] [address] [address] Jack Mendoza M.D. [id number] Platelet mean volume (Bld) [Entitic vol] 9.1 fL Low 9.4-12.4 [facility] Comment on above: Order Comment: Micro cytic, hypochromic anemia with erythrocytosis. The finding is commonly caused by thalassemia or other hemoglobinopathy with or without associated iron deficiency. Less commonly, it can be due to secondary erythrocytosis due to a chronic disease or a bone marrow disorder such as primary erythrocytosis (polycythemia vera). Performed By: #### L [id number] ####[facility] [address] [address] Jack Mendoza M.D. [id number] Platelets (Bld) [#/Vol] 171 10*3/uL Normal 150-400 [facility] Comment on above: Order Comment: Micro cytic, hypochromic anemia with erythrocytosis. The finding is commonly caused by thalassemia or other hemoglobinopathy with or without associated iron deficiency. Less commonly, it can be due to secondary erythrocytosis due to a chronic disease or a bone marrow disorder such as primary erythrocytosis (polycythemia vera). Performed By: #### L [id number] ####[facility] [address] [place], [place] [address] Jack Mendoza M.D. [id number] RBC (Bld) [#/Vol] 6.00 10*6/uL High 4.50-5.90 [facility] Comment on above: Order Comment: Micro cytic, hypochromic anemia with erythrocytosis. The finding is commonly caused by thalassemia or other hemoglobinopathy with or without associated iron deficiency. Less commonly, it can be due to secondary erythrocytosis due to a chronic disease or a bone marrow disorder such as primary erythrocytosis (polycythemia vera). Performed By: #### L [id number] ####[facility] [address] [place], [place] [address] Jack Mendoza M.D. [id number] WBC (Bld) [#/Vol] 7.20 10*3/uL Normal 4.50-11.00 [facility] Comment on above: Order Comment: Micro cytic, hypochromic anemia with erythrocytosis. The finding is commonly caused by thalassemia or other hemoglobinopathy with or without associated iron deficiency. Less commonly, it can be due to secondary erythrocytosis due to a chronic disease or a bone marrow disorder such as primary erythrocytosis (polycythemia vera). Performed By: #### L [id number] ####[facility] [address] [place], [place] [address] Jack Mendoza M.D. [id number] COMPREHENSIVE METABOLIC PANE [facility] 02-11-2025 Albumin [Mass/Vol] 3.6 g/dL Normal 3.2-5.2 [facility] Comment on above: Order Comment: [facility] has implemented the eGFR calculation approach that does not have a coefficient for race that conforms to the NKF-ASN Task Force Recommendations. Performed By: #### 4 6126 ####[facility] [address] [place], [place] [address] Jack Mendoza M.D. [id number] ALP [Catalytic activity/Vol] 77 U/L Normal 40-150 [facility] Comment on above: Order Comment: [facility] has implemented the eGFR calculation approach that does not have a coefficient for race that conforms to the NKF-ASN Task Force Recommendations. Performed By: #### 4 6126 #### LAB [address] [address] Jack Mendoza M.D. [id number] ALT [Catalytic activity/Vol] 9 U/L Normal 0-50 U/L [facility] Comment on above: Order Comment: [facility] has implemented the eGFR calculation approach that does not have a coefficient for race that conforms to the NKF-ASN Task Force Recommendations. Performed By: #### 4 6126 #### LAB [address] [address] Jack Mendoza M.D. [id number] Anion gap [Moles/Vol] 22 mmol/L High 10-20 [facility] Comment on above: Order Comment: [facility] has implemented the eGFR calculation approach that does not have a coefficient for race that conforms to the NKF-ASN Task Force Recommendations. Performed By: #### 4 6126 #### LAB [address] [address] Jack Mendoza M.D. [id number] AST [Catalytic activity/Vol] 24 U/L Normal 0-50 U/L [facility] Comment on above: Order Comment: [facility] has implemented the eGFR calculation approach that does not have a coefficient for race that conforms to the NKF-ASN Task Force Recommendations. Performed By: #### 4 6126 #### LAB [address] [address] Jack Mendoza M.D. [id number] Bilirubin [Mass/Vol] 0.4 mg/dL Normal 0.0-1.3 [facility] Comment on above: Order Comment: [facility] has implemented the eGFR calculation approach that does not have a coefficient for race that conforms to the NKF-ASN Task Force Recommendations. Performed By: #### 4 6126 #### LAB [address] [address] Jack Mendoza M.D. [id number] Calcium [Mass/Vol] 8.9 mg/dL Normal 8.4-10.2 [facility] Comment on above: Order Comment: [facility] has implemented the eGFR calculation approach that does not have a coefficient for race that conforms to the NKF-ASN Task Force Recommendations. Performed By: #### 4 6126 #### LAB [address] [address] Jack Mendoza M.D. [id number] Chloride [Moles/Vol] 100 mmol/L Normal 98-108 [facility] Comment on above: Order Comment: [facility] has implemented the eGFR calculation approach that does not have a coefficient for race that conforms to the NKF-ASN Task Force Recommendations. Performed By: #### 4 6126 #### LAB [address] [address] Jack Mendoza M.D. [id number] Creatinine [Mass/Vol] 5.66 mg/dL High 0.50-1.30 [facility] Comment on above: Order Comment: [facility] has implemented the eGFR calculation approach that does not have a coefficient for race that conforms to the NKF-ASN Task Force Recommendations. Performed By: #### 4 6126 #### LAB [address] [address] Jack Mendoza M.D. [id number] EGFR 11 mL/min/1.73 m2 Low >=60 [facility] Comment on above: Order Comment: [facility] has implemented the eGFR calculation approach that does not have a coefficient for race that conforms to the NKF-ASN Task Force Recommendations. Result Comment: Ashley mated GFR was calculated using the 2020 CKD-EPI creatinine equation. Performed By: #### 4 6126 #### LAB [address] [address] Jack Mendoza M.D. [id number] Glucose [Mass/Vol] 98 mg/dL Normal 65-99 [facility] Comment on above: Order Comment: [facility] has implemented the eGFR calculation approach that does not have a coefficient for race that conforms to the NKF-ASN Task Force Recommendations. Performed By: #### 4 6126 #### LAB [address] [id number] Jack Mendoza M.D. [id number] HCO3 (Bld) [Moles/Vol] 20 mmol/L Low 21-32 [facility] Comment on above: Order Comment: [facility] has implemented the eGFR calculation approach that does not have a coefficient for race that conforms to the NKF-ASN Task Force Recommendations. Performed By: #### 4 6126 #### LAB [address] [address] Jack Mendoza M.D. [id number] Potassium [Moles/Vol] 7.6 mmol/L Off scale high 3.5-5.1 [facility] Comment on above: Order Comment: [facility] has implemented the eGFR calculation approach that does not have a coefficient for race that conforms to the NKF-ASN Task Force Recommendations. Performed By: #### 4 6126 #### LAB [address] [address] Jack Mendoza M.D. [id number] Protein [Mass/Vol] 8.7 g/dL High 6.0-8.0 [facility] Comment on above: Order Comment: [facility] has implemented the eGFR calculation approach that does not have a coefficient for race that conforms to the NKF-ASN Task Force Recommendations. Performed By: #### 4 6126 #### LAB [address] [address] Jack Mendoza M.D. [id number] Sodium [Moles/Vol] 134 mmol/L Low 135-145 [facility] Comment on above: Order Comment: [facility] has implemented the eGFR calculation approach that does not have a coefficient for race that conforms to the NKF-ASN Task Force Recommendations. Performed By: #### 4 6126 #### LAB [address] [address] Jack Mendoza M.D. [id number] Urea nitrogen [Mass/Vol] 98 mg/dL High 8-25 [facility] Comment on above: Order Comment: [facility] has implemented the eGFR calculation approach that does not have a coefficient for race that conforms to the NKF-ASN Task Force Recommendations. Performed By: #### 4 6126 #### LAB [address] [address] Jack Mendoza M.D. [id number] Urea nitrogen/Creatinine [Mass ratio] 17.3 mg/mg Normal 10.0-20.0 [facility] Comment on above: Order Comment: [facility] has implemented the eGFR calculation approach that does not have a coefficient for race that conforms to the NKF-ASN Task Force Recommendations. Performed By: #### 4 6126 #### LAB [address] [address] Jack Mendoza M.D. [id number] CT HEAD OR BRAIN WITHOUT CON TRASTon 02-11-2025 CT HEAD OR BRAIN WITHOUT CONTRAST Normal [facility] Comment on above: Order Comment: Injur y/Trauma or Illness?:Illness/OtherHow long have you had these symptoms (acute/chronic)?:AcuteReason for exam?:AMSType of Exam?:InitialAdditional signs and symptoms?:c/o Altered mental status. Patient was found wondering around naked DRUGS OF ABUSE SCREEN, URINE on 02-11-2025 AMPHETAMINE SCREEN, URINE Not detected Normal None Detected [facility] Comment on above: Order Comment: Scree n results should be used for treatment purposes only.Specimen will be kept for 2 weeks, if the sample is adequate. Confirmation testing can be initiated by calling the lab within 2 weeks. Result Comment: Urin e Amphetamine Cutoff: < 1000 ng/mL = None Detected Performed By: #### 4 6965 #### LAB [address] [address] Jack Mendoza M.D. [id number] BARBITURATE SCREEN URINE Not detected Normal None Detected [facility] Comment on above: Order Comment: Scree n results should be used for treatment purposes only.Specimen will be kept for 2 weeks, if the sample is adequate. Confirmation testing can be initiated by calling the lab within 2 weeks. Result Comment: Urin e Barbiturates Cutoff: < 200 ng/mL = None Detected Performed By: #### 4 6965 ####[facility] [address] [address] Jack Mendoza M.D. [id number] BENZODIAZEPINE SCREEN, URINE Positive Abnormal None Detected [facility] Comment on above: Order Comment: Scree n results should be used for treatment purposes only.Specimen will be kept for 2 weeks, if the sample is adequate. Confirmation testing can be initiated by calling the lab within 2 weeks. Result Comment: Urin e Benzodiazepine Cutoff: < 200 ng/mL = None Detected Performed By: #### 4 6965 #### LAB [address] [address] Jack Mendoza M.D. [id number] BUPRENORPHINE, URINE Positive Abnormal None Detected [facility] Comment on above: Order Comment: Scree n results should be used for treatment purposes only.Specimen will be kept for 2 weeks, if the sample is adequate. Confirmation testing can be initiated by calling the lab within 2 weeks. Result Comment: Urin e Buprenorphine Cutoff: < 5 ng/mL = None Detected Performed By: #### 4 6965 ####[facility] [address] [address] Jack Mendoza M.D. [id number] CANNABINOID SCREEN URINE Not detected Normal None Detected [facility] Comment on above: Order Comment: Scree n results should be used for treatment purposes only.Specimen will be kept for 2 weeks, if the sample is adequate. Confirmation testing can be initiated by calling the lab within 2 weeks. Result Comment: Urin e Cannabinoids Cutoff: < 50 ng/mL = None Detected Performed By: #### 4 6965 ####[facility] [address] [address] Jack Mendoza M.D. [id number] COCAINE, SCREEN URINE Not detected Normal None Detected [facility] Comment on above: Order Comment: Scree n results should be used for treatment purposes only.Specimen will be kept for 2 weeks, if the sample is adequate. Confirmation testing can be initiated by calling the lab within 2 weeks. Result Comment: Urin e Cocaine Cutoff: < 300 ng/mL = None Detected Performed By: #### 4 6965 #### LAB [address] [address] Jack Mendoza M.D. [id number] FENTANYL, URINE Not detected Normal None Detected [facility] Comment on above: Order Comment: Scree n results should be used for treatment purposes only.Specimen will be kept for 2 weeks, if the sample is adequate. Confirmation testing can be initiated by calling the lab within 2 weeks. Result Comment: Urin e Fentanyl Cutoff: < 1 ng/mL = None Detected Performed By: #### 4 6965 ####[facility] [address] [address] Jack Mendoza M.D. [id number] METHADONE SCREEN, URINE Not detected Normal None Detected [facility] Comment on above: Order Comment: Scree n results should be used for treatment purposes only.Specimen will be kept for 2 weeks, if the sample is adequate. Confirmation testing can be initiated by calling the lab within 2 weeks. Result Comment: Urin e Methadone Cutoff: < 300 ng/mL = None Detected Performed By: #### 4 6965 ####[facility] [address] [address] Jack Mendoza M.D. [id number] OPIATE SCREEN URINE Not detected Normal None Detected [facility] Comment on above: Order Comment: Scree n results should be used for treatment purposes only.Specimen will be kept for 2 weeks, if the sample is adequate. Confirmation testing can be initiated by calling the lab within 2 weeks. Result Comment: Urin e Opiates Cutoff: < 300 ng/mL = None Detected Performed By: #### 4 6965 ####[facility] [address] [address] Jack Mendoza M.D. [id number] OXYCODONE SCREEN, URINE Not detected Normal None Detected [facility] Comment on above: Order Comment: Scree n results should be used for treatment purposes only.Specimen will be kept for 2 weeks, if the sample is adequate. Confirmation testing can be initiated by calling the lab within 2 weeks. Result Comment: Urin e Oxycodone Cutoff: < 100 ng/mL = None Detected Performed By: #### 4 6965 ####[facility] [address] [address] Jack Mendoza M.D. [id number] H AND Mike 02-11-2025 H AND P Normal [facility] HEMOGLOBIN A1Con 02-11-2025 Glucose [Mass/Vol] 131 mg/dL High 74-114 [facility] Comment on above: Performed By: #### 4 8202 ####[facility] [address] [address] Jack Mendoza M.D. [id number] HbA1c (Bld) [Mass fraction] 6.2 % High 4.2-5.6 [facility] Comment on above: Performed By: #### 4 8202 ####[facility] [address] [address] Jack Mendoza M.D. [id number] LACTIC ACID, PLASMAon 2024 LACTIC ACID, PLASMA 1.1 mmol/L Normal 0.6-2.0 [facility] Comment on above: Performed By: #### 4 6053 ####[facility] [address] [address] Jack Mendoza M.D. [id number] MORPHOLOGYon 02-11-2025 OVAL SCAN Moderate Normal [facility] Comment on above: Performed By: #### L AB295 ####[facility] [address] [address] Jack Mendoza M.D. [id number] PLATELET ESTIMATE Normal Normal Normal [facility] Comment on above: Performed By: #### L AB295 ####[facility] [address] [address] Jack Mendoza M.D. [id number] POLY SCAN Few Normal [facility] Comment on above: Performed By: #### L AB295 ####[facility] [address] [address] Jack Mendoza M.D. [id number] RBC MORPH SCAN See Comment [facility] Comment on above: Result Comment: RBC Indices confirmed with manual peripheral smear review. Performed By: #### L AB295 ####[facility] [address] [address] Jack Mendoza M.D. [id number] T[employer] CELL SCAN Few [facility] Comment on above: Performed By: #### L AB295 ####[facility] [address] [address] Jack Mendoza M.D. [id number] POC ARTERIAL BLOOD GAS PANEL -[facility] 02-11-2025 [id number] 43.1 mm Hg [facility] Comment on above: Performed By: #### 4 8716 ####[facility] [address] [address] Jack Mendoza M.D. [id number] BASE EXCESS, ARTERIAL -6.5 Low -2.0-2.0 [facility] Comment on above: Performed By: #### 4 8716 ####[facility] [address] [address] Jack Mendoza M.D. [id number] FIO2 32 [facility] Comment on above: Performed By: #### 4 8716 ####[facility] [address] [address] Jack Mendoza M.D. [id number] HCO3 (Bld) [Moles/Vol] 21.5 mmol/L Low 22.0-26.0 [facility] Comment on above: Performed By: #### 4 8716 ####[facility] [address] [address] Jack Mendoza M.D. [id number] Hematocrit (Bld) [Volume fraction] 37.6 % Low 41.0-53.0 [facility] Comment on above: Performed By: #### 4 8716 ####[facility] [address] [address] Jack Mendoza M.D. [id number] Hemoglobin (Bld) [Mass/Vol] 12.3 g/dL Low 13.5-17.5 [facility] Comment on above: Performed By: #### 4 8716 ####[facility] [address] [address] Jack Mendoza M.D. [id number] LITER FLOW 3 Normal [facility] Comment on above: Performed By: #### 4 8716 #### LAB [address] [address] Jack Mendoza M.D. [id number] Oxygen saturation in Blood 98.2 % Normal 92.0-99.0 [facility] Comment on above: Performed By: #### 4 8716 ####[facility] [address] [address] Jack Mendoza M.D. [id number] PCO2 ARTERIAL 52.5 mm Hg High 35.0-45.0 [facility] Comment on above: Performed By: #### 4 8716 #### LAB [address] [address] Jack Mendoza M.D. [id number] PH ARTERIAL 7.22 Low 7.35-7.45 [facility] Comment on above: Performed By: #### 4 8716 #### LAB [address] [address] Jack Mendoza M.D. [id number] PO2 ARTERIAL 116 mm Hg High 80-100 [facility] Comment on above: Performed By: #### 4 8716 #### LAB [address] [address] Jack Mendoza M.D. [id number] SPECIMEN SOURCE RADIANCE Brachial, right Normal [facility] Comment on above: Performed By: #### 4 8716 ####[facility] [address] [address] Jack Mendoza M.D. [id number] POC GLUCOSE - [facility] 025 Glucose [Mass/Vol] 110 mg/dL [address] Comment on above: Performed By: #### 4 6932 #### LAB [address] [address] Jack Mendoza M.D. [id number] Glucose [Mass/Vol] 114 mg/dL [address] Comment on above: Performed By: #### 4 6932 #### LAB [address] [place], [place] [address] Jack Mendoza M.D. [id number] Glucose [Mass/Vol] 100 mg/dL High 65-99 [facility] Comment on above: Performed By: #### 4 6932 #### LAB [address] [address] Jack Mendoza M.D. [id number] POTASSIUM LEVELon 02-11-2025 Potassium [Moles/Vol] 5.9 mmol/L High 3.5-5.1 [facility] Comment on above: Performed By: #### 4 6351 #### LAB [address] [address] Jack Mendoza M.D. [id number] TRIGLYCERIDESon 02-11-2025 Triglyceride [Mass/Vol] 74 mg/dL Normal 30-150 [facility] Comment on above: Result Comment: [place] [employer]olesterol [employer] Guidelines: TriglycerideNormal: <150 mg/dLBorderline High: 150-199 mg/dLHigh: 200-499 mg/dLVery High: greater than or equal to 500 mg/dL Performed By: #### 4 6606 #### LAB [address] [address] Jack Mendoza M.D. [id number] TROPONIN X 2 (NOW AND REPEAT IN 2 HOURS)on 02-11-2025 TROPONIN T DELTA CHANGE INTERPRETATION Delta troponin requires at least 2 hours between collections. Normal [facility] Comment on above: Performed By: #### 4 6608 #### LAB [address] [address] Jack Mendoza M.D. [id number] TROPONIN T NG/L 22 ng/L Normal <=22 [facility] Comment on above: Performed By: #### 4 6608 #### LAB [address] [address] Jack Mendoza M.D. [id number] BASELINE TROPONIN T NG/L 16 ng/L Normal <=22 [facility] Comment on above: Performed By: #### 4 6608 #### LAB [address] [address] Jack Mendoza M.D. [id number] TROPONIN T INTERPRETATION Normal Normal [facility] Comment on above: Performed By: #### 4 6608 #### LAB [address] [address] Jack Mendoza M.D. [id number] TSH WITH REFLEX FREE T4on TSH Qn 1.42 m[IU]/L Normal 0.27-4.20 [facility] Comment on above: Performed By: #### 4 6612 #### LAB [address] [address] Jack Mendoza M.D. [id number] URINALYSISon 02-11-2025 AMORPHOUS CRYSTALS Few Abnormal None Seen , Rare [facility] Comment on above: Order Comment: Micro scopic examination is performed on all urinalysis samples and only positive findings are reported. The test for blood on the chemical analytic portion of urinalysis may also be positive due to hemoglobinuria and myoglobinuria and if red blood cells are present they are quantified by microscopic examination. Performed By: #### 4 6625 #### LAB [address] [address] Jack Mendoza M.D. [id number] BACTERIA, URINE None Seen Normal None Seen [facility] Comment on above: Order Comment: Micro scopic examination is performed on all urinalysis samples and only positive findings are reported. The test for blood on the chemical analytic portion of urinalysis may also be positive due to hemoglobinuria and myoglobinuria and if red blood cells are present they are quantified by microscopic examination. Performed By: #### 4 6625 #### LAB [address] [address] Jack Mendoza M.D. [id number] BILIRUBIN, URINE Negative Normal Negative [facility] Comment on above: Order Comment: Micro scopic examination is performed on all urinalysis samples and only positive findings are reported. The test for blood on the chemical analytic portion of urinalysis may also be positive due to hemoglobinuria and myoglobinuria and if red blood cells are present they are quantified by microscopic examination. Performed By: #### 4 6625 #### LAB [address] [address] Jack Mendoza M.D. [id number] BLOOD, URINE Negative Normal Negative [facility] Comment on above: Order Comment: Micro scopic examination is performed on all urinalysis samples and only positive findings are reported. The test for blood on the chemical analytic portion of urinalysis may also be positive due to hemoglobinuria and myoglobinuria and if red blood cells are present they are quantified by microscopic examination. Performed By: #### 4 6625 #### LAB [address] [address] Jack Mendoza M.D. [id number] Clarity (U) Clear Normal Clear [facility] Comment on above: Order Comment: Micro scopic examination is performed on all urinalysis samples and only positive findings are reported. The test for blood on the chemical analytic portion of urinalysis may also be positive due to hemoglobinuria and myoglobinuria and if red blood cells are present they are quantified by microscopic examination. Performed By: #### 4 6625 #### LAB [address] [address] Jack Mendoza M.D. [id number] Color (U) Yellow Normal Colorless, Yellow [facility] Comment on above: Order Comment: Micro scopic examination is performed on all urinalysis samples and only positive findings are reported. The test for blood on the chemical analytic portion of urinalysis may also be positive due to hemoglobinuria and myoglobinuria and if red blood cells are present they are quantified by microscopic examination. Performed By: #### 4 6625 #### LAB [address] [address] Jack Mendoza M.D. [id number] Glucose Ql (U) Negative Normal Negative [facility] Comment on above: Order Comment: Micro scopic examination is performed on all urinalysis samples and only positive findings are reported. The test for blood on the chemical analytic portion of urinalysis may also be positive due to hemoglobinuria and myoglobinuria and if red blood cells are present they are quantified by microscopic examination. Performed By: #### 4 6625 #### LAB [address] [address] Jack Mendoza M.D. [id number] Hyaline casts LM Ql (Urine sed) 11-20 Abnormal 0-2 [facility] Comment on above: Order Comment: Micro scopic examination is performed on all urinalysis samples and only positive findings are reported. The test for blood on the chemical analytic portion of urinalysis may also be positive due to hemoglobinuria and myoglobinuria and if red blood cells are present they are quantified by microscopic examination. Performed By: #### 4 6625 #### LAB [address] [address] Jack Mendoza M.D. [id number] Ketones Ql (U) Negative Normal Negative [facility] Comment on above: Order Comment: Micro scopic examination is performed on all urinalysis samples and only positive findings are reported. The test for blood on the chemical analytic portion of urinalysis may also be positive due to hemoglobinuria and myoglobinuria and if red blood cells are present they are quantified by microscopic examination. Performed By: #### 4 6625 #### LAB [address] [address] Jack Mendoza M.D. [id number] Leukocyte esterase Test strip Ql (U) Negative Normal Negative [facility] Comment on above: Order Comment: Micro scopic examination is performed on all urinalysis samples and only positive findings are reported. The test for blood on the chemical analytic portion of urinalysis may also be positive due to hemoglobinuria and myoglobinuria and if red blood cells are present they are quantified by microscopic examination. Performed By: #### 4 6625 #### LAB [address] [address] Jack Mendoza M.D. [id number] NITRITE, URINE Negative Normal Negative [facility] Comment on above: Order Comment: Micro scopic examination is performed on all urinalysis samples and only positive findings are reported. The test for blood on the chemical analytic portion of urinalysis may also be positive due to hemoglobinuria and myoglobinuria and if red blood cells are present they are quantified by microscopic examination. Performed By: #### 4 6625 #### LAB [address] [address] Jack Mendoza M.D. [id number] pH (U) 5.5 [pH] Normal 5.0-7.0 [facility] Comment on above: Order Comment: Micro scopic examination is performed on all urinalysis samples and only positive findings are reported. The test for blood on the chemical analytic portion of urinalysis may also be positive due to hemoglobinuria and myoglobinuria and if red blood cells are present they are quantified by microscopic examination. Performed By: #### 4 6625 ####[facility] [address] [address] Jack Mendoza M.D. [id number] PROTEIN, URINE Negative Normal Negative [facility] Comment on above: Order Comment: Micro scopic examination is performed on all urinalysis samples and only positive findings are reported. The test for blood on the chemical analytic portion of urinalysis may also be positive due to hemoglobinuria and myoglobinuria and if red blood cells are present they are quantified by microscopic examination. Performed By: #### 4 6625 #### LAB [address] [address] Jack Mendoza M.D. [id number] RBC LM.HPF (Urine sed) [#/Area] 1 /[HPF] Normal 0-3 [facility] Comment on above: Order Comment: Micro scopic examination is performed on all urinalysis samples and only positive findings are reported. The test for blood on the chemical analytic portion of urinalysis may also be positive due to hemoglobinuria and myoglobinuria and if red blood cells are present they are quantified by microscopic examination. Performed By: #### 4 6625 ####[facility] [address] [address] Jack Mendoza M.D. [id number] Specific gravity (U) [Rel density] 1.014 Normal 1.005-1.025 [facility] Comment on above: Order Comment: Micro scopic examination is performed on all urinalysis samples and only positive findings are reported. The test for blood on the chemical analytic portion of urinalysis may also be positive due to hemoglobinuria and myoglobinuria and if red blood cells are present they are quantified by microscopic examination. Performed By: #### 4 6625 #### LAB [address] [address] Jack Mendoza M.D. [id number] TRANSITIONAL EPITHELIAL < Normal 0-1 [facility] Comment on above: Order Comment: Micro scopic examination is performed on all urinalysis samples and only positive findings are reported. The test for blood on the chemical analytic portion of urinalysis may also be positive due to hemoglobinuria and myoglobinuria and if red blood cells are present they are quantified by microscopic examination. Performed By: #### 4 6625 #### LAB [address] [address] Jack Mendoza M.D. [id number] UROBILINOGEN, URINE <2.0 Normal <2.0 [facility] Comment on above: Order Comment: Micro scopic examination is performed on all urinalysis samples and only positive findings are reported. The test for blood on the chemical analytic portion of urinalysis may also be positive due to hemoglobinuria and myoglobinuria and if red blood cells are present they are quantified by microscopic examination. Performed By: #### 4 6625 #### LAB [address] [address] Jack Mendoza M.D. [id number] WBC, URINE < Normal 0-5 [facility] Comment on above: Order Comment: Micro scopic examination is performed on all urinalysis samples and only positive findings are reported. The test for blood on the chemical analytic portion of urinalysis may also be positive due to hemoglobinuria and myoglobinuria and if red blood cells are present they are quantified by microscopic examination. Performed By: #### 4 6625 #### LAB [address] [address] Jack Mendoza M.D. [id number] US RENAL AND BLADDERon 02-11 US RENAL AND BLADDER Normal [facility] Comment on above: Order Comment: Injur y/Trauma or Illness?:Illness/OtherHow long have you had these symptoms (acute/chronic)?:AcuteReason for exam?:akiHistory of cancer?:uSurgeries, chemotherapy, or radiation?:uType of Exam?:InitialAdditional signs and symptoms?:none VOLATILE PANELon 02-11-2025 ACETONE QUANT, BLOOD <10 Normal [facility] Comment on above: Order Comment: This Gas Chromatography test was developed and its performance characteristics determined by [facility]ology [facility] at [facility]. It has not been cleared or approved by the FDA. The laboratory is regulated under CLIA as qualified to perform high-complexity testing. This test is used for clinical purposes. It should not be regarded as investigational or for research.Test performed by:[facility] Reference [address] [place] [address] Performed By: #### 4 6683 #### LAB [address] [place] [address] Jack Mendoza M.D. [id number] ACETONE, BLOOD Not detected Normal Not Detected [facility] Comment on above: Order Comment: This Gas Chromatography test was developed and its performance characteristics determined by [facility]ology [facility] at [facility]. It has not been cleared or approved by the FDA. The laboratory is regulated under CLIA as qualified to perform high-complexity testing. This test is used for clinical purposes. It should not be regarded as investigational or for research.Test performed by:[facility] Reference [address] [place] [id number] Performed By: #### 4 6683 #### LAB [address] [place] [address] Jack Mendoza M.D. [id number] Ethanol [Mass/Vol] Not detected Normal Not Detected [facility] Comment on above: Order Comment: This Gas Chromatography test was developed and its performance characteristics determined by Toxicology Laboratory at [facility]. It has not been cleared or approved by the FDA. The laboratory is regulated under CLIA as qualified to perform high-complexity testing. This test is used for clinical purposes. It should not be regarded as investigational or for research.Test performed by:[facility] Reference [address] [place] [address] Performed By: #### 4 6683 ####[facility] LAB [address] [address] Jack Mendoza M.D. [id number] ETHANOL QUANT, BLOOD <10 Normal [facility] Comment on above: Order Comment: This Gas Chromatography test was developed and its performance characteristics determined by Toxicology Laboratory at [facility]. It has not been cleared or approved by the FDA. The laboratory is regulated under CLIA as qualified to perform high-complexity testing. This test is used for clinical purposes. It should not be regarded as investigational or for research.Test performed by:[facility] Reference [address] [place], [place] [id number] Performed By: #### 4 6683 ####[facility] LAB [address] [place] [address] Jack Mendoza M.D. [id number] ISOPROPANOL QUANT, BLOOD <10 Normal [facility] Comment on above: Order Comment: This Gas Chromatography test was developed and its performance characteristics determined by Toxicology [facility] at [facility]. It has not been cleared or approved by the FDA. The laboratory is regulated under CLIA as qualified to perform high-complexity testing. This test is used for clinical purposes. It should not be regarded as investigational or for research.Test performed by:[facility] Reference [address] [place] [address] Performed By: #### 4 6683 ####[facility] LAB [address] [place] [address] Jack Mendoza M.D. [id number] ISOPROPANOL, BLOOD Not detected Normal Not Detected [facility] Comment on above: Order Comment: This Gas Chromatography test was developed and its performance characteristics determined by Toxicology Laboratory at [facility]. It has not been cleared or approved by the FDA. The laboratory is regulated under CLIA as qualified to perform high-complexity testing. This test is used for clinical purposes. It should not be regarded as investigational or for research.Test performed by:[facility] Reference [address] [place], [place] [id number] Performed By: #### 4 6683 ####[facility] LAB [address] [place], [place] [address] Jack Mendoza M.D. [id number] METHANOL QUANT, BLOOD <10 Normal [facility] Comment on above: Order Comment: This Gas Chromatography test was developed and its performance characteristics determined by Toxicology Laboratory at [facility]. It has not been cleared or approved by the FDA. The laboratory is regulated under CLIA as qualified to perform high-complexity testing. This test is used for clinical purposes. It should not be regarded as investigational or for research.Test performed by:[facility] Reference [address] [place] [address] Performed By: #### 4 6683 #### LAB [address] [address] Jack Mendoza M.D. [id number] METHANOL, BLOOD Not detected Normal Not Detected [facility] Comment on above: Order Comment: This Gas Chromatography test was developed and its performance characteristics determined by T[facility]ology Laboratory at [facility]. It has not been cleared or approved by the FDA. The laboratory is regulated under CLIA as qualified to perform high-complexity testing. This test is used for clinical purposes. It should not be regarded as investigational or for research.Test performed by:[facility] Reference [address] [place] [address] Performed By: #### 4 6683 #### LAB [address] [place], [place] [address] Jack Mendoza M.D. [id number] XR ABDOMEN /KUB/FLAT PLATE/1 VIEWon 02-11-2025 XR ABDOMEN /KUB/FLAT PLATE/1 VIEW [facility] Comment on above: Order Comment: Injur y/Trauma or Illness?:Illness/OtherHow long have you had these symptoms (acute/chronic)?:AcuteReason for exam?:OG PLACEMENTHistory of cancer?:uSurgeries, chemotherapy, or radiation?:uType of Exam?:InitialAdditional signs and symptoms?:. XR CHEST PA/APon 02-11-2025 XR CHEST PA/AP [facility] Comment on above: Order Comment: Injur y/Trauma or Illness?:Illness/OtherHow long have you had these symptoms (acute/chronic)?:AcuteReason for exam?:ETT PLACEMENTHistory of cancer?:uSurgeries, chemotherapy, or radiation?:uType of Exam?:InitialAdditional signs and symptoms?:. Order Comment: Injur y/Trauma or Illness?:Illness/OtherHow long have you had these symptoms (acute/chronic)?:AcuteReason for exam?:amsHistory of cancer?:uSurgeries, chemotherapy, or radiation?:uType of Exam?:InitialAdditional signs and symptoms?:. No Panel Informationon 12-21 [facility] Cecilia Gonzales DPM 12/23/2024 8:04 PM [...] Response to treatment: procedure was tolerated well [facility] Wound Debridementon 12-22-19 Cecilia Gonzales DPM [...] Response to treatment: procedure was tolerated well [facility] WOUND AEROBIC CULTUREon 10-21 WOUND AEROBIC CULTURE AEROBIC CULTURE Light Growth Normal Skin Sobeida GRAM STAIN RESULT Many WBC Rare Gram Positive Cocci Normal [facility] Comment on above: Order Comment: Origi jesu ordered as [facility] specimen; reordered as [facility] specimen to be ran at [facility] Microbiology. Performed By: #### 4 4060 ####[facility] [address] [place], [place] [address] Venancio Richardson M.D. [id number] XR FOOT RIGHT 3+ VIEWS (JEREMIAS DARSajan)on 11-09-2024 XR FOOT RIGHT 3+ VIEWS (STANDARD) Normal [facility] Comment on above: Order Comment: Injur y/Trauma or Illness?:Illness/OtherHow long have you had these symptoms (acute/chronic)?:ChronicReason for exam?:plantar medial ulcer probes down to boneHistory of cancer?:uSurgeries, chemotherapy, or radiation?:uType of Exam?:OngoingAdditional signs and symptoms?:u CBC Auto Differentialon Erythrocyte distribution width (RBC) [Entitic vol] 16.4 % High 11.6 - 14.8 % [facility] Hematocrit (Bld) [Volume fraction] 34.3 % Low 41.0 - 53.0 % [facility] Hemoglobin (Bld) [Mass/Vol] 10 g/dL Low 13.5 - 17.5 g/dL [facility] MCH (RBC) [Entitic mass] 20.1 pg Low 26.0 - 34.0 pg [facility] MCHC (RBC) [Mass/Vol] 29.2 g/dL Low 31.0 - 37.0 g/dL [facility] MCV (RBC) [Entitic vol] 68.9 fL Low 80.0 - 100.0 fL [facility] Nucleated RBC (Bld) [#/Vol] 0 10*3/uL [facility] Nucleated RBC/100 WBC (Bld) [Ratio] 0 % [facility] Platelets (Bld) [#/Vol] 107 10*3/uL Low [facility] RBC (Bld) [#/Vol] 4.98 10*6/uL [facility] WBC (Bld) [#/Vol] 4.11 10*3/uL Low [facility] CBC WITH AUTO DIFFERENTIALon 10-24-2024 AUTO NRBC 0.0 % Normal [facility] Comment on above: Performed By: #### L [id number] #### LAB [address] [address] Jack Mendoza M.D. [id number] AUTO NRBC ABS COUNT 0.00 K/mcL Normal 0.00-0.00 [facility] Comment on above: Performed By: #### L [id number] ####[facility] LAB [address] [address] Jack Mendoza M.D. [id number] Erythrocyte distribution width (RBC) [Ratio] 16.4 % High 11.6-14.8 [facility] Comment on above: Performed By: #### L [id number] #### LAB [address] [address] Jack Mendoza M.D. [id number] Hematocrit (Bld) [Volume fraction] 34.3 % Low 41.0-53.0 [facility] Comment on above: Performed By: #### L [id number] ####[facility] LAB [address] [address] Jack Mendoza M.D. [id number] Hemoglobin (Bld) [Mass/Vol] 10.0 g/dL Low 13.5-17.5 [facility] Comment on above: Performed By: #### L [id number] ####[facility] LAB [address] [address] Jack Mendoza M.D. [id number] MCH (RBC) [Entitic mass] 20.1 pg Low 26.0-34.0 [facility] Comment on above: Performed By: #### L [id number] ####[facility] LAB [address] [address] Jack Mendoza M.D. [id number] MCV (RBC) [Entitic vol] 68.9 fL Low 80.0-100.0 [facility] Comment on above: Performed By: #### L [id number] #### LAB [address] [address] Jack Mendoza M.D. [id number] MEAN CORPUSCULAR HEMOGLOBIN CONC 29.2 g/dL Low 31.0-37.0 [facility] Comment on above: Performed By: #### L [id number] ####[facility] LAB [address] [address] Jack Mendoza M.D. [id number] Platelets (Bld) [#/Vol] 107 10*3/uL Low 150-400 [facility] Comment on above: Performed By: #### L [id number] ####[facility] LAB [address] [address] Jack Mendoza M.D. [id number] RBC (Bld) [#/Vol] 4.98 10*6/uL Normal 4.50-5.90 [facility] Comment on above: Performed By: #### L [id number] #### LAB [address] [address] Jack Mendoza M.D. [id number] WBC (Bld) [#/Vol] 4.11 10*3/uL Low 4.50-11.00 [facility] Comment on above: Performed By: #### L [id number] #### LAB [address] [place] [address] Jack Mendoza M.D. [id number] CBC and Diff Morphologyon Ovalocytes LM Ql (Bld) Many [facility] Platelets LM Ql (Bld) Decreased Abnormal Normal [facility] RBC morphology finding Nom (Bld) See Comment [facility] Comment on above: RBC Indices confirme d with manual peripheral smear review. Schistocytes Auto Ql (Bld) Few Abnormal See Comment [facility] Stomatocytes LM Ql (Bld) Few [facility] Target cells LM Ql (Bld) Moderate [facility] Disch Summon 10-24-2024 Disch Summ Normal [facility] MANUAL DIFFERENTIALon 2024 BASOPHILS - ABS (DIFF) 0.04 K/mcL Normal 0.00-0.30 [facility] Comment on above: Performed By: #### 4 [id number] #### LAB [address] [address] Jack Mendoza M.D. [id number] BASOPHILS - REL (DIFF) 0.9 % [facility] Comment on above: Performed By: #### 4 54 #### LAB [address] [address] Jack Mendoza M.D. [id number] EOSINOPHILS - ABS (DIFF) 0.21 K/mcL Normal 0.00-0.50 [facility] Comment on above: Performed By: #### 4 5453 #### LAB [address] [address] Jack Mendoza M.D. [id number] EOSINOPHILS - REL (DIFF) 5.1 % [facility] Comment on above: Performed By: #### 4 3375 #### LAB [address] [address] Jack Mendoza M.D. [id number] LYMPHOCYTE ATYPICAL - REL (DIFF) 2.5 % [facility] Comment on above: Performed By: #### 4 0429 #### LAB [address] [address] Jack Mendoza M.D. [id number] LYMPHOCYTES - ABS (DIFF) 0.97 K/mcL Normal 0.90-4.00 [facility] Comment on above: Performed By: #### 4 6417 #### LAB [address] [address] Jack Mendoza M.D. [id number] LYMPHOCYTES - REL (DIFF) 21.2 % [facility] Comment on above: Performed By: #### 4 0446 #### LAB [address] [address] Jack Mendoza M.D. [id number] METAMYELOCYTES-REL (DIFF) 0.8 % [facility] Comment on above: Performed By: #### 4 9024 #### LAB [address] [address] Jack Mendoza M.D. [id number] MONOCYTES - ABS (DIFF) 0.24 K/mcL Low 0.30-0.90 [facility] Comment on above: Performed By: #### 4 5456 #### LAB [address] [address] Jack Mendoza M.D. [id number] MONOCYTES - REL (DIFF) 5.9 % Normal [facility] Comment on above: Performed By: #### 4 5456 #### LAB [address] [address] Jack Mendoza M.D. [id number] NEUTROPHILS - ABS (DIFF) 2.65 K/mcL Normal 1.70-7.00 [facility] Comment on above: Performed By: #### 4 5456 #### LAB [address] [address] Jack Mendoza M.D. [id number] NEUTROPHILS - REL (DIFF) 63.6 % Normal [facility] Comment on above: Performed By: #### 4 5456 #### LAB [address] [address] Jack Mendoza M.D. [id number] MORPHOLOGYon 10-24-2024 OVAL SCAN Many Normal [facility] Comment on above: Performed By: #### L [id number] ####[facility] LAB [address] [address] Jack Mendoza M.D. [id number] PLATELET ESTIMATE Decreased Abnormal Normal [facility] Comment on above: Performed By: #### L [id number] ####[facility] LAB [address] [address] Jack Mendoza M.D. [id number] RBC MORPH SCAN See Comment Normal [facility] Comment on above: Result Comment: RBC Indices confirmed with manual peripheral smear review. Performed By: #### L [id number] ####[facility] LAB [address] [address] Jack Mendoza M.D. [id number] SCHISTO SCAN Few Abnormal See Comment [facility] Comment on above: Performed By: #### L [id number] ####[facility] LAB [address] [place], [place] [address] Jack Mendoza M.D. [id number] STOMATOCYTES Few Normal [facility] Comment on above: Performed By: #### L [id number] ####[facility] LAB [address] [place], [place] [address] Jack Mendoza M.D. [id number] TARGET CELL SCAN Moderate Normal [facility] Comment on above: Performed By: #### L [id number] ####[facility] LAB [address] [place], [place] [address] Jack Mendoza M.D. [id number] Manual Differential panel (B ld)on 10-24-2024 Basophils (Bld) [#/Vol] 0.04 10*3/uL [facility] Basophils/100 WBC (Bld) 0.9 % [facility] Eosinophils (Bld) [#/Vol] 0.21 10*3/uL [facility] Eosinophils/100 WBC (Bld) 5.1 % [facility] Lymphocytes (Bld) [#/Vol] 0.97 10*3/uL [facility] Lymphocytes/100 WBC (Bld) 21.2 % [facility] Metamyelocytes/100 WBC (Bld) 0.8 % [facility] Monocytes (Bld) [#/Vol] 0.24 10*3/uL Low [facility] Monocytes/100 WBC (Bld) 5.9 % [facility] Neutrophils (Bld) [#/Vol] 2.65 10*3/uL [facility] Neutrophils/100 WBC (Bld) 63.6 % [facility] Variant lymphocytes/100 WBC (Bld) 2.5 % [facility] No Panel Informationon 10-24 Interpretation and review of laboratory results Abnormal [facility] CBC Auto Differentialon Erythrocyte distribution width (RBC) [Entitic vol] 17.3 % High 11.6 - 14.8 % [facility] Hematocrit (Bld) [Volume fraction] 38 % Low 41.0 - 53.0 % [facility] Hemoglobin (Bld) [Mass/Vol] 11.4 g/dL Low 13.5 - 17.5 g/dL [facility] MCH (RBC) [Entitic mass] 20.7 pg Low 26.0 - 34.0 pg [facility] MCHC (RBC) [Mass/Vol] 30 g/dL Low 31.0 - 37.0 g/dL [facility] MCV (RBC) [Entitic vol] 68.8 fL Low 80.0 - 100.0 fL [facility] Nucleated RBC (Bld) [#/Vol] 0 10*3/uL [facility] Nucleated RBC/100 WBC (Bld) [Ratio] 0 % [facility] Platelet mean volume (Bld) [Entitic vol] 9.3 fL Low 9.4 - 12.4 fL [facility] Platelets (Bld) [#/Vol] 118 10*3/uL Low [facility] RBC (Bld) [#/Vol] 5.52 10*6/uL [facility] ealth WBC (Bld) [#/Vol] 5.5 10*3/uL [facility] alth CBC WITH AUTO DIFFERENTIALon 10-23-2024 AUTO NRBC 0.0 % Normal [facility] Comment on above: Performed By: #### L [id number] #### LAB [address] [address] Jack Mendoza M.D. [id number] AUTO NRBC ABS COUNT 0.00 K/mcL Normal 0.00-0.00 [facility] Comment on above: Performed By: #### L [id number] #### LAB [address] [address] Jack Mendoza M.D. [id number] Erythrocyte distribution width (RBC) [Ratio] 17.3 % High 11.6-14.8 [facility] Comment on above: Performed By: #### L [id number] #### LAB [address] [address] Jack Mendoza M.D. [id number] Hematocrit (Bld) [Volume fraction] 38.0 % Low 41.0-53.0 [facility] Comment on above: Performed By: #### L [id number] #### LAB [address] [address] Jack Mendoza M.D. [id number] Hemoglobin (Bld) [Mass/Vol] 11.4 g/dL Low 13.5-17.5 [facility] Comment on above: Performed By: #### L [id number] ####[facility] LAB [address] [address] Jack Mendoza M.D. [id number] MCH (RBC) [Entitic mass] 20.7 pg Low 26.0-34.0 [facility] Comment on above: Performed By: #### L [id number] ####[facility] LAB [address] [address] Jack Mendoza M.D. [id number] MCV (RBC) [Entitic vol] 68.8 fL Low 80.0-100.0 [facility] Comment on above: Performed By: #### L [id number] ####[facility] [address] [address] Jack Mendoza M.D. [id number] MEAN CORPUSCULAR HEMOGLOBIN CONC 30.0 g/dL Low 31.0-37.0 [facility] Comment on above: Performed By: #### L [id number] ####[facility] LAB [address] [address] Jack Mendoza M.D. [id number] Platelet mean volume (Bld) [Entitic vol] 9.3 fL Low 9.4-12.4 [facility] Comment on above: Performed By: #### L [id number] ####[facility] LAB [address] [place] [address] Jack Mendoza M.D. [id number] Platelets (Bld) [#/Vol] 118 10*3/uL Low 150-400 [facility] Comment on above: Performed By: #### L [id number] ####[facility] LAB [address] [address] Jack Mendoza M.D. [id number] RBC (Bld) [#/Vol] 5.52 10*6/uL Normal 4.50-5.90 [facility] Comment on above: Performed By: #### L [id number] ####[facility] LAB [address] [place] [address] Jack Mendoza M.D. [id number] WBC (Bld) [#/Vol] 5.50 10*3/uL Normal 4.50-11.00 [facility] Comment on above: Performed By: #### L [id number] #### LAB [address] [address] Jack Mendoza M.D. [id number] CBC and Diff Morphologyon Neutrophils.vacuolat ed LM Ql (Bld) Present [facility] Ovalocytes LM Ql (Bld) Many [facility] Platelets Large Auto Ql (Bld) Few [facility] Platelets LM Ql (Bld) Decreased Abnormal Normal [facility] Polychromasia LM Ql (Bld) Few [facility] RBC morphology finding Nom (Bld) See Comment [facility] Comment on above: RBC Indices confirme d with manual peripheral smear review. Schistocytes Auto Ql (Bld) Few Abnormal See Comment [facility] Target cells LM Ql (Bld) Many [facility] MANUAL DIFFERENTIALon 2024 BASOPHILS - ABS (DIFF) 0.00 K/mcL Normal 0.00-0.30 [facility] Comment on above: Performed By: #### 4 5456 #### LAB [address] [address] Jack Mendoza M.D. [id number] BASOPHILS - REL (DIFF) 0.0 % Normal [facility] Comment on above: Performed By: #### 4 5456 #### LAB [address] [address] Jack Mendoza M.D. [id number] EOSINOPHILS - ABS (DIFF) 0.29 K/mcL Normal 0.00-0.50 [facility] Comment on above: Performed By: #### 4 5456 #### LAB [address] [address] Jack Mendoza M.D. [id number] EOSINOPHILS - REL (DIFF) 5.3 % Normal [facility] Comment on above: Performed By: #### 4 5456 #### LAB [address] [address] Jack Mendoza M.D. [id number] LYMPHOCYTES - ABS (DIFF) 0.63 K/mcL Low 0.90-4.00 [facility] Comment on above: Performed By: #### 4 5456 #### LAB [address] [address] Jack Mendoza M.D. [id number] LYMPHOCYTES - REL (DIFF) 11.4 % Normal [facility] Comment on above: Performed By: #### 4 5456 #### LAB [address] [address] Jack Mendoza M.D. [id number] MONOCYTES - ABS (DIFF) 0.53 K/mcL Normal 0.30-0.90 [facility] Comment on above: Performed By: #### 4 5456 #### LAB [address] [address] Jack Mendoza M.D. [id number] MONOCYTES - REL (DIFF) 9.6 % Normal [facility] Comment on above: Performed By: #### 4 5456 #### LAB [address] [address] Jack Mendoza M.D. [id number] NEUTROPHILS - ABS (DIFF) 4.05 K/mcL Normal 1.70-7.00 [facility] Comment on above: Performed By: #### 4 5456 #### LAB [address] [address] Jack Mendoza M.D. [id number] NEUTROPHILS - REL (DIFF) 73.7 % [facility] Comment on above: Performed By: #### 4 5456 #### LAB [address] [address] Jack Mendoza M.D. [id number] MORPHOLOGYon 10-23-2024 OVAL SCAN Many Normal [facility] Comment on above: Performed By: #### L [id number] ####[facility] LAB [address] [address] Jack Mendoza M.D. [id number] PLATELET ESTIMATE Decreased Abnormal Normal [facility] Comment on above: Performed By: #### L AB295 ####[facility] LAB [address] [address] Jack Mendoza M.D. [id number] PLATELETS LARGE Few Normal [facility] Comment on above: Performed By: #### L [id number] ####[facility] LAB [address] [place], [place] [address] Jack Mendoza M.D. [id number] POLY SCAN Few Normal [facility] Comment on above: Performed By: #### L [id number] ####[facility] LAB [address] [address] Jack Mendoza M.D. [id number] RBC MORPH SCAN See Comment Normal [facility] Comment on above: Result Comment: RBC Indices confirmed with manual peripheral smear review. Performed By: #### L [id number] ####[facility] LAB [address] [address] Jack Mendoza M.D. [id number] SCHISTO SCAN Few Abnormal See Comment [facility] Comment on above: Performed By: #### L AB295 ####[facility] LAB [address] [address] Jack Mendoza M.D. [id number] TARGET CELL SCAN Many Normal [facility] Comment on above: Performed By: #### L [id number] ####[facility] LAB [address] [address] Jack Mendoza M.D. [id number] VACUOLATED GRANULOCYTES Present Normal [facility] Comment on above: Performed By: #### L [id number] ####[facility] [address] [address] Jack Mendoza M.D. [id number] Manual Differential panel (B ld)on 10-23-2024 Basophils (Bld) [#/Vol] 0 10*3/uL [facility] Basophils/100 WBC (Bld) 0 % [facility] Eosinophils (Bld) [#/Vol] 0.29 10*3/uL [facility] Eosinophils/100 WBC (Bld) 5.3 % [facility] Lymphocytes (Bld) [#/Vol] 0.63 10*3/uL Low [facility] Lymphocytes/100 WBC (Bld) 11.4 % [facility] Monocytes (Bld) [#/Vol] 0.53 10*3/uL [facility] Monocytes/100 WBC (Bld) 9.6 % [facility] Neutrophils (Bld) [#/Vol] 4.05 10*3/uL [facility] Neutrophils/100 WBC (Bld) 73.7 % [facility] No Panel Informationon 10-23 Interpretation and review of laboratory results Abnormal [facility] BASIC METABOLIC PANELon Anion gap [Moles/Vol] 12 mmol/L Normal 10-20 [facility] Comment on above: Order Comment: [facility] has implemented the eGFR calculation approach that does not have a coefficient for race that conforms to the NKF-ASN Task Force Recommendations. Performed By: #### 4 6124 #### LAB [address] [address] Jack Mendoza M.D. [id number] Calcium [Mass/Vol] 8.9 mg/dL Normal 8.4-10.2 [facility] Comment on above: Order Comment: [facility] has implemented the eGFR calculation approach that does not have a coefficient for race that conforms to the NKF-ASN Task Force Recommendations. Performed By: #### 4 6124 #### LAB [address] [address] Jack Mendoza M.D. [id number] Chloride [Moles/Vol] 92 mmol/L Low 98-108 [facility] Comment on above: Order Comment: [facility] has implemented the eGFR calculation approach that does not have a coefficient for race that conforms to the NKF-ASN Task Force Recommendations. Performed By: #### 4 6124 #### LAB [address] [address] Jack Mendoza M.D. [id number] Creatinine [Mass/Vol] 0.72 mg/dL Normal 0.50-1.30 [facility] Comment on above: Order Comment: [facility] has implemented the eGFR calculation approach that does not have a coefficient for race that conforms to the NKF-ASN Task Force Recommendations. Performed By: #### 4 6124 #### LAB [address] [address] Jack Mendoza M.D. [id number] EGFR 106 mL/min/1.73 m2 Normal >=60 [facility] Comment on above: Order Comment: [facility] has implemented the eGFR calculation approach that does not have a coefficient for race that conforms to the NKF-ASN Task Force Recommendations. Result Comment: Ashley mated GFR was calculated using the 2020 CKD-EPI creatinine equation. Performed By: #### 4 6124 #### LAB [address] [address] Jack Mendoza M.D. [id number] Glucose [Mass/Vol] 121 mg/dL High 65-99 [facility] Comment on above: Order Comment: [facility] has implemented the eGFR calculation approach that does not have a coefficient for race that conforms to the NKF-ASN Task Force Recommendations. Performed By: #### 4 6124 ####[facility] LAB [address] [address] Jack Mendoza M.D. [id number] HCO3 (Bld) [Moles/Vol] 34 mmol/L High 21-32 [facility] Comment on above: Order Comment: [facility] has implemented the eGFR calculation approach that does not have a coefficient for race that conforms to the NKF-ASN Task Force Recommendations. Performed By: #### 4 6124 ####[facility] LAB [address] [address] Jack Mendoza M.D. [id number] Potassium [Moles/Vol] 4.4 mmol/L Normal 3.5-5.1 [facility] Comment on above: Order Comment: [facility] has implemented the eGFR calculation approach that does not have a coefficient for race that conforms to the NKF-ASN Task Force Recommendations. Performed By: #### 4 6124 ####[facility] LAB [address] [address] Jack Mendoza M.D. [id number] Sodium [Moles/Vol] 134 mmol/L Low 135-145 [facility] Comment on above: Order Comment: [facility] has implemented the eGFR calculation approach that does not have a coefficient for race that conforms to the NKF-ASN Task Force Recommendations. Performed By: #### 4 6124 #### LAB [address] [place], [place] [address] Jack Mendoza M.D. [id number] Urea nitrogen [Mass/Vol] 21 mg/dL Normal 8-25 [facility] Comment on above: Order Comment: [facility] has implemented the eGFR calculation approach that does not have a coefficient for race that conforms to the NKF-ASN Task Force Recommendations. Performed By: #### 4 6124 #### LAB [address] [place], [place] [address] Jack Mendoza M.D. [id number] Urea nitrogen/Creatinine [Mass ratio] 29.2 mg/mg High 10.0-20.0 [facility] Comment on above: Order Comment: [facility] has implemented the eGFR calculation approach that does not have a coefficient for race that conforms to the NKF-ASN Task Force Recommendations. Performed By: #### 4 6124 #### LAB [address] [place], [place] [address] Jack Mendoza M.D. [id number] Basic metabolic 2000 panelon 10-22-2024 Anion gap [Moles/Vol] 12 mmol/L 10 - 20 mmol/L [facility] Calcium [Mass/Vol] 8.9 mg/dL 8.4 - 10. 2 mg/dL [facility] Chloride [Moles/Vol] 92 mmol/L Low 98 - 10 8 mmol/L [facility] Creatinine [Mass/Vol] 0.72 mg/dL 0.50 - 1.30 mg/dL [facility] GFR/1.73 sq M.predicted CKD-EPI (S/P/Bld) [Vol rate/Area] 106 - PINF [facility] Comment on above: Estimated GFR was ca lculated using the 2020 CKD-EPI creatinine equation. Glucose [Mass/Vol] 121 mg/dL High 65 - 99 mg/dL [facility] HCO3 [Moles/Vol] 34 mmol/L High 21 - 32 mmol/L [facility] Interpretation and review of laboratory results Abnormal [facility] Potassium [Moles/Vol] 4.4 mmol/L 3.5 - 5.1 mmol/L [facility] Sodium [Moles/Vol] 134 mmol/L Low 135 - 145 mmol/L [facility] Urea nitrogen [Mass/Vol] 21 mg/dL 8 - 25 mg/dL [facility] Urea nitrogen/Creatinine [Mass ratio] 29.2 mg/mg High 10.0 - 20.0 [facility] has implemented the eGFR calculation approach that does not have a coefficient for race that conforms to the NKF-ASN Task Force Recommendations. [facility] CBC Auto Differentialon Basophils (Bld) [#/Vol] 0.02 10*3/uL [facility] Basophils/100 WBC (Bld) 0.4 % [facility] Eosinophils (Bld) [#/Vol] 0.16 10*3/uL [facility] Eosinophils/100 WBC (Bld) 3.5 % [facility] Erythrocyte distribution width (RBC) [Entitic vol] 17 % High 11.6 - 14.8 % [facility] Hematocrit (Bld) [Volume fraction] 38 % Low 41.0 - 53.0 % [facility] Hemoglobin (Bld) [Mass/Vol] 11.2 g/dL Low 13.5 - 17.5 g/dL [facility] Immature granulocytes (Bld) [#/Vol] 0.03 10*3/uL [facility] Immature granulocytes/100 WBC (Bld) 0.7 % [facility] Comment on above: The IG parameter is the percentage of metamyelocytes, myelocytes and promyelocytes. An immature granulocyte count (IG) of 1% or more suggests the possibility of infection, an IG count of 3% is very likely related to an infection. Interpretation and review of laboratory results Abnormal [facility] Lymphocytes (Bld) [#/Vol] 0.66 10*3/uL Low [facility] Lymphocytes/100 WBC (Bld) 14.6 % [facility] MCH (RBC) [Entitic mass] 20.2 pg Low 26.0 - 34.0 pg [facility] MCHC (RBC) [Mass/Vol] 29.5 g/dL Low 31.0 - 37.0 g/dL [facility] MCV (RBC) [Entitic vol] 68.5 fL Low 80.0 - 100.0 fL [facility] Monocytes (Bld) [#/Vol] 0.71 10*3/uL [facility] Monocytes/100 WBC (Bld) 15.7 % [facility] Neutrophils (Bld) [#/Vol] 2.95 10*3/uL [facility] Neutrophils/100 WBC (Bld) 65.1 % [facility] Nucleated RBC (Bld) [#/Vol] 0 10*3/uL [facility] Nucleated RBC/100 WBC (Bld) [Ratio] 0 % [facility] Platelets (Bld) [#/Vol] 120 10*3/uL Low [facility] RBC (Bld) [#/Vol] 5.55 10*6/uL [facility] WBC (Bld) [#/Vol] 4.53 10*3/uL [facility] CBC WITH AUTO DIFFERENTIALon 10-22-2024 AUTO NRBC 0.0 % Normal [facility] Comment on above: Performed By: #### L [id number] #### LAB [address] [place] [address] Jack Mendoza M.D. [id number] AUTO NRBC ABS COUNT 0.00 K/mcL Normal 0.00-0.00 [facility] Comment on above: Performed By: #### L [id number] #### LAB [address] [address] Jack Mendoza M.D. [id number] BASOPHILS ABSOLUTE COUNT 0.02 K/mcL Normal 0.00-0.30 [facility] Comment on above: Performed By: #### L [id number] #### LAB [address] [place] [address] Jack Mendoza M.D. [id number] Basophils/100 WBC (Bld) 0.4 % Normal [facility] Comment on above: Performed By: #### L [id number] #### LAB [address] [address] Jack Mendoza M.D. [id number] Eosinophils (Bld) [#/Vol] 0.16 10*3/uL Normal 0.00-0.50 [facility] Comment on above: Performed By: #### L [id number] #### LAB [address] [place] [address] Jack Mendoza M.D. [id number] Eosinophils/100 WBC (Bld) 3.5 % Normal [facility] Comment on above: Performed By: #### L [id number] #### LAB [address] [address] Jack Mendoza M.D. [id number] Erythrocyte distribution width (RBC) [Ratio] 17.0 % High 11.6-14.8 [facility] Comment on above: Performed By: #### L [id number] #### LAB [address] [address] Jack Mendoza M.D. [id number] Hematocrit (Bld) [Volume fraction] 38.0 % Low 41.0-53.0 [facility] Comment on above: Performed By: #### L [id number] #### LAB [address] [address] Jack Mendoza M.D. [id number] Hemoglobin (Bld) [Mass/Vol] 11.2 g/dL Low 13.5-17.5 [facility] Comment on above: Performed By: #### L [id number] #### LAB [address] [address] Jack Mendoza M.D. [id number] IG ABSOLUTE 0.03 K/mcL Normal 0.00-0.30 [facility] Comment on above: Performed By: #### L [id number] #### LAB [address] [place] [address] Jack Mendoza M.D. [id number] IG PERCENT 0.70 % Normal [facility] Comment on above: Result Comment: The IG parameter is the percentage of metamyelocytes, myelocytes and promyelocytes. An immature granulocyte count (IG) of 1% or more suggests the possibility of infection, an IG count of 3% is very likely related to an infection. Performed By: #### L [id number] #### LAB [address] [place] [address] Jack Mendoza M.D. [id number] Lymphocytes (Bld) [#/Vol] 0.66 10*3/uL Low 0.90-4.00 [facility] Comment on above: Performed By: #### L [id number] #### LAB [address] [address] Jack Mendoza M.D. [id number] Lymphocytes/100 WBC (Bld) 14.6 % Normal [facility] Comment on above: Performed By: #### L [id number] #### LAB [address] [address] Jack Mendoza M.D. [id number] MCH (RBC) [Entitic mass] 20.2 pg Low 26.0-34.0 [facility] Comment on above: Performed By: #### L [id number] #### LAB [address] [address] Jack Mendoza M.D. [id number] MCV (RBC) [Entitic vol] 68.5 fL Low 80.0-100.0 [facility] Comment on above: Performed By: #### L [id number] #### LAB [address] [address] Jack Mendoza M.D. [id number] MEAN CORPUSCULAR HEMOGLOBIN CONC 29.5 g/dL Low 31.0-37.0 [facility] Comment on above: Performed By: #### L [id number] #### LAB [address] [address] Jack Mendoza M.D. [id number] Monocytes (Bld) [#/Vol] 0.71 10*3/uL Normal 0.30-0.90 [facility] Comment on above: Performed By: #### L [id number] #### LAB [address] [address] Jack Mendoza M.D. [id number] Monocytes/100 WBC (Bld) 15.7 % Normal [facility] Comment on above: Performed By: #### L [id number] #### LAB [address] [place] [address] Jack Mendoza M.D. [id number] NEUTROPHILS ABSOLUTE COUNT 2.95 K/mcL Normal 1.70-7.00 [facility] Comment on above: Performed By: #### L [id number] ####[facility] LAB [address] [address] Jack Mendoza M.D. [id number] Neutrophils/100 WBC (Bld) 65.1 % Normal [facility] Comment on above: Performed By: #### L [id number] ####[facility] LAB [address] [address] Jack Mnedoza M.D. [id number] Platelets (Bld) [#/Vol] 120 10*3/uL Low 150-400 [facility] Comment on above: Performed By: #### L [id number] ####[facility] LAB [address] [address] Jack Mendoza M.D. [id number] RBC (Bld) [#/Vol] 5.55 10*6/uL Normal 4.50-5.90 [facility] Comment on above: Performed By: #### L [id number] ####[facility] LAB [address] [address] Jack Mendoza M.D. [id number] WBC (Bld) [#/Vol] 4.53 10*3/uL Normal 4.50-11.00 [facility] Comment on above: Performed By: #### L [id number] ####[facility] LAB [address] [address] Jack Mendoza M.D. [id number] MAGNESIUM LEVELon 10-22-2024 Magnesium [Mass/Vol] 2.0 mg/dL Normal 1.6-2.4 [facility] Comment on above: Performed By: #### 4 6109 ####[facility] LAB [address] [address] Jack Mendoza M.D. [id number] Magnesium Levelon 10-22-2024 Magnesium [Mass/Vol] 2 mg/dL 1.6 - 2 .4 mg/dL [facility] Magnesium [Mass/Vol]on 10-22 Interpretation and review of laboratory results Normal [facility] No Panel Informationon 10-22 [facility] CBC Auto Differentialon Erythrocyte distribution width (RBC) [Entitic vol] 16.5 % High 11.6 - 14.8 % [facility] Hematocrit (Bld) [Volume fraction] 36.7 % Low 41.0 - 53.0 % [facility] Hemoglobin (Bld) [Mass/Vol] 10.9 g/dL Low 13.5 - 17.5 g/dL [facility] MCH (RBC) [Entitic mass] 20.6 pg Low 26.0 - 34.0 pg [facility] MCHC (RBC) [Mass/Vol] 29.7 g/dL Low 31.0 - 37.0 g/dL [facility] MCV (RBC) [Entitic vol] 69.5 fL Low 80.0 - 100.0 fL [facility] Nucleated RBC (Bld) [#/Vol] 0 10*3/uL [facility] Nucleated RBC/100 WBC (Bld) [Ratio] 0 % [facility] Platelet mean volume (Bld) [Entitic vol] 9.6 fL 9.4 - 12.4 fL [facility] Platelets (Bld) [#/Vol] 119 10*3/uL Low [facility] RBC (Bld) [#/Vol] 5.28 10*6/uL [facility] WBC (Bld) [#/Vol] 3.67 10*3/uL Low [facility] CBC WITH AUTO DIFFERENTIALon 10-21-2024 AUTO NRBC 0.0 % Normal [facility] Comment on above: Performed By: #### L [id number] ####[facility] LAB [address] [address] Jack Mendoza M.D. [id number] AUTO NRBC ABS COUNT 0.00 K/mcL Normal 0.00-0.00 [facility] Comment on above: Performed By: #### L [id number] ####[facility] LAB [address] [address] Jack Mendoza M.D. [id number] Erythrocyte distribution width (RBC) [Ratio] 16.5 % High 11.6-14.8 [facility] Comment on above: Performed By: #### L [id number] #### LAB [address] [address] Jack Mendoza M.D. [id number] Hematocrit (Bld) [Volume fraction] 36.7 % Low 41.0-53.0 [facility] Comment on above: Performed By: #### L [id number] #### LAB [address] [address] Jack Mendoza M.D. [id number] Hemoglobin (Bld) [Mass/Vol] 10.9 g/dL Low 13.5-17.5 [facility] Comment on above: Performed By: #### L [id number] ####[facility] LAB [address] [address] Jack Mendoza M.D. [id number] MCH (RBC) [Entitic mass] 20.6 pg Low 26.0-34.0 [facility] Comment on above: Performed By: #### L [id number] ####[facility] LAB [address] [address] Jack Mendoza M.D. [id number] MCV (RBC) [Entitic vol] 69.5 fL Low 80.0-100.0 [facility] Comment on above: Performed By: #### L [id number] #### LAB [address] [address] Jack Mendoza M.D. [id number] MEAN CORPUSCULAR HEMOGLOBIN CONC 29.7 g/dL Low 31.0-37.0 [facility] Comment on above: Performed By: #### L [id number] ####[facility] LAB [address] [address] Jack Mendoza M.D. [id number] Platelet mean volume (Bld) [Entitic vol] 9.6 fL Normal 9.4-12.4 [facility] Comment on above: Performed By: #### L [id number] ####[facility] LAB [address] [address] Jack Mendoza M.D. [id number] Platelets (Bld) [#/Vol] 119 10*3/uL Low 150-400 [facility] Comment on above: Performed By: #### L [id number] ####[facility] LAB [address] [address] Jack Mendoza M.D. [id number] RBC (Bld) [#/Vol] 5.28 10*6/uL Normal 4.50-5.90 [facility] Comment on above: Performed By: #### L [id number] #### LAB [address] [address] Jack Mendoza M.D. [id number] WBC (Bld) [#/Vol] 3.67 10*3/uL Low 4.50-11.00 [facility] Comment on above: Performed By: #### L [id number] #### LAB [address] [address] Jack Mendoza M.D. [id number] CBC and Diff Morphologyon Neutrophils.vacuolat ed LM Ql (Bld) Present [facility] Ovalocytes LM Ql (Bld) Few [facility] Platelets Large Auto Ql (Bld) Few [facility] Polychromasia LM Ql (Bld) Few [facility] RBC morphology finding Nom (Bld) See Comment [facility] Comment on above: RBC Indices confirme d with manual peripheral smear review. Target cells LM Ql (Bld) Few [facility] MANUAL DIFFERENTIALon 2024 BASOPHILS - ABS (DIFF) 0.00 K/mcL Normal 0.00-0.30 [facility] Comment on above: Performed By: #### 4 [id number] #### LAB [address] [address] Jack Mendoza M.D. [id number] BASOPHILS - REL (DIFF) 0.0 % Normal [facility] Comment on above: Performed By: #### 4 [id number] #### LAB [address] [address] Jack Mendoza M.D. [id number] EOSINOPHILS - ABS (DIFF) 0.13 K/mcL Normal 0.00-0.50 [facility] Comment on above: Performed By: #### 4 [id number] #### LAB [address] [address] Jack Mendoza M.D. [id number] EOSINOPHILS - REL (DIFF) 3.6 % Normal [facility] Comment on above: Performed By: #### 4 [id number] #### LAB [address] [address] Jack Mendoza M.D. [id number] LYMPHOCYTE ATYPICAL - REL (DIFF) 1.8 % Normal [facility] Comment on above: Performed By: #### 4 [id number] #### LAB [address] [address] Jack Mendoza M.D. [id number] LYMPHOCYTES - ABS (DIFF) 0.66 K/mcL Low 0.90-4.00 [facility] Comment on above: Performed By: #### 4 [id number] #### LAB [address] [address] Jack Mendoza M.D. [id number] LYMPHOCYTES - REL (DIFF) 16.2 % [facility] Comment on above: Performed By: #### 4 [id number] #### LAB [address] [address] Jack Mendoza M.D. [id number] MONOCYTES - ABS (DIFF) 0.33 K/mcL Normal 0.30-0.90 [facility] Comment on above: Performed By: #### 4 [id number] #### LAB [address] [address] Jack Mendoza M.D. [id number] MONOCYTES - REL (DIFF) 9.0 % Normal [facility] Comment on above: Performed By: #### 4 [id number] #### LAB [address] [address] Jack Mendoza M.D. [id number] NEUTROPHILS - ABS (DIFF) 2.55 K/mcL Normal 1.70-7.00 [facility] Comment on above: Performed By: #### 4 [id number] #### LAB [address] [address] Jack Mendoza M.D. [id number] NEUTROPHILS - REL (DIFF) 69.4 % Normal [facility] Comment on above: Performed By: #### 4 5456 ####[facility] LAB [address] [address] Jack Mendoza M.D. [id number] MORPHOLOGYon 10-21-2024 OVAL SCAN Few [facility] Comment on above: Performed By: #### L [id number] ####[facility] LAB [address] [address] Jack Mendoza M.D. [id number] PLATELETS LARGE Few [facility] Comment on above: Performed By: #### L [id number] ####[facility] LAB [address] [address] Jack Mendoza M.D. [id number] POLY SCAN Few [facility] Comment on above: Performed By: #### L [id number] ####[facility] LAB [address] [address] Jack Mendoza M.D. [id number] RBC MORPH SCAN See Comment [facility] Comment on above: Result Comment: RBC Indices confirmed with manual peripheral smear review. Performed By: #### L [id number] ####[facility] LAB [address] [address] Jack Mendoza M.D. [id number] TARGET CELL SCAN Few [facility] Comment on above: Performed By: #### L [id number] ####[facility] LAB [address] [address] Jack Mendoza M.D. [id number] VACUOLATED GRANULOCYTES Present [facility] Comment on above: Performed By: #### L [id number] ####[facility] LAB [address] [address] Jack Mendoza M.D. [id number] Manual Differential panel (B ld)on 10-21-2024 Basophils (Bld) [#/Vol] 0 10*3/uL [facility] Basophils/100 WBC (Bld) 0 % [facility] Eosinophils (Bld) [#/Vol] 0.13 10*3/uL [facility] Eosinophils/100 WBC (Bld) 3.6 % [facility] Lymphocytes (Bld) [#/Vol] 0.66 10*3/uL Low [facility] Lymphocytes/100 WBC (Bld) 16.2 % [facility] Monocytes (Bld) [#/Vol] 0.33 10*3/uL [facility] Monocytes/100 WBC (Bld) 9 % [facility] Neutrophils (Bld) [#/Vol] 2.55 10*3/uL [facility] Neutrophils/100 WBC (Bld) 69.4 % [facility] Variant lymphocytes/100 WBC (Bld) 1.8 % [facility] No Panel Informationon 10-21 Interpretation and review of laboratory results Abnormal [facility] Bacteria identified Cx Nom ( Bld)on 10-20-2024 Interpretation and review of laboratory results Normal [facility] Interpretation and review of laboratory results Normal [facility] Blood Culture Aerobic/Anaero bicon 10-20-2024 Bacteria identified Cx Nom (Bld) No Growth after [address] [facility] [place] [facility] Bacteria identified Cx Nom (Bld) No Growth after [address] [facility] [facility] CBC Auto Differentialon Erythrocyte distribution width (RBC) [Entitic vol] 16.5 % High 11.6 - 14.8 % [facility] Hematocrit (Bld) [Volume fraction] 33.5 % Low 41.0 - 53.0 % [facility] Hemoglobin (Bld) [Mass/Vol] 10 g/dL Low 13.5 - 17.5 g/dL [facility] MCH (RBC) [Entitic mass] 20.7 pg Low 26.0 - 34.0 pg [facility] MCHC (RBC) [Mass/Vol] 29.9 g/dL Low 31.0 - 37.0 g/dL [facility] MCV (RBC) [Entitic vol] 69.4 fL Low 80.0 - 100.0 fL [facility] Nucleated RBC (Bld) [#/Vol] 0 10*3/uL [facility] Nucleated RBC/100 WBC (Bld) [Ratio] 0 % [facility] Platelet mean volume (Bld) [Entitic vol] 9.6 fL 9.4 - 12.4 fL [facility] Platelets (Bld) [#/Vol] 109 10*3/uL Low [facility] RBC (Bld) [#/Vol] 4.83 10*6/uL [facility] WBC (Bld) [#/Vol] 3.49 10*3/uL Low [facility] CBC WITH AUTO DIFFERENTIALon 10-20-2024 AUTO NRBC 0.0 % Normal [facility] Comment on above: Performed By: #### L [id number] ####[facility] LAB [address] [address] Jack Mendoza M.D. [id number] AUTO NRBC ABS COUNT 0.00 K/mcL Normal 0.00-0.00 [facility] Comment on above: Performed By: #### L [id number] ####[facility] [address] [address] Jack Mendoza M.D. [id number] Erythrocyte distribution width (RBC) [Ratio] 16.5 % High 11.6-14.8 [facility] Comment on above: Performed By: #### L [id number] #### LAB [address] [address] Jack Mendoza M.D. [id number] Hematocrit (Bld) [Volume fraction] 33.5 % Low 41.0-53.0 [facility] Comment on above: Performed By: #### L [id number] #### LAB [address] [address] Jack Mendoza M.D. [id number] Hemoglobin (Bld) [Mass/Vol] 10.0 g/dL Low 13.5-17.5 [facility] Comment on above: Performed By: #### L [id number] #### LAB [address] [address] Jack Mendoza M.D. [id number] MCH (RBC) [Entitic mass] 20.7 pg Low 26.0-34.0 [facility] Comment on above: Performed By: #### L [id number] ####[facility] [address] [address] Jack Mendoza M.D. [id number] MCV (RBC) [Entitic vol] 69.4 fL Low 80.0-100.0 [facility] Comment on above: Performed By: #### L [id number] #### LAB [address] [address] Jack Mendoza M.D. [id number] MEAN CORPUSCULAR HEMOGLOBIN CONC 29.9 g/dL Low 31.0-37.0 [facility] Comment on above: Performed By: #### L [id number] #### LAB [address] [address] Jack Mendoza M.D. [id number] Platelet mean volume (Bld) [Entitic vol] 9.6 fL Normal 9.4-12.4 [facility] Comment on above: Performed By: #### L [id number] ####[facility] LAB [address] [place] [address] aJck Mendoza M.D. [id number] Platelets (Bld) [#/Vol] 109 10*3/uL Low 150-400 [facility] Comment on above: Performed By: #### L [id number] #### LAB [address] [place] [address] Jack Mendoza M.D. [id number] RBC (Bld) [#/Vol] 4.83 10*6/uL Normal 4.50-5.90 [facility] Comment on above: Performed By: #### L [id number] #### LAB [address] [place] [address] Jack Mendoza M.D. [id number] WBC (Bld) [#/Vol] 3.49 10*3/uL Low 4.50-11.00 [facility] Comment on above: Performed By: #### L [id number] #### LAB [address] [place] [address] Jack Mendoza M.D. [id number] CBC and Diff Morphologyon Neutrophils.vacuolat ed LM Ql (Bld) Present [facility] Ovalocytes LM Ql (Bld) Few [facility] Platelets LM Ql (Bld) Decreased Abnormal Normal [facility] Polychromasia LM Ql (Bld) Few [facility] RBC morphology finding Nom (Bld) See Comment [facility] Comment on above: RBC Indices confirme d with manual peripheral smear review. Target cells LM Ql (Bld) Moderate [facility] MANUAL DIFFERENTIALon 2024 BASOPHILS - ABS (DIFF) 0.03 K/mcL Normal 0.00-0.30 [facility] Comment on above: Performed By: #### 4 0956 #### LAB [address] [place] [address] Jack Mendoza M.D. [id number] BASOPHILS - REL (DIFF) 0.9 % [facility] Comment on above: Performed By: #### 4 6097 #### LAB [address] [place] [address] Jack Mendoza M.D. [id number] EOSINOPHILS - ABS (DIFF) 0.15 K/mcL Normal 0.00-0.50 [facility] Comment on above: Performed By: #### 4 5456 #### LAB [address] [place] [address] Jack Mendoza M.D. [id number] EOSINOPHILS - REL (DIFF) 4.3 % [facility] Comment on above: Performed By: #### 4 3956 #### LAB [address] [place] [address] Jack Mendoza M.D. [id number] LYMPHOCYTES - ABS (DIFF) 0.34 K/mcL Low 0.90-4.00 [facility] Comment on above: Performed By: #### 4 7556 #### LAB [address] [place] [address] Jack Mendoza M.D. [id number] LYMPHOCYTES - REL (DIFF) 9.6 % [facility] Comment on above: Performed By: #### 4 9327 #### LAB [address] [place] [address] Jack Mendoza M.D. [id number] MONOCYTES - ABS (DIFF) 0.15 K/mcL Low 0.30-0.90 [facility] Comment on above: Performed By: #### 4 9572 #### LAB [address] [place] [address] Jack Mendoza M.D. [id number] MONOCYTES - REL (DIFF) 4.3 % [facility] Comment on above: Performed By: #### 4 5456 #### LAB [address] [place] [address] Jack Mendoza M.D. [id number] NEUTROPHILS - ABS (DIFF) 2.82 K/mcL Normal 1.70-7.00 [facility] Comment on above: Performed By: #### 4 5456 ####[facility] LAB [address] [place] [address] Jack Mendoza M.D. [id number] NEUTROPHILS - REL (DIFF) 80.9 % Normal [facility] Comment on above: Performed By: #### 4 5456 #### LAB [address] [place] [address] Jack Mendoza M.D. [id number] MORPHOLOGYon 10-20-2024 OVAL SCAN Few Normal [facility] Comment on above: Performed By: #### L [id number] #### LAB [address] [place] [address] Jack Mendoza M.D. [id number] PLATELET ESTIMATE Decreased Abnormal Normal [facility] Comment on above: Performed By: #### L [id number] #### LAB [address] [place] [address] Jack Mendoza M.D. [id number] POLY SCAN Few Normal [facility] Comment on above: Performed By: #### L [id number] #### LAB [address] [place] [address] Jack Mendoza M.D. [id number] RBC MORPH SCAN See Comment Normal [facility] Comment on above: Result Comment: RBC Indices confirmed with manual peripheral smear review. Performed By: #### L [id number] ####[facility] LAB [address] [place] [address] Jack Mendoza M.D. [id number] TARGET CELL SCAN Moderate Normal [facility] Comment on above: Performed By: #### L [id number] ####[facility] LAB [address] [place] [address] Jack Mendoza M.D. [id number] VACUOLATED GRANULOCYTES Present Normal [facility] Comment on above: Performed By: #### L [id number] ####[facility] LAB [address] [place], [place] [address] Jack Mendoza M.D. [id number] Manual Differential panel (B ld)on 10-20-2024 Basophils (Bld) [#/Vol] 0.03 10*3/uL [facility] Basophils/100 WBC (Bld) 0.9 % [facility] Eosinophils (Bld) [#/Vol] 0.15 10*3/uL [facility] Eosinophils/100 WBC (Bld) 4.3 % [facility] Lymphocytes (Bld) [#/Vol] 0.34 10*3/uL Low [facility] Lymphocytes/100 WBC (Bld) 9.6 % [facility] Monocytes (Bld) [#/Vol] 0.15 10*3/uL Low [facility] Monocytes/100 WBC (Bld) 4.3 % [facility] Neutrophils (Bld) [#/Vol] 2.82 10*3/uL [facility] Neutrophils/100 WBC (Bld) 80.9 % [facility] No Panel Informationon 10-20 Interpretation and review of laboratory results Abnormal [facility] Wound Aerobic CultureOrdered By: Carlos Godwin on 10-20-2024 Bacteria identified Aer cx Nom (Wound) Light Growth Corynebacterium species, not JK Abnormal [facility] Interpretation and review of laboratory results Abnormal [facility] Microscopic observation Gram stain Nom (Wound) Moderate WBC [facility] Microscopic observation Gram stain Nom (Wound) No Organisms Seen [facility] CBC Auto Differentialon 09-23 Erythrocyte distribution width (RBC) [Entitic vol] 16.9 % High 11.6 - 14.8 % [facility] Hematocrit (Bld) [Volume fraction] 35.2 % Low 41.0 - 53.0 % [facility] Hemoglobin (Bld) [Mass/Vol] 10.3 g/dL Low 13.5 - 17.5 g/dL [facility] MCH (RBC) [Entitic mass] 20.3 pg Low 26.0 - 34.0 pg [facility] MCHC (RBC) [Mass/Vol] 29.3 g/dL Low 31.0 - 37.0 g/dL [facility] MCV (RBC) [Entitic vol] 69.3 fL Low 80.0 - 100.0 fL [facility] Nucleated RBC (Bld) [#/Vol] 0 10*3/uL [facility] Nucleated RBC/100 WBC (Bld) [Ratio] 0 % [facility] Platelet mean volume (Bld) [Entitic vol] 9.7 fL 9.4 - 12.4 fL [facility] Platelets (Bld) [#/Vol] 116 10*3/uL Low [facility] RBC (Bld) [#/Vol] 5.08 10*6/uL [facility] WBC (Bld) [#/Vol] 4.02 10*3/uL Low [facility] CBC WITH AUTO DIFFERENTIALon 10-19-2024 AUTO NRBC 0.0 % Normal [facility] Comment on above: Performed By: #### L [id number] #### LAB [address] [place] [address] Jack Mendoza M.D. [id number] AUTO NRBC ABS COUNT 0.00 K/mcL Normal 0.00-0.00 [facility] Comment on above: Performed By: #### L [id number] #### LAB [address] [place] [address] Jack Mendoza M.D. [id number] Erythrocyte distribution width (RBC) [Ratio] 16.9 % High 11.6-14.8 [facility] Comment on above: Performed By: #### L [id number] #### LAB [address] [place] [address] Jack Mendoza M.D. [id number] Hematocrit (Bld) [Volume fraction] 35.2 % Low 41.0-53.0 [facility] Comment on above: Performed By: #### L [id number] #### LAB [address] [place] [address] Jack Mendoza M.D. [id number] Hemoglobin (Bld) [Mass/Vol] 10.3 g/dL Low 13.5-17.5 [facility] Comment on above: Performed By: #### L [id number] #### LAB [address] [place] [address] Jack Mendoza M.D. [id number] MCH (RBC) [Entitic mass] 20.3 pg Low 26.0-34.0 [facility] Comment on above: Performed By: #### L [id number] #### LAB [address] [place] [address] Jack Mendoza M.D. [id number] MCV (RBC) [Entitic vol] 69.3 fL Low 80.0-100.0 [facility] Comment on above: Performed By: #### L [id number] ####[facility] LAB [address] [place] [address] Jack Mendoza M.D. [id number] MEAN CORPUSCULAR HEMOGLOBIN CONC 29.3 g/dL Low 31.0-37.0 [facility] Comment on above: Performed By: #### L [id number] #### LAB [address] [place] [address] Jack Mendoza M.D. [id number] Platelet mean volume (Bld) [Entitic vol] 9.7 fL Normal 9.4-12.4 [facility] Comment on above: Performed By: #### L [id number] #### LAB [address] [place] [address] Jack Mendoza M.D. [id number] Platelets (Bld) [#/Vol] 116 10*3/uL Low 150-400 [facility] Comment on above: Performed By: #### L [id number] #### LAB [address] [place] [address] Jack Mendoza M.D. [id number] RBC (Bld) [#/Vol] 5.08 10*6/uL Normal 4.50-5.90 [facility] Comment on above: Performed By: #### L [id number] #### LAB [address] [place] [address] Jack Mendoza M.D. [id number] WBC (Bld) [#/Vol] 4.02 10*3/uL Low 4.50-11.00 [facility] Comment on above: Performed By: #### L [id number] #### LAB [address] [place] [address] Jack Mendoza M.D. [id number] CBC and Diff Morphologyon Neutrophils.vacuolat ed LM Ql (Bld) Present [facility] Ovalocytes LM Ql (Bld) Many [facility] Platelets LM Ql (Bld) Decreased Abnormal Normal [facility] RBC morphology finding Nom (Bld) See Comment [facility] Comment on above: RBC Indices confirme d with manual peripheral smear review. Schistocytes Auto Ql (Bld) Few Abnormal See Comment [facility] Stomatocytes LM Ql (Bld) Few [facility] Target cells LM Ql (Bld) Many [facility] MANUAL DIFFERENTIALon 2024 BASOPHILS - ABS (DIFF) 0.04 K/mcL Normal 0.00-0.30 [facility] Comment on above: Performed By: #### 4 [id number] #### LAB [address] [place] [address] Jack Mendoza M.D. [id number] BASOPHILS - REL (DIFF) 0.9 % Normal [facility] Comment on above: Performed By: #### 4 5456 #### LAB [address] [place] [address] Jack Mendoza M.D. [id number] EOSINOPHILS - ABS (DIFF) 0.04 K/mcL Normal 0.00-0.50 [facility] Comment on above: Performed By: #### 4 5456 #### LAB [address] [place] [address] Jack Mendoza M.D. [id number] EOSINOPHILS - REL (DIFF) 0.9 % Normal [facility] Comment on above: Performed By: #### 4 5456 #### LAB [address] [place] [address] Jack Mendoza M.D. [id number] LYMPHOCYTES - ABS (DIFF) 0.60 K/mcL Low 0.90-4.00 [facility] Comment on above: Performed By: #### 4 5456 #### LAB [address] [place] [address] Jack Mendoza M.D. [id number] LYMPHOCYTES - REL (DIFF) 14.9 % Normal [facility] Comment on above: Performed By: #### 4 5456 #### LAB [address] [place] [address] Jack Mendoza M.D. [id number] METAMYELOCYTES-REL (DIFF) 0.9 % Normal [facility] Comment on above: Performed By: #### 4 5456 #### LAB [address] [place] [address] Jack Mendoza M.D. [id number] MONOCYTES - ABS (DIFF) 0.21 K/mcL Low 0.30-0.90 [facility] Comment on above: Performed By: #### 4 5456 #### LAB [address] [place] [address] Jack Mendoza M.D. [id number] MONOCYTES - REL (DIFF) 5.2 % Normal [facility] Comment on above: Performed By: #### 4 5456 #### LAB [address] [place] [address] Jack Mendoza M.D. [id number] NEUTROPHILS - ABS (DIFF) 3.14 K/mcL Normal 1.70-7.00 [facility] Comment on above: Performed By: #### 4 5456 #### LAB [address] [place] [address] Jack Mendoza M.D. [id number] NEUTROPHILS - REL (DIFF) 77.2 % [facility] Comment on above: Performed By: #### 4 5456 #### LAB [address] [place] [address] Jack Mendoza M.D. [id number] MORPHOLOGYon 10-19-2024 OVAL SCAN Many Normal [facility] Comment on above: Performed By: #### L [id number] #### LAB [address] [place] [address] Jack Mendoza M.D. [id number] PLATELET ESTIMATE Decreased Abnormal Normal [facility] Comment on above: Performed By: #### L [id number] #### LAB [address] [place], [place] [address] Jack Mendoza M.D. [id number] RBC MORPH SCAN See Comment Normal [facility] Comment on above: Result Comment: RBC Indices confirmed with manual peripheral smear review. Performed By: #### L [id number] ####[facility] LAB [address] [place], [place] [address] Jack Mendoza M.D. [id number] SCHISTO SCAN Few Abnormal See Comment [facility] Comment on above: Performed By: #### L [id number] ####[facility] LAB [address] [place], [place] [address] Jack Mendoza M.D. [id number] STOMATOCYTES Few Normal [facility] Comment on above: Performed By: #### L [id number] ####[facility] LAB [address] [place], [place] [address] Jack Mendoza M.D. [id number] TARGET CELL SCAN Many Normal [facility] Comment on above: Performed By: #### L [id number] ####[facility] LAB [address] [place] [address] Jack Mendoza M.D. [id number] VACUOLATED GRANULOCYTES Present Normal [facility] Comment on above: Performed By: #### L [id number] ####[facility] LAB [address] [place], [place] [address] Jack Mendoza M.D. [id number] Manual Differential panel (B ld)on 10-19-2024 Basophils (Bld) [#/Vol] 0.04 10*3/uL [facility] Basophils/100 WBC (Bld) 0.9 % [facility] Eosinophils (Bld) [#/Vol] 0.04 10*3/uL [facility] Eosinophils/100 WBC (Bld) 0.9 % [facility] Lymphocytes (Bld) [#/Vol] 0.6 10*3/uL Low [facility] Lymphocytes/100 WBC (Bld) 14.9 % [facility] Metamyelocytes/100 WBC (Bld) 0.9 % [facility] Monocytes (Bld) [#/Vol] 0.21 10*3/uL Low [facility] Monocytes/100 WBC (Bld) 5.2 % [facility] Neutrophils (Bld) [#/Vol] 3.14 10*3/uL [facility] Neutrophils/100 WBC (Bld) 77.2 % [facility] No Panel Informationon 10-19 Interpretation and review of laboratory results Abnormal [facility] CBC Auto Differentialon 09-23 Basophils (Bld) [#/Vol] 0.01 10*3/uL [facility] Basophils/100 WBC (Bld) 0.2 % [facility] Eosinophils (Bld) [#/Vol] 0.02 10*3/uL [facility] Eosinophils/100 WBC (Bld) 0.5 % [facility] Erythrocyte distribution width (RBC) [Entitic vol] 16.5 % High 11.6 - 14.8 % [facility] Hematocrit (Bld) [Volume fraction] 36 % Low 41.0 - 53.0 % [facility] Hemoglobin (Bld) [Mass/Vol] 10.4 g/dL Low 13.5 - 17.5 g/dL [facility] Immature granulocytes (Bld) [#/Vol] 0.02 10*3/uL [facility] Immature granulocytes/100 WBC (Bld) 0.5 % [facility] Comment on above: The IG parameter is the percentage of metamyelocytes, myelocytes and promyelocytes. An immature granulocyte count (IG) of 1% or more suggests the possibility of infection, an IG count of 3% is very likely related to an infection. Interpretation and review of laboratory results Abnormal [facility] Lymphocytes (Bld) [#/Vol] 0.49 10*3/uL Low [facility] Lymphocytes/100 WBC (Bld) 12.1 % [facility] MCH (RBC) [Entitic mass] 20.5 pg Low 26.0 - 34.0 pg [facility] MCHC (RBC) [Mass/Vol] 28.9 g/dL Low 31.0 - 37.0 g/dL [facility] MCV (RBC) [Entitic vol] 70.9 fL Low 80.0 - 100.0 fL [facility] Monocytes (Bld) [#/Vol] 0.3 10*3/uL [facility] Monocytes/100 WBC (Bld) 7.4 % [facility] Neutrophils (Bld) [#/Vol] 3.21 10*3/uL [facility] Neutrophils/100 WBC (Bld) 79.3 % [facility] Nucleated RBC (Bld) [#/Vol] 0 10*3/uL [facility] Nucleated RBC/100 WBC (Bld) [Ratio] 0 % [facility] Platelet mean volume (Bld) [Entitic vol] 10.1 fL 9.4 - 12.4 fL [facility] Platelets (Bld) [#/Vol] 117 10*3/uL Low [facility] RBC (Bld) [#/Vol] 5.08 10*6/uL [facility] eah WBC (Bld) [#/Vol] 4.05 10*3/uL Low [facility] WITH AUTO DIFFERENTIALon 10-18-2024 AUTO NRBC 0.0 % [facility] Comment on above: Performed By: #### L [id number] #### LAB [address] [place] [address] Jack Mendoza M.D. [id number] AUTO NRBC ABS COUNT 0.00 K/mcL Normal 0.00-0.00 [facility] Comment on above: Performed By: #### L [id number] #### LAB [address] [place] [address] Jack Mendoza M.D. [id number] BASOPHILS ABSOLUTE COUNT 0.01 K/mcL Normal 0.00-0.30 [facility] Comment on above: Performed By: #### L [id number] #### LAB [address] [place] [address] Jack Mendoza M.D. [id number] Basophils/100 WBC (Bld) 0.2 % [facility] Comment on above: Performed By: #### L [id number] #### LAB [address] [place] [address] Jack Mendoza M.D. [id number] Eosinophils (Bld) [#/Vol] 0.02 10*3/uL Normal 0.00-0.50 [facility] Comment on above: Performed By: #### L [id number] #### LAB [address] [place] [address] Jack Mendoza M.D. [id number] Eosinophils/100 WBC (Bld) 0.5 % [facility] Comment on above: Performed By: #### L [id number] #### LAB [address] [place] [address] Jack Mendoza M.D. [id number] Erythrocyte distribution width (RBC) [Ratio] 16.5 % High 11.6-14.8 [facility] Comment on above: Performed By: #### L [id number] #### LAB [address] [place] [address] Jack Mendoza M.D. [id number] Hematocrit (Bld) [Volume fraction] 36.0 % Low 41.0-53.0 [facility] Comment on above: Performed By: #### L [id number] #### LAB [address] [place] [address] Jack Mendoza M.D. [id number] Hemoglobin (Bld) [Mass/Vol] 10.4 g/dL Low 13.5-17.5 [facility] Comment on above: Performed By: #### L [id number] #### LAB [address] [place] [address] Jack Mendoza M.D. [id number] IG ABSOLUTE 0.02 K/mcL Normal 0.00-0.30 [facility] Comment on above: Performed By: #### L [id number] #### LAB [address] [place] [address] Jack Mendoza M.D. [id number] IG PERCENT 0.50 % Normal [facility] Comment on above: Result Comment: The IG parameter is the percentage of metamyelocytes, myelocytes and promyelocytes. An immature granulocyte count (IG) of 1% or more suggests the possibility of infection, an IG count of 3% is very likely related to an infection. Performed By: #### L [id number] #### LAB [address] [place] [address] Jack Mendoza M.D. [id number] Lymphocytes (Bld) [#/Vol] 0.49 10*3/uL Low 0.90-4.00 [facility] Comment on above: Performed By: #### L [id number] #### LAB [address] [place] [address] Jack Mendoza M.D. [id number] Lymphocytes/100 WBC (Bld) 12.1 % Normal [facility] Comment on above: Performed By: #### L [id number] #### LAB [address] [place] [address] Jack Mendoza M.D. [id number] MCH (RBC) [Entitic mass] 20.5 pg Low 26.0-34.0 [facility] Comment on above: Performed By: #### L [id number] #### LAB [address] [place] [address] Jack Mendoza M.D. [id number] MCV (RBC) [Entitic vol] 70.9 fL Low 80.0-100.0 [facility] Comment on above: Performed By: #### L [id number] #### LAB [address] [place] [address] Jack Mendoza M.D. [id number] MEAN CORPUSCULAR HEMOGLOBIN CONC 28.9 g/dL Low 31.0-37.0 [facility] Comment on above: Performed By: #### L [id number] #### LAB [address] [place] [address] Jack Mendoza M.D. [id number] Monocytes (Bld) [#/Vol] 0.30 10*3/uL Normal 0.30-0.90 [facility] Comment on above: Performed By: #### L [id number] #### LAB [address] [place] [address] Jack Mendoza M.D. [id number] Monocytes/100 WBC (Bld) 7.4 % Normal [facility] Comment on above: Performed By: #### L [id number] #### LAB [address] [place] [address] Jack Mendoza M.D. [id number] NEUTROPHILS ABSOLUTE COUNT 3.21 K/mcL Normal 1.70-7.00 [facility] Comment on above: Performed By: #### L [id number] ####[facility] LAB [address] [place] [address] Jack Mendoza M.D. [id number] Neutrophils/100 WBC (Bld) 79.3 % Normal [facility] Comment on above: Performed By: #### L [id number] ####[facility] LAB [address] [place] [address] Jack Mendzoa M.D. [id number] Platelet mean volume (Bld) [Entitic vol] 10.1 fL Normal 9.4-12.4 [facility] Comment on above: Performed By: #### L [id number] ####[facility] LAB [address] [place] [address] Jack Mendoza M.D. [id number] Platelets (Bld) [#/Vol] 117 10*3/uL Low 150-400 [facility] Comment on above: Performed By: #### L [id number] ####[facility] LAB [address] [place] [address] Jack Mendoza M.D. [id number] RBC (Bld) [#/Vol] 5.08 10*6/uL Normal 4.50-5.90 [facility] Comment on above: Performed By: #### L [id number] ####[facility] LAB [address] [place] [address] Jack Mendoza M.D. [id number] WBC (Bld) [#/Vol] 4.05 10*3/uL Low 4.50-11.00 [facility] Comment on above: Performed By: #### L [id number] ####[facility] LAB [address] [place] [address] Jack Mendoza M.D. [id number] CRP [Mass/Vol]on 10-18-2024 Interpretation and review of laboratory results Normal [facility] CRP, INFLAMMATIONon 10-18-19 CRP [Mass/Vol] 9.6 mg/L Normal 0.0-10.0 [facility] Comment on above: Performed By: #### 4 [id number] #### LAB [address] [place] [address] Jack Mendoza M.D. [id number] CRP, Inflammationon 10-18-19 CRP [Mass/Vol] 9.6 mg/L 0.0 - 10.0 mg/L [facility] ECG 12 Lead (Now)on 10-18-19 Atrial Rate 92 BPM [facility] P [place] 52 degrees [facility] P-R Interval 144 ms [facility] Q-T Interval 380 ms [facility] QRS Duration 80 ms [facility] QTC Calculation (Bezet) 469 ms [facility] R [place] 47 degrees [facility] T [place] 34 degrees [facility] Ventricular Rate 92 BPM [facility] Normal sinus rhythm Nonspecific ST abnormality Abnormal ECG ECG Cart Interpretation see physician note for interpretation. Confirmed by Whit Pearson ([id number]) on 10/17/2024 3:42:06 PM [facility] US ANKLE/BRACHIAL INDICES EX TREMITY LIMITEDon 10-18-2024 ANKLE/BRACHIAL INDICES EXTREMITY LIMITED Normal [facility] Doppler ankle/brachial in dexon 10-18-2024 Patient Info Name: CARMEN GILMAN Age: 59 years : 1965 Gender: Male Exam Date: 10/17/2024 2:36 PM Patient Status: Inpatient Thermospray Operator: Margy Bradley RVT Referring Physician: QUYEN FRANCO NP; Indications - Leg and foot ulcers R09.89 - Other specified symptoms and signs involving the circulatory and respiratory systems Procedure Description 53378 Limited bilateral noninvasive physiologic studies of upper [...] Date: 10/17/2024 2:36 PM Patient Status: Inpatient Thermospray Operator: Margy Bradley RVT Referring Physician: QUYEN FRANCO METALLURGICAL LAB TECHNICIAN; Indications - Leg and foot ulcers R09.89 - Other specified symptoms and signs involving the circulatory and respiratory systems Procedure Description 52974 Limited bilateral noninvasive physiologic studies of upper [...] Sb Savage MD on 10/18/2024 09:06 AM [facility] WOUND AEROBIC CULTUREon 09-23 WOUND AEROBIC CULTURE AEROBIC CULTURE CORYNEBACTERIUM SPECIES Light Growth Corynebacterium species, not JK GRAM STAIN RESULT Moderate WBC No Organisms Seen Abnormal [facility] Comment on above: Performed By: #### 4 [id number] ####[facility] [address] [place] [address] Venancio Richardson M.D. [id number] XR Thoracic spine 2 Viewson 10-18-2024 No significant change Workstation ID: [id number] [employer] RIS EXAMINATION: XR THORACIC SPINE 2 VIEWS 10/17/2024 6:10 pm HISTORY: ORDERING SYSTEM PROVIDED HISTORY: Upright XR in TLSO brace, TECHNOLOGIST PROVIDED HISTORY: Illness/Other Reason for exam: Upright XR in TLSO brace Cancer History: u Surgery, RadiationHistory: u Encounter Type: Initial Additional signs and symptoms: . ORDERING SYSTEM PROVIDED DIAGNOSIS CODES: J96.01 Acute respiratory failure with hypoxia ([facility]) J44.1 COPD exacerbation ([facility]) L03.90 Cellulitis, unspecified cellulitis site A41.9 Sepsis, due to unspecified organism, unspecified whether acute organ dysfunction present ([facility]) S22.060A Compression fracture of T7 vertebra, initial encounter ([facility]) M17.11 Osteoarthritis of right knee, unspecified osteoarthritis type I50.31 Acute heart failure with preserved ejection fraction (HFpEF) ([facility]) I50.32 Chronic diastolic congestive heart failure ([facility]) I95.9 Hypotension, unspecified hypotension type E11.9 Type 2 diabetes mellitus without complication, without long-term current use of insulin ([facility]) I48.91 Atrial fibrillation with rapid ventricular response ([facility]) E66.01 Morbid obesity with BMI of 40.0-44.9, adult ([facility]) Z68.41 Morbid obesity with BMI of 40.0-44.9, adult ([facility]) K74.60 Hepatic cirrhosis, unspecified hepatic cirrhosis type, unspecified whether ascites present ([facility]) J44.1 Acute exacerbation of chronic obstructive pulmonary disease (COPD) ([facility]) COMPARISON: MRI 10/16/2024 FINDINGS: Unchanged alignment of the thoracic spine. Unchanged appearance of a T7 compression fracture. No new fracture is evident. Probable right basilar atelectasis [facility] Yoly Lai MD - 10/18/2024 EXAMINATION: XR THORACIC SPINE 2 VIEWS 10/17/2024 6:10 pm HISTORY: ORDERING SYSTEM PROVIDED HISTORY: Upright XR in TLSO brace, TECHNOLOGIST PROVIDED HISTORY: Illness/Other Reason for exam: Upright XR in TLSO brace Cancer History: u Surgery, RadiationHistory: u Encounter Type: Initial Additional signs and symptoms: . ORDERING SYSTEM PROVIDED DIAGNOSIS CODES: J96.01 Acute respiratory failure with hypoxia ([facility]) J44.1 COPD exacerbation ([facility]) L03.90 Cellulitis, unspecified cellulitis site A41.9 Sepsis, due to unspecified organism, unspecified whether acute organ dysfunction present ([facility]) S22.060A Compression fracture of T7 vertebra, initial encounter ([facility]) M17.11 Osteoarthritis of right knee, unspecified osteoarthritis type I50.31 Acute heart failure with preserved ejection fraction (HFpEF) ([facility]) I50.32 Chronic diastolic congestive heart failure ([facility]) I95.9 Hypotension, unspecified hypotension type E11.9 Type 2 diabetes mellitus without complication, without long-term current use of insulin ([facility]) I48.91 Atrial fibrillation with rapid ventricular response ([facility]) E66.01 Morbid obesity with BMI of 40.0-44.9, adult (HCC) Z68.41 Morbid obesity with BMI of 40.0-44.9, adult ([facility]) K74.60 Hepatic cirrhosis, unspecified hepatic cirrhosis type, unspecified whether ascites present ([facility]) J44.1 Acute exacerbation of chronic obstructive pulmonary disease (COPD) ([facility]) COMPARISON: MRI 10/16/2024 FINDINGS: Unchanged alignment of the thoracic spine. Unchanged appearance of a T7 compression fracture. No new fracture is evident. Probable right basilar atelectasis IMPRESSION: No significant change Workstation ID: [id number] [facility] XR Thoracic spine 2 ViewsOrd ered By: Yoly Lai on 10-18-2024 [facility] Work Phone: CBC Auto Differentialon 09-23 Basophils (Bld) [#/Vol] 0.01 10*3/uL [facility] Basophils/100 WBC (Bld) 0.2 % [facility] Eosinophils (Bld) [#/Vol] 0.01 10*3/uL [facility] Eosinophils/100 WBC (Bld) 0.2 % [facility] Erythrocyte distribution width (RBC) [Entitic vol] 16.6 % High 11.6 - 14.8 % [facility] Hematocrit (Bld) [Volume fraction] 32.7 % Low 41.0 - 53.0 % [facility] Hemoglobin (Bld) [Mass/Vol] 9.7 g/dL Low 13.5 - 17.5 g/dL [facility] Immature granulocytes (Bld) [#/Vol] 0.02 10*3/uL [facility] Immature granulocytes/100 WBC (Bld) 0.5 % [facility] Comment on above: The IG parameter is the percentage of metamyelocytes, myelocytes and promyelocytes. An immature granulocyte count (IG) of 1% or more suggests the possibility of infection, an IG count of 3% is very likely related to an infection. Interpretation and review of laboratory results Abnormal [facility] Lymphocytes (Bld) [#/Vol] 0.54 10*3/uL Low [facility] Lymphocytes/100 WBC (Bld) 12.5 % [facility] MCH (RBC) [Entitic mass] 20.9 pg Low 26.0 - 34.0 pg [facility] MCHC (RBC) [Mass/Vol] 29.7 g/dL Low 31.0 - 37.0 g/dL [facility] MCV (RBC) [Entitic vol] 70.3 fL Low 80.0 - 100.0 fL [facility] Monocytes (Bld) [#/Vol] 0.3 10*3/uL [facility] Monocytes/100 WBC (Bld) 7 % [facility] Neutrophils (Bld) [#/Vol] 3.43 10*3/uL [facility] Neutrophils/100 WBC (Bld) 79.6 % [facility] Nucleated RBC (Bld) [#/Vol] 0 10*3/uL [facility] Nucleated RBC/100 WBC (Bld) [Ratio] 0 % [facility] Platelet mean volume (Bld) [Entitic vol] 9.7 fL 9.4 - 12.4 fL [facility] Platelets (Bld) [#/Vol] 111 10*3/uL Low [facility] RBC (Bld) [#/Vol] 4.65 10*6/uL [facility] WBC (Bld) [#/Vol] 4.31 10*3/uL Low [facility] WITH AUTO DIFFERENTIALon 10-17-2024 AUTO NRBC 0.0 % [facility] Comment on above: Performed By: #### L [id number] #### LAB [address] [place] [address] Jack Mendoza M.D. [id number] AUTO NRBC ABS COUNT 0.00 K/mcL Normal 0.00-0.00 [facility] Comment on above: Performed By: #### L [id number] #### LAB [address] [address] Jack Mendoza M.D. [id number] BASOPHILS ABSOLUTE COUNT 0.01 K/mcL Normal 0.00-0.30 [facility] Comment on above: Performed By: #### L [id number] #### LAB [address] [place] [address] Jack Mendoza M.D. [id number] Basophils/100 WBC (Bld) 0.2 % [facility] Comment on above: Performed By: #### L [id number] #### LAB [address] [place] [address] Jack Mendoza M.D. [id number] Eosinophils (Bld) [#/Vol] 0.01 10*3/uL Normal 0.00-0.50 [facility] Comment on above: Performed By: #### L [id number] #### LAB [address] [place] [address] Jack Mendoza M.D. [id number] Eosinophils/100 WBC (Bld) 0.2 % Normal [facility] Comment on above: Performed By: #### L [id number] #### LAB [address] [address] Jack Mendoza M.D. [id number] Erythrocyte distribution width (RBC) [Ratio] 16.6 % High 11.6-14.8 [facility] Comment on above: Performed By: #### L [id number] #### LAB [address] [address] Jack Mendoza M.D. [id number] Hematocrit (Bld) [Volume fraction] 32.7 % Low 41.0-53.0 [facility] Comment on above: Performed By: #### L [id number] #### LAB [address] [address] Jack Mendoza M.D. [id number] Hemoglobin (Bld) [Mass/Vol] 9.7 g/dL Low 13.5-17.5 [facility] Comment on above: Performed By: #### L [id number] #### LAB [address] [place] [address] Jack Mendoza M.D. [id number] IG ABSOLUTE 0.02 K/mcL Normal 0.00-0.30 [facility] Comment on above: Performed By: #### L [id number] #### LAB [address] [place] [address] Jack Mendoza M.D. [id number] IG PERCENT 0.50 % Normal [facility] Comment on above: Result Comment: The IG parameter is the percentage of metamyelocytes, myelocytes and promyelocytes. An immature granulocyte count (IG) of 1% or more suggests the possibility of infection, an IG count of 3% is very likely related to an infection. Performed By: #### L [id number] #### LAB [address] [place] [address] Jack Mendoza M.D. [id number] Lymphocytes (Bld) [#/Vol] 0.54 10*3/uL Low 0.90-4.00 [facility] Comment on above: Performed By: #### L [id number] #### LAB [address] [address] Jack Mendoza M.D. [id number] Lymphocytes/100 WBC (Bld) 12.5 % Normal [facility] Comment on above: Performed By: #### L [id number] #### LAB [address] [address] Jack Mendoza M.D. [id number] MCH (RBC) [Entitic mass] 20.9 pg Low 26.0-34.0 [facility] Comment on above: Performed By: #### L [id number] #### LAB [address] [address] Jack Mendoza M.D. [id number] MCV (RBC) [Entitic vol] 70.3 fL Low 80.0-100.0 [facility] Comment on above: Performed By: #### L [id number] #### LAB [address] [address] Jack Mendoza M.D. [id number] MEAN CORPUSCULAR HEMOGLOBIN CONC 29.7 g/dL Low 31.0-37.0 [facility] Comment on above: Performed By: #### L [id number] #### LAB [address] [address] Jack Mendoza M.D. [id number] Monocytes (Bld) [#/Vol] 0.30 10*3/uL Normal 0.30-0.90 [facility] Comment on above: Performed By: #### L [id number] #### LAB [address] [address] Jack Mendoza M.D. [id number] Monocytes/100 WBC (Bld) 7.0 % Normal [facility] Comment on above: Performed By: #### L [id number] #### LAB [address] [address] Jack Mendoza M.D. [id number] NEUTROPHILS ABSOLUTE COUNT 3.43 K/mcL Normal 1.70-7.00 [facility] Comment on above: Performed By: #### L [id number] #### LAB [address] [place], [place] [address] Jack Mendoza M.D. [id number] Neutrophils/100 WBC (Bld) 79.6 % Normal [facility] Comment on above: Performed By: #### L [id number] ####[facility] LAB [address] [address] Jack Mendoza M.D. [id number] Platelet mean volume (Bld) [Entitic vol] 9.7 fL Normal 9.4-12.4 [facility] Comment on above: Performed By: #### L [id number] ####[facility] LAB [address] [address] Jack Mendoza M.D. [id number] Platelets (Bld) [#/Vol] 111 10*3/uL Low 150-400 [facility] Comment on above: Performed By: #### L [id number] ####[facility] LAB [address] [address] Jack Mendoza M.D. [id number] RBC (Bld) [#/Vol] 4.65 10*6/uL Normal 4.50-5.90 [facility] Comment on above: Performed By: #### L [id number] ####[facility] LAB [address] [address] Jack Mendoza M.D. [id number] WBC (Bld) [#/Vol] 4.31 10*3/uL Low 4.50-11.00 [facility] Comment on above: Performed By: #### L [id number] ####[facility] LAB [address] [address] Jack Mendoza M.D. [id number] CONSULTon 10-17-2024 CONSULT Normal [facility] ESR Westergren method (Bld) [Velocity]on 10-17-2024 ESR (Bld) [Velocity] 49 mm/h [facility] Interpretation and review of laboratory results Abnormal [facility] HEMOGLOBIN A1Con 10-17-2024 Glucose [Mass/Vol] 131 mg/dL High 74-114 [facility] Comment on above: Performed By: #### 4 8202 ####[facility] LAB [address] [place], [place] [address] Jack Mendoza M.D. [id number] HbA1c (Bld) [Mass fraction] 6.2 % High 4.2-5.6 [facility] Comment on above: Performed By: #### 4 8202 #### LAB [address] [place], [place] [address] Jack Mendoza M.D. [id number] HbA1c (Bld) [Mass fraction]o n 10-17-2024 Average glucose Estimated from glycated hemoglobin (Bld) [Mass/Vol] 131 mg/dL High 74 - 114 mg/dL [facility] Interpretation and review of laboratory results Abnormal [facility] Hemoglobin A1con 10-17-2024 HbA1c (Bld) [Mass fraction] 6.2 % High 4.2 - 5.6 % [facility] MR FOOT RIGHT WITHOUT CONTRA STon 10-17-2024 MR FOOT RIGHT WITHOUT CONTRAST Normal [facility] Comment on above: Order Comment: Injur [...] and degenerative arthropathy. PD/ads Workstation ID: [id number] [employer] [facility] EXAMINATION: MR FOOT RIGHT WITHOUT CONTRAST [...] failure with hypoxia ([facility]CC) J44.1 COPD exacerbation ([facility]) L03.90 Cellulitis, unspecified cellulitis site A41.9 Sepsis, due to unspecified organism, unspecified whether acute organ dysfunction present ([facility]) S22.060A Compression fracture of T7 vertebra, initial encounter ([facility]) COMPARISON: None. TECHNIQUE: Multiplanar, multisequence imaging of [...] over the dorsum of the foot seen. [facility] Fortino Marina MD - 10/17/2024 EXAMINATION: [...] failure with hypoxia (HCC) J44.1 COPD exacerbation ([facility]) L03.90 Cellulitis, unspecified cellulitis site A41.9 Sepsis, due to unspecified organism, unspecified whether acute organ dysfunction present ([facility]) S22.060A Compression fracture of T7 vertebra, initial encounter ([facility]) COMPARISON: None. TECHNIQUE: Multiplanar, multisequence imaging of [...] and degenerative arthropathy. PD/ads Workstation ID: [id number] [facility] Radiology Study observation (narrative) [facility] MR Foot - right WO contrastO rdered By: Fortino Marina on 10-17-2024 [facility] Work Phone: SEDIMENTATION RATEon 025 SEDIMENTATION RATE, ERYTHROCYTE 49 mm/hr High 0-20 [facility] Comment on above: Performed By: #### 4 6477 ####[facility] LAB [address] [place] [address] Jack Mendoza M.D. [id number] XR THORACIC SPINE 2 VIEWSon 10-17-2024 XR THORACIC SPINE 2 VIEWS Normal [facility] Comment on above: Order Comment: Injur y/Trauma or Illness?:Illness/OtherHow long have you had these symptoms (acute/chronic)?:AcuteReason for exam?:Upright XR in TLSO braceHistory of cancer?:uSurgeries, chemotherapy, or radiation?:uType of Exam?:InitialAdditional signs and symptoms?:. XR Thoracic spine 2 Viewson 10-17-2024 Radiology Study observation (narrative) [facility] BASIC METABOLIC PANELon 09-23 Anion gap [Moles/Vol] 14 mmol/L Normal 10-20 [facility] Comment on above: Order Comment: [facility] has implemented the eGFR calculation approach that does not have a coefficient for race that conforms to the NKF-ASN Task Force Recommendations. Performed By: #### 4 6124 #### LAB [address] [address] Jack Mendoza M.D. [id number] Calcium [Mass/Vol] 8.7 mg/dL Normal 8.4-10.2 [facility] Comment on above: Order Comment: [facility] has implemented the eGFR calculation approach that does not have a coefficient for race that conforms to the NKF-ASN Task Force Recommendations. Performed By: #### 4 6124 #### LAB [address] [address] Jack Mendoza M.D. [id number] Chloride [Moles/Vol] 97 mmol/L Low 98-108 [facility] Comment on above: Order Comment: [facility] has implemented the eGFR calculation approach that does not have a coefficient for race that conforms to the NKF-ASN Task Force Recommendations. Performed By: #### 4 6124 #### LAB [address] [address] Jack Mendoza M.D. [id number] Creatinine [Mass/Vol] 0.66 mg/dL Normal 0.50-1.30 [facility] Comment on above: Order Comment: [facility] has implemented the eGFR calculation approach that does not have a coefficient for race that conforms to the NKF-ASN Task Force Recommendations. Performed By: #### 4 6124 #### LAB [address] [address] Jack Mendoza M.D. [id number] EGFR 109 mL/min/1.73 m2 Normal >=60 [facility] Comment on above: Order Comment: [facility] has implemented the eGFR calculation approach that does not have a coefficient for race that conforms to the NKF-ASN Task Force Recommendations. Result Comment: Ashley mated GFR was calculated using the 2020 CKD-EPI creatinine equation. Performed By: #### 4 6124 #### LAB [address] [address] Jack Mendoza M.D. [id number] Glucose [Mass/Vol] 156 mg/dL High 65-99 [facility] Comment on above: Order Comment: [facility] has implemented the eGFR calculation approach that does not have a coefficient for race that conforms to the NKF-ASN Task Force Recommendations. Performed By: #### 4 6124 ####[facility] LAB [address] [address] Jack Mendoza M.D. [id number] HCO3 (Bld) [Moles/Vol] 30 mmol/L Normal 21-32 [facility] Comment on above: Order Comment: [facility] has implemented the eGFR calculation approach that does not have a coefficient for race that conforms to the NKF-ASN Task Force Recommendations. Performed By: #### 4 6124 #### LAB [address] [address] Jack Mendoza M.D. [id number] Potassium [Moles/Vol] 4.4 mmol/L Normal 3.5-5.1 [facility] Comment on above: Order Comment: [facility] has implemented the eGFR calculation approach that does not have a coefficient for race that conforms to the NKF-ASN Task Force Recommendations. Performed By: #### 4 6124 ####[facility] LAB [address] [address] Jack Mendoza M.D. [id number] Sodium [Moles/Vol] 137 mmol/L Normal 135-145 [facility] Comment on above: Order Comment: [facility] has implemented the eGFR calculation approach that does not have a coefficient for race that conforms to the NKF-ASN Task Force Recommendations. Performed By: #### 4 6124 ####[facility] LAB [address] [address] Jack Mendoza M.D. [id number] Urea nitrogen [Mass/Vol] 18 mg/dL Normal 8-25 [facility] Comment on above: Order Comment: [facility] has implemented the eGFR calculation approach that does not have a coefficient for race that conforms to the NKF-ASN Task Force Recommendations. Performed By: #### 4 6124 #### LAB [address] [place], [place] [address] Jack Mendoza M.D. [id number] Urea nitrogen/Creatinine [Mass ratio] 27.3 mg/mg High 10.0-20.0 [facility] Comment on above: Order Comment: [facility] has implemented the eGFR calculation approach that does not have a coefficient for race that conforms to the NKF-ASN Task Force Recommendations. Performed By: #### 4 6124 #### LAB [address] [place], [place] [address] Jack Mendoza M.D. [id number] Basic metabolic 2000 panelon 10-16-2024 Anion gap [Moles/Vol] 14 mmol/L 10 - 20 mmol/L [facility] Calcium [Mass/Vol] 8.7 mg/dL 8.4 - 10. 2 mg/dL [facility] Chloride [Moles/Vol] 97 mmol/L Low 98 - 10 8 mmol/L [facility] Creatinine [Mass/Vol] 0.66 mg/dL 0.50 - 1.30 mg/dL [facility] GFR/1.73 sq M.predicted CKD-EPI (S/P/Bld) [Vol rate/Area] 109 - PINF [facility] Comment on above: Estimated GFR was ca lculated using the 2020 CKD-EPI creatinine equation. Glucose [Mass/Vol] 156 mg/dL High 65 - 99 mg/dL [facility] HCO3 [Moles/Vol] 30 mmol/L 21 - 32 mmol/L [facility] Interpretation and review of laboratory results Abnormal [facility] Potassium [Moles/Vol] 4.4 mmol/L 3.5 - 5.1 mmol/L [facility] Sodium [Moles/Vol] 137 mmol/L 135 - 145 mmol/L [facility] Urea nitrogen [Mass/Vol] 18 mg/dL 8 - 25 mg/dL [facility] Urea nitrogen/Creatinine [Mass ratio] 27.3 mg/mg High 10.0 - 20.0 [facility] has implemented the eGFR calculation approach that does not have a coefficient for race that conforms to the NKF-ASN Task Force Recommendations. [facility] CBCon 10-16-2024 AUTO NRBC 0.0 % Normal [facility] Comment on above: Performed By: #### 4 5218 #### LAB [address] [address] Jack Mendoza M.D. [id number] AUTO NRBC ABS COUNT 0.00 K/mcL Normal 0.00-0.00 [facility] Comment on above: Performed By: #### 4 5218 ####[facility] LAB [address] [address] Jack Mendoza M.D. [id number] Erythrocyte distribution width (RBC) [Ratio] 17.1 % High 11.6-14.8 [facility] Comment on above: Performed By: #### 4 5218 #### LAB [address] [address] Jack Mendoza M.D. [id number] Hematocrit (Bld) [Volume fraction] 36.6 % Low 41.0-53.0 [facility] Comment on above: Performed By: #### 4 5218 #### LAB [address] [address] Jack Mendoza M.D. [id number] Hemoglobin (Bld) [Mass/Vol] 10.6 g/dL Low 13.5-17.5 [facility] Comment on above: Performed By: #### 4 5218 #### LAB [address] [address] Jack Mendoza M.D. [id number] MCH (RBC) [Entitic mass] 20.2 pg Low 26.0-34.0 [facility] Comment on above: Performed By: #### 4 5218 #### LAB [address] [address] Jack Mendoza M.D. [id number] MCV (RBC) [Entitic vol] 69.8 fL Low 80.0-100.0 [facility] Comment on above: Performed By: #### 4 5218 ####[facility] LAB [address] [place], [place] [address] Jack Mendoza M.D. [id number] MEAN CORPUSCULAR HEMOGLOBIN CONC 29.0 g/dL Low 31.0-37.0 [facility] Comment on above: Performed By: #### 4 5218 #### LAB [address] [address] Jack Mendoza M.D. [id number] Platelet mean volume (Bld) [Entitic vol] 10.2 fL Normal 9.4-12.4 [facility] Comment on above: Performed By: #### 4 5218 #### LAB [address] [address] Jack Mendoza M.D. [id number] Platelets (Bld) [#/Vol] 116 10*3/uL Low 150-400 [facility] Comment on above: Performed By: #### 4 5218 #### LAB [address] [address] Jack Mendoza M.D. [id number] RBC (Bld) [#/Vol] 5.24 10*6/uL Normal 4.50-5.90 [facility] Comment on above: Performed By: #### 4 5218 #### LAB [address] [address] Jack Mendoza M.D. [id number] WBC (Bld) [#/Vol] 3.77 10*3/uL Low 4.50-11.00 [facility] Comment on above: Performed By: #### 4 5218 #### LAB [address] [address] Jack Mendoaz M.D. [id number] CBC panel Auto (Bld)on 10-16 Erythrocyte distribution width (RBC) [Entitic vol] 17.1 % High 11.6 - 14.8 % [facility] Hematocrit (Bld) [Volume fraction] 36.6 % Low 41.0 - 53.0 % [facility] Hemoglobin (Bld) [Mass/Vol] 10.6 g/dL Low 13.5 - 17.5 g/dL [facility] Interpretation and review of laboratory results Abnormal [facility] MCH (RBC) [Entitic mass] 20.2 pg Low 26.0 - 34.0 pg [facility] MCHC (RBC) [Mass/Vol] 29 g/dL Low 31.0 - 37.0 g/dL [facility] MCV (RBC) [Entitic vol] 69.8 fL Low 80.0 - 100.0 fL [facility] Nucleated RBC (Bld) [#/Vol] 0 10*3/uL [facility] Nucleated RBC/100 WBC (Bld) [Ratio] 0 % [facility] Platelet mean volume (Bld) [Entitic vol] 10.2 fL 9.4 - 12.4 fL [facility] Platelets (Bld) [#/Vol] 116 10*3/uL Low [facility] RBC (Bld) [#/Vol] 5.24 10*6/uL [facility] WBC (Bld) [#/Vol] 3.77 10*3/uL Low [facility] CONSULTon 10-16-2024 CONSULT Normal [facility] CT Thoracic and lumbar spine WO contraston [...] in the remaining thoracic and lumbar spine. 50 Cubes/BiondVaxr Workstation ID: [id number] [facility] EXAMINATION: CT THORACIC AND LUMBAR SPINE RECONSTRUCTED HISTORY: ORDERING SYSTEM PROVIDED HISTORY: fall; upper and lower back pain, TECHNOLOGIST PROVIDED HISTORY: Injury/Trauma Reason for exam: upper and lower back pain, fall Encounter Type: Initial Mechanism of injury: fall ORDERING SYSTEM PROVIDED DIAGNOSIS CODES: J96.01 Acute respiratory failure with hypoxia ([facility]) J44.1 COPD exacerbation ([facility]) L03.90 Cellulitis, unspecified cellulitis site A41.9 Sepsis, due to unspecified organism, unspecified whether acute organ dysfunction present ([facility]) COMPARISON: CT pulmonary arteries 07/02/2024. CT abdomen [...] spine: Straightening of the lumbar spine. Stable zzamrfyf-gz-twnzzj anterior wedging of L2. Stable mild anterior wedging of L1. No new compression deformities. No subluxation scattered wbte-nv-mnmeamub disc space narrowing. No central spinal canal poorly visualized secondary to intrinsic constraints of CT imaging. No high-grade spinal canal stenosis suspected. Please refer to dedicated imaging for details on the chest, abdomen, and pelvis. [employer] [facility] Jonathan Rodrigez MD - 09/23 EXAMINATION: CT THORACIC AND LUMBAR SPINE RECONSTRUCTED HISTORY: ORDERING SYSTEM PROVIDED HISTORY: fall; upper and lower back pain, TECHNOLOGIST PROVIDED HISTORY: Injury/Trauma Reason for exam: upper and lower back pain, fall Encounter Type: Initial Mechanism of injury: fall ORDERING SYSTEM PROVIDED DIAGNOSIS CODES: J96.01 Acute respiratory failure with hypoxia ([facility]) J44.1 COPD exacerbation ([facility]) L03.90 Cellulitis, unspecified cellulitis site A41.9 Sepsis, due to unspecified organism, unspecified whether acute organ dysfunction present ([facility]) COMPARISON: CT pulmonary arteries 07/02/2024. CT abdomen [...] spine: Straightening of the lumbar spine. Stable sjxtgsqk-cm-fcaxjg anterior wedging of L2. Stable mild anterior wedging of L1. No new compression deformities. No subluxation scattered sobp-ay-txhcpkor disc space narrowing. No central spinal canal [...] and lumbar spine. MATEUS/mjr Workstation ID: [id number] [facility] CT Thoracic and lumbar spine WO contrastOrdered By: Joanthan Rodrigez on 10-16-2024 [facility] Work Phone: H AND Mike 10-16-2024 H AND P Normal [facility] MR THORACIC SPINE WITHOUT CO NTRASTon 10-16-2024 MR THORACIC SPINE WITHOUT CONTRAST Normal [facility] Comment on above: Order Comment: Injur [...] thoracic spinal cord. DMG/alt Workstation ID: [id number] [employer] EXAMINATION: MR THORACIC SPINE WITHOUT CONTRAST HISTORY: [...] organism, unspecified whether acute organ dysfunction present ([facility]) S22.060A Compression fracture of T7 vertebra, initial encounter ([facility]) COMPARISON: CT chest, abdomen and pelvis, 10/15/2024. [...] abnormal signal in the thoracic spinal cord. [employer] [facility] Enrique Carrasco MD - 10/16/2024 EXAMINATION: [...] organism, unspecified whether acute organ dysfunction present ([facility]) S22.060A Compression fracture of T7 vertebra, initial encounter ([facility]) COMPARISON: CT chest, abdomen and pelvis, 10/15/2024. [...] thoracic spinal cord. DMG/alt Workstation ID: [id number] [facility] Radiology Study observation (narrative) [facility] MR Thoracic spine WO contras tOrdered By: Enrique Carrasco on 10-16-2024 [facility] Work Phone: Vitamin D, Total, 25-OHon 25-hydroxyvitamin D [Mass/Vol] 11 ng/mL Low 20 - 100 ng/mL [facility] Interpretation and review of laboratory results Abnormal [facility] Vitamin D Expected V alues Deficiency: 0-10 Insufficiency: 10-20 Sufficient: 20-100 Toxicity: >100 [facility] BLOOD CULTURE AEROBIC/ANAERO BICon 10-15-2024 BLOOD CULTURE AEROBIC/ANAEROBIC BLOOD CULTURE No Growth after 5 days Normal [facility] Comment on above: Performed By: #### 4 [id number] ####[facility] [address] [place], [place] [address] Jack Mendoza M.D. [id number] BLOOD CULTURE AEROBIC/ANAEROBIC BLOOD CULTURE No Growth after 5 days Normal [facility] Comment on above: Performed By: #### 4 [id number] ####[facility] [address] [place], [place] [address] Jack Mendoza M.D. [id number] CBC Auto Differentialon 09-23 Basophils (Bld) [#/Vol] 0.02 10*3/uL [facility] Basophils/100 WBC (Bld) 0.4 % [facility] Eosinophils (Bld) [#/Vol] 0.03 10*3/uL [facility] Eosinophils/100 WBC (Bld) 0.6 % [facility] Erythrocyte distribution width (RBC) [Entitic vol] 16.8 % High 11.6 - 14.8 % [facility] Hematocrit (Bld) [Volume fraction] 36.9 % Low 41.0 - 53.0 % [facility] Hemoglobin (Bld) [Mass/Vol] 10.9 g/dL Low 13.5 - 17.5 g/dL [facility] Immature granulocytes (Bld) [#/Vol] 0.01 10*3/uL [facility] Immature granulocytes/100 WBC (Bld) 0.2 % [facility] Comment on above: The IG parameter is the percentage of metamyelocytes, myelocytes and promyelocytes. An immature granulocyte count (IG) of 1% or more suggests the possibility of infection, an IG count of 3% is very likely related to an infection. Lymphocytes (Bld) [#/Vol] 0.39 10*3/uL Low [facility] Lymphocytes/100 WBC (Bld) 7.8 % [facility] MCH (RBC) [Entitic mass] 20.8 pg Low 26.0 - 34.0 pg [facility] MCHC (RBC) [Mass/Vol] 29.5 g/dL Low 31.0 - 37.0 g/dL [facility] MCV (RBC) [Entitic vol] 70.6 fL Low 80.0 - 100.0 fL [facility] Monocytes (Bld) [#/Vol] 0.35 10*3/uL [facility] Monocytes/100 WBC (Bld) 7 % [facility] Neutrophils (Bld) [#/Vol] 4.18 10*3/uL [facility] Neutrophils/100 WBC (Bld) 84 % [facility] Comment on above: Peripheral smear rev iewed manually Nucleated RBC (Bld) [#/Vol] 0 10*3/uL [facility] Nucleated RBC/100 WBC (Bld) [Ratio] 0 % [facility] Platelet mean volume (Bld) [Entitic vol] 9.1 fL Low 9.4 - 12.4 fL [facility] Platelets (Bld) [#/Vol] 121 10*3/uL Low [facility] RBC (Bld) [#/Vol] 5.23 10*6/uL [facility] ealth WBC (Bld) [#/Vol] 4.98 10*3/uL [facility] WITH AUTO DIFFERENTIALon 10-15-2024 AUTO NRBC 0.0 % [facility] Comment on above: Performed By: #### L [id number] #### LAB [address] [place] [address] Jack Mendoza M.D. [id number] AUTO NRBC ABS COUNT 0.00 K/mcL Normal 0.00-0.00 [facility] Comment on above: Performed By: #### L [id number] #### LAB [address] [place] [address] Jack Mendoza M.D. [id number] BASOPHILS ABSOLUTE COUNT 0.02 K/mcL Normal 0.00-0.30 [facility] Comment on above: Performed By: #### L [id number] #### LAB [address] [place] [address] Jack Mendoza M.D. [id number] Basophils/100 WBC (Bld) 0.4 % [facility] Comment on above: Performed By: #### L [id number] #### LAB [address] [place] [address] Jack Mendoza M.D. [id number] Eosinophils (Bld) [#/Vol] 0.03 10*3/uL Normal 0.00-0.50 [facility] Comment on above: Performed By: #### L [id number] #### LAB [address] [place] [address] Jack Mendoza M.D. [id number] Eosinophils/100 WBC (Bld) 0.6 % [facility] Comment on above: Performed By: #### L [id number] #### LAB [address] [place] [address] Jack Mendoza M.D. [id number] Erythrocyte distribution width (RBC) [Ratio] 16.8 % High 11.6-14.8 [facility] Comment on above: Performed By: #### L [id number] #### LAB [address] [place] [address] Jack Mendoza M.D. [id number] Hematocrit (Bld) [Volume fraction] 36.9 % Low 41.0-53.0 [facility] Comment on above: Performed By: #### L [id number] #### LAB [address] [address] Jack Mendoza M.D. [id number] Hemoglobin (Bld) [Mass/Vol] 10.9 g/dL Low 13.5-17.5 [facility] Comment on above: Performed By: #### L [id number] #### LAB [address] [place] [address] Jack Mendoza M.D. [id number] IG ABSOLUTE 0.01 K/mcL Normal 0.00-0.30 [facility] Comment on above: Performed By: #### L [id number] #### LAB [address] [place] [address] Jack Mendoza M.D. [id number] IG PERCENT 0.20 % Normal [facility] Comment on above: Result Comment: The IG parameter is the percentage of metamyelocytes, myelocytes and promyelocytes. An immature granulocyte count (IG) of 1% or more suggests the possibility of infection, an IG count of 3% is very likely related to an infection. Performed By: #### L [id number] #### LAB [address] [place] [address] Jack Mendoza M.D. [id number] Lymphocytes (Bld) [#/Vol] 0.39 10*3/uL Low 0.90-4.00 [facility] Comment on above: Performed By: #### L [id number] #### LAB [address] [place] [address] Jack Mendoza M.D. [id number] Lymphocytes/100 WBC (Bld) 7.8 % Normal [facility] Comment on above: Performed By: #### L [id number] #### LAB [address] [address] Jack Mendoza M.D. [id number] MCH (RBC) [Entitic mass] 20.8 pg Low 26.0-34.0 [facility] Comment on above: Performed By: #### L [id number] ####[facility] [address] [place] [address] Jack Mendoza M.D. [id number] MCV (RBC) [Entitic vol] 70.6 fL Low 80.0-100.0 [facility] Comment on above: Performed By: #### L [id number] #### LAB [address] [address] Jack Mendoza M.D. [id number] MEAN CORPUSCULAR HEMOGLOBIN CONC 29.5 g/dL Low 31.0-37.0 [facility] Comment on above: Performed By: #### L [id number] #### LAB [address] [place] [address] Jack Mendoza M.D. [id number] Monocytes (Bld) [#/Vol] 0.35 10*3/uL Normal 0.30-0.90 [facility] Comment on above: Performed By: #### L [id number] #### LAB [address] [place] [address] Jack Mendoza M.D. [id number] Monocytes/100 WBC (Bld) 7.0 % Normal [facility] Comment on above: Performed By: #### L [id number] ####[facility] [address] [place] [address] Jack Mendoza M.D. [id number] NEUTROPHILS ABSOLUTE COUNT 4.18 K/mcL Normal 1.70-7.00 [facility] Comment on above: Performed By: #### L [id number] #### LAB [address] [place] [address] Jack Mendoza M.D. [id number] Neutrophils/100 WBC (Bld) 84.0 % Normal [facility] Comment on above: Result Comment: Tiffany pheral smear reviewed manually Performed By: #### L [id number] #### LAB [address] [address] Jack Mendoza M.D. [id number] Platelet mean volume (Bld) [Entitic vol] 9.1 fL Low 9.4-12.4 [facility] Comment on above: Performed By: #### L [id number] #### LAB [address] [place] [address] Jack Mendoza M.D. [id number] Platelets (Bld) [#/Vol] 121 10*3/uL Low 150-400 [facility] Comment on above: Performed By: #### L [id number] #### LAB [address] [place] [address] Jack Mendoza M.D. [id number] RBC (Bld) [#/Vol] 5.23 10*6/uL Normal 4.50-5.90 [facility] Comment on above: Performed By: #### L [id number] #### LAB [address] [place] [address] Jack Mendoza M.D. [id number] WBC (Bld) [#/Vol] 4.98 10*3/uL Normal 4.50-11.00 [facility] Comment on above: Performed By: #### L [id number] #### LAB [address] [place] [address] Jack Mendoza M.D. [id number] CBC and Diff Morphologyon Dacrocytes LM Ql (Bld) Few [facility] Ovalocytes LM Ql (Bld) Moderate [facility] Platelets LM Ql (Bld) Decreased Abnormal Normal [facility] Polychromasia LM Ql (Bld) Few [facility] RBC morphology finding Nom (Bld) See Comment [facility] Comment on above: RBC Indices confirme d with manual peripheral smear review. Stomatocytes LM Ql (Bld) Few [facility] Target cells LM Ql (Bld) Few [facility] COMPREHENSIVE METABOLIC PANE Ras 10-15-2024 Albumin [Mass/Vol] 3.5 g/dL Normal 3.2-5.2 [facility] Comment on above: Order Comment: [facility] has implemented the eGFR calculation approach that does not have a coefficient for race that conforms to the NKF-ASN Task Force Recommendations. Performed By: #### 4 6117 #### LAB [address] [place] [address] Jack Mendoza M.D. [id number] ALP [Catalytic activity/Vol] 89 U/L Normal 40-150 [facility] Comment on above: Order Comment: [facility] has implemented the eGFR calculation approach that does not have a coefficient for race that conforms to the NKF-ASN Task Force Recommendations. Performed By: #### 4 6126 #### LAB [address] [place] [address] Jack Mendoza M.D. [id number] ALT [Catalytic activity/Vol] 15 U/L [facility] Comment on above: Order Comment: [facility] has implemented the eGFR calculation approach that does not have a coefficient for race that conforms to the NKF-ASN Task Force Recommendations. Performed By: #### 4 6152 #### LAB [address] [place] [address] Jack Mendoza M.D. [id number] Anion gap [Moles/Vol] 14 mmol/L Normal 10-20 [facility] Comment on above: Order Comment: [facility] has implemented the eGFR calculation approach that does not have a coefficient for race that conforms to the NKF-ASN Task Force Recommendations. Performed By: #### 4 6164 #### LAB [address] [address] Jack Mendoza M.D. [id number] AST [Catalytic activity/Vol] 28 U/L [facility] Comment on above: Order Comment: [facility] has implemented the eGFR calculation approach that does not have a coefficient for race that conforms to the NKF-ASN Task Force Recommendations. Performed By: #### 4 6126 #### LAB [address] [address] Jack Mendoza M.D. [id number] Bilirubin [Mass/Vol] 0.7 mg/dL Normal 0.0-1.3 [facility] Comment on above: Order Comment: [facility] has implemented the eGFR calculation approach that does not have a coefficient for race that conforms to the NKF-ASN Task Force Recommendations. Performed By: #### 4 6126 #### LAB [address] [address] Jack Mendoza M.D. [id number] Calcium [Mass/Vol] 8.8 mg/dL Normal 8.4-10.2 [facility] Comment on above: Order Comment: [facility] has implemented the eGFR calculation approach that does not have a coefficient for race that conforms to the NKF-ASN Task Force Recommendations. Performed By: #### 4 6126 #### LAB [address] [address] Jack Mendoza M.D. [id number] Chloride [Moles/Vol] 98 mmol/L Normal 98-108 [facility] Comment on above: Order Comment: [facility] has implemented the eGFR calculation approach that does not have a coefficient for race that conforms to the NKF-ASN Task Force Recommendations. Performed By: #### 4 6126 #### LAB [address] [place] [address] Jack Mendoza M.D. [id number] Creatinine [Mass/Vol] 0.69 mg/dL Normal 0.50-1.30 [facility] Comment on above: Order Comment: [facility] has implemented the eGFR calculation approach that does not have a coefficient for race that conforms to the NKF-ASN Task Force Recommendations. Performed By: #### 4 6126 #### LAB [address] [place] [address] Jack Mendoza M.D. [id number] EGFR 107 mL/min/1.73 m2 Normal >=60 [facility] Comment on above: Order Comment: [facility] has implemented the eGFR calculation approach that does not have a coefficient for race that conforms to the NKF-ASN Task Force Recommendations. Result Comment: Ashley mated GFR was calculated using the 2020 CKD-EPI creatinine equation. Performed By: #### 4 6126 #### LAB [address] [place] [address] Jack Mendoza M.D. [id number] Glucose [Mass/Vol] 139 mg/dL High 65-99 [facility] Comment on above: Order Comment: [facility] has implemented the eGFR calculation approach that does not have a coefficient for race that conforms to the NKF-ASN Task Force Recommendations. Performed By: #### 4 6126 #### LAB [address] [place] [address] Jack Mendoza M.D. [id number] HCO3 (Bld) [Moles/Vol] 33 mmol/L High 21-32 [facility] Comment on above: Order Comment: [facility] has implemented the eGFR calculation approach that does not have a coefficient for race that conforms to the NKF-ASN Task Force Recommendations. Performed By: #### 4 6126 #### LAB [address] [address] Jack Mendoza M.D. [id number] Potassium [Moles/Vol] 4.1 mmol/L Normal 3.5-5.1 [facility] Comment on above: Order Comment: [facility] has implemented the eGFR calculation approach that does not have a coefficient for race that conforms to the NKF-ASN Task Force Recommendations. Performed By: #### 4 6126 #### LAB [address] [place] [address] Jack Mendoza M.D. [id number] Protein [Mass/Vol] 7.5 g/dL Normal 6.0-8.0 [facility] Comment on above: Order Comment: [facility] has implemented the eGFR calculation approach that does not have a coefficient for race that conforms to the NKF-ASN Task Force Recommendations. Performed By: #### 4 6626 #### LAB [address] [address] Jack Mendoza M.D. [id number] Sodium [Moles/Vol] 141 mmol/L Normal 135-145 [facility] Comment on above: Order Comment: [facility] has implemented the eGFR calculation approach that does not have a coefficient for race that conforms to the NKF-ASN Task Force Recommendations. Performed By: #### 4 6126 #### LAB [address] [place] [address] Jack Mendoza M.D. [id number] Urea nitrogen [Mass/Vol] 16 mg/dL Normal 8-25 [facility] Comment on above: Order Comment: [facility] has implemented the eGFR calculation approach that does not have a coefficient for race that conforms to the NKF-ASN Task Force Recommendations. Performed By: #### 4 6126 #### LAB [address] [place] [address] Jack Mendoza M.D. [id number] Urea nitrogen/Creatinine [Mass ratio] 23.2 mg/mg High 10.0-20.0 [facility] Comment on above: Order Comment: [facility] has implemented the eGFR calculation approach that does not have a coefficient for race that conforms to the NKF-ASN Task Force Recommendations. Performed By: #### 4 6126 #### LAB [address] [place] [address] Jack Mendoza M.D. [id number] CONSULTon 10-15-2024 CONSULT Normal [facility] COVID-19/INFLUENZA A,B MOLEC ULARon 10-15-2024 SARS-CoV-2 (COVID-19) Ab IA Ql SARS-COV-2 (URSZULA) Not Detected INFLUENZA A (URSZULA) Not Detected INFLUENZA B (URSZULA) Not Detected Normal Not Detected [facility] Comment on above: Performed By: #### L [id number] #### LAB [address] [address] Jack Mendoza M.D. [id number] CT Abdomen and Pelvis W cont rast Charli 10-15-2024 1. Suboptimal pulmonary artery opacification, but no evidence of pulmonary emboli or other acute thoracic findings. 2. Cirrhotic liver morphology similar to prior with stigmata of portal venous hypertension. 3. No acute intraabdominal findings otherwise. 4. New fracture of T7. Workstation ID: [id number] [employer] EXAMINATION: CTA PULM ART AND CT ABD [...] stable. Moderate degenerative changes of the spine. [employer] Fransisco Camilo MD - 10/15/2024 EXAMINATION: CTA PULM ART [...] New fracture of T7. Workstation ID: [id number] [facility] Radiology Study observation (narrative) [facility] CT Abdomen and Pelvis W cont rast IVOrdered By: Fransisco Camilo on 10-15-2024 [facility] Work Phone: CT THORACIC AND LUMBAR SPINE RECONSTRUCTEDon 10-15-2024 CT THORACIC AND LUMBAR SPINE RECONSTRUCTED Normal [facility] Comment on above: Order Comment: Injur y/Trauma or Illness?:Injury/TraumaHow long have you had these symptoms (acute/chronic)?:AcuteReason for exam?:upper and lower back pain, fallType of Exam?:InitialMechanism of injury?:fall CT Thoracic and lumbar spine WO contraston 10-15-2024 Radiology Study observation (narrative) [facility] CTA PULM ART AND CT ABD PELV IS WITH IV CONTRASTon 10-15-[address] ABD PELVIS WITH IV CONTRAST Normal [facility] Comment on above: Order Comment: Injur y/Trauma or Illness?:Illness/OtherHow long have you had these symptoms (acute/chronic)?:AcuteReason for exam?:suspected PE and abdominal pain, sobType of Exam?:InitialAdditional signs and symptoms?:fall, previous leg infection Comprehensive metabolic 2000 panelon 10-15-2024 Albumin [Mass/Vol] 3.5 g/dL 3.2 - 5.2 g/dL [facility] ALP [Catalytic activity/Vol] 89 U/L 40 - 150 U/L [facility] ALT [Catalytic activity/Vol] 15 U/L [facility] Anion gap [Moles/Vol] 14 mmol/L 10 - 20 mmol/L [facility] AST [Catalytic activity/Vol] 28 U/L [facility] Bilirubin [Mass/Vol] 0.7 mg/dL 0.0 - 1 .3 mg/dL [facility] Calcium [Mass/Vol] 8.8 mg/dL 8.4 - 10. 2 mg/dL [facility] Chloride [Moles/Vol] 98 mmol/L 98 - 10 8 mmol/L [facility] Creatinine [Mass/Vol] 0.69 mg/dL 0.50 - 1.30 mg/dL [facility] GFR/1.73 sq M.predicted CKD-EPI (S/P/Bld) [Vol rate/Area] 107 - PINF [facility] Comment on above: Estimated GFR was ca lculated using the 2020 CKD-EPI creatinine equation. Glucose [Mass/Vol] 139 mg/dL High 65 - 99 mg/dL [facility] HCO3 [Moles/Vol] 33 mmol/L High 21 - 32 mmol/L [facility] Interpretation and review of laboratory results Abnormal [facility] Potassium [Moles/Vol] 4.1 mmol/L 3.5 - 5.1 mmol/L [facility] Protein [Mass/Vol] 7.5 g/dL 6.0 - 8.0 g/dL [facility] Sodium [Moles/Vol] 141 mmol/L 135 - 145 mmol/L [facility] Urea nitrogen [Mass/Vol] 16 mg/dL 8 - 25 mg/dL [facility] Urea nitrogen/Creatinine [Mass ratio] 23.2 mg/mg High 10.0 - 20.0 [facility] has implemented the eGFR calculation approach that does not have a coefficient for race that conforms to the NKF-ASN Task Force Recommendations. [facility] Critical Careon 10-15-2024 Jose Lozano MD 11:52 PM Critical Care Performed by: Jose Lozano MD Authorized by: Jose Lozano MD Total critical care time: 50 minutes Critical care was time spent personally by me on the following activities: examination of patient, pulse oximetry and re-evaluation of patient's condition. [facility] D-DIMER, QUANTITATIVEon 09-23 D-DIMER QUANTITATIVE 13.56 mcg/mL FEU High 0.27-0.49 [facility] Comment on above: Order Comment: A D-d [...] By: #### 4 5434 #### LAB [address] [place], [place] [address] Jack Mendoza M.D. [id number] D-Dimer, QuantitativeOrdered By: Molly Costa on 10-15-2024 Fibrin D-dimer FEU (PPP) [Mass/Vol] 13.56 High [facility] Interpretation and review of laboratory results Abnormal [facility] A D-dimer concentrat ion of <0.5 micrograms per milliliter FEU is considered a low probability for pulmonary embolus (PE) and deep venous thrombosis (DVT). Results of this test should always be interpreted in conjunction with the patient's medical history,clinical presentation, and other findings. Clinical diagnosis should not be based on the results of the D-dimer alone. [facility] ED Prov Noteon 10-15-2024 ED Prov Note Normal [facility] EKGon 10-15-2024 [facility] Influenza virus A and B RNA and SARS-CoV-2 (COVID-19) N gene panel HERMAN+probe (Resp)Ordered By: Sara Barba on 10-15-2024 FLUAV RNA HERMAN+probe Ql (Unsp spec) Not detected Not Detected [facility] FLUBV RNA HERMAN+probe Ql (Unsp spec) Not detected Not Detected [facility] SARS-CoV-2 (COVID-19) RNA HERMAN+probe Ql (Resp) Not detected Not Detected [facility] MORPHOLOGYon 10-15-2024 OVAL SCAN Moderate Normal [facility] Comment on above: Performed By: #### L [id number] ####[facility] [address] [address] Jack Mendoza M.D. [id number] PLATELET ESTIMATE Decreased Abnormal Normal [facility] Comment on above: Performed By: #### L [id number] ####[facility] [address] [place] [address] Jack Mendoza M.D. [id number] POLY SCAN Few Normal [facility] Comment on above: Performed By: #### L [id number] ####[facility] [address] [address] Jack Mendoza M.D. [id number] RBC MORPH SCAN See Comment Normal [facility] Comment on above: Result Comment: RBC Indices confirmed with manual peripheral smear review. Performed By: #### L [id number] ####[facility] [address] [address] Jack Mendoza M.D. [id number] STOMATOCYTES Few Normal [facility] Comment on above: Performed By: #### L [id number] ####[facility] [address] [address] Jack Mendoza M.D. [id number] T[employer] CELL SCAN Few Normal [facility] Comment on above: Performed By: #### L [id number] ####[facility] [address] [address] Jack Mendoza M.D. [id number] TEAR DROP CELL SCAN Few Normal [facility] Comment on above: Performed By: #### L [id number] ####[facility] [address] [address] Jack Mendoza M.D. [id number] MRSA DNA AMPLIFIED PROBEon 0 10-15-2024 MRSA DNA AMPLIFIED PROBE Negative Normal Not Detected, MRSA NEGATIVE [facility] Comment on above: Performed By: #### 4 8061 #### LAB [address] [place], [place] [address] Jack Mendoza M.D. [id number] MRSA DNA Amplified Probeon 0 10-15-2024 MRSA DNA HERMAN+probe Ql (Unsp spec) Negative Not Detected, MRSA NEGATIVE [facility] MRSA DNA HERMAN+probe Ql (Unsp spec)on 10-15-2024 Interpretation and review of laboratory results Normal [facility] NT PRO BNPon 10-15-2024 Natriuretic peptide B (Bld) [Mass/Vol] 163 pg/mL Normal 0-300 [facility] Comment on above: Order Comment: Pride Study Cut-offsRule In:< /= 50 Years >450 pg/mL51 Years - 75 Years >900 pg/mL76 Years - 99 Years >1800 pg/mLRule Out:All patients <300 pg/mL Performed By: #### 4 7395 #### LAB [address] [place], [place] [address] Jack Mendoza M.D. [id number] NT Pro BNPon 10-15-2024 Natriuretic peptide.B prohormone N-Terminal [Mass/Vol] 163 pg/mL 0 - 300 pg/mL [facility] Natriuretic peptide.B prohor randi N-Terminal [Mass/Vol]on 10-15-2024 Pride Study Cut-offs Rule In: < /= 50 Years >450 pg/mL 51 Years - 75 Years >900 pg/mL 76 Years - 99 Years >1800 pg/mL Rule Out: All patients <300 pg/mL [facility] No Panel Informationon 10-15 1. No acute fracture or dislocation of the pelvis or either tibia or fibula is seen. If there is concern for an occult injury of the pelvis, cross-sectional imaging is recommended. Otherwise, if pain persists, repeat radiographs are recommended in 7-10 days. [facility] Workstation ID: [id number] [employer] [facility] EXAMINATION: XR PELVIS 1 VIEW (STANDARD); [...] in 7-10 days. ANNE/karyn Workstation ID: [id number] [facility] Interpretation and review of laboratory results Abnormal [facility] Interpretation and review of laboratory results Normal [facility] No Panel InformationOrdered By: Rodolfo aGrcia on 10-15-2024 [facility] Work Phone: Obtain venous blood gases an d performon 10-15-2024 [facility] POC VENOUS BLOOD GAS PANEL-P MARYANA Ortega 10-15-2024 BASE EXCESS, VENOUS 9.7 High -2.0-2.0 [facility] Comment on above: Performed By: #### 4 8717 ####[facility] [address] [place], [place] [address] Jack Mendoza M.D. [id number] CALCIUM IONIZED 4.5 mg/dL Normal 4.5-5.3 [facility] Comment on above: Performed By: #### 4 8717 ####[facility] [address] [place], [place] [address] Jack Mendoza M.D. [id number] CARBOXYHEMOGLOBIN 2.7 % of total Hb High <=1.5 [facility] Comment on above: Result Comment: Refe rence Ranges:Suburban Non-smokers: <1.5%Smokers: 1.5-5.0%Heavy Smokers: 5.0-9.0% Performed By: #### 4 8717 ####[facility] [address] [place], [place] [address] Jack Mendoza M.D. [id number] Chloride [Moles/Vol] 96 mmol/L Low 98-108 [facility] Comment on above: Performed By: #### 4 8717 ####[facility] [address] [place], [place] [address] Jack Mendoza M.D. [id number] FIO2 21 Normal [facility] Comment on above: Performed By: #### 4 8717 ####[facility] [address] [place] [address] Jack Mendoza M.D. [id number] Glucose [Mass/Vol] 134 mg/dL High 65-99 [facility] Comment on above: Performed By: #### 4 8717 ####[facility] [address] [place] [address] Jack Mendoza M.D. [id number] HCO3 (Bld) [Moles/Vol] 37.3 mmol/L High 24.0-28.0 [facility] Comment on above: Performed By: #### 4 8717 ####[facility] [address] [place] [address] Jack Mendoza M.D. [id number] Hematocrit (Bld) [Volume fraction] 35.1 % Low 41.0-53.0 [facility] Comment on above: Performed By: #### 4 8717 #### LAB [address] [place] [address] Jack Mendoza M.D. [id number] Hemoglobin (Bld) [Mass/Vol] 11.4 g/dL Low 13.5-17.5 [facility] Comment on above: Performed By: #### 4 8717 #### LAB [address] [place] [address] Jack Mendoza M.D. [id number] LACTIC ACID, WHOLE BLOOD 1.1 mmol/L Normal 0.6-2.0 [facility] Comment on above: Performed By: #### 4 8717 ####[facility] [address] [place] [address] Jack Mendoza M.D. [id number] METHEMOGLOBIN < Normal 0.0-2.0 [facility] Comment on above: Performed By: #### 4 8717 ####[facility] [address] [place] [address] Jack Mendoza M.D. [id number] O2HB 55.3 % Normal No established reference range [facility] Comment on above: Performed By: #### 4 8717 ####[facility] [address] [place] [address] Jack Mendoza M.D. [id number] Oxygen saturation in Blood 57.2 % Normal 40.0-70.0 [facility] Comment on above: Performed By: #### 4 8717 #### LAB [address] [place] [address] Jack Mendoza M.D. [id number] PCO2 VENOUS 65.4 mm Hg High 41.0-51.0 [facility] Comment on above: Performed By: #### 4 8717 ####[facility] [address] [place] [address] Jack Mendoza M.D. [id number] PH VENOUS 7.36 Normal 7.32-7.42 [facility] Comment on above: Performed By: #### 4 8717 #### LAB [address] [place] [address] Jack Mendoza M.D. [id number] PO2 VENOUS 34 mm Hg Normal 25-40 [facility] Comment on above: Performed By: #### 4 8717 ####[facility] [address] [place] [address] Jack Mendoza M.D. [id number] Potassium [Moles/Vol] 3.9 mmol/L Normal 3.5-5.1 [facility] Comment on above: Performed By: #### 4 8717 #### LAB [address] [place] [address] Jack Mendoza M.D. [id number] Sodium [Moles/Vol] 142 mmol/L Normal 135-145 [facility] Comment on above: Performed By: #### 4 8717 ####[facility] [address] [place] [address] Jack Mendoza M.D. [id number] SPECIMEN SOURCE RADIANCE Not specified Normal [facility] Comment on above: Performed By: #### 4 8717 #### LAB [address] [place] [address] Jack Mendoza M.D. [id number] POC Venous Blood Gas Panel-[facility] 10-15-2024 Base excess Calc (BldV) [Moles/Vol] 9.7 mmol/L High -2.0 - 2.0 [facility] Calcium.ionized [Mass/Vol] 4.5 mg/dL 4.5 - 5.3 mg/dL [facility] Carboxyhemoglobin (BldA) [Mass fraction] 2.7 High [facility] Comment on above: Reference Ranges: [facility] Non-smokers: <1.5% Smokers: 1.5-5.0% Heavy Smokers: 5.0-9.0% CO2 (BldV) [Partial pressure] 65.4 mm[Hg] High [facility] Glucose post fast [Mass/Vol] 134 mg/dL High 65 - 99 mg/dL [facility] Hematocrit (BldA) [Volume fraction] 35.1 % Low 41.0 - 53.0 % [facility] Inhaled oxygen concentration 21 % [facility] Interpretation and review of laboratory results Abnormal [facility] Lactate [Moles/Vol] 1.1 mmol/L 0.6 - 2. 0 mmol/L [facility] Methemoglobin (BldA) [Mass fraction] % 0.0 - 2.0 % [facility] Oxygen (BldV) [Partial pressure] 34 mm[Hg] [facility] Oxygen saturation in Venous blood 57.2 % 40.0 - 70.0 % [facility] Oxyhemoglobin (BldA) [Mass fraction] 55.3 % No established reference range [facility] pH (BldV) 7.36 [pH] 7.32 - 7.42 [facility] Specimen source Nom (Unsp spec) Not specified [facility] TROPONINon 10-15-2024 TROPONIN T DELTA CHANGE INTERPRETATION Possible acute cardiac injury. Consider additional troponin testing and correlate with clinical factors. Normal [facility] Comment on above: Performed By: #### 4 6604 #### LAB [address] [place], [place] [address] Jack Mendoza M.D. [id number] TROPONIN T DELTA DIFFERENCE 10 ng/L Off scale high < = -/+ 7 change [facility] Comment on above: Performed By: #### 4 6608 #### LAB [address] [place], [place] [address] Jack Mendoza M.D. [id number] TROPONIN T NG/L 20 ng/L Normal <=22 [facility] Comment on above: Performed By: #### 4 6608 #### LAB [address] [place] [address] Jack Mendoza M.D. [id number] BASELINE TROPONIN T NG/L 10 ng/L Normal <=22 [facility] Comment on above: Performed By: #### 4 6608 #### LAB [address] [place] [address] Jack Mendoza M.D. [id number] TROPONIN T INTERPRETATION Normal Normal [facility] Comment on above: Performed By: #### 4 6608 #### LAB [address] [place] [address] Jack Mendoza M.D. [id number] Troponin x 2 (Now and Repeat in 3 hours)Ordered By: Joslyn Page on 10-15-2024 Delta Difference Troponin T 10 ng/L Critically high < = -/+ 7 change [facility] Interp Troponin T Delta Change Possible acute cardiac injury. Consider additional troponin testing and correlate with clinical factors. [facility] Interpretation and review of laboratory results Abnormal [facility] Troponin T.cardiac High sensitivity method [Mass/Vol] 20 ng/L NINF - 22 ng/L [facility] Troponin x 2 (Now and Repeat in 3 hours)on 10-15-2024 Troponin T 10 ng/L NINF - 22 ng/L [facility] Troponin T Interpretation Normal [facility] VITAMIN D, TOTAL, 25-OHon VITAMIN D 25-HYDROXY 11 ng/mL Low 20-100 [facility] Comment on above: Order Comment: Vitam in D Expected ValuesDeficiency: 0-10Insufficiency: 10-20Sufficient: 20-100Toxicity: >100 Performed By: #### 4 6678 #### LAB [address] [place] [address] Jack Mendoza M.D. [id number] XR CHEST PA/APon 10-15-2024 XR CHEST PA/AP Normal [facility] Comment on above: Order Comment: Injur y/Trauma or Illness?:Illness/OtherHow long have you had these symptoms (acute/chronic)?:AcuteReason for exam?:shortness of breathHistory of cancer?:uSurgeries, chemotherapy, or radiation?:uType of Exam?:InitialAdditional signs and symptoms?:chest pain XR Chest PA and Abdomen APon 10-15-2024 No acute cardiopulmonary process. Workstation ID: [id number] [employer] EXAMINATION: XR CHEST PA/AP HISTORY: ORDERING SYSTEM [...] normal in size. Bony thorax is unremarkable. [employer] [facility] Mariaelena Thompson MD - 10/15/2024 EXAMINATION: [...] No acute cardiopulmonary process. Workstation ID: [id number] [facility] Radiology Study observation (narrative) [facility] XR Chest PA and Abdomen APOr dered By: Mariaelena Thompson on 10-15-2024 [facility] Work Phone: XR PELVIS 1 VIEW (STANDARD)o n 10-15-2024 XR PELVIS 1 VIEW (STANDARD) Normal [facility] Comment on above: Order Comment: Injur y/Trauma or Illness?:Injury/TraumaHow long have you had these symptoms (acute/chronic)?:AcuteReason for exam?:fallHistory of cancer?:uSurgeries, chemotherapy, or radiation?:uType of Exam?:InitialMechanism of injury?:fall XR Pelvis 1 or 2 [facility] Radiology Study observation (narrative) [facility] XR TIBIA FIBULA LEFT 2 VIEWS on 10-15-2024 XR TIBIA FIBULA LEFT 2 VIEWS Normal [facility] Comment on above: Order Comment: Injur y/Trauma or Illness?:Injury/TraumaHow long have you had these symptoms (acute/chronic)?:AcuteReason for exam?:fallHistory of cancer?:uSurgeries, chemotherapy, or radiation?:uType of Exam?:InitialMechanism of injury?:cellulitus,weeping XR TIBIA FIBULA RIGHT 2 VIEW Son 10-15-2024 XR TIBIA FIBULA RIGHT 2 VIEWS Normal [facility] Comment on above: Order Comment: Injur y/Trauma or Illness?:Injury/TraumaHow long have you had these symptoms (acute/chronic)?:AcuteReason for exam?:fallHistory of cancer?:uSurgeries, chemotherapy, or radiation?:uType of Exam?:InitialMechanism of injury?:cellulitus,weeping XR Tibia and Fibula - left 2 [facility] 10-15-2024 Radiology Study observation (narrative) [facility] XR Tibia and Fibula - right 2 [facility] 10-15-2024 Radiology Study observation (narrative) [facility] BODY FLUID AEROBIC CULTUREon 07-05-2024 BODY FLUID AEROBIC CULTURE AEROBIC CULTURE No Growth after 5 days GRAM STAIN RESULT Few WBC No Organisms Seen Normal [facility] Comment on above: Performed By: #### 4 4016 ####[facility] [address] [place], [place] [address] Venancio Richardson M.D. [id number] Disch Summon 07-05-2024 Disch Summ Normal [facility] SYNOVIAL FLUID ANALYSISon APPEARANCE, SNF Cloudy Abnormal Clear [facility] Comment on above: Performed By: #### 4 5230 #### LAB [address] [place], [place] [address] Jack Mendoza M.D. [id number] CALCIUM PYROPHOSPHATE, SNF Negative Normal Negative [facility] Comment on above: Performed By: #### 4 5230 #### LAB [address] [place] [address] Jack Mendoza M.D. [id number] COLOR, SNF Light Red Abnormal Straw [facility] Comment on above: Performed By: #### 4 5230 #### LAB [address] [place] [address] Jack Mendoza M.D. [id number] FIBRIN CLOT, SNF Absent Normal Absent [facility] Comment on above: Performed By: #### 4 5230 #### LAB [address] [place] [address] Jack Mendoza M.D. [id number] Lymphocytes/100 WBC (Bld) 0 % Normal 0-0 [facility] Comment on above: Performed By: #### 4 5230 #### LAB [address] [place] [address] Jack Mendoza M.D. [id number] Monocytes/100 WBC (Bld) 0 % Normal 00 [facility] Comment on above: Performed By: #### 4 5230 #### LAB [address] [place] [address] Jack Mendoza M.D. [id number] Neutrophils/100 WBC (Bld) 100 % High 0-25 [facility] Comment on above: Performed By: #### 4 5230 #### LAB [address] [place] [address] Jack Mendoza M.D. [id number] RBC, SNF [address]1920 /mcL High 0-0 [facility] Comment on above: Performed By: #### 4 5230 #### LAB [address] [place] [address] Jakc Mendoza M.D. [id number] URATES, SNF Negative Normal Negative [facility] Comment on above: Performed By: #### 4 5230 #### LAB [address] [place] [address] Jack Mendoza M.D. [id number] WBC/NUC CELLS, SNF [address] /mcL High 0-200 [facility] Comment on above: Result Comment: WBC/ Nuc cell count includes mesothelial and other non-WBC nucleated cells as reflected in the differential. Performed By: #### 4 5230 ####[facility] [address] [place], [place] [address] Jack Mendoza M.D. [id number] Synovial Fluid AnalysisOrder ed By: Sunitha Whitney on 07-05-2024 Appearance (Syn fld) Cloudy Abnormal Clear [facility] Color (Syn fld) Light Red Abnormal [facility] Fibrin Clot, [facility] Absent [facility]ent [facility] Interpretation and review of laboratory results Abnormal [facility] Lymphocytes/100 WBC Auto (Syn fld) 0 % 0 - 0 % [facility] Monocytes/100 WBC (Syn fld) 0 % 0 - 0 % [facility] Neutrophils/100 WBC (Syn fld) 100 % High 0 - 25 % [facility] Nucleated cells Manual cnt (Syn fld) [#/Vol] 30749 High [facility] Comment on above: WBC/Nuc cell count i ncludes mesothelial and other non-WBC nucleated cells as reflected in the differential. Pyrophosphate crystals LM Ql (Syn fld) Negative Negative [facility] RBC Auto (Syn fld) [#/Vol] 35636 High [facility] Urate crystals LM Ql (Syn fld) Negative Negative [facility] Blastomyces Antibodyon 07-04 B. dermatitidis Ab CF Qn (S) Negative Negative [facility] Comment on above: A single negative re sult does not exclude the diagnosis of blastomycosis. Repeat testing on a new sample in 7-14 days if clinically indicated. Test Performed by: [facility] [address] [place] [address] Director Music: Ty Ordoñez Ph.D.; CLIA# [id number] [facility] Fungitell, Serumon Fungitell Negative Negative [facility] Comment on above: No (1, 3) Beta-D-Glu can detected. This assay does not detect certain fungi, including Cryptococcus species, which produce very low levels of (1, 3) Uqtg-B-Gzchzi (BDG) and the Mucorales (e.g., Lichthemia, Mucor and Rhizopus), which are not known to produce BDG. Additionally, the yeast phase of Blastomyces dermatitidis produces little BDG and may not be detected by this assay. ADDITIONAL INFORMATION This assay was performed using the FDA-cleared Fungitell Assay ([place], [place], [place]), a kinetic YOJANA based on modification of the Limulus Amebocyte Lysate pathway. Test Performed by: [facility] [address] [place] [address] Director Music: Ty Ordoñez Ph.D.; CLIA# [id number] Fungitell Assay 39 pg/mL <60 pg/mL [facility] US Abdomen limitedon 024 Cirrhosis with splenomegaly. No ascites. No cholelithiasis or biliary ductal dilatation. No right hydronephrosis or nephrolithiasis. [employer] Workstation ID: [id number] [employer] EXAMINATION: US ABDOMEN LIMITED STUDY HISTORY: ORDERING [...] unspecified hypotension type F14.10 Nondependent cocaine abuse ([facility]) D72.829 Leukocytosis, unspecified type F19.10 Polysubstance abuse (HCC) J41.1 Mucopurulent chronic bronchitis (HCC) E11.9 Type 2 diabetes mellitus without complication, without long-term current use of insulin (HCC) E66.01 Morbid obesity with BMI of 40.0-44.9, adult (HCC) Z68.41 Morbid obesity with BMI of 40.0-44.9, adult (HCC) I48.91 Atrial fibrillation with rapid ventricular response ([facility]) F11.20 Uncomplicated opioid dependence (HCC) J96.11 Chronic [...] measures 22.4 x 7.6 x 8.3 cm. [employer] [facility] Khadar Beth, DO - 07/04/2024 EXAMINATION: [...] heart failure with preserved ejection fraction (HFpEF) ([facility]) I50.32 Chronic diastolic congestive heart failure ([facility]) D61.818 Pancytopenia ([facility]) L03.115 Cellulitis of right lower extremity L08.9 Foot infection E27.40 Adrenal insufficiency ([facility]) T84.53XD Infection associated with internal right knee prosthesis, subsequent encounter L97.922 Skin ulcer of left lower leg with fat layer exposed ([facility]) L97.519 Plantar ulcer of right foot, unspecified ulcer stage ([facility]) G89.4 Chronic pain syndrome I87.2 Venous stasis dermatitis of both lower extremities D69.6 Thrombocytopenia ([facility]) T14.8XXA Hematoma K70.31 Alcoholic cirrhosis of liver with ascites ([facility]) R90.[address] M89.8X5 Pain of left femur M25.552 Acute pain of left hip I95.9 Hypotension, unspecified hypotension type F14.10 Nondependent cocaine abuse ([facility]) D72.829 Leukocytosis, unspecified type F19.10 Polysubstance abuse ([facility]) J41.1 Mucopurulent chronic bronchitis ([facility]) E11.9 Type 2 diabetes mellitus without complication, without long-term current use of insulin ([facility]) E66.01 Morbid obesity with BMI of 40.0-44.9, adult ([facility]) Z68.41 Morbid obesity with BMI of 40.0-44.9, adult ([facility]) I48.91 Atrial fibrillation with rapid ventricular response ([facility]) F11.20 Uncomplicated opioid dependence ([facility]) J96.11 Chronic respiratory failure with hypoxia and hypercapnia ([facility]) J96.12 Chronic respiratory failure with hypoxia and hypercapnia ([facility]) I10 Essential hypertension 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 No right hydronephrosis or nephrolithiasis. /[facility] Workstation ID: [id number] [facility] Radiology Study observation (narrative) [facility] US Abdomen limitedOrdered By : Khadar Beth on 07-04-2024 [facility] Work Phone: CBC panel Auto (Bld)on 07-03 Erythrocyte distribution width (RBC) [Entitic vol] 15.3 % High 11.6 - 14.8 % [facility] Hematocrit (Bld) [Volume fraction] 35 % Low 41.0 - 53.0 % [facility] Hemoglobin (Bld) [Mass/Vol] 10.7 g/dL Low 13.5 - 17.5 g/dL [facility] Interpretation and review of laboratory results Abnormal [facility] MCH (RBC) [Entitic mass] 22 pg Low 26.0 - 34.0 pg [facility] MCHC (RBC) [Mass/Vol] 30.6 g/dL Low 31.0 - 37.0 g/dL [facility] MCV (RBC) [Entitic vol] 72 fL Low 80.0 - 100.0 fL [facility] Nucleated RBC (Bld) [#/Vol] 0 10*3/uL [facility] Nucleated RBC/100 WBC (Bld) [Ratio] 0 % [facility] Platelet mean volume (Bld) [Entitic vol] 10 fL 9.4 - 12.4 fL [facility] Platelets (Bld) [#/Vol] 135 10*3/uL Low [facility] RBC (Bld) [#/Vol] 4.86 10*6/uL [facility] WBC (Bld) [#/Vol] 4.66 10*3/uL [facility] Comprehensive metabolic 2000 panelOrdered By: Krystian Nicole on 07-03-2024 Albumin [Mass/Vol] 3.6 g/dL 3.2 - 5.2 g/dL [facility] ALP [Catalytic activity/Vol] 75 U/L 40 - 150 U/L [facility] ALT [Catalytic activity/Vol] 9 U/L [facility] Anion gap [Moles/Vol] 15 mmol/L 10 - 20 mmol/L [facility] AST [Catalytic activity/Vol] 22 U/L [facility] Bilirubin [Mass/Vol] 0.5 mg/dL 0.0 - 1 .3 mg/dL [facility] Calcium [Mass/Vol] 8.4 mg/dL 8.4 - 10. 2 mg/dL [facility] Chloride [Moles/Vol] 96 mmol/L Low 98 - 10 8 mmol/L [facility] Creatinine [Mass/Vol] 0.68 mg/dL 0.50 - 1.30 mg/dL [facility] GFR/1.73 sq M.predicted CKD-EPI (S/P/Bld) [Vol rate/Area] 108 - PINF [facility] Comment on above: Estimated GFR was ca lculated using the 2020 CKD-EPI creatinine equation. Glucose [Mass/Vol] 103 mg/dL High 65 - 99 mg/dL [facility] HCO3 [Moles/Vol] 30 mmol/L 21 - 32 mmol/L [facility] Interpretation and review of laboratory results Abnormal [facility] Potassium [Moles/Vol] 3.6 mmol/L 3.5 - 5.1 mmol/L [facility] Protein [Mass/Vol] 7.9 g/dL 6.0 - 8.0 g/dL [facility] Sodium [Moles/Vol] 137 mmol/L 135 - 145 mmol/L [facility] Urea nitrogen [Mass/Vol] 16 mg/dL 8 - 25 mg/dL [facility] Urea nitrogen/Creatinine [Mass ratio] 23.5 mg/mg High 10.0 - 20.0 [facility] Laborator y Services has implemented the eGFR calculation approach that does not have a coefficient for race that conforms to the NKF-ASN Task Force Recommendations. [facility] ECG 12 Lead (Now)on 07-03-20 24 Atrial Rate 75 BPM [facility] P [place] 78 degrees [facility] P-R Interval 158 ms [facility] Q-T Interval 394 ms [facility] QRS Duration 90 ms [facility] QTC Calculation (Bezet) 439 ms [facility] R [place] 60 degrees [facility] T [place] 57 degrees [facility] Ventricular Rate [address] [facility] th Normal sinus rhythm Normal ECG ECG Cart Interpretation see physician note for interpretation. Confirmed by Yanet Paige ([id number]) on 07/03/2024 7:03:07 PM MUSE [facility] Glucose (Bld) [Mass/Vol]on 09-02-2023 Glucose [Mass/Vol] 154 mg/dL High 65 - 99 mg/dL [facility] Interpretation and review of laboratory results Abnormal [facility] CBC Auto Differentialon 06-22 Basophils (Bld) [#/Vol] 0.01 10*3/uL [facility] Basophils/100 WBC (Bld) 0.2 % [facility] Eosinophils (Bld) [#/Vol] 0.02 10*3/uL [facility] Eosinophils/100 WBC (Bld) 0.5 % [facility] Erythrocyte distribution width (RBC) [Entitic vol] 15.4 % High 11.6 - 14.8 % [facility] Hematocrit (Bld) [Volume fraction] 36.1 % Low 41.0 - 53.0 % [facility] Hemoglobin (Bld) [Mass/Vol] 11.1 g/dL Low 13.5 - 17.5 g/dL [facility] Immature granulocytes (Bld) [#/Vol] 0.01 10*3/uL [facility] Immature granulocytes/100 WBC (Bld) 0.2 % [facility] Comment on above: The IG parameter is the percentage of metamyelocytes, myelocytes and promyelocytes. An immature granulocyte count (IG) of 1% or more suggests the possibility of infection, an IG count of 3% is very likely related to an infection. Interpretation and review of laboratory results Abnormal [facility] Lymphocytes (Bld) [#/Vol] 0.54 10*3/uL Low [facility] Lymphocytes/100 WBC (Bld) 12.2 % [facility] MCH (RBC) [Entitic mass] 22.4 pg Low 26.0 - 34.0 pg [facility] MCHC (RBC) [Mass/Vol] 30.7 g/dL Low 31.0 - 37.0 g/dL [facility] MCV (RBC) [Entitic vol] 72.9 fL Low 80.0 - 100.0 fL [facility] Monocytes (Bld) [#/Vol] 0.26 10*3/uL Low [facility] Monocytes/100 WBC (Bld) 5.9 % [facility] Neutrophils (Bld) [#/Vol] 3.59 10*3/uL [facility] Neutrophils/100 WBC (Bld) 81 % [facility] Nucleated RBC (Bld) [#/Vol] 0 10*3/uL [facility] Nucleated RBC/100 WBC (Bld) [Ratio] 0 % [facility] Platelet mean volume (Bld) [Entitic vol] 10 fL 9.4 - 12.4 fL [facility] Platelets (Bld) [#/Vol] 131 10*3/uL Low [facility] RBC (Bld) [#/Vol] 4.95 10*6/uL [facility] ealth WBC (Bld) [#/Vol] 4.43 10*3/uL Low [facility] CRP, Inflammationon 07-02-20 CRP [Mass/Vol] 36.2 mg/L High 0.0 - 10.0 mg/L [facility] CT Pulmonary arteries for pu lmonary [...] are seen. Old rib fractures are noted. [employer] [facility] Rangel Garcia MD - 07/02/2024 EXAMINATION: [...] infection is not excluded. Workstation ID: [id number] [facility] Radiology Study observation (narrative) [facility] CT Pulmonary arteries for pu lmonary embolusOrdered By: Rangel Garcia on 07-02-2024 [facility] Work Phone: Comprehensive metabolic 2000 panelOrdered By: Caty Sanchez on 07-02-2024 Albumin [Mass/Vol] 3.7 g/dL 3.2 - 5.2 g/dL [facility] ALP [Catalytic activity/Vol] 70 U/L 40 - 150 U/L [facility] ALT [Catalytic activity/Vol] 13 U/L [facility] Anion gap [Moles/Vol] 15 mmol/L 10 - 20 mmol/L [facility] AST [Catalytic activity/Vol] 25 U/L [facility] Bilirubin [Mass/Vol] 0.8 mg/dL 0.0 - 1 .3 mg/dL [facility] Calcium [Mass/Vol] 8.8 mg/dL 8.4 - 10. 2 mg/dL [facility] Chloride [Moles/Vol] 99 mmol/L 98 - 10 8 mmol/L [facility] Creatinine [Mass/Vol] 0.61 mg/dL 0.50 - 1.30 mg/dL [facility] GFR/1.73 sq M.predicted CKD-EPI (S/P/Bld) [Vol rate/Area] 112 - PINF [facility] Comment on above: Estimated GFR was ca lculated using the 2020 CKD-EPI creatinine equation. Glucose [Mass/Vol] 132 mg/dL High 65 - 99 mg/dL [facility] HCO3 [Moles/Vol] 27 mmol/L 21 - 32 mmol/L [facility] Interpretation and review of laboratory results Abnormal [facility] Potassium [Moles/Vol] 3.8 mmol/L 3.5 - 5.1 mmol/L [facility] Protein [Mass/Vol] 8.1 g/dL High 6.0 - 8.0 g/dL [facility] Sodium [Moles/Vol] 137 mmol/L 135 - 145 mmol/L [facility] Urea nitrogen [Mass/Vol] 12 mg/dL 8 - 25 mg/dL [facility] Urea nitrogen/Creatinine [Mass ratio] 19.7 mg/mg 10.0 - 20.0 [facility] Services has implemented the eGFR calculation approach that does not have a coefficient for race that conforms to the NKF-ASN Task Force Recommendations. [facility] D-Dimer, QuantitativeOrdered By: Sara Barba on 07-02-2024 Fibrin D-dimer FEU (PPP) [Mass/Vol] 14.75 [facility] Interpretation and review of laboratory results Abnormal [facility] A D-dimer concentrat ion of <0.5 micrograms per milliliter FEU is considered a low probability for pulmonary embolus (PE) and deep venous thrombosis (DVT). Results of this test should always be interpreted in conjunction with the patient's medical history,clinical presentation, and other findings. Clinical diagnosis should not be based on the results of the D-dimer alone. [facility] EKGon 07-02-2024 [facility] ESR Westergren method (Bld) [Velocity]on 07-02-2024 ESR (Bld) [Velocity] 101 mm/h [facility] Interpretation and review of laboratory results Abnormal [facility] Gold Topon 07-02-2024 Extra Tube Hold for add-ons. [facility] Comment on above: Auto resulted. [facility] Combs Topon 07-02-2024 Extra Tube Hold for add-ons. [facility] Comment on above: Auto resulted. [facility] NT Pro BNPon 07-02-2024 Natriuretic peptide.B prohormone N-Terminal [Mass/Vol] 552 pg/mL High 0 - 300 pg/mL [facility] Natriuretic peptide.B prohor randi N-Terminal [Mass/Vol]on 07-02-2024 [facility] Cut-offs Rule In: < /= 50 Years >450 pg/mL 51 Years - 75 Years >900 pg/mL 76 Years - 99 Years >1800 pg/mL Rule Out: All patients <300 pg/mL [facility] No Panel Informationon 07-02 Interpretation and review of laboratory results Abnormal [facility] Troponin x 2 (Now and Repeat in 3 hours)Ordered By: Sb Neal on 07-02-2024 Troponin T ng/L NINF - 22 ng/L [facility] Troponin T Interpretation Normal [facility] Ultrasound Duplex Venous Leg s BILATERALon 07-02-2024 Patient Info Name: CARMEN GILMAN Age: 58 years : 1965 Gender: Male Exam Date: 07/02/2024 3:32 PM Patient Status: Emergency Thermospray Operator: Margy Bradley RVT Referring Physician: INDERJIT Jaimes; Indications R22.43 - Localized swelling, mass and lump, lower limb, bilateral Procedure Description 09710 Duplex examination using B-mode, color and spectral [...] Date: 07/02/2024 3:32 PM Patient Status: Emergency Thermospray Operator: Margy Bradley RVT Referring Physician: [id number], INDERJIT; Indications R22.43 - Localized swelling, mass and lump, lower limb, bilateral Procedure Description 04701 Duplex examination using B-mode, color and spectral [...] Small Saphenous: - Small Saphenous: - - [facility] Urinalysison 07-02-2024 Bacteria Auto Ql (U) None Seen None Se en /hpf [facility] Bilirubin Ql (U) Negative Negative [facility] th Clarity Refractometry automated (U) Clear Clear [facility] Color (U) Colorless Colorless, Yellow [facility] Glucose Auto test strip (U) [Mass/Vol] Negative Negative mg/dL [facility] Hemoglobin Auto test strip Ql (U) Small Abnormal Negative [facility] Interpretation and review of laboratory results Abnormal [facility] Ketones (U) [Mass/Vol] Negative Negative mg/dL [facility] Leukocyte esterase Auto test strip Ql (U) Negative Negative [facility] Mucus Auto (Urine sed) [#/Area] Rare None Seen, Rare /lpf [facility] Nitrite Auto test strip Ql (U) Negative Negative [facility] pH (U) 6.5 [pH] 5.0 - 7.0 [facility] Protein (U) [Mass/Vol] Negative Negative mg/dL [facility] RBC Auto (Urine sed) [#/Area] 2 [facility] Specific gravity (U) [Rel density] 1.006 1.005 - 1.025 [facility] Urobilinogen (U) [Mass/Vol] mg/dL NINF - 2.0 mg/dL [facility] Microscopic examinat ion is performed on all urinalysis samples and only positive findings are reported. The test for blood on the chemical analytic portion of urinalysis may also be positive due to hemoglobinuria and myoglobinuria and if red blood cells are present they are quantified by microscopic examination. [facility] XR Chest PA and Abdomen APon 07-02-2024 No active disease. Workstation ID: [id number] [employer] EXAMINATION: XR CHEST PA/AP 07/02/2024 3:21 pm [...] IMPRESSION: No active disease. Workstation ID: [id number] [facility] Radiology Study observation (narrative) [facility] XR Chest PA and Abdomen APOr dered By: Libia Sidhu on 07-02-2024 [facility] Work Phone: XR Knee - right [...] gas bubbles are seen. Workstation ID: [id number] [employer] EXAMINATION: XR KNEE RIGHT 2 VIEWS (STANDARD) [...] 10/07/2023 and right tibia/fibula radiographs of 07/02/2024. [employer] [facility] Eloy Arevalo MD - 07/02/2024 EXAMINATION: [...] gas bubbles are seen. Workstation ID: [id number] [facility] Radiology Study observation (narrative) [facility] XR Knee - right 2 ViewsOrder ed By: Eloy Arevalo on 07-02-2024 [facility] Work Phone: XR Tibia and Fibula - left 2 Viewson 07-02-2024 Extensive subcutaneous edema and soft tissue swelling without radiographic evidence of osteomyelitis. If there is high clinical concern, recommend MRI which is more sensitive. Workstation ID: [id number] [employer] EXAMINATION: XR TIBIA FIBULA LEFT 2 VIEWS [...] Extensive subcutaneous edema and soft tissue swelling. [employer] Edwin Juan, - 07/02/2024 EXAMINATION: XR TIBIA FIBULA LEFT [...] which is more sensitive. Workstation ID: [id number] [facility] Radiology Study observation (narrative) [facility] XR Tibia and Fibula - right 2 Viewson 07-02-2024 Diffuse soft tissue swelling and edema without radiographic evidence of osteomyelitis. If there is high clinical concern, recommend MRI. Right total knee arthroplasty with findings suspicious for component loosening. Consider obtaining dedicated right knee radiographs as clinically warranted. Workstation ID: [id number] [employer] EXAMINATION: XR TIBIA FIBULA RIGHT 2 VIEWS [...] radiographs as clinically warranted. Workstation ID: [id number] [facility] Radiology Study observation (narrative) [facility] XR Tibia and Fibula - right 2 ViewsOrdered By: Edwin Juan on 07-02-2024 [facility] Work Phone: No Panel Informationon 05-11 XRAY CHEST 1 VIEW Invalid Interpretation Code [employer] Work Phone: Comment on above: XRAY CHEST 1 VIEWFIN DINGS: The heart and mediastinum are normal. The trachea is midline. No acute cardiopulmonary disease is noted. The osseous structures are normal for age.CONCLUSION: Normal chest exam.ELECTRONICALLY SIGNED BY FELIPE RANDHAWA D.O. 05/11/2024 3:38:17 PM EDT. No Panel Informationon 05-02 KNEE 1 OR 2 VIEWS Invalid Interpretation Code [employer] Work Phone: Comment on above: KNEE 1 [...] 04-27-2024 Anion gap [Moles/Vol] 3 mmol/L Normal [facility] Comment on above: Performed By: #### F X, BMPF #### Testing performed at [place] [id number] Calcium [Mass/Vol] 8.0 mg/dL Low 8.4-10.2 [facility] Comment on above: Performed By: #### F X, BMPF #### [place] [address] Chloride [Moles/Vol] 102 mmol/L Normal 98-107 [facility] Comment on above: Result Comment: Krystian boyd note: Triglyceride levels of 600mg/dL or higher may positively bias chloride results by approximately 2.1 mmol Performed By: #### F X, BMPF #### [place] [address] CO2 [Moles/Vol] 32 mmol/L High 22-30 [facility] Comment on above: Performed By: #### F X, BMPF #### Testing performed at [place] [id number] Creatinine [Mass/Vol] 0.70 mg/dL Normal 0.70-1.20 [facility] Comment on above: Performed By: #### F X, BMPF #### Testing performed at [address] [address] EST. GFR, 150 ml/min/1.73sq.m [facility] Comment on above: Performed By: #### F X, BMPF #### Testing performed at [address] [address] EST. GFR,Non 124 ml/min/1.73sq.m [facility] Comment on above: Performed By: #### F X, BMPF #### Testing performed at [address] [address] GFR Information Average GFR for 50-5 9 years old = 93. Normal [facility] Comment on above: Result Comment: Phlebotomist Prn kaveh Kidney disease, GFR = <60. Kidney failure, GFR = <15. The GFR estimate is not adjusted for extreme body surface area or acute process, nor has it been validated for women or ethnic groups other than and . Performed By: #### F X, BMPF #### Testing performed at [place] [id number] Glucose [Mass/Vol] 120 mg/dL High 70-100 [facility] Comment on above: Result Comment: NORMAL <100 mg/dL PREDIABETES 101-126 mg/dL DIABETES 126 mg/dL or higher Performed By: #### F X, BMPF #### Testing performed at [place] [id number] Potassium [Moles/Vol] 3.7 mmol/L Normal 3.5-5.1 [facility] Comment on above: Performed By: #### F X, BMPF #### Testing performed at [place] [id number] Sodium [Moles/Vol] 137 mmol/L Normal 137-145 [facility] Comment on above: Performed By: #### F X, BMPF #### Testing performed at [place] [id number] Urea nitrogen [Mass/Vol] 24 mg/dL High 7-20 [facility] Comment on above: Performed By: #### F X, BMPF #### Testing performed at [address] [address] FAX REQUESTon 04-27-2024 FAX TO [phone] Normal [facility] Comment on above: Performed By: #### F X, BMPF #### Testing performed at [place] [id number] CBCon 04-09-2024 Basophils/100 WBC (Bld) 1 % Normal 0.0-2.0 [facility] Comment on above: Performed By: #### U LIV, FX, ACBC, LIP2, FE2, CMPF, UMAC ####Testing performed at [address] [address] DTYPE AUTO DIFF Normal [facility] Comment on above: Performed By: #### U LIV, FX, ACBC, LIP2, FE2, CMPF, UMAC ####Testing performed at [address] [address] Eosinophils/100 WBC (Bld) 2 % Normal 0.0-11.0 [facility] Comment on above: Performed By: #### U LIV, FX, ACBC, LIP2, FE2, CMPF, UMAC ####Testing performed at [address] [address] Lymphocytes/100 WBC (Bld) 20 % Normal 20.0-55.0 [facility] Comment on above: Performed By: #### U LIV, FX, ACBC, LIP2, FE2, CMPF, UMAC ####Testing [place] [address] Monocytes/100 WBC (Bld) 11 % High 0.0-10.0 [facility] Comment on above: Performed By: #### U LIV, FX, ACBC, LIP2, FE2, CMPF, UMAC ####Testing performed at [address] [address] Neutrophils/100 WBC (Bld) 66 % Normal 37.0-75.0 [facility] Comment on above: Performed By: #### U LIV, FX, ACBC, LIP2, FE2, CMPF, UMAC ####Testing performed at [address] [address] PLATELET COMMENT CLUMPED Normal [facility] Comment on above: Result Comment: DECR EASED Performed By: #### U LIV, FX, ACBC, LIP2, FE2, CMPF, UMAC ####Testing performed at [address] [address] RBC morphology finding Nom (Bld) 2+ Normal [facility] Comment on above: Result Comment: ANIS OCYTE 2+ ELIPTOCYTES 2+ POIKILOCYTE 1+ MICROCYTOSIS Performed By: #### U LIV, FX, ACBC, LIP2, FE2, CMPF, UMAC ####Testing performed at [address] [address] Erythrocyte distribution width (RBC) [Ratio] 17.4 % High 11.5-14.5 [facility] Comment on above: Performed By: #### U LIV, FX, ACBC, LIP2, FE2, CMPF, UMAC ####Testing performed at [place] [id number] Hematocrit (Bld) [Volume fraction] 31.5 % Low 42.0-52.0 [facility] Comment on above: Performed By: #### U LIV, FX, ACBC, LIP2, FE2, CMPF, UMAC ####Testing performed at [place] [id number] Hemoglobin (Bld) [Mass/Vol] 9.9 g/dL Low 14.0-18.0 [facility] Comment on above: Performed By: #### U LIV, FX, ACBC, LIP2, FE2, CMPF, UMAC ####Testing performed at [place] [id number] MCH (RBC) [Entitic mass] 22.5 pg Low 26.0-35.0 [facility] Comment on above: Performed By: #### U LIV, FX, ACBC, LIP2, FE2, CMPF, UMAC ####Testing performed at [place] [id number] MCHC (RBC) [Mass/Vol] 31.4 g/dL Normal 27.0-37.0 [facility] Comment on above: Performed By: #### U LIV, FX, ACBC, LIP2, FE2, CMPF, UMAC ####Testing performed at [address] [address] MCV (RBC) [Entitic vol] 71.6 fL Low 80.0-100.0 [facility] Comment on above: Performed By: #### U LIV, FX, ACBC, LIP2, FE2, CMPF, UMAC ####Testing performed at [place] [id number] Platelet mean volume (Bld) [Entitic vol] 8.8 fL Normal 7.4-11.0 [facility] Comment on above: Performed By: #### U LIV, FX, ACBC, LIP2, FE2, CMPF, UMAC ####Testing performed at [address] [address] Platelets (Bld) [#/Vol] 77 10*3/uL Low 130-400 [facility] Comment on above: Performed By: #### U LIV, FX, ACBC, LIP2, FE2, CMPF, UMAC ####Testing performed at [address] [address] RBC (Bld) [#/Vol] 4.40 10*6/uL Normal 4.0-6.1 [facility] Comment on above: Performed By: #### U LIV, FX, ACBC, LIP2, FE2, CMPF, UMAC ####Testing performed at [address] [address] WBC (Bld) [#/Vol] 3.7 10*3/uL Normal 3.6-11.0 [facility] Comment on above: Performed By: #### U LIV, FX, ACBC, LIP2, FE2, CMPF, UMAC ####Testing performed at [address] [address] CMP FASTINGon 04-09-2024 A:G RATIO 0.9 RATIO Normal [facility] Comment on above: Performed By: #### U LIV, FX, ACBC, LIP2, FE2, CMPF, UMAC #### Testing performed at [address] [address] ALBUMIN 3.3 G/dl Low 3.5-5.0 [facility] Comment on above: Performed By: #### U LIV, FX, ACBC, LIP2, FE2, CMPF, UMAC #### Testing performed at [address] [address] ALP [Catalytic activity/Vol] 101 U/L Normal 38-126 [facility] Comment on above: Performed By: #### U LIV, FX, ACBC, LIP2, FE2, CMPF, UMAC #### Testing performed at [address] [address] ALT [Catalytic activity/Vol] 16 U/L Normal <50 [facility] Comment on above: Performed By: #### U LIV, FX, ACBC, LIP2, FE2, CMPF, UMAC #### Testing performed at [address] [address] AST [Catalytic activity/Vol] 27 U/L Normal 17-59 [facility] Comment on above: Performed By: #### U LIV, FX, ACBC, LIP2, FE2, CMPF, UMAC #### Testing performed at [address] [address] Bilirubin [Mass/Vol] 0.9 mg/dL Normal 0.2-1.3 [facility] Comment on above: Performed By: #### U LIV, FX, ACBC, LIP2, FE2, CMPF, UMAC #### Testing performed at [address] [address] Calcium [Mass/Vol] 8.1 mg/dL Low 8.4-10.2 [facility] Comment on above: Performed By: #### U LIV, FX, ACBC, LIP2, FE2, CMPF, UMAC #### Testing performed at [address] [address] Chloride [Moles/Vol] 103 mmol/L Normal 98-107 [facility] Comment on above: Result Comment: Plea note: Triglyceride levels of 600mg/dL or higher may positively bias chloride results by approximately 2.1 mmol Performed By: #### U LIV, FX, ACBC, LIP2, FE2, CMPF, UMAC #### Testing performed at [address] [address] CO2 [Moles/Vol] 30 mmol/L Normal 22-30 [facility] Comment on above: Performed By: #### U LIV, FX, ACBC, LIP2, FE2, CMPF, UMAC #### Testing performed at [address] [address] Creatinine [Mass/Vol] 1.00 mg/dL Normal 0.70-1.20 [facility] Comment on above: Performed By: #### U LIV, FX, ACBC, LIP2, FE2, CMPF, UMAC #### Testing performed at [address] [address] EST. GFR, 99 ml/min/1.73sq.m [facility] Comment on above: Performed By: #### U LIV, FX, ACBC, LIP2, FE2, CMPF, UMAC #### Testing performed at [address] [address] EST. GFR,Non 82 ml/min/1.73sq.m [facility] Comment on above: Performed By: #### U LIV, FX, ACBC, LIP2, FE2, CMPF, UMAC #### Testing performed at [place] [id number] GFR Information Average GFR for 50-5 9 years old = 93. [facility] Comment on above: Result Comment: Phlebotomist Prn kaveh Kidney disease, GFR = <60. Kidney failure, GFR = <15. The GFR estimate is not adjusted for extreme body surface area or acute process, nor has it been validated for women or ethnic groups other than and . Performed By: #### U LIV, FX, ACBC, LIP2, FE2, CMPF, UMAC #### Testing performed at [address] [address] Glucose [Mass/Vol] 126 mg/dL High 70-100 [facility] Comment on above: Result Comment: NORMAL <100 mg/dL PREDIABETES 101-126 mg/dL DIABETES 126 mg/dL or higher Performed By: #### U LIV, FX, ACBC, LIP2, FE2, CMPF, UMAC #### Testing performed at [address] [address] Potassium [Moles/Vol] 4.2 mmol/L Normal 3.5-5.1 [facility] Comment on above: Performed By: #### U LIV, FX, ACBC, LIP2, FE2, CMPF, UMAC #### Testing performed at [address] [address] Protein [Mass/Vol] 7.0 g/dL Normal 6.3-8.2 [facility] Comment on above: Performed By: #### U LIV, FX, ACBC, LIP2, FE2, CMPF, UMAC #### Testing performed at [address] [address] Sodium [Moles/Vol] 136 mmol/L Low 137-145 [facility] Comment on above: Performed By: #### U LIV, FX, ACBC, LIP2, FE2, CMPF, UMAC #### Testing performed at [address] [address] Urea nitrogen [Mass/Vol] 19 mg/dL Normal 7-20 [facility] Comment on above: Performed By: #### U LIV, FX, ACBC, LIP2, FE2, CMPF, UMAC #### Testing performed at [address] [address] FAX REQUESTon 04-09-2024 FAX TO [phone] Normal [facility] Comment on above: Performed By: #### U LIV, FX, ACBC, LIP2, FE2, CMPF, UMAC #### Testing performed at [address] [address] FERRITINon 04-09-2024 Ferritin [Mass/Vol] 67 ng/mL Normal 17.9-464 [facility] Comment on above: Performed By: #### F RTN ####Testing performed at [address] [place] [address] IRONon 04-09-2024 Iron [Mass/Vol] 66 ug/dL Normal 49-181 [facility] Comment on above: Performed By: #### U LIV, FX, ACBC, LIP2, FE2, CMPF, UMAC #### Testing performed at [address] [address] LIPID PROFILEon 04-09-2024 Cholesterol [Mass/Vol] 96 mg/dL Normal [facility] Comment on above: Performed By: #### U LIV, FX, ACBC, LIP2, FE2, CMPF, UMAC #### Testing performed at [address] [address] Cholesterol in HDL [Mass/Vol] 32 mg/dL Normal 26-63 [facility] Comment on above: Performed By: #### U LIV, FX, ACBC, LIP2, FE2, CMPF, UMAC #### Testing performed at [address] [address] Cholesterol in LDL [Mass/Vol] 52 mg/dL Normal <100 [facility] Comment on above: Performed By: #### U LIV, FX, ACBC, LIP2, FE2, CMPF, UMAC #### Testing performed at [address] [address] Cholesterol in VLDL [Mass/Vol] 12 mg/dL Normal 5-25 [facility] Comment on above: Performed By: #### U LIV, FX, ACBC, LIP2, FE2, CMPF, UMAC #### Testing performed at [address] [address] Cholesterol.total/Ch olesterol in HDL [Mass ratio] 3.00 {ratio} Normal [facility] Comment on above: Result Comment: RISK TOTAL/HDL RATIO MEN WOMEN 1/2 AVERAGE 3.43 3.27 AVERAGE 4.97 4.44 2X AVERAGE 9.55 7.05 3X AVERAGE 23.99 11.04 Performed By: #### U LIV, FX, ACBC, LIP2, FE2, CMPF, UMAC #### Testing performed at [address] [address] Triglyceride [Mass/Vol] 60 mg/dL Normal 0-150 [facility] Comment on above: Performed By: #### U LIV, FX, ACBC, LIP2, FE2, CMPF, UMAC #### Testing performed at [address] [address] TSHon 04-09-2024 TSH 1.550 uIU/ML Normal 0.465-4.680 [facility] Comment on above: Performed By: #### T SH2 #### Testing performed at [address] [address] URINE CULTUREon 04-09-2024 Bacteria identified Cx Nom (U) SPECIMEN DESCRIPTION URINE CLEAN CATCH UA DIPSTICK LEUKOCYTE NEGATIVE * Result Note: NITRITE NEGATIVE * CULTURE NO GROWTH 2 DAYS * Result Note: Testing performed at [place] [address] * REPORT STATUS 04/11/2024 * Result Note: FINAL * Normal [facility] Comment on above: Performed By: #### A URNC ####Testing performed at [address] [place] [address]Jdtsxyg performed at [address] [address] URINE MACROSCOPICon 04-09-20 24 Bilirubin Ql (U) Negative Normal NEGATIVE [facility] Comment on above: Performed By: #### U LIV, FX, ACBC, LIP2, FE2, CMPF, UMAC #### Testing performed at [address] [address] Clarity (U) CLEAR Normal CLEAR [facility] Comment on above: Performed By: #### U LIV, FX, ACBC, LIP2, FE2, CMPF, UMAC #### Testing performed at [address] [address] Color (U) YELLOW Normal YELLOW [facility] Comment on above: Performed By: #### U LIV, FX, ACBC, LIP2, FE2, CMPF, UMAC #### Testing performed at [address] [address] Glucose Ql (U) Negative Normal NEGATIVE [facility] Comment on above: Performed By: #### U LIV, FX, ACBC, LIP2, FE2, CMPF, UMAC #### Testing performed at [address] [address] pH (U) 7.0 [pH] Normal 5.0-7.0 [facility] Comment on above: Performed By: #### U LIV, FX, ACBC, LIP2, FE2, CMPF, UMAC #### Testing performed at [address] [address] URINE HEMOGLOBIN SMALL Abnormal NEGATIVE [facility] Comment on above: Performed By: #### U LIV, FX, ACBC, LIP2, FE2, CMPF, UMAC #### Testing performed at [address] [address] URINE KETONE Negative Normal NEGATIVE [facility] Comment on above: Performed By: #### U LIV, FX, ACBC, LIP2, FE2, CMPF, UMAC #### Testing performed at [address] [address] URINE LEUKOTEST Negative Normal NEGATIVE [facility] Comment on above: Performed By: #### U LIV, FX, ACBC, LIP2, FE2, CMPF, UMAC #### Testing performed at [address] [address] URINE NITRATES Negative Normal NEGATIVE [facility] Comment on above: Performed By: #### U LIV, FX, ACBC, LIP2, FE2, CMPF, UMAC #### Testing performed at [address] [address] URINE SPEC GRAVITY 1.020 Normal 1.010-1.025 [facility] Comment on above: Performed By: #### U LIV, FX, ACBC, LIP2, FE2, CMPF, UMAC #### Testing performed at [address] [address] URINE TOTAL PROTEIN Negative Normal NEGATIVE [facility] Comment on above: Performed By: #### U LIV, FX, ACBC, LIP2, FE2, CMPF, UMAC #### Testing performed at [address] [address] Urobilinogen Qn (U) 4.0 {Eliseo'U}/dL High 0.2-1.0 [facility] Comment on above: Performed By: #### U LIV, FX, ACBC, LIP2, FE2, CMPF, UMAC #### Testing performed at [address] [address] URINE MICROSCOPICon 04-09-20 24 BACTERIA TRACE Abnormal NEGATIVE [facility] Comment on above: Performed By: #### U LIV, FX, ACBC, LIP2, FE2, CMPF, UMAC ####Testing performed at [address] [address] CASTS NONE Normal NONE [facility] Comment on above: Performed By: #### U LIV, FX, ACBC, LIP2, FE2, CMPF, UMAC ####Testing performed at [address] [address] CRYSTAL NONE Normal NONE [facility] Comment on above: Performed By: #### U LIV, FX, ACBC, LIP2, FE2, CMPF, UMAC ####Testing performed at [address] [address] Epithelial cells LM Ql (Urine sed) 1 TO 5 Normal [facility] Comment on above: Performed By: #### U LIV, FX, ACBC, LIP2, FE2, CMPF, UMAC ####Testing performed at [address] [address] Mucus Ql (Urine sed) Negative Normal NEGATIVE [facility] Comment on above: Performed By: #### U LIV, FX, ACBC, LIP2, FE2, CMPF, UMAC ####Testing performed at [address] [address] URINE COMMENT PHYSICIAN REQUESTED CULTURE Normal [facility] Comment on above: Performed By: #### U LIV, FX, ACBC, LIP2, FE2, CMPF, UMAC ####Testing performed at [address] [address] URINE RBC'S 1 TO 5 Normal NEGATIVE [facility] Comment on above: Performed By: #### U LIV, FX, ACBC, LIP2, FE2, CMPF, UMAC ####Testing performed at [address] [address] URINE WBC'S 1 TO 5 Normal NEGATIVE [facility] Comment on above: Performed By: #### U LIV, FX, ACBC, LIP2, FE2, CMPF, UMAC ####Testing performed at [address] [address] No Panel Informationon 03-15 VENOUS DOPPLER EXTREM/TERRY Invalid Interpretation Code [facility] Work Phone: Comment on above: VENOUS DOPPLER [...] B (Bld) [Mass/Vol] 143 pg/mL High 0-100 [facility] Comment on above: Performed By: #### A CBC, DDIMER, BNP, CMPF, PT ####Testing performed at [address] [address] CBCon 09-19-2023 Basophils/100 WBC (Bld) 0 % Normal 0.0-2.0 [facility] Comment on above: Performed By: #### T SH2 #### Testing performed at [address] [address] DTYPE AUTO DIFF Normal [facility] Comment on above: Performed By: #### T SH2 #### Testing performed at [address] [address] Eosinophils/100 WBC (Bld) 1 % Normal 0.0-11.0 [facility] Comment on above: Performed By: #### T SH2 #### Testing performed at [address] [address] Lymphocytes/100 WBC (Bld) 14 % Low 20.0-55.0 [facility] Comment on above: Performed By: #### T SH2 #### Testing performed at [address] [address] Monocytes/100 WBC (Bld) 7 % Normal 0.0-10.0 [facility] Comment on above: Performed By: #### T SH2 #### Testing performed at [address] [address] Neutrophils/100 WBC (Bld) 78 % High 37.0-75.0 [facility] Comment on above: Performed By: #### T SH2 #### Testing performed at [address] [address] PLATELET COMMENT DECREASED Normal [facility] Comment on above: Performed By: #### T SH2 #### Testing performed at [address] [address] RBC morphology finding Nom (Bld) 1+ Normal [facility] Comment on above: Result Comment: MICR OCYTOSIS 1+ ANISOCYTE Performed By: #### T SH2 #### Testing performed at [address] [address] Erythrocyte distribution width (RBC) [Ratio] 16.9 % High 11.5-14.5 [facility] Comment on above: Performed By: #### T SH2 #### Testing performed at [address] [address] Hematocrit (Bld) [Volume fraction] 34.3 % Low 42.0-52.0 [facility] Comment on above: Performed By: #### T SH2 #### Testing performed at [address] [address] Hemoglobin (Bld) [Mass/Vol] 10.9 g/dL Low 14.0-18.0 [facility] Comment on above: Performed By: #### T SH2 #### Testing performed at [address] [address] MCH (RBC) [Entitic mass] 22.0 pg Low 26.0-35.0 [facility] Comment on above: Performed By: #### T SH2 #### Testing performed at [address] [address] MCHC (RBC) [Mass/Vol] 31.9 g/dL Normal 27.0-37.0 [facility] Comment on above: Performed By: #### T SH2 #### Testing performed at [address] [address] MCV (RBC) [Entitic vol] 69.2 fL Low 80.0-100.0 [facility] Comment on above: Performed By: #### T SH2 #### Testing performed at [address] [address] Platelet mean volume (Bld) [Entitic vol] 8.9 fL Normal 7.4-11.0 [facility] Comment on above: Performed By: #### T SH2 #### Testing performed at [address] [place] [address] Platelets (Bld) [#/Vol] 103 10*3/uL Low 130-400 [facility] Comment on above: Performed By: #### T SH2 #### Testing performed at [address] [place] [address] RBC (Bld) [#/Vol] 4.96 10*6/uL Normal 4.0-6.1 [facility] Comment on above: Performed By: #### T SH2 #### Testing performed at [address] [address] WBC (Bld) [#/Vol] 3.3 10*3/uL Low 3.6-11.0 [facility] Comment on above: Performed By: #### T SH2 #### Testing performed at [address] [place] [address] CMP FASTINGon 09-19-2023 A:G RATIO 0.9 RATIO Normal [facility] Comment on above: Performed By: #### A CBC, DDIMER, BNP, CMPF, PT ####Testing performed at [address] [address] ALBUMIN 3.4 G/dl Low 3.5-5.0 [facility] Comment on above: Performed By: #### A CBC, DDIMER, BNP, CMPF, PT ####Testing performed at [address] [place] [address] ALP [Catalytic activity/Vol] 84 U/L Normal 38-126 [facility] Comment on above: Performed By: #### A CBC, DDIMER, BNP, CMPF, PT ####Testing performed at [address] [place] [address] ALT [Catalytic activity/Vol] 24 U/L Normal <50 [facility] Comment on above: Performed By: #### A CBC, DDIMER, BNP, CMPF, PT ####Testing performed at [address] [place] [address] AST [Catalytic activity/Vol] 32 U/L Normal 17-59 [facility] Comment on above: Performed By: #### A CBC, DDIMER, BNP, CMPF, PT ####Testing performed at [address] [address] Bilirubin [Mass/Vol] 0.9 mg/dL Normal 0.2-1.3 [facility] Comment on above: Performed By: #### A CBC, DDIMER, BNP, CMPF, PT ####Testing performed at [address] [address] Calcium [Mass/Vol] 9.0 mg/dL Normal 8.4-10.2 [facility] Comment on above: Performed By: #### A CBC, DDIMER, BNP, CMPF, PT ####Testing performed at [address] [address] Chloride [Moles/Vol] 100 mmol/L Normal 98-107 [facility] Comment on above: Result Comment: Krystian boyd note: Triglyceride levels of 600mg/dL or higher may positively bias chloride results by approximately 2.1 mmol Performed By: #### A CBC, DDIMER, BNP, CMPF, PT ####Testing performed at [address] [address] CO2 [Moles/Vol] 30 mmol/L Normal 22-30 [facility] Comment on above: Performed By: #### A CBC, DDIMER, BNP, CMPF, PT ####Testing performed at [address] [address] Creatinine [Mass/Vol] 0.60 mg/dL Low 0.70-1.20 [facility] Comment on above: Performed By: #### A CBC, DDIMER, BNP, CMPF, PT ####Testing performed at [address] [address] EST. GFR, 179 ml/min/1.73sq.m [facility] Comment on above: Performed By: #### A CBC, DDIMER, BNP, CMPF, PT ####Testing performed at [address] [address] EST. GFR,Non 148 ml/min/1.73sq.m [facility] Comment on above: Performed By: #### A CBC, DDIMER, BNP, CMPF, PT ####[place] [address] GFR Information Average GFR for 50-5 9 years old = 93. Normal [facility] Comment on above: Result Comment: Phlebotomist Prn kaveh Kidney disease, GFR = <60. Kidney failure, GFR = <15. The GFR estimate is not adjusted for extreme body surface area or acute process, nor has it been validated for women or ethnic groups other than and . Performed By: #### A CBC, DDIMER, BNP, CMPF, PT ####[place] [address] Glucose [Mass/Vol] 116 mg/dL High 70-100 [facility] Comment on above: Result Comment: NORMAL <100 mg/dL PREDIABETES 101-126 mg/dL DIABETES 126 mg/dL or higher Performed By: #### A CBC, DDIMER, BNP, CMPF, PT ####Testing performed at [place] [id number] Potassium [Moles/Vol] 4.3 mmol/L Normal 3.5-5.1 [facility] Comment on above: Performed By: #### A CBC, DDIMER, BNP, CMPF, PT ####Testing [place] [address] Protein [Mass/Vol] 7.1 g/dL Normal 6.3-8.2 [facility] Comment on above: Performed By: #### A CBC, DDIMER, BNP, CMPF, PT ####Testing performed at [place] [id number] Sodium [Moles/Vol] 134 mmol/L Low 137-145 [facility] Comment on above: Performed By: #### A CBC, DDIMER, BNP, CMPF, PT ####Testing performed at [place] [id number] Urea nitrogen [Mass/Vol] 19 mg/dL Normal 7-20 [facility] Comment on above: Performed By: #### A CBC, DDIMER, BNP, CMPF, PT ####Testing performed at [address] [address] [address] PE STUDYon 09-19-2023 CT PE STUDY [...] adjacent free fluid. Consider ultrasound evaluation. Normal [facility] D DIMERon 09-19-2023 D DIMER 12.91 ??g/ml Critically high <0.50 [facility] Comment on above: Result Comment: If r [...] DDIMER, BNP, CMPF, PT ####Testing performed at [address] [place] [address] LACTATE,BLOODon 09-19-2023 Lactate [Moles/Vol] 2.0 mmol/L Normal 0.7-2.0 [facility] Comment on above: Performed By: #### L ACTAC #### Testing performed at [address] [address] PROTIMEon 09-19-2023 INR Coag (PPP) [Relative time] 1.06 {INR} Normal 0.85-1.10 [facility] Comment on above: Result Comment: 2.0-3.0 THERAPEUTIC RANGE 2.5-3.5 MECHANICAL VALVE RANGE Performed By: #### A CBC, DDIMER, BNP, CMPF, PT ####Testing performed at [address] [address] PT Coag (PPP) [Time] 13.9 s Normal 11.8-14.4 [facility] Comment on above: Performed By: #### A CBC, DDIMER, BNP, CMPF, PT ####Testing performed at [place] [id number] TROPONIN I, HIGH SENSITIVITY on 09-19-2023 TROPONIN I, HIGH SENSITIVITY 16 pg/mL Normal 0-20 [facility] Comment on above: Result Comment: Indeterminant: >12 to 100 pg/mL female >20 to 100 pg/mL male Indicative of myocardial injury. Serial sampling is recommended, a change of greater than or equal to 20 pg/mL is indicative of acute coronary syndrome. Performed By: #### T ROHS ####Testing performed at [address] [address] XR CHEST PA 1 VIEWon 024 XR [...] 2. Resection of distal left clavicle. Normal [facility] No Panel Informationon 08-19 Cecilia Gonzales, YURIDIA [...] Response to treatment: procedure was tolerated well [facility] Glucose (Bld) [Mass/Vol]on 10-12-2022 Glucose [Mass/Vol] 119 mg/dL High 65 - 99 mg/dL [facility] Interpretation and review of laboratory results Abnormal [facility] Glucose [Mass/Vol] 181 mg/dL High 65 - 99 mg/dL [facility] Interpretation and review of laboratory results Abnormal [facility] Glucose [Mass/Vol] 105 mg/dL High 65 - 99 mg/dL [facility] Interpretation and review of laboratory results Abnormal [facility] CBC Auto Differentialon 07-23 Erythrocyte distribution width (RBC) [Entitic vol] 16.1 % High 11.6 - 14.8 % [facility] Hematocrit (Bld) [Volume fraction] 32.0 % Low 41.0 - 53.0 % [facility] Hemoglobin (Bld) [Mass/Vol] 10.1 g/dL Low 13.5 - 17.5 g/dL [facility] Interpretation and review of laboratory results Abnormal [facility] MCH (RBC) [Entitic mass] 22.2 pg Low 26.0 - 34.0 pg [facility] MCHC (RBC) [Mass/Vol] 31.6 g/dL 31.0 - 37.0 g/dL [facility] MCV (RBC) [Entitic vol] 70.3 fL Low 80.0 - 100.0 fL [facility] Nucleated RBC (Bld) [#/Vol] 0.00 10*3/uL [facility] Nucleated RBC/100 WBC (Bld) [Ratio] 0.0 % [facility] Platelets (Bld) [#/Vol] 101 10*3/uL Low [facility] RBC (Bld) [#/Vol] 4.55 10*6/uL [facility] ealth WBC (Bld) [#/Vol] 2.46 10*3/uL Low [facility] eah [facility] CBC and Diff Morphologyon Ovalocytes LM Ql (Bld) Many [facility] Platelets Large Auto Ql (Bld) Few [facility] Polychromasia LM Ql (Bld) Few [facility] RBC morphology finding Nom (Bld) See Comment [facility] Target cells LM Ql (Bld) Few [facility] Comprehensive metabolic 2000 panelOrdered By: Gaby Brambila on 08-10-2023 Albumin [Mass/Vol] 2.7 g/dL Low 3.2 - 5.2 g/dL [facility] ALP [Catalytic activity/Vol] 60 U/L 40 - 150 U/L [facility] ALT [Catalytic activity/Vol] 17 U/L 14 - 65 U/L [facility] Anion gap [Moles/Vol] 8 mmol/L Low 10 - 20 mmol/L [facility] AST [Catalytic activity/Vol] 15 U/L [facility] Bilirubin [Mass/Vol] 0.8 mg/dL 0.0 - 1 .3 mg/dL [facility] Calcium [Mass/Vol] 8.2 mg/dL Low 8.4 - 10. 2 mg/dL [facility] Chloride [Moles/Vol] 107 mmol/L 98 - 10 8 mmol/L [facility] Creatinine [Mass/Vol] 0.61 mg/dL 0.50 - 1.30 mg/dL [facility] GFR/1.73 sq M.predicted CKD-EPI (S/P/Bld) [Vol rate/Area] 112 - PINF [facility] Glucose [Mass/Vol] 96 mg/dL 65 - 99 mg/dL [facility] HCO3 [Moles/Vol] 30 mmol/L 21 - 32 mmol/L [facility] Interpretation and review of laboratory results Abnormal [facility] Potassium [Moles/Vol] 4.1 mmol/L 3.5 - 5.1 mmol/L [facility] Protein [Mass/Vol] 6.6 g/dL 6.0 - 8.0 g/dL [facility] Sodium [Moles/Vol] 141 mmol/L 135 - 145 mmol/L [facility] Urea nitrogen [Mass/Vol] 20 mg/dL 8 - 25 mg/dL [facility] Urea nitrogen/Creatinine [Mass ratio] 32.8 mg/mg High 10.0 - 20.[address] [facility] Glucose (Bld) [Mass/Vol]on 10-11-2022 Glucose [Mass/Vol] 110 mg/dL High 65 - 99 mg/dL [facility] Interpretation and review of laboratory results Abnormal [facility] Magnesium Levelon 08-10-2023 Magnesium [Mass/Vol] 2.2 mg/dL 1.6 - 2 .4 mg/dL [facility] Magnesium [Mass/Vol]on 08-10 Interpretation and review of laboratory results Normal [facility] Manual Differential panel (B ld)on 08-10-2023 Basophils (Bld) [#/Vol] 0.00 10*3/uL [facility] Basophils/100 WBC (Bld) 0.0 % [facility] Eosinophils (Bld) [#/Vol] 0.06 10*3/uL [facility] Eosinophils/100 WBC (Bld) 2.6 % [facility] Interpretation and review of laboratory results Abnormal [facility] Lymphocytes (Bld) [#/Vol] 0.43 10*3/uL Low [facility] Lymphocytes/100 WBC (Bld) 17.4 % [facility] Monocytes (Bld) [#/Vol] 0.17 10*3/uL Low [facility] Monocytes/100 WBC (Bld) 7.0 % [facility] Neutrophils (Bld) [#/Vol] 1.80 10*3/uL [facility] Neutrophils/100 WBC (Bld) 73.0 % [facility] Occult Blood Stool Immunoass ay (Alcira, Fariba, Mary Only)Ordered By: Traci Leslie on 08-10-2023 Hemoglobin.gastroint estinal Ql (Stl) Negative Negative for Occult Blood [facility] Interpretation and review of laboratory results Normal [facility] Phosphate [Mass/Vol]on 08-10 Interpretation and review of laboratory results Normal [facility] Phosphoruson 08-10-2023 Phosphate [Mass/Vol] 4.0 mg/dL 2.7 - 4 .5 mg/dL [facility] Glucose (Bld) [Mass/Vol]on 10-09-2022 Glucose [Mass/Vol] 113 mg/dL High 65 - 99 mg/dL [facility] Interpretation and review of laboratory results Abnormal [facility] Glucose [Mass/Vol] 101 mg/dL High 65 - 99 mg/dL [facility] Interpretation and review of laboratory results Abnormal [facility] Glucose [Mass/Vol] 116 mg/dL High 65 - 99 mg/dL [facility] Interpretation and review of laboratory results Abnormal [facility] Wound Aerobic CultureOrdered By: Bentley Leo on 08-08-2023 Bacteria identified Aer cx Nom (Wound) No Growth After 48 Hours [facility] Microscopic observation Gram stain Nom (Wound) Few WBC [facility] Microscopic observation Gram stain Nom (Wound) Moderate RBC [facility] Microscopic observation Gram stain Nom (Wound) No Organisms Seen [facility] Glucose (Bld) [Mass/Vol]on 1 10-08-2022 Glucose [Mass/Vol] 160 mg/dL High 65 - 99 mg/dL [facility] Interpretation and review of laboratory results Abnormal [facility] Glucose [Mass/Vol] 142 mg/dL High 65 - 99 mg/dL [facility] Interpretation and review of laboratory results Abnormal [facility] US Abdomenon 08-07-2023 GE RIS GE RIS [facility] US AbdomenOrdered By: Mari Tolliver on 08-07-2023 [facility] Work Phone: CBC Auto Differentialon 07-22 Basophils (Bld) [#/Vol] 0.00 10*3/uL [facility] Basophils/100 WBC (Bld) 0.0 % [facility] Eosinophils (Bld) [#/Vol] 0.00 10*3/uL [facility] Eosinophils/100 WBC (Bld) 0.0 % [facility] Erythrocyte distribution width (RBC) [Entitic vol] 15.7 % High 11.6 - 14.8 % [facility] Hematocrit (Bld) [Volume fraction] 30.9 % Low 41.0 - 53.0 % [facility] Hemoglobin (Bld) [Mass/Vol] 9.6 g/dL Low 13.5 - 17.5 g/dL [facility] Immature granulocytes (Bld) [#/Vol] 0.01 10*3/uL [facility] Immature granulocytes/100 WBC (Bld) 0.40 % [facility] Interpretation and review of laboratory results Abnormal [facility] Lymphocytes (Bld) [#/Vol] 0.35 10*3/uL Low [facility] Lymphocytes/100 WBC (Bld) 12.9 % [facility] MCH (RBC) [Entitic mass] 21.9 pg Low 26.0 - 34.0 pg [facility] MCHC (RBC) [Mass/Vol] 31.1 g/dL 31.0 - 37.0 g/dL [facility] MCV (RBC) [Entitic vol] 70.5 fL Low 80.0 - 100.0 fL [facility] Monocytes (Bld) [#/Vol] 0.16 10*3/uL Low [facility] Monocytes/100 WBC (Bld) 5.9 % [facility] Neutrophils (Bld) [#/Vol] 2.20 10*3/uL [facility] Neutrophils/100 WBC (Bld) 80.8 % [facility] Nucleated RBC (Bld) [#/Vol] 0.00 10*3/uL [facility] Nucleated RBC/100 WBC (Bld) [Ratio] 0.0 % [facility] Platelets (Bld) [#/Vol] 84 10*3/uL Low [facility] RBC (Bld) [#/Vol] 4.38 10*6/uL Low [facility] WBC (Bld) [#/Vol] 2.72 10*3/uL Low [facility] eah [facility] CBC and Diff Morphologyon Dacrocytes LM Ql (Bld) Few [facility] Interpretation and review of laboratory results Abnormal [facility] Ovalocytes LM Ql (Bld) Moderate [facility] Polychromasia LM Ql (Bld) Few [facility] RBC morphology finding Nom (Bld) See Comment [facility] Schistocytes Auto Ql (Bld) Few Abnormal See Comment [facility] Target cells LM Ql (Bld) Many [facility] Comprehensive metabolic 2000 panelOrdered By: Violeta Garcia on 08-06-2023 Albumin [Mass/Vol] 2.7 g/dL Low 3.2 - 5.2 g/dL [facility] ALP [Catalytic activity/Vol] 64 U/L 40 - 150 U/L [facility] ALT [Catalytic activity/Vol] 14 U/L 14 - 65 U/L [facility] Anion gap [Moles/Vol] 8 mmol/L Low 10 - 20 mmol/L [facility] AST [Catalytic activity/Vol] 17 U/L [facility] Bilirubin [Mass/Vol] 0.4 mg/dL 0.0 - 1 .3 mg/dL [facility] Calcium [Mass/Vol] 8.0 mg/dL Low 8.4 - 10. 2 mg/dL [facility] Chloride [Moles/Vol] 107 mmol/L 98 - 10 8 mmol/L [facility] Creatinine [Mass/Vol] 0.60 mg/dL 0.50 - 1.30 mg/dL [facility] GFR/1.73 sq M.predicted CKD-EPI (S/P/Bld) [Vol rate/Area] 113 - PINF [facility] Glucose [Mass/Vol] 127 mg/dL High 65 - 99 mg/dL [facility] HCO3 [Moles/Vol] 29 mmol/L 21 - 32 mmol/L [facility] Interpretation and review of laboratory results Abnormal [facility] Potassium [Moles/Vol] 4.6 mmol/L 3.5 - 5.1 mmol/L [facility] Protein [Mass/Vol] 6.8 g/dL 6.0 - 8.0 g/dL [facility] Sodium [Moles/Vol] 139 mmol/L 135 - 145 mmol/L [facility] Urea nitrogen [Mass/Vol] 17 mg/dL 8 - 25 mg/dL [facility] Urea nitrogen/Creatinine [Mass ratio] 28.3 mg/mg High 10.0 - 20.[address] [facility] Glucose (Bld) [Mass/Vol]on 10-07-2022 Glucose [Mass/Vol] 136 mg/dL High 65 - 99 mg/dL [facility] Interpretation and review of laboratory results Abnormal [facility] Glucose [Mass/Vol] 124 mg/dL High 65 - 99 mg/dL [facility] Interpretation and review of laboratory results Abnormal [facility] Glucose [Mass/Vol] 124 mg/dL High 65 - 99 mg/dL [facility] Interpretation and review of laboratory results Abnormal [facility] Magnesium Levelon 08-06-2023 Magnesium [Mass/Vol] 2.1 mg/dL 1.6 - 2 .4 mg/dL [facility] Magnesium [Mass/Vol]on 08-06 Interpretation and review of laboratory results Normal [facility] Phosphate [Mass/Vol]on 08-06 Interpretation and review of laboratory results Normal [facility] Phosphoruson 08-06-2023 Phosphate [Mass/Vol] 3.5 mg/dL 2.7 - 4 .5 mg/dL [facility] US Abdomenon 08-06-2023 Radiology Study observation (narrative) [facility] CBC Auto Differentialon 07-22 Basophils (Bld) [#/Vol] 0.01 10*3/uL [facility] Basophils/100 WBC (Bld) 0.4 % [facility] Eosinophils (Bld) [#/Vol] 0.04 10*3/uL [facility] Eosinophils/100 WBC (Bld) 1.6 % [facility] Erythrocyte distribution width (RBC) [Entitic vol] 15.7 % High 11.6 - 14.8 % [facility] Hematocrit (Bld) [Volume fraction] 30.1 % Low 41.0 - 53.0 % [facility] Hemoglobin (Bld) [Mass/Vol] 9.4 g/dL Low 13.5 - 17.5 g/dL [facility] Immature granulocytes (Bld) [#/Vol] 0.01 10*3/uL [facility] Immature granulocytes/100 WBC (Bld) 0.40 % [facility] Interpretation and review of laboratory results Abnormal [facility] Lymphocytes (Bld) [#/Vol] 0.66 10*3/uL Low [facility] Lymphocytes/100 WBC (Bld) 26.6 % [facility] MCH (RBC) [Entitic mass] 21.9 pg Low 26.0 - 34.0 pg [facility] MCHC (RBC) [Mass/Vol] 31.2 g/dL 31.0 - 37.0 g/dL [facility] MCV (RBC) [Entitic vol] 70.2 fL Low 80.0 - 100.0 fL [facility] Monocytes (Bld) [#/Vol] 0.22 10*3/uL Low [facility] Monocytes/100 WBC (Bld) 8.9 % [facility] Neutrophils (Bld) [#/Vol] 1.54 10*3/uL Low [facility] Neutrophils/100 WBC (Bld) 62.1 % [facility] Nucleated RBC (Bld) [#/Vol] 0.00 10*3/uL [facility] Nucleated RBC/100 WBC (Bld) [Ratio] 0.0 % [facility] Platelets (Bld) [#/Vol] 84 10*3/uL Low [facility] RBC (Bld) [#/Vol] 4.29 10*6/uL Low [facility] eah WBC (Bld) [#/Vol] 2.48 10*3/uL Low [facility] CBC and Diff Morphologyon Interpretation and review of laboratory results Abnormal [facility] Ovalocytes LM Ql (Bld) Moderate [facility] Polychromasia LM Ql (Bld) Few [facility] RBC morphology finding Nom (Bld) See Comment [facility] Schistocytes Auto Ql (Bld) Few Abnormal See Comment [facility] Target cells LM Ql (Bld) Few [facility] Comprehensive metabolic 2000 panelOrdered By: Debbie eDutsch on 08-05-2023 Albumin [Mass/Vol] 2.6 g/dL Low 3.2 - 5.2 g/dL [facility] ALP [Catalytic activity/Vol] 70 U/L 40 - 150 U/L [facility] ALT [Catalytic activity/Vol] 14 U/L 14 - 65 U/L [facility] Anion gap [Moles/Vol] 9 mmol/L Low 10 - 20 mmol/L [facility] AST [Catalytic activity/Vol] 13 U/L [facility] Bilirubin [Mass/Vol] 0.5 mg/dL 0.0 - 1 .3 mg/dL [facility] Calcium [Mass/Vol] 7.9 mg/dL Low 8.4 - 10. 2 mg/dL [facility] Chloride [Moles/Vol] 107 mmol/L 98 - 10 8 mmol/L [facility] Creatinine [Mass/Vol] 0.75 mg/dL 0.50 - 1.30 mg/dL [facility] GFR/1.73 sq M.predicted CKD-EPI (S/P/Bld) [Vol rate/Area] 105 - PINF [facility] Glucose [Mass/Vol] 110 mg/dL High 65 - 99 mg/dL [facility] HCO3 [Moles/Vol] 27 mmol/L 21 - 32 mmol/L [facility] Interpretation and review of laboratory results Abnormal [facility] Potassium [Moles/Vol] 4.3 mmol/L 3.5 - 5.1 mmol/L [facility] Protein [Mass/Vol] 6.4 g/dL 6.0 - 8.0 g/dL [facility] Sodium [Moles/Vol] 139 mmol/L 135 - 145 mmol/L [facility] Urea nitrogen [Mass/Vol] 21 mg/dL 8 - 25 mg/dL [facility] Urea nitrogen/Creatinine [Mass ratio] 28.0 mg/mg High 10.0 - 20.[address] [facility] Glucose (Bld) [Mass/Vol]on 1 10-06-2022 Glucose [Mass/Vol] 98 mg/dL 65 - 99 mg/dL [facility] Interpretation and review of laboratory results Normal [facility] Glucose [Mass/Vol] 102 mg/dL High 65 - 99 mg/dL [facility] Interpretation and review of laboratory results Abnormal [facility] Magnesium Levelon 08-05-2023 Magnesium [Mass/Vol] 2.0 mg/dL 1.6 - 2 .4 mg/dL [facility] Magnesium [Mass/Vol]on 08-05 Interpretation and review of laboratory results Normal [facility] Phosphate [Mass/Vol]on 08-05 Interpretation and review of laboratory results Normal [facility] Phosphoruson 08-05-2023 Phosphate [Mass/Vol] 3.5 mg/dL 2.7 - 4 .5 mg/dL [facility] Reticulocytes panel (Bld)on 08-05-2023 Hemoglobin Auto (Reticulocytes) [Entitic mass] 22.8 PG Low 27.7 - 38.2 PG [facility] Immature reticulocytes (Bld) [#/Vol] 21.9 % High 2.3 - 15.9 % [facility] Interpretation and review of laboratory results Abnormal [facility] Reticulocytes (Bld) [#/Vol] 0.077 10*3/uL [facility] Reticulocytes/100 RBC (Bld) 1.8 % [facility] CBC Auto Differentialon 07-22 Basophils (Bld) [#/Vol] 0.01 10*3/uL [facility] Basophils/100 WBC (Bld) 0.4 % [facility] Eosinophils (Bld) [#/Vol] 0.06 10*3/uL [facility] Eosinophils/100 WBC (Bld) 2.6 % [facility] Erythrocyte distribution width (RBC) [Entitic vol] 15.7 % High 11.6 - 14.8 % [facility] Hematocrit (Bld) [Volume fraction] 30.6 % Low 41.0 - 53.0 % [facility] Hemoglobin (Bld) [Mass/Vol] 9.4 g/dL Low 13.5 - 17.5 g/dL [facility] Immature granulocytes (Bld) [#/Vol] 0.01 10*3/uL [facility] Immature granulocytes/100 WBC (Bld) 0.40 % [facility] Interpretation and review of laboratory results Abnormal [facility] Lymphocytes (Bld) [#/Vol] 0.67 10*3/uL Low [facility] Lymphocytes/100 WBC (Bld) 29.1 % [facility] MCH (RBC) [Entitic mass] 21.5 pg Low 26.0 - 34.0 pg [facility] MCHC (RBC) [Mass/Vol] 30.7 g/dL Low 31.0 - 37.0 g/dL [facility] MCV (RBC) [Entitic vol] 69.9 fL Low 80.0 - 100.0 fL [facility] Monocytes (Bld) [#/Vol] 0.25 10*3/uL Low [facility] Monocytes/100 WBC (Bld) 10.9 % [facility] Neutrophils (Bld) [#/Vol] 1.30 10*3/uL Low [facility] Neutrophils/100 WBC (Bld) 56.6 % [facility] Nucleated RBC (Bld) [#/Vol] 0.00 10*3/uL [facility] Nucleated RBC/100 WBC (Bld) [Ratio] 0.0 % [facility] Platelets (Bld) [#/Vol] 84 10*3/uL Low [facility] RBC (Bld) [#/Vol] 4.38 10*6/uL Low [facility] ealth WBC (Bld) [#/Vol] 2.30 10*3/uL Low [facility] eah [facility] CBC and Diff Morphologyon Ovalocytes LM Ql (Bld) Few [facility] RBC morphology finding Nom (Bld) See Comment [facility] Target cells LM Ql (Bld) Moderate [facility] Cobalamin (Vitamin B12) [Mas s/Vol]on 08-04-2023 Interpretation and review of laboratory results Normal [facility] Comprehensive metabolic 2000 panelOrdered By: Joslyn Page on 08-04-2023 Albumin [Mass/Vol] 2.7 g/dL Low 3.2 - 5.2 g/dL [facility] ALP [Catalytic activity/Vol] 65 U/L 40 - 150 U/L [facility] ALT [Catalytic activity/Vol] 15 U/L 14 - 65 U/L [facility] Anion gap [Moles/Vol] 7 mmol/L Low 10 - 20 mmol/L [facility] AST [Catalytic activity/Vol] 13 U/L [facility] Bilirubin [Mass/Vol] 0.5 mg/dL 0.0 - 1 .3 mg/dL [facility] Calcium [Mass/Vol] 8.4 mg/dL 8.4 - 10. 2 mg/dL [facility] Chloride [Moles/Vol] 107 mmol/L 98 - 10 8 mmol/L [facility] Creatinine [Mass/Vol] 0.60 mg/dL 0.50 - 1.30 mg/dL [facility] GFR/1.73 sq M.predicted CKD-EPI (S/P/Bld) [Vol rate/Area] 113 - PINF [facility] Glucose [Mass/Vol] 92 mg/dL 65 - 99 mg/dL [facility] HCO3 [Moles/Vol] 29 mmol/L 21 - 32 mmol/L [facility] Interpretation and review of laboratory results Abnormal [facility] Potassium [Moles/Vol] 4.3 mmol/L 3.5 - 5.1 mmol/L [facility] Protein [Mass/Vol] 6.6 g/dL 6.0 - 8.0 g/dL [facility] Sodium [Moles/Vol] 139 mmol/L 135 - 145 mmol/L [facility] Urea nitrogen [Mass/Vol] 18 mg/dL 8 - 25 mg/dL [facility] Urea nitrogen/Creatinine [Mass ratio] 30.0 mg/mg High 10.0 - 20.[address] [facility] Folateon 08-04-2023 Folate [Mass/Vol] 13.0 ng/mL 3.1 - 17.5 ng/mL [facility] Folate [Mass/Vol]on 08-04-20 Interpretation and review of laboratory results Normal [facility] Glucose (Bld) [Mass/Vol]on 10-05-2022 Glucose [Mass/Vol] 143 mg/dL High 65 - 99 mg/dL [facility] Interpretation and review of laboratory results Abnormal [facility] Glucose [Mass/Vol] 140 mg/dL High 65 - 99 mg/dL [facility] Interpretation and review of laboratory results Abnormal [facility] Glucose [Mass/Vol] 123 mg/dL High 65 - 99 mg/dL [facility] Interpretation and review of laboratory results Abnormal [facility] Glucose [Mass/Vol] 93 mg/dL 65 - 99 mg/dL [facility] Interpretation and review of laboratory results Normal [facility] Iron Study with Ferritinon 10-05-2022 Ferritin [Mass/Vol] 33 ng/mL 30 - 400 ng/mL [facility] Interpretation and review of laboratory results Abnormal [facility] Iron [Mass/Vol] 37 ug/dL Low [facility] h Iron binding capacity [Mass/Vol] 273 [facility] Iron saturation [Mass fraction] 14 % Low 20 - 50 % [facility] LDHon 08-04-2023 LDH Lactate to pyruvate reaction [Catalytic activity/Vol] 130 U/L 100 - 250 U/L [facility] LDH Lactate to pyruvate reac tion [Catalytic activity/Vol]on 08-04-2023 Interpretation and review of laboratory results Normal [facility] Magnesium Levelon 08-04-2023 Magnesium [Mass/Vol] 2.0 mg/dL 1.6 - 2 .4 mg/dL [facility] Magnesium [Mass/Vol]on 08-04 Interpretation and review of laboratory results Normal [facility] Phosphate [Mass/Vol]on 08-04 Interpretation and review of laboratory results Normal [facility] Phosphoruson 08-04-2023 Phosphate [Mass/Vol] 4.0 mg/dL 2.7 - 4 .5 mg/dL [facility] Vitamin B12on 08-04-2023 Cobalamin (Vitamin B12) [Mass/Vol] 305 pg/mL 193 - 986 pg/mL [facility] Wound Aerobic CultureOrdered By: Neeru Barroso on 08-04-2023 Bacteria identified Aer cx Nom (Wound) No Growth After 48 Hours [facility] Microscopic observation Gram stain Nom (Wound) Many WBC [facility] Microscopic observation Gram stain Nom (Wound) Positive [facility] Microscopic observation Gram stain Nom (Wound) Moderate RBC [facility] Bacteria identified Cx Nom ( Bld)on 08-03-2023 Interpretation and review of laboratory results Normal [facility] CBC Auto Differentialon 07-22 Basophils (Bld) [#/Vol] 0.01 10*3/uL [facility] Basophils/100 WBC (Bld) 0.3 % [facility] Eosinophils (Bld) [#/Vol] 0.07 10*3/uL [facility] Eosinophils/100 WBC (Bld) 2.1 % [facility] Erythrocyte distribution width (RBC) [Entitic vol] 16.0 % High 11.6 - 14.8 % [facility] Hematocrit (Bld) [Volume fraction] 33.4 % Low 41.0 - 53.0 % [facility] Hemoglobin (Bld) [Mass/Vol] 10.4 g/dL Low 13.5 - 17.5 g/dL [facility] Immature granulocytes (Bld) [#/Vol] 0.01 10*3/uL [facility] Immature granulocytes/100 WBC (Bld) 0.30 % [facility] Interpretation and review of laboratory results Abnormal [facility] Lymphocytes (Bld) [#/Vol] 0.76 10*3/uL Low [facility] Lymphocytes/100 WBC (Bld) 23.0 % [facility] MCH (RBC) [Entitic mass] 21.8 pg Low 26.0 - 34.0 pg [facility] MCHC (RBC) [Mass/Vol] 31.1 g/dL 31.0 - 37.0 g/dL [facility] MCV (RBC) [Entitic vol] 70.2 fL Low 80.0 - 100.0 fL [facility] Monocytes (Bld) [#/Vol] 0.34 10*3/uL [facility] Monocytes/100 WBC (Bld) 10.3 % [facility] Neutrophils (Bld) [#/Vol] 2.12 10*3/uL [facility] Neutrophils/100 WBC (Bld) 64.0 % [facility] Nucleated RBC (Bld) [#/Vol] 0.00 10*3/uL [facility] Nucleated RBC/100 WBC (Bld) [Ratio] 0.0 % [facility] Platelets (Bld) [#/Vol] 104 10*3/uL Low [facility] RBC (Bld) [#/Vol] 4.76 10*6/uL [facility] WBC (Bld) [#/Vol] 3.31 10*3/uL Low [facility] Comprehensive metabolic 2000 panelOrdered By: Jack Vines on 08-03-2023 Albumin [Mass/Vol] 3.0 g/dL Low 3.2 - 5.2 g/dL [facility] ALP [Catalytic activity/Vol] 81 U/L 40 - 150 U/L [facility] ALT [Catalytic activity/Vol] 16 U/L 14 - 65 U/L [facility] Anion gap [Moles/Vol] 7 mmol/L Low 10 - 20 mmol/L [facility] AST [Catalytic activity/Vol] 15 U/L [facility] Bilirubin [Mass/Vol] 0.5 mg/dL 0.0 - 1 .3 mg/dL [facility] Calcium [Mass/Vol] 8.3 mg/dL Low 8.4 - 10. 2 mg/dL [facility] Chloride [Moles/Vol] 105 mmol/L 98 - 10 8 mmol/L [facility] Creatinine [Mass/Vol] 0.60 mg/dL 0.50 - 1.30 mg/dL [facility] GFR/1.73 sq M.predicted CKD-EPI (S/P/Bld) [Vol rate/Area] 113 - PINF [facility] Glucose [Mass/Vol] 97 mg/dL 65 - 99 mg/dL [facility] HCO3 [Moles/Vol] 28 mmol/L 21 - 32 mmol/L [facility] Interpretation and review of laboratory results Abnormal [facility] Potassium [Moles/Vol] 4.1 mmol/L 3.5 - 5.1 mmol/L [facility] Protein [Mass/Vol] 7.4 g/dL 6.0 - 8.0 g/dL [facility] Sodium [Moles/Vol] 136 mmol/L 135 - 145 mmol/L [facility] Urea nitrogen [Mass/Vol] 17 mg/dL 8 - 25 mg/dL [facility] Urea nitrogen/Creatinine [Mass ratio] 28.3 mg/mg High 10.0 - 20.[address] [facility] Glucose (Bld) [Mass/Vol]on 10-04-2022 Glucose [Mass/Vol] 134 mg/dL High 65 - 99 mg/dL [facility] Interpretation and review of laboratory results Abnormal [facility] Glucose [Mass/Vol] 118 mg/dL High 65 - 99 mg/dL [facility] Interpretation and review of laboratory results Abnormal [facility] Glucose [Mass/Vol] 117 mg/dL High 65 - 99 mg/dL [facility] Interpretation and review of laboratory results Abnormal [facility] Glucose [Mass/Vol] 93 mg/dL 65 - 99 mg/dL [facility] Interpretation and review of laboratory results Normal [facility] Glucose [Mass/Vol] 155 mg/dL High 65 - 99 mg/dL [facility] Interpretation and review of laboratory results Abnormal [facility] Laboratory - Microbiology an d Antimicrobial susceptibilityon 08-03-2023 Bacteria identified Cx Nom (Bld) No Growth After [address] [facility] h Magnesium Levelon 08-03-2023 Magnesium [Mass/Vol] 1.8 mg/dL 1.6 - 2 .4 mg/dL [facility] No Panel Informationon 08-03 Interpretation and review of laboratory results Normal [facility] Phosphoruson 08-03-2023 Phosphate [Mass/Vol] 3.4 mg/dL 2.7 - 4 .5 mg/dL [facility] Wound Aerobic CultureOrdered By: Elodia Ngo on 08-03-2023 Bacteria identified Aer cx Nom (Wound) No Growth After 48 Hours [facility] Microscopic observation Gram stain Nom (Wound) No Organisms Seen [facility] Microscopic observation Gram stain Nom (Wound) Few WBC [facility] CBC Auto Differentialon 07-22 Basophils (Bld) [#/Vol] 0.00 10*3/uL [facility] Basophils/100 WBC (Bld) 0.0 % [facility] Eosinophils (Bld) [#/Vol] 0.06 10*3/uL [facility] Eosinophils/100 WBC (Bld) 2.3 % [facility] Erythrocyte distribution width (RBC) [Entitic vol] 15.6 % High 11.6 - 14.8 % [facility] Hematocrit (Bld) [Volume fraction] 31.4 % Low 41.0 - 53.0 % [facility] Hemoglobin (Bld) [Mass/Vol] 10.0 g/dL Low 13.5 - 17.5 g/dL [facility] Immature granulocytes (Bld) [#/Vol] 0.00 10*3/uL [facility] Immature granulocytes/100 WBC (Bld) 0.00 % [facility] Interpretation and review of laboratory results Abnormal [facility] Lymphocytes (Bld) [#/Vol] 0.65 10*3/uL Low [facility] Lymphocytes/100 WBC (Bld) 24.7 % [facility] MCH (RBC) [Entitic mass] 22.1 pg Low 26.0 - 34.0 pg [facility] MCHC (RBC) [Mass/Vol] 31.8 g/dL 31.0 - 37.0 g/dL [facility] MCV (RBC) [Entitic vol] 69.5 fL Low 80.0 - 100.0 fL [facility] Monocytes (Bld) [#/Vol] 0.22 10*3/uL Low [facility] Monocytes/100 WBC (Bld) 8.4 % [facility] Neutrophils (Bld) [#/Vol] 1.70 10*3/uL [facility] Neutrophils/100 WBC (Bld) 64.6 % [facility] Nucleated RBC (Bld) [#/Vol] 0.00 10*3/uL [facility] Nucleated RBC/100 WBC (Bld) [Ratio] 0.0 % [facility] Platelets (Bld) [#/Vol] 92 10*3/uL Low [facility] RBC (Bld) [#/Vol] 4.52 10*6/uL [facility]alth WBC (Bld) [#/Vol] 2.63 10*3/uL Low [facility] CBC and Diff Morphologyon Ovalocytes LM Ql (Bld) Moderate [facility] RBC morphology finding Nom (Bld) See Comment [facility] Target cells LM Ql (Bld) Few [facility] Comprehensive metabolic 2000 panelOrdered By: Katerin Crum on 08-02-2023 Albumin [Mass/Vol] 2.9 g/dL Low 3.2 - 5.2 g/dL [facility] ALP [Catalytic activity/Vol] 70 U/L 40 - 150 U/L [facility] ALT [Catalytic activity/Vol] 15 U/L 14 - 65 U/L [facility] Anion gap [Moles/Vol] 7 mmol/L Low 10 - 20 mmol/L [facility] AST [Catalytic activity/Vol] 12 U/L [facility] Bilirubin [Mass/Vol] 0.6 mg/dL 0.0 - 1 .3 mg/dL [facility] Calcium [Mass/Vol] 8.5 mg/dL 8.4 - 10. 2 mg/dL [facility] Chloride [Moles/Vol] 106 mmol/L 98 - 10 8 mmol/L [facility] Creatinine [Mass/Vol] 0.62 mg/dL 0.50 - 1.30 mg/dL [facility] GFR/1.73 sq M.predicted CKD-EPI (S/P/Bld) [Vol rate/Area] 111 - PINF [facility] Glucose [Mass/Vol] 92 mg/dL 65 - 99 mg/dL [facility] HCO3 [Moles/Vol] 28 mmol/L 21 - 32 mmol/L [facility] Interpretation and review of laboratory results Abnormal [facility] Potassium [Moles/Vol] 4.4 mmol/L 3.5 - 5.1 mmol/L [facility] Protein [Mass/Vol] 7.0 g/dL 6.0 - 8.0 g/dL [facility] Sodium [Moles/Vol] 137 mmol/L 135 - 145 mmol/L [facility] Urea nitrogen [Mass/Vol] 17 mg/dL 8 - 25 mg/dL [facility] Urea nitrogen/Creatinine [Mass ratio] 27.4 mg/mg High 10.0 - 20.[address] [facility] Glucose (Bld) [Mass/Vol]on 10-03-2022 Glucose [Mass/Vol] 125 mg/dL High 65 - 99 mg/dL [facility] Interpretation and review of laboratory results Abnormal [facility] Glucose [Mass/Vol] 181 mg/dL High 65 - 99 mg/dL [facility] Interpretation and review of laboratory results Abnormal [facility] Glucose [Mass/Vol] 127 mg/dL High 65 - 99 mg/dL [facility] Interpretation and review of laboratory results Abnormal [facility] Glucose [Mass/Vol] 104 mg/dL High 65 - 99 mg/dL [facility] Interpretation and review of laboratory results Abnormal [facility] Magnesium Levelon 08-02-2023 Magnesium [Mass/Vol] 2.0 mg/dL 1.6 - 2 .4 mg/dL [facility] Magnesium [Mass/Vol]on 08-02 Interpretation and review of laboratory results Normal [facility] Phosphate [Mass/Vol]on 08-02 Interpretation and review of laboratory results Normal [facility] Phosphoruson 08-02-2023 Phosphate [Mass/Vol] 3.8 mg/dL 2.7 - 4 .5 mg/dL [facility] CBC Auto Differentialon 07-22 Basophils (Bld) [#/Vol] 0.01 10*3/uL [facility] Basophils/100 WBC (Bld) 0.4 % [facility] Eosinophils (Bld) [#/Vol] 0.07 10*3/uL [facility] Eosinophils/100 WBC (Bld) 2.9 % [facility] Erythrocyte distribution width (RBC) [Entitic vol] 15.8 % High 11.6 - 14.8 % [facility] Hematocrit (Bld) [Volume fraction] 30.3 % Low 41.0 - 53.0 % [facility] Hemoglobin (Bld) [Mass/Vol] 9.6 g/dL Low 13.5 - 17.5 g/dL [facility] Immature granulocytes (Bld) [#/Vol] 0.01 10*3/uL [facility] Immature granulocytes/100 WBC (Bld) 0.40 % [facility] Interpretation and review of laboratory results Abnormal [facility] Lymphocytes (Bld) [#/Vol] 0.62 10*3/uL Low [facility] Lymphocytes/100 WBC (Bld) 25.5 % [facility] MCH (RBC) [Entitic mass] 22.2 pg Low 26.0 - 34.0 pg [facility] MCHC (RBC) [Mass/Vol] 31.7 g/dL 31.0 - 37.0 g/dL [facility] MCV (RBC) [Entitic vol] 70.1 fL Low 80.0 - 100.0 fL [facility] Monocytes (Bld) [#/Vol] 0.20 10*3/uL Low [facility] Monocytes/100 WBC (Bld) 8.2 % [facility] Neutrophils (Bld) [#/Vol] 1.52 10*3/uL Low [facility] Neutrophils/100 WBC (Bld) 62.6 % [facility] Nucleated RBC (Bld) [#/Vol] 0.00 10*3/uL [facility] Nucleated RBC/100 WBC (Bld) [Ratio] 0.0 % [facility] Platelets (Bld) [#/Vol] 89 10*3/uL Low [facility] RBC (Bld) [#/Vol] 4.32 10*6/uL Low [facility] WBC (Bld) [#/Vol] 2.43 10*3/uL Low [facility]alth [facility] CBC and Diff Morphologyon Ovalocytes LM Ql (Bld) Moderate [facility] RBC morphology finding Nom (Bld) See Comment [facility] Target cells LM Ql (Bld) Few [facility] Comprehensive metabolic 2000 panelon 08-01-2023 Albumin [Mass/Vol] 2.6 g/dL Low 3.2 - 5.2 g/dL [facility] ALP [Catalytic activity/Vol] 68 U/L 40 - 150 U/L [facility] ALT [Catalytic activity/Vol] 13 U/L Low 14 - 65 U/L [facility] Anion gap [Moles/Vol] 9 mmol/L Low 10 - 20 mmol/L [facility] AST [Catalytic activity/Vol] 12 U/L [facility] Bilirubin [Mass/Vol] 0.6 mg/dL 0.0 - 1 .3 mg/dL [facility] Calcium [Mass/Vol] 7.9 mg/dL Low 8.4 - 10. 2 mg/dL [facility] Chloride [Moles/Vol] 105 mmol/L 98 - 10 8 mmol/L [facility] Creatinine [Mass/Vol] 0.70 mg/dL 0.50 - 1.30 mg/dL [facility] GFR/1.73 sq M.predicted CKD-EPI (S/P/Bld) [Vol rate/Area] 107 - PINF [facility] Glucose [Mass/Vol] 182 mg/dL High 65 - 99 mg/dL [facility] HCO3 [Moles/Vol] 27 mmol/L 21 - 32 mmol/L [facility] Interpretation and review of laboratory results Abnormal [facility] Potassium [Moles/Vol] 3.9 mmol/L 3.5 - 5.1 mmol/L [facility] Protein [Mass/Vol] 6.7 g/dL 6.0 - 8.0 g/dL [facility] Sodium [Moles/Vol] 137 mmol/L 135 - 145 mmol/L [facility] Urea nitrogen [Mass/Vol] 16 mg/dL 8 - 25 mg/dL [facility] Urea nitrogen/Creatinine [Mass ratio] 22.9 mg/mg High 10.0 - 20.[address] [facility] Creatinine [Mass/Vol]on 07-22 GFR/1.73 sq M.predicted CKD-EPI (S/P/Bld) [Vol rate/Area] 111 - PINF [facility] Interpretation and review of laboratory results Normal [facility] Creatinine, serumon 08-01-20 Creatinine [Mass/Vol] 0.63 mg/dL 0.50 - 1.30 mg/dL [facility] Glucose (Bld) [Mass/Vol]on 10-02-2022 Glucose [Mass/Vol] 111 mg/dL High 65 - 99 mg/dL [facility] Interpretation and review of laboratory results Abnormal [facility] Glucose [Mass/Vol] 127 mg/dL High 65 - 99 mg/dL [facility] Interpretation and review of laboratory results Abnormal [facility] Magnesium Levelon 08-01-2023 Magnesium [Mass/Vol] 1.8 mg/dL 1.6 - 2 .4 mg/dL [facility] Magnesium [Mass/Vol]on 08-01 Interpretation and review of laboratory results Normal [facility] Phosphate [Mass/Vol]on 08-01 Interpretation and review of laboratory results Normal [facility] Phosphoruson 08-01-2023 Phosphate [Mass/Vol] 2.8 mg/dL 2.7 - 4 .5 mg/dL [facility] Vancomycin Level, Randomon 10-02-2022 Vancomycin [Mass/Vol] 15.5 mcg/mL [facility] Vancomycin [Mass/Vol]on 07-22 [facility] Wound Aerobic CultureOrdered By: Deonna Queen on 08-01-2023 Bacteria identified Aer cx Nom (Wound) No Growth After 48 Hours [facility] Microscopic observation Gram stain Nom (Wound) Moderate WBC [facility] Microscopic observation Gram stain Nom (Wound) No Organisms Seen [facility] Basic metabolic 2000 panelon 07-31-2023 Anion gap [Moles/Vol] 9 mmol/L Low 10 - 20 mmol/L [facility] Calcium [Mass/Vol] 7.9 mg/dL Low 8.4 - 10. 2 mg/dL [facility] Chloride [Moles/Vol] 107 mmol/L 98 - 10 8 mmol/L [facility] Creatinine [Mass/Vol] 0.70 mg/dL 0.50 - 1.30 mg/dL [facility] GFR/1.73 sq M.predicted CKD-EPI (S/P/Bld) [Vol rate/Area] 107 - PINF [facility] Glucose [Mass/Vol] 135 mg/dL High 65 - 99 mg/dL [facility] HCO3 [Moles/Vol] 27 mmol/L 21 - 32 mmol/L [facility] Interpretation and review of laboratory results Abnormal [facility] Potassium [Moles/Vol] 3.9 mmol/L 3.5 - 5.1 mmol/L [facility] Sodium [Moles/Vol] 139 mmol/L 135 - 145 mmol/L [facility] Urea nitrogen [Mass/Vol] 16 mg/dL 8 - 25 mg/dL [facility] Urea nitrogen/Creatinine [Mass ratio] 22.9 mg/mg High 10.0 - 20.[address] [facility] Creatinine [Mass/Vol]on 07-22 GFR/1.73 sq M.predicted CKD-EPI (S/P/Bld) [Vol rate/Area] 107 - PINF [facility] Interpretation and review of laboratory results Normal [facility] Creatinine, serumon 07-31-20 Creatinine [Mass/Vol] 0.71 mg/dL 0.50 - 1.30 mg/dL [facility] Glucose (Bld) [Mass/Vol]on 10-01-2022 Glucose [Mass/Vol] 137 mg/dL High 65 - 99 mg/dL [facility] Interpretation and review of laboratory results Abnormal [facility] Glucose [Mass/Vol] 173 mg/dL High 65 - 99 mg/dL [facility] Interpretation and review of laboratory results Abnormal [facility] Glucose [Mass/Vol] 155 mg/dL High 65 - 99 mg/dL [facility] Interpretation and review of laboratory results Abnormal [facility] Glucose [Mass/Vol] 88 mg/dL 65 - 99 mg/dL [facility] Interpretation and review of laboratory results Normal [facility] Magnesium Levelon 07-31-2023 Magnesium [Mass/Vol] 1.9 mg/dL 1.6 - 2 .4 mg/dL [facility] Magnesium [Mass/Vol]on 07-31 Interpretation and review of laboratory results Normal [facility] Wound Aerobic CultureOrdered By: Deonna Queen on 07-31-2023 Bacteria identified Aer cx Nom (Wound) Moderate Growth Normal Skin Sobeida [facility] Microscopic observation Gram stain Nom (Wound) No Organisms Seen [facility] Microscopic observation Gram stain Nom (Wound) No WBC Seen [facility] Microscopic observation Gram stain Nom (Wound) Rare RBC [facility] CBC Auto Differentialon Basophils (Bld) [#/Vol] 0.01 10*3/uL [facility] Basophils/100 WBC (Bld) 0.4 % [facility] Eosinophils (Bld) [#/Vol] 0.06 10*3/uL [facility] Eosinophils/100 WBC (Bld) 2.3 % [facility] Erythrocyte distribution width (RBC) [Entitic vol] 15.8 % High 11.6 - 14.8 % [facility] Hematocrit (Bld) [Volume fraction] 32.4 % Low 41.0 - 53.0 % [facility] Hemoglobin (Bld) [Mass/Vol] 10.1 g/dL Low 13.5 - 17.5 g/dL [facility] Immature granulocytes (Bld) [#/Vol] 0.01 10*3/uL [facility] Immature granulocytes/100 WBC (Bld) 0.40 % [facility] Interpretation and review of laboratory results Abnormal [facility] Lymphocytes (Bld) [#/Vol] 0.75 10*3/uL Low [facility] Lymphocytes/100 WBC (Bld) 29.3 % [facility] MCH (RBC) [Entitic mass] 21.9 pg Low 26.0 - 34.0 pg [facility] MCHC (RBC) [Mass/Vol] 31.2 g/dL 31.0 - 37.0 g/dL [facility] MCV (RBC) [Entitic vol] 70.1 fL Low 80.0 - 100.0 fL [facility] Monocytes (Bld) [#/Vol] 0.19 10*3/uL Low [facility] Monocytes/100 WBC (Bld) 7.4 % [facility] Neutrophils (Bld) [#/Vol] 1.54 10*3/uL Low [facility] Neutrophils/100 WBC (Bld) 60.2 % [facility] Nucleated RBC (Bld) [#/Vol] 0.00 10*3/uL [facility] Nucleated RBC/100 WBC (Bld) [Ratio] 0.0 % [facility] Platelets (Bld) [#/Vol] 105 10*3/uL Low [facility] RBC (Bld) [#/Vol] 4.62 10*6/uL [facility] ealth WBC (Bld) [#/Vol] 2.56 10*3/uL Low [facility] eah [facility] CBC and Diff Morphologyon Ovalocytes LM Ql (Bld) Moderate [facility] RBC morphology finding Nom (Bld) See Comment [facility] Target cells LM Ql (Bld) Few [facility] CRP [Mass/Vol]on 07-30-2023 Interpretation and review of laboratory results Normal [facility] CRP, Inflammationon 07-30-20 CRP [Mass/Vol] 5.2 mg/L NINF - 10.0 mg/L [facility] CT Knee - right W contrast I Von 07-30-2023 GE RIS GE RIS [facility] CT Knee - right W contrast I VOrdered By: Rodolfo Garcia on 07-30-2023 [facility] Work Phone: ESR Westergren method (Bld) [Velocity]on 07-30-2023 ESR (Bld) [Velocity] 12 mm/h [facility] Interpretation and review of laboratory results Normal [facility] Glucose (Bld) [Mass/Vol]on 1 09-30-2022 Glucose [Mass/Vol] 129 mg/dL High 65 - 99 mg/dL [facility] Interpretation and review of laboratory results Abnormal [facility] Glucose [Mass/Vol] 194 mg/dL High 65 - 99 mg/dL [facility] Interpretation and review of laboratory results Abnormal [facility] Glucose [Mass/Vol] 129 mg/dL High 65 - 99 mg/dL [facility] Interpretation and review of laboratory results Abnormal [facility] Glucose [Mass/Vol] 116 mg/dL High 65 - 99 mg/dL [facility] Interpretation and review of laboratory results Abnormal [facility] HbA1c (Bld) [Mass fraction]O rdered By: Britni Aleman on 07-30-2023 Average glucose Estimated from glycated hemoglobin (Bld) [Mass/Vol] 88 mg/dL 68 - 114 mg/dL [facility] Interpretation and review of laboratory results Normal [facility] Hemoglobin [id number] By: Soco Aleman on 07-30-2023 HbA1c (Bld) [Mass fraction] 4.7 % 4.0 - 5.6 % [facility] MRSA DNA Amplified ProbeOrde red By: Claudia Gross on 07-30-2023 MRSA DNA HERMAN+probe Ql (Unsp spec) Negative Not Detected, MRSA NEGATIVE [facility] MRSA DNA HERMAN+probe Ql (Unsp spec)Ordered By: Claudia Gross on 07-30-2023 Interpretation and review of laboratory results Normal [facility] Magnesiumon 07-30-2023 Magnesium [Mass/Vol] 1.9 mg/dL 1.6 - 2 .4 mg/dL [facility] Magnesium [Mass/Vol]on 07-30 [facility] No Panel Informationon 07-30 [facility] Interpretation and review of laboratory results Normal [facility] Renal function 2000 panelon 07-30-2023 Albumin [Mass/Vol] 2.8 g/dL Low 3.2 - 5.2 g/dL [facility] Anion gap [Moles/Vol] 7 mmol/L Low 10 - 20 mmol/L [facility] Calcium [Mass/Vol] 8.1 mg/dL Low 8.4 - 10. 2 mg/dL [facility] Chloride [Moles/Vol] 105 mmol/L 98 - 10 8 mmol/L [facility] Creatinine [Mass/Vol] 0.67 mg/dL 0.50 - 1.30 mg/dL [facility] GFR/1.73 sq M.predicted CKD-EPI (S/P/Bld) [Vol rate/Area] 109 - PINF [facility] Glucose [Mass/Vol] 94 mg/dL 65 - 99 mg/dL [facility] HCO3 [Moles/Vol] 30 mmol/L 21 - 32 mmol/L [facility] Interpretation and review of laboratory results Abnormal [facility] Phosphate [Mass/Vol] 3.7 mg/dL 2.7 - 4 .5 mg/dL [facility] Potassium [Moles/Vol] 4.1 mmol/L 3.5 - 5.1 mmol/L [facility] Sodium [Moles/Vol] 138 mmol/L 135 - 145 mmol/L [facility] Urea nitrogen [Mass/Vol] 14 mg/dL 8 - 25 mg/dL [facility] Urea nitrogen/Creatinine [Mass ratio] 20.9 mg/mg High 10.0 - 20.0 [facility] TSH DL <= 0.005 mIU/L Qnon 1 09-30-2022 TSH Qn 1.70 m[IU]/L [facility] Basic metabolic 2000 panelon 07-29-2023 Anion gap [Moles/Vol] 7 mmol/L Low 10 - 20 mmol/L [facility] Calcium [Mass/Vol] 8.2 mg/dL Low 8.4 - 10. 2 mg/dL [facility] Chloride [Moles/Vol] 105 mmol/L 98 - 10 8 mmol/L [facility] Creatinine [Mass/Vol] 0.61 mg/dL 0.50 - 1.30 mg/dL [facility] GFR/1.73 sq M.predicted CKD-EPI (S/P/Bld) [Vol rate/Area] 112 - PINF [facility] Glucose [Mass/Vol] 140 mg/dL High 65 - 99 mg/dL [facility] HCO3 [Moles/Vol] 29 mmol/L 21 - 32 mmol/L [facility] Interpretation and review of laboratory results Abnormal [facility] Potassium [Moles/Vol] 3.9 mmol/L 3.5 - 5.1 mmol/L [facility] Sodium [Moles/Vol] 137 mmol/L 135 - 145 mmol/L [facility] Urea nitrogen [Mass/Vol] 15 mg/dL 8 - 25 mg/dL [facility] Urea nitrogen/Creatinine [Mass ratio] 24.6 mg/mg High 10.0 - 20.0 [facility] CBC Auto Differentialon Basophils (Bld) [#/Vol] 0.00 10*3/uL [facility] Basophils/100 WBC (Bld) 0.0 % [facility] Eosinophils (Bld) [#/Vol] 0.03 10*3/uL [facility] Eosinophils/100 WBC (Bld) 1.1 % [facility] Erythrocyte distribution width (RBC) [Entitic vol] 15.8 % High 11.6 - 14.8 % [facility] Hematocrit (Bld) [Volume fraction] 30.8 % Low 41.0 - 53.0 % [facility] Hemoglobin (Bld) [Mass/Vol] 9.7 g/dL Low 13.5 - 17.5 g/dL [facility] Immature granulocytes (Bld) [#/Vol] 0.01 10*3/uL [facility] Immature granulocytes/100 WBC (Bld) 0.40 % [facility] Interpretation and review of laboratory results Abnormal [facility] Lymphocytes (Bld) [#/Vol] 0.49 10*3/uL Low [facility] Lymphocytes/100 WBC (Bld) 17.9 % [facility] MCH (RBC) [Entitic mass] 22.1 pg Low 26.0 - 34.0 pg [facility] MCHC (RBC) [Mass/Vol] 31.5 g/dL 31.0 - 37.0 g/dL [facility] MCV (RBC) [Entitic vol] 70.2 fL Low 80.0 - 100.0 fL [facility] Monocytes (Bld) [#/Vol] 0.22 10*3/uL Low [facility] Monocytes/100 WBC (Bld) 8.0 % [facility] Neutrophils (Bld) [#/Vol] 1.99 10*3/uL [facility] Neutrophils/100 WBC (Bld) 72.6 % [facility] Nucleated RBC (Bld) [#/Vol] 0.00 10*3/uL [facility] Nucleated RBC/100 WBC (Bld) [Ratio] 0.0 % [facility] Platelets (Bld) [#/Vol] 100 10*3/uL Low [facility] RBC (Bld) [#/Vol] 4.39 10*6/uL Low [facility] WBC (Bld) [#/Vol] 2.74 10*3/uL Low [facility] eah [facility] CRP [Mass/Vol]on 07-29-2023 Interpretation and review of laboratory results Normal [facility] CRP, Inflammationon 07-29-20 CRP [Mass/Vol] 5.6 mg/L NINF - 10.0 mg/L [facility] CT Knee - right W contrast I Von 07-29-2023 Radiology Study observation (narrative) [facility] ESR Westergren method (Bld) [Velocity]on 07-29-2023 ESR (Bld) [Velocity] 31 mm/h High [facility] Interpretation and review of laboratory results Abnormal [facility] Glucose (Bld) [Mass/Vol]on 1 09-29-2022 Glucose [Mass/Vol] 132 mg/dL High 65 - 99 mg/dL [facility] Interpretation and review of laboratory results Abnormal [facility] Lactate [Moles/Vol]on 2022 Interpretation and review of laboratory results Normal [facility] Lactic Acid, Plasmaon 2022 Lactate [Moles/Vol] 1.5 mmol/L 0.6 - 2. 0 mmol/L [facility] No Panel Informationon 07-29 [facility] Cecilia Gonzales DPM 07/29/2023 11:24 PM [...] Response to treatment: procedure was tolerated well [facility] Wound Debridementon 07-15-20 Cecilia Gonzales DPM 07/15/2023 [...] Response to treatment: procedure was tolerated well [facility] Panel Informationon 07-08 Cecilia Gonzales DPM 07/08/2023 [...] Response to treatment: procedure was tolerated well [facility] Panel Informationon 07-01 [facility] Cecilia Gonzales DPM 07/04/2023 2:34 AM [...] Response to treatment: procedure was tolerated well [facility] Wound Debridementon 07-01-20 Cecilia Gonzales DPM [...] Response to treatment: procedure was tolerated well [facility] XR KNEE RIGHT 2 VIEWS (STAND [...] Suggestion of diffuse soft tissue swelling with [id number] joint effusion. IMPRESSION: 1. Suboptimal positioning on the lateral view. 2. Grossly, no acute osseous abnormality. 3. Total knee replacement appears intact. 4. Suggestion of diffuse soft swelling with [id number] joint effusion. [facility] Workstation ID: [id number] Dictated by: KHADAR BETH on TueMay 30, 2023 5:00:22 PM EDT Transcribed by: CARLOS BARRY on TueMay 30, 2023 6:10:49 PM EDT Finalized by: KHADAR BETH on TueMay 30, 2023 6:33:03 PM EDT Normal [facility] Comment on above: Order Comment: Injur [...] TueMay 17, 2023 4:38:31 PM EDT Normal [facility] Comment on above: Order Comment: Injur [...] Use Authorization (EUA) for the qualitative detection [id number] nucleic acid. Normal [facility] Comment on above: Result Comment: Test ing performed at [place] [address] Performed By: #### M TILA Go RENF, LIVR #### [place] [address] SARS-CoV-2 (COVID-19) RNA HERMAN+probe Ql (Unsp spec) Not detected Normal NOT DETECTED [facility] Comment on above: Result Comment: Nega [...] ACBC, RENF, LIVR #### [place] [address] NOVEL CORONAVIRUS LAB 1 - NA SOPHARYNGEALon 04-07-2023 NARRATIVE -1 This test was perfor med using isothermal HERMAN and has been approved as Emergency Use Authorization (EUA) for the qualitative detection [id number] nucleic acid. [facility] Comment on above: Testing performed at [place] [address] SARS-CoV-2 (COVID-19) RNA HERMAN+probe Ql (Unsp spec) Not detected NOT DETECTED [facility] Comment on above: Negative results do not [...] patient is critically ill or clinically deteriorating. [facility] WOUND CULTUREon 04-03-2023 WOUND CULTURE SPECIMEN DESCRIPTION [...] * * Result Note: Testing performed at [place] [address] * REPORT STATUS 04/03/2023 * Result Note: [...] LEVEL RESISTANT STREPTOMYCIN HIGH LEVEL RESISTANT Normal [facility] Comment on above: Performed By: #### TILA Gold RENF, LIVR #### [place] [address] MRSA SCREENon 03-31-2023 MRSA DNA HERMAN+probe Ql (Unsp spec) Negative Normal NEGATIVE [facility] Comment on above: Performed By: #### TILA Gold RENF, LIVR #### [place] [address] STAPH AUREUS SCREEN Negative Normal NEGATIVE [facility] Comment on above: Result Comment: TEST ING PERFORMED BY PCR Testing performed at [place] [address] Performed By: #### TILA Gold RENF, LIVR #### [place] [address] BLOOD CULTUREon 03-22-2023 COMMENT LEFT FOREARM [facility] COMMENT LAC [facility] CBCon 03-22-2023 ABSOLUTE BAS 0.0 10*3/uL Normal 0.0-0.2 [facility] Comment on above: Result Comment: Test ing performed at [place] [address] Performed By: #### TILA Gold, WILNER, LIVR #### [place] [address] ABSOLUTE EOS 0.3 10*3/uL Normal 0.0-0.7 [facility] Comment on above: Performed By: #### TILA Gold, WILNER, LIVR #### Testing performed at [address] [address] ABSOLUTE NEUTROPHIL COUNT 1.4 10*3/uL Normal 1.4-6.5 [facility] Comment on above: Performed By: #### Micheal Go, ACBC, RENF, LIVR #### Testing performed at [address] [address] Basophils/100 WBC (Bld) 0.7 % Normal 0.0-2.0 [facility] Comment on above: Performed By: #### Micheal Go, ACBC, RENF, LIVR #### Testing performed at [address] [address] DTYPE AUTO DIFF Normal [facility] Comment on above: Performed By: #### Micheal Go, ACBC, RENF, LIVR #### Testing performed at [address] [address] Eosinophils/100 WBC (Bld) 11.1 % High 0.0-11.0 [facility] Comment on above: Performed By: #### Micheal Go, ACBC, RENF, LIVR #### Testing performed at [address] [address] Lymphocytes (Bld) [#/Vol] 0.7 10*3/uL Low 1.2-3.4 [facility] Comment on above: Performed By: #### Micheal G, ACBC, RENF, LIVR #### Testing performed at [address] [address] Lymphocytes/100 WBC (Bld) 25.1 % Normal 20.0-55.0 [facility] Comment on above: Performed By: #### M G, ACBC, RENF, LIVR #### Testing performed at [address] [address] Monocytes (Bld) [#/Vol] 0.3 10*3/uL Normal 0.0-0.7 [facility] Comment on above: Performed By: #### Micheal G, ACBC, RENF, LIVR #### Testing performed at [address] [address] Monocytes/100 WBC (Bld) 10.0 % Normal 0.0-10.0 [facility] Comment on above: Performed By: #### Micheal Go, TILA, SANDRAF, LIVR #### Testing performed at [place] [id number] Neutrophils/100 WBC (Bld) 53.1 % Normal 37.0-75.0 [facility] Comment on above: Performed By: #### Micheal Go, TILA, SANDRAF, LIVR #### Testing performed at [place] [id number] Erythrocyte distribution width (RBC) [Ratio] 16.4 % High 11.5-14.5 [facility] Comment on above: Performed By: #### Micheal Go, TILA, SANDRAF, LIVR #### [place] [address] Hematocrit (Bld) [Volume fraction] 30.5 % Low 42.0-52.0 [facility] Comment on above: Performed By: #### Micheal Go, TILA, RENF, LIVR #### Testing performed at [place] [id number] Hemoglobin (Bld) [Mass/Vol] 9.8 g/dL Low 14.0-18.0 [facility] Comment on above: Performed By: #### Micheal Go, TILA, RENF, LIVR #### Testing performed at [place] [id number] MCH (RBC) [Entitic mass] 23.0 pg Low 26.0-35.0 [facility] Comment on above: Performed By: #### Micheal Go, LEIDABC, RENF, LIVR #### Testing performed at [place] [id number] MCHC (RBC) [Mass/Vol] 32.2 g/dL Normal 27.0-37.0 [facility] Comment on above: Performed By: #### Micheal Go, ACBC, RENF, LIVR #### Testing performed at [place] [id number] MCV (RBC) [Entitic vol] 71.6 fL Low 80.0-100.0 [facility] Comment on above: Performed By: #### TILA Gold RENF, LIVR #### [place] [address] Platelet mean volume (Bld) [Entitic vol] 8.5 fL Normal 7.4-11.0 [facility] Comment on above: Performed By: #### Micheal Go, TILA, WILNER, LIVR #### [place] [address] Platelets (Bld) [#/Vol] 101 10*3/uL Low 130-400 [facility] Comment on above: Performed By: #### Micheal Go, TILA, WILNER, LIVR #### [place] [address] RBC (Bld) [#/Vol] 4.27 10*6/uL Normal 4.0-6.1 [facility] Comment on above: Performed By: #### Micheal Go, TILA, WILNER, LIVR #### [place] [address] WBC (Bld) [#/Vol] 2.6 10*3/uL Low 3.6-11.0 [facility] Comment on above: Performed By: #### Micheal Go, TILA, WILNER, LIVR #### [place] [address] CBC, EDIF, PLATELETon 2022 ABSOLUTE BASOPHIL COUNT 0.0 10*3/uL 0.0 - 0.2 10*3/uL [facility] Comment on above: Testing performed at [place] [address] Basophils/100 WBC (Bld) 0.7 % 0.0 - 2.0 % [facility] Differential cell count method Nom (Bld) AUTO DIFF % [facility] Eosinophils (Bld) [#/Vol] 0.3 10*3/uL 0.0 - 0.7 10*3/uL [facility] Eosinophils/100 WBC (Bld) 11.1 % High 0.0 - 11.0 % [facility] Erythrocyte distribution width (RBC) [Ratio] 16.4 % High 11.5 - 14.5 % [facility] Hematocrit (Bld) [Volume fraction] 30.5 % Low 42.0 - 52.0 % [facility] Hemoglobin (Bld) [Mass/Vol] 9.8 g/dL Low [facility] Interpretation and review of laboratory results Abnormal [facility] Lymphocytes (Bld) [#/Vol] 0.7 10*3/uL Low 1.2 - 3.4 10*3/uL [facility] Lymphocytes/100 WBC (Bld) 25.1 % 20.0 - 55.0 % [facility] MCH (RBC) [Entitic mass] 23.0 pg Low 26.0 - 35.0 PG [facility] MCHC (RBC) [Mass/Vol] 32.2 g/dL [facility] MCV (RBC) [Entitic vol] 71.6 fL Low [facility] Monocytes (Bld) [#/Vol] 0.3 10*3/uL 0.0 - 0.7 10*3/uL [facility] Monocytes/100 WBC (Bld) 10.0 % 0.0 - 10.0 % [facility] Neutrophils (Bld) [#/Vol] 1.4 10*3/uL 1.4 - 6.5 10*3/uL [facility] Neutrophils/100 WBC (Bld) 53.1 % 37.0 - 75.0 % [facility] Platelet mean volume (Bld) [Entitic vol] 8.5 fL [facility] Platelets (Bld) [#/Vol] 101 10*3/uL Low 130 - 400 10*3/uL [facility] RBC (Bld) [#/Vol] 4.27 10*6/uL 4.0 - 6.1 10*6/uL [facility] WBC (Bld) [#/Vol] 2.6 10*3/uL Low 3.6 - 11.0 10*3/uL [facility] - Microbiology an d Antimicrobial susceptibilityon 03-22-2023 Bacteria identified Cx Nom (Unsp spec) NO GROWTH 5 DAYS [facility] Comment on above: Testing performed at [place] [address] Laboratory - Miscellaneous t estson 03-22-2023 Service comment (Unsp spec) [Interp] 03/22/2023 [facility] Comment on above: FINAL MAGNESIUMon 03-22-2023 Magnesium [Mass/Vol] 2.1 mg/dL Normal 1.6-2.3 [facility] Comment on above: Result Comment: Test ing performed at [place] [address] Performed By: #### M G, ACBC, RENF, LIVR #### [place] [address] Magnesium [Mass/Vol] 2.1 mg/dL [facility] Comment on above: Testing performed at [place] [address] No Panel Informationon 03-22 [facility] SPECIMEN DESCRIPTION PERIPHERAL BLOOD DRAW [facility] RENAL FUNCTION PANELon 03-22 Albumin [Mass/Vol] 3.2 G/dl Low 3.5 - 5.0 G/dl [facility] Calcium [Mass/Vol] 7.9 mg/dL Low [facility] Chloride [Moles/Vol] 103 mmol/L [facility] Comment on above: Please note: Triglyc eride levels of 600mg/dL or higher may positively bias chloride results by approximately 2.1 mmol CO2 [Moles/Vol] 31 mmol/L High [facility] Creatinine [Mass/Vol] 0.70 mg/dL [facility] GFR COMMENT Average GFR for 50-5 9 years old = 93. [facility] Comment on above: Chronic Kidney disea se, GFR = <60. Kidney failure, GFR = <15. The GFR estimate is not adjusted for extreme body surface area or acute process, nor has it been validated for women or ethnic groups other than and . Testing performed at [place] [id number] GFR/1.73 sq M.predicted among blacks MDRD (S/P/Bld) [Vol rate/Area] 150 mL/min/{1.73_m2} ml/min/1.73s q.m [facility] GFR/1.73 sq M.predicted among non-blacks MDRD (S/P/Bld) [Vol rate/Area] 124 mL/min/{1.73_m2} ml/min/1.73s q.m [facility] Glucose post fast [Mass/Vol] 102 mg/dL High [facility] Comment on above: NORMAL <100 mg/dL PREDIABETES 101-126 mg/dL DIABETES 126 mg/dL or higher Interpretation and review of laboratory results Abnormal [facility] Phosphate [Mass/Vol] 3.5 mg/dL [facility] Potassium [Moles/Vol] 4.4 mmol/L [facility] Sodium [Moles/Vol] 137 mmol/L [facility] Urea nitrogen [Mass/Vol] 27 mg/dL High [facility] RENAL PANEL,FASTINGon 2022 ALBUMIN 3.2 G/dl Low 3.5-5.0 [facility] Comment on above: Performed By: #### Micheal Go, TILA, WILNER, LIVR #### Testing performed at [place] [id number] Calcium [Mass/Vol] 7.9 mg/dL Low 8.4-10.2 [facility] Comment on above: Performed By: #### TILA Gold, WILNER, LIVR #### Testing performed at [address] [address] Chloride [Moles/Vol] 103 mmol/L Normal 98-107 [facility] Comment on above: Result Comment: Krystian boyd note: Triglyceride levels of 600mg/dL or higher may positively bias chloride results by approximately 2.1 mmol Performed By: #### Micheal Go, TILA, RENF, LIVR #### Testing performed at [address] [address] CO2 [Moles/Vol] 31 mmol/L High 22-30 [facility] Comment on above: Performed By: #### Micheal Go, TILA, SANDRAF, LIVR #### Testing performed at [address] [address] Creatinine [Mass/Vol] 0.70 mg/dL Normal 0.7-1.2 [facility] Comment on above: Performed By: #### Micheal Go, ACBC, RENF, LIVR #### [place] [address] EST. GFR, 150 ml/min/1.73sq.m [facility] Comment on above: Performed By: #### Micheal Go, ACBC, RENF, LIVR #### [place] [address] EST. GFR,Non 124 ml/min/1.73sq.m [facility] Comment on above: Performed By: #### Micheal Go, ACBC, RENF, LIVR #### [place] [address] GFR Information Average GFR for 50-5 9 years old = 93. Normal [facility] Comment on above: Result Comment: Phlebotomist Prn kaveh Kidney disease, GFR = <60. Kidney failure, GFR = <15. The GFR estimate is not adjusted for extreme body surface area or acute process, nor has it been validated for women or ethnic groups other than and . Testing performed at [place] [address] Performed By: #### Micheal Go, LEIDABC, RENF, LIVR #### [place] [address] Glucose [Mass/Vol] 102 mg/dL High 70-100 [facility] Comment on above: Result Comment: NORMAL <100 mg/dL PREDIABETES 101-126 mg/dL DIABETES 126 mg/dL or higher Performed By: #### Micheal Go, ACBC, RENF, LIVR #### [place] [address] PHOSPHOROUS 3.5 MG/DL Normal 2.5-4.5 [facility] Comment on above: Performed By: #### Micheal Go, ACBC, RENF, LIVR #### [place] [address] Potassium [Moles/Vol] 4.4 mmol/L Normal 3.5-5.1 [facility] Comment on above: Performed By: #### M G, ACBC, RENF, LIVR #### [place] [address] Sodium [Moles/Vol] 137 mmol/L Normal 137-145 [facility] Comment on above: Performed By: #### M G, ACBC, RENF, LIVR #### [place] [address] Urea nitrogen [Mass/Vol] 27 mg/dL High 7-20 [facility] Comment on above: Performed By: #### M G, ACBC, RENF, LIVR #### [place] [address] CBCon 03-21-2023 Basophils/100 WBC (Bld) 1 % Normal 0-2.0 [facility] Comment on above: Performed By: #### Micheal G, ACBC, RENF, LIVR #### [place] [address] DTYPE MANUAL DIFF Normal [facility] Comment on above: Performed By: #### Micheal G, ACBC, RENF, LIVR #### [place] [address] Eosinophils/100 WBC (Bld) 5 % Normal 0-7.0 [facility] Comment on above: Performed By: #### M G, ACBC, RENF, LIVR #### [place] [address] Lymphocytes/100 WBC (Bld) 30 % Normal 20.5-51.1 [facility] Comment on above: Performed By: #### M G, ACBC, RENF, LIVR #### [place] [address] Monocytes/100 WBC (Bld) 6 % Normal 1.7-10.0 [facility] Comment on above: Performed By: #### M G, ACBC, RENF, LIVR #### Testing performed at [place] [id number] Neutrophils/100 WBC (Bld) 58 % Normal 42.2-75.2 [facility] Comment on above: Performed By: #### Micheal Go, TILA, SANDRAF, LIVR #### [place] [address] PLATELET COMMENT DECREASED Normal [facility] Comment on above: Result Comment: Test ing performed at [place] [address] Performed By: #### Micheal Go, ACBC, RENF, LIVR #### [place] [address] RBC morphology finding Nom (Bld) 1+ Normal [facility] Comment on above: Result Comment: MICR OCYTOSIS Performed By: #### Micheal Go, TILA, RENF, LIVR #### [place] [address] Erythrocyte distribution width (RBC) [Ratio] 16.4 % High 11.5-14.5 [facility] Comment on above: Performed By: #### Micheal Go, LEIDABC, RENF, LIVR #### [place] [address] Hematocrit (Bld) [Volume fraction] 29.6 % Low 42.0-52.0 [facility] Comment on above: Performed By: #### Micheal Go, ACBC, RENF, LIVR #### [place] [address] Hemoglobin (Bld) [Mass/Vol] 9.6 g/dL Low 14.0-18.0 [facility] Comment on above: Performed By: #### Micheal Go, ACBC, RENF, LIVR #### [place] [address] MCH (RBC) [Entitic mass] 23.0 pg Low 26.0-35.0 [facility] Comment on above: Performed By: #### Micheal Go, ACBC, RENF, LIVR #### [place] [address] MCHC (RBC) [Mass/Vol] 32.3 g/dL Normal 27.0-37.0 [facility] Comment on above: Performed By: #### TILA Gold RENF, PERI #### [place] [address] MCV (RBC) [Entitic vol] 71.2 fL Low 80.0-100.0 [facility] Comment on above: Performed By: #### TILA Gold RENF, LIVR #### [place] [address] Platelet mean volume (Bld) [Entitic vol] 8.1 fL Normal 7.4-11.0 [facility] Comment on above: Result Comment: Test ing performed at [place] [address] Performed By: #### TILA Gold RENF, LIVR #### [place] [address] Platelets (Bld) [#/Vol] 95 10*3/uL Low 130-400 [facility] Comment on above: Performed By: #### TILA Gold RENF, LIVR #### [place] [address] RBC (Bld) [#/Vol] 4.16 10*6/uL Normal 4.0-6.1 [facility] Comment on above: Performed By: #### ITLA Gold RENF, LIVR #### [place] [address] WBC (Bld) [#/Vol] 2.4 10*3/uL Low 3.6-11.0 [facility] Comment on above: Performed By: #### TILA Gold RENF, LIVR #### [place] [address] CBC, EDIF, PLATELETon 2022 Basophils/100 WBC (Bld) 1 % 0 - 2.0 % [facility] Differential cell count method Nom (Bld) MANUAL DIFF % [facility] Eosinophils/100 WBC (Bld) 5 % 0 - 7.0 % [facility] Erythrocyte distribution width (RBC) [Ratio] 16.4 % High 11.5 - 14.5 % [facility] Hematocrit (Bld) [Volume fraction] 29.6 % Low 42.0 - 52.0 % [facility] Hemoglobin (Bld) [Mass/Vol] 9.6 g/dL Low [facility] Interpretation and review of laboratory results Abnormal [facility] Lymphocytes/100 WBC (Bld) 30 % 20.5 - 51.1 % [facility] MCH (RBC) [Entitic mass] 23.0 pg Low 26.0 - 35.0 PG [facility] MCHC (RBC) [Mass/Vol] 32.3 g/dL [facility] MCV (RBC) [Entitic vol] 71.2 fL Low [facility] Monocytes/100 WBC (Bld) 6 % 1.7 - 10.0 % [facility] Morphology Julián (Bld) [Interp] 1+ [facility] Comment on above: MICROCYTOSIS Neutrophils/100 WBC (Bld) 58 % 42.2 - 75.2 % [facility] Platelet mean volume (Bld) [Entitic vol] 8.1 fL [facility] Platelet morphology finding Nom (Bld) DECREASED [facility] Comment on above: Testing performed at [place], [place] [address] Platelets (Bld) [#/Vol] 95 10*3/uL Low 130 - 400 10*3/uL [facility] RBC (Bld) [#/Vol] 4.16 10*6/uL 4.0 - 6.1 10*6/uL [facility] WBC (Bld) [#/Vol] 2.4 10*3/uL Low 3.6 - 11.0 10*3/uL [facility] HEPATIC FUNCTION PANELon Albumin [Mass/Vol] 3.2 g/dL [facility] ALP [Catalytic activity/Vol] 91 U/L [facility] ALT [Catalytic activity/Vol] 13 U/L NINF [facility] Comment on above: Testing performed at [place], [place] [address] AST [Catalytic activity/Vol] 26 U/L [facility] Bilirubin [Mass/Vol] 0.9 mg/dL [facility] Bilirubin.direct [Mass/Vol] 0.3 mg/dL [facility] Protein [Mass/Vol] 7.1 g/dL [facility] LIVER PANELon 03-21-2023 Albumin [Mass/Vol] 3.2 g/dL Normal 2.9-5.3 [facility] Comment on above: Performed By: #### Micheal Go, WILNER ADORNO, LIVR #### [place] [address] ALP [Catalytic activity/Vol] 91 U/L Normal 38-126 [facility] Comment on above: Performed By: #### Micheal Go, WILNER ADORNO, LIVR #### [place] [address] ALT [Catalytic activity/Vol] 13 U/L Normal <50 [facility] Comment on above: Result Comment: Test ing performed at [place] [address] Performed By: #### Micheal Go, TILA, WILNER, LIVR #### [place] [address] AST [Catalytic activity/Vol] 26 U/L Normal 17-59 [facility] Comment on above: Performed By: #### Micheal Go, TILA, SANDRAF, LIVR #### Testing performed at [place] [id number] Bilirubin [Mass/Vol] 0.9 mg/dL Normal 0.2-1.3 [facility] Comment on above: Performed By: #### Micheal Go, TILA, RENF, LIVR #### [place] [address] Bilirubin.indirect [Mass/Vol] 0.3 mg/dL Normal 0-0.4 [facility] Comment on above: Performed By: #### Micheal Go, TILA, RENF, LIVR #### [place] [address] Protein [Mass/Vol] 7.1 g/dL Normal 6.3-8.2 [facility] Comment on above: Performed By: #### M G, ACBC, RENF, LIVR #### Testing performed at [facility] [address] [place] [address] MAGNESIUMon 03-21-2023 Magnesium [Mass/Vol] 1.9 mg/dL Normal 1.6-2.3 [facility] Comment on above: Result Comment: Test ing performed at [place] [address] Performed By: #### M G, ACBC, RENF, LIVR #### Testing performed at [facility] [address] [place] [id number] Magnesium [Mass/Vol] 1.9 mg/dL [facility] Comment on above: Testing performed at [place] [address] No Panel Informationon 03-21 Raul Ng RN 03/21/2023 10:07 AM I have discussed the following issues with the ordering Clinician: Dr. Hayden Procedure explained to patient. Anatomical distortion to interfere with placement:no known restriction Arm preference for venous access: Left Arm Patient is alert, cooperative, no distress, appears stated age Patient Teaching: Yes Family Teaching: No [place] Protocol/Time Out Completed under Procedure Documentation PROCEDURE DETAILS: Midline Insertion Procedure Veins evaluated with ultrasound and appropriate vein selected. 1% Lidocaine used to anesthetize insertion site. Using standard sterile technique access was obtained. 3 Ivorian, single lumen Midline placed in L Cephalic [...] not applicable 2. Perform timeout. Yes 3. Strategy Planning Consultant: If enter sterile field, uses sterile gown and gloves, cap, mask/eye protection. N/A 4. Prep site with ChloraPrep for 30 sec minimum (if femoral 120 sec minimum). Yes 5. Sterile technique to drape patient from head to toe. Yes During the procedure, did the clinician 1. Maintain a sterile field. Yes 2. Obtain a qualified machine tank operator IF 3 unsuccessful sticks. (except if [...] [X] Tray table within reach. Lot number: [id number] Expiration Date: 2023-10-20 Arm circumference: 29 cm Internal length: 11 cm External length: 0 cm [facility] Radiology Study observation (narrative) [facility] RENAL FUNCTION PANELon 03-21 Albumin [Mass/Vol] 3.2 G/dl Low 3.5 - 5.0 G/dl [facility] Calcium [Mass/Vol] 7.5 mg/dL Low [facility] Chloride [Moles/Vol] 101 mmol/L [facility] Comment on above: Please note: Triglyc eride levels of 600mg/dL or higher may positively bias chloride results by approximately 2.1 mmol CO2 [Moles/Vol] 29 mmol/L [facility] Creatinine [Mass/Vol] 0.60 mg/dL Low [facility] GFR COMMENT Average GFR for 50-5 9 years old = 93. [facility] Comment on above: Chronic Kidney disea se, GFR = <60. Kidney failure, GFR = <15. The GFR estimate is not adjusted for extreme body surface area or acute process, nor has it been validated for women or ethnic groups other than and . Testing performed at [place], [place] [address] GFR/1.73 sq M.predicted among blacks MDRD (S/P/Bld) [Vol rate/Area] 179 mL/min/{1.73_m2} ml/min/1.73s q.m [facility] GFR/1.73 sq M.predicted among non-blacks MDRD (S/P/Bld) [Vol rate/Area] 148 mL/min/{1.73_m2} ml/min/1.73s q.m [facility] Glucose post fast [Mass/Vol] 109 mg/dL High [facility] Comment on above: NORMAL <100 mg/dL PREDIABETES 101-126 mg/dL DIABETES 126 mg/dL or higher Interpretation and review of laboratory results Abnormal [facility] Phosphate [Mass/Vol] 3.5 mg/dL [facility] Potassium [Moles/Vol] 4.4 mmol/L [facility] Sodium [Moles/Vol] 135 mmol/L Low [facility] Urea nitrogen [Mass/Vol] 28 mg/dL High [facility] RENAL PANEL,FASTINGon 2022 ALBUMIN 3.2 G/dl Low 3.5-5.0 [facility] Comment on above: Performed By: #### Micheal Go, ACBC, RENF, LIVR #### Testing performed at [address] [address] Calcium [Mass/Vol] 7.5 mg/dL Low 8.4-10.2 [facility] Comment on above: Performed By: #### Micheal Go, ACBC, RENF, LIVR #### Testing performed at [address] [address] Chloride [Moles/Vol] 101 mmol/L Normal 98-107 [facility] Comment on above: Result Comment: Krystian boyd note: Triglyceride levels of 600mg/dL or higher may positively bias chloride results by approximately 2.1 mmol Performed By: #### Micheal Go, ACBC, RENF, LIVR #### Testing performed at [address] [address] CO2 [Moles/Vol] 29 mmol/L Normal 22-30 [facility] Comment on above: Performed By: #### Micheal Go, ACBC, RENF, LIVR #### [place] [address] Creatinine [Mass/Vol] 0.60 mg/dL Low 0.7-1.2 [facility] Comment on above: Performed By: #### Micheal Go, ACBC, RENF, LIVR #### [place] [address] EST. GFR, 179 ml/min/1.73sq.m [facility] Comment on above: Performed By: #### Micheal Go, ACBC, RENF, LIVR #### [place] [address] EST. GFR,Non 148 ml/min/1.73sq.m [facility] Comment on above: Performed By: #### Micheal Go, ACBC, RENF, LIVR #### [place] [address] GFR Information Average GFR for 50-5 9 years old = 93. Normal [facility] Comment on above: Result Comment: Phlebotomist Prn kaveh Kidney disease, GFR = <60. Kidney failure, GFR = <15. The GFR estimate is not adjusted for extreme body surface area or acute process, nor has it been validated for women or ethnic groups other than and . Testing performed at [place] [address] Performed By: #### Micheal Go, ACBC, RENF, LIVR #### [place] [address] Glucose [Mass/Vol] 109 mg/dL High 70-100 [facility] Comment on above: Result Comment: NORMAL <100 mg/dL PREDIABETES 101-126 mg/dL DIABETES 126 mg/dL or higher Performed By: #### M Abbi, ACBC, RENF, LIVR #### [place] [address] PHOSPHOROUS 3.5 MG/DL Normal 2.5-4.5 [facility] Comment on above: Performed By: #### Micheal Go, ACBC, RENF, LIVR #### Testing performed at [address] [place] [address] Potassium [Moles/Vol] 4.4 mmol/L Normal 3.5-5.1 [facility] Comment on above: Performed By: #### TILA Gold RENF, LIVR #### Testing performed at [address] [address] Sodium [Moles/Vol] 135 mmol/L Low 137-145 [facility] Comment on above: Performed By: #### TILA Gold RENF, LIVR #### Testing performed at [address] [address] Urea nitrogen [Mass/Vol] 28 mg/dL High 7-20 [facility] Comment on above: Performed By: #### TILA Gold RENF, LIVR #### Testing performed at [address] [address] CBCon 03-20-2023 DTYPE MANUAL DIFF Normal [facility] Comment on above: Performed By: #### WILNER Gold ACBC #### Testing performed at [address] [address] Eosinophils/100 WBC (Bld) 5 % Normal 0-7.0 [facility] Comment on above: Performed By: #### WILNER Gold ACBC #### Testing performed at [address] [address] Lymphocytes/100 WBC (Bld) 38 % Normal 20.5-51.1 [facility] Comment on above: Performed By: #### WILNER Gold ACBC #### Testing performed at [address] [address] Monocytes/100 WBC (Bld) 8 % Normal 1.7-10.0 [facility] Comment on above: Performed By: #### WILNER Gold ACBC #### Testing performed at [address] [place] [address] Neutrophils/100 WBC (Bld) 49 % Normal 42.2-75.2 [facility] Comment on above: Performed By: #### WILNER Gold ACBC #### [place] [address] PLATELET COMMENT DECREASED Normal [facility] Comment on above: Result Comment: Test ing performed at [place] [address] Performed By: #### WILNER Gold ACBC #### [place] [address] RBC morphology finding Nom (Bld) 1+ Normal [facility] Comment on above: Result Comment: MICR OCYTOSIS 1+ POIKILOCYTE Performed By: #### WILNER Gold ACBC #### [place] [address] Erythrocyte distribution width (RBC) [Ratio] 15.9 % High 11.5-14.5 [facility] Comment on above: Performed By: #### WILNER Gold ACBC #### [place] [address] Hematocrit (Bld) [Volume fraction] 30.0 % Low 42.0-52.0 [facility] Comment on above: Performed By: #### WILNER Gold ACBC #### [place] [address] Hemoglobin (Bld) [Mass/Vol] 9.8 g/dL Low 14.0-18.0 [facility] Comment on above: Performed By: #### WILNER Gold ACBC #### [place] [address] MCH (RBC) [Entitic mass] 23.2 pg Low 26.0-35.0 [facility] Comment on above: Performed By: #### WILNER Gold ACBC #### [place] [address] MCHC (RBC) [Mass/Vol] 32.6 g/dL Normal 27.0-37.0 [facility] Comment on above: Performed By: #### WILNER Gold ACBC #### Testing performed at [place] [id number] MCV (RBC) [Entitic vol] 71.0 fL Low 80.0-100.0 [facility] Comment on above: Performed By: #### WILNER Gold ACBC #### [place] [address] Platelet mean volume (Bld) [Entitic vol] 8.5 fL Normal 7.4-11.0 [facility] Comment on above: Result Comment: Test ing performed at [place] [address] Performed By: #### WILNER Gold ACBC #### [place] [address] Platelets (Bld) [#/Vol] 94 10*3/uL Low 130-400 [facility] Comment on above: Performed By: #### WILNER Gold ACBC #### [place] [address] RBC (Bld) [#/Vol] 4.23 10*6/uL Normal 4.0-6.1 [facility] Comment on above: Performed By: #### WILNER Gold ACBC #### [place] [address] WBC (Bld) [#/Vol] 2.1 10*3/uL Low 3.6-11.0 [facility] Comment on above: Performed By: #### WILNER Gold ACBC #### [place] [address] CBC, EDIF, PLATELETon 2022 Differential cell count method Nom (Bld) MANUAL DIFF % [facility] Eosinophils/100 WBC (Bld) 5 % 0 - 7.0 % [facility] Erythrocyte distribution width (RBC) [Ratio] 15.9 % High 11.5 - 14.5 % [facility] Hematocrit (Bld) [Volume fraction] 30.0 % Low 42.0 - 52.0 % [facility] Hemoglobin (Bld) [Mass/Vol] 9.8 g/dL Low [facility] Interpretation and review of laboratory results Abnormal [facility] Lymphocytes/100 WBC (Bld) 38 % 20.5 - 51.1 % [facility] MCH (RBC) [Entitic mass] 23.2 pg Low 26.0 - 35.0 PG [facility] MCHC (RBC) [Mass/Vol] 32.6 g/dL [facility] MCV (RBC) [Entitic vol] 71.0 fL Low [facility] Monocytes/100 WBC (Bld) 8 % 1.7 - 10.0 % [facility] Morphology Julián (Bld) [Interp] 1+ [facility] Comment on above: MICROCYTOSIS 1+ POIKILOCYTE Neutrophils/100 WBC (Bld) 49 % 42.2 - 75.2 % [facility] Platelet mean volume (Bld) [Entitic vol] 8.5 fL [facility] Platelet morphology finding Nom (Bld) DECREASED [facility] Comment on above: Testing performed at [place] [address] Platelets (Bld) [#/Vol] 94 10*3/uL Low 130 - 400 10*3/uL [facility] RBC (Bld) [#/Vol] 4.23 10*6/uL 4.0 - 6.1 10*6/uL [facility] WBC (Bld) [#/Vol] 2.1 10*3/uL Low 3.6 - 11.0 10*3/uL [facility] CULTURE WOUNDon 03-20-2023 Bacteria identified Cx Nom (Unsp spec) NORMAL SKIN SOBEIDA PRESENT [facility] Comment on above: MODERATE GROWTH Testing performed at [place] [address] COMMENT RIGHT FOOT [facility] Microscopic observation Gram stain Nom (Unsp spec) FEW [facility] Comment on above: WBC'S SEEN FEW GRAM POSITIVE COCCI FEW SQUAMOUS EPITHELIAL CELLS Service comment (Unsp spec) [Interp] 03/20/2023 [facility] Comment on above: FINAL SPECIMEN DESCRIPTION RIGHT FOOT [facility] Bacteria identified Cx Nom (Unsp spec) STAPHYLOCOCCUS HAEMOLYTICUS [facility] Comment on above: MODERATE GROWTH ISOLATE IS A PROBABLE SKIN CONTAMINANT Testing performed at [place] [address] COMMENT RIGHT LOWER LEG [facility] Microscopic observation Gram stain Nom (Unsp spec) NO [facility] Comment on above: WBC'S SEEN FEW SQUAMOUS EPITHELIAL CELLS NO ORGANISMS SEEN ORGANISM IDENTIFIED STAPHYLOCOCCUS HAEMOLYTICUS [facility] Service comment (Unsp spec) [Interp] 03/20/2023 [facility] Comment on above: FINAL SPECIMEN DESCRIPTION RIGHT LEG [facility] MAGNESIUMon 03-20-2023 Magnesium [Mass/Vol] 2.0 mg/dL Normal 1.6-2.3 [facility] Comment on above: Result Comment: Test ing performed at [place] [address] Performed By: #### M WILNER Go ACBC #### [place] [address] Magnesium [Mass/Vol] 2.0 mg/dL [facility] Comment on above: Testing performed at [place] [address] No Panel Informationon 03-20 [facility] RENAL FUNCTION PANELon 03-20 Albumin [Mass/Vol] 2.9 G/dl Low 3.5 - 5.0 G/dl [facility] Calcium [Mass/Vol] 7.3 mg/dL Low [facility] Chloride [Moles/Vol] 98 mmol/L [facility] Comment on above: Please note: Triglyc eride levels of 600mg/dL or higher may positively bias chloride results by approximately 2.1 mmol CO2 [Moles/Vol] 33 mmol/L High [facility] Creatinine [Mass/Vol] 0.70 mg/dL [facility] GFR COMMENT Average GFR for 50-5 9 years old = 93. [facility] Comment on above: Chronic Kidney disea se, GFR = <60. Kidney failure, GFR = <15. The GFR estimate is not adjusted for extreme body surface area or acute process, nor has it been validated for women or ethnic groups other than and . Testing performed at [place] [address] GFR/1.73 sq M.predicted among blacks MDRD (S/P/Bld) [Vol rate/Area] 150 mL/min/{1.73_m2} ml/min/1.73s q.m [facility] GFR/1.73 sq M.predicted among non-blacks MDRD (S/P/Bld) [Vol rate/Area] 124 mL/min/{1.73_m2} ml/min/1.73s q.m [facility] Glucose post fast [Mass/Vol] 120 mg/dL High [facility] Comment on above: NORMAL <100 mg/dL PREDIABETES 101-126 mg/dL DIABETES 126 mg/dL or higher Interpretation and review of laboratory results Abnormal [facility] Phosphate [Mass/Vol] 3.2 mg/dL [facility] Potassium [Moles/Vol] 4.3 mmol/L [facility] Sodium [Moles/Vol] 134 mmol/L Low [facility] Urea nitrogen [Mass/Vol] 26 mg/dL High [facility] RENAL PANEL,FASTINGon 2022 ALBUMIN 2.9 G/dl Low 3.5-5.0 [facility] Comment on above: Performed By: #### WILNER Gold ACBC #### Testing performed at [place] [id number] Calcium [Mass/Vol] 7.3 mg/dL Low 8.4-10.2 [facility] Comment on above: Performed By: #### WILNER Gold ACBC #### Testing performed at [address] [address] Chloride [Moles/Vol] 98 mmol/L Normal 98-107 [facility] Comment on above: Result Comment: Krystian boyd note: Triglyceride levels of 600mg/dL or higher may positively bias chloride results by approximately 2.1 mmol Performed By: #### WILNER Gold ACBC #### Testing performed at [address] [address] CO2 [Moles/Vol] 33 mmol/L High 22-30 [facility] Comment on above: Performed By: #### WILNER Gold ACBC #### Testing performed at [address] [address] Creatinine [Mass/Vol] 0.70 mg/dL Normal 0.7-1.2 [facility] Comment on above: Performed By: #### WILNER Gold ACBC #### [place] [address] EST. GFR, 150 ml/min/1.73sq.m [facility] Comment on above: Performed By: #### WILNER Gold ACBC #### [place] [address] EST. GFR,Non 124 ml/min/1.73sq.m [facility] Comment on above: Performed By: #### WILNER Gold ACBC #### [place] [address] GFR Information Average GFR for 50-5 9 years old = 93. Normal [facility] Comment on above: Result Comment: Phlebotomist Prn kaveh Kidney disease, GFR = <60. Kidney failure, GFR = <15. The GFR estimate is not adjusted for extreme body surface area or acute process, nor has it been validated for women or ethnic groups other than and . Testing performed at [place] [address] Performed By: #### WILNER Gold ACBC #### [place] [address] Glucose [Mass/Vol] 120 mg/dL High 70-100 [facility] Comment on above: Result Comment: NORMAL <100 mg/dL PREDIABETES 101-126 mg/dL DIABETES 126 mg/dL or higher Performed By: #### WILNER Gold ACBC #### [place] [address] PHOSPHOROUS 3.2 MG/DL Normal 2.5-4.5 [facility] Comment on above: Performed By: #### WILNER Gold ACBC #### [place] [address] Potassium [Moles/Vol] 4.3 mmol/L Normal 3.5-5.1 [facility] Comment on above: Performed By: #### WILNER Gold ACBC #### Testing performed at [facility] [address] [place] [address] Sodium [Moles/Vol] 134 mmol/L Low 137-145 [facility] Comment on above: Performed By: #### WILNER Gold ACBC #### Testing performed at [facility] [address] [place] [address] Urea nitrogen [Mass/Vol] 26 mg/dL High 7-20 [facility] Comment on above: Performed By: #### WILNER Gold ACBC #### [place] [address] WOUND CULTUREon 03-20-2023 WOUND CULTURE SPECIMEN DESCRIPTION [...] * * Result Note: Testing performed at [place] [address] * REPORT STATUS 03/20/2023 * Result Note: FINAL * ORGANISM STAPHYLOCOCCUS HAEMOLYTICUS * Result Note: STAPHYLOCOCCUS HAEMOLYTICUS * METHOD ILV CLINDAMYCIN >=8 RESISTANT ERYTHROMYCIN >=8 RESISTANT GENTAMICIN >=16 RESISTANT PENICILLIN G >=0.5 RESISTANT RIFAMPIN <=0.5 SUSCEPTIBLE TETRACYCLINE >=16 RESISTANT TRIMETH-SULFA >=320 RESISTANT VANCOMYCIN 2 SUSCEPTIBLE LEVOFLOXACIN >=8 RESISTANT OXACILLIN >=4 RESISTANT LINEZOLID 2 SUSCEPTIBLE INDUCIBLE CLINDAMYCIN RESISTANCE NEGATIVE Normal [facility] Comment on above: Performed By: #### TILA Gold RENF, LIVR #### [place] [address] CBCon 03-19-2023 Basophils/100 WBC (Bld) 1 % Normal 0.0-2.0 [facility] Comment on above: Result Comment: WENCESLAO ECTED ON 03/19 AT 0728: PREVIOUSLY REPORTED 0.9 Performed By: #### R ENCathy ACBC, MG #### [place] [address] Eosinophils/100 WBC (Bld) 12 % High 0.0-11.0 [facility] Comment on above: Result Comment: WENCESLAO ECTED ON 03/19 AT 0728: PREVIOUSLY REPORTED 12.2 Performed By: #### R ENF ACBC, MG #### [place] [address] Lymphocytes/100 WBC (Bld) 31 % Normal 20.0-55.0 [facility] Comment on above: Result Comment: WENCESLAO ECTED ON 03/19 AT 0728: PREVIOUSLY REPORTED 31.2 Performed By: #### R ENF ACBC, MG #### [place] [address] Monocytes/100 WBC (Bld) 11 % High 0.0-10.0 [facility] Comment on above: Result Comment: WENCESLAO ECTED ON 03/19 AT 0728: PREVIOUSLY REPORTED 10.9 Performed By: #### R LEIDA SANCHEZBC, MG #### [place] [address] Neutrophils/100 WBC (Bld) 45 % Normal 37.0-75.0 [facility] Comment on above: Result Comment: WENCESLAO ECTED ON 03/19 AT 0728: PREVIOUSLY REPORTED 44.8 Performed By: #### R ENF ACBC, MG #### [place] [address] PLATELET COMMENT DECREASED Normal [facility] Comment on above: Result Comment: Test ing performed at [place] [address] Performed By: #### R ENF ACBC, MG #### [place] [address] RBC morphology finding Nom (Bld) 1+ Normal [facility] Comment on above: Result Comment: MICR OCYTOSIS 1+ HYPOCHROMIA Performed By: #### R ENF ACBC, MG #### [place] [address] ABSOLUTE BAS 0.0 10*3/uL Normal 0.0-0.2 [facility] Comment on above: Result Comment: Test ing performed at [place] [address] Performed By: #### R ENF ACBC, MG #### [place] [address] ABSOLUTE EOS 0.3 10*3/uL Normal 0.0-0.7 [facility] Comment on above: Performed By: #### R ENF ACBC, MG #### [place] [address] ABSOLUTE NEUTROPHIL COUNT 1.2 10*3/uL Low 1.4-6.5 [facility] Comment on above: Performed By: #### R ENCathy ACBC, MG #### [place] [address] DTYPE AUTO DIFF Normal [facility] Comment on above: Performed By: #### R ENF ACBC, MG #### [place] [address] Lymphocytes (Bld) [#/Vol] 0.8 10*3/uL Low 1.2-3.4 [facility] Comment on above: Performed By: #### R ENF ACBC, MG #### [place] [address] Monocytes (Bld) [#/Vol] 0.3 10*3/uL Normal 0.0-0.7 [facility] Comment on above: Performed By: #### R ENF ACBC, MG #### [place] [address] Erythrocyte distribution width (RBC) [Ratio] 16.1 % High 11.5-14.5 [facility] Comment on above: Performed By: #### R ENF ACBC, MG #### [place] [address] Hematocrit (Bld) [Volume fraction] 28.9 % Low 42.0-52.0 [facility] Comment on above: Performed By: #### R ENFLEIDABC, MG #### [place] [address] Hemoglobin (Bld) [Mass/Vol] 9.3 g/dL Low 14.0-18.0 [facility] Comment on above: Performed By: #### R ENF ACBC, MG #### [place] [address] MCH (RBC) [Entitic mass] 23.0 pg Low 26.0-35.0 [facility] Comment on above: Performed By: #### R ENFLEIDABC, MG #### [place] [address] MCHC (RBC) [Mass/Vol] 32.2 g/dL Normal 27.0-37.0 [facility] Comment on above: Performed By: #### R TILA SANCHEZ, MG #### [place] [address] MCV (RBC) [Entitic vol] 71.4 fL Low 80.0-100.0 [facility] Comment on above: Performed By: #### R ENFLEDIABC, MG #### [place] [address] Platelet mean volume (Bld) [Entitic vol] 8.4 fL Normal 7.4-11.0 [facility] Comment on above: Result Comment: Test ing performed at [place] [address] Performed By: #### R ENLEIDA MorganBC, MG #### [place] [address] Platelets (Bld) [#/Vol] 87 10*3/uL Low 130-400 [facility] Comment on above: Performed By: #### R ENF, ACBC, MG #### Testing performed at [address] [address] RBC (Bld) [#/Vol] 4.05 10*6/uL Normal 4.0-6.1 [facility] Comment on above: Performed By: #### R ENF, ACBC, MG #### Testing performed at [place] [id number] WBC (Bld) [#/Vol] 2.6 10*3/uL Low 3.6-11.0 [facility] Comment on above: Performed By: #### R ENF, ACBC, MG #### Testing performed at [place] [id number] CBC, EDIF, PLATELETon 2022 ABSOLUTE BASOPHIL COUNT 0.0 10*3/uL 0.0 - 0.2 10*3/uL [facility] Basophils/100 WBC (Bld) 1 % 0.0 - 2.0 % [facility] Comment on above: CORRECTED ON 03/19 A T 07: PREVIOUSLY REPORTED 0.9 Differential cell count method Nom (Bld) AUTO DIFF % [facility] Eosinophils (Bld) [#/Vol] 0.3 10*3/uL 0.0 - 0.7 10*3/uL [facility] Eosinophils/100 WBC (Bld) 12 % High 0.0 - 11.0 % [facility] Comment on above: CORRECTED ON 03/19 A T 07: PREVIOUSLY REPORTED 12.2 Erythrocyte distribution width (RBC) [Ratio] 16.1 % High 11.5 - 14.5 % [facility] Hematocrit (Bld) [Volume fraction] 28.9 % Low 42.0 - 52.0 % [facility] Hemoglobin (Bld) [Mass/Vol] 9.3 g/dL Low [facility] Interpretation and review of laboratory results Abnormal [facility] Lymphocytes (Bld) [#/Vol] 0.8 10*3/uL Low 1.2 - 3.4 10*3/uL [facility] Lymphocytes/100 WBC (Bld) 31 % 20.0 - 55.0 % [facility] Comment on above: CORRECTED ON 03/19 A T 0728: PREVIOUSLY REPORTED 31.2 MCH (RBC) [Entitic mass] 23.0 pg Low 26.0 - 35.0 PG [facility] MCHC (RBC) [Mass/Vol] 32.2 g/dL [facility] MCV (RBC) [Entitic vol] 71.4 fL Low [facility] Monocytes (Bld) [#/Vol] 0.3 10*3/uL 0.0 - 0.7 10*3/uL [facility] Monocytes/100 WBC (Bld) 11 % High 0.0 - 10.0 % [facility] Comment on above: CORRECTED ON 03/19 A T 07: PREVIOUSLY REPORTED 10.9 Morphology Julián (Bld) [Interp] 1+ [facility] Comment on above: MICROCYTOSIS 1+ HYPOCHROMIA Neutrophils (Bld) [#/Vol] 1.2 10*3/uL Low 1.4 - 6.5 10*3/uL [facility] Neutrophils/100 WBC (Bld) 45 % 37.0 - 75.0 % [facility] Comment on above: CORRECTED ON 03/19 A T 07: PREVIOUSLY REPORTED 44.8 Platelet mean volume (Bld) [Entitic vol] 8.4 fL [facility] Platelet morphology finding Nom (Bld) DECREASED [facility] Comment on above: Testing performed at [place] [address] Platelets (Bld) [#/Vol] 87 10*3/uL Low 130 - 400 10*3/uL [facility] RBC (Bld) [#/Vol] 4.05 10*6/uL 4.0 - 6.1 10*6/uL [facility] WBC (Bld) [#/Vol] 2.6 10*3/uL Low 3.6 - 11.0 10*3/uL [facility] MAGNESIUMon 03-19-2023 Magnesium [Mass/Vol] 1.9 mg/dL Normal 1.6-2.3 [facility] Comment on above: Result Comment: Test ing performed at [place], [place] [address] Performed By: #### R ENF, ACBC, MG #### Testing performed at [place] [id number] Magnesium [Mass/Vol] 1.9 mg/dL [facility] Comment on above: Testing performed at [place], [place] [address] No Panel Informationon 03-19 [facility] RENAL FUNCTION PANELon 03-19 Albumin [Mass/Vol] 2.8 G/dl Low 3.5 - 5.0 G/dl [facility] Calcium [Mass/Vol] 7.4 mg/dL Low [facility] Chloride [Moles/Vol] 99 mmol/L [facility] Comment on above: Please note: Triglyc eride levels of 600mg/dL or higher may positively bias chloride results by approximately 2.1 mmol CO2 [Moles/Vol] 33 mmol/L High [facility] Creatinine [Mass/Vol] 0.70 mg/dL [facility] GFR COMMENT Average GFR for 50-5 9 years old = 93. [facility] Comment on above: Chronic Kidney disea se, GFR = <60. Kidney failure, GFR = <15. The GFR estimate is not adjusted for extreme body surface area or acute process, nor has it been validated for women or ethnic groups other than and . Testing performed at [place], [place] [address] GFR/1.73 sq M.predicted among blacks MDRD (S/P/Bld) [Vol rate/Area] 150 mL/min/{1.73_m2} ml/min/1.73s q.m [facility] GFR/1.73 sq M.predicted among non-blacks MDRD (S/P/Bld) [Vol rate/Area] 124 mL/min/{1.73_m2} ml/min/1.73s q.m [facility] Glucose post fast [Mass/Vol] 103 mg/dL High [facility] Comment on above: NORMAL <100 mg/dL PREDIABETES 101-126 mg/dL DIABETES 126 mg/dL or higher Interpretation and review of laboratory results Abnormal [facility] Phosphate [Mass/Vol] 3.3 mg/dL [facility] Potassium [Moles/Vol] 4.1 mmol/L [facility] Sodium [Moles/Vol] 135 mmol/L Low [facility] Urea nitrogen [Mass/Vol] 25 mg/dL High [facility] RENAL PANEL,FASTINGon 2022 ALBUMIN 2.8 G/dl Low 3.5-5.0 [facility] Comment on above: Performed By: #### R ENF ACBC, MG #### [place] [address] Calcium [Mass/Vol] 7.4 mg/dL Low 8.4-10.2 [facility] Comment on above: Performed By: #### R ENF, ACBC, MG #### [place] [address] Chloride [Moles/Vol] 99 mmol/L Normal 98-107 [facility] Comment on above: Result Comment: Krystian boyd note: Triglyceride levels of 600mg/dL or higher may positively bias chloride results by approximately 2.1 mmol Performed By: #### R ENF ACBC, MG #### [place] [address] CO2 [Moles/Vol] 33 mmol/L High 22-30 [facility] Comment on above: Performed By: #### R ENF ACBC, MG #### [place] [address] Creatinine [Mass/Vol] 0.70 mg/dL Normal 0.7-1.2 [facility] Comment on above: Performed By: #### R ENF ACBC, MG #### Testing performed at [place] [id number] EST. GFR, 150 ml/min/1.73sq.m [facility] Comment on above: Performed By: #### R ENF, ACBC, MG #### [place] [address] EST. GFR,Non 124 ml/min/1.73sq.m [facility] Comment on above: Performed By: #### R ENF, ACBC, MG #### Testing performed at [facility] [address] [place] [address] GFR Information Average GFR for 50-5 9 years old = 93. Normal [facility] Comment on above: Result Comment: Phlebotomist Prn kaveh Kidney disease, GFR = <60. Kidney failure, GFR = <15. The GFR estimate is not adjusted for extreme body surface area or acute process, nor has it been validated for women or ethnic groups other than and . Testing performed at [place] [address] Performed By: #### R ENLEIDA MorganBC, MG #### [place] [address] Glucose [Mass/Vol] 103 mg/dL High 70-100 [facility] Comment on above: Result Comment: NORMAL <100 mg/dL PREDIABETES 101-126 mg/dL DIABETES 126 mg/dL or higher Performed By: #### R ENLEIDA MorganBC, MG #### [place] [address] PHOSPHOROUS 3.3 MG/DL Normal 2.5-4.5 [facility] Comment on above: Performed By: #### R ENFLEIDABC, MG #### [place] [address] Potassium [Moles/Vol] 4.1 mmol/L Normal 3.5-5.1 [facility] Comment on above: Performed By: #### R ENFLEIDABC, MG #### [place] [address] Sodium [Moles/Vol] 135 mmol/L Low 137-145 [facility] Comment on above: Performed By: #### R ENF ACBC, MG #### [place] [address] Urea nitrogen [Mass/Vol] 25 mg/dL High 7-20 [facility] Comment on above: Performed By: #### R ENF ACBC, MG #### Testing performed at [place] [id number] CBCon 03-18-2023 Basophils/100 WBC (Bld) 1 % Normal 0.0-2.0 [facility] Comment on above: Performed By: #### M G, ACBC, RENF, LIVR #### [place] [address] DTYPE AUTO DIFF Normal [facility] Comment on above: Performed By: #### M G, ACBC, RENF, LIVR #### [place] [address] Eosinophils/100 WBC (Bld) 10 % Normal 0.0-11.0 [facility] Comment on above: Performed By: #### M G, ACBC, RENF, LIVR #### [place] [address] Lymphocytes/100 WBC (Bld) 27 % Normal 20.0-55.0 [facility] Comment on above: Performed By: #### M G, ACBC, RENF, LIVR #### [place] [address] Monocytes/100 WBC (Bld) 10 % Normal 0.0-10.0 [facility] Comment on above: Performed By: #### Micheal Go, ACBC, RENF, LIVR #### [place] [address] Neutrophils/100 WBC (Bld) 52 % Normal 37.0-75.0 [facility] Comment on above: Performed By: #### Micheal G, ACBC, RENF, LIVR #### [place] [address] PLATELET COMMENT DECREASED Normal [facility] Comment on above: Result Comment: Test ing performed at [place] [address] Performed By: #### M G, ACBC, RENF, LIVR #### [place] [address] RBC morphology finding Nom (Bld) 1+ Normal [facility] Comment on above: Result Comment: MICR OCYTOSIS 1+ TARGET CELLS Performed By: #### M G, ACBC, RENF, LIVR #### [place] [address] Erythrocyte distribution width (RBC) [Ratio] 16.4 % High 11.5-14.5 [facility] Comment on above: Performed By: #### TILA Gold RENF, LIVR #### [place] [address] Hematocrit (Bld) [Volume fraction] 30.5 % Low 42.0-52.0 [facility] Comment on above: Performed By: #### Micheal Go, WILNER ADORNO, LIVR #### [place] [address] Hemoglobin (Bld) [Mass/Vol] 9.9 g/dL Low 14.0-18.0 [facility] Comment on above: Performed By: #### Micheal Go, WILNER ADORNO, LIVR #### [place] [address] MCH (RBC) [Entitic mass] 23.0 pg Low 26.0-35.0 [facility] Comment on above: Performed By: #### Micheal Go, WILNER ADORNO, LIVR #### [place] [address] MCHC (RBC) [Mass/Vol] 32.4 g/dL Normal 27.0-37.0 [facility] Comment on above: Performed By: #### Micheal Go, WILNER ADORNO, LIVR #### [place] [address] MCV (RBC) [Entitic vol] 71.1 fL Low 80.0-100.0 [facility] Comment on above: Performed By: #### TILA Gold RENF, LIVR #### [place] [address] Platelet mean volume (Bld) [Entitic vol] 8.3 fL Normal 7.4-11.0 [facility] Comment on above: Result Comment: Test ing performed at [place] [address] Performed By: #### Micheal Go, ACMASOOD, RENF, LIVR #### [place] [address] Platelets (Bld) [#/Vol] 81 10*3/uL Low 130-400 [facility] Comment on above: Performed By: #### Micheal Go, ACBC, RENF, LIVR #### [place] [address] RBC (Bld) [#/Vol] 4.29 10*6/uL Normal 4.0-6.1 [facility] Comment on above: Performed By: #### Micheal Go, TILA, WILNER, LIVR #### [place] [address] WBC (Bld) [#/Vol] 2.5 10*3/uL Low 3.6-11.0 [facility] Comment on above: Performed By: #### Micheal Go, TILA, SANDRAF, LIVR #### [place] [address] CBC, EDIF, PLATELETon 2022 Basophils/100 WBC (Bld) 1 % 0.0 - 2.0 % [facility] Differential cell count method Nom (Bld) AUTO DIFF % [facility] Eosinophils/100 WBC (Bld) 10 % 0.0 - 11.0 % [facility] Erythrocyte distribution width (RBC) [Ratio] 16.4 % High 11.5 - 14.5 % [facility] Hematocrit (Bld) [Volume fraction] 30.5 % Low 42.0 - 52.0 % [facility] Hemoglobin (Bld) [Mass/Vol] 9.9 g/dL Low [facility] Interpretation and review of laboratory results Abnormal [facility] Lymphocytes/100 WBC (Bld) 27 % 20.0 - 55.0 % [facility] MCH (RBC) [Entitic mass] 23.0 pg Low 26.0 - 35.0 PG [facility] MCHC (RBC) [Mass/Vol] 32.4 g/dL [facility] MCV (RBC) [Entitic vol] 71.1 fL Low [facility] Monocytes/100 WBC (Bld) 10 % 0.0 - 10.0 % [facility] Morphology Julián (Bld) [Interp] 1+ [facility] Comment on above: MICROCYTOSIS 1+ TARGET CELLS Neutrophils/100 WBC (Bld) 52 % 37.0 - 75.0 % [facility] Platelet mean volume (Bld) [Entitic vol] 8.3 fL [facility] Platelet morphology finding Nom (Bld) DECREASED [facility] Comment on above: Testing performed at [place] [address] Platelets (Bld) [#/Vol] 81 10*3/uL Low 130 - 400 10*3/uL [facility] RBC (Bld) [#/Vol] 4.29 10*6/uL 4.0 - 6.1 10*6/uL [facility] WBC (Bld) [#/Vol] 2.5 10*3/uL Low 3.6 - 11.0 10*3/uL [facility] MAGNESIUMon 03-18-2023 Magnesium [Mass/Vol] 1.8 mg/dL Normal 1.6-2.3 [facility] Comment on above: Result Comment: Test ing performed at [place] [address] Performed By: #### M Abbi, TILA, WILNER, LIVR #### [place] [address] Magnesium [Mass/Vol] 1.8 mg/dL [facility] Comment on above: Testing performed at [place] [address] No Panel Informationon 03-18 [facility] RENAL FUNCTION PANELon 03-18 Albumin [Mass/Vol] 2.9 G/dl Low 3.5 - 5.0 G/dl [facility] Calcium [Mass/Vol] 7.4 mg/dL Low [facility] Chloride [Moles/Vol] 97 mmol/L Low [facility] Comment on above: Please note: Triglyc eride levels of 600mg/dL or higher may positively bias chloride results by approximately 2.1 mmol CO2 [Moles/Vol] 31 mmol/L High [facility] Creatinine [Mass/Vol] 0.70 mg/dL [facility] GFR COMMENT Average GFR for 50-5 9 years old = 93. [facility] Comment on above: Chronic Kidney disea se, GFR = <60. Kidney failure, GFR = <15. The GFR estimate is not adjusted for extreme body surface area or acute process, nor has it been validated for women or ethnic groups other than and . Testing performed at [place], [place] [address] GFR/1.73 sq M.predicted among blacks MDRD (S/P/Bld) [Vol rate/Area] 150 mL/min/{1.73_m2} ml/min/1.73s q.m [facility] GFR/1.73 sq M.predicted among non-blacks MDRD (S/P/Bld) [Vol rate/Area] 124 mL/min/{1.73_m2} ml/min/1.73s q.m [facility] Glucose post fast [Mass/Vol] 97 mg/dL [facility] Comment on above: NORMAL <100 mg/dL PREDIABETES 101-126 mg/dL DIABETES 126 mg/dL or higher Interpretation and review of laboratory results Abnormal [facility] Phosphate [Mass/Vol] 4.0 mg/dL [facility] Potassium [Moles/Vol] 4.0 mmol/L [facility] Sodium [Moles/Vol] 134 mmol/L Low [facility] Urea nitrogen [Mass/Vol] 22 mg/dL High [facility] RENAL PANEL,FASTINGon 2022 ALBUMIN 2.9 G/dl Low 3.5-5.0 [facility] Comment on above: Performed By: #### Micheal Go, ACBC, RENF, LIVR #### Testing performed at [address] [address] Calcium [Mass/Vol] 7.4 mg/dL Low 8.4-10.2 [facility] Comment on above: Performed By: #### Micheal Go, ACBC, RENF, LIVR #### Testing performed at [address] [address] Chloride [Moles/Vol] 97 mmol/L Low 98-107 [facility] Comment on above: Result Comment: Plea se note: Triglyceride levels of 600mg/dL or higher may positively bias chloride results by approximately 2.1 mmol Performed By: #### Micheal Go, WILNER ADORNO, LIVR #### [place] [address] CO2 [Moles/Vol] 31 mmol/L High 22-30 [facility] Comment on above: Performed By: #### Micheal Go, TILA, SANDRAF, LIVR #### [place] [address] Creatinine [Mass/Vol] 0.70 mg/dL Normal 0.7-1.2 [facility] Comment on above: Performed By: #### Micheal Go, TILA, WILNER, LIVR #### [place] [address] EST. GFR, 150 ml/min/1.73sq.m [facility] Comment on above: Performed By: #### Micheal Go, TILA, SANDRAF, LIVR #### [place] [address] EST. GFR,Non 124 ml/min/1.73sq.m [facility] Comment on above: Performed By: #### Micheal Go, TILA, RENF, LIVR #### [place] [address] GFR Information Average GFR for 50-5 9 years old = 93. Normal [facility] Comment on above: Result Comment: Phlebotomist Prn kaveh Kidney disease, GFR = <60. Kidney failure, GFR = <15. The GFR estimate is not adjusted for extreme body surface area or acute process, nor has it been validated for women or ethnic groups other than and . Testing performed at [place] [address] Performed By: #### Micheal Go, TILA, RENF, LIVR #### [place] [address] Glucose [Mass/Vol] 97 mg/dL Normal 70-100 [facility] Comment on above: Result Comment: NORMAL <100 mg/dL PREDIABETES 101-126 mg/dL DIABETES 126 mg/dL or higher Performed By: #### Micheal Go, TILA, WILNER, LIVR #### [place] [address] PHOSPHOROUS 4.0 MG/DL Normal 2.5-4.5 [facility] Comment on above: Performed By: #### Micheal Go, TILA, WILNER, LIVR #### Testing performed at [place] [id number] Potassium [Moles/Vol] 4.0 mmol/L Normal 3.5-5.1 [facility] Comment on above: Performed By: #### Micheal Go, TILA, WILNER, LIVR #### [place] [address] Sodium [Moles/Vol] 134 mmol/L Low 137-145 [facility] Comment on above: Performed By: #### Micheal Go, TILA, WILNER, LIVR #### Testing performed at [place] [id number] Urea nitrogen [Mass/Vol] 22 mg/dL High 7-20 [facility] Comment on above: Performed By: #### Micheal Go, TILA, SANDRAF, LIVR #### Testing performed at [address] [address] BLOOD CULTUREon 03-17-2023 Bacteria identified Cx Nom (Bld) SPECIMEN DESCRIPTION PERIPHERAL BLOOD DRAW SPECIAL REQUESTS LAC CULTURE NO GROWTH 5 DAYS * Result Note: Testing performed at [place] [address] * REPORT STATUS 03/22/2023 * Result Note: FINAL * Normal [facility] Comment on above: Performed By: #### Micheal Go, TILA, RENF, LIVR #### [place] [address] Bacteria identified Cx Nom (Bld) SPECIMEN DESCRIPTION PERIPHERAL BLOOD DRAW SPECIAL REQUESTS LEFT FOREARM CULTURE NO GROWTH 5 DAYS * Result Note: Testing performed at [place] [address] * REPORT STATUS 03/22/2023 * Result Note: FINAL * Normal [facility] Comment on above: Performed By: #### Micheal Go, ACBC, RENF, LIVR #### [place] [address] CBCon 03-17-2023 ABSOLUTE BAS 0.0 10*3/uL Normal 0.0-0.2 [facility] Comment on above: Result Comment: Test ing performed at [place] [address] Performed By: #### Micheal Go, ACBC, RENF, LIVR #### [place] [address] ABSOLUTE EOS 0.2 10*3/uL Normal 0.0-0.7 [facility] Comment on above: Performed By: #### Micheal Go, ACBC, RENF, LIVR #### [place] [address] ABSOLUTE NEUTROPHIL COUNT 1.1 10*3/uL Low 1.4-6.5 [facility] Comment on above: Performed By: #### Micheal Go, ACBC, RENF, LIVR #### [place] [address] Basophils/100 WBC (Bld) 0.8 % Normal 0.0-2.0 [facility] Comment on above: Performed By: #### Micheal Go, ACBC, RENF, LIVR #### [place] [address] DTYPE AUTO DIFF Normal [facility] Comment on above: Performed By: #### Micheal Go, ACBC, RENF, LIVR #### [place] [address] Eosinophils/100 WBC (Bld) 10.6 % Normal 0.0-11.0 [facility] Comment on above: Performed By: #### Micheal Go, ACBC, RENF, LIVR #### [place] [address] Lymphocytes (Bld) [#/Vol] 0.7 10*3/uL Low 1.2-3.4 [facility] Comment on above: Performed By: #### Micheal Go, ACBC, RENF, LIVR #### Testing performed at [address] [address] Lymphocytes/100 WBC (Bld) 31.6 % Normal 20.0-55.0 [facility] Comment on above: Performed By: #### Micheal Go, ACBC, RENF, LIVR #### Testing performed at [place] [id number] Monocytes (Bld) [#/Vol] 0.2 10*3/uL Normal 0.0-0.7 [facility] Comment on above: Performed By: #### Micheal Go, ACBC, RENF, LIVR #### Testing performed at [place] [id number] Monocytes/100 WBC (Bld) 8.8 % Normal 0.0-10.0 [facility] Comment on above: Performed By: #### Micheal Go, ACBC, RENF, LIVR #### Testing performed at [place] [id number] Neutrophils/100 WBC (Bld) 48.2 % Normal 37.0-75.0 [facility] Comment on above: Performed By: #### Micheal Go, ACBC, RENF, LIVR #### Testing performed at [place] [id number] Erythrocyte distribution width (RBC) [Ratio] 16.1 % High 11.5-14.5 [facility] Comment on above: Performed By: #### Micheal Go, ACBC, RENF, LIVR #### Testing performed at [place] [id number] Hematocrit (Bld) [Volume fraction] 31.4 % Low 42.0-52.0 [facility] Comment on above: Performed By: #### Micheal Go, ACBC, RENF, LIVR #### Testing performed at [place] [id number] Hemoglobin (Bld) [Mass/Vol] 10.0 g/dL Low 14.0-18.0 [facility] Comment on above: Performed By: #### Micheal Go, LEIDABC, SANDRAF, LIVR #### [place] [address] MCH (RBC) [Entitic mass] 22.7 pg Low 26.0-35.0 [facility] Comment on above: Performed By: #### Micheal Go, LEIDABC, SANDRAF, LIVR #### [place] [address] MCHC (RBC) [Mass/Vol] 32.0 g/dL Normal 27.0-37.0 [facility] Comment on above: Performed By: #### Micheal Go, TILA, WILNER, LIVR #### [place] [address] MCV (RBC) [Entitic vol] 71.1 fL Low 80.0-100.0 [facility] Comment on above: Performed By: #### Micheal Go, TILA, RENF, LIVR #### [place] [address] Platelet mean volume (Bld) [Entitic vol] 7.7 fL Normal 7.4-11.0 [facility] Comment on above: Result Comment: Test ing performed at [place] [address] Performed By: #### Micheal Go, TILA, SANDRAF, LIVR #### [place] [address] Platelets (Bld) [#/Vol] 91 10*3/uL Low 130-400 [facility] Comment on above: Performed By: #### Micheal Go, LEIDABC, RENF, LIVR #### [place] [address] RBC (Bld) [#/Vol] 4.41 10*6/uL Normal 4.0-6.1 [facility] Comment on above: Performed By: #### Micheal Go, ACBC, RENF, LIVR #### Testing performed at [address] [place] [address] WBC (Bld) [#/Vol] 2.2 10*3/uL Low 3.6-11.0 [facility] Comment on above: Performed By: #### M Abbi, TILA, WILNER, PERI #### Testing performed at [facility] [address] [place] [address] CBC, EDIF, PLATELETon 2022 ABSOLUTE BASOPHIL COUNT 0.0 10*3/uL 0.0 - 0.2 10*3/uL [facility] Comment on above: Testing performed at [place], [place] [address] Basophils/100 WBC (Bld) 0.8 % 0.0 - 2.0 % [facility] Differential cell count method Nom (Bld) AUTO DIFF % [facility] Eosinophils (Bld) [#/Vol] 0.2 10*3/uL 0.0 - 0.7 10*3/uL [facility] Eosinophils/100 WBC (Bld) 10.6 % 0.0 - 11.0 % [facility] Erythrocyte distribution width (RBC) [Ratio] 16.1 % High 11.5 - 14.5 % [facility] Hematocrit (Bld) [Volume fraction] 31.4 % Low 42.0 - 52.0 % [facility] Hemoglobin (Bld) [Mass/Vol] 10.0 g/dL Low [facility] Interpretation and review of laboratory results Abnormal [facility] Lymphocytes (Bld) [#/Vol] 0.7 10*3/uL Low 1.2 - 3.4 10*3/uL [facility] Lymphocytes/100 WBC (Bld) 31.6 % 20.0 - 55.0 % [facility] MCH (RBC) [Entitic mass] 22.7 pg Low 26.0 - 35.0 PG [facility] MCHC (RBC) [Mass/Vol] 32.0 g/dL [facility] MCV (RBC) [Entitic vol] 71.1 fL Low [facility] Monocytes (Bld) [#/Vol] 0.2 10*3/uL 0.0 - 0.7 10*3/uL [facility] Monocytes/100 WBC (Bld) 8.8 % 0.0 - 10.0 % [facility] Neutrophils (Bld) [#/Vol] 1.1 10*3/uL Low 1.4 - 6.5 10*3/uL [facility] Neutrophils/100 WBC (Bld) 48.2 % 37.0 - 75.0 % [facility] Platelet mean volume (Bld) [Entitic vol] 7.7 fL [facility] Platelets (Bld) [#/Vol] 91 10*3/uL Low 130 - 400 10*3/uL [facility] RBC (Bld) [#/Vol] 4.41 10*6/uL 4.0 - 6.1 10*6/uL [facility] WBC (Bld) [#/Vol] 2.2 10*3/uL Low 3.6 - 11.0 10*3/uL [facility] MAGNESIUMon 03-17-2023 Magnesium [Mass/Vol] 1.7 mg/dL Normal 1.6-2.3 [facility] Comment on above: Result Comment: Test ing performed at [place] [address] Performed By: #### TILA Gold RENF, LIVR #### [place] [address] Magnesium [Mass/Vol] 1.7 mg/dL [facility] Comment on above: Testing performed at [place] [address] MRSA SCREENon 03-17-2023 MRSA DNA HERMAN+probe Ql (Unsp spec) Negative Normal NEGATIVE [facility] Comment on above: Performed By: #### TILA Gold RENF, LIVR #### [place] [address] STAPH AUREUS SCREEN Negative Normal NEGATIVE [facility] Comment on above: Result Comment: TEST ING PERFORMED BY PCR Testing performed at [place] [address] Performed By: #### TILA Gold RENF, LIVR #### [place] [address] No Panel Informationon 03-17 [facility] PROCALCITONINon 03-17-2023 PROCALCITONIN 0.06 ng/mL Normal 0.00-0.25 [facility] Comment on above: Result Comment: PCT Interpretation Less than 0.10 ng/mL, antibiotic therapy strongly discouraged. 0.10-0.25 ng/mL, antibiotic therapy discouraged. 0.25-0.50 ng/mL, antibiotic therapy encouraged. Greater than 0.50 ng/mL, antibiotic therapy strongly encouraged. Testing performed at [place] [address] Performed By: #### TILA Gold RENF, LIVR #### [place] [address] PROCALCITONIN 0.06 ng/mL 0.00 - 0.25 ng/mL [facility] Comment on above: PCT Interpretation Less than 0.10 ng/mL, antibiotic therapy strongly discouraged. 0.10-0.25 ng/mL, antibiotic therapy discouraged. 0.25-0.50 ng/mL, antibiotic therapy encouraged. Greater than 0.50 ng/mL, antibiotic therapy strongly encouraged. Testing performed at [address] PROTIMEon 03-17-2023 INR Coag (PPP) [Relative time] 1.27 {INR} High 0.85-1.10 [facility] Comment on above: Result Comment: 2.0-3.0 THERAPEUTIC RANGE 2.5-3.5 MECHANICAL VALVE RANGE Testing performed at [place] [address] Performed By: #### TILA Gold RENF, LIVR #### [place] [address] PT Coag (PPP) [Time] 16.0 s High 11.8-14.4 [facility] Comment on above: Performed By: #### TILA Gold RENF, LIVR #### [place] [address] PROTIME-INRon 03-17-2023 INR Coag (PPP) [Relative time] 1.27 {INR} High 0.85 - 1.10 [facility] Comment on above: 2.0-3.0 THERAPEUTIC RANGE 2.5-3.5 MECHANICAL VALVE RANGE Testing performed at [place] [address] Interpretation and review of laboratory results Abnormal [facility] PT Coag (PPP) [Time] 16.0 s [facility] RAPID TOX SCREEN,URINEon AMPHETAMINE Negative Normal NEGATIVE [facility] Comment on above: Result Comment: <500 ng/ml CUTOFF Performed By: #### M G, ACBC, RENF, LIVR #### [place] [address] BARBITURATES Negative Normal NEGATIVE [facility] Comment on above: Result Comment: <200 ng/ml CUTOFF Performed By: #### M G, ACBC, RENF, LIVR #### [place] [address] BENZODIAZEPINES Positive Abnormal NEGATIVE [facility] Comment on above: Result Comment: <150 ng/ml CUTOFF *Unconfirmed Screening Result* Unconfirmed screening results are to be used only for medical treatment purposes. Performed By: #### M G, ACBC, RENF, LIVR #### [place] [address] BUPRENORPHINE Positive Abnormal NEGATIVE [facility] Comment on above: Result Comment: <10 ng/ml CUTOFF *Unconfirmed Screening Result* Unconfirmed screening results are to be used only for medical treatment purposes. Performed By: #### M G, ACBC, RENF, LIVR #### [place] [address] CANNABINOIDS Negative Normal NEGATIVE [facility] Comment on above: Result Comment: <50 ng/ml CUTOFF Performed By: #### M G, ACBC, RENF, LIVR #### [place] [address] COCAINE Positive Abnormal NEGATIVE [facility] Comment on above: Result Comment: <150 ng/ml CUTOFF *Unconfirmed Screening Result* Unconfirmed screening results are to be used only for medical treatment purposes. Performed By: #### M G, ACBC, RENF, LIVR #### [place] [address] FENTANYL Negative Normal NEGATIVE [facility] Comment on above: Result Comment: 20 n g/mL CUTOFF *Unconfirmed Screening Result* Unconfirmed screening results are to be used only for medical treatment purposes. This test has not been approved by the FDA. Testing performed at [place] [address] Performed By: #### M G, ACBC, RENF, LIVR #### [place] [address] METHADONE Negative Normal NEGATIVE [facility] Comment on above: Result Comment: <200 ng/ml CUTOFF Performed By: #### M G, ACBC, RENF, LIVR #### [place] [address] METHAMPHETAMINE Negative Normal NEGATIVE [facility] Comment on above: Result Comment: <500 ng/ml CUTOFF Performed By: #### M G, ACBC, RENF, LIVR #### [place] [address] OPIATES Negative Normal NEGATIVE [facility] Comment on above: Result Comment: <100 ng/ml CUTOFF Performed By: #### M G, ACBC, RENF, LIVR #### [place] [address] OXYCODONE Negative Normal NEGATIVE [facility] Comment on above: Result Comment: <100 ng/ml CUTOFF Performed By: #### M G, ACBC, RENF, LIVR #### [place] [address] PHENCYCLIDINE Negative Normal NEGATIVE [facility] Comment on above: Result Comment: <25 ng/ml CUTOFF Performed By: #### M G, ACBC, RENF, LIVR #### [place] [address] PROPOXYPHENE Negative Normal NEGATIVE [facility] Comment on above: Result Comment: <300 ng/ml CUTOFF Performed By: #### M G, ACBC, RENF, LIVR #### Testing performed at [address] [place] [address] TRICYCLIC ANTIDEPRESSANTS Negative Normal NEGATIVE [facility] Comment on above: Result Comment: <300 ng/ml CUTOFF Performed By: #### M Abbi, TILA, WILNER, ELIDAR #### Testing performed at [facility] [address] [place] [address] RENAL FUNCTION PANELon 03-17 Albumin [Mass/Vol] 3.0 G/dl Low 3.5 - 5.0 G/dl [facility] Calcium [Mass/Vol] 7.9 mg/dL Low [facility] Chloride [Moles/Vol] 96 mmol/L Low [facility] Comment on above: Please note: Triglyc eride levels of 600mg/dL or higher may positively bias chloride results by approximately 2.1 mmol CO2 [Moles/Vol] 32 mmol/L High [facility] Creatinine [Mass/Vol] 0.50 mg/dL Low [facility] GFR COMMENT Average GFR for 50-5 9 years old = 93. [facility] Comment on above: Chronic Kidney disea se, GFR = <60. Kidney failure, GFR = <15. The GFR estimate is not adjusted for extreme body surface area or acute process, nor has it been validated for women or ethnic groups other than and . Testing performed at [place], [place] [address] GFR/1.73 sq M.predicted among blacks MDRD (S/P/Bld) [Vol rate/Area] 221 mL/min/{1.73_m2} ml/min/1.73s q.m [facility] GFR/1.73 sq M.predicted among non-blacks MDRD (S/P/Bld) [Vol rate/Area] 183 mL/min/{1.73_m2} ml/min/1.73s q.m [facility] Glucose post fast [Mass/Vol] 90 mg/dL [facility] Comment on above: NORMAL <100 mg/dL PREDIABETES 101-126 mg/dL DIABETES 126 mg/dL or higher Interpretation and review of laboratory results Abnormal [facility] Phosphate [Mass/Vol] 4.4 mg/dL [facility] Potassium [Moles/Vol] 3.6 mmol/L [facility] Sodium [Moles/Vol] 133 mmol/L Low [facility] Urea nitrogen [Mass/Vol] 16 mg/dL [facility] RENAL PANEL,FASTINGon 2022 ALBUMIN 3.0 G/dl Low 3.5-5.0 [facility] Comment on above: Performed By: #### Micheal Go, ACMASOOD, RENF, LIVR #### Testing performed at [address] [address] Calcium [Mass/Vol] 7.9 mg/dL Low 8.4-10.2 [facility] Comment on above: Performed By: #### Micheal Go, ACMASOOD, RENF, LIVR #### Testing performed at [place] [id number] Chloride [Moles/Vol] 96 mmol/L Low 98-107 [facility] Comment on above: Result Comment: Krystian boyd note: Triglyceride levels of 600mg/dL or higher may positively bias chloride results by approximately 2.1 mmol Performed By: #### TILA Gold, RENF, LIVR #### Testing performed at [address] [address] CO2 [Moles/Vol] 32 mmol/L High 22-30 [facility] Comment on above: Performed By: #### Micheal Go, TILA, RENF, LIVR #### Testing performed at [address] [address] Creatinine [Mass/Vol] 0.50 mg/dL Low 0.7-1.2 [facility] Comment on above: Performed By: #### Micheal Go, ACBC, RENF, LIVR #### Testing performed at [address] [address] EST. GFR, 221 ml/min/1.73sq.m [facility] Comment on above: Performed By: #### Micheal Go, ACBC, RENF, LIVR #### Testing performed at [address] [address] EST. GFR,Non 183 ml/min/1.73sq.m [facility] Comment on above: Performed By: #### M G, ACBC, RENF, LIVR #### [place] [address] GFR Information Average GFR for 50-5 9 years old = 93. Normal [facility] Comment on above: Result Comment: Phlebotomist Prn kaveh Kidney disease, GFR = <60. Kidney failure, GFR = <15. The GFR estimate is not adjusted for extreme body surface area or acute process, nor has it been validated for women or ethnic groups other than and . Testing performed at [place] [address] Performed By: #### Micheal Go, ACMASOOD, RENF, LIVR #### [place] [address] Glucose [Mass/Vol] 90 mg/dL Normal 70-100 [facility] Comment on above: Result Comment: NORMAL <100 mg/dL PREDIABETES 101-126 mg/dL DIABETES 126 mg/dL or higher Performed By: #### Micheal Go, LEIDABC, RENF, LIVR #### [place] [address] PHOSPHOROUS 4.4 MG/DL Normal 2.5-4.5 [facility] Comment on above: Performed By: #### Micheal Go, LEIDABC, RENF, LIVR #### [place] [address] Potassium [Moles/Vol] 3.6 mmol/L Normal 3.5-5.1 [facility] Comment on above: Performed By: #### Micheal Go, ACBC, RENF, LIVR #### [place] [address] Sodium [Moles/Vol] 133 mmol/L Low 137-145 [facility] Comment on above: Performed By: #### Micheal Go, ACBC, RENF, LIVR #### [place] [address] Urea nitrogen [Mass/Vol] 16 mg/dL Normal 7-20 [facility] Comment on above: Performed By: #### M G, ACBC, RENF, LIVR #### [place] [address] SCREEN: MRSA ONLY, NARES (IS OLATION SCREEN)on 03-17-2023 MRSA isol Org specific cx Ql (Nose) Negative NEGATIVE [facility] STAPHYOCOCCUS AUREUS BY PCR Negative NEGATIVE [facility] Comment on above: TESTING PERFORMED BY PCR Testing performed at [address] TOXICOLOGY DRUG SCREEN, URIN Jonathan 03-17-2023 Amphetamine (U) [Mass/Vol] Negative NEGATIVE NG/ML [facility] Comment on above: <500 ng/ml CUTOFF Barbiturates Screen Ql (U) Negative NEGATIVE NG/ML [facility] Comment on above: <200 ng/ml CUTOFF Benzodiazepines Ql (U) Positive Abnormal NEGATIVE NG/ML [facility] Comment on above: <150 ng/ml CUTOFF *Unconfirmed Screening Result* Unconfirmed screening results are to be used only for medical treatment purposes. Benzoylecgonine Ql (U) Positive Abnormal NEGATIVE NG/ML [facility] Comment on above: <150 ng/ml CUTOFF *Unconfirmed Screening Result* Unconfirmed screening results are to be used only for medical treatment purposes. Buprenorphine Ql (U) Positive Abnormal NEGATIV E NG/ML [facility] Comment on above: <10 ng/ml CUTOFF *Unconfirmed Screening Result* Unconfirmed screening results are to be used only for medical treatment purposes. Cannabinoids Screen Ql (U) Negative NEGATIVE NG/ML [facility] Comment on above: <50 ng/ml CUTOFF Fentanyl Negative NEGATIVE NG/ML [facility] Comment on above: 20 ng/mL CUTOFF *Unconfirmed Screening Result* Unconfirmed screening results are to be used only for medical treatment purposes. This test has not been approved by the FDA. Testing performed at [place] [address] Interpretation and review of laboratory results Abnormal [facility] Methadone Screen Ql (U) Negative NEGATIVE NG/ML [facility] Comment on above: <200 ng/ml CUTOFF Methamphetamine (U) [Mass/Vol] Negative NEGATIVE NG/ML [facility] Comment on above: <500 ng/ml CUTOFF Opiates Screen Ql (U) Negative NEGATIVE NG/ML [facility] Comment on above: <100 ng/ml CUTOFF oxyCODONE Ql (U) Negative NEGATIVE NG/ML [facility] Comment on above: <100 ng/ml CUTOFF Phencyclidine Screen method >25 ng/mL Ql (U) Negative NEGATIVE NG/ML [facility] Comment on above: <25 ng/ml CUTOFF Propoxyphene+Norprop oxyphene Screen Ql (U) Negative NEGATIVE NG/ML [facility] Comment on above: <300 ng/ml CUTOFF Tricyclic antidepressants Screen Ql (U) Negative NEGATIVE NG/ML [facility] Comment on above: <300 ng/ml CUTOFF [facility] WOUND CULTUREon 03-17-2023 WOUND CULTURE SPECIMEN [...] * * Result Note: Testing performed at [place] [address] * REPORT STATUS 03/20/2023 * Result Note: FINAL * Normal [facility] Comment on above: Performed By: #### M G, ACBC, RENF, LIVR #### [place] [address] B-TYPE NATRIURETIC PEPTIDE ( BRAIN)on 03-16-2023 Natriuretic peptide B (Bld) [Mass/Vol] 27 pg/mL 0 - 100 pg/mL [facility] C REACTIVE PROTEINon 023 CRP [Mass/Vol] 5.5 mg/L 0 - 10 MG/L [facility] CBC, EDIF, PLATELETon 2022 ABSOLUTE BASOPHIL COUNT 0.0 10*3/uL 0.0 - 0.2 10*3/uL [facility] Basophils/100 WBC (Bld) 0.4 % 0.0 - 2.0 % [facility] Differential cell count method Nom (Bld) AUTO DIFF % [facility] Eosinophils (Bld) [#/Vol] 0.3 10*3/uL 0.0 - 0.7 10*3/uL [facility] Eosinophils/100 WBC (Bld) 9.0 % 0.0 - 11.0 % [facility] Erythrocyte distribution width (RBC) [Ratio] 15.9 % High 11.5 - 14.5 % [facility] Hematocrit (Bld) [Volume fraction] 33.6 % Low 42.0 - 52.0 % [facility] Hemoglobin (Bld) [Mass/Vol] 10.5 g/dL Low [facility] Interpretation and review of laboratory results Abnormal [facility] Lymphocytes (Bld) [#/Vol] 0.6 10*3/uL Low 1.2 - 3.4 10*3/uL [facility] Lymphocytes/100 WBC (Bld) 16.9 % Low 20.0 - 55.0 % [facility] MCH (RBC) [Entitic mass] 22.4 pg Low 26.0 - 35.0 PG [facility] MCHC (RBC) [Mass/Vol] 31.3 g/dL [facility] MCV (RBC) [Entitic vol] 71.7 fL Low [facility] Monocytes (Bld) [#/Vol] 0.4 10*3/uL 0.0 - 0.7 10*3/uL [facility] Monocytes/100 WBC (Bld) 9.6 % 0.0 - 10.0 % [facility] Neutrophils (Bld) [#/Vol] 2.3 10*3/uL 1.4 - 6.5 10*3/uL [facility] Neutrophils/100 WBC (Bld) 64.1 % 37.0 - 75.0 % [facility] Platelet mean volume (Bld) [Entitic vol] 7.7 fL [facility] Platelets (Bld) [#/Vol] 106 10*3/uL Low 130 - 400 10*3/uL [facility] RBC (Bld) [#/Vol] 4.68 10*6/uL 4.0 - 6.1 10*6/uL [facility] WBC (Bld) [#/Vol] 3.6 10*3/uL 3.6 - 11.0 10*3/uL [facility] CKon 03-16-2023 CK [Catalytic activity/Vol] Low [facility] Interpretation and review of laboratory results Abnormal [facility] COMPREHENSIVE METABOLIC PANE Ras 03-16-2023 Albumin [Mass/Vol] 3.6 G/dl 3.5 - 5.0 G/dl [facility] [facility] Albumin/Globulin [Mass ratio] 0.8 {ratio} RATIO [facility] ALP [Catalytic activity/Vol] 53 U/L [facility] ALT [Catalytic activity/Vol] 21 U/L NINF [facility] AST [Catalytic activity/Vol] 38 U/L [facility] Bilirubin [Mass/Vol] 1.6 mg/dL High [facility] Calcium [Mass/Vol] 8.3 mg/dL Low [facility] Chloride [Moles/Vol] 96 mmol/L Low [facility] Comment on above: Please note: Triglyc eride levels of 600mg/dL or higher may positively bias chloride results by approximately 2.1 mmol CO2 [Moles/Vol] 33 mmol/L High [facility] Creatinine [Mass/Vol] 0.59 mg/dL Low [facility] GFR COMMENT Average GFR for 50-5 9 years old = 93. [facility] Comment on above: Chronic Kidney disea se, GFR = <60. Kidney failure, GFR = <15. The GFR estimate is not adjusted for extreme body surface area or acute process, nor has it been validated for women or ethnic groups other than and . GFR/1.73 sq M.predicted among blacks MDRD (S/P/Bld) [Vol rate/Area] 183 mL/min/{1.73_m2} ml/min/1.73s q.m [facility] GFR/1.73 sq M.predicted among non-blacks MDRD (S/P/Bld) [Vol rate/Area] 151 mL/min/{1.73_m2} ml/min/1.73s q.m [facility] Glucose post fast [Mass/Vol] 116 mg/dL High [facility] Comment on above: NORMAL <100 mg/dL PREDIABETES 101-126 mg/dL DIABETES 126 mg/dL or higher Interpretation and review of laboratory results Abnormal [facility] Potassium [Moles/Vol] 3.5 mmol/L [facility] Protein [Mass/Vol] 8.1 g/dL [facility] Sodium [Moles/Vol] 137 mmol/L [facility] Urea nitrogen [Mass/Vol] 15 mg/dL [facility] LACTATE, BLOODon 03-16-2023 Lactate [Moles/Vol] 1.7 mmol/L 0.7 - 2. 0 mmol/L [facility] No Panel Informationon 03-16 [facility] Portable XR Chest Views APon 03-16-2023 IMPRESSION: [...] soft tissue. IMPRESSION IMPRESSION: No acute findings. [facility] Radiology Study observation (narrative) [facility] Portable XR Chest Views APOr dered By: Jerry Zimmerman on 03-16-2023 [employer] Phone: SEDIMENTATION RATE, AUTOMATE Don 03-16-2023 ESR (Bld) [Velocity] 65 mm/h High [employer] Interpretation and review of laboratory results Abnormal [facility] TROPONIN I, HIGH SENSITIVITY on 03-16-2023 TROPONIN I, HIGH SENSITIVITY 2 pg/mL 0 - 20 pg/mL [facility] Comment on above: Indeterminant: >12 to 100 pg/mL female >20 to 100 pg/mL male Indicative of myocardial injury. Serial sampling is recommended, a change of greater than or equal to 20 pg/mL is indicative of acute coronary syndrome. [facility] US.doppler Extremity vessels - bilateralon 03-16-2023 IMPRESSION: [...] visualized venous thrombus. Right inguinal lymph node. [facility] Radiology Study observation (narrative) [facility] US.doppler Extremity vessels - bilateralOrdered By: Paulino Marcos on 03-16-2023 [facility] Work Phone: WOUND CULTUREon 03-14-2023 WOUND CULTURE SPECIMEN DESCRIPTION LEFT LEG GRAM SMEAR FEW * Result Note: WBC'S SEEN * * Result Note: FEW * * Result Note: GRAM POSITIVE COCCI * CULTURE ENTEROCOCCUS FAECALIS GROUP D * Result Note: HEAVY GROWTH * * Result Note: Testing performed at [place], [place] [address] * REPORT STATUS 03/14/2023 * Result Note: FINAL * ORGANISM ENTEROCOCCUS FAECALIS GROUP D * Result Note: ENTEROCOCCUS FAECALIS GROUP D * METHOD LIV AMPICILLIN <=2 SUSCEPTIBLE PENICILLIN G 2 SUSCEPTIBLE VANCOMYCIN 1 SUSCEPTIBLE GENTAMICIN HIGH LEVEL RESISTANT STREPTOMYCIN HIGH LEVEL SUSCEPTIBLE Normal [facility] Comment on above: Performed By: #### M G, ACBC, RENF, LIVR #### Testing performed at [facility] [address] [place] [address] SOLUBLE TRANSFERRIN RECEPTOR on 03-05-2023 SOLUBLE TRANSFERRIN RECEPTOR 27.4 High [facility] Comment on above: Result Comment: Refe rence range: 12.2 to 27.3 Unit: nmol/L PERFORMED AT [facility] Performed By: #### L STR #### Testing performed at [facility] C REACTIVE PROTEINon 023 CRP [Mass/Vol] 5.9 mg/L Normal 0-10 [facility] CBCon 03-03-2023 ABSOLUTE BAS 0.0 10*3/uL Normal 0.0-0.2 [facility] ABSOLUTE EOS 0.1 10*3/uL Normal 0.0-0.7 [facility] ABSOLUTE NEUTROPHIL COUNT 1.9 10*3/uL Normal 1.4-6.5 [facility] Basophils/100 WBC (Bld) 0.6 % Normal 0.0-2.0 [facility] DTYPE AUTO DIFF Normal [facility] Eosinophils/100 WBC (Bld) 3.9 % Normal 0.0-11.0 [facility] Lymphocytes (Bld) [#/Vol] 0.6 10*3/uL Low 1.2-3.4 [facility] Lymphocytes/100 WBC (Bld) 21.3 % Normal 20.0-55.0 [facility] Monocytes (Bld) [#/Vol] 0.2 10*3/uL Normal 0.0-0.7 [facility] Monocytes/100 WBC (Bld) 8.2 % Normal 0.0-10.0 [facility] Neutrophils/100 WBC (Bld) 66.0 % Normal 37.0-75.0 [facility] Erythrocyte distribution width (RBC) [Ratio] 16.4 % High 11.5-14.5 [facility] Hematocrit (Bld) [Volume fraction] 29.1 % Low 42.0-52.0 [facility] Hemoglobin (Bld) [Mass/Vol] 9.3 g/dL Low 14.0-18.0 [facility] MCH (RBC) [Entitic mass] 23.1 pg Low 26.0-35.0 [facility] MCHC (RBC) [Mass/Vol] 32.1 g/dL Normal 27.0-37.0 [facility] MCV (RBC) [Entitic vol] 72.1 fL Low 80.0-100.0 [facility] Platelet mean volume (Bld) [Entitic vol] 7.4 fL Normal 7.4-11.0 [facility] Platelets (Bld) [#/Vol] 96 10*3/uL Low 130-400 [facility] RBC (Bld) [#/Vol] 4.03 10*6/uL Normal 4.0-6.1 [facility] WBC (Bld) [#/Vol] 2.8 10*3/uL Low 3.6-11.0 [facility] ESRon 03-03-2023 ESR (Bld) [Velocity] 31 mm/h High 0-20 [facility] MAGNESIUMon 03-03-2023 Magnesium [Mass/Vol] 1.9 mg/dL Normal 1.6-2.3 [facility] RENAL PANEL,FASTINGon 2022 ALBUMIN 2.9 G/dl Low 3.5-5.0 [facility] Calcium [Mass/Vol] 8.0 mg/dL Low 8.4-10.2 [facility] Chloride [Moles/Vol] 113 mmol/L High 98-107 [facility] Comment on above: Result Comment: Krystian boyd note: Triglyceride levels of 600mg/dL or higher may positively bias chloride results by approximately 2.1 mmol CO2 [Moles/Vol] 25 mmol/L Normal 22-30 [facility] Creatinine [Mass/Vol] 0.50 mg/dL Low 0.7-1.2 [facility] EST. GFR, 221 ml/min/1.73sq.m Normal [facility] EST. GFR,Non 183 ml/min/1.73sq.m Normal [facility] GFR Information Average GFR for 50-5 9 years old = 93. Normal [facility] Comment on above: Result Comment: Phlebotomist Prn kaveh Kidney disease, GFR = <60. Kidney failure, GFR = <15. The GFR estimate is not adjusted for extreme body surface area or acute process, nor has it been validated for women or ethnic groups other than and . Glucose [Mass/Vol] 93 mg/dL Normal 70-100 [facility] Comment on above: Result Comment: NORMAL <100 mg/dL PREDIABETES 101-126 mg/dL DIABETES 126 mg/dL or higher PHOSPHOROUS 3.2 MG/DL Normal 2.5-4.5 [facility] Potassium [Moles/Vol] 4.3 mmol/L Normal 3.5-5.1 [facility] Sodium [Moles/Vol] 136 mmol/L Low 137-145 [facility] Urea nitrogen [Mass/Vol] 16 mg/dL Normal 7-20 [facility] VANCOMYCIN TROUGHon 03-03-20 23 VANCOMYCIN TROUGH 15.2 UG/ML Normal 15-20 [facility] WOUND CULTUREon 03-03-2023 WOUND CULTURE [...] * * Result Note: Testing performed at [place], [place] [address] * REPORT STATUS 03/03/2023 * Result Note: FINAL * ORGANISM STAPHYLOCOCCUS AUREUS * Result Note: STAPHYLOCOCCUS AUREUS * METHOD LIV OXACILLIN 0.5 SUSCEPTIBLE CLINDAMYCIN <=0.25 SUSCEPTIBLE ERYTHROMYCIN >=8 RESISTANT TETRACYCLINE <=1 SUSCEPTIBLE VANCOMYCIN <=0.5 SUSCEPTIBLE RIFAMPIN <=0.5 SUSCEPTIBLE PENICILLIN G >=0.5 RESISTANT GENTAMICIN <=0.5 SUSCEPTIBLE LEVOFLOXACIN 0.25 SUSCEPTIBLE INDUCIBLE CLINDAMYCIN RESISTANCE NEGATIVE LINEZOLID 2 SUSCEPTIBLE TRIMETH-SULFA <=10 SUSCEPTIBLE Normal [facility] Comment on above: Performed By: #### W DC ####Testing performed at [address] [address] performed at [address] [address] B12 FOLATEon 03-02-2023 Cobalamin (Vitamin B12) [Mass/Vol] 327 pg/mL Normal 239-931 [facility] Comment on above: Performed By: #### A CBC, FEPRO ####Testing performed at [address] [address] FOLATE 6.7 NG/ML Normal 2.56-20.0 [facility] Comment on above: Performed By: #### A CBC, FEPRO ####Testing performed at [address] [address] C REACTIVE PROTEINon 023 CRP [Mass/Vol] 8.5 mg/L Normal 0-10 [facility] Comment on above: Performed By: #### A CBC, FEPRO #### Testing performed at [address] [address] CBCon 03-02-2023 DTYPE MANUAL DIFF Normal [facility] Comment on above: Performed By: #### A CBC, FEPRO #### Testing performed at [address] [address] Eosinophils/100 WBC (Bld) 2 % Normal 0.0-11.0 [facility] Comment on above: Performed By: #### A CBC, FEPRO #### Testing performed at [address] [address] Lymphocytes/100 WBC (Bld) 26 % Normal 20.0-55.0 [facility] Comment on above: Performed By: #### A CBC, FEPRO #### Testing performed at [address] [address] Monocytes/100 WBC (Bld) 4 % Normal 0.0-10.0 [facility] Comment on above: Performed By: #### A CBC, FEPRO #### Testing performed at [address] [place] [address] Neutrophils/100 WBC (Bld) 68 % Normal 37.0-75.0 [facility] Comment on above: Performed By: #### A CBC, FEPRO #### Testing performed at [address] [address] PLATELET COMMENT DECREASED Normal [facility] Comment on above: Performed By: #### A CBC, FEPRO #### Testing performed at [address] [place] [address] RBC morphology finding Nom (Bld) 1+ Normal [facility] Comment on above: Result Comment: ANIS OCYTE 1+ POIKILOCYTE 1+ TARGET CELLS 1+ MICROCYTOSIS Performed By: #### A CBC, FEPRO #### Testing performed at [address] [address] Erythrocyte distribution width (RBC) [Ratio] 16.6 % High 11.5-14.5 [facility] Comment on above: Performed By: #### A CBC, FEPRO #### Testing performed at [address] [place] [address] Hematocrit (Bld) [Volume fraction] 27.6 % Low 42.0-52.0 [facility] Comment on above: Performed By: #### A CBC, FEPRO #### Testing performed at [address] [place] [address] Hemoglobin (Bld) [Mass/Vol] 8.7 g/dL Low 14.0-18.0 [facility] Comment on above: Performed By: #### A CBC, FEPRO #### Testing performed at [address] [address] MCH (RBC) [Entitic mass] 22.9 pg Low 26.0-35.0 [facility] Comment on above: Performed By: #### A CBC, FEPRO #### Testing performed at [address] [address] MCHC (RBC) [Mass/Vol] 31.7 g/dL Normal 27.0-37.0 [facility] Comment on above: Performed By: #### A CBC, FEPRO #### Testing performed at [address] [address] MCV (RBC) [Entitic vol] 72.2 fL Low 80.0-100.0 [facility] Comment on above: Performed By: #### A CBC, FEPRO #### Testing performed at [address] [address] Platelet mean volume (Bld) [Entitic vol] 8.4 fL Normal 7.4-11.0 [facility] Comment on above: Performed By: #### A CBC, FEPRO #### Testing performed at [address] [address] Platelets (Bld) [#/Vol] 93 10*3/uL Low 130-400 [facility] Comment on above: Performed By: #### A CBC, FEPRO #### Testing performed at [address] [address] RBC (Bld) [#/Vol] 3.83 10*6/uL Low 4.0-6.1 [facility] Comment on above: Performed By: #### A CBC, FEPRO #### Testing performed at [address] [address] WBC (Bld) [#/Vol] 2.0 10*3/uL Low 3.6-11.0 [facility] Comment on above: Performed By: #### A CBC, FEPRO #### Testing performed at [address] [address] ESRon 03-02-2023 ESR (Bld) [Velocity] 21 mm/h High 0-20 [facility] Comment on above: Performed By: #### A CBC, FEPRO #### Testing performed at [address] [address] FERRITINon 03-02-2023 Ferritin [Mass/Vol] 70 ng/mL Normal 17.9-464 [facility] Comment on above: Performed By: #### A CBC, FEPRO ####Testing performed at [place] [id number] HCV FIBROSUREon 03-02-2023 ALPHA 2 MACROGLOBULIN QN 204 Normal [facility] Comment on above: Result Comment: Refe rence range: 110 to 276 Unit: mg/dL Performed By: #### A CBC ####[place] [address]#### LHCVF, LHCV ####Testing performed at [facility] ALT P5P 9 [facility] Comment on above: Result Comment: Refe rence range: 0 to 55 Unit: IU/L Performed By: #### A CBC ####Testing performed at [place] [id number]#### LHCVF, LHCV ####Testing performed at [facility] APOLIPOPROTEIN A1 75 Low [facility] Comment on above: Result Comment: Refe rence range: 101 to 178 Unit: mg/dL Performed By: #### A CBC ####Testing performed at [place] [id number]#### LHCVF, LHCV ####Testing performed at [facility] Bilirubin [Mass/Vol] 0.7 mg/dL Normal [facility] Comment on above: Result Comment: Refe rence range: 0.0 to 1.2 Unit: mg/dL Performed By: #### A CBC ####[place] [address]#### LHCVF, LHCV ####Testing performed at [facility] COMMENT Comment Normal [facility] Comment on above: Result Comment: (NOT E) This test was developed and its performance characteristics determined by [facility]. It has not been cleared or approved by the Food and Drug Administration. The FDA has determined that such clearance or approval is not necessary. For questions regarding this report please contact customer service at . Performed By: #### A CBC ####[place] [address]#### LHCVF, LHCV ####Testing performed at [facility] FIBROSIS SCORE 0.64 High [facility] Comment on above: Result Comment: Refe rence range: 0.00 to 0.21 Performed By: #### A CBC ####[place] [address]#### LHCVF, LHCV ####Testing performed at [facility] FIBROSIS SCORING Comment [facility] Comment on above: Result Comment: (NOT E) [...] By: #### A CBC ####[place] [address]#### LHCVF, LHCV ####Testing performed at [facility] FIBROSIS STAGE Bridging fibrosis wi th many septa Normal [facility] Comment on above: Result Comment: Comm ent F3 Performed By: #### A CBC ####Testing performed at [address], [place] [address]#### LHCVF, LHCV ####Testing performed at [facility] Gamma glutamyl transferase [Catalytic activity/Vol] 21 U/L Normal [facility] Comment on above: Result Comment: Refe rence range: 0 to 65 Unit: IU/L Performed By: #### A CBC ####Testing performed at [address], [place] [address]#### LHCVF, LHCV ####Testing performed at [facility] HAPTOGLOBIN 42 Normal [facility] Comment on above: Result Comment: Refe rence range: 29 to 370 Unit: mg/dL Performed By: #### A CBC ####[place] [address]#### LHCVF, LHCV ####Testing performed at [facility] INTERPRETATIONS Comment Normal [facility] Comment on above: Result Comment: (NOT E) Quantitative results of 6 biochemical tests are analyzed using a computational algorithm to provide a quantitative surrogate marker (0.0-1.0) for liver fibrosis (METAVIR F0-F4) and for necroinflammatory activity (METAVIR A0-A3). Performed By: #### A CBC ####[place] [address]#### LHCVF, LHCV ####Testing performed at [facility] LIMITATIONS Comment Normal [facility] Comment on above: Result Comment: [...] By: #### A CBC ####[place] [address]#### LHCVF, LHCV ####Testing performed at [facility] METHODOLOGY Comment Normal [facility] Comment on above: Result Comment: (NOT E) The analytes tested are performed by [employer] methods. Not intended for use with other diagnostic considerations. PERFORMED AT [facility] Performed By: #### A CBC ####[place] [address]#### LHCVF, LHCV ####Testing performed at [facility] NECROINFLAMMATORY ACTIVITY GRADE No activity Normal [facility] Comment on above: Result Comment: SEE COMMENT RESULT:A0 Performed By: #### A CBC ####[place] [address]#### LHCVF, LHCV ####Testing performed at [facility] NECROINFLAMMATORY ACTIVITY SCORE 0.04 Normal [facility] Comment on above: Result Comment: Refe rence range: 0.00 to 0.17 Performed By: #### A CBC ####[place] [address]#### LHCVF, LHCV ####Testing performed at [facility] NECROINFLAMMATORY ACTIVITY SCORING Comment Normal [facility] Comment on above: Result Comment: [...] By: #### A CBC ####Testing performed at [address] [address]#### LHCVF, LHCV ####Testing performed at [facility] HIV 1,2 ABo 03-02-2023 HIV 1,2 Non-Reactive Normal NONREACTIVE [facility] Comment on above: Performed By: #### A CBC, FEPRO ####Testing performed at [address] [address] IRON PROFILEon 03-02-2023 IRON BINDING 235 UG/DL Low 250-450 [facility] Comment on above: Performed By: #### A CBC, FEPRO #### Testing performed at [address] [address] TRANSFERRIN SATURATION,CALCULATE D 32 % Normal [facility] Comment on above: Performed By: #### A CBC, FEPRO #### Testing performed at [place] [id number] Iron [Mass/Vol] 75 ug/dL Normal 49-181 [facility] Comment on above: Performed By: #### A CBC, FEPRO #### Testing performed at [address] [address] LAST DOSEon 03-02-2023 LAST DOSE 7.11.23 @1500 Normal [facility] MAGNESIUMon 03-02-2023 Magnesium [Mass/Vol] 1.8 mg/dL Normal 1.6-2.3 [facility] Comment on above: Performed By: #### A CBC, FEPRO ####Testing performed at [address] [address] RENAL PANEL,FASTINGon 2022 ALBUMIN 2.6 G/dl Low 3.5-5.0 [facility] Comment on above: Performed By: #### A CBC, FEPRO ####Testing performed at [address] [address] Calcium [Mass/Vol] 7.9 mg/dL Low 8.4-10.2 [facility] Comment on above: Performed By: #### A CBC, FEPRO ####Testing performed at [address] [address] Chloride [Moles/Vol] 114 mmol/L High 98-107 [facility] Comment on above: Result Comment: Krystian boyd note: Triglyceride levels of 600mg/dL or higher may positively bias chloride results by approximately 2.1 mmol Performed By: #### A CBC, FEPRO ####Testing performed at [address] [address] CO2 [Moles/Vol] 27 mmol/L Normal 22-30 [facility] Comment on above: Performed By: #### A CBC, FEPRO ####Testing performed at [address] [address] Creatinine [Mass/Vol] 0.50 mg/dL Low 0.7-1.2 [facility] Comment on above: Performed By: #### A CBC, FEPRO ####Testing performed at [address] [address] EST. GFR, 221 ml/min/1.73sq.m [facility] Comment on above: Performed By: #### A CBC, FEPRO ####Testing performed at [address] [address] EST. GFR,Non 183 ml/min/1.73sq.m [facility] Comment on above: Performed By: #### A CBC, FEPRO ####Testing performed at [address] [address] GFR Information Average GFR for 50-5 9 years old = 93. Normal [facility] Comment on above: Result Comment: Phlebotomist Prn kaveh Kidney disease, GFR = <60. Kidney failure, GFR = <15. The GFR estimate is not adjusted for extreme body surface area or acute process, nor has it been validated for women or ethnic groups other than and . Performed By: #### A CBC, FEPRO ####Testing performed at [address] [address] Glucose [Mass/Vol] 87 mg/dL Normal 70-100 [facility] Comment on above: Result Comment: NORMAL <100 mg/dL PREDIABETES 101-126 mg/dL DIABETES 126 mg/dL or higher Performed By: #### A CBC, FEPRO ####Testing performed at [address] [address] PHOSPHOROUS 2.9 MG/DL Normal 2.5-4.5 [facility] Comment on above: Performed By: #### A CBC, FEPRO ####Testing performed at [address] [address] Potassium [Moles/Vol] 4.1 mmol/L Normal 3.5-5.1 [facility] Comment on above: Performed By: #### A CBC, FEPRO ####Testing performed at [address] [address] Sodium [Moles/Vol] 137 mmol/L Normal 137-145 [facility] Comment on above: Performed By: #### A CBC, FEPRO ####Testing performed at [address] [address] Urea nitrogen [Mass/Vol] 13 mg/dL Normal 7-20 [facility] Comment on above: Performed By: #### A CBC, FEPRO ####Testing performed at [address] [address] RETIC COUNTon 03-02-2023 RETIC COUNT 2.21 % Normal 0.50-2.30 [facility] Comment on above: Performed By: #### A CBC, FEPRO #### Testing performed at [facility] [address] [place] [address] VANCOMYCIN RANDOMon 03-02-20 23 VANCOMYCIN RANDOM 13.4 UG/ML Normal 5.0-20 [facility] VANCOMYCIN TROUGHon 03-02-20 23 VANCOMYCIN TROUGH 22.9 UG/ML High 15-20 [facility] C REACTIVE PROTEINon 023 CRP [Mass/Vol] 13.5 mg/L High 0-10 [facility] Comment on above: Performed By: #### L STR #### Testing performed at [facility] CBCon 03-01-2023 DTYPE MANUAL DIFF Normal [facility] Comment on above: Performed By: #### L STR #### Testing performed at [facility] Eosinophils/100 WBC (Bld) 1 % Normal 0.0-11.0 [facility] Comment on above: Performed By: #### L STR #### Testing performed at [facility] Lymphocytes/100 WBC (Bld) 41 % Normal 20.0-55.0 [facility] Comment on above: Performed By: #### L STR #### Testing performed at [facility] Monocytes/100 WBC (Bld) 2 % Normal 0.0-10.0 [facility] Comment on above: Performed By: #### L STR #### Testing performed at [facility] Neutrophils/100 WBC (Bld) 56 % Normal 37.0-75.0 [facility] Comment on above: Performed By: #### L STR #### Testing performed at [facility] PLATELET COMMENT DECREASED Normal [facility] Comment on above: Performed By: #### L STR #### Testing performed at [facility] RBC morphology finding Nom (Bld) ANISOCYTE Normal [facility] Comment on above: Performed By: #### L STR #### Testing performed at [facility] Erythrocyte distribution width (RBC) [Ratio] 16.7 % High 11.5-14.5 [facility] Comment on above: Performed By: #### L STR #### Testing performed at [facility] Hematocrit (Bld) [Volume fraction] 27.4 % Low 42.0-52.0 [facility] Comment on above: Performed By: #### L STR #### Testing performed at [facility] Hemoglobin (Bld) [Mass/Vol] 8.8 g/dL Low 14.0-18.0 [facility] Comment on above: Performed By: #### L STR #### Testing performed at [facility] MCH (RBC) [Entitic mass] 23.1 pg Low 26.0-35.0 [facility] Comment on above: Performed By: #### L STR #### Testing performed at [facility] MCHC (RBC) [Mass/Vol] 32.1 g/dL Normal 27.0-37.0 [facility] Comment on above: Performed By: #### L STR #### Testing performed at [facility] MCV (RBC) [Entitic vol] 72.1 fL Low 80.0-100.0 [facility] Comment on above: Performed By: #### L STR #### Testing performed at [facility] Platelet mean volume (Bld) [Entitic vol] 7.7 fL Normal 7.4-11.0 [facility] Comment on above: Performed By: #### L STR #### Testing performed at [facility] Platelets (Bld) [#/Vol] 85 10*3/uL Low 130-400 [facility] Comment on above: Performed By: #### L STR #### Testing performed at [facility] RBC (Bld) [#/Vol] 3.81 10*6/uL Low 4.0-6.1 [facility] Comment on above: Performed By: #### L STR #### Testing performed at [facility] WBC (Bld) [#/Vol] 2.0 10*3/uL Low 3.6-11.0 [facility] Comment on above: Performed By: #### L STR #### Testing performed at [facility] ESRon 03-01-2023 ESR (Bld) [Velocity] 24 mm/h High 0-20 [facility] Comment on above: Performed By: #### L STR #### Testing performed at [facility] HCV RNA HERMAN QUAL RFX TO ABBIE Ton 03-01-2023 HCV RNA, QUANT Not detected Normal [facility] Comment on above: Result Comment: No e vidence of active HCV infection. Unit: IU/mL Performed By: #### A CBC ####[place] [address]#### LHCVF, LHCV ####Testing performed at [facility] TEST INFORMATION Comment Normal [facility] Comment on above: Result Comment: (NOT E) The quantitative range of this assay is 15 IU/mL to 100 million IU/mL. PERFORMED AT [facility] Performed By: #### A CBC ####[place] [address]#### LHCVF, LHCV ####Testing performed at [facility] LAST DOSEon 03-01-2023 LAST DOSE 7.11.23 @1500 Normal [facility] MAGNESIUMon 03-01-2023 Magnesium [Mass/Vol] 2.0 mg/dL Normal 1.6-2.3 [facility] Comment on above: Performed By: #### L STR #### Testing performed at [facility] RAPID TOX SCREEN,URINEon AMPHETAMINE Negative Normal NEGATIVE [facility] Comment on above: Result Comment: <500 ng/ml CUTOFF BARBITURATES Negative Normal NEGATIVE [facility] Comment on above: Result Comment: <200 ng/ml CUTOFF BENZODIAZEPINES Positive Abnormal NEGATIVE [facility] Comment on above: Result Comment: <150 ng/ml CUTOFF *Unconfirmed Screening Result* Unconfirmed screening results are to be used only for medical treatment purposes. BUPRENORPHINE Positive Abnormal NEGATIVE [facility] Comment on above: Result Comment: <10 ng/ml CUTOFF *Unconfirmed Screening Result* Unconfirmed screening results are to be used only for medical treatment purposes. CANNABINOIDS Negative Normal NEGATIVE [facility] Comment on above: Result Comment: <50 ng/ml CUTOFF COCAINE Positive Abnormal NEGATIVE [facility] Comment on above: Result Comment: <150 ng/ml CUTOFF *Unconfirmed Screening Result* Unconfirmed screening results are to be used only for medical treatment purposes. FENTANYL Negative Normal NEGATIVE [facility] Comment on above: Result Comment: 20 n g/mL CUTOFF *Unconfirmed Screening Result* Unconfirmed screening results are to be used only for medical treatment purposes. This test has not been approved by the FDA. METHADONE Negative Normal NEGATIVE [facility] Comment on above: Result Comment: <200 ng/ml CUTOFF METHAMPHETAMINE Negative Normal NEGATIVE [facility] Comment on above: Result Comment: <500 ng/ml CUTOFF OPIATES Positive Abnormal NEGATIVE [facility] Comment on above: Result Comment: <100 ng/ml CUTOFF *Unconfirmed Screening Result* Unconfirmed screening results are to be used only for medical treatment purposes. OXYCODONE Negative Normal NEGATIVE [facility] Comment on above: Result Comment: <100 ng/ml CUTOFF PHENCYCLIDINE Negative Normal NEGATIVE [facility] Comment on above: Result Comment: <25 ng/ml CUTOFF PROPOXYPHENE Negative Normal NEGATIVE [facility] Comment on above: Result Comment: <300 ng/ml CUTOFF TRICYCLIC ANTIDEPRESSANTS Negative Normal NEGATIVE [facility] Comment on above: Result Comment: <300 ng/ml CUTOFF RENAL PANEL,FASTINGon 2022 ALBUMIN 2.6 G/dl Low 3.5-5.0 [facility] Comment on above: Performed By: #### L STR #### Testing performed at [facility] Calcium [Mass/Vol] 7.5 mg/dL Low 8.4-10.2 [facility] Comment on above: Performed By: #### L STR #### Testing performed at [facility] Chloride [Moles/Vol] 108 mmol/L High 98-107 [facility] Comment on above: Result Comment: Krystian boyd note: Triglyceride levels of 600mg/dL or higher may positively bias chloride results by approximately 2.1 mmol Performed By: #### L STR #### Testing performed at [facility] CO2 [Moles/Vol] 25 mmol/L Normal 22-30 [facility] Comment on above: Performed By: #### L STR #### Testing performed at [facility] Creatinine [Mass/Vol] 0.49 mg/dL Low 0.7-1.2 [facility] Comment on above: Performed By: #### L STR #### Testing performed at [facility] EST. GFR, 226 ml/min/1.73sq.m [facility] Comment on above: Performed By: #### L STR #### Testing performed at [facility] EST. GFR,Non 187 ml/min/1.73sq.m [facility] Comment on above: Performed By: #### L STR #### Testing performed at [facility] GFR Information Average GFR for 50-5 9 years old = 93. Normal [facility] Comment on above: Result Comment: Phlebotomist Prn kaveh Kidney disease, GFR = <60. Kidney failure, GFR = <15. The GFR estimate is not adjusted for extreme body surface area or acute process, nor has it been validated for women or ethnic groups other than and . Performed By: #### L STR #### Testing performed at [facility] Glucose [Mass/Vol] 116 mg/dL High 70-100 [facility] Comment on above: Result Comment: NORMAL <100 mg/dL PREDIABETES 101-126 mg/dL DIABETES 126 mg/dL or higher Performed By: #### L STR #### Testing performed at [facility] PHOSPHOROUS 3.0 MG/DL Normal 2.5-4.5 [facility] Comment on above: Performed By: #### L STR #### Testing performed at [facility] Potassium [Moles/Vol] 4.1 mmol/L Normal 3.5-5.1 [facility] Comment on above: Performed By: #### L STR #### Testing performed at [facility] Sodium [Moles/Vol] 137 mmol/L Normal 137-145 [facility] Comment on above: Performed By: #### L STR #### Testing performed at [facility] Urea nitrogen [Mass/Vol] 15 mg/dL Normal 7-20 [facility] Comment on above: Performed By: #### L STR #### Testing performed at [facility] C REACTIVE PROTEINon 023 CRP [Mass/Vol] 19.5 mg/L High 0-10 [facility] Comment on above: Performed By: #### L STR #### Testing performed at [facility] CBCon 02-28-2023 Basophils/100 WBC (Bld) 1 % Normal 0.0-2.0 [facility] Comment on above: Performed By: #### L STR #### Testing performed at [facility] DTYPE MANUAL DIFF Normal [facility] Comment on above: Performed By: #### L STR #### Testing performed at [facility] Eosinophils/100 WBC (Bld) 5 % Normal 0.0-11.0 [facility] Comment on above: Performed By: #### L STR #### Testing performed at [facility] Lymphocytes/100 WBC (Bld) 34 % Normal 20.0-55.0 [facility] Comment on above: Performed By: #### L STR #### Testing performed at [facility] Monocytes/100 WBC (Bld) 3 % Normal 0.0-10.0 [facility] Comment on above: Performed By: #### L STR #### Testing performed at [facility] Neutrophils/100 WBC (Bld) 57 % Normal 37.0-75.0 [facility] Comment on above: Performed By: #### L STR #### Testing performed at [facility] PLATELET COMMENT DECREASED Normal [facility] Comment on above: Performed By: #### L STR #### Testing performed at [facility] RBC morphology finding Nom (Bld) 1+ Normal [facility] Comment on above: Result Comment: MICR OCYTOSIS 1+ ANISOCYTE 1+ POIKILOCYTE Performed By: #### L STR #### Testing performed at [facility] Erythrocyte distribution width (RBC) [Ratio] 16.4 % High 11.5-14.5 [facility] Comment on above: Performed By: #### L STR #### Testing performed at [facility] Hematocrit (Bld) [Volume fraction] 29.3 % Low 42.0-52.0 [facility] Comment on above: Performed By: #### L STR #### Testing performed at [facility] Hemoglobin (Bld) [Mass/Vol] 9.4 g/dL Low 14.0-18.0 [facility] Comment on above: Performed By: #### L STR #### Testing performed at [facility] MCH (RBC) [Entitic mass] 23.1 pg Low 26.0-35.0 [facility] Comment on above: Performed By: #### L STR #### Testing performed at [facility] MCHC (RBC) [Mass/Vol] 31.9 g/dL Normal 27.0-37.0 [facility] Comment on above: Performed By: #### L STR #### Testing performed at [facility] MCV (RBC) [Entitic vol] 72.3 fL Low 80.0-100.0 [facility] Comment on above: Performed By: #### L STR #### Testing performed at [facility] Platelet mean volume (Bld) [Entitic vol] 7.7 fL Normal 7.4-11.0 [facility] Comment on above: Performed By: #### L STR #### Testing performed at [facility] Platelets (Bld) [#/Vol] 91 10*3/uL Low 130-400 [facility] Comment on above: Performed By: #### L STR #### Testing performed at [facility] RBC (Bld) [#/Vol] 4.05 10*6/uL Normal 4.0-6.1 [facility] Comment on above: Performed By: #### L STR #### Testing performed at [facility] WBC (Bld) [#/Vol] 1.7 10*3/uL Critically low 3.6-11.0 [facility] Comment on above: Result Comment: CALL ED TO AND READ BACK BY HARDY HUTCHINS RN AT 0523 KK Performed By: #### L STR #### Testing performed at [facility] ESRon 02-28-2023 ESR (Bld) [Velocity] 35 mm/h High 0-20 [facility] Comment on above: Performed By: #### L STR #### Testing performed at [facility] LAST DOSEon 02-28-2023 LAST DOSE 02.28.23 @1314 Normal [facility] MAGNESIUMon 02-28-2023 Magnesium [Mass/Vol] 2.2 mg/dL Normal 1.6-2.3 [facility] Comment on above: Performed By: #### A CBC ####[place] [address]#### LHCVF, LHCV ####Testing performed at [facility] RENAL PANEL,FASTINGon 2022 ALBUMIN 2.7 G/dl Low 3.5-5.0 [facility] Comment on above: Performed By: #### L STR #### Testing performed at [facility] Calcium [Mass/Vol] 7.6 mg/dL Low 8.4-10.2 [facility] Comment on above: Performed By: #### L STR #### Testing performed at [facility] Chloride [Moles/Vol] 107 mmol/L Normal 98-107 [facility] Comment on above: Result Comment: Plea se note: Triglyceride levels of 600mg/dL or higher may positively bias chloride results by approximately 2.1 mmol Performed By: #### L STR #### Testing performed at [facility] CO2 [Moles/Vol] 27 mmol/L Normal 22-30 [facility] Comment on above: Performed By: #### L STR #### Testing performed at [facility] Creatinine [Mass/Vol] 0.51 mg/dL Low 0.7-1.2 [facility] Comment on above: Performed By: #### L STR #### Testing performed at [facility] EST. GFR, 216 ml/min/1.73sq.m [facility] Comment on above: Performed By: #### L STR #### Testing performed at [facility] EST. GFR,Non 179 ml/min/1.73sq.m [facility] Comment on above: Performed By: #### L STR #### Testing performed at [facility] GFR Information Average GFR for 50-5 9 years old = 93. Normal [facility] Comment on above: Result Comment: Phlebotomist Prn kaveh Kidney disease, GFR = <60. Kidney failure, GFR = <15. The GFR estimate is not adjusted for extreme body surface area or acute process, nor has it been validated for women or ethnic groups other than and . Performed By: #### L STR #### Testing performed at [facility] Glucose [Mass/Vol] 152 mg/dL High 70-100 [facility] Comment on above: Result Comment: NORMAL <100 mg/dL PREDIABETES 101-126 mg/dL DIABETES 126 mg/dL or higher Performed By: #### L STR #### Testing performed at [facility] PHOSPHOROUS 2.9 MG/DL Normal 2.5-4.5 [facility] Comment on above: Performed By: #### L STR #### Testing performed at [facility] Potassium [Moles/Vol] 3.7 mmol/L Normal 3.5-5.1 [facility] Comment on above: Performed By: #### L STR #### Testing performed at [facility] Sodium [Moles/Vol] 137 mmol/L Normal 137-145 [facility] Comment on above: Performed By: #### L STR #### Testing performed at [facility] Urea nitrogen [Mass/Vol] 16 mg/dL Normal 7-20 [facility] Comment on above: Performed By: #### L STR #### Testing performed at [facility] US DUPLEX EXTREMITY DVT MARCUS Powers 02-28-2023 [...] 2. Shotty bilateral inguinal lymph nodes. Normal [facility] VANCOMYCIN TROUGHon 02-29-20 23 VANCOMYCIN TROUGH 19.5 UG/ML Normal -20 [facility] VANCOMYCIN TROUGH 16.0 UG/ML Normal 15-20 [facility] BLOOD CULTUREon 02-27-2023 Bacteria identified Cx Nom (Bld) SPECIMEN DESCRIPTION PERIPHERAL BLOOD DRAW SPECIAL REQUESTS right wrist CULTURE NO GROWTH 5 DAYS * Result Note: Testing performed at [place] [address] * REPORT STATUS 03/04/2023 * Result Note: FINAL * Normal [facility] Comment on above: Performed By: #### L STR #### Testing performed at [facility] Bacteria identified Cx Nom (Bld) SPECIMEN DESCRIPTION PERIPHERAL BLOOD DRAW SPECIAL REQUESTS LEFT FORARM CULTURE NO GROWTH 5 DAYS * Result Note: Testing performed at [place] [address] * REPORT STATUS 03/04/2023 * Result Note: FINAL * Normal [facility] Comment on above: Performed By: #### B LC #### Testing performed at [facility] [address] [place] [address] Testing performed at [facility] [address] [place] [address] C REACTIVE PROTEINon 023 CRP [Mass/Vol] 25.1 mg/L High 0-10 [facility] ESRon 02-27-2023 ESR (Bld) [Velocity] 32 mm/h High 0-20 [facility] HEMOGLOBIN A1Con 02-27-2023 Glucose [Mass/Vol] 91 mg/dL Normal [facility] HbA1c (Bld) [Mass fraction] 4.8 % Normal 0-6 [facility] Comment on above: Result Comment: NORMAL <5.7% PREDIABETES 5.7-6.4% DIABETES 6.5% OR HIGHER LACTATE,BLOODon 02-27-2023 Lactate [Moles/Vol] 1.0 mmol/L Normal 0.7-2.0 [facility] MRSA SCREENon 02-27-2023 MRSA DNA HERMAN+probe Ql (Unsp spec) Negative Normal NEGATIVE [facility] STAPH AUREUS SCREEN Positive Abnormal NEGATIVE [facility] Comment on above: Result Comment: TEST ING PERFORMED BY PCR PROCALCITONINon 02-27-2023 PROCALCITONIN 0.07 ng/mL Normal 0.00-0.49 [facility] Comment on above: Result Comment: [...] 6 to 24 hours. Testing performed at [place] [id number] Performed By: #### P CT #### Testing performed at [place] [id number] CBC, EDIF, PLATELETon 2022 ABSOLUTE BASOPHIL COUNT 0.0 10*3/uL 0.0 - 0.2 10*3/uL [facility] Basophils/100 WBC (Bld) 0.2 % 0.0 - 2.0 % [facility] Differential cell count method Nom (Bld) AUTO DIFF % [facility] Eosinophils (Bld) [#/Vol] 0.1 10*3/uL 0.0 - 0.7 10*3/uL [facility] Eosinophils/100 WBC (Bld) 2.0 % 0.0 - 11.0 % [facility] Erythrocyte distribution width (RBC) [Ratio] 16.6 % High 11.5 - 14.5 % [facility] Hematocrit (Bld) [Volume fraction] 31.8 % Low 42.0 - 52.0 % [facility] Hemoglobin (Bld) [Mass/Vol] 10.0 g/dL Low [facility] Interpretation and review of laboratory results Abnormal [facility] Lymphocytes (Bld) [#/Vol] 0.6 10*3/uL Low 1.2 - 3.4 10*3/uL [facility] Lymphocytes/100 WBC (Bld) 19.7 % Low 20.0 - 55.0 % [facility] MCH (RBC) [Entitic mass] 22.5 pg Low 26.0 - 35.0 PG [facility] MCHC (RBC) [Mass/Vol] 31.4 g/dL [facility] MCV (RBC) [Entitic vol] 71.5 fL Low [facility] Monocytes (Bld) [#/Vol] 0.3 10*3/uL 0.0 - 0.7 10*3/uL [facility] Monocytes/100 WBC (Bld) 10.5 % High 0.0 - 10.0 % [facility] Neutrophils (Bld) [#/Vol] 1.9 10*3/uL 1.4 - 6.5 10*3/uL [facility] Neutrophils/100 WBC (Bld) 67.6 % 37.0 - 75.0 % [facility] Platelet mean volume (Bld) [Entitic vol] 8.5 fL [facility] Platelets (Bld) [#/Vol] 104 10*3/uL Low 130 - 400 10*3/uL [facility] RBC (Bld) [#/Vol] 4.44 10*6/uL 4.0 - 6.1 10*6/uL [facility] WBC (Bld) [#/Vol] 2.9 10*3/uL Low 3.6 - 11.0 10*3/uL [facility] COMPREHENSIVE METABOLIC PANE Ras 02-26-2023 Albumin [Mass/Vol] 3.2 G/dl Low 3.5 - 5.0 G/dl [facility] Albumin/Globulin [Mass ratio] 0.8 {ratio} RATIO [facility] ALP [Catalytic activity/Vol] 54 U/L [facility] ALT [Catalytic activity/Vol] 17 U/L NINF [facility] AST [Catalytic activity/Vol] 26 U/L [facility] Bilirubin [Mass/Vol] 1.1 mg/dL [facility] Calcium [Mass/Vol] 8.0 mg/dL Low [facility] Chloride [Moles/Vol] 100 mmol/L [facility] Comment on above: Please note: Triglyc eride levels of 600mg/dL or higher may positively bias chloride results by approximately 2.1 mmol CO2 [Moles/Vol] 31 mmol/L High [facility] Creatinine [Mass/Vol] 0.58 mg/dL Low [facility] GFR COMMENT Average GFR for 50-5 9 years old = 93. [facility] Comment on above: Chronic Kidney disea se, GFR = <60. Kidney failure, GFR = <15. The GFR estimate is not adjusted for extreme body surface area or acute process, nor has it been validated for women or ethnic groups other than and . GFR/1.73 sq M.predicted among blacks MDRD (S/P/Bld) [Vol rate/Area] 186 mL/min/{1.73_m2} ml/min/1.73s q.m [facility] GFR/1.73 sq M.predicted among non-blacks MDRD (S/P/Bld) [Vol rate/Area] 154 mL/min/{1.73_m2} ml/min/1.73s q.m [facility] Glucose post fast [Mass/Vol] 129 mg/dL High [facility] Comment on above: NORMAL <100 mg/dL PREDIABETES 101-126 mg/dL DIABETES 126 mg/dL or higher Interpretation and review of laboratory results Abnormal [facility] Potassium [Moles/Vol] 3.8 mmol/L [facility] Protein [Mass/Vol] 7.4 g/dL [facility] Sodium [Moles/Vol] 138 mmol/L [facility] Urea nitrogen [Mass/Vol] 17 mg/dL [facility] LACTATE, BLOODon 02-26-2023 Interpretation and review of laboratory results Abnormal [facility] Lactate [Moles/Vol] 3.0 mmol/L Critically high 0.7 - 2.0 mmol/L [facility] Comment on above: PLEASE REPEAT INITIA L CRITICAL IN 3 HOURS IF ED OR INPATIENT SEPSIS PATIENT Result called to read back by: CICI 02/26/2023 @ 21:48 by RAJAN [facility] MAGNESIUMon 02-26-2023 Magnesium [Mass/Vol] 1.9 mg/dL [facility] No Panel Informationon 02-26 [facility] PROTIME-INRon 02-26-2023 INR Coag (PPP) [Relative time] 1.25 {INR} High 0.85 - 1.10 [facility] Comment on above: 2.0-3.0 THERAPEUTIC RANGE 2.5-3.5 MECHANICAL VALVE RANGE Interpretation and review of laboratory results Abnormal [facility] PT Coag (PPP) [Time] 15.8 s High [facility] WOUND DEBRIDEMENTon 01-19-20 KIEL Hoff 01/18/2023 4:34 [...] with the proposed plan, giving informed consent. [place] Protocol required: Yes. [place] Protocol is required. Preprocedure verification is complete [...] treatment: Procedure was tolerated well Complications: None [facility] Radiology Study observation (narrative) [facility] WOUND CULTUREon 12-31-2022 WOUND CULTURE SPECIMEN DESCRIPTION [...] MANUAL OF CLINICAL MICROBIOLOGY 7TH EDITION 1999 [id number] * * Result Note: THE GLYCOPEPTIDES AND LIPOPEPTIDES (VANCOMYCIN IN PARTICULAR) AND THE MACROLIDES ERYTHROMYCIN, CLARITHROMYCIN AND AZITHROMYCIN HAVE SHOWN ACTIVITY AGAINST CORYNEBACTERIUM SP. (MANUAL OF CLINICAL MICROBIOLOGY Y, ET. AL. [id number]). * * Result Note: ENTEROCOCCUS FAECALIS GROUP D * * Result Note: MODERATE GROWTH * * Result Note: Testing performed at [place], [place] [address] * REPORT STATUS 12/31/2022 * Result Note: FINAL * ORGANISM ENTEROCOCCUS FAECALIS GROUP D * Result Note: ENTEROCOCCUS FAECALIS GROUP D * METHOD LIV AMPICILLIN <=2 SUSCEPTIBLE PENICILLIN G 2 SUSCEPTIBLE VANCOMYCIN 1 SUSCEPTIBLE GENTAMICIN HIGH LEVEL RESISTANT STREPTOMYCIN HIGH LEVEL RESISTANT Normal [facility] Comment on above: Performed By: #### M G, TILA, WILNER, LIVR #### [place] [address] CELLULAR AND TISSUE-BASED GA ODUCT WOUND CAREon 12-28-2022 KIEL oHff 12/28/2022 4:49 PM CELLULAR AND TISSUE-BASED PRODUCT [...] Tolerated well, no immediate complications Complications: None [facility] Radiology Study observation (narrative) [facility] [place] CELLULAR AND TISSUE-BASED GA ODUCT WOUND CAREon 12-21-2022 KIEL Hoff 12/21/2022 [...] Tolerated well, no immediate complications Complications: None [facility] Radiology Study observation (narrative) [facility] CT Head WO contraston 2022 IMPRESSION: 1. [...] scalp, possibly representing a contusion or scarring. [facility] Rad[facility] Study observation (narrative) [facility] CT Head WO contrastOrdered B y: Dee Hernandez on 12-08-2022 [facility] Work Phone: DIAGNOSTIC UPPER ENDOSCOPYon 10-21-2022 [facility] [place] [facility] [place] [facility] Patient Name: Carmen Gilman Procedure Date: 10/21/2022 1:12 PM Date of : 1965 Admit Type: Outpatient Age: 57 Room: Procedure Room #2 Gender: Male Note Status: Finalized Attending MD: Antony Suarez Jr., DO, [id number] Instrument Name: [id number] Procedure: Upper GI endoscopy Attending Participation: I personally performed the entire procedure. Indications: Cirrhosis with suspected esophageal varices Providers: Antony Suarez Jr., DO Referring MD: ANI WORLEY, [employer] Complications: No immediate complications. Estimated Blood Loss: [...] previous diet. Procedure Code(s): --- Professional --- 37428, Esophagogastroduodenoscopy, flexible, transoral; diagnostic, including collection of specimen(s) by brushing or washing, when performed (separate procedure) Diagnosis Code(s): --- Professional --- K74.60, Unspecified cirrhosis of liver I85.10, Secondary esophageal varices without bleeding K76.6, Portal hypertension K31.89, Other diseases of stomach and duodenum CPT copyright 2021 [employer]. All rights reserved. The codes documented in this report are preliminary and upon co (more content not included)... LAB, [facility] Radiology Study observation (narrative) [facility] CBC Auto Differentialon 03-24 Erythrocyte distribution width (RBC) [Entitic vol] 16.0 % High 11.6 - 14.8 % [facility] [facility] Hematocrit (Bld) [Volume fraction] 28.3 % Low 41 - 53 % [facility] Hemoglobin (Bld) [Mass/Vol] 8.9 g/dL Low 13.5 - 17.5 g/dL [facility] MCH (RBC) [Entitic mass] 21.5 pg Low 26 - 34 pg [facility] MCHC (RBC) [Mass/Vol] 31.4 g/dL 31 - 37 g/dL [facility] MCV (RBC) [Entitic vol] 68.5 fL Low 80 - 100 fL [facility] Nucleated RBC (Bld) [#/Vol] 0.00 10*3/uL [facility] Nucleated RBC/100 WBC (Bld) [Ratio] 0.0 % [facility] Platelets (Bld) [#/Vol] 85 10*3/uL Low [facility] RBC (Bld) [#/Vol] 4.13 10*6/uL Low [facility] ealth WBC (Bld) [#/Vol] 2.02 10*3/uL Low [facility] CBC and Diff Morphologyon Ovalocytes LM Ql (Bld) Few [facility] RBC morphology finding Nom (Bld) See Comment [facility] Comment on above: RBC Indices confirme d with manual peripheral smear review. [facility] CRP [Mass/Vol]on 04-21-2022 Interpretation and review of laboratory results Abnormal [facility] CRP, Inflammationon 04-21-20 CRP [Mass/Vol] 19.0 mg/L High NINF - 10.0 mg/L [facility] ESR Westergren method (Bld) [Velocity]on 04-21-2022 ESR (Bld) [Velocity] 57 mm/h High [facility] Interpretation and review of laboratory results Abnormal [facility] HbA1c (Bld) [Mass fraction]O rdered By: Camelia Romero on 04-21-2022 Average glucose Estimated from glycated hemoglobin (Bld) [Mass/Vol] 123 mg/dL High 68 - 114 mg/dL [facility] Interpretation and review of laboratory results Abnormal [facility] Normal: 4.0% - 5.6% Increased risk for diabetes: 5.7% - 6.4% Diabetes: >= 6.5% Pediatrics: No established reference range Estimated average glucose: 68-114 mg/dL [facility] Hemoglobin [id number] By: Libby Romero on 04-21-2022 HbA1c (Bld) [Mass fraction] 5.9 % High 4 - 5.6 % [facility] Magnesiumon 04-21-2022 Magnesium [Mass/Vol] 2.5 mg/dL High 1.6 - 2 .4 mg/dL [facility] Magnesium [Mass/Vol]on 04-21 Interpretation and review of laboratory results Abnormal [facility] Manual Differential panel (B ld)on 04-21-2022 Basophils (Bld) [#/Vol] 0.00 10*3/uL [facility] Basophils/100 WBC (Bld) 0.0 % [facility] Eosinophils (Bld) [#/Vol] 0.05 10*3/uL [facility] Eosinophils/100 WBC (Bld) 2.6 % [facility] Lymphocytes (Bld) [#/Vol] 0.40 10*3/uL Low [facility] Lymphocytes/100 WBC (Bld) 20.0 % [facility] Monocytes (Bld) [#/Vol] 0.05 10*3/uL Low [facility] Monocytes/100 WBC (Bld) 2.6 % [facility] Neutrophils (Bld) [#/Vol] 1.51 10*3/uL Low [facility] Neutrophils/100 WBC (Bld) 74.8 % [facility] No Panel Informationon 04-21 Interpretation and review of laboratory results Abnormal [facility] 1. Bilateral subcutaneous edema. 2. No acute fracture or dislocation identified in either knee. 3. Total right knee arthroplasty in place. JAR/jcw Workstation ID: [id number] [employer] EXAMINATION: XR KNEE LEFT 2 VIEWS [...] There is edema in the subcutaneous tissues. [employer] Radames Villarreal Ala, DO - 04/21/2022 [...] DIAGNOSIS CODES: N17.9 MARLENE (acute kidney injury) ([facility]) COMPARISON: Left knee series October 07, 2021. [...] arthroplasty in place. JAR/jcw Workstation ID: [id number] [facility] Renal function 2000 panelon 04-21-2022 Albumin [Mass/Vol] 2.3 g/dL Low 3.2 - 5.2 g/dL [facility] Anion gap [Moles/Vol] 9 mmol/L Low 10 - 20 mmol/L [facility] Calcium [Mass/Vol] 8.4 mg/dL 8.4 - 10. 2 mg/dL [facility] Chloride [Moles/Vol] 108 mmol/L 98 - 10 8 mmol/L [facility] Creatinine [Mass/Vol] 1.40 mg/dL High 0.50 - 1.30 mg/dL [facility] GFR/1.73 sq M.predicted CKD-EPI (S/P/Bld) [Vol rate/Area] 59 Low - PINF [facility] Comment on above: Estimated GFR was ca lculated using the 2020 CKD-EPI creatinine equation. Glucose [Mass/Vol] 104 mg/dL High 65 - 99 mg/dL [facility] HCO3 [Moles/Vol] 28 mmol/L 21 - 32 mmol/L [facility] Interpretation and review of laboratory results Abnormal [facility] Phosphate [Mass/Vol] 3.9 mg/dL 2.7 - 4 .5 mg/dL [facility] Potassium [Moles/Vol] 4.8 mmol/L 3.5 - 5.1 mmol/L [facility] Sodium [Moles/Vol] 140 mmol/L 135 - 145 mmol/L [facility] Urea nitrogen [Mass/Vol] 47 mg/dL High 8 - 25 mg/dL [facility] Urea nitrogen/Creatinine [Mass ratio] 33.6 mg/mg High 10 - 20 [facility] Laborator y Services has implemented the eGFR calculation approach that does not have a coefficient for race that conforms to the NKF-ASN Task Force Recommendations. [facility] TSH DL <= 0.005 mIU/L Qnon 0 04-21-2022 Interpretation and review of laboratory results Normal [facility] TSH Qn 1.32 m[IU]/L [facility] US Renal and Bladderon 04-21 1. No hydronephrosis. 2. Splenomegaly. Workstation ID: [id number] [employer] EXAMINATION: US RENAL AND BLADDER HISTORY: ORDERING [...] is enlarged measuring up to 20.8 cm. [employer] Rodolfo Garcia MD - 04/21/2022 EXAMINATION: US RENAL AND BLADDER HISTORY: ORDERING SYSTEM PROVIDED HISTORY: MARLENE, TECHNOLOGIST PROVIDED HISTORY: Illness/Other Reason for exam: MARLENE Cancer History: unknown Surgery, RadiationHistory: unknown Encounter Type: Initial Additional signs and symptoms: none ORDERING SYSTEM PROVIDED DIAGNOSIS CODES: L03.119 Cellulitis of lower extremity, unspecified laterality N17.9 MARLENE (acute kidney injury) ([facility]) I95.9 Hypotension, unspecified hypotension type E86.0 Dehydration [...] No hydronephrosis. 2. Splenomegaly. Workstation ID: [id number] [facility] Renal and BladderOrdered By: Rodolfo Garcia on 04-21-2022 [facility] Work Phone: Ultrasound duplex venous leg s bilaton 04-21-2022 Patient Info Name: CARMEN GILMAN Age: 56 years : 1965 Gender: Male Exam Date: 04/21/2022 7:12 AM Patient Status: Inpatient Thermospray Operator: Margi Lemon RVT Referring Physician: LINDA Owens; Indications R22.43 - Localized swelling, mass and lump, lower limb, bilateral Procedure Description 46778 Duplex examination using B-mode, color and spectral [...] DOC Menjivar DO on 04/21/2022 01:10 PM [employer] Your Brain[employer]uz CV Luis Daniel Cao III, DO - 04/21/2022 Patient Info Name: CARMEN GILMAN Age: 56 years : 1965 Gender: Male Exam Date: 04/21/2022 7:12 AM Patient Status: Inpatient Thermospray Operator: Margi Lemon RVT Referring Physician: LINDA Owens; Indications R22.43 - Localized swelling, mass and lump, lower limb, bilateral Procedure Description 71222 Duplex examination using B-mode, color and spectral [...] DOC Menjivar DO on 04/21/2022 01:10 PM [facility] Radiology Study observation (narrative) [facility] Ultrasound duplex venous leg s bilatOrdered By: Luis Daniel Cao on 04-21-2022 [facility] Work Phone: UrinalysisOrdered By: David Vines on 04-21-2022 Bacteria Auto Ql (U) None Seen None Se en /hpf [facility] Bilirubin Ql (U) Negative Negative [facility] th Clarity Refractometry automated (U) Clear Clear [facility] Color (U) Yellow Colorless, Yellow [facility] Glucose Auto test strip (U) [Mass/Vol] Negative Negative mg/dL [facility] Hemoglobin Auto test strip Ql (U) Negative Negative [facility] Interpretation and review of laboratory results Normal [facility] Ketones (U) [Mass/Vol] Negative Negative mg/dL [facility] Leukocyte esterase Auto test strip Ql (U) Negative Negative [facility] Mucus Auto (Urine sed) [#/Area] Rare None Seen, Rare /lpf [facility] Nitrite Auto test strip Ql (U) Negative Negative [facility] pH (U) 6.0 [pH] 5 - 7 [facility] Protein (U) [Mass/Vol] Negative Negative mg/dL [facility] RBC Auto (Urine sed) [#/Area] 1 [facility] Specific gravity (U) [Rel density] 1.014 1.005 - 1.025 [facility] Urobilinogen (U) [Mass/Vol] mg/dL NINF - 2.0 mg/dL [facility] WBC Auto (Urine sed) [#/Area] 1 [facility] Microscopic examinat ion is performed on all urinalysis samples and only positive findings are reported. The test for blood on the chemical analytic portion of urinalysis may also be positive due to hemoglobinuria and myoglobinuria and if red blood cells are present they are quantified by microscopic examination. [facility] XR Chest 1 Viewon 04-21-2022 No acute cardiopulmonary process. [employer] Workstation ID: [id number] [employer] EXAMINATION: XR CHEST PA/AP 04/20/2022 2:55 pm [...] left calcaneal humeral joint are again noted. [employer] Radames Villarreal Ala, DO - 04/21/2022 EXAMINATION: [...] again noted. IMPRESSION: No acute cardiopulmonary process. [employer] Workstation ID: [id number] [facility] XR Chest 1 ViewOrdered By: Sandra Villarreal on 04-21-2022 [facility] Work Phone: XR Pelvis 1 View (Standard)o n 04-21-2022 No acute osseous abnormality of the pelvis is identified. [employer] Workstation ID: [id number] [employer] EXAMINATION: XR PELVIS 1 VIEW (STANDARD) 04/20/2022 [...] the acetabula. No acute fracture is visible. [facility] Radames Villareral Ala, DO - 04/21/2022 EXAMINATION: XR PELVIS [...] osseous abnormality of the pelvis is identified. [employer] Workstation ID: [id number] [facility] Alcohol, Medicalon 08-30-202 2 Ethanol [Mass/Vol] mg/dL NINF - 10 .00 mg/dL [facility] Comment on above: Alcohol cutoff: <10. 00 mg/dL = None Detected Basic metabolic 1998 panelon 04-20-2022 Anion gap [Moles/Vol] 10 mmol/L 10 - 20 mmol/L [facility] Chloride [Moles/Vol] 102 mmol/L 98 - 10 8 mmol/L [facility] Creatinine [Mass/Vol] 2.30 mg/dL High 0.50 - 1.30 mg/dL [facility] GFR/1.73 sq M.predicted CKD-EPI (S/P/Bld) [Vol rate/Area] 33 Low - PINF [facility] Comment on above: Estimated GFR was ca lculated using the 2020 CKD-EPI creatinine equation. Glucose [Mass/Vol] 111 mg/dL High 65 - 99 mg/dL [facility] HCO3 [Moles/Vol] 27 mmol/L 21 - 32 mmol/L [facility] Potassium [Moles/Vol] 5.0 mmol/L 3.5 - 5.1 mmol/L [facility] Sodium [Moles/Vol] 134 mmol/L Low 135 - 145 mmol/L [facility] Urea nitrogen [Mass/Vol] 71 mg/dL High 8 - 25 mg/dL [facility] Urea nitrogen/Creatinine [Mass ratio] 30.9 mg/mg High 10 - 20 [facility] has implemented the eGFR calculation approach that does not have a coefficient for race that conforms to the NKF-ASN Task Force Recommendations. [facility] CBC Auto Differentialon 03-24 Erythrocyte distribution width (RBC) [Entitic vol] 16.3 % High 11.6 - 14.8 % [facility] Hematocrit (Bld) [Volume fraction] 31.6 % Low 41 - 53 % [facility] Hemoglobin (Bld) [Mass/Vol] 10.0 g/dL Low 13.5 - 17.5 g/dL [facility] MCH (RBC) [Entitic mass] 21.7 pg Low 26 - 34 pg [facility] MCHC (RBC) [Mass/Vol] 31.6 g/dL 31 - 37 g/dL [facility] MCV (RBC) [Entitic vol] 68.7 fL Low 80 - 100 fL [facility] Nucleated RBC (Bld) [#/Vol] 0.00 10*3/uL [facility] Nucleated RBC/100 WBC (Bld) [Ratio] 0.0 % [facility] Platelets (Bld) [#/Vol] 102 10*3/uL Low [facility] RBC (Bld) [#/Vol] 4.60 10*6/uL [facility] WBC (Bld) [#/Vol] 3.28 10*3/uL Low [facility] CBC and Diff Morphologyon RBC morphology finding Nom (Bld) See Comment [facility] Comment on above: RBC Indices confirme d with manual peripheral smear review. EKGon 04-20-2022 Ordered by an unspec ified provider. [facility] EKG 12-leadon 04-20-2022 Carolina Solis MD 04/20/2022 3:15 PM EKG 12-lead Date/Time: 04/20/2022 3:15 PM Performed by: Carolina Solis MD Authorized by: Carolina Solis MD Interpreted by ED attending physician Comparison: not compared with previous ECG Rhythm: sinus rhythm BPM: 69 Conduction: conduction normal ST Segments: ST segments normal T Inversion: V2 normal GA interval normal QRS interval normal QT interval Clinical impression: non-specific ECG MUSE [facility] Ethanol [Mass/Vol]on 022 Interpretation and review of laboratory results Normal [facility] Hepatic function 2000 panelo n 04-20-2022 Albumin [Mass/Vol] 2.8 g/dL Low 3.2 - 5.2 g/dL [facility] ALP [Catalytic activity/Vol] 58 U/L 40 - 150 U/L [facility] ALT [Catalytic activity/Vol] 27 U/L 14 - 65 U/L [facility] AST [Catalytic activity/Vol] 30 U/L 0 - 45 U/L [facility] Bilirubin [Mass/Vol] 0.8 mg/dL 0 - 1.3 mg/dL [facility] Bilirubin.conjugated [Mass/Vol] 0.2 mg/dL 0 - 0.4 mg/dL [facility] Protein [Mass/Vol] 8.1 g/dL High 6 - 8 g/dL [facility] alth Lactate [Moles/Vol]on 2021 Interpretation and review of laboratory results Normal [facility] Lactic Acid, Plasmaon 2021 Lactate [Moles/Vol] 1.2 mmol/L 0.6 - 2 mmol/L [facility] Manual Differential panel (B ld)on 04-20-2022 Basophils (Bld) [#/Vol] 0.00 10*3/uL [facility] Basophils/100 WBC (Bld) 0.0 % [facility] Eosinophils (Bld) [#/Vol] 0.03 10*3/uL [facility] Eosinophils/100 WBC (Bld) 0.9 % [facility] Lymphocytes (Bld) [#/Vol] 0.60 10*3/uL Low [facility] Lymphocytes/100 WBC (Bld) 18.3 % [facility] Monocytes (Bld) [#/Vol] 0.26 10*3/uL Low [facility] Monocytes/100 WBC (Bld) 7.8 % [facility] Neutrophils (Bld) [#/Vol] 2.39 10*3/uL [facility] Neutrophils/100 WBC (Bld) 73.0 % [facility] NT Pro BNPon 04-20-2022 Natriuretic peptide.B prohormone N-Terminal [Mass/Vol] 106 pg/mL 0 - 300 pg/mL [facility] Natriuretic peptide.B prohor randi N-Terminal [Mass/Vol]on 04-20-2022 Interpretation and review of laboratory results Normal [facility] Pride Study Cut-offs Rule In: < /= 50 Years >450 pg/mL 51 Years - 75 Years >900 pg/mL 76 Years - 99 Years >1800 pg/mL Rule Out: All patients <300 pg/mL [facility] No Panel Informationon 04-20 [facility] Interpretation and review of laboratory results Abnormal [facility] Interpretation and review of laboratory results Abnormal [facility] Obtain VBG and performon [facility] POC Venous Blood Gas Panel-P ulmon 04-20-2022 Base excess Calc (BldV) [Moles/Vol] 1.3 mmol/L -2 - 2 [facility] CO2 (BldV) [Partial pressure] 49.3 mm[Hg] [facility] HCO3 (Bld) [Moles/Vol] 27.4 mmol/L 24 - 28 mmol/L [facility] Hematocrit (BldA) [Volume fraction] 30.0 % Low 41 - 53 % [facility] Hemoglobin (Bld) [Mass/Vol] 9.8 g/dL Low 13.5 - 17.5 g/dL [facility] Inhaled oxygen concentration 21 % [facility] Interpretation and review of laboratory results Abnormal [facility] Oxygen (BldV) [Partial pressure] 65 mm[Hg] High [facility] Oxygen saturation in Venous blood 91.9 % High 40 - 70 % [facility] pH (BldV) 7.35 [pH] 7.32 - 7.42 [facility] Specimen source Nom (Unsp spec) Not specified [facility] Base excess Calc (BldV) [Moles/Vol] 1.4 mmol/L -2 - 2 [facility] CO2 (BldV) [Partial pressure] 49.4 mm[Hg] [facility] HCO3 (Bld) [Moles/Vol] 27.5 mmol/L 24 - 28 mmol/L [facility] Hematocrit (BldA) [Volume fraction] 30.8 % Low 41 - 53 % [facility] Hemoglobin (Bld) [Mass/Vol] 10.1 g/dL Low 13.5 - 17.5 g/dL [facility] Inhaled oxygen concentration 21 % [facility] Interpretation and review of laboratory results Abnormal [facility] Oxygen (BldV) [Partial pressure] 63 mm[Hg] High [facility] Oxygen saturation in Venous blood 91.1 % High 40 - 70 % [facility] pH (BldV) 7.35 [pH] 7.32 - 7.42 [facility] Troponinon 04-20-2022 Delta Difference Troponin I 0 ng/L < -/+ 12 change [facility] Troponin I Delta Change No biomarker evidence of cardiac injury. [facility] Troponin I 3 ng/L NINF - 59 ng/L [facility] Delta Difference Troponin I ng/L < -/+ 12 change ng/L [facility] Troponin I Delta Change No biomarker evidence of cardiac injury. [facility] Troponin I ng/L NINF - 59 ng/L [facility] Troponin x 2 (Now and Repeat in 3 hours)on 04-20-2022 Delta Difference Troponin I ng/L < -/+ 12 change ng/L [facility] Troponin I Delta Change No biomarker evidence of cardiac injury. [facility] Troponin I ng/L NINF - 59 ng/L [facility] Troponin I 3 ng/L NINF - 59 ng/L [facility] Troponin I Interpretation Normal [facility] US Renal and Bladderon 04-20 Radiology Study observation (narrative) [facility] UrinalysisOrdered By: Kathleen Nick on 04-20-2022 Bacteria Auto Ql (U) None Seen None Se en /hpf [facility] Bilirubin Ql (U) Negative Negative [facility] th Clarity Refractometry automated (U) Clear Clear [facility] Color (U) Yellow Colorless, Yellow [facility] Glucose Auto test strip (U) [Mass/Vol] Negative Negative mg/dL [facility] Hemoglobin Auto test strip Ql (U) Negative Negative [facility] Interpretation and review of laboratory results Normal [facility] Ketones (U) [Mass/Vol] Negative Negative mg/dL [facility] Leukocyte esterase Auto test strip Ql (U) Negative Negative [facility] Mucus Auto (Urine sed) [#/Area] Rare None Seen, Rare /lpf [facility] Nitrite Auto test strip Ql (U) Negative Negative [facility] pH (U) 5.5 [pH] 5 - 7 [facility] Protein (U) [Mass/Vol] Negative Negative mg/dL [facility] RBC Auto (Urine sed) [#/Area] [facility] Specific gravity (U) [Rel density] 1.010 1.005 - 1.025 [facility] Urobilinogen (U) [Mass/Vol] mg/dL NINF - 2.0 mg/dL [facility] WBC Auto (Urine sed) [#/Area] [facility] Microscopic examinat ion is performed on all urinalysis samples and only positive findings are reported. The test for blood on the chemical analytic portion of urinalysis may also be positive due to hemoglobinuria and myoglobinuria and if red blood cells are present they are quantified by microscopic examination. [facility] Urine Drug Screenon 04-20-20 22 Amphetamines Ql (U) Not detected None Detected [facility] Comment on above: Urine Amphetamine Cu toff: < 1000 ng/mL = None Detected Barbiturates Screen Ql (U) Not detected None Detected [facility] Comment on above: Urine Barbiturates C utoff: < 200 ng/mL = None Detected Benzodiazepines Ql (U) Positive Abnormal None Detected [facility] Comment on above: Urine Benzodiazepine Cutoff: < 200 ng/mL = None Detected Buprenorphine Ql (U) Positive Abnormal None Detected [facility] Comment on above: Urine Buprenorphine Cutoff: < 5 ng/mL = None Detected Cannabinoids Screen Ql (U) Not detected None Detected [facility] Comment on above: Urine Cannabinoids C utoff: < 50 ng/mL = None Detected Cocaine Ql (U) Positive Abnormal None Detected [facility] Comment on above: Urine Cocaine Cutoff : < 300 ng/mL = None Detected fentaNYL+Norfentanyl Screen Ql (U) Not detected None Detected [facility] Comment on above: Urine Fentanyl Cutof f: < 1 ng/mL = None Detected Interpretation and review of laboratory results Abnormal [facility] Methadone Screen Ql (U) Not detected None Detected [facility] Comment on above: Urine Methadone Cuto ff: < 300 ng/mL = None Detected Opiates Screen Ql (U) Not detected None Detected [facility] Comment on above: Urine Opiates Cutoff : < 300 ng/mL = None Detected oxyCODONE Ql (U) Not detected None Detected [facility] Comment on above: Urine Oxycodone Cuto ff: < 100 ng/mL = None Detected Specimen will be kep t for 1 week, if the sample is adequate. Confirmation testing can be initiated by calling the lab within 1 week. Screen results should be used for treatment purposes only. [facility] XR Chest 1 Viewon 04-20-2022 Radiology Study observation (narrative) [facility] XR Knee Left 2 Views (Standa rd)on 04-20-2022 Radiology Study observation (narrative) [facility] XR Knee Right 2 Views (Stand no)on 04-20-2022 Radiology Study observation (narrative) [facility] XR Pelvis 1 View (Standard)o n 04-20-2022 Radiology Study observation (narrative) [facility] ALCOHOL (ETHANOL),BLOODon Ethanol [Mass/Vol] mg/dL [facility] Comment on above: INTOXICATION >80 MG/DL FATAL >400 MG/DL C REACTIVE PROTEINon 022 CRP [Mass/Vol] 39.4 mg/L High 0 - 10.0 MG/L [facility] Interpretation and review of laboratory results Abnormal [facility] CBC, EDIF, PLATELETon 2021 ABSOLUTE BASOPHIL COUNT 0.0 10*3/uL 0.0 - 0.2 10*3/uL [facility] Basophils/100 WBC (Bld) 0.8 % 0.0 - 2.0 % [facility] Differential cell count method Nom (Bld) AUTO DIFF % [facility] Eosinophils (Bld) [#/Vol] 0.00 10*3/uL 0.0 - 0.7 10*3/uL [facility] Eosinophils/100 WBC (Bld) 1.3 % 0.0 - 11.0 % [facility] Erythrocyte distribution width (RBC) [Ratio] 15.9 % High 11.5 - 14.5 % [facility] Hematocrit (Bld) [Volume fraction] 35.0 % Low 42.0 - 52.0 % [facility] Hemoglobin (Bld) [Mass/Vol] 11.0 g/dL Low [facility] Interpretation and review of laboratory results Abnormal [facility] Lymphocytes (Bld) [#/Vol] 0.80 10*3/uL Low 1.2 - 3.4 10*3/uL [facility] Lymphocytes/100 WBC (Bld) 20.4 % 20.0 - 55.0 % [facility] MCH (RBC) [Entitic mass] 21.8 pg Low 26.0 - 35.0 PG [facility] MCHC (RBC) [Mass/Vol] 31.3 g/dL [facility] MCV (RBC) [Entitic vol] 69.6 fL Low [facility] Monocytes (Bld) [#/Vol] 0.5 10*3/uL 0.0 - 0.7 10*3/uL [facility] Monocytes/100 WBC (Bld) 13.0 % High 0.0 - 10.0 % [facility] Neutrophils (Bld) [#/Vol] 2.4 10*3/uL 1.4 - 6.5 10*3/uL [facility] Neutrophils/100 WBC (Bld) 64.5 % 37.0 - 75.0 % [facility] Platelet mean volume (Bld) [Entitic vol] 8.2 fL [facility] Platelets (Bld) [#/Vol] 122 10*3/uL Low 130.0 - 400.0 10*3/uL [facility] RBC (Bld) [#/Vol] 5.03 10*6/uL 4.0 - 6.1 10*6/uL [facility] WBC (Bld) [#/Vol] 3.8 10*3/uL 3.6 - 11.0 10*3/uL [facility] COMPREHENSIVE METABOLIC PANE Ras 03-07-2022 Albumin [Mass/Vol] 3.0 G/dl Low 3.5 - 5.0 G/dl [facility] Albumin/Globulin [Mass ratio] 0.7 {ratio} Low [facility] ALP [Catalytic activity/Vol] 45 U/L [facility] ALT [Catalytic activity/Vol] 20 U/L [facility] AST [Catalytic activity/Vol] 34 U/L [facility] Bilirubin [Mass/Vol] 1.4 mg/dL High [facility] Calcium [Mass/Vol] 8.2 mg/dL Low [facility] Chloride [Moles/Vol] 87 mmol/L Low [facility] CO2 [Moles/Vol] 38 mmol/L High [facility] Creatinine [Mass/Vol] 0.82 mg/dL [facility] GFR COMMENT Average GFR for 50-5 9 years old = 93. [facility] Comment on above: Chronic Kidney disea se, GFR = <60. Kidney failure, GFR = <15. The GFR estimate is not adjusted for extreme body surface area or acute process, nor has it been validated for women or ethnic groups other than and . GFR/1.73 sq M.predicted among blacks MDRD (S/P/Bld) [Vol rate/Area] 125 mL/min/{1.73_m2} ml/min/1.73s q.m [facility] GFR/1.73 sq M.predicted among non-blacks MDRD (S/P/Bld) [Vol rate/Area] 104 mL/min/{1.73_m2} ml/min/1.73s q.m [facility] Glucose post fast [Mass/Vol] 148 mg/dL High [facility] Comment on above: NORMAL <100 mg/dL PREDIABETES 101-126 mg/dL DIABETES 126 mg/dL or higher Interpretation and review of laboratory results Abnormal [facility] Potassium [Moles/Vol] 3.4 mmol/L Low [facility] Protein [Mass/Vol] 7.6 g/dL [facility] Sodium [Moles/Vol] 132 mmol/L Low [facility] Urea nitrogen [Mass/Vol] 12 mg/dL [facility] LACTATE, BLOODon 03-07-2022 Lactate [Moles/Vol] 1.5 mmol/L 0.7 - 2. 0 mmol/L [facility] No Panel Informationon 03-07 [facility] PROTIME-INRon 03-07-2022 INR Coag (PPP) [Relative time] 1.22 {INR} High [facility] Comment on above: 2.0-3.0 THERAPEUTIC RANGE 2.5-3.5 MECHANICAL VALVE RANGE Interpretation and review of laboratory results Abnormal [employer] PT Coag (PPP) [Time] 15.5 s [facility] [employer] [facility] PTTon 03-07-2022 aPTT Coag (Bld) [Time] 32.5 s [employer] Comment on above: CARDIAC AND PE/DVT THERAPUTIC RANGE 69-97 SEC VASCULAR/THREATENED LIMB THERAPUTIC RANGE 80-112 SEC [employer] [facility] SEDIMENTATION RATE, AUTOMATE Don 03-07-2022 ESR (Bld) [Velocity] 118 mm/h [facility] [employer] Interpretation and review of laboratory results Abnormal [facility] XR Tibia and Fibula - right Viewson [...] modality for the evaluation of acute osteomyelitis. [facility] Radiology Study observation (narrative) [facility] XR Tibia and Fibula - right ViewsOrdered By: Connie Madden on 03-07-2022 [facility] Work Phone: ISSAC MULTIPLEX SCRN WITH REFL EXon 11-15-2021 Nuclear Ab Ql (S) Negative [facility] Comment on above: Reference range: Neg ative PERFORMED AT [facility] B12 & FOLATEon 11-15-2021 Cobalamin (Vitamin B12) [Mass/Vol] 303 pg/mL 180 - 914 PG/ML [facility] Folate [Mass/Vol] 14.3 ng/mL >5.9 NG/ML [facility] C REACTIVE PROTEINon 022 CRP [Mass/Vol] 18.0 mg/L High 0 - 10.0 MG/L [facility] CBC, EDIF, PLATELETon 2021 ABSOLUTE BASOPHIL COUNT 0.0 10*3/uL 0.0 - 0.2 10*3/uL [facility] Basophils/100 WBC (Bld) 0.2 % 0.0 - 2.0 % [facility] Differential cell count method Nom (Bld) AUTO DIFF % [facility] Eosinophils (Bld) [#/Vol] 0.10 10*3/uL 0.0 - 0.7 10*3/uL [facility] Eosinophils/100 WBC (Bld) 2.9 % 0.0 - 11.0 % [facility] Erythrocyte distribution width (RBC) [Ratio] 15.8 % High 11.5 - 14.5 % [facility] Hematocrit (Bld) [Volume fraction] 30.4 % Low 42.0 - 52.0 % [facility] Hemoglobin (Bld) [Mass/Vol] 9.7 g/dL Low [facility] Interpretation and review of laboratory results Abnormal [facility] Lymphocytes (Bld) [#/Vol] 0.60 10*3/uL Low 1.2 - 3.4 10*3/uL [facility] Lymphocytes/100 WBC (Bld) 27.4 % 20.0 - 55.0 % [facility] MCH (RBC) [Entitic mass] 22.0 pg Low 26.0 - 35.0 PG [facility] MCHC (RBC) [Mass/Vol] 32.0 g/dL [facility] MCV (RBC) [Entitic vol] 68.7 fL Low [facility] Monocytes (Bld) [#/Vol] 0.2 10*3/uL 0.0 - 0.7 10*3/uL [facility] Monocytes/100 WBC (Bld) 9.9 % 0.0 - 10.0 % [facility] Neutrophils (Bld) [#/Vol] 1.4 10*3/uL 1.4 - 6.5 10*3/uL [facility] Neutrophils/100 WBC (Bld) 59.6 % 37.0 - 75.0 % [facility] Platelet mean volume (Bld) [Entitic vol] 8.5 fL [facility] Platelets (Bld) [#/Vol] 109 10*3/uL Low 130.0 - 400.0 10*3/uL [facility] RBC (Bld) [#/Vol] 4.42 10*6/uL 4.0 - 6.1 10*6/uL [facility] WBC (Bld) [#/Vol] 2.3 10*3/uL Low 3.6 - 11.0 10*3/uL [facility] DIRECT ANTIGLOBULIN TEST (DA T)on 11-15-2021 Direct antiglobulin test.poly specific reagent Ql (RBC) Negative [facility] FERRITINon 11-15-2021 Ferritin [Mass/Vol] 230 ng/mL [facility] HEPATIC FUNCTION PANELon Albumin [Mass/Vol] 4.3 g/dL [facility] ALP [Catalytic activity/Vol] 31 U/L Low [facility] ALT [Catalytic activity/Vol] 31 U/L [facility] AST [Catalytic activity/Vol] 40 U/L [facility] Bilirubin [Mass/Vol] 1.4 mg/dL High [facility] Bilirubin.direct [Mass/Vol] 0.3 mg/dL High [facility] Protein [Mass/Vol] 7.2 g/dL [facility] IRON/IRON BINDING/TRANSFERRI Non 11-15-2021 Iron [Mass/Vol] 89 ug/dL [facility] Iron binding capacity [Mass/Vol] 190 Low [facility] Iron saturation [Mass fraction] 47 % [facility] MAGNESIUMon 11-15-2021 Magnesium [Mass/Vol] 1.6 mg/dL [facility] No Panel Informationon 11-15 [facility] Interpretation and review of laboratory results Abnormal [facility] PROTIME-INRon 11-15-2021 INR Coag (PPP) [Relative time] 1.21 {INR} High [facility] Comment on above: 2.0-3.0 THERAPEUTIC RANGE 2.5-3.5 MECHANICAL VALVE RANGE Interpretation and review of laboratory results Abnormal [facility] PT Coag (PPP) [Time] 15.4 s [facility] RENAL FUNCTION PANELon 11-15 Albumin [Mass/Vol] 4.3 G/dl 3.5 - 5.0 G/dl [facility] Calcium [Mass/Vol] 9.7 mg/dL [facility] Chloride [Moles/Vol] 95 mmol/L Low [facility] CO2 [Moles/Vol] 29 mmol/L [facility] Creatinine [Mass/Vol] 0.68 mg/dL [facility] GFR COMMENT Average GFR for 50-5 9 years old = 93. [facility] Comment on above: Chronic Kidney disea se, GFR = <60. Kidney failure, GFR = <15. The GFR estimate is not adjusted for extreme body surface area or acute process, nor has it been validated for women or ethnic groups other than and . GFR/1.73 sq M.predicted among blacks MDRD (S/P/Bld) [Vol rate/Area] 156 mL/min/{1.73_m2} ml/min/1.73s q.m [facility] GFR/1.73 sq M.predicted among non-blacks MDRD (S/P/Bld) [Vol rate/Area] 129 mL/min/{1.73_m2} ml/min/1.73s q.m [facility] Glucose post fast [Mass/Vol] 94 mg/dL [facility] Comment on above: NORMAL <100 mg/dL PREDIABETES 101-126 mg/dL DIABETES 126 mg/dL or higher Interpretation and review of laboratory results Abnormal [facility] Phosphate [Mass/Vol] 3.9 mg/dL [facility] Potassium [Moles/Vol] 3.6 mmol/L [facility] Sodium [Moles/Vol] 137 mmol/L [facility] Urea nitrogen [Mass/Vol] 23 mg/dL High [facility] SEDIMENTATION RATE, AUTOMATE Don 11-15-2021 ESR (Bld) [Velocity] 25 mm/h High [facility] Interpretation and review of laboratory results Abnormal [facility] ISSAC MULTIPLEX SCRN WITH REFL EXon 11-14-2021 Nuclear Ab Ql (S) Negative [facility] Comment on above: Reference range: Neg ative PERFORMED AT [facility] C REACTIVE PROTEINon 022 CRP [Mass/Vol] 19.7 mg/L High 0 - 10.0 MG/L [facility] CBC, EDIF, PLATELETon 2021 ABSOLUTE BASOPHIL COUNT 0.0 10*3/uL 0.0 - 0.2 10*3/uL [facility] DIFFERENTIAL TYPE MANUAL DIFF % [facility] Comment on above: CORRECTED ON 11/14 A T 0734: PREVIOUSLY REPORTED AUTO DIFF Eosinophils (Bld) [#/Vol] 0.10 10*3/uL 0.0 - 0.7 10*3/uL [facility] Erythrocyte distribution width (RBC) [Ratio] 16.4 % High 11.5 - 14.5 % [facility] Hematocrit (Bld) [Volume fraction] 29.0 % Low 42.0 - 52.0 % [facility] Hemoglobin (Bld) [Mass/Vol] 9.3 g/dL Low [facility] Interpretation and review of laboratory results Abnormal [facility] Lymphocytes (Bld) [#/Vol] 0.60 10*3/uL Low 1.2 - 3.4 10*3/uL [facility] Lymphocytes/100 WBC (Bld) 44 % 20.0 - 55.0 % [facility] Comment on above: CORRECTED ON 11/14 A T 0734: PREVIOUSLY REPORTED 28.1 MCH (RBC) [Entitic mass] 22.2 pg Low 26.0 - 35.0 PG [facility] MCHC (RBC) [Mass/Vol] 32.2 g/dL [facility] MCV (RBC) [Entitic vol] 69.0 fL Low [facility] Monocytes (Bld) [#/Vol] 0.2 10*3/uL 0.0 - 0.7 10*3/uL [facility] Monocytes/100 WBC (Bld) 8 % 0.0 - 10.0 % [facility] Comment on above: CORRECTED ON 11/14 A T 0734: PREVIOUSLY REPORTED 7.9 Morphology Julián (Bld) [Interp] 2+ [facility] Comment on above: MICROCYTOSIS 2+ ANISOCYTE 1+ TARGET CELLS Neutrophils (Bld) [#/Vol] 1.4 10*3/uL 1.4 - 6.5 10*3/uL [facility] Neutrophils/100 WBC (Bld) 48 % 37.0 - 75.0 % [facility] Comment on above: CORRECTED ON 11/14 A T 0734: PREVIOUSLY REPORTED 61.2 Platelet mean volume (Bld) [Entitic vol] 9.0 fL [facility] Platelet morphology finding Nom (Bld) DECREASED [facility] Platelets (Bld) [#/Vol] 123 10*3/uL Low 130.0 - 400.0 10*3/uL [facility] RBC (Bld) [#/Vol] 4.20 10*6/uL 4.0 - 6.1 10*6/uL [facility] WBC (Bld) [#/Vol] 2.3 10*3/uL Low 3.6 - 11.0 10*3/uL [facility] CT Pulmonary arteries for pu lmonary [...] left atrial enlargement. LAD calcifications. 4. Splenomegaly. [facility] Radiology Study observation (narrative) [facility] CT Pulmonary arteries for pu lmonary embolusOrdered By: Leandro Rodriguez on 11-14-2021 [facility] Work Phone: FIBRINOGEN, CLOTTABLEon 10-21 Fibrinogen Coag (PPP) [Mass/Vol] 254.0 mg/dL 171 - 562 mg/dL [facility] HEPATIC FUNCTION PANELon Albumin [Mass/Vol] 4.1 g/dL [facility] ALP [Catalytic activity/Vol] 26 U/L Low [facility] ALT [Catalytic activity/Vol] 26 U/L [facility] AST [Catalytic activity/Vol] 30 U/L [facility] Bilirubin [Mass/Vol] 1.8 mg/dL High [facility] Bilirubin.direct [Mass/Vol] 0.3 mg/dL High [facility] Protein [Mass/Vol] 6.9 g/dL [facility] HEPATITIS A, B, Con 11-15-19 22 HBV surface Ag IA Ql Negative NEGATIVE [facility] Hep A AB (IGG + IGM) Positive Abnormal NEGATIVE [facility] Comment on above: Specimen is positive for HAV, sent to reference lab for HAVAb, IgM. Positive indicates a reactive sample and the presence of HAV Ab, individual has been previously infected or is presumed to be immune to HAV infection. HEP B CORE AB,TOTAL(IGG+IGM) Reactive Abnormal NEGATIVE [facility] Comment on above: Specimen is presumed reactive for HBc Ab Hep B Surf AB Negative Abnormal POSITIVE [facility] Comment on above: Clinical Interpretation of Immune Status Negative: patient is considered to be not immune to infection with HBV Intermediate: unable to determine if anti-HBs is present at levels consistent with immunity Positive: anti-HBs detected, patient is considered to be immune to infection with HBV HEP C AB Reactive Abnormal NEGATIVE [facility] Comment on above: HCV Ab IgG detected, patient is presumed to be infected, state or associated disease not determined Interpretation and review of laboratory results Abnormal [facility] MAGNESIUMon 11-14-2021 Magnesium [Mass/Vol] 1.9 mg/dL [facility] No Panel Informationon 11-14 Interpretation and review of laboratory results Abnormal [facility] PROCALCITONINon 11-14-2021 PROCALCITONIN 0.06 ng/mL 0.00 - 0.49 ng/mL [facility] Comment on above: PCT Interpretation Concentrations under 0.5 ng/mL do not exclude local infections of systemic infections in their initial stages (e.g. under six hours from onset of illness). PCT concentrations between 0.5 and 2.0 ng/mL should be interpreted with consideration of patient's history. In this range, it is recommended to retest PCT within 6 to 24 hours. Testing performed at [place], [place] [address] [facility] PROTIME-INRon 11-14-2021 INR Coag (PPP) [Relative time] 1.23 {INR} High [facility] Comment on above: 2.0-3.0 THERAPEUTIC RANGE 2.5-3.5 MECHANICAL VALVE RANGE Interpretation and review of laboratory results Abnormal [facility] PT Coag (PPP) [Time] 15.7 s [facility] RENAL FUNCTION PANELon 11-14 Albumin [Mass/Vol] 4.1 G/dl 3.5 - 5.0 G/dl [facility] Calcium [Mass/Vol] 8.9 mg/dL [facility] Chloride [Moles/Vol] 103 mmol/L [facility] CO2 [Moles/Vol] 25 mmol/L [facility] Creatinine [Mass/Vol] 0.58 mg/dL Low [facility] GFR COMMENT Average GFR for 50-5 9 years old = 93. [facility] Comment on above: Chronic Kidney disea se, GFR = <60. Kidney failure, GFR = <15. The GFR estimate is not adjusted for extreme body surface area or acute process, nor has it been validated for women or ethnic groups other than and . GFR/1.73 sq M.predicted among blacks MDRD (S/P/Bld) [Vol rate/Area] 187 mL/min/{1.73_m2} ml/min/1.73s q.m [facility] GFR/1.73 sq M.predicted among non-blacks MDRD (S/P/Bld) [Vol rate/Area] 155 mL/min/{1.73_m2} ml/min/1.73s q.m [facility] Glucose post fast [Mass/Vol] 94 mg/dL [facility] Comment on above: NORMAL <100 mg/dL PREDIABETES 101-126 mg/dL DIABETES 126 mg/dL or higher Interpretation and review of laboratory results Abnormal [facility] Phosphate [Mass/Vol] 2.9 mg/dL [facility] Potassium [Moles/Vol] 4.2 mmol/L [facility] Sodium [Moles/Vol] 136 mmol/L [facility] Urea nitrogen [Mass/Vol] 25 mg/dL High [facility] SEDIMENTATION RATE, AUTOMATE Don 11-14-2021 ESR (Bld) [Velocity] 15 mm/h [facility] URIC ACIDon 11-14-2021 Urate [Mass/Vol] 5.4 mg/dL [facility] XR Foot - right 3 Viewson IMPRESSION: [...] have mildly progressed as compared to 03/02/2018. [facility] Radiology Study observation (narrative) [facility] XR Foot - right 3 ViewsOrder ed By: Sofía Corral on 11-14-2021 [facility] Work Phone: B-TYPE NATRIURETIC PEPTIDE ( BRAIN)on 11-13-2021 Natriuretic peptide B (Bld) [Mass/Vol] 72 pg/mL 0 - 100 pg/mL [facility] CBC, EDIF, PLATELETon 2021 ABSOLUTE BASOPHIL COUNT 0.0 10*3/uL 0.0 - 0.2 10*3/uL [facility] Basophils/100 WBC (Bld) 0 % 0.0 - 2.0 % [facility] Comment on above: CORRECTED ON 11/13 A T 1129: PREVIOUSLY REPORTED 0.3 Differential cell count method Nom (Bld) AUTO DIFF % [facility] Eosinophils (Bld) [#/Vol] 0.10 10*3/uL 0.0 - 0.7 10*3/uL [facility] Eosinophils/100 WBC (Bld) 2 % 0.0 - 11.0 % [facility] Comment on above: CORRECTED ON 11/13 A T 1129: PREVIOUSLY REPORTED 1.9 Erythrocyte distribution width (RBC) [Ratio] 16.1 % High 11.5 - 14.5 % [facility] Hematocrit (Bld) [Volume fraction] 31.2 % Low 42.0 - 52.0 % [facility] Hemoglobin (Bld) [Mass/Vol] 9.9 g/dL Low [facility] Interpretation and review of laboratory results Abnormal [facility] Lymphocytes (Bld) [#/Vol] 0.60 10*3/uL Low 1.2 - 3.4 10*3/uL [facility] Lymphocytes/100 WBC (Bld) 18 % Low 20.0 - 55.0 % [facility] Comment on above: CORRECTED ON 11/13 A T 1129: PREVIOUSLY REPORTED 18.4 MCH (RBC) [Entitic mass] 22.0 pg Low 26.0 - 35.0 PG [facility] MCHC (RBC) [Mass/Vol] 31.8 g/dL [facility] MCV (RBC) [Entitic vol] 69.4 fL Low [facility] Monocytes (Bld) [#/Vol] 0.3 10*3/uL 0.0 - 0.7 10*3/uL [facility] Monocytes/100 WBC (Bld) 11 % High 0.0 - 10.0 % [facility] Comment on above: CORRECTED ON 11/13 A T 1129: PREVIOUSLY REPORTED 10.6 Morphology Julián (Bld) [Interp] 1+ [facility] Comment on above: ANISOCYTE 1+ POIKILOCYTE 1+ TARGET CELLS 1+ MICROCYTOSIS Neutrophils (Bld) [#/Vol] 2.1 10*3/uL 1.4 - 6.5 10*3/uL [facility] Neutrophils/100 WBC (Bld) 69 % 37.0 - 75.0 % [facility] Comment on above: CORRECTED ON 11/13 A T 1129: PREVIOUSLY REPORTED 68.8 Platelet mean volume (Bld) [Entitic vol] 8.2 fL [facility] Platelet morphology finding Nom (Bld) DECREASED [facility] Platelets (Bld) [#/Vol] 101 10*3/uL Low 130.0 - 400.0 10*3/uL [facility] RBC (Bld) [#/Vol] 4.49 10*6/uL 4.0 - 6.1 10*6/uL [facility] WBC (Bld) [#/Vol] 3.0 10*3/uL Low 3.6 - 11.0 10*3/uL [facility] ABSOLUTE BASOPHIL COUNT 0.0 10*3/uL 0.0 - 0.2 10*3/uL [facility] Basophils/100 WBC (Bld) 0.3 % 0.0 - 2.0 % [facility] Differential cell count method Nom (Bld) AUTO DIFF % [facility] Eosinophils (Bld) [#/Vol] 0.10 10*3/uL 0.0 - 0.7 10*3/uL [facility] Eosinophils/100 WBC (Bld) 2.8 % 0.0 - 11.0 % [facility] Erythrocyte distribution width (RBC) [Ratio] 16.0 % High 11.5 - 14.5 % [facility] Hematocrit (Bld) [Volume fraction] 34.5 % Low 42.0 - 52.0 % [facility] Hemoglobin (Bld) [Mass/Vol] 10.9 g/dL Low [facility] Interpretation and review of laboratory results Abnormal [facility] Lymphocytes (Bld) [#/Vol] 0.80 10*3/uL Low 1.2 - 3.4 10*3/uL [facility] Lymphocytes/100 WBC (Bld) 25.2 % 20.0 - 55.0 % [facility] MCH (RBC) [Entitic mass] 22.1 pg Low 26.0 - 35.0 PG [facility] MCHC (RBC) [Mass/Vol] 31.6 g/dL [facility] MCV (RBC) [Entitic vol] 70.0 fL Low [facility] Monocytes (Bld) [#/Vol] 0.4 10*3/uL 0.0 - 0.7 10*3/uL [facility] Monocytes/100 WBC (Bld) 11.6 % High 0.0 - 10.0 % [facility] Neutrophils (Bld) [#/Vol] 2.0 10*3/uL 1.4 - 6.5 10*3/uL [facility] Neutrophils/100 WBC (Bld) 60.1 % 37.0 - 75.0 % [facility] Platelet mean volume (Bld) [Entitic vol] 8.4 fL [facility] Platelets (Bld) [#/Vol] 118 10*3/uL Low 130.0 - 400.0 10*3/uL [facility] RBC (Bld) [#/Vol] 4.93 10*6/uL 4.0 - 6.1 10*6/uL [facility] WBC (Bld) [#/Vol] 3.3 10*3/uL Low 3.6 - 11.0 10*3/uL [facility] CKon 11-13-2021 CK [Catalytic activity/Vol] 69 U/L [facility] COMPREHENSIVE METABOLIC PANE Ras 11-13-2021 Albumin [Mass/Vol] 3.5 G/dl 3.5 - 5.0 G/dl [facility] Albumin/Globulin [Mass ratio] 1.1 {ratio} Low [facility] ALP [Catalytic activity/Vol] 46 U/L [facility] ALT [Catalytic activity/Vol] 29 U/L [facility] AST [Catalytic activity/Vol] 29 U/L [facility] Bilirubin [Mass/Vol] 1.0 mg/dL [facility] Calcium [Mass/Vol] 8.4 mg/dL [facility] Chloride [Moles/Vol] 107 mmol/L [facility] CO2 [Moles/Vol] 26 mmol/L [facility] Creatinine [Mass/Vol] 1.12 mg/dL [facility] GFR COMMENT Average GFR for 50-5 9 years old = 93. [facility] Comment on above: Chronic Kidney disea se, GFR = <60. Kidney failure, GFR = <15. The GFR estimate is not adjusted for extreme body surface area or acute process, nor has it been validated for women or ethnic groups other than and . GFR/1.73 sq M.predicted among blacks MDRD (S/P/Bld) [Vol rate/Area] 88 mL/min/{1.73_m2} ml/min/1.73s q.m [facility] GFR/1.73 sq M.predicted among non-blacks MDRD (S/P/Bld) [Vol rate/Area] 72 mL/min/{1.73_m2} ml/min/1.73s q.m [facility] Glucose post fast [Mass/Vol] 143 mg/dL High [facility] Comment on above: NORMAL <100 mg/dL PREDIABETES 101-126 mg/dL DIABETES 126 mg/dL or higher Interpretation and review of laboratory results Abnormal [facility] Potassium [Moles/Vol] 4.2 mmol/L [facility] Protein [Mass/Vol] 6.7 g/dL [facility] Sodium [Moles/Vol] 140 mmol/L [facility] Urea nitrogen [Mass/Vol] 30 mg/dL High [facility] D-DIMER,QUANTITATIVEon 11-13 Fibrin D-dimer FEU (PPP) [Mass/Vol] 9.66 Critically high <0.50 mg/L FEU [facility] Comment on above: If result is greater than the cutoff value of 0.50 mg/L then the potential for PE or DVT exists. Other conditions exist which may cause a falsely elevated level. Please correlate clinically, including radiological findings and other clinical parameters. Result called to read back by: Sandra CANSECO 11/13/2021 @ 11:02 by [facility] Interpretation and review of laboratory results Abnormal [facility] MAGNESIUMon 11-13-2021 Magnesium [Mass/Vol] 2.1 mg/dL [facility] RHEUMATOID FACTORon 11-14-19 Interpretation and review of laboratory results Abnormal [facility] RHEUMATOID FACTOR 441.1 High <12 Iu/mL [facility] SCREEN: MRSA ONLY, NARES (IS OLATION SCREEN)on 11-13-2021 Interpretation and review of laboratory results Abnormal [facility] MRSA isol Org specific cx Ql (Nose) Not detected NOT DETECTED [facility] STAPHYOCOCCUS AUREUS BY PCR Detected Abnormal NOT DETECTED [facility] Comment on above: Testing performed at [place], [place] [address] [facility] US.doppler Extremity vessels - bilateralon 11-13-2021 IMPRESSION: [...] edema. IMPRESSION IMPRESSION: No visualized venous thrombus [facility] Radiology Study observation (narrative) [facility] ALCOHOL (ETHANOL),BLOODon Ethanol [Mass/Vol] mg/dL [facility] Comment on above: INTOXICATION >80 MG/DL FATAL >400 MG/DL CBC, EDIF, PLATELETon 2021 ABSOLUTE BASOPHIL COUNT 0.0 10*3/uL 0.0 - 0.2 10*3/uL [facility] Basophils/100 WBC (Bld) 0.5 % 0.0 - 2.0 % [facility] Differential cell count method Nom (Bld) AUTO DIFF % [facility] Eosinophils (Bld) [#/Vol] 0.10 10*3/uL 0.0 - 0.7 10*3/uL [facility] Eosinophils/100 WBC (Bld) 1.5 % 0.0 - 11.0 % [facility] Erythrocyte distribution width (RBC) [Ratio] 16.0 % High 11.5 - 14.5 % [facility] Hematocrit (Bld) [Volume fraction] 34.1 % Low 42.0 - 52.0 % [facility] Hemoglobin (Bld) [Mass/Vol] 11.0 g/dL Low [facility] Interpretation and review of laboratory results Abnormal [facility] Lymphocytes (Bld) [#/Vol] 1.10 10*3/uL Low 1.2 - 3.4 10*3/uL [facility] Lymphocytes/100 WBC (Bld) 16.4 % Low 20.0 - 55.0 % [facility] MCH (RBC) [Entitic mass] 22.2 pg Low 26.0 - 35.0 PG [facility] MCHC (RBC) [Mass/Vol] 32.3 g/dL [facility] MCV (RBC) [Entitic vol] 68.9 fL Low [facility] Monocytes (Bld) [#/Vol] 0.8 10*3/uL High 0.0 - 0.7 10*3/uL [facility] Monocytes/100 WBC (Bld) 13.1 % High 0.0 - 10.0 % [facility] Neutrophils (Bld) [#/Vol] 4.4 10*3/uL 1.4 - 6.5 10*3/uL [facility] Neutrophils/100 WBC (Bld) 68.5 % 37.0 - 75.0 % [facility] Platelet mean volume (Bld) [Entitic vol] 7.8 fL [facility] Platelets (Bld) [#/Vol] 146 10*3/uL 130.0 - 400.0 10*3/uL [facility] RBC (Bld) [#/Vol] 4.95 10*6/uL 4.0 - 6.1 10*6/uL [facility] WBC (Bld) [#/Vol] 6.5 10*3/uL 3.6 - 11.0 10*3/uL [facility] COMPREHENSIVE METABOLIC PANE Ras 11-12-2021 Albumin [Mass/Vol] 3.3 G/dl Low 3.5 - 5.0 G/dl [facility] Albumin/Globulin [Mass ratio] 0.9 {ratio} Low [facility] ALP [Catalytic activity/Vol] 46 U/L [facility] ALT [Catalytic activity/Vol] 32 U/L [facility] AST [Catalytic activity/Vol] 32 U/L [facility] Bilirubin [Mass/Vol] 0.9 mg/dL [facility] Calcium [Mass/Vol] 8.4 mg/dL [facility] Chloride [Moles/Vol] 98 mmol/L [facility] CO2 [Moles/Vol] 24 mmol/L [facility] Creatinine [Mass/Vol] 2.54 mg/dL High [facility] GFR COMMENT Average GFR for 50-5 9 [...] (S/P/Bld) [Vol rate/Area] 34 mL/min/{1.73_m2} ml/min/1.73s q.m [facility] GFR/1.73 sq M.predicted among non-blacks MDRD (S/P/Bld) [Vol rate/Area] 28 mL/min/{1.73_m2} ml/min/1.73s q.m [facility] Glucose post fast [Mass/Vol] 133 mg/dL High [facility] Comment on above: NORMAL <100 mg/dL PREDIABETES 101-126 mg/dL DIABETES 126 mg/dL or higher Interpretation and review of laboratory results Abnormal [facility] Potassium [Moles/Vol] 4.2 mmol/L [facility] Protein [Mass/Vol] 7.0 g/dL [facility] Sodium [Moles/Vol] 131 mmol/L Low [facility] Urea nitrogen [Mass/Vol] 40 mg/dL High [facility] CT Abdomen and Pelvis WO con [...] values is recommended to evaluate for pancreatitis. [facility] Radiology Study observation (narrative) [facility] CT Abdomen and Pelvis WO con trastOrdered By: Paulino Marcos on 11-12-2021 [facility] Work Phone: LACTATE, BLOODon 11-12-2021 Lactate [Moles/Vol] 1.7 mmol/L 0.7 - 2. 0 mmol/L [facility] LIPASEon 11-12-2021 Lipase [Catalytic activity/Vol] 56 U/L 23 - 300 U/L [facility] MAGNESIUMon 11-12-2021 Magnesium [Mass/Vol] 2.0 mg/dL [facility] NOVEL CORONAVIRUS LAB 1 - NA SOPHARYNGEALon 11-12-2021 NARRATIVE -1 This test was perfor med using isothermal HERMAN and has been approved as Emergency Use Authorization (EUA) for the qualitative detection [id number] nucleic acid. [facility] SARS-CoV-2 (COVID-19) RNA HERMAN+probe Ql (Unsp spec) Not detected NOT DETECTED [facility] Comment on above: Negative results do not [...] patient is critically ill or clinically deteriorating. [facility] No Panel Informationon 11-12 Interpretation and review of laboratory results Abnormal [facility] PROTIME-INRon 11-12-2021 INR Coag (PPP) [Relative time] 1.11 {INR} [facility] Comment on above: 2.0-3.0 THERAPEUTIC RANGE 2.5-3.5 MECHANICAL VALVE RANGE Testing performed at [place] [address] Interpretation and review of laboratory results Abnormal [facility] PT Coag (PPP) [Time] 14.5 s [facility] PTTon 11-12-2021 aPTT Coag (Bld) [Time] 31.9 s [facility] Comment on above: CARDIAC AND PE/DVT THERAPUTIC RANGE 69-97 SEC VASCULAR/THREATENED LIMB THERAPUTIC RANGE 80-112 SEC Testing performed at [address] Portable XR Chest Views APon 11-12-2021 [...] prior study, the lungs are now clear. [facility] Radiology Study observation (narrative) [facility] Portable XR Chest Views APOr dered By: Bryson Smith on 11-12-2021 [facility] Work Phone: TOXICOLOGY DRUG SCREEN, URIN Jonathan 11-12-2021 Amphetamine (U) [Mass/Vol] Negative NEGATIVE NG/ML [facility] Comment on above: <500 ng/ml CUTOFF Barbiturates Screen Ql (U) Negative NEGATIVE NG/ML [facility] Comment on above: <200 ng/ml CUTOFF Benzodiazepines Ql (U) Negative NEGATIVE NG/ML [facility] Comment on above: <150 ng/ml CUTOFF Benzoylecgonine Ql (U) Positive Abnormal NEGATIVE NG/ML [facility] Comment on above: <150 ng/ml CUTOFF *Unconfirmed Screening Result* Unconfirmed screening results are to be used only for medical treatment purposes. Buprenorphine Confirm (Qing) [Mass/Vol] Positive Abnormal NEGATIVE NG/ML [facility] Comment on above: <10 ng/ml CUTOFF *Unconfirmed Screening Result* Unconfirmed screening results are to be used only for medical treatment purposes. CORRECTED ON 11/12 AT 2103: PREVIOUSLY REPORTED NEGATIVE <10 ng/ml CUTOFF Cannabinoids Screen Ql (U) Positive Abnormal NEGATIVE NG/ML [facility] Comment on above: <50 ng/ml CUTOFF *Unconfirmed Screening Result* Unconfirmed screening results are to be used only for medical treatment purposes. Interpretation and review of laboratory results Abnormal [facility] Methadone Screen Ql (U) Negative NEGATIVE NG/ML [facility] Comment on above: <200 ng/ml CUTOFF Methamphetamine (U) [Mass/Vol] Negative NEGATIVE NG/ML [facility] Comment on above: <500 ng/ml CUTOFF Opiates Screen Ql (U) Negative NEGATIVE NG/ML [facility] Comment on above: <100 ng/ml CUTOFF oxyCODONE Ql (U) Negative NEGATIVE NG/ML [facility] Comment on above: <100 ng/ml CUTOFF Phencyclidine Screen method >25 ng/mL Ql (U) Negative NEGATIVE NG/ML [facility] Comment on above: <25 ng/ml CUTOFF Propoxyphene+Norprop oxyphene Screen Ql (U) Negative NEGATIVE NG/ML [facility] Comment on above: <300 ng/ml CUTOFF Tricyclic antidepressants Screen Ql (U) Negative NEGATIVE NG/ML [facility] Comment on above: <300 ng/ml CUTOFF [facility] TROPONIN I, HIGH SENSITIVITY on 11-12-2021 TROPONIN I, HIGH SENSITIVITY 4 pg/mL 0 - 20 pg/mL [facility] Comment on above: Indeterminant: >12 to 100 pg/mL female >20 to 100 pg/mL male Indicative of myocardial injury. Serial sampling is recommended, a change of greater than or equal to 20 pg/mL is indicative of acute coronary syndrome. URINALYSIS, MACROon 11-13-19 22 Bilirubin Ql (U) MODERATE Abnormal NEGATIVE [facility] Clarity (U) CLEAR CLEAR [facility] Color (U) YELLOW YELLOW [facility] Glucose Test strip (U) [Mass/Vol] Negative NEGATIVE mg/dl [facility] Hemoglobin Ql (U) Negative NEGATIVE [facility] Ketones (U) [Mass/Vol] 15 mg/dL Abnormal NEGATIVE [facility] Leukocyte esterase Test strip Ql (U) Negative NEGATIVE [facility] Nitrite Ql (U) Negative NEGATIVE [facility] pH (U) 5.5 [pH] [facility] Protein Ql (U) 100 mg/dl Abnormal NEGATIVE [facility] Specific gravity (U) [Rel density] 1.020 [facility] Urobilinogen (U) [Mass/Vol] 1.0 mg/dL [facility] URINE MICROSCOPICon 11-13-19 22 Bacteria LM.HPF (Urine sed) [#/Area] Negative NEGATIVE [facility] Casts LM.LPF (Urine sed) [#/Area] RARE Abnormal NONE /LPF [facility] Comment on above: HYALINE Crystals LM Nom (Urine sed) NONE NONE [facility] Epithelial cells LM Ql (Urine sed) 1 TO 5 /HPF [facility] Mucus Ql (Urine sed) TRACE Abnormal NEGATIVE [facility] RBC LM.HPF (Urine sed) [#/Area] Negative NEGATIVE /HPF [facility] Urine sediment comments LM Julián (Urine sed) CULTURE CRITERIA NOT MET, NO CULTURE PERFORMED. [facility] WBC LM.HPF (Urine sed) [#/Area] Negative NEGATIVE /HPF [facility] No Panel Informationon 10-07 [facility] IMPRESSION: 1. Remote ununited fracture deformity of [...] remote healed left rib fractures are present. [facility] XR KNEE LEFT 3 VIEWSon 10-07 IMPRESSION: [...] proximal fibula. 3. Mild tricompartmental degenerative changes. [facility] Radiology Study observation (narrative) [facility] XR RIBS LEFTon 10-07-2021 Radiology Study observation (narrative) [facility] XR SHOULDER LEFT MIN 2 VIEWS on 10-07-2021 Radiology Study observation (narrative) [facility] ECHOCARDIOGRAM COMPLETE W CO NTRASTon 06-04-2021 ECHOCARDIOGRAM COMPLETE W CONTRAST Patient Info Name: CARMEN GILMAN Age: 55 years : 1965 Gender: Male Ht: 173 cm Wt: 118 kg BSA: 2.43 m2 HR: 64 bpm BP: 100 / 52 mmHg Heart Rhythm: Sinus Rhythm Technical Quality: Technically difficult, Poor Exam Date: 06/04/2021 6:48 AM Patient Status: 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 Normal [facility] COVID-19, MOLECULARon 2020 SARS-CoV-2 (COVID-19) RNA HERMAN+probe Ql (Unsp spec) Not detected Normal Not Detected [facility] Comment on above: Order Comment: This test [...] at the following links: For Healthcare Providers: https://www.fda.gov/media/617788/download For Patients: https://www.fda.gov/media/943764/download Performed By: #### L [id number] #### [facility] [address], [place] [address] Jack Mendoza M.D. [id number] CT ANGIOGRAM CHEST ABDOMEN P ELVISon 06-03-2021 CT ANGIOGRAM CHEST ABDOMEN PELVIS EXAMINATION: CT ANGIOGRAM CHEST ABDOMEN PELVIS 06/03/2021 HISTORY: ORDERING SYSTEM PROVIDED HISTORY: Sepsis, TECHNOLOGIST PROVIDED HISTORY: Illness/Other Reason for Exam: Pt found down Encounter Type: Initial Additional Signs and Symptoms: ORDERING SYSTEM PROVIDED DIAGNOSIS CODES: J96.00 Acute respiratory failure, unspecified whether with hypoxia or hypercapnia ([facility]) R41.82 Altered mental status, unspecified altered mental status type R79.89 Elevated lactic acid level F19.10 Polysubstance abuse (HCC) R09.2 Respiratory arrest (HCC) J96.02 Acute hypercapnic respiratory failure (HCC) J96.01 Acute hypoxemic respiratory failure (HCC) J44.1 COPD with acute exacerbation ([facility]) R73.9 Hyperglycemia I10 Hypertension, unspecified type D72.829 Leukocytosis, unspecified type F12.10 Marijuana abuse F14.10 Nondependent cocaine abuse ([facility]) E87.2 Respiratory acidosis COMPARISON: CT pulmonary angiogram, [...] The heart size seems normal. There are [id number] coronary artery calcifications. The pericardium appears normal. [...] but no secondary signs of acute appendicitis. [employer]Not[employer] Workstation ID: [id number] Dictated by: LARRY SMITH on TueJun 04, 2021 1:15:48 AM EDT Transcribed by: ROSA GAMBLE on TueJun 04, 2021 1:46:50 AM EDT Finalized by: LARRY SMITH on [facility] Jun 04, 2021 2:02:27 AM EDT Normal [facility] Comment on above: Order Comment: Injur [...] 03, 2021 4:21:22 PM EDT Transcribed by: PRSAHANTH KUNZ on TueJun 03, 2021 4:21:22 PM EDT Finalized by: PRASHANTH KUNZ on TueJun 03, 2021 4:21:22 PM EDT Normal [facility] Comment on above: Order Comment: Injur [...] within normal limits for the patient's age. [facility] Eran Barksdale MD - 04/04/2021 EXAM: XR [...] great toe. FOLLOW-UP: Follow-up as clinically indicated. [facility] Radiology Study observation (narrative) [facility] XR FOOT LEFT 3 VIEWSOrdered By: Eran Barksdale on 04-04-2021 [facility] Work Phone: XR Toe(s) Left 2+ ViewsOrder ed By: Saulo Joseph on 02-02-2021 1. No identifiable radiopaque foreign bodies are identified. 2. No definite fractures or dislocations. 3. Degenerative changes as described above. VALERIEV/karyn Workstation ID: [id number] [facility] EXAMINATION: XR TOE(S) LEFT 2+ VIEWS [...] There is no obvious fracture or dislocation. [facility] Interface, Rad In Fu ji Speechq [...] as described above. VALERIEV/manuelr Workstation ID: [id number] [facility] Basic Metabolic Panelon 11-20 Anion gap [Moles/Vol] 8 mmol/L Low 10 - 20 mmol/L [facility] Calcium [Mass/Vol] 8.2 mg/dL Low 8.4 - 10. 2 mg/dL [facility] Chloride [Moles/Vol] 107 mmol/L 98 - 10 8 mmol/L [facility] Creatinine [Mass/Vol] 0.73 mg/dL 0.50 - 1.30 [facility] GFR/1.73 sq M predicted among non-blacks MDRD (S/P/Bld) [Vol rate/Area] The eGFR should be used for monitoring renal function only and not for medication dosing. [facility] GFR/1.73 sq M.predicted CKD-EPI (S/P/Bld) [Vol rate/Area] 105 >=60 mL/min/1.73 m2 [facility] Glucose [Mass/Vol] 203 mg/dL High 65 - 99 mg/dL [facility] HCO3 [Moles/Vol] 26 mmol/L 21 - 32 mmol/L [facility] Interpretation and review of laboratory results Abnormal [facility] Potassium [Moles/Vol] 4.3 mmol/L 3.5 - 5.1 mmol/L [facility] Sodium [Moles/Vol] 137 mmol/L 135 - 145 mmol/L [facility] Urea nitrogen [Mass/Vol] 18 mg/dL 8 - 25 mg/dL [facility] Urea nitrogen/Creatinine [Mass ratio] 24.7 mg/mg High [facility] CBC WITH AUTO DIFFERENTIALon 12-04-2020 Basophils (Bld) [#/Vol] 0.00 10*3/uL [facility] Basophils/100 WBC (Bld) 0.0 % [facility] Eosinophils (Bld) [#/Vol] 0.00 10*3/uL [facility] Eosinophils/100 WBC (Bld) 0.0 % [facility] Erythrocyte distribution width (RBC) [Entitic vol] 16.2 % High 11.6 - 14.8 % [facility] Hematocrit (Bld) [Volume fraction] 32.9 % Low 41.0 - 53.0 % [facility] Hemoglobin (Bld) [Mass/Vol] 10.5 g/dL Low 13.5 - 17.5 g/dL [facility] Immature granulocytes (Bld) [#/Vol] 0.04 10*3/uL [facility] Immature granulocytes/100 WBC (Bld) 0.80 % [facility] Comment on above: The IG parameter is the percentage of metamyelocytes, myelocytes and promyelocytes. An immature granulocyte count (IG) of 1% or more suggests the possibility of infection, an IG count of 3% is very likely related to an infection. Interpretation and review of laboratory results Abnormal [facility] Lymphocytes (Bld) [#/Vol] 0.41 10*3/uL Low [facility] Lymphocytes/100 WBC (Bld) 8.0 % [facility] MCH (RBC) [Entitic mass] 22.5 pg Low 26.0 - 34.0 pg [facility] MCHC (RBC) [Mass/Vol] 31.9 g/dL 31.0 - 37.0 g/dL [facility] MCV (RBC) [Entitic vol] 70.6 fL Low 80.0 - 100.0 fL [facility] Monocytes (Bld) [#/Vol] 0.10 10*3/uL Low [facility] Monocytes/100 WBC (Bld) 1.9 % [facility] Neutrophils (Bld) [#/Vol] 4.60 10*3/uL [facility] Neutrophils/100 WBC (Bld) 89.3 % [facility] Platelet mean volume (Bld) [Entitic vol] 9.4 fL 9.4 - 12.4 fL [facility] Platelets (Bld) [#/Vol] 100 10*3/uL Low [facility] RBC (Bld) [#/Vol] 4.66 10*6/uL [facility] WBC (Bld) [#/Vol] 5.15 10*3/uL [facility] BMPon 12-03-2020 Anion gap [Moles/Vol] 9 mmol/L Low 10 - 20 mmol/L [facility] Calcium [Mass/Vol] 8.2 mg/dL Low 8.4 - 10. 2 mg/dL [facility] Chloride [Moles/Vol] 105 mmol/L 98 - 10 8 mmol/L [facility] Creatinine [Mass/Vol] 0.64 mg/dL 0.50 - 1.30 [facility] GFR/1.73 sq M predicted among non-blacks MDRD (S/P/Bld) [Vol rate/Area] The eGFR should be used for monitoring renal function only and not for medication dosing. [facility] GFR/1.73 sq M.predicted CKD-EPI (S/P/Bld) [Vol rate/Area] 111 >=60 mL/min/1.73 m2 [facility] Glucose [Mass/Vol] 126 mg/dL High 65 - 99 mg/dL [facility] HCO3 [Moles/Vol] 27 mmol/L 21 - 32 mmol/L [facility] Interpretation and review of laboratory results Abnormal [facility] Potassium [Moles/Vol] 3.8 mmol/L 3.5 - 5.1 mmol/L [facility] Sodium [Moles/Vol] 137 mmol/L 135 - 145 mmol/L [facility] Urea nitrogen [Mass/Vol] 15 mg/dL 8 - 25 mg/dL [facility] Urea nitrogen/Creatinine [Mass ratio] 23.4 mg/mg High [facility] CBC WITH AUTO DIFFERENTIALon 12-03-2020 Basophils (Bld) [#/Vol] 0.01 10*3/uL [facility] Basophils/100 WBC (Bld) 0.2 % [facility] Eosinophils (Bld) [#/Vol] 0.03 10*3/uL [facility] Eosinophils/100 WBC (Bld) 0.5 % [facility] Erythrocyte distribution width (RBC) [Entitic vol] 16.3 % High 11.6 - 14.8 % [facility] Hematocrit (Bld) [Volume fraction] 33.1 % Low 41.0 - 53.0 % [facility] Hemoglobin (Bld) [Mass/Vol] 10.7 g/dL Low 13.5 - 17.5 g/dL [facility] Immature granulocytes (Bld) [#/Vol] 0.01 10*3/uL [facility] Immature granulocytes/100 WBC (Bld) 0.20 % [facility] Comment on above: The IG parameter is the percentage of metamyelocytes, myelocytes and promyelocytes. An immature granulocyte count (IG) of 1% or more suggests the possibility of infection, an IG count of 3% is very likely related to an infection. Lymphocytes (Bld) [#/Vol] 0.50 10*3/uL Low [facility] Lymphocytes/100 WBC (Bld) 8.7 % [facility] MCH (RBC) [Entitic mass] 22.7 pg Low 26.0 - 34.0 pg [facility] MCHC (RBC) [Mass/Vol] 32.3 g/dL 31.0 - 37.0 g/dL [facility] MCV (RBC) [Entitic vol] 70.3 fL Low 80.0 - 100.0 fL [facility] Monocytes (Bld) [#/Vol] 0.46 10*3/uL [facility] Monocytes/100 WBC (Bld) 8.0 % [facility] Neutrophils (Bld) [#/Vol] 4.73 10*3/uL [facility] Neutrophils/100 WBC (Bld) 82.4 % [facility] Platelet mean volume (Bld) [Entitic vol] 9.5 fL 9.4 - 12.4 fL [facility] Platelets (Bld) [#/Vol] 101 10*3/uL Low [facility] RBC (Bld) [#/Vol] 4.71 10*6/uL [facility] WBC (Bld) [#/Vol] 5.74 10*3/uL [facility] COVID-19/Influenza A,B Molec ularon 12-03-2020 Influenza A Not Detected [facility] Influ[facility] B Not Detected Not [facility] Interpretation and review of laboratory results Normal [facility] SARS-CoV-2 Not Detected Not Detected [facility] Comment on above: This test was perfor med under the FDA's Emergency Use Authorization (EUA). Testing was performed using the Xpert Xpress SARS-CoV-2 RT-PCR WALTOP assay on the [employer] Dx platform. This test has not been approved for use in asymptomatic patients and its performance in this patient population has not been evaluated. Negative results do not rule out the presence of SARS-CoV-2/COVID-19. Fact sheets for this EUA can be found at the following links: For Healthcare Providers: https://www.fda.gov/media/802797/download For Patients: https://www.fda.gov/media/855241/download ECG 12-LEADon 12-03-2020 Atrial Rate 86 BPM [facility] P [place] 72 degrees [facility] P-R Interval 148 ms [facility] Q-T Interval 372 ms [facility] QRS Duration 82 ms [facility] QTC Calculation (Bezet) 445 ms [facility] R [place] 56 degrees [facility] T [place] 56 degrees [facility] Ventricular Rate [address] [facility] th Normal sinus rhythm Normal ECG ECG Cart Interpretation see physician note for interpretation. Confirmed by Whit Pearson ([id number]) on 12/03/2020 8:55:18 PM [facility] Gold Topo 12-03-2020 Extra Tube Hold for add-ons. [facility] Comment on above: Auto resulted. Lactic Acid, Plasmaon 2020 Interpretation and review of laboratory results Normal [facility] Lactate [Moles/Vol] 1.3 mmol/L 0.6 - 2. 0 mmol/L [facility] Light Blue Topon 12-03-2020 Extra Tube Hold for add-ons. [facility] Comment on above: Auto resulted. MORPHOLOGYon 12-03-2020 Platelets LM Ql (Bld) Decreased Abnormal Normal [facility] RBC morphology finding Nom (Bld) See Comment [facility] Comment on above: RBC Indices confirme d with manual peripheral smear review. Otheron 04-14-2021 Interpretation and review of laboratory results Abnormal [facility] POC Venous Blood Gaseson Base Excess, Kojo 0 [facility] th CO2 (BldV) [Partial pressure] 42.3 mm[Hg] [facility] HCO3 (Bld) [Moles/Vol] 25.5 mmol/L 24.0 - 28.0 mmol/L [facility] Hematocrit (Bld) [Volume fraction] 36 % Low 41 - 53 % [facility] Hemoglobin (Bld) [Mass/Vol] 12.2 g/dL Low 13.5 - 17.5 g/dL [facility] Interpretation and review of laboratory results Abnormal [facility] Oxygen (BldV) [Partial pressure] 54 mm[Hg] High [facility] Oxygen saturation in Venous blood 87.0 % High 40.0 - 70.0 % [facility] [facility] pH (BldV) 7.39 [pH] [facility] TROPONINon 12-03-2020 Troponin I.cardiac [Mass/Vol] No biomarker evidence of cardiac injury. [facility] Troponin I.cardiac [Mass/Vol] ng/mL <=45 ng/L [facility] Troponin I.cardiac [Mass/Vol] No biomarker evidence of cardiac injury. [facility] Troponin I.cardiac [Mass/Vol] ng/mL <=45 ng/L [facility] Troponin I.cardiac [Mass/Vol] Normal [facility] Troponin I.cardiac [Mass/Vol] ng/mL <=45 ng/L [facility] XR Chest 1 Viewon 12-03-2020 EXAMINATION: [...] left glenohumeral joint with possible intraarticular bodies. [facility] Interface, Rad In Fu ji Speechq [...] bibasilar pleural effusions. No overt pulmonary edema. [facility] Workstation ID: [id number] [facility] Ill-defined ground-g lass opacity at the right lung base, may be accentuated by positioning. Cannot exclude underlying pneumonia. Small bibasilar pleural effusions. No overt pulmonary edema. /[employer] Workstation ID: [id number] [facility] CBC WITH AUTO DIFFERENTIALon 11-01-2020 Basophils (Bld) [#/Vol] 0.01 10*3/uL [facility] Basophils/100 WBC (Bld) 0.2 % [facility] Eosinophils (Bld) [#/Vol] 0.05 10*3/uL [facility] Eosinophils/100 WBC (Bld) 1.0 % [facility] Erythrocyte distribution width (RBC) [Entitic vol] 16.8 % High 11.6 - 14.8 % [facility] Hematocrit (Bld) [Volume fraction] 36.1 % Low 41.0 - 53.0 % [facility] Hemoglobin (Bld) [Mass/Vol] 11.3 g/dL Low 13.5 - 17.5 g/dL [facility] Immature granulocytes (Bld) [#/Vol] 0.03 10*3/uL [facility] Immature granulocytes/100 WBC (Bld) 0.60 % [facility] Comment on above: The IG parameter is the percentage of metamyelocytes, myelocytes and promyelocytes. An immature granulocyte count (IG) of 1% or more suggests the possibility of infection, an IG count of 3% is very likely related to an infection. Interpretation and review of laboratory results Abnormal [facility] Lymphocytes (Bld) [#/Vol] 0.79 10*3/uL Low [facility] Lymphocytes/100 WBC (Bld) 16.0 % [facility] MCH (RBC) [Entitic mass] 22.4 pg Low 26.0 - 34.0 pg [facility] MCHC (RBC) [Mass/Vol] 31.3 g/dL 31.0 - 37.0 g/dL [facility] MCV (RBC) [Entitic vol] 71.5 fL Low 80.0 - 100.0 fL [facility] Monocytes (Bld) [#/Vol] 0.35 10*3/uL [facility] Monocytes/100 WBC (Bld) 7.1 % [facility] Neutrophils (Bld) [#/Vol] 3.70 10*3/uL [facility] Neutrophils/100 WBC (Bld) 75.1 % [facility] Nucleated RBC (Bld) [#/Vol] 0.00 10*3/uL [facility] Nucleated RBC/100 WBC (Bld) [Ratio] 0.0 % [facility] Platelet mean volume (Bld) [Entitic vol] 9.4 fL 9.4 - 12.4 fL [facility] Platelets (Bld) [#/Vol] 123 10*3/uL Low [facility] RBC (Bld) [#/Vol] 5.05 10*6/uL [facility] WBC (Bld) [#/Vol] 4.93 10*3/uL [facility] Comprehensive Metabolic Pane ras 11-01-2020 Albumin [Mass/Vol] 3.2 g/dL 3.2 - 5.2 g/dL [facility] ALP [Catalytic activity/Vol] 79 U/L 40 - 150 U/L [facility] ALT [Catalytic activity/Vol] 48 U/L 14 - 65 U/L [facility] Anion gap [Moles/Vol] 7 mmol/L Low 10 - 20 mmol/L [facility] AST [Catalytic activity/Vol] 43 U/L 0 - 45 U/L [facility] Bilirubin [Mass/Vol] 1.2 mg/dL 0.0 - 1 .3 mg/dL [facility] Calcium [Mass/Vol] 8.5 mg/dL 8.4 - 10. 2 mg/dL [facility] Chloride [Moles/Vol] 106 mmol/L 98 - 10 8 mmol/L [facility] Creatinine [Mass/Vol] 0.59 mg/dL 0.50 - 1.30 [facility] GFR/1.73 sq M predicted among non-blacks MDRD (S/P/Bld) [Vol rate/Area] The eGFR should be used for monitoring renal function only and not for medication dosing. [facility] GFR/1.73 sq M.predicted CKD-EPI (S/P/Bld) [Vol rate/Area] 115 >=60 mL/min/1.73 m2 [facility] Glucose [Mass/Vol] 106 mg/dL High 65 - 99 mg/dL [facility] HCO3 [Moles/Vol] 27 mmol/L 21 - 32 mmol/L [facility] Interpretation and review of laboratory results Abnormal [facility] Potassium [Moles/Vol] 4.4 mmol/L 3.5 - 5.1 mmol/L [facility] Protein [Mass/Vol] 7.5 g/dL 6.0 - 8.0 g/dL [facility] Sodium [Moles/Vol] 136 mmol/L 135 - 145 mmol/L [facility] Urea nitrogen [Mass/Vol] 13 mg/dL 8 - 25 mg/dL [facility] Urea nitrogen/Creatinine [Mass ratio] 22.0 mg/mg High [facility] ECG 12-LEADon 11-01-2020 Atrial Rate 70 BPM [facility] P [place] 75 degrees [facility] P-R Interval 158 ms [facility] Q-T Interval 400 ms [facility] QRS Duration 82 ms [facility] QTC Calculation (Bezet) 432 ms [facility] R [place] 65 degrees [facility] T [place] 66 degrees [facility] Ventricular Rate 70 BPM [facility] Normal sinus rhythm Normal ECG ECG Cart Interpretation see physician note for interpretation. Confirmed by Whit Pearson ([id number]) on 11/01/2020 4:42:05 PM [facility] Light Blue Topon 11-01-2020 Extra Tube Hold for add-ons. [facility] Comment on above: Auto resulted. NT Pro BNPon 11-01-2020 Interpretation and review of laboratory results Normal [facility] Natriuretic peptide.B prohormone N-Terminal [Mass/Vol] 137 pg/mL 0 - 300 pg/mL [facility] Pride Study Cut-offs Rule In: < /= 50 Years >450 pg/mL 51 Years - 75 Years >900 pg/mL 76 Years - 99 Years >1800 pg/mL Rule Out: All patients <300 pg/mL [facility] TROPONINon 11-01-2020 Troponin I.cardiac [Mass/Vol] ng/mL <=45 ng/L [facility] Troponin I.cardiac [Mass/Vol] Normal [facility] XR Chest 1 Viewon 11-01-2020 EXAMINATION: [...] Chronic healed right posterior 8th rib fracture. [facility] No acute cardiopulmo nary process. ST/[facility]nb Workstation ID: [id number] [facility] Interface, Rad In Fu ji Speechq [...] acute cardiopulmonary process. ST/[facility]nb Workstation ID: [id number] [facility] CBC WITH AUTO DIFFERENTIALon 08-01-2020 Basophils (Bld) [#/Vol] 0.01 10*3/uL [facility] Basophils/100 WBC (Bld) 0.3 % [facility] Eosinophils (Bld) [#/Vol] 0.07 10*3/uL [facility] Eosinophils/100 WBC (Bld) 2.4 % [facility] Erythrocyte distribution width (RBC) [Entitic vol] 17.2 % High 11.6 - 14.8 % [facility] Hematocrit (Bld) [Volume fraction] 37.1 % Low 41 - 53 % [facility] Hemoglobin (Bld) [Mass/Vol] 11.4 g/dL Low 13.5 - 17.5 g/dL [facility] Immature granulocytes (Bld) [#/Vol] 0.01 10*3/uL [facility] Immature granulocytes/100 WBC (Bld) 0.30 % [facility] Comment on above: The IG parameter is the percentage of metamyelocytes, myelocytes and promyelocytes. An immature granulocyte count (IG) of 1% or more suggests the possibility of infection, an IG count of 3% is very likely related to an infection. Interpretation and review of laboratory results Abnormal [facility] Lymphocytes (Bld) [#/Vol] 0.78 10*3/uL Low [facility] Lymphocytes/100 WBC (Bld) 26.8 % [facility] MCH (RBC) [Entitic mass] 22.3 pg Low 26 - 34 pg [facility] MCHC (RBC) [Mass/Vol] 30.7 g/dL Low 31 - 37 g/dL [facility] MCV (RBC) [Entitic vol] 72.5 fL Low 80 - 100 fL [facility] Monocytes (Bld) [#/Vol] 0.30 10*3/uL [facility] Monocytes/100 WBC (Bld) 10.3 % [facility] Neutrophils (Bld) [#/Vol] 1.74 10*3/uL [facility] Neutrophils/100 WBC (Bld) 59.9 % [facility] Nucleated RBC (Bld) [#/Vol] 0.00 10*3/uL [facility] Nucleated RBC/100 WBC (Bld) [Ratio] 0.0 % [facility] Platelet mean volume (Bld) [Entitic vol] 9.7 fL 9.4 - 12.4 fL [facility] Platelets (Bld) [#/Vol] 111 10*3/uL Low [facility] RBC (Bld) [#/Vol] 5.12 10*6/uL [facility] WBC (Bld) [#/Vol] 2.91 10*3/uL Low [facility] Comprehensive Metabolic Pane [facility] 08-01-2020 Albumin [Mass/Vol] 3.6 g/dL 3.2 - 5.2 g/dL [facility] ALP [Catalytic activity/Vol] 72 U/L 40 - 150 U/L [facility] ALT [Catalytic activity/Vol] 39 U/L 14 - 65 U/L [facility] Anion gap [Moles/Vol] 7 mmol/L Low 10 - 20 mmol/L [facility] AST [Catalytic activity/Vol] 37 U/L 0 - 45 U/L [facility] Bilirubin [Mass/Vol] 1.3 mg/dL 0 - 1.3 mg/dL [facility] Calcium [Mass/Vol] 8.6 mg/dL 8.4 - 10. 2 mg/dL [facility] Chloride [Moles/Vol] 106 mmol/L 98 - 10 8 mmol/L [facility] Creatinine [Mass/Vol] 0.66 mg/dL 0.50 - 1.30 [facility] GFR/1.73 sq M predicted among non-blacks MDRD (S/P/Bld) [Vol rate/Area] The eGFR should be used for monitoring renal function only and not for medication dosing. [facility] GFR/1.73 sq M.predicted CKD-EPI (S/P/Bld) [Vol rate/Area] 110 >=60 mL/min/1.73 m2 [facility] Glucose [Mass/Vol] 98 mg/dL 65 - 99 mg/dL [facility] HCO3 [Moles/Vol] 29 mmol/L 21 - 32 mmol/L [facility] Interpretation and review of laboratory results Abnormal [facility] Potassium [Moles/Vol] 4.3 mmol/L 3.5 - 5.1 mmol/L [facility] Protein [Mass/Vol] 7.9 g/dL 6 - 8 g/dL [facility]th Sodium [Moles/Vol] 138 mmol/L 135 - 145 mmol/L [facility] Urea nitrogen [Mass/Vol] 11 mg/dL 8 - 25 mg/dL [facility] Urea nitrogen/Creatinine [Mass ratio] 16.7 mg/mg [facility] D-DIMER, QUANTITATIVEon 07-22 Fibrin D-dimer FEU (PPP) [Mass/Vol] 3.33 High 0.27 - 0.49 mcg/mL FEU [facility] Interpretation and review of laboratory results Abnormal [facility] A D-dimer concentrat ion of <0.5 micrograms per milliliter FEU is considered a low probability for pulmonary embolus (PE) and deep venous thrombosis (DVT). Results of this test should always be interpreted in conjunction with the patient's medical history,clinical presentation, and other findings. Clinical diagnosis should not be based on the results of the D-dimer alone. [facility] ECG 12-LEADon 08-01-2020 Saulo Joseph MD 08/01/2020 9:24 AM EKG 12-lead Date/Time: 08/01/2020 7:45 AM Performed by: Saulo Joseph MD Authorized by: Saulo Joseph MD Interpreted by ED attending physician Comparison: not compared with previous ECG Rhythm: sinus rhythm BPM: 76 Conduction: conduction normal ST Segments: ST segments normal T Waves: T waves normal [place] Interval: 150 QRS Interval: 78 QT Interval: 436 Clinical impression: normal ECG [facility] Otheron 08-01-2020 Extra Tube Hold for add-ons. [facility] Comment on above: Auto resulted. POC Venous Blood Gas Panel-P ulmon 08-01-2020 Base excess Calc (BldV) [Moles/Vol] 3.5 mmol/L High [facility] Breath rate setting Ventilator synchronized intermittent mandatory 0 [facility] CO2 (BldV) [Partial pressure] 53.4 mm[Hg] High [facility] HCO3 (Bld) [Moles/Vol] 30.0 mmol/L High 24 - 28 mmol/L [facility] Hematocrit (BldA) [Volume fraction] 36.2 % Low 41 - 53 % [facility] Hemoglobin (Bld) [Mass/Vol] 11.8 g/dL Low 13.5 - 18 g/dL [facility] Inhaled oxygen concentration 21 % [facility] Interpretation and review of laboratory results Abnormal [facility] Oxygen (BldV) [Partial pressure] 72 mm[Hg] High [facility] Oxygen saturation in Venous blood 94.4 % High 40 - 70 % [facility] pH (BldV) 7.36 [pH] [facility] Specimen source Nom (Unsp spec) Not specified [facility] Tidal volume setting Ventilator 0 [facility] TROPONINon 08-01-2020 Troponin I.cardiac [Mass/Vol] ng/mL <=45 ng/L [facility] Troponin I.cardiac [Mass/Vol] Normal [facility] XR Chest 1 Viewon 08-01-2020 Mild hazy opacity in the bilateral lung bases, left greater than right, may relate to atelectasis or infiltrate, including atypical infection/viral pneumonia. Trace left pleural effusion is suspected. [facility] Workstation ID: [id number] [facility] Interface, Rad In Fu ji Speechq [...] pneumonia. Trace left pleural effusion is suspected. [facility] Workstation ID: [id number] [facility] EXAMINATION: XR CHES T PA/AP 08/01/2020 [...] bilateral lung bases, left greater than right. [facility] APTTon 07-09-2020 aPTT Coag (Bld) [Time] Therapeutic range for APTT's is 68 - 104 seconds [facility] aPTT Coag (Bld) [Time] 138 s Critically high [facility] Interpretation and review of laboratory results Abnormal [facility] aPTT Coag (Bld) [Time] 58 s High [facility] aPTT Coag (Bld) [Time] Therapeutic range for APTT's is 68 - 104 seconds [facility] Interpretation and review of laboratory results Abnormal [facility] Basic Metabolic Panelon 06-22 Anion gap [Moles/Vol] 5 mmol/L Low 10 - 20 mmol/L [facility] Calcium [Mass/Vol] 8.1 mg/dL Low 8.4 - 10. 2 mg/dL [facility] Chloride [Moles/Vol] 104 mmol/L 98 - 10 8 mmol/L [facility] Creatinine [Mass/Vol] 0.82 mg/dL 0.50 - 1.30 [facility] GFR/1.73 sq M predicted among non-blacks MDRD (S/P/Bld) [Vol rate/Area] The eGFR should be used for monitoring renal function only and not for medication dosing. [facility] GFR/1.73 sq M.predicted CKD-EPI (S/P/Bld) [Vol rate/Area] 101 >=60 mL/min/1.73 m2 [facility] Glucose [Mass/Vol] 154 mg/dL High 65 - 99 mg/dL [facility] HCO3 [Moles/Vol] 31 mmol/L 21 - 32 mmol/L [facility] Interpretation and review of laboratory results Abnormal [facility] Potassium [Moles/Vol] 4.4 mmol/L 3.5 - 5.1 mmol/L [facility] Sodium [Moles/Vol] 136 mmol/L 135 - 145 mmol/L [facility] Urea nitrogen [Mass/Vol] 30 mg/dL High 8 - 25 mg/dL [facility] Urea nitrogen/Creatinine [Mass ratio] 36.6 mg/mg High [facility] CBCon 07-09-2020 Erythrocyte distribution width (RBC) [Entitic vol] 16.0 % High 11.6 - 14.8 % [facility] Hematocrit (Bld) [Volume fraction] 30.8 % Low 41 - 53 % [facility] Hemoglobin (Bld) [Mass/Vol] 9.6 g/dL Low 13.5 - 17.5 g/dL [facility] Interpretation and review of laboratory results Abnormal [facility] MCH (RBC) [Entitic mass] 22.3 pg Low 26 - 34 pg [facility] MCHC (RBC) [Mass/Vol] 31.2 g/dL 31 - 37 g/dL [facility] MCV (RBC) [Entitic vol] 71.6 fL Low 80 - 100 fL [facility] Nucleated RBC (Bld) [#/Vol] 0.00 10*3/uL [facility] Nucleated RBC/100 WBC (Bld) [Ratio] 0.0 % [facility] Platelet mean volume (Bld) [Entitic vol] 11.2 fL 9.4 - 12.4 fL [facility] Platelets (Bld) [#/Vol] 107 10*3/uL Low [facility] RBC (Bld) [#/Vol] 4.30 10*6/uL Low [facility] WBC (Bld) [#/Vol] 5.01 10*3/uL [facility] CBC WITH AUTO DIFFERENTIALon 07-09-2020 Basophils (Bld) [#/Vol] 0.00 10*3/uL [facility] Basophils/100 WBC (Bld) 0.0 % [facility] Eosinophils (Bld) [#/Vol] 0.00 10*3/uL [facility] Eosinophils/100 WBC (Bld) 0.0 % [facility] Erythrocyte distribution width (RBC) [Entitic vol] 16.1 % High 11.6 - 14.8 % [facility] Hematocrit (Bld) [Volume fraction] 31.6 % Low 41 - 53 % [facility] Hemoglobin (Bld) [Mass/Vol] 9.9 g/dL Low 13.5 - 17.5 g/dL [facility] Immature granulocytes (Bld) [#/Vol] 0.05 10*3/uL [facility] Immature granulocytes/100 WBC (Bld) 0.80 % [facility] Comment on above: The IG parameter is the percentage of metamyelocytes, myelocytes and promyelocytes. An immature granulocyte count (IG) of 1% or more suggests the possibility of infection, an IG count of 3% is very likely related to an infection. Interpretation and review of laboratory results Abnormal [facility] Lymphocytes (Bld) [#/Vol] 0.44 10*3/uL Low [facility] Lymphocytes/100 WBC (Bld) 7.3 % [facility] MCH (RBC) [Entitic mass] 21.9 pg Low 26 - 34 pg [facility] MCHC (RBC) [Mass/Vol] 31.3 g/dL 31 - 37 g/dL [facility] MCV (RBC) [Entitic vol] 69.8 fL Low 80 - 100 fL [facility] Monocytes (Bld) [#/Vol] 0.25 10*3/uL Low [facility] Monocytes/100 WBC (Bld) 4.1 % [facility] Neutrophils (Bld) [#/Vol] 5.31 10*3/uL [facility] Neutrophils/100 WBC (Bld) 87.8 % [facility] Nucleated RBC (Bld) [#/Vol] 0.00 10*3/uL [facility] Nucleated RBC/100 WBC (Bld) [Ratio] 0.0 % [facility] Platelet mean volume (Bld) [Entitic vol] 9.7 fL 9.4 - 12.4 fL [facility] Platelets (Bld) [#/Vol] 114 10*3/uL Low [facility] RBC (Bld) [#/Vol] 4.53 10*6/uL [facility] WBC (Bld) [#/Vol] 6.05 10*3/uL [facility] EKGon 11-18-2020 Ordered by an unspec ified provider. [facility] LDHon 07-09-2020 Interpretation and review of laboratory results Normal [facility] LDH Lactate to pyruvate reaction [Catalytic activity/Vol] 144 U/L 100 - 250 U/L [facility] Magnesium Levelon 07-09-2020 Interpretation and review of laboratory results Normal [facility] Magnesium [Mass/Vol] 2.4 mg/dL 1.6 - 2 .4 mg/dL [facility] PATHOLOGIST BLOOD SMEAR INTE RPRETATIONon 07-09-2020 Erythrocyte distribution width (RBC) [Entitic vol] 16.4 % High 11.6 - 14.8 % [facility] Hematocrit (Bld) [Volume fraction] 38.2 % Low 41 - 53 % [facility] Hemoglobin (Bld) [Mass/Vol] 11.8 g/dL Low 13.5 - 17.5 g/dL [facility] Interpretation and review of laboratory results Abnormal [facility] MCH (RBC) [Entitic mass] 21.9 pg Low 26 - 34 pg [facility] MCHC (RBC) [Mass/Vol] 30.9 g/dL Low 31 - 37 g/dL [facility] MCV (RBC) [Entitic vol] 70.9 fL Low 80 - 100 fL [facility] Nucleated RBC (Bld) [#/Vol] 0.00 10*3/uL [facility] Nucleated RBC/100 WBC (Bld) [Ratio] 0.0 % [facility] Pathologist review Pathologist comment (Bld) [Interp] Reviewed [facility] Platelet mean volume (Bld) [Entitic vol] 10.2 fL 9.4 - 12.4 fL [facility] Platelets (Bld) [#/Vol] 200 10*3/uL [facility] RBC (Bld) [#/Vol] 5.39 10*6/uL [facility] WBC (Bld) [#/Vol] 8.61 10*3/uL [facility] See Pathology Report #[id number] [facility] POC Glucoseon 07-09-2020 Glucose [Mass/Vol] 136 mg/dL High 65 - 99 mg/dL [facility] Interpretation and review of laboratory results Abnormal [facility] Glucose [Mass/Vol] 128 mg/dL High 65 - 99 mg/dL [facility] Interpretation and review of laboratory results Abnormal [facility] Glucose [Mass/Vol] 233 mg/dL High 65 - 99 mg/dL [facility] Interpretation and review of laboratory results Abnormal [facility] Pathology Consulton 07-09-20 20 Clinical information o6ytkGLsODDbg2xkDQP mbGFuZzE vYlRvJzQcAqn4ZOMszcM1Vhc2CI TlHLvduB2eOILwLHweL2ydcdObi GUgKYAdEGo6gR5eiXanaF2uJjJc UjCrUSYav5ZgFTCnbSLpjCM7jZS yfEQpPQVnADKmZMakm3XajVmfFY BhciB9 [facility] Pathology report final diagnosis Narrative u6ihjUFcVUGyjBE7KxIpKMHto8u jr3ZbkEFrlGCvZQtezABvjoGezr 28bXV9dB81UO5xDYWgFbB2KMBal uM1Gzx0QXAePEHniVVqL146MBBx FZVjV34jNISET034m1vvf3qkmyR vpHL3nWvsWCRjTMEkJFlhQCQvAy JhQmYkZTAPElYbIWYcx5FhY5M7C OHgWExab6ggLJEjFNyxx3RlWRvH HSUIUC6NJU5fgMO0IKsWUVDHS0g ZgCN8SyO6pIU4RV74YUVmGYQjhP EkCPhrD346JGEluCDmJQJieMXlw M5fLYIgwKEhwgo1JLBtRPeup5nd IIJtMQtyi8BnFUkFRCTYOF9JYZ4 niBA7HFqAXYCVEPbkHPQ9NXmlgI A6j4vxlTSfs2q0NSruAEQ1oEegw GFpblxiXGYxXGZzMjBccGFyXGxp NzIwXGxpbjcyMFxiMCAxLiAgTWl zOBZpZQN2tv9lzBbnqQZgHSM9K6 phh5RbusZsq9KnhE3jLLH5yS77x j9rbqXpKD9lAUTzvbkkTGFig4xc V2qnHAcyibIxLm9cML1hQ5NyN7m 3wGNqXC9ybHvdBOjslIlqQT0zi0 0ok4opvCyaS9o4k3JirnOgozHzt HTyglhtfA9scOQchp4wGVEiLHeu m7KgTKOmk75hhBOpysKvb6T3jQJ qFWVtYXAvGWecqARaY2G3RGCvyU drHlTtU4MoSYOstO5byuCqFImil cUzZx0aJZHtmxyrmDQtLLlgPboe i2Jsa09vGCAjgxI5nOB0ZBRqvEJ pr0NvYEEmgXOGCSXfGDVLu90uGC GBQyWpTQjlkeBrmClkZSXTx70vF N27BhANhWUmPtdkQClfO8BoILLb OUH6T2kpz5HxqaMfx6LasGPopkJ mYDXgC9uryvG3ERXlJU1fFWfvte EuFKLmkOSusESyv1QlyZQoDI1bA Q3xwJgnwVSzITTDNL4aL2bvEasp l6ZisFq0Y0IwQXurn2QzfGrgJIr zIGNvbnNpZGVyZWQgbGVzcyBsaW txqZb2DWxsg1V1FYVjWLlomL1pq J1cpH6kUBflM3Csi6Jam9Paz0jv YY3hR3b6AEKiVAGybjXpUHQjBQH jHz7mVRU9fbKeKPXwEGPbgGMamP vnpaxfW1r1KC9hvHevDKNmuI0cw QOqMBPdvIdriUMzhPX4d9G8HU1l MJEidSGxlXdxpWBjs3EgbKIyMSU heqciJDHyGNFyynu2CNKHBHENJT rNJB2CLVLCYIHUXW3RILrABvElZ YB0RGuiOJX3IzTFAWQSXBiEN4Nb SYYHQMJRZPAkFO2LQLbQPZWSMPP GN48FMEPNKJRWQ6UPF3lEGArBCY WILAVVB96ZNSHSHESXB2TETHIEI DTIVEwDZQBRKl9ZTZEXGZZNRH5S JDkJCjCdDZwPQGPhixVqPbB6NyB 9Kab0LZj1GDMJGZKBHH6BOAMPY8 0IKJJVNSFWN1HFSNDTBqCBXVIPG 17OIHRNDJLKK4ILV7sUKRHFTaTH YLBUV76IAQYRDTMBM5JZAIRTRQL XTuLTPvNIEF4SRLWFDJJMWP0DNU cNXwFxUBDHL1EVYxMBC0yzHQXFP NGVWZEgAP5YxU== [facility] Pathology report gross observation Narrative x5qclLRaBFYgjIH2LmXhQDXao4m lw0MlwFRkvCIyRJgocLXxqpXyfh 53yDE9rF46WZ9kBGChFoL4ZDFql uU9Oec9LFCmCKJhhFVjJ122YECj WHFpM51lXKDFL954x2jbb3qkykW hhKZ9sOjfVGUcVOJySSonSQSiMJ LpSvMlSuDeOXn2WIGdwSJlc11xD PLfllceqJWrJRayCxyuw3Rtq44b YXIgKFdyaWdodCBzdGFpbikuXHB buqtbCIVfQ98oIFUiaQQerEWgMC SxEFT1NA1jktGzqXOqNMMBe0Ukb LNgpWWiTFViEPRGrDSoy96xlsEF inGtdNOkVMDhc1HrJMbzIVHMAVW 1LXmeU3pqLSRovIEkYIecPTX5 [facility] APTTon 07-08-2020 aPTT Coag (Bld) [Time] Therapeutic range for APTT's is 68 - 104 seconds [facility] aPTT Coag (Bld) [Time] 59 s High [facility] Interpretation and review of laboratory results Abnormal [facility] aPTT Coag (Bld) [Time] 33 s [facility] aPTT Coag (Bld) [Time] Therapeutic range for APTT's is 68 - 104 seconds [facility] Alcohol, Medicalon 0 Ethanol [Mass/Vol] mg/dL <10.00 mg/dL [facility] Comment on above: Alcohol cutoff: <10. 00 mg/dL = None Detected Interpretation and review of laboratory results Normal [facility] Ammoniaon 07-08-2020 Ammonia (P) [Mass/Vol] 58 ug/dL High [facility] Interpretation and review of laboratory results Abnormal [facility] CBCon 07-08-2020 Erythrocyte distribution width (RBC) [Entitic vol] 16.4 % High 11.6 - 14.8 % [facility] Hematocrit (Bld) [Volume fraction] 38.2 % Low 41 - 53 % [facility] Hemoglobin (Bld) [Mass/Vol] 11.8 g/dL Low 13.5 - 17.5 g/dL [facility] Interpretation and review of laboratory results Abnormal [facility] MCH (RBC) [Entitic mass] 21.9 pg Low 26 - 34 pg [facility] MCHC (RBC) [Mass/Vol] 30.9 g/dL Low 31 - 37 g/dL [facility] MCV (RBC) [Entitic vol] 70.9 fL Low 80 - 100 fL [facility] Nucleated RBC (Bld) [#/Vol] 0.00 10*3/uL [facility] Nucleated RBC/100 WBC (Bld) [Ratio] 0.0 % [facility] Platelet mean volume (Bld) [Entitic vol] 10.2 fL 9.4 - 12.4 fL [facility] Platelets (Bld) [#/Vol] 200 10*3/uL [facility] [facility] RBC (Bld) [#/Vol] 5.39 10*6/uL [facility] WBC (Bld) [#/Vol] 8.61 10*3/uL [facility] Erythrocyte distribution width (RBC) [Entitic vol] 16.3 % High 11.6 - 14.8 % [facility] Hematocrit (Bld) [Volume fraction] 35.2 % Low 41 - 53 % [facility] Hemoglobin (Bld) [Mass/Vol] 10.6 g/dL Low 13.5 - 17.5 g/dL [facility] Interpretation and review of laboratory results Abnormal [facility] MCH (RBC) [Entitic mass] 22.1 pg Low 26 - 34 pg [facility] MCHC (RBC) [Mass/Vol] 30.1 g/dL Low 31 - 37 g/dL [facility] MCV (RBC) [Entitic vol] 73.5 fL Low 80 - 100 fL [facility] Nucleated RBC (Bld) [#/Vol] 0.00 10*3/uL [facility] Nucleated RBC/100 WBC (Bld) [Ratio] 0.0 % [facility] Platelet mean volume (Bld) [Entitic vol] 11.2 fL 9.4 - 12.4 fL [facility] Platelets (Bld) [#/Vol] 126 10*3/uL Low [facility] RBC (Bld) [#/Vol] 4.79 10*6/uL [facility] WBC (Bld) [#/Vol] 5.04 10*3/uL [facility] COVID-19, MOLECULARon 2019 SARS-COV-2 (WATERS ID) Not Detected Normal Not Detected [facility] Comment on above: Result Comment: This test [...] at the following links: For Healthcare Providers: https://www.fda.gov/media/811567/download For Patients: https://www.fda.gov/media/560590/download Performed By: #### L [id number] #### LAB [address], [place] [address] Jack Mendoza M.D. [id number] CT PULMONARY ARTERIESon 06-22 Interface, Rad In [...] in caliber. Heart size is mildly enlarged. Fpgs-lj-topowrsc coronary artery calcifications. There are a few shotty lymph nodes in the mediastinum and hilar region, not significantly changed from the prior study of October,. The sales representative publications lymph node in the right paratracheal region [...] no suspicious osseous lesion. There are multilevel okpjjoe-ck-ukko degenerative changes of the thoracic spine. The [...] possibility, less likely. Splenomegaly. Left adrenal myelolipoma. [facility] Workstation ID: [id number] [place] [address] Limited study to lary luate for pulmonary embolism due to phase of contrast. No focal filling defect up to the lobar level. Small left, trace right-sided pleural effusion. Associated consolidative opacities are likely related to atelectasis. Superimposed pneumonia is also a possibility, less likely. Splenomegaly. Left adrenal myelolipoma. [employer] Workstation ID: [id number] EXAMINATION: CT PULM ONARY ARTERIES HISTORY: ORDERING SYSTEM PROVIDED HISTORY: PE suspected, high pretest prob, TECHNOLOGIST PROVIDED HISTORY: Illness/Other Reason for exam: Acute exacerbation of COPD, respiratory distress. Encounter Type: Initial Additional signs and symptoms: Best images acheivable. ORDERING SYSTEM PROVIDED DIAGNOSIS CODES: J96.00 Acute respiratory failure, unspecified whether with hypoxia or hypercapnia ([facility]) J44.1 COPD exacerbation ([facility]) F12.10 Cannabis abuse COMPARISON: CT chest without [...] in caliber. Heart size is mildly enlarged. Seph-un-rhdzrxqa coronary artery calcifications. There are a few shotty lymph nodes in the mediastinum and hilar region, not significantly changed from the prior study of October,. The sales representative publications lymph node in the right paratracheal region [...] no suspicious osseous lesion. There are multilevel xryazit-mr-uanu degenerative changes of the thoracic spine. The [...] nodule is limited due to motion artifact. [facility] CT PULMONARY ARTERIES EXAMINATION: CT PULMONARY ARTERIES HISTORY: ORDERING SYSTEM PROVIDED HISTORY: PE suspected, high pretest prob, TECHNOLOGIST PROVIDED HISTORY: Illness/Other Reason for exam: Acute exacerbation of COPD, respiratory distress. Encounter Type: Initial Additional signs and symptoms: Best images acheivable. ORDERING SYSTEM PROVIDED DIAGNOSIS CODES: J96.00 Acute respiratory failure, unspecified whether with hypoxia or hypercapnia ([facility]) J44.1 COPD exacerbation ([facility]) F12.10 Cannabis abuse COMPARISON: CT chest without [...] in caliber. Heart size is mildly enlarged. Oqjd-or-kbgghypl coronary artery calcifications. There are a few shotty lymph nodes in the mediastinum and hilar region, not significantly changed from the prior study of October,. The sales representative publications lymph node in the right paratracheal region [...] no suspicious osseous lesion. There are multilevel srcjfdm-td-wnxn degenerative changes of the thoracic spine. The [...] possibility, less likely. Splenomegaly. Left adrenal myelolipoma. [employer] Workstation ID: [id number] Dictated by: MONIE ROCHE on TueJul 08, 2020 10:27:46 AM EST Transcribed by: AMNA NEAL on TueJul 08, 2020 10:35:04 AM EST Finalized by: MONIE ROCHE on TueJul 08, 2020 2:23:59 PM EST Normal [facility] Comment on above: Order Comment: Injur y/Trauma or Illness?:Illness/Other How long have you had these symptoms (acute/chronic)?:Acute Reason for exam?:Acute exacerbation of COPD, respiratory distress. Type of Exam?:Initial Additional signs and symptoms?:Best images acheivable. Comprehensive Metabolic Pane [facility] 07-08-2020 Albumin [Mass/Vol] 2.8 g/dL Low 3.2 - 5.2 g/dL [facility] ALP [Catalytic activity/Vol] 58 U/L 40 - 150 U/L [facility] ALT [Catalytic activity/Vol] 52 U/L 14 - 65 U/L [facility] Anion gap [Moles/Vol] 11 mmol/L 10 - 20 mmol/L [facility] AST [Catalytic activity/Vol] 55 U/L High 0 - 45 U/L [facility] Bilirubin [Mass/Vol] 0.8 mg/dL 0 - 1.3 mg/dL [facility] Calcium [Mass/Vol] 8.1 mg/dL Low 8.4 - 10. 2 mg/dL [facility] Chloride [Moles/Vol] 105 mmol/L 98 - 10 8 mmol/L [facility] Creatinine [Mass/Vol] 0.96 mg/dL 0.50 - 1.30 [facility] GFR/1.73 sq M predicted among non-blacks MDRD (S/P/Bld) [Vol rate/Area] The eGFR should be used for monitoring renal function only and not for medication dosing. [facility] GFR/1.73 sq M.predicted CKD-EPI (S/P/Bld) [Vol rate/Area] 90 >=60 mL/min/1.73 m2 [facility] Glucose [Mass/Vol] 147 mg/dL High 65 - 99 mg/dL [facility] HCO3 [Moles/Vol] 26 mmol/L 21 - 32 mmol/L [facility] Interpretation and review of laboratory results Abnormal [facility] Potassium [Moles/Vol] 5.1 mmol/L 3.5 - 5.1 mmol/L [facility] Protein [Mass/Vol] 7.8 g/dL 6 - 8 g/dL [facility] Sodium [Moles/Vol] 137 mmol/L 135 - 145 mmol/L [facility] Urea nitrogen [Mass/Vol] 20 mg/dL 8 - 25 mg/dL [facility] Urea nitrogen/Creatinine [Mass ratio] 20.8 mg/mg High [facility] Cortisol, Randomon 0 Cortisol [Mass/Vol] 16.9 ug/dL mcg/dL [facility] No established refer ence range. [facility] Creatinine, Urine, Randomon 07-08-2020 Creatinine (U) [Mass/Vol] 29.1 mg/dL [facility] No established refer ence range. [facility] D-DIMER, QUANTITATIVEon 06-22 Fibrin D-dimer FEU (PPP) [Mass/Vol] 4.94 High 0.27 - 0.49 mcg/mL FEU [facility] Interpretation and review of laboratory results Abnormal [facility] A D-dimer concentrat ion of <0.5 micrograms per milliliter FEU is considered a low probability for pulmonary embolus (PE) and deep venous thrombosis (DVT). Results of this test should always be interpreted in conjunction with the patient's medical history,clinical presentation, and other findings. Clinical diagnosis should not be based on the results of the D-dimer alone. [facility] DRUGS OF ABUSE SCREEN, URINE on 07-08-2020 Amphetamines Ql (U) None Detected None Detected [facility] Comment on above: Urine Amphetamine Cu toff: < 1000 ng/mL = None Detected Barbiturates Screen Ql (U) None Detected None Detected [facility] Comment on above: Urine Barbiturates C utoff: < 200 ng/mL = None Detected Benzodiazepines Ql (U) None Detected None Detected [facility] Comment on above: Urine Benzodiazepine Cutoff: < 200 ng/mL = None Detected Cannabinoids Screen Ql (U) Positive Abnormal None Detected [facility] Comment on above: Urine Cannabinoids C utoff: < 50 ng/mL = None Detected Cocaine Ql (U) None Detected None Detected [facility] Comment on above: Urine Cocaine Cutoff : < 300 ng/mL = None Detected Interpretation and review of laboratory results Abnormal [facility] Methadone Screen Ql (U) None Detected None Detected [facility] Comment on above: Urine Methadone Cuto ff: < 300 ng/mL = None Detected Opiates Screen Ql (U) None Detected None Detected [facility] Comment on above: Urine Opiates Cutoff : < 300 ng/mL = None Detected Oxycodone Ql (U) None Detected None Detected [facility] Comment on above: Urine Oxycodone Cuto ff: < 100 ng/mL = None Detected Screen results shoul d be used for treatment purposes only. Specimen will be kept for 1 week, if the sample is adequate. Confirmation testing can be initiated by calling the lab within 1 week. [facility] ECG 12-LEADon 07-08-2020 Atrial Rate 163 BPM [facility] Q-T Interval 320 ms [facility] QRS Duration 88 ms [facility] QTC Calculation (Bezet) 505 ms [facility] R [place] 59 degrees [facility] T [place] -16 degrees [facility] Ventricular Rate [address] [facility] th Atrial fibrillation with rapid ventricular response Nonspecific ST abnormality Abnormal QRS-T angle, consider primary T wave abnormality Abnormal ECG ECG Cart Interpretation see physician note for interpretation. Confirmed by Whit Pearson ([id number]) on 07/08/2020 1:51:47 PM [facility] Atrial Rate 76 BPM [facility] P [place] 68 degrees [facility] P-R Interval 176 ms [facility] Q-T Interval 414 ms [facility] QRS Duration 86 ms [facility] QTC Calculation (Bezet) 465 ms [facility] R [place] 50 degrees [facility] T [place] 52 degrees [facility] Ventricular Rate 76 BPM [facility] Normal sinus rhythm Normal ECG Confirmed by Memo Bernstein MD ([id number]) on 07/08/2020 1:39:52 PM [facility] ECHOCARDIOGRAM 2D COMPLETEon 07-08-2020 Aortic valve area 3.274[address] [facility] AV mean gradient 3.41793 mmHg [facility] AV peak gradient 5.99256 mmHg [facility] EF 75.4831 % [facility] Interface, Rad In He artlab Xper Echopacs - 07/08/2020 9:28 AM EST Patient Info Name: CARMEN GILMAN Age: 54 years : 1965 Gender: Male Ht: 183 cm Wt: 136 kg BSA: 2.68 m2 HR: 71 bpm BP: 91 / 57 mmHg Heart Rhythm: Atrial Flutter, Atrial Fibrillation, Sinus Rhythm Technical Quality: Technically difficult, Fair Exam Date: 07/08/2020 7:02 AM Patient Status: Inpatient Associate Professor Of Musicology: Jenise Carcamo RCDS Exam Type: ECHOCARDIOGRAM COMPLETE W CONTRAST Study Info Indications I48.92 - Unspecified atrial flutter I48.91 - Unspecified atrial fibrillation Referring Physician: CRICKET Howard; [id number] BMI: 40.55 kg/m2 Summary 1. Technically fair [...] mmHg MV VTI 21.72 cm MV Decel [place] 560.70 cm/s2 MV PHT 53 ms MV [...] ml/m2 16.00-34.00 RA Dimensions RA Systolic Major [place] Length (4C) 6.58 cm <=5.30 RA Area (4C) 21.26 cm2 <=18.00 RA Area (4C) Index 7.93 cm2/m2 RA ESV (4C MOD) 58.58 ml 18.00-32.00 RA ESV Index (4C MOD) 21.84 ml/m2 <=32.00 Report Signatures Finalized by Liz Raya MD on 07/08/2020 09:27 AM [facility] Patient Info Name: Micheal GILMAN Age: 54 years : 1965 Gender: Male Ht: 183 cm Wt: 136 kg BSA: 2.68 m2 HR: 71 bpm BP: 91 / 57 mmHg Heart Rhythm: Atrial Flutter, Atrial Fibrillation, Sinus Rhythm Technical Quality: Technically difficult, Fair Exam Date: 07/08/2020 7:02 AM Patient Status: Inpatient Associate Professor Of Musicology: Jenise Carcamo RCDS Exam Type: ECHOCARDIOGRAM COMPLETE W CONTRAST Study Info Indications I48.92 - Unspecified atrial flutter I48.91 - Unspecified atrial fibrillation Referring Physician: CRICKET Howard; [id number] BMI: 40.55 kg/m2 Summary 1. Technically fair [...] mmHg MV VTI 21.72 cm MV Decel [place] 560.70 cm/s2 MV PHT 53 ms MV [...] ml/m2 16.00-34.00 RA Dimensions RA Systolic [place] Length (4C) 6.58 cm <=5.30 RA Area (4C) 21.26 cm2 <=18.00 RA Area (4C) Index 7.93 cm2/m2 RA ESV (4C MOD) 58.58 ml 18.00-32.00 RA ESV Index (4C MOD) 21.84 ml/m2 <=32.00 Report Signatures Finalized by Liz Raya MD on 07/08/2020 09:27 AM [facility] ECHOCARDIOGRAM COMPLETE W CO NTRASTon 07-08-2020 ECHOCARDIOGRAM COMPLETE W CONTRAST Patient Info Name: CARMEN GILMAN Age: 54 years : 1965 Gender: Male Ht: 183 cm Wt: 136 kg BSA: 2.68 m2 HR: 71 bpm BP: 91 / 57 mmHg Heart Rhythm: Atrial Flutter, Atrial Fibrillation, Sinus Rhythm Technical Quality: Technically difficult, Fair Exam Date: 07/08/2020 7:02 AM Patient Status: Inpatient Associate Professor Of Musicology: Jenise Carcamo RCDS Exam Type: ECHOCARDIOGRAM COMPLETE W CONTRAST Study Info Indications I48.92 - Unspecified atrial flutter I48.91 - Unspecified atrial fibrillation Referring Physician: CRICKET Howard; [id number] BMI: 40.55 kg/m2 Summary 1. Technically fair [...] mmHg MV VTI 21.72 cm MV Decel [place] 560.70 cm/s2 MV PHT 53 ms MV [...] ml/m2 16.00-34.00 RA Dimensions RA Systolic Major [place] Length (4C) 6.58 cm <=5.30 RA Area (4C) 21.26 cm2 <=18.00 RA Area (4C) Index 7.93 cm2/m2 RA ESV (4C MOD) 58.58 ml 18.00-32.00 RA ESV Index (4C MOD) 21.84 ml/m2 <=32.00 Report Signatures Finalized by Liz Raya MD on 07/08/2020 09:27 AM [facility] Hemoglobin A1con 07-08-2020 Average glucose Estimated from glycated hemoglobin mass conc (Bld) 111 mg/dL 68 - 114 mg/dL [facility] HbA1c (Bld) [Mass fraction] 5.5 % 4 - 5.6 % [facility] Interpretation and review of laboratory results Normal [facility] Normal: 4.0% - 5.6% Increased risk for diabetes: 5.7% - 6.4% Diabetes: >= 6.5% Pediatrics: No established reference range Estimated average glucose: 68-114 mg/dL [facility] Hepatic Function Panelon Albumin [Mass/Vol] 3.0 g/dL Low 3.2 - 5.2 g/dL [facility] ALP [Catalytic activity/Vol] 85 U/L 40 - 150 U/L [facility] ALT [Catalytic activity/Vol] 50 U/L 14 - 65 U/L [facility] AST [Catalytic activity/Vol] 57 U/L High 0 - 45 U/L [facility] Bilirubin [Mass/Vol] 0.7 mg/dL 0 - 1.3 mg/dL [facility] Bilirubin.conjugated [Mass/Vol] 0.4 mg/dL 0 - 0.4 mg/dL [facility] Interpretation and review of laboratory results Abnormal [facility] Protein [Mass/Vol] 8.4 g/dL High 6 - 8 g/dL [facility] alth IRON STUDY WITH FERRITINon 1 09-07-2019 Ferritin [Mass/Vol] 360 ng/mL 30 - 400 ng/mL [facility] Interpretation and review of laboratory results Normal [facility] Iron [Mass/Vol] 110 ug/dL [facility] h Iron binding capacity [Mass/Vol] 235 [facility] Iron saturation [Mass fraction] 47 % 20 - 50 % [facility] Lactic Acid, Plasmaon 2019 Interpretation and review of laboratory results Abnormal [facility] Lactate [Moles/Vol] 2.4 mmol/L High 0.6 - 2 mmol/L [facility] Lipid Panelon 07-08-2020 Cholesterol [Mass/Vol] 88 mg/dL Low 100 - 199 mg/dL [facility] Comment on above: National Cholesterol Education Program Guidelines: Cholesterol Desirable: <200 mg/dL Borderline High: 200-239 mg/dL High: greater than or equal to 240 mg/dL Cholesterol in HDL [Mass/Vol] 35 mg/dL Low 40 - 59 [facility] Comment on above: National Cholesterol Education Program Guidelines: HDL Cholesterol Low: <40 mg/dL Near Optimal: 40-59 mg/dL High: greater than or equal to 60 mg/dL Cholesterol in LDL [Mass/Vol] 43 mg/dL 10 - 130 mg/dL [facility] Comment on above: National Cholesterol Education Program Guidelines: LDL Cholesterol Optimal: <100 mg/dL Near Optimal/above Optimal: 100-129 mg/dL Borderline High: 130-159 mg/dL High: 160-189 mg/dL Very High: greater than or equal to 190 mg/dL Cholesterol non HDL [Mass/Vol] 53 mg/dL [facility] Comment on above: National Cholesterol Education Program Guidelines: NON HDL Cholesterol Desirable: <130 mg/dL Borderline High: 130-159 mg/dL High: 160-189 mg/dL Very High: > or = 190 mg/dL Cholesterol.total/Ch olesterol in HDL [Mass ratio] 2.5 {ratio} ratio [facility] Comment on above: Males Cholesterol/HD L Ratio: Average risk: 5.0 1/2 average risk: 3.4 2 x average risk: 9.6 Interpretation and review of laboratory results Abnormal [facility] Triglyceride [Mass/Vol] 48 mg/dL 30 - 150 mg/dL [facility] Comment on above: National Cholesterol Education Program Guidelines: Triglyceride Normal: <150 mg/dL Borderline High: 150-199 mg/dL High: 200-499 mg/dL Very High: greater than or equal to 500 mg/dL Magnesium Levelon 07-08-2020 Interpretation and review of laboratory results Normal [facility] Magnesium [Mass/Vol] 2.0 mg/dL 1.6 - 2 .4 mg/dL [facility] NT Pro BNPon 07-08-2020 Interpretation and review of laboratory results Abnormal [facility] Natriuretic peptide.B prohormone N-Terminal [Mass/Vol] 1022 pg/mL High 0 - 300 pg/mL [facility] Pride Study Cut-offs Rule In: < /= 50 Years >450 pg/mL 51 Years - 75 Years >900 pg/mL 76 Years - 99 Years >1800 pg/mL Rule Out: All patients <300 pg/mL [facility] Otheron 07-08-2020 No established refer ence range. [facility] Interpretation and review of laboratory results Normal [facility] POC ARTERIAL BLOOD GAS PANEL -PULMicheal - Shannon 07-08-2020 Alveolar-arterial oxygen Partial pressure difference 121.7 mm Hg [facility] Base excess Calc (Bld) [Moles/Vol] 1.8 mmol/L [facility] Breath rate setting Ventilator synchronized intermittent mandatory 0 [facility] CO2 (Bld) [Partial pressure] 54.8 mm[Hg] High [facility] HCO3 (Bld) [Moles/Vol] 28.6 mmol/L High 22 - 26 mmol/L [facility] Hematocrit (BldA) [Volume fraction] 32.0 % Low 41 - 53 % [facility] Hemoglobin (Bld) [Mass/Vol] 10.4 g/dL Low 13.5 - 18 g/dL [facility] Inhaled oxygen concentration 40 % [facility] Interpretation and review of laboratory results Abnormal [facility] Oxygen (Bld) [Partial pressure] 88 mm[Hg] [facility] PEEP Respiratory system 5 [facility] pH (Bld) 7.33 [pH] Low [facility] SaO2% (BldA) [Mass fraction] 96.6 % 92 - 99 % [facility] Specimen source Nom (Unsp spec) Radial, right [facility] Tidal volume setting Ventilator 600 [facility] POC Glucoseon 07-08-2020 Glucose [Mass/Vol] 187 mg/dL High 65 - 99 mg/dL [facility] Interpretation and review of laboratory results Abnormal [facility] Glucose [Mass/Vol] 133 mg/dL High 65 - 99 mg/dL [facility] Interpretation and review of laboratory results Abnormal [facility] Glucose [Mass/Vol] 180 mg/dL High 65 - 99 mg/dL [facility] Interpretation and review of laboratory results Abnormal [facility] Glucose [Mass/Vol] 147 mg/dL High 65 - 99 mg/dL [facility] Interpretation and review of laboratory results Abnormal [facility] PT/INRon 07-08-2020 INR Coag (PPP) [Relative time] 1.1 {INR} [facility] PT Coag (PPP) [Time] 14.1 s [facility] During the induction phase of oral anticoagulation, the INR may not reflect the anticoagulation status of the patient. Therapeutic ranges for INR's are: Most clinical situations: INR 2.0-3.0 Mechanical Prosthetic Valve: INR 2.5-3.5 Critical: INR >5.0 [facility] Protein, Urine, Randomon Protein (U) [Mass/Vol] 629.9 mg/dL [facility] Reflex Lactic Acid, Plasmaon 07-08-2020 Interpretation and review of laboratory results Normal [facility] Lactate [Moles/Vol] 1.6 mmol/L 0.6 - 2 mmol/L [facility] TROPONINon 07-08-2020 Interpretation and review of laboratory results Abnormal [facility] Troponin I.cardiac [Mass/Vol] ng/mL Critically high < -/+ 8 change ng/L [facility] Troponin I.cardiac [Mass/Vol] 152 ng/L Critically high <=45 [facility] Troponin I.cardiac [Mass/Vol] Probable acute injury or myocardial infarction. [facility] Interpretation and review of laboratory results Abnormal [facility] Troponin I.cardiac [Mass/Vol] 146 ng/L Critically high <=45 [facility] Troponin I.cardiac [Mass/Vol] Probable acute injury or myocardial infarction. [facility] Troponin I.cardiac [Mass/Vol] ng/mL Critically high < -/+ 8 change ng/L [facility] TSH with Reflex Free T4on Interpretation and review of laboratory results Normal [facility] TSH Qn 0.62 m[IU]/L [facility] URINALYSISon 07-08-2020 Bacteria Auto Ql (U) Rare Abnormal None Se en /hpf [facility] Bilirubin Ql (U) Negative Negative [facility] th Clarity Refractometry automated (U) Clear Clear [facility] Color (U) Yellow Colorless, Yellow [facility] Epithelial cells.squamous Auto (Urine sed) [#/Area] <1 [facility] Glucose Auto test strip (U) [Mass/Vol] 50 Abnormal Negative mg/dL [facility] Hemoglobin Auto test strip Ql (U) Moderate Abnormal Negative [facility] Hyaline casts Auto (Urine sed) [#/Area] 0-2 0 - 2 /lpf [facility] Interpretation and review of laboratory results Abnormal [facility] Ketones (U) [Mass/Vol] Negative Negative mg/dL [facility] Leukocyte esterase Auto test strip Ql (U) Negative Negative [facility] Mucus Auto (Urine sed) [#/Area] Rare None Seen, Rare /lpf [facility] Nitrite Auto test strip Ql (U) Negative Negative [facility] pH (U) 6.5 [pH] [facility] Protein (U) [Mass/Vol] mg/dL Abnormal Negative mg/dL [facility] RBC Auto (Urine sed) [#/Area] 84 High [facility] Specific gravity (U) [Rel density] 1.016 [facility] Transitional cells Computer assisted (U) [#/Area] <1 [facility] Urobilinogen (U) [Mass/Vol] <2.0 <2.0 mg/dL [facility] WBC Auto (Urine sed) [#/Area] 7 High [facility] Microscopic examinat ion is performed on all urinalysis samples and only positive findings are reported. The test for blood on the chemical analytic portion of urinalysis may also be positive due to hemoglobinuria and myoglobinuria and if red blood cells are present they are quantified by microscopic examination. [facility] Bacteria Auto Ql (U) None Seen None Se en /hpf [facility] Bilirubin Ql (U) Negative Negative [facility] th Clarity Refractometry automated (U) Clear Clear [facility] Color (U) Yellow Colorless, Yellow [facility] Epithelial cells.squamous Auto (Urine sed) [#/Area] <1 [facility] Glucose Auto test strip (U) [Mass/Vol] Negative Negative mg/dL [facility] Hemoglobin Auto test strip Ql (U) Moderate Abnormal Negative [facility] Interpretation and review of laboratory results Abnormal [facility] Ketones (U) [Mass/Vol] Negative Negative mg/dL [facility] Leukocyte esterase Auto test strip Ql (U) Negative Negative [facility] Mucus Auto (Urine sed) [#/Area] Rare None Seen, Rare /lpf [facility] Nitrite Auto test strip Ql (U) Negative Negative [facility] pH (U) 5.0 [pH] [facility] Protein (U) [Mass/Vol] Negative Negative mg/dL [facility] RBC Auto (Urine sed) [#/Area] 34 High [facility] Specific gravity (U) [Rel density] 1.035 High [facility] Urobilinogen (U) [Mass/Vol] <2.0 <2.0 mg/dL [facility] WBC Auto (Urine sed) [#/Area] 5 [facility] Microscopic examinat ion is performed on all urinalysis samples and only positive findings are reported. The test for blood on the chemical analytic portion of urinalysis may also be positive due to hemoglobinuria and myoglobinuria and if red blood cells are present they are quantified by microscopic examination. [facility] Urine Electrolyteson 020 Chloride (U) [Moles/Vol] 117 mmol/L [facility] Potassium (U) [Moles/Vol] 35.0 mmol/L [facility] Sodium (U) [Moles/Vol] 126 mmol/L [facility] VITAMIN D, TOTAL, 25-OHon 25-Hydroxyvitamin D2+25-Hydroxyvitamin D3 [Mass/Vol] 13 ng/mL Low 30 - 100 ng/mL [facility] Comment on above: Vitamin D status: [...] Interpretation and review of laboratory results Abnormal [facility] Assay performed mallika Lira's chemiluminescence methodology. [facility] XR ABDOMEN /KUB/FLAT PLATE/1 VIEWon 07-08-2020 [...] TueJul 08, 2020 2:22:34 AM EST Normal [facility] Comment on above: Order Comment: RN to call when ready. Injury/Trauma or Illness?:Illness/Other How long have you had these symptoms (acute/chronic)?:Acute Reason for exam?:OG tube placement History of cancer?:NA Surgeries, chemotherapy, or radiation?:NA Type of Exam?:Initial Additional signs and symptoms?:n XR ABDOMEN 1 VIEWon 07-08-20 20 Enteric tube in adeq uate position. Workstation ID: [id number] [facility] Interface, Rad In Fu ji Speechq [...] tube in adequate position. Workstation ID: [id number] [facility] EXAMINATION: XR ABDO MEN /KUB/FLAT PLATE/1 [...] Osseous structures grossly unremarkable. No pathologic calcification. [facility] XR CHEST PA/APon 07-08-2020 XR CHEST [...] 26.9 mmol/L High 22 - 26 mmol/L [facility] Oxygen (Bld) [Partial pressure] 531 mm[Hg] High [facility] CBC WITH AUTO DIFFERENTIALon 07-07-2020 Basophils (Bld) [#/Vol] 0.05 10*3/uL [facility] Basophils/100 WBC (Bld) 0.4 % [facility] Eosinophils (Bld) [#/Vol] 0.39 10*3/uL [facility] Eosinophils/100 WBC (Bld) 3.3 % [facility] Erythrocyte distribution width (RBC) [Entitic vol] 17.2 % High 11.6 - 14.8 % [facility] Hematocrit (Bld) [Volume fraction] 39.7 % Low 41 - 53 % [facility] Hemoglobin (Bld) [Mass/Vol] 12.0 g/dL Low 13.5 - 17.5 g/dL [facility] Immature granulocytes (Bld) [#/Vol] 0.14 10*3/uL [facility] Immature granulocytes/100 WBC (Bld) 1.20 % [facility] Comment on above: The IG parameter is the percentage of metamyelocytes, myelocytes and promyelocytes. An immature granulocyte count (IG) of 1% or more suggests the possibility of infection, an IG count of 3% is very likely related to an infection. Interpretation and review of laboratory results Abnormal [facility] Lymphocytes (Bld) [#/Vol] 4.22 10*3/uL High [facility] Lymphocytes/100 WBC (Bld) 36.1 % [facility] MCH (RBC) [Entitic mass] 22.1 pg Low 26 - 34 pg [facility] MCHC (RBC) [Mass/Vol] 30.2 g/dL Low 31 - 37 g/dL [facility] MCV (RBC) [Entitic vol] 73.1 fL Low 80 - 100 fL [facility] Monocytes (Bld) [#/Vol] 0.88 10*3/uL [facility] Monocytes/100 WBC (Bld) 7.5 % [facility] Neutrophils (Bld) [#/Vol] 6.01 10*3/uL [facility] Neutrophils/100 WBC (Bld) 51.5 % [facility] Nucleated RBC (Bld) [#/Vol] 0.03 10*3/uL High [facility] Nucleated RBC/100 WBC (Bld) [Ratio] 0.3 % [facility] Platelet mean volume (Bld) [Entitic vol] 10.0 fL 9.4 - 12.4 fL [facility] Platelets (Bld) [#/Vol] 237 10*3/uL [facility] RBC (Bld) [#/Vol] 5.43 10*6/uL [facility] WBC (Bld) [#/Vol] 11.69 10*3/uL [facility] COVID-19, [facility]2019 Interpretation and review of laboratory results Normal [facility] SARS-CoV-2 Not Detected Not Detected [facility] Comment on above: This test was perfor med under the FDA's Emergency Use Authorization (EUA). Testing was performed using the [employer] ID NOW COVID-19 assay on the ID NOW platform. This test has not been approved for use in asymptomatic patients and its performance in this patient population has not been evaluated. Negative results do not rule out the presence of SARS-CoV-2/COVID-19. Fact sheets for the EUA can be found at the following links: For Healthcare Providers: https://www.fda.gov/media/160891/download For Patients: https://www.fda.gov/media/780099/download Chem 07-07-2020 Anion gap [Moles/Vol] 15 mmol/L 10 - 20 mmol/L [facility] Chloride [Moles/Vol] 104 mmol/L 98 - 11 1 mmol/L [facility] Creatinine [Mass/Vol] 1.05 mg/dL 1.00 - 1.70 [facility] GFR/1.73 sq M predicted among non-blacks MDRD (S/P/Bld) [Vol rate/Area] The eGFR should be used for monitoring renal function only and not for medication dosing. [facility] GFR/1.73 sq M.predicted CKD-EPI (S/P/Bld) [Vol rate/Area] 47 Low >=60 mL/min/1.73 m2 [facility] GFR/1.73 sq M.predicted CKD-EPI (S/P/Bld) [Vol rate/Area] 41 Low >=60 mL/min/1.73 m2 [facility] Glucose [Mass/Vol] 188 mg/dL High 65 - 99 mg/dL [facility] HCO3 [Moles/Vol] 21 mmol/L 21 - 32 mmol/L [facility] Interpretation and review of laboratory results Abnormal [facility] Potassium [Moles/Vol] 4.2 mmol/L 3.5 - 5.1 mmol/L [facility] Sodium [Moles/Vol] 136 mmol/L 135 - 145 mmol/L [facility] Urea nitrogen [Mass/Vol] 16 mg/dL 8 - 25 mg/dL [facility] Urea nitrogen/Creatinine [Mass ratio] 15.2 mg/mg [facility] Hematologyon 07-07-2020 Hemoglobin (Bld) [Mass/Vol] 12.7 g/dL Low 13.5 - 18 g/dL [facility] pH (Bld) 7.15 [pH] Critically low [facility] INTUBATIONon 07-07-2020 Kinsey Ignacio MD 07/07/2020 [...] to verify the correct patient, procedure, equipment, office support associate and site/side marked as required. Timeout performed [...] the procedure well with no immediate complications [facility] Imm/Pathon 07-07-2020 Specimen source Nom (Unsp spec) Brachial, left [facility] Metabolic Panelon 07-07-2020 CO2 (Bld) [Partial pressure] 77.0 mm[Hg] High [facility] NT Pro BNPon 07-07-2020 Interpretation and review of laboratory results Normal [facility] Natriuretic peptide.B prohormone N-Terminal [Mass/Vol] 266 pg/mL 0 - 300 pg/mL [facility] Pride Study Cut-offs Rule In: < /= 50 Years >450 pg/mL 51 Years - 75 Years >900 pg/mL 76 Years - 99 Years >1800 pg/mL Rule Out: All patients <300 pg/mL [facility] Otheron 07-07-2020 Alveolar-arterial oxygen Partial pressure difference 66.6 mm Hg [facility] Base excess Calc (Bld) [Moles/Vol] -3.5 mmol/L Low [facility] Breath rate setting Ventilator synchronized intermittent mandatory 0 [facility] Hematocrit (BldA) [Volume fraction] 38.8 % Low 41 - 53 % [facility] Inhaled oxygen concentration 100 % [facility] Interpretation and review of laboratory results Abnormal [facility] PEEP Respiratory system 5 [facility] Result Notification dr ignacio [facility] ealt Tidal volume setting Ventilator 500 [facility] Critical result acte d upon time of test. Test performed at bedside. [facility] TROPONINon 07-07-2020 Troponin I.cardiac [Mass/Vol] Normal [facility] Troponin I.cardiac [Mass/Vol] ng/mL <=45 ng/L [facility] XR Chest 1 Viewon 07-07-2020 Interface, [...] cm above the virgie. Workstation ID: [id number] [facility] 1. Nonacute portable chest. 2. Tip of the ET tube is 5.5 cm above the virgie. Workstation ID: [id number] [facility] EXAMINATION: XR CHES T PA/AP 07/07/2020 [...] tube is 5.5 cm above the virgie. [facility] XR FOOT RIGHT 3+ VIEWS (JEREMIAS DARSajan)on 04-22-2020 1. Fracture not iden tified. 2. Degenerative changes. 3. Soft tissue swelling. Workstation ID: [id number] [facility] EXAMINATION: XR FOOT RIGHT 3+ VIEWS [...] swelling noted in the foot and ankle. [facility] Interface, Rad In Fu ji Speechq [...] changes. 3. Soft tissue swelling. Workstation ID: [id number] [facility] POC Glucoseon 01-08-2020 Glucose [Mass/Vol] 127 mg/dL High 65 - 99 mg/dL [facility] Interpretation and review of laboratory results Abnormal [facility] XR Knee Right 2 Views (Stand no)on 01-08-2020 Postsurgical changes without acute osseous abnormality. Workstation ID: [id number] [facility] EXAMINATION: XR KNEE RIGHT 2 VIEWS [...] displaced fracture identified. Surgical tammy are noted. [facility] Interface, Rad In Fu ji Speechq [...] without acute osseous abnormality. Workstation ID: [id number] [facility] CT Knee Right Without Contra ston 01-03-2020 Right knee tricompar tmental osteoarthritis with moderate joint effusion, moderate Morgan's cyst and synovitis. No significant osteoarthritic changes of the right hip and ankle. ST/richard Workstation ID: [id number] [facility] EXAMINATION: CT KNEE RIGHT WITHOUT CONTRAST [...] lateral knee compartment joint space narrowing with pkgj-[id number] appearance, subchondral sclerosis, subchondral cystic changes and [...] edema at the lower leg and ankle. [facility], Rad In Fu ji Speechq - [...] lateral knee compartment joint space narrowing with [id number] appearance, subchondral sclerosis, subchondral cystic changes and [...] tricompartmental osteoarthritis with moderate joint effusion, moderate Morgan's cyst and synovitis. No significant osteoarthritic changes of the right hip and ankle. [employer] Workstation ID: [id number] [facility] Cult, Bloodon 11-12-2019 Cult, Blood Specimen Description .BLOOD Special Requests R AC 2ML Culture NO GROWTH 6 DAYS Report Status FINAL 11/12/2019 Normal [facility] Comment on above: Performed By: #### C JERAMIE SANTANA #### [facility] [address] [place] [address] Director Music: Todd Foster MD Cult,Bloodon 11-12-2019 Cult,Blood Specimen Description .BLOOD Special Requests 10ML R AC Culture NO GROWTH 6 DAYS Report Status FINAL 11/12/2019 Normal [facility] Comment on above: Performed By: #### C ESTHER, CP #### [facility] [address] [place] [address] Director Music: Todd Foster MD Cult,Respiratoryon 0 Cult,Respiratory Specimen [...] REPORTED Trimethoprim/Sulfa <=10 SUSCEPTIBLE Vancomycin 1 SUSCEPTIBLE [facility] Comment on above: Performed By: #### C ESTHER, CP #### [facility] [address] [place] [address] Director Music: Todd Foster MD Brain Natri. Peptideon 11-05 Natriuretic peptide B (Bld) [Mass/Vol] Pro-BNP Reference Range: Normal [facility] Comment on above: Result Comment: Rule Out: <300 Combs Zone: Age <50 300-450 Age 50-75 300-900 Age >75 300-1800 Usually represents mild to moderate HF but other cardiopulmonary causes cannot be ruled out. Rule In: Age <50 >450 Age 50-75 >900 Age >75 >1800 Performed By: #### C DP, CP #### [facility] [address] [place], [place] [phone] Director Music: Todd Foster MD Natriuretic peptide B (Bld) [Mass/Vol] 143 pg/mL Normal <300 [facility] Comment on above: Result Comment: Pro- BNP results cannot be compared to BNP results. Performed By: #### C DP, CP #### [facility] [address] [place] [address] Director Music: Todd Foster MD Brain Natriuretic Peptideon 11-06-2019 Natriuretic peptide B (Bld) [Mass/Vol] Pro-BNP Reference Range: [place], [place] Comment on above: Rule Out: <300 Combs Zone: Age <50 300-450 Age 50-75 300-900 Age >75 300-1800 Usually represents mild to moderate HF but other cardiopulmonary causes cannot be ruled out. Rule In: Age <50 >450 Age 50-75 >900 Age >75 >1800 Natriuretic peptide B (Bld) [Mass/Vol] 143 pg/mL <300 [place] Comment on above: Pro-BNP results [place] ot be compared to BNP results. CBC Auto Differentialon 10-20 Basophils (Bld) [#/Vol] 0.00 10*3/uL [place] Basophils/100 WBC (Bld) 0 % 0 - 2 % [place] Differential Type NOT REPORTED [place] Eosinophils (Bld) [#/Vol] 0.00 10*3/uL [place] Eosinophils/100 WBC (Bld) 1 % 0 - 5 % [place] Erythrocyte distribution width (RBC) [Ratio] 16.5 % High 12.1 - 15.2 % [place] Hematocrit (Bld) [Volume fraction] 38.4 % Low 41 - 53 % [place] Hemoglobin (Bld) [Mass/Vol] 11.9 g/dL Low 13.5 - 17.5 g/dL [place] Interpretation and review of laboratory results Abnormal [place] Lymphocytes (Bld) [#/Vol] 1.00 10*3/uL [place] Lymphocytes/100 WBC (Bld) 22 % 13 - 44 % [place] MCH (RBC) [Entitic mass] 22.6 pg Low 26 - 34 pg [place] MCHC (RBC) [Mass/Vol] 31.1 g/dL 31 - 37 g/dL [place] MCV (RBC) [Entitic vol] 72.8 fL Low 80 - 100 fL [place] Monocytes (Bld) [#/Vol] 0.50 10*3/uL [place] Monocytes/100 WBC (Bld) 11 % High 5 - 9 % [place] Platelet mean volume (Bld) [Entitic vol] NOT REPORTED 6 - 12 fL [place] Platelets (Bld) [#/Vol] NOT REPORTED [place] Platelets (Bld) [#/Vol] 134 10*3/uL Low [place] RBC (Bld) [#/Vol] 5.28 10*6/uL 4.5 - 5.9 m/uL [place] RBC morphology finding Nom (Bld) NOT REPORTED [place] Segmented neutrophils/100 WBC (Bld) 66 % 39 - 75 % [place] Segs Absolute 3.00 [place] WBC (Bld) [#/Vol] 4.4 10*3/uL [place] WBC (Bld) [#/Vol] NOT REPORTED per 100 WBC [place] WBC Morphology NOT REPORTED [place] CBC with Diffon 11-06-2019 Abs. Basophil 0.00 k/uL Normal 0.0-0.2 [facility] Comment on above: Performed By: #### C ESTHER CP #### [facility] [address] [place] [address] Director Music: Todd Foster MD Abs.Neutrophil (Seg) 3.00 k/uL Normal 2.1-6.5 [facility] Comment on above: Performed By: #### C ESTHER, CP #### [facility] [address] [place], [place] [phone] Director Music: Todd Foster MD Basophils/100 WBC (Bld) 0 % Normal 0-2 [facility] Comment on above: Performed By: #### C DP, CP #### [facility] [address] [place], [place] [id number] Director Music: Todd Foster MD Eosinophils (Bld) [#/Vol] 0.00 10*3/uL Normal 0.0-0.4 [facility] Comment on above: Performed By: #### C DP, CP #### [facility] [address] [place] [address] Director Music: Todd Foster MD Eosinophils/100 WBC (Bld) 1 % Normal 0-5 [facility] Comment on above: Performed By: #### C DP, CP #### [facility] [address] [place] [address] Director Music: Todd Foster MD Lymphocytes (Bld) [#/Vol] 1.00 10*3/uL Normal 1.0-4.8 [facility] Comment on above: Performed By: #### C DP, CP #### [facility] [address] [place] [address] Director Music: Todd Foster MD Lymphocytes/100 WBC (Bld) 22 % Normal 13-44 [facility] Comment on above: Performed By: #### C DP, CP #### [facility] [address] [place] [address] Director Music: Todd Foster MD Monocytes (Bld) [#/Vol] 0.50 10*3/uL Normal 0.0-1.0 [facility] Comment on above: Performed By: #### C DP, CP #### [facility] [address] [place] [address] Director Music: Todd Foster MD Monocytes/100 WBC (Bld) 11 % High 5-9 [facility] Comment on above: Performed By: #### C DP, CP #### [facility] [address] [place] [address] Director Music: Todd Foster MD Neutrophil (Seg) 66 % Normal 39-75 [facility] Comment on above: Performed By: #### C DP, CP #### [facility] [address] [place] [address] Director Music: Todd Foster MD Erythrocyte distribution width (RBC) [Ratio] 16.5 % High 12.1-15.2 [facility] Comment on above: Performed By: #### C DP, CP #### [facility] [address] [place] [address] Director Music: Todd Foster MD Hematocrit (Bld) [Volume fraction] 38.4 % Low 41-53 [facility] Comment on above: Performed By: #### C DP, CP #### [facility] [address] [place] [address] Director Music: Todd Foster MD Hemoglobin (Bld) [Mass/Vol] 11.9 g/dL Low 13.5-17.5 [facility] Comment on above: Performed By: #### C DP, CP #### [facility] [address] [place] [address] Director Music: Todd Foster MD MCH (RBC) [Entitic mass] 22.6 pg Low 26-34 [facility] Comment on above: Performed By: #### C DP, CP #### [facility] [address] [place] [address] Director Music: Todd Foster MD MCHC (RBC) [Mass/Vol] 31.1 g/dL Normal 31-37 [facility] Comment on above: Performed By: #### C DP, CP #### [facility] [address] [place] [address] Director Music: Todd Foster MD MCV (RBC) [Entitic vol] 72.8 fL Low 80-100 [facility] Comment on above: Performed By: #### C DP, CP #### [facility] [address] [place] [address] Director Music: Todd Foster MD Platelets (Bld) [#/Vol] 134 10*3/uL Low 140-450 [facility] Comment on above: Performed By: #### C DP, CP #### [facility] [address] [place] [address] Director Music: Todd Foster MD RBC (Bld) [#/Vol] 5.28 10*6/uL Normal 4.5-5.9 [facility] Comment on above: Performed By: #### C DP, CP #### [facility] [address] [place] [address] Director Music: Todd Foster MD WBC (Bld) [#/Vol] 4.4 10*3/uL Normal 3.5-11.0 [facility] Comment on above: Performed By: #### C DP, CP #### [facility] [address] [place] [address] Director Music: Todd Foster MD Abs.Imm.Granulocyte NOT REPORTED Normal 0.00-0.30 [facility] Comment on above: Performed By: #### C DP, CP #### [facility] [address] [place] [address] Director Music: Todd Foster MD Auto Diff Performed NOT REPORTED Normal [facility] Comment on above: Performed By: #### C DP, CP #### [facility] [address] [place] [address] Director Music: Todd Foster MD Immature granulocytes (Bld) [#/Vol] NOT REPORTED Normal 0 [facility] Comment on above: Performed By: #### C DP, CP #### [facility] [address] [place] [address] [phone] Director Music: Todd Foster MD NRBC Automated NOT REPORTED Normal [facility] Comment on above: Performed By: #### C DP, CP #### [facility] [address] [place] [address] [phone] Director Music: Todd Foster MD Platelet mean volume (Bld) [Entitic vol] NOT REPORTED Normal 6.0-12.0 [facility] Comment on above: Performed By: #### C DP, CP #### [facility] [address] [place] [address] [phone] Director Music: Todd Foster MD Platelets (Bld) [#/Vol] NOT REPORTED Normal [facility] Comment on above: Performed By: #### C DP, CP #### [facility] [address] [place] [address] Director Music: Todd Foster MD RBC morphology finding Nom (Bld) NOT REPORTED Normal [facility] Comment on above: Performed By: #### C DP, CP #### [facility] [address] [place] [address] Director Music: Todd Foster MD WBC Morphology NOT REPORTED Normal [facility] Comment on above: Performed By: #### C DP, CP #### [facility] [address] [place], [place] [phone] Director Music: Todd Foster MD CT CHEST WO CONTRASTon 11-05 CT CHEST WO CONTRAST EXAMINATION: CT SANDIP ST WO CONTRAST HISTORY: Abn cxr with [...] Antony Molina MD 11/06/19 Final result Normal [facility] Jhony, Mhpn Incoming R adiant Results From [employer] - 11/06/2019 5:40 AM EDT EXAMINATION: CT [...] findings are seen. 2. Mild bilateral gynecomastia. [place] 1. Findings consiste nt with multifocal small airway infection, most prominent in the left lower lobe. No other acute cardiopulmonary findings are seen. 2. Mild bilateral gynecomastia. [place] EXAMINATION: CT CHES T WO CONTRAST [...] noted. No acute osseous abnormality is seen. [place] Comp Metabolic Profon 2019 (cont.) Normal [facility] Comment on above: Result Comment: Aver age GFR for 50-59 years old: 93 mL/min/1.73sq m Chronic Kidney Disease: <60 mL/min/1.73sq m Kidney failure: <15 mL/min/1.73sq m eGFR calculated using average adult body mass. Additional eGFR calculator available at: http://www.[employer].Urlist/multiple_crcl_2011.htm Performed By: #### C DP, CP #### [facility] [address] [place], [place] [phone] Director Music: Todd Foster MD Albumin [Mass/Vol] 4.3 g/dL Normal 3.5-5.2 [facility] Comment on above: Performed By: #### C DP, CP #### [facility] [address] [place], [place] [phone] Director Music: Todd Foster MD Alkaline Phos 78 U/L Normal 40-129 [facility] Comment on above: Performed By: #### C DP, CP #### [facility] [address] [place], [place] [id number] Director Music: Todd Foster MD ALT [Catalytic activity/Vol] 32 U/L Normal 5-41 [facility] Comment on above: Performed By: #### C DP, CP #### [facility] [address] [place], [place] [phone] Director Music: Todd Foster MD Anion gap [Moles/Vol] 12 mmol/L Normal 9-17 [facility] Comment on above: Performed By: #### C DP, CP #### [facility] [address] [place], [place] [phone] Director Music: Todd Foster MD AST [Catalytic activity/Vol] 40 U/L High <40 [facility] Comment on above: Performed By: #### C DP, CP #### [facility] [address] [place], [place] [phone] Director Music: Todd Foster MD Bilirubin Ql (U) 0.78 mg/dL Normal 0.30-1.20 [facility] Comment on above: Performed By: #### C DP, CP #### [facility] [address] [place], [place] [phone] Director Music: Todd Foster MD BUN/CRE Ratio 22 High 9-20 [facility] Comment on above: Performed By: #### C DP, CP #### [facility] [address] [place] [address] Director Music: Todd Foster MD Calcium [Mass/Vol] 9.5 mg/dL Normal 8.6-10.4 [facility] Comment on above: Performed By: #### C DP, CP #### [facility] [address] [place] [address] Director Music: Todd Foster MD Chloride [Moles/Vol] 96 mmol/L Low 98-107 [facility] Comment on above: Performed By: #### C DP, CP #### [facility] [address] [place] [address] Director Music: Todd Foster MD CO2 [Moles/Vol] 26 mmol/L Normal 20-31 [facility] Comment on above: Performed By: #### C DP, CP #### [facility] [address] [place] [address] Director Music: Todd Foster MD Creatinine [Mass/Vol] 0.69 mg/dL Low 0.70-1.20 [facility] Comment on above: Performed By: #### C DP, CP #### [facility] [address] [place] [address] Director Music: Todd Foster MD GFR, Amer >60 Normal >60 [facility] Comment on above: Performed By: #### C DP, CP #### [facility] [address] [place], [place] [id number] Director Music: Todd Foster MD GFR,non Amer >60 Normal >60 [facility] Comment on above: Performed By: #### C DP, CP #### [facility] [address] [place] [address] Director Music: Todd Foster MD Glucose [Mass/Vol] 113 mg/dL High 70-99 [facility] Comment on above: Performed By: #### C DP, CP #### [facility] [address] [place], [place] [id number] Director Music: Todd Foster MD Potassium [Moles/Vol] 4.3 mmol/L Normal 3.7-5.3 [facility] Comment on above: Performed By: #### C DP, CP #### [facility] [address] [place], [place] [id number] Director Music: Todd Foster MD Protein [Mass/Vol] 9.3 g/dL High 6.4-8.3 [facility] Comment on above: Performed By: #### C DP, CP #### [facility] [address] [place] [address] Director Music: Todd Foster MD Sodium [Moles/Vol] 134 mmol/L Low 135-144 [facility] Comment on above: Performed By: #### C DP, CP #### [facility] [address] [place] [address] Director Music: Todd Foster MD Urea nitrogen [Mass/Vol] 15 mg/dL Normal 6-20 [facility] Comment on above: Performed By: #### C DP, CP #### [facility] [address] [place] [address] Director Music: Todd Foster MD Albumin/Globulin [Mass ratio] NOT REPORTED Normal 1.0-2.5 [facility] Comment on above: Performed By: #### C DP, CP #### [facility] [address] [place] [address] Director Music: Todd Foster MD Staging: NOT REPORTED Normal [facility] Comment on above: Performed By: #### C DP, CP #### [facility] [address] [place] [address] Director Music: Todd Foster MD [facility] Metabolic [facility] 11-06-2019 Albumin [Mass/Vol] 4.3 g/dL 3.5 - 5.2 g/dL [place] Albumin/Globulin [Mass ratio] NOT REPORTED [place] ALP [Catalytic activity/Vol] 78 U/L 40 - 129 U/L [place] ALT [Catalytic activity/Vol] 32 U/L 5 - 41 U/L [place] Anion gap [Moles/Vol] 12 mmol/L 9 - 17 mmol/L [place] AST [Catalytic activity/Vol] 40 U/L High <40 [place] Bilirubin Ql (U) 0.78 mg/dL 0.3 - 1.2 mg/dL [place] Bun/Cre Ratio 22 High [place] Calcium [Mass/Vol] 9.5 mg/dL 8.6 - 10. 4 mg/dL [place] Chloride [Moles/Vol] 96 mmol/L Low 98 - 10 7 mmol/L [place] CO2 [Moles/Vol] 26 mmol/L 20 - 31 mmol/L [place] Creatinine [Mass/Vol] 0.69 mg/dL Low 0.7 - 1.2 mg/dL [place] GFR >60 >60 mL/min [place] GFR Non- >60 >60 mL/min [place] GFR/1.73 sq M predicted among non-blacks MDRD (S/P/Bld) [Vol rate/Area] NOT REPORTED [place] GFR/1.73 sq M predicted among non-blacks MDRD (S/P/Bld) [Vol rate/Area] [place] Comment on above: Average GFR for 50-5 9 years old: 93 mL/min/1.73sq m Chronic Kidney Disease: <60 mL/min/1.73sq m Kidney failure: <15 mL/min/1.73sq m eGFR calculated using average adult body mass. Additional eGFR calculator available at: http://www.[employer]/multiple_crcl_2012.htm Glucose [Mass/Vol] 113 mg/dL High 70 - 99 mg/dL [place] Interpretation and review of laboratory results Abnormal [place] Potassium [Moles/Vol] 4.3 mmol/L 3.7 - 5.3 mmol/L [place] Protein [Mass/Vol] 9.3 g/dL High 6.4 - 8.3 g/dL [place] Sodium [Moles/Vol] 134 mmol/L Low 135 - 144 mmol/L [place] Urea nitrogen [Mass/Vol] 15 mg/dL 6 - 20 mg/dL [place] EKG 12 Leadon 11-06-2019 Atrial Rate 95 BPM [place] P [place] 53 degrees [place] P-R Interval 148 ms [place] Q-T Interval 344 ms [place] QRS Duration 80 ms [place] QTc Calculation (Bazett) 432 ms [place] R [place] 49 degrees [place] T [place] 45 degrees [place] Ventricular Rate 95 BPM [place] Normal sinus rhythm Normal ECG When compared with ECG of 04-MAR-2019 11:51, No significant change was found [place] Jhony, Mhpn Incoming E kg Results From [email or web address] [place] - 11/06/2019 7:40 AM EDT Normal sinus rhythm Normal ECG When compared with ECG of 04-MAR-2019 11:51, No significant change was found [place] Flu A/B Ag Detectionon 11-05 Flu A/B Ag Detection Specimen Descriptio n .NASOPHARYNGEAL SWAB Special Requests NOT REPORTED Direct Exam POSITIVE for Influenza A Antigen NEGATIVE for Influenza B Antigen Report Status FINAL 11/06/2019 Normal [facility] Comment on above: Performed By: #### C JERAMIE SANTANA #### [facility] [address] [place] [address] Director Music: Todd Fosetr MD Lactate, Sepsison 11-06-2019 Lactic Acid, Sepsis 1.2 mmol/L Normal 0.5-1.9 [facility] Comment on above: Performed By: #### C DP, CP #### [facility] [address] [place] [address] Director Music: Todd Foster MD Lactic Acid,Sep Wbld NOT REPORTED Normal 0.5-1.9 [facility] Comment on above: Performed By: #### C DP, CP #### [facility] [address] [place] [id number] Director Music: Todd Foster MD Lactic Acid, Sepsis 1.2 mmol/L 0.5 - 1. 9 mmol/L [place] Lactic Acid, Sepsis, Whole Blood NOT REPORTED 0.5 - 1.9 mmol/L [place] Lactic Acidon 11-06-2019 Lactate [Moles/Vol] 1.2 mmol/L Normal 0.5-2.2 [facility] Comment on above: Performed By: #### C DP, CP #### [facility] [address] [place] [phone] Director Music: Todd Foster MD Lactate [Moles/Vol] 1.2 mmol/L 0.5 - 2. 2 mmol/L [place] Otheron 11-06-2019 Immature granulocytes (Bld) [#/Vol] NOT REPORTED [place] POC PANEL (G3)-ARTon 020 aPTT Coag (Bld) [Time] NOT REPORTED [place] FIO2 NOT REPORTED [place] Interpretation and review of laboratory results Abnormal [place] Negative Base Excess, Art NOT REPORTED [place] O2 Device/Flow/% NOT REPORTED [place] Oxygen saturation in Blood 96 % 95 - 98 % [place] POC HCO3 26.6 mmol/L High 22 - 26 mmol/L [place] POC pCO2 39 [place] POC pCO2 Temp NOT REPORTED mm Hg [place] POC pH 7.45 [place] POC pH Temp NOT REPORTED [place] POC PO2 80 [place] POC pO2 Temp NOT REPORTED mm Hg [place] Positive Base Excess, Art 3 High [place] TCO2 (calc), Art 28 mmol/L 24 - 30 mmol/L [place] Rapid influenza A/B antigens on 11-06-2019 Direct Exam Positive Abnormal [place] Direct Exam Negative [place] Interpretation and review of laboratory results Abnormal [place] Special Requests NOT REPORTED [place] Specimen Description .NASOPHARYNGEAL SWAB [place] XR CHEST PORTABLEon 11-06-19 XR CHEST [...] Dean Means MD 11/06/19 Final result Normal [facility] Hyperaeration/chroni c changes as well as mild bibasilar streaky opacity, nonspecific. The findings may represent atelectasis or pneumonitis. Further evaluation with follow-up CT chest exam is recommended. [place] Jhony, Mhpn Incoming R adiant Results From [facility] - 11/06/2019 2:17 AM EDT EXAM: XR [...] with follow-up CT chest exam is recommended. [place] EXAM: XR CHEST BERTRAM BLE HISTORY: [...] deformity. Surgical clips overlie the left neck. [place] CBC WITH AUTO DIFFERENTIALon 04-03-2019 Basophils (Bld) [#/Vol] 0.01 10*3/uL [facility] Basophils/100 WBC (Bld) 0.3 % [facility] Eosinophils (Bld) [#/Vol] 0.06 10*3/uL [facility] Eosinophils/100 WBC (Bld) 1.9 % [facility] Erythrocyte distribution width (RBC) [Entitic vol] 16.0 % High 11.6 - 14.8 % [facility] Hematocrit (Bld) [Volume fraction] 38.2 % Low 41 - 53 % [facility] Hemoglobin (Bld) [Mass/Vol] 11.9 g/dL Low 13.5 - 17.5 g/dL [facility] Immature granulocytes (Bld) [#/Vol] 0.01 10*3/uL [facility] Immature granulocytes/100 WBC (Bld) 0.30 % [facility] Comment on above: The IG parameter is the percentage of metamyelocytes, myelocytes, and promyelocytes. Interpretation and review of laboratory results Abnormal [facility] Lymphocytes (Bld) [#/Vol] 1.06 10*3/uL [facility] Lymphocytes/100 WBC (Bld) 33.2 % [facility] MCH (RBC) [Entitic mass] 22.2 pg Low 26 - 34 pg [facility] MCHC (RBC) [Mass/Vol] 31.2 g/dL 31 - 37 g/dL [facility] MCV (RBC) [Entitic vol] 71.1 fL Low 80 - 100 fL [facility] Monocytes (Bld) [#/Vol] 0.29 10*3/uL Low [facility] Monocytes/100 WBC (Bld) 9.1 % [facility] Neutrophils (Bld) [#/Vol] 1.76 10*3/uL [facility] Neutrophils/100 WBC (Bld) 55.2 % [facility] Comment on above: Peripheral smear rev iewed manually Nucleated RBC (Bld) [#/Vol] 0.00 10*3/uL [facility] Nucleated RBC/100 WBC (Bld) [Ratio] 0.0 % [facility] Platelet mean volume (Bld) [Entitic vol] 11.2 fL 9 - 15.5 fL [facility] Platelets (Bld) [#/Vol] 128 10*3/uL Low [facility] RBC (Bld) [#/Vol] 5.37 10*6/uL [facility] WBC (Bld) [#/Vol] 3.19 10*3/uL Low [facility] Chem 7on 04-03-2019 Anion gap [Moles/Vol] 10 mmol/L 10 - 20 mmol/L [facility] Chloride [Moles/Vol] 104 mmol/L 98 - 10 8 mmol/L [facility] Creatinine [Mass/Vol] 0.82 mg/dL 0.5 - 1.3 mg/dL [facility] GFR/1.73 sq M predicted among non-blacks MDRD (S/P/Bld) [Vol rate/Area] The eGFR should be used for monitoring renal function only and not for medication dosing. [facility] GFR/1.73 sq M.predicted CKD-EPI (S/P/Bld) [Vol rate/Area] 102 >=60 mL/min/1.73 m2 [facility] Glucose [Mass/Vol] 100 mg/dL High 65 - 99 mg/dL [facility] HCO3 [Moles/Vol] 28 mmol/L 21 - 32 mmol/L [facility] Interpretation and review of laboratory results Abnormal [facility] Potassium [Moles/Vol] 4.1 mmol/L 3.5 - 5.1 mmol/L [facility] Sodium [Moles/Vol] 138 mmol/L 135 - 145 mmol/L [facility] Urea nitrogen [Mass/Vol] 15 mg/dL 8 - 25 mg/dL [facility] Urea nitrogen/Creatinine [Mass ratio] 18.3 mg/mg [facility] ECG 12-LEADon 04-03-2019 Atrial Rate 56 BPM [facility] P [place] 3 degrees [facility] P-R Interval 154 ms [facility] Q-T Interval 446 ms [facility] QRS Duration 86 ms [facility] QTC Calculation (Bezet) 430 ms [facility] R [place] 55 degrees [facility] T [place] 52 degrees [facility] Ventricular Rate 56 BPM [facility] Sinus bradycardia Ot herwise normal ECG ECG Cart Interpretation see physician note for interpretation. Confirmed by Tamara Obando ([id number]) on 04/03/2019 10:38:52 AM [facility] Kinsey Ignacio MD 04/03/2019 10:14 AM ECG 12 Lead Date/Time: 04/03/2019 10:12 AM Performed by: Kinsey Ignacio MD Authorized by: Kinsey Ignacio MD Comparison: compared with previous ECG Rhythm: sinus rhythm BPM: 56 Conduction: conduction normal ST Segments: ST segments normal T Waves: T waves normal normal GA interval normal QRS interval normal QT interval Clinical impression: normal ECG [facility] MORPHOLOGYon 04-03-2019 Anisocytosis Ql (Bld) 2+ [facility] Roe cells LM Ql (Bld) 1+ [facility] Hypochromia Ql (Bld) 2+ [facility] Microcytes Ql (Bld) 2+ [facility] ealth NT Pro BNPon 04-03-2019 Interpretation and review of laboratory results Normal [facility] Natriuretic peptide.B prohormone N-Terminal [Mass/Vol] 83 pg/mL 0 - 300 pg/mL [facility] Comment on above: Please note reference range change as of 08/09/18. [employer] Cut-offs Rule In: < /= 50 Years >450 pg/mL 51 Years - 75 Years >900 pg/mL 76 Years - 99 Years >1800 pg/mL Rule Out: All patients <300 pg/mL [facility] TROPONINon 04-03-2019 Troponin I.cardiac [Mass/Vol] Normal [facility] Troponin I.cardiac [Mass/Vol] ng/mL <=45 ng/L [facility] XR Chest 1 Viewon 04-03-2019 EXAMINATION: XR CHES T PA/AP, 04/03/2019 HISTORY: SHORTNESS OF BREATH COMPARISON: Chest, 03/04/2019. FINDINGS: Cardiac size, mediastinal contour and pulmonary vascularity are within normal limits. The lungs are well expanded and clear. [facility] No acute cardiopulmo nary disease. Workstation ID: [id number] [facility] Interface, Rad In Fu ji Speechq - 04/03/2019 9:00 AM EDT EXAMINATION: XR CHEST PA/AP, 04/03/2019 HISTORY: SHORTNESS OF BREATH COMPARISON: Chest, 03/04/2019. FINDINGS: Cardiac size, mediastinal contour and pulmonary vascularity are within normal limits. The lungs are well expanded and clear. IMPRESSION: No acute cardiopulmonary disease. Workstation ID: [id number] [facility] Basic Metab w/rfx MGon 03-04 (cont.) Normal [facility] Comment on above: Result Comment: Aver age GFR for 50-59 years old: 93 mL/min/1.73sq m Chronic Kidney Disease: <60 mL/min/1.73sq m Kidney failure: <15 mL/min/1.73sq m eGFR calculated using average adult body mass. Additional eGFR calculator available at: http://www.[employer]/multiple_crcl_2012.htm Performed By: #### B MPX, BNP, TROPI, TSHX, CDP #### [facility] [address] [place] [address] Director Music: Todd Foster MD Anion gap [Moles/Vol] 11 mmol/L Normal -17 [facility] Comment on above: Performed By: #### B MPX, BNP, TROPI, TSHX, CDP #### [facility] [address] [place] [address] Director Music: Todd Foster MD BUN/CRE Ratio 20 Normal - [facility] Comment on above: Performed By: #### B MPX, BNP, TROPI, TSHX, CDP #### [facility] [address] [place] [address] Director Music: Todd Foster MD Calcium [Mass/Vol] 9.4 mg/dL Normal 8.6-10.4 [facility] Comment on above: Performed By: #### B MPX, BNP, TROPI, TSHX, CDP #### [facility] [address] [place] [address] Director Music: Todd Foster MD Chloride [Moles/Vol] 100 mmol/L Normal 98-107 [facility] Comment on above: Performed By: #### B MPX, BNP, TROPI, TSHX, CDP #### [facility] [address] [place] [address] Director Music: Todd Foster MD CO2 [Moles/Vol] 27 mmol/L Normal 20-31 [facility] Comment on above: Performed By: #### B MPX, BNP, TROPI, TSHX, CDP #### [facility] [address] [place] [address] Director Music: Todd Foster MD Creatinine [Mass/Vol] 0.59 mg/dL Low 0.70-1.20 [facility] Comment on above: Performed By: #### B MPX, BNP, TROPI, TSHX, CDP #### [facility] [address] [place] [address] Director Music: Todd Foster MD GFR, Amer >60 Normal >60 [facility] Comment on above: Performed By: #### B MPX, BNP, TROPI, TSHX, CDP #### [facility] [address] [place] [phone] Director Music: Todd Foster MD GFR,non Amer >60 Normal >60 [facility] Comment on above: Performed By: #### B MPX, BNP, TROPI, TSHX, CDP #### [facility] [address] [place] [address] Director Music: Todd Foster MD Glucose [Mass/Vol] 113 mg/dL High 70-99 [facility] Comment on above: Performed By: #### B MPX, BNP, TROPI, TSHX, CDP #### [facility] [address] [place], [place] [id number] Director Music: Todd Foster MD Potassium [Moles/Vol] 4.4 mmol/L Normal 3.7-5.3 [facility] Comment on above: Performed By: #### B MPX, BNP, TROPI, TSHX, CDP #### [facility] [address] [place] [address] Director Music: Todd Foster MD Sodium [Moles/Vol] 138 mmol/L Normal 135-144 [facility] Comment on above: Performed By: #### B MPX, BNP, TROPI, TSHX, CDP #### [facility] [address] [place], [place] [id number] Director Music: Todd Foster MD Urea nitrogen [Mass/Vol] 12 mg/dL Normal 6-20 [facility] Comment on above: Performed By: #### B MPX, BNP, TROPI, TSHX, CDP #### [facility] [address] [place] [address] Director Music: Todd Foster MD Staging: NOT REPORTED Normal [facility] Comment on above: Performed By: #### B MPX, BNP, TROPI, TSHX, CDP #### [facility] [address] [place] [address] Director Music: Todd Foster MD Brain Natri. Peptideon 03-04 Natriuretic peptide B (Bld) [Mass/Vol] Pro-BNP Reference Range: Normal [facility] Comment on above: Result Comment: Rule Out: <300 Combs Zone: Age <50 300-450 Age 50-75 300-900 Age >75 300-1800 Usually represents mild to moderate HF but other cardiopulmonary causes cannot be ruled out. Rule In: Age <50 >450 Age 50-75 >900 Age >75 >1800 Performed By: #### B MPX, BNP, TROPI, TSHX, CDP #### [facility] [address] [place] [address] Director Music: Todd Foster MD Natriuretic peptide B (Bld) [Mass/Vol] 568 pg/mL High <300 [facility] Comment on above: Result Comment: Pro- BNP results cannot be compared to BNP results. Performed By: #### B MPX, BNP, TROPI, TSHX, CDP #### [facility] [address] [place] [phone] Director Music: Todd Foster MD CBC with Diffon 03-04-2019 Abs. Basophil Normal 0.0-0.2 [facility] Comment on above: Performed By: #### B MPX, BNP, TROPI, TSHX, CDP #### [facility] [address] [place] [phone] Director Music: Todd Foster MD Abs.Neutrophil (Seg) 1.35 k/uL Low 2.1-6.5 [facility] Comment on above: Performed By: #### B MPX, BNP, TROPI, TSHX, CDP #### [facility] [address] [place] [phone] Director Music: Todd Foster MD Basophils/100 WBC (Bld) Normal 0-2 [facility] Comment on above: Performed By: #### B MPX, BNP, TROPI, TSHX, CDP #### [facility] [address] [place] [phone] Director Music: Todd Foster MD Eosinophils (Bld) [#/Vol] 0.05 10*3/uL Normal 0.0-0.4 [facility] Comment on above: Performed By: #### B MPX, BNP, TROPI, TSHX, CDP #### [facility] [address] [place] [address] Director Music: Todd Foster MD Eosinophils/100 WBC (Bld) 2 % Normal 0-5 [facility] Comment on above: Performed By: #### B MPX, BNP, TROPI, TSHX, CDP #### [facility] [address] [place] [address] Director Music: Todd Foster MD Lymphocytes (Bld) [#/Vol] 1.08 10*3/uL Normal 1.0-4.8 [facility] Comment on above: Performed By: #### B MPX, BNP, TROPI, TSHX, CDP #### [facility] [address] [place] [address] Director Music: Todd Foster MD Lymphocytes/100 WBC (Bld) 40 % Normal 13-44 [facility] Comment on above: Performed By: #### B MPX, BNP, TROPI, TSHX, CDP #### [facility] [address] [place] [address] Director Music: Todd Foster MD Monocytes (Bld) [#/Vol] 0.22 10*3/uL Normal 0.0-1.0 [facility] Comment on above: Performed By: #### B MPX, BNP, TROPI, TSHX, CDP #### [facility] [address] [place] [address] Director Music: Todd Foster MD Monocytes/100 WBC (Bld) 8 % Normal 5-9 [facility] Comment on above: Performed By: #### B MPX, BNP, TROPI, TSHX, CDP #### [facility] [address] [place] [address] Director Music: Todd Foster MD Morphology Julián (Bld) [Interp] Manual Differential Performed Normal [facility] Comment on above: Performed By: #### B MPX, BNP, TROPI, TSHX, CDP #### [facility] [address] [place] [address] Director Music: Todd Foster MD Neutrophil (Seg) 50 % Normal 39-75 [facility] Comment on above: Performed By: #### B MPX, BNP, TROPI, TSHX, CDP #### [facility] [address] [place] [address] Director Music: Todd Foster MD Total Cells Counted 50 Normal [facility] Comment on above: Performed By: #### B MPX, BNP, TROPI, TSHX, CDP #### [facility] [address] [place] [address] Director Music: Todd Foster MD Erythrocyte distribution width (RBC) [Ratio] 16.3 % High 12.1-15.2 [facility] Comment on above: Performed By: #### B MPX, BNP, TROPI, TSHX, CDP #### [facility] [address] [place] [address] Director Music: Todd Foster MD Hematocrit (Bld) [Volume fraction] 34.7 % Low 41-53 [facility] Comment on above: Performed By: #### B MPX, BNP, TROPI, TSHX, CDP #### [facility] [address] [place] [address] Director Music: Todd Foster MD Hemoglobin (Bld) [Mass/Vol] 11.1 g/dL Low 13.5-17.5 [facility] Comment on above: Performed By: #### B MPX, BNP, TROPI, TSHX, CDP #### [facility] [address] [place] [address] Director Music: Todd Foster MD MCH (RBC) [Entitic mass] 23.3 pg Low 26-34 [facility] Comment on above: Performed By: #### B MPX, BNP, TROPI, TSHX, CDP #### [facility] [address] [place] [address] Director Music: Todd Foster MD MCHC (RBC) [Mass/Vol] 32.1 g/dL Normal 31-37 [facility] Comment on above: Performed By: #### B MPX, BNP, TROPI, TSHX, CDP #### [facility] [address] [place] [address] Director Music: Todd Foster MD MCV (RBC) [Entitic vol] 72.5 fL Low 80-100 [facility] Comment on above: Performed By: #### B MPX, BNP, TROPI, TSHX, CDP #### [facility] [address] [place] [address] Director Music: Todd Foster MD Platelets (Bld) [#/Vol] 127 10*3/uL Low 140-450 [facility] Comment on above: Performed By: #### B MPX, BNP, TROPI, TSHX, CDP #### [facility] [address] [place] [address] Director Music: Todd Foster MD RBC (Bld) [#/Vol] 4.79 10*6/uL Normal 4.5-5.9 [facility] Comment on above: Performed By: #### B MPX, BNP, TROPI, TSHX, CDP #### [facility] [address] [place] [address] Director Music: Todd Foster MD WBC (Bld) [#/Vol] 2.7 10*3/uL Critically low 3.5-11.0 [facility] Comment on above: Performed By: #### B MPX, BNP, TROPI, TSHX, CDP #### [facility] [address] [place] [address] Director Music: Todd Foster MD Abs.Imm.Granulocyte NOT REPORTED Normal 0.00-0.30 [facility] Comment on above: Performed By: #### B MPX, BNP, TROPI, TSHX, CDP #### [facility] [address] [place] [address] Director Music: Todd Foster MD Auto Diff Performed NOT REPORTED Normal [facility] Comment on above: Performed By: #### B MPX, BNP, TROPI, TSHX, CDP #### [facility] [address] [place] [address] Director Music: Todd Foster MD Immature granulocytes (Bld) [#/Vol] NOT REPORTED Normal 0 [facility] Comment on above: Performed By: #### B MPX, BNP, TROPI, TSHX, CDP #### [facility] [address] [place] [address] Director Music: Todd Foster MD NRBC Automated NOT REPORTED Normal [facility] Comment on above: Performed By: #### B MPX, BNP, TROPI, TSHX, CDP #### [facility] [address] [place], [place] [id number] Director Music: Todd Foster MD Platelet mean volume (Bld) [Entitic vol] NOT REPORTED Normal 6.0-12.0 [facility] Comment on above: Performed By: #### B MPX, BNP, TROPI, TSHX, CDP #### [facility] [address] [place] [address] Director Music: Todd Foster MD Platelets (Bld) [#/Vol] NOT REPORTED Normal [facility] Comment on above: Performed By: #### B MPX, BNP, TROPI, TSHX, CDP #### [facility] [address] [place] [address] Director Music: Todd Foster MD RBC morphology finding Nom (Bld) NOT REPORTED Normal [facility] Comment on above: Performed By: #### B MPX, BNP, TROPI, TSHX, CDP #### [facility] [address] [place] [address] Director Music: Todd Foster MD WBC Morphology NOT REPORTED Normal [facility] Comment on above: Performed By: #### B MPX, BNP, TROPI, TSHX, CDP #### [facility] [address] [place] [address] Director Music: Todd Foster MD TSH w/reflex to FT4on 2018 TSH Qn 4.13 m[IU]/L Normal 0.30-5.00 [facility] Comment on above: Performed By: #### B MPX, BNP, TROPI, TSHX, CDP #### [facility] [address] [place] [address] Director Music: Todd Foster MD Troponinon 03-04-2019 Troponin I.cardiac [Mass/Vol] ng/mL Normal <0.03 [facility] Comment on above: Result Comment: Trop onin T results cannot be compared to Troponin-I results. Performed By: #### B MPX, BNP, TROPI, TSHX, CDP #### [facility] [address] [place] [phone] Director Music: Todd Foster MD Troponin I.cardiac [Mass/Vol] Normal [facility] Comment on above: Result Comment: [...] B MPX, BNP, TROPI, TSHX, CDP #### [facility] [address] [place] [address] Director Music: Todd Foster MD Troponin I.cardiac [Mass/Vol] NOT REPORTED Normal 0-22 [facility] Comment on above: Performed By: #### B MPX, BNP, TROPI, TSHX, CDP #### [facility] [address] [place] [address] Director Music: Todd Foster MD XR CHEST PORTABLEon 03-04-20 XR CHEST PORTABLE CHEST X-RAY, 1 VIEW HISTORY: Shortness of breath. COMPARISON: 02/03/2019. FINDINGS: The heart, robert, and mediastinum are unremarkable. The lungs are grossly clear. There are no pleural effusions. There is no pneumothorax. IMPRESSION: No evidence of acute cardiopulmonary disease. Interpreted by: Thomas Christensen MD Signed by: Thomas Christensen MD 03/04/19 Final result Normal [facility] CBC with Diffon 02-03-2019 Abs. Basophil 0.00 k/uL Normal 0.0-0.2 [facility] Comment on above: Performed By: #### C DP, CP #### [facility] [address] [place], [place] [phone] Director Music: Todd Foster MD Abs.Neutrophil (Seg) 1.60 k/uL Low 2.1-6.5 [facility] Comment on above: Performed By: #### C DP, CP #### [facility] [address] [place] [address] Director Music: Todd Foster MD Basophils/100 WBC (Bld) 1 % Normal 0-2 [facility] Comment on above: Performed By: #### C DP, CP #### [facility] [address] [place] [address] Director Music: Todd Foster MD Eosinophils (Bld) [#/Vol] 0.00 10*3/uL Normal 0.0-0.4 [facility] Comment on above: Performed By: #### C DP, CP #### [facility] [address] [place] [address] Director Music: Todd Foster MD Eosinophils/100 WBC (Bld) 2 % Normal 0-5 [facility] Comment on above: Performed By: #### C DP, CP #### [facility] [address] [place] [address] Director Music: Todd Foster MD Erythrocyte distribution width (RBC) [Ratio] 16.6 % High 12.1-15.2 [facility] Comment on above: Performed By: #### C DP, CP #### [facility] [address] [place], [place] [phone] Director Music: Todd Foster MD Hematocrit (Bld) [Volume fraction] 33.5 % Low 41-53 [facility] Comment on above: Performed By: #### C DP, CP #### [facility] [address] [place] [address] Director Music: Todd Foster MD Hemoglobin (Bld) [Mass/Vol] 10.6 g/dL Low 13.5-17.5 [facility] Comment on above: Performed By: #### C DP, CP #### [facility] [address] [place] [phone] Director Music: Todd Foster MD Lymphocytes (Bld) [#/Vol] 0.70 10*3/uL Low 1.0-4.8 [facility] Comment on above: Performed By: #### C DP, CP #### [facility] [address] [place] [address] Director Music: Todd Foster MD Lymphocytes/100 WBC (Bld) 27 % Normal 13-44 [facility] Comment on above: Performed By: #### C DP, CP #### [facility] [address] [place] [address] Director Music: Todd Foster MD MCH (RBC) [Entitic mass] 23.1 pg Low 26-34 [facility] Comment on above: Performed By: #### C DP, CP #### [facility] [address] [place] [address] Director Music: Todd Foster MD MCHC (RBC) [Mass/Vol] 31.7 g/dL Normal 31-37 [facility] Comment on above: Performed By: #### C DP, CP #### [facility] [address] [place] [address] ([phone]) Director Music: Todd Foster MD MCV (RBC) [Entitic vol] 73.0 fL Low 80-100 [facility] Comment on above: Performed By: #### C DP, CP #### [facility] [address] [place] [phone] ([phone]) Director Music: Todd Foster MD Monocytes (Bld) [#/Vol] 0.30 10*3/uL Normal 0.0-1.0 [facility] Comment on above: Performed By: #### C DP, CP #### [facility] [address] [place] [phone] ([phone]) Director Music: Todd Foster MD Monocytes/100 WBC (Bld) 10 % High 5-9 [facility] Comment on above: Performed By: #### C DP, CP #### [facility] [address] [place] [address] ([phone]) Director Music: Todd Foster MD Neutrophil (Seg) 60 % Normal 39-75 [facility] Comment on above: Performed By: #### C DP, CP #### [facility] [address] [place] [address] ([phone]) Director Music: Todd Foster MD Platelets (Bld) [#/Vol] 106 10*3/uL Low 140-450 [facility] Comment on above: Performed By: #### C DP, CP #### [facility] [address] [place] [address] (904) Director Music: Todd Foster MD RBC (Bld) [#/Vol] 4.59 10*6/uL Normal 4.5-5.9 [facility] Comment on above: Performed By: #### C DP, CP #### [facility] [address] [place] [phone] ([phone]) Director Music: Todd Foster MD WBC (Bld) [#/Vol] 2.6 10*3/uL Critically low 3.5-11.0 [facility] Comment on above: Performed By: #### C DP, CP #### [facility] [address] [place] [address] Director Music: Todd Foster MD Abs.Imm.Granulocyte NOT REPORTED Normal 0.00-0.30 [facility] Comment on above: Performed By: #### C DP, CP #### [facility] [address] [place] [address] Director Music: Todd Foster MD Auto Diff Performed NOT REPORTED Normal [facility] Comment on above: Performed By: #### C DP, CP #### [facility] [address] [place] [address] Director Music: Todd Foster MD Immature granulocytes (Bld) [#/Vol] NOT REPORTED Normal 0 [facility] Comment on above: Performed By: #### C DP, CP #### [facility] [address] [place] [phone] Director Music: Todd Foster MD NRBC Automated NOT REPORTED Normal [facility] Comment on above: Performed By: #### C DP, CP #### [facility] [address] [place] [address] Director Music: Todd Foster MD Platelet mean volume (Bld) [Entitic vol] NOT REPORTED Normal 6.0-12.0 [facility] Comment on above: Performed By: #### C DP, CP #### [facility] [address] [place] [address] Director Music: Todd Foster MD Platelets (Bld) [#/Vol] NOT REPORTED Normal [facility] Comment on above: Performed By: #### C DP, CP #### [facility] [address] [place] [address] Director Music: Todd Foster MD RBC morphology finding Nom (Bld) NOT REPORTED Normal [facility] Comment on above: Performed By: #### C DP, CP #### [facility] [address] [place] [address] Director Music: Todd Foster MD WBC Morphology NOT REPORTED Normal [facility] Comment on above: Performed By: #### C DP, CP #### [facility] [address] [place] [address] Director Music: Todd Foster MD Comp Metabolic Profon 2018 (cont.) Normal [facility] Comment on above: Result Comment: Aver age GFR for 50-59 years old: 93 mL/min/1.73sq m Chronic Kidney Disease: <60 mL/min/1.73sq m Kidney failure: <15 mL/min/1.73sq m eGFR calculated using average adult body mass. Additional eGFR calculator available at: http://www.[employer].Urlist/multiple_crcl_2012.htm Performed By: #### C DP, CP #### [facility] [address] [place] [address] Director Music: Todd Foster MD Albumin [Mass/Vol] 4.1 g/dL Normal 3.5-5.2 [facility] Comment on above: Performed By: #### C DP, CP #### [facility] [address] [place] [address] Director Music: Todd Foster MD Alkaline Phos 90 U/L Normal 40-129 [facility] Comment on above: Performed By: #### C DP, CP #### [facility] [address] [place] [address] Director Music: Todd Foster MD ALT [Catalytic activity/Vol] 28 U/L Normal 5-41 [facility] Comment on above: Performed By: #### C DP, CP #### [facility] [address] [place], [place] [phone] Director Music: Todd Foster MD Anion gap [Moles/Vol] 12 mmol/L Normal 9-17 [facility] Comment on above: Performed By: #### C DP, CP #### [facility] [address] [place], [place] [phone] Director Music: Todd Foster MD AST [Catalytic activity/Vol] 30 U/L Normal <40 [facility] Comment on above: Performed By: #### C DP, CP #### [facility] [address] [place], [place] [phone] Director Music: Todd Foster MD Bilirubin Ql (U) 0.85 mg/dL Normal 0.30-1.20 [facility] Comment on above: Performed By: #### C DP, CP #### [facility] [address] [place], [place] [phone] Director Music: Todd Foster MD BUN/CRE Ratio 27 High 9-20 [facility] Comment on above: Performed By: #### C DP, CP #### [facility] [address] [place], [place] 2035[address] Director Music: Todd Foster MD Calcium [Mass/Vol] 9.2 mg/dL Normal 8.6-10.4 [facility] Comment on above: Performed By: #### C DP, CP #### [facility] [address] [place], [place] [phone] Director Music: Todd Foster MD Chloride [Moles/Vol] 99 mmol/L Normal 98-107 [facility] Comment on above: Performed By: #### C DP, CP #### [facility] [address] [place], [place] [phone] Director Music: Todd Foster MD CO2 [Moles/Vol] 26 mmol/L Normal 20-31 [facility] Comment on above: Performed By: #### C DP, CP #### [facility] [address] [place] [address] Director Music: Todd Foster MD Creatinine [Mass/Vol] 0.49 mg/dL Low 0.70-1.20 [facility] Comment on above: Performed By: #### C DP, CP #### [facility] [address] [place] [address] Director Music: Todd Foster MD GFR, Amer >60 Normal >60 [facility] Comment on above: Performed By: #### C DP, CP #### [facility] [address] [place] [address] Director Music: Todd Foster MD GFR,non Amer >60 Normal >60 [facility] Comment on above: Performed By: #### C DP, CP #### [facility] [address] [place] [address] Director Music: Todd Foster MD Glucose [Mass/Vol] 130 mg/dL High 70-99 [facility] Comment on above: Performed By: #### C DP, CP #### [facility] [address] [place] [address] Director Music: Todd Foster MD Potassium [Moles/Vol] 3.9 mmol/L Normal 3.7-5.3 [facility] Comment on above: Performed By: #### C DP, CP #### [facility] [address] [place] [address] Director Music: Todd Foster MD Protein [Mass/Vol] 7.8 g/dL Normal 6.4-8.3 [facility] Comment on above: Performed By: #### C DP, CP #### [facility] [address] [place] [address] Director Music: Todd Foster MD Sodium [Moles/Vol] 137 mmol/L Normal 135-144 [facility] Comment on above: Performed By: #### C DP, CP #### [facility] [address] [place], [place] [phone] Director Music: Todd Foster MD Urea nitrogen [Mass/Vol] 13 mg/dL Normal 6-20 [facility] Comment on above: Performed By: #### C DP, CP #### [facility] [address] [place] [address] Director Music: Todd Foster MD Albumin/Globulin [Mass ratio] NOT REPORTED Normal 1.0-2.5 [facility] Comment on above: Performed By: #### C DP, CP #### [facility] [address] [place] [address] Director Music: Todd Foster MD Staging: NOT REPORTED Normal [facility] Comment on above: Performed By: #### C DP, CP #### [facility] [address] [place] [address] Director Music: Todd Foster MD XR CHEST (2 VW)on [...] Kanika Terry DO 02/03/19 Final result Normal [facility] XR Knee Right 2 Views (Stand [...] acute changes. Invalid Interpretation Code FUJI SYNAPSE [facility] Drug Testi ngon 06-03-2018 [facility] Drug Testing See EMR Normal [facility] Comment on above: Result Comment: Scan daryl report from [facility] ([id number] [employer], [place], [place])can be found in the [facility] EMR ([email or web address]) system. Performed By: #### M CHEMOILLEN ####Unless otherwise noted, all testing performed by [facility], [place] [phone]: [id number] Director: Jack Mendoza M.D. FOOTon 05-15-2018 FOOT Final ReportAccession No: [id number] Performed: May 15 2018 3:20PMExamination: LEFT [...] Physician: JONATHAN BELTRAN M.D.Trans: n/a : cc: [facility] KNEES BILAT STANDING 1 VIEW ONLYon 05-15-2018 KNEES BILAT STANDING 1 VIEW ONLY Final ReportAccession No: [id number] Performed: May 15 2018 3:20PMExamination: KNEES [...] Physician: JONATHAN BELTRAN M.D.Trans: n/a : cc: [facility]2018 [facility] See [facility] Normal [facility] Comment on above: Result Comment: Scan daryl report from [employer] ([address] [address] [facility] [place]can be found in the [facility] ([facility]) system. Performed By: #### M LMILLEN ####Unless otherwise noted, all testing performed by [facility] [employer] [place] [address], [place] [phone]: [id number] Director: Jack Mendoza M.D. [facility] 05-06-2018 [facility] Testing See EMR [facility] Comment on above: Result Comment: Scan daryl report from [employer] ([address] [address] [employer], [place], [place])can be found in the [facility] EMR ([facility] [employer]) system. Performed By: #### M DIANELYS ####Unless otherwise noted, all testing performed by [place] [address], [place] [phone]: [id number] Director: Jack Mendoza M.D. CT LOWER EXT W/O CONTRASTon 04-20-2018 CT LOWER EXT W/O CONTRAST Final ReportAccession No: [id number] Performed: Apr 20 2018 4:26PMExamination: RIGHT [...] SOFÍA MAIN D.O.Trans: sfalk : cc: Normal [facility] [place] [facility] Drug Testi ngon 04-08-2018 [facility] Drug Testing See EMR Normal [facility] Comment on above: Result Comment: Scan daryl report from [facility] ([address] [employer], [place], [place])can be found in the [facility] EMR ([employer]) system. Performed By: #### M LMILLEN ####Unless otherwise noted, all testing performed by [facility], [place] [phone]: [id number] Director: Jack Mendoza M.D. ANKLE 2 VIEWSon 03-31-2018 ANKLE 2 VIEWS Final ReportAccession No: [id number] Performed: Mar 31 2018 10:50AMExamination: RIGHT ANKLE 2 VIEWSEXAM TYPE: ANKLE 2 VIEWS RIGHTEXAM DATE AND TIME: 03/31/2018 10:50 AM EDTINDICATION: 52-year-old male with chronic pain.COMPARISON: None.TECHNIQUE: 2 views of the right ankle.FINDINGS: No acute fracture. Joints and ankle mortise are anatomicallyaligned.Soft tissues appear unremarkable.IMPRESSION:No acute fracture or traumatic malalignment.Interpreting Physician: KHADAR BETH D.O.Trans: dcarr : cc: Normal [facility] FOOTon 03-31-2018 FOOT Final ReportAccession No: [id number] Performed: Mar 31 2018 10:50AMExamination: RIGHT [...] KHADAR BETH D.O.Trans: dcarr : cc: Normal [facility] [place] [facility] Drug Testi ngon 03-11-2018 [facility] Drug Testing See EMR Normal [facility] Comment on above: Result Comment: Scan daryl report from [facility] ([address] [address] [employer], [place], [place])can be found in the [facility] EMR ([facility]) system. Performed By: #### M LMILLEN ####Unless otherwise noted, all testing performed by [address] [phone]: [id number] Director: Jack Mendoza M.D. CCP Antibodieson 03-08-2018 CCP Antibodies 135.8 Unit High 0.0-20.0 [facility] Comment on above: Result Comment: Refe rence Ranges:<20Units [id number] Weakly Xxbedepq77-72Zusmm Moderative Positive>=60Units Strong PositiveTest Performed by [facility] [employer] [address] [place] [address] Performed By: #### C RPQT, URIC, SEDR, CCPAB ####Unless otherwise noted, all testing performed by [address] [phone]: [id number] Director: Jack Mendoza M.D. CRP, C-Reactive Proteinon Protein mass conc 5.0 mg/L Normal 0.0-10.0 [facility] Comment on above: Performed By: #### C RPQT, URIC, SEDR, CCPAB ####Unless otherwise noted, all testing performed by [address] [phone]: [id number] Director: Jack Mendoza M.D. Rheumatoid Factoron 03-08-20 18 Rheumatoid Factor Positive Abnormal Negative [facility] Comment on above: Performed By: #### R F ####Unless otherwise noted, all testing performed by [address] [phone]: [id number] Director: Jack Mendoza M.D. Rheumatoid Factor Titer 1:32 Normal [facility] Comment on above: Performed By: #### R F ####Unless otherwise noted, all testing performed by [address] [phone]: [id number] Director: Jack Mendoza M.D. Sed Rateon 03-08-2018 Sed Rate 38 MM/hr. High 0-15 [facility] Comment on above: Performed By: #### C RPQT, URIC, SEDR, CCPAB ####Unless otherwise noted, all testing performed by [address] [phone]: [id number] Director: Jack Mendoza M.D. Uric Acidon 03-08-2018 Urate mass conc 6.2 mg/dL Normal 3.4-8.5 [facility] Comment on above: Performed By: #### C RPQT, URIC, SEDR, CCPAB ####Unless otherwise noted, all testing performed by [facility], [place] [phone]: [id number] Director: Jack Mendoza M.D. ANKLEon 03-07-2018 ANKLE Final ReportAccession No: [id number] Performed: Mar 07 2018 3:34PMExamination: RIGHT [...] KATE DUEÑAS M.D.Trans: lwolfe : cc: Normal [facility] FOOTon 03-07-2018 FOOT Final ReportAccession No: [id number] Performed: Mar 07 2018 3:34PMExamination: RIGHT [...] or stress fracture.Interpreting Physician: KJ VERA M.D.Trans: [id number] : cc: Normal [facility] HIPon 03-07-2018 HIP Final ReportAccession No: [id number] Performed: Mar 07 2018 3:34PMExamination: RIGHT [...] KATE DUEÑAS M.D.Trans: n/a : cc: Normal [facility] KNEE W/PATELLAon 03-07-2018 KNEE W/PATELLA Final ReportAccession No: [id number] Performed: Mar 07 2018 3:34PMExamination: RIGHT [...] Mild tomoderatetricompartmental osteoarthritis.Interpreting Physician: JOVITA LIRA M.D.Trans: [id number] : cc: Normal [facility] [place] [facility] Drug Testi [facility] 02-11-2018 [facility] Drug Testing See EMR Normal [facility] Comment on above: Result Comment: Scan daryl report from [facility] ([address] [address] [employer], [place])can be found in the [facility] E[facility] ([facility]) system. Performed By: #### M LMILLEN ####Unless otherwise noted, all testing performed by [address], [place] [phone]: [id number] Director: Jack Mendoza M.D. [facility] 01-[facility]-2018 [facility] Drug Testing See EMR Normal [facility] Comment on above: Result Comment: Scan daryl report from [facility] ([address] [address] [employer], [place])can be found in the [facility] E[facility] ([facility] [employer]) system. Performed By: #### M LMILLEN ####Unless otherwise noted, all testing performed by [address], [place] [phone]: [id number] Director: Jack Mendoza M.D. [facility] 12-[facility]-2017 [facility] Drug Testing See EMR Normal [facility] Comment on above: Result Comment: Scan daryl report from [facility] ([address] [address] [email or web address] [place])can be found in the [facility] ([facility]) system. Performed By: #### M LMILLEN ####Unless otherwise noted, all testing performed by [address], [place] [phone]: [id number] Director: Jack Mendoza M.D. CT SPINE CERVICAL W/O VAZQUEZMia Arash 08-06-2017 CT SPINE CERVICAL W/O CONTRAST Final ReportAccession No: [id number] Performed: Aug 06 2017 6:52PMExamination: CT [...] Report Signed: 08/07/2017 12:48:25 AMInterpreting Physician: ALEX,Trans: [id number] : cc: Normal [facility] SHOULDER 2 OR MORE VIEWSon 1 10-07-2016 SHOULDER 2 OR MORE VIEWS Final ReportAccession No: [id number] Performed: Aug 06 2017 6:36PMExamination: LEFT [...] Physician: PETROS GOLDBERG D.O.Trans: : cc: Normal [facility] CBC and Differentialon 05-05 Basophils 0.0 K/mcL Invalid Interpretation Code 0 - 0.2 [facility] Basophils 0.3 % Invalid Interpretation Code [facility] Eosinophils 0.1 K/mcL Invalid Interpretation Code 0 - 0.5 [facility] Erythrocytes (RBC) 5.02 M/mcL Invalid Interpretation Code 4.0 - 5.5 [facility] Hematocrit (HCT) 36.9 % Low 37.9 - 49.2 % [facility] Hemoglobin (HGB) 11.6 g/dL Low 12.9 - 16.9 g/dL [facility] Interpretation and review of laboratory results Abnormal Invalid Interpretation Code [facility] Lymphocytes 1.3 K/mcL Invalid Interpretation Code 0.9 - 3.6 [facility] MCH 23.1 pg Low 27.7 - 34.6 pg [facility] MCHC 31.4 g/dL Low 32.9 - 35.5 g/dL [facility] MCV 73.5 fL Low 82.8 - 99.3 [facility] Monocytes 0.5 K/mcL Invalid Interpretation Code 0.2 - 0.6 [facility] Neutrophils 3.1 K/mcL Invalid Interpretation Code 1.4 - 6.8 [facility] Platelet mean volume (PMV) 8.1 fL Invalid Interpretation Code 6.6 - 10.8 [facility] Platelets 122 K/mcL Low 139 - 354 [facility] RDW-CA 15.6 % High 10 - 14.3 % [facility] Segmented Neut 62.5 % Invalid Interpretation Code [facility] T8 suppressor/100 cells 1.1 10*3/uL Invalid Interpretation Code [facility] T8 suppressor/100 cells 26.9 10*3/uL Invalid Interpretation Code [facility] T8 suppressor/100 cells 9.2 10*3/uL Invalid Interpretation Code [facility] WBC (Leukocytes) 5.0 K/mcL Invalid Interpretation Code 3.6 - 10.4 [facility] CRP, C-Reactive Proteinon CRP - Inflammation < 2.9 Invalid Interpretation Code 0 - 10 mg/L [facility] Comprehensive Metabolic Pane ras 05-05-2017 Alanine aminotransferase (ALT) 44 U/L Invalid Interpretation Code 14 - 65 U/L [facility] Albumin 3.4 g/dL Invalid Interpretation Code 3.2 - 5.2 g/dL [facility] Alkaline phosphatase (ALP) 87 U/L Invalid Interpretation Code 40 - 150 U/L [facility] Aspartate aminotransferase (AST) 38 U/L Invalid Interpretation Code 0 - 45 U/L [facility] Calcium 8.5 mg/dL Invalid Interpretation Code 8.4 - 10.2 mg/dL [facility] Chloride 103 mmol/L Invalid Interpretation Code 98 - 108 mmol/L [facility] CO2 25 mmol/L Invalid Interpretation Code 21 - 32 mmol/L [facility] Creatinine 0.68 mg/dL Invalid Interpretation Code 0.5 - 1.3 mg/dL [facility] eGFR (black) mL/min/{1.73_m2} Invalid Interpretation Code ml/min/1.73s q.m [facility] eGFR (non-black) mL/min/{1.73_m2} Invalid Interpretation Code ml/min/1.73s q.m [facility] Glucose 102 mg/dL High 70 - 99 mg/dL [facility] Potassium 3.9 mmol/L Invalid Interpretation Code 3.5 - 5.1 mmol/L [facility] Protein 8.5 g/dL High 6 - 8 g/dL [facility] Sodium 138 mmol/L Invalid Interpretation Code 135 - 145 mmol/L [facility] Urea nitrogen 18 mg/dL Invalid Interpretation Code 8 - 25 mg/dL [facility] Urine, bilirubin presence 1.2 mg/dL Invalid Interpretation Code 0.3 - 1.2 mg/dL [facility] Hemoglobin A1con 05-05-2017 HbA1c 4.9 % Invalid Interpretation Code 4.1 - 6.5 % [facility] Sedimentation Rateon 017 Sed Rate 21 MM/hr. High 0 - 15 [facility] TSHon 05-05-2017 Thyroid stimulating hormone (TSH) 3.07 uIU/mL Invalid Interpretation Code 0.320 - 5.000 [facility] Uric Acidon 05-05-2017 Urate 5.1 mg/dL Invalid Interpretation Code 3.4 - 8.5 mg/dL [facility] Vital Signs Date Time Vital Sign Value Performing Clinician Facility 05-30-2025 15:08-0400 Body height 182.9 cm Sofía Dukes MD Work Phone: [facility] 05-30-2025 15:08-0400 Body mass index (BMI) [Ratio] 37.43 kg/m2 Sofía Dukes MD Work Phone: [facility] 05-30-2025 15:08-0400 Body weight 125.19 kg Sofía Dukes MD Work Phone: [facility] 05-16-2025 13:36-0400 Respiratory rate 16 /min Carolyn Jalloh MD Work Phone: [facility] 05-16-2025 12:21-0400 Body temperature 97.7 [degF] Carolyn Jalloh MD Work Phone: [facility] 05-16-2025 12:21-0400 Diastolic blood pressure 87 mm[Hg] Craolyn Jalloh MD Work Phone: [facility] 05-16-2025 12:21-0400 Heart rate 76 /min Carolyn Jalloh MD Work Phone: [facility] 05-16-2025 12:21-0400 SaO2% (BldA) [Mass fraction] 98 % Carolyn Jalloh MD Work Phone: [facility] 05-16-2025 12:21-0400 Systolic blood pressure 159 mm[Hg] Carolyn Jalloh MD Work Phone: [facility] 05-12-2025 14:07-0400 Body height 182.9 cm Carolyn Jalloh MD Work Phone: [facility] 05-12-2025 14:07-0400 Body mass index (BMI) [Ratio] 37.52 kg/m2 Carolyn Jalloh MD Work Phone: [facility] 05-12-2025 14:07-0400 Body weight 125.5 kg Carolyn Jalloh MD Work Phone: [facility] 05-09-2025 14:07-0400 Body height 182.9 cm Daniel Hammer MD Work Phone: [facility] 05-09-2025 14:07-0400 Body mass index (BMI) [Ratio] 35.94 kg/m2 Daniel Hammer MD Work Phone: [facility] 05-09-2025 14:07-0400 Body weight 120.2 kg Daniel Hammer MD Work Phone: [facility] 04-05-2025 09:33-0400 Respiratory rate 18 /min Kanchan Jacobs MD Work Phone: [facility] 04-05-2025 07:52-0400 Body temperature 98.01 [degF] Kanchan Jacobs MD Work Phone: [facility] 04-05-2025 07:52-0400 Diastolic blood pressure 63 mm[Hg] Kanchan Jacobs MD Work Phone: [facility] 04-05-2025 07:52-0400 Heart rate 78 /min Kanchan Jacobs MD Work Phone: [facility] 04-05-2025 07:52-0400 SaO2% (BldA) [Mass fraction] 99 % Kanchan Jacobs MD Work Phone: [facility] 04-05-2025 07:52-0400 Systolic blood pressure 100 mm[Hg] Kanchan Jacobs MD Work Phone: [facility] 04-04-2025 23:47-0400 SaO2% (BldA) [Mass fraction] 98.4 % Kanchan Jacobs MD Work Phone: [facility] 04-02-2025 12:15-0400 Body height 182.9 cm Kanchan Jacobs MD Work Phone: [facility] 04-02-2025 12:15-0400 Body mass index (BMI) [Ratio] 40.69 kg/m2 Kanchan Jacobs MD Work Phone: [facility] 04-02-2025 12:15-0400 Body weight 136.08 kg Kanchan Jacobs MD Work Phone: [facility] 01-04-2025 14:00-0400 Body temperature 97.9 [degF] Cecilia Greeley DPM Work Phone: [facility] 01-04-2025 14:00-0400 Diastolic blood pressure 78 mm[Hg] Cecilia Greeley DPM Work Phone: [facility] 01-04-2025 14:00-0400 Heart rate 87 /min Cecilia Greeley DPM Work Phone: [facility] 01-04-2025 14:00-0400 Respiratory rate 16 /min Cecilia Greeley DPM Work Phone: [facility] 01-04-2025 14:00-0400 SaO2% (BldA) [Mass fraction] 90 % Cecilia Janet DPM Work Phone: [facility] 01-04-2025 14:00-0400 Systolic blood pressure 122 mm[Hg] Cecilia Janet DPM Work Phone: [facility] 01-02-2025 14:26-0400 Diastolic blood pressure 72 mm[Hg] WFrancesca Berryske III, DO Work Phone: [facility] 01-02-2025 14:26-0400 Heart rate 87 /min WFrancesca Berryske III, DO Work Phone: [facility] 01-02-2025 14:26-0400 Systolic blood pressure 109 mm[Hg] W. Craske III, DO Work Phone: [facility] 01-02-2025 14:07-0400 Body height 182.9 cm WFrancesca Berryske III, DO Work Phone: [facility] 01-02-2025 14:07-0400 Body mass index (BMI) [Ratio] 39.47 kg/m2 W. Craske III, DO Work Phone: [facility] 01-02-2025 14:07-0400 Body weight 132 kg WFrancesca Chavese III, DO Work Phone: [facility] 01-02-2025 14:07-0400 SaO2% (BldA) [Mass fraction] 92 % Luis Daniel Cao III, DO Work Phone: [facility] 12-21-2024 13:17-0400 Body temperature 97 [degF] Cecilia Greeley DPM Work Phone: [facility] 12-21-2024 13:17-0400 Diastolic blood pressure 88 mm[Hg] Cecilia Greeley DPM Work Phone: [facility] 12-21-2024 13:17-0400 Heart rate 90 /min Cecilia Greeley DPM Work Phone: [facility] 12-21-2024 13:17-0400 Respiratory rate 16 /min Cecilia Greeley DPM Work Phone: [facility] 12-21-2024 13:17-0400 SaO2% (BldA) [Mass fraction] 95 % Cecilia Janet DPM Work Phone: [facility] 12-21-2024 13:17-0400 Systolic blood pressure 137 mm[Hg] Cecilia Greeley DPM Work Phone: [facility] 11-23-2024 14:00-0400 Body temperature 97.39 [degF] Cecilia Janet DPM Work Phone: [facility] 11-23-2024 14:00-0400 Diastolic blood pressure 86 mm[Hg] Cecilia Janet DPM Work Phone: [facility] 11-23-2024 14:00-0400 Heart rate 91 /min Cecilia Greeley DPM Work Phone: [facility] 11-23-2024 14:00-0400 Respiratory rate 16 /min Cecilia Janet DPM Work Phone: [facility] 11-23-2024 14:00-0400 SaO2% (BldA) [Mass fraction] 91 % Cecilia Janet DPM Work Phone: [facility] 11-23-2024 14:00-0400 Systolic blood pressure 145 mm[Hg] Cecilia Greeley DPM Work Phone: [facility] 10-24-2024 09:21-0500 Respiratory rate 16 /min Cameron Vargas MD Work Phone: [facility] 10-24-2024 08:09-0500 Body temperature 97.9 [degF] Cameron Vargas MD Work Phone: [facility] 10-24-2024 08:09-0500 Diastolic blood pressure 76 mm[Hg] Cameron Vargas MD Work Phone: [facility] 10-24-2024 08:09-0500 Heart rate 87 /min Cameron Vargas MD Work Phone: [facility] 10-24-2024 08:09-0500 SaO2% (BldA) [Mass fraction] 87 % Cameron Vargas MD Work Phone: [facility] 10-24-2024 08:09-0500 Systolic blood pressure 122 mm[Hg] Cameron Vargas MD Work Phone: [facility] 10-23-2024 05:00-0500 Body mass index (BMI) [Ratio] 42.1 kg/m2 Cameron Vargas MD Work Phone: [facility] 10-23-2024 05:00-0500 Body weight 140.8 kg Cameron Vargas MD Work Phone: [facility] 10-20-2024 10:21-0500 Body height 182.9 cm Cameron Vargas MD Work Phone: [facility] 07-05-2024 10:44-0500 Respiratory rate 18 /min Cameron Vargas MD Work Phone: [facility] 07-05-2024 09:42-0500 Body temperature 98.4 [degF] Cameron Vargas MD Work Phone: [facility] 07-05-2024 09:42-0500 Diastolic blood pressure 79 mm[Hg] Cameron Vargas MD Work Phone: [facility] 07-05-2024 09:42-0500 Heart rate 80 /min Cameron Vargas MD Work Phone: [facility] 07-05-2024 09:42-0500 SaO2% (BldA) [Mass fraction] 95 % Cameron Vargas MD Work Phone: [facility] 07-05-2024 09:42-0500 Systolic blood pressure 123 mm[Hg] Cameron Vargas MD Work Phone: [facility] 07-02-2024 14:29-0500 Body height 182.9 cm Cameron Vargas MD Work Phone: [facility] 07-02-2024 14:29-0500 Body mass index (BMI) [Ratio] 35.26 kg/m2 Cameron Vargas MD Work Phone: [facility] 07-02-2024 14:29-0500 Body weight 117.94 kg Cameron Vargas MD Work Phone: [facility] 06-15-2024 02:52-0400 Body temperature 98 [degF] Dr. Reg Rogel [facility] 06-15-2024 02:52-0400 Diastolic blood pressure 89 mm[Hg] Dr. Reg Rogel [facility] 06-15-2024 02:52-0400 Heart rate 94 /min Dr. Reg Rogel [facility] 06-15-2024 02:52-0400 Oxygen saturation in Blood 95 % Dr. Reg Rogel [facility] 06-15-2024 02:52-0400 Respiratory rate 16 /[facility] 06-15-2024 02:52-0400 Systolic blood pressure 132 mm[Hg] Dr. Reg Hartman [facility] 06-07-2024 21:02-0400 Body temperature 98.2 [degF] Dr. Reg Lou [facility] 06-07-2024 21:02-0400 Diastolic blood pressure 86 mm[Hg] Dr. Reg Hartman [facility] 06-07-2024 21:02-0400 Heart rate 90 /min Dr. Reg Rogel [facility] 06-07-2024 21:02-0400 Oxygen saturation in Blood 96 % Dr. Reg Hartman [facility] 06-07-2024 21:02-0400 Respiratory rate 20 /min [facility] 06-07-2024 21:02-0400 Systolic blood pressure 129 mm[Hg] Dr. Reg Hartman [facility] 06-01-2024 03:48-0400 Body temperature 98.2 [degF] [facility] 06-01-2024 03:48-0400 Diastolic blood pressure 85 mm[Hg] Dr. Reg Hartman [facility] 06-01-2024 03:48-0400 Heart rate 92 /min Dr. Reg Rogel [facility] 06-01-2024 03:48-0400 Oxygen saturation in Blood 95 % Dr. Reg Hartman [facility] 06-01-2024 03:48-0400 Respiratory rate 18 /min [facility] 06-01-2024 03:48-0400 Systolic blood pressure 132 mm[facility]Hg[facility] 20:54-0400 Body temperature 97.8 [degF] Dr. Reg Lou [facility] 05-24-2024 20:54-0400 Diastolic blood pressure 82 mm[Hg] Dr. Reg Hartman [facility] 05-24-2024 20:54-0400 Heart rate 86 /[facility] 05-24-2024 20:54-0400 Oxygen saturation in Blood 98 % Dr. Reg Hartman [facility] 05-24-2024 20:54-0400 Respiratory rate 18 /min [facility] 05-24-2024 20:54-0400 Systolic blood pressure 127 mm[Hg] Dr. Reg Hartman [facility] 05-22-2024 11:53-0400 Body weight 120.[address] [facility] 05-18-2024 05:17-0400 Body temperature 98 [degF] [facility] 05-18-2024 05:17-0400 Diastolic blood pressure 89 mm[Hg] Dr. Reg Rogel [facility] 05-18-2024 05:17-0400 Heart rate 83 /min Dr. Reg Rogel [facility] 05-18-2024 05:17-0400 Oxygen saturation in Blood 98 % Dr. Reg Hartman [facility] 05-18-2024 05:17-0400 Respiratory rate 18 /[facility] 05-18-2024 05:17-0400 Systolic blood pressure 124 mm[Hg] Dr. Reg Hartman [facility] 05-10-2024 19:57-0400 Body temperature 98.2 [degF] [facility] 05-10-2024 19:57-0400 Diastolic blood pressure 82 mm[Hg] Dr. Reg Hartman [facility] 05-10-2024 19:57-0400 Heart rate 83 /min Dr. Reg Hartman [facility] 05-10-2024 19:57-0400 Oxygen saturation in Blood 97 % Dr. Reg Hartman [facility] 05-10-2024 19:57-0400 Respiratory rate 18 /min [facility] 05-10-2024 19:57-0400 Systolic blood pressure 130 mm[Hg] Dr. Reg Hartman [facility] 04-26-2024 20:08-0400 Body temperature 98.1 [degF] [facility] 04-26-2024 20:08-0400 Diastolic blood pressure 84 mm[Hg] Dr. Reg Hartman [facility] 04-26-2024 20:08-0400 Heart rate 85 /min Dr. Reg Rogel [facility] 04-26-2024 20:08-0400 Oxygen saturation in Blood 98 % Dr. Reg Hartman [facility] 04-26-2024 20:08-0400 Systolic blood pressure 127 mm[Hg] Dr. Reg Hartman [facility] 04-22-2024 15:17-0400 Body weight 125.[address] Reg Rogel [facility] 04-20-2024 05:30-0400 Body temperature 97.7 [degF] [facility] 04-20-2024 05:30-0400 Diastolic blood pressure 88 mm[Hg] Dr. Reg Hartman [facility] 04-20-2024 05:30-0400 Heart rate 80 /min Dr. Reg Hartman [facility] 04-20-2024 05:30-0400 Oxygen saturation in Blood 97 % Dr. Reg Hartman [facility] 04-20-2024 05:30-0400 Respiratory rate 18 /min [facility] 04-20-2024 05:30-0400 Systolic blood pressure 132 mm[Hg] Dr. Reg Hartman [facility] 04-12-2024 20:13-0400 Body temperature 98 [degF] [facility] 04-12-2024 20:13-0400 Diastolic blood pressure 81 mm[Hg] Dr. Reg Hartman [facility] 04-12-2024 20:13-0400 Heart rate 88 /min Dr. Reg Rogel [facility] 04-12-2024 20:13-0400 Systolic blood pressure 128 mm[Hg] Dr. Reg Hartman [facility] 04-10-2024 17:23-0400 PAIN LEVEL 6 {score} Dr. Reg Rogel [facility] 03-23-2024 19:22-0400 Body weight 125.[address] Reg Rogel [facility] 03-22-2024 20:23-0400 Body temperature 97.7 [degF] Dr. Reg Rogel [facility] 03-22-2024 20:23-0400 Diastolic blood pressure 82 mm[Hg] Dr. Reg Hartman [facility] 03-22-2024 20:23-0400 Heart rate 85 /[facility] 03-22-2024 20:23-0400 Oxygen saturation in Blood 97 % Dr. Reg Hartman [facility] 03-22-2024 20:23-0400 Respiratory rate 18 /min Dr. Reg Rogel [facility] 03-22-2024 20:23-0400 Systolic blood pressure 132 mm[Hg] Dr. Reg Hartman [facility] 01-17-2024 15:27-0400 Diastolic blood pressure 77 mm[Hg] ALEXEY Radford DPM Work Phone: [facility] 01-17-2024 15:27-0400 Systolic blood pressure 124 mm[Hg] ALEXEY Radford DPM Work Phone: [facility] 01-17-2024 15:03-0400 Body temperature 98.4 [degF] ALEXEY SANTANAM Work Phone: [facility] 01-17-2024 15:03-0400 Heart rate 78 /min CJ Hassmann DPM Work Phone: [facility] 01-17-2024 15:03-0400 SaO2% (BldA) [Mass fraction] 93 % CJ Hassmann DPM Work Phone: [facility] 09-09-2023 13:04-0500 Body temperature 98.01 [degF] Cecilia Greeley DPM Work Phone: [facility] 09-09-2023 13:04-0500 Diastolic blood pressure 80 mm[Hg] Cecilia Janet DPM Work Phone: [facility] 09-09-2023 13:04-0500 Heart rate 88 /min Cecilia Janet DPM Work Phone: [facility] 09-09-2023 13:04-0500 Respiratory rate 16 /min Cecilia Greeley DPM Work Phone: [facility] 09-09-2023 13:04-0500 SaO2% (BldA) [Mass fraction] 91 % Cecilia Greeley DPM Work Phone: [facility] 09-09-2023 13:04-0500 Systolic blood pressure 168 mm[Hg] Cecilia Greeley DPM Work Phone: [facility] 09-02-2023 14:33-0500 Body temperature 98.6 [degF] Cecilia Greeley DPM Work Phone: [facility] 09-02-2023 14:33-0500 Diastolic blood pressure 83 mm[Hg] Cecilia Janet DPM Work Phone: [facility] 09-02-2023 14:33-0500 Heart rate 89 /min Cecilia Janet DPM Work Phone: [facility] 09-02-2023 14:33-0500 Respiratory rate 16 /min Cecilia Greeley DPM Work Phone: [facility] 09-02-2023 14:33-0500 Systolic blood pressure 145 mm[Hg] Cecilia Janet DPM Work Phone: [facility] 08-26-2023 13:16-0500 Body temperature 98.29 [degF] Cecilia Greeley DPM Work Phone: [facility] 08-26-2023 13:16-0500 Diastolic blood pressure 91 mm[Hg] Cecilia Janet DPM Work Phone: [facility] 08-26-2023 13:16-0500 Heart rate 85 /min Cecilia Janet DPM Work Phone: [facility] 08-26-2023 13:16-0500 Respiratory rate 16 /min Cecilia Janet DPM Work Phone: [facility] 08-26-2023 13:16-0500 SaO2% (BldA) [Mass fraction] 92 % Cecilia Greeley DPM Work Phone: [facility] 08-26-2023 13:16-0500 Systolic blood pressure 173 mm[Hg] Cecilia Janet DPM Work Phone: [facility] 08-19-2023 10:54-0500 Body temperature 97.3 [degF] Cecilia Janet DPM Work Phone: [facility] 08-19-2023 10:54-0500 Diastolic blood pressure 82 mm[Hg] Cecilia Greeley DPM Work Phone: [facility] 08-19-2023 10:54-0500 Heart rate 91 /min Cecilia Janet DPM Work Phone: [facility] 08-19-2023 10:54-0500 Respiratory rate 16 /min Cecilia Greeley DPM Work Phone: [facility] 08-19-2023 10:54-0500 SaO2% (BldA) [Mass fraction] 90 % Cecilia Janet DPM Work Phone: [facility] 08-19-2023 10:54-0500 Systolic blood pressure 155 mm[Hg] Cecilia Greeley DPM Work Phone: [facility] 08-11-2023 15:19-0500 Respiratory rate 16 /min Christian Porter MD Work Phone: [facility] 08-11-2023 09:35-0500 Body temperature 98.2 [degF] Christian Porter MD Work Phone: [facility] 08-11-2023 09:35-0500 Diastolic blood pressure 68 mm[Hg] Christian Porter MD Work Phone: [facility] 08-11-2023 09:35-0500 Heart rate 67 /min Christian Porter MD Work Phone: [facility] 08-11-2023 09:35-0500 SaO2% (BldA) [Mass fraction] 97 % Christian Porter MD Work Phone: [facility] 08-11-2023 09:35-0500 Systolic blood pressure 129 mm[Hg] Christian Porter MD Work Phone: [facility] 07-29-2023 14:11-0500 Body height 182.9 cm Christian Porter MD Work Phone: [facility] 07-29-2023 14:11-0500 Body mass index (BMI) [Ratio] 32.55 kg/m2 Christian Porter MD Work Phone: [facility] 07-29-2023 14:11-0500 Body weight 108.86 kg Christian Porter MD Work Phone: [facility] 07-29-2023 13:29-0500 Body temperature 98.71 [degF] Cecilia Greeley DPM Work Phone: [facility] 07-29-2023 13:29-0500 Diastolic blood pressure 78 mm[Hg] Cecilia Greeley DPM Work Phone: [facility] 07-29-2023 13:29-0500 Heart rate 89 /min Cecilia Greeley DPM Work Phone: [facility] 07-29-2023 13:29-0500 Respiratory rate 18 /min Cecilia Greeley DPM Work Phone: [facility] 07-29-2023 13:29-0500 SaO2% (BldA) [Mass fraction] 94 % Cecilia Janet DPM Work Phone: [facility] 07-29-2023 13:29-0500 Systolic blood pressure 138 mm[Hg] Cecilia Greeley DPM Work Phone: [facility] 07-15-2023 07:38-0500 Body temperature 98.71 [degF] Cecilia Janet DPM Work Phone: [facility] 07-15-2023 07:38-0500 Diastolic blood pressure 91 mm[Hg] Cecilia Greeley DPM Work Phone: [facility] 07-15-2023 07:38-0500 Heart rate 93 /min Cecilia Greeley DPM Work Phone: [facility] 07-15-2023 07:38-0500 Respiratory rate 18 /min Cecilia Janet DPM Work Phone: [facility] 07-15-2023 07:38-0500 SaO2% (BldA) [Mass fraction] 95 % Cecilia Greeley DPM Work Phone: [facility] 07-15-2023 07:38-0500 Systolic blood pressure 162 mm[Hg] Cecilia Janet DPM Work Phone: [facility] 07-08-2023 13:31-0500 Body temperature 98.6 [degF] Ceiclia Greeley DPM Work Phone: [facility] 07-08-2023 13:31-0500 Diastolic blood pressure 90 mm[Hg] Cecilia Greeley DPM Work Phone: [facility] 07-08-2023 13:31-0500 Heart rate 78 /min Cecilia Janet DPM Work Phone: [facility] 07-08-2023 13:31-0500 Respiratory rate 16 /min Cecilia Janet DPM Work Phone: [facility] 07-08-2023 13:31-0500 SaO2% (BldA) [Mass fraction] 94 % Cecilia Janet DPM Work Phone: [facility] 07-08-2023 13:31-0500 Systolic blood pressure 169 mm[Hg] Cecilia Janet DPM Work Phone: [facility] 07-01-2023 13:35-0500 Body height 182.9 cm Cecilia Greeley DPM Work Phone: [facility] 07-01-2023 13:35-0500 Body mass index (BMI) [Ratio] 32.96 kg/m2 Cecilia Janet DPM Work Phone: [facility] 07-01-2023 13:35-0500 Body weight 110.22 kg Cecilia Janet DPM Work Phone: [facility] 07-01-2023 13:27-0500 Body temperature 97.5 [degF] Cecilia Greeley DPM Work Phone: [facility] 07-01-2023 13:27-0500 Diastolic blood pressure 77 mm[Hg] Cecilia Greeley DPM Work Phone: [facility] 07-01-2023 13:27-0500 Heart rate 73 /min Cecilia Greeley DPM Work Phone: [facility] 07-01-2023 13:27-0500 Respiratory rate 18 /min Cecilia Janet DPM Work Phone: [facility] 07-01-2023 13:27-0500 SaO2% (BldA) [Mass fraction] 95 % Cecilia Greeley DPM Work Phone: [facility] 07-01-2023 13:27-0500 Systolic blood pressure 149 mm[Hg] Cecilia Janet DPM Work Phone: [facility] 06-17-2023 09:06-0400 Body temperature 98.49 [degF] Quyen Blairka [employer] Work Phone: [facility] 06-17-2023 09:06-0400 Diastolic blood pressure 75 mm[Hg] Quyen Domka [employer] Work Phone: [facility] 06-17-2023 09:06-0400 Heart rate 80 /min Quyen Domka [employer] Work Phone: [facility] 06-17-2023 09:06-0400 Respiratory rate 16 /min Quyen Domka [employer] Work Phone: [facility] 06-17-2023 09:06-0400 SaO2% (BldA) [Mass fraction] 97 % Quyen Blairka [employer] Work Phone: [facility] 06-17-2023 09:06-0400 Systolic blood pressure 138 mm[Hg] Quyen Domka [employer] Work Phone: [facility] 06-12-2023 00:27-0400 Diastolic blood pressure 69 mm[Hg] Nathan Collins MD Work Phone: [facility] 06-12-2023 00:27-0400 Heart rate 77 /min Nathan Collins MD Work Phone: [facility] 06-12-2023 00:27-0400 SaO2% (BldA) [Mass fraction] 95 % Nathan Collins MD Work Phone: [facility] 06-12-2023 00:27-0400 Systolic blood pressure 110 mm[Hg] Nathan Collins MD Work Phone: [facility] 05-24-2023 23:58-0400 Body mass index (BMI) [Ratio] 31.22 kg/m2 Nathan Collins MD Work Phone: [facility] 05-24-2023 23:58-0400 Body temperature 98.01 [degF] Nathan Collins MD Work Phone: [facility] 05-24-2023 23:58-0400 Body weight 104.42 kg Nathan Collins MD Work Phone: [facility] 05-24-2023 23:58-0400 Diastolic blood pressure 60 mm[Hg] Nathan Collins MD Work Phone: [facility] 05-24-2023 23:58-0400 Heart rate 72 /min Nathan Collins MD Work Phone: [facility] 05-24-2023 23:58-0400 Respiratory rate 16 /min Nathan Collins MD Work Phone: [facility] 05-24-2023 23:58-0400 SaO2% (BldA) [Mass fraction] 97 % Nathan Collins MD Work Phone: [facility] 05-24-2023 23:58-0400 Systolic blood pressure 120 mm[Hg] Nathan Collins MD Work Phone: [facility] 04-26-2023 11:14-0400 Body temperature 97.7 [degF] Av Sarath Gal Wound Nurse [facility] 04-26-2023 11:14-0400 Diastolic blood pressure 85 mm[Hg] Av Sarath Gal Wound Nurse [facility] 04-26-2023 11:14-0400 Heart rate 74 /min Avg Sarath Gal Wound Nurse [facility] 04-26-2023 11:14-0400 Respiratory rate 18 /min Av Sarath Gal Wound Nurse [facility] 04-26-2023 11:14-0400 Systolic blood pressure 143 mm[Hg] Avg Sarath Gal Wound Nurse [facility] 04-18-2023 12:17-0400 Body height 183.1 cm Nathan Hayden MD Work Phone: [facility] 04-18-2023 12:17-0400 Body mass index (BMI) [Ratio] 31.11 kg/m2 Nathan Hayden MD Work Phone: [facility] 04-18-2023 12:17-0400 Body temperature 97.2 [degF] Nathan Hayden MD Work Phone: [facility] 04-18-2023 12:17-0400 Body weight 104.33 kg Nathan Hayden MD Work Phone: [facility] 04-18-2023 12:17-0400 Diastolic blood pressure 80 mm[Hg] Nathan Hayden MD Work Phone: [facility] 04-18-2023 12:17-0400 Heart rate 84 /min Nathan Hayden MD Work Phone: [facility] 04-18-2023 12:17-0400 Respiratory rate 18 /min Nathan Hayden MD Work Phone: [facility] 04-18-2023 12:17-0400 SaO2% (BldA) [Mass fraction] 93 % Nathan Hayden MD Work Phone: [facility] 04-18-2023 12:17-0400 Systolic blood pressure 138 mm[Hg] Nathan Hayden MD Work Phone: [facility] 04-07-2023 10:10-0400 Body height 183.1 cm Nathan Hayden MD Work Phone: [facility] 04-07-2023 10:10-0400 Body mass index (BMI) [Ratio] 31.24 kg/m2 Nathan Hayden MD Work Phone: [facility] 04-07-2023 10:10-0400 Body temperature 97.9 [degF] Nathan Hayden MD Work Phone: [facility] 04-07-2023 10:10-0400 Body weight 104.78 kg Nathan Hayden MD Work Phone: [facility] 04-07-2023 10:10-0400 Diastolic blood pressure 82 mm[Hg] Nathan Hayden MD Work Phone: [facility] 04-07-2023 10:10-0400 Heart rate 84 /min Nathan Hayden MD Work Phone: [facility] 04-07-2023 10:10-0400 Respiratory rate 18 /min Nathan Hayden MD Work Phone: [facility] 04-07-2023 10:10-0400 SaO2% (BldA) [Mass fraction] 97 % Nathan Hayden MD Work Phone: [facility] 04-07-2023 10:10-0400 Systolic blood pressure 124 mm[Hg] Nathan Hayden MD Work Phone: [facility] 03-31-2023 08:12-0400 Body height 182.9 cm Nathan Hayden MD Work Phone: [facility] 03-31-2023 08:12-0400 Body mass index (BMI) [Ratio] 31.18 kg/m2 Nathan Hayden MD Work Phone: [facility] 03-31-2023 08:12-0400 Body temperature 97.59 [degF] Nathan Hayden MD Work Phone: [facility] 03-31-2023 08:12-0400 Body weight 104.33 kg Nathan Hayden MD Work Phone: [facility] 03-31-2023 08:12-0400 Diastolic blood pressure 82 mm[Hg] Nathan Hayden MD Work Phone: [facility] 03-31-2023 08:12-0400 Heart rate 112 /min Nathan Hayden MD Work Phone: [facility] 03-31-2023 08:12-0400 Respiratory rate 16 /min Nathan Hayden MD Work Phone: [facility] 03-31-2023 08:12-0400 SaO2% (BldA) [Mass fraction] 98 % Nathan Hayden MD Work Phone: [facility] 03-31-2023 08:12-0400 Systolic blood pressure 138 mm[Hg] Nathan Hayden MD Work Phone: [facility] 03-23-2023 18:10-0400 Body temperature 98.1 [degF] Nathan Collins MD Work Phone: [facility] 03-23-2023 18:10-0400 Diastolic blood pressure 66 mm[Hg] Nathan Collins MD Work Phone: [facility] 03-23-2023 18:10-0400 Heart rate 72 /min Nathan Collins MD Work Phone: [facility] 03-23-2023 18:10-0400 Respiratory rate 16 /min Nathan Collins MD Work Phone: [facility] 03-23-2023 18:10-0400 SaO2% (BldA) [Mass fraction] 99 % Nathan Collins MD Work Phone: [facility] 03-23-2023 18:10-0400 Systolic blood pressure 120 mm[Hg] Nathan Collins MD Work Phone: [facility] 03-22-2023 11:25-0400 Body temperature 98.2 [degF] Power Nelson MD Work Phone: [facility] 03-22-2023 11:25-0400 Diastolic blood pressure 73 mm[Hg] Power Nelson MD Work Phone: [facility] 03-22-2023 11:25-0400 Heart rate 68 /min Power Nelson MD Work Phone: [facility] 03-22-2023 11:25-0400 Respiratory rate 19 /min Power Nelson MD Work Phone: [facility] 03-22-2023 11:25-0400 SaO2% (BldA) [Mass fraction] 94 % Power Nelson MD Work Phone: [place] [facility] 03-22-2023 11:25-0400 Systolic blood pressure 114 mm[Hg] Power Nelson MD Work Phone: [facility] 03-17-2023 03:12-0400 Body height 182.9 cm Power Nelson MD Work Phone: [facility] 03-16-2023 23:00-0400 Body mass index (BMI) [Ratio] 31.19 kg/m2 Power Nelson MD Work Phone: [facility] 03-16-2023 23:00-0400 Body weight 104.33 kg Power Nelson MD Work Phone: [facility] 03-16-2023 20:44-0400 Diastolic blood pressure 77 mm[Hg] Shai Leonard MD Work Phone: [facility] 03-16-2023 20:44-0400 Heart rate 68 /min Shai Leonard MD Work Phone: [facility] 03-16-2023 20:44-0400 Respiratory rate 16 /min Shai Leonard MD Work Phone: [facility] 03-16-2023 20:44-0400 SaO2% (BldA) [Mass fraction] 96 % Shai Leonard MD Work Phone: [facility] 03-16-2023 20:44-0400 Systolic blood pressure 138 mm[Hg] Shai Leonard MD Work Phone: [facility] 03-16-2023 19:21-0400 Body temperature 97 [degF] Shai Leonard MD Work Phone: [facility] 03-16-2023 16:51-0400 Body mass index (BMI) [Ratio] 29.84 kg/m2 Shai Leonard MD Work Phone: [facility] 03-16-2023 16:51-0400 Body weight 99.79 kg Shai Leonard MD Work Phone: [facility] Comment on above: reported 02-27-2023 00:00-0400 Diastolic blood pressure 57 mm[Hg] Shai Leonard MD Work Phone: [facility] 02-27-2023 00:00-0400 Heart rate 63 /min Shai Leonard MD Work Phone: [facility] 02-27-2023 00:00-0400 Respiratory rate 16 /min Shai Leonard MD Work Phone: [facility] 02-27-2023 00:00-0400 SaO2% (BldA) [Mass fraction] 96 % Shai Leonard MD Work Phone: [facility] 02-27-2023 00:00-0400 Systolic blood pressure 100 mm[Hg] Shai Leonard MD Work Phone: [facility] 02-26-2023 20:37-0400 Body height 182.9 cm Shai Leonard MD Work Phone: [facility] 02-26-2023 20:36-0400 Body temperature 97.39 [degF] Shai Leonard MD Work Phone: [facility] 02-15-2023 15:30-0400 Body temperature 97 [degF] Ami Hay [employer] Work Phone: [facility] 02-15-2023 15:30-0400 Diastolic blood pressure 78 mm[Hg] Ami Hay [employer] Work Phone: [facility] 02-15-2023 15:30-0400 Heart rate 76 /min Ami Hay [employer] Work Phone: [facility] 02-15-2023 15:30-0400 Respiratory rate 18 /min Ami Hay [employer] Work Phone: [facility] 02-15-2023 15:30-0400 Systolic blood pressure 127 mm[Hg] Ami Hay [employer] Work Phone: [facility] 02-08-2023 15:17-0400 Body height 182.9 cm Kristi Bark DPM Work Phone: [facility] 02-08-2023 15:17-0400 Body mass index (BMI) [Ratio] 30.8 kg/m2 Kristi Bark DPM Work Phone: [facility] 02-08-2023 15:17-0400 Body temperature 97.81 [degF] Kristi Bryan DPM Work Phone: [facility] 02-08-2023 15:17-0400 Body weight 103 kg Kristi Bryan DPM Work Phone: [facility] 02-08-2023 13:16-0400 Body temperature 96.91 [degF] Ami Hay [employer] Work Phone: [facility] 02-08-2023 13:16-0400 Diastolic blood pressure 87 mm[Hg] Ami Hay [employer] Work Phone: [facility] 02-08-2023 13:16-0400 Heart rate 70 /min Ami Hay [employer] Work Phone: [facility] 02-08-2023 13:16-0400 Respiratory rate 18 /min Ami Hay [employer] Work Phone: [facility] 02-08-2023 13:16-0400 Systolic blood pressure 142 mm[Hg] Ami Hay [employer] Work Phone: [facility] 01-26-2023 10:56-0400 Body height 182.9 cm Nathan Hayden MD Work Phone: [facility] 01-26-2023 10:56-0400 Body mass index (BMI) [Ratio] 29.97 kg/m2 Nathan Hayden MD Work Phone: [facility] 01-26-2023 10:56-0400 Body temperature 98.49 [degF] Nathan Hayden MD Work Phone: [facility] 01-26-2023 10:56-0400 Body weight 100.25 kg Nathan Hayden MD Work Phone: [facility] 01-26-2023 10:56-0400 Diastolic blood pressure 64 mm[Hg] Nathan Hayden MD Work Phone: [facility] 01-26-2023 10:56-0400 Heart rate 93 /min Nathan Hayden MD Work Phone: [facility] 01-26-2023 10:56-0400 Respiratory rate 16 /min Nathan Hayden MD Work Phone: [facility] 01-26-2023 10:56-0400 SaO2% (BldA) [Mass fraction] 93 % Nathan Hayden MD Work Phone: [facility] 01-26-2023 10:56-0400 Systolic blood pressure 134 mm[Hg] Nathan Hayden MD Work Phone: [facility] 01-25-2023 13:45-0400 Body temperature 96.01 [degF] Ami Hay [employer] Work Phone: [facility] 01-25-2023 13:45-0400 Diastolic blood pressure 82 mm[Hg] Ami Hay [employer] Work Phone: [facility] 01-25-2023 13:45-0400 Heart rate 82 /min Ami Hay [employer] Work Phone: [facility] 01-25-2023 13:45-0400 Respiratory rate 19 /min Ami Hay [employer] Work Phone: [facility] 01-25-2023 13:45-0400 Systolic blood pressure 132 mm[Hg] Ami Hay [employer] Work Phone: [facility] 01-18-2023 13:40-0400 Body temperature 97.59 [degF] Ami Hay [employer] Work Phone: [facility] 01-18-2023 13:40-0400 Diastolic blood pressure 66 mm[Hg] Ami Hay [employer] Work Phone: [facility] 01-18-2023 13:40-0400 Heart rate 73 /min Ami Hay [employer] Work Phone: [facility] 01-18-2023 13:40-0400 Respiratory rate 19 /min Ami Hay [employer] Work Phone: [facility] 01-18-2023 13:40-0400 Systolic blood pressure 108 mm[Hg] Ami Hay [employer] Work Phone: 7(524)856-044366 [place] [address] 12-28-2022 13:39-0400 Body temperature 96.6 [degF] Ami Hay [employer] Work Phone: 8(123)742-416566 [place] [address] 12-28-2022 13:39-0400 Diastolic blood pressure 81 mm[Hg] Ami Hay [employer] Work Phone: 7(595)498-707266 [place] [address] 12-28-2022 13:39-0400 Heart rate 73 /min Ami Hay [employer] Work Phone: 9(664)349-684266 [place] [address] 12-28-2022 13:39-0400 Respiratory rate 20 /min Ami Hay [employer] Work Phone: 2(316)590-632866 [place] [address] 12-28-2022 13:39-0400 Systolic blood pressure 125 mm[Hg] Ami Hay [employer] Work Phone: 0(861)259-249966 [place] [address] 12-21-2022 13:08-0400 Body temperature 96.8 [degF] Ami Hay [employer] Work Phone: 4(553)516-913766 [place] [address] 12-21-2022 13:08-0400 Diastolic blood pressure 75 mm[Hg] Ami Hay [employer] Work Phone: 2(237)688-511966 [place] [address] 12-21-2022 13:08-0400 Heart rate 88 /min Ami Hay [employer] Work Phone: 5(147)829-220666 [place] [address] 12-21-2022 13:08-0400 Respiratory rate 18 /min Ami Hay [employer] Work Phone: 3(243)840-355166 [place] [address] 12-21-2022 13:08-0400 Systolic blood pressure 115 mm[Hg] Ami Hay [employer] Work Phone: 7(548)554-033166 [place] [address] 12-14-2022 09:22-0400 Body temperature 97.81 [degF] Ami Hay [employer] Work Phone: 6(938)015-044166 [place] [address] 12-14-2022 09:22-0400 Diastolic blood pressure 62 mm[Hg] Ami Hay [employer] Work Phone: [facility] 12-14-2022 09:22-0400 Heart rate 65 /min Ami Hay [employer] Work Phone: [facility] 12-14-2022 09:22-0400 Respiratory rate 19 /min Ami Hay [employer] Work Phone: [facility] 12-14-2022 09:22-0400 Systolic blood pressure 106 mm[Hg] Ami Hay [employer] Work Phone: [facility] 12-08-2022 09:24-0400 Body height 182.9 cm Nathan Hayden MD Work Phone: [facility] 12-08-2022 09:24-0400 Body mass index (BMI) [Ratio] 31.49 kg/m2 Nathan Hayden MD Work Phone: [facility] 12-08-2022 09:24-0400 Body temperature 97.5 [degF] Nathan Hayden MD Work Phone: [facility] 12-08-2022 09:24-0400 Body weight 105.33 kg Nathan Hayden MD Work Phone: [facility] 12-08-2022 09:24-0400 Diastolic blood pressure 78 mm[Hg] Nathan Hayden MD Work Phone: [facility] 12-08-2022 09:24-0400 Heart rate 78 /min Nathan Hayden MD Work Phone: [facility] 12-08-2022 09:24-0400 Respiratory rate 14 /min Nathan Hayden MD Work Phone: [facility] 12-08-2022 09:24-0400 SaO2% (BldA) [Mass fraction] 97 % [facility] 12-08-2022 09:24-0400 Systolic blood pressure 188 mm[Hg] Nathan Hayden MD Work Phone: [facility] 11-30-2022 13:58-0400 Body temperature 97.5 [degF] [facility] 11-30-2022 13:58-0400 Diastolic blood pressure 75 mm[Hg] Av Sarath Gal Wound Nurse [facility] 11-30-2022 13:58-0400 Heart rate 78 /min [facility] 11-30-2022 13:58-0400 Respiratory rate 16 /min [facility] 11-30-2022 13:58-0400 Systolic blood pressure 119 mm[Hg] [facility] 11-25-2022 15:11-0400 Body height 185.4 cm Bridget Dahl MD Work Phone: [facility] 11-25-2022 15:11-0400 Body mass index (BMI) [Ratio] 31.27 kg/m2 Bridget Dahl MD Work Phone: [facility] 11-25-2022 15:11-0400 Body temperature 98.2 [degF] Bridget Dahl MD Work Phone: [facility] 11-25-2022 15:11-0400 Body weight 107.5 kg Bridget Dahl MD Work Phone: [facility] 11-25-2022 15:11-0400 Diastolic blood pressure 59 mm[Hg] Bridget Dahl MD Work Phone: [facility] 11-25-2022 15:11-0400 Heart rate 68 /min Bridget Dahl MD Work Phone: [facility] 11-25-2022 15:11-0400 Respiratory rate 18 /min Bridget Dahl MD Work Phone: [facility] 11-25-2022 15:11-0400 SaO2% (BldA) [Mass fraction] 97 % Bridget Dahl MD Work Phone: [facility] 11-25-2022 15:11-0400 Systolic blood pressure 113 mm[Hg] Bridget Dahl MD Work Phone: [facility] 11-23-2022 13:37-0400 Body temperature 97.3 [degF] Ami Hay [employer] Work Phone: [facility] 11-23-2022 13:37-0400 Diastolic blood pressure 54 mm[Hg] Ami Hay [employer] Work Phone: [facility] 11-23-2022 13:37-0400 Heart rate 73 /min Ami Hay [employer] Work Phone: [facility] 11-23-2022 13:37-0400 Respiratory rate 20 /min Ami Hay [employer] Work Phone: [facility] 11-23-2022 13:37-0400 Systolic blood pressure 108 mm[Hg] Ami Hay [employer] Work Phone: [facility] 11-16-2022 08:03-0400 Body temperature 97.11 [degF] Ami Hay [employer] Work Phone: [place] [facility] 11-16-2022 08:03-0400 Diastolic blood pressure 67 mm[Hg] Ami Hay [employer] Work Phone: [facility] [facility] 11-16-2022 08:03-0400 Heart rate 77 /min Ami Hay [employer] Work Phone: [facility] 11-16-2022 08:03-0400 Respiratory rate 18 /min Ami Hay [employer] Work Phone: [facility] 11-16-2022 08:03-0400 Systolic blood pressure 110 mm[Hg] Ami Hay [employer] Work Phone: [facility] 11-03-2022 08:50-0400 Body height 182.9 cm Nathan Hayden MD Work Phone: [facility] 11-03-2022 08:50-0400 Body mass index (BMI) [Ratio] 31.68 kg/m2 Nathan Hayden MD Work Phone: [facility] 11-03-2022 08:50-0400 Body temperature 96.91 [degF] Nathan Hayden MD Work Phone: [facility] 11-03-2022 08:50-0400 Body weight 105.96 kg Nathan Hayden MD Work Phone: [facility] 11-03-2022 08:50-0400 Diastolic blood pressure 78 mm[Hg] Nathan Hayden MD Work Phone: [facility] 11-03-2022 08:50-0400 Heart rate 72 /min Nathan Hayden MD Work Phone: [facility] 11-03-2022 08:50-0400 Respiratory rate 16 /min Nathan Hayden MD Work Phone: [facility] 11-03-2022 08:50-0400 SaO2% (BldA) [Mass fraction] 98 % Nathan Hayden MD Work Phone: [facility] 11-03-2022 08:50-0400 Systolic blood pressure 122 mm[Hg] Nathan Hayden MD Work Phone: [facility] 10-21-2022 13:54-0500 Diastolic blood pressure 76 mm[Hg] Antony Suarez Jr., DO Work Phone: [facility] 10-21-2022 13:54-0500 Heart rate 70 /min Antony Suarez Jr. DO Work Phone: [facility] 10-21-2022 13:54-0500 Respiratory rate 16 /min Antony Suarez Jr., DO Work Phone: [facility] 10-21-2022 13:54-0500 SaO2% (BldA) [Mass fraction] 100 % Antony Suarez Jr. DO Work Phone: [facility] 10-21-2022 13:54-0500 Systolic blood pressure 123 mm[Hg] Antony Suarez Jr., DO Work Phone: [facility] 10-21-2022 13:44-0500 Body temperature 96.91 [degF] Antony Suarez Jr., DO Work Phone: [facility] 10-21-2022 11:24-0500 Body height 182.9 cm Antony Erick Snow, DO Work Phone: [facility] 10-21-2022 11:24-0500 Body mass index (BMI) [Ratio] 30.38 kg/m2 Antony Suarez Jr., DO Work Phone: [facility] 10-21-2022 11:24-0500 Body weight 101.61 kg Antony Suarez Jr., DO Work Phone: [facility] 09-29-2022 11:03-0500 Body height 182.9 cm Nathan Hayden MD Work Phone: [facility] 09-29-2022 11:03-0500 Body mass index (BMI) [Ratio] 30.41 kg/m2 Nathan Hayden MD Work Phone: [facility] 09-29-2022 11:03-0500 Body temperature 97.2 [degF] Nathan Hayden MD Work Phone: [facility] 09-29-2022 11:03-0500 Body weight 101.7 kg Nathan Hayden MD Work Phone: [facility] 09-29-2022 11:03-0500 Diastolic blood pressure 78 mm[Hg] Nathan Hayden MD Work Phone: [facility] 09-29-2022 11:03-0500 Heart rate 88 /min Nathan Hayden MD Work Phone: [facility] 09-29-2022 11:03-0500 Respiratory rate 16 /min Nathan Hayden MD Work Phone: [facility] 09-29-2022 11:03-0500 SaO2% (BldA) [Mass fraction] 97 % Nathan Hayden MD Work Phone: [facility] 09-29-2022 11:03-0500 Systolic blood pressure 124 mm[Hg] Nathan Hayden MD Work Phone: [facility] 08-26-2022 15:47-0500 Body height 182.9 cm Antony Suarez Jr., DO Work Phone: [facility] 08-26-2022 15:47-0500 Body mass index (BMI) [Ratio] 30.79 kg/m2 Antony Suarez Jr., DO Work Phone: [facility] 08-26-2022 15:47-0500 Body weight 102.97 kg Antony Suarez Jr., DO Work Phone: [facility] 08-25-2022 10:35-0500 Body height 185.4 cm Nathan Hayden MD Work Phone: [facility] 08-25-2022 10:35-0500 Body mass index (BMI) [Ratio] 30.11 kg/m2 Nathan Hayden MD Work Phone: [facility] 08-25-2022 10:35-0500 Body temperature 97.11 [degF] Nathan Hayden MD Work Phone: [facility] 08-25-2022 10:35-0500 Body weight 103.51 kg Nathan Hayden MD Work Phone: [facility] 08-25-2022 10:35-0500 Diastolic blood pressure 72 mm[Hg] Nathan Hayden MD Work Phone: [facility] 08-25-2022 10:35-0500 Heart rate 84 /min Nathan Hayden MD Work Phone: [facility] 08-25-2022 10:35-0500 Respiratory rate 14 /min Nathna Hayden MD Work Phone: [facility] 08-25-2022 10:35-0500 SaO2% (BldA) [Mass fraction] 94 % Nathan Hayden MD Work Phone: [facility] 08-25-2022 10:35-0500 Systolic blood pressure 128 mm[Hg] Nathan Hayden MD Work Phone: [facility] 07-07-2022 11:35-0500 Body height 185.4 cm Nathan Hayden MD Work Phone: [facility] 07-07-2022 11:35-0500 Body mass index (BMI) [Ratio] 31.9 kg/m2 Nathan Hayden MD Work Phone: [facility] 07-07-2022 11:35-0500 Body temperature 100.4 [degF] Nathan Hayden MD Work Phone: [facility] 07-07-2022 11:35-0500 Body weight 109.68 kg Nathan Hayden MD Work Phone: [facility] 07-07-2022 11:35-0500 Diastolic blood pressure 80 mm[Hg] Nathan Hayden MD Work Phone: [facility] 07-07-2022 11:35-0500 Heart rate 91 /min Nathan Hayden MD Work Phone: [facility] 07-07-2022 11:35-0500 Respiratory rate 13 /min Nathan Hayden MD Work Phone: [facility] 07-07-2022 11:35-0500 SaO2% (BldA) [Mass fraction] 96 % Nathan Hayden MD Work Phone: [facility] 07-07-2022 11:35-0500 Systolic blood pressure 130 mm[Hg] Nathan Hayden MD Work Phone: [facility] 06-07-2022 18:27-0400 Body height 182.9 cm Pattie DYSON Work Phone: [facility] 06-07-2022 18:27-0400 Body mass index (BMI) [Ratio] 32.67 kg/m2 Pattie DYSON Work Phone: [facility] 06-07-2022 18:27-0400 Body temperature 98.1 [degF] Pattie Roman [employer] Work Phone: [facility] 06-07-2022 18:27-0400 Body weight 109.27 kg Pattie Roman [employer] Work Phone: [facility] 06-07-2022 18:27-0400 Diastolic blood pressure 83 mm[Hg] Pattie Roman [employer] Work Phone: [facility] 06-07-2022 18:27-0400 Heart rate 74 /min Pattie Roman [employer] Work Phone: [facility] 06-07-2022 18:27-0400 Respiratory rate 18 /min Pattie Roman [employer] Work Phone: [facility] 06-07-2022 18:27-0400 SaO2% (BldA) [Mass fraction] 95 % Pattie Roman [employer] Work Phone: [facility] 06-07-2022 18:27-0400 Systolic blood pressure 145 mm[Hg] Pattie Roman [employer] Work Phone: [facility] 05-12-2022 18:49-0400 Body height 182.9 cm Ani Worley [employer] Work Phone: [facility] 05-12-2022 18:49-0400 Body mass index (BMI) [Ratio] 33.91 kg/m2 Ani Thomnefatly [employer] Work Phone: [facility] 05-12-2022 18:49-0400 Body weight 113.4 kg Ani Thomneftaly [employer] Work Phone: [facility] 05-12-2022 18:48-0400 Body temperature 98.6 [degF] Ani Meir [employer] Work Phone: [facility] 05-12-2022 18:48-0400 Diastolic blood pressure 61 mm[Hg] Ani Delany [employer] Work Phone: [facility] 05-12-2022 18:48-0400 Heart rate 84 /min Ani oWrley [employer] Work Phone: [facility] 05-12-2022 18:48-0400 Respiratory rate 22 /min Ani Worley [employer] Work Phone: [facility] 05-12-2022 18:48-0400 SaO2% (BldA) [Mass fraction] 94 % Ani Worley [employer] Work Phone: [facility] 05-12-2022 18:48-0400 Systolic blood pressure 131 mm[Hg] Ani Worley [employer] Work Phone: [facility] 05-03-2022 18:58-0400 Body height 182.9 cm Zhao Abraham MD Work Phone: [facility] [employer] 05-03-2022 18:58-0400 Body mass index (BMI) [Ratio] 33.23 kg/m2 Zhao Abraham MD Work Phone: [facility] [employer] 05-03-2022 18:58-0400 Body temperature 98.2 [degF] Zhao Abraham MD Work Phone: [facility] [employer] 05-03-2022 18:58-0400 Body weight 111.13 kg Zhao Abraham MD Work Phone: [facility] [employer] 05-03-2022 18:58-0400 Diastolic blood pressure 59 mm[Hg] Zhao Abraham MD Work Phone: [facility] [employer] 05-03-2022 18:58-0400 Heart rate 85 /min Zhao Abraham MD Work Phone: [facility] [employer] 05-03-2022 18:58-0400 Respiratory rate 18 /min Zhao Abraham MD Work Phone: [facility] 05-03-2022 18:58-0400 SaO2% (BldA) [Mass fraction] 98 % Zhao Abraham MD Work Phone: [facility] 05-03-2022 18:58-0400 Systolic blood pressure 113 mm[Hg] Zhao Abraham MD Work Phone: [facility] 04-21-2022 10:58-0400 Body temperature 98.29 [degF] Carolina Solis MD Work Phone: [facility] 04-21-2022 10:58-0400 Diastolic blood pressure 47 mm[Hg] Carolina Solis MD Work Phone: [facility] 04-21-2022 10:58-0400 Heart rate 63 /min Carolina Solis MD Work Phone: [facility] 04-21-2022 10:58-0400 Respiratory rate 16 /min Carolina Solis MD Work Phone: [facility] 04-21-2022 10:58-0400 SaO2% (BldA) [Mass fraction] 92 % Carolina Solis MD Work Phone: [facility] 04-21-2022 10:58-0400 Systolic blood pressure 87 mm[Hg] Carolina Solis MD Work Phone: [facility] 04-20-2022 18:51-0400 Body height 182.9 cm Carolina Solis MD Work Phone: [facility] 04-20-2022 18:51-0400 Body mass index (BMI) [Ratio] 36.66 kg/m2 Carolina Solis MD Work Phone: [facility] 04-20-2022 18:51-0400 Body weight 122.6 kg Carolina Solis MD Work Phone: [facility] 03-07-2022 02:19-0400 Diastolic blood pressure 62 mm[Hg] Nuno Cantor MD Work Phone: [facility] 03-07-2022 02:19-0400 Heart rate 86 /min Nuno Cantor MD Work Phone: [facility] 03-07-2022 02:19-0400 Respiratory rate 20 /min Nuno Cantor MD Work Phone: [facility] 03-07-2022 02:19-0400 SaO2% (BldA) [Mass fraction] 97 % Nuno Cantor MD Work Phone: [facility] 03-07-2022 02:19-0400 Systolic blood pressure 109 mm[Hg] Nuno Cantor MD Work Phone: [facility] 03-07-2022 00:02-0400 Body height 182.9 cm Nuno Cantor MD Work Phone: [facility] 03-07-2022 00:02-0400 Body mass index (BMI) [Ratio] 33.91 kg/m2 Nuno Cantor MD Work Phone: [facility] 03-07-2022 00:02-0400 Body weight 113.4 kg Nuno Cantor MD Work Phone: [facility] 03-07-2022 00:00-0400 Body temperature 99.39 [degF] Nuno Cantor MD Work Phone: [facility] 11-15-2021 11:52-0400 Body temperature 98.29 [degF] Nuno Cantor MD Work Phone: [facility] 11-15-2021 11:52-0400 Diastolic blood pressure 77 mm[Hg] Nuno Cantor MD Work Phone: [facility] 11-15-2021 11:52-0400 Heart rate 81 /min Nuno Cantor MD Work Phone: [facility] 11-15-2021 11:52-0400 Respiratory rate 22 /min Nuno Cantor MD Work Phone: [facility] 11-15-2021 11:52-0400 SaO2% (BldA) [Mass fraction] 95 % Nuno Cantor MD Work Phone: [facility] 11-15-2021 11:52-0400 Systolic blood pressure 135 mm[Hg] Nuno Cantor MD Work Phone: [facility] 11-15-2021 08:18-0400 Body mass index (BMI) [Ratio] 36.77 kg/m2 Nuno Cantor MD Work Phone: [facility] 11-15-2021 08:18-0400 Body weight 122.97 kg Nuno Cantor MD Work Phone: [facility] 11-13-2021 00:00-0400 Body height 182.9 cm Nuno Cantor MD Work Phone: [facility] 10-07-2021 12:19-0500 Body mass index (BMI) [Ratio] 40.69 kg/m2 Anidavid Tomasany [employer] Work Phone: [facility] 10-07-2021 12:19-0500 Body weight 136.08 kg Ani Delany [employer] Work Phone: [facility] 10-07-2021 12:18-0500 Body temperature 98.71 [degF] Ani Delany [employer] Work Phone: [facility] 10-07-2021 12:18-0500 Diastolic blood pressure 72 mm[Hg] Ani Delany [employer] Work Phone: [facility] 10-07-2021 12:18-0500 Heart rate 93 /min Ani Delany [employer] Work Phone: [facility] 10-07-2021 12:18-0500 Respiratory rate 24 /min Ani Delany [employer] Work Phone: [facility] 10-07-2021 12:18-0500 SaO2% (BldA) [Mass fraction] 95 % Ani Delany [employer] Work Phone: [facility] 10-07-2021 12:18-0500 Systolic blood pressure 154 mm[Hg] Anidavid Worley [employer] Work Phone: [facility] 04-14-2021 13:15-0400 Body height 182.9 cm Felipe Molina DPM Work Phone: [facility] 04-14-2021 13:15-0400 Body mass index (BMI) [Ratio] 35.94 kg/m2 Felipe Molina DPM Work Phone: [facility] 04-14-2021 13:15-0400 Body weight 120.2 kg Felipe Molina DPM Work Phone: [facility] 04-14-2021 13:15-0400 Diastolic blood pressure 74 mm[Hg] Felipe Molina DPM Work Phone: [facility] 04-14-2021 13:15-0400 Heart rate 78 /min Felipe Molina DPM Work Phone: [employer] 04-14-2021 13:15-0400 Systolic blood pressure 122 mm[Hg] Felipe Molina DPM Work Phone: [employer] 04-04-2021 02:18-0400 Body height 182.9 cm Nuno Cantor MD Work Phone: [facility] 04-04-2021 02:17-0400 Body temperature 97.59 [degF] Nuno Cantor MD Work Phone: [facility] 04-04-2021 02:17-0400 Diastolic blood pressure 57 mm[Hg] Nuno Cantor MD Work Phone: [employer] 04-04-2021 02:17-0400 Heart rate 80 /min Nuno Catnor MD Work Phone: [facility] 04-04-2021 02:17-0400 Respiratory rate 18 /min Nuno Cantor MD Work Phone: [facility] 04-04-2021 02:17-0400 SaO2% (BldA) [Mass fraction] 95 % Nuno Cantor MD Work Phone: [facility] 04-04-2021 02:17-0400 Systolic blood pressure 120 mm[Hg] Nuno Cantor MD Work Phone: [facility] 03-30-2021 12:47-0400 Body height 182.9 cm Sofía Devine MD Work Phone: [facility] 03-30-2021 12:47-0400 Body mass index (BMI) [Ratio] 35.94 kg/m2 Sofía Devine MD Work Phone: [facility] 03-30-2021 12:47-0400 Body weight 120.2 kg Sofía Devine MD Work Phone: [facility] 03-30-2021 12:46-0400 Body temperature 97.9 [degF] Sofía Devine MD Work Phone: [facility] 03-30-2021 12:46-0400 Diastolic blood pressure 67 mm[Hg] Sofía Devine MD Work Phone: [facility] 03-30-2021 12:46-0400 Heart rate 82 /min Sofía Devine MD Work Phone: [facility] 03-30-2021 12:46-0400 Respiratory rate 18 /min Sofía Devine MD Work Phone: [facility] 03-30-2021 12:46-0400 SaO2% (BldA) [Mass fraction] 96 % Sofía Devine MD Work Phone: [facility] 03-30-2021 12:46-0400 Systolic blood pressure 129 mm[Hg] Sofía Devine MD Work Phone: [facility] 02-02-2021 17:47-0400 Diastolic blood pressure 36 mm[Hg] Saulo Joseph MD Work Phone: [facility] 02-02-2021 17:47-0400 Heart rate 72 /min Saulo Joseph MD Work Phone: [facility] 02-02-2021 17:47-0400 Systolic blood pressure 104 mm[Hg] Saulo Joseph MD Work Phone: [facility] 02-02-2021 15:37-0400 Body temperature 98.2 [degF] Saulo Joseph MD Work Phone: [facility] 02-02-2021 15:37-0400 Respiratory rate 18 /min Saulo Joseph MD Work Phone: [facility] 02-02-2021 15:37-0400 SaO2% (BldA) [Mass fraction] 97 % Saulo Joseph MD Work Phone: [facility] 02-02-2021 15:36-0400 Body height 182.9 cm Saulo Joseph MD Work Phone: [facility] 02-02-2021 15:36-0400 Body mass index (BMI) [Ratio] 36.62 kg/m2 Saulo Joseph MD Work Phone: [facility] 02-02-2021 15:36-0400 Body weight 122.47 kg Saulo Joseph MD Work Phone: [facility] 01-15-2021 11:58-0400 Body mass index (BMI) [Ratio] 36.89 kg/m2 Diego Gupta MD Work Phone: [email or web address] Work Phone: 01-15-2021 11:58-0400 Body temperature 97.39 [degF] Diego Gupta MD Work Phone: [email or web address] Work Phone: 01-15-2021 11:58-0400 Body weight 123.38 kg Diego Gupta MD Work Phone: [email or web address] Work Phone: 01-15-2021 11:58-0400 Diastolic blood pressure 66 mm[Hg] Diego Gupta MD Work Phone: [email or web address] Work Phone: 01-15-2021 11:58-0400 Heart rate 66 /min Diego Gupta MD Work Phone: [email or web address] Work Phone: 01-15-2021 11:58-0400 Respiratory rate 16 /min Diego Gupta MD Work Phone: [email or web address] Work Phone: 01-15-2021 11:58-0400 SaO2% (BldA) [Mass fraction] 99 % Diego Gupta MD Work Phone: [email or web address] Work Phone: 01-15-2021 11:58-0400 Systolic blood pressure 107 mm[Hg] Diego Gupta MD Work Phone: [email or web address] Work Phone: 12-04-2020 13:11-0400 BP Diastolic 64 mm[Hg] [facility] 12-04-2020 13:11-0400 BP Systolic 123 mm[Hg] [facility] 12-04-2020 13:11-0400 Pulse (Heart Rate) 76 /min [facility] 12-04-2020 13:11-0400 Pulse Oximetry 94 % [facility] 12-04-2020 13:11-0400 Respiratory Rate 18 /min [facility] 12-04-2020 07:57-0400 Body Temperature 98.01 [degF] [facility] 12-04-2020 06:00-0400 BMI (Body Mass Index) 38.44 kg/m2 [facility] 12-04-2020 06:00-0400 Body weight 128.55 kg [facility] 12-03-2020 11:28-0400 Height 182.9 cm [facility] 11-01-2020 18:00-0500 BP Diastolic 83 mm[Hg] [facility] 11-01-2020 18:00-0500 BP Systolic 133 mm[Hg] [facility] 11-01-2020 18:00-0500 Pulse (Heart Rate) 63 /min Christopher Ng [facility] 11-01-2020 18:00-0500 Pulse Oximetry 97 % Christopher Ng [facility] 11-01-2020 16:00-0500 BMI (Body Mass Index) 36.62 kg/m2 Christophermireille Ng [facility] 11-01-2020 16:00-0500 Body Temperature 98.71 [degF] Christophermireille Ng [facility] 11-01-2020 16:00-0500 [facility] 16:00-0500 [facility].9 [facility]-01-[facility] 16:00-0500 Respiratory Rate 18 /min Christopher [facility] 09-03-2020 14:09-0500 BMI (Body Mass Index) 38.31 kg/m2 [facility] 09-03-2020 14:09-0500 Body Temperature 95.4 [degF] [facility] 09-03-2020 14:09-0500 Body weight 128.14 kg [facility] 09-03-2020 14:09-0500 BP Diastolic 74 mm[Hg] [facility] 09-03-2020 14:09-0500 BP Systolic 124 mm[Hg] [facility] 09-03-2020 14:09-0500 Height 182.9 cm [facility] 09-03-2020 14:09-0500 Pulse (Heart Rate) 88 /min [facility] 09-03-2020 14:09-0500 Pulse Oximetry 95 % [facility] 09-03-2020 14:09-0500 Respiratory Rate 18 /min [facility] 08-01-2020 09:30-0500 BP [facility] 09:30-0500 BP Systolic 117 mm[Hg] Saulo [facility] 08-01-2020 09:30-0500 P[facility] ([facility] Rate) 63 /[facility] 08-01-[facility] 09:30-0500 Pulse Oximetry 97 % [facility] 08-01-2020 09:30-0500 Respiratory Rate 16 /min [facility] 08-01-2020 08:03-0500 Respiratory rate 0 /min [facility] 08-01-2020 07:45-0500 BMI (Body Mass Index) 35.94 kg/m2 [facility] 08-01-2020 07:45-0500 Body Temperature 98.1 [degF] [facility] 08-01-2020 07:45-0500 Body weight 120.2 kg [facility] 08-01-2020 07:45-0500 Height 182.9 cm [facility] 07-14-2020 11:11-0500 BMI (Body Mass Index) 41.37 kg/m2 [facility] 07-14-2020 11:11-0500 Body Temperature 97.5 [degF] [facility] 07-14-2020 11:11-0500 Body weight 138.35 kg [facility] 07-14-2020 11:11-0500 BP Diastolic 72 mm[Hg] [facility] 07-14-2020 11:11-0500 BP Systolic 124 mm[Hg] [facility] 07-14-2020 11:11-0500 Height 182.9 cm [facility] 07-14-2020 11:11-0500 Pulse (Heart Rate) 92 /min [facility] 07-14-2020 11:11-0500 Pulse Oximetry 94 % [facility] 07-14-2020 11:11-0500 Respiratory Rate 22 /min [facility] 07-09-2020 20:01-0500 Pulse Oximetry 94 % [facility] 07-09-2020 18:00-0500 BP Diastolic 84 mm[Hg] [facility] 07-09-2020 18:00-0500 BP Systolic 160 mm[Hg] [facility] 07-09-2020 18:00-0500 Pulse (Heart Rate) 61 /min [facility] 07-09-2020 18:00-0500 Respiratory Rate 17 /min [facility] 07-09-2020 11:22-0500 Body Temperature 97.2 [degF] [facility] 07-09-2020 05:48-0500 BMI (Body Mass Index) 41.86 kg/m2 [facility] 07-09-2020 05:48-0500 Body weight 140 kg [facility] 07-08-2020 04:45-0500 Height 182.9 cm [facility] 07-08-2020 02:30-0500 Respiratory rate 16 /min [facility] 07-07-2020 23:46-0500 Respiratory rate 16 /min [facility] 06-30-2020 13:25-0500 BMI (Body Mass Index) 38.92 kg/m2 [facility] 06-30-2020 13:25-0500 Body weight 130.18 kg [facility] 06-30-2020 13:25-0500 BP Diastolic 83 mm[Hg] [facility] 06-30-2020 13:25-0500 BP Systolic 138 mm[Hg] [facility] 06-30-2020 13:25-0500 Height 182.9 cm [facility] 06-30-2020 13:25-0500 Pulse (Heart Rate) 89 /min [facility] 04-22-2020 14:04-0400 BMI (Body Mass Index) 38.92 kg/m2 [facility] 04-22-2020 14:04-0400 Body weight 130.18 kg Sbkendra Andino [facility] 04-22-2020 14:04-0400 BP Diastolic 85 mm[Hg] Sbkendra Andino [facility] 04-22-2020 14:04-0400 BP Systolic 138 mm[Hg] [facility] 04-22-2020 14:04-0400 Height 182.9 cm [facility] 04-22-2020 14:04-0400 Pulse (Heart Rate) 86 /min [facility] 01-18-2020 11:25-0400 Body Temperature 98.29 [degF] Nisa Tavares [facility] 01-18-2020 11:25-0400 BP Diastolic 80 mm[Hg] Nisa Tavares [facility] 01-18-2020 11:25-0400 BP Systolic 138 mm[Hg] Nisa Tavares [facility] 01-18-2020 11:25-0400 Pulse (Heart Rate) 89 /min Nisa Tavares [facility] 05-29-2020 11:25-0400 Pulse Oximetry 96 % Nisa Tavares [facility] 01-18-2020 11:25-0400 Respiratory Rate 20 /min Nisa Tavares [facility] 01-18-2020 10:09-0400 Body Temperature 97.5 [degF] Leandro [facility] 01-18-2020 10:09-0400 BP Diastolic 82 mm[Hg] [facility] 01-18-2020 10:09-0400 BP Systolic 142 mm[Hg] Leandro [facility] 01-18-2020 10:09-0400 Pulse (Heart Rate) 85 /min Leandro [facility] 01-18-2020 10:09-0400 Pulse Oximetry 97 % Leandro [facility] 01-17-2020 09:11-0400 Body Temperature 98.8 [degF] [facility] 01-17-2020 09:11-0400 BP Diastolic 68 mm[Hg] [facility] 01-17-2020 09:11-0400 BP Systolic 123 mm[Hg] Leandro [facility] 01-17-2020 09:11-0400 Pulse (Heart Rate) 98 /min Leandro [facility] 01-17-2020 09:11-0400 Pulse Oximetry 97 % Leandro [facility] 01-15-2020 13:03-0400 Body Temperature 98.2 [degF] [facility] 01-15-2020 13:03-0400 BP Diastolic 84 mm[Hg] [facility] 01-15-2020 13:03-0400 BP Systolic 146 mm[Hg] [facility] 01-15-2020 13:03-0400 Pulse (Heart Rate) 74 /min [facility] 01-15-2020 13:03-0400 Pulse Oximetry 97 % [facility] 01-15-2020 13:03-0400 Respiratory Rate 16 /min [facility] 01-13-2020 18:01-0400 Body Temperature 99.3 [degF] Harris Vargas [facility] 01-13-2020 18:01-0400 Pulse (Heart Rate) 90 /min Harriscameron HernándezAlicia [facility] 01-13-2020 18:01-0400 Pulse Oximetry 95 % Harris Vargas [facility] 01-13-2020 18:01-0400 Respiratory Rate 14 /min Harris Vargas [facility] 01-11-2020 11:12-0400 Body Temperature 98.4 [degF] [facility] 01-11-2020 11:12-0400 BP Diastolic 72 mm[Hg] [facility] 01-11-2020 11:12-0400 BP Systolic 126 mm[Hg] [facility] 01-11-2020 11:12-0400 Pulse (Heart Rate) 64 /min [facility] 01-11-2020 11:12-0400 Pulse Oximetry 96 % [facility] 01-11-2020 11:12-0400 Respiratory Rate 18 /min [facility] 01-10-2020 11:32-0400 Body Temperature 98.1 [degF] Leandro Sanchez [facility] 01-10-2020 11:32-0400 BP Diastolic 75 mm[Hg] Leandro [facility] 01-10-2020 11:32-0400 BP Systolic 132 mm[Hg] Leandro [facility] 01-10-2020 11:32-0400 Pulse (Heart Rate) 75 /min Leandro Sanchez [facility] 01-10-2020 11:32-0400 Pulse Oximetry 97 % Leandro Sanchez [facility] 01-09-2020 10:55-0400 Body Temperature 98.4 [degF] Pinky Brown [facility] 01-09-2020 10:55-0400 BP Diastolic 84 mm[Hg] [facility] 01-09-2020 10:55-0400 BP Systolic 142 mm[Hg] [facility] 01-09-2020 10:55-0400 Pulse (Heart Rate) 88 /min [facility] 01-09-2020 10:55-0400 Pulse Oximetry 98 % [facility] 01-09-2020 10:55-0400 Respiratory Rate 16 /min [facility] 01-08-2020 20:06-0400 Respiratory Rate 20 /min Sofía Dukes [facility] 01-08-2020 16:28-0400 Body Temperature 97.7 [degF] Sofía Dukes [facility] 01-08-2020 16:28-0400 BP Diastolic 76 mm[Hg] Sofía Dukes [facility] 01-08-2020 16:28-0400 BP Systolic 150 mm[Hg] Sofíagilmar Dukes [facility] 01-08-2020 16:28-0400 Pulse (Heart Rate) 70 /min Sofía Dukes [facility] 01-08-2020 16:28-0400 Pulse Oximetry 96 % Sofía Blayne [facility] 01-08-2020 05:54-0400 BMI (Body Mass Index) 38.96 kg/m2 Sofía Blayne [facility] 01-08-2020 05:54-0400 Body weight 130.3 kg Sofíagilmar Dukes [facility] 01-08-2020 05:54-0400 Height 182.9 cm Sofía [facility] 01-04-2020 14:51-0400 BMI (Body Mass Index) 35.26 kg/m2 [facility] 01-04-2020 14:51-0400 Body weight 117.94 kg [facility] 01-04-2020 14:51-0400 BP Diastolic 89 mm[Hg] [facility] 01-04-2020 14:51-0400 BP Systolic 152 mm[Hg] [facility] 01-04-2020 14:51-0400 Height 182.9 cm [facility] 01-04-2020 14:51-0400 Pulse (Heart Rate) 83 /min [facility] 01-04-2020 14:51-0400 Pulse Oximetry 92 % [facility] 11-06-2019 21:28-0400 Pulse Oximetry 94 % [facility] 11-06-2019 19:17-0400 Body Temperature 97.81 [degF] [facility] [place] 11-06-2019 19:17-0400 BP Diastolic 74 mm[Hg] [facility] [place] 11-06-2019 19:17-0400 BP Systolic 137 mm[Hg] [facility] 11-06-2019 19:17-0400 Pulse (Heart Rate) 81 /min Marmora Chon [facility], [place] 11-06-2019 19:17-0400 Respiratory Rate 20 /min [place] 11-06-2019 05:36-0400 BMI (Body Mass Index) 38.41 kg/m2 [facility] [place] 11-06-2019 05:36-0400 Body weight 128.46 kg [place] 11-06-2019 05:36-0400 Height 182.9 cm [place] 10-30-2019 14:43-0400 BMI (Body Mass Index) 41.15 kg/m2 [facility] 10-30-2019 14:43-0400 Body weight 137.62 kg [facility] 10-30-2019 14:43-0400 BP Diastolic 70 mm[Hg] [facility] 10-30-2019 14:43-0400 BP Systolic 112 mm[Hg] [facility] 10-30-2019 14:43-0400 Height 182.9 cm [facility] 10-30-2019 14:43-0400 Pulse (Heart Rate) 85 /min [facility] 10-30-2019 14:43-0400 Pulse Oximetry 96 % [facility] 10-30-2019 14:43-0400 Respiratory Rate 16 /min [facility] 04-05-2019 05:32-0400 BP Diastolic 80 mm[Hg] [facility] 04-05-2019 05:32-0400 BP Systolic 130 mm[Hg] [facility] 04-05-2019 05:32-0400 Pulse (Heart Rate) 58 /min [facility] 04-05-2019 05:32-0400 Pulse Oximetry 97 % [facility] 04-05-2019 05:32-0400 Respiratory Rate 22 /min [facility] 04-03-2019 10:38-0400 BP Diastolic 55 mm[Hg] [facility] 04-03-2019 10:38-0400 BP Systolic 140 mm[Hg] [facility] 04-03-2019 10:38-0400 Pulse (Heart Rate) 65 /min [place] [facility] 04-03-2019 10:38-0400 Pulse Oximetry 99 % [facility] 04-03-2019 10:38-0400 Respiratory Rate 18 /min [place] [facility] 04-03-2019 08:00-0400 Body Temperature 98.49 [degF] [facility] 11-06-2018 11:16-0400 BMI (Body Mass Index) 39.77 kg/m2 [facility] 11-06-2018 11:16-0400 Body Temperature 98.2 [degF] [facility] 11-06-2018 11:16-0400 BP Diastolic 68 mm[Hg] [facility] 11-06-2018 11:16-0400 BP Systolic 124 mm[Hg] [facility] 11-06-2018 11:16-0400 Height 182.9 cm [facility] 11-06-2018 11:16-0400 Pulse (Heart Rate) 84 /min [facility] 11-06-2018 11:16-0400 Pulse Oximetry 97 % [facility] 11-06-2018 11:16-0400 Respiratory Rate 16 /min [facility] 11-06-2018 11:16-0400 Weight 133 kg [facility] 10-06-2018 08:50-0500 BMI (Body Mass Index) 37.97 kg/m2 [facility] 10-06-2018 08:50-0500 BP Diastolic 65 mm[Hg] [facility] 10-06-2018 08:50-0500 BP Systolic 111 mm[Hg] [facility] 10-06-2018 08:50-0500 Height 182.9 cm [facility] 10-06-2018 08:50-0500 Pulse (Heart Rate) 63 /min [facility] 10-06-2018 08:50-0500 Weight 127.01 kg [facility] 09-15-2018 11:19-0500 BMI (Body Mass Index) 37.97 kg/m2 [facility] 09-15-2018 11:19-0500 BP Diastolic 82 mm[Hg] [facility] 09-15-2018 11:19-0500 BP Systolic 138 mm[Hg] [facility] 09-15-2018 11:19-0500 Height 182.9 cm Sb Andino [facility] 09-15-2018 11:19-0500 Pulse (Heart Rate) 80 /min Sb Andino [facility] 09-15-2018 11:19-0500 Weight 127.01 kg Sb Andino [facility] 07-31-2018 10:31-0500 BMI (Body Mass Index) 37.97 kg/m2 [facility] 07-31-2018 10:31-0500 Body Temperature 97.9 [degF] [facility] 07-31-2018 10:31-0500 Height 182.9 cm [facility] 07-31-2018 10:31-0500 Pulse (Heart Rate) 80 /min [facility] 07-31-2018 10:31-0500 Pulse Oximetry 94 % [facility] 07-31-2018 10:31-0500 Weight 127.01 kg [facility] 03-31-2018 10:13-0400 BMI (Body Mass Index) 38.79 kg/m2 Sb [facility] 03-31-2018 10:13-0400 BP Diastolic 84 mm[Hg] Sb Andino [facility] 03-31-2018 10:13-0400 BP Systolic 128 mm[Hg] Sb Andino [facility] 03-31-2018 10:13-0400 Height 182.9 cm Sb [facility] 03-31-2018 10:13-0400 Pulse (Heart Rate) 71 /min Sb Andino [facility] 03-31-2018 10:13-0400 Weight 129.73 kg Sb [facility] 03-07-2018 14:16-0400 BMI (Body Mass Index) 37.89 kg/m2 [facility] 03-07-2018 14:16-0400 BP Diastolic 77 mm[Hg] [facility] 03-07-2018 14:16-0400 BP Systolic 127 mm[Hg] [facility] 03-07-2018 14:16-0400 Pulse (Heart Rate) 106 /min [facility] 03-07-2018 14:16-0400 Weight 126.73 kg Paulino [facility] Encounters Encounter Date Encounter Type Care Provider Facility Start: 07-01-2025 ambulatory ANI [facility] Ambulatory Start: 06-30-2025 [facility] Start: 06-28-2025 End: 06-28-2025 Refill Merry Barba LPN [facility] Comment on above: Abscess of knee, rig ht (Primary Dx); History of total right knee replacement Start: 06-21-2025 End: 06-21-2025 Admission to same day surgery center Sofía Dukes MD Work Phone: [facility] Comment on above: Abscess of knee, rig ht (Primary Dx); History of total right knee replacement Start: 06-20-2025 End: 06-20-2025 Postop follow up visit related to original px Sofía Dukes MD Work Phone: [facility] Comment on above: Abscess of knee, rig ht (Primary Dx) Start: 06-20-2025 End: 06-20-2025 ambulatory ANI [facility] Start: 05-30-2025 End: 05-30-2025 Postop follow up visit related to original px Sofía Dukes MD Work Phone: [facility] Comment on above: Abscess of knee, rig ht (Primary Dx) Start: 05-30-2025 End: 05-30-[address] [facility] Start: 05-17-2025 ambulatory JACKSON AVITIA [facility] Start: 05-11-2025 End: 05-16-2025 Evaluation and management of inpatient Rosaline Araceli Arreaga DO Work Phone: [facility] Start: 05-09-2025 End: 05-09-2025 Office outpatient new 30 minutes Daniel Hammer MD Work Phone: [facility] Comment on above: Effusion of right kn ee (Primary Dx); Synovitis; Abscess of knee, right; History of total right knee replacement Start: 05-09-2025 End: 05-09-2025 Orders Only Merry Barba LPN [facility] Comment on above: Effusion of right kn ee (Primary Dx); Synovitis; Abscess of knee, right; History of total right knee replacement Start: 04-29-2025 End: 04-29-2025 Transcribe Orders Ani Worley CNP Work Phone: 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, unspecified laterality, unspecified ulceration site (HCC) (Primary Dx) Start: 04-02-2025 End: 04-05-2025 ambulatory [facility] Start: 04-02-2025 End: 04-05-2025 Evaluation and management of inpatient Maury Felipe Garcia DO Work Phone: [facility] Start: 02-15-2025 End: 02-15-2025 Evaluation and management of inpatient [facility] Start: 02-11-2025 End: 02-21-2025 Evaluation and management of inpatient [facility] Start: 01-04-2025 End: 01-04-2025 Office outpatient visit 15 minutes Cecilia Gonzales DPM Work Phone: [facility] Comment on above: Edema of both lower extremities [R60.0] (Primary Dx) Start: 01-04-2025 End: 01-04-2025 ambulatory [facility] Start: 01-02-2025 End: 01-02-2025 Office outpatient new 45 minutes Ani Worley [employer] Work Phone: [facility] Comment on above: Venous congestion (P rimary Dx); Edema of both lower extremities; Pulmonary hypertension (HCC); Skin ulcer of left lower leg, limited to breakdown of skin (HCC); Obesity (BMI 30-39.9) Start: 01-02-2025 End: 01-02-2025 ambulatory ANI WORLEY [facility] Start: 12-25-2024 End: 12-25-2024 Transcribe Orders Ani Worley [employer] Work Phone: [facility] Comment on above: PVD (peripheral vasc ular disease) (Primary Dx) Start: 12-24-2024 End: 12-24-2024 Documentation procedure Margot Gallegos RN [facility] Start: 12-21-2024 End: 12-21-2024 Office outpatient visit 15 minutes Cecilia Sabry Janet DPM Work Phone: [facility] Comment on above: Skin ulcer of planta r aspect of right foot with necrosis of muscle (HCC) (Primary Dx) Start: 12-21-2024 End: 12-21-2024 ambulatory [facility] Start: 12-20-2024 End: 12-20-2024 Transcribe Orders Ani Worley [employer] Work Phone: [facility] Comment on above: Disease of vein (Grisleda gunderson Dx) Start: 11-23-2024 End: 11-23-2024 ambulatory [facility] Start: 11-23-2024 End: 11-23-2024 Office outpatient visit 15 minutes Cecilia Sabry Janet DPM Work Phone: [facility] Comment on above: Skin ulcer of right lower leg with fat layer exposed (HCC) (Primary Dx); Skin ulcer of left lower leg with fat layer exposed (HCC); Skin ulcer of plantar aspect of right foot with necrosis of muscle (HCC) Start: 11-16-2024 End: 11-16-2024 ambulatory [facility] Start: 11-09-2024 End: 11-09-2024 ambulatory [facility] Start: 10-31-2024 End: 10-31-2024 Transcribe Orders Ani Worley [employer] Work Phone: [facility] Comment on above: Muscle weakness (Griselda gunderson Dx) Start: 10-18-2024 End: 10-18-2024 Orders Only Shahrzad Hodges RN [facility] Comment on above: Compression fracture of T7 vertebra, initial encounter (HCC) (Primary Dx) Start: 10-15-2024 Critical care ill/in jured patient init 30-74 min Jose Lozano MD Work Phone: [facility] Start: 10-15-2024 End: 10-24-2024 Evaluation and management of inpatient Jose Lozano MD Work Phone: [facility] Start: 07-05-2024 ambulatory TAWANDA MORGAN [facility] Start: 07-02-2024 End: 07-05-2024 Evaluation and management of inpatient Jose Lozano MD Work Phone: [facility] Start: 04-27-2024 ambulatory [facility] Start: 04-09-2024 ambulatory [facility] Start: 03-02-[address] [facility] Start: 01-17-2024 End: 01-17-2024 Office outpatient visit 25 minutes ALEXEY Radford DPM Work Phone: [facility] Comment on above: Midfoot collapse of right lower extremity (Primary Dx); Pes planus of both feet; Type 2 diabetes mellitus without complication, without long-term current use of insulin (HCC); Peripheral vascular disease (HCC); Arthritis of midfoot, unspecified laterality; Chronic venous hypertension, unspecified laterality Start: 12-22-2023 Transcribe Orders Clint Acuna [facility] Comment on above: Cellulitis, unspecif ied cellulitis site (Primary Dx) Encounter for screen ing colonoscopy (Primary Dx) Start: 10-10-2023 End: 06-18-2024 Evaluation and management of inpatient Reg Hartman [facility] Start: 09-19-2023 End: 09-19-2023 Emergency department patient visit FELIPE [facility] Start: 09-18-2023 End: 09-18-2023 [facility] Start: 09-09-2023 End: 09-09-2023 Postop follow up visit related to original px Cecilia Gonzales DPM Work Phone: [facility] Comment on above: Chronic ulcer of rig ht leg with fat layer exposed (HCC) (Primary Dx) Start: 09-02-2023 End: 09-02-2023 Postop follow up visit related to original px Cecilia Gonzales DPM Work Phone: [facility] Comment on above: Chronic ulcer of rig ht leg with fat layer exposed (HCC) (Primary Dx) Start: 08-26-2023 End: 08-26-2023 Postop follow up visit related to original px Cecilia Donna Gonzales DPM Work Phone: [facility] Comment on above: Chronic ulcer of rig ht leg with fat layer exposed (HCC) (Primary Dx) Start: 08-19-2023 End: 08-19-2023 Patient encounter procedure Cecilia Gonzales DPM Work Phone: [facility] Comment on above: Chronic ulcer of lef t leg with fat layer exposed (HCC) (Primary Dx); 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) Start: 07-29-2023 End: 08-11-2023 Evaluation and management of inpatient Kash Majano MD Work Phone: [facility] Start: 07-29-2023 End: 07-29-2023 Office outpatient visit 25 minutes Cecilia Gonzales DPM Work Phone: [facility] Comment on above: Abscess of right kne e (Primary Dx); Skin ulcer of right knee with fat layer exposed (HCC); Wound of right leg, subsequent encounter; Ulcer of left lower extremity with fat layer exposed (HCC) Start: 07-19-2023 Documentation procedure Daria dumas LPN [facility] Start: 07-15-2023 End: 07-15-2023 Office outpatient visit 15 minutes Cecilia Gonzales DPM Work Phone: [facility] Comment on above: Ulcer of left lower extremity with fat layer exposed (HCC) (Primary Dx); Wound of right leg, subsequent encounter Start: 07-08-2023 End: 07-08-2023 Patient encounter procedure Cecilia Gonzales DPM Work Phone: [facility] Comment on above: Ulcer of left lower extremity with fat layer exposed (HCC) (Primary Dx); Wound of right leg, subsequent encounter Start: 07-01-2023 End: 07-01-2023 Office outpatient visit 15 minutes Cecilia Gonzales DPM Work Phone: [facility] Comment on above: Ulcer of left lower extremity with fat layer exposed (HCC) (Primary Dx); Wound of right leg, subsequent encounter Start: 06-17-2023 End: 06-17-2023 Postop follow up visit related to original px [facility] Work Phone: [facility] Comment on above: Leg hematoma, right, sequela (Primary Dx); Leg hematoma, right, initial encounter; Ulcer of left lower extremity with fat layer exposed (HCC) Start: 06-11-2023 Documentation procedure Nathan Collins MD Work Phone: [facility] Comment on above: Admission H&P Start: 05-30-2023 End: 05-31-2023 Emergency department patient visit [facility] Start: 05-24-2023 Documentation procedure Nathan Collins MD Work Phone: [facility] Comment on above: Admission H&P Start: 05-17-2023 End: 05-17-2023 Emergency department patient visit [facility] Start: 05-02-2023 ambulatory [facility] Start: 04-26-2023 ambulatory [facility] Start: 04-26-2023 End: 04-26-2023 Clinical Support Encounter Nathan Hayden MD Work Phone: [facility] Comment on above: Pressure ulcer of ri ght foot, stage 3 (Primary Dx); Venous stasis ulcer of right lower leg with edema of right lower leg; Lymphedema; Chronic venous insufficiency; Venous stasis ulcer of left lower leg with edema of left lower leg Start: 04-18-2023 ambulatory [facility] Start: 04-18-2023 Encounter for genera l adult medical examination without abnormal findings NATHAN HAYDEN [facility] Start: 04-18-2023 End: 04-18-2023 Office outpatient visit 15 minutes Nathan Hayden MD Work Phone: [facility] Comment on above: Pancytopenia (Primar y Dx); Chronic hepatitis C without hepatic coma; Wound of right lower extremity, subsequent encounter; Left leg cellulitis; Alcoholic cirrhosis, unspecified whether ascites present; Obesity (BMI 30-39.9); Healthcare maintenance; Hepatitis B core antibody positive; Housing instability Start: 04-18-2023 End: 04-18-2023 Patient encounter status Nathan Hayden MD Work Phone: [facility] Start: 04-12-2023 ambulatory [facility] Start: 04-07-2023 [facility] Start: 04-07-2023 End: 04-07-2023 Office outpatient visit 15 minutes Nathan Hayden MD Work Phone: [facility] Comment on above: Left leg cellulitis (Primary Dx); Close exposure to COVID-19 virus; Chronic hepatitis C without hepatic coma; Wound of right lower extremity, subsequent encounter; Pancytopenia; Alcoholic cirrhosis, unspecified whether ascites present; Healthcare maintenance; Obesity (BMI 30-39.9) Start: 04-07-2023 End: 04-07-2023 Patient encounter status Nathan Hayden MD Work Phone: [facility] Start: 03-31-2023 [facility] Start: 03-31-2023 End: 03-31-2023 Office outpatient visit 25 minutes Nathan Hayden MD Work Phone: [facility] Comment on above: Wound of right lower extremity, subsequent encounter (Primary Dx); Chronic hepatitis C without hepatic coma; Pancytopenia; MSSA (methicillin susceptible Staphylococcus aureus) infection; Alcoholic cirrhosis, unspecified whether ascites present; Left leg cellulitis Start: 03-23-2023 Documentation procedure Nathan Collins MD Work Phone: [facility] Comment on above: H&P Admission Start: 03-17-2023 End: 03-22-2023 Evaluation and management of inpatient [facility] Start: 03-16-2023 End: 03-22-2023 Evaluation and management of inpatient Power Nelson MD Work Phone: [facility] Comment on above: Bilateral cellulitis of lower leg Start: 03-16-2023 End: 03-16-2023 Emergency department patient visit Shai Leonard MD Work Phone: [facility] Start: 03-11-2023 ambulatory ANI [facility] Start: 03-01-2023 ambulatory [facility] Start: 02-27-2023 End: 03-03-2023 Evaluation and management of inpatient [facility] Start: 02-26-2023 End: 02-27-2023 Evaluation and management of inpatient Shai Leonard MD Work Phone: [facility] Comment on above: Cellulitis and absce ss of left lower extremity Start: 02-21-2023 ambulatory ANI [facility] Start: 02-15-2023 ambulatory [place] AYALA [facility] Start: 02-15-[address] [facility] Start: 02-15-2023 End: 02-15-2023 Office outpatient visit 25 minutes Nj Ayala [employer] Work Phone: [facility] Comment on above: Venous stasis ulcer of right lower leg with edema of right lower leg (Primary Dx); Pressure ulcer of right foot, stage 3; Chronic venous insufficiency; Lymphedema Start: 02-08-2023 [facility] Start: 02-08-2023 End: 02-08-2023 Office outpatient new 45 minutes Kristi Bryan DPM Work Phone: [facility] Comment on above: Mass of right foot ( Primary Dx); Bursitis of right foot; Subluxation of foot joint, right, initial encounter Start: 02-08-2023 ambulatory [facility] Start: 02-08-2023 ambulatory [facility] Start: 02-08-2023 End: 02-08-2023 Office outpatient visit 25 minutes Nj Ayala [employer] Work Phone: [facility] Comment on above: Venous stasis ulcer of right lower leg with edema of right lower leg (Primary Dx); Chronic venous insufficiency; Lymphedema; Pressure ulcer of right foot, stage 3; Foot mass, right Start: 02-01-2023 ambulatory [facility] Start: 01-26-2023 End: 01-26-2023 Office outpatient visit 15 minutes Nathan Hayden MD Work Phone: [facility] Disease Comment on above: Chronic hepatitis C without hepatic coma (Primary Dx); Hepatitis B core antibody positive; Pancytopenia; Healthcare maintenance; Cirrhosis of liver without ascites, unspecified hepatic cirrhosis type; Alcoholic cirrhosis, unspecified whether ascites present; Hand weakness; Wound of right lower extremity, subsequent encounter Start: 01-26-2023 End: 01-26-2023 Patient encounter status Nathan Hayden MD Work Phone: [facility] Infectious Disease Start: 01-25-2023 ambulatory [facility] Start: 01-25-2023 End: 01-25-2023 Office outpatient visit 25 minutes Nj Ayala [employer] Work Phone: [facility] Comment on above: Venous stasis ulcer of right lower leg with edema of right lower leg (Primary Dx); Chronic venous insufficiency; Lymphedema; Foot mass, right Start: 01-25-2023 ambulatory [facility] Sheryl AYALA [facility] Start: 01-18-2023 ambulatory [facility] Start: 01-18-2023 End: 01-18-2023 Office outpatient visit 25 minutes Nj Ayala [employer] Work Phone: [facility] Comment on above: Venous stasis ulcer of right lower leg with edema of right lower leg (Primary Dx); Chronic venous insufficiency; Lymphedema Start: 01-11-2023 ambulatory [facility] Start: 01-11-2023 ambulatory [facility] Start: 01-04-2023 ambulatory [facility] Start: 12-28-2022 ambulatory [facility] Start: 12-28-2022 End: 12-28-2022 Office outpatient visit 25 minutes Ami Sheryl Hay [employer] Work Phone: [facility] Comment on above: Venous stasis ulcer of right lower leg with edema of right lower leg (Primary Dx); Chronic venous insufficiency; Lymphedema; Fungal dermatitis Start: 12-21-2022 ambulatory [facility] Start: 12-21-2022 End: 12-21-2022 Office outpatient visit 25 minutes Ami Sheryl Ayala [employer] Work Phone: [facility] Comment on above: Venous stasis ulcer of right lower leg with edema of right lower leg (Primary Dx); Chronic venous insufficiency; Lymphedema Start: 12-14-2022 ambulatory [facility] Start: 12-14-2022 ambulatory [facility] Start: 12-14-2022 End: 12-14-2022 Office outpatient visit 25 minutes Ami Sheryl Ayala [employer] Work Phone: [facility] Comment on above: Venous stasis ulcer of right lower leg with edema of right lower leg (Primary Dx); Chronic venous insufficiency; Lymphedema Start: 12-08-2022 End: 12-08-2022 Subsequent hospital visit by physician Nathan Hayden MD Work Phone: [facility] CT Scan Comment on above: Arrived Start: 12-08-2022 End: 12-08-2022 Office outpatient visit 25 minutes Nathan Hayden MD Work Phone: [facility] Infectious Disease Comment on above: Chronic hepatitis C without hepatic coma (Primary Dx); Hepatitis B core antibody positive; Pancytopenia; Cirrhosis of liver without ascites, unspecified hepatic cirrhosis type; Healthcare maintenance; Obesity (BMI 30-39.9) Start: 12-08-2022 End: 12-08-2022 Patient encounter status [facility] Hayden MD [facility] Start: 12-07-2022 ambulatory [facility]IDAVID [facility] Start: 11-30-2022 ambulatory [facility]AVID [facility] Start: 11-30-2022 End: 11-30-2022 Clinical Support Encounter Nj Ayala [employer] Work Phone: [facility] Comment on above: Venous stasis ulcer of right lower leg with edema of right lower leg (Primary Dx); Chronic venous insufficiency Start: 11-29-2022 ambulatory ANI [facility] Start: 11-25-2022 ambulatory ANI [facility] Start: 11-25-2022 End: 11-25-2022 Office outpatient new 45 minutes Bridget Dahl MD [facility] Comment on above: Pancytopenia (Primar y Dx); Thrombocytopenia; Leukopenia, unspecified type; Microcytic hypochromic anemia; Chronic hepatitis C without hepatic coma; 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; Hepatosplenomegaly Start: 11-23-2022 ambulatory ANI [facility] Start: 11-23-2022 End: 11-23-2022 Office outpatient visit 25 minutes Nj Ayala [employer] Work Phone: [facility] Comment on above: Venous stasis ulcer of right lower leg with edema of right lower leg (Primary Dx); Chronic venous insufficiency; Lymphedema Start: 11-16-2022 ambulatory [facility]AVID [facility] Start: 11-16-2022 End: 11-16-2022 Office outpatient visit 25 minutes Nj Ayala [employer] Work Phone: [facility] Comment on above: Venous stasis ulcer of right lower leg with edema of right lower leg (Primary Dx); Chronic venous insufficiency; Lymphedema Start: 11-11-2022 ambulatory [facility]ID [facility] Start: 11-09-2022 ambulatory [facility]ID [facility] Start: 11-03-2022 End: 11-03-2022 Office outpatient visit 25 minutes Nathan Hayden MD Work Phone: [facility] Infectious [facility] Comment on above: Wound of right lower extremity, subsequent encounter (Primary Dx); Chronic hepatitis C without hepatic coma; Hepatitis B core antibody positive; Pancytopenia; Obesity (BMI 30-39.9); Healthcare maintenance; Cirrhosis of liver without ascites, unspecified hepatic cirrhosis type Start: 11-03-2022 End: 11-03-2022 Patient encounter status Nathan Hayden MD Work Phone: [facility] Infectious Disease Start: 10-21-2022 End: 10-21-2022 Subsequent hospital visit by physician Antony Suarez DO Work Phone: [facility] Start: 09-29-2022 End: 09-29-2022 Office outpatient visit 25 minutes Nathan Hayden MD Work Phone: [facility] Comment on above: Chronic hepatitis C without hepatic coma (Primary Dx); Hepatitis B core antibody positive; Pancytopenia; Healthcare maintenance; Obesity (BMI 30-39.9); Cirrhosis of liver without ascites, unspecified hepatic cirrhosis type; Wound of right lower extremity, subsequent encounter Start: 09-29-2022 End: 09-29-2022 Patient encounter status Nathan Hayden MD Work Phone: [facility] Infectious [facility] Start: 08-26-2022 End: 08-26-2022 Office outpatient new 45 minutes Antony Suarez DO Work Phone: [facility] Comment on above: Cirrhosis of liver w ithout ascites, unspecified hepatic cirrhosis type (Primary Dx); Chronic hepatitis C without hepatic coma Start: 08-25-2022 End: 08-25-2022 Office outpatient visit 25 minutes Nathan Hayden MD Work Phone: [facility] Comment on above: Chronic hepatitis C without hepatic coma (Primary Dx); Hepatitis B core antibody positive; Healthcare maintenance; Alcoholic cirrhosis, unspecified whether ascites present; Pancytopenia; Obesity (BMI 30-39.9) Start: 08-25-2022 End: 08-25-2022 Patient encounter status Nathan Hayden MD Work Phone: [facility] Infectious Disease Start: 07-07-2022 End: 07-07-2022 Office outpatient visit 15 minutes Nathan Hayden MD Work Phone: [facility] Infectious Disease Comment on above: Chronic hepatitis C without hepatic coma (Primary Dx); Hepatitis B core antibody positive; Healthcare maintenance; Obesity (BMI 30-39.9); Pancytopenia; Alcoholic cirrhosis, unspecified whether ascites present Start: 07-07-2022 End: 07-07-2022 Patient encounter status Nathan Hayden MD Work Phone: [facility] Infectious Disease Start: 06-07-2022 End: 06-07-2022 Office outpatient visit 15 minutes Pattie Roman [employer] Work Phone: [facility] Comment on above: Referral of patient (Primary Dx); Chronic viral hepatitis B without delta agent and 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; Chronic hepatitis C without hepatic coma Start: 05-12-2022 End: 05-12-2022 Emergency department patient visit Ani Meir [employer] Work Phone: [facility] Emergency Department Start: 05-03-2022 End: 05-03-2022 Emergency department patient visit [facility] Start: 05-03-2022 End: 05-03-2022 Emergency department patient visit Zhao Abraham MD Work Phone: [facility] ED Comment on above: Ulcer of right foot, unspecified ulcer stage (HCC) (Primary Dx); Lymphedema of both lower extremities Start: 04-20-2022 End: 04-21-2022 Evaluation and management of inpatient Carolina Solis MD Work Phone: [facility] Start: 03-06-2022 End: 03-07-2022 Emergency department patient visit Nuno Cantor MD Work Phone: [facility] Emergency Department Start: 11-12-2021 End: 11-15-2021 Evaluation and management of inpatient Nuno Cantor MD Work Phone: [facility] ICU Comment on above: Hypotension Start: 10-07-2021 End: 10-07-2021 Emergency department patient visit Ani Worley [employer] Work Phone: [facility] Emergency Department Start: 06-03-2021 End: 06-04-2021 Evaluation and management of inpatient BLANCA PINEDA MATEO [facility] Start: 04-14-2021 End: 04-14-2021 Office outpatient new 45 minutes Felipe Molina DPM Work Phone: [facility] Podiat[facility] Comment on above: Acquired varus defor mity of left foot (Primary Dx); Hallux rigidus, acquired, left; Fracture of second toe, left, open, with malunion, subsequent encounter Start: 04-04-2021 End: 04-04-2021 Emergency department patient visit Nuno Cantor MD Work Phone: [facility] Emergency Department Start: 03-30-2021 End: 03-30-2021 Emergency department patient visit Sofía Devine MD Work Phone: [facility] Emergency Department Start: 02-02-2021 End: 02-02-2021 Emergency department patient visit Saulo Joseph MD Work Phone: [facility] Emergency Department Start: 01-15-2021 End: 01-15-2021 Emergency department patient visit DIEGO GUPTA [facility] Start: 01-15-2021 End: 01-15-2021 Emergency department patient visit Diego Gupta MD Work Phone: [facility] ED Start: 12-03-2020 End: 12-04-2020 Evaluation and management of inpatient Maury Garcia Work Phone: [facility] Start: 11-01-2020 End: 11-01-2020 Emergency department patient visit Christopher Ng Work Phone: [facility] Emergency Department Start: 10-29-2020 End: 10-29-2020 Orders Only Mona Jung Work Phone: [facility] Start: 09-03-2020 End: 09-03-2020 Office outpatient visit 25 minutes Palmer Givens Work Phone: [facility] Comment on above: Pancytopenia (Primar y Dx); Atrial fibrillation, unspecified type; Essential hypertension; Chronic obstructive pulmonary disease, unspecified COPD type; Chronic pain syndrome Start: 08-01-2020 End: 08-01-2020 Emergency department patient visit Saulo Joseph Work Phone: [facility] Emergency Department Comment on above: Suspected COVID-19 v irus infection (Primary Dx); Asthma with acute exacerbation, unspecified asthma severity, unspecified whether persistent; Morbid obesity (HCC); H/O CHF; Paroxysmal atrial fibrillation (HCC); Medication refill Start: 07-28-2020 End: 07-28-2020 Documentation procedure Judith Cruz [facility] Start: 07-14-2020 End: 07-14-2020 Office outpatient visit 15 minutes Palmer Givens Work Phone: [facility] Comment on above: Chronic obstructive pulmonary disease with acute exacerbation (Primary Dx); Acute respiratory failure, unspecified whether with hypoxia or hypercapnia; Atrial fibrillation, unspecified type; Essential hypertension; Anemia, unspecified type; Thrombocytopenia; Elevated troponin; Elevated brain natriuretic peptide (BNP) level; Marijuana use Start: 07-11-2020 End: 07-11-2020 Documentation procedure Carina Green Work Phone: [facility] Start: 07-08-2020 End: 07-09-2020 Evaluation and management of inpatient VENANCIO QUIROS [facility] Start: 07-07-2020 End: 07-09-2020 Evaluation and management of inpatient Marisolreynaldo Vernon Jhon Work Phone: [facility] Comment on above: Acute respiratory fa ilure, unspecified whether with hypoxia or hypercapnia (HCC) (Primary Dx); COPD exacerbation (HCC); Cannabis abuse; Acute exacerbation of chronic obstructive pulmonary disease (COPD) (HCC) Start: 06-30-2020 End: 06-30-2020 Office outpatient visit 15 minutes Sb Zena Exten Work Phone: [facility] Comment on above: Acquired pes planova lgus of right foot (Primary Dx); Arthritis of right foot Start: 04-22-2020 End: 04-22-2020 Subsequent hospital visit by physician Sb Andino Work Phone: [facility] Comment on above: Pain Start: 04-22-2020 End: 04-22-2020 Office outpatient visit 15 minutes Sbkendra Andino Work Phone: [facility] Comment on above: Toe dislocation, lef t, subsequent encounter (Primary Dx); Arthritis of first metatarsophalangeal (MTP) joint of left foot; Acquired pes planovalgus of right foot; Arthritis of right foot Start: 01-30-2020 End: 01-30-2020 Emergency department patient visit Radames Galvin Work Phone: [facility] Emergency Department Start: 01-25-2020 End: 01-25-2020 Home visit Jignesh Gilbert [facility] Comment on above: PT OASIS DISCHARGE SN HH NON-OASIS/DISC IPLINE DC Start: 01-24-2020 End: 01-24-2020 Home visit Jignesh Gilbert [facility] Comment on above: PT NON-OASIS/DISCIPL INE DISCHARGE Start: 01-23-2020 End: 01-23-2020 Postop follow up visit related to original px Sofía March Blayne Work Phone: [facility] Comment on above: Status post total ri ght knee replacement (Primary Dx); Primary osteoarthritis of right knee Start: 01-22-2020 End: 01-22-2020 Documentation procedure Daria Dumont [facility] Start: 01-22-2020 End: 01-22-2020 Home visit Rosaline Barba [facility] Comment on above: HYDROPONICS WORKER HH MISSED VISIT Start: 01-18-2020 End: 01-18-2020 Home visit Leandro Sanchez [facility] Comment on above: FIRMWARE TEST ENGINEER ROUTINE VISIT SN HH ROUTINE VISIT Start: 01-17-2020 End: 01-17-2020 Home visit Leandro Sanchez [facility] Comment on above: FIRMWARE TEST ENGINEER ROUTINE VISIT Start: 01-16-2020 End: 01-16-2020 Documentation procedure Merry Barba [facility] Start: 01-15-2020 End: 01-15-2020 Documentation procedure Daria Dumont [facility] Start: 01-15-2020 End: 01-15-2020 Home visit Pinky Brown [facility] Comment on above: SN HH ROUTINE VISIT FIRMWARE TEST ENGINEER MISSED VISIT Start: 01-14-2020 End: 01-14-2020 Home visit Rosaline Barba [facility] Home [facility] Comment on above: TELEPHONE ENCOUNTER Start: 01-13-2020 End: 01-13-2020 Home visit Harris Vargas [facility] Home [facility] Comment on above: SN HH PRN VISIT Start: 01-11-2020 End: 01-11-2020 Documentation procedure Daria Dumont [facility] Start: 01-11-2020 End: 01-11-2020 Home visit Jessenia Peñacullen [facility] Comment on above: HYDROPONICS WORKER HH ROUTINE Start: 01-10-2020 End: 01-10-2020 Home visit Leandro Sandra Sanchez [facility] Comment on above: FIRMWARE TEST ENGINEER ROUTINE VISIT Start: 01-09-2020 End: 01-09-2020 Home visit Jignesh Gilbert [facility] Comment on above: PT INITIAL EVALUATIO N SN HH OASIS START OF CARE Start: 01-08-2020 End: 01-08-2020 Admission to [facility] Start: 01-08-2020 End: 01-25-2020 Patient encounter procedure SOFÍA DUKES [facility] Start: 01-08-2020 End: 01-08-2020 Subsequent hospital visit by physician Sofía Dukes Work Phone: [facility] Orthoped[facility] Comment on above: S/P total knee arthr oplasty, right (Primary Dx); Primary osteoarthritis of right knee; Primary osteoarthritis of right knee Start: 01-04-2020 End: 01-04-2020 Office outpatient new 60 minutes Soífa Dukes Work Phone: [facility] Comment on above: Essential hypertensi on (Primary Dx); Primary osteoarthritis of right knee Start: 01-03-2020 End: 01-03-2020 Subsequent hospital visit by physician Sofía Dukes Work Phone: [facility] CT Scan Comment on above: Primary osteoarthrit is of right knee Start: 11-06-2019 End: 11-07-2019 Evaluation and management of inpatient JIM THORPE Anali [facility] Start: 11-06-2019 End: 11-07-2019 Evaluation and management of inpatient Anya Burton Chon Work Phone: [facility] Comment on above: Pneumonia of left lo wer lobe due to infectious organism (HCC) (Primary Dx); Influenza A; COPD exacerbation (HCC) Start: 10-30-2019 End: 10-30-2019 Office outpatient visit 15 minutes Palmer Givens Work Phone: [facility] Comment on above: Essential hypertensi on (Primary Dx); SOB (shortness of breath) on exertion; Leg edema Start: 10-26-2019 End: 10-26-2019 Patient encounter procedure Lena Hill Work Phone: [facility] Comment on above: Tricompartment osteo arthritis of right knee Start: 09-21-2019 End: 09-21-2019 Office outpatient visit 15 minutes Lena Hill Work Phone: [facility] Comment on above: Tricompartment osteo arthritis of right knee (Primary Dx) Start: 05-28-2019 End: 05-28-2019 Telephone encounter Palmer Givens Work Phone: [facility] Comment on above: Medication Managemen t Start: 05-26-2019 End: 05-26-2019 Refill Palmer Givens Work Phone: [facility] Start: 04-30-2019 End: 04-30-2019 Telephone encounter Palmer Givens Work Phone: [facility] Comment on above: Medication Managemen t Start: 04-27-2019 End: 04-27-2019 Refill Palmer Givens Work Phone: [facility] Start: 04-05-2019 End: 04-05-2019 Emergency department patient visit Bjorn Sin Work Phone: [facility] Emergency Department Start: 04-03-2019 End: 04-03-2019 Emergency department patient visit Kinsey Ignacio Work Phone: [facility] Emergency Department Comment on above: Acute exacerbation o f chronic obstructive pulmonary disease (COPD) (HCC) (Primary Dx) Start: 03-06-2019 End: 03-06-2019 Outside Orders Historical Provider [facility] Start: 03-04-2019 End: 03-04-2019 Emergency department patient visit [facility] Start: 03-01-2019 End: 03-01-2019 Outside Orders Prashanth Armenta Work Phone: [facility] Start: 02-19-2019 End: 02-19-2019 Telephone encounter Palmer Givens Work Phone: [facility] Comment on above: Medication Managemen t Start: 02-07-2019 End: 02-07-2019 Telephone encounter Palmer Givens Work Phone: [facility] Comment on above: Medication Managemen t Start: 02-03-2019 Emergency department patient visit [facility] Start: 11-24-2018 End: 11-24-2018 Telephone encounter Palmer Givens Work Phone: [facility] Comment on above: Medication Managemen t Start: 11-06-2018 End: 11-06-2018 Office outpatient visit 15 minutes Palmer Givens Work Phone: [facility] Comment on above: Chronic obstructive pulmonary disease, unspecified COPD type (Primary Dx) Start: 10-06-2018 End: 10-06-2018 Patient encounter procedure Sb Andino Work Phone: [facility] Start: 10-06-2018 End: 10-06-2018 Office outpatient visit 15 minutes Sb Andino Work Phone: [facility] Comment on above: Toe dislocation, lef t, subsequent encounter (Primary Dx); Arthritis of first metatarsophalangeal (MTP) joint of left foot; Acquired pes planovalgus of right foot; Arthritis of right foot Start: 10-05-2018 End: 10-05-2018 Documentation procedure Monica Rachel JeffJimmy [facility] Start: 09-15-2018 End: 09-15-2018 Office outpatient visit 15 minutes Sbkendra Wheatleyrachel Andino Work Phone: [facility] Comment on above: Toe dislocation, lef t, subsequent encounter (Primary Dx); Arthritis of first metatarsophalangeal (MTP) joint of left foot Start: 08-01-2018 End: 08-01-2018 Patient encounter procedure Monica Condon [facility] Start: 07-31-2018 End: 07-31-2018 Patient encounter procedure Rashaadliz Alford Liriano Work Phone: [facility] Comment on above: Knee pain Start: 07-31-2018 End: 07-31-2018 Office outpatient new 20 minutes Rashaad Alford Liriano Work Phone: [facility] Comment on above: Toe dislocation, lef t, subsequent encounter; Osteoarthritis of right knee, unspecified osteoarthritis type; Acquired pes planovalgus of right foot Start: 07-20-2018 Patient encounter procedure Sb Andino Facility:[facility] Start: 07-20-2018 End: 07-20-2018 Patient encounter procedure Sb Zenarachel Andino Work Phone: [facility] Start: 07-10-2018 End: 07-10-2018 Patient encounter Monica Rachel Taurus [facility] Start: 06-03-2018 Patient encounter procedure Memo Brar Facility:[facility] Start: 06-03-2018 End: 06-03-2018 Patient encounter Memo Brar Work Phone: [facility] Start: 05-31-2018 Patient encounter procedure Sb Andino Facility:[facility] Start: 05-15-2018 Patient encounter procedure Sb Andino Facility:[facility] Start: 05-15-2018 End: 05-15-2018 Patient encounter Sb Andino Work Phone: [facility] Start: 05-12-2018 Patient encounter procedure Memo Brar Facility:[facility] Start: 05-12-2018 End: 05-12-2018 Patient encounter Memo Mathur Maykel Work Phone: [facility] Start: 05-06-2018 Patient encounter procedure Memo Ramos Maykel Facility:[facility] Start: 05-06-2018 End: 05-06-2018 Patient encounter Memo Mathur Brar Work Phone: [facility] Start: 04-20-2018 Patient encounter procedure Sb Luther Exten Facility:[facility] Start: 04-20-2018 End: 04-20-2018 Patient encounter Sb Andino Work Phone: [facility] Start: 04-13-2018 Patient encounter procedure Sb Luther Exten Facility:[facility] Start: 04-08-2018 Patient encounter procedure Memo Rachel Maykel Facility:[facility] Start: 04-08-2018 End: 04-08-2018 Patient encounter Memo Mathur Maykel Work Phone: [facility] Start: 04-04-2018 Patient encounter Monica Mcdonough [facility] Start: 03-31-2018 Patient encounter procedure Sb Luther Exten Facility:[facility] Start: 03-31-2018 End: 03-31-2018 Patient encounter Sb Freitas Exten Work Phone: [facility] Start: 03-31-2018 End: 03-31-2018 Office consultation new/estab patient 40 min Paulino Rodrigues Work Phone: [facility] Start: 03-11-2018 Patient encounter procedure Memo Brar Facility:[facility] Start: 03-08-2018 Patient encounter procedure Paulino Rodrigues Facility:[facility] Start: 03-07-2018 Patient encounter procedure Paulino Rodrigues Facility:[facility] Start: 03-07-2018 End: 03-07-2018 Patient encounter Paulino Rodrigues Work Phone: [facility] Start: 03-07-2018 End: 03-07-2018 Office outpatient new 30 minutes Palmer Givens Work Phone: [facility] Start: 02-11-2018 Patient encounter procedure Memo Brar Facility:[facility] Start: 02-11-2018 End: 02-11-2018 Ambulatory Memo Brar Work Phone: [facility] Start: 01-14-2018 Patient encounter procedure Memo Brar Facility:[facility] Start: 01-14-2018 End: 01-14-2018 Ambulatory Mmeo Brar Work Phone: [facility] Start: 12-30-2017 Patient encounter procedure Memo Brar Facility:[facility] Start: 12-30-2017 End: 12-30-2017 Ambulatory Memo Brar Work Phone: [facility] Start: 08-06-2017 End: 08-06-2017 Emergency department patient visit Riaz Lopez Facility:[facility] Start: 05-05-2017 End: 05-05-2017 Ambulatory Coleen BrionesFrancesca Neal Work Phone: [facility] Procedures Date Procedure Procedure Detail Performing Clinician Start: 05-16-2025 Glucose measurement Carmen Charles MD Work Phone: Start: 05-16-2025 Glucose measurement Generic [facility] Work Phone: Start: 05-16-2025 Basic metabolic panel calcium total Dee Deborah Deyvi [employer] Work Phone: Start: 05-15-2025 Glucose measurement [facility] Work Phone: Start: 05-15-2025 Glucose measurement [facility] Work Phone: Start: 05-15-2025 Glucose measurement [facility] Work Phone: Start: 05-15-2025 Glucose measurement [facility] Work Phone: Start: 05-15-2025 Basic metabolic panel calcium total Dee Deborah Boydymour [employer] Work Phone: Start: 05-15-2025 Drug screen quantitative vancomycin Sorin Simons RPh,PharmD Start: 05-14-2025 Glucose measurement [facility] Work Phone: Start: 05-14-2025 Glucose measurement [facility] Work Phone: Start: 05-14-2025 Glucose measurement [facility] Work Phone: Start: 05-14-2025 Glucose measurement [facility] Work Phone: Start: 05-14-2025 Basic metabolic panel calcium total Dee Carnes [employer] Work Phone: Start: 05-13-2025 Glucose measurement Generic [...] Basic metabolic panel calcium total Dee Carnes [employer] Work Phone: Start: 05-13-2025 Drug screen quantitative vancomycin Olivia Caicedo [employer] Work Phone: Start: 05-12-2025 Glucose measurement [facility] Work Phone: Start: 05-12-2025 Glucose measurement [facility] Work Phone: Start: 05-12-2025 Drug tst prsmv instrmnt chem analyzers pr date Dee Carnes [employer] Work Phone: Start: 05-12-2025 Iadna s aureus methicillin resist amp probe tq Dee Carnes [employer] Work Phone: Start: 05-12-2025 Glucose measurement Generic [facility] Work Phone: Start: 05-12-2025 Glucose measurement Generic [facility] Work Phone: Start: 05-12-2025 Basic metabolic panel calcium total Dee Carens [employer] Work Phone: Start: 05-12-2025 Complete blood count with white cell differential, manual Dee Carnes [employer] Work Phone: Start: 05-12-2025 Cul bact xcpt [...] Basic metabolic panel calcium total Kj Cox [employer] Work Phone: Start: 04-04-2025 Complete blood count with white cell differential, manual Kj Cox [employer] Work Phone: Start: 04-04-2025 Gases blood ph [...] Start: 04-02-2025 Radiologic exam chest single view Maruy Garcia DO Work Phone: Start: 04-02-2025 COMBS TOP Maury navarro DO Work Phone: Start: 04-02-2025 RAINBOW DRAW Maury navarro DO Work Phone: Start: 04-02-2025 Complete blood count with white cell differential, manual Maury Garcia DO Work Phone: Start: 04-02-2025 Culture bacterial blood aerobic w/id isolates Maury Garcia DO Work Phone: Start: 04-02-2025 Red blood cell morphology Maury barlow [place] DO Work Phone: Start: 04-02-2025 Sedimentation rate [...] xcpt urine blood/stool aerobic isol Quyen Franco [employer] Work Phone: Start: 10-18-2024 Blood count complete auto&auto difrntl wbc Blanca Kerns MD Work Phone: Start: 10-18-2024 C-reactive protein Quyen Franco [employer] Work Phone: Start: 10-17-2024 Radex spine thoracic 2 views Antonietta Eagle fierro PA-C Work Phone: Start: 10-17-2024 Non-invas physiologic std extremity art 2 level Quyen Franco [employer] Work Phone: Start: 10-17-2024 Mri lower extrem oth/thn jt w/o contr matrl Quyen Franco [employer] Work Phone: Start: 10-17-2024 Hemoglobin glycosylated a1c Quyen Do mka [employer] Work Phone: Start: 10-16-2024 Mri spinal canal thoracic w/o contrast matrl Branden Cummings [employer] Work Phone: Start: 10-16-2024 Basic metabolic panel calcium total Jumana Fink [employer] Work Phone: Start: 10-15-2024 25 hydroxy includes fractions if performed Jumana Fink [employer] Work Phone: Start: 10-15-2024 Electrocardiogram Jose Lozano [...] Work Phone: Start: 07-03-2024 Glucose measurement Generic [facility] Work Phone: Start: 07-02-2024 Radiologic examination [...] Jose Lozano MD Work Phone: Start: 07-02-2024 COMBS TOP Jose Lozano MD Work Phone: Start: [...] Work Phone: Start: 08-01-2023 Creatinine blood Lindsey Zahng RPh,PharmD Start: 08-01-2023 Drug screen quantitative vancomycin Lindsey Zhang RPh,PharmD Start: 07-31-2023 Glucose measurement [facility] Work Phone: Start: 07-31-2023 Glucose measurement [facility] Work Phone: Start: 07-31-2023 Glucose measurement [facility] Work Phone: Start: 07-31-2023 Glucose measurement [facility] Work Phone: Start: 07-31-2023 Basic metabolic panel calcium total Carina Eller [employer] Work Phone: Start: 07-30-2023 Glucose measurement Generic [...] Start: 07-29-2023 Assay of lactate Uyen Gunn [employer] Work Phone: Start: 07-29-2023 Ct lower extremity w/contrast material Uyne Casiano [employer] Work Phone: Start: 07-29-2023 Basic metabolic panel calcium total Uyen Casiano [employer] Work Phone: Start: 07-29-2023 C-reactive protein Uyen miller [employer] Work Phone: Start: 07-29-2023 Culture bacterial blood aerobic w/id isolates Uyen Casiano [employer] Work Phone: Start: 07-29-2023 Debridement subcutaneous tissue 20 sq cm/< Cecilia Sabry Janet DPM Work Phone: Start: 07-29-2023 Cul bact xcpt urine blood/stool aerobic isol Cecilia Sabry Greeley DPM Work Phone: Start: 07-15-2023 Debridement subcutaneous tissue 20 sq cm/< Cecilia Sabry Janet DPM Work Phone: Start: 07-15-2023 Cul bact xcpt urine blood/stool aerobic isol Cecilia Sabry Greeley DPM Work Phone: Start: 07-08-2023 Debridement subcutaneous tissue 20 sq cm/< Cecilia Sabry Janet DPM Work Phone: Start: 07-01-2023 Debridement subcutaneous tissue 20 sq cm/< Cecilia Sabry Greeley DPM Work Phone: Start: 06-07-2023 Adult depression screening assessment Quyen Franco [employer] Work Phone: Start: 03-22-2023 Complete blood count [...] bacterial blood aerobic w/id isolates Isabel Tang [employer] Work Phone: Start: 03-17-2023 Prothrombin time Isabel [...] with white cell differential, automated Nuno Dumont [employer] Work Phone: Start: 02-26-2023 Comprehensive metabolic panel Nuno mcmillan [employer] Work Phone: Start: 01-18-2023 Debridement open wound 20 sq cm/< Ami L Hay [employer] Work Phone: Start: 12-28-2022 Whit skn sub grft t/a/l area/100sq cm /<1st 25 Ami L Hay [employer] Work Phone: Start: 12-28-2022 GA PURAPLY 1 SQ CM PERFORMABLE Ami L Hay [employer] Work Phone: Start: 12-21-2022 Whit skn sub grft t/a/l area/100sq cm /<1st 25 Ami L Hay [employer] Work Phone: Start: 12-21-2022 GA PURAPLY 1 SQ CM PERFORMABLE Ami L Hay [employer] Work Phone: Start: 12-08-2022 Ct head/brain w/o contrast material Nathan Hayden MD Work Phone: Start: 10-21-2022 DIAGNOSTIC UPPER ENDOSCOPY Antony Cantu ich DO Work Phone: Start: 04-21-2022 Dup-scan xtr veins complete bilateral study Moncho Joaquin MD Work Phone: Start: 04-21-2022 C-reactive protein Quyen Sammy [employer] Work Phone: Start: 04-21-2022 Red blood cell [...] Phone: Start: 04-20-2022 Blood ethanol measurement Carolina elizondo MD Work Phone: Start: 04-20-2022 End: 04-20-2022 [...] Phone: Start: 11-15-2021 B12/folate level Paul Osman [employer] Work Phone: Start: 11-15-2021 Complete blood count with white cell differential, automated Evens Mann PA-C Work Phone: Start: 11-15-2021 Renal function panel Evens Mann PA-C Work Phone: Start: 11-14-2021 Fibrinogen activity Paulino Moeller O Work Phone: Start: 11-14-2021 Radex foot complete minimum 3 views Paul Osman [employer] Work Phone: Start: 11-14-2021 Ct angiography chest w/contrast/noncontrast Paul Osman [employer] Work Phone: Start: 11-14-2021 C-reactive protein Paul Osman [employer] Work Phone: Start: 11-14-2021 Iaad ia hepatitis b surface antigen Evens Mann PA-C Work Phone: Start: 11-14-2021 Renal function panel Evens Mann PA-C Work Phone: Start: 11-13-2021 Dup-scan xtr veins complete bilateral study Evens Mann PA-C Work Phone: Start: 11-13-2021 Creatine kinase total [place] Johnathan PA- C Work Phone: Start: 11-13-2021 Rheumatoid factor qualitative Evens French macario PA-C Work Phone: Start: 11-13-2021 Comprehensive metabolic panel Nuno mott MD Work Phone: Start: 11-12-2021 Cultyp nuc acid amp prb cult/isolate ea orgnism Nuno Cantor MD Work Phone: Start: 11-12-2021 Ct abdomen & pelvis w/o contrast material Nuno Cantor MD Work Phone: Start: 11-12-2021 Sars-cov-2 detection by dna/rna Nuno Cantor MD Work Phone: Start: 11-12-2021 Urinalysis microscopic [...] Work Phone: Start: 12-03-[address] [facility] Start: 12-03-2020 Radiologic [...] Start: 08-01-2020 Radiologic exam chest single view [facility] Nigerian Work Phone: Start: 08-01-2020 Gases blood ph [...] Start: 07-09-2020 Glucose [Mass/volume] in Blood Venancio Quiros Work Phone: Start: 07-09-2020 APTT [...] 07-08-2020 Magnesium [Mass/volume] in Serum or Plasma eVnancio Harrisonasap Work Phone: Start: 07-08-2020 Troponin measurement Venancio Harrisonas ap Work Phone: Start: 07-08-2020 Radiography of keftix-jipfvs-isirsgx Venancio Quiros Work Phone: Start: 07-08-2020 Ethanol [...] 07-07-2020 Bacteria identified in Blood by Culture Kinsey Ignacio Work Phone: Start: 07-07-2020 Intubation Kinsey [...] RSV Vaccines (1 - 1-dose 75+ series) [facility] Start: 02-26-2033 Tetanus vaccination [facility] Start: 02-26-2033 Vaccination for diphtheria, pertussis, and tetanus Tetanus/Diphtheria/Pertus sis (3 - Td or Tdap) [facility] Start: 05-16-2026 eGFR Diabetes eGFR Diabetes [facility] Start: 04-05-2026 eGFR Diabetes eGFR Diabetes [facility] Start: 10-22-2025 Urine screening for protein eGFR Diabetes [facility] Start: 10-16-2025 Urine screening for protein eGFR Diabetes [facility] Start: 08-13-2025 Hemoglobin A1c measurement A1C [facility] Start: 07-01-2025 End: 07-01-2025 Admission to same day surgery center 07/01/2025 2:31 PM EST - 07/01/2025 5:10 PM EST Surgery [facility] [address] [place] [address] Sofía Dukes MD [address] [place] [address] Resection arthroplasty with antibiotic spacer right knee [facility] Comment on above: Resection arthroplasty with antibiotic s pacer right knee Start: 07-01-2025 End: 07-01-2025 Rmvl prosth tot knee prosth mma w/wo insj spacer ARTHROTOMY KNEE WITH SPACER INSERTION Abscess of knee, right History of total right knee replacement 07/01/2025 2:31 PM EST [facility] Start: 07-01-2025 Subsequent hospital visit by physician [facility] Start: 06-13-2025 End: 06-13-2025 Follow-up encounter 06/13/2025 4:00 PM EDT Follow-Up [facility] [address] [place] [address] Sofía Dukes MD [address] [place] [address] [facility] Start: 05-09-2025 End: 05-09-2025 Patient encounter procedure 05/09/2025 2:00 PM EDT Office Visit [facility] [address] [place] [address] Daniel Hammer MD [address] [address] [facility] Start: 04-22-2025 COVID-19 Vaccine ( season) COVID-19 Vaccine ( season) [facility] Start: 04-22-2025 COVID-19 Vaccine ( season) COVID-19 Vaccine ( season) [facility] Start: 04-22-2025 Influenza vaccination [facility] Start: 04-16-2025 Hemoglobin A1c measurement A1C [facility] Start: 01-18-2025 End: 01-18-2025 Patient encounter procedure 01/18/2025 1:30 PM EDT Office Visit [facility] [address] [place] [phone] Cecilia Gonzales, DPM [address] [place] [address] Discharge Disposition: Home [facility] Start: 01-04-2025 End: 01-04-2025 Patient encounter procedure 01/04/2025 2:00 PM EDT Office Visit [facility] [address] [place] [phone] Cecilia Gonzales, DPM [address] [place] [address] Discharge Disposition: Home [facility] Start: 01-02-2025 End: 01-02-2025 Patient encounter procedure 01/02/2025 2:20 PM EDT Office Visit [facility] [address] [place] [address], 3rd [place] [address] Ani Worley, [address] [address] Luis Daniel Cao III, [address] [place] [address] [facility] Start: 12-28-2024 End: 12-28-2024 Patient encounter procedure 12/28/2024 1:30 PM EDT Office Visit [facility] [address] [place] [phone] Cecilia Gonzales, DPM [address] [place] [address] Discharge Disposition: [facility] Start: 12-21-2024 End: 12-21-2024 Patient encounter procedure 12/21/2024 1:15 PM EDT Office Visit [facility] [address] [place] [phone] Cecilia Gonzales, DPM [address] [place] [address] Discharge Disposition: [facility] Start: 11-30-2024 End: 11-30-2024 Patient encounter procedure 11/30/2024 11:00 AM EDT Office Visit [facility] [address] [place] [phone] Cecilia Gonzales, DPM [address] [place] [address] Discharge Disposition: [facility] Start: 11-15-2024 End: 11-15-2024 Patient encounter procedure 11/15/2024 10:30 AM EDT Office Visit [facility] [address] [place] [phone] Sofía Garcia PA-C [address] [place] [address] [facility] Start: 11-09-2024 End: 11-09-2024 Patient encounter procedure 11/09/2024 1:15 PM EDT Office Visit [facility] [address] [place] [address] Cecilia Gonzales, DPM [address] [place] [address] Discharge Disposition: [facility] Start: 10-26-2024 End: 10-26-2024 Patient encounter procedure 10/26/2024 1:30 PM EST Office Visit [facility] [address] [place] [address] Cecilia Gonzales DPM [address] [place] [address] Discharge Disposition: Home [facility] Start: 08-10-2024 Screening for malignant neoplasm of colon [facility] Start: 06-07-2024 Depression screening using PHQ-9 (Patient Health Questionnaire 9) score [facility] Start: 04-22-2024 COVID-19 Vaccine () COVID-19 Vaccine () [facility] Start: 04-22-2024 Influenza vaccination [facility] Start: 03-22-2024 Potassium [Moles/volume] in Serum or Plasma POTASSIUM [facility] Start: 01-29-2024 Hemoglobin A1c measurement A1C [facility] Start: 01-11-2024 Hemoglobin A1c measurement A1C [facility] Start: 01-09-2024 End: 01-09-2024 Patient encounter procedure 01/09/2024 2:15 PM EDT Office Visit [facility] [address] [place] [phone] Jenise Gerardo DO [address] [place] [address] [facility] Start: 11-30-2023 Hemoglobin A1c measurement A1C [facility] Start: 09-09-2023 End: 09-09-2023 Patient encounter procedure 09/09/2023 2:15 PM EST Office Visit [facility] [address] [place] [phone] Cecilia Gonzales DPM [address] [place] [address] Discharge Disposition: [facility] Start: 09-02-2023 End: 09-02-2023 Patient encounter procedure 09/02/2023 2:15 PM EST Office Visit [facility] [address] [place] [address] Cecilia Gonzales, DPM [address] [place] [address] Discharge Disposition: Home [facility] Start: 08-30-2023 Hemoglobin A1c measurement A1C [facility] Start: 08-26-2023 End: 08-26-2023 Patient encounter procedure 08/26/2023 1:15 PM EST Office Visit [facility] [address] [facility] [place] [address] Cecilia Gonzales, DPM [address] [place] [address] Discharge Disposition: Home [facility] Start: 08-19-2023 End: 08-19-2023 [facility] Start: 07-22-2023 End: 07-22-2023 Patient encounter procedure 07/22/2023 11:00 AM EST Office Visit [facility] [address] [place] [address] Cecilia Gonzales, DPM [address] [place] [address] Discharge Disposition: Home [facility] Start: 07-15-2023 End: 07-15-2023 Patient encounter procedure 07/15/2023 7:30 AM EST Office Visit [facility] [address] [facility] [place] [address] Cecilia Gonzales, DPM [address] [place] [address] Discharge Disposition: [facility] Start: 07-08-2023 End: 07-08-2023 Patient encounter procedure 07/08/2023 1:30 PM EST Office Visit [facility] [address] [place] [address] Cecilia Gonzales, DPM [address] [place] [address] Discharge Disposition: [facility] Start: 06-24-2023 End: 06-24-2023 Patient encounter procedure 06/24/2023 8:45 AM EDT Office Visit [facility] [address] [place] [address] Cecilia Gonzales, DPM [address] [place] [address] Discharge Disposition: [facility] Start: 06-03-2023 End: 06-03-2023 Patient encounter procedure 06/03/2023 9:00 AM EDT Office Visit [facility] [address] [place] [address] Quyen Franco, [employer] [address] [place] [address] Discharge Disposition: [facility] Start: 05-02-2023 End: 05-02-2023 Patient encounter procedure [facility] Start: 04-26-2023 End: 04-26-2023 Clinical Support Encounter 04/26/2023 11:00 AM EDT Clinical Support Encounter [facility] [address] [place] [address] [facility] Start: 04-22-2023 COVID-19 Vaccine ( season) COVID-19 Vaccine ( season) [facility] Start: 04-22-2023 Influenza vaccination [facility] Start: 04-18-2023 End: 04-18-2023 Patient encounter procedure [facility] Start: 04-12-2023 End: 04-12-2023 Patient encounter procedure [facility] Start: 04-07-2023 End: 04-07-2024 Complete blood count with white cell differential, automated CBC, EDIF, PLATELET Lab Routine Left leg cellulitis Expected: 04/07/2023, Expires: 04/07/2024 [facility] Comment on above: Expected: 04/07/2023, Expires: Start: 04-07-2023 End: 04-07-2024 Comprehensive metabolic 2000 panel - Serum or Plasma COMPREHENSIVE METABOLIC PANEL Lab Routine Left leg cellulitis Expected: 04/07/2023, Expires: 04/07/2024 [facility] Comment on above: Expected: 04/07/2023, Expires: Start: 04-07-2023 End: 04-07-2023 Patient encounter procedure 04/07/2023 10:00 AM EDT Office Visit [facility] [address] [place] [address] Nathan Hayden MD [address] [place] [address] [facility] Start: 03-31-2023 End: 03-31-2024 Bacterial culture and sensitivity [facility] Comment on above: Expected: 03/31/2023, Expires: Start: 03-31-2023 End: 03-31-2024 SCREEN: MRSA ONLY, NARES (ISOLATION SCREEN) [facility] Comment on above: Expected: 03/31/2023, Expires: Start: 03-23-2023 End: 03-23-2023 Patient encounter procedure 03/23/2023 11:45 AM EDT Office Visit [facility] [address] [place] [address] Nathan Hayden MD [address] [place] [address] [facility] Start: 03-01-2023 End: 03-01-2023 Patient encounter procedure 03/01/2023 1:15 PM EDT Office Visit [facility] [address] [place] [address] Nj Ayala, [employer] [address] [phone] [facility] Start: 02-28-2023 End: 02-28-2023 ambulatory 02/28/2023 12:00 PM EDT Rehab Services Visit [facility] [address] [address] Nj Ayala, [employer] [address] [phone] Isa García PTA [facility] [place] Start: 02-23-2023 End: 02-23-2023 [facility] Start: 02-21-2023 End: 02-21-2023 Clinical Support Encounter 02/21/2023 8:45 AM EDT Clinical Support Encounter [facility] [address] [place] [address] Nj Ayala, [employer] [address] [phone] [facility] [facility] Start: 02-15-2023 End: 02-15-2023 ambulatory 02/15/2023 2:00 PM EDT Rehab Services Visit [facility] [address] [address] Nj Ayala, ORAL AND MAXILLOFACIAL SURGERY-RETURNED [employer]ORTER [address] [phone] Marcelina Tee, PT [facility] [place] Start: 02-15-2023 End: 02-15-2023 Patient encounter procedure 02/15/2023 1:15 PM EDT Office Visit [facility] [address] [place] [address] Nj Ayala, ORAL AND MAXILLOFACIAL SURGERY-RETURNED [employer]TER [address] [phone] [facility] Start: 02-08-2023 End: 02-08-2023 Patient encounter procedure 02/08/2023 Office Visit Chemotherapy Bridget Dahl MD [address] [place] [address] [facility] Start: 02-08-2023 End: 03-08-2023 [facility]R [facility] Comment on above: Expected: 02/08/2023, Expires: Start: 02-07-2023 Fasting lipid profile LIPID SCREENING [facility] Start: 02-07-2023 Lipid panel LIPID SCREENING [facility] Start: 02-01-2023 End: 02-01-2023 Patient encounter procedure 02/01/2023 Office Visit Wound Care Nj Ayala, ORAL AND MAXILLOFACIAL SURGERY-RETURN[employer]TER [address] [phone] [facility] Start: 02-01-2023 End: 02-01-2023 ambulatory 02/01/2023 Rehab Services Visit Physical Therapy Nj Ayala, ORAL AND MAXILLOFACIAL SURGERY-RETURNED [employer]TER [address] [phone] Isa García PTA [facility] [place] Start: 01-28-2023 End: 01-28-2023 Patient encounter procedure 01/28/2023 Office Visit Podiatry Kristi Bryan, DPMicheal [address], [id number] Start: 01-26-2023 End: 01-27-2024 HCV RNA HERMAN QUAL RFX TO QUANT HCV RNA HERMAN QUAL RFX TO QUANT Lab Routine Chronic hepatitis C without hepatic coma Expected: 01/26/2023, Expires: 01/27/2024 [facility] Comment on above: Expected: 01/26/2023, Expires: Start: 01-26-2023 End: 01-27-2024 Hepatic function 2000 panel - Serum or Plasma HEPATIC FUNCTION PANEL Lab Routine Chronic hepatitis C without hepatic coma Expected: 01/26/2023, Expires: 01/27/2024 [facility] Comment on above: Expected: 01/26/2023, Expires: Start: 01-26-2023 End: 01-27-2024 M TUBERCULOSIS BY QUANTIFERON, BLD M TUBERCULOSIS BY QUANTIFERON, BLD Lab Routine Healthcare maintenance Expected: 01/26/2023, Expires: 01/27/2024 [facility] Comment on above: Expected: 01/26/2023, Expires: Start: 01-26-2023 End: 01-27-2024 PROTIME-INR PROTIME-INR Lab Routine Chronic hepatitis C without hepatic coma Cirrhosis of liver without ascites, unspecified hepatic cirrhosis type Expected: 01/26/2023, Expires: 01/27/2024 [facility] Comment on above: Expected: 01/26/2023, Expires: Start: 01-25-2023 End: 01-25-2023 Patient encounter procedure 01/25/2023 Office Visit Wound Care Nj Ayala ORAL AND MAXILLOFACIAL SURGERY[employer] [address] [address] [facility] Start: 01-25-2023 End: 01-25-2023 ambulatory 01/25/2023 Rehab Services Visit Physical Therapy Nj Ayala, ORAL AND MAXILLOFACIAL SURGERY-RETURN[employer]TER [address] [address] Isa García PTA [facility] [place] Start: 01-12-2023 End: 01-12-2023 Patient encounter procedure 01/12/2023 Office Visit Infectious Diseases Nathan Hayden MD [address] [place] [address] [facility] Start: 01-04-2023 End: 01-04-2023 Patient encounter procedure 01/04/2023 Office Visit Wound Care Nj Ayala, ORAL AND MAXILLOFACIAL SURGERY-RETURNED [employer]TER [address] [place] [address] [facility] [place] [facility] Start: 01-04-2023 End: 01-04-2023 ambulatory 01/04/2023 Rehab Services Visit Physical Therapy Nj Ayala, ORAL AND MAXILLOFACIAL SURGERY-RETURN[employer]TER [address] [place] [address] Isa García PTA [facility] [place] Start: 12-28-2022 End: 12-28-2022 Patient encounter procedure 12/28/2022 Office Visit Wound Care Nj Ayala, ORAL AND MAXILLOFACIAL SURGERY-RETURNED [employer]TER [address] [place] [address] [facility] Start: 12-28-2022 End: 12-28-2022 ambulatory 12/28/2022 Rehab Services Visit Physical Therapy Nj Ayala, ORAL AND MAXILLOFACIAL SURGERY-RETURNED [employer]TER [address] [place] [address] Isa García PTA [facility] [place] Start: 12-21-2022 End: 12-21-2022 Patient encounter procedure 12/21/2022 Office Visit Wound Care Nj Ayala, ORAL AND MAXILLOFACIAL SURGERY-RETURNED [employer]TER [address] [place] [address] [facility] [place] [facility] Start: 12-14-2022 End: 12-14-2022 Patient encounter procedure 12/14/2022 Office Visit Wound Care Nj Ayala, ORAL AND MAXILLOFACIAL SURGERY-RETURNED [employer]TER [address] [place] [address] [facility] [place] [facility] Start: 12-14-2022 End: 12-14-2022 ambulatory 12/14/2022 Rehab Services Visit Physical Therapy Nj Ayala, ORAL AND MAXILLOFACIAL SURGERY[employer]TER [address] [place] [address] Marcelina Tee, PT [facility] [place] Start: 12-08-2022 End: 12-08-2022 Patient encounter procedure 12/08/2022 Office Visit Infectious Diseases Nathan Hayden MD [address] [place] [address] [facility] Disease Start: 12-07-2022 End: 12-07-2022 Patient encounter procedure 12/07/2022 Office Visit Chemotherapy Bridget Dahl MD [address] [place] [address] [facility] Start: 12-07-2022 End: 12-07-2022 Patient encounter procedure 12/07/2022 Office Visit Wound Care Nj Ayala Sheryl, ORAL AND MAXILLOFACIAL SURGERY-RETURN[employer]TER [address] [place] [address] [facility] Start: 11-30-2022 End: 11-30-2022 Clinical Support Encounter 11/30/2022 Clinical Support Encounter Wound Care Nj Ayala Sheryl, ORAL AND MAXILLOFACIAL SURGERY-RETURN[employer]TER [address] [place] [address] [phone] [facility] Start: 11-25-2022 End: 11-25-2022 Patient encounter procedure 11/25/2022 Office Visit Chemotherapy Bridget Dahl MD [address] [place] [address] [facility] Start: 11-25-2022 End: 11-26-2023 ISSAC MULTIPLEX SCRN WITH REFLEX ISSAC MULTIPLEX SCRN WITH REFLEX Lab Routine Pancytopenia Thrombocytopenia Leukopenia, unspecified type Microcytic hypochromic anemia Hepatosplenomegaly Expected: 11/25/2022, Expires: 11/26/2023 [facility] Comment on above: Expected: 11/25/2022, Expires: Start: 11-25-2022 End: 11-26-2023 Cyanocobalamin vitamin b-12 VITAMIN B12 Lab Routine Pancytopenia Thrombocytopenia Leukopenia, unspecified type Microcytic hypochromic anemia Hepatosplenomegaly Expected: 11/25/2022, Expires: 11/26/2023 [facility] Comment on above: Expected: 11/25/2022, Expires: Start: 11-25-2022 End: 11-26-2023 DSDNA ANTIBODY DSDNA ANTIBODY Lab Routine Pancytopenia Thrombocytopenia Leukopenia, unspecified type Microcytic hypochromic anemia Hepatosplenomegaly Expected: 11/25/2022, Expires: 11/26/2023 [facility] Comment on above: Expected: 11/25/2022, Expires: Start: 11-25-2022 End: 11-26-2023 Ferritin [Mass/volume] in Serum or Plasma FERRITIN Lab Routine Pancytopenia Thrombocytopenia Leukopenia, unspecified type Microcytic hypochromic anemia Hepatosplenomegaly Expected: 11/25/2022, Expires: 11/26/2023 [facility] Comment on above: Expected: 11/25/2022, Expires: Start: 11-25-2022 End: 11-26-2023 Folate [Mass/volume] in Serum or Plasma FOLATE, SERUM Lab Routine Pancytopenia Thrombocytopenia Leukopenia, unspecified type Microcytic hypochromic anemia Hepatosplenomegaly Expected: 11/25/2022, Expires: 11/26/2023 [facility] Comment on above: Expected: 11/25/2022, Expires: Start: 11-25-2022 End: 11-26-2023 IRON/IRON BINDING/TRANSFERRIN IRON/IRON BINDING/TRANSFERRIN Lab Routine Pancytopenia Thrombocytopenia Leukopenia, unspecified type Microcytic hypochromic anemia Hepatosplenomegaly Expected: 11/25/2022, Expires: 11/26/2023 [facility] Comment on above: Expected: 11/25/2022, Expires: Start: 11-25-2022 End: 11-26-2023 PLATELET AB ID PANEL PLATELET AB ID PANEL Lab Routine Pancytopenia Thrombocytopenia Leukopenia, unspecified type Microcytic hypochromic anemia Hepatosplenomegaly Expected: 11/25/2022, Expires: 11/26/2023 [facility] Comment on above: Expected: 11/25/2022, Expires: Start: 11-25-2022 End: 11-26-2023 REQUEST FOR MISC LAB SENDOUT REQUEST FOR MISC LAB SENDOUT Lab Routine Pancytopenia Thrombocytopenia Leukopenia, unspecified type Microcytic hypochromic anemia Hepatosplenomegaly Expected: 11/25/2022 (Approximate), Expires: 11/26/2023 [facility] Comment on above: Expected: 11/25/2022 (Approximate), Expi res: 11/26/2023 Start: 11-25-2022 End: 11-26-2023 RETICULOCYTES RETICULOCYTES Lab Routine Pancytopenia Thrombocytopenia Leukopenia, unspecified type Microcytic hypochromic anemia Hepatosplenomegaly Expected: 11/25/2022, Expires: 11/26/2023 [facility] Comment on above: Expected: 11/25/2022, Expires: Start: 11-25-2022 End: 11-26-2023 SOLUBLE TRANSFERRIN RECEPTOR SOLUBLE TRANSFERRIN RECEPTOR Lab Routine Pancytopenia Thrombocytopenia Leukopenia, unspecified type Microcytic hypochromic anemia Hepatosplenomegaly Expected: 11/25/2022, Expires: 11/26/2023 [facility] Comment on above: Expected: 11/25/2022, Expires: Start: 11-24-2022 End: 11-24-2022 Patient encounter procedure 11/24/2022 Office Visit Infectious Diseases Nathan Hayden MD [address] [place] [address] [facility] Start: 11-23-2022 End: 11-23-2022 Patient encounter procedure 11/23/2022 Office Visit Wound Care Nj Ayala, ORAL AND MAXILLOFACIAL SURGERY-[employer] [address] [place] [address] [facility] Start: 11-15-2022 Potassium [Moles/volume] in Serum or Plasma POTASSIUM [facility] Start: 11-09-2022 End: 11-09-2022 Patient encounter procedure 11/09/2022 Office Visit Wound Care Jamie Nj Sheryl, ORAL AND MAXILLOFACIAL SURGERY-[employer] [address] [place] [phone] [facility] Start: 10-27-2022 End: 10-27-2022 Patient encounter procedure 10/27/2022 Office Visit Infectious Diseases Nathan Hayden MD [address] [place] [address] [facility] Start: 10-21-2022 End: 10-21-2022 Patient encounter procedure 10/21/2022 Appointment Endoscopy Erick Snow, Antony Morgan, DO [address] [place] [address] [facility] Start: 09-30-2022 End: 09-30-2022 Patient encounter procedure 09/30/2022 Office Visit Podiatry Felipe Molina DPM [address] [place] [address] [facility] Start: 09-29-2022 End: 09-29-2023 Complete blood count with white cell differential, automated CBC, EDIF, PLATELET Lab Routine Chronic hepatitis C without hepatic coma Expected: 09/29/2022, Expires: 09/29/2023 [facility] Comment on above: Expected: 09/29/2022, Expires: Start: 09-29-2022 End: 09-29-2023 Comprehensive metabolic 2000 panel - Serum or Plasma COMPREHENSIVE METABOLIC PANEL Lab Routine Chronic hepatitis C without hepatic coma Expected: 09/29/2022, Expires: 09/29/2023 [facility] Comment on above: Expected: 09/29/2022, Expires: Start: 09-29-2022 End: 09-29-2023 HBV REAL-TIME PCR, QUANT HBV REAL-TIME PCR, QUANT Lab Routine Chronic hepatitis C without hepatic coma Hepatitis B core antibody positive Expected: 09/29/2022, Expires: 09/29/2023 [facility] Comment on above: Expected: 09/29/2022, Expires: Start: 09-29-2022 End: 09-29-2023 HCV RNA HERMAN QUAL RFX TO QUANT HCV RNA HERMAN QUAL RFX TO QUANT Lab Routine Chronic hepatitis C without hepatic coma Expected: 09/29/2022, Expires: 09/29/2023 [facility] Comment on above: Expected: 09/29/2022, Expires: Start: 09-23-2022 End: 09-23-2022 Patient encounter procedure 09/23/2022 Appointment Endoscopy Antony Suarez Jr., DO [address] [place] [address], [place] [address] [facility] Start: 09-15-2022 End: 09-15-2022 Patient encounter procedure 09/15/2022 Office Visit Infectious Diseases Nathan Hayden MD [address] [place] [address] [facility] Start: 08-26-2022 End: 08-26-2022 Patient encounter procedure 08/26/2022 Office Visit Gastroenterology Antony Suarez Jr., DO [address] [place] [address], [place] [address] [facility] Start: 08-26-2022 End: 08-26-2023 ISSAC MULTIPLEX SCRN WITH REFLEX ISSAC MULTIPLEX SCRN WITH REFLEX Lab Routine Cirrhosis of liver without ascites, unspecified hepatic cirrhosis type Chronic hepatitis C without hepatic coma Expected: 08/26/2022, Expires: 08/26/2023 [facility] Comment on above: Expected: 08/26/2022, Expires: Start: 08-26-2022 End: 08-26-2023 ANCA INIT SCRN (ANCA, PR3AB, MPO) ANCA INIT SCRN (ANCA, PR3AB, MPO) Lab Routine Cirrhosis of liver without ascites, unspecified hepatic cirrhosis type Chronic hepatitis C without hepatic coma Expected: 08/26/2022, Expires: 08/26/2023 [facility] Comment on above: Expected: 08/26/2022, Expires: 4 Start: 08-26-2022 End: 08-26-2023 Angiotensin converting enzyme [Enzymatic activity/volume] in Serum or Plasma ANGIOTENSIN CONVERTING ENZYME Lab Routine Cirrhosis of liver without ascites, unspecified hepatic cirrhosis type Chronic hepatitis C without hepatic coma Expected: 08/26/2022, Expires: 08/26/2023 [facility] Comment on above: Expected: 08/26/2022, Expires: Start: 08-26-2022 End: 08-26-2023 ANTI MITOCHONDRIAL ANTIBODY ANTI MITOCHONDRIAL ANTIBODY Lab Routine Cirrhosis of liver without ascites, unspecified hepatic cirrhosis type Chronic hepatitis C without hepatic coma Expected: 08/26/2022, Expires: 08/26/2023 [facility] Comment on above: Expected: 08/26/2022, Expires: 4 Start: 08-26-2022 End: 08-26-2023 CERULOPLASMIN CERULOPLASMIN Lab Routine Cirrhosis of liver without ascites, unspecified hepatic cirrhosis type Chronic hepatitis C without hepatic coma Expected: 08/26/2022, Expires: 08/26/2023 [facility] Comment on above: Expected: 08/26/2022, Expires: 4 Start: 08-26-2022 End: 08-26-2023 CMV IGM AB CMV IGM AB Lab Routine Cirrhosis of liver without ascites, unspecified hepatic cirrhosis type Chronic hepatitis C without hepatic coma Expected: 08/26/2022, Expires: 08/26/2023 [facility] Comment on above: Expected: 08/26/2022, Expires: 4 Start: 08-26-2022 End: 08-26-2023 COPPER COPPER Lab Routine Cirrhosis of liver without ascites, unspecified hepatic cirrhosis type Chronic hepatitis C without hepatic coma Expected: 08/26/2022, Expires: 08/26/2023 [facility] Comment on above: Expected: 08/26/2022, Expires: 4 Start: 08-26-2022 End: 08-26-2023 DIAGNOSTIC UPPER ENDOSCOPY DIAGNOSTIC UPPER ENDOSCOPY GI/Bronch Routine Cirrhosis of liver without ascites, unspecified hepatic cirrhosis type Chronic hepatitis C without hepatic coma Expected: 08/26/2022, Expires: 08/26/2023 [facility] Comment on above: Expected: 08/26/2022, Expires: 4 Start: 08-26-2022 End: 08-26-2023 EBV ACUTE INFECTION ANTIBODIES PROFILE EBV ACUTE INFECTION ANTIBODIES PROFILE Lab Routine Cirrhosis of liver without ascites, unspecified hepatic cirrhosis type Chronic hepatitis C without hepatic coma Expected: 08/26/2022, Expires: 08/26/2023 [facility] Comment on above: Expected: 08/26/2022, Expires: Start: 08-26-2022 End: 08-26-2023 Protein electrophoresis PROTEIN ELECTROPHORESIS Lab Routine Cirrhosis of liver without ascites, unspecified hepatic cirrhosis type Chronic hepatitis C without hepatic coma Expected: 08/26/2022, Expires: 08/26/2023 [facility] Comment on above: Expected: 08/26/2022, Expires: Start: 08-26-2022 End: 08-26-2023 REQUEST FOR MISC LAB SENDOUT REQUEST FOR MISC LAB SENDOUT Lab Routine Cirrhosis of liver without ascites, unspecified hepatic cirrhosis type Chronic hepatitis C without hepatic coma Expected: 08/26/2022, Expires: 08/26/2023 [facility] Comment on above: Expected: 08/26/2022, Expires: 4 Start: 08-11-2022 End: 08-11-2022 Patient encounter procedure 08/11/2022 Office Visit Gastroenterology Erick Snow, Antony Morgan, [address] [place] [address] [facility] Start: 07-07-2022 End: 07-07-2023 Complete blood count with white cell differential, automated CBC, EDIF, PLATELET Lab Routine Chronic hepatitis C without hepatic coma Expected: 07/07/2022, Expires: 07/07/2023 [facility] Comment on above: Expected: 07/07/2022, Expires: 3 Start: 07-07-2022 End: 07-07-2023 Comprehensive metabolic 2000 panel - Serum or Plasma COMPREHENSIVE METABOLIC PANEL Lab Routine Chronic hepatitis C without hepatic coma Expected: 07/07/2022, Expires: 07/07/2023 [facility] Comment on above: Expected: 07/07/2022, Expires: 3 Start: 07-07-2022 End: 07-07-2023 HBV REAL-TIME PCR, QUANT HBV REAL-TIME PCR, QUANT Lab Routine Hepatitis B core antibody positive Expected: 07/07/2022, Expires: 07/07/2023 [facility] Comment on above: Expected: 07/07/2022, Expires: 3 Start: 04-22-2022 Influenza vaccination [facility] Start: 07-07-2021 Microalbumin measurement, urine, quantitative Urine Microalbumin [facility] Start: 07-07-2021 Urine screening for protein Urine Microalbumin [facility] Start: 05-12-2021 End: 05-12-2021 Patient encounter procedure 05/12/2021 Office Visit Podiatry Felipe Molina DPM [address] [place] [address] [facility] Start: 04-22-2021 Influenza vaccination [facility] Start: 04-14-2021 End: 04-14-2021 Patient encounter procedure 04/14/2021 Office Visit Podiatry Felipe Molina DPM [address] [place] [address] [facility] Start: 01-04-2021 HbA1c (Bld) [Mass fraction] A1C [facility] Start: 01-04-2021 Hemoglobin A1c measurement A1C [facility] Start: 11-05-2020 Creatinine monitoring Creatinine monitoring [facility] [place] Start: 11-05-2020 Potassium monitoring Potassium monitoring [facility] [place] Start: 08-21-2020 End: 08-21-2020 Office Visit 08/21/2020 Office Visit Cardiology Gene Rebolledo MD [address] [place] [address] [phone] [facility] Start: 07-23-2020 End: 07-23-2020 Telemedicine 07/23/2020 Telemedicine Cardiology Merry Medrano CNP [address] [place] [address] [phone] [facility] Start: 07-22-2020 End: 07-22-2020 Office Visit 07/22/2020 Office Visit Family Medicine Palmer Givens PA [address] [place] [phone] [facility] Start: 07-14-2020 End: 07-14-2021 Complete blood count with white cell differential, automated CBC, EDIF, PLATELET Lab Routine Anemia, unspecified type Thrombocytopenia Expected: 07/14/2020, Expires: 07/14/2021 [facility] Comment on above: Expected: 07/14/2020, Expires: 1 Start: 07-14-2020 End: 07-14-2021 Comprehensive metabolic 2000 panel COMPREHENSIVE METABOLIC PANEL Lab Routine Chronic obstructive pulmonary disease with acute exacerbation Acute respiratory failure, unspecified whether with hypoxia or hypercapnia Atrial fibrillation, unspecified type Anemia, unspecified type Thrombocytopenia Elevated troponin Elevated brain natriuretic peptide (BNP) level Marijuana use Expected: 07/14/2020, Expires: 07/14/2021 [facility] Comment on above: Expected: 07/14/2020, Expires: 1 Start: 07-05-2020 HbA1c (Bld) [Mass fraction] A1C [facility] Start: 04-22-2020 Influenza vaccination INFLUENZA VACCINE (#1) [facility] Start: 04-22-2020 Influenza vaccination given [facility] Start: 02-06-2020 End: 02-06-2020 Follow-Up 02/06/2020 Follow-Up Sports Medicine Sofía Dukes MD [address] [place] [address] [phone] [facility] Start: 01-25-2020 End: 01-25-2020 Appointment [facility] Start: 01-25-2020 End: 01-25-2020 Home Care Visit 01/25/2020 Home Care Visit Home Health Services Harris Vargas RN [facility] Start: 01-24-2020 End: 01-24-2020 Home Care Visit 01/24/2020 Home Care Visit Home Health Services Jignesh Gilbert, PT [facility] Start: 01-23-2020 End: 01-23-2020 Follow-Up 01/23/2020 Follow-Up Sports Medicine Sofía Dukes MD [address] [place] [address] [phone] [facility] Start: 01-22-2020 End: 01-22-2020 Home Care Visit [facility] Start: 01-21-2020 End: 01-21-2020 Home Care Visit 01/21/2020 Home Care Visit Home Health Services Nisa Tavares, KELLY [facility] Start: 01-18-2020 End: 01-18-2020 Home Care Visit [facility] Start: 01-17-2020 End: 01-17-2020 Home Care Visit [facility] Start: 01-15-2020 End: 01-15-2020 Home Care Visit [facility] Start: 01-14-2020 End: 01-14-2020 Home Care Visit [facility] Start: 01-11-2020 End: 01-11-2020 Home Care Visit 01/11/2020 Home Care Visit Home Health Services Jessenia Salazar LPN [facility] Start: 01-10-2020 End: 01-11-2020 Home Care Visit [facility] Start: 01-09-2020 End: 01-09-2020 Appointment 01/09/2020 Appointment Home Health Services Pinky Brown RN [facility] Start: 01-09-2020 End: 01-09-2020 Home Care Visit 01/09/2020 Home Care Visit Home Health Services Jignesh Gilbert, PT [facility] Start: 01-08-2020 End: 01-08-2020 Hospital Encounter [facility] Comment on above: Primary osteoarthritis of right knee Right Total Knee Rep lacement Robotic Start: 01-05-2020 End: 01-05-2020 Office Visit 01/05/2020 Office Visit Lab [place]ía [place] [address] [phone] [facility] Start: 01-04-2020 End: 01-04-2020 Surgical Consult [facility] Start: 12-07-2019 End: 12-07-2019 Treatment 12/07/2019 Treatment Rehabilitation Lena Hill, [employer] [address] [place] [address] [phone] Do Parrish, PT [facility] Start: 12-06-2019 End: 12-06-2019 Hospital [facility] Comment on above: Primary osteoarthritis of right knee Right Total Knee Rep lacement Robotic Start: 12-05-2019 End: 12-05-2019 Treatment 12/05/2019 Treatment Rehabilitation Lena Hill [employer] [address] [place] [address] [phone] Danisha Courtney, [facility] Start: 11-30-2019 End: 11-30-2019 Treatment 11/30/2019 Treatment Rehabilitation Lena Hill [employer] [address] [place] [address] [phone] Do Parrish, PT [facility] Start: 11-28-2019 End: 11-28-2019 Treatment 11/28/2019 Treatment Rehabilitation Lena Hill, [employer] [address] [place] [address] Danisha Courtney, [facility] Start: 11-23-2019 End: 11-23-2019 Treatment 11/23/2019 Treatment Rehabilitation Lena Hill, [employer] [address] [place] [address] [place] [address] Danisha Courtney [facility] Start: 11-21-2019 End: 11-21-2019 Treatment 11/21/2019 Treatment Rehabilitation Lena Hill, [employer] [address] [place] [place] [address] [place] [address] [phone] Danisha Courtney PTA [facility] Start: 11-20-2019 End: 11-20-2019 Surgical Consult 11/20/2019 Surgical Consult Sports Medicine Sofía [place] [address] [phone] [facility] Start: 11-16-2019 End: 11-16-2019 Treatment 11/16/2019 Treatment Rehabilitation Lena Hill CNP [address] [place] [address] [place] [address] [phone] Do Parrish, PT [facility] Start: 11-14-2019 End: 11-14-2019 Treatment 11/14/2019 Treatment Rehabilitation Lena Hill CNP [address] [place] [address] [place] [address] [phone] Danisha Courtney [facility] Start: 11-13-2019 End: 11-13-2019 Office Visit [facility] Preadmission Testing Start: 11-09-2019 End: 11-09-2019 Treatment 11/09/2019 Treatment Rehabilitation Lena Hill CNP [address] [place] [address] [place] [address] [phone] Do Parrish, PT [facility] Start: 11-07-2019 End: 11-07-2019 Treatment 11/07/2019 Treatment Rehabilitation Lena Hill, [employer] [address] [place] [address] [place] [address] [phone] Christa Sanchez, PT [facility] Start: 11-06-2019 End: 11-06-2019 Office Visit 11/06/2019 Office Visit Cardiology Sofía Dukes MD [address] [place] [address] [phone] Jeff Minor MD [address] [place] [address] [phone] [facility] Start: 11-02-2019 End: 11-02-2019 Treatment 11/02/2019 Treatment Rehabilitation Lena Hill, [employer] [address] [facility] [address] [place] [address] [phone] Deborah Phillip, [facility] Start: 10-31-2019 End: 10-31-2019 Treatment 10/31/2019 Treatment Rehabilitation Lena Hill, [employer] [address] [facility] 2 [place] [address] Minesh Dejesus [facility] Start: 10-30-2019 End: 10-29-2020 Diagnostic radiography of chest, combined PA and lateral XR CHEST PA AND LATERAL Imaging Routine SOB (shortness of breath) on exertion Expected: 10/30/2019, Expires: 10/29/2020 [facility] Comment on above: Expected: 10/30/2019, Expires: 1 Start: 04-22-2019 Influenza vaccination [facility] Start: 04-22-2019 Influenza vaccination given SEQUENTIAL INFLUENZA VACCINE (#1) [facility] Start: 02-07-2019 Potassium [Moles/Vol] POTASSIUM [facility] Start: 02-07-2019 Prostate specific antigen measurement PROSTATE CANCER SCREENING DISCUSSION [facility] Start: 10-06-2018 End: 10-06-2018 Office Visit 10/06/2018 Office Visit Orthopedic Surgery Sb Andino MD [facility] [place] [address] [phone] [facility] Start: 08-08-2018 End: 08-08-2018 Ambulatory 08/08/2018 Office Visit Orthopedic Surgery Roe Davey MD [address] [facility] [address] [place] [address] [phone] [facility] Start: 08-04-2018 End: 08-04-2018 Ambulatory 08/04/2018 Office Visit Orthopedic Surgery Sb Andino MD [address] [facility] [place] [address] [phone] [facility] Start: 06-20-2018 End: 06-20-2018 Ambulatory 06/20/2018 Office Visit Sports Medicine Daniel Hammer MD [address] [place] [address] [phone] [facility] Start: 06-06-2018 End: 06-06-2018 Ambulatory 06/06/2018 Office Visit Sports Medicine Daniel Hammer MD [address] [place] [address] [phone] [facility] Start: 05-15-2018 End: 05-15-2018 Ambulatory 05/15/2018 Office Visit Orthopedic Surgery Sb Andino MD [address] [place] [address] [phone] [facility] Start: 05-02-2018 End: 05-02-2018 Ambulatory 05/02/2018 Office Visit Sports Medicine Daniel Hammer MD [address] [place] [address] [phone] [facility] Start: 04-22-2018 Influenza vaccination [facility] Start: 04-22-2018 Influenza vaccination given SEQUENTIAL INFLUENZA VACCINE (#1) [facility] Start: 04-13-2018 Ambulatory 04/13/2018 Hospital Encounter Sb Andino MD [address] [facility] [place] [address] [phone] [facility] Start: 04-11-2018 End: 04-11-2018 Ambulatory 04/11/2018 Office Visit Sports Medicine Paulino Rodrigues MD [address] [place] [address] [phone] Daniel Hammer MD [address] [place] [address] [phone] [facility] Start: 11-02-2017 HbA1c (Bld) [Mass fraction] A1C [facility] Start: 04-22-2017 Influenza vaccination SEQUENTIAL INFLUENZA VACCINE (#1) [facility] Work Phone: Start: 2016 Administration of herpes zoster vaccine Zoster Vaccines (1 of 2) [facility] Start: 2016 Colon cancer screen colonoscopy Colon cancer screen colonoscopy [place] Start: 2016 Colonoscopy [facility] Start: 2016 Protein mass conc COLON CANCER SCREENING DISCUSSION [facility] Start: 2016 RSV Vaccines (1 - Risk 50-74 years 1-dose series) RSV Vaccines (1 - Risk 50-74 years 1-dose series) [facility] Start: 2016 Screening for malignant neoplasm of colon [facility] Start: 2016 Shingles Vaccine (1 of 2) Shingles Vaccine (1 of 2) [place] Start: 2016 Zoster vaccine hzv live for subcutaneous use ZOSTER (SHINGLES) VACCINE (1 of 2) [facility] Start: 09-15-2015 Pneumococcal Vaccine: 50+ Years (2 of 2 - PCV) Pneumococcal Vaccine: 50+ Years (2 of 2 - PCV) [facility] Start: 09-15-2015 Pneumococcal Vaccine: Age 50+ (2 of 2 - PCV) Pneumococcal Vaccine: Age 50+ (2 of 2 - PCV) [facility] Start: 09-15-2015 Pneumococcal Vaccine: Ped or At-Risk (2 - PCV) Pneumococcal Vaccine: Ped or At-Risk (2 - PCV) [facility] Start: 09-15-2015 Pneumococcal Vaccine: Ped or At-Risk (2 of 2 - PCV) Pneumococcal Vaccine: Ped or At-Risk (2 of 2 - PCV) [facility] Start: 2011 Colonoscopy COLORECTAL CANCER SCREENING DISCUSSION [facility] Start: 2011 Screening for malignant neoplasm of colon COLORECTAL CANCER SCREENING DISCUSSION [facility] Start: 2006 Diabetes screen Diabetes screen [place] Start: 2006 Lipid screen Lipid screen [place] Start: 1985 DTaP/Tdap/Td vaccine (1 - Tdap) DTaP/Tdap/Td vaccine (1 - Tdap) [facility] Start: 1985 Hepatitis A immunization Hepatitis A Vaccines (1 of 2 - Risk 2-dose series) [facility] Start: 1985 Hepatitis B vaccination Hepatitis B Vaccines (1 of 3 - 19+ 3-dose series) [facility] Start: 1985 Third diphtheria, tetanus and acellular pertussis (DTaP) vaccination TDAP (ADULT) [facility] Start: 1984 Hepatitis C antibody, confirmatory test Hepatitis C Scre[facility] Start: 1984 Hepatitis C screening Hepatitis C Screening [facility] Start: 1984 Tetanus vaccination TETANUS [facility] Start: 1982 COVID-19 Vaccine (1 of 2) COVID-19 Vaccine (1 of 2) [facility] Start: 1982 COVID-19 Vaccine (1) COVID-19 Vaccine (1) [facility] Start: 1981 HIV screen HIV screen [place] Start: 1981 HIV screening [facility] Start: 1979 HIV screening HIV SCREENING DISCUSSION [facility] Start: 1978 Adolescent depression screening assessment Depression Screening (PHQ9) [facility] Start: 1978 COVID-19 Vaccine (1) COVID-19 [facility]ine ([facility]) [facility] Start: 1978 Depression screening using PHQ-9 (Patient Health Questionnaire 9) score [facility] Start: 1976 Albumin DL <= 20 mg/L (U) [Mass/Vol] Urine Microalbumin [facility] Start: 1976 Diabetic foot examination [facility] Start: 1976 Glaucoma screening Diabetic Eye Exam [facility] Start: 1976 Ophthalmic examination and evaluation Ophthalmology Exam [facility] Start: 1976 Urine screening for protein Urine (micro)albumin/creatinine ratio - Diabetes [facility] Start: 1972 Pneumococcal 0-64 years Vaccine (1 of 1 - PPSV23) Pneumococcal 0-64 years Vaccine (1 of 1 - PPSV23) [facility] [place], [place] Start: 1972 Pneumococcal Vaccine: Ped or At-Risk (1 of 2 - PPSV23) Pneumococcal Vaccine: Ped or At-Risk (1 of 2 - PPSV23) [facility] Start: 1971 COVID-19 VACCINE (1) COVID-19 VACCINE (1) [facility] Start: 1969 History and physical examination, annual for health maintenance Wellness Visit [facility] Start: 1969 Medicare Wellness Visit Medicare Wellness Visit [facility] Start: 1967 Vuvpndy-hhvja-ewxnysd vaccination MMR Vaccines (1 of 1 - Standard series) [facility] Start: 01-09-1967 COVID-19 VACCINE (#1) COVID-19 VACCINE (#1) [facility] Start: 1966 Depression screening using PHQ-9 (Patient Health Questionnaire 9) score Depression Screening (PHQ9) [facility] Start: 1966 Hepatitis B vaccination HEP B VACCINE (1 of 3 - 3-dose series) [facility] Start: 1966 Hepatitis C antibody, confirmatory test HEPATITIS C VIRUS SCREENING [facility] Start: 1966 Prostate specific antigen measurement PSA Level [facility] Start: 1966 Protein mass conc COLONOSCOPY [facility] Start: 1966 Screening colonoscopy COLONOSCOPY [facility] Work Phone: Start: 1966 Screening for malignant neoplasm of colon [facility] Start: 1966 Tetanus vaccination [facility] End: 04-21-2022 Aerobic microbial culture Wound Aerobic Culture Microbiology Routine Once for 1 Occurrences starting 04/21/2022 until 04/21/2022 [facility] Work Phone: Comment on above: Once for 1 Occurrences starting 04/21/20 until 04/21/2022 Aerobic microbial culture Wound Aerobic Culture Microbiology Routine Ulcer of left lower extremity with fat layer exposed (HCC) 07/15/2023 8:44 AM EST [facility] Work Phone: Aerobic microbial culture Wound Aerobic Culture Microbiology Routine Ulcer of left lower extremity with fat layer exposed (HCC) 07/29/2023 1:45 PM EST [facility] Work Phone: ANCA INIT SCRN (ANCA , PR3AB, MPO) ANCA INIT SCRN (ANCA, PR3AB, MPO) Lab Today 11/14/2021 10:17 AM EDT [facility] Angiotensin converti ng enzyme [Enzymatic activity/volume] in Serum or Plasma ANGIOTENSIN CONVERTING ENZYME Lab Today 11/14/2021 10:17 AM EDT [facility] End: 07-03-2024 Aspergillus Galactomannan Antigen [facility] Comment on above: Once for 1 Occurrences starting 07/03/20 until 07/03/2024 End: 07-08-2020 Bacteria identified Aer cx Nom (Sput) Sputum Aerobic Culture Microbiology Routine Once for 1 Occurrences starting 07/08/2020 until 07/08/2020 [facility] Comment on above: Once for 1 Occurrences starting 07/08/20 until 07/08/2020 Bacteria identified Aer cx Nom (Sput) Sputum Aerobic Culture Microbiology Routine 12/03/2020 5:49 PM EDT [facility] Bacteria identified Cx Nom (Bld) [facility] Bacteria identified in Blood by Culture [facility] Bacteria identified in Blood by Culture [facility] Work Phone: End: 02-26-2023 Bacteria identified in Blood by Culture [facility] Comment on above: One Time for 1 Occurrences starting 03/2023 until 02/26/2023 Bacteria identified in Blood by Culture Blood Culture Aerobic/Anaerobic Microbiology [facility] 04/02/2025 1:31 PM EDT [facility] Work Phone: Bacteria identified in Blood by Culture Blood Culture Aerobic/Anaerobic Microbiology [facility] 05/11/2025 8:53 PM EDT [facility] Work Phone: End: 07-05-2024 Bacteria identified in Sputum by Aerobe culture Sputum Aerobic Culture Microbiology Routine Once for 1 Occurrences starting 07/05/2024 until 07/05/2024 [facility] Comment on above: Once for 1 Occurrences starting 07/05/20 until 07/05/2024 End: 04-20-2022 Bacteria identified in Unspecified specimen by Aerobe culture [facility] Work Phone: Comment on above: Once for 1 Occurrences starting 04/20/20 until 04/20/2022 Bacterial culture an d sensitivity CULTURE WOUND Microbiology Today Venous stasis ulcer of right lower leg with edema of right lower leg Chronic venous insufficiency Lymphedema 12/28/2022 2:20 PM EDT [facility] End: 11-07-2019 Basic Metabolic Panel w/ Reflex to MG Basic Metabolic Panel w/ Reflex to MG Lab Routine Tomorrow AM for 1 Occurrences starting 11/07/2019 until 11/07/2019 [facility] Comment on above: Tomorrow AM for 1 Occurrences starting 0 11/07/2019 until 11/07/2019 Body Fluid Aerobic & Anaerobic Culture Body Fluid Aerobic & Anaerobic Culture Microbiology Routine Effusion of right knee Synovitis Abscess of knee, right History of total right knee replacement 05/09/2025 2:39 PM ED [facility] Work Phone: End: 05-09-2026 Body Fluid Aerobic & Anaerobic Culture Body Fluid Aerobic & Anaerobic Culture Microbiology Routine Effusion of right knee Synovitis Abscess of knee, right History of total right knee replacement 1 Occurrences starting 05/09/2025 until 05/09/2026 [employer] Work Phone: Comment on above: 1 Occurrences starting 05/09/2025 until 05/09/2026 Body Fluid Aerobic & Anaerobic Culture [facility] Work Phone: Comment on above: Ordered: 05/09/2025 CARDIOLIPIN AB (IGG, IGA, IGM) CARDIOLIPIN AB (IGG, IGA, IGM) Lab Today 11/14/2021 1:53 PM T [facility] End: 11-07-2019 CBC auto differential CBC auto differential Lab Routine Tomorrow AM for 1 Occurrences starting 11/07/2019 until 11/07/2019 [facility] Comment on above: Tomorrow AM for 1 Occurrences starting 0 11/07/2019 until 11/07/2019 Change of dressing GA DRESSING C HANGE GA - OFFICE PERFORMED Routine Venous stasis ulcer of right lower leg with edema of right lower leg Chronic venous insufficiency Ordered: 11/16/2022 [facility] Comment on above: Ordered: 11/16/2022 Change of dressing GA DRESSING C HANGE GA - OFFICE PERFORMED Routine Venous stasis ulcer of right lower leg with edema of right lower leg Chronic venous insufficiency Lymphedema Ordered: 11/23/2022 [facility] Comment on above: Ordered: 11/23/2022 Change of dressing GA DRESSING C HANGE GA - OFFICE PERFORMED Routine Venous stasis ulcer of right lower leg with edema of right lower leg Chronic venous insufficiency Ordered: 11/30/2022 [facility] Comment on above: Ordered: 11/30/2022 Change of dressing GA DRESSING C HANGE GA - OFFICE PERFORMED Routine Venous stasis ulcer of right lower leg with edema of right lower leg Chronic venous insufficiency Lymphedema Ordered: 12/14/2022 [facility] Comment on above: Ordered: 12/14/2022 Change of dressing GA DRESSING C HANGE GA - OFFICE PERFORMED Routine Venous stasis ulcer of right lower leg with edema of right lower leg Chronic venous insufficiency Lymphedema Ordered: 12/21/2022 [facility] Comment on above: Ordered: 12/21/2022 Change of dressing GA DRESSING C HANGE GA - OFFICE PERFORMED Routine Venous stasis ulcer of right lower leg with edema of right lower leg Chronic venous insufficiency Lymphedema Ordered: 12/28/2022 [facility] Comment on above: Ordered: 12/28/2022 Change of dressing GA DRESSING C HANGE GA - OFFICE PERFORMED Routine Venous stasis ulcer of right lower leg with edema of right lower leg Chronic venous insufficiency Ordered: 01/18/2023 [facility] Comment on above: Ordered: 01/18/2023 Change of dressing GA DRESSING C HANGE GA - OFFICE PERFORMED Routine Venous stasis ulcer of right lower leg with edema of right lower leg Chronic venous insufficiency Lymphedema Foot mass, right Ordered: 01/25/2023 [facility] Comment on above: Ordered: 01/25/2023 Change of dressing GA DRESSING C HANGE GA - OFFICE PERFORMED Routine Venous stasis ulcer of right lower leg with edema of right lower leg Chronic venous insufficiency Lymphedema Foot mass, right Ordered: 02/08/2023 [facility] Comment on above: Ordered: 02/08/2023 Change of dressing GA DRESSING C HANGE GA - OFFICE PERFORMED Routine Venous stasis ulcer of right lower leg with edema of right lower leg Chronic venous insufficiency Lymphedema Ordered: 02/15/2023 [facility] Comment on above: Ordered: 02/15/2023 Change of dressing GA DRESSING C HANGE GA - OFFICE PERFORMED Routine Pressure ulcer of right foot, stage 3 Venous stasis ulcer of right lower leg with edema of right lower leg Lymphedema Chronic venous insufficiency Venous stasis ulcer of left lower leg with edema of left lower leg Ordered: 04/26/2023 [facility] Comment on above: Ordered: 04/26/2023 End: 03-08-2019 CRP, Inflammation CRP, Inflammation Routine Arthralgia, unspecified joint 1 Occurrences starting 03/07/2018 until 03/08/2019 [facility] CRYOGLOBULIN CRYOGLOBULIN Lab Today 11/15/2021 4:30 AM [facility] End: 03-31-2019 CT Foot Right Without Contrast CT Foot Right Without Contrast Routine Arthritis of foot, right Acquired pes planovalgus, right 1 Occurrences starting 03/31/2018 until 03/31/2019 [facility] End: 11-06-2019 Culture, Blood 1 Culture, Blood 1 Microbiology STAT One Time for 1 Occurrences starting 11/06/2019 until 11/06/2019 [facility] Comment on above: One Time for 1 Occurrences starting 10/20 until 11/06/2019 Culture, Blood 1 Culture, Blood 1 Microbiology STAT 11/06/2019 2:10 AM [facility] End: 11-06-2019 Culture, Blood 2 Culture, Blood 2 Microbiology STAT One Time for 1 Occurrences starting 11/06/2019 until 11/06/2019 [facility] Comment on above: One Time for 1 Occurrences starting 10/20 until 11/06/2019 Culture, Blood 2 Culture, Blood 2 Microbiology Stat [employer] Label print 11/06/2019 2:10 AM [facility] Culture, Respiratory Culture, Re spiratory Microbiology Stat [employer] Label print 11/06/2019 5:00 AM [facility] CYCLIC CITRULLINATE PEPTIDE AB CYCLIC CITRULLINATE PEPTIDE AB Lab Today 11/14/2021 4:35 AM [facility] End: 03-08-2019 Cyclic citrullinated peptide antibody CCP Antibody Routine Arthralgia, unspecified joint 1 Occurrences starting 03/07/2018 until 03/08/2019 [facility] End: 03-30-2021 Diagnostic radiography of toes XR TOE 1ST RIGHT Imaging Routine One Time for 1 Occurrences starting 03/30/2021 until 03/30/2021 [facility] Work Phone: Comment on above: One Time for 1 Occurrences starting 04/2021 until 03/30/2021 End: 03-[address] [place] [address] Comment on above: One Time for 1 Occurrences starting 10/21 until 11/13/2021 End: 03-08-2019 Erythrocyte sedimentation rate Sedimentation Rate Routine Arthralgia, unspecified joint 1 Occurrences starting 03/07/2018 until 03/08/2019 [facility] FUNGITELL ASSAY FUNGITELL ASSAY Lab Today 11/14/2021 10:17 AM [facility] End: 07-03-2024 Fungus serologic study [facility] Work Phone: Comment on above: Once for 1 Occurrences starting 07/03/20 until 07/03/2024 HAPTOGLOBIN HAPTOGLOBIN Lab Today 11/14/2021 1:53 PM [facility] Hepatitis A virus Ig M Ab [Presence] in Serum or Plasma by Immunoassay HEPATITIS A IGM AB Lab Today 11/14/2021 4:35 AM [facility] HHN Treatment [facility] Comment on above: Every 4hr while awake until discontinued starting 11/06/2019 Every 2hr As Needed until discontinued starting 11/06/2019 End: 07-03-2024 Histoplasma Ab CompFix/ImmDiff, Serum Histoplasma Ab CompFix/ImmDiff, Serum Lab Routine Once for 1 Occurrences starting 07/03/2024 until 07/03/2024 [facility] Comment on above: Once for 1 Occurrences starting 07/03/20 until 07/03/2024 MARINA AND PE, SERUM MARINA AND PE, SE RUM Lab Today 11/14/2021 10:17 AM [facility] Initiate Oxygen Ther apy Protocol [facility] Comment on above: Daily until discontinued starting 2019, 2 completed Daily until disconti nued starting 11/06/2019 End: 07-05-2024 Legionella antigen assay Legionella Antigen, Urine Microbiology Routine Once for 1 Occurrences starting 07/05/2024 until 07/05/2024 [facility] Comment on above: Once for 1 Occurrences starting 07/05/20 until 07/05/2024 M TUBERCULOSIS BY QUANTIFERON, BLD M TUBERCULOSIS BY QUANTIFERON, BLD Lab Today 11/14/2021 10:17 AM [facility] End: 07-05-2024 Microbial culture, body fluid [facility] Work Phone: Comment on above: Once for 1 Occurrences starting 07/05/20 until 07/05/2024 Procedure on tissue specimen [facility] Comment on above: Release Upon Ordering for 1 Occurrences starting 01/08/2020, 1 completed Pulse Oximetry Spot Check Pulse Oximetry Spot Check Respiratory Care Routine Every 8hr until discontinued starting 11/06/2019 [facility] Comment on above: Every 8hr until discontinued starting End: 07-05-2024 Respiratory pathogens DNA and RNA panel - Nasopharynx by HERMAN with non-probe detection Respiratory PCR Panel Microbiology Routine Once for 1 Occurrences starting 07/05/2024 until 07/05/2024 [facility] Comment on above: Once for 1 Occurrences starting 07/05/20 until 07/05/2024 End: 03-08-2019 Rheumatoid factor Rheumatoid factor Routine Arthralgia, unspecified joint 1 Occurrences starting 03/07/2018 until 03/08/2019 [facility] Rmvl prosth tot knee prosth mma w/wo insj spacer ARTHROTOMY KNEE WITH SPACER INSERTION Abscess of knee, right History of total right knee replacement [facility] [place] Serum immunofixation Immunofixat ion, Serum Lab Routine 07/08/2020 4:42 PM EST [facility] End: 11-06-2019 Sputum induction Sputum induction Respiratory Care Routine One Time for 1 Occurrences starting 11/06/2019 until 11/06/2019 [facility] Comment on above: One Time for 1 Occurrences starting 10/20 until 11/06/2019 Standard ECG ECG ECG STAT 7:16 PM EDT [facility] End: 03-16-2023 Standard ECG ECG ECG STAT One Time for 1 Occurrences starting 03/16/2023 until 03/16/2023 [facility] [facility] Work Phone: Comment on above: One Time for 1 Occurrences starting 02/20 until 03/16/2023 Strapping unna boot GA APPLY OF UNNA BOOT GA - OFFICE PERFORMED Routine Venous stasis ulcer of right lower leg with edema of right lower leg Chronic venous insufficiency Ordered: 11/16/2022 [place] [facility] Comment on above: Ordered: 11/16/2022 Strapping unna boot GA APPLY OF UNNA BOOT GA - OFFICE PERFORMED Routine Venous stasis ulcer of right lower leg with edema of right lower leg Chronic venous insufficiency Ordered: 11/30/2022 [facility] Comment on above: Ordered: 11/30/2022 Strapping unna boot GA APPLY OF UNNA BOOT GA - OFFICE PERFORMED Routine Venous stasis ulcer of right lower leg with edema of right lower leg Chronic venous insufficiency Lymphedema Ordered: 12/14/2022 [facility] Comment on above: Ordered: 12/14/2022 Strapping unna boot GA APPLY OF UNNA BOOT GA - OFFICE PERFORMED Routine Venous stasis ulcer of right lower leg with edema of right lower leg Chronic venous insufficiency Lymphedema Ordered: 12/21/2022 [facility] Comment on above: Ordered: 12/21/2022 Strapping unna boot GA APPLY OF UNNA BOOT GA - OFFICE PERFORMED Routine Venous stasis ulcer of right lower leg with edema of right lower leg Chronic venous insufficiency Lymphedema Ordered: 12/28/2022 [facility] Comment on above: Ordered: 12/28/2022 Strapping unna boot GA APPLY OF UNNA BOOT GA - OFFICE PERFORMED Routine Venous stasis ulcer of right lower leg with edema of right lower leg Chronic venous insufficiency Ordered: 01/18/2023 [facility] Comment on above: Ordered: 01/18/2023 Strapping unna boot GA APPLY OF UNNA BOOT GA - OFFICE PERFORMED Routine Venous stasis ulcer of right lower leg with edema of right lower leg Chronic venous insufficiency Lymphedema Foot mass, right Ordered: 01/25/2023 [facility] Comment on above: Ordered: 01/25/2023 Strapping unna boot GA APPLY OF UNNA BOOT GA - OFFICE PERFORMED Routine Venous stasis ulcer of right lower leg with edema of right lower leg Chronic venous insufficiency Lymphedema Ordered: 02/15/2023 [facility] Comment on above: Ordered: 02/15/2023 End: 07-05-2024 Streptococcus pneumoniae antigen assay S. pneumoniae Urine Antigen Microbiology Routine Once for 1 Occurrences starting 07/05/2024 until 07/05/2024 [facility] Comment on above: Once for 1 Occurrences starting 07/05/20 until 07/05/2024 Surgical Site Aerobi c & Anaerobic Culture [facility] Work Phone: Surgical Site Aerobi c Culture Surgical Site Aerobic Culture Microbiology Routine Primary osteoarthritis of right knee 01/08/2020 7:42 AM EDT [facility] Surgical Site Anaero bic Culture [facility] Comment on above: Release Upon Ordering for 1 Occurrences starting 01/08/2020 Thalassemia and Hemoglobinopathy Profile Thalassemia and Hemoglobinopathy Profile Lab Routine 07/08/2020 4:42 PM [facility] Transthoracic echocardiography ECHOCARDIOGRAM Echocardiography Routine Essential hypertension SOB (shortness of breath) on exertion Leg edema Ordered: 10/30/2019 [facility] Comment on above: Ordered: 10/30/2019 End: 03-08-2019 Uric Acid Uric Acid Routine Arthralgia, unspecified joint 1 Occurrences starting 03/07/2018 until 03/08/2019 [facility] Urine immunofixation Immunofixat ion, Urine Lab Routine 07/08/2020 4:42 PM EST [facility] End: 11-07-2019 Vancomycin, trough Vancomycin, trough Lab Timed One Time for 1 Occurrences starting 11/07/2019 until 11/07/2019 [place] Comment on above: One Time for 1 Occurrences starting 10/20 until 11/07/2019 Wound Aerobic And Anaerobic Culture Wound Aerobic And Anaerobic Culture Microbiology Routine 05/12/2025 1:55 AM EDT [facility] X-ray of left foot XR Foot Left 3+ Views (Standard) Imaging Routine Pain 04/22/2020 2:18 PM EDT [facility] End: 03-07-2019 XR Ankle Right 3+ Views (Standard) XR Ankle Right 3+ Views (Standard) Routine Arthralgia, unspecified joint 1 Occurrences starting 03/07/2018 until 03/07/2019 [facility] XR Chest PA and Abdo men AP XR Chest 1 View Imaging Routine 04/05/2025 10:34 AM EDT [facility] Work Phone: XR Clavicle Right XR Clavicle Ri ght Imaging JENNY 02/02/2021 4:05 PM EDT [facility] End: 03-07-2019 XR Foot Right 3+ Views (Standard) XR Foot Right 3+ Views (Standard) Routine Arthralgia, unspecified joint 1 Occurrences starting 03/07/2018 until 03/07/2019 [facility] End: 03-07-2019 XR Hip Right With Pelvis 2-3 Views (Routine) XR Hip Right With Pelvis 2-3 Views (Routine) Routine Arthralgia, unspecified joint 1 Occurrences starting 03/07/2018 until 03/07/2019 [facility] End: 03-07-2019 XR Knee Right 3 Views (Specify Views in Comments) XR Knee Right 3 Views (Specify Views in Comments) Routine Arthralgia, unspecified joint 1 Occurrences starting 03/07/2018 until 03/07/2019 [facility] End: 10-18-2025 XR Thoracic spine 3 Views XR Thoracic Spine 3 Views (Standard) Imaging Routine Compression fracture of T7 vertebra, initial encounter ([facility]) 1 Occurrences starting 10/18/2024 until 10/18/2025 [facility] Work Phone: Comment on above: 1 Occurrences starting 10/18/2024 until 10/18/2025 Immunizations Immunization Date Immunization Notes Care Provider Jessica mcqueen 02-26-2023 tetanus toxoid, reduced diphtheria toxoid, and acellular pertussis vaccine, adsorbed Shai Leonard MD Work Phone: [facility] 09-15-2014 influenza virus vaccine, unspecified formulation Shai Leonard MD Work Phone: [facility] NEGATED: Highlighted row has not occurred!01-09-2024 influenza, seasonal, injectable Patient objection Dr. Reg Hartman [facility] NEGATED: Highlighted row has not occurred!01-09-2024 Pneumococcal conjugate vaccine 20-valent (PCV20), polysaccharide [id number] conjugate, adjuvant, preservative free Patient objection Dr. Reg Hartman [facility] NEGATED: Highlighted row has not occurred!01-09-2024 SARS-COV-2 (COVID-19) vaccine, mRNA, spike protein, LNP, preservative free, 25 mcg/0.25 mL dose Patient objection Dr. Reg Hartman [facility] Payers Date Payer Category Payer Medicare HMO ANTHEM MEDIBLUE ESSENTIAL/PLUS/CONNECT/SNP HMO [id number]. [id number] 2022 Medicare [id number] 2021 Unknown [id number] 2020 Medicaid [id number] 1.2.840.786070.1.13.385.2.7.3. [id number] 2020 Medicaid 1.2.840.852425. 1.13.172.2.7.3. [id number] 2020 Medicare [id number] 1.2.840.387496.1.13.385.2.7.3. [id number] 2020 Medicare 1.2.840.558634. 1.13.172.2.7.3. 752006.315 2020 Medicaid [id number] 2020 Medicare [id number] 2013 Medicaid [id number] 1.2.840.874562.1.13.385.2.7.3. [id number] 2013 Medicaid [id number] 1.2.840.243403.1.13.385.2.7.3. 155302.315 2013 Medicaid [id number] 2.16.840.1.115435.3.249.13 1966 Unknown [id number] 2.16.840.1.136119.3.579.2.174 1966 Unknown [id number] 2.16.840.1.188849.3.579.2.174 1966 Unknown [id number] 2.16.840.1.709087.3.579.2.174 1966 Unknown [id number] 2.16.840.1.948959.3.579.2.903 1966 Unknown [id number] 2.16.840.1.149753.3.579.2.903 1966 Unknown [id number] 2.16.840.1.338017.3.579.2.903 1966 Unknown [id number] 2.16.840.1.428241.3.579.2.903 1966 Unknown [id number] 2.16.840.1.476043.3.579.2.174 1966 Unknown [id number] 2.16.840.1.819851.3.579.2.983 1966 Unknown [id number] 2.16.840.1.792028.3.579.2.983 1966 Unknown [id number] 2.16.840.1.028054.3.579.2.983 1966 Unknown [id number] 2.16.840.1.403980.3.579.2.983 1966 Unknown [id number] 2.16.840.1.520164.3.579.2.983 1966 Unknown [id number] 2.16.840.1.422035.3.579.2.983 1966 Unknown [id number] 2.16.840.1.970875.3.579.2.983 1966 Unknown [id number] 2.16.840.1.098811.3.579.2.983 1966 Unknown [id number] 2.16.840.1.685182.3.579.2.983 1966 Unknown [id number] 2.16.840.1.930524.3.579.2.983 1966 Unknown [id number] 2.16.840.1.926341.3.579.2.983 1966 Unknown [id number] 2.16.840.1.311863.3.579.2.983 1966 Unknown [id number] 2.16.840.1.823460.3.579.2.983 1966 Unknown [id number] 2.16.840.1.936794.3.579.2.983 1966 Unknown [id number] 2.16.840.1.062046.3.579.2.983 1966 Unknown [id number] 2.16.840.1.181174.3.579.2.983 1966 Unknown [id number] 2.16.840.1.182724.3.579.2.983 1966 Unknown [id number] 2.16.840.1.216971.3.579.2.983 1966 Unknown [id number] 2.16.840.1.519382.3.579.2.983 1966 Unknown [id number] 2.16.840.1.268400.3.579.2.983 1966 Unknown [id number] 2.16.840.1.343156.3.579.2.983 1966 Unknown [id number] 2.16.840.1.533240.3.579.2.983 1966 Unknown [id number] 2.16.840.1.977781.3.579.2.983 1966 Unknown [id number] 2.16.840.1.280567.3.579.2.983 1966 Unknown [id number] 2.16.840.1.793294.3.579.2.983 1966 Unknown [id number] 2.16.840.1.408850.3.579.2.983 1966 Unknown [id number] 2.16.840.1.775766.3.579.2.983 1966 Unknown [id number] 2.16.840.1.248461.3.579.2.983 1966 Unknown [id number] 2.16.840.1.545965.3.579.2.983 1966 Unknown [id number] 2.16.840.1.669725.3.579.2.983 1966 Unknown [id number] 2.16.840.1.638749.3.579.2.983 1966 Unknown [id number] 2.16.840.1.187726.3.579.2.983 1966 Unknown [id number] 2.16.840.1.401364.3.579.2. 1966 Unknown [id number] 2.16.840.1.080848.3.579.2.983 1966 Unknown [id number] 2.16.840.1.804993.3.579.2.98 1966 Unknown [id number] 2.16.840.1.191925.3.579.2.983 1966 Unknown [id number] 2.16.840.1.239262.3.579.2.3 1966 Unknown [id number] 2.16.840.1.090211.3.579.2.983 1966 Unknown [id number] 2.16.840.1.436053.3.579.2.983 1966 Unknown [id number] 2.16.840.1.157263.3.579.2.983 1966 Unknown [id number] 2.16.840.1.735116.3.579.2.983 1966 Unknown [id number] 2.16.840.1.943285.3.579.2.983 1966 Unknown [id number] 2.16.840.1.021735.3.579.2.983 1966 Unknown [id number] 2.16.840.1.148624.3.579.2.983 1966 Unknown [id number] 2.16.840.1.982456.3.579.2 1966 Unknown [id number] 2.16.840.1.281316.3.579.2.90 1966 Unknown [id number] 2.16.840.1.984652.3.579.290 1966 Unknown [id number] 2.16.840.1.435686.3.579.290 1966 Unknown [id number] 2.16.840.1.509357.3.579.298 1966 Unknown [id number] 2.16.840.1.023110.3.579.2 1966 Unknown [id number] 2.16.840.1.026923.3.579.2 1966 Unknown [id number] 2.16.840.1.706555.3.579.2.900 1966 Unknown [id number] 2.16.840.1.007743.3.579.2900 1966 Unknown [id number] 2.16.840.1.258383.3.579.290 1966 Unknown [id number] 2.16.840.1.138735.3.579.2 1966 Unknown [id number] 2.16.840.1.822695.3.579.2.90 1966 Unknown [id number] 2.16.840.1.493648.3.579.2 1966 Unknown [id number] 2.16.840.1.814073.3.579.2.90 1966 Unknown [id number] 2.16.840.1.456498.3.579.2903 1966 Unknown [id number] 2.16.840.1.019446.3.579.2.903 1966 Unknown [id number] 2.16.840.1.809114.3.579.2.903 1966 Unknown [id number] 2.16.840.1.180592.3.579.2.90 1966 Unknown [id number] 2.16.840.1.511279.3.579.2.90 1966 Unknown [id number] 2.16.840.1.223578.3.579.2. 1966 Unknown [id number] 2.16.840.1.487939.3.579.2.90 1966 Unknown [id number] 2.16.840.1.346157.3.579.2.90 1966 Unknown [id number] 2.16.840.1.712828.3.579.2.903 1966 Unknown [id number] 2.16.840.1.063016.3.579.2. 1966 Unknown [id number] 2.16.840.1.765374.3.579.2.903 1966 Unknown [id number] 2.16.840.1.388841.3.579.2.90 1966 Unknown [id number] 2.16.840.1.811518.3.579.2.903 Social History Date Type Detail Facility Start: 01-25-2017 End: 01-02-2025 Tobacco smoking status OHIS Former smoker [facility] Start: 08-22-1984 End: 09-27-2011 History of tobacco use Current smoker [employer] Phone: History of tobacco use Chews Tobacco [employer] Phone: Start: 1965 Sex Assigned At Not on file [employer] Phone: Start: 08-22-1984 End: 08-22-2007 History of tobacco use Cigarette Smoker [facility] Start: 04-05-2019 End: 05-12-2025 Alcohol intake Not Currently [facility] Start: 09-21-2019 End: 01-15-2021 Alcohol intake Current non-drinker of alcohol (finding) [facility] Start: 09-27-2021 End: 03-16-2023 Exposure to SARS-CoV-2 (event) Not sure [facility] Start: 10-30-2019 End: 06-20-2025 Alcohol intake Ex-drinker (finding) [facility] History of tobacco use Snuff User [facility] [place] [place] Start: 04-22-2020 End: 01-02-2025 Tobacco use and exposure Current user [facility] Start: 07-07-2020 End: 12-03-2020 History SDOH Alcohol Frequency 1 [facility] Exposure to SARS-CoV -2 (event) Unable to assess [facility] Start: 05-03-2022 History SDOH Alcohol Comment quit drinking aprox 2011 [facility] [employer] Work Phone: Start: 02-08-2023 End: 05-12-2025 History of Social function [facility] Start: 05-17-2017 Gender identity Identifies as male gender (finding) [facility] How often to you hav e a drink containing alcohol? Never [facility] Average Number of Drinks Not on file [facility] Start: 06-14-2018 Sexual orientation Heterosexual (finding) [facility] History of tobacco use Passive smoker [...] the mortgage or rent on time? No [facility] Start: 05-22-2024 Unknown if ever smoked Fariba Summers [place] (I/We) worried wheth er (my/our) food would run out before (I/we) got money to buy more. Sometimes true [facility] Medical Equipment Procedure Code Equipment Code Equipment Origin al Text Equipment Identifier Dates Baseplate Sz5 Ti bial Tritanium Triathlon - [id number] [id number] , [id number]_[facility] FDA Start: 01-08-2020 Insert Sz5-10 Ti bial Cr X3 Triathlon [id number] - [id number] ()[id number] [id number], [id number]_[facility] FDA Start: 01-08-2020 Component Sz5 Fe m Cr Rt Cementless Beaded W/Pa Triathlon - [id number] ()[id number] [id number], [id number]_imp FDA Start: 01-08-2020 ()[id number] 7)[id number])[id number], [id number]_[facility] FDA Start: 01-08-2020 Goals Date Patient Goal [...] and elevating legs to better manage edema. Biomedical Engineering Supervisor Goals 3. Reduce LE edema as demontrated [...] week, then removed and reapplied same appointment) [facility] Goals 3. Reduce LE edema as demontrated [...] and elevating legs to better manage edema. Biomedical Engineering Supervisor Goals 3. Reduce LE edema as demontrated [...] Date & Type Note Facility 07-04-2025 Note [facility] 07-03-2025 Note [facility] 07-03-2025 Note [facility] 07-03-2025 Note [facility] 07-02-2025 Note [facility] 07-02-2025 Note [facility] Note CULTURE Culture in Progress GRAM STAIN RESULT Many WBC Many RBC No Organisms Seen [facility] Comment on above: Performed By: #### L [id number] ####[facility] [address], [place] [address] Venancio Richardson M.D. [id number] 07-01-2025 Note CULTURE Culture in Progress GRAM STAIN RESULT Many WBC Many RBC No Organisms Seen [facility] Comment on above: Performed By: #### L [id number] ####[facility] [address], [place] [address] Venancio Richardson M.D. [id number] 07-01-2025 Note [facility] 06-20-2025 Note At this point in [...] AUTHENTICATED BY SOFÍA DUKES, ON 06/21/2025 09:06:26 [facility] 05-30-2025 Note Carmen comes in today [...] AUTHENTICATED BY SOFÍA DUKES, ON 05/31/2025 17:10:19 [facility] 05-16-2025 Progress note Formatting of t his note might be different from the original. This nurse reviews discharge instructions with the patient. Patient states understanding. No further education is needed. Medications patient brought home that were sent to pharmacy have been returned by Medina MENDOZA [facility] 05-16-2025 Miscellaneous Notes This nurse reviews discharge instructions with the patient. Patient states understanding. No further education is needed. Medications patient brought home that were sent to pharmacy have been returned by Medina MENDOZA [facility] ENCOUNTER FOR HOME MEDICAL EQUIPMENT PATIENT: Carmen Gilman : 1965 Statement of Care: I certify that Carmen Gilman is under my care and that I, a Nurse Practitioner, had a ribl-ya-swzz encounter with this patient today to evaluate and discuss the need for home medical equipment. I certify that based on the findings of this evaluation, which included but was not limited to the mnfp-tx-ovov requirements, the following home medical equipment is [...] 1965 (59 y.o.) Date of Service: 05/13/2025 [facility]: [id number] Procedure(s): INCISION AND DRAINAGE TOTAL KNEE Pre-Operative Diagnoses: * Right knee skin infection/abscess Post-Operative Diagnoses: * Same as Pre-Op Diagnosis Surgeons and Role: * Sofía Dukes MD - Primary Anesthesiologist: Bryson Kelley MD Anesthesiologist Strategy Planning Consultant: Veronica Knapp AA Interventional Radiologist: Abigail Camejo Scrub Person: Patel Burns ST GEOPHYSICAL ENGINEER: Roseanna Oliveros RN Operative findings: see [...] MD 05/13/2025 4:57 PM ATTENDING PHYSICIAN [facility] PRIMARY CARE PHYSICIAN ANI WORLEY CNP [...] PACU without intraoperative complication. D 05/13/2025 17:01 [id number] T 05/13/2025 17:45 MCB/MODL Wiliam Reddy may [...] Absence of physical injury Outcome: Partially Met [facility] EMERGENCY DEPARTMENT ATTENDING NOTE: NAME: Carmen Gilman CSN: [id number] 59 y.o. ED Attestation: I have reviewed [...] unspecified cellulitis site documented in this encounter [facility] 05-16-2025 Note [facility] 05-16-2025 History of Present illness Narrative [...] do daily dressing changes. D 05/16/2025 13:36 [id number] T 05/16/2025 15:14 MCB/MODL Date: 05/16/2025 Time: 11:40 AM Patient Name: Carmen Gilman Date of : 1965 Discharge Disposition Update: Discussed patient with Kathleen Dunham CNP. Patient is ready for discharge. Patient was accepted by [facility] for home health care services. SW educated [...] A : Post Acute Patient Choice 1[facility] B: [facility]-Way Facility Transportation: Discharge Disposition: Regulatory Documentation: Physical Therapy PHYSICAL THERAPY TREATMENT NOTE Skilled Therapy Needs After Discharge Anticipate Resolution of Current Assessment Limitations Including: Pain, Mechanical Barriers Are technical delivery manager Therapy Services Needed After Discharge: Yes Intensity of technical delivery manager Therapy: 5 to 7 days per week (Discussed PT concerns with returning home alone/ home safety/fall prevention. Pt is refusing any short term inpt rehabilitation and states he will only be agreeable to home health PT services. Pt report ESTEBAN will help him as needed) Anticipated Duration of technical delivery manager Therapy: Duration 7 - 10 days PT [...] Stand by assist, with bilateral UE support Metal Fabricator Apprentice - Standing Static: BUE, wheeled walker Standing Balance - Dynamic: Stand by assist, with bilateral UE support Metal Fabricator Apprentice - Standing Dynamic: BUE, wheeled walker Loss of Balance- Standing Dynamic: (Unsteady throughout and declining to have FIRMWARE TEST ENGINEER hold Gait belt.) Transfers Sit to Stand: Stand by assist (Patient rocking for momentum 4x for stand.) Bed to Chair: Stand by assist (to commode) Metal Fabricator Apprentice: BUE, wheeled walker Skilled Intervention Provided: verbal cues, monitoring patient response with activity, patient education For: UE positioning, controlled descent, efficient movement, fall prevention, safety during functional tasks, safe use of AD and/or equipment, weight shifting Resulting in: decreased safety (Patient having no follow through with VC given for sequencing,Safety with AD management or for eccentric control for descent to chair. Patient ordering FIRMWARE TEST ENGINEER to exit room before sitting on commode. Bioinformatics Associate declining to leave until patient was safely [...] refusing to have gait belt donned but FIRMWARE TEST ENGINEER encouraging for safety. PAtient requiring bed to [...] PRN) Prior Level of Function Level of [place] - Transfers/Ambulation/Mobility: Independent with functional transfers, Independent with household ambulation (ambulates in home and in community with cane;) Level of [place] - ADLs: (ESTEBAN washes pt hair, legs and feet) Level of [place] - Homemaking: (ESTEBAN performs tasks) Driving: Patient [...] 11:49 AM EDT ATTENDING PHYSICIAN TATA CHANDRA [facility] PRIMARY CARE PHYSICIAN ANI WORLEY CNP [...] weeks in the office. D 05/15/2025 17:23 [id number] T 05/15/2025 17:45 MCB/MODL Date: 05/15/2025 Time: [...] 1: [facility] Plan B: Half-Way Facility Transportation: Discharge Disposition: Regulatory Documentation: [facility] PROGRESS NOTE Patient name: Carmen Gilman Date of : 1965 Assessment and plan Carmen Gilman is a 59 y.o. male patient of Ani Worley CNP with history of Anxiety, Arrhythmia, Arthritis, COPD, DM, HTN, Left Knee Pain, Opioid Dependance, who presented to [facility] on 05/11/2025 with complaints of Rt Knee [...] and make adjustments as needed. Please use isocket to call pharmacy or secure chat the [...] 05/12/25 125.5 kg (276 lb 10.8 oz) [place] body weight: 77.6 kg (171 lb 1.2 [...] Arthritis Asthma COPD (chronic obstructive pulmonary disease) ([facility]) Sometimes uses home O2 Diabetes ([facility]) Hypertension Knee pain, left Leg swelling Opioid dependence ([facility]) Secondary adrenal insufficiency 04/30/2022 left AMA 04/30/22 [...] No Nutrition Related Allergies noted Cultural or Catholic Dietary Needs :No Cultural or Catholic Dietary needs noted Patient/family comments:s Difficulty Chewing [...] adj Kevan Palmer RD ATTENDING PHYSICIAN [facility] PRIMARY CARE PHYSICIAN ANI WORLEY CNP [...] Further recommendations to follow. D 05/14/2025 13:24 [id number] 05/14/2025 13:42 MCB/MODL [facility] PROGRESS NOTE Patient name: Carmen Gilman Date of : 1965 Assessment and plan Carmen Gilman is a 59 y.o. male patient of Ani Worley CNP with history of Anxiety, Arrhythmia, Arthritis, COPD, DM, HTN, Left Knee Pain, Opioid Dependance, who presented to [facility] on 05/11/2025 with complaints of Rt Knee [...] discoloration BLE Psych: normal mood and affect [facility] PROGRESS NOTE Patient name: Carmen Gilman Date of : 1965 Assessment and plan Carmen Gilman is a 59 y.o. male patient of Ani Worley CNP with history of Anxiety, Arrhythmia, Arthritis, COPD, DM, HTN, Left Knee Pain, Opioid Dependance, who presented to [facility] on 05/11/2025 with complaints of Rt Knee [...] and make adjustments as needed. Please use isocket to call pharmacy or secure chat the [...] 05/12/25 125.5 kg (276 lb 10.8 oz) [place] body weight: 77.6 kg (171 lb 1.2 [...] Personnel: Sorin Simons RPh,PharmD Contact: or Sameerera [facility] PROGRESS NOTE Patient name: Carmen Gilman Date of : 1965 Assessment and plan Carmen Gilman is a 59 y.o. male patient of Ani Worley CNP with history of Anxiety, Arrhythmia, Arthritis, COPD, DM, HTN, Left Knee Pain, Opioid Dependance, who presented to [facility] on 05/11/2025 with complaints of Rt Knee [...] and make adjustments as needed. Please use isocket to call pharmacy or secure chat the [...] 1 Encounters: 05/09/25 120.2 kg (265 lb) [place] body weight: 77.6 kg (171 lb 1.2 oz) Adjusted ideal body weight: 94.6 kg (208 lb 10.3 oz) Patient Tmax (last 24 hours): 98 F Micro: pend Pharmacy Personnel: Yoly Birch RPh,PharmD Contact: or Sameerera documented in this encounter [facility] 05-16-2025 Hospital course Narrative [facility] DISCHARGE SUMMARY -- [facility] Carmen Gilman : 1965 Admitted: 05/11/2025 Discharge [...] Knee Pain, Opioid Dependance, who presented to [facility] on 05/11/2025 with complaints of Rt Knee [...] recommended rehab facility, patient refused and wants [facility] Encouraged and discussed importance of compliance [...] . Quantity: 84 tablet naloxone 4 mg/actuation [place] Commonly known as: NARCAN Administer 1 spray [...] Physician(s) Follow Up: OTHER - NOT IN [facility]-Daytime [id number] Address: [address] [place] [address] Servicing Counties: [phone] Condition at Discharge: Stable Disposition: Home with Home Health I reviewed discharge recommendations with the patient in person. Patient instructions, including activity, were given to the patient/family at discharge. On day of discharge I saw Carmen Gilman and spent: > 30 minutes on discharge. Completed by: Kathleen Dunham CNP on 05/16/25, 11:34 AM documented in this encounter [facility] 05-16-2025 Progress note Formatting of t his note might be different from the original. [id number] ENCOUNTER FOR HOME MEDICAL EQUIPMENT PATIENT: Carmen Gilman : 1965 Statement of Care: I certify that Carmen Gilman is under my care and that I, a Nurse Practitioner, had a [id number] encounter with this patient today to evaluate and discuss the need for home medical equipment. I certify that based on the findings of this evaluation, which included but was not limited to the [id number] requirements, the following home medical equipment is medically necessary: Tub Bench and Bariatric Wheeled Walker for the treatment of mobility limitations to enable participation in mobility-related activities of daily living (MRADL) in the home. Based on the current evaluation, patient can safely use prescribed equipment to perform mobility-related activities of daily living (MRADL) in the home.. Signed by: Kathleen Dunham CNP on 05/16/2025 [facility] 05-16-2025 Progress note Formatting of t his note might be different from the original. Pt refused morning daily weight. [facility] 05-15-2025 Plan of care note Problem: [...] Absence of pressure injury Outcome: Partially Met [facility] 05-15-2025 Note [facility] al 05-15-2025 Consult note Associated Order (s): IP CONSULT TO HOME HEALTH HUB Date: 05/15/2025 Time: 3:58 PM Patient Name: Carmen Gilman Date of : 1965 Liaison received a [facility] consult for SN,PT,OT. Patient's agency choice is [facility] Name of [facility] agency: Pending / Accepted (if [facility], include region) [facility] accepted Referrals sent to: (names of agencies) [facility] pending [facility]'s declined [facility]-accepted Infusion pharmacy: (name) Referral pending or accepted? For OPAT, TPN, or TF: (list) Referral order placed? Has script been sent? (Yes/no) n/a [facility] (orders) created for the following services: [or waiting for ____ (i.e wound care)] SN,PT,OT Verify demographics (residential address) [address] [place] [id number] What is the primary number to reach you? Who is your family physician/primary care physician? Ani Worley, RETURNED GOODS SORTER Estimated Discharge Date (NATI): 05/16 If discharge needs change, please reach out to liaison assigned on treatment team as hub is not notified of new consults once team is following. Thank you. [facility] 05-15-2025 Consult note Associated Order (s): IP CONSULT TO [facility] Date: 05/15/2025 Time: 3:58 PM Patient Name: Carmen Gilman Date of : 1965 Liaison received a [facility] consult for SN,PT,OT. Patient's agency choice is [facility] Name of [facility] agency: Pending / Accepted (if [facility], include region) [facility] accepted Referrals sent to: (names of agencies) [facility] pending [facility] -accepted Infusion pharmacy: (name) Referral pending or accepted? For OPAT, TPN, or TF: (list) Referral order placed? Has script been sent? (Yes/no) n/a [facility] (orders) created for the following services: [or waiting for ____ (i.e wound care)] SN,PT,OT Verify demographics (residential address) [address] [id number] What is the primary number to reach you? Who is your family physician/primary care physician? Ani Worley, RETURNED [employer] SORTER Estimated Discharge Date (NATI): 05/16 If discharge [...] Assessment Limitations Including: Pain, Mechanical Barriers Are technical delivery manager Therapy Services Needed After Discharge: Yes Intensity of technical delivery manager Therapy: 5 to 7 days per week (Discussed PT concerns with returning home alone/ home safety/fall prevention. Pt is refusing any short term inpt rehabilitation and states he will only be agreeable to home health PT services. Pt report ESTEBAN will help him as needed) Anticipated Duration of technical delivery manager Therapy: Duration 7 - 10 days PT [...] assist, with bilateral UE support, with device Metal Fabricator Apprentice - Standing Static: BUE, wheeled walker Standing Balance - Dynamic: Stand by assist, with bilateral UE support, with device Metal Fabricator Apprentice - Standing Dynamic: BUE, wheeled walker Loss [...] assist Stand Pivot Transfers: Stand by assist Metal Fabricator Apprentice: BUE, wheeled walker Gait/Locomotion Gait Assistance: Stand [...] PRN) Prior Level of Function Level of [place] - Transfers/Ambulation/Mobility: Independent with functional transfers, Independent with household ambulation (ambulates in home and in community with cane;) Level of [place] - ADLs: (ESTEBAN washes pt hair, legs and feet) Level of [place] - Homemaking: (ESTEBAN performs tasks) Driving: Patient [...] Arthritis Asthma COPD (chronic obstructive pulmonary disease) ([facility]) Sometimes uses home O2 Diabetes (HCC) Hypertension Knee pain, left Leg swelling Opioid dependence ([facility]) Secondary adrenal insufficiency 04/30/2022 left AMA 04/30/22 [...] role. Patient was just recently discharged from [facility] on 04/05/25 to [facility]. Patient signed himself out AMA on 04/09/25. [...] A : Post Acute Patient Choice 1: [facility] at Home/[facility] Health Plan B: Half-Way Facility Transportation Assessment and Background Information: Family [...] Caregiver Assessment: SDOH: ATTENDING PHYSICIAN TATA CHANDRA [facility] PRIMARY CARE PHYSICIAN ANI WORLEY CNP [...] room debridement on 05/13/2025. D 05/12/2025 09:47 [id number] 05/12/2025 10:17 MCB/MODL documented in this encounter [facility] 05-15-2025 Consult note Formatting of th [...] Assessment Limitations Including: Pain, Mechanical Barriers Are technical delivery manager Therapy Services Needed After Discharge: Yes Intensity of technical delivery manager Therapy: 5 to 7 days per week (Discussed PT concerns with returning home alone/ home safety/fall prevention. Pt is refusing any short term inpt rehabilitation and states he will only be agreeable to home health PT services. Pt report ESTEBAN will help him as needed) Anticipated Duration of technical delivery manager Therapy: Duration 7 - 10 days PT [...] assist, with bilateral UE support, with device Metal Fabricator Apprentice - Standing Static: BUE, wheeled walker Standing Balance - Dynamic: Stand by assist, with bilateral UE support, with device Metal Fabricator Apprentice - Standing Dynamic: BUE, wheeled walker Loss [...] assist Stand Pivot Transfers: Stand by assist Metal Fabricator Apprentice: BUE, wheeled walker Gait/Locomotion Gait Assistance: Stand [...] PRN) Prior Level of Function Level of [place] - Transfers/Ambulation/Mobility: Independent with functional transfers, Independent with household ambulation (ambulates in home and in community with cane;) Level of [place] - ADLs: (ESTEBAN washes pt hair, legs and feet) Level of [place] - Homemaking: (ESTEBAN performs tasks) Driving: Patient [...] Arthritis Asthma COPD (chronic obstructive pulmonary disease) ([facility]) Sometimes uses home O2 Diabetes (HCC) Hypertension Knee pain, left Leg swelling Opioid dependence ([facility]) Secondary adrenal insufficiency 04/30/2022 left AMA 04/30/22 [...] hospital or completion of Physical Therapy Plan. [facility] 05-15-2025 Note [facility] 05-[facility] Plan of care note [...] Absence of pressure injury Outcome: Partially Met [facility] 05-15-2025 Plan of care note Problem: Actual or potential alteration in health Goal: Absence of healthcare acquired conditions Outcome: Partially Met Goal: Knowledge of Interdisciplinary Plan of Care Outcome: Partially Met Goal: Knowledge of Enviroment Outcome: Partially Met [facility] 05-14-2025 Note [facility] 05-14-2025 Progress note Formatting of t his note might be different from the original. Pt refused insulin and cardiac/spo2 monitoring at this time. Pt educated about risks and states he will stop having as much sugar with meals. [employer] METALL[employer] TECHNICIAN notified. T [facility] 05-14-2025 Note [facility] 05-14-2025 Note Formatting of this n ote might be different from the original. PHYSICAL THERAPY VISIT VARIANCE NOTE Attempted to see patient at this time, but unable secondary to: pt refused despite encouragement and education . Will follow up as appropriate. [facility] 05-14-2025 Note Formatting of this n ote might be different from the original. OCCUPATIONAL THERAPY VISIT VARIANCE NOTE Attempted to see patient at this time, but unable secondary to: Refused, reporting he wants to rest and try to get up later. Will follow up as appropriate. T [facility] 05-14-2025 Plan of care note Problem: [...] Absence of pressure injury Outcome: Partially Met [facility] 05-13-2025 Procedure note Brief Post Operative Note Patient Name: Carmen Gilman : 1965 (59 y.o.) Date of Service: 05/13/2025 [facility]: [id number] Procedure(s): INCISION AND DRAINAGE TOTAL KNEE Pre-Operative Diagnoses: * Right knee skin infection/abscess Post-Operative Diagnoses: * Same as Pre-Op Diagnosis Surgeons and Role: * Sofía Dukes MD - Primary Anesthesiologist: Bryson Kelley MD Anesthesiologist Strategy Planning Consultant: Veronica Knapp AA Interventional Radiologist: Abigail Camejo Scrub Person: Patel Burns ST GEOPHYSICAL ENGINEER: Roseanna Oliveros RN Operative findings: see [...] NO Sofía Dukes MD 05/13/2025 4:57 PM [facility] 05-13-2025 Procedure note ATTENDING PHYSICIAN TATA [facility] PRIMARY CARE PHYSICIAN ANI WORLEY CNP ADMITTING [...] PACU without intraoperative complication. D 05/13/2025 17:01 [id number] 05/13/2025 17:45 MCB/MODL [facility] 05-13-2025 Attending History and physical note INTERVAL HISTORY AND PHYSICAL Patient Name: Carmen Gilman Admit Date: [id number] MR #: [id number] : 1965 The H&P has been reviewed and the patient has been examined. I concur with the findings of the H&P. There are no significant changes. It is appropriate to proceed with the planned procedure. Sedation Plan: Per Anesthesia Provider Sofía Dukes MD 05/13/2025 3:39 PM Source Note - Sofía Dukes MD - 05/12/2025 9:43 AM EDT ATTENDING PHYSICIAN [facility]ATA [facility]IMARY CARE PHYSICIAN ANI WORLEY CNP [...] room debridement on 05/13/2025. D 05/12/2025 09:47 [id number] 05/12/2025 10:17 MCB/MODL [facility] 05-13-2025 History and physical note INTERVAL HISTORY AND PHYSICAL Patient Name: Carmen Gilman Admit Date: [id number] MR #: [id number] : 1965 The H&P has been reviewed and the patient has been examined. I concur with the findings of the H&P. There are no significant changes. It is appropriate to proceed with the planned procedure. Sedation Plan: Per Anesthesia Provider Sofía Dukes MD 05/13/2025 3:39 PM Source Note - Sofía Dukes MD - 05/12/2025 9:43 AM EDT ATTENDING PHYSICIAN [facility]ARE PHYSICIAN ANI WORLEY CNP [...] room debridement on 05/13/2025. D 05/12/2025 09:47 [id number] 05/12/2025 10:17 MCB/MODL [facility] HISTORY AND PHYSICAL -- [facility] Patient name: Carmen Gilman Date of : 1965 Admission date: 05/11/2025 Physicians: Ani Worley CNP (Family); No ref. provider found (Referring) Carmen Gilman is a 59 y.o. male patient of Ani Worley CNP with history of Anxiety, Arrhythmia, Arthritis, COPD, DM, HTN, Left Knee Pain, Opioid Dependance, who presented to [facility] on 05/11/2025 with complaints of Rt Knee [...] Arthritis Asthma COPD (chronic obstructive pulmonary disease) ([facility]) Sometimes uses home O2 Diabetes ([facility]) Hypertension Knee pain, left Leg swelling Opioid dependence ([facility]) Secondary adrenal insufficiency 04/30/2022 left AMA 04/30/22 [...] Knee Pain, Opioid Dependance, who presented to [facility] on 05/11/2025 with complaints of Rt Knee [...] Consult Vascular: P documented in this encounter [facility] 05-13-2025 Consult note Associated Order (s): IP CONSULT TO CARE MANAGEMENT Date: 05/13/2025 Time: 2:44 PM Patient Name: Carmen Gilman Date of : 1965 Reason for Consult: Discharge Plan Discussion: Met with patient at bedside. Introduced role. Patient was just recently discharged from [facility] on 04/05/25 to [facility]. Patient signed himself out AMA on 04/09/25. [...] A : Post Acute Patient Choice 1: [facility] at Home/[facility] Health Plan B: Half-Way Facility Transportation Assessment and Background Information: Family [...] Current Home Equipment: Cane Caregiver Assessment: SDOH: [facility] 05-13-2025 Progress note Formatting of t his note might be different from the original. Wiliam Carrascoon may skip 9am dose of vancomycin due to intolerance with potassium. [facility] 05-13-2025 Katie Addison ok 05-13-2025 Progress note Formatting of t his note might be different from the original. Patient refusing 0600 dose of IV Lasix stating "I was up all night pissing and now they want you to give me more? No, I am not taking that right now." Patient voices understanding the purpose of the Lasix when educated. T [facility] 05-13-2025 Progress note Formatting of t his note might be different from the original. Patient refusing daily weight at this time. [facility] 05-13-2025 Plan of care note Problem: Actual or potential alteration in health Goal: Absence of healthcare acquired conditions Outcome: Partially Met Goal: Knowledge of Interdisciplinary Plan of Care Outcome: Partially Met Goal: Knowledge of Enviroment Outcome: Partially Met T [facility] 05-12-2025 Plan of care note Problem: [...] to cope with pain Outcome: Partially Met [facility] 05-12-2025 Plan of care note Problem: Actual [...] Absence of physical injury Outcome: Partially Met [facility] 05-12-2025 Consult note Formatting of th is note might be different from the original. ATTENDING PHYSICIAN TATA [facility] PRIMARY CARE PHYSICIAN ANI WORLEY CNP [...] room debridement on 05/13/2025. D 05/12/2025 09:47 [id number] 05/12/2025 10:17 MCB/MODL [facility] 05-12-2025 Emergency department Note Into patient [...] also educated on recent pain medication administration. [facility] 05-12-2025 Emergency department Note Into patient [...] denies further needs. Call light within reach. [facility] EM[facility]Y [facility] WHIT NOTE: NAME: Carmen Gilman CSN: [id number] 59 y.o. PCP: Ani Worley CNP History: [...] All other components within normal limits Narrative: [facility] Laboratory Services has implemented the eGFR [...] Procedure Abnormality Status --------- ------ CBC Auto Differential[[id number]] Abnormal Final result Manual Differential[[id number]] Abnormal Final result CBC and Diff Morphology[[id number]] Abnormal Final result Please view results for [...] Chronic respiratory failure with hypoxia and hypercapnia ([facility]) 07/08/2020 Uncomplicated opioid dependence ([facility]) 07/08/2020 Atrial fibrillation with rapid ventricular response ([facility]) 07/08/2020 Obesity (BMI 30-39.9) 07/08/2020 Type 2 diabetes mellitus without complication, without long-term current use of insulin ([facility]) 07/08/2020 Mucopurulent chronic bronchitis ([facility]) 12/03/2020 Polysubstance abuse ([facility]) 06/03/2021 Leukocytosis 06/03/2021 Nondependent cocaine abuse ([facility]) 06/03/2021 Hypotension 04/20/2022 Acute pain of left hip 04/24/2022 Pain of left femur 04/24/[address] 04/25/2022 Alcoholic cirrhosis of liver with ascites ([facility]) 04/28/2022 Hematoma 05/17/2023 Thrombocytopenia 05/25/2023 Venous stasis dermatitis of both lower extremities 05/25/2023 Chronic pain 05/25/2023 Plantar ulcer of right foot ([facility]) 05/25/2023 Ulcer of left lower leg ([facility]) 05/25/2023 Infection of prosthetic right knee joint ([facility]) 06/09/2023 Adrenal insufficiency 06/12/2023 Foot infection 07/29/2023 Cellulitis 10/01/2023 Pancytopenia ([facility]) 10/12/2023 Chronic diastolic congestive heart failure (HCC) 10/12/2023 Acute heart failure with preserved ejection fraction (HFpEF) ([facility]) 07/02/2024 Acute exacerbation of chronic obstructive pulmonary disease (COPD) ([facility]) 10/16/2024 Pulmonary hypertension (HCC) 01/02/2025 Edema of [...] Knee pain, left Leg swelling Opioid dependence ([facility]) Secondary adrenal insufficiency 04/30/2022 ED MEDICATIONS GIVEN: [...] tingling to the feet. Patient admitted to [facility] admitting physicians for further management . Clinical Impression: 1. Leg pain 2. Open wound of right knee, leg, and ankle, initial encounter 3. Cellulitis, unspecified cellulitis site Disposition: ED Disposition ED Disposition Hospitalize Condition -- Comment Recommended Level of Care: Med Surg Phone call required?: Yes Camron Goyal Jr., PA-C, [facility] ED Advanced Practice Provider [facility] [1] Social History Socioeconomic [...] with Dr Dukes documented in this encounter [facility] 05-12-2025 Emergency department Note Rounded on [...] emptied urinal and straightened up pt room. [facility] 05-12-2025 Physician Emergency department Note [facility] ATTENDING NOTE: NAME: Carmen Gilman CSN: [id number] 59 y.o. ED Attestation: I have reviewed [...] initial encounter 3. Cellulitis, unspecified cellulitis site [facility] Work Phone: 05-12-2025 Emergency department Note Snack provided at this time. [facility] 05-12-2025 Katie [facility] 05-12-2025 Emergency department Note Report received from Nathaniel MENDOZA at bedside. Pt requesting a snack at this time. [facility] 05-12-2025 Emergency department Note Hourly rounding assessment completed on the patient. [x] Patient updated on plan of care [x] All comfort needs addressed [x] Patient updated on duration of visit All questions answered, patient denies further needs. Call light within reach. [facility] 05-12-2025 History and physical note [facility] HISTORY AND PHYSICAL -- [facility] Patient name: Carmen Gilman Date of : 1965 Admission date: 05/11/2025 Physicians: Ani Worley CNP (Family); No ref. provider found (Referring) Carmen Gilman is a 59 y.o. male patient of Ani Worley CNP with history of Anxiety, Arrhythmia, Arthritis, COPD, DM, HTN, Left Knee Pain, Opioid Dependance, who presented to [facility] on 05/11/2025 with complaints of Rt Knee [...] as noted in my documentation below. LUKASZ Gilamn is a 59 y.o. male patient of Ani Worley CNP with history of Anxiety, Arrhythmia, Arthritis, COPD, DM, HTN, Left Knee Pain, Opioid Dependance, who presented to [facility] on 05/11/2025 with complaints of Rt Knee [...] Tentative Plan OR Mon Consult Vascular: P [facility] 05-12-2025 Physician Emergency department Note [facility] WHIT NOTE: NAME: Carmen Gilman CSN: [id number] 59 y.o. PCP: Ani Worley CNP History: [...] All other components within normal limits Narrative: [facility] has implemented the eGFR [...] Procedure Abnormality Status --------- ------ CBC Auto Differential[[id number]] Abnormal Final result Manual Differential[[id number]] Abnormal Final result CBC and Diff Morphology[[id number]] Abnormal Final result Please view results for [...] Chronic respiratory failure with hypoxia and hypercapnia ([facility]) 07/08/2020 Uncomplicated opioid dependence ([facility]) 07/08/2020 Atrial fibrillation with rapid ventricular response ([facility]) 07/08/2020 Obesity (BMI 30-39.9) 07/08/2020 Type 2 diabetes mellitus without complication, without long-term current use of insulin ([facility]) 07/08/2020 Mucopurulent chronic bronchitis ([facility]) 12/03/2020 Polysubstance abuse ([facility]) 06/03/2021 Leukocytosis 06/03/2021 Nondependent cocaine abuse ([facility]) 06/03/2021 Hypotension 04/20/2022 Acute pain of left hip 04/24/2022 Pain of left femur 04/24/[address] 04/25/2022 Alcoholic cirrhosis of liver with ascites ([facility]) 04/28/2022 Hematoma 05/17/2023 Thrombocytopenia 05/25/2023 Venous stasis dermatitis of both lower extremities 05/25/2023 Chronic pain 05/25/2023 Plantar ulcer of right foot ([facility]) 05/25/2023 Ulcer of left lower leg (HCC) 05/25/2023 Infection of prosthetic right knee joint ([facility]) 06/09/2023 Adrenal insufficiency 06/12/2023 Foot infection 07/29/2023 Cellulitis 10/01/2023 Pancytopenia ([facility]) 10/12/2023 Chronic diastolic congestive heart failure ([facility]) 10/12/2023 Acute heart failure with preserved ejection fraction (HFpEF) ([facility]) 07/02/2024 Acute exacerbation of chronic obstructive pulmonary disease (COPD) ([facility]) 10/16/2024 Pulmonary hypertension ([facility]) 01/02/2025 Edema of both lower extremities 01/02/2025 Venous congestion 01/02/2025 MARLENE (acute kidney injury) 02/11/2025 Generalized weakness 04/02/2025 Resolved Ambulatory Problems Diagnosis Date Noted Open neck wound 01/26/2017 Toe dislocation, left, subsequent encounter 07/31/2018 Acute exacerbation of chronic obstructive pulmonary disease (COPD) ([facility]) 07/08/2020 Essential hypertension 07/08/2020 (HFpEF) heart failure with preserved ejection fraction ([facility]) 07/08/2020 COPD with acute exacerbation 06/03/2021 Acute hypoxemic respiratory failure ([facility]) 06/03/2021 Respiratory arrest ([facility]) 06/03/2021 Hypertension 06/03/2021 Acute hypercapnic respiratory failure ([facility]) 06/03/2021 Respiratory acidosis 06/03/2021 Hyperglycemia 06/03/2021 Marijuana abuse 06/03/2021 Unresponsiveness 09/30/2021 Fall 04/24/2022 Sepsis ([facility]) 04/24/2022 Bradycardia 04/27/2022 Cellulitis 03/24/2023 Traumatic hematoma 05/17/2023 Leg hematoma, right, initial encounter 05/20/2023 Venous ulcer ([facility]) 05/31/2023 Past Medical History: Diagnosis Date Anxiety Arrhythmia Arthritis Asthma COPD (chronic obstructive pulmonary disease) ([facility]) Diabetes ([facility]) Knee pain, left Leg swelling Opioid dependence ([facility]) Secondary adrenal insufficiency 04/30/2022 ED MEDICATIONS GIVEN: Medications piperacillin-tazobactam (ZOSYN) IVPB 4.5 g (premix) (0 g Intravenous Stopped 05/11/25 2140) Followed by piperacillin-tazobactam (ZOSYN) IVPB 3.375 g (premix) (3.375 g Intravenous New Bag 05/12/25 0257) vancomycin (VANCOCIN) 2000 mg in sodium chloride 0.9% 500 mL IVPB (0 mg Intravenous Stopped 05/12/25 0100) HYDROmorphone (DILAUDID) injection 0.5 mg (0.5 mg Intravenous Given 05/11/25 3662) HYDROmorphone (DILAUDID) injection 0.5 mg (0.5 mg Intravenous Given 05/12/25 5186) After reviewing the items above, I did [...] tingling to the feet. Patient admitted to [facility] admitting physicians for further management . Clinical Impression: 1. Leg pain 2. Open wound of right knee, leg, and ankle, initial encounter 3. Cellulitis, unspecified cellulitis site Disposition: ED Disposition ED Disposition Hospitalize Condition -- Comment Recommended Level of Care: Med Surg Phone call required?: Yes Camron Goyal Jr., PA-C, PA-C ED Advanced Practice Provider [facility] EMERGENCY DEPARTMENT [1] Social History Socioeconomic [...] Unknown Camron Goyal Jr., PA-C 05/12/25 0402 [facility] 05-12-2025 Emergency department Note Hourly rounding assessment completed on the patient. [x] Patient updated on plan of care [x] All comfort needs addressed [x] Patient updated on duration of visit All questions answered, patient denies further needs. Call light within reach. T [facility] 05-12-2025 Emergency department Note Pt is requesting pain meds [facility] 05-11-2025 Emergency department Note Bed: 19 Expected date: Expected time: Means of arrival: Comments: TR4 [facility] 05-11-2025 Emergency department Triage note Patient arrives via private car. Patient states he saw Dr Dukes on for right knee pain and that Dr told him to come to ED on Tuesday to be admitted for a procedure with Dr Dukes [facility] 05-09-2025 Note Addended by: RACHELLE PAIZ on: 05/09/2025 09:51 PM Modules accepted: Orders [facility] 05-09-2025 Miscellaneous Notes Addended by: RACHELLE COLLINS on: 05/09/2025 09:51 PM Modules accepted: Orders Addended by: RACHELLE COLLINS on: 05/09/2025 09:47 PM Modules accepted: Orders documented in this encounter [facility] 05-09-2025 Note Addended by: RACHELLE PAIZ on: 05/09/2025 09:47 PM Modules accepted: Orders [facility] 05-09-2025 Note Addended by: RACHELLE PAIZ on: 05/09/2025 09:47 PM Modules accepted: Orders [facility] 05-09-2025 Miscellaneous Notes Addended by: RACHELLE COLLINS on: 05/09/2025 09:47 PM Modules accepted: Orders documented in this encounter [facility] 05-09-2025 Note Carmen Gilman presents t [...] AUTHENTICATED BY DANIEL HAMMER, ON 05/09/2025 21:46:51 [facility] 05-09-2025 History of Present illness Narrative [...] at the hospital. documented in this encounter [facility] 05-09-2025 History of Present illness Narrative [...] at the hospital. documented in this encounter [facility] 04-05-2025 Plan of care note Problem: [...] Goal: Absence of pressure injury Outcome: Met [facility] 04-05-2025 Miscellaneous Notes Problem: Actual or [...] Met HMS Rapid Response Note Reason for COMMISSION CLERK Call: Unresponsiveness Objective BP (!) 181/75 Pulse [...] patient into bed, see flowsheet for vitals. COMMISSION CLERK arrived Labs ordered. Awaiting for results. Patient [...] will be completed by 04/09. Dietitian's Office [phone] Patient refusing urine drug screen. Informs nurse he does not want anything standing in his way of being admitted to the [facility]. States he is being discharged to facility tomorrow and that is the only reason he is here documented in this encounter [facility] 04-05-2025 History of Present illness Narrative Medical Transportation set up by [facility] per hospital request: Date: 04-05-25 Time: 3:00 pm Destination:[address] [address] Company: [employer] ([phone]) Special needs/equipment:Oxygen Truck Type: Ambulance Companies called:Roundtrip Transport request received and is being scheduled, trip information will follow as soon as the time is secured. [facility] PROGRESS NOTE Patient Name: Carmen Gilman : 1965 Assessment and Plan Carmen Gilman is a 59 y.o. male patient of Ani Worley CNP with history of COPD, diabetes, hypertension, dyslipidemia, generalized anxiety disorder and opioid dependence presented to [facility] on 04/02/2025 with generalized weakness and inability [...] Date of Discharge: 04/05/2025 Expected Discharge Location: [facility] Quality Measures DVT Prophylaxis: lovenox Tavera Catheter: [...] Per Dr. Jacobs, pt can discharge to [facility] today. Ambulance transport requested. CM to follow. Addendum 1355 Transport is set up for 1500 and form to floor. Treatment team updated. Ravinder, LAWRENCE, to update SNF. Pt voices no further questions/concerns/needs. D/C Disposition: Half-Way Facility Final D/C Agency/Destination: [facility] Plan A: Half-Way Facility Plan A : Post Acute Patient Choice 1: [facility] Plan A : Post Acute Patient Choice 2: [facility] Plan A : Post Acute Patient Choice 3: [facility] Plan A : Post Acute Patient Choice 4: [facility] Transportation: Transportation Type: Ambulance Discharge Disposition: ELOS Discussed with Patient / Family?: Yes Estimated Length of Stay (ELOS): 15 Precert Authorization Status: Pending HENS/PAS: PAS (DOCUMENT ID: [id number]) Reason for Choice: Patient/Family preference Regulatory Documentation: Spiritual Care Progress Note Completed by: Vinita Mitchell Person(s) Present During this Visit: Healthcare Provider Time Spent in Direct Patient Care: 5 Narrative: Attended daily medical rounds. Received updates from medical staff. Pastoral Care team will remain available to support patient and family PRN. 04/04/25 1128 Visit Background Visit With Healthcare Provider Visit By Staff Manager Photography Visit Progression Other (Please Specify) (Did not participate; clinical rounds) Visit Requested By Manager Photography Initiated Visit Source Manager Photography Initiated Visit Type IDT Rounds Visit Circumstances and Events Routine Visit Visit Length (minutes) 5 Patient's Response to Pastoral Care Other (see comment) (Did not participate; clinical rounds) Visit Planning PRN Spiritual Assessment Not assessed during visit Catholic Assessment Not assessed during this visit Family assessment provided? Not assessed during this visit Signature: Vinita Mitchell MDiv Staff Manager Photography [facility] On-Call Manager Photography /[employer] "On-Call Manager Photography" She/Her/Hers Date: 04/04/2025 Time: 10:53 AM Patient Name: Carmen Gilman Date of : 1965 Discharge Disposition Update: [facility] and [place] declined pt. Referral to [facility] per pt and CCA accepted. Precert started. CM to follow. Addendum 1315 PAS completed and precert still pending. CM to follow. D/C Disposition: Half-Way Facility Final D/C Agency/Destination: [facility] Plan A: Half-Way Facility Plan A : Post Acute Patient Choice 1: [facility] Plan A : Post Acute Patient Choice 2: [facility] Plan A : Post Acute Patient Choice 3: [facility] Plan A : Post Acute Patient Choice 4: [facility] Transportation: Discharge Disposition: Regulatory Documentation: Spiritual Care [...] With Patient Not Available Visit By Staff Manager Photography Visit Progression Attempt Visit Requested By Manager Photography Initiated Visit Source Manager Photography Initiated Visit Type Inpatient;Rounding Visit Circumstances and Events Routine Visit Visit Length (minutes) 5 Patient's Response to Pastoral Care Timing of Visit Not Optimal. Visit Rescheduled Visit Planning PRN Spiritual Assessment Not assessed during visit Catholic Assessment Not assessed during this visit Family assessment provided? Not assessed during this visit Signature: Vinita Mitchell MDiv Staff Manager Photography [facility] On-Call Manager Photography /[employer] "On-Call Manager Photography" She/Her/Hers [facility] PROGRESS NOTE Patient Name: Carmen Gilman : 1965 Assessment and Plan Carmen Gilman is a 59 y.o. male patient of Ani Worley CNP with history of COPD, diabetes, hypertension, dyslipidemia, generalized anxiety disorder and opioid dependence presented to [facility] on 04/02/2025 with generalized weakness and inability [...] Date of Discharge: 04/05/2025 Expected Discharge Location: [facility] Quality Measures DVT Prophylaxis: lovenox Tavera Catheter: [...] Visit With Healthcare Provider Visit By Staff Manager Photography Visit Progression Other (Please Specify) (Clinical Rounds; did not participate) Visit Requested By Manager Photography Initiated Visit Source Manager Photography Initiated Visit Type IDT Rounds Visit Circumstances and Events Routine Visit Visit Length (minutes) 5 Patient's Response to Pastoral Care Other (see comment) (Clinical Rounds; did not participate) Visit Planning PRN Spiritual Assessment Not assessed during visit Catholic Assessment Not assessed during this visit Family assessment provided? Not assessed during this visit Signature: Vinita Mitchell MDiv Staff Manager Photography [facility] On-Call Manager Photography /[employer] "On-Call Manager Photography" She/Her/Hers [facility] PROGRESS NOTE Patient Name: Carmen Gilman : 1965 Assessment and Plan Carmen Gilman is a 59 y.o. male patient of Ani Worley CNP with history of COPD, diabetes, hypertension, dyslipidemia, generalized anxiety disorder and opioid dependence presented to [facility] on 04/02/2025 with generalized weakness and inability [...] Date of Discharge: 04/05/2025 Expected Discharge Location: [facility] Quality Measures DVT Prophylaxis: lovenox Tavera Catheter: [...] Date of : 1965 Discharge Disposition Update: [facility] discussed discharge plan with pt while in the ED and [facility] Pt from [facility] and [facility] left [facility] to follow. Transportation: ambulance Discharge Disposition: 04/02/25 1600 Patient Information Source of Information Chart Does Patient have a PCP? Yes Interventions Half-Way Facility New Referral Pt. discharged from 02/21/25 to [facility]. Discharge diagnosis Acute metabolic encephalopathy, Right knee swelling, MARLENE 0 resolved, liver cirrhosis, T7-L 2 compressions fx., undifferentiate shock resolved. 03/19/25 discharge to home with [facility] SN, PT/OT services. During 04/02/25 RN visit pt. request transfer to SNF d/t weakness. Transported by EMS. Relays he needs "transition to the penitentiary" for admission to [facility]. 1618 Phoned [facility] LM with admissions. 1637 [facility] phoned s/w [facility] discharged elected to utilize [facility]. Plan to admit. documented in this encounter [facility] 04-05-2025 Hospital course Narrative [facility] DISCHARGE SUMMARY -- [facility] Carmen Gilman : 1965 Admitted: 04/02/2025 Discharge [...] anxiety disorder and opioid dependence presented to [facility] on 04/02/2025 with generalized weakness and inability [...] Commonly known as: PROTONIX Physician(s) Follow Up: [facility] Address: [address] [place] [id number] Servicing Counties: [place] [phone] Condition at Discharge: Stable Disposition: SNF I reviewed discharge recommendations with the patient in person. Patient instructions, including activity, were given to the patient/family at discharge. On day of discharge I saw Carmen Gilman and spent: > 30 minutes on discharge. Completed by: Kanchan Jacobs MD on 04/05/25, 11:48 AM documented in this encounter [facility] 04-05-2025 Note [facility] 04-05-2025 Hospital Discharge instructions Rachelle Yang RN - 04/05/2025 9:38 AM EDT Your estimated length of stay at [facility] is 15 days. documented in this encounter [facility] 04-05-2025 Progress note Formatting of t his note might be different from the original. HMS Rapid Response Note Reason for COMMISSION CLERK Call: Unresponsiveness Objective BP (!) 181/75 Pulse [...] therapies to prevent imminent clinical deterioration. T [facility] Work Phone: 04-04-2025 Progress note Formatting [...] patient into bed, see flowsheet for vitals. COMMISSION CLERK arrived Labs ordered. Awaiting for results. Patient transferred to room 2000 for his safety. [facility] 04-04-2025 Note [facility] 04-03-2025 Consult note Formatting of th is note is different from the original. Physical Therapy PHYSICAL THERAPY EVALUATION and TREATMENT NOTE Dx: generalized weakness, inability to ambulate, COPD, chronic R knee pain, hx of T7-L2 compression fracture PHYSICAL THERAPY EVALUATION Skilled Therapy Needs After Discharge Anticipate Resolution of Current Assessment Limitations Including: Pain, Mechanical Barriers, Social Support Are technical delivery manager Therapy Services Needed After Discharge: Yes Intensity of technical delivery manager Therapy: Up to 5 days per week Anticipated Duration of technical delivery manager Therapy: > 30 days PT DME Recommendation: [...] Standing Balance - Static: Contact guard assist Metal Fabricator Apprentice - Standing Static: wheeled walker Standing Balance - Dynamic: Minimal assist Metal Fabricator Apprentice - Standing Dynamic: wheeled walker Loss of Balance- Standing Dynamic: intermittent Strength Assessment Strength RLE RLE Overall Strength: 4-/5 Strength LLE LLE Overall Strength: 4-/5 Bed Mobility Supine to Sit: (bed mobility not observed - pt sitting EOB prior to and after session) Transfers Sit to Stand: Minimal assist (from EOB elevated surface height) Stand Pivot Transfers: Minimal assist Metal Fabricator Apprentice: wheeled walker Additional Transfer Trial 2: Yes Sit to Stand Trial 2: Moderate assist (from lower height chair) Stand Pivot Transfers Trial 2: Moderate assist Metal Fabricator Apprentice Trial 2: wheeled walker Gait/Locomotion Gait Assistance: Minimal assist (with close chair follow) Assistive Device: wheeled walker Distance: 3 Feet (then another 2ft after ~4min seated rest break) Pattern: step through, R impaired heel strike, L impaired heel strike, R decreased step length, L decreased step length, over reliance on upper extremities, forward flexed, antalgic, decreased vreonica (steps per minute) Gait Loss(es) of Balance: [...] From: Family (son in law) Level of [place] - Transfers/Ambulation/Mobility: Needs wheelchair mobility assistance (able to push self for short distance but needs assistance for longer distances) Level of [place] - ADLs: Independent Level of [place] - Homemaking: Needs assistance PHYSICAL THERAPY TREATMENT [...] Arthritis Asthma COPD (chronic obstructive pulmonary disease) ([facility]) Diabetes ([facility]) Hypertension Knee pain, left Leg swelling Opioid dependence ([facility]) Secondary adrenal insufficiency 04/30/2022 left AMA 04/30/22 [...] hospital or completion of Physical Therapy Plan. [facility] 04-03-2025 Consult note Formatting of th is note is different from the original. Physical Therapy PHYSICAL THERAPY EVALUATION and TREATMENT NOTE Dx: generalized weakness, inability to ambulate, COPD, chronic R knee pain, hx of T7-L2 compression fracture PHYSICAL THERAPY EVALUATION Skilled Therapy Needs After Discharge Anticipate Resolution of Current Assessment Limitations Including: Pain, Mechanical Barriers, Social Support Are technical delivery manager Therapy Services Needed After Discharge: Yes Intensity of technical delivery manager Therapy: Up to 5 days per week Anticipated Duration of technical delivery manager Therapy: > 30 days PT DME Recommendation: [...] Standing Balance - Static: Contact guard assist Metal Fabricator Apprentice - Standing Static: wheeled walker Standing Balance - Dynamic: Minimal assist Metal Fabricator Apprentice - Standing Dynamic: wheeled walker Loss of Balance- Standing Dynamic: intermittent Strength Assessment Strength RLE RLE Overall Strength: 4-/5 Strength LLE LLE Overall Strength: 4-/5 Bed Mobility Supine to Sit: (bed mobility not observed - pt sitting EOB prior to and after session) Transfers Sit to Stand: Minimal assist (from EOB elevated surface height) Stand Pivot Transfers: Minimal assist Metal Fabricator Apprentice: wheeled walker Additional Transfer Trial 2: Yes Sit to Stand Trial 2: Moderate assist (from lower height chair) Stand Pivot Transfers Trial 2: Moderate assist Metal Fabricator Apprentice Trial 2: wheeled walker Gait/Locomotion Gait Assistance: [...] From: Family (son in law) Level of [place] - Transfers/Ambulation/Mobility: Needs wheelchair mobility assistance (able to push self for short distance but needs assistance for longer distances) Level of [place] - ADLs: Independent Level of [place] - Homemaking: Needs assistance PHYSICAL THERAPY TREATMENT [...] Arthritis Asthma COPD (chronic obstructive pulmonary disease) ([facility]) Diabetes ([facility]) Hypertension Knee pain, left Leg swelling Opioid dependence ([facility]) Secondary adrenal insufficiency 04/30/2022 left AMA 04/30/22 [...] Referral pending to [facility]. Pt from [facility] apartments with [facility] and recently left [facility]. Pt states takes cab or has friends for transportation. Pt was on subutex but does not feel it's working and states just wants some other pain meds. CM to follow. Addendum 1450 [facility] declined and further referrals pending to [facility] CM to follow. Discharge Plan: Plan A: Half-Way Facility Plan A : Post Acute Patient Choice 1: [facility] Plan A : Post Acute Patient Choice 2: [facility] Plan A : Post Acute Patient Choice 3: [facility] Plan A : Post Acute Patient Choice 4: [facility] Transportation Assessment and Background Information: Family aware [...] Caregiver Assessment: SDOH: documented in this encounter [facility] 04-03-2025 Plan of care note Physical [...] 2.) The patient is discharged from the [facility] hospital Cosigned by Shanae Nunez MD at 04/03/2025 9:01 PM EDT [facility] 04-03-2025 Consult note Associated Order (s): IP CONSULT TO CARE MANAGEMENT Date: 04/03/2025 Time: 2:52 PM Patient Name: Carmen Gliman Date of : 1965 Reason for Consult: Discharge Plan Discussion: See VCM note from 04/02/25. Pt states difficulty caring for self at home. Referral pending to [facility]. Pt from [facility] apartments with [facility] and recently left [facility]. Pt states takes cab or has friends for transportation. Pt was on subutex but does not feel it's working and states just wants some other pain meds. CM to follow. Addendum 1455 [facility] declined and further referrals pending to [facility] and [facility]. CM to follow. Discharge Plan: Plan A: Half-Way Facility Plan A : Post Acute Patient Choice 1: [facility] Plan A : Post Acute Patient Choice 2: [facility] Plan A : Post Acute Patient Choice 3: [facility] Plan A : Post Acute Patient Choice 4: [facility] Transportation Assessment and Background Information: Family aware [...] staff Assistance Needed: yes Caregiver Assessment: SDOH: [facility] 04-03-2025 Progress note Formatting of t [...] will be completed by 04/09. Dietitian's Office [phone] [facility] 04-03-2025 Note [facility] 04-02-2025 Progress note Formatting of t his note might be different from the original. Patient refusing urine drug screen. Informs nurse he does not want anything standing in his way of being admitted to the penitentiary. States he is being discharged to facility tomorrow and that is the only reason he is here [facility] 04-02-2025 History and physical note [facility] HISTORY AND PHYSICAL -- [facility] Patient Name: Carmen Gilman : 1965 MR #: [id number] Admit Date: 04/02/2025 Physicians: Ani Worley CNP (Family); No ref. provider found (Referring) Carmen Gilman is a 59 y.o. male patient of Ani Worley CNP with history of COPD, diabetes, hypertension, dyslipidemia, generalized anxiety disorder and opioid dependence presented to [facility] on 04/02/2025 with generalized weakness and inability [...] exposure: Current Smokeless Tobacco Current Types: Chew [facility] 04-02-2025 History and physical note [facility] HISTORY AND PHYSICAL -- [facility] Patient Name: Carmen Gilman : 1965 MR #: [id number] Admit Date: 04/02/2025 Physicians: Ani Worley CNP (Family); No ref. provider found (Referring) Carmen Gilman is a 59 y.o. male patient of Ani Worley CNP with history of COPD, diabetes, hypertension, dyslipidemia, generalized anxiety disorder and opioid dependence presented to [facility] on 04/02/2025 with generalized weakness and inability [...] SKIN GRAFT; Surgeon: Cecilia Gonzales DPM; Location: [facility] OR; Service: Podiatry THORACIC DUCT LIGATION 01/15/2017 [...] Current Types: Chew documented in this encounter [facility] 04-02-2025 Emergency department Note Patient given a urinal at this time. [facility] 04-02-2025 Emergency department Note Patient given [...] [facility] lives at [facility] by himself and has [...] arrival: Comments: R1 documented in this encounter [facility] 04-02-2025 Emergency department Note Patient given menu at this time [facility] 04-02-2025 Emergency department Note Hourly rounding assessment completed on the patient. [x] Patient updated on plan of care [x] All comfort needs addressed [x] Patient updated on duration of visit All questions answered, patient denies further needs. Call light within reach. [facility] 04-02-2025 Emergency department Note Hourly rounding assessment completed on the patient. [x] Patient updated on plan of care [x] All comfort needs addressed [x] Patient updated on duration of visit All questions answered, patient denies further needs. Call light within reach. [facility] 04-02-2025 Emergency department Triage note Pt came from home, brought by EMS. [facility], lives at home by himself and has not been able to get around the house more than usual the last couple days, PMHx: renal failure, HTN, COPD. Pt presents with chronic b/l knee and back pain, denies fall, reports was unable to get out of chair this morning and needs placement "I can't get around at home anymore". Pt A&OX4. [facility] 04-02-2025 Emergency department Note Bed: 40 Expected date: Expected time: Means of arrival: Comments: R1 [facility] 02-21-2025 Note [facility] 02-21-2025 Note [facility] 02-20-2025 Note [facility] 02-20-2025 Note [facility] 02-19-2025 Note [facility] 02-18-2025 Note [facility] 02-18-2025 Note [facility] 02-17-2025 Note [facility] 02-16-2025 Note [facility] 02-16-2025 Note [facility] 02-15-2025 Note [facility] 02-15-2025 Note [facility] 02-15-2025 Note [facility] 02-14-2025 Note [facility] 02[facility]14-2025 Note [facility] 02-13-2025 Note [facility] 02-13-2025 Note [facility] 02-12-2025 Note [facility] 01-04-2025 Note [facility] 01-04-2025 History of Present illness Narrative Follow up documented in this encounter [facility] 01-04-2025 History of Present illness Narrative [...] that was prescribed to him by his RETURNED GOODS SORTER due to his right knee swelling. No [...] intact. Protective sensation is diminished using the [place] Jared filament. Dermatologic: See images below Musculoskeletal: [...] Last Year: No documented in this encounter [facility] 01-02-2025 Instructions Traci Sood MA - 01/02/2025 2:07 PM EDT How to contact your Care Team: Providers: DO Jim Boudreaux III, CNP Jill Bender, PA Nurse: Margot Gallegos To reschedule office appointments call Scheduling [phone] In case of an emergency please call 911. When in need of refills please call the phone number listed above. Please include medication name, pharmacy name and specify 30 or 90 day supply Please check with your pharmacy within 24 hours of your request for refill. You must follow up as directed to continue current refills. Thank you! documented in this encounter [facility] 01-02-2025 Note Assessment & Plan: 1. [...] Arthritis Asthma COPD (chronic obstructive pulmonary disease) ([facility]) Diabetes ([facility]) Hypertension Knee pain, left Leg swelling Opioid dependence ([facility]) Secondary adrenal insufficiency 04/30/2022 left AMA 04/30/22 [...] and wheezing. En (more content not included)... [facility] 01-02-2025 History of Present illness Narrative Assessment [...] a day . naloxone (NARCAN) 4 mg/actuation [place] Administer 1 spray into one nostril for [...] No Known Allergies documented in this encounter [facility] 12-24-2024 History of Present illness Narrative Placed call to Ani Worley [facility] office to clarify referral and patient's needs in our practice. Provided fax number to send necessary documentation. documented in this encounter [facility] 12-21-2024 Katie Rogel [facility] 12-21-2024 History of Present illness Narrative [...] was tolerated well documented in this encounter [facility] 12-21-2024 History of Present illness Narrative [...] intact. Protective sensation is diminished using the [place] Jared filament. Dermatologic: See images below Musculoskeletal: [...] Last Year: No documented in this encounter [facility] 12-21-2024 Instructions Jeri Dillon RN - 12/21/2024 2:13 PM EDT Dakin wet-to-dry to the medial foot wound, 4 x 4, double layer Tubigrip on the right Tubigrip on the left Frequency: Daily Follow up: 1 week(s) documented in this encounter [facility] 11-23-2024 Note Rosa Ferreira R N 11/23/2024 3:19 PM Multi-layer Compression Wrap Procedure Performed for: Bilat legs for edema control Performed by:: Clinician haven Procedural Pain: 0 Bandage Type: Compression Compression Layers: Multi-layer Compression Product Type: Profore Regular Dressing Applied: No Extremity Location: Below Knee [facility] 11-23-2024 History of Present illness Narrative [...] 06/03/2023 Procedure: APPLICATION WOUND VAC; Surgeon: ALEXEY Rafdord DPM; Location: Main OR; Service: Podiatry Social [...] intact. Protective sensation is diminished using the [place] Jared filament. Dermatologic: See images below Musculoskeletal: [...] Last Year: No documented in this encounter [facility] 11-23-2024 Instructions Rosa Ferreira RN - 11/23/2024 2:17 PM EDT Profore bilaterally Frequency: Keep clean and dry Follow up: 1 week(s) documented in this encounter [facility] 11-23-2024 Note [facility] 11-16-2024 Note [facility] 11-09-2024 Note [facility] 10-24-2024 History of Present illness [...] w/ HHC on discharge. CM to follow. [facility] PROGRESS NOTE Assessment and Plan Carmen Gilman [...] Patient is wanting to be discharged to [facility], altho he reports that he feels worse [...] skin breakdown Psych: normal mood and affect [facility] PROGRESS NOTE Assessment and Plan Carmen Gilman [...] in Direct Patient Care: 5 Narrative: This insurance biller attended daily medical rounds. Received updates from medical staff. Pastoral Care team will remain available to support patient and family PRN. 10/22/24 1130 Visit Background Visit With Healthcare Provider Visit By Staff Manager Photography Visit Progression Other (Please Specify) (Did not participate; clincial rounds) Visit Requested By Manager Photography Initiated Visit Source Manager Photography Initiated Visit Type IDT Rounds Visit Circumstances and Events Routine Visit Visit Length (minutes) 5 Patient's Response to Pastoral Care Other (see comment) (Did not participate; clincial rounds) Visit Planning PRN Spiritual Assessment Not assessed during visit Catholic Assessment Not assessed during this visit Family assessment provided? Not assessed during this visit Signature: Vinita Mitchell MDiv Staff Manager Photography [facility] On-Call Manager Photography /Guicho "On-Call Manager Photography" She/Her/Hers Care Management Progress Note Date: 10/22/2024 [...] wt gain recently per records. 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 Difficulty Chewing or Swallowing: No Fluid Status [...] Home Medications Reviewed: Yes Nutrient Depleting Medications: FIRMWARE TEST ENGINEER: lasix, protonix, prednisone Scheduled Meds: ammonium lactate [...] Inpatient Progress Note 10/22/2024 ALEXEY Radford DPM [facility] Patient: Carmen Gilman Date of : 1965 (59 y.o.) PCP: Ani Worley, RETURNED GOODS SORTER ASSESSMENT Bilateral lower extremity venous stasis with [...] care needs per inpatient cm. [facility] agency: Pending / Accepted (if [facility], include region) Accepted- [facility] (orders) created for the following services: [or waiting for ____ (i.e wound care)] Yes- SN,PT,OT,TUFTING MACHINE FIXER Verify demographics (residential address) [address] [place] [address] What is the primary number to reach you? [phone] Following physician will be: (list first name/last name) Ani Worley CNP Do you have a caregiver and/or teachable caregiver (list relationship, name & phone #)? Lives alone with support from family members Estimated Discharge Date (NATI): 10/19 [facility] PROGRESS NOTE Assessment and Plan Carmen Gilman [...] Inpatient Progress Note 10/21/2024 ALEXEY Radford DPM [facility] Patient: Carmen Gilman Date of : 1965 (59 y.o.) PCP: Ani Worley, RETURNED GOODS SORTER ASSESSMENT Bilateral lower extremity venous stasis with [...] 5/5. Right midfoot collapse without rocker-bottom morphology [facility] PROGRESS NOTE Assessment and Plan Carmen Gilman [...] Inpatient Progress Note 10/20/2024 ALEXEY Radford, DPM [facility] Patient: Carmen Gilman Date of : 1965 (59 y.o.) PCP: Ani Worley, RETURNED GOODS SORTER ASSESSMENT Bilateral lower extremity venous stasis with [...] 5/5. Right midfoot collapse without rocker-bottom morphology [facility] PROGRESS NOTE Assessment and Plan Carmen Gilman [...] pt likely ready for dc on Tuesday. [facility] has been set up. Stella, LAWRENCE, aware to send waiver referral. CM to follow. Spiritual Care Progress Note Completed by: Vinita Mitchell Person(s) Present During this Visit: Patient Time Spent in Direct Patient Care: 15 Narrative: Follow-up visit per pt request. Carmen shared a little more about his health and requested a prayer for healing. He cites a strong Yarsani gerri and prefers to pray in Willis' name. This insurance biller provided emotional support and prayer as requested. Visit was brief as Carmen was expecting visitors. This insurance biller provided information about Pastoral Care services and how to contact a insurance biller. Pastoral Care team will remain available to support patient and family PRN. 10/19/24 0846 Visit Background Visit With Patient Visit By Staff Manager Photography Visit Progression Follow-Up Visit Requested By Manager Photography Initiated Visit Source Manager Photography Initiated Visit Type Inpatient;Patient Request Visit Circumstances and Events Routine Visit Visit Length (minutes) 15 Patient's Response to Pastoral Care Appeared to be well-engaged;Expressed Gratitude for Visit Visit Planning PRN;Pt aware to contact Manager Photography as needed Spiritual Assessment Assessed during this visit Catholic Assessment Assessed during this visit Family assessment provided? Not assessed during this visit Patient Spiritual Needs Assessment Sources of Connection Other (see comment) (Family) Belief Practices Prayer;Experience of Amna/Divine Favor Image of the Divine Personal / Present;Guide Role of the Divine in Pt's Illness Divine is Source of Support Spiritual Wellness Activies and Resources Prayer;Catholic/Philosophic Meaning-Making Spiritual Issues / Opportunities Seek Healing/Wholeness Expressed / Stated Feelings Hopeful Attitude Toward Illness Fighting Spirit Coping Mechanisms Family Support;Trust in God/Higher Power;Prayer/Spiritual Practices Spiritual Diagnosis Spiritual Support and Connection Facilitated Interventions Active Listening;Explored thoughts/feelings associated with current hospitalization;Prayer;Patient's Experience Spiritual/Emotional Outcomes Appreciative;Gratitude Spiritual Plan of Care Continue Healing Process;Receive Spiritual Support;Receive Prayer Patient Catholic Needs Assessment Catholic Connection Not Discussed Catholic Home Yarsani Catholic Resources Prayer;Hope/Trust in God;Catholic Gerri Catholic Rituals Prayer Expressed Outcome Expressed Gratitude Signature: Vinita Mitchell MDiv Staff Manager Photography [facility] On-Call Manager Photography /Guicho "On-Call Manager Photography" She/Her/Hers 10/19/2024 7:26 am- This RN will continue to follow for discharge planning. [facility] agency: Pending / Accepted (if [facility], include region) Accepted- [place] (orders) created for the following services: [or waiting for ____ (i.e wound care)] Yes- SN,PT,OT,TUFTING MACHINE FIXER Verify demographics (residential address) [address] [place] [phone] What is the primary number to reach you? [phone] Following physician will be: (list first name/last name) Ani Worley CNP Do you have a caregiver and/or teachable caregiver (list relationship, name & phone #)? Lives alone with support from family members Estimated Discharge Date (NATI): 10/19 Images from the original note were not included. Podiatry Inpatient Progress Note 10/18/2024 Quyen Franco CNP [facility] Patient: Carmen Gilman Date of : [...] to get some rest and asked this insurance biller to try again tomorrow. Visit rescheduled for patient and/or family convenience and pastoral care availability.Pastoral Care team will remain available to support patient and family PRN. 10/18/24 1346 Visit Background Visit With Patient Not Available Visit By Staff Manager Photography Visit Progression Attempt Visit Requested By Manager Photography Initiated Visit Source Manager Photography Initiated Visit Type Inpatient;Rounding Visit Circumstances and Events Routine Visit Visit Length (minutes) 5 Patient's Response to Pastoral Care Timing of Visit Not Optimal. Visit Rescheduled Visit Planning PRN Spiritual Assessment Not assessed during visit Catholic Assessment Not assessed during this visit Family assessment provided? Not assessed during this visit Signature: Vinita Mitchell MDiv Staff Manager Photography [facility] On-Call Manager Photography /Guicho "On-Call Manager Photography" She/Her/Hers [facility] PROGRESS NOTE Assessment and Plan Carmen Gilman [...] in Direct Patient Care: 5 Narrative: This insurance biller attended daily medical rounds. Received updates from medical staff. Pastoral Care team will remain available to support patient and family PRN. 10/18/24 1140 Visit Background Visit With Healthcare Provider Visit By Staff Manager Photography Visit Progression Other (Please Specify) (Did not participate; clinical rounds) Visit Requested By Manager Photography Initiated Visit Source Manager Photography Initiated Visit Type IDT Rounds Visit Circumstances and Events Routine Visit Visit Length (minutes) 5 Patient's Response to Pastoral Care Other (see comment) (Did not participate; clinical rounds) Visit Planning PRN Spiritual Assessment Not assessed during visit Catholic Assessment Not assessed during this visit Family assessment provided? Not assessed during this visit Signature: Vinita Mitchell MDiv Staff Manager Photography [facility] On-Call Manager Photography /Vocera "On-Call Manager Photography" She/Her/Hers Spiritual Care Progress Note Completed by: Vinita Mitchell Person(s) Present During this Visit: Patient Time Spent in Direct Patient Care: 15 Narrative: This insurance biller visited the pt., Carmen, while rounding. He is known to this insurance biller from previous hospitalizations. Reintroduced self and role. Carmen shared that he is trying to improve his health for his family. He is thankful to God for the improvements he has made in his health. He asked this insurance biller to visit this afternoon if possible. This insurance biller provided empathetic listening. Pastoral Care to follow up. This insurance biller provided information about Pastoral Care services and how to contact a insurance biller. 10/18/24 1028 Visit Background Visit With Patient Visit By Staff Manager Photography Visit Progression Introduction Visit Requested By Manager Photography Initiated Visit Source Manager Photography Initiated Visit Type Inpatient;Rounding Visit Circumstances and Events Routine Visit Visit Length (minutes) 15 Patient's Response to Pastoral Care Appeared to be well-engaged;Expressed Gratitude for Visit;Requested Follow-up Visit Visit Planning PRN;Pt aware to contact Manager Photography as needed Spiritual Assessment Not assessed during visit Catholic Assessment Not assessed during this visit Family assessment provided? Not assessed during this visit Signature: Vinita Mitchell MDiv Staff [facility] On-Call Manager Photography /Vocera "On-Call Manager Photography" She/Her/Hers [facility] PROGRESS NOTE Assessment and Plan Carmen Gilman [...] affect NEUROSURGERY PROGRESS NOTE: Carmen Gilman 1965 [id number] Assessment/Plan: 59y male with multiple underlying medical [...] in Direct Patient Care: 5 Narrative: This insurance biller attended daily medical rounds. Received updates from medical staff. Pastoral Care team will remain available to support patient and family PRN. 10/17/24 1137 Visit Background Visit With Healthcare Provider Visit By Staff Manager Photography Visit Progression Other (Please Specify) (Did not participate; clinical rounds) Visit Requested By Manager Photography Initiated Visit Source Manager Photography Initiated Visit Type IDT Rounds Visit Circumstances and Events Routine Visit Visit Length (minutes) 5 Patient's Response to Pastoral Care Other (see comment) (Did not participate; clinical rounds) Visit Planning PRN Spiritual Assessment Not assessed during visit Catholic Assessment Not assessed during this visit Family assessment provided? Not assessed during this visit Signature: Vinita Mitchell MDiv Staff Manager Photography [facility] On-Call Manager Photography /Sameerera "On-Call Manager Photography" She/Her/Hers Trauma will sign off at this time. [facility] DAILY PROGRESS NOTE MECHANISM: [...] 10/15/2024 ALKPHOS 89 10/15/2024 BILITOT 0.7 10/15/2024 [facility] DAILY PROGRESS NOTE MECHANISM: [...] reviewed the [facility] note, labs, studies, and packaging sales consultant notes. Furthermore even though we both were involved with evaluating this patient today, my participation and time spent has exceeded 51% of the total time spent. I have reviewed and agree with the documented history, exam, and plan of care, with the following additions and corrections: Today: Carmen Gilman is a 59 y.o. adult with morbid obesity presenting with T7 fx following [facility] fall. 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 Vit D 11, will start supp. CBC chem 7 today personally reviewed with chronic anemia, chronic thrombocytopenia, and development today of pancytopenia. PT has been admitted to [facility]. Will f/u nsg recs, MRI pending. Therapies pending results. Cont care per primary team, thank you for this consult. A comprehensive review of systems was performed with the pt and all systems reviewed were negative except those listed in the HPI. Hardy Luna MD, FACS, DABS, DABA Trauma, Acute Care Surgery, Surgical Critical Care, and Neurocritical Care documented in this encounter [facility] 10-24-2024 Hospital course Narrative Images from the original note were not included. [facility] DISCHARGE SUMMARY -- [facility] Carmen Gilman Admitted: 10/15/2024 Discharge Date: 10/24/24 [...] by mouth daily . naloxone 4 mg/actuation [place] Commonly known as: NARCAN Administer 1 spray [...] - NOT IN LIST Sammy Esteves MD [address] [place], [place] [id number] Follow up Call to schedule a 4 week follow up visit with repeat XRAY [facility] Address: N/a Servicing [facility]: [facility] [phone] Condition at Discharge: Stable Disposition: Home I reviewed discharge recommendations with the patient in person. Patient instructions, including activity, were given to the patient/family at discharge. On day of discharge I saw Carmen Gilman and spent: > 30 minutes on discharge. Completed by: Cameron Vargas MD on 10/24/24, 1:07 PM documented in this encounter [facility] 10-24-2024 Plan of care note Problem: [...] Absence of physical injury Outcome: Partially Met [facility] 10-24-2024 Miscellaneous Notes Problem: Actual or [...] this RN enters patient room to see ETDDY bandages on the floor. Patient stated that [...] or call our 14/03 on-call number at [phone] with any questions, concerns or clinical updates. [...] legs, and arms. documented in this encounter [facility] 10-23-2024 Progress note Formatting of t his note might be different from the original. Patient left the unit with a family member in a wheelchair. Patient was advised not to leave the unit and that he needed to wear his oxygen. Patient stated he didn't care and left. [facility] 10-23-2024 Progress note Formatting of t [...] to have dressing change at this time. [facility] 10-23-2024 Note [facility] 10-23-2024 Progress note Formatting of t [...] at this time. Patient denies other needs. [facility] 10-22-2024 Progress note Formatting of t his [...] Patient denies other needs at this time. [facility] 10-22-2024 Consult note Formatting of th [...] stated he feels comfortable with donning/doffing TLSO. [facility] 10-22-2024 Consult note Formatting of th is [...] this time, order discontinued at this time. [facility] 10-22-2024 Consult note Formatting of th [...] TO HOME HEALTH HUB 10/17/2024 3:41 pm- [facility] consult received to set up home health care services. [facility] agency: Pending / Accepted (if [facility], include region) Accepted- [place] (orders) created for the following services: [or waiting for ____ (i.e wound care)] Yes- SN,PT,OT,TUFTING MACHINE FIXER Verify demographics (residential address) [address] [place] [phone] What is the primary number to reach you? [phone] Following physician will be: (list first name/last [...] 4x daily ipratropium-albuteroL 3 mL Inhalation Q4H [facility] lidocaine 1 patch Transdermal Daily melatonin 10 [...] Final Result by Fransisco Camilo MD (10/15/2024 231) 1. Suboptimal pulmonary artery opacification, but no [...] Admitting Dx: COPD, resp failure PCP: Meir METALLURGICAL LAB TECHNICIAN Specialists: none Preferred Pharmacy: [facility] Insurance: [facility] Prescription Benefit: yes, pt states no concerns obtaining/affording meds but states is not compliant with meds at home. Pt states 'I don't what I should be taking, I need a nurse to come in and help me with that.' LW/HPOA: does not have LNOK: Calin Gilman, brother Living Arrangements: Pt lives alone in [facility] independent living apartments with no steps and states needs assistance with all ADL's. Transportation: Pt drives self and states no concerns with transportation. DME/HHC/SNF: Pt states no need for further DME. Pt states has had HHC in the past and would like referral for discharge. Pt states no preference on HHC agency and declines list at this time. Order to [facility] hub for SN/PT/OT/aide. Pt has been to [facility] and [facility] in the past and adamantly insists several times that he will not go back to a SNF. Pt states is in contact with a CM but unsure of their name/program. Pt is too young for [facility] so call to [place] waiver program, [facility], and they state pt was denied for [facility] care [facility] in September. Pt is on disability. [...] IP CONSULT TO NEUROSURGERY Neurosurgery Inpatient Consult [facility] 10/16/2024 Radames Hendrickson PA-C [facility] Patient: Carmen Gilman Date of : 1965 (59 y.o.) Referring Provider: Refer to consult order in electronic medical record PCP: Delany, Ani M, RETURNED GOODS SORTER ASSESSMENT/PLAN: MRI T spine reviewed, other images [...] Arthritis, Asthma, COPD (chronic obstructive pulmonary disease) ([facility]), Diabetes ([facility]), Hypertension, Opioid dependence ([facility]), and Secondary adrenal insufficiency (04/30/2022). Past Surgical [...] Jamar Escobedo MD naloxone (NARCAN) 4 mg/actuation [place] Administer 1 spray into one nostril for [...] 5 5 Elbow Extension (Triceps) 5 5 Mental Health Specialist (Flexor Digitorum) 5 5 Finger Abduction (Interossei) [...] Results Component Value Date NA 137 10/16/2024 [id number] 56.4 (H) 04/25/2022 INR 1.1 09/19/2023 HGB [...] abnormal signal in the thoracic spinal cord. [facility] Workstation ID: [id number] CT Thoracic And [...] in the remaining thoracic and lumbar spine. [facility] Workstation ID: [id number] CTA Pulm Art and [...] repeat radiographs are recommended in 7-10 days. [facility] Workstation ID: [id number] XR Tibia Fibula Right 2 Views Final Result 1. No acute fracture or dislocation of the pelvis or either tibia or fibula is seen. If there is concern for an occult injury of the pelvis, cross-sectional imaging is recommended. Otherwise, if pain persists, repeat radiographs are recommended in 7-10 days. [facility] Workstation ID: [id number] XR Pelvis 1 View (Standard) Final Result 1. No acute fracture or dislocation of the pelvis or either tibia or fibula is seen. If there is concern for an occult injury of the pelvis, cross-sectional imaging is recommended. Otherwise, if pain persists, repeat radiographs are recommended in 7-10 days. [facility] Workstation ID: [id number] XR Chest 1 View Final Result No acute cardiopulmonary process. Workstation ID: [id number] Cosigned by Mala Gardner MD at 10/16/2024 10:45 PM EST Associated attestation - Mala Gardner MD - 10/16/2024 10:45 PM EST I agree with the Nurse practitioner's/Physician hotel assistant general manager's note and plan by Markie Hendrickson PA-C [...] Associated Order(s): IP CONSULT TO TRAUMA SURGERY [facility] & [facility] SURGICAL HISTORY & PHYSICAL/CONSULTATION [...] dependence, hypertension, anxiety, asthma who presented to [facility] with a chief complaint of shortness of [...] a day . naloxone (NARCAN) 4 mg/actuation [place] Administer 1 spray into one nostril for [...] 2:26 AM EST documented in this encounter [facility] 10-22-2024 Plan of care note Problem: [...] Absence of physical injury Outcome: Partially Met [facility] 10-21-20[facility] 10-21-2024 Plan of care note Problem: [...] level of psychosocial functioning Outcome: Partially Met [facility] 10-20-2024 Note [facility] 10-20-2024 Note [facility] 10-20-2024 Progress note Formatting of t [...] kerlix. Patient educated about risk of infection. [facility] 10-19-2024 Plan of care note Problem: Actual [...] level of psychosocial functioning Outcome: Partially Met [facility] 10-19-2024 Note Formatting of this n ote might be different from the original. PHYSICAL THERAPY VISIT VARIANCE NOTE Attempted to see patient at this time, but unable secondary to: Patient Unavailable (Patient politely stated he is waiting on provider for debridement of leg). Will follow up as appropriate. [facility] 10-19-2024 Note Formatting of this n ote might be different from the original. OCCUPATIONAL THERAPY VISIT VARIANCE NOTE Attempted to see patient at this time, but unable secondary to: Patient Unavailable (plans for debridement in the next hour). Will follow up as appropriate. [facility] 10-19-2024 Note [facility] 10-19-2024 Procedure note Procedure(s): GA DEBRIDEMENT SUBCUTANEOUS TISSUE 1ST 20 SQ CM/<; GA DEBRIDEMENT SUBCUTANEOUS TISSUE EA ADDL 20 SQ CM Podiatry Inpatient Progress Note Cecilia Gonzales DPM [facility] Patient: Carmen Gilman Date of : 1965 (59 y.o.) PCP: Ani Worley, RETURNED GOODS SORTER ASSESSMENT Bilateral lower extremity venous stasis Left [...] 5/5. Right midfoot collapse without rocker-bottom morphology [employer] Work Phone: 10-19-2024 Procedure note Procedure(s): GA DEBRIDEMENT SUBCUTANEOUS TISSUE 1ST 20 SQ CM/<; GA DEBRIDEMENT SUBCUTANEOUS TISSUE EA ADDL 20 SQ CM Podiatry Inpatient Progress Note Cecilia Gonzales DPM [facility] Patient: Carmen Gilman Date of : 1965 (59 y.o.) PCP: Ani Worley, RETURNED [employer] SORTER ASSESSMENT Bilateral lower extremity venous stasis Left [...] without rocker-bottom morphology documented in this encounter [facility] 10-19-2024 Note [facility] 10-19-2024 Hospital Discharge instructions Quyen Franco [...] be sent through Care Everywhere.Compression Fracture: Spine (Algerian)documented in this encounter [facility] 10-19-2024 Progress note Formatting of t [...] planned for 1 PM. Primary nurse aware. [facility] 10-19-2024 Plan of care note Problem: Actual [...] level of psychosocial functioning Outcome: Partially Met [facility] 10-18-2024 Note [facility] 10-18-2024 Note Formatting of this n ote might be different from the original. PHYSICAL THERAPY VISIT VARIANCE NOTE Attempted to see patient at this time, but unable secondary to: Patient Unavailable (Patient politely requested PT return later today as he is trying to take a nap. Stated he has already walked in the hallway). Will follow up as appropriate. [facility] 10-18-2024 Progress note Formatting of t his note might be different from the original. Pt asked for assistance with his dressing changed previously. Pt sleeping at this time. Will check back on pt. [facility] 10-18-2024 Progress note Formatting of t his [...] or call our 14/03 on-call number at [phone] with any questions, concerns or clinical updates. [facility] 10-18-2024 Note [facility] 10-18-2024 Progress note Formatting of t his note might be different from the original. Patient ambulating in gilman without assistance or TSLO brace. Educated patient on need to wear brace while out of bed, patient refusing at this time. Patient assisted back to room, sitting in chair. [facility] 10-18-2024 Plan of care note Problem: Actual [...] level of psychosocial functioning Outcome: Partially Met [facility] 10-17-2024 Consult note Associated Order (s): IP CONSULT TO [facility] 10/17/2024 3:41 pm- [facility] consult received to set up home health care services. Name of [facility] agency: Pending / Accepted (if [facility], include region) Accepted- [facility] (orders) created for the following services: [or waiting for ____ (i.e wound care)] Yes- SN,PT,OT,TUFTING MACHINE FIXER Verify demographics (residential address) [address] [place], [place] [id number] What is the primary number to reach you? [phone] Following physician will be: (list first name/last name) Ani Worley, RETURNED [employer] SORTER Do you have a caregiver and/or teachable caregiver (list relationship, name & phone #)? Lives alone with support from family members Estimated Discharge Date (NATI): 10/19 If discharge needs change, please reach out to liaison assigned on treatment team as hub is not notified of new consults once team is following. Thank you. [facility] 10-17-2024 [facility]24 Note [facility] 10-17-2024 Consult note Associated Order (s): [...] Final Result by Enrique Carrasco MD (10/16/2024 0359) 1. Compression fracture at T7 appears to [...] Final Result by Fransisco Camilo MD (10/15/2024 1731) 1. Suboptimal pulmonary artery opacification, but no [...] Gonzales DPM, MS Podiatric Physician & Surgeon [facility] 10-17-2024 Consult note Associated Order (s): [...] Admitting Dx: COPD, resp failure PCP: Meir METALLURGICAL LAB TECHNICIAN Specialists: none Preferred Pharmacy: [facility] Prescription Benefit: yes, pt states no concerns obtaining/affording meds but states is not compliant with meds at home. Pt states 'I don't what I should be taking, I need a nurse to come in and help me with that.' LW/HPOA: does not have LNOK: Calin Gilman, brother Living Arrangements: Pt lives alone in [facility] independent living apartments with no steps and states needs assistance with all ADL's. Transportation: Pt drives self and states no concerns with transportation. DME/HHC/SNF: Pt states no need for further DME. Pt states has had HHC in the past and would like referral for discharge. Pt states no preference on HHC agency and declines list at this time. Order to [facility] hub for SN/PT/OT/aide. Pt has been to [facility] and [facility] in the past and adamantly insists several times that he will not go back to a SNF. Pt states is in contact with a CM but unsure of their name/program. Pt is too young for [facility] so call to [place] waiver program, [employer], and they state pt was denied for [facility] care waiver [facility] in September. Pt is on disability. [...] routine activities due to chronic pain:: Yes [facility] 10-17-2024 Note [facility] 10-17-2024 Plan of care note [...] level of psychosocial functioning Outcome: Partially Met [facility] 10-16-2024 Consult note Associated Order (s): IP CONSULT TO NEUROSURGERY Neurosurgery Inpatient Consult [facility] 10/16/2024 Radames Hendrickson PA-C [facility] Patient: Carmen Gilman Date of : [...] Jamar Escobedo MD naloxone (NARCAN) 4 mg/actuation [place] Administer 1 spray into one nostril for [...] 5 5 Elbow Extension (Triceps) 5 5 Mental Health Specialist (Flexor Digitorum) 5 5 Finger Abduction (Interossei) [...] Results Component Value Date NA 137 10/16/2024 [id number] 56.4 (H) 04/25/2022 INR 1.1 09/19/2023 HGB [...] abnormal signal in the thoracic spinal cord. [facility] Workstation ID: [id number] CT Thoracic And [...] in the remaining thoracic and lumbar spine. [facility] Workstation ID: [id number] CTA Pulm Art and [...] repeat radiographs are recommended in 7-10 days. [facility] Workstation ID: [id number] XR Tibia Fibula Right 2 Views Final Result 1. No acute fracture or dislocation of the pelvis or either tibia or fibula is seen. If there is concern for an occult injury of the pelvis, cross-sectional imaging is recommended. Otherwise, if pain persists, repeat radiographs are recommended in 7-10 days. [facility] Workstation ID: [id number] XR Pelvis 1 View (Standard) Final Result 1. No acute fracture or dislocation of the pelvis or either tibia or fibula is seen. If there is concern for an occult injury of the pelvis, cross-sectional imaging is recommended. Otherwise, if pain persists, repeat radiographs are recommended in 7-10 days. [facility] Workstation ID: [id number] XR Chest 1 View Final Result No acute cardiopulmonary process. Workstation ID: [id number] Cosigned by Mala Gardner MD at 10/16/2024 10:45 PM EST Associated attestation - Mala Gardner MD - 10/16/2024 10:45 PM EST I agree with the Nurse practitioner's/Physician hotel assistant general manager's note and plan by Markie Hendrickson PA-C [...] upright x-rays in the brace for reference. [facility] Work Phone: 10-16-2024 Progress note Formatting [...] cardiac monitoring, states "my heart is fine". [facility] 10-16-2024 Plan of care note Problem: [...] level of psychosocial functioning Outcome: Partially Met [facility] 10-16-2024 Progress note Formatting of t [...] Monica RN checked B/L legs, and arms. [facility] 10-16-2024 Emergency department Note Report called to floor. [facility] 10-16-2024 Emergency department Note Report called [...] time. Call light is in reach. Trauma METALLURGICAL LAB TECHNICIAN Mery at the bedside for consult. Pt [...] arrival to room, we noted that pt's air sampling and monitoring is laying on the floor by the bed. Pt states that it fell onto his head. Small abrasion noted between patient's eyebrows, no bleeding noted at this time. Pt A&Ox4, resps even and unlabored, and no acute distress noted at this time. slot machine floor person Shelby and Dr Lozano notified. Will observe patient for [address] Lozano. Pt back from CT Pt refused toradol, stating "I want my tramadol or subutex". This RN will notify Dr Lozano. Pt back from CT and refusing to have BP cuff on. Pt refused CT; Dr Lozano aware. Pt to xray Associated Order(s): Critical Care; ECG 12 Lead (Now) [facility] ATTENDING NOTE: NAME: Carmen Gilman CSN: [id number] 59 y.o. PCP: Ani Worley CNP History: [...] a day . naloxone (NARCAN) 4 mg/actuation [place] Administer 1 spray into one nostril for [...] All other components within normal limits Narrative: [facility] has implemented the eGFR [...] Procedure Abnormality Status --------- ------ CBC Auto Differential[[id number]] Abnormal Final result CBC and Diff Morphology[[id number]] Abnormal Final result Please view results for [...] in the remaining thoracic and lumbar spine. [facility] Workstation ID: [id number] CTA Pulm Art and [...] repeat radiographs are recommended in 7-[address] [facility] Workstation ID: [id number] XR Tibia Fibula Right 2 Views Preliminary Result 1. No acute fracture or dislocation of the pelvis or either tibia or fibula is seen. If there is concern for an occult injury of the pelvis, cross-sectional imaging is recommended. Otherwise, if pain persists, repeat radiographs are recommended in 7-[address] [facility] Workstation ID: [id number] XR Pelvis 1 View (Standard) Preliminary Result 1. No acute fracture or dislocation of the pelvis or either tibia or fibula is seen. If there is concern for an occult injury of the pelvis, cross-sectional imaging is recommended. Otherwise, if pain persists, repeat radiographs are recommended in 7-[address] [facility] Workstation ID: [id number] XR Chest 1 View [...] physician Rhythm: sinus rhythm BPM: 92 normal GA interval normal QRS interval Comments: Normal [place] not prolonged QRS not prolonged Qt<1/2 rr [...] Compression fracture of T7 vertebra, initial encounter ([facility]) Disposition: ED Disposition None Jose Lozano MD, MD ED Attending Physician [facility] Jose Lozano MD 10/15/24 6989 Pt to ED with c/c of shortness of breath. Onset all day worsening to now. PT wheezing, speaking in 2-3 words sentence. EMS reported patient was 75% on RA, increase to 98% on 2 lpm. Pt was given duoneb treatment via EMS. Pt also just finished antibiotics for leg infection. documented in this encounter [facility] 10-16-2024 Note [facility] 10-16-2024 Emergency department Note Bed: 47 Expected date: Expected time: Means of arrival: Comments: 19 [facility] 10-16-2024 Emergency department Note Hourly rounding assessment completed on the patient. [x] Patient updated on plan of care [x] All comfort needs addressed [x] Patient updated on duration of visit All questions answered, patient denies further needs. Call light within reach. [facility] 10-16-2024 Emergency department Note Hourly rounding assessment completed on the patient. [x] Patient updated on plan of care [x] All comfort needs addressed [x] Patient updated on duration of visit All questions answered, patient denies further needs. Call light within reach. [facility] 10-16-2024 Emergency department Note Hourly rounding assessment completed on the patient. [x] Patient updated on plan of care [x] All comfort needs addressed [x] Patient updated on duration of visit All questions answered, patient denies further needs. Call light within reach. [facility] 10-16-2024 History and physical note [facility] HISTORY AND PHYSICAL -- [facility] Patient Name: Carmen Gilman : 1965 MR #: [id number] Admit Date: 10/15/2024 Physicians: Ani Worley CNP [...] normal coloration Psych: normal mood and affect [facility] 10-16-2024 History and physical note [facility] HISTORY AND PHYSICAL -- [facility] Patient Name: Carmen Gilman : 1965 MR #: [id number] Admit Date: 10/15/2024 Physicians: Ani Worley CNP [...] mood and affect documented in this encounter [facility] 10-15-2024 Emergency department Note Hourly rounding assessment completed on the patient. [x] Patient updated on plan of care [x] All comfort needs addressed [x] Patient updated on duration of visit All questions answered, patient denies further needs. Call light within reach. [facility] 10-15-2024 Emergency department Note Hourly rounding assessment completed on the patient. [x] Patient updated on plan of care [x] All comfort needs addressed [x] Patient updated on duration of visit All questions answered, patient denies further needs. Call light within reach. [facility] 10-15-2024 Consult note Associated Order (s): IP CONSULT TO TRAUMA SURGERY [facility]MA & [facility] SURGICAL HISTORY & PHYSICAL/CONSULTATION [...] dependence, hypertension, anxiety, asthma who presented to [facility] with a chief complaint of shortness of [...] a day . naloxone (NARCAN) 4 mg/actuation [place] Administer 1 spray into one nostril for [...] Maldonado MD at 10/16/2024 2:26 AM EST [facility] 10-15-2024 Emergency department Note Hourly rounding assessment [...] this time. Call light is in reach. [facility] 10-15-2024 Emergency department Note Trauma METALLURGICAL LAB TECHNICIAN Makesuri at the bedside for consult. [facility] 10-15-2024 Emergency department Note Pt still refusing to wear BP cuff even for a moment to check his BP [facility] 10-15-2024 Emergency department Note Hourly rounding assessment completed on the patient. [x] Patient updated on plan of care [x] All comfort needs addressed [x] Patient updated on duration of visit All questions answered, patient denies further needs. Call light within reach. [facility] 10-15-2024 Emergency department Note Pt yelling out, this RN and RN Dede to the bedside. Upon arrival to room, we noted that pt's air sampling and monitoring is laying on the floor by the bed. Pt states that it fell onto his head. Small abrasion noted between patient's eyebrows, no bleeding noted at this time. Pt A&Ox4, resps even and unlabored, and no acute distress noted at this time. slot machine floor person Mary and Dr Lozano notified. Will observe patient for [address] Lozano. [facility] 10-15-2024 Emergency department Note Pt back from CT [facility] 10-15-2024 Emergency department Note Pt refused toradol, stating "I want my tramadol or subutex". This RN will notify Dr Lozano. [facility] 10-15-2024 Emergency department Note Pt back from CT and refusing to have BP cuff on. [facility] 10-15-2024 Emergency department Note Pt refused CT; Dr Lozano aware. [facility] 10-15-2024 Emergency department Note Pt to xray [facility] 10-15-2024 Physician Emergency department Note Associated Order(s): Critical Care; ECG 12 Lead (Now) [facility] ATTENDING NOTE: NAME: Carmen Gilman CSN: [id number] 59 y.o. PCP: Ani Worley CNP History: [...] disease) (HCC) Diabetes (HCC) Hypertension Opioid dependence ([facility]) Secondary adrenal insufficiency 04/30/2022 left AMA 04/30/22 [...] a day . naloxone (NARCAN) 4 mg/actuation [place] Administer 1 spray into one nostril for [...] All other components within normal limits Narrative: [facility] has implemented the eGFR [...] Procedure Abnormality Status --------- ------ CBC Auto Differential[[id number]] Abnormal Final result CBC and Diff Morphology[[id number]] Abnormal Final result Please view results for [...] in the remaining thoracic and lumbar spine. [facility] Workstation ID: [id number] CTA Pulm Art and [...] repeat radiographs are recommended in 7-10 days. [facility] Workstation ID: [id number] XR Tibia Fibula Right 2 Views Preliminary Result 1. No acute fracture or dislocation of the pelvis or either tibia or fibula is seen. If there is concern for an occult injury of the pelvis, cross-sectional imaging is recommended. Otherwise, if pain persists, repeat radiographs are recommended in 7-10 days. [facility] Workstation ID: [id number] XR Pelvis 1 View (Standard) Preliminary Result 1. No acute fracture or dislocation of the pelvis or either tibia or fibula is seen. If there is concern for an occult injury of the pelvis, cross-sectional imaging is recommended. Otherwise, if pain persists, repeat radiographs are recommended in 7-10 days. [facility] Workstation ID: [id number] XR Chest 1 View [...] physician Rhythm: sinus rhythm BPM: 92 normal GA interval normal QRS interval Comments: Normal [place] not prolonged QRS not prolonged Qt<1/2 rr interval No STEMI nsr ED Course / Medical Decision Making: I did personally review Cramen's past medical history, surgical history, social history, [...] Compression fracture of T7 vertebra, initial encounter ([facility]) Disposition: ED Disposition None Jose Lozano MD, MD ED Attending Physician [facility] Jose Lozano MD 10/15/24 9664 [facility] 10-15-2024 Emergency department Triage note Pt to ED with c/c of shortness of breath. Onset all day worsening to now. PT wheezing, speaking in 2-3 words sentence. EMS reported patient was 75% on RA, increase to 98% on 2 lpm. Pt was given duoneb treatment via EMS. Pt also just finished antibiotics for leg infection. [facility] 07-05-2024 History of Present illness Narrative Patient Name: Carmen Gilman Admit Date: [id number] MR #: [id number] : 1965 Physicians: Ani Worley, RETURNED GOODS SORTER (Family); No ref. provider found (Referring) Assessment: [...] BID, Christian Porter MD, 8 mg at 07/05/24 0944 ceFAZolin [...] Disp: , Rfl: naloxone (NARCAN) 4 mg/actuation [place], Administer 1 spray into one nostril for [...] excoriations Musculoskeletal: No joint swelling, non tender POLICY WRITER: Awake, and Ox3, looking depressed Wound: None but scabs of incisional scar in the right knee T[place] Catheter:None IV Access: Yes I reviewed Medications. I reviewed Labs. US Abdomen Limited Study Final Result Cirrhosis with splenomegaly. No ascites. No cholelithiasis or biliary ductal dilatation. No right hydronephrosis or nephrolithiasis. /[facility] Workstation ID: [id number] XR Knee Right 2 [...] to Current Admission?: Yes Final D/C Agency/Destination: [facility] Plan A: Home Health Care Services Discharging Transportation Plan: Discharge Plan Status: AMA Assessment and Background Information: Per HYDROPONICS WORKER, pt left AMA at this time. Miguel Ángel from [facility] updated. [facility] liaison updated. SDOH Needs Addressed: Food Insecurity, Housing Stability, Financial Resource Strain, Transportation Needs Resources Provided - Food Insecurity: Added to AVS Resources Provided - Transportation Needs: Added to AVS Resources Provided - Housing Stability: Added to AVS ATTENDING PHYSICIAN CAMERON VARGAS MD PRIMARY CARE PHYSICIAN ANI WORLEY, RODRIGUE ADMITTING PHYSICIAN CHRISTIAN PORTER MD CONSULTING PHYSICIAN [facility] Under sterile conditions with patient's consent, [...] for fluid cell analysis. D 07/05/2024 12:12 [id number] 07/05/2024 12:42 MCB/MODL ATTENDING PHYSICIAN CAMERON VARGAS MD PRIMARY CARE PHYSICIAN ANI WORLEY, RODRIGUE ADMITTING PHYSICIAN CHRISTIAN PORTER MD CONSULTING PHYSICIAN [facility] Carmen's shoulder exams are completely benign. CAT scan, I do not understand the relevance of the CAT scan, but at this point in time, the shoulder exams are completely benign. We will proceed forward with aspiration on 07/05/2024 of his right knee. This is a chronic situation. D 07/04/2024 17:59 [id number] 07/04/2024 18:17 MCB/MODL Patient Name: Carmen Gilman Admit Date: [id number] MR #: [id number] : 1965 Physicians: Ani Worley CNP (Family); [...] excoriations Musculoskeletal: No joint swelling, non tender POLICY WRITER: Awake, and Ox3, looking depressed Wound: None but scabs of incisional scar in the right knee Tavera Catheter:None IV Access: Yes I reviewed Medications. I reviewed Labs. US Abdomen Limited Study Preliminary Result Cirrhosis with splenomegaly. No ascites. No cholelithiasis or biliary ductal dilatation. No right hydronephrosis or nephrolithiasis. /[facility] Workstation ID: [id number] XR Knee Right 2 [...] to Current Admission?: Yes Final D/C Agency/Destination: [facility] Health Plan A: Home Health Care Services [...] Provided - Housing Stability: Added to AVS [facility] PROGRESS NOTE Assessment and Plan Carmen Gilman is a 58 y.o. adult patient of Ani Worley CNP with history of anxiety, arrhythmia, asthma, COPD, hypertension, opioid dependence, secondary adrenal insufficiency presented to [facility] on 07/02/2024 with shortness of breath. 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 [facility] accepted referral. AVS updated. ID currently following. If OPAT needed, will need to secure infusion pharmacy, SOC date, and place new [facility]. [facility] plan complete or pending? (List items pending) COMPLETE Name of [facility] agency: Pending / Accepted [facility] / [facility] ACCEPTED Referrals sent to: (names of agencies) Please be advised that external agencies have 24 hours to respond to referrals. [facility] Infusion pharmacy: (name) Referral pending or accepted? For IV, TPN, or TF: Referral order placed? Has script been sent? (Yes/no) N/A Medication / frequency N/A Line / tube N/A [facility] (orders) placed? List services For OHIP - ARHI placed? [or waiting for ____ (i.e wound care)] YES - SN, PT, OT, TUFTING MACHINE FIXER Please ensure pt/family understands skilled TUFTING MACHINE FIXER is only for assisting with personal care once or twice weekly. Verify demographics (discharge address) [address] [facility] [address] [facility] [address] What is the primary phone number? [phone] Who is your primary care physician? Ani [...] = Start of Care TCG = Teachable Data Processing Supervisor [facility] PROGRESS NOTE Assessment and Plan Carmen Gilman is a 58 y.o. adult patient of Ani Worley CNP with history of anxiety, arrhythmia, asthma, COPD, hypertension, opioid dependence, secondary adrenal insufficiency presented to [facility] on 07/02/2024 with shortness of breath. 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 I certify that based on the findings of this evaluation, which included but was not limited to the abty-dy-uwsc requirements, the following home medical equipment is medically necessary: Tub transfer bench, medically necessary to facilitate safe transfers in and out of tub. Signed by: Dre Ordonez MD on 07/05/2024 [employer] Work Phone: 07-05-2024 Miscellaneous Notes [id number]-QA-[id number] ENCOUNTER FOR HOME MEDICAL EQUIPMENT PATIENT: Carmen Gilman : 1965 Statement of Care: I certify that Carmen Gilman is under my care and that I, a Nurse Practitioner, Physician's Strategy Planning Consultant, or Resident working with me, had a njqi-bo-olwh encounter with this patient today to evaluate and discuss the need for home medical equipment. I certify that based on the findings of this evaluation, which included but was not limited to the xstz-oi-aikg requirements, the following home medical equipment is [...] importance of the monitoring. Patient still refused. [id number]-[id number]-[id number] ENCOUNTER FOR HOME MEDICAL EQUIPMENT PATIENT: Carmen Gilman : 1965 Statement of Care: I certify that Carmen Gilman is under my care and that I, a Nurse Practitioner, Physician's Strategy Planning Consultant, or Resident working with me, had a qgki-oz-vugk encounter with this patient today to evaluate and discuss the need for home medical equipment. I certify that based on the findings of this evaluation, which included but was not limited to the hbzr-yg-tgdv requirements, the following home medical equipment is [...] Outcome: Partially Met documented in this encounter [facility] 07-05-2024 Note [facility] 07-04-2024 Plan of care note Problem: [...] Goal: Effective breathing pattern Outcome: Partially Met [facility] 07-04-2024 Note [facility] 07-04-2024 Progress note Formatting of t his note might be different from the original. Patient refusing cardiac monitoring. I educated the patient about the importance of the monitoring. Patient still refused. [facility] 07-04-2024 Progress note Formatting of t his note might be different from the original. [id number]-XR-[id number] ENCOUNTER FOR HOME MEDICAL EQUIPMENT PATIENT: Carmen Gilman : 1965 Statement of Care: I certify that Carmen Gilman is under my care and that I, a Nurse Practitioner, Physician's Strategy Planning Consultant, or Resident working with me, had a yytt-nw-omny encounter with this patient today to evaluate and discuss the need for home medical equipment. I certify that based on the findings of this evaluation, which included but was not limited to the spff-xg-mbgp requirements, the following home medical equipment is medically necessary: shower chair for equipment to support patient's medical needs For safety with transfer in and out of shower Signed by: Cameron Vargas MD on 07/04/2024 [facility] 07-04-2024 Hospital course Narrative Images from the original note were not included. [facility] DISCHARGE SUMMARY -- [place] Carmen Souza Admitted: 07/02/2024 Discharge Date: 07/04/24 PCP Handoff Recommended Outpatient Testing Follow up with primary care and Ortho Results Pending At Discharge none Clinical Summary Assessment and Plan Carmen Gilman is a 58 y.o. adult patient of Ani Worley CNP with history of anxiety, arrhythmia, asthma, COPD, hypertension, opioid dependence, secondary adrenal insufficiency presented to [facility] on 07/02/2024 with shortness of breath. 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 naloxone 4 mg/actuation [place] Commonly known as: NARCAN Administer 1 spray [...] Follow Up: OTHER - NOT IN LIST [facility] Address: N/a Servicing [facility]: [facility] [phone] Condition at Discharge: Stable Disposition: HOME AMA I reviewed discharge recommendations with the patient in person. Patient instructions, including activity, were given to the patient/family at discharge. On day of discharge I saw Carmen Gilman and spent: > 30 minutes on discharge. Completed by: Cameron Vargas MD on 07/04/24, 11:02 AM documented in this encounter [facility] 07-04-2024 Progress note Formatting of t his note might be different from the original. Patient refusing IV at this time. [facility] 07-04-2024 Plan of care note Problem: [...] level of psychosocial functioning Outcome: Partially Met [facility] 07-04-2024 Progress note Formatting of t his note might be different from the original. Dr Ruby notified patient refused further IV antibiotics.no new orders noted. [facility] 07-03-2024 Consult note Formatting of th is note might be different from the original. ATTENDING PHYSICIAN [facility] PRIMARY CARE PHYSICIAN ANI WORLEY CNP ADMITTING PHYSICIAN CHRISTIAN PORTER MD CONSULTING PHYSICIAN [facility] Carmen is a gentleman who I [...] Orthopedics at this time. D 07/03/2024 17:03 [id number] 07/03/2024 17:50 MCB/MODL [facility] 07-03-2024 Consult note Formatting of th is note might be different from the original. ATTENDING PHYSICIAN [facility] PRIMARY CARE PHYSICIAN ANI WORLEY CNP ADMITTING PHYSICIAN CHRISTIAN PORTER MD CONSULTING PHYSICIAN [facility] Carmen is a gentleman who I [...] Orthopedics at this time. D 07/03/2024 17:03 [id number] 07/03/2024 17:50 MCB/MODL Associated Order(s): IP CONSULT TO HOME HEALTH HUB Images from the original note were not included. Per chart review noted ID following; please notify Hub liaisons if OPAT needed at [place]. Will need name/number of confirmed TCG. [facility] agency: Pending / Accepted (if [facility], include region) Pending: [facility] First Choice HC Matters [facility] Interim Declined: [place] (orders) created for the following services: [or waiting for ____ (i.e wound care)] SN/PT/OT/aide Verify demographics (residential address) [address] [address] What is the primary number to reach you? [phone] Who is your family physician/primary care physician? Ani Worley, RETURNED GOODS SORTER General - Family Medicine [phone] Do you have a caregiver and/or teachable caregiver (list relationship, name & phone #)? CALIN GILMAN (Relative)/brother Estimated Discharge Date (NATI): 07/04 If discharge needs change, please reach out to liaison assigned on treatment team as hub is not notified of new consults once team is following. Thank you. Patient Name: Carmen iGlman MR #: [id number] [facility] #: [id number] : 1965 Physicians: Ani Worley CNP (Family); [...] chronic hepatitis C, had been treated at [facility] by Dr. Hayden. I had the opportunity [...] that patient just got out of the penitentiary about 2 weeks ago and had been [...] pt for initial transition planning/care coordination assessment. EKLLY MCCRARY introduced self and role, pt voices understanding and consents to assessment. Pt is A/Ox4 and answers all questions appropriately at this time. Pt is lying in bed in no distress on room air. Care providers, pharmacy, and demographics verified/updated. Admitting Dx: SOB, COPD PCP: Meir ARELLANO Specialists: none Preferred Pharmacy: [facility] Insurance: [facility] Prescription Benefit: yes, pt states no concerns [...] states no preference on agency. [facility] for SN/PT/OT/aide. Pt states was recently at [facility] for rehab. Pt is on disability. Pt [...] chronic pain:: Yes documented in this encounter [facility] 07-03-2024 Consult note Associated Order (s): IP CONSULT TO HOME [facility] Images from the original note were not included. Per chart review noted ID following; please notify Hub liaisons if OPAT needed at [place]. Will need name/number of confirmed TCG. [facility] agency: Pending / Accepted (if [facility], include region) Pending: [facility] Interim Declined: [place] (orders) created for the following services: [or waiting for ____ (i.e wound care)] SN/PT/OT/aide Verify demographics (residential address) [address] [place] [id number] What is the primary number to reach you? [phone] Who is your family physician/primary care physician? Ani Worley CNP General - Family Medicine [phone] Do you have a caregiver and/or teachable caregiver (list relationship, name & phone #)? CALIN GILMAN (Relative)/brother Estimated Discharge Date (NATI): 07/04 If discharge needs change, please reach out to liaison assigned on treatment team as hub is not notified of new consults once team is following. Thank you. [facility] 07-03-2024 Consult note Formatting of th is note is different from the original. Patient Name: Carmen Gilman MR #: [id number] : 1965 Physicians: Ani Worley CNP (Family); [...] chronic hepatitis C, had been treated at [facility] by Dr. Hayden. I had the opportunity [...] that patient just got out of the penitentiary about 2 weeks ago and had been [...] meaning can be extrapolated by contextual derivation. [facility] 07-03-2024 Consult note Associated Order (s): IP [...] Meir ARELLANO Specialists: none [facility]erred Pharmacy: [facility] Prescription Benefit: yes, pt states no concerns [...] states no preference on agency. [facility] for SN/PT/OT/aide. Pt states was recently at [facility] for rehab. Pt is on disability. Pt [...] routine activities due to chronic pain:: Yes [facility] 07-03-2024 Progress note Formatting of t his note might be different from the original. Pt refused to order food from dietary unless he has a regular menu. Dr. Vargas notified and pt diet changed to regular per request. [facility] 07-03-2024 Hospital Discharge instructions Rachelle Yang RN - 07/03/2024 8:04 AM EST These are the low income housing and apartments in [place], [place]. Many of these apartments have waiting lists. Make sure you phone the apartments directly for full details and office hours. Do not get discouraged. Through our experience, we have learned that you will need to contact many apartments. If you stick with it, you will find that apartment that you love, with availability. AFFORDABLE APARTMENTS [facility] Apartments [address] [place] [address] Family Housing [facility] Apartments [address] [place] [address] Family Housing [facility] [address] [place] [address] Kevan Farris (Charly) Family Housing [facility] Apartments [address] [place] [address] Family Housing [facility] [address] [place], [place] [address] Family Housing [facility] [address] [place] [address] [address] [place] [address] Family Housing [place] [facility] [address] [place] [address] Disabled Housing [facility] Apartments [address] [place] [address] Family Housing [address] [place] [address] Family Housing [facility] Apartments [address] [place] [address] Family Housing [place] [address] [place] [address] Family Housing [place] [facility] [place] [address] [place] [address] Jeff Family Housing [facility] [address] [place] [address] Family Housing [place] [address] [place] [address] [facility] EMERGENCY HOUSING [facility] Life Services [address] [place] [address] Alanis Daugherty Domestic Violence Half-Way 24 hr. Molly Poe 4 [employer] (Men only) [place] [address] [place] [address] [employer] [facility] Demar/Rent Assistance [facility] [address] [place] [address] [facility] [address] [place] [address] BUDGET & FINANCIAL SERVICES [employer] [address] [place] [address] Budget counseling and debt management program. They help people attain lower credit card interest rates, stop fees and collection activity [employer] Residential State Supplement Program [address] [place] [place] [address] Services are - information and referral services, supportive and in-home services, training, housing and service development, residential state supplement program. Care Choice [place]: Community Care Coordination and Housing Choices for seniors. 60 & older [facility] [address] [place] [address] At [facility], we believe in educating and empowering families and individuals to help them make flood money management decisions. Financial education workshops are held regularly at [facility]. The workshops are free and open to the public. Job & Family Services - [facility] [address] [place] [address] Food stamps, Medicaid, prevention, retention and contingency funds and keane assistance [facility] Section 8 Voucher ([employer]) [address] [place] [address] This is a housing subsidy agent. Its function is to bring together the entry clerk of property and low/moderate - income persons who meet certain criteria. [facility] Extension [address] [place] [address] Program areas of emphasis include - leadership development of adults and youth, management of resources, family budgeting and farm director of student financial services, nutrition, lawn and garden care and other aspects of home economics, agriculture and youth development. [facility] Service Commission [address] ([facility]) [place] [address] Temporary aid, including limited financial assistance to resident veterans of [facility] Social Security Administration [address] [place] [address] Toll Free Assist in the filing of claims for mcc, disability or survivor keane benefits, as well as claims to establish eligibility for Medicare coverage. Also assist in filing claims for Supplemental Security Income Program which provides keane benefits to aged, blind or disabled people who have limited income and resources. www.socialsecurity.gov PROFESSIONAL BONDSMAN [facility] ([facility] [facility]) [address] [place] [address] Tuesday thru Tuesday 6:30 am to 5:30 pm 6 weeks to 12 yrs. 5 [facility] [address] [place] [address] Tuesday thru Tuesday 6:00 am to 6:00 pm 6 weeks to 12 yrs. First [employer] Italian Lecturer [address] [place] [address] Tuesday thru Tuesday 5:30 am to 6:30 pm 6 weeks to 12 yrs. Early Learning [facility] [address] [place] [address] Tuesday thru Tuesday 7:00 am to 5:30 pm 6 weeks to 12 yrs. [facility] Sikhism [facility] Learning Center [address] [place], [place] [id number] Tuesday thru Tuesday 5:00 am to 6:00 pm 6 weeks to 12 yrs. [facility] ([facility] [facility]) [address] [place], [place] [phone] Tuesday thru Tuesday 6:30 am to 5:30 pm 6 weeks to 12 yrs. [facility] [address] [place], [place] [address] Tuesday thru Tuesday 6:30 am to 6:00 pm 3-6 year olds After school K thru 6th [employer] [address] [place], [place] [id number] Tuesday thru Tuesday 6:30 am to 6:30 pm 6 weeks to 12 yrs. Rosanna Blessings [address] [facility] [address] Tuesday thru Tuesday 5:30 am to 7:00 pm 6 weeks to 12 yrs. [employer] [address] [place] [address] Tuesday thru Tuesday 7:00 am to 9:00 pm 6 weeks to 12 yrs. [facility] [address] [facility] [address] Tuesday thru Tuesday 6:30 am to 6:00 pm 6 weeks to [address] [facility]/OS Child Development Center [address] [place] [address] Tuesday thru Tuesday 7:00 am to 5:30 pm 6 weeks through [facility] ([facility] Y) [address] [place] [address] Tuesday thru Tuesday 6:30 am to 5:30 pm 6 weeks to 12 yrs. [facility] Italian Lecturer & Education Center [address] [place] [address] Tuesday thru Tuesday 6:30 am to 5:30 pm 6 weeks to 11 yrs. [facility] [address] [place] [address] Tuesday thru Tuesday 5:30 am to 11:30 p.m. Tuesday 6:00 am to 6:30 pm 6 weeks to 12 yrs. 6 EMERGENCY ASSISTANCE [employer] Supporting Homeless Services in [facility]) [address] [place] [address] Clothing Hours Tues - Sat. 10:00 AM - 4:00 PM [employer] [facility] [address] [place] [address] [employer] [place] [address] [place], [place] [id number] Provides disaster relief, support to families, and health and safety training. [facility] [address] [place], [place] [address] Food, Clothing, Activities Tuesday 10:00 AM - 6:00 PM 10:00 AM - 4:00 PM Tuesday 10:00 AM - 2:00 PM Tuesday 10:00 AM - 2:00 PM [employer] [address] [place] [address] Material assistance program which includes food, prescription, rent, and medical bills. [employer] ([employer].P.E. Pantry) [address] [place]. [address] ([phone]) ext.230 Hrs.: Mon//Fri 8:30am-12:30pm 8:30-11:00am & 1:00-3:30pm Curbside Drive-Thru, Delivery by agency referral to seniors and households w/o transportation. Eligibility: walk-in, food every 30 days Intake: photo ID and proof of [facility]. residency (current piece of mail accepted as proof) [facility] Emergency Repair Funds Community Dev. Office [facility] [address] [place] [address] Provides assistance with home repairs. Community Action Commission of [facility], & [facility] HEAP Program (Winter & Summer) [address] [place] [address] Provides emergency heating and air conditioning, one-time assistance, and other utility assistance [address] [facility] Program (Contact Mayr [employer] [facility] [facility]) [address] [place] [address] Distribution of food, clothing, linens, and toys is usually the second before Hines (december vary). social services aide offered all year round. Emergency Food Assistance ([employer]) [address] [place], [place] [id number] [facility] parking lot at corner of [facility] & [place], [place] Free Fresh Produce Distributions . of each Month - December - Drive-through only PYO bags & boxes - One form of ID required [employer] Store: [address] [place] [address] Store: [address] [place], [place] [phone] ([phone] Hours Mon. - Sun. 10:00 AM - 6:00 PM [facility] [address] [place], [place] [id number] Every other Tue. 3-6pm beginning December 25 and every . 9:00 am to noon Intake: photo ID, proof of residency if different from ID Drive-thru or walk up only [employer] [address] [place] [id number] Provides weatherization and home safety services. [employer] [address] [place], [place] [id number] A homeless halfway that provides emergency, temporary housing. Information Line First Call [address] [facility] A telephone information and referral services Information is collected on social service agencies, support groups, churches, clubs and organizations, government offices, cultural and recreational institutions located in [facility]. [facility] welcomes you to [place] - Hot Meal Outreach [address] [place], [place] [address] Tuesday each month Livier Andrew of [facility] [place] [address] Hrs.: Every ., 6:15pm-7:00pm (Must be registered) Intake: To register, call [employer] at for screening and referral, . & Tue. 9:30am-noon [employer] [address] [place] [address] Phone calls only. Tues. & Wed. Assists in short term help. [facility] Food Pantry [employer]ancesca Hazel Sikhism [facility] [address] [place], [place] [address] Must live in [facility] or [facility] Food [facility] [address] [place] [address] Hrs.: 2nd & 4th Sat. each month 9:00-11:00am Note! Drive-thru only. No public restrooms Eligibility: [place], [place], [place] & [place] [address] Intake: Photo ID required & proof of address, i.e. recent utility bill, medical bill, etc. with current address [facility] [address] [place], [place] Free Fresh Produce 2nd Sat. of each month - [place] annually Laborer General's license or State ID required [address] [place], [place] [address]steven Yeager [facility] Food Pant[facility] [address] [place], [place] [id number] Fridays 9:00 am to 3:00 pm Call the [facility] before coming. [place] [address] [place], [place] [id number] Hours: Tuesday of the month. 1000 am to 3:00 pm. [address] [facility] with number of people in family, address, and phone number for them to call you back with fiber picker time for the next day. Must have phone number so we can call to tell you when to come and fiber picker food. [place] residents only [facility] [address] [place], [place] [id number] Hrs.: Third Wed. of the month 9:30am, during monthly breakfast Intake: photo ID & proof of residency Eligibility: may use pantry every other month Nikhil GOODSON [address] [facility] [address] Free Fresh Produce Tuesday - January 18 4th Sat. of the month - Drive thru only Fill out intake form - no documents required [facility] [address] [place] [address] Hrs.: Third Sat. each month 9:30-10:30am Eligibility: Anyone in need, up to six times per year Intake: photo ID, proof of residency [facility] [address] [address] Hrs.: Third Sat. from 1-2pm Intake: Laborer General's license/photo ID Area served: [facility] [address] [place] [address] Provides free meals and food assistance Third Tuesday of every month [employer] (Supporting [employer]) [address] [place] [address] Also: [address] [place] [address] Habitat builds or remodels homes for low-income families. Hours: Tue, Fri., Sat. 11:00 AM - 5:00 PM 12:00 PM - 5:00 PM [facility] [address] [place] [address] Provides residents with temporary emergency financial accounting analyst for [facility] veterans who have met unexpected hardship or crisis. [facility] [address] [place] [address] The [facility] and [facility] food pantry supports families with food in times of need. Please call to set up arrangements. [facility] only. [facility] [address] [place] [address] Helps with housing, rent, food, and shoes, during school months Food Pantry: Tuesday - Tuesday 10:30am-2:00pm Eligibility: 18 or older (carry out only) Intake: Proof of [facility]. Residency (clients should seek assistance from the Chapter closest to their residence) [facility] [employer] [address] [place] [address] Provides assistance with home repairs. [facility] [address] [place] [address] Direct financial accounting analyst assistance with rent, utilities, etc. Furniture linkage for persons in need of furniture, school clothes, exchange in March for school age children and youth to receive school supplies and clothes. [facility] [address] [place] [address] Tuesday thru Tuesday 9 am to 6 pm Tuesday 9 am to 5 pm 12 [facility] [address] [place] [address] Clothing Closet [facility] [address] [place], [place] [phone] Clothing Closet only 10 am to 5 pm $5.00 per bag; open to all [facility] [address] [place], [place] [id number] Food Pantry 6:15 pm to 7pm By appointment only [employer] [facility] [address] [place] [address] [facility] Tuesday thru Tuesday 10am to 7pm Tuesday 12pm to 6pm [employer] [address] [place], [place] [address] [employer] Tuesday thru Tuesday 10am to 4pm Tuesday 10am to 2 pm TRANSPORTATION Agency Transportation Advisory Committee [facility] Regional Planning Commission [address] [place] [address] Coordination of available transportation for people with disabilities, people over 60, or those who are otherwise disadvantaged. [employer] [address] [place] [address] Service available 7 days a week 24 hours a day [employer] *Bus Stop Only [address] [place] [address] Job & Family Services [facility] [address] [place] [address] The Enhanced Medicaid Transportation Services (DINING ROOM SERVER) program provides non-emergency transportation for Medicaid eligible recipients. [facility] Transit (RCT) [address] [place] [address] Tickets Bus Terminal Buses cover nearly all of the [facility], portions of [facility], the [facility], and industrial areas. This is the most flexible and cost effective transportation available. [facility] RESOURCE GUIDE FCP/SOCIAL SERVICE/RESOURCE GUIDES June 19, 2020 The following attachments cannot be sent through Care Everywhere.Food Insecurity: General Info (Algerian)documented in this encounter [facility] 07-03-2024 Plan of care note Problem: [...] of skin protection measures Outcome: Partially Met [facility] 07-02-2024 Emergency department Note Bed: 39 Expected date: Expected time: Means of arrival: Comments: 17 [facility] 07-02-2024 Emergency department Note Bed: 39 [...] CHEST Associated Order(s): ECG 12 Lead (Now) [facility] ATTENDING NOTE: NAME: Carmen Gilman CSN: [id number] 58 y.o. PCP: Ani Worley CNP History: [...] a day . naloxone (NARCAN) 4 mg/actuation [place] Administer 1 spray into one nostril for [...] All other components within normal limits Narrative: [facility] Laboratory Services has implemented the eGFR [...] Procedure Abnormality Status --------- ------ CBC Auto Differential[[id number]] Abnormal Final result Please view results for [...] physician Rhythm: sinus rhythm BPM: 75 normal GA interval normal QRS interval Comments: Normal [place] not prolonged QRS not prolonged Qt<1/2 rr [...] Jose Lozano MD, MD ED Attending Physician [facility] Jose Lozano MD 07/03/24 [...] arrival: Comments: r1 documented in this encounter [facility] 07-02-2024 History and physical note [facility] HISTORY AND PHYSICAL -- [facility] Patient Name: Carmen Gilman : 1965 MR #: [id number] Admit Date: 07/02/2024 Physicians: Ani Worley CNP (Family); No ref. provider found (Referring) Carmen Gilman is a 58 y.o. adult patient of Ani Worley CNP with history of anxiety, arrhythmia, asthma, COPD, hypertension, opioid dependence, secondary adrenal insufficiency presented to [facility] on 07/02/2024 with shortness of breath. 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 Pt states that he has had ARROYO today. Pt sat down as he was very short of breath. Pt noticed some swelling in his legs recently as well. He states he's not taking his meds. He just [facility] of the [facility] 2 weeks ago. Pt had been at [...] right leg Psych: normal mood and affect [facility] 07-02-2024 History and physical note [facility] HISTORY AND PHYSICAL -- [facility] Patient Name: Carmen Gilman : 1965 MR #: [id number] Admit Date: 07/02/2024 Physicians: Ani Worley CNP (Family); No ref. provider found (Referring) Carmen Gilman is a 58 y.o. adult patient of Ani Worley CNP with history of anxiety, arrhythmia, asthma, COPD, hypertension, opioid dependence, secondary adrenal insufficiency presented to [facility] on 07/02/2024 with shortness of breath. 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 Pt states that he has had ARROYO today. Pt sat down as he was very short of breath. Pt noticed some swelling in his legs recently as well. He states he's not taking his meds. He just got out of the penitentiary 2 weeks ago. Pt had been at [...] mood and affect documented in this encounter [facility] 07-02-2024 Note 1. Suboptimal evaluation of [...] infection is not excluded. Workstation ID: [id number] [facility] 07-02-2024 Emergency department Note Patient with call light on, educated that patient not to have food or drink until CT results back. [facility] 07-02-[address] VIA CART [facility] 07-02-[address] CALLED TO ADVISE OF NEW IV SITE IN FOR SCAN [facility] 07-02-2024 Emergency department Note PT ADVISED OF [...] DID AGREE TO HAVE CT OF CHEST [facility] 07-02-2024 Physician Emergency department Note Associated Order(s): ECG 12 Lead (Now) [facility] ATTENDING NOTE: NAME: Carmen Gilman CSN: [id number] 58 y.o. PCP: Ani Worley CNP History: [...] LEG SPLIT THICKNESS SKIN GRAFT; Surgeon: Cecilia Gnozales DPM; Location: Main OR; Service: Podiatry THORACIC [...] a day . naloxone (NARCAN) 4 mg/actuation [place] Administer 1 spray into one nostril for [...] All other components within normal limits Narrative: [facility] Laboratory Services has implemented the eGFR [...] Procedure Abnormality Status --------- ------ CBC Auto Differential[[id number]] Abnormal Final result Please view results for [...] physician Rhythm: sinus rhythm BPM: 75 normal GA interval normal QRS interval Comments: Normal [place] not prolonged QRS not prolonged Qt<1/2 rr [...] Jose Lozano MD, MD ED Attending Physician [facility] Jose Lozano MD 07/03/24 0058 [facility] 07-02-2024 Emergency department Triage note Pt to ed for sudden onset of shortness of breath. Patient has COPD but states the shortness of breath was worse this time. Patient took approx 7-10 hits of his inhaler and states he feels, "back to normal." Denies chest pain. [facility] 07-02-2024 Emergency department Note Bed: 17 Expected date: Expected time: Means of arrival: Comments: r1 [facility] 01-17-2024 History of Present illness Narrative Images [...] & Ankle Surgery documented in this encounter [facility] 09-09-2023 History of Present illness Narrative [...] intact. Protective sensation is diminished using the [place] Jared monofilament. Dermatologic: See images below. Musculoskeletal: [...] Physician & Surgeon documented in this encounter [facility] 09-02-2023 History of Present illness Narrative [...] intact. Protective sensation is diminished using the [place] Jared monofilament. Dermatologic: See images below. Musculoskeletal: [...] Physician & Surgeon documented in this encounter [facility] 09-02-2023 Instructions Jolanta Jones RN - 09/02/2023 2:56 PM EST Adaptic, 4x4's, kerlix, coban from toes to knee Do not change dressing Keep clean and dry F/u 1 week documented in this encounter [facility] 08-26-2023 History of Present illness Narrative Complete note to follow documented in this encounter [facility] 08-26-2023 History of Present illness Narrative [...] intact. Protective sensation is diminished using the [place] Jared monofilament. Dermatologic: See images below. Musculoskeletal: Patient is able to wiggle digits. Ankle joint range of motion is intact. Muscle strength is 5/5 to dorsiflexors, plantar flexors, inverters and everters. Compartments soft and compressible. No calf pain Diagnoses: 1. 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) Wound 08/05/23 1 Surgical Wound Upper Leg Anterior;Right (Active) Wound Image 08/26/23 0075 Assessment/Plan: Patient was seen and evaluated. Discussed [...] Physician & Surgeon documented in this encounter [facility] 08-26-2023 Instructions Jessenia Cruz RN - 08/26/2023 1:55 PM EST Vaseline to bilateral legs dry skin Irrigate with saline and pad dry Apply gavino to all open wound edges Adaptic 4x4's, kerlix, coban from toes to knee F/u 1 week documented in this encounter [facility] 08-19-2023 History of Present illness Narrative [...] was tolerated well documented in this encounter [facility] 08-19-2023 Instructions Jolanta Jones RN - 08/19/2023 12:26 PM EST Gavino to all open areas bilaterally, 4x4's, kerlix, coban from toes to knee F/u 1 week documented in this encounter [facility] 08-11-2023 History of Present illness Narrative Images from the original note were not included. Patient Name: Carmen Gilman Admit Date: [id number] MR #: [id number] : 1965 Physicians: Ani Worley CNP (Family); No ref. provider found (Referring) Assessment: Patient with 1. Right lower extremity nonhealing wound 2. Right Knee abscess, with suspicion for prosthetic right knee infection. 3. Chronic hepatitis C,(treated at [facility], and negative hepatitis C RNA.) 4. Bilateral [...] post skin graft. Continue dressing as per motorized squad commanding officer recommendation. Podiatry is recommending patient to stay [...] 400 mg, 400 mg, Oral, 4x daily, Mnocho Joaquin MD, 400 mg at 08/11/23 1400 heparin (porcine) injection 5,000 Units, 5,000 Units, Subcutaneous, Q8H [facility], Moncho Joaquin MD, 5,000 Units at 08/06/23 [...] Disp: , Rfl: naloxone (NARCAN) 4 mg/actuation [place], Administer 1 spray into one nostril for [...] knee with drainage, and wound. Area dressed. POLICY WRITER: Awake, and Ox3, Wound: Ulceration of the [...] extremity subcutaneous tissues, which could represent cellulitis. [facility]/Notegraphy Workstation ID: [id number] Laboratory and Additional Data [...] Podiatry Inpatient progress note 08/11/2023 Quyen Franco, [facility] Patient Name: Carmen Gilman. . Date of [...] pedal complaints. Anxious to get discharged to [facility] today. Physical Examination: BP 129/68 Pulse 67 [...] Quyen Franco Medical Transportation set up by [facility] per hospital request: Date:08/11/23 Time:3pm Destination: [place] [address] Company: [employer] ([phone]) Special needs/equipment:N/A Truck Type: Ambulance Companies called: [...] chart from id team - faxed to [place] - transport requested from [employer] - will [...] as soon as the time is secured. [facility] PROGRESS NOTE Assessment and Plan Carmen Gilman [...] hypertension and esophageal varices, pancytopenia, presented to [facility] due to wounds in the lower extremity [...] He would like to go back to [facility] as soon as possible. BP (!) 121/52 [...] Carmen Gilman Admit Date: [id number] MR #: [id number] : 1965 Physicians: Ani Worley, RODRIGUE (Family); No ref. provider found (Referring) Assessment: Patient with 1. Right lower extremity nonhealing wound 2. Right Knee abscess, with suspicion for prosthetic right knee infection. 3. Chronic hepatitis C,(treated at [facility], and negative hepatitis C RNA.) 4. Bilateral [...] post skin graft. Continue dressing as per motorized squad commanding officer recommendation. Podiatry is recommending patient to stay [...] knee with drainage, and wound. Area dressed. POLICY WRITER: Awake, and Ox3, Wound: Ulceration of the [...] extremity subcutaneous tissues, which could represent cellulitis. [facility] Workstation ID: [id number] Laboratory and Additional Data [...] follow. Jalyn Mercer RDN, LD Dietitian's Office [phone] Images from the original note were not included. Podiatry Inpatient progress note 08/10/2023 Quyen Franco, [facility] Patient Name: Carmen Gilman. . Date of [...] patient stay until Tuesday before discharging to [facility]. Subjective: Patient seen in his room, lying [...] Rolling: Modified independent, Head of bed flat Metal Fabricator Apprentice: bedrails Skilled Intervention Provided: monitoring patient response [...] information Prior Level of Function Level of [place] - Transfers/Ambulation/Mobility: Independent with functional transfers, Independent with household ambulation Level of [place] - ADLs: Independent For complete objective data, [...] Carmen Gilman Admit Date: [id number] MR #: [id number] : 1965 Physicians: Ani Worley, RETURNED GOODS SORTER (Family); No ref. provider found (Referring) Assessment: Patient with 1. Right lower extremity nonhealing wound 2. Right Knee abscess, with suspicion for prosthetic right knee infection. 3. Chronic hepatitis C,(treated at [facility], and negative hepatitis C RNA.) 4. Bilateral [...] post skin graft. Continue dressing as per motorized squad commanding officer recommendation. We will continue to follow with [...] knee with drainage, and wound. Area dressed. POLICY WRITER: Awake, and Ox3, Wound: Ulceration of the [...] extremity subcutaneous tissues, which could represent cellulitis. [facility]/Notegraphy Workstation ID: [id number] Laboratory and Additional Data [...] Discharge Plan Status: Per Dr. Sandra in [facility], pt will likely be ready for discharge in a day or two. Kelsey working on precert to try and skill pt on return. CM to follow. Images from the original note were not included. Podiatry Inpatient progress note 08/09/2023 Quyen Franco, RETURNED GOODS SORTER [facility] Patient Name: Carmen Gilman. . Date [...] help care for your patient. Quyen Franco [facility] PROGRESS NOTE Assessment and Plan Carmen Gilman [...] hypertension and esophageal varices, pancytopenia, presented to [facility] due to wounds in the lower extremity [...] Carmen Gilman Admit Date: [id number] MR #: [id number] : 1965 Physicians: Ani Worley, RODRIGUE (Family); No ref. provider found (Referring) Assessment: Patient with 1. Right lower extremity nonhealing wound 2. Right Knee abscess, with suspicion for prosthetic right knee infection. 3. Chronic hepatitis C,(treated at [facility], and negative hepatitis C RNA.) 4. Bilateral [...] post skin graft. Continue dressing as per motorized squad commanding officer recommendation. We will continue to follow with [...] injection 5,000 Units, 5,000 Units, Subcutaneous, Q8H [facility], Moncho Joaquin MD, 5,000 Units at 08/06/23 [...] 5 mg, Oral, Nightly PRN, Dee Carnes, RETURNED GOODS SORTER, 5 mg at 08/07/23 2111 meloxicam (MOBIC) [...] knee with drainage, and wound. Area dressed. POLICY WRITER: Awake, and Ox3, depressed leuk Wound: Ulceration [...] extremity subcutaneous tissues, which could represent cellulitis. [facility] Workstation ID: [id number] Laboratory and Additional Data [...] meaning can be extrapolated by contextual derivation. [facility] PROGRESS NOTE Assessment and Plan Carmen Gilman [...] hypertension and esophageal varices, pancytopenia, presented to [facility] due to wounds in the lower extremity [...] Carmen Gilman Admit Date: [id number] MR #: [id number] : 1965 Physicians: Ani Worley CNP (Family); No ref. provider found (Referring) Assessment: Patient with 1. Right lower extremity nonhealing wound 2. Right Knee abscess, with suspicion for prosthetic right knee infection. 3. Chronic hepatitis C,(treated at [facility], and negative hepatitis C RNA.) 4. Bilateral [...] post skin graft. Continue dressing as per motorized squad commanding officer recommendation. We will continue to follow with [...] knee with drainage, and wound. Area dressed. POLICY WRITER: Awake, and Ox3 Wound: Ulceration of the [...] Note Patient Name: Carmen Gilman MR #: [id number] Date of Service: 08/07/23 Clinician: Harper Arango [...] sodium chloride (PF) 5 mL Intravenous Q8H [facility] Laboratory and Additional Data Reviewed: Laboratory 08/07/23 [...] extremity subcutaneous tissues, which could represent cellulitis. [facility]/s Workstation ID: [id number] Impression and Recommendations [...] 32.55 kg/m Laboratory and Additional Data Reviewed: Reviewed:[id number]} US Abdomen Complete Narrative: EXAMINATION: US ABDOMEN [...] tree is not dilated Workstation ID: [id number] [facility] PROGRESS NOTE Assessment and Plan Carmen Gilman [...] hypertension and esophageal varices, pancytopenia, presented to [facility] due to wounds in the lower extremity [...] Carmen Gilman Admit Date: [id number] MR #: [id number] : 1965 Physicians: Ani Worley, RODRIGUE (Family); No ref. provider found (Referring) Assessment: Patient with 1. Right lower extremity nonhealing wound 2. Right Knee abscess, with suspicion for prosthetic right knee infection. 3. Chronic hepatitis C,(treated at [facility], and negative hepatitis C RNA.) 4. Bilateral [...] evaluation recommended. Scheduling for skin graft. Follow-up motorized squad commanding officer evaluation, Continue dressing as per motorized squad commanding officer recommendation. We will continue to follow with you. I reviewed deep right knee wound culture with no growth I discussed with the motorized squad commanding officer, Dr. Gonzales, scheduling for skin graft. Addendum. [...] capsule 500 mg, 500 mg, Oral, Q6H [facility], Kinza Garrett MD, 500 mg at 08/06/23 [...] injection 5,000 Units, 5,000 Units, Subcutaneous, Q8H [facility], Moncho Joaquin MD, 5,000 Units at 08/06/23 [...] knee with drainage, and wound. Area dressed. POLICY WRITER: Awake, and Ox3 Wound: Ulceration of the [...] extremity subcutaneous tissues, which could represent cellulitis. [facility]/Noteg[employer]y Workstation ID: [id number] US Abdomen Complete (Results [...] 32.55 kg/m Laboratory and Additional Data Reviewed: Reviewed:[id number]} CT Knee Right With Contrast Narrative: EXAMINATION: [...] extremity subcutaneous tissues, which could represent cellulitis. [facility]/Noteg[employer] Workstation ID: [id number] [facility] PROGRESS NOTE Assessment and Plan Carmen Gilman [...] hypertension and esophageal varices, pancytopenia, presented to [facility] due to wounds in the lower extremity [...] Carmen Gilman Admit Date: [id number] MR #: [id number] : 1965 Physicians: Ani Worley, RETURNED GOODS SORTER (Family); No ref. provider found (Referring) Assessment: Patient with 1. Right lower extremity nonhealing wound 2. Right Knee abscess, with suspicion for prosthetic right knee infection. 3. Chronic hepatitis C,(treated at [facility], and negative hepatitis C RNA.) 4. Bilateral [...] evaluation recommended. Scheduling for skin graft. Follow-up motorized squad commanding officer evaluation, Continue dressing as per motorized squad commanding officer recommendation. We will continue to follow with you. I reviewed deep right knee wound culture with no growth I discussed with the motorized squad commanding officer, Dr. Gonzales, scheduling for skin graft. Addendum. [...] capsule 500 mg, 500 mg, Oral, Q6H [facility], [facility] system[facility] MD, 500 mg at 08/05/23 0403 [OCT [...] injection 5,000 Units, 5,000 Units, Subcutaneous, Q8H [facility], Moncho Joaquin MD, 5,000 Units at 07/31/23 [...] 5 mg, Oral, Nightly PRN, Dee Carnes, RETURNED GOODS SORTER, 5 mg at 08/04/23 2259 [OCT Hold] [...] injection, , Intravenous, PRN, Lu, Maury Luke, R DEVELOPER, 4 mg at 08/05/23 1630 fentaNYL (SUBLIMAZE) injection, , Intravenous, PRN, Lu, Maury Luke, R DEVELOPER, 50 mcg at 08/05/23 1703 lidocaine 20 mg/mL (2 %) injection, , Intravenous, PRN, Lu, Maury Luke, R DEVELOPER, 100 mg at 08/05/23 1627 midazolam (VERSED) injection, , Intravenous, PRN, Lu, Maury Luke, R DEVELOPER, 2 mg at 08/05/23 1624 ondansetron (ZOFRAN) injection, , Intravenous, PRN, Lu, Maury Luke, R DEVELOPER, 4 mg at 08/05/23 1630 propofoL (DIPRIVAN) injection, , Intravenous, PRN, Lu, Maury Luke, R DEVELOPER, 40 mg at 08/05/23 1703 sodium chloride 0.9% (NS), , Intravenous, Continuous PRN, Lu, Maury Luke, R DEVELOPER, New Bag at 08/05/23 1623 PMH/PSH/SH/FH reviewed, [...] excoriations Musculoskeletal: No joint swelling, non tender POLICY WRITER: Awake, and Ox3 Wound: Ulceration of the [...] extremity subcutaneous tissues, which could represent cellulitis. [employer]/Notegraphy Workstation ID: [id number] US Abdomen Complete (Results [...] meaning can be extrapolated by contextual derivation. [facility] PROGRESS NOTE Assessment and Plan Carmen Gilman [...] hypertension and esophageal varices, pancytopenia, presented to [facility] due to wounds in the lower extremity [...] needed while in-house. Tyesha Cohen RDN, Office [phone] Images from the original note were not included. Patient Name: Carmen Gilman Admit Date: [id number] MR #: [id number] : 1965 Physicians: Ani Worley, RETURNED GOODS SORTER (Family); No ref. provider found (Referring) Assessment: Patient with 1. Right lower extremity nonhealing wound 2. Right Knee abscess, with suspicion for prosthetic right knee infection. 3. Chronic hepatitis C,(treated at [facility], and negative hepatitis C RNA.) 4. Bilateral [...] evaluation recommended. Scheduling for skin graft. Follow-up motorized squad commanding officer evaluation, Continue dressing as per motorized squad commanding officer recommendation. We will continue to follow with [...] capsule 500 mg, 500 mg, Oral, Q6H [facility], Kinza Garrett MD, 500 mg at 08/04/23 [...] injection 5,000 Units, 5,000 Units, Subcutaneous, Q8H [facility], Moncho Joaquin MD, 5,000 Units at 07/31/23 [...] 5 mg, Oral, Nightly PRN, Dee Carnes, RETURNED GOODS SORTER meloxicam (MOBIC) tablet 15 mg, 15 mg, [...] excoriations Musculoskeletal: No joint swelling, non tender POLICY WRITER: Awake, and Ox3 Wound: Ulceration of the [...] extremity subcutaneous tissues, which could represent cellulitis. [facility]/Noteg[employer]y Workstation ID: [id number] Laboratory and Additional Data [...] Inpatient progress note 08/04/2023 Quyen Franco, RODRIGUE [facility] Patient Name: Carmen Gilman. . Date [...] help care for your patient. Quyen Franco [facility] PROGRESS NOTE Assessment and Plan Carmen Gilman [...] hypertension and esophageal varices, pancytopenia, presented to [facility] due to wounds in the lower extremity [...] Carmen Gilman Admit Date: [id number] MR #: [id number] : 1965 Physicians: Delany, Nai M, RETURNED GOODS SORTER (Family); No ref. provider found (Referring) Assessment: Patient with 1. Right lower extremity nonhealing wound 2. Right Knee abscess, with suspicion for prosthetic right knee infection. 3. Chronic hepatitis C,(treated at [facility], and negative hepatitis C RNA.) 4. Bilateral [...] Podiatry evaluation recommended. Continue dressing as per motorized squad commanding officer recommendation. We will continue to follow with [...] excoriations Musculoskeletal: No joint swelling, non tender POLICY WRITER: Awake, and Ox3 Wound: Ulceration of the [...] extremity subcutaneous tissues, which could represent cellulitis. [facility]/Noteg[employer] Workstation ID: [id number] Laboratory and Additional Data [...] Transfers Sit to Stand: Stand by assist Metal Fabricator Apprentice: wheeled walker, BUE Skilled Intervention Provided: verbal [...] information Prior Level of Function Level of [place] - Transfers/Ambulation/Mobility: Independent with functional transfers, Independent with household ambulation Level of [place] - ADLs: Independent For complete objective data, detailed plan of care and patient education refer to: PT Evaluation flowsheet, PT Evaluation and Treatment flowsheet, PT Treatment flowsheet, patient Plan of Care, Plan of Care progress note, and Patient Education. This note stands as the current Discharge Summary upon patient discharge from the hospital or completion of Physical Therapy Plan of Care. [facility] PROGRESS NOTE Assessment and Plan Carmen Gilman [...] hypertension and esophageal varices, pancytopenia, presented to [facility] due to wounds in the lower extremity [...] and pt states plan is back to [place] at discharge. Pt does state concerns with COVID at [place]. Pt encouraged to let them place line [...] Podiatry Inpatient progress note 08/03/2023 Quyen Franco, [facility] Patient Name: Carmen Gilman. . Date of [...] in Direct Patient Care: 15 Narrative: This insurance biller visited the pt., Carmen, while rounding. Visit was brief as Carmen was not feeling well. Introduced self and role. Carmen explained that he had a difficult day and wanted prayer. He led prayer with this insurance biller and asked for healing. This insurance biller provided empathetic listening and supportive presence. This insurance biller provided information about Pastoral Care services and how to contact a insurance biller. Pastoral Care team will remain available to support patient and family PRN. Images from the original note were not included. Podiatry Inpatient progress note 08/02/2023 Quyen Franco CNP [facility] Patient Name: Carmen Gilman. . Date [...] refusing knee aspiration per orthopedic surgeon Dr. uDkes Wound clinic consulted for wound VAC application [...] Transfers Sit to Stand: Stand by assist Metal Fabricator Apprentice: wheeled walker, BUE Skilled Intervention Provided: monitoring [...] information Prior Level of Function Level of [place] - Transfers/Ambulation/Mobility: Independent with functional transfers, Independent with household ambulation Level of [place] - ADLs: Independent For complete objective data, [...] Carmen Gilman Admit Date: [id number] MR #: [id number] : 1965 Physicians: Ani Worley, RETURNED GOODS SORTER (Family); No ref. provider found (Referring) Assessment: Patient with 1. Right lower extremity nonhealing wound 2. Right Knee abscess, with suspicion for prosthetic right knee infection. 3. Chronic hepatitis C,(treated at [facility], and negative hepatitis C RNA.) 4. Bilateral [...] the right knee. Continue dressing as per motorized squad commanding officer recommendation. We will continue to follow with [...] excoriations Musculoskeletal: No joint swelling, non tender POLICY WRITER: Awake, and Ox3 Wound: Ulceration of the [...] extremity subcutaneous tissues, which could represent cellulitis. [facility]/Noteg[employer]y Workstation ID: [id number] Laboratory and Additional Data [...] meaning can be extrapolated by contextual derivation. [facility] PROGRESS NOTE Assessment and Plan Carmen Gilman [...] hypertension and esophageal varices, pancytopenia, presented to [facility] due to wounds in the lower extremity [...] Carmen Gilman Admit Date: [id number] MR #: [id number] : 1965 Physicians: Ani Worley, RODRIGUE (Family); No ref. provider found (Referring) Assessment: Patient with 1. Right lower extremity nonhealing wound 2. Right Knee abscess, with suspicion for prosthetic right knee infection. 3. Chronic hepatitis C,(treated at [facility], and negative hepatitis C RNA.) 4. Bilateral [...] the right knee. Continue dressing as per motorized squad commanding officer recommendation. We will continue to follow with [...] 2 puff, 2 puff, Inhalation, Q6H PRN, Monhco Joaquin MD, 2 puff at 07/31/23 0932 [...] excoriations Musculoskeletal: No joint swelling, non tender POLICY WRITER: Awake, and Ox3 Wound: Ulceration of the [...] extremity subcutaneous tissues, which could represent cellulitis. [facility]/Noteg[employer] Workstation ID: [id number] Laboratory and Additional Data [...] follow. Jalyn Mercer RDN, LD Dietitian's Office [phone] [facility] PROGRESS NOTE Assessment and Plan Carmen Gilman [...] hypertension and esophageal varices, pancytopenia, presented to [facility] due to wounds in the lower extremity [...] Podiatry Inpatient progress note 08/01/2023 Quyen Franco [facility] Patient Name: aCrmen Gilman. . Date of : 1965, 58 [...] Inpatient progress note 07/31/2023 Cecilia Gonzales DPM [facility] Patient Name: Carmen Gilman. . Date [...] Carmen Gilman Admit Date: 12070924 MR #: [id number] : 1965 Physicians: Ani Worley, RETURNED GOODS SORTER (Family); No ref. provider found (Referring) Assessment: Patient with 1. Right lower extremity nonhealing wound 2. Right Knee abscess, with suspicion for prosthetic right knee infection. 3. Chronic hepatitis C,(treated at [facility], and negative hepatitis C RNA.) 4. Bilateral [...] the right knee. Continue dressing as per motorized squad commanding officer recommendation. We will continue to follow with [...] injection 5,000 Units, 5,000 Units, Subcutaneous, Q8H [facility], Moncho Joaquin MD, 5,000 Units at 07/31/23 [...] PRN, Moncho Joaquin MD, 10 mg at 07/31/23 1041 pantoprazole [...] IVPB, 1,250 mg, Intravenous, Q12H, Lindsey Zhang, [facility],PharmD, Last Rate: 250 mL/hr at 07/31/23 1047, [...] excoriations Musculoskeletal: No joint swelling, non tender POLICY WRITER: Awake, and Ox3 Wound: Ulceration of the [...] extremity subcutaneous tissues, which could represent cellulitis. [facility]/Notegraphy Workstation ID: [id number] Laboratory and Additional Data [...] meaning can be extrapolated by contextual derivation. [facility] PROGRESS NOTE Assessment and Plan Carmen Gilman [...] hypertension and esophageal varices, pancytopenia, presented to [facility] due to wounds in the lower extremity [...] dressing noted Psych: normal mood and affect [facility] PROGRESS NOTE Assessment and Plan Carmen Gilman [...] hypertension and esophageal varices, pancytopenia, presented to [facility] due to wounds in the lower extremity [...] 1 Encounters: 07/29/23 108.9 kg (240 lb) [place] body weight: 77.6 kg (171 lb 1.2 oz) Adjusted ideal body weight: 90.1 kg (198 lb 10.3 oz) Patient Tmax (last 24 hours): 99 F Micro: pending Pharmacy Personnel: Lindsey Zhang RPh,PharmD Contact: or Vocera documented in this encounter [facility] 08-11-2023 Hospital course Narrative Images from the original note were not included. [facility] DISCHARGE SUMMARY -- [facility] Carmen Gilman Admitted: 07/29/2023 Discharge Date: 08/11/23 [...] hypertension and esophageal varices, pancytopenia, presented to [facility] due to wounds in the lower extremity [...] mouth every morning . naloxone 4 mg/actuation [place] Commonly known as: NARCAN Administer 1 spray [...] instructed. Physician(s) Follow Up: Kinza Garrett MD [address] [place] [address] Follow up in 2 week(s) Condition at Discharge: Good Disposition: SNF I reviewed discharge recommendations with the patient in person. Patient instructions, including activity, were given to the patient/family at discharge. On day of discharge I saw Carmen Gilman and spent: > 30 minutes on discharge. Completed by: Christian Porter on 08/11/23, 12:47 PM documented in this encounter [facility] 08-09-2023 Hospital Discharge instructions Quyen Franco [...] clinic as scheduled documented in this encounter [facility] 08-09-2023 Miscellaneous Notes PHYSICAL THERAPY VISIT [...] to: Patient Unavailable secondary to working with [facility]. Will follow up as appropriate. Problem: Actual [...] (58 y.o.) Date of Service: 08/05/2023 CSN: [id number] Procedure(s): RIGHT LOWER LEG SPLIT THICKNESS SKIN GRAFT Pre-Operative Diagnoses: * Chronic Leg Wound, Right Leg Post-Operative Diagnoses: * Same as Pre-Op Diagnosis Surgeon(s) and Role: * Cecilia Gonzales DPM - Primary Anesthesiologist: Bryson Kelley MD R DEVELOPER: Maury Lu CRNA Interventional Radiologist: Jeremy Fink RN Scrub Person Relief: Jolanta [...] Odor None 08/05/23 1746 Wound Bed Characteristics Fleming-Neon 08/04/23 1828 Wound Closure Other (Comment) 08/05/23 1746 Tiffany-wound Assessment [place]-Neon 08/05/23 1746 Hemostasis Not applicable 08/05/23 1746 [...] documentation, and discharge. documented in this encounter [facility] 08-08-2023 Consult note Associated Order (s): IP CONSULT TO ENTEROSTOMAL THERAPY Wound vac [id number] Returned to the wound clinic via surgical staff and placed in the dirty utility for fiber picker. Wound is no longer being managed by the wound care team, wound care to sing off at this time. Re consult if further wound care needs arise. Jessenia Cruz RN, [place] Associated Order(s): IP CONSULT TO ONCOLOGY Hematology and Oncology Consult Note Patient Name: Carmen Gilman Admit Date: [id number] MR #: [id number] : 1965 Physicians: Ani Worley, RETURNED GOODS SORTER (Family); No ref. provider found (Referring) Impression [...] Jamar Escobedo MD naloxone (NARCAN) 4 mg/actuation [place] Administer 1 spray into one nostril for [...] extremity subcutaneous tissues, which could represent cellulitis. [facility]/Noteg[employer] Workstation ID: [id number] PICC Team consulted for [...] placement so we could proceed with a snf line placement. Patient declined PICC placement stating [...] - Static: Stand by assist, with device Metal Fabricator Apprentice - Standing Static: wheeled walker Bed Mobility Not assessed Transfers Sit to Stand: Stand by assist Metal Fabricator Apprentice: wheeled walker, BUE Gait/Locomotion Gait Assistance: Stand [...] information Prior Level of Function Level of [place] - Transfers/Ambulation/Mobility: Independent with functional transfers, Independent with household ambulation Subjective Impression - Prior Function: uses walker for mobility Past Medical History: Diagnosis Date Anxiety Arrhythmia Arthritis Asthma COPD (chronic obstructive pulmonary disease) (HCC) Diabetes (HCC) Hypertension Opioid dependence ([facility]) Secondary adrenal insufficiency ([facility]) 04/30/2022 left AMA 04/30/22 without treatment Past [...] assist Stand Pivot Transfers: Stand by assist Metal Fabricator Apprentice: wheeled walker Additional Assessment Details Pt seated [...] information Prior Level of Function Level of [place] - Transfers/Ambulation/Mobility: Independent with functional transfers, Independent with household ambulation Level of [place] - ADLs: Independent Subjective Impression - Prior Function: Pt is a difficult historian, becomes irritable towards therapists with questions regarding PLOF and refusing to answer. Pt reports he does not have a home at this time and needs to go to a penitentiary at discharge. Past Medical History: Diagnosis Date [...] ARELLANO Specialists: Preferred Pharmacy: [facility] Insurance: [facility] Prescription Benefit: yes, pt states no concerns obtaining/affording meds and is compliant with meds at home. LW/HPOA: does not have LNOK: Ginny Parks, daughter; Johana Graf, daughter Living Arrangements: Pt lives with daughter, Johana, and her boyfriend but states is not really supposed to be staying there. Pt states was sent home from [place] 'about a week ago'. Pt states is working with Jolanta Schaefer at [facility] to get re-set back up with apartment and Jloanta's number is [phone]. This RN CM spoke with Jolanta and she was under impression that pt was still at SNF. Jolanta said they are working on [address] apt in [place] or [facility] apt. Transportation: Pt drives self and states no concerns with transportation. DME/HHC/SNF: Pt states no need for further DME. Pt has had HHC in the past but not currently and has been at [facility]. Pt states lost apartment d/t extended SNF stay. Pt states had referral to [facility] but states they cannot help him till he has apt set up. ANA Bryant at [facility] was assisting pt but had told him he will need to re-apply once home in own apt. [facility] was under impression pt was still at SNF. Stella, [place], updated on all and call placed to [facility]. Per [facility], pt came from there this visit and has not been living with daughter. Pt at [facility] terminologist and they will take him back at discharge. Treatment team updated. Pt does not smoke cigarettes or drink ETOH. Pt states no concerns with going home at time of dc and states no further questions/concerns/needs. Advised pt to ask for CM if any further question/concerns/needs arise, voices understanding. CM to follow. 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 [facility] nursing visit for NPWT dressing application. Wound VAC # [id number] placed. Removed dressing, see details of wound [...] room. Jessenia Cruz RN, CWCA ATTENDING PHYSICIAN [facility] PRIMARY CARE PHYSICIAN ANI WORLEY CNP ADMITTING PHYSICIAN MONCHO JOAQUIN MD CONSULTING PHYSICIAN [place] [facility] HISTORY OF PRESENT ILLNESS Carmen is [...] septic total knee replacement. D 07/31/2023 10:05 [id number] 07/31/2023 11:25 MCB/MODL Associated Order(s): IP CONSULT TO PODIATRY Images from the original note were not included. Podiatry Inpatient Consult Note 07/30/2023 Cecilia Gonzales [facility] Patient Name: Carmen Gilman. . Date of [...] Gonzales Patient Name: Carmen Gilman MR #: [id number] : 1965 Physicians: Ani Worley, RETURNED GOODS SORTER (Family); No ref. provider found (Referring) Chief [...] presented to the wound clinic via his motorized squad commanding officer, who had noted some drainage from the [...] Arthritis Asthma COPD (chronic obstructive pulmonary disease) ([facility]) Diabetes ([facility]) Hypertension Opioid dependence ([facility]) Secondary adrenal insufficiency ([facility]) 04/30/2022 left AMA 04/30/22 without treatment Past [...] extremity subcutaneous tissues, which could represent cellulitis. [employer] Workstation ID: [id number] Physical Examination: Vital Signs: [...] Get orthopedic evaluation. Continue dressing as per motorized squad commanding officer recommendation. We will continue to follow with [...] by contextual derivation. documented in this encounter [facility] 07-30-2023 Emergency department Note Repositioned patient Images from the original note were not included. [facility] ED WHIT Note: NAME: Carmen Gilman 58 y.o. CSN: [id number] PCP: Ani Worley CNP History: Chief Complaint: [...] Arthritis Asthma COPD (chronic obstructive pulmonary disease) ([facility]) Diabetes ([facility]) Hypertension Opioid dependence ([facility]) Secondary adrenal insufficiency ([facility]) 04/30/2022 left AMA 04/30/22 without treatment PMSx: [...] mouth daily . naloxone (NARCAN) 4 mg/actuation [place] Administer 1 spray into one nostril for [...] All other components within normal limits Narrative: [facility] Laboratory Services has implemented the eGFR [...] Procedure Abnormality Status --------- ------ CBC Auto Differential[[id number]] Abnormal Final result Please view results for [...] Uyen Casiano CNP ED Advanced Practice Provider [facility] Emergency Department (Please note that portions of this note have been completed with a voice recognition software. Efforts were made to correct any errors, but occasionally words are mis-transcribed.) Uyen Casiano CNP 07/29/231839 Pt presents to ER from wound care for open wound check to R knee, reports wound being for a couple days. Stated drainage from site. documented in this encounter [facility] 07-29-2023 History and physical note [facility] HISTORY AND PHYSICAL -- [facility] Patient Name: Carmen Gilman : 1965 MR #: [id number] Admit Date: 07/29/2023 Physicians: Ani Worley CNP [...] Arthritis Asthma COPD (chronic obstructive pulmonary disease) ([facility]) Diabetes ([facility]) Hypertension Opioid dependence ([facility]) Secondary adrenal insufficiency ([facility]) 04/30/2022 left AMA 04/30/22 without treatment Past [...] mood and affect documented in this encounter [facility] 07-29-2023 History of Present illness Narrative [...] : 1965, 58 y.o.. Gender: male. Author: Cecilai Gonzales Subjective: Patient is a 58-year-old male [...] was tolerated well documented in this encounter [facility] 07-29-2023 Instructions Jolanta Jones RN - 07/29/2023 1:57 PM EST 1. Take swab culture of right leg wound done here in the clinic 2. Dakin wet to dry to right leg wound 3. Dry dressing to right knee wound 4. Gavino and dsd to left leg wound documented in this encounter [facility] 07-19-2023 History of Present illness Narrative [...] a skin graft. documented in this encounter [facility] 07-15-2023 History of Present illness Narrative [...] instructions were communicated with patient's nurse at [facility] Debridement Consent obtained? verbal Consent given by: [...] was tolerated well documented in this encounter [facility] 07-15-2023 Instructions Marisela Marquez RN - 07/15/2023 8:46 AM EST Xeroform to wound bed then saline wet to dry - Right leg Gavino and dsd - Left leg Teddy bilaterally Change Tuesday, Tuesday, tuesday F/u 1 week documented in this encounter [facility] 07-08-2023 Instructions Marisela Marquez RN - 07/08/2023 2:27 PM EST Wound vac on the right (temporary ns moist gauze placed at wound care.) Facility to place npwt today upon patient return. Iodoflex to left medial leg ulcer, secured with 4 x 4 gauze kerlix Teddy. Change Tuesday, Tuesday, tuesday documented in this encounter [facility] 07-08-2023 History of Present illness Narrative [...] was tolerated well documented in this encounter [facility] 07-01-2023 Instructions Jolanta Jones RN - 07/01/2023 2:14 PM EST Wet to dry on right and vac is to be applied at facility Iodoflex, 4x4's, kerlix and teddy to be applied on left leg wound. Change at the facility once every other day F/u 1 week documented in this encounter [facility] 07-01-2023 History of Present illness Narrative [...] 57-year-old male coming to wound clinic from [facility] following hospitalization. Patient has been followed repeatedly [...] was tolerated well documented in this encounter [facility] 07-01-2023 History of Present illness Narrative [...] was tolerated well documented in this encounter [facility] 06-17-2023 Instructions Jolanta Jones RN - [...] Tuesday for evaluation documented in this encounter [facility] 06-17-2023 History of Present illness Narrative Images from the original note were not included. Podiatry wound clinic VISIT Quyen Franco CNP Patient Name: Carmen Gilman. . Date of : 1965, 57 y.o.. Gender: male. Author: Quyen Franco Subjective: Patient is a 57-year-old male coming to wound clinic from [facility] following hospitalization. Patient has been followed repeatedly [...] in the future documented in this encounter [facility] 06-12-2023 Evaluation + Plan note Associated Problem(s): Adrenal insufficiency (HCC) Chronic, was seeing endocrinology back in 2021 and diagnosed at that time. Seems he has been on 5 mg prednisone continuously. [facility] 06-12-2023 Miscellaneous Notes Associated Problem(s): Adrenal [...] ascites on exam documented in this encounter [facility] 06-12-2023 Evaluation + Plan note Associated Problem(s): Chronic pain Multifactorial with history of back pain, knee pain, neuropathy. He is on gabapentin which we will continue here. On oxycodone for wounds as well Can also use topical Voltaren, lidocaine patches. 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 Has f/u with ID [facility] 06-12-2023 Evaluation + Plan note Associated [...] he goes to wound clinic. Narcan available [facility] 06-12-2023 Evaluation + Plan note Associated Problem(s): [...] [facility], will continue at this time. [facility] 06-12-2023 Evaluation + Plan note Associated Problem(s): Venous stasis dermatitis of both lower extremities Chronic problem, he has both LE wrapped continuously. Left leg swelling has improved but right leg swelling present with history of trauma. Continue Lasix as well. [facility] 06-12-2023 Evaluation + Plan note Associated Problem(s): COPD (chronic obstructive pulmonary disease) (HCC) Chronic problem likely in setting of nicotine use. He does continue to smoke tobacco. We will continue his home inhalers. He is stable at this time and no signs of acute exacerbation. [facility] 06-12-2023 Evaluation + Plan note Associated Problem(s): Cirrhosis (HCC) This is a chronic problem, possibly secondary to hepatitis C infection. He is pancytopenic. Last hep C quant was negative. complete blood count reviewed, continued to have leukopenia, anemia and thrombocytopenia. No ascites on exam [facility] 06-12-2023 History of Present illness Narrative Images from the original note were not included. [facility] [address] [place] [address] Readmission: 06/11/23 Carmen Gilman is a 57 [...] cirrhosis who presents today for readmission to [facility]. He was sent out to the [...] states that he is not wanting a HYDROPONICS WORKER to place hs wound vac and demands [...] RIGHT LATERAL LEG Debridement with VERSAJET; Surgeon: ALEEXY Radford DPM; Location: Main OR; Service: Podiatry FOOT SURGERY Left MANDIBLE FRACTURE SURGERY ORTHOPEDIC SURGERY Right knee THORACIC DUCT LIGATION 01/15/2017 THORACIC DUCT LIGATION WOUND VAC Right 06/03/2023 Procedure: APPLICATION WOUND VAC; Surgeon: ALEXEY Radfodr DPM; Location: Main OR; Service: Podiatry Family [...] weekly for 3 weeks. Follow-up with the [employer] weekly And Dr. Garrett in 3 weeks. [...] 30 tablet 0 naloxone (NARCAN) 4 mg/actuation [place] Administer 1 spray into one nostril for [...] this chart may have been created with [employer] voice recognition software. Occasional wrong-word or "sound-like" substitutions may have occurred due to inherent limitations of the voice recognition software. Please read the chart carefully and recognize, using context, where the substitutions have occurred. Electronically signed by: Nathan Collins M.D. documented in this encounter [facility] 05-25-2023 Evaluation + Plan note Associated Problem(s): Ulcer of left lower leg (HCC) Present on admission, treated during hospitalization. Likely 2/2 vascular disease. He will see podiatry on 06/03. Continue with dressing changes. [facility] 05-25-2023 Miscellaneous Notes Associated Problem(s): Ulcer [...] to monitor. Patient endorses pain and request Convent Station be prescribed however he is high risk [...] to discuss this with his PCP. Per [place] laws I am unable to fill [...] ascites on exam documented in this encounter [facility] 05-25-2023 Evaluation + Plan note Associated Problem(s): Plantar ulcer of right foot (HCC) S/p debridement by podiatry on 05/23. Recommend podiatry follow up. Appt schedule on 06/03. Continue with dressing changes. [facility] 05-25-2023 Evaluation + Plan note Associated [...] Overall weak and will work with PT [facility] 05-25-2023 Evaluation + Plan note Associated Problem(s): Venous stasis dermatitis of both lower extremities 2/2 lymphedema. Continue with leg wraps daily and skin care regimen nightly. RLE swelling exacerbated with recent trauma [facility] 05-25-2023 Evaluation + Plan note Associated Problem(s): Atrial fibrillation with rapid ventricular response (HCC) Chronic problem, on cardizem. Mat have been on anticoagulation in the past but likely discontinued with his anemia. Reviewed recent echo which as normal. BP at goal < 140/90. [facility] 05-25-2023 Evaluation + Plan note Associated Problem(s): Thrombocytopenia (HCC) This is a chronic problem, is likely in the setting of his liver cirrhosis history. Last platelets were 95. We will monItor labs weekly. Consider hematology referral if platelets are less than 50. he is not having any active bleeding at this time [facility] 05-25-2023 Evaluation + Plan note Associated Problem(s): COPD (chronic obstructive pulmonary disease) (HCC) Chronic problem likely in setting of nicotine use. He does continue to smoke tobacco. We will continue his home inhalers. He is stable at this time and no signs of acute exacerbation. [facility] 05-25-2023 Evaluation + Plan note Associated Problem(s): [...] to monitor. Patient endorses pain and request Convent [place] be prescribed however he is high risk for opiate misuse so recommend nonopioid measures. [facility] 05-25-2023 Evaluation + Plan note Associated Problem(s): [...] to discuss this with his PCP. Per [place] laws I am unable to fill his Suboxone. Patient at risk for withdrawal symptoms. We will monitor him closely and treat symptoms appropriately. [facility] 05-25-2023 Evaluation + Plan note Associated [...] indication for precautions. No ascites on exam [facility] 05-24-2023 History of Present illness Narrative Images from the original note were not included. [address] [address] Admission Date 05/23/23 Carmen Gilman is a [...] to discuss this with his PCP. Per [place] laws I am unable to fill [...] to monitor. Patient endorses pain and request Convent Station be prescribed however he is high risk [...] who presents today for admission H&P to [facility]. Of note the patient did present to [place] 2 months ago however after few days [...] that during the hospitalization he was given Convent [place] for this and like to know if [...] this chart may have been created with [employer] voice recognition software. Occasional wrong-word or "sound-like" substitutions may have occurred due to inherent limitations of the voice recognition software. Please read the chart carefully and recognize, using context, where the substitutions have occurred. Electronically signed by: Nathan Collins M.D. documented in this encounter [facility] 04-26-2023 History of Present illness Narrative To all lower leg wounds, applied Aquacel Ag's and ABD's. To bilateral lower legs, applied triamcinolone, pink unna boots and coban. Pt tolerated well. Cap refill brisk. RLE completed by Vangie Lombardo LPN and LLE completed by Muna Gordillo RN. documented in this encounter [facility] 04-18-2023 History of Present illness Narrative Review [...] or muscular pain Recent travel history?No HPI Carmen Gilman 57 y.o. male presents [...] to cefadroxil however the patient did not fiber picker the medication and had been off [...] Unasyn and clindamycin. Discharge on Unsyn to [place] on 03/22 but then left AMA per [...] age Patient Teaching: Yes Family Teaching: No [place] Protocol/Time Out Completed under Procedure Documentation PROCEDURE DETAILS: Midline Insertion Procedure Veins evaluated with ultrasound and appropriate vein selected. 1% Lidocaine used to anesthetize insertion site. Using standard sterile technique access was obtained. 3 Ivorian, single lumen Midline placed in L Cephalic [...] not applicable 2. Perform timeout. Yes 3. Strategy Planning Consultant: If enter sterile field, uses sterile gown and gloves, cap, mask/eye protection. N/A 4. Prep site with ChloraPrep for 30 sec minimum (if femoral 120 sec minimum). Yes 5. Sterile technique to drape patient from head to toe. Yes During the procedure, did the clinician 1. Maintain a sterile field. Yes 2. Obtain a qualified machine tank operator IF 3 unsuccessful sticks. (except if [...] [X] Tray table within reach. Lot number: [id number] Expiration Date: 2023-10-20 Arm circumference: 29 cm [...] age Patient Teaching: Yes Family Teaching: No [place] Protocol/Time Out Completed under Procedure Documentation PROCEDURE DETAILS: Midline Insertion Procedure Veins evaluated with ultrasound and appropriate vein selected. 1% Lidocaine used to anesthetize insertion site. Using standard sterile technique access was obtained. 3 Ivorian, single lumen Midline placed in L Cephalic [...] not applicable 2. Perform timeout. Yes 3. Strategy Planning Consultant: If enter sterile field, uses sterile gown and gloves, cap, mask/eye protection. N/A 4. Prep site with ChloraPrep for 30 sec minimum (if femoral 120 sec minimum). Yes 5. Sterile technique to drape patient from head to toe. Yes During the procedure, did the clinician 1. Maintain a sterile field. Yes 2. Obtain a qualified machine tank operator IF 3 unsuccessful sticks. (except if [...] [X] Tray table within reach. Lot number: [id number] Expiration Date: 2023-10-20 Arm circumference: 29 cm [...] due to underlying liver disease -patient seeing resident associate Dr Dahl -Positive testing for positive platelet antibodies IIB/IIIA, possible ITP -Possible thalassemia, electrophoresis was not performed though according to lab review -reticulocyte percentage 2.2, iron, ferritin, B12 and folate normal in past -patient seeing resident associate Dr Dahl -Positive testing for positive platelet [...] wound/plantar -Patient saw podiatry Dr. Pelayo in [facility] and then to [facility] with Dr. Bryan; plan shave procedure once [...] Please note Portions of this note utilized [employer] software, please excuse any typographical or grammatical errors. documented in this encounter [facility] 04-07-2023 History of Present illness Narrative Review [...] to cefadroxil however the patient did not fiber picker the medication and had been off [...] Unasyn and clindamycin. Discharge on Unsyn to [place] on 03/22 but then left AMA per [...] age Patient Teaching: Yes Family Teaching: No [place] Protocol/Time Out Completed under Procedure Documentation PROCEDURE DETAILS: Midline Insertion Procedure Veins evaluated with ultrasound and appropriate vein selected. 1% Lidocaine used to anesthetize insertion site. Using standard sterile technique access was obtained. 3 Ivorian, single lumen Midline placed in L Cephalic [...] not applicable 2. Perform timeout. Yes 3. Strategy Planning Consultant: If enter sterile field, uses sterile gown and gloves, cap, mask/eye protection. N/A 4. Prep site with ChloraPrep for 30 sec minimum (if femoral 120 sec minimum). Yes 5. Sterile technique to drape patient from head to toe. Yes During the procedure, did the clinician 1. Maintain a sterile field. Yes 2. Obtain a qualified machine tank operator IF 3 unsuccessful sticks. (except if [...] [X] Tray table within reach. Lot number: [id number] Expiration Date: 2023-10-20 Arm circumference: 29 cm [...] age Patient Teaching: Yes Family Teaching: No [place] Protocol/Time Out Completed under Procedure Documentation PROCEDURE DETAILS: Midline Insertion Procedure Veins evaluated with ultrasound and appropriate vein selected. 1% Lidocaine used to anesthetize insertion site. Using standard sterile technique access was obtained. 3 Ivorian, single lumen Midline placed in L Cephalic [...] not applicable 2. Perform timeout. Yes 3. Strategy Planning Consultant: If enter sterile field, uses sterile gown and gloves, cap, mask/eye protection. N/A 4. Prep site with ChloraPrep for 30 sec minimum (if femoral 120 sec minimum). Yes 5. Sterile technique to drape patient from head to toe. Yes During the procedure, did the clinician 1. Maintain a sterile field. Yes 2. Obtain a qualified machine tank operator IF 3 unsuccessful sticks. (except if [...] [X] Tray table within reach. Lot number: [id number] Expiration Date: 2023-10-20 Arm circumference: 29 cm [...] due to underlying liver disease -patient seeing resident associate Dr Dahl -Positive testing for positive platelet antibodies IIB/IIIA, possible ITP -Possible thalassemia, electrophoresis was not performed though according to lab review -reticulocyte percentage 2.2, iron, ferritin, B12 and folate normal in past -patient seeing resident associate Dr Dahl -Positive testing for positive platelet [...] deformities -Patient saw podiatry Dr. Pelayo in [facility] and then to [facility] with Dr. Bryan; plan shave procedure once [...] Please note Portions of this note utilized [employer] dictation software, please excuse any typographical or grammatical errors. documented in this encounter [facility] 04-07-2023 Miscellaneous Notes Addended by: RESHMA GOODRICH on: 04/07/2023 12:13 PM Modules accepted: Orders documented in this encounter [facility] 04-07-2023 Note Addended by: RESHMA CHANEL on: 04/07/2023 12:13 PM Modules accepted: Orders [facility] 03-31-2023 History of Present illness Narrative Review [...] to cefadroxil however the patient did not fiber picker the medication and had been off [...] Unasyn and clindamycin. Discharge on Unsyn to [place] on 03/22 but then left AMA per [...] age Patient Teaching: Yes Family Teaching: No [place] Protocol/Time Out Completed under Procedure Documentation PROCEDURE DETAILS: Midline Insertion Procedure Veins evaluated with ultrasound and appropriate vein selected. 1% Lidocaine used to anesthetize insertion site. Using standard sterile technique access was obtained. 3 Ivorian, single lumen Midline placed in L Cephalic [...] not applicable 2. Perform timeout. Yes 3. Strategy Planning Consultant: If enter sterile field, uses sterile gown and gloves, cap, mask/eye protection. N/A 4. Prep site with ChloraPrep for 30 sec minimum (if femoral 120 sec minimum). Yes 5. Sterile technique to drape patient from head to toe. Yes During the procedure, did the clinician 1. Maintain a sterile field. Yes 2. Obtain a qualified machine tank operator IF 3 unsuccessful sticks. (except if [...] [X] Tray table within reach. Lot number: [id number] Expiration Date: 2023-10-20 Arm circumference: 29 cm [...] age Patient Teaching: Yes Family Teaching: No [place] Protocol/Time Out Completed under Procedure Documentation PROCEDURE DETAILS: Midline Insertion Procedure Veins evaluated with ultrasound and appropriate vein selected. 1% Lidocaine used to anesthetize insertion site. Using standard sterile technique access was obtained. 3 Ivorian, single lumen Midline placed in L Cephalic [...] not applicable 2. Perform timeout. Yes 3. Strategy Planning Consultant: If enter sterile field, uses sterile gown and gloves, cap, mask/eye protection. N/A 4. Prep site with ChloraPrep for 30 sec minimum (if femoral 120 sec minimum). Yes 5. Sterile technique to drape patient from head to toe. Yes During the procedure, did the clinician 1. Maintain a sterile field. Yes 2. Obtain a qualified machine tank operator IF 3 unsuccessful sticks. (except if [...] [X] Tray table within reach. Lot number: [id number] Expiration Date: 2023-10-20 Arm circumference: 29 cm [...] due to underlying liver disease -patient seeing resident associate Dr Dahl -Positive testing for positive platelet antibodies IIB/IIIA, possible ITP -Possible thalassemia, electrophoresis was not performed though according to lab review -reticulocyte percentage 2.2, iron, ferritin, B12 and folate normal in past -patient seeing resident associate Dr Dahl -Positive testing for positive platelet [...] deformities -Patient saw podiatry Dr. Pelayo in [place] and then to [facility] with Dr. Bryan; plan shave procedure once [...] Please note Portions of this note utilized [employer] dictation software, please excuse any typographical or grammatical errors. documented in this encounter [facility] 03-24-2023 Evaluation + Plan note Associated Problem(s): [...] as well as treatment of IV antibiotics. [facility] 03-24-2023 Miscellaneous Notes Associated Problem(s): Cellulitis [...] pancytopenic. Follows with Dr. Hayden, infectious disease. documented in this encounter [facility] 03-24-2023 Evaluation + Plan note Associated [...] is monitored if leaving at all times. [facility] 03-24-2023 Evaluation + Plan note Associated Problem(s): Nondependent cocaine abuse (HCC) Hospital chart reviewed. His urine drug screen did have cocaine, benzodiazepines as well as buprenorphine [facility] 03-24-2023 Evaluation + Plan note Associated [...] day for now as well. Will reassess. [facility] 03-24-2023 Evaluation + Plan note Associated Problem(s): Essential hypertension This is a chronic problem, currently controlled. Continue medications. Blood pressure goal less than 140/90. [facility] 03-24-2023 Evaluation + Plan note Associated Problem(s): COPD (chronic obstructive pulmonary disease) (HCC) Chronic problem likely in setting of nicotine use. He does continue to smoke tobacco. Reviewed his chart and onto similar inhalers. We will add on albuterol continue Symbicort. Discontinue the glycopyrrolate. Consider adding on Spiriva. [facility] 03-24-2023 Evaluation + Plan note Associated Problem(s): Chronic respiratory failure (HCC) Chronic, stable. On oxygen via nasal cannula. He does have COPD. Which is currently stable. Continue with oxygen. [facility] 03-24-2023 Evaluation + Plan note Associated Problem(s): Cirrhosis (HCC) This is a chronic problem, possibly secondary to hepatitis C infection. He is pancytopenic. Follows with Dr. Hayden, infectious disease. [facility] 03-23-2023 History of Present illness Narrative Images from the original note were not included. [address] [address] Carmen Gilman is a 57 y.o. adult [...] who presents today for admission H&P to [facility]. He was admitted to the hospital [...] ventricular response (HCC) Acute congestive heart failure ([facility]) Morbid obesity with BMI of 40.0-44.9, adult ([facility]) Type 2 diabetes mellitus without complication, without long-term current use of insulin (HCC) COPD (chronic obstructive pulmonary disease) (HCC) Hypertension Polysubstance abuse (HCC) Leukocytosis Nondependent cocaine abuse (HCC) Marijuana abuse Unresponsiveness Hypotension Acute pain of left hip Pain of left femur Sepsis ([facility]) Abnormal brain CT Bradycardia Cirrhosis (HCC) Cellulitis Past Surgical History: Procedure Laterality Date APPENDECTOMY ARTHROPLASTY KNEE TOTAL ROBOTIC ASSISTED Right 01/08/2020 Procedure: Right Total Knee Replacement Robotic; Surgeon: Sofía Dukes MD; Location: [facility] [place]; Service: Ortho-Robotics FOOT SURGERY Left MANDIBLE FRACTURE [...] this chart may have been created with [employer] voice recognition software. Occasional wrong-word or "sound-like" substitutions may have occurred due to inherent limitations of the voice recognition software. Please read the chart carefully and recognize, using context, where the substitutions have occurred. Electronically signed by: Nathan Collins M.D. documented in this encounter [facility] 03-22-2023 Nurse Note Report called to nurse at [facility]. [facility] 03-22-2023 Miscellaneous Notes Report called to nurse at [facility]. Midline catheter intact. Telemetry removed. Prescriptions sent [...] LLE dressing changed. Melatonin given for insomnia. FIRMWARE TEST ENGINEER attempted tx two times this morning, pt [...] be discharge to home. Attempted PT eval [id number]. Pt adamantly declining any participation with therapy evaluations until he receives something "stronger" for pain. Dr. Nelson notified upon entering room, and states plan to place order for medication and nurse also notified. PT to return at a later time as pt agreeable to participate. No services rendered at this time. Kayla Atwood, PT, DPT 03/17/2023 Order received. Initiated evaluation from [id number] for interview portion of evaluation. Pt's speech [...] light in reach. documented in this encounter [facility] 03-22-2023 Nurse Note Midline catheter intact. Telemetry removed. Prescriptions sent with transport in envelope. Discharged. [facility] 03-22-2023 Hospital course Narrative Discharge Summary Summary [...] Hayden following- unasyn x 14 days at [place] Drug abuse- drug screen + cocaine/benzo/buprren- home [...] diet as tolerated. Discharge Follow-up: Ani Worley APRN-[employer] [address] [facility] [place] [address] Follow up in 1 week(s) Nathan Hayden MD [address] [facility] [address] Follow up in 1 week(s) Discharge Disposition: Patient will be discharged to ECF in stable condition. Discharge Time: Including assessment, planning, and medication reconciliation was 9 minutes Jolanta Crook CNP completing Discharge Summary for Dr. Nelson Please note portions of this note utilized [employer] dictation software, please excuse any typographical or [...] spent 34 min documented in this encounter [facility] 03-22-2023 History of Present illness Narrative Images [...] to cefadroxil however the patient did not fiber picker the medication and had been off [...] issues or concerns today. Pending transfer to [facility]. Legs dressed bilaterally ROS A complete review [...] 8 mg, Sublingual, Daily, Jolanta K Sgambellone, ORAL AND MAXILLOFACIAL SURGERY-RETURNED GOODS SORTER, 8 mg at 03/22/23 0755 collagenase (SANTYL) [...] mg, 40 mg, Oral, Daily, Jolanta Crook ORAL AND MAXILLOFACIAL SURGERY-RETURNED GOODS SORTER, 40 mg at 03/22/23 075 Gabapentin (NEURONTIN) capsule 400 mg, 400 mg, Oral, 4x daily, Isabel Tang CNP, 400 mg at 03/22/23 075 hydrOXYzine HCl (ATARAX) tablet 25 mg, 25 mg, Oral, TID PRN, Isabel Tang CNP, 25 mg at 03/21/232102 Ipratropium-albuterol (DUONEB) 0.5-2.5 (3) MG/3ML nebulizer solution 3 mL, 3 mL, Nebulization, Q4H PRN, Isabel Tnag CNP Ketorolac (TORADOL) injection 15 mg, 15 [...] mg, 4 mg, Intravenous, Q4H PRN, Nestor Alozno MD Pantoprazole (PROTONIX) tablet DR 40 mg, [...] <50 IU/L Final Comment: Testing performed at [place], [place] [address] 03/16/2023 05:53 PM 21 <50 IU/L Final [...] other than and . Testing performed at [place], [place] [address] CBC Lab Results Component Value Date WBC [...] to Top Result Report CULTURE WOUND (Order #[id number]) on 03/11/23 View [email or web address] Info CULTURE WOUND (Order #[id number]) on 03/11/23 CULTURE WOUND: Patient Communication Add Comments Not seen Collection Information Specimen ID: [id number] Swab LEG Collected: 03/11/2023 12:23 PM 200 Received: 03/11/2023 12:23 PM Resulting Agency: [facility] - [address] [facility] [address] [place] [address] Wound culture 02/27 with MSSA Staphylococcus aureus [...] due to underlying liver disease -patient seeing resident associate Dr Dahl -Positive testing for positive platelet antibodies IIB/IIIA, possible ITP -Possible thalassemia, electrophoresis was not performed though according to lab review -reticulocyte percentage 2.2, iron, ferritin, B12 and folate normal in past -patient seeing resident associate Dr Dahl -Positive testing for positive platelet [...] deformities -Patient saw podiatry Dr. Pelayo in [facility] and then to [facility] with Dr. Bryan; plan shave procedure once [...] show reactive adenopathy COPD.RAD -inhalers/BTs Disposition -Pending [facility] in [place] -follow up in infectious disease clinic 7 [...] OTR/L 03/22/2023 Call received from [facility]. They have received prior auth for Mr [...] ecf auth pending See orders [facility] here and has met with Mr Gilman. She states they will accept Mr Gilman and have will start prior auth. Updated clinical sent to [facility]. She states they have not started prior auth yet. Fighters has instructed she do an on sight [...] mg 8 mg Sublingual Daily Jolantamia Ramirezne, ORAL AND MAXILLOFACIAL SURGERY-RETURNED GOODS SORTER 8 mg at 03/21/23 0833 collagenase (SANTYL) [...] mg 40 mg Oral Daily Jolanta Crook, ORAL AND MAXILLOFACIAL SURGERY-RETURNED GOODS SORTER 40 mg at 03/21/23 0833 Gabapentin (NEURONTIN) [...] and cellulitis of BLE. Estimated needs: Calories: 5850-9135 kcal, (25-30 kcal/kg AdjBW), Protein: 105-130 g [...] Subjective Reports This PT approached by nursing assistant. States patient would like to get up to chair and requests assistance. Cognitive Status Examination Level of Consciousness alert;cooperative Personal Safety and Judgment at risk behaviors demonstrated Objective Therapeutic Interventions Patient sitting EOB upon arrival, requesting to get up to chair. Socks donned by nursing assistant. He requested height of bed be elevated [...] to cefadroxil however the patient did not fiber picker the medication and had been off [...] his legs are improving. Pending transfer to [facility]. Midline was ordered already and pending results. [...] 8 mg, Sublingual, Daily, Jolanta K Sgambellone, ORAL AND MAXILLOFACIAL SURGERY-RETURNED GOODS SORTER, 8 mg at 03/21/23 0833 collagenase (SANTYL) [...] mg, 40 mg, Oral, Daily, Jolanta Ramirezne, ORAL AND MAXILLOFACIAL SURGERY-RETURNED GOODS SORTER, 40 mg at 03/21/23 0833 Gabapentin (NEURONTIN) [...] <50 IU/L Final Comment: Testing performed at [place], [place] [address] 03/16/2023 05:53 PM 21 <50 IU/L Final [...] other than and . Testing performed at [place], [place] [address] CBC Lab Results Component Value Date WBC [...] to Top Result Report CULTURE WOUND (Order #[id number]) on 03/11/23 View SmartLink Info CULTURE WOUND (Order #[id number]) on 03/11/23 CULTURE WOUND: Patient Communication Add Comments Not seen Collection Information Specimen ID: [id number] Swab LEG Collected: 03/11/2023 12:23 PM 200 Received: 03/11/2023 12:23 PM Resulting Agency: [address] [address] Wound culture 02/27 with MSSA Staphylococcus aureus [...] due to underlying liver disease -patient seeing resident associate Dr Dahl -Positive testing for positive platelet antibodies IIB/IIIA, possible ITP -Possible thalassemia, electrophoresis was not performed though according to lab review -reticulocyte percentage 2.2, iron, ferritin, B12 and folate normal in past -patient seeing resident associate Dr Dahl -Positive testing for positive platelet [...] deformities -Patient saw podiatry Dr. Pelayo in [facility] and then to [facility] with Dr. Bryan; plan shave procedure once [...] -patient states he wishes to go to [facility] in [place] -follow up in infectious disease clinic 7-10 days after discharge Nathan Hayden MD [facility] LOS: 4 days SUBJECTIVE: Patient resting in [...] Q6H Nestor Alonzo MD 200 mL/hr at 03/20/23 0559 3 g at 03/20/23 0559 bisacodyl (DULCOLAX) suppository 10 mg 10 mg Rectal Daily PRN Nestor Alonzo MD Buprenorphine (SUBUTEX) sublingual tablet 8 mg 8 mg Sublingual Daily Jolanta K Sgambellone, ORAL AND MAXILLOFACIAL SURGERY-RETURNED [employer] SORTER collagenase (SANTYL) ointment 1 Application 1 Application [...] elements of the care plan with the METALLURGICAL LAB TECHNICIAN and I agree with the findings and [...] to cefadroxil however the patient did not fiber picker the medication and had been off [...] 8 mg, Sublingual, Daily, Jolanta K Sgambellone, ORAL AND MAXILLOFACIAL SURGERY-RETURNED GOODS SORTER, 8 mg at 03/20/23 1007 collagenase (SANTYL) [...] 40 mg, Oral, Daily, Jolanta Payan Sgambellone, ORAL AND MAXILLOFACIAL SURGERY-RETURNED GOODS SORTER, 40 mg at 03/20/23 1110 Gabapentin (NEURONTIN) [...] other than and . Testing performed at [facility], [place], [place] [address] CBC Lab Results Component Value Date WBC [...] to Top Result Report CULTURE WOUND (Order #[id number]) on 03/11/23 View [email or web address] Info CULTURE WOUND (Order #[id number]) on 03/11/23 CULTURE WOUND: Patient Communication Add Comments Not seen Collection Information Specimen ID: [id number] Swab LEG Collected: 03/11/2023 12:23 PM 200 Received: 03/11/2023 12:23 PM Resulting Agency: [facility] - [address] [facility] [address] [facility] [address] Wound culture 02/27 with MSSA Staphylococcus aureus [...] due to underlying liver disease -patient seeing resident associate Dr Dahl -Positive testing for positive platelet antibodies IIB/IIIA, possible ITP -Possible thalassemia, electrophoresis was not performed though according to lab review -reticulocyte percentage 2.2, iron, ferritin, B12 and folate normal in past -patient seeing resident associate Dr Dahl -Positive testing for positive platelet antibodies IIB/IIIA, possible ITPl Soluble transferrin elevated 27 -White count 2.2, 2.5, 2.6, 2.1 -Hemoglobin 10, 9.9, 9.3, 9.8 -Platelets of 91, 81, 87, 94 -Stably low Obesity -Patient with ongoing efforts to lose weight -BMI 31 Right lower extremity wound/feet& toe deformities -Patient saw podiatry Dr. Pelayo in [place] and then to [facility] with Dr. Bryan; plan shave procedure once [...] -patient states he wishes to go to [facility] and Mary Hayden MD [facility] LOS: 3 days SUBJECTIVE: Patient resting in [...] Daily Isabel Tang CNP 40 mg at 03/19/23 0811 Potassium [...] Please note Portions of this note utilized [employer] dictation software, please excuse any typographical or grammatical errors. Associated attestation - Power Nelson MD - 03/20/2023 8:47 PM EDT Pt seen and examined on march 19 2023 I have independently interviewed and examined the patient. I have discussed armijo elements of the care plan with the METALLURGICAL LAB TECHNICIAN and I agree with the findings and [...] to cefadroxil however the patient did not fiber picker the medication and had been off [...] Patient states he wants to go to [facility] facility. Patient states right upper extremity [...] other than and . Testing performed at [facility], [place], [place] [address] CBC Lab Results Component Value Date WBC [...] to Top Result Report CULTURE WOUND (Order #[id number]) on 03/11/23 View SmartLink Info CULTURE WOUND (Order #[id number]) on 03/11/23 CULTURE WOUND: Patient Communication Add Comments Not seen Collection Information Specimen ID: [id number] Swab LEG Collected: 03/11/2023 12:23 PM 200 Received: 03/11/2023 12:23 PM Resulting Agency: [facility] - [address] [place] [address] [address] [facility] [address] Wound culture 02/27 with MSSA Staphylococcus aureus [...] due to underlying liver disease -patient seeing resident associate Dr Dahl -Positive testing for positive platelet antibodies IIB/IIIA, possible ITP -Possible thalassemia, electrophoresis was not performed though according to lab review -reticulocyte percentage 2.2, iron, ferritin, B12 and folate normal in past -patient seeing resident associate Dr Dahl -Positive testing for positive platelet antibodies IIB/IIIA, possible ITPl Soluble transferrin elevated 27 -White count 2.2, 2.5, 2.6 -Hemoglobin 10, 9.9, 9.3 -Platelets of 91, 81, 87 -Stably low Obesity -Patient with ongoing efforts to lose weight -BMI 31 Right lower extremity wound/feet& toe deformities -Patient saw podiatry Dr. Pelayo in [facility] and then to [facility] with Dr. Bryan; plan shave procedure once [...] -patient states he wishes to go to [facility] and [place] Dr. Nathan Hayden MD 03/18/23 1600 Time [...] Rest 8- severe pain Objective Therapeutic Interventions FIRMWARE TEST ENGINEER instructed pt in supine to sit EOB, [...] and all needs met. Meron Arias PTA [facility] LOS: 2 days SUBJECTIVE: Patient resting in [...] Please note Portions of this note utilized [employer] dictation software, please excuse any typographical or grammatical errors. Associated attestation - Power Nelson MD - 03/18/2023 7:41 PM EDT I have independently interviewed and examined the patient. I have discussed armijo elements of the care plan with the METALLURGICAL LAB TECHNICIAN and I agree with the findings and [...] patient, he asks about a referral to [facility]. Updated him on where things stand with [facility], he's still agreeable to [facility] at discharge but wants to try [facility] now. Spoke with Mireille at [facility], they do not take patient's insurance. Updated patient who will stick with [facility]. Followed up with [facility]. They are unable [...] to cefadroxil however the patient did not fiber picker the medication and had been off [...] volume), 2 g, Intravenous, Daily, Isabel Tang CNP Melatonin tablet 6 mg, 6 mg, [...] other than and . Testing performed at [place], [place] [address] CBC Lab Results Component Value Date WBC [...] to Top Result Report CULTURE WOUND (Order #[id number]) on 03/11/23 View [email or web address] Info CULTURE WOUND (Order #[id number]) on 03/11/23 CULTURE WOUND: Patient Communication Add Comments Not seen Collection Information Specimen ID: [id number] Swab LEG Collected: 03/11/2023 12:23 PM 200 Received: 03/11/2023 12:23 PM Resulting Agency: [facility] - [address] [place] [address] Wound culture 02/27 with MSSA Staphylococcus aureus [...] due to underlying liver disease -patient seeing resident associate Dr Dahl -Positive testing for positive platelet antibodies IIB/IIIA, possible ITP -Possible thalassemia, electrophoresis was not performed though according to lab review -White count 2.2, 2.5 -Hemoglobin 10, 9.9 -Platelets of 91, 81 -reticulocyte percentage 2.2, iron, ferritin, B12 and folate normal in past -patient seeing resident associate Dr Dahl -Positive testing for positive platelet antibodies IIB/IIIA, possible ITPl Soluble transferrin elevated 27 Obesity -Patient with ongoing efforts to lose weight -BMI 31 Right lower extremity wound/feet& toe deformities -Patient saw podiatry Dr. Pelayo in [facility] and then to [facility] with Dr. Bryan; plan shave procedure once [...] digna faxed with encryption to Gaby at [facility]. 03/17/23 1436 Time In/Out Time In 1405 Time Out 1436 Total Visit Time 31 minutes Total Treatment Time (skilled, billable minutes) 29 minutes + 14 minutes from earlier encounter and interview with pt from 3021-3524. Split evaluation secondary to pt declining to [...] receiving pain medication. Relayed to pt that RETURNED GOODS SORTER, RN, and physician are all aware and [...] > LLE edema Supine to Sit Mobility [place] Level: Supine->Sit stand-by assist Physical Assist: Supine->Sit (1 person assist) Bed Features/Set-up: Supine->Sit Head of bed elevated Sit to Stand Transfer [place] Level: Sit->Stand moderate assist (50% patient effort) [...] less physical assistance. Stand to Sit Transfer [place] Level: Stand->Sit contact guard assist Assistive Device: Stand->Sit gait belt;2 wheeled walker Skilled Rationale Positioning;Sequencing;Hand placement;Verbal cues;Cues for increased safety Functional Mobility [place] Level: Functional Mobility/Gait minimum assist (75% patient [...] (range of motion);strengthening;transfer training Discharge Destination Recommendation Half-Way Facility Barriers to discharge home Patient needs [...] at friends house he was living in. trail construction worker aware of situation. Previous Level of [...] to conceal chewing tobacco within R hand armature varnisher. Pt receptive to hand placement on walker with hand over hand assist for safety Supine to Sit Mobility [place] Level: Supine->Sit stand-by assist Physical Assist: Supine->Sit 1 person + 1 person to manage equipment Bed Features/Set-up: Supine->Sit Head of bed elevated (slightly) Sit to Stand Transfer [place] Level: Sit->Stand (Mod A x 2) Assistive Device: Sit->Stand gait belt;2 wheeled walker Skilled Rationale Positioning;Verbal cues;Hand placement;Full extension to upright positioning/posture;Finding/maint aining midline positioning;Cues for increased safety Stand to Sit Transfer [place] Level: Stand->Sit contact guard assist Physical Assist: Stand->Sit 2 person assist Assistive Device: Stand->Sit gait belt;2 wheeled walker;armed chair Skilled Rationale Positioning;Verbal cues;Hand placement;Controlled descent for sitting Bed-Chair Transfer [place] Level: Bed<->Chair (Mod A x 2 for initial stand; transfer improved to Min-CGA x 2 for remainder of transfer.) Physical Assist: Bed<->Chair 2 person assist Assistive Device: Bed<->Chair gait belt;2 wheeled walker;armed chair Skilled Rationale Positioning;Hand placement;Verbal cues;Full extension to upright positioning/posture Gait Assessment Skilled Intervention/Details - Gait refused gait beyond transfer to chair CURRENT [facility] Basic Mobility Inpatient Short Form Turning over [...] a railing 1 - Total Assistance CURRENT [facility] Mobility Raw Score 15 CURRENT [facility] Mobility Functional Limitation/Modifier 57.70% Currently Impaired in [...] mobility;Reaching difficulty;Difficulty carrying/lifting objects;Limited ability to complete technical services librarian/maintenance;Limited standing tolerance Barriers to Treatment (Co-Morbidities and/or Personal Factors) patient agitation, anemia, BLE cellulits Rehab Potential (PT Eval) good Therapy Frequency 6 times a week (1-2x/day as tolerated) Planned Therapy Interventions balance training;bed mobility training;endurance;functional activity tolerance;gait training;postural re-education;ROM;strengthening;tr ansfer training;stretching;wheelchair management/propulsion training;edema control Discharge Destination Recommendation Half-Way Facility Barriers to discharge home Patient needs [...] is a 57 yo male presenting to [facility] with BLE edema. PT evaluation completed as [...] information faxed with encryption to Gaby at [facility]. Will send PT/ OT evals when available. Spoke with Daria at [facility]. They are no longer providing home health services as patient requested discharge on 03/15/23. Summary: RD Progress Note INITIAL INPATIENT NUTRITION ASSESSMENT Mr. Carmen Gilman is a 57 y.o. male was admitted to [facility] for: No diagnosis found. Nutrition Assessment Subjective [...] 09/29/22 101.7 kg (224 lb 3.2 oz) [place] body weight: 77.6 kg (171 lb 1.9 oz) Adjusted ideal body weight: 88.3 kg (194 lb 10.7 oz) Body mass index is 31.19 kg/m . Classified as: Class I Obesity Recent weight loss: No Intake Evaluation: EER: Calories: 5675-8345 kcal (25-30 kcal/kg AdjBW) Protein: 105-130 g [...] placement at discharge. His first choice is [facility] and his second choice is [facility]. He begins talking about being in pain and is requesting IV pain medication. Unable to understand anything else patient is attempting to say. Called and spoke with Gaby Laguerre in admissions at [facility]. She is requesting referral information be emailed to her at [email or web address]. Will email referral when needed documentation is available. Will continue to follow. documented in this encounter [facility] 03-22-2023 Progress note Formatting of t his note might be different from the original. Multiple attempts this morning for PT tx, pt declined with reasons being awaiting breakfast and had just received pain medication. Then, just finished OT and wished to eat ice cream. No PT tx rendered [facility] 03-22-2023 Progress note Formatting of t his note might be different from the original. Approached pt for OT treatment but pt currently eating breakfast at this time. Will follow up for OT treatment as pt is available and appropriate. ROSA Moreno, OTR/L 03/22/2023 [facility] 03-21-2023 Nurse Note Assessment unchanged from previous unless otherwise noted. [facility] 03-21-2023 Progress note Formatting of t his note might be different from the original. Patient being assisted back to bed by staff upon PT arrival. States he has been up in chair and requests to rest at this time. Will follow. [facility] 03-21-2023 Hospital Discharge instructions Isabel Tang CNP - 03/21/2023 1:43 PM EDT Unasyn IV per DR Hayden at [facility] The following attachments cannot be sent through Care Everywhere.[facility] ([facility]) (Algerian)documented in this encounter [facility] 03-21-2023 Nurse Note Assessment unchanged from previous unless otherwise noted. [facility] 03-21-2023 Procedure note Associated Ord er(s): PICC LINE PLACEMENT/REMOVAL; PICC LINE PLACEMENT/REMOVAL I have discussed the following issues with the ordering Clinician: Dr. Hayden Procedure explained to patient. Anatomical distortion to interfere with placement:no known restriction Arm preference for venous access: Left Arm Patient is alert, cooperative, no distress, appears stated age Patient Teaching: Yes Family Teaching: No [place] Protocol/Time Out Completed under Procedure Documentation PROCEDURE DETAILS: Midline Insertion Procedure Veins evaluated with ultrasound and appropriate vein selected. 1% Lidocaine used to anesthetize insertion site. Using standard sterile technique access was obtained. 3 Ivorian, single lumen Midline placed in L Cephalic [...] not applicable 2. Perform timeout. Yes 3. Strategy Planning Consultant: If enter sterile field, uses sterile gown and gloves, cap, mask/eye protection. N/A 4. Prep site with ChloraPrep for 30 sec minimum (if femoral 120 sec minimum). Yes 5. Sterile technique to drape patient from head to toe. Yes During the procedure, did the clinician 1. Maintain a sterile field. Yes 2. Obtain a qualified machine tank operator IF 3 unsuccessful sticks. (except if [...] [X] Tray table within reach. Lot number: [id number] Expiration Date: 2023-10-20 Arm circumference: 29 cm Internal length: 11 cm External length: 0 cm [facility] 03-21-2023 Procedure note Associated Ord er(s): PICC LINE PLACEMENT/REMOVAL; PICC LINE PLACEMENT/REMOVAL I have discussed the following issues with the ordering Clinician: Dr. Hayden Procedure explained to patient. Anatomical distortion to interfere with placement:no known restriction Arm preference for venous access: Left Arm Patient is alert, cooperative, no distress, appears stated age Patient Teaching: Yes Family Teaching: No [place] Protocol/Time Out Completed under Procedure Documentation PROCEDURE DETAILS: Midline Insertion Procedure Veins evaluated with ultrasound and appropriate vein selected. 1% Lidocaine used to anesthetize insertion site. Using standard sterile technique access was obtained. 3 Ivorian, single lumen Midline placed in L Cephalic [...] not applicable 2. Perform timeout. Yes 3. Strategy Planning Consultant: If enter sterile field, uses sterile gown and gloves, cap, mask/eye protection. N/A 4. Prep site with ChloraPrep for 30 sec minimum (if femoral 120 sec minimum). Yes 5. Sterile technique to drape patient from head to toe. Yes During the procedure, did the clinician 1. Maintain a sterile field. Yes 2. Obtain a qualified machine tank operator IF 3 unsuccessful sticks. (except if [...] [X] Tray table within reach. Lot number: [id number] Expiration Date: 2023-10-20 Arm circumference: 29 cm Internal length: 11 cm External length: 0 cm documented in this encounter [facility] 03-21-2023 Plan of care note Problem: Skin [...] encouraged Pressure Reduction Devices: pressure-redistributing mattress utilized [facility] 03-21-2023 Nurse Note Pt appears asleep at this time with no distress noted and unlabored breathing on room air. Call hinkle is in reach. [facility] 03-21-2023 Nurse Note Assessment remains unchanged unless otherwise noted in flow sheet. Pt medicated via MAR for 8/10 leg pain and ATB hung. Ice cream given per request and denies any other needs. Call hinkle is in reach. [facility] 03-20-2023 Nurse Note Pt appears asleep at this time with no distress noted. Unlabored breathing on room air. Dressings appear dry and intact. Call hinkle is in reach. [facility] 03-20-2023 Nurse Note Assessment unchanged from previous assessment by this RN unless otherwise noted in the flowsheet. Patient appears comfortable, no signs of distress. Call light within reach. [facility] 03-20-2023 Nurse Note Assessment unchanged from previous assessment by this RN unless otherwise noted in the flowsheet. Patient appears comfortable, no signs of distress. Call light within reach. [facility] 03-20-2023 Plan of care note Problem: Skin [...] decrease fall risk at discharge. Outcome: Ongoing [facility] 03-20-2023 Nurse Note Pt resting in bed with eyes closed. Respirations even and non-labored. Assessment without changes. HOB up. Call light in reach. [facility] 03-20-2023 Nurse Note Pt resting in bed with eyes open. Alert and oriented x3. Pt requesting pain medication for bilateral leg and generalized pain. Pt rates pain 8/10 on pain scale. Medicated with Dilaudid as ordered. Assessment unchanged at this time. HOB up. Call light in reach. [facility] 03-19-2023 Nurse Note Pt sitting up in chair at bedside. Assisted to bed at this time. Pt medicated with Dilaudid for c/o pain to BLE. Pt alert and oriented x3. Speech is garbled and difficult to understand. Lung sound clear but diminished. Dressing clean, dry and intact to BLE. Edema remains to BLE. HOB up. Call light in reach. [facility] 03-19-2023 Nurse Note Assessment unchanged from previous assessment by this RN unless otherwise noted in the flowsheet. Patient appears comfortable, no signs of distress. Call light within reach. [facility] 03-19-2023 Nurse Note Assessment unchanged from previous assessment by this RN unless otherwise noted in the flowsheet. Patient appears comfortable, no signs of distress. Call light within reach. [facility] 03-19-2023 Nurse Note Previous assessment unchanged. [facility] 03-19-2023 Plan of care note Problem: Skin [...] decrease fall risk at discharge. Outcome: Ongoing [facility] 03-19-2023 Nurse Note Previous assessment unchanged. LLE dressing changed. Melatonin given for insomnia. [facility] 03-18-2023 Progress note Formatting of t his note might be different from the original. FIRMWARE TEST ENGINEER attempted tx two times this morning, pt declined both stating I haven't had pain meds and I can't do anything without them." Educated pt on importance of getting up and participating in strengthening and mobility exercises to get better and stay strong but pt continued to decline tx. No services rendered. Meron Arias PTA [facility] 03-18-2023 Nurse Note Patient refused. Patient not in weigh bed. RN notified [facility] 03-18-2023 Plan of care note Problem: Skin [...] Excess Moisture Flowsheets Taken 03/17/2023 2000 by Meorn Back Hygiene Care: bedtime care cervical collar care dressed/undressed back care shampoo Taken 03/17/2023 0949 by Mariella Singh RN Skin Protection: adhesive use limited Intervention: Prevent/Minimize Sheer/Friction Injuries Flowsheets Taken 03/18/2023 0000 by Meron Back Positioning/Transfer Devices: pillows Taken 03/17/2023 0949 by Mariella Singh RN Pressure Reduction Techniques: frequent weight shift encouraged Pressure Reduction Devices: pressure-redistributing mattress utilized [facility] 03-18-2023 Nurse Note Pt appears asleep at this time with no distress noted. Unlabored breathing on room air. IV infusing at this time and call hinkle is in reach. [facility] [employer] 03-18-2023 Nurse Note Assessment remains unchanged unless otherwise noted in flow sheet. Pt medicated for 9/10 leg pain via MAR. IV infusing and call hinkle is in reach. Pt requests a Pepsi and strawberry ice cream. [facility] 03-17-2023 Progress note Formatting of t his note might be different from the original. I certify that this patient requires inpatient services at this time. Plans for post hospitalization care will be discharge to home. [facility] 03-17-2023 History and physical note Chief Complaint: [...] Please note Portions of this note utilized [employer] dictation software, please excuse any typographical or grammatical errors. Associated attestation - Power Nelson MD - 03/17/2023 9:09 PM EDT I have independently interviewed and examined the patient. I have discussed armijo elements of the care plan with the METALLURGICAL LAB TECHNICIAN and I agree with the findings and care plan as stated above. Time spent performing exam and reviewing diagnostics results, images and labs and discussing care plan with nurse practitioner and consulting physicians was 76 minutes D/w dr alonzo Pt transferred from [facility] to [facility] Failed outpt atbx therapy Dr hayden to see Iv atbx Wound care Pt complaints of pain Heart rrr Lungs clear Abd soft bs+ ascites Legs bilat edemas and wounds See orders [facility] 03-17-2023 History and physical note Chief Complaint: [...] Please note Portions of this note utilized [employer] dictation software, please excuse any typographical or grammatical errors. Associated attestation - Power Nelson MD - 03/17/2023 9:09 PM EDT I have independently interviewed and examined the patient. I have discussed armijo elements of the care plan with the METALLURGICAL LAB TECHNICIAN and I agree with the findings and care plan as stated above. Time spent performing exam and reviewing diagnostics results, images and labs and discussing care plan with nurse practitioner and consulting physicians was 76 minutes D/w dr alonzo Pt transferred from [facility] to [facility] Failed outpt atbx therapy Dr hayden to see Iv atbx Wound care Pt complaints of pain Heart rrr Lungs clear Abd soft bs+ ascites Legs bilat edemas and wounds See orders documented in this encounter [facility] 03-17-2023 Progress note Formatting of t his note might be different from the original. Attempted PT eval [id number]. Pt adamantly declining any participation with therapy evaluations until he receives something "stronger" for pain. Dr. Nelson notified upon entering room, and states plan to place order for medication and nurse also notified. PT to return at a later time as pt agreeable to participate. No services rendered at this time. Kayla Atwood, PT, DPT 03/17/2023 [facility] 03-17-2023 Progress note Formatting of t his note might be different from the original. Order received. Initiated evaluation from [id number] for interview portion of evaluation. Pt's speech [...] agreeable for participation. ROSA Cosby, OTR/L 03/17/2023 [facility] 03-17-2023 Consult note Associated Order (s): IP [...] to cefadroxil however the patient did not fiber picker the medication and had been off [...] other than and . Testing performed at [place], [place] [address] CBC Lab Results Component Value Date WBC [...] to Top Result Report CULTURE WOUND (Order #[id number]) on 03/11/23 View [email or web address] Info CULTURE WOUND (Order #[id number]) on 03/11/23 CULTURE WOUND: Patient Communication Add Comments Not seen Collection Information Specimen ID: [id number] Swab LEG Collected: 03/11/2023 12:23 PM 200 Received: 03/11/2023 12:23 PM Resulting Agency: [address] [facility] [address] Wound culture 02/27 with MSSA Staphylococcus aureus [...] due to underlying liver disease -patient seeing resident associate Dr Dahl -Positive testing for positive platelet antibodies IIB/IIIA, possible ITP -Possible thalassemia, electrophoresis was not performed though according to lab review -White count 2.2 -Hemoglobin 10 -Platelets of 01 -reticulocyte percentage 2.2, iron, ferritin, B12 and folate normal in past -patient seeing resident associate Dr Dahl -Positive testing for positive platelet antibodies IIB/IIIA, possible ITPl Soluble transferrin elevated 27 Obesity -Patient with ongoing efforts to lose weight -BMI 31 Right lower extremity wound/feet& toe deformities -Patient saw podiatry Dr. Pelayo in [facility] and then to [facility] with Dr. Bryan; plan shave procedure once [...] you for this consultation Nathan Hayden MD [facility] 03-17-2023 Consult note Associated Order (s): IP [...] to cefadroxil however the patient did not fiber picker the medication and had been off [...] BACK BY HARDY HUTCHINS [facility] 02/26/2023 09:32 PM 2.9 (L) 3.6 [...] other than and . Testing performed at [facility], [place], [place] [address] CBC Lab Results Component Value Date WBC [...] to Top Result Report CULTURE WOUND (Order #[id number]) on 03/11/23 View [email or web address] Info CULTURE WOUND (Order #[id number]) on 03/11/23 CULTURE WOUND: Patient Communication Add Comments Not seen Collection Information Specimen ID: [id number] Swab LEG Collected: 03/11/2023 12:23 PM 200 Received: 03/11/2023 12:23 PM Resulting Agency: [facility] - [address] [place] [address] Wound culture 02/27 with MSSA Staphylococcus aureus [...] due to underlying liver disease -patient seeing resident associate Dr Dahl -Positive testing for positive platelet antibodies IIB/IIIA, possible ITP -Possible thalassemia, electrophoresis was not performed though according to lab review -White count 2.2 -Hemoglobin 10 -Platelets of 01 -reticulocyte percentage 2.2, iron, ferritin, B12 and folate normal in past -patient seeing resident associate Dr Dahl -Positive testing for positive platelet antibodies IIB/IIIA, possible ITPl Soluble transferrin elevated 27 Obesity -Patient with ongoing efforts to lose weight -BMI 31 Right lower extremity wound/feet& toe deformities -Patient saw podiatry Dr. Pelayo in [place] and then to [facility] with Dr. Bryan; plan shave procedure once [...] Nathan Hayden MD documented in this encounter [facility] 03-17-2023 Plan of care note Problem: Skin [...] outcomes by discharge/transition of care. Outcome: Ongoing [facility] 03-17-2023 Nurse Note Pt resting in bed with eyes closed. Respirations even and non-labored. Assessment without changes. Pillow provided to elevate left leg for comfort as requested. Call light in reach. [facility] 03-17-2023 Nurse Note Pt unable to stand for daily weight and bed does not have scale to weigh patient. [facility] 03-16-2023 Nurse Note Pt resting in bed [...] painful to touch. Call light in reach. [facility] 03-16-2023 Emergency department Note Transport here to take pt to [facility] and gave report to Nolvia director of sports medicine [facility] 03-16-2023 Emergency department Note Transport here to take pt to [facility] and gave report to Nolvia director of sports medicine [facility] took patient to [facility] [address] [facility] contacted for transfer. Patient will go to room 264. Call [phone] to be forwarded to [place]. Continuation of Emergency Department Encounter I assumed [...] time there are no beds available at [facility]. I spoke to the patient about the risks and benefits of transfer. He voiced understanding and gave verbal consent. I spoke to the nursing supervisor [employer] who is making arrangements for a bed to [facility]. Dr. Nelson contacted and will care for the patient in the [facility]. Transfer paper filled out and placed on chart. I spoke with the nursing supervisor [employer]. As the patient has failed outpatient antibiotic therapy he will meet inpatient criteria. No follow-ups on file. New Prescriptions No medications on file Discontinued Medications No medications on file An after visit summary was printed and given to the patient with the above information. Portions of this chart were created using [employer] electronic dictation. Please excuse any typographical or [...] at this time documented in this encounter [facility] 03-16-2023 Emergency department Note [facility] took patient to [facility] 264 [facility] 03-16-2023 Emergency department Note [facility] contacted for transfer. Patient will go to room 264. Call [phone] to be forwarded to [place]. [facility] 03-16-2023 Physician Emergency department Note Continuation of [...] time there are no beds available at [facility]. I spoke to the patient about the risks and benefits of transfer. He voiced understanding and gave verbal consent. I spoke to the nursing supervisor [employer] who is making arrangements for a bed to [facility] in [facility]. Dr. Nelson contacted and will care for the patient in the [facility] in hospital. Transfer paper filled out and placed on chart. I spoke with the nursing supervisor [employer]. As the patient has failed outpatient antibiotic therapy he will meet inpatient criteria. No follow-ups on file. New Prescriptions No medications on file Discontinued Medications No medications on file An after visit summary was printed and given to the patient with the above information. Portions of this chart were created using [employer] electronic dictation. Please excuse any typographical or grammatical errors contained herein. Nestor Alonzo MD 03/16/232007 [facility] 03-16-2023 Emergency department Note Paged Dr Nelson per Dr Alonzo request [facility] 03-16-2023 Emergency department Note Received report from Aide MENDOZA [facility] 03-16-2023 Emergency department Note US at bedside [facility] 03-16-2023 Physician Emergency department Note Patient was [...] trauma or fracture Shai Leonard MD 03/16/23 7729 [facility] Work Phone: 03-16-2023 Emergency department Note Pt has been brought back to room 5 at this time [facility] 02-26-2023 Emergency department Note Zach MARTE RN (kara) notified. [facility] 02-26-2023 Emergency department Note Zach MARTE RN (kara) notified. Bed assignment #208 [facility], report # [id number], RN notified. [facility] called back with room assignment. Patient will go to room 208. Call [phone] rodríguez for nuno dumont. [facility] contacted for transfer. Will call back with room assignment. Called dr rodríguez for nuno dumont. Left voicemail. Images from the original note were not included. Emergency Department Report [facility] EMERGENCY DEPARTMENT Service Date:.02/26/23 PCP: Ani Wroley Chief Complaint: Chief Complaint Patient presents with [...] metal pedal of a workshop bike in [place]. He has not seek care for the wound he states that he took paper towels from a [employer] restaurant and tape gum to his leg. [...] with overfill 565 mL (total volume) IVPB Ybmfvbv-Nlyguh-Esjzb Pertussis (BOOSTRIX) syringe 0.5 mL Bacitracin ointment [...] reviewed patient is accepted for transfer to [facility]. Patient is alert oriented stable at [...] with above information. . . Nuno Dumont, SKYLER-RETURNED GOODS SORTER 02/26/23 5775 Patients Daughter Ginny West [phone] notified of admission per patients request. Patient [...] that he is following Podiatry for Shai eLonard MD 02/26/232132 documented in this encounter [facility] 02-26-2023 Emergency department Note Bed assignment #208 [facility], report # [id number], RN notified. [facility] 02-26-2023 Emergency department Note [facility] called back with room assignment. Patient will go to room 208. Call [phone] for report. [facility] 02-26-2023 Emergency department Note Called dr rodríguez for nuno dumont. [facility] 02-26-2023 Emergency department Note [facility] contacted for transfer. Will call back with room assignment. [facility] 02-26-2023 Emergency department Note Called dr rodríguez for nuno dumont. Left voicemail. [facility] 02-26-2023 Physician Emergency department Note Images from the original note were not included. Emergency Department Report [facility] EMERGENCY DEPARTMENT Service Date:.02/26/23 PCP: Ani Worley [...] metal pedal of a workshop bike in [place]. He has not seek care for the wound he states that he took paper towels from a [employer] restaurant and tape gum to his leg. [...] with overfill 565 mL (total volume) IVPB Nseawpm-Rxnabd-Qysar Pertussis (BOOSTRIX) syringe 0.5 mL Bacitracin ointment [...] reviewed patient is accepted for transfer to [facility]. Patient is alert oriented stable at [...] information. . . Nuno FunezMARLENY alfaroN-RODRIGUE 02/26/23 2520 [facility] 02-26-2023 Emergency department Note Patients Daughter Ginny West [phone] notified of admission per patients request. [facility] 02-26-2023 Physician Emergency department Note Patient was [...] following Podiatry for Shai Leonard MD 02/26/23 6174 [facility] Work Phone: 02-15-2023 History of Present illness [...] right lower leg - Primary Relevant Orders GA DRESSING CHANGE GA APPLY OF UNNA BOOT Pressure ulcer of right foot, stage 3 Chronic venous insufficiency Relevant Orders GA DRESSING CHANGE GA APPLY OF UNNA BOOT Lymphedema Relevant Orders GA DRESSING CHANGE GA APPLY OF UNNA BOOT At this time, [...] continue with aquacel AG secured with tubi armature varnisher. Patient encouraged to elevate BLE often, to [...] and cast padding applied below right knee. Fleming-Neon unna boot and coban applied to right leg from ankle to knee. To left leg: Double layer tubigrip size F applied. Patient tolerated well and circ check was birsk bilaterally. documented in this encounter [facility] 02-15-2023 Instructions Muna Savage RN - 02/15/2023 1:15 PM EDT Keep unna boot on right leg clean and dry. Keep the tubigrip sock on the left leg clean and dry, may remove to wash leg but put it back on. Call with any questions or concerns. documented in this encounter [facility] 02-10-2023 History of Present illness Narrative Date [...] him back in a couple of weeks. (DOC:[id number]) Review of Systems Constitutional: Negative for chills, [...] wear top dentures. documented in this encounter [facility] 02-08-2023 History of Present illness Narrative History [...] right lower leg - Primary Relevant Orders GA DRESSING CHANGE Chronic venous insufficiency Relevant Orders GA DRESSING CHANGE Lymphedema Relevant Orders GA DRESSING CHANGE Pressure ulcer of right foot, stage 3 Foot mass, right Relevant Orders GA DRESSING CHANGE At this time, we will apply triamcinolone cream to BLE, triple helix/medihoney mixture to RLE posterior wound, covering with aquacel extra and ABD, and then wrap patient in BLE unna boots. To right foot nodule/wound, we will apply aquacel AG, ABD, kerlix, and secure with tubi armature varnisher. Patient encouraged to elevate BLE often, to [...] Aquacel AG , ABD, Kerlix and tubi armature varnisher size F. documented in this encounter [facility] 02-08-2023 Instructions Jenise Canales RN - 02/08/2023 12:45 PM EDT Follow up in one week, keep your unna boots clean and dry, continue to follow up with all your scheduled appointments. Call with any questions or concerns. documented in this encounter [facility] 01-26-2023 History of Present illness Narrative HPI [...] Patient states recent history of admission to [facility] for falls. Patient had CT scan [...] did receive hepatitis C treatment on 08/23. [facility] and began to take. No current side effects at this time except for fatigue. Patient denies any nausea, vomiting, abdominal pain. No hematemesis or blood loss. No fevers or chills. Patient continues to get treated for right lower extremity wound and is seeing a motorized squad commanding officer in [place] Dr. Pelayo with improvement over time reported. [...] Prior appendectomy. 5. Tavera catheter in place. EDMdesigner Workstation ID: [id number] Narrative EXAMINATION: CT CHEST ABDOMEN PELVIS WITHOUT CONTRAST HISTORY: ORDERING SYSTEM PROVIDED HISTORY: Fall; Abdominal Pain; Sepsis of unknown origin, TECHNOLOGIST PROVIDED HISTORY: Illness/Other Reason for exam: Fall, abdominal pain, sepsis of unknown origin Encounter Type: Subsequent/Follow-up Additional signs and symptoms: ORDERING SYSTEM PROVIDED DIAGNOSIS CODES: I63.9 Cerebrovascular accident (CVA), unspecified mechanism ([facility]) N17.9 Acute renal failure, unspecified acute renal failure type ([facility]) A41.9 Sepsis, due to unspecified organism, unspecified whether acute organ dysfunction present ([facility]) L03.119 Cellulitis of lower extremity, unspecified laterality [...] 10.7/ platelets 108, 117, 106 -patient seeing resident associate Dr Dahl -Positive testing for positive platelet antibodies IIB/IIIA, possible ITP -Possible thalassemia, electrophoresis is pending Obesity -Patient with ongoing efforts to lose weight -BMI 30.4, 31.2, 31.6, 31.4, 29.9 Right lower extremity wound/feet& toe deformities -Patient sees podiatry Dr. Pelayo in [facility] -Placed c/s for podiatry pending and [...] to be performed today to rule out POLICY WRITER event; on follow-up, patient still has not [...] Dr. Nathan Hayden documented in this encounter [facility] 01-25-2023 History of Present illness Narrative History [...] right lower leg - Primary Relevant Orders GA APPLY OF UNNA BOOT GA DRESSING CHANGE Chronic venous insufficiency Relevant Orders GA APPLY OF UNNA BOOT GA DRESSING CHANGE Lymphedema Relevant Orders GA APPLY OF UNNA BOOT GA DRESSING CHANGE Foot mass, right Relevant Orders AMB REFERRAL TO PODIATRY GA APPLY OF UNNA BOOT GA DRESSING CHANGE At this time, we will apply triamcinolone cream to BLE, zinc barrier cream to LLE posterior tiffany wound, applying triple helix and medihoney to wound bed, covering with folded 4x4 and ABD--secured with RLE unna boot. To right arch, we will apply aquacel AG and ABD, securing with tubi armature varnisher. Referral will be made to DR. Bryan [...] Aquacel AG , ABD, Kerlix and tubi armature varnisher. Referral to Dr Bryan documented in this encounter [facility] 01-25-2023 Instructions Jenise Canales RN - 01/25/2023 2:15 PM EDT hot dip tinning supervisor your antibiotic today, keep your unna boots clean and dry, follow up with DR Bryan when scheduled for foot wound. documented in this encounter [facility] 01-18-2023 History of Present illness Narrative History [...] right lower leg - Primary Relevant Orders GA DRESSING CHANGE GA APPLY OF UNNA BOOT Chronic venous insufficiency Relevant Orders GA DRESSING CHANGE GA APPLY OF UNNA BOOT Lymphedema At this [...] Patient tolerated well. documented in this encounter [facility] 01-18-2023 Instructions Jenise Canales RN - 01/18/2023 2:45 PM EDT Keep your unna boots clean and dry. Call the wound clinic with questions or concerns. Keep your lymphedema appointment. documented in this encounter [facility] 01-18-2023 Procedure note Associated Ord er(s): WOUND [...] with the proposed plan, giving informed consent. [place] Protocol required: Yes. [place] Protocol is required. Preprocedure verification is complete [...] treatment: Procedure was tolerated well Complications: None [facility] 01-18-2023 Procedure note Associated Ord er(s): WOUND [...] with the proposed plan, giving informed consent. [place] Protocol required: Yes. [place] Protocol is required. Preprocedure verification is complete [...] well Complications: None documented in this encounter [facility] 12-28-2022 History of Present illness Narrative History [...] right lower leg - Primary Relevant Orders GA APPLY OF UNNA BOOT GA DRESSING CHANGE CULTURE WOUND Chronic venous insufficiency Relevant Orders GA APPLY OF UNNA BOOT GA DRESSING CHANGE CULTURE WOUND Lymphedema Relevant Orders GA APPLY OF UNNA BOOT GA DRESSING CHANGE CULTURE WOUND Fungal dermatitis At [...] Cast padding and xeroform under the knees. Fleming-Neon unna boots and coban from base of toes to below the knees. Capillary refill brisk. Cetacaine spray to right posterior leg wound prior to selective debridement by jN Ayala CNP with #3 curette . See debridement flow sheet. Puraply AM 2x4 applied to right leg wound,steri stripped in place, covered with Adaptic touch steri stripped in place. Puraply AM lot [id number] Exp 03/12/2025 documented in this encounter [facility] 12-28-2022 Instructions Jenise Canales RN - 12/28/2022 2:15 PM EDT Keep your unna boots clean and dry., return to the wound clinic in one week. documented in this encounter [facility] 12-28-2022 Procedure note Associated Ord er(s): CELLULAR [...] Tolerated well, no immediate complications Complications: None [facility] 12-28-2022 Procedure note Associated Ord er(s): CELLULAR [...] complications Complications: None documented in this encounter [facility] 12-21-2022 History of Present illness Narrative History [...] right lower leg - Primary Relevant Orders GA DRESSING CHANGE GA APPLY OF UNNA BOOT Chronic venous insufficiency Relevant Orders GA DRESSING CHANGE GA APPLY OF UNNA BOOT Lymphedema Relevant Orders GA DRESSING CHANGE GA APPLY OF UNNA BOOT At this time, [...] Cast padding and xeroform under the knees. Fleming-Neon unna boots and coban from base of toes to below the knees. Puraply AM lot [id number] Exp 02/27/2025 documented in this encounter [facility] 12-21-2022 Instructions Jenise Canales RN - 12/21/2022 1:15 PM EDT Keep your unna boots clean and dry, elevate your legs as tolerated throughout the day, call with concerns. documented in this encounter [facility] 12-21-2022 Procedure note Associated Ord er(s): CELLULAR [...] Tolerated well, no immediate complications Complications: None [facility] 12-21-2022 Procedure note Associated Ord er(s): CELLULAR [...] complications Complications: None documented in this encounter [facility] 12-14-2022 History of Present illness Narrative History [...] right lower leg - Primary Relevant Orders GA DRESSING CHANGE GA APPLY OF UNNA BOOT Chronic venous insufficiency Relevant Orders GA DRESSING CHANGE GA APPLY OF UNNA BOOT Lymphedema Relevant Orders GA DRESSING CHANGE GA APPLY OF UNNA BOOT We will apply [...] Patient tolerated well. documented in this encounter [facility] 12-14-2022 Instructions Jenise Canales RN - 12/14/2022 9:00 AM EDT Keep your unna boots clean and dry, elevate the legs as tolerated throughout the day, call with questions or concerns. documented in this encounter [facility] 12-08-2022 History of Present illness Narrative Review [...] Patient states recent history of admission to [facility] for falls. Patient had CT scan [...] did receive hepatitis C treatment on 08/23. [facility] and began to take. No current side effects at this time except for fatigue. Patient denies any nausea, vomiting, abdominal pain. No hematemesis or blood loss. No fevers or chills. Patient continues to get treated for right lower extremity wound and is seeing a motorized squad commanding officer in [place] Dr. Pelayo with improvement over time reported. [...] therapy this weekend as he missed the [employer] truck and so missed one dose of [...] Prior appendectomy. 5. Tavera catheter in place. EDMdesigner Workstation ID: [id number] Narrative EXAMINATION: CT CHEST [...] hemoglobin 10.2,10.6/ platelets 108, 117 -patient seeing resident associate -Positive testing for positive platelet antibodies IIB/IIIA, possible ITP -Possible thalassemia, electrophoresis is pending Obesity -Patient with ongoing efforts to lose weight -BMI 30.4, 31.2, 31.6, 31.4 Right lower extremity wound/feet& toe deformities -Patient sees podiatry Dr. Pelayo in [place] -Placed c/s for podiatry - seeing wound care and has pneumoboots in place Right hand weakness -No trauma noted, does have notable weak left is extensor, fingers and wrist area -Obtain head CT which was ordered stat however patient has deferred getting tests performed today and wishes to come back different day although I recommended it to be performed today to rule out POLICY WRITER event; on follow-up, patient still has not gotten testing done and this will be rescheduled -X-ray shows degenerative changes but this likely does not explain his findings or acuity of presentation -Depending on findings, may need referral to neurology versus orthopedics Patient to follow-up within 3-4 weeks, earlier with new issues [address] Nathan Hayden documented in this encounter [facility] 11-30-2022 History of Present illness Narrative The following treatment completed via [employer] WORKER triamcinolone 0.1% cream applied to lower legs, foam to ankles. Right leg wound applied zine to tiffany-wound, sorbact, aqucel extra and ABD. Fleming-Neon unna boots applied to lower legs. Patient voices no concerns or questions at this time. documented in this encounter [facility] 11-30-2022 Instructions Jenise Canales RN - 11/30/2022 1:15 PM EDT Follow up in one week, keep your unna boots clean and dry. Call the wound clinic with questions or concerns. documented in this encounter [facility] 11-25-2022 History of Present illness Narrative Review [...] management. He has also been admitted to [facility] for falls and CT scan in [...] Portions of this chart were created using [employer] electronic dictation. Please excuse any typographical or grammatical errors contained herein as a result. documented in this encounter [facility] 11-25-2022 Instructions Bridget Dahl MD - 11/25/2022 3:00 PM EDT Return Visit in 2 weeks with Labs. documented in this encounter [facility] 11-23-2022 History of Present illness Narrative History [...] right lower leg - Primary Relevant Orders GA DRESSING CHANGE Chronic venous insufficiency Relevant Orders GA DRESSING CHANGE Lymphedema Relevant Orders GA DRESSING CHANGE At this time, we will [...] to tiffany-wound, sorbact, aqucel extra and ABD. Fleming-Neon unna boots applied to lower legs. Patient voices no concerns or questions at this time. documented in this encounter [facility] 11-23-2022 Instructions Deborah Bell RN - 11/23/2022 1:45 PM EDT Wound center to coordinate Lymphedema. documented in this encounter [facility] 11-16-2022 History of Present illness Narrative History [...] right lower leg - Primary Relevant Orders GA DRESSING CHANGE GA APPLY OF UNNA BOOT Chronic venous insufficiency Relevant Orders GA DRESSING CHANGE GA APPLY OF UNNA BOOT Lymphedema At this [...] Patient tolerated well. documented in this encounter [facility] 11-16-2022 Instructions Jenise Canales RN - 11/16/2022 8:00 AM EDT Follow up in one week, keep your unna boots clean and dry. Call with questions or concerns. documented in this encounter [facility] 11-03-2022 History of Present illness Narrative Review [...] Patient states recent history of admission to [facility] for falls. Patient had CT scan [...] lower extremity wound and is seeing a motorized squad commanding officer [place] with improvement over time reported. Patient [...] Prior appendectomy. 5. Tavera catheter in place. [employer] Workstation ID: [id number] Narrative EXAMINATION: CT CHEST ABDOMEN PELVIS WITHOUT CONTRAST HISTORY: ORDERING SYSTEM PROVIDED HISTORY: Fall; Abdominal Pain; Sepsis of unknown origin, TECHNOLOGIST PROVIDED HISTORY: Illness/Other Reason for exam: Fall, abdominal pain, sepsis of unknown origin Encounter Type: Subsequent/Follow-up Additional signs and symptoms: ORDERING SYSTEM PROVIDED DIAGNOSIS CODES: I63.9 Cerebrovascular accident (CVA), unspecified mechanism ([facility]) N17.9 Acute renal failure, unspecified acute renal failure type ([facility]) A41.9 Sepsis, due to unspecified organism, unspecified whether acute organ dysfunction present ([facility]) L03.119 Cellulitis of lower extremity, unspecified laterality [...] deformities -Patient sees podiatry Dr. Pelayo in [facility] -Placed c/s for podiatry -ongoing edema and would recommend to be head rigger although patient has difficulty getting them on and off and is having difficulty managing his right lower extremity wound. -Recommend wound care center evaluation as well as home nursing service to be placeds 3 times a week to assist with dressing changes as well as tubi head rigger Patient to follow-up within 2-3 weeks [address] Nathan Hayden documented in this encounter [facility] 11-03-2022 Miscellaneous Notes Addended by: RESHMA GOODRICH on: 11/03/2022 09:54 AM Modules accepted: Orders documented in this encounter [facility] 11-03-2022 Note Addended by: RESHMA CHANEL on: 11/03/2022 09:54 AM Modules accepted: Orders [facility] 10-21-2022 Nurse Note Patient's daughter, Jeny, just telephoned in; is 2 minutes from Hospital; instructed on where to fiber picker patient. IV discontinued with angiocath intact; [...] his eyes again. documented in this encounter [facility] 10-21-2022 Nurse Surgical operation note Patient's daughter, Jeny, just telephoned in; is 2 minutes from Hospital; instructed on where to fiber picker patient. [facility] 10-21-2022 Nurse Surgical operation note IV discontinued with angiocath intact; no redness or edema noted a site; pressure drsg applied to site; patient tolerated procedure well and is getting dressed for discharge home. [facility] 10-21-2022 Nurse Surgical operation note Dr. Suarez here speaking with patient, provides post procedure diagnosis, treatment provided and treatment recommended. [facility] 10-21-2022 Nurse Surgical operation note Patient assisted to sit on side of cart, denies dizziness or lightheaded, call light with patient, side rail up x 1. Educated patient on post anesthesia safety precautions throughout next 24 hours; patient verbalizes understanding. [facility] 10-21-2022 Nurse Surgical operation note Discharge instructions, and AVS, being provided to patient, by Mingo Britton LPN, after this RN reviewed documents. [facility] 10-21-2022 Nurse Surgical operation note Patient's BP has improved, is alert, HOB elevated; patient taking nourishment of diet pepsi and peanut butter crackers; patient denies difficulty swallowing, pain or nausea. [facility] 10-21-2022 Nurse Surgical operation note Patient to recovery bay 4; patient opens eyes to name, denies pain or nausea, then quickly closes his eyes again. [facility] 10-21-2022 Note Formatting of this n ote might be different from the original. See anesthesia record for vitals and medications given. [facility] 10-21-2022 Miscellaneous Notes See anesthesia record for vitals and medications given. documented in this encounter [facility] 09-29-2022 History of Present illness Narrative Review [...] Patient states recent history of admission to [facility] for falls. Patient had CT scan [...] lower extremity wound and is seeing a motorized squad commanding officer [place] with improvement over time reported. Patient [...] Prior appendectomy. 5. Tavera catheter in place. EDMdesigner Workstation ID: [id number] Narrative EXAMINATION: CT CHEST [...] wound -Patient sees podiatry Dr. Pelayo in [facility] -Patient was transferred here to podiatry at our facility and consult was placed -Patient has ongoing wound, does his own dressing changes daily, patient denies current infection and defers evaluation today Patient to follow-up within 3-4 weeks [address] Nathan Hayden documented in this encounter [facility] 09-29-2022 Miscellaneous Notes Addended by: LEEANN DON on: 09/29/2022 11:38 AM Modules accepted: Orders documented in this encounter [facility] 09-29-2022 Note Addended by: LEEANN DON on: 09/29/2022 11:38 AM Modules accepted: Orders [facility] 08-26-2022 History of Present illness Narrative Nurse [...] recommendations pending results documented in this encounter [facility] 08-26-2022 Instructions Zakiya Horan LPN - 08/26/2022 [...] 3:00pm the day before your procedure, call [phone] documented in this encounter [facility] 08-25-2022 History of Present illness Narrative Review [...] Patient states recent history of admission to [facility] for falls. Patient had CT scan [...] did receive hepatitis C treatment on 08/23. [facility] and began to take. No current side effects at this time except for fatigue. Patient denies any nausea, vomiting, abdominal pain. No hematemesis or blood loss. No fevers or chills. Patient continues to get treated for right lower extremity wound and is seeing a motorized squad commanding officer [place] with improvement over time [...] Prior appendectomy. 5. Tavera catheter in place. Pokelabo/[employer]s Workstation ID: [id number] Narrative EXAMINATION: CT CHEST ABDOMEN PELVIS WITHOUT CONTRAST HISTORY: ORDERING SYSTEM PROVIDED HISTORY: Fall; Abdominal Pain; Sepsis of unknown origin, TECHNOLOGIST PROVIDED HISTORY: Illness/Other Reason for exam: Fall, abdominal pain, sepsis of unknown origin Encounter Type: Subsequent/Follow-up Additional signs and symptoms: ORDERING SYSTEM PROVIDED DIAGNOSIS CODES: I63.9 Cerebrovascular accident (CVA), unspecified mechanism ([facility]) N17.9 Acute renal failure, unspecified acute renal failure type ([facility]) A41.9 Sepsis, due to unspecified organism, unspecified whether acute organ dysfunction present ([facility]) L03.119 Cellulitis of lower extremity, unspecified laterality [...] wound -Patient sees podiatry Dr. Pelayo in [place] -No clear evidence of new infection -Patient has follow-up visit 08/26 -Ongoing wound care and elevation Patient to follow-up within 3-4 weeks [address] Nathan Hayden documented in this encounter [facility] 07-07-2022 History of Present illness Narrative Review [...] Patient states recent history of admission to [facility] for falls. Patient had CT scan [...] Prior appendectomy. 5. Tavera catheter in place. EDMdesigner Workstation ID: [id number] Narrative EXAMINATION: CT CHEST [...] Dr. Nathan Hayden documented in this encounter [facility] 06-07-2022 History of Present illness Narrative HPI Carmen Gilman male 1965 presents to the [facility] with Chief Complaint Patient presents with Referral Patient presents requesting a referral for a specialist to treat Hepatitis. He had an appointment with his PCP today and has not been given a follow up for hepatitis. States he is not receiving any treatment now. He denies SOB, abd distention. Desires to transfer care to [facility] providers. History No Known Allergies Current Outpatient [...] KIEL Dawson 06/07/2022 documented in this encounter [facility] 05-12-2022 Emergency department Note Pt left AMA. Pt offered wheel chair but denied it. Pt walked out of ER with unsteady gait and in stable condition. [facility] 05-12-2022 Emergency department Note Pt left AMA. Pt offered wheel chair but denied it. Pt walked out of ER with unsteady gait and in stable condition. Pt left AMA and signed paper work for leaving AMA. documented in this encounter [facility] 05-12-2022 Emergency department Note Pt left AMA and signed paper work for leaving AMA. [facility] 04-21-2022 Hospital course Narrative Images from the original note were not included. [facility] DISCHARGE SUMMARY Carmen Gilman Admitted: 04/20/2022 Discharge [...] 04/21/22, 1:31 PM documented in this encounter [facility] 04-21-2022 Miscellaneous Notes AMA form signed. [...] ST segments normal T Inversion: V2 normal GA interval normal QRS interval normal QT interval Clinical impression: non-specific ECG documented in this encounter [facility] 04-21-2022 Note Formatting of this n [...] notified antibiotic prescription is at his pharmacy. [facility] 04-21-2022 Consult note Associated Order (s): IP CONSULT TO ENTEROSTOMAL THERAPY Wound care has been consulted for a wound to his leg. Podiatry has also been consulted for this same wound. We will defer to them for wound management. Lpapst RN woundcare [facility] 04-21-2022 Consult note Associated Order (s): IP CONSULT TO ENTEROSTOMAL THERAPY Wound care has been consulted for a wound to his leg. Podiatry has also been consulted for this same wound. We will defer to them for wound management. Lpapst RN woundcare documented in this encounter [facility] 04-21-2022 Note Formatting of this n [...] Absence of pressure ulcer Outcome: Partially Met [facility] 04-21-2022 Note Formatting of this n ote might be different from the original. Patient alert and oriented x3, Patient BP 90/50 Dr. Boudreaux aware. [facility] 04-21-2022 Note Formatting of this n [...] obtain it after I get pt's permission. [facility] 04-20-2022 History and physical note [facility] HISTORY AND PHYSICAL Patient Name: Carmen Gilman : 1965 MR #: [id number] Admit Date: 04/20/2022 Physicians: Ani Worley CNP [...] Arthritis Asthma COPD (chronic obstructive pulmonary disease) ([facility]) Diabetes (HCC) Hypertension Opioid dependence ([facility]) Past Surgical History Past Surgical History: Procedure Laterality Date APPENDECTOMY ARTHROPLASTY KNEE TOTAL ROBOTIC ASSISTED Right 01/08/2020 Procedure: Right Total Knee Replacement Robotic; Surgeon: Sofía Dukes MD; Location: [facility] [place]; Service: Ortho-Robotics FOOT SURGERY Left MANDIBLE FRACTURE [...] 04/20/22 9:28 PM Radiology 04/20/22 9:28 PM [facility] 04-20-2022 History and physical note [facility] HISTORY AND PHYSICAL Patient Name: Carmen Gilman : 1965 MR #: [id number] Admit Date: 04/20/2022 Physicians: Ani Worley CNP [...] Arthritis Asthma COPD (chronic obstructive pulmonary disease) ([facility]) Diabetes ([facility]) Hypertension Opioid dependence ([facility]) Past Surgical History Past Surgical History: Procedure [...] 04/20/22 9:28 PM documented in this encounter [facility] 04-20-2022 History of Present illness Narrative [...] and make adjustments as needed. Please use isocket to call pharmacy or secure chat the [...] 04/20/22 122.6 kg (270 lb 4.5 oz) [place] body weight: 77.6 kg (171 lb 1.2 oz) Adjusted ideal body weight: 95.6 kg (210 lb 12.2 oz) Patient Tmax (last 24 hours): 98 F Micro: pending Pharmacist: Kanika Quintero RPh,PharmD Contact: [phone] documented in this encounter [facility] 04-20-2022 Note Formatting of this n [...] any errors, but occasionally words are mis-transcribed.) [facility] Work Phone: 04-20-2022 Physician Emergency department Note Images from the original note were not included. [facility] ED WHIT Note: NAME: Carmen Gilman 56 y.o. CSN: [id number] PCP: Ani Worley CNP History: Chief Complaint: [...] All other components within normal limits Narrative: [facility] Services has implemented the eGFR [...] Procedure Abnormality Status --------- ------ CBC Auto Differential[[id number]] Abnormal Final result Manual Differential[[id number]] Abnormal Final result CBC and Diff Morphology[[id number]] Final result Please view results for these tests on the individual orders. TROPONIN OBTAIN VENOUS BLOOD GASES AND PERFORM TROPONIN DRUGS OF ABUSE SCREEN, URINE MORPHOLOGY XR Pelvis 1 View (Standard) Preliminary Result No acute osseous abnormality of the pelvis is identified. [employer] Workstation ID: [id number] Knee Right 2 Views (Standard) Preliminary Result 1. Bilateral subcutaneous edema. 2. No acute fracture or dislocation identified in either knee. 3. Total right knee arthroplasty in place. [employer] Workstation ID: [id number] XR Knee Left 2 Views (Standard) Preliminary Result 1. Bilateral subcutaneous edema. 2. No acute fracture or dislocation identified in either knee. 3. Total right knee arthroplasty in place. [employer] Workstation ID: [id number] XR Chest 1 View Preliminary Result No acute cardiopulmonary process. [employer] Workstation ID: [id number] MDM: ED Course as [...] Uyen Casiano CNP ED Advanced Practice Provider [facility] Emergency Department (Please note that portions of this note have been completed with a voice recognition software. Efforts were made to correct any errors, but occasionally words are mis-transcribed.) Uyen Casiano CNP 04/20/22 1729 [facility] Work Phone: 04-20-2022 Emergency department Note Images from the original note were not included. [facility] ED WHIT Note: NAME: Carmen Gilman 56 y.o. CSN: [id number] PCP: Ani Worley CNP History: Chief Complaint: [...] Arthritis Asthma COPD (chronic obstructive pulmonary disease) ([facility]) Diabetes (HCC) Hypertension Opioid dependence ([facility]) PMSx: Past Surgical History: Procedure Laterality Date APPENDECTOMY ARTHROPLASTY KNEE TOTAL ROBOTIC ASSISTED Right 01/08/2020 Procedure: Right Total Knee Replacement Robotic; Surgeon: Sfoía Dukes MD; Location: Main [facility]; Service: Ortho-Robotics [...] All other components within normal limits Narrative: [facility] has implemented the eGFR [...] Procedure Abnormality Status --------- ------ CBC Auto Differential[[id number]] Abnormal Final result Manual Differential[[id number]] Abnormal Final result CBC and Diff Morphology[[id number]] Final result Please view results for these tests on the individual orders. TROPONIN OBTAIN VENOUS BLOOD GASES AND PERFORM TROPONIN DRUGS OF ABUSE SCREEN, URINE MORPHOLOGY XR Pelvis 1 View (Standard) Preliminary Result No acute osseous abnormality of the pelvis is identified. [employer] Workstation ID: [id number] XR Knee Right 2 Views (Standard) Preliminary Result 1. Bilateral subcutaneous edema. 2. No acute fracture or dislocation identified in either knee. 3. Total right knee arthroplasty in place. [employer] Workstation ID: [id number] XR Knee Left 2 [...] Uyen Casiano CNP ED Advanced Practice Provider [facility] Emergency Department (Please note that portions of [...] are scabbed over. documented in this encounter [facility] 04-20-2022 Note Associated Order(s): EKG 12-lead EKG 12-lead Date/Time: 04/20/2022 3:15 PM Performed by: Carolina Solis MD Authorized by: Carolina Solis MD Interpreted by ED attending physician Comparison: not compared with previous ECG Rhythm: sinus rhythm BPM: 69 Conduction: conduction normal ST Segments: ST segments normal T Inversion: V2 normal GA interval normal QRS interval normal QT interval Clinical impression: non-specific ECG [facility] 04-20-2022 Emergency department Note RODRIGUE Qiu bedside. [facility] 04-20-2022 Emergency department Note Placed call to Dr. Solis to update about pt hypotension. [facility] 04-20-2022 Emergency department Triage note Pt arrived to ed with c/c of fall from standing last night. Pt has swollen legs that he states is chronic. Pt has wounds to bilateral legs that are scabbed over. [facility] 03-07-2022 Physician Emergency department Note Emergency Department Report [facility] EMERGENCY DEPARTMENT Service Date:.03/07/22 PCP: Ani Worley [...] . . Nuno Cantor MD 03/07/22 0338 [facility] 03-07-2022 Emergency department Note Emergency Department Report [facility] EMERGENCY DEPARTMENT Service Date:.03/07/22 PCP: Ani Worley [...] MD 03/07/22 0338 documented in this encounter [facility] 11-15-2021 History of Present illness Narrative 11/15/21 [...] Transfer Skill: Sit To Stand, Rehab Eval [place] (Sit-Stand Transfers) contact guard Physical Assist/Nonphysical Assist: Sit/Stand 1 person assist Weight-Bearing Restrictions: Sit/Stand full weight-bearing Assistive Device For Transfer: Sit/Stand 2 wheeled walker Gait Skills, PT Eval Level of [place]: Gait contact guard Physical Assist/Nonphysical Assist: Gait [...] Transfer Skill: Sit To Stand, Rehab Eval [place] (Sit-Stand Transfers) contact guard Physical Assist/Nonphysical Assist: [...] Date: 11/12/2021 Date of Evaluation: :28 PM [facility] LOS: 2 days Chief complaint: Hypotension SUBJECTIVE: [...] Supine to Sit, Rehab Eval Level of [place]: Supine/Sit contact guard Physical Assist/Nonphysical Assist: Supine/Sit 1 person assist Transfer Skill: Sit To Stand, Rehab Eval [place] (Sit-Stand Transfers) contact guard Physical Assist/Nonphysical Assist: Sit/Stand 1 person assist Weight-Bearing Restrictions: Sit/Stand full weight-bearing Assistive Device For Transfer: Sit/Stand 2 wheeled walker Gait Skills, PT Eval Level of [place]: Gait contact guard Physical Assist/Nonphysical Assist: Gait [...] x2 and Bala x1 maintained from this FIRMWARE TEST ENGINEER and WINN assisted pt with pericare. Pt [...] Transfer Skill: Sit To Stand, Rehab Eval [place] (Sit-Stand Transfers) minimum assist (75% patient effort) Physical Assist/Nonphysical Assist: Sit/Stand 2 person assist Weight-Bearing Restrictions: Sit/Stand full weight-bearing Assistive Device For Transfer: Sit/Stand 2 wheeled walker Gait Skills, PT Eval Level of [place]: Gait minimum assist (75% patients effort) Physical [...] is a 56 y.o. male admitted to [facility] for: 1. MARLENE (acute kidney injury) 2. [...] (278 lb) 03/23/18 132.9 kg (293 lb) [place] body weight: 77.6 kg (171 lb 1.2 [...] Score: 0 Nutrition: 2-->probably inadequate EER: Calories: 1885-1798 kcal (25-30 kcal/kg IBW) Protein: 62-78 gm [...] AMRIK Daniels Registered Dietitian, Licensed Dietitian 11/13/21 IT SECURITY MANAGER met with patient to discuss discharge plans. IT SECURITY MANAGER explained that therapy was recommending the patient go to a facility for rehab. Patient states that he does not want to go to a facility. IT SECURITY MANAGER explained that it is not safe for him to return home. He states that he feels like he does well with therapy and is not going to go to a facility. He states "I just need a walker". IT SECURITY MANAGER provided patient with a walker from the DME supply. Paperwork completed. Patient agreeable to home health care. He is agreeable for home health and would like to use [facility]. SW team to make referral to [facility]. IT SECURITY MANAGER attempted to talk with patient about rehab one more time but patient stated "I am not going to go anywhere". IT SECURITY MANAGER to follow. IT SECURITY MANAGER Places HH referral to [facility] 11/13/21 [...] Supine to Sit, Rehab Eval Level of [place]: Supine/Sit stand-by assist Physical Assist/Nonphysical Assist: Supine/Sit 1 person assist Transfer Skill: Sit To Stand, Rehab Eval [place] (Sit-Stand Transfers) moderate assist (50% patient effort) Physical Assist/Nonphysical Assist: Sit/Stand 2 person assist Weight-Bearing Restrictions: Sit/Stand full weight-bearing Assistive Device For Transfer: Sit/Stand 2 wheeled walker Gait Skills, PT Eval Level of [place]: Gait contact guard Physical Assist/Nonphysical Assist: Gait [...] 4. Pt will be independent with HEP. IT SECURITY MANAGER attempted to meet with patient to discuss rehab placement. Per nursing patient is very lethargic. IT SECURITY MANAGER to re attempt later this date if [...] Muscle Testing (MMT) Dominant Hand right Hand Mental Health Specialist, Right moderate Hand Mental Health Specialist, Left moderate Manual Muscle Testing Results other (see comments) Additional Documentation (shoulder flexion 3-/5) Bed Mobility Skill: Supine to Sit, Rehab Eval Level of [place]: Supine/Sit stand-by assist Physical Assist/Nonphysical Assist: Supine/Sit 1 person assist Transfer Skill: Sit to Stand, Rehab Eval Level of [place]: Sit/Stand moderate assist (50% patients effort) Physical Assist/Nonphysical Assist: Sit/Stand 2 person assist Weight-Bearing Restrictions: Sit/Stand full weight-bearing Assistive Device for Transfer: Sit/Stand wheeled walker Lower Body Dressing Level of [place] dependent (less than 25% patients effort) Physical Assist/Nonphysical Assist 1 person + 1 person to manage equipment Toileting Level of [place] maximum assist (25% patients effort) Physical Assist/Nonphysical [...] during transfers Therapist Information License # [id number] 1. Pt will complete LB dressing mod assist 2. Pt will complete sponge bathing mod assist 3. Pt will complete toileting to BSC min assist 4. Pt will complete hygiene/grooming sitting EOB set up 5. Pt will complete UB dressing min assist 6. Pt will participate B UE ROM and distal strengthening techniques to improve safety with transfers IT SECURITY MANAGER met with patient to discuss discharge plans. Patient states that he currently lives in a single story apartment alone. He states that he does not have advance directives. No listed emergency contacts. He asked IT SECURITY MANAGER to add his sister, Aliyah Gilman. Patient states that he has a history of anxiety and takes medication for it. Patient states that he is not independent right now. He states that he has not been able to get up to attempt to walk since coming to the hospital, but he was walking very slowly yesterday. Patient expresses extreme weakness and asked this IT SECURITY MANAGER to move his milk closer to him on his tray. Patient states that he is open to rehab, but would like to try to walk before making any decisions. IT SECURITY MANAGER to follow for therapy recommendations. Discharge Plan: IT SECURITY MANAGER following for therapy recommendations. 11/13/21 0906 Information Source Information Source patient Information Source Name Jennifer Ceron Information Source Number [phone] Contact Information Bacteriologist Industrial/SW Added to Care Team Yes This Supplier Quality Manager is Primary Bacteriologist Industrial/SW Yes Social Work Contact Name Jennifer Ceron Rehabilitation Aide/Scheduler's Living Environment Lives With alone Living Arrangements [...] Source admission list;physician documented in this encounter [facility] 11-15-2021 Hospital course Narrative Images from the [...] diet as tolerated. Discharge Follow-up: Ani Worley APRN-RETURNED GOODS SORTER [address] [facility] [place] [address] Follow up in 1 week(s) Nathan Branch MD [address] [phone] Follow up in 1 week(s) Discharge Disposition: Patient will be discharged in stable condition. Discharge Time: Including assessment, planning, and medication reconciliation was greater than 35 min. Raymond Osman CNP completing Discharge Summary for attending physician. Please note Portions of this note utilized Polar[employer] dictation software, please excuse any typographical or [...] during this hospitalization documented in this encounter [facility] 11-15-2021 Note Formatting of this n ote [...] unit via wheelchair, with all belongings. T [facility] 11-15-2021 Miscellaneous Notes Problem: Patient Care Overview [...] Conf Outcome: Ongoing documented in this encounter [facility] 11-14-2021 Note Formatting of this n ote might be different from the original. Pt resting with eyes closed, no change in assessment, call light in reach. [facility] 11-14-2021 Note Formatting of this n ote might be different from the original. Pt up in recliner, lunch ordered . No change in previous assessment, call light in each. [facility] 11-14-2021 Note Formatting of this n ote [...] care will be discharge to home. T [facility] 11-14-2021 Note Formatting of this n ote might be different from the original. 0000- No changes from previous 1999 shift assessment unless charted otherwise. 0500- No changes from previous 0000 shift assessment unless charted otherwise. [facility] 11-13-2021 Note Formatting of this n ote might be different from the original. No changes in assessment since previous unless otherwise charted Patient remain up in chair, no complaints of pain, call light within reach Daughter updated via phone Waiting on echo and US results [facility] 11-13-2021 Note Formatting of this n ote might be different from the original. No changes in assessment since 0800 unless otherwise charted [facility] 11-13-2021 History and physical note History and Physical Examination 11/13/21 11:59 AM Chief Complaint: Dizziness History of Present Illness: Patient is a 56 y.o. male presents to [facility] for evaluation of dizziness. Patient with a [...] Please note Portions of this note utilized Algoluxation software, please excuse any typographical or grammatical errors [facility] Medicine Associated attestation - Son Rodriguez MD [...] Please note: Portions of this note utilized Algoluxation software, please excuse any typographical or grammatical errors. Which inadvertently, might change the meaning and understanding. [facility] 11-13-2021 History and physical note History and Physical Examination 11/13/21 11:59 AM Chief Complaint: Dizziness History of Present Illness: Patient is a 56 y.o. male presents to [facility] for evaluation of dizziness. Patient with a [...] Please note Portions of this note utilized PolarTech dictation software, please excuse any typographical or grammatical errors [facility] Associated attestation - Son Rodriguez [...] Please note: Portions of this note utilized [employer] dictation software, please excuse any typographical or grammatical errors. Which inadvertently, might change the meaning and understanding. documented in this encounter [facility] 11-13-2021 Note Formatting of this n ote might be different from the original. notified Johnathan OLVERA that patient would like to speak with him Patient is unable to move legs appropriately, struggled feeding himself breakfast (Johnathan OLVERA notified) Call light within reach [facility] 11-13-2021 Note Formatting of this n ote might be different from the original. attempted to call daughter martin Gross voicemail box set up [facility] 11-13-2021 Nurse Surgical operation note 0000: patient [...] lisinopril pills inside). 0400: prior assessment unchanged. [facility] 11-13-2021 Nurse Note 0000: patient admitted to [...] prior assessment unchanged. documented in this encounter [facility] 11-13-2021 Note Formatting of this n ote might be different from the original. Problem: Patient Care Overview Goal: Plan of Care Review Outcome: Ongoing Goal: Individualization & Mutuality Outcome: Ongoing Goal: Discharge Needs Assessment Outcome: Ongoing Goal: Interdisciplinary Rounds/Family Conf Outcome: Ongoing [facility] 11-12-2021 Emergency department Note Room 3785 assigned [facility] 11-12-2021 Emergency department Note Room [address] Cantor speaking with Dr. Rodriguez at this time Emergency Department Report [facility] EMERGENCY DEPARTMENT Service Date:.11/12/21 PCP: Ani Worley [...] medication recently. He was last admitted to [facility] in September. Patient denies any fever [...] Use Authorization (EUA) for the qualitative detection [id number] nucleic acid. PROTIME-INR Result Value Ref Range [...] YELLOW YELLOW APPEARANCE, URINE CLEAR CLEAR Specific [place], Urine 1.020 1.010 - 1.025 PH URINE [...] information. . . Nuno Cantor MD 11/12/21 7920 Bed: E006 Expected date: Expected time: Means of arrival: Comments: EMS documented in this encounter [facility] 03-24-[address] Cantor speaking with Dr. Rodriguez at this time [facility] 11-12-2021 Physician Emergency department Note Emergency Department Report [facility] EMERGENCY DEPARTMENT Service Date:.11/12/21 PCP: Ani Worley [...] medication recently. He was last admitted to [facility] in September. Patient denies any fever [...] -1 This test was performed using isothermal HREMAN and has been approved as Emergency Use Authorization (EUA) for the qualitative detection [id number] nucleic acid. PROTIME-INR Result Value Ref Range [...] YELLOW YELLOW APPEARANCE, URINE CLEAR CLEAR Specific [place], Urine 1.020 1.010 - 1.025 PH URINE [...] information. . . Nuno Cantor MD 11/12/21 7073 [facility] Work Phone: 11-12-2021 Emergency department Note Bed: E006 Expected date: Expected time: Means of arrival: Comments: EMS [facility] 10-07-2021 Emergency department Note Patient left AMA. [...] Baker notified Patient stated,'I'm a client at [facility]" . He admitted that he is [...] contacted at this time. Emergency Department Report [facility] EMERGENCY DEPARTMENT Service Date:.10/07/21 PCP: Ani Worley [...] at the patient does not work at [employer]. Instead, it is a community center that [...] a lot due to his polysubstance abuse. [facility] paperwork was canceled as the patient does [...] PA-C 10/07/21 1354 documented in this encounter [facility] 04-14-2021 History of Present illness Narrative Patient: [...] Assessment: Physical Exam documented in this encounter [facility] 04-04-2021 Emergency department Note Emergency Department Report [facility] EMERGENCY DEPARTMENT Service Date:.04/04/21 PCP: Ani Worley [...] Social Gatherings with Friends and Family: Attends Catholic Services: Active Member of Clubs or Organizations: [...] . Nuno Cantor MD 04/04/21 0307 [facility] documented in this encounter [facility] 03-30-2021 Emergency department Note Emergency Department Report [facility] EMERGENCY DEPARTMENT Service Date:.03/30/21 PCP: Palmer Givens [...] Social Gatherings with Friends and Family: Attends Catholic Services: Active Member of Clubs or Organizations: [...] MD 03/30/21 1257 documented in this encounter [facility] 02-02-2021 Emergency department Note Images from the original note were not included. [facility] EMERGENCY DEPARTMENT PCP - Ani Worley CNP N - [id number] Please excuse grammar and misspelling secondary to Dragon dictation use Chief Complaint Patient presents with Shoulder Pain Toe Pain HPI Chief complaint shoulder and toe pain This is a 55-year-old male who states that he fell several weeks ago injuring his shoulder and his toe. He has not really take anything other than [id number] medications. Patient states that his third toes [...] pneumothorax. Patient will be discharged with recommendation [id number] Aleve and Tylenol as needed for pain [...] Social Gatherings with Friends and Family: Attends Catholic Services: Active Member of Clubs or Organizations: [...] fell from chair. documented in this encounter [facility] Evaluation note Diagnosis Pain in joint of right shoulder- Primary Contusion of right great toe without damage to nail, initial encounter [facility], initial encounter- Primary Contusion of left shoulder, initial encounter Rib contusion, left, initial encounter Contusion of left knee, initial encounter Polysubstance abuse Other, mixed, or unspecified nondependent drug abuse, unspecified [facility] Diagnosis MARLENE (acute kidney injury) Acute [...] severe protein-calorie malnutrition [facility] Diagnosis Right foot pain- Primary Pain in limb [facility] Diagnosis Closed displaced fracture of middle phalanx of lesser toe of left foot, initial encounter- Primary Dislocation of interphalangeal joint of lesser toe of left foot, initial encounter [facility] Diagnosis Acquired varus deformity of left foot- Primary Hallux rigidus, acquired, left Fracture of second toe, left, open, with malunion, subsequent encounter [facility]* Diagnosis Cellulitis of right lower extremity- Primary Cellulitis and abscess of leg, except foot Venous stasis ulcer of right calf, unspecified ulcer stage, unspecified whether varicose veins present [facility] this [facility]* Diagnosis MARLENE (acute kidney injury) (HCC) Cellulitis of lower extremity, unspecified laterality Hypotension, unspecified hypotension type Dehydration Peripheral edema Edema Fall Unspecified fall documented in this encounter [facility] note* Diagnosis Ulcer of right foot, unspecified ulcer stage (HCC)- Primary Lymphedema of both lower extremities [facility] this encounter [facility] Work Phone: evaluation note* Diagnosis Shortness of breath- Primary [facility] Diagnosis Referral of patient- Primary Referral of patient without examination or treatment Chronic viral hepatitis B without delta agent and 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 Chronic hepatitis C without hepatic coma [facility]* Diagnosis Chronic hepatitis C without hepatic coma- Primary Hepatitis B core antibody positive Other and unspecified nonspecific immunological findings Healthcare maintenance Routine general medical examination at a [facility] facility Obesity (BMI 30-39.9) Obesity, unspecified Pancytopenia Other pancytopenia Alcoholic cirrhosis, unspecified whether ascites present [facility]* Diagnosis Chronic hepatitis C without hepatic coma- Primary Hepatitis B core antibody positive Other and unspecified nonspecific immunological findings Healthcare maintenance Routine general medical examination at a [facility] Alcoholic cirrhosis, unspecified whether ascites present Pancytopenia Other pancytopenia Obesity (BMI 30-39.9) Obesity, unspecified [facility]* Diagnosis Cirrhosis of liver without ascites, unspecified hepatic cirrhosis type- Primary Chronic hepatitis C without hepatic coma [facility]* Diagnosis Chronic hepatitis C without hepatic coma- Primary Hepatitis B core antibody positive Other and unspecified nonspecific immunological findings Pancytopenia Other pancytopenia Healthcare maintenance Routine general medical examination at a [facility] Obesity (BMI 30-39.9) Obesity, unspecified Cirrhosis of liver without ascites, unspecified hepatic cirrhosis type Wound of right lower extremity, subsequent encounter [facility]* Diagnosis Cirrhosis of liver without ascites, unspecified hepatic cirrhosis type Chronic hepatitis C without hepatic coma [facility]* Diagnosis Wound of right lower extremity, subsequent encounter- Primary Chronic hepatitis C without hepatic coma Hepatitis B core antibody positive Other and unspecified nonspecific immunological findings Pancytopenia Other pancytopenia Obesity (BMI 30-39.9) Obesity, unspecified Healthcare maintenance Routine general medical examination at a [facility] Cirrhosis of liver without ascites, unspecified hepatic cirrhosis type [facility] Diagnosis Venous stasis ulcer of right lower leg with edema of right lower leg- Primary Chronic venous insufficiency Unspecified venous (peripheral) insufficiency Lymphedema Other lymphedema [facility]* Diagnosis Venous stasis ulcer of right lower leg with edema of right lower leg- Primary Chronic venous insufficiency Unspecified venous (peripheral) insufficiency Lymphedema Other lymphedema documented [facility]* Diagnosis Pancytopenia- Primary Other pancytopenia Thrombocytopenia Thrombocytopenia, unspecified Leukopenia, unspecified type Microcytic hypochromic anemia Iron deficiency anemia, unspecified Chronic hepatitis C without hepatic coma 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 Viral hepatitis B without mention of hepatic coma, chronic, with hepatitis delta Hepatosplenomegaly Other chronic nonalcoholic liver disease [facility]* Diagnosis Venous stasis ulcer of right lower leg with edema of right lower leg- Primary Chronic venous insufficiency Unspecified venous (peripheral) insufficiency documented [facility]* Diagnosis Chronic hepatitis C without hepatic coma- Primary Hepatitis B core antibody positive Other and unspecified nonspecific immunological findings Pancytopenia Other pancytopenia Cirrhosis of liver without ascites, unspecified hepatic cirrhosis type Healthcare maintenance Routine general medical examination at a [facility] Obesity (BMI 30-39.9) Obesity, unspecified [facility]* Diagnosis Hand weakness Muscle weakness (generalized) documented [facility]* Diagnosis Venous stasis ulcer of right lower leg with edema of right lower leg- Primary Chronic venous insufficiency Unspecified venous (peripheral) insufficiency Lymphedema Other lymphedema documented [facility]* Diagnosis Venous stasis ulcer of right lower leg with edema of right lower leg- Primary Chronic venous insufficiency Unspecified venous (peripheral) insufficiency Lymphedema Other lymphedema [facility] Diagnosis Venous stasis ulcer of right lower leg with edema of right lower leg- Primary Chronic venous insufficiency Unspecified venous (peripheral) insufficiency Lymphedema Other lymphedema Fungal dermatitis Dermatomycosis, unspecified [facility] Diagnosis Venous stasis ulcer of right lower leg with edema of right lower leg- Primary Chronic venous insufficiency Unspecified venous (peripheral) insufficiency Lymphedema Other lymphedema [facility] Diagnosis Chronic hepatitis C without [...] extremity, subsequent encounter [facility] Diagnosis Venous stasis ulcer of right lower leg with edema of right lower leg- Primary Chronic venous insufficiency Unspecified venous (peripheral) insufficiency Lymphedema Other lymphedema Foot mass, right [facility] Diagnosis Venous stasis ulcer of right lower leg with edema of right lower leg- Primary Chronic venous insufficiency Unspecified venous (peripheral) insufficiency Lymphedema Other lymphedema Pressure ulcer of right foot, stage 3 Foot mass, right [facility] Diagnosis Venous stasis ulcer of right lower leg with edema of right lower leg- Primary Pressure ulcer of right foot, stage 3 Chronic venous insufficiency Unspecified venous (peripheral) insufficiency Lymphedema Other lymphedema [facility]* Diagnosis Mass of right foot- Primary Bursitis of right foot Subluxation of foot joint, right, initial encounter [facility]* Diagnosis Cellulitis of left lower extremity- Primary Cellulitis and abscess of leg, except foot Suspected DVT (deep vein thrombosis) Sepsis without acute organ dysfunction, due to unspecified organism Pancytopenia Other pancytopenia Cellulitis and abscess of left lower extremity [facility]* Diagnosis Cellulitis of lower extremity, unspecified laterality- Primary Failure of outpatient treatment Ulcers of both lower legs, limited to breakdown of skin [facility]* Diagnosis Cellulitis of right lower [...] foot, except toes [facility] Diagnosis Nondependent cocaine abuse (HCC)- Primary [...] extremity, unspecified laterality documented in this encounter [facility] note* Diagnosis Wound of right lower extremity, subsequent encounter- Primary Chronic hepatitis C without hepatic coma Pancytopenia Other pancytopenia MSSA (methicillin susceptible Staphylococcus aureus) infection Methicillin susceptible Staphylococcus aureus in conditions classified elsewhere and of unspecified site Alcoholic cirrhosis, unspecified whether ascites present Left leg cellulitis Cellulitis and abscess of leg, except foot [facility]* Diagnosis Left leg cellulitis- Primary Cellulitis and abscess of leg, except foot Close exposure to COVID-19 virus Chronic hepatitis C without hepatic coma Wound of right lower extremity, subsequent encounter Pancytopenia Other pancytopenia Alcoholic cirrhosis, unspecified whether ascites present Healthcare maintenance Routine general medical examination at a health care facility Obesity (BMI 30-39.9) Obesity, unspecified [facility] Diagnosis Pancytopenia- Primary Other pancytopenia Chronic [...] findings Housing instability [facility]* Diagnosis Pressure ulcer of right foot, stage 3- Primary Venous stasis ulcer of right lower leg with edema of right lower leg Lymphedema Other lymphedema Chronic venous insufficiency Unspecified venous (peripheral) insufficiency Venous stasis ulcer of left lower leg with edema of left lower leg [facility]* Diagnosis Hematoma- Primary Contusion of [...] exposed (HCC)- Primary documented in this encounter [facility] note* Diagnosis 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)- Primary documented in this encounter [facility] note* Diagnosis 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)- Primary [facility] Diagnosis Cellulitis, unspecified cellulitis site- Primary documented in this encounter [facility] note* Diagnosis Encounter for screening colonoscopy- Primary documented in this encounter [facility] note* Diagnosis Midfoot collapse of right lower extremity- Primary Pes planus of both feet Type 2 diabetes mellitus without complication, without long-term current use of insulin (HCC) Peripheral vascular disease (HCC) Unspecified peripheral vascular disease Arthritis of midfoot, unspecified laterality Chronic venous hypertension, unspecified laterality documented in this encounter [facility] note* Diagnosis Acute exacerbation of chronic obstructive [...] of right foot documented in this encounter [facility] note* Diagnosis Acute exacerbation of chronic obstructive [...] encounter (HCC)- Primary documented in this encounter [facility] note* Diagnosis Acute exacerbation of chronic obstructive [...] and subcutaneous tissue documented in this encounter [facility] note* Diagnosis Acute exacerbation of chronic obstructive [...] Muscle weakness (generalized) [facility] Diagnosis Acute exacerbation of chronic obstructive [...] of muscle (HCC) documented in this encounter [facility] note* Diagnosis Acute exacerbation of chronic obstructive [...] circulatory system disorder [facility] Diagnosis Acute exacerbation of chronic obstructive [...] muscle (HCC)- Primary documented in this encounter [facility] note* Diagnosis Acute exacerbation of chronic obstructive [...] peripheral vascular disease [facility] Diagnosis Acute exacerbation of chronic obstructive [...] Obesity (BMI 30-39.9) documented in this encounter [facility] note* Diagnosis Acute exacerbation of chronic obstructive [...] extremities [R60.0]- Primary [facility] Diagnosis Acute exacerbation of chronic obstructive [...] failure type (HCC) documented in this encounter [facility] note* Diagnosis Acute exacerbation of chronic obstructive [...] diastolic congestive heart failure (HCC) Atherosclerosis of tangirnaq artery of lower extremity with ulceration, unspecified laterality, unspecified ulceration site (HCC)- Primary documented in this encounter [facility] note* Diagnosis Acute exacerbation of chronic obstructive [...] right knee replacement documented in this encounter [facility] note* Diagnosis Acute exacerbation of chronic obstructive [...] right knee replacement documented in this encounter [facility] note* Diagnosis Acute exacerbation of chronic obstructive [...] right knee replacement documented in this encounter [facility] note* Diagnosis Acute exacerbation of chronic obstructive [...] pulmonary heart diseases documented in this encounter [facility] note* Diagnosis Acute exacerbation of chronic obstructive [...] knee, right- Primary documented in this encounter [facility] note* Diagnosis Acute exacerbation of chronic obstructive [...] knee, right- Primary documented in this encounter [facility] note* Diagnosis Acute exacerbation of chronic obstructive [...] right knee replacement documented in this encounter [facility] note* Diagnosis Acute exacerbation of chronic obstructive [...] right knee replacement documented in this encounter [facility] Discharge instructions* Attachments The following attachments cannot be sent through Care Everywhere. * Shoulder Sprain (Algerian) * Contusion (Algerian) [facility]* Attachments The following attachments cannot be sent through Care Everywhere. * Contusion ([place]gerian) [facility]* Attachments The following attachments cannot be sent through Care Everywhere. * Hepatitis C: General Info (Algerian) * Hepatitis B: General Info (Algerian) [facility]* Attachments The following attachments cannot be sent through Care Everywhere. * Foot Bones: Anatomy Sketch (Algerian) [facility]* Attachments The following attachments cannot be sent through Care Everywhere. * Cellulitis (Algerian) * Compression Stockings: General Info (Algerian) [facility]* Attachments The following attachments cannot be sent through Care Everywhere. * Lymphedema (Algerian) documented in this [facility]* Attachments The following attachments cannot be sent through Care Everywhere. * SOB (Shortness of Breath) (Algerian) documented [facility] this [facility] Attachments The following attachments cannot be sent through Care Everywhere. * Pain and Pain Control ([facility]) (Algerian) documented in this [facility] Consultation (Routine) - New Request Specialty Diagnoses / Procedures Referred By Kathy suh Referred To Contact Infectious Diseases Diagnoses Chronic hepatitis C without hepatic coma Chronic viral hepatitis B without delta agent and 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 Paul Osman, [employer] [address] [place] [address] Nathan Branch MD [address] [place] [address] Referral ID Status Reason Start Date Expiration Date V isits Requested Visits Authorized [id number] New Request 11/15/2021 12/10/2022 1 1 Electronically signed by Pual Osman [employer] at 11/15/2021 11:32 AM EDT * (Routine) - New Request Specialty Diagnoses / Procedures Referred By Contac t Referred To Contact Procedures INPATIENT ADMISSION NOTIFICATION Morisetty, Satyasagar, MD [address] [facility] [place] [address] Referral ID Status Reason Start Date Expiration Date V isits Requested Visits Authorized [id number] New Request 11/12/2021 12/07/2022 1 1 * Radiology (Emergency) - New Request Specialty Diagnoses / Procedures Referred By Contac t Referred To Contact Procedures ECG Nuno Cantor MD [address] [place] [address] Referral ID Status Reason Start Date Expiration Date V isits Requested Visits Authorized [id number] New Request 11/12/2021 12/07/2022 1 1 [facility] for referral (narrative)* Consultation (Routine) - Pending Review Specialty Diagnoses / Procedures Referred By Contac t Referred To Contact Podiatry Diagnoses Right foot pain Sofía Devine MD [address] [place] [address] Felipe Molina, [facility] [address] [place] [address] Referral ID Status Reason Start Date Expiration Date V isits Requested Visits Authorized [id number] Pending Review 03/30/2021 04/24/2022 1 1 [facility] for referral (narrative)* Consultation (Routine) - New Request Specialty Diagnoses / Procedures Referred By Contac t Referred To Contact Wound Care Diagnoses Cellulitis of right lower extremity Venous stasis ulcer of right calf, unspecified ulcer stage, unspecified whether varicose veins present Nuno Cantor MD [address] [place] [address] [facility] [address] [place] [address] Referral ID Status Reason Start Date Expiration Date V isits Requested Visits Authorized [id number] New Request 03/07/2022 04/01/2023 1 1 [facility] for referral (narrative)* Consultation (Urgent) - New Request Specialty Diagnoses / Procedures Referred By Contac t Referred To Contact Infectious Diseases Diagnoses Referral of patient Chronic viral hepatitis B without delta agent and 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 Chronic hepatitis C without hepatic coma Pattie Roman, [employer] [address] [place] [address] Nathan Hayden MD [address] [place] [address] Referral ID Status Reason Start Date Expiration Date V isits Requested Visits Authorized [id number] New Request 06/07/2022 07/02/2023 1 1 Electronically signed by Pattie Roman [employer] at 06/07/2022 6:43 PM EDT * Consultation (Urgent) - New Request Specialty Diagnoses / Procedures Referred By Contac t Referred To Contact Family Medicine Diagnoses Referral of patient Chronic viral hepatitis B without delta agent and 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 Chronic hepatitis C without hepatic coma Pattie Roman [employer] [address] [place] [address] Referral ID Status Reason Start Date Expiration Date V isits Requested Visits Authorized [id number] New Request 06/07/2022 07/02/2023 1 1 Electronically signed by Pattie Roman [employer] at 06/07/2022 6:43 PM EDT [facility] for referral (narrative)* Consultation (Routine) - New Request Specialty Diagnoses / Procedures Referred By Contac t Referred To Contact Podiatry Diagnoses Wound of right lower extremity, subsequent encounter Nathan Hayden MD [address] [place] [phone] Felipe Molina DPM [address] [place] [address] Referral ID Status Reason Start Date Expiration Date V isits Requested Visits Authorized [id number] New Request 09/29/2022 10/24/2023 1 1 * Consultation (Routine) - New Request Specialty Diagnoses / Procedures Referred By Contac t Referred To Contact Hematology Diagnoses Pancytopenia Nathan Hayden MD [address] [place] [phone] Referral ID Status Reason Start Date Expiration Date V isits Requested Visits Authorized [id number] New Request 09/29/2022 10/24/2023 1 1 [facility] for referral (narrative)* Consultation (Routine) - Closed Specialty Diagnoses / Procedures Referred By Contac t Referred To Contact Wound Care Diagnoses Wound of right lower extremity, subsequent encounter Nathan Hayden MD [address] [place] [phone] Jessenia Perry, [employer] [address] [place] [address] Referral ID Status Reason Start Date Expiration Date Visits Re quested Visits Authorized [id number] Closed 11/03/2022 11/28/2023 1 1 [facility] for referral (narrative)* Consultation (Routine) - New Request Specialty Diagnoses / Procedures Referred By Contac t Referred To Contact Podiatry Diagnoses Foot mass, right Hay, Nj L, [employer] [address] [place] [phone] Kristi Bryan DPM [address] [place] [phone] Referral ID Status Reason Start Date Expiration Date V isits Requested Visits Authorized [id number] New Request 01/25/2023 02/19/2024 1 1 [facility] for referral (narrative)* (Routine) Specialty Diagnoses / Procedures Referred By Contac t Referred [facility] [address] [place] [address] Referral ID Status Reason Start Date Expiration Date Visits Re quested Visits Authorized [facility] for referral (narrative)* Consultation (Routine) - Authorized Specialty Diagnoses / Procedures Referred By Contac t Referred To Contact General Surgery Diagnoses Encounter for screening colonoscopy Ani Worley, [employer] [address] [place] [address] [facility], [address] [place] [address] Referral ID Status Reason Start Date Expiration Date Visits Requested Visits Authorized [id number] Authorized Specialty Services Required/Pat ient's Best Interest 12/22/2023 12/21/2024 1 1 [facility] Assessments Diagnosis Hallux valgus (acquired), ri [...] exacerbation of chronic obstructive pulmonary disease (COPD) ([facility])- Primary Obstructive chronic bronchitis with exacerbation Diagnosis [...] left lower lobe due to infectious organism ([facility]) Influenza A Influenza with other respiratory manifestations COPD exacerbation ([facility]) Obstructive chronic bronchitis with exacerbation Pneumonia Pneumonia, [...] exacerbation of chronic obstructive pulmonary disease (COPD) ([facility])- Primary Obstructive chronic bronchitis with exacerbation Acute respiratory failure, unspecified whether with hypoxia or hypercapnia ([facility]) COPD exacerbation ([facility]) Obstructive chronic bronchitis with exacerbation Cannabis abuse Nondependent cannabis abuse, unspecified Acute on chronic respiratory failure with hypoxia and hypercapnia ([facility]) Essential hypertension Unspecified essential hypertension Atrial fibrillation with rapid ventricular response ([facility]) Acute congestive heart failure ([facility]) Congestive heart failure, unspecified Morbid obesity with BMI of 40.0-44.9, adult ([facility]) Type 2 diabetes mellitus, without long-term current use of insulin ([facility]) Diagnosis Chronic obstructive pulmonary disease with acute [...] asthma severity, unspecified whether persistent Morbid obesity ([facility]) Morbid obesity H/O CHF Paroxysmal atrial fibrillation [...] by a physician near his home in [facility], who recommended that he undergo PT evaluation [...] that he came all the way to [place] for a second opinion because he heard [...] Instructions Prior to Surgery BENJA: Printed on:07/31/18 [id number] Medication Information Take last dose on Take [...] likely benefit from elective amputation of the [id number] digit. However, patient would prefer to try [...] states that he could go to a penitentiary or stay in the hospital for a [...] left side. After he meets with the social science instructor if they have a plan for what [...] MTP joint. He saw a practitioner in [place] and was told that he could have [...] were reviewed and updated as appropriate in [facility]. He is not a current tobacco user. [...] APPROVED FOR 2 WEEKS OR LESS FOR [facility] C[facility]. HE COULD GET RELEASED TO HOME [...] a bedpan in a wheelchair in a penitentiary combination postop. However the details of this [...] were reviewed and updated as appropriate in [facility]. He is not a current tobacco user. [...] Norman Baldwin MD in this encounter* Palmer Gievns PA - 11/06/2018 11:15 AM EDT History [...] Parrish, PT - 10/26/2019 10:45 AM EST [facility] Evaluation Today's Date 10/26/2019 [...] and mobility Do Parrish PT STATE LICENSE, [id number] documented in this encounter* Jhonny Medel MD - 01/04/2020 3:09 PM EDT Interventional Cardiology Clinic Note ID: Carmen Gilman is a 54 y.o. male : 1965 CC: Preop cardiac risk stratification HPI: I had the pleasure of evaluating Mr. Carmne Gilman at [facility] in [place] today. He is referred by Dr. Sofía [...] Medel MD, FACC Interventional Cardiology/Structural Heart Disease [facility] documented in this encounter* Palmer Givens PA [...] pre-op testing he will be seeing an [facility] horser up on November 05 for evaluation. He has [...] encouraged to go to an ER in [place] if his respiratory symptoms return/worsen. Pt also [...] anything stronger for his chronic pain. * Ashlye Kumar RN - 11/06/2019 7:41 PM EDT [...] that [facility] is a tobacco free hospital and he [...] Pt lives alone in his residence in [place]. Pt was not utilizing any services in [...] but patient continuesto refuse. 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 He states that he lives on a [...] were reviewed and updated as appropriate in [facility]. He is not a current tobacco user. [...] needs his suboxone or he is leaving. [facility] called and updated. AMA paper signed per patient. slot machine floor person in room to discontinue PICC line, IV,and Tavera catheter. * Mayur Hernandez MD - 07/09/2020 5:44 PM EST NEPHROLOGY PROGRESS [facility] Patient Name: Carmen Gilman Admit Date: MR #: [id number] : 1965 ASSESSMENT/PLAN: 1. Edema - probably [...] Q12H [facility]SI[facility] furosemide 40 mg Intravenous Q8H [facility] lispro insulin 0-15 Units Subcutaneous at bedtime insulin lispro 0-30 Units Subcutaneous TID AC ipratropium-albuteroL 3 mL Inhalation Q4H [facility] predniSONE 40 mg Oral Daily rivaroxaban 20 mg Oral Daily senna-docusate 1 tablet Oral BID sodium chloride (PF) 10 mL Intracatheter Q8H [facility] sodium chloride (PF) 5 mL Intravenous Q8H [facility] Continuous Infusions: sodium chloride 0.9 % Results [...] Murrell MD - 07/09/2020 4:29 PM EST [facility] Medicine Inpatient Follow-up 07/09/2020 Krys Murrell MD [facility] Patient: Carmen Gilman Date of : 1965 (54 y.o.) PCP: Mari Lee MD ASSESSMENT/PLAN: Carmen Gilman 54 y.o. male presented with complains of shortness of breath and altered mental status Principal Problem: Acute exacerbation of chronic obstructive pulmonary disease (COPD) ([facility]) Active Problems: Acute on chronic respiratory failure with hypoxia and hypercapnia (HCC) Essential hypertension Atrial fibrillation with rapid ventricular response (HCC) Acute congestive heart failure (HCC) Morbid obesity with BMI of 40.0-44.9, adult (HCC) Type 2 diabetes mellitus, without long-term current use of insulin ([facility]) PLAN: Acute metabolic encephalopathy resolved AMMONIA elevated on admission Check ammonia in a.m. 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 related to acute pulmonary [...] Carmen Gilman Date of : 1965 Site: [facility] Referring Provider: Refer to consult order in [...] AMA. I tried to review records from [facility] ED in care everywhere and I could [...] requested records for review since records in [facility] were limited and patient is a poor historian. He did leave AMA which we discussed was a poor decision, he agreed. I made referral to cardiology and hematology based on the results I reviewed from [facility]. I ordered a CBC and CMP lab [...] He was seen in ED again at [facility] on 08/01/20 for suspect COVID, no COVID [...] the legs. He is taking buprenorphine from talent development specialist and taking gabapentin daily. No complications [...] see how he is doing. LMOM at [phone] and asked to return my call. I also called [phone], no answer, no voice mail set up. documented in this encounter* Merry Barba LPN - 01/18/2020 8:31 AM EDT Error documented in this encounter* Lena Hill, RETURNED GOODS SORTER - 09/21/2019 9:13 AM EST Carmen Moeller [...] here today to be referred to Dr. Dkues for a knee replacement. PMH: No Known [...] file Gets together: Not on file Attends voodoo service: Not on file Active member of [...] - 01/11/2020 11:21 AM EDT Jahaira from [facility] called patient is c/o 05/31 for right [...] FoundDocuments on File Type Date Recorded Patient X Ray Inspector Expl anation Advance Directives and Livin g Will 04/03/2019 8:34 AM Documents on File Type Date Recorded Patient X Ray Inspector Expl anation Advance Directives and Livin g Will 09/21/2019 8:34 AM Documents on File Type Date Recorded Patient X Ray Inspector Expl anation Advance Directives and Livin g Will 01/03/2020 7:53 AM Documents on File Type Date Recorded Patient X Ray Inspector Expl anation Advance Directives and Livin g Will 01/03/2020 7:53 AM Documents on File Type Date Recorded Patient X Ray Inspector Expl anation Advance Directives and Living Will Power of Quality Control Systems Manager Latest Code Status on File Code Status Date Activated Date Inactivated Comments Full Code 11/06/2019 5:29 AM Documents on File Type Date Recorded Patient X Ray Inspector Expl anation Advance Directives and Livin g Will 01/08/2020 12:00 AM Latest Code Status on File Code Status Date Activated Date Inactivated Comments Full Code 01/08/2020 8:43 AM 01/08/2020 10:58 PM Documents on File Type Date Recorded Patient X Ray Inspector Expl anation Advance Directives and Livin g Will 01/08/2020 12:00 AM Latest Code Status on File Code Status Date Activated Date Inactivated Comments Full Code 01/08/2020 8:43 AM 01/08/2020 10:58 PM Documents on File Type Date Recorded Patient X Ray Inspector Expl anation Advance Directives and Livin g Will 01/30/2020 2:16 PM Documents on File Type Date Recorded Patient X Ray Inspector Expl anation Advance Directives and Livin g Will 04/22/2020 2:02 PM Documents on File Type Date Recorded Patient X Ray Inspector Expl anation Advance Directives and Livin g Will 06/11/2020 12:42 PM Documents on File Type Date Recorded Patient X Ray Inspector Expl anation Advance Directives and Livin g Will 07/08/2020 12:21 AM Latest Code Status on File Code Status Date Activated Date Inactivated Comments Full Code - Unverified 07/08/2020 1:21 AM 07/09/2020 1 1:01 PM Documents on File Type Date Recorded Patient X Ray Inspector Expl anation Advance Directives and Livin g Will 06/11/2020 12:42 PM Advance Directives and Livin g Will 07/28/2020 12:21 AM Full Code 01/08/2020 8:43 AM 01/08/2020 10:58 PM Documents on File Type Date Recorded Patient X Ray Inspector Expl anation Advance Directives and Livin g Will 06/11/2020 12:42 PM Advance Directives and Livin g Will 08/01/2020 8:49 AM Documents on File Type Date Recorded Patient X Ray Inspector Expl anation Advance Directives and Livin g Will 06/11/2020 12:42 PM Advance Directives and Livin g Will 11/01/2020 4:46 PM Documents on File Type Date Recorded Patient X Ray Inspector Expl anation Advance Directives and Livin g Will 09/21/2019 8:34 AM Documents on File Type Date Recorded Patient X Ray Inspector Expl anation Advance Directives and Livin g Will 06/11/2020 12:42 PM Advance Directives and Livin g Will 12/03/2020 12:47 PM Latest Code Status on File Code Status Date Activated Date Inactivated Comments Full Code 12/03/2020 1:59 PM 12/04/2020 5:57 PM Full Code - Unverified 07/08/2020 1:21 AM 07/09/2020 1 1:01 PM Documents on File Type Date Recorded Patient X Ray Inspector Expl anation Advance Directives and Livin g [...] to contact your Care Team: Provider: Jhonny Mdeel MD Nurse: Domi Snell RN In case of an emergency please call [phone]. REFILLS: When in need for refills please call your care team or the office at [phone]. Please include medication name, pharmacy name, and [...] through Care Everywhere. * COPD: General Info (Algerian) documented in this encounter* Attachments The following attachments cannot be sent through Care Everywhere. * COPD: Asthma (Algerian) documented in this encounter* Discharge Instr - [...] your doctor if you can take an [id number] medicine. ? Plan to take your pain [...] Log into your personal health record on [email or web address] and enter T054 in the "Education" box to learn more about "Total Knee Replacement: What to Expect at Home." Current as of: February 14, 2019 Content Version: 12.3 [id number] [employer]. Care instructions adapted under license by your healthcare professional. If you have questions about a medical condition or this instruction, always ask your healthcare professional. [employer] disclaims any warranty or liability for your use of this information. documented in this encounter* Attachments The following attachments cannot be sent through Care Everywhere. * Asthma: Adult (Algerian) * COVID-19 SELF ISOLATION DISCHARGE INSTRUCTIONS * Coronavirus Disease (COVID-19): General Info (Algerian) documented in this encounter* Instructions* Christopher Ng [...] Right Without Contrast Sofía Dukes MD [address] [id number] Status Reason Specialty Diagnoses / Procedures Referred By Contact Referred To Contact New Request Diagnoses Essential hypertension SOB (shortness of breath) on exertion Leg edema Procedures ECHOCARDIOGRAM GA ECHO HEART XTHORACIC,COMPLETE W DOPPLER Palmer Givens PA [address] [place], [place] [phone] Status Reason Specialty Diagnoses / Procedures Referred By Contact Referred To Contact Authorized Specialty Services Required/Patie nt[facility] Diagnoses S/P total knee arthroplasty, right Sofía Dukes MD [address] [id number] Status Reason Specialty Diagnoses / Procedures Referred By Contact Referred To Contact New Request Cardiovascular Medicine Diagnoses Atrial fibrillation, unspecified type Essential hypertension Elevated troponin Elevated brain natriuretic peptide (BNP) level Palmer Givens PA [address] [place] [phone] Scheduling Instructions . Status Reason Specialty Diagnoses / Procedures Referred By Contact Referred To Contact New Request Hematology Diagnoses Anemia, unspecified type Thrombocytopenia Palmer Givens PA [address] [place] [phone] Status Reason Specialty Diagnoses / Procedures Referred By Contact Referred To Contact Authorized Orthopedic Surgery / Sports Medicine Diagnoses Tricompartment osteoarthritis of right knee Lena Hill, RETURNED GOODS SORTER [address] [facility] [address] [place] [address] Sofía Dukes MD [address] [id number] Status Reason Specialty Diagnoses / Procedures Referred By Contact Referred To Contact Authorized Physical Therapy / Rehabilitation Diagnoses Tricompartment osteoarthritis of right knee Lena Hill, RETURNED GOODS SORTER 24 [facility] [address] [place] [address] [facility] [address] [place] [address] Specialty Diagnoses / Procedures Referred By Contac t Referred To Contact Diagnoses Cirrhosis of liver without ascites, unspecified hepatic cirrhosis type Chronic hepatitis C without hepatic coma Procedures DIAGNOSTIC UPPER ENDOSCOPY GA ESOPHAGOGASTRODUODENOSCOPY TRANSORAL DIAGNOSTIC Antony Suarez Jr., DO [address] [place] [address] Referral ID Status Reason Start Date Expiration Date V isits Requested Visits Authorized [id number] New Request 08/26/2022 09/20/2023 1 1 Referral ID Status Reason Start Date Expiration Date Visits Re quested Visits Authorized [id number] Closed 09/23/2022 10/18/2023 1 1 Specialty Diagnoses / Procedures Referred By Contac t Referred To Contact Physical Therapy Diagnoses Lymphedema Nj Ayala, ORAL AND MAXILLOFACIAL SURGERY-RETURNED GOODS SORTER [address] [place] [phone] Marcelina Tee, TAISHA Referral ID Status Reason Start Date Expiration Date V isits Requested Visits Authorized [id number] New Request 11/23/2022 12/18/2023 1 1 Specialty Diagnoses / Procedures Referred By Contac t Referred To Contact Computerized Tomography Scan Diagnoses Hand weakness Procedures CT HEAD WITHOUT CONTRAST GA CT SCAN,HEAD/BRAIN,W/O CONTRAST Nathan Mcguire MD [address] [place] [address] Scan [address] [place] [address] Referral ID Status Reason Start Date Expiration Date Visits Re quested Visits Authorized [id number] Closed 11/24/2022 12/19/2023 1 1 Specialty Diagnoses / Procedures Referred By Contac t Referred To Contact Diagnoses Mass of right foot Procedures XR FOOT RIGHT 3 VIEWS Kristi Bryan, DPM [address] [place] [address] Referral ID Status Reason Start Date Expiration Date V isits Requested Visits Authorized [id number] New Request 02/08/2023 03/04/2024 1 1 Specialty Diagnoses / Procedures Referred By Contac t Referred To Contact Procedures INPATIENT ADMISSION NOTIFICATION Tyshawn Rodríguez MD [address] [place] [address] Referral ID Status Reason Start Date Expiration Date V isits Requested Visits Authorized [id number] New Request 02/26/2023 03/22/2024 1 1 Specialty Diagnoses / Procedures Referred By Contac t Referred To Contact Procedures C REACTIVE PROTEIN Tyshawn Franklin PA-C [address] [place] [address] Referral ID Status Reason Start Date Expiration Date V isits Requested Visits Authorized [id number] New Request 03/16/2023 04/09/2024 1 1 Specialty Diagnoses / Procedures Referred By Contac t Referred To Contact Procedures ECG Tyshawn Franklin PA-C [address] [place] [address] Referral ID Status Reason Start Date Expiration Date V isits Requested Visits Authorized [id number] New Request 03/16/2023 04/09/2024 1 1 Specialty Diagnoses / Procedures Referred By Contac t Referred To Contact Social Work Diagnoses Healthcare maintenance JackelinNathan MD [address] [place] [address] Referral ID Status Reason Start Date Expiration Date V isits Requested Visits Authorized [id number] New Request 04/18/2023 05/12/2024 1 1 Specialty Diagnoses / Procedures Referred By Contac t Referred To Contact Diagnoses Foot infection Christian Porter MD [address] [place] [address] Referral ID Status Reason Start Date Expiration Date V isits Requested Visits Authorized [id number] Pending Review 1 1 Specialty Diagnoses / Procedures Referred By Contac t Referred To Contact Wound Care Diagnoses Wound cellulitis Quyen Franco, RETURNED GOODS SORTER [address] [place] [address] Cecilia Gonzales DPM [address] [place] [address] Referral ID Status Reason Start Date Expiration Date V isits Requested Visits Authorized [id number] Authorized 08/11/2023 08/10/2024 1 1 Specialty Diagnoses / Procedures Referred By Contac t Referred To Contact Wound Care Diagnoses Cellulitis, unspecified cellulitis site Reg Hartman MD [address] [phone] Luis Daniel Cao III DO [address] [place] [address] Referral ID Status Reason Start Date Expiration Date Visits Requested Visits Authorized [id number] Authorized Specialty Services Required/Pat kyle's Best Interest 12/22/2023 12/21/2024 1 1 Hospital Course * Felipe Sinha DO - 12/04/2020 3:52 PM EDT INTERNAL MEDICINE DISCHARGE SUMMARY 12/04/2020 Felipe Sinha DO [facility] Patient: Carmen Gilman Date of : 1965 (55 y.o.) PCP: Mari Lee MD Hospital: [facility] Admit Date: 12/03/2020 Discharge Date/Time: 12/04/20 [...] daily and known COPD who presented to [facility] emergency department yesterday with acute shortness of [...] at that time. The patient presents to [facility] emergency room yesterday with severe shortness of [...] initial encounter Quyen Franco CNP [address] [place] [address] Quyen Franco CNP [address] [place] [address] Referral ID Status Reason Start Date Expiration Date Visits Re quested Visits Authorized [id number] Closed 05/20/2023 05/19/2024 1 1 Reason Comments [...] Tricompartment osteoarthritis of right knee Lena Hill, RETURNED GOODS SORTER 24 [facility] [address] [place] [address] [facility] [address] [place] [address] Status Reason Specialty Diagnoses / Procedures Referre d By Contact Referred To Contact Closed Radiology Diagnoses Primary osteoarthritis of right knee Procedures CT Knee Right Without Contrast Sofía Dukes MD [address] [place] [address] Reason Comments Pre-op Exam right knee replaceme nt, s/,Dr dukes,Denies Chest pain,pressure,SOB,Swelling Status Reason Specialty Diagnoses / Procedures Referred By Contact Referred To Contact Closed Specialty Services Required/Patien t[facility] Interest Cardiology Diagnoses Primary osteoarthritis of right knee Sofía Dukes MD [address] [place] [address] [address] [facility] [address] [facility] [place] [address] Reason Comments Follow-up Right knee surgery Reason Comments Shortness of Breath SOB past couple of d ays, worsening tonight Status Reason Specialty Diagnoses / Procedures Re ferred By Contact Referred To Contact Diagnoses Primary osteoarthritis of right knee Primary osteoarthritis of right knee [M17.11] Procedures GA TOTAL KNEE ARTHROPLASTY GA CPTR-ASST SURGICAL NAVIGATION IMAGE-LESS Right total knee replacment [49589] Sofía Dukes MD [address] [place] [address] Reason Comments Knee Pain Status Reason Specialty [...] failure with hypoxia (HCC) [facility] Reason Comments Medication Refill Follow-up Reason [...] Expiration Date Visits Re quested Visits Authorized [id number] 1 1 Reason Comments Toe Pain Pt [...] foot pain Sofía Devine MD [address] [place] [address] Felipe Molina, DPM [address] [place] [address] Referral ID Status Reason Start Date Expiration Date V isits Requested Visits Authorized [id number] Pending Review 03/30/2021 04/24/2022 1 1 Reason [...] Expiration Date Visits Re quested Visits Authorized [id number] 1 1 Reason Comments Abscess Right lower [...] without hepatic coma Procedures DIAGNOSTIC UPPER ENDOSCOPY GA ESOPHAGOGASTRODUODENOSCOPY TRANSORAL DIAGNOSTIC Erick Snow, Antony Morgan, [address] [place] [address] Referral ID Status Reason Start Date Expiration Date Visits Re quested Visits Authorized [id number] Closed 09/23/2022 10/18/2023 1 1 Reason Comments Follow-up Chronic hepatitis C without hepatic coma Reason Comments Wound Check Circulatory problem Reason Comments Wound Check Circulatory problem Reason Comments New Patient Pancytopenia Specialty Diagnoses / Procedures Referred By Contac t Referred To Contact Computerized Tomography Scan Diagnoses Hand weakness Procedures CT HEAD WITHOUT CONTRAST GA CT SCAN,HEAD/BRAIN,W/O CONTRAST Nathan Mcguire MD [address] [place] [address] [place] [address] Referral ID Status Reason Start Date Expiration Date Visits Re quested Visits Authorized [id number] Closed 11/24/2022 12/19/2023 1 1 Reason Comments Follow-up Hep C Reason Comments Wound Check Reason Comments New Patient R foot mass, open wo und. 7 walking, 4 resting Specialty Diagnoses / Procedures Referred By Contac t Referred To Contact Podiatry Diagnoses Foot mass, right Hay, Ami L, ORAL AND MAXILLOFACIAL SURGERY-RETURNED GOODS SORTER [address] [place] [address] Kristi Bryan, DPM [address] [place] [address] Referral ID Status Reason Start Date Expiration Date V isits Requested Visits Authorized [id number] New Request 01/25/2023 02/19/2024 1 1 Reason Comments Leg Swelling Bilateral leg swelli ng. Hit leg on bike last pm. Laceration Left lower leg. Reason Comments Cellulitis Bilateral lower leg cellulitis, following up with , did not fiber picker new antibiotics Specialty Diagnoses / Procedures Referred By Contac t Referred To Contact Power Nelson MD [address] [phone] [facility] Referral ID Status Reason Start Date Expiration Date Visits Re quested Visits Authorized [id number] 1 1 Reason Onset Date Comments H&P [...] Expiration Date Visits Re quested Visits Authorized [id number] 1 1 Specialty Diagnoses / Procedures Referred By Contac t Referred To Contact Wound Care Diagnoses Wound cellulitis Quyen Franco, RETURNED [employer] SORTER [address] [place] [address] Cecilia Gonzales DPM [address] [place] [address] Referral ID Status Reason Start Date Expiration Date Visits Re quested Visits Authorized [id number] Closed 08/11/2023 08/10/2024 1 1 Reason Comments [...] Expiration Date Visits Re quested Visits Authorized [id number] 1 1 Reason Comments Shortness of Breath Specialty Diagnoses / Procedures Referred By Contac t Referred To Contact Diagnoses Acute exacerbation of chronic obstructive pulmonary disease (COPD) ([facility]) Referral ID Status Reason Start Date Expiration Date Visits Re quested Visits Authorized [id number] 1 1 Reason Comments Evaluate Specialty Diagnoses / Procedures Referred By Contac t Referred To Contact Vascular Surgery Diagnoses PVD (peripheral vascular disease) Ani Worley, RETURNED GOODS SORTER [address] [place] [address] Phone: tel: fax: [facility] [address] [place] [address], 3rd [place] [address] Phone: tel: fax: Referral ID Status Reason Start Date Expiration Date Visits Re quested Visits Authorized [id number] Closed 12/25/2024 12/25/2025 1 1 Reason Comments Knee Pain generalized weakness Specialty Diagnoses / Procedures Referred By Contac t Referred To Contact Diagnoses Adult failure to thrive Generalized weakness Congestive heart failure, unspecified HF chronicity, unspecified heart failure type ([facility]) Referral ID Status Reason Start Date Expiration Date Visits Re quested Visits Authorized [id number] 1 1 Reason Comments Pain Reason Comments Knee Pain Specialty Diagnoses / Procedures Referred By Contac t Referred To Contact Diagnoses Cellulitis Referral ID Status Reason Start Date Expiration Date Visits Re quested Visits Authorized [id number] 1 1 Reason Comments Post-op RT KNEE [...] section and content) DATE CREATED AUTHOR 07/31/2018 [facility] DATE CREATED AUTHOR AUTHOR'S ORGANIZ ATION 11/13/2019 [facility] DATE CREATED AUTHOR AUTHOR'S ORGANIZ ATION 01/28/2020 [facility] DATE CREATED AUTHOR AUTHOR'S ORGANIZ ATION 07/11/2020 [facility] DATE CREATED AUTHOR AUTHOR'S ORGANIZ ATION 01/18/2021 [facility] DATE CREATED AUTHOR AUTHOR'S ORGANIZ ATION 06/04/2021 [facility] DATE CREATED AUTHOR AUTHOR'S ORGANIZ ATION 05/04/2022 [facility] DATE CREATED AUTHOR AUTHOR'S ORGANIZ ATION 04/26/2023 [facility] DATE CREATED AUTHOR AUTHOR'S ORGANIZ ATION 09/10/2023 [facility] DATE CREATED AUTHOR AUTHOR'S ORGANIZ ATION 02/16/2024 [facility] DATE CREATED AUTHOR AUTHOR'S ORGANIZ ATION 03/08/2024 [facility] DATE CREATED AUTHOR AUTHOR'S ORGANIZ ATION 04/28/2024 [facility] DATE CREATED AUTHOR AUTHOR'S ORGANIZ ATION 06/19/2024 [facility] DATE CREATED AUTHOR AUTHOR'S ORGANIZ ATION 05/24/2025 [facility] DATE CREATED AUTHOR AUTHOR'S ORGANIZ ATION 07/02/2025 [facility] DATE CREATED AUTHOR AUTHOR'S ORGANIZ ATION 07/04[facility]20[facility] Kinsey Ignacio MD - 04/03/2019 8:13 AM Ovidio Lira RN - 04/03/2019 8:04 AM Ovidio Lira RN - 04/03/2019 7:56 AM EDTLong Mcfadden LPN - 04/03/2019 7:54 AM EDT ED Notes (unrecognized secti on and content) Associated Order(s): ECG 12 [address] [facility] NAME: Carmen Gilman AGE: 53 y.o. : 1965 VISIT DATE: 04/03/2019 CSN: [id number] PCP: Mari Lee MD Chief Complaint Patient [...] Anxiety Asthma COPD (chronic obstructive pulmonary disease) ([facility]) Diabetes ([facility]) Hypertension Past Surgical History: Procedure Laterality Date [...] file Gets together: Not on file Attends voodoo service: Not on file Active member of [...] Range Anisocytosis 2+ Microcytosis 2+ Hypochromia 2+ [place] Cells 1+ XR Chest 1 View Final Result No acute cardiopulmonary disease. Workstation ID: [id number] ECG 12 Lead Date/Time: 04/03/2019 10:12 AM Performed by: Kinsey Ignacio MD Authorized by: Kinsey Ignacio MD Comparison: compared with previous ECG Rhythm: sinus rhythm BPM: 56 Conduction: conduction normal ST Segments: ST segments normal T Waves: T waves normal normal GA interval normal QRS interval normal QT interval Clinical impression: normal ECG [facility] Patient is a 53-year-old male with [...] bradycardia rate of 56 beats per minutes GA interval of 154 ms QRS of 86 [...] Medicine Why: If symptoms worsen [address] [id number] Contact information for after-discharge care Follow-up information [...] valuables. Associated Order(s): Intubation ED PROVIDER NOTE [facility] NAME: Carmen Gilman AGE: 54 y.o. : 1965 VISIT DATE: 07/07/2020 CSN: [id number] PCP: No primary care provider on file. [...] file Gets together: Not on file Attends voodoo service: Not on file Active member of [...] VOLUME 500 PEEP 5 RESP RATE 16 [id number] 66.6 mm Hg POC Arterial Blood Gas [...] VOLUME 500 PEEP 5 RESP RATE 16 [id number] 66.6 mm Hg CBC Auto Differential Result [...] to verify the correct patient, procedure, equipment, office support associate and site/side marked as required. Timeout performed [...] Follow-up information has not been specified. Kinsey Ignacio MD 07/07/20 2311 Kinsey Ignacio MD 07/07/20 [...] TO SEND SPECIMEN Associated Order(s): EKG 12-lead [facility] PCP - Mari Lee [...] pneumonia. Trace left pleural effusion is suspected. Corefino/richard Workstation ID: [id number] Medications Ordered/Given During ED [...] segments normal T Waves: T waves normal GA Interval: 150 QRS Interval: 78 QT Interval: [...] file Gets together: Not on file Attends voodoo service: Not on file Active member of [...] with signage outside this patient's room. This home care and home health aides teacher performs hand hygiene and enters the patient room wearing: ? gloves ? an appropriately fitting (N-95, PAPR, Aura) mask ? face shield ? protective gown to provide care. See documentation for the care provided. This psa escorted patient by wheelchair to room 1. documented in this encounter ED PROVIDER NOTE [facility] NAME: Carmen Gilman AGE: 55 y.o. : 1965 VISIT DATE: 11/01/2020 CSN: [id number] PCP: Mari Lee MD Chief Complaint Patient [...] file Gets together: Not on file Attends voodoo service: Not on file Active member of [...] ms QTC Calculation (Bezet) 432 ms P [place] 75 degrees R [place] 65 degrees T [place] 66 degrees CBC Auto Differential Result Value [...] disease) (HCC) Diabetes (HCC) Hypertension Opioid dependence ([facility]) Past Surgical History Past Surgical History: Procedure [...] Allergies No Known Allergies Medications Carmen Gilman Cando Medication Instructions Prior to Surgery [id number] Printed on:12/03/20 5224 Medication Information Take last dose on Take [...] Procedure Abnormality Status --------- ------ CBC Auto Differential[[id number]] Abnormal Final result CBC and Diff Morphology[[id number]] Abnormal Final result Please view results for [...] EMS provided pt with albuterol nebulizer treatment FIRMWARE 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 documented in this encounter Sofía Dukes MD - 01/08/2020 6:50 AM EDTBSofía craig MD - 01/04/2020 3:35 PM EDTCVenancio faulkner MD - 07/08/2020 1:21 AM EST H&P Notes (unrecognized sect ion and content) INTERVAL HISTORY AND PHYSICAL Patient Name: Carmen Gilman Admit Date: MR #: [id number] : 1965 The H&P has been reviewed [...] a Lalito robotic-assisted total knee replacement using [place] Total Knee Replacement System. I did a [...] does understand this. documented in this encounter [facility] Inpatient H&P 07/08/2020 Venancio Quiros MD [facility] Patient: Carmen Gilman Date of : [...] Morbid obesity with BMI of 40.0-44.9, adult ([facility]) PLAN: Inpatient admission to critical care. Cardiac monitoring. Vent support. Pain/sedation protocol with fentanyl and propofol. Early mobility protocol. Septic Tank Installer referral for tube feed recommendations. KUB to confirm OG tube placement. Tavera for accurate UOP monitoring. Key Maker consult. Steroids, DuoNebs, Pulmicort, azithromycin. Sputum and [...] VOLUME 500 PEEP 5 RESP RATE 16 [id number] 66.6 mm Hg POC Arterial Blood Gas [...] VOLUME 500 PEEP 5 RESP RATE 16 [id number] 66.6 mm Hg Lactic Acid, Plasma Collection [...] abnormality Abnormal ECG Vent. rate 150 BPM GA interval * ms QRS duration 88 ms [...] MEDICINE HISTORY AND PHYSICAL 12/04/2020 Felipe Sinha, [facility] Patient: Carmen Gilman Date of : 1965 (55 y.o.) PCP: Mari Lee MD ASSESSMENT/PLAN: COPD with acute exacerbation ([facility]) Mr. Gilman is a very pleasant 55-year-old male with a past medical history significant for hypertension, type 2 diabetes mellitus, and known COPD who was hospitalized within the last year with an acute exacerbation of COPD that was severe requiring intubation and mechanical ventilation at that time. The patient presents to [facility] emergency room yesterday with severe shortness of [...] complication, without long-term current use of insulin ([facility]) Patient currently not on antihyperglycemic medications and will continue to monitor closely since he will be on IV steroids at this time. Essential hypertension Blood pressures currently well controlled on current regimen of diltiazem 240 mg daily and lisinopril 20 mg daily. Opioid dependence ([facility]) Patient denies any illicit drug use and is currently on Suboxone 8 mg twice daily. We will continue and monitor closely. SUBJECTIVE: Chief Complaint/Reason for Visit: HISTORY OF PRESENT ILLNESS: Carmen Gilman is a 55 y.o. male admitted to [facility]. REVIEW OF SYSTEMS: Constitutional:No fever, no [...] barrier, family / caregiver support is a prefabricator for return to prior level of function. The patient's compliance is a prefabricator, awareness of own capacity and performance is a prefabricator to return to prior level of function. [...] Cane Prior Level of Function Level of [place]: Needs assistance with ADLs, Needs assistance with [...] toilet riser for home use obtained from [facility] for in-room delivery. Patient planning to [...] and SOB. Transfers Sit to Stand: Min Metal Fabricator Apprentice: Wheeled walker Skilled Intervention: Vc for hand [...] Cane Prior Level of Function Level of [place]: Needs assistance with ADLs, Needs assistance with [...] Date of : 1965 Sex: Male [place], [employer], met with the patient today after his right knee replacement surgery and confirmed the plan that was set during [facility] [place]. The patient will return home with services from [facility]. Secure note sent to Sho Malagon RN [...] Facility Type: Home care [facility] [place] Assessment: Met with the patient during [facility] [...] difficulty with mobility and may need a correction facility at discharge. The patient wants to have [facility] at discharge, a referral will be made. The patient will need a wheeled walker after surgery and would like to have the equipment from [facility] Will fax the request and face sheet to [facility]. Verified patient s address and phone number. [...] completed with patient. He was educated to adoption social worker role. Patient was independent prior. He did [...] assistance Transfers Sit to Stand: Contact guard Metal Fabricator Apprentice: Wheeled walker Gait/Locomotion Gait Assistance: Contact guard [...] Walker Prior Level of Function Level of [place]: Needs assistance with ADLs Lives With: Spouse [...] deficit. The patient's home setup is a prefabricator for return to prior level of function. The patient's education level is a prefabricator to return to prior level of function. [...] Raised Prior Level of Function Level of [place]: Needs assistance with ADLs Lives With: Spouse [...] ASSOCIATES Patient Name: Carmen Gilman MR #: [id number] : 1965 Requesting physician: interventist Reason for [...] file Gets together: Not on file Attends voodoo service: Not on file Active member of [...] Carmen Gilman Date of : 1965 Site: [facility] Referring Provider: Refer to consult order in [...] Full Code Associated Order(s): IP CONSULT TO PRODUCE LABORER CRITICAL CARE CONSULT 07/08/2020 Patient: Carmen Gilman Date of : 1965 Site: [facility] Referring Provider: Refer to consult order in [...] in EMR where patient has seen a Sheetmetal Worker. Additional history of HTN, prior heroin abuse [...] solution 0.5 mg 0.5 mg Nebulization BID Jesesnia Ferrer, [facility],PharmD 0.5 mg at 07/08/20 0824 chlorhexidine (PERIDEX) 0.12 % solution 15 mL 15 mL Swab BID Venancio Quiros MD 15 mL at 07/08/20 0856 diltiazem (CARDIZEM) 125 mg in sodium chloride infusion 0-15 mg/hr Intravenous Continuous Venancio Quiros MD Stopped at 07/08/20 0753 famotidine (PEPCID) tablet 20 mg 20 mg Oral Q12H [facility] Venancio Quiros MD 20 mg at 07/08/20 [...] solution 3 mL 3 mL Inhalation Q4H [facility] Venancio Quiros MD 3 mL at 07/08/20 0816 lidocaine 10 mg/mL (1 %) injection 1 mL 1 mL Intradermal Once PRN Carina Green CNP magnesium hydroxide (MOM) 400 mg/5 mL suspension 2,400 mg 30 mL Oral Daily PRN Venancio Quiros MD methylPREDNISolone sod suc(PF) (SOLU-medrol) 40 mg 40 mg Intravenous Q8H [facility] Venancio Quiros MD 40 mg at 07/08/20 [...] 4 mg 4 mg Intravenous Q6H PRN Vneancio Quiros MD perflutren lipid microspheres (DEFINITY) 0.143 [...] General Cardiology Inpatient Consult Heart & Vascular [facility] 07/08/2020 Memo Bernstein MD [facility] Patient: Carmen Gilman Date of : [...] EKG. Continue IV heparin at this time. [id number] is 2, consideration for long-term oral anticoagulation. 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 CT PE study is being [...] mg 0.5 mg Nebulization BID Jessenia Ferrer [facility],PharmD 0.5 mg at 07/08/20 0824 chlorhexidine (PERIDEX) 0.12 % solution 15 mL 15 mL Swab BID Venancio Quiros MD 15 mL at 07/08/20 0856 diltiazem (CARDIZEM) 125 mg in sodium chloride infusion 0-15 mg/hr Intravenous Continuous Venancio Quiros MD Stopped at 07/08/20 0753 famotidine (PEPCID) tablet 20 mg 20 mg Oral Q12H [facility] Venancio Quiros MD 20 mg at 07/08/20 0856 fentaNYL (SUBLIMAZE) injection 50-100 mcg 50-100 mcg Intravenous Q5 Min PRN Venancio Quiros MD 100 mcg at 07/08/20 0755 furosemide (LASIX) injection 40 mg 40 mg Intravenous Q12H [facility] Venancio Quiros MD 40 mg at 07/08/20 [...] (SOLU-medrol) 40 mg 40 mg Intravenous Q8H [facility] Venancio Quiros MD 40 mg at 07/08/20 [...] 0916 rocuronium (ZEMURON) injection Intravenous Code/Trauma/Sedation Med [place] Hannah Ignacio MD 50 mg at 07/08/20 0109 senna-docusate (SENNA-S) 8.6-50 mg per tablet 1 tablet 1 tablet Oral BID Venancio Quiros MD 1 tablet at 07/08/20 0856 sodium chloride (PF) (NS) flush 10 mL 10 mL Intracatheter Q8H [facility] Carina Green CNP sodium chloride (PF) (NS) [...] reporting he wished to speak to the social science instructor. Met with the patient bedside, he asks that this worker reach out to the apartment where he completed an application. VM left with apartment complex. Patient's phone charged for him. 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 D 01/08/2020 08:42 [id number] 01/08/2020 09:04 MCB/MODL Brief Post Operative Note Patient Name: Carmen Gilman : 1965 (54 y.o.) Date of Service: 01/08/2020 CSN: [id number] Procedure(s): Right Total Knee Replacement Robotic Pre-Operative Diagnoses: * Primary osteoarthritis of right knee [M17.11] Post-Operative Diagnoses: * Same as Pre-Op Diagnosis * Primary osteoarthritis of right knee [M17.11] Surgeon(s) and Role: * Sofía Dukes MD - Primary Anesthesiologist: Paulino Helton MD R DEVELOPER: Carolina Lai CRNA Interventional Radiologist: Marissa Gagnon RN Scrub Person: ST Laila [...] Implant Name Type Inv. Item Serial No. Utility Operator Lot No. LRB No. Used Action BASEPLATE SZ5 TIBIAL TRITANIUM TRIATHLON - [id number] BASEPLATE SZ5 TIBIAL TRITANIUM TRIATHLON JODI OR [id number] Right 1 Implanted INSERT SZ5-10 TIBIAL CR X3 TRIATHLON [id number] - [id number] INSERT SZ5-10 TIBIAL CR X3 TRIATHLON [id number] JODI OR [id number] Right 1 Implanted COMPONENT SZ5 FEM CR RT CEMENTLESS BEADED W/PA TRIATHLON - [id number] COMPONENT SZ5 FEM CR RT CEMENTLESS BEADED W/PA TRIATHLON JODI OR [id number] Right 1 Implanted PATELLA 35MM ASYMMETRIC METAL-BACKED TRITANIUM TRIATHLON - [id number] PATELLA 35MM ASYMMETRIC METAL-BACKED TRITANIUM TRIATHLON JODI [...] Outcome: Partially Met Problem: Restraint Use - Nonviolent/Qgx-Vfgu-Pbvdcruyqzg Behavior Goal: Absence of restraint indications 07/08/20201940 [...] with hypoxia and hypercapnia (HCC) 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 CT PE study is being ordered. Associated Problem(s): Acute congestive heart failure (HCC) I do not believe this was acute systolic or diastolic heart failure. Echo reviewed and noted. Associated Problem(s): Atrial fibrillation with rapid ventricular response (HCC) Now converted, will check EKG. Continue IV heparin at this time. [id number] is 2, consideration for long-term oral anticoagulation. Patient family contact numbers: Kassie Parks (dtr) Aliayh Gilman (sister) Calin Gilman (brother) Meri Gilman (mother) Focusing on patient safety and device maintenance during shift. POC initiated. [facility] Physician - Brief Progress Note PERMANENT 07/08/2020 01:50 [facility] CARMEN GILMAN Date of Service [...] with signage outside this patient's room. This home care and home health aides teacher performs hand hygiene and enters the patient [...] at that time. The patient presents to [facility] emergency room yesterday with severe shortness of [...] HH OASIS Star t of Care Discipline -Half-Way Problems Problem Start Date Status Goals Interventions Abnormal Findings Disciplines: Half-Way, Physical Therapy, Occupational Therapy, Speech Therapy, Home Health Aide, Medical Social Work, Spiritual Care, Art Therapy, Massage Therapy, Registered Dietitian, Student - Medical Social Work 01/09/2020 Active 1 goal linked to scheduled/documented intervention 1 goal intervention scheduled/documented in this visit Home Medication Management Disciplines: Half-Way 01/09/2020 Active 1 goal linked to scheduled/documented intervention 4 goal interventions scheduled/documented in this visit Learning/Teaching Needs - Joint Replacement Disciplines: Half-Way 01/09/2020 Active 1 goal linked to scheduled/documented intervention 6 goal interventions scheduled/documented in this visit Pain Management Disciplines: Half-Way 01/09/2020 Active 1 goal linked to scheduled/documented intervention 1 goal intervention scheduled/documented in this visit Risk of Falls Disciplines: Half-Way, Physical Therapy, Occupational Therapy, Speech Therapy, Home Health Aide, Medical Social Work, Spiritual Care, Art Therapy, Massage Therapy, Registered Dietitian, Student - Medical Social Work 01/09/2020 Active 1 goal linked to scheduled/documented intervention 1 goal intervention scheduled/documented in this visit Skilled Assessment Disciplines: Half-Way 01/09/2020 Active 1 goal linked to scheduled/documented [...] Problem:Skilled Assessment Goal:Rehospitalization joint replacement goal Scheduled SN/TUFTING MACHINE FIXER obtain vital signs Problem:Skilled Assessment Goal:Rehospitalization joint [...] scheduled/documented in this visit Abnormal Findings Disciplines: Half-Way, Physical Therapy, Occupational Therapy, Speech Therapy, Home [...] in this visit Risk of Falls Disciplines: Half-Way, Physical Therapy, Occupational Therapy, Speech Therapy, Home [...] risk goal Scheduled Visit Details Visit Type -HYDROPONICS WORKER HH Missed Vi sit Discipline -Half-Way Visit Details Visit Type -SN HH Routine Vi sit Discipline -Half-Way Interventions Intervention Associated Problem/Goal Status Variance Visit [...] Assessment Goal:Rehospitalizati on joint replacement goal Completed SN/TUFTING MACHINE FIXER obtain vital signs Problem:Skilled Assessment Goal:Rehospitalizati on joint replacement goal Completed Teaching - disease process Problem:Skilled Assessment Goal:Rehospitalizati on joint replacement goal Completed Visit Details Visit Type -SN HH PRN/On-Drea l Visit Discipline -Half-Way Visit Details Visit Type -FIRMWARE TEST ENGINEER Routine Visi t Discipline -Physical Therapy Goals [...] Pain Management Goal:Pain management education goal Completed FIRMWARE TEST ENGINEER educated pt. with pain management techniques such as icing, elevation, resting, stretching, and taking prescribed pain medication before or after activities to reduce pain and optimize daily physical functioning. Pt. able to exhibit a good understanding with the information provided by FIRMWARE 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 Report abnormal assessment to physician Problem:Abnormal Findings [...] Decreased Strength Goal:Strength PT Ortho goal Completed FIRMWARE TEST ENGINEER provided skilled prompting on correcting proper strengthening [...] Home Exercise Program Goal:HEP education goal Completed FIRMWARE TEST ENGINEER demonstrated, instructed, and provided pictorial cues of HEP exercises to improve independence and confidence. FIRMWARE TEST ENGINEER also educated pt. with the importance of performing HEP on a daily basis to increase strength and tolerance with ADLs and to improve therapy outcome. PT transfer training Problem:PT19- Decreased Transfer Ability Goal:Transfer goal Completed FIRMWARE TEST ENGINEER facilitated with verbal and tactile cues to [...] Ambulation Ability Goal:Ambulation PT Ortho goal Completed FIRMWARE TEST ENGINEER facilitated pt. with ambulation to improve confidence and independence with home mobility. Pt. able to ambulate in home for 60 ft. safely with FWW. Pt. stated increased right knee pain with ambulation. FIRMWARE TEST ENGINEER provided verbal cues to improve antalgic gait. Pt. instructed to decrease step length to improve step pattern from a step to pattern to a reciprocal gait pattern. Assess/Instruct in balance and fall prevention techniques Problem:PT24- Decreased Balance/Increased Fall Risk Goal:Balance/Fall risk PT Ortho goal Completed FIRMWARE TEST ENGINEER reviewed fall prevention strategies with pt. to avoid the risk of falls. Pt. complying by reporting no falls on this date. Instruct on fall prevention Problem:Risk of Falls Goal:Balance/Fall risk goal Completed FIRMWARE TEST ENGINEER reviewed environmental fall risk factors and the proper use of walking aids to improve good stability. FIRMWARE TEST ENGINEER also emphasized the importance of proper lighting/nightlight, proper footwear, make sure of a clutter free pathway, and to be aware of surrounding. Watch for trip hazards and uneven surfaces. Avoid walking when dizzy or weak. Patient demonstrated a good understanding. Visit Details Visit Type -HYDROPONICS WORKER Routine Discipline -Half-Way Interventions Intervention Associated Problem/Goal Status Variance Visit [...] Assessment Goal:Rehospitalizati on joint replacement goal Completed SN/TUFTING MACHINE FIXER obtain vital signs Problem:Skilled Assessment Goal:Rehospitalizati on joint replacement goal Completed Teaching - disease process Problem:Skilled Assessment Goal:Rehospitalizati on joint replacement goal Completed Visit Details Visit Type -FIRMWARE TEST ENGINEER Missed Visit Discipline -Physical Therapy Problems Problem Start Date Status Goals Interventions AP02- Decreased Knowledge of Pain Management Disciplines: Physical Therapy 01/09/2020 Active 1 goal linked to scheduled/documented intervention 1 goal intervention scheduled/documented in this visit Abnormal Findings Disciplines: Half-Way, Physical Therapy, Occupational Therapy, Speech Therapy, Home [...] in this visit Risk of Falls Disciplines: Half-Way, Physical Therapy, Occupational Therapy, Speech Therapy, Home [...] Pain Management Goal:Pain management education goal Completed FIRMWARE TEST ENGINEER reviewed pain management techniques with pt. to [...] Decreased ROM Goal:Range of motion goal Completed FIRMWARE TEST ENGINEER instructed pt. to perform heel slides and standing anterior mini lunges on 6 inch step to increase knee flexion by breaking up scar tissue. Pt. AROM (0-80 degrees) PT muscle re-education Problem:PT14- Decreased Strength Goal:Strength PT Ortho goal Completed FIRMWARE TEST ENGINEER provided skilled prompting on correcting proper strengthening [...] Home Exercise Program Goal:HEP education goal Completed FIRMWARE TEST ENGINEER reviewed HEP with emphasis on full joint ROM to improve strength, increase joint articulation to reduce muscle tightness with transfers. FIRMWARE TEST ENGINEER also educated pt. with the importance of performing HEP on a daily basis to increase strength and tolerance with ADLs and to improve therapy outcome. Pt. exhibited a good understanding and recall of HEP with pictorial cues. PT transfer training Problem:PT19- Decreased Transfer Ability Goal:Transfer goal Completed FIRMWARE TEST ENGINEER facilitated with verbal and tactile cues to [...] Ambulation Ability Goal:Ambulation PT Ortho goal Completed FIRMWARE TEST ENGINEER provided verbal cue to concentrate with heel to toe stepping and over flexing R knee during swing phase to increase knee ROM and step height. Pt. able to ambulate inside home and outside home with FWW with good stability and maneuverability. Assess/Instruct in balance and fall prevention techniques Problem:PT24- Decreased Balance/Increased Fall Risk Goal:Balance/Fall risk PT Ortho goal Completed FIRMWARE TEST ENGINEER reviewed fall prevention strategies with pt. to avoid the risk of falls. Pt. complying by reporting no falls on this date Instruct on fall prevention Problem:Risk of Falls Goal:Balance/Fall risk goal Completed FIRMWARE TEST ENGINEER assisted with verbal cues with 30 second [...] Assessment Goal:Rehospitalizati on joint replacement goal Completed SN/TUFTING MACHINE FIXER obtain vital signs Problem:Skilled Assessment Goal:Rehospitalizati on [...] scheduled/documented in this visit Abnormal Findings Disciplines: Half-Way, Physical Therapy, Occupational Therapy, Speech Therapy, Home [...] in this visit Risk of Falls Disciplines: Half-Way, Physical Therapy, Occupational Therapy, Speech Therapy, Home [...] scheduled/documented in this visit Abnormal Findings Disciplines: Half-Way, Physical Therapy, Occupational Therapy, Speech Therapy, Home [...] in this visit Risk of Falls Disciplines: Half-Way, Physical Therapy, Occupational Therapy, Speech Therapy, Home [...] Pain Management Goal:Pain management education goal Completed FIRMWARE TEST ENGINEER educated pt. with pain management techniques to reduce or manage pain. FIRMWARE TEST ENGINEER provided verbal and tactile cues for stretching right knee. FIRMWARE TEST ENGINEER emphasized the importance of ice, elevation, rest [...] Home Exercise Program Goal:HEP education goal Completed FIRMWARE TEST ENGINEER educated pt. with the importance of performing HEP on a daily basis to increase strength and tolerance with ADLs and to improve therapy outcome. Pt. exhibited a good understanding of HEP exercises. PT transfer training Problem:PT19- Decreased Transfer Ability Goal:Transfer goal Completed FIRMWARE TEST ENGINEER instructed pt. to perform STSs from different seated surface levels to promote confidence, strength, and independence with home mobility. Pt. demonstrates safe transfer abilities with good stability using UE support. Assess/Instruct in safe gait techniques in home. Problem:PT20- Decreased Ambulation Ability Goal:Ambulation PT Ortho goal Completed FIRMWARE TEST ENGINEER assisted pt. with ambulation by facilitating with verbal cues to step closer to rollator to correct posture, concentrate with increasing R knee flexion and heel strike with R foot during swing phase to improve stability. Pt. ambulated in home 60 ft. with FWW with good stability. FIRMWARE TEST ENGINEER provided skilled prompting with sequencing with cane and step pattern. Pt. able to perform with good stability and sequencing. Assess/Instruct in balance and fall prevention techniques Problem:PT24- Decreased Balance/Increased Fall Risk Goal:Balance/Fall risk PT Ortho goal Completed FIRMWARE TEST ENGINEER assisted with improving standing stability with verbal and tactile cues to widen AVA and to correct posture to get center of mass over their AVA. Pt. able to reach across midline without UE support with wide base but demonstrated instability with narrow stance. Instruct on fall prevention Problem:Risk of Falls Goal:Balance/Fall risk goal Completed FIRMWARE TEST ENGINEER educated pt. with fall prevention and balancing techniques to eliminate fall risk, lead pt. to safe transfers, and improve stability outside of home and in the community. Visit Details Visit Type -SN HH Non-OASIS/ Discipline DC Discipline -Half-Way Problems Problem Start Date Status Goals Interventions Abnormal Findings Disciplines: Half-Way, Physical Therapy, Occupational Therapy, Speech Therapy, Home Health Aide, Medical Social Work, Spiritual Care, Art Therapy, Massage Therapy, Registered Dietitian, Student - Medical Social Work 01/09/2020 Resolved on 01/25/2020 1 goal linked to scheduled/documente d intervention 1 goal intervention scheduled/documented in this visit Home Medication Management Disciplines: Half-Way 01/09/2020 Resolved on 01/25/2020 1 goal linked to scheduled/documente d intervention 4 goal interventions scheduled/documented in this visit Learning/Teaching Needs - Joint Replacement Disciplines: Half-Way 01/09/2020 Resolved on 01/25/2020 1 goal linked to scheduled/documente d intervention 6 goal interventions scheduled/documented in this visit Pain Management Disciplines: Half-Way 01/09/2020 Resolved on 01/25/2020 1 goal linked to scheduled/documente d intervention 1 goal intervention scheduled/documented in this visit Risk of Falls Disciplines: Half-Way, Physical Therapy, Occupational Therapy, Speech Therapy, Home Health Aide, Medical Social Work, Spiritual Care, Art Therapy, Massage Therapy, Registered Dietitian, Student - Medical Social Work 01/09/2020 Resolved on 01/25/2020 1 goal linked to scheduled/documente d intervention 1 goal intervention scheduled/documented in this visit Skilled Assessment Disciplines: Half-Way 01/09/2020 Resolved on 01/25/2020 1 goal linked [...] ER. Narratives Lying on air matress in [facility] room. Assessment done. alert and oriented. c/o pain in Rt knee rated at a 5/10. is taking pain medication. Is obese. is wanting a cane. this RN contacted Merry and she is going to send a script to [facility]. Dressing to Rt knee saturated from his [...] Last dose on Tue11/13/21 at 1800, At [facility], in emergencies, administer as rapidly as necessary [...] 1601 (Not Given - Provider: Indira Portillo, COMMISSION CLERK - Reason: Other - Comment: Due 7a [...] (COMPLETED) 2,328 mL (30 mL/kg 77.6 kg [place] weight), Intravenous, at 1,154.4 mL/hr, Once, On [...] Bryson Ibarra RN - Comment: Given by [employer] TECHNICIAN during wound care) ceFEPIme (MAXIPIME) 2 g [...] Discontinued 0837 (Given - Provider: Marcelina Orta, COMMISSION CLERK)193 (Given - Provider: Dee Bowen, COMMISSION CLERK) 0717 (Given - Provider: Deja Martin, COMMISSION CLERK)2012 (Not Given - Provider: Carlita Colvin RCP [...] Tania Kahn RN)1222 (Given - Provider: Tania Kanh RN)1542 (Given - Provider: Tania Kahn RN)2044 [...] Pain, Severe Pain 1424 (Given - Provider: Taina Kahn, RN)2043 (Given - Provider: Heaven Shannon, [...] Provider: Cate Collins RN)1400 (Given - Provider: Cate Collins RN) heparin (porcine) injection 5,000 Units [...] Reason: Patient/family refused)1630 (Not Given - Provider: Myraim Martínez LPN - Reason: Patient/family refused) 0730 [...] Kika Valle LPN) 2233 (Given - Provider: oRchelle Alexis RN) ondansetron (ZOFRAN) injection 4 mg(Linked [...] product is in a glass vial. In [employer] drug library, no longer in fluid library. [...] Tue10/16/24 at 2100 2131 (Hold - Provider: Rochelle Alexis RN - [...] 0011 1647 (Given - Provider: Lizzy Mc, COMMISSION CLERK) 0909 (Given - Provider: Heaven Luna, COMMISSION CLERK)2103 (Given - Provider: Neha Denney, JORGE) 0658 [...] Violeta Dillon RN)1200 (Not Given - Provider: Sally Pleitez RN - Reason: Patient/family refused)1800 (Not [...] 0604 1302 (Given - Provider: Elif Copeland, COMMISSION CLERK) ondansetron (ZOFRAN) injection 4 mg(Linked Group 3) [...] 6 hours PRN, nausea, vomiting, Starting on At[employer] 05/12/25 at 0604, [] Use oral route first, if tolerated. [] Use as first line antiemetic. Care Teams (unrecognized sec tion and content) Emergency Veterinary Technician Relationship Specialty Start Date End Date Ani Worley APRN-[employer] [address] [place] [address] PCP - General Certified Nurse Practitioner 03/30/21 Emergency Veterinary Technician Relationship Specialty Start Date End Date Ani Worley APRN-[employer] [address] [place] [address] PCP - General Certified Nurse Practitioner 03/30/21 Emergency Veterinary Technician Relationship Specialty Start Date End Date [facility]ir [facility] [address] [place] [address] PCP - General Certified Nurse Practitioner 03/30/21 Emergency Veterinary Technician Relationship Specialty Start Date End Date Ani Worley APRNRETURNED GOODS S[employer]TER [address] [place] [address] PCP - General Certified Nurse Practitioner 03/30/21 Emergency Veterinary Technician Relationship Specialty Start Date End Date Meir Ani [facility] [address] [place] [address] PCP - General Certified Nurse Practitioner 03/30/21 Emergency Veterinary Technician Relationship Specialty Start Date End Date [facility] [address] [place] [address] PCP - General Certified Nurse Practitioner 03/30/21 Emergency Veterinary Technician Relationship Specialty Start Date End Date Ani Worley [employer] [address] [address] PCP - General Family Medicine 06/03/21 Ani Worley [employer] [address] [facility] [address] [place] [address] Family Medicine 06/03/21 Prashanth Hercules MD [facility] Trang Castillo [address] [place] [address] Consulting Physician Addiction Medicine 10/02/21 Emergency Veterinary Technician Relationship Specialty Start Date End Date Ani Worley APRNRETURN[employer] [address] [place] [address] PCP - General Certified Nurse Practitioner 03/30/21 Emergency Veterinary Technician Relationship Specialty Start Date End Date Meir Ani ORAL AND MAXILLOFACIAL SURGERY-[employer] 175 [facility] [place] [address] PCP - General Certified Nurse Practitioner 03/30/21 Emergency Veterinary Technician Relationship Specialty Start Date End Date Meir Ani, ORAL AND MAXILLOFACIAL SURGERY-[employer] 175 [facility] [place] [address] PCP - General Certified Nurse Practitioner 03/30/21 Emergency Veterinary Technician Relationship Specialty Start Date End Date ThomAni donis ORAL AND MAXILLOFACIAL SURGERY-[employer] 175 [facility] [place] [address] PCP - General Certified Nurse Practitioner 03/30/21 Emergency Veterinary Technician Relationship Specialty Start Date End Date Meir Ani ORAL AND MAXILLOFACIAL SURGERY-[employer] 175 [facility] [place] [address] PCP - General Certified Nurse Practitioner 03/30/21 Emergency Veterinary Technician Relationship Specialty Start Date End Date ThmoMalik doniski ORAL AND MAXILLOFACIAL SURGERY-[employer] 175 [facility] [place] [address] PCP - General Certified Nurse Practitioner 03/30/21 Emergency Veterinary Technician Relationship Specialty Start Date End Date Meir Ani ORAL AND MAXILLOFACIAL SURGERY-[employer] 175 [facility] [place] [address] PCP - General Certified Nurse Practitioner 03/30/21 Emergency Veterinary Technician Relationship Specialty Start Date End Date Ani Worley ORAL AND MAXILLOFACIAL SURGERY-[employer] 175 [facility] [place] [address] PCP - General Certified Nurse Practitioner 03/30/21 Emergency Veterinary Technician Relationship Specialty Start Date End Date Ani Worley ORAL AND MAXILLOFACIAL SURGERY-[employer] 175 [facility] [place] [address] PCP - General Certified Nurse Practitioner 03/30/21 Emergency Veterinary Technician Relationship Specialty Start Date End Date Meir Ani ORAL AND MAXILLOFACIAL SURGERY-[employer] [address] [place] [address] PCP - General Certified Nurse Practitioner 03/30/21 Emergency Veterinary Technician Relationship Specialty Start Date End Date Ani Worley ORAL AND MAXILLOFACIAL SURGERY-[employer] [address] [place] [address] PCP - General Certified Nurse Practitioner 03/30/21 Emergency Veterinary Technician Relationship Specialty Start Date End Date Meir Ani ORAL AND MAXILLOFACIAL SURGERY-[employer] [address] [place] [address] PCP - General Certified Nurse Practitioner 03/30/21 Emergency Veterinary Technician Relationship Specialty Start Date End Date Ani Worley ORAL AND MAXILLOFACIAL SURGERY-[employer] [address] [place] [address] PCP - General Certified Nurse Practitioner 03/30/21 Emergency Veterinary Technician Relationship Specialty Start Date End Date Ani Worley ORAL AND MAXILLOFACIAL SURGERY-[employer] [address] [place] [address] PCP - General Certified Nurse Practitioner 03/30/21 Emergency Veterinary Technician Relationship Specialty Start Date End Date Ani Worley ORAL AND MAXILLOFACIAL SURGERY-[employer] [address] [place] [address] PCP - General Certified Nurse Practitioner 03/30/21 Emergency Veterinary Technician Relationship Specialty Start Date End Date Ani Worley ORAL AND MAXILLOFACIAL SURGERY-[employer] [address] [place] [address] PCP - General Certified Nurse Practitioner 03/30/21 Emergency Veterinary Technician Relationship Specialty Start Date End Date Ani Worley ORAL AND MAXILLOFACIAL SURGERY-[employer] [address] [place] [address] PCP - General Certified Nurse Practitioner 03/30/21 Emergency Veterinary Technician Relationship Specialty Start Date End Date Ani Worley APRNRODRIGUE 175 [place] [address] PCP - General Certified Nurse Practitioner 03/30/21 Emergency Veterinary Technician Relationship Specialty Start Date End Date Ani Worley APRNRETURNED [employer] [address] [place] [address] PCP - General Certified Nurse Practitioner 03/30/21 Emergency Veterinary Technician Relationship Specialty Start Date End Date Ani Worley APRN-RODRIGUE [address] [place] [address] PCP - General Certified Nurse Practitioner 03/30/21 Emergency Veterinary Technician Relationship Specialty Start Date End Date Ani Worley APRNRODRIGUE 175 [facility] [place] [address] PCP - General Certified Nurse Practitioner 03/30/21 Emergency Veterinary Technician Relationship Specialty Start Date End Date Ani Worley CNP 680 [facility] [address] [place] [address] PCP - General Family Medicine 06/03/21 Ani Worley CNP 680 [facility] [address] [place] [address] Family Medicine 06/03/21 Prashanth Hercules MD [facility] Trang Castillo [address] [place] [address] Consulting Physician Addiction Medicine 10/02/21 Emergency Veterinary Technician Relationship Specialty Start Date End Date Ani Worley APRN-[employer] 175 [facility] [place] [address] PCP - General Certified Nurse Practitioner 03/30/21 Emergency Veterinary Technician Relationship Specialty Start Date End Date Meir AniMARLENY figueroaN-[facility] 175 [facility] [place] [address] PCP - General Certified Nurse Practitioner 03/30/21 Emergency Veterinary Technician Relationship Specialty Start Date End Date Meir Ani ORAL AND MAXILLOFACIAL SURGERY-[employer] 175 [facility] [place] [address] PCP - General Certified Nurse Practitioner 03/30/21 Emergency Veterinary Technician Relationship Specialty Start Date End Date Meir SKYLER Isabel-[employer] [address] [place] [address] PCP - General Certified Nurse Practitioner 03/30/21 Emergency Veterinary Technician Relationship Specialty Start Date End Date Ani Worley CNP [address] [facility] [address] [place] [address] PCP - General Family Medicine 06/03/21 Ani Worley CNP [address] [facility] [address] [place] [address] Family Medicine 06/03/21 Prashanth Hercules MD [facility] Trang Castillo [address] [place] [address] Consulting Physician Addiction Medicine 10/02/21 Emergency Veterinary Technician Relationship Specialty Start Date End Date Ani Worley CNP [address] [facility] [address] [place] [address] PCP - General Family Medicine 06/03/21 Ani Worley [employer] [address] [place] [address] Family Medicine 06/03/21 Emergency Veterinary Technician Relationship Specialty Start Date End Date Ani Worley CNP [address] [place] [address] PCP - General Family Medicine 06/03/21 Ani Worley [employer] [address] [place] [address] Family Medicine 06/03/21 Emergency Veterinary Technician Relationship Specialty Start Date End Date Ani Worley [employer] [address] [place] [address] [place] [address] PCP - General Family Medicine 06/03/21 Ani Worley [employer] [address] [place] [address] [place] [address] Family Medicine 06/03/21 Emergency Veterinary Technician Relationship Specialty Start Date End Date Ani Worley CNP [address] [place] [address] [place] [address] PCP - General Family Medicine 06/03/21 Ani Worley [employer] [address] [place] [address] Family Medicine 06/03/21 Emergency Veterinary Technician Relationship Specialty Start Date End Date Ani Worley CNP [address] [place] [address] PCP - General Family Medicine 06/03/21 Ani Worley CNP [address] [place] [address] Family Medicine 06/03/21 Emergency Veterinary Technician Relationship Specialty Start Date End Date Ani Worley CNP [address] [place] [address] PCP - General Family Medicine 06/03/21 Ani Worley [employer] [address] [place] [address] Family Medicine 06/03/21 Emergency Veterinary Technician Relationship Specialty Start Date End Date Ani Worley CNP [address] [place] [address] PCP - General Family Medicine 06/03/21 Ani Worley [employer] [address] [place] [address] Family Medicine 06/03/21 Emergency Veterinary Technician Relationship Specialty Start Date End Date Ani Worley CNP [address] [place] [address] PCP - General Family Medicine 06/03/21 Ani Worley, [employer] [address] [place] [address] Family Medicine 06/03/21 Emergency Veterinary Technician Relationship Specialty Start Date End Date Ani Worley CNP [address] [place] [address] PCP - General Family Medicine 06/03/21 Ani Worley CNP [address] [place] [address] Family Medicine 06/03/21 Emergency Veterinary Technician Relationship Specialty Start Date End Date Ani Worley CNP [address] [place] [address] PCP - General Family Medicine 06/03/21 Ani Worley [employer] [address] [place] [address] Family Medicine 06/03/21 Emergency Veterinary Technician Relationship Specialty Start Date End Date Ani Worley CNP [address] [facility] [place] [address] [place] [address] PCP - General Family Medicine 06/03/21 Ani Worley [employer] [address] [place] [address] [place] [address] Family Medicine 06/03/21 Emergency Veterinary Technician Relationship Specialty Start Date End Date Ani Worley CNP [address] [facility] [place] [address] [place] [address] PCP - General Family Medicine 06/03/21 Ani Worley CNP [address] [place] [address] Family Medicine 06/03/21 Emergency Veterinary Technician Relationship Specialty Start Date End Date Ani Worley CNP [address] [place] [address] PCP - General Family Medicine 12/22/23 Ani Worley CNP [address] [facility] [address] [place] [address] Family Medicine 06/03/21 Ani Worley CNP [address] [facility] [address] [place] [address] Referring Physician Family Medicine 12/22/23 Emergency Veterinary Technician Relationship Specialty Start Date End Date Ani Worley CNP [address] [facility] [address] [place] [address] PCP - General Family Medicine 12/22/23 Ani Worley CNP 680 [facility] [address] [place] [address] Family Medicine 06/03/21 Ani Worley CNP [address] [facility] [address] [place] [address] Referring Physician Family Medicine 12/22/23 Emergency Veterinary Technician Relationship Specialty Start Date End Date Ani Worley CNP 680 [facility] [address] [place] [address] PCP - General Family Medicine 12/22/23 Ani Worley CNP [address] [facility] [address] [place] [address] Family Medicine 06/03/21 Ani Worley CNP [address] [facility] [address] [place] [address] Referring Physician Family Medicine 12/22/23 Emergency Veterinary Technician Relationship Specialty Start Date End Date Ani Worley CNP [address] [facility] [address] [place] [address] PCP - General Family Medicine 12/22/23 Ani Worley CNP [address] [place] [address] Family Medicine 06/03/21 Ani Worley CNP [address] [place] [address] Referring Physician Family Medicine 12/22/23 Emergency Veterinary Technician Relationship Specialty Start Date End Date Ani Worley CNP [address] [place] [address] [place] [address] PCP - General Family Medicine 12/22/23 Ani Worley CNP [address] [place] [address] [place] [address] Family Medicine 06/03/21 Ani Worley CNP [address] [place] [address] [place] [address] Referring Physician Family Medicine 12/22/23 Emergency Veterinary Technician Relationship Specialty Start Date End Date Ani Worley CNP [address] [place] [address] [place] [address] PCP - General Family Medicine 12/22/23 Ani Worley CNP [address] [place] [address] Family Medicine 06/03/21 Ani Worley CNP [address] [place] [address] Referring Physician Family Medicine 12/22/23 Emergency Veterinary Technician Relationship Specialty Start Date End Date Ani Worley CNP [address] [place] [address] PCP - General Family Medicine 12/22/23 Ani Worley CNP [address] [place] [address] Family Medicine 06/03/21 Ani Worley CNP [address] [place] [address] Referring Physician Family Medicine 12/22/23 Emergency Veterinary Technician Relationship Specialty Start Date End Date Ani Worley CNP [address] [place] [address] PCP - General Family Medicine 12/22/23 Ani Worley [employer] [address] [place] [address] Family Medicine 06/03/21 Ani Worley CNP [address] [place] [address] Referring Physician Family Medicine 12/22/23 Emergency Veterinary Technician Relationship Specialty Start Date End Date Ani Worley CNP [address] [place] [address] PCP - General Family Medicine 12/22/23 Ani Worley [employer] [address] [place] [address] Family Medicine 06/03/21 Ani Worley CNP [address] [place] [address] Referring Physician Family Medicine 12/22/23 Emergency Veterinary Technician Relationship Specialty Start Date End Date Ani Worley CNP [address] [place] [address] PCP - General Family Medicine 12/22/23 Ani Worley CNP [address] [place] [address] Family Medicine 06/03/21 Ani Worley CNP [address] [place] [address] [place] [address] Referring Physician Family Medicine 12/22/23 Emergency Veterinary Technician Relationship Specialty Start Date End Date Ani Worley CNP [address] [place] [address] [place] [address] PCP - General Family Medicine 12/22/23 Ani Worley CNP [address] [facility] [place] [address] [place] [address] Family Medicine 06/03/21 Ani Worley CNP [address] [facility] [place] [address] [place] [address] Referring Physician Family Medicine 12/22/23 Cecilia Gonzales DPM [address] [place] [address], [place] [address] Consulting Physician Podiatry 01/02/25 Emergency Veterinary Technician Relationship Specialty Start Date End Date Ani Worley CNP [address] [address] PCP - General Family Medicine 12/22/23 Ani Worley CNP [address] [address] Family Medicine 06/03/21 Ani Worley CNP [address] [address] Referring Physician Family Medicine 12/22/23 Cecilia Gonzales DPM [address] [place] [address] Consulting Physician Podiatry 01/02/25 Emergency Veterinary Technician Relationship Specialty Start Date End Date Ani Worley CNP [address] [address] PCP - General Family Medicine 12/22/23 Ani Worley CNP [address] [address] Family Medicine 06/03/21 Ani Worley CNP [address] [address] Referring Physician Family Medicine 12/22/23 Cecilia Gonzales DPM [address] [place] [address] Consulting Physician Podiatry 01/02/25 Emergency Veterinary Technician Relationship Specialty Start Date End Date Ani Worley CNP [address] [address] PCP - General Family Medicine 12/22/23 Ani Worley CNP [address] [facility] [address] [place] [address] Family Medicine 06/03/21 Ani Worley CNP [address] [facility] [address] [place] [address] Referring Physician Family Medicine 12/22/23 Cecilia Gonzales DPM [address] [place] [address] Consulting Physician Podiatry 01/02/25 Emergency Veterinary Technician Relationship Specialty Start Date End Date Ani Worley CNP [address] [address] PCP - General Family Medicine 12/22/23 Ani Worley CNP [address] [address] Family Medicine 06/03/21 Ani Worley CNP [address] [address] Referring Physician Family Medicine 12/22/23 Cecilia Gonzales DPM [address] [place] [address] Consulting Physician Podiatry 01/02/25 Emergency Veterinary Technician Relationship Specialty Start Date End Date Ani Worley CNP [address] [facility] [address] [place] [address] PCP - General Family Medicine 12/22/23 Ani Worley CNP [address] [facility] [address] [place], [place] [address] Family Medicine 06/03/21 Ani Worley CNP [address] [facility] [address] [place] [address] Referring Physician Family Medicine 12/22/23 Cecilia Gonzales DPM [address] [place] [address] Consulting Physician Podiatry 01/02/25 Emergency Veterinary Technician Relationship Specialty Start Date End Date Ani Worley CNP [address] [address] PCP - General Family Medicine 12/22/23 Ani Worley CNP [address] [address] Family Medicine 06/03/21 Ani Worley CNP [address] [address] Referring Physician Family Medicine 12/22/23 Cecilia Gonzales DPM [address] [place] [phone] Consulting Physician Podiatry 01/02/25 Emergency Veterinary Technician Relationship Specialty Start Date End Date Ani Worley CNP [address] [facility] [address] [place] [address] PCP - General Family Medicine 12/22/23 Ani Worley CNP [address] [facility] [address] [place] [address] Family Medicine 06/03/21 Ani Worley CNP [address] [facility] [address] [place] [address] Referring Physician Family Medicine 12/22/23 Cecilia Gonzales DPM [address] [place] [address] Consulting Physician Podiatry 01/02/25 Emergency Veterinary Technician Relationship Specialty Start Date End Date Ani Worley CNP [address] [facility] [address] [place] [address] PCP - General Family Medicine 12/22/23 Ani Worley CNP [address] [facility] [address] [place] [address] Family Medicine 06/03/21 Ani Worley CNP [address] [facility] [address] [place] [address] Referring Physician Family Medicine 12/22/23 Cecilia Gonzales DPM [address] [place] [address] Consulting Physician Podiatry 01/02/25 Emergency Veterinary Technician Relationship Specialty Start Date End Date Ani Worley CNP PCP - General Family Medicine 12/22/23 Ani Worley CNP Family Medicine 06/03/21 Ani Worley CNP Referring Physician Family Medicine 12/22/23 Cecilia Gonzales DPM [address] [place] [phone] Consulting Physician Podiatry 01/02/25 Emergency Veterinary Technician Relationship Specialty Start Date End Date Ani Worley CNP PCP - General Family Medicine 12/22/23 Ani Worley CNP Family Medicine 06/03/21 Ani Worley [employer] Referring Physician Family Medicine 12/22/23 Cecilia Gonzales DPM [address] [place] [phone] Consulting Physician Podiatry 01/02/25 Emergency Veterinary Technician Relationship Specialty Start Date End Date Ani Worley CNP [address] [facility] [place] [address] PCP - General Family Medicine 12/22/23 Ani Worley [employer] [address] [facility] [place] [address] Family Medicine 06/03/21 Ani Worley CNP [address] [place] [address] Referring Physician Family Medicine 12/22/23 Cecilia Gonzales DPM [address] [place], [place] [address] [address] Consulting Physician Podiatry 01/02/25 FOR RECORDS PERTAINING [...] BE BASED ON THE PRIMARY CLINICAL RECORDS. [employer] [facility]. provides no warranty or guarantee of the accuracy or completeness of information in this document.
[2025-07-29 08:40] LABS: Hematocrit 28.3 % (40-54); Hemoglobin 8.6 g/dL (13.0-16.5); Immature Granulocytes Count 0.010 X10^3/uL (0.0-0.0); Mean Corp Hgb Conc 30.4 g/dL (32-36); Mean Corpuscular Volume 68.5 fL (80-94); NRBC Flagged by Analyzer 0 % (0-5); POSITIVE COUNT YES; POSITIVE DIFFERENTIAL YES; Platelet Count 92 K/mm3 (150-450); RBC Distribution Width CV 18.2 % (11.6-14.6); RBC Distribution Width SD 44.2 fl (35.1-43.9); Red Blood Count 4.13 M/mm3 (4.6-6.2); White Blood Count 1.9 K/mm3 (4.4-11.0)
[2025-07-29 08:50] LABS: Differential Indicated SCAN CRITERIA MET
[2025-07-29 09:04] LABS: Ferritin 105 ng/mL (37-417); Iron Binding Capacity,Total 320 ug/dL (250-450)
[2025-07-29 09:19] LABS: CRP 6.04 mg/L (0.0-3.0); Iron 28 ug/dL (65-175); Iron Binding Capacity,Unsat 292 ug/dL (228-428)
== END ==
LOC: OLS.ACW100 05:00
PROVIDERS: Visit Provider Family Medicine
DX: K74.69 Other cirrhosis of liver (principal); J44.9 Chronic obstructive pulmonary disease, unspecified; B19.20 Unspecified viral hepatitis C without hepatic coma; R18.8 Other ascites; E11.9 Type 2 diabetes mellitus without complications
CPT/HCPCS: 36415; 82728; 83540; 83550; 85025; 86140

== ENCOUNTER → 2025-08-01 | Outpatient (REF) | payer MEDICARE, SELFPAY ==
--- OUTSIDE RECORDS SUMMARY | 2025-08-01 03:49 | XMS RPT_ITS | CCD ---
Author Organization [facility] Care Team Providers Care Revenue Enforcement Collection Agent Name Role Phone Norman Baldwin Unavailable [phone] Brar, Memo E Unavailable Unavailable Brar, Memo E Unavailable Unavailable Brar, Memo E Unavailable Unavailable Brar, Memo E Unavailable Unavailable Exten, Sb L. Unavailable Unavailable Exten, Sb L. Unavailable Unavailable Exten, Sb L. Unavailable Unavailable Exten, Sb L. Unavailable Unavailable Brar, Memo E Unavailable Unavailable Brar, Memo E Unavailable Unavailable Exten, Sb L. Unavailable Unavailable Exten, Sb L. Unavailable Unavailable Radford, Riaz S Unavailable Unavailable Radford, Riaz S Unavailable Unavailable Brar, Memo E [...] Care Provider Palmer Givens Primary Care Provider [phone] [place], Mari Anali. Primary Care Provider SECOR, MARI Anali Primary Care Unavailable PRASHANTH ARMENTA Attending Unavailable SECOR, MARI Anali Primary Care Unavailable ANYA GIVENS Attending Unavailable SECOR, MARI Briones Primary Care Unavailable GHAZARIAN, TEQUILA Admitting Unavailable GHBLOSSOMARIAN TEQUILA Attending Unavailable [place], Mari Anali. Primary Care Provider [phone] [place], Mari Anali Primary Care Provider [place], Mari Anali. Primary Care Provider Sofía Dukes Unavailable SOFAÍ DUKES Referring Unavailab le SECMARY, MARI Anali. Primary Care Unavailable UMBERTO BARNETT Attending Unavailable SECOR, MARI Cary Primary Care Unavailable [place], Mari Anali. Primary Care Provider [phone] [place], Mari Anali. Primary Care Provider [place], Mari Anali. Primary Care Provider VENANCIO QUIROS Consulting Unavailab le SECMARY, MARI Anali. Primary Care Unavailable VENANCIO QUIROS Admitting Unavailab le [facility] Attending Un available RACHELLE PRINCE Consulting Unavaila LIZ Tiwari Consulting Unavailable MAYUR HERNANDEZ Consulting Unavailable Sofía Dukes Unavailable [place], Mari Luis Daniel Unavailable Unavailable Primary Care Provider UnavailDIEGO Pena Attending Unavailable Ani Worley CNP Primary Care Provider MATEO, BLANCA PINEDA Admitting Unavaila ble [facility] Consulting Susi glasgow [facility] Attending ANI Greene Primary Care Unavailable PRASHANTH HERCULES Consulting Unavailable RACHELLE PRINCE Consulting Unavaila YOLY Ruiz Consulting Unavaila phoebe Worley APRN-Ani HUSAIN Primary Care Provider Ani Worley CNP Primary Care Provider [place] PROCESS CAMERA OPERATOR, Ani M Unavailable Prashanth Hercules MD Unavailable ZHAO ABRAHAM Attending Unavailable [place] DRAFTER AUTOMOTIVE DESIGN LAYOUT-PROCESS CAMERA OPERATOR, Ani Primary Care Provider [phone] [place] [employer] DES[employer] LAYOUT-PROCESS CAMERA OPERATOR, Ani Primary Care Provider [phone] [place] [facility], Ani Primary Care Provider [place] PROCESS CAMERA OPERATOR, Ani M Unavailable Prashanth Hercules MD Unavailable [phone] DELANY, ANI Primary Care Unavailable SELF, SELF [...] Referring Unavailable KRISTI BRYAN Attending Unavailable [place], [facility] Primary Care Unavailable RAMON, BRIDGET Attending Unavailable RAMON, BRIDGET Referring Unavailable DEL[place], [facility] Primary Care Unavailable RAMON, BRIDGET Attending Unavailable [...] Referring Unavailable HAY, AMI Attending Unavailable DEL[place], [facility] Primary Care Unavailable JACKELIN, NATHAN F Referring Unavailable RAMON, BRIDGET Attending Unavailable DELANY, ANI Primary Care Unavailable SELF, SELF Referring Unavailable HAY, AMI Attending Unavailable DELANY, ANI Primary Care Unavailable SELF, SELF Referring Unavailable HAY, AMI Attending Unavailable DELANY, ANI Primary Care Unavailable SELF, SELF Referring Unavailable HAY, AMI Attending Unavailable [place] Ani HUSAIN Primary Care Provider Ani Worley CNP Unavailable HAY, AMI L Attending Unavailable DELANY, [...] Unavailable DELANY, ANI Primary Care Unavailable [place] PROCESS CAMERA OPERATOR, Ani M Primary Care Provider [place] PROCESS CAMERA OPERATOR, Ani M Unavailable DELANY, ANI M Referring [...] Attending Unavailable Cecilia Gonzales DPM Sabry Unavailable [phone] Janet SHI Cecilia Sabry Unavailable TAWANDA OMRGAN Attending Unavailable DELANY, ANI M Primary Care Unavailable JACKSON AVITIA Attending Unavailab le THOMANY, ANI M Primary Care Unavailable [place] RODRIGUE, Ani M Primary Care Provider [place] PROCESS CAMERA OPERATOR, Ani M Unavailable [phone] [place] PROCESS CAMERA OPERATOR, Ani M Unavailable [place] PROCESS CAMERA OPERATOR, Ani M Primary Care Provider [place] PROCESS CAMERA OPERATOR, Ani M Unavailable [phone] [place] PROCESS CAMERA OPERATOR, Ani M Unavailable DELANY, ANI M Primary [...] Primary Care Unavailable DURAIRAJ, KRYS Admitting Unavailable LOEBARDO, ANVITA Referring Unavailable LEOBARDO, ANVITA Attending Unavailable MEIR, ANI M Primary Care Unavailable JANET, CECILIA SABRY Admitting Unavailable JANET, CECILIA MAYFIELDRY Attending Unavailable JANET, CECLIIA SABRY Admitting Unavailable JANET, CECILIA MAYFIELDRY Attending Unavailable MEIR, ANI Burton Primary Care Unavailable CAMERON VARGAS Attending Unavailable [facility] Consulting Unavai pee WORLEY, ANI Burton Primary Care Unavailable ARBEN PARRISH Admitting Unavailable ACOSTA VALLEJO Admitting Unavailable SOFÍA DUKES Consulting Unavailab le MEIR, ANI Burton Primary Care Unavailable ARBEN PARRISH Attending Unavailable KINZA GARRETT Consulting Unavaila ble PRASHANTH HERCULES Consulting Unavailable REMA GENTILE Consulting Unavailable [facility] Consulting UnaKANCHAN Correia Attending Unavailable MEIR, ANI M Primary Care Unavailable SHANAE NUNEZ Admitting Unavailable MEIR, ANI M Primary Care Unavailable PRASHANTH HERCULES Consulting Unavailable STEPHENIRAJ, KRYS Admitting Unavailable LUPE PARRISH Attending Unavailable CAROLYN CASIANO Attending UnavailSOFÍA Mahan Consulting Unavailab le MEIR, ANI M Primary Care Unavailable CARMEN CHARLES Admitting Unavai lable [facility] Consulting SOFÍA Wilcox Attending Unavailab [...] Naloxone; Translations: [NALOXONE] Drug Allergy 05-09-2025 Unknown [facility] Medications Current Medications Medication Drug [...] Tablet Sublingual Sublingual 2.5 TABS DAILY-ICD10 CODE [id number] TO NALOXONE. 03/28/2024 8:00:00 05/18/2024 7:48:00 Aborted Start: 02-22-2024 End: 03-27-2024 Buprenorphine HCl Sublingual Tablet Sublingual 8 MG 2 tablet Tablet Sublingual Sublingual 2.5 TABS DAILY-ICD10 CODE [id number] TO NALOXONE. 02/22/2024 8:00:00 03/27/2024 9:35:00 Aborted [...] Start: 06-09-2023 naloxone (NARC AN) 4 mg/actuation Orwell Administer 1 spray into one nostril for known or suspected opioid overdose. If patient worsens or does not respond, may repeat in 2-3 minutes. . 2 each 1 06/09/2023 Active Start: 06-09-2023 Start: 11-12-2021 End: 11-12-2021 naloxone (NARCAN) injection 0.4 mg naloxone (NARCAN) 4 mg/actua tion Orwell (20 sources) Start: 05-16-2025 naloxone (NARC AN) 4 mg/actuation Orwell Administer 1 spray into one nostril for known or suspected opioid overdose. If patient worsens or does not respond, may repeat in 2-3 minutes. . 2 each 05/16/2025 Active Start: 05-16-2025 naloxone (NARC AN) 4 mg/actuation Orwell Administer 1 spray into one nostril for known or suspected opioid overdose. If patient worsens or does not respond, may repeat in 2-3 minutes. . 2 each 05/16/2025 Start: 06-09-2023 naloxone (NARC AN) 4 mg/actuation Orwell Administer 1 spray into one nostril for known or suspected opioid overdose. If patient worsens or does not respond, may repeat in 2-3 minutes. . 2 each 1 06/09/2023 Suspended Start: 06-09-2023 naloxone (NARC AN) 4 mg/actuation Orwell Administer 1 spray into one nostril for known or suspected opioid overdose. If patient worsens or does not respond, may repeat in 2-3 minutes. . 2 each 1 06/09/2023 Active Start: 06-09-2023 naloxone (NARC AN) 4 mg/actuation Orwell Administer 1 spray into one nostril for [...] tablet 1 tablet 20 ml albumin human, long term 250 mg/ml injection (3 sources) Human Serum Albumin Start: 10-22-2024 End: 10-22-2024 25 g, Intravenous, Administer over 30 Minutes, Every 30 min, First dose on Tue10/22/24 at 1345, For 2 doses, Infuse 25 grams albumin over 30 minutes X2 bottles for total of 50 gm over 1 hour Infuse with vented tubing if product is in a glass vial. In [employer] drug library, no longer in fluid library. Start: 11-12-2021 End: 11-13-2021 albumin human 25 % injection 50 g [id number] 200 actuat albuter ol 0.09 mg/actuat metered [...] weekly for 3 weeks. Follow-up with the PROCESS CAMERA OPERATOR weekly And Dr. Garrett in 3 weeks. [...] CHEW. Start: 05-28-2024 take 1 capsule by [facility] every twenty-four hours as needed for constipation Colace Oral Capsule 100 MG 1 capsule Capsule Oral Give 1 capsule by mouth every 24 hours as needed for constipation 05/28/2024 23:00:00 Start: 03-16-2023 End: 03-22-2023 Docusate (COLACE) capsule 10 0 mg docusate sodium 50 mg / sennosides, long term 8.6 mg oral tablet (5 sources) Start: [...] Start: 02-08-2023 take 1 capsule by mo [facility] four times daily Gabapentin 300 MG [...] over 3 days patch 1 patch sennosides, long term 8.6 mg oral tablet (1 source) Start: 07-02-2024 End: 07-05-2024 simethicone 80 mg chewable tablet (19 sources) Start: 07-02-2024 End: 07-05-2024 take 1 tablet by mouth every six hours as needed Start: 10-10-2023 take 1 capsule by mo [facility] every six hours as needed Simethicone [...] DIFFERENTIALon 07-04-2025 AUTO NRBC 0.0 % Normal [facility] Comment on above: Performed By: #### L [id number] #### LAB [address] [address] Jack Mendoza M.D. [id number] AUTO NRBC ABS COUNT 0.00 K/mcL Normal 0.00-0.00 [facility] Comment on above: Performed By: #### L [id number] #### LAB [address] [address] Jack Mendoza M.D. [id number] BASOPHILS ABSOLUTE COUNT 0.01 K/mcL Normal 0.00-0.30 [facility] Comment on above: Performed By: #### L [id number] #### LAB [address] [place] [address] Jack Mendoza M.D. [id number] Basophils/100 WBC (Bld) 0.3 % Normal [facility] Comment on above: Performed By: #### L [id number] #### LAB [address] [place] [address] Jack Mendoza M.D. [id number] Eosinophils (Bld) [#/Vol] 0.04 10*3/uL Normal 0.00-0.50 [facility] Comment on above: Performed By: #### L [id number] #### LAB [address] [place] [address] Jack Mendoza M.D. [id number] Eosinophils/100 WBC (Bld) 1.2 % Normal [facility] Comment on above: Performed By: #### L [id number] #### LAB [address] [place] [address] Jack Mendoza M.D. [id number] Erythrocyte distribution width (RBC) [Ratio] 17.8 % High 11.6-14.8 [facility] Comment on above: Performed By: #### L [id number] #### LAB [address] [place], [place] [address] Jack Mendoza M.D. [id number] Hematocrit (Bld) [Volume fraction] 28.0 % Low 41.0-53.0 [facility] Comment on above: Performed By: #### L [id number] #### LAB [address] [address] Jack Mendoza M.D. [id number] Hemoglobin (Bld) [Mass/Vol] 8.4 g/dL Low 13.5-17.5 [facility] Comment on above: Performed By: #### L [id number] ####[facility] LAB [address] [address] Jack Mendoza M.D. [id number] IG ABSOLUTE 0.01 K/mcL Normal 0.00-0.30 [facility] Comment on above: Performed By: #### L [id number] #### LAB [address] [address] Jack Mendoza M.D. [id number] IG PERCENT 0.30 % [facility] Comment on above: Result Comment: The IG parameter is the percentage of metamyelocytes, myelocytes and promyelocytes. An immature granulocyte count (IG) of 1% or more suggests the possibility of infection, an IG count of 3% is very likely related to an infection. Performed By: #### L [id number] #### LAB [address] [address] Jack Mendoza M.D. [id number] Lymphocytes (Bld) [#/Vol] 0.77 10*3/uL Low 0.90-4.00 [facility] Comment on above: Performed By: #### L [id number] #### LAB [address] [address] Jack Mendoza M.D. [id number] Lymphocytes/100 WBC (Bld) 23.2 % [facility] Comment on above: Performed By: #### L [id number] #### LAB [address] [address] Jack Mendoza M.D. [id number] MCH (RBC) [Entitic mass] 20.6 pg Low 26.0-34.0 [facility] Comment on above: Performed By: #### L [id number] #### LAB [address] [address] Jack Mendoza M.D. [id number] MCV (RBC) [Entitic vol] 68.6 fL Low 80.0-100.0 [facility] Comment on above: Performed By: #### L [id number] ####[facility] LAB [address] [address] Jack Mendoza M.D. [id number] MEAN CORPUSCULAR HEMOGLOBIN CONC 30.0 g/dL Low 31.0-37.0 [facility] Comment on above: Performed By: #### L [id number] #### LAB [address] [address] Jack Mendoza M.D. [id number] Monocytes (Bld) [#/Vol] 0.39 10*3/uL Normal 0.30-0.90 [facility] Comment on above: Performed By: #### L [id number] #### LAB [address] [address] Jack Mendoza M.D. [id number] Monocytes/100 WBC (Bld) 11.7 % Normal [facility] Comment on above: Performed By: #### L [id number] #### LAB [address] [address] Jack Mendoza M.D. [id number] NEUTROPHILS ABSOLUTE COUNT 2.10 K/mcL Normal 1.70-7.00 [facility] Comment on above: Performed By: #### L [id number] #### LAB [address] [address] Jack Mendoza M.D. [id number] Neutrophils/100 WBC (Bld) 63.3 % Normal [facility] Comment on above: Performed By: #### L [id number] #### LAB [address] [address] Jack Mendoza M.D. [id number] Platelets (Bld) [#/Vol] 89 10*3/uL Low 150-400 [facility] Comment on above: Performed By: #### L [id number] #### LAB [address] [address] Jack Mendoza M.D. [id number] RBC (Bld) [#/Vol] 4.08 10*6/uL Low 4.50-5.90 [facility] Comment on above: Performed By: #### L [id number] #### LAB [address] [address] Jack Mendoza M.D. [id number] WBC (Bld) [#/Vol] 3.32 10*3/uL Low 4.50-11.00 [facility] Comment on above: Performed By: #### L [id number] #### LAB [address] [address] Jack Mendoza M.D. [id number] HEPATIC FUNCTION PANELon ALP [Catalytic activity/Vol] 61 U/L Normal 40-150 [facility] Comment on above: Performed By: #### 4 5866 #### LAB [address] [address] Jack Mendoza M.D. [id number] ALT [Catalytic activity/Vol] 11 U/L Normal 0-50 U/L [facility] Comment on above: Performed By: #### 4 5866 #### LAB [address] [address] Jack Mendoza M.D. [id number] AST [Catalytic activity/Vol] 21 U/L Normal 0-50 U/L [facility] Comment on above: Performed By: #### 4 5866 ####[facility] LAB [address] [address] Jack Mendoza M.D. [id number] Bilirubin [Mass/Vol] 0.6 mg/dL Normal 0.0-1.3 [facility] Comment on above: Performed By: #### 4 5866 ####[facility] LAB [address] [id number] Jack Mendoza M.D. [id number] Bilirubin.indirect [Mass/Vol] 0.3 mg/dL Normal 0.0-0.4 [facility] Comment on above: Performed By: #### 4 5866 #### LAB [address] [address] Jack Mendoza M.D. [id number] Protein [Mass/Vol] 6.3 g/dL Normal 6.0-8.0 [facility] Comment on above: Performed By: #### 4 5866 #### LAB [address] [id number] Jack Mendoza M.D. [id number] MAGNESIUM LEVELon 07-04-2025 Magnesium [Mass/Vol] 1.8 mg/dL Normal 1.6-2.4 [facility] Comment on above: Performed By: #### 4 6109 #### LAB [address] [address] Jack Mendoza M.D. [id number] RENAL FUNCTION PANELon 07-04 Albumin [Mass/Vol] 2.9 g/dL Low 3.2-5.2 [facility] Comment on above: Order Comment: [facility] has implemented the eGFR calculation approach that does not have a coefficient for race that conforms to the NKF-ASN Task Force Recommendations. Performed By: #### 4 6449 #### LAB [address] [address] Jack Mendoza M.D. [id number] Performed By: #### 4 5866 #### LAB [address] [id number] Jack Mendoza M.D. [id number] Anion gap [Moles/Vol] 10 mmol/L Normal 10-20 [facility] Comment on above: Order Comment: [facility] has implemented the eGFR calculation approach that does not have a coefficient for race that conforms to the NKF-ASN Task Force Recommendations. Performed By: #### 4 6449 ####[facility] LAB [address] [place], [place] [address] Jack Mendoza M.D. [id number] Calcium [Mass/Vol] 8.2 mg/dL Low 8.4-10.2 [facility] Comment on above: Order Comment: [facility] has implemented the eGFR calculation approach that does not have a coefficient for race that conforms to the NKF-ASN Task Force Recommendations. Performed By: #### 4 6449 #### LAB [address] [address] Jack Mendoza M.D. [id number] Chloride [Moles/Vol] 93 mmol/L Low 98-108 [facility] Comment on above: Order Comment: [facility] has implemented the eGFR calculation approach that does not have a coefficient for race that conforms to the NKF-ASN Task Force Recommendations. Performed By: #### 4 6449 #### LAB [address] [address] Jack Mendoza M.D. [id number] Creatinine [Mass/Vol] 0.53 mg/dL Normal 0.50-1.30 [facility] Comment on above: Order Comment: [facility] has implemented the eGFR calculation approach that does not have a coefficient for race that conforms to the NKF-ASN Task Force Recommendations. Performed By: #### 4 6449 #### LAB [address] [address] Jack Mendoza M.D. [id number] EGFR 116 mL/min/1.73 m2 Normal >=60 [facility] Comment on above: Order Comment: [facility] has implemented the eGFR calculation approach that does not have a coefficient for race that conforms to the NKF-ASN Task Force Recommendations. Result Comment: Ashley mated GFR was calculated using the 2020 CKD-EPI creatinine equation. Performed By: #### 4 6449 #### LAB [address] [address] Jack Mendoza M.D. [id number] Glucose [Mass/Vol] 116 mg/dL High 65-99 [facility] Comment on above: Order Comment: [facility] has implemented the eGFR calculation approach that does not have a coefficient for race that conforms to the NKF-ASN Task Force Recommendations. Performed By: #### 4 6449 #### LAB [address] [address] Jack Mendoza M.D. [id number] HCO3 (Bld) [Moles/Vol] 35 mmol/L High 21-32 [facility] Comment on above: Order Comment: [facility] has implemented the eGFR calculation approach that does not have a coefficient for race that conforms to the NKF-ASN Task Force Recommendations. Performed By: #### 4 6449 #### LAB [address] [address] Jack Mendoza M.D. [id number] Phosphate [Mass/Vol] 3.1 mg/dL Normal 2.7-4.5 [facility] Comment on above: Order Comment: [facility] has implemented the eGFR calculation approach that does not have a coefficient for race that conforms to the NKF-ASN Task Force Recommendations. Performed By: #### 4 6449 #### LAB [address] [address] Jack Mendoza M.D. [id number] Potassium [Moles/Vol] 3.9 mmol/L Normal 3.5-5.1 [facility] Comment on above: Order Comment: [facility] has implemented the eGFR calculation approach that does not have a coefficient for race that conforms to the NKF-ASN Task Force Recommendations. Performed By: #### 4 6449 #### LAB [address] [address] Jack Mendoza M.D. [id number] Sodium [Moles/Vol] 134 mmol/L Low 135-145 [facility] Comment on above: Order Comment: [facility] has implemented the eGFR calculation approach that does not have a coefficient for race that conforms to the NKF-ASN Task Force Recommendations. Performed By: #### 4 6449 #### LAB [address] [address] Jack Mendoza M.D. [id number] Urea nitrogen [Mass/Vol] 22 mg/dL Normal 8-25 [facility] Comment on above: Order Comment: [facility] has implemented the eGFR calculation approach that does not have a coefficient for race that conforms to the NKF-ASN Task Force Recommendations. Performed By: #### 4 6449 ####[facility] LAB [address] [address] Jack Mendoza M.D. [id number] Urea nitrogen/Creatinine [Mass ratio] 41.5 mg/mg High 10.0-20.0 [facility] Comment on above: Order Comment: [facility] has implemented the eGFR calculation approach that does not have a coefficient for race that conforms to the NKF-ASN Task Force Recommendations. Performed By: #### 4 6449 ####[facility] LAB [address] [address] Jack Mendoza M.D. [id number] CBC WITH AUTO DIFFERENTIALon 07-03-2025 AUTO NRBC 0.0 % [facility] Comment on above: Performed By: #### L [id number] ####[facility] LAB [address] [address] Jack Mendoza M.D. [id number] AUTO NRBC ABS COUNT 0.00 K/mcL Normal 0.00-0.00 [facility] Comment on above: Performed By: #### L [id number] ####[facility] LAB [address] [address] Jack Mendoza M.D. [id number] BASOPHILS ABSOLUTE COUNT 0.00 K/mcL Normal 0.00-0.30 [facility] Comment on above: Performed By: #### L [id number] ####[facility] LAB [address] [address] Jack Mendoza M.D. [id number] Basophils/100 WBC (Bld) 0.0 % [facility] Comment on above: Performed By: #### L [id number] ####[facility] LAB [address] [address] Jack Mendoza M.D. [id number] Eosinophils (Bld) [#/Vol] 0.02 10*3/uL Normal 0.00-0.50 [facility] Comment on above: Performed By: #### L [id number] #### LAB [address] [address] Jack Mendoza M.D. [id number] Eosinophils/100 WBC (Bld) 0.4 % Normal [facility] Comment on above: Performed By: #### L [id number] ####[facility] LAB [address] [address] Jack Mendoza M.D. [id number] Erythrocyte distribution width (RBC) [Ratio] 18.1 % High 11.6-14.8 [facility] Comment on above: Performed By: #### L [id number] #### LAB [address] [address] Jack Mendoza M.D. [id number] Hematocrit (Bld) [Volume fraction] 30.9 % Low 41.0-53.0 [facility] Comment on above: Performed By: #### L [id number] #### LAB [address] [address] Jack Mendoza M.D. [id number] Hemoglobin (Bld) [Mass/Vol] 9.4 g/dL Low 13.5-17.5 [facility] Comment on above: Performed By: #### L [id number] #### LAB [address] [address] Jack Mendoza M.D. [id number] IG ABSOLUTE 0.03 K/mcL Normal 0.00-0.30 [facility] Comment on above: Performed By: #### L [id number] #### LAB [address] [address] Jack Mendoza M.D. [id number] IG PERCENT 0.60 % Normal [facility] Comment on above: Result Comment: The IG parameter is the percentage of metamyelocytes, myelocytes and promyelocytes. An immature granulocyte count (IG) of 1% or more suggests the possibility of infection, an IG count of 3% is very likely related to an infection. Performed By: #### L [id number] #### LAB [address] [place] [address] Jack Mendoza M.D. [id number] Lymphocytes (Bld) [#/Vol] 0.99 10*3/uL Normal 0.90-4.00 [facility] Comment on above: Performed By: #### L [id number] #### LAB [address] [address] Jack Mendoza M.D. [id number] Lymphocytes/100 WBC (Bld) 19.4 % Normal [facility] Comment on above: Performed By: #### L [id number] #### LAB [address] [place] [address] Jack Mendoza M.D. [id number] MCH (RBC) [Entitic mass] 20.9 pg Low 26.0-34.0 [facility] Comment on above: Performed By: #### L [id number] #### LAB [address] [place] [address] Jack Mendoza M.D. [id number] MCV (RBC) [Entitic vol] 68.8 fL Low 80.0-100.0 [facility] Comment on above: Performed By: #### L [id number] #### LAB [address] [place] [address] Jack Mendoza M.D. [id number] MEAN CORPUSCULAR HEMOGLOBIN CONC 30.4 g/dL Low 31.0-37.0 [facility] Comment on above: Performed By: #### L [id number] ####[facility] LAB [address] [place] [address] Jack Mendoza M.D. [id number] Monocytes (Bld) [#/Vol] 0.72 10*3/uL Normal 0.30-0.90 [facility] Comment on above: Performed By: #### L [id number] #### LAB [address] [place] [address] Jack Mendoza M.D. [id number] Monocytes/100 WBC (Bld) 14.1 % Normal [facility] Comment on above: Performed By: #### L [id number] #### LAB [address] [address] Jack Mendoza M.D. [id number] NEUTROPHILS ABSOLUTE COUNT 3.35 K/mcL Normal 1.70-7.00 [facility] Comment on above: Performed By: #### L [id number] #### LAB [address] [address] Jack Mendoza M.D. [id number] Neutrophils/100 WBC (Bld) 65.5 % Normal [facility] Comment on above: Performed By: #### L [id number] #### LAB [address] [address] Jack Mendoza M.D. [id number] Platelets (Bld) [#/Vol] 116 10*3/uL Low 150-400 [facility] Comment on above: Performed By: #### L [id number] #### LAB [address] [address] Jack Mendoza M.D. [id number] RBC (Bld) [#/Vol] 4.49 10*6/uL Low 4.50-5.90 [facility] Comment on above: Performed By: #### L [id number] #### LAB [address] [address] Jack Mendoza M.D. [id number] WBC (Bld) [#/Vol] 5.11 10*3/uL Normal 4.50-11.00 [facility] Comment on above: Performed By: #### L [id number] #### LAB [address] [address] Jack Mendoza M.D. [id number] HEPATIC FUNCTION PANELon ALP [Catalytic activity/Vol] 65 U/L Normal 40-150 [facility] Comment on above: Performed By: #### 4 5866 #### LAB [address] [id number] Jack Mendoza M.D. [id number] ALT [Catalytic activity/Vol] 11 U/L Normal 0-50 U/L [facility] Comment on above: Performed By: #### 4 5866 #### LAB [address] [id number] Jack Mendoza M.D. [id number] AST [Catalytic activity/Vol] 21 U/L Normal 0-50 U/L [facility] Comment on above: Performed By: #### 4 5866 #### LAB [address] [id number] Jack Mendoza M.D. [id number] Bilirubin [Mass/Vol] 0.7 mg/dL Normal 0.0-1.3 [facility] Comment on above: Performed By: #### 4 5866 #### LAB [address] [address] Jack Mendoza M.D. [id number] Bilirubin.indirect [Mass/Vol] 0.3 mg/dL Normal 0.0-0.4 [facility] Comment on above: Performed By: #### 4 5866 #### LAB [address] [address] Jack Mendoza M.D. [id number] Protein [Mass/Vol] 6.5 g/dL Normal 6.0-8.0 [facility] Comment on above: Performed By: #### 4 5866 #### LAB [address] [id number] Jack Mendoza M.D. [id number] MAGNESIUM LEVELon 07-03-2025 Magnesium [Mass/Vol] 2.1 mg/dL Normal 1.6-2.4 [facility] Comment on above: Performed By: #### 4 6109 #### LAB [address] [id number] Jack Mendoza M.D. [id number] POC GLUCOSE - [facility] 025 Glucose [Mass/Vol] 156 mg/dL High 65-99 [facility] Glucose [Mass/Vol] 138 mg/dL High 65-99 [facility] PT/INRon 07-03-2025 INR Coag (PPP) [Relative time] 1.2 {INR} High 0.8-1.1 [facility] Comment on above: Order Comment: Durin g the induction phase of oral anticoagulation, the INR may not reflect the anticoagulation status of the patient. Therapeutic ranges for INR's are:Most clinical situations: INR 2.0-3.0Mechanical Prosthetic Valve: INR 2.5-3.5Critical: INR >5.0 Performed By: #### 4 6391 ####[facility] LAB [address] [place], [place] [address] Jack Mendoza M.D. [id number] PT Coag (PPP) [Time] 15.7 s High 11.8-14.3 [facility] Comment on above: Order Comment: Markin g the induction phase of oral anticoagulation, the INR may not reflect the anticoagulation status of the patient. Therapeutic ranges for INR's are:Most clinical situations: INR 2.0-3.0Mechanical Prosthetic Valve: INR 2.5-3.5Critical: INR >5.0 Performed By: #### 4 6391 #### LAB [address], [place] [address] Jack Mendoza M.D. [id number] RENAL FUNCTION PANELon 07-03 Albumin [Mass/Vol] 3.0 g/dL Low 3.2-5.2 [facility] Comment on above: Order Comment: [facility] has implemented the eGFR calculation approach that does not have a coefficient for race that conforms to the NKF-ASN Task Force Recommendations. Performed By: #### 4 6449 #### LAB [address] [place], [place] [address] Jack Mendoza M.D. [id number] Performed By: #### 4 5866 #### LAB [address], [place] [address] Jack Mendoza M.D. [id number] Anion gap [Moles/Vol] 7 mmol/L Low 10-20 [facility] Comment on above: Order Comment: [facility] has implemented the eGFR calculation approach that does not have a coefficient for race that conforms to the NKF-ASN Task Force Recommendations. Performed By: #### 4 6449 #### LAB [address], [place] [address] Jack Mendoza M.D. [id number] Calcium [Mass/Vol] 8.1 mg/dL Low 8.4-10.2 [facility] Comment on above: Order Comment: [facility] has implemented the eGFR calculation approach that does not have a coefficient for race that conforms to the NKF-ASN Task Force Recommendations. Performed By: #### 4 6449 #### LAB [address], [place] [address] Jack Mendoza M.D. [id number] Chloride [Moles/Vol] 94 mmol/L Low 98-108 [facility] Comment on above: Order Comment: [facility] has implemented the eGFR calculation approach that does not have a coefficient for race that conforms to the NKF-ASN Task Force Recommendations. Performed By: #### 4 6449 #### LAB [address] [place], [place] [address] Jack Mendoza M.D. [id number] Creatinine [Mass/Vol] 0.55 mg/dL Normal 0.50-1.30 [facility] Comment on above: Order Comment: [facility] has implemented the eGFR calculation approach that does not have a coefficient for race that conforms to the NKF-ASN Task Force Recommendations. Performed By: #### 4 6449 #### LAB [address], [place] [address] Jack Mendoza M.D. [id number] EGFR 115 mL/min/1.73 m2 Normal >=60 [facility] Comment on above: Order Comment: [facility] has implemented the eGFR calculation approach that does not have a coefficient for race that conforms to the NKF-ASN Task Force Recommendations. Result Comment: Ashley mated GFR was calculated using the 2020 CKD-EPI creatinine equation. Performed By: #### 4 6449 #### LAB [address] [address] Jack Mendoza M.D. [id number] Glucose [Mass/Vol] 130 mg/dL High 65-99 [facility] Comment on above: Order Comment: [facility] has implemented the eGFR calculation approach that does not have a coefficient for race that conforms to the NKF-ASN Task Force Recommendations. Performed By: #### 4 6449 #### LAB [address] [address] Jack Mendoza M.D. [id number] HCO3 (Bld) [Moles/Vol] 35 mmol/L High 21-32 [facility] Comment on above: Order Comment: [facility] has implemented the eGFR calculation approach that does not have a coefficient for race that conforms to the NKF-ASN Task Force Recommendations. Performed By: #### 4 6449 #### LAB [address] [address] Jack Mendoza M.D. [id number] Phosphate [Mass/Vol] 2.6 mg/dL Low 2.7-4.5 [facility] Comment on above: Order Comment: [facility] has implemented the eGFR calculation approach that does not have a coefficient for race that conforms to the NKF-ASN Task Force Recommendations. Performed By: #### 4 6449 #### LAB [address] [address] Jack Mendoza M.D. [id number] Potassium [Moles/Vol] 4.3 mmol/L Normal 3.5-5.1 [facility] Comment on above: Order Comment: [facility] has implemented the eGFR calculation approach that does not have a coefficient for race that conforms to the NKF-ASN Task Force Recommendations. Performed By: #### 4 6449 ####[facility] LAB [address] [address] Jack Mendoza M.D. [id number] Sodium [Moles/Vol] 132 mmol/L Low 135-145 [facility] Comment on above: Order Comment: [facility] has implemented the eGFR calculation approach that does not have a coefficient for race that conforms to the NKF-ASN Task Force Recommendations. Performed By: #### 4 6449 #### LAB [address] [place], [place] [address] Jack Mendoza M.D. [id number] Urea nitrogen [Mass/Vol] 23 mg/dL Normal 8-25 [facility] Comment on above: Order Comment: [facility] has implemented the eGFR calculation approach that does not have a coefficient for race that conforms to the NKF-ASN Task Force Recommendations. Performed By: #### 4 6449 #### LAB [address] [address] Jack Mendoza M.D. [id number] Urea nitrogen/Creatinine [Mass ratio] 41.8 mg/mg High 10.0-20.0 [facility] Comment on above: Order Comment: [facility] has implemented the eGFR calculation approach that does not have a coefficient for race that conforms to the NKF-ASN Task Force Recommendations. Performed By: #### 4 6449 #### LAB [address] [address] Jack Mendoza M.D. [id number] VANCOMYCIN LEVEL, RANDOMon 1 09-02-2024 VANCOMYCIN RANDOM 22.8 mcg/mL Normal [facility] Comment on above: Order Comment: As of 05/2022 vancomycin dosing for [facility] inpatients will be done by Bayesian dosing software rather than off traditional trough values. Please contact the site specific inpatient pharmacy before making dose changes off of trough values alone for admitted patients.No established reference range. Performed By: #### 4 6651 #### LAB [address], [place] [address] Jack Mendoza M.D. [id number] CBC WITH AUTO DIFFERENTIALon 07-02-2025 AUTO NRBC 0.0 % Normal [facility] Comment on above: Performed By: #### L [id number] ####[facility] LAB [address], [place] [address] Jack Mendoza M.D. [id number] AUTO NRBC ABS COUNT 0.00 K/mcL Normal 0.00-0.00 [facility] Comment on above: Performed By: #### L [id number] #### LAB [address] [address] Jack Mendoza M.D. [id number] BASOPHILS ABSOLUTE COUNT 0.01 K/mcL Normal 0.00-0.30 [facility] Comment on above: Performed By: #### L [id number] #### LAB [address] [address] Jack Mendoza M.D. [id number] Basophils/100 WBC (Bld) 0.1 % Normal [facility] Comment on above: Performed By: #### L [id number] #### LAB [address] [address] Jack Mendoza M.D. [id number] Eosinophils (Bld) [#/Vol] 0.00 10*3/uL Normal 0.00-0.50 [facility] Comment on above: Performed By: #### L [id number] #### LAB [address] [address] Jack Mendoza M.D. [id number] Eosinophils/100 WBC (Bld) 0.0 % Normal [facility] Comment on above: Performed By: #### L [id number] #### LAB [address] [address] Jack Mendoza M.D. [id number] Erythrocyte distribution width (RBC) [Ratio] 17.8 % High 11.6-14.8 [facility] Comment on above: Performed By: #### L [id number] #### LAB [address] [address] Jack Mendoza M.D. [id number] Hematocrit (Bld) [Volume fraction] 30.6 % Low 41.0-53.0 [facility] Comment on above: Performed By: #### L [id number] #### LAB [address] [place] [address] Jack Mendoza M.D. [id number] Hemoglobin (Bld) [Mass/Vol] 9.2 g/dL Low 13.5-17.5 [facility] Comment on above: Performed By: #### L [id number] #### LAB [address] [address] Jack Mendoza M.D. [id number] IG ABSOLUTE 0.04 K/mcL Normal 0.00-0.30 [facility] Comment on above: Performed By: #### L [id number] #### LAB [address] [address] aJck Mendoza M.D. [id number] IG PERCENT 0.60 % Normal [facility] Comment on above: Result Comment: The IG parameter is the percentage of metamyelocytes, myelocytes and promyelocytes. An immature granulocyte count (IG) of 1% or more suggests the possibility of infection, an IG count of 3% is very likely related to an infection. Performed By: #### L [id number] #### LAB [address] [address] Jack Mendoza M.D. [id number] Lymphocytes (Bld) [#/Vol] 0.58 10*3/uL Low 0.90-4.00 [facility] Comment on above: Performed By: #### L [id number] #### LAB [address] [address] Jack Mendoza M.D. [id number] Lymphocytes/100 WBC (Bld) 8.4 % Normal [facility] Comment on above: Performed By: #### L [id number] #### LAB [address] [address] Jack Mendoza M.D. [id number] MCH (RBC) [Entitic mass] 20.6 pg Low 26.0-34.0 [facility] Comment on above: Performed By: #### L [id number] #### LAB [address] [address] Jack Mendoza M.D. [id number] MCV (RBC) [Entitic vol] 68.5 fL Low 80.0-100.0 [facility] Comment on above: Performed By: #### L [id number] #### LAB [address] [address] Jack Mendoza M.D. [id number] MEAN CORPUSCULAR HEMOGLOBIN CONC 30.1 g/dL Low 31.0-37.0 [facility] Comment on above: Performed By: #### L [id number] #### LAB [address] [address] Jack Mendoza M.D. [id number] Monocytes (Bld) [#/Vol] 0.74 10*3/uL Normal 0.30-0.90 [facility] Comment on above: Performed By: #### L [id number] #### LAB [address] [address] Jack Mendoza M.D. [id number] Monocytes/100 WBC (Bld) 10.7 % Normal [facility] Comment on above: Performed By: #### L [id number] #### LAB [address] [address] Jack Mendoza M.D. [id number] NEUTROPHILS ABSOLUTE COUNT 5.57 K/mcL Normal 1.70-7.00 [facility] Comment on above: Performed By: #### L [id number] #### LAB [address] [address] Jack Mendoza M.D. [id number] Neutrophils/100 WBC (Bld) 80.2 % Normal [facility] Comment on above: Performed By: #### L [id number] #### LAB [address] [place] [address] Jack Mendoza M.D. [id number] Platelet mean volume (Bld) [Entitic vol] 11.7 fL Normal 9.4-12.4 [facility] Comment on above: Performed By: #### L [id number] #### LAB [address] [place] [address] Jack Mendoza M.D. [id number] Platelets (Bld) [#/Vol] 118 10*3/uL Low 150-400 [facility] Comment on above: Performed By: #### L [id number] ####[facility] LAB [address] [id number] Jack Mendoza M.D. [id number] RBC (Bld) [#/Vol] 4.47 10*6/uL Low 4.50-5.90 [facility] Comment on above: Performed By: #### L [id number] ####[facility] LAB [address] [address] Jack Mendoza M.D. [id number] WBC (Bld) [#/Vol] 6.94 10*3/uL Normal 4.50-11.00 [facility] Comment on above: Performed By: #### L [id number] #### LAB [address] [address] Jack Mendoza M.D. [id number] CONSULTon 07-02-2025 CONSULT Normal [facility] HEPATIC FUNCTION PANELon Albumin [Mass/Vol] 2.7 g/dL Low 3.2-5.2 [facility] Comment on above: Performed By: #### 4 5866 ####[facility] LAB [address] [address] Jcak Mendoza M.D. [id number] ALP [Catalytic activity/Vol] 59 U/L Normal 40-150 [facility] Comment on above: Performed By: #### 4 5866 ####[facility] LAB [address] [address] Jack Mendoza M.D. [id number] ALT [Catalytic activity/Vol] 16 U/L Normal 0-50 U/L [facility] Comment on above: Performed By: #### 4 5866 ####[facility] LAB [address] [address] Jack Mendoza M.D. [id number] AST [Catalytic activity/Vol] 29 U/L Normal 0-50 U/L [facility] Comment on above: Performed By: #### 4 5866 ####[facility] LAB [address] [address] Jack Mendoza M.D. [id number] Bilirubin [Mass/Vol] 0.6 mg/dL Normal 0.0-1.3 [facility] Comment on above: Performed By: #### 4 5866 #### LAB [address] [address] Jack Mendoza M.D. [id number] Bilirubin.indirect [Mass/Vol] 0.3 mg/dL Normal 0.0-0.4 [facility] Comment on above: Performed By: #### 4 5866 #### LAB [address] [address] Jack Mendoza M.D. [id number] Protein [Mass/Vol] 6.2 g/dL Normal 6.0-8.0 [facility] Comment on above: Performed By: #### 4 5866 #### LAB [address] [address] Jack Mendoza M.D. [id number] MAGNESIUM LEVELon 07-02-2025 Magnesium [Mass/Vol] 2.1 mg/dL Normal 1.6-2.4 [facility] Comment on above: Performed By: #### 4 6109 #### LAB [address] [id number] Jack Mendoza M.D. [id number] POC GLUCOSE [facility] 025 Glucose [Mass/Vol] 156 mg/dL High -[address] [place] [address] Glucose [Mass/Vol] 127 mg/dL High [address] [place] [address] Glucose [Mass/Vol] 167 mg/dL High [address] [place] [address] Glucose [Mass/Vol] 174 mg/dL High [address] [place] [address] RENAL FUNCTION PANELon 07-02 Albumin [Mass/Vol] 2.8 g/dL Low 3.2-5.2 [facility] Comment on above: Order Comment: [facility] has implemented the eGFR calculation approach that does not have a coefficient for race that conforms to the NKF-ASN Task Force Recommendations. Performed By: #### 4 6449 #### LAB [address] [address] Jack Mendoza M.D. [id number] Anion gap [Moles/Vol] 8 mmol/L Low 10-20 [facility] Comment on above: Order Comment: [facility] has implemented the eGFR calculation approach that does not have a coefficient for race that conforms to the NKF-ASN Task Force Recommendations. Performed By: #### 4 6449 #### LAB [address] [place], [place] [address] Jack Mendoza M.D. [id number] Calcium [Mass/Vol] 8.0 mg/dL Low 8.4-10.2 [facility] Comment on above: Order Comment: [facility] has implemented the eGFR calculation approach that does not have a coefficient for race that conforms to the NKF-ASN Task Force Recommendations. Performed By: #### 4 6449 #### LAB [address] [place], [place] [address] Jack Mendoza M.D. [id number] Chloride [Moles/Vol] 96 mmol/L Low 98-108 [facility] Comment on above: Order Comment: [facility] has implemented the eGFR calculation approach that does not have a coefficient for race that conforms to the NKF-ASN Task Force Recommendations. Performed By: #### 4 6449 #### LAB [address], [place] [address] Jack Mendoza M.D. [id number] Creatinine [Mass/Vol] 0.60 mg/dL Normal 0.50-1.30 [facility] Comment on above: Order Comment: [facility] has implemented the eGFR calculation approach that does not have a coefficient for race that conforms to the NKF-ASN Task Force Recommendations. Performed By: #### 4 6449 #### LAB [address] [place], [place] [address] aJck Mendoza M.D. [id number] EGFR 112 mL/min/1.73 m2 Normal >=60 [facility] Comment on above: Order Comment: [facility] has implemented the eGFR calculation approach that does not have a coefficient for race that conforms to the NKF-ASN Task Force Recommendations. Result Comment: Ashley mated GFR was calculated using the 2020 CKD-EPI creatinine equation. Performed By: #### 4 6449 #### LAB [address] [address] Jack Mendoza M.D. [id number] Glucose [Mass/Vol] 158 mg/dL High 65-99 [facility] Comment on above: Order Comment: [facility] has implemented the eGFR calculation approach that does not have a coefficient for race that conforms to the NKF-ASN Task Force Recommendations. Performed By: #### 4 6449 #### LAB [address] [address] Jack Mendoza M.D. [id number] HCO3 (Bld) [Moles/Vol] 35 mmol/L High 21-32 [facility] Comment on above: Order Comment: [facility] has implemented the eGFR calculation approach that does not have a coefficient for race that conforms to the NKF-ASN Task Force Recommendations. Performed By: #### 4 6449 #### LAB [address] [address] Jack Mendoza M.D. [id number] Phosphate [Mass/Vol] 3.2 mg/dL Normal 2.7-4.5 [facility] Comment on above: Order Comment: [facility] has implemented the eGFR calculation approach that does not have a coefficient for race that conforms to the NKF-ASN Task Force Recommendations. Performed By: #### 4 6449 #### LAB [address] [address] Jack Mendoza M.D. [id number] Potassium [Moles/Vol] 5.0 mmol/L Normal 3.5-5.1 [facility] Comment on above: Order Comment: [facility] has implemented the eGFR calculation approach that does not have a coefficient for race that conforms to the NKF-ASN Task Force Recommendations. Performed By: #### 4 6449 #### LAB [address] [address] Jack Mendoza M.D. [id number] Sodium [Moles/Vol] 134 mmol/L Low 135-145 [facility] Comment on above: Order Comment: [facility] has implemented the eGFR calculation approach that does not have a coefficient for race that conforms to the NKF-ASN Task Force Recommendations. Performed By: #### 4 6449 ####[facility] LAB [address] [address] Jack Mendoza M.D. [id number] Urea nitrogen [Mass/Vol] 17 mg/dL Normal 8-25 [facility] Comment on above: Order Comment: [facility] has implemented the eGFR calculation approach that does not have a coefficient for race that conforms to the NKF-ASN Task Force Recommendations. Performed By: #### 4 6449 ####[facility] LAB [address] [address] Jack Mendoza M.D. [id number] Urea nitrogen/Creatinine [Mass ratio] 28.3 mg/mg High 10.0-20.0 [facility] Comment on above: Order Comment: [facility] has implemented the eGFR calculation approach that does not have a coefficient for race that conforms to the NKF-ASN Task Force Recommendations. Performed By: #### 4 6449 #### LAB [address] [address] Jack Mendoza M.D. [id number] ALPHA DEFENSINon 07-01-2025 ALPHA DEFENSIN ALPHA DEFENSIN DETECTED Alpha defensin detected suggesting the presence of infection. Additional laboratory studies are recommended. Abnormal [facility] Comment on above: Performed By: #### L [id number] ####[facility] LAB [address] [address] Jack Mendoza M.D. [id number] BLOOD CULTURE AEROBIC/ANAERO BICon 07-01-2025 BLOOD CULTURE AEROBIC/ANAEROBIC BLOOD CULTURE No Growth after 48 hrs Normal [facility] Comment on above: Order Comment: Blood Culture sets #1 and #2 cannot be collected with the same collection times. Each set must be collected from a different site, and must have a different collection time entered that reflects the actual collection time of each set. Performed By: #### 4 4014 ####[facility] [address] [place] [address] Venancio Richardson M.D. [id number] BLOOD CULTURE AEROBIC/ANAEROBIC BLOOD CULTURE No Growth after 48 hrs [facility] Comment on above: Order Comment: Blood Culture sets #1 and #2 cannot be collected with the same collection times. Each set must be collected from a different site, and must have a different collection time entered that reflects the actual collection time of each set. Performed By: #### 4 4014 ####[facility] [address] [place] [address] Venancio Richardson M.D. [id number] CBC WITH AUTO DIFFERENTIALon 07-01-2025 AUTO NRBC 0.0 % [facility] Comment on above: Performed By: #### L [id number] ####[facility] LAB [address] [place] [address] Jack Mendoza M.D. [id number] AUTO NRBC ABS COUNT 0.00 K/mcL Normal 0.00-0.00 [facility] Comment on above: Performed By: #### L [id number] #### LAB [address] [address] Jack Mendoza M.D. [id number] BASOPHILS ABSOLUTE COUNT 0.00 K/mcL Normal 0.00-0.30 [facility] Comment on above: Performed By: #### L [id number] #### LAB [address] [address] Jack Mendoza M.D. [id number] Basophils/100 WBC (Bld) 0.0 % [facility] Comment on above: Performed By: #### L [id number] #### LAB [address] [address] Jack Mendoza M.D. [id number] Eosinophils (Bld) [#/Vol] 0.00 10*3/uL Normal 0.00-0.50 [facility] Comment on above: Performed By: #### L [id number] #### LAB [address] [address] Jack Mendoza M.D. [id number] Eosinophils/100 WBC (Bld) 0.0 % Normal [facility] Comment on above: Performed By: #### L [id number] #### LAB [address] [address] Jack Mendoza M.D. [id number] Erythrocyte distribution width (RBC) [Ratio] 17.8 % High 11.6-14.8 [facility] Comment on above: Performed By: #### L [id number] #### LAB [address] [address] Jack Mendoza M.D. [id number] Hematocrit (Bld) [Volume fraction] 34.9 % Low 41.0-53.0 [facility] Comment on above: Performed By: #### L [id number] #### LAB [address] [address] Jack Mendoza M.D. [id number] Hemoglobin (Bld) [Mass/Vol] 10.6 g/dL Low 13.5-17.5 [facility] Comment on above: Performed By: #### L [id number] #### LAB [address] [address] Jack Mendoza M.D. [id number] IG ABSOLUTE 0.01 K/mcL Normal 0.00-0.30 [facility] Comment on above: Performed By: #### L [id number] #### LAB [address] [address] Jack Mendoza M.D. [id number] IG PERCENT 0.50 % Normal [facility] Comment on above: Result Comment: The IG parameter is the percentage of metamyelocytes, myelocytes and promyelocytes. An immature granulocyte count (IG) of 1% or more suggests the possibility of infection, an IG count of 3% is very likely related to an infection. Performed By: #### L [id number] #### LAB [address] [place] [address] Jack Mendoza M.D. [id number] Lymphocytes (Bld) [#/Vol] 0.34 10*3/uL Low 0.90-4.00 [facility] Comment on above: Performed By: #### L [id number] #### LAB [address] [address] Jack Mendoza M.D. [id number] Lymphocytes/100 WBC (Bld) 18.2 % Normal [facility] Comment on above: Performed By: #### L [id number] #### LAB [address] [address] Jack Mendoza M.D. [id number] MCH (RBC) [Entitic mass] 20.7 pg Low 26.0-34.0 [facility] Comment on above: Performed By: #### L [id number] #### LAB [address] [address] Jack Mendoza M.D. [id number] MCV (RBC) [Entitic vol] 68.3 fL Low 80.0-100.0 [facility] Comment on above: Performed By: #### L [id number] #### LAB [address] [address] Jack Mendoza M.D. [id number] MEAN CORPUSCULAR HEMOGLOBIN CONC 30.4 g/dL Low 31.0-37.0 [facility] Comment on above: Performed By: #### L [id number] #### LAB [address] [place] [address] Jack Mendoza M.D. [id number] Monocytes (Bld) [#/Vol] 0.09 10*3/uL Low 0.30-0.90 [facility] Comment on above: Performed By: #### L [id number] #### LAB [address] [place] [address] Jack Mendoza M.D. [id number] Monocytes/100 WBC (Bld) 4.8 % [facility] Comment on above: Performed By: #### L [id number] #### LAB [address] [place] [address] Jack Mendoza M.D. [id number] NEUTROPHILS ABSOLUTE COUNT 1.43 K/mcL Low 1.70-7.00 [facility] Comment on above: Performed By: #### L [id number] ####[facility] LAB [address] [id number] Jack Mendoza M.D. [id number] Neutrophils/100 WBC (Bld) 76.5 % Normal [facility] Comment on above: Result Comment: Tiffany pheral smear reviewed manually Performed By: #### L [id number] ####[facility] LAB [address] [address] Jack Mendoza M.D. [id number] Platelets (Bld) [#/Vol] 95 10*3/uL Low 150-400 [facility] Comment on above: Performed By: #### L [id number] ####[facility] LAB [address] [address] Jack Mendoza M.D. [id number] RBC (Bld) [#/Vol] 5.11 10*6/uL Normal 4.50-5.90 [facility] Comment on above: Performed By: #### L [id number] ####[facility] LAB [address] [address] Jack Mendoza M.D. [id number] WBC (Bld) [#/Vol] 1.87 10*3/uL Low 4.50-11.00 [facility] Comment on above: Performed By: #### L [id number] ####[facility] LAB [address] [address] Jack Mendoza M.D. [id number] CONSULTon 07-01-2025 CONSULT Normal [facility] CONSULT Normal [facility] CRP, INFLAMMATIONon 07-01-20 CRP [Mass/Vol] 23.1 mg/L High 0.0-10.0 [facility] Comment on above: Performed By: #### 4 5334 ####[facility] LAB [address] [address] Jack Mendoza M.D. [id number] DRUGS OF ABUSE SCREEN, URINE on 07-01-2025 AMPHETAMINE SCREEN, URINE Not detected Normal None Detected [facility] Comment on above: Order Comment: Scree n results should be used for treatment purposes only.Specimen will be kept for 2 weeks, if the sample is adequate. Confirmation testing can be initiated by calling the lab within 2 weeks. Result Comment: Urin e Amphetamine Cutoff: < 1000 ng/mL = None Detected Performed By: #### 4 6965 ####[facility] LAB [address] [address] Jack Mednoza M.D. [id number] BARBITURATE SCREEN URINE Not detected Normal None Detected [facility] Comment on above: Order Comment: Scree n results should be used for treatment purposes only.Specimen will be kept for 2 weeks, if the sample is adequate. Confirmation testing can be initiated by calling the lab within 2 weeks. Result Comment: Urin e Barbiturates Cutoff: < 200 ng/mL = None Detected Performed By: #### 4 6965 ####[facility] LAB [address] [address] Jack Mendoza M.D. [id number] BENZODIAZEPINE SCREEN, URINE Positive Abnormal None Detected [facility] Comment on above: Order Comment: Scree n results should be used for treatment purposes only.Specimen will be kept for 2 weeks, if the sample is adequate. Confirmation testing can be initiated by calling the lab within 2 weeks. Result Comment: Urin e Benzodiazepine Cutoff: < 200 ng/mL = None Detected Performed By: #### 4 6965 ####[facility] LAB [address] [address] Jack Mendoza M.D. [id number] BUPRENORPHINE, URINE Positive Abnormal None Detected [facility] Comment on above: Order Comment: Scree n results should be used for treatment purposes only.Specimen will be kept for 2 weeks, if the sample is adequate. Confirmation testing can be initiated by calling the lab within 2 weeks. Result Comment: Urin e Buprenorphine Cutoff: < 5 ng/mL = None Detected Performed By: #### 4 6965 ####[facility] LAB [address] [address] Jack Mendoza M.D. [id number] CANNABINOID SCREEN URINE Positive Abnormal None Detected [facility] Comment on above: Order Comment: Scree n results should be used for treatment purposes only.Specimen will be kept for 2 weeks, if the sample is adequate. Confirmation testing can be initiated by calling the lab within 2 weeks. Result Comment: Urin e Cannabinoids Cutoff: < 50 ng/mL = None Detected Performed By: #### 4 6965 ####[facility] LAB [address] [address] Jack Mendoza M.D. [id number] COCAINE, SCREEN URINE Positive Abnormal None Detected [facility] Comment on above: Order Comment: Scree n results should be used for treatment purposes only.Specimen will be kept for 2 weeks, if the sample is adequate. Confirmation testing can be initiated by calling the lab within 2 weeks. Result Comment: Urin e Cocaine Cutoff: < 300 ng/mL = None Detected Performed By: #### 4 6965 ####[facility] LAB [address] [place] [address] Jack Mendoza M.D. [id number] FENTANYL, URINE Not detected Normal None Detected [facility] Comment on above: Order Comment: Scree n results should be used for treatment purposes only.Specimen will be kept for 2 weeks, if the sample is adequate. Confirmation testing can be initiated by calling the lab within 2 weeks. Result Comment: Urin e Fentanyl Cutoff: < 1 ng/mL = None Detected Performed By: #### 4 6965 ####[facility] LAB [address] [address] Jack Mendoza M.D. [id number] METHADONE SCREEN, URINE Not detected Normal None Detected [facility] Comment on above: Order Comment: Scree n results should be used for treatment purposes only.Specimen will be kept for 2 weeks, if the sample is adequate. Confirmation testing can be initiated by calling the lab within 2 weeks. Result Comment: Urin e Methadone Cutoff: < 300 ng/mL = None Detected Performed By: #### 4 6965 ####[facility] LAB [address] [address] Jack Mendoza M.D. [id number] OPIATE SCREEN URINE Not detected Normal None Detected [facility] Comment on above: Order Comment: Scree n results should be used for treatment purposes only.Specimen will be kept for 2 weeks, if the sample is adequate. Confirmation testing can be initiated by calling the lab within 2 weeks. Result Comment: Urin e Opiates Cutoff: < 300 ng/mL = None Detected Performed By: #### 4 6965 ####[facility] LAB [address] [place], [place] [address] Jack Mendoza M.D. [id number] OXYCODONE SCREEN, URINE Positive Abnormal None Detected [facility] Comment on above: Order Comment: Scree n results should be used for treatment purposes only.Specimen will be kept for 2 weeks, if the sample is adequate. Confirmation testing can be initiated by calling the lab within 2 weeks. Result Comment: Urin e Oxycodone Cutoff: < 100 ng/mL = None Detected Performed By: #### 4 6965 ####[facility] LAB [address] [place], [place] [address] Jack Mendoza M.D. [id number] ECHOCARDIOGRAM LIMITEDon ECHOCARDIOGRAM LIMITED Normal [facility] HEPATITIS A ANTIBODY, IGMon 07-01-2025 HEPATITIS A IGM ANTIBODY Equivocal Abnormal Negative [facility] Comment on above: Order Comment: Test performed using Shen SOHAM immunoassay system Result Comment: Hepa titis A IgM result is equivocal. It is recommended that a new specimen be drawn in two weeks and re-tested. Performed By: #### 4 5870 ####[facility] [address] [place], [place] [id number] Venancio Richardson M.D. [id number] HEPATITIS A ANTIBODY,TOTALon 07-01-2025 HEPATITIS A TOTAL ANTIBODY Positive Abnormal Negative [facility] Comment on above: Order Comment: Test performed using Shen SOHAM immunoassay system Performed By: #### 4 5869 ####[facility] [address] [place], [place] [id number] Venancio Richardson M.D. [id number] HEPATITIS B CORE ANTIBODY, T OTALon 07-01-2025 HEPATITIS B CORE TOTAL ANTIBODY Positive Abnormal Negative [facility] Comment on above: Order Comment: Test performed using Shen SOHAM immunoassay system Performed By: #### 4 5873 ####[facility] [address] [place] [address] Venancio Richardson M.D. [id number] HEPATITIS B SURFACE ANTIBODY on 07-01-2025 HEPATITIS B SURFACE ANTIBODY Positive Abnormal Negative [facility] Comment on above: Order Comment: Test performed using [employer] SOHAM immunoassay system Performed By: #### 4 5876 ####[facility] [address] [place] [address] Venancio Richardson M.D. [id number] HEPATITIS B SURFACE ANTIGENo n 07-01-2025 HEPATITIS B SURFACE ANTIGEN Negative Normal Negative [facility] Comment on above: Order Comment: Test performed using Shen SOH[employer] immunoassay system Performed By: #### 4 4081 ####[facility] [address] [place] [address] Venancio Richardson M.D. [id number] HEPATITIS C ANTIBODYon 07-01 HEPATITIS C ANTIBODY Positive Abnormal Negative [facility] Comment on above: Order Comment: Test performed using Shen SOHAM immunoassay system Result Comment: A po sitive antibody test requires additional follow-up testing, Hepatitis C Virus Quantitation, to determine if a person is currently infected with Hepatitis C. Performed By: #### 4 5878 ####[facility] [address] [place] [address] Venancio Richardson M.D. [id number] MAGNESIUM LEVELon 07-01-2025 Magnesium [Mass/Vol] 1.9 mg/dL Normal 1.6-2.4 [facility] Comment on above: Performed By: #### 4 6109 ####[facility] LAB [address], [place] [address] Jack Mendoza M.D. [id number] OP NOTEon 07-01-2025 OP NOTE Normal [facility] Glucose [Mass/Vol] 153 mg/dL High 65- [facility] Glucose [Mass/Vol] 165 mg/dL High 65- [facility] Glucose [Mass/Vol] 146 mg/dL High 65- [facility] Glucose [Mass/Vol] 145 mg/dL High 65- [facility] RENAL FUNCTION PANELon 07-01 Albumin [Mass/Vol] 2.9 g/dL Low 3.2-5.2 [facility] Comment on above: Order Comment: [facility] has implemented the eGFR calculation approach that does not have a coefficient for race that conforms to the NKF-ASN Task Force Recommendations. Performed By: #### 4 6449 #### LAB [address], [place] [address] Jack Mendoza M.D. [id number] Anion gap [Moles/Vol] 8 mmol/L Low 10-20 [facility] Comment on above: Order Comment: [facility] has implemented the eGFR calculation approach that does not have a coefficient for race that conforms to the NKF-ASN Task Force Recommendations. Performed By: #### 4 6449 #### LAB [address], [place] [address] Jack Mendoza M.D. [id number] Calcium [Mass/Vol] 8.4 mg/dL Normal 8.4-10.2 [facility] Comment on above: Order Comment: [facility] has implemented the eGFR calculation approach that does not have a coefficient for race that conforms to the NKF-ASN Task Force Recommendations. Performed By: #### 4 6449 #### LAB [address], [place] [address] Jack Mendoza M.D. [id number] Chloride [Moles/Vol] 95 mmol/L Low 98-108 [facility] Comment on above: Order Comment: [facility] has implemented the eGFR calculation approach that does not have a coefficient for race that conforms to the NKF-ASN Task Force Recommendations. Performed By: #### 4 6449 #### LAB [address], [place] [address] Jack Mendoza M.D. [id number] Creatinine [Mass/Vol] 0.51 mg/dL Normal 0.50-1.30 [facility] Comment on above: Order Comment: [facility] has implemented the eGFR calculation approach that does not have a coefficient for race that conforms to the NKF-ASN Task Force Recommendations. Performed By: #### 4 6449 #### LAB [address] [address] Jack Mendoza M.D. [id number] EGFR 118 mL/min/1.73 m2 Normal >=60 [facility] Comment on above: Order Comment: [facility] has implemented the eGFR calculation approach that does not have a coefficient for race that conforms to the NKF-ASN Task Force Recommendations. Result Comment: Ashley mated GFR was calculated using the 2020 CKD-EPI creatinine equation. Performed By: #### 4 6449 #### LAB [address] [address] Jack Mendoza M.D. [id number] Glucose [Mass/Vol] 172 mg/dL High 65-99 [facility] Comment on above: Order Comment: [facility] has implemented the eGFR calculation approach that does not have a coefficient for race that conforms to the NKF-ASN Task Force Recommendations. Performed By: #### 4 6449 #### LAB [address] [address] Jack Mendoza M.D. [id number] HCO3 (Bld) [Moles/Vol] 36 mmol/L High 21-32 [facility] Comment on above: Order Comment: [facility] has implemented the eGFR calculation approach that does not have a coefficient for race that conforms to the NKF-ASN Task Force Recommendations. Performed By: #### 4 6449 #### LAB [address] [address] Jack Mendoza M.D. [id number] Phosphate [Mass/Vol] 2.6 mg/dL Low 2.7-4.5 [facility] Comment on above: Order Comment: [facility] has implemented the eGFR calculation approach that does not have a coefficient for race that conforms to the NKF-ASN Task Force Recommendations. Performed By: #### 4 6449 #### LAB [address] [address] Jack Mendoza M.D. [id number] Potassium [Moles/Vol] 4.5 mmol/L Normal 3.5-5.1 [facility] Comment on above: Order Comment: [facility] has implemented the eGFR calculation approach that does not have a coefficient for race that conforms to the NKF-ASN Task Force Recommendations. Performed By: #### 4 6449 #### LAB [address] [address] Jack Mendoza M.D. [id number] Sodium [Moles/Vol] 134 mmol/L Low 135-145 [facility] Comment on above: Order Comment: [facility] has implemented the eGFR calculation approach that does not have a coefficient for race that conforms to the NKF-ASN Task Force Recommendations. Performed By: #### 4 6449 #### LAB [address] [address] Jack Mendoza M.D. [id number] Urea nitrogen [Mass/Vol] 12 mg/dL Normal 8-25 [facility] Comment on above: Order Comment: [facility] has implemented the eGFR calculation approach that does not have a coefficient for race that conforms to the NKF-ASN Task Force Recommendations. Performed By: #### 4 6449 #### LAB [address] [id number] Jack Mendoza M.D. [id number] Urea nitrogen/Creatinine [Mass ratio] 23.5 mg/mg High 10.0-20.0 [facility] Comment on above: Order Comment: [facility] has implemented the eGFR calculation approach that does not have a coefficient for race that conforms to the NKF-ASN Task Force Recommendations. Performed By: #### 4 6449 #### LAB [address] [place], [place] [address] Jack Mendoza M.D. [id number] SEDIMENTATION RATEon 11-10-2 025 SEDIMENTATION RATE, ERYTHROCYTE 56 mm/hr High 0-20 [facility] Comment on above: Performed By: #### 4 6477 #### LAB [address] [id number] Jack Mendoza M.D. [id number] TISSUE EXAMon 07-01-2025 TISSUE EXAM Normal [facility] Comment on above: Performed By: #### 4 7015 #### LAB [address] [address] Jack Mendoza M.D. [id number] XR KNEE RIGHT 2 VIEWS (STAND NO)on 07-01-2025 XR KNEE RIGHT 2 VIEWS (STANDARD) Normal [facility] Comment on above: Order Comment: Injur y/Trauma or Illness?:Illness/OtherHow long have you had these symptoms (acute/chronic)?:AcuteReason for exam?:post op right kneeHistory of cancer?:uSurgeries, chemotherapy, or radiation?:uType of Exam?:InitialAdditional signs and symptoms?:. CBC WITH AUTO DIFFERENTIALon 06-30-2025 AUTO NRBC 0.0 % Normal [facility] Comment on above: Performed By: #### L [id number] ####[facility] [address] [address] Jack Mendoza M.D. [id number] AUTO NRBC ABS COUNT 0.00 K/mcL Normal 0.00-0.00 [facility] Comment on above: Performed By: #### L [id number] ####[facility] [address] [address] Jack Mendoza M.D. [id number] Erythrocyte distribution width (RBC) [Ratio] 18.8 % High 11.6-14.8 [facility] Comment on above: Performed By: #### L [id number] ####[facility] [address] [address] Jack Mendoza M.D. [id number] Hematocrit (Bld) [Volume fraction] 39.1 % Low 41.0-53.0 [facility] Comment on above: Performed By: #### L [id number] #### LAB [address] [address] Jack Mendoza M.D. [id number] Hemoglobin (Bld) [Mass/Vol] 11.6 g/dL Low 13.5-17.5 [facility] Comment on above: Performed By: #### L [id number] ####[facility] [address] [address] Jack Mendoza M.D. [id number] MCH (RBC) [Entitic mass] 20.7 pg Low 26.0-34.0 [facility] Comment on above: Performed By: #### L [id number] #### LAB [address] [address] Jack Mendoza M.D. [id number] MCV (RBC) [Entitic vol] 69.7 fL Low 80.0-100.0 [facility] Comment on above: Performed By: #### L [id number] #### LAB [address] [address] Jack Mendoza M.D. [id number] MEAN CORPUSCULAR HEMOGLOBIN CONC 29.7 g/dL Low 31.0-37.0 [facility] Comment on above: Performed By: #### L [id number] #### LAB [address] [address] Jack Mendoza M.D. [id number] Platelets (Bld) [#/Vol] 110 10*3/uL Low 150-400 [facility] Comment on above: Performed By: #### L [id number] #### LAB [address] [place] [address] Jack Mendoza M.D. [id number] RBC (Bld) [#/Vol] 5.61 10*6/uL Normal 4.50-5.90 [facility] Comment on above: Performed By: #### L [id number] ####[facility] [address] [address] Jack Mendoza M.D. [id number] WBC (Bld) [#/Vol] 3.23 10*3/uL Low 4.50-11.00 [facility] Comment on above: Performed By: #### L [id number] #### LAB [address] [place] [address] Jack Mendoza M.D. [id number] H AND Mike 11-09-2025 H AND P Normal [facility] HEMOGLOBIN A1Con 06-30-2025 Glucose [Mass/Vol] 126 mg/dL High 74-114 [facility] Comment on above: Performed By: #### 4 8202 #### LAB [address] [address] Jack Mendoza M.D. [id number] HbA1c (Bld) [Mass fraction] 6.0 % High 4.2-5.6 [facility] Comment on above: Performed By: #### 4 8202 #### LAB [address] [address] Jack Mendoza M.D. [id number] HIV 1/2 SCREEN ( GENERA ON)on 06-30-2025 HIV 1-2 SCREEN Negative Normal Negative [facility] Comment on above: Order Comment: This assay screens for the presence of HIV-1, HIV-2 antibodies and for the presence of HIV-1 antigen.Test performed using Shen SOHAM immunoassay system Performed By: #### 4 5928 ####[facility] [address] [place] [address] Venancio Richardson M.D. [id number] MAGNESIUM LEVELon 06-30-2025 Magnesium [Mass/Vol] 1.7 mg/dL Normal 1.6-2.4 [facility] Comment on above: Performed By: #### 4 6109 ####[facility] [address] [address] Jack Mendoza M.D. [id number] MANUAL DIFFERENTIALon 2024 BASOPHILS - ABS (DIFF) 0.00 K/mcL Normal 0.00-0.30 [facility] Comment on above: Performed By: #### 4 5456 ####[facility] [address] [address] Jack Mendoza M.D. [id number] BASOPHILS - REL (DIFF) 0.0 % Normal [facility] Comment on above: Performed By: #### 4 5456 #### LAB [address] [address] Jack Mendoza M.D. [id number] EOSINOPHILS - ABS (DIFF) 0.00 K/mcL Normal 0.00-0.50 [facility] Comment on above: Performed By: #### 4 5456 #### LAB [address] [address] Jack Mendoza M.D. [id number] EOSINOPHILS - REL (DIFF) 0.0 % [facility] Comment on above: Performed By: #### 4 5456 #### LAB [address] [address] Jack Mendoza M.D. [id number] LYMPHOCYTE ATYPICAL - REL (DIFF) 5.0 % [facility] Comment on above: Performed By: #### 4 5456 #### LAB [address] [address] Jack Mendoza M.D. [id number] LYMPHOCYTES - ABS (DIFF) 0.74 K/mcL Low 0.90-4.00 [facility] Comment on above: Performed By: #### 4 3756 #### LAB [address] [address] Jack Mendoza M.D. [id number] LYMPHOCYTES - REL (DIFF) 18.0 % [facility] Comment on above: Performed By: #### 4 5415 #### LAB [address] [address] Jack Mendoza M.D. [id number] MONOCYTES - ABS (DIFF) 0.13 K/mcL Low 0.30-0.90 [facility] Comment on above: Performed By: #### 4 5656 #### LAB [address] [address] Jack Mendoza M.D. [id number] MONOCYTES - REL (DIFF) 4.0 % [facility] Comment on above: Performed By: #### 4 0420 #### LAB [address] [address] Jack Mendoza M.D. [id number] NEUTROPHILS - ABS (DIFF) 2.36 K/mcL Normal 1.70-7.00 [facility] Comment on above: Performed By: #### 4 5456 #### LAB [address] [address] Jack Mendoza M.D. [id number] NEUTROPHILS - REL (DIFF) 73.0 % Normal [facility] Comment on above: Performed By: #### 4 5456 ####[facility] [address] [address] Jack Mendoza M.D. [id number] MORPHOLOGYon 06-30-2025 OVAL SCAN Moderate Normal [facility] Comment on above: Performed By: #### L [id number] ####[facility] [address] [address] Jack Mendoza M.D. [id number] PLATELET ESTIMATE Decreased Abnormal Normal [facility] Comment on above: Performed By: #### L AB295 ####[facility] [address] [address] Jack Mendoza M.D. [id number] RBC MORPH SCAN See Comment Normal [facility] Comment on above: Result Comment: RBC Indices confirmed with manual peripheral smear review. Performed By: #### L AB295 ####[facility] [address] [address] Jack Mendoza M.D. [id number] TARGET CELL SCAN Moderate Normal [facility] Comment on above: Performed By: #### L AB295 ####[facility] [address] [address] Jack Mendoza M.D. [id number] NT PRO BNPon 06-30-2025 Natriuretic peptide B (Bld) [Mass/Vol] 55 pg/mL Normal 0-300 [facility] Comment on above: Order Comment: Pride Study Cut-offsRule In:< /= 50 Years >450 pg/mL51 Years - 75 Years >900 pg/mL76 Years - 99 Years >1800 pg/mLRule Out:All patients <300 pg/mL Performed By: #### 4 7395 ####[facility] [address] [address] Jack Mendoza M.D. [id number] [facility] Glucose [Mass/Vol] 141 mg/dL High 65-99 [facility] RENAL FUNCTION PANELon 06-30 Albumin [Mass/Vol] 3.2 g/dL Normal 3.2-5.2 [facility] Comment on above: Order Comment: [facility] has implemented the eGFR calculation approach that does not have a coefficient for race that conforms to the NKF-ASN Task Force Recommendations. Performed By: #### 4 6449 #### LAB [address] [place], [place] [address] Jack Mendoza M.D. [id number] Anion gap [Moles/Vol] 11 mmol/L Normal 10-20 [facility] Comment on above: Order Comment: [facility] has implemented the eGFR calculation approach that does not have a coefficient for race that conforms to the NKF-ASN Task Force Recommendations. Performed By: #### 4 6449 #### LAB [address] [place], [place] [address] Jack Mendoza M.D. [id number] Calcium [Mass/Vol] 8.5 mg/dL Normal 8.4-10.2 [facility] Comment on above: Order Comment: [facility] has implemented the eGFR calculation approach that does not have a coefficient for race that conforms to the NKF-ASN Task Force Recommendations. Performed By: #### 4 6449 #### LAB [address] [place], [place] [address] Jack Mendoza M.D. [id number] Chloride [Moles/Vol] 95 mmol/L Low 98-108 [facility] Comment on above: Order Comment: [facility] has implemented the eGFR calculation approach that does not have a coefficient for race that conforms to the NKF-ASN Task Force Recommendations. Performed By: #### 4 6449 #### LAB [address] [place], [place] [address] Jack Mendoza M.D. [id number] Creatinine [Mass/Vol] 0.51 mg/dL Normal 0.50-1.30 [facility] Comment on above: Order Comment: [facility] has implemented the eGFR calculation approach that does not have a coefficient for race that conforms to the NKF-ASN Task Force Recommendations. Performed By: #### 4 6449 #### LAB [address] [place], [place] [address] Jack Mendoza M.D. [id number] EGFR 118 mL/min/1.73 m2 Normal >=60 [facility] Comment on above: Order Comment: [facility] has implemented the eGFR calculation approach that does not have a coefficient for race that conforms to the NKF-ASN Task Force Recommendations. Result Comment: Ashley mated GFR was calculated using the 2020 CKD-EPI creatinine equation. Performed By: #### 4 6449 #### LAB [address] [place], [place] [address] Jack Mendoza M.D. [id number] Glucose [Mass/Vol] 122 mg/dL High 65-99 [facility] Comment on above: Order Comment: [facility] has implemented the eGFR calculation approach that does not have a coefficient for race that conforms to the NKF-ASN Task Force Recommendations. Performed By: #### 4 6449 #### LAB [address] [place], [place] [address] Jack Mendoza M.D. [id number] HCO3 (Bld) [Moles/Vol] 31 mmol/L Normal 21-32 [facility] Comment on above: Order Comment: [facility] has implemented the eGFR calculation approach that does not have a coefficient for race that conforms to the NKF-ASN Task Force Recommendations. Performed By: #### 4 6449 ####[facility] LAB [address] [place], [place] [address] Jack Mendoza M.D. [id number] Phosphate [Mass/Vol] 3.1 mg/dL Normal 2.7-4.5 [facility] Comment on above: Order Comment: [facility] has implemented the eGFR calculation approach that does not have a coefficient for race that conforms to the NKF-ASN Task Force Recommendations. Performed By: #### 4 6449 ####[facility] LAB [address] [place], [place] [address] Jack Mendoza M.D. [id number] Potassium [Moles/Vol] 5.2 mmol/L High 3.5-5.1 [facility] Comment on above: Order Comment: [facility] has implemented the eGFR calculation approach that does not have a coefficient for race that conforms to the NKF-ASN Task Force Recommendations. Result Comment: Slig htly Hemolyzed Performed By: #### 4 6449 #### LAB [address] [place], [place] [address] Jack Mendoza M.D. [id number] Sodium [Moles/Vol] 132 mmol/L Low 135-145 [facility] Comment on above: Order Comment: [facility] has implemented the eGFR calculation approach that does not have a coefficient for race that conforms to the NKF-ASN Task Force Recommendations. Performed By: #### 4 6449 #### LAB [address] [place] [address] Jack Mendoza M.D. [id number] Urea nitrogen [Mass/Vol] 12 mg/dL Normal 8-25 [facility] Comment on above: Order Comment: [facility] has implemented the eGFR calculation approach that does not have a coefficient for race that conforms to the NKF-ASN Task Force Recommendations. Performed By: #### 4 6449 #### LAB [address] [place], [place] [address] Jack Mendoza M.D. [id number] Urea nitrogen/Creatinine [Mass ratio] 23.5 mg/mg High 10.0-20.0 [facility] Comment on above: Order Comment: [facility] has implemented the eGFR calculation approach that does not have a coefficient for race that conforms to the NKF-ASN Task Force Recommendations. Performed By: #### 4 6449 #### LAB [address] [place], [place] [address] Jack Mendoza M.D. [id number] XR CHEST PA/APon 06-30-2025 XR CHEST PA/AP Normal [facility] Comment on above: Order Comment: Injur y/Trauma or Illness?:Illness/OtherHow long have you had these symptoms (acute/chronic)?:AcuteReason for exam?:SOB, concern for CHF exacerbationHistory of cancer?:uSurgeries, chemotherapy, or radiation?:uType of Exam?:InitialAdditional signs and symptoms?:. BASIC METABOLIC PANELon 09-09 26-2024 Anion gap [Moles/Vol] 10 mmol/L Normal 10-20 [facility] Comment on above: Order Comment: [facility] has implemented the eGFR calculation approach that does not have a coefficient for race that conforms to the NKF-ASN Task Force Recommendations. Performed By: #### 4 6124 #### LAB [address] [place] [address] Jack Mendoza M.D. [id number] Calcium [Mass/Vol] 8.5 mg/dL Normal 8.4-10.2 [facility] Comment on above: Order Comment: [facility] has implemented the eGFR calculation approach that does not have a coefficient for race that conforms to the NKF-ASN Task Force Recommendations. Performed By: #### 4 6124 #### LAB [address] [place] [address] Jack Mendoza M.D. [id number] Chloride [Moles/Vol] 99 mmol/L Normal 98-108 [facility] Comment on above: Order Comment: [facility] has implemented the eGFR calculation approach that does not have a coefficient for race that conforms to the NKF-ASN Task Force Recommendations. Performed By: #### 4 6124 #### LAB [address] [place] [address] Jack Mendoza M.D. [id number] Creatinine [Mass/Vol] 0.55 mg/dL Normal 0.50-1.30 [facility] Comment on above: Order Comment: [facility] has implemented the eGFR calculation approach that does not have a coefficient for race that conforms to the NKF-ASN Task Force Recommendations. Performed By: #### 4 6124 #### LAB [address] [place] [address] Jack Mendoza M.D. [id number] EGFR 115 mL/min/1.73 m2 Normal >=60 [facility] Comment on above: Order Comment: [facility] has implemented the eGFR calculation approach that does not have a coefficient for race that conforms to the NKF-ASN Task Force Recommendations. Result Comment: Ashley mated GFR was calculated using the 2020 CKD-EPI creatinine equation. Performed By: #### 4 6124 #### LAB [address] [place] [address] Jack Mendoza M.D. [id number] Glucose [Mass/Vol] 115 mg/dL High 65-99 [facility] Comment on above: Order Comment: [facility] has implemented the eGFR calculation approach that does not have a coefficient for race that conforms to the NKF-ASN Task Force Recommendations. Performed By: #### 4 6124 #### LAB [address] [place] [address] Jack Mendoza M.D. [id number] HCO3 (Bld) [Moles/Vol] 29 mmol/L Normal 21-32 [facility] Comment on above: Order Comment: [facility] has implemented the eGFR calculation approach that does not have a coefficient for race that conforms to the NKF-ASN Task Force Recommendations. Performed By: #### 4 6124 #### LAB [address] [place] [address] Jack Mendoza M.D. [id number] Potassium [Moles/Vol] 4.4 mmol/L Normal 3.5-5.1 [facility] Comment on above: Order Comment: [facility] has implemented the eGFR calculation approach that does not have a coefficient for race that conforms to the NKF-ASN Task Force Recommendations. Performed By: #### 4 6137 #### LAB [address] [place] [address] Jack Mendoza M.D. [id number] Sodium [Moles/Vol] 134 mmol/L Low 135-145 [facility] Comment on above: Order Comment: [facility] has implemented the eGFR calculation approach that does not have a coefficient for race that conforms to the NKF-ASN Task Force Recommendations. Performed By: #### 4 6124 #### LAB [address] [place], [place] [address] Jack Mendoza M.D. [id number] Urea nitrogen [Mass/Vol] 12 mg/dL Normal 8-25 [facility] Comment on above: Order Comment: [facility] has implemented the eGFR calculation approach that does not have a coefficient for race that conforms to the NKF-ASN Task Force Recommendations. Performed By: #### 4 6124 #### LAB [address] [place], [place] [address] Jack Mendoza M.D. [id number] Urea nitrogen/Creatinine [Mass ratio] 21.8 mg/mg High 10.0-20.0 [facility] Comment on above: Order Comment: [facility] has implemented the eGFR calculation approach that does not have a coefficient for race that conforms to the NKF-ASN Task Force Recommendations. Performed By: #### 4 6124 #### LAB [address] [place], [place] [address] Jack Mendoza M.D. [id number] Basic metabolic 2000 panelon 05-16-2025 Anion gap [Moles/Vol] 10 mmol/L 10 - 20 mmol/L [facility] Calcium [Mass/Vol] 8.5 mg/dL 8.4 - 10. 2 mg/dL [facility] Chloride [Moles/Vol] 99 mmol/L 98 - 10 8 mmol/L [facility] Creatinine [Mass/Vol] 0.55 mg/dL 0.50 - 1.30 mg/dL [facility] GFR/1.73 sq M.predicted CKD-EPI (S/P/Bld) [Vol rate/Area] 115 - PINF [facility] Comment on above: Estimated GFR was ca lculated using the 2020 CKD-EPI creatinine equation. Glucose [Mass/Vol] 115 mg/dL High 65 - 99 mg/dL [facility] HCO3 [Moles/Vol] 29 mmol/L 21 - 32 mmol/L [facility] Interpretation and review of laboratory results Abnormal [facility] Potassium [Moles/Vol] 4.4 mmol/L 3.5 - 5.1 mmol/L [facility] Sodium [Moles/Vol] 134 mmol/L Low 135 - 145 mmol/L [facility] Urea nitrogen [Mass/Vol] 12 mg/dL 8 - 25 mg/dL [facility] Urea nitrogen/Creatinine [Mass ratio] 21.8 mg/mg High 10.0 - 20.0 [facility] has implemented the eGFR calculation approach that does not have a coefficient for race that conforms to the NKF-ASN Task Force Recommendations. [facility] CBCon 05-16-2025 AUTO NRBC 0.0 % Normal [facility] Comment on above: Performed By: #### 4 [id number] #### LAB [address] [place] [address] Jack Mendoza M.D. [id number] AUTO NRBC ABS COUNT 0.00 K/mcL Normal 0.00-0.00 [facility] Comment on above: Performed By: #### 4 [id number] #### LAB [address] [place] [address] Jack Mendoza M.D. [id number] Erythrocyte distribution width (RBC) [Ratio] 15.9 % High 11.6-14.8 [facility] Comment on above: Performed By: #### 4 [id number] #### LAB [address] [place] [address] Jack Mendoza M.D. [id number] Hematocrit (Bld) [Volume fraction] 37.1 % Low 41.0-53.0 [facility] Comment on above: Performed By: #### 4 [id number] #### LAB [address] [place] [address] Jack Mendoza M.D. [id number] Hemoglobin (Bld) [Mass/Vol] 11.3 g/dL Low 13.5-17.5 [facility] Comment on above: Performed By: #### 4 [id number] #### LAB [address] [place] [address] Jack Mendoza M.D. [id number] MCH (RBC) [Entitic mass] 21.1 pg Low 26.0-34.0 [facility] Comment on above: Performed By: #### 4 [id number] #### LAB [address] [place] [id number] Jack Mendoza M.D. [id number] MCV (RBC) [Entitic vol] 69.2 fL Low 80.0-100.0 [facility] Comment on above: Performed By: #### 4 [id number] #### LAB [address] [place] [address] Jack Mendoza M.D. [id number] MEAN CORPUSCULAR HEMOGLOBIN CONC 30.5 g/dL Low 31.0-37.0 [facility] Comment on above: Performed By: #### 4 [id number] #### LAB [address] [place] [address] Jack Mendoza M.D. [id number] Platelets (Bld) [#/Vol] 120 10*3/uL Low 150-400 [facility] Comment on above: Performed By: #### 4 [id number] #### LAB [address] [place] [address] Jack Mendoza M.D. [id number] RBC (Bld) [#/Vol] 5.36 10*6/uL Normal 4.50-5.90 [facility] Comment on above: Performed By: #### 4 [id number] #### LAB [address] [place] [address] Jack Mendoza M.D. [id number] WBC (Bld) [#/Vol] 3.11 10*3/uL Low 4.50-11.00 [facility] Comment on above: Performed By: #### 4 [id number] #### LAB [address] [place] [address] Jack Mendoza M.D. [id number] CBC panel Auto (Bld)on 05-16 Erythrocyte distribution width (RBC) [Entitic vol] 15.9 % High 11.6 - 14.8 % [facility] Hematocrit (Bld) [Volume fraction] 37.1 % Low 41.0 - 53.0 % [facility] Hemoglobin (Bld) [Mass/Vol] 11.3 g/dL Low 13.5 - 17.5 g/dL [facility] Interpretation and review of laboratory results Abnormal [facility] MCH (RBC) [Entitic mass] 21.1 pg Low 26.0 - 34.0 pg [facility] MCHC (RBC) [Mass/Vol] 30.5 g/dL Low 31.0 - 37.0 g/dL [facility] MCV (RBC) [Entitic vol] 69.2 fL Low 80.0 - 100.0 fL [facility] Nucleated RBC (Bld) [#/Vol] 0 10*3/uL [facility] Nucleated RBC/100 WBC (Bld) [Ratio] 0 % [facility] Platelets (Bld) [#/Vol] 120 10*3/uL Low [facility] RBC (Bld) [#/Vol] 5.36 10*6/uL [facility] WBC (Bld) [#/Vol] 3.11 10*3/uL Low [facility] eah [facility] Disch Summon 05-16-2025 Disch Summ Normal [facility] Glucose (Bld) [Mass/Vol]on 0 05-16-2025 Glucose [Mass/Vol] 99 mg/dL 65 - 99 mg/dL [facility] Interpretation and review of laboratory results Normal [facility] Glucose [Mass/Vol] 126 mg/dL High 65 - 99 mg/dL [facility] Interpretation and review of laboratory results Abnormal [facility] MAGNESIUM LEVELon 05-16-2025 Magnesium [Mass/Vol] 1.9 mg/dL Normal 1.6-2.4 [facility] Comment on above: Performed By: #### 4 6109 #### LAB [address] [place], [place] [address] Jack Mendoza M.D. [id number] Magnesium Levelon 05-16-2025 Magnesium [Mass/Vol] 1.9 mg/dL 1.6 - 2 .4 mg/dL [facility] Magnesium [Mass/Vol]on 05-16 Interpretation and review of laboratory results Normal [facility] No Panel Informationon 05-16 [facility] POC GLUCOSE - [place] 025 Glucose [Mass/Vol] 99 mg/dL Normal 65-99 [facility] Glucose [Mass/Vol] 126 mg/dL High 65-99 [facility] BASIC METABOLIC PANELon 04-23 Anion gap [Moles/Vol] 11 mmol/L Normal 10-20 [facility] Comment on above: Order Comment: [facility] has implemented the eGFR calculation approach that does not have a coefficient for race that conforms to the NKF-ASN Task Force Recommendations. Performed By: #### 4 6124 #### LAB [address] [place], [place] [address] Jack Mendoza M.D. [id number] Calcium [Mass/Vol] 8.2 mg/dL Low 8.4-10.2 [facility] Comment on above: Order Comment: [facility] has implemented the eGFR calculation approach that does not have a coefficient for race that conforms to the NKF-ASN Task Force Recommendations. Performed By: #### 4 6124 #### LAB [address] [place] [id number] Jack Mendoza M.D. [id number] Chloride [Moles/Vol] 100 mmol/L Normal 98-108 [facility] Comment on above: Order Comment: [facility] has implemented the eGFR calculation approach that does not have a coefficient for race that conforms to the NKF-ASN Task Force Recommendations. Performed By: #### 4 6124 #### LAB [address] [place] [id number] Jack Mendoza M.D. [id number] Creatinine [Mass/Vol] 0.52 mg/dL Normal 0.50-1.30 [facility] Comment on above: Order Comment: [facility] has implemented the eGFR calculation approach that does not have a coefficient for race that conforms to the NKF-ASN Task Force Recommendations. Performed By: #### 4 6124 #### LAB [address] [place], [place] [address] Jack Mendoza M.D. [id number] EGFR 117 mL/min/1.73 m2 Normal >=60 [facility] Comment on above: Order Comment: [facility] has implemented the eGFR calculation approach that does not have a coefficient for race that conforms to the NKF-ASN Task Force Recommendations. Result Comment: Ashley mated GFR was calculated using the 2020 CKD-EPI creatinine equation. Performed By: #### 4 6124 ####[facility] [address] [place] [address] Jack Mendoza M.D. [id number] Glucose [Mass/Vol] 143 mg/dL High 65-99 [facility] Comment on above: Order Comment: [facility] has implemented the eGFR calculation approach that does not have a coefficient for race that conforms to the NKF-ASN Task Force Recommendations. Performed By: #### 4 6124 ####[facility] [address] [place] [address] Jack Mendoza M.D. [id number] HCO3 (Bld) [Moles/Vol] 29 mmol/L Normal 21-32 [facility] Comment on above: Order Comment: [facility] has implemented the eGFR calculation approach that does not have a coefficient for race that conforms to the NKF-ASN Task Force Recommendations. Performed By: #### 4 6124 #### LAB [address] [place] [address] Jack Mendoza M.D. [id number] Potassium [Moles/Vol] 4.3 mmol/L Normal 3.5-5.1 [facility] Comment on above: Order Comment: [facility] has implemented the eGFR calculation approach that does not have a coefficient for race that conforms to the NKF-ASN Task Force Recommendations. Performed By: #### 4 6124 ####[facility] [address] [place] [address] Jack Mendoza M.D. [id number] Sodium [Moles/Vol] 136 mmol/L Normal 135-145 [facility] Comment on above: Order Comment: [facility] has implemented the eGFR calculation approach that does not have a coefficient for race that conforms to the NKF-ASN Task Force Recommendations. Performed By: #### 4 6124 ####[facility] [address] [place] [address] Jack Mendoza M.D. [id number] Urea nitrogen [Mass/Vol] 12 mg/dL Normal 8-25 [facility] Comment on above: Order Comment: [facility] has implemented the eGFR calculation approach that does not have a coefficient for race that conforms to the NKF-ASN Task Force Recommendations. Performed By: #### 4 6124 #### LAB [address] [place], [place] [address] Jack Mendoza M.D. [id number] Urea nitrogen/Creatinine [Mass ratio] 23.1 mg/mg High 10.0-20.0 [facility] Comment on above: Order Comment: [facility] has implemented the eGFR calculation approach that does not have a coefficient for race that conforms to the NKF-ASN Task Force Recommendations. Performed By: #### 4 6124 #### LAB [address] [place], [place] [address] Jack Mendoza M.D. [id number] Basic metabolic 2000 panelon 05-15-2025 Anion gap [Moles/Vol] 11 mmol/L 10 - 20 mmol/L [facility] Calcium [Mass/Vol] 8.2 mg/dL Low 8.4 - 10. 2 mg/dL [facility] Chloride [Moles/Vol] 100 mmol/L 98 - 10 8 mmol/L [facility] Creatinine [Mass/Vol] 0.52 mg/dL 0.50 - 1.30 mg/dL [facility] GFR/1.73 sq M.predicted CKD-EPI (S/P/Bld) [Vol rate/Area] 117 - PINF [facility] Comment on above: Estimated GFR was ca lculated using the 2020 CKD-EPI creatinine equation. Glucose [Mass/Vol] 143 mg/dL High 65 - 99 mg/dL [facility] HCO3 [Moles/Vol] 29 mmol/L 21 - 32 mmol/L [facility] Interpretation and review of laboratory results Abnormal [facility] Potassium [Moles/Vol] 4.3 mmol/L 3.5 - 5.1 mmol/L [facility] Sodium [Moles/Vol] 136 mmol/L 135 - 145 mmol/L [facility] Urea nitrogen [Mass/Vol] 12 mg/dL 8 - 25 mg/dL [facility] Urea nitrogen/Creatinine [Mass ratio] 23.1 mg/mg High 10.0 - 20.0 [facility] y Services has implemented the eGFR calculation approach that does not have a coefficient for race that conforms to the NKF-ASN Task Force Recommendations. [facility] CBCon 05-15-2025 AUTO NRBC 0.0 % Normal [facility] Comment on above: Performed By: #### 4 [id number] #### LAB [address] [place] [address] Jack Mendoza M.D. [id number] AUTO NRBC ABS COUNT 0.00 K/mcL Normal 0.00-0.00 [facility] Comment on above: Performed By: #### 4 [id number] ####[facility] [address] [place] [address] Jack Mendoza M.D. [id number] Erythrocyte distribution width (RBC) [Ratio] 15.8 % High 11.6-14.8 [facility] Comment on above: Performed By: #### 4 [id number] ####[facility] [address] [place] [address] Jack Mendoza M.D. [id number] Hematocrit (Bld) [Volume fraction] 34.7 % Low 41.0-53.0 [facility] Comment on above: Performed By: #### 4 [id number] #### LAB [address] [place] [address] Jack Mendoza M.D. [id number] Hemoglobin (Bld) [Mass/Vol] 10.4 g/dL Low 13.5-17.5 [facility] Comment on above: Performed By: #### 4 [id number] #### LAB [address] [place] [address] Jack Mendoza M.D. [id number] MCH (RBC) [Entitic mass] 20.8 pg Low 26.0-34.0 [facility] Comment on above: Performed By: #### 4 [id number] #### LAB [address] [place] [address] Jack Mendoza M.D. [id number] MCV (RBC) [Entitic vol] 69.5 fL Low 80.0-100.0 [facility] Comment on above: Performed By: #### 4 [id number] #### LAB [address] [place] [address] Jack Mendoza M.D. [id number] MEAN CORPUSCULAR HEMOGLOBIN CONC 30.0 g/dL Low 31.0-37.0 [facility] Comment on above: Performed By: #### 4 [id number] #### LAB [address] [place] [address] Jack Mendoza M.D. [id number] Platelet mean volume (Bld) [Entitic vol] 8.8 fL Low 9.4-12.4 [facility] Comment on above: Performed By: #### 4 [id number] #### LAB [address] [place] [address] Jack Mendoza M.D. [id number] Platelets (Bld) [#/Vol] 113 10*3/uL Low 150-400 [facility] Comment on above: Performed By: #### 4 [id number] #### LAB [address] [place] [address] Jack Mendoza M.D. [id number] RBC (Bld) [#/Vol] 4.99 10*6/uL Normal 4.50-5.90 [facility] Comment on above: Performed By: #### 4 [id number] #### LAB [address] [place] [address] Jack Mendoza M.D. [id number] WBC (Bld) [#/Vol] 2.55 10*3/uL Low 4.50-11.00 [facility] Comment on above: Performed By: #### 4 [id number] #### LAB [address] [place] [address] Jack Mendoza M.D. [id number] CBC panel Auto (Bld)on 05-15 Erythrocyte distribution width (RBC) [Entitic vol] 15.8 % High 11.6 - 14.8 % [facility] Hematocrit (Bld) [Volume fraction] 34.7 % Low 41.0 - 53.0 % [facility] Hemoglobin (Bld) [Mass/Vol] 10.4 g/dL Low 13.5 - 17.5 g/dL [facility] Interpretation and review of laboratory results Abnormal [facility] MCH (RBC) [Entitic mass] 20.8 pg Low 26.0 - 34.0 pg [facility] MCHC (RBC) [Mass/Vol] 30 g/dL Low 31.0 - 37.0 g/dL [facility] MCV (RBC) [Entitic vol] 69.5 fL Low 80.0 - 100.0 fL [facility] Nucleated RBC (Bld) [#/Vol] 0 10*3/uL [facility] Nucleated RBC/100 WBC (Bld) [Ratio] 0 % [facility] Platelet mean volume (Bld) [Entitic vol] 8.8 fL Low 9.4 - 12.4 fL [facility] Platelets (Bld) [#/Vol] 113 10*3/uL Low [facility] RBC (Bld) [#/Vol] 4.99 10*6/uL [facility] WBC (Bld) [#/Vol] 2.55 10*3/uL Low [facility] Gl[facility] (Bld) [Mass/Vol]on 0 05-15-2025 Glucose [Mass/Vol] 186 mg/dL High 65 - 99 mg/dL [facility] Interpretation and review of laboratory results Abnormal [facility] Glucose [Mass/Vol] 135 mg/dL High 65 - 99 mg/dL [facility] Interpretation and review of laboratory results Abnormal [facility] Glucose [Mass/Vol] 124 mg/dL High 65 - 99 mg/dL [facility] Interpretation and review of laboratory results Abnormal [facility] Glucose [Mass/Vol] 127 mg/dL High 65 - 99 mg/dL [facility] Interpretation and review of laboratory results Abnormal [facility] MAGNESIUM LEVELon 05-15-2025 Magnesium [Mass/Vol] 1.9 mg/dL Normal 1.6-2.4 [facility] Comment on above: Performed By: #### 4 [id number] #### LAB [address] [place], [place] [address] Jack Mendoza M.D. [id number] Magnesium Levelon 05-15-2025 Magnesium [Mass/Vol] 1.9 mg/dL 1.6 - 2 .4 mg/dL [facility] Magnesium [Mass/Vol]on 05-15 Interpretation and review of laboratory results Normal [facility] No Panel Informationon 05-15 [facility] POC GLUCOSE - [facility] 025 Glucose [Mass/Vol] 186 mg/dL High 65-99 [facility] Glucose [Mass/Vol] 135 mg/dL High 65-99 [facility] Glucose [Mass/Vol] 124 mg/dL High 65-99 [facility] Glucose [Mass/Vol] 127 mg/dL High 65- [facility] VANCOMYCIN LEVEL, RANDOMon 0 - VANCOMYCIN RANDOM 23.6 mcg/mL Normal [facility] Comment on above: Order Comment: As of 05/2022 vancomycin dosing for [facility] inpatients will be done by Bayesian dosing software rather than off traditional trough values. Please contact the site specific inpatient pharmacy before making dose changes off of trough values alone for admitted patients.No established reference range. Performed By: #### 4 [id number] #### LAB [address] [place], [place] [address] Jack Mendoza M.D. [id number] Vancomycin Level, Randomon 0 05-15-2025 Vancomycin [Mass/Vol] 23.6 mcg/mL [facility] Vancomycin [Mass/Vol]on 04-23 As of 05/2022 vancom ycin dosing for [facility] inpatients will be done by Bayesian dosing software rather than off traditional trough values. Please contact the site specific inpatient pharmacy before making dose changes off of trough values alone for admitted patients. No established reference range. [facility] BASIC METABOLIC PANELon 04-23 Anion gap [Moles/Vol] 13 mmol/L Normal 10- [facility] Comment on above: Order Comment: [facility] has implemented the eGFR calculation approach that does not have a coefficient for race that conforms to the NKF-ASN Task Force Recommendations. Performed By: #### 4 [id number] ####[facility] [address] [place], [place] [address] Jack Mendoza M.D. [id number] Calcium [Mass/Vol] 8.1 mg/dL Low 8.4-10.2 [facility] Comment on above: Order Comment: [facility] has implemented the eGFR calculation approach that does not have a coefficient for race that conforms to the NKF-ASN Task Force Recommendations. Performed By: #### 4 [id number] ####[facility] [address] [place], [place] [address] Jack Mendoza M.D. [id number] Chloride [Moles/Vol] 99 mmol/L Normal 98-108 [facility] Comment on above: Order Comment: [facility] has implemented the eGFR calculation approach that does not have a coefficient for race that conforms to the NKF-ASN Task Force Recommendations. Performed By: #### 4 [id number] #### LAB [address] [place] [address] Jack Mendoza M.D. [id number] Creatinine [Mass/Vol] 0.57 mg/dL Normal 0.50-1.30 [facility] Comment on above: Order Comment: [facility] has implemented the eGFR calculation approach that does not have a coefficient for race that conforms to the NKF-ASN Task Force Recommendations. Performed By: #### 4 [id number] #### LAB [address] [place] [address] Jack Mendoza M.D. [id number] EGFR 114 mL/min/1.73 m2 Normal >=60 [facility] Comment on above: Order Comment: [facility] has implemented the eGFR calculation approach that does not have a coefficient for race that conforms to the NKF-ASN Task Force Recommendations. Result Comment: Ashley mated GFR was calculated using the 2020 CKD-EPI creatinine equation. Performed By: #### 4 [id number] #### LAB [address] [place] [address] Jack Mendoza M.D. [id number] Glucose [Mass/Vol] 170 mg/dL High 65-99 [facility] Comment on above: Order Comment: [facility] has implemented the eGFR calculation approach that does not have a coefficient for race that conforms to the NKF-ASN Task Force Recommendations. Performed By: #### 4 [id number] #### LAB [address] [place] [address] Jack Mendoza M.D. [id number] HCO3 (Bld) [Moles/Vol] 26 mmol/L Normal 21-32 [facility] Comment on above: Order Comment: [facility] has implemented the eGFR calculation approach that does not have a coefficient for race that conforms to the NKF-ASN Task Force Recommendations. Performed By: #### 4 6124 #### LAB [address] [place] [address] Jack Mendoza M.D. [id number] Potassium [Moles/Vol] 4.1 mmol/L Normal 3.5-5.1 [facility] Comment on above: Order Comment: [facility] has implemented the eGFR calculation approach that does not have a coefficient for race that conforms to the NKF-ASN Task Force Recommendations. Performed By: #### 4 [id number] #### LAB [address] [place] [address] Jack Mendoza M.D. [id number] Sodium [Moles/Vol] 134 mmol/L Low 135-145 [facility] Comment on above: Order Comment: [facility] has implemented the eGFR calculation approach that does not have a coefficient for race that conforms to the NKF-ASN Task Force Recommendations. Performed By: #### 4 [id number] #### LAB [address] [place] [address] Jack Mendoza M.D. [id number] Urea nitrogen [Mass/Vol] 13 mg/dL Normal 8-25 [facility] Comment on above: Order Comment: [facility] has implemented the eGFR calculation approach that does not have a coefficient for race that conforms to the NKF-ASN Task Force Recommendations. Performed By: #### 4 [id number] #### LAB [address] [place] [address] Jack Mendoza M.D. [id number] Urea nitrogen/Creatinine [Mass ratio] 22.8 mg/mg High 10.0-20.0 [facility] Comment on above: Order Comment: [facility] has implemented the eGFR calculation approach that does not have a coefficient for race that conforms to the NKF-ASN Task Force Recommendations. Performed By: #### 4 [id number] #### LAB [address] [place] [address] Jack Mendoza M.D. [id number] Basic metabolic 2000 panelon 05-14-2025 Anion gap [Moles/Vol] 13 mmol/L 10 - 20 mmol/L [facility] Calcium [Mass/Vol] 8.1 mg/dL Low 8.4 - 10. 2 mg/dL [facility] Chloride [Moles/Vol] 99 mmol/L 98 - 10 8 mmol/L [facility] Creatinine [Mass/Vol] 0.57 mg/dL 0.50 - 1.30 mg/dL [facility] GFR/1.73 sq M.predicted CKD-EPI (S/P/Bld) [Vol rate/Area] 114 - PINF [facility] Comment on above: Estimated GFR was ca lculated using the 2020 CKD-EPI creatinine equation. Glucose [Mass/Vol] 170 mg/dL High 65 - 99 mg/dL [facility] HCO3 [Moles/Vol] 26 mmol/L 21 - 32 mmol/L [facility] Interpretation and review of laboratory results Abnormal [facility] Potassium [Moles/Vol] 4.1 mmol/L 3.5 - 5.1 mmol/L [facility] Sodium [Moles/Vol] 134 mmol/L Low 135 - 145 mmol/L [facility] Urea nitrogen [Mass/Vol] 13 mg/dL 8 - 25 mg/dL [facility] Urea nitrogen/Creatinine [Mass ratio] 22.8 mg/mg High 10.0 - 20.0 [facility] has implemented the eGFR calculation approach that does not have a coefficient for race that conforms to the NKF-ASN Task Force Recommendations. [facility] CBCon 05-14-2025 AUTO NRBC 0.0 % Normal [facility] Comment on above: Performed By: #### 4 [id number] ####[facility] [address] [place], [place] [address] Jack Mendoza M.D. [id number] AUTO NRBC ABS COUNT 0.00 K/mcL Normal 0.00-0.00 [facility] Comment on above: Performed By: #### 4 [id number] ####[facility] [address] [place], [place] [address] Jack Mendoza M.D. [id number] Erythrocyte distribution width (RBC) [Ratio] 15.5 % High 11.6-14.8 [facility] Comment on above: Performed By: #### 4 [id number] #### LAB [address] [place] [address] Jack Mendoza M.D. [id number] Hematocrit (Bld) [Volume fraction] 35.0 % Low 41.0-53.0 [facility] Comment on above: Performed By: #### 4 [id number] #### LAB [address] [place] [address] Jack Mendoza M.D. [id number] Hemoglobin (Bld) [Mass/Vol] 10.4 g/dL Low 13.5-17.5 [facility] Comment on above: Performed By: #### 4 [id number] #### LAB [address] [place] [address] Jack Mendoza M.D. [id number] MCH (RBC) [Entitic mass] 20.5 pg Low 26.0-34.0 [facility] Comment on above: Performed By: #### 4 [id number] #### LAB [address] [place] [address] Jack Mendoza M.D. [id number] MCV (RBC) [Entitic vol] 68.9 fL Low 80.0-100.0 [facility] Comment on above: Performed By: #### 4 [id number] #### LAB [address] [place] [address] Jack Mendoza M.D. [id number] MEAN CORPUSCULAR HEMOGLOBIN CONC 29.7 g/dL Low 31.0-37.0 [facility] Comment on above: Performed By: #### 4 [id number] #### LAB [address] [place] [address] Jack Mendoza M.D. [id number] Platelets (Bld) [#/Vol] 111 10*3/uL Low 150-400 [facility] Comment on above: Performed By: #### 4 [id number] #### LAB [address] [place] [address] Jack Mendoza M.D. [id number] RBC (Bld) [#/Vol] 5.08 10*6/uL Normal 4.50-5.90 [facility] Comment on above: Performed By: #### 4 [id number] #### LAB [address] [place], [place] [address] Jack Mendoza M.D. [id number] WBC (Bld) [#/Vol] 2.80 10*3/uL Low 4.50-11.00 [facility] Comment on above: Performed By: #### 4 [id number] #### LAB [address], [place] [address] Jack Mendoza M.D. [id number] CBC panel Auto (Bld)on 05-14 Erythrocyte distribution width (RBC) [Entitic vol] 15.5 % High 11.6 - 14.8 % [facility] Hematocrit (Bld) [Volume fraction] 35 % Low 41.0 - 53.0 % [facility] Hemoglobin (Bld) [Mass/Vol] 10.4 g/dL Low 13.5 - 17.5 g/dL [facility] Interpretation and review of laboratory results Abnormal [facility] MCH (RBC) [Entitic mass] 20.5 pg Low 26.0 - 34.0 pg [facility] MCHC (RBC) [Mass/Vol] 29.7 g/dL Low 31.0 - 37.0 g/dL [facility] MCV (RBC) [Entitic vol] 68.9 fL Low 80.0 - 100.0 fL [facility] Nucleated RBC (Bld) [#/Vol] 0 10*3/uL [facility] Nucleated RBC/100 WBC (Bld) [Ratio] 0 % [facility] Platelets (Bld) [#/Vol] 111 10*3/uL Low [facility] RBC (Bld) [#/Vol] 5.08 10*6/uL [facility] WBC (Bld) [#/Vol] 2.8 10*3/uL Low [facility] Glucose (Bld) [Mass/Vol]on 05-14-2025 Glucose [Mass/Vol] 143 mg/dL High 65 - 99 mg/dL [facility] Interpretation and review of laboratory results Abnormal [facility] Glucose [Mass/Vol] 121 mg/dL High 65 - 99 mg/dL [facility] Interpretation and review of laboratory results Abnormal [facility] Glucose [Mass/Vol] 260 mg/dL High 65 - 99 mg/dL [facility] Interpretation and review of laboratory results Abnormal [facility] Glucose [Mass/Vol] 120 mg/dL High 65 - 99 mg/dL [facility] Interpretation and review of laboratory results Abnormal [facility] MAGNESIUM LEVELon 05-14-2025 Magnesium [Mass/Vol] 1.8 mg/dL Normal 1.6-2.4 [facility] Comment on above: Performed By: #### 4 [id number] #### LAB [address] [place], [place] [address] Jack Mendoza M.D. [id number] Magnesium Levelon 05-14-2025 Magnesium [Mass/Vol] 1.8 mg/dL 1.6 - 2 .4 mg/dL [facility] Magnesium [Mass/Vol]on 05-14 Interpretation and review of laboratory results Normal [facility] No Panel Informationon 05-14 [facility] Glucose [Mass/Vol] 143 mg/dL High 65-99 [facility] Glucose [Mass/Vol] 121 mg/dL High 65-99 [facility] Glucose [Mass/Vol] 260 mg/dL High 65-99 [facility] Glucose [Mass/Vol] 120 mg/dL High 65-99 [facility] ALPHA DEFENSINon 05-13-2025 ALPHA DEFENSIN ALPHA DEFENSIN DETECTED Alpha defensin detected suggesting the presence of infection. Additional laboratory studies are recommended. Abnormal [facility] Comment on above: Performed By: #### L [id number] #### LAB [address] [place], [place] [address] Jack Mendoza M.D. [id number] Alpha defensinOrdered By: Marlen Mcintyre on 05-13-2025 Alpha Defensin Detected Abnormal Not Detected [facility] Comment on above: Alpha defensin detec quan suggesting the presence of infection. Additional laboratory studies are recommended. Interpretation and review of laboratory results Abnormal [facility] BASIC METABOLIC PANELon 04-23 Anion gap [Moles/Vol] 12 mmol/L Normal 10-20 [facility] Comment on above: Order Comment: [facility] has implemented the eGFR calculation approach that does not have a coefficient for race that conforms to the NKF-ASN Task Force Recommendations. Performed By: #### 4 [id number] #### LAB [address] [place] [address] Jack Mendoza M.D. [id number] Calcium [Mass/Vol] 8.2 mg/dL Low 8.4-10.2 [facility] Comment on above: Order Comment: [facility] has implemented the eGFR calculation approach that does not have a coefficient for race that conforms to the NKF-ASN Task Force Recommendations. Performed By: #### 4 [id number] #### LAB [address] [place] [address] Jack Mendoza M.D. [id number] Chloride [Moles/Vol] 97 mmol/L Low 98-108 [facility] Comment on above: Order Comment: [facility] has implemented the eGFR calculation approach that does not have a coefficient for race that conforms to the NKF-ASN Task Force Recommendations. Performed By: #### 4 [id number] #### LAB [address] [place] [address] Jack Mendoza M.D. [id number] Creatinine [Mass/Vol] 0.64 mg/dL Normal 0.50-1.30 [facility] Comment on above: Order Comment: [facility] has implemented the eGFR calculation approach that does not have a coefficient for race that conforms to the NKF-ASN Task Force Recommendations. Performed By: #### 4 6124 #### LAB [address] [place] [address] Jack Mendoza M.D. [id number] EGFR 110 mL/min/1.73 m2 Normal >=60 [facility] Comment on above: Order Comment: [facility] has implemented the eGFR calculation approach that does not have a coefficient for race that conforms to the NKF-ASN Task Force Recommendations. Result Comment: Ashley mated GFR was calculated using the 2020 CKD-EPI creatinine equation. Performed By: #### 4 [id number] #### LAB [address] [place] [address] Jack Mendoza M.D. [id number] Glucose [Mass/Vol] 102 mg/dL High 65-99 [facility] Comment on above: Order Comment: [facility] has implemented the eGFR calculation approach that does not have a coefficient for race that conforms to the NKF-ASN Task Force Recommendations. Performed By: #### 4 6124 #### LAB [address] [place] [address] Jack Mendoza M.D. [id number] HCO3 (Bld) [Moles/Vol] 30 mmol/L Normal 21-32 [facility] Comment on above: Order Comment: [facility] has implemented the eGFR calculation approach that does not have a coefficient for race that conforms to the NKF-ASN Task Force Recommendations. Performed By: #### 4 6124 #### LAB [address] [place] [address] Jack Mendoza M.D. [id number] Potassium [Moles/Vol] 3.4 mmol/L Low 3.5-5.1 [facility] Comment on above: Order Comment: [facility] has implemented the eGFR calculation approach that does not have a coefficient for race that conforms to the NKF-ASN Task Force Recommendations. Performed By: #### 4 6124 #### LAB [address] [place] [address] Jack Mendoza M.D. [id number] Sodium [Moles/Vol] 136 mmol/L Normal 135-145 [facility] Comment on above: Order Comment: [facility] has implemented the eGFR calculation approach that does not have a coefficient for race that conforms to the NKF-ASN Task Force Recommendations. Performed By: #### 4 6124 #### LAB [address] [place] [address] Jack Mendoza M.D. [id number] Urea nitrogen [Mass/Vol] 11 mg/dL Normal 8-25 [facility] Comment on above: Order Comment: [facility] has implemented the eGFR calculation approach that does not have a coefficient for race that conforms to the NKF-ASN Task Force Recommendations. Performed By: #### 4 6124 #### LAB [address] [place], [place] [address] Jack Mendoza M.D. [id number] Urea nitrogen/Creatinine [Mass ratio] 17.2 mg/mg Normal 10.0-20.0 [facility] Comment on above: Order Comment: [facility] has implemented the eGFR calculation approach that does not have a coefficient for race that conforms to the NKF-ASN Task Force Recommendations. Performed By: #### 4 6124 #### LAB [address] [place], [place] [address] Jack Mnedoza M.D. [id number] Basic metabolic 2000 panelon 05-13-2025 Anion gap [Moles/Vol] 12 mmol/L 10 - 20 mmol/L [facility] Calcium [Mass/Vol] 8.2 mg/dL Low 8.4 - 10. 2 mg/dL [facility] Chloride [Moles/Vol] 97 mmol/L Low 98 - 10 8 mmol/L [facility] Creatinine [Mass/Vol] 0.64 mg/dL 0.50 - 1.30 mg/dL [facility] GFR/1.73 sq M.predicted CKD-EPI (S/P/Bld) [Vol rate/Area] 110 - PINF [facility] Comment on above: Estimated GFR was ca lculated using the 2020 CKD-EPI creatinine equation. Glucose [Mass/Vol] 102 mg/dL High 65 - 99 mg/dL [facility] HCO3 [Moles/Vol] 30 mmol/L 21 - 32 mmol/L [facility] Interpretation and review of laboratory results Abnormal [facility] Potassium [Moles/Vol] 3.4 mmol/L Low 3.5 - 5.1 mmol/L [facility] Sodium [Moles/Vol] 136 mmol/L 135 - 145 mmol/L [facility] Urea nitrogen [Mass/Vol] 11 mg/dL 8 - 25 mg/dL [facility] Urea nitrogen/Creatinine [Mass ratio] 17.2 mg/mg 10.0 - 20.0 [facility] has implemented the eGFR calculation approach that does not have a coefficient for race that conforms to the NKF-ASN Task Force Recommendations. [facility] CBCon 05-13-2025 AUTO NRBC 0.0 % Normal [facility] Comment on above: Performed By: #### 4 [id number] #### LAB [address] [place] [address] Jack Mendoza M.D. [id number] AUTO NRBC ABS COUNT 0.00 K/mcL Normal 0.00-0.00 [facility] Comment on above: Performed By: #### 4 [id number] #### LAB [address] [place] [address] Jack Mendoza M.D. [id number] Erythrocyte distribution width (RBC) [Ratio] 15.4 % High 11.6-14.8 [facility] Comment on above: Performed By: #### 4 [id number] #### LAB [address] [place] [address] Jack Mendoza M.D. [id number] Hematocrit (Bld) [Volume fraction] 35.3 % Low 41.0-53.0 [facility] Comment on above: Performed By: #### 4 [id number] #### LAB [address] [place] [address] Jack Mendoza M.D. [id number] Hemoglobin (Bld) [Mass/Vol] 10.7 g/dL Low 13.5-17.5 [facility] Comment on above: Performed By: #### 4 [id number] #### LAB [address] [place] [address] Jack Mendoza M.D. [id number] MCH (RBC) [Entitic mass] 20.7 pg Low 26.0-34.0 [facility] Comment on above: Performed By: #### 4 [id number] #### LAB [address] [place] [address] Jack Mendoza M.D. [id number] MCV (RBC) [Entitic vol] 68.4 fL Low 80.0-100.0 [facility] Comment on above: Performed By: #### 4 [id number] #### LAB [address] [place] [address] Jack Mendoza M.D. [id number] MEAN CORPUSCULAR HEMOGLOBIN CONC 30.3 g/dL Low 31.0-37.0 [facility] Comment on above: Performed By: #### 4 [id number] #### LAB [address] [place] [address] Jack Mendoza M.D. [id number] Platelets (Bld) [#/Vol] 115 10*3/uL Low 150-400 [facility] Comment on above: Performed By: #### 4 [id number] #### LAB [address] [place] [address] Jack Mendoza M.D. [id number] RBC (Bld) [#/Vol] 5.16 10*6/uL Normal 4.50-5.90 [facility] Comment on above: Performed By: #### 4 [id number] #### LAB [address] [place] [address] Jack Mendoza M.D. [id number] WBC (Bld) [#/Vol] 2.82 10*3/uL Low 4.50-11.00 [facility] Comment on above: Performed By: #### 4 [id number] #### LAB [address] [place] [address] Jack Mendoza M.D. [id number] CBC panel Auto (Bld)on 05-13 Erythrocyte distribution width (RBC) [Entitic vol] 15.4 % High 11.6 - 14.8 % [facility] Hematocrit (Bld) [Volume fraction] 35.3 % Low 41.0 - 53.0 % [facility] Hemoglobin (Bld) [Mass/Vol] 10.7 g/dL Low 13.5 - 17.5 g/dL [facility] Interpretation and review of laboratory results Abnormal [facility] MCH (RBC) [Entitic mass] 20.7 pg Low 26.0 - 34.0 pg [facility] MCHC (RBC) [Mass/Vol] 30.3 g/dL Low 31.0 - 37.0 g/dL [facility] MCV (RBC) [Entitic vol] 68.4 fL Low 80.0 - 100.0 fL [facility] Nucleated RBC (Bld) [#/Vol] 0 10*3/uL [facility] Nucleated RBC/100 WBC (Bld) [Ratio] 0 % [facility] Platelets (Bld) [#/Vol] 115 10*3/uL Low [facility] RBC (Bld) [#/Vol] 5.16 10*6/uL [facility] WBC (Bld) [#/Vol] 2.82 10*3/uL Low [facility] Glucose (Bld) [Mass/Vol]on 0 05-13-2025 Glucose [Mass/Vol] 180 mg/dL High 65 - 99 mg/dL [facility] Interpretation and review of laboratory results Abnormal [facility] Glucose [Mass/Vol] 97 mg/dL 65 - 99 mg/dL [facility] Interpretation and review of laboratory results Normal [facility] Glucose [Mass/Vol] 102 mg/dL High 65 - 99 mg/dL [facility] Interpretation and review of laboratory results Abnormal [facility] Glucose [Mass/Vol] 100 mg/dL High 65 - 99 mg/dL [facility] Interpretation and review of laboratory results Abnormal [facility] MAGNESIUM LEVELon 05-13-2025 Magnesium [Mass/Vol] 1.7 mg/dL Normal 1.6-2.4 [facility] Comment on above: Performed By: #### 4 [id number] ####[facility] [address] [place], [place] [address] Jack Mendoza M.D. [id number] MRSA DNA Amplified ProbeOrde red By: Brianna Predum on 05-13-2025 MRSA DNA HERMAN+probe Ql (Unsp spec) Not detected Not Detected, MRSA NEGATIVE [facility] MRSA DNA HERMAN+probe Ql (Unsp spec)Ordered By: Brianna Predum on 05-13-2025 Interpretation and review of laboratory results Normal [facility] Magnesium Levelon 05-13-2025 Magnesium [Mass/Vol] 1.7 mg/dL 1.6 - 2 .4 mg/dL [facility] Magnesium [Mass/Vol]on 05-13 Interpretation and review of laboratory results Normal [facility] No Panel Informationon 05-13 [facility] OP NOTEon 05-13-2025 OP NOTE Normal [facility] POC GLUCOSE - [place] 025 Glucose [Mass/Vol] 180 mg/dL High 65-99 [facility] Glucose [Mass/Vol] 97 mg/dL Normal 65-99 [facility] Glucose [Mass/Vol] 102 mg/dL High 65-99 [facility] Glucose [Mass/Vol] 100 mg/dL High 65-99 [facility] SURGICAL SITE AEROBIC AND AN AEROBIC CULTUREon 05-13-2025 SURGICAL SITE AEROBIC AND ANAEROBIC CULTURE CULTURE No Anaerobic Growth after 5 days CORYNEBACTERIUM SPECIES Rare growth Corynebacterium species, not JK GRAM STAIN RESULT Many WBC Many RBC No Organisms Seen Abnormal [facility] Comment on above: Performed By: #### L [id number] ####[facility] [address] [place] [address] Venancio Richardson M.D. [id number] SURGICAL SITE AEROBIC AND ANAEROBIC CULTURE CULTURE No Anaerobic Growth after 5 days CORYNEBACTERIUM SPECIES Rare growth Corynebacterium species, not JK GRAM STAIN RESULT Moderate WBC No Organisms Seen Abnormal [facility] Comment on above: Performed By: #### L [id number] ####[facility] [address] [place] [address] Venancio Richardson M.D. [id number] SURGICAL SITE AEROBIC AND ANAEROBIC CULTURE CULTURE No Growth after 5 days GRAM STAIN RESULT Moderate WBC Many RBC No Organisms Seen Normal [facility] Comment on above: Performed By: #### L [id number] ####[facility] [address] [place], [place] [id number] Venancio Richardson M.D. [id number] SURGICAL SITE AEROBIC AND ANAEROBIC CULTURE CULTURE No Growth after 5 days GRAM STAIN RESULT Few WBC Many RBC No Organisms Seen Normal [facility] Comment on above: Performed By: #### L [id number] ####[facility] [address] [place], [place] [id number] Venancio Richardson M.D. [id number] VANCOMYCIN LEVEL, RANDOMon 0 05-13-2025 VANCOMYCIN RANDOM 23.7 mcg/mL Normal [facility] Comment on above: Order Comment: As of 05/2022 vancomycin dosing for [facility] inpatients will be done by Bayesian dosing software rather than off traditional trough values. Please contact the site specific inpatient pharmacy before making dose changes off of trough values alone for admitted patients.No established reference range. Performed By: #### [id number] #### LAB [address] [place], [place] [address] Jack Mendoza M.D. [id number] Vancomycin Level, Randomon 0 05-13-2025 Vancomycin [Mass/Vol] 23.7 mcg/mL [facility] Vancomycin [Mass/Vol]on 04-23 As of 05/2022 vancom ycin dosing for [facility] inpatients will be done by Bayesian dosing software rather than off traditional trough values. Please contact the site specific inpatient pharmacy before making dose changes off of trough values alone for admitted patients. No established reference range. [facility] BASIC METABOLIC PANELon 04-23 Anion gap [Moles/Vol] 14 mmol/L Normal 10-20 [facility] Comment on above: Order Comment: [facility] has implemented the eGFR calculation approach that does not have a coefficient for race that conforms to the NKF-ASN Task Force Recommendations. Performed By: #### 4 6124 #### LAB [address] [place], [place] [address] Jack Mendoza M.D. [id number] Calcium [Mass/Vol] 8.5 mg/dL Normal 8.4-10.2 [facility] Comment on above: Order Comment: [facility] has implemented the eGFR calculation approach that does not have a coefficient for race that conforms to the NKF-ASN Task Force Recommendations. Performed By: #### 4 6124 #### LAB [address] [place], [place] [address] Jack Mendoza M.D. [id number] Chloride [Moles/Vol] 99 mmol/L Normal 98-108 [facility] Comment on above: Order Comment: [facility] has implemented the eGFR calculation approach that does not have a coefficient for race that conforms to the NKF-ASN Task Force Recommendations. Performed By: #### 4 6124 ####[facility] LAB [address] [place], [place] [address] Jack Mendoza M.D. [id number] Creatinine [Mass/Vol] 0.60 mg/dL Normal 0.50-1.30 [facility] Comment on above: Order Comment: [facility] has implemented the eGFR calculation approach that does not have a coefficient for race that conforms to the NKF-ASN Task Force Recommendations. Performed By: #### 4 6124 #### LAB [address] [place] [address] Jack Mendoza M.D. [id number] EGFR 112 mL/min/1.73 m2 Normal >=60 [facility] Comment on above: Order Comment: [facility] has implemented the eGFR calculation approach that does not have a coefficient for race that conforms to the NKF-ASN Task Force Recommendations. Result Comment: Ashley mated GFR was calculated using the 2020 CKD-EPI creatinine equation. Performed By: #### 4 6124 #### LAB [address] [place] [address] Jack Mendoza M.D. [id number] Glucose [Mass/Vol] 178 mg/dL High 65-99 [facility] Comment on above: Order Comment: [facility] has implemented the eGFR calculation approach that does not have a coefficient for race that conforms to the NKF-ASN Task Force Recommendations. Performed By: #### 4 6124 #### LAB [address] [place] [address] Jack Mendoza M.D. [id number] HCO3 (Bld) [Moles/Vol] 26 mmol/L Normal 21-32 [facility] Comment on above: Order Comment: [facility] has implemented the eGFR calculation approach that does not have a coefficient for race that conforms to the NKF-ASN Task Force Recommendations. Performed By: #### 4 6124 #### LAB [address] [place] [address] Jack Mendoza M.D. [id number] Potassium [Moles/Vol] 3.6 mmol/L Normal 3.5-5.1 [facility] Comment on above: Order Comment: [facility] has implemented the eGFR calculation approach that does not have a coefficient for race that conforms to the NKF-ASN Task Force Recommendations. Performed By: #### 4 6124 #### LAB [address] [place], [place] [address] Jack Mendoza M.D. [id number] Sodium [Moles/Vol] 135 mmol/L Normal 135-145 [facility] Comment on above: Order Comment: [facility] has implemented the eGFR calculation approach that does not have a coefficient for race that conforms to the NKF-ASN Task Force Recommendations. Performed By: #### 4 6124 #### LAB [address] [place] [address] Jack Mendoza M.D. [id number] Urea nitrogen [Mass/Vol] 12 mg/dL Normal 8-25 [facility] Comment on above: Order Comment: [facility] has implemented the eGFR calculation approach that does not have a coefficient for race that conforms to the NKF-ASN Task Force Recommendations. Performed By: #### 4 6124 #### LAB [address] [place] [address] Jack Mendoza M.D. [id number] Urea nitrogen/Creatinine [Mass ratio] 20.0 mg/mg Normal 10.0-20.0 [facility] Comment on above: Order Comment: [facility] has implemented the eGFR calculation approach that does not have a coefficient for race that conforms to the NKF-ASN Task Force Recommendations. Performed By: #### 4 6124 #### LAB [address] [place] [address] Jack Mendoza M.D. [id number] Basic metabolic 2000 panelon 05-12-2025 Anion gap [Moles/Vol] 14 mmol/L 10 - 20 mmol/L [facility] Calcium [Mass/Vol] 8.5 mg/dL 8.4 - 10. 2 mg/dL [facility] Chloride [Moles/Vol] 99 mmol/L 98 - 10 8 mmol/L [facility] Creatinine [Mass/Vol] 0.6 mg/dL 0.50 - 1.30 mg/dL [facility] GFR/1.73 sq M.predicted CKD-EPI (S/P/Bld) [Vol rate/Area] 112 - PINF [facility] Comment on above: Estimated GFR was ca lculated using the 2020 CKD-EPI creatinine equation. Glucose [Mass/Vol] 178 mg/dL High 65 - 99 mg/dL [facility] HCO3 [Moles/Vol] 26 mmol/L 21 - 32 mmol/L [facility] Interpretation and review of laboratory results Abnormal [facility] Potassium [Moles/Vol] 3.6 mmol/L 3.5 - 5.1 mmol/L [facility] Sodium [Moles/Vol] 135 mmol/L 135 - 145 mmol/L [facility] Urea nitrogen [Mass/Vol] 12 mg/dL 8 - 25 mg/dL [facility] Urea nitrogen/Creatinine [Mass ratio] 20 mg/mg 10.0 - 20.0 [facility] has implemented the eGFR calculation approach that does not have a coefficient for race that conforms to the NKF-ASN Task Force Recommendations. [facility] CBC Auto Differentialon 04-23 Basophils (Bld) [#/Vol] 0.01 10*3/uL [facility] Basophils/100 WBC (Bld) 0.3 % [facility] Eosinophils (Bld) [#/Vol] 0.1 10*3/uL [facility] Eosinophils/100 WBC (Bld) 3.4 % [facility] Erythrocyte distribution width (RBC) [Entitic vol] 15.7 % High 11.6 - 14.8 % [facility] Hematocrit (Bld) [Volume fraction] 36 % Low 41.0 - 53.0 % [facility] Hemoglobin (Bld) [Mass/Vol] 10.9 g/dL Low 13.5 - 17.5 g/dL [facility] Immature granulocytes (Bld) [#/Vol] 0.01 10*3/uL [facility] Immature granulocytes/100 WBC (Bld) 0.3 % [facility] Comment on above: The IG parameter is the percentage of metamyelocytes, myelocytes and promyelocytes. An immature granulocyte count (IG) of 1% or more suggests the possibility of infection, an IG count of 3% is very likely related to an infection. Interpretation and review of laboratory results Abnormal [facility] Lymphocytes (Bld) [#/Vol] 0.63 10*3/uL Low [facility] Lymphocytes/100 WBC (Bld) 21.3 % [facility] MCH (RBC) [Entitic mass] 21 pg Low 26.0 - 34.0 pg [facility] MCHC (RBC) [Mass/Vol] 30.3 g/dL Low 31.0 - 37.0 g/dL [facility] MCV (RBC) [Entitic vol] 69.4 fL Low 80.0 - 100.0 fL [facility] Monocytes (Bld) [#/Vol] 0.26 10*3/uL Low [facility] Monocytes/100 WBC (Bld) 8.8 % [facility] Neutrophils (Bld) [#/Vol] 1.95 10*3/uL [facility] Neutrophils/100 WBC (Bld) 65.9 % [facility] Nucleated RBC (Bld) [#/Vol] 0 10*3/uL [facility] Nucleated RBC/100 WBC (Bld) [Ratio] 0 % [facility] Platelets (Bld) [#/Vol] 117 10*3/uL Low [facility] RBC (Bld) [#/Vol] 5.19 10*6/uL [facility] WBC (Bld) [#/Vol] 2.96 10*3/uL Low [facility] WITH AUTO DIFFERENTIALon 05-12-2025 AUTO NRBC 0.0 % [facility] Comment on above: Performed By: #### L [id number] #### LAB [address] [place] [address] Jack Mendoza M.D. [id number] AUTO NRBC ABS COUNT 0.00 K/mcL Normal 0.00-0.00 [facility] Comment on above: Performed By: #### L [id number] #### LAB [address] [place], [place] [address] Jack Mendoza M.D. [id number] BASOPHILS ABSOLUTE COUNT 0.01 K/mcL Normal 0.00-0.30 [facility] Comment on above: Performed By: #### L [id number] #### LAB [address] [place], [place] [address] Jack Mendoza M.D. [id number] Basophils/100 WBC (Bld) 0.3 % [facility] Comment on above: Performed By: #### L [id number] #### LAB [address] [place] [address] Jack Mendoza M.D. [id number] Eosinophils (Bld) [#/Vol] 0.10 10*3/uL Normal 0.00-0.50 [facility] Comment on above: Performed By: #### L [id number] #### LAB [address] [place] [address] Jack Mendoza M.D. [id number] Eosinophils/100 WBC (Bld) 3.4 % Normal [facility] Comment on above: Performed By: #### L [id number] #### LAB [address] [place] [address] Jack Mendoza M.D. [id number] Erythrocyte distribution width (RBC) [Ratio] 15.7 % High 11.6-14.8 [facility] Comment on above: Performed By: #### L [id number] #### LAB [address] [place] [address] Jack Mendoza M.D. [id number] Hematocrit (Bld) [Volume fraction] 36.0 % Low 41.0-53.0 [facility] Comment on above: Performed By: #### L [id number] #### LAB [address] [place] [address] Jack Mendoza M.D. [id number] Hemoglobin (Bld) [Mass/Vol] 10.9 g/dL Low 13.5-17.5 [facility] Comment on above: Performed By: #### L [id number] #### LAB [address] [place] [address] Jack Mendoza M.D. [id number] IG ABSOLUTE 0.01 K/mcL Normal 0.00-0.30 [facility] Comment on above: Performed By: #### L [id number] #### LAB [address] [place] [address] Jack Mendoza M.D. [id number] IG PERCENT 0.30 % Normal [facility] Comment on above: Result Comment: The IG parameter is the percentage of metamyelocytes, myelocytes and promyelocytes. An immature granulocyte count (IG) of 1% or more suggests the possibility of infection, an IG count of 3% is very likely related to an infection. Performed By: #### L [id number] #### LAB [address] [place] [address] Jack Mendoza M.D. [id number] Lymphocytes (Bld) [#/Vol] 0.63 10*3/uL Low 0.90-4.00 [facility] Comment on above: Performed By: #### L [id number] #### LAB [address] [place] [address] Jack Mendoza M.D. [id number] Lymphocytes/100 WBC (Bld) 21.3 % Normal [facility] Comment on above: Performed By: #### L [id number] #### LAB [address] [place] [address] Jack Mendoza M.D. [id number] MCH (RBC) [Entitic mass] 21.0 pg Low 26.0-34.0 [facility] Comment on above: Performed By: #### L [id number] #### LAB [address] [place] [address] Jack Mendoza M.D. [id number] MCV (RBC) [Entitic vol] 69.4 fL Low 80.0-100.0 [facility] Comment on above: Performed By: #### L [id number] #### LAB [address] [place] [address] Jack Mendoza M.D. [id number] MEAN CORPUSCULAR HEMOGLOBIN CONC 30.3 g/dL Low 31.0-37.0 [facility] Comment on above: Performed By: #### L [id number] ####[facility] LAB [address] [place] [address] Jack Mendoza M.D. [id number] Monocytes (Bld) [#/Vol] 0.26 10*3/uL Low 0.30-0.90 [facility] Comment on above: Performed By: #### L [id number] #### LAB [address] [place] [address] Jack Mendoza M.D. [id number] Monocytes/100 WBC (Bld) 8.8 % Normal [facility] Comment on above: Performed By: #### L [id number] #### LAB [address] [place] [address] Jack Mendoza M.D. [id number] NEUTROPHILS ABSOLUTE COUNT 1.95 K/mcL Normal 1.70-7.00 [facility] Comment on above: Performed By: #### L [id number] ####[facility] [address] [place] [address] Jack Mendoza M.D. [id number] Neutrophils/100 WBC (Bld) 65.9 % Normal [facility] Comment on above: Performed By: #### L [id number] ####[facility] [address] [place] [address] Jack Mendoza M.D. [id number] Platelets (Bld) [#/Vol] 117 10*3/uL Low 150-400 [facility] Comment on above: Performed By: #### L [id number] ####[facility] [address] [place] [address] Jack Mendoza M.D. [id number] RBC (Bld) [#/Vol] 5.19 10*6/uL Normal 4.50-5.90 [facility] Comment on above: Performed By: #### L [id number] ####[facility] [address] [place] [address] Jack Mendoza M.D. [id number] WBC (Bld) [#/Vol] 2.96 10*3/uL Low 4.50-11.00 [facility] Comment on above: Performed By: #### L [id number] #### LAB [address] [place] [address] Jack Mendoza M.D. [id number] CONSULTon 05-12-2025 CONSULT Normal [facility] DRUGS OF ABUSE SCREEN, URINE on 05-12-2025 AMPHETAMINE SCREEN, URINE Not detected Normal None Detected [facility] Comment on above: Order Comment: Scree n results should be used for treatment purposes only.Specimen will be kept for 2 weeks, if the sample is adequate. Confirmation testing can be initiated by calling the lab within 2 weeks. Result Comment: Urin e Amphetamine Cutoff: < 1000 ng/mL = None Detected Performed By: #### 4 6965 ####[facility] [address] [place] [address] Jack Mendoza M.D. [id number] BARBITURATE SCREEN URINE Not detected Normal None Detected [facility] Comment on above: Order Comment: Scree n results should be used for treatment purposes only.Specimen will be kept for 2 weeks, if the sample is adequate. Confirmation testing can be initiated by calling the lab within 2 weeks. Result Comment: Urin e Barbiturates Cutoff: < 200 ng/mL = None Detected Performed By: #### 4 6965 ####[facility] [address] [place] [address] Jack Mendoza M.D. [id number] BENZODIAZEPINE SCREEN, URINE Not detected Normal None Detected [facility] Comment on above: Order Comment: Scree n results should be used for treatment purposes only.Specimen will be kept for 2 weeks, if the sample is adequate. Confirmation testing can be initiated by calling the lab within 2 weeks. Result Comment: Urin e Benzodiazepine Cutoff: < 200 ng/mL = None Detected Performed By: #### 4 6965 ####[facility] [address] [place] [address] Jack Mendoza M.D. [id number] BUPRENORPHINE, URINE Positive Abnormal None Detected [facility] Comment on above: Order Comment: Scree n results should be used for treatment purposes only.Specimen will be kept for 2 weeks, if the sample is adequate. Confirmation testing can be initiated by calling the lab within 2 weeks. Result Comment: Urin e Buprenorphine Cutoff: < 5 ng/mL = None Detected Performed By: #### 4 6965 ####[facility] [address] [place] [address] Jack Mendoza M.D. [id number] CANNABINOID SCREEN URINE Not detected Normal None Detected [facility] Comment on above: Order Comment: Scree n results should be used for treatment purposes only.Specimen will be kept for 2 weeks, if the sample is adequate. Confirmation testing can be initiated by calling the lab within 2 weeks. Result Comment: Urin e Cannabinoids Cutoff: < 50 ng/mL = None Detected Performed By: #### 4 6965 ####[facility] [address] [place] [address] Jack Mendoza M.D. [id number] COCAINE, SCREEN URINE Positive Abnormal None Detected [facility] Comment on above: Order Comment: Scree n results should be used for treatment purposes only.Specimen will be kept for 2 weeks, if the sample is adequate. Confirmation testing can be initiated by calling the lab within 2 weeks. Result Comment: Urin e Cocaine Cutoff: < 300 ng/mL = None Detected Performed By: #### 4 6965 ####[facility] [address] [place] [address] Jack Mendoza M.D. [id number] FENTANYL, URINE Not detected Normal None Detected [facility] Comment on above: Order Comment: Scree n results should be used for treatment purposes only.Specimen will be kept for 2 weeks, if the sample is adequate. Confirmation testing can be initiated by calling the lab within 2 weeks. Result Comment: Urin e Fentanyl Cutoff: < 1 ng/mL = None Detected Performed By: #### 4 6965 ####[facility] [address] [place] [address] Jack Mendoza M.D. [id number] METHADONE SCREEN, URINE Not detected Normal None Detected [facility] Comment on above: Order Comment: Scree n results should be used for treatment purposes only.Specimen will be kept for 2 weeks, if the sample is adequate. Confirmation testing can be initiated by calling the lab within 2 weeks. Result Comment: Urin e Methadone Cutoff: < 300 ng/mL = None Detected Performed By: #### 4 6965 ####[facility] [address] [place] [address] Jack Mendoza M.D. [id number] OPIATE SCREEN URINE Not detected Normal None Detected [facility] Comment on above: Order Comment: Scree n results should be used for treatment purposes only.Specimen will be kept for 2 weeks, if the sample is adequate. Confirmation testing can be initiated by calling the lab within 2 weeks. Result Comment: Urin e Opiates Cutoff: < 300 ng/mL = None Detected Performed By: #### 4 6965 ####[facility] [address] [place], [place] [address] Jack Mendoza M.D. [id number] OXYCODONE SCREEN, URINE Positive Abnormal None Detected [facility] Comment on above: Order Comment: Scree n results should be used for treatment purposes only.Specimen will be kept for 2 weeks, if the sample is adequate. Confirmation testing can be initiated by calling the lab within 2 weeks. Result Comment: Urin e Oxycodone Cutoff: < 100 ng/mL = None Detected Performed By: #### 4 6965 ####[facility] [address] [place], [place] [address] Jack Mendoza M.D. [id number] Drugs of Abuse Screen, Urine Ordered By: Neeru Calvert on 05-12-2025 Amphetamines Ql (U) Not detected None Detected [facility] Comment on above: Urine Amphetamine Cu toff: < 1000 ng/mL = None Detected Barbiturates Screen Ql (U) Not detected None Detected [facility] Comment on above: Urine Barbiturates C utoff: < 200 ng/mL = None Detected Benzodiazepines Ql (U) Not detected None Detected [facility] Comment on above: Urine Benzodiazepine Cutoff: < 200 ng/mL = None Detected Buprenorphine Ql (U) Positive Abnormal None Detected [facility] Comment on above: Urine Buprenorphine Cutoff: < 5 ng/mL = None Detected Cannabinoids Screen Ql (U) Not detected None Detected [facility] Comment on above: Urine Cannabinoids C utoff: < 50 ng/mL = None Detected Cocaine Ql (U) Positive Abnormal None Detected [facility] Comment on above: Urine Cocaine Cutoff : < 300 ng/mL = None Detected fentaNYL+Norfentanyl Screen Ql (U) Not detected None Detected [facility] Comment on above: Urine Fentanyl Cutof f: < 1 ng/mL = None Detected Interpretation and review of laboratory results Abnormal [facility] Methadone Screen Ql (U) Not detected None Detected [facility] Comment on above: Urine Methadone Cuto ff: < 300 ng/mL = None Detected Opiates Screen Ql (U) Not detected None Detected [facility] Comment on above: Urine Opiates Cutoff : < 300 ng/mL = None Detected oxyCODONE Ql (U) Positive Abnormal None Detected [facility] Comment on above: Urine Oxycodone Cuto ff: < 100 ng/mL = None Detected Screen results shoul d be used for treatment purposes only. Specimen will be kept for 2 weeks, if the sample is adequate. Confirmation testing can be initiated by calling the lab within 2 weeks. [facility] ED Prov Noteon 05-12-2025 ED Prov Note Normal [facility] Glucose (Bld) [Mass/Vol]on 0 05-12-2025 Glucose [Mass/Vol] 179 mg/dL High 65 - 99 mg/dL [facility] Interpretation and review of laboratory results Abnormal [facility] Glucose [Mass/Vol] 120 mg/dL High 65 - 99 mg/dL [facility] Interpretation and review of laboratory results Abnormal [facility] Glucose [Mass/Vol] 111 mg/dL High 65 - 99 mg/dL [facility] Interpretation and review of laboratory results Abnormal [facility] Glucose [Mass/Vol] 99 mg/dL 65 - 99 mg/dL [facility] Interpretation and review of laboratory results Normal [facility] H AND Mike 05-12-2025 H AND P Normal [facility] MAGNESIUM LEVELon 05-12-2025 Magnesium [Mass/Vol] 1.8 mg/dL Normal 1.6-2.4 [facility] Comment on above: Performed By: #### 4 6109 #### LAB [address] [place] [address] Jack Mendoza M.D. [id number] MRSA DNA AMPLIFIED PROBEon 0 05-12-2025 MRSA DNA AMPLIFIED PROBE Not detected Normal Not Detected, MRSA NEGATIVE [facility] Comment on above: Performed By: #### 4 8061 ####[facility] [address] [place], [place] [address] Venancio Richardson M.D. [id number] Magnesium Levelon 05-12-2025 Magnesium [Mass/Vol] 1.8 mg/dL 1.6 - 2 .4 mg/dL [facility] NT PRO BNPon 05-12-2025 Natriuretic peptide B (Bld) [Mass/Vol] 91 pg/mL Normal 0-300 [facility] Comment on above: Order Comment: Pride Study Cut-offsRule In:< /= 50 Years >450 pg/mL51 Years - 75 Years >900 pg/mL76 Years - 99 Years >1800 pg/mLRule Out:All patients <300 pg/mL Performed By: #### 4 7395 #### [facility] [address] [facility] [place] [address] Jack Mendoza M.D. [id number] NT Pro BNPon 05-12-2025 Natriuretic peptide.B prohormone N-Terminal [Mass/Vol] 91 pg/mL 0 - 300 pg/mL [facility] Natriuretic peptide.B prohor randi N-Terminal [Mass/Vol]on 05-12-2025 [employer] Study Cut-offs Rule In: < /= 50 Years >450 pg/mL 51 Years - 75 Years >900 pg/mL 76 Years - 99 Years >1800 pg/mL Rule Out: All patients <300 pg/mL [facility] No Panel Informationon 05-12 Interpretation and review of laboratory results Normal [facility] POC GLUCOSE - [facility] 025 Glucose [Mass/Vol] 179 mg/dL High 65-99 [facility] Glucose [Mass/Vol] 120 mg/dL High 65-99 [facility] Glucose [Mass/Vol] 111 mg/dL High 65-99 [facility] Glucose [Mass/Vol] 99 mg/dL Normal 65-99 [facility] WOUND AEROBIC AND ANAEROBIC CULTUREon 05-12-2025 WOUND AEROBIC AND ANAEROBIC CULTURE CULTURE No Anaerobic Growth after 5 days CORYNEBACTERIUM SPECIES Few Growth (4-10 colonies per plate) Corynebacterium species, not JK GRAM STAIN RESULT Many WBC Many RBC Few Gram Negative Bacilli Few Gram Positive Bacilli Abnormal [facility] Comment on above: Performed By: #### 4 4287 ####[facility] [address] [place], [place] [id number] Venancio Richardson M.D. [id number] BLOOD CULTURE AEROBIC/ANAERO BICon 05-11-2025 BLOOD CULTURE AEROBIC/ANAEROBIC BLOOD CULTURE No Growth after 5 days Normal [facility] Comment on above: Performed By: #### 4 4014 ####[facility] [address] [place] [address] Venancio Richardson M.D. [id number] CBC Auto Differentialon 04-23 Erythrocyte distribution width (RBC) [Entitic vol] 17.2 % High 11.6 - 14.8 % [facility] Hematocrit (Bld) [Volume fraction] 38.9 % Low 41.0 - 53.0 % [facility] Hemoglobin (Bld) [Mass/Vol] 11.5 g/dL Low 13.5 - 17.5 g/dL [facility] MCH (RBC) [Entitic mass] 21.1 pg Low 26.0 - 34.0 pg [facility] MCHC (RBC) [Mass/Vol] 29.6 g/dL Low 31.0 - 37.0 g/dL [facility] MCV (RBC) [Entitic vol] 71.2 fL Low 80.0 - 100.0 fL [facility] Nucleated RBC (Bld) [#/Vol] 0 10*3/uL [facility] Nucleated RBC/100 WBC (Bld) [Ratio] 0 % [facility] Platelets (Bld) [#/Vol] 124 10*3/uL Low [facility] RBC (Bld) [#/Vol] 5.46 10*6/uL [facility] WBC (Bld) [#/Vol] 4.46 10*3/uL Low [facility] CBC WITH AUTO DIFFERENTIALon 05-11-2025 AUTO NRBC 0.0 % Normal [facility] Comment on above: Performed By: #### L [id number] #### LAB [address] [place], [place] [address] Jack Mendoza M.D. [id number] AUTO NRBC ABS COUNT 0.00 K/mcL Normal 0.00-0.00 [facility] Comment on above: Performed By: #### L [id number] ####[facility] [address] [place], [place] [address] Jack Mendoza M.D. [id number] Erythrocyte distribution width (RBC) [Ratio] 17.2 % High 11.6-14.8 [facility] Comment on above: Performed By: #### L [id number] #### LAB [address] [place], [place] [address] Jack Mendoza M.D. [id number] Hematocrit (Bld) [Volume fraction] 38.9 % Low 41.0-53.0 [facility] Comment on above: Performed By: #### L [id number] #### LAB [address] [place] [address] Jack Mendoza M.D. [id number] Hemoglobin (Bld) [Mass/Vol] 11.5 g/dL Low 13.5-17.5 [facility] Comment on above: Performed By: #### L [id number] #### LAB [address] [address] Jack Mendoza M.D. [id number] MCH (RBC) [Entitic mass] 21.1 pg Low 26.0-34.0 [facility] Comment on above: Performed By: #### L [id number] #### LAB [address] [address] Jack Mendoza M.D. [id number] MCV (RBC) [Entitic vol] 71.2 fL Low 80.0-100.0 [facility] Comment on above: Performed By: #### L [id number] #### LAB [address] [address] Jack Mendoza M.D. [id number] MEAN CORPUSCULAR HEMOGLOBIN CONC 29.6 g/dL Low 31.0-37.0 [facility] Comment on above: Performed By: #### L [id number] #### LAB [address] [address] Jack Mendoza M.D. [id number] Platelets (Bld) [#/Vol] 124 10*3/uL Low 150-400 [facility] Comment on above: Performed By: #### L [id number] ####[facility] LAB [address] [address] Jack Mendoza M.D. [id number] RBC (Bld) [#/Vol] 5.46 10*6/uL Normal 4.50-5.90 [facility] Comment on above: Performed By: #### L [id number] ####[facility] LAB [address] [place] [address] Jack Mendoza M.D. [id number] WBC (Bld) [#/Vol] 4.46 10*3/uL Low 4.50-11.00 [facility] Comment on above: Performed By: #### L [id number] #### LAB [address] [id number] Jack Mendoza M.D. [id number] CBC and Diff Morphologyon Acanthocytes LM Ql (Bld) Few [facility] Ovalocytes LM Ql (Bld) Moderate [facility] Platelets LM Ql (Bld) Decreased Abnormal Normal [facility] Polychromasia LM Ql (Bld) Few [facility] RBC morphology finding Nom (Bld) See Comment [facility] Comment on above: RBC Indices confirme d with manual peripheral smear review. Target cells LM Ql (Bld) Few [facility] COMPREHENSIVE METABOLIC PANE Ras 05-11-2025 Albumin [Mass/Vol] 3.4 g/dL Normal 3.2-5.2 [facility] Comment on above: Order Comment: [facility] has implemented the eGFR calculation approach that does not have a coefficient for race that conforms to the NKF-ASN Task Force Recommendations. Performed By: #### 4 6126 #### LAB [address] [address] Jack Mendoza M.D. [id number] ALP [Catalytic activity/Vol] 83 U/L Normal 40-150 [facility] Comment on above: Order Comment: [facility] has implemented the eGFR calculation approach that does not have a coefficient for race that conforms to the NKF-ASN Task Force Recommendations. Performed By: #### 4 6126 #### LAB [address] [address] Jack Mendoza M.D. [id number] ALT [Catalytic activity/Vol] 16 U/L Normal 0-50 U/L [facility] Comment on above: Order Comment: [facility] has implemented the eGFR calculation approach that does not have a coefficient for race that conforms to the NKF-ASN Task Force Recommendations. Performed By: #### 4 6126 #### LAB [address] [address] Jack Mendoza M.D. [id number] Anion gap [Moles/Vol] 14 mmol/L Normal 10-20 [facility] Comment on above: Order Comment: [facility] has implemented the eGFR calculation approach that does not have a coefficient for race that conforms to the NKF-ASN Task Force Recommendations. Performed By: #### 4 6126 #### LAB [address] [address] Jack Mendoza M.D. [id number] AST [Catalytic activity/Vol] 31 U/L Normal 0-50 U/L [facility] Comment on above: Order Comment: [facility] has implemented the eGFR calculation approach that does not have a coefficient for race that conforms to the NKF-ASN Task Force Recommendations. Performed By: #### 4 6126 #### LAB [address] [address] Jack Mendoza M.D. [id number] Bilirubin [Mass/Vol] 0.8 mg/dL Normal 0.0-1.3 [facility] Comment on above: Order Comment: [facility] has implemented the eGFR calculation approach that does not have a coefficient for race that conforms to the NKF-ASN Task Force Recommendations. Performed By: #### 4 6126 #### LAB [address] [address] Jack Mendoza M.D. [id number] Calcium [Mass/Vol] 8.8 mg/dL Normal 8.4-10.2 [facility] Comment on above: Order Comment: [facility] has implemented the eGFR calculation approach that does not have a coefficient for race that conforms to the NKF-ASN Task Force Recommendations. Performed By: #### 4 6126 #### LAB [address] [address] Jack Mendoza M.D. [id number] Chloride [Moles/Vol] 98 mmol/L Normal 98-108 [facility] Comment on above: Order Comment: [facility] has implemented the eGFR calculation approach that does not have a coefficient for race that conforms to the NKF-ASN Task Force Recommendations. Performed By: #### 4 6126 #### LAB [address] [address] Jack Mendoza M.D. [id number] Creatinine [Mass/Vol] 0.66 mg/dL Normal 0.50-1.30 [facility] Comment on above: Order Comment: [facility] has implemented the eGFR calculation approach that does not have a coefficient for race that conforms to the NKF-ASN Task Force Recommendations. Performed By: #### 4 6126 #### LAB [address] [address] Jack Mendoza M.D. [id number] EGFR 109 mL/min/1.73 m2 Normal >=60 [facility] Comment on above: Order Comment: [facility] has implemented the eGFR calculation approach that does not have a coefficient for race that conforms to the NKF-ASN Task Force Recommendations. Result Comment: Ashley mated GFR was calculated using the 2020 CKD-EPI creatinine equation. Performed By: #### 4 6126 #### LAB [address] [address] Jack Mendoza M.D. [id number] Glucose [Mass/Vol] 96 mg/dL Normal 65-99 [facility] Comment on above: Order Comment: [facility] has implemented the eGFR calculation approach that does not have a coefficient for race that conforms to the NKF-ASN Task Force Recommendations. Performed By: #### 4 6126 #### LAB [address] [address] Jack Mendoza M.D. [id number] HCO3 (Bld) [Moles/Vol] 26 mmol/L Normal 21-32 [facility] Comment on above: Order Comment: [facility] has implemented the eGFR calculation approach that does not have a coefficient for race that conforms to the NKF-ASN Task Force Recommendations. Performed By: #### 4 6126 #### LAB [address] [address] Jack Mendoza M.D. [id number] Potassium [Moles/Vol] 3.9 mmol/L Normal 3.5-5.1 [facility] Comment on above: Order Comment: [facility] has implemented the eGFR calculation approach that does not have a coefficient for race that conforms to the NKF-ASN Task Force Recommendations. Performed By: #### 4 6126 #### LAB [address] [place], [place] [address] Jack Mendoza M.D. [id number] Protein [Mass/Vol] 7.8 g/dL Normal 6.0-8.0 [facility] Comment on above: Order Comment: [facility] has implemented the eGFR calculation approach that does not have a coefficient for race that conforms to the NKF-ASN Task Force Recommendations. Performed By: #### 4 6126 #### LAB [address] [id number] Jack Mendoza M.D. [id number] Sodium [Moles/Vol] 134 mmol/L Low 135-145 [facility] Comment on above: Order Comment: [facility] has implemented the eGFR calculation approach that does not have a coefficient for race that conforms to the NKF-ASN Task Force Recommendations. Performed By: #### 4 6126 #### LAB [address] [address] Jack Mendoza M.D. [id number] Urea nitrogen [Mass/Vol] 16 mg/dL Normal 8-25 [facility] Comment on above: Order Comment: [facility] has implemented the eGFR calculation approach that does not have a coefficient for race that conforms to the NKF-ASN Task Force Recommendations. Performed By: #### 4 6126 #### LAB [address] [place], [place] [address] Jack Mendoza M.D. [id number] Urea nitrogen/Creatinine [Mass ratio] 24.2 mg/mg High 10.0-20.0 [facility] Comment on above: Order Comment: [facility] has implemented the eGFR calculation approach that does not have a coefficient for race that conforms to the NKF-ASN Task Force Recommendations. Performed By: #### 4 6126 ####[facility] LAB [address] [place], [place] [address] Jack Mendoza M.D. [id number] Comprehensive metabolic 2000 panelon 05-11-2025 Albumin [Mass/Vol] 3.4 g/dL 3.2 - 5.2 g/dL [facility] ALP [Catalytic activity/Vol] 83 U/L 40 - 150 U/L [facility] ALT [Catalytic activity/Vol] 16 U/L 0 - 50 U/L [facility] Anion gap [Moles/Vol] 14 mmol/L 10 - 20 mmol/L [facility] AST [Catalytic activity/Vol] 31 U/L 0 - 50 U/L [facility] Bilirubin [Mass/Vol] 0.8 mg/dL 0.0 - 1 .3 mg/dL [facility] Calcium [Mass/Vol] 8.8 mg/dL 8.4 - 10. 2 mg/dL [facility] Chloride [Moles/Vol] 98 mmol/L 98 - 10 8 mmol/L [facility] Creatinine [Mass/Vol] 0.66 mg/dL 0.50 - 1.30 mg/dL [facility] GFR/1.73 sq M.predicted CKD-EPI (S/P/Bld) [Vol rate/Area] 109 - PINF [facility] Comment on above: Estimated GFR was ca lculated using the 2020 CKD-EPI creatinine equation. Glucose [Mass/Vol] 96 mg/dL 65 - 99 mg/dL [facility] HCO3 [Moles/Vol] 26 mmol/L 21 - 32 mmol/L [facility] Interpretation and review of laboratory results Abnormal [facility] Potassium [Moles/Vol] 3.9 mmol/L 3.5 - 5.1 mmol/L [facility] Protein [Mass/Vol] 7.8 g/dL 6.0 - 8.0 g/dL [facility] Sodium [Moles/Vol] 134 mmol/L Low 135 - 145 mmol/L [facility] Urea nitrogen [Mass/Vol] 16 mg/dL 8 - 25 mg/dL [facility] Urea nitrogen/Creatinine [Mass ratio] 24.2 mg/mg High 10.0 - 20.0 [facility] has implemented the eGFR calculation approach that does not have a coefficient for race that conforms to the NKF-ASN Task Force Recommendations. [facility] LACTIC ACID, PLASMAon 2024 LACTIC ACID, PLASMA 1.9 mmol/L Normal 0.6-2.0 [facility] Comment on above: Performed By: #### 4 6053 #### LAB [address] [address] Jack Mendoza M.D. [id number] Lactate [Moles/Vol]on 2024 Interpretation and review of laboratory results Normal [facility] Lactic Acidon 05-11-2025 Lactate [Moles/Vol] 1.9 mmol/L 0.6 - 2. 0 mmol/L [facility] MANUAL DIFFERENTIALon 2024 BASOPHILS - ABS (DIFF) 0.00 K/mcL Normal 0.00-0.30 [facility] Comment on above: Performed By: #### 4 5456 #### LAB [address] [address] Jack Mendoza M.D. [id number] BASOPHILS - REL (DIFF) 0.0 % [facility] Comment on above: Performed By: #### 4 5456 #### LAB [address] [address] Jack Mendoza M.D. [id number] EOSINOPHILS - ABS (DIFF) 0.13 K/mcL Normal 0.00-0.50 [facility] Comment on above: Performed By: #### 4 5456 #### LAB [address] [address] Jack Mendoza M.D. [id number] EOSINOPHILS - REL (DIFF) 3.0 % Normal [facility] Comment on above: Performed By: #### 4 5416 #### LAB [address] [address] Jack Mendoza M.D. [id number] LYMPHOCYTE ATYPICAL - REL (DIFF) 1.0 % [facility] Comment on above: Performed By: #### 4 5408 #### LAB [address] [address] Jack Mendoza M.D. [id number] LYMPHOCYTES - ABS (DIFF) 0.49 K/mcL Low 0.90-4.00 [facility] Comment on above: Performed By: #### 4 5456 #### LAB [address] [address] Jack Mendoza M.D. [id number] LYMPHOCYTES - REL (DIFF) 10.0 % Normal [facility] Comment on above: Performed By: #### 4 5456 #### LAB [address] [address] Jack Mendoza M.D. [id number] MONOCYTES - ABS (DIFF) 0.13 K/mcL Low 0.30-0.90 [facility] Comment on above: Performed By: #### 4 5456 #### LAB [address] [address] Jack Mendoza M.D. [id number] MONOCYTES - REL (DIFF) 3.0 % Normal [facility] Comment on above: Performed By: #### 4 5456 #### LAB [address] [address] Jack Mendoza M.D. [id number] NEUTROPHILS - ABS (DIFF) 3.70 K/mcL Normal 1.70-7.00 [facility] Comment on above: Performed By: #### 4 5456 #### LAB [address] [address] Jack Mendoza M.D. [id number] NEUTROPHILS - REL (DIFF) 83.0 % Normal [facility] Comment on above: Performed By: #### 4 5456 #### LAB [address] [address] Jack Mendoza M.D. [id number] MORPHOLOGYon 05-11-2025 ACANTHOCYTES Few Normal [facility] Comment on above: Performed By: #### L [id number] ####[facility] LAB [address] [address] Jack Mendoza M.D. [id number] OVAL SCAN Moderate Normal [facility] Comment on above: Performed By: #### L [id number] #### LAB [address] [address] Jack Menodza M.D. [id number] PLATELET ESTIMATE Decreased Abnormal Normal [facility] Comment on above: Performed By: #### L [id number] ####[facility] LAB [address] [place], [place] [address] Jack Mendoza M.D. [id number] POLY SCAN Few Normal [facility] Comment on above: Performed By: #### L AB295 ####[facility] LAB [address] [id number] Jack Mendoza M.D. [id number] RBC MORPH SCAN See Comment Normal [facility] Comment on above: Result Comment: RBC Indices confirmed with manual peripheral smear review. Performed By: #### L [id number] ####[facility] LAB [address] [id number] Jack Mendoza M.D. [id number] TARGET CELL SCAN Few Normal [facility] Comment on above: Performed By: #### L [id number] ####[facility] LAB [address] [address] aJck Mendoza M.D. [id number] Manual Differential panel (B ld)on 05-11-2025 Basophils (Bld) [#/Vol] 0 10*3/uL [facility] Basophils/100 WBC (Bld) 0 % [facility] Eosinophils (Bld) [#/Vol] 0.13 10*3/uL [facility] Eosinophils/100 WBC (Bld) 3 % [facility] Lymphocytes (Bld) [#/Vol] 0.49 10*3/uL Low [facility] Lymphocytes/100 WBC (Bld) 10 % [facility] Monocytes (Bld) [#/Vol] 0.13 10*3/uL Low [facility] Monocytes/100 WBC (Bld) 3 % [facility] Neutrophils (Bld) [#/Vol] 3.7 10*3/uL [facility] Neutrophils/100 WBC (Bld) 83 % [facility] Variant lymphocytes/100 WBC (Bld) 1 % [facility] No Panel Informationon 05-11 Interpretation and review of laboratory results Abnormal [facility] XR KNEE RIGHT 2 VIEWS (STAND NO)on 05-11-2025 XR KNEE RIGHT 2 VIEWS (STANDARD) Normal [facility] Comment on above: Order Comment: Injur y/Trauma or Illness?:Illness/OtherHow long have you had these symptoms (acute/chronic)?:AcuteReason for exam?:right knee pain and swellingHistory of cancer?:uSurgeries, chemotherapy, or radiation?:uType of Exam?:InitialAdditional signs and symptoms?:. XR Knee - right 2 Viewson No acute osseous abnormality. Workstation ID: [id number] [facility] EXAMINATION: XR KNEE RIGHT 2 VIEWS [...] joints are maintained. Small suprapatellar joint effusion. [facility] Briana Ramirez MD - 05/11/2025 EXAMINATION: [...] No acute osseous abnormality. Workstation ID: [id number] [facility] Radiology Study observation (narrative) [facility] XR Knee - right 2 ViewsOrder ed By: Briana Ramirez on 05-11-2025 [facility] Work Phone: BODY FLUID AEROBIC AND ANAER OBIC CULTUREon 05-09-2025 BODY FLUID AEROBIC AND ANAEROBIC CULTURE CULTURE No Growth after 5 days GRAM STAIN RESULT Moderate WBC Many RBC No Organisms Seen Normal [facility] Comment on above: Order Comment: Yue ered to run at [employer] instead of [employer] due to source Performed By: #### 4 1471 #### [facility] [address] [place], [place] [address] Venancio Richardson M.D. [id number] BODY FLUID AEROBIC AND ANAEROBIC CULTURE CULTURE No Growth after 5 days GRAM STAIN RESULT Few WBC Many RBC No Organisms Seen Normal [facility] Comment on above: Performed By: #### 4 4197 #### [facility] [place], [place] [address] Venancio Richardson M.D. [id number] BASIC METABOLIC PANELon 08- Anion gap [Moles/Vol] 11 mmol/L Normal 10-20 [facility] Comment on above: Order Comment: [facility] has implemented the eGFR calculation approach that does not have a coefficient for race that conforms to the NKF-ASN Task Force Recommendations. Performed By: #### 4 6124 #### LAB [address] [address] Jack Mendoza M.D. [id number] Calcium [Mass/Vol] 8.2 mg/dL Low 8.4-10.2 [facility] Comment on above: Order Comment: [facility] has implemented the eGFR calculation approach that does not have a coefficient for race that conforms to the NKF-ASN Task Force Recommendations. Performed By: #### 4 6124 #### LAB [address] [place], [place] [address] Jack Mendoza M.D. [id number] Chloride [Moles/Vol] 100 mmol/L Normal 98-108 [facility] Comment on above: Order Comment: [facility] has implemented the eGFR calculation approach that does not have a coefficient for race that conforms to the NKF-ASN Task Force Recommendations. Performed By: #### 4 6124 #### LAB [address] [id number] Jack Mendoza M.D. [id number] Creatinine [Mass/Vol] 0.51 mg/dL Normal 0.50-1.30 [facility] Comment on above: Order Comment: [facility] has implemented the eGFR calculation approach that does not have a coefficient for race that conforms to the NKF-ASN Task Force Recommendations. Performed By: #### 4 6124 #### LAB [address] [address] Jack Mendoza M.D. [id number] EGFR 118 mL/min/1.73 m2 Normal >=60 [facility] Comment on above: Order Comment: [facility] has implemented the eGFR calculation approach that does not have a coefficient for race that conforms to the NKF-ASN Task Force Recommendations. Result Comment: Ashley mated GFR was calculated using the 2020 CKD-EPI creatinine equation. Performed By: #### 4 6124 #### LAB [address] [address] Jack Mendoza M.D. [id number] Glucose [Mass/Vol] 115 mg/dL High 65-99 [facility] Comment on above: Order Comment: [facility] has implemented the eGFR calculation approach that does not have a coefficient for race that conforms to the NKF-ASN Task Force Recommendations. Performed By: #### 4 6124 #### LAB [address] [address] Jack Mendoza M.D. [id number] HCO3 (Bld) [Moles/Vol] 29 mmol/L Normal 21-32 [facility] Comment on above: Order Comment: [facility] has implemented the eGFR calculation approach that does not have a coefficient for race that conforms to the NKF-ASN Task Force Recommendations. Performed By: #### 4 6124 #### LAB [address] [address] Jack Mendoza M.D. [id number] Potassium [Moles/Vol] 4.1 mmol/L Normal 3.5-5.1 [facility] Comment on above: Order Comment: [facility] has implemented the eGFR calculation approach that does not have a coefficient for race that conforms to the NKF-ASN Task Force Recommendations. Performed By: #### 4 6124 #### LAB [address] [address] Jack Mendoza M.D. [id number] Sodium [Moles/Vol] 136 mmol/L Normal 135-145 [facility] Comment on above: Order Comment: [facility] has implemented the eGFR calculation approach that does not have a coefficient for race that conforms to the NKF-ASN Task Force Recommendations. Performed By: #### 4 6124 #### LAB [address] [place], [place] [address] Jack Mendoza M.D. [id number] Urea nitrogen [Mass/Vol] 12 mg/dL Normal 8-25 [facility] Comment on above: Order Comment: [facility] has implemented the eGFR calculation approach that does not have a coefficient for race that conforms to the NKF-ASN Task Force Recommendations. Performed By: #### 4 6124 #### LAB [address] [place], [place] [address] Jack Mendoza M.D. [id number] Urea nitrogen/Creatinine [Mass ratio] 23.5 mg/mg High 10.0-20.0 [facility] Comment on above: Order Comment: [facility] has implemented the eGFR calculation approach that does not have a coefficient for race that conforms to the NKF-ASN Task Force Recommendations. Performed By: #### 4 6124 #### LAB [address] [place], [place] [address] Jack Mendoza M.D. [id number] Basic metabolic 2000 panelon 04-05-2025 Anion gap [Moles/Vol] 11 mmol/L 10 - 20 mmol/L [facility] Calcium [Mass/Vol] 8.2 mg/dL Low 8.4 - 10. 2 mg/dL [facility] Chloride [Moles/Vol] 100 mmol/L 98 - 10 8 mmol/L [facility] Creatinine [Mass/Vol] 0.51 mg/dL 0.50 - 1.30 mg/dL [facility] GFR/1.73 sq M.predicted CKD-EPI (S/P/Bld) [Vol rate/Area] 118 - PINF [facility] Comment on above: Estimated GFR was ca lculated using the 2020 CKD-EPI creatinine equation. Glucose [Mass/Vol] 115 mg/dL High 65 - 99 mg/dL [facility] HCO3 [Moles/Vol] 29 mmol/L 21 - 32 mmol/L [facility] Interpretation and review of laboratory results Abnormal [facility] Potassium [Moles/Vol] 4.1 mmol/L 3.5 - 5.1 mmol/L [facility] Sodium [Moles/Vol] 136 mmol/L 135 - 145 mmol/L [facility] Urea nitrogen [Mass/Vol] 12 mg/dL 8 - 25 mg/dL [facility] Urea nitrogen/Creatinine [Mass ratio] 23.5 mg/mg High 10.0 - 20.0 [facility] has implemented the eGFR calculation approach that does not have a coefficient for race that conforms to the NKF-ASN Task Force Recommendations. [facility] Anion gap [Moles/Vol] 15 mmol/L 10 - 20 mmol/L [facility] Calcium [Mass/Vol] 8.7 mg/dL 8.4 - 10. 2 mg/dL [facility] Chloride [Moles/Vol] 96 mmol/L Low 98 - 10 8 mmol/L [facility] Creatinine [Mass/Vol] 0.65 mg/dL 0.50 - 1.30 mg/dL [facility] GFR/1.73 sq M.predicted CKD-EPI (S/P/Bld) [Vol rate/Area] 109 - PINF [facility] Comment on above: Estimated GFR was ca lculated using the 2020 CKD-EPI creatinine equation. Glucose [Mass/Vol] 124 mg/dL High 65 - 99 mg/dL [facility] HCO3 [Moles/Vol] 27 mmol/L 21 - 32 mmol/L [facility] Interpretation and review of laboratory results Abnormal [facility] Potassium [Moles/Vol] 4.4 mmol/L 3.5 - 5.1 mmol/L [facility] Sodium [Moles/Vol] 134 mmol/L Low 135 - 145 mmol/L [facility] Urea nitrogen [Mass/Vol] 12 mg/dL 8 - 25 mg/dL [facility] Urea nitrogen/Creatinine [Mass ratio] 18.5 mg/mg 10.0 - 20.0 [facility] has implemented the eGFR calculation approach that does not have a coefficient for race that conforms to the NKF-ASN Task Force Recommendations. [facility] CBC Auto Differentialon 03-22 Basophils (Bld) [#/Vol] 0.01 10*3/uL [facility] Basophils/100 WBC (Bld) 0.3 % [facility] Eosinophils (Bld) [#/Vol] 0.05 10*3/uL [facility] Eosinophils/100 WBC (Bld) 1.6 % [facility] Erythrocyte distribution width (RBC) [Entitic vol] 17.1 % High 11.6 - 14.8 % [facility] Hematocrit (Bld) [Volume fraction] 32.7 % Low 41.0 - 53.0 % [facility] Hemoglobin (Bld) [Mass/Vol] 9.8 g/dL Low 13.5 - 17.5 g/dL [facility] Immature granulocytes (Bld) [#/Vol] 0.01 10*3/uL [facility] Immature granulocytes/100 WBC (Bld) 0.3 % [facility] Comment on above: The IG parameter is the percentage of metamyelocytes, myelocytes and promyelocytes. An immature granulocyte count (IG) of 1% or more suggests the possibility of infection, an IG count of 3% is very likely related to an infection. Lymphocytes (Bld) [#/Vol] 0.5 10*3/uL Low [facility] Lymphocytes/100 WBC (Bld) 15.6 % [facility] MCH (RBC) [Entitic mass] 21.7 pg Low 26.0 - 34.0 pg [facility] MCHC (RBC) [Mass/Vol] 30 g/dL Low 31.0 - 37.0 g/dL [facility] MCV (RBC) [Entitic vol] 72.3 fL Low 80.0 - 100.0 fL [facility] Monocytes (Bld) [#/Vol] 0.25 10*3/uL Low [facility] Monocytes/100 WBC (Bld) 7.8 % [facility] Neutrophils (Bld) [#/Vol] 2.39 10*3/uL [facility] Neutrophils/100 WBC (Bld) 74.4 % [facility] Comment on above: Peripheral smear rev iewed manually Nucleated RBC (Bld) [#/Vol] 0 10*3/uL [facility] Nucleated RBC/100 WBC (Bld) [Ratio] 0 % [facility] Platelet mean volume (Bld) [Entitic vol] 9.3 fL Low 9.4 - 12.4 fL [facility] Platelets (Bld) [#/Vol] 95 10*3/uL Low [facility] RBC (Bld) [#/Vol] 4.52 10*6/uL [facility] ealth WBC (Bld) [#/Vol] 3.21 10*3/uL Low [facility] CBC WITH AUTO DIFFERENTIALon 04-05-2025 AUTO NRBC 0.0 % Normal [facility] Comment on above: Performed By: #### L [id number] #### LAB [address] [address] Jack Mendoza M.D. [id number] AUTO NRBC ABS COUNT 0.00 K/mcL Normal 0.00-0.00 [facility] Comment on above: Performed By: #### L [id number] #### LAB [address] [address] Jack Mendoza M.D. [id number] BASOPHILS ABSOLUTE COUNT 0.01 K/mcL Normal 0.00-0.30 [facility] Comment on above: Performed By: #### L [id number] #### LAB [address] [address] Jack Mendoza M.D. [id number] Basophils/100 WBC (Bld) 0.3 % Normal [facility] Comment on above: Performed By: #### L [id number] #### LAB [address] [place] [address] Jack Mendoza M.D. [id number] Eosinophils (Bld) [#/Vol] 0.05 10*3/uL Normal 0.00-0.50 [facility] Comment on above: Performed By: #### L [id number] #### LAB [address] [place] [address] Jack Mendoza M.D. [id number] Eosinophils/100 WBC (Bld) 1.6 % [facility] Comment on above: Performed By: #### L [id number] #### LAB [address] [place] [address] Jack Mendoza M.D. [id number] Erythrocyte distribution width (RBC) [Ratio] 17.1 % High 11.6-14.8 [facility] Comment on above: Performed By: #### L [id number] #### LAB [address] [place] [address] Jack Mendoza M.D. [id number] Hematocrit (Bld) [Volume fraction] 32.7 % Low 41.0-53.0 [facility] Comment on above: Performed By: #### L [id number] #### LAB [address] [address] Jack Mendoza M.D. [id number] Hemoglobin (Bld) [Mass/Vol] 9.8 g/dL Low 13.5-17.5 [facility] Comment on above: Performed By: #### L [id number] #### LAB [address] [address] Jack Mendoza M.D. [id number] IG ABSOLUTE 0.01 K/mcL Normal 0.00-0.30 [facility] Comment on above: Performed By: #### L [id number] #### LAB [address] [address] Jack Mendoza M.D. [id number] IG PERCENT 0.30 % [facility] Comment on above: Result Comment: The IG parameter is the percentage of metamyelocytes, myelocytes and promyelocytes. An immature granulocyte count (IG) of 1% or more suggests the possibility of infection, an IG count of 3% is very likely related to an infection. Performed By: #### L [id number] #### LAB [address] [address] Jack Mendoza M.D. [id number] Lymphocytes (Bld) [#/Vol] 0.50 10*3/uL Low 0.90-4.00 [facility] Comment on above: Performed By: #### L [id number] #### LAB [address] [address] Jack Mendoza M.D. [id number] Lymphocytes/100 WBC (Bld) 15.6 % [facility] Comment on above: Performed By: #### L [id number] #### LAB [address] [address] Jack Mendoza M.D. [id number] MCH (RBC) [Entitic mass] 21.7 pg Low 26.0-34.0 [facility] Comment on above: Performed By: #### L [id number] #### LAB [address] [address] Jack Mendoza M.D. [id number] MCV (RBC) [Entitic vol] 72.3 fL Low 80.0-100.0 [facility] Comment on above: Performed By: #### L [id number] #### LAB [address] [address] Jack Mendoza M.D. [id number] MEAN CORPUSCULAR HEMOGLOBIN CONC 30.0 g/dL Low 31.0-37.0 [facility] Comment on above: Performed By: #### L [id number] #### LAB [address] [address] Jack Mendoza M.D. [id number] Monocytes (Bld) [#/Vol] 0.25 10*3/uL Low 0.30-0.90 [facility] Comment on above: Performed By: #### L [id number] #### LAB [address] [place] [address] Jack Mendoza M.D. [id number] Monocytes/100 WBC (Bld) 7.8 % Normal [facility] Comment on above: Performed By: #### L [id number] #### LAB [address] [place] [address] Jack Mendoza M.D. [id number] NEUTROPHILS ABSOLUTE COUNT 2.39 K/mcL Normal 1.70-7.00 [facility] Comment on above: Performed By: #### L [id number] #### LAB [address] [place] [address] Jack Mendoza M.D. [id number] Neutrophils/100 WBC (Bld) 74.4 % Normal [facility] Comment on above: Result Comment: Tiffany pheral smear reviewed manually Performed By: #### L [id number] #### LAB [address] [place] [address] Jack Mendoza M.D. [id number] Platelet mean volume (Bld) [Entitic vol] 9.3 fL Low 9.4-12.4 [facility] Comment on above: Performed By: #### L [id number] ####[facility] LAB [address] [address] Jack Mendoza M.D. [id number] Platelets (Bld) [#/Vol] 95 10*3/uL Low 150-400 [facility] Comment on above: Performed By: #### L [id number] ####[facility] LAB [address] [address] aJck Mendoza M.D. [id number] RBC (Bld) [#/Vol] 4.52 10*6/uL Normal 4.50-5.90 [facility] Comment on above: Performed By: #### L [id number] ####[facility] LAB [address] [address] Jack Mendoza M.D. [id number] WBC (Bld) [#/Vol] 3.21 10*3/uL Low 4.50-11.00 [facility] Comment on above: Performed By: #### L [id number] ####[facility] LAB [address] [address] Jack Mendoza M.D. [id number] CBC and Diff Morphologyon Ovalocytes LM Ql (Bld) Moderate [facility] Platelets LM Ql (Bld) Decreased Abnormal Normal [facility] Polychromasia LM Ql (Bld) Few [facility] RBC morphology finding Nom (Bld) See Comment [facility] Comment on above: RBC Indices confirme d with manual peripheral smear review. Disch Summon 04-05-2025 Disch Summ Normal [facility] LACTIC ACID, PLASMAon 2024 LACTIC ACID, PLASMA 0.7 mmol/L Normal 0.6-2.0 [facility] Comment on above: Performed By: #### 4 [id number] ####[facility] LAB [address] [address] Jack Mendoza M.D. [id number] Lactate [Moles/Vol]on 2024 Interpretation and review of laboratory results Normal [facility] Lactic Acid, Plasmaon 2024 Lactate [Moles/Vol] 0.7 mmol/L 0.6 - 2. 0 mmol/L [facility] MORPHOLOGYon 04-05-2025 OVAL SCAN Moderate Normal [facility] Comment on above: Performed By: #### L [id number] ####[facility] LAB [address] [address] Jack Mendoza M.D. [id number] PLATELET ESTIMATE Decreased Abnormal Normal [facility] Comment on above: Performed By: #### L [id number] ####[facility] LAB [address] [address] Jack Mendoza M.D. [id number] POLY SCAN Few Normal [facility] Comment on above: Performed By: #### L [id number] ####[facility] LAB [address] [address] Jack Mendoza M.D. [id number] RBC MORPH SCAN See Comment Normal [facility] Comment on above: Result Comment: RBC Indices confirmed with manual peripheral smear review. Performed By: #### L [id number] ####[facility] LAB [address] [address] Jack Mendoza M.D. [id number] No Panel Informationon 04-05 Interpretation and review of laboratory results Abnormal [facility] XR CHEST PA/APon 04-05-2025 XR CHEST PA/AP Normal [facility] Comment on above: Order Comment: Injur y/Trauma or Illness?:Illness/OtherHow long have you had these symptoms (acute/chronic)?:AcuteReason for exam?:Respiratory failureHistory of cancer?:uSurgeries, chemotherapy, or radiation?:uType of Exam?:InitialAdditional signs and symptoms?:. BASIC METABOLIC PANELon 03-22 Anion gap [Moles/Vol] 15 mmol/L Normal - [facility] Comment on above: Order Comment: [facility] has implemented the eGFR calculation approach that does not have a coefficient for race that conforms to the NKF-ASN Task Force Recommendations. Performed By: #### 4 [id number] ####[facility] LAB [address] [place], [place] [address] Jack Mendoza M.D. [id number] Calcium [Mass/Vol] 8.7 mg/dL Normal 8.4-10.2 [facility] Comment on above: Order Comment: [facility] has implemented the eGFR calculation approach that does not have a coefficient for race that conforms to the NKF-ASN Task Force Recommendations. Performed By: #### 4 [id number] ####[facility] LAB [address] [address] Jack Mendoza M.D. [id number] Chloride [Moles/Vol] 96 mmol/L Low 98-108 [facility] Comment on above: Order Comment: [facility] has implemented the eGFR calculation approach that does not have a coefficient for race that conforms to the NKF-ASN Task Force Recommendations. Performed By: #### 4 [id number] #### LAB [address] [address] Jack Mendoza M.D. [id number] Creatinine [Mass/Vol] 0.65 mg/dL Normal 0.50-1.30 [facility] Comment on above: Order Comment: [facility] has implemented the eGFR calculation approach that does not have a coefficient for race that conforms to the NKF-ASN Task Force Recommendations. Performed By: #### 4 [id number] #### LAB [address] [address] Jack Mendoza M.D. [id number] EGFR 109 mL/min/1.73 m2 Normal >=60 [facility] Comment on above: Order Comment: [facility] has implemented the eGFR calculation approach that does not have a coefficient for race that conforms to the NKF-ASN Task Force Recommendations. Result Comment: Ashley mated GFR was calculated using the 2020 CKD-EPI creatinine equation. Performed By: #### 4 [id number] #### LAB [address] [address] Jack Mendoza M.D. [id number] Glucose [Mass/Vol] 124 mg/dL High 65-99 [facility] Comment on above: Order Comment: [facility] has implemented the eGFR calculation approach that does not have a coefficient for race that conforms to the NKF-ASN Task Force Recommendations. Performed By: #### 4 [id number] #### LAB [address] [address] Jack Mendoza M.D. [id number] HCO3 (Bld) [Moles/Vol] 27 mmol/L Normal 21-32 [facility] Comment on above: Order Comment: [facility] has implemented the eGFR calculation approach that does not have a coefficient for race that conforms to the NKF-ASN Task Force Recommendations. Performed By: #### 4 6124 #### LAB [address] [address] Jack Mendoza M.D. [id number] Potassium [Moles/Vol] 4.4 mmol/L Normal 3.5-5.1 [facility] Comment on above: Order Comment: [facility] has implemented the eGFR calculation approach that does not have a coefficient for race that conforms to the NKF-ASN Task Force Recommendations. Performed By: #### 4 6124 #### LAB [address] [address] Jack Mendoza M.D. [id number] Sodium [Moles/Vol] 134 mmol/L Low 135-145 [facility] Comment on above: Order Comment: [facility] has implemented the eGFR calculation approach that does not have a coefficient for race that conforms to the NKF-ASN Task Force Recommendations. Performed By: #### 4 6179 #### LAB [address] [address] Jack Mendoza M.D. [id number] Urea nitrogen [Mass/Vol] 12 mg/dL Normal 8-25 [facility] Comment on above: Order Comment: [facility] has implemented the eGFR calculation approach that does not have a coefficient for race that conforms to the NKF-ASN Task Force Recommendations. Performed By: #### 4 6158 #### LAB [address] [address] Jack Mendoza M.D. [id number] Urea nitrogen/Creatinine [Mass ratio] 18.5 mg/mg Normal 10.0-20.0 [facility] Comment on above: Order Comment: [facility] has implemented the eGFR calculation approach that does not have a coefficient for race that conforms to the NKF-ASN Task Force Recommendations. Performed By: #### 4 6124 ####[facility] LAB [address], [place] [address] Jack Mendoza M.D. [id number] CBC Auto Differentialon 03-22 Basophils (Bld) [#/Vol] 0.02 10*3/uL [facility] Basophils/100 WBC (Bld) 0.4 % [facility] Eosinophils (Bld) [#/Vol] 0.13 10*3/uL [facility] Eosinophils/100 WBC (Bld) 2.8 % [facility] Erythrocyte distribution width (RBC) [Entitic vol] 17.2 % High 11.6 - 14.8 % [facility] Hematocrit (Bld) [Volume fraction] 37.6 % Low 41.0 - 53.0 % [facility] Hemoglobin (Bld) [Mass/Vol] 11.2 g/dL Low 13.5 - 17.5 g/dL [facility] Immature granulocytes (Bld) [#/Vol] 0.02 10*3/uL [facility] Immature granulocytes/100 WBC (Bld) 0.4 % [facility] Comment on above: The IG parameter is the percentage of metamyelocytes, myelocytes and promyelocytes. An immature granulocyte count (IG) of 1% or more suggests the possibility of infection, an IG count of 3% is very likely related to an infection. Interpretation and review of laboratory results Abnormal [facility] Lymphocytes (Bld) [#/Vol] 1.13 10*3/uL [facility] Lymphocytes/100 WBC (Bld) 24 % [facility] MCH (RBC) [Entitic mass] 21.5 pg Low 26.0 - 34.0 pg [facility] MCHC (RBC) [Mass/Vol] 29.8 g/dL Low 31.0 - 37.0 g/dL [facility] MCV (RBC) [Entitic vol] 72.2 fL Low 80.0 - 100.0 fL [facility] Monocytes (Bld) [#/Vol] 0.42 10*3/uL [facility] Monocytes/100 WBC (Bld) 8.9 % [facility] Neutrophils (Bld) [#/Vol] 2.99 10*3/uL [facility] Neutrophils/100 WBC (Bld) 63.5 % [facility] Nucleated RBC (Bld) [#/Vol] 0 10*3/uL [facility] Nucleated RBC/100 WBC (Bld) [Ratio] 0 % [facility] Platelet mean volume (Bld) [Entitic vol] 9.9 fL 9.4 - 12.4 fL [facility] Platelets (Bld) [#/Vol] 124 10*3/uL Low [facility] RBC (Bld) [#/Vol] 5.21 10*6/uL [facility] WBC (Bld) [#/Vol] 4.71 10*3/uL [facility] CBC WITH AUTO DIFFERENTIALon 04-04-2025 AUTO NRBC 0.0 % [facility] Comment on above: Performed By: #### L [id number] #### LAB [address] [address] Jack Mendoza M.D. [id number] AUTO NRBC ABS COUNT 0.00 K/mcL Normal 0.00-0.00 [facility] Comment on above: Performed By: #### L [id number] #### LAB [address] [address] Jack Mendoza M.D. [id number] BASOPHILS ABSOLUTE COUNT 0.02 K/mcL Normal 0.00-0.30 [facility] Comment on above: Performed By: #### L [id number] #### LAB [address] [address] Jack Mendoza M.D. [id number] Basophils/100 WBC (Bld) 0.4 % Normal [facility] Comment on above: Performed By: #### L [id number] #### LAB [address] [address] Jack Mendoza M.D. [id number] Eosinophils (Bld) [#/Vol] 0.13 10*3/uL Normal 0.00-0.50 [facility] Comment on above: Performed By: #### L [id number] #### LAB [address] [address] Jack Mendoza M.D. [id number] Eosinophils/100 WBC (Bld) 2.8 % Normal [facility] Comment on above: Performed By: #### L [id number] #### LAB [address] [address] Jack Mendoza M.D. [id number] Erythrocyte distribution width (RBC) [Ratio] 17.2 % High 11.6-14.8 [facility] Comment on above: Performed By: #### L [id number] #### LAB [address] [address] Jack Mendoza M.D. [id number] Hematocrit (Bld) [Volume fraction] 37.6 % Low 41.0-53.0 [facility] Comment on above: Performed By: #### L [id number] #### LAB [address] [address] Jack Mendoza M.D. [id number] Hemoglobin (Bld) [Mass/Vol] 11.2 g/dL Low 13.5-17.5 [facility] Comment on above: Performed By: #### L [id number] #### LAB [address] [address] Jack Mendoza M.D. [id number] IG ABSOLUTE 0.02 K/mcL Normal 0.00-0.30 [facility] Comment on above: Performed By: #### L [id number] #### LAB [address] [address] Jack Mendoza M.D. [id number] IG PERCENT 0.40 % Normal [facility] Comment on above: Result Comment: The IG parameter is the percentage of metamyelocytes, myelocytes and promyelocytes. An immature granulocyte count (IG) of 1% or more suggests the possibility of infection, an IG count of 3% is very likely related to an infection. Performed By: #### L [id number] #### LAB [address] [place] [address] Jack Mendoza M.D. [id number] Lymphocytes (Bld) [#/Vol] 1.13 10*3/uL Normal 0.90-4.00 [facility] Comment on above: Performed By: #### L [id number] #### LAB [address] [place] [address] Jack Mendoza M.D. [id number] Lymphocytes/100 WBC (Bld) 24.0 % Normal [facility] Comment on above: Performed By: #### L [id number] #### LAB [address] [address] Jack Mendoza M.D. [id number] MCH (RBC) [Entitic mass] 21.5 pg Low 26.0-34.0 [facility] Comment on above: Performed By: #### L [id number] #### LAB [address] [place] [address] Jack Mendoza M.D. [id number] MCV (RBC) [Entitic vol] 72.2 fL Low 80.0-100.0 [facility] Comment on above: Performed By: #### L [id number] #### LAB [address] [place] [address] Jack Mendoza M.D. [id number] MEAN CORPUSCULAR HEMOGLOBIN CONC 29.8 g/dL Low 31.0-37.0 [facility] Comment on above: Performed By: #### L [id number] #### LAB [address] [place] [address] Jack Mendoza M.D. [id number] Monocytes (Bld) [#/Vol] 0.42 10*3/uL Normal 0.30-0.90 [facility] Comment on above: Performed By: #### L [id number] #### LAB [address] [place] [address] Jack Mendoza M.D. [id number] Monocytes/100 WBC (Bld) 8.9 % [facility] Comment on above: Performed By: #### L [id number] #### LAB [address] [address] Jack Mendoza M.D. [id number] NEUTROPHILS ABSOLUTE COUNT 2.99 K/mcL Normal 1.70-7.00 [facility] Comment on above: Performed By: #### L [id number] #### LAB [address] [address] Jack Mendoza M.D. [id number] Neutrophils/100 WBC (Bld) 63.5 % Normal [facility] Comment on above: Performed By: #### L [id number] #### LAB [address] [address] Jack Mendoza M.D. [id number] Platelet mean volume (Bld) [Entitic vol] 9.9 fL Normal 9.4-12.4 [facility] Comment on above: Performed By: #### L [id number] #### LAB [address] [address] Jack Mendoza M.D. [id number] Platelets (Bld) [#/Vol] 124 10*3/uL Low 150-400 [facility] Comment on above: Performed By: #### L [id number] #### LAB [address] [address] Jack Mendoza M.D. [id number] RBC (Bld) [#/Vol] 5.21 10*6/uL Normal 4.50-5.90 [facility] Comment on above: Performed By: #### L [id number] #### LAB [address] [address] Jack Mendoza M.D. [id number] WBC (Bld) [#/Vol] 4.71 10*3/uL Normal 4.50-11.00 [facility] Comment on above: Performed By: #### L [id number] #### LAB [address] [address] Jack Mendoza M.D. [id number] Glucose (Bld) [Mass/Vol]on 04-04-2025 Glucose [Mass/Vol] 143 mg/dL High 65 - 99 mg/dL [facility] Interpretation and review of laboratory results Abnormal [facility] POC ARTERIAL BLOOD GAS PANEL -ERIKA Ortega 04-04-2025 [id number] 101.3 mm Hg Normal [facility] Comment on above: Order Comment: Criti drea result acted upon time of test. Test performed at bedside. BASE EXCESS, ARTERIAL 0.9 Normal -2.0-2.0 [facility] Comment on above: Order Comment: Criti drea result acted upon time of test. Test performed at bedside. CALCIUM IONIZED 4.7 mg/dL Normal 4.5-5.3 [facility] Comment on above: Order Comment: Criti drea result acted upon time of test. Test performed at bedside. CARBOXYHEMOGLOBIN 1.7 % of total Hb High <=1.5 [facility] Comment on above: Order Comment: Criti drea result acted upon time of test. Test performed at bedside. Result Comment: Refe rence Ranges:Suburban Non-smokers: <1.5%Smokers: 1.5-5.0%Heavy Smokers: 5.0-9.0% Chloride [Moles/Vol] 97 mmol/L Low 98-108 [facility] Comment on above: Order Comment: Criti drea result acted upon time of test. Test performed at bedside. FIO2 44 Normal [facility] Comment on above: Order Comment: Criti drea result acted upon time of test. Test performed at bedside. Glucose [Mass/Vol] 126 mg/dL High 65-99 [facility] Comment on above: Order Comment: Criti drea result acted upon time of test. Test performed at bedside. HCO3 (Bld) [Moles/Vol] 29.6 mmol/L High 22.0-26.0 [facility] Comment on above: Order Comment: Criti drea result acted upon time of test. Test performed at bedside. Hematocrit (Bld) [Volume fraction] 36.2 % Low 41.0-53.0 [facility] Comment on above: Order Comment: Criti drea result acted upon time of test. Test performed at bedside. Hemoglobin (Bld) [Mass/Vol] 11.8 g/dL Low 13.5-17.5 [facility] Comment on above: Order Comment: Criti drea result acted upon time of test. Test performed at bedside. LACTIC ACID, WHOLE BLOOD 4.7 mmol/L Off scale high 0.6-2.0 [facility] Comment on above: Order Comment: Criti drea result acted upon time of test. Test performed at bedside. LITER FLOW 6 Normal [facility] Comment on above: Order Comment: Criti drea result acted upon time of test. Test performed at bedside. METHEMOGLOBIN 0.4 % Normal 0.0-2.0 [facility] Comment on above: Order Comment: Criti drea result acted upon time of test. Test performed at bedside. O2HB 96.2 % Normal 94.0-98.0 [facility] Comment on above: Order Comment: Criti drea result acted upon time of test. Test performed at bedside. Oxygen saturation in Blood 98.4 % Normal 92.0-99.0 [facility] Comment on above: Order Comment: Criti drea result acted upon time of test. Test performed at bedside. PCO2 ARTERIAL 68.5 mm Hg High 35.0-45.0 [facility] Comment on above: Order Comment: Criti drea result acted upon time of test. Test performed at bedside. PH ARTERIAL 7.24 Low 7.35-7.45 [facility] Comment on above: Order Comment: Criti drea result acted upon time of test. Test performed at bedside. PO2 ARTERIAL 123 mm Hg High 80-100 [facility] Comment on above: Order Comment: Criti drea result acted upon time of test. Test performed at bedside. Potassium [Moles/Vol] 4.1 mmol/L Normal 3.5-5.1 [facility] Comment on above: Order Comment: Criti drea result acted upon time of test. Test performed at bedside. Sodium [Moles/Vol] 136 mmol/L Normal 135-145 [facility] Comment on above: Order Comment: Criti drea result acted upon time of test. Test performed at bedside. SPECIMEN SOURCE RADIANCE Radial, right Normal [facility] Comment on above: Order Comment: Criti drea result acted upon time of test. Test performed at bedside. POC Arterial Blood Gas Panel -Pulmon 04-04-2025 Alveolar-arterial oxygen Partial pressure difference 101.3 mm Hg [facility] Base excess Calc (Bld) [Moles/Vol] 0.9 mmol/L -2.0 - 2.0 [facility] Calcium.ionized [Mass/Vol] 4.7 mg/dL 4.5 - 5.3 mg/dL [facility] Carboxyhemoglobin (BldA) [Mass fraction] 1.7 High [facility] Comment on above: Reference Ranges: Suburban Non-smokers: <1.5% Smokers: 1.5-5.0% Heavy Smokers: 5.0-9.0% CO2 (Bld) [Partial pressure] 68.5 mm[Hg] High [facility] Glucose post fast [Mass/Vol] 126 mg/dL High 65 - 99 mg/dL [facility] Hematocrit (BldA) [Volume fraction] 36.2 % Low 41.0 - 53.0 % [facility] Inhaled oxygen concentration 44 % [facility] Inhaled oxygen flow rate 6 L/min [facility] Interpretation and review of laboratory results Abnormal [facility] Lactate [Moles/Vol] 4.7 mmol/L Critically high 0.6 - 2.0 mmol/L [facility] Methemoglobin (BldA) [Mass fraction] 0.4 % 0.0 - 2.0 % [facility] Oxygen (Bld) [Partial pressure] 123 mm[Hg] High [facility] Oxyhemoglobin (BldA) [Mass fraction] 96.2 % 94.0 - 98.0 % [facility] pH (Bld) 7.24 [pH] Low 7.35 - 7.45 [facility] Specimen source Nom (Unsp spec) Radial, right [facility] Critical result acte d upon time of test. Test performed at bedside. [facility] POC GLUCOSE - Shannon 025 Glucose [Mass/Vol] 143 mg/dL High 65-99 [facility] AMMONIAon 04-02-2025 AMMONIA 49 micromol/L High 12 [facility] Comment on above: Performed By: #### 4 [id number] #### LAB [address], [place] [address] Jack Mendoza M.D. [id number] Ammoniaon 04-02-2025 Ammonia (P) [Mass/Vol] 49 ug/dL High [facility] Ammonia (P) [Mass/Vol]on Interpretation and review of laboratory results Abnormal [facility] BASIC METABOLIC PANELon 03-22 Anion gap [Moles/Vol] 11 mmol/L Normal 10-20 [facility] Comment on above: Order Comment: [facility] has implemented the eGFR calculation approach that does not have a coefficient for race that conforms to the NKF-ASN Task Force Recommendations. Performed By: #### 4 6124 #### LAB [address] [address] Jack Mendoza M.D. [id number] Calcium [Mass/Vol] 8.8 mg/dL Normal 8.4-10.2 [facility] Comment on above: Order Comment: [facility] has implemented the eGFR calculation approach that does not have a coefficient for race that conforms to the NKF-ASN Task Force Recommendations. Performed By: #### 4 6124 #### LAB [address] [id number] Jack Mendoza M.D. [id number] Chloride [Moles/Vol] 99 mmol/L Normal 98-108 [facility] Comment on above: Order Comment: [facility] has implemented the eGFR calculation approach that does not have a coefficient for race that conforms to the NKF-ASN Task Force Recommendations. Performed By: #### 4 6124 #### LAB [address] [address] Jack Mendoza M.D. [id number] Creatinine [Mass/Vol] 0.47 mg/dL Low 0.50-1.30 [facility] Comment on above: Order Comment: [facility] has implemented the eGFR calculation approach that does not have a coefficient for race that conforms to the NKF-ASN Task Force Recommendations. Performed By: #### 4 6124 #### LAB [address] [address] Jack Mendoza M.D. [id number] EGFR 120 mL/min/1.73 m2 Normal >=60 [facility] Comment on above: Order Comment: [facility] has implemented the eGFR calculation approach that does not have a coefficient for race that conforms to the NKF-ASN Task Force Recommendations. Result Comment: Ashley mated GFR was calculated using the 2020 CKD-EPI creatinine equation. Performed By: #### 4 6124 #### LAB [address] [address] Jack Mendoza M.D. [id number] Glucose [Mass/Vol] 110 mg/dL High 65-99 [facility] Comment on above: Order Comment: [facility] has implemented the eGFR calculation approach that does not have a coefficient for race that conforms to the NKF-ASN Task Force Recommendations. Performed By: #### 4 6124 #### LAB [address] [address] Jack Mendoza M.D. [id number] HCO3 (Bld) [Moles/Vol] 29 mmol/L Normal 21-32 [facility] Comment on above: Order Comment: [facility] has implemented the eGFR calculation approach that does not have a coefficient for race that conforms to the NKF-ASN Task Force Recommendations. Performed By: #### 4 6124 #### LAB [address] [id number] Jack Mendoza M.D. [id number] Potassium [Moles/Vol] 4.4 mmol/L Normal 3.5-5.1 [facility] Comment on above: Order Comment: [facility] has implemented the eGFR calculation approach that does not have a coefficient for race that conforms to the NKF-ASN Task Force Recommendations. Result Comment: Slig htly Hemolyzed Performed By: #### 4 6124 #### LAB [address] [address] Jack Mendoza M.D. [id number] Sodium [Moles/Vol] 135 mmol/L Normal 135-145 [facility] Comment on above: Order Comment: [facility] has implemented the eGFR calculation approach that does not have a coefficient for race that conforms to the NKF-ASN Task Force Recommendations. Performed By: #### 4 6124 #### LAB [address] [id number] Jack Mendoza M.D. [id number] Urea nitrogen [Mass/Vol] 13 mg/dL Normal 8-25 [facility] Comment on above: Order Comment: [facility] has implemented the eGFR calculation approach that does not have a coefficient for race that conforms to the NKF-ASN Task Force Recommendations. Performed By: #### 4 6124 #### LAB [address] [place], [place] [address] Jack Mendoza M.D. [id number] Urea nitrogen/Creatinine [Mass ratio] 27.7 mg/mg High 10.0-20.0 [facility] Comment on above: Order Comment: [facility] has implemented the eGFR calculation approach that does not have a coefficient for race that conforms to the NKF-ASN Task Force Recommendations. Performed By: #### 4 6124 ####[facility] [address] [place], [place] [address] Jack Mendoza M.D. [id number] BLOOD CULTURE AEROBIC/ANAERO BICon 04-02-2025 BLOOD CULTURE AEROBIC/ANAEROBIC BLOOD CULTURE No Growth after 5 days Normal [facility] Comment on above: Performed By: #### 4 4014 ####[facility] [address] [place] [address] Venancio Richardson M.D. [id number] Basic metabolic 2000 panelOr dered By: Caty Sanchez on 04-02-2025 Anion gap [Moles/Vol] 11 mmol/L 10 - 20 mmol/L [facility] Calcium [Mass/Vol] 8.8 mg/dL 8.4 - 10. 2 mg/dL [facility] Chloride [Moles/Vol] 99 mmol/L 98 - 10 8 mmol/L [facility] Creatinine [Mass/Vol] 0.47 mg/dL Low 0.50 - 1.30 mg/dL [facility] GFR/1.73 sq M.predicted CKD-EPI (S/P/Bld) [Vol rate/Area] 120 - PINF [facility] Comment on above: Estimated GFR was ca lculated using the 2020 CKD-EPI creatinine equation. Glucose [Mass/Vol] 110 mg/dL High 65 - 99 mg/dL [facility] HCO3 [Moles/Vol] 29 mmol/L 21 - 32 mmol/L [facility] Interpretation and review of laboratory results Abnormal [facility] Potassium [Moles/Vol] 4.4 mmol/L 3.5 - 5.1 mmol/L [facility] Comment on above: Slightly Hemolyzed Sodium [Moles/Vol] 135 mmol/L 135 - 145 mmol/L [facility] Urea nitrogen [Mass/Vol] 13 mg/dL 8 - 25 mg/dL [facility] Urea nitrogen/Creatinine [Mass ratio] 27.7 mg/mg High 10.0 - 20.0 [facility] has implemented the eGFR calculation approach that does not have a coefficient for race that conforms to the NKF-ASN Task Force Recommendations. [facility] CBC Auto Differentialon 03-22 Basophils (Bld) [#/Vol] 0.01 10*3/uL [facility] Basophils/100 WBC (Bld) 0.3 % [facility] Eosinophils (Bld) [#/Vol] 0.04 10*3/uL [facility] Eosinophils/100 WBC (Bld) 1.3 % [facility] Erythrocyte distribution width (RBC) [Entitic vol] 18.7 % High 11.6 - 14.8 % [facility] Hematocrit (Bld) [Volume fraction] 35.8 % Low 41.0 - 53.0 % [facility] Hemoglobin (Bld) [Mass/Vol] 10.9 g/dL Low 13.5 - 17.5 g/dL [facility] Immature granulocytes (Bld) [#/Vol] 0.03 10*3/uL [facility] Immature granulocytes/100 WBC (Bld) 1 % [facility] Comment on above: The IG parameter is the percentage of metamyelocytes, myelocytes and promyelocytes. An immature granulocyte count (IG) of 1% or more suggests the possibility of infection, an IG count of 3% is very likely related to an infection. Lymphocytes (Bld) [#/Vol] 0.47 10*3/uL Low [facility] Lymphocytes/100 WBC (Bld) 15.7 % [facility] MCH (RBC) [Entitic mass] 21.6 pg Low 26.0 - 34.0 pg [facility] MCHC (RBC) [Mass/Vol] 30.4 g/dL Low 31.0 - 37.0 g/dL [facility] MCV (RBC) [Entitic vol] 71 fL Low 80.0 - 100.0 fL [facility] Monocytes (Bld) [#/Vol] 0.25 10*3/uL Low [facility] Monocytes/100 WBC (Bld) 8.3 % [facility] Neutrophils (Bld) [#/Vol] 2.2 10*3/uL [facility] Neutrophils/100 WBC (Bld) 73.4 % [facility] Comment on above: Peripheral smear rev iewed manually Nucleated RBC (Bld) [#/Vol] 0 10*3/uL [facility] Nucleated RBC/100 WBC (Bld) [Ratio] 0 % [facility] Platelets (Bld) [#/Vol] 117 10*3/uL Low [facility] RBC (Bld) [#/Vol] 5.04 10*6/uL [facility] WBC (Bld) [#/Vol] 3 10*3/uL Low [facility] CBC WITH AUTO DIFFERENTIALon 04-02-2025 AUTO NRBC 0.0 % [facility] Comment on above: Performed By: #### L [id number] #### LAB [address] [place] [address] Jack Mendoza M.D. [id number] AUTO NRBC ABS COUNT 0.00 K/mcL Normal 0.00-0.00 [facility] Comment on above: Performed By: #### L [id number] #### LAB [address] [place] [address] Jack Mendoza M.D. [id number] BASOPHILS ABSOLUTE COUNT 0.01 K/mcL Normal 0.00-0.30 [facility] Comment on above: Performed By: #### L [id number] #### LAB [address] [place] [address] Jack Mendoza M.D. [id number] Basophils/100 WBC (Bld) 0.3 % [facility] Comment on above: Performed By: #### L [id number] #### LAB [address] [place] [address] Jack Mendoza M.D. [id number] Eosinophils (Bld) [#/Vol] 0.04 10*3/uL Normal 0.00-0.50 [facility] Comment on above: Performed By: #### L [id number] #### LAB [address] [place] [address] Jack Mendoza M.D. [id number] Eosinophils/100 WBC (Bld) 1.3 % Normal [facility] Comment on above: Performed By: #### L [id number] #### LAB [address] [address] Jack Mendoza M.D. [id number] Erythrocyte distribution width (RBC) [Ratio] 18.7 % High 11.6-14.8 [facility] Comment on above: Performed By: #### L [id number] #### LAB [address] [address] Jack Mendoza M.D. [id number] Hematocrit (Bld) [Volume fraction] 35.8 % Low 41.0-53.0 [facility] Comment on above: Performed By: #### L [id number] #### LAB [address] [address] Jack Mendoza M.D. [id number] Hemoglobin (Bld) [Mass/Vol] 10.9 g/dL Low 13.5-17.5 [facility] Comment on above: Performed By: #### L [id number] #### LAB [address] [address] Jack Mendoza M.D. [id number] IG ABSOLUTE 0.03 K/mcL Normal 0.00-0.30 [facility] Comment on above: Performed By: #### L [id number] #### LAB [address] [address] Jack Mendoza M.D. [id number] IG PERCENT 1.00 % Normal [facility] Comment on above: Result Comment: The IG parameter is the percentage of metamyelocytes, myelocytes and promyelocytes. An immature granulocyte count (IG) of 1% or more suggests the possibility of infection, an IG count of 3% is very likely related to an infection. Performed By: #### L [id number] #### LAB [address] [place] [address] Jack Mendoza M.D. [id number] Lymphocytes (Bld) [#/Vol] 0.47 10*3/uL Low 0.90-4.00 [facility] Comment on above: Performed By: #### L [id number] #### LAB [address] [address] Jack Mendoza M.D. [id number] Lymphocytes/100 WBC (Bld) 15.7 % Normal [facility] Comment on above: Performed By: #### L [id number] #### LAB [address] [address] Jack Mendoza M.D. [id number] MCH (RBC) [Entitic mass] 21.6 pg Low 26.0-34.0 [facility] Comment on above: Performed By: #### L [id number] #### LAB [address] [address] Jack Mendoza M.D. [id number] MCV (RBC) [Entitic vol] 71.0 fL Low 80.0-100.0 [facility] Comment on above: Performed By: #### L [id number] #### LAB [address] [address] Jack Mendoza M.D. [id number] MEAN CORPUSCULAR HEMOGLOBIN CONC 30.4 g/dL Low 31.0-37.0 [facility] Comment on above: Performed By: #### L [id number] #### LAB [address] [address] Jack Mendoza M.D. [id number] Monocytes (Bld) [#/Vol] 0.25 10*3/uL Low 0.30-0.90 [facility] Comment on above: Performed By: #### L [id number] #### LAB [address] [address] Jack Mendoza M.D. [id number] Monocytes/100 WBC (Bld) 8.3 % Normal [facility] Comment on above: Performed By: #### L [id number] #### LAB [address] [address] Jack Mendoza M.D. [id number] NEUTROPHILS ABSOLUTE COUNT 2.20 K/mcL Normal 1.70-7.00 [facility] Comment on above: Performed By: #### L [id number] #### LAB [address] [address] Jack Mendoza M.D. [id number] Neutrophils/100 WBC (Bld) 73.4 % Normal [facility] Comment on above: Result Comment: Tiffany pheral smear reviewed manually Performed By: #### L [id number] ####[facility] [address] [address] Jack Mendoza M.D. [id number] Platelets (Bld) [#/Vol] 117 10*3/uL Low 150-400 [facility] Comment on above: Performed By: #### L [id number] ####[facility] LAB [address] [address] Jack Mendoza M.D. [id number] RBC (Bld) [#/Vol] 5.04 10*6/uL Normal 4.50-5.90 [facility] Comment on above: Performed By: #### L [id number] #### LAB [address] [address] Jack Mendoza M.D. [id number] WBC (Bld) [#/Vol] 3.00 10*3/uL Low 4.50-11.00 [facility] Comment on above: Performed By: #### L [id number] #### LAB [address] [address] Jack Mendoza M.D. [id number] CBC and Diff Morphologyon Roe cells LM Ql (Bld) Few [facility] Ovalocytes LM Ql (Bld) Moderate [facility] Platelets LM Ql (Bld) Decreased Abnormal Normal [facility] Polychromasia LM Ql (Bld) Few [facility] RBC morphology finding Nom (Bld) See Comment [facility] Comment on above: RBC Indices confirme d with manual peripheral smear review. Target cells LM Ql (Bld) Few [facility] CRP [Mass/Vol]on 04-02-2025 Interpretation and review of laboratory results Abnormal [facility] CRP, INFLAMMATIONon 04-02-20 CRP [Mass/Vol] 16.3 mg/L High 0.0-10.0 [facility] Comment on above: Performed By: #### 4 5334 #### LAB [address] [id number] Jack Mendoza M.D. [id number] CRP, Inflammationon 04-02-20 CRP [Mass/Vol] 16.3 mg/L High 0.0 - 10.0 mg/L [facility] ED Prov Noteon 04-02-2025 ED Prov Note Normal [facility] ESR Westergren method (Bld) [Velocity]on 04-02-2025 ESR (Bld) [Velocity] 64 mm/h High [facility] Interpretation and review of laboratory results Abnormal [facility] Combs Topon 04-02-2025 Extra Tube Hold for add-ons. [facility] Comment on above: Auto resulted. [facility] H AND Mike 04-02-2025 H AND P Normal [facility] HEPATIC FUNCTION PANELon Albumin [Mass/Vol] 3.4 g/dL Normal 3.2-5.2 [facility] Comment on above: Performed By: #### 4 5866 #### LAB [address] [address] Jack Mendoza M.D. [id number] ALP [Catalytic activity/Vol] 91 U/L Normal 40-150 [facility] Comment on above: Performed By: #### 4 5866 #### LAB [address] [address] Jack Mendoza M.D. [id number] ALT [Catalytic activity/Vol] 13 U/L Normal 0-50 U/L [facility] Comment on above: Performed By: #### 4 5866 ####[facility] [address] [id number] Jack Mendoza M.D. [id number] AST [Catalytic activity/Vol] 33 U/L Normal 0-50 U/L [facility] Comment on above: Result Comment: Slig htly Hemolyzed Performed By: #### 4 5866 #### LAB [address] [id number] Jack Mendoza M.D. [id number] Bilirubin [Mass/Vol] 0.9 mg/dL Normal 0.0-1.3 [facility] Comment on above: Performed By: #### 4 5866 ####[facility] [address] [place], [place] [address] Jack Mendoza M.D. [id number] Bilirubin.indirect [Mass/Vol] 0.3 mg/dL Normal 0.0-0.4 [facility] Comment on above: Result Comment: Slig htly Hemolyzed Performed By: #### 4 5866 ####[facility] [address] [place], [place] [address] Jack Mendoza M.D. [id number] Protein [Mass/Vol] 8.0 g/dL Normal 6.0-8.0 [facility] Comment on above: Performed By: #### 4 5866 #### LAB [address] [place], [place] [address] Jack Mednoza M.D. [id number] Hepatic function 2000 panelo n 04-02-2025 Albumin [Mass/Vol] 3.4 g/dL 3.2 - 5.2 g/dL [facility] ALP [Catalytic activity/Vol] 91 U/L 40 - 150 U/L [facility] ALT [Catalytic activity/Vol] 13 U/L 0 - 50 U/L [facility] AST [Catalytic activity/Vol] 33 U/L 0 - 50 U/L [facility] Comment on above: Slightly Hemolyzed Bilirubin [Mass/Vol] 0.9 mg/dL 0.0 - 1 .3 mg/dL [facility] Bilirubin.conjugated [Mass/Vol] 0.3 mg/dL 0.0 - 0.4 mg/dL [facility] Comment on above: Slightly Hemolyzed Interpretation and review of laboratory results Normal [facility] Protein [Mass/Vol] 8 g/dL 6.0 - 8.0 g/dL [facility] MORPHOLOGYon 04-02-2025 ROE CELLS Few Normal [facility] Comment on above: Performed By: #### L [id number] ####[facility] [address] [place], [place] [address] Jack Mendoza M.D. [id number] OVAL SCAN Moderate Normal [facility] Comment on above: Performed By: #### L [id number] ####[facility] [address] [place], [place] [address] Jack Mendoza M.D. [id number] PLATELET ESTIMATE Decreased Abnormal Normal [facility] Comment on above: Performed By: #### L [id number] ####[facility] [address] [id number] Jack Mendoza M.D. [id number] POLY SCAN Few Normal [facility] Comment on above: Performed By: #### L [id number] ####[facility] [address] [id number] Jack Mendoza M.D. [id number] RBC MORPH SCAN See Comment Normal [facility] Comment on above: Result Comment: RBC Indices confirmed with manual peripheral smear review. Performed By: #### L [id number] ####[facility] [address] [address] Jack Mendoza M.D. [id number] TARGET CELL SCAN Few Normal [facility] Comment on above: Performed By: #### L [id number] ####[facility] [address] [address] Jack Mendoza M.D. [id number] NT PRO BNPon 04-02-2025 Natriuretic peptide B (Bld) [Mass/Vol] 189 pg/mL Normal 0-300 [facility] Comment on above: Order Comment: Pride Study Cut-offsRule In:< /= 50 Years >450 pg/mL51 Years - 75 Years >900 pg/mL76 Years - 99 Years >1800 pg/mLRule Out:All patients <300 pg/mL Performed By: #### 4 7395 ####[facility] [address] [address] Jack Mendoza M.D. [id number] NT Pro BNPon 04-02-2025 Natriuretic peptide.B prohormone N-Terminal [Mass/Vol] 189 pg/mL 0 - 300 pg/mL [facility] Natriuretic peptide.B prohor randi N-Terminal [Mass/Vol]on 04-02-2025 Interpretation and review of laboratory results Normal [facility] Pride Study Cut-offs Rule In: < /= 50 Years >450 pg/mL 51 Years - 75 Years >900 pg/mL 76 Years - 99 Years >1800 pg/mL Rule Out: All patients <300 pg/mL [facility] No Panel Informationon 04-02 [facility] Interpretation and review of laboratory results Abnormal [facility] SEDIMENTATION RATEon 025 SEDIMENTATION RATE, ERYTHROCYTE 64 mm/hr High 0-20 [facility] Comment on above: Performed By: #### 4 6477 #### LAB [address] [address] Jack Mendoza M.D. [id number] TROPONIN X 2 (NOW AND REPEAT IN 2 HOURS)on 04-02-2025 TROPONIN T DELTA CHANGE INTERPRETATION Delta troponin requires at least 2 hours between collections. Normal [facility] Comment on above: Performed By: #### 4 6608 #### LAB [address] [address] Jack Mendoza M.D. [id number] TROPONIN T NG/L 8 ng/L Normal <=22 [facility] Comment on above: Performed By: #### 4 6608 #### LAB [address] [address] Jack Mendoza M.D. [id number] BASELINE TROPONIN T NG/L 8 ng/L Normal <=22 [facility] Comment on above: Performed By: #### 4 6608 #### LAB [address] [address] Jack Mendoza M.D. [id number] TROPONIN T INTERPRETATION Normal Normal [facility] Comment on above: Performed By: #### 4 6608 #### LAB [address] [address] Jack Mendoza M.D. [id number] Troponin x 2 (Now and Repeat in 2 hours)on 04-02-2025 Interp Troponin T Delta Change Delta troponin requires at least 2 hours between collections. [facility] Troponin T.cardiac High sensitivity method [Mass/Vol] 8 ng/L NINF - 22 ng/L [facility] Troponin T 8 ng/L NINF - 22 ng/L [facility] Troponin T Interpretation Normal [facility] XR CHEST PA/APon 04-02-2025 XR CHEST PA/AP Normal [facility] Comment on above: Order Comment: Injur y/Trauma or Illness?:Illness/OtherHow long have you had these symptoms (acute/chronic)?:AcuteReason for exam?:edemaHistory of cancer?:uSurgeries, chemotherapy, or radiation?:uType of Exam?:InitialAdditional signs and symptoms?:weakness XR Chest PA and Abdomen APon 04-02-2025 Low lung volumes with chronic interstitial changes. No consolidation or evidence congestive heart failure. Workstation ID: [id number] [employer] EXAMINATION: XR CHEST PA/AP 04/02/2025 1:11 pm [...] congestive heart failure. Degenerative changes spine shoulders. [facility] Carmen Garcia MD - 04/02/2025 EXAMINATION: [...] evidence congestive heart failure. Workstation ID: [id number] [facility] Radiology Study observation (narrative) [facility] XR Chest PA and Abdomen APOr dered By: Carmen Garcia on 04-02-2025 [facility] Work Phone: XR KNEE RIGHT 2 VIEWS (STAND NO)on 04-02-2025 XR KNEE RIGHT 2 VIEWS (STANDARD) Normal [facility] Comment on above: Order Comment: Injur y/Trauma or Illness?:Illness/OtherHow long have you had these symptoms (acute/chronic)?:AcuteReason for exam?:nki, weaknessHistory of cancer?:uSurgeries, chemotherapy, or radiation?:uType of Exam?:InitialAdditional signs and symptoms?:pain XR Knee - right 2 Viewson No acute process. Chronic changes including effusion. Workstation ID: [id number] [employer] RIS EXAMINATION: XR KNEE RIGHT 2 VIEWS [...] Chronic changes including effusion. Workstation ID: [id number] [facility] Radiology Study observation (narrative) [facility] BASIC METABOLIC PANELon 070 Anion gap [Moles/Vol] 12 mmol/L Normal 10-20 [facility] Comment on above: Order Comment: [facility] has implemented the eGFR calculation approach that does not have a coefficient for race that conforms to the NKF-ASN Task Force Recommendations. Performed By: #### 4 6124 ####[facility] [address] [place], [place] [address] Jack Mendoza M.D. [id number] Calcium [Mass/Vol] 8.3 mg/dL Low 8.4-10.2 [facility] Comment on above: Order Comment: [facility] has implemented the eGFR calculation approach that does not have a coefficient for race that conforms to the NKF-ASN Task Force Recommendations. Performed By: #### 4 6124 #### LAB [address] [address] Jack Mendoza M.D. [id number] Chloride [Moles/Vol] 102 mmol/L Normal 98-108 [facility] Comment on above: Order Comment: [facility] has implemented the eGFR calculation approach that does not have a coefficient for race that conforms to the NKF-ASN Task Force Recommendations. Performed By: #### 4 6124 #### LAB [address] [address] Jack Mendoza M.D. [id number] Creatinine [Mass/Vol] 0.72 mg/dL Normal 0.50-1.30 [facility] Comment on above: Order Comment: [facility] has implemented the eGFR calculation approach that does not have a coefficient for race that conforms to the NKF-ASN Task Force Recommendations. Performed By: #### 4 6124 #### LAB [address] [address] Jack Mendoza M.D. [id number] EGFR 106 mL/min/1.73 m2 Normal >=60 [facility] Comment on above: Order Comment: [facility] has implemented the eGFR calculation approach that does not have a coefficient for race that conforms to the NKF-ASN Task Force Recommendations. Result Comment: Ashley mated GFR was calculated using the 2020 CKD-EPI creatinine equation. Performed By: #### 4 6124 #### LAB [address] [address] Jack Mendoza M.D. [id number] Glucose [Mass/Vol] 102 mg/dL High 65-99 [facility] Comment on above: Order Comment: [facility] has implemented the eGFR calculation approach that does not have a coefficient for race that conforms to the NKF-ASN Task Force Recommendations. Performed By: #### 4 6124 #### LAB [address] [address] Jack Mendoza M.D. [id number] HCO3 (Bld) [Moles/Vol] 25 mmol/L Normal 21-32 [facility] Comment on above: Order Comment: [facility] has implemented the eGFR calculation approach that does not have a coefficient for race that conforms to the NKF-ASN Task Force Recommendations. Performed By: #### 4 6124 #### LAB [address] [address] Jack Mendoza M.D. [id number] Potassium [Moles/Vol] 4.2 mmol/L Normal 3.5-5.1 [facility] Comment on above: Order Comment: [facility] has implemented the eGFR calculation approach that does not have a coefficient for race that conforms to the NKF-ASN Task Force Recommendations. Performed By: #### 4 6124 #### LAB [address] [address] Jack Mendoza M.D. [id number] Sodium [Moles/Vol] 135 mmol/L Normal 135-145 [facility] Comment on above: Order Comment: [facility] has implemented the eGFR calculation approach that does not have a coefficient for race that conforms to the NKF-ASN Task Force Recommendations. Performed By: #### 4 [id number] #### LAB [address] [address] Jack Mendoza M.D. [id number] Urea nitrogen [Mass/Vol] 13 mg/dL Normal 8-25 [facility] Comment on above: Order Comment: [facility] has implemented the eGFR calculation approach that does not have a coefficient for race that conforms to the NKF-ASN Task Force Recommendations. Performed By: #### 4 6146 #### LAB [address] [address] Jack Menodza M.D. [id number] Urea nitrogen/Creatinine [Mass ratio] 18.1 mg/mg Normal 10.0-20.0 [facility] Comment on above: Order Comment: [facility] has implemented the eGFR calculation approach that does not have a coefficient for race that conforms to the NKF-ASN Task Force Recommendations. Performed By: #### 4 6124 #### LAB [address] [place] [address] Jack Mendoza M.D. [id number] CBC WITH AUTO DIFFERENTIALon 02-21-2025 AUTO NRBC 0.0 % [facility] Comment on above: Performed By: #### L [id number] #### LAB [address] [place] [address] Jack Mendoza M.D. [id number] AUTO NRBC ABS COUNT 0.00 K/mcL Normal 0.00-0.00 [facility] Comment on above: Performed By: #### L [id number] #### LAB [address] [place] [address] Jack Mendoza M.D. [id number] BASOPHILS ABSOLUTE COUNT 0.01 K/mcL Normal 0.00-0.30 [facility] Comment on above: Performed By: #### L [id number] #### LAB [address] [place] [address] Jack Mendoza M.D. [id number] Basophils/100 WBC (Bld) 0.3 % [facility] Comment on above: Performed By: #### L [id number] #### LAB [address] [place] [address] Jack Mendoza M.D. [id number] Eosinophils (Bld) [#/Vol] 0.09 10*3/uL Normal 0.00-0.50 [facility] Comment on above: Performed By: #### L [id number] #### LAB [address] [place] [address] Jack Mendoza M.D. [id number] Eosinophils/100 WBC (Bld) 2.9 % [facility] Comment on above: Performed By: #### L [id number] #### LAB [address] [address] Jack Mendoza M.D. [id number] Erythrocyte distribution width (RBC) [Ratio] 19.2 % High 11.6-14.8 [facility] Comment on above: Performed By: #### L [id number] #### LAB [address] [address] Jack Mendoza M.D. [id number] Hematocrit (Bld) [Volume fraction] 32.1 % Low 41.0-53.0 [facility] Comment on above: Performed By: #### L [id number] #### LAB [address] [address] Jack Mendoza M.D. [id number] Hemoglobin (Bld) [Mass/Vol] 9.8 g/dL Low 13.5-17.5 [facility] Comment on above: Performed By: #### L [id number] #### LAB [address] [address] Jack Mendoza M.D. [id number] IG ABSOLUTE 0.01 K/mcL Normal 0.00-0.30 [facility] Comment on above: Performed By: #### L [id number] #### LAB [address] [address] Jack Mendoza M.D. [id number] IG PERCENT 0.30 % Normal [facility] Comment on above: Result Comment: The IG parameter is the percentage of metamyelocytes, myelocytes and promyelocytes. An immature granulocyte count (IG) of 1% or more suggests the possibility of infection, an IG count of 3% is very likely related to an infection. Performed By: #### L [id number] #### LAB [address] [place] [address] Jack Mendoza M.D. [id number] Lymphocytes (Bld) [#/Vol] 0.78 10*3/uL Low 0.90-4.00 [facility] Comment on above: Performed By: #### L [id number] ####[facility] LAB [address] [address] Jack Mendoza M.D. [id number] Lymphocytes/100 WBC (Bld) 25.3 % Normal [facility] Comment on above: Performed By: #### L [id number] #### LAB [address] [address] Jack Mendoza M.D. [id number] MCH (RBC) [Entitic mass] 20.7 pg Low 26.0-34.0 [facility] Comment on above: Performed By: #### L [id number] #### LAB [address] [address] Jack Mendoza M.D. [id number] MCV (RBC) [Entitic vol] 67.9 fL Low 80.0-100.0 [facility] Comment on above: Performed By: #### L [id number] #### LAB [address] [address] Jack Mendoza M.D. [id number] MEAN CORPUSCULAR HEMOGLOBIN CONC 30.5 g/dL Low 31.0-37.0 [facility] Comment on above: Performed By: #### L [id number] #### LAB [address] [address] Jack Mendoza M.D. [id number] Monocytes (Bld) [#/Vol] 0.35 10*3/uL Normal 0.30-0.90 [facility] Comment on above: Performed By: #### L [id number] #### LAB [address] [address] Jack Mendoza M.D. [id number] Monocytes/100 WBC (Bld) 11.4 % Normal [facility] Comment on above: Performed By: #### L [id number] #### LAB [address] [address] Jack Mendoza M.D. [id number] NEUTROPHILS ABSOLUTE COUNT 1.84 K/mcL Normal 1.70-7.00 [facility] Comment on above: Performed By: #### L [id number] #### LAB [address] [address] Jack Mendoza M.D. [id number] Neutrophils/100 WBC (Bld) 59.8 % [facility] Comment on above: Result Comment: Tiffany pheral smear reviewed manually Performed By: #### L [id number] #### LAB [address] [address] Jack Mendoza M.D. [id number] Platelets (Bld) [#/Vol] 111 10*3/uL Low 150-400 [facility] Comment on above: Performed By: #### L [id number] #### LAB [address] [address] Jack Mendoza M.D. [id number] RBC (Bld) [#/Vol] 4.73 10*6/uL Normal 4.50-5.90 [facility] Comment on above: Performed By: #### L [id number] #### LAB [address] [address] Jack Mendoza M.D. [id number] WBC (Bld) [#/Vol] 3.08 10*3/uL Low 4.50-11.00 [facility] Comment on above: Performed By: #### L [id number] #### LAB [address] [address] Jack Mendoza M.D. [id number] Disch [place] 02-21-2025 Disch [facility] MAGNESIUM LEVELon 02-21-2025 Magnesium [Mass/Vol] 1.8 mg/dL Normal 1.6-2.4 [facility] Comment on above: Performed By: #### 4 6109 #### LAB [address] [address] Jack Mendoza M.D. [id number] MORPHOLOGYon 02-21-2025 OVAL SCAN Few [facility] Comment on above: Performed By: #### L [id number] #### LAB [address] [address] Jack Mendoza M.D. [id number] PLATELET ESTIMATE Decreased Abnormal Normal [facility] Comment on above: Performed By: #### L AB295 ####[facility] LAB [address] [id number] Jack Mendoza M.D. [id number] POLY SCAN Few Normal [facility] Comment on above: Performed By: #### L [id number] ####[facility] LAB [address] [address] Jack Mendoza M.D. [id number] RBC MORPH SCAN See Comment Normal [facility] Comment on above: Result Comment: RBC Indices confirmed with manual peripheral smear review. Performed By: #### L AB295 ####[facility] LAB [address] [address] Jack Mendoza M.D. [id number] TARGET CELL SCAN Few Normal [facility] Comment on above: Performed By: #### L [id number] ####[facility] LAB [address] [address] Jack Mendoza M.D. [id number] CONSULTon 02-19-2025 CONSULT Normal [facility] XR MANDIBLE LESS THAN 4 VIEW S (PANOREX)on 02-19-2025 XR MANDIBLE LESS THAN 4 VIEWS (PANOREX) [facility] Comment on above: Order Comment: Injur y/Trauma or Illness?:Illness/OtherHow long have you had these symptoms (acute/chronic)?:AcuteReason for exam?:Multiple dental caries and possible abscessHistory of cancer?:uSurgeries, chemotherapy, or radiation?:uType of Exam?:InitialAdditional signs and symptoms?:Multiple dental caries and possible abscess BASIC METABOLIC PANELon 3 Anion gap [Moles/Vol] 12 mmol/L Normal - [facility] Comment on above: Order Comment: [facility] has implemented the eGFR calculation approach that does not have a coefficient for race that conforms to the NKF-ASN Task Force Recommendations. Performed By: #### 4 6124 ####[facility] LAB [address] [address] Jack Mendoza M.D. [id number] Calcium [Mass/Vol] 8.9 mg/dL Normal 8.4-10.2 [facility] Comment on above: Order Comment: [facility] has implemented the eGFR calculation approach that does not have a coefficient for race that conforms to the NKF-ASN Task Force Recommendations. Performed By: #### 4 6124 #### LAB [address] [address] Jack Mendoza M.D. [id number] Chloride [Moles/Vol] 106 mmol/L Normal 98-108 [facility] Comment on above: Order Comment: [facility] has implemented the eGFR calculation approach that does not have a coefficient for race that conforms to the NKF-ASN Task Force Recommendations. Performed By: #### 4 6124 #### LAB [address] [address] Jack Mendoza M.D. [id number] Creatinine [Mass/Vol] 0.77 mg/dL Normal 0.50-1.30 [facility] Comment on above: Order Comment: [facility] has implemented the eGFR calculation approach that does not have a coefficient for race that conforms to the NKF-ASN Task Force Recommendations. Performed By: #### 4 6124 #### LAB [address] [address] Jack Mendoza M.D. [id number] EGFR 104 mL/min/1.73 m2 Normal >=60 [facility] Comment on above: Order Comment: [facility] has implemented the eGFR calculation approach that does not have a coefficient for race that conforms to the NKF-ASN Task Force Recommendations. Result Comment: Ashley mated GFR was calculated using the 2020 CKD-EPI creatinine equation. Performed By: #### 4 6124 #### LAB [address] [address] Jack Mendoza M.D. [id number] Glucose [Mass/Vol] 95 mg/dL Normal 65-99 [facility] Comment on above: Order Comment: [facility] has implemented the eGFR calculation approach that does not have a coefficient for race that conforms to the NKF-ASN Task Force Recommendations. Performed By: #### 4 6124 #### LAB [address] [address] Jack Mendoza M.D. [id number] HCO3 (Bld) [Moles/Vol] 25 mmol/L Normal 21-32 [facility] Comment on above: Order Comment: [facility] has implemented the eGFR calculation approach that does not have a coefficient for race that conforms to the NKF-ASN Task Force Recommendations. Performed By: #### 4 6124 #### LAB [address] [address] Jack Mendoza M.D. [id number] Potassium [Moles/Vol] 3.9 mmol/L Normal 3.5-5.1 [facility] Comment on above: Order Comment: [facility] has implemented the eGFR calculation approach that does not have a coefficient for race that conforms to the NKF-ASN Task Force Recommendations. Performed By: #### 4 6124 #### LAB [address] [address] Jack Mendoza M.D. [id number] Sodium [Moles/Vol] 139 mmol/L Normal 135-145 [facility] Comment on above: Order Comment: [facility] has implemented the eGFR calculation approach that does not have a coefficient for race that conforms to the NKF-ASN Task Force Recommendations. Performed By: #### 4 6124 #### LAB [address] [address] Jack Mendoza M.D. [id number] Urea nitrogen [Mass/Vol] 10 mg/dL Normal 8-25 [facility] Comment on above: Order Comment: [facility] has implemented the eGFR calculation approach that does not have a coefficient for race that conforms to the NKF-ASN Task Force Recommendations. Performed By: #### 4 6124 #### LAB [address] [address] Jack Mendoza M.D. [id number] Urea nitrogen/Creatinine [Mass ratio] 13.0 mg/mg Normal 10.0-20.0 [facility] Comment on above: Order Comment: [facility] has implemented the eGFR calculation approach that does not have a coefficient for race that conforms to the NKF-ASN Task Force Recommendations. Performed By: #### 4 6124 #### LAB [address] [address] Jack Mendoza M.D. [id number] CBC WITH AUTO DIFFERENTIALon 02-18-2025 AUTO NRBC 0.0 % [facility] Comment on above: Performed By: #### L [id number] ####[facility] LAB [address] [address] Jack Mendoza M.D. [id number] AUTO NRBC ABS COUNT 0.00 K/mcL Normal 0.00-0.00 [facility] Comment on above: Performed By: #### L [id number] #### LAB [address] [place] [address] Jack Mendoza M.D. [id number] BASOPHILS ABSOLUTE COUNT 0.00 K/mcL Normal 0.00-0.30 [facility] Comment on above: Performed By: #### L [id number] #### LAB [address] [place] [address] Jack Mendoza M.D. [id number] Basophils/100 WBC (Bld) 0.0 % [facility] Comment on above: Performed By: #### L [id number] #### LAB [address] [place] [address] Jack Mendoza M.D. [id number] Eosinophils (Bld) [#/Vol] 0.09 10*3/uL Normal 0.00-0.50 [facility] Comment on above: Performed By: #### L [id number] #### LAB [address] [place] [address] Jack Mendoza M.D. [id number] Eosinophils/100 WBC (Bld) 3.4 % [facility] Comment on above: Performed By: #### L [id number] #### LAB [address] [place] [address] Jack Mendoza M.D. [id number] Erythrocyte distribution width (RBC) [Ratio] 19.2 % High 11.6-14.8 [facility] Comment on above: Performed By: #### L [id number] #### LAB [address] [address] Jack Mendoza M.D. [id number] Hematocrit (Bld) [Volume fraction] 32.4 % Low 41.0-53.0 [facility] Comment on above: Performed By: #### L [id number] #### LAB [address] [address] Jack Mendoza M.D. [id number] Hemoglobin (Bld) [Mass/Vol] 9.9 g/dL Low 13.5-17.5 [facility] Comment on above: Performed By: #### L [id number] #### LAB [address] [address] Jack Mendoza M.D. [id number] IG ABSOLUTE 0.01 K/mcL Normal 0.00-0.30 [facility] Comment on above: Performed By: #### L [id number] #### LAB [address] [address] Jack Mendoza M.D. [id number] IG PERCENT 0.40 % Normal [facility] Comment on above: Result Comment: The IG parameter is the percentage of metamyelocytes, myelocytes and promyelocytes. An immature granulocyte count (IG) of 1% or more suggests the possibility of infection, an IG count of 3% is very likely related to an infection. Performed By: #### L [id number] #### LAB [address] [address] Jack Mendoza M.D. [id number] Lymphocytes (Bld) [#/Vol] 0.67 10*3/uL Low 0.90-4.00 [facility] Comment on above: Performed By: #### L [id number] #### LAB [address] [place] [address] Jack Mendoza M.D. [id number] Lymphocytes/100 WBC (Bld) 25.5 % Normal [facility] Comment on above: Performed By: #### L [id number] #### LAB [address] [address] Jack Mendoza M.D. [id number] MCH (RBC) [Entitic mass] 20.6 pg Low 26.0-34.0 [facility] Comment on above: Performed By: #### L [id number] #### LAB [address] [address] Jack Mendoza M.D. [id number] MCV (RBC) [Entitic vol] 67.4 fL Low 80.0-100.0 [facility] Comment on above: Performed By: #### L [id number] #### LAB [address] [address] Jack Mendoza M.D. [id number] MEAN CORPUSCULAR HEMOGLOBIN CONC 30.6 g/dL Low 31.0-37.0 [facility] Comment on above: Performed By: #### L [id number] #### LAB [address] [address] Jack Mendoza M.D. [id number] Monocytes (Bld) [#/Vol] 0.21 10*3/uL Low 0.30-0.90 [facility] Comment on above: Performed By: #### L [id number] #### LAB [address] [place] [address] Jack Mendoza M.D. [id number] Monocytes/100 WBC (Bld) 8.0 % Normal [facility] Comment on above: Performed By: #### L [id number] #### LAB [address] [place] [address] Jack Mendoza M.D. [id number] NEUTROPHILS ABSOLUTE COUNT 1.65 K/mcL Low 1.70-7.00 [facility] Comment on above: Performed By: #### L CT7351 #### LAB [address] [place] [address] Jack Mendoza M.D. [id number] Neutrophils/100 WBC (Bld) 62.7 % Normal [facility] Comment on above: Performed By: #### L [id number] ####[facility] LAB [address] [address] Jack Mendoza M.D. [id number] Platelets (Bld) [#/Vol] 82 10*3/uL Low 150-400 [facility] Comment on above: Performed By: #### L [id number] #### LAB [address] [address] Jack Mendoza M.D. [id number] RBC (Bld) [#/Vol] 4.81 10*6/uL Normal 4.50-5.90 [facility] Comment on above: Performed By: #### L [id number] ####[facility] LAB [address] [address] Jack Mendoza M.D. [id number] WBC (Bld) [#/Vol] 2.63 10*3/uL Low 4.50-11.00 [facility] Comment on above: Performed By: #### L [id number] ####[facility] LAB [address] [address] Jack Mendoza M.D. [id number] CONSULTon 02-18-2025 CONSULT Normal [facility] MAGNESIUM LEVELon 02-18-2025 Magnesium [Mass/Vol] 1.6 mg/dL Normal 1.6-2.4 [facility] Comment on above: Performed By: #### 4 6109 ####[facility] LAB [address] [address] Jack Mendoza M.D. [id number] [facility] Glucose [Mass/Vol] 102 mg/dL High 65-99 [facility] Comment on above: Performed By: #### 4 6932 ####[facility] LAB [address] [address] Jack Mendoza M.D. [id number] BASIC METABOLIC PANELon 01-21 Anion gap [Moles/Vol] 14 mmol/L Normal 10-20 [facility] Comment on above: Order Comment: [facility] has implemented the eGFR calculation approach that does not have a coefficient for race that conforms to the NKF-ASN Task Force Recommendations. Performed By: #### 4 6124 #### LAB [address] [place], [place] [address] Jack Mendoza M.D. [id number] Calcium [Mass/Vol] 8.5 mg/dL Normal 8.4-10.2 [facility] Comment on above: Order Comment: [facility] has implemented the eGFR calculation approach that does not have a coefficient for race that conforms to the NKF-ASN Task Force Recommendations. Performed By: #### 4 6124 #### LAB [address] [id number] Jack Mendoza M.D. [id number] Chloride [Moles/Vol] 105 mmol/L Normal 98-108 [facility] Comment on above: Order Comment: [facility] has implemented the eGFR calculation approach that does not have a coefficient for race that conforms to the NKF-ASN Task Force Recommendations. Performed By: #### 4 6124 #### LAB [address] [id number] Jack Mendoza M.D. [id number] Creatinine [Mass/Vol] 0.93 mg/dL Normal 0.50-1.30 [facility] Comment on above: Order Comment: [facility] has implemented the eGFR calculation approach that does not have a coefficient for race that conforms to the NKF-ASN Task Force Recommendations. Performed By: #### 4 6167 #### LAB [address] [place], [place] [address] Jack Mendoza M.D. [id number] EGFR 95 mL/min/1.73 m2 Normal >=60 [facility] Comment on above: Order Comment: [facility] has implemented the eGFR calculation approach that does not have a coefficient for race that conforms to the NKF-ASN Task Force Recommendations. Result Comment: Ashley mated GFR was calculated using the 2020 CKD-EPI creatinine equation. Performed By: #### 4 6124 ####[facility] LAB [address] [address] Jack Mendoza M.D. [id number] Glucose [Mass/Vol] 131 mg/dL High 65-99 [facility] Comment on above: Order Comment: [facility] has implemented the eGFR calculation approach that does not have a coefficient for race that conforms to the NKF-ASN Task Force Recommendations. Performed By: #### 4 6124 #### LAB [address] [address] Jack Mendoza M.D. [id number] HCO3 (Bld) [Moles/Vol] 25 mmol/L Normal 21-32 [facility] Comment on above: Order Comment: [facility] has implemented the eGFR calculation approach that does not have a coefficient for race that conforms to the NKF-ASN Task Force Recommendations. Performed By: #### 4 6124 #### LAB [address] [address] Jack Mendoza M.D. [id number] Potassium [Moles/Vol] 3.8 mmol/L Normal 3.5-5.1 [facility] Comment on above: Order Comment: [facility] has implemented the eGFR calculation approach that does not have a coefficient for race that conforms to the NKF-ASN Task Force Recommendations. Performed By: #### 4 6124 #### LAB [address] [address] Jack Mendoza M.D. [id number] Sodium [Moles/Vol] 140 mmol/L Normal 135-145 [facility] Comment on above: Order Comment: [facility] has implemented the eGFR calculation approach that does not have a coefficient for race that conforms to the NKF-ASN Task Force Recommendations. Performed By: #### 4 6124 ####[facility] LAB [address] [address] Jack Mendoza M.D. [id number] Urea nitrogen [Mass/Vol] 14 mg/dL Normal 8-25 [facility] Comment on above: Order Comment: [facility] has implemented the eGFR calculation approach that does not have a coefficient for race that conforms to the NKF-ASN Task Force Recommendations. Performed By: #### 4 6124 #### LAB [address] [address] Jack Mendoza M.D. [id number] Urea nitrogen/Creatinine [Mass ratio] 15.1 mg/mg Normal 10.0-20.0 [facility] Comment on above: Order Comment: [facility] has implemented the eGFR calculation approach that does not have a coefficient for race that conforms to the NKF-ASN Task Force Recommendations. Performed By: #### 4 6124 #### LAB [address] [address] Jack Mendoza M.D. [id number] CBC WITH AUTO DIFFERENTIALon 02-17-2025 AUTO NRBC 0.0 % Normal [facility] Comment on above: Performed By: #### L [id number] ####[facility] LAB [address] [address] Jack Mendoza M.D. [id number] AUTO NRBC ABS COUNT 0.00 K/mcL Normal 0.00-0.00 [facility] Comment on above: Performed By: #### L [id number] ####[facility] LAB [address] [address] Jack Mendoza M.D. [id number] Erythrocyte distribution width (RBC) [Ratio] 19.2 % High 11.6-14.8 [facility] Comment on above: Performed By: #### L [id number] ####[facility] LAB [address] [address] Jack Mendoza M.D. [id number] Hematocrit (Bld) [Volume fraction] 33.2 % Low 41.0-53.0 [facility] Comment on above: Performed By: #### L AS2323 ####[facility] LAB [address] [address] Jack Mendoza M.D. [id number] Hemoglobin (Bld) [Mass/Vol] 10.1 g/dL Low 13.5-17.5 [facility] Comment on above: Performed By: #### L [id number] #### LAB [address] [address] Jack Mendoza M.D. [id number] MCH (RBC) [Entitic mass] 20.5 pg Low 26.0-34.0 [facility] Comment on above: Performed By: #### L [id number] #### LAB [address] [address] Jack Mendoza M.D. [id number] MCV (RBC) [Entitic vol] 67.5 fL Low 80.0-100.0 [facility] Comment on above: Performed By: #### L [id number] #### LAB [address] [address] Jack Mendoza M.D. [id number] MEAN CORPUSCULAR HEMOGLOBIN CONC 30.4 g/dL Low 31.0-37.0 [facility] Comment on above: Performed By: #### L [id number] #### LAB [address] [address] Jack Mendoza M.D. [id number] Platelet mean volume (Bld) [Entitic vol] 10.0 fL Normal 9.4-12.4 [facility] Comment on above: Performed By: #### L [id number] #### LAB [address] [address] Jack Mendoza M.D. [id number] Platelets (Bld) [#/Vol] 82 10*3/uL Low 150-400 [facility] Comment on above: Performed By: #### L [id number] ####[facility] [address] [address] Jack Mendoza M.D. [id number] RBC (Bld) [#/Vol] 4.92 10*6/uL Normal 4.50-5.90 [facility] Comment on above: Performed By: #### L [id number] ####[facility] LAB [address] [place] [address] Jack Mendoza M.D. [id number] WBC (Bld) [#/Vol] 2.50 10*3/uL Low 4.50-11.00 [facility] Comment on above: Performed By: #### L [id number] #### LAB [address] [address] Jack Mendoza M.D. [id number] CONSULTon 02-17-2025 CONSULT Normal [facility] CRP, INFLAMMATIONon 02-18-20 25 CRP [Mass/Vol] 23.7 mg/L High 0.0-10.0 [facility] Comment on above: Performed By: #### 4 5334 #### LAB [address] [address] Jack Mendoza M.D. [id number] MAGNESIUM LEVELon 02-17-2025 Magnesium [Mass/Vol] 1.6 mg/dL Normal 1.6-2.4 [facility] Comment on above: Performed By: #### 4 6109 #### LAB [address] [address] Jack Mendoza M.D. [id number] MANUAL DIFFERENTIALon 2024 BASOPHILS - ABS (DIFF) 0.00 K/mcL Normal 0.00-0.30 [facility] Comment on above: Performed By: #### 4 5456 #### LAB [address] [address] Jack Mendoza M.D. [id number] BASOPHILS - REL (DIFF) 0.0 % Normal [facility] Comment on above: Performed By: #### 4 5456 #### LAB [address] [address] Jack Mendoza M.D. [id number] EOSINOPHILS - ABS (DIFF) 0.08 K/mcL Normal 0.00-0.50 [facility] Comment on above: Performed By: #### 4 5456 #### LAB [address] [address] Jack Mendoza M.D. [id number] EOSINOPHILS - REL (DIFF) 3.0 % Normal [facility] Comment on above: Performed By: #### 4 5456 #### LAB [address] [address] Jack Mendoza M.D. [id number] LYMPHOCYTES - ABS (DIFF) 0.70 K/mcL Low 0.90-4.00 [facility] Comment on above: Performed By: #### 4 5456 #### LAB [address] [address] Jack Mendoza M.D. [id number] LYMPHOCYTES - REL (DIFF) 28.0 % [facility] Comment on above: Performed By: #### 4 5456 #### LAB [address] [address] Jack Mendoza M.D. [id number] MONOCYTES - ABS (DIFF) 0.10 K/mcL Low 0.30-0.90 [facility] Comment on above: Performed By: #### 4 5456 #### LAB [address] [address] Jack Mendoza M.D. [id number] MONOCYTES - REL (DIFF) 4.0 % [facility] Comment on above: Performed By: #### 4 5456 #### LAB [address] [address] Jack Mendoza M.D. [id number] NEUTROPHILS - ABS (DIFF) 1.63 K/mcL Low 1.70-7.00 [facility] Comment on above: Performed By: #### 4 5456 #### LAB [address] [address] Jack Mendoza M.D. [id number] NEUTROPHILS - REL (DIFF) 65.0 % [facility] Comment on above: Performed By: #### 4 5456 #### LAB [address] [address] Jack Mendoza M.D. [id number] MORPHOLOGYon 02-17-2025 OVAL SCAN Moderate [facility] Comment on above: Performed By: #### L [id number] #### LAB [address] [address] Jack Mendoza M.D. [id number] PLATELET ESTIMATE Decreased Abnormal Normal [facility] Comment on above: Performed By: #### L AB295 ####[facility] LAB [address] [id number] Jack Mendoza M.D. [id number] POLY SCAN Few [facility] Comment on above: Performed By: #### L AB295 ####[facility] LAB [address] [address] Jack Mendoza M.D. [id number] RBC MORPH SCAN See Comment [facility] Comment on above: Result Comment: RBC Indices confirmed with manual peripheral smear review. Performed By: #### L [id number] ####[facility] LAB [address] [id number] Jack Mendoza M.D. [id number] TARGET CELL SCAN Moderate Normal [facility] Comment on above: Performed By: #### L AB295 ####[facility] LAB [address] [address] Jack Mendoza M.D. [id number] PROCALCITONINon 02-17-2025 PROCALCITONIN 0.16 ng/ml Normal <0.50 [facility] Comment on above: Order Comment: Resul ts <0.50 ng/ml represent a low risk of severe sepsis and/or septic shock. Performed By: #### 4 7652 ####[facility] [address] [place] [address] Venancio Richardson M.D. [id number] SEDIMENTATION RATEon 025 SEDIMENTATION RATE, ERYTHROCYTE 113 mm/hr High 0-20 [facility] Comment on above: Performed By: #### 4 6477 ####[facility] LAB [address] [address] Jack Mendoza M.D. [id number] XR KNEE LEFT 2 VIEWS ([address] RD)on 02-17-2025 XR KNEE LEFT 2 VIEWS (STANDARD) [facility] Comment on above: Order Comment: Injur y/Trauma or Illness?:Illness/OtherHow long have you had these symptoms (acute/chronic)?:ChronicReason for exam?:Left knee pain and swellingHistory of cancer?:uSurgeries, chemotherapy, or radiation?:uType of Exam?:InitialAdditional signs and symptoms?:NKI BASIC METABOLIC PANELon 01-21 Anion gap [Moles/Vol] 13 mmol/L Normal 10-20 [facility] Comment on above: Order Comment: [facility] has implemented the eGFR calculation approach that does not have a coefficient for race that conforms to the NKF-ASN Task Force Recommendations. Performed By: #### 4 6124 #### LAB [address] [place], [place] [address] Jack Mendoza M.D. [id number] Calcium [Mass/Vol] 8.7 mg/dL Normal 8.4-10.2 [facility] Comment on above: Order Comment: [facility] has implemented the eGFR calculation approach that does not have a coefficient for race that conforms to the NKF-ASN Task Force Recommendations. Performed By: #### 4 6124 #### LAB [address] [address] Jack Mendoza M.D. [id number] Chloride [Moles/Vol] 105 mmol/L Normal 98-108 [facility] Comment on above: Order Comment: [facility] has implemented the eGFR calculation approach that does not have a coefficient for race that conforms to the NKF-ASN Task Force Recommendations. Performed By: #### 4 6124 #### LAB [address] [address] Jack Mendzoa M.D. [id number] Creatinine [Mass/Vol] 0.94 mg/dL Normal 0.50-1.30 [facility] Comment on above: Order Comment: [facility] has implemented the eGFR calculation approach that does not have a coefficient for race that conforms to the NKF-ASN Task Force Recommendations. Performed By: #### 4 6124 #### LAB [address] [address] Jack Mendoza M.D. [id number] EGFR 94 mL/min/1.73 m2 Normal >=60 [facility] Comment on above: Order Comment: [facility] has implemented the eGFR calculation approach that does not have a coefficient for race that conforms to the NKF-ASN Task Force Recommendations. Result Comment: Ashley mated GFR was calculated using the 2020 CKD-EPI creatinine equation. Performed By: #### 4 6141 #### LAB [address] [address] Jack Mendoza M.D. [id number] Glucose [Mass/Vol] 110 mg/dL High 65-99 [facility] Comment on above: Order Comment: [facility] has implemented the eGFR calculation approach that does not have a coefficient for race that conforms to the NKF-ASN Task Force Recommendations. Performed By: #### 4 6124 #### LAB [address] [address] aJck Mendoza M.D. [id number] HCO3 (Bld) [Moles/Vol] 26 mmol/L Normal 21-32 [facility] Comment on above: Order Comment: [facility] has implemented the eGFR calculation approach that does not have a coefficient for race that conforms to the NKF-ASN Task Force Recommendations. Performed By: #### 4 6193 #### LAB [address] [address] Jack Mendoza M.D. [id number] Potassium [Moles/Vol] 4.0 mmol/L Normal 3.5-5.1 [facility] Comment on above: Order Comment: [facility] has implemented the eGFR calculation approach that does not have a coefficient for race that conforms to the NKF-ASN Task Force Recommendations. Performed By: #### 4 6150 #### LAB [address] [address] Jack Mendoza M.D. [id number] Sodium [Moles/Vol] 140 mmol/L Normal 135-145 [facility] Comment on above: Order Comment: [facility] has implemented the eGFR calculation approach that does not have a coefficient for race that conforms to the NKF-ASN Task Force Recommendations. Performed By: #### 4 6136 #### LAB [address] [address] Jack Mendoza M.D. [id number] Urea nitrogen [Mass/Vol] 17 mg/dL Normal 8-25 [facility] Comment on above: Order Comment: [facility] has implemented the eGFR calculation approach that does not have a coefficient for race that conforms to the NKF-ASN Task Force Recommendations. Performed By: #### 4 6124 #### LAB [address] [address] Jack Mendoza M.D. [id number] Urea nitrogen/Creatinine [Mass ratio] 18.1 mg/mg Normal 10.0-20.0 [facility] Comment on above: Order Comment: [facility] has implemented the eGFR calculation approach that does not have a coefficient for race that conforms to the NKF-ASN Task Force Recommendations. Performed By: #### 4 6124 #### LAB [address] [address] Jack Mendoza M.D. [id number] CBC WITH AUTO DIFFERENTIALon 02-16-2025 AUTO NRBC 0.0 % [facility] Comment on above: Performed By: #### L [id number] ####[facility] LAB [address] [address] Jack Mendoza M.D. [id number] AUTO NRBC ABS COUNT 0.00 K/mcL Normal 0.00-0.00 [facility] Comment on above: Performed By: #### L [id number] ####[facility] LAB [address] [address] Jack Mendoza M.D. [id number] BASOPHILS ABSOLUTE COUNT 0.01 K/mcL Normal 0.00-0.30 [facility] Comment on above: Performed By: #### L [id number] ####[facility] LAB [address] [address] Jack Mendoza M.D. [id number] Basophils/100 WBC (Bld) 0.4 % [facility] Comment on above: Performed By: #### L [id number] #### LAB [address] [address] Jack Mendoza M.D. [id number] Eosinophils (Bld) [#/Vol] 0.08 10*3/uL Normal 0.00-0.50 [facility] Comment on above: Performed By: #### L [id number] #### LAB [address] [address] Jack Mendoza M.D. [id number] Eosinophils/100 WBC (Bld) 3.4 % Normal [facility] Comment on above: Performed By: #### L [id number] #### LAB [address] [address] Jack Mendoza M.D. [id number] Erythrocyte distribution width (RBC) [Ratio] 19.5 % High 11.6-14.8 [facility] Comment on above: Performed By: #### L [id number] #### LAB [address] [address] Jack Mendoza M.D. [id number] Hematocrit (Bld) [Volume fraction] 34.2 % Low 41.0-53.0 [facility] Comment on above: Performed By: #### L [id number] #### LAB [address] [place] [address] Jack Mendoza M.D. [id number] Hemoglobin (Bld) [Mass/Vol] 10.3 g/dL Low 13.5-17.5 [facility] Comment on above: Performed By: #### L [id number] #### LAB [address] [place] [address] Jack Mendoza M.D. [id number] IG ABSOLUTE 0.01 K/mcL Normal 0.00-0.30 [facility] Comment on above: Performed By: #### L [id number] #### LAB [address] [place] [address] Jack Mendoza M.D. [id number] IG PERCENT 0.40 % [facility] Comment on above: Result Comment: The IG parameter is the percentage of metamyelocytes, myelocytes and promyelocytes. An immature granulocyte count (IG) of 1% or more suggests the possibility of infection, an IG count of 3% is very likely related to an infection. Performed By: #### L [id number] #### LAB [address] [address] Jack Mendoza M.D. [id number] Lymphocytes (Bld) [#/Vol] 0.80 10*3/uL Low 0.90-4.00 [facility] Comment on above: Performed By: #### L [id number] #### LAB [address] [address] Jack Mendoza M.D. [id number] Lymphocytes/100 WBC (Bld) 34.3 % Normal [facility] Comment on above: Performed By: #### L [id number] #### LAB [address] [address] Jack Mendoza M.D. [id number] MCH (RBC) [Entitic mass] 20.4 pg Low 26.0-34.0 [facility] Comment on above: Performed By: #### L [id number] #### LAB [address] [address] Jack Mendoza M.D. [id number] MCV (RBC) [Entitic vol] 67.7 fL Low 80.0-100.0 [facility] Comment on above: Performed By: #### L [id number] #### LAB [address] [address] Jack Mendoza M.D. [id number] MEAN CORPUSCULAR HEMOGLOBIN CONC 30.1 g/dL Low 31.0-37.0 [facility] Comment on above: Performed By: #### L [id number] #### LAB [address] [place] [address] Jack Mendoza M.D. [id number] Monocytes (Bld) [#/Vol] 0.18 10*3/uL Low 0.30-0.90 [facility] Comment on above: Performed By: #### L [id number] #### LAB [address] [address] Jack Mendoza M.D. [id number] Monocytes/100 WBC (Bld) 7.7 % Normal [facility] Comment on above: Performed By: #### L [id number] #### LAB [address] [address] Jack Mnedoza M.D. [id number] NEUTROPHILS ABSOLUTE COUNT 1.25 K/mcL Low 1.70-7.00 [facility] Comment on above: Performed By: #### L [id number] #### LAB [address] [address] Jack Mendoza M.D. [id number] Neutrophils/100 WBC (Bld) 53.8 % Normal [facility] Comment on above: Performed By: #### L [id number] #### LAB [address] [address] Jack Mendoza M.D. [id number] Platelets (Bld) [#/Vol] 88 10*3/uL Low 150-400 [facility] Comment on above: Performed By: #### L [id number] #### LAB [address] [address] Jack Mendoza M.D. [id number] RBC (Bld) [#/Vol] 5.05 10*6/uL Normal 4.50-5.90 [facility] Comment on above: Performed By: #### L [id number] #### LAB [address] [address] Jack Mendoza M.D. [id number] WBC (Bld) [#/Vol] 2.33 10*3/uL Low 4.50-11.00 [facility] Comment on above: Performed By: #### L [id number] #### LAB [address] [address] Jack Mendoza M.D. [id number] MAGNESIUM LEVELon 02-16-2025 Magnesium [Mass/Vol] 1.9 mg/dL Normal 1.6-2.4 [facility] Comment on above: Performed By: #### 4 6109 #### LAB [address] [place], [place] [address] Jack Mendoza M.D. [id number] BASIC METABOLIC PANELon - Anion gap [Moles/Vol] 12 mmol/L Normal 10-20 [facility] Comment on above: Order Comment: [facility] has implemented the eGFR calculation approach that does not have a coefficient for race that conforms to the NKF-ASN Task Force Recommendations. Performed By: #### 4 6124 #### LAB [address] [place], [place] [address] Jack Mendoza M.D. [id number] Calcium [Mass/Vol] 8.7 mg/dL Normal 8.4-10.2 [facility] Comment on above: Order Comment: [facility] has implemented the eGFR calculation approach that does not have a coefficient for race that conforms to the NKF-ASN Task Force Recommendations. Performed By: #### 4 6124 #### LAB [address] [place], [place] [address] Jack Mendoza M.D. [id number] Chloride [Moles/Vol] 113 mmol/L High 98-108 [facility] Comment on above: Order Comment: [facility] has implemented the eGFR calculation approach that does not have a coefficient for race that conforms to the NKF-ASN Task Force Recommendations. Performed By: #### 4 6124 #### LAB [address] [place], [place] [address] Jack Mendoza M.D. [id number] Creatinine [Mass/Vol] 1.08 mg/dL Normal 0.50-1.30 [facility] Comment on above: Order Comment: [facility] has implemented the eGFR calculation approach that does not have a coefficient for race that conforms to the NKF-ASN Task Force Recommendations. Performed By: #### 4 6124 #### LAB [address] [place], [place] [address] Jack Mendoza M.D. [id number] EGFR 80 mL/min/1.73 m2 Normal >=60 [facility] Comment on above: Order Comment: [facility] has implemented the eGFR calculation approach that does not have a coefficient for race that conforms to the NKF-ASN Task Force Recommendations. Result Comment: Ashley mated GFR was calculated using the 2020 CKD-EPI creatinine equation. Performed By: #### 4 6124 #### LAB [address] [address] Jack Mendoza M.D. [id number] Glucose [Mass/Vol] 117 mg/dL High 65-99 [facility] Comment on above: Order Comment: [facility] has implemented the eGFR calculation approach that does not have a coefficient for race that conforms to the NKF-ASN Task Force Recommendations. Performed By: #### 4 6124 #### LAB [address] [address] Jack Mendoza M.D. [id number] HCO3 (Bld) [Moles/Vol] 28 mmol/L Normal 21-32 [facility] Comment on above: Order Comment: [facility] has implemented the eGFR calculation approach that does not have a coefficient for race that conforms to the NKF-ASN Task Force Recommendations. Performed By: #### 4 6124 #### LAB [address] [address] Jack Mendoza M.D. [id number] Potassium [Moles/Vol] 4.4 mmol/L Normal 3.5-5.1 [facility] Comment on above: Order Comment: [facility] has implemented the eGFR calculation approach that does not have a coefficient for race that conforms to the NKF-ASN Task Force Recommendations. Performed By: #### 4 6124 #### LAB [address] [address] Jack Mendoza M.D. [id number] Sodium [Moles/Vol] 149 mmol/L High 135-145 [facility] Comment on above: Order Comment: [facility] has implemented the eGFR calculation approach that does not have a coefficient for race that conforms to the NKF-ASN Task Force Recommendations. Performed By: #### 4 6124 #### LAB [address] [address] Jack Mendoza M.D. [id number] Urea nitrogen [Mass/Vol] 20 mg/dL Normal 8-25 [facility] Comment on above: Order Comment: [facility] has implemented the eGFR calculation approach that does not have a coefficient for race that conforms to the NKF-ASN Task Force Recommendations. Performed By: #### 4 6124 #### LAB [address] [address] Jack Mendoza M.D. [id number] Urea nitrogen/Creatinine [Mass ratio] 18.5 mg/mg Normal 10.0-20.0 [facility] Comment on above: Order Comment: [facility] has implemented the eGFR calculation approach that does not have a coefficient for race that conforms to the NKF-ASN Task Force Recommendations. Performed By: #### 4 6124 #### LAB [address] [address] Jack Mendoza M.D. [id number] CBC WITH AUTO DIFFERENTIALon 02-15-2025 AUTO NRBC 0.0 % [facility] Comment on above: Performed By: #### L [id number] ####[facility] LAB [address] [address] Jack Mendoza M.D. [id number] AUTO NRBC ABS COUNT 0.00 K/mcL Normal 0.00-0.00 [facility] Comment on above: Performed By: #### L [id number] ####[facility] LAB [address] [address] Jack Mendoza M.D. [id number] BASOPHILS ABSOLUTE COUNT 0.01 K/mcL Normal 0.00-0.30 [facility] Comment on above: Performed By: #### L [id number] ####[facility] LAB [address] [address] Jack Mendoza M.D. [id number] Basophils/100 WBC (Bld) 0.5 % [facility] Comment on above: Performed By: #### L [id number] #### LAB [address] [address] Jack Mendoza M.D. [id number] Eosinophils (Bld) [#/Vol] 0.08 10*3/uL Normal 0.00-0.50 [facility] Comment on above: Performed By: #### L [id number] #### LAB [address] [address] Jack Mendoza M.D. [id number] Eosinophils/100 WBC (Bld) 3.6 % Normal [facility] Comment on above: Performed By: #### L [id number] #### LAB [address] [address] Jack Mendoza M.D. [id number] Erythrocyte distribution width (RBC) [Ratio] 19.6 % High 11.6-14.8 [facility] Comment on above: Performed By: #### L [id number] #### LAB [address] [address] Jack Mendoza M.D. [id number] Hematocrit (Bld) [Volume fraction] 31.8 % Low 41.0-53.0 [facility] Comment on above: Performed By: #### L [id number] #### LAB [address] [address] Jack Mendoza M.D. [id number] Hemoglobin (Bld) [Mass/Vol] 9.5 g/dL Low 13.5-17.5 [facility] Comment on above: Performed By: #### L [id number] #### LAB [address] [place] [address] Jack Mendoza M.D. [id number] IG ABSOLUTE 0.02 K/mcL Normal 0.00-0.30 [facility] Comment on above: Performed By: #### L [id number] #### LAB [address] [place] [address] Jack Mendoza M.D. [id number] IG PERCENT 0.90 % Normal [facility] Comment on above: Result Comment: The IG parameter is the percentage of metamyelocytes, myelocytes and promyelocytes. An immature granulocyte count (IG) of 1% or more suggests the possibility of infection, an IG count of 3% is very likely related to an infection. Performed By: #### L [id number] #### LAB [address] [address] Jack Mendoza M.D. [id number] Lymphocytes (Bld) [#/Vol] 0.72 10*3/uL Low 0.90-4.00 [facility] Comment on above: Performed By: #### L [id number] #### LAB [address] [address] Jack Mendoza M.D. [id number] Lymphocytes/100 WBC (Bld) 32.6 % Normal [facility] Comment on above: Performed By: #### L [id number] #### LAB [address] [address] Jack Mendoza M.D. [id number] MCH (RBC) [Entitic mass] 20.2 pg Low 26.0-34.0 [facility] Comment on above: Performed By: #### L [id number] #### LAB [address] [place] [address] Jack Mendoza M.D. [id number] MCV (RBC) [Entitic vol] 67.5 fL Low 80.0-100.0 [facility] Comment on above: Performed By: #### L [id number] #### LAB [address] [place] [address] Jack Mendoza M.D. [id number] MEAN CORPUSCULAR HEMOGLOBIN CONC 29.9 g/dL Low 31.0-37.0 [facility] Comment on above: Performed By: #### L [id number] #### LAB [address] [place] [address] Jack Mendoza M.D. [id number] Monocytes (Bld) [#/Vol] 0.20 10*3/uL Low 0.30-0.90 [facility] Comment on above: Performed By: #### L [id number] #### LAB [address] [address] Jack Mendoza M.D. [id number] Monocytes/100 WBC (Bld) 9.0 % Normal [facility] Comment on above: Performed By: #### L [id number] #### LAB [address] [address] Jack Mendoza M.D. [id number] NEUTROPHILS ABSOLUTE COUNT 1.18 K/mcL Low 1.70-7.00 [facility] Comment on above: Performed By: #### L [id number] #### LAB [address] [address] Jack Mendoza M.D. [id number] Neutrophils/100 WBC (Bld) 53.4 % Normal [facility] Comment on above: Performed By: #### L [id number] #### LAB [address] [address] Jack Mendoza M.D. [id number] Platelet mean volume (Bld) [Entitic vol] 9.8 fL Normal 9.4-12.4 [facility] Comment on above: Performed By: #### L [id number] #### LAB [address] [address] Jack Mendoza M.D. [id number] Platelets (Bld) [#/Vol] 88 10*3/uL Low 150-400 [facility] Comment on above: Performed By: #### L [id number] ####[facility] LAB [address] [address] Jack Mendoza M.D. [id number] RBC (Bld) [#/Vol] 4.71 10*6/uL Normal 4.50-5.90 [facility] Comment on above: Performed By: #### L [id number] #### LAB [address] [address] Jack Mendoza M.D. [id number] WBC (Bld) [#/Vol] 2.21 10*3/uL Low 4.50-11.00 [facility] Comment on above: Performed By: #### L [id number] #### LAB [address] [address] Jack Mendoza M.D. [id number] CT KNEE RIGHT WITHOUT CONTRA STon 02-15-2025 CT KNEE RIGHT WITHOUT CONTRAST Normal [facility] Comment on above: Order Comment: Injur y/Trauma or Illness?:Illness/OtherHow long have you had these symptoms (acute/chronic)?:AcuteReason for exam?:R knee swellingType of Exam?:InitialAdditional signs and symptoms?:Per RN, pt was seen by doctor and told to come to ED for knee issues. Knee replacement done in 2019 MAGNESIUM LEVELon 02-15-2025 Magnesium [Mass/Vol] 1.8 mg/dL Normal 1.6-2.4 [facility] Comment on above: Performed By: #### 4 6109 #### LAB [address] [address] Jack Mendoza M.D. [id number] XR MODIFIED BARIUM SWALLOWon 02-15-2025 XR MODIFIED BARIUM SWALLOW Normal [facility] Comment on above: Order Comment: Injur y/Trauma or Illness?:Illness/OtherHow long have you had these symptoms (acute/chronic)?:AcuteReason for exam?:dysphagiaType of Exam?:InitialAdditional signs and symptoms?:nFluoro time in minutes:1.18Fluoro dose in mGy?:56.5 B12/FOLATEon 02-14-2025 Cobalamin (Vitamin B12) [Mass/Vol] 1010 pg/mL Normal 232-1245 [facility] Comment on above: Performed By: #### 4 6967 ####[facility] LAB [address] [address] Jack Mendoza M.D. [id number] FOLATE 13.7 ng/mL Normal 3.1-17.5 [facility] Comment on above: Result Comment: Defi cient <2.2Borderline 2.2 - 3.0Excessive >17.5 Performed By: #### 4 6904 #### LAB [address] [address] Jack Mendoza M.D. [id number] BASIC METABOLIC PANELon 06-2 Anion gap [Moles/Vol] 13 mmol/L Normal 10-20 [facility] Comment on above: Order Comment: [facility] has implemented the eGFR calculation approach that does not have a coefficient for race that conforms to the NKF-ASN Task Force Recommendations. Performed By: #### 4 6124 #### LAB [address] [id number] Jack Mendoza M.D. [id number] Calcium [Mass/Vol] 8.8 mg/dL Normal 8.4-10.2 [facility] Comment on above: Order Comment: [facility] has implemented the eGFR calculation approach that does not have a coefficient for race that conforms to the NKF-ASN Task Force Recommendations. Performed By: #### 4 6124 #### LAB [address] [place], [place] [address] Jack Mendoza M.D. [id number] Chloride [Moles/Vol] 111 mmol/L High 98-108 [facility] Comment on above: Order Comment: [facility] has implemented the eGFR calculation approach that does not have a coefficient for race that conforms to the NKF-ASN Task Force Recommendations. Performed By: #### 4 6124 #### LAB [address] [place], [place] [address] Jack Mendoza M.D. [id number] Creatinine [Mass/Vol] 1.16 mg/dL Normal 0.50-1.30 [facility] Comment on above: Order Comment: [facility] has implemented the eGFR calculation approach that does not have a coefficient for race that conforms to the NKF-ASN Task Force Recommendations. Performed By: #### 4 6124 #### LAB [address] [address] Jack Mendoza M.D. [id number] EGFR 73 mL/min/1.73 m2 Normal >=60 [facility] Comment on above: Order Comment: [facility] has implemented the eGFR calculation approach that does not have a coefficient for race that conforms to the NKF-ASN Task Force Recommendations. Result Comment: Ashley mated GFR was calculated using the 2020 CKD-EPI creatinine equation. Performed By: #### 4 6124 #### LAB [address] [address] Jack Mendoza M.D. [id number] Glucose [Mass/Vol] 125 mg/dL High 65-99 [facility] Comment on above: Order Comment: [facility] has implemented the eGFR calculation approach that does not have a coefficient for race that conforms to the NKF-ASN Task Force Recommendations. Performed By: #### 4 6124 #### LAB [address] [address] Jack Mendoza M.D. [id number] HCO3 (Bld) [Moles/Vol] 25 mmol/L Normal 21-32 [facility] Comment on above: Order Comment: [facility] has implemented the eGFR calculation approach that does not have a coefficient for race that conforms to the NKF-ASN Task Force Recommendations. Performed By: #### 4 6124 #### LAB [address] [address] Jack Mendoza M.D. [id number] Potassium [Moles/Vol] 4.6 mmol/L Normal 3.5-5.1 [facility] Comment on above: Order Comment: [facility] has implemented the eGFR calculation approach that does not have a coefficient for race that conforms to the NKF-ASN Task Force Recommendations. Performed By: #### 4 6124 #### LAB [address] [address] Jack Mendoza M.D. [id number] Sodium [Moles/Vol] 144 mmol/L Normal 135-145 [facility] Comment on above: Order Comment: [facility] has implemented the eGFR calculation approach that does not have a coefficient for race that conforms to the NKF-ASN Task Force Recommendations. Performed By: #### 4 6124 #### LAB [address] [address] Jack Mendoza M.D. [id number] Urea nitrogen [Mass/Vol] 23 mg/dL Normal 8-25 [facility] Comment on above: Order Comment: [facility] has implemented the eGFR calculation approach that does not have a coefficient for race that conforms to the NKF-ASN Task Force Recommendations. Performed By: #### 4 6124 #### LAB [address] [address] Jack Mendoza M.D. [id number] Urea nitrogen/Creatinine [Mass ratio] 19.8 mg/mg Normal 10.0-20.0 [facility] Comment on above: Order Comment: [facility] has implemented the eGFR calculation approach that does not have a coefficient for race that conforms to the NKF-ASN Task Force Recommendations. Performed By: #### 4 6124 #### LAB [address] [address] Jack Mendoza M.D. [id number] CBC WITH AUTO DIFFERENTIALon 02-14-2025 AUTO NRBC 0.0 % Normal [facility] Comment on above: Performed By: #### L [id number] ####[facility] [address] [address] Jack Mendoza M.D. [id number] AUTO NRBC ABS COUNT 0.00 K/mcL Normal 0.00-0.00 [facility] Comment on above: Performed By: #### L [id number] ####[facility] [address] [address] Jack Mendoza M.D. [id number] Erythrocyte distribution width (RBC) [Ratio] 19.9 % High 11.6-14.8 [facility] Comment on above: Performed By: #### L [id number] ####[facility] [address] [id number] Jack Mendoza M.D. [id number] Hematocrit (Bld) [Volume fraction] 35.2 % Low 41.0-53.0 [facility] Comment on above: Performed By: #### L [id number] #### LAB [address] [address] Jack Mendoza M.D. [id number] Hemoglobin (Bld) [Mass/Vol] 10.9 g/dL Low 13.5-17.5 [facility] Comment on above: Performed By: #### L [id number] #### LAB [address] [address] Jack Mendoza M.D. [id number] MCH (RBC) [Entitic mass] 20.6 pg Low 26.0-34.0 [facility] Comment on above: Performed By: #### L [id number] ####[facility] [address] [address] Jack Mendoza M.D. [id number] MCV (RBC) [Entitic vol] 66.4 fL Low 80.0-100.0 [facility] Comment on above: Performed By: #### L [id number] #### LAB [address] [address] Jack Mendoza M.D. [id number] MEAN CORPUSCULAR HEMOGLOBIN CONC 31.0 g/dL Normal 31.0-37.0 [facility] Comment on above: Performed By: #### L [id number] #### LAB [address] [address] Jack Mendoza M.D. [id number] Platelet mean volume (Bld) [Entitic vol] 9.8 fL Normal 9.4-12.4 [facility] Comment on above: Performed By: #### L [id number] #### LAB [address] [address] Jack Mendoza M.D. [id number] Platelets (Bld) [#/Vol] 95 10*3/uL Low 150-400 [facility] Comment on above: Performed By: #### L [id number] ####[facility] [address] [address] Jack Mendoza M.D. [id number] RBC (Bld) [#/Vol] 5.30 10*6/uL Normal 4.50-5.90 [facility] Comment on above: Performed By: #### L [id number] #### LAB [address] [address] Jack Mendoza M.D. [id number] WBC (Bld) [#/Vol] 2.72 10*3/uL Low 4.50-11.00 [facility] Comment on above: Performed By: #### L [id number] #### LAB [address] [address] Jack Mendoza M.D. [id number] CONSULTon 02-14-2025 CONSULT Normal [facility] FIBRINOGENon 02-14-2025 FIBRINOGEN LEVEL 488 mg/dL High 224-483 [facility] Comment on above: Performed By: #### 4 5616 #### LAB [address] [address] Jack Mendoza M.D. [id number] MAGNESIUM LEVELon 02-14-2025 Magnesium [Mass/Vol] 2.0 mg/dL Normal 1.6-2.4 [facility] Comment on above: Performed By: #### 4 6109 #### LAB [address] [address] Jack Mendoza M.D. [id number] MANUAL DIFFERENTIALon 2024 BASOPHILS - ABS (DIFF) 0.00 K/mcL Normal 0.00-0.30 [facility] Comment on above: Performed By: #### 4 5456 #### LAB [address] [address] Jack Mendoza M.D. [id number] BASOPHILS - REL (DIFF) 0.0 % Normal [facility] Comment on above: Performed By: #### 4 5456 #### LAB [address] [address] Jack Mendoza M.D. [id number] EOSINOPHILS - ABS (DIFF) 0.05 K/mcL Normal 0.00-0.50 [facility] Comment on above: Performed By: #### 4 5456 #### LAB [address] [address] Jack Mendoza M.D. [id number] EOSINOPHILS - REL (DIFF) 2.0 % [facility] Comment on above: Performed By: #### 4 5456 #### LAB [address] [address] Jack Mendoza M.D. [id number] LYMPHOCYTES - ABS (DIFF) 0.76 K/mcL Low 0.90-4.00 [facility] Comment on above: Performed By: #### 4 5456 #### LAB [address] [address] Jack Mendoza M.D. [id number] LYMPHOCYTES - REL (DIFF) 28.0 % [facility] Comment on above: Performed By: #### 4 5456 #### LAB [address] [address] Jack Mendoza M.D. [id number] MONOCYTES - ABS (DIFF) 0.14 K/mcL Low 0.30-0.90 [facility] Comment on above: Performed By: #### 4 5456 #### LAB [address] [address] Jack Mendoza M.D. [id number] MONOCYTES - REL (DIFF) 5.0 % [facility] Comment on above: Performed By: #### 4 5456 #### LAB [address] [address] Jack Mendoza M.D. [id number] NEUTROPHILS - ABS (DIFF) 1.77 K/mcL Normal 1.70-7.00 [facility] Comment on above: Performed By: #### 4 5456 #### LAB [address] [address] Jack Mendoza M.D. [id number] NEUTROPHILS - REL (DIFF) 65.0 % [facility] Comment on above: Performed By: #### 4 5456 #### LAB [address] [address] Jack Mendoza M.D. [id number] MORPHOLOGYon 02-14-2025 OVAL SCAN Moderate [facility] Comment on above: Performed By: #### L [id number] #### LAB [address] [address] Jack Mendoza M.D. [id number] PLATELET ESTIMATE Decreased Abnormal Normal [facility] Comment on above: Performed By: #### L AB295 ####[facility] [address] [address] Jack Mendoza M.D. [id number] POLY SCAN Moderate [facility] Comment on above: Performed By: #### L [id number] ####[facility] [address] [address] Jack Mendoza M.D. [id number] RBC MORPH SCAN See Comment Normal [facility] Comment on above: Result Comment: RBC Indices confirmed with manual peripheral smear review. Performed By: #### L AB295 ####[facility] [address] [address] Jack Mendoza M.D. [id number] TARGET CELL SCAN Moderate Normal [facility] Comment on above: Performed By: #### L AB295 ####[facility] [address] [address] Jack Mendoza M.D. [id number] MR BRAIN WITHOUT CONTRASTon 02-14-2025 MR BRAIN WITHOUT CONTRAST [facility] Comment on above: Order Comment: Injur y/Trauma or Illness?:Illness/OtherHow long have you had these symptoms (acute/chronic)?:AcuteReason for exam?:ams, encephalopathy and agitationType of Exam?:InitialAdditional signs and symptoms?:. [facility] Glucose [Mass/Vol] 111 mg/dL [address] Comment on above: Performed By: #### 4 6932 ####[facility] [address] [address] Jack Mendoza M.D. [id number] Glucose [Mass/Vol] 126 mg/dL [address] Comment on above: Performed By: #### 4 6932 ####[facility] [address] [address] Jack Mendoza M.D. [id number] Glucose [Mass/Vol] 118 mg/dL High 65-99 [facility] Comment on above: Performed By: #### 4 6932 #### LAB [address] [place], [place] [address] Jack Mendoza M.D. [id number] Glucose [Mass/Vol] 122 mg/dL High 65-99 [facility] Comment on above: Performed By: #### 4 6932 #### LAB [address] [address] Jack Mendoza M.D. [id number] PT/INRon 02-14-2025 INR Coag (PPP) [Relative time] 1.2 {INR} High 0.8-1.1 [facility] Comment on above: Order Comment: Markin g the induction phase of oral anticoagulation, the INR may not reflect the anticoagulation status of the patient. Therapeutic ranges for INR's are:Most clinical situations: INR 2.0-3.0Mechanical Prosthetic Valve: INR 2.5-3.5Critical: INR >5.0 Performed By: #### 4 6391 #### LAB [address] [place], [place] [address] Jack Mendoza M.D. [id number] PT Coag (PPP) [Time] 15.1 s High 11.8-14.3 [facility] Comment on above: Order Comment: Durin g the induction phase of oral anticoagulation, the INR may not reflect the anticoagulation status of the patient. Therapeutic ranges for INR's are:Most clinical situations: INR 2.0-3.0Mechanical Prosthetic Valve: INR 2.5-3.5Critical: INR >5.0 Performed By: #### 4 6391 #### LAB [address] [place], [place] [address] Jack Mendoza M.D. [id number] BASIC METABOLIC PANELon 01-21 Anion gap [Moles/Vol] 13 mmol/L Normal 10-20 [facility] Comment on above: Order Comment: [facility] has implemented the eGFR calculation approach that does not have a coefficient for race that conforms to the NKF-ASN Task Force Recommendations. Performed By: #### 4 6124 #### LAB [address] [id number] Jack Mendoza M.D. [id number] Calcium [Mass/Vol] 8.7 mg/dL Normal 8.4-10.2 [facility] Comment on above: Order Comment: [facility] has implemented the eGFR calculation approach that does not have a coefficient for race that conforms to the NKF-ASN Task Force Recommendations. Performed By: #### 4 6124 #### LAB [address] [address] Jack Mendoza M.D. [id number] Chloride [Moles/Vol] 110 mmol/L High 98-108 [facility] Comment on above: Order Comment: [facility] has implemented the eGFR calculation approach that does not have a coefficient for race that conforms to the NKF-ASN Task Force Recommendations. Performed By: #### 4 6124 #### LAB [address] [address] Jack Mendoza M.D. [id number] Creatinine [Mass/Vol] 1.41 mg/dL High 0.50-1.30 [facility] Comment on above: Order Comment: [facility] has implemented the eGFR calculation approach that does not have a coefficient for race that conforms to the NKF-ASN Task Force Recommendations. Performed By: #### 4 6124 #### LAB [address] [address] Jack Mendoza M.D. [id number] EGFR 58 mL/min/1.73 m2 Low >=60 [facility] Comment on above: Order Comment: [facility] has implemented the eGFR calculation approach that does not have a coefficient for race that conforms to the NKF-ASN Task Force Recommendations. Result Comment: Ashley mated GFR was calculated using the 2020 CKD-EPI creatinine equation. Performed By: #### 4 6124 #### LAB [address] [address] Jack Mendoza M.D. [id number] Glucose [Mass/Vol] 132 mg/dL High 65-99 [facility] Comment on above: Order Comment: [facility] has implemented the eGFR calculation approach that does not have a coefficient for race that conforms to the NKF-ASN Task Force Recommendations. Performed By: #### 4 6124 #### LAB [address] [address] Jack Mendoza M.D. [id number] HCO3 (Bld) [Moles/Vol] 25 mmol/L Normal 21-32 [facility] Comment on above: Order Comment: [facility] has implemented the eGFR calculation approach that does not have a coefficient for race that conforms to the NKF-ASN Task Force Recommendations. Performed By: #### 4 6124 #### LAB [address] [address] Jack Mendoza M.D. [id number] Potassium [Moles/Vol] 4.7 mmol/L Normal 3.5-5.1 [facility] Comment on above: Order Comment: [facility] has implemented the eGFR calculation approach that does not have a coefficient for race that conforms to the NKF-ASN Task Force Recommendations. Performed By: #### 4 6124 #### LAB [address] [address] Jack Mendoza M.D. [id number] Sodium [Moles/Vol] 143 mmol/L Normal 135-145 [facility] Comment on above: Order Comment: [facility] has implemented the eGFR calculation approach that does not have a coefficient for race that conforms to the NKF-ASN Task Force Recommendations. Performed By: #### 4 6124 ####[facility] [address] [address] Jack Mendoza M.D. [id number] Urea nitrogen [Mass/Vol] 36 mg/dL High 8-25 [facility] Comment on above: Order Comment: [facility] has implemented the eGFR calculation approach that does not have a coefficient for race that conforms to the NKF-ASN Task Force Recommendations. Performed By: #### 4 6124 ####[facility] [address] [address] Jack Mendoza M.D. [id number] Urea nitrogen/Creatinine [Mass ratio] 25.5 mg/mg High 10.0-20.0 [facility] Comment on above: Order Comment: [facility] has implemented the eGFR calculation approach that does not have a coefficient for race that conforms to the NKF-ASN Task Force Recommendations. Performed By: #### 4 6124 #### LAB [address] [address] Jack Mendoza M.D. [id number] BLOOD CULTURE AEROBIC/ANAERO BICon 02-13-2025 BLOOD CULTURE AEROBIC/ANAEROBIC BLOOD CULTURE No Growth after 5 days [facility] Comment on above: Performed By: #### 4 4014 #### LAB [address] [address] Jack Mendoza M.D. [id number] BLOOD CULTURE AEROBIC/ANAEROBIC BLOOD CULTURE No Growth after 5 days [facility] Comment on above: Performed By: #### 4 4014 ####[facility] [address] [address] Jack Mendoza M.D. [id number] CBC WITH AUTO DIFFERENTIALon 02-13-2025 AUTO NRBC 0.0 % [facility] Comment on above: Performed By: #### L [id number] ####[facility] [address] [address] Jack Mendoza M.D. [id number] AUTO NRBC ABS COUNT 0.00 K/mcL Normal 0.00-0.00 [facility] Comment on above: Performed By: #### L [id number] ####[facility] [address] [address] Jack Mendoza M.D. [id number] BASOPHILS ABSOLUTE COUNT 0.02 K/mcL Normal 0.00-0.30 [facility] Comment on above: Performed By: #### L [id number] #### LAB [address] [address] Jack Mendoza M.D. [id number] Basophils/100 WBC (Bld) 0.5 % Normal [facility] Comment on above: Performed By: #### L [id number] #### LAB [address] [address] Jack Mendoza M.D. [id number] Eosinophils (Bld) [#/Vol] 0.12 10*3/uL Normal 0.00-0.50 [facility] Comment on above: Performed By: #### L [id number] #### LAB [address] [address] Jack Mendoza M.D. [id number] Eosinophils/100 WBC (Bld) 2.9 % Normal [facility] Comment on above: Performed By: #### L [id number] #### LAB [address] [address] Jack Mendoza M.D. [id number] Erythrocyte distribution width (RBC) [Ratio] 20.3 % High 11.6-14.8 [facility] Comment on above: Performed By: #### L [id number] #### LAB [address] [address] Jack Mendoza M.D. [id number] Hematocrit (Bld) [Volume fraction] 38.0 % Low 41.0-53.0 [facility] Comment on above: Performed By: #### L [id number] #### LAB [address] [place] [address] Jack Mendoza M.D. [id number] Hemoglobin (Bld) [Mass/Vol] 11.6 g/dL Low 13.5-17.5 [facility] Comment on above: Performed By: #### L [id number] #### LAB [address] [address] Jack Mendoza M.D. [id number] IG ABSOLUTE 0.01 K/mcL Normal 0.00-0.30 [facility] Comment on above: Performed By: #### L [id number] #### LAB [address] [place] [address] Jack Mendoza M.D. [id number] IG PERCENT 0.20 % Normal [facility] Comment on above: Result Comment: The IG parameter is the percentage of metamyelocytes, myelocytes and promyelocytes. An immature granulocyte count (IG) of 1% or more suggests the possibility of infection, an IG count of 3% is very likely related to an infection. Performed By: #### L [id number] #### LAB [address] [place] [address] Jack Mendoza M.D. [id number] Lymphocytes (Bld) [#/Vol] 1.05 10*3/uL Normal 0.90-4.00 [facility] Comment on above: Performed By: #### L [id number] #### LAB [address] [address] Jack Mendoza M.D. [id number] Lymphocytes/100 WBC (Bld) 25.6 % Normal [facility] Comment on above: Performed By: #### L [id number] #### LAB [address] [place] [address] Jack Mendoza M.D. [id number] MCH (RBC) [Entitic mass] 20.4 pg Low 26.0-34.0 [facility] Comment on above: Performed By: #### L [id number] #### LAB [address] [address] Jack Mendoza M.D. [id number] MCV (RBC) [Entitic vol] 66.7 fL Low 80.0-100.0 [facility] Comment on above: Performed By: #### L [id number] #### LAB [address] [place] [address] Jack Mendoza M.D. [id number] MEAN CORPUSCULAR HEMOGLOBIN CONC 30.5 g/dL Low 31.0-37.0 [facility] Comment on above: Performed By: #### L [id number] #### LAB [address] [place] [address] Jack Mendoza M.D. [id number] Monocytes (Bld) [#/Vol] 0.55 10*3/uL Normal 0.30-0.90 [facility] Comment on above: Performed By: #### L [id number] #### LAB [address] [address] Jack Mendoaz M.D. [id number] Monocytes/100 WBC (Bld) 13.4 % Normal [facility] Comment on above: Performed By: #### L [id number] #### LAB [address] [address] Jack Mendoza M.D. [id number] NEUTROPHILS ABSOLUTE COUNT 2.35 K/mcL Normal 1.70-7.00 [facility] Comment on above: Performed By: #### L [id number] #### LAB [address] [address] Jack Mendoza M.D. [id number] Neutrophils/100 WBC (Bld) 57.4 % Normal [facility] Comment on above: Result Comment: Tiffany pheral smear reviewed manually Performed By: #### L [id number] #### LAB [address] [address] Jack Mendoza M.D. [id number] Platelets (Bld) [#/Vol] 123 10*3/uL Low 150-400 [facility] Comment on above: Performed By: #### L [id number] #### LAB [address] [place] [address] Jack Mendoza M.D. [id number] RBC (Bld) [#/Vol] 5.70 10*6/uL Normal 4.50-5.90 [facility] Comment on above: Performed By: #### L [id number] #### LAB [address] [place] [address] Jack Mendoza M.D. [id number] WBC (Bld) [#/Vol] 4.10 10*3/uL Low 4.50-11.00 [facility] Comment on above: Performed By: #### L [id number] #### LAB [address] [place] [address] Jack Mendoza M.D. [id number] MAGNESIUM LEVELon 02-13-2025 Magnesium [Mass/Vol] 1.9 mg/dL Normal 1.6-2.4 [facility] Comment on above: Performed By: #### 4 6109 ####[facility] [address] [address] Jack Mendoza M.D. [id number] MORPHOLOGYon 02-13-2025 OVAL SCAN Moderate Normal [facility] Comment on above: Performed By: #### L AB295 ####[facility] [address] [id number] Jack Mendoza M.D. [id number] PLATELET ESTIMATE Decreased Abnormal Normal [facility] Comment on above: Performed By: #### L AB295 ####[facility] [address] [address] Jack Mendoza M.D. [id number] POLY SCAN Few Normal [facility] Comment on above: Performed By: #### L AB295 ####[facility] [address] [address] Jack Mendoza M.D. [id number] RBC MORPH SCAN See Comment Normal [facility] Comment on above: Result Comment: RBC Indices confirmed with manual peripheral smear review. Performed By: #### L AB295 ####[facility] [address] [id number] Jack Mendoza M.D. [id number] TARGET CELL SCAN Moderate Normal [facility] Comment on above: Performed By: #### L AB295 ####[facility] [address] [id number] Jack Mendoza M.D. [id number] POC GLUCOSE - [facility] 025 Glucose [Mass/Vol] 137 mg/dL High [address] [place] [address] Comment on above: Performed By: #### 4 6932 ####[facility] [address] [id number] Jack Mendoza M.D. [id number] Glucose [Mass/Vol] 160 mg/dL High [address] [place] [address] Comment on above: Performed By: #### 4 6932 #### LAB [address] [address] Jack Mendoza M.D. [id number] Glucose [Mass/Vol] 129 mg/dL High [address] [place] [address] Comment on above: Performed By: #### 4 6932 ####[facility] [address] [address] Jack Mendoza M.D. [id number] Glucose [Mass/Vol] 111 mg/dL High [address] [place] [address] Comment on above: Performed By: #### 4 6932 ####[facility] [address] [address] Jack Mendoza M.D. [id number] Glucose [Mass/Vol] 132 mg/dL High [address] [place] [address] Comment on above: Performed By: #### 4 6932 #### LAB [address] [address] Jack Mendoza M.D. [id number] SPUTUM AEROBIC CULTUREon SPUTUM AEROBIC CULTURE RESPIRATORY CULTURE Normal Sobeida after 48 hrs GRAM STAIN RESULT Many WBC Few Epithelial Cells Moderate Mixed Sobeida Normal [facility] Comment on above: Performed By: #### 4 4046 ####[facility] [address] [address] Venancio Richardson M.D. [id number] XR CHEST PA/APon 02-13-2025 XR CHEST PA/AP [facility] Comment on above: Order Comment: Injur y/Trauma or Illness?:Illness/OtherHow long have you had these symptoms (acute/chronic)?:AcuteReason for exam?:respritoty failureHistory of cancer?:uSurgeries, chemotherapy, or radiation?:uType of Exam?:Subsequent/Follow-upAdditional signs and symptoms?:u AMMONIAon 02-12-2025 AMMONIA 32 micromol/L Normal 12-47 [facility] Comment on above: Performed By: #### 4 5060 #### LAB [address] [address] Jack Mendoza M.D. [id number] BASIC METABOLIC PANELon 06-2 Anion gap [Moles/Vol] 13 mmol/L Normal 10-20 [facility] Comment on above: Order Comment: [facility] has implemented the eGFR calculation approach that does not have a coefficient for race that conforms to the NKF-ASN Task Force Recommendations. Performed By: #### 4 6124 #### LAB [address] [address] Jack Mendoza M.D. [id number] Calcium [Mass/Vol] 8.3 mg/dL Low 8.4-10.2 [facility] Comment on above: Order Comment: [facility] has implemented the eGFR calculation approach that does not have a coefficient for race that conforms to the NKF-ASN Task Force Recommendations. Performed By: #### 4 6124 #### LAB [address] [id number] Jack Mendoza M.D. [id number] Chloride [Moles/Vol] 108 mmol/L Normal 98-108 [facility] Comment on above: Order Comment: [facility] has implemented the eGFR calculation approach that does not have a coefficient for race that conforms to the NKF-ASN Task Force Recommendations. Performed By: #### 4 6124 #### LAB [address] [place], [place] [address] Jack Mendoza M.D. [id number] Creatinine [Mass/Vol] 2.43 mg/dL High 0.50-1.30 [facility] Comment on above: Order Comment: [facility] has implemented the eGFR calculation approach that does not have a coefficient for race that conforms to the NKF-ASN Task Force Recommendations. Performed By: #### 4 6124 #### LAB [address] [id number] Jack Mendoza M.D. [id number] EGFR 30 mL/min/1.73 m2 Low >=60 [facility] Comment on above: Order Comment: [facility] has implemented the eGFR calculation approach that does not have a coefficient for race that conforms to the NKF-ASN Task Force Recommendations. Result Comment: Ashley mated GFR was calculated using the 2020 CKD-EPI creatinine equation. Performed By: #### 4 6106 #### LAB [address] [address] Jack Mendoza M.D. [id number] Glucose [Mass/Vol] 129 mg/dL High 65-99 [facility] Comment on above: Order Comment: [facility] has implemented the eGFR calculation approach that does not have a coefficient for race that conforms to the NKF-ASN Task Force Recommendations. Performed By: #### 4 6124 #### LAB [address] [address] Jack Mendoza M.D. [id number] HCO3 (Bld) [Moles/Vol] 23 mmol/L Normal 21-32 [facility] Comment on above: Order Comment: [facility] has implemented the eGFR calculation approach that does not have a coefficient for race that conforms to the NKF-ASN Task Force Recommendations. Performed By: #### 4 6124 #### LAB [address] [address] Jack Mendoza M.D. [id number] Potassium [Moles/Vol] 5.2 mmol/L High 3.5-5.1 [facility] Comment on above: Order Comment: [facility] has implemented the eGFR calculation approach that does not have a coefficient for race that conforms to the NKF-ASN Task Force Recommendations. Performed By: #### 4 6124 #### LAB [address] [address] Jack Mendoza M.D. [id number] Sodium [Moles/Vol] 139 mmol/L Normal 135-145 [facility] Comment on above: Order Comment: [facility] has implemented the eGFR calculation approach that does not have a coefficient for race that conforms to the NKF-ASN Task Force Recommendations. Performed By: #### 4 6124 #### LAB [address] [address] Jack Mendoza M.D. [id number] Urea nitrogen [Mass/Vol] 62 mg/dL High 8-25 [facility] Comment on above: Order Comment: [facility] has implemented the eGFR calculation approach that does not have a coefficient for race that conforms to the NKF-ASN Task Force Recommendations. Performed By: #### 4 6124 #### LAB [address] [place], [place] [address] Jack Mendoza M.D. [id number] Urea nitrogen/Creatinine [Mass ratio] 25.5 mg/mg High 10.0-20.0 [facility] Comment on above: Order Comment: [facility] has implemented the eGFR calculation approach that does not have a coefficient for race that conforms to the NKF-ASN Task Force Recommendations. Performed By: #### 4 6124 #### LAB [address] [id number] Jack Mendoza M.D. [id number] Anion gap [Moles/Vol] 18 mmol/L Normal 10-20 [facility] Comment on above: Order Comment: [facility] has implemented the eGFR calculation approach that does not have a coefficient for race that conforms to the NKF-ASN Task Force Recommendations. Performed By: #### 4 6124 #### LAB [address] [address] Jack Mendoza M.D. [id number] Calcium [Mass/Vol] 8.4 mg/dL Normal 8.4-10.2 [facility] Comment on above: Order Comment: [facility] has implemented the eGFR calculation approach that does not have a coefficient for race that conforms to the NKF-ASN Task Force Recommendations. Performed By: #### 4 6124 #### LAB [address] [id number] Jack Mendoza M.D. [id number] Chloride [Moles/Vol] 102 mmol/L Normal 98-108 [facility] Comment on above: Order Comment: [facility] has implemented the eGFR calculation approach that does not have a coefficient for race that conforms to the NKF-ASN Task Force Recommendations. Performed By: #### 4 6124 #### LAB [address] [address] Jack Mendoza M.D. [id number] Creatinine [Mass/Vol] 3.72 mg/dL High 0.50-1.30 [facility] Comment on above: Order Comment: [facility] has implemented the eGFR calculation approach that does not have a coefficient for race that conforms to the NKF-ASN Task Force Recommendations. Performed By: #### 4 6124 #### LAB [address] [address] Jack Mendoza M.D. [id number] EGFR 18 mL/min/1.73 m2 Low >=60 [facility] Comment on above: Order Comment: [facility] has implemented the eGFR calculation approach that does not have a coefficient for race that conforms to the NKF-ASN Task Force Recommendations. Result Comment: Ashley mated GFR was calculated using the 2020 CKD-EPI creatinine equation. Performed By: #### 4 6124 #### LAB [address] [address] Jack Mendoza M.D. [id number] Glucose [Mass/Vol] 126 mg/dL High 65-99 [facility] Comment on above: Order Comment: [facility] has implemented the eGFR calculation approach that does not have a coefficient for race that conforms to the NKF-ASN Task Force Recommendations. Performed By: #### 4 6124 #### LAB [address] [address] Jack Mendoza M.D. [id number] HCO3 (Bld) [Moles/Vol] 22 mmol/L Normal 21-32 [facility] Comment on above: Order Comment: [facility] has implemented the eGFR calculation approach that does not have a coefficient for race that conforms to the NKF-ASN Task Force Recommendations. Performed By: #### 4 6124 #### LAB [address] [address] Jack Mendoza M.D. [id number] Potassium [Moles/Vol] 5.6 mmol/L High 3.5-5.1 [facility] Comment on above: Order Comment: [facility] has implemented the eGFR calculation approach that does not have a coefficient for race that conforms to the NKF-ASN Task Force Recommendations. Performed By: #### 4 6124 #### LAB [address] [place], [place] [address] Jack Mendoza M.D. [id number] Sodium [Moles/Vol] 136 mmol/L Normal 135-145 [facility] Comment on above: Order Comment: [facility] has implemented the eGFR calculation approach that does not have a coefficient for race that conforms to the NKF-ASN Task Force Recommendations. Performed By: #### 4 6124 #### LAB [address] [address] Jack Mendoza M.D. [id number] Urea nitrogen [Mass/Vol] 81 mg/dL High 8-25 [facility] Comment on above: Order Comment: [facility] has implemented the eGFR calculation approach that does not have a coefficient for race that conforms to the NKF-ASN Task Force Recommendations. Performed By: #### 4 6124 #### LAB [address] [address] Jack Mendoza M.D. [id number] Urea nitrogen/Creatinine [Mass ratio] 21.8 mg/mg High 10.0-20.0 [facility] Comment on above: Order Comment: [facility] has implemented the eGFR calculation approach that does not have a coefficient for race that conforms to the NKF-ASN Task Force Recommendations. Performed By: #### 4 6124 #### LAB [address] [address] Jack Mendoza M.D. [id number] CBC WITH AUTO DIFFERENTIALon 02-12-2025 AUTO NRBC 0.0 % Normal [facility] Comment on above: Performed By: #### L [id number] #### LAB [address] [address] Jack Mendoza M.D. [id number] AUTO NRBC ABS COUNT 0.00 K/mcL Normal 0.00-0.00 [facility] Comment on above: Performed By: #### L [id number] #### LAB [address] [address] Jack Mendoza M.D. [id number] BASOPHILS ABSOLUTE COUNT 0.04 K/mcL Normal 0.00-0.30 [facility] Comment on above: Performed By: #### L [id number] #### LAB [address] [address] Jack Mendoza M.D. [id number] Basophils/100 WBC (Bld) 0.5 % Normal [facility] Comment on above: Performed By: #### L [id number] #### LAB [address] [address] Jack Mendoza M.D. [id number] Eosinophils (Bld) [#/Vol] 0.19 10*3/uL Normal 0.00-0.50 [facility] Comment on above: Performed By: #### L [id number] #### LAB [address] [address] Jack Mendoza M.D. [id number] Eosinophils/100 WBC (Bld) 2.3 % Normal [facility] Comment on above: Performed By: #### L [id number] #### LAB [address] [place] [address] Jack Mendoza M.D. [id number] Erythrocyte distribution width (RBC) [Ratio] 20.3 % High 11.6-14.8 [facility] Comment on above: Performed By: #### L [id number] #### LAB [address] [address] Jack Mendoza M.D. [id number] Hematocrit (Bld) [Volume fraction] 36.7 % Low 41.0-53.0 [facility] Comment on above: Performed By: #### L [id number] #### LAB [address] [place] [address] Jack Mendoza M.D. [id number] Hemoglobin (Bld) [Mass/Vol] 11.2 g/dL Low 13.5-17.5 [facility] Comment on above: Performed By: #### L [id number] #### LAB [address] [address] Jack Mendoza M.D. [id number] IG ABSOLUTE 0.04 K/mcL Normal 0.00-0.30 [facility] Comment on above: Performed By: #### L [id number] #### LAB [address] [address] Jack Mendoza M.D. [id number] IG PERCENT 0.50 % Normal [facility] Comment on above: Result Comment: The IG parameter is the percentage of metamyelocytes, myelocytes and promyelocytes. An immature granulocyte count (IG) of 1% or more suggests the possibility of infection, an IG count of 3% is very likely related to an infection. Performed By: #### L [id number] #### LAB [address] [address] Jack Mendoza M.D. [id number] Lymphocytes (Bld) [#/Vol] 1.84 10*3/uL Normal 0.90-4.00 [facility] Comment on above: Performed By: #### L [id number] #### LAB [address] [address] Jack Mendoza M.D. [id number] Lymphocytes/100 WBC (Bld) 22.7 % Normal [facility] Comment on above: Performed By: #### L [id number] #### LAB [address] [address] Jack Mendoza M.D. [id number] MCH (RBC) [Entitic mass] 20.3 pg Low 26.0-34.0 [facility] Comment on above: Performed By: #### L [id number] #### LAB [address] [address] Jack Mendoza M.D. [id number] MCV (RBC) [Entitic vol] 66.6 fL Low 80.0-100.0 [facility] Comment on above: Performed By: #### L [id number] ####[facility] LAB [address] [address] Jack Mendoza M.D. [id number] MEAN CORPUSCULAR HEMOGLOBIN CONC 30.5 g/dL Low 31.0-37.0 [facility] Comment on above: Performed By: #### L [id number] #### LAB [address] [address] Jack Mendoza M.D. [id number] Monocytes (Bld) [#/Vol] 0.84 10*3/uL Normal 0.30-0.90 [facility] Comment on above: Performed By: #### L [id number] #### LAB [address] [address] Jack Mendoza M.D. [id number] Monocytes/100 WBC (Bld) 10.3 % Normal [facility] Comment on above: Performed By: #### L [id number] #### LAB [address] [address] Jack Mendoza M.D. [id number] NEUTROPHILS ABSOLUTE COUNT 5.17 K/mcL Normal 1.70-7.00 [facility] Comment on above: Performed By: #### L [id number] #### LAB [address] [address] Jack Mendoza M.D. [id number] Neutrophils/100 WBC (Bld) 63.7 % Normal [facility] Comment on above: Performed By: #### L [id number] #### LAB [address] [address] Jack Mendoza M.D. [id number] Platelet mean volume (Bld) [Entitic vol] 9.7 fL Normal 9.4-12.4 [facility] Comment on above: Performed By: #### L [id number] #### LAB [address] [address] Jack Mendoza M.D. [id number] Platelets (Bld) [#/Vol] 205 10*3/uL Normal 150-400 [facility] Comment on above: Performed By: #### L [id number] ####[facility] LAB [address] [address] Jack Mendoza M.D. [id number] RBC (Bld) [#/Vol] 5.51 10*6/uL Normal 4.50-5.90 [facility] Comment on above: Performed By: #### L [id number] ####[facility] LAB [address] [address] Jack Mendoza M.D. [id number] WBC (Bld) [#/Vol] 8.12 10*3/uL Normal 4.50-11.00 [facility] Comment on above: Performed By: #### L [id number] ####[facility] LAB [address] [address] Jack Mendoza M.D. [id number] CONSULTon 02-12-2025 CONSULT Normal [facility] CPKon 02-12-2025 CPK 74 U/L Normal [address] [place] [address] Comment on above: Performed By: #### 4 8261 ####[facility] LAB [address] [address] Jack Mendoza M.D. [id number] CPK 43 U/L Low 60-[address] [place] [address] Comment on above: Performed By: #### 4 8261 ####[facility] LAB [address] [address] Jack Mendoza M.D. [id number] CRP, INFLAMMATIONon 02-13-20 25 CRP [Mass/Vol] 33.9 mg/L High 0.0-10.0 [facility] Comment on above: Performed By: #### 4 5334 ####[facility] LAB [address] [address] Jack Mendoza M.D. [id number] CT CHEST ABDOMEN PELVIS WITH OUT CONTRASTon 02-12-2025 CT CHEST ABDOMEN PELVIS WITHOUT CONTRAST Normal [facility] Comment on above: Order Comment: Injur y/Trauma or Illness?:Illness/OtherHow long have you had these symptoms (acute/chronic)?:AcuteReason for exam?:marlene, sepsisType of Exam?:InitialAdditional signs and symptoms?:. ECHOCARDIOGRAM COMPLETEon ECHOCARDIOGRAM COMPLETE Normal [facility] ED Prov Noteon 02-12-2025 ED Prov Note Normal [facility] ETHYLENE GLYCOLon 02-12-2025 ETHYLENE GLYCOL Not detected Normal None Detected [facility] Comment on above: Order Comment: Test performed by:[facility] Reference [id number] [place] [id number] Result Comment: This Gas Chromatography test was developed and its performance characteristics determined by T[facility] at [facility]. It has not been cleared or approved by the FDA. The laboratory is regulated under CLIA as qualified to perform high-complexity testing. This test is used for clinical purposes. It should not be regarded as investigational or for research. Performed By: #### 4 5562 #### LAB [address] [address] Jack Mendoza M.D. [id number] HEPATIC FUNCTION PANELon Albumin [Mass/Vol] 3.1 g/dL Low 3.2-5.2 [facility] Comment on above: Performed By: #### 4 5866 ####[facility] LAB [address] [address] Jack Mendoza M.D. [id number] ALP [Catalytic activity/Vol] 60 U/L Normal 40-150 [facility] Comment on above: Performed By: #### 4 5866 #### LAB [address] [address] Jack Mendoza M.D. [id number] ALT [Catalytic activity/Vol] 10 U/L Normal 0-50 U/L [facility] Comment on above: Performed By: #### 4 5866 ####[facility] LAB [address] [address] Jack Mendoza M.D. [id number] AST [Catalytic activity/Vol] 22 U/L Normal 0-50 U/L [facility] Comment on above: Performed By: #### 4 5866 #### LAB [address] [address] Jack Mendoza M.D. [id number] Bilirubin [Mass/Vol] 0.5 mg/dL Normal 0.0-1.3 [facility] Comment on above: Performed By: #### 4 5866 #### LAB [address] [address] Jack Mendoza M.D. [id number] Bilirubin.indirect [Mass/Vol] 0.3 mg/dL Normal 0.0-0.4 [facility] Comment on above: Performed By: #### 4 5866 #### LAB [address] [address] Jack Mendoza M.D. [id number] Protein [Mass/Vol] 7.4 g/dL Normal 6.0-8.0 [facility] Comment on above: Performed By: #### 4 5866 #### LAB [address] [address] Jack Mendoza M.D. [id number] MAGNESIUM LEVELon 02-12-2025 Magnesium [Mass/Vol] 2.3 mg/dL Normal 1.6-2.4 [facility] Comment on above: Performed By: #### 4 6109 #### LAB [address] [address] Jack Mendoza M.D. [id number] MRSA DNA AMPLIFIED PROBEon 0 02-12-2025 MRSA DNA AMPLIFIED PROBE Negative Normal Not Detected, MRSA NEGATIVE [facility] Comment on above: Performed By: #### 4 8061 #### LAB [address] [address] Jack Mendoza M.D. [id number] NT PRO BNPon 02-12-2025 Natriuretic peptide B (Bld) [Mass/Vol] 157 pg/mL Normal 0-300 [facility] Comment on above: Order Comment: Pride Study Cut-offsRule In:< /= 50 Years >450 pg/mL51 Years - 75 Years >900 pg/mL76 Years - 99 Years >1800 pg/mLRule Out:All patients <300 pg/mL Performed By: #### 4 7395 #### LAB [address] [place], [place] [address] Jack Mendoza M.D. [id number] POC ARTERIAL BLOOD GAS PANEL -ERIKA Shannon 02-12-2025 [id number] 131.4 mm Hg Normal [facility] Comment on above: Performed By: #### 4 8716 #### LAB [address] [address] Jack Mendoza M.D. [id number] BASE EXCESS, ARTERIAL -0.7 Normal -2.0-2.0 [facility] Comment on above: Performed By: #### 4 8716 ####[facility] LAB [address] [address] Jack Mendoza M.D. [id number] CALCIUM IONIZED 4.7 mg/dL Normal 4.5-5.3 [facility] Comment on above: Performed By: #### 4 8716 #### LAB [address] [address] Jack Mendoza M.D. [id number] CARBOXYHEMOGLOBIN 1.1 % of total Hb Normal <=1.5 [facility] Comment on above: Result Comment: Refe rence Ranges:Suburban Non-smokers: <1.5%Smokers: 1.5-5.0%Heavy Smokers: 5.0-9.0% Performed By: #### 4 8716 #### LAB [address] [address] Jack Mendoza M.D. [id number] Chloride [Moles/Vol] 106 mmol/L Normal 98-108 [facility] Comment on above: Performed By: #### 4 8716 ####[facility] LAB [address] [id number] Jack Mendoza M.D. [id number] FIO2 40 Normal [facility] Comment on above: Performed By: #### 4 8716 ####[facility] LAB [address] [address] Jack Mendoza M.D. [id number] Glucose [Mass/Vol] 133 mg/dL High 65-99 [facility] Comment on above: Performed By: #### 4 8716 #### LAB [address] [address] Jack Mendoza M.D. [id number] HCO3 (Bld) [Moles/Vol] 24.2 mmol/L Normal 22.0-26.0 [facility] Comment on above: Performed By: #### 4 8716 #### LAB [address] [address] Jack Mendoza M.D. [id number] Hematocrit (Bld) [Volume fraction] 36.6 % Low 41.0-53.0 [facility] Comment on above: Performed By: #### 4 8716 #### LAB [address] [address] Jack Mendoza M.D. [id number] Hemoglobin (Bld) [Mass/Vol] 11.9 g/dL Low 13.5-17.5 [facility] Comment on above: Performed By: #### 4 8716 #### LAB [address] [address] Jack Mendoza M.D. [id number] LACTIC ACID, WHOLE BLOOD 1.1 mmol/L Normal 0.6-2.0 [facility] Comment on above: Performed By: #### 4 8716 #### LAB [address] [address] Jack Mendoza M.D. [id number] METHEMOGLOBIN < Normal 0.0-2.0 [facility] Comment on above: Performed By: #### 4 8716 #### LAB [address] [address] Jack Mendoza M.D. [id number] O2HB 96.0 % Normal 94.0-98.0 [facility] Comment on above: Performed By: #### 4 8716 #### LAB [address] [address] Jack Mendoza M.D. [id number] Oxygen saturation in Blood 97.8 % Normal 92.0-99.0 [facility] Comment on above: Performed By: #### 4 8716 ####[facility] LAB [address] [address] Jack Mendoza M.D. [id number] PCO2 ARTERIAL 40.2 mm Hg Normal 35.0-45.0 [facility] Comment on above: Performed By: #### 4 8716 ####[facility] LAB [address] [address] Jack Mendoza M.D. [id number] PEEP RAD 5 Normal [facility] Comment on above: Performed By: #### 4 8716 ####[facility] LAB [address] [address] Jack Mendoza M.D. [id number] PH ARTERIAL 7.39 Normal 7.35-7.45 [facility] Comment on above: Performed By: #### 4 8716 #### LAB [address] [address] Jack Mendoza M.D. [id number] PO2 ARTERIAL 97 mm Hg Normal 80-100 [facility] Comment on above: Performed By: #### 4 8716 #### LAB [address] [address] Jack Mendoza M.D. [id number] Potassium [Moles/Vol] 4.9 mmol/L Normal 3.5-5.1 [facility] Comment on above: Performed By: #### 4 8716 #### LAB [address] [address] Jack Mendoza M.D. [id number] RESP RATE RAD 24 Normal [facility] Comment on above: Performed By: #### 4 8716 #### LAB [address] [address] Jack Mendoza M.D. [id number] Sodium [Moles/Vol] 138 mmol/L Normal 135-145 [facility] Comment on above: Performed By: #### 4 8716 ####[facility] LAB [address] [address] Jack Mendoza M.D. [id number] SPECIMEN SOURCE RADIANCE Radial, left Normal [facility] Comment on above: Performed By: #### 4 8716 ####[facility] LAB [address] [address] Jack Mendoza M.D. [id number] TIDAL VOLUME RAD 460 Normal [facility] Comment on above: Performed By: #### 4 8716 ####[facility] LAB [address] [address] Jack Mendoza M.D. [id number] POC GLUCOSE [facility] 025 Glucose [Mass/Vol] 136 mg/dL [address] Comment on above: Performed By: #### 4 6932 ####[facility] LAB [address] [address] Jack Mendoza M.D. [id number] Glucose [Mass/Vol] 138 mg/dL [address] Comment on above: Performed By: #### 4 6932 ####[facility] LAB [address] [address] Jack Mendoza M.D. [id number] Glucose [Mass/Vol] 123 mg/dL [address] Comment on above: Performed By: #### 4 6932 ####[facility] LAB [address] [address] Jack Mendoza M.D. [id number] Glucose [Mass/Vol] 130 mg/dL [address] Comment on above: Performed By: #### 4 6932 #### LAB [address] [address] Jack Mendoza M.D. [id number] Glucose [Mass/Vol] 121 mg/dL [address] Comment on above: Performed By: #### 4 6917 ####[facility] LAB [address] [address] Jack Mendoza M.D. [id number] Glucose [Mass/Vol] 130 mg/dL [address] Comment on above: Performed By: #### 4 1215 ####[facility] LAB [address] [address] Jack Mendoza M.D. [id number] Glucose [Mass/Vol] 139 mg/dL High [address] [place] [address] Comment on above: Performed By: #### 4 6932 #### LAB [address] [address] Jack Mendoza M.D. [id number] Glucose [Mass/Vol] 113 mg/dL [address] Comment on above: Performed By: #### 4 6932 #### LAB [address] [address] Jack Mendoza M.D. [id number] Glucose [Mass/Vol] 112 mg/dL [address] Comment on above: Performed By: #### 4 6932 #### LAB [address] [address] Jack Mendoza M.D. [id number] Glucose [Mass/Vol] 106 mg/dL [address] Comment on above: Performed By: #### 4 6932 #### LAB [address] [address] Jack Mendoza M.D. [id number] PROCALCITONINon 02-12-2025 PROCALCITONIN 0.20 ng/ml Normal <0.50 [facility] Comment on above: Order Comment: Resul ts <0.50 ng/ml represent a low risk of severe sepsis and/or septic shock. Performed By: #### 4 7652 #### LAB [address] [address] Jack Mendoza M.D. [id number] PT/INRon 02-12-2025 INR Coag (PPP) [Relative time] 1.2 {INR} High 0.8-1.1 [facility] Comment on above: Order Comment: Markin g the induction phase of oral anticoagulation, the INR may not reflect the anticoagulation status of the patient. Therapeutic ranges for INR's are:Most clinical situations: INR 2.0-3.0Mechanical Prosthetic Valve: INR 2.5-3.5Critical: INR >5.0 Performed By: #### 4 6391 #### LAB [address] [address] Jack Mendoza M.D. [id number] PT Coag (PPP) [Time] 15.0 s High 11.8-14.3 [facility] Comment on above: Order Comment: Paxton g the induction phase of oral anticoagulation, the INR may not reflect the anticoagulation status of the patient. Therapeutic ranges for INR's are:Most clinical situations: INR 2.0-3.0Mechanical Prosthetic Valve: INR 2.5-3.5Critical: INR >5.0 Performed By: #### 4 6391 #### LAB [address] [address] Jack Mendoza M.D. [id number] RESPIRATORY PCR PANELon 01-21 RESPIRATORY PCR PANEL Normal Not Detected [facility] Comment on above: Performed By: #### L [id number] ####[facility] [address] [place] [address] Venancio Richardson M.D. [id number] SEDIMENTATION RATEon 025 SEDIMENTATION RATE, ERYTHROCYTE 102 mm/hr High 0-20 [facility] Comment on above: Performed By: #### 4 6477 #### LAB [address] [address] Jack Mendoza M.D. [id number] URINE AEROBIC CULTUREon 01-21 URINE AEROBIC CULTURE URINE CULTURE No Growth (<1,000 CFU/mL) Normal [facility] Comment on above: Performed By: #### 4 4053 ####[facility] [address] [place] [address] Venancio Richardson M.D. [id number] US DUPLEX VENOUS LEGS BILATE RALon 02-12-2025 US DUPLEX VENOUS LEGS BILATERAL Normal [facility] ALCOHOL, MEDICALon ALCOHOL MEDICAL < Normal <10.0 [facility] Comment on above: Result Comment: Alco hol cutoff: <10.00 mg/dL = None Detected Performed By: #### 4 5033 #### LAB [address] [address] Jack Mendoza M.D. [id number] AMMONIAon 02-11-2025 AMMONIA 39 micromol/L Normal [facility] Comment on above: Performed By: #### 4 5060 #### LAB [address] [address] Jack Mendoza M.D. [id number] BLOOD CULTURE AEROBIC/ANAERO BICon 02-11-2025 BLOOD CULTURE AEROBIC/ANAEROBIC BLOOD CULTURE No Growth after 5 days Normal [facility] Comment on above: Performed By: #### 4 4014 #### LAB [address] [address] Jack Mendoza M.D. [id number] BLOOD CULTURE AEROBIC/ANAEROBIC BLOOD CULTURE STAPHYLOCOCCUS HAEMOLYTICUS Staphylococcus haemolyticus Sets Positive [1] of [2] GRAM STAIN RESULT BC Gram Positive Cocci in clusters Abnormal [facility] Comment on above: Performed By: #### 4 4014 #### LAB [address] [address] Jack Mendoza M.D. [id number] [facility] [address] [place] [address] Venancio Richardson M.D. [id number] BLOOD CULTURE ID PCRon 02-11 BLOOD CULTURE ID PCR Abnormal Not Detected [facility] Comment on above: Performed By: #### L [id number] #### LAB [address] [address] Jack Mendoza M.D. [id number] CBC WITH AUTO DIFFERENTIALon 02-11-2025 AUTO NRBC 0.0 % Normal [facility] Comment on above: Order Comment: Micro cytic, hypochromic anemia with erythrocytosis. The finding is commonly caused by thalassemia or other hemoglobinopathy with or without associated iron deficiency. Less commonly, it can be due to secondary erythrocytosis due to a chronic disease or a bone marrow disorder such as primary erythrocytosis (polycythemia vera). Performed By: #### L [id number] #### LAB [address] [address] Jack Mendoza M.D. [id number] AUTO NRBC ABS COUNT 0.00 K/mcL Normal 0.00-0.00 [facility] Comment on above: Order Comment: Micro cytic, hypochromic anemia with erythrocytosis. The finding is commonly caused by thalassemia or other hemoglobinopathy with or without associated iron deficiency. Less commonly, it can be due to secondary erythrocytosis due to a chronic disease or a bone marrow disorder such as primary erythrocytosis (polycythemia vera). Performed By: #### L [id number] ####[facility] [address] [address] Jack Mendoza M.D. [id number] BASOPHILS ABSOLUTE COUNT 0.03 K/mcL Normal 0.00-0.30 [facility] Comment on above: Order Comment: Micro cytic, hypochromic anemia with erythrocytosis. The finding is commonly caused by thalassemia or other hemoglobinopathy with or without associated iron deficiency. Less commonly, it can be due to secondary erythrocytosis due to a chronic disease or a bone marrow disorder such as primary erythrocytosis (polycythemia vera). Performed By: #### L [id number] ####[facility] [address] [address] Jack Mendoza M.D. [id number] Basophils/100 WBC (Bld) 0.4 % Normal [facility] Comment on above: Order Comment: Micro cytic, hypochromic anemia with erythrocytosis. The finding is commonly caused by thalassemia or other hemoglobinopathy with or without associated iron deficiency. Less commonly, it can be due to secondary erythrocytosis due to a chronic disease or a bone marrow disorder such as primary erythrocytosis (polycythemia vera). Performed By: #### L [id number] ####[facility] [address] [address] Jack Mendoza M.D. [id number] Eosinophils (Bld) [#/Vol] 0.08 10*3/uL Normal 0.00-0.50 [facility] Comment on above: Order Comment: Micro cytic, hypochromic anemia with erythrocytosis. The finding is commonly caused by thalassemia or other hemoglobinopathy with or without associated iron deficiency. Less commonly, it can be due to secondary erythrocytosis due to a chronic disease or a bone marrow disorder such as primary erythrocytosis (polycythemia vera). Performed By: #### L [id number] ####[facility] [address] [address] Jack Mendoza M.D. [id number] Eosinophils/100 WBC (Bld) 1.1 % Normal [facility] Comment on above: Order Comment: Micro cytic, hypochromic anemia with erythrocytosis. The finding is commonly caused by thalassemia or other hemoglobinopathy with or without associated iron deficiency. Less commonly, it can be due to secondary erythrocytosis due to a chronic disease or a bone marrow disorder such as primary erythrocytosis (polycythemia vera). Performed By: #### L [id number] ####[facility] [address] [address] Jack Mendoza M.D. [id number] Erythrocyte distribution width (RBC) [Ratio] 20.6 % High 11.6-14.8 [facility] Comment on above: Order Comment: Micro cytic, hypochromic anemia with erythrocytosis. The finding is commonly caused by thalassemia or other hemoglobinopathy with or without associated iron deficiency. Less commonly, it can be due to secondary erythrocytosis due to a chronic disease or a bone marrow disorder such as primary erythrocytosis (polycythemia vera). Performed By: #### L [id number] ####[facility] [address] [address] Jack Mendoza M.D. [id number] Hematocrit (Bld) [Volume fraction] 40.4 % Low 41.0-53.0 [facility] Comment on above: Order Comment: Micro cytic, hypochromic anemia with erythrocytosis. The finding is commonly caused by thalassemia or other hemoglobinopathy with or without associated iron deficiency. Less commonly, it can be due to secondary erythrocytosis due to a chronic disease or a bone marrow disorder such as primary erythrocytosis (polycythemia vera). Performed By: #### L [id number] ####[facility] [address] [address] Jack Mendoza M.D. [id number] Hemoglobin (Bld) [Mass/Vol] 12.2 g/dL Low 13.5-17.5 [facility] Comment on above: Order Comment: Micro cytic, hypochromic anemia with erythrocytosis. The finding is commonly caused by thalassemia or other hemoglobinopathy with or without associated iron deficiency. Less commonly, it can be due to secondary erythrocytosis due to a chronic disease or a bone marrow disorder such as primary erythrocytosis (polycythemia vera). Performed By: #### L [id number] ####[facility] [address] [address] Jack Mendoza M.D. [id number] IG ABSOLUTE 0.03 K/mcL Normal 0.00-0.30 [facility] Comment on above: Order Comment: Micro cytic, hypochromic anemia with erythrocytosis. The finding is commonly caused by thalassemia or other hemoglobinopathy with or without associated iron deficiency. Less commonly, it can be due to secondary erythrocytosis due to a chronic disease or a bone marrow disorder such as primary erythrocytosis (polycythemia vera). Performed By: #### L [id number] ####[facility] [address] [address] Jack Mendoza M.D. [id number] IG PERCENT 0.40 % Normal [facility] Comment on above: Order Comment: Micro [...] to an infection. Performed By: #### L [id number] ####[facility] [address] [address] Jack Mendoza M.D. [id number] Lymphocytes (Bld) [#/Vol] 1.28 10*3/uL Normal 0.90-4.00 [facility] Comment on above: Order Comment: Micro cytic, hypochromic anemia with erythrocytosis. The finding is commonly caused by thalassemia or other hemoglobinopathy with or without associated iron deficiency. Less commonly, it can be due to secondary erythrocytosis due to a chronic disease or a bone marrow disorder such as primary erythrocytosis (polycythemia vera). Performed By: #### L [id number] ####[facility] [address] [address] Jack Mendoza M.D. [id number] Lymphocytes/100 WBC (Bld) 17.8 % Normal [facility] Comment on above: Order Comment: Micro cytic, hypochromic anemia with erythrocytosis. The finding is commonly caused by thalassemia or other hemoglobinopathy with or without associated iron deficiency. Less commonly, it can be due to secondary erythrocytosis due to a chronic disease or a bone marrow disorder such as primary erythrocytosis (polycythemia vera). Performed By: #### L [id number] ####[facility] [address] [address] Jack Mendoza M.D. [id number] MCH (RBC) [Entitic mass] 20.3 pg Low 26.0-34.0 [facility] Comment on above: Order Comment: Micro cytic, hypochromic anemia with erythrocytosis. The finding is commonly caused by thalassemia or other hemoglobinopathy with or without associated iron deficiency. Less commonly, it can be due to secondary erythrocytosis due to a chronic disease or a bone marrow disorder such as primary erythrocytosis (polycythemia vera). Performed By: #### L [id number] ####[facility] [address] [address] Jack Mendoza M.D. [id number] MCV (RBC) [Entitic vol] 67.3 fL Low 80.0-100.0 [facility] Comment on above: Order Comment: Micro cytic, hypochromic anemia with erythrocytosis. The finding is commonly caused by thalassemia or other hemoglobinopathy with or without associated iron deficiency. Less commonly, it can be due to secondary erythrocytosis due to a chronic disease or a bone marrow disorder such as primary erythrocytosis (polycythemia vera). Performed By: #### L [id number] ####[facility] [address] [address] Jack Mendoza M.D. [id number] MEAN CORPUSCULAR HEMOGLOBIN CONC 30.2 g/dL Low 31.0-37.0 [facility] Comment on above: Order Comment: Micro cytic, hypochromic anemia with erythrocytosis. The finding is commonly caused by thalassemia or other hemoglobinopathy with or without associated iron deficiency. Less commonly, it can be due to secondary erythrocytosis due to a chronic disease or a bone marrow disorder such as primary erythrocytosis (polycythemia vera). Performed By: #### L [id number] ####[facility] [address] [address] Jack Mendoza M.D. [id number] Monocytes (Bld) [#/Vol] 0.65 10*3/uL Normal 0.30-0.90 [facility] Comment on above: Order Comment: Micro cytic, hypochromic anemia with erythrocytosis. The finding is commonly caused by thalassemia or other hemoglobinopathy with or without associated iron deficiency. Less commonly, it can be due to secondary erythrocytosis due to a chronic disease or a bone marrow disorder such as primary erythrocytosis (polycythemia vera). Performed By: #### L [id number] ####[facility] [address] [address] Jack Mendoza M.D. [id number] Monocytes/100 WBC (Bld) 9.0 % Normal [facility] Comment on above: Order Comment: Micro cytic, hypochromic anemia with erythrocytosis. The finding is commonly caused by thalassemia or other hemoglobinopathy with or without associated iron deficiency. Less commonly, it can be due to secondary erythrocytosis due to a chronic disease or a bone marrow disorder such as primary erythrocytosis (polycythemia vera). Performed By: #### L [id number] ####[facility] [address] [address] Jack Mendoza M.D. [id number] NEUTROPHILS ABSOLUTE COUNT 5.13 K/mcL Normal 1.70-7.00 [facility] Comment on above: Order Comment: Micro cytic, hypochromic anemia with erythrocytosis. The finding is commonly caused by thalassemia or other hemoglobinopathy with or without associated iron deficiency. Less commonly, it can be due to secondary erythrocytosis due to a chronic disease or a bone marrow disorder such as primary erythrocytosis (polycythemia vera). Performed By: #### L [id number] ####[facility] [address] [address] Jack Mendoza M.D. [id number] Neutrophils/100 WBC (Bld) 71.3 % Normal [facility] Comment on above: Order Comment: Micro [...] smear reviewed manually Performed By: #### L [id number] ####[facility] [address] [address] Jack Mendoza M.D. [id number] Platelet mean volume (Bld) [Entitic vol] 9.1 fL Low 9.4-12.4 [facility] Comment on above: Order Comment: Micro cytic, hypochromic anemia with erythrocytosis. The finding is commonly caused by thalassemia or other hemoglobinopathy with or without associated iron deficiency. Less commonly, it can be due to secondary erythrocytosis due to a chronic disease or a bone marrow disorder such as primary erythrocytosis (polycythemia vera). Performed By: #### L [id number] ####[facility] [address] [address] Jack Mendoza M.D. [id number] Platelets (Bld) [#/Vol] 171 10*3/uL Normal 150-400 [facility] Comment on above: Order Comment: Micro cytic, hypochromic anemia with erythrocytosis. The finding is commonly caused by thalassemia or other hemoglobinopathy with or without associated iron deficiency. Less commonly, it can be due to secondary erythrocytosis due to a chronic disease or a bone marrow disorder such as primary erythrocytosis (polycythemia vera). Performed By: #### L [id number] ####[facility] [address] [place], [place] [address] Jack Mendoza M.D. [id number] RBC (Bld) [#/Vol] 6.00 10*6/uL High 4.50-5.90 [facility] Comment on above: Order Comment: Micro cytic, hypochromic anemia with erythrocytosis. The finding is commonly caused by thalassemia or other hemoglobinopathy with or without associated iron deficiency. Less commonly, it can be due to secondary erythrocytosis due to a chronic disease or a bone marrow disorder such as primary erythrocytosis (polycythemia vera). Performed By: #### L [id number] ####[facility] [address] [place], [place] [address] Jack Mendoza M.D. [id number] WBC (Bld) [#/Vol] 7.20 10*3/uL Normal 4.50-11.00 [facility] Comment on above: Order Comment: Micro cytic, hypochromic anemia with erythrocytosis. The finding is commonly caused by thalassemia or other hemoglobinopathy with or without associated iron deficiency. Less commonly, it can be due to secondary erythrocytosis due to a chronic disease or a bone marrow disorder such as primary erythrocytosis (polycythemia vera). Performed By: #### L [id number] ####[facility] [address] [place], [place] [address] Jack Mendoza M.D. [id number] COMPREHENSIVE METABOLIC PANE [facility] 02-11-2025 Albumin [Mass/Vol] 3.6 g/dL Normal 3.2-5.2 [facility] Comment on above: Order Comment: [facility] has implemented the eGFR calculation approach that does not have a coefficient for race that conforms to the NKF-ASN Task Force Recommendations. Performed By: #### 4 [id number] ####[facility] [address] [place], [place] [address] Jack Mendoza M.D. [id number] ALP [Catalytic activity/Vol] 77 U/L Normal 40-150 [facility] Comment on above: Order Comment: [facility] has implemented the eGFR calculation approach that does not have a coefficient for race that conforms to the NKF-ASN Task Force Recommendations. Performed By: #### 4 6126 #### LAB [address] [address] Jack Mendoza M.D. [id number] ALT [Catalytic activity/Vol] 9 U/L Normal 0-50 U/L [facility] Comment on above: Order Comment: [facility] has implemented the eGFR calculation approach that does not have a coefficient for race that conforms to the NKF-ASN Task Force Recommendations. Performed By: #### 4 6126 #### LAB [address] [address] Jack Mendoza M.D. [id number] Anion gap [Moles/Vol] 22 mmol/L High 10-20 [facility] Comment on above: Order Comment: [facility] has implemented the eGFR calculation approach that does not have a coefficient for race that conforms to the NKF-ASN Task Force Recommendations. Performed By: #### 4 6126 #### LAB [address] [address] Jack Mendoza M.D. [id number] AST [Catalytic activity/Vol] 24 U/L Normal 0-50 U/L [facility] Comment on above: Order Comment: [facility] has implemented the eGFR calculation approach that does not have a coefficient for race that conforms to the NKF-ASN Task Force Recommendations. Performed By: #### 4 6126 #### LAB [address] [address] Jack Mendoza M.D. [id number] Bilirubin [Mass/Vol] 0.4 mg/dL Normal 0.0-1.3 [facility] Comment on above: Order Comment: [facility] has implemented the eGFR calculation approach that does not have a coefficient for race that conforms to the NKF-ASN Task Force Recommendations. Performed By: #### 4 6126 #### LAB [address] [address] Jack Mendoza M.D. [id number] Calcium [Mass/Vol] 8.9 mg/dL Normal 8.4-10.2 [facility] Comment on above: Order Comment: [facility] has implemented the eGFR calculation approach that does not have a coefficient for race that conforms to the NKF-ASN Task Force Recommendations. Performed By: #### 4 6126 #### LAB [address] [address] Jack Mendoza M.D. [id number] Chloride [Moles/Vol] 100 mmol/L Normal 98-108 [facility] Comment on above: Order Comment: [facility] has implemented the eGFR calculation approach that does not have a coefficient for race that conforms to the NKF-ASN Task Force Recommendations. Performed By: #### 4 6126 #### LAB [address] [address] Jack Mendoza M.D. [id number] Creatinine [Mass/Vol] 5.66 mg/dL High 0.50-1.30 [facility] Comment on above: Order Comment: [facility] has implemented the eGFR calculation approach that does not have a coefficient for race that conforms to the NKF-ASN Task Force Recommendations. Performed By: #### 4 6126 #### LAB [address] [address] Jack Mendoza M.D. [id number] EGFR 11 mL/min/1.73 m2 Low >=60 [facility] Comment on above: Order Comment: [facility] has implemented the eGFR calculation approach that does not have a coefficient for race that conforms to the NKF-ASN Task Force Recommendations. Result Comment: Ashley mated GFR was calculated using the 2020 CKD-EPI creatinine equation. Performed By: #### 4 6126 #### LAB [address] [address] Jack Mendoza M.D. [id number] Glucose [Mass/Vol] 98 mg/dL Normal 65-99 [facility] Comment on above: Order Comment: [facility] has implemented the eGFR calculation approach that does not have a coefficient for race that conforms to the NKF-ASN Task Force Recommendations. Performed By: #### 4 6126 #### LAB [address] [id number] Jack Mendoza M.D. [id number] HCO3 (Bld) [Moles/Vol] 20 mmol/L Low 21-32 [facility] Comment on above: Order Comment: [facility] has implemented the eGFR calculation approach that does not have a coefficient for race that conforms to the NKF-ASN Task Force Recommendations. Performed By: #### 4 6126 #### LAB [address] [address] Jack Mendoza M.D. [id number] Potassium [Moles/Vol] 7.6 mmol/L Off scale high 3.5-5.1 [facility] Comment on above: Order Comment: [facility] has implemented the eGFR calculation approach that does not have a coefficient for race that conforms to the NKF-ASN Task Force Recommendations. Performed By: #### 4 6126 #### LAB [address] [address] Jack Mendoza M.D. [id number] Protein [Mass/Vol] 8.7 g/dL High 6.0-8.0 [facility] Comment on above: Order Comment: [facility] has implemented the eGFR calculation approach that does not have a coefficient for race that conforms to the NKF-ASN Task Force Recommendations. Performed By: #### 4 6126 #### LAB [address] [address] Jack Mendoza M.D. [id number] Sodium [Moles/Vol] 134 mmol/L Low 135-145 [facility] Comment on above: Order Comment: [facility] has implemented the eGFR calculation approach that does not have a coefficient for race that conforms to the NKF-ASN Task Force Recommendations. Performed By: #### 4 6126 #### LAB [address] [address] Jack Mendoza M.D. [id number] Urea nitrogen [Mass/Vol] 98 mg/dL High 8-25 [facility] Comment on above: Order Comment: [facility] has implemented the eGFR calculation approach that does not have a coefficient for race that conforms to the NKF-ASN Task Force Recommendations. Performed By: #### 4 6126 #### LAB [address] [address] Jack Mendoza M.D. [id number] Urea nitrogen/Creatinine [Mass ratio] 17.3 mg/mg Normal 10.0-20.0 [facility] Comment on above: Order Comment: [facility] has implemented the eGFR calculation approach that does not have a coefficient for race that conforms to the NKF-ASN Task Force Recommendations. Performed By: #### 4 6126 #### LAB [address] [address] Jack Mendoza M.D. [id number] CT HEAD OR BRAIN WITHOUT CON TRASTon 02-11-2025 CT HEAD OR BRAIN WITHOUT CONTRAST Normal [facility] Comment on above: Order Comment: Injur y/Trauma or Illness?:Illness/OtherHow long have you had these symptoms (acute/chronic)?:AcuteReason for exam?:AMSType of Exam?:InitialAdditional signs and symptoms?:c/o Altered mental status. Patient was found wondering around naked DRUGS OF ABUSE SCREEN, URINE on 02-11-2025 AMPHETAMINE SCREEN, URINE Not detected Normal None Detected [facility] Comment on above: Order Comment: Scree n results should be used for treatment purposes only.Specimen will be kept for 2 weeks, if the sample is adequate. Confirmation testing can be initiated by calling the lab within 2 weeks. Result Comment: Urin e Amphetamine Cutoff: < 1000 ng/mL = None Detected Performed By: #### 4 6965 #### LAB [address] [address] Jack Mendoza M.D. [id number] BARBITURATE SCREEN URINE Not detected Normal None Detected [facility] Comment on above: Order Comment: Scree n results should be used for treatment purposes only.Specimen will be kept for 2 weeks, if the sample is adequate. Confirmation testing can be initiated by calling the lab within 2 weeks. Result Comment: Urin e Barbiturates Cutoff: < 200 ng/mL = None Detected Performed By: #### 4 6965 ####[facility] [address] [address] Jack Mendoza M.D. [id number] BENZODIAZEPINE SCREEN, URINE Positive Abnormal None Detected [facility] Comment on above: Order Comment: Scree n results should be used for treatment purposes only.Specimen will be kept for 2 weeks, if the sample is adequate. Confirmation testing can be initiated by calling the lab within 2 weeks. Result Comment: Urin e Benzodiazepine Cutoff: < 200 ng/mL = None Detected Performed By: #### 4 6965 #### LAB [address] [address] Jack Mendoza M.D. [id number] BUPRENORPHINE, URINE Positive Abnormal None Detected [facility] Comment on above: Order Comment: Scree n results should be used for treatment purposes only.Specimen will be kept for 2 weeks, if the sample is adequate. Confirmation testing can be initiated by calling the lab within 2 weeks. Result Comment: Urin e Buprenorphine Cutoff: < 5 ng/mL = None Detected Performed By: #### 4 6965 ####[facility] [address] [address] Jack Mendoza M.D. [id number] CANNABINOID SCREEN URINE Not detected Normal None Detected [facility] Comment on above: Order Comment: Scree n results should be used for treatment purposes only.Specimen will be kept for 2 weeks, if the sample is adequate. Confirmation testing can be initiated by calling the lab within 2 weeks. Result Comment: Urin e Cannabinoids Cutoff: < 50 ng/mL = None Detected Performed By: #### 4 6965 ####[facility] [address] [address] Jack Mendoza M.D. [id number] COCAINE, SCREEN URINE Not detected Normal None Detected [facility] Comment on above: Order Comment: Scree n results should be used for treatment purposes only.Specimen will be kept for 2 weeks, if the sample is adequate. Confirmation testing can be initiated by calling the lab within 2 weeks. Result Comment: Urin e Cocaine Cutoff: < 300 ng/mL = None Detected Performed By: #### 4 6965 #### [facility] [address] [address] Jack Mendoza M.D. [id number] FENTANYL, URINE Not detected Normal None Detected [facility] Comment on above: Order Comment: Scree n results should be used for treatment purposes only.Specimen will be kept for 2 weeks, if the sample is adequate. Confirmation testing can be initiated by calling the lab within 2 weeks. Result Comment: Urin e Fentanyl Cutoff: < 1 ng/mL = None Detected Performed By: #### 4 6965 ####[facility] [address] [address] Jack Mendoza M.D. [id number] METHADONE SCREEN, URINE Not detected Normal None Detected [facility] Comment on above: Order Comment: Scree n results should be used for treatment purposes only.Specimen will be kept for 2 weeks, if the sample is adequate. Confirmation testing can be initiated by calling the lab within 2 weeks. Result Comment: Urin e Methadone Cutoff: < 300 ng/mL = None Detected Performed By: #### 4 6965 ####[facility] [address] [address] Jack Mendoza M.D. [id number] OPIATE SCREEN URINE Not detected Normal None Detected [facility] Comment on above: Order Comment: Scree n results should be used for treatment purposes only.Specimen will be kept for 2 weeks, if the sample is adequate. Confirmation testing can be initiated by calling the lab within 2 weeks. Result Comment: Urin e Opiates Cutoff: < 300 ng/mL = None Detected Performed By: #### 4 6965 ####[facility] [address] [address] Jack Mendoza M.D. [id number] OXYCODONE SCREEN, URINE Not detected Normal None Detected [facility] Comment on above: Order Comment: Scree n results should be used for treatment purposes only.Specimen will be kept for 2 weeks, if the sample is adequate. Confirmation testing can be initiated by calling the lab within 2 weeks. Result Comment: Urin e Oxycodone Cutoff: < 100 ng/mL = None Detected Performed By: #### 4 6965 ####[facility] [address] [address] Jack Mendoza M.D. [id number] H AND Mike 02-11-2025 H AND P Normal [facility] HEMOGLOBIN A1Con 02-11-2025 Glucose [Mass/Vol] 131 mg/dL High 74-114 [facility] Comment on above: Performed By: #### 4 8202 ####[facility] [address] [address] Jack Mendoza M.D. [id number] HbA1c (Bld) [Mass fraction] 6.2 % High 4.2-5.6 [facility] Comment on above: Performed By: #### 4 8202 ####[facility] [address] [address] Jack Mendoza M.D. [id number] LACTIC ACID, PLASMAon 2024 LACTIC ACID, PLASMA 1.1 mmol/L Normal 0.6-2.0 [facility] Comment on above: Performed By: #### 4 6053 ####[facility] [address] [address] Jack Mendoza M.D. [id number] MORPHOLOGYon 02-11-2025 OVAL SCAN Moderate Normal [facility] Comment on above: Performed By: #### L [id number] ####[facility] [address] [address] Jack Mendoza M.D. [id number] PLATELET ESTIMATE Normal Normal Normal [facility] Comment on above: Performed By: #### L AB295 ####[facility] [address] [address] Jack Mendoza M.D. [id number] POLY SCAN Few Normal [facility] Comment on above: Performed By: #### L AB295 ####[facility] [address] [address] Jack Mendoza M.D. [id number] RBC MORPH SCAN See Comment [facility] Comment on above: Result Comment: RBC Indices confirmed with manual peripheral smear review. Performed By: #### L AB295 ####[facility] [address] [address] Jack Mendoza M.D. [id number] TARGET CELL SCAN Few [facility] Comment on above: Performed By: #### L AB295 ####[facility] [address] [address] Jack Mendoza M.D. [id number] POC ARTERIAL BLOOD GAS PANEL -[facility] 02-11-2025 YLN1PSOWEDOH 43.1 mm Hg [facility] Comment on above: Performed By: #### 4 8716 ####[facility] [address] [address] Jack Mendoza M.D. [id number] BASE EXCESS, ARTERIAL -6.5 Low -2.0-2.0 [facility] Comment on above: Performed By: #### 4 8716 ####[facility] [address] [address] Jack Mendoza M.D. [id number] FIO2 32 [facility] Comment on above: Performed By: #### 4 8716 ####[facility] [address] [address] Jack Mendoza M.D. [id number] HCO3 (Bld) [Moles/Vol] 21.5 mmol/L Low 22.0-26.0 [facility] Comment on above: Performed By: #### 4 8716 ####[facility] [address] [address] Jack Mendoza M.D. [id number] Hematocrit (Bld) [Volume fraction] 37.6 % Low 41.0-53.0 [facility] Comment on above: Performed By: #### 4 8716 ####[facility] [address] [address] Jack Mendoza M.D. [id number] Hemoglobin (Bld) [Mass/Vol] 12.3 g/dL Low 13.5-17.5 [facility] Comment on above: Performed By: #### 4 8716 ####[facility] [address] [address] Jack Mendoza M.D. [id number] LITER FLOW 3 Normal [facility] Comment on above: Performed By: #### 4 8716 #### LAB [address] [address] Jack Mendoza M.D. [id number] Oxygen saturation in Blood 98.2 % Normal 92.0-99.0 [facility] Comment on above: Performed By: #### 4 8716 ####[facility] [address] [address] Jack Mendoza M.D. [id number] PCO2 ARTERIAL 52.5 mm Hg High 35.0-45.0 [facility] Comment on above: Performed By: #### 4 8716 #### LAB [address] [address] Jack Mendoza M.D. [id number] PH ARTERIAL 7.22 Low 7.35-7.45 [facility] Comment on above: Performed By: #### 4 8716 #### LAB [address] [address] Jack Mendoza M.D. [id number] PO2 ARTERIAL 116 mm Hg High 80-100 [facility] Comment on above: Performed By: #### 4 8716 #### LAB [address] [address] Jcak Mendoza M.D. [id number] SPECIMEN SOURCE RADIANCE Brachial, right Normal [facility] Comment on above: Performed By: #### 4 8716 ####[facility] [address] [address] Jack Mendoza M.D. [id number] POC GLUCOSE - [facility] 025 Glucose [Mass/Vol] 110 mg/dL [address] Comment on above: Performed By: #### 4 6932 #### LAB [address] [address] Jack Mendoza M.D. [id number] Glucose [Mass/Vol] 114 mg/dL [address] Comment on above: Performed By: #### 4 6932 #### LAB [address] [place], [place] [address] Jack Mendoza M.D. [id number] Glucose [Mass/Vol] 100 mg/dL High 65-99 [facility] Comment on above: Performed By: #### 4 6932 #### LAB [address] [id number] Jack Mendoza M.D. [id number] POTASSIUM LEVELon 02-11-2025 Potassium [Moles/Vol] 5.9 mmol/L High 3.5-5.1 [facility] Comment on above: Performed By: #### 4 6351 #### LAB [address] [address] Jack Mendoza M.D. [id number] TRIGLYCERIDESon 02-11-2025 Triglyceride [Mass/Vol] 74 mg/dL Normal 30-150 [facility] Comment on above: Result Comment: [facility] Cholesterol Education [facility] Guidelines: TriglycerideNormal: <150 mg/dLBorderline High: 150-199 mg/dLHigh: 200-499 mg/dLVery High: greater than or equal to 500 mg/dL Performed By: #### 4 6606 #### LAB [address] [address] Jack Mendoza M.D. [id number] TROPONIN X 2 (NOW AND REPEAT IN 2 HOURS)on 02-11-2025 TROPONIN T DELTA CHANGE INTERPRETATION Delta troponin requires at least 2 hours between collections. Normal [facility] Comment on above: Performed By: #### 4 6608 #### LAB [address] [address] Jack Mendoza M.D. [id number] TROPONIN T NG/L 22 ng/L Normal <=22 [facility] Comment on above: Performed By: #### 4 6608 #### LAB [address] [address] Jack Mendoza M.D. [id number] BASELINE TROPONIN T NG/L 16 ng/L Normal <=22 [facility] Comment on above: Performed By: #### 4 6608 #### LAB [address] [address] Jack Mendoza M.D. [id number] TROPONIN T INTERPRETATION Normal Normal [facility] Comment on above: Performed By: #### 4 6608 #### LAB [address] [id number] Jack Mendoza M.D. [id number] TSH WITH REFLEX FREE T4on TSH Qn 1.42 m[IU]/L Normal 0.27-4.20 [facility] Comment on above: Performed By: #### 4 6612 #### LAB [address] [address] Jack Mendoza M.D. [id number] URINALYSISon 02-11-2025 AMORPHOUS CRYSTALS Few Abnormal None Seen , Rare [facility] Comment on above: Order Comment: Micro scopic examination is performed on all urinalysis samples and only positive findings are reported. The test for blood on the chemical analytic portion of urinalysis may also be positive due to hemoglobinuria and myoglobinuria and if red blood cells are present they are quantified by microscopic examination. Performed By: #### 4 6625 #### LAB [address] [address] Jack Mendoza M.D. [id number] BACTERIA, URINE None Seen Normal None Seen [facility] Comment on above: Order Comment: Micro scopic examination is performed on all urinalysis samples and only positive findings are reported. The test for blood on the chemical analytic portion of urinalysis may also be positive due to hemoglobinuria and myoglobinuria and if red blood cells are present they are quantified by microscopic examination. Performed By: #### 4 6625 #### LAB [address] [address] Jack Mendoza M.D. [id number] BILIRUBIN, URINE Negative Normal Negative [facility] Comment on above: Order Comment: Micro scopic examination is performed on all urinalysis samples and only positive findings are reported. The test for blood on the chemical analytic portion of urinalysis may also be positive due to hemoglobinuria and myoglobinuria and if red blood cells are present they are quantified by microscopic examination. Performed By: #### 4 6625 #### LAB [address] [address] Jack Mendoza M.D. [id number] BLOOD, URINE Negative Normal Negative [facility] Comment on above: Order Comment: Micro scopic examination is performed on all urinalysis samples and only positive findings are reported. The test for blood on the chemical analytic portion of urinalysis may also be positive due to hemoglobinuria and myoglobinuria and if red blood cells are present they are quantified by microscopic examination. Performed By: #### 4 6625 #### LAB [address] [address] Jack Mendoza M.D. [id number] Clarity (U) Clear Normal Clear [facility] Comment on above: Order Comment: Micro scopic examination is performed on all urinalysis samples and only positive findings are reported. The test for blood on the chemical analytic portion of urinalysis may also be positive due to hemoglobinuria and myoglobinuria and if red blood cells are present they are quantified by microscopic examination. Performed By: #### 4 6625 #### LAB [address] [address] Jack Mendoza M.D. [id number] Color (U) Yellow Normal Colorless, Yellow [facility] Comment on above: Order Comment: Micro scopic examination is performed on all urinalysis samples and only positive findings are reported. The test for blood on the chemical analytic portion of urinalysis may also be positive due to hemoglobinuria and myoglobinuria and if red blood cells are present they are quantified by microscopic examination. Performed By: #### 4 6625 #### LAB [address] [id number] Jack Mendoza M.D. [id number] Glucose Ql (U) Negative Normal Negative [facility] Comment on above: Order Comment: Micro scopic examination is performed on all urinalysis samples and only positive findings are reported. The test for blood on the chemical analytic portion of urinalysis may also be positive due to hemoglobinuria and myoglobinuria and if red blood cells are present they are quantified by microscopic examination. Performed By: #### 4 6625 #### LAB [address] [id number] Jack Mendoza M.D. [id number] Hyaline casts LM Ql (Urine sed) 11-20 Abnormal 0-2 [facility] Comment on above: Order Comment: Micro scopic examination is performed on all urinalysis samples and only positive findings are reported. The test for blood on the chemical analytic portion of urinalysis may also be positive due to hemoglobinuria and myoglobinuria and if red blood cells are present they are quantified by microscopic examination. Performed By: #### 4 6625 #### LAB [address] [address] Jack Mendoza M.D. [id number] Ketones Ql (U) Negative Normal Negative [facility] Comment on above: Order Comment: Micro scopic examination is performed on all urinalysis samples and only positive findings are reported. The test for blood on the chemical analytic portion of urinalysis may also be positive due to hemoglobinuria and myoglobinuria and if red blood cells are present they are quantified by microscopic examination. Performed By: #### 4 6625 #### LAB [address] [address] Jack Mendoza M.D. [id number] Leukocyte esterase Test strip Ql (U) Negative Normal Negative [facility] Comment on above: Order Comment: Micro scopic examination is performed on all urinalysis samples and only positive findings are reported. The test for blood on the chemical analytic portion of urinalysis may also be positive due to hemoglobinuria and myoglobinuria and if red blood cells are present they are quantified by microscopic examination. Performed By: #### 4 6625 #### LAB [address] [address] Jack Mendoza M.D. [id number] NITRITE, URINE Negative Normal Negative [facility] Comment on above: Order Comment: Micro scopic examination is performed on all urinalysis samples and only positive findings are reported. The test for blood on the chemical analytic portion of urinalysis may also be positive due to hemoglobinuria and myoglobinuria and if red blood cells are present they are quantified by microscopic examination. Performed By: #### 4 6625 #### LAB [address] [id number] Jack Mendoza M.D. [id number] pH (U) 5.5 [pH] Normal 5.0-7.0 [facility] Comment on above: Order Comment: Micro scopic examination is performed on all urinalysis samples and only positive findings are reported. The test for blood on the chemical analytic portion of urinalysis may also be positive due to hemoglobinuria and myoglobinuria and if red blood cells are present they are quantified by microscopic examination. Performed By: #### 4 6625 ####[facility] LAB [address] [address] Jack Mendoza M.D. [id number] PROTEIN, URINE Negative Normal Negative [facility] Comment on above: Order Comment: Micro scopic examination is performed on all urinalysis samples and only positive findings are reported. The test for blood on the chemical analytic portion of urinalysis may also be positive due to hemoglobinuria and myoglobinuria and if red blood cells are present they are quantified by microscopic examination. Performed By: #### 4 6625 #### LAB [address] [address] Jack Mendoza M.D. [id number] RBC LM.HPF (Urine sed) [#/Area] 1 /[HPF] Normal 0-3 [facility] Comment on above: Order Comment: Micro scopic examination is performed on all urinalysis samples and only positive findings are reported. The test for blood on the chemical analytic portion of urinalysis may also be positive due to hemoglobinuria and myoglobinuria and if red blood cells are present they are quantified by microscopic examination. Performed By: #### 4 6625 ####[facility] LAB [address] [id number] Jack Mendoza M.D. [id number] Specific gravity (U) [Rel density] 1.014 Normal 1.005-1.025 [facility] Comment on above: Order Comment: Micro scopic examination is performed on all urinalysis samples and only positive findings are reported. The test for blood on the chemical analytic portion of urinalysis may also be positive due to hemoglobinuria and myoglobinuria and if red blood cells are present they are quantified by microscopic examination. Performed By: #### 4 6625 #### LAB [address] [id number] Jack Mendoza M.D. [id number] TRANSITIONAL EPITHELIAL < Normal 0-1 [facility] Comment on above: Order Comment: Micro scopic examination is performed on all urinalysis samples and only positive findings are reported. The test for blood on the chemical analytic portion of urinalysis may also be positive due to hemoglobinuria and myoglobinuria and if red blood cells are present they are quantified by microscopic examination. Performed By: #### 4 6625 #### LAB [address] [address] Jack Mendoza M.D. [id number] UROBILINOGEN, URINE <2.0 Normal <2.0 [facility] Comment on above: Order [...] By: #### 4 6625 #### LAB [address] [address] Jack Mendoza M.D. [id number] WBC, URINE < Normal 0-5 [facility] Comment on above: Order Comment: Micro scopic examination is performed on all urinalysis samples and only positive findings are reported. The test for blood on the chemical analytic portion of urinalysis may also be positive due to hemoglobinuria and myoglobinuria and if red blood cells are present they are quantified by microscopic examination. Performed By: #### 4 6625 #### LAB [address] [address] Jack Mendoza M.D. [id number] US RENAL AND BLADDERon 02-11 US RENAL AND BLADDER Normal [facility] Comment on above: Order Comment: Injur y/Trauma or Illness?:Illness/OtherHow long have you had these symptoms (acute/chronic)?:AcuteReason for exam?:akiHistory of cancer?:uSurgeries, chemotherapy, or radiation?:uType of Exam?:InitialAdditional signs and symptoms?:none VOLATILE PANELon 02-11-2025 ACETONE QUANT, BLOOD <10 Normal [facility] Comment on above: Order Comment: This Gas Chromatography test was developed and its performance characteristics determined by [facility]. It has not been cleared or approved by the FDA. The laboratory is regulated under CLIA as qualified to perform high-complexity testing. This test is used for clinical purposes. It should not be regarded as investigational or for research.Test performed by:[facility] Reference [address] [place] [address] Performed By: #### 4 6683 #### LAB [address] [place] [address] Jack Mendoza M.D. [id number] ACETONE, BLOOD Not detected Normal Not Detected [facility] Comment on above: Order Comment: This Gas Chromatography test was developed and its performance characteristics determined by [facility]. It has not been cleared or approved by the FDA. The laboratory is regulated under CLIA as qualified to perform high-complexity testing. This test is used for clinical purposes. It should not be regarded as investigational or for research.Test performed by:[facility] Reference [address] [place] [id number] Performed By: #### 4 6683 #### LAB [address] [place] [address] Jack Mendoza M.D. [id number] Ethanol [Mass/Vol] Not detected Normal Not Detected [facility] Comment on above: Order Comment: This Gas Chromatography test was developed and its performance characteristics determined by [facility]. It has not been cleared or approved by the FDA. The laboratory is regulated under CLIA as qualified to perform high-complexity testing. This test is used for clinical purposes. It should not be regarded as investigational or for research.Test performed by:[facility] Reference [address] [place] [address] Performed By: #### 4 6683 ####[facility] [address] [address] Jack Mendoza M.D. [id number] ETHANOL QUANT, BLOOD <10 Normal [facility] Comment on above: Order Comment: This Gas Chromatography test was developed and its performance characteristics determined by [facility]. It has not been cleared or approved by the FDA. The laboratory is regulated under CLIA as qualified to perform high-complexity testing. This test is used for clinical purposes. It should not be regarded as investigational or for research.Test performed by:[facility] Reference [address] [place], [place] [id number] Performed By: #### 4 6683 ####[facility] LAB [address] [place] [address] Jack Mendoza M.D. [id number] ISOPROPANOL QUANT, BLOOD <10 Normal [facility] Comment on above: Order Comment: This Gas Chromatography test was developed and its performance characteristics determined by [facility]. It has not been cleared or approved by the FDA. The laboratory is regulated under CLIA as qualified to perform high-complexity testing. This test is used for clinical purposes. It should not be regarded as investigational or for research.Test performed by:[facility] Reference [address] [place] [address] Performed By: #### 4 6683 ####[facility] LAB [address] [place] [address] Jack Mendoza M.D. [id number] ISOPROPANOL, BLOOD Not detected Normal Not Detected [facility] Comment on above: Order Comment: This Gas Chromatography test was developed and its performance characteristics determined by [facility]. It has not been cleared or approved by the FDA. The laboratory is regulated under CLIA as qualified to perform high-complexity testing. This test is used for clinical purposes. It should not be regarded as investigational or for research.Test performed by:[facility] Reference [address] [place], [place] [id number] Performed By: #### 4 6683 ####MH LAB [address] [place], [place] [address] Jack Mendoza M.D. [id number] METHANOL QUANT, BLOOD <10 Normal [facility] Comment on above: Order Comment: This Gas Chromatography test was developed and its performance characteristics determined by [facility]. It has not been cleared or approved by the FDA. The laboratory is regulated under CLIA as qualified to perform high-complexity testing. This test is used for clinical purposes. It should not be regarded as investigational or for research.Test performed by:[facility] Reference [address] [place] [address] Performed By: #### 4 6683 #### LAB [address] [address] Jack Mendoza M.D. [id number] METHANOL, BLOOD Not detected Normal Not Detected [facility] Comment on above: Order Comment: This Gas Chromatography test was developed and its performance characteristics determined by [facility]. It has not been cleared or approved by the FDA. The laboratory is regulated under CLIA as qualified to perform high-complexity testing. This test is used for clinical purposes. It should not be regarded as investigational or for research.Test performed by:[facility] Reference [address] [place] [address] Performed By: #### 4 6683 #### LAB [address] [place], [place] [address] Jack Mendoza M.D. [id number] XR ABDOMEN /KUB/FLAT PLATE/1 VIEWon 02-11-2025 XR ABDOMEN /KUB/FLAT PLATE/1 VIEW [facility] Comment on above: Order Comment: Injur y/Trauma or Illness?:Illness/OtherHow long have you had these symptoms (acute/chronic)?:AcuteReason for exam?:OG PLACEMENTHistory of cancer?:uSurgeries, chemotherapy, or radiation?:uType of Exam?:InitialAdditional signs and symptoms?:. XR CHEST PA/APon 02-11-2025 XR CHEST PA/AP [facility] Comment on above: Order Comment: Injur y/Trauma or Illness?:Illness/OtherHow long have you had these symptoms (acute/chronic)?:AcuteReason for exam?:ETT PLACEMENTHistory of cancer?:uSurgeries, chemotherapy, or radiation?:uType of Exam?:InitialAdditional signs and symptoms?:. Order Comment: Injur y/Trauma or Illness?:Illness/OtherHow long have you had these symptoms (acute/chronic)?:AcuteReason for exam?:amsHistory of cancer?:uSurgeries, chemotherapy, or radiation?:uType of Exam?:InitialAdditional signs and symptoms?:. No Panel Informationon 12-21 [facility] Cecilia Gonzales DPM 12/23/2024 8:04 [...] Response to treatment: procedure was tolerated well [facility] Wound Debridementon 12-22-19 Cecilia Gonzales [...] Response to treatment: procedure was tolerated well [facility] WOUND AEROBIC CULTUREon 10-21 WOUND AEROBIC CULTURE AEROBIC CULTURE Light Growth Normal Skin Sobeida GRAM STAIN RESULT Many WBC Rare Gram Positive Cocci Normal [facility] Comment on above: Order Comment: Origi jesu ordered as [facility] Test specimen; reordered as [facility] specimen to be ran at [facility] Microbiology. Performed By: #### 4 4060 ####[facility] [address] [place], [place] [address] Venancio Richardson M.D. [id number] XR FOOT RIGHT 3+ VIEWS (JEREMIAS DARSajan)on 11-09-2024 XR FOOT RIGHT 3+ VIEWS (STANDARD) Normal [facility] Comment on above: Order Comment: Injur y/Trauma or Illness?:Illness/OtherHow long have you had these symptoms (acute/chronic)?:ChronicReason for exam?:plantar medial ulcer probes down to boneHistory of cancer?:uSurgeries, chemotherapy, or radiation?:uType of Exam?:OngoingAdditional signs and symptoms?:u CBC Auto Differentialon Erythrocyte distribution width (RBC) [Entitic vol] 16.4 % High 11.6 - 14.8 % [facility] Hematocrit (Bld) [Volume fraction] 34.3 % Low 41.0 - 53.0 % [facility] Hemoglobin (Bld) [Mass/Vol] 10 g/dL Low 13.5 - 17.5 g/dL [facility] MCH (RBC) [Entitic mass] 20.1 pg Low 26.0 - 34.0 pg [facility] MCHC (RBC) [Mass/Vol] 29.2 g/dL Low 31.0 - 37.0 g/dL [facility] MCV (RBC) [Entitic vol] 68.9 fL Low 80.0 - 100.0 fL [facility] Nucleated RBC (Bld) [#/Vol] 0 10*3/uL [facility] Nucleated RBC/100 WBC (Bld) [Ratio] 0 % [facility] Platelets (Bld) [#/Vol] 107 10*3/uL Low [facility] RBC (Bld) [#/Vol] 4.98 10*6/uL [facility] WBC (Bld) [#/Vol] 4.11 10*3/uL Low [facility] CBC WITH AUTO DIFFERENTIALon 10-24-2024 AUTO NRBC 0.0 % Normal [facility] Comment on above: Performed By: #### L [id number] #### LAB [address] [address] Jack Mendoza M.D. [id number] AUTO NRBC ABS COUNT 0.00 K/mcL Normal 0.00-0.00 [facility] Comment on above: Performed By: #### L [id number] ####[facility] [address] [address] Jack Mendoza M.D. [id number] Erythrocyte distribution width (RBC) [Ratio] 16.4 % High 11.6-14.8 [facility] Comment on above: Performed By: #### L [id number] #### LAB [address] [address] Jack Mendoza M.D. [id number] Hematocrit (Bld) [Volume fraction] 34.3 % Low 41.0-53.0 [facility] Comment on above: Performed By: #### L [id number] ####[facility] [address] [address] Jack Mendoza M.D. [id number] Hemoglobin (Bld) [Mass/Vol] 10.0 g/dL Low 13.5-17.5 [facility] Comment on above: Performed By: #### L [id number] ####[facility] [address] [address] Jack Mendoza M.D. [id number] MCH (RBC) [Entitic mass] 20.1 pg Low 26.0-34.0 [facility] Comment on above: Performed By: #### L [id number] ####[facility] LAB [address] [address] Jack Mendoza M.D. [id number] MCV (RBC) [Entitic vol] 68.9 fL Low 80.0-100.0 [facility] Comment on above: Performed By: #### L [id number] #### LAB [address] [address] Jack Mendoza M.D. [id number] MEAN CORPUSCULAR HEMOGLOBIN CONC 29.2 g/dL Low 31.0-37.0 [facility] Comment on above: Performed By: #### L [id number] ####[facility] LAB [address] [address] Jack Mendoza M.D. [id number] Platelets (Bld) [#/Vol] 107 10*3/uL Low 150-400 [facility] Comment on above: Performed By: #### L [id number] ####[facility] LAB [address] [address] Jack Mendoza M.D. [id number] RBC (Bld) [#/Vol] 4.98 10*6/uL Normal 4.50-5.90 [facility] Comment on above: Performed By: #### L [id number] #### LAB [address] [address] Jack Mendoza M.D. [id number] WBC (Bld) [#/Vol] 4.11 10*3/uL Low 4.50-11.00 [facility] Comment on above: Performed By: #### L [id number] #### LAB [address] [place] [address] Jack Mendoza M.D. [id number] CBC and Diff Morphologyon Ovalocytes LM Ql (Bld) Many [facility] Platelets LM Ql (Bld) Decreased Abnormal Normal [facility] RBC morphology finding Nom (Bld) See Comment [facility] Comment on above: RBC Indices confirme d with manual peripheral smear review. Schistocytes Auto Ql (Bld) Few Abnormal See Comment [facility] Stomatocytes LM Ql (Bld) Few [facility] Target cells LM Ql (Bld) Moderate [facility] Disch Summon 10-24-2024 Disch Summ Normal [facility] MANUAL DIFFERENTIALon 2024 BASOPHILS - ABS (DIFF) 0.04 K/mcL Normal 0.00-0.30 [facility] Comment on above: Performed By: #### 4 [id number] #### LAB [address] [address] Jack Mendoza M.D. [id number] BASOPHILS - REL (DIFF) 0.9 % [facility] Comment on above: Performed By: #### 4 5402 #### LAB [address] [address] Jack Mendoza M.D. [id number] EOSINOPHILS - ABS (DIFF) 0.21 K/mcL Normal 0.00-0.50 [facility] Comment on above: Performed By: #### 4 5494 #### LAB [address] [address] Jack Mendoza M.D. [id number] EOSINOPHILS - REL (DIFF) 5.1 % [facility] Comment on above: Performed By: #### 4 8107 #### LAB [address] [address] Jack Mendoza M.D. [id number] LYMPHOCYTE ATYPICAL - REL (DIFF) 2.5 % [facility] Comment on above: Performed By: #### 4 4220 #### LAB [address] [address] Jack Mendoza M.D. [id number] LYMPHOCYTES - ABS (DIFF) 0.97 K/mcL Normal 0.90-4.00 [facility] Comment on above: Performed By: #### 4 8957 #### LAB [address] [address] Jack Mendoza M.D. [id number] LYMPHOCYTES - REL (DIFF) 21.2 % [facility] Comment on above: Performed By: #### 4 1811 #### LAB [address] [address] Jack Mendoza M.D. [id number] METAMYELOCYTES-REL (DIFF) 0.8 % [facility] Comment on above: Performed By: #### 4 8179 #### LAB [address] [address] Jack Mendoza M.D. [id number] MONOCYTES - ABS (DIFF) 0.24 K/mcL Low 0.30-0.90 [facility] Comment on above: Performed By: #### 4 5456 #### LAB [address] [address] Jack Mendoza M.D. [id number] MONOCYTES - REL (DIFF) 5.9 % Normal [facility] Comment on above: Performed By: #### 4 5456 #### LAB [address] [address] Jack Mendoza M.D. [id number] NEUTROPHILS - ABS (DIFF) 2.65 K/mcL Normal 1.70-7.00 [facility] Comment on above: Performed By: #### 4 5456 #### LAB [address] [address] Jack Mendoza M.D. [id number] NEUTROPHILS - REL (DIFF) 63.6 % Normal [facility] Comment on above: Performed By: #### 4 5456 #### LAB [address] [address] Jack Mendoza M.D. [id number] MORPHOLOGYon 10-24-2024 OVAL SCAN Many Normal [facility] Comment on above: Performed By: #### L [id number] ####[facility] LAB [address] [address] Jack Mendoza M.D. [id number] PLATELET ESTIMATE Decreased Abnormal Normal [facility] Comment on above: Performed By: #### L [id number] ####[facility] LAB [address] [address] Jack Mendoza M.D. [id number] RBC MORPH SCAN See Comment Normal [facility] Comment on above: Result Comment: RBC Indices confirmed with manual peripheral smear review. Performed By: #### L [id number] ####[facility] LAB [address] [address] Jack Mendoza M.D. [id number] SCHISTO SCAN Few Abnormal See Comment [facility] Comment on above: Performed By: #### L [id number] ####[facility] LAB [address] [place], [place] [address] Jack Mendoza M.D. [id number] STOMATOCYTES Few Normal [facility] Comment on above: Performed By: #### L [id number] ####[facility] LAB [address] [place], [place] [address] Jack Mendoza M.D. [id number] TARGET CELL SCAN Moderate Normal [facility] Comment on above: Performed By: #### L [id number] ####[facility] LAB [address] [place], [place] [address] Jack Mendoza M.D. [id number] Manual Differential panel (B ld)on 10-24-2024 Basophils (Bld) [#/Vol] 0.04 10*3/uL [facility] Basophils/100 WBC (Bld) 0.9 % [facility] Eosinophils (Bld) [#/Vol] 0.21 10*3/uL [facility] Eosinophils/100 WBC (Bld) 5.1 % [facility] Lymphocytes (Bld) [#/Vol] 0.97 10*3/uL [facility] Lymphocytes/100 WBC (Bld) 21.2 % [facility] Metamyelocytes/100 WBC (Bld) 0.8 % [facility] Monocytes (Bld) [#/Vol] 0.24 10*3/uL Low [facility] Monocytes/100 WBC (Bld) 5.9 % [facility] Neutrophils (Bld) [#/Vol] 2.65 10*3/uL [facility] Neutrophils/100 WBC (Bld) 63.6 % [facility] Variant lymphocytes/100 WBC (Bld) 2.5 % [facility] No Panel Informationon 10-24 Interpretation and review of laboratory results Abnormal [facility] CBC Auto Differentialon Erythrocyte distribution width (RBC) [Entitic vol] 17.3 % High 11.6 - 14.8 % [facility] Hematocrit (Bld) [Volume fraction] 38 % Low 41.0 - 53.0 % [facility] Hemoglobin (Bld) [Mass/Vol] 11.4 g/dL Low 13.5 - 17.5 g/dL [facility] MCH (RBC) [Entitic mass] 20.7 pg Low 26.0 - 34.0 pg [facility] MCHC (RBC) [Mass/Vol] 30 g/dL Low 31.0 - 37.0 g/dL [facility] MCV (RBC) [Entitic vol] 68.8 fL Low 80.0 - 100.0 fL [facility] Nucleated RBC (Bld) [#/Vol] 0 10*3/uL [facility] Nucleated RBC/100 WBC (Bld) [Ratio] 0 % [facility] Platelet mean volume (Bld) [Entitic vol] 9.3 fL Low 9.4 - 12.4 fL [facility] Platelets (Bld) [#/Vol] 118 10*3/uL Low [facility] RBC (Bld) [#/Vol] 5.52 10*6/uL [facility]alth WBC (Bld) [#/Vol] 5.5 10*3/uL [facility] CBC WITH AUTO DIFFERENTIALon 10-23-2024 AUTO NRBC 0.0 % Normal [facility] Comment on above: Performed By: #### L [id number] #### LAB [address] [address] Jack Mendoza M.D. [id number] AUTO NRBC ABS COUNT 0.00 K/mcL Normal 0.00-0.00 [facility] Comment on above: Performed By: #### L [id number] #### LAB [address] [address] Jack Mendoza M.D. [id number] Erythrocyte distribution width (RBC) [Ratio] 17.3 % High 11.6-14.8 [facility] Comment on above: Performed By: #### L [id number] #### LAB [address] [address] Jack Mendoza M.D. [id number] Hematocrit (Bld) [Volume fraction] 38.0 % Low 41.0-53.0 [facility] Comment on above: Performed By: #### L [id number] #### LAB [address] [address] Jack Mendoza M.D. [id number] Hemoglobin (Bld) [Mass/Vol] 11.4 g/dL Low 13.5-17.5 [facility] Comment on above: Performed By: #### L [id number] ####[facility] LAB [address] [address] Jack Mendoza M.D. [id number] MCH (RBC) [Entitic mass] 20.7 pg Low 26.0-34.0 [facility] Comment on above: Performed By: #### L [id number] ####[facility] LAB [address] [address] Jack Mendoza M.D. [id number] MCV (RBC) [Entitic vol] 68.8 fL Low 80.0-100.0 [facility] Comment on above: Performed By: #### L [id number] ####[facility] LAB [address] [address] Jack Mendoza M.D. [id number] MEAN CORPUSCULAR HEMOGLOBIN CONC 30.0 g/dL Low 31.0-37.0 [facility] Comment on above: Performed By: #### L [id number] ####[facility] LAB [address] [address] Jack Mendoza M.D. [id number] Platelet mean volume (Bld) [Entitic vol] 9.3 fL Low 9.4-12.4 [facility] Comment on above: Performed By: #### L [id number] ####[facility] LAB [address] [place] [address] Jack Mendoza M.D. [id number] Platelets (Bld) [#/Vol] 118 10*3/uL Low 150-400 [facility] Comment on above: Performed By: #### L [id number] ####[facility] LAB [address] [address] Jack Mendoza M.D. [id number] RBC (Bld) [#/Vol] 5.52 10*6/uL Normal 4.50-5.90 [facility] Comment on above: Performed By: #### L [id number] ####[facility] LAB [address] [place] [address] Jack Mendoza M.D. [id number] WBC (Bld) [#/Vol] 5.50 10*3/uL Normal 4.50-11.00 [facility] Comment on above: Performed By: #### L [id number] #### LAB [address] [address] Jack Mendoza M.D. [id number] CBC and Diff Morphologyon Neutrophils.vacuolat ed LM Ql (Bld) Present [facility] Ovalocytes LM Ql (Bld) Many [facility] Platelets Large Auto Ql (Bld) Few [facility] Platelets LM Ql (Bld) Decreased Abnormal Normal [facility] Polychromasia LM Ql (Bld) Few [facility] RBC morphology finding Nom (Bld) See Comment [facility] Comment on above: RBC Indices confirme d with manual peripheral smear review. Schistocytes Auto Ql (Bld) Few Abnormal See Comment [facility] Target cells LM Ql (Bld) Many [facility] MANUAL DIFFERENTIALon 2024 BASOPHILS - ABS (DIFF) 0.00 K/mcL Normal 0.00-0.30 [facility] Comment on above: Performed By: #### 4 [id number] #### LAB [address] [address] Jack Mendoza M.D. [id number] BASOPHILS - REL (DIFF) 0.0 % Normal [facility] Comment on above: Performed By: #### 4 5456 #### LAB [address] [address] Jack Mendoza M.D. [id number] EOSINOPHILS - ABS (DIFF) 0.29 K/mcL Normal 0.00-0.50 [facility] Comment on above: Performed By: #### 4 5456 #### LAB [address] [id number] Jack Mendoza M.D. [id number] EOSINOPHILS - REL (DIFF) 5.3 % Normal [facility] Comment on above: Performed By: #### 4 5456 #### LAB [address] [address] Jack Mendoza M.D. [id number] LYMPHOCYTES - ABS (DIFF) 0.63 K/mcL Low 0.90-4.00 [facility] Comment on above: Performed By: #### 4 5456 #### LAB [address] [address] Jack Mendoza M.D. [id number] LYMPHOCYTES - REL (DIFF) 11.4 % Normal [facility] Comment on above: Performed By: #### 4 5456 #### LAB [address] [address] Jack Mendoza M.D. [id number] MONOCYTES - ABS (DIFF) 0.53 K/mcL Normal 0.30-0.90 [facility] Comment on above: Performed By: #### 4 5456 #### LAB [address] [address] Jack Mendoza M.D. [id number] MONOCYTES - REL (DIFF) 9.6 % Normal [facility] Comment on above: Performed By: #### 4 5456 #### LAB [address] [address] Jack Mendoza M.D. [id number] NEUTROPHILS - ABS (DIFF) 4.05 K/mcL Normal 1.70-7.00 [facility] Comment on above: Performed By: #### 4 5456 #### LAB [address] [address] Jack Mendoza M.D. [id number] NEUTROPHILS - REL (DIFF) 73.7 % [facility] Comment on above: Performed By: #### 4 5456 #### LAB [address] [address] Jack Mendoza M.D. [id number] MORPHOLOGYon 10-23-2024 OVAL SCAN Many Normal [facility] Comment on above: Performed By: #### L [id number] ####[facility] LAB [address] [address] Jack Mendoza M.D. [id number] PLATELET ESTIMATE Decreased Abnormal Normal [facility] Comment on above: Performed By: #### L [id number] ####[facility] LAB [address] [address] Jack Mendoza M.D. [id number] PLATELETS LARGE Few Normal [facility] Comment on above: Performed By: #### L [id number] ####[facility] LAB [address] [place], [place] [address] Jack Mendoza M.D. [id number] POLY SCAN Few Normal [facility] Comment on above: Performed By: #### L [id number] ####[facility] LAB [address] [address] Jack Mendoza M.D. [id number] RBC MORPH SCAN See Comment Normal [facility] Comment on above: Result Comment: RBC Indices confirmed with manual peripheral smear review. Performed By: #### L [id number] ####[facility] LAB [address] [address] Jack Mendoza M.D. [id number] SCHISTO SCAN Few Abnormal See Comment [facility] Comment on above: Performed By: #### L [id number] ####[facility] LAB [address] [address] Jack Mendoza M.D. [id number] TARGET CELL SCAN Many Normal [facility] Comment on above: Performed By: #### L [id number] ####[facility] LAB [address] [address] Jack Mendoza M.D. [id number] VACUOLATED GRANULOCYTES Present Normal [facility] Comment on above: Performed By: #### L [id number] ####[facility] LAB [address] [address] Jack Mendoza M.D. [id number] Manual Differential panel (B ld)on 10-23-2024 Basophils (Bld) [#/Vol] 0 10*3/uL [facility] Basophils/100 WBC (Bld) 0 % [facility] Eosinophils (Bld) [#/Vol] 0.29 10*3/uL [facility] Eosinophils/100 WBC (Bld) 5.3 % [facility] Lymphocytes (Bld) [#/Vol] 0.63 10*3/uL Low [facility] Lymphocytes/100 WBC (Bld) 11.4 % [facility] Monocytes (Bld) [#/Vol] 0.53 10*3/uL [facility] Monocytes/100 WBC (Bld) 9.6 % [facility] Neutrophils (Bld) [#/Vol] 4.05 10*3/uL [facility] Neutrophils/100 WBC (Bld) 73.7 % [facility] No Panel Informationon 10-23 Interpretation and review of laboratory results Abnormal [facility] BASIC METABOLIC PANELon Anion gap [Moles/Vol] 12 mmol/L Normal 10-20 [facility] Comment on above: Order Comment: [facility] has implemented the eGFR calculation approach that does not have a coefficient for race that conforms to the NKF-ASN Task Force Recommendations. Performed By: #### 4 6124 #### LAB [address] [address] Jack Mendoza M.D. [id number] Calcium [Mass/Vol] 8.9 mg/dL Normal 8.4-10.2 [facility] Comment on above: Order Comment: [facility] has implemented the eGFR calculation approach that does not have a coefficient for race that conforms to the NKF-ASN Task Force Recommendations. Performed By: #### 4 6124 #### LAB [address] [address] Jack Mendoza M.D. [id number] Chloride [Moles/Vol] 92 mmol/L Low 98-108 [facility] Comment on above: Order Comment: [facility] has implemented the eGFR calculation approach that does not have a coefficient for race that conforms to the NKF-ASN Task Force Recommendations. Performed By: #### 4 6124 #### LAB [address] [address] Jack Mendoza M.D. [id number] Creatinine [Mass/Vol] 0.72 mg/dL Normal 0.50-1.30 [facility] Comment on above: Order Comment: [facility] has implemented the eGFR calculation approach that does not have a coefficient for race that conforms to the NKF-ASN Task Force Recommendations. Performed By: #### 4 6124 #### LAB [address] [address] Jack Mendoza M.D. [id number] EGFR 106 mL/min/1.73 m2 Normal >=60 [facility] Comment on above: Order Comment: [facility] has implemented the eGFR calculation approach that does not have a coefficient for race that conforms to the NKF-ASN Task Force Recommendations. Result Comment: Ashley mated GFR was calculated using the 2020 CKD-EPI creatinine equation. Performed By: #### 4 6124 #### LAB [address] [address] Jack Mendoza M.D. [id number] Glucose [Mass/Vol] 121 mg/dL High 65-99 [facility] Comment on above: Order Comment: [facility] has implemented the eGFR calculation approach that does not have a coefficient for race that conforms to the NKF-ASN Task Force Recommendations. Performed By: #### 4 6124 ####[facility] LAB [address] [address] Jack Mendoza M.D. [id number] HCO3 (Bld) [Moles/Vol] 34 mmol/L High 21-32 [facility] Comment on above: Order Comment: [facility] has implemented the eGFR calculation approach that does not have a coefficient for race that conforms to the NKF-ASN Task Force Recommendations. Performed By: #### 4 6124 ####[facility] LAB [address] [address] Jack Mendoza M.D. [id number] Potassium [Moles/Vol] 4.4 mmol/L Normal 3.5-5.1 [facility] Comment on above: Order Comment: [facility] has implemented the eGFR calculation approach that does not have a coefficient for race that conforms to the NKF-ASN Task Force Recommendations. Performed By: #### 4 6124 ####[facility] LAB [address] [address] Jack Mendoza M.D. [id number] Sodium [Moles/Vol] 134 mmol/L Low 135-145 [facility] Comment on above: Order Comment: [facility] has implemented the eGFR calculation approach that does not have a coefficient for race that conforms to the NKF-ASN Task Force Recommendations. Performed By: #### 4 6124 #### LAB [address] [place], [place] [address] Jack Mendoza M.D. [id number] Urea nitrogen [Mass/Vol] 21 mg/dL Normal 8-25 [facility] Comment on above: Order Comment: [facility] has implemented the eGFR calculation approach that does not have a coefficient for race that conforms to the NKF-ASN Task Force Recommendations. Performed By: #### 4 6124 #### LAB [address] [place], [place] [address] Jack Mendoza M.D. [id number] Urea nitrogen/Creatinine [Mass ratio] 29.2 mg/mg High 10.0-20.0 [facility] Comment on above: Order Comment: [facility] has implemented the eGFR calculation approach that does not have a coefficient for race that conforms to the NKF-ASN Task Force Recommendations. Performed By: #### 4 6124 #### LAB [address] [place], [place] [address] Jack Mendoza M.D. [id number] Basic metabolic 2000 panelon 10-22-2024 Anion gap [Moles/Vol] 12 mmol/L 10 - 20 mmol/L [facility] Calcium [Mass/Vol] 8.9 mg/dL 8.4 - 10. 2 mg/dL [facility] Chloride [Moles/Vol] 92 mmol/L Low 98 - 10 8 mmol/L [facility] Creatinine [Mass/Vol] 0.72 mg/dL 0.50 - 1.30 mg/dL [facility] GFR/1.73 sq M.predicted CKD-EPI (S/P/Bld) [Vol rate/Area] 106 - PINF [facility] Comment on above: Estimated GFR was ca lculated using the 2020 CKD-EPI creatinine equation. Glucose [Mass/Vol] 121 mg/dL High 65 - 99 mg/dL [facility] HCO3 [Moles/Vol] 34 mmol/L High 21 - 32 mmol/L [facility] Interpretation and review of laboratory results Abnormal [facility] Potassium [Moles/Vol] 4.4 mmol/L 3.5 - 5.1 mmol/L [facility] Sodium [Moles/Vol] 134 mmol/L Low 135 - 145 mmol/L [facility] Urea nitrogen [Mass/Vol] 21 mg/dL 8 - 25 mg/dL [facility] Urea nitrogen/Creatinine [Mass ratio] 29.2 mg/mg High 10.0 - 20.0 [facility] has implemented the eGFR calculation approach that does not have a coefficient for race that conforms to the NKF-ASN Task Force Recommendations. [facility] CBC Auto Differentialon Basophils (Bld) [#/Vol] 0.02 10*3/uL [facility] Basophils/100 WBC (Bld) 0.4 % [facility] Eosinophils (Bld) [#/Vol] 0.16 10*3/uL [facility] Eosinophils/100 WBC (Bld) 3.5 % [facility] Erythrocyte distribution width (RBC) [Entitic vol] 17 % High 11.6 - 14.8 % [facility] Hematocrit (Bld) [Volume fraction] 38 % Low 41.0 - 53.0 % [facility] Hemoglobin (Bld) [Mass/Vol] 11.2 g/dL Low 13.5 - 17.5 g/dL [facility] Immature granulocytes (Bld) [#/Vol] 0.03 10*3/uL [facility] Immature granulocytes/100 WBC (Bld) 0.7 % [facility] Comment on above: The IG parameter is the percentage of metamyelocytes, myelocytes and promyelocytes. An immature granulocyte count (IG) of 1% or more suggests the possibility of infection, an IG count of 3% is very likely related to an infection. Interpretation and review of laboratory results Abnormal [facility] Lymphocytes (Bld) [#/Vol] 0.66 10*3/uL Low [facility] Lymphocytes/100 WBC (Bld) 14.6 % [facility] MCH (RBC) [Entitic mass] 20.2 pg Low 26.0 - 34.0 pg [facility] MCHC (RBC) [Mass/Vol] 29.5 g/dL Low 31.0 - 37.0 g/dL [facility] MCV (RBC) [Entitic vol] 68.5 fL Low 80.0 - 100.0 fL [facility] Monocytes (Bld) [#/Vol] 0.71 10*3/uL [facility] Monocytes/100 WBC (Bld) 15.7 % [facility] Neutrophils (Bld) [#/Vol] 2.95 10*3/uL [facility] Neutrophils/100 WBC (Bld) 65.1 % [facility] Nucleated RBC (Bld) [#/Vol] 0 10*3/uL [facility] Nucleated RBC/100 WBC (Bld) [Ratio] 0 % [facility] Platelets (Bld) [#/Vol] 120 10*3/uL Low [facility] RBC (Bld) [#/Vol] 5.55 10*6/uL [facility] WBC (Bld) [#/Vol] 4.53 10*3/uL [facility] CBC WITH AUTO DIFFERENTIALon 10-22-2024 AUTO NRBC 0.0 % Normal [facility] Comment on above: Performed By: #### L [id number] #### LAB [address] [place] [address] Jack Mendoza M.D. [id number] AUTO NRBC ABS COUNT 0.00 K/mcL Normal 0.00-0.00 [facility] Comment on above: Performed By: #### L [id number] #### LAB [address] [address] Jack Mendoza M.D. [id number] BASOPHILS ABSOLUTE COUNT 0.02 K/mcL Normal 0.00-0.30 [facility] Comment on above: Performed By: #### L [id number] #### LAB [address] [place] [address] Jack Mendoza M.D. [id number] Basophils/100 WBC (Bld) 0.4 % Normal [facility] Comment on above: Performed By: #### L [id number] #### LAB [address] [address] Jack Mendoza M.D. [id number] Eosinophils (Bld) [#/Vol] 0.16 10*3/uL Normal 0.00-0.50 [facility] Comment on above: Performed By: #### L [id number] #### LAB [address] [place] [address] Jack Mendoza M.D. [id number] Eosinophils/100 WBC (Bld) 3.5 % Normal [facility] Comment on above: Performed By: #### L [id number] #### LAB [address] [address] Jack Mendoza M.D. [id number] Erythrocyte distribution width (RBC) [Ratio] 17.0 % High 11.6-14.8 [facility] Comment on above: Performed By: #### L [id number] #### LAB [address] [address] Jack Mendoza M.D. [id number] Hematocrit (Bld) [Volume fraction] 38.0 % Low 41.0-53.0 [facility] Comment on above: Performed By: #### L [id number] #### LAB [address] [address] Jack Mendoza M.D. [id number] Hemoglobin (Bld) [Mass/Vol] 11.2 g/dL Low 13.5-17.5 [facility] Comment on above: Performed By: #### L [id number] #### LAB [address] [address] Jack Mendoza M.D. [id number] IG ABSOLUTE 0.03 K/mcL Normal 0.00-0.30 [facility] Comment on above: Performed By: #### L [id number] #### LAB [address] [place] [address] Jack Mendoza M.D. [id number] IG PERCENT 0.70 % Normal [facility] Comment on above: Result Comment: The IG parameter is the percentage of metamyelocytes, myelocytes and promyelocytes. An immature granulocyte count (IG) of 1% or more suggests the possibility of infection, an IG count of 3% is very likely related to an infection. Performed By: #### L [id number] #### LAB [address] [place] [address] Jack Mendoza M.D. [id number] Lymphocytes (Bld) [#/Vol] 0.66 10*3/uL Low 0.90-4.00 [facility] Comment on above: Performed By: #### L [id number] #### LAB [address] [address] Jack Mendoza M.D. [id number] Lymphocytes/100 WBC (Bld) 14.6 % Normal [facility] Comment on above: Performed By: #### L [id number] #### LAB [address] [address] Jack Mendoza M.D. [id number] MCH (RBC) [Entitic mass] 20.2 pg Low 26.0-34.0 [facility] Comment on above: Performed By: #### L [id number] #### LAB [address] [address] Jack Mendoza M.D. [id number] MCV (RBC) [Entitic vol] 68.5 fL Low 80.0-100.0 [facility] Comment on above: Performed By: #### L [id number] #### LAB [address] [address] Jack Mendoza M.D. [id number] MEAN CORPUSCULAR HEMOGLOBIN CONC 29.5 g/dL Low 31.0-37.0 [facility] Comment on above: Performed By: #### L [id number] #### LAB [address] [address] Jack Mendoza M.D. [id number] Monocytes (Bld) [#/Vol] 0.71 10*3/uL Normal 0.30-0.90 [facility] Comment on above: Performed By: #### L [id number] #### LAB [address] [address] Jack Mendoza M.D. [id number] Monocytes/100 WBC (Bld) 15.7 % Normal [facility] Comment on above: Performed By: #### L [id number] #### LAB [address] [place] [address] Jack Mendoza M.D. [id number] NEUTROPHILS ABSOLUTE COUNT 2.95 K/mcL Normal 1.70-7.00 [facility] Comment on above: Performed By: #### L [id number] ####[facility] LAB [address] [address] Jack Mendoza M.D. [id number] Neutrophils/100 WBC (Bld) 65.1 % Normal [facility] Comment on above: Performed By: #### L [id number] ####[facility] [address] [address] Jack Mendoza M.D. [id number] Platelets (Bld) [#/Vol] 120 10*3/uL Low 150-400 [facility] Comment on above: Performed By: #### L [id number] ####[facility] LAB [address] [address] Jack Mendoza M.D. [id number] RBC (Bld) [#/Vol] 5.55 10*6/uL Normal 4.50-5.90 [facility] Comment on above: Performed By: #### L [id number] ####[facility] LAB [address] [address] Jack Mendoza M.D. [id number] WBC (Bld) [#/Vol] 4.53 10*3/uL Normal 4.50-11.00 [facility] Comment on above: Performed By: #### L [id number] ####[facility] LAB [address] [address] Jack Mendoza M.D. [id number] MAGNESIUM LEVELon 10-22-2024 Magnesium [Mass/Vol] 2.0 mg/dL Normal 1.6-2.4 [facility] Comment on above: Performed By: #### 4 [id number] ####[facility] LAB [address] [address] Jack Mendoza M.D. [id number] Magnesium Levelon 10-22-2024 Magnesium [Mass/Vol] 2 mg/dL 1.6 - 2 .4 mg/dL [facility] Magnesium [Mass/Vol]on 10-22 Interpretation and review of laboratory results Normal [facility] No Panel Informationon 10-22 [facility] CBC Auto Differentialon Erythrocyte distribution width (RBC) [Entitic vol] 16.5 % High 11.6 - 14.8 % [facility] Hematocrit (Bld) [Volume fraction] 36.7 % Low 41.0 - 53.0 % [facility] Hemoglobin (Bld) [Mass/Vol] 10.9 g/dL Low 13.5 - 17.5 g/dL [facility] MCH (RBC) [Entitic mass] 20.6 pg Low 26.0 - 34.0 pg [facility] MCHC (RBC) [Mass/Vol] 29.7 g/dL Low 31.0 - 37.0 g/dL [facility] MCV (RBC) [Entitic vol] 69.5 fL Low 80.0 - 100.0 fL [facility] Nucleated RBC (Bld) [#/Vol] 0 10*3/uL [facility] Nucleated RBC/100 WBC (Bld) [Ratio] 0 % [facility] Platelet mean volume (Bld) [Entitic vol] 9.6 fL 9.4 - 12.4 fL [facility] Platelets (Bld) [#/Vol] 119 10*3/uL Low [facility] RBC (Bld) [#/Vol] 5.28 10*6/uL [facility] WBC (Bld) [#/Vol] 3.67 10*3/uL Low [facility] CBC WITH AUTO DIFFERENTIALon 10-21-2024 AUTO NRBC 0.0 % Normal [facility] Comment on above: Performed By: #### L [id number] ####[facility] LAB [address] [address] Jack Mendoza M.D. [id number] AUTO NRBC ABS COUNT 0.00 K/mcL Normal 0.00-0.00 [facility] Comment on above: Performed By: #### L [id number] ####[facility] [address] [address] Jack Mendoza M.D. [id number] Erythrocyte distribution width (RBC) [Ratio] 16.5 % High 11.6-14.8 [facility] Comment on above: Performed By: #### L [id number] #### LAB [address] [address] Jack Mendoza M.D. [id number] Hematocrit (Bld) [Volume fraction] 36.7 % Low 41.0-53.0 [facility] Comment on above: Performed By: #### L [id number] #### LAB [address] [address] Jack Mendoza M.D. [id number] Hemoglobin (Bld) [Mass/Vol] 10.9 g/dL Low 13.5-17.5 [facility] Comment on above: Performed By: #### L [id number] ####[facility] [address] [address] Jack Mendoza M.D. [id number] MCH (RBC) [Entitic mass] 20.6 pg Low 26.0-34.0 [facility] Comment on above: Performed By: #### L [id number] ####[facility] [address] [address] Jack Mendoza M.D. [id number] MCV (RBC) [Entitic vol] 69.5 fL Low 80.0-100.0 [facility] Comment on above: Performed By: #### L [id number] #### LAB [address] [address] Jack Mendoza M.D. [id number] MEAN CORPUSCULAR HEMOGLOBIN CONC 29.7 g/dL Low 31.0-37.0 [facility] Comment on above: Performed By: #### L [id number] ####[facility] [address] [address] Jack Mendoza M.D. [id number] Platelet mean volume (Bld) [Entitic vol] 9.6 fL Normal 9.4-12.4 [facility] Comment on above: Performed By: #### L [id number] ####[facility] [address] [address] Jack Mendoza M.D. [id number] Platelets (Bld) [#/Vol] 119 10*3/uL Low 150-400 [facility] Comment on above: Performed By: #### L [id number] ####[facility] [address] [address] Jack Mendoza M.D. [id number] RBC (Bld) [#/Vol] 5.28 10*6/uL Normal 4.50-5.90 [facility] Comment on above: Performed By: #### L [id number] #### LAB [address] [address] Jack Mendoza M.D. [id number] WBC (Bld) [#/Vol] 3.67 10*3/uL Low 4.50-11.00 [facility] Comment on above: Performed By: #### L [id number] #### LAB [address] [address] Jack Mendoza M.D. [id number] CBC and Diff Morphologyon Neutrophils.vacuolat ed LM Ql (Bld) Present [facility] Ovalocytes LM Ql (Bld) Few [facility] Platelets Large Auto Ql (Bld) Few [facility] Polychromasia LM Ql (Bld) Few [facility] RBC morphology finding Nom (Bld) See Comment [facility] Comment on above: RBC Indices confirme d with manual peripheral smear review. Target cells LM Ql (Bld) Few [facility] MANUAL DIFFERENTIALon 2024 BASOPHILS - ABS (DIFF) 0.00 K/mcL Normal 0.00-0.30 [facility] Comment on above: Performed By: #### 4 [id number] #### LAB [address] [address] Jack Mendoza M.D. [id number] BASOPHILS - REL (DIFF) 0.0 % Normal [facility] Comment on above: Performed By: #### 4 [id number] #### LAB [address] [address] Jack Mendoza M.D. [id number] EOSINOPHILS - ABS (DIFF) 0.13 K/mcL Normal 0.00-0.50 [facility] Comment on above: Performed By: #### 4 [id number] #### LAB [address] [address] Jack Mendoza M.D. [id number] EOSINOPHILS - REL (DIFF) 3.6 % Normal [facility] Comment on above: Performed By: #### 4 [id number] #### LAB [address] [address] Jack Mendoza M.D. [id number] LYMPHOCYTE ATYPICAL - REL (DIFF) 1.8 % Normal [facility] Comment on above: Performed By: #### 4 [id number] #### LAB [address] [address] Jack Mendoza M.D. [id number] LYMPHOCYTES - ABS (DIFF) 0.66 K/mcL Low 0.90-4.00 [facility] Comment on above: Performed By: #### 4 5456 #### LAB [address] [address] Jack Mendoza M.D. [id number] LYMPHOCYTES - REL (DIFF) 16.2 % [facility] Comment on above: Performed By: #### 4 5456 #### LAB [address] [address] aJck Mendoza M.D. [id number] MONOCYTES - ABS (DIFF) 0.33 K/mcL Normal 0.30-0.90 [facility] Comment on above: Performed By: #### 4 5456 #### LAB [address] [address] Jack Mendoza M.D. [id number] MONOCYTES - REL (DIFF) 9.0 % Normal [facility] Comment on above: Performed By: #### 4 [id number] #### LAB [address] [address] Jack Mendoza M.D. [id number] NEUTROPHILS - ABS (DIFF) 2.55 K/mcL Normal 1.70-7.00 [facility] Comment on above: Performed By: #### 4 [id number] #### LAB [address] [address] Jack Mendoza M.D. [id number] NEUTROPHILS - REL (DIFF) 69.4 % Normal [facility] Comment on above: Performed By: #### 4 [id number] ####[facility] LAB [address] [id number] Jack Mendoza M.D. [id number] MORPHOLOGYon 10-21-2024 OVAL SCAN Few [facility] Comment on above: Performed By: #### L [id number] ####[facility] LAB [address] [id number] Jack Mendoza M.D. [id number] PLATELETS LARGE Few [facility] Comment on above: Performed By: #### L [id number] ####[facility] LAB [address] [address] Jack Mendoza M.D. [id number] POLY SCAN Few [facility] Comment on above: Performed By: #### L [id number] ####[facility] LAB [address] [address] Jack Mendoza M.D. [id number] RBC MORPH SCAN See Comment [facility] Comment on above: Result Comment: RBC Indices confirmed with manual peripheral smear review. Performed By: #### L [id number] ####[facility] LAB [address] [id number] Jack Mendoza M.D. [id number] TARGET CELL SCAN Few [facility] Comment on above: Performed By: #### L [id number] ####[facility] [address] [address] Jack Mendoza M.D. [id number] VACUOLATED GRANULOCYTES Present [facility] Comment on above: Performed By: #### L [id number] ####[facility] LAB [address] [id number] Jack Mendoza M.D. [id number] Manual Differential panel (B ld)on 10-21-2024 Basophils (Bld) [#/Vol] 0 10*3/uL [facility] Basophils/100 WBC (Bld) 0 % [facility] Eosinophils (Bld) [#/Vol] 0.13 10*3/uL [facility] Eosinophils/100 WBC (Bld) 3.6 % [facility] Lymphocytes (Bld) [#/Vol] 0.66 10*3/uL Low [facility] Lymphocytes/100 WBC (Bld) 16.2 % [facility] Monocytes (Bld) [#/Vol] 0.33 10*3/uL [facility] Monocytes/100 WBC (Bld) 9 % [facility] Neutrophils (Bld) [#/Vol] 2.55 10*3/uL [facility] Neutrophils/100 WBC (Bld) 69.4 % [facility] Variant lymphocytes/100 WBC (Bld) 1.8 % [facility] No Panel Informationon 10-21 Interpretation and review of laboratory results Abnormal [facility] Bacteria identified Cx Nom ( Bld)on 10-20-2024 Interpretation and review of laboratory results Normal [facility] Interpretation and review of laboratory results Normal [facility] Blood Culture Aerobic/Anaero bicon 10-20-2024 Bacteria identified Cx Nom (Bld) No [facility] Cx Nom (Bld) No Growth after [facility] CBC Auto Differentialon Erythrocyte distribution width (RBC) [Entitic vol] 16.5 % High 11.6 - 14.8 % [facility] Hematocrit (Bld) [Volume fraction] 33.5 % Low 41.0 - 53.0 % [facility] Hemoglobin (Bld) [Mass/Vol] 10 g/dL Low 13.5 - 17.5 g/dL [facility] MCH (RBC) [Entitic mass] 20.7 pg Low 26.0 - 34.0 pg [facility] MCHC (RBC) [Mass/Vol] 29.9 g/dL Low 31.0 - 37.0 g/dL [facility] MCV (RBC) [Entitic vol] 69.4 fL Low 80.0 - 100.0 fL [facility] Nucleated RBC (Bld) [#/Vol] 0 10*3/uL [facility] Nucleated RBC/100 WBC (Bld) [Ratio] 0 % [facility] Platelet mean volume (Bld) [Entitic vol] 9.6 fL 9.4 - 12.4 fL [facility] Platelets (Bld) [#/Vol] 109 10*3/uL Low [facility] RBC (Bld) [#/Vol] 4.83 10*6/uL [facility] WBC (Bld) [#/Vol] 3.49 10*3/uL Low [facility] CBC WITH AUTO DIFFERENTIALon 10-20-2024 AUTO NRBC 0.0 % Normal [facility] Comment on above: Performed By: #### L [id number] ####[facility] LAB [address] [address] Jack Mendoza M.D. [id number] AUTO NRBC ABS COUNT 0.00 K/mcL Normal 0.00-0.00 [facility] Comment on above: Performed By: #### L [id number] ####[facility] [address] [address] Jack Mendoza M.D. [id number] Erythrocyte distribution width (RBC) [Ratio] 16.5 % High 11.6-14.8 [facility] Comment on above: Performed By: #### L [id number] #### LAB [address] [address] Jack Mendoza M.D. [id number] Hematocrit (Bld) [Volume fraction] 33.5 % Low 41.0-53.0 [facility] Comment on above: Performed By: #### L [id number] #### LAB [address] [address] Jack Mendoza M.D. [id number] Hemoglobin (Bld) [Mass/Vol] 10.0 g/dL Low 13.5-17.5 [facility] Comment on above: Performed By: #### L [id number] #### LAB [address] [address] Jack Mendoza M.D. [id number] MCH (RBC) [Entitic mass] 20.7 pg Low 26.0-34.0 [facility] Comment on above: Performed By: #### L [id number] ####[facility] [address] [address] Jack Mendoza M.D. [id number] MCV (RBC) [Entitic vol] 69.4 fL Low 80.0-100.0 [facility] Comment on above: Performed By: #### L [id number] #### LAB [address] [address] Jack Mendoza M.D. [id number] MEAN CORPUSCULAR HEMOGLOBIN CONC 29.9 g/dL Low 31.0-37.0 [facility] Comment on above: Performed By: #### L [id number] #### LAB [address] [address] Jack Mendoza M.D. [id number] Platelet mean volume (Bld) [Entitic vol] 9.6 fL Normal 9.4-12.4 [facility] Comment on above: Performed By: #### L [id number] ####[facility] LAB [address] [address] Jack Mendoza M.D. [id number] Platelets (Bld) [#/Vol] 109 10*3/uL Low 150-400 [facility] Comment on above: Performed By: #### L [id number] #### LAB [address] [address] Jack Mendoza M.D. [id number] RBC (Bld) [#/Vol] 4.83 10*6/uL Normal 4.50-5.90 [facility] Comment on above: Performed By: #### L [id number] #### LAB [address] [address] Jack Mendoza M.D. [id number] WBC (Bld) [#/Vol] 3.49 10*3/uL Low 4.50-11.00 [facility] Comment on above: Performed By: #### L [id number] #### LAB [address] [address] Jack Mendoza M.D. [id number] CBC and Diff Morphologyon Neutrophils.vacuolat ed LM Ql (Bld) Present [facility] Ovalocytes LM Ql (Bld) Few [facility] Platelets LM Ql (Bld) Decreased Abnormal Normal [facility] Polychromasia LM Ql (Bld) Few [facility] RBC morphology finding Nom (Bld) See Comment [facility] Comment on above: RBC Indices confirme d with manual peripheral smear review. Target cells LM Ql (Bld) Moderate [facility] MANUAL DIFFERENTIALon 2024 BASOPHILS - ABS (DIFF) 0.03 K/mcL Normal 0.00-0.30 [facility] Comment on above: Performed By: #### 4 7256 #### LAB [address] [address] Jack Mendoza M.D. [id number] BASOPHILS - REL (DIFF) 0.9 % [facility] Comment on above: Performed By: #### 4 1352 #### LAB [address] [address] Jack Mendoza M.D. [id number] EOSINOPHILS - ABS (DIFF) 0.15 K/mcL Normal 0.00-0.50 [facility] Comment on above: Performed By: #### 4 5456 #### LAB [address] [address] Jack Mendoza M.D. [id number] EOSINOPHILS - REL (DIFF) 4.3 % [facility] Comment on above: Performed By: #### 4 5856 #### LAB [address] [address] Jack Mendoza M.D. [id number] LYMPHOCYTES - ABS (DIFF) 0.34 K/mcL Low 0.90-4.00 [facility] Comment on above: Performed By: #### 4 6156 #### LAB [address] [place] [address] Jack Mendoza M.D. [id number] LYMPHOCYTES - REL (DIFF) 9.6 % [facility] Comment on above: Performed By: #### 4 2194 #### LAB [address] [address] Jack Mendoza M.D. [id number] MONOCYTES - ABS (DIFF) 0.15 K/mcL Low 0.30-0.90 [facility] Comment on above: Performed By: #### 4 9202 #### LAB [address] [place] [address] Jack Mendoza M.D. [id number] MONOCYTES - REL (DIFF) 4.3 % [facility] Comment on above: Performed By: #### 4 5456 #### LAB [address] [address] Jack Mendoza M.D. [id number] NEUTROPHILS - ABS (DIFF) 2.82 K/mcL Normal 1.70-7.00 [facility] Comment on above: Performed By: #### 4 5456 ####[facility] [address] [address] Jack Mendoza M.D. [id number] NEUTROPHILS - REL (DIFF) 80.9 % Normal [facility] Comment on above: Performed By: #### 4 5456 #### LAB [address] [address] Jack Mendoza M.D. [id number] MORPHOLOGYon 10-20-2024 OVAL SCAN Few Normal [facility] Comment on above: Performed By: #### L [id number] #### LAB [address] [address] Jack Mendoza M.D. [id number] PLATELET ESTIMATE Decreased Abnormal Normal [facility] Comment on above: Performed By: #### L [id number] #### LAB [address] [address] Jack Mendoza M.D. [id number] POLY SCAN Few Normal [facility] Comment on above: Performed By: #### L [id number] #### LAB [address] [address] Jack Mendoza M.D. [id number] RBC MORPH SCAN See Comment Normal [facility] Comment on above: Result Comment: RBC Indices confirmed with manual peripheral smear review. Performed By: #### L [id number] ####[facility] [address] [address] Jack Mendoza M.D. [id number] TARGET CELL SCAN Moderate Normal [facility] Comment on above: Performed By: #### L [id number] ####[facility] [address] [address] Jack Mendoza M.D. [id number] VACUOLATED GRANULOCYTES Present Normal [facility] Comment on above: Performed By: #### L [id number] ####[facility] [address] [place], [place] [address] Jack Mendoza M.D. [id number] Manual Differential panel (B ld)on 10-20-2024 Basophils (Bld) [#/Vol] 0.03 10*3/uL [facility] Basophils/100 WBC (Bld) 0.9 % [facility] Eosinophils (Bld) [#/Vol] 0.15 10*3/uL [facility] Eosinophils/100 WBC (Bld) 4.3 % [facility] Lymphocytes (Bld) [#/Vol] 0.34 10*3/uL Low [facility] Lymphocytes/100 WBC (Bld) 9.6 % [facility] Monocytes (Bld) [#/Vol] 0.15 10*3/uL Low [facility] Monocytes/100 WBC (Bld) 4.3 % [facility] Neutrophils (Bld) [#/Vol] 2.82 10*3/uL [facility] Neutrophils/100 WBC (Bld) 80.9 % [facility] No Panel Informationon 10-20 Interpretation and review of laboratory results Abnormal [facility] Wound Aerobic CultureOrdered By: Carlos Godwin on 10-20-2024 Bacteria identified Aer cx Nom (Wound) Light Growth Corynebacterium species, not JK Abnormal [facility] Interpretation and review of laboratory results Abnormal [facility] Microscopic observation Gram stain Nom (Wound) Moderate WBC [facility] Microscopic observation Gram stain Nom (Wound) No Organisms Seen [facility] CBC Auto Differentialon 09-23 Erythrocyte distribution width (RBC) [Entitic vol] 16.9 % High 11.6 - 14.8 % [facility] Hematocrit (Bld) [Volume fraction] 35.2 % Low 41.0 - 53.0 % [facility] Hemoglobin (Bld) [Mass/Vol] 10.3 g/dL Low 13.5 - 17.5 g/dL [facility] MCH (RBC) [Entitic mass] 20.3 pg Low 26.0 - 34.0 pg [facility] MCHC (RBC) [Mass/Vol] 29.3 g/dL Low 31.0 - 37.0 g/dL [facility] MCV (RBC) [Entitic vol] 69.3 fL Low 80.0 - 100.0 fL [facility] Nucleated RBC (Bld) [#/Vol] 0 10*3/uL [facility] Nucleated RBC/100 WBC (Bld) [Ratio] 0 % [facility] Platelet mean volume (Bld) [Entitic vol] 9.7 fL 9.4 - 12.4 fL [facility] Platelets (Bld) [#/Vol] 116 10*3/uL Low [facility] RBC (Bld) [#/Vol] 5.08 10*6/uL [facility] WBC (Bld) [#/Vol] 4.02 10*3/uL Low [facility] CBC WITH AUTO DIFFERENTIALon 10-19-2024 AUTO NRBC 0.0 % Normal [facility] Comment on above: Performed By: #### L [id number] #### LAB [address] [place] [address] Jack Mendoza M.D. [id number] AUTO NRBC ABS COUNT 0.00 K/mcL Normal 0.00-0.00 [facility] Comment on above: Performed By: #### L [id number] #### LAB [address] [address] Jack Mendoza M.D. [id number] Erythrocyte distribution width (RBC) [Ratio] 16.9 % High 11.6-14.8 [facility] Comment on above: Performed By: #### L [id number] #### LAB [address] [address] Jack Mendoza M.D. [id number] Hematocrit (Bld) [Volume fraction] 35.2 % Low 41.0-53.0 [facility] Comment on above: Performed By: #### L [id number] #### LAB [address] [address] Jack Mendoza M.D. [id number] Hemoglobin (Bld) [Mass/Vol] 10.3 g/dL Low 13.5-17.5 [facility] Comment on above: Performed By: #### L [id number] #### LAB [address] [place] [address] Jack Mendoza M.D. [id number] MCH (RBC) [Entitic mass] 20.3 pg Low 26.0-34.0 [facility] Comment on above: Performed By: #### L [id number] #### LAB [address] [address] Jack Mendoza M.D. [id number] MCV (RBC) [Entitic vol] 69.3 fL Low 80.0-100.0 [facility] Comment on above: Performed By: #### L [id number] ####[facility] [address] [address] Jack Mendoza M.D. [id number] MEAN CORPUSCULAR HEMOGLOBIN CONC 29.3 g/dL Low 31.0-37.0 [facility] Comment on above: Performed By: #### L [id number] #### LAB [address] [address] Jack Mendoza M.D. [id number] Platelet mean volume (Bld) [Entitic vol] 9.7 fL Normal 9.4-12.4 [facility] Comment on above: Performed By: #### L [id number] #### LAB [address] [address] Jack Mendoza M.D. [id number] Platelets (Bld) [#/Vol] 116 10*3/uL Low 150-400 [facility] Comment on above: Performed By: #### L [id number] #### LAB [address] [address] Jack Mendoza M.D. [id number] RBC (Bld) [#/Vol] 5.08 10*6/uL Normal 4.50-5.90 [facility] Comment on above: Performed By: #### L [id number] #### LAB [address] [place] [address] Jack Mendoza M.D. [id number] WBC (Bld) [#/Vol] 4.02 10*3/uL Low 4.50-11.00 [facility] Comment on above: Performed By: #### L [id number] #### LAB [address] [address] Jack Mendoza M.D. [id number] CBC and Diff Morphologyon Neutrophils.vacuolat ed LM Ql (Bld) Present [facility] Ovalocytes LM Ql (Bld) Many [facility] Platelets LM Ql (Bld) Decreased Abnormal Normal [facility] RBC morphology finding Nom (Bld) See Comment [facility] Comment on above: RBC Indices confirme d with manual peripheral smear review. Schistocytes Auto Ql (Bld) Few Abnormal See Comment [facility] Stomatocytes LM Ql (Bld) Few [facility] Target cells LM Ql (Bld) Many [facility] MANUAL DIFFERENTIALon 2024 BASOPHILS - ABS (DIFF) 0.04 K/mcL Normal 0.00-0.30 [facility] Comment on above: Performed By: #### 4 [id number] #### LAB [address] [address] Jack Mendoza M.D. [id number] BASOPHILS - REL (DIFF) 0.9 % Normal [facility] Comment on above: Performed By: #### 4 5456 #### LAB [address] [address] Jack Mendoza M.D. [id number] EOSINOPHILS - ABS (DIFF) 0.04 K/mcL Normal 0.00-0.50 [facility] Comment on above: Performed By: #### 4 5456 #### LAB [address] [address] Jack Mendoza M.D. [id number] EOSINOPHILS - REL (DIFF) 0.9 % Normal [facility] Comment on above: Performed By: #### 4 5456 #### LAB [address] [address] Jack Mendoza M.D. [id number] LYMPHOCYTES - ABS (DIFF) 0.60 K/mcL Low 0.90-4.00 [facility] Comment on above: Performed By: #### 4 5456 #### LAB [address] [address] Jack Mendoza M.D. [id number] LYMPHOCYTES - REL (DIFF) 14.9 % Normal [facility] Comment on above: Performed By: #### 4 5456 #### LAB [address] [address] Jack Mendoza M.D. [id number] METAMYELOCYTES-REL (DIFF) 0.9 % Normal [facility] Comment on above: Performed By: #### 4 5456 #### LAB [address] [address] Jack Mendoza M.D. [id number] MONOCYTES - ABS (DIFF) 0.21 K/mcL Low 0.30-0.90 [facility] Comment on above: Performed By: #### 4 5456 #### LAB [address] [address] Jack Mendoza M.D. [id number] MONOCYTES - REL (DIFF) 5.2 % Normal [facility] Comment on above: Performed By: #### 4 5456 #### LAB [address] [address] Jack Mendoza M.D. [id number] NEUTROPHILS - ABS (DIFF) 3.14 K/mcL Normal 1.70-7.00 [facility] Comment on above: Performed By: #### 4 5456 #### LAB [address] [address] Jack Mendoza M.D. [id number] NEUTROPHILS - REL (DIFF) 77.2 % [facility] Comment on above: Performed By: #### 4 5456 #### LAB [address] [address] Jack Mendoza M.D. [id number] MORPHOLOGYon 10-19-2024 OVAL SCAN Many Normal [facility] Comment on above: Performed By: #### L [id number] #### LAB [address] [address] Jack Mendoza M.D. [id number] PLATELET ESTIMATE Decreased Abnormal Normal [facility] Comment on above: Performed By: #### L AB295 #### LAB [address] [place], [place] [address] Jack Mendoza M.D. [id number] RBC MORPH SCAN See Comment Normal [facility] Comment on above: Result Comment: RBC Indices confirmed with manual peripheral smear review. Performed By: #### L [id number] ####[facility] [address] [place], [place] [address] Jack Mendoza M.D. [id number] SCHISTO SCAN Few Abnormal See Comment [facility] Comment on above: Performed By: #### L AB295 ####[facility] [address] [place], [place] [address] Jack Mendoza M.D. [id number] STOMATOCYTES Few Normal [facility] Comment on above: Performed By: #### L AB295 ####[facility] [address] [place], [place] [address] Jack Mendoza M.D. [id number] TARGET CELL SCAN Many Normal [facility] Comment on above: Performed By: #### L AB295 ####[facility] [address] [id number] Jack Mendoza M.D. [id number] VACUOLATED GRANULOCYTES Present Normal [facility] Comment on above: Performed By: #### L [id number] ####[facility] [address] [place], [place] [address] Jack Mendoza M.D. [id number] Manual Differential panel (B ld)on 10-19-2024 Basophils (Bld) [#/Vol] 0.04 10*3/uL [facility] Basophils/100 WBC (Bld) 0.9 % [facility] Eosinophils (Bld) [#/Vol] 0.04 10*3/uL [facility] Eosinophils/100 WBC (Bld) 0.9 % [facility] Lymphocytes (Bld) [#/Vol] 0.6 10*3/uL Low [facility] Lymphocytes/100 WBC (Bld) 14.9 % [facility] Metamyelocytes/100 WBC (Bld) 0.9 % [facility] Monocytes (Bld) [#/Vol] 0.21 10*3/uL Low [facility] Monocytes/100 WBC (Bld) 5.2 % [facility] Neutrophils (Bld) [#/Vol] 3.14 10*3/uL [facility] Neutrophils/100 WBC (Bld) 77.2 % [facility] No Panel Informationon 10-19 Interpretation and review of laboratory results Abnormal [facility] CBC Auto Differentialon 09-23 Basophils (Bld) [#/Vol] 0.01 10*3/uL [facility] Basophils/100 WBC (Bld) 0.2 % [facility] Eosinophils (Bld) [#/Vol] 0.02 10*3/uL [facility] Eosinophils/100 WBC (Bld) 0.5 % [facility] Erythrocyte distribution width (RBC) [Entitic vol] 16.5 % High 11.6 - 14.8 % [facility] Hematocrit (Bld) [Volume fraction] 36 % Low 41.0 - 53.0 % [facility] Hemoglobin (Bld) [Mass/Vol] 10.4 g/dL Low 13.5 - 17.5 g/dL [facility] Immature granulocytes (Bld) [#/Vol] 0.02 10*3/uL [facility] Immature granulocytes/100 WBC (Bld) 0.5 % [facility] Comment on above: The IG parameter is the percentage of metamyelocytes, myelocytes and promyelocytes. An immature granulocyte count (IG) of 1% or more suggests the possibility of infection, an IG count of 3% is very likely related to an infection. Interpretation and review of laboratory results Abnormal [facility] Lymphocytes (Bld) [#/Vol] 0.49 10*3/uL Low [facility] Lymphocytes/100 WBC (Bld) 12.1 % [facility] MCH (RBC) [Entitic mass] 20.5 pg Low 26.0 - 34.0 pg [facility] MCHC (RBC) [Mass/Vol] 28.9 g/dL Low 31.0 - 37.0 g/dL [facility] MCV (RBC) [Entitic vol] 70.9 fL Low 80.0 - 100.0 fL [facility] Monocytes (Bld) [#/Vol] 0.3 10*3/uL [facility] Monocytes/100 WBC (Bld) 7.4 % [facility] Neutrophils (Bld) [#/Vol] 3.21 10*3/uL [facility] Neutrophils/100 WBC (Bld) 79.3 % [facility] Nucleated RBC (Bld) [#/Vol] 0 10*3/uL [facility] Nucleated RBC/100 WBC (Bld) [Ratio] 0 % [facility] Platelet mean volume (Bld) [Entitic vol] 10.1 fL 9.4 - 12.4 fL [facility] Platelets (Bld) [#/Vol] 117 10*3/uL Low [facility] RBC (Bld) [#/Vol] 5.08 10*6/uL [facility] WBC (Bld) [#/Vol] 4.05 10*3/uL Low [facility] WITH AUTO DIFFERENTIALon 10-18-2024 AUTO NRBC 0.0 % [facility] Comment on above: Performed By: #### L [id number] #### LAB [address] [place] [address] Jack Mendoza M.D. [id number] AUTO NRBC ABS COUNT 0.00 K/mcL Normal 0.00-0.00 [facility] Comment on above: Performed By: #### L [id number] #### LAB [address] [place] [address] Jack Mendoza M.D. [id number] BASOPHILS ABSOLUTE COUNT 0.01 K/mcL Normal 0.00-0.30 [facility] Comment on above: Performed By: #### L [id number] #### LAB [address] [place] [address] Jack Mendoza M.D. [id number] Basophils/100 WBC (Bld) 0.2 % [facility] Comment on above: Performed By: #### L [id number] #### LAB [address] [place] [address] Jack Mendoza M.D. [id number] Eosinophils (Bld) [#/Vol] 0.02 10*3/uL Normal 0.00-0.50 [facility] Comment on above: Performed By: #### L [id number] #### LAB [address] [place] [address] Jack Mendoza M.D. [id number] Eosinophils/100 WBC (Bld) 0.5 % [facility] Comment on above: Performed By: #### L [id number] #### LAB [address] [address] Jack Mendoza M.D. [id number] Erythrocyte distribution width (RBC) [Ratio] 16.5 % High 11.6-14.8 [facility] Comment on above: Performed By: #### L [id number] #### LAB [address] [address] Jack Mendoza M.D. [id number] Hematocrit (Bld) [Volume fraction] 36.0 % Low 41.0-53.0 [facility] Comment on above: Performed By: #### L [id number] #### LAB [address] [address] Jack Mendoza M.D. [id number] Hemoglobin (Bld) [Mass/Vol] 10.4 g/dL Low 13.5-17.5 [facility] Comment on above: Performed By: #### L [id number] #### LAB [address] [address] Jack Mendoza M.D. [id number] IG ABSOLUTE 0.02 K/mcL Normal 0.00-0.30 [facility] Comment on above: Performed By: #### L [id number] #### LAB [address] [address] Jack Mendoza M.D. [id number] IG PERCENT 0.50 % Normal [facility] Comment on above: Result Comment: The IG parameter is the percentage of metamyelocytes, myelocytes and promyelocytes. An immature granulocyte count (IG) of 1% or more suggests the possibility of infection, an IG count of 3% is very likely related to an infection. Performed By: #### L [id number] #### LAB [address] [place] [address] Jack Mendoza M.D. [id number] Lymphocytes (Bld) [#/Vol] 0.49 10*3/uL Low 0.90-4.00 [facility] Comment on above: Performed By: #### L [id number] #### LAB [address] [address] Jack Mendoza M.D. [id number] Lymphocytes/100 WBC (Bld) 12.1 % Normal [facility] Comment on above: Performed By: #### L [id number] #### LAB [address] [address] Jack Mendoza M.D. [id number] MCH (RBC) [Entitic mass] 20.5 pg Low 26.0-34.0 [facility] Comment on above: Performed By: #### L [id number] #### LAB [address] [address] Jack Mendoza M.D. [id number] MCV (RBC) [Entitic vol] 70.9 fL Low 80.0-100.0 [facility] Comment on above: Performed By: #### L [id number] #### LAB [address] [address] Jack Mendoza M.D. [id number] MEAN CORPUSCULAR HEMOGLOBIN CONC 28.9 g/dL Low 31.0-37.0 [facility] Comment on above: Performed By: #### L [id number] #### LAB [address] [address] Jack Mendoza M.D. [id number] Monocytes (Bld) [#/Vol] 0.30 10*3/uL Normal 0.30-0.90 [facility] Comment on above: Performed By: #### L [id number] #### LAB [address] [address] Jack Mendoza M.D. [id number] Monocytes/100 WBC (Bld) 7.4 % Normal [facility] Comment on above: Performed By: #### L [id number] #### LAB [address] [address] Jack Mendoza M.D. [id number] NEUTROPHILS ABSOLUTE COUNT 3.21 K/mcL Normal 1.70-7.00 [facility] Comment on above: Performed By: #### L [id number] ####[facility] LAB [address] [address] Jack Mendoza M.D. [id number] Neutrophils/100 WBC (Bld) 79.3 % Normal [facility] Comment on above: Performed By: #### L [id number] ####[facility] LAB [address] [address] Jack Mendoza M.D. [id number] Platelet mean volume (Bld) [Entitic vol] 10.1 fL Normal 9.4-12.4 [facility] Comment on above: Performed By: #### L [id number] ####[facility] LAB [address] [address] Jack Mendoza M.D. [id number] Platelets (Bld) [#/Vol] 117 10*3/uL Low 150-400 [facility] Comment on above: Performed By: #### L [id number] ####[facility] LAB [address] [address] Jack Mendoza M.D. [id number] RBC (Bld) [#/Vol] 5.08 10*6/uL Normal 4.50-5.90 [facility] Comment on above: Performed By: #### L [id number] ####[facility] LAB [address] [address] Jack Mendoza M.D. [id number] WBC (Bld) [#/Vol] 4.05 10*3/uL Low 4.50-11.00 [facility] Comment on above: Performed By: #### L [id number] ####[facility] [address] [address] Jack Mendoza M.D. [id number] CRP [Mass/Vol]on 10-18-2024 Interpretation and review of laboratory results Normal [facility] CRP, INFLAMMATIONon 10-18-19 CRP [Mass/Vol] 9.6 mg/L Normal 0.0-10.0 [facility] Comment on above: Performed By: #### 4 [id number] #### LAB [address] [address] Jack Mendoza M.D. [id number] CRP, Inflammationon 10-18-19 CRP [Mass/Vol] 9.6 mg/L 0.0 - 10.0 mg/L [facility] ECG 12 Lead (Now)on 10-18-19 Atrial Rate 92 BPM [facility] P [place] 52 degrees [facility] P-R Interval 144 ms [facility] Q-T Interval 380 ms [facility] QRS Duration 80 ms [facility] QTC Calculation (Bezet) 469 ms [facility] R [place] 47 degrees [facility] T [place] 34 degrees [facility] Ventricular Rate 92 BPM [facility] Normal sinus rhythm Nonspecific ST abnormality Abnormal ECG ECG Cart Interpretation see physician note for interpretation. Confirmed by Whit Pearson ([id number]) on 10/17/2024 3:42:06 PM [facility] US ANKLE/BRACHIAL INDICES EX TREMITY LIMITEDon 10-18-2024 ANKLE/BRACHIAL INDICES EXTREMITY LIMITED Normal [facility] Doppler ankle/brachial in dexon 10-18-2024 Patient Info Name: CARMEN GILMAN Age: 59 years : 1965 Gender: Male Exam Date: 10/17/2024 2:36 PM Patient Status: Inpatient Android Framework Developer: Margy Bradley RVT Referring Physician: QUYEN FRANCO NP; Indications - Leg and foot ulcers R09.89 - Other specified symptoms and signs involving the circulatory and respiratory systems Procedure Description 63364 Limited bilateral noninvasive physiologic studies of upper [...] Date: 10/17/2024 2:36 PM Patient Status: Inpatient Android Framework Developer: Margy Bradley RVT Referring Physician: QUYEN FRANCO LICENSED PLUMBER; Indications - Leg and foot ulcers R09.89 - Other specified symptoms and signs involving the circulatory and respiratory systems Procedure Description [id number] Limited bilateral noninvasive physiologic studies of upper [...] Sb Savage MD on 10/18/2024 09:06 AM [facility] WOUND AEROBIC CULTUREon 09-23 WOUND AEROBIC CULTURE AEROBIC CULTURE CORYNEBACTERIUM SPECIES Light Growth Corynebacterium species, not JK GRAM STAIN RESULT Moderate WBC No Organisms Seen Abnormal [facility] Comment on above: Performed By: #### 4 [id number] ####[facility] [address] [place] [address] Venancio Richardson M.D. [id number] XR Thoracic spine 2 Viewson 10-18-2024 No significant change Workstation ID: [id number] [employer] RIS EXAMINATION: XR THORACIC SPINE 2 VIEWS 10/17/2024 6:10 pm HISTORY: ORDERING SYSTEM PROVIDED HISTORY: Upright XR in TLSO brace, TECHNOLOGIST PROVIDED HISTORY: Illness/Other Reason for exam: Upright XR in TLSO brace Cancer History: u Surgery, RadiationHistory: u Encounter Type: Initial Additional signs and symptoms: . ORDERING SYSTEM PROVIDED DIAGNOSIS CODES: J96.01 Acute respiratory failure with hypoxia ([facility]) J44.1 COPD exacerbation ([facility]) L03.90 Cellulitis, unspecified cellulitis site A41.9 Sepsis, due to unspecified organism, unspecified whether acute organ dysfunction present ([facility]) S22.060A Compression fracture of T7 vertebra, initial encounter ([facility]) M17.11 Osteoarthritis of right knee, unspecified osteoarthritis type I50.31 Acute heart failure with preserved ejection fraction (HFpEF) ([facility]) I50.32 Chronic diastolic congestive heart failure ([facility]) I95.9 Hypotension, unspecified hypotension type E11.9 Type 2 diabetes mellitus without complication, without long-term current use of insulin ([facility]) I48.91 Atrial fibrillation with rapid ventricular response (HCC) E66.01 Morbid obesity with BMI of 40.0-44.9, adult (HCC) Z68.41 Morbid obesity with BMI of 40.0-44.9, adult ([facility]) K74.60 Hepatic cirrhosis, unspecified hepatic cirrhosis type, unspecified whether ascites present ([facility]) J44.1 Acute exacerbation of chronic obstructive pulmonary disease (COPD) ([facility]) COMPARISON: MRI 10/16/2024 FINDINGS: Unchanged alignment of the thoracic spine. Unchanged appearance of a T7 compression fracture. No new fracture is evident. Probable right basilar atelectasis [facility] Yoly Lai MD - 10/18/2024 EXAMINATION: XR THORACIC SPINE 2 VIEWS 10/17/2024 6:10 pm HISTORY: ORDERING SYSTEM PROVIDED HISTORY: Upright XR in TLSO brace, TECHNOLOGIST PROVIDED HISTORY: Illness/Other Reason for exam: Upright XR in TLSO brace Cancer History: u Surgery, RadiationHistory: u Encounter Type: Initial Additional signs and symptoms: . ORDERING SYSTEM PROVIDED DIAGNOSIS CODES: J96.01 Acute respiratory failure with hypoxia ([facility]) J44.1 COPD exacerbation ([facility]) L03.90 Cellulitis, unspecified cellulitis site A41.9 Sepsis, due to unspecified organism, unspecified whether acute organ dysfunction present ([facility]) S22.060A Compression fracture of T7 vertebra, initial encounter ([facility]) M17.11 Osteoarthritis of right knee, unspecified osteoarthritis type I50.31 Acute heart failure with preserved ejection fraction (HFpEF) ([facility]) I50.32 Chronic diastolic congestive heart failure ([facility]) I95.9 Hypotension, unspecified hypotension type E11.9 Type 2 diabetes mellitus without complication, without long-term current use of insulin ([facility]) I48.91 Atrial fibrillation with rapid ventricular response ([facility]) E66.01 Morbid obesity with BMI of 40.0-44.9, adult (HCC) Z68.41 Morbid obesity with BMI of 40.0-44.9, adult ([facility]) K74.60 Hepatic cirrhosis, unspecified hepatic cirrhosis type, unspecified whether ascites present ([facility]) J44.1 Acute exacerbation of chronic obstructive pulmonary disease (COPD) ([facility]) COMPARISON: MRI 10/16/2024 FINDINGS: Unchanged alignment of the thoracic spine. Unchanged appearance of a T7 compression fracture. No new fracture is evident. Probable right basilar atelectasis IMPRESSION: No significant change Workstation ID: [id number] [facility] XR Thoracic spine 2 ViewsOrd ered By: Yoly Lai on 10-18-2024 [facility] Work Phone: CBC Auto Differentialon 09-23 Basophils (Bld) [#/Vol] 0.01 10*3/uL [facility] Basophils/100 WBC (Bld) 0.2 % [facility] Eosinophils (Bld) [#/Vol] 0.01 10*3/uL [facility] Eosinophils/100 WBC (Bld) 0.2 % [facility] Erythrocyte distribution width (RBC) [Entitic vol] 16.6 % High 11.6 - 14.8 % [facility] Hematocrit (Bld) [Volume fraction] 32.7 % Low 41.0 - 53.0 % [facility] Hemoglobin (Bld) [Mass/Vol] 9.7 g/dL Low 13.5 - 17.5 g/dL [facility] Immature granulocytes (Bld) [#/Vol] 0.02 10*3/uL [facility] Immature granulocytes/100 WBC (Bld) 0.5 % [facility] Comment on above: The IG parameter is the percentage of metamyelocytes, myelocytes and promyelocytes. An immature granulocyte count (IG) of 1% or more suggests the possibility of infection, an IG count of 3% is very likely related to an infection. Interpretation and review of laboratory results Abnormal [facility] Lymphocytes (Bld) [#/Vol] 0.54 10*3/uL Low [facility] Lymphocytes/100 WBC (Bld) 12.5 % [facility] MCH (RBC) [Entitic mass] 20.9 pg Low 26.0 - 34.0 pg [facility] MCHC (RBC) [Mass/Vol] 29.7 g/dL Low 31.0 - 37.0 g/dL [facility] MCV (RBC) [Entitic vol] 70.3 fL Low 80.0 - 100.0 fL [facility] Monocytes (Bld) [#/Vol] 0.3 10*3/uL [facility] Monocytes/100 WBC (Bld) 7 % [facility] Neutrophils (Bld) [#/Vol] 3.43 10*3/uL [facility] Neutrophils/100 WBC (Bld) 79.6 % [facility] Nucleated RBC (Bld) [#/Vol] 0 10*3/uL [facility] Nucleated RBC/100 WBC (Bld) [Ratio] 0 % [facility] Platelet mean volume (Bld) [Entitic vol] 9.7 fL 9.4 - 12.4 fL [facility] Platelets (Bld) [#/Vol] 111 10*3/uL Low [facility] RBC (Bld) [#/Vol] 4.65 10*6/uL [facility] WBC (Bld) [#/Vol] 4.31 10*3/uL Low [facility] CBC WITH AUTO DIFFERENTIALon 10-17-2024 AUTO NRBC 0.0 % [facility] Comment on above: Performed By: #### L [id number] #### LAB [address] [place] [address] Jack Mendoza M.D. [id number] AUTO NRBC ABS COUNT 0.00 K/mcL Normal 0.00-0.00 [facility] Comment on above: Performed By: #### L [id number] #### LAB [address] [address] Jack Mendoza M.D. [id number] BASOPHILS ABSOLUTE COUNT 0.01 K/mcL Normal 0.00-0.30 [facility] Comment on above: Performed By: #### L [id number] #### LAB [address] [place] [address] Jack Mendoza M.D. [id number] Basophils/100 WBC (Bld) 0.2 % [facility] Comment on above: Performed By: #### L [id number] #### LAB [address] [place] [address] Jack Mendoza M.D. [id number] Eosinophils (Bld) [#/Vol] 0.01 10*3/uL Normal 0.00-0.50 [facility] Comment on above: Performed By: #### L [id number] #### LAB [address] [place] [address] Jack Mendoza M.D. [id number] Eosinophils/100 WBC (Bld) 0.2 % Normal [facility] Comment on above: Performed By: #### L [id number] #### LAB [address] [address] Jack Mendoza M.D. [id number] Erythrocyte distribution width (RBC) [Ratio] 16.6 % High 11.6-14.8 [facility] Comment on above: Performed By: #### L [id number] #### LAB [address] [address] Jack Mendoza M.D. [id number] Hematocrit (Bld) [Volume fraction] 32.7 % Low 41.0-53.0 [facility] Comment on above: Performed By: #### L [id number] #### LAB [address] [address] Jack Mendoza M.D. [id number] Hemoglobin (Bld) [Mass/Vol] 9.7 g/dL Low 13.5-17.5 [facility] Comment on above: Performed By: #### L [id number] #### LAB [address] [place] [address] Jack Mendoza M.D. [id number] IG ABSOLUTE 0.02 K/mcL Normal 0.00-0.30 [facility] Comment on above: Performed By: #### L [id number] #### LAB [address] [place] [address] Jack Mendoza M.D. [id number] IG PERCENT 0.50 % Normal [facility] Comment on above: Result Comment: The IG parameter is the percentage of metamyelocytes, myelocytes and promyelocytes. An immature granulocyte count (IG) of 1% or more suggests the possibility of infection, an IG count of 3% is very likely related to an infection. Performed By: #### L [id number] #### LAB [address] [place] [address] Jack Mendoza M.D. [id number] Lymphocytes (Bld) [#/Vol] 0.54 10*3/uL Low 0.90-4.00 [facility] Comment on above: Performed By: #### L [id number] #### LAB [address] [address] Jack Mendoza M.D. [id number] Lymphocytes/100 WBC (Bld) 12.5 % Normal [facility] Comment on above: Performed By: #### L [id number] #### LAB [address] [address] Jack Mendoza M.D. [id number] MCH (RBC) [Entitic mass] 20.9 pg Low 26.0-34.0 [facility] Comment on above: Performed By: #### L [id number] #### LAB [address] [address] Jack Mendoza M.D. [id number] MCV (RBC) [Entitic vol] 70.3 fL Low 80.0-100.0 [facility] Comment on above: Performed By: #### L [id number] #### LAB [address] [address] Jack Mendoza M.D. [id number] MEAN CORPUSCULAR HEMOGLOBIN CONC 29.7 g/dL Low 31.0-37.0 [facility] Comment on above: Performed By: #### L [id number] #### LAB [address] [address] Jack Mendoza M.D. [id number] Monocytes (Bld) [#/Vol] 0.30 10*3/uL Normal 0.30-0.90 [facility] Comment on above: Performed By: #### L [id number] #### LAB [address] [address] Jack Mendoza M.D. [id number] Monocytes/100 WBC (Bld) 7.0 % Normal [facility] Comment on above: Performed By: #### L [id number] #### LAB [address] [address] Jack Mendoza M.D. [id number] NEUTROPHILS ABSOLUTE COUNT 3.43 K/mcL Normal 1.70-7.00 [facility] Comment on above: Performed By: #### L [id number] #### LAB [address] [place], [place] [address] Jack Mendoza M.D. [id number] Neutrophils/100 WBC (Bld) 79.6 % Normal [facility] Comment on above: Performed By: #### L [id number] ####[facility] [address] [address] Jack Mendoza M.D. [id number] Platelet mean volume (Bld) [Entitic vol] 9.7 fL Normal 9.4-12.4 [facility] Comment on above: Performed By: #### L [id number] ####[facility] [address] [address] Jack Mendoza M.D. [id number] Platelets (Bld) [#/Vol] 111 10*3/uL Low 150-400 [facility] Comment on above: Performed By: #### L [id number] ####[facility] [address] [address] Jack Mendoza M.D. [id number] RBC (Bld) [#/Vol] 4.65 10*6/uL Normal 4.50-5.90 [facility] Comment on above: Performed By: #### L [id number] ####[facility] [address] [address] Jack Mendoza M.D. [id number] WBC (Bld) [#/Vol] 4.31 10*3/uL Low 4.50-11.00 [facility] Comment on above: Performed By: #### L [id number] ####[facility] [address] [address] Jack Mendoza M.D. [id number] CONSULTon 10-17-2024 CONSULT Normal [facility] ESR Westergren method (Bld) [Velocity]on 10-17-2024 ESR (Bld) [Velocity] 49 mm/h [facility] Interpretation and review of laboratory results Abnormal [facility] HEMOGLOBIN A1Con 10-17-2024 Glucose [Mass/Vol] 131 mg/dL High 74-114 [facility] Comment on above: Performed By: #### 4 8202 ####[facility] [address] [place], [place] [address] Jack Mendoza M.D. [id number] HbA1c (Bld) [Mass fraction] 6.2 % High 4.2-5.6 [facility] Comment on above: Performed By: #### 4 8202 #### LAB [address] [place], [place] [address] Jack Mendoza M.D. [id number] HbA1c (Bld) [Mass fraction]o n 10-17-2024 Average glucose Estimated from glycated hemoglobin (Bld) [Mass/Vol] 131 mg/dL High 74 - 114 mg/dL [facility] Interpretation and review of laboratory results Abnormal [facility] Hemoglobin A1con 10-17-2024 HbA1c (Bld) [Mass fraction] 6.2 % High 4.2 - 5.6 % [facility] MR FOOT RIGHT WITHOUT CONTRA STon 10-17-2024 MR FOOT RIGHT WITHOUT CONTRAST Normal [facility] Comment on above: Order Comment: Injur y/Trauma [...] and degenerative arthropathy. PD/ads Workstation ID: [id number] [employer] [facility] MR FOOT RIGHT WITHOUT CONTRAST HISTORY: [...] failure with hypoxia (HCC) J44.1 COPD exacerbation ([facility]) L03.90 Cellulitis, unspecified cellulitis site A41.9 Sepsis, due to unspecified organism, unspecified whether acute organ dysfunction present ([facility]) S22.060A Compression fracture of T7 vertebra, initial encounter ([facility]) COMPARISON: None. TECHNIQUE: Multiplanar, multisequence [...] over the dorsum of the foot seen. [facility] Fortino Marina MD - 10/17/2024 EXAMINATION: [...] failure with hypoxia (HCC) J44.1 COPD exacerbation ([facility]) L03.90 Cellulitis, unspecified cellulitis site A41.9 Sepsis, due to unspecified organism, unspecified whether acute organ dysfunction present ([facility]) S22.060A Compression fracture of T7 vertebra, initial encounter ([facility]) COMPARISON: None. TECHNIQUE: Multiplanar, multisequence [...] and degenerative arthropathy. PD/ads Workstation ID: [id number] [facility] Radiology Study observation (narrative) [facility] MR Foot - right WO contrastO rdered By: Fortino Marina on 10-17-2024 [facility] Work Phone: SEDIMENTATION RATEon 025 SEDIMENTATION RATE, ERYTHROCYTE 49 mm/hr High 0-20 [facility] Comment on above: Performed By: #### 4 6477 ####[facility] [address] [place] [address] Jack Mendoza M.D. [id number] XR THORACIC SPINE 2 VIEWSon 10-17-2024 XR THORACIC SPINE 2 VIEWS Normal [facility] Comment on above: Order Comment: Injur y/Trauma or Illness?:Illness/OtherHow long have you had these symptoms (acute/chronic)?:AcuteReason for exam?:Upright XR in TLSO braceHistory of cancer?:uSurgeries, chemotherapy, or radiation?:uType of Exam?:InitialAdditional signs and symptoms?:. XR Thoracic spine 2 Viewson 10-17-2024 Radiology Study observation (narrative) [facility] BASIC METABOLIC PANELon 09-23 Anion gap [Moles/Vol] 14 mmol/L Normal 10-20 [facility] Comment on above: Order Comment: [facility] has implemented the eGFR calculation approach that does not have a coefficient for race that conforms to the NKF-ASN Task Force Recommendations. Performed By: #### 4 6124 #### LAB [address] [id number] Jack Mendoza M.D. [id number] Calcium [Mass/Vol] 8.7 mg/dL Normal 8.4-10.2 [facility] Comment on above: Order Comment: [facility] has implemented the eGFR calculation approach that does not have a coefficient for race that conforms to the NKF-ASN Task Force Recommendations. Performed By: #### 4 6124 #### LAB [address] [id number] Jack Mendoza M.D. [id number] Chloride [Moles/Vol] 97 mmol/L Low 98-108 [facility] Comment on above: Order Comment: [facility] has implemented the eGFR calculation approach that does not have a coefficient for race that conforms to the NKF-ASN Task Force Recommendations. Performed By: #### 4 6124 #### LAB [address] [id number] Jack Mendoza M.D. [id number] Creatinine [Mass/Vol] 0.66 mg/dL Normal 0.50-1.30 [facility] Comment on above: Order Comment: [facility] has implemented the eGFR calculation approach that does not have a coefficient for race that conforms to the NKF-ASN Task Force Recommendations. Performed By: #### 4 6124 #### LAB [address] [id number] Jack Mendoza M.D. [id number] EGFR 109 mL/min/1.73 m2 Normal >=60 [facility] Comment on above: Order Comment: [facility] has implemented the eGFR calculation approach that does not have a coefficient for race that conforms to the NKF-ASN Task Force Recommendations. Result Comment: Ashley mated GFR was calculated using the 2020 CKD-EPI creatinine equation. Performed By: #### 4 6124 #### LAB [address] [address] Jack Mendoza M.D. [id number] Glucose [Mass/Vol] 156 mg/dL High 65-99 [facility] Comment on above: Order Comment: [facility] has implemented the eGFR calculation approach that does not have a coefficient for race that conforms to the NKF-ASN Task Force Recommendations. Performed By: #### 4 6124 ####[facility] LAB [address] [address] Jack Mendoza M.D. [id number] HCO3 (Bld) [Moles/Vol] 30 mmol/L Normal 21-32 [facility] Comment on above: Order Comment: [facility] has implemented the eGFR calculation approach that does not have a coefficient for race that conforms to the NKF-ASN Task Force Recommendations. Performed By: #### 4 6124 #### LAB [address] [address] Jack Mendoza M.D. [id number] Potassium [Moles/Vol] 4.4 mmol/L Normal 3.5-5.1 [facility] Comment on above: Order Comment: [facility] has implemented the eGFR calculation approach that does not have a coefficient for race that conforms to the NKF-ASN Task Force Recommendations. Performed By: #### 4 6124 ####[facility] LAB [address] [address] Jack Mendoza M.D. [id number] Sodium [Moles/Vol] 137 mmol/L Normal 135-145 [facility] Comment on above: Order Comment: [facility] has implemented the eGFR calculation approach that does not have a coefficient for race that conforms to the NKF-ASN Task Force Recommendations. Performed By: #### 4 6124 ####[facility] LAB [address] [address] Jack Mendoza M.D. [id number] Urea nitrogen [Mass/Vol] 18 mg/dL Normal 8-25 [facility] Comment on above: Order Comment: [facility] has implemented the eGFR calculation approach that does not have a coefficient for race that conforms to the NKF-ASN Task Force Recommendations. Performed By: #### 4 6124 #### LAB [address] [place], [place] [address] Jack Mendoza M.D. [id number] Urea nitrogen/Creatinine [Mass ratio] 27.3 mg/mg High 10.0-20.0 [facility] Comment on above: Order Comment: [facility] has implemented the eGFR calculation approach that does not have a coefficient for race that conforms to the NKF-ASN Task Force Recommendations. Performed By: #### 4 6124 #### LAB [address] [place], [place] [address] Jack Mendoza M.D. [id number] Basic metabolic 2000 panelon 10-16-2024 Anion gap [Moles/Vol] 14 mmol/L 10 - 20 mmol/L [facility] Calcium [Mass/Vol] 8.7 mg/dL 8.4 - 10. 2 mg/dL [facility] Chloride [Moles/Vol] 97 mmol/L Low 98 - 10 8 mmol/L [facility] Creatinine [Mass/Vol] 0.66 mg/dL 0.50 - 1.30 mg/dL [facility] GFR/1.73 sq M.predicted CKD-EPI (S/P/Bld) [Vol rate/Area] 109 - PINF [facility] Comment on above: Estimated GFR was ca lculated using the 2020 CKD-EPI creatinine equation. Glucose [Mass/Vol] 156 mg/dL High 65 - 99 mg/dL [facility] HCO3 [Moles/Vol] 30 mmol/L 21 - 32 mmol/L [facility] Interpretation and review of laboratory results Abnormal [facility] Potassium [Moles/Vol] 4.4 mmol/L 3.5 - 5.1 mmol/L [facility] Sodium [Moles/Vol] 137 mmol/L 135 - 145 mmol/L [facility] Urea nitrogen [Mass/Vol] 18 mg/dL 8 - 25 mg/dL [facility] Urea nitrogen/Creatinine [Mass ratio] 27.3 mg/mg High 10.0 - 20.0 [facility] has implemented the eGFR calculation approach that does not have a coefficient for race that conforms to the NKF-ASN Task Force Recommendations. [facility] CBCon 10-16-2024 AUTO NRBC 0.0 % Normal [facility] Comment on above: Performed By: #### 4 [id number] #### LAB [address] [address] Jack Mendoza M.D. [id number] AUTO NRBC ABS COUNT 0.00 K/mcL Normal 0.00-0.00 [facility] Comment on above: Performed By: #### 4 5218 ####[facility] LAB [address] [address] Jack Mendoza M.D. [id number] Erythrocyte distribution width (RBC) [Ratio] 17.1 % High 11.6-14.8 [facility] Comment on above: Performed By: #### 4 5218 #### LAB [address] [address] Jack Mendoza M.D. [id number] Hematocrit (Bld) [Volume fraction] 36.6 % Low 41.0-53.0 [facility] Comment on above: Performed By: #### 4 5218 #### LAB [address] [address] Jack Mendoza M.D. [id number] Hemoglobin (Bld) [Mass/Vol] 10.6 g/dL Low 13.5-17.5 [facility] Comment on above: Performed By: #### 4 5218 #### LAB [address] [address] Jack Mendoza M.D. [id number] MCH (RBC) [Entitic mass] 20.2 pg Low 26.0-34.0 [facility] Comment on above: Performed By: #### 4 5218 #### LAB [address] [address] Jack Mendoza M.D. [id number] MCV (RBC) [Entitic vol] 69.8 fL Low 80.0-100.0 [facility] Comment on above: Performed By: #### 4 5218 ####[facility] LAB [address] [place], [place] [address] Jack Mendoza M.D. [id number] MEAN CORPUSCULAR HEMOGLOBIN CONC 29.0 g/dL Low 31.0-37.0 [facility] Comment on above: Performed By: #### 4 5218 #### LAB [address] [address] Jack Mendoza M.D. [id number] Platelet mean volume (Bld) [Entitic vol] 10.2 fL Normal 9.4-12.4 [facility] Comment on above: Performed By: #### 4 5218 #### LAB [address] [id number] Jack Mendoza M.D. [id number] Platelets (Bld) [#/Vol] 116 10*3/uL Low 150-400 [facility] Comment on above: Performed By: #### 4 5218 #### LAB [address] [address] Jack Mendoza M.D. [id number] RBC (Bld) [#/Vol] 5.24 10*6/uL Normal 4.50-5.90 [facility] Comment on above: Performed By: #### 4 5218 #### LAB [address] [address] Jack Mendoza M.D. [id number] WBC (Bld) [#/Vol] 3.77 10*3/uL Low 4.50-11.00 [facility] Comment on above: Performed By: #### 4 5218 #### LAB [address] [address] Jack Mendoza M.D. [id number] CBC panel Auto (Bld)on 10-16 Erythrocyte distribution width (RBC) [Entitic vol] 17.1 % High 11.6 - 14.8 % [facility] Hematocrit (Bld) [Volume fraction] 36.6 % Low 41.0 - 53.0 % [facility] Hemoglobin (Bld) [Mass/Vol] 10.6 g/dL Low 13.5 - 17.5 g/dL [facility] Interpretation and review of laboratory results Abnormal [facility] MCH (RBC) [Entitic mass] 20.2 pg Low 26.0 - 34.0 pg [facility] MCHC (RBC) [Mass/Vol] 29 g/dL Low 31.0 - 37.0 g/dL [facility] MCV (RBC) [Entitic vol] 69.8 fL Low 80.0 - 100.0 fL [facility] Nucleated RBC (Bld) [#/Vol] 0 10*3/uL [facility] Nucleated RBC/100 WBC (Bld) [Ratio] 0 % [facility] Platelet mean volume (Bld) [Entitic vol] 10.2 fL 9.4 - 12.4 fL [facility] Platelets (Bld) [#/Vol] 116 10*3/uL Low [facility] RBC (Bld) [#/Vol] 5.24 10*6/uL [facility] WBC (Bld) [#/Vol] 3.77 10*3/uL Low [facility] CONSULTon 10-16-2024 CONSULT Normal [facility] CT Thoracic and lumbar spine WO contraston [...] in the remaining thoracic and lumbar spine. coRank/BigDoorr Workstation ID: [id number] [facility] EXAMINATION: CT THORACIC AND LUMBAR SPINE RECONSTRUCTED HISTORY: ORDERING SYSTEM PROVIDED HISTORY: fall; upper and lower back pain, TECHNOLOGIST PROVIDED HISTORY: Injury/Trauma Reason for exam: upper and lower back pain, fall Encounter Type: Initial Mechanism of injury: fall ORDERING SYSTEM PROVIDED DIAGNOSIS CODES: J96.01 Acute respiratory failure with hypoxia ([facility]) J44.1 COPD exacerbation ([facility]) L03.90 Cellulitis, unspecified cellulitis site A41.9 Sepsis, due to unspecified organism, unspecified whether acute organ dysfunction present ([facility]) COMPARISON: CT pulmonary arteries 07/02/2024. [...] spine: Straightening of the lumbar spine. Stable whrdpvuu-zc-slsewl anterior wedging of L2. Stable mild anterior wedging of L1. No new compression deformities. No subluxation scattered ehmx-cx-ohmmspso disc space narrowing. No central spinal canal poorly visualized secondary to intrinsic constraints of CT imaging. No high-grade spinal canal stenosis suspected. Please refer to dedicated imaging for details on the chest, abdomen, and pelvis. [facility] Jonathan Rodrigez MD - 09/23 EXAMINATION: CT THORACIC AND LUMBAR SPINE RECONSTRUCTED HISTORY: ORDERING SYSTEM PROVIDED HISTORY: fall; upper and lower back pain, TECHNOLOGIST PROVIDED HISTORY: Injury/Trauma Reason for exam: upper and lower back pain, fall Encounter Type: Initial Mechanism of injury: fall ORDERING SYSTEM PROVIDED DIAGNOSIS CODES: J96.01 Acute respiratory failure with hypoxia ([facility]) J44.1 COPD exacerbation ([facility]) L03.90 Cellulitis, unspecified cellulitis site A41.9 Sepsis, due to unspecified organism, unspecified whether acute organ dysfunction present ([facility]) COMPARISON: CT pulmonary arteries 07/02/2024. [...] spine: Straightening of the lumbar spine. Stable htrexddx-ou-exameh anterior wedging of L2. Stable mild anterior wedging of L1. No new compression deformities. No subluxation scattered uexy-rh-gtwtnufo disc space narrowing. No central spinal canal [...] and lumbar spine. MATEUS/mjr Workstation ID: [id number] [facility] CT Thoracic and lumbar spine WO contrastOrdered By: Jonathan Rodrigez on 10-16-2024 [facility] Work Phone: H AND Mike 10-16-2024 H AND P Normal [facility] MR THORACIC SPINE WITHOUT CO NTRASTon 10-16-2024 MR THORACIC SPINE WITHOUT CONTRAST Normal [facility] Comment on above: Order Comment: Injur y/Trauma [...] thoracic spinal cord. DMG/alt Workstation ID: [id number] [employer] EXAMINATION: MR THORACIC SPINE WITHOUT CONTRAST HISTORY: [...] organism, unspecified whether acute organ dysfunction present ([facility]) S22.060A Compression fracture of T7 vertebra, initial encounter ([facility]) COMPARISON: CT chest, abdomen and [...] abnormal signal in the thoracic spinal cord. [facility] Enrique Carrasco MD - 10/16/2024 EXAMINATION: MR [...] organism, unspecified whether acute organ dysfunction present ([facility]) S22.060A Compression fracture of T7 vertebra, initial encounter ([facility]) COMPARISON: CT chest, abdomen and [...] thoracic spinal cord. DMG/alt Workstation ID: [id number] [facility] Radiology Study observation (narrative) [facility] MR Thoracic spine WO contras tOrdered By: Enrique Carrasco on 10-16-2024 [facility] Work Phone: Vitamin D, Total, 25-OHon 25-hydroxyvitamin D [Mass/Vol] 11 ng/mL Low 20 - 100 ng/mL [facility] Interpretation and review of laboratory results Abnormal [facility] Vitamin D Expected V alues Deficiency: 0-10 Insufficiency: 10-20 Sufficient: 20-100 Toxicity: >100 [facility] BLOOD CULTURE AEROBIC/ANAERO BICon 10-15-2024 BLOOD CULTURE AEROBIC/ANAEROBIC BLOOD CULTURE No Growth after 5 days Normal [facility] Comment on above: Performed By: #### 4 1183 ####MH [facility] [address] [place], [place] [address] Jack Mendoza M.D. [id number] BLOOD CULTURE AEROBIC/ANAEROBIC BLOOD CULTURE No Growth after 5 days Normal [facility] Comment on above: Performed By: #### 4 9444 ####[facility] LAB [address] [place], [place] [address] Jack Mendoza M.D. [id number] CBC Auto Differentialon 09-23 Basophils (Bld) [#/Vol] 0.02 10*3/uL [facility] Basophils/100 WBC (Bld) 0.4 % [facility] Eosinophils (Bld) [#/Vol] 0.03 10*3/uL [facility] Eosin[facility]/100 WBC (Bld) 0.6 % [facility] Erythrocyte distribution width (RBC) [Entitic vol] 16.8 % High 11.6 - 14.8 % [facility] Hematocrit (Bld) [Volume fraction] 36.9 % Low 41.0 - 53.0 % [facility] Hemoglobin (Bld) [Mass/Vol] 10.9 g/dL Low 13.5 - 17.5 g/dL [facility] Immature granulocytes (Bld) [#/Vol] 0.01 10*3/uL [facility] Immature granulocytes/100 WBC (Bld) 0.2 % [facility] Comment on above: The IG parameter is the percentage of metamyelocytes, myelocytes and promyelocytes. An immature granulocyte count (IG) of 1% or more suggests the possibility of infection, an IG count of 3% is very likely related to an infection. Lymphocytes (Bld) [#/Vol] 0.39 10*3/uL Low [facility] Lymphocytes/100 WBC (Bld) 7.8 % [facility] MCH (RBC) [Entitic mass] 20.8 pg Low 26.0 - 34.0 pg [facility] MCHC (RBC) [Mass/Vol] 29.5 g/dL Low 31.0 - 37.0 g/dL [facility] MCV (RBC) [Entitic vol] 70.6 fL Low 80.0 - 100.0 fL [facility] Monocytes (Bld) [#/Vol] 0.35 10*3/uL [facility] Monocytes/100 WBC (Bld) 7 % [facility] Neutrophils (Bld) [#/Vol] 4.18 10*3/uL [facility] Neutrophils/100 WBC (Bld) 84 % [facility] Comment on above: Peripheral smear rev iewed manually Nucleated RBC (Bld) [#/Vol] 0 10*3/uL [facility] Nucleated RBC/100 WBC (Bld) [Ratio] 0 % [facility] Platelet mean volume (Bld) [Entitic vol] 9.1 fL Low 9.4 - 12.4 fL [facility] Platelets (Bld) [#/Vol] 121 10*3/uL Low [facility] RBC (Bld) [#/Vol] 5.23 10*6/uL [facility] WBC (Bld) [#/Vol] 4.98 10*3/uL [facility] CBC WITH AUTO DIFFERENTIALon 10-15-2024 AUTO NRBC 0.0 % [facility] Comment on above: Performed By: #### L [id number] #### LAB [address] [place] [address] Jack Mendoza M.D. [id number] AUTO NRBC ABS COUNT 0.00 K/mcL Normal 0.00-0.00 [facility] Comment on above: Performed By: #### L [id number] #### LAB [address] [place] [address] Jack Mendoza M.D. [id number] BASOPHILS ABSOLUTE COUNT 0.02 K/mcL Normal 0.00-0.30 [facility] Comment on above: Performed By: #### L [id number] #### LAB [address] [place] [address] Jack Mendoza M.D. [id number] Basophils/100 WBC (Bld) 0.4 % [facility] Comment on above: Performed By: #### L [id number] #### LAB [address] [place] [address] Jack Mendoza M.D. [id number] Eosinophils (Bld) [#/Vol] 0.03 10*3/uL Normal 0.00-0.50 [facility] Comment on above: Performed By: #### L [id number] #### LAB [address] [place] [address] Jack Mendoza M.D. [id number] Eosinophils/100 WBC (Bld) 0.6 % [facility] Comment on above: Performed By: #### L [id number] #### LAB [address] [address] Jack Mendoza M.D. [id number] Erythrocyte distribution width (RBC) [Ratio] 16.8 % High 11.6-14.8 [facility] Comment on above: Performed By: #### L [id number] #### LAB [address] [address] Jack Mendoza M.D. [id number] Hematocrit (Bld) [Volume fraction] 36.9 % Low 41.0-53.0 [facility] Comment on above: Performed By: #### L [id number] #### LAB [address] [address] Jack Mendoza M.D. [id number] Hemoglobin (Bld) [Mass/Vol] 10.9 g/dL Low 13.5-17.5 [facility] Comment on above: Performed By: #### L [id number] #### LAB [address] [address] Jack Mendoza M.D. [id number] IG ABSOLUTE 0.01 K/mcL Normal 0.00-0.30 [facility] Comment on above: Performed By: #### L [id number] #### LAB [address] [address] Jack Mendoza M.D. [id number] IG PERCENT 0.20 % Normal [facility] Comment on above: Result Comment: The IG parameter is the percentage of metamyelocytes, myelocytes and promyelocytes. An immature granulocyte count (IG) of 1% or more suggests the possibility of infection, an IG count of 3% is very likely related to an infection. Performed By: #### L [id number] #### LAB [address] [place] [address] Jack Mendoza M.D. [id number] Lymphocytes (Bld) [#/Vol] 0.39 10*3/uL Low 0.90-4.00 [facility] Comment on above: Performed By: #### L [id number] #### LAB [address] [place] [address] Jack Mendoza M.D. [id number] Lymphocytes/100 WBC (Bld) 7.8 % Normal [facility] Comment on above: Performed By: #### L [id number] #### LAB [address] [address] Jack Mendoza M.D. [id number] MCH (RBC) [Entitic mass] 20.8 pg Low 26.0-34.0 [facility] Comment on above: Performed By: #### L [id number] ####[facility] LAB [address] [address] Jack Mendoza M.D. [id number] MCV (RBC) [Entitic vol] 70.6 fL Low 80.0-100.0 [facility] Comment on above: Performed By: #### L [id number] #### LAB [address] [address] Jack Mendoza M.D. [id number] MEAN CORPUSCULAR HEMOGLOBIN CONC 29.5 g/dL Low 31.0-37.0 [facility] Comment on above: Performed By: #### L [id number] #### LAB [address] [address] Jack Mendoza M.D. [id number] Monocytes (Bld) [#/Vol] 0.35 10*3/uL Normal 0.30-0.90 [facility] Comment on above: Performed By: #### L [id number] #### LAB [address] [address] Jack Mendoza M.D. [id number] Monocytes/100 WBC (Bld) 7.0 % Normal [facility] Comment on above: Performed By: #### L [id number] ####[facility] LAB [address] [address] Jack Mendoza M.D. [id number] NEUTROPHILS ABSOLUTE COUNT 4.18 K/mcL Normal 1.70-7.00 [facility] Comment on above: Performed By: #### L [id number] #### LAB [address] [address] Jack Mendoza M.D. [id number] Neutrophils/100 WBC (Bld) 84.0 % Normal [facility] Comment on above: Result Comment: Tiffany pheral smear reviewed manually Performed By: #### L [id number] #### LAB [address] [address] Jack Mendoza M.D. [id number] Platelet mean volume (Bld) [Entitic vol] 9.1 fL Low 9.4-12.4 [facility] Comment on above: Performed By: #### L [id number] #### LAB [address] [address] Jack Mendoza M.D. [id number] Platelets (Bld) [#/Vol] 121 10*3/uL Low 150-400 [facility] Comment on above: Performed By: #### L [id number] #### LAB [address] [address] Jack Mendoza M.D. [id number] RBC (Bld) [#/Vol] 5.23 10*6/uL Normal 4.50-5.90 [facility] Comment on above: Performed By: #### L [id number] #### LAB [address] [address] Jack Mendoza M.D. [id number] WBC (Bld) [#/Vol] 4.98 10*3/uL Normal 4.50-11.00 [facility] Comment on above: Performed By: #### L [id number] #### LAB [address] [address] Jack Mendoza M.D. [id number] CBC and Diff Morphologyon Dacrocytes LM Ql (Bld) Few [facility] Ovalocytes LM Ql (Bld) Moderate [facility] Platelets LM Ql (Bld) Decreased Abnormal Normal [facility] Polychromasia LM Ql (Bld) Few [facility] RBC morphology finding Nom (Bld) See Comment [facility] Comment on above: RBC Indices confirme d with manual peripheral smear review. Stomatocytes LM Ql (Bld) Few [facility] Target cells LM Ql (Bld) Few [facility] COMPREHENSIVE METABOLIC PANE Ras 10-15-2024 Albumin [Mass/Vol] 3.5 g/dL Normal 3.2-5.2 [facility] Comment on above: Order Comment: [facility] has implemented the eGFR calculation approach that does not have a coefficient for race that conforms to the NKF-ASN Task Force Recommendations. Performed By: #### 4 6168 #### LAB [address] [address] Jack Mendoza M.D. [id number] ALP [Catalytic activity/Vol] 89 U/L Normal 40-150 [facility] Comment on above: Order Comment: [facility] has implemented the eGFR calculation approach that does not have a coefficient for race that conforms to the NKF-ASN Task Force Recommendations. Performed By: #### 4 6126 #### LAB [address] [address] Jack Mendoza M.D. [id number] ALT [Catalytic activity/Vol] 15 U/L [facility] Comment on above: Order Comment: [facility] has implemented the eGFR calculation approach that does not have a coefficient for race that conforms to the NKF-ASN Task Force Recommendations. Performed By: #### 4 6101 #### LAB [address] [address] Jack Mendoza M.D. [id number] Anion gap [Moles/Vol] 14 mmol/L Normal 10-20 [facility] Comment on above: Order Comment: [facility] has implemented the eGFR calculation approach that does not have a coefficient for race that conforms to the NKF-ASN Task Force Recommendations. Performed By: #### 4 6169 #### LAB [address] [address] Jack Mendoza M.D. [id number] AST [Catalytic activity/Vol] 28 U/L [facility] Comment on above: Order Comment: [facility] has implemented the eGFR calculation approach that does not have a coefficient for race that conforms to the NKF-ASN Task Force Recommendations. Performed By: #### 4 6126 #### LAB [address] [address] Jack Mendoza M.D. [id number] Bilirubin [Mass/Vol] 0.7 mg/dL Normal 0.0-1.3 [facility] Comment on above: Order Comment: [facility] has implemented the eGFR calculation approach that does not have a coefficient for race that conforms to the NKF-ASN Task Force Recommendations. Performed By: #### 4 6126 #### LAB [address] [address] Jack Mendoza M.D. [id number] Calcium [Mass/Vol] 8.8 mg/dL Normal 8.4-10.2 [facility] Comment on above: Order Comment: [facility] has implemented the eGFR calculation approach that does not have a coefficient for race that conforms to the NKF-ASN Task Force Recommendations. Performed By: #### 4 6126 #### LAB [address] [address] Jack Mendoza M.D. [id number] Chloride [Moles/Vol] 98 mmol/L Normal 98-108 [facility] Comment on above: Order Comment: [facility] has implemented the eGFR calculation approach that does not have a coefficient for race that conforms to the NKF-ASN Task Force Recommendations. Performed By: #### 4 6126 #### LAB [address] [address] Jack Mendoza M.D. [id number] Creatinine [Mass/Vol] 0.69 mg/dL Normal 0.50-1.30 [facility] Comment on above: Order Comment: [facility] has implemented the eGFR calculation approach that does not have a coefficient for race that conforms to the NKF-ASN Task Force Recommendations. Performed By: #### 4 6126 #### LAB [address] [address] Jack Mendoza M.D. [id number] EGFR 107 mL/min/1.73 m2 Normal >=60 [facility] Comment on above: Order Comment: [facility] has implemented the eGFR calculation approach that does not have a coefficient for race that conforms to the NKF-ASN Task Force Recommendations. Result Comment: Ashley mated GFR was calculated using the 2020 CKD-EPI creatinine equation. Performed By: #### 4 6126 #### LAB [address] [address] Jack Mendoza M.D. [id number] Glucose [Mass/Vol] 139 mg/dL High 65-99 [facility] Comment on above: Order Comment: [facility] has implemented the eGFR calculation approach that does not have a coefficient for race that conforms to the NKF-ASN Task Force Recommendations. Performed By: #### 4 6126 #### LAB [address] [address] Jack Mendoza M.D. [id number] HCO3 (Bld) [Moles/Vol] 33 mmol/L High 21-32 [facility] Comment on above: Order Comment: [facility] has implemented the eGFR calculation approach that does not have a coefficient for race that conforms to the NKF-ASN Task Force Recommendations. Performed By: #### 4 6126 #### LAB [address] [address] Jack Mendoza M.D. [id number] Potassium [Moles/Vol] 4.1 mmol/L Normal 3.5-5.1 [facility] Comment on above: Order Comment: [facility] has implemented the eGFR calculation approach that does not have a coefficient for race that conforms to the NKF-ASN Task Force Recommendations. Performed By: #### 4 6126 #### LAB [address] [address] Jack Mendoza M.D. [id number] Protein [Mass/Vol] 7.5 g/dL Normal 6.0-8.0 [facility] Comment on above: Order Comment: [facility] has implemented the eGFR calculation approach that does not have a coefficient for race that conforms to the NKF-ASN Task Force Recommendations. Performed By: #### 4 9626 #### LAB [address] [id number] Jack Mendoza M.D. [id number] Sodium [Moles/Vol] 141 mmol/L Normal 135-145 [facility] Comment on above: Order Comment: [facility] has implemented the eGFR calculation approach that does not have a coefficient for race that conforms to the NKF-ASN Task Force Recommendations. Performed By: #### 4 6126 #### LAB [address] [address] Jack Mendoza M.D. [id number] Urea nitrogen [Mass/Vol] 16 mg/dL Normal 8-25 [facility] Comment on above: Order Comment: [facility] has implemented the eGFR calculation approach that does not have a coefficient for race that conforms to the NKF-ASN Task Force Recommendations. Performed By: #### 4 6126 #### LAB [address] [address] Jack Mendoza M.D. [id number] Urea nitrogen/Creatinine [Mass ratio] 23.2 mg/mg High 10.0-20.0 [facility] Comment on above: Order Comment: [facility] has implemented the eGFR calculation approach that does not have a coefficient for race that conforms to the NKF-ASN Task Force Recommendations. Performed By: #### 4 6126 #### LAB [address] [address] Jack Mendoza M.D. [id number] CONSULTon 10-15-2024 CONSULT Normal [facility] COVID-19/INFLUENZA A,B MOLEC ULARon 10-15-2024 SARS-CoV-2 (COVID-19) Ab IA Ql SARS-COV-2 (URSZULA) Not Detected INFLUENZA A (URSZULA) Not Detected INFLUENZA B (URSZULA) Not Detected Normal Not Detected [facility] Comment on above: Performed By: #### L [id number] #### LAB [address] [address] Jack Mendoza M.D. [id number] CT Abdomen and Pelvis W cont rast Charli 10-15-2024 1. Suboptimal pulmonary artery opacification, but no evidence of pulmonary emboli or other acute thoracic findings. 2. Cirrhotic liver morphology similar to prior with stigmata of portal venous hypertension. 3. No acute intraabdominal findings otherwise. 4. New fracture of T7. Workstation ID: [id number] [employer] EXAMINATION: CTA PULM ART AND CT ABD [...] stable. Moderate degenerative changes of the spine. [employer] Fransisco Camilo MD - 10/15/2024 EXAMINATION: CTA [...] New fracture of T7. Workstation ID: [id number] [facility] Radiology Study observation (narrative) [facility] CT Abdomen and Pelvis W cont rast IVOrdered By: Fransisco Camilo on 10-15-2024 [facility] Work Phone: CT THORACIC AND LUMBAR SPINE RECONSTRUCTEDon 10-15-2024 CT THORACIC AND LUMBAR SPINE RECONSTRUCTED Normal [facility] Comment on above: Order Comment: Injur y/Trauma or Illness?:Injury/TraumaHow long have you had these symptoms (acute/chronic)?:AcuteReason for exam?:upper and lower back pain, fallType of Exam?:InitialMechanism of injury?:fall CT Thoracic and lumbar spine WO contraston 10-15-2024 Radiology Study observation (narrative) [facility] CTA PULM ART AND CT ABD PELV IS WITH IV CONTRASTon 10-15-[address] ABD PELVIS WITH IV CONTRAST Normal [facility] Comment on above: Order Comment: Injur y/Trauma or Illness?:Illness/OtherHow long have you had these symptoms (acute/chronic)?:AcuteReason for exam?:suspected PE and abdominal pain, sobType of Exam?:InitialAdditional signs and symptoms?:fall, previous leg infection Comprehensive metabolic 2000 panelon 10-15-2024 Albumin [Mass/Vol] 3.5 g/dL 3.2 - 5.2 g/dL [facility] ALP [Catalytic activity/Vol] 89 U/L 40 - 150 U/L [facility] ALT [Catalytic activity/Vol] 15 U/L [facility] Anion gap [Moles/Vol] 14 mmol/L 10 - 20 mmol/L [facility] AST [Catalytic activity/Vol] 28 U/L [facility] Bilirubin [Mass/Vol] 0.7 mg/dL 0.0 - 1 .3 mg/dL [facility] Calcium [Mass/Vol] 8.8 mg/dL 8.4 - 10. 2 mg/dL [facility] Chloride [Moles/Vol] 98 mmol/L 98 - 10 8 mmol/L [facility] Creatinine [Mass/Vol] 0.69 mg/dL 0.50 - 1.30 mg/dL [facility] GFR/1.73 sq M.predicted CKD-EPI (S/P/Bld) [Vol rate/Area] 107 - PINF [facility] Comment on above: Estimated GFR was ca lculated using the 2020 CKD-EPI creatinine equation. Glucose [Mass/Vol] 139 mg/dL High 65 - 99 mg/dL [facility] HCO3 [Moles/Vol] 33 mmol/L High 21 - 32 mmol/L [facility] Interpretation and review of laboratory results Abnormal [facility] Potassium [Moles/Vol] 4.1 mmol/L 3.5 - 5.1 mmol/L [facility] Protein [Mass/Vol] 7.5 g/dL 6.0 - 8.0 g/dL [facility] Sodium [Moles/Vol] 141 mmol/L 135 - 145 mmol/L [facility] Urea nitrogen [Mass/Vol] 16 mg/dL 8 - 25 mg/dL [facility] Urea nitrogen/Creatinine [Mass ratio] 23.2 mg/mg High 10.0 - 20.0 [facility] has implemented the eGFR calculation approach that does not have a coefficient for race that conforms to the NKF-ASN Task Force Recommendations. [facility] Critical Careon 10-15-2024 Jose Lozano MD 11:52 PM Critical Care Performed by: Jose Lozano MD Authorized by: Jose Lozano MD Total critical care time: 50 minutes Critical care was time spent personally by me on the following activities: examination of patient, pulse oximetry and re-evaluation of patient's condition. [facility] D-DIMER, QUANTITATIVEon 09-23 D-DIMER QUANTITATIVE 13.56 mcg/mL FEU High 0.27-0.49 [facility] Comment on above: Order Comment: A D-d [...] By: #### 4 5434 #### LAB [address], [place] [address] Jack Mendoza M.D. [id number] D-Dimer, QuantitativeOrdered By: Molly Costa on 10-15-2024 Fibrin D-dimer FEU (PPP) [Mass/Vol] 13.56 High [facility] Interpretation and review of laboratory results Abnormal [facility] A D-dimer concentrat ion of <0.5 micrograms per milliliter FEU is considered a low probability for pulmonary embolus (PE) and deep venous thrombosis (DVT). Results of this test should always be interpreted in conjunction with the patient's medical history,clinical presentation, and other findings. Clinical diagnosis should not be based on the results of the D-dimer alone. [facility] ED Prov Noteon 10-15-2024 ED Prov Note Normal [facility] EKGon 10-15-2024 [facility] Influenza virus A and B RNA and SARS-CoV-2 (COVID-19) N gene panel HERMAN+probe (Resp)Ordered By: Sara Barba on 10-15-2024 FLUAV RNA HERMAN+probe Ql (Unsp spec) Not detected Not Detected [facility] FLUBV RNA HERMAN+probe Ql (Unsp spec) Not detected Not Detected [facility] SARS-CoV-2 (COVID-19) RNA HERMAN+probe Ql (Resp) Not detected Not Detected [facility] MORPHOLOGYon 10-15-2024 OVAL SCAN Moderate Normal [facility] Comment on above: Performed By: #### L [id number] ####[facility] LAB [address] [address] Jack Mendoza M.D. [id number] PLATELET ESTIMATE Decreased Abnormal Normal [facility] Comment on above: Performed By: #### L AB295 ####[facility] LAB [address] [address] Jack Mendoaz M.D. [id number] POLY SCAN Few Normal [facility] Comment on above: Performed By: #### L AB295 ####[facility] LAB [address] [address] Jack Mendoza M.D. [id number] RBC MORPH SCAN See Comment Normal [facility] Comment on above: Result Comment: RBC Indices confirmed with manual peripheral smear review. Performed By: #### L AB295 ####[facility] LAB [address] [address] Jack Mendoza M.D. [id number] STOMATOCYTES Few Normal [facility] Comment on above: Performed By: #### L [id number] ####[facility] LAB [address] [address] Jack Mendoza M.D. [id number] TARGET CELL SCAN Few Normal [facility] Comment on above: Performed By: #### L AB295 ####[facility] LAB [address] [address] Jack Mendoza M.D. [id number] TEAR DROP CELL SCAN Few Normal [facility] Comment on above: Performed By: #### L AB295 ####[facility] LAB [address] [address] Jack Mendoza M.D. [id number] MRSA DNA AMPLIFIED PROBEon 0 10-15-2024 MRSA DNA AMPLIFIED PROBE Negative Normal Not Detected, MRSA NEGATIVE [facility] Comment on above: Performed By: #### 4 8061 #### LAB [address], [place] [address] Jack Mendoza M.D. [id number] MRSA DNA Amplified Probeon 0 10-15-2024 MRSA DNA HERMAN+probe Ql (Unsp spec) Negative Not Detected, MRSA NEGATIVE [facility] MRSA DNA HERMAN+probe Ql (Unsp spec)on 10-15-2024 Interpretation and review of laboratory results Normal [facility] NT PRO BNPon 10-15-2024 Natriuretic peptide B (Bld) [Mass/Vol] 163 pg/mL Normal 0-300 [facility] Comment on above: Order Comment: Pride Study Cut-offsRule In:< /= 50 Years >450 pg/mL51 Years - 75 Years >900 pg/mL76 Years - 99 Years >1800 pg/mLRule Out:All patients <300 pg/mL Performed By: #### 4 7395 #### LAB [address], [place] [address] Jack Mendoza M.D. [id number] NT Pro BNPon 10-15-2024 Natriuretic peptide.B prohormone N-Terminal [Mass/Vol] 163 pg/mL 0 - 300 pg/mL [facility] Natriuretic peptide.B prohor randi N-Terminal [Mass/Vol]on 10-15-2024 Pride Study Cut-offs Rule In: < /= 50 Years >450 pg/mL 51 Years - 75 Years >900 pg/mL 76 Years - 99 Years >1800 pg/mL Rule Out: All patients <300 pg/mL [facility] No Panel Informationon 10-15 1. No acute fracture or dislocation of the pelvis or either tibia or fibula is seen. If there is concern for an occult injury of the pelvis, cross-sectional imaging is recommended. Otherwise, if pain persists, repeat radiographs are recommended in 7-10 days. [facility] Workstation ID: [id number] [employer] [facility] EXAM[facility]: XR PELVIS 1 VIEW (STANDARD); XR [...] in 7-10 days. ANNE/karyn Workstation ID: [id number] [facility] Interpretation and review of laboratory results Abnormal [facility] Interpretation and review of laboratory results Normal [facility] No Panel InformationOrdered By: Rodolfo Garcia on 10-15-2024 [facility] Work Phone: Obtain venous blood gases an d performon 10-15-2024 [facility] POC VENOUS BLOOD GAS PANEL-P MARYANA Ortega 10-15-2024 BASE EXCESS, VENOUS 9.7 High -2.0-2.0 [facility] Comment on above: Performed By: #### 4 8717 ####[facility] LAB [address], [place] [address] Jack Mendoza M.D. [id number] CALCIUM IONIZED 4.5 mg/dL Normal 4.5-5.3 [facility] Comment on above: Performed By: #### 4 8717 ####[facility] LAB [address], [place] [address] Jack Mendoza M.D. [id number] CARBOXYHEMOGLOBIN 2.7 % of total Hb High <=1.5 [facility] Comment on above: Result Comment: Refe rence Ranges:Suburban Non-smokers: <1.5%Smokers: 1.5-5.0%Heavy Smokers: 5.0-9.0% Performed By: #### 4 8717 ####[facility] LAB [address], [place] [address] Jack Mendoza M.D. [id number] Chloride [Moles/Vol] 96 mmol/L Low 98-108 [facility] Comment on above: Performed By: #### 4 8717 ####[facility] LAB [address], [place] [address] Jack Mendoza M.D. [id number] FIO2 21 Normal [facility] Comment on above: Performed By: #### 4 8717 ####[facility] LAB [address] [address] Jack Mendoza M.D. [id number] Glucose [Mass/Vol] 134 mg/dL High 65-99 [facility] Comment on above: Performed By: #### 4 8717 ####[facility] LAB [address] [address] Jack Mnedoza M.D. [id number] HCO3 (Bld) [Moles/Vol] 37.3 mmol/L High 24.0-28.0 [facility] Comment on above: Performed By: #### 4 8717 ####[facility] LAB [address] [address] Jack Mendoza M.D. [id number] Hematocrit (Bld) [Volume fraction] 35.1 % Low 41.0-53.0 [facility] Comment on above: Performed By: #### 4 8717 #### LAB [address] [address] Jack Mendoza M.D. [id number] Hemoglobin (Bld) [Mass/Vol] 11.4 g/dL Low 13.5-17.5 [facility] Comment on above: Performed By: #### 4 8717 #### LAB [address] [address] Jack Mendoza M.D. [id number] LACTIC ACID, WHOLE BLOOD 1.1 mmol/L Normal 0.6-2.0 [facility] Comment on above: Performed By: #### 4 8717 ####[facility] LAB [address] [address] Jack Mendoza M.D. [id number] METHEMOGLOBIN < Normal 0.0-2.0 [facility] Comment on above: Performed By: #### 4 8717 ####[facility] LAB [address] [address] Jack Mendoza M.D. [id number] O2HB 55.3 % Normal No established reference range [facility] Comment on above: Performed By: #### 4 8717 ####[facility] LAB [address] [address] Jack Mendoza M.D. [id number] Oxygen saturation in Blood 57.2 % Normal 40.0-70.0 [facility] Comment on above: Performed By: #### 4 8717 #### LAB [address] [address] Jack Mendoza M.D. [id number] PCO2 VENOUS 65.4 mm Hg High 41.0-51.0 [facility] Comment on above: Performed By: #### 4 8717 ####[facility] LAB [address] [address] Jack Mendoza M.D. [id number] PH VENOUS 7.36 Normal 7.32-7.42 [facility] Comment on above: Performed By: #### 4 8717 #### LAB [address] [address] Jack Mendoza M.D. [id number] PO2 VENOUS 34 mm Hg Normal 25-40 [facility] Comment on above: Performed By: #### 4 8717 ####[facility] LAB [address] [address] Jack Mendoza M.D. [id number] Potassium [Moles/Vol] 3.9 mmol/L Normal 3.5-5.1 [facility] Comment on above: Performed By: #### 4 8717 #### LAB [address] [address] Jack Mendoza M.D. [id number] Sodium [Moles/Vol] 142 mmol/L Normal 135-145 [facility] Comment on above: Performed By: #### 4 8717 ####[facility] LAB [address] [address] Jack Mendoza M.D. [id number] SPECIMEN SOURCE RADIANCE Not specified Normal [facility] Comment on above: Performed By: #### 4 8717 #### LAB [address] [address] Jack Mendoza M.D. [id number] POC Venous Blood Gas Panel-[facility] 10-15-2024 Base excess Calc (BldV) [Moles/Vol] 9.7 mmol/L High -2.0 - 2.0 [facility] Calcium.ionized [Mass/Vol] 4.5 mg/dL 4.5 - 5.3 mg/dL [facility] Carboxyhemoglobin (BldA) [Mass fraction] 2.7 High [facility] Comment on above: Reference Ranges: [facility] Non-smokers: <1.5% Smokers: 1.5-5.0% Heavy Smokers: 5.0-9.0% CO2 (BldV) [Partial pressure] 65.4 mm[Hg] High [facility] Glucose post fast [Mass/Vol] 134 mg/dL High 65 - 99 mg/dL [facility] Hematocrit (BldA) [Volume fraction] 35.1 % Low 41.0 - 53.0 % [facility] Inhaled oxygen concentration 21 % [facility] Interpretation and review of laboratory results Abnormal [facility] Lactate [Moles/Vol] 1.1 mmol/L 0.6 - 2. 0 mmol/L [facility] Methemoglobin (BldA) [Mass fraction] % 0.0 - 2.0 % [facility] Oxygen (BldV) [Partial pressure] 34 mm[Hg] [facility] Oxygen saturation in Venous blood 57.2 % 40.0 - 70.0 % [facility] Oxyhemoglobin (BldA) [Mass fraction] 55.3 % No established reference range [facility] pH (BldV) 7.36 [pH] 7.32 - 7.42 [facility] Specimen source Nom (Unsp spec) Not specified [facility] TROPONINon 10-15-2024 TROPONIN T DELTA CHANGE INTERPRETATION Possible acute cardiac injury. Consider additional troponin testing and correlate with clinical factors. Normal [facility] Comment on above: Performed By: #### 4 660 #### LAB [address], [place] [address] Jack Mendoza M.D. [id number] TROPONIN T DELTA DIFFERENCE 10 ng/L Off scale high < = -/+ 7 change [facility] Comment on above: Performed By: #### 4 6608 #### LAB [address], [place] [address] Jack Mendoza M.D. [id number] TROPONIN T NG/L 20 ng/L Normal <=22 [facility] Comment on above: Performed By: #### 4 6608 #### LAB [address] [address] Jack Mendoza M.D. [id number] BASELINE TROPONIN T NG/L 10 ng/L Normal <=22 [facility] Comment on above: Performed By: #### 4 6608 #### LAB [address] [address] Jack Mendoza M.D. [id number] TROPONIN T INTERPRETATION Normal Normal [facility] Comment on above: Performed By: #### 4 6608 #### LAB [address] [address] Jack Mendoza M.D. [id number] Troponin x 2 (Now and Repeat in 3 hours)Ordered By: Joslyn Page on 10-15-2024 Delta Difference Troponin T 10 ng/L Critically high < = -/+ 7 change [facility] Interp Troponin T Delta Change Possible acute cardiac injury. Consider additional troponin testing and correlate with clinical factors. [facility] Interpretation and review of laboratory results Abnormal [facility] Troponin T.cardiac High sensitivity method [Mass/Vol] 20 ng/L NINF - 22 ng/L [facility] Troponin x 2 (Now and Repeat in 3 hours)on 10-15-2024 Troponin T 10 ng/L NINF - 22 ng/L [facility] Troponin T Interpretation Normal [facility] VITAMIN D, TOTAL, 25-OHon VITAMIN D 25-HYDROXY 11 ng/mL Low 20-100 [facility] Comment on above: Order Comment: Vitam in D Expected ValuesDeficiency: 0-10Insufficiency: 10-20Sufficient: 20-100Toxicity: >100 Performed By: #### 4 6678 #### LAB [address] [address] Jack Mendoza M.D. [id number] XR CHEST PA/APon 10-15-2024 XR CHEST PA/AP Normal [facility] Comment on above: Order Comment: Injur y/Trauma or Illness?:Illness/OtherHow long have you had these symptoms (acute/chronic)?:AcuteReason for exam?:shortness of breathHistory of cancer?:uSurgeries, chemotherapy, or radiation?:uType of Exam?:InitialAdditional signs and symptoms?:chest pain XR Chest PA and Abdomen APon 10-15-2024 No acute cardiopulmonary process. Workstation ID: [id number] [employer] EXAMINATION: XR CHEST PA/AP HISTORY: ORDERING SYSTEM [...] normal in size. Bony thorax is unremarkable. [employer] [facility] Mariaelena Thompson MD - 10/15/2024 EXAMINATION: XR [...] No acute cardiopulmonary process. Workstation ID: [id number] [facility] Radiology Study observation (narrative) [facility] XR Chest PA and Abdomen APOr dered By: Mariaelena Thompson on 10-15-2024 [facility] Work Phone: XR PELVIS 1 VIEW (STANDARD)o n 10-15-2024 XR PELVIS 1 VIEW (STANDARD) Normal [facility] Comment on above: Order Comment: Injur y/Trauma or Illness?:Injury/TraumaHow long have you had these symptoms (acute/chronic)?:AcuteReason for exam?:fallHistory of cancer?:uSurgeries, chemotherapy, or radiation?:uType of Exam?:InitialMechanism of injury?:fall XR Pelvis 1 or 2 [facility] Rad[facility] Study observation (narrative) [facility] XR TIBIA FIBULA LEFT 2 VIEWS on 10-15-2024 XR TIBIA FIBULA LEFT 2 VIEWS Normal [facility] Comment on above: Order Comment: Injur y/Trauma or Illness?:Injury/TraumaHow long have you had these symptoms (acute/chronic)?:AcuteReason for exam?:fallHistory of cancer?:uSurgeries, chemotherapy, or radiation?:uType of Exam?:InitialMechanism of injury?:cellulitus,weeping XR TIBIA FIBULA RIGHT 2 VIEW Son 10-15-2024 XR TIBIA FIBULA RIGHT 2 VIEWS Normal [facility] Comment on above: Order Comment: Injur y/Trauma or Illness?:Injury/TraumaHow long have you had these symptoms (acute/chronic)?:AcuteReason for exam?:fallHistory of cancer?:uSurgeries, chemotherapy, or radiation?:uType of Exam?:InitialMechanism of injury?:cellulitus,weeping XR Tibia and Fibula - left 2 [facility] 10-15-2024 Radiology Study observation (narrative) [facility] XR Tibia and Fibula - right 2 [facility] 10-15-2024 Radiology Study observation (narrative) [facility] BODY FLUID AEROBIC CULTUREon 07-05-2024 BODY FLUID AEROBIC CULTURE AEROBIC CULTURE No Growth after 5 days GRAM STAIN RESULT Few WBC No Organisms Seen Normal [facility] Comment on above: Performed By: #### 4 4016 ####[facility] [address] [place], [place] [address] Venancio Richardson M.D. [id number] Disch Summon 07-05-2024 Disch Summ Normal [facility] SYNOVIAL FLUID ANALYSISon APPEARANCE, SNF Cloudy Abnormal Clear [facility] Comment on above: Performed By: #### 4 5230 #### LAB [address] [place], [place] [address] Jack Mendoza M.D. [id number] CALCIUM PYROPHOSPHATE, SNF Negative Normal Negative [facility] Comment on above: Performed By: #### 4 5230 #### LAB [address] [id number] Jack Mendoza M.D. [id number] COLOR, SNF Light Red Abnormal Straw [facility] Comment on above: Performed By: #### 4 5230 #### LAB [address] [id number] Jack Mendoza M.D. [id number] FIBRIN CLOT, SNF Absent Normal Absent [facility] Comment on above: Performed By: #### 4 5230 #### LAB [address] [id number] Jack Mendoza M.D. [id number] Lymphocytes/100 WBC (Bld) 0 % Normal 0-0 [facility] Comment on above: Performed By: #### 4 5230 #### LAB [address] [address] Jack Mendoza M.D. [id number] Monocytes/100 WBC (Bld) 0 % Normal 00 [facility] Comment on above: Performed By: #### 4 5230 #### LAB [address] [place] [address] Jack Mendoza M.D. [id number] Neutrophils/100 WBC (Bld) 100 % High 0-25 [facility] Comment on above: Performed By: #### 4 5230 #### LAB [address] [address] Jack Mendoza M.D. [id number] RBC, SNF [address] /mcL High 0-0 [facility] Comment on above: Performed By: #### 4 5230 #### LAB [address] [id number] Jack Mendoza M.D. [id number] URATES, SNF Negative Normal Negative [facility] Comment on above: Performed By: #### 4 5230 #### LAB [address] [place] [address] Jack Mendoza M.D. [id number] WBC/NUC CELLS, SNF [address] /mcL High 0-200 [facility] Comment on above: Result Comment: WBC/ Nuc cell count includes mesothelial and other non-WBC nucleated cells as reflected in the differential. Performed By: #### 4 5230 ####[facility] [address] [place], [place] [address] Jack Mendoza M.D. [id number] Synovial Fluid AnalysisOrder ed By: Sunitha Whitney on 07-05-2024 Appearance (Syn fld) Cloudy Abnormal Clear [facility] Color (Syn fld) Light Red Abnormal [facility] Fibrin Clot, [facility] Absent Absent [facility] Interpretation and review of laboratory results Abnormal [facility] Lymphocytes/100 WBC Auto (Syn fld) 0 % 0 - 0 % [facility] Monocytes/100 WBC (Syn fld) 0 % 0 - 0 % [facility] Neutrophils/100 WBC (Syn fld) 100 % High 0 - 25 % [facility] Nucleated cells Manual cnt (Syn fld) [#/Vol] [id number] High [facility] Comment on above: WBC/Nuc cell count i ncludes mesothelial and other non-WBC nucleated cells as reflected in the differential. Pyrophosphate crystals LM Ql (Syn fld) Negative Negative [facility] RBC Auto (Syn fld) [#/Vol] [id number] High [facility] Urate crystals LM Ql (Syn fld) Negative Negative [facility] Blastomyces Antibodyon 07-04 B. dermatitidis Ab CF Qn (S) Negative Negative [facility] Comment on above: A single negative re sult does not exclude the diagnosis of blastomycosis. Repeat testing on a new sample in 7-14 days if clinically indicated. Test Performed by: [facility] [address] [place] [address] Senior Investment Manager: Ty Ordoñez Ph.D.; CLIA# [id number] [facility] Fungitell, Serumon Fungitell Negative Negative [facility] [facility] Comment on above: No (1, 3) Beta-D-Glu can detected. This assay does not detect certain fungi, including Cryptococcus species, which produce very low levels of (1, 3) Glbg-Z-Xvxyam (BDG) and the Mucorales (e.g., Lichthemia, Mucor and Rhizopus), which are not known to produce BDG. Additionally, the yeast phase of Blastomyces dermatitidis produces little BDG and may not be detected by this assay. ADDITIONAL INFORMATION This assay was performed using the FDA-cleared Fungitell Assay ([place], [place], [place]), a kinetic YOJANA based on modification of the Limulus Amebocyte Lysate pathway. Test Performed by: [facility] [address] [place] [address] Senior Investment Manager: Ty Ordoñez Ph.D.; CLIA# [id number] Fungitell Assay 39 pg/mL <60 pg/mL [facility] US Abdomen limitedon 024 Cirrhosis with splenomegaly. No ascites. No cholelithiasis or biliary ductal dilatation. No right hydronephrosis or nephrolithiasis. [employer] Workstation ID: [id number] [employer] EXAMINATION: US ABDOMEN LIMITED STUDY HISTORY: ORDERING [...] unspecified hypotension type F14.10 Nondependent cocaine abuse ([facility]) D72.829 Leukocytosis, unspecified type F19.10 Polysubstance abuse (HCC) J41.1 Mucopurulent chronic bronchitis (HCC) E11.9 Type 2 diabetes mellitus without complication, without long-term current use of insulin (HCC) E66.01 Morbid obesity with BMI of 40.0-44.9, adult (HCC) Z68.41 Morbid obesity with BMI of 40.0-44.9, adult (HCC) I48.91 Atrial fibrillation with rapid ventricular response ([facility]) F11.20 Uncomplicated opioid dependence (HCC) [...] measures 22.4 x 7.6 x 8.3 cm. [facility] Khadar Beth, DO - 07/04/2024 EXAMINATION: US [...] heart failure with preserved ejection fraction (HFpEF) ([facility]) I50.32 Chronic diastolic congestive heart failure ([facility]) D61.818 Pancytopenia ([facility]) L03.115 Cellulitis of right lower extremity L08.9 Foot infection E27.40 Adrenal insufficiency ([facility]) T84.53XD Infection associated with internal right knee prosthesis, subsequent encounter L97.922 Skin ulcer of left lower leg with fat layer exposed ([facility]) L97.519 Plantar ulcer of right foot, unspecified ulcer stage ([facility]) G89.4 Chronic pain syndrome I87.2 Venous stasis dermatitis of both lower extremities D69.6 Thrombocytopenia ([facility]) T14.8XXA Hematoma K70.31 Alcoholic cirrhosis of liver with ascites ([facility]) R90.[address] M89.8X5 Pain of left femur M25.552 Acute pain of left hip I95.9 Hypotension, unspecified hypotension type F14.10 Nondependent cocaine abuse ([facility]) D72.829 Leukocytosis, unspecified type F19.10 Polysubstance abuse ([facility]) J41.1 Mucopurulent chronic bronchitis ([facility]) E11.9 Type 2 diabetes mellitus without complication, without long-term current use of insulin ([facility]) E66.01 Morbid obesity with BMI of 40.0-44.9, adult ([facility]) Z68.41 Morbid obesity with BMI of 40.0-44.9, adult ([facility]) I48.91 Atrial fibrillation with rapid ventricular response ([facility]) F11.20 Uncomplicated opioid dependence ([facility]) J96.11 Chronic respiratory failure with hypoxia and hypercapnia ([facility]) J96.12 Chronic respiratory failure with hypoxia and hypercapnia ([facility]) I10 Essential hypertension M17.11 Primary [...] ductal dilatation. No right hydronephrosis or nephrolithiasis. /[facility] Workstation ID: [id number] [facility] Radiology Study observation (narrative) [facility] US Abdomen limitedOrdered By : Khadar Beth on 07-04-2024 [facility] Work Phone: CBC panel Auto (Bld)on 07-03 Erythrocyte distribution width (RBC) [Entitic vol] 15.3 % High 11.6 - 14.8 % [facility] Hematocrit (Bld) [Volume fraction] 35 % Low 41.0 - 53.0 % [facility] Hemoglobin (Bld) [Mass/Vol] 10.7 g/dL Low 13.5 - 17.5 g/dL [facility] Interpretation and review of laboratory results Abnormal [facility] MCH (RBC) [Entitic mass] 22 pg Low 26.0 - 34.0 pg [facility] MCHC (RBC) [Mass/Vol] 30.6 g/dL Low 31.0 - 37.0 g/dL [facility] MCV (RBC) [Entitic vol] 72 fL Low 80.0 - 100.0 fL [facility] Nucleated RBC (Bld) [#/Vol] 0 10*3/uL [facility] Nucleated RBC/100 WBC (Bld) [Ratio] 0 % [facility] Platelet mean volume (Bld) [Entitic vol] 10 fL 9.4 - 12.4 fL [facility] Platelets (Bld) [#/Vol] 135 10*3/uL Low [facility] RBC (Bld) [#/Vol] 4.86 10*6/uL [facility] WBC (Bld) [#/Vol] 4.66 10*3/uL [facility] Comprehensive metabolic 2000 panelOrdered By: Krystian Nicole on 07-03-2024 Albumin [Mass/Vol] 3.6 g/dL 3.2 - 5.2 g/dL [facility] ALP [Catalytic activity/Vol] 75 U/L 40 - 150 U/L [facility] ALT [Catalytic activity/Vol] 9 U/L [facility] Anion gap [Moles/Vol] 15 mmol/L 10 - 20 mmol/L [facility] AST [Catalytic activity/Vol] 22 U/L [facility] Bilirubin [Mass/Vol] 0.5 mg/dL 0.0 - 1 .3 mg/dL [facility] Calcium [Mass/Vol] 8.4 mg/dL 8.4 - 10. 2 mg/dL [facility] Chloride [Moles/Vol] 96 mmol/L Low 98 - 10 8 mmol/L [facility] Creatinine [Mass/Vol] 0.68 mg/dL 0.50 - 1.30 mg/dL [facility] GFR/1.73 sq M.predicted CKD-EPI (S/P/Bld) [Vol rate/Area] 108 - PINF [facility] Comment on above: Estimated GFR was ca lculated using the 2020 CKD-EPI creatinine equation. Glucose [Mass/Vol] 103 mg/dL High 65 - 99 mg/dL [facility] HCO3 [Moles/Vol] 30 mmol/L 21 - 32 mmol/L [facility] Interpretation and review of laboratory results Abnormal [facility] Potassium [Moles/Vol] 3.6 mmol/L 3.5 - 5.1 mmol/L [facility] Protein [Mass/Vol] 7.9 g/dL 6.0 - 8.0 g/dL [facility] Sodium [Moles/Vol] 137 mmol/L 135 - 145 mmol/L [facility] Urea nitrogen [Mass/Vol] 16 mg/dL 8 - 25 mg/dL [facility] Urea nitrogen/Creatinine [Mass ratio] 23.5 mg/mg High 10.0 - 20.0 [facility] has implemented the eGFR calculation approach that does not have a coefficient for race that conforms to the NKF-ASN Task Force Recommendations. [facility] ECG 12 Lead (Now)on 07-03-20 24 Atrial Rate 75 BPM [facility] P Gladwin 78 degrees [facility] P-R Interval 158 ms [facility] Q-T Interval 394 ms [facility] QRS Duration 90 ms [facility] QTC Calculation (Bezet) 439 ms [facility] R Gladwin 60 degrees [facility] T Gladwin 57 degrees [facility] Ventricular Rate 75 BPM [facility] th Normal sinus rhythm Normal ECG ECG Cart Interpretation see physician note for interpretation. Confirmed by Yanet Paige ([id number]) on 07/03/2024 7:03:07 PM MUSE [facility] Glucose (Bld) [Mass/Vol]on 09-02-2023 Glucose [Mass/Vol] 154 mg/dL High 65 - 99 mg/dL [facility] Interpretation and review of laboratory results Abnormal [facility] CBC Auto Differentialon 06-22 Basophils (Bld) [#/Vol] 0.01 10*3/uL [facility] Basophils/100 WBC (Bld) 0.2 % [facility] Eosinophils (Bld) [#/Vol] 0.02 10*3/uL [facility] Eosinophils/100 WBC (Bld) 0.5 % [facility] Erythrocyte distribution width (RBC) [Entitic vol] 15.4 % High 11.6 - 14.8 % [facility] Hematocrit (Bld) [Volume fraction] 36.1 % Low 41.0 - 53.0 % [facility] Hemoglobin (Bld) [Mass/Vol] 11.1 g/dL Low 13.5 - 17.5 g/dL [facility] Immature granulocytes (Bld) [#/Vol] 0.01 10*3/uL [facility] Immature granulocytes/100 WBC (Bld) 0.2 % [facility] Comment on above: The IG parameter is the percentage of metamyelocytes, myelocytes and promyelocytes. An immature granulocyte count (IG) of 1% or more suggests the possibility of infection, an IG count of 3% is very likely related to an infection. Interpretation and review of laboratory results Abnormal [facility] Lymphocytes (Bld) [#/Vol] 0.54 10*3/uL Low [facility] Lymphocytes/100 WBC (Bld) 12.2 % [facility] MCH (RBC) [Entitic mass] 22.4 pg Low 26.0 - 34.0 pg [facility] MCHC (RBC) [Mass/Vol] 30.7 g/dL Low 31.0 - 37.0 g/dL [facility] MCV (RBC) [Entitic vol] 72.9 fL Low 80.0 - 100.0 fL [facility] Monocytes (Bld) [#/Vol] 0.26 10*3/uL Low [facility] Monocytes/100 WBC (Bld) 5.9 % [facility] Neutrophils (Bld) [#/Vol] 3.59 10*3/uL [facility] Neutrophils/100 WBC (Bld) 81 % [facility] Nucleated RBC (Bld) [#/Vol] 0 10*3/uL [facility] Nucleated RBC/100 WBC (Bld) [Ratio] 0 % [facility] Platelet mean volume (Bld) [Entitic vol] 10 fL 9.4 - 12.4 fL [facility] Platelets (Bld) [#/Vol] 131 10*3/uL Low [facility] RBC (Bld) [#/Vol] 4.95 10*6/uL [facility] ealth WBC (Bld) [#/Vol] 4.43 10*3/uL Low [facility] CRP, Inflammationon 07-02-20 CRP [Mass/Vol] 36.2 mg/L High 0.0 - 10.0 mg/L [facility] CT Pulmonary arteries for pu [...] are seen. Old rib fractures are noted. [facility] Rangel Garcia MD - 07/02/2024 EXAMINATION: CT [...] infection is not excluded. Workstation ID: [id number] [facility] Radiology Study observation (narrative) [facility] CT Pulmonary arteries for pu lmonary embolusOrdered By: Rangel Garcia on 07-02-2024 [facility] Work Phone: Comprehensive metabolic 2000 panelOrdered By: Caty Sanchez on 07-02-2024 Albumin [Mass/Vol] 3.7 g/dL 3.2 - 5.2 g/dL [facility] ALP [Catalytic activity/Vol] 70 U/L 40 - 150 U/L [facility] ALT [Catalytic activity/Vol] 13 U/L [facility] Anion gap [Moles/Vol] 15 mmol/L 10 - 20 mmol/L [facility] AST [Catalytic activity/Vol] 25 U/L [facility] Bilirubin [Mass/Vol] 0.8 mg/dL 0.0 - 1 .3 mg/dL [facility] Calcium [Mass/Vol] 8.8 mg/dL 8.4 - 10. 2 mg/dL [facility] Chloride [Moles/Vol] 99 mmol/L 98 - 10 8 mmol/L [facility] Creatinine [Mass/Vol] 0.61 mg/dL 0.50 - 1.30 mg/dL [facility] GFR/1.73 sq M.predicted CKD-EPI (S/P/Bld) [Vol rate/Area] 112 - PINF [facility] Comment on above: Estimated GFR was ca lculated using the 2020 CKD-EPI creatinine equation. Glucose [Mass/Vol] 132 mg/dL High 65 - 99 mg/dL [facility] HCO3 [Moles/Vol] 27 mmol/L 21 - 32 mmol/L [facility] Interpretation and review of laboratory results Abnormal [facility] Potassium [Moles/Vol] 3.8 mmol/L 3.5 - 5.1 mmol/L [facility] Protein [Mass/Vol] 8.1 g/dL High 6.0 - 8.0 g/dL [facility] Sodium [Moles/Vol] 137 mmol/L 135 - 145 mmol/L [facility] Urea nitrogen [Mass/Vol] 12 mg/dL 8 - 25 mg/dL [facility] Urea nitrogen/Creatinine [Mass ratio] 19.7 mg/mg 10.0 - 20.0 [facility] has implemented the eGFR calculation approach that does not have a coefficient for race that conforms to the NKF-ASN Task Force Recommendations. [facility] D-Dimer, QuantitativeOrdered By: Sara Barba on 07-02-2024 Fibrin D-dimer FEU (PPP) [Mass/Vol] 14.75 [facility] Interpretation and review of laboratory results Abnormal [facility] A D-dimer concentrat ion of <0.5 micrograms per milliliter FEU is considered a low probability for pulmonary embolus (PE) and deep venous thrombosis (DVT). Results of this test should always be interpreted in conjunction with the patient's medical history,clinical presentation, and other findings. Clinical diagnosis should not be based on the results of the D-dimer alone. [facility] EKGon 07-02-2024 [facility] ESR Westergren method (Bld) [Velocity]on 07-02-2024 ESR (Bld) [Velocity] 101 mm/h [facility] Interpretation and review of laboratory results Abnormal [facility] Gold Topon 07-02-2024 Extra Tube Hold for add-ons. [facility] Comment on above: Auto resulted. [facility] Combs Topon 07-02-2024 Extra Tube Hold for add-ons. [facility] Comment on above: Auto resulted. [facility] NT Pro BNPon 07-02-2024 Natriuretic peptide.B prohormone N-Terminal [Mass/Vol] 552 pg/mL High 0 - 300 pg/mL [facility] Natriuretic peptide.B prohor randi N-Terminal [Mass/Vol]on 07-02-2024 [employer] Cut-offs Rule In: < /= 50 Years >450 pg/mL 51 Years - 75 Years >900 pg/mL 76 Years - 99 Years >1800 pg/mL Rule Out: All patients <300 pg/mL [facility] No Panel Informationon 07-02 Interpretation and review of laboratory results Abnormal [facility] Troponin x 2 (Now and Repeat in 3 hours)Ordered By: Sb Neal on 07-02-2024 Troponin T ng/L NINF - 22 ng/L [facility] Troponin T Interpretation Normal [facility] Ultrasound Duplex Venous Leg s BILATERALon 07-02-2024 Patient Info Name: CARMEN GILMAN Age: 58 years : 1965 Gender: Male Exam Date: 07/02/2024 3:32 PM Patient Status: Emergency Android Framework Developer: Margy Bradley RVT Referring Physician: INDERJIT Jaimes; Indications R22.43 - Localized swelling, mass and lump, lower limb, bilateral Procedure Description 30372 Duplex examination using B-mode, color and spectral [...] Date: 07/02/2024 3:32 PM Patient Status: Emergency Android Framework Developer: Margy Bradley RVT Referring Physician: [id number], INDERJIT; Indications R22.43 - Localized swelling, mass and lump, lower limb, bilateral Procedure Description [id number] Duplex examination using B-mode, color and spectral [...] Small Saphenous: - Small Saphenous: - - [facility] Urinalysison 07-02-2024 Bacteria Auto Ql (U) None Seen None Se en /hpf [facility] Bilirubin Ql (U) Negative Negative [facility] th Clarity Refractometry automated (U) Clear Clear [facility] Color (U) Colorless Colorless, Yellow [facility] Glucose Auto test strip (U) [Mass/Vol] Negative Negative mg/dL [facility] Hemoglobin Auto test strip Ql (U) Small Abnormal Negative [facility] Interpretation and review of laboratory results Abnormal [facility] Ketones (U) [Mass/Vol] Negative Negative mg/dL [facility] Leukocyte esterase Auto test strip Ql (U) Negative Negative [facility] Mucus Auto (Urine sed) [#/Area] Rare None Seen, Rare /lpf [facility] Nitrite Auto test strip Ql (U) Negative Negative [facility] pH (U) 6.5 [pH] 5.0 - 7.0 [facility] Protein (U) [Mass/Vol] Negative Negative mg/dL [facility] RBC Auto (Urine sed) [#/Area] 2 [facility] Specific gravity (U) [Rel density] 1.006 1.005 - 1.025 [facility] Urobilinogen (U) [Mass/Vol] mg/dL NINF - 2.0 mg/dL [facility] Microscopic examinat ion is performed on all urinalysis samples and only positive findings are reported. The test for blood on the chemical analytic portion of urinalysis may also be positive due to hemoglobinuria and myoglobinuria and if red blood cells are present they are quantified by microscopic examination. [facility] XR Chest PA and Abdomen APon 07-02-2024 No active disease. Workstation ID: [id number] [employer] EXAMINATION: XR CHEST PA/AP 07/02/2024 3:21 pm [...] IMPRESSION: No active disease. Workstation ID: [id number] [facility] Radiology Study observation (narrative) [facility] XR Chest PA and Abdomen APOr dered By: Libia Sidhu on 07-02-2024 [facility] Work Phone: XR Knee - [...] gas bubbles are seen. Workstation ID: [id number] [employer] EXAMINATION: XR KNEE RIGHT 2 VIEWS (STANDARD) [...] 10/07/2023 and right tibia/fibula radiographs of 07/02/2024. [employer] [facility] Eloy Arevalo MD - 07/02/2024 EXAMINATION: [...] gas bubbles are seen. Workstation ID: [id number] [facility] Radiology Study observation (narrative) [facility] XR Knee - right 2 ViewsOrder ed By: Eloy Arevalo on 07-02-2024 [facility] Work Phone: XR Tibia and Fibula - left 2 Viewson 07-02-2024 Extensive subcutaneous edema and soft tissue swelling without radiographic evidence of osteomyelitis. If there is high clinical concern, recommend MRI which is more sensitive. Workstation ID: [id number] [employer] EXAMINATION: XR TIBIA FIBULA LEFT 2 VIEWS [...] Extensive subcutaneous edema and soft tissue swelling. [employer] Edwin Juan, - 07/02/2024 EXAMINATION: XR TIBIA [...] which is more sensitive. Workstation ID: [id number] [facility] Radiology Study observation (narrative) [facility] XR Tibia and Fibula - right 2 Viewson 07-02-2024 Diffuse soft tissue swelling and edema without radiographic evidence of osteomyelitis. If there is high clinical concern, recommend MRI. Right total knee arthroplasty with findings suspicious for component loosening. Consider obtaining dedicated right knee radiographs as clinically warranted. Workstation ID: [id number] [employer] EXAMINATION: XR TIBIA FIBULA RIGHT 2 VIEWS [...] radiographs as clinically warranted. Workstation ID: [id number] [facility] Radiology Study observation (narrative) [facility] XR Tibia and Fibula - right 2 ViewsOrdered By: Edwin Juan on 07-02-2024 [facility] Work Phone: No Panel Informationon 05-11 XRAY CHEST 1 VIEW Invalid Interpretation Code [employer] Work Phone: Comment on above: XRAY CHEST 1 VIEWFIN DINGS: The heart and mediastinum are normal. The trachea is midline. No acute cardiopulmonary disease is noted. The osseous structures are normal for age.CONCLUSION: Normal chest exam.ELECTRONICALLY SIGNED BY FELIPE RANDHAWA D.O. 05/11/2024 3:38:17 PM EDT. No Panel Informationon 05-02 KNEE 1 OR 2 VIEWS Invalid Interpretation Code [employer] Work Phone: Comment on above: KNEE 1 [...] 04-27-2024 Anion gap [Moles/Vol] 3 mmol/L Normal [facility] Comment on above: Performed By: #### F X, BMPF #### Testing performed at [place] [id number] Calcium [Mass/Vol] 8.0 mg/dL Low 8.4-10.2 [facility] Comment on above: Performed By: #### F X, BMPF #### Testing [place] [address] Chloride [Moles/Vol] 102 mmol/L Normal 98-107 [facility] Comment on above: Result Comment: Krystian boyd note: Triglyceride levels of 600mg/dL or higher may positively bias chloride results by approximately 2.1 mmol Performed By: #### F X, BMPF #### Testing [place] [address] CO2 [Moles/Vol] 32 mmol/L High 22-30 [facility] Comment on above: Performed By: #### F X, BMPF #### Testing performed at [place] [id number] Creatinine [Mass/Vol] 0.70 mg/dL Normal 0.70-1.20 [facility] Comment on above: Performed By: #### F X, BMPF #### Testing performed at [address] [address] EST. GFR, 150 ml/min/1.73sq.m [facility] Comment on above: Performed By: #### F X, BMPF #### Testing performed at [address] [address] EST. GFR,Non 124 ml/min/1.73sq.m [facility] Comment on above: Performed By: #### F X, BMPF #### Testing performed at [address] [address] GFR Information Average GFR for 50-5 9 years old = 93. Normal [facility] Comment on above: Result Comment: [employer] Kidney disease, GFR = <60. Kidney failure, GFR = <15. The GFR estimate is not adjusted for extreme body surface area or acute process, nor has it been validated for women or ethnic groups other than and . Performed By: #### F X, BMPF #### Testing performed at [place] [id number] Glucose [Mass/Vol] 120 mg/dL High 70-100 [facility] Comment on above: Result Comment: NORMAL <100 mg/dL PREDIABETES 101-126 mg/dL DIABETES 126 mg/dL or higher Performed By: #### F X, BMPF #### Testing performed at [place] [id number] Potassium [Moles/Vol] 3.7 mmol/L Normal 3.5-5.1 [facility] Comment on above: Performed By: #### F X, BMPF #### Testing performed at [place] [id number] Sodium [Moles/Vol] 137 mmol/L Normal 137-145 [facility] Comment on above: Performed By: #### F X, BMPF #### Testing performed at [place] [id number] Urea nitrogen [Mass/Vol] 24 mg/dL High 7-20 [facility] Comment on above: Performed By: #### F X, BMPF #### Testing performed at [address] [address] FAX REQUESTon 04-27-2024 FAX TO [phone] Normal [facility] Comment on above: Performed By: #### F X, BMPF #### Testing performed at [place] [id number] CBCon 04-09-2024 Basophils/100 WBC (Bld) 1 % Normal 0.0-2.0 [facility] Comment on above: Performed By: #### U LIV, FX, ACBC, LIP2, FE2, CMPF, UMAC ####Testing performed at [address] [address] DTYPE AUTO DIFF Normal [facility] Comment on above: Performed By: #### U LIV, FX, ACBC, LIP2, FE2, CMPF, UMAC ####Testing performed at [address] [address] Eosinophils/100 WBC (Bld) 2 % Normal 0.0-11.0 [facility] Comment on above: Performed By: #### U LIV, FX, ACBC, LIP2, FE2, CMPF, UMAC ####Testing performed at [address] [address] Lymphocytes/100 WBC (Bld) 20 % Normal 20.0-55.0 [facility] Comment on above: Performed By: #### U LIV, FX, ACBC, LIP2, FE2, CMPF, UMAC ####[place] [address] Monocytes/100 WBC (Bld) 11 % High 0.0-10.0 [facility] Comment on above: Performed By: #### U LIV, FX, ACBC, LIP2, FE2, CMPF, UMAC ####Testing performed at [address] [address] Neutrophils/100 WBC (Bld) 66 % Normal 37.0-75.0 [facility] Comment on above: Performed By: #### U LIV, FX, ACBC, LIP2, FE2, CMPF, UMAC ####Testing performed at [address] [address] PLATELET COMMENT CLUMPED Normal [facility] Comment on above: Result Comment: DECR EASED Performed By: #### U LIV, FX, ACBC, LIP2, FE2, CMPF, UMAC ####Testing performed at [address] [address] RBC morphology finding Nom (Bld) 2+ Normal [facility] Comment on above: Result Comment: ANIS OCYTE 2+ ELIPTOCYTES 2+ POIKILOCYTE 1+ MICROCYTOSIS Performed By: #### U LIV, FX, ACBC, LIP2, FE2, CMPF, UMAC ####Testing performed at [address] [address] Erythrocyte distribution width (RBC) [Ratio] 17.4 % High 11.5-14.5 [facility] Comment on above: Performed By: #### U LIV, FX, ACBC, LIP2, FE2, CMPF, UMAC ####Testing performed at [place] [id number] Hematocrit (Bld) [Volume fraction] 31.5 % Low 42.0-52.0 [facility] Comment on above: Performed By: #### U LIV, FX, ACBC, LIP2, FE2, CMPF, UMAC ####Testing performed at [place] [id number] Hemoglobin (Bld) [Mass/Vol] 9.9 g/dL Low 14.0-18.0 [facility] Comment on above: Performed By: #### U LIV, FX, ACBC, LIP2, FE2, CMPF, UMAC ####Testing performed at [place] [id number] MCH (RBC) [Entitic mass] 22.5 pg Low 26.0-35.0 [facility] Comment on above: Performed By: #### U LIV, FX, ACBC, LIP2, FE2, CMPF, UMAC ####Testing performed at [place] [id number] MCHC (RBC) [Mass/Vol] 31.4 g/dL Normal 27.0-37.0 [facility] Comment on above: Performed By: #### U LIV, FX, ACBC, LIP2, FE2, CMPF, UMAC ####Testing performed at [address] [address] MCV (RBC) [Entitic vol] 71.6 fL Low 80.0-100.0 [facility] Comment on above: Performed By: #### U LIV, FX, ACBC, LIP2, FE2, CMPF, UMAC ####Testing performed at [place] [id number] Platelet mean volume (Bld) [Entitic vol] 8.8 fL Normal 7.4-11.0 [facility] Comment on above: Performed By: #### U LIV, FX, ACBC, LIP2, FE2, CMPF, UMAC ####Testing performed at [address] [address] Platelets (Bld) [#/Vol] 77 10*3/uL Low 130-400 [facility] Comment on above: Performed By: #### U LIV, FX, ACBC, LIP2, FE2, CMPF, UMAC ####Testing performed at [address] [address] RBC (Bld) [#/Vol] 4.40 10*6/uL Normal 4.0-6.1 [facility] Comment on above: Performed By: #### U LIV, FX, ACBC, LIP2, FE2, CMPF, UMAC ####Testing performed at [address] [address] WBC (Bld) [#/Vol] 3.7 10*3/uL Normal 3.6-11.0 [facility] Comment on above: Performed By: #### U LIV, FX, ACBC, LIP2, FE2, CMPF, UMAC ####Testing performed at [address] [address] CMP FASTINGon 04-09-2024 A:G RATIO 0.9 RATIO Normal [facility] Comment on above: Performed By: #### U LIV, FX, ACBC, LIP2, FE2, CMPF, UMAC #### Testing performed at [address] [address] ALBUMIN 3.3 G/dl Low 3.5-5.0 [facility] Comment on above: Performed By: #### U LIV, FX, ACBC, LIP2, FE2, CMPF, UMAC #### Testing performed at [address] [address] ALP [Catalytic activity/Vol] 101 U/L Normal 38-126 [facility] Comment on above: Performed By: #### U LIV, FX, ACBC, LIP2, FE2, CMPF, UMAC #### Testing performed at [address] [address] ALT [Catalytic activity/Vol] 16 U/L Normal <50 [facility] Comment on above: Performed By: #### U LIV, FX, ACBC, LIP2, FE2, CMPF, UMAC #### Testing performed at [address] [address] AST [Catalytic activity/Vol] 27 U/L Normal 17-59 [facility] Comment on above: Performed By: #### U LIV, FX, ACBC, LIP2, FE2, CMPF, UMAC #### Testing performed at [address] [address] Bilirubin [Mass/Vol] 0.9 mg/dL Normal 0.2-1.3 [facility] Comment on above: Performed By: #### U LIV, FX, ACBC, LIP2, FE2, CMPF, UMAC #### Testing performed at [address] [address] Calcium [Mass/Vol] 8.1 mg/dL Low 8.4-10.2 [facility] Comment on above: Performed By: #### U LIV, FX, ACBC, LIP2, FE2, CMPF, UMAC #### Testing performed at [address] [address] Chloride [Moles/Vol] 103 mmol/L Normal 98-107 [facility] Comment on above: Result Comment: Plea note: Triglyceride levels of 600mg/dL or higher may positively bias chloride results by approximately 2.1 mmol Performed By: #### U LIV, FX, ACBC, LIP2, FE2, CMPF, UMAC #### Testing performed at [address] [address] CO2 [Moles/Vol] 30 mmol/L Normal 22-30 [facility] Comment on above: Performed By: #### U LIV, FX, ACBC, LIP2, FE2, CMPF, UMAC #### Testing performed at [address] [address] Creatinine [Mass/Vol] 1.00 mg/dL Normal 0.70-1.20 [facility] Comment on above: Performed By: #### U LIV, FX, ACBC, LIP2, FE2, CMPF, UMAC #### Testing performed at [address] [address] EST. GFR, 99 ml/min/1.73sq.m [facility] Comment on above: Performed By: #### U LIV, FX, ACBC, LIP2, FE2, CMPF, UMAC #### Testing performed at [address] [address] EST. GFR,Non 82 ml/min/1.73sq.m [facility] Comment on above: Performed By: #### U LIV, FX, ACBC, LIP2, FE2, CMPF, UMAC #### Testing performed at [place] [id number] GFR Information Average GFR for 50-5 9 years old = 93. [facility] Comment on above: Result Comment: Shop Hand kaveh Kidney disease, GFR = <60. Kidney failure, GFR = <15. The GFR estimate is not adjusted for extreme body surface area or acute process, nor has it been validated for women or ethnic groups other than and . Performed By: #### U LIV, FX, ACBC, LIP2, FE2, CMPF, UMAC #### Testing performed at [address] [address] Glucose [Mass/Vol] 126 mg/dL High 70-100 [facility] Comment on above: Result Comment: NORMAL <100 mg/dL PREDIABETES 101-126 mg/dL DIABETES 126 mg/dL or higher Performed By: #### U LIV, FX, ACBC, LIP2, FE2, CMPF, UMAC #### Testing performed at [address] [address] Potassium [Moles/Vol] 4.2 mmol/L Normal 3.5-5.1 [facility] Comment on above: Performed By: #### U LIV, FX, ACBC, LIP2, FE2, CMPF, UMAC #### Testing performed at [address] [address] Protein [Mass/Vol] 7.0 g/dL Normal 6.3-8.2 [facility] Comment on above: Performed By: #### U LIV, FX, ACBC, LIP2, FE2, CMPF, UMAC #### Testing performed at [address] [address] Sodium [Moles/Vol] 136 mmol/L Low 137-145 [facility] Comment on above: Performed By: #### U LIV, FX, ACBC, LIP2, FE2, CMPF, UMAC #### Testing performed at [address] [address] Urea nitrogen [Mass/Vol] 19 mg/dL Normal 7-20 [facility] Comment on above: Performed By: #### U LIV, FX, ACBC, LIP2, FE2, CMPF, UMAC #### Testing performed at [address] [address] FAX REQUESTon 04-09-2024 FAX TO [phone] Normal [facility] Comment on above: Performed By: #### U LIV, FX, ACBC, LIP2, FE2, CMPF, UMAC #### Testing performed at [address] [address] FERRITINon 04-09-2024 Ferritin [Mass/Vol] 67 ng/mL Normal 17.9-464 [facility] Comment on above: Performed By: #### F RTN ####Testing performed at [address] [place] [address] IRONon 04-09-2024 Iron [Mass/Vol] 66 ug/dL Normal 49-181 [facility] Comment on above: Performed By: #### U LIV, FX, ACBC, LIP2, FE2, CMPF, UMAC #### Testing performed at [address] [address] LIPID PROFILEon 04-09-2024 Cholesterol [Mass/Vol] 96 mg/dL Normal [facility] Comment on above: Performed By: #### U LIV, FX, ACBC, LIP2, FE2, CMPF, UMAC #### Testing performed at [address] [address] Cholesterol in HDL [Mass/Vol] 32 mg/dL Normal 26-63 [facility] Comment on above: Performed By: #### U LIV, FX, ACBC, LIP2, FE2, CMPF, UMAC #### Testing performed at [address] [address] Cholesterol in LDL [Mass/Vol] 52 mg/dL Normal <100 [facility] Comment on above: Performed By: #### U LIV, FX, ACBC, LIP2, FE2, CMPF, UMAC #### Testing performed at [address] [address] Cholesterol in VLDL [Mass/Vol] 12 mg/dL Normal 5-25 [facility] Comment on above: Performed By: #### U LIV, FX, ACBC, LIP2, FE2, CMPF, UMAC #### Testing performed at [address] [address] Cholesterol.total/Ch olesterol in HDL [Mass ratio] 3.00 {ratio} Normal [facility] Comment on above: Result Comment: RISK TOTAL/HDL RATIO MEN WOMEN 1/2 AVERAGE 3.43 3.27 AVERAGE 4.97 4.44 2X AVERAGE 9.55 7.05 3X AVERAGE 23.99 11.04 Performed By: #### U LIV, FX, ACBC, LIP2, FE2, CMPF, UMAC #### Testing performed at [address] [address] Triglyceride [Mass/Vol] 60 mg/dL Normal 0-150 [facility] Comment on above: Performed By: #### U LIV, FX, ACBC, LIP2, FE2, CMPF, UMAC #### Testing performed at [address] [address] TSHon 04-09-2024 TSH 1.550 uIU/ML Normal 0.465-4.680 [facility] Comment on above: Performed By: #### T SH2 #### Testing performed at [address] [address] URINE CULTUREon 04-09-2024 Bacteria identified Cx Nom (U) SPECIMEN DESCRIPTION URINE CLEAN CATCH UA DIPSTICK LEUKOCYTE NEGATIVE * Result Note: NITRITE NEGATIVE * CULTURE NO GROWTH 2 DAYS * Result Note: Testing performed at [place] [address] * REPORT STATUS 04/11/2024 * Result Note: FINAL * Normal [facility] Comment on above: Performed By: #### A URNC ####Testing performed at [address] [place] [address]Wgbkljc performed at [address] [address] URINE MACROSCOPICon 04-09-20 24 Bilirubin Ql (U) Negative Normal NEGATIVE [facility] Comment on above: Performed By: #### U LIV, FX, ACBC, LIP2, FE2, CMPF, UMAC #### Testing performed at [address] [address] Clarity (U) CLEAR Normal CLEAR [facility] Comment on above: Performed By: #### U LIV, FX, ACBC, LIP2, FE2, CMPF, UMAC #### Testing performed at [address] [address] Color (U) YELLOW Normal YELLOW [facility] Comment on above: Performed By: #### U LIV, FX, ACBC, LIP2, FE2, CMPF, UMAC #### Testing performed at [address] [address] Glucose Ql (U) Negative Normal NEGATIVE [facility] Comment on above: Performed By: #### U LIV, FX, ACBC, LIP2, FE2, CMPF, UMAC #### Testing performed at [address] [address] pH (U) 7.0 [pH] Normal 5.0-7.0 [facility] Comment on above: Performed By: #### U LIV, FX, ACBC, LIP2, FE2, CMPF, UMAC #### Testing performed at [address] [address] URINE HEMOGLOBIN SMALL Abnormal NEGATIVE [facility] Comment on above: Performed By: #### U LIV, FX, ACBC, LIP2, FE2, CMPF, UMAC #### Testing performed at [address] [address] URINE KETONE Negative Normal NEGATIVE [facility] Comment on above: Performed By: #### U LIV, FX, ACBC, LIP2, FE2, CMPF, UMAC #### Testing performed at [address] [address] URINE LEUKOTEST Negative Normal NEGATIVE [facility] Comment on above: Performed By: #### U LIV, FX, ACBC, LIP2, FE2, CMPF, UMAC #### Testing performed at [address] [address] URINE NITRATES Negative Normal NEGATIVE [facility] Comment on above: Performed By: #### U LIV, FX, ACBC, LIP2, FE2, CMPF, UMAC #### Testing performed at [address] [address] URINE SPEC GRAVITY 1.020 Normal 1.010-1.025 [facility] Comment on above: Performed By: #### U LIV, FX, ACBC, LIP2, FE2, CMPF, UMAC #### Testing performed at [address] [address] URINE TOTAL PROTEIN Negative Normal NEGATIVE [facility] Comment on above: Performed By: #### U LIV, FX, ACBC, LIP2, FE2, CMPF, UMAC #### Testing performed at [address] [address] Urobilinogen Qn (U) 4.0 {Eliseo'U}/dL High 0.2-1.0 [facility] Comment on above: Performed By: #### U LIV, FX, ACBC, LIP2, FE2, CMPF, UMAC #### Testing performed at [address] [address] URINE MICROSCOPICon 04-09-20 24 BACTERIA TRACE Abnormal NEGATIVE [facility] Comment on above: Performed By: #### U LIV, FX, ACBC, LIP2, FE2, CMPF, UMAC ####Testing performed at [address] [address] CASTS NONE Normal NONE [facility] Comment on above: Performed By: #### U LIV, FX, ACBC, LIP2, FE2, CMPF, UMAC ####Testing performed at [address] [address] CRYSTAL NONE Normal NONE [facility] Comment on above: Performed By: #### U LIV, FX, ACBC, LIP2, FE2, CMPF, UMAC ####Testing performed at [address] [address] Epithelial cells LM Ql (Urine sed) 1 TO 5 Normal [facility] Comment on above: Performed By: #### U LIV, FX, ACBC, LIP2, FE2, CMPF, UMAC ####Testing performed at [address] [address] Mucus Ql (Urine sed) Negative Normal NEGATIVE [facility] Comment on above: Performed By: #### U LIV, FX, ACBC, LIP2, FE2, CMPF, UMAC ####Testing performed at [address] [address] URINE COMMENT PHYSICIAN REQUESTED CULTURE Normal [facility] Comment on above: Performed By: #### U LIV, FX, ACBC, LIP2, FE2, CMPF, UMAC ####Testing performed at [address] [address] URINE RBC'S 1 TO 5 Normal NEGATIVE [facility] Comment on above: Performed By: #### U LIV, FX, ACBC, LIP2, FE2, CMPF, UMAC ####Testing performed at [address] [address] URINE WBC'S 1 TO 5 Normal NEGATIVE [facility] Comment on above: Performed By: #### U LIV, FX, ACBC, LIP2, FE2, CMPF, UMAC ####Testing performed at [address] [address] No Panel Informationon 03-15 VENOUS DOPPLER EXTREM/TERRY Invalid Interpretation Code [facility] Work Phone: Comment on above: VENOUS [...] B (Bld) [Mass/Vol] 143 pg/mL High 0-100 [facility] Comment on above: Performed By: #### A CBC, DDIMER, BNP, CMPF, PT ####Testing performed at [address] [address] CBCon 09-19-2023 Basophils/100 WBC (Bld) 0 % Normal 0.0-2.0 [facility] Comment on above: Performed By: #### T SH2 #### Testing performed at [address] [address] DTYPE AUTO DIFF Normal [facility] Comment on above: Performed By: #### T SH2 #### Testing performed at [address] [address] Eosinophils/100 WBC (Bld) 1 % Normal 0.0-11.0 [facility] Comment on above: Performed By: #### T SH2 #### Testing performed at [address] [address] Lymphocytes/100 WBC (Bld) 14 % Low 20.0-55.0 [facility] Comment on above: Performed By: #### T SH2 #### Testing performed at [address] [address] Monocytes/100 WBC (Bld) 7 % Normal 0.0-10.0 [facility] Comment on above: Performed By: #### T SH2 #### Testing performed at [address] [address] Neutrophils/100 WBC (Bld) 78 % High 37.0-75.0 [facility] Comment on above: Performed By: #### T SH2 #### Testing performed at [address] [address] PLATELET COMMENT DECREASED Normal [facility] Comment on above: Performed By: #### T SH2 #### Testing performed at [address] [address] RBC morphology finding Nom (Bld) 1+ Normal [facility] Comment on above: Result Comment: MICR OCYTOSIS 1+ ANISOCYTE Performed By: #### T SH2 #### Testing performed at [address] [address] Erythrocyte distribution width (RBC) [Ratio] 16.9 % High 11.5-14.5 [facility] Comment on above: Performed By: #### T SH2 #### Testing performed at [address] [address] Hematocrit (Bld) [Volume fraction] 34.3 % Low 42.0-52.0 [facility] Comment on above: Performed By: #### T SH2 #### Testing performed at [address] [address] Hemoglobin (Bld) [Mass/Vol] 10.9 g/dL Low 14.0-18.0 [facility] Comment on above: Performed By: #### T SH2 #### Testing performed at [address] [address] MCH (RBC) [Entitic mass] 22.0 pg Low 26.0-35.0 [facility] Comment on above: Performed By: #### T SH2 #### Testing performed at [address] [address] MCHC (RBC) [Mass/Vol] 31.9 g/dL Normal 27.0-37.0 [facility] Comment on above: Performed By: #### T SH2 #### Testing performed at [address] [address] MCV (RBC) [Entitic vol] 69.2 fL Low 80.0-100.0 [facility] Comment on above: Performed By: #### T SH2 #### Testing performed at [address] [address] Platelet mean volume (Bld) [Entitic vol] 8.9 fL Normal 7.4-11.0 [facility] Comment on above: Performed By: #### T SH2 #### Testing performed at [address] [place] [address] Platelets (Bld) [#/Vol] 103 10*3/uL Low 130-400 [facility] Comment on above: Performed By: #### T SH2 #### Testing performed at [address] [place] [address] RBC (Bld) [#/Vol] 4.96 10*6/uL Normal 4.0-6.1 [facility] Comment on above: Performed By: #### T SH2 #### Testing performed at [address] [address] WBC (Bld) [#/Vol] 3.3 10*3/uL Low 3.6-11.0 [facility] Comment on above: Performed By: #### T SH2 #### Testing performed at [address] [place] [address] CMP FASTINGon 09-19-2023 A:G RATIO 0.9 RATIO Normal [facility] Comment on above: Performed By: #### A CBC, DDIMER, BNP, CMPF, PT ####Testing performed at [address] [address] ALBUMIN 3.4 G/dl Low 3.5-5.0 [facility] Comment on above: Performed By: #### A CBC, DDIMER, BNP, CMPF, PT ####Testing performed at [address] [place] [address] ALP [Catalytic activity/Vol] 84 U/L Normal 38-126 [facility] Comment on above: Performed By: #### A CBC, DDIMER, BNP, CMPF, PT ####Testing performed at [address] [place] [address] ALT [Catalytic activity/Vol] 24 U/L Normal <50 [facility] Comment on above: Performed By: #### A CBC, DDIMER, BNP, CMPF, PT ####Testing performed at [address] [place] [address] AST [Catalytic activity/Vol] 32 U/L Normal 17-59 [facility] Comment on above: Performed By: #### A CBC, DDIMER, BNP, CMPF, PT ####Testing performed at [address] [address] Bilirubin [Mass/Vol] 0.9 mg/dL Normal 0.2-1.3 [facility] Comment on above: Performed By: #### A CBC, DDIMER, BNP, CMPF, PT ####Testing performed at [address] [address] Calcium [Mass/Vol] 9.0 mg/dL Normal 8.4-10.2 [facility] Comment on above: Performed By: #### A CBC, DDIMER, BNP, CMPF, PT ####Testing performed at [address] [address] Chloride [Moles/Vol] 100 mmol/L Normal 98-107 [facility] Comment on above: Result Comment: Krystian boyd note: Triglyceride levels of 600mg/dL or higher may positively bias chloride results by approximately 2.1 mmol Performed By: #### A CBC, DDIMER, BNP, CMPF, PT ####Testing performed at [address] [address] CO2 [Moles/Vol] 30 mmol/L Normal 22-30 [facility] Comment on above: Performed By: #### A CBC, DDIMER, BNP, CMPF, PT ####Testing performed at [address] [address] Creatinine [Mass/Vol] 0.60 mg/dL Low 0.70-1.20 [facility] Comment on above: Performed By: #### A CBC, DDIMER, BNP, CMPF, PT ####Testing performed at [address] [address] EST. GFR, 179 ml/min/1.73sq.m [facility] Comment on above: Performed By: #### A CBC, DDIMER, BNP, CMPF, PT ####Testing performed at [address] [address] EST. GFR,Non 148 ml/min/1.73sq.m [facility] Comment on above: Performed By: #### A CBC, DDIMER, BNP, CMPF, PT ####[place] [address] GFR Information Average GFR for 50-5 9 years old = 93. Normal [facility] Comment on above: Result Comment: Shop Hand kaveh Kidney disease, GFR = <60. Kidney failure, GFR = <15. The GFR estimate is not adjusted for extreme body surface area or acute process, nor has it been validated for women or ethnic groups other than and . Performed By: #### A CBC, DDIMER, BNP, CMPF, PT ####[place] [address] Glucose [Mass/Vol] 116 mg/dL High 70-100 [facility] Comment on above: Result Comment: NORMAL <100 mg/dL PREDIABETES 101-126 mg/dL DIABETES 126 mg/dL or higher Performed By: #### A CBC, DDIMER, BNP, CMPF, PT ####Testing performed at [place] [id number] Potassium [Moles/Vol] 4.3 mmol/L Normal 3.5-5.1 [facility] Comment on above: Performed By: #### A CBC, DDIMER, BNP, CMPF, PT ####[place] [address] Protein [Mass/Vol] 7.1 g/dL Normal 6.3-8.2 [facility] Comment on above: Performed By: #### A CBC, DDIMER, BNP, CMPF, PT ####Testing performed at [place] [id number] Sodium [Moles/Vol] 134 mmol/L Low 137-145 [facility] Comment on above: Performed By: #### A CBC, DDIMER, BNP, CMPF, PT ####Testing performed at [place] [address] Urea nitrogen [Mass/Vol] 19 mg/dL Normal 7-20 [facility] Comment on above: Performed By: #### A CBC, DDIMER, BNP, CMPF, PT ####Testing performed at [address] [address] [address] PE STUDYon 09-19-2023 CT PE STUDY [...] adjacent free fluid. Consider ultrasound evaluation. Normal [facility] D DIMERon 09-19-2023 D DIMER 12.91 ??g/ml Critically high <0.50 [facility] Comment on above: Result Comment: If r [...] DDIMER, BNP, CMPF, PT ####Testing performed at [address] [place] [address] LACTATE,BLOODon 09-19-2023 Lactate [Moles/Vol] 2.0 mmol/L Normal 0.7-2.0 [facility] Comment on above: Performed By: #### L ACTAC #### Testing performed at [address] [address] PROTIMEon 09-19-2023 INR Coag (PPP) [Relative time] 1.06 {INR} Normal 0.85-1.10 [facility] Comment on above: Result Comment: 2.0-3.0 THERAPEUTIC RANGE 2.5-3.5 MECHANICAL VALVE RANGE Performed By: #### A CBC, DDIMER, BNP, CMPF, PT ####Testing performed at [address] [address] PT Coag (PPP) [Time] 13.9 s Normal 11.8-14.4 [facility] Comment on above: Performed By: #### A CBC, DDIMER, BNP, CMPF, PT ####Testing performed at [place] [id number] TROPONIN I, HIGH SENSITIVITY on 09-19-2023 TROPONIN I, HIGH SENSITIVITY 16 pg/mL Normal 0-20 [facility] Comment on above: Result Comment: Indeterminant: >12 to 100 pg/mL female >20 to 100 pg/mL male Indicative of myocardial injury. Serial sampling is recommended, a change of greater than or equal to 20 pg/mL is indicative of acute coronary syndrome. Performed By: #### T ROHS ####Testing performed at [address] [address] XR CHEST PA 1 VIEWon 024 XR [...] 2. Resection of distal left clavicle. Normal [facility] No Panel Informationon 08-19 Cecilia Gonzales, YURIDIA [...] Response to treatment: procedure was tolerated well [facility] Glucose (Bld) [Mass/Vol]on 10-12-2022 Glucose [Mass/Vol] 119 mg/dL High 65 - 99 mg/dL [facility] Interpretation and review of laboratory results Abnormal [facility] Glucose [Mass/Vol] 181 mg/dL High 65 - 99 mg/dL [facility] Interpretation and review of laboratory results Abnormal [facility] Glucose [Mass/Vol] 105 mg/dL High 65 - 99 mg/dL [facility] Interpretation and review of laboratory results Abnormal [facility] CBC Auto Differentialon 07-23 Erythrocyte distribution width (RBC) [Entitic vol] 16.1 % High 11.6 - 14.8 % [facility] Hematocrit (Bld) [Volume fraction] 32.0 % Low 41.0 - 53.0 % [facility] Hemoglobin (Bld) [Mass/Vol] 10.1 g/dL Low 13.5 - 17.5 g/dL [facility] Interpretation and review of laboratory results Abnormal [facility] MCH (RBC) [Entitic mass] 22.2 pg Low 26.0 - 34.0 pg [facility] [facility] MCHC (RBC) [Mass/Vol] 31.6 g/dL 31.0 - 37.0 g/dL [facility] MCV (RBC) [Entitic vol] 70.3 fL Low 80.0 - 100.0 fL [facility] Nucleated RBC (Bld) [#/Vol] 0.00 10*3/uL [facility] Nucleated RBC/100 WBC (Bld) [Ratio] 0.0 % [facility] Platelets (Bld) [#/Vol] 101 10*3/uL Low [facility] RBC (Bld) [#/Vol] 4.55 10*6/uL [facility] WBC (Bld) [#/Vol] 2.46 10*3/uL Low [facility] e[facility] CBC and Diff Morphologyon Ovalocytes LM Ql (Bld) Many [facility] Platelets Large Auto Ql (Bld) Few [facility] Polychromasia LM Ql (Bld) Few [facility] RBC morphology finding Nom (Bld) See Comment [facility] Target cells LM Ql (Bld) Few [facility] Comprehensive metabolic 2000 panelOrdered By: Gaby Brambila on 08-10-2023 Albumin [Mass/Vol] 2.7 g/dL Low 3.2 - 5.2 g/dL [facility] ALP [Catalytic activity/Vol] 60 U/L 40 - 150 U/L [facility] ALT [Catalytic activity/Vol] 17 U/L 14 - 65 U/L [facility] Anion gap [Moles/Vol] 8 mmol/L Low 10 - 20 mmol/L [facility] AST [Catalytic activity/Vol] 15 U/L [facility] Bilirubin [Mass/Vol] 0.8 mg/dL 0.0 - 1 .3 mg/dL [facility] Calcium [Mass/Vol] 8.2 mg/dL Low 8.4 - 10. 2 mg/dL [facility] Chloride [Moles/Vol] 107 mmol/L 98 - 10 8 mmol/L [facility] Creatinine [Mass/Vol] 0.61 mg/dL 0.50 - 1.30 mg/dL [facility] GFR/1.73 sq M.predicted CKD-EPI (S/P/Bld) [Vol rate/Area] 112 - PINF [facility] Glucose [Mass/Vol] 96 mg/dL 65 - 99 mg/dL [facility] HCO3 [Moles/Vol] 30 mmol/L 21 - 32 mmol/L [facility] Interpretation and review of laboratory results Abnormal [facility] Potassium [Moles/Vol] 4.1 mmol/L 3.5 - 5.1 mmol/L [facility] Protein [Mass/Vol] 6.6 g/dL 6.0 - 8.0 g/dL [facility] Sodium [Moles/Vol] 141 mmol/L 135 - 145 mmol/L [facility] Urea nitrogen [Mass/Vol] 20 mg/dL 8 - 25 mg/dL [facility] Urea nitrogen/Creatinine [Mass ratio] 32.8 mg/mg High 10.0 - 20.0 [facility] Glucose (Bld) [Mass/Vol]on 10-11-2022 Glucose [Mass/Vol] 110 mg/dL High 65 - 99 mg/dL [facility] Interpretation and review of laboratory results Abnormal [facility] Magnesium Levelon 08-10-2023 Magnesium [Mass/Vol] 2.2 mg/dL 1.6 - 2 .4 mg/dL [facility] Magnesium [Mass/Vol]on 08-10 Interpretation and review of laboratory results Normal [facility] Manual Differential panel (B ld)on 08-10-2023 Basophils (Bld) [#/Vol] 0.00 10*3/uL [facility] Basophils/100 WBC (Bld) 0.0 % [facility] Eosinophils (Bld) [#/Vol] 0.06 10*3/uL [facility] Eosinophils/100 WBC (Bld) 2.6 % [facility] Interpretation and review of laboratory results Abnormal [facility] Lymphocytes (Bld) [#/Vol] 0.43 10*3/uL Low [facility] Lymphocytes/100 WBC (Bld) 17.4 % [facility] Monocytes (Bld) [#/Vol] 0.17 10*3/uL Low [facility] Monocytes/100 WBC (Bld) 7.0 % [facility] Neutrophils (Bld) [#/Vol] 1.80 10*3/uL [facility] Neutrophils/100 WBC (Bld) 73.0 % [facility] Occult Blood Stool Immunoass ay (Alcira, Fariba, Mary Only)Ordered By: Traci Leslie on 08-10-2023 Hemoglobin.gastroint estinal Ql (Stl) Negative Negative for Occult Blood [facility] Interpretation and review of laboratory results Normal [facility] Phosphate [Mass/Vol]on 08-10 Interpretation and review of laboratory results Normal [facility] Phosphoruson 08-10-2023 Phosphate [Mass/Vol] 4.0 mg/dL 2.7 - 4 .5 mg/dL [facility] Glucose (Bld) [Mass/Vol]on 10-09-2022 Glucose [Mass/Vol] 113 mg/dL High 65 - 99 mg/dL [facility] Interpretation and review of laboratory results Abnormal [facility] Glucose [Mass/Vol] 101 mg/dL High 65 - 99 mg/dL [facility] Interpretation and review of laboratory results Abnormal [facility] Glucose [Mass/Vol] 116 mg/dL High 65 - 99 mg/dL [facility] Interpretation and review of laboratory results Abnormal [facility] Wound Aerobic CultureOrdered By: Bentley Leo on 08-08-2023 Bacteria identified Aer cx Nom (Wound) No Growth After 48 Hours [facility] Microscopic observation Gram stain Nom (Wound) Few WBC [facility] Microscopic observation Gram stain Nom (Wound) Moderate RBC [facility] Microscopic observation Gram stain Nom (Wound) No Organisms Seen [facility] Glucose (Bld) [Mass/Vol]on 1 10-08-2022 Glucose [Mass/Vol] 160 mg/dL High 65 - 99 mg/dL [facility] Interpretation and review of laboratory results Abnormal [facility] Glucose [Mass/Vol] 142 mg/dL High 65 - 99 mg/dL [facility] Interpretation and review of laboratory results Abnormal [facility] US Abdomenon 08-07-2023 GE RIS GE RIS [facility] US AbdomenOrdered By: Mari Tolliver on 08-07-2023 [facility] Work Phone: CBC Auto Differentialon 07-22 Basophils (Bld) [#/Vol] 0.00 10*3/uL [facility] Basophils/100 WBC (Bld) 0.0 % [facility] Eosinophils (Bld) [#/Vol] 0.00 10*3/uL [facility] Eosinophils/100 WBC (Bld) 0.0 % [facility] Erythrocyte distribution width (RBC) [Entitic vol] 15.7 % High 11.6 - 14.8 % [facility] Hematocrit (Bld) [Volume fraction] 30.9 % Low 41.0 - 53.0 % [facility] Hemoglobin (Bld) [Mass/Vol] 9.6 g/dL Low 13.5 - 17.5 g/dL [facility] Immature granulocytes (Bld) [#/Vol] 0.01 10*3/uL [facility] Immature granulocytes/100 WBC (Bld) 0.40 % [facility] Interpretation and review of laboratory results Abnormal [facility] Lymphocytes (Bld) [#/Vol] 0.35 10*3/uL Low [facility] Lymphocytes/100 WBC (Bld) 12.9 % [facility] MCH (RBC) [Entitic mass] 21.9 pg Low 26.0 - 34.0 pg [facility] MCHC (RBC) [Mass/Vol] 31.1 g/dL 31.0 - 37.0 g/dL [facility] MCV (RBC) [Entitic vol] 70.5 fL Low 80.0 - 100.0 fL [facility] Monocytes (Bld) [#/Vol] 0.16 10*3/uL Low [facility] Monocytes/100 WBC (Bld) 5.9 % [facility] Neutrophils (Bld) [#/Vol] 2.20 10*3/uL [facility] Neutrophils/100 WBC (Bld) 80.8 % [facility] Nucleated RBC (Bld) [#/Vol] 0.00 10*3/uL [facility] Nucleated RBC/100 WBC (Bld) [Ratio] 0.0 % [facility] Platelets (Bld) [#/Vol] 84 10*3/uL Low [facility] RBC (Bld) [#/Vol] 4.38 10*6/uL Low [facility] WBC (Bld) [#/Vol] 2.72 10*3/uL Low [facility] e[facility] CBC and Diff Morphologyon Dacrocytes LM Ql (Bld) Few [facility] Interpretation and review of laboratory results Abnormal [facility] Ovalocytes LM Ql (Bld) Moderate [facility] Polychromasia LM Ql (Bld) Few [facility] RBC morphology finding Nom (Bld) See Comment [facility] Schistocytes Auto Ql (Bld) Few Abnormal See Comment [facility] Target cells LM Ql (Bld) Many [facility] Comprehensive metabolic 2000 panelOrdered By: Violeta Garcia on 08-06-2023 Albumin [Mass/Vol] 2.7 g/dL Low 3.2 - 5.2 g/dL [facility] ALP [Catalytic activity/Vol] 64 U/L 40 - 150 U/L [facility] ALT [Catalytic activity/Vol] 14 U/L 14 - 65 U/L [facility] Anion gap [Moles/Vol] 8 mmol/L Low 10 - 20 mmol/L [facility] AST [Catalytic activity/Vol] 17 U/L [facility] Bilirubin [Mass/Vol] 0.4 mg/dL 0.0 - 1 .3 mg/dL [facility] Calcium [Mass/Vol] 8.0 mg/dL Low 8.4 - 10. 2 mg/dL [facility] Chloride [Moles/Vol] 107 mmol/L 98 - 10 8 mmol/L [facility] Creatinine [Mass/Vol] 0.60 mg/dL 0.50 - 1.30 mg/dL [facility] GFR/1.73 sq M.predicted CKD-EPI (S/P/Bld) [Vol rate/Area] 113 - PINF [facility] Glucose [Mass/Vol] 127 mg/dL High 65 - 99 mg/dL [facility] HCO3 [Moles/Vol] 29 mmol/L 21 - 32 mmol/L [facility] Interpretation and review of laboratory results Abnormal [facility] Potassium [Moles/Vol] 4.6 mmol/L 3.5 - 5.1 mmol/L [facility] Protein [Mass/Vol] 6.8 g/dL 6.0 - 8.0 g/dL [facility] Sodium [Moles/Vol] 139 mmol/L 135 - 145 mmol/L [facility] Urea nitrogen [Mass/Vol] 17 mg/dL 8 - 25 mg/dL [facility] Urea nitrogen/Creatinine [Mass ratio] 28.3 mg/mg High 10.0 - 20.0 [facility] Glucose (Bld) [Mass/Vol]on 10-07-2022 Glucose [Mass/Vol] 136 mg/dL High 65 - 99 mg/dL [facility] Interpretation and review of laboratory results Abnormal [facility] Glucose [Mass/Vol] 124 mg/dL High 65 - 99 mg/dL [facility] Interpretation and review of laboratory results Abnormal [facility] Glucose [Mass/Vol] 124 mg/dL High 65 - 99 mg/dL [facility] Interpretation and review of laboratory results Abnormal [facility] Magnesium Levelon 08-06-2023 Magnesium [Mass/Vol] 2.1 mg/dL 1.6 - 2 .4 mg/dL [facility] Magnesium [Mass/Vol]on 08-06 Interpretation and review of laboratory results Normal [facility] Phosphate [Mass/Vol]on 08-06 Interpretation and review of laboratory results Normal [facility] Phosphoruson 08-06-2023 Phosphate [Mass/Vol] 3.5 mg/dL 2.7 - 4 .5 mg/dL [facility] US Abdomenon 08-06-2023 Radiology Study observation (narrative) [facility] CBC Auto Differentialon 07-22 Basophils (Bld) [#/Vol] 0.01 10*3/uL [facility] Basophils/100 WBC (Bld) 0.4 % [facility] Eosinophils (Bld) [#/Vol] 0.04 10*3/uL [facility] Eosinophils/100 WBC (Bld) 1.6 % [facility] Erythrocyte distribution width (RBC) [Entitic vol] 15.7 % High 11.6 - 14.8 % [facility] Hematocrit (Bld) [Volume fraction] 30.1 % Low 41.0 - 53.0 % [facility] Hemoglobin (Bld) [Mass/Vol] 9.4 g/dL Low 13.5 - 17.5 g/dL [facility] Immature granulocytes (Bld) [#/Vol] 0.01 10*3/uL [facility] Immature granulocytes/100 WBC (Bld) 0.40 % [facility] Interpretation and review of laboratory results Abnormal [facility] Lymphocytes (Bld) [#/Vol] 0.66 10*3/uL Low [facility] Lymphocytes/100 WBC (Bld) 26.6 % [facility] MCH (RBC) [Entitic mass] 21.9 pg Low 26.0 - 34.0 pg [facility] MCHC (RBC) [Mass/Vol] 31.2 g/dL 31.0 - 37.0 g/dL [facility] MCV (RBC) [Entitic vol] 70.2 fL Low 80.0 - 100.0 fL [facility] Monocytes (Bld) [#/Vol] 0.22 10*3/uL Low [facility] Monocytes/100 WBC (Bld) 8.9 % [facility] Neutrophils (Bld) [#/Vol] 1.54 10*3/uL Low [facility] Neutrophils/100 WBC (Bld) 62.1 % [facility] Nucleated RBC (Bld) [#/Vol] 0.00 10*3/uL [facility] Nucleated RBC/100 WBC (Bld) [Ratio] 0.0 % [facility] Platelets (Bld) [#/Vol] 84 10*3/uL Low [facility] RBC (Bld) [#/Vol] 4.29 10*6/uL Low [facility] WBC (Bld) [#/Vol] 2.48 10*3/uL Low [facility] CBC and Diff Morphologyon Interpretation and review of laboratory results Abnormal [facility] Ovalocytes LM Ql (Bld) Moderate [facility] Polychromasia LM Ql (Bld) Few [facility] RBC morphology finding Nom (Bld) See Comment [facility] Schistocytes Auto Ql (Bld) Few Abnormal See Comment [facility] Target cells LM Ql (Bld) Few [facility] Comprehensive metabolic 2000 panelOrdered By: Debbie Deutsch on 08-05-2023 Albumin [Mass/Vol] 2.6 g/dL Low 3.2 - 5.2 g/dL [facility] ALP [Catalytic activity/Vol] 70 U/L 40 - 150 U/L [facility] ALT [Catalytic activity/Vol] 14 U/L 14 - 65 U/L [facility] Anion gap [Moles/Vol] 9 mmol/L Low 10 - 20 mmol/L [facility] AST [Catalytic activity/Vol] 13 U/L [facility] Bilirubin [Mass/Vol] 0.5 mg/dL 0.0 - 1 .3 mg/dL [facility] Calcium [Mass/Vol] 7.9 mg/dL Low 8.4 - 10. 2 mg/dL [facility] Chloride [Moles/Vol] 107 mmol/L 98 - 10 8 mmol/L [facility] Creatinine [Mass/Vol] 0.75 mg/dL 0.50 - 1.30 mg/dL [facility] GFR/1.73 sq M.predicted CKD-EPI (S/P/Bld) [Vol rate/Area] 105 - PINF [facility] Glucose [Mass/Vol] 110 mg/dL High 65 - 99 mg/dL [facility] HCO3 [Moles/Vol] 27 mmol/L 21 - 32 mmol/L [facility] Interpretation and review of laboratory results Abnormal [facility] Potassium [Moles/Vol] 4.3 mmol/L 3.5 - 5.1 mmol/L [facility] Protein [Mass/Vol] 6.4 g/dL 6.0 - 8.0 g/dL [facility] Sodium [Moles/Vol] 139 mmol/L 135 - 145 mmol/L [facility] Urea nitrogen [Mass/Vol] 21 mg/dL 8 - 25 mg/dL [facility] Urea nitrogen/Creatinine [Mass ratio] 28.0 mg/mg High 10.0 - 20.0 [facility] Glucose (Bld) [Mass/Vol]on 1 10-06-2022 Glucose [Mass/Vol] 98 mg/dL 65 - 99 mg/dL [facility] Interpretation and review of laboratory results Normal [facility] Glucose [Mass/Vol] 102 mg/dL High 65 - 99 mg/dL [facility] Interpretation and review of laboratory results Abnormal [facility] Magnesium Levelon 08-05-2023 Magnesium [Mass/Vol] 2.0 mg/dL 1.6 - 2 .4 mg/dL [facility] Magnesium [Mass/Vol]on 08-05 Interpretation and review of laboratory results Normal [facility] Phosphate [Mass/Vol]on 08-05 Interpretation and review of laboratory results Normal [facility] Phosphoruson 08-05-2023 Phosphate [Mass/Vol] 3.5 mg/dL 2.7 - 4 .5 mg/dL [facility] Reticulocytes panel (Bld)on 08-05-2023 Hemoglobin Auto (Reticulocytes) [Entitic mass] 22.8 PG Low 27.7 - 38.2 PG [facility] Immature reticulocytes (Bld) [#/Vol] 21.9 % High 2.3 - 15.9 % [facility] Interpretation and review of laboratory results Abnormal [facility] Reticulocytes (Bld) [#/Vol] 0.077 10*3/uL [facility] Reticulocytes/100 RBC (Bld) 1.8 % [facility] CBC Auto Differentialon 07-22 Basophils (Bld) [#/Vol] 0.01 10*3/uL [facility] Basophils/100 WBC (Bld) 0.4 % [facility] Eosinophils (Bld) [#/Vol] 0.06 10*3/uL [facility] Eosinophils/100 WBC (Bld) 2.6 % [facility] Erythrocyte distribution width (RBC) [Entitic vol] 15.7 % High 11.6 - 14.8 % [facility] Hematocrit (Bld) [Volume fraction] 30.6 % Low 41.0 - 53.0 % [facility] Hemoglobin (Bld) [Mass/Vol] 9.4 g/dL Low 13.5 - 17.5 g/dL [facility] Immature granulocytes (Bld) [#/Vol] 0.01 10*3/uL [facility] Immature granulocytes/100 WBC (Bld) 0.40 % [facility] Interpretation and review of laboratory results Abnormal [facility] Lymphocytes (Bld) [#/Vol] 0.67 10*3/uL Low [facility] Lymphocytes/100 WBC (Bld) 29.1 % [facility] MCH (RBC) [Entitic mass] 21.5 pg Low 26.0 - 34.0 pg [facility] MCHC (RBC) [Mass/Vol] 30.7 g/dL Low 31.0 - 37.0 g/dL [facility] MCV (RBC) [Entitic vol] 69.9 fL Low 80.0 - 100.0 fL [facility] Monocytes (Bld) [#/Vol] 0.25 10*3/uL Low [facility] Monocytes/100 WBC (Bld) 10.9 % [facility] Neutrophils (Bld) [#/Vol] 1.30 10*3/uL Low [facility] Neutrophils/100 WBC (Bld) 56.6 % [facility] Nucleated RBC (Bld) [#/Vol] 0.00 10*3/uL [facility] Nucleated RBC/100 WBC (Bld) [Ratio] 0.0 % [facility] Platelets (Bld) [#/Vol] 84 10*3/uL Low [facility] RBC (Bld) [#/Vol] 4.38 10*6/uL Low [facility] WBC (Bld) [#/Vol] 2.30 10*3/uL Low [facility] e[facility] CBC and Diff Morphologyon Ovalocytes LM Ql (Bld) Few [facility] RBC morphology finding Nom (Bld) See Comment [facility] Target cells LM Ql (Bld) Moderate [facility] Cobalamin (Vitamin B12) [Mas s/Vol]on 08-04-2023 Interpretation and review of laboratory results Normal [facility] Comprehensive metabolic 2000 panelOrdered By: Joslyn Page on 08-04-2023 Albumin [Mass/Vol] 2.7 g/dL Low 3.2 - 5.2 g/dL [facility] ALP [Catalytic activity/Vol] 65 U/L 40 - 150 U/L [facility] ALT [Catalytic activity/Vol] 15 U/L 14 - 65 U/L [facility] Anion gap [Moles/Vol] 7 mmol/L Low 10 - 20 mmol/L [facility] AST [Catalytic activity/Vol] 13 U/L [facility] Bilirubin [Mass/Vol] 0.5 mg/dL 0.0 - 1 .3 mg/dL [facility] Calcium [Mass/Vol] 8.4 mg/dL 8.4 - 10. 2 mg/dL [facility] Chloride [Moles/Vol] 107 mmol/L 98 - 10 8 mmol/L [facility] Creatinine [Mass/Vol] 0.60 mg/dL 0.50 - 1.30 mg/dL [facility] GFR/1.73 sq M.predicted CKD-EPI (S/P/Bld) [Vol rate/Area] 113 - PINF [facility] Glucose [Mass/Vol] 92 mg/dL 65 - 99 mg/dL [facility] HCO3 [Moles/Vol] 29 mmol/L 21 - 32 mmol/L [facility] Interpretation and review of laboratory results Abnormal [facility] Potassium [Moles/Vol] 4.3 mmol/L 3.5 - 5.1 mmol/L [facility] Protein [Mass/Vol] 6.6 g/dL 6.0 - 8.0 g/dL [facility] Sodium [Moles/Vol] 139 mmol/L 135 - 145 mmol/L [facility] Urea nitrogen [Mass/Vol] 18 mg/dL 8 - 25 mg/dL [facility] Urea nitrogen/Creatinine [Mass ratio] 30.0 mg/mg High 10.0 - 20.0 [facility] Folateon 08-04-2023 Folate [Mass/Vol] 13.0 ng/mL 3.1 - 17.5 ng/mL [facility] Folate [Mass/Vol]on 08-04-20 Interpretation and review of laboratory results Normal [facility] Glucose (Bld) [Mass/Vol]on 10-05-2022 Glucose [Mass/Vol] 143 mg/dL High 65 - 99 mg/dL [facility] Interpretation and review of laboratory results Abnormal [facility] Glucose [Mass/Vol] 140 mg/dL High 65 - 99 mg/dL [facility] Interpretation and review of laboratory results Abnormal [facility] Glucose [Mass/Vol] 123 mg/dL High 65 - 99 mg/dL [facility] Interpretation and review of laboratory results Abnormal [facility] Glucose [Mass/Vol] 93 mg/dL 65 - 99 mg/dL [facility] Interpretation and review of laboratory results Normal [facility] Iron Study with Ferritinon 10-05-2022 Ferritin [Mass/Vol] 33 ng/mL 30 - 400 ng/mL [facility] Interpretation and review of laboratory results Abnormal [facility] Iron [Mass/Vol] 37 ug/dL Low [facility] h Iron binding capacity [Mass/Vol] 273 [facility] Iron saturation [Mass fraction] 14 % Low 20 - 50 % [facility] LDHon 08-04-2023 LDH Lactate to pyruvate reaction [Catalytic activity/Vol] 130 U/L 100 - 250 U/L [facility] LDH Lactate to pyruvate reac tion [Catalytic activity/Vol]on 08-04-2023 Interpretation and review of laboratory results Normal [facility] Magnesium Levelon 08-04-2023 Magnesium [Mass/Vol] 2.0 mg/dL 1.6 - 2 .4 mg/dL [facility] Magnesium [Mass/Vol]on 08-04 Interpretation and review of laboratory results Normal [facility] Phosphate [Mass/Vol]on 08-04 Interpretation and review of laboratory results Normal [facility] Phosphoruson 08-04-2023 Phosphate [Mass/Vol] 4.0 mg/dL 2.7 - 4 .5 mg/dL [facility] Vitamin B12on 08-04-2023 Cobalamin (Vitamin B12) [Mass/Vol] 305 pg/mL 193 - 986 pg/mL [facility] Wound Aerobic CultureOrdered By: Neeru Barroso on 08-04-2023 Bacteria identified Aer cx Nom (Wound) No Growth After 48 Hours [facility] Microscopic observation Gram stain Nom (Wound) Many WBC [facility] Microscopic observation Gram stain Nom (Wound) Positive [facility] Microscopic observation Gram stain Nom (Wound) Moderate RBC [facility] Bacteria identified Cx Nom ( Bld)on 08-03-2023 Interpretation and review of laboratory results Normal [facility] CBC Auto Differentialon 07-22 Basophils (Bld) [#/Vol] 0.01 10*3/uL [facility] Basophils/100 WBC (Bld) 0.3 % [facility] Eosinophils (Bld) [#/Vol] 0.07 10*3/uL [facility] Eosinophils/100 WBC (Bld) 2.1 % [facility] Erythrocyte distribution width (RBC) [Entitic vol] 16.0 % High 11.6 - 14.8 % [facility] Hematocrit (Bld) [Volume fraction] 33.4 % Low 41.0 - 53.0 % [facility] Hemoglobin (Bld) [Mass/Vol] 10.4 g/dL Low 13.5 - 17.5 g/dL [facility] Immature granulocytes (Bld) [#/Vol] 0.01 10*3/uL [facility] Immature granulocytes/100 WBC (Bld) 0.30 % [facility] Interpretation and review of laboratory results Abnormal [facility] Lymphocytes (Bld) [#/Vol] 0.76 10*3/uL Low [facility] Lymphocytes/100 WBC (Bld) 23.0 % [facility] MCH (RBC) [Entitic mass] 21.8 pg Low 26.0 - 34.0 pg [facility] MCHC (RBC) [Mass/Vol] 31.1 g/dL 31.0 - 37.0 g/dL [facility] MCV (RBC) [Entitic vol] 70.2 fL Low 80.0 - 100.0 fL [facility] Monocytes (Bld) [#/Vol] 0.34 10*3/uL [facility] Monocytes/100 WBC (Bld) 10.3 % [facility] Neutrophils (Bld) [#/Vol] 2.12 10*3/uL [facility] Neutrophils/100 WBC (Bld) 64.0 % [facility] Nucleated RBC (Bld) [#/Vol] 0.00 10*3/uL [facility] Nucleated RBC/100 WBC (Bld) [Ratio] 0.0 % [facility] Platelets (Bld) [#/Vol] 104 10*3/uL Low [facility] RBC (Bld) [#/Vol] 4.76 10*6/uL [facility] WBC (Bld) [#/Vol] 3.31 10*3/uL Low [facility] Comprehensive metabolic 2000 panelOrdered By: Jack Vines on 08-03-2023 Albumin [Mass/Vol] 3.0 g/dL Low 3.2 - 5.2 g/dL [facility] ALP [Catalytic activity/Vol] 81 U/L 40 - 150 U/L [facility] ALT [Catalytic activity/Vol] 16 U/L 14 - 65 U/L [facility] Anion gap [Moles/Vol] 7 mmol/L Low 10 - 20 mmol/L [facility] AST [Catalytic activity/Vol] 15 U/L [facility] Bilirubin [Mass/Vol] 0.5 mg/dL 0.0 - 1 .3 mg/dL [facility] Calcium [Mass/Vol] 8.3 mg/dL Low 8.4 - 10. 2 mg/dL [facility] Chloride [Moles/Vol] 105 mmol/L 98 - 10 8 mmol/L [facility] Creatinine [Mass/Vol] 0.60 mg/dL 0.50 - 1.30 mg/dL [facility] GFR/1.73 sq M.predicted CKD-EPI (S/P/Bld) [Vol rate/Area] 113 - PINF [facility] Glucose [Mass/Vol] 97 mg/dL 65 - 99 mg/dL [facility] HCO3 [Moles/Vol] 28 mmol/L 21 - 32 mmol/L [facility] Interpretation and review of laboratory results Abnormal [facility] Potassium [Moles/Vol] 4.1 mmol/L 3.5 - 5.1 mmol/L [facility] Protein [Mass/Vol] 7.4 g/dL 6.0 - 8.0 g/dL [facility] Sodium [Moles/Vol] 136 mmol/L 135 - 145 mmol/L [facility] Urea nitrogen [Mass/Vol] 17 mg/dL 8 - 25 mg/dL [facility] Urea nitrogen/Creatinine [Mass ratio] 28.3 mg/mg High 10.0 - 20.0 [facility] Glucose (Bld) [Mass/Vol]on 10-04-2022 Glucose [Mass/Vol] 134 mg/dL High 65 - 99 mg/dL [facility] Interpretation and review of laboratory results Abnormal [facility] Glucose [Mass/Vol] 118 mg/dL High 65 - 99 mg/dL [facility] Interpretation and review of laboratory results Abnormal [facility] Glucose [Mass/Vol] 117 mg/dL High 65 - 99 mg/dL [facility] Interpretation and review of laboratory results Abnormal [facility] Glucose [Mass/Vol] 93 mg/dL 65 - 99 mg/dL [facility] Interpretation and review of laboratory results Normal [facility] Glucose [Mass/Vol] 155 mg/dL High 65 - 99 mg/dL [facility] Interpretation and review of laboratory results Abnormal [facility] Laboratory - Microbiology an d Antimicrobial susceptibilityon 08-03-2023 Bacteria identified Cx Nom (Bld) No Growth After 5 Days [facility] h Magnesium Levelon 08-03-2023 Magnesium [Mass/Vol] 1.8 mg/dL 1.6 - 2 .4 mg/dL [facility] No Panel Informationon 08-03 Interpretation and review of laboratory results Normal [facility] Phosphoruson 08-03-2023 Phosphate [Mass/Vol] 3.4 mg/dL 2.7 - 4 .5 mg/dL [facility] Wound Aerobic CultureOrdered By: Elodia Ngo on 08-03-2023 Bacteria identified Aer cx Nom (Wound) No Growth After 48 Hours [facility] Microscopic observation Gram stain Nom (Wound) No Organisms Seen [facility] Microscopic observation Gram stain Nom (Wound) Few WBC [facility] CBC Auto Differentialon 07-22 Basophils (Bld) [#/Vol] 0.00 10*3/uL [facility] Basophils/100 WBC (Bld) 0.0 % [facility] Eosinophils (Bld) [#/Vol] 0.06 10*3/uL [facility] Eosinophils/100 WBC (Bld) 2.3 % [facility] Erythrocyte distribution width (RBC) [Entitic vol] 15.6 % High 11.6 - 14.8 % [facility] Hematocrit (Bld) [Volume fraction] 31.4 % Low 41.0 - 53.0 % [facility] Hemoglobin (Bld) [Mass/Vol] 10.0 g/dL Low 13.5 - 17.5 g/dL [facility] Immature granulocytes (Bld) [#/Vol] 0.00 10*3/uL [facility] Immature granulocytes/100 WBC (Bld) 0.00 % [facility] Interpretation and review of laboratory results Abnormal [facility] Lymphocytes (Bld) [#/Vol] 0.65 10*3/uL Low [facility] Lymphocytes/100 WBC (Bld) 24.7 % [facility] MCH (RBC) [Entitic mass] 22.1 pg Low 26.0 - 34.0 pg [facility] MCHC (RBC) [Mass/Vol] 31.8 g/dL 31.0 - 37.0 g/dL [facility] MCV (RBC) [Entitic vol] 69.5 fL Low 80.0 - 100.0 fL [facility] Monocytes (Bld) [#/Vol] 0.22 10*3/uL Low [facility] Monocytes/100 WBC (Bld) 8.4 % [facility] Neutrophils (Bld) [#/Vol] 1.70 10*3/uL [facility] Neutrophils/100 WBC (Bld) 64.6 % [facility] Nucleated RBC (Bld) [#/Vol] 0.00 10*3/uL [facility] Nucleated RBC/100 WBC (Bld) [Ratio] 0.0 % [facility] Platelets (Bld) [#/Vol] 92 10*3/uL Low [facility] RBC (Bld) [#/Vol] 4.52 10*6/uL [facility]alth WBC (Bld) [#/Vol] 2.63 10*3/uL Low [facility] and Diff Morphologyon Ovalocytes LM Ql (Bld) Moderate [facility] RBC morphology finding Nom (Bld) See Comment [facility] Target cells LM Ql (Bld) Few [facility] Comprehensive metabolic 2000 panelOrdered By: Katerin Crum on 08-02-2023 Albumin [Mass/Vol] 2.9 g/dL Low 3.2 - 5.2 g/dL [facility] ALP [Catalytic activity/Vol] 70 U/L 40 - 150 U/L [facility] ALT [Catalytic activity/Vol] 15 U/L 14 - 65 U/L [facility] Anion gap [Moles/Vol] 7 mmol/L Low 10 - 20 mmol/L [facility] AST [Catalytic activity/Vol] 12 U/L [facility] Bilirubin [Mass/Vol] 0.6 mg/dL 0.0 - 1 .3 mg/dL [facility] Calcium [Mass/Vol] 8.5 mg/dL 8.4 - 10. 2 mg/dL [facility] Chloride [Moles/Vol] 106 mmol/L 98 - 10 8 mmol/L [facility] Creatinine [Mass/Vol] 0.62 mg/dL 0.50 - 1.30 mg/dL [facility] GFR/1.73 sq M.predicted CKD-EPI (S/P/Bld) [Vol rate/Area] 111 - PINF [facility] Glucose [Mass/Vol] 92 mg/dL 65 - 99 mg/dL [facility] HCO3 [Moles/Vol] 28 mmol/L 21 - 32 mmol/L [facility] Interpretation and review of laboratory results Abnormal [facility] Potassium [Moles/Vol] 4.4 mmol/L 3.5 - 5.1 mmol/L [facility] Protein [Mass/Vol] 7.0 g/dL 6.0 - 8.0 g/dL [facility] Sodium [Moles/Vol] 137 mmol/L 135 - 145 mmol/L [facility] Urea nitrogen [Mass/Vol] 17 mg/dL 8 - 25 mg/dL [facility] Urea nitrogen/Creatinine [Mass ratio] 27.4 mg/mg High 10.0 - 20.0 [facility] Glucose (Bld) [Mass/Vol]on 10-03-2022 Glucose [Mass/Vol] 125 mg/dL High 65 - 99 mg/dL [facility] Interpretation and review of laboratory results Abnormal [facility] Glucose [Mass/Vol] 181 mg/dL High 65 - 99 mg/dL [facility] Interpretation and review of laboratory results Abnormal [facility] Glucose [Mass/Vol] 127 mg/dL High 65 - 99 mg/dL [facility] Interpretation and review of laboratory results Abnormal [facility] Glucose [Mass/Vol] 104 mg/dL High 65 - 99 mg/dL [facility] Interpretation and review of laboratory results Abnormal [facility] Magnesium Levelon 08-02-2023 Magnesium [Mass/Vol] 2.0 mg/dL 1.6 - 2 .4 mg/dL [facility] Magnesium [Mass/Vol]on 08-02 Interpretation and review of laboratory results Normal [facility] Phosphate [Mass/Vol]on 08-02 Interpretation and review of laboratory results Normal [facility] Phosphoruson 08-02-2023 Phosphate [Mass/Vol] 3.8 mg/dL 2.7 - 4 .5 mg/dL [facility] CBC Auto Differentialon 07-22 Basophils (Bld) [#/Vol] 0.01 10*3/uL [facility] Basophils/100 WBC (Bld) 0.4 % [facility] Eosinophils (Bld) [#/Vol] 0.07 10*3/uL [facility] Eosinophils/100 WBC (Bld) 2.9 % [facility] Erythrocyte distribution width (RBC) [Entitic vol] 15.8 % High 11.6 - 14.8 % [facility] Hematocrit (Bld) [Volume fraction] 30.3 % Low 41.0 - 53.0 % [facility] Hemoglobin (Bld) [Mass/Vol] 9.6 g/dL Low 13.5 - 17.5 g/dL [facility] Immature granulocytes (Bld) [#/Vol] 0.01 10*3/uL [facility] Immature granulocytes/100 WBC (Bld) 0.40 % [facility] Interpretation and review of laboratory results Abnormal [facility] Lymphocytes (Bld) [#/Vol] 0.62 10*3/uL Low [facility] Lymphocytes/100 WBC (Bld) 25.5 % [facility] MCH (RBC) [Entitic mass] 22.2 pg Low 26.0 - 34.0 pg [facility] MCHC (RBC) [Mass/Vol] 31.7 g/dL 31.0 - 37.0 g/dL [facility] MCV (RBC) [Entitic vol] 70.1 fL Low 80.0 - 100.0 fL [facility] Monocytes (Bld) [#/Vol] 0.20 10*3/uL Low [facility] Monocytes/100 WBC (Bld) 8.2 % [facility] Neutrophils (Bld) [#/Vol] 1.52 10*3/uL Low [facility] Neutrophils/100 WBC (Bld) 62.6 % [facility] Nucleated RBC (Bld) [#/Vol] 0.00 10*3/uL [facility] Nucleated RBC/100 WBC (Bld) [Ratio] 0.0 % [facility] Platelets (Bld) [#/Vol] 89 10*3/uL Low [facility] RBC (Bld) [#/Vol] 4.32 10*6/uL Low [facility] ealth WBC (Bld) [#/Vol] 2.43 10*3/uL Low [facility] ealth [facility] CBC and Diff Morphologyon Ovalocytes LM Ql (Bld) Moderate [facility] RBC morphology finding Nom (Bld) See Comment [facility] Target cells LM Ql (Bld) Few [facility] Comprehensive metabolic 2000 panelon 08-01-2023 Albumin [Mass/Vol] 2.6 g/dL Low 3.2 - 5.2 g/dL [facility] ALP [Catalytic activity/Vol] 68 U/L 40 - 150 U/L [facility] ALT [Catalytic activity/Vol] 13 U/L Low 14 - 65 U/L [facility] Anion gap [Moles/Vol] 9 mmol/L Low 10 - 20 mmol/L [facility] AST [Catalytic activity/Vol] 12 U/L [facility] Bilirubin [Mass/Vol] 0.6 mg/dL 0.0 - 1 .3 mg/dL [facility] Calcium [Mass/Vol] 7.9 mg/dL Low 8.4 - 10. 2 mg/dL [facility] Chloride [Moles/Vol] 105 mmol/L 98 - 10 8 mmol/L [facility] Creatinine [Mass/Vol] 0.70 mg/dL 0.50 - 1.30 mg/dL [facility] GFR/1.73 sq M.predicted CKD-EPI (S/P/Bld) [Vol rate/Area] 107 - PINF [facility] Glucose [Mass/Vol] 182 mg/dL High 65 - 99 mg/dL [facility] HCO3 [Moles/Vol] 27 mmol/L 21 - 32 mmol/L [facility] Interpretation and review of laboratory results Abnormal [facility] Potassium [Moles/Vol] 3.9 mmol/L 3.5 - 5.1 mmol/L [facility] Protein [Mass/Vol] 6.7 g/dL 6.0 - 8.0 g/dL [facility] Sodium [Moles/Vol] 137 mmol/L 135 - 145 mmol/L [facility] Urea nitrogen [Mass/Vol] 16 mg/dL 8 - 25 mg/dL [facility] Urea nitrogen/Creatinine [Mass ratio] 22.9 mg/mg High 10.0 - 20.0 [facility] Creatinine [Mass/Vol]on 07-22 GFR/1.73 sq M.predicted CKD-EPI (S/P/Bld) [Vol rate/Area] 111 - PINF [facility] Interpretation and review of laboratory results Normal [facility] Creatinine, serumon 08-01-20 Creatinine [Mass/Vol] 0.63 mg/dL 0.50 - 1.30 mg/dL [facility] Glucose (Bld) [Mass/Vol]on 10-02-2022 Glucose [Mass/Vol] 111 mg/dL High 65 - 99 mg/dL [facility] Interpretation and review of laboratory results Abnormal [facility] Glucose [Mass/Vol] 127 mg/dL High 65 - 99 mg/dL [facility] Interpretation and review of laboratory results Abnormal [facility] Magnesium Levelon 08-01-2023 Magnesium [Mass/Vol] 1.8 mg/dL 1.6 - 2 .4 mg/dL [facility] Magnesium [Mass/Vol]on 08-01 Interpretation and review of laboratory results Normal [facility] Phosphate [Mass/Vol]on 08-01 Interpretation and review of laboratory results Normal [facility] Phosphoruson 08-01-2023 Phosphate [Mass/Vol] 2.8 mg/dL 2.7 - 4 .5 mg/dL [facility] Vancomycin Level, Randomon 10-02-2022 Vancomycin [Mass/Vol] 15.5 mcg/mL [facility] Vancomycin [Mass/Vol]on 07-22 [facility] Wound Aerobic CultureOrdered By: Deonna Queen on 08-01-2023 Bacteria identified Aer cx Nom (Wound) No Growth After 48 Hours [facility] Microscopic observation Gram stain Nom (Wound) Moderate WBC [facility] Microscopic observation Gram stain Nom (Wound) No Organisms Seen [facility] Basic metabolic 2000 panelon 07-31-2023 Anion gap [Moles/Vol] 9 mmol/L Low 10 - 20 mmol/L [facility] Calcium [Mass/Vol] 7.9 mg/dL Low 8.4 - 10. 2 mg/dL [facility] Chloride [Moles/Vol] 107 mmol/L 98 - 10 8 mmol/L [facility] Creatinine [Mass/Vol] 0.70 mg/dL 0.50 - 1.30 mg/dL [facility] GFR/1.73 sq M.predicted CKD-EPI (S/P/Bld) [Vol rate/Area] 107 - PINF [facility] Glucose [Mass/Vol] 135 mg/dL High 65 - 99 mg/dL [facility] HCO3 [Moles/Vol] 27 mmol/L 21 - 32 mmol/L [facility] Interpretation and review of laboratory results Abnormal [facility] Potassium [Moles/Vol] 3.9 mmol/L 3.5 - 5.1 mmol/L [facility] Sodium [Moles/Vol] 139 mmol/L 135 - 145 mmol/L [facility] Urea nitrogen [Mass/Vol] 16 mg/dL 8 - 25 mg/dL [facility] Urea nitrogen/Creatinine [Mass ratio] 22.9 mg/mg High 10.0 - 20.0 [facility] Creatinine [Mass/Vol]on 07-22 GFR/1.73 sq M.predicted CKD-EPI (S/P/Bld) [Vol rate/Area] 107 - PINF [facility] Interpretation and review of laboratory results Normal [facility] Creatinine, serumon 07-31-20 Creatinine [Mass/Vol] 0.71 mg/dL 0.50 - 1.30 mg/dL [facility] Glucose (Bld) [Mass/Vol]on 10-01-2022 Glucose [Mass/Vol] 137 mg/dL High 65 - 99 mg/dL [facility] Interpretation and review of laboratory results Abnormal [facility] Glucose [Mass/Vol] 173 mg/dL High 65 - 99 mg/dL [facility] Interpretation and review of laboratory results Abnormal [facility] Glucose [Mass/Vol] 155 mg/dL High 65 - 99 mg/dL [facility] Interpretation and review of laboratory results Abnormal [facility] Glucose [Mass/Vol] 88 mg/dL 65 - 99 mg/dL [facility] Interpretation and review of laboratory results Normal [facility] Magnesium Levelon 07-31-2023 Magnesium [Mass/Vol] 1.9 mg/dL 1.6 - 2 .4 mg/dL [facility] Magnesium [Mass/Vol]on 07-31 Interpretation and review of laboratory results Normal [facility] Wound Aerobic CultureOrdered By: Deonna Queen on 07-31-2023 Bacteria identified Aer cx Nom (Wound) Moderate Growth Normal Skin Sobeida [facility] Microscopic observation Gram stain Nom (Wound) No Organisms Seen [facility] Microscopic observation Gram stain Nom (Wound) No WBC Seen [facility] Microscopic observation Gram stain Nom (Wound) Rare RBC [facility] CBC Auto Differentialon Basophils (Bld) [#/Vol] 0.01 10*3/uL [facility] Basophils/100 WBC (Bld) 0.4 % [facility] Eosinophils (Bld) [#/Vol] 0.06 10*3/uL [facility] Eosinophils/100 WBC (Bld) 2.3 % [facility] Erythrocyte distribution width (RBC) [Entitic vol] 15.8 % High 11.6 - 14.8 % [facility] Hematocrit (Bld) [Volume fraction] 32.4 % Low 41.0 - 53.0 % [facility] Hemoglobin (Bld) [Mass/Vol] 10.1 g/dL Low 13.5 - 17.5 g/dL [facility] Immature granulocytes (Bld) [#/Vol] 0.01 10*3/uL [facility] Immature granulocytes/100 WBC (Bld) 0.40 % [facility] Interpretation and review of laboratory results Abnormal [facility] Lymphocytes (Bld) [#/Vol] 0.75 10*3/uL Low [facility] Lymphocytes/100 WBC (Bld) 29.3 % [facility] MCH (RBC) [Entitic mass] 21.9 pg Low 26.0 - 34.0 pg [facility] MCHC (RBC) [Mass/Vol] 31.2 g/dL 31.0 - 37.0 g/dL [facility] MCV (RBC) [Entitic vol] 70.1 fL Low 80.0 - 100.0 fL [facility] Monocytes (Bld) [#/Vol] 0.19 10*3/uL Low [facility] Monocytes/100 WBC (Bld) 7.4 % [facility] Neutrophils (Bld) [#/Vol] 1.54 10*3/uL Low [facility] Neutrophils/100 WBC (Bld) 60.2 % [facility] Nucleated RBC (Bld) [#/Vol] 0.00 10*3/uL [facility] Nucleated RBC/100 WBC (Bld) [Ratio] 0.0 % [facility] Platelets (Bld) [#/Vol] 105 10*3/uL Low [facility] RBC (Bld) [#/Vol] 4.62 10*6/uL [facility] ealth WBC (Bld) [#/Vol] 2.56 10*3/uL Low [facility] eah [facility] CBC and Diff Morphologyon Ovalocytes LM Ql (Bld) Moderate [facility] RBC morphology finding Nom (Bld) See Comment [facility] Target cells LM Ql (Bld) Few [facility] CRP [Mass/Vol]on 07-30-2023 Interpretation and review of laboratory results Normal [facility] CRP, Inflammationon 07-30-20 CRP [Mass/Vol] 5.2 mg/L NINF - 10.0 mg/L [facility] CT Knee - right W contrast I Von 07-30-2023 GE RIS GE RIS [facility] CT Knee - right W contrast I VOrdered By: Rodolfo Garcia on 07-30-2023 [facility] Work Phone: ESR Westergren method (Bld) [Velocity]on 07-30-2023 ESR (Bld) [Velocity] 12 mm/h [facility] Interpretation and review of laboratory results Normal [facility] Glucose (Bld) [Mass/Vol]on 1 09-30-2022 Glucose [Mass/Vol] 129 mg/dL High 65 - 99 mg/dL [facility] Interpretation and review of laboratory results Abnormal [facility] Glucose [Mass/Vol] 194 mg/dL High 65 - 99 mg/dL [facility] Interpretation and review of laboratory results Abnormal [facility] Glucose [Mass/Vol] 129 mg/dL High 65 - 99 mg/dL [facility] Interpretation and review of laboratory results Abnormal [facility] Glucose [Mass/Vol] 116 mg/dL High 65 - 99 mg/dL [facility] Interpretation and review of laboratory results Abnormal [facility] HbA1c (Bld) [Mass fraction]O rdered By: Britni Aleman on 07-30-2023 Average glucose Estimated from glycated hemoglobin (Bld) [Mass/Vol] 88 mg/dL 68 - 114 mg/dL [facility] Interpretation and review of laboratory results Normal [facility] Hemoglobin [id number] By: Soco Aleman on 07-30-2023 HbA1c (Bld) [Mass fraction] 4.7 % 4.0 - 5.6 % [facility] MRSA DNA Amplified ProbeOrde red By: Claudia Gross on 07-30-2023 MRSA DNA HERMAN+probe Ql (Unsp spec) Negative Not Detected, MRSA NEGATIVE [facility] MRSA DNA HERMAN+probe Ql (Unsp spec)Ordered By: Claudia Gross on 07-30-2023 Interpretation and review of laboratory results Normal [facility] Magnesiumon 07-30-2023 Magnesium [Mass/Vol] 1.9 mg/dL 1.6 - 2 .4 mg/dL [facility] Magnesium [Mass/Vol]on 07-30 [facility] No Panel Informationon 07-30 [facility] Interpretation and review of laboratory results Normal [facility] Renal function 2000 panelon 07-30-2023 Albumin [Mass/Vol] 2.8 g/dL Low 3.2 - 5.2 g/dL [facility] Anion gap [Moles/Vol] 7 mmol/L Low 10 - 20 mmol/L [facility] Calcium [Mass/Vol] 8.1 mg/dL Low 8.4 - 10. 2 mg/dL [facility] Chloride [Moles/Vol] 105 mmol/L 98 - 10 8 mmol/L [facility] Creatinine [Mass/Vol] 0.67 mg/dL 0.50 - 1.30 mg/dL [facility] GFR/1.73 sq M.predicted CKD-EPI (S/P/Bld) [Vol rate/Area] 109 - PINF [facility] Glucose [Mass/Vol] 94 mg/dL 65 - 99 mg/dL [facility] HCO3 [Moles/Vol] 30 mmol/L 21 - 32 mmol/L [facility] Interpretation and review of laboratory results Abnormal [facility] Phosphate [Mass/Vol] 3.7 mg/dL 2.7 - 4 .5 mg/dL [facility] Potassium [Moles/Vol] 4.1 mmol/L 3.5 - 5.1 mmol/L [facility] Sodium [Moles/Vol] 138 mmol/L 135 - 145 mmol/L [facility] Urea nitrogen [Mass/Vol] 14 mg/dL 8 - 25 mg/dL [facility] Urea nitrogen/Creatinine [Mass ratio] 20.9 mg/mg High 10.0 - 20.0 [facility] TSH DL <= 0.005 mIU/L Qnon 1 09-30-2022 TSH Qn 1.70 m[IU]/L [facility] Basic metabolic 2000 panelon 07-29-2023 Anion gap [Moles/Vol] 7 mmol/L Low 10 - 20 mmol/L [facility] Calcium [Mass/Vol] 8.2 mg/dL Low 8.4 - 10. 2 mg/dL [facility] Chloride [Moles/Vol] 105 mmol/L 98 - 10 8 mmol/L [facility] Creatinine [Mass/Vol] 0.61 mg/dL 0.50 - 1.30 mg/dL [facility] GFR/1.73 sq M.predicted CKD-EPI (S/P/Bld) [Vol rate/Area] 112 - PINF [facility] Glucose [Mass/Vol] 140 mg/dL High 65 - 99 mg/dL [facility] HCO3 [Moles/Vol] 29 mmol/L 21 - 32 mmol/L [facility] Interpretation and review of laboratory results Abnormal [facility] Potassium [Moles/Vol] 3.9 mmol/L 3.5 - 5.1 mmol/L [facility] Sodium [Moles/Vol] 137 mmol/L 135 - 145 mmol/L [facility] Urea nitrogen [Mass/Vol] 15 mg/dL 8 - 25 mg/dL [facility] Urea nitrogen/Creatinine [Mass ratio] 24.6 mg/mg High 10.0 - 20.0 [facility] CBC Auto Differentialon Basophils (Bld) [#/Vol] 0.00 10*3/uL [facility] Basophils/100 WBC (Bld) 0.0 % [facility] Eosinophils (Bld) [#/Vol] 0.03 10*3/uL [facility] Eosinophils/100 WBC (Bld) 1.1 % [facility] Erythrocyte distribution width (RBC) [Entitic vol] 15.8 % High 11.6 - 14.8 % [facility] Hematocrit (Bld) [Volume fraction] 30.8 % Low 41.0 - 53.0 % [facility] Hemoglobin (Bld) [Mass/Vol] 9.7 g/dL Low 13.5 - 17.5 g/dL [facility] Immature granulocytes (Bld) [#/Vol] 0.01 10*3/uL [facility] Immature granulocytes/100 WBC (Bld) 0.40 % [facility] Interpretation and review of laboratory results Abnormal [facility] Lymphocytes (Bld) [#/Vol] 0.49 10*3/uL Low [facility] Lymphocytes/100 WBC (Bld) 17.9 % [facility] MCH (RBC) [Entitic mass] 22.1 pg Low 26.0 - 34.0 pg [facility] MCHC (RBC) [Mass/Vol] 31.5 g/dL 31.0 - 37.0 g/dL [facility] MCV (RBC) [Entitic vol] 70.2 fL Low 80.0 - 100.0 fL [facility] Monocytes (Bld) [#/Vol] 0.22 10*3/uL Low [facility] Monocytes/100 WBC (Bld) 8.0 % [facility] Neutrophils (Bld) [#/Vol] 1.99 10*3/uL [facility] Neutrophils/100 WBC (Bld) 72.6 % [facility] Nucleated RBC (Bld) [#/Vol] 0.00 10*3/uL [facility] Nucleated RBC/100 WBC (Bld) [Ratio] 0.0 % [facility] Platelets (Bld) [#/Vol] 100 10*3/uL Low [facility] RBC (Bld) [#/Vol] 4.39 10*6/uL Low [facility]alth WBC (Bld) [#/Vol] 2.74 10*3/uL Low [facility] eah [facility] CRP [Mass/Vol]on 07-29-2023 Interpretation and review of laboratory results Normal [facility] CRP, Inflammationon 07-29-20 CRP [Mass/Vol] 5.6 mg/L NINF - 10.0 mg/L [facility] CT Knee - right W contrast I Von 07-29-2023 Radiology Study observation (narrative) [facility] ESR Westergren method (Bld) [Velocity]on 07-29-2023 ESR (Bld) [Velocity] 31 mm/h High [facility] Interpretation and review of laboratory results Abnormal [facility] Glucose (Bld) [Mass/Vol]on 1 09-29-2022 Glucose [Mass/Vol] 132 mg/dL High 65 - 99 mg/dL [facility] Interpretation and review of laboratory results Abnormal [facility] Lactate [Moles/Vol]on 2022 Interpretation and review of laboratory results Normal [facility] Lactic Acid, Plasmaon 2022 Lactate [Moles/Vol] 1.5 mmol/L 0.6 - 2. 0 mmol/L [facility] No Panel Informationon 07-29 [facility] Cecilia Gonzales DPM 07/29/2023 11:24 [...] Response to treatment: procedure was tolerated well [facility] Wound Debridementon 07-15-20 Cecilia Gonzales DPM 07/15/2023 [...] Response to treatment: procedure was tolerated well [facility] Panel Informationon 07-08 Cecilia Gonzales DPM [...] Response to treatment: procedure was tolerated well [facility] Panel Informationon 07-01 [facility] Cecilia Gonzales DPM 07/04/2023 2:34 [...] Response to treatment: procedure was tolerated well [facility] Wound Debridementon 07-01-20 Cecilia Gonzales [...] Response to treatment: procedure was tolerated well [facility] XR KNEE RIGHT 2 VIEWS [...] Suggestion of diffuse soft tissue swelling with [id number] joint effusion. IMPRESSION: 1. Suboptimal positioning on the lateral view. 2. Grossly, no acute osseous abnormality. 3. Total knee replacement appears intact. 4. Suggestion of diffuse soft swelling with [id number] joint effusion. [facility] Workstation ID: [id number] Dictated by: KHADAR BETH on TueMay 30, 2023 5:00:22 PM EDT Transcribed by: CARLOS BARRY on TueMay 30, 2023 6:10:49 PM EDT Finalized by: KHADRA BETH on TueMay 30, 2023 6:33:03 PM EDT Normal [facility] Comment on above: Order Comment: Injur y/Trauma [...] TueMay 17, 2023 4:38:31 PM EDT Normal [facility] Comment on above: Order Comment: Injur y/Trauma [...] Use Authorization (EUA) for the qualitative detection [id number] nucleic acid. Normal [facility] Comment on above: Result Comment: Test ing performed at [place] [address] Performed By: #### M TILA Go RENF, LIVR #### [place] [address] SARS-CoV-2 (COVID-19) RNA HERMAN+probe Ql (Unsp spec) Not detected Normal NOT DETECTED [facility] Comment on above: Result Comment: Nega tive [...] ACBC, RENF, LIVR #### [place] [address] NOVEL CORONAVIRUS LAB 1 - NA SOPHARYNGEALon 04-07-2023 NARRATIVE -1 This test was perfor med using isothermal HERMAN and has been approved as Emergency Use Authorization (EUA) for the qualitative detection [id number] nucleic acid. [facility] Comment on above: Testing performed at [place] [address] SARS-CoV-2 (COVID-19) RNA HERMAN+probe Ql (Unsp spec) Not detected NOT DETECTED [facility] Comment on above: Negative results do not [...] patient is critically ill or clinically deteriorating. [facility] WOUND CULTUREon 04-03-2023 WOUND CULTURE SPECIMEN DESCRIPTION [...] * * Result Note: Testing performed at [place] [address] * REPORT STATUS 04/03/2023 * Result Note: [...] LEVEL RESISTANT STREPTOMYCIN HIGH LEVEL RESISTANT Normal [facility] Comment on above: Performed By: #### TILA Gold RENF, LIVR #### [place] [address] MRSA SCREENon 03-31-2023 MRSA DNA HERMAN+probe Ql (Unsp spec) Negative Normal NEGATIVE [facility] Comment on above: Performed By: #### TILA Gold RENF, LIVR #### [place] [address] STAPH AUREUS SCREEN Negative Normal NEGATIVE [facility] Comment on above: Result Comment: TEST ING PERFORMED BY PCR Testing performed at [place] [address] Performed By: #### TILA Gold RENF, LIVR #### [place] [address] BLOOD CULTUREon 03-22-2023 COMMENT LEFT FOREARM [facility] COMMENT LAC [facility] CBCon 03-22-2023 ABSOLUTE BAS 0.0 10*3/uL Normal 0.0-0.2 [facility] Comment on above: Result Comment: Test ing performed at [place] [address] Performed By: #### TILA Gold, WILNER, LIVR #### [place] [address] ABSOLUTE EOS 0.3 10*3/uL Normal 0.0-0.7 [facility] Comment on above: Performed By: #### TILA Gold, WILNER, LIVR #### Testing performed at [address] [address] ABSOLUTE NEUTROPHIL COUNT 1.4 10*3/uL Normal 1.4-6.5 [facility] Comment on above: Performed By: #### Micheal Go, ACBC, RENF, LIVR #### Testing performed at [address] [address] Basophils/100 WBC (Bld) 0.7 % Normal 0.0-2.0 [facility] Comment on above: Performed By: #### Micheal Go, ACBC, RENF, LIVR #### Testing performed at [address] [address] DTYPE AUTO DIFF Normal [facility] Comment on above: Performed By: #### Micheal Go, ACBC, RENF, LIVR #### Testing performed at [address] [address] Eosinophils/100 WBC (Bld) 11.1 % High 0.0-11.0 [facility] Comment on above: Performed By: #### Micheal Go, ACBC, RENF, LIVR #### Testing performed at [address] [address] Lymphocytes (Bld) [#/Vol] 0.7 10*3/uL Low 1.2-3.4 [facility] Comment on above: Performed By: #### Micheal G, ACBC, RENF, LIVR #### Testing performed at [address] [address] Lymphocytes/100 WBC (Bld) 25.1 % Normal 20.0-55.0 [facility] Comment on above: Performed By: #### M G, ACBC, RENF, LIVR #### Testing performed at [address] [address] Monocytes (Bld) [#/Vol] 0.3 10*3/uL Normal 0.0-0.7 [facility] Comment on above: Performed By: #### Micheal G, ACBC, RENF, LIVR #### Testing performed at [address] [address] Monocytes/100 WBC (Bld) 10.0 % Normal 0.0-10.0 [facility] Comment on above: Performed By: #### Micheal Go, TILA, SANDRAF, LIVR #### Testing performed at [place] [id number] Neutrophils/100 WBC (Bld) 53.1 % Normal 37.0-75.0 [facility] Comment on above: Performed By: #### Micheal Go, TILA, SANDRAF, LIVR #### Testing performed at [place] [id number] Erythrocyte distribution width (RBC) [Ratio] 16.4 % High 11.5-14.5 [facility] Comment on above: Performed By: #### Micheal Go, TILA, SANDRAF, LIVR #### [place] [address] Hematocrit (Bld) [Volume fraction] 30.5 % Low 42.0-52.0 [facility] Comment on above: Performed By: #### Micheal Go, TILA, RENF, LIVR #### Testing performed at [place] [id number] Hemoglobin (Bld) [Mass/Vol] 9.8 g/dL Low 14.0-18.0 [facility] Comment on above: Performed By: #### Micheal Go, TILA, RENF, LIVR #### Testing performed at [place] [id number] MCH (RBC) [Entitic mass] 23.0 pg Low 26.0-35.0 [facility] Comment on above: Performed By: #### Micheal Go, LEIDABC, RENF, LIVR #### Testing performed at [place] [id number] MCHC (RBC) [Mass/Vol] 32.2 g/dL Normal 27.0-37.0 [facility] Comment on above: Performed By: #### Micheal Go, ACBC, RENF, LIVR #### Testing performed at [place] [id number] MCV (RBC) [Entitic vol] 71.6 fL Low 80.0-100.0 [facility] Comment on above: Performed By: #### TILA Gold RENF, LIVR #### [place] [address] Platelet mean volume (Bld) [Entitic vol] 8.5 fL Normal 7.4-11.0 [facility] Comment on above: Performed By: #### Micheal Go, TILA, WILNER, LIVR #### [place] [address] Platelets (Bld) [#/Vol] 101 10*3/uL Low 130-400 [facility] Comment on above: Performed By: #### Micheal Go, TILA, WILNER, LIVR #### [place] [address] RBC (Bld) [#/Vol] 4.27 10*6/uL Normal 4.0-6.1 [facility] Comment on above: Performed By: #### Micheal Go, TILA, WILNER, LIVR #### [place] [address] WBC (Bld) [#/Vol] 2.6 10*3/uL Low 3.6-11.0 [facility] Comment on above: Performed By: #### Micheal Go, TILA, WILNER, LIVR #### [place] [address] CBC, EDIF, PLATELETon 2022 ABSOLUTE BASOPHIL COUNT 0.0 10*3/uL 0.0 - 0.2 10*3/uL [facility] Comment on above: Testing performed at [place] [address] Basophils/100 WBC (Bld) 0.7 % 0.0 - 2.0 % [facility] Differential cell count method Nom (Bld) AUTO DIFF % [facility] Eosinophils (Bld) [#/Vol] 0.3 10*3/uL 0.0 - 0.7 10*3/uL [facility] Eosinophils/100 WBC (Bld) 11.1 % High 0.0 - 11.0 % [facility] Erythrocyte distribution width (RBC) [Ratio] 16.4 % High 11.5 - 14.5 % [facility] Hematocrit (Bld) [Volume fraction] 30.5 % Low 42.0 - 52.0 % [facility] Hemoglobin (Bld) [Mass/Vol] 9.8 g/dL Low [facility] Interpretation and review of laboratory results Abnormal [facility] Lymphocytes (Bld) [#/Vol] 0.7 10*3/uL Low 1.2 - 3.4 10*3/uL [facility] Lymphocytes/100 WBC (Bld) 25.1 % 20.0 - 55.0 % [facility] MCH (RBC) [Entitic mass] 23.0 pg Low 26.0 - 35.0 PG [facility] MCHC (RBC) [Mass/Vol] 32.2 g/dL [facility] MCV (RBC) [Entitic vol] 71.6 fL Low [facility] Monocytes (Bld) [#/Vol] 0.3 10*3/uL 0.0 - 0.7 10*3/uL [facility] Monocytes/100 WBC (Bld) 10.0 % 0.0 - 10.0 % [facility] Neutrophils (Bld) [#/Vol] 1.4 10*3/uL 1.4 - 6.5 10*3/uL [facility] Neutrophils/100 WBC (Bld) 53.1 % 37.0 - 75.0 % [facility] Platelet mean volume (Bld) [Entitic vol] 8.5 fL [facility] Platelets (Bld) [#/Vol] 101 10*3/uL Low 130 - 400 10*3/uL [facility] RBC (Bld) [#/Vol] 4.27 10*6/uL 4.0 - 6.1 10*6/uL [facility] WBC (Bld) [#/Vol] 2.6 10*3/uL Low 3.6 - 11.0 10*3/uL [facility] - Microbiology an d Antimicrobial susceptibilityon 03-22-2023 Bacteria identified Cx Nom (Unsp spec) NO GROWTH 5 DAYS [facility] Comment on above: Testing performed at [place] [address] Laboratory - Miscellaneous t estson 03-22-2023 Service comment (Unsp spec) [Interp] 03/22/2023 [facility] Comment on above: FINAL MAGNESIUMon 03-22-2023 Magnesium [Mass/Vol] 2.1 mg/dL Normal 1.6-2.3 [facility] Comment on above: Result Comment: Test ing performed at [place] [address] Performed By: #### M G, ACBC, RENF, LIVR #### [place] [address] Magnesium [Mass/Vol] 2.1 mg/dL [facility] Comment on above: Testing performed at [place] [address] No Panel Informationon 03-22 [facility] SPECIMEN DESCRIPTION PERIPHERAL BLOOD DRAW [facility] RENAL FUNCTION PANELon 03-22 Albumin [Mass/Vol] 3.2 G/dl Low 3.5 - 5.0 G/dl [facility] Calcium [Mass/Vol] 7.9 mg/dL Low [facility] Chloride [Moles/Vol] 103 mmol/L [facility] Comment on above: Please note: Triglyc eride levels of 600mg/dL or higher may positively bias chloride results by approximately 2.1 mmol CO2 [Moles/Vol] 31 mmol/L High [facility] Creatinine [Mass/Vol] 0.70 mg/dL [facility] GFR COMMENT Average GFR for 50-5 9 years old = 93. [facility] Comment on above: Chronic Kidney disea se, GFR = <60. Kidney failure, GFR = <15. The GFR estimate is not adjusted for extreme body surface area or acute process, nor has it been validated for women or ethnic groups other than and . Testing performed at [place] [id number] GFR/1.73 sq M.predicted among blacks MDRD (S/P/Bld) [Vol rate/Area] 150 mL/min/{1.73_m2} ml/min/1.73s q.m [facility] GFR/1.73 sq M.predicted among non-blacks MDRD (S/P/Bld) [Vol rate/Area] 124 mL/min/{1.73_m2} ml/min/1.73s q.m [facility] Glucose post fast [Mass/Vol] 102 mg/dL High [facility] Comment on above: NORMAL <100 mg/dL PREDIABETES 101-126 mg/dL DIABETES 126 mg/dL or higher Interpretation and review of laboratory results Abnormal [facility] Phosphate [Mass/Vol] 3.5 mg/dL [facility] Potassium [Moles/Vol] 4.4 mmol/L [facility] Sodium [Moles/Vol] 137 mmol/L [facility] Urea nitrogen [Mass/Vol] 27 mg/dL High [facility] RENAL PANEL,FASTINGon 2022 ALBUMIN 3.2 G/dl Low 3.5-5.0 [facility] Comment on above: Performed By: #### Micheal Go, TILA, WILNER, LIVR #### Testing performed at [place] [id number] Calcium [Mass/Vol] 7.9 mg/dL Low 8.4-10.2 [facility] Comment on above: Performed By: #### TILA Gold, WILNER, LIVR #### Testing performed at [address] [address] Chloride [Moles/Vol] 103 mmol/L Normal 98-107 [facility] Comment on above: Result Comment: Krystian boyd note: Triglyceride levels of 600mg/dL or higher may positively bias chloride results by approximately 2.1 mmol Performed By: #### Micheal Go, TILA, RENF, LIVR #### Testing performed at [address] [address] CO2 [Moles/Vol] 31 mmol/L High 22-30 [facility] Comment on above: Performed By: #### Micheal Go, TILA, SANDRAF, LIVR #### Testing performed at [address] [address] Creatinine [Mass/Vol] 0.70 mg/dL Normal 0.7-1.2 [facility] Comment on above: Performed By: #### Micheal Go, ACBC, RENF, LIVR #### [place] [address] EST. GFR, 150 ml/min/1.73sq.m [facility] Comment on above: Performed By: #### Micheal Go, ACBC, RENF, LIVR #### [place] [address] EST. GFR,Non 124 ml/min/1.73sq.m [facility] Comment on above: Performed By: #### Micheal Go, ACBC, RENF, LIVR #### [place] [address] GFR Information Average GFR for 50-5 9 years old = 93. Normal [facility] Comment on above: Result Comment: [employer] Kidney disease, GFR = <60. Kidney failure, GFR = <15. The GFR estimate is not adjusted for extreme body surface area or acute process, nor has it been validated for women or ethnic groups other than and . Testing performed at [place] [address] Performed By: #### Micheal Go, LEIDABC, RENF, LIVR #### [place] [address] Glucose [Mass/Vol] 102 mg/dL High 70-100 [facility] Comment on above: Result Comment: NORMAL <100 mg/dL PREDIABETES 101-126 mg/dL DIABETES 126 mg/dL or higher Performed By: #### Micheal Go, ACBC, RENF, LIVR #### [place] [address] PHOSPHOROUS 3.5 MG/DL Normal 2.5-4.5 [facility] Comment on above: Performed By: #### Micheal Go, ACBC, RENF, LIVR #### [place] [address] Potassium [Moles/Vol] 4.4 mmol/L Normal 3.5-5.1 [facility] Comment on above: Performed By: #### M G, ACBC, RENF, LIVR #### [place] [address] Sodium [Moles/Vol] 137 mmol/L Normal 137-145 [facility] Comment on above: Performed By: #### M G, ACBC, RENF, LIVR #### [place] [address] Urea nitrogen [Mass/Vol] 27 mg/dL High 7-20 [facility] Comment on above: Performed By: #### M G, ACBC, RENF, LIVR #### [place] [address] CBCon 03-21-2023 Basophils/100 WBC (Bld) 1 % Normal 0-2.0 [facility] Comment on above: Performed By: #### Micheal G, ACBC, RENF, LIVR #### [place] [address] DTYPE MANUAL DIFF Normal [facility] Comment on above: Performed By: #### Micheal G, ACBC, RENF, LIVR #### [place] [address] Eosinophils/100 WBC (Bld) 5 % Normal 0-7.0 [facility] Comment on above: Performed By: #### M G, ACBC, RENF, LIVR #### [place] [address] Lymphocytes/100 WBC (Bld) 30 % Normal 20.5-51.1 [facility] Comment on above: Performed By: #### M G, ACBC, RENF, LIVR #### [place] [address] Monocytes/100 WBC (Bld) 6 % Normal 1.7-10.0 [facility] Comment on above: Performed By: #### M G, ACBC, RENF, LIVR #### Testing performed at [place] [id number] Neutrophils/100 WBC (Bld) 58 % Normal 42.2-75.2 [facility] Comment on above: Performed By: #### Micheal Go, TILA, SANDRAF, LIVR #### [place] [address] PLATELET COMMENT DECREASED Normal [facility] Comment on above: Result Comment: Test ing performed at [place] [address] Performed By: #### Micheal Go, ACBC, RENF, LIVR #### [place] [address] RBC morphology finding Nom (Bld) 1+ Normal [facility] Comment on above: Result Comment: MICR OCYTOSIS Performed By: #### Micheal Go, TILA, RENF, LIVR #### [place] [address] Erythrocyte distribution width (RBC) [Ratio] 16.4 % High 11.5-14.5 [facility] Comment on above: Performed By: #### Micheal Go, LEIDABC, RENF, LIVR #### [place] [address] Hematocrit (Bld) [Volume fraction] 29.6 % Low 42.0-52.0 [facility] Comment on above: Performed By: #### Micheal Go, ACBC, RENF, LIVR #### [place] [address] Hemoglobin (Bld) [Mass/Vol] 9.6 g/dL Low 14.0-18.0 [facility] Comment on above: Performed By: #### Micheal Go, ACBC, RENF, LIVR #### [place] [address] MCH (RBC) [Entitic mass] 23.0 pg Low 26.0-35.0 [facility] Comment on above: Performed By: #### Micheal Go, ACBC, RENF, LIVR #### [place] [address] MCHC (RBC) [Mass/Vol] 32.3 g/dL Normal 27.0-37.0 [facility] Comment on above: Performed By: #### TILA Gold RENF, PERI #### [place] [address] MCV (RBC) [Entitic vol] 71.2 fL Low 80.0-100.0 [facility] Comment on above: Performed By: #### TILA Godl RENF, LIVR #### [place] [address] Platelet mean volume (Bld) [Entitic vol] 8.1 fL Normal 7.4-11.0 [facility] Comment on above: Result Comment: Test ing performed at [place] [address] Performed By: #### TILA Gold RENF, LIVR #### [place] [address] Platelets (Bld) [#/Vol] 95 10*3/uL Low 130-400 [facility] Comment on above: Performed By: #### TILA Gold RENF, LIVR #### [place] [address] RBC (Bld) [#/Vol] 4.16 10*6/uL Normal 4.0-6.1 [facility] Comment on above: Performed By: #### TILA Gold RENF, LIVR #### [place] [address] WBC (Bld) [#/Vol] 2.4 10*3/uL Low 3.6-11.0 [facility] Comment on above: Performed By: #### TILA Gold RENF, LIVR #### [place] [address] CBC, EDIF, PLATELETon 2022 Basophils/100 WBC (Bld) 1 % 0 - 2.0 % [facility] Differential cell count method Nom (Bld) MANUAL DIFF % [facility] Eosinophils/100 WBC (Bld) 5 % 0 - 7.0 % [facility] Erythrocyte distribution width (RBC) [Ratio] 16.4 % High 11.5 - 14.5 % [facility] Hematocrit (Bld) [Volume fraction] 29.6 % Low 42.0 - 52.0 % [facility] Hemoglobin (Bld) [Mass/Vol] 9.6 g/dL Low [facility] Interpretation and review of laboratory results Abnormal [facility] Lymphocytes/100 WBC (Bld) 30 % 20.5 - 51.1 % [facility] MCH (RBC) [Entitic mass] 23.0 pg Low 26.0 - 35.0 PG [facility] MCHC (RBC) [Mass/Vol] 32.3 g/dL [facility] MCV (RBC) [Entitic vol] 71.2 fL Low [facility] Monocytes/100 WBC (Bld) 6 % 1.7 - 10.0 % [facility] Morphology Julián (Bld) [Interp] 1+ [facility] Comment on above: MICROCYTOSIS Neutrophils/100 WBC (Bld) 58 % 42.2 - 75.2 % [facility] Platelet mean volume (Bld) [Entitic vol] 8.1 fL [facility] Platelet morphology finding Nom (Bld) DECREASED [facility] Comment on above: Testing performed at [place], [place] [address] Platelets (Bld) [#/Vol] 95 10*3/uL Low 130 - 400 10*3/uL [facility] RBC (Bld) [#/Vol] 4.16 10*6/uL 4.0 - 6.1 10*6/uL [facility] WBC (Bld) [#/Vol] 2.4 10*3/uL Low 3.6 - 11.0 10*3/uL [facility] HEPATIC FUNCTION PANELon Albumin [Mass/Vol] 3.2 g/dL [facility] ALP [Catalytic activity/Vol] 91 U/L [facility] ALT [Catalytic activity/Vol] 13 U/L NINF [facility] Comment on above: Testing performed at [place], [place] [address] AST [Catalytic activity/Vol] 26 U/L [facility] Bilirubin [Mass/Vol] 0.9 mg/dL [facility] Bilirubin.direct [Mass/Vol] 0.3 mg/dL [facility] Protein [Mass/Vol] 7.1 g/dL [facility] LIVER PANELon 03-21-2023 Albumin [Mass/Vol] 3.2 g/dL Normal 2.9-5.3 [facility] Comment on above: Performed By: #### Micheal Go, WILNER ADORNO, LIVR #### [place] [address] ALP [Catalytic activity/Vol] 91 U/L Normal 38-126 [facility] Comment on above: Performed By: #### Micheal Go, WILNER ADORNO, LIVR #### [place] [address] ALT [Catalytic activity/Vol] 13 U/L Normal <50 [facility] Comment on above: Result Comment: Test ing performed at [place] [address] Performed By: #### Micheal Go, TILA, WILNER, LIVR #### [place] [address] AST [Catalytic activity/Vol] 26 U/L Normal 17-59 [facility] Comment on above: Performed By: #### Micheal Go, TILA, SANDRAF, LIVR #### Testing performed at [place] [id number] Bilirubin [Mass/Vol] 0.9 mg/dL Normal 0.2-1.3 [facility] Comment on above: Performed By: #### Micheal Go, TILA, RENF, LIVR #### [place] [address] Bilirubin.indirect [Mass/Vol] 0.3 mg/dL Normal 0-0.4 [facility] Comment on above: Performed By: #### Micheal Go, TILA, RENF, LIVR #### [place] [address] Protein [Mass/Vol] 7.1 g/dL Normal 6.3-8.2 [facility] Comment on above: Performed By: #### M G, ACBC, RENF, LIVR #### Testing performed at [facility] [address] [place] [address] MAGNESIUMon 03-21-2023 Magnesium [Mass/Vol] 1.9 mg/dL Normal 1.6-2.3 [facility] Comment on above: Result Comment: Test ing performed at [place] [address] Performed By: #### M G, ACBC, RENF, LIVR #### Testing performed at [facility] [address] [place] [id number] Magnesium [Mass/Vol] 1.9 mg/dL [facility] Comment on above: Testing performed at [place] [address] No Panel Informationon 03-21 Raul Ng RN 03/21/2023 10:07 AM I have discussed the following issues with the ordering Clinician: Dr. Hayden Procedure explained to patient. Anatomical distortion to interfere with placement:no known restriction Arm preference for venous access: Left Arm Patient is alert, cooperative, no distress, appears stated age Patient Teaching: Yes Family Teaching: No [place] Protocol/Time Out Completed under Procedure Documentation PROCEDURE DETAILS: Midline Insertion Procedure Veins evaluated with ultrasound and appropriate vein selected. 1% Lidocaine used to anesthetize insertion site. Using standard sterile technique access was obtained. 3 [place], single lumen Midline placed in L Cephalic [...] not applicable 2. Perform timeout. Yes 3. Juice Weigher: If enter sterile field, uses sterile gown and gloves, cap, mask/eye protection. N/A 4. Prep site with ChloraPrep for 30 sec minimum (if femoral 120 sec minimum). Yes 5. Sterile technique to drape patient from head to toe. Yes During the procedure, did the clinician 1. Maintain a sterile field. Yes 2. Obtain a qualified second cutter IF 3 unsuccessful sticks. (except if emergent); [...] [X] Tray table within reach. Lot number: [id number] Expiration Date: 2023-10-20 Arm circumference: 29 cm Internal length: 11 cm External length: 0 cm [facility] Radiology Study observation (narrative) [facility] RENAL FUNCTION PANELon 03-21 Albumin [Mass/Vol] 3.2 G/dl Low 3.5 - 5.0 G/dl [facility] Calcium [Mass/Vol] 7.5 mg/dL Low [facility] Chloride [Moles/Vol] 101 mmol/L [facility] Comment on above: Please note: Triglyc eride levels of 600mg/dL or higher may positively bias chloride results by approximately 2.1 mmol CO2 [Moles/Vol] 29 mmol/L [facility] Creatinine [Mass/Vol] 0.60 mg/dL Low [facility] GFR COMMENT Average GFR for 50-5 9 years old = 93. [facility] Comment on above: Chronic Kidney disea se, GFR = <60. Kidney failure, GFR = <15. The GFR estimate is not adjusted for extreme body surface area or acute process, nor has it been validated for women or ethnic groups other than and . Testing performed at [place], [place] [address] GFR/1.73 sq M.predicted among blacks MDRD (S/P/Bld) [Vol rate/Area] 179 mL/min/{1.73_m2} ml/min/1.73s q.m [facility] GFR/1.73 sq M.predicted among non-blacks MDRD (S/P/Bld) [Vol rate/Area] 148 mL/min/{1.73_m2} ml/min/1.73s q.m [facility] Glucose post fast [Mass/Vol] 109 mg/dL High [facility] Comment on above: NORMAL <100 mg/dL PREDIABETES 101-126 mg/dL DIABETES 126 mg/dL or higher Interpretation and review of laboratory results Abnormal [facility] Phosphate [Mass/Vol] 3.5 mg/dL [facility] Potassium [Moles/Vol] 4.4 mmol/L [facility] Sodium [Moles/Vol] 135 mmol/L Low [facility] Urea nitrogen [Mass/Vol] 28 mg/dL High [facility] RENAL PANEL,FASTINGon 2022 ALBUMIN 3.2 G/dl Low 3.5-5.0 [facility] Comment on above: Performed By: #### Micheal Go, ACBC, RENF, LIVR #### Testing performed at [address] [address] Calcium [Mass/Vol] 7.5 mg/dL Low 8.4-10.2 [facility] Comment on above: Performed By: #### Micheal Go, ACBC, RENF, LIVR #### Testing performed at [address] [address] Chloride [Moles/Vol] 101 mmol/L Normal 98-107 [facility] Comment on above: Result Comment: Krystian boyd note: Triglyceride levels of 600mg/dL or higher may positively bias chloride results by approximately 2.1 mmol Performed By: #### Micheal Go, ACBC, RENF, LIVR #### Testing performed at [address] [address] CO2 [Moles/Vol] 29 mmol/L Normal 22-30 [facility] Comment on above: Performed By: #### Micheal Go, ACBC, RENF, LIVR #### [place] [address] Creatinine [Mass/Vol] 0.60 mg/dL Low 0.7-1.2 [facility] Comment on above: Performed By: #### Micheal Go, ACBC, RENF, LIVR #### [place] [address] EST. GFR, 179 ml/min/1.73sq.m [facility] Comment on above: Performed By: #### Micheal Go, ACBC, RENF, LIVR #### [place] [address] EST. GFR,Non 148 ml/min/1.73sq.m [facility] Comment on above: Performed By: #### Micheal Go, ACBC, RENF, LIVR #### [place] [address] GFR Information Average GFR for 50-5 9 years old = 93. Normal [facility] Comment on above: Result Comment: Shop Hand kaveh Kidney disease, GFR = <60. Kidney failure, GFR = <15. The GFR estimate is not adjusted for extreme body surface area or acute process, nor has it been validated for women or ethnic groups other than and . Testing performed at [place] [address] Performed By: #### Micheal Go, ACBC, RENF, LIVR #### [place] [address] Glucose [Mass/Vol] 109 mg/dL High 70-100 [facility] Comment on above: Result Comment: NORMAL <100 mg/dL PREDIABETES 101-126 mg/dL DIABETES 126 mg/dL or higher Performed By: #### M Abbi, ACBC, RENF, LIVR #### [place] [address] PHOSPHOROUS 3.5 MG/DL Normal 2.5-4.5 [facility] Comment on above: Performed By: #### Micheal Go, ACBC, RENF, LIVR #### Testing performed at [address] [place] [address] Potassium [Moles/Vol] 4.4 mmol/L Normal 3.5-5.1 [facility] Comment on above: Performed By: #### TILA Gold RENF, LIVR #### Testing performed at [address] [address] Sodium [Moles/Vol] 135 mmol/L Low 137-145 [facility] Comment on above: Performed By: #### TILA Gold RENF, LIVR #### Testing performed at [address] [address] Urea nitrogen [Mass/Vol] 28 mg/dL High 7-20 [facility] Comment on above: Performed By: #### TILA Gold RENF, LIVR #### Testing performed at [address] [address] CBCon 03-20-2023 DTYPE MANUAL DIFF Normal [facility] Comment on above: Performed By: #### WILNER Gold ACBC #### Testing performed at [address] [address] Eosinophils/100 WBC (Bld) 5 % Normal 0-7.0 [facility] Comment on above: Performed By: #### WILNER Gold ACBC #### Testing performed at [address] [address] Lymphocytes/100 WBC (Bld) 38 % Normal 20.5-51.1 [facility] Comment on above: Performed By: #### WILNER Gold ACBC #### Testing performed at [address] [address] Monocytes/100 WBC (Bld) 8 % Normal 1.7-10.0 [facility] Comment on above: Performed By: #### WILNER Gold ACBC #### Testing performed at [address] [place] [address] Neutrophils/100 WBC (Bld) 49 % Normal 42.2-75.2 [facility] Comment on above: Performed By: #### WILNER Gold ACBC #### [place] [address] PLATELET COMMENT DECREASED Normal [facility] Comment on above: Result Comment: Test ing performed at [place] [address] Performed By: #### WILNER Gold ACBC #### [place] [address] RBC morphology finding Nom (Bld) 1+ Normal [facility] Comment on above: Result Comment: MICR OCYTOSIS 1+ POIKILOCYTE Performed By: #### WILNER Gold ACBC #### [place] [address] Erythrocyte distribution width (RBC) [Ratio] 15.9 % High 11.5-14.5 [facility] Comment on above: Performed By: #### WILNER Gold ACBC #### [place] [address] Hematocrit (Bld) [Volume fraction] 30.0 % Low 42.0-52.0 [facility] Comment on above: Performed By: #### WILNER Gold ACBC #### [place] [address] Hemoglobin (Bld) [Mass/Vol] 9.8 g/dL Low 14.0-18.0 [facility] Comment on above: Performed By: #### WILNER Gold ACBC #### [place] [address] MCH (RBC) [Entitic mass] 23.2 pg Low 26.0-35.0 [facility] Comment on above: Performed By: #### WILNER Gold ACBC #### [place] [address] MCHC (RBC) [Mass/Vol] 32.6 g/dL Normal 27.0-37.0 [facility] Comment on above: Performed By: #### WILNER Gold ACBC #### Testing performed at [place] [id number] MCV (RBC) [Entitic vol] 71.0 fL Low 80.0-100.0 [facility] Comment on above: Performed By: #### WILNER Gold ACBC #### [place] [address] Platelet mean volume (Bld) [Entitic vol] 8.5 fL Normal 7.4-11.0 [facility] Comment on above: Result Comment: Test ing performed at [place] [address] Performed By: #### WILNER Gold ACBC #### [place] [address] Platelets (Bld) [#/Vol] 94 10*3/uL Low 130-400 [facility] Comment on above: Performed By: #### WILNER Gold ACBC #### [place] [address] RBC (Bld) [#/Vol] 4.23 10*6/uL Normal 4.0-6.1 [facility] Comment on above: Performed By: #### WILNER Gold ACBC #### [place] [address] WBC (Bld) [#/Vol] 2.1 10*3/uL Low 3.6-11.0 [facility] Comment on above: Performed By: #### WILNER Gold ACBC #### [place] [address] CBC, EDIF, PLATELETon 2022 Differential cell count method Nom (Bld) MANUAL DIFF % [facility] Eosinophils/100 WBC (Bld) 5 % 0 - 7.0 % [facility] Erythrocyte distribution width (RBC) [Ratio] 15.9 % High 11.5 - 14.5 % [facility] Hematocrit (Bld) [Volume fraction] 30.0 % Low 42.0 - 52.0 % [facility] Hemoglobin (Bld) [Mass/Vol] 9.8 g/dL Low [facility] Interpretation and review of laboratory results Abnormal [facility] Lymphocytes/100 WBC (Bld) 38 % 20.5 - 51.1 % [facility] MCH (RBC) [Entitic mass] 23.2 pg Low 26.0 - 35.0 PG [facility] MCHC (RBC) [Mass/Vol] 32.6 g/dL [facility] MCV (RBC) [Entitic vol] 71.0 fL Low [facility] Monocytes/100 WBC (Bld) 8 % 1.7 - 10.0 % [facility] Morphology Julián (Bld) [Interp] 1+ [facility] Comment on above: MICROCYTOSIS 1+ POIKILOCYTE Neutrophils/100 WBC (Bld) 49 % 42.2 - 75.2 % [facility] Platelet mean volume (Bld) [Entitic vol] 8.5 fL [facility] Platelet morphology finding Nom (Bld) DECREASED [facility] Comment on above: Testing performed at [place] [address] Platelets (Bld) [#/Vol] 94 10*3/uL Low 130 - 400 10*3/uL [facility] RBC (Bld) [#/Vol] 4.23 10*6/uL 4.0 - 6.1 10*6/uL [facility] WBC (Bld) [#/Vol] 2.1 10*3/uL Low 3.6 - 11.0 10*3/uL [facility] CULTURE WOUNDon 03-20-2023 Bacteria identified Cx Nom (Unsp spec) NORMAL SKIN SOBEIDA PRESENT [facility] Comment on above: MODERATE GROWTH Testing performed at [place] [address] COMMENT RIGHT FOOT [facility] Microscopic observation Gram stain Nom (Unsp spec) FEW [facility] Comment on above: WBC'S SEEN FEW GRAM POSITIVE COCCI FEW SQUAMOUS EPITHELIAL CELLS Service comment (Unsp spec) [Interp] 03/20/2023 [facility] Comment on above: FINAL SPECIMEN DESCRIPTION RIGHT FOOT [facility] Bacteria identified Cx Nom (Unsp spec) STAPHYLOCOCCUS HAEMOLYTICUS [facility] Comment on above: MODERATE GROWTH ISOLATE IS A PROBABLE SKIN CONTAMINANT Testing performed at [place] [address] COMMENT RIGHT LOWER LEG [facility] Microscopic observation Gram stain Nom (Unsp spec) NO [facility] Comment on above: WBC'S SEEN FEW SQUAMOUS EPITHELIAL CELLS NO ORGANISMS SEEN ORGANISM IDENTIFIED STAPHYLOCOCCUS HAEMOLYTICUS [facility] Service comment (Unsp spec) [Interp] 03/20/2023 [facility] Comment on above: FINAL SPECIMEN DESCRIPTION RIGHT LEG [facility] MAGNESIUMon 03-20-2023 Magnesium [Mass/Vol] 2.0 mg/dL Normal 1.6-2.3 [facility] Comment on above: Result Comment: Test ing performed at [place] [address] Performed By: #### M WILNER Go ACBC #### [place] [address] Magnesium [Mass/Vol] 2.0 mg/dL [facility] Comment on above: Testing performed at [place] [address] No Panel Informationon 03-20 [facility] RENAL FUNCTION PANELon 03-20 Albumin [Mass/Vol] 2.9 G/dl Low 3.5 - 5.0 G/dl [facility] Calcium [Mass/Vol] 7.3 mg/dL Low [facility] Chloride [Moles/Vol] 98 mmol/L [facility] Comment on above: Please note: Triglyc eride levels of 600mg/dL or higher may positively bias chloride results by approximately 2.1 mmol CO2 [Moles/Vol] 33 mmol/L High [facility] Creatinine [Mass/Vol] 0.70 mg/dL [facility] GFR COMMENT Average GFR for 50-5 9 years old = 93. [facility] Comment on above: Chronic Kidney disea se, GFR = <60. Kidney failure, GFR = <15. The GFR estimate is not adjusted for extreme body surface area or acute process, nor has it been validated for women or ethnic groups other than and . Testing performed at [place] [address] GFR/1.73 sq M.predicted among blacks MDRD (S/P/Bld) [Vol rate/Area] 150 mL/min/{1.73_m2} ml/min/1.73s q.m [facility] GFR/1.73 sq M.predicted among non-blacks MDRD (S/P/Bld) [Vol rate/Area] 124 mL/min/{1.73_m2} ml/min/1.73s q.m [facility] Glucose post fast [Mass/Vol] 120 mg/dL High [facility] Comment on above: NORMAL <100 mg/dL PREDIABETES 101-126 mg/dL DIABETES 126 mg/dL or higher Interpretation and review of laboratory results Abnormal [facility] Phosphate [Mass/Vol] 3.2 mg/dL [facility] Potassium [Moles/Vol] 4.3 mmol/L [facility] Sodium [Moles/Vol] 134 mmol/L Low [facility] Urea nitrogen [Mass/Vol] 26 mg/dL High [facility] RENAL PANEL,FASTINGon 2022 ALBUMIN 2.9 G/dl Low 3.5-5.0 [facility] Comment on above: Performed By: #### WILNER Gold ACBC #### Testing performed at [place] [id number] Calcium [Mass/Vol] 7.3 mg/dL Low 8.4-10.2 [facility] Comment on above: Performed By: #### WILNER Gold ACBC #### Testing performed at [address] [address] Chloride [Moles/Vol] 98 mmol/L Normal 98-107 [facility] Comment on above: Result Comment: Krystian boyd note: Triglyceride levels of 600mg/dL or higher may positively bias chloride results by approximately 2.1 mmol Performed By: #### WILNER Gold ACBC #### Testing performed at [address] [address] CO2 [Moles/Vol] 33 mmol/L High 22-30 [facility] Comment on above: Performed By: #### WILNER Gold ACBC #### Testing performed at [address] [address] Creatinine [Mass/Vol] 0.70 mg/dL Normal 0.7-1.2 [facility] Comment on above: Performed By: #### WILNER Gold ACBC #### [place] [address] EST. GFR, 150 ml/min/1.73sq.m [facility] Comment on above: Performed By: #### WILNER Gold ACBC #### [place] [address] EST. GFR,Non 124 ml/min/1.73sq.m [facility] Comment on above: Performed By: #### WILNER Gold ACBC #### [place] [address] GFR Information Average GFR for 50-5 9 years old = 93. Normal [facility] Comment on above: Result Comment: Shop Hand kaveh Kidney disease, GFR = <60. Kidney failure, GFR = <15. The GFR estimate is not adjusted for extreme body surface area or acute process, nor has it been validated for women or ethnic groups other than and . Testing performed at [place] [address] Performed By: #### WILNER Gold ACBC #### [place] [address] Glucose [Mass/Vol] 120 mg/dL High 70-100 [facility] Comment on above: Result Comment: NORMAL <100 mg/dL PREDIABETES 101-126 mg/dL DIABETES 126 mg/dL or higher Performed By: #### WILNER Gold ACBC #### [place] [address] PHOSPHOROUS 3.2 MG/DL Normal 2.5-4.5 [facility] Comment on above: Performed By: #### WILNER Gold ACBC #### [place] [address] Potassium [Moles/Vol] 4.3 mmol/L Normal 3.5-5.1 [facility] Comment on above: Performed By: #### WILNER Gold ACBC #### Testing performed at [facility] [address] [place] [address] Sodium [Moles/Vol] 134 mmol/L Low 137-145 [facility] Comment on above: Performed By: #### WILNER Gold ACBC #### Testing performed at [facility] [address] [place] [address] Urea nitrogen [Mass/Vol] 26 mg/dL High 7-20 [facility] Comment on above: Performed By: #### WILNER Gold ACBC #### [place] [address] WOUND CULTUREon 03-20-2023 WOUND CULTURE SPECIMEN DESCRIPTION [...] * * Result Note: Testing performed at [place] [address] * REPORT STATUS 03/20/2023 * Result Note: FINAL * ORGANISM STAPHYLOCOCCUS HAEMOLYTICUS * Result Note: STAPHYLOCOCCUS HAEMOLYTICUS * METHOD LIV CLINDAMYCIN >=8 RESISTANT ERYTHROMYCIN >=8 RESISTANT GENTAMICIN >=16 RESISTANT PENICILLIN G >=0.5 RESISTANT RIFAMPIN <=0.5 SUSCEPTIBLE TETRACYCLINE >=16 RESISTANT TRIMETH-SULFA >=320 RESISTANT VANCOMYCIN 2 SUSCEPTIBLE LEVOFLOXACIN >=8 RESISTANT OXACILLIN >=4 RESISTANT LINEZOLID 2 SUSCEPTIBLE INDUCIBLE CLINDAMYCIN RESISTANCE NEGATIVE Normal [facility] Comment on above: Performed By: #### TILA Gold RENF, LIVR #### [place] [address] CBCon 03-19-2023 Basophils/100 WBC (Bld) 1 % Normal 0.0-2.0 [facility] Comment on above: Result Comment: WENCESLAO ECTED ON 03/19 AT 0728: PREVIOUSLY REPORTED 0.9 Performed By: #### R ENCathy ACBC, MG #### [place] [address] Eosinophils/100 WBC (Bld) 12 % High 0.0-11.0 [facility] Comment on above: Result Comment: WENCESLAO ECTED ON 03/19 AT 0728: PREVIOUSLY REPORTED 12.2 Performed By: #### R ENF ACBC, MG #### [place] [address] Lymphocytes/100 WBC (Bld) 31 % Normal 20.0-55.0 [facility] Comment on above: Result Comment: WENCESLAO ECTED ON 03/19 AT 0728: PREVIOUSLY REPORTED 31.2 Performed By: #### R ENF ACBC, MG #### [place] [address] Monocytes/100 WBC (Bld) 11 % High 0.0-10.0 [facility] Comment on above: Result Comment: WENCESLAO ECTED ON 03/19 AT 0728: PREVIOUSLY REPORTED 10.9 Performed By: #### R LEIDA SANCHEZBC, MG #### [place] [address] Neutrophils/100 WBC (Bld) 45 % Normal 37.0-75.0 [facility] Comment on above: Result Comment: WENCESLAO ECTED ON 03/19 AT 0728: PREVIOUSLY REPORTED 44.8 Performed By: #### R ENF ACBC, MG #### [place] [address] PLATELET COMMENT DECREASED Normal [facility] Comment on above: Result Comment: Test ing performed at [place] [address] Performed By: #### R ENF ACBC, MG #### [place] [address] RBC morphology finding Nom (Bld) 1+ Normal [facility] Comment on above: Result Comment: MICR OCYTOSIS 1+ HYPOCHROMIA Performed By: #### R ENF ACBC, MG #### [place] [address] ABSOLUTE BAS 0.0 10*3/uL Normal 0.0-0.2 [facility] Comment on above: Result Comment: Test ing performed at [place] [address] Performed By: #### R ENF ACBC, MG #### [place] [address] ABSOLUTE EOS 0.3 10*3/uL Normal 0.0-0.7 [facility] Comment on above: Performed By: #### R ENF ACBC, MG #### [place] [address] ABSOLUTE NEUTROPHIL COUNT 1.2 10*3/uL Low 1.4-6.5 [facility] Comment on above: Performed By: #### R ENCathy ACBC, MG #### [place] [address] DTYPE AUTO DIFF Normal [facility] Comment on above: Performed By: #### R ENF ACBC, MG #### [place] [address] Lymphocytes (Bld) [#/Vol] 0.8 10*3/uL Low 1.2-3.4 [facility] Comment on above: Performed By: #### R ENF ACBC, MG #### [place] [address] Monocytes (Bld) [#/Vol] 0.3 10*3/uL Normal 0.0-0.7 [facility] Comment on above: Performed By: #### R ENF ACBC, MG #### [place] [address] Erythrocyte distribution width (RBC) [Ratio] 16.1 % High 11.5-14.5 [facility] Comment on above: Performed By: #### R ENF ACBC, MG #### [place] [address] Hematocrit (Bld) [Volume fraction] 28.9 % Low 42.0-52.0 [facility] Comment on above: Performed By: #### R ENFLEIDABC, MG #### [place] [address] Hemoglobin (Bld) [Mass/Vol] 9.3 g/dL Low 14.0-18.0 [facility] Comment on above: Performed By: #### R ENF ACBC, MG #### [place] [address] MCH (RBC) [Entitic mass] 23.0 pg Low 26.0-35.0 [facility] Comment on above: Performed By: #### R ENFLEIDABC, MG #### [place] [address] MCHC (RBC) [Mass/Vol] 32.2 g/dL Normal 27.0-37.0 [facility] Comment on above: Performed By: #### R TILA SANCHEZ, MG #### [place] [address] MCV (RBC) [Entitic vol] 71.4 fL Low 80.0-100.0 [facility] Comment on above: Performed By: #### R ENFLEIDABC, MG #### [place] [address] Platelet mean volume (Bld) [Entitic vol] 8.4 fL Normal 7.4-11.0 [facility] Comment on above: Result Comment: Test ing performed at [place] [address] Performed By: #### R ENLEIDA MorganBC, MG #### [place] [address] Platelets (Bld) [#/Vol] 87 10*3/uL Low 130-400 [facility] Comment on above: Performed By: #### R ENF, ACBC, MG #### Testing performed at [address] [address] RBC (Bld) [#/Vol] 4.05 10*6/uL Normal 4.0-6.1 [facility] Comment on above: Performed By: #### R ENF, ACBC, MG #### Testing performed at [place] [id number] WBC (Bld) [#/Vol] 2.6 10*3/uL Low 3.6-11.0 [facility] Comment on above: Performed By: #### R ENF, ACBC, MG #### Testing performed at [place] [id number] CBC, EDIF, PLATELETon 2022 ABSOLUTE BASOPHIL COUNT 0.0 10*3/uL 0.0 - 0.2 10*3/uL [facility] Basophils/100 WBC (Bld) 1 % 0.0 - 2.0 % [facility] Comment on above: CORRECTED ON 03/19 A T 07: PREVIOUSLY REPORTED 0.9 Differential cell count method Nom (Bld) AUTO DIFF % [facility] Eosinophils (Bld) [#/Vol] 0.3 10*3/uL 0.0 - 0.7 10*3/uL [facility] Eosinophils/100 WBC (Bld) 12 % High 0.0 - 11.0 % [facility] Comment on above: CORRECTED ON 03/19 A T 07: PREVIOUSLY REPORTED 12.2 Erythrocyte distribution width (RBC) [Ratio] 16.1 % High 11.5 - 14.5 % [facility] Hematocrit (Bld) [Volume fraction] 28.9 % Low 42.0 - 52.0 % [facility] Hemoglobin (Bld) [Mass/Vol] 9.3 g/dL Low [facility] Interpretation and review of laboratory results Abnormal [facility] Lymphocytes (Bld) [#/Vol] 0.8 10*3/uL Low 1.2 - 3.4 10*3/uL [facility] Lymphocytes/100 WBC (Bld) 31 % 20.0 - 55.0 % [facility] Comment on above: CORRECTED ON 03/19 A T 0728: PREVIOUSLY REPORTED 31.2 MCH (RBC) [Entitic mass] 23.0 pg Low 26.0 - 35.0 PG [facility] MCHC (RBC) [Mass/Vol] 32.2 g/dL [facility] MCV (RBC) [Entitic vol] 71.4 fL Low [facility] Monocytes (Bld) [#/Vol] 0.3 10*3/uL 0.0 - 0.7 10*3/uL [facility] Monocytes/100 WBC (Bld) 11 % High 0.0 - 10.0 % [facility] Comment on above: CORRECTED ON 03/19 A T 07: PREVIOUSLY REPORTED 10.9 Morphology Julián (Bld) [Interp] 1+ [facility] Comment on above: MICROCYTOSIS 1+ HYPOCHROMIA Neutrophils (Bld) [#/Vol] 1.2 10*3/uL Low 1.4 - 6.5 10*3/uL [facility] Neutrophils/100 WBC (Bld) 45 % 37.0 - 75.0 % [facility] Comment on above: CORRECTED ON 03/19 A T 07: PREVIOUSLY REPORTED 44.8 Platelet mean volume (Bld) [Entitic vol] 8.4 fL [facility] Platelet morphology finding Nom (Bld) DECREASED [facility] Comment on above: Testing performed at [place] [address] Platelets (Bld) [#/Vol] 87 10*3/uL Low 130 - 400 10*3/uL [facility] RBC (Bld) [#/Vol] 4.05 10*6/uL 4.0 - 6.1 10*6/uL [facility] WBC (Bld) [#/Vol] 2.6 10*3/uL Low 3.6 - 11.0 10*3/uL [facility] MAGNESIUMon 03-19-2023 Magnesium [Mass/Vol] 1.9 mg/dL Normal 1.6-2.3 [facility] Comment on above: Result Comment: Test ing performed at [place], [place] [address] Performed By: #### R ENF, ACBC, MG #### Testing performed at [place] [id number] Magnesium [Mass/Vol] 1.9 mg/dL [facility] Comment on above: Testing performed at [place], [place] [address] No Panel Informationon 03-19 [facility] RENAL FUNCTION PANELon 03-19 Albumin [Mass/Vol] 2.8 G/dl Low 3.5 - 5.0 G/dl [facility] Calcium [Mass/Vol] 7.4 mg/dL Low [facility] Chloride [Moles/Vol] 99 mmol/L [facility] Comment on above: Please note: Triglyc eride levels of 600mg/dL or higher may positively bias chloride results by approximately 2.1 mmol CO2 [Moles/Vol] 33 mmol/L High [facility] Creatinine [Mass/Vol] 0.70 mg/dL [facility] GFR COMMENT Average GFR for 50-5 9 years old = 93. [facility] Comment on above: Chronic Kidney disea se, GFR = <60. Kidney failure, GFR = <15. The GFR estimate is not adjusted for extreme body surface area or acute process, nor has it been validated for women or ethnic groups other than and . Testing performed at [place], [place] [address] GFR/1.73 sq M.predicted among blacks MDRD (S/P/Bld) [Vol rate/Area] 150 mL/min/{1.73_m2} ml/min/1.73s q.m [facility] GFR/1.73 sq M.predicted among non-blacks MDRD (S/P/Bld) [Vol rate/Area] 124 mL/min/{1.73_m2} ml/min/1.73s q.m [facility] Glucose post fast [Mass/Vol] 103 mg/dL High [facility] Comment on above: NORMAL <100 mg/dL PREDIABETES 101-126 mg/dL DIABETES 126 mg/dL or higher Interpretation and review of laboratory results Abnormal [facility] Phosphate [Mass/Vol] 3.3 mg/dL [facility] Potassium [Moles/Vol] 4.1 mmol/L [facility] Sodium [Moles/Vol] 135 mmol/L Low [facility] Urea nitrogen [Mass/Vol] 25 mg/dL High [facility] RENAL PANEL,FASTINGon 2022 ALBUMIN 2.8 G/dl Low 3.5-5.0 [facility] Comment on above: Performed By: #### R ENF ACBC, MG #### [place] [address] Calcium [Mass/Vol] 7.4 mg/dL Low 8.4-10.2 [facility] Comment on above: Performed By: #### R ENF, ACBC, MG #### [place] [address] Chloride [Moles/Vol] 99 mmol/L Normal 98-107 [facility] Comment on above: Result Comment: Krystian boyd note: Triglyceride levels of 600mg/dL or higher may positively bias chloride results by approximately 2.1 mmol Performed By: #### R ENF ACBC, MG #### [place] [address] CO2 [Moles/Vol] 33 mmol/L High 22-30 [facility] Comment on above: Performed By: #### R ENF ACBC, MG #### [place] [address] Creatinine [Mass/Vol] 0.70 mg/dL Normal 0.7-1.2 [facility] Comment on above: Performed By: #### R ENF ACBC, MG #### Testing performed at [place] [id number] EST. GFR, 150 ml/min/1.73sq.m [facility] Comment on above: Performed By: #### R ENF, ACBC, MG #### [place] [address] EST. GFR,Non 124 ml/min/1.73sq.m [facility] Comment on above: Performed By: #### R ENF, ACBC, MG #### Testing performed at [facility] [place] [facility] [address] [place] [address] GFR Information Average GFR for 50-5 9 years old = 93. Normal [facility] Comment on above: Result Comment: Shop Hand kaveh Kidney disease, GFR = <60. Kidney failure, GFR = <15. The GFR estimate is not adjusted for extreme body surface area or acute process, nor has it been validated for women or ethnic groups other than and . Testing performed at [place] [address] Performed By: #### R ENLEIDA MorganBC, MG #### [place] [address] Glucose [Mass/Vol] 103 mg/dL High 70-100 [facility] Comment on above: Result Comment: NORMAL <100 mg/dL PREDIABETES 101-126 mg/dL DIABETES 126 mg/dL or higher Performed By: #### R ENLEIDA MorganBC, MG #### [place] [address] PHOSPHOROUS 3.3 MG/DL Normal 2.5-4.5 [facility] Comment on above: Performed By: #### R ENFLEIDABC, MG #### [place] [address] Potassium [Moles/Vol] 4.1 mmol/L Normal 3.5-5.1 [facility] Comment on above: Performed By: #### R ENFLEIDABC, MG #### [place] [address] Sodium [Moles/Vol] 135 mmol/L Low 137-145 [facility] Comment on above: Performed By: #### R ENF ACBC, MG #### [place] [address] Urea nitrogen [Mass/Vol] 25 mg/dL High 7-20 [facility] Comment on above: Performed By: #### R ENF ACBC, MG #### Testing performed at [place] [id number] CBCon 03-18-2023 Basophils/100 WBC (Bld) 1 % Normal 0.0-2.0 [facility] Comment on above: Performed By: #### M G, ACBC, RENF, LIVR #### [place] [address] DTYPE AUTO DIFF Normal [facility] Comment on above: Performed By: #### M G, ACBC, RENF, LIVR #### [place] [address] Eosinophils/100 WBC (Bld) 10 % Normal 0.0-11.0 [facility] Comment on above: Performed By: #### M G, ACBC, RENF, LIVR #### [place] [address] Lymphocytes/100 WBC (Bld) 27 % Normal 20.0-55.0 [facility] Comment on above: Performed By: #### M G, ACBC, RENF, LIVR #### [place] [address] Monocytes/100 WBC (Bld) 10 % Normal 0.0-10.0 [facility] Comment on above: Performed By: #### Micheal Go, ACBC, RENF, LIVR #### [place] [address] Neutrophils/100 WBC (Bld) 52 % Normal 37.0-75.0 [facility] Comment on above: Performed By: #### Micheal G, ACBC, RENF, LIVR #### [place] [address] PLATELET COMMENT DECREASED Normal [facility] Comment on above: Result Comment: Test ing performed at [place] [address] Performed By: #### M G, ACBC, RENF, LIVR #### [place] [address] RBC morphology finding Nom (Bld) 1+ Normal [facility] Comment on above: Result Comment: MICR OCYTOSIS 1+ TARGET CELLS Performed By: #### M G, ACBC, RENF, LIVR #### [place] [address] Erythrocyte distribution width (RBC) [Ratio] 16.4 % High 11.5-14.5 [facility] Comment on above: Performed By: #### TILA Gold RENF, LIVR #### [place] [address] Hematocrit (Bld) [Volume fraction] 30.5 % Low 42.0-52.0 [facility] Comment on above: Performed By: #### Micheal Go, WILNER ADORNO, LIVR #### [place] [address] Hemoglobin (Bld) [Mass/Vol] 9.9 g/dL Low 14.0-18.0 [facility] Comment on above: Performed By: #### Micheal Go, WILNER ADORNO, LIVR #### [place] [address] MCH (RBC) [Entitic mass] 23.0 pg Low 26.0-35.0 [facility] Comment on above: Performed By: #### Micheal Go, WILNER ADORNO, LIVR #### [place] [address] MCHC (RBC) [Mass/Vol] 32.4 g/dL Normal 27.0-37.0 [facility] Comment on above: Performed By: #### Micheal Go, WILNER ADORNO, LIVR #### [place] [address] MCV (RBC) [Entitic vol] 71.1 fL Low 80.0-100.0 [facility] Comment on above: Performed By: #### TILA Gold RENF, LIVR #### [place] [address] Platelet mean volume (Bld) [Entitic vol] 8.3 fL Normal 7.4-11.0 [facility] Comment on above: Result Comment: Test ing performed at [place] [address] Performed By: #### Micheal Go, ACMASOOD, RENF, LIVR #### [place] [address] Platelets (Bld) [#/Vol] 81 10*3/uL Low 130-400 [facility] Comment on above: Performed By: #### Micheal Go, ACBC, RENF, LIVR #### [place] [address] RBC (Bld) [#/Vol] 4.29 10*6/uL Normal 4.0-6.1 [facility] Comment on above: Performed By: #### Micheal Go, TILA, WILNER, LIVR #### [place] [address] WBC (Bld) [#/Vol] 2.5 10*3/uL Low 3.6-11.0 [facility] Comment on above: Performed By: #### Micheal Go, TILA, SANDRAF, LIVR #### [place] [address] CBC, EDIF, PLATELETon 2022 Basophils/100 WBC (Bld) 1 % 0.0 - 2.0 % [facility] Differential cell count method Nom (Bld) AUTO DIFF % [facility] Eosinophils/100 WBC (Bld) 10 % 0.0 - 11.0 % [facility] Erythrocyte distribution width (RBC) [Ratio] 16.4 % High 11.5 - 14.5 % [facility] Hematocrit (Bld) [Volume fraction] 30.5 % Low 42.0 - 52.0 % [facility] Hemoglobin (Bld) [Mass/Vol] 9.9 g/dL Low [facility] Interpretation and review of laboratory results Abnormal [facility] Lymphocytes/100 WBC (Bld) 27 % 20.0 - 55.0 % [facility] MCH (RBC) [Entitic mass] 23.0 pg Low 26.0 - 35.0 PG [facility] MCHC (RBC) [Mass/Vol] 32.4 g/dL [facility] MCV (RBC) [Entitic vol] 71.1 fL Low [facility] Monocytes/100 WBC (Bld) 10 % 0.0 - 10.0 % [facility] Morphology Julián (Bld) [Interp] 1+ [facility] Comment on above: MICROCYTOSIS 1+ TARGET CELLS Neutrophils/100 WBC (Bld) 52 % 37.0 - 75.0 % [facility] Platelet mean volume (Bld) [Entitic vol] 8.3 fL [facility] Platelet morphology finding Nom (Bld) DECREASED [facility] Comment on above: Testing performed at [place] [address] Platelets (Bld) [#/Vol] 81 10*3/uL Low 130 - 400 10*3/uL [facility] RBC (Bld) [#/Vol] 4.29 10*6/uL 4.0 - 6.1 10*6/uL [facility] WBC (Bld) [#/Vol] 2.5 10*3/uL Low 3.6 - 11.0 10*3/uL [facility] MAGNESIUMon 03-18-2023 Magnesium [Mass/Vol] 1.8 mg/dL Normal 1.6-2.3 [facility] Comment on above: Result Comment: Test ing performed at [place] [address] Performed By: #### M Abbi, TILA, WILNER, LIVR #### [place] [address] Magnesium [Mass/Vol] 1.8 mg/dL [facility] Comment on above: Testing performed at [place] [address] No Panel Informationon 03-18 [facility] RENAL FUNCTION PANELon 03-18 Albumin [Mass/Vol] 2.9 G/dl Low 3.5 - 5.0 G/dl [facility] Calcium [Mass/Vol] 7.4 mg/dL Low [facility] Chloride [Moles/Vol] 97 mmol/L Low [facility] Comment on above: Please note: Triglyc eride levels of 600mg/dL or higher may positively bias chloride results by approximately 2.1 mmol CO2 [Moles/Vol] 31 mmol/L High [facility] Creatinine [Mass/Vol] 0.70 mg/dL [facility] GFR COMMENT Average GFR for 50-5 9 years old = 93. [facility] Comment on above: Chronic Kidney disea se, GFR = <60. Kidney failure, GFR = <15. The GFR estimate is not adjusted for extreme body surface area or acute process, nor has it been validated for women or ethnic groups other than and . Testing performed at [place], [place] [address] GFR/1.73 sq M.predicted among blacks MDRD (S/P/Bld) [Vol rate/Area] 150 mL/min/{1.73_m2} ml/min/1.73s q.m [facility] GFR/1.73 sq M.predicted among non-blacks MDRD (S/P/Bld) [Vol rate/Area] 124 mL/min/{1.73_m2} ml/min/1.73s q.m [facility] Glucose post fast [Mass/Vol] 97 mg/dL [facility] Comment on above: NORMAL <100 mg/dL PREDIABETES 101-126 mg/dL DIABETES 126 mg/dL or higher Interpretation and review of laboratory results Abnormal [facility] Phosphate [Mass/Vol] 4.0 mg/dL [facility] Potassium [Moles/Vol] 4.0 mmol/L [facility] Sodium [Moles/Vol] 134 mmol/L Low [facility] Urea nitrogen [Mass/Vol] 22 mg/dL High [facility] RENAL PANEL,FASTINGon 2022 ALBUMIN 2.9 G/dl Low 3.5-5.0 [facility] Comment on above: Performed By: #### Micheal Go, ACBC, RENF, LIVR #### Testing performed at [address] [address] Calcium [Mass/Vol] 7.4 mg/dL Low 8.4-10.2 [facility] Comment on above: Performed By: #### Micheal Go, ACBC, RENF, LIVR #### Testing performed at [address] [address] Chloride [Moles/Vol] 97 mmol/L Low 98-107 [facility] Comment on above: Result Comment: Plea se note: Triglyceride levels of 600mg/dL or higher may positively bias chloride results by approximately 2.1 mmol Performed By: #### Micheal Go, WILNER ADORNO, LIVR #### [place] [address] CO2 [Moles/Vol] 31 mmol/L High 22-30 [facility] Comment on above: Performed By: #### Micheal Go, TILA, SANDRAF, LIVR #### [place] [address] Creatinine [Mass/Vol] 0.70 mg/dL Normal 0.7-1.2 [facility] Comment on above: Performed By: #### Micheal Go, TILA, WILNER, LIVR #### [place] [address] EST. GFR, 150 ml/min/1.73sq.m [facility] Comment on above: Performed By: #### Micheal Go, TILA, SANDRAF, LIVR #### [place] [address] EST. GFR,Non 124 ml/min/1.73sq.m [facility] Comment on above: Performed By: #### Micheal Go, TILA, RENF, LIVR #### [place] [address] GFR Information Average GFR for 50-5 9 years old = 93. Normal [facility] Comment on above: Result Comment: [employer] Kidney disease, GFR = <60. Kidney failure, GFR = <15. The GFR estimate is not adjusted for extreme body surface area or acute process, nor has it been validated for women or ethnic groups other than and . Testing performed at [place] [address] Performed By: #### Micheal Go, TILA, RENF, LIVR #### [place] [address] Glucose [Mass/Vol] 97 mg/dL Normal 70-100 [facility] Comment on above: Result Comment: NORMAL <100 mg/dL PREDIABETES 101-126 mg/dL DIABETES 126 mg/dL or higher Performed By: #### Micheal Go, TILA, WILNER, LIVR #### [place] [address] PHOSPHOROUS 4.0 MG/DL Normal 2.5-4.5 [facility] Comment on above: Performed By: #### Micheal Go, TILA, WILNER, LIVR #### Testing performed at [place] [id number] Potassium [Moles/Vol] 4.0 mmol/L Normal 3.5-5.1 [facility] Comment on above: Performed By: #### Micheal Go, TILA, WILNER, LIVR #### [place] [address] Sodium [Moles/Vol] 134 mmol/L Low 137-145 [facility] Comment on above: Performed By: #### Micheal Go, TILA, WILNER, LIVR #### Testing performed at [place] [id number] Urea nitrogen [Mass/Vol] 22 mg/dL High 7-20 [facility] Comment on above: Performed By: #### Micheal Go, TILA, SANDRAF, LIVR #### Testing performed at [address] [address] BLOOD CULTUREon 03-17-2023 Bacteria identified Cx Nom (Bld) SPECIMEN DESCRIPTION PERIPHERAL BLOOD DRAW SPECIAL REQUESTS LAC CULTURE NO GROWTH 5 DAYS * Result Note: Testing performed at [place] [address] * REPORT STATUS 03/22/2023 * Result Note: FINAL * Normal [facility] Comment on above: Performed By: #### Micheal Go, TILA, RENF, LIVR #### [place] [address] Bacteria identified Cx Nom (Bld) SPECIMEN DESCRIPTION PERIPHERAL BLOOD DRAW SPECIAL REQUESTS LEFT FOREARM CULTURE NO GROWTH 5 DAYS * Result Note: Testing performed at [place] [address] * REPORT STATUS 03/22/2023 * Result Note: FINAL * Normal [facility] Comment on above: Performed By: #### Micheal Go, ACBC, RENF, LIVR #### [place] [address] CBCon 03-17-2023 ABSOLUTE BAS 0.0 10*3/uL Normal 0.0-0.2 [facility] Comment on above: Result Comment: Test ing performed at [place] [address] Performed By: #### Micheal Go, ACBC, RENF, LIVR #### [place] [address] ABSOLUTE EOS 0.2 10*3/uL Normal 0.0-0.7 [facility] Comment on above: Performed By: #### Micheal Go, ACBC, RENF, LIVR #### [place] [address] ABSOLUTE NEUTROPHIL COUNT 1.1 10*3/uL Low 1.4-6.5 [facility] Comment on above: Performed By: #### Micheal Go, ACBC, RENF, LIVR #### [place] [address] Basophils/100 WBC (Bld) 0.8 % Normal 0.0-2.0 [facility] Comment on above: Performed By: #### Micheal Go, ACBC, RENF, LIVR #### [place] [address] DTYPE AUTO DIFF Normal [facility] Comment on above: Performed By: #### Micheal Go, ACBC, RENF, LIVR #### [place] [address] Eosinophils/100 WBC (Bld) 10.6 % Normal 0.0-11.0 [facility] Comment on above: Performed By: #### Micheal Go, ACBC, RENF, LIVR #### [place] [address] Lymphocytes (Bld) [#/Vol] 0.7 10*3/uL Low 1.2-3.4 [facility] Comment on above: Performed By: #### Micheal Go, ACBC, RENF, LIVR #### Testing performed at [address] [address] Lymphocytes/100 WBC (Bld) 31.6 % Normal 20.0-55.0 [facility] Comment on above: Performed By: #### Micheal Go, ACBC, RENF, LIVR #### Testing performed at [place] [id number] Monocytes (Bld) [#/Vol] 0.2 10*3/uL Normal 0.0-0.7 [facility] Comment on above: Performed By: #### Micheal Go, ACBC, RENF, LIVR #### Testing performed at [place] [id number] Monocytes/100 WBC (Bld) 8.8 % Normal 0.0-10.0 [facility] Comment on above: Performed By: #### Micheal Go, ACBC, RENF, LIVR #### Testing performed at [place] [id number] Neutrophils/100 WBC (Bld) 48.2 % Normal 37.0-75.0 [facility] Comment on above: Performed By: #### Micheal Go, ACBC, RENF, LIVR #### Testing performed at [place] [id number] Erythrocyte distribution width (RBC) [Ratio] 16.1 % High 11.5-14.5 [facility] Comment on above: Performed By: #### Micheal Go, ACBC, RENF, LIVR #### Testing performed at [place] [id number] Hematocrit (Bld) [Volume fraction] 31.4 % Low 42.0-52.0 [facility] Comment on above: Performed By: #### Micheal Go, ACBC, RENF, LIVR #### Testing performed at [place] [id number] Hemoglobin (Bld) [Mass/Vol] 10.0 g/dL Low 14.0-18.0 [facility] Comment on above: Performed By: #### Micheal Go, LEIDABC, SANDRAF, LIVR #### [place] [address] MCH (RBC) [Entitic mass] 22.7 pg Low 26.0-35.0 [facility] Comment on above: Performed By: #### Micheal Go, LEIDABC, SANDRAF, LIVR #### [place] [address] MCHC (RBC) [Mass/Vol] 32.0 g/dL Normal 27.0-37.0 [facility] Comment on above: Performed By: #### Micheal Go, TILA, WILNER, LIVR #### [place] [address] MCV (RBC) [Entitic vol] 71.1 fL Low 80.0-100.0 [facility] Comment on above: Performed By: #### Micheal Go, TILA, RENF, LIVR #### [place] [address] Platelet mean volume (Bld) [Entitic vol] 7.7 fL Normal 7.4-11.0 [facility] Comment on above: Result Comment: Test ing performed at [place] [address] Performed By: #### Micheal Go, TILA, SANDRAF, LIVR #### [place] [address] Platelets (Bld) [#/Vol] 91 10*3/uL Low 130-400 [facility] Comment on above: Performed By: #### Micheal Go, LEIDABC, RENF, LIVR #### [place] [address] RBC (Bld) [#/Vol] 4.41 10*6/uL Normal 4.0-6.1 [facility] Comment on above: Performed By: #### Micheal Go, ACBC, RENF, LIVR #### Testing performed at [address] [place] [address] WBC (Bld) [#/Vol] 2.2 10*3/uL Low 3.6-11.0 [facility] Comment on above: Performed By: #### M Abbi, TILA, WILNER, PERI #### Testing performed at [facility] [address] [place] [address] CBC, EDIF, PLATELETon 2022 ABSOLUTE BASOPHIL COUNT 0.0 10*3/uL 0.0 - 0.2 10*3/uL [facility] Comment on above: Testing performed at [place], [place] [address] Basophils/100 WBC (Bld) 0.8 % 0.0 - 2.0 % [facility] Differential cell count method Nom (Bld) AUTO DIFF % [facility] Eosinophils (Bld) [#/Vol] 0.2 10*3/uL 0.0 - 0.7 10*3/uL [facility] Eosinophils/100 WBC (Bld) 10.6 % 0.0 - 11.0 % [facility] Erythrocyte distribution width (RBC) [Ratio] 16.1 % High 11.5 - 14.5 % [facility] Hematocrit (Bld) [Volume fraction] 31.4 % Low 42.0 - 52.0 % [facility] Hemoglobin (Bld) [Mass/Vol] 10.0 g/dL Low [facility] Interpretation and review of laboratory results Abnormal [facility] Lymphocytes (Bld) [#/Vol] 0.7 10*3/uL Low 1.2 - 3.4 10*3/uL [facility] Lymphocytes/100 WBC (Bld) 31.6 % 20.0 - 55.0 % [facility] MCH (RBC) [Entitic mass] 22.7 pg Low 26.0 - 35.0 PG [facility] MCHC (RBC) [Mass/Vol] 32.0 g/dL [facility] MCV (RBC) [Entitic vol] 71.1 fL Low [facility] Monocytes (Bld) [#/Vol] 0.2 10*3/uL 0.0 - 0.7 10*3/uL [facility] Monocytes/100 WBC (Bld) 8.8 % 0.0 - 10.0 % [facility] Neutrophils (Bld) [#/Vol] 1.1 10*3/uL Low 1.4 - 6.5 10*3/uL [facility] Neutrophils/100 WBC (Bld) 48.2 % 37.0 - 75.0 % [facility] Platelet mean volume (Bld) [Entitic vol] 7.7 fL [facility] Platelets (Bld) [#/Vol] 91 10*3/uL Low 130 - 400 10*3/uL [facility] RBC (Bld) [#/Vol] 4.41 10*6/uL 4.0 - 6.1 10*6/uL [facility] WBC (Bld) [#/Vol] 2.2 10*3/uL Low 3.6 - 11.0 10*3/uL [facility] MAGNESIUMon 03-17-2023 Magnesium [Mass/Vol] 1.7 mg/dL Normal 1.6-2.3 [facility] Comment on above: Result Comment: Test ing performed at [place] [address] Performed By: #### TILA Gold RENF, LIVR #### [place] [address] Magnesium [Mass/Vol] 1.7 mg/dL [facility] Comment on above: Testing performed at [place] [address] MRSA SCREENon 03-17-2023 MRSA DNA EHRMAN+probe Ql (Unsp spec) Negative Normal NEGATIVE [facility] Comment on above: Performed By: #### TILA Gold RENF, LIVR #### [place] [address] STAPH AUREUS SCREEN Negative Normal NEGATIVE [facility] Comment on above: Result Comment: TEST ING PERFORMED BY PCR Testing performed at [place] [address] Performed By: #### TILA Gold RENF, LIVR #### [place] [address] No Panel Informationon 03-17 [facility] PROCALCITONINon 03-17-2023 PROCALCITONIN 0.06 ng/mL Normal 0.00-0.25 [facility] Comment on above: Result Comment: PCT Interpretation Less than 0.10 ng/mL, antibiotic therapy strongly discouraged. 0.10-0.25 ng/mL, antibiotic therapy discouraged. 0.25-0.50 ng/mL, antibiotic therapy encouraged. Greater than 0.50 ng/mL, antibiotic therapy strongly encouraged. Testing performed at [place] [address] Performed By: #### TILA Gold RENF, LIVR #### [place] [address] PROCALCITONIN 0.06 ng/mL 0.00 - 0.25 ng/mL [facility] Comment on above: PCT Interpretation Less than 0.10 ng/mL, antibiotic therapy strongly discouraged. 0.10-0.25 ng/mL, antibiotic therapy discouraged. 0.25-0.50 ng/mL, antibiotic therapy encouraged. Greater than 0.50 ng/mL, antibiotic therapy strongly encouraged. Testing performed at [address] PROTIMEon 03-17-2023 INR Coag (PPP) [Relative time] 1.27 {INR} High 0.85-1.10 [facility] Comment on above: Result Comment: 2.0-3.0 THERAPEUTIC RANGE 2.5-3.5 MECHANICAL VALVE RANGE Testing performed at [place] [address] Performed By: #### TILA Gold RENF, LIVR #### [place] [address] PT Coag (PPP) [Time] 16.0 s High 11.8-14.4 [facility] Comment on above: Performed By: #### TILA Gold RENF, LIVR #### [place] [address] PROTIME-INRon 03-17-2023 INR Coag (PPP) [Relative time] 1.27 {INR} High 0.85 - 1.10 [facility] Comment on above: 2.0-3.0 THERAPEUTIC RANGE 2.5-3.5 MECHANICAL VALVE RANGE Testing performed at [place] [address] Interpretation and review of laboratory results Abnormal [facility] PT Coag (PPP) [Time] 16.0 s [facility] RAPID TOX SCREEN,URINEon AMPHETAMINE Negative Normal NEGATIVE [facility] Comment on above: Result Comment: <500 ng/ml CUTOFF Performed By: #### M G, ACBC, RENF, LIVR #### [place] [address] BARBITURATES Negative Normal NEGATIVE [facility] Comment on above: Result Comment: <200 ng/ml CUTOFF Performed By: #### M G, ACBC, RENF, LIVR #### [place] [address] BENZODIAZEPINES Positive Abnormal NEGATIVE [facility] Comment on above: Result Comment: <150 ng/ml CUTOFF *Unconfirmed Screening Result* Unconfirmed screening results are to be used only for medical treatment purposes. Performed By: #### M G, ACBC, RENF, LIVR #### [place] [address] BUPRENORPHINE Positive Abnormal NEGATIVE [facility] Comment on above: Result Comment: <10 ng/ml CUTOFF *Unconfirmed Screening Result* Unconfirmed screening results are to be used only for medical treatment purposes. Performed By: #### M G, ACBC, RENF, LIVR #### [place] [address] CANNABINOIDS Negative Normal NEGATIVE [facility] Comment on above: Result Comment: <50 ng/ml CUTOFF Performed By: #### M G, ACBC, RENF, LIVR #### [place] [address] COCAINE Positive Abnormal NEGATIVE [facility] Comment on above: Result Comment: <150 ng/ml CUTOFF *Unconfirmed Screening Result* Unconfirmed screening results are to be used only for medical treatment purposes. Performed By: #### M G, ACBC, RENF, LIVR #### [place] [address] FENTANYL Negative Normal NEGATIVE [facility] Comment on above: Result Comment: 20 n g/mL CUTOFF *Unconfirmed Screening Result* Unconfirmed screening results are to be used only for medical treatment purposes. This test has not been approved by the FDA. Testing performed at [place] [address] Performed By: #### M G, ACBC, RENF, LIVR #### [place] [address] METHADONE Negative Normal NEGATIVE [facility] Comment on above: Result Comment: <200 ng/ml CUTOFF Performed By: #### M G, ACBC, RENF, LIVR #### [place] [address] METHAMPHETAMINE Negative Normal NEGATIVE [facility] Comment on above: Result Comment: <500 ng/ml CUTOFF Performed By: #### M G, ACBC, RENF, LIVR #### [place] [address] OPIATES Negative Normal NEGATIVE [facility] Comment on above: Result Comment: <100 ng/ml CUTOFF Performed By: #### M G, ACBC, RENF, LIVR #### [place] [address] OXYCODONE Negative Normal NEGATIVE [facility] Comment on above: Result Comment: <100 ng/ml CUTOFF Performed By: #### M G, ACBC, RENF, LIVR #### [place] [address] PHENCYCLIDINE Negative Normal NEGATIVE [facility] Comment on above: Result Comment: <25 ng/ml CUTOFF Performed By: #### M G, ACBC, RENF, LIVR #### [place] [address] PROPOXYPHENE Negative Normal NEGATIVE [facility] Comment on above: Result Comment: <300 ng/ml CUTOFF Performed By: #### M G, ACBC, RENF, LIVR #### Testing performed at [address] [place] [address] TRICYCLIC ANTIDEPRESSANTS Negative Normal NEGATIVE [facility] Comment on above: Result Comment: <300 ng/ml CUTOFF Performed By: #### M Abbi, TILA, WILNER, ELIDAR #### Testing performed at [facility] [address] [place] [address] RENAL FUNCTION PANELon 03-17 Albumin [Mass/Vol] 3.0 G/dl Low 3.5 - 5.0 G/dl [facility] Calcium [Mass/Vol] 7.9 mg/dL Low [facility] Chloride [Moles/Vol] 96 mmol/L Low [facility] Comment on above: Please note: Triglyc eride levels of 600mg/dL or higher may positively bias chloride results by approximately 2.1 mmol CO2 [Moles/Vol] 32 mmol/L High [facility] Creatinine [Mass/Vol] 0.50 mg/dL Low [facility] GFR COMMENT Average GFR for 50-5 9 years old = 93. [facility] Comment on above: Chronic Kidney disea se, GFR = <60. Kidney failure, GFR = <15. The GFR estimate is not adjusted for extreme body surface area or acute process, nor has it been validated for women or ethnic groups other than and . Testing performed at [place], [place] [address] GFR/1.73 sq M.predicted among blacks MDRD (S/P/Bld) [Vol rate/Area] 221 mL/min/{1.73_m2} ml/min/1.73s q.m [facility] GFR/1.73 sq M.predicted among non-blacks MDRD (S/P/Bld) [Vol rate/Area] 183 mL/min/{1.73_m2} ml/min/1.73s q.m [facility] Glucose post fast [Mass/Vol] 90 mg/dL [facility] Comment on above: NORMAL <100 mg/dL PREDIABETES 101-126 mg/dL DIABETES 126 mg/dL or higher Interpretation and review of laboratory results Abnormal [facility] Phosphate [Mass/Vol] 4.4 mg/dL [employer] [facility] Potassium [Moles/Vol] 3.6 mmol/L [facility] Sodium [Moles/Vol] 133 mmol/L Low [facility] Urea nitrogen [Mass/Vol] 16 mg/dL [facility] RENAL PANEL,FASTINGon 2022 ALBUMIN 3.0 G/dl Low 3.5-5.0 [facility] Comment on above: Performed By: #### Micheal Go, ACMASOOD, RENF, LIVR #### Testing performed at [address] [address] Calcium [Mass/Vol] 7.9 mg/dL Low 8.4-10.2 [facility] Comment on above: Performed By: #### Micheal Go, ACMASOOD, RENF, LIVR #### Testing performed at [place] [id number] Chloride [Moles/Vol] 96 mmol/L Low 98-107 [facility] Comment on above: Result Comment: Krystian boyd note: Triglyceride levels of 600mg/dL or higher may positively bias chloride results by approximately 2.1 mmol Performed By: #### TILA Gold, RENF, LIVR #### Testing performed at [address] [address] CO2 [Moles/Vol] 32 mmol/L High 22-30 [facility] Comment on above: Performed By: #### Micheal Go, TILA, RENF, LIVR #### Testing performed at [address] [address] Creatinine [Mass/Vol] 0.50 mg/dL Low 0.7-1.2 [facility] Comment on above: Performed By: #### Micheal Go, ACBC, RENF, LIVR #### Testing performed at [address] [address] EST. GFR, 221 ml/min/1.73sq.m [facility] Comment on above: Performed By: #### Micheal Go, ACBC, RENF, LIVR #### Testing performed at [address] [address] EST. GFR,Non 183 ml/min/1.73sq.m [facility] Comment on above: Performed By: #### M G, ACBC, RENF, LIVR #### [place] [address] GFR Information Average GFR for 50-5 9 years old = 93. Normal [facility] Comment on above: Result Comment: Shop Hand kaveh Kidney disease, GFR = <60. Kidney failure, GFR = <15. The GFR estimate is not adjusted for extreme body surface area or acute process, nor has it been validated for women or ethnic groups other than and . Testing performed at [place] [address] Performed By: #### Micheal Go, ACMASOOD, RENF, LIVR #### [place] [address] Glucose [Mass/Vol] 90 mg/dL Normal 70-100 [facility] Comment on above: Result Comment: NORMAL <100 mg/dL PREDIABETES 101-126 mg/dL DIABETES 126 mg/dL or higher Performed By: #### Micheal Go, LEIDABC, RENF, LIVR #### [place] [address] PHOSPHOROUS 4.4 MG/DL Normal 2.5-4.5 [facility] Comment on above: Performed By: #### Micheal Go, LEIDABC, RENF, LIVR #### [place] [address] Potassium [Moles/Vol] 3.6 mmol/L Normal 3.5-5.1 [facility] Comment on above: Performed By: #### Micheal Go, ACBC, RENF, LIVR #### [place] [address] Sodium [Moles/Vol] 133 mmol/L Low 137-145 [facility] Comment on above: Performed By: #### Micheal Go, ACBC, RENF, LIVR #### [place] [address] Urea nitrogen [Mass/Vol] 16 mg/dL Normal 7-20 [facility] Comment on above: Performed By: #### M G, ACBC, RENF, LIVR #### [place] [address] SCREEN: MRSA ONLY, NARES (IS OLATION SCREEN)on 03-17-2023 MRSA isol Org specific cx Ql (Nose) Negative NEGATIVE [facility] STAPHYOCOCCUS AUREUS BY PCR Negative NEGATIVE [facility] Comment on above: TESTING PERFORMED BY PCR Testing performed at [address] TOXICOLOGY DRUG SCREEN, URIN Jonathan 03-17-2023 Amphetamine (U) [Mass/Vol] Negative NEGATIVE NG/ML [facility] Comment on above: <500 ng/ml CUTOFF Barbiturates Screen Ql (U) Negative NEGATIVE NG/ML [facility] Comment on above: <200 ng/ml CUTOFF Benzodiazepines Ql (U) Positive Abnormal NEGATIVE NG/ML [facility] Comment on above: <150 ng/ml CUTOFF *Unconfirmed Screening Result* Unconfirmed screening results are to be used only for medical treatment purposes. Benzoylecgonine Ql (U) Positive Abnormal NEGATIVE NG/ML [facility] Comment on above: <150 ng/ml CUTOFF *Unconfirmed Screening Result* Unconfirmed screening results are to be used only for medical treatment purposes. Buprenorphine Ql (U) Positive Abnormal NEGATIV E NG/ML [facility] Comment on above: <10 ng/ml CUTOFF *Unconfirmed Screening Result* Unconfirmed screening results are to be used only for medical treatment purposes. Cannabinoids Screen Ql (U) Negative NEGATIVE NG/ML [facility] Comment on above: <50 ng/ml CUTOFF Fentanyl Negative NEGATIVE NG/ML [facility] Comment on above: 20 ng/mL CUTOFF *Unconfirmed Screening Result* Unconfirmed screening results are to be used only for medical treatment purposes. This test has not been approved by the FDA. Testing performed at [place] [address] Interpretation and review of laboratory results Abnormal [facility] Methadone Screen Ql (U) Negative NEGATIVE NG/ML [facility] Comment on above: <200 ng/ml CUTOFF Methamphetamine (U) [Mass/Vol] Negative NEGATIVE NG/ML [facility] Comment on above: <500 ng/ml CUTOFF Opiates Screen Ql (U) Negative NEGATIVE NG/ML [facility] Comment on above: <100 ng/ml CUTOFF oxyCODONE Ql (U) Negative NEGATIVE NG/ML [facility] Comment on above: <100 ng/ml CUTOFF Phencyclidine Screen method >25 ng/mL Ql (U) Negative NEGATIVE NG/ML [facility] Comment on above: <25 ng/ml CUTOFF Propoxyphene+Norprop oxyphene Screen Ql (U) Negative NEGATIVE NG/ML [facility] Comment on above: <300 ng/ml CUTOFF Tricyclic antidepressants Screen Ql (U) Negative NEGATIVE NG/ML [facility] Comment on above: <300 ng/ml CUTOFF [facility] WOUND CULTUREon 03-17-2023 WOUND CULTURE [...] * * Result Note: Testing performed at [place] [address] * REPORT STATUS 03/20/2023 * Result Note: FINAL * Normal [facility] Comment on above: Performed By: #### M G, ACBC, RENF, LIVR #### [place] [address] B-TYPE NATRIURETIC PEPTIDE ( BRAIN)on 03-16-2023 Natriuretic peptide B (Bld) [Mass/Vol] 27 pg/mL 0 - 100 pg/mL [facility] C REACTIVE PROTEINon 023 CRP [Mass/Vol] 5.5 mg/L 0 - 10 MG/L [facility] CBC, EDIF, PLATELETon 2022 ABSOLUTE BASOPHIL COUNT 0.0 10*3/uL 0.0 - 0.2 10*3/uL [facility] Basophils/100 WBC (Bld) 0.4 % 0.0 - 2.0 % [facility] Differential cell count method Nom (Bld) AUTO DIFF % [facility] Eosinophils (Bld) [#/Vol] 0.3 10*3/uL 0.0 - 0.7 10*3/uL [facility] Eosinophils/100 WBC (Bld) 9.0 % 0.0 - 11.0 % [facility] Erythrocyte distribution width (RBC) [Ratio] 15.9 % High 11.5 - 14.5 % [facility] Hematocrit (Bld) [Volume fraction] 33.6 % Low 42.0 - 52.0 % [facility] Hemoglobin (Bld) [Mass/Vol] 10.5 g/dL Low [facility] Interpretation and review of laboratory results Abnormal [facility] Lymphocytes (Bld) [#/Vol] 0.6 10*3/uL Low 1.2 - 3.4 10*3/uL [facility] Lymphocytes/100 WBC (Bld) 16.9 % Low 20.0 - 55.0 % [facility] MCH (RBC) [Entitic mass] 22.4 pg Low 26.0 - 35.0 PG [facility] MCHC (RBC) [Mass/Vol] 31.3 g/dL [facility] MCV (RBC) [Entitic vol] 71.7 fL Low [facility] Monocytes (Bld) [#/Vol] 0.4 10*3/uL 0.0 - 0.7 10*3/uL [facility] Monocytes/100 WBC (Bld) 9.6 % 0.0 - 10.0 % [facility] Neutrophils (Bld) [#/Vol] 2.3 10*3/uL 1.4 - 6.5 10*3/uL [facility] Neutrophils/100 WBC (Bld) 64.1 % 37.0 - 75.0 % [facility] Platelet mean volume (Bld) [Entitic vol] 7.7 fL [facility] Platelets (Bld) [#/Vol] 106 10*3/uL Low 130 - 400 10*3/uL [facility] RBC (Bld) [#/Vol] 4.68 10*6/uL 4.0 - 6.1 10*6/uL [facility] WBC (Bld) [#/Vol] 3.6 10*3/uL 3.6 - 11.0 10*3/uL [facility] CKon 03-16-2023 CK [Catalytic activity/Vol] Low [facility] Interpretation and review of laboratory results Abnormal [facility] COMPREHENSIVE METABOLIC PANE Ras 03-16-2023 Albumin [Mass/Vol] 3.6 G/dl 3.5 - 5.0 G/dl [facility] Albumin/Globulin [Mass ratio] 0.8 {ratio} RATIO [facility] ALP [Catalytic activity/Vol] 53 U/L [facility] ALT [Catalytic activity/Vol] 21 U/L NINF [facility] AST [Catalytic activity/Vol] 38 U/L [facility] Bilirubin [Mass/Vol] 1.6 mg/dL High [facility] Calcium [Mass/Vol] 8.3 mg/dL Low [facility] Chloride [Moles/Vol] 96 mmol/L Low [facility] Comment on above: Please note: Triglyc eride levels of 600mg/dL or higher may positively bias chloride results by approximately 2.1 mmol CO2 [Moles/Vol] 33 mmol/L High [facility] Creatinine [Mass/Vol] 0.59 mg/dL Low [facility] GFR COMMENT Average GFR for 50-5 9 years old = 93. [facility] Comment on above: Chronic Kidney disea se, GFR = <60. Kidney failure, GFR = <15. The GFR estimate is not adjusted for extreme body surface area or acute process, nor has it been validated for women or ethnic groups other than and . GFR/1.73 sq M.predicted among blacks MDRD (S/P/Bld) [Vol rate/Area] 183 mL/min/{1.73_m2} ml/min/1.73s q.m [facility] GFR/1.73 sq M.predicted among non-blacks MDRD (S/P/Bld) [Vol rate/Area] 151 mL/min/{1.73_m2} ml/min/1.73s q.m [facility] Glucose post fast [Mass/Vol] 116 mg/dL High [facility] Comment on above: NORMAL <100 mg/dL PREDIABETES 101-126 mg/dL DIABETES 126 mg/dL or higher Interpretation and review of laboratory results Abnormal [facility] Potassium [Moles/Vol] 3.5 mmol/L [facility] Protein [Mass/Vol] 8.1 g/dL [facility] Sodium [Moles/Vol] 137 mmol/L [facility] Urea nitrogen [Mass/Vol] 15 mg/dL [facility] LACTATE, BLOODon 03-16-2023 Lactate [Moles/Vol] 1.7 mmol/L 0.7 - 2. 0 mmol/L [facility] No Panel Informationon 03-16 [facility] [employer] Portable XR Chest Views APon 03-16-2023 IMPRESSION: [...] soft tissue. IMPRESSION IMPRESSION: No acute findings. [facility] Rad[facility] Study observation (narrative) [facility] Portable XR Chest Views APOr dered By: Jerry Zimmerman on 03-16-2023 [facility] Work Phone: SEDIMENTATION RATE, AUTOMATE Don 03-16-2023 ESR (Bld) [Velocity] 65 mm/h High [employer] Interpretation and review of laboratory results Abnormal [facility] TROPONIN I, HIGH SENSITIVITY on 03-16-2023 TROPONIN I, HIGH SENSITIVITY 2 pg/mL 0 - 20 pg/mL [facility] Comment on above: Indeterminant: >12 to 100 pg/mL female >20 to 100 pg/mL male Indicative of myocardial injury. Serial sampling is recommended, a change of greater than or equal to 20 pg/mL is indicative of acute coronary syndrome. [facility] US.doppler Extremity vessels - [...] visualized venous thrombus. Right inguinal lymph node. [facility] Study observation (narrative) [facility] US.doppler Extremity vessels - bilateralOrdered By: Paulino Marcos on 03-16-2023 [facility] Work Phone: WOUND CULTUREon 03-14-2023 WOUND CULTURE SPECIMEN DESCRIPTION LEFT LEG GRAM SMEAR FEW * Result Note: WBC'S SEEN * * Result Note: FEW * * Result Note: GRAM POSITIVE COCCI * CULTURE ENTEROCOCCUS FAECALIS GROUP D * Result Note: HEAVY GROWTH * * Result Note: Testing performed at [place], [place] [address] * REPORT STATUS 03/14/2023 * Result Note: FINAL * ORGANISM ENTEROCOCCUS FAECALIS GROUP D * Result Note: ENTEROCOCCUS FAECALIS GROUP D * METHOD LIV AMPICILLIN <=2 SUSCEPTIBLE PENICILLIN G 2 SUSCEPTIBLE VANCOMYCIN 1 SUSCEPTIBLE GENTAMICIN HIGH LEVEL RESISTANT STREPTOMYCIN HIGH LEVEL SUSCEPTIBLE Normal [facility] Comment on above: Performed By: #### M G, ACBC, RENF, LIVR #### Testing performed at [facility] [address] [place] [address] SOLUBLE TRANSFERRIN RECEPTOR on 03-05-2023 SOLUBLE TRANSFERRIN RECEPTOR 27.4 High [facility] Comment on above: Result Comment: Refe rence range: 12.2 to 27.3 Unit: nmol/L PERFORMED AT [facility] Performed By: #### L STR #### Testing performed at [facility] C REACTIVE PROTEINon 023 CRP [Mass/Vol] 5.9 mg/L Normal 0-10 [facility] CBCon 03-03-2023 ABSOLUTE BAS 0.0 10*3/uL Normal 0.0-0.2 [facility] ABSOLUTE EOS 0.1 10*3/uL Normal 0.0-0.7 [facility] ABSOLUTE NEUTROPHIL COUNT 1.9 10*3/uL Normal 1.4-6.5 [facility] Basophils/100 WBC (Bld) 0.6 % Normal 0.0-2.0 [facility] DTYPE AUTO DIFF Normal [facility] Eosinophils/100 WBC (Bld) 3.9 % Normal 0.0-11.0 [facility] Lymphocytes (Bld) [#/Vol] 0.6 10*3/uL Low 1.2-3.4 [facility] Lymphocytes/100 WBC (Bld) 21.3 % Normal 20.0-55.0 [facility] Monocytes (Bld) [#/Vol] 0.2 10*3/uL Normal 0.0-0.7 [facility] Monocytes/100 WBC (Bld) 8.2 % Normal 0.0-10.0 [facility] Neutrophils/100 WBC (Bld) 66.0 % Normal 37.0-75.0 [facility] Erythrocyte distribution width (RBC) [Ratio] 16.4 % High 11.5-14.5 [facility] Hematocrit (Bld) [Volume fraction] 29.1 % Low 42.0-52.0 [facility] Hemoglobin (Bld) [Mass/Vol] 9.3 g/dL Low 14.0-18.0 [facility] MCH (RBC) [Entitic mass] 23.1 pg Low 26.0-35.0 [facility] MCHC (RBC) [Mass/Vol] 32.1 g/dL Normal 27.0-37.0 [facility] MCV (RBC) [Entitic vol] 72.1 fL Low 80.0-100.0 [facility] Platelet mean volume (Bld) [Entitic vol] 7.4 fL Normal 7.4-11.0 [facility] Platelets (Bld) [#/Vol] 96 10*3/uL Low 130-400 [facility] RBC (Bld) [#/Vol] 4.03 10*6/uL Normal 4.0-6.1 [facility] WBC (Bld) [#/Vol] 2.8 10*3/uL Low 3.6-11.0 [facility] ESRon 03-03-2023 ESR (Bld) [Velocity] 31 mm/h High 0-20 [facility] MAGNESIUMon 03-03-2023 Magnesium [Mass/Vol] 1.9 mg/dL Normal 1.6-2.3 [facility] RENAL PANEL,FASTINGon 2022 ALBUMIN 2.9 G/dl Low 3.5-5.0 [facility] Calcium [Mass/Vol] 8.0 mg/dL Low 8.4-10.2 [facility] Chloride [Moles/Vol] 113 mmol/L High 98-107 [facility] Comment on above: Result Comment: Krystian boyd note: Triglyceride levels of 600mg/dL or higher may positively bias chloride results by approximately 2.1 mmol CO2 [Moles/Vol] 25 mmol/L Normal 22-30 [facility] Creatinine [Mass/Vol] 0.50 mg/dL Low 0.7-1.2 [facility] EST. GFR, 221 ml/min/1.73sq.m Normal [facility] EST. GFR,Non 183 ml/min/1.73sq.m Normal [facility] GFR Information Average GFR for 50-5 9 years old = 93. Normal [facility] Comment on above: Result Comment: Shop Hand kaveh Kidney disease, GFR = <60. Kidney failure, GFR = <15. The GFR estimate is not adjusted for extreme body surface area or acute process, nor has it been validated for women or ethnic groups other than and . Glucose [Mass/Vol] 93 mg/dL Normal 70-100 [facility] Comment on above: Result Comment: NORMAL <100 mg/dL PREDIABETES 101-126 mg/dL DIABETES 126 mg/dL or higher PHOSPHOROUS 3.2 MG/DL Normal 2.5-4.5 [facility] Potassium [Moles/Vol] 4.3 mmol/L Normal 3.5-5.1 [facility] Sodium [Moles/Vol] 136 mmol/L Low 137-145 [facility] Urea nitrogen [Mass/Vol] 16 mg/dL Normal 7-20 [facility] VANCOMYCIN TROUGHon 03-03-20 23 VANCOMYCIN TROUGH 15.2 UG/ML Normal 15-20 [facility] WOUND CULTUREon 03-03-2023 WOUND CULTURE SPECIMEN DESCRIPTION [...] * * Result Note: Testing performed at [place], [place] [address] * REPORT STATUS 03/03/2023 * Result Note: FINAL * ORGANISM STAPHYLOCOCCUS AUREUS * Result Note: STAPHYLOCOCCUS AUREUS * METHOD LIV OXACILLIN 0.5 SUSCEPTIBLE CLINDAMYCIN <=0.25 SUSCEPTIBLE ERYTHROMYCIN >=8 RESISTANT TETRACYCLINE <=1 SUSCEPTIBLE VANCOMYCIN <=0.5 SUSCEPTIBLE RIFAMPIN <=0.5 SUSCEPTIBLE PENICILLIN G >=0.5 RESISTANT GENTAMICIN <=0.5 SUSCEPTIBLE LEVOFLOXACIN 0.25 SUSCEPTIBLE INDUCIBLE CLINDAMYCIN RESISTANCE NEGATIVE LINEZOLID 2 SUSCEPTIBLE TRIMETH-SULFA <=10 SUSCEPTIBLE Normal [facility] Comment on above: Performed By: #### W DC ####Testing performed at [address] [address]Vlgbyun performed at [address] [address] B12 FOLATEon 03-02-2023 Cobalamin (Vitamin B12) [Mass/Vol] 327 pg/mL Normal 239-931 [facility] Comment on above: Performed By: #### A CBC, FEPRO ####Testing performed at [address] [address] FOLATE 6.7 NG/ML Normal 2.56-20.0 [facility] Comment on above: Performed By: #### A CBC, FEPRO ####Testing performed at [address] [address] C REACTIVE PROTEINon 023 CRP [Mass/Vol] 8.5 mg/L Normal 0-10 [facility] Comment on above: Performed By: #### A CBC, FEPRO #### Testing performed at [address] [address] CBCon 03-02-2023 DTYPE MANUAL DIFF Normal [facility] Comment on above: Performed By: #### A CBC, FEPRO #### Testing performed at [address] [address] Eosinophils/100 WBC (Bld) 2 % Normal 0.0-11.0 [facility] Comment on above: Performed By: #### A CBC, FEPRO #### Testing performed at [address] [address] Lymphocytes/100 WBC (Bld) 26 % Normal 20.0-55.0 [facility] Comment on above: Performed By: #### A CBC, FEPRO #### Testing performed at [address] [address] Monocytes/100 WBC (Bld) 4 % Normal 0.0-10.0 [facility] Comment on above: Performed By: #### A CBC, FEPRO #### Testing performed at [address] [place] [address] Neutrophils/100 WBC (Bld) 68 % Normal 37.0-75.0 [facility] Comment on above: Performed By: #### A CBC, FEPRO #### Testing performed at [address] [address] PLATELET COMMENT DECREASED Normal [facility] Comment on above: Performed By: #### A CBC, FEPRO #### Testing performed at [address] [place] [address] RBC morphology finding Nom (Bld) 1+ Normal [facility] Comment on above: Result Comment: ANIS OCYTE 1+ POIKILOCYTE 1+ TARGET CELLS 1+ MICROCYTOSIS Performed By: #### A CBC, FEPRO #### Testing performed at [address] [address] Erythrocyte distribution width (RBC) [Ratio] 16.6 % High 11.5-14.5 [facility] Comment on above: Performed By: #### A CBC, FEPRO #### Testing performed at [address] [place] [address] Hematocrit (Bld) [Volume fraction] 27.6 % Low 42.0-52.0 [facility] Comment on above: Performed By: #### A CBC, FEPRO #### Testing performed at [address] [place] [address] Hemoglobin (Bld) [Mass/Vol] 8.7 g/dL Low 14.0-18.0 [facility] Comment on above: Performed By: #### A CBC, FEPRO #### Testing performed at [address] [address] MCH (RBC) [Entitic mass] 22.9 pg Low 26.0-35.0 [facility] Comment on above: Performed By: #### A CBC, FEPRO #### Testing performed at [address] [address] MCHC (RBC) [Mass/Vol] 31.7 g/dL Normal 27.0-37.0 [facility] Comment on above: Performed By: #### A CBC, FEPRO #### Testing performed at [address] [address] MCV (RBC) [Entitic vol] 72.2 fL Low 80.0-100.0 [facility] Comment on above: Performed By: #### A CBC, FEPRO #### Testing performed at [address] [address] Platelet mean volume (Bld) [Entitic vol] 8.4 fL Normal 7.4-11.0 [facility] Comment on above: Performed By: #### A CBC, FEPRO #### Testing performed at [address] [address] Platelets (Bld) [#/Vol] 93 10*3/uL Low 130-400 [facility] Comment on above: Performed By: #### A CBC, FEPRO #### Testing performed at [address] [address] RBC (Bld) [#/Vol] 3.83 10*6/uL Low 4.0-6.1 [facility] Comment on above: Performed By: #### A CBC, FEPRO #### Testing performed at [address] [address] WBC (Bld) [#/Vol] 2.0 10*3/uL Low 3.6-11.0 [facility] Comment on above: Performed By: #### A CBC, FEPRO #### Testing performed at [address] [address] ESRon 03-02-2023 ESR (Bld) [Velocity] 21 mm/h High 0-20 [facility] Comment on above: Performed By: #### A CBC, FEPRO #### Testing performed at [address] [address] FERRITINon 03-02-2023 Ferritin [Mass/Vol] 70 ng/mL Normal 17.9-464 [facility] Comment on above: Performed By: #### A CBC, FEPRO ####Testing performed at [place] [id number] HCV FIBROSUREon 03-02-2023 ALPHA 2 MACROGLOBULIN QN 204 Normal [facility] Comment on above: Result Comment: Refe rence range: 110 to 276 Unit: mg/dL Performed By: #### A CBC ####[place] [address]#### LHCVF, LHCV ####Testing performed at [facility] ALT P5P 9 [facility] Comment on above: Result Comment: Refe rence range: 0 to 55 Unit: IU/L Performed By: #### A CBC ####Testing performed at [place] [id number]#### LHCVF, LHCV ####Testing performed at [facility] APOLIPOPROTEIN A1 75 Low [facility] Comment on above: Result Comment: Refe rence range: 101 to 178 Unit: mg/dL Performed By: #### A CBC ####Testing performed at [place] [id number]#### LHCVF, LHCV ####Testing performed at [facility] Bilirubin [Mass/Vol] 0.7 mg/dL Normal [facility] Comment on above: Result Comment: Refe rence range: 0.0 to 1.2 Unit: mg/dL Performed By: #### A CBC ####[place] [address]#### LHCVF, LHCV ####Testing performed at [facility] COMMENT Comment Normal [facility] Comment on above: Result Comment: (NOT E) This test was developed and its performance characteristics determined by [facility]. It has not been cleared or approved by the Food and Drug Administration. The FDA has determined that such clearance or approval is not necessary. For questions regarding this report please contact customer service at . Performed By: #### A CBC ####[place] [address]#### LHCVF, LHCV ####Testing performed at [facility] FIBROSIS SCORE 0.64 High [facility] Comment on above: Result Comment: Refe rence range: 0.00 to 0.21 Performed By: #### A CBC ####[place] [address]#### LHCVF, LHCV ####Testing performed at [facility] FIBROSIS SCORING Comment [facility] Comment on above: Result Comment: (NOT [...] By: #### A CBC ####[place] [address]#### LHCVF, LHCV ####Testing performed at [facility] FIBROSIS STAGE Bridging fibrosis wi th many septa Normal [facility] Comment on above: Result Comment: Comm ent F3 Performed By: #### A CBC ####Testing performed at [address], [place] [address]#### LHCVF, LHCV ####Testing performed at [facility] Gamma glutamyl transferase [Catalytic activity/Vol] 21 U/L Normal [facility] Comment on above: Result Comment: Refe rence range: 0 to 65 Unit: IU/L Performed By: #### A CBC ####Testing performed at [address], [place] [address]#### LHCVF, LHCV ####Testing performed at [facility] HAPTOGLOBIN 42 Normal [facility] Comment on above: Result Comment: Refe rence range: 29 to 370 Unit: mg/dL Performed By: #### A CBC ####[place] [address]#### LHCVF, LHCV ####Testing performed at [facility] INTERPRETATIONS Comment Normal [facility] Comment on above: Result Comment: (NOT E) Quantitative results of 6 biochemical tests are analyzed using a computational algorithm to provide a quantitative surrogate marker (0.0-1.0) for liver fibrosis (METAVIR F0-F4) and for necroinflammatory activity (METAVIR A0-A3). Performed By: #### A CBC ####[place] [address]#### LHCVF, LHCV ####Testing performed at [facility] LIMITATIONS Comment Normal [facility] Comment on above: Result Comment: (NOT E) [...] By: #### A CBC ####[place] [address]#### LHCVF, LHCV ####Testing performed at [facility] METHODOLOGY Comment Normal [facility] Comment on above: Result Comment: (NOT E) The analytes tested are performed by [employer]-Specific methods. Not intended for use with other diagnostic considerations. PERFORMED AT [facility] Performed By: #### A CBC ####[place] [address]#### LHCVF, LHCV ####Testing performed at [facility] NECROINFLAMMATORY ACTIVITY GRADE No activity Normal [facility] Comment on above: Result Comment: SEE COMMENT RESULT:A0 Performed By: #### A CBC ####[place] [address]#### LHCVF, LHCV ####Testing performed at [facility] NECROINFLAMMATORY ACTIVITY SCORE 0.04 Normal [facility] Comment on above: Result Comment: Refe rence range: 0.00 to 0.17 Performed By: #### A CBC ####[place] [address]#### LHCVF, LHCV ####Testing performed at [facility] NECROINFLAMMATORY ACTIVITY SCORING Comment Normal [facility] Comment on above: Result Comment: (NOT E) [...] By: #### A CBC ####Testing performed at [address] [address]#### LHCVF, LHCV ####Testing performed at [facility] HIV 1,2 ABo 03-02-2023 HIV 1,2 Non-Reactive Normal NONREACTIVE [facility] Comment on above: Performed By: #### A CBC, FEPRO ####Testing performed at [address] [address] IRON PROFILEon 03-02-2023 IRON BINDING 235 UG/DL Low 250-450 [facility] Comment on above: Performed By: #### A CBC, FEPRO #### Testing performed at [address] [address] TRANSFERRIN SATURATION,CALCULATE D 32 % Normal [facility] Comment on above: Performed By: #### A CBC, FEPRO #### Testing performed at [place] [id number] Iron [Mass/Vol] 75 ug/dL Normal 49-181 [facility] Comment on above: Performed By: #### A CBC, FEPRO #### Testing performed at [address] [address] LAST DOSEon 03-02-2023 LAST DOSE 7.11.23 @1500 Normal [facility] MAGNESIUMon 03-02-2023 Magnesium [Mass/Vol] 1.8 mg/dL Normal 1.6-2.3 [facility] Comment on above: Performed By: #### A CBC, FEPRO ####Testing performed at [address] [address] RENAL PANEL,FASTINGon 2022 ALBUMIN 2.6 G/dl Low 3.5-5.0 [facility] Comment on above: Performed By: #### A CBC, FEPRO ####Testing performed at [address] [address] Calcium [Mass/Vol] 7.9 mg/dL Low 8.4-10.2 [facility] Comment on above: Performed By: #### A CBC, FEPRO ####Testing performed at [address] [address] Chloride [Moles/Vol] 114 mmol/L High 98-107 [facility] Comment on above: Result Comment: Krystian boyd note: Triglyceride levels of 600mg/dL or higher may positively bias chloride results by approximately 2.1 mmol Performed By: #### A CBC, FEPRO ####Testing performed at [address] [address] CO2 [Moles/Vol] 27 mmol/L Normal 22-30 [facility] Comment on above: Performed By: #### A CBC, FEPRO ####Testing performed at [address] [address] Creatinine [Mass/Vol] 0.50 mg/dL Low 0.7-1.2 [facility] Comment on above: Performed By: #### A CBC, FEPRO ####Testing performed at [address] [address] EST. GFR, 221 ml/min/1.73sq.m [facility] Comment on above: Performed By: #### A CBC, FEPRO ####Testing performed at [address] [address] EST. GFR,Non 183 ml/min/1.73sq.m [facility] Comment on above: Performed By: #### A CBC, FEPRO ####Testing performed at [address] [address] GFR Information Average GFR for 50-5 9 years old = 93. Normal [facility] Comment on above: Result Comment: [employer] Kidney disease, GFR = <60. Kidney failure, GFR = <15. The GFR estimate is not adjusted for extreme body surface area or acute process, nor has it been validated for women or ethnic groups other than and . Performed By: #### A CBC, FEPRO ####Testing performed at [address] [address] Glucose [Mass/Vol] 87 mg/dL Normal 70-100 [facility] Comment on above: Result Comment: NORMAL <100 mg/dL PREDIABETES 101-126 mg/dL DIABETES 126 mg/dL or higher Performed By: #### A CBC, FEPRO ####Testing performed at [address] [address] PHOSPHOROUS 2.9 MG/DL Normal 2.5-4.5 [facility] Comment on above: Performed By: #### A CBC, FEPRO ####Testing performed at [address] [address] Potassium [Moles/Vol] 4.1 mmol/L Normal 3.5-5.1 [facility] Comment on above: Performed By: #### A CBC, FEPRO ####Testing performed at [address] [address] Sodium [Moles/Vol] 137 mmol/L Normal 137-145 [facility] Comment on above: Performed By: #### A CBC, FEPRO ####Testing performed at [address] [address] Urea nitrogen [Mass/Vol] 13 mg/dL Normal 7-20 [facility] Comment on above: Performed By: #### A CBC, FEPRO ####Testing performed at [address] [address] RETIC COUNTon 03-02-2023 RETIC COUNT 2.21 % Normal 0.50-2.30 [facility] Comment on above: Performed By: #### A CBC, FEPRO #### Testing performed at [facility] [address] [place] [address] VANCOMYCIN RANDOMon 03-02-20 23 VANCOMYCIN RANDOM 13.4 UG/ML Normal 5.0-20 [facility] VANCOMYCIN TROUGHon 03-02-20 23 VANCOMYCIN TROUGH 22.9 UG/ML High 15-20 [facility] C REACTIVE PROTEINon 023 CRP [Mass/Vol] 13.5 mg/L High 0-10 [facility] Comment on above: Performed By: #### L STR #### Testing performed at [facility] CBCon 03-01-2023 DTYPE MANUAL DIFF Normal [facility] Comment on above: Performed By: #### L STR #### Testing performed at [facility] Eosinophils/100 WBC (Bld) 1 % Normal 0.0-11.0 [facility] Comment on above: Performed By: #### L STR #### Testing performed at [facility] Lymphocytes/100 WBC (Bld) 41 % Normal 20.0-55.0 [facility] Comment on above: Performed By: #### L STR #### Testing performed at [facility] Monocytes/100 WBC (Bld) 2 % Normal 0.0-10.0 [facility] Comment on above: Performed By: #### L STR #### Testing performed at [facility] Neutrophils/100 WBC (Bld) 56 % Normal 37.0-75.0 [facility] Comment on above: Performed By: #### L STR #### Testing performed at [facility] PLATELET COMMENT DECREASED Normal [facility] Comment on above: Performed By: #### L STR #### Testing performed at [facility] RBC morphology finding Nom (Bld) ANISOCYTE Normal [facility] Comment on above: Performed By: #### L STR #### Testing performed at [facility] Erythrocyte distribution width (RBC) [Ratio] 16.7 % High 11.5-14.5 [facility] Comment on above: Performed By: #### L STR #### Testing performed at [facility] Hematocrit (Bld) [Volume fraction] 27.4 % Low 42.0-52.0 [facility] Comment on above: Performed By: #### L STR #### Testing performed at [facility] Hemoglobin (Bld) [Mass/Vol] 8.8 g/dL Low 14.0-18.0 [facility] Comment on above: Performed By: #### L STR #### Testing performed at [facility] MCH (RBC) [Entitic mass] 23.1 pg Low 26.0-35.0 [facility] Comment on above: Performed By: #### L STR #### Testing performed at [facility] MCHC (RBC) [Mass/Vol] 32.1 g/dL Normal 27.0-37.0 [facility] Comment on above: Performed By: #### L STR #### Testing performed at [facility] MCV (RBC) [Entitic vol] 72.1 fL Low 80.0-100.0 [facility] Comment on above: Performed By: #### L STR #### Testing performed at [facility] Platelet mean volume (Bld) [Entitic vol] 7.7 fL Normal 7.4-11.0 [facility] Comment on above: Performed By: #### L STR #### Testing performed at [facility] Platelets (Bld) [#/Vol] 85 10*3/uL Low 130-400 [facility] Comment on above: Performed By: #### L STR #### Testing performed at [facility] RBC (Bld) [#/Vol] 3.81 10*6/uL Low 4.0-6.1 [facility] Comment on above: Performed By: #### L STR #### Testing performed at [facility] WBC (Bld) [#/Vol] 2.0 10*3/uL Low 3.6-11.0 [facility] Comment on above: Performed By: #### L STR #### Testing performed at [facility] ESRon 03-01-2023 ESR (Bld) [Velocity] 24 mm/h High 0-20 [facility] Comment on above: Performed By: #### L STR #### Testing performed at [facility] HCV RNA HERMAN QUAL RFX TO ABBIE Ton 03-01-2023 HCV RNA, QUANT Not detected Normal [facility] Comment on above: Result Comment: No e vidence of active HCV infection. Unit: IU/mL Performed By: #### A CBC ####[place] [address]#### LHCVF, LHCV ####Testing performed at [facility] TEST INFORMATION Comment Normal [facility] Comment on above: Result Comment: (NOT E) The quantitative range of this assay is 15 IU/mL to 100 million IU/mL. PERFORMED AT [facility] Performed By: #### A CBC ####[place] [address]#### LHCVF, LHCV ####Testing performed at [facility] LAST DOSEon 03-01-2023 LAST DOSE 7.11.23 @1500 Normal [facility] MAGNESIUMon 03-01-2023 Magnesium [Mass/Vol] 2.0 mg/dL Normal 1.6-2.3 [facility] Comment on above: Performed By: #### L STR #### Testing performed at [facility] RAPID TOX SCREEN,URINEon AMPHETAMINE Negative Normal NEGATIVE [facility] Comment on above: Result Comment: <500 ng/ml CUTOFF BARBITURATES Negative Normal NEGATIVE [facility] Comment on above: Result Comment: <200 ng/ml CUTOFF BENZODIAZEPINES Positive Abnormal NEGATIVE [facility] Comment on above: Result Comment: <150 ng/ml CUTOFF *Unconfirmed Screening Result* Unconfirmed screening results are to be used only for medical treatment purposes. BUPRENORPHINE Positive Abnormal NEGATIVE [facility] Comment on above: Result Comment: <10 ng/ml CUTOFF *Unconfirmed Screening Result* Unconfirmed screening results are to be used only for medical treatment purposes. CANNABINOIDS Negative Normal NEGATIVE [facility] Comment on above: Result Comment: <50 ng/ml CUTOFF COCAINE Positive Abnormal NEGATIVE [facility] Comment on above: Result Comment: <150 ng/ml CUTOFF *Unconfirmed Screening Result* Unconfirmed screening results are to be used only for medical treatment purposes. FENTANYL Negative Normal NEGATIVE [facility] Comment on above: Result Comment: 20 n g/mL CUTOFF *Unconfirmed Screening Result* Unconfirmed screening results are to be used only for medical treatment purposes. This test has not been approved by the FDA. METHADONE Negative Normal NEGATIVE [facility] Comment on above: Result Comment: <200 ng/ml CUTOFF METHAMPHETAMINE Negative Normal NEGATIVE [facility] Comment on above: Result Comment: <500 ng/ml CUTOFF OPIATES Positive Abnormal NEGATIVE [facility] Comment on above: Result Comment: <100 ng/ml CUTOFF *Unconfirmed Screening Result* Unconfirmed screening results are to be used only for medical treatment purposes. OXYCODONE Negative Normal NEGATIVE [facility] Comment on above: Result Comment: <100 ng/ml CUTOFF PHENCYCLIDINE Negative Normal NEGATIVE [facility] Comment on above: Result Comment: <25 ng/ml CUTOFF PROPOXYPHENE Negative Normal NEGATIVE [facility] Comment on above: Result Comment: <300 ng/ml CUTOFF TRICYCLIC ANTIDEPRESSANTS Negative Normal NEGATIVE [facility] Comment on above: Result Comment: <300 ng/ml CUTOFF RENAL PANEL,FASTINGon 2022 ALBUMIN 2.6 G/dl Low 3.5-5.0 [facility] Comment on above: Performed By: #### L STR #### Testing performed at [facility] Calcium [Mass/Vol] 7.5 mg/dL Low 8.4-10.2 [facility] Comment on above: Performed By: #### L STR #### Testing performed at [facility] Chloride [Moles/Vol] 108 mmol/L High 98-107 [facility] Comment on above: Result Comment: Krystian boyd note: Triglyceride levels of 600mg/dL or higher may positively bias chloride results by approximately 2.1 mmol Performed By: #### L STR #### Testing performed at [facility] CO2 [Moles/Vol] 25 mmol/L Normal 22-30 [facility] Comment on above: Performed By: #### L STR #### Testing performed at [facility] Creatinine [Mass/Vol] 0.49 mg/dL Low 0.7-1.2 [facility] Comment on above: Performed By: #### L STR #### Testing performed at [facility] EST. GFR, 226 ml/min/1.73sq.m [facility] Comment on above: Performed By: #### L STR #### Testing performed at [facility] EST. GFR,Non 187 ml/min/1.73sq.m [facility] Comment on above: Performed By: #### L STR #### Testing performed at [facility] GFR Information Average GFR for 50-5 9 years old = 93. Normal [facility] Comment on above: Result Comment: [employer] Kidney disease, GFR = <60. Kidney failure, GFR = <15. The GFR estimate is not adjusted for extreme body surface area or acute process, nor has it been validated for women or ethnic groups other than and . Performed By: #### L STR #### Testing performed at [facility] Glucose [Mass/Vol] 116 mg/dL High 70-100 [facility] Comment on above: Result Comment: NORMAL <100 mg/dL PREDIABETES 101-126 mg/dL DIABETES 126 mg/dL or higher Performed By: #### L STR #### Testing performed at [facility] PHOSPHOROUS 3.0 MG/DL Normal 2.5-4.5 [facility] Comment on above: Performed By: #### L STR #### Testing performed at [facility] Potassium [Moles/Vol] 4.1 mmol/L Normal 3.5-5.1 [facility] Comment on above: Performed By: #### L STR #### Testing performed at [facility] Sodium [Moles/Vol] 137 mmol/L Normal 137-145 [facility] Comment on above: Performed By: #### L STR #### Testing performed at [facility] Urea nitrogen [Mass/Vol] 15 mg/dL Normal 7-20 [facility] Comment on above: Performed By: #### L STR #### Testing performed at [facility] C REACTIVE PROTEINon 023 CRP [Mass/Vol] 19.5 mg/L High 0-10 [facility] Comment on above: Performed By: #### L STR #### Testing performed at [facility] CBCon 02-28-2023 Basophils/100 WBC (Bld) 1 % Normal 0.0-2.0 [facility] Comment on above: Performed By: #### L STR #### Testing performed at [facility] DTYPE MANUAL DIFF Normal [facility] Comment on above: Performed By: #### L STR #### Testing performed at [facility] Eosinophils/100 WBC (Bld) 5 % Normal 0.0-11.0 [facility] Comment on above: Performed By: #### L STR #### Testing performed at [facility] Lymphocytes/100 WBC (Bld) 34 % Normal 20.0-55.0 [facility] Comment on above: Performed By: #### L STR #### Testing performed at [facility] Monocytes/100 WBC (Bld) 3 % Normal 0.0-10.0 [facility] Comment on above: Performed By: #### L STR #### Testing performed at [facility] Neutrophils/100 WBC (Bld) 57 % Normal 37.0-75.0 [facility] Comment on above: Performed By: #### L STR #### Testing performed at [facility] PLATELET COMMENT DECREASED Normal [facility] Comment on above: Performed By: #### L STR #### Testing performed at [facility] RBC morphology finding Nom (Bld) 1+ Normal [facility] Comment on above: Result Comment: MICR OCYTOSIS 1+ ANISOCYTE 1+ POIKILOCYTE Performed By: #### L STR #### Testing performed at [facility] Erythrocyte distribution width (RBC) [Ratio] 16.4 % High 11.5-14.5 [facility] Comment on above: Performed By: #### L STR #### Testing performed at [facility] Hematocrit (Bld) [Volume fraction] 29.3 % Low 42.0-52.0 [facility] Comment on above: Performed By: #### L STR #### Testing performed at [facility] Hemoglobin (Bld) [Mass/Vol] 9.4 g/dL Low 14.0-18.0 [facility] Comment on above: Performed By: #### L STR #### Testing performed at [facility] MCH (RBC) [Entitic mass] 23.1 pg Low 26.0-35.0 [facility] Comment on above: Performed By: #### L STR #### Testing performed at [facility] MCHC (RBC) [Mass/Vol] 31.9 g/dL Normal 27.0-37.0 [facility] Comment on above: Performed By: #### L STR #### Testing performed at [facility] MCV (RBC) [Entitic vol] 72.3 fL Low 80.0-100.0 [facility] Comment on above: Performed By: #### L STR #### Testing performed at [facility] Platelet mean volume (Bld) [Entitic vol] 7.7 fL Normal 7.4-11.0 [facility] Comment on above: Performed By: #### L STR #### Testing performed at [facility] Platelets (Bld) [#/Vol] 91 10*3/uL Low 130-400 [facility] Comment on above: Performed By: #### L STR #### Testing performed at [facility] RBC (Bld) [#/Vol] 4.05 10*6/uL Normal 4.0-6.1 [facility] Comment on above: Performed By: #### L STR #### Testing performed at [facility] WBC (Bld) [#/Vol] 1.7 10*3/uL Critically low 3.6-11.0 [facility] Comment on above: Result Comment: CALL ED TO AND READ BACK BY HARDY HUTCHINS RN AT [id number] KK Performed By: #### L STR #### Testing performed at [facility] ESRon 02-28-2023 ESR (Bld) [Velocity] 35 mm/h High 0-20 [facility] Comment on above: Performed By: #### L STR #### Testing performed at [facility] LAST DOSEon 02-28-2023 LAST DOSE 02.28.23 @1314 Normal [facility] MAGNESIUMon 02-28-2023 Magnesium [Mass/Vol] 2.2 mg/dL Normal 1.6-2.3 [facility] Comment on above: Performed By: #### A CBC ####[place] [address]#### LHCVF, LHCV ####Testing performed at [facility] RENAL PANEL,FASTINGon 2022 ALBUMIN 2.7 G/dl Low 3.5-5.0 [facility] Comment on above: Performed By: #### L STR #### Testing performed at [facility] Calcium [Mass/Vol] 7.6 mg/dL Low 8.4-10.2 [facility] Comment on above: Performed By: #### L STR #### Testing performed at [facility] Chloride [Moles/Vol] 107 mmol/L Normal 98-107 [facility] Comment on above: Result Comment: Plea se note: Triglyceride levels of 600mg/dL or higher may positively bias chloride results by approximately 2.1 mmol Performed By: #### L STR #### Testing performed at [facility] CO2 [Moles/Vol] 27 mmol/L Normal 22-30 [facility] Comment on above: Performed By: #### L STR #### Testing performed at [facility] Creatinine [Mass/Vol] 0.51 mg/dL Low 0.7-1.2 [facility] Comment on above: Performed By: #### L STR #### Testing performed at [facility] EST. GFR, 216 ml/min/1.73sq.m [facility] Comment on above: Performed By: #### L STR #### Testing performed at [facility] EST. GFR,Non 179 ml/min/1.73sq.m [facility] Comment on above: Performed By: #### L STR #### Testing performed at [facility] GFR Information Average GFR for 50-5 9 years old = 93. Normal [facility] Comment on above: Result Comment: [employer] Kidney disease, GFR = <60. Kidney failure, GFR = <15. The GFR estimate is not adjusted for extreme body surface area or acute process, nor has it been validated for women or ethnic groups other than and . Performed By: #### L STR #### Testing performed at [facility] Glucose [Mass/Vol] 152 mg/dL High 70-100 [facility] Comment on above: Result Comment: NORMAL <100 mg/dL PREDIABETES 101-126 mg/dL DIABETES 126 mg/dL or higher Performed By: #### L STR #### Testing performed at [facility] PHOSPHOROUS 2.9 MG/DL Normal 2.5-4.5 [facility] Comment on above: Performed By: #### L STR #### Testing performed at [facility] Potassium [Moles/Vol] 3.7 mmol/L Normal 3.5-5.1 [facility] Comment on above: Performed By: #### L STR #### Testing performed at [facility] Sodium [Moles/Vol] 137 mmol/L Normal 137-145 [facility] Comment on above: Performed By: #### L STR #### Testing performed at [facility] Urea nitrogen [Mass/Vol] 16 mg/dL Normal 7-20 [facility] Comment on above: Performed By: #### L STR #### Testing performed at [facility] US DUPLEX EXTREMITY DVT MARCUS Powers 02-28-2023 [...] 2. Shotty bilateral inguinal lymph nodes. Normal [facility] VANCOMYCIN TROUGHon 02-29-20 23 VANCOMYCIN TROUGH 19.5 UG/ML Normal -20 [facility] VANCOMYCIN TROUGH 16.0 UG/ML Normal 15-20 [facility] BLOOD CULTUREon 02-27-2023 Bacteria identified Cx Nom (Bld) SPECIMEN DESCRIPTION PERIPHERAL BLOOD DRAW SPECIAL REQUESTS right wrist CULTURE NO GROWTH 5 DAYS * Result Note: Testing performed at [place] [address] * REPORT STATUS 03/04/2023 * Result Note: FINAL * Normal [facility] Comment on above: Performed By: #### L STR #### Testing performed at [facility] Bacteria identified Cx Nom (Bld) SPECIMEN DESCRIPTION PERIPHERAL BLOOD DRAW SPECIAL REQUESTS LEFT FORARM CULTURE NO GROWTH 5 DAYS * Result Note: Testing performed at [place] [address] * REPORT STATUS 03/04/2023 * Result Note: FINAL * Normal [facility] Comment on above: Performed By: #### B LC #### Testing performed at [facility] [address] [place] [address] Testing performed at [facility] [address] [place] [address] C REACTIVE PROTEINon 023 CRP [Mass/Vol] 25.1 mg/L High 0-10 [facility] ESRon 02-27-2023 ESR (Bld) [Velocity] 32 mm/h High 0-20 [facility] HEMOGLOBIN A1Con 02-27-2023 Glucose [Mass/Vol] 91 mg/dL Normal [facility] HbA1c (Bld) [Mass fraction] 4.8 % Normal 0-6 [facility] Comment on above: Result Comment: NORMAL <5.7% PREDIABETES 5.7-6.4% DIABETES 6.5% OR HIGHER LACTATE,BLOODon 02-27-2023 Lactate [Moles/Vol] 1.0 mmol/L Normal 0.7-2.0 [facility] MRSA SCREENon 02-27-2023 MRSA DNA HERMAN+probe Ql (Unsp spec) Negative Normal NEGATIVE [facility] STAPH AUREUS SCREEN Positive Abnormal NEGATIVE [facility] Comment on above: Result Comment: TEST ING PERFORMED BY PCR PROCALCITONINon 02-27-2023 PROCALCITONIN 0.07 ng/mL Normal 0.00-0.49 [facility] Comment on above: Result Comment: PCT Interpretation Concentrations under 0.5 ng/mL do not exclude local infections of systemic infections in their initial stages (e.g. under six hours from onset of illness). PCT concentrations between 0.5 and 2.0 ng/mL should be interpreted with consideration of patient's history. In this range, it is recommended to retest PCT within 6 to 24 hours. Testing performed at [place] [id number] Performed By: #### P CT #### Testing performed at [place] [id number] CBC, EDIF, PLATELETon 2022 ABSOLUTE BASOPHIL COUNT 0.0 10*3/uL 0.0 - 0.2 10*3/uL [facility] Basophils/100 WBC (Bld) 0.2 % 0.0 - 2.0 % [facility] Differential cell count method Nom (Bld) AUTO DIFF % [facility] Eosinophils (Bld) [#/Vol] 0.1 10*3/uL 0.0 - 0.7 10*3/uL [facility] Eosinophils/100 WBC (Bld) 2.0 % 0.0 - 11.0 % [facility] Erythrocyte distribution width (RBC) [Ratio] 16.6 % High 11.5 - 14.5 % [facility] Hematocrit (Bld) [Volume fraction] 31.8 % Low 42.0 - 52.0 % [facility] Hemoglobin (Bld) [Mass/Vol] 10.0 g/dL Low [facility] Interpretation and review of laboratory results Abnormal [facility] Lymphocytes (Bld) [#/Vol] 0.6 10*3/uL Low 1.2 - 3.4 10*3/uL [facility] Lymphocytes/100 WBC (Bld) 19.7 % Low 20.0 - 55.0 % [facility] MCH (RBC) [Entitic mass] 22.5 pg Low 26.0 - 35.0 PG [facility] MCHC (RBC) [Mass/Vol] 31.4 g/dL [facility] MCV (RBC) [Entitic vol] 71.5 fL Low [facility] Monocytes (Bld) [#/Vol] 0.3 10*3/uL 0.0 - 0.7 10*3/uL [facility] Monocytes/100 WBC (Bld) 10.5 % High 0.0 - 10.0 % [facility] Neutrophils (Bld) [#/Vol] 1.9 10*3/uL 1.4 - 6.5 10*3/uL [facility] Neutrophils/100 WBC (Bld) 67.6 % 37.0 - 75.0 % [facility] Platelet mean volume (Bld) [Entitic vol] 8.5 fL [facility] Platelets (Bld) [#/Vol] 104 10*3/uL Low 130 - 400 10*3/uL [facility] RBC (Bld) [#/Vol] 4.44 10*6/uL 4.0 - 6.1 10*6/uL [facility] WBC (Bld) [#/Vol] 2.9 10*3/uL Low 3.6 - 11.0 10*3/uL [facility] COMPREHENSIVE METABOLIC PANE Ras 02-26-2023 Albumin [Mass/Vol] 3.2 G/dl Low 3.5 - 5.0 G/dl [facility] Albumin/Globulin [Mass ratio] 0.8 {ratio} RATIO [facility] ALP [Catalytic activity/Vol] 54 U/L [facility] ALT [Catalytic activity/Vol] 17 U/L NINF [facility] AST [Catalytic activity/Vol] 26 U/L [facility] Bilirubin [Mass/Vol] 1.1 mg/dL [facility] Calcium [Mass/Vol] 8.0 mg/dL Low [facility] Chloride [Moles/Vol] 100 mmol/L [facility] Comment on above: Please note: Triglyc eride levels of 600mg/dL or higher may positively bias chloride results by approximately 2.1 mmol CO2 [Moles/Vol] 31 mmol/L High [facility] Creatinine [Mass/Vol] 0.58 mg/dL Low [facility] GFR COMMENT Average GFR for 50-5 9 years old = 93. [facility] Comment on above: Chronic Kidney disea se, GFR = <60. Kidney failure, GFR = <15. The GFR estimate is not adjusted for extreme body surface area or acute process, nor has it been validated for women or ethnic groups other than and . GFR/1.73 sq M.predicted among blacks MDRD (S/P/Bld) [Vol rate/Area] 186 mL/min/{1.73_m2} ml/min/1.73s q.m [facility] GFR/1.73 sq M.predicted among non-blacks MDRD (S/P/Bld) [Vol rate/Area] 154 mL/min/{1.73_m2} ml/min/1.73s q.m [facility] Glucose post fast [Mass/Vol] 129 mg/dL High [facility] Comment on above: NORMAL <100 mg/dL PREDIABETES 101-126 mg/dL DIABETES 126 mg/dL or higher Interpretation and review of laboratory results Abnormal [facility] Potassium [Moles/Vol] 3.8 mmol/L [facility] Protein [Mass/Vol] 7.4 g/dL [facility] Sodium [Moles/Vol] 138 mmol/L [facility] Urea nitrogen [Mass/Vol] 17 mg/dL [facility] LACTATE, BLOODon 02-26-2023 Interpretation and review of laboratory results Abnormal [facility] Lactate [Moles/Vol] 3.0 mmol/L Critically high 0.7 - 2.0 mmol/L [facility] Comment on above: PLEASE REPEAT INITIA L CRITICAL IN 3 HOURS IF ED OR INPATIENT SEPSIS PATIENT Result called to read back by: CICI 02/26/2023 @ 21:48 by RAJAN [facility] MAGNESIUMon 02-26-2023 Magnesium [Mass/Vol] 1.9 mg/dL [facility] No Panel Informationon 02-26 [facility] PROTIME-INRon 02-26-2023 INR Coag (PPP) [Relative time] 1.25 {INR} High 0.85 - 1.10 [facility] Comment on above: 2.0-3.0 THERAPEUTIC RANGE 2.5-3.5 MECHANICAL VALVE RANGE Interpretation and review of laboratory results Abnormal [facility] PT Coag (PPP) [Time] 15.8 s High [facility] [place] [facility] WOUND DEBRIDEMENTon 01-19-20 KIEL Hoff 01/18/2023 [...] with the proposed plan, giving informed consent. [place] Protocol required: Yes. [place] Protocol is required. Preprocedure verification is complete [...] treatment: Procedure was tolerated well Complications: None [facility] Radiology Study observation (narrative) [facility] WOUND CULTUREon 12-31-2022 WOUND CULTURE SPECIMEN DESCRIPTION [...] MANUAL OF CLINICAL MICROBIOLOGY 7TH EDITION 1999 [id number] * * Result Note: THE GLYCOPEPTIDES AND LIPOPEPTIDES (VANCOMYCIN IN PARTICULAR) AND THE MACROLIDES ERYTHROMYCIN, CLARITHROMYCIN AND AZITHROMYCIN HAVE SHOWN ACTIVITY AGAINST CORYNEBACTERIUM SP. (MANUAL OF CLINICAL MICROBIOLOGY Y, ET. AL. [id number]). * * Result Note: ENTEROCOCCUS FAECALIS GROUP D * * Result Note: MODERATE GROWTH * * Result Note: Testing performed at [place], [place] [address] * REPORT STATUS 12/31/2022 * Result Note: FINAL * ORGANISM ENTEROCOCCUS FAECALIS GROUP D * Result Note: ENTEROCOCCUS FAECALIS GROUP D * METHOD LIV AMPICILLIN <=2 SUSCEPTIBLE PENICILLIN G 2 SUSCEPTIBLE VANCOMYCIN 1 SUSCEPTIBLE GENTAMICIN HIGH LEVEL RESISTANT STREPTOMYCIN HIGH LEVEL RESISTANT Normal [facility] Comment on above: Performed By: #### M G, TILA, WILNER, LIVR #### [place] [address] CELLULAR AND TISSUE-BASED DE ODUCT WOUND CAREon 12-28-2022 KIEL Hoff 12/28/2022 [...] Tolerated well, no immediate complications Complications: None [facility] Radiology Study observation (narrative) [facility] CELLULAR AND TISSUE-BASED DE ODUCT WOUND CAREon 12-21-2022 KIEL Hoff 12/21/2022 [...] Tolerated well, no immediate complications Complications: None [facility] Radiology Study observation (narrative) [facility] CT Head WO contraston 2022 IMPRESSION: 1. [...] scalp, possibly representing a contusion or scarring. [facility] Study observation (narrative) [facility] CT Head WO contrastOrdered B y: Dee Hernandez on 12-08-2022 [facility] Work Phone: DIAGNOSTIC UPPER ENDOSCOPYon 10-21-2022 [facility] [place] Gastro[facility]ology Patient Name: Carmen Gilman Procedure Date: 10/21/2022 1:12 PM Date of : 1965 Admit Type: Outpatient Age: 57 Room: Procedure Room #2 Gender: Male Note Status: Finalized Attending MD: Antony Suarez Jr., DO, [id number] Instrument Name: [id number] Procedure: Upper GI endoscopy Attending Participation: I personally performed the entire procedure. Indications: Cirrhosis with suspected esophageal varices Providers: Antony Suarez Jr., DO Referring MD: ANI WORLEY, DRAFTER AUTOMOTIVE DESIGN LAYOUT-PROCESS CAMERA OPERATOR Complications: No immediate complications. Estimated Blood Loss: [...] previous diet. Procedure Code(s): --- Professional --- 88880, Esophagogastroduodenoscopy, flexible, transoral; diagnostic, including collection of specimen(s) by brushing or washing, when performed (separate procedure) Diagnosis Code(s): --- Professional --- K74.60, Unspecified cirrhosis of liver I85.10, Secondary esophageal varices without bleeding K76.6, Portal hypertension K31.89, Other diseases of stomach and duodenum CPT copyright 2021 [employer]. All rights reserved. The codes documented in this report are preliminary and upon co (more content not included)... LAB, [facility] Radiology Study observation (narrative) [facility] CBC Auto Differentialon 03-24 Erythrocyte distribution width (RBC) [Entitic vol] 16.0 % High 11.6 - 14.8 % [facility] Hematocrit (Bld) [Volume fraction] 28.3 % Low 41 - 53 % [facility] Hemoglobin (Bld) [Mass/Vol] 8.9 g/dL Low 13.5 - 17.5 g/dL [facility] MCH (RBC) [Entitic mass] 21.5 pg Low 26 - 34 pg [facility] MCHC (RBC) [Mass/Vol] 31.4 g/dL 31 - 37 g/dL [facility] MCV (RBC) [Entitic vol] 68.5 fL Low 80 - 100 fL [facility] Nucleated RBC (Bld) [#/Vol] 0.00 10*3/uL [facility] Nucleated RBC/100 WBC (Bld) [Ratio] 0.0 % [facility] Platelets (Bld) [#/Vol] 85 10*3/uL Low [facility] RBC (Bld) [#/Vol] 4.13 10*6/uL Low [facility] ealth WBC (Bld) [#/Vol] 2.02 10*3/uL Low [facility] CBC and Diff Morphologyon Ovalocytes LM Ql (Bld) Few [facility] RBC morphology finding Nom (Bld) See Comment [facility] Comment on above: RBC Indices confirme d with manual peripheral smear review. [facility] CRP [Mass/Vol]on 04-21-2022 Interpretation and review of laboratory results Abnormal [facility] CRP, Inflammationon 04-21-20 CRP [Mass/Vol] 19.0 mg/L High NINF - 10.0 mg/L [facility] ESR Westergren method (Bld) [Velocity]on 04-21-2022 ESR (Bld) [Velocity] 57 mm/h High [facility] Interpretation and review of laboratory results Abnormal [facility] HbA1c (Bld) [Mass fraction]O rdered By: Camelia Romero on 04-21-2022 Average glucose Estimated from glycated hemoglobin (Bld) [Mass/Vol] 123 mg/dL High 68 - 114 mg/dL [facility] Interpretation and review of laboratory results Abnormal [facility] Normal: 4.0% - 5.6% Increased risk for diabetes: 5.7% - 6.4% Diabetes: >= 6.5% Pediatrics: No established reference range Estimated average glucose: 68-114 mg/dL [facility] Hemoglobin [id number] By: Libby Romero on 04-21-2022 HbA1c (Bld) [Mass fraction] 5.9 % High 4 - 5.6 % [facility] Magnesiumon 04-21-2022 Magnesium [Mass/Vol] 2.5 mg/dL High 1.6 - 2 .4 mg/dL [facility] Magnesium [Mass/Vol]on 04-21 Interpretation and review of laboratory results Abnormal [facility] Manual Differential panel (B ld)on 04-21-2022 Basophils (Bld) [#/Vol] 0.00 10*3/uL [facility] Basophils/100 WBC (Bld) 0.0 % [facility] Eosinophils (Bld) [#/Vol] 0.05 10*3/uL [facility] Eosinophils/100 WBC (Bld) 2.6 % [facility] Lymphocytes (Bld) [#/Vol] 0.40 10*3/uL Low [facility] Lymphocytes/100 WBC (Bld) 20.0 % [facility] Monocytes (Bld) [#/Vol] 0.05 10*3/uL Low [facility] Monocytes/100 WBC (Bld) 2.6 % [facility] Neutrophils (Bld) [#/Vol] 1.51 10*3/uL Low [facility] Neutrophils/100 WBC (Bld) 74.8 % [facility] No Panel Informationon 04-21 Interpretation and review of laboratory results Abnormal [facility] 1. Bilateral subcutaneous edema. 2. No acute fracture or dislocation identified in either knee. 3. Total right knee arthroplasty in place. JAR/jcw Workstation ID: [id number] [employer] RIS EXAMINATION: XR KNEE LEFT 2 VIEWS [...] There is edema in the subcutaneous tissues. [employer] Radames Villarreal Ala, DO - 04/21/2022 [...] DIAGNOSIS CODES: N17.9 MARLENE (acute kidney injury) ([facility]) COMPARISON: Left knee series October [...] arthroplasty in place. JAR/jcw Workstation ID: [id number] [facility] Renal function 2000 panelon 04-21-2022 Albumin [Mass/Vol] 2.3 g/dL Low 3.2 - 5.2 g/dL [facility] Anion gap [Moles/Vol] 9 mmol/L Low 10 - 20 mmol/L [facility] Calcium [Mass/Vol] 8.4 mg/dL 8.4 - 10. 2 mg/dL [facility] Chloride [Moles/Vol] 108 mmol/L 98 - 10 8 mmol/L [facility] Creatinine [Mass/Vol] 1.40 mg/dL High 0.50 - 1.30 mg/dL [facility] GFR/1.73 sq M.predicted CKD-EPI (S/P/Bld) [Vol rate/Area] 59 Low - PINF [facility] Comment on above: Estimated GFR was ca lculated using the 2020 CKD-EPI creatinine equation. Glucose [Mass/Vol] 104 mg/dL High 65 - 99 mg/dL [facility] HCO3 [Moles/Vol] 28 mmol/L 21 - 32 mmol/L [facility] Interpretation and review of laboratory results Abnormal [facility] Phosphate [Mass/Vol] 3.9 mg/dL 2.7 - 4 .5 mg/dL [facility] Potassium [Moles/Vol] 4.8 mmol/L 3.5 - 5.1 mmol/L [facility] Sodium [Moles/Vol] 140 mmol/L 135 - 145 mmol/L [facility] Urea nitrogen [Mass/Vol] 47 mg/dL High 8 - 25 mg/dL [facility] Urea nitrogen/Creatinine [Mass ratio] 33.6 mg/mg High 10 - 20 [facility] has implemented the eGFR calculation approach that does not have a coefficient for race that conforms to the NKF-ASN Task Force Recommendations. [facility] TSH DL <= 0.005 mIU/L Qnon 0 04-21-2022 Interpretation and review of laboratory results Normal [facility] TSH Qn 1.32 m[IU]/L [facility] US Renal and Bladderon 04-21 1. No hydronephrosis. 2. Splenomegaly. Workstation ID: [id number] [employer] EXAMINATION: US RENAL AND BLADDER HISTORY: ORDERING [...] is enlarged measuring up to 20.8 cm. [employer] RIS Rodolfo Garcia MD - 04/21/2022 EXAMINATION: US RENAL AND BLADDER HISTORY: ORDERING SYSTEM PROVIDED HISTORY: MARLENE, TECHNOLOGIST PROVIDED HISTORY: Illness/Other Reason for exam: MARLENE Cancer History: unknown Surgery, RadiationHistory: unknown Encounter Type: Initial Additional signs and symptoms: none ORDERING SYSTEM PROVIDED DIAGNOSIS CODES: L03.119 Cellulitis of lower extremity, unspecified laterality N17.9 MARLENE (acute kidney injury) ([facility]) I95.9 Hypotension, unspecified hypotension type [...] No hydronephrosis. 2. Splenomegaly. Workstation ID: [id number] [facility] Renal and BladderOrdered By: Rodolfo Garcia on 04-21-2022 [facility] Work Phone: Ultrasound duplex venous leg s bilaton 04-21-2022 Patient Info Name: CARMEN GILMAN Age: 56 years : 1965 Gender: Male Exam Date: 04/21/2022 7:12 AM Patient Status: Inpatient Android Framework Developer: Margi Lemon RVT Referring Physician: LINDA Owens; Indications R22.43 - Localized swelling, mass and lump, lower limb, bilateral Procedure Description 13626 Duplex examination using B-mode, color and spectral [...] DOC Menjivar DO on 04/21/2022 01:10 PM [employer] CV Luis Daniel Cao III, DO - 04/21/2022 Patient Info Name: CARMEN GILMAN Age: 56 years : 1965 Gender: Male Exam Date: 04/21/2022 7:12 AM Patient Status: Inpatient Android Framework Developer: Margi Lemon RVT Referring Physician: LINDA Owens; Indications R22.43 - Localized swelling, mass and lump, lower limb, bilateral Procedure Description 49868 Duplex examination using B-mode, color and spectral [...] DOC Menjivar DO on 04/21/2022 01:10 PM [facility] Radiology Study observation (narrative) [facility] Ultrasound duplex venous leg s bilatOrdered By: Luis Daniel Cao on 04-21-2022 [facility] Work Phone: UrinalysisOrdered By: David Vines on 04-21-2022 Bacteria Auto Ql (U) None Seen None Se en /hpf [facility] Bilirubin Ql (U) Negative Negative [facility] th Clarity Refractometry automated (U) Clear Clear [facility] Color (U) Yellow Colorless, Yellow [facility] Glucose Auto test strip (U) [Mass/Vol] Negative Negative mg/dL [facility] Hemoglobin Auto test strip Ql (U) Negative Negative [facility] Interpretation and review of laboratory results Normal [facility] Ketones (U) [Mass/Vol] Negative Negative mg/dL [facility] Leukocyte esterase Auto test strip Ql (U) Negative Negative [facility] Mucus Auto (Urine sed) [#/Area] Rare None Seen, Rare /lpf [facility] Nitrite Auto test strip Ql (U) Negative Negative [facility] pH (U) 6.0 [pH] 5 - 7 [facility] Protein (U) [Mass/Vol] Negative Negative mg/dL [facility] RBC Auto (Urine sed) [#/Area] 1 [facility] Specific gravity (U) [Rel density] 1.014 1.005 - 1.025 [facility] Urobilinogen (U) [Mass/Vol] mg/dL NINF - 2.0 mg/dL [facility] WBC Auto (Urine sed) [#/Area] 1 [facility] Microscopic examinat ion is performed on all urinalysis samples and only positive findings are reported. The test for blood on the chemical analytic portion of urinalysis may also be positive due to hemoglobinuria and myoglobinuria and if red blood cells are present they are quantified by microscopic examination. [facility] XR Chest 1 Viewon 04-21-2022 No acute cardiopulmonary process. [employer] Workstation ID: [id number] [employer] EXAMINATION: XR CHEST PA/AP 04/20/2022 2:55 pm [...] left calcaneal humeral joint are again noted. [employer] Radames Villarreal Ala, DO - 04/21/2022 EXAMINATION: [...] again noted. IMPRESSION: No acute cardiopulmonary process. [employer] Workstation ID: [id number] [facility] XR Chest 1 ViewOrdered By: Sandra Villarreal on 04-21-2022 [facility] Work Phone: XR Pelvis 1 View (Standard)o n 04-21-2022 No acute osseous abnormality of the pelvis is identified. [employer] Workstation ID: [id number] [employer] EXAMINATION: XR PELVIS 1 VIEW (STANDARD) 04/20/2022 [...] the acetabula. No acute fracture is visible. [facility] Radames Villarreal Ala, DO - 04/21/2022 [...] osseous abnormality of the pelvis is identified. [employer] Workstation ID: [id number] [facility] Alcohol, Medicalon 08-30-202 2 Ethanol [Mass/Vol] mg/dL NINF - 10 .00 mg/dL [facility] Comment on above: Alcohol cutoff: <10. 00 mg/dL = None Detected Basic metabolic 1998 panelon 04-20-2022 Anion gap [Moles/Vol] 10 mmol/L 10 - 20 mmol/L [facility] Chloride [Moles/Vol] 102 mmol/L 98 - 10 8 mmol/L [facility] Creatinine [Mass/Vol] 2.30 mg/dL High 0.50 - 1.30 mg/dL [facility] GFR/1.73 sq M.predicted CKD-EPI (S/P/Bld) [Vol rate/Area] 33 Low - PINF [facility] Comment on above: Estimated GFR was ca lculated using the 2020 CKD-EPI creatinine equation. Glucose [Mass/Vol] 111 mg/dL High 65 - 99 mg/dL [facility] HCO3 [Moles/Vol] 27 mmol/L 21 - 32 mmol/L [facility] Potassium [Moles/Vol] 5.0 mmol/L 3.5 - 5.1 mmol/L [facility] Sodium [Moles/Vol] 134 mmol/L Low 135 - 145 mmol/L [facility] Urea nitrogen [Mass/Vol] 71 mg/dL High 8 - 25 mg/dL [facility] Urea nitrogen/Creatinine [Mass ratio] 30.9 mg/mg High 10 - 20 [facility] has implemented the eGFR calculation approach that does not have a coefficient for race that conforms to the NKF-ASN Task Force Recommendations. [facility] CBC Auto Differentialon 03-24 Erythrocyte distribution width (RBC) [Entitic vol] 16.3 % High 11.6 - 14.8 % [facility] Hematocrit (Bld) [Volume fraction] 31.6 % Low 41 - 53 % [facility] Hemoglobin (Bld) [Mass/Vol] 10.0 g/dL Low 13.5 - 17.5 g/dL [facility] MCH (RBC) [Entitic mass] 21.7 pg Low 26 - 34 pg [facility] MCHC (RBC) [Mass/Vol] 31.6 g/dL 31 - 37 g/dL [facility] MCV (RBC) [Entitic vol] 68.7 fL Low 80 - 100 fL [facility] Nucleated RBC (Bld) [#/Vol] 0.00 10*3/uL [facility] Nucleated RBC/100 WBC (Bld) [Ratio] 0.0 % [facility] Platelets (Bld) [#/Vol] 102 10*3/uL Low [facility] RBC (Bld) [#/Vol] 4.60 10*6/uL [facility] WBC (Bld) [#/Vol] 3.28 10*3/uL Low [facility] CBC and Diff Morphologyon RBC morphology finding Nom (Bld) See Comment [facility] Comment on above: RBC Indices confirme d with manual peripheral smear review. EKGon 04-20-2022 Ordered by an unspec ified provider. [facility] EKG 12-leadon 04-20-2022 Carolina Solis MD 04/20/2022 3:15 PM EKG 12-lead Date/Time: 04/20/2022 3:15 PM Performed by: Carolina Solis MD Authorized by: Carolina Solis MD Interpreted by ED attending physician Comparison: not compared with previous ECG Rhythm: sinus rhythm BPM: 69 Conduction: conduction normal ST Segments: ST segments normal T Inversion: V2 normal DE interval normal QRS interval normal QT interval Clinical impression: non-specific ECG MUSE [facility] Ethanol [Mass/Vol]on 022 Interpretation and review of laboratory results Normal [facility] Hepatic function 2000 panelo n 04-20-2022 Albumin [Mass/Vol] 2.8 g/dL Low 3.2 - 5.2 g/dL [facility] ALP [Catalytic activity/Vol] 58 U/L 40 - 150 U/L [facility] ALT [Catalytic activity/Vol] 27 U/L 14 - 65 U/L [facility] AST [Catalytic activity/Vol] 30 U/L 0 - 45 U/L [facility] Bilirubin [Mass/Vol] 0.8 mg/dL 0 - 1.3 mg/dL [facility] Bilirubin.conjugated [Mass/Vol] 0.2 mg/dL 0 - 0.4 mg/dL [facility] Protein [Mass/Vol] 8.1 g/dL High 6 - 8 g/dL [facility] Lactate [Moles/Vol]on 2021 Interpretation and review of laboratory results Normal [facility] Lactic Acid, Plasmaon 2021 Lactate [Moles/Vol] 1.2 mmol/L 0.6 - 2 mmol/L [facility] Manual Differential panel (B ld)on 04-20-2022 Basophils (Bld) [#/Vol] 0.00 10*3/uL [facility] Basophils/100 WBC (Bld) 0.0 % [facility] Eosinophils (Bld) [#/Vol] 0.03 10*3/uL [facility] Eosinophils/100 WBC (Bld) 0.9 % [facility] Lymphocytes (Bld) [#/Vol] 0.60 10*3/uL Low [facility] Lymphocytes/100 WBC (Bld) 18.3 % [facility] Monocytes (Bld) [#/Vol] 0.26 10*3/uL Low [facility] Monocytes/100 WBC (Bld) 7.8 % [facility] Neutrophils (Bld) [#/Vol] 2.39 10*3/uL [facility] Neutrophils/100 WBC (Bld) 73.0 % [facility] NT Pro BNPon 04-20-2022 Natriuretic peptide.B prohormone N-Terminal [Mass/Vol] 106 pg/mL 0 - 300 pg/mL [facility] Natriuretic peptide.B prohor randi N-Terminal [Mass/Vol]on 04-20-2022 Interpretation and review of laboratory results Normal [facility] Pride Study Cut-offs Rule In: < /= 50 Years >450 pg/mL 51 Years - 75 Years >900 pg/mL 76 Years - 99 Years >1800 pg/mL Rule Out: All patients <300 pg/mL [facility] No Panel Informationon 04-20 [facility] Interpretation and review of laboratory results Abnormal [facility] Interpretation and review of laboratory results Abnormal [facility] Obtain VBG and performon [facility] POC Venous Blood Gas Panel-P ulmon 04-20-2022 Base excess Calc (BldV) [Moles/Vol] 1.3 mmol/L -2 - 2 [facility] CO2 (BldV) [Partial pressure] 49.3 mm[Hg] [facility] HCO3 (Bld) [Moles/Vol] 27.4 mmol/L 24 - 28 mmol/L [facility] Hematocrit (BldA) [Volume fraction] 30.0 % Low 41 - 53 % [facility] Hemoglobin (Bld) [Mass/Vol] 9.8 g/dL Low 13.5 - 17.5 g/dL [facility] Inhaled oxygen concentration 21 % [facility] Interpretation and review of laboratory results Abnormal [facility] Oxygen (BldV) [Partial pressure] 65 mm[Hg] High [facility] Oxygen saturation in Venous blood 91.9 % High 40 - 70 % [facility] pH (BldV) 7.35 [pH] 7.32 - 7.42 [facility] Specimen source Nom (Unsp spec) Not specified [facility] Base excess Calc (BldV) [Moles/Vol] 1.4 mmol/L -2 - 2 [facility] CO2 (BldV) [Partial pressure] 49.4 mm[Hg] [facility] HCO3 (Bld) [Moles/Vol] 27.5 mmol/L 24 - 28 mmol/L [facility] Hematocrit (BldA) [Volume fraction] 30.8 % Low 41 - 53 % [facility] Hemoglobin (Bld) [Mass/Vol] 10.1 g/dL Low 13.5 - 17.5 g/dL [facility] Inhaled oxygen concentration 21 % [facility] Interpretation and review of laboratory results Abnormal [facility] Oxygen (BldV) [Partial pressure] 63 mm[Hg] High [facility] Oxygen saturation in Venous blood 91.1 % High 40 - 70 % [facility] pH (BldV) 7.35 [pH] 7.32 - 7.42 [facility] Troponinon 04-20-2022 Delta Difference Troponin I 0 ng/L < -/+ 12 change [facility] Troponin I Delta Change No biomarker evidence of cardiac injury. [facility] Troponin I 3 ng/L NINF - 59 ng/L [facility] Delta Difference Troponin I ng/L < -/+ 12 change ng/L [facility] Troponin I Delta Change No biomarker evidence of cardiac injury. [facility] Troponin I ng/L NINF - 59 ng/L [facility] Troponin x 2 (Now and Repeat in 3 hours)on 04-20-2022 Delta Difference Troponin I ng/L < -/+ 12 change ng/L [facility] Troponin I Delta Change No biomarker evidence of cardiac injury. [facility] Troponin I ng/L NINF - 59 ng/L [facility] Troponin I 3 ng/L NINF - 59 ng/L [facility] Troponin I Interpretation Normal [facility] US Renal and Bladderon 04-20 Radiology Study observation (narrative) [facility] UrinalysisOrdered By: Kathleen Nick on 04-20-2022 Bacteria Auto Ql (U) None Seen None Se en /hpf [facility] Bilirubin Ql (U) Negative Negative [facility] th Clarity Refractometry automated (U) Clear Clear [facility] Color (U) Yellow Colorless, Yellow [facility] Glucose Auto test strip (U) [Mass/Vol] Negative Negative mg/dL [facility] Hemoglobin Auto test strip Ql (U) Negative Negative [facility] Interpretation and review of laboratory results Normal [facility] Ketones (U) [Mass/Vol] Negative Negative mg/dL [facility] Leukocyte esterase Auto test strip Ql (U) Negative Negative [facility] Mucus Auto (Urine sed) [#/Area] Rare None Seen, Rare /lpf [facility] Nitrite Auto test strip Ql (U) Negative Negative [facility] pH (U) 5.5 [pH] 5 - 7 [facility] Protein (U) [Mass/Vol] Negative Negative mg/dL [facility] RBC Auto (Urine sed) [#/Area] [facility] Specific gravity (U) [Rel density] 1.010 1.005 - 1.025 [facility] Urobilinogen (U) [Mass/Vol] mg/dL NINF - 2.0 mg/dL [facility] WBC Auto (Urine sed) [#/Area] [facility] Microscopic examinat ion is performed on all urinalysis samples and only positive findings are reported. The test for blood on the chemical analytic portion of urinalysis may also be positive due to hemoglobinuria and myoglobinuria and if red blood cells are present they are quantified by microscopic examination. [facility] Urine Drug Screenon 04-20-20 22 Amphetamines Ql (U) Not detected None Detected [facility] Comment on above: Urine Amphetamine Cu toff: < 1000 ng/mL = None Detected Barbiturates Screen Ql (U) Not detected None Detected [facility] Comment on above: Urine Barbiturates C utoff: < 200 ng/mL = None Detected Benzodiazepines Ql (U) Positive Abnormal None Detected [facility] Comment on above: Urine Benzodiazepine Cutoff: < 200 ng/mL = None Detected Buprenorphine Ql (U) Positive Abnormal None Detected [facility] Comment on above: Urine Buprenorphine Cutoff: < 5 ng/mL = None Detected Cannabinoids Screen Ql (U) Not detected None Detected [facility] Comment on above: Urine Cannabinoids C utoff: < 50 ng/mL = None Detected Cocaine Ql (U) Positive Abnormal None Detected [facility] Comment on above: Urine Cocaine Cutoff : < 300 ng/mL = None Detected fentaNYL+Norfentanyl Screen Ql (U) Not detected None Detected [facility] Comment on above: Urine Fentanyl Cutof f: < 1 ng/mL = None Detected Interpretation and review of laboratory results Abnormal [facility] Methadone Screen Ql (U) Not detected None Detected [facility] Comment on above: Urine Methadone Cuto ff: < 300 ng/mL = None Detected Opiates Screen Ql (U) Not detected None Detected [facility] Comment on above: Urine Opiates Cutoff : < 300 ng/mL = None Detected oxyCODONE Ql (U) Not detected None Detected [facility] Comment on above: Urine Oxycodone Cuto ff: < 100 ng/mL = None Detected Specimen will be kep t for 1 week, if the sample is adequate. Confirmation testing can be initiated by calling the lab within 1 week. Screen results should be used for treatment purposes only. [facility] XR Chest 1 Viewon 04-20-2022 Radiology Study observation (narrative) [facility] XR Knee Left 2 Views (Standa rd)on 04-20-2022 Radiology Study observation (narrative) [facility] XR Knee Right 2 Views (Stand no)on 04-20-2022 Radiology Study observation (narrative) [facility] XR Pelvis 1 View (Standard)o n 04-20-2022 Radiology Study observation (narrative) [facility] ALCOHOL (ETHANOL),BLOODon Ethanol [Mass/Vol] mg/dL [facility] Comment on above: INTOXICATION >80 MG/DL FATAL >400 MG/DL C REACTIVE PROTEINon 022 CRP [Mass/Vol] 39.4 mg/L High 0 - 10.0 MG/L [facility] Interpretation and review of laboratory results Abnormal [facility] CBC, EDIF, PLATELETon 2021 ABSOLUTE BASOPHIL COUNT 0.0 10*3/uL 0.0 - 0.2 10*3/uL [facility] Basophils/100 WBC (Bld) 0.8 % 0.0 - 2.0 % [facility] Differential cell count method Nom (Bld) AUTO DIFF % [facility] Eosinophils (Bld) [#/Vol] 0.00 10*3/uL 0.0 - 0.7 10*3/uL [facility] Eosinophils/100 WBC (Bld) 1.3 % 0.0 - 11.0 % [facility] Erythrocyte distribution width (RBC) [Ratio] 15.9 % High 11.5 - 14.5 % [facility] Hematocrit (Bld) [Volume fraction] 35.0 % Low 42.0 - 52.0 % [facility] Hemoglobin (Bld) [Mass/Vol] 11.0 g/dL Low [facility] Interpretation and review of laboratory results Abnormal [facility] Lymphocytes (Bld) [#/Vol] 0.80 10*3/uL Low 1.2 - 3.4 10*3/uL [facility] Lymphocytes/100 WBC (Bld) 20.4 % 20.0 - 55.0 % [facility] MCH (RBC) [Entitic mass] 21.8 pg Low 26.0 - 35.0 PG [facility] MCHC (RBC) [Mass/Vol] 31.3 g/dL [facility] MCV (RBC) [Entitic vol] 69.6 fL Low [facility] Monocytes (Bld) [#/Vol] 0.5 10*3/uL 0.0 - 0.7 10*3/uL [facility] Monocytes/100 WBC (Bld) 13.0 % High 0.0 - 10.0 % [facility] Neutrophils (Bld) [#/Vol] 2.4 10*3/uL 1.4 - 6.5 10*3/uL [facility] Neutrophils/100 WBC (Bld) 64.5 % 37.0 - 75.0 % [facility] Platelet mean volume (Bld) [Entitic vol] 8.2 fL [facility] Platelets (Bld) [#/Vol] 122 10*3/uL Low 130.0 - 400.0 10*3/uL [facility] RBC (Bld) [#/Vol] 5.03 10*6/uL 4.0 - 6.1 10*6/uL [facility] WBC (Bld) [#/Vol] 3.8 10*3/uL 3.6 - 11.0 10*3/uL [facility] COMPREHENSIVE METABOLIC PANE Ras 03-07-2022 Albumin [Mass/Vol] 3.0 G/dl Low 3.5 - 5.0 G/dl [facility] Albumin/Globulin [Mass ratio] 0.7 {ratio} Low [facility] ALP [Catalytic activity/Vol] 45 U/L [facility] ALT [Catalytic activity/Vol] 20 U/L [facility] AST [Catalytic activity/Vol] 34 U/L [facility] Bilirubin [Mass/Vol] 1.4 mg/dL High [facility] Calcium [Mass/Vol] 8.2 mg/dL Low [facility] Chloride [Moles/Vol] 87 mmol/L Low [facility] CO2 [Moles/Vol] 38 mmol/L High [facility] Creatinine [Mass/Vol] 0.82 mg/dL [facility] GFR COMMENT Average GFR for 50-5 9 years old = 93. [facility] Comment on above: Chronic Kidney disea se, GFR = <60. Kidney failure, GFR = <15. The GFR estimate is not adjusted for extreme body surface area or acute process, nor has it been validated for women or ethnic groups other than and . GFR/1.73 sq M.predicted among blacks MDRD (S/P/Bld) [Vol rate/Area] 125 mL/min/{1.73_m2} ml/min/1.73s q.m [facility] GFR/1.73 sq M.predicted among non-blacks MDRD (S/P/Bld) [Vol rate/Area] 104 mL/min/{1.73_m2} ml/min/1.73s q.m [facility] Glucose post fast [Mass/Vol] 148 mg/dL High [facility] Comment on above: NORMAL <100 mg/dL PREDIABETES 101-126 mg/dL DIABETES 126 mg/dL or higher Interpretation and review of laboratory results Abnormal [facility] Potassium [Moles/Vol] 3.4 mmol/L Low [facility] Protein [Mass/Vol] 7.6 g/dL [facility] Sodium [Moles/Vol] 132 mmol/L Low [facility] Urea nitrogen [Mass/Vol] 12 mg/dL [facility] LACTATE, BLOODon 03-07-2022 Lactate [Moles/Vol] 1.5 mmol/L 0.7 - 2. 0 mmol/L [facility] No Panel Informationon 03-07 [facility] PROTIME-INRon 03-07-2022 INR Coag (PPP) [Relative time] 1.22 {INR} High [facility] Comment on above: 2.0-3.0 THERAPEUTIC RANGE 2.5-3.5 MECHANICAL VALVE RANGE Interpretation and review of laboratory results Abnormal [facility] Coag (PPP) [Time] 15.5 s [facility] [employer] [facility] PTTon 03-07-2022 aPTT Coag (Bld) [Time] 32.5 s [facility] Comment on above: CARDIAC AND PE/DVT THERAPUTIC RANGE 69-97 SEC VASCULAR/THREATENED LIMB THERAPUTIC RANGE 80-112 SEC OMsignal [facility] SEDIMENTATION RATE, AUTOMATE Don 03-07-2022 ESR (Bld) [Velocity] 118 mm/h [facility] [employer] Interpretation and review of laboratory results Abnormal [facility] XR Tibia and Fibula - right Viewson [...] modality for the evaluation of acute osteomyelitis. [facility] Radiology Study observation (narrative) [facility] X[facility] Tibia and Fibula - right ViewsOrdered By: Connie Madden on 03-07-2022 [facility] Work Phone: ISSAC MULTIPLEX SCRN WITH REFL EXon 11-15-2021 Nuclear Ab Ql (S) Negative [facility] Comment on above: Reference range: Neg ative PERFORMED AT [facility] B12 & FOLATEon 11-15-2021 Cobalamin (Vitamin B12) [Mass/Vol] 303 pg/mL 180 - 914 PG/ML [facility] Folate [Mass/Vol] 14.3 ng/mL >5.9 NG/ML [facility] C REACTIVE PROTEINon 022 CRP [Mass/Vol] 18.0 mg/L High 0 - 10.0 MG/L [facility] CBC, EDIF, PLATELETon 2021 ABSOLUTE BASOPHIL COUNT 0.0 10*3/uL 0.0 - 0.2 10*3/uL [facility] Basophils/100 WBC (Bld) 0.2 % 0.0 - 2.0 % [facility] Differential cell count method Nom (Bld) AUTO DIFF % [facility] Eosinophils (Bld) [#/Vol] 0.10 10*3/uL 0.0 - 0.7 10*3/uL [facility] Eosinophils/100 WBC (Bld) 2.9 % 0.0 - 11.0 % [facility] Erythrocyte distribution width (RBC) [Ratio] 15.8 % High 11.5 - 14.5 % [facility] Hematocrit (Bld) [Volume fraction] 30.4 % Low 42.0 - 52.0 % [facility] Hemoglobin (Bld) [Mass/Vol] 9.7 g/dL Low [facility] Interpretation and review of laboratory results Abnormal [facility] Lymphocytes (Bld) [#/Vol] 0.60 10*3/uL Low 1.2 - 3.4 10*3/uL [facility] Lymphocytes/100 WBC (Bld) 27.4 % 20.0 - 55.0 % [facility] MCH (RBC) [Entitic mass] 22.0 pg Low 26.0 - 35.0 PG [facility] MCHC (RBC) [Mass/Vol] 32.0 g/dL [facility] MCV (RBC) [Entitic vol] 68.7 fL Low [facility] Monocytes (Bld) [#/Vol] 0.2 10*3/uL 0.0 - 0.7 10*3/uL [facility] Monocytes/100 WBC (Bld) 9.9 % 0.0 - 10.0 % [facility] Neutrophils (Bld) [#/Vol] 1.4 10*3/uL 1.4 - 6.5 10*3/uL [facility] Neutrophils/100 WBC (Bld) 59.6 % 37.0 - 75.0 % [facility] Platelet mean volume (Bld) [Entitic vol] 8.5 fL [facility] Platelets (Bld) [#/Vol] 109 10*3/uL Low 130.0 - 400.0 10*3/uL [facility] RBC (Bld) [#/Vol] 4.42 10*6/uL 4.0 - 6.1 10*6/uL [facility] WBC (Bld) [#/Vol] 2.3 10*3/uL Low 3.6 - 11.0 10*3/uL [facility] DIRECT ANTIGLOBULIN TEST (DA T)on 11-15-2021 Direct antiglobulin test.poly specific reagent Ql (RBC) Negative [facility] FERRITINon 11-15-2021 Ferritin [Mass/Vol] 230 ng/mL [facility] HEPATIC FUNCTION PANELon Albumin [Mass/Vol] 4.3 g/dL [facility] ALP [Catalytic activity/Vol] 31 U/L Low [facility] ALT [Catalytic activity/Vol] 31 U/L [facility] AST [Catalytic activity/Vol] 40 U/L [facility] Bilirubin [Mass/Vol] 1.4 mg/dL High [facility] Bilirubin.direct [Mass/Vol] 0.3 mg/dL High [facility] Protein [Mass/Vol] 7.2 g/dL [facility] IRON/IRON BINDING/TRANSFERRI Non 11-15-2021 Iron [Mass/Vol] 89 ug/dL [facility] Iron binding capacity [Mass/Vol] 190 Low [facility] Iron saturation [Mass fraction] 47 % [facility] MAGNESIUMon 11-15-2021 Magnesium [Mass/Vol] 1.6 mg/dL [facility] No Panel Informationon 11-15 [facility] Interpretation and review of laboratory results Abnormal [facility] PROTIME-INRon 11-15-2021 INR Coag (PPP) [Relative time] 1.21 {INR} High [facility] Comment on above: 2.0-3.0 THERAPEUTIC RANGE 2.5-3.5 MECHANICAL VALVE RANGE Interpretation and review of laboratory results Abnormal [facility] PT Coag (PPP) [Time] 15.4 s [facility] RENAL FUNCTION PANELon 11-15 Albumin [Mass/Vol] 4.3 G/dl 3.5 - 5.0 G/dl [facility] Calcium [Mass/Vol] 9.7 mg/dL [facility] Chloride [Moles/Vol] 95 mmol/L Low [facility] CO2 [Moles/Vol] 29 mmol/L [facility] Creatinine [Mass/Vol] 0.68 mg/dL [facility] GFR COMMENT Average GFR for 50-5 9 years old = 93. [facility] Comment on above: Chronic Kidney disea se, GFR = <60. Kidney failure, GFR = <15. The GFR estimate is not adjusted for extreme body surface area or acute process, nor has it been validated for women or ethnic groups other than and . GFR/1.73 sq M.predicted among blacks MDRD (S/P/Bld) [Vol rate/Area] 156 mL/min/{1.73_m2} ml/min/1.73s q.m [facility] GFR/1.73 sq M.predicted among non-blacks MDRD (S/P/Bld) [Vol rate/Area] 129 mL/min/{1.73_m2} ml/min/1.73s q.m [facility] Glucose post fast [Mass/Vol] 94 mg/dL [facility] Comment on above: NORMAL <100 mg/dL PREDIABETES 101-126 mg/dL DIABETES 126 mg/dL or higher Interpretation and review of laboratory results Abnormal [facility] Phosphate [Mass/Vol] 3.9 mg/dL [facility] Potassium [Moles/Vol] 3.6 mmol/L [facility] Sodium [Moles/Vol] 137 mmol/L [facility] Urea nitrogen [Mass/Vol] 23 mg/dL High [facility] SEDIMENTATION RATE, AUTOMATE Don 11-15-2021 ESR (Bld) [Velocity] 25 mm/h High [facility] Interpretation and review of laboratory results Abnormal [facility] ISSAC MULTIPLEX SCRN WITH REFL EXon 11-14-2021 Nuclear Ab Ql (S) Negative [facility] Comment on above: Reference range: Neg ative PERFORMED AT [facility] C REACTIVE PROTEINon 022 CRP [Mass/Vol] 19.7 mg/L High 0 - 10.0 MG/L [facility] CBC, EDIF, PLATELETon 2021 ABSOLUTE BASOPHIL COUNT 0.0 10*3/uL 0.0 - 0.2 10*3/uL [facility] DIFFERENTIAL TYPE MANUAL DIFF % [facility] Comment on above: CORRECTED ON 11/14 A T 0734: PREVIOUSLY REPORTED AUTO DIFF Eosinophils (Bld) [#/Vol] 0.10 10*3/uL 0.0 - 0.7 10*3/uL [facility] Erythrocyte distribution width (RBC) [Ratio] 16.4 % High 11.5 - 14.5 % [facility] Hematocrit (Bld) [Volume fraction] 29.0 % Low 42.0 - 52.0 % [facility] Hemoglobin (Bld) [Mass/Vol] 9.3 g/dL Low [facility] Interpretation and review of laboratory results Abnormal [facility] Lymphocytes (Bld) [#/Vol] 0.60 10*3/uL Low 1.2 - 3.4 10*3/uL [facility] Lymphocytes/100 WBC (Bld) 44 % 20.0 - 55.0 % [facility] Comment on above: CORRECTED ON 11/14 A T 0734: PREVIOUSLY REPORTED 28.1 MCH (RBC) [Entitic mass] 22.2 pg Low 26.0 - 35.0 PG [facility] MCHC (RBC) [Mass/Vol] 32.2 g/dL [facility] MCV (RBC) [Entitic vol] 69.0 fL Low [facility] Monocytes (Bld) [#/Vol] 0.2 10*3/uL 0.0 - 0.7 10*3/uL [facility] Monocytes/100 WBC (Bld) 8 % 0.0 - 10.0 % [facility] Comment on above: CORRECTED ON 11/14 A T 0734: PREVIOUSLY REPORTED 7.9 Morphology Julián (Bld) [Interp] 2+ [facility] Comment on above: MICROCYTOSIS 2+ ANISOCYTE 1+ TARGET CELLS Neutrophils (Bld) [#/Vol] 1.4 10*3/uL 1.4 - 6.5 10*3/uL [facility] Neutrophils/100 WBC (Bld) 48 % 37.0 - 75.0 % [facility] Comment on above: CORRECTED ON 11/14 A T 0734: PREVIOUSLY REPORTED 61.2 Platelet mean volume (Bld) [Entitic vol] 9.0 fL [facility] Platelet morphology finding Nom (Bld) DECREASED [facility] Platelets (Bld) [#/Vol] 123 10*3/uL Low 130.0 - 400.0 10*3/uL [facility] RBC (Bld) [#/Vol] 4.20 10*6/uL 4.0 - 6.1 10*6/uL [facility] WBC (Bld) [#/Vol] 2.3 10*3/uL Low 3.6 - 11.0 10*3/uL [facility] CT Pulmonary arteries for pu [...] left atrial enlargement. LAD calcifications. 4. Splenomegaly. [facility] Radiology Study observation (narrative) [facility] CT Pulmonary arteries for pu lmonary embolusOrdered By: Leandro Rodriguez on 11-14-2021 [facility] Work Phone: FIBRINOGEN, CLOTTABLEon 10-21 Fibrinogen Coag (PPP) [Mass/Vol] 254.0 mg/dL 171 - 562 mg/dL [facility] HEPATIC FUNCTION PANELon Albumin [Mass/Vol] 4.1 g/dL [facility] ALP [Catalytic activity/Vol] 26 U/L Low [facility] ALT [Catalytic activity/Vol] 26 U/L [facility] AST [Catalytic activity/Vol] 30 U/L [facility] Bilirubin [Mass/Vol] 1.8 mg/dL High [facility] Bilirubin.direct [Mass/Vol] 0.3 mg/dL High [facility] Protein [Mass/Vol] 6.9 g/dL [facility] HEPATITIS A, B, Con 11-15-19 22 HBV surface Ag IA Ql Negative NEGATIVE [facility] Hep A AB (IGG + IGM) Positive Abnormal NEGATIVE [facility] Comment on above: Specimen is positive for HAV, sent to reference lab for HAVAb, IgM. Positive indicates a reactive sample and the presence of HAV Ab, individual has been previously infected or is presumed to be immune to HAV infection. HEP B CORE AB,TOTAL(IGG+IGM) Reactive Abnormal NEGATIVE [facility] Comment on above: Specimen is presumed reactive for HBc Ab Hep B Surf AB Negative Abnormal POSITIVE [facility] Comment on above: Clinical Interpretation of Immune Status Negative: patient is considered to be not immune to infection with HBV Intermediate: unable to determine if anti-HBs is present at levels consistent with immunity Positive: anti-HBs detected, patient is considered to be immune to infection with HBV HEP C AB Reactive Abnormal NEGATIVE [facility] Comment on above: HCV Ab IgG detected, patient is presumed to be infected, state or associated disease not determined Interpretation and review of laboratory results Abnormal [facility] MAGNESIUMon 11-14-2021 Magnesium [Mass/Vol] 1.9 mg/dL [facility] No Panel Informationon 11-14 Interpretation and review of laboratory results Abnormal [facility] PROCALCITONINon 11-14-2021 PROCALCITONIN 0.06 ng/mL 0.00 - 0.49 ng/mL [facility] Comment on above: PCT Interpretation Concentrations under 0.5 ng/mL do not exclude local infections of systemic infections in their initial stages (e.g. under six hours from onset of illness). PCT concentrations between 0.5 and 2.0 ng/mL should be interpreted with consideration of patient's history. In this range, it is recommended to retest PCT within 6 to 24 hours. Testing performed at [place], [place] [address] [facility] PROTIME-INRon 11-14-2021 INR Coag (PPP) [Relative time] 1.23 {INR} High [facility] Comment on above: 2.0-3.0 THERAPEUTIC RANGE 2.5-3.5 MECHANICAL VALVE RANGE Interpretation and review of laboratory results Abnormal [facility] PT Coag (PPP) [Time] 15.7 s [facility] RENAL FUNCTION PANELon 11-14 Albumin [Mass/Vol] 4.1 G/dl 3.5 - 5.0 G/dl [facility] Calcium [Mass/Vol] 8.9 mg/dL [facility] Chloride [Moles/Vol] 103 mmol/L [facility] CO2 [Moles/Vol] 25 mmol/L [facility] Creatinine [Mass/Vol] 0.58 mg/dL Low [facility] GFR COMMENT Average GFR for 50-5 9 years old = 93. [facility] Comment on above: Chronic Kidney disea se, GFR = <60. Kidney failure, GFR = <15. The GFR estimate is not adjusted for extreme body surface area or acute process, nor has it been validated for women or ethnic groups other than and . GFR/1.73 sq M.predicted among blacks MDRD (S/P/Bld) [Vol rate/Area] 187 mL/min/{1.73_m2} ml/min/1.73s q.m [facility] GFR/1.73 sq M.predicted among non-blacks MDRD (S/P/Bld) [Vol rate/Area] 155 mL/min/{1.73_m2} ml/min/1.73s q.m [facility] Glucose post fast [Mass/Vol] 94 mg/dL [facility] Comment on above: NORMAL <100 mg/dL PREDIABETES 101-126 mg/dL DIABETES 126 mg/dL or higher Interpretation and review of laboratory results Abnormal [facility] Phosphate [Mass/Vol] 2.9 mg/dL [facility] Potassium [Moles/Vol] 4.2 mmol/L [facility] Sodium [Moles/Vol] 136 mmol/L [facility] Urea nitrogen [Mass/Vol] 25 mg/dL High [facility] SEDIMENTATION RATE, AUTOMATE Don 11-14-2021 ESR (Bld) [Velocity] 15 mm/h [facility] [place] [facility] URIC ACIDon 11-14-2021 Urate [Mass/Vol] 5.4 mg/dL [facility] XR Foot - right 3 Viewson IMPRESSION: [...] have mildly progressed as compared to 03/02/2018. [facility] Radiology Study observation (narrative) [facility] XR Foot - right 3 ViewsOrder ed By: Sofía Corral on 11-14-2021 [facility] Work Phone: B-TYPE NATRIURETIC PEPTIDE ( BRAIN)on 11-13-2021 Natriuretic peptide B (Bld) [Mass/Vol] 72 pg/mL 0 - 100 pg/mL [facility] CBC, EDIF, PLATELETon 2021 ABSOLUTE BASOPHIL COUNT 0.0 10*3/uL 0.0 - 0.2 10*3/uL [facility] Basophils/100 WBC (Bld) 0 % 0.0 - 2.0 % [facility] Comment on above: CORRECTED ON 11/13 A T 1129: PREVIOUSLY REPORTED 0.3 Differential cell count method Nom (Bld) AUTO DIFF % [facility] Eosinophils (Bld) [#/Vol] 0.10 10*3/uL 0.0 - 0.7 10*3/uL [facility] Eosinophils/100 WBC (Bld) 2 % 0.0 - 11.0 % [facility] Comment on above: CORRECTED ON 11/13 A T 1129: PREVIOUSLY REPORTED 1.9 Erythrocyte distribution width (RBC) [Ratio] 16.1 % High 11.5 - 14.5 % [facility] Hematocrit (Bld) [Volume fraction] 31.2 % Low 42.0 - 52.0 % [facility] Hemoglobin (Bld) [Mass/Vol] 9.9 g/dL Low [facility] Interpretation and review of laboratory results Abnormal [facility] Lymphocytes (Bld) [#/Vol] 0.60 10*3/uL Low 1.2 - 3.4 10*3/uL [facility] Lymphocytes/100 WBC (Bld) 18 % Low 20.0 - 55.0 % [facility] Comment on above: CORRECTED ON 11/13 A T 1129: PREVIOUSLY REPORTED 18.4 MCH (RBC) [Entitic mass] 22.0 pg Low 26.0 - 35.0 PG [facility] MCHC (RBC) [Mass/Vol] 31.8 g/dL [facility] MCV (RBC) [Entitic vol] 69.4 fL Low [facility] Monocytes (Bld) [#/Vol] 0.3 10*3/uL 0.0 - 0.7 10*3/uL [facility] Monocytes/100 WBC (Bld) 11 % High 0.0 - 10.0 % [facility] Comment on above: CORRECTED ON 11/13 A T 1129: PREVIOUSLY REPORTED 10.6 Morphology Julián (Bld) [Interp] 1+ [facility] Comment on above: ANISOCYTE 1+ POIKILOCYTE 1+ TARGET CELLS 1+ MICROCYTOSIS Neutrophils (Bld) [#/Vol] 2.1 10*3/uL 1.4 - 6.5 10*3/uL [facility] Neutrophils/100 WBC (Bld) 69 % 37.0 - 75.0 % [facility] Comment on above: CORRECTED ON 11/13 A T 1129: PREVIOUSLY REPORTED 68.8 Platelet mean volume (Bld) [Entitic vol] 8.2 fL [facility] Platelet morphology finding Nom (Bld) DECREASED [facility] Platelets (Bld) [#/Vol] 101 10*3/uL Low 130.0 - 400.0 10*3/uL [facility] RBC (Bld) [#/Vol] 4.49 10*6/uL 4.0 - 6.1 10*6/uL [facility] WBC (Bld) [#/Vol] 3.0 10*3/uL Low 3.6 - 11.0 10*3/uL [facility] ABSOLUTE BASOPHIL COUNT 0.0 10*3/uL 0.0 - 0.2 10*3/uL [facility] Basophils/100 WBC (Bld) 0.3 % 0.0 - 2.0 % [facility] Differential cell count method Nom (Bld) AUTO DIFF % [facility] Eosinophils (Bld) [#/Vol] 0.10 10*3/uL 0.0 - 0.7 10*3/uL [facility] Eosinophils/100 WBC (Bld) 2.8 % 0.0 - 11.0 % [facility] Erythrocyte distribution width (RBC) [Ratio] 16.0 % High 11.5 - 14.5 % [facility] Hematocrit (Bld) [Volume fraction] 34.5 % Low 42.0 - 52.0 % [facility] Hemoglobin (Bld) [Mass/Vol] 10.9 g/dL Low [facility] Interpretation and review of laboratory results Abnormal [facility] Lymphocytes (Bld) [#/Vol] 0.80 10*3/uL Low 1.2 - 3.4 10*3/uL [facility] Lymphocytes/100 WBC (Bld) 25.2 % 20.0 - 55.0 % [facility] MCH (RBC) [Entitic mass] 22.1 pg Low 26.0 - 35.0 PG [facility] MCHC (RBC) [Mass/Vol] 31.6 g/dL [facility] MCV (RBC) [Entitic vol] 70.0 fL Low [facility] Monocytes (Bld) [#/Vol] 0.4 10*3/uL 0.0 - 0.7 10*3/uL [facility] Monocytes/100 WBC (Bld) 11.6 % High 0.0 - 10.0 % [facility] Neutrophils (Bld) [#/Vol] 2.0 10*3/uL 1.4 - 6.5 10*3/uL [facility] Neutrophils/100 WBC (Bld) 60.1 % 37.0 - 75.0 % [facility] Platelet mean volume (Bld) [Entitic vol] 8.4 fL [facility] Platelets (Bld) [#/Vol] 118 10*3/uL Low 130.0 - 400.0 10*3/uL [facility] RBC (Bld) [#/Vol] 4.93 10*6/uL 4.0 - 6.1 10*6/uL [facility] WBC (Bld) [#/Vol] 3.3 10*3/uL Low 3.6 - 11.0 10*3/uL [facility] CKon 11-13-2021 CK [Catalytic activity/Vol] 69 U/L [facility] COMPREHENSIVE METABOLIC PANE Ras 11-13-2021 Albumin [Mass/Vol] 3.5 G/dl 3.5 - 5.0 G/dl [facility] Albumin/Globulin [Mass ratio] 1.1 {ratio} Low [facility] ALP [Catalytic activity/Vol] 46 U/L [facility] ALT [Catalytic activity/Vol] 29 U/L [facility] AST [Catalytic activity/Vol] 29 U/L [facility] Bilirubin [Mass/Vol] 1.0 mg/dL [facility] Calcium [Mass/Vol] 8.4 mg/dL [facility] Chloride [Moles/Vol] 107 mmol/L [facility] CO2 [Moles/Vol] 26 mmol/L [facility] Creatinine [Mass/Vol] 1.12 mg/dL [facility] GFR COMMENT Average GFR for 50-5 9 years old = 93. [facility] Comment on above: Chronic Kidney disea se, GFR = <60. Kidney failure, GFR = <15. The GFR estimate is not adjusted for extreme body surface area or acute process, nor has it been validated for women or ethnic groups other than and . GFR/1.73 sq M.predicted among blacks MDRD (S/P/Bld) [Vol rate/Area] 88 mL/min/{1.73_m2} ml/min/1.73s q.m [facility] GFR/1.73 sq M.predicted among non-blacks MDRD (S/P/Bld) [Vol rate/Area] 72 mL/min/{1.73_m2} ml/min/1.73s q.m [facility] Glucose post fast [Mass/Vol] 143 mg/dL High [facility] Comment on above: NORMAL <100 mg/dL PREDIABETES 101-126 mg/dL DIABETES 126 mg/dL or higher Interpretation and review of laboratory results Abnormal [facility] Potassium [Moles/Vol] 4.2 mmol/L [facility] Protein [Mass/Vol] 6.7 g/dL [facility] Sodium [Moles/Vol] 140 mmol/L [facility] Urea nitrogen [Mass/Vol] 30 mg/dL High [facility] D-DIMER,QUANTITATIVEon 11-13 Fibrin D-dimer FEU (PPP) [Mass/Vol] 9.66 Critically high <0.50 mg/L FEU [facility] Comment on above: If result is greater than the cutoff value of 0.50 mg/L then the potential for PE or DVT exists. Other conditions exist which may cause a falsely elevated level. Please correlate clinically, including radiological findings and other clinical parameters. Result called to read back by: Sandra CANSECO 11/13/2021 @ 11:02 by [facility] Interpretation and review of laboratory results Abnormal [facility] MAGNESIUMon 11-13-2021 Magnesium [Mass/Vol] 2.1 mg/dL [facility] [place] [facility] RHEUMATOID FACTORon 11-14-19 Interpretation and review of laboratory results Abnormal [facility] RHEUMATOID FACTOR 441.1 High <12 Iu/mL [facility] SCREEN: MRSA ONLY, NARES (IS OLATION SCREEN)on 11-13-2021 Interpretation and review of laboratory results Abnormal [facility] MRSA isol Org specific cx Ql (Nose) Not detected NOT DETECTED [facility] STAPHYOCOCCUS AUREUS BY PCR Detected Abnormal NOT DETECTED [facility] Comment on above: Testing performed at [place], [place] [address] [facility] US.doppler Extremity vessels - bilateralon 11-13-2021 IMPRESSION: [...] edema. IMPRESSION IMPRESSION: No visualized venous thrombus [facility] Radiology Study observation (narrative) [facility] ALCOHOL (ETHANOL),BLOODon Ethanol [Mass/Vol] mg/dL [facility] Comment on above: INTOXICATION >80 MG/DL FATAL >400 MG/DL CBC, EDIF, PLATELETon 2021 ABSOLUTE BASOPHIL COUNT 0.0 10*3/uL 0.0 - 0.2 10*3/uL [facility] Basophils/100 WBC (Bld) 0.5 % 0.0 - 2.0 % [facility] Differential cell count method Nom (Bld) AUTO DIFF % [facility] Eosinophils (Bld) [#/Vol] 0.10 10*3/uL 0.0 - 0.7 10*3/uL [facility] Eosinophils/100 WBC (Bld) 1.5 % 0.0 - 11.0 % [facility] Erythrocyte distribution width (RBC) [Ratio] 16.0 % High 11.5 - 14.5 % [facility] Hematocrit (Bld) [Volume fraction] 34.1 % Low 42.0 - 52.0 % [facility] Hemoglobin (Bld) [Mass/Vol] 11.0 g/dL Low [facility] Interpretation and review of laboratory results Abnormal [facility] Lymphocytes (Bld) [#/Vol] 1.10 10*3/uL Low 1.2 - 3.4 10*3/uL [facility] Lymphocytes/100 WBC (Bld) 16.4 % Low 20.0 - 55.0 % [facility] MCH (RBC) [Entitic mass] 22.2 pg Low 26.0 - 35.0 PG [facility] MCHC (RBC) [Mass/Vol] 32.3 g/dL [facility] MCV (RBC) [Entitic vol] 68.9 fL Low [facility] Monocytes (Bld) [#/Vol] 0.8 10*3/uL High 0.0 - 0.7 10*3/uL [facility] Monocytes/100 WBC (Bld) 13.1 % High 0.0 - 10.0 % [facility] Neutrophils (Bld) [#/Vol] 4.4 10*3/uL 1.4 - 6.5 10*3/uL [facility] Neutrophils/100 WBC (Bld) 68.5 % 37.0 - 75.0 % [facility] Platelet mean volume (Bld) [Entitic vol] 7.8 fL [facility] Platelets (Bld) [#/Vol] 146 10*3/uL 130.0 - 400.0 10*3/uL [facility] RBC (Bld) [#/Vol] 4.95 10*6/uL 4.0 - 6.1 10*6/uL [facility] WBC (Bld) [#/Vol] 6.5 10*3/uL 3.6 - 11.0 10*3/uL [facility] COMPREHENSIVE METABOLIC PANE Ras 11-12-2021 Albumin [Mass/Vol] 3.3 G/dl Low 3.5 - 5.0 G/dl [facility] Albumin/Globulin [Mass ratio] 0.9 {ratio} Low [facility] ALP [Catalytic activity/Vol] 46 U/L [facility] ALT [Catalytic activity/Vol] 32 U/L [facility] AST [Catalytic activity/Vol] 32 U/L [facility] Bilirubin [Mass/Vol] 0.9 mg/dL [facility] Calcium [Mass/Vol] 8.4 mg/dL [facility] Chloride [Moles/Vol] 98 mmol/L [facility] CO2 [Moles/Vol] 24 mmol/L [facility] Creatinine [Mass/Vol] 2.54 mg/dL High [facility] GFR COMMENT Average GFR for 50-5 9 [...] rate/Area] 34 mL/min/{1.73_m2} ml/min/1.73s q.m [facility] GFR/1.73 sq M.predicted among non-blacks MDRD (S/P/Bld) [Vol rate/Area] 28 mL/min/{1.73_m2} ml/min/1.73s q.m [facility] Glucose post fast [Mass/Vol] 133 mg/dL High [facility] Comment on above: NORMAL <100 mg/dL PREDIABETES 101-126 mg/dL DIABETES 126 mg/dL or higher Interpretation and review of laboratory results Abnormal [facility] Potassium [Moles/Vol] 4.2 mmol/L [facility] Protein [Mass/Vol] 7.0 g/dL [facility] Sodium [Moles/Vol] 131 mmol/L Low [facility] Urea nitrogen [Mass/Vol] 40 mg/dL High [facility] CT Abdomen and Pelvis WO [...] values is recommended to evaluate for pancreatitis. [facility] Radiology Study observation (narrative) [facility] CT Abdomen and Pelvis WO con trastOrdered By: Paulino Marcos on 11-12-2021 [facility] Work Phone: LACTATE, BLOODon 11-12-2021 Lactate [Moles/Vol] 1.7 mmol/L 0.7 - 2. 0 mmol/L [facility] LIPASEon 11-12-2021 Lipase [Catalytic activity/Vol] 56 U/L 23 - 300 U/L [facility] MAGNESIUMon 11-12-2021 Magnesium [Mass/Vol] 2.0 mg/dL [facility] NOVEL CORONAVIRUS LAB 1 - NA SOPHARYNGEALon 11-12-2021 NARRATIVE -1 This test was perfor med using isothermal HERMAN and has been approved as Emergency Use Authorization (EUA) for the qualitative detection [id number] nucleic acid. [facility] SARS-CoV-2 (COVID-19) RNA HERMAN+probe Ql (Unsp spec) Not detected NOT DETECTED [facility] Comment on above: Negative results do not [...] patient is critically ill or clinically deteriorating. [facility] No Panel Informationon 11-12 Interpretation and review of laboratory results Abnormal [facility] PROTIME-INRon 11-12-2021 INR Coag (PPP) [Relative time] 1.11 {INR} [facility] Comment on above: 2.0-3.0 THERAPEUTIC RANGE 2.5-3.5 MECHANICAL VALVE RANGE Testing performed at [place] [address] Interpretation and review of laboratory results Abnormal [facility] PT Coag (PPP) [Time] 14.5 s [facility] PTTon 11-12-2021 aPTT Coag (Bld) [Time] 31.9 s [facility] Comment on above: CARDIAC AND PE/DVT THERAPUTIC RANGE 69-97 SEC VASCULAR/THREATENED LIMB THERAPUTIC RANGE 80-112 SEC Testing performed at [address] Portable XR Chest Views APon 11-12-2021 [...] prior study, the lungs are now clear. [facility] Study observation (narrative) [facility] Portable XR Chest Views APOr dered By: Bryson Smith on 11-12-2021 [facility] Work Phone: TOXICOLOGY DRUG SCREEN, URIN Jonathan 11-12-2021 Amphetamine (U) [Mass/Vol] Negative NEGATIVE NG/ML [facility] Comment on above: <500 ng/ml [facility] Barbiturates Screen Ql (U) Negative NEGATIVE NG/ML [facility] Comment on above: <200 ng/ml [facility] Benzodiazepines Ql (U) Negative NEGATIVE NG/ML [facility] Comment on above: <150 ng/ml [facility] Benzoylecgonine Ql (U) Positive Abnormal NEGATIVE NG/ML [facility] Comment on above: <150 ng/ml C[facility]OFF *Unconfirmed Screening Result* Unconfirmed screening results are to be used only for medical treatment purposes. Buprenorphine Confirm (Qing) [Mass/Vol] Positive Abnormal NEGATIVE NG/ML [facility] Comment on above: <10 ng/ml CUTOFF *Unconfirmed Screening Result* Unconfirmed screening results are to be used only for medical treatment purposes. CORRECTED ON 11/12 AT 2103: PREVIOUSLY REPORTED NEGATIVE <10 ng/ml [facility] Cannabinoids Screen Ql (U) Positive Abnormal NEGATIVE NG/ML [facility] Comment on above: <50 ng/ml CUTOFF *Unconfirmed Screening Result* Unconfirmed screening results are to be used only for medical treatment purposes. Interpretation and review of laboratory results Abnormal [facility] Methadone Screen Ql (U) Negative NEGATIVE NG/ML [facility] Comment on above: <200 ng/ml C[facility] Methamphetamine (U) [Mass/Vol] Negative NEGATIVE NG/ML [facility] Comment on above: <500 ng/ml [facility] Opiates Screen Ql (U) Negative NEGATIVE NG/ML [facility] Comment on above: <100 ng/ml C[facility]OFF oxyCODONE Ql (U) Negative NEGATIVE NG/ML [facility] Comment on above: <100 ng/ml [facility] Phencyclidine Screen method >25 ng/mL Ql (U) Negative NEGATIVE NG/ML [facility] Comment on above: <25 ng/ml [facility] Propoxyphene+Norprop oxyphene Screen Ql (U) Negative NEGATIVE NG/ML [facility] Comment on above: <300 ng/ml [facility] Tricyclic antidepressants Screen Ql (U) Negative NEGATIVE NG/ML [facility] Comment on above: <300 ng/ml CUTOFF [facility] TROPONIN I, HIGH SENSITIVITY on 11-12-2021 TROPONIN I, HIGH SENSITIVITY 4 pg/mL 0 - 20 pg/mL [facility] Comment on above: Indeterminant: >12 to 100 pg/mL female >20 to 100 pg/mL male Indicative of myocardial injury. Serial sampling is recommended, a change of greater than or equal to 20 pg/mL is indicative of acute coronary syndrome. URINALYSIS, MACROon 11-13-19 22 Bilirubin Ql (U) MODERATE Abnormal NEGATIVE [facility] Clarity (U) CLEAR CLEAR [facility] Color (U) YELLOW YELLOW [facility] Glucose Test strip (U) [Mass/Vol] Negative NEGATIVE mg/dl [facility] Hemoglobin Ql (U) Negative NEGATIVE [facility] Ketones (U) [Mass/Vol] 15 mg/dL Abnormal NEGATIVE [facility] Leukocyte esterase Test strip Ql (U) Negative NEGATIVE [facility] Nitrite Ql (U) Negative NEGATIVE [facility] pH (U) 5.5 [pH] [facility] Protein Ql (U) 100 mg/dl Abnormal NEGATIVE [facility] Specific gravity (U) [Rel density] 1.020 [facility] Urobilinogen (U) [Mass/Vol] 1.0 mg/dL [facility] URINE MICROSCOPICon 11-13-19 22 Bacteria LM.HPF (Urine sed) [#/Area] Negative NEGATIVE [facility] Casts LM.LPF (Urine sed) [#/Area] RARE Abnormal NONE /LPF [facility] Comment on above: HYALINE Crystals LM Nom (Urine sed) NONE NONE [facility] Epithelial cells LM Ql (Urine sed) 1 TO 5 /HPF [facility] Mucus Ql (Urine sed) TRACE Abnormal NEGATIVE [facility] RBC LM.HPF (Urine sed) [#/Area] Negative NEGATIVE /HPF [facility] Urine sediment comments LM Julián (Urine sed) CULTURE CRITERIA NOT MET, NO CULTURE PERFORMED. [facility] WBC LM.HPF (Urine sed) [#/Area] Negative NEGATIVE /HPF [facility] No Panel Informationon 10-07 [facility] IMPRESSION: 1. Remote ununited fracture deformity of [...] remote healed left rib fractures are present. [facility] XR KNEE LEFT 3 VIEWSon 10-07 IMPRESSION: [...] proximal fibula. 3. Mild tricompartmental degenerative changes. [facility] Radiology Study observation (narrative) [facility] XR RIBS LEFTon 10-07-2021 Radiology Study observation (narrative) [facility] XR SHOULDER LEFT MIN 2 VIEWS on 10-07-2021 Radiology Study observation (narrative) [facility] ECHOCARDIOGRAM COMPLETE W CO NTRASTon 06-04-2021 ECHOCARDIOGRAM COMPLETE W CONTRAST Patient Info Name: CARMEN GILMAN Age: 55 years : 1965 Gender: Male Ht: 173 cm Wt: 118 kg BSA: 2.43 m2 HR: 64 bpm BP: 100 / 52 mmHg Heart Rhythm: Sinus Rhythm Technical Quality: Technically difficult, Poor Exam Date: 06/04/2021 6:48 AM Patient Status: Inpatient Registered Nurse Obstetrics: [place] [facility] Exam Type: ECHOCARDIOGRAM COMPLETE W CONTRAST Study Info Indications I50.9 - Heart failure, unspecified Referring Physician: [id number] Shepherd; [id number] Reason for Poor Study: poor patient cooperation [...] mmHg MV VTI 33 cm MV Decel [place] 311 cm/s2 MV PHT 76 ms MV Area (PHT) 2.9 cm2 4.0-5.0 MV Area (Cont Eq VTI) 3.1 cm2 MV Area Index (Cont Eq VTI) 1.27 cm2/m2 MV Diastolic Function (more content not included)... Normal [facility] COVID-19, MOLECULARon 2020 SARS-CoV-2 (COVID-19) RNA HERMAN+probe Ql (Unsp spec) Not detected Normal Not Detected [facility] Comment on above: Order Comment: This test [...] at the following links: For Healthcare Providers: https://www.fda.gov/media/211858/download For Patients: https://www.fda.gov/media/469325/download Performed By: #### L [id number] #### [facility] [address], [place] [address] Jack Mendoza M.D. [id number] CT ANGIOGRAM CHEST ABDOMEN P ELVISon 06-03-2021 CT ANGIOGRAM CHEST ABDOMEN PELVIS EXAMINATION: CT ANGIOGRAM CHEST ABDOMEN PELVIS 06/03/2021 HISTORY: ORDERING SYSTEM PROVIDED HISTORY: Sepsis, TECHNOLOGIST PROVIDED HISTORY: Illness/Other Reason for Exam: Pt found down Encounter Type: Initial Additional Signs and Symptoms: ORDERING SYSTEM PROVIDED DIAGNOSIS CODES: J96.00 Acute respiratory failure, unspecified whether with hypoxia or hypercapnia ([facility]) R41.82 Altered mental status, unspecified altered mental status type R79.89 Elevated lactic acid level F19.10 Polysubstance abuse (HCC) R09.2 Respiratory arrest (HCC) J96.02 Acute hypercapnic respiratory failure (HCC) J96.01 Acute hypoxemic respiratory failure (HCC) J44.1 COPD with acute exacerbation ([facility]) R73.9 Hyperglycemia I10 Hypertension, unspecified type D72.829 Leukocytosis, unspecified type F12.10 Marijuana abuse F14.10 Nondependent cocaine abuse ([facility]) E87.2 Respiratory acidosis COMPARISON: CT [...] The heart size seems normal. There are [id number] coronary artery calcifications. The pericardium appears normal. [...] but no secondary signs of acute appendicitis. [employer] Workstation ID: [id number] Dictated by: LARRY SMITH on TueJun 04, 2021 1:15:48 AM EDT Transcribed by: ROSA GAMBLE on TueJun 04, 2021 1:46:50 AM EDT Finalized by: LARRY SMITH on [facility] Jun 04, 2021 2:02:27 AM EDT Normal [facility] Comment on above: Order Comment: Injur y/Trauma [...] TueJun 03, 2021 4:21:22 PM EDT Normal [facility] Comment on above: Order Comment: Injur y/Trauma [...] within normal limits for the patient's age. [facility] Eran Barksdale MD - 04/04/2021 EXAM: XR [...] great toe. FOLLOW-UP: Follow-up as clinically indicated. [facility] Radiology Study observation (narrative) [facility] XR FOOT LEFT 3 VIEWSOrdered By: Eran Barksdale on 04-04-2021 [facility] Work Phone: XR Toe(s) Left 2+ ViewsOrder ed By: Saulo Joseph on 02-02-2021 1. No identifiable radiopaque foreign bodies are identified. 2. No definite fractures or dislocations. 3. Degenerative changes as described above. VALERIEV/karyn Workstation ID: [id number] [facility] EXAMINATION: XR TOE(S) LEFT 2+ [...] There is no obvious fracture or dislocation. [facility] Interface, Rad In Fu ji [...] as described above. VALERIEV/manuelr Workstation ID: [id number] [facility] Basic Metabolic Panelon 11-20 Anion gap [Moles/Vol] 8 mmol/L Low 10 - 20 mmol/L [facility] Calcium [Mass/Vol] 8.2 mg/dL Low 8.4 - 10. 2 mg/dL [facility] Chloride [Moles/Vol] 107 mmol/L 98 - 10 8 mmol/L [facility] Creatinine [Mass/Vol] 0.73 mg/dL 0.50 - 1.30 [facility] GFR/1.73 sq M predicted among non-blacks MDRD (S/P/Bld) [Vol rate/Area] The eGFR should be used for monitoring renal function only and not for medication dosing. [facility] GFR/1.73 sq M.predicted CKD-EPI (S/P/Bld) [Vol rate/Area] 105 >=60 mL/min/1.73 m2 [facility] Glucose [Mass/Vol] 203 mg/dL High 65 - 99 mg/dL [facility] HCO3 [Moles/Vol] 26 mmol/L 21 - 32 mmol/L [facility] Interpretation and review of laboratory results Abnormal [facility] Potassium [Moles/Vol] 4.3 mmol/L 3.5 - 5.1 mmol/L [facility] Sodium [Moles/Vol] 137 mmol/L 135 - 145 mmol/L [facility] Urea nitrogen [Mass/Vol] 18 mg/dL 8 - 25 mg/dL [facility] Urea nitrogen/Creatinine [Mass ratio] 24.7 mg/mg High [facility] CBC WITH AUTO DIFFERENTIALon 12-04-2020 Basophils (Bld) [#/Vol] 0.00 10*3/uL [facility] Basophils/100 WBC (Bld) 0.0 % [facility] Eosinophils (Bld) [#/Vol] 0.00 10*3/uL [facility] Eosinophils/100 WBC (Bld) 0.0 % [facility] Erythrocyte distribution width (RBC) [Entitic vol] 16.2 % High 11.6 - 14.8 % [facility] Hematocrit (Bld) [Volume fraction] 32.9 % Low 41.0 - 53.0 % [facility] Hemoglobin (Bld) [Mass/Vol] 10.5 g/dL Low 13.5 - 17.5 g/dL [facility] Immature granulocytes (Bld) [#/Vol] 0.04 10*3/uL [facility] Immature granulocytes/100 WBC (Bld) 0.80 % [facility] Comment on above: The IG parameter is the percentage of metamyelocytes, myelocytes and promyelocytes. An immature granulocyte count (IG) of 1% or more suggests the possibility of infection, an IG count of 3% is very likely related to an infection. Interpretation and review of laboratory results Abnormal [facility] Lymphocytes (Bld) [#/Vol] 0.41 10*3/uL Low [facility] Lymphocytes/100 WBC (Bld) 8.0 % [facility] MCH (RBC) [Entitic mass] 22.5 pg Low 26.0 - 34.0 pg [facility] MCHC (RBC) [Mass/Vol] 31.9 g/dL 31.0 - 37.0 g/dL [facility] MCV (RBC) [Entitic vol] 70.6 fL Low 80.0 - 100.0 fL [facility] Monocytes (Bld) [#/Vol] 0.10 10*3/uL Low [facility] Monocytes/100 WBC (Bld) 1.9 % [facility] Neutrophils (Bld) [#/Vol] 4.60 10*3/uL [facility] Neutrophils/100 WBC (Bld) 89.3 % [facility] Platelet mean volume (Bld) [Entitic vol] 9.4 fL 9.4 - 12.4 fL [facility] Platelets (Bld) [#/Vol] 100 10*3/uL Low [facility] RBC (Bld) [#/Vol] 4.66 10*6/uL [facility] ealth WBC (Bld) [#/Vol] 5.15 10*3/uL [facility] BMPon 12-03-2020 Anion gap [Moles/Vol] 9 mmol/L Low 10 - 20 mmol/L [facility] Calcium [Mass/Vol] 8.2 mg/dL Low 8.4 - 10. 2 mg/dL [facility] Chloride [Moles/Vol] 105 mmol/L 98 - 10 8 mmol/L [facility] Creatinine [Mass/Vol] 0.64 mg/dL 0.50 - 1.30 [facility] GFR/1.73 sq M predicted among non-blacks MDRD (S/P/Bld) [Vol rate/Area] The eGFR should be used for monitoring renal function only and not for medication dosing. [facility] GFR/1.73 sq M.predicted CKD-EPI (S/P/Bld) [Vol rate/Area] 111 >=60 mL/min/1.73 m2 [facility] Glucose [Mass/Vol] 126 mg/dL High 65 - 99 mg/dL [facility] HCO3 [Moles/Vol] 27 mmol/L 21 - 32 mmol/L [facility] Interpretation and review of laboratory results Abnormal [facility] Potassium [Moles/Vol] 3.8 mmol/L 3.5 - 5.1 mmol/L [facility] Sodium [Moles/Vol] 137 mmol/L 135 - 145 mmol/L [facility] Urea nitrogen [Mass/Vol] 15 mg/dL 8 - 25 mg/dL [facility] Urea nitrogen/Creatinine [Mass ratio] 23.4 mg/mg High [facility] CBC WITH AUTO DIFFERENTIALon 12-03-2020 Basophils (Bld) [#/Vol] 0.01 10*3/uL [facility] Basophils/100 WBC (Bld) 0.2 % [facility] Eosinophils (Bld) [#/Vol] 0.03 10*3/uL [facility] Eosinophils/100 WBC (Bld) 0.5 % [facility] Erythrocyte distribution width (RBC) [Entitic vol] 16.3 % High 11.6 - 14.8 % [facility] Hematocrit (Bld) [Volume fraction] 33.1 % Low 41.0 - 53.0 % [facility] Hemoglobin (Bld) [Mass/Vol] 10.7 g/dL Low 13.5 - 17.5 g/dL [facility] Immature granulocytes (Bld) [#/Vol] 0.01 10*3/uL [facility] Immature granulocytes/100 WBC (Bld) 0.20 % [facility] Comment on above: The IG parameter is the percentage of metamyelocytes, myelocytes and promyelocytes. An immature granulocyte count (IG) of 1% or more suggests the possibility of infection, an IG count of 3% is very likely related to an infection. Lymphocytes (Bld) [#/Vol] 0.50 10*3/uL Low [facility] Lymphocytes/100 WBC (Bld) 8.7 % [facility] MCH (RBC) [Entitic mass] 22.7 pg Low 26.0 - 34.0 pg [facility] MCHC (RBC) [Mass/Vol] 32.3 g/dL 31.0 - 37.0 g/dL [facility] MCV (RBC) [Entitic vol] 70.3 fL Low 80.0 - 100.0 fL [facility] Monocytes (Bld) [#/Vol] 0.46 10*3/uL [facility] Monocytes/100 WBC (Bld) 8.0 % [facility] Neutrophils (Bld) [#/Vol] 4.73 10*3/uL [facility] Neutrophils/100 WBC (Bld) 82.4 % [facility] Platelet mean volume (Bld) [Entitic vol] 9.5 fL 9.4 - 12.4 fL [facility] Platelets (Bld) [#/Vol] 101 10*3/uL Low [facility] RBC (Bld) [#/Vol] 4.71 10*6/uL [facility] WBC (Bld) [#/Vol] 5.74 10*3/uL [facility] COVID-19/Influenza A,B Molec ularon 12-03-2020 Influenza A Not Detected [facility] Not Detected Not Detected [facility] Interpretation and review of laboratory results Normal [facility] SARS-CoV-2 Not Detected Not Detected [facility] Comment on above: This test was perfor med under the FDA's Emergency Use Authorization (EUA). Testing was performed using the Xpert Xpress SARS-CoV-2 RT-PCR [employer] assay on the [employer] Partner Dx platform. This test has not been approved for use in asymptomatic patients and its performance in this patient population has not been evaluated. Negative results do not rule out the presence of SARS-CoV-2/COVID-19. Fact sheets for this EUA can be found at the following links: For Healthcare Providers: https://www.fda.gov/media/505561/download For Patients: https://www.fda.gov/media/429078/download ECG 12-LEADon 12-03-2020 Atrial Rate 86 BPM [facility] P [place] 72 degrees [facility] P-R Interval 148 ms [facility] Q-T Interval 372 ms [facility] QRS Duration 82 ms [facility] QTC Calculation (Bezet) 445 ms [facility] R [place] 56 degrees [facility] T [place] 56 degrees [facility] Ventricular Rate 86 BPM [facility] th Normal sinus rhythm Normal ECG ECG Cart Interpretation see physician note for interpretation. Confirmed by Whit Pearson ([id number]) on 12/03/2020 8:55:18 PM [facility] Gold Topo 12-03-2020 Extra Tube Hold for add-ons. [facility] Comment on above: Auto resulted. Lactic Acid, Plasmaon 2020 Interpretation and review of laboratory results Normal [facility] Lactate [Moles/Vol] 1.3 mmol/L 0.6 - 2. 0 mmol/L [facility] Light Blue Topon 12-03-2020 Extra Tube Hold for add-ons. [facility] Comment on above: Auto resulted. MORPHOLOGYon 12-03-2020 Platelets LM Ql (Bld) Decreased Abnormal Normal [facility] RBC morphology finding Nom (Bld) See Comment [facility] Comment on above: RBC Indices confirme d with manual peripheral smear review. Otheron 04-14-2021 Interpretation and review of laboratory results Abnormal [facility] POC Venous Blood Gaseson Base Excess, Kojo 0 [facility] th CO2 (BldV) [Partial pressure] 42.3 mm[Hg] [facility] HCO3 (Bld) [Moles/Vol] 25.5 mmol/L 24.0 - 28.0 mmol/L [facility] Hematocrit (Bld) [Volume fraction] 36 % Low 41 - 53 % [facility] Hemoglobin (Bld) [Mass/Vol] 12.2 g/dL Low 13.5 - 17.5 g/dL [facility] Interpretation and review of laboratory results Abnormal [facility] Oxygen (BldV) [Partial pressure] 54 mm[Hg] High [facility] Oxygen saturation in Venous blood 87.0 % High 40.0 - 70.0 % [facility] pH (BldV) 7.39 [pH] [facility] TROPONINon 12-03-2020 Troponin I.cardiac [Mass/Vol] No biomarker evidence of cardiac injury. [facility] Troponin I.cardiac [Mass/Vol] ng/mL <=45 ng/L [facility] Troponin I.cardiac [Mass/Vol] No biomarker evidence of cardiac injury. [facility] Troponin I.cardiac [Mass/Vol] ng/mL <=45 ng/L [facility] Troponin I.cardiac [Mass/Vol] Normal [facility] Troponin I.cardiac [Mass/Vol] ng/mL <=45 ng/L [facility] XR Chest 1 Viewon 12-03-2020 [...] left glenohumeral joint with possible intraarticular bodies. [facility] Interface, Rad In Fu ji [...] bibasilar pleural effusions. No overt pulmonary edema. [facility] Workstation ID: [id number] [facility] Ill-defined ground-g lass opacity at the right lung base, may be accentuated by positioning. Cannot exclude underlying pneumonia. Small bibasilar pleural effusions. No overt pulmonary edema. /Contests4Causes Workstation ID: [id number] [facility] CBC WITH AUTO DIFFERENTIALon 11-01-2020 Basophils (Bld) [#/Vol] 0.01 10*3/uL [facility] Basophils/100 WBC (Bld) 0.2 % [facility] Eosinophils (Bld) [#/Vol] 0.05 10*3/uL [facility] Eosinophils/100 WBC (Bld) 1.0 % [facility] Erythrocyte distribution width (RBC) [Entitic vol] 16.8 % High 11.6 - 14.8 % [facility] Hematocrit (Bld) [Volume fraction] 36.1 % Low 41.0 - 53.0 % [facility] Hemoglobin (Bld) [Mass/Vol] 11.3 g/dL Low 13.5 - 17.5 g/dL [facility] Immature granulocytes (Bld) [#/Vol] 0.03 10*3/uL [facility] Immature granulocytes/100 WBC (Bld) 0.60 % [facility] Comment on above: The IG parameter is the percentage of metamyelocytes, myelocytes and promyelocytes. An immature granulocyte count (IG) of 1% or more suggests the possibility of infection, an IG count of 3% is very likely related to an infection. Interpretation and review of laboratory results Abnormal [facility] Lymphocytes (Bld) [#/Vol] 0.79 10*3/uL Low [facility] Lymphocytes/100 WBC (Bld) 16.0 % [facility] MCH (RBC) [Entitic mass] 22.4 pg Low 26.0 - 34.0 pg [facility] MCHC (RBC) [Mass/Vol] 31.3 g/dL 31.0 - 37.0 g/dL [facility] MCV (RBC) [Entitic vol] 71.5 fL Low 80.0 - 100.0 fL [facility] Monocytes (Bld) [#/Vol] 0.35 10*3/uL [facility] Monocytes/100 WBC (Bld) 7.1 % [facility] Neutrophils (Bld) [#/Vol] 3.70 10*3/uL [facility] Neutrophils/100 WBC (Bld) 75.1 % [facility] Nucleated RBC (Bld) [#/Vol] 0.00 10*3/uL [facility] Nucleated RBC/100 WBC (Bld) [Ratio] 0.0 % [facility] Platelet mean volume (Bld) [Entitic vol] 9.4 fL 9.4 - 12.4 fL [facility] Platelets (Bld) [#/Vol] 123 10*3/uL Low [facility] RBC (Bld) [#/Vol] 5.05 10*6/uL [facility] WBC (Bld) [#/Vol] 4.93 10*3/uL [facility] Comprehensive Metabolic Pane ras 11-01-2020 Albumin [Mass/Vol] 3.2 g/dL 3.2 - 5.2 g/dL [facility] ALP [Catalytic activity/Vol] 79 U/L 40 - 150 U/L [facility] ALT [Catalytic activity/Vol] 48 U/L 14 - 65 U/L [facility] Anion gap [Moles/Vol] 7 mmol/L Low 10 - 20 mmol/L [facility] AST [Catalytic activity/Vol] 43 U/L 0 - 45 U/L [facility] Bilirubin [Mass/Vol] 1.2 mg/dL 0.0 - 1 .3 mg/dL [facility] Calcium [Mass/Vol] 8.5 mg/dL 8.4 - 10. 2 mg/dL [facility] Chloride [Moles/Vol] 106 mmol/L 98 - 10 8 mmol/L [facility] Creatinine [Mass/Vol] 0.59 mg/dL 0.50 - 1.30 [facility] GFR/1.73 sq M predicted among non-blacks MDRD (S/P/Bld) [Vol rate/Area] The eGFR should be used for monitoring renal function only and not for medication dosing. [facility] GFR/1.73 sq M.predicted CKD-EPI (S/P/Bld) [Vol rate/Area] 115 >=60 mL/min/1.73 m2 [facility] Glucose [Mass/Vol] 106 mg/dL High 65 - 99 mg/dL [facility] HCO3 [Moles/Vol] 27 mmol/L 21 - 32 mmol/L [facility] Interpretation and review of laboratory results Abnormal [facility] Potassium [Moles/Vol] 4.4 mmol/L 3.5 - 5.1 mmol/L [facility] Protein [Mass/Vol] 7.5 g/dL 6.0 - 8.0 g/dL [facility] Sodium [Moles/Vol] 136 mmol/L 135 - 145 mmol/L [facility] Urea nitrogen [Mass/Vol] 13 mg/dL 8 - 25 mg/dL [facility] Urea nitrogen/Creatinine [Mass ratio] 22.0 mg/mg High [facility] ECG 12-LEADon 11-01-2020 Atrial Rate 70 BPM [facility] P [place] 75 degrees [facility] P-R Interval 158 ms [facility] Q-T Interval 400 ms [facility] QRS Duration 82 ms [facility] QTC Calculation (Bezet) 432 ms [facility] R [place] 65 degrees [facility] T [place] 66 degrees [facility] Ventricular Rate 70 BPM [facility] Normal sinus rhythm Normal ECG ECG Cart Interpretation see physician note for interpretation. Confirmed by Whit Pearson ([id number]) on 11/01/2020 4:42:05 PM [facility] Light Blue Topon 11-01-2020 Extra Tube Hold for add-ons. [facility] Comment on above: Auto resulted. NT Pro BNPon 11-01-2020 Interpretation and review of laboratory results Normal [facility] Natriuretic peptide.B prohormone N-Terminal [Mass/Vol] 137 pg/mL 0 - 300 pg/mL [facility] Pride Study Cut-offs Rule In: < /= 50 Years >450 pg/mL 51 Years - 75 Years >900 pg/mL 76 Years - 99 Years >1800 pg/mL Rule Out: All patients <300 pg/mL [facility] TROPONINon 11-01-2020 Troponin I.cardiac [Mass/Vol] ng/mL <=45 ng/L [facility] Troponin I.cardiac [Mass/Vol] Normal [facility] XR Chest 1 Viewon 11-01-2020 [...] Chronic healed right posterior 8th rib fracture. [facility] No acute cardiopulmo nary process. ST/[facility]nb Workstation ID: [id number] [facility] Interface, Rad In Fu ji [...] acute cardiopulmonary process. ST/[facility] Workstation ID: [id number] [facility] CBC WITH AUTO DIFFERENTIALon 08-01-2020 Basophils (Bld) [#/Vol] 0.01 10*3/uL [facility] Basophils/100 WBC (Bld) 0.3 % [facility] Eosinophils (Bld) [#/Vol] 0.07 10*3/uL [facility] Eosinophils/100 WBC (Bld) 2.4 % [facility] Erythrocyte distribution width (RBC) [Entitic vol] 17.2 % High 11.6 - 14.8 % [facility] Hematocrit (Bld) [Volume fraction] 37.1 % Low 41 - 53 % [facility] Hemoglobin (Bld) [Mass/Vol] 11.4 g/dL Low 13.5 - 17.5 g/dL [facility] Immature granulocytes (Bld) [#/Vol] 0.01 10*3/uL [facility] Immature granulocytes/100 WBC (Bld) 0.30 % [facility] Comment on above: The IG parameter is the percentage of metamyelocytes, myelocytes and promyelocytes. An immature granulocyte count (IG) of 1% or more suggests the possibility of infection, an IG count of 3% is very likely related to an infection. Interpretation and review of laboratory results Abnormal [facility] Lymphocytes (Bld) [#/Vol] 0.78 10*3/uL Low [facility] Lymphocytes/100 WBC (Bld) 26.8 % [facility] MCH (RBC) [Entitic mass] 22.3 pg Low 26 - 34 pg [facility] MCHC (RBC) [Mass/Vol] 30.7 g/dL Low 31 - 37 g/dL [facility] MCV (RBC) [Entitic vol] 72.5 fL Low 80 - 100 fL [facility] Monocytes (Bld) [#/Vol] 0.30 10*3/uL [facility] Monocytes/100 WBC (Bld) 10.3 % [facility] Neutrophils (Bld) [#/Vol] 1.74 10*3/uL [facility] Neutrophils/100 WBC (Bld) 59.9 % [facility] Nucleated RBC (Bld) [#/Vol] 0.00 10*3/uL [facility] Nucleated RBC/100 WBC (Bld) [Ratio] 0.0 % [facility] Platelet mean volume (Bld) [Entitic vol] 9.7 fL 9.4 - 12.4 fL [facility] Platelets (Bld) [#/Vol] 111 10*3/uL Low [facility] RBC (Bld) [#/Vol] 5.12 10*6/uL [facility] WBC (Bld) [#/Vol] 2.91 10*3/uL Low [facility] Comprehensive Metabolic Pane [facility] 08-01-2020 Albumin [Mass/Vol] 3.6 g/dL 3.2 - 5.2 g/dL [facility] ALP [Catalytic activity/Vol] 72 U/L 40 - 150 U/L [facility] ALT [Catalytic activity/Vol] 39 U/L 14 - 65 U/L [facility] Anion gap [Moles/Vol] 7 mmol/L Low 10 - 20 mmol/L [facility] AST [Catalytic activity/Vol] 37 U/L 0 - 45 U/L [facility] Bilirubin [Mass/Vol] 1.3 mg/dL 0 - 1.3 mg/dL [facility] Calcium [Mass/Vol] 8.6 mg/dL 8.4 - 10. 2 mg/dL [facility] Chloride [Moles/Vol] 106 mmol/L 98 - 10 8 mmol/L [facility] Creatinine [Mass/Vol] 0.66 mg/dL 0.50 - 1.30 [facility] GFR/1.73 sq M predicted among non-blacks MDRD (S/P/Bld) [Vol rate/Area] The eGFR should be used for monitoring renal function only and not for medication dosing. [facility] GFR/1.73 sq M.predicted CKD-EPI (S/P/Bld) [Vol rate/Area] 110 >=60 mL/min/1.73 m2 [facility] Glucose [Mass/Vol] 98 mg/dL 65 - 99 mg/dL [facility] HCO3 [Moles/Vol] 29 mmol/L 21 - 32 mmol/L [facility] Interpretation and review of laboratory results Abnormal [facility] Potassium [Moles/Vol] 4.3 mmol/L 3.5 - 5.1 mmol/L [facility] Protein [Mass/Vol] 7.9 g/dL 6 - 8 g/dL [facility] Sodium [Moles/Vol] 138 mmol/L 135 - 145 mmol/L [facility] Urea nitrogen [Mass/Vol] 11 mg/dL 8 - 25 mg/dL [facility] Urea nitrogen/Creatinine [Mass ratio] 16.7 mg/mg [facility] D-DIMER, QUANTITATIVEon 07-22 Fibrin D-dimer FEU (PPP) [Mass/Vol] 3.33 High 0.27 - 0.49 mcg/mL FEU [facility] Interpretation and review of laboratory results Abnormal [facility] A D-dimer concentrat ion of <0.5 micrograms per milliliter FEU is considered a low probability for pulmonary embolus (PE) and deep venous thrombosis (DVT). Results of this test should always be interpreted in conjunction with the patient's medical history,clinical presentation, and other findings. Clinical diagnosis should not be based on the results of the D-dimer alone. [facility] ECG 12-LEADon 08-01-2020 Saulo Joseph MD 08/01/2020 9:24 AM EKG 12-lead Date/Time: 08/01/2020 7:45 AM Performed by: Saulo Joseph MD Authorized by: Saulo Joseph MD Interpreted by ED attending physician Comparison: not compared with previous ECG Rhythm: sinus rhythm BPM: 76 Conduction: conduction normal ST Segments: ST segments normal T Waves: T waves normal [place] Interval: 150 QRS Interval: 78 QT Interval: 436 Clinical impression: normal ECG [facility] Otheron 08-01-2020 Extra Tube Hold for add-ons. [facility] Comment on above: Auto resulted. POC Venous Blood Gas Panel-P ulmon 08-01-2020 Base excess Calc (BldV) [Moles/Vol] 3.5 mmol/L High [facility] Breath rate setting Ventilator synchronized intermittent mandatory 0 [facility] CO2 (BldV) [Partial pressure] 53.4 mm[Hg] High [facility] HCO3 (Bld) [Moles/Vol] 30.0 mmol/L High 24 - 28 mmol/L [facility] Hematocrit (BldA) [Volume fraction] 36.2 % Low 41 - 53 % [facility] Hemoglobin (Bld) [Mass/Vol] 11.8 g/dL Low 13.5 - 18 g/dL [facility] Inhaled oxygen concentration 21 % [facility] Interpretation and review of laboratory results Abnormal [facility] Oxygen (BldV) [Partial pressure] 72 mm[Hg] High [facility] Oxygen saturation in Venous blood 94.4 % High 40 - 70 % [facility] pH (BldV) 7.36 [pH] [facility] Specimen source Nom (Unsp spec) Not specified [facility] Tidal volume setting Ventilator 0 [facility] TROPONINon 08-01-2020 Troponin I.cardiac [Mass/Vol] ng/mL <=45 ng/L [facility] Troponin I.cardiac [Mass/Vol] Normal [facility] XR Chest 1 Viewon 08-01-2020 Mild hazy opacity in the bilateral lung bases, left greater than right, may relate to atelectasis or infiltrate, including atypical infection/viral pneumonia. Trace left pleural effusion is suspected. [facility] Workstation ID: [id number] [facility] Interface, Rad In Fu ji [...] pneumonia. Trace left pleural effusion is suspected. [employer] Workstation ID: [id number] [facility] EXAMINATION: XR CHES T PA/AP [...] bilateral lung bases, left greater than right. [facility] APTTon 07-09-2020 aPTT Coag (Bld) [Time] Therapeutic range for APTT's is 68 - 104 seconds [facility] aPTT Coag (Bld) [Time] 138 s Critically high [facility] Interpretation and review of laboratory results Abnormal [facility] aPTT Coag (Bld) [Time] 58 s High [facility] aPTT Coag (Bld) [Time] Therapeutic range for APTT's is 68 - 104 seconds [facility] Interpretation and review of laboratory results Abnormal [facility] Basic Metabolic Panelon 06-22 Anion gap [Moles/Vol] 5 mmol/L Low 10 - 20 mmol/L [facility] Calcium [Mass/Vol] 8.1 mg/dL Low 8.4 - 10. 2 mg/dL [facility] Chloride [Moles/Vol] 104 mmol/L 98 - 10 8 mmol/L [facility] Creatinine [Mass/Vol] 0.82 mg/dL 0.50 - 1.30 [facility] GFR/1.73 sq M predicted among non-blacks MDRD (S/P/Bld) [Vol rate/Area] The eGFR should be used for monitoring renal function only and not for medication dosing. [facility] GFR/1.73 sq M.predicted CKD-EPI (S/P/Bld) [Vol rate/Area] 101 >=60 mL/min/1.73 m2 [facility] Glucose [Mass/Vol] 154 mg/dL High 65 - 99 mg/dL [facility] HCO3 [Moles/Vol] 31 mmol/L 21 - 32 mmol/L [facility] Interpretation and review of laboratory results Abnormal [facility] Potassium [Moles/Vol] 4.4 mmol/L 3.5 - 5.1 mmol/L [facility] Sodium [Moles/Vol] 136 mmol/L 135 - 145 mmol/L [facility] Urea nitrogen [Mass/Vol] 30 mg/dL High 8 - 25 mg/dL [facility] Urea nitrogen/Creatinine [Mass ratio] 36.6 mg/mg High [facility] CBCon 07-09-2020 Erythrocyte distribution width (RBC) [Entitic vol] 16.0 % High 11.6 - 14.8 % [facility] Hematocrit (Bld) [Volume fraction] 30.8 % Low 41 - 53 % [facility] Hemoglobin (Bld) [Mass/Vol] 9.6 g/dL Low 13.5 - 17.5 g/dL [facility] Interpretation and review of laboratory results Abnormal [facility] MCH (RBC) [Entitic mass] 22.3 pg Low 26 - 34 pg [facility] MCHC (RBC) [Mass/Vol] 31.2 g/dL 31 - 37 g/dL [facility] MCV (RBC) [Entitic vol] 71.6 fL Low 80 - 100 fL [facility] Nucleated RBC (Bld) [#/Vol] 0.00 10*3/uL [facility] Nucleated RBC/100 WBC (Bld) [Ratio] 0.0 % [facility] Platelet mean volume (Bld) [Entitic vol] 11.2 fL 9.4 - 12.4 fL [facility] Platelets (Bld) [#/Vol] 107 10*3/uL Low [facility] RBC (Bld) [#/Vol] 4.30 10*6/uL Low [facility] WBC (Bld) [#/Vol] 5.01 10*3/uL [facility] CBC WITH AUTO DIFFERENTIALon 07-09-2020 Basophils (Bld) [#/Vol] 0.00 10*3/uL [facility] Basophils/100 WBC (Bld) 0.0 % [facility] Eosinophils (Bld) [#/Vol] 0.00 10*3/uL [facility] Eosinophils/100 WBC (Bld) 0.0 % [facility] Erythrocyte distribution width (RBC) [Entitic vol] 16.1 % High 11.6 - 14.8 % [facility] Hematocrit (Bld) [Volume fraction] 31.6 % Low 41 - 53 % [facility] Hemoglobin (Bld) [Mass/Vol] 9.9 g/dL Low 13.5 - 17.5 g/dL [facility] Immature granulocytes (Bld) [#/Vol] 0.05 10*3/uL [facility] Immature granulocytes/100 WBC (Bld) 0.80 % [facility] Comment on above: The IG parameter is the percentage of metamyelocytes, myelocytes and promyelocytes. An immature granulocyte count (IG) of 1% or more suggests the possibility of infection, an IG count of 3% is very likely related to an infection. Interpretation and review of laboratory results Abnormal [facility] Lymphocytes (Bld) [#/Vol] 0.44 10*3/uL Low [facility] Lymphocytes/100 WBC (Bld) 7.3 % [facility] MCH (RBC) [Entitic mass] 21.9 pg Low 26 - 34 pg [facility] MCHC (RBC) [Mass/Vol] 31.3 g/dL 31 - 37 g/dL [facility] MCV (RBC) [Entitic vol] 69.8 fL Low 80 - 100 fL [facility] Monocytes (Bld) [#/Vol] 0.25 10*3/uL Low [facility] Monocytes/100 WBC (Bld) 4.1 % [facility] Neutrophils (Bld) [#/Vol] 5.31 10*3/uL [facility] Neutrophils/100 WBC (Bld) 87.8 % [facility] Nucleated RBC (Bld) [#/Vol] 0.00 10*3/uL [facility] Nucleated RBC/100 WBC (Bld) [Ratio] 0.0 % [facility] Platelet mean volume (Bld) [Entitic vol] 9.7 fL 9.4 - 12.4 fL [facility] Platelets (Bld) [#/Vol] 114 10*3/uL Low [facility] RBC (Bld) [#/Vol] 4.53 10*6/uL [facility] WBC (Bld) [#/Vol] 6.05 10*3/uL [facility]-18-2020 Ordered by an unspec ified provider. [facility] LDHon 07-09-2020 Interpretation and review of laboratory results Normal [facility] LDH Lactate to pyruvate reaction [Catalytic activity/Vol] 144 U/L 100 - 250 U/L [facility] Magnesium Levelon 07-09-2020 Interpretation and review of laboratory results Normal [facility] Magnesium [Mass/Vol] 2.4 mg/dL 1.6 - 2 .4 mg/dL [facility] PATHOLOGIST BLOOD SMEAR INTE RPRETATIONon 07-09-2020 Erythrocyte distribution width (RBC) [Entitic vol] 16.4 % High 11.6 - 14.8 % [facility] Hematocrit (Bld) [Volume fraction] 38.2 % Low 41 - 53 % [facility] Hemoglobin (Bld) [Mass/Vol] 11.8 g/dL Low 13.5 - 17.5 g/dL [facility] Interpretation and review of laboratory results Abnormal [facility] MCH (RBC) [Entitic mass] 21.9 pg Low 26 - 34 pg [facility] MCHC (RBC) [Mass/Vol] 30.9 g/dL Low 31 - 37 g/dL [facility] MCV (RBC) [Entitic vol] 70.9 fL Low 80 - 100 fL [facility] Nucleated RBC (Bld) [#/Vol] 0.00 10*3/uL [facility] Nucleated RBC/100 WBC (Bld) [Ratio] 0.0 % [facility] Pathologist review Pathologist comment (Bld) [Interp] Reviewed [facility] Platelet mean volume (Bld) [Entitic vol] 10.2 fL 9.4 - 12.4 fL [facility] Platelets (Bld) [#/Vol] 200 10*3/uL [facility] RBC (Bld) [#/Vol] 5.39 10*6/uL [facility] WBC (Bld) [#/Vol] 8.61 10*3/uL [facility] See Pathology Report #[id number] [facility] POC Glucoseon 07-09-2020 Glucose [Mass/Vol] 136 mg/dL High 65 - 99 mg/dL [facility] Interpretation and review of laboratory results Abnormal [facility] Glucose [Mass/Vol] 128 mg/dL High 65 - 99 mg/dL [facility] Interpretation and review of laboratory results Abnormal [facility] Glucose [Mass/Vol] 233 mg/dL High 65 - 99 mg/dL [facility] Interpretation and review of laboratory results Abnormal [facility] Pathology Consulton 07-09-20 20 Clinical information w8wjzHIoSOCwd6beYBU mbGFuZzE aFtSoCcUlAup6JLQandH5Fmh2ST EwQFzaeV9oLODuSNhmV4weqfCjn GJlXICvZUj0oE9dyKvmvF1yIcMz GoMhCBGsn8BzLHYuxKLtlMB4fPG jwNExOOVhOJYcHEehr4EzbSliNG BhciB9 [facility] Pathology report final diagnosis Narrative p5fzeYTuMVUjlYD9BnStWIDkx8s bo8OitLOoqCDlVBunlXUwllEhwk 82mUE6iE25PS9fQTObBmA4ADRks fD9Iin1QNIjTQPqhHEjV548DKWu VWKjI33zGJUEC138a4dne9hefkY ahJY3dBesUQFpUGEwTYfkKDAgOm PyOcFiRZHNRyBjVQBfy2ZjO8B9J EFeONdlj9atHCTkTZlxo9GzHFvW OKZVVM4THA5ntGG1EEyDCJURD0w XiIN9CqC9aZY5RM39YYOtGSMysM EnVBidO039EXIfjZTvUYIodVFho N8iNAJruJMnrvo5GPSeHIvvu9lq KZAcIRdlb7EjUYxEAPRAFQ8GWJ9 szSG9LXwGLTCOJVzcGYN3KAfdxY Z5r9yguNLhh4c5FMjmETY9kXhih GFpblxiXGYxXGZzMjBccGFyXGxp NzIwXGxpbjcyMFxiMCAxLiAgTWl hTGBeYBR8cy3auKgmrVVaBFG3N3 iqt6VovlJdq1ZnxI8mAYL5uU46y l3cbvNyBM9lMBTxnrngXKVrc9fk M5elNOvuisHaRv1fSP2qP8NgF6m 0uGUdDV0bsLmtSRqxdDzqAO9bj2 9ky5pqrImhZ6o8k0RzyyVoopXtr UYktxvtyJ1exZCaew1cBYMkRRen m8AuUFBpf82iwSFzviDko3C2gOT oABJaUCPzGAfqzWKuE5L7NPGoaT mmHvSwX1IrGKLqaH8osvNbXFhlh sUeVv5vTVBbdwkdhKSxGAinZvsl g0Qwa48xRJCzesF6mRK4HFFrpVH mz9XuPVThvLDGQHXgEJQZw75zAG UBLsTgPVeibqUzkWglQHLBc12eK B46GjXWyZJgWcqkZCopO3NjDIVw YWW0Z2bzs4YvsnBzg3PkyRPzewF mFMYfH9zxbyY5XZWmKZ1kWSgvcz AiWRXgzLQsrTLxs7GvyTTcNW5oT R2rbQqfoTJuDPHCHD8pT6ouKogk y7LwuEv4E1DrEYopx5AzmPmnZMw zIGNvbnNpZGVyZWQgbGVzcyBsaW kpiRf1LIpmr2Y1HOBwHClckV5ka F1jzU8xEFtzY1Eyl5Bmg8Iyd9nl EQ5qF2k0TFFiIRWnopCbFUWxRBV wQq5fSUN3qtIaLQYzHULizBBreM ixtojmN0n1CT4ewTpaUHDpiF5lu YUmNGAgvRvpsAMsxTC7b9O4WE9c AWMcbELviFobuQIvp4HjkUNnGTU zrlvtPSGpHXMjfsn8OKJMQGRGXU hDLS1AGDYJODPGWI5PYSrDHpNkH QU6XEueMEA8IaXDINUSKBpRT7Ra ZJKJGCLHDDTaYA6CYVjDFEXZTVU DM55AKGZAGTWFM8TBR6eVKBtAGE OWHFAEV33IREBNKNXBH4JNXDOXF DPVZJuFILWUFi0DWGIHCGIVDK3D LHmMYgLgBDmNFMBwakOjGwD4KxE 4Tso7DRy1DSTTRIFXZT1JNKSOC9 8VDKNRBWTFA2YDEAGNBaDHOYMCO 61UXKCGMHEPC5PHH4vVCZWALlCG KLJTA48NNLGNZYONT5XKMTLVOEX CKkILMrDGVJ6EJRNCDMGRLA2SZM gKXuJlRTAYD3HTDuBQC8ttASMOG HPTJHRnMH4TdU== [facility] Pathology report gross observation Narrative d8rsyWUgWIFurUO2TsUkTBBoz0w ru0MxsJHkcXCtVIbkdDEsycVziu 00uJI6zH89ED0pENVyLqO0AGEcv tC8Wdf6SCVqVLAxiTWuO539LHZe ZEJdM45gYHLRW075u4xfz8ojqoR ehAU0lXxcIMJfFLLwYLieEUHkGC ZpSeCnDcNvKIe4VNYdkACnf48eV CNpfuuudXMiELltOoqgh0Hqn35z YXIgKFdyaWdodCBzdGFpbikuXHB swdozZOSwD16sFTQlgLYwdSDcNO TuGKR4FG0vdhHdiPOpRFKRz4Rou JFujAPaIQGrNTIKzSLfv37cruDG joFkyTTbJKAhn1OxEAhzRREUMMT 8ZHdoQ5oyFBXgcNBzBQjtHXA7 [facility] APTTon 07-08-2020 aPTT Coag (Bld) [Time] Therapeutic range for APTT's is 68 - 104 seconds [facility] aPTT Coag (Bld) [Time] 59 s High [facility] Interpretation and review of laboratory results Abnormal [facility] aPTT Coag (Bld) [Time] 33 s [facility] aPTT Coag (Bld) [Time] Therapeutic range for APTT's is 68 - 104 seconds [facility] Alcohol, Medicalon 0 Ethanol [Mass/Vol] mg/dL <10.00 mg/dL [facility] Comment on above: Alcohol cutoff: <10. 00 mg/dL = None Detected Interpretation and review of laboratory results Normal [facility] Ammoniaon 07-08-2020 Ammonia (P) [Mass/Vol] 58 ug/dL High [facility] Interpretation and review of laboratory results Abnormal [facility] CBCon 07-08-2020 Erythrocyte distribution width (RBC) [Entitic vol] 16.4 % High 11.6 - 14.8 % [facility] Hematocrit (Bld) [Volume fraction] 38.2 % Low 41 - 53 % [facility] Hemoglobin (Bld) [Mass/Vol] 11.8 g/dL Low 13.5 - 17.5 g/dL [facility] Interpretation and review of laboratory results Abnormal [facility] MCH (RBC) [Entitic mass] 21.9 pg Low 26 - 34 pg [facility] MCHC (RBC) [Mass/Vol] 30.9 g/dL Low 31 - 37 g/dL [facility] MCV (RBC) [Entitic vol] 70.9 fL Low 80 - 100 fL [facility] Nucleated RBC (Bld) [#/Vol] 0.00 10*3/uL [facility] Nucleated RBC/100 WBC (Bld) [Ratio] 0.0 % [facility] Platelet mean volume (Bld) [Entitic vol] 10.2 fL 9.4 - 12.4 fL [facility] Platelets (Bld) [#/Vol] 200 10*3/uL [facility] RBC (Bld) [#/Vol] 5.39 10*6/uL [facility] WBC (Bld) [#/Vol] 8.61 10*3/uL [facility] Erythrocyte distribution width (RBC) [Entitic vol] 16.3 % High 11.6 - 14.8 % [facility] Hematocrit (Bld) [Volume fraction] 35.2 % Low 41 - 53 % [facility] Hemoglobin (Bld) [Mass/Vol] 10.6 g/dL Low 13.5 - 17.5 g/dL [facility] Interpretation and review of laboratory results Abnormal [facility] MCH (RBC) [Entitic mass] 22.1 pg Low 26 - 34 pg [facility] MCHC (RBC) [Mass/Vol] 30.1 g/dL Low 31 - 37 g/dL [facility] MCV (RBC) [Entitic vol] 73.5 fL Low 80 - 100 fL [facility] Nucleated RBC (Bld) [#/Vol] 0.00 10*3/uL [facility] Nucleated RBC/100 WBC (Bld) [Ratio] 0.0 % [facility] Platelet mean volume (Bld) [Entitic vol] 11.2 fL 9.4 - 12.4 fL [facility] Platelets (Bld) [#/Vol] 126 10*3/uL Low [facility] RBC (Bld) [#/Vol] 4.79 10*6/uL [facility] WBC (Bld) [#/Vol] 5.04 10*3/uL [facility] COVID-19, MOLECULARon 2019 SARS-COV-2 (WATERS ID) Not Detected Normal Not Detected [facility] Comment on above: Result Comment: This test [...] at the following links: For Healthcare Providers: https://www.fda.gov/media/095823/download For Patients: https://www.fda.gov/media/423961/download Performed By: #### L [id number] #### LAB [address] [place], [place] [address] Jack Mendoza M.D. [id number] CT PULMONARY ARTERIESon 06-22 Interface, Rad In [...] in caliber. Heart size is mildly enlarged. Pgjr-bq-mzxdbufo coronary artery calcifications. There are a few shotty lymph nodes in the mediastinum and hilar region, not significantly changed from the prior study of October,. The medical field representative lymph node in the right paratracheal [...] no suspicious osseous lesion. There are multilevel raicfda-av-cxje degenerative changes of the thoracic spine. The [...] possibility, less likely. Splenomegaly. Left adrenal myelolipoma. [employer] Workstation ID: [id number] [place] [id number] Limited study to lary luate for pulmonary embolism due to phase of contrast. No focal filling defect up to the lobar level. Small left, trace right-sided pleural effusion. Associated consolidative opacities are likely related to atelectasis. Superimposed pneumonia is also a possibility, less likely. Splenomegaly. Left adrenal myelolipoma. [employer] Workstation ID: [id number] EXAMINATION: CT PULM ONARY ARTERIES HISTORY: ORDERING SYSTEM PROVIDED HISTORY: PE suspected, high pretest prob, TECHNOLOGIST PROVIDED HISTORY: Illness/Other Reason for exam: Acute exacerbation of COPD, respiratory distress. Encounter Type: Initial Additional signs and symptoms: Best images acheivable. ORDERING SYSTEM PROVIDED DIAGNOSIS CODES: J96.00 Acute respiratory failure, unspecified whether with hypoxia or hypercapnia ([facility]) J44.1 COPD exacerbation ([facility]) F12.10 Cannabis abuse COMPARISON: CT [...] in caliber. Heart size is mildly enlarged. Jjfz-dt-jpssnrux coronary artery calcifications. There are a few shotty lymph nodes in the mediastinum and hilar region, not significantly changed from the prior study of October,. The medical field representative lymph node in the right paratracheal [...] no suspicious osseous lesion. There are multilevel leztukk-yc-nxki degenerative changes of the thoracic spine. The [...] nodule is limited due to motion artifact. [facility] CT PULMONARY ARTERIES EXAMINATION: CT PULMONARY ARTERIES HISTORY: ORDERING SYSTEM PROVIDED HISTORY: PE suspected, high pretest prob, TECHNOLOGIST PROVIDED HISTORY: Illness/Other Reason for exam: Acute exacerbation of COPD, respiratory distress. Encounter Type: Initial Additional signs and symptoms: Best images acheivable. ORDERING SYSTEM PROVIDED DIAGNOSIS CODES: J96.00 Acute respiratory failure, unspecified whether with hypoxia or hypercapnia ([facility]) J44.1 COPD exacerbation ([facility]) F12.10 Cannabis abuse COMPARISON: CT [...] in caliber. Heart size is mildly enlarged. Dctr-sp-sakwbcgp coronary artery calcifications. There are a few shotty lymph nodes in the mediastinum and hilar region, not significantly changed from the prior study of October,. The medical field representative lymph node in the right paratracheal [...] no suspicious osseous lesion. There are multilevel wodhvfy-sz-mdlu degenerative changes of the thoracic spine. The [...] possibility, less likely. Splenomegaly. Left adrenal myelolipoma. [employer] Workstation ID: [id number] Dictated by: MONIE ROCHE on TueJul 08, 2020 10:27:46 AM EST Transcribed by: AMNA NEAL on TueJul 08, 2020 10:35:04 AM EST Finalized by: MONIE ROCHE on TueJul 08, 2020 2:23:59 PM EST Normal [facility] Comment on above: Order Comment: Injur y/Trauma or Illness?:Illness/Other How long have you had these symptoms (acute/chronic)?:Acute Reason for exam?:Acute exacerbation of COPD, respiratory distress. Type of Exam?:Initial Additional signs and symptoms?:Best images acheivable. [facility] 07-08-2020 Albumin [Mass/Vol] 2.8 g/dL Low 3.2 - 5.2 g/dL [facility] ALP [Catalytic activity/Vol] 58 U/L 40 - 150 U/L [facility] ALT [Catalytic activity/Vol] 52 U/L 14 - 65 U/L [facility] Anion gap [Moles/Vol] 11 mmol/L 10 - 20 mmol/L [facility] AST [Catalytic activity/Vol] 55 U/L High 0 - 45 U/L [facility] Bilirubin [Mass/Vol] 0.8 mg/dL 0 - 1.3 mg/dL [facility] Calcium [Mass/Vol] 8.1 mg/dL Low 8.4 - 10. 2 mg/dL [facility] Chloride [Moles/Vol] 105 mmol/L 98 - 10 8 mmol/L [facility] Creatinine [Mass/Vol] 0.96 mg/dL 0.50 - 1.30 [facility] GFR/1.73 sq M predicted among non-blacks MDRD (S/P/Bld) [Vol rate/Area] The eGFR should be used for monitoring renal function only and not for medication dosing. [facility] GFR/1.73 sq M.predicted CKD-EPI (S/P/Bld) [Vol rate/Area] 90 >=60 mL/min/1.73 m2 [facility] Glucose [Mass/Vol] 147 mg/dL High 65 - 99 mg/dL [facility] HCO3 [Moles/Vol] 26 mmol/L 21 - 32 mmol/L [facility] Interpretation and review of laboratory results Abnormal [facility] Potassium [Moles/Vol] 5.1 mmol/L 3.5 - 5.1 mmol/L [facility] Protein [Mass/Vol] 7.8 g/dL 6 - 8 g/dL [facility] Sodium [Moles/Vol] 137 mmol/L 135 - 145 mmol/L [facility] Urea nitrogen [Mass/Vol] 20 mg/dL 8 - 25 mg/dL [facility] Urea nitrogen/Creatinine [Mass ratio] 20.8 mg/mg High [facility] Cortisol, Randomon 0 Cortisol [Mass/Vol] 16.9 ug/dL mcg/dL [facility] e[facility] No established refer ence range. [facility] Creatinine, Urine, Randomon 07-08-2020 Creatinine (U) [Mass/Vol] 29.1 mg/dL [facility] No established refer ence range. [facility] D-DIMER, QUANTITATIVEon 06-22 Fibrin D-dimer FEU (PPP) [Mass/Vol] 4.94 High 0.27 - 0.49 mcg/mL FEU [facility] Interpretation and review of laboratory results Abnormal [facility] A D-dimer concentrat ion of <0.5 micrograms per milliliter FEU is considered a low probability for pulmonary embolus (PE) and deep venous thrombosis (DVT). Results of this test should always be interpreted in conjunction with the patient's medical history,clinical presentation, and other findings. Clinical diagnosis should not be based on the results of the D-dimer alone. [facility] DRUGS OF ABUSE SCREEN, URINE on 07-08-2020 Amphetamines Ql (U) None Detected None Detected [facility] Comment on above: Urine Amphetamine Cu toff: < 1000 ng/mL = None Detected Barbiturates Screen Ql (U) None Detected None Detected [facility] Comment on above: Urine Barbiturates C utoff: < 200 ng/mL = None Detected Benzodiazepines Ql (U) None Detected None Detected [facility] Comment on above: Urine Benzodiazepine Cutoff: < 200 ng/mL = None Detected Cannabinoids Screen Ql (U) Positive Abnormal None Detected [facility] Comment on above: Urine Cannabinoids C utoff: < 50 ng/mL = None Detected Cocaine Ql (U) None Detected None Detected [facility] Comment on above: Urine Cocaine Cutoff : < 300 ng/mL = None Detected Interpretation and review of laboratory results Abnormal [facility] Methadone Screen Ql (U) None Detected None Detected [facility] Comment on above: Urine Methadone Cuto ff: < 300 ng/mL = None Detected Opiates Screen Ql (U) None Detected None Detected [facility] Comment on above: Urine Opiates Cutoff : < 300 ng/mL = None Detected Oxycodone Ql (U) None Detected None Detected [facility] Comment on above: Urine Oxycodone Cuto ff: < 100 ng/mL = None Detected Screen results shoul d be used for treatment purposes only. Specimen will be kept for 1 week, if the sample is adequate. Confirmation testing can be initiated by calling the lab within 1 week. [facility] ECG 12-LEADon 07-08-2020 Atrial Rate 163 BPM [facility] Q-T Interval 320 ms [facility] QRS Duration 88 ms [facility] QTC Calculation (Bezet) 505 ms [facility] R [place] 59 degrees [facility] T [place] -16 degrees [facility] Ventricular Rate 150 BPM [facility] th Atrial fibrillation with rapid ventricular response Nonspecific ST abnormality Abnormal QRS-T angle, consider primary T wave abnormality Abnormal ECG ECG Cart Interpretation see physician note for interpretation. Confirmed by Whit Pearson ([id number]) on 07/08/2020 1:51:47 PM [facility] Atrial Rate 76 BPM [facility] P Gladwin 68 degrees [facility] P-R Interval 176 ms [facility] Q-T Interval 414 ms [facility] QRS Duration 86 ms [facility] QTC Calculation (Bezet) 465 ms [facility] R [place] 50 degrees [facility] T [place] 52 degrees [facility] Ventricular Rate 76 BPM [facility] Normal sinus rhythm Normal ECG Confirmed by Memo Bernstein MD ([id number]) on 07/08/2020 1:39:52 PM [facility] ECHOCARDIOGRAM 2D COMPLETEon 07-08-2020 Aortic valve area 3.25703 cm [facility] AV mean gradient 3.91454 mmHg [facility] AV peak gradient 5.00200 mmHg [facility] EF 75.4831 % [facility] Interface, Rad In He artlab [...] Date: 07/08/2020 7:02 AM Patient Status: Inpatient Registered Nurse Obstetrics: Jenise Carcamo RCDS Exam Type: ECHOCARDIOGRAM COMPLETE W CONTRAST Study Info Indications I48.92 - Unspecified atrial flutter I48.91 - Unspecified atrial fibrillation Referring Physician: CRICKET Howard; [id number] BMI: 40.55 kg/m2 Summary 1. Technically fair [...] mmHg MV VTI 21.72 cm MV Decel [place] 560.70 cm/s2 MV PHT 53 ms MV [...] ml/m2 16.00-34.00 RA Dimensions RA Systolic Major [place] Length (4C) 6.58 cm <=5.30 RA Area (4C) 21.26 cm2 <=18.00 RA Area (4C) Index 7.93 cm2/m2 RA ESV (4C MOD) 58.58 ml 18.00-32.00 RA ESV Index (4C MOD) 21.84 ml/m2 <=32.00 Report Signatures Finalized by Liz Raya MD on 07/08/2020 09:27 AM [facility] Patient Info Name: Micheal GILMAN Age: 54 years : 1965 Gender: Male Ht: 183 cm Wt: 136 kg BSA: 2.68 m2 HR: 71 bpm BP: 91 / 57 mmHg Heart Rhythm: Atrial Flutter, Atrial Fibrillation, Sinus Rhythm Technical Quality: Technically difficult, Fair Exam Date: 07/08/2020 7:02 AM Patient Status: Inpatient Registered Nurse Obstetrics: Jenise Carcamo RCDS Exam Type: ECHOCARDIOGRAM COMPLETE W CONTRAST Study Info Indications I48.92 - Unspecified atrial flutter I48.91 - Unspecified atrial fibrillation Referring Physician: CRICKET Howard; [id number] BMI: 40.55 kg/m2 Summary 1. Technically fair [...] mmHg MV VTI 21.72 cm MV Decel [place] 560.70 cm/s2 MV PHT 53 ms MV [...] ml/m2 16.00-34.00 RA Dimensions RA Systolic Major [place] Length (4C) 6.58 cm <=5.30 RA Area (4C) 21.26 cm2 <=18.00 RA Area (4C) Index 7.93 cm2/m2 RA ESV (4C MOD) 58.58 ml 18.00-32.00 RA ESV Index (4C MOD) 21.84 ml/m2 <=32.00 Report Signatures Finalized by Liz Raya MD on 07/08/2020 09:27 AM [facility] ECHOCARDIOGRAM COMPLETE W CO NTRASTon 07-08-2020 ECHOCARDIOGRAM COMPLETE W CONTRAST Patient Info Name: CARMEN GILMAN Age: 54 years : 1965 Gender: Male Ht: 183 cm Wt: 136 kg BSA: 2.68 m2 HR: 71 bpm BP: 91 / 57 mmHg Heart Rhythm: Atrial Flutter, Atrial Fibrillation, Sinus Rhythm Technical Quality: Technically difficult, Fair Exam Date: 07/08/2020 7:02 AM Patient Status: Inpatient Registered Nurse Obstetrics: Jenise Carcamo RCDS Exam Type: ECHOCARDIOGRAM COMPLETE W CONTRAST Study Info Indications I48.92 - Unspecified atrial flutter I48.91 - Unspecified atrial fibrillation Referring Physician: CRICKET Howard; [id number] BMI: 40.55 kg/m2 Summary 1. Technically fair [...] mmHg MV VTI 21.72 cm MV Decel [place] 560.70 cm/s2 MV PHT 53 ms MV [...] ml/m2 16.00-34.00 RA Dimensions RA Systolic Major [place] Length (4C) 6.58 cm <=5.30 RA Area (4C) 21.26 cm2 <=18.00 RA Area (4C) Index 7.93 cm2/m2 RA ESV (4C MOD) 58.58 ml 18.00-32.00 RA ESV Index (4C MOD) 21.84 ml/m2 <=32.00 Report Signatures Finalized by Liz Raya MD on 07/08/2020 09:27 AM [facility] Hemoglobin A1con 07-08-2020 Average glucose Estimated from glycated hemoglobin mass conc (Bld) 111 mg/dL 68 - 114 mg/dL [facility] HbA1c (Bld) [Mass fraction] 5.5 % 4 - 5.6 % [facility] Interpretation and review of laboratory results Normal [facility] Normal: 4.0% - 5.6% Increased risk for diabetes: 5.7% - 6.4% Diabetes: >= 6.5% Pediatrics: No established reference range Estimated average glucose: 68-114 mg/dL [facility] Hepatic Function Panelon Albumin [Mass/Vol] 3.0 g/dL Low 3.2 - 5.2 g/dL [facility] ALP [Catalytic activity/Vol] 85 U/L 40 - 150 U/L [facility] ALT [Catalytic activity/Vol] 50 U/L 14 - 65 U/L [facility] AST [Catalytic activity/Vol] 57 U/L High 0 - 45 U/L [facility] Bilirubin [Mass/Vol] 0.7 mg/dL 0 - 1.3 mg/dL [facility] Bilirubin.conjugated [Mass/Vol] 0.4 mg/dL 0 - 0.4 mg/dL [facility] Interpretation and review of laboratory results Abnormal [facility] Protein [Mass/Vol] 8.4 g/dL High 6 - 8 g/dL [facility] IRON STUDY WITH FERRITINon 1 09-07-2019 Ferritin [Mass/Vol] 360 ng/mL 30 - 400 ng/mL [facility] Interpretation and review of laboratory results Normal [facility] Iron [Mass/Vol] 110 ug/dL [facility] h Iron binding capacity [Mass/Vol] 235 [facility] Iron saturation [Mass fraction] 47 % 20 - 50 % [facility] Lactic Acid, Plasmaon 2019 Interpretation and review of laboratory results Abnormal [facility] Lactate [Moles/Vol] 2.4 mmol/L High 0.6 - 2 mmol/L [facility] Lipid Panelon 07-08-2020 Cholesterol [Mass/Vol] 88 mg/dL Low 100 - 199 mg/dL [facility] Comment on above: National Cholesterol Education Program Guidelines: Cholesterol Desirable: <200 mg/dL Borderline High: 200-239 mg/dL High: greater than or equal to 240 mg/dL Cholesterol in HDL [Mass/Vol] 35 mg/dL Low 40 - 59 [facility] Comment on above: National Cholesterol Education Program Guidelines: HDL Cholesterol Low: <40 mg/dL Near Optimal: 40-59 mg/dL High: greater than or equal to 60 mg/dL Cholesterol in LDL [Mass/Vol] 43 mg/dL 10 - 130 mg/dL [facility] Comment on above: National Cholesterol Education Program Guidelines: LDL Cholesterol Optimal: <100 mg/dL Near Optimal/above Optimal: 100-129 mg/dL Borderline High: 130-159 mg/dL High: 160-189 mg/dL Very High: greater than or equal to 190 mg/dL Cholesterol non HDL [Mass/Vol] 53 mg/dL [facility] Comment on above: National Cholesterol Education Program Guidelines: NON HDL Cholesterol Desirable: <130 mg/dL Borderline High: 130-159 mg/dL High: 160-189 mg/dL Very High: > or = 190 mg/dL Cholesterol.total/Ch olesterol in HDL [Mass ratio] 2.5 {ratio} ratio [facility] Comment on above: Males Cholesterol/HD L Ratio: Average risk: 5.0 1/2 average risk: 3.4 2 x average risk: 9.6 Interpretation and review of laboratory results Abnormal [facility] Triglyceride [Mass/Vol] 48 mg/dL 30 - 150 mg/dL [facility] Comment on above: National Cholesterol Education Program Guidelines: Triglyceride Normal: <150 mg/dL Borderline High: 150-199 mg/dL High: 200-499 mg/dL Very High: greater than or equal to 500 mg/dL Magnesium Levelon 07-08-2020 Interpretation and review of laboratory results Normal [facility] Magnesium [Mass/Vol] 2.0 mg/dL 1.6 - 2 .4 mg/dL [facility] NT Pro BNPon 07-08-2020 Interpretation and review of laboratory results Abnormal [facility] Natriuretic peptide.B prohormone N-Terminal [Mass/Vol] 1022 pg/mL High 0 - 300 pg/mL [facility] Pride Study Cut-offs Rule In: < /= 50 Years >450 pg/mL 51 Years - 75 Years >900 pg/mL 76 Years - 99 Years >1800 pg/mL Rule Out: All patients <300 pg/mL [facility] Otheron 07-08-2020 No established refer ence range. [facility] Interpretation and review of laboratory results Normal [facility] POC ARTERIAL BLOOD GAS PANEL -PULMicheal - Shannon 07-08-2020 Alveolar-arterial oxygen Partial pressure difference 121.7 mm Hg [facility] Base excess Calc (Bld) [Moles/Vol] 1.8 mmol/L [facility] Breath rate setting Ventilator synchronized intermittent mandatory 0 [facility] CO2 (Bld) [Partial pressure] 54.8 mm[Hg] High [facility] HCO3 (Bld) [Moles/Vol] 28.6 mmol/L High 22 - 26 mmol/L [facility] Hematocrit (BldA) [Volume fraction] 32.0 % Low 41 - 53 % [facility] Hemoglobin (Bld) [Mass/Vol] 10.4 g/dL Low 13.5 - 18 g/dL [facility] Inhaled oxygen concentration 40 % [facility] Interpretation and review of laboratory results Abnormal [facility] Oxygen (Bld) [Partial pressure] 88 mm[Hg] [facility] PEEP Respiratory system 5 [facility] pH (Bld) 7.33 [pH] Low [facility] SaO2% (BldA) [Mass fraction] 96.6 % 92 - 99 % [facility] Specimen source Nom (Unsp spec) Radial, right [facility] Tidal volume setting Ventilator 600 [facility] POC Glucoseon 07-08-2020 Glucose [Mass/Vol] 187 mg/dL High 65 - 99 mg/dL [facility] Interpretation and review of laboratory results Abnormal [facility] Glucose [Mass/Vol] 133 mg/dL High 65 - 99 mg/dL [facility] Interpretation and review of laboratory results Abnormal [facility] Glucose [Mass/Vol] 180 mg/dL High 65 - 99 mg/dL [facility] Interpretation and review of laboratory results Abnormal [facility] Glucose [Mass/Vol] 147 mg/dL High 65 - 99 mg/dL [facility] Interpretation and review of laboratory results Abnormal [facility] PT/INRon 07-08-2020 INR Coag (PPP) [Relative time] 1.1 {INR} [facility] PT Coag (PPP) [Time] 14.1 s [facility] During the induction phase of oral anticoagulation, the INR may not reflect the anticoagulation status of the patient. Therapeutic ranges for INR's are: Most clinical situations: INR 2.0-3.0 Mechanical Prosthetic Valve: INR 2.5-3.5 Critical: INR >5.0 [facility] Protein, Urine, Randomon Protein (U) [Mass/Vol] 629.9 mg/dL [facility] Reflex Lactic Acid, Plasmaon 07-08-2020 Interpretation and review of laboratory results Normal [facility] Lactate [Moles/Vol] 1.6 mmol/L 0.6 - 2 mmol/L [facility] TROPONINon 07-08-2020 Interpretation and review of laboratory results Abnormal [facility] Troponin I.cardiac [Mass/Vol] ng/mL Critically high < -/+ 8 change ng/L [facility] Troponin I.cardiac [Mass/Vol] 152 ng/L Critically high <=45 [facility] Troponin I.cardiac [Mass/Vol] Probable acute injury or myocardial infarction. [facility] Interpretation and review of laboratory results Abnormal [facility] Troponin I.cardiac [Mass/Vol] 146 ng/L Critically high <=45 [facility] Troponin I.cardiac [Mass/Vol] Probable acute injury or myocardial infarction. [facility] Troponin I.cardiac [Mass/Vol] ng/mL Critically high < -/+ 8 change ng/L [facility] TSH with Reflex Free T4on Interpretation and review of laboratory results Normal [facility] TSH Qn 0.62 m[IU]/L [facility] URINALYSISon 07-08-2020 Bacteria Auto Ql (U) Rare Abnormal None Se en /hpf [facility] Bilirubin Ql (U) Negative Negative [facility] th Clarity Refractometry automated (U) Clear Clear [facility] Color (U) Yellow Colorless, Yellow [facility] Epithelial cells.squamous Auto (Urine sed) [#/Area] <1 [facility] Glucose Auto test strip (U) [Mass/Vol] 50 Abnormal Negative mg/dL [facility] Hemoglobin Auto test strip Ql (U) Moderate Abnormal Negative [facility] Hyaline casts Auto (Urine sed) [#/Area] 0-2 0 - 2 /lpf [facility] Interpretation and review of laboratory results Abnormal [facility] Ketones (U) [Mass/Vol] Negative Negative mg/dL [facility] Leukocyte esterase Auto test strip Ql (U) Negative Negative [facility] Mucus Auto (Urine sed) [#/Area] Rare None Seen, Rare /lpf [facility] Nitrite Auto test strip Ql (U) Negative Negative [facility] pH (U) 6.5 [pH] [facility] Protein (U) [Mass/Vol] mg/dL Abnormal Negative mg/dL [facility] RBC Auto (Urine sed) [#/Area] 84 High [facility] Specific gravity (U) [Rel density] 1.016 [facility] Transitional cells Computer assisted (U) [#/Area] <1 [facility] Urobilinogen (U) [Mass/Vol] <2.0 <2.0 mg/dL [facility] WBC Auto (Urine sed) [#/Area] 7 High [facility] Microscopic examinat ion is performed on all urinalysis samples and only positive findings are reported. The test for blood on the chemical analytic portion of urinalysis may also be positive due to hemoglobinuria and myoglobinuria and if red blood cells are present they are quantified by microscopic examination. [facility] Bacteria Auto Ql (U) None Seen None Se en /hpf [facility] Bilirubin Ql (U) Negative Negative [facility] Clarity Refractometry automated (U) Clear Clear [facility] Color (U) Yellow Colorless, Yellow [facility] Epithelial cells.squamous Auto (Urine sed) [#/Area] <1 [facility] Glucose Auto test strip (U) [Mass/Vol] Negative Negative mg/dL [facility] Hemoglobin Auto test strip Ql (U) Moderate Abnormal Negative [facility] Interpretation and review of laboratory results Abnormal [facility] Ketones (U) [Mass/Vol] Negative Negative mg/dL [facility] Leukocyte esterase Auto test strip Ql (U) Negative Negative [facility] Mucus Auto (Urine sed) [#/Area] Rare None Seen, Rare /lpf [facility] Nitrite Auto test strip Ql (U) Negative Negative [facility] pH (U) 5.0 [pH] [facility] Protein (U) [Mass/Vol] Negative Negative mg/dL [facility] RBC Auto (Urine sed) [#/Area] 34 High [facility] Specific gravity (U) [Rel density] 1.035 High [facility] Urobilinogen (U) [Mass/Vol] <2.0 <2.0 mg/dL [facility] WBC Auto (Urine sed) [#/Area] 5 [facility] Microscopic examinat ion is performed on all urinalysis samples and only positive findings are reported. The test for blood on the chemical analytic portion of urinalysis may also be positive due to hemoglobinuria and myoglobinuria and if red blood cells are present they are quantified by microscopic examination. [facility] Urine Electrolyteson 020 Chloride (U) [Moles/Vol] 117 mmol/L [facility] Potassium (U) [Moles/Vol] 35.0 mmol/L [facility] Sodium (U) [Moles/Vol] 126 mmol/L [facility] VITAMIN D, TOTAL, 25-OHon 25-Hydroxyvitamin D2+25-Hydroxyvitamin D3 [Mass/Vol] 13 ng/mL Low 30 - 100 ng/mL [facility] Comment on above: Vitamin D [...] Interpretation and review of laboratory results Abnormal [facility] Assay performed mallika Lira's chemiluminescence methodology. [facility] XR ABDOMEN /KUB/FLAT PLATE/1 VIEWon [...] TueJul 08, 2020 2:22:34 AM EST Normal [facility] Comment on above: Order Comment: RN to call when ready. Injury/Trauma or Illness?:Illness/Other How long have you had these symptoms (acute/chronic)?:Acute Reason for exam?:OG tube placement History of cancer?:NA Surgeries, chemotherapy, or radiation?:NA Type of Exam?:Initial Additional signs and symptoms?:n XR ABDOMEN 1 VIEWon 07-08-20 20 Enteric tube in adeq uate position. Workstation ID: [id number] [facility] Interface, Rad In Fu ji [...] tube in adequate position. Workstation ID: [id number] [facility] EXAMINATION: XR ABDO MEN /KUB/FLAT [...] Osseous structures grossly unremarkable. No pathologic calcification. [facility] XR CHEST PA/APon 07-08-2020 XR [...] 26.9 mmol/L High 22 - 26 mmol/L [facility] Oxygen (Bld) [Partial pressure] 531 mm[Hg] High [facility] CBC WITH AUTO DIFFERENTIALon 07-07-2020 Basophils (Bld) [#/Vol] 0.05 10*3/uL [facility] Basophils/100 WBC (Bld) 0.4 % [facility] Eosinophils (Bld) [#/Vol] 0.39 10*3/uL [facility] Eosinophils/100 WBC (Bld) 3.3 % [facility] Erythrocyte distribution width (RBC) [Entitic vol] 17.2 % High 11.6 - 14.8 % [facility] Hematocrit (Bld) [Volume fraction] 39.7 % Low 41 - 53 % [facility] Hemoglobin (Bld) [Mass/Vol] 12.0 g/dL Low 13.5 - 17.5 g/dL [facility] Immature granulocytes (Bld) [#/Vol] 0.14 10*3/uL [facility] Immature granulocytes/100 WBC (Bld) 1.20 % [facility] Comment on above: The IG parameter is the percentage of metamyelocytes, myelocytes and promyelocytes. An immature granulocyte count (IG) of 1% or more suggests the possibility of infection, an IG count of 3% is very likely related to an infection. Interpretation and review of laboratory results Abnormal [facility] Lymphocytes (Bld) [#/Vol] 4.22 10*3/uL High [facility] Lymphocytes/100 WBC (Bld) 36.1 % [facility] MCH (RBC) [Entitic mass] 22.1 pg Low 26 - 34 pg [facility] MCHC (RBC) [Mass/Vol] 30.2 g/dL Low 31 - 37 g/dL [facility] MCV (RBC) [Entitic vol] 73.1 fL Low 80 - 100 fL [facility] Monocytes (Bld) [#/Vol] 0.88 10*3/uL [facility] Monocytes/100 WBC (Bld) 7.5 % [facility] Neutrophils (Bld) [#/Vol] 6.01 10*3/uL [facility] Neutrophils/100 WBC (Bld) 51.5 % [facility] Nucleated RBC (Bld) [#/Vol] 0.03 10*3/uL High [facility] Nucleated RBC/100 WBC (Bld) [Ratio] 0.3 % [facility] Platelet mean volume (Bld) [Entitic vol] 10.0 fL 9.4 - 12.4 fL [facility] Platelets (Bld) [#/Vol] 237 10*3/uL [facility] RBC (Bld) [#/Vol] 5.43 10*6/uL [facility] WBC (Bld) [#/Vol] 11.69 10*3/uL [facility] COVID-19, [facility]2019 Interpretation and review of laboratory results Normal [facility] SARS-CoV-2 Not Detected Not Detected [facility] Comment on above: This test was perfor med under the FDA's Emergency Use Authorization (EUA). Testing was performed using the [employer] ID NOW COVID-19 assay on the ID NOW platform. This test has not been approved for use in asymptomatic patients and its performance in this patient population has not been evaluated. Negative results do not rule out the presence of SARS-CoV-2/COVID-19. Fact sheets for the EUA can be found at the following links: For Healthcare Providers: https://www.fda.gov/media/130882/download For Patients: https://www.fda.gov/media/043953/download Chem 07-07-2020 Anion gap [Moles/Vol] 15 mmol/L 10 - 20 mmol/L [facility] Chloride [Moles/Vol] 104 mmol/L 98 - 11 1 mmol/L [facility] Creatinine [Mass/Vol] 1.05 mg/dL 1.00 - 1.70 [facility] GFR/1.73 sq M predicted among non-blacks MDRD (S/P/Bld) [Vol rate/Area] The eGFR should be used for monitoring renal function only and not for medication dosing. [facility] GFR/1.73 sq M.predicted CKD-EPI (S/P/Bld) [Vol rate/Area] 47 Low >=60 mL/min/1.73 m2 [facility] GFR/1.73 sq M.predicted CKD-EPI (S/P/Bld) [Vol rate/Area] 41 Low >=60 mL/min/1.73 m2 [facility] Glucose [Mass/Vol] 188 mg/dL High 65 - 99 mg/dL [facility] HCO3 [Moles/Vol] 21 mmol/L 21 - 32 mmol/L [facility] Interpretation and review of laboratory results Abnormal [facility] Potassium [Moles/Vol] 4.2 mmol/L 3.5 - 5.1 mmol/L [facility] Sodium [Moles/Vol] 136 mmol/L 135 - 145 mmol/L [facility] Urea nitrogen [Mass/Vol] 16 mg/dL 8 - 25 mg/dL [facility] Urea nitrogen/Creatinine [Mass ratio] 15.2 mg/mg [facility] Hematologyon 07-07-2020 Hemoglobin (Bld) [Mass/Vol] 12.7 g/dL Low 13.5 - 18 g/dL [facility] pH (Bld) 7.15 [pH] Critically low [facility] INTUBATIONon 07-07-2020 Kinsye Ignacio MD 07/07/2020 11:37 PM Intubation Date/Time: [...] to verify the correct patient, procedure, equipment, support services coordinator and site/side marked as required. Timeout performed [...] the procedure well with no immediate complications [facility] Imm/Pathon 07-07-2020 Specimen source Nom (Unsp spec) Brachial, left [facility] Metabolic Panelon 07-07-2020 CO2 (Bld) [Partial pressure] 77.0 mm[Hg] High [facility] NT Pro BNPon 07-07-2020 Interpretation and review of laboratory results Normal [facility] Natriuretic peptide.B prohormone N-Terminal [Mass/Vol] 266 pg/mL 0 - 300 pg/mL [facility] Pride Study Cut-offs Rule In: < /= 50 Years >450 pg/mL 51 Years - 75 Years >900 pg/mL 76 Years - 99 Years >1800 pg/mL Rule Out: All patients <300 pg/mL [facility] Otheron 07-07-2020 Alveolar-arterial oxygen Partial pressure difference 66.6 mm Hg [facility] Base excess Calc (Bld) [Moles/Vol] -3.5 mmol/L Low [facility] Breath rate setting Ventilator synchronized intermittent mandatory 0 [facility] Hematocrit (BldA) [Volume fraction] 38.8 % Low 41 - 53 % [facility] Inhaled oxygen concentration 100 % [facility] Interpretation and review of laboratory results Abnormal [facility] PEEP Respiratory system 5 [facility] Result Notification dr ignacio [facility] ealt Tidal volume setting Ventilator 500 [facility] Critical result acte d upon time of test. Test performed at bedside. [facility] TROPONINon 07-07-2020 Troponin I.cardiac [Mass/Vol] Normal [facility] Troponin I.cardiac [Mass/Vol] ng/mL <=45 ng/L [facility] XR Chest 1 Viewon 07-07-2020 [...] cm above the virgie. Workstation ID: [id number] [facility] 1. Nonacute portable chest. 2. Tip of the ET tube is 5.5 cm above the virgie. Workstation ID: [id number] [facility] EXAMINATION: XR CHES T PA/AP [...] tube is 5.5 cm above the virgie. [facility] XR FOOT RIGHT 3+ VIEWS (JEREMIAS DARSajan)on 04-22-2020 1. Fracture not iden tified. 2. Degenerative changes. 3. Soft tissue swelling. Workstation ID: [id number] [facility] EXAMINATION: XR FOOT RIGHT 3+ [...] swelling noted in the foot and ankle. [facility] Interface, Rad In Fu ji [...] changes. 3. Soft tissue swelling. Workstation ID: [id number] [facility] POC Glucoseon 01-08-2020 Glucose [Mass/Vol] 127 mg/dL High 65 - 99 mg/dL [facility] Interpretation and review of laboratory results Abnormal [facility] XR Knee Right 2 Views (Stand no)on 01-08-2020 Postsurgical changes without acute osseous abnormality. Workstation ID: [id number] [facility] EXAMINATION: XR KNEE RIGHT 2 [...] displaced fracture identified. Surgical tammy are noted. [facility] Interface, Rad In Fu ji [...] without acute osseous abnormality. Workstation ID: [id number] [facility] CT Knee Right Without Contra ston 01-03-2020 Right knee tricompar tmental osteoarthritis with moderate joint effusion, moderate Morgan's cyst and synovitis. No significant osteoarthritic changes of the right hip and ankle. ST/richard Workstation ID: [id number] [facility] EXAMINATION: CT KNEE RIGHT WITHOUT [...] lateral knee compartment joint space narrowing with [id number] appearance, subchondral sclerosis, subchondral cystic changes and [...] edema at the lower leg and ankle. [facility], Rad In Fu ji Speechq - 01/03/2020 [...] lateral knee compartment joint space narrowing with [id number] appearance, subchondral sclerosis, subchondral cystic changes and [...] changes of the right hip and ankle. Cortilia/Bocom Workstation ID: [id number] [facility] Cult, Bloodon 11-12-2019 Cult, Blood Specimen Description .BLOOD Special Requests R AC 2ML Culture NO GROWTH 6 DAYS Report Status FINAL 11/12/2019 Normal [facility] Comment on above: Performed By: #### C JERAMIE SANTANA #### [facility] [address] [place] [address] Senior Investment Manager: Todd Foster MD Cult,Bloodon 11-12-2019 Cult,Blood Specimen Description .BLOOD Special Requests 10ML R AC Culture NO GROWTH 6 DAYS Report Status FINAL 11/12/2019 Normal [facility] Comment on above: Performed By: #### C ESTHER, CP #### [facility] [address] [place] [address] Senior Investment Manager: Todd Foster MD Cult,Respiratoryon 0 Cult,Respiratory Specimen [...] REPORTED Trimethoprim/Sulfa <=10 SUSCEPTIBLE Vancomycin [address] [facility] Comment on above: Performed By: #### C ESTHER, CP #### [facility] [address] [place] [address] Senior Investment Manager: Todd Foster MD Brain Natri. Peptideon 11-05 Natriuretic peptide B (Bld) [Mass/Vol] Pro-BNP Reference Range: Normal [facility] Comment on above: Result Comment: Rule Out: <300 Combs Zone: Age <50 300-450 Age 50-75 300-900 Age >75 300-1800 Usually represents mild to moderate HF but other cardiopulmonary causes cannot be ruled out. Rule In: Age <50 >450 Age 50-75 >900 Age >75 >1800 Performed By: #### C DP, CP #### [facility] [address] [place], [place] [id number] Senior Investment Manager: Todd Foster MD Natriuretic peptide B (Bld) [Mass/Vol] 143 pg/mL Normal <300 [facility] Comment on above: Result Comment: Pro- BNP results cannot be compared to BNP results. Performed By: #### C DP, CP #### [facility] [address] [place] [address] Senior Investment Manager: Todd Foster MD Brain Natriuretic Peptideon 11-06-2019 Natriuretic peptide B (Bld) [Mass/Vol] Pro-BNP Reference Range: [place], [place] Comment on above: Rule Out: <300 Combs Zone: Age <50 300-450 Age 50-75 300-900 Age >75 300-1800 Usually represents mild to moderate HF but other cardiopulmonary causes cannot be ruled out. Rule In: Age <50 >450 Age 50-75 >900 Age >75 >1800 Natriuretic peptide B (Bld) [Mass/Vol] 143 pg/mL <300 [place] Comment on above: Pro-BNP results [place] ot be compared to BNP results. CBC Auto Differentialon 10-20 Basophils (Bld) [#/Vol] 0.00 10*3/uL [place] Basophils/100 WBC (Bld) 0 % 0 - 2 % [place] Differential Type NOT REPORTED [place] Eosinophils (Bld) [#/Vol] 0.00 10*3/uL [place] Eosinophils/100 WBC (Bld) 1 % 0 - 5 % [place] Erythrocyte distribution width (RBC) [Ratio] 16.5 % High 12.1 - 15.2 % [place] Hematocrit (Bld) [Volume fraction] 38.4 % Low 41 - 53 % [place] Hemoglobin (Bld) [Mass/Vol] 11.9 g/dL Low 13.5 - 17.5 g/dL [place] Interpretation and review of laboratory results Abnormal [place] Lymphocytes (Bld) [#/Vol] 1.00 10*3/uL [place] Lymphocytes/100 WBC (Bld) 22 % 13 - 44 % [place] MCH (RBC) [Entitic mass] 22.6 pg Low 26 - 34 pg [place] MCHC (RBC) [Mass/Vol] 31.1 g/dL 31 - 37 g/dL [place] MCV (RBC) [Entitic vol] 72.8 fL Low 80 - 100 fL [place] Monocytes (Bld) [#/Vol] 0.50 10*3/uL [place] Monocytes/100 WBC (Bld) 11 % High 5 - 9 % [place] Platelet mean volume (Bld) [Entitic vol] NOT REPORTED 6 - 12 fL [place] Platelets (Bld) [#/Vol] NOT REPORTED [place] Platelets (Bld) [#/Vol] 134 10*3/uL Low [place] RBC (Bld) [#/Vol] 5.28 10*6/uL 4.5 - 5.9 m/uL [place] RBC morphology finding Nom (Bld) NOT REPORTED [place] Segmented neutrophils/100 WBC (Bld) 66 % 39 - 75 % [place] Segs Absolute 3.00 [place] WBC (Bld) [#/Vol] 4.4 10*3/uL [place] WBC (Bld) [#/Vol] NOT REPORTED per 100 WBC [place] WBC Morphology NOT REPORTED [place] CBC with Diffon 11-06-2019 Abs. Basophil 0.00 k/uL Normal 0.0-0.2 [facility] Comment on above: Performed By: #### C ESTHER CP #### [facility] [address] [place] [address] Senior Investment Manager: Todd Foster MD Abs.Neutrophil (Seg) 3.00 k/uL Normal 2.1-6.5 [facility] Comment on above: Performed By: #### C ESTHER, CP #### [facility] [address] [place], [place] [id number] Senior Investment Manager: Todd Foster MD Basophils/100 WBC (Bld) 0 % Normal 0-2 [facility] Comment on above: Performed By: #### C DP, CP #### [facility] [address] [place], [place] [id number] Senior Investment Manager: oTdd Foster MD Eosinophils (Bld) [#/Vol] 0.00 10*3/uL Normal 0.0-0.4 [facility] Comment on above: Performed By: #### C DP, CP #### [facility] [address] [place] [address] Senior Investment Manager: Todd Foster MD Eosinophils/100 WBC (Bld) 1 % Normal 0-5 [facility] Comment on above: Performed By: #### C DP, CP #### [facility] [address] [place] [address] Senior Investment Manager: Todd Foster MD Lymphocytes (Bld) [#/Vol] 1.00 10*3/uL Normal 1.0-4.8 [facility] Comment on above: Performed By: #### C DP, CP #### [facility] [address] [place] [address] Senior Investment Manager: Todd Foster MD Lymphocytes/100 WBC (Bld) 22 % Normal 13-44 [facility] Comment on above: Performed By: #### C DP, CP #### [facility] [address] [place] [address] Senior Investment Manager: Todd Foster MD Monocytes (Bld) [#/Vol] 0.50 10*3/uL Normal 0.0-1.0 [facility] Comment on above: Performed By: #### C DP, CP #### [facility] [address] [place] [address] Senior Investment Manager: Todd Foster MD Monocytes/100 WBC (Bld) 11 % High 5-9 [facility] Comment on above: Performed By: #### C DP, CP #### [facility] [facility] [address] [place] [address] Senior Investment Manager: Todd Foster MD Neutrophil (Seg) 66 % Normal 39-75 [facility] Comment on above: Performed By: #### C DP, CP #### [facility] [address] [place] [address] Senior Investment Manager: Todd Foster MD Erythrocyte distribution width (RBC) [Ratio] 16.5 % High 12.1-15.2 [facility] Comment on above: Performed By: #### C DP, CP #### [facility] [address] [place] [address] Senior Investment Manager: Todd Foster MD Hematocrit (Bld) [Volume fraction] 38.4 % Low 41-53 [facility] Comment on above: Performed By: #### C DP, CP #### [facility] [address] [place] [address] Senior Investment Manager: Todd Foster MD Hemoglobin (Bld) [Mass/Vol] 11.9 g/dL Low 13.5-17.5 [facility] Comment on above: Performed By: #### C DP, CP #### [facility] [address] [place] [address] Senior Investment Manager: Todd Foster MD MCH (RBC) [Entitic mass] 22.6 pg Low 26-34 [facility] Comment on above: Performed By: #### C DP, CP #### [facility] [address] [place] [address] Senior Investment Manager: Todd Foster MD MCHC (RBC) [Mass/Vol] 31.1 g/dL Normal 31-37 [facility] Comment on above: Performed By: #### C DP, CP #### [facility] [address] [place] [address] Senior Investment Manager: Todd Foster MD MCV (RBC) [Entitic vol] 72.8 fL Low 80-100 [facility] Comment on above: Performed By: #### C DP, CP #### [facility] [address] [place] [address] Senior Investment Manager: Todd Foster MD Platelets (Bld) [#/Vol] 134 10*3/uL Low 140-450 [facility] Comment on above: Performed By: #### C DP, CP #### [facility] [address] [place] [address] Senior Investment Manager: Todd Foster MD RBC (Bld) [#/Vol] 5.28 10*6/uL Normal 4.5-5.9 [facility] Comment on above: Performed By: #### C DP, CP #### [facility] [address] [place] [address] Senior Investment Manager: Todd Foster MD WBC (Bld) [#/Vol] 4.4 10*3/uL Normal 3.5-11.0 [facility] Comment on above: Performed By: #### C DP, CP #### [facility] [address] [place] [address] Senior Investment Manager: Todd Foster MD Abs.Imm.Granulocyte NOT REPORTED Normal 0.00-0.30 [facility] Comment on above: Performed By: #### C DP, CP #### [facility] [address] [place] [address] Senior Investment Manager: Todd Foster MD Auto Diff Performed NOT REPORTED Normal [facility] Comment on above: Performed By: #### C DP, CP #### [facility] [address] [place] [address] Senior Investment Manager: Todd Foster MD Immature granulocytes (Bld) [#/Vol] NOT REPORTED Normal 0 [facility] Comment on above: Performed By: #### C DP, CP #### [facility] [address] [place] [phone] Senior Investment Manager: Todd Foster MD NRBC Automated NOT REPORTED Normal [facility] Comment on above: Performed By: #### C DP, CP #### [facility] [address] [place] [phone] Senior Investment Manager: Todd Foster MD Platelet mean volume (Bld) [Entitic vol] NOT REPORTED Normal 6.0-12.0 [facility] Comment on above: Performed By: #### C DP, CP #### [facility] [address] [place] [address] [phone] Senior Investment Manager: Todd Foster MD Platelets (Bld) [#/Vol] NOT REPORTED Normal [facility] Comment on above: Performed By: #### C DP, CP #### [facility] [address] [place] [address] Senior Investment Manager: Todd Foster MD RBC morphology finding Nom (Bld) NOT REPORTED Normal [facility] Comment on above: Performed By: #### C DP, CP #### [facility] [address] [place] [address] Senior Investment Manager: Todd Foster MD WBC Morphology NOT REPORTED Normal [facility] Comment on above: Performed By: #### C DP, CP #### [facility] [address] [place], [place] [phone] Senior Investment Manager: Todd Foster MD CT CHEST WO CONTRASTon [...] Antony Molina MD 11/06/19 Final result Normal [facility] Jhony, Mhpn Incoming R adiant Results From [employer] - 11/06/2019 5:40 AM EDT EXAMINATION: CT [...] findings are seen. 2. Mild bilateral gynecomastia. [place] 1. Findings consiste nt with multifocal small airway infection, most prominent in the left lower lobe. No other acute cardiopulmonary findings are seen. 2. Mild bilateral gynecomastia. [place] EXAMINATION: CT CHES T WO CONTRAST [...] noted. No acute osseous abnormality is seen. [place] Comp Metabolic Profon 2019 (cont.) Normal [facility] Comment on above: Result Comment: Aver age GFR for 50-59 years old: 93 mL/min/1.73sq m Chronic Kidney Disease: <60 mL/min/1.73sq m Kidney failure: <15 mL/min/1.73sq m eGFR calculated using average adult body mass. Additional eGFR calculator available at: http://www.[employer]Oyster.com/multiple_crcl_2011.htm Performed By: #### C DP, CP #### [facility] [address] [place], [place] [phone] Senior Investment Manager: Todd Foster MD Albumin [Mass/Vol] 4.3 g/dL Normal 3.5-5.2 [facility] Comment on above: Performed By: #### C DP, CP #### [facility] [address] [place], [place] [phone] Senior Investment Manager: Todd Foster MD Alkaline Phos 78 U/L Normal 40-129 [facility] Comment on above: Performed By: #### C DP, CP #### [facility] [address] [place], [place] [phone] Senior Investment Manager: Todd Foster MD ALT [Catalytic activity/Vol] 32 U/L Normal 5-41 [facility] Comment on above: Performed By: #### C DP, CP #### [facility] [address] [place], [place] [phone] Senior Investment Manager: Todd Foster MD Anion gap [Moles/Vol] 12 mmol/L Normal 9-17 [facility] Comment on above: Performed By: #### C DP, CP #### [facility] [address] [place], [place] [phone] Senior Investment Manager: Todd Foster MD AST [Catalytic activity/Vol] 40 U/L High <40 [facility] Comment on above: Performed By: #### C DP, CP #### [facility] [address] [place], [place] [phone] Senior Investment Manager: Todd Foster MD Bilirubin Ql (U) 0.78 mg/dL Normal 0.30-1.20 [facility] Comment on above: Performed By: #### C DP, CP #### [facility] [address] [place], [place] [phone] Senior Investment Manager: Todd Foster MD BUN/CRE Ratio 22 High 9-20 [facility] Comment on above: Performed By: #### C DP, CP #### [facility] [address] [place] [address] Senior Investment Manager: Todd Foster MD Calcium [Mass/Vol] 9.5 mg/dL Normal 8.6-10.4 [facility] Comment on above: Performed By: #### C DP, CP #### [facility] [address] [place] [address] Senior Investment Manager: Todd Foster MD Chloride [Moles/Vol] 96 mmol/L Low 98-107 [facility] Comment on above: Performed By: #### C DP, CP #### [facility] [address] [place] [address] Senior Investment Manager: Todd Foster MD CO2 [Moles/Vol] 26 mmol/L Normal 20-31 [facility] Comment on above: Performed By: #### C DP, CP #### [facility] [address] [place] [address] Senior Investment Manager: Todd Foster MD Creatinine [Mass/Vol] 0.69 mg/dL Low 0.70-1.20 [facility] Comment on above: Performed By: #### C DP, CP #### [facility] [address] [place] [address] Senior Investment Manager: Todd Foster MD GFR, Amer >60 Normal >60 [facility] Comment on above: Performed By: #### C DP, CP #### [facility] [address] [place], [place] [phone] Senior Investment Manager: Todd Foster MD GFR,non Amer >60 Normal >60 [facility] Comment on above: Performed By: #### C DP, CP #### [facility] [address] [place] [address] Senior Investment Manager: Todd Foster MD Glucose [Mass/Vol] 113 mg/dL High 70-99 [facility] Comment on above: Performed By: #### C DP, CP #### [facility] [address] [place], [place] [phone] Senior Investment Manager: Todd Foster MD Potassium [Moles/Vol] 4.3 mmol/L Normal 3.7-5.3 [facility] Comment on above: Performed By: #### C DP, CP #### [facility] [address] [place], [place] [phone] Senior Investment Manager: Todd Foster MD Protein [Mass/Vol] 9.3 g/dL High 6.4-8.3 [facility] Comment on above: Performed By: #### C DP, CP #### [facility] [address] [place] [address] Senior Investment Manager: Todd Foster MD Sodium [Moles/Vol] 134 mmol/L Low 135-144 [facility] Comment on above: Performed By: #### C DP, CP #### [facility] [address] [place] [address] Senior Investment Manager: Todd Foster MD Urea nitrogen [Mass/Vol] 15 mg/dL Normal 6-20 [facility] Comment on above: Performed By: #### C DP, CP #### [facility] [address] [place] [address] Senior Investment Manager: Todd Foster MD Albumin/Globulin [Mass ratio] NOT REPORTED Normal 1.0-2.5 [facility] Comment on above: Performed By: #### C DP, CP #### [facility] [address] [place] [address] Senior Investment Manager: Todd Foster MD Staging: NOT REPORTED Normal [facility] Comment on above: Performed By: #### C DP, CP #### [facility] [address] [place] [address] Senior Investment Manager: Todd Foster MD [facility] Met[facility] 11-06-2019 Albumin [Mass/Vol] 4.3 g/dL 3.5 - 5.2 g/dL [place] Albumin/Globulin [Mass ratio] NOT REPORTED [place] ALP [Catalytic activity/Vol] 78 U/L 40 - 129 U/L [place] ALT [Catalytic activity/Vol] 32 U/L 5 - 41 U/L [place] Anion gap [Moles/Vol] 12 mmol/L 9 - 17 mmol/L [place] AST [Catalytic activity/Vol] 40 U/L High <40 [place] Bilirubin Ql (U) 0.78 mg/dL 0.3 - 1.2 mg/dL [place] Bun/Cre Ratio 22 High [place] Calcium [Mass/Vol] 9.5 mg/dL 8.6 - 10. 4 mg/dL [place] Chloride [Moles/Vol] 96 mmol/L Low 98 - 10 7 mmol/L [place] CO2 [Moles/Vol] 26 mmol/L 20 - 31 mmol/L [place] Creatinine [Mass/Vol] 0.69 mg/dL Low 0.7 - 1.2 mg/dL [place] GFR >60 >60 mL/min [place] GFR Non- >60 >60 mL/min [place] GFR/1.73 sq M predicted among non-blacks MDRD (S/P/Bld) [Vol rate/Area] NOT REPORTED [place] GFR/1.73 sq M predicted among non-blacks MDRD (S/P/Bld) [Vol rate/Area] [place] Comment on above: Average GFR for 50-5 9 years old: 93 mL/min/1.73sq m Chronic Kidney Disease: <60 mL/min/1.73sq m Kidney failure: <15 mL/min/1.73sq m eGFR calculated using average adult body mass. Additional eGFR calculator available at: http://www.[employer]ro[employer].Oyster.com/multiple_crcl_2012.htm Glucose [Mass/Vol] 113 mg/dL High 70 - 99 mg/dL [place] Interpretation and review of laboratory results Abnormal [place] Potassium [Moles/Vol] 4.3 mmol/L 3.7 - 5.3 mmol/L [place] Protein [Mass/Vol] 9.3 g/dL High 6.4 - 8.3 g/dL [place] Sodium [Moles/Vol] 134 mmol/L Low 135 - 144 mmol/L [place] Urea nitrogen [Mass/Vol] 15 mg/dL 6 - 20 mg/dL [place] EKG 12 Leadon 11-06-2019 Atrial Rate 95 BPM [place] P Glad[place] 53 degrees [place] P-R Interval 148 ms [place] Q-T Interval 344 ms [place] QRS Duration 80 ms [place] QTc Calculation (Bazett) 432 ms [place] R [place] 49 degrees [place] T [place] 45 degrees [place] Ventricular Rate 95 BPM [place] Normal sinus rhythm Normal ECG When compared with ECG of 04-MAR-2019 11:51, No significant change was found [place] Jhony, Mhpn Incoming E kg Results From [employer] - 11/06/2019 7:40 AM EDT Normal sinus rhythm Normal ECG When compared with ECG of 04-MAR-2019 11:51, No significant change was found [place] Flu A/B Ag Detectionon 11-05 Flu A/B Ag Detection Specimen Descriptio n .NASOPHARYNGEAL SWAB Special Requests NOT REPORTED Direct Exam POSITIVE for Influenza A Antigen NEGATIVE for Influenza B Antigen Report Status FINAL 11/06/2019 Normal [facility] Comment on above: Performed By: #### C JERAMIE SANTANA #### [facility] [address] [place] [address] Senior Investment Manager: Todd Foster MD Lactate, Sepsison 11-06-2019 Lactic Acid, Sepsis 1.2 mmol/L Normal 0.5-1.9 [facility] Comment on above: Performed By: #### C DP, CP #### [facility] [address] [place] [address] Senior Investment Manager: Todd Foster MD Lactic Acid,Sep Wbld NOT REPORTED Normal 0.5-1.9 [facility] Comment on above: Performed By: #### C DP, CP #### [facility] [address] [place] [phone] Senior Investment Manager: Todd Foster MD Lactic Acid, Sepsis 1.2 mmol/L 0.5 - 1. 9 mmol/L [place] Lactic Acid, Sepsis, Whole Blood NOT REPORTED 0.5 - 1.9 mmol/L [place] Lactic Acidon 11-06-2019 Lactate [Moles/Vol] 1.2 mmol/L Normal 0.5-2.2 [facility] Comment on above: Performed By: #### C DP, CP #### [facility] [address] [place] [phone] Senior Investment Manager: Todd Foster MD Lactate [Moles/Vol] 1.2 mmol/L 0.5 - 2. 2 mmol/L [place] Otheron 11-06-2019 Immature granulocytes (Bld) [#/Vol] NOT REPORTED [place] POC PANEL (G3)-ARTon 020 aPTT Coag (Bld) [Time] NOT REPORTED [place] FIO2 NOT REPORTED [place] Interpretation and review of laboratory results Abnormal [place] Negative Base Excess, Art NOT REPORTED [place] O2 Device/Flow/% NOT REPORTED [place] Oxygen saturation in Blood 96 % 95 - 98 % [place] POC HCO3 26.6 mmol/L High 22 - 26 mmol/L [place] POC pCO2 39 [place] POC pCO2 Temp NOT REPORTED mm Hg [place] POC pH 7.45 [place] POC pH Temp NOT REPORTED [place] POC PO2 80 [place] POC pO2 Temp NOT REPORTED mm Hg [place] Positive Base Excess, Art 3 High [place] TCO2 (calc), Art 28 mmol/L 24 - 30 mmol/L [place] Rapid influenza A/B antigens on 11-06-2019 Direct Exam Positive Abnormal [place] Direct Exam Negative [place] Interpretation and review of laboratory results Abnormal [place] Special Requests NOT REPORTED [place] Specimen Description .NASOPHARYNGEAL SWAB [place] XR CHEST PORTABLEon 11-06-19 XR CHEST [...] Dean Means MD 11/06/19 Final result Normal [facility] Hyperaeration/chroni c changes as well as mild bibasilar streaky opacity, nonspecific. The findings may represent atelectasis or pneumonitis. Further evaluation with follow-up CT chest exam is recommended. [place] Jhony, Mhpn Incoming R adiant Results From [employer] - 11/06/2019 2:17 AM EDT EXAM: XR [...] with follow-up CT chest exam is recommended. [place] EXAM: XR CHEST BERTRAM BLE HISTORY: [...] deformity. Surgical clips overlie the left neck. [place] CBC WITH AUTO DIFFERENTIALon 04-03-2019 Basophils (Bld) [#/Vol] 0.01 10*3/uL [facility] Basophils/100 WBC (Bld) 0.3 % [facility] Eosinophils (Bld) [#/Vol] 0.06 10*3/uL [facility] Eosinophils/100 WBC (Bld) 1.9 % [facility] Erythrocyte distribution width (RBC) [Entitic vol] 16.0 % High 11.6 - 14.8 % [facility] Hematocrit (Bld) [Volume fraction] 38.2 % Low 41 - 53 % [facility] Hemoglobin (Bld) [Mass/Vol] 11.9 g/dL Low 13.5 - 17.5 g/dL [facility] Immature granulocytes (Bld) [#/Vol] 0.01 10*3/uL [facility] Immature granulocytes/100 WBC (Bld) 0.30 % [facility] Comment on above: The IG parameter is the percentage of metamyelocytes, myelocytes, and promyelocytes. Interpretation and review of laboratory results Abnormal [facility] Lymphocytes (Bld) [#/Vol] 1.06 10*3/uL [facility] Lymphocytes/100 WBC (Bld) 33.2 % [facility] MCH (RBC) [Entitic mass] 22.2 pg Low 26 - 34 pg [facility] MCHC (RBC) [Mass/Vol] 31.2 g/dL 31 - 37 g/dL [facility] MCV (RBC) [Entitic vol] 71.1 fL Low 80 - 100 fL [facility] Monocytes (Bld) [#/Vol] 0.29 10*3/uL Low [facility] Monocytes/100 WBC (Bld) 9.1 % [facility] Neutrophils (Bld) [#/Vol] 1.76 10*3/uL [facility] Neutrophils/100 WBC (Bld) 55.2 % [facility] Comment on above: Peripheral smear rev iewed manually Nucleated RBC (Bld) [#/Vol] 0.00 10*3/uL [facility] Nucleated RBC/100 WBC (Bld) [Ratio] 0.0 % [facility] Platelet mean volume (Bld) [Entitic vol] 11.2 fL 9 - 15.5 fL [facility] Platelets (Bld) [#/Vol] 128 10*3/uL Low [facility] RBC (Bld) [#/Vol] 5.37 10*6/uL [facility] WBC (Bld) [#/Vol] 3.19 10*3/uL Low [facility] Chem 7on 04-03-2019 Anion gap [Moles/Vol] 10 mmol/L 10 - 20 mmol/L [facility] Chloride [Moles/Vol] 104 mmol/L 98 - 10 8 mmol/L [facility] Creatinine [Mass/Vol] 0.82 mg/dL 0.5 - 1.3 mg/dL [facility] GFR/1.73 sq M predicted among non-blacks MDRD (S/P/Bld) [Vol rate/Area] The eGFR should be used for monitoring renal function only and not for medication dosing. [facility] GFR/1.73 sq M.predicted CKD-EPI (S/P/Bld) [Vol rate/Area] 102 >=60 mL/min/1.73 m2 [facility] Glucose [Mass/Vol] 100 mg/dL High 65 - 99 mg/dL [facility] HCO3 [Moles/Vol] 28 mmol/L 21 - 32 mmol/L [facility] Interpretation and review of laboratory results Abnormal [facility] Potassium [Moles/Vol] 4.1 mmol/L 3.5 - 5.1 mmol/L [facility] Sodium [Moles/Vol] 138 mmol/L 135 - 145 mmol/L [facility] Urea nitrogen [Mass/Vol] 15 mg/dL 8 - 25 mg/dL [facility] Urea nitrogen/Creatinine [Mass ratio] 18.3 mg/mg [facility] ECG 12-LEADon 04-03-2019 Atrial Rate 56 BPM [facility] P Gladwin 3 degrees [facility] P-R Interval 154 ms [facility] Q-T Interval 446 ms [facility] QRS Duration 86 ms [facility] QTC Calculation (Bezet) 430 ms [facility] R Gladwin 55 degrees [facility] T Gladwin 52 degrees [facility] Ventricular Rate 56 BPM [facility] Sinus bradycardia Ot herwise normal ECG ECG Cart Interpretation see physician note for interpretation. Confirmed by Tamara Obando ([id number]) on 04/03/2019 10:38:52 AM [facility] Kinsey Ignacio MD 04/03/2019 10:14 AM ECG 12 Lead Date/Time: 04/03/2019 10:12 AM Performed by: Kinsey Ignacio MD Authorized by: Kinsey Ignacio MD Comparison: compared with previous ECG Rhythm: sinus rhythm BPM: 56 Conduction: conduction normal ST Segments: ST segments normal T Waves: T waves normal normal DE interval normal QRS interval normal QT interval Clinical impression: normal ECG [facility] MORPHOLOGYon 04-03-2019 Anisocytosis Ql (Bld) 2+ [facility] Roe cells LM Ql (Bld) 1+ [facility] Hypochromia Ql (Bld) 2+ [facility] Microcytes Ql (Bld) 2+ [facility] ealth NT Pro BNPon 04-03-2019 Interpretation and review of laboratory results Normal [facility] Natriuretic peptide.B prohormone N-Terminal [Mass/Vol] 83 pg/mL 0 - 300 pg/mL [facility] Comment on above: Please note reference range change as of 08/09/18. [employer] Study Cut-offs Rule In: < /= 50 Years >450 pg/mL 51 Years - 75 Years >900 pg/mL 76 Years - 99 Years >1800 pg/mL Rule Out: All patients <300 pg/mL [facility] TROPONINon 04-03-2019 Troponin I.cardiac [Mass/Vol] Normal [facility] Troponin I.cardiac [Mass/Vol] ng/mL <=45 ng/L [facility] XR Chest 1 Viewon 04-03-2019 EXAMINATION: XR CHES T PA/AP, 04/03/2019 HISTORY: SHORTNESS OF BREATH COMPARISON: Chest, 03/04/2019. FINDINGS: Cardiac size, mediastinal contour and pulmonary vascularity are within normal limits. The lungs are well expanded and clear. [facility] No acute cardiopulmo nary disease. Workstation ID: [id number] [facility] Interface, Rad In Fu ji Speechq - 04/03/2019 9:00 AM EDT EXAMINATION: XR CHEST PA/AP, 04/03/2019 HISTORY: SHORTNESS OF BREATH COMPARISON: Chest, 03/04/2019. FINDINGS: Cardiac size, mediastinal contour and pulmonary vascularity are within normal limits. The lungs are well expanded and clear. IMPRESSION: No acute cardiopulmonary disease. Workstation ID: [id number] [facility] Basic Metab w/rfx MGon 03-04 (cont.) Normal [facility] Comment on above: Result Comment: Aver age GFR for 50-59 years old: 93 mL/min/1.73sq m Chronic Kidney Disease: <60 mL/min/1.73sq m Kidney failure: <15 mL/min/1.73sq m eGFR calculated using average adult body mass. Additional eGFR calculator available at: http://www.[employer]/multiple_crcl_2012.htm Performed By: #### B MPX, BNP, TROPI, TSHX, CDP #### [facility] [address] [place] [address] Senior Investment Manager: Todd Foster MD Anion gap [Moles/Vol] 11 mmol/L Normal -17 [facility] Comment on above: Performed By: #### B MPX, BNP, TROPI, TSHX, CDP #### [facility] [address] [place] [address] Senior Investment Manager: Todd Foster MD BUN/CRE Ratio 20 Normal - [facility] Comment on above: Performed By: #### B MPX, BNP, TROPI, TSHX, CDP #### [facility] [address] [place] [address] Senior Investment Manager: Todd Foster MD Calcium [Mass/Vol] 9.4 mg/dL Normal 8.6-10.4 [facility] Comment on above: Performed By: #### B MPX, BNP, TROPI, TSHX, CDP #### [facility] [address] [place] [address] Senior Investment Manager: Todd Foster MD Chloride [Moles/Vol] 100 mmol/L Normal 98-107 [facility] Comment on above: Performed By: #### B MPX, BNP, TROPI, TSHX, CDP #### [facility] [address] [place] [address] Senior Investment Manager: Todd Foster MD CO2 [Moles/Vol] 27 mmol/L Normal 20-31 [facility] Comment on above: Performed By: #### B MPX, BNP, TROPI, TSHX, CDP #### [facility] [address] [place] [address] Senior Investment Manager: Todd Foster MD Creatinine [Mass/Vol] 0.59 mg/dL Low 0.70-1.20 [facility] Comment on above: Performed By: #### B MPX, BNP, TROPI, TSHX, CDP #### [facility] [address] [place] [address] Senior Investment Manager: Todd Foster MD GFR, Amer >60 Normal >60 [facility] Comment on above: Performed By: #### B MPX, BNP, TROPI, TSHX, CDP #### [facility] [address] [place] [phone] Senior Investment Manager: Todd Foster MD GFR,non Amer >60 Normal >60 [facility] Comment on above: Performed By: #### B MPX, BNP, TROPI, TSHX, CDP #### [facility] [address] [place] [address] Senior Investment Manager: Todd Foster MD Glucose [Mass/Vol] 113 mg/dL High 70-99 [facility] Comment on above: Performed By: #### B MPX, BNP, TROPI, TSHX, CDP #### [facility] [address] [place], [place] [phone] Senior Investment Manager: Todd Foster MD Potassium [Moles/Vol] 4.4 mmol/L Normal 3.7-5.3 [facility] Comment on above: Performed By: #### B MPX, BNP, TROPI, TSHX, CDP #### [facility] [address] [place] [address] Senior Investment Manager: Todd Foster MD Sodium [Moles/Vol] 138 mmol/L Normal 135-144 [facility] Comment on above: Performed By: #### B MPX, BNP, TROPI, TSHX, CDP #### [facility] [address] [place], [place] [phone] Senior Investment Manager: Todd Foster MD Urea nitrogen [Mass/Vol] 12 mg/dL Normal 6-20 [facility] Comment on above: Performed By: #### B MPX, BNP, TROPI, TSHX, CDP #### [facility] [address] [place] [address] Senior Investment Manager: Todd Foster MD Staging: NOT REPORTED Normal [facility] Comment on above: Performed By: #### B MPX, BNP, TROPI, TSHX, CDP #### [facility] [address] [place] [address] Senior Investment Manager: Todd Foster MD Brain Natri. Peptideon 03-04 Natriuretic peptide B (Bld) [Mass/Vol] Pro-BNP Reference Range: Normal [facility] Comment on above: Result Comment: Rule Out: <300 Combs Zone: Age <50 300-450 Age 50-75 300-900 Age >75 300-1800 Usually represents mild to moderate HF but other cardiopulmonary causes cannot be ruled out. Rule In: Age <50 >450 Age 50-75 >900 Age >75 >1800 Performed By: #### B MPX, BNP, TROPI, TSHX, CDP #### [facility] [address] [place] [address] Senior Investment Manager: Todd Foster MD Natriuretic peptide B (Bld) [Mass/Vol] 568 pg/mL High <300 [facility] Comment on above: Result Comment: Pro- BNP results cannot be compared to BNP results. Performed By: #### B MPX, BNP, TROPI, TSHX, CDP #### [facility] [address] [place] [phone] Senior Investment Manager: Todd Foster MD CBC with Diffon 03-04-2019 Abs. Basophil Normal 0.0-0.2 [facility] Comment on above: Performed By: #### B MPX, BNP, TROPI, TSHX, CDP #### [facility] [address] [place] [phone] Senior Investment Manager: Todd Foster MD Abs.Neutrophil (Seg) 1.35 k/uL Low 2.1-6.5 [facility] Comment on above: Performed By: #### B MPX, BNP, TROPI, TSHX, CDP #### [facility] [address] [place] [phone] Senior Investment Manager: Todd Foster MD Basophils/100 WBC (Bld) Normal 0-2 [facility] Comment on above: Performed By: #### B MPX, BNP, TROPI, TSHX, CDP #### [facility] [address] [place] [phone] Senior Investment Manager: Todd Foster MD Eosinophils (Bld) [#/Vol] 0.05 10*3/uL Normal 0.0-0.4 [facility] Comment on above: Performed By: #### B MPX, BNP, TROPI, TSHX, CDP #### [facility] [address] [place] [address] Senior Investment Manager: Todd Foster MD Eosinophils/100 WBC (Bld) 2 % Normal 0-5 [facility] Comment on above: Performed By: #### B MPX, BNP, TROPI, TSHX, CDP #### [facility] [address] [place] [address] Senior Investment Manager: Todd Foster MD Lymphocytes (Bld) [#/Vol] 1.08 10*3/uL Normal 1.0-4.8 [facility] Comment on above: Performed By: #### B MPX, BNP, TROPI, TSHX, CDP #### [facility] [address] [place] [address] Senior Investment Manager: Todd Foster MD Lymphocytes/100 WBC (Bld) 40 % Normal 13-44 [facility] Comment on above: Performed By: #### B MPX, BNP, TROPI, TSHX, CDP #### [facility] [address] [place] [address] Senior Investment Manager: Todd Foster MD Monocytes (Bld) [#/Vol] 0.22 10*3/uL Normal 0.0-1.0 [facility] Comment on above: Performed By: #### B MPX, BNP, TROPI, TSHX, CDP #### [facility] [address] [place] [address] Senior Investment Manager: Todd Foster MD Monocytes/100 WBC (Bld) 8 % Normal 5-9 [facility] Comment on above: Performed By: #### B MPX, BNP, TROPI, TSHX, CDP #### [facility] [address] [place] [address] Senior Investment Manager: Todd Foster MD Morphology Julián (Bld) [Interp] Manual Differential Performed Normal [facility] Comment on above: Performed By: #### B MPX, BNP, TROPI, TSHX, CDP #### [facility] [address] [place] [address] Senior Investment Manager: Todd Foster MD Neutrophil (Seg) 50 % Normal 39-75 [facility] Comment on above: Performed By: #### B MPX, BNP, TROPI, TSHX, CDP #### [facility] [address] [place] [address] Senior Investment Manager: Todd Foster MD Total Cells Counted 50 Normal [facility] Comment on above: Performed By: #### B MPX, BNP, TROPI, TSHX, CDP #### [facility] [address] [place] [address] Senior Investment Manager: Todd Foster MD Erythrocyte distribution width (RBC) [Ratio] 16.3 % High 12.1-15.2 [facility] Comment on above: Performed By: #### B MPX, BNP, TROPI, TSHX, CDP #### [facility] [address] [place] [address] Senior Investment Manager: Todd Foster MD Hematocrit (Bld) [Volume fraction] 34.7 % Low 41-53 [facility] Comment on above: Performed By: #### B MPX, BNP, TROPI, TSHX, CDP #### [facility] [address] [place] [address] Senior Investment Manager: Todd Foster MD Hemoglobin (Bld) [Mass/Vol] 11.1 g/dL Low 13.5-17.5 [facility] Comment on above: Performed By: #### B MPX, BNP, TROPI, TSHX, CDP #### [facility] [address] [place] [address] Senior Investment Manager: Todd Foster MD MCH (RBC) [Entitic mass] 23.3 pg Low 26-34 [facility] Comment on above: Performed By: #### B MPX, BNP, TROPI, TSHX, CDP #### [facility] [address] [place] [address] Senior Investment Manager: Todd Foster MD MCHC (RBC) [Mass/Vol] 32.1 g/dL Normal 31-37 [facility] Comment on above: Performed By: #### B MPX, BNP, TROPI, TSHX, CDP #### [facility] [address] [place] [address] Senior Investment Manager: Todd Foster MD MCV (RBC) [Entitic vol] 72.5 fL Low 80-100 [facility] Comment on above: Performed By: #### B MPX, BNP, TROPI, TSHX, CDP #### [facility] [address] [place] [address] Senior Investment Manager: Todd Foster MD Platelets (Bld) [#/Vol] 127 10*3/uL Low 140-450 [facility] Comment on above: Performed By: #### B MPX, BNP, TROPI, TSHX, CDP #### [facility] [address] [place] [address] Senior Investment Manager: Todd Foster MD RBC (Bld) [#/Vol] 4.79 10*6/uL Normal 4.5-5.9 [facility] Comment on above: Performed By: #### B MPX, BNP, TROPI, TSHX, CDP #### [facility] [address] [place] [address] Senior Investment Manager: Todd Foster MD WBC (Bld) [#/Vol] 2.7 10*3/uL Critically low 3.5-11.0 [facility] Comment on above: Performed By: #### B MPX, BNP, TROPI, TSHX, CDP #### [facility] [address] [place] [address] Senior Investment Manager: Todd Foster MD Abs.Imm.Granulocyte NOT REPORTED Normal 0.00-0.30 [facility] Comment on above: Performed By: #### B MPX, BNP, TROPI, TSHX, CDP #### [facility] [address] [place] [address] Senior Investment Manager: Todd Foster MD Auto Diff Performed NOT REPORTED Normal [facility] Comment on above: Performed By: #### B MPX, BNP, TROPI, TSHX, CDP #### [facility] [address] [place] [address] Senior Investment Manager: Todd Foster MD Immature granulocytes (Bld) [#/Vol] NOT REPORTED Normal 0 [facility] Comment on above: Performed By: #### B MPX, BNP, TROPI, TSHX, CDP #### [facility] [address] [place] [address] Senior Investment Manager: Todd Foster MD NRBC Automated NOT REPORTED Normal [facility] Comment on above: Performed By: #### B MPX, BNP, TROPI, TSHX, CDP #### [facility] [address] [place], [place] [phone] Senior Investment Manager: Todd Foster MD Platelet mean volume (Bld) [Entitic vol] NOT REPORTED Normal 6.0-12.0 [facility] Comment on above: Performed By: #### B MPX, BNP, TROPI, TSHX, CDP #### [facility] [address] [place] [address] Senior Investment Manager: Todd Foster MD Platelets (Bld) [#/Vol] NOT REPORTED Normal [facility] Comment on above: Performed By: #### B MPX, BNP, TROPI, TSHX, CDP #### [facility] [address] [place] [address] Senior Investment Manager: Todd Foster MD RBC morphology finding Nom (Bld) NOT REPORTED Normal [facility] Comment on above: Performed By: #### B MPX, BNP, TROPI, TSHX, CDP #### [facility] [address] [place] [address] Senior Investment Manager: Todd Foster MD WBC Morphology NOT REPORTED Normal [facility] Comment on above: Performed By: #### B MPX, BNP, TROPI, TSHX, CDP #### [facility] [address] [place] [address] Senior Investment Manager: Todd Foster MD TSH w/reflex to FT4on 2018 TSH Qn 4.13 m[IU]/L Normal 0.30-5.00 [facility] Comment on above: Performed By: #### B MPX, BNP, TROPI, TSHX, CDP #### [facility] [address] [place] [address] Senior Investment Manager: Todd Foster MD Troponinon 03-04-2019 Troponin I.cardiac [Mass/Vol] ng/mL Normal <0.03 [facility] Comment on above: Result Comment: Trop onin T results cannot be compared to Troponin-I results. Performed By: #### B MPX, BNP, TROPI, TSHX, CDP #### [facility] [address] [place] [phone] Senior Investment Manager: Todd Foster MD Troponin I.cardiac [Mass/Vol] Normal [facility] Comment on above: Result Comment: Refe [...] B MPX, BNP, TROPI, TSHX, CDP #### [facility] [address] [place] [address] Senior Investment Manager: Todd Foster MD Troponin I.cardiac [Mass/Vol] NOT REPORTED Normal 0-22 [facility] Comment on above: Performed By: #### B MPX, BNP, TROPI, TSHX, CDP #### [facility] [address] [place] [address] Senior Investment Manager: Todd Foster MD XR CHEST PORTABLEon 03-04-20 XR CHEST PORTABLE CHEST X-RAY, 1 VIEW HISTORY: Shortness of breath. COMPARISON: 02/03/2019. FINDINGS: The heart, robert, and mediastinum are unremarkable. The lungs are grossly clear. There are no pleural effusions. There is no pneumothorax. IMPRESSION: No evidence of acute cardiopulmonary disease. Interpreted by: Thomas Christensen MD Signed by: Thomas Christensen MD 03/04/19 Final result Normal [facility] CBC with Diffon 02-03-2019 Abs. Basophil 0.00 k/uL Normal 0.0-0.2 [facility] Comment on above: Performed By: #### C DP, CP #### [facility] [address] [place], [place] [phone] Senior Investment Manager: Todd Foster MD Abs.Neutrophil (Seg) 1.60 k/uL Low 2.1-6.5 [facility] Comment on above: Performed By: #### C DP, CP #### [facility] [address] [place] [address] Senior Investment Manager: Todd Foster MD Basophils/100 WBC (Bld) 1 % Normal 0-2 [facility] Comment on above: Performed By: #### C DP, CP #### [facility] [address] [place] [address] Senior Investment Manager: Todd Foster MD Eosinophils (Bld) [#/Vol] 0.00 10*3/uL Normal 0.0-0.4 [facility] Comment on above: Performed By: #### C DP, CP #### [facility] [address] [place] [address] Senior Investment Manager: Todd Foster MD Eosinophils/100 WBC (Bld) 2 % Normal 0-5 [facility] Comment on above: Performed By: #### C DP, CP #### [facility] [address] [place] [address] Senior Investment Manager: Todd Foster MD Erythrocyte distribution width (RBC) [Ratio] 16.6 % High 12.1-15.2 [facility] Comment on above: Performed By: #### C DP, CP #### [facility] [address] [place], [place] [phone] Senior Investment Manager: Todd Foster MD Hematocrit (Bld) [Volume fraction] 33.5 % Low 41-53 [facility] Comment on above: Performed By: #### C DP, CP #### [facility] [address] [place] [address] Senior Investment Manager: Todd Foster MD Hemoglobin (Bld) [Mass/Vol] 10.6 g/dL Low 13.5-17.5 [facility] Comment on above: Performed By: #### C DP, CP #### [facility] [address] [place] [phone] Senior Investment Manager: Todd Foster MD Lymphocytes (Bld) [#/Vol] 0.70 10*3/uL Low 1.0-4.8 [facility] Comment on above: Performed By: #### C DP, CP #### [facility] [address] [place] [address] Senior Investment Manager: Todd Foster MD Lymphocytes/100 WBC (Bld) 27 % Normal 13-44 [facility] Comment on above: Performed By: #### C DP, CP #### [facility] [address] [place] [address] Senior Investment Manager: Todd Foster MD MCH (RBC) [Entitic mass] 23.1 pg Low 26-34 [facility] Comment on above: Performed By: #### C DP, CP #### [facility] [address] [place] [address] Senior Investment Manager: Todd Foster MD MCHC (RBC) [Mass/Vol] 31.7 g/dL Normal 31-37 [facility] Comment on above: Performed By: #### C DP, CP #### [facility] [address] [place] [address] [phone] Senior Investment Manager: Todd Foster MD MCV (RBC) [Entitic vol] 73.0 fL Low 80-100 [facility] Comment on above: Performed By: #### C DP, CP #### [facility] [address] [place] [phone] Senior Investment Manager: Todd Foster MD Monocytes (Bld) [#/Vol] 0.30 10*3/uL Normal 0.0-1.0 [facility] Comment on above: Performed By: #### C DP, CP #### [facility] [address] [place] [phone] Senior Investment Manager: Todd Foster MD Monocytes/100 WBC (Bld) 10 % High 5-9 [facility] Comment on above: Performed By: #### C DP, CP #### [facility] [address] [place] [address] [phone] Senior Investment Manager: Todd Foster MD Neutrophil (Seg) 60 % Normal 39-75 [facility] Comment on above: Performed By: #### C DP, CP #### [facility] [address] [place] [address] [phone] Senior Investment Manager: Todd Foster MD Platelets (Bld) [#/Vol] 106 10*3/uL Low 140-450 [facility] Comment on above: Performed By: #### C DP, CP #### [facility] [address] [place] [address] [phone] Senior Investment Manager: Todd Foster MD RBC (Bld) [#/Vol] 4.59 10*6/uL Normal 4.5-5.9 [facility] Comment on above: Performed By: #### C DP, CP #### [facility] [address] [place] [phone] Senior Investment Manager: Todd Foster MD WBC (Bld) [#/Vol] 2.6 10*3/uL Critically low 3.5-11.0 [facility] Comment on above: Performed By: #### C DP, CP #### [facility] [address] [place] [address] Senior Investment Manager: Todd Foster MD Abs.Imm.Granulocyte NOT REPORTED Normal 0.00-0.30 [facility] Comment on above: Performed By: #### C DP, CP #### [facility] [address] [place] [address] Senior Investment Manager: Todd Foster MD Auto Diff Performed NOT REPORTED Normal [facility] Comment on above: Performed By: #### C DP, CP #### [facility] [address] [place] [address] Senior Investment Manager: Todd Foster MD Immature granulocytes (Bld) [#/Vol] NOT REPORTED Normal 0 [facility] Comment on above: Performed By: #### C DP, CP #### [facility] [address] [place] [phone] Senior Investment Manager: Todd Foster MD NRBC Automated NOT REPORTED Normal [facility] Comment on above: Performed By: #### C DP, CP #### [facility] [address] [place] [address] Senior Investment Manager: Todd Foster MD Platelet mean volume (Bld) [Entitic vol] NOT REPORTED Normal 6.0-12.0 [facility] Comment on above: Performed By: #### C DP, CP #### [facility] [address] [place] [address] Senior Investment Manager: Todd Foster MD Platelets (Bld) [#/Vol] NOT REPORTED Normal [facility] Comment on above: Performed By: #### C DP, CP #### [facility] [address] [place] [address] Senior Investment Manager: Todd Foster MD RBC morphology finding Nom (Bld) NOT REPORTED Normal [facility] Comment on above: Performed By: #### C DP, CP #### [facility] [address] [place] [address] Senior Investment Manager: Todd Foster MD WBC Morphology NOT REPORTED Normal [facility] Comment on above: Performed By: #### C DP, CP #### [facility] [address] [place] [address] Senior Investment Manager: Todd Foster MD Comp Metabolic Profon 2018 (cont.) Normal [facility] Comment on above: Result Comment: Aver age GFR for 50-59 years old: 93 mL/min/1.73sq m Chronic Kidney Disease: <60 mL/min/1.73sq m Kidney failure: <15 mL/min/1.73sq m eGFR calculated using average adult body mass. Additional eGFR calculator available at: http://[email or web address].Oyster.com/multiple_crcl_2012.htm Performed By: #### C DP, CP #### [facility] [address] [place] [address] Senior Investment Manager: Todd Foster MD Albumin [Mass/Vol] 4.1 g/dL Normal 3.5-5.2 [facility] Comment on above: Performed By: #### C DP, CP #### [facility] [address] [place] [address] Senior Investment Manager: Todd Foster MD Alkaline Phos 90 U/L Normal 40-129 [facility] Comment on above: Performed By: #### C DP, CP #### [facility] [address] [place] [address] Senior Investment Manager: Todd Foster MD ALT [Catalytic activity/Vol] 28 U/L Normal 5-41 [facility] Comment on above: Performed By: #### C DP, CP #### [facility] [address] [place], [place] [phone] Senior Investment Manager: Todd Foster MD Anion gap [Moles/Vol] 12 mmol/L Normal 9-17 [facility] Comment on above: Performed By: #### C DP, CP #### [facility] [address] [place], [place] [phone] Senior Investment Manager: Todd Foster MD AST [Catalytic activity/Vol] 30 U/L Normal <40 [facility] Comment on above: Performed By: #### C DP, CP #### [facility] [address] [place], [place] [phone] Senior Investment Manager: Todd Foster MD Bilirubin Ql (U) 0.85 mg/dL Normal 0.30-1.20 [facility] Comment on above: Performed By: #### C DP, CP #### [facility] [address] [place], [place] [phone] Senior Investment Manager: Todd Foster MD BUN/CRE Ratio 27 High 9-20 [facility] Comment on above: Performed By: #### C DP, CP #### [facility] [address] [place], [place] [phone] Senior Investment Manager: Todd Foster MD Calcium [Mass/Vol] 9.2 mg/dL Normal 8.6-10.4 [facility] Comment on above: Performed By: #### C DP, CP #### [facility] [address] [place], [place] [phone] Senior Investment Manager: Todd Foster MD Chloride [Moles/Vol] 99 mmol/L Normal 98-107 [facility] Comment on above: Performed By: #### C DP, CP #### [facility] [address] [place], [place] [phone] Senior Investment Manager: Todd Foster MD CO2 [Moles/Vol] 26 mmol/L Normal 20-31 [facility] Comment on above: Performed By: #### C DP, CP #### [facility] [address] [place] [address] Senior Investment Manager: Todd Foster MD Creatinine [Mass/Vol] 0.49 mg/dL Low 0.70-1.20 [facility] Comment on above: Performed By: #### C DP, CP #### [facility] [address] [place] [address] Senior Investment Manager: Todd Foster MD GFR, Amer >60 Normal >60 [facility] Comment on above: Performed By: #### C DP, CP #### [facility] [address] [place] [address] Senior Investment Manager: Todd Foster MD GFR,non Amer >60 Normal >60 [facility] Comment on above: Performed By: #### C DP, CP #### [facility] [address] [place] [address] Senior Investment Manager: Todd Foster MD Glucose [Mass/Vol] 130 mg/dL High 70-99 [facility] Comment on above: Performed By: #### C DP, CP #### [facility] [address] [place] [address] Senior Investment Manager: Todd Foster MD Potassium [Moles/Vol] 3.9 mmol/L Normal 3.7-5.3 [facility] Comment on above: Performed By: #### C DP, CP #### [facility] [address] [place] [address] Senior Investment Manager: Todd Foster MD Protein [Mass/Vol] 7.8 g/dL Normal 6.4-8.3 [facility] Comment on above: Performed By: #### C DP, CP #### [facility] [address] [place] [address] Senior Investment Manager: Todd Foster MD Sodium [Moles/Vol] 137 mmol/L Normal 135-144 [facility] Comment on above: Performed By: #### C DP, CP #### [facility] [address] [place], [place] [phone] Senior Investment Manager: Todd Foster MD Urea nitrogen [Mass/Vol] 13 mg/dL Normal 6-20 [facility] Comment on above: Performed By: #### C DP, CP #### [facility] [address] [place] [address] Senior Investment Manager: Todd Foster MD Albumin/Globulin [Mass ratio] NOT REPORTED Normal 1.0-2.5 [facility] Comment on above: Performed By: #### C DP, CP #### [facility] [address] [place] [address] Senior Investment Manager: Todd Foster MD Staging: NOT REPORTED Normal [facility] Comment on above: Performed By: #### C DP, CP #### [facility] [address] [place] [address] Senior Investment Manager: Todd Foster MD XR CHEST (2 VW)on [...] Kanika Terry DO 02/03/19 Final result Normal [facility] XR Knee Right 2 Views (Stand [...] acute changes. Invalid Interpretation Code FUJI SYNAPSE [facility] Drug Testi ngon 06-03-2018 [facility] See EMR Normal [facility] Comment on above: Result Comment: Scan daryl report from [facility] ([id number], [place], [place])can be found in the [place] EMR ([employer]) system. Performed By: #### M CHEMOILLEN ####Unless otherwise noted, all testing performed by [facility], [place] [id number]: [id number] Director: Jack Mendoza M.D. FOOTon 05-15-2018 FOOT Final ReportAccession No: [id number] Performed: May 15 2018 3:20PMExamination: LEFT [...] Physician: JONATHAN BELTRAN M.D.Trans: n/a : cc: [facility] KNEES BILAT STANDING 1 VIEW ONLYon 05-15-2018 KNEES BILAT STANDING 1 VIEW ONLY Final ReportAccession No: [id number] Performed: May 15 2018 3:20PMExamination: KNEES [...] Physician: JONATHAN BELTRAN M.D.Trans: n/a : cc: [facility]2018 [facility] See [facility] Normal [facility] Comment on above: Result Comment: Scan daryl report from [facility] ([id number] [facility] [place])can be found in the [facility] ([facility]) system. Performed By: #### M LMILLEN ####Unless otherwise noted, all testing performed by [facility] [employer] [place] [address] [address], [place] [phone]: [id number] Director: Jack Mendoza M.D. [facility] 05-06-2018 [facility] See EMR [facility] Comment on above: Result Comment: Scan daryl report from [facility] ([id number], [place], [place])can be found in the [place] EMR ([facility]) system. Performed By: #### M DIANELYS ####Unless otherwise noted, all testing performed by [place] [address] [address], [place] [phone]: [id number] Director: Jack Mendoza M.D. CT LOWER EXT W/O CONTRASTon 04-20-2018 CT LOWER EXT W/O CONTRAST Final ReportAccession No: [id number] Performed: Apr 20 2018 4:26PMExamination: RIGHT [...] SOFÍA MAIN D.O.Trans: sfalk : cc: Normal [facility] Drug Testi ngon 04-08-2018 [facility] See EMR Normal [facility] Comment on above: Result Comment: Scan daryl report from [facility] ([id number], [place], [place])can be found in the [place] EMR ([employer]) system. Performed By: #### M LMILLEN ####Unless otherwise noted, all testing performed by [facility], [place] [phone]: [id number] Director: Jack Mendoza M.D. ANKLE 2 VIEWSon 03-31-2018 ANKLE 2 VIEWS Final ReportAccession No: [id number] Performed: Mar 31 2018 10:50AMExamination: RIGHT ANKLE 2 VIEWSEXAM TYPE: ANKLE 2 VIEWS RIGHTEXAM DATE AND TIME: 03/31/2018 10:50 AM EDTINDICATION: 52-year-old male with chronic pain.COMPARISON: None.TECHNIQUE: 2 views of the right ankle.FINDINGS: No acute fracture. Joints and ankle mortise are anatomicallyaligned.Soft tissues appear unremarkable.IMPRESSION:No acute fracture or traumatic malalignment.Interpreting Physician: KHADAR BETH D.O.Trans: dcarr : cc: Normal [facility] FOOTon 03-31-2018 FOOT Final ReportAccession No: [id number] Performed: Mar 31 2018 10:50AMExamination: RIGHT [...] KHADAR BETH D.O.Trans: dcarr : cc: Normal [facility] Drug Testi ngon 03-11-2018 [facility] See EMR Normal [facility] Comment on above: Result Comment: Scan daryl report from [facility] ([id number], [place], [place])can be found in the [place] EMR ([facility]) system. Performed By: #### M LMILLEN ####Unless otherwise noted, all testing performed by [address] [phone]: [id number] Director: Jack Mendoza M.D. CCP Antibodieson 03-08-2018 CCP Antibodies 135.8 Unit High 0.0-20.0 [facility] Comment on above: Result Comment: Refe rence Ranges:<20Units Cwjmyrsy84-23Qogob Weakly Rrjaknll29-81Kxoky Moderative Positive>=60Units Strong PositiveTest Performed by [facility] [employer] [address] [place] [address] Performed By: #### C RPQT, URIC, SEDR, CCPAB ####Unless otherwise noted, all testing performed by [address] [phone]: [id number] Director: Jack Mendoza M.D. CRP, C-Reactive Proteinon Protein mass conc 5.0 mg/L Normal 0.0-10.0 [facility] Comment on above: Performed By: #### C RPQT, URIC, SEDR, CCPAB ####Unless otherwise noted, all testing performed by [address] [phone]: [id number] Director: Jack Mendoza M.D. Rheumatoid Factoron 03-08-20 18 Rheumatoid Factor Positive Abnormal Negative [facility] Comment on above: Performed By: #### R F ####Unless otherwise noted, all testing performed by [address] [phone]: [id number] Director: Jack Mendoza M.D. Rheumatoid Factor Titer 1:32 Normal [facility] Comment on above: Performed By: #### R F ####Unless otherwise noted, all testing performed by [address] [phone]: [id number] Director: Jack Mendoza M.D. Sed Rateon 03-08-2018 Sed Rate 38 MM/hr. High 0-15 [facility] Comment on above: Performed By: #### C RPQT, URIC, SEDR, CCPAB ####Unless otherwise noted, all testing performed by [address] [phone]: [id number] Director: Jack Mendoza M.D. Uric Acidon 03-08-2018 Urate mass conc 6.2 mg/dL Normal 3.4-8.5 [facility] Comment on above: Performed By: #### C RPQT, URIC, SEDR, CCPAB ####Unless otherwise noted, [facility].[place], [place] [phone]: [id number] Director: Jack Mendoza M.D. ANKLEon 03-07-2018 ANKLE Final ReportAccession No: [id number] Performed: Mar 07 2018 3:34PMExamination: RIGHT [...] KATE DUEÑAS M.D.Trans: lwolfe : cc: Normal [facility] FOOTon 03-07-2018 FOOT Final ReportAccession No: [id number] Performed: Mar 07 2018 3:34PMExamination: RIGHT [...] or stress fracture.Interpreting Physician: KJ VERA M.D.Trans: [id number] : cc: Normal [facility] HIPon 03-07-2018 HIP Final ReportAccession No: [id number] Performed: Mar 07 2018 3:34PMExamination: RIGHT [...] KATE DUEÑAS M.D.Trans: n/a : cc: Normal [facility] KNEE W/PATELLAon 03-07-2018 KNEE W/PATELLA Final ReportAccession No: [id number] Performed: Mar 07 2018 3:34PMExamination: RIGHT [...] Mild tomoderatetricompartmental osteoarthritis.Interpreting Physician: JOVITA LIRA M.D.Trans: [id number] : cc: Normal [facility] See EMR Normal [facility] Comment on above: Result Comment: Scan daryl report from [facility] ([id number]can be found in the [place] EMR ([facility]) system. Performed By: #### M LMILLEN ####Unless otherwise noted, all testing performed by [address], [place] [phone]: [id number] Director: Jack Mendoza M.D. [facility] See EMR Normal [facility] Comment on above: Result Comment: Scan daryl report from [facility] ([id number]can be found in the [place] EMR ([facility] [employer]) system. Performed By: #### M LMILLEN ####Unless otherwise noted, all testing performed by [address], [place] [phone]: [id number] Director: Jack Mendoza M.D. [facility] See EMR Normal [facility] Comment on above: Result Comment: Scan daryl [id number] [facility] [place]can be found in the [place] EMR ([facility] [employer]) system. Performed By: #### M LMILLEN ####Unless otherwise noted, all testing performed by [address], [place] [phone]: [id number] Director: Jack Mendoza M.D. CT SPINE CERVICAL W/O VAZQUEZMia Arash 08-06-2017 CT SPINE CERVICAL W/O CONTRAST Final ReportAccession No: [id number] Performed: Aug 06 2017 6:52PMExamination: CT [...] Report Signed: 08/07/2017 12:48:25 AMInterpreting Physician: ALEX,Trans: [id number] : cc: Normal [facility] SHOULDER 2 OR MORE VIEWSon 1 10-07-2016 SHOULDER 2 OR MORE VIEWS Final ReportAccession No: [id number] Performed: Aug 06 2017 6:36PMExamination: LEFT [...] Physician: PETROS GOLDBERG D.O.Trans: : cc: Normal [facility] CBC and Differentialon 05-05 Basophils 0.0 K/mcL Invalid Interpretation Code 0 - 0.2 [facility] Basophils 0.3 % Invalid Interpretation Code [facility] Eosinophils 0.1 K/mcL Invalid Interpretation Code 0 - 0.5 [facility] Erythrocytes (RBC) 5.02 M/mcL Invalid Interpretation Code 4.0 - 5.5 [facility] Hematocrit (HCT) 36.9 % Low 37.9 - 49.2 % [facility] Hemoglobin (HGB) 11.6 g/dL Low 12.9 - 16.9 g/dL [facility] Interpretation and review of laboratory results Abnormal Invalid Interpretation Code [facility] Lymphocytes 1.3 K/mcL Invalid Interpretation Code 0.9 - 3.6 [facility] MCH 23.1 pg Low 27.7 - 34.6 pg [facility] MCHC 31.4 g/dL Low 32.9 - 35.5 g/dL [facility] MCV 73.5 fL Low 82.8 - 99.3 [facility] Monocytes 0.5 K/mcL Invalid Interpretation Code 0.2 - 0.6 [facility] Neutrophils 3.1 K/mcL Invalid Interpretation Code 1.4 - 6.8 [facility] Platelet mean volume (PMV) 8.1 fL Invalid Interpretation Code 6.6 - 10.8 [facility] Platelets 122 K/mcL Low 139 - 354 [facility] RDW-CA 15.6 % High 10 - 14.3 % [facility] Segmented Neut 62.5 % Invalid Interpretation Code [facility] T8 suppressor/100 cells 1.1 10*3/uL Invalid Interpretation Code [facility] T8 suppressor/100 cells 26.9 10*3/uL Invalid Interpretation Code [facility] T8 suppressor/100 cells 9.2 10*3/uL Invalid Interpretation Code [facility] WBC (Leukocytes) 5.0 K/mcL Invalid Interpretation Code 3.6 - 10.4 [facility] CRP, C-Reactive Proteinon CRP - Inflammation < 2.9 Invalid Interpretation Code 0 - 10 mg/L [facility] Comprehensive Metabolic Pane ras 05-05-2017 Alanine aminotransferase (ALT) 44 U/L Invalid Interpretation Code 14 - 65 U/L [facility] Albumin 3.4 g/dL Invalid Interpretation Code 3.2 - 5.2 g/dL [facility] Alkaline phosphatase (ALP) 87 U/L Invalid Interpretation Code 40 - 150 U/L [facility] Aspartate aminotransferase (AST) 38 U/L Invalid Interpretation Code 0 - 45 U/L [facility] Calcium 8.5 mg/dL Invalid Interpretation Code 8.4 - 10.2 mg/dL [facility] Chloride 103 mmol/L Invalid Interpretation Code 98 - 108 mmol/L [facility] CO2 25 mmol/L Invalid Interpretation Code 21 - 32 mmol/L [facility] Creatinine 0.68 mg/dL Invalid Interpretation Code 0.5 - 1.3 mg/dL [facility] eGFR (black) mL/min/{1.73_m2} Invalid Interpretation Code ml/min/1.73s q.m [facility] eGFR (non-black) mL/min/{1.73_m2} Invalid Interpretation Code ml/min/1.73s q.m [facility] Glucose 102 mg/dL High 70 - 99 mg/dL [facility] Potassium 3.9 mmol/L Invalid Interpretation Code 3.5 - 5.1 mmol/L [facility] Protein 8.5 g/dL High 6 - 8 g/dL [facility] Sodium 138 mmol/L Invalid Interpretation Code 135 - 145 mmol/L [facility] Urea nitrogen 18 mg/dL Invalid Interpretation Code 8 - 25 mg/dL [facility] Urine, bilirubin presence 1.2 mg/dL Invalid Interpretation Code 0.3 - 1.2 mg/dL [facility] Hemoglobin A1con 05-05-2017 HbA1c 4.9 % Invalid Interpretation Code 4.1 - 6.5 % [facility] Sedimentation Rateon 017 Sed Rate 21 MM/hr. High 0 - 15 [facility] TSHon 05-05-2017 Thyroid stimulating hormone (TSH) 3.07 uIU/mL Invalid Interpretation Code 0.320 - 5.000 [facility] Uric Acidon 05-05-2017 Urate 5.1 mg/dL Invalid Interpretation Code 3.4 - 8.5 mg/dL [facility] Vital Signs Date Time Vital Sign Value Performing Clinician Facility 05-30-2025 15:08-0400 Body height 182.9 cm Sofía Dukes MD Work Phone: [facility] 05-30-2025 15:08-0400 Body mass index (BMI) [Ratio] 37.43 kg/m2 Sofía Dukes MD Work Phone: [facility] 05-30-2025 15:08-0400 Body weight 125.19 kg Sofía Dukes MD Work Phone: [facility] 05-16-2025 13:36-0400 Respiratory rate 16 /min Carolyn Jalloh MD Work Phone: [facility] 05-16-2025 12:21-0400 Body temperature 97.7 [degF] Carolyn Jalloh MD Work Phone: [facility] 05-16-2025 12:21-0400 Diastolic blood pressure 87 mm[Hg] Carolyn Jalloh MD Work Phone: [facility] 05-16-2025 12:21-0400 Heart rate 76 /min Carolyn Jalloh MD Work Phone: [facility] 05-16-2025 12:21-0400 SaO2% (BldA) [Mass fraction] 98 % Carolyn Jalloh MD Work Phone: [facility] 05-16-2025 12:21-0400 Systolic blood pressure 159 mm[Hg] Carolyn Jalloh MD Work Phone: [facility] 05-12-2025 14:07-0400 Body height 182.9 cm Carolyn Jalloh MD Work Phone: [facility] 05-12-2025 14:07-0400 Body mass index (BMI) [Ratio] 37.52 kg/m2 Carolyn Jalloh MD Work Phone: [facility] 05-12-2025 14:07-0400 Body weight 125.5 kg Carolyn Jalloh MD Work Phone: [facility] 05-09-2025 14:07-0400 Body height 182.9 cm Daniel Hammer MD Work Phone: [facility] 05-09-2025 14:07-0400 Body mass index (BMI) [Ratio] 35.94 kg/m2 Daniel Hammer MD Work Phone: [facility] 05-09-2025 14:07-0400 Body weight 120.2 kg Daniel Hammer MD Work Phone: [facility] 04-05-2025 09:33-0400 Respiratory rate 18 /min Kanchan Jacobs MD Work Phone: [facility] 04-05-2025 07:52-0400 Body temperature 98.01 [degF] Kanchan Jacobs MD Work Phone: [facility] 04-05-2025 07:52-0400 Diastolic blood pressure 63 mm[Hg] Kanchan Jacobs MD Work Phone: [facility] 04-05-2025 07:52-0400 Heart rate 78 /min Kanchan Jacobs MD Work Phone: [facility] 04-05-2025 07:52-0400 SaO2% (BldA) [Mass fraction] 99 % Kanchan Jacobs MD Work Phone: [facility] 04-05-2025 07:52-0400 Systolic blood pressure 100 mm[Hg] Kanchan Jacobs MD Work Phone: [facility] 04-04-2025 23:47-0400 SaO2% (BldA) [Mass fraction] 98.4 % Kanchan Jacobs MD Work Phone: [facility] 04-02-2025 12:15-0400 Body height 182.9 cm Kanchan Jacobs MD Work Phone: [facility] 04-02-2025 12:15-0400 Body mass index (BMI) [Ratio] 40.69 kg/m2 Kanchan Jacobs MD Work Phone: [facility] 04-02-2025 12:15-0400 Body weight 136.08 kg Kanchan Jacobs MD Work Phone: [facility] 01-04-2025 14:00-0400 Body temperature 97.9 [degF] Cecilia Janet DPM Work Phone: [facility] 01-04-2025 14:00-0400 Diastolic blood pressure 78 mm[Hg] Cecilia Henagar DPM Work Phone: [facility] 01-04-2025 14:00-0400 Heart rate 87 /min Cecilia Janet DPM Work Phone: [facility] 01-04-2025 14:00-0400 Respiratory rate 16 /min Cecilia Janet DPM Work Phone: [facility] 01-04-2025 14:00-0400 SaO2% (BldA) [Mass fraction] 90 % Cecilia Henagar DPM Work Phone: [facility] 01-04-2025 14:00-0400 Systolic blood pressure 122 mm[Hg] Cecilia Henagar DPM Work Phone: [facility] 01-02-2025 14:26-0400 Diastolic blood pressure 72 mm[Hg] WFrancesca Berryske III, DO Work Phone: [facility] 01-02-2025 14:26-0400 Heart rate 87 /min WFrancesca Berryske III, DO Work Phone: [facility] 01-02-2025 14:26-0400 Systolic blood pressure 109 mm[Hg] W. Craske III, DO Work Phone: [facility] 01-02-2025 14:07-0400 Body height 182.9 cm WFrancesca Berryske III, DO Work Phone: [facility] 01-02-2025 14:07-0400 Body mass index (BMI) [Ratio] 39.47 kg/m2 W. Craske III, DO Work Phone: [facility] 01-02-2025 14:07-0400 Body weight 132 kg WFrancesca Chavese III, DO Work Phone: [facility] 01-02-2025 14:07-0400 SaO2% (BldA) [Mass fraction] 92 % Luis Daniel Cao III, DO Work Phone: [facility] 12-21-2024 13:17-0400 Body temperature 97 [degF] Cecilia Henagar DPM Work Phone: [facility] 12-21-2024 13:17-0400 Diastolic blood pressure 88 mm[Hg] Cecilia Henagar DPM Work Phone: [facility] 12-21-2024 13:17-0400 Heart rate 90 /min Cecilia Henagar DPM Work Phone: [facility] 12-21-2024 13:17-0400 Respiratory rate 16 /min Cecilia Janet DPM Work Phone: [facility] 12-21-2024 13:17-0400 SaO2% (BldA) [Mass fraction] 95 % Cecilia Henagar DPM Work Phone: [facility] 12-21-2024 13:17-0400 Systolic blood pressure 137 mm[Hg] Cecilia Janet DPM Work Phone: [facility] 11-23-2024 14:00-0400 Body temperature 97.39 [degF] Cecilia Janet DPM Work Phone: [facility] 11-23-2024 14:00-0400 Diastolic blood pressure 86 mm[Hg] Cecilia Janet DPM Work Phone: [facility] 11-23-2024 14:00-0400 Heart rate 91 /min Cecilia Henagar DPM Work Phone: [facility] 11-23-2024 14:00-0400 Respiratory rate 16 /min Cecilia Janet DPM Work Phone: [facility] 11-23-2024 14:00-0400 SaO2% (BldA) [Mass fraction] 91 % Cecilia Henagar DPM Work Phone: [facility] 11-23-2024 14:00-0400 Systolic blood pressure 145 mm[Hg] Cecilia Janet DPM Work Phone: [facility] 10-24-2024 09:21-0500 Respiratory rate 16 /min Cameron Vargas MD Work Phone: [facility] 10-24-2024 08:09-0500 Body temperature 97.9 [degF] Cameron Vargas MD Work Phone: [facility] 10-24-2024 08:09-0500 Diastolic blood pressure 76 mm[Hg] Cameron Vargas MD Work Phone: [facility] 10-24-2024 08:09-0500 Heart rate 87 /min Cameron Vargas MD Work Phone: [facility] 10-24-2024 08:09-0500 SaO2% (BldA) [Mass fraction] 87 % Cameron Vargas MD Work Phone: [facility] 10-24-2024 08:09-0500 Systolic blood pressure 122 mm[Hg] Cameron Vargas MD Work Phone: [facility] 10-23-2024 05:00-0500 Body mass index (BMI) [Ratio] 42.1 kg/m2 Cameron Vargas MD Work Phone: [facility] 10-23-2024 05:00-0500 Body weight 140.8 kg Cameron Vargas MD Work Phone: [facility] 10-20-2024 10:21-0500 Body height 182.9 cm Cameron Vargas MD Work Phone: [facility] 07-05-2024 10:44-0500 Respiratory rate 18 /min Cameron Vargas MD Work Phone: [facility] 07-05-2024 09:42-0500 Body temperature 98.4 [degF] Cameron Vargas MD Work Phone: [facility] 07-05-2024 09:42-0500 Diastolic blood pressure 79 mm[Hg] Cameron Vargas MD Work Phone: [facility] 07-05-2024 09:42-0500 Heart rate 80 /min Cameron Vargas MD Work Phone: [facility] 07-05-2024 09:42-0500 SaO2% (BldA) [Mass fraction] 95 % Cameron Vargas MD Work Phone: [facility] 07-05-2024 09:42-0500 Systolic blood pressure 123 mm[Hg] Cameron Vargas MD Work Phone: [facility] 07-02-2024 14:29-0500 Body height 182.9 cm Cameron Vargas MD Work Phone: [facility] 07-02-2024 14:29-0500 Body mass index (BMI) [Ratio] 35.26 kg/m2 Cameron Vargas MD Work Phone: [facility] 07-02-2024 14:29-0500 Body weight 117.94 kg Cameron Vargas MD Work Phone: [facility] 06-15-2024 02:52-0400 Body temperature 98 [degF] Dr. Reg Rogel [facility] 06-15-2024 02:52-0400 Diastolic blood pressure 89 mm[Hg] Dr. Reg Rogel [facility] 06-15-2024 02:52-0400 Heart rate 94 /min Dr. Reg Rogel [facility] 06-15-2024 02:52-0400 Oxygen saturation in Blood 95 % Dr. Reg Rogel [facility] 06-15-2024 02:52-0400 Respiratory rate 16 /[facility] 06-15-2024 02:52-0400 Systolic blood pressure 132 mm[Hg] Dr. Reg Hartman [facility] 06-07-2024 21:02-0400 Body temperature 98.2 [degF] Dr. Reg Lou [facility] 06-07-2024 21:02-0400 Diastolic blood pressure 86 mm[Hg] Dr. Reg Hartman [facility] 06-07-2024 21:02-0400 Heart rate 90 /min Dr. Reg Rogel [facility] 06-07-2024 21:02-0400 Oxygen saturation in Blood 96 % Dr. Reg Hartman [facility] 06-07-2024 21:02-0400 Respiratory rate 20 /min [facility] 06-07-2024 21:02-0400 Systolic blood pressure 129 mm[Hg] Dr. Reg Hartman [facility] 06-01-2024 03:48-0400 Body temperature 98.2 [degF] [facility] 06-01-2024 03:48-0400 Diastolic blood pressure 85 mm[Hg] Dr. Reg Hartman [facility] 06-01-2024 03:48-0400 Heart rate 92 /min Dr. Reg Rogel [facility] 06-01-2024 03:48-0400 Oxygen saturation in Blood 95 % Dr. Reg Hartman [facility] 06-01-2024 03:48-0400 Respiratory rate 18 /min [facility] 06-01-2024 03:48-0400 Systolic blood pressure 132 mm[facility]Hg[facility]-24-[facility] 20:54-0400 Body temperature 97.8 [degF] Dr. Reg Lou [facility] 05-24-2024 20:54-0400 Diastolic blood pressure 82 mm[Hg] Dr. Reg Hartman [facility] 05-24-2024 20:54-0400 Heart rate 86 /min [facility] 05-24-2024 20:54-0400 Oxygen saturation in Blood 98 % Dr. Reg Hartman [facility] 05-24-2024 20:54-0400 Respiratory rate 18 /min [facility] 05-24-2024 20:54-0400 Systolic blood pressure 127 mm[Hg] Dr. Reg Hartman [facility] 05-22-2024 11:53-0400 Body weight 120.[address] [facility] 05-18-2024 05:17-0400 Body temperature 98 [degF] [facility] 05-18-2024 05:17-0400 Diastolic blood pressure 89 mm[Hg] Dr. Reg Rogel [facility] 05-18-2024 05:17-0400 Heart rate 83 /min Dr. Reg Rogel [facility] 05-18-2024 05:17-0400 Oxygen saturation in Blood 98 % Dr. Reg Hartman [facility] 05-18-2024 05:17-0400 Respiratory rate 18 /[facility] 05-18-2024 05:17-0400 Systolic blood pressure 124 mm[Hg] Dr. Reg Hartman [facility] 05-10-2024 19:57-0400 Body temperature 98.2 [degF] [facility] 05-10-2024 19:57-0400 Diastolic blood pressure 82 mm[Hg] Dr. Reg Hartman [facility] 05-10-2024 19:57-0400 Heart rate 83 /min Dr. Reg Hartman [facility] 05-10-2024 19:57-0400 Oxygen saturation in Blood 97 % Dr. Reg Hartman [facility] 05-10-2024 19:57-0400 Respiratory rate 18 /min [facility]. [facility] 05-10-2024 19:57-0400 Systolic blood pressure 130 mm[Hg] Dr. Reg Hartman [facility] 04-26-2024 20:08-0400 Body temperature 98.1 [degF] [facility] 04-26-2024 20:08-0400 Diastolic blood pressure 84 mm[Hg] Dr. Reg Hartman [facility] 04-26-2024 20:08-0400 Heart rate 85 /min Dr. Reg Rogel [facility] 04-26-2024 20:08-0400 Oxygen saturation in Blood 98 % Dr. Reg Hartman [facility] 04-26-2024 20:08-0400 Systolic blood pressure 127 mm[Hg] Dr. Reg Hartman [facility] 04-22-2024 15:17-0400 Body weight 125.[address] Reg Rogel [facility] 04-20-2024 05:30-0400 Body temperature 97.7 [degF] [facility] 04-20-2024 05:30-0400 Diastolic blood pressure 88 mm[Hg] Dr. Reg Hartman [facility] 04-20-2024 05:30-0400 Heart rate 80 /min Dr. Reg Hartman [facility] 04-20-2024 05:30-0400 Oxygen saturation in Blood 97 % Dr. Reg Hartman [facility] 04-20-2024 05:30-0400 Respiratory rate 18 /min [facility]. [facility] 04-20-2024 05:30-0400 Systolic blood pressure 132 mm[Hg] Dr. Reg Hartman [facility] 04-12-2024 20:13-0400 Body temperature 98 [degF] [facility] [facility] 04-12-2024 20:13-0400 Diastolic blood pressure 81 mm[Hg] Dr. Reg Hartman [facility] 04-12-2024 20:13-0400 Heart rate 88 /min Dr. Reg Rogel [facility] 04-12-2024 20:13-0400 Systolic blood pressure 128 mm[Hg] Dr. Reg Hartman [facility] 04-10-2024 17:23-0400 PAIN LEVEL 6 {score} Dr. Reg Rogel [facility] 03-23-2024 19:22-0400 Body weight 125.[address] Reg Rogel [facility] 03-22-2024 20:23-0400 Body temperature 97.7 [degF] Dr. Reg Rogel [facility] 03-22-2024 20:23-0400 Diastolic blood pressure 82 mm[Hg] Dr. Reg Hartman [facility] 03-22-2024 20:23-0400 Heart rate 85 /[facility] 03-22-2024 20:23-0400 Oxygen saturation in Blood 97 % Dr. Reg Hartman [facility] 03-22-2024 20:23-0400 Respiratory rate 18 /min Dr. Reg Rogel [facility] 03-22-2024 20:23-0400 Systolic blood pressure 132 mm[Hg] Dr. Reg Hartman [facility] 01-17-2024 15:27-0400 Diastolic blood pressure 77 mm[Hg] ALEXEY Radford DPM Work Phone: [facility] 01-17-2024 15:27-0400 Systolic blood pressure 124 mm[Hg] ALEXEY Radford DPM Work Phone: [facility] 01-17-2024 15:03-0400 Body temperature 98.4 [degF] ALEXEY SANTANAM Work Phone: [facility] 01-17-2024 15:03-0400 Heart rate 78 /min CJ Hassmann DPM Work Phone: [facility] 01-17-2024 15:03-0400 SaO2% (BldA) [Mass fraction] 93 % CJ Hassmann DPM Work Phone: [facility] 09-09-2023 13:04-0500 Body temperature 98.01 [degF] Cecilia Henagar DPM Work Phone: [facility] 09-09-2023 13:04-0500 Diastolic blood pressure 80 mm[Hg] Cecilia Janet DPM Work Phone: [facility] 09-09-2023 13:04-0500 Heart rate 88 /min Cecilia Henagar DPM Work Phone: [facility] 09-09-2023 13:04-0500 Respiratory rate 16 /min Cecilia Henagar DPM Work Phone: [facility] 09-09-2023 13:04-0500 SaO2% (BldA) [Mass fraction] 91 % Cecilia Henagar DPM Work Phone: [facility] 09-09-2023 13:04-0500 Systolic blood pressure 168 mm[Hg] Cecilia Henagar DPM Work Phone: [facility] 09-02-2023 14:33-0500 Body temperature 98.6 [degF] Cecilia Henagar DPM Work Phone: [facility] 09-02-2023 14:33-0500 Diastolic blood pressure 83 mm[Hg] Cecilia Henagar DPM Work Phone: [facility] 09-02-2023 14:33-0500 Heart rate 89 /min Cecilia Henagar DPM Work Phone: [facility] 09-02-2023 14:33-0500 Respiratory rate 16 /min Cecilia Janet DPM Work Phone: [facility] 09-02-2023 14:33-0500 Systolic blood pressure 145 mm[Hg] Cecilia Janet DPM Work Phone: [facility] 08-26-2023 13:16-0500 Body temperature 98.29 [degF] Cecilia Henagar DPM Work Phone: [facility] 08-26-2023 13:16-0500 Diastolic blood pressure 91 mm[Hg] Cecilia Janet DPM Work Phone: [facility] 08-26-2023 13:16-0500 Heart rate 85 /min Cecilia Janet DPM Work Phone: [facility] 08-26-2023 13:16-0500 Respiratory rate 16 /min Cecilia Henagar DPM Work Phone: [facility] 08-26-2023 13:16-0500 SaO2% (BldA) [Mass fraction] 92 % Cecilia Janet DPM Work Phone: [facility] 08-26-2023 13:16-0500 Systolic blood pressure 173 mm[Hg] Cecilia Henagar DPM Work Phone: [facility] 08-19-2023 10:54-0500 Body temperature 97.3 [degF] Cecilia Janet DPM Work Phone: [facility] 08-19-2023 10:54-0500 Diastolic blood pressure 82 mm[Hg] Cecilia Janet DPM Work Phone: [facility] 08-19-2023 10:54-0500 Heart rate 91 /min Cecilia Henagar DPM Work Phone: [facility] 08-19-2023 10:54-0500 Respiratory rate 16 /min Cecilia Henagar DPM Work Phone: [facility] 08-19-2023 10:54-0500 SaO2% (BldA) [Mass fraction] 90 % Cecilia Henagar DPM Work Phone: [facility] 08-19-2023 10:54-0500 Systolic blood pressure 155 mm[Hg] Cecilia Henagar DPM Work Phone: [facility] 08-11-2023 15:19-0500 Respiratory rate 16 /min Christian Porter MD Work Phone: [facility] 08-11-2023 09:35-0500 Body temperature 98.2 [degF] Christian Porter MD Work Phone: [facility] 08-11-2023 09:35-0500 Diastolic blood pressure 68 mm[Hg] Christian Porter MD Work Phone: [facility] 08-11-2023 09:35-0500 Heart rate 67 /min Christian Porter MD Work Phone: [facility] 08-11-2023 09:35-0500 SaO2% (BldA) [Mass fraction] 97 % Christian Porter MD Work Phone: [facility] 08-11-2023 09:35-0500 Systolic blood pressure 129 mm[Hg] Christian Porter MD Work Phone: [facility] 07-29-2023 14:11-0500 Body height 182.9 cm Christian Porter MD Work Phone: [facility] 07-29-2023 14:11-0500 Body mass index (BMI) [Ratio] 32.55 kg/m2 Christian Porter MD Work Phone: [facility] 07-29-2023 14:11-0500 Body weight 108.86 kg Christian Porter MD Work Phone: [facility] 07-29-2023 13:29-0500 Body temperature 98.71 [degF] Cecilia Henagar DPM Work Phone: [facility] 07-29-2023 13:29-0500 Diastolic blood pressure 78 mm[Hg] Cecilia Henagar DPM Work Phone: [facility] 07-29-2023 13:29-0500 Heart rate 89 /min Cecilia Janet DPM Work Phone: [facility] 07-29-2023 13:29-0500 Respiratory rate 18 /min Cecilia Janet DPM Work Phone: [facility] 07-29-2023 13:29-0500 SaO2% (BldA) [Mass fraction] 94 % Cecilia Janet DPM Work Phone: [facility] 07-29-2023 13:29-0500 Systolic blood pressure 138 mm[Hg] Cecilia Janet DPM Work Phone: [facility] 07-15-2023 07:38-0500 Body temperature 98.71 [degF] Cecilia Janet DPM Work Phone: [facility] 07-15-2023 07:38-0500 Diastolic blood pressure 91 mm[Hg] Cecilia Henagar DPM Work Phone: [facility] 07-15-2023 07:38-0500 Heart rate 93 /min Cecilia Henagar DPM Work Phone: [facility] 07-15-2023 07:38-0500 Respiratory rate 18 /min Cecilia Henagar DPM Work Phone: [facility] 07-15-2023 07:38-0500 SaO2% (BldA) [Mass fraction] 95 % Cecilia Henagar DPM Work Phone: [facility] 07-15-2023 07:38-0500 Systolic blood pressure 162 mm[Hg] Cecilia Henagar DPM Work Phone: [facility] 07-08-2023 13:31-0500 Body temperature 98.6 [degF] Cecilia Janet DPM Work Phone: [facility] 07-08-2023 13:31-0500 Diastolic blood pressure 90 mm[Hg] Cecilia Janet DPM Work Phone: [facility] 07-08-2023 13:31-0500 Heart rate 78 /min Cecilia Janet DPM Work Phone: [facility] 07-08-2023 13:31-0500 Respiratory rate 16 /min Cecilia Henagar DPM Work Phone: [facility] 07-08-2023 13:31-0500 SaO2% (BldA) [Mass fraction] 94 % Cecilia Janet DPM Work Phone: [facility] 07-08-2023 13:31-0500 Systolic blood pressure 169 mm[Hg] Cecilia Janet DPM Work Phone: [facility] 07-01-2023 13:35-0500 Body height 182.9 cm Cecilia Henagar DPM Work Phone: [facility] 07-01-2023 13:35-0500 Body mass index (BMI) [Ratio] 32.96 kg/m2 Cecilia Janet DPM Work Phone: [facility] 07-01-2023 13:35-0500 Body weight 110.22 kg Cecilia Henagar DPM Work Phone: [facility] 07-01-2023 13:27-0500 Body temperature 97.5 [degF] Cecilia Henagar DPM Work Phone: [facility] 07-01-2023 13:27-0500 Diastolic blood pressure 77 mm[Hg] Cecilia Henagar DPM Work Phone: [facility] 07-01-2023 13:27-0500 Heart rate 73 /min Cecilia Henagar DPM Work Phone: [facility] 07-01-2023 13:27-0500 Respiratory rate 18 /min Cecilia Henagar DPM Work Phone: [facility] 07-01-2023 13:27-0500 SaO2% (BldA) [Mass fraction] 95 % Cecilia Henagar DPM Work Phone: [facility] 07-01-2023 13:27-0500 Systolic blood pressure 149 mm[Hg] Cecilia Henagar DPM Work Phone: [facility] 06-17-2023 09:06-0400 Body temperature 98.49 [degF] Quyen Blairka PROCESS CAMERA OPERATOR Work Phone: [facility] 06-17-2023 09:06-0400 Diastolic blood pressure 75 mm[Hg] Quyen Domka PROCESS CAMERA OPERATOR Work Phone: [facility] 06-17-2023 09:06-0400 Heart rate 80 /min Quyen Domka PROCESS CAMERA OPERATOR Work Phone: [facility] 06-17-2023 09:06-0400 Respiratory rate 16 /min Quyen Domka PROCESS CAMERA OPERATOR Work Phone: [facility] 06-17-2023 09:06-0400 SaO2% (BldA) [Mass fraction] 97 % Quyen Blairka PROCESS CAMERA OPERATOR Work Phone: [facility] 06-17-2023 09:06-0400 Systolic blood pressure 138 mm[Hg] Quyen Domka PROCESS CAMERA OPERATOR Work Phone: [facility] 06-12-2023 00:27-0400 Diastolic blood pressure 69 mm[Hg] Nathan Collins MD Work Phone: [facility] 06-12-2023 00:27-0400 Heart rate 77 /min Nathan Collins MD Work Phone: [facility] 06-12-2023 00:27-0400 SaO2% (BldA) [Mass fraction] 95 % Nathan Collins MD Work Phone: [facility] 06-12-2023 00:27-0400 Systolic blood pressure 110 mm[Hg] Nathan Collins MD Work Phone: [facility] 05-24-2023 23:58-0400 Body mass index (BMI) [Ratio] 31.22 kg/m2 Nathan Collins MD Work Phone: [facility] 05-24-2023 23:58-0400 Body temperature 98.01 [degF] Nathan Collins MD Work Phone: [facility] 05-24-2023 23:58-0400 Body weight 104.42 kg Nathan Collins MD Work Phone: [facility] 05-24-2023 23:58-0400 Diastolic blood pressure 60 mm[Hg] Nathan Collins MD Work Phone: [facility] 05-24-2023 23:58-0400 Heart rate 72 /min Nathan Collins MD Work Phone: [facility] 05-24-2023 23:58-0400 Respiratory rate 16 /min Nathan Collins MD Work Phone: [facility] 05-24-2023 23:58-0400 SaO2% (BldA) [Mass fraction] 97 % Nathan Collins MD Work Phone: [facility] 05-24-2023 23:58-0400 Systolic blood pressure 120 mm[Hg] Nathan Collins MD Work Phone: [facility] 04-26-2023 11:14-0400 Body temperature 97.7 [degF] Av Sarath Gal Wound Nurse [facility] 04-26-2023 11:14-0400 Diastolic blood pressure 85 mm[Hg] Av Sarath Gal Wound Nurse [facility] 04-26-2023 11:14-0400 Heart rate 74 /min Avg Sarath Gal Wound Nurse [facility] 04-26-2023 11:14-0400 Respiratory rate 18 /min Av Sarath Gal Wound Nurse [facility] 04-26-2023 11:14-0400 Systolic blood pressure 143 mm[Hg] Avg Sarath Gal Wound Nurse [facility] 04-18-2023 12:17-0400 Body height 183.1 cm Nathan Hayden MD Work Phone: [facility] 04-18-2023 12:17-0400 Body mass index (BMI) [Ratio] 31.11 kg/m2 Nathan Hayden MD Work Phone: [facility] 04-18-2023 12:17-0400 Body temperature 97.2 [degF] Nathan Hayden MD Work Phone: [facility] 04-18-2023 12:17-0400 Body weight 104.33 kg Nathan Hayden MD Work Phone: [facility] 04-18-2023 12:17-0400 Diastolic blood pressure 80 mm[Hg] Nathan Hayden MD Work Phone: [facility] 04-18-2023 12:17-0400 Heart rate 84 /min Nathan Hayden MD Work Phone: [facility] 04-18-2023 12:17-0400 Respiratory rate 18 /min Nathan Hayden MD Work Phone: [facility] 04-18-2023 12:17-0400 SaO2% (BldA) [Mass fraction] 93 % Nathan Hayden MD Work Phone: [facility] 04-18-2023 12:17-0400 Systolic blood pressure 138 mm[Hg] Nathan Hayden MD Work Phone: [facility] 04-07-2023 10:10-0400 Body height 183.1 cm Nathan Hayden MD Work Phone: [facility] 04-07-2023 10:10-0400 Body mass index (BMI) [Ratio] 31.24 kg/m2 Nathan Hayden MD Work Phone: [facility] 04-07-2023 10:10-0400 Body temperature 97.9 [degF] Nathan Hayden MD Work Phone: [facility] 04-07-2023 10:10-0400 Body weight 104.78 kg Nathan Hayden MD Work Phone: [facility] 04-07-2023 10:10-0400 Diastolic blood pressure 82 mm[Hg] Nathan Hayden MD Work Phone: [facility] 04-07-2023 10:10-0400 Heart rate 84 /min Nathan Hayden MD Work Phone: [facility] 04-07-2023 10:10-0400 Respiratory rate 18 /min Nathan Hayden MD Work Phone: [facility] 04-07-2023 10:10-0400 SaO2% (BldA) [Mass fraction] 97 % Nathan Hayden MD Work Phone: [facility] 04-07-2023 10:10-0400 Systolic blood pressure 124 mm[Hg] Nathan Hayden MD Work Phone: [facility] 03-31-2023 08:12-0400 Body height 182.9 cm Nathan Hayden MD Work Phone: [facility] 03-31-2023 08:12-0400 Body mass index (BMI) [Ratio] 31.18 kg/m2 Nathan Hayden MD Work Phone: [facility] 03-31-2023 08:12-0400 Body temperature 97.59 [degF] Nathan Hayden MD Work Phone: [facility] 03-31-2023 08:12-0400 Body weight 104.33 kg Nathan Hayden MD Work Phone: [facility] 03-31-2023 08:12-0400 Diastolic blood pressure 82 mm[Hg] Nathan Hayden MD Work Phone: [facility] 03-31-2023 08:12-0400 Heart rate 112 /min Nathan Hayden MD Work Phone: [facility] 03-31-2023 08:12-0400 Respiratory rate 16 /min Nathan Hayden MD Work Phone: [facility] 03-31-2023 08:12-0400 SaO2% (BldA) [Mass fraction] 98 % Nathan Hayden MD Work Phone: [facility] 03-31-2023 08:12-0400 Systolic blood pressure 138 mm[Hg] Nathan Hayden MD Work Phone: [facility] 03-23-2023 18:10-0400 Body temperature 98.1 [degF] Nathan Collins MD Work Phone: [facility] 03-23-2023 18:10-0400 Diastolic blood pressure 66 mm[Hg] Nathan Collins MD Work Phone: [facility] 03-23-2023 18:10-0400 Heart rate 72 /min Nathan Collins MD Work Phone: [facility] 03-23-2023 18:10-0400 Respiratory rate 16 /min Nathan Collins MD Work Phone: [facility] 03-23-2023 18:10-0400 SaO2% (BldA) [Mass fraction] 99 % Nathan Collins MD Work Phone: [facility] 03-23-2023 18:10-0400 Systolic blood pressure 120 mm[Hg] Nathan Collins MD Work Phone: [facility] 03-22-2023 11:25-0400 Body temperature 98.2 [degF] Power Nelson MD Work Phone: [facility] 03-22-2023 11:25-0400 Diastolic blood pressure 73 mm[Hg] Power Nelson MD Work Phone: [facility] 03-22-2023 11:25-0400 Heart rate 68 /min Power Nelson MD Work Phone: [facility] 03-22-2023 11:25-0400 Respiratory rate 19 /min Power Nelson MD Work Phone: [facility] 03-22-2023 11:25-0400 SaO2% (BldA) [Mass fraction] 94 % Power Nelson MD Work Phone: [employer] [facility] 03-22-2023 11:25-0400 Systolic blood pressure 114 mm[Hg] Power Nelson MD Work Phone: [facility] 03-17-2023 03:12-0400 Body height 182.9 cm Power Nelson MD Work Phone: [employer] [facility] 03-16-2023 23:00-0400 Body mass index (BMI) [Ratio] 31.19 kg/m2 Power Nelson MD Work Phone: [facility] 03-16-2023 23:00-0400 Body weight 104.33 kg Power Nelson MD Work Phone: [facility] 03-16-2023 20:44-0400 Diastolic blood pressure 77 mm[Hg] Shai Leonard MD Work Phone: [facility] 03-16-2023 20:44-0400 Heart rate 68 /min Shai Leonard MD Work Phone: [facility] 03-16-2023 20:44-0400 Respiratory rate 16 /min Shai Leonard MD Work Phone: [facility] 03-16-2023 20:44-0400 SaO2% (BldA) [Mass fraction] 96 % Shai Leonard MD Work Phone: [facility] 03-16-2023 20:44-0400 Systolic blood pressure 138 mm[Hg] Shai Leonard MD Work Phone: [facility] 03-16-2023 19:21-0400 Body temperature 97 [degF] Shai Leonard MD Work Phone: [facility] 03-16-2023 16:51-0400 Body mass index (BMI) [Ratio] 29.84 kg/m2 Shai Leonard MD Work Phone: [facility] 03-16-2023 16:51-0400 Body weight 99.79 kg Shai Leonard MD Work Phone: [facility] Comment on above: reported 02-27-2023 00:00-0400 Diastolic blood pressure 57 mm[Hg] Sahi Leonard MD Work Phone: [facility] 02-27-2023 00:00-0400 Heart rate 63 /min Shai Leonard MD Work Phone: [facility] 02-27-2023 00:00-0400 Respiratory rate 16 /min Shai Leonard MD Work Phone: [facility] 02-27-2023 00:00-0400 SaO2% (BldA) [Mass fraction] 96 % Shai Leonard MD Work Phone: [facility] 02-27-2023 00:00-0400 Systolic blood pressure 100 mm[Hg] Shai Leonard MD Work Phone: [facility] 02-26-2023 20:37-0400 Body height 182.9 cm Shia Leonard MD Work Phone: [facility] 02-26-2023 20:36-0400 Body temperature 97.39 [degF] Shai Leonard MD Work Phone: [facility] 02-15-2023 15:30-0400 Body temperature 97 [degF] Ami Hay DRAFTER AUTOMOTIVE DESIGN LAYOUT-PROCESS CAMERA OPERATOR Work Phone: [facility] 02-15-2023 15:30-0400 Diastolic blood pressure 78 mm[Hg] Ami Hay DRAFTER AUTOMOTIVE DESIGN LAYOUT-PROCESS CAMERA OPERATOR Work Phone: [facility] 02-15-2023 15:30-0400 Heart rate 76 /min Ami Hay DRAFTER AUTOMOTIVE DESIGN LAYOUT-PROCESS CAMERA OPERATOR Work Phone: [facility] 02-15-2023 15:30-0400 Respiratory rate 18 /min Ami Hay DRAFTER AUTOMOTIVE DESIGN LAYOUT-PROCESS CAMERA OPERATOR Work Phone: [facility] 02-15-2023 15:30-0400 Systolic blood pressure 127 mm[Hg] Ami Hay DRAFTER AUTOMOTIVE DESIGN LAYOUT-PROCESS CAMERA OPERATOR Work Phone: [facility] 02-08-2023 15:17-0400 Body height 182.9 cm Kristi Bark DPM Work Phone: [facility] 02-08-2023 15:17-0400 Body mass index (BMI) [Ratio] 30.8 kg/m2 Kristi Bark DPM Work Phone: [facility] 02-08-2023 15:17-0400 Body temperature 97.81 [degF] Kristi Bryan DPM Work Phone: [facility] 02-08-2023 15:17-0400 Body weight 103 kg Kristi Bryan DPM Work Phone: [facility] 02-08-2023 13:16-0400 Body temperature 96.91 [degF] Ami Hay DRAFTER AUTOMOTIVE DESIGN LAYOUT-PROCESS CAMERA OPERATOR Work Phone: [facility] 02-08-2023 13:16-0400 Diastolic blood pressure 87 mm[Hg] Ami Hay DRAFTER AUTOMOTIVE DESIGN LAYOUT-PROCESS CAMERA OPERATOR Work Phone: [facility] 02-08-2023 13:16-0400 Heart rate 70 /min Ami Hay DRAFTER AUTOMOTIVE DESIGN LAYOUT-PROCESS CAMERA OPERATOR Work Phone: [facility] 02-08-2023 13:16-0400 Respiratory rate 18 /min Ami Hay DRAFTER AUTOMOTIVE DESIGN LAYOUT-PROCESS CAMERA OPERATOR Work Phone: [facility] 02-08-2023 13:16-0400 Systolic blood pressure 142 mm[Hg] Ami Hay DRAFTER AUTOMOTIVE DESIGN LAYOUT-PROCESS CAMERA OPERATOR Work Phone: [facility] 01-26-2023 10:56-0400 Body height 182.9 cm Nathan Hayden MD Work Phone: [facility] 01-26-2023 10:56-0400 Body mass index (BMI) [Ratio] 29.97 kg/m2 Nathan Hayden MD Work Phone: [facility] 01-26-2023 10:56-0400 Body temperature 98.49 [degF] Nathan Hayden MD Work Phone: [facility] 01-26-2023 10:56-0400 Body weight 100.25 kg Nathan Hayden MD Work Phone: [facility] 01-26-2023 10:56-0400 Diastolic blood pressure 64 mm[Hg] Nathan Hayden MD Work Phone: [facility] 01-26-2023 10:56-0400 Heart rate 93 /min Nathan Hayden MD Work Phone: [facility] 01-26-2023 10:56-0400 Respiratory rate 16 /min Nathan Hayden MD Work Phone: [facility] 01-26-2023 10:56-0400 SaO2% (BldA) [Mass fraction] 93 % Nathan Hayden MD Work Phone: [facility] 01-26-2023 10:56-0400 Systolic blood pressure 134 mm[Hg] Nathan Hayden MD Work Phone: [facility] 01-25-2023 13:45-0400 Body temperature 96.01 [degF] Ami Hay DRAFTER AUTOMOTIVE DESIGN LAYOUT-PROCESS CAMERA OPERATOR Work Phone: [facility] 01-25-2023 13:45-0400 Diastolic blood pressure 82 mm[Hg] Ami Hay DRAFTER AUTOMOTIVE DESIGN LAYOUT-PROCESS CAMERA OPERATOR Work Phone: [facility] 01-25-2023 13:45-0400 Heart rate 82 /min Ami Hay DRAFTER AUTOMOTIVE DESIGN LAYOUT-PROCESS CAMERA OPERATOR Work Phone: [facility] 01-25-2023 13:45-0400 Respiratory rate 19 /min Ami Hay DRAFTER AUTOMOTIVE DESIGN LAYOUT-PROCESS CAMERA OPERATOR Work Phone: [facility] 01-25-2023 13:45-0400 Systolic blood pressure 132 mm[Hg] Ami Hay DRAFTER AUTOMOTIVE DESIGN LAYOUT-PROCESS CAMERA OPERATOR Work Phone: [facility] 01-18-2023 13:40-0400 Body temperature 97.59 [degF] Ami Hay DRAFTER AUTOMOTIVE DESIGN LAYOUT-PROCESS CAMERA OPERATOR Work Phone: [facility] 01-18-2023 13:40-0400 Diastolic blood pressure 66 mm[Hg] Ami Hay DRAFTER AUTOMOTIVE DESIGN LAYOUT-PROCESS CAMERA OPERATOR Work Phone: [facility] 01-18-2023 13:40-0400 Heart rate 73 /min Ami Hay DRAFTER AUTOMOTIVE DESIGN LAYOUT-PROCESS CAMERA OPERATOR Work Phone: [facility] 01-18-2023 13:40-0400 Respiratory rate 19 /min Ami Hay DRAFTER AUTOMOTIVE DESIGN LAYOUT-PROCESS CAMERA OPERATOR Work Phone: [facility] 01-18-2023 13:40-0400 Systolic blood pressure 108 mm[Hg] Ami Hay DRAFTER AUTOMOTIVE DESIGN LAYOUT-PROCESS CAMERA OPERATOR Work Phone: 2(418)969-[address] [place] [address] 12-28-2022 13:39-0400 Body temperature 96.6 [degF] Ami Hay DRAFTER AUTOMOTIVE DESIGN LAYOUT-PROCESS CAMERA OPERATOR Work Phone: 0(290)688-010620 [place] [address] 12-28-2022 13:39-0400 Diastolic blood pressure 81 mm[Hg] Ami Hay DRAFTER AUTOMOTIVE DESIGN LAYOUT-PROCESS CAMERA OPERATOR Work Phone: 6(718)517-69[address] [place] [address] 12-28-2022 13:39-0400 Heart rate 73 /min Ami Hay DRAFTER AUTOMOTIVE DESIGN LAYOUT-PROCESS CAMERA OPERATOR Work Phone: 1(576)232-040020 [place] [address] 12-28-2022 13:39-0400 Respiratory rate 20 /min Ami Hay DRAFTER AUTOMOTIVE DESIGN LAYOUT-PROCESS CAMERA OPERATOR Work Phone: 7(921)886-215020 [place] [address] 12-28-2022 13:39-0400 Systolic blood pressure 125 mm[Hg] Ami Hay DRAFTER AUTOMOTIVE DESIGN LAYOUT-PROCESS CAMERA OPERATOR Work Phone: 4(858)267-761720 [place] [address] 12-21-2022 13:08-0400 Body temperature 96.8 [degF] Ami Hay DRAFTER AUTOMOTIVE DESIGN LAYOUT-PROCESS CAMERA OPERATOR Work Phone: 4(015)823-915820 [place] [address] 12-21-2022 13:08-0400 Diastolic blood pressure 75 mm[Hg] Ami Hay DRAFTER AUTOMOTIVE DESIGN LAYOUT-PROCESS CAMERA OPERATOR Work Phone: 0(159)064-213720 [place] [address] 12-21-2022 13:08-0400 Heart rate 88 /min Ami Hay DRAFTER AUTOMOTIVE DESIGN LAYOUT-PROCESS CAMERA OPERATOR Work Phone: 8(029)150-937720 [place] [address] 12-21-2022 13:08-0400 Respiratory rate 18 /min Ami Hay DRAFTER AUTOMOTIVE DESIGN LAYOUT-PROCESS CAMERA OPERATOR Work Phone: 0(053)010-374920 [place] [address] 12-21-2022 13:08-0400 Systolic blood pressure 115 mm[Hg] Ami Hay DRAFTER AUTOMOTIVE DESIGN LAYOUT-PROCESS CAMERA OPERATOR Work Phone: 1(176)821-453020 [place] [address] 12-14-2022 09:22-0400 Body temperature 97.81 [degF] Ami Hay DRAFTER AUTOMOTIVE DESIGN LAYOUT-PROCESS CAMERA OPERATOR Work Phone: 8(622)195-195[address] [place] [address] 12-14-2022 09:22-0400 Diastolic blood pressure 62 mm[Hg] Ami Hay DRAFTER AUTOMOTIVE DESIGN LAYOUT-PROCESS CAMERA OPERATOR Work Phone: [facility] 12-14-2022 09:22-0400 Heart rate 65 /min Ami Hay DRAFTER AUTOMOTIVE DESIGN LAYOUT-PROCESS CAMERA OPERATOR Work Phone: [facility] 12-14-2022 09:22-0400 Respiratory rate 19 /min Ami Hay DRAFTER AUTOMOTIVE DESIGN LAYOUT-PROCESS CAMERA OPERATOR Work Phone: [facility] 12-14-2022 09:22-0400 Systolic blood pressure 106 mm[Hg] Ami Hay DRAFTER AUTOMOTIVE DESIGN LAYOUT-PROCESS CAMERA OPERATOR Work Phone: [facility] 12-08-2022 09:24-0400 Body height 182.9 cm Nathan Hayden MD Work Phone: [facility] 12-08-2022 09:24-0400 Body mass index (BMI) [Ratio] 31.49 kg/m2 Nathan Hayden MD Work Phone: [facility] 12-08-2022 09:24-0400 Body temperature 97.5 [degF] Nathan Hayden MD Work Phone: [facility] 12-08-2022 09:24-0400 Body weight 105.33 kg Nathan Hayden MD Work Phone: [facility] 12-08-2022 09:24-0400 Diastolic blood pressure 78 mm[Hg] Nathan Hayden MD Work Phone: [facility] 12-08-2022 09:24-0400 Heart rate 78 /min Nathan Hayden MD Work Phone: [facility] 12-08-2022 09:24-0400 Respiratory rate 14 /min Nathan Hayden MD Work Phone: [facility] 12-08-2022 09:24-0400 SaO2% (BldA) [Mass fraction] 97 % [facility]den MD [facility]: [facility] 12-08-2022 09:24-0400 Systolic blood pressure 188 mm[Hg] Nathan Hayden MD Work Phone: [facility] 11-30-2022 13:58-0400 Body temperature 97.5 [degF] [facility] 11-30-2022 13:58-0400 Diastolic blood pressure 75 mm[Hg] Av Sarath Gal Wound Nurse [facility] 11-30-2022 13:58-0400 Heart rate 78 /[facility] 11-30-2022 13:58-0400 Respiratory rate 16 /min [facility] 11-30-2022 13:58-0400 Systolic blood pressure 119 mm[Hg] [facility] 11-25-2022 15:11-0400 Body height 185.4 cm Bridget Dahl MD Work Phone: [facility] 11-25-2022 15:11-0400 Body mass index (BMI) [Ratio] 31.27 kg/m2 Bridget Dahl MD Work Phone: [facility] 11-25-2022 15:11-0400 Body temperature 98.2 [degF] Bridget Dahl MD Work Phone: [facility] 11-25-2022 15:11-0400 Body weight 107.5 kg Bridget Dahl MD Work Phone: [facility] 11-25-2022 15:11-0400 Diastolic blood pressure 59 mm[Hg] Bridget Dahl MD Work Phone: [facility] 11-25-2022 15:11-0400 Heart rate 68 /min Bridget Dahl MD Work Phone: [facility] 11-25-2022 15:11-0400 Respiratory rate 18 /min Bridget Dahl MD Work Phone: [facility] 11-25-2022 15:11-0400 SaO2% (BldA) [Mass fraction] 97 % Bridget Dahl MD Work Phone: [facility] 11-25-2022 15:11-0400 Systolic blood pressure 113 mm[Hg] Bridget Dahl MD Work Phone: [facility] 11-23-2022 13:37-0400 Body temperature 97.3 [degF] Ami Hay DRAFTER AUTOMOTIVE DESIGN LAYOUT-PROCESS CAMERA OPERATOR Work Phone: [facility] 11-23-2022 13:37-0400 Diastolic blood pressure 54 mm[Hg] Ami Hay DRAFTER AUTOMOTIVE DESIGN LAYOUT-PROCESS CAMERA OPERATOR Work Phone: [facility] 11-23-2022 13:37-0400 Heart rate 73 /min Ami Hay DRAFTER AUTOMOTIVE DESIGN LAYOUT-PROCESS CAMERA OPERATOR Work Phone: [facility] 11-23-2022 13:37-0400 Respiratory rate 20 /min Ami Hay DRAFTER AUTOMOTIVE DESIGN LAYOUT-PROCESS CAMERA OPERATOR Work Phone: [facility] 11-23-2022 13:37-0400 Systolic blood pressure 108 mm[Hg] Ami Hay DRAFTER AUTOMOTIVE DESIGN LAYOUT-PROCESS CAMERA OPERATOR Work Phone: [facility] 11-16-2022 08:03-0400 Body temperature 97.11 [degF] Ami Hay DRAFTER AUTOMOTIVE DESIGN LAYOUT-PROCESS CAMERA OPERATOR Work Phone: [employer] [facility] 11-16-2022 08:03-0400 Diastolic blood pressure 67 mm[Hg] Ami Hay DRAFTER AUTOMOTIVE DESIGN LAYOUT-PROCESS CAMERA OPERATOR Work Phone: [employer] [facility] 11-16-2022 08:03-0400 Heart rate 77 /min Ami Hay DRAFTER AUTOMOTIVE DESIGN LAYOUT-PROCESS CAMERA OPERATOR Work Phone: [facility] 11-16-2022 08:03-0400 Respiratory rate 18 /min Ami Hay DRAFTER AUTOMOTIVE DESIGN LAYOUT-PROCESS CAMERA OPERATOR Work Phone: [facility] 11-16-2022 08:03-0400 Systolic blood pressure 110 mm[Hg] Ami Hay DRAFTER AUTOMOTIVE DESIGN LAYOUT-PROCESS CAMERA OPERATOR Work Phone: [facility] 11-03-2022 08:50-0400 Body height 182.9 cm Nathan Hayden MD Work Phone: [facility] 11-03-2022 08:50-0400 Body mass index (BMI) [Ratio] 31.68 kg/m2 Nathan Hayden MD Work Phone: [facility] 11-03-2022 08:50-0400 Body temperature 96.91 [degF] Nathan Hayden MD Work Phone: [facility] 11-03-2022 08:50-0400 Body weight 105.96 kg Nathan Hayden MD Work Phone: [facility] 11-03-2022 08:50-0400 Diastolic blood pressure 78 mm[Hg] Nathan Hayden MD Work Phone: [facility] 11-03-2022 08:50-0400 Heart rate 72 /min Nathan Hayden MD Work Phone: [facility] 11-03-2022 08:50-0400 Respiratory rate 16 /min Nathan Hayedn MD Work Phone: [facility] 11-03-2022 08:50-0400 SaO2% (BldA) [Mass fraction] 98 % Nathan Hayden MD Work Phone: [facility] 11-03-2022 08:50-0400 Systolic blood pressure 122 mm[Hg] Nathan Hayden MD Work Phone: [facility] 10-21-2022 13:54-0500 Diastolic blood pressure 76 mm[Hg] Antony Suarez Jr., DO Work Phone: [facility] 10-21-2022 13:54-0500 Heart rate 70 /min Antony Suarez Jr. DO Work Phone: [facility] 10-21-2022 13:54-0500 Respiratory rate 16 /min Antony Suarez Jr., DO Work Phone: [facility] 10-21-2022 13:54-0500 SaO2% (BldA) [Mass fraction] 100 % Antony Suarez Jr. DO Work Phone: [facility] 10-21-2022 13:54-0500 Systolic blood pressure 123 mm[Hg] Antony Suarez Jr., DO Work Phone: [facility] 10-21-2022 13:44-0500 Body temperature 96.91 [degF] Antony Suarez Jr., DO Work Phone: [facility] 10-21-2022 11:24-0500 Body height 182.9 cm Antony Erick Snow, DO Work Phone: [facility] 10-21-2022 11:24-0500 Body mass index (BMI) [Ratio] 30.38 kg/m2 Antony Suarez Jr., DO Work Phone: [facility] 10-21-2022 11:24-0500 Body weight 101.61 kg Antony Suarez Jr., DO Work Phone: [facility] 09-29-2022 11:03-0500 Body height 182.9 cm Nathan Hayden MD Work Phone: [facility] 09-29-2022 11:03-0500 Body mass index (BMI) [Ratio] 30.41 kg/m2 Nathan Hayden MD Work Phone: [facility] 09-29-2022 11:03-0500 Body temperature 97.2 [degF] Nathan Hayden MD Work Phone: [facility] 09-29-2022 11:03-0500 Body weight 101.7 kg Nathan Hayden MD Work Phone: [facility] 09-29-2022 11:03-0500 Diastolic blood pressure 78 mm[Hg] Nathan Hayden MD Work Phone: [facility] 09-29-2022 11:03-0500 Heart rate 88 /min Nathan Hayden MD Work Phone: [facility] 09-29-2022 11:03-0500 Respiratory rate 16 /min Nathan Hayden MD Work Phone: [facility] 09-29-2022 11:03-0500 SaO2% (BldA) [Mass fraction] 97 % Nathan Hayden MD Work Phone: [facility] 09-29-2022 11:03-0500 Systolic blood pressure 124 mm[Hg] Nathan Hayden MD Work Phone: [facility] 08-26-2022 15:47-0500 Body height 182.9 cm Antony Suarez Jr., DO Work Phone: [facility] 08-26-2022 15:47-0500 Body mass index (BMI) [Ratio] 30.79 kg/m2 Antony Suarez Jr., DO Work Phone: [facility] 08-26-2022 15:47-0500 Body weight 102.97 kg Antony Suarez Jr., DO Work Phone: [facility] 08-25-2022 10:35-0500 Body height 185.4 cm Nathan Hayden MD Work Phone: [facility] 08-25-2022 10:35-0500 Body mass index (BMI) [Ratio] 30.11 kg/m2 Nathan Hayden MD Work Phone: [facility] 08-25-2022 10:35-0500 Body temperature 97.11 [degF] Nathan Hayden MD Work Phone: [facility] 08-25-2022 10:35-0500 Body weight 103.51 kg Nathan Hayden MD Work Phone: [facility] 08-25-2022 10:35-0500 Diastolic blood pressure 72 mm[Hg] Nathan Hayden MD Work Phone: [facility] 08-25-2022 10:35-0500 Heart rate 84 /min Nathan Hayden MD Work Phone: [facility] 08-25-2022 10:35-0500 Respiratory rate 14 /min Nathan Hayden MD Work Phone: [facility] 08-25-2022 10:35-0500 SaO2% (BldA) [Mass fraction] 94 % Nathan Hayden MD Work Phone: [facility] 08-25-2022 10:35-0500 Systolic blood pressure 128 mm[Hg] Nathan Hayden MD Work Phone: [facility] 07-07-2022 11:35-0500 Body height 185.4 cm Nathan Hayden MD Work Phone: [facility] 07-07-2022 11:35-0500 Body mass index (BMI) [Ratio] 31.9 kg/m2 Nathan Hayden MD Work Phone: [facility] 07-07-2022 11:35-0500 Body temperature 100.4 [degF] Nathan Hayden MD Work Phone: [facility] 07-07-2022 11:35-0500 Body weight 109.68 kg Nathan Hayden MD Work Phone: [facility] 07-07-2022 11:35-0500 Diastolic blood pressure 80 mm[Hg] Nathan Hayden MD Work Phone: [facility] 07-07-2022 11:35-0500 Heart rate 91 /min Nathan Hayden MD Work Phone: [facility] 07-07-2022 11:35-0500 Respiratory rate 13 /min Nathan Hayden MD Work Phone: [facility] 07-07-2022 11:35-0500 SaO2% (BldA) [Mass fraction] 96 % Nathan Hayden MD Work Phone: [facility] 07-07-2022 11:35-0500 Systolic blood pressure 130 mm[Hg] Nathan Hayden MD Work Phone: [facility] 06-07-2022 18:27-0400 Body height 182.9 cm Pattie DYSON Work Phone: [facility] 06-07-2022 18:27-0400 Body mass index (BMI) [Ratio] 32.67 kg/m2 Pattie DYSON Work Phone: [facility] 06-07-2022 18:27-0400 Body temperature 98.1 [degF] Pattie Roman DRAFTER AUTOMOTIVE DESIGN LAYOUT-PROCESS CAMERA OPERATOR Work Phone: [facility] 06-07-2022 18:27-0400 Body weight 109.27 kg Pattie Roman DRAFTER AUTOMOTIVE DESIGN LAYOUT-PROCESS CAMERA OPERATOR Work Phone: [facility] 06-07-2022 18:27-0400 Diastolic blood pressure 83 mm[Hg] Pattie Roman DRAFTER AUTOMOTIVE DESIGN LAYOUT-PROCESS CAMERA OPERATOR Work Phone: [facility] 06-07-2022 18:27-0400 Heart rate 74 /min Pattie Roman DRAFTER AUTOMOTIVE DESIGN LAYOUT-PROCESS CAMERA OPERATOR Work Phone: [facility] 06-07-2022 18:27-0400 Respiratory rate 18 /min Pattie Roman DRAFTER AUTOMOTIVE DESIGN LAYOUT-PROCESS CAMERA OPERATOR Work Phone: [facility] 06-07-2022 18:27-0400 SaO2% (BldA) [Mass fraction] 95 % Pattie Roman DRAFTER AUTOMOTIVE DESIGN LAYOUT-PROCESS CAMERA OPERATOR Work Phone: [facility] 06-07-2022 18:27-0400 Systolic blood pressure 145 mm[Hg] Pattie Roman DRAFTER AUTOMOTIVE DESIGN LAYOUT-PROCESS CAMERA OPERATOR Work Phone: [facility] 05-12-2022 18:49-0400 Body height 182.9 cm Ani Worley DRAFTER AUTOMOTIVE DESIGN LAYOUT-PROCESS CAMERA OPERATOR Work Phone: [facility] 05-12-2022 18:49-0400 Body mass index (BMI) [Ratio] 33.91 kg/m2 Ani Thomneftaly DRAFTER AUTOMOTIVE DESIGN LAYOUT-PROCESS CAMERA OPERATOR Work Phone: [facility] 05-12-2022 18:49-0400 Body weight 113.4 kg Ani Thomneftaly DRAFTER AUTOMOTIVE DESIGN LAYOUT-PROCESS CAMERA OPERATOR Work Phone: [facility] 05-12-2022 18:48-0400 Body temperature 98.6 [degF] Ani Meir DRAFTER AUTOMOTIVE DESIGN LAYOUT-PROCESS CAMERA OPERATOR Work Phone: [facility] 05-12-2022 18:48-0400 Diastolic blood pressure 61 mm[Hg] Ani Delany DRAFTER AUTOMOTIVE DESIGN LAYOUT-PROCESS CAMERA OPERATOR Work Phone: [facility] 05-12-2022 18:48-0400 Heart rate 84 /min Ani Worley APRN-PROCESS CAMERA OPERATOR Work Phone: [facility] 05-12-2022 18:48-0400 Respiratory rate 22 /min Ani Worley APRN-PROCESS CAMERA OPERATOR Work Phone: [facility] 05-12-2022 18:48-0400 SaO2% (BldA) [Mass fraction] 94 % Ani Worley APRN-PROCESS CAMERA OPERATOR Work Phone: [facility] 05-12-2022 18:48-0400 Systolic blood pressure 131 mm[Hg] Ani Worley APRN-PROCESS CAMERA OPERATOR Work Phone: [facility] 05-03-2022 18:58-0400 Body height 182.9 cm Zhao Abraham MD Work Phone: [facility] [employer] 05-03-2022 18:58-0400 Body mass index (BMI) [Ratio] 33.23 kg/m2 Zhao Abraham MD Work Phone: [facility] [employer] 05-03-2022 18:58-0400 Body temperature 98.2 [degF] Zhao Abraham MD Work Phone: [facility] [employer] 05-03-2022 18:58-0400 Body weight 111.13 kg Zhao Abraham MD Work Phone: [facility] [employer] 05-03-2022 18:58-0400 Diastolic blood pressure 59 mm[Hg] Zhao Abraham MD Work Phone: [facility] [employer] 05-03-2022 18:58-0400 Heart rate 85 /min Zhao Abraham MD Work Phone: [facility] [employer] 05-03-2022 18:58-0400 Respiratory rate 18 /min Zhao Abraham MD Work Phone: [facility] 05-03-2022 18:58-0400 SaO2% (BldA) [Mass fraction] 98 % Zhao Abraham MD Work Phone: [facility] 05-03-2022 18:58-0400 Systolic blood pressure 113 mm[Hg] Zhao Abraham MD Work Phone: [facility] 04-21-2022 10:58-0400 Body temperature 98.29 [degF] Carolina Solis MD Work Phone: [facility] 04-21-2022 10:58-0400 Diastolic blood pressure 47 mm[Hg] Carolina Solis MD Work Phone: [facility] 04-21-2022 10:58-0400 Heart rate 63 /min Carolina Solis MD Work Phone: [facility] 04-21-2022 10:58-0400 Respiratory rate 16 /min Carolina Solis MD Work Phone: [facility] 04-21-2022 10:58-0400 SaO2% (BldA) [Mass fraction] 92 % Carolina Solis MD Work Phone: [facility] 04-21-2022 10:58-0400 Systolic blood pressure 87 mm[Hg] Carolina Solis MD Work Phone: [facility] 04-20-2022 18:51-0400 Body height 182.9 cm Carolina Solis MD Work Phone: [facility] 04-20-2022 18:51-0400 Body mass index (BMI) [Ratio] 36.66 kg/m2 Carolina Solis MD Work Phone: [facility] 04-20-2022 18:51-0400 Body weight 122.6 kg Carolina Solis MD Work Phone: [facility] 03-07-2022 02:19-0400 Diastolic blood pressure 62 mm[Hg] Nuno Cantor MD Work Phone: [employer] [facility] 03-07-2022 02:19-0400 Heart rate 86 /min Nuno Cantor MD Work Phone: [facility] 03-07-2022 02:19-0400 Respiratory rate 20 /min Nuno Cantor MD Work Phone: [facility] 03-07-2022 02:19-0400 SaO2% (BldA) [Mass fraction] 97 % Nuno Cantor MD Work Phone: [facility] 03-07-2022 02:19-0400 Systolic blood pressure 109 mm[Hg] Nuno Cantor MD Work Phone: [facility] 03-07-2022 00:02-0400 Body height 182.9 cm Nuno Cantor MD Work Phone: [facility] 03-07-2022 00:02-0400 Body mass index (BMI) [Ratio] 33.91 kg/m2 Nuno Cantor MD Work Phone: [facility] 03-07-2022 00:02-0400 Body weight 113.4 kg Nuno Cantor MD Work Phone: [facility] 03-07-2022 00:00-0400 Body temperature 99.39 [degF] Nuno Cantor MD Work Phone: [facility] 11-15-2021 11:52-0400 Body temperature 98.29 [degF] Nuno Cantor MD Work Phone: [facility] 11-15-2021 11:52-0400 Diastolic blood pressure 77 mm[Hg] Nuno Cantor MD Work Phone: [facility] 11-15-2021 11:52-0400 Heart rate 81 /min Nuno Cantor MD Work Phone: [facility] 11-15-2021 11:52-0400 Respiratory rate 22 /min Nuno Cantor MD Work Phone: [facility] 11-15-2021 11:52-0400 SaO2% (BldA) [Mass fraction] 95 % Nuno Cantor MD Work Phone: [facility] 11-15-2021 11:52-0400 Systolic blood pressure 135 mm[Hg] Nuno Cantor MD Work Phone: [facility] 11-15-2021 08:18-0400 Body mass index (BMI) [Ratio] 36.77 kg/m2 Nuno Cantor MD Work Phone: [facility] 11-15-2021 08:18-0400 Body weight 122.97 kg Nuno Cantor MD Work Phone: [facility] 11-13-2021 00:00-0400 Body height 182.9 cm Nuno Cantor MD Work Phone: [employer] [facility] 10-07-2021 12:19-0500 Body mass index (BMI) [Ratio] 40.69 kg/m2 Anidavid Tomasany DRAFTER AUTOMOTIVE DESIGN LAYOUT-PROCESS CAMERA OPERATOR Work Phone: [facility] 10-07-2021 12:19-0500 Body weight 136.08 kg Ani Delany DRAFTER AUTOMOTIVE DESIGN LAYOUT-PROCESS CAMERA OPERATOR Work Phone: [facility] 10-07-2021 12:18-0500 Body temperature 98.71 [degF] Ani Delany DRAFTER AUTOMOTIVE DESIGN LAYOUT-PROCESS CAMERA OPERATOR Work Phone: [facility] 10-07-2021 12:18-0500 Diastolic blood pressure 72 mm[Hg] Ani Delany DRAFTER AUTOMOTIVE DESIGN LAYOUT-PROCESS CAMERA OPERATOR Work Phone: [facility] 10-07-2021 12:18-0500 Heart rate 93 /min Ani Delany DRAFTER AUTOMOTIVE DESIGN LAYOUT-PROCESS CAMERA OPERATOR Work Phone: [facility] 10-07-2021 12:18-0500 Respiratory rate 24 /min Ani Delany DRAFTER AUTOMOTIVE DESIGN LAYOUT-PROCESS CAMERA OPERATOR Work Phone: [facility] 10-07-2021 12:18-0500 SaO2% (BldA) [Mass fraction] 95 % Ani Delany DRAFTER AUTOMOTIVE DESIGN LAYOUT-PROCESS CAMERA OPERATOR Work Phone: [facility] 10-07-2021 12:18-0500 Systolic blood pressure 154 mm[Hg] Anidavid Worley DRAFTER AUTOMOTIVE DESIGN LAYOUT-PROCESS CAMERA OPERATOR Work Phone: [facility] 04-14-2021 13:15-0400 Body height 182.9 cm Felipe Molina DPM Work Phone: [facility] 04-14-2021 13:15-0400 Body mass index (BMI) [Ratio] 35.94 kg/m2 Felipe Molina DPM Work Phone: [facility] 04-14-2021 13:15-0400 Body weight 120.2 kg Felipe Molina DPM Work Phone: [facility] 04-14-2021 13:15-0400 Diastolic blood pressure 74 mm[Hg] Felipe Molina DPM Work Phone: [facility] 04-14-2021 13:15-0400 Heart rate 78 /min Felipe Molina DPM Work Phone: [employer] 04-14-2021 13:15-0400 Systolic blood pressure 122 mm[Hg] Felipe Molina DPM Work Phone: [facility] 04-04-2021 02:18-0400 Body height 182.9 cm Nuno Cantor MD Work Phone: [facility] 04-04-2021 02:17-0400 Body temperature 97.59 [degF] Nuno Cantor MD Work Phone: [facility] 04-04-2021 02:17-0400 Diastolic blood pressure 57 mm[Hg] Nuno Cantor MD Work Phone: [employer] 04-04-2021 02:17-0400 Heart rate 80 /min Nuno Cantor MD Work Phone: [facility] 04-04-2021 02:17-0400 Respiratory rate 18 /min Nuno Cantor MD Work Phone: [facility] 04-04-2021 02:17-0400 SaO2% (BldA) [Mass fraction] 95 % Nuno Cantor MD Work Phone: [facility] 04-04-2021 02:17-0400 Systolic blood pressure 120 mm[Hg] Nuno Cantor MD Work Phone: [facility] 03-30-2021 12:47-0400 Body height 182.9 cm Sofía Devine MD Work Phone: [facility] 03-30-2021 12:47-0400 Body mass index (BMI) [Ratio] 35.94 kg/m2 Sofía Devine MD Work Phone: [facility] 03-30-2021 12:47-0400 Body weight 120.2 kg Sofía Devine MD Work Phone: [facility] 03-30-2021 12:46-0400 Body temperature 97.9 [degF] Sofía Devine MD Work Phone: [facility] 03-30-2021 12:46-0400 Diastolic blood pressure 67 mm[Hg] Sofía Devine MD Work Phone: [facility] 03-30-2021 12:46-0400 Heart rate 82 /min Sofía Devine MD Work Phone: [facility] 03-30-2021 12:46-0400 Respiratory rate 18 /min Sofía Devine MD Work Phone: [facility] 03-30-2021 12:46-0400 SaO2% (BldA) [Mass fraction] 96 % Sofía Devine MD Work Phone: [facility] 03-30-2021 12:46-0400 Systolic blood pressure 129 mm[Hg] Sofía Devine MD Work Phone: [facility] 02-02-2021 17:47-0400 Diastolic blood pressure 36 mm[Hg] Saulo Joseph MD Work Phone: [facility] 02-02-2021 17:47-0400 Heart rate 72 /min Saulo Joseph MD Work Phone: [facility] 02-02-2021 17:47-0400 Systolic blood pressure 104 mm[Hg] Saulo Joseph MD Work Phone: [facility] 02-02-2021 15:37-0400 Body temperature 98.2 [degF] Saulo Joseph MD Work Phone: [facility] 02-02-2021 15:37-0400 Respiratory rate 18 /min Saulo Joseph MD Work Phone: [facility] 02-02-2021 15:37-0400 SaO2% (BldA) [Mass fraction] 97 % Saulo Joseph MD Work Phone: [facility] 02-02-2021 15:36-0400 Body height 182.9 cm Saulo Joseph MD Work Phone: [facility] 02-02-2021 15:36-0400 Body mass index (BMI) [Ratio] 36.62 kg/m2 Saulo Joseph MD Work Phone: [facility] 02-02-2021 15:36-0400 Body weight 122.47 kg Saulo Joseph MD Work Phone: [facility] 01-15-2021 11:58-0400 Body mass index (BMI) [Ratio] 36.89 kg/m2 Diego Gupta MD Work Phone: [employer] Work Phone: 01-15-2021 11:58-0400 Body temperature 97.39 [degF] Diego Gupta MD Work Phone: [employer] Work Phone: 01-15-2021 11:58-0400 Body weight 123.38 kg Diego Gupta MD Work Phone: [employer] Work Phone: 01-15-2021 11:58-0400 Diastolic blood pressure 66 mm[Hg] Diego Gupta MD Work Phone: [employer] Work Phone: 01-15-2021 11:58-0400 Heart rate 66 /min Diego Gupta MD Work Phone: [employer] Work Phone: 01-15-2021 11:58-0400 Respiratory rate 16 /min Diego Gupta MD Work Phone: [employer] Work Phone: 01-15-2021 11:58-0400 SaO2% (BldA) [Mass fraction] 99 % Diego Gupta MD Work Phone: [employer] Work Phone: 01-15-2021 11:58-0400 Systolic blood pressure 107 mm[Hg] Diego Gupat MD Work Phone: [employer] Work Phone: 12-04-2020 13:11-0400 BP Diastolic 64 mm[Hg] [facility] 12-04-2020 13:11-0400 BP Systolic 123 mm[Hg] [facility] 12-04-2020 13:11-0400 Pulse (Heart Rate) 76 /min [facility] 12-04-2020 13:11-0400 Pulse Oximetry 94 % [facility] 12-04-2020 13:11-0400 Respiratory Rate 18 /min [facility] 12-04-2020 07:57-0400 Body Temperature 98.01 [degF] [facility] 12-04-2020 06:00-0400 BMI (Body Mass Index) 38.44 kg/m2 [facility] 12-04-2020 06:00-0400 Body weight 128.[address] [facility] 12-03-2020 11:28-[address] [facility] 11-01-2020 18:00-0500 BP Diastolic 83 mm[Hg] [facility] 11-01-2020 18:00-0500 BP Systolic 133 mm[Hg] [facility] 11-01-2020 18:00-0500 Pulse (Heart Rate) 63 /min Christopher Ng [facility] 11-01-2020 18:00-0500 Pulse Oximetry 97 % Christopher Ng [facility] 11-01-2020 16:00-0500 BMI (Body Mass Index) 36.62 kg/m2 Christophermireille Ng [facility] 11-01-2020 16:00-0500 Body Temperature 98.71 [degF] Christophermireille Ng [facility] 11-01-2020 16:00-0500 Body [facility] 122.47 [facility] 16:00-0500 Height 182.9 [facility]-01-2020 16:00-0500 Respiratory Rate 18 /min Christopher [facility] 09-03-2020 14:09-0500 BMI (Body Mass Index) 38.31 kg/m2 [facility] 09-03-2020 14:09-0500 Body Temperature 95.4 [degF] [facility] 09-03-2020 14:09-0500 Body weight 128.14 kg [facility] 09-03-2020 14:09-0500 BP Diastolic 74 mm[Hg] [facility] 09-03-2020 14:09-0500 BP Systolic 124 mm[Hg] [facility] 09-03-2020 14:09-0500 Height 182.9 cm [facility] 09-03-2020 14:09-0500 Pulse (Heart Rate) 88 /min [facility] 09-03-2020 14:09-0500 Pulse Oximetry 95 % [facility] 09-03-2020 14:09-0500 Respiratory Rate 18 /min [facility] 08-01-2020 09:30-0500 BP [facility] 70 mm[facility] 09:30-0500 BP Systolic 117 mm[Hg] Saulo [facility] 08-01-2020 09:30-0500 Pulse (Heart Rate) 63 /[facility] 09:30-0500 Pulse Oximetry 97 % [facility] 08-01-2020 09:30-0500 Respiratory Rate 16 /min [facility] 08-01-2020 08:03-0500 Respiratory rate 0 /min [facility] 08-01-2020 07:45-0500 BMI (Body Mass Index) 35.94 kg/m2 [facility] 08-01-2020 07:45-0500 Body Temperature 98.1 [degF] [facility] 08-01-2020 07:45-0500 Body weight 120.2 kg [facility] 08-01-2020 07:45-0500 Height 182.9 cm [facility] 07-14-2020 11:11-0500 BMI (Body Mass Index) 41.37 kg/m2 [facility] 07-14-2020 11:11-0500 Body Temperature 97.5 [degF] [facility] 07-14-2020 11:11-0500 Body weight 138.35 kg [facility] 07-14-2020 11:11-0500 BP Diastolic 72 mm[Hg] [facility] 07-14-2020 11:11-0500 BP Systolic 124 mm[Hg] [facility] 07-14-2020 11:11-0500 Height 182.9 cm [facility] 07-14-2020 11:11-0500 Pulse (Heart Rate) 92 /min [facility] 07-14-2020 11:11-0500 Pulse Oximetry 94 % [facility] 07-14-2020 11:11-0500 Respiratory Rate 22 /min [facility] 07-09-2020 20:01-0500 Pulse Oximetry 94 % [facility] 07-09-2020 18:00-0500 BP Diastolic 84 mm[Hg] [facility] 07-09-2020 18:00-0500 BP Systolic 160 mm[Hg] [facility] 07-09-2020 18:00-0500 Pulse (Heart Rate) 61 /min [facility] 07-09-2020 18:00-0500 Respiratory Rate 17 /min [facility] 07-09-2020 11:22-0500 Body Temperature 97.2 [degF] [facility] 07-09-2020 05:48-0500 BMI (Body Mass Index) 41.86 kg/m2 [facility] 07-09-2020 05:48-0500 Body weight 140 kg [facility] 07-08-2020 04:45-0500 Height 182.9 cm [facility] 07-08-2020 02:30-0500 Respiratory rate 16 /min [facility] 07-07-2020 23:46-0500 Respiratory rate 16 /min [facility] 06-30-2020 13:25-0500 BMI (Body Mass Index) 38.92 kg/m2 [facility] 06-30-2020 13:25-0500 Body weight 130.18 kg [facility] 06-30-2020 13:25-0500 BP Diastolic 83 mm[Hg] [facility] 06-30-2020 13:25-0500 BP Systolic 138 mm[Hg] [facility] 06-30-2020 13:25-0500 Height 182.9 cm [facility] 06-30-2020 13:25-0500 Pulse (Heart Rate) 89 /min [facility] 04-22-2020 14:04-0400 BMI (Body Mass Index) 38.92 kg/m2 [facility] 04-22-2020 14:04-0400 Body weight 130.18 kg Sbkendra Andino [facility] 04-22-2020 14:04-0400 BP Diastolic 85 mm[Hg] Sbkendra Andino [facility] 04-22-2020 14:04-0400 BP Systolic 138 mm[Hg] [facility] 04-22-2020 14:04-0400 Height 182.9 cm [facility] 04-22-2020 14:04-0400 Pulse (Heart Rate) 86 /min [facility] 01-18-2020 11:25-0400 Body Temperature 98.29 [degF] Nisa Tavares [facility] 01-18-2020 11:25-0400 BP Diastolic 80 mm[Hg] Nisa Tavares [facility] 01-18-2020 11:25-0400 BP Systolic 138 mm[Hg] Nisa Tavares [facility] 01-18-2020 11:25-0400 Pulse (Heart Rate) 89 /min Nisa Tavares [facility] 05-29-2020 11:25-0400 Pulse Oximetry 96 % Nisa Tavares [facility] 01-18-2020 11:25-0400 Respiratory Rate 20 /min Nisa Tavares [facility] 01-18-2020 10:09-0400 Body Temperature 97.5 [degF] [facility] 01-18-2020 10:09-0400 BP Diastolic 82 mm[Hg] [facility] 01-18-2020 10:09-0400 BP Systolic 142 mm[Hg] [facility] 01-18-2020 10:09-0400 Pulse (Heart Rate) 85 /min [facility] 01-18-2020 10:09-0400 Pulse Oximetry 97 % [facility] 01-17-2020 09:11-0400 Body Temperature 98.8 [degF] [facility] 01-17-2020 09:11-0400 BP Diastolic 68 mm[Hg] [facility] 01-17-2020 09:11-0400 BP Systolic 123 mm[Hg] [facility] 01-17-2020 09:11-0400 Pulse (Heart Rate) 98 /min [facility] 01-17-2020 09:11-0400 Pulse Oximetry 97 % [facility] 01-15-2020 13:03-0400 Body Temperature 98.2 [degF] [facility] 01-15-2020 13:03-0400 BP Diastolic 84 mm[Hg] [facility] 01-15-2020 13:03-0400 BP Systolic 146 mm[Hg] [facility] 01-15-2020 13:03-0400 Pulse (Heart Rate) 74 /min [facility] 01-15-2020 13:03-0400 Pulse Oximetry 97 % [facility] 01-15-2020 13:03-0400 Respiratory Rate 16 /min [facility] 01-13-2020 18:01-0400 Body Temperature 99.3 [degF] Harris Vargas [facility] 01-13-2020 18:01-0400 Pulse (Heart Rate) 90 /min Harriscameron HernándezAlicia [facility] 01-13-2020 18:01-0400 Pulse Oximetry 95 % Harris Vargas [facility] 01-13-2020 18:01-0400 Respiratory Rate 14 /min Harris Vargas [facility] 01-11-2020 11:12-0400 Body Temperature 98.4 [degF] [facility] 01-11-2020 11:12-0400 BP Diastolic 72 mm[Hg] [facility] 01-11-2020 11:12-0400 BP Systolic 126 mm[Hg] [facility] 01-11-2020 11:12-0400 Pulse (Heart Rate) 64 /min [facility] 01-11-2020 11:12-0400 Pulse Oximetry 96 % [facility] 01-11-2020 11:12-0400 Respiratory Rate 18 /min [facility] 01-10-2020 11:32-0400 Body Temperature 98.1 [degF] Leandro Sanchez [facility] 01-10-2020 11:32-0400 BP Diastolic 75 mm[Hg] [facility] 01-10-2020 11:32-0400 BP Systolic 132 mm[Hg] [facility] 01-10-2020 11:32-0400 Pulse (Heart Rate) 75 /min Leandro Sanchez [facility] 01-10-2020 11:32-0400 Pulse Oximetry 97 % Leandro Sanchez [facility] 01-09-2020 10:55-0400 Body Temperature 98.4 [degF] Pinky Brown [facility] 01-09-2020 10:55-0400 BP Diastolic 84 mm[Hg] [facility] 01-09-2020 10:55-0400 BP Systolic 142 mm[Hg] [facility] 01-09-2020 10:55-0400 Pulse (Heart Rate) 88 /min [facility] 01-09-2020 10:55-0400 Pulse Oximetry 98 % [facility] 01-09-2020 10:55-0400 Respiratory Rate 16 /min [facility] 01-08-2020 20:06-0400 Respiratory Rate 20 /min Sofía Dukes [facility] 01-08-2020 16:28-0400 Body Temperature 97.7 [degF] Sofía Dukes [facility] 01-08-2020 16:28-0400 BP Diastolic 76 mm[Hg] Sofía Dukes [facility] 01-08-2020 16:28-0400 BP Systolic 150 mm[Hg] Sofíagilmar Dukes [facility] 01-08-2020 16:28-0400 Pulse (Heart Rate) 70 /min Sofía Dukes [facility] 01-08-2020 16:28-0400 Pulse Oximetry 96 % Sofía Blayne [facility] 01-08-2020 05:54-0400 BMI (Body Mass Index) 38.96 kg/m2 Sofía Blayne [facility] 01-08-2020 05:54-0400 Body weight 130.3 kg Sofíagilmar Dukes [facility] 01-08-2020 05:54-0400 Height 182.9 cm Sofía [facility] 01-04-2020 14:51-0400 BMI (Body Mass Index) 35.26 [...] [facility] 11-06-2019 21:28-0400 Pulse Oximetry 94 % [facility] [place] 11-06-2019 19:17-0400 Body Temperature 97.81 [degF] [facility] [place] 11-06-2019 19:17-0400 BP Diastolic 74 mm[Hg] [facility] [place] 11-06-2019 19:17-0400 BP Systolic 137 mm[Hg] [facility] [place] 11-06-2019 19:17-0400 Pulse (Heart Rate) 81 /min [place] Ch[facility] [place] 11-06-2019 19:17-0400 Respiratory Rate 20 /min [place] 11-06-2019 05:36-0400 BMI (Body Mass Index) 38.41 kg/m2 [facility] [place] 11-06-2019 05:36-0400 Body weight 128.46 kg [place] 11-06-2019 05:36-0400 Height 182.9 cm [place] 10-30-2019 14:43-0400 BMI (Body Mass Index) 41.15 kg/m2 [facility] 10-30-2019 14:43-0400 Body weight 137.62 kg [facility] 10-30-2019 14:43-0400 BP Diastolic 70 mm[Hg] [facility] 10-30-2019 14:43-0400 BP Systolic 112 mm[Hg] [facility] 10-30-2019 14:43-0400 Height 182.9 cm [facility] 10-30-2019 14:43-0400 Pulse (Heart Rate) 85 /min [facility] 10-30-2019 14:43-0400 Pulse Oximetry 96 % [facility] 10-30-2019 14:43-0400 Respiratory Rate 16 /min [facility] 04-05-2019 05:32-0400 BP Diastolic 80 mm[Hg] [facility] 04-05-2019 05:32-0400 BP Systolic 130 mm[Hg] [facility] 04-05-2019 05:32-0400 Pulse (Heart Rate) 58 /min [facility] 04-05-2019 05:32-0400 Pulse Oximetry 97 % [facility] 04-05-2019 05:32-0400 Respiratory Rate 22 /min [facility] 04-03-2019 10:38-0400 BP Diastolic 55 mm[Hg] [facility] 04-03-2019 10:38-0400 BP Systolic 140 mm[Hg] [facility] 04-03-2019 10:38-0400 Pulse (Heart Rate) 65 /min [facility] 04-03-2019 10:38-0400 Pulse Oximetry 99 % [facility] 04-03-2019 10:38-0400 Respiratory Rate 18 /min [place] [facility] 04-03-2019 08:00-0400 Body Temperature 98.49 [degF] [facility] 11-06-2018 11:16-0400 BMI (Body Mass Index) 39.77 kg/m2 [facility] 11-06-2018 11:16-0400 Body Temperature 98.2 [degF] [facility] 11-06-2018 11:16-0400 BP Diastolic 68 mm[Hg] [facility] 11-06-2018 11:16-0400 BP Systolic 124 mm[Hg] [facility] 11-06-2018 11:16-0400 Height 182.9 cm [facility] 11-06-2018 11:16-0400 Pulse (Heart Rate) 84 /min [facility] 11-06-2018 11:16-0400 Pulse Oximetry 97 % [facility] 11-06-2018 11:16-0400 Respiratory Rate 16 /min [facility] 11-06-2018 11:16-0400 Weight 133 kg [facility] 10-06-2018 08:50-0500 BMI (Body Mass Index) 37.97 kg/m2 [facility] 10-06-2018 08:50-0500 BP Diastolic 65 mm[Hg] [facility] 10-06-2018 08:50-0500 BP Systolic 111 mm[Hg] [facility] 10-06-2018 08:50-0500 Height 182.9 cm S[facility] 10-06-2018 08:50-0500 Pulse (Heart Rate) 63 /min [facility] 10-06-2018 08:50-0500 Weight 127.01 kg S[facility] 09-15-2018 11:19-0500 BMI (Body Mass Index) 37.97 kg/m2 [facility] 09-15-2018 11:19-0500 BP Diastolic 82 mm[Hg] [facility] 09-15-2018 11:19-0500 BP Systolic 138 mm[Hg] [facility] 09-15-2018 11:19-0500 Height 182.9 cm Sb Andino [facility] 09-15-2018 11:19-0500 Pulse (Heart Rate) 80 /min Sb Andino [facility] 09-15-2018 11:19-0500 Weight 127.01 kg Sb Andino [facility] 07-31-2018 10:31-0500 BMI (Body Mass Index) 37.97 kg/m2 [facility] 07-31-2018 10:31-0500 Body Temperature 97.9 [degF] [facility] 07-31-2018 10:31-0500 Height 182.9 cm [facility] 07-31-2018 10:31-0500 Pulse (Heart Rate) 80 /min [facility] 07-31-2018 10:31-0500 Pulse Oximetry 94 % [facility] 07-31-2018 10:31-0500 Weight 127.01 kg [facility] 03-31-2018 10:13-0400 BMI (Body Mass Index) 38.79 kg/m2 [facility] 03-31-2018 10:13-0400 BP Diastolic 84 mm[Hg] Sb Andino [facility] 03-31-2018 10:13-0400 BP Systolic 128 mm[Hg] Sb Andino [facility] 03-31-2018 10:13-0400 Height 182.9 cm [facility] 03-31-2018 10:13-0400 Pulse (Heart Rate) 71 /min Sb Andino [facility] 03-31-2018 10:13-0400 Weight 129.73 kg [facility] 03-07-2018 14:16-0400 BMI (Body Mass Index) 37.89 kg/m2 [facility] 03-07-2018 14:16-0400 BP Diastolic 77 mm[Hg] [facility] 03-07-2018 14:16-0400 BP Systolic 127 mm[Hg] [facility] 03-07-2018 14:16-0400 Pulse (Heart Rate) 106 /min [facility] 03-07-2018 14:16-0400 Weight 126.73 kg [facility] Encounters Encounter Date Encounter Type Care Provider Facility Start: 07-01-2025 ambulatory ANI [facility] Start: 06-30-2025 [facility] Start: 06-28-2025 End: 06-28-2025 Refill Merry Barba LPN [facility] Comment on above: Abscess of knee, rig ht (Primary Dx); History of total right knee replacement Start: 06-21-2025 End: 06-21-2025 Admission to same day surgery center Sofía Dukes MD Work Phone: [facility] Comment on above: Abscess of knee, rig ht (Primary Dx); History of total right knee replacement Start: 06-20-2025 End: 06-20-2025 Postop follow up visit related to original px Sofía Dukes MD Work Phone: [facility] Comment on above: Abscess of knee, rig ht (Primary Dx) Start: 06-20-2025 End: 06-20-2025 ambulatory ANI [facility] Start: 05-30-2025 End: 05-30-2025 Postop follow up visit related to original px Sofía Dukes MD Work Phone: [facility] Comment on above: Abscess of knee, rig ht (Primary Dx) Start: 05-30-2025 End: 05-30-2025 ambulatory [facility] Start: 05-17-2025 ambulatory JACKSON AVITIA [facility] Start: 05-11-2025 End: 05-16-2025 Evaluation and management of inpatient Rosaline Araceli Arreaga DO Work Phone: [facility] Start: 05-09-2025 End: 05-09-2025 Office outpatient new 30 minutes Daniel Hammer MD Work Phone: [facility] Comment on above: Effusion of right kn ee (Primary Dx); Synovitis; Abscess of knee, right; History of total right knee replacement Start: 05-09-2025 End: 05-09-2025 Orders Only Merry Barba LPN [facility] Comment on above: Effusion of right kn ee (Primary Dx); Synovitis; Abscess of knee, right; History of total right knee replacement Start: 04-29-2025 End: 04-29-2025 Transcribe Orders Ani Worley CNP Work Phone: 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, unspecified laterality, unspecified ulceration site (HCC) (Primary Dx) Start: 04-02-2025 End: 04-05-2025 ambulatory [facility] Start: 04-02-2025 End: 04-05-2025 Evaluation and management of inpatient Maury Felipe Garcia DO Work Phone: [facility] Start: 02-15-2025 End: 02-15-2025 Evaluation and management of inpatient [facility] Start: 02-11-2025 End: 02-21-2025 Evaluation and management of inpatient [facility] Start: 01-04-2025 End: 01-04-2025 Office outpatient visit 15 minutes Cecilia Gonzales DPM Work Phone: [facility] Comment on above: Edema of both lower extremities [R60.0] (Primary Dx) Start: 01-04-2025 End: 01-04-2025 ambulatory [facility] Start: 01-02-2025 End: 01-02-2025 Office outpatient new 45 minutes Ani Worley PROCESS CAMERA OPERATOR Work Phone: [facility] Comment on above: Venous congestion (P rimary Dx); Edema of both lower extremities; Pulmonary hypertension (HCC); Skin ulcer of left lower leg, limited to breakdown of skin (HCC); Obesity (BMI 30-39.9) Start: 01-02-2025 End: 01-02-2025 ambulatory ANI WORLEY [facility] Start: 12-25-2024 End: 12-25-2024 Transcribe Orders Ani Worley PROCESS CAMERA OPERATOR Work Phone: [facility] Comment on above: PVD (peripheral vasc ular disease) (Primary Dx) Start: 12-24-2024 End: 12-24-2024 Documentation procedure Margot Gallegos RN [facility] Start: 12-21-2024 End: 12-21-2024 Office outpatient visit 15 minutes Cecilia Sabry Janet DPM Work Phone: [facility] Comment on above: Skin ulcer of planta r aspect of right foot with necrosis of muscle (HCC) (Primary Dx) Start: 12-21-2024 End: 12-21-2024 ambulatory [facility] Start: 12-20-2024 End: 12-20-2024 Transcribe Orders Ani Worley PROCESS CAMERA OPERATOR Work Phone: [facility] Comment on above: Disease of vein (Griselda gunderson Dx) Start: 11-23-2024 End: 11-23-2024 ambulatory [facility] Start: 11-23-2024 End: 11-23-2024 Office outpatient visit 15 minutes Cecilia Sabry Janet DPM Work Phone: [facility] Comment on above: Skin ulcer of right lower leg with fat layer exposed (HCC) (Primary Dx); Skin ulcer of left lower leg with fat layer exposed (HCC); Skin ulcer of plantar aspect of right foot with necrosis of muscle (HCC) Start: 11-16-2024 End: 11-16-2024 ambulatory [facility] Start: 11-09-2024 End: 11-09-2024 ambulatory [facility] Start: 10-31-2024 End: 10-31-2024 Transcribe Orders Ani Worley PROCESS CAMERA OPERATOR Work Phone: [facility] Comment on above: Muscle weakness (Griselda gunderson Dx) Start: 10-18-2024 End: 10-18-2024 Orders Only Shahrzad Hodges RN [facility] Comment on above: Compression fracture of T7 vertebra, initial encounter (HCC) (Primary Dx) Start: 10-15-2024 Critical care ill/in jured patient init 30-74 min Jose Lozano MD Work Phone: [facility] Start: 10-15-2024 End: 10-24-2024 Evaluation and management of inpatient Jose Lozano MD Work Phone: [facility] Start: 07-05-2024 ambulatory TAWANDA MORGAN [facility] Start: 07-02-2024 End: 07-05-2024 Evaluation and management of inpatient Jose Lozano MD Work Phone: [facility] Start: 04-27-2024 ambulatory [facility] Start: 04-09-2024 ambulatory [facility] Start: 03-02-2024 ambulatory [facility] Start: 01-17-2024 End: 01-17-2024 Office outpatient visit 25 minutes ALEXEY Radford DPM Work Phone: [facility] Comment on above: Midfoot collapse of right lower extremity (Primary Dx); Pes planus of both feet; Type 2 diabetes mellitus without complication, without long-term current use of insulin (HCC); Peripheral vascular disease (HCC); Arthritis of midfoot, unspecified laterality; Chronic venous hypertension, unspecified laterality Start: 12-22-2023 Transcribe Orders Clint Acuna [facility] Comment on above: Cellulitis, unspecif ied cellulitis site (Primary Dx) Encounter for screen ing colonoscopy (Primary Dx) Start: 10-10-2023 End: 06-18-2024 Evaluation and management of inpatient Reg Hartman [facility] Start: 09-19-2023 End: 09-19-2023 Emergency department patient visit FEL[facility] Start: 09-18-2023 End: 09-18-2023 [facility] Start: 09-09-2023 End: 09-09-2023 Postop follow up visit related to original px Cecilia Gonzales DPM Work Phone: [facility] Comment on above: Chronic ulcer of rig ht leg with fat layer exposed (HCC) (Primary Dx) Start: 09-02-2023 End: 09-02-2023 Postop follow up visit related to original px Cecilia Gonzales DPM Work Phone: [facility] Comment on above: Chronic ulcer of rig ht leg with fat layer exposed (HCC) (Primary Dx) Start: 08-26-2023 End: 08-26-2023 Postop follow up visit related to original px Cecilia Donna Gonzales DPM Work Phone: [facility] Comment on above: Chronic ulcer of rig ht leg with fat layer exposed (HCC) (Primary Dx) Start: 08-19-2023 End: 08-19-2023 Patient encounter procedure Cecilia Gonzales DPM Work Phone: [facility] Comment on above: Chronic ulcer of lef t leg with fat layer exposed (HCC) (Primary Dx); 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) Start: 07-29-2023 End: 08-11-2023 Evaluation and management of inpatient Kash Majano MD Work Phone: [facility] Start: 07-29-2023 End: 07-29-2023 Office outpatient visit 25 minutes Cecilia Gonzales DPM Work Phone: [facility] Comment on above: Abscess of right kne e (Primary Dx); Skin ulcer of right knee with fat layer exposed (HCC); Wound of right leg, subsequent encounter; Ulcer of left lower extremity with fat layer exposed (HCC) Start: 07-19-2023 Documentation procedure Daria dumas LPN [facility] Start: 07-15-2023 End: 07-15-2023 Office outpatient visit 15 minutes Cecilia Gonzales DPM Work Phone: [facility] Comment on above: Ulcer of left lower extremity with fat layer exposed (HCC) (Primary Dx); Wound of right leg, subsequent encounter Start: 07-08-2023 End: 07-08-2023 Patient encounter procedure Cecilia Gonzales DPM Work Phone: [facility] Comment on above: Ulcer of left lower extremity with fat layer exposed (HCC) (Primary Dx); Wound of right leg, subsequent encounter Start: 07-01-2023 End: 07-01-2023 Office outpatient visit 15 minutes Cecilia Gonzales DPM Work Phone: [facility] Comment on above: Ulcer of left lower extremity with fat layer exposed (HCC) (Primary Dx); Wound of right leg, subsequent encounter Start: 06-17-2023 End: 06-17-2023 Postop follow up visit related to original px [facility] Work Phone: [facility] Comment on above: Leg hematoma, right, sequela (Primary Dx); Leg hematoma, right, initial encounter; Ulcer of left lower extremity with fat layer exposed (HCC) Start: 06-11-2023 Documentation procedure Nathan Collins MD Work Phone: [facility] Comment on above: Admission H&P Start: 05-30-2023 End: 05-31-2023 Emergency department patient visit [facility] Start: 05-24-2023 Documentation procedure Nathan Collins MD Work Phone: [facility] Comment on above: Admission H&P Start: 05-17-2023 End: 05-17-2023 Emergency department patient visit [facility] Start: 05-02-2023 ambulatory [facility] Start: 04-26-2023 ambulatory [facility] Start: 04-26-2023 End: 04-26-2023 Clinical Support Encounter Nathan Hayden MD Work Phone: [facility] Comment on above: Pressure ulcer of ri ght foot, stage 3 (Primary Dx); Venous stasis ulcer of right lower leg with edema of right lower leg; Lymphedema; Chronic venous insufficiency; Venous stasis ulcer of left lower leg with edema of left lower leg Start: 04-18-2023 [facility] [facility] Start: 04-18-2023 Encounter for genera l adult medical examination without abnormal findings NATHAN HAYDEN [facility] Start: 04-18-2023 End: 04-18-2023 Office outpatient visit 15 minutes Nathan Hayden MD Work Phone: [facility] Infectious Disease Comment on above: Pancytopenia (Primar y Dx); Chronic hepatitis C without hepatic coma; Wound of right lower extremity, subsequent encounter; Left leg cellulitis; Alcoholic cirrhosis, unspecified whether ascites present; Obesity (BMI 30-39.9); Healthcare maintenance; Hepatitis B core antibody positive; Housing instability Start: 04-18-2023 End: 04-18-2023 Patient encounter status Nathan Hayden MD Work Phone: [facility] Start: 04-12-2023 ambulatory [facility] Start: 04-07-2023 [facility] Start: 04-07-2023 End: 04-07-2023 Office outpatient visit 15 minutes Nathan Hayden MD Work Phone: [facility] Infectious Disease Comment on above: Left leg cellulitis (Primary Dx); Close exposure to COVID-19 virus; Chronic hepatitis C without hepatic coma; Wound of right lower extremity, subsequent encounter; Pancytopenia; Alcoholic cirrhosis, unspecified whether ascites present; Healthcare maintenance; Obesity (BMI 30-39.9) Start: 04-07-2023 End: 04-07-2023 Patient encounter status Nathan Hayden MD Work Phone: [facility] Start: 03-31-2023 [facility] Start: 03-31-2023 End: 03-31-2023 Office outpatient visit 25 minutes Nathan Hayden MD Work Phone: [facility] Disease Comment on above: Wound of right lower extremity, subsequent encounter (Primary Dx); Chronic hepatitis C without hepatic coma; Pancytopenia; MSSA (methicillin susceptible Staphylococcus aureus) infection; Alcoholic cirrhosis, unspecified whether ascites present; Left leg cellulitis Start: 03-23-2023 Documentation procedure Nathan Collins MD Work Phone: [facility] Comment on above: H&P Admission Start: 03-17-2023 End: 03-22-2023 Evaluation and management of inpatient [facility] Start: 03-16-2023 End: 03-22-2023 Evaluation and management of inpatient Power Nelson MD Work Phone: [facility] Comment on above: Bilateral cellulitis of lower leg Start: 03-16-2023 End: 03-16-2023 Emergency department patient visit Shai Leonard MD Work Phone: [facility] Emergency Department Start: 03-11-2023 ambulatory ANI [facility] Start: 03-01-2023 ambulatory [facility] Start: 02-27-2023 End: 03-03-2023 Evaluation and management of inpatient [facility] Start: 02-26-2023 End: 02-27-2023 Evaluation and management of inpatient Shai Leonard MD Work Phone: [facility] Emergency Department Comment on above: Cellulitis and absce ss of left lower extremity Start: 02-21-2023 ambulatory ANI [facility] Start: 02-15-2023 ambulatory [place] AYALA [facility] Start: 02-15-2023 ambulatory ANIDAVID WORLEY [facility] Start: 02-15-2023 End: 02-15-2023 Office outpatient visit 25 minutes Nj Ayala DRAFTER AUTOMOTIVE DESIGN LAYOUT-PROCESS CAMERA OPERATOR Work Phone: [facility] W[facility] Comment on above: Venous stasis ulcer of right lower leg with edema of right lower leg (Primary Dx); Pressure ulcer of right foot, stage 3; Chronic venous insufficiency; Lymphedema Start: 02-08-2023 [facility] Start: 02-08-2023 End: 02-08-2023 Office outpatient new 45 minutes Kristi Bryan DPM Work Phone: [facility] Podiatry Comment on above: Mass of right foot ( Primary Dx); Bursitis of right foot; Subluxation of foot joint, right, initial encounter Start: 02-08-2023 ambulatory [facility] Start: 02-08-2023 ambulatory [facility] Start: 02-08-2023 End: 02-08-2023 Office outpatient visit 25 minutes jN Ayala DRAFTER AUTOMOTIVE DESIGN LAYOUT-PROCESS CAMERA OPERATOR Work Phone: [facility] Comment on above: Venous stasis ulcer of right lower leg with edema of right lower leg (Primary Dx); Chronic venous insufficiency; Lymphedema; Pressure ulcer of right foot, stage 3; Foot mass, right Start: 02-01-2023 ambulatory [facility] Start: 01-26-2023 End: 01-26-2023 Office outpatient visit 15 minutes Nathan Hayden MD Work Phone: [facility] Disease Comment on above: Chronic hepatitis C without hepatic coma (Primary Dx); Hepatitis B core antibody positive; Pancytopenia; Healthcare maintenance; Cirrhosis of liver without ascites, unspecified hepatic cirrhosis type; Alcoholic cirrhosis, unspecified whether ascites present; Hand weakness; Wound of right lower extremity, subsequent encounter Start: 01-26-2023 End: 01-26-2023 Patient encounter status Nathan Hayden MD Work Phone: [facility] Infectious Disease Start: 01-25-2023 ambulatory [facility] Start: 01-25-2023 End: 01-25-2023 Office outpatient visit 25 minutes Nj Ayala DRAFTER AUTOMOTIVE DESIGN LAYOUT-PROCESS CAMERA OPERATOR Work Phone: [facility] Comment on above: Venous stasis ulcer of right lower leg with edema of right lower leg (Primary Dx); Chronic venous insufficiency; Lymphedema; Foot mass, right Start: 01-25-2023 ambulatory [facility] Sheryl AYALA [facility] Start: 01-18-2023 ambulatory [facility] Start: 01-18-2023 End: 01-18-2023 Office outpatient visit 25 minutes Nj Ayala DRAFTER AUTOMOTIVE DESIGN LAYOUT-PROCESS CAMERA OPERATOR Work Phone: [facility] Comment on above: Venous stasis ulcer of right lower leg with edema of right lower leg (Primary Dx); Chronic venous insufficiency; Lymphedema Start: 01-11-2023 ambulatory [facility] Start: 01-11-2023 ambulatory [place] Jensen [facility] Start: 01-04-2023 ambulatory [facility] Start: 12-28-2022 ambulatory [facility] Start: 12-28-2022 End: 12-28-2022 Office outpatient visit 25 minutes Ami Sheryl Hay DRAFTER AUTOMOTIVE DESIGN LAYOUT-PROCESS CAMERA OPERATOR Work Phone: [facility] Comment on above: Venous stasis ulcer of right lower leg with edema of right lower leg (Primary Dx); Chronic venous insufficiency; Lymphedema; Fungal dermatitis Start: 12-21-2022 ambulatory [facility] Start: 12-21-2022 End: 12-21-2022 Office outpatient visit 25 minutes Ami Sheryl Ayala DRAFTER AUTOMOTIVE DESIGN LAYOUT-PROCESS CAMERA OPERATOR Work Phone: [facility] Comment on above: Venous stasis ulcer of right lower leg with edema of right lower leg (Primary Dx); Chronic venous insufficiency; Lymphedema Start: 12-14-2022 ambulatory [facility] Start: 12-14-2022 ambulatory [place] Jensen [facility] Start: 12-14-2022 End: 12-14-2022 Office outpatient visit 25 minutes Ami Sheryl Ayala DRAFTER AUTOMOTIVE DESIGN LAYOUT-PROCESS CAMERA OPERATOR Work Phone: [facility] Comment on above: Venous stasis ulcer of right lower leg with edema of right lower leg (Primary Dx); Chronic venous insufficiency; Lymphedema Start: 12-08-2022 End: 12-08-2022 Subsequent hospital visit by physician Nathan Hayden MD Work Phone: [facility] CT Scan Comment on above: Arrived Start: 12-08-2022 End: 12-08-2022 Office outpatient visit 25 minutes Nathan Hayden MD Work Phone: [facility] Infectious Disease Comment on above: Chronic hepatitis C without hepatic coma (Primary Dx); Hepatitis B core antibody positive; Pancytopenia; Cirrhosis of liver without ascites, unspecified hepatic cirrhosis type; Healthcare maintenance; Obesity (BMI 30-39.9) Start: 12-08-2022 End: 12-08-2022 Patient encounter status Nathan Hayden MD Work Phone: [facility] Start: 12-07-2022 ambulatory [facility]AVID [facility] Start: 11-30-2022 ambulatory [facility]AVID [facility] Start: 11-30-2022 End: 11-30-2022 Clinical Support Encounter Nj Ayala DRAFTER AUTOMOTIVE DESIGN LAYOUT-PROCESS CAMERA OPERATOR Work Phone: [facility] Comment on above: Venous stasis ulcer of right lower leg with edema of right lower leg (Primary Dx); Chronic venous insufficiency Start: 11-29-2022 ambulatory ANI [facility] Start: 11-25-2022 ambulatory ANI [facility] Start: 11-25-2022 End: 11-25-2022 Office outpatient new 45 minutes Bridget Dahl MD Work Phone: [facility] Comment on above: Pancytopenia (Primar y Dx); Thrombocytopenia; Leukopenia, unspecified type; Microcytic hypochromic anemia; Chronic hepatitis C without hepatic coma; 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; Hepatosplenomegaly Start: 11-23-2022 ambulatory [facility] Start: 11-23-2022 End: 11-23-2022 Office outpatient visit 25 minutes Nj Ayala DRAFTER AUTOMOTIVE DESIGN LAYOUT-PROCESS CAMERA OPERATOR Work Phone: [facility] Comment on above: Venous stasis ulcer of right lower leg with edema of right lower leg (Primary Dx); Chronic venous insufficiency; Lymphedema Start: 11-16-2022 ambulatory [facility]IDAVID [facility] Start: 11-16-2022 End: 11-16-2022 Office outpatient visit 25 minutes Nj Ayala DRAFTER AUTOMOTIVE DESIGN LAYOUT-PROCESS CAMERA OPERATOR Work Phone: [facility] Comment on above: Venous stasis ulcer of right lower leg with edema of right lower leg (Primary Dx); Chronic venous insufficiency; Lymphedema Start: 11-11-2022 ambulatory [facility]ID [facility] Start: 11-09-2022 ambulatory [facility]AVID [facility] Start: 11-03-2022 End: 11-03-2022 Office outpatient visit 25 minutes Nathan Hayden MD Work Phone: [facility] Infectious [facility] Comment on above: Wound of right lower extremity, subsequent encounter (Primary Dx); Chronic hepatitis C without hepatic coma; Hepatitis B core antibody positive; Pancytopenia; Obesity (BMI 30-39.9); Healthcare maintenance; Cirrhosis of liver without ascites, unspecified hepatic cirrhosis type Start: 11-03-2022 End: 11-03-2022 Patient encounter status Nathan Hayden MD Work Phone: [facility] Infectious Disease Start: 10-21-2022 End: 10-21-2022 Subsequent hospital visit by physician Antony Suarez DO Work Phone: [facility] Start: 09-29-2022 End: 09-29-2022 Office outpatient visit 25 minutes Nathan Hayden MD Work Phone: [facility] Comment on above: Chronic hepatitis C without hepatic coma (Primary Dx); Hepatitis B core antibody positive; Pancytopenia; Healthcare maintenance; Obesity (BMI 30-39.9); Cirrhosis of liver without ascites, unspecified hepatic cirrhosis type; Wound of right lower extremity, subsequent encounter Start: 09-29-2022 End: 09-29-2022 Patient encounter status Nathan Hayden MD Work Phone: [facility] Infectious [facility] Start: 08-26-2022 End: 08-26-2022 Office outpatient new 45 minutes Antony Suarez DO Work Phone: [facility] Gastroenterology Comment on above: Cirrhosis of liver w ithout ascites, unspecified hepatic cirrhosis type (Primary Dx); Chronic hepatitis C without hepatic coma Start: 08-25-2022 End: 08-25-2022 Office outpatient visit 25 minutes Nathan Hayden MD Work Phone: [facility] Comment on above: Chronic hepatitis C without hepatic coma (Primary Dx); Hepatitis B core antibody positive; Healthcare maintenance; Alcoholic cirrhosis, unspecified whether ascites present; Pancytopenia; Obesity (BMI 30-39.9) Start: 08-25-2022 End: 08-25-2022 Patient encounter status Nathan Hayden MD Work Phone: [facility] Infectious Disease Start: 07-07-2022 End: 07-07-2022 Office outpatient visit 15 minutes Nathan Hayden MD Work Phone: [facility] Infectious Disease Comment on above: Chronic hepatitis C without hepatic coma (Primary Dx); Hepatitis B core antibody positive; Healthcare maintenance; Obesity (BMI 30-39.9); Pancytopenia; Alcoholic cirrhosis, unspecified whether ascites present Start: 07-07-2022 End: 07-07-2022 Patient encounter status Nathan Hayden MD Work Phone: [facility] Infectious Disease Start: 06-07-2022 End: 06-07-2022 Office outpatient visit 15 minutes Pattie Roman DRAFTER AUTOMOTIVE DESIGN LAYOUT-PROCESS CAMERA OPERATOR Work Phone: [facility] Comment on above: Referral of patient (Primary Dx); Chronic viral hepatitis B without delta agent and 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; Chronic hepatitis C without hepatic coma Start: 05-12-2022 End: 05-12-2022 Emergency department patient visit Ani Meir DRAFTER AUTOMOTIVE DESIGN LAYOUT-PROCESS CAMERA OPERATOR Work Phone: [facility] Emergency Department Start: 05-03-2022 End: 05-03-2022 Emergency department patient visit [facility] Start: 05-03-2022 End: 05-03-2022 Emergency department patient visit Zhao Abraham MD Work Phone: [facility] ED Comment on above: Ulcer of right foot, unspecified ulcer stage (HCC) (Primary Dx); Lymphedema of both lower extremities Start: 04-20-2022 End: 04-21-2022 Evaluation and management of inpatient Carolina Solis MD Work Phone: [facility] Start: 03-06-2022 End: 03-07-2022 Emergency department patient visit Nuno Cantor MD Work Phone: [facility] Emergency Department Start: 11-12-2021 End: 11-15-2021 Evaluation and management of inpatient Nuno Cantor MD Work Phone: [facility] ICU Comment on above: Hypotension Start: 10-07-2021 End: 10-07-2021 Emergency department patient visit Ani Worley DRAFTER AUTOMOTIVE DESIGN LAYOUT-PROCESS CAMERA OPERATOR Work Phone: [facility] Emergency Department Start: 06-03-2021 End: 06-04-2021 Evaluation and management of inpatient BLANCA PINEDA MATEO [facility] Start: 04-14-2021 End: 04-14-2021 Office outpatient new 45 minutes Felipe Molina DPM Work Phone: [facility] Podiatry Comment on above: Acquired varus defor mity of left foot (Primary Dx); Hallux rigidus, acquired, left; Fracture of second toe, left, open, with malunion, subsequent encounter Start: 04-04-2021 End: 04-04-2021 Emergency department patient visit Nuno Cantor MD Work Phone: [facility] Emergency Department Start: 03-30-2021 End: 03-30-2021 Emergency department patient visit Sofía Devine MD Work Phone: [facility] Emergency Department Start: 02-02-2021 End: 02-02-2021 Emergency department patient visit Saulo Joseph MD Work Phone: [facility] Emergency Department Start: 01-15-2021 End: 01-15-2021 Emergency department patient visit DIEGO GUPTA [facility] Start: 01-15-2021 End: 01-15-2021 Emergency department patient visit Diego Gupta MD Work Phone: [facility] ED Start: 12-03-2020 End: 12-04-2020 Evaluation and management of inpatient Maury Garcia Work Phone: [facility] Start: 11-01-2020 End: 11-01-2020 Emergency department patient visit Christopher Ng Work Phone: [facility] Emergency Department Start: 10-29-2020 End: 10-29-2020 Orders Only Mona Jung Work Phone: [facility] Start: 09-03-2020 End: 09-03-2020 Office outpatient visit 25 minutes Palmer Givens Work Phone: [facility] Comment on above: Pancytopenia (Primar y Dx); Atrial fibrillation, unspecified type; Essential hypertension; Chronic obstructive pulmonary disease, unspecified COPD type; Chronic pain syndrome Start: 08-01-2020 End: 08-01-2020 Emergency department patient visit Saulo Joseph Work Phone: [facility] Emergency Department Comment on above: Suspected COVID-19 v irus infection (Primary Dx); Asthma with acute exacerbation, unspecified asthma severity, unspecified whether persistent; Morbid obesity (HCC); H/O CHF; Paroxysmal atrial fibrillation (HCC); Medication refill Start: 07-28-2020 End: 07-28-2020 Documentation procedure Judith Cruz [facility] Start: 07-14-2020 End: 07-14-2020 Office outpatient visit 15 minutes Palmer Givens Work Phone: [facility] Comment on above: Chronic obstructive pulmonary disease with acute exacerbation (Primary Dx); Acute respiratory failure, unspecified whether with hypoxia or hypercapnia; Atrial fibrillation, unspecified type; Essential hypertension; Anemia, unspecified type; Thrombocytopenia; Elevated troponin; Elevated brain natriuretic peptide (BNP) level; Marijuana use Start: 07-11-2020 End: 07-11-2020 Documentation procedure Carina Green Work Phone: [facility] Start: 07-08-2020 End: 07-09-2020 Evaluation and management of inpatient VENANCIO QUIROS [facility] Start: 07-07-2020 End: 07-09-2020 Evaluation and management of inpatient Marisolreynaldo Vernon Jhon Work Phone: [facility] Comment on above: Acute respiratory fa ilure, unspecified whether with hypoxia or hypercapnia (HCC) (Primary Dx); COPD exacerbation (HCC); Cannabis abuse; Acute exacerbation of chronic obstructive pulmonary disease (COPD) (HCC) Start: 06-30-2020 End: 06-30-2020 Office outpatient visit 15 minutes Sb Zena Exten Work Phone: [facility] Comment on above: Acquired pes planova lgus of right foot (Primary Dx); Arthritis of right foot Start: 04-22-2020 End: 04-22-2020 Subsequent hospital visit by physician Sb Andino Work Phone: [facility] Comment on above: Pain Start: 04-22-2020 End: 04-22-2020 Office outpatient visit 15 minutes Sbkendra Andino Work Phone: [facility] Comment on above: Toe dislocation, lef t, subsequent encounter (Primary Dx); Arthritis of first metatarsophalangeal (MTP) joint of left foot; Acquired pes planovalgus of right foot; Arthritis of right foot Start: 01-30-2020 End: 01-30-2020 Emergency department patient visit Radames Galvin Work Phone: [facility] Emergency Department Start: 01-25-2020 End: 01-25-2020 Home visit Jignesh Gilbert [facility] Comment on above: PT OASIS DISCHARGE SN HH NON-OASIS/DISC IPLINE DC Start: 01-24-2020 End: 01-24-2020 Home visit Jignesh Gilbert [facility] Comment on above: PT NON-OASIS/DISCIPL INE DISCHARGE Start: 01-23-2020 End: 01-23-2020 Postop follow up visit related to original px Sofía March Blayne Work Phone: [facility] Comment on above: Status post total ri ght knee replacement (Primary Dx); Primary osteoarthritis of right knee Start: 01-22-2020 End: 01-22-2020 Documentation procedure Daria Dumont [facility] Start: 01-22-2020 End: 01-22-2020 Home visit Rosaline Barba [facility] Comment on above: APPLIANCE COUNSELOR HH MISSED VISIT Start: 01-18-2020 End: 01-18-2020 Home visit Leandro Sanchez [facility] Comment on above: FARM EQUIPMENT ENGINEER ROUTINE VISIT SN HH ROUTINE VISIT Start: 01-17-2020 End: 01-17-2020 Home visit Leandro Sanchez [facility] Comment on above: FARM EQUIPMENT ENGINEER ROUTINE VISIT Start: 01-16-2020 End: 01-16-2020 Documentation procedure Merry Barba [facility] Start: 01-15-2020 End: 01-15-2020 Documentation procedure Daria Dumont [facility] Start: 01-15-2020 End: 01-15-2020 Home visit Pinky Brown [facility] Comment on above: SN HH ROUTINE VISIT FARM EQUIPMENT ENGINEER MISSED VISIT Start: 01-14-2020 End: 01-14-2020 Home visit Rosaline Barba [facility] Comment on above: TELEPHONE ENCOUNTER Start: 01-13-2020 End: 01-13-2020 Home visit Harris Vargas [facility] Comment on above: SN HH PRN VISIT Start: 01-11-2020 End: 01-11-2020 Documentation procedure Daria Dumont [facility] Start: 01-11-2020 End: 01-11-2020 Home visit Jessenia Peñacullen [facility] Comment on above: APPLIANCE COUNSELOR HH ROUTINE Start: 01-10-2020 End: 01-10-2020 Home visit Leandro Sandar Sanchez [facility] Comment on above: FARM EQUIPMENT ENGINEER ROUTINE VISIT Start: 01-09-2020 End: 01-09-2020 Home visit Jignesh Gilbert [facility] Comment on above: PT INITIAL EVALUATIO N SN HH OASIS START OF CARE Start: 01-08-2020 End: 01-08-2020 Admission to [facility] Start: 01-08-2020 End: 01-25-2020 Patient encounter procedure SOFÍA DUKES [facility] Start: 01-08-2020 End: 01-08-2020 Subsequent hospital visit by physician Sofía Dukes Work Phone: [facility] Comment on above: S/P total knee arthr oplasty, right (Primary Dx); Primary osteoarthritis of right knee; Primary osteoarthritis of right knee Start: 01-04-2020 End: 01-04-2020 Office outpatient new 60 minutes Sofía Dukes Work Phone: [facility] Comment on above: Essential hypertensi on (Primary Dx); Primary osteoarthritis of right knee Start: 01-03-2020 End: 01-03-2020 Subsequent hospital visit by physician Sofía Dukes Work Phone: [facility] CT Scan Comment on above: Primary osteoarthrit is of right knee Start: 11-06-2019 End: 11-07-2019 [facility] management [facility] Start: 11-06-2019 End: 11-07-2019 Evaluation and management of inpatient Anya Burton Chon Work Phone: [facility] Comment on above: Pneumonia of left lo wer lobe due to infectious organism (HCC) (Primary Dx); Influenza A; COPD exacerbation (HCC) Start: 10-30-2019 End: 10-30-2019 Office outpatient visit 15 minutes Palmer Givens Work Phone: [facility] Comment on above: Essential hypertensi on (Primary Dx); SOB (shortness of breath) on exertion; Leg edema Start: 10-26-2019 End: 10-26-2019 Patient encounter procedure Lena Hill Work Phone: [facility] Comment on above: Tricompartment osteo arthritis of right knee Start: 09-21-2019 End: 09-21-2019 Office outpatient visit 15 minutes Lena Hill Work Phone: [facility] [place] Comment on above: Tricompartment osteo arthritis of right knee (Primary Dx) Start: 05-28-2019 End: 05-28-2019 Telephone encounter Palmer Givens Work Phone: [facility] Comment on above: Medication Managemen t Start: 05-26-2019 End: 05-26-2019 Refill Palmer Givens Work Phone: [facility] Start: 04-30-2019 End: 04-30-2019 Telephone encounter Palmer Givens Work Phone: [facility] Comment on above: Medication Managemen t Start: 04-27-2019 End: 04-27-2019 Refill Palmer Givens Work Phone: [facility] Start: 04-05-2019 End: 04-05-2019 Emergency department patient visit Bjorn Sin Work Phone: [facility] Emergency Department Start: 04-03-2019 End: 04-03-2019 Emergency department patient visit Kinsey Ignacio Work Phone: [facility] Comment on above: Acute exacerbation o f chronic obstructive pulmonary disease (COPD) (HCC) (Primary Dx) Start: 03-06-2019 End: 03-06-2019 Outside Orders Historical Provider [facility] Start: 03-04-2019 End: 03-04-2019 Emergency department patient visit [facility] Start: 03-01-2019 End: 03-01-2019 Outside Orders Prashanth Armenta Work Phone: [facility] Start: 02-19-2019 End: 02-19-2019 Telephone encounter Palmer Givens Work Phone: [facility] Comment on above: Medication Managemen t Start: 02-07-2019 End: 02-07-2019 Telephone encounter Palmer Givens Work Phone: [facility] Comment on above: Medication Managemen t Start: 02-03-2019 Emergency department patient visit [facility] Start: 11-24-2018 End: 11-24-2018 Telephone encounter Palmer Givens Work Phone: [facility] Comment on above: Medication Managemen t Start: 11-06-2018 End: 11-06-2018 Office outpatient visit 15 minutes Palmer Givens Work Phone: [facility] Comment on above: Chronic obstructive pulmonary disease, unspecified COPD type (Primary Dx) Start: 10-06-2018 End: 10-06-2018 Patient encounter procedure Sb Andino Work Phone: [facility] Start: 10-06-2018 End: 10-06-2018 Office outpatient visit 15 minutes Sb Andino Work Phone: [facility] Comment on above: Toe dislocation, lef t, subsequent encounter (Primary Dx); Arthritis of first metatarsophalangeal (MTP) joint of left foot; Acquired pes planovalgus of right foot; Arthritis of right foot Start: 10-05-2018 End: 10-05-2018 Documentation procedure Monica Rachel JeffJimmy [facility] Start: 09-15-2018 End: 09-15-2018 Office outpatient visit 15 minutes Sbkendra Wheatleyrachel Andino Work Phone: [facility] Comment on above: Toe dislocation, lef t, subsequent encounter (Primary Dx); Arthritis of first metatarsophalangeal (MTP) joint of left foot Start: 08-01-2018 End: 08-01-2018 Patient encounter procedure Monica Condon [facility] Start: 07-31-2018 End: 07-31-2018 Patient encounter procedure Rashaadliz Alford Liriano Work Phone: [facility] Comment on above: Knee pain Start: 07-31-2018 End: 07-31-2018 Office outpatient new 20 minutes Rashaad Alford Liriano Work Phone: [facility] Comment on above: Toe dislocation, lef t, subsequent encounter; Osteoarthritis of right knee, unspecified osteoarthritis type; Acquired pes planovalgus of right foot Start: 07-20-2018 Patient encounter procedure Sb Andino Facility:[facility] Start: 07-20-2018 End: 07-20-2018 Patient encounter procedure Sb Zenarachel Andino Work Phone: [facility] Start: 07-10-2018 End: 07-10-2018 Patient encounter Monica Rachel Taurus [facility] Start: 06-03-2018 Patient encounter procedure Memo Brar Facility:[place] Start: 06-03-2018 End: 06-03-2018 Patient encounter Memo Brar Work Phone: [facility] Start: 05-31-2018 Patient encounter procedure Sb Andino Facility:[facility] Start: 05-15-2018 Patient encounter procedure Sb Andino Facility:[facility] [place] Start: 05-15-2018 End: 05-15-2018 Patient encounter Sb Andino Work Phone: [facility] Start: 05-12-2018 Patient encounter procedure Memo Brar Facility:[facility] [place] Start: 05-12-2018 End: 05-12-2018 Patient encounter Memo Mathur Maykel Work Phone: [facility] Start: 05-06-2018 Patient encounter procedure Memo Ramos Maykel Facility:[facility] Start: 05-06-2018 End: 05-06-2018 Patient encounter Memo Mathur Brar Work Phone: [facility] Start: 04-20-2018 Patient encounter procedure Sb Luther Exten Facility:[facility] Start: 04-20-2018 End: 04-20-2018 Patient encounter Sb Andino Work Phone: [facility] Start: 04-13-2018 Patient encounter procedure Sb Luther Exten Facility:[facility] Start: 04-08-2018 Patient encounter procedure Memo Rachel Maykel Facility:[facility] Start: 04-08-2018 End: 04-08-2018 Patient encounter Memo Mathur Maykel Work Phone: [facility] Start: 04-04-2018 Patient encounter Monica Mcdonough [facility] Start: 03-31-2018 Patient encounter procedure Sb Luther Exten Facility:[facility] [place] Start: 03-31-2018 End: 03-31-2018 Patient encounter Sb Freitas Exten Work Phone: [facility] Start: 03-31-2018 End: 03-31-2018 Office consultation new/estab patient 40 min Paulino Rodrigues Work Phone: [facility] Start: 03-11-2018 Patient encounter procedure Memo Brar Facility:[facility] Start: 03-08-2018 Patient encounter procedure Paulino Rodrigues Facility:[facility] Start: 03-07-2018 Patient encounter procedure Paulino Rodrigues Facility:[facility] Start: 03-07-2018 End: 03-07-2018 Patient encounter Paulino Rodrigues Work Phone: [facility] Start: 03-07-2018 End: 03-07-2018 Office outpatient new 30 minutes Palmer Givens Work Phone: [facility] Start: 02-11-2018 Patient encounter procedure Memo Brar Facility:[facility] [place] Start: 02-11-2018 End: 02-11-2018 Ambulatory Memo Brar Work Phone: [facility] Start: 01-14-2018 Patient encounter procedure Memo Brar Facility:[facility] [place] Start: 01-14-2018 End: 01-14-2018 Ambulatory Memo Brar Work Phone: [facility] Start: 12-30-2017 Patient encounter procedure Memo Brar Facility:[facility] [place] Start: 12-30-2017 End: 12-30-2017 Ambulatory Memo Brar Work Phone: [facility] Start: 08-06-2017 End: 08-06-2017 Emergency department patient visit Riaz Lopez Facility:[facility] Start: 05-05-2017 End: 05-05-2017 Ambulatory Coleen BrionesFrancesca Neal Work Phone: [facility] Procedures Date Procedure Procedure Detail Performing Clinician Start: 05-16-2025 Glucose measurement Carmen Charles MD Work Phone: Start: 05-16-2025 Glucose measurement Generic [facility] Work Phone: Start: 05-16-2025 Basic metabolic panel calcium total Dee Deborah Deyvi PROCESS CAMERA OPERATOR Work Phone: Start: 05-15-2025 Glucose measurement Generic [facility] Work Phone: Start: 05-15-2025 Glucose measurement Generic [facility] Work Phone: Start: 05-15-2025 Glucose measurement Generic [facility] Work Phone: Start: 05-15-2025 Glucose measurement Generic [facility] Work Phone: Start: 05-15-2025 Basic metabolic panel calcium total Dee Deborah Boydymour PROCESS CAMERA OPERATOR Work Phone: Start: 05-15-2025 Drug screen quantitative vancomycin Sorin Simons RPh,PharmD Start: 05-14-2025 Glucose measurement [facility] Work Phone: Start: 05-14-2025 Glucose measurement Generic [facility] Work Phone: Start: 05-14-2025 Glucose measurement Generic [facility] Work Phone: Start: 05-14-2025 Glucose measurement Generic [facility] Work Phone: Start: 05-14-2025 Basic metabolic panel calcium total Dee Carnes PROCESS CAMERA OPERATOR Work Phone: Start: 05-13-2025 Glucose measurement Generic [...] Basic metabolic panel calcium total Dee Carnes PROCESS CAMERA OPERATOR Work Phone: Start: 05-13-2025 Drug screen quantitative vancomycin Olivia Caicedo PROCESS CAMERA OPERATOR Work Phone: Start: 05-12-2025 Glucose measurement Generic [facility] Work Phone: Start: 05-12-2025 Glucose measurement Generic [facility] Work Phone: Start: 05-12-2025 Drug tst prsmv instrmnt chem analyzers pr date Dee Carnes PROCESS CAMERA OPERATOR Work Phone: Start: 05-12-2025 Iadna s aureus methicillin resist amp probe tq Dee Carnes PROCESS CAMERA OPERATOR Work Phone: Start: 05-12-2025 Glucose measurement Generic [facility] Work Phone: Start: 05-12-2025 Glucose measurement Generic [facility] Work Phone: Start: 05-12-2025 Basic metabolic panel calcium total Dee Carnes PROCESS CAMERA OPERATOR Work Phone: Start: 05-12-2025 Complete blood count with white cell differential, manual Dee Carnes PROCESS CAMERA OPERATOR Work Phone: Start: 05-12-2025 Cul bact xcpt [...] Basic metabolic panel calcium total Kj Cox PROCESS CAMERA OPERATOR Work Phone: Start: 04-04-2025 Complete blood count with white cell differential, manual Kj Cox PROCESS CAMERA OPERATOR Work Phone: Start: 04-04-2025 Gases blood ph direct edilam xcpt pulse oximitry Kanchan Jacobs MD Work [...] 04-02-2025 Red blood cell morphology Maury barlow [place] DO Work Phone: Start: 04-02-2025 Sedimentation rate rbc automated Maury Ojeda Radha DO Work Phone: Start: 04-02-2025 EMS RUN SHEET Generic Ems Provider Start: 12-21-2024 Debridement subcutaneous tissue 20 sq cm/< Cecilia Sabry Janet DPM Work Phone: Start: 11-23-2024 Appl mltlayr grant leg below knee w/ankle foot Cecilia Sabry Henagar DPM Work Phone: Start: 10-24-2024 Blood count [...] Phone: Start: 10-20-2024 Red blood cell morphology Blacna Kerns MD Work Phone: Start: 10-19-2024 Blood count complete auto&auto difrntl wbc Blanca Kerns MD Work Phone: Start: 10-19-2024 Red blood cell morphology Blanca Kerns MD Work Phone: Start: 10-18-2024 Cul bact xcpt urine blood/stool aerobic isol Quyen Franco PROCESS CAMERA OPERATOR Work Phone: Start: 10-18-2024 Blood count complete auto&auto difrntl wbc Blanca Kerns MD Work Phone: Start: 10-18-2024 C-reactive protein Quyen Franco PROCESS CAMERA OPERATOR Work Phone: Start: 10-17-2024 Radex spine thoracic 2 views Antonietta Eagle fierro PA-C Work Phone: Start: 10-17-2024 Non-invas physiologic std extremity art 2 level Quyen Franco PROCESS CAMERA OPERATOR Work Phone: Start: 10-17-2024 Mri lower extrem oth/thn jt w/o contr matrl Quyen Franco PROCESS CAMERA OPERATOR Work Phone: Start: 10-17-2024 Hemoglobin glycosylated a1c Quyen Do mka PROCESS CAMERA OPERATOR Work Phone: Start: 10-16-2024 Mri spinal canal thoracic w/o contrast matrl Branden Cummings PROCESS CAMERA OPERATOR Work Phone: Start: 10-16-2024 Basic metabolic panel calcium total Jumana Fink PROCESS CAMERA OPERATOR Work Phone: Start: 10-15-2024 25 hydroxy includes fractions if performed Jumana Fink PROCESS CAMERA OPERATOR Work Phone: Start: 10-15-2024 Electrocardiogram Jose Lozano [...] Work Phone: Start: 07-03-2024 Glucose measurement Generic [facility] Work Phone: Start: 07-02-2024 Radiologic examination [...] Work Phone: Start: 08-11-2023 Glucose measurement Christian nazaroi MD Work Phone: Start: 08-11-2023 Glucose measurement [...] Basic metabolic panel calcium total Carina Eller PROCESS CAMERA OPERATOR Work Phone: Start: 07-30-2023 Glucose measurement Generic [...] Start: 07-29-2023 Assay of lactate Uyen Gunn PROCESS CAMERA OPERATOR Work Phone: Start: 07-29-2023 Ct lower extremity w/contrast material Uyen Casiano PROCESS CAMERA OPERATOR Work Phone: Start: 07-29-2023 Basic metabolic panel calcium total Uyen Casiano PROCESS CAMERA OPERATOR Work Phone: Start: 07-29-2023 C-reactive protein Uyen miller PROCESS CAMERA OPERATOR Work Phone: Start: 07-29-2023 Culture bacterial blood aerobic w/id isolates Uyen Casiano PROCESS CAMERA OPERATOR Work Phone: Start: 07-29-2023 Debridement subcutaneous tissue 20 sq cm/< Cecilia Sabry Henagar DPM Work Phone: Start: 07-29-2023 Cul bact xcpt urine blood/stool aerobic isol Cecilia Sabry Janet DPM Work Phone: Start: 07-15-2023 Debridement subcutaneous tissue 20 sq cm/< Cecilia Sabry Henagar DPM Work Phone: Start: 07-15-2023 Cul bact xcpt urine blood/stool aerobic isol Cecilia Sabry Henagar DPM Work Phone: Start: 07-08-2023 Debridement subcutaneous tissue 20 sq cm/< Cecilia Sabry Henagar DPM Work Phone: Start: 07-01-2023 Debridement subcutaneous tissue 20 sq cm/< Cecilia Sabry Janet DPM Work Phone: Start: 06-07-2023 Adult depression screening assessment Quyen Franco PROCESS CAMERA OPERATOR Work Phone: Start: 03-22-2023 Complete blood count [...] bacterial blood aerobic w/id isolates Isabel Tang PROCESS CAMERA OPERATOR Work Phone: Start: 03-17-2023 Prothrombin time Isabel [...] Dup-scan xtr veins complete bilateral study Tyshawn Franlkin PA-C Work Phone: Start: 03-16-2023 Radiologic exam chest single view Tyshawn Franklin PA-C Work Phone: Start: 03-16-2023 Complete blood count with white cell differential, automated Tyshawn Franklin PA-C Work Phone: Start: 03-16-2023 Comprehensive metabolic panel Tyshawn edmondson PA-C Work Phone: Start: 02-26-2023 Complete blood count with white cell differential, automated Nuno Dumont DRAFTER AUTOMOTIVE DESIGN LAYOUT-PROCESS CAMERA OPERATOR Work Phone: Start: 02-26-2023 Comprehensive metabolic panel Nuno mcmillan DRAFTER AUTOMOTIVE DESIGN LAYOUT-PROCESS CAMERA OPERATOR Work Phone: Start: 01-18-2023 Debridement open wound 20 sq cm/< Ami L Hay DRAFTER AUTOMOTIVE DESIGN LAYOUT-PROCESS CAMERA OPERATOR Work Phone: Start: 12-28-2022 Whit skn sub grft t/a/l area/100sq cm /<1st 25 Ami L Hay DRAFTER AUTOMOTIVE DESIGN LAYOUT-PROCESS CAMERA OPERATOR Work Phone: Start: 12-28-2022 DE PURAPLY 1 SQ CM PERFORMABLE Ami L Hay DRAFTER AUTOMOTIVE DESIGN LAYOUT-PROCESS CAMERA OPERATOR Work Phone: Start: 12-21-2022 Whit skn sub grft t/a/l area/100sq cm /<1st 25 Ami L Hay DRAFTER AUTOMOTIVE DESIGN LAYOUT-PROCESS CAMERA OPERATOR Work Phone: Start: 12-21-2022 DE PURAPLY 1 SQ CM PERFORMABLE Ami L Hay DRAFTER AUTOMOTIVE DESIGN LAYOUT-PROCESS CAMERA OPERATOR Work Phone: Start: 12-08-2022 Ct head/brain w/o contrast material Nathan Hayden MD Work Phone: Start: 10-21-2022 DIAGNOSTIC UPPER ENDOSCOPY Antony Cantu ich DO Work Phone: Start: 04-21-2022 Dup-scan xtr veins complete bilateral study Moncho Joaquin MD Work Phone: Start: 04-21-2022 C-reactive protein Quyen Sammy PROCESS CAMERA OPERATOR Work Phone: Start: 04-21-2022 Red blood cell [...] Phone: Start: 11-15-2021 B12/folate level Paul Osman DRAFTER AUTOMOTIVE DESIGN LAYOUT-PROCESS CAMERA OPERATOR Work Phone: Start: 11-15-2021 Complete blood count with white cell differential, automated Evens Mann PA-C Work Phone: Start: 11-15-2021 Renal function panel Evens Mann PA-C Work Phone: Start: 11-14-2021 Fibrinogen activity Paulino Moeller O Work Phone: Start: 11-14-2021 Radex foot complete minimum 3 views Paul Osman DRAFTER AUTOMOTIVE DESIGN LAYOUT-PROCESS CAMERA OPERATOR Work Phone: Start: 11-14-2021 Ct angiography chest w/contrast/noncontrast Paul Osman DRAFTER AUTOMOTIVE DESIGN LAYOUT-PROCESS CAMERA OPERATOR Work Phone: Start: 11-14-2021 C-reactive protein Paul Osman DRAFTER AUTOMOTIVE DESIGN LAYOUT-PROCESS CAMERA OPERATOR Work Phone: Start: 11-14-2021 Iaad ia hepatitis b surface antigen Evens Mann PA-C Work Phone: Start: 11-14-2021 Renal function panel Evens Mann PA-C Work Phone: Start: 11-13-2021 Dup-scan xtr veins complete bilateral study Evens Mann PA-C Work Phone: Start: 11-13-2021 Creatine kinase total [place] Johnathan PA- C Work Phone: Start: 11-13-2021 Rheumatoid factor qualitative [place] French macario PA-C Work Phone: Start: 11-13-2021 Comprehensive metabolic panel Nuno mott MD Work Phone: Start: 11-12-2021 Cultyp nuc acid amp prb cult/isolate ea orgnism Nnuo Cantor MD Work Phone: Start: 11-12-2021 Ct [...] Work Phone: Start: 12-03-2020 Blood count hematocrit [facility] Start: 12-03-2020 Radiologic exam [...] Start: 08-01-2020 Radiologic exam chest single view [facility] Work Phone: Start: 08-01-2020 Gases blood ph [...] 07-08-2020 Bacteria identified in Blood by Culture Kinesy Ignacio Work Phone: Start: 07-08-2020 Complete blood count (hemogram) panel - Blood by Automated count Venancio Quiros Work Phone: Start: 07-08-2020 D-dimer assay, quantitative Venancio Marcial Work Phone: Start: 07-08-2020 Magnesium [Mass/volume] in Serum or Plasma Venancio Harrisonasap Work Phone: Start: 07-08-2020 Troponin measurement Venancio Harrisonas ap Work Phone: Start: 07-08-2020 Radiography of urgmav-gtiqbl-foumodd Venancio Quiros Work Phone: Start: 07-08-2020 Ethanol [...] RSV Vaccines (1 - 1-dose 75+ series) [facility] Start: 02-26-2033 Tetanus vaccination [facility] Start: 02-26-2033 Vaccination for diphtheria, pertussis, and tetanus Tetanus/Diphtheria/Pertus sis (3 - Td or Tdap) [facility] Start: 05-16-2026 eGFR Diabetes eGFR Diabetes [facility] Start: 04-05-2026 eGFR Diabetes eGFR Diabetes [facility] Start: 10-22-2025 Urine screening for protein eGFR Diabetes [facility] Start: 10-16-2025 Urine screening for protein eGFR Diabetes [facility] Start: 08-13-2025 Hemoglobin A1c measurement A1C [facility] Start: 07-01-2025 End: 07-01-2025 Admission to same day surgery center 07/01/2025 2:31 PM EST - 07/01/2025 5:10 PM EST Surgery [facility] [address] [place] [address] Sofía Dukes MD [address] [place] [address] Resection arthroplasty with antibiotic spacer right knee [facility] Comment on above: Resection arthroplasty with antibiotic s pacer right knee Start: 07-01-2025 End: 07-01-2025 Rmvl prosth tot knee prosth mma w/wo insj spacer ARTHROTOMY KNEE WITH SPACER INSERTION Abscess of knee, right History of total right knee replacement 07/01/2025 2:31 PM EST [facility] Start: 07-01-2025 Subsequent hospital visit by physician [facility] Start: 06-13-2025 End: 06-13-2025 Follow-up encounter 06/13/2025 4:00 PM EDT Follow-Up [facility] [address] [place] [address] Sofía Dukes MD [address] [place] [address] [facility] Start: 05-09-2025 End: 05-09-2025 Patient encounter procedure 05/09/2025 2:00 PM EDT Office Visit [facility] [address] [place] [address] Daniel Hammer MD [address] [address] [facility] Start: 04-22-2025 COVID-19 Vaccine ( season) COVID-19 Vaccine ( season) [facility] Start: 04-22-2025 COVID-19 Vaccine ( season) COVID-19 Vaccine ( season) [facility] Start: 04-22-2025 Influenza vaccination [facility] Start: 04-16-2025 Hemoglobin A1c measurement A1C [facility] Start: 01-18-2025 End: 01-18-2025 Patient encounter procedure 01/18/2025 1:30 PM EDT Office Visit [facility] [address] [place] [phone] Cecilia Gonzales, DPM [address] [place] [address] Discharge Disposition: Home [facility] Start: 01-04-2025 End: 01-04-2025 Patient encounter procedure 01/04/2025 2:00 PM EDT Office Visit [facility] [address] [place] [phone] Cecilia Gonzales, DPM [address] [place] [address] Discharge Disposition: Home [facility] Start: 01-02-2025 End: 01-02-2025 Patient encounter procedure 01/02/2025 2:20 PM EDT Office Visit [facility] [address] [place] [address], 3rd [place] [address] Ani Worley, [address] [address] Luis Daniel Cao III, [address] [place] [address] [facility] Start: 12-28-2024 End: 12-28-2024 Patient encounter procedure 12/28/2024 1:30 PM EDT Office Visit [facility] [address] [place] [phone] Cecilia Gonzales, DPM [address] [place] [address] Discharge Disposition: [facility] Start: 12-21-2024 End: 12-21-2024 Patient encounter procedure 12/21/2024 1:15 PM EDT Office Visit [facility] [address] [place] [phone] Cecilia Gonzales, DPM [address] [place] [address] Discharge Disposition: [facility] Start: 11-30-2024 End: 11-30-2024 Patient encounter procedure 11/30/2024 11:00 AM EDT Office Visit [facility] [address] [place] [phone] Cecilia Gonzales, DPM [address] [place] [address] Discharge Disposition: [facility] Start: 11-15-2024 End: 11-15-2024 Patient encounter procedure 11/15/2024 10:30 AM EDT Office Visit [facility] [address] [place] [phone] Sofía Garcia PA-C [address] [place] [address] [facility] Start: 11-09-2024 End: 11-09-2024 Patient encounter procedure 11/09/2024 1:15 PM EDT Office Visit [facility] [address] [place] [address] Cecilia Gonzales, DPM [address] [place] [address] Discharge Disposition: [facility] Start: 10-26-2024 End: 10-26-2024 Patient encounter procedure 10/26/2024 1:30 PM EST Office Visit [facility] [address] [place] [address] Cecilia Gonzales DPM [address] [place] [address] Discharge Disposition: Home [facility] Start: 08-10-2024 Screening for malignant neoplasm of colon [facility] Start: 06-07-2024 Depression screening using PHQ-9 (Patient Health Questionnaire 9) score [facility] Start: 04-22-2024 COVID-19 Vaccine () COVID-19 Vaccine () [facility] Start: 04-22-2024 Influenza vaccination [facility] Start: 03-22-2024 Potassium [Moles/volume] in Serum or Plasma POTASSIUM [facility] Start: 01-29-2024 Hemoglobin A1c measurement A1C [facility] Start: 01-11-2024 Hemoglobin A1c measurement A1C [facility] Start: 01-09-2024 End: 01-09-2024 Patient encounter procedure 01/09/2024 2:15 PM EDT Office Visit [facility] [address] [place] [address] Jenise Gerardo DO [address] [place] [address] [facility] Start: 11-30-2023 Hemoglobin A1c measurement A1C [facility] Start: 09-09-2023 End: 09-09-2023 Patient encounter procedure 09/09/2023 2:15 PM EST Office Visit [facility] [address] [place] [phone] Cecilia Gonzales DPM [address] [place] [address] Discharge Disposition: [facility] Start: 09-02-2023 End: 09-02-2023 Patient encounter procedure 09/02/2023 2:15 PM EST Office Visit [facility] [address] [place] [address] Cecilia Gonzales, DPM [address] [place] [address] Discharge Disposition: Home [facility] Start: 08-30-2023 Hemoglobin A1c measurement A1C [facility] Start: 08-26-2023 End: 08-26-2023 Patient encounter procedure 08/26/2023 1:15 PM EST Office Visit [facility] [address] [place] [address] Cecilia Gonzales, DPM [address] [place] [address] Discharge Disposition: Home [facility] Start: 08-19-2023 End: 08-19-2023 [facility] Start: 07-22-2023 End: 07-22-2023 Patient encounter procedure 07/22/2023 11:00 AM EST Office Visit [facility] [address] [facility] [address] [place] [address] Cecilia Gonzales, DPM [address] [place] [address] Discharge Disposition: Home [facility] Start: 07-15-2023 End: 07-15-2023 Patient encounter procedure 07/15/2023 7:30 AM EST Office Visit [facility] [address] [place] [address] Cecilia Gonzales, DPM [address] [place] [address] Discharge Disposition: [facility] Start: 07-08-2023 End: 07-08-2023 Patient encounter procedure 07/08/2023 1:30 PM EST Office Visit [facility] [address] [place] [address] Cecilia Gonzales, DPM [address] [place] [address] Discharge Disposition: [facility] Start: 06-24-2023 End: 06-24-2023 Patient encounter procedure 06/24/2023 8:45 AM EDT Office Visit [facility] [address] [place] [address] Cecilia Gonzales, DPM [address] [place] [address] Discharge Disposition: [facility] Start: 06-03-2023 End: 06-03-2023 Patient encounter procedure 06/03/2023 9:00 AM EDT Office Visit [facility] [address] [place] [address] Quyen Franco, PROCESS CAMERA OPERATOR [address] [place] [address] Discharge Disposition: [facility] Start: 05-02-2023 End: 05-02-2023 Patient encounter procedure [facility] Start: 04-26-2023 End: 04-26-2023 Clinical Support Encounter 04/26/2023 11:00 AM EDT Clinical Support Encounter [facility] [address] [place] [address] [facility] Start: 04-22-2023 COVID-19 Vaccine ( season) COVID-19 Vaccine ( season) [facility] Start: 04-22-2023 Influenza vaccination [facility] Start: 04-18-2023 End: 04-18-2023 Patient encounter procedure [facility] Start: 04-12-2023 End: 04-12-2023 Patient encounter procedure [facility] Start: 04-07-2023 End: 04-07-2024 Complete blood count with white cell differential, automated CBC, EDIF, PLATELET Lab Routine Left leg cellulitis Expected: 04/07/2023, Expires: 04/07/2024 [facility] Comment on above: Expected: 04/07/2023, Expires: Start: 04-07-2023 End: 04-07-2024 Comprehensive metabolic 2000 panel - Serum or Plasma COMPREHENSIVE METABOLIC PANEL Lab Routine Left leg cellulitis Expected: 04/07/2023, Expires: 04/07/2024 [facility] Comment on above: Expected: 04/07/2023, Expires: Start: 04-07-2023 End: 04-07-2023 Patient encounter procedure 04/07/2023 10:00 AM EDT Office Visit [facility] [address] [place] [address] Nathan Hayden MD [address] [place] [address] [facility] Start: 03-31-2023 End: 03-31-2024 Bacterial culture and sensitivity [facility] Comment on above: Expected: 03/31/2023, Expires: Start: 03-31-2023 End: 03-31-2024 SCREEN: MRSA ONLY, NARES (ISOLATION SCREEN) [facility] Comment on above: Expected: 03/31/2023, Expires: Start: 03-23-2023 End: 03-23-2023 Patient encounter procedure 03/23/2023 11:45 AM EDT Office Visit [facility] Infect[facility] [address] [place] [address] Nathan Hayden MD [address] [place] [address] [facility] Start: 03-01-2023 End: 03-01-2023 Patient encounter procedure 03/01/2023 1:15 PM EDT Office Visit [facility] [address] [place] [address] jN Ayala, DRAFTER AUTOMOTIVE DESIGN LAYOUT-PROCESS CAMERA OPERATOR [address] [phone] [facility] Start: 02-28-2023 End: 02-28-2023 ambulatory 02/28/2023 12:00 PM EDT Rehab Services Visit [facility] [address] [address] Nj Ayala, DRAFTER AUTOMOTIVE DESIGN LAYOUT-PROCESS CAMERA OPERATOR [address] [phone] Isa García PTA [facility] [place] Start: 02-23-2023 End: 02-23-2023 Patient encounter procedure [facility] Start: 02-21-2023 End: 02-21-2023 Clinical Support Encounter 02/21/2023 8:45 AM EDT Clinical Support Encounter [facility] [address] [place] [address] Nj Ayala, DRAFTER AUTOMOTIVE DESIGN LAYOUT-PROCESS CAMERA OPERATOR [address] [phone] [facility] Start: 02-15-2023 End: 02-15-2023 ambulatory 02/15/2023 2:00 PM EDT Rehab Services Visit [facility] [address] [address] Nj Ayala, DRAFTER AUTOMOTIVE DESIGN LAYOUT-PROCESS CAMERA OPERATOR [address] [phone] Marcelina Tee, PT [facility] [place] Start: 02-15-2023 End: 02-15-2023 Patient encounter procedure 02/15/2023 1:15 PM EDT Office Visit [facility] [address] [place] [address] Nj Ayala, DRAFTER AUTOMOTIVE DESIGN LAYOUT-PROCESS CAMERA OPERATOR [address] [phone] [facility] Start: 02-08-2023 End: 02-08-2023 Patient encounter procedure 02/08/2023 Office Visit Chemotherapy Bridget Dahl MD [address] [place] [address] [facility] Start: 02-08-2023 End: 03-08-2023 XR Foot - right 3 Views [facility] Comment on above: Expected: 02/08/2023, Expires: Start: 02-07-2023 Fasting lipid profile LIPID SCREENING [facility] Start: 02-07-2023 Lipid panel LIPID SCREENING [facility] Start: 02-01-2023 End: 02-01-2023 Patient encounter procedure 02/01/2023 Office Visit Wound Care Nj Ayala, DRAFTER AUTOMOTIVE DESIGN LAYOUT-PROCESS CAMERA OPERATOR [address] [phone] [facility] Start: 02-01-2023 End: 02-01-2023 ambulatory 02/01/2023 Rehab Services Visit Physical Therapy Nj Ayala, DRAFTER AUTOMOTIVE DESIGN LAYOUT-PROCESS CAMERA OPERATOR [address] [phone] Isa García PTA [facility] [place] Start: 01-28-2023 End: 01-28-2023 Patient encounter procedure 01/28/2023 Office Visit Podiatry Kristi Bryan, DPMicheal [address] [facility], [facility] Start: 01-26-2023 End: 01-27-2024 HCV RNA HERMAN QUAL RFX TO QUANT HCV RNA HERMAN QUAL RFX TO QUANT Lab Routine Chronic hepatitis C without hepatic coma Expected: 01/26/2023, Expires: 01/27/2024 [facility] Comment on above: Expected: 01/26/2023, Expires: Start: 01-26-2023 End: 01-27-2024 Hepatic function 2000 panel - Serum or Plasma HEPATIC FUNCTION PANEL Lab Routine Chronic hepatitis C without hepatic coma Expected: 01/26/2023, Expires: 01/27/2024 [facility] Comment on above: Expected: 01/26/2023, Expires: Start: 01-26-2023 End: 01-27-2024 M TUBERCULOSIS BY QUANTIFERON, BLD M TUBERCULOSIS BY QUANTIFERON, BLD Lab Routine Healthcare maintenance Expected: 01/26/2023, Expires: 01/27/2024 [facility] Comment on above: Expected: 01/26/2023, Expires: Start: 01-26-2023 End: 01-27-2024 PROTIME-INR PROTIME-INR Lab Routine Chronic hepatitis C without hepatic coma Cirrhosis of liver without ascites, unspecified hepatic cirrhosis type Expected: 01/26/2023, Expires: 01/27/2024 [facility] Comment on above: Expected: 01/26/2023, Expires: Start: 01-25-2023 End: 01-25-2023 Patient encounter procedure 01/25/2023 Office Visit Wound Care Nj Ayala DRAFTER AUTOMOTIVE DESIGN LAYOUT-PROCESS CAMERA OPERATOR [address] [phone] [facility] Start: 01-25-2023 End: 01-25-2023 ambulatory 01/25/2023 Rehab Services Visit Physical Therapy Nj Ayala, DRAFTER AUTOMOTIVE DESIGN LAYOUT-PROCESS CAMERA OPERATOR [address] [phone] Isa García PTA [facility] [place] Start: 01-12-2023 End: 01-12-2023 Patient encounter procedure 01/12/2023 Office Visit Infectious Diseases Nathan Hayden MD [address] [place] [address] [facility] Start: 01-04-2023 End: 01-04-2023 Patient encounter procedure 01/04/2023 Office Visit Wound Care Nj Ayala, DRAFTER AUTOMOTIVE DESIGN LAYOUT-PROCESS CAMERA OPERATOR [address] [place] [address] [facility] Start: 01-04-2023 End: 01-04-2023 ambulatory 01/04/2023 Rehab Services Visit Physical Therapy Nj Ayala, DRAFTER AUTOMOTIVE DESIGN LAYOUT-PROCESS CAMERA OPERATOR [address] [place] [address] Isa García PTA [facility] [place] Start: 12-28-2022 End: 12-28-2022 Patient encounter procedure 12/28/2022 Office Visit Wound Care Nj Ayala, DRAFTER AUTOMOTIVE DESIGN LAYOUT-PROCESS CAMERA OPERATOR [address] [place] [address] [facility] Start: 12-28-2022 End: 12-28-2022 ambulatory 12/28/2022 Rehab Services Visit Physical Therapy Nj Ayala, DRAFTER AUTOMOTIVE DESIGN LAYOUT-PROCESS CAMERA OPERATOR [address] [place] [address] Isa García PTA [facility] [place] Start: 12-21-2022 End: 12-21-2022 Patient encounter procedure 12/21/2022 Office Visit Wound Care Nj Ayala, DRAFTER AUTOMOTIVE DESIGN LAYOUT-PROCESS CAMERA OPERATOR [address] [place] [address] [facility] [place] [facility] Start: 12-14-2022 End: 12-14-2022 Patient encounter procedure 12/14/2022 Office Visit Wound Care Nj Ayala, DRAFTER AUTOMOTIVE DESIGN LAYOUT-PROCESS CAMERA OPERATOR [address] [place] [address] [facility] Start: 12-14-2022 End: 12-14-2022 ambulatory 12/14/2022 Rehab Services Visit Physical Therapy Nj Ayala, DRAFTER AUTOMOTIVE DESIGN LAYOUT-PROCESS CAMERA OPERATOR [address] [place] [address] Marcelina Tee, PT [facility] [place] Start: 12-08-2022 End: 12-08-2022 Patient encounter procedure 12/08/2022 Office Visit Infectious Diseases Nathan Hayden MD [address] [place] [address] [facility] Infect[facility] Start: 12-07-2022 End: 12-07-2022 Patient encounter procedure 12/07/2022 Office Visit Chemotherapy Bridget Dahl MD [address] [place] [address] [facility] Start: 12-07-2022 End: 12-07-2022 Patient encounter procedure 12/07/2022 Office Visit Wound Care Nj Ayala Sheryl, DRAFTER AUTOMOTIVE DESIGN LAYOUT-PROCESS CAMERA OPERATOR [address] [place] [address] [facility] Start: 11-30-2022 End: 11-30-2022 Clinical Support Encounter 11/30/2022 Clinical Support Encounter Wound Care Nj Ayala Sheryl, DRAFTER AUTOMOTIVE DESIGN LAYOUT-PROCESS CAMERA OPERATOR [address] [place] [address] [phone] [facility] Start: 11-25-2022 End: 11-25-2022 Patient encounter procedure 11/25/2022 Office Visit Chemotherapy Bridget Dahl MD [address] [place] [address] [facility] Start: 11-25-2022 End: 11-26-2023 ISSAC MULTIPLEX SCRN WITH REFLEX ISSAC MULTIPLEX SCRN WITH REFLEX Lab Routine Pancytopenia Thrombocytopenia Leukopenia, unspecified type Microcytic hypochromic anemia Hepatosplenomegaly Expected: 11/25/2022, Expires: 11/26/2023 [facility] Comment on above: Expected: 11/25/2022, Expires: Start: 11-25-2022 End: 11-26-2023 Cyanocobalamin vitamin b-12 VITAMIN B12 Lab Routine Pancytopenia Thrombocytopenia Leukopenia, unspecified type Microcytic hypochromic anemia Hepatosplenomegaly Expected: 11/25/2022, Expires: 11/26/2023 [facility] Comment on above: Expected: 11/25/2022, Expires: Start: 11-25-2022 End: 11-26-2023 DSDNA ANTIBODY DSDNA ANTIBODY Lab Routine Pancytopenia Thrombocytopenia Leukopenia, unspecified type Microcytic hypochromic anemia Hepatosplenomegaly Expected: 11/25/2022, Expires: 11/26/2023 [facility] Comment on above: Expected: 11/25/2022, Expires: Start: 11-25-2022 End: 11-26-2023 Ferritin [Mass/volume] in Serum or Plasma FERRITIN Lab Routine Pancytopenia Thrombocytopenia Leukopenia, unspecified type Microcytic hypochromic anemia Hepatosplenomegaly Expected: 11/25/2022, Expires: 11/26/2023 [facility] Comment on above: Expected: 11/25/2022, Expires: Start: 11-25-2022 End: 11-26-2023 Folate [Mass/volume] in Serum or Plasma FOLATE, SERUM Lab Routine Pancytopenia Thrombocytopenia Leukopenia, unspecified type Microcytic hypochromic anemia Hepatosplenomegaly Expected: 11/25/2022, Expires: 11/26/2023 [facility] Comment on above: Expected: 11/25/2022, Expires: Start: 11-25-2022 End: 11-26-2023 IRON/IRON BINDING/TRANSFERRIN IRON/IRON BINDING/TRANSFERRIN Lab Routine Pancytopenia Thrombocytopenia Leukopenia, unspecified type Microcytic hypochromic anemia Hepatosplenomegaly Expected: 11/25/2022, Expires: 11/26/2023 [facility] Comment on above: Expected: 11/25/2022, Expires: Start: 11-25-2022 End: 11-26-2023 PLATELET AB ID PANEL PLATELET AB ID PANEL Lab Routine Pancytopenia Thrombocytopenia Leukopenia, unspecified type Microcytic hypochromic anemia Hepatosplenomegaly Expected: 11/25/2022, Expires: 11/26/2023 [facility] Comment on above: Expected: 11/25/2022, Expires: Start: 11-25-2022 End: 11-26-2023 REQUEST FOR MISC LAB SENDOUT REQUEST FOR MISC LAB SENDOUT Lab Routine Pancytopenia Thrombocytopenia Leukopenia, unspecified type Microcytic hypochromic anemia Hepatosplenomegaly Expected: 11/25/2022 (Approximate), Expires: 11/26/2023 [facility] Comment on above: Expected: 11/25/2022 (Approximate), Expi res: 11/26/2023 Start: 11-25-2022 End: 11-26-2023 RETICULOCYTES RETICULOCYTES Lab Routine Pancytopenia Thrombocytopenia Leukopenia, unspecified type Microcytic hypochromic anemia Hepatosplenomegaly Expected: 11/25/2022, Expires: 11/26/2023 [facility] Comment on above: Expected: 11/25/2022, Expires: Start: 11-25-2022 End: 11-26-2023 SOLUBLE TRANSFERRIN RECEPTOR SOLUBLE TRANSFERRIN RECEPTOR Lab Routine Pancytopenia Thrombocytopenia Leukopenia, unspecified type Microcytic hypochromic anemia Hepatosplenomegaly Expected: 11/25/2022, Expires: 11/26/2023 [facility] Comment on above: Expected: 11/25/2022, Expires: Start: 11-24-2022 End: 11-24-2022 Patient encounter procedure 11/24/2022 Office Visit Infectious Diseases Nathan Hayden MD [address] [place] [address] [facility] Infectious Disease Start: 11-23-2022 End: 11-23-2022 Patient encounter procedure 11/23/2022 Office Visit Wound Care Nj Ayala, DRAFTER AUTOMOTIVE DESIGN LAYOUT-PROCESS CAMERA OPERATOR [address] [place] [address] [facility] Start: 11-15-2022 Potassium [Moles/volume] in Serum or Plasma POTASSIUM [facility] Start: 11-09-2022 End: 11-09-2022 Patient encounter procedure 11/09/2022 Office Visit Wound Care Jamie Nj Sheryl, DRAFTER AUTOMOTIVE DESIGN LAYOUT-PROCESS CAMERA OPERATOR [address] [place] [phone] [facility] Start: 10-27-2022 End: 10-27-2022 Patient encounter procedure 10/27/2022 Office Visit Infectious Diseases Nathan Hayden MD [address] [place] [address] [facility] Infectious Disease Start: 10-21-2022 End: 10-21-2022 Patient encounter procedure 10/21/2022 Appointment Endoscopy Erick Snow, Antony Morgan, DO [address] [place] [address] [facility] Start: 09-30-2022 End: 09-30-2022 Patient encounter procedure 09/30/2022 Office Visit Podiatry Felipe Molina DPM [address] [place] [address] [facility] Start: 09-29-2022 End: 09-29-2023 Complete blood count with white cell differential, automated CBC, EDIF, PLATELET Lab Routine Chronic hepatitis C without hepatic coma Expected: 09/29/2022, Expires: 09/29/2023 [facility] Comment on above: Expected: 09/29/2022, Expires: Start: 09-29-2022 End: 09-29-2023 Comprehensive metabolic 2000 panel - Serum or Plasma COMPREHENSIVE METABOLIC PANEL Lab Routine Chronic hepatitis C without hepatic coma Expected: 09/29/2022, Expires: 09/29/2023 [facility] Comment on above: Expected: 09/29/2022, Expires: Start: 09-29-2022 End: 09-29-2023 HBV REAL-TIME PCR, QUANT HBV REAL-TIME PCR, QUANT Lab Routine Chronic hepatitis C without hepatic coma Hepatitis B core antibody positive Expected: 09/29/2022, Expires: 09/29/2023 [facility] Comment on above: Expected: 09/29/2022, Expires: Start: 09-29-2022 End: 09-29-2023 HCV RNA HERMAN QUAL RFX TO QUANT HCV RNA HERMAN QUAL RFX TO QUANT Lab Routine Chronic hepatitis C without hepatic coma Expected: 09/29/2022, Expires: 09/29/2023 [facility] Comment on above: Expected: 09/29/2022, Expires: Start: 09-23-2022 End: 09-23-2022 Patient encounter procedure 09/23/2022 Appointment Endoscopy Antony Suarez Jr., DO [address] [place] [address], [place] [address] [facility] Start: 09-15-2022 End: 09-15-2022 Patient encounter procedure 09/15/2022 Office Visit Infectious Diseases Nathan Hayden MD [address] [place] [address] [facility] Infect[facility] Disease Start: 08-26-2022 End: 08-26-2022 Patient encounter procedure 08/26/2022 Office Visit Gastroenterology Antony Suarez Jr., DO [address] [place] [address], [place] [address] [facility] Start: 08-26-2022 End: 08-26-2023 ISSAC MULTIPLEX SCRN WITH REFLEX ISSAC MULTIPLEX SCRN WITH REFLEX Lab Routine Cirrhosis of liver without ascites, unspecified hepatic cirrhosis type Chronic hepatitis C without hepatic coma Expected: 08/26/2022, Expires: 08/26/2023 [facility] Comment on above: Expected: 08/26/2022, Expires: Start: 08-26-2022 End: 08-26-2023 ANCA INIT SCRN (ANCA, PR3AB, MPO) ANCA INIT SCRN (ANCA, PR3AB, MPO) Lab Routine Cirrhosis of liver without ascites, unspecified hepatic cirrhosis type Chronic hepatitis C without hepatic coma Expected: 08/26/2022, Expires: 08/26/2023 [facility] Comment on above: Expected: 08/26/2022, Expires: 4 Start: 08-26-2022 End: 08-26-2023 Angiotensin converting enzyme [Enzymatic activity/volume] in Serum or Plasma ANGIOTENSIN CONVERTING ENZYME Lab Routine Cirrhosis of liver without ascites, unspecified hepatic cirrhosis type Chronic hepatitis C without hepatic coma Expected: 08/26/2022, Expires: 08/26/2023 [facility] Comment on above: Expected: 08/26/2022, Expires: Start: 08-26-2022 End: 08-26-2023 ANTI MITOCHONDRIAL ANTIBODY ANTI MITOCHONDRIAL ANTIBODY Lab Routine Cirrhosis of liver without ascites, unspecified hepatic cirrhosis type Chronic hepatitis C without hepatic coma Expected: 08/26/2022, Expires: 08/26/2023 [facility] Comment on above: Expected: 08/26/2022, Expires: 4 Start: 08-26-2022 End: 08-26-2023 CERULOPLASMIN CERULOPLASMIN Lab Routine Cirrhosis of liver without ascites, unspecified hepatic cirrhosis type Chronic hepatitis C without hepatic coma Expected: 08/26/2022, Expires: 08/26/2023 [facility] Comment on above: Expected: 08/26/2022, Expires: 4 Start: 08-26-2022 End: 08-26-2023 CMV IGM AB CMV IGM AB Lab Routine Cirrhosis of liver without ascites, unspecified hepatic cirrhosis type Chronic hepatitis C without hepatic coma Expected: 08/26/2022, Expires: 08/26/2023 [facility] Comment on above: Expected: 08/26/2022, Expires: 4 Start: 08-26-2022 End: 08-26-2023 COPPER COPPER Lab Routine Cirrhosis of liver without ascites, unspecified hepatic cirrhosis type Chronic hepatitis C without hepatic coma Expected: 08/26/2022, Expires: 08/26/2023 [facility] Comment on above: Expected: 08/26/2022, Expires: 4 Start: 08-26-2022 End: 08-26-2023 DIAGNOSTIC UPPER ENDOSCOPY DIAGNOSTIC UPPER ENDOSCOPY GI/Bronch Routine Cirrhosis of liver without ascites, unspecified hepatic cirrhosis type Chronic hepatitis C without hepatic coma Expected: 08/26/2022, Expires: 08/26/2023 [facility] Comment on above: Expected: 08/26/2022, Expires: 4 Start: 08-26-2022 End: 08-26-2023 EBV ACUTE INFECTION ANTIBODIES PROFILE EBV ACUTE INFECTION ANTIBODIES PROFILE Lab Routine Cirrhosis of liver without ascites, unspecified hepatic cirrhosis type Chronic hepatitis C without hepatic coma Expected: 08/26/2022, Expires: 08/26/2023 [facility] Comment on above: Expected: 08/26/2022, Expires: Start: 08-26-2022 End: 08-26-2023 Protein electrophoresis PROTEIN ELECTROPHORESIS Lab Routine Cirrhosis of liver without ascites, unspecified hepatic cirrhosis type Chronic hepatitis C without hepatic coma Expected: 08/26/2022, Expires: 08/26/2023 [facility] Comment on above: Expected: 08/26/2022, Expires: Start: 08-26-2022 End: 08-26-2023 REQUEST FOR MISC LAB SENDOUT REQUEST FOR MISC LAB SENDOUT Lab Routine Cirrhosis of liver without ascites, unspecified hepatic cirrhosis type Chronic hepatitis C without hepatic coma Expected: 08/26/2022, Expires: 08/26/2023 [facility] Comment on above: Expected: 08/26/2022, Expires: 4 Start: 08-11-2022 End: 08-11-2022 Patient encounter procedure 08/11/2022 Office Visit Gastroenterology Erick Snow, Antony Morgan, [address] [place] [address] [facility] Start: 07-07-2022 End: 07-07-2023 Complete blood count with white cell differential, automated CBC, EDIF, PLATELET Lab Routine Chronic hepatitis C without hepatic coma Expected: 07/07/2022, Expires: 07/07/2023 [facility] Comment on above: Expected: 07/07/2022, Expires: 3 Start: 07-07-2022 End: 07-07-2023 Comprehensive metabolic 2000 panel - Serum or Plasma COMPREHENSIVE METABOLIC PANEL Lab Routine Chronic hepatitis C without hepatic coma Expected: 07/07/2022, Expires: 07/07/2023 [facility] Comment on above: Expected: 07/07/2022, Expires: 3 Start: 07-07-2022 End: 07-07-2023 HBV REAL-TIME PCR, QUANT HBV REAL-TIME PCR, QUANT Lab Routine Hepatitis B core antibody positive Expected: 07/07/2022, Expires: 07/07/2023 [facility] Comment on above: Expected: 07/07/2022, Expires: 3 Start: 04-22-2022 Influenza vaccination [facility] Start: 07-07-2021 Microalbumin measurement, urine, quantitative Urine Microalbumin [facility] Start: 07-07-2021 Urine screening for protein Urine Microalbumin [facility] Start: 05-12-2021 End: 05-12-2021 Patient encounter procedure 05/12/2021 Office Visit Podiatry Felipe Molina DPM [address] [place] [address] [facility] Pod[facility] Start: 04-22-2021 Influenza vaccination [facility] Start: 04-14-2021 End: 04-14-2021 Patient encounter procedure 04/14/2021 Office Visit Podiatry Felipe Molina DPM [address] [place] [address] [facility] Start: 01-04-2021 HbA1c (Bld) [Mass fraction] A1C [facility] Start: 01-04-2021 Hemoglobin A1c measurement A1C [facility] Start: 11-05-2020 Creatinine monitoring Creatinine monitoring [facility] [place] Start: 11-05-2020 Potassium monitoring Potassium monitoring [facility], [place] Start: 08-21-2020 End: 08-21-2020 Office Visit 08/21/2020 Office Visit Cardiology Gene Rebolledo MD [address] [place] [address] [phone] [facility] Start: 07-23-2020 End: 07-23-2020 Telemedicine 07/23/2020 Telemedicine Cardiology Merry Medrano CNP [address] [place] [address] [phone] [facility] Start: 07-22-2020 End: 07-22-2020 Office Visit 07/22/2020 Office Visit Family Medicine Palmer Givens PA [address] [place] [phone] [facility] Start: 07-14-2020 End: 07-14-2021 Complete blood count with white cell differential, automated CBC, EDIF, PLATELET Lab Routine Anemia, unspecified type Thrombocytopenia Expected: 07/14/2020, Expires: 07/14/2021 [facility] Comment on above: Expected: 07/14/2020, Expires: 1 Start: 07-14-2020 End: 07-14-2021 Comprehensive metabolic 2000 panel COMPREHENSIVE METABOLIC PANEL Lab Routine Chronic obstructive pulmonary disease with acute exacerbation Acute respiratory failure, unspecified whether with hypoxia or hypercapnia Atrial fibrillation, unspecified type Anemia, unspecified type Thrombocytopenia Elevated troponin Elevated brain natriuretic peptide (BNP) level Marijuana use Expected: 07/14/2020, Expires: 07/14/2021 [facility] Comment on above: Expected: 07/14/2020, Expires: 1 Start: 07-05-2020 HbA1c (Bld) [Mass fraction] A1C [facility] Start: 04-22-2020 Influenza vaccination INFLUENZA VACCINE (#1) [facility] Start: 04-22-2020 Influenza vaccination given [facility] Start: 02-06-2020 End: 02-06-2020 Follow-Up 02/06/2020 Follow-Up Sports Medicine Sofía Dukes MD [address] [place] [address] [phone] [facility] Start: 01-25-2020 End: 01-25-2020 Appointment [facility] Start: 01-25-2020 End: 01-25-2020 Home Care Visit 01/25/2020 Home Care Visit Home Health Services Harris Vargas RN [facility] Start: 01-24-2020 End: 01-24-2020 Home Care Visit 01/24/2020 Home Care Visit Home Health Services Jignesh Gilbert, PT [facility] Start: 01-23-2020 End: 01-23-2020 Follow-Up 01/23/2020 Follow-Up Sports Medicine Sofía Dukes MD [address] [place] [address] [phone] [facility] Start: 01-22-2020 End: 01-22-2020 Home Care Visit [facility] Start: 01-21-2020 End: 01-21-2020 Home Care Visit 01/21/2020 Home Care Visit Home Health Services Nisa Tavares, KELLY [facility] Start: 01-18-2020 End: 01-18-2020 Home Care Visit [facility] Start: 01-17-2020 End: 01-17-2020 Home Care Visit [facility] Start: 01-15-2020 End: 01-15-2020 Home Care Visit [facility] Start: 01-14-2020 End: 01-14-2020 Home Care Visit [facility] Start: 01-11-2020 End: 01-11-2020 Home Care Visit 01/11/2020 Home Care Visit Home Health Services Jessenia Salazar LPN [facility] Start: 01-10-2020 End: 01-11-2020 Home Care Visit [facility] Start: 01-09-2020 End: 01-09-2020 Appointment 01/09/2020 Appointment Home Health Services Pinky Brown RN [facility] Start: 01-09-2020 End: 01-09-2020 Home Care Visit 01/09/2020 Home Care Visit Home Health Services Jignesh Gilbert, PT [facility] Start: 01-08-2020 End: 01-08-2020 Hospital Encounter [facility] Comment on above: Primary osteoarthritis of right knee Right Total Knee Rep lacement Robotic Start: 01-05-2020 End: 01-05-2020 Office Visit 01/05/2020 Office Visit Lab Sofía [place] [address] [phone] [facility] Start: 01-04-2020 End: 01-04-2020 Surgical Consult [facility] Start: 12-07-2019 End: 12-07-2019 Treatment 12/07/2019 Treatment Rehabilitation Lena Hill, PROCESS CAMERA OPERATOR [address] [place] [address] [place] [address] [phone] Do Parrish, PT [facility] Start: 12-06-2019 End: 12-06-2019 Hospital [facility] Comment on above: Primary osteoarthritis of right knee Right Total Knee Rep lacement Robotic Start: 12-05-2019 End: 12-05-2019 Treatment 12/05/2019 Treatment Rehabilitation Lena Hill PROCESS CAMERA OPERATOR [address] [place] [address] [phone] Danisha Courtney, [facility] Start: 11-30-2019 End: 11-30-2019 Treatment 11/30/2019 Treatment Rehabilitation Lena Hill PROCESS CAMERA OPERATOR [address] [place] [address] [phone] Do Parrish, PT [facility] Start: 11-28-2019 End: 11-28-2019 Treatment 11/28/2019 Treatment Rehabilitation Lena Hill, PROCESS CAMERA OPERATOR [address] [place] [address] [place] [address] Danisha Courtney, [facility] Start: 11-23-2019 End: 11-23-2019 Treatment 11/23/2019 Treatment Rehabilitation Lena Hill, PROCESS CAMERA OPERATOR [address] [place] [address] [place] [address] Danisha Courtney [facility] Start: 11-21-2019 End: 11-21-2019 Treatment 11/21/2019 Treatment Rehabilitation Lena Hill, PROCESS CAMERA OPERATOR [address] [place] [address] [place] [address] [phone] Danisha Courtney PTA [facility] Start: 11-20-2019 End: 11-20-2019 Surgical Consult 11/20/2019 Surgical Consult Sports Medicine Sofía Dukes MD [address] [place] [address] [phone] [facility] Start: 11-16-2019 End: 11-16-2019 Treatment 11/16/2019 Treatment Rehabilitation Lena Hill CNP [address] [place] [address] [place] [address] [phone] Do Parrish, PT [facility] Start: 11-14-2019 End: 11-14-2019 Treatment 11/14/2019 Treatment Rehabilitation Lena Hill CNP [address] [place] [address] [phone] Danisha Courtney [facility] Start: 11-13-2019 End: 11-13-2019 Office Visit [facility] Preadmission Testing Start: 11-09-2019 End: 11-09-2019 Treatment 11/09/2019 Treatment Rehabilitation Lena Hill CNP [address] [place] [address] [phone] Do Parrish, PT [facility] Start: 11-07-2019 End: 11-07-2019 Treatment 11/07/2019 Treatment Rehabilitation Lena Hill, PROCESS CAMERA OPERATOR [address] [place] [address] [phone] Christa Sanchez, PT [facility] Start: 11-06-2019 End: 11-06-2019 Office Visit 11/06/2019 Office Visit Cardiology Sofía Dukes MD [address] [place] [address] [phone] Jeff Minor MD [address] [place] [address] [phone] [facility] Start: 11-02-2019 End: 11-02-2019 Treatment 11/02/2019 Treatment Rehabilitation Lena Hill, PROCESS CAMERA OPERATOR [address] [facility] [address] [place] [address] [phone] Deborah Phillip, [facility] Start: 10-31-2019 End: 10-31-2019 Treatment 10/31/2019 Treatment Rehabilitation Lena Hill, PROCESS CAMERA OPERATOR [address] [facility] [address] [place] [address] Minesh Dejesus [facility] Start: 10-30-2019 End: 10-29-2020 Diagnostic radiography of chest, combined PA and lateral XR CHEST PA AND LATERAL Imaging Routine SOB (shortness of breath) on exertion Expected: 10/30/2019, Expires: 10/29/2020 [facility] Comment on above: Expected: 10/30/2019, Expires: 1 Start: 04-22-2019 Influenza vaccination [facility] Start: 04-22-2019 Influenza vaccination given SEQUENTIAL INFLUENZA VACCINE (#1) [facility] Start: 02-07-2019 Potassium [Moles/Vol] POTASSIUM [facility] Start: 02-07-2019 Prostate specific antigen measurement PROSTATE CANCER SCREENING DISCUSSION [facility] Start: 10-06-2018 End: 10-06-2018 Office Visit 10/06/2018 Office Visit Orthopedic Surgery Sb Andino MD [facility] [place] [address] [phone] [facility] Start: 08-08-2018 End: 08-08-2018 Ambulatory 08/08/2018 Office Visit Orthopedic Surgery Roe Davey MD [address] [facility] [address] [place] [address] [phone] [facility] Start: 08-04-2018 End: 08-04-2018 Ambulatory 08/04/2018 Office Visit Orthopedic Surgery Sb Andino MD [address] [facility] [place] [address] [phone] [facility] Start: 06-20-2018 End: 06-20-2018 Ambulatory 06/20/2018 Office Visit Sports Medicine Daniel Hammer MD [address] [place] [address] [phone] [facility] Start: 06-06-2018 End: 06-06-2018 Ambulatory 06/06/2018 Office Visit Sports Medicine Daniel Hammer MD [address] [place] [address] [phone] [facility] Start: 05-15-2018 End: 05-15-2018 Ambulatory 05/15/2018 Office Visit Orthopedic Surgery Sb Andino MD [address] [place] [address] [phone] [facility] Start: 05-02-2018 End: 05-02-2018 Ambulatory 05/02/2018 Office Visit Sports Medicine Daniel Hammer MD [address] [place] [address] [phone] [facility] Start: 04-22-2018 Influenza vaccination [facility] Start: 04-22-2018 Influenza vaccination given SEQUENTIAL INFLUENZA VACCINE (#1) [facility] Start: 04-13-2018 Ambulatory 04/13/2018 Hospital Encounter Sb Andino MD [address] [place] [address] [phone] [facility] Start: 04-11-2018 End: 04-11-2018 Ambulatory 04/11/2018 Office Visit Sports Medicine Paulino Rodrigues MD [address] [place] [address] [phone] Daniel Hammer MD [address] [place] [address] [phone] [facility] Start: 11-02-2017 HbA1c (Bld) [Mass fraction] A1C [facility] Start: 04-22-2017 Influenza vaccination SEQUENTIAL INFLUENZA VACCINE (#1) [facility] Work Phone: Start: 2016 Administration of herpes zoster vaccine Zoster Vaccines (1 of 2) [facility] Start: 2016 Colon cancer screen colonoscopy Colon cancer screen colonoscopy [place] Start: 2016 Colonoscopy [facility] Start: 2016 Protein mass conc COLON CANCER SCREENING DISCUSSION [facility] Start: 2016 RSV Vaccines (1 - Risk 50-74 years 1-dose series) RSV Vaccines (1 - Risk 50-74 years 1-dose series) [facility] Start: 2016 Screening for malignant neoplasm of colon [facility] Start: 2016 Shingles Vaccine (1 of 2) Shingles Vaccine (1 of 2) [place] Start: 2016 Zoster vaccine hzv live for subcutaneous use ZOSTER (SHINGLES) VACCINE (1 of 2) [facility] Start: 09-15-2015 Pneumococcal Vaccine: 50+ Years (2 of 2 - PCV) Pneumococcal Vaccine: 50+ Years (2 of 2 - PCV) [facility] Start: 09-15-2015 Pneumococcal Vaccine: Age 50+ (2 of 2 - PCV) Pneumococcal Vaccine: Age 50+ (2 of 2 - PCV) [facility] Start: 09-15-2015 Pneumococcal Vaccine: Ped or At-Risk (2 - PCV) Pneumococcal Vaccine: Ped or At-Risk (2 - PCV) [facility] Start: 09-15-2015 Pneumococcal Vaccine: Ped or At-Risk (2 of 2 - PCV) Pneumococcal Vaccine: Ped or At-Risk (2 of 2 - PCV) [facility] Start: 2011 Colonoscopy COLORECTAL CANCER SCREENING DISCUSSION [facility] Start: 2011 Screening for malignant neoplasm of colon COLORECTAL CANCER SCREENING DISCUSSION [facility] Start: 2006 Diabetes screen Diabetes screen [place], [place] Start: 2006 Lipid screen Lipid screen [place] Start: 1985 DTaP/Tdap/Td vaccine (1 - Tdap) DTaP/Tdap/Td vaccine (1 - Tdap) [facility] Start: 1985 Hepatitis A immunization Hepatitis A Vaccines (1 of 2 - Risk 2-dose series) [facility] Start: 1985 Hepatitis B vaccination Hepatitis B Vaccines (1 of 3 - 19+ 3-dose series) [facility] Start: 1985 Third diphtheria, tetanus and acellular pertussis (DTaP) vaccination TDAP (ADULT) [facility] Start: 1984 Hepatitis C antibody, confirmatory test [facility]atitis [facility] Start: 1984 Hepatitis C screening Hepatitis C Screening [facility] Start: 1984 Tetanus vaccination TETANUS [facility] Start: 1982 COVID-19 Vaccine (1 of 2) COVID-19 Vaccine (1 of 2) [facility] Start: 1982 COVID-19 Vaccine (1) COVID-19 Vaccine (1) [facility] Start: 1981 HIV screen HIV screen [place], [place] Start: 1981 HIV screening [facility] Start: 1979 HIV screening HIV SCREENING DISCUSSION [facility] Start: 1978 Adolescent depression screening assessment Depression Screening (PHQ9) [facility] Start: 1978 COVID-19 Vaccine (1) COVID-19 Vaccine (1) [facility] Start: 1978 Depression screening using PHQ-9 (Patient Health Questionnaire 9) score [facility] Start: 1976 Albumin DL <= 20 mg/L (U) [Mass/Vol] Urine Microalbumin [facility] Start: 1976 Diabetic foot examination [facility] Start: 1976 Glaucoma screening Diabetic Eye Exam [facility] Start: 1976 Ophthalmic examination and evaluation Ophthalmology Exam [facility] Start: 1976 Urine screening for protein Urine (micro)albumin/creatinine ratio - Diabetes [facility] Start: 1972 Pneumococcal 0-64 years Vaccine (1 of 1 - PPSV23) Pneumococcal 0-64 years Vaccine (1 of 1 - PPSV23) [facility] [place], [place] Start: 1972 Pneumococcal Vaccine: Ped or At-Risk (1 of 2 - PPSV23) Pneumococcal Vaccine: Ped or At-Risk (1 of 2 - PPSV23) [facility] Start: 1971 COVID-19 VACCINE (1) COVID-19 VACCINE (1) [facility] Start: 1969 History and physical examination, annual for health maintenance Wellness Visit [facility] Start: 1969 Medicare Wellness Visit Medicare Wellness Visit [facility] Start: 1967 Vjhrntc-qmyso-[id number] vaccination MMR Vaccines (1 of 1 - Standard series) [facility] Start: 01-09-1967 COVID-19 VACCINE (#1) COVID-19 VACCINE (#1) [facility] Start: 1966 Depression screening using PHQ-9 (Patient Health Questionnaire 9) score Depression Screening (PHQ9) [facility] Start: 1966 Hepatitis B vaccination HEP B VACCINE (1 of 3 - 3-dose series) [facility] Start: 1966 Hepatitis C antibody, confirmatory test HEPATITIS C VIRUS SCREENING [facility] Start: 1966 Prostate specific antigen measurement PSA Level [facility] Start: 1966 Protein mass conc COLONOSCOPY [facility] Start: 1966 Screening colonoscopy COLONOSCOPY [facility] Work Phone: Start: 1966 Screening for malignant neoplasm of colon [facility] Start: 1966 Tetanus vaccination [facility] End: 04-21-2022 Aerobic microbial culture Wound Aerobic Culture Microbiology Routine Once for 1 Occurrences starting 04/21/2022 until 04/21/2022 [facility] Work Phone: Comment on above: Once for 1 Occurrences starting 04/21/20 until 04/21/2022 Aerobic microbial culture Wound Aerobic Culture Microbiology Routine Ulcer of left lower extremity with fat layer exposed (HCC) 07/15/2023 8:44 AM EST [facility] Work Phone: Aerobic microbial culture Wound Aerobic Culture Microbiology Routine Ulcer of left lower extremity with fat layer exposed (HCC) 07/29/2023 1:45 PM EST [facility] Work Phone: ANCA INIT SCRN (ANCA , PR3AB, MPO) ANCA INIT SCRN (ANCA, PR3AB, MPO) Lab Today 11/14/2021 10:17 AM EDT [facility] Angiotensin converti ng enzyme [Enzymatic activity/volume] in Serum or Plasma ANGIOTENSIN CONVERTING ENZYME Lab Today 11/14/2021 10:17 AM EDT [facility] End: 07-03-2024 Aspergillus Galactomannan Antigen [facility] Comment on above: Once for 1 Occurrences starting 07/03/20 until 07/03/2024 End: 07-08-2020 Bacteria identified Aer cx Nom (Sput) Sputum Aerobic Culture Microbiology Routine Once for 1 Occurrences starting 07/08/2020 until 07/08/2020 [facility] Comment on above: Once for 1 Occurrences starting 07/08/20 until 07/08/2020 Bacteria identified Aer cx Nom (Sput) Sputum Aerobic Culture Microbiology Routine 12/03/2020 5:49 PM EDT [facility] Bacteria identified Cx Nom (Bld) [facility] Bacteria identified in Blood by Culture [facility] Bacteria identified in Blood by Culture [facility] Work Phone: End: 02-26-2023 Bacteria identified in Blood by Culture [facility] Comment on above: One Time for 1 Occurrences starting 03/2023 until 02/26/2023 Bacteria identified in Blood by Culture Blood Culture Aerobic/Anaerobic Microbiology [facility] 04/02/2025 1:31 PM EDT [facility] Work Phone: Bacteria identified in Blood by Culture Blood Culture Aerobic/Anaerobic Microbiology [facility] 05/11/2025 8:53 PM EDT [facility] Work Phone: End: 07-05-2024 Bacteria identified in Sputum by Aerobe culture Sputum Aerobic Culture Microbiology Routine Once for 1 Occurrences starting 07/05/2024 until 07/05/2024 [facility] Comment on above: Once for 1 Occurrences starting 07/05/20 until 07/05/2024 End: 04-20-2022 Bacteria identified in Unspecified specimen by Aerobe culture [facility] Work Phone: Comment on above: Once for 1 Occurrences starting 04/20/20 until 04/20/2022 Bacterial culture an d sensitivity CULTURE WOUND Microbiology Today Venous stasis ulcer of right lower leg with edema of right lower leg Chronic venous insufficiency Lymphedema 12/28/2022 2:20 PM EDT [facility] End: 11-07-2019 Basic Metabolic Panel w/ Reflex to MG Basic Metabolic Panel w/ Reflex to MG Lab Routine Tomorrow AM for 1 Occurrences starting 11/07/2019 until 11/07/2019 [facility] Comment on above: Tomorrow AM for 1 Occurrences starting 0 11/07/2019 until 11/07/2019 Body Fluid Aerobic & Anaerobic Culture Body Fluid Aerobic & Anaerobic Culture Microbiology Routine Effusion of right knee Synovitis Abscess of knee, right History of total right knee replacement 05/09/2025 2:39 PM ED [facility] Work [facility]: End: 05-09-2026 Body Fluid Aerobic & Anaerobic Culture Body Fluid Aerobic & Anaerobic Culture Microbiology Routine Effusion of right knee Synovitis Abscess of knee, right History of total right knee replacement 1 Occurrences starting 05/09/2025 until 05/09/2026 [employer] Work Phone: Comment on above: 1 Occurrences starting 05/09/2025 until 05/09/2026 Body Fluid Aerobic & Anaerobic Culture [facility] Work Phone: Comment on above: Ordered: 05/09/2025 CARDIOLIPIN AB (IGG, IGA, IGM) CARDIOLIPIN AB (IGG, IGA, IGM) Lab Today 11/14/2021 1:53 PM T [facility] End: 11-07-2019 CBC auto differential CBC auto differential Lab Routine Tomorrow AM for 1 Occurrences starting 11/07/2019 until 11/07/2019 [facility] Comment on above: Tomorrow AM for 1 Occurrences starting 0 11/07/2019 until 11/07/2019 Change of dressing DE DRESSING C HANGE DE - OFFICE PERFORMED Routine Venous stasis ulcer of right lower leg with edema of right lower leg Chronic venous insufficiency Ordered: 11/16/2022 NoWait [facility] Comment on above: Ordered: 11/16/2022 Change of dressing DE DRESSING C HANGE DE - OFFICE PERFORMED Routine Venous stasis ulcer of right lower leg with edema of right lower leg Chronic venous insufficiency Lymphedema Ordered: 11/23/2022 [facility] Comment on above: Ordered: 11/23/2022 Change of dressing DE DRESSING C HANGE DE - OFFICE PERFORMED Routine Venous stasis ulcer of right lower leg with edema of right lower leg Chronic venous insufficiency Ordered: 11/30/2022 [facility] Comment on above: Ordered: 11/30/2022 Change of dressing DE DRESSING C HANGE DE - OFFICE PERFORMED Routine Venous stasis ulcer of right lower leg with edema of right lower leg Chronic venous insufficiency Lymphedema Ordered: 12/14/2022 [facility] Comment on above: Ordered: 12/14/2022 Change of dressing DE DRESSING C HANGE DE - OFFICE PERFORMED Routine Venous stasis ulcer of right lower leg with edema of right lower leg Chronic venous insufficiency Lymphedema Ordered: 12/21/2022 [facility] Comment on above: Ordered: 12/21/2022 Change of dressing DE DRESSING C HANGE DE - OFFICE PERFORMED Routine Venous stasis ulcer of right lower leg with edema of right lower leg Chronic venous insufficiency Lymphedema Ordered: 12/28/2022 [facility] Comment on above: Ordered: 12/28/2022 Change of dressing DE DRESSING C HANGE DE - OFFICE PERFORMED Routine Venous stasis ulcer of right lower leg with edema of right lower leg Chronic venous insufficiency Ordered: 01/18/2023 [facility] Comment on above: Ordered: 01/18/2023 Change of dressing DE DRESSING C HANGE DE - OFFICE PERFORMED Routine Venous stasis ulcer of right lower leg with edema of right lower leg Chronic venous insufficiency Lymphedema Foot mass, right Ordered: 01/25/2023 [facility] Comment on above: Ordered: 01/25/2023 Change of dressing DE DRESSING C HANGE DE - OFFICE PERFORMED Routine Venous stasis ulcer of right lower leg with edema of right lower leg Chronic venous insufficiency Lymphedema Foot mass, right Ordered: 02/08/2023 [facility] Comment on above: Ordered: 02/08/2023 Change of dressing DE DRESSING C HANGE DE - OFFICE PERFORMED Routine Venous stasis ulcer of right lower leg with edema of right lower leg Chronic venous insufficiency Lymphedema Ordered: 02/15/2023 [facility] Comment on above: Ordered: 02/15/2023 Change of dressing DE DRESSING C HANGE DE - OFFICE PERFORMED Routine Pressure ulcer of right foot, stage 3 Venous stasis ulcer of right lower leg with edema of right lower leg Lymphedema Chronic venous insufficiency Venous stasis ulcer of left lower leg with edema of left lower leg Ordered: 04/26/2023 [facility] Comment on above: Ordered: 04/26/2023 End: 03-08-2019 CRP, Inflammation CRP, Inflammation Routine Arthralgia, unspecified joint 1 Occurrences starting 03/07/2018 until 03/08/2019 [facility] CRYOGLOBULIN CRYOGLOBULIN Lab Today 11/15/2021 4:30 AM [facility] End: 03-31-2019 CT Foot Right Without Contrast CT Foot Right Without Contrast Routine Arthritis of foot, right Acquired pes planovalgus, right 1 Occurrences starting 03/31/2018 until 03/31/2019 [facility] End: 11-06-2019 Culture, Blood 1 Culture, Blood 1 Microbiology STAT One Time for 1 Occurrences starting 11/06/2019 until 11/06/2019 [facility] Comment on above: One Time for 1 Occurrences starting 10/20 until 11/06/2019 Culture, Blood 1 Culture, Blood 1 Microbiology STAT [facility]/06[facility]2019 [facility]: 11-06-2019 Culture, Blood 2 Culture, Blood 2 Microbiology STAT One Time for 1 Occurrences starting 11/06/2019 until 11/06/2019 [facility] Comment on above: One Time for 1 Occurrences starting 10/20 until 11/06/2019 Culture, Blood 2 Culture, Blood 2 Microbiology Stat [employer] Label print 11/06/2019 2:10 [facility] Culture, Respiratory Culture, Re spiratory Microbiology Stat [employer] Label print 11/06/2019 5:00 AM [facility] CYCLIC CITRULLINATE PEPTIDE AB CYCLIC CITRULLINATE PEPTIDE AB Lab Today 11/14/2021 4:35 AM [facility] End: 03-08-2019 Cyclic citrullinated peptide antibody CCP Antibody Routine Arthralgia, unspecified joint 1 Occurrences starting 03/07/2018 until 03/08/2019 [facility] End: 03-30-2021 Diagnostic radiography of toes XR TOE 1ST RIGHT Imaging Routine One Time for 1 Occurrences starting 03/30/2021 until 03/30/2021 [facility] Work Phone: Comment on above: One Time for 1 Occurrences starting 04/2021 until 03/30/2021 End: 03-25-[address] [place] [address] Comment on above: One Time for 1 Occurrences starting 10/21 until 11/13/2021 End: 03-08-2019 Erythrocyte sedimentation rate Sedimentation Rate Routine Arthralgia, unspecified joint 1 Occurrences starting 03/07/2018 until 03/08/2019 [facility] FUNGITELL ASSAY FUNGITELL ASSAY Lab Today 11/14/2021 10:17 AM [facility] End: 07-03-2024 Fungus serologic study [facility] Work Phone: Comment on above: Once for 1 Occurrences starting 07/03/20 until 07/03/2024 HAPTOGLOBIN HAPTOGLOBIN Lab Today 11/14/2021 1:53 PM [facility] Hepatitis A virus Ig M Ab [Presence] in Serum or Plasma by Immunoassay HEPATITIS A IGM AB Lab Today 11/14/2021 4:35 AM [facility] Comment on above: Every 4hr while awake until discontinued starting 11/06/2019 Every 2hr As Needed until discontinued starting 11/06/2019 End: 07-03-2024 Histoplasma Ab CompFix/ImmDiff, Serum Histoplasma Ab CompFix/ImmDiff, Serum Lab Routine Once for 1 Occurrences starting 07/03/2024 until 07/03/2024 [facility] Comment on above: Once for 1 Occurrences starting 07/03/20 until 07/03/2024 MARINA AND PE, SERUM MARINA AND PE, SE RUM Lab Today 11/14/2021 10:17 AM [facility] Initiate Oxygen Ther apy Protocol [facility] Comment on above: Daily until discontinued starting 2019, 2 completed Daily until disconti nued starting 11/06/2019 End: 07-05-2024 Legionella antigen assay Legionella Antigen, Urine Microbiology Routine Once for 1 Occurrences starting 07/05/2024 until 07/05/2024 [facility] Comment on above: Once for 1 Occurrences starting 07/05/20 until 07/05/2024 M TUBERCULOSIS BY QUANTIFERON, BLD M TUBERCULOSIS BY QUANTIFERON, BLD Lab Today 11/14/2021 10:17 AM [facility] End: 07-05-2024 Microbial culture, body fluid [facility] Work Phone: Comment on above: Once for 1 Occurrences starting 07/05/20 until 07/05/2024 Procedure on tissue specimen [facility] Comment on above: Release Upon Ordering for 1 Occurrences starting 01/08/2020, 1 completed Pulse Oximetry Spot Check Pulse Oximetry Spot Check Respiratory Care Routine Every 8hr until discontinued starting 11/06/2019 [facility] Comment on above: Every 8hr until discontinued starting End: 07-05-2024 Respiratory pathogens DNA and RNA panel - Nasopharynx by HERMAN with non-probe detection Respiratory PCR Panel Microbiology Routine Once for 1 Occurrences starting 07/05/2024 until 07/05/2024 [facility] Comment on above: Once for 1 Occurrences starting 07/05/20 until 07/05/2024 End: 03-08-2019 Rheumatoid factor Rheumatoid factor Routine Arthralgia, unspecified joint 1 Occurrences starting 03/07/2018 until 03/08/2019 [facility] Rmvl prosth tot knee prosth mma w/wo insj spacer ARTHROTOMY KNEE WITH SPACER INSERTION Abscess of knee, right History of total right knee replacement [facility] [place] Serum immunofixation Immunofixat ion, Serum Lab Routine 07/08/2020 4:42 PM EST [facility] End: 11-06-2019 Sputum induction Sputum induction Respiratory Care Routine One Time for 1 Occurrences starting 11/06/2019 until 11/06/2019 [facility] Comment on above: One Time for 1 Occurrences starting 10/20 until 11/06/2019 Standard ECG ECG ECG STAT 7:16 PM EDT [facility] End: 03-16-2023 Standard ECG ECG ECG STAT One Time for 1 Occurrences starting 03/16/2023 until 03/16/2023 [facility] Work Phone: Comment on above: One Time for 1 Occurrences starting 02/20 until 03/16/2023 Strapping unna boot DE APPLY OF UNNA BOOT DE - OFFICE PERFORMED Routine Venous stasis ulcer of right lower leg with edema of right lower leg Chronic venous insufficiency Ordered: 11/16/2022 [facility] Comment on above: Ordered: 11/16/2022 Strapping unna boot DE APPLY OF UNNA BOOT DE - OFFICE PERFORMED Routine Venous stasis ulcer of right lower leg with edema of right lower leg Chronic venous insufficiency Ordered: 11/30/2022 [facility] Comment on above: Ordered: 11/30/2022 Strapping unna boot DE APPLY OF UNNA BOOT DE - OFFICE PERFORMED Routine Venous stasis ulcer of right lower leg with edema of right lower leg Chronic venous insufficiency Lymphedema Ordered: 12/14/2022 [facility] Comment on above: Ordered: 12/14/2022 Strapping unna boot DE APPLY OF UNNA BOOT DE - OFFICE PERFORMED Routine Venous stasis ulcer of right lower leg with edema of right lower leg Chronic venous insufficiency Lymphedema Ordered: 12/21/2022 [facility] Comment on above: Ordered: 12/21/2022 Strapping unna boot DE APPLY OF UNNA BOOT DE - OFFICE PERFORMED Routine Venous stasis ulcer of right lower leg with edema of right lower leg Chronic venous insufficiency Lymphedema Ordered: 12/28/2022 [facility] Comment on above: Ordered: 12/28/2022 Strapping unna boot DE APPLY OF UNNA BOOT DE - OFFICE PERFORMED Routine Venous stasis ulcer of right lower leg with edema of right lower leg Chronic venous insufficiency Ordered: 01/18/2023 [facility] Comment on above: Ordered: 01/18/2023 Strapping unna boot DE APPLY OF UNNA BOOT DE - OFFICE PERFORMED Routine Venous stasis ulcer of right lower leg with edema of right lower leg Chronic venous insufficiency Lymphedema Foot mass, right Ordered: 01/25/2023 [facility] Comment on above: Ordered: 01/25/2023 Strapping unna boot DE APPLY OF UNNA BOOT DE - OFFICE PERFORMED Routine Venous stasis ulcer of right lower leg with edema of right lower leg Chronic venous insufficiency Lymphedema Ordered: 02/15/2023 [facility] Comment on above: Ordered: 02/15/2023 End: 07-05-2024 Streptococcus pneumoniae antigen assay S. pneumoniae Urine Antigen Microbiology Routine Once for 1 Occurrences starting 07/05/2024 until 07/05/2024 [facility] Comment on above: Once for 1 Occurrences starting 07/05/20 until 07/05/2024 Surgical Site Aerobi c & Anaerobic Culture [facility] Work Phone: Surgical Site Aerobi c Culture Surgical Site Aerobic Culture Microbiology Routine Primary osteoarthritis of right knee 01/08/2020 7:42 AM EDT [facility] Surgical Site Anaero bic Culture [facility] Comment on above: Release Upon Ordering for 1 Occurrences starting 01/08/2020 Thalassemia and Hemoglobinopathy Profile Thalassemia and Hemoglobinopathy Profile Lab Routine 07/08/2020 4:42 PM [facility] Transthoracic echocardiography ECHOCARDIOGRAM Echocardiography Routine Essential hypertension SOB (shortness of breath) on exertion Leg edema Ordered: 10/30/2019 [facility] Comment on above: Ordered: 10/30/2019 End: 03-08-2019 Uric Acid Uric Acid Routine Arthralgia, unspecified joint 1 Occurrences starting 03/07/2018 until 03/08/2019 [facility] Urine immunofixation Immunofixat ion, Urine Lab Routine 07/08/2020 4:42 PM EST [facility] End: 11-07-2019 Vancomycin, trough Vancomycin, trough Lab Timed One Time for 1 Occurrences starting 11/07/2019 until 11/07/2019 [place] Comment on above: One Time for 1 Occurrences starting 10/20 until 11/07/2019 Wound Aerobic And Anaerobic Culture Wound Aerobic And Anaerobic Culture Microbiology Routine 05/12/2025 1:55 AM EDT [facility] X-ray of left foot XR Foot Left 3+ Views (Standard) Imaging Routine Pain 04/22/2020 2:18 PM EDT [facility] End: 03-07-2019 XR Ankle Right 3+ Views (Standard) XR Ankle Right 3+ Views (Standard) Routine Arthralgia, unspecified joint 1 Occurrences starting 03/07/2018 until 03/07/2019 [facility] XR Chest PA and Abdo men AP XR Chest 1 View Imaging Routine 04/05/2025 10:34 AM EDT [facility] Work Phone: XR Clavicle Right XR Clavicle Ri ght Imaging JENNY 02/02/2021 4:05 PM EDT [facility] End: 03-07-2019 XR Foot Right 3+ Views (Standard) XR Foot Right 3+ Views (Standard) Routine Arthralgia, unspecified joint 1 Occurrences starting 03/07/2018 until 03/07/2019 [facility] End: 03-07-2019 XR Hip Right With Pelvis 2-3 Views (Routine) XR Hip Right With Pelvis 2-3 Views (Routine) Routine Arthralgia, unspecified joint 1 Occurrences starting 03/07/2018 until 03/07/2019 [facility] End: 03-07-2019 XR Knee Right 3 Views (Specify Views in Comments) XR Knee Right 3 Views (Specify Views in Comments) Routine Arthralgia, unspecified joint 1 Occurrences starting 03/07/2018 until 03/07/2019 [facility] End: 10-18-2025 XR Thoracic spine 3 Views XR Thoracic Spine 3 Views (Standard) Imaging Routine Compression fracture of T7 vertebra, initial encounter ([facility]) 1 Occurrences starting 10/18/2024 until 10/18/2025 [facility] Work Phone: Comment on above: 1 Occurrences starting 10/18/2024 until 10/18/2025 Immunizations Immunization Date Immunization Notes Care Provider Jessica [email or web address] 02-26-2023 tetanus toxoid, reduced diphtheria toxoid, and acellular pertussis vaccine, adsorbed Shai Leonard MD Work Phone: [facility] 09-15-2014 influenza virus vaccine, unspecified formulation Shai Leonard MD Work Phone: [facility] NEGATED: Highlighted row has not occurred!01-09-2024 influenza, seasonal, injectable Patient objection Dr. Reg Hartman [facility] NEGATED: Highlighted row has not occurred!01-09-2024 Pneumococcal conjugate vaccine 20-valent (PCV20), polysaccharide [id number] conjugate, adjuvant, preservative free Patient objection Dr. Reg Hartman [facility] NEGATED: Highlighted row has not occurred!01-09-2024 SARS-COV-2 (COVID-19) vaccine, mRNA, spike protein, LNP, preservative free, 25 mcg/0.25 mL dose Patient objection Dr. Reg Hartman [facility] Payers Date Payer Category Payer Medicare HMO ANTHEM MEDIBLUE ESSENTIAL/PLUS/CONNECT/SNP HMO [id number] 2022 Medicare [id number] 2021 Unknown [id number] 2020 Medicaid [id number] 1.2.840.484386.1.13.385.2.7.3. [id number] 2020 Medicaid 1.2.840.463549. 1.13.172.2.7.3. 192369.315 2020 Medicare [id number] 1.2.840.501494.1.13.385.2.7.3. 212137.315 2020 Medicare 1.2.840.002645. 1.13.172.2.7.3. 787951.315 2020 Medicaid [id number] 2020 Medicare [id number] 2013 Medicaid [id number] 1.2.840.740689.1.13.385.2.7.3. [id number] 2013 Medicaid [id number] 1.2.840.918317.1.13.385.2.7.3. 807130.315 2013 Medicaid [id number] 2.16.840.1.210697.3.249.13 1966 Unknown [id number] 2.16.840.1.944345.3.579.2.174 1966 Unknown [id number] 2.16.840.1.060320.3.579.2.174 1966 Unknown [id number] 2.16.840.1.887665.3.579.2.174 1966 Unknown [id number] 2.16.840.1.262757.3.579.2.903 1966 Unknown [id number] 2.16.840.1.160046.3.579.2.903 1966 Unknown [id number] 2.16.840.1.940853.3.579.2.903 1966 Unknown [id number] 2.16.840.1.412288.3.579.2.903 1966 Unknown [id number] 2.16.840.1.281919.3.579.2.174 1966 Unknown [id number] 2.16.840.1.720808.3.579.2.983 1966 Unknown [id number] 2.16.840.1.445595.3.579.2.983 1966 Unknown [id number] 2.16.840.1.812590.3.579.2.983 1966 Unknown [id number] 2.16.840.1.131337.3.579.2.983 1966 Unknown [id number] 2.16.840.1.790259.3.579.2.983 1966 Unknown [id number] 2.16.840.1.916805.3.579.2.983 1966 Unknown [id number] 2.16.840.1.896293.3.579.2.983 1966 Unknown [id number] 2.16.840.1.911411.3.579.2.983 1966 Unknown [id number] 2.16.840.1.652295.3.579.2.983 1966 Unknown [id number] 2.16.840.1.335124.3.579.2.983 1966 Unknown [id number] 2.16.840.1.292615.3.579.2.983 1966 Unknown [id number] 2.16.840.1.007988.3.579.2.983 1966 Unknown [id number] 2.16.840.1.128797.3.579.2.983 1966 Unknown [id number] 2.16.840.1.903284.3.579.2.983 1966 Unknown [id number] 2.16.840.1.529066.3.579.2.983 1966 Unknown [id number] 2.16.840.1.400308.3.579.2.983 1966 Unknown [id number] 2.16.840.1.262743.3.579.2.983 1966 Unknown [id number] 2.16.840.1.979363.3.579.2.983 1966 Unknown [id number] 2.16.840.1.085727.3.579.2.983 1966 Unknown [id number] 2.16.840.1.164803.3.579.2.983 1966 Unknown [id number] 2.16.840.1.670513.3.579.2.983 1966 Unknown [id number] 2.16.840.1.854510.3.579.2.983 1966 Unknown [id number] 2.16.840.1.745389.3.579.2.983 1966 Unknown [id number] 2.16.840.1.573612.3.579.2.983 1966 Unknown [id number] 2.16.840.1.258431.3.579.2.983 1966 Unknown [id number] 2.16.840.1.974321.3.579.2.983 1966 Unknown [id number] 2.16.840.1.203804.3.579.2.983 1966 Unknown [id number] 2.16.840.1.445850.3.579.2.983 1966 Unknown [id number] 2.16.840.1.030864.3.579.2.983 1966 Unknown [id number] 2.16.840.1.293751.3.579.2.983 1966 Unknown [id number] 2.16.840.1.442454.3.579.2.983 1966 Unknown [id number] 2.16.840.1.723800.3.579.2.983 1966 Unknown [id number] 2.16.840.1.833609.3.579.2. 1966 Unknown [id number] 2.16.840.1.984188.3.579.2.983 1966 Unknown [id number] 2.16.840.1.311200.3.579.2.98 1966 Unknown [id number] 2.16.840.1.145920.3.579.2.983 1966 Unknown [id number] 2.16.840.1.401547.3.579.2.3 1966 Unknown [id number] 2.16.840.1.751392.3.579.2.983 1966 Unknown [id number] 2.16.840.1.428803.3.579.2.983 1966 Unknown [id number] 2.16.840.1.295315.3.579.2.983 1966 Unknown [id number] 2.16.840.1.768745.3.579.2.983 1966 Unknown [id number] 2.16.840.1.611711.3.579.2.983 1966 Unknown [id number] 2.16.840.1.725951.3.579.2.983 1966 Unknown [id number] 2.16.840.1.766994.3.579.2.983 1966 Unknown [id number] 2.16.840.1.229940.3.579.2 1966 Unknown [id number] 2.16.840.1.759197.3.579.2.90 1966 Unknown [id number] 2.16.840.1.113371.3.579.290 1966 Unknown [id number] 2.16.840.1.767163.3.579.290 1966 Unknown [id number] 2.16.840.1.621786.3.579.298 1966 Unknown [id number] 2.16.840.1.989238.3.579.2 1966 Unknown [id number] 2.16.840.1.985690.3.579.2 1966 Unknown [id number] 2.16.840.1.674947.3.579.2.900 1966 Unknown [id number] 2.16.840.1.160708.3.579.2900 1966 Unknown [id number] 2.16.840.1.304303.3.579.290 1966 Unknown [id number] 2.16.840.1.599852.3.579.2 1966 Unknown [id number] 2.16.840.1.218958.3.579.2.90 1966 Unknown [id number] 2.16.840.1.411822.3.579.2 1966 Unknown [id number] 2.16.840.1.516050.3.579.2.90 1966 Unknown [id number] 2.16.840.1.096976.3.579.2903 1966 Unknown [id number] 2.16.840.1.201814.3.579.2.903 1966 Unknown [id number] 2.16.840.1.240250.3.579.2.903 1966 Unknown [id number] 2.16.840.1.710291.3.579.2.90 1966 Unknown [id number] 2.16.840.1.562209.3.579.2.90 1966 Unknown [id number] 2.16.840.1.046905.3.579.2. 1966 Unknown [id number] 2.16.840.1.169906.3.579.2.90 1966 Unknown [id number] 2.16.840.1.256209.3.579.2.90 1966 Unknown [id number] 2.16.840.1.163808.3.579.2.903 1966 Unknown [id number] 2.16.840.1.638109.3.579.2. 1966 Unknown [id number] 2.16.840.1.031186.3.579.2.903 1966 Unknown [id number] 2.16.840.1.640751.3.579.2.90 1966 Unknown [id number] 2.16.840.1.259697.3.579.2.903 Social History Date Type Detail Facility Start: 01-25-2017 End: 01-02-2025 Tobacco smoking status KSIS Former smoker [facility] Start: 08-22-1984 End: 09-27-2011 History of tobacco use Current smoker [facility] Phone: History of tobacco use [employer] Phone: Start: 1965 Sex Assigned At Not on file [facility] Phone: Start: 08-22-1984 End: 08-22-2007 History of tobacco use Cigarette Smoker [facility] Start: 04-05-2019 End: 05-12-2025 Alcohol intake Not Currently [facility] Start: 09-21-2019 End: 01-15-2021 Alcohol intake Current non-drinker of alcohol (finding) [facility] Start: 09-27-2021 End: 03-16-2023 Exposure to SARS-CoV-2 (event) Not sure [facility] Start: 10-30-2019 End: 06-20-2025 Alcohol intake Ex-drinker (finding) [facility] History of tobacco use Snuff User [facility] [place] [place] Start: 04-22-2020 End: 01-02-2025 Tobacco use and exposure Current user [facility] Start: 07-07-2020 End: 12-03-2020 History SDOH Alcohol Frequency 1 [facility] Exposure to SARS-CoV -2 (event) Unable to assess [facility] Start: 05-03-2022 History SDOH Alcohol Comment quit drinking aprox 2011 [facility] [employer] Work Phone: Start: 02-08-2023 End: 05-12-2025 History of Social function [facility] Start: 05-17-2017 Gender identity Identifies as male gender (finding) [facility] How often to you hav e a drink containing alcohol? Never [facility] Average Number of Drinks Not on file [facility] Start: 06-14-2018 Sexual orientation Heterosexual (finding) [facility] History of tobacco use Passive smoker [...] the mortgage or rent on time? No [facility] Start: 05-22-2024 Unknown if ever smoked Fariba Summers [employer] (I/We) worried wheth er (my/our) food would run out before (I/we) got money to buy more. Sometimes true [facility] Medical Equipment Procedure Code Equipment Code Equipment Origin al Text Equipment Identifier Dates Baseplate Sz5 Ti bial Tritanium Triathlon - [id number] ()[id number] [id number] , [id number]_[facility] FDA Start: 01-08-2020 Insert Sz5-10 Ti bial Cr X3 Triathlon [id number] - [id number] ()[id number] [id number], [id number]_[facility] FDA Start: 01-08-2020 Component Sz5 Fe m Cr Rt Cementless Beaded W/Pa Triathlon - [id number] ()[id number] [id number], [id number]_imp FDA Start: 01-08-2020 ()[id number] [id number], [id number]_[facility] FDA Start: 01-08-2020 Goals Date Patient [...] and elevating legs to better manage edema. 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 Reduce LE edema as demontrated [...] and elevating legs to better manage edema. 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 Reduce LE edema as demontrated [...] Date & Type Note Facility 07-04-2025 Note [facility] 07-03-2025 Note [facility] 07-03-2025 Note [facility] 07-03-2025 Note [facility] 07-02-2025 Note [facility] 07-02-2025 [facility] CULTURE Culture in Progress GRAM STAIN RESULT Many WBC Many RBC No Organisms Seen [facility] Comment on above: Performed By: #### L [id number] ####[facility] [address] [place], [place] [address] Venancio Richardson M.D. [id number] 07-01-2025 Note CULTURE Culture in Progress GRAM STAIN RESULT Many WBC Many RBC No Organisms Seen [facility] Comment on above: Performed By: #### L [id number] ####[facility] [address] [place], [place] [address] Venancio Richardson M.D. [id number] 07-01-[address] [facility] 06-20-2025 Note At this point in [...] AUTHENTICATED BY SOFÍA DUKES, ON 06/21/2025 09:06:26 [facility] 05-30-2025 Note Carmen comes in today [...] AUTHENTICATED BY SOFÍA DUKES, ON 05/31/2025 17:10:19 [facility] 05-16-2025 Progress note Formatting of t his note might be different from the original. This nurse reviews discharge instructions with the patient. Patient states understanding. No further education is needed. Medications patient brought home that were sent to pharmacy have been returned by Medina MENDOZA [facility] 05-16-2025 Miscellaneous Notes This nurse reviews discharge instructions with the patient. Patient states understanding. No further education is needed. Medications patient brought home that were sent to pharmacy have been returned by Medina MENDOZA [id number] ENCOUNTER FOR HOME MEDICAL EQUIPMENT PATIENT: Carmen Gilman : 1965 Statement of Care: I certify that Carmen Gilman is under my care and that I, a Nurse Practitioner, had a [id number] encounter with this patient today to evaluate and discuss the need for home medical equipment. I certify that based on the findings of this evaluation, which included but was not limited to the [id number] requirements, the following home medical equipment is [...] 1965 (59 y.o.) Date of Service: 05/13/2025 [facility]: [id number] Procedure(s): INCISION AND DRAINAGE TOTAL KNEE Pre-Operative Diagnoses: * Right knee skin infection/abscess Post-Operative Diagnoses: * Same as Pre-Op Diagnosis Surgeons and Role: * Sofía Dukes MD - Primary Anesthesiologist: Bryson Kelley MD Anesthesiologist Juice Weigher: Veronica Knapp AA Marine Engine Machinist: Abigail Camejo Scrub Person: Patel Burns ST THERMOFORMING OPERATOR: Roseanna Oliveros RN Operative findings: see op [...] MD 05/13/2025 4:57 PM ATTENDING PHYSICIAN [facility] PRIMARY CARE PHYSICIAN ANI WORLEY [...] PACU without intraoperative complication. D 05/13/2025 17:01 [id number] 05/13/2025 17:45 MCB/MODL Wiliam Reddy may [...] Absence of physical injury Outcome: Partially Met [facility] EM[facility] ATTENDING NOTE: NAME: Carmen Gilman CSN: [id number] 59 y.o. ED Attestation: I have reviewed [...] unspecified cellulitis site documented in this encounter [facility] 05-16-[address] [facility] 05-16-2025 History of Present illness Narrative [...] do daily dressing changes. D 05/16/2025 13:36 [id number] T 05/16/2025 15:14 MCB/MODL Date: 05/16/2025 Time: 11:40 AM Patient Name: Carmen Gilman Date of : 1965 Discharge Disposition Update: Discussed patient with Kathleen Dunham CNP. Patient is ready for discharge. Patient was accepted by [facility] for home health care services. SW educated patient on his insurance coverage and requested equipment. Patient understood and stated that he would be okay without the bariatric walker and tub bench as he has a standard walker and tub bench at home. D/C Disposition: Home Health Care Services Final D/C Agency/Destination: [facility] Care Plan A: Home Health Care Services Plan A : Post Acute Patient Choice [facility] Transportation: Discharge Disposition: Regulatory Documentation: Physical Therapy PHYSICAL THERAPY TREATMENT NOTE Skilled Therapy Needs After Discharge Anticipate Resolution of Current Assessment Limitations Including: Pain, Mechanical Barriers Are crab steamer Therapy Services Needed After Discharge: Yes Intensity of crab steamer Therapy: 5 to 7 days per week (Discussed PT concerns with returning home alone/ home safety/fall prevention. Pt is refusing any short term inpt rehabilitation and states he will only be agreeable to home health PT services. Pt report ESTEBAN will help him as needed) Anticipated Duration of crab steamer Therapy: Duration 7 - 10 days PT [...] Stand by assist, with bilateral UE support Oracle Manufacturing Consultant - Standing Static: BUE, wheeled walker Standing Balance - Dynamic: Stand by assist, with bilateral UE support [employer] Consultant - Standing Dynamic: BUE, wheeled walker Loss of Balance- Standing Dynamic: (Unsteady throughout and declining to have FARM EQUIPMENT ENGINEER hold Gait belt.) Transfers Sit to Stand: Stand by assist (Patient rocking for momentum 4x for stand.) Bed to Chair: Stand by assist (to commode) [employer] Consultant: BUE, wheeled walker Skilled Intervention Provided: verbal cues, monitoring patient response with activity, patient education For: UE positioning, controlled descent, efficient movement, fall prevention, safety during functional tasks, safe use of AD and/or equipment, weight shifting Resulting in: decreased safety (Patient having no follow through with VC given for sequencing,Safety with AD management or for eccentric control for descent to chair. Patient ordering FARM EQUIPMENT ENGINEER to exit room before sitting on commode. Relationship Management Lead declining to leave until patient was safely [...] refusing to have gait belt donned but FARM EQUIPMENT ENGINEER encouraging for safety. PAtient requiring bed [...] PRN) Prior Level of Function Level of Sargent - Transfers/Ambulation/Mobility: Independent with functional transfers, Independent with household ambulation (ambulates in home and in community with cane;) Level of Sargent - ADLs: (ESTEBAN washes pt hair, legs and feet) Level of Sargent - Homemaking: (ESTEBAN performs tasks) Driving: Patient [...] 11:49 AM EDT ATTENDING PHYSICIAN TATA CHANDRA [facility] PRIMARY CARE PHYSICIAN ANI WORLEY CNP [...] weeks in the office. D 05/15/2025 17:23 [id number] T 05/15/2025 17:45 MCB/MODL Date: 05/15/2025 Time: [...] 1: [facility] Plan B: Assisted Facility Transportation: Discharge Disposition: Regulatory Documentation: [facility] PROGRESS NOTE Patient name: Carmen Gilman Date of : 1965 Assessment and plan Carmen Gilman is a 59 y.o. male patient of Ani Worley CNP with history of Anxiety, Arrhythmia, Arthritis, COPD, DM, HTN, Left Knee Pain, Opioid Dependance, who presented to [facility] on 05/11/2025 with complaints of Rt Knee [...] and make adjustments as needed. Please use bTendo to call pharmacy or secure chat the [...] 05/12/25 125.5 kg (276 lb 10.8 oz) [place] body weight: 77.6 kg (171 lb 1.2 [...] Arthritis Asthma COPD (chronic obstructive pulmonary disease) ([facility]) Sometimes uses home O2 Diabetes ([facility]) Hypertension Knee pain, left Leg swelling Opioid dependence ([facility]) Secondary adrenal insufficiency 04/30/2022 left [...] LOWER LEG SPLIT THICKNESS SKIN GRAFT; Surgeon: Cecliia Gonzales DPM; Location: Main OR; Service: Podiatry [...] No Nutrition Related Allergies noted Cultural or Temple Dietary Needs :No Cultural or Temple Dietary needs noted Patient/family comments:s Difficulty Chewing [...] adj Kevan Palmer RD ATTENDING PHYSICIAN [facility] PRIMARY CARE PHYSICIAN ANI WORLEY [...] Further recommendations to follow. D 05/14/2025 13:24 [id number] 05/14/2025 13:42 MCB/MODL [facility] PRO[facility] Patient name: Carmen Gilman Date of : 1965 Assessment and plan Carmen Gilman is a 59 y.o. male patient of Ani Worley CNP with history of Anxiety, Arrhythmia, Arthritis, COPD, DM, HTN, Left Knee Pain, Opioid Dependance, who presented to [facility] on 05/11/2025 with complaints of Rt Knee [...] discoloration BLE Psych: normal mood and affect [facility] PRO[facility] Patient name: Carmen Gilman Date of : 1965 Assessment and plan Carmen Gilman is a 59 y.o. male patient of Ani Worley CNP with history of Anxiety, Arrhythmia, Arthritis, COPD, DM, HTN, Left Knee Pain, Opioid Dependance, who presented to [facility] on 05/11/2025 with complaints of Rt Knee [...] to Dose Antimicrobials Assessment / Plan: Carmen iGlman is a 59 y.o. male initiated on vancomycin for skin/soft tissue infection. Vancomycin goal AUC is 400-600 mcg h/mL. Current regimen will produce a predicted AUC of 565 mcg h/mL with trough of 15.6 mcg/mL. Pharmacy will continue to follow and make adjustments as needed. Please use bTendo to call pharmacy or secure chat the [...] 05/12/25 125.5 kg (276 lb 10.8 oz) [place] body weight: 77.6 kg (171 lb 1.2 [...] Personnel: Sorin Simons RPh,PharmD Contact: or Sameerera [facility] PROGRESS NOTE Patient name: Carmen Gilman Date of : 1965 Assessment and plan Carmen Gilman is a 59 y.o. male patient of Ani Worley CNP with history of Anxiety, Arrhythmia, Arthritis, COPD, DM, HTN, Left Knee Pain, Opioid Dependance, who presented to [facility] on 05/11/2025 with complaints of Rt Knee [...] and make adjustments as needed. Please use bTendo to call pharmacy or secure chat the [...] 1 Encounters: 05/09/25 120.2 kg (265 lb) [place] body weight: 77.6 kg (171 lb 1.2 oz) Adjusted ideal body weight: 94.6 kg (208 lb 10.3 oz) Patient Tmax (last 24 hours): 98 F Micro: pend Pharmacy Personnel: Yoly Birch RPh,PharmD Contact: or Sameerera documented in this encounter [facility] 05-16-2025 Hospital course Narrative [facility] DISCHARGE SUMMARY -- [facility] Carmen Gilman : 1965 Admitted: 05/11/2025 Discharge [...] Knee Pain, Opioid Dependance, who presented to [facility] on 05/11/2025 with complaints of Rt Knee [...] recommended rehab facility, patient refused and wants [facility] Encouraged and discussed importance of compliance Polysubstance [...] . Quantity: 84 tablet naloxone 4 mg/actuation [place] Commonly known as: NARCAN Administer 1 spray [...] Physician(s) Follow Up: OTHER - NOT IN [facility] [id number] Address: [address] [place] [address] Servicing Counties: [phone] Condition at Discharge: Stable Disposition: Home with Home Health I reviewed discharge recommendations with the patient in person. Patient instructions, including activity, were given to the patient/family at discharge. On day of discharge I saw Carmen Gilman and spent: > 30 minutes on discharge. Completed by: Kathleen Dunham CNP on 05/16/25, 11:34 AM documented in this encounter [facility] 05-16-2025 Progress note Formatting of t his note might be different from the original. [id number] ENCOUNTER FOR HOME MEDICAL EQUIPMENT PATIENT: Carmen Gilman : 1965 Statement of Care: I certify that Carmen Gilman is under my care and that I, a Nurse Practitioner, had a [id number] encounter with this patient today to evaluate and discuss the need for home medical equipment. I certify that based on the findings of this evaluation, which included but was not limited to the eumh-te-kwaa requirements, the following home medical equipment is medically necessary: Tub Bench and Bariatric Wheeled Walker for the treatment of mobility limitations to enable participation in mobility-related activities of daily living (MRADL) in the home. Based on the current evaluation, patient can safely use prescribed equipment to perform mobility-related activities of daily living (MRADL) in the home.. Signed by: Kathleen Dunham CNP on 05/16/2025 [facility] 05-16-2025 Progress note Formatting of t his note might be different from the original. Pt refused morning daily weight. [facility] 05-15-2025 Plan of care note [...] Absence of pressure injury Outcome: Partially Met [facility] 05-15-2025 Note [facility] al 05-15-2025 Consult note Associated Order (s): IP CONSULT TO HOME HEALTH HUB Date: 05/15/2025 Time: 3:58 PM Patient Name: Carmen Gilman Date of : 1965 Liaison received a [facility] consult for SN,PT,OT. Patient's agency choice is [facility] Name of [facility] agency: Pending / Accepted (if [facility], include region) [facility] Referrals sent to: (names of agencies) [facility] pending [facility] declined [facility] Infusion pharmacy: (name) Referral pending or accepted? For OPAT, TPN, or TF: (list) Referral order placed? Has script been sent? (Yes/no) n/a [facility] (orders) created for the following services: [or waiting for ____ (i.e wound care)] SN,PT,OT Verify demographics (residential address) [address] [place] [id number] What is the primary number to reach you? Who is your family physician/primary care physician? Ani Worley, PROCESS CAMERA OPERATOR Estimated Discharge Date (NATI): 05/16 If discharge needs change, please reach out to liaison assigned on treatment team as hub is not notified of new consults once team is following. Thank you. [facility] 05-15-2025 Consult note Associated Order (s): IP CONSULT TO [facility] Date: 05/15/2025 Time: 3:58 PM Patient Name: Carmen Gilman Date of : 1965 Liaison received a [facility] consult for SN,PT,OT. Patient's agency choice is [facility] Name of [facility] agency: Pending / Accepted (if [facility], include region) [facility] Referrals sent to: (names of agencies) [facility] pending [facility] -accepted Infusion pharmacy: (name) Referral pending or accepted? For OPAT, TPN, or TF: (list) Referral order placed? Has script been sent? (Yes/no) n/a [facility] (orders) created for the following services: [or waiting for ____ (i.e wound care)] SN,PT,OT Verify demographics (residential address) [address] [address] What is the primary number to reach you? Who is your family physician/primary care physician? Ani Worley, PROCESS CAMERA OPERATOR Estimated Discharge Date (NATI): 05/16 If discharge [...] Assessment Limitations Including: Pain, Mechanical Barriers Are crab steamer Therapy Services Needed After Discharge: Yes Intensity of crab steamer Therapy: 5 to 7 days per week (Discussed PT concerns with returning home alone/ home safety/fall prevention. Pt is refusing any short term inpt rehabilitation and states he will only be agreeable to home health PT services. Pt report ESTEBAN will help him as needed) Anticipated Duration of crab steamer Therapy: Duration 7 - 10 days PT [...] assist, with bilateral UE support, with device [employer] Consultant - Standing Static: BUE, wheeled walker Standing Balance - Dynamic: Stand by assist, with bilateral UE support, with device [employer] Consultant - Standing Dynamic: BUE, wheeled walker Loss [...] assist Stand Pivot Transfers: Stand by assist [employer] Consultant: BUE, wheeled walker Gait/Locomotion Gait Assistance: Stand [...] PRN) Prior Level of Function Level of Sargent - Transfers/Ambulation/Mobility: Independent with functional transfers, Independent with household ambulation (ambulates in home and in community with cane;) Level of Sargent - ADLs: (ESTEBAN washes pt hair, legs and feet) Level of [place] - Homemaking: (ESTEBAN performs tasks) Driving: Patient [...] Arthritis Asthma COPD (chronic obstructive pulmonary disease) ([facility]) Sometimes uses home O2 Diabetes (HCC) Hypertension Knee pain, left Leg swelling Opioid dependence ([facility]) Secondary adrenal insufficiency 04/30/2022 left AMA 04/30/22 without treatment Past Surgical History: Procedure Laterality Date APPENDECTOMY ARTHROPLASTY KNEE TOTAL ROBOTIC ASSISTED Right 01/08/2020 Procedure: Right Total Knee Replacement Robotic; Surgeon: Sofía Dkues MD; Location: Main OR; Service: Ortho-Robotics DEBRIDEMENT [...] role. Patient was just recently discharged from [facility] on 04/05/25 to [facility]. Patient signed himself out AMA on [...] A : Post Acute Patient Choice 1: [facility] Health Plan B: Assisted Facility Transportation Assessment and Background Information: Family [...] Caregiver Assessment: SDOH: ATTENDING PHYSICIAN TATA CHANDRA [facility] PRIMARY CARE PHYSICIAN ANI WORLEY CNP [...] room debridement on 05/13/2025. D 05/12/2025 09:47 [id number] 05/12/2025 10:17 MCB/MODL documented in this encounter [facility] 05-15-2025 Consult note Formatting of [...] Assessment Limitations Including: Pain, Mechanical Barriers Are crab steamer Therapy Services Needed After Discharge: Yes Intensity of crab steamer Therapy: 5 to 7 days per week (Discussed PT concerns with returning home alone/ home safety/fall prevention. Pt is refusing any short term inpt rehabilitation and states he will only be agreeable to home health PT services. Pt report ESTEBAN will help him as needed) Anticipated Duration of crab steamer Therapy: Duration 7 - 10 days PT [...] assist, with bilateral UE support, with device [employer] Consultant - Standing Static: BUE, wheeled walker Standing Balance - Dynamic: Stand by assist, with bilateral UE support, with device [employer] Consultant - Standing Dynamic: BUE, wheeled walker Loss [...] assist Stand Pivot Transfers: Stand by assist [employer] Consultant: BUE, wheeled walker Gait/Locomotion Gait Assistance: Stand [...] PRN) Prior Level of Function Level of Sargent - Transfers/Ambulation/Mobility: Independent with functional transfers, Independent with household ambulation (ambulates in home and in community with cane;) Level of Sargent - ADLs: (ESTEBAN washes pt hair, legs and feet) Level of [place] - Homemaking: (ESTEBAN performs tasks) Driving: Patient [...] Arthritis Asthma COPD (chronic obstructive pulmonary disease) ([facility]) Sometimes uses home O2 Diabetes (HCC) Hypertension Knee pain, left Leg swelling Opioid dependence ([facility]) Secondary adrenal insufficiency 04/30/2022 left [...] hospital or completion of Physical Therapy Plan. [facility] 05[facility]15-2025 [facility] Plan of care note Problem: Actual [...] Absence of pressure injury Outcome: Partially Met [facility] 05-15-2025 Plan of care note Problem: Actual or potential alteration in health Goal: Absence of healthcare acquired conditions Outcome: Partially Met Goal: Knowledge of Interdisciplinary Plan of Care Outcome: Partially Met Goal: Knowledge of Enviroment Outcome: Partially Met [facility] 05-14-[address] [facility] 05-14-2025 Progress note Formatting of t his note might be different from the original. Pt refused insulin and cardiac/spo2 monitoring at this time. Pt educated about risks and states he will stop having as much sugar with meals. [employer] notified. T [facility] 05-14-[address] [facility] 05-14-2025 Note Formatting of this n ote might be different from the original. PHYSICAL THERAPY VISIT VARIANCE NOTE Attempted to see patient at this time, but unable secondary to: pt refused despite encouragement and education . Will follow up as appropriate. [facility] 05-14-2025 Note Formatting of this n ote might be different from the original. OCCUPATIONAL THERAPY VISIT VARIANCE NOTE Attempted to see patient at this time, but unable secondary to: Refused, reporting he wants to rest and try to get up later. Will follow up as appropriate. T [facility] 05-14-2025 Plan of care note [...] Absence of pressure injury Outcome: Partially Met [facility] 05-13-2025 Procedure note Brief Post Operative Note Patient Name: Carmen Gilman : 1965 (59 y.o.) Date of Service: 05/13/2025 [facility]: [id number] Procedure(s): INCISION AND DRAINAGE TOTAL KNEE Pre-Operative Diagnoses: * Right knee skin infection/abscess Post-Operative Diagnoses: * Same as Pre-Op Diagnosis Surgeons and Role: * Sofía Dukes MD - Primary Anesthesiologist: Bryson Kelley MD Anesthesiologist Juice Weigher: Veronica Knapp AA Marine Engine Machinist: Abigail Camejo Scrub Person: Patel Burns ST THERMOFORMING OPERATOR: Roseanna Oliveros RN Operative findings: see op [...] NO Sofía Dukes MD 05/13/2025 4:57 PM [facility] 05-13-2025 Procedure note ATTENDING PHYSICIAN [facility] PRIMARY CARE PHYSICIAN ANI WORLEY [...] PACU without intraoperative complication. D 05/13/2025 17:01 [id number] 05/13/2025 17:45 MCB/MODL [facility] 05-13-2025 Attending History and physical note INTERVAL HISTORY AND PHYSICAL Patient Name: Carmen Gilman Admit Date: [id number] MR #: [id number] : 1965 The H&P has been reviewed and the patient has been examined. I concur with the findings of the H&P. There are no significant changes. It is appropriate to proceed with the planned procedure. Sedation Plan: Per Anesthesia Provider Sofía Dukes MD 05/13/2025 3:39 PM Source Note - Sofía Dukes MD - 05/12/2025 9:43 AM EDT ATTENDING PHYSICIAN [facility]YSIC[facility] ANI WORLEY CNP ADMITTING [...] room debridement on 05/13/2025. D 05/12/2025 09:47 [id number] 05/12/2025 10:17 MCB/MODL [facility] 05-13-2025 History and physical note INTERVAL HISTORY AND PHYSICAL Patient Name: Carmen Gilman Admit Date: [id number] MR #: [id number] : 1965 The H&P has been reviewed and the patient has been examined. I concur with the findings of the H&P. There are no significant changes. It is appropriate to proceed with the planned procedure. Sedation Plan: Per Anesthesia Provider Sofía Dukes MD 05/13/2025 3:39 PM Source Note - Sofía Dukes MD - 05/12/2025 9:43 AM EDT ATTENDING PHYSICIAN [facility] PHYSICIAN ANI WORLEY CNP ADMITTING [...] room debridement on 05/13/2025. D 05/12/2025 09:47 [id number] 05/12/2025 10:17 MCB/MODL HMS HISTORY AND PHYSICAL -- [facility] Patient name: Carmen Gilman Date of : 1965 Admission date: 05/11/2025 Physicians: Ani Worley CNP (Family); No ref. provider found (Referring) Carmen Gilman is a 59 y.o. male patient of Ani Worley CNP with history of Anxiety, Arrhythmia, Arthritis, COPD, DM, HTN, Left Knee Pain, Opioid Dependance, who presented to [facility] on 05/11/2025 with complaints of Rt Knee [...] Arthritis Asthma COPD (chronic obstructive pulmonary disease) ([facility]) Sometimes uses home O2 Diabetes ([facility]) Hypertension Knee pain, left Leg swelling Opioid dependence ([facility]) Secondary adrenal insufficiency 04/30/2022 left [...] LEG SPLIT THICKNESS SKIN GRAFT; Surgeon: Cecilia Gonzaels DPM; Location: Main OR; Service: Podiatry THORACIC [...] Knee Pain, Opioid Dependance, who presented to [facility] on 05/11/2025 with complaints of Rt Knee [...] Consult Vascular: P documented in this encounter [facility] 05-13-2025 Consult note Associated Order (s): IP CONSULT TO CARE MANAGEMENT Date: 05/13/2025 Time: 2:44 PM Patient Name: Carmen Gilman Date of : 1965 Reason for Consult: Discharge Plan Discussion: Met with patient at bedside. Introduced role. Patient was just recently discharged from [facility] on 04/05/25 to [facility]. Patient signed himself out AMA on [...] A : Post Acute Patient Choice 1: [facility] Health Plan B: Assisted Facility Transportation Assessment and Background Information: Family [...] Current Home Equipment: Cane Caregiver Assessment: SDOH: [facility] 05-13-2025 Progress note Formatting of t his note might be different from the original. Wiliam Carrascoon may skip 9am dose of vancomycin due to intolerance with potassium. [facility] 05-13-2025 Katie Addison me 05-13-2025 Progress note Formatting of t his note might be different from the original. Patient refusing 0600 dose of IV Lasix stating "I was up all night pissing and now they want you to give me more? No, I am not taking that right now." Patient voices understanding the purpose of the Lasix when educated. T [facility] 05-13-2025 Progress note Formatting of t his note might be different from the original. Patient refusing daily weight at this time. [facility] 05-13-2025 Plan of care note Problem: Actual or potential alteration in health Goal: Absence of healthcare acquired conditions Outcome: Partially Met Goal: Knowledge of Interdisciplinary Plan of Care Outcome: Partially Met Goal: Knowledge of Enviroment Outcome: Partially Met T [facility] 05-12-2025 Plan of care note [...] to cope with pain Outcome: Partially Met [facility] 05-12-2025 Plan of care note Problem: [...] Absence of physical injury Outcome: Partially Met [facility] 05-12-2025 Consult note Formatting of th is note might be different from the original. ATTENDING PHYSICIAN [facility] PRIMARY CARE PHYSICIAN ANI WORLEY [...] room debridement on 05/13/2025. D 05/12/2025 09:47 [id number] 05/12/2025 10:17 MCB/MODL [facility] 05-12-2025 Emergency department Note Into [...] also educated on recent pain medication administration. [facility] 05-12-2025 Emergency department Note Into [...] denies further needs. Call light within reach. [facility] EM[facility]Y [facility] WHIT NOTE: NAME: Carmen Gilman CSN: [id number] 59 y.o. PCP: Ani Worley CNP History: [...] All other components within normal limits Narrative: [facility] Laboratory Services has implemented the [...] Procedure Abnormality Status --------- ------ CBC Auto Differential[[id number]] Abnormal Final result Manual Differential[[id number]] Abnormal Final result CBC and Diff Morphology[[id number]] Abnormal Final result Please view results for [...] Chronic respiratory failure with hypoxia and hypercapnia ([facility]) 07/08/2020 Uncomplicated opioid dependence ([facility]) 07/08/2020 Atrial fibrillation with rapid ventricular response ([facility]) 07/08/2020 Obesity (BMI 30-39.9) 07/08/2020 Type 2 diabetes mellitus without complication, without long-term current use of insulin ([facility]) 07/08/2020 Mucopurulent chronic bronchitis ([facility]) 12/03/2020 Polysubstance abuse ([facility]) 06/03/2021 Leukocytosis 06/03/2021 Nondependent cocaine abuse ([facility]) 06/03/2021 Hypotension 04/20/2022 Acute pain of left hip 04/24/2022 Pain of left femur 04/24/[address] 04/25/2022 Alcoholic cirrhosis of liver with ascites ([facility]) 04/28/2022 Hematoma 05/17/2023 Thrombocytopenia 05/25/2023 Venous stasis dermatitis of both lower extremities 05/25/2023 Chronic pain 05/25/2023 Plantar ulcer of right foot ([facility]) 05/25/2023 Ulcer of left lower leg ([facility]) 05/25/2023 Infection of prosthetic right knee joint ([facility]) 06/09/2023 Adrenal insufficiency 06/12/2023 Foot infection 07/29/2023 Cellulitis 10/01/2023 Pancytopenia ([facility]) 10/12/2023 Chronic diastolic congestive heart failure (HCC) 10/12/2023 Acute heart failure with preserved ejection fraction (HFpEF) ([facility]) 07/02/2024 Acute exacerbation of chronic obstructive pulmonary disease (COPD) ([facility]) 10/16/2024 Pulmonary hypertension (HCC) 01/02/2025 [...] Knee pain, left Leg swelling Opioid dependence ([facility]) Secondary adrenal insufficiency 04/30/2022 ED [...] tingling to the feet. Patient admitted to [facility] admitting physicians for further management . Clinical Impression: 1. Leg pain 2. Open wound of right knee, leg, and ankle, initial encounter 3. Cellulitis, unspecified cellulitis site Disposition: ED Disposition ED Disposition Hospitalize Condition -- Comment Recommended Level of Care: Med Surg Phone call required?: Yes Camron Goyal Jr., PA-C, [facility] ED Advanced Practice Provider [facility] [1] Social History Socioeconomic [...] with Dr Dukes documented in this encounter [facility] 05-12-2025 Emergency department Note Rounded [...] emptied urinal and straightened up pt room. [facility] 05-12-2025 Physician Emergency department Note [facility] ATTENDING NOTE: NAME: Carmen Gilman CSN: [id number] 59 y.o. ED Attestation: I have reviewed [...] initial encounter 3. Cellulitis, unspecified cellulitis site [facility] Work Phone: 05-12-2025 Emergency department Note Snack provided at this time. [facility] 05-12-[address] [facility] 05-12-2025 Emergency department Note Report received from Nathaniel MENDOZA at bedside. Pt requesting a snack at this time. [facility] 05-12-2025 Emergency department Note Hourly rounding assessment completed on the patient. [x] Patient updated on plan of care [x] All comfort needs addressed [x] Patient updated on duration of visit All questions answered, patient denies further needs. Call light within reach. [facility] 05-12-2025 History and physical note [facility] [place] [facility] [place]ICAL -- [facility] Patient name: aCrmen Gilman Date of : 1965 Admission date: 05/11/2025 Physicians: Ani Worley CNP (Family); No ref. provider found (Referring) Carmen Gilman is a 59 y.o. male patient of Ani Worley CNP with history of Anxiety, Arrhythmia, Arthritis, COPD, DM, HTN, Left Knee Pain, Opioid Dependance, who presented to [facility] on 05/11/2025 with complaints of Rt Knee [...] Knee Pain, Opioid Dependance, who presented to [facility] on 05/11/2025 with complaints of Rt Knee [...] Tentative Plan OR Mon Consult Vascular: P [facility] 05-12-2025 Physician Emergency department Note [facility] EMERGENCY DEPARTMENT WHIT NOTE: NAME: Carmen Gilman CSN: [id number] 59 y.o. PCP: Ani Worley CNP History: [...] All other components within normal limits Narrative: [facility] Laboratory Services has implemented the [...] Procedure Abnormality Status --------- ------ CBC Auto Differential[[id number]] Abnormal Final result Manual Differential[[id number]] Abnormal Final result CBC and Diff Morphology[[id number]] Abnormal Final result Please view results for [...] Chronic respiratory failure with hypoxia and hypercapnia ([facility]) 07/08/2020 Uncomplicated opioid dependence ([facility]) 07/08/2020 Atrial fibrillation with rapid ventricular response ([facility]) 07/08/2020 Obesity (BMI 30-39.9) 07/08/2020 Type 2 diabetes mellitus without complication, without long-term current use of insulin ([facility]) 07/08/2020 Mucopurulent chronic bronchitis ([facility]) 12/03/2020 Polysubstance abuse ([facility]) 06/03/2021 Leukocytosis 06/03/2021 Nondependent cocaine abuse ([facility]) 06/03/2021 Hypotension 04/20/2022 Acute pain of left hip 04/24/2022 Pain of left femur 04/24/[address] 04/25/2022 Alcoholic cirrhosis of liver with ascites ([facility]) 04/28/2022 Hematoma 05/17/2023 Thrombocytopenia 05/25/2023 Venous stasis dermatitis of both lower extremities 05/25/2023 Chronic pain 05/25/2023 Plantar ulcer of right foot ([facility]) 05/25/2023 Ulcer of left lower leg (HCC) 05/25/2023 Infection of prosthetic right knee joint ([facility]) 06/09/2023 Adrenal insufficiency 06/12/2023 Foot infection 07/29/2023 Cellulitis 10/01/2023 Pancytopenia ([facility]) 10/12/2023 Chronic diastolic congestive heart failure ([facility]) 10/12/2023 Acute heart failure with preserved ejection fraction (HFpEF) ([facility]) 07/02/2024 Acute exacerbation of chronic obstructive pulmonary disease (COPD) ([facility]) 10/16/2024 Pulmonary hypertension ([facility]) 01/02/2025 Edema of both lower extremities 01/02/2025 Venous congestion 01/02/2025 MARLENE (acute kidney injury) 02/11/2025 Generalized weakness 04/02/2025 Resolved Ambulatory Problems Diagnosis Date Noted Open neck wound 01/26/2017 Toe dislocation, left, subsequent encounter 07/31/2018 Acute exacerbation of chronic obstructive pulmonary disease (COPD) ([facility]) 07/08/2020 Essential hypertension 07/08/2020 (HFpEF) heart failure with preserved ejection fraction ([facility]) 07/08/2020 COPD with acute exacerbation 06/03/2021 Acute hypoxemic respiratory failure ([facility]) 06/03/2021 Respiratory arrest ([facility]) 06/03/2021 Hypertension 06/03/2021 Acute hypercapnic respiratory failure ([facility]) 06/03/2021 Respiratory acidosis 06/03/2021 Hyperglycemia 06/03/2021 Marijuana abuse 06/03/2021 Unresponsiveness 09/30/2021 Fall 04/24/2022 Sepsis ([facility]) 04/24/2022 Bradycardia 04/27/2022 Cellulitis 03/24/2023 Traumatic hematoma 05/17/2023 Leg hematoma, right, initial encounter 05/20/2023 Venous ulcer ([facility]) 05/31/2023 Past Medical History: Diagnosis Date Anxiety Arrhythmia Arthritis Asthma COPD (chronic obstructive pulmonary disease) ([facility]) Diabetes ([facility]) Knee pain, left Leg swelling Opioid dependence ([facility]) Secondary adrenal insufficiency 04/30/2022 ED [...] 0.5 mg (0.5 mg Intravenous Given 05/11/25 0982) HYDROmorphone (DILAUDID) injection 0.5 mg (0.5 mg Intravenous Given 05/12/25 3146) After reviewing the items above, I did [...] tingling to the feet. Patient admitted to [facility] admitting physicians for further management . Clinical Impression: 1. Leg pain 2. Open wound of right knee, leg, and ankle, initial encounter 3. Cellulitis, unspecified cellulitis site Disposition: ED Disposition ED Disposition Hospitalize Condition -- Comment Recommended Level of Care: Med Surg Phone call required?: Yes Camron Goyal Jr., PA-C, PA-C ED Advanced Practice Provider [facility] EM[facility] [1] Social History Socioeconomic [...] Unknown Camron Goyal Jr., PA-C 05/12/25 0402 [facility] 05-12-2025 Emergency department Note Hourly rounding assessment completed on the patient. [x] Patient updated on plan of care [x] All comfort needs addressed [x] Patient updated on duration of visit All questions answered, patient denies further needs. Call light within reach. T [facility] 05-12-2025 Emergency department Note Pt is requesting pain meds [facility] 05-11-2025 Emergency department Note Bed: 19 Expected date: Expected time: Means of arrival: Comments: TR4 [facility] 05-11-2025 Emergency department Triage note Patient arrives via private car. Patient states he saw Dr Dukes on for right knee pain and that Dr told him to come to ED on Tuesday to be admitted for a procedure with Dr Dukes [facility] 05-09-2025 Note Addended by: RACHELLE PAIZ on: 05/09/2025 09:51 PM Modules accepted: Orders [facility] 05-09-2025 Miscellaneous Notes Addended by: RACHELLE COLLINS on: 05/09/2025 09:51 PM Modules accepted: Orders Addended by: RACHELLE COLLINS on: 05/09/2025 09:47 PM Modules accepted: Orders documented in this encounter [facility] 05-09-2025 Note Addended by: RACHELLE PAIZ on: 05/09/2025 09:47 PM Modules accepted: Orders [facility] 05-09-2025 Note Addended by: RACHELLE PAIZ on: 05/09/2025 09:47 PM Modules accepted: Orders [facility] 05-09-2025 Miscellaneous Notes Addended by: RACHELLE COLLINS on: 05/09/2025 09:47 PM Modules accepted: Orders documented in this encounter [facility] 05-09-2025 Note Carmen Gilman presents [...] AUTHENTICATED BY DANIEL HAMMER, ON 05/09/2025 21:46:51 [facility] 05-09-2025 History of Present illness Narrative [...] at the hospital. documented in this encounter [facility] 05-09-2025 History of Present illness [...] at the hospital. documented in this encounter [facility] 04-05-2025 Plan of care note [...] Goal: Absence of pressure injury Outcome: Met [facility] 04-05-2025 Miscellaneous Notes Problem: Actual [...] Met HMS Rapid Response Note Reason for STOCKBROKING DEALER Call: Unresponsiveness Objective BP (!) 181/75 Pulse [...] patient into bed, see flowsheet for vitals. STOCKBROKING DEALER arrived Labs ordered. Awaiting for results. Patient [...] will be completed by 04/09. Dietitian's Office [phone] Patient refusing urine drug screen. Informs nurse he does not want anything standing in his way of being admitted to the [facility]. States he is being discharged to facility tomorrow and that is the only reason he is here documented in this encounter [facility] 04-05-2025 History of Present illness Narrative Medical Transportation set up by [facility] per hospital request: Date: 04-05-25 Time: 3:00 pm Destination:[address] [address] Company: [employer] ([phone]) Special needs/equipment:Oxygen Truck Type: Ambulance Companies called:Roundtrip Transport request received and is being scheduled, trip information will follow as soon as the time is secured. [facility] [place] Patient Name: Carmen Gilman : 1965 Assessment and Plan Carmen Gilman is a 59 y.o. male patient of Ani Worley CNP with history of COPD, diabetes, hypertension, dyslipidemia, generalized anxiety disorder and opioid dependence presented to [facility] on 04/02/2025 with generalized weakness and inability [...] Expected Discharge Location: [facility] Quality Measures DVT Prophylaxis: lovenox [...] Per Dr. Jacobs, pt can discharge to [facility] today. Ambulance transport requested. CM to follow. Addendum 1355 Transport is set up for 1500 and form to floor. Treatment team updated. Ravinder, LAWRENCE, to update SNF. Pt voices no further questions/concerns/needs. D/C Disposition: Assisted Facility Final D/C Agency/Destination: [facility] Plan A: Assisted Facility Plan A : Post Acute Patient Choice 1: [facility] Plan A : Post Acute Patient Choice 2: [facility] Plan A : Post Acute Patient Choice 3: [facility] Plan A : Post Acute Patient Choice 4: [facility] Transportation: Transportation Type: Ambulance Discharge Disposition: ELOS Discussed with Patient / Family?: Yes Estimated Length of Stay (ELOS): 15 Precert Authorization Status: Pending HENS/PAS: PAS (DOCUMENT ID: [id number]) Reason for Choice: Patient/Family preference Regulatory Documentation: Spiritual Care Progress Note Completed by: Vinita Mitchell Person(s) Present During this Visit: Healthcare Provider Time Spent in Direct Patient Care: 5 Narrative: Attended daily medical rounds. Received updates from medical staff. Pastoral Care team will remain available to support patient and family PRN. 04/04/25 1128 Visit Background Visit With Healthcare Provider Visit By Staff Repeat Chief Visit Progression Other (Please Specify) (Did not participate; clinical rounds) Visit Requested By Repeat Chief Initiated Visit Source Repeat Chief Initiated Visit Type IDT Rounds Visit Circumstances and Events Routine Visit Visit Length (minutes) 5 Patient's Response to Pastoral Care Other (see comment) (Did not participate; clinical rounds) Visit Planning PRN Spiritual Assessment Not assessed during visit Temple Assessment Not assessed during this visit Family assessment provided? Not assessed during this visit Signature: Vinita Mitchell MDiv Staff Repeat Chief [facility] On-Call Repeat Chief /OurShelfera "On-Call Repeat Chief" She/Her/Hers Date: 04/04/2025 Time: 10:53 AM Patient Name: Carmen Gilman Date of : 1965 Discharge Disposition Update: [facility] and [place] declined pt. Referral to [facility] per pt and [facility] accepted. Precert started. CM to follow. Addendum 1315 PAS completed and precert still pending. CM to follow. D/C Disposition: Assisted Facility Final D/C Agency/Destination: [facility] Plan A: Assisted Facility Plan A : Post Acute Patient Choice 1: [facility] Plan A : Post Acute Patient Choice 2: [facility] Plan A : Post Acute Patient Choice 3: [facility] Plan A : Post Acute Patient Choice 4: [facility] Transportation: Discharge Disposition: Regulatory Documentation: Spiritual Care [...] With Patient Not Available Visit By Staff Repeat Chief Visit Progression Attempt Visit Requested By Repeat Chief Initiated Visit Source Repeat Chief Initiated Visit Type Inpatient;Rounding Visit Circumstances and Events Routine Visit Visit Length (minutes) 5 Patient's Response to Pastoral Care Timing of Visit Not Optimal. Visit Rescheduled Visit Planning PRN Spiritual Assessment Not assessed during visit Temple Assessment Not assessed during this visit Family assessment provided? Not assessed during this visit Signature: Vinita Mitchell MDiv Staff Repeat Chief [facility] On-Call Repeat Chief /Gu[place]o "On-Call Repeat Chief" She/Her/Hers [facility] [place] Patient Name: Carmen Gilman : 1965 Assessment and Plan Carmen Gilman is a 59 y.o. male patient of Ani Worley CNP with history of COPD, diabetes, hypertension, dyslipidemia, generalized anxiety disorder and opioid dependence presented to [facility] on 04/02/2025 with generalized weakness and inability [...] Expected Discharge Location: [facility] Quality Measures DVT Prophylaxis: lovenox [...] Visit With Healthcare Provider Visit By Staff Repeat Chief Visit Progression Other (Please Specify) (Clinical Rounds; did not participate) Visit Requested By Repeat Chief Initiated Visit Source Repeat Chief Initiated Visit Type IDT Rounds Visit Circumstances and Events Routine Visit Visit Length (minutes) 5 Patient's Response to Pastoral Care Other (see comment) (Clinical Rounds; did not participate) Visit Planning PRN Spiritual Assessment Not assessed during visit Temple Assessment Not assessed during this visit Family assessment provided? Not assessed during this visit Signature: Vinita Mitchell MDiv Staff Repeat Chief [facility] On-Call Repeat Chief /Vocera "On-Call Repeat Chief" She/Her/Hers [facility] PRO[facility] Patient Name: Carmen Gilman : 1965 Assessment and Plan Carmen Gilman is a 59 y.o. male patient of Ani Worley CNP with history of COPD, diabetes, hypertension, dyslipidemia, generalized anxiety disorder and opioid dependence presented to [facility] on 04/02/2025 with generalized weakness and inability [...] Expected Discharge Location: [facility] Quality Measures DVT Prophylaxis: lovenox [...] Date of : 1965 Discharge Disposition Update: [facility] discussed discharge plan with pt while in the ED and referral to [facility] pending. Pt from [facility] and recently left [facility] to follow. Transportation: ambulance Discharge Disposition: 04/02/25 1600 Patient Information Source of Information Chart Does Patient have a PCP? Yes [facility] Assisted Facility New Referral Pt. discharged from 02/21/25 to [facility]. Discharge diagnosis Acute metabolic encephalopathy, Right knee swelling, MARLENE 0 resolved, liver cirrhosis, T7-L 2 compressions fx., undifferentiate shock resolved. 03/19/25 discharge to home with [facility] SN, PT/OT services. During 04/02/25 RN visit pt. request transfer to SNF d/t weakness. Transported by EMS. Relays he needs "transition to the [facility]" for admission to [facility]. 1618 Phoned [facility] LM with admissions. 1637 [facility] phoned s/w Funmi discharged elected to utilize [facility]. Plan to admit. documented in this encounter [facility] 04-05-2025 Hospital course Narrative [facility] DIS[facility]GE SUMMARY -- [facility] Carmen Gilman : 1965 Admitted: 04/02/2025 Discharge [...] anxiety disorder and opioid dependence presented to [facility] on 04/02/2025 with generalized weakness and inability [...] Commonly known as: PROTONIX Physician(s) Follow Up: [facility] Address: [address] [place] [id number] Servicing Counties: [place] [phone] Condition at Discharge: Stable Disposition: SNF I reviewed discharge recommendations with the patient in person. Patient instructions, including activity, were given to the patient/family at discharge. On day of discharge I saw Carmen Gilman and spent: > 30 minutes on discharge. Completed by: Kanchan Jacobs MD on 04/05/25, 11:48 AM documented in this encounter [facility] 04-05-[address] [facility] 04-05-2025 Hospital Discharge instructions Rachelle Yang RN - 04/05/2025 9:38 AM EDT Your estimated length of stay at [facility] is 15 days. documented in this encounter [facility] 04-05-2025 Progress note Formatting of t his note might be different from the original. HMS Rapid Response Note Reason for STOCKBROKING DEALER Call: Unresponsiveness Objective BP (!) 181/75 Pulse [...] therapies to prevent imminent clinical deterioration. T [facility] Work Phone: 04-04-2025 Progress note [...] patient into bed, see flowsheet for vitals. STOCKBROKING DEALER arrived Labs ordered. Awaiting for results. Patient transferred to room 2000 for his safety. [facility] 04-04-2025 [facility] Consult note Formatting of th is note is different from the original. Physical Therapy PHYSICAL THERAPY EVALUATION and TREATMENT NOTE Dx: generalized weakness, inability to ambulate, COPD, chronic R knee pain, hx of T7-L2 compression fracture PHYSICAL THERAPY EVALUATION Skilled Therapy Needs After Discharge Anticipate Resolution of Current Assessment Limitations Including: Pain, Mechanical Barriers, Social Support Are crab steamer Therapy Services Needed After Discharge: Yes Intensity of crab steamer Therapy: Up to 5 days per week Anticipated Duration of crab steamer Therapy: > 30 days PT DME Recommendation: [...] Standing Balance - Static: Contact guard assist [employer] Consultant - Standing Static: wheeled walker Standing Balance - Dynamic: Minimal assist [employer] Consultant - Standing Dynamic: wheeled walker Loss of Balance- Standing Dynamic: intermittent Strength Assessment Strength RLE RLE Overall Strength: 4-/5 Strength LLE LLE Overall Strength: 4-/5 Bed Mobility Supine to Sit: (bed mobility not observed - pt sitting EOB prior to and after session) Transfers Sit to Stand: Minimal assist (from EOB elevated surface height) Stand Pivot Transfers: Minimal assist [employer] Consultant: wheeled walker Additional Transfer Trial 2: Yes Sit to Stand Trial 2: Moderate assist (from lower height chair) Stand Pivot Transfers Trial 2: Moderate assist [employer] Consultant Trial 2: wheeled walker Gait/Locomotion Gait Assistance: [...] From: Family (son in law) Level of Sargent - Transfers/Ambulation/Mobility: Needs wheelchair mobility assistance (able to push self for short distance but needs assistance for longer distances) Level of [place]ent - ADLs: Independent Level of Sargent - Homemaking: Needs assistance PHYSICAL THERAPY TREATMENT [...] Arthritis Asthma COPD (chronic obstructive pulmonary disease) ([facility]) Diabetes ([facility]) Hypertension Knee pain, left Leg swelling Opioid dependence ([facility]) Secondary adrenal insufficiency 04/30/2022 left [...] hospital or completion of Physical Therapy Plan. [facility] 04-03-2025 Consult note Formatting of th is note is different from the original. Physical Therapy PHYSICAL THERAPY EVALUATION and TREATMENT NOTE Dx: generalized weakness, inability to ambulate, COPD, chronic R knee pain, hx of T7-L2 compression fracture PHYSICAL THERAPY EVALUATION Skilled Therapy Needs After Discharge Anticipate Resolution of Current Assessment Limitations Including: Pain, Mechanical Barriers, Social Support Are crab steamer Therapy Services Needed After Discharge: Yes Intensity of crab steamer Therapy: Up to 5 days per week Anticipated Duration of crab steamer Therapy: > 30 days PT DME Recommendation: [...] Standing Balance - Static: Contact guard assist [employer] Consultant - Standing Static: wheeled walker Standing Balance - Dynamic: Minimal assist [employer] Consultant - Standing Dynamic: wheeled walker Loss of Balance- Standing Dynamic: intermittent Strength Assessment Strength RLE RLE Overall Strength: 4-/5 Strength LLE LLE Overall Strength: 4-/5 Bed Mobility Supine to Sit: (bed mobility not observed - pt sitting EOB prior to and after session) Transfers Sit to Stand: Minimal assist (from EOB elevated surface height) Stand Pivot Transfers: Minimal assist [employer] Consultant: wheeled walker Additional Transfer Trial 2: Yes Sit to Stand Trial 2: Moderate assist (from lower height chair) Stand Pivot Transfers Trial 2: Moderate assist [employer] Consultant Trial 2: wheeled walker Gait/Locomotion Gait Assistance: [...] From: Family (son in law) Level of Sargent - Transfers/Ambulation/Mobility: Needs wheelchair mobility assistance (able to push self for short distance but needs assistance for longer distances) Level of Sargent - ADLs: Independent Level of Sargent - Homemaking: Needs assistance PHYSICAL THERAPY TREATMENT [...] Arthritis Asthma COPD (chronic obstructive pulmonary disease) ([facility]) Diabetes ([facility]) Hypertension Knee pain, left Leg swelling Opioid dependence ([facility]) Secondary adrenal insufficiency 04/30/2022 left [...] Referral pending to [facility]. Pt from [facility] apartments with [facility] and recently left [facility]. Pt states takes cab or has friends for transportation. Pt was on subutex but does not feel it's working and states just wants some other pain meds. CM to follow. Addendum 1458 [facility] declined and further referrals pending to [facility] and [facility]. CM to follow. Discharge Plan: Plan A: Assisted Facility Plan A : Post Acute Patient Choice 1: [facility] Plan A : Post Acute Patient Choice 2: [facility] Plan A : Post Acute Patient Choice 3: [facility] Plan A : Post Acute Patient Choice 4: [facility] Transportation Assessment and Background Information: Family aware [...] Caregiver Assessment: SDOH: documented in this encounter [facility] 04-03-2025 Plan of care note [...] Nunez MD at 04/03/2025 9:01 PM EDT [facility] 04-03-2025 Consult note Associated Order (s): IP CONSULT TO CARE MANAGEMENT Date: 04/03/2025 Time: 2:52 PM Patient Name: Carmen Gilman Date of : 1965 Reason for Consult: Discharge Plan Discussion: See VCM note from 04/02/25. Pt states difficulty caring for self at home. Referral pending to [facility]. Pt from [facility] apartments with [facility] and recently left [facility]. Pt states takes cab or has friends for transportation. Pt was on subutex but does not feel it's working and states just wants some other pain meds. CM to follow. Addendum 1455 [facility] declined and further referrals pending to [facility] and [facility]. [facility]. CM to follow. Discharge Plan: Plan A: Assisted Facility Plan A : Post Acute Patient Choice 1: [facility] Plan A : Post Acute Patient Choice 2: [facility] Plan A : Post Acute Patient Choice 3: [facility] Plan A : Post Acute Patient Choice 4: [facility] Transportation Assessment and Background Information: Family aware [...] staff Assistance Needed: yes Caregiver Assessment: SDOH: [facility] 04-03-2025 Progress note Formatting of [...] will be completed by 04/09. Dietitian's Office [phone] [facility] 04-03-[address] [facility] 04-02-2025 Progress note Formatting of t his note might be different from the original. Patient refusing urine drug screen. Informs nurse he does not want anything standing in his way of being admitted to the [facility]. States he is being discharged to facility tomorrow and that is the only reason he is here [facility] 04-02-2025 History and physical note [facility]ISTORY [facility] PHYSICAL -- [facility] Patient Name: Carmen Gilman : 1965 MR #: [id number] Admit Date: 04/02/2025 Physicians: Ani Worley CNP (Family); No ref. provider found (Referring) Carmen Gilman is a 59 y.o. male patient of Ani Worley CNP with history of COPD, diabetes, hypertension, dyslipidemia, generalized anxiety disorder and opioid dependence presented to [facility] on 04/02/2025 with generalized weakness and inability [...] exposure: Current Smokeless Tobacco Current Types: Chew [facility] 04-02-2025 History and physical note [facility] H[facility]ORY [facility] PHYSICAL -- [facility] Patient Name: Carmen Gilman : 1965 MR #: [id number] Admit Date: 04/02/2025 Physicians: Ani Worley CNP (Family); No ref. provider found (Referring) Carmen Gilman is a 59 y.o. male patient of Ani Worley CNP with history of COPD, diabetes, hypertension, dyslipidemia, generalized anxiety disorder and opioid dependence presented to [facility] on 04/02/2025 with generalized weakness and inability [...] SKIN GRAFT; Surgeon: Cecilia Gonzales DPM; Location: [facility] OR; Service: Podiatry THORACIC DUCT LIGATION 01/15/2017 [...] Current Types: Chew documented in this encounter [facility] 04-02-2025 Emergency department Note Patient given a urinal at this time. [facility] 04-02-2025 Emergency department Note Patient [...] [facility], lives at home by himself and has [...] arrival: Comments: R1 documented in this encounter [facility] 04-02-2025 Emergency department Note Patient given menu at this time [facility] 04-02-2025 Emergency department Note Hourly rounding assessment completed on the patient. [x] Patient updated on plan of care [x] All comfort needs addressed [x] Patient updated on duration of visit All questions answered, patient denies further needs. Call light within reach. [facility] 04-02-2025 Emergency department Note Hourly rounding assessment completed on the patient. [x] Patient updated on plan of care [x] All comfort needs addressed [x] Patient updated on duration of visit All questions answered, patient denies further needs. Call light within reach. [facility] 04-02-2025 Emergency department Triage note Pt came from home, brought by EMS. [facility], lives at home by himself and has not been able to get around the house more than usual the last couple days, PMHx: renal failure, HTN, COPD. Pt presents with chronic b/l knee and back pain, denies fall, reports was unable to get out of chair this morning and needs placement "I can't get around at home anymore". Pt A&OX4. [facility] 04-02-2025 Emergency department Note Bed: 40 Expected date: Expected time: Means of arrival: Comments: R1 [facility] 02-21-2025 Note [facility] 02-21-2025 Note [facility] 02-20-2025 Note [facility] 02-20-2025 Note [facility] 02-19-2025 Note [facility] 02-18-2025 Note [facility] 02-18-2025 Note [facility] 02-17-2025 Note [facility] 02-16-2025 Note [facility] 02-16-2025 Note [facility] 02-15-2025 Note [facility] 02-15-2025 Note [facility] 02-15-2025 Note [facility] 02-14-2025 Note [facility] 02-14-2025 Note [facility] 02-13-2025 Note [facility] 02-13-[address] [facility] 02-12-[address] [facility] 01-04-[address] [facility] 01-04-2025 History of Present illness Narrative Follow up documented in this encounter [facility] 01-04-2025 History of Present illness [...] that was prescribed to him by his PROCESS CAMERA OPERATOR due to his right knee swelling. No [...] intact. Protective sensation is diminished using the [place] Jared filament. Dermatologic: See images below Musculoskeletal: [...] Last Year: No documented in this encounter [facility] 01-02-2025 Instructions Traci Sood MA - 01/02/2025 2:07 PM EDT How to contact your Care Team: Providers: DO Jim Boudreaux III, CNP Jill Bender, PA Nurse: Margot Gallegos To reschedule office appointments call Scheduling [phone] In case of an emergency please call 911. When in need of refills please call the phone number listed above. Please include medication name, pharmacy name and specify 30 or 90 day supply Please check with your pharmacy within 24 hours of your request for refill. You must follow up as directed to continue current refills. Thank you! documented in this encounter [facility] 01-02-2025 Note Assessment & Plan: [...] Arthritis Asthma COPD (chronic obstructive pulmonary disease) ([facility]) Diabetes ([facility]) Hypertension Knee pain, left Leg swelling Opioid dependence ([facility]) Secondary adrenal insufficiency 04/30/2022 left [...] and wheezing. En (more content not included)... [facility] 01-02-2025 History of Present illness Narrative [...] status. He does state that they put Etddy wrap's on his legs, but he does [...] a day . naloxone (NARCAN) 4 mg/actuation Orwell Administer 1 spray into one nostril for [...] No Known Allergies documented in this encounter [facility] 12-24-2024 History of Present illness Narrative Placed call to Ani Worley [facility] office to clarify referral and patient's needs in our practice. Provided fax number to send necessary documentation. documented in this encounter [facility] 12-21-2024 Katie Rogel [facility] 12-21-2024 History of Present illness Narrative Associated [...] was tolerated well documented in this encounter [facility] 12-21-2024 History of Present illness [...] intact. Protective sensation is diminished using the [place] Jared filament. Dermatologic: See images below Musculoskeletal: [...] Last Year: No documented in this encounter [facility] 12-21-2024 Instructions Jeri Dillon RN - 12/21/2024 2:13 PM EDT Dakin wet-to-dry to the medial foot wound, 4 x 4, double layer Tubigrip on the right Tubigrip on the left Frequency: Daily Follow up: 1 week(s) documented in this encounter [facility] 11-23-2024 Note Rosa Ferreira R N 11/23/2024 3:19 PM Multi-layer Compression Wrap Procedure Performed for: Bilat legs for edema control Performed by:: Clinician haven Procedural Pain: 0 Bandage Type: Compression Compression Layers: Multi-layer Compression Product Type: Profore Regular Dressing Applied: No Extremity Location: Below Knee [facility] 11-23-2024 History of Present illness [...] intact. Protective sensation is diminished using the [place] Jared filament. Dermatologic: See images below Musculoskeletal: [...] Last Year: No documented in this encounter [facility] 11-23-2024 Instructions Rosa Ferreira RN - 11/23/2024 2:17 PM EDT Profore bilaterally Frequency: Keep clean and dry Follow up: 1 week(s) documented in this encounter [facility] 11-23-2024 Note [facility] 11-16-2024 Note [facility] 11-09-2024 Note [facility] 10-24-2024 History of Present illness [...] w/ [facility] on discharge. CM to follow. [facility] PRO[facility] NOTE Assessment and Plan Carmen Gilman [...] Patient is wanting to be discharged to [facility], altho he reports that he feels worse [...] skin breakdown Psych: normal mood and affect [facility] PROGRESS NOTE Assessment and Plan Carmen Gilman [...] in Direct Patient Care: 5 Narrative: This greenkeeper attended daily medical rounds. Received updates from medical staff. Pastoral Care team will remain available to support patient and family PRN. 10/22/24 1130 Visit Background Visit With Healthcare Provider Visit By Staff Repeat Chief Visit Progression Other (Please Specify) (Did not participate; clincial rounds) Visit Requested By Repeat Chief Initiated Visit Source Repeat Chief Initiated Visit Type IDT Rounds Visit Circumstances and Events Routine Visit Visit Length (minutes) 5 Patient's Response to Pastoral Care Other (see comment) (Did not participate; clincial rounds) Visit Planning PRN Spiritual Assessment Not assessed during visit Temple Assessment Not assessed during this visit Family assessment provided? Not assessed during this visit Signature: Vinita Mitchell MDiv Staff Repeat Chief [facility] On-Call Repeat Chief /Guicho "On-Call Repeat Chief" She/Her/Hers Care Management Progress Note Date: 10/22/2024 [...] wt gain recently per records. 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 Good intakes and appetite here and 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 Difficulty Chewing or Swallowing: No Fluid [...] Home Medications Reviewed: Yes Nutrient Depleting Medications: FARM EQUIPMENT ENGINEER: lasix, protonix, prednisone Scheduled Meds: ammonium [...] Inpatient Progress Note 10/22/2024 ALEXEY Radford DPM [facility] Patient: Carmen Gilman Date of : 1965 (59 y.o.) PCP: Ani Worley, PROCESS CAMERA OPERATOR ASSESSMENT Bilateral lower extremity venous stasis with [...] care needs per inpatient cm. Name of [facility] agency: Pending / Accepted (if [facility], include region) Accepted- [facility] (orders) created for the following services: [or waiting for ____ (i.e wound care)] Yes- SN,PT,OT,BUNCH MAKER HAND Verify demographics (residential address) [address] [place] [address] What is the primary number to reach you? [phone] Following physician will be: (list first name/last name) Ani Worley CNP Do you have a caregiver and/or teachable caregiver (list relationship, name & phone #)? Lives alone with support from family members Estimated Discharge Date (NATI): 10/19 [facility] PRO[facility]ESS NOTE Assessment and Plan Carmen Gilman [...] Inpatient Progress Note 10/21/2024 ALEXEY Radford DPM [facility] Patient: Carmen Gilman Date of : 1965 (59 y.o.) PCP: Ani Worley, PROCESS CAMERA OPERATOR ASSESSMENT Bilateral lower extremity venous stasis with [...] 5/5. Right midfoot collapse without rocker-bottom morphology [facility] PROGRESS NOTE Assessment and Plan Carmen Gilman [...] Inpatient Progress Note 10/20/2024 ALEXEY Radford, DPM [facility] Patient: Carmen Gilman Date of : 1965 (59 y.o.) PCP: Ani Worley, PROCESS CAMERA OPERATOR ASSESSMENT Bilateral lower extremity venous stasis with [...] 5/5. Right midfoot collapse without rocker-bottom morphology [facility] PROGRESS NOTE Assessment and Plan Carmen Gilman [...] pt likely ready for dc on Tuesday. [facility] has been set up. Stella, LAWRENCE, aware to send waiver referral. CM to follow. Spiritual Care Progress Note Completed by: Vinita Mitchell Person(s) Present During this Visit: Patient Time Spent in Direct Patient Care: 15 Narrative: Follow-up visit per pt request. Carmen shared a little more about his health and requested a prayer for healing. He cites a strong Protestant gerri and prefers to pray in Willis' name. This greenkeeper provided emotional support and prayer as requested. Visit was brief as Carmen was expecting visitors. This greenkeeper provided information about Pastoral Care services and how to contact a greenkeeper. Pastoral Care team will remain available to support patient and family PRN. 10/19/24 0846 Visit Background Visit With Patient Visit By Staff Repeat Chief Visit Progression Follow-Up Visit Requested By Repeat Chief Initiated Visit Source Repeat Chief Initiated Visit Type Inpatient;Patient Request Visit Circumstances and Events Routine Visit Visit Length (minutes) 15 Patient's Response to Pastoral Care Appeared to be well-engaged;Expressed Gratitude for Visit Visit Planning PRN;Pt aware to contact Repeat Chief as needed Spiritual Assessment Assessed during this visit Temple Assessment Assessed during this visit Family assessment provided? Not assessed during this visit Patient Spiritual Needs Assessment Sources of Connection Other (see comment) (Family) Belief Practices Prayer;Experience of Amna/Divine Favor Image of the Divine Personal / Present;Guide Role of the Divine in Pt's Illness Divine is Source of Support Spiritual Wellness Activies and Resources Prayer;Temple/Philosophic Meaning-Making Spiritual Issues / Opportunities Seek Healing/Wholeness Expressed / Stated Feelings Hopeful Attitude Toward Illness Fighting Spirit Coping Mechanisms Family Support;Trust in God/Higher Power;Prayer/Spiritual Practices Spiritual Diagnosis Spiritual Support and Connection Facilitated Interventions Active Listening;Explored thoughts/feelings associated with current hospitalization;Prayer;Patient's Experience Spiritual/Emotional Outcomes Appreciative;Gratitude Spiritual Plan of Care Continue Healing Process;Receive Spiritual Support;Receive Prayer Patient Temple Needs Assessment Temple Connection Not Discussed Temple Home Protestant Temple Resources Prayer;Hope/Trust in God;Temple Gerri Temple Rituals Prayer Expressed Outcome Expressed Gratitude Signature: Vinita Mitchell MDiv Staff Repeat Chief [facility] On-Call Repeat Chief /Guicho "On-Call Repeat Chief" She/Her/Hers 10/19/2024 7:26 am- This RN will continue to follow for discharge planning. Name of [facility] agency: Pending / Accepted (if [facility], include region) Accepted- [place] (orders) created for the following services: [or waiting for ____ (i.e wound care)] Yes- SN,PT,OT,BUNCH MAKER HAND Verify demographics (residential address) [address] [place] [id number] What is the primary number to reach you? [phone] Following physician will be: (list first name/last name) Ani Worley CNP Do you have a caregiver and/or teachable caregiver (list relationship, name & phone #)? Lives alone with support from family members Estimated Discharge Date (NATI): 10/19 Images from the original note were not included. Podiatry Inpatient Progress Note 10/18/2024 Quyen Franco CNP [facility] Patient: Carmen Gilman Date of : 1965 [...] to get some rest and asked this greenkeeper to try again tomorrow. Visit rescheduled for patient and/or family convenience and pastoral care availability.Pastoral Care team will remain available to support patient and family PRN. 10/18/24 1346 Visit Background Visit With Patient Not Available Visit By Staff Repeat Chief Visit Progression Attempt Visit Requested By Repeat Chief Initiated Visit Source Repeat Chief Initiated Visit Type Inpatient;Rounding Visit Circumstances and Events Routine Visit Visit Length (minutes) 5 Patient's Response to Pastoral Care Timing of Visit Not Optimal. Visit Rescheduled Visit Planning PRN Spiritual Assessment Not assessed during visit Temple Assessment Not assessed during this visit Family assessment provided? Not assessed during this visit Signature: Vinita Mitchell MDiv Staff Repeat Chief [facility] On-Call Repeat Chief /Guicho "On-Call Repeat Chief" She/Her/Hers [facility] PROGRESS NOTE Assessment and Plan Carmen Gilman [...] in Direct Patient Care: 5 Narrative: This greenkeeper attended daily medical rounds. Received updates from medical staff. Pastoral Care team will remain available to support patient and family PRN. 10/18/24 1140 Visit Background Visit With Healthcare Provider Visit By Staff Repeat Chief Visit Progression Other (Please Specify) (Did not participate; clinical rounds) Visit Requested By Repeat Chief Initiated Visit Source Repeat Chief Initiated Visit Type IDT Rounds Visit Circumstances and Events Routine Visit Visit Length (minutes) 5 Patient's Response to Pastoral Care Other (see comment) (Did not participate; clinical rounds) Visit Planning PRN Spiritual Assessment Not assessed during visit Temple Assessment Not assessed during this visit Family assessment provided? Not assessed during this visit Signature: Vinita Mitchell MDiv Staff Repeat Chief [facility] On-Call Repeat Chief /Vocera "On-Call Repeat Chief" She/Her/Hers Spiritual Care Progress Note Completed by: Vinita Mitchell Person(s) Present During this Visit: Patient Time Spent in Direct Patient Care: 15 Narrative: This greenkeeper visited the pt., Carmen, while rounding. He is known to this greenkeeper from previous hospitalizations. Reintroduced self and role. Carmen shared that he is trying to improve his health for his family. He is thankful to God for the improvements he has made in his health. He asked this greenkeeper to visit this afternoon if possible. This greenkeeper provided empathetic listening. Pastoral Care to follow up. This greenkeeper provided information about Pastoral Care services and how to contact a greenkeeper. 10/18/24 1028 Visit Background Visit With Patient Visit By Staff Repeat Chief Visit Progression Introduction Visit Requested By Repeat Chief Initiated Visit Source Repeat Chief Initiated Visit Type Inpatient;Rounding Visit Circumstances and Events Routine Visit Visit Length (minutes) 15 Patient's Response to Pastoral Care Appeared to be well-engaged;Expressed Gratitude for Visit;Requested Follow-up Visit Visit Planning PRN;Pt aware to contact Repeat Chief as needed Spiritual Assessment Not assessed during visit Temple Assessment Not assessed during this visit Family assessment provided? Not assessed during this visit Signature: Vinita Mitchell MDiv Staff [facility] On-Call Repeat Chief /Vocera "On-Call Repeat Chief" She/Her/Hers [facility] PROGRESS NOTE Assessment and Plan Carmen Gilman [...] affect NEUROSURGERY PROGRESS NOTE: Carmen Gilman 1965 [id number] Assessment/Plan: 59y male with multiple underlying medical [...] in Direct Patient Care: 5 Narrative: This greenkeeper attended daily medical rounds. Received updates from medical staff. Pastoral Care team will remain available to support patient and family PRN. 10/17/24 1137 Visit Background Visit With Healthcare Provider Visit By Staff Repeat Chief Visit Progression Other (Please Specify) (Did not participate; clinical rounds) Visit Requested By Repeat Chief Initiated Visit Source Repeat Chief Initiated Visit Type IDT Rounds Visit Circumstances and Events Routine Visit Visit Length (minutes) 5 Patient's Response to Pastoral Care Other (see comment) (Did not participate; clinical rounds) Visit Planning PRN Spiritual Assessment Not assessed during visit Temple Assessment Not assessed during this visit Family assessment provided? Not assessed during this visit Signature: Vinita Mitchell MDiv Staff Repeat Chief [facility] On-Call Repeat Chief /Sameerera "On-Call Repeat Chief" She/Her/Hers Trauma will sign off at this time. [facility] DAILY PROGRESS NOTE MECHANISM: [...] 10/15/2024 ALKPHOS 89 10/15/2024 BILITOT 0.7 10/15/2024 [facility] DAILY PROGRESS NOTE MECHANISM: [...] reviewed the WHIT note, labs, studies, and python consultant notes. Furthermore even though we both were involved with evaluating this patient today, my participation and time spent has exceeded 51% of the total time spent. I have reviewed and agree with the documented history, exam, and plan of care, with the following additions and corrections: Today: Carmen Gilman is a 59 y.o. adult with morbid obesity presenting with T7 fx following [facility] fall. Pt is being admitted with [...] have pt follow up with PCP for director business management management of osteopenia. Vit D 11, will start supp. CBC chem 7 today personally reviewed with chronic anemia, chronic thrombocytopenia, and development today of pancytopenia. PT has been admitted to [facility]. Will f/u nsg recs, MRI pending. Therapies pending results. Cont care per primary team, thank you for this consult. A comprehensive review of systems was performed with the pt and all systems reviewed were negative except those listed in the HPI. Hardy Luna MD, FACS, DABS, DABA Trauma, Acute Care Surgery, Surgical Critical Care, and Neurocritical Care documented in this encounter [facility] 10-24-2024 Hospital course Narrative Images from the original note were not included. [facility] DISCHARGE SUMMARY -- [facility] Carmen Gilman Admitted: 10/15/2024 Discharge Date: 10/24/24 [...] by mouth daily . naloxone 4 mg/actuation Orwell Commonly known as: NARCAN Administer 1 spray [...] - NOT IN LIST Sammy Esteves MD [address] [place], [place] [id number] Follow up Call to schedule a 4 week follow up visit with repeat XRAY [facility] Address: [employer] [facility]: [facility] [phone] Condition at Discharge: Stable Disposition: Home I reviewed discharge recommendations with the patient in person. Patient instructions, including activity, were given to the patient/family at discharge. On day of discharge I saw Carmen Gilman and spent: > 30 minutes on discharge. Completed by: Cameron Vargas MD on 10/24/24, 1:07 PM documented in this encounter [facility] 10-24-2024 Plan of care note [...] Absence of physical injury Outcome: Partially Met [facility] 10-24-2024 Miscellaneous Notes Problem: Actual [...] or call our 14/03 on-call number at [phone] with any questions, concerns or clinical updates. [...] legs, and arms. documented in this encounter [facility] 10-23-2024 Progress note Formatting of t his note might be different from the original. Patient left the unit with a family member in a wheelchair. Patient was advised not to leave the unit and that he needed to wear his oxygen. Patient stated he didn't care and left. [facility] 10-23-2024 Progress note Formatting of [...] to have dressing change at this time. [facility] 10-23-[address] [facility] 10-23-2024 Progress note Formatting of t [...] at this time. Patient denies other needs. [facility] 10-22-2024 Progress note Formatting of t [...] Patient denies other needs at this time. [facility] [facility] 10-22-2024 Consult note Formatting of th [...] stated he feels comfortable with donning/doffing TLSO. [facility] 10-22-2024 Consult note Formatting of th [...] this time, order discontinued at this time. [facility] 10-22-2024 Consult note Formatting of [...] TO [facility] 10/17/2024 3:41 pm- [facility] consult received to set up home health care services. Name of [facility] agency: Pending / Accepted (if [facility], include region) Accepted- [place] (orders) created for the following services: [or waiting for ____ (i.e wound care)] Yes- SN,PT,OT,BUNCH MAKER HAND Verify demographics (residential address) [address] [place] [phone] What is the primary number to reach you? [phone] Following physician will be: (list first name/last [...] 4x daily ipratropium-albuteroL 3 mL Inhalation Q4H [facility] [facility] lidocaine 1 patch Transdermal Daily melatonin 10 [...] Admitting Dx: COPD, resp failure PCP: Meir LICENSED PLUMBER Specialists: none Preferred Pharmacy: [facility] Insurance: [facility] Prescription Benefit: yes, pt states no concerns obtaining/affording meds but states is not compliant with meds at home. Pt states 'I don't what I should be taking, I need a nurse to come in and help me with that.' LW/HPOA: does not have LNOK: Calin Gilman, brother Living Arrangements: Pt lives alone in [facility] independent living apartments with no steps and states needs assistance with all ADL's. Transportation: Pt drives self and states no concerns with transportation. DME/HHC/SNF: Pt states no need for further DME. Pt states has had HHC in the past and would like referral for discharge. Pt states no preference on HHC agency and declines list at this time. Order to [facility] hub for SN/PT/OT/aide. Pt has been to [facility] and [place] in the past and adamantly insists several times that he will not go back to a SNF. Pt states is in contact with a CM but unsure of their name/program. Pt is too young for [facility] so call to [place] waiver program, [facility], and they state pt was denied for [facility] care [facility] in September. Pt is on disability. [...] IP CONSULT TO NEUROSURGERY Neurosurgery Inpatient Consult [facility] 10/16/2024 Radames Hendrickson PA-C [facility] Patient: Carmen Gilman Date of : 1965 (59 y.o.) Referring Provider: Refer to consult order in electronic medical record PCP: Delany, Ani M, PROCESS CAMERA OPERATOR ASSESSMENT/PLAN: MRI T spine reviewed, other images [...] Arthritis, Asthma, COPD (chronic obstructive pulmonary disease) ([facility]), Diabetes ([facility]), Hypertension, Opioid dependence ([facility]), and Secondary adrenal insufficiency (04/30/2022). [...] Jamar Escobedo MD naloxone (NARCAN) 4 mg/actuation Orwell Administer 1 spray into one nostril for [...] 5 5 Elbow Extension (Triceps) 5 5 Intern Product Marketing Manager (Flexor Digitorum) 5 5 Finger Abduction (Interossei) [...] Results Component Value Date NA 137 10/16/2024 [id number] 56.4 (H) 04/25/2022 INR 1.1 09/19/2023 HGB [...] abnormal signal in the thoracic spinal cord. [facility] Workstation ID: [id number] CT Thoracic And Lumbar [...] the remaining thoracic and lumbar spine. [facility] Workstation ID: [id number] CTA Pulm Art and [...] repeat radiographs are recommended in 7-10 days. [facility] Workstation ID: [id number] XR Tibia Fibula Right 2 Views Final Result 1. No acute fracture or dislocation of the pelvis or either tibia or fibula is seen. If there is concern for an occult injury of the pelvis, cross-sectional imaging is recommended. Otherwise, if pain persists, repeat radiographs are recommended in 7-10 days. [facility] Workstation ID: [id number] XR Pelvis 1 View (Standard) Final Result 1. No acute fracture or dislocation of the pelvis or either tibia or fibula is seen. If there is concern for an occult injury of the pelvis, cross-sectional imaging is recommended. Otherwise, if pain persists, repeat radiographs are recommended in 7-10 days. [facility] Workstation ID: [id number] XR Chest 1 View Final Result No acute cardiopulmonary process. Workstation ID: [id number] Cosigned by Mala Gardner MD at 10/16/2024 10:45 PM EST Associated attestation - Mala Gardner MD - 10/16/2024 10:45 PM EST I agree with the Nurse practitioner's/Physician clinical medical assistant's note and plan by Markie Hendrickson [...] Associated Order(s): IP CONSULT TO TRAUMA SURGERY [facility] SURGICAL HISTORY & PHYSICAL/CONSULTATION [...] dependence, hypertension, anxiety, asthma who presented to [facility] with a chief complaint of shortness of [...] a day . naloxone (NARCAN) 4 mg/actuation Orwell Administer 1 spray into one nostril for [...] 2:26 AM EST documented in this encounter [facility] 10-22-2024 Plan of care note [...] Absence of physical injury Outcome: Partially Met [facility] 10-21-2024 Plan of care note [...] level of psychosocial functioning Outcome: Partially Met [facility] 10-20-[address] [facility] 10-20-[address] [facility] 10-20-2024 Progress note Formatting of t [...] kerlix. Patient educated about risk of infection. [facility] 10-19-2024 Plan of care note Problem: [...] level of psychosocial functioning Outcome: Partially Met [facility] 10-19-2024 Note Formatting of this n ote might be different from the original. PHYSICAL THERAPY VISIT VARIANCE NOTE Attempted to see patient at this time, but unable secondary to: Patient Unavailable (Patient politely stated he is waiting on provider for debridement of leg). Will follow up as appropriate. [facility] 10-19-2024 Note Formatting of this n ote might be different from the original. OCCUPATIONAL THERAPY VISIT VARIANCE NOTE Attempted to see patient at this time, but unable secondary to: Patient Unavailable (plans for debridement in the next hour). Will follow up as appropriate. [facility] 10-19-[address] [facility] 10-19-2024 Procedure note Procedure(s): DE DEBRIDEMENT SUBCUTANEOUS TISSUE 1ST 20 SQ CM/<; DE DEBRIDEMENT SUBCUTANEOUS TISSUE EA ADDL 20 SQ CM Podiatry Inpatient Progress Note Cecilia Gonzales DPM [facility] Patient: Carmen Gilman Date of : 1965 (59 y.o.) PCP: Ani Worley, PROCESS CAMERA OPERATOR ASSESSMENT Bilateral lower extremity venous stasis Left [...] 5/5. Right midfoot collapse without rocker-bottom morphology [employer] Work Phone: 10-19-2024 Procedure note Procedure(s): DE DEBRIDEMENT SUBCUTANEOUS TISSUE 1ST 20 SQ CM/<; DE DEBRIDEMENT SUBCUTANEOUS TISSUE EA ADDL 20 SQ CM Podiatry Inpatient Progress Note Cecilia Gonzales DPM [facility] Patient: Carmen Gilman Date of : 1965 (59 y.o.) PCP: Ani Worley, PROCESS CAMERA OPERATOR ASSESSMENT Bilateral lower extremity venous stasis Left [...] without rocker-bottom morphology documented in this encounter [facility] 10-19-[address] [facility] 10-19-2024 Hospital Discharge instructions Quyen Franco [...] be sent through Care Everywhere.Compression Fracture: Spine ([place])documented in this encounter [facility] 10-19-2024 Progress note Formatting of [...] planned for 1 PM. Primary nurse aware. [facility] 10-19-2024 Plan of care note Problem: [...] level of psychosocial functioning Outcome: Partially Met [facility] 10-18-2024 [facility]24 Note Formatting of this n ote might be different from the original. PHYSICAL THERAPY VISIT VARIANCE NOTE Attempted to see patient at this time, but unable secondary to: Patient Unavailable (Patient politely requested PT return later today as he is trying to take a nap. Stated he has already walked in the hallway). Will follow up as appropriate. [facility] 10-18-2024 Progress note Formatting of t his note might be different from the original. Pt asked for assistance with his dressing changed previously. Pt sleeping at this time. Will check back on pt. [facility] 10-18-2024 Progress note Formatting of t [...] or call our 14/03 on-call number at [phone] with any questions, concerns or clinical updates. [facility] 10-18-[address] [facility] 10-18-2024 Progress note Formatting of t his note might be different from the original. Patient ambulating in gilman without assistance or TSLO brace. Educated patient on need to wear brace while out of bed, patient refusing at this time. Patient assisted back to room, sitting in chair. [facility] 10-18-2024 Plan of care note Problem: [...] level of psychosocial functioning Outcome: Partially Met [facility] 10-17-2024 Consult note Associated Order (s): IP CONSULT TO [facility] 10/17/2024 3:41 pm- [facility] consult received to set up home health care services. Name of [facility] agency: Pending / Accepted (if [facility], include region) Accepted- [facility] (orders) created for the following services: [or waiting for ____ (i.e wound care)] Yes- SN,PT,OT,BUNCH MAKER HAND Verify demographics (residential address) [address] [place], [place] [id number] What is the primary number to reach you? [phone] Following physician will be: (list first name/last name) Ani Worley, PROCESS CAMERA OPERATOR Do you have a caregiver and/or teachable caregiver (list relationship, name & phone #)? Lives alone with support from family members Estimated Discharge Date (NATI): 10/19 If discharge needs change, please reach out to liaison assigned on treatment team as hub is not notified of new consults once team is following. Thank you. [facility] 10-17-2024 [facility] [facility] 10-17-2024 Consult note Associated Order (s): [...] Final Result by Enrique Carrasco MD (10/16/2024 8849) 1. Compression fracture at T7 appears to [...] Final Result by Fransisco Camilo MD (10/15/2024 5381) 1. Suboptimal pulmonary artery opacification, but no [...] Gonzales DPM, MS Podiatric Physician & Surgeon [facility] 10-17-2024 Consult note Associated Order [...] Admitting Dx: COPD, resp failure PCP: Meir LICENSED PLUMBER Specialists: none Preferred Pharmacy: [facility] Prescription Benefit: yes, pt states no concerns obtaining/affording meds but states is not compliant with meds at home. Pt states 'I don't what I should be taking, I need a nurse to come in and help me with that.' LW/HPOA: does not have LNOK: Calin Gilman, brother Living Arrangements: Pt lives alone in [facility] independent living apartments with no steps and states needs assistance with all ADL's. Transportation: Pt drives self and states no concerns with transportation. DME/HHC/SNF: Pt states no need for further DME. Pt states has had HHC in the past and would like referral for discharge. Pt states no preference on HHC agency and declines list at this time. Order to [facility] hub for SN/PT/OT/aide. Pt has been to [facility] and [place] in the past and adamantly insists several times that he will not go back to a SNF. Pt states is in contact with a CM but unsure of their name/program. Pt is too young for [facility] so call to [place] waiver program, [facility], and they state pt was denied for [facility] care waiver [facility] in September. Pt is on disability. [...] routine activities due to chronic pain:: Yes [facility] 10-17-2024 [facility] 10-17-2024 Plan of care note Problem: Actual [...] level of psychosocial functioning Outcome: Partially Met [facility] 10-16-2024 Consult note Associated Order (s): IP CONSULT TO NEUROSURGERY Neurosurgery Inpatient Consult [facility] 10/16/2024 Radames Hendrickson PA-C [facility] Patient: Carmen Gilman Date of : 1965 [...] Jamar Escobedo MD naloxone (NARCAN) 4 mg/actuation Orwell Administer 1 spray into one nostril for [...] 5 5 Elbow Extension (Triceps) 5 5 Intern Product Marketing Manager (Flexor Digitorum) 5 5 Finger Abduction (Interossei) [...] Results Component Value Date NA 137 10/16/2024 [id number] 56.4 (H) 04/25/2022 INR 1.1 09/19/2023 HGB [...] abnormal signal in the thoracic spinal cord. [facility] Workstation ID: [id number] CT Thoracic And Lumbar [...] the remaining thoracic and lumbar spine. [facility] Workstation ID: [id number] CTA Pulm Art and [...] repeat radiographs are recommended in 7-10 days. [facility] Workstation ID: [id number] XR Tibia Fibula Right 2 Views Final Result 1. No acute fracture or dislocation of the pelvis or either tibia or fibula is seen. If there is concern for an occult injury of the pelvis, cross-sectional imaging is recommended. Otherwise, if pain persists, repeat radiographs are recommended in 7-10 days. [facility] Workstation ID: [id number] XR Pelvis 1 View (Standard) Final Result 1. No acute fracture or dislocation of the pelvis or either tibia or fibula is seen. If there is concern for an occult injury of the pelvis, cross-sectional imaging is recommended. Otherwise, if pain persists, repeat radiographs are recommended in 7-10 days. [facility] Workstation ID: [id number] XR Chest 1 View Final Result No acute cardiopulmonary process. Workstation ID: [id number] Cosigned by Mala Gardner MD at 10/16/2024 10:45 PM EST Associated attestation - Mala Gardner MD - 10/16/2024 10:45 PM EST I agree with the Nurse practitioner's/Physician clinical medical assistant's note and plan by Markie Hendrickson [...] upright x-rays in the brace for reference. [facility] Work Phone: 10-16-2024 Progress note [...] cardiac monitoring, states "my heart is fine". [facility] 10-16-2024 Plan of care note [...] level of psychosocial functioning Outcome: Partially Met [facility] 10-16-2024 Progress note Formatting of [...] Monica RN checked B/L legs, and arms. [facility] 10-16-2024 Emergency department Note Report called to floor. [facility] 10-16-2024 Emergency department Note Report [...] time. Call light is in reach. Trauma LICENSED PLUMBER Mery at the bedside for consult. Pt [...] arrival to room, we noted that pt's court monitor is laying on the floor by the bed. Pt states that it fell onto his head. Small abrasion noted between patient's eyebrows, no bleeding noted at this time. Pt A&Ox4, resps even and unlabored, and no acute distress noted at this time. rural health consultant Shelby and Dr Lozano notified. Will observe patient for [address] Lozano. Pt back from CT Pt refused toradol, stating "I want my tramadol or subutex". This RN will notify Dr Lozano. Pt back from CT and refusing to have BP cuff on. Pt refused CT; Dr Lozano aware. Pt to xray Associated Order(s): Critical Care; ECG 12 Lead (Now) [facility] ATTENDING NOTE: NAME: Carmen Gilman CSN: [id number] 59 y.o. PCP: Ani Worley CNP History: [...] a day . naloxone (NARCAN) 4 mg/actuation Orwell Administer 1 spray into one nostril for [...] All other components within normal limits Narrative: [facility] has implemented the [...] Procedure Abnormality Status --------- ------ CBC Auto Differential[[id number]] Abnormal Final result CBC and Diff Morphology[[id number]] Abnormal Final result Please view results for [...] in the remaining thoracic and lumbar spine. [facility] Workstation ID: [id number] CTA Pulm Art [...] repeat radiographs are recommended in 7-[address] [facility] Workstation ID: [id number] XR Tibia Fibula Right 2 Views Preliminary Result 1. No acute fracture or dislocation of the pelvis or either tibia or fibula is seen. If there is concern for an occult injury of the pelvis, cross-sectional imaging is recommended. Otherwise, if pain persists, repeat radiographs are recommended in 7-[address] [facility] Workstation ID: [id number] XR Pelvis 1 View (Standard) Preliminary Result 1. No acute fracture or dislocation of the pelvis or either tibia or fibula is seen. If there is concern for an occult injury of the pelvis, cross-sectional imaging is recommended. Otherwise, if pain persists, repeat radiographs are recommended in 7-[address] [facility] Workstation ID: [id number] XR Chest 1 View [...] physician Rhythm: sinus rhythm BPM: 92 normal DE interval normal QRS interval Comments: Normal [place] not prolonged QRS not prolonged Qt<1/2 rr [...] Compression fracture of T7 vertebra, initial encounter ([facility]) Disposition: ED Disposition None Jose Lozano MD, MD ED Attending Physician [facility] Jose Lozano MD 10/15/24 1725 Pt to ED with c/c of shortness of breath. Onset all day worsening to now. PT wheezing, speaking in 2-3 words sentence. EMS reported patient was 75% on RA, increase to 98% on 2 lpm. Pt was given duoneb treatment via EMS. Pt also just finished antibiotics for leg infection. documented in this encounter [facility] 10-16-[address] [facility] 10-16-2024 Emergency department Note Bed: 47 Expected date: Expected time: Means of arrival: Comments: 19 [facility] 10-16-2024 Emergency department Note Hourly rounding assessment completed on the patient. [x] Patient updated on plan of care [x] All comfort needs addressed [x] Patient updated on duration of visit All questions answered, patient denies further needs. Call light within reach. [facility] 10-16-2024 Emergency department Note Hourly rounding assessment completed on the patient. [x] Patient updated on plan of care [x] All comfort needs addressed [x] Patient updated on duration of visit All questions answered, patient denies further needs. Call light within reach. [facility] 10-16-2024 Emergency department Note Hourly rounding assessment completed on the patient. [x] Patient updated on plan of care [x] All comfort needs addressed [x] Patient updated on duration of visit All questions answered, patient denies further needs. Call light within reach. [facility] 10-16-2024 History and physical note [facility] Patient Name: Carmen Gilman : 1965 MR #: [id number] Admit Date: 10/15/2024 Physicians: Ani Worley CNP [...] normal coloration Psych: normal mood and affect [facility] 10-16-2024 History and physical note [facility] Patient Name: Carmen Gilman : 1965 MR #: [id number] Admit Date: 10/15/2024 Physicians: Ani Worley CNP [...] mood and affect documented in this encounter [facility] 10-15-2024 Emergency department Note Hourly rounding assessment completed on the patient. [x] Patient updated on plan of care [x] All comfort needs addressed [x] Patient updated on duration of visit All questions answered, patient denies further needs. Call light within reach. [facility] 10-15-2024 Emergency department Note Hourly rounding assessment completed on the patient. [x] Patient updated on plan of care [x] All comfort needs addressed [x] Patient updated on duration of visit All questions answered, patient denies further needs. Call light within reach. [facility] 10-15-2024 Consult note Associated Order (s): IP CONSULT TO TRAUMA SURGERY [facility] SURGICAL HISTORY & PHYSICAL/CONSULTATION [...] dependence, hypertension, anxiety, asthma who presented to [facility] with a chief complaint of shortness of [...] a day . naloxone (NARCAN) 4 mg/actuation Orwell Administer 1 spray into one nostril for [...] Maldonado MD at 10/16/2024 2:26 AM EST [facility] 10-15-2024 Emergency department Note Hourly rounding [...] this time. Call light is in reach. [facility] 10-15-2024 Emergency department Note Trauma LICENSED PLUMBER Makesuri at the bedside for consult. [facility] 10-15-2024 Emergency department Note Pt still refusing to wear BP cuff even for a moment to check his BP [facility] 10-15-2024 Emergency department Note Hourly rounding assessment completed on the patient. [x] Patient updated on plan of care [x] All comfort needs addressed [x] Patient updated on duration of visit All questions answered, patient denies further needs. Call light within reach. [facility] 10-15-2024 Emergency department Note Pt yelling out, this RN and RN Dede to the bedside. Upon arrival to room, we noted that pt's court monitor is laying on the floor by the bed. Pt states that it fell onto his head. Small abrasion noted between patient's eyebrows, no bleeding noted at this time. Pt A&Ox4, resps even and unlabored, and no acute distress noted at this time. rural health consultant Mary and Dr Lozano notified. Will observe patient for [address] Lozano. [facility] 10-15-2024 Emergency department Note Pt back from CT [facility] 10-15-2024 Emergency department Note Pt refused toradol, stating "I want my tramadol or subutex". This RN will notify Dr Lozano. [facility] 10-15-2024 Emergency department Note Pt back from CT and refusing to have BP cuff on. [facility] 10-15-2024 Emergency department Note Pt refused CT; Dr Lozano aware. [facility] 10-15-2024 Emergency department Note Pt to xray [facility] 10-15-2024 Physician Emergency department Note Associated Order(s): Critical Care; ECG 12 Lead (Now) [facility] ATTENDING NOTE: NAME: Carmen Gilman CSN: [id number] 59 y.o. PCP: Ani Worley CNP History: [...] disease) (HCC) Diabetes (HCC) Hypertension Opioid dependence ([facility]) Secondary adrenal insufficiency 04/30/2022 left [...] a day . naloxone (NARCAN) 4 mg/actuation Orwell Administer 1 spray into one nostril for [...] All other components within normal limits Narrative: [facility] has implemented the [...] Procedure Abnormality Status --------- ------ CBC Auto Differential[[id number]] Abnormal Final result CBC and Diff Morphology[[id number]] Abnormal Final result Please view results for [...] in the remaining thoracic and lumbar spine. [facility] Workstation ID: [id number] CTA Pulm Art [...] repeat radiographs are recommended in 7-10 days. [facility] Workstation ID: [id number] XR Tibia Fibula Right 2 Views Preliminary Result 1. No acute fracture or dislocation of the pelvis or either tibia or fibula is seen. If there is concern for an occult injury of the pelvis, cross-sectional imaging is recommended. Otherwise, if pain persists, repeat radiographs are recommended in 7-10 days. [facility] Workstation ID: [id number] XR Pelvis 1 View (Standard) Preliminary Result 1. No acute fracture or dislocation of the pelvis or either tibia or fibula is seen. If there is concern for an occult injury of the pelvis, cross-sectional imaging is recommended. Otherwise, if pain persists, repeat radiographs are recommended in 7-10 days. [facility] Workstation ID: [id number] XR Chest 1 View [...] physician Rhythm: sinus rhythm BPM: 92 normal DE interval normal QRS interval Comments: Normal [place] not prolonged QRS not prolonged Qt<1/2 rr [...] Compression fracture of T7 vertebra, initial encounter ([facility]) Disposition: ED Disposition None Jose Lozano MD, MD ED Attending Physician [facility] Jose Lozano MD 10/15/24 9911 [facility] 10-15-2024 Emergency department Triage note Pt to ED with c/c of shortness of breath. Onset all day worsening to now. PT wheezing, speaking in 2-3 words sentence. EMS reported patient was 75% on RA, increase to 98% on 2 lpm. Pt was given duoneb treatment via EMS. Pt also just finished antibiotics for leg infection. [facility] 07-05-2024 History of Present illness Narrative Patient Name: Carmen Gilman Admit Date: [id number] MR #: [id number] : 1965 Physicians: Ani Worley, PROCESS CAMERA OPERATOR (Family); No ref. provider found (Referring) Assessment: [...] Disp: , Rfl: naloxone (NARCAN) 4 mg/actuation Orwell, Administer 1 spray into one nostril for [...] excoriations Musculoskeletal: No joint swelling, non tender GIS APPLICATION DEVELOPER: Awake, and Ox3, looking depressed Wound: None but scabs of incisional scar in the right knee Tavera Catheter:None IV Access: Yes I reviewed Medications. I reviewed Labs. US Abdomen Limited Study Final Result Cirrhosis with splenomegaly. No ascites. No cholelithiasis or biliary ductal dilatation. No right hydronephrosis or nephrolithiasis. /[facility] Workstation ID: [id number] Knee Right 2 [...] to Current Admission?: Yes Final D/C Agency/Destination: [facility] Home/[facility] Health Plan A: Home Health Care Services Discharging Transportation Plan: Discharge Plan Status: AMA Assessment and Background Information: Per APPLIANCE COUNSELOR, pt left AMA at this time. Miguel Ángel from [facility] updated. [facility] liaison updated. SDOH Needs Addressed: Food Insecurity, Housing Stability, Financial Resource Strain, Transportation Needs Resources Provided - Food Insecurity: Added to AVS Resources Provided - Transportation Needs: Added to AVS Resources Provided - Housing Stability: Added to AVS ATTENDING PHYSICIAN CAMERON VARGAS MD PRIMARY CARE PHYSICIAN ANI WORLEY, RODRIGUE ADMITTING PHYSICIAN CHRISTIAN PORTER MD CONSULTING PHYSICIAN GENERIC [facility] Under sterile conditions with patient's consent, [...] for fluid cell analysis. D 07/05/2024 12:12 [id number] 07/05/2024 12:42 MCB/MODL ATTENDING PHYSICIAN CAMERON VARGAS MD PRIMARY CARE PHYSICIAN ANI WORLEY, RODRIGUE ADMITTING PHYSICIAN CHRISTIAN PORTER MD CONSULTING PHYSICIAN GENERIC [facility] Carmen's shoulder exams are completely benign. CAT scan, I do not understand the relevance of the CAT scan, but at this point in time, the shoulder exams are completely benign. We will proceed forward with aspiration on 07/05/2024 of his right knee. This is a chronic situation. D 07/04/2024 17:59 [id number] 07/04/2024 18:17 MCB/MODL Patient Name: Carmen Gilman Admit Date: [id number] MR #: [id number] : 1965 Physicians: Ani Worley CNP (Family); [...] excoriations Musculoskeletal: No joint swelling, non tender GIS APPLICATION DEVELOPER: Awake, and Ox3, looking depressed Wound: None but scabs of incisional scar in the right knee Tavera Catheter:None IV Access: Yes I reviewed Medications. I reviewed Labs. US Abdomen Limited Study Preliminary Result Cirrhosis with splenomegaly. No ascites. No cholelithiasis or biliary ductal dilatation. No right hydronephrosis or nephrolithiasis. /[facility] Workstation ID: [id number] Knee Right 2 [...] to Current Admission?: Yes Final D/C Agency/Destination: [facility] Health Plan A: Home Health Care [...] Provided - Housing Stability: Added to AVS [facility] PRO[facility]ESS NOTE Assessment and Plan Carmen Gilman is a 58 y.o. adult patient of Ani Worley CNP with history of anxiety, arrhythmia, asthma, COPD, hypertension, opioid dependence, secondary adrenal insufficiency presented to [facility] on 07/02/2024 with shortness of breath. 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 [facility] accepted referral. AVS updated. ID currently following. If OPAT needed, will need to secure infusion pharmacy, SOC date, and place new [facility]. Is [facility] plan complete or pending? (List items pending) COMPLETE Name of [facility] agency: Pending / Accepted [facility] / [facility] ACCEPTED Referrals sent to: (names of agencies) Please be advised that external agencies have 24 hours to respond to referrals. [facility] Infusion pharmacy: (name) Referral pending or accepted? For IV, TPN, or TF: Referral order placed? Has script been sent? (Yes/no) N/A Medication / frequency N/A Line / tube N/A [facility] (orders) placed? List services For OHIP - AR[facility] placed? [or waiting for ____ (i.e wound care)] YES - SN, PT, OT, BUNCH MAKER HAND Please ensure pt/family understands skilled BUNCH MAKER HAND is only for assisting with personal care once or twice weekly. Verify demographics (discharge address) [address] [facility] [address] [facility] [address] What is the primary phone number? [phone] Who is your primary care physician? Ani [...] = Start of Care TCG = Teachable Intensive Care Nurse [facility] PROGRESS NOTE Assessment and Plan Cramen Gilman is a 58 y.o. adult patient of Ani Worley CNP with history of anxiety, arrhythmia, asthma, COPD, hypertension, opioid dependence, secondary adrenal insufficiency presented to [facility] on 07/02/2024 with shortness of breath. 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 07-05-2024 Plan of care note [id number] ENCOUNTER FOR HOME MEDICAL EQUIPMENT PATIENT: Carmen Gilman : 1965 Statement of Care: I certify that Carmen Gilman is under my care and that I, a Nurse Practitioner, Physician's Juice Weigher, or Resident working with me, had a abjk-ub-pngb encounter with this patient today to evaluate and discuss the need for home medical equipment. I certify that based on the findings of this evaluation, which included but was not limited to the frif-zq-ghkf requirements, the following home medical equipment is medically necessary: Tub transfer bench, medically necessary to facilitate safe transfers in and out of tub. Signed by: Dre Ordonez MD on 07/05/2024 [employer] Work Phone: 07-05-2024 Miscellaneous Notes [id number] ENCOUNTER FOR HOME MEDICAL EQUIPMENT PATIENT: Carmen Gilman : 1965 Statement of Care: I certify that Carmen Gilman is under my care and that I, a Nurse Practitioner, Physician's Juice Weigher, or Resident working with me, had a umly-zm-kovn encounter with this patient today to evaluate and discuss the need for home medical equipment. I certify that based on the findings of this evaluation, which included but was not limited to the fpga-ng-takz requirements, the following home medical equipment is [...] importance of the monitoring. Patient still refused. VHQZ-DT-SOUH ENCOUNTER FOR HOME MEDICAL EQUIPMENT PATIENT: Carmen Gilman : 1965 Statement of Care: I certify that Carmen Gilman is under my care and that I, a Nurse Practitioner, Physician's Juice Weigher, or Resident working with me, had a vurb-vn-rlgt encounter with this patient today to evaluate and discuss the need for home medical equipment. I certify that based on the findings of this evaluation, which included but was not limited to the btkv-st-kusz requirements, the following home medical equipment is [...] Outcome: Partially Met documented in this encounter [facility] 07-05-[address] [facility] 07-04-2024 Plan of care note Problem: [...] Goal: Effective breathing pattern Outcome: Partially Met [facility] 07-04-[address] [facility] 07-04-2024 Progress note Formatting of t his note might be different from the original. Patient refusing cardiac monitoring. I educated the patient about the importance of the monitoring. Patient still refused. [facility] 07-04-2024 Progress note Formatting of t his note might be different from the original. LIRX-LW-[id number] ENCOUNTER FOR HOME MEDICAL EQUIPMENT PATIENT: Carmen Gilman : 1965 Statement of Care: I certify that Carmen Gilman is under my care and that I, a Nurse Practitioner, Physician's Juice Weigher, or Resident working with me, had a nyfo-ok-sqgy encounter with this patient today to evaluate and discuss the need for home medical equipment. I certify that based on the findings of this evaluation, which included but was not limited to the hvzo-gz-bhdk requirements, the following home medical equipment is medically necessary: shower chair for equipment to support patient's medical needs For safety with transfer in and out of shower Signed by: Cameron Vargas MD on 07/04/2024 [facility] 07-04-2024 Hospital course Narrative Images from the original note were not included. [facility] DISCHARGE SUMMARY -- [place] Carmen Souza Admitted: 07/02/2024 Discharge Date: 07/04/24 PCP Handoff Recommended Outpatient Testing Follow up with primary care and Ortho Results Pending At Discharge none Clinical Summary Assessment and Plan Carmen Gilman is a 58 y.o. adult patient of Ani Worley CNP with history of anxiety, arrhythmia, asthma, COPD, hypertension, opioid dependence, secondary adrenal insufficiency presented to [facility] on 07/02/2024 with shortness of breath. 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 naloxone 4 mg/actuation Orwell Commonly known as: NARCAN Administer 1 spray [...] Follow Up: OTHER - NOT IN LIST [facility] Address: N/a Servicing [facility]: [facility] [phone] Condition at Discharge: Stable Disposition: HOME AMA I reviewed discharge recommendations with the patient in person. Patient instructions, including activity, were given to the patient/family at discharge. On day of discharge I saw Carmen Gilman and spent: > 30 minutes on discharge. Completed by: Cameron Vargas MD on 07/04/24, 11:02 AM documented in this encounter [facility] 07-04-2024 Progress note Formatting of t his note might be different from the original. Patient refusing IV at this time. [facility] 07-04-2024 Plan of care note [...] level of psychosocial functioning Outcome: Partially Met [facility] 07-04-2024 Progress note Formatting of t his note might be different from the original. Dr Ruby notified patient refused further IV antibiotics.no new orders noted. [facility] 07-03-2024 Consult note Formatting of th is note might be different from the original. ATTENDING PHYSICIAN GENERIC [facility] PRIMARY CARE PHYSICIAN ANI WORLEY CNP ADMITTING PHYSICIAN CHRISTIAN PORTER MD CONSULTING PHYSICIAN GENERIC [facility] Carmen is a gentleman who I [...] Orthopedics at this time. D 07/03/2024 17:03 [id number] 07/03/2024 17:50 MCB/MODL [facility] 07-03-2024 Consult note Formatting of th is note might be different from the original. ATTENDING PHYSICIAN GENERIC [facility] PRIMARY CARE PHYSICIAN ANI WORLEY CNP ADMITTING PHYSICIAN CHRISTIAN PORTER MD CONSULTING PHYSICIAN GENERIC [facility] Carmen is a gentleman who I [...] Orthopedics at this time. D 07/03/2024 17:03 [id number] 07/03/2024 17:50 MCB/MODL Associated Order(s): IP CONSULT TO HOME HEALTH HUB Images from the original note were not included. Per chart review noted ID following; please notify Hub liaisons if OPAT needed at [place]. Will need name/number of confirmed TCG. Name of [facility] agency: Pending / Accepted (if [facility], include region) Pending: [facility] First Choice HC Matters [facility] Interim Declined: [place] [facility] (orders) created for the following services: [or waiting for ____ (i.e wound care)] SN/PT/OT/aide Verify demographics (residential address) [address] [address] What is the primary number to reach you? [phone] Who is your family physician/primary care physician? Ani Worley, PROCESS CAMERA OPERATOR General - Family Medicine [phone] Do you have a caregiver and/or teachable caregiver (list relationship, name & phone #)? CALIN GILMAN (Relative)/brother Estimated Discharge Date (NATI): 07/04 If discharge needs change, please reach out to liaison assigned on treatment team as hub is not notified of new consults once team is following. Thank you. Patient Name: Carmen Gilman MR #: [id number] [facility] Serv[facility]est #: [id number] : 1965 Physicians: Ani Worley CNP (Family); [...] chronic hepatitis C, had been treated at [facility] by Dr. Hayden. I had the opportunity [...] that patient just [facility] about 2 weeks ago and had been [...] Meir ARELLANO Specialists: none Preferred Pharmacy: [facility] [place] Insurance: [facility] Prescription Benefit: yes, pt states no [...] states no preference on agency. Order to [facility] hub for SN/PT/OT/aide. Pt states was recently at [facility] for rehab. Pt is on disability. Pt [...] chronic pain:: Yes documented in this encounter [facility] 07-03-2024 Consult note Associated Order (s): IP CONSULT TO HOME HEALTH [facility] Images from the original note were not included. Per chart review noted ID following; please notify Hub liaisons if OPAT needed at [place]. Will need name/number of confirmed TCG. Name of [facility] agency: Pending / Accepted (if [facility], include region) Pending: [facility] First Choice HC [facility] Interim Declined: [place] [facility] (orders) created for the following services: [or waiting for ____ (i.e wound care)] SN/PT/OT/aide Verify demographics (residential address) [address] [place] [id number] What is the primary number to reach you? [phone] Who is your family physician/primary care physician? Ani Worley CNP General - Family Medicine [phone] Do you have a caregiver and/or teachable caregiver (list relationship, name & phone #)? CALIN GILMAN (Relative)/brother Estimated Discharge Date (NATI): 07/04 If discharge needs change, please reach out to liaison assigned on treatment team as hub is not notified of new consults once team is following. Thank you. [facility] 07-03-2024 Consult note Formatting of th is note is different from the original. Patient Name: Carmen Gilman MR #: [id number] : 1965 Physicians: Ani Worley CNP (Family); [...] chronic hepatitis C, had been treated at [facility] by Dr. Hayden. I had the opportunity [...] that patient just [facility] about [facility] weeks ago and had been [...] meaning can be extrapolated by contextual derivation. [facility] 07-03-2024 Consult note Associated Order (s): [...] Meir ARELLANO Specialists: none Preferred Pharmacy: [facility] [place] [facility] Prescription Benefit: yes, pt states no [...] states no preference on agency. Order to [facility] hub for SN/PT/OT/aide. Pt states was recently at [facility] for rehab. Pt is on disability. Pt [...] routine activities due to chronic pain:: Yes [facility] 07-03-2024 Progress note Formatting of t his note might be different from the original. Pt refused to order food from dietary unless he has a regular menu. Dr. Vargas notified and pt diet changed to regular per request. [facility] 07-03-2024 Hospital Discharge instructions Rachelle Yang RN - 07/03/2024 8:04 AM EST These are the low income housing and apartments in [place], [place]. Many of these apartments have waiting lists. Make sure you phone the apartments directly for full details and office hours. Do not get discouraged. Through our experience, we have learned that you will need to contact many apartments. If you stick with it, you will find that apartment that you love, with availability. AFFORDABLE APARTMENTS [facility] Apartments [address] [place] [address] Family Housing [facility] Apartments [address] [place] [address] Family Housing [facility] [address] [place] [address] Kevan Farris (Charly) Family Housing [facility] Apartments [address] [place] [address] Family Housing [facility] Apartments [address] [place], [place] [address] Family Housing [facility] [address] [place] [address] [address] [place] [address] Family Housing [place] [address] [place] [address] Disabled Housing [facility] [address] [place] [address] Family Housing [address] [place] [address] Family Housing [facility] Apart[address] [place] [address] Family Housing [place] [facility] [address] [place] [address] Family Housing [place] [facility] [place] [address] [place] [address] Jeff Family Housing [facility] Apartments [address] [place] [address] Family Housing [place] [address] [place] [address] [facility] EMERGENCY HOUSING [facility] Life Services [address] [place] [address] Alanis Daugherty Domestic Violence Alf 24 hr. Molly Poe 4 [employer] (Men only) Friona [address] [place] [address] [employer] [facility] Demar/Rent Assistance [facility] [address] [place] [address] [facility] Funds [facility] [address] [place] [address] BUDGET & FINANCIAL SERVICES [employer] [address] [place] [address] Budget counseling and debt management program. They help people attain lower credit card interest rates, stop fees and collection activity [employer] Residential State Supplement Program [address] [place] [address] Services are - information and referral services, supportive and in-home services, training, housing and service development, residential state supplement program. Care Choice [place]: Community Care Coordination and Housing Choices for seniors. 60 & older [facility] [address] [place] [address] At [facility], we believe in educating and empowering families and individuals to help them make flood money management decisions. Financial education workshops are held regularly at [facility]. The workshops are free and open to the public. Job & Family Services - [facility] [address] [place] [address] Food stamps, Medicaid, prevention, retention and contingency funds and keane assistance [facility] Section 8 Voucher ([employer]) [address] [place] [address] This is a housing subsidy agent. Its function is to bring together the site supervising technical operator of property and low/moderate - income persons who meet certain criteria. [facility] [address] [place] [address] Program areas of emphasis include - leadership development of adults and youth, management of resources, family budgeting and farm financial accounting manager, nutrition, lawn and garden care and other aspects of home economics, agriculture and youth development. [facility] Service Commission [address] ([facility]) [place] [address] Temporary aid, including limited financial assistance to resident veterans of [facility] Social Security Administration [address] [place] [address] Toll Free Assist in the filing of claims for long-term, disability or survivor keane benefits, as well as claims to establish eligibility for Medicare coverage. Also assist in filing claims for Supplemental Security Income Program which provides keane benefits to aged, blind or disabled people who have limited income and resources. www.socialsecurity.gov BUSINESS COMMUNICATIONS INSTRUCTOR [facility] ([place] [facility]) [address] [place] [address] Tuesday thru Tuesday 6:30 am to 5:30 pm 6 weeks to 12 yrs. 5 [facility] [address] [place] [address] Tuesday thru Tuesday 6:00 am to 6:00 pm 6 weeks to 12 yrs. First Assembly Pedicurist [address] [place] [address] Tuesday thru Tuesday 5:30 am to 6:30 pm 6 weeks to 12 yrs. [facility] [address] [place] [address] Tuesday thru Tuesday 7:00 am to 5:30 pm 6 weeks to 12 yrs. [facility] [address] [place], [place] [id number] Tuesday thru Tuesday 5:00 am to 6:00 pm 6 weeks to 12 yrs. [facility] ([place] [facility]) [address] [place], [place] [phone] thru Tuesday 6:30 am to 5:30 pm 6 weeks to 12 yrs. [facility] [address] [place], [place] [address] Tuesday thru Tuesday 6:30 am to 6:00 pm 3-6 year olds After school K thru 6th [employer] [address] [place], [place] [id number] Tuesday thru Tuesday 6:30 am to 6:30 pm 6 weeks to 12 yrs. Rosanna [facility] [address] [facility] [address] Tuesday thru Tuesday 5:30 am to 7:00 pm 6 weeks to 12 yrs. [employer] [address] [place] [address] Tuesday thru Tuesday 7:00 am to 9:00 pm 6 weeks to 12 yrs. Colona [employer]bing Press Operator Learning Center [address] [facility] [address] Tuesday thru Tuesday 6:30 am to 6:00 pm 6 weeks to 12 yrs. [facility] Child Development [facility] [address] [place] [address] Tuesday thru Tuesday 7:00 am to 5:30 pm 6 weeks through [facility] [facility] ([facility] Y) [address] [place] [address] Tuesday thru Tuesday 6:30 am to 5:30 pm 6 weeks to 12 yrs. [facility] Pedicurist [facility] Education [facility] [address] [place] [address] Tuesday thru Tuesday 6:30 am to 5:30 pm 6 weeks to 11 yrs. [facility] [address] [place] [address] Tuesday thru Tuesday 5:30 am to 11:30 p.m. Tuesday 6:00 am to 6:30 pm 6 weeks to 12 yrs. 6 EMERGENCY ASSISTANCE [employer] Supporting Homeless Services in [facility]) [address] [place] [address] Clothing Hours Tues - Sat. 10:00 AM - 4:00 PM [employer] [facility] [address] [place] [address] [employer] [facility] [employer] [address] [place], [place] [id number] Provides disaster relief, support to families, and health and safety training. [facility] [address] [place], [place] [address] Food, Clothing, Activities Tuesday 10:00 AM - 6:00 PM 10:00 AM - 4:00 PM Tuesday 10:00 AM - 2:00 PM Tuesday 10:00 AM - 2:00 PM [employer] [address] [place] [address] Material assistance program which includes food, prescription, rent, and medical bills. [employer] ([employer]) [address] [place]. [address] ([phone]) ext.[phone] Hrs.: Mon//Fri 8:30am-12:30pm 8:30-11:00am & 1:00-3:30pm Curbside Drive-Thru, Delivery by agency referral to seniors and households w/o transportation. Eligibility: walk-in, food every 30 days Intake: photo ID and proof of [facility]. residency (current piece of mail accepted as proof) [facility] Emergency Repair Funds Community Dev. Office [facility] [address] [place] [address] Provides assistance with home repairs. Community Action Commission of [facility], & [facility] HEAP Program (Winter & Summer) [address] [place] [address] Provides emergency heating and air conditioning, one-time assistance, and other utility assistance 10 [facility] Program (Contact Mary [facility]) [address] [place] [address] Distribution of food, clothing, linens, and toys is usually the second before Celina (december vary). financial aid coordinator offered all year round. Emergency Food Assistance ([employer]) [address] [place], [place] [id number] [facility] parking lot at corner of [facility] & [place], [place] Free Fresh Produce Distributions . of each Month - December - Drive-through only PYO bags & boxes - One form of ID required [employer] Store: [address] [place] [address] Store: [address] [place], [place] [phone] (072) Hours Mon. - Sun. 10:00 AM - 6:00 PM [facility] - Food Pantry [address] [place], [place] [phone] Every other Tue. 3-6pm beginning December 25 and every . 9:00 am to noon Intake: photo ID, proof of residency if different from ID Drive-thru or walk up only [employer] [address] [place] [id number] Provides weatherization and home safety services. [employer] [address] [place], [place] [id number] A homeless assisted that provides emergency, temporary housing. Information Line First Call 211 [facility] A telephone information and referral services Information is collected on social service agencies, support groups, churches, clubs and organizations, government offices, cultural and recreational institutions located in [facility]. [facility] welcomes you to [place] - Hot Meal Outreach [address] [place], [place] [address] Tuesday each month Livier Andrew [place] [facility] [place] [address] Hrs.: Every ., 6:15pm-7:00pm (Must be registered) Intake: To register, call [employer] at for screening and referral, . & Tue. 9:30am-noon [employer] [address] [place] [address] Phone calls only. Tues. & Wed. Assists in short term help. [facility] Food Pantry IdFrancesca Hazel Jew [facility] [address] [place], [place] [address] Must live in [facility] or [facility] Food [facility] [address] [place] [address] Hrs.: 2nd & 4th Sat. each month 9:00-11:00am Note! Drive-thru only. No public restrooms Eligibility: [place], [place], [address] Intake: Photo ID required & proof of address, i.e. recent utility bill, medical bill, etc. with current address [facility] [address] [place], [place] Free Fresh Produce 2nd Sat. of each month - [place] annually Filter Tip Catcher's license or State ID required [address] [place], [place] [address]steven Yeager [facility] - Food Pantry [address] [place], [place] [phone] Fridays 9:00 am to 3:00 pm Call the [facility] before coming. [facility] - Food Pantry [address] [place], [place] [phone] Hours: Tuesday of the month. 1000 am to 3:00 pm. Call [facility] with number of people in family, address, and phone number for them to call you back with picker and sorter load and unload time for the next day. Must have phone number so we can call to tell you when to come and picker and sorter load and unload food. [place] residents only [facility] [address] [place], [place] [phone] Hrs.: Third Wed. of the month 9:30am, during monthly breakfast Intake: photo ID & proof of residency Eligibility: may use pantry every other month Nikhil GOODSON [address] [facility] [address] Free Fresh Produce Tuesday - January 18 4th Sat. of the month - Drive thru only Fill out intake form - no documents required [facility] [address] [place] [address] Hrs.: Third Sat. each month 9:30-10:30am Eligibility: Anyone in need, up to six times per year Intake: photo ID, proof of residency [facility] [address] [address] Hrs.: Third Sat. from 1-2pm Intake: Filter Tip Catcher's license/photo ID Area served: [facility] [address] [place] [address] Provides free meals and food assistance Third Tuesday of every month [employer] (Supporting [employer]) [address] [place] [address] Also: [address] [place] [address] Habitat builds or remodels homes for low-income families. Hours: Tue, Fri., Sat. 11:00 AM - 5:00 PM 12:00 PM - 5:00 PM [facility] Veterans Services Commission [address] [place] [address] Provides residents with temporary emergency financial business analyst for [facility] veterans who have met unexpected hardship or crisis. [facility] - Food Pantry [address] [place] [address] The [facility] and [facility] food pantry supports families with food in times of need. Please call to set up arrangements. [facility] only. [facility] [employer] [address] [place] [address] Helps with housing, rent, food, and shoes, during school months Food Pantry: Tuesday - Tuesday 10:30am-2:00pm Eligibility: 18 or older (carry out only) Intake: Proof of [facility]. Residency (clients should seek assistance from the Chapter closest to their residence) Mary [facility] [address] [place] [address] Provides assistance with home repairs. [facility] [address] [place] [address] Direct financial business analyst assistance with rent, utilities, etc. Furniture linkage for persons in need of furniture, school clothes, exchange in March for school age children and youth to receive school supplies and clothes. [place] [facility] Store [address] [place] [address] Tuesday thru Tuesday 9 am to 6 pm Tuesday 9 am to 5 pm 12 [facility] [address] [place] [address] Clothing Closet Three [facility] [address] [place], [place] [phone] Clothing Closet only 10 am to 5 pm $5.00 per bag; open to all [facility] [address] [place], [place] [address] Food Pantry 6:15 pm to 7pm By appointment only [facility] [facility] [address] [place] [address] [facility] Store Tuesday thru Tuesday 10am to 7pm Tuesday 12pm to 6pm [employer] [address] [place], [place] [id number] [email or web address] Store Tuesday thru Tuesday 10am to 4pm Tuesday 10am to 2 pm TRANSPORTATION Agency Transportation Advisory Committee [facility] Regional Planning Commission [address] [place] [address] Coordination of available transportation for people with disabilities, people over 60, or those who are otherwise disadvantaged. [employer] [address] [place] [address] Service available 7 days a week 24 hours a day [employer] *Bus Stop Only [address] [place] [address] Job & Family Services [facility] [address] [place] [address] The Enhanced Medicaid Transportation Services (GRAVE CLEANER) program provides non-emergency transportation for Medicaid eligible recipients. [facility] Transit (RCT) [address] [place] [address] Tickets Bus Terminal Buses cover nearly all of the [facility], portions of [facility], the [facility], and industrial areas. This is the most flexible and cost effective transportation available. [facility] RESOURCE GUIDE FCP/SOCIAL SERVICE/RESOURCE GUIDES June 19, 2020 The following attachments cannot be sent through Care Everywhere.Food Insecurity: General Info (South Korean)documented in this encounter [facility] 07-03-2024 Plan of care note [...] of skin protection measures Outcome: Partially Met [facility] 07-02-2024 Emergency department Note Bed: 39 Expected date: Expected time: Means of arrival: Comments: 17 [facility] 07-02-2024 Emergency department Note Bed: [...] CHEST Associated Order(s): ECG 12 Lead (Now) [facility] EMERGENCY DEPARTMENT ATTENDING NOTE: NAME: Carmen Gilman CSN: [id number] 58 y.o. PCP: Ani Worley CNP History: [...] a day . naloxone (NARCAN) 4 mg/actuation Orwell Administer 1 spray into one nostril for [...] All other components within normal limits Narrative: [facility] Laboratory Services has implemented the [...] Procedure Abnormality Status --------- ------ CBC Auto Differential[[id number]] Abnormal Final result Please view results for [...] physician Rhythm: sinus rhythm BPM: 75 normal DE interval normal QRS interval Comments: Normal Gladwin DE not prolonged QRS not prolonged Qt<1/2 rr [...] Jose Lozano MD, MD ED Attending Physician [facility] EM[facility]Y DEPART[facility] Jose Lozano MD 07/03/24 [...] arrival: Comments: r1 documented in this encounter [facility] 07-02-2024 History and physical note [facility] -- [facility] Patient Name: Carmen Gilman : 1965 MR #: [id number] Admit Date: 07/02/2024 Physicians: Ani Worley CNP (Family); No ref. provider found (Referring) Carmen Gilman is a 58 y.o. adult patient of Ani Worley CNP with history of anxiety, arrhythmia, asthma, COPD, hypertension, opioid dependence, secondary adrenal insufficiency presented to [facility] on 07/02/2024 with shortness of breath. 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 Pt states that he has had ARROYO today. Pt sat down as he was very short of breath. Pt noticed some swelling in his legs recently as well. He states he's not taking his meds. [facility]. Pt had been at [...] right leg Psych: normal mood and affect [facility] 07-02-2024 History and physical note [facility] -- [facility] Patient Name: Carmen Gilman : 1965 MR #: [id number] Admit Date: 07/02/2024 Physicians: Ani Worley CNP (Family); No ref. provider found (Referring) Carmen Gilman is a 58 y.o. adult patient of Ani Worley CNP with history of anxiety, arrhythmia, asthma, COPD, hypertension, opioid dependence, secondary adrenal insufficiency presented to [facility] on 07/02/2024 with shortness of breath. 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 Pt states that he has had ARROYO today. Pt sat down as he was very short of breath. Pt noticed some swelling in his legs recently as well. He states he's not taking his meds. [facility]. Pt had been at [...] mood and affect documented in this encounter [facility] 07-02-2024 Note 1. Suboptimal evaluation [...] infection is not excluded. Workstation ID: [id number] [facility] 07-02-2024 Emergency department Note Patient with call light on, educated that patient not to have food or drink until CT results back. [facility] 07-02-[address] VIA CART [facility] 07-02-[address] CALLED TO ADVISE OF NEW IV SITE IN FOR SCAN [facility] 07-02-2024 Emergency department Note PT ADVISED [...] DID AGREE TO HAVE CT OF CHEST [facility] 07-02-2024 Physician Emergency department Note Associated Order(s): ECG 12 Lead (Now) [facility] EMERGENCY DEPARTMENT ATTENDING NOTE: NAME: Carmen Gilman CSN: [id number] 58 y.o. PCP: Ani Worley CNP History: [...] a day . naloxone (NARCAN) 4 mg/actuation Orwell Administer 1 spray into one nostril for [...] All other components within normal limits Narrative: [facility] Laboratory Services has implemented the [...] Procedure Abnormality Status --------- ------ CBC Auto Differential[[id number]] Abnormal Final result Please view results for [...] physician Rhythm: sinus rhythm BPM: 75 normal DE interval normal QRS interval Comments: Normal [place] DE not prolonged QRS not prolonged Qt<1/2 rr [...] Jose Lozano MD, MD ED Attending Physician [facility] EM[facility]ENCY DEPART[facility] Jose Lozano MD 07/03/24 0058 [facility] 07-02-2024 Emergency department Triage note Pt to ed for sudden onset of shortness of breath. Patient has COPD but states the shortness of breath was worse this time. Patient took approx 7-10 hits of his inhaler and states he feels, "back to normal." Denies chest pain. [facility] 07-02-2024 Emergency department Note Bed: 17 Expected date: Expected time: Means of arrival: Comments: r1 [facility] 01-17-2024 History of Present illness Narrative [...] & Ankle Surgery documented in this encounter [facility] 09-09-2023 History of Present illness [...] intact. Protective sensation is diminished using the [place] Jared monofilament. Dermatologic: See images below. Musculoskeletal: [...] Physician & Surgeon documented in this encounter [facility] 09-02-2023 History of Present illness [...] intact. Protective sensation is diminished using the [place] Jared monofilament. Dermatologic: See images below. Musculoskeletal: [...] Physician & Surgeon documented in this encounter [facility] 09-02-2023 Instructions Jolanta Jones RN - 09/02/2023 2:56 PM EST Adaptic, 4x4's, kerlix, coban from toes to knee Do not change dressing Keep clean and dry F/u 1 week documented in this encounter [facility] 08-26-2023 History of Present illness Narrative Complete note to follow documented in this encounter [facility] 08-26-2023 History of Present illness [...] intact. Protective sensation is diminished using the [place] Jared monofilament. Dermatologic: See images below. Musculoskeletal: Patient is able to wiggle digits. Ankle joint range of motion is intact. Muscle strength is 5/5 to dorsiflexors, plantar flexors, inverters and everters. Compartments soft and compressible. No calf pain Diagnoses: 1. 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) Wound 08/05/23 1 Surgical Wound Upper Leg Anterior;Right (Active) Wound Image 08/26/23 8537 Assessment/Plan: Patient was seen and evaluated. Discussed [...] Physician & Surgeon documented in this encounter [facility] 08-26-2023 Instructions Jessenia Cruz RN - 08/26/2023 1:55 PM EST Vaseline to bilateral legs dry skin Irrigate with saline and pad dry Apply gavino to all open wound edges Adaptic 4x4's, kerlix, coban from toes to knee F/u 1 week documented in this encounter [facility] 08-19-2023 History of Present illness [...] was tolerated well documented in this encounter [facility] 08-19-2023 Instructions Jolanta Jones RN - 08/19/2023 12:26 PM EST Gavino to all open areas bilaterally, 4x4's, kerlix, coban from toes to knee F/u 1 week documented in this encounter [facility] 08-11-2023 History of Present illness Narrative Images from the original note were not included. Patient Name: Carmen Gilman Admit Date: [id number] MR #: [id number] : 1965 Physicians: Ani Worley CNP (Family); No ref. provider found (Referring) Assessment: Patient with 1. Right lower extremity nonhealing wound 2. Right Knee abscess, with suspicion for prosthetic right knee infection. 3. Chronic hepatitis C,(treated at [facility], and negative hepatitis C RNA.) 4. [...] post skin graft. Continue dressing as per industrial designer recommendation. Podiatry is recommending patient to stay [...] injection 5,000 Units, 5,000 Units, Subcutaneous, Q8H [facility], Moncho Joaquin MD, 5,000 Units at 08/06/23 [...] Disp: , Rfl: naloxone (NARCAN) 4 mg/actuation Orwell, Administer 1 spray into one nostril for [...] knee with drainage, and wound. Area dressed. GIS APPLICATION DEVELOPER: Awake, and Ox3, Wound: Ulceration of the [...] extremity subcutaneous tissues, which could represent cellulitis. [facility]/[employer] Workstation ID: [id number] Laboratory and Additional Data [...] Podiatry Inpatient progress note 08/11/2023 Quyen Franco, [facility] Patient Name: Carmen Gilman. . Date [...] pedal complaints. Anxious to get discharged to [facility] today. Physical Examination: BP 129/68 Pulse 67 [...] Quyen Franco Medical Transportation set up by [facility] per hospital request: Date:08/11/23 Time:3pm Destination: [place] [address] Company: [employer] ([phone]) Special needs/equipment:N/A Truck Type: Ambulance Companies called: [...] chart from id team - faxed to [place] - transport requested from [employer] - will [...] as soon as the time is secured. [facility] Assessment and Plan Carmen Gilman [...] hypertension and esophageal varices, pancytopenia, presented to [facility] due to wounds in the lower extremity [...] He would like to go back to [facility] as soon as possible. BP (!) [...] Carmen Gilman Admit Date: [id number] MR #: [id number] : 1965 Physicians: Ani Worley, RODRIGUE (Family); No ref. provider found (Referring) Assessment: Patient with 1. Right lower extremity nonhealing wound 2. Right Knee abscess, with suspicion for prosthetic right knee infection. 3. Chronic hepatitis C,(treated at [facility], and negative hepatitis C RNA.) 4. [...] post skin graft. Continue dressing as per industrial designer recommendation. Podiatry is recommending patient to stay [...] knee with drainage, and wound. Area dressed. GIS APPLICATION DEVELOPER: Awake, and Ox3, Wound: Ulceration of the [...] extremity subcutaneous tissues, which could represent cellulitis. [facility] Workstation ID: [id number] Laboratory and Additional [...] follow. Jalyn Mercer RDN, LD Dietitian's Office [phone] Images from the original note were not included. Podiatry Inpatient progress note 08/10/2023 Quyen Franco, [facility] Patient Name: Carmen Gilman. . Date [...] patient stay until Tuesday before discharging to [facility]. Subjective: Patient seen in his room, lying [...] Rolling: Modified independent, Head of bed flat [employer] Manufacturing Consultant: bedrails Skilled Intervention Provided: monitoring patient response [...] information Prior Level of Function Level of [place] - Transfers/Ambulation/Mobility: Independent with functional transfers, Independent with household ambulation Level of [place] - ADLs: Independent For complete objective data, [...] Carmen Gilman Admit Date: 12070924 MR #: [id number] : 1965 Physicians: Ani Worley, PROCESS CAMERA OPERATOR (Family); No ref. provider found (Referring) Assessment: Patient with 1. Right lower extremity nonhealing wound 2. Right Knee abscess, with suspicion for prosthetic right knee infection. 3. Chronic hepatitis C,(treated at [facility], and negative hepatitis C RNA.) 4. [...] post skin graft. Continue dressing as per industrial designer recommendation. We will continue to follow with [...] knee with drainage, and wound. Area dressed. GIS APPLICATION DEVELOPER: Awake, and Ox3, Wound: Ulceration of the [...] extremity subcutaneous tissues, which could represent cellulitis. [facility] Workstation ID: [id number] Laboratory and Additional Data [...] Discharge Plan Status: Per Dr. Sandra in [facility], pt will likely be ready for discharge in a day or two. Kelsey working on precert to try and skill pt on return. CM to follow. Images from the original note were not included. Podiatry Inpatient progress note 08/09/2023 Quyen Franco, PROCESS CAMERA OPERATOR [facility] Patient Name: Carmen Gilman. . Date of [...] help care for your patient. Quyen Franco [facility] Assessment and Plan Carmen Gilman is a 58 y.o. adult patient of Ain Worley CNP with history hypertension, hyperlipidemia, COPD, [...] hypertension and esophageal varices, pancytopenia, presented to [facility] due to wounds in the lower extremity [...] Carmen Gilman Admit Date: [id number] MR #: [id number] : 1965 Physicians: Ani Worley, RODRIGUE (Family); No ref. provider found (Referring) Assessment: Patient with 1. Right lower extremity nonhealing wound 2. Right Knee abscess, with suspicion for prosthetic right knee infection. 3. Chronic hepatitis C,(treated at [facility], and negative hepatitis C RNA.) 4. [...] post skin graft. Continue dressing as per industrial designer recommendation. We will continue to follow with [...] injection 5,000 Units, 5,000 Units, Subcutaneous, Q8H [facility], Moncho Joaquin MD, 5,000 Units at 08/06/23 [...] 5 mg, Oral, Nightly PRN, Dee Carnes, PROCESS CAMERA OPERATOR, 5 mg at 08/07/23 2111 meloxicam (MOBIC) [...] knee with drainage, and wound. Area dressed. GIS APPLICATION DEVELOPER: Awake, and Ox3, depressed leuk Wound: Ulceration [...] extremity subcutaneous tissues, which could represent cellulitis. [facility] Workstation ID: [id number] Laboratory and Additional [...] meaning can be extrapolated by contextual derivation. [facility] PRO[facility]ESS NOTE Assessment and Plan Carmen Gilman [...] hypertension and esophageal varices, pancytopenia, presented to [facility] due to wounds in the lower extremity [...] Carmen Gilman Admit Date: [id number] MR #: [id number] : 1965 Physicians: Ani Worley CNP (Family); No ref. provider found (Referring) Assessment: Patient with 1. Right lower extremity nonhealing wound 2. Right Knee abscess, with suspicion for prosthetic right knee infection. 3. Chronic hepatitis C,(treated at [facility], and negative hepatitis C RNA.) 4. [...] post skin graft. Continue dressing as per industrial designer recommendation. We will continue to follow with [...] knee with drainage, and wound. Area dressed. GIS APPLICATION DEVELOPER: Awake, and Ox3 Wound: Ulceration of the [...] Note Patient Name: Carmen Gilman MR #: [id number] Date of Service: 08/07/23 Clinician: Harper Arango [...] sodium chloride (PF) 5 mL Intravenous Q8H [facility] Laboratory and Additional Data Reviewed: Laboratory 08/07/23 [...] extremity subcutaneous tissues, which could represent cellulitis. [facility]/s Workstation ID: [id number] Impression and Recommendations Pancytopenia, [...] 32.55 kg/m Laboratory and Additional Data Reviewed: Reviewed:[id number]} US Abdomen Complete Narrative: EXAMINATION: US ABDOMEN [...] tree is not dilated Workstation ID: [id number] [facility] PRO[facility] Assessment and Plan Carmen Gilman [...] hypertension and esophageal varices, pancytopenia, presented to [facility] due to wounds in the lower extremity [...] Carmen Gilman Admit Date: [id number] MR #: [id number] : 1965 Physicians: Ani Worley, RODRIGUE (Family); No ref. provider found (Referring) Assessment: Patient with 1. Right lower extremity nonhealing wound 2. Right Knee abscess, with suspicion for prosthetic right knee infection. 3. Chronic hepatitis C,(treated at [facility], and negative hepatitis C RNA.) 4. [...] evaluation recommended. Scheduling for skin graft. Follow-up industrial designer evaluation, Continue dressing as per industrial designer recommendation. We will continue to follow with you. I reviewed deep right knee wound culture with no growth I discussed with the industrial designer, Dr. Gonzales, scheduling for skin graft. Addendum. [...] capsule 500 mg, 500 mg, Oral, Q6H [facility] [facility], Kinza Garrett MD, 500 mg at 08/06/23 [...] injection 5,000 Units, 5,000 Units, Subcutaneous, Q8H [facility], Moncho Joaquin MD, 5,000 Units at 08/06/23 [...] 4 mg, 4 mg, Intravenous, Q6H PRN, Mnocho Joaquin MD oxyCODONE (ROXICODONE) immediate release tablet [...] knee with drainage, and wound. Area dressed. GIS APPLICATION DEVELOPER: Awake, and Ox3 Wound: Ulceration of the [...] extremity subcutaneous tissues, which could represent cellulitis. [facility] Workstation ID: [id number] Abdomen Complete (Results [...] 32.55 kg/m Laboratory and Additional Data Reviewed: Reviewed:[id number]} CT Knee Right With Contrast Narrative: EXAMINATION: [...] extremity subcutaneous tissues, which could represent cellulitis. [facility] Workstation ID: [id number] [facility] PROGRESS NOTE Assessment and Plan Carmen Gilman [...] hypertension and esophageal varices, pancytopenia, presented to [facility] due to wounds in the lower extremity [...] Carmen Gilman Admit Date: [id number] MR #: [id number] : 1965 Physicians: Ani Worley, PROCESS CAMERA OPERATOR (Family); No ref. provider found (Referring) Assessment: Patient with 1. Right lower extremity nonhealing wound 2. Right Knee abscess, with suspicion for prosthetic right knee infection. 3. Chronic hepatitis C,(treated at [facility], and negative hepatitis C RNA.) 4. [...] evaluation recommended. Scheduling for skin graft. Follow-up industrial designer evaluation, Continue dressing as per industrial designer recommendation. We will continue to follow with you. I reviewed deep right knee wound culture with no growth I discussed with the industrial designer, Dr. Gonzales, scheduling for skin graft. Addendum. [...] capsule 500 mg, 500 mg, Oral, Q6H [facility], 500 mg at 08/05/23 0403 [...] injection 5,000 Units, 5,000 Units, Subcutaneous, Q8H [facility], Moncho Joaquin MD, 5,000 Units at 07/31/23 [...] PRN, Dee Carnes, RODRIGUE, 5 mg at 08/04/23 2259 [OCT Hold] [...] injection, , Intravenous, PRN, Lu, Maury Luke, AIR SAW OPERATOR, 4 mg at 08/05/23 1630 fentaNYL (SUBLIMAZE) injection, , Intravenous, PRN, Lu, Maury Luke, AIR SAW OPERATOR, 50 mcg at 08/05/23 1703 lidocaine 20 mg/mL (2 %) injection, , Intravenous, PRN, Lu, Maury Luke, AIR SAW OPERATOR, 100 mg at 08/05/23 1627 midazolam (VERSED) injection, , Intravenous, PRN, Lu, Maury Luke, AIR SAW OPERATOR, 2 mg at 08/05/23 1624 ondansetron (ZOFRAN) injection, , Intravenous, PRN, Lu, Maury Luke, AIR SAW OPERATOR, 4 mg at 08/05/23 1630 propofoL (DIPRIVAN) injection, , Intravenous, PRN, Lu, Maury Luke, AIR SAW OPERATOR, 40 mg at 08/05/23 1703 sodium chloride 0.9% (NS), , Intravenous, Continuous PRN, Lu, Maury Luke, AIR SAW OPERATOR, New Bag at 08/05/23 1623 PMH/PSH/SH/FH reviewed, [...] excoriations Musculoskeletal: No joint swelling, non tender GIS APPLICATION DEVELOPER: Awake, and Ox3 Wound: Ulceration of the [...] extremity subcutaneous tissues, which could represent cellulitis. [employer] Workstation ID: [id number] Abdomen Complete (Results [...] meaning can be extrapolated by contextual derivation. [facility] PROGRESS NOTE Assessment and Plan Carmen Gilman [...] hypertension and esophageal varices, pancytopenia, presented to [facility] due to wounds in the lower extremity [...] needed while in-house. Tyesha Cohen RDN, Office [phone] Images from the original note were not included. Patient Name: Carmen Gilman Admit Date: [id number] MR #: [id number] : 1965 Physicians: Ani Worley, PROCESS CAMERA OPERATOR (Family); No ref. provider found (Referring) Assessment: Patient with 1. Right lower extremity nonhealing wound 2. Right Knee abscess, with suspicion for prosthetic right knee infection. 3. Chronic hepatitis C,(treated at [facility], and negative hepatitis C RNA.) 4. [...] evaluation recommended. Scheduling for skin graft. Follow-up industrial designer evaluation, Continue dressing as per industrial designer recommendation. We will continue to follow with [...] capsule 500 mg, 500 mg, Oral, Q6H [facility], Kinza Garrett MD, 500 mg at 08/04/23 [...] injection 5,000 Units, 5,000 Units, Subcutaneous, Q8H [facility], Moncho Joaquin MD, 5,000 Units at 07/31/23 [...] 5 mg, Oral, Nightly PRN, Dee Carnes, PROCESS CAMERA OPERATOR meloxicam (MOBIC) tablet 15 mg, 15 mg, [...] excoriations Musculoskeletal: No joint swelling, non tender GIS APPLICATION DEVELOPER: Awake, and Ox3 Wound: Ulceration of the [...] extremity subcutaneous tissues, which could represent cellulitis. [facility] Workstation ID: [id number] Laboratory and Additional Data [...] Inpatient progress note 08/04/2023 Quyen Franco, RODRIGUE [facility] Patient Name: Carmen Gilman. . Date of [...] help care for your patient. Quyen Franco [facility] PROGRESS NOTE Assessment and Plan Carmen Gilman [...] hypertension and esophageal varices, pancytopenia, presented to [facility] due to wounds in the lower extremity [...] Carmen Gilman Admit Date: [id number] MR #: [id number] : 1965 Physicians: Delany, Ani M, PROCESS CAMERA OPERATOR (Family); No ref. provider found (Referring) Assessment: Patient with 1. Right lower extremity nonhealing wound 2. Right Knee abscess, with suspicion for prosthetic right knee infection. 3. Chronic hepatitis C,(treated at [facility], and negative hepatitis C RNA.) 4. [...] Podiatry evaluation recommended. Continue dressing as per industrial designer recommendation. We will continue to follow with [...] excoriations Musculoskeletal: No joint swelling, non tender GIS APPLICATION DEVELOPER: Awake, and Ox3 Wound: Ulceration of the [...] extremity subcutaneous tissues, which could represent cellulitis. [facility] Workstation ID: [id number] Laboratory and Additional Data [...] Transfers Sit to Stand: Stand by assist [employer] Consultant: wheeled walker, BUE Skilled Intervention Provided: verbal [...] information Prior Level of Function Level of Sargent - Transfers/Ambulation/Mobility: Independent with functional transfers, Independent with household ambulation Level of Sargent - ADLs: Independent For complete objective data, detailed plan of care and patient education refer to: PT Evaluation flowsheet, PT Evaluation and Treatment flowsheet, PT Treatment flowsheet, patient Plan of Care, Plan of Care progress note, and Patient Education. This note stands as the current Discharge Summary upon patient discharge from the hospital or completion of Physical Therapy Plan of Care. [facility] PROGRESS NOTE Assessment and Plan Carmen Gilman [...] hypertension and esophageal varices, pancytopenia, presented to [facility] due to wounds in the lower extremity [...] and pt states plan is back to [place] at discharge. Pt does state concerns with COVID at [place]. Pt encouraged to let them place line [...] Podiatry Inpatient progress note 08/03/2023 Quyen Franco, [facility] Patient Name: Carmen Gilman. . Date [...] in Direct Patient Care: 15 Narrative: This greenkeeper visited the pt., Carmen, while rounding. Visit was brief as Carmen was not feeling well. Introduced self and role. Carmen explained that he had a difficult day and wanted prayer. He led prayer with this greenkeeper and asked for healing. This greenkeeper provided empathetic listening and supportive presence. This greenkeeper provided information about Pastoral Care services and how to contact a greenkeeper. Pastoral Care team will remain available to support patient and family PRN. Images from the original note were not included. Podiatry Inpatient progress note 08/02/2023 Quyen Franco CNP [facility] Patient Name: Carmen Gilman. . Date of [...] Transfers Sit to Stand: Stand by assist [employer] Consultant: wheeled walker, BUE Skilled Intervention Provided: monitoring [...] information Prior Level of Function Level of Sargent - Transfers/Ambulation/Mobility: Independent with functional transfers, Independent with household ambulation Level of Sargent - ADLs: Independent For complete objective data, [...] Carmen Gilman Admit Date: [id number] MR #: [id number] : 1965 Physicians: Ani Worley, PROCESS CAMERA OPERATOR (Family); No ref. provider found (Referring) Assessment: Patient with 1. Right lower extremity nonhealing wound 2. Right Knee abscess, with suspicion for prosthetic right knee infection. 3. Chronic hepatitis C,(treated at [facility], and negative hepatitis C RNA.) 4. [...] the right knee. Continue dressing as per industrial designer recommendation. We will continue to follow with [...] Units, 0-30 Units, Subcutaneous, TID AC, Moncho Joaqiun MD ipratropium-albuteroL (DUO-NEB) 0.5-2.5 mg/3 ml nebulizer [...] excoriations Musculoskeletal: No joint swelling, non tender GIS APPLICATION DEVELOPER: Awake, and Ox3 Wound: Ulceration of the [...] extremity subcutaneous tissues, which could represent cellulitis. [facility] Workstation ID: [id number] Laboratory and Additional Data [...] meaning can be extrapolated by contextual derivation. [facility] PROGRESS NOTE Assessment and Plan Carmen Gilman [...] hypertension and esophageal varices, pancytopenia, presented to [facility] due to wounds in the lower extremity [...] Carmen Gilman Admit Date: [id number] MR #: [id number] : 1965 Physicians: Ani Worley, RODRIGUE (Family); No ref. provider found (Referring) Assessment: Patient with 1. Right lower extremity nonhealing wound 2. Right Knee abscess, with suspicion for prosthetic right knee infection. 3. Chronic hepatitis C,(treated at [facility], and negative hepatitis C RNA.) 4. [...] the right knee. Continue dressing as per industrial designer recommendation. We will continue to follow with [...] puff, 2 puff, Inhalation, Q6H PRN, Moncho Joqauin MD, 2 puff at 07/31/23 0932 aspirin [...] excoriations Musculoskeletal: No joint swelling, non tender GIS APPLICATION DEVELOPER: Awake, and Ox3 Wound: Ulceration of the [...] extremity subcutaneous tissues, which could represent cellulitis. [facility] Workstation ID: [id number] Laboratory and Additional Data [...] follow. Jalyn Mercer RDN, LD Dietitian's Office [phone] [facility] PROGRESS NOTE Assessment and Plan Carmen Gilman [...] hypertension and esophageal varices, pancytopenia, presented to [facility] due to wounds in the lower extremity [...] Podiatry Inpatient progress note 08/01/2023 Quyen Franco [facility] Patient Name: Carmen Gilman. . Date [...] Inpatient progress note 07/31/2023 Cecilia Gonzales DPM [facility] Patient Name: Carmen Gilman. . Date of [...] Carmen Gilman Admit Date: [id number] MR #: [id number] : 1965 Physicians: Ani Worley, PROCESS CAMERA OPERATOR (Family); No ref. provider found (Referring) Assessment: Patient with 1. Right lower extremity nonhealing wound 2. Right Knee abscess, with suspicion for prosthetic right knee infection. 3. Chronic hepatitis C,(treated at [facility], and negative hepatitis C RNA.) 4. [...] the right knee. Continue dressing as per industrial designer recommendation. We will continue to follow with [...] injection 5,000 Units, 5,000 Units, Subcutaneous, Q8H [facility], Moncho Joaquin MD, 5,000 Units at 07/31/23 [...] IVPB, 1,250 mg, Intravenous, Q12H, Lindsey Zhang, [facility],PharmD, Last Rate: 250 mL/hr at [...] excoriations Musculoskeletal: No joint swelling, non tender GIS APPLICATION DEVELOPER: Awake, and Ox3 Wound: Ulceration of the [...] extremity subcutaneous tissues, which could represent cellulitis. [facility] Workstation ID: [id number] Laboratory and Additional Data [...] meaning can be extrapolated by contextual derivation. [facility] PROGRESS NOTE Assessment and Plan Carmen Gilman [...] hypertension and esophageal varices, pancytopenia, presented to [facility] due to wounds in the lower extremity [...] dressing noted Psych: normal mood and affect [facility] PRO[facility]ESS NOTE Assessment and Plan Carmen Gilman [...] hypertension and esophageal varices, pancytopenia, presented to [facility] due to wounds in the lower extremity [...] 1 Encounters: 07/29/23 108.9 kg (240 lb) [place] body weight: 77.6 kg (171 lb 1.2 oz) Adjusted ideal body weight: 90.1 kg (198 lb 10.3 oz) Patient Tmax (last 24 hours): 99 F Micro: pending Pharmacy Personnel: Lindsey Zhang RPh,PharmD Contact: or Vocera documented in this encounter [facility] 08-11-2023 Hospital course Narrative Images from the original note were not included. [facility] DISCHARGE SUMMARY -- [facility] Carmen Gilman Admitted: 07/29/2023 Discharge Date: 08/11/23 [...] hypertension and esophageal varices, pancytopenia, presented to [facility] due to wounds in the lower extremity [...] mouth every morning . naloxone 4 mg/actuation Orwell Commonly known as: NARCAN Administer 1 spray [...] instructed. Physician(s) Follow Up: Kinza Garrett MD [address] [place] [address] Follow up in 2 week(s) Condition at Discharge: Good Disposition: SNF I reviewed discharge recommendations with the patient in person. Patient instructions, including activity, were given to the patient/family at discharge. On day of discharge I saw Carmen Gilman and spent: > 30 minutes on discharge. Completed by: Christian Porter on 08/11/23, 12:47 PM documented in this encounter [facility] 08-09-2023 Hospital Discharge instructions Quyen [...] clinic as scheduled documented in this encounter [facility] 08-09-2023 Miscellaneous Notes PHYSICAL THERAPY [...] to: Patient Unavailable secondary to working with the [facility]. Will follow up as appropriate. Problem: Actual [...] (58 y.o.) Date of Service: 08/05/2023 CSN: [id number] Procedure(s): RIGHT LOWER LEG SPLIT THICKNESS SKIN GRAFT Pre-Operative Diagnoses: * Chronic Leg Wound, Right Leg Post-Operative Diagnoses: * Same as Pre-Op Diagnosis Surgeon(s) and Role: * Cecilia Gonzales DPM - Primary Anesthesiologist: Bryson Kelley MD AIR SAW OPERATOR: Maury Lu CRNA Marine Engine Machinist: Jeremy Fink RN Scrub Person Relief: Jolanta [...] Odor None 08/05/23 1746 Wound Bed Characteristics [place] 08/04/23 1828 Wound Closure Other (Comment) 08/05/23 1746 Tiffany-wound Assessment [place] 08/05/23 1746 Hemostasis Not applicable 08/05/23 1746 [...] documentation, and discharge. documented in this encounter [facility] 08-08-2023 Consult note Associated Order (s): IP CONSULT TO ENTEROSTOMAL THERAPY Wound vac [id number] Returned to the wound clinic via surgical staff and placed in the dirty utility for picker and sorter load and unload. Wound is no longer being managed by the wound care team, wound care to sing off at this time. Re consult if further wound care needs arise. Jessenia Cruz RN, CA Associated Order(s): IP CONSULT TO ONCOLOGY Hematology and Oncology Consult Note Patient Name: Carmen Gilman Admit Date: [id number] MR #: [id number] : 1965 Physicians: Ani Worley, PROCESS CAMERA OPERATOR (Family); No ref. provider found (Referring) Impression [...] Jamar Escobedo MD naloxone (NARCAN) 4 mg/actuation Orwell Administer 1 spray into one nostril for [...] extremity subcutaneous tissues, which could represent cellulitis. [facility] Workstation ID: [id number] PICC Team consulted for [...] placement so we could proceed with a half-way line placement. Patient declined PICC placement stating [...] - Static: Stand by assist, with device [employer] Consultant - Standing Static: wheeled walker Bed Mobility Not assessed Transfers Sit to Stand: Stand by assist [employer] Consultant: wheeled walker, BUE Gait/Locomotion Gait Assistance: Stand [...] information Prior Level of Function Level of Sargent - Transfers/Ambulation/Mobility: Independent with functional transfers, Independent with household ambulation Subjective Impression - Prior Function: uses walker for mobility Past Medical History: Diagnosis Date Anxiety Arrhythmia Arthritis Asthma COPD (chronic obstructive pulmonary disease) (HCC) Diabetes (HCC) Hypertension Opioid dependence ([facility]) Secondary adrenal insufficiency ([facility]) 04/30/2022 left AMA 04/30/22 without [...] assist Stand Pivot Transfers: Stand by assist [employer] Consultant: wheeled walker Additional Assessment Details Pt seated [...] information Prior Level of Function Level of Sargent - Transfers/Ambulation/Mobility: Independent with functional transfers, Independent with household ambulation Level of Sargent - ADLs: Independent Subjective Impression - Prior Function: Pt is a difficult historian, becomes irritable towards therapists with questions regarding PLOF and refusing to answer. Pt reports he does not have a home at this time and needs to go to a [facility] at discharge. Past Medical History: Diagnosis Date [...] ARELLANO Specialists: Preferred Pharmacy: [facility] Insurance: [facility] Prescription Benefit: yes, pt states no concerns obtaining/affording meds and is compliant with meds at home. LW/HPOA: does not have LNOK: Ginny Parks, daughter; Johana Graf, daughter Living Arrangements: Pt lives with daughter, Johana, and her boyfriend but states is not really supposed to be staying there. Pt states was sent home from [place] 'about a week ago'. Pt states is working with Jolanta Schaefer at [facility] to get re-set back up with apartment and Jolanta's number is [phone]. This RN CM spoke with Jolanta and she was under impression that pt was still at SNF. Jolanta said they are working on [facility] apt in [place] or [facility] apt. Transportation: Pt drives self and states no concerns with transportation. DME/HHC/SNF: Pt states no need for further DME. Pt has had HHC in the past but not currently and has been at [place]. Pt states lost apartment d/t extended SNF [...] updated on all and call placed to [place]. Per [place], pt came from there this visit and has not been living with daughter. Pt at [place] log skidder and they will take him back at discharge. Treatment team updated. Pt does not smoke cigarettes or drink ETOH. Pt states no concerns with going home at time of dc and states no further questions/concerns/needs. Advised pt to ask for CM if any further question/concerns/needs arise, voices understanding. CM to follow. Pt Goal: [facility] to [facility] that is not set up yet Plan: Back to [place] until appropriate discharge planning can be set up from their facility Living Arrangements: Family members Support Systems: Family members, manager statistical programming/director of social work Assistance Needed: none Type of Residence: Private [...] from the original note were not included. [facility] nursing visit for NPWT dressing application. Wound VAC # [id number] placed. Removed dressing, see details of wound [...] room. Jessenia Cruz RN, CWCA ATTENDING PHYSICIAN [facility] ANI WORLEY CNP ADMITTING PHYSICIAN MONCHO JOAQUIN MD CONSULTING PHYSICIAN TATA [facility] HISTORY OF PRESENT ILLNESS Carmen is [...] septic total knee replacement. D 07/31/2023 10:05 [id number] 07/31/2023 11:25 MCB/MODL Associated Order(s): IP CONSULT TO PODIATRY Images from the original note were not included. Podiatry Inpatient Consult Note 07/30/2023 Cecilia Gonzales [facility] Patient Name: Carmen Gilman. . Date [...] Gonzales Patient Name: Carmen Gilman MR #: [id number] : 1965 Physicians: Ani Worley, PROCESS CAMERA OPERATOR (Family); No ref. provider found (Referring) Chief [...] presented to the wound clinic via his industrial designer, who had noted some drainage from the [...] Arthritis Asthma COPD (chronic obstructive pulmonary disease) ([facility]) Diabetes ([facility]) Hypertension Opioid dependence ([facility]) Secondary adrenal insufficiency ([facility]) 04/30/2022 left AMA 04/30/22 without [...] extremity subcutaneous tissues, which could represent cellulitis. [employer] Workstation ID: [id number] Physical Examination: Vital Signs: [...] Get orthopedic evaluation. Continue dressing as per industrial designer recommendation. We will continue to follow with [...] by contextual derivation. documented in this encounter [facility] 07-30-2023 Emergency department Note Repositioned patient Images from the original note were not included. [facility] ED WHIT Note: NAME: Carmen Gilman 58 y.o. CSN: [id number] PCP: Ani Worley CNP History: Chief Complaint: [...] Arthritis Asthma COPD (chronic obstructive pulmonary disease) ([facility]) Diabetes ([facility]) Hypertension Opioid dependence ([facility]) Secondary adrenal insufficiency ([facility]) 04/30/2022 left AMA 04/30/22 without [...] mouth daily . naloxone (NARCAN) 4 mg/actuation Orwell Administer 1 spray into one nostril for [...] All other components within normal limits Narrative: [facility] Services has implemented the [...] Procedure Abnormality Status --------- ------ CBC Auto Differential[[id number]] Abnormal Final result Please view results for [...] Uyen Casiano CNP ED Advanced Practice Provider [facility] Emergency Department (Please note that portions of this note have been completed with a voice recognition software. Efforts were made to correct any errors, but occasionally words are mis-transcribed.) Uyen Casiano CNP 07/29/231839 Pt presents to ER from wound care for open wound check to R knee, reports wound being for a couple days. Stated drainage from site. documented in this encounter [facility] 07-29-2023 History and physical note [facility] HISTORY AND PHYSICAL -- [facility] Patient Name: Carmen Gilman : 1965 MR #: [id number] Admit Date: 07/29/2023 Physicians: Ani Worley CNP [...] Arthritis Asthma COPD (chronic obstructive pulmonary disease) ([facility]) Diabetes ([facility]) Hypertension Opioid dependence ([facility]) Secondary adrenal insufficiency ([facility]) 04/30/2022 left AMA 04/30/22 without [...] mood and affect documented in this encounter [facility] 07-29-2023 History of Present illness [...] was tolerated well documented in this encounter [facility] 07-29-2023 Instructions Jolanta Jones RN - 07/29/2023 1:57 PM EST 1. Take swab culture of right leg wound done here in the clinic 2. Dakin wet to dry to right leg wound 3. Dry dressing to right knee wound 4. Gavino and dsd to left leg wound documented in this encounter [facility] 07-19-2023 History of Present illness [...] a skin graft. documented in this encounter [facility] 07-15-2023 History of Present illness [...] instructions were communicated with patient's nurse at [facility] Debridement Consent obtained? verbal Consent given by: [...] was tolerated well documented in this encounter [facility] 07-15-2023 Instructions Marisela Marquez RN - 07/15/2023 8:46 AM EST Xeroform to wound bed then saline wet to dry - Right leg Gavino and dsd - Left leg Teddy bilaterally Change Tuesday, Tuesday, tuesday F/u 1 week documented in this encounter [facility] 07-08-2023 Instructions Marislea Marquez RN - 07/08/2023 2:27 PM EST Wound vac on the right (temporary ns moist gauze placed at wound care.) Facility to place npwt today upon patient return. Iodoflex to left medial leg ulcer, secured with 4 x 4 gauze kerlix Teddy. Change Tuesday, Tuesday, tuesday documented in this encounter [facility] 07-08-2023 History of Present illness [...] was tolerated well documented in this encounter [facility] 07-01-2023 Instructions Jolanta Jones RN - 07/01/2023 2:14 PM EST Wet to dry on right and vac is to be applied at facility Iodoflex, 4x4's, kerlix and teddy to be applied on left leg wound. Change at the facility once every other day F/u 1 week documented in this encounter [facility] 07-01-2023 History of Present illness [...] 57-year-old male coming to wound clinic from [facility] following hospitalization. Patient has been followed repeatedly [...] was tolerated well documented in this encounter [facility] 07-01-2023 History of Present illness [...] was tolerated well documented in this encounter [facility] 06-17-2023 Instructions Jolanta Jones RN [...] Tuesday for evaluation documented in this encounter [facility] 06-17-2023 History of Present illness Narrative Images from the original note were not included. Podiatry wound clinic VISIT Quyen Franco CNP Patient Name: Carmen Gilman. . Date of : 1965, 57 y.o.. Gender: male. Author: Quyen Franco Subjective: Patient is a 57-year-old male coming to wound clinic from [facility] following hospitalization. Patient has been followed repeatedly [...] in the future documented in this encounter [facility] 06-12-2023 Evaluation + Plan note Associated Problem(s): Adrenal insufficiency (HCC) Chronic, was seeing endocrinology back in 2021 and diagnosed at that time. Seems he has been on 5 mg prednisone continuously. [facility] 06-12-2023 Miscellaneous Notes Associated Problem(s): [...] ascites on exam documented in this encounter [facility] 06-12-2023 Evaluation + Plan note Associated Problem(s): Chronic pain Multifactorial with history of back pain, knee pain, neuropathy. He is on gabapentin which we will continue here. On oxycodone for wounds as well Can also use topical Voltaren, lidocaine patches. 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 Has f/u with ID [facility] 06-12-2023 Evaluation + Plan note [...] he goes to wound clinic. Narcan available [facility] 06-12-2023 Evaluation + Plan note Associated [...] [facility], will continue at this time. [facility] 06-12-2023 Evaluation + Plan note Associated Problem(s): Venous stasis dermatitis of both lower extremities Chronic problem, he has both LE wrapped continuously. Left leg swelling has improved but right leg swelling present with history of trauma. Continue Lasix as well. [facility] 06-12-2023 Evaluation + Plan note Associated Problem(s): COPD (chronic obstructive pulmonary disease) (HCC) Chronic problem likely in setting of nicotine use. He does continue to smoke tobacco. We will continue his home inhalers. He is stable at this time and no signs of acute exacerbation. [facility] 06-12-2023 Evaluation + Plan note Associated Problem(s): Cirrhosis (HCC) This is a chronic problem, possibly secondary to hepatitis C infection. He is pancytopenic. Last hep C quant was negative. complete blood count reviewed, continued to have leukopenia, anemia and thrombocytopenia. No ascites on exam [facility] 06-12-2023 History of Present illness Narrative Images from the original note were not included. [facility] [address] [place] [address] Readmission: 06/11/23 Carmen Gilman is a 57 [...] cirrhosis who presents today for readmission to [facility]. He was sent out to the [...] states that he is not wanting a APPLIANCE COUNSELOR to place hs wound vac and demands [...] weekly for 3 weeks. Follow-up with the PROCESS CAMERA OPERATOR weekly And Dr. Garrett in 3 weeks. [...] 30 tablet 0 naloxone (NARCAN) 4 mg/actuation [place]well Administer 1 spray into one nostril for [...] this chart may have been created with [employer] voice recognition software. Occasional wrong-word or "sound-like" substitutions may have occurred due to inherent limitations of the voice recognition software. Please read the chart carefully and recognize, using context, where the substitutions have occurred. Electronically signed by: Nathan Collins M.D. documented in this encounter [facility] 05-25-2023 Evaluation + Plan note Associated Problem(s): Ulcer of left lower leg (HCC) Present on admission, treated during hospitalization. Likely 2/2 vascular disease. He will see podiatry on 06/03. Continue with dressing changes. [facility] 05-25-2023 Miscellaneous Notes Associated Problem(s): [...] to monitor. Patient endorses pain and request Macomb be prescribed however he is high risk [...] to discuss this with his PCP. Per [place] State laws I am unable to fill [...] ascites on exam documented in this encounter [facility] 05-25-2023 Evaluation + Plan note Associated Problem(s): Plantar ulcer of right foot (HCC) S/p debridement by podiatry on 05/23. Recommend podiatry follow up. Appt schedule on 06/03. Continue with dressing changes. [facility] 05-25-2023 Evaluation + Plan note [...] Overall weak and will work with PT [facility] 05-25-2023 Evaluation + Plan note Associated Problem(s): Venous stasis dermatitis of both lower extremities 2/2 lymphedema. Continue with leg wraps daily and skin care regimen nightly. RLE swelling exacerbated with recent trauma [facility] 05-25-2023 Evaluation + Plan note Associated Problem(s): Atrial fibrillation with rapid ventricular response (HCC) Chronic problem, on cardizem. Mat have been on anticoagulation in the past but likely discontinued with his anemia. Reviewed recent echo which as normal. BP at goal < 140/90. [facility] 05-25-2023 Evaluation + Plan note Associated Problem(s): Thrombocytopenia (HCC) This is a chronic problem, is likely in the setting of his liver cirrhosis history. Last platelets were 95. We will monItor labs weekly. Consider hematology referral if platelets are less than 50. he is not having any active bleeding at this time [facility] 05-25-2023 Evaluation + Plan note Associated Problem(s): COPD (chronic obstructive pulmonary disease) (HCC) Chronic problem likely in setting of nicotine use. He does continue to smoke tobacco. We will continue his home inhalers. He is stable at this time and no signs of acute exacerbation. [facility] 05-25-2023 Evaluation + Plan note Associated [...] to monitor. Patient endorses pain and request Mac[place] be prescribed however he is high risk for opiate misuse so recommend nonopioid measures. [facility] 05-25-2023 Evaluation + Plan note Associated [...] to discuss this with his PCP. Per [place] laws I am unable to fill his Suboxone. Patient at risk for withdrawal symptoms. We will monitor him closely and treat symptoms appropriately. [facility] 05-25-2023 Evaluation + Plan note [...] indication for precautions. No ascites on exam [facility] 05-24-2023 History of Present illness Narrative Images from the original note were not included. [address] [address] Admission Date 05/23/23 Carmen Gilman is a [...] to discuss this with his PCP. Per [place] laws I am unable to fill [...] to monitor. Patient endorses pain and request Macomb be prescribed however he is high risk [...] who presents today for admission H&P to [facility]. Of note the patient did present to [place] 2 months ago however after few days [...] that during the hospitalization he was given Macomb for this and like to know if [...] this chart may have been created with [employer] voice recognition software. Occasional wrong-word or "sound-like" substitutions may have occurred due to inherent limitations of the voice recognition software. Please read the chart carefully and recognize, using context, where the substitutions have occurred. Electronically signed by: Nathan Collins M.D. documented in this encounter [facility] 04-26-2023 History of Present illness Narrative To all lower leg wounds, applied Aquacel Ag's and ABD's. To bilateral lower legs, applied triamcinolone, pink unna boots and coban. Pt tolerated well. Cap refill brisk. RLE completed by Vangie Lombardo LPN and LLE completed by Muna Gordillo RN. documented in this encounter [facility] 04-18-2023 History of Present illness Narrative Review [...] to cefadroxil however the patient did not picker and sorter load and unload the medication and had been off of [...] Unasyn and clindamycin. Discharge on Unsyn to [place] on 03/22 but then left AMA per [...] age Patient Teaching: Yes Family Teaching: No [place] Protocol/Time Out Completed under Procedure Documentation PROCEDURE DETAILS: Midline Insertion Procedure Veins evaluated with ultrasound and appropriate vein selected. 1% Lidocaine used to anesthetize insertion site. Using standard sterile technique access was obtained. 3 Kazakh, single lumen Midline placed in L Cephalic [...] not applicable 2. Perform timeout. Yes 3. Juice Weigher: If enter sterile field, uses sterile gown and gloves, cap, mask/eye protection. N/A 4. Prep site with ChloraPrep for 30 sec minimum (if femoral 120 sec minimum). Yes 5. Sterile technique to drape patient from head to toe. Yes During the procedure, did the clinician 1. Maintain a sterile field. Yes 2. Obtain a qualified second cutter IF 3 unsuccessful sticks. (except if emergent); [...] [X] Tray table within reach. Lot number: [id number] Expiration Date: 2023-10-20 Arm circumference: 29 cm [...] age Patient Teaching: Yes Family Teaching: No [place] Protocol/Time Out Completed under Procedure Documentation PROCEDURE DETAILS: Midline Insertion Procedure Veins evaluated with ultrasound and appropriate vein selected. 1% Lidocaine used to anesthetize insertion site. Using standard sterile technique access was obtained. 3 [place], single lumen Midline placed in L Cephalic [...] not applicable 2. Perform timeout. Yes 3. Juice Weigher: If enter sterile field, uses sterile gown and gloves, cap, mask/eye protection. N/A 4. Prep site with ChloraPrep for 30 sec minimum (if femoral 120 sec minimum). Yes 5. Sterile technique to drape patient from head to toe. Yes During the procedure, did the clinician 1. Maintain a sterile field. Yes 2. Obtain a qualified second cutter IF 3 unsuccessful sticks. (except if emergent); [...] [X] Tray table within reach. Lot number: [id number] Expiration Date: 2023-10-20 Arm circumference: 29 cm [...] due to underlying liver disease -patient seeing development and planning engineer Dr Dahl -Positive testing for positive platelet antibodies IIB/IIIA, possible ITP -Possible thalassemia, electrophoresis was not performed though according to lab review -reticulocyte percentage 2.2, iron, ferritin, B12 and folate normal in past -patient seeing development and planning engineer Dr Dahl -Positive testing for positive platelet [...] -Patient saw podiatry Dr. Pelayo in [facility] and then to [facility] with Dr. Bryan; plan shave procedure [...] Please note Portions of this note utilized [employer] software, please excuse any typographical or grammatical errors. documented in this encounter [facility] 04-07-2023 History of Present illness Narrative Review [...] to cefadroxil however the patient did not picker and sorter load and unload the medication and had been off of [...] Unasyn and clindamycin. Discharge on Unsyn to [place] on 03/22 but then left AMA per [...] age Patient Teaching: Yes Family Teaching: No [place] Protocol/Time Out Completed under Procedure Documentation PROCEDURE DETAILS: Midline Insertion Procedure Veins evaluated with ultrasound and appropriate vein selected. 1% Lidocaine used to anesthetize insertion site. Using standard sterile technique access was obtained. 3 [place], single lumen Midline placed in L Cephalic [...] not applicable 2. Perform timeout. Yes 3. Juice Weigher: If enter sterile field, uses sterile gown and gloves, cap, mask/eye protection. N/A 4. Prep site with ChloraPrep for 30 sec minimum (if femoral 120 sec minimum). Yes 5. Sterile technique to drape patient from head to toe. Yes During the procedure, did the clinician 1. Maintain a sterile field. Yes 2. Obtain a qualified second cutter IF 3 unsuccessful sticks. (except if emergent); [...] [X] Tray table within reach. Lot number: [id number] Expiration Date: 2023-10-20 Arm circumference: 29 cm [...] age Patient Teaching: Yes Family Teaching: No [place] Protocol/Time Out Completed under Procedure Documentation PROCEDURE DETAILS: Midline Insertion Procedure Veins evaluated with ultrasound and appropriate vein selected. 1% Lidocaine used to anesthetize insertion site. Using standard sterile technique access was obtained. 3 [place], single lumen Midline placed in L Cephalic [...] not applicable 2. Perform timeout. Yes 3. Juice Weigher: If enter sterile field, uses sterile gown and gloves, cap, mask/eye protection. N/A 4. Prep site with ChloraPrep for 30 sec minimum (if femoral 120 sec minimum). Yes 5. Sterile technique to drape patient from head to toe. Yes During the procedure, did the clinician 1. Maintain a sterile field. Yes 2. Obtain a qualified second cutter IF 3 unsuccessful sticks. (except if emergent); [...] [X] Tray table within reach. Lot number: [id number] Expiration Date: 2023-10-20 Arm circumference: 29 cm [...] due to underlying liver disease -patient seeing development and planning engineer Dr Dahl -Positive testing for positive platelet antibodies IIB/IIIA, possible ITP -Possible thalassemia, electrophoresis was not performed though according to lab review -reticulocyte percentage 2.2, iron, ferritin, B12 and folate normal in past -patient seeing development and planning engineer Dr Dahl -Positive testing for positive platelet [...] -Patient saw podiatry Dr. Pelayo in [facility] and then to [facility] with Dr. Bryan; plan shave procedure [...] Please note Portions of this note utilized [employer] dictation software, please excuse any typographical or grammatical errors. documented in this encounter [facility] 04-07-2023 Miscellaneous Notes Addended by: RESHMA GOODRICH on: 04/07/2023 12:13 PM Modules accepted: Orders documented in this encounter [facility] 04-07-2023 Note Addended by: RESHMA CHANEL on: 04/07/2023 12:13 PM Modules accepted: Orders [facility] 03-31-2023 History of Present illness Narrative Review [...] to cefadroxil however the patient did not picker and sorter load and unload the medication and had been off of [...] Unasyn and clindamycin. Discharge on Unsyn to [place] on 03/22 but then left AMA per [...] age Patient Teaching: Yes Family Teaching: No [place] Protocol/Time Out Completed under Procedure Documentation PROCEDURE DETAILS: Midline Insertion Procedure Veins evaluated with ultrasound and appropriate vein selected. 1% Lidocaine used to anesthetize insertion site. Using standard sterile technique access was obtained. 3 Kazakh, single lumen Midline placed in L Cephalic [...] not applicable 2. Perform timeout. Yes 3. Juice Weigher: If enter sterile field, uses sterile gown and gloves, cap, mask/eye protection. N/A 4. Prep site with ChloraPrep for 30 sec minimum (if femoral 120 sec minimum). Yes 5. Sterile technique to drape patient from head to toe. Yes During the procedure, did the clinician 1. Maintain a sterile field. Yes 2. Obtain a qualified second cutter IF 3 unsuccessful sticks. (except if emergent); [...] [X] Tray table within reach. Lot number: [id number] Expiration Date: 2023-10-20 Arm circumference: 29 cm [...] age Patient Teaching: Yes Family Teaching: No [place] Protocol/Time Out Completed under Procedure Documentation PROCEDURE DETAILS: Midline Insertion Procedure Veins evaluated with ultrasound and appropriate vein selected. 1% Lidocaine used to anesthetize insertion site. Using standard sterile technique access was obtained. 3 Kazakh, single lumen Midline placed in L Cephalic [...] not applicable 2. Perform timeout. Yes 3. Juice Weigher: If enter sterile field, uses sterile gown and gloves, cap, mask/eye protection. N/A 4. Prep site with ChloraPrep for 30 sec minimum (if femoral 120 sec minimum). Yes 5. Sterile technique to drape patient from head to toe. Yes During the procedure, did the clinician 1. Maintain a sterile field. Yes 2. Obtain a qualified second cutter IF 3 unsuccessful sticks. (except if emergent); [...] [X] Tray table within reach. Lot number: [id number] Expiration Date: 2023-10-20 Arm circumference: 29 cm [...] due to underlying liver disease -patient seeing development and planning engineer Dr Dahl -Positive testing for positive platelet antibodies IIB/IIIA, possible ITP -Possible thalassemia, electrophoresis was not performed though according to lab review -reticulocyte percentage 2.2, iron, ferritin, B12 and folate normal in past -patient seeing development and planning engineer Dr Dahl -Positive testing for positive platelet [...] deformities -Patient saw podiatry Dr. Pelayo in [place] and then to [facility] with Dr. Bryan; plan shave procedure [...] Please note Portions of this note utilized [employer] dictation software, please excuse any typographical or grammatical errors. documented in this encounter [facility] 03-24-2023 Evaluation + Plan note Associated [...] as well as treatment of IV antibiotics. [facility] 03-24-2023 Miscellaneous Notes Associated Problem(s): [...] Hayden, infectious disease. documented in this encounter [facility] 03-24-2023 Evaluation + Plan note [...] is monitored if leaving at all times. [facility] 03-24-2023 Evaluation + Plan note Associated Problem(s): Nondependent cocaine abuse (HCC) Hospital chart reviewed. His urine drug screen did have cocaine, benzodiazepines as well as buprenorphine [facility] 03-24-2023 Evaluation + Plan note [...] day for now as well. Will reassess. [facility] 03-24-2023 Evaluation + Plan note Associated Problem(s): Essential hypertension This is a chronic problem, currently controlled. Continue medications. Blood pressure goal less than 140/90. [facility] 03-24-2023 Evaluation + Plan note Associated Problem(s): COPD (chronic obstructive pulmonary disease) (HCC) Chronic problem likely in setting of nicotine use. He does continue to smoke tobacco. Reviewed his chart and onto similar inhalers. We will add on albuterol continue Symbicort. Discontinue the glycopyrrolate. Consider adding on Spiriva. [facility] 03-24-2023 Evaluation + Plan note Associated Problem(s): Chronic respiratory failure (HCC) Chronic, stable. On oxygen via nasal cannula. He does have COPD. Which is currently stable. Continue with oxygen. [facility] 03-24-2023 Evaluation + Plan note Associated Problem(s): Cirrhosis (HCC) This is a chronic problem, possibly secondary to hepatitis C infection. He is pancytopenic. Follows with Dr. Hayden, infectious disease. [facility] 03-23-2023 History of Present illness Narrative Images from the original note were not included. [address] [address] Carmen Gilman is a 57 y.o. adult [...] who presents today for admission H&P to [facility]. He was admitted to the hospital [...] ventricular response (HCC) Acute congestive heart failure ([facility]) Morbid obesity with BMI of 40.0-44.9, adult ([facility]) Type 2 diabetes mellitus without complication, without long-term current use of insulin (HCC) COPD (chronic obstructive pulmonary disease) (HCC) Hypertension Polysubstance abuse (HCC) Leukocytosis Nondependent cocaine abuse (HCC) Marijuana abuse Unresponsiveness Hypotension Acute pain of left hip Pain of left femur Sepsis ([facility]) Abnormal brain CT Bradycardia Cirrhosis (HCC) Cellulitis Past Surgical History: Procedure Laterality Date APPENDECTOMY ARTHROPLASTY KNEE TOTAL ROBOTIC ASSISTED Right 01/08/2020 Procedure: Right Total Knee Replacement Robotic; Surgeon: Sofía Dukes MD; Location: [facility] [place]; Service: Ortho-Robotics FOOT SURGERY Left MANDIBLE FRACTURE [...] this chart may have been created with [employer] voice recognition software. Occasional wrong-word or "sound-like" substitutions may have occurred due to inherent limitations of the voice recognition software. Please read the chart carefully and recognize, using context, where the substitutions have occurred. Electronically signed by: Nathan Collins M.D. documented in this encounter [facility] 03-22-2023 Nurse Note Report called to nurse at [facility]. [facility] 03-22-2023 Miscellaneous Notes Report called to nurse at [facility]. Midline catheter intact. Telemetry removed. Prescriptions sent [...] LLE dressing changed. Melatonin given for insomnia. FARM EQUIPMENT ENGINEER attempted tx two times this morning, [...] be discharge to home. Attempted PT eval [id number]. Pt adamantly declining any participation with therapy evaluations until he receives something "stronger" for pain. Dr. Nelson notified upon entering room, and states plan to place order for medication and nurse also notified. PT to return at a later time as pt agreeable to participate. No services rendered at this time. Kayla Atwood, PT, DPT 03/17/2023 Order received. Initiated evaluation from [id number] for interview portion of evaluation. Pt's speech [...] light in reach. documented in this encounter [facility] 03-22-2023 Nurse Note Midline catheter intact. Telemetry removed. Prescriptions sent with transport in envelope. Discharged. [facility] 03-22-2023 Hospital course Narrative Discharge Summary Summary [...] Hayden following- unasyn x 14 days at [place] Drug abuse- drug screen + cocaine/benzo/buprren- home [...] diet as tolerated. Discharge Follow-up: Ani Worley APRN-PROCESS CAMERA OPERATOR [address] [facility] [address] Follow up in 1 week(s) Nathan Hayden MD [address] [facility] [address] Follow up in 1 week(s) Discharge Disposition: Patient will be discharged to [facility] in stable condition. Discharge Time: Including assessment, planning, and medication reconciliation was 9 minutes Jolanta Crook CNP completing Discharge Summary for Dr. Nelson Please note portions of this note utilized [employer] dictation software, please excuse any typographical or [...] spent 34 min documented in this encounter [facility] 03-22-2023 History of Present illness Narrative Images [...] to cefadroxil however the patient did not picker and sorter load and unload the medication and had been off of [...] issues or concerns today. Pending transfer to [facility]. Legs dressed bilaterally ROS A complete [...] 8 mg, Sublingual, Daily, Jolanta K Sgambellone, DRAFTER AUTOMOTIVE DESIGN LAYOUT-PROCESS CAMERA OPERATOR, 8 mg at 03/22/23 0755 collagenase (SANTYL) [...] mg, 40 mg, Oral, Daily, Jolanta Crook DRAFTER AUTOMOTIVE DESIGN LAYOUT-PROCESS CAMERA OPERATOR, 40 mg at 03/22/23 075 Gabapentin (NEURONTIN) [...] <50 IU/L Final Comment: Testing performed at [place], [place] [address] 03/16/2023 05:53 PM 21 <50 IU/L Final [...] other than and . Testing performed at [place], [place] [address] CBC Lab Results Component Value Date WBC [...] to Top Result Report CULTURE WOUND (Order #[id number]) on 03/11/23 View [employer] Info CULTURE WOUND (Order #[id number]) on 03/11/23 CULTURE WOUND: Patient Communication Add Comments Not seen Collection Information Specimen ID: [id number] Swab LEG Collected: 03/11/2023 12:23 PM 200 Received: 03/11/2023 12:23 PM Resulting Agency: [facility] - [address] [facility] [address] [facility] [place] [address] Wound culture 02/27 with MSSA Staphylococcus aureus [...] due to underlying liver disease -patient seeing development and planning engineer Dr Dahl -Positive testing for positive platelet antibodies IIB/IIIA, possible ITP -Possible thalassemia, electrophoresis was not performed though according to lab review -reticulocyte percentage 2.2, iron, ferritin, B12 and folate normal in past -patient seeing development and planning engineer Dr Dahl -Positive testing for positive platelet [...] -Patient saw podiatry Dr. Pelayo in [facility] and then to [facility] with Dr. Bryan; plan shave procedure [...] show reactive adenopathy COPD.RAD -inhalers/BTs Disposition -Pending [facility] in [place] -follow up in infectious disease clinic 7 [...] OTR/L 03/22/2023 Call received from Mini at [place]. They have received prior auth for Mr [...] ecf auth pending See orders Mini from [place] here and has met with Mr Gilman. She states they will accept Mr Gilman and have will start prior auth. Updated clinical sent to [facility] at [place]. She states they have not started prior auth yet. [employer] has instructed she do an on sight [...] mg 8 mg Sublingual Daily Jolantamia Ramirezne, DRAFTER AUTOMOTIVE DESIGN LAYOUT-PROCESS CAMERA OPERATOR 8 mg at 03/21/23 0833 collagenase (SANTYL) [...] mg 40 mg Oral Daily Jolanta Crook, DRAFTER AUTOMOTIVE DESIGN LAYOUT-PROCESS CAMERA OPERATOR 40 mg at 03/21/23 0833 Gabapentin (NEURONTIN) [...] and cellulitis of BLE. Estimated needs: Calories: 3494-3397 kcal, (25-30 kcal/kg AdjBW), Protein: 105-130 g [...] fall Subjective Reports This PT approached by community health nursing director. States patient would like to get up to chair and requests assistance. Cognitive Status Examination Level of Consciousness alert;cooperative Personal Safety and Judgment at risk behaviors demonstrated Objective Therapeutic Interventions Patient sitting EOB upon arrival, requesting to get up to chair. Socks donned by community health nursing director. He requested height of bed be [...] to cefadroxil however the patient did not picker and sorter load and unload the medication and had been off of [...] his legs are improving. Pending transfer to [facility]. Midline was ordered already and pending [...] 8 mg, Sublingual, Daily, Jolanta K Sgambellone, DRAFTER AUTOMOTIVE DESIGN LAYOUT-PROCESS CAMERA OPERATOR, 8 mg at 03/21/23 0833 collagenase (SANTYL) ointment 1 Application, 1 Application, Topical, Daily, Power Nelson MD, 1 Application at 03/21/23 0835 Docusate (COLACE) capsule 100 mg, 100 mg, Oral, Q12H, Nestro Alonzo MD, 100 mg at 03/21/23 0832 Enoxaparin Sodium (LOVENOX) injection 40 mg, 40 mg, Subcutaneous, QHS, Isabel Tang CNP, 40 mg at 03/20/23 204 Fluticasone-Salmeterol (ADVAIR HFA) 115-21 MCG/ACT inhaler 2 puff, 2 puff, Inhalation, BID, Isabel Tang CNP, 2 puff at 03/21/23 0717 furOSEmide (LASIX) tablet 40 mg, 40 mg, Oral, Daily, Jolanta Ramirezne, DRAFTER AUTOMOTIVE DESIGN LAYOUT-PROCESS CAMERA OPERATOR, 40 mg at 03/21/23 0833 Gabapentin (NEURONTIN) [...] <50 IU/L Final Comment: Testing performed at [place], [place] [address] 03/16/2023 05:53 PM 21 <50 IU/L Final [...] other than and . Testing performed at [place], [place] [address] CBC Lab Results Component Value Date WBC [...] to Top Result Report CULTURE WOUND (Order #[id number]) on 03/11/23 View SmartLink Info CULTURE WOUND (Order #[id number]) on 03/11/23 CULTURE WOUND: Patient Communication Add Comments Not seen Collection Information Specimen ID: [id number] Swab LEG Collected: 03/11/2023 12:23 PM 200 Received: 03/11/2023 12:23 PM Resulting Agency: [address] [address] Wound culture 02/27 with MSSA Staphylococcus aureus [...] NGTD -wound culture 03/17 with normal skin osbeida -local dressings, wound care with elevation and [...] due to underlying liver disease -patient seeing development and planning engineer Dr Dahl -Positive testing for positive platelet antibodies IIB/IIIA, possible ITP -Possible thalassemia, electrophoresis was not performed though according to lab review -reticulocyte percentage 2.2, iron, ferritin, B12 and folate normal in past -patient seeing development and planning engineer Dr Dahl -Positive testing for positive platelet [...] -Patient saw podiatry Dr. Pelayo in [facility] and then to [facility] with Dr. Bryan; plan shave procedure [...] -patient states he wishes to go to [facility] in [place] -follow up in infectious disease clinic 7-10 days after discharge Nathan Hayden MD [facility] LOS: 4 days SUBJECTIVE: Patient resting [...] 8 mg Sublingual Daily Jolanta K Sgambellone, DRAFTER AUTOMOTIVE DESIGN LAYOUT-PROCESS CAMERA OPERATOR collagenase (SANTYL) ointment 1 Application 1 Application [...] elements of the care plan with the LICENSED PLUMBER and I agree with the findings and [...] to cefadroxil however the patient did not picker and sorter load and unload the medication and had been off of [...] 8 mg, Sublingual, Daily, Jolanta K Sgambellone, DRAFTER AUTOMOTIVE DESIGN LAYOUT-PROCESS CAMERA OPERATOR, 8 mg at 03/20/23 1007 collagenase (SANTYL) [...] 40 mg, Oral, Daily, Jolanta Payan Sgambellone, DRAFTER AUTOMOTIVE DESIGN LAYOUT-PROCESS CAMERA OPERATOR, 40 mg at 03/20/23 1110 Gabapentin (NEURONTIN) [...] other than and . Testing performed at [facility], [place], [place] [address] CBC Lab Results Component Value Date WBC [...] to Top Result Report CULTURE WOUND (Order #[id number]) on 03/11/23 View Touchotel Info CULTURE WOUND (Order #[id number]) on 03/11/23 CULTURE WOUND: Patient Communication Add Comments Not seen Collection Information Specimen ID: [id number] Swab LEG Collected: 03/11/2023 12:23 PM 200 Received: 03/11/2023 12:23 PM Resulting Agency: [facility] - [address] [facility] [address] [facility] [address] Wound culture 02/27 with MSSA Staphylococcus aureus [...] due to underlying liver disease -patient seeing development and planning engineer Dr Dahl -Positive testing for positive platelet antibodies IIB/IIIA, possible ITP -Possible thalassemia, electrophoresis was not performed though according to lab review -reticulocyte percentage 2.2, iron, ferritin, B12 and folate normal in past -patient seeing development and planning engineer Dr Dahl -Positive testing for positive platelet antibodies IIB/IIIA, possible ITPl Soluble transferrin elevated 27 -White count 2.2, 2.5, 2.6, 2.1 -Hemoglobin 10, 9.9, 9.3, 9.8 -Platelets of 91, 81, 87, 94 -Stably low Obesity -Patient with ongoing efforts to lose weight -BMI 31 Right lower extremity wound/feet& toe deformities -Patient saw podiatry Dr. Pelayo in [place] and then to [facility] with Dr. Bryan; plan shave procedure [...] -patient states he wishes to go to [facility] and Mary Hayden MD [facility] LOS: 3 days SUBJECTIVE: Patient resting [...] Please note Portions of this note utilized Curemark dictation software, please excuse any typographical or grammatical errors. Associated attestation - Power Nelson MD - 03/20/2023 8:47 PM EDT Pt seen and examined on march 19 2023 I have independently interviewed and examined the patient. I have discussed armijo elements of the care plan with the LICENSED PLUMBER and I agree with the findings and [...] to cefadroxil however the patient did not picker and sorter load and unload the medication and had been off of [...] Patient states he wants to go to [facility]. Patient states right upper extremity [...] other than and . Testing performed at [facility], [place], [place] [address] CBC Lab Results Component Value Date WBC [...] to Top Result Report CULTURE WOUND (Order #[id number]) on 03/11/23 View SmartLink Info CULTURE WOUND (Order #[id number]) on 03/11/23 CULTURE WOUND: Patient Communication Add Comments Not seen Collection Information Specimen ID: [id number] Swab LEG Collected: 03/11/2023 12:23 PM 200 Received: 03/11/2023 12:23 PM Resulting Agency: [facility] - [address] [place] [address] [address] [facility] [address] Wound culture 02/27 with MSSA Staphylococcus aureus [...] due to underlying liver disease -patient seeing development and planning engineer Dr Dahl -Positive testing for positive platelet antibodies IIB/IIIA, possible ITP -Possible thalassemia, electrophoresis was not performed though according to lab review -reticulocyte percentage 2.2, iron, ferritin, B12 and folate normal in past -patient seeing development and planning engineer Dr Dahl -Positive testing for positive platelet antibodies IIB/IIIA, possible ITPl Soluble transferrin elevated 27 -White count 2.2, 2.5, 2.6 -Hemoglobin 10, 9.9, 9.3 -Platelets of 91, 81, 87 -Stably low Obesity -Patient with ongoing efforts to lose weight -BMI 31 Right lower extremity wound/feet& toe deformities -Patient saw podiatry Dr. Pelayo in [facility] and then to [facility] with Dr. Bryan; plan shave procedure [...] -patient states he wishes to go to [facility] and [place] Dr. Nathan Hayden MD 03/18/23 1600 Time [...] Rest 8- severe pain Objective Therapeutic Interventions FARM EQUIPMENT ENGINEER instructed pt in supine to sit [...] and all needs met. Meron Arias PTA [facility] LOS: 2 days SUBJECTIVE: Patient resting [...] 4 mg 4 mg Intravenous Q4H PRN eNstor Alonzo MD Pantoprazole (PROTONIX) tablet DR 40 [...] Please note Portions of this note utilized Curemark dictation software, please excuse any typographical or grammatical errors. Associated attestation - Power Nelson MD - 03/18/2023 7:41 PM EDT I have independently interviewed and examined the patient. I have discussed armijo elements of the care plan with the LICENSED PLUMBER and I agree with the findings and [...] patient, he asks about a referral to [place]. Updated him on where things stand with [facility], he's still agreeable to [facility] at discharge but wants to try [facility] now. Spoke with Mireille at [facility], they do not take patient's insurance. Updated patient who will stick with [facility]. Followed up with Gaby/[facility]. They are unable [...] to cefadroxil however the patient did not picker and sorter load and unload the medication and had been off of [...] other than and . Testing performed at [place], [place] [address] CBC Lab Results Component Value Date WBC [...] to Top Result Report CULTURE WOUND (Order #[id number]) on 03/11/23 View Touchotel Info CULTURE WOUND (Order #[id number]) on 03/11/23 CULTURE WOUND: Patient Communication Add Comments Not seen Collection Information Specimen ID: [id number] Swab LEG Collected: 03/11/2023 12:23 PM 200 Received: 03/11/2023 12:23 PM Resulting Agency: [facility] - [address] [place] [address] Wound culture 02/27 with MSSA Staphylococcus aureus [...] due to underlying liver disease -patient seeing development and planning engineer Dr Dahl -Positive testing for positive platelet antibodies IIB/IIIA, possible ITP -Possible thalassemia, electrophoresis was not performed though according to lab review -White count 2.2, 2.5 -Hemoglobin 10, 9.9 -Platelets of 91, 81 -reticulocyte percentage 2.2, iron, ferritin, B12 and folate normal in past -patient seeing development and planning engineer Dr Dahl -Positive testing for positive platelet antibodies IIB/IIIA, possible ITPl Soluble transferrin elevated 27 Obesity -Patient with ongoing efforts to lose weight -BMI 31 Right lower extremity wound/feet& toe deformities -Patient saw podiatry Dr. Pelayo in [facility] and then to [facility] with Dr. Bryan; plan shave procedure [...] digna faxed with encryption to Gaby at [facility]. 03/17/23 1436 Time In/Out Time In 1405 Time Out 1436 Total Visit Time 31 minutes Total Treatment Time (skilled, billable minutes) 29 minutes + 14 minutes from earlier encounter and interview with pt from [id number]. Split evaluation secondary to pt declining to [...] receiving pain medication. Relayed to pt that PROCESS CAMERA OPERATOR, RN, and physician are all aware and [...] > LLE edema Supine to Sit Mobility Sargent Level: Supine->Sit stand-by assist Physical Assist: Supine->Sit (1 person assist) Bed Features/Set-up: Supine->Sit Head of bed elevated Sit to Stand Transfer Sargent Level: Sit->Stand moderate assist (50% patient effort) [...] less physical assistance. Stand to Sit Transfer Sargent Level: Stand->Sit contact guard assist Assistive Device: Stand->Sit gait belt;2 wheeled walker Skilled Rationale Positioning;Sequencing;Hand placement;Verbal cues;Cues for increased safety Functional Mobility Sargent Level: Functional Mobility/Gait minimum assist (75% patient [...] (range of motion);strengthening;transfer training Discharge Destination Recommendation Assisted Facility Barriers to discharge home Patient needs [...] at friends house he was living in. submarine worker aware of situation. Previous Level of [...] to conceal chewing tobacco within R hand delicatessen clerk. Pt receptive to hand placement on walker with hand over hand assist for safety Supine to Sit Mobility Sargent Level: Supine->Sit stand-by assist Physical Assist: Supine->Sit 1 person + 1 person to manage equipment Bed Features/Set-up: Supine->Sit Head of bed elevated (slightly) Sit to Stand Transfer Sargent Level: Sit->Stand (Mod A x 2) Assistive Device: Sit->Stand gait belt;2 wheeled walker Skilled Rationale Positioning;Verbal cues;Hand placement;Full extension to upright positioning/posture;Finding/maint aining midline positioning;Cues for increased safety Stand to Sit Transfer Sargent Level: Stand->Sit contact guard assist Physical Assist: Stand->Sit 2 person assist Assistive Device: Stand->Sit gait belt;2 wheeled walker;armed chair Skilled Rationale Positioning;Verbal cues;Hand placement;Controlled descent for sitting Bed-Chair Transfer Sargent Level: Bed<->Chair (Mod A x 2 for initial stand; transfer improved to Min-CGA x 2 for remainder of transfer.) Physical Assist: Bed<->Chair 2 person assist Assistive Device: Bed<->Chair gait belt;2 wheeled walker;armed chair Skilled Rationale Positioning;Hand placement;Verbal cues;Full extension to upright positioning/posture Gait Assessment Skilled Intervention/Details - Gait refused gait beyond transfer to chair CURRENT [facility] Basic Mobility Inpatient Short Form Turning [...] a railing 1 - Total Assistance CURRENT [facility] Mobility Raw Score 15 CURRENT [facility] Mobility Functional Limitation/Modifier 57.70% Currently Impaired [...] mobility;Reaching difficulty;Difficulty carrying/lifting objects;Limited ability to complete senior mobile web developer/maintenance;Limited standing tolerance Barriers to Treatment (Co-Morbidities and/or Personal Factors) patient agitation, anemia, BLE cellulits Rehab Potential (PT Eval) good Therapy Frequency 6 times a week (1-2x/day as tolerated) Planned Therapy Interventions balance training;bed mobility training;endurance;functional activity tolerance;gait training;postural re-education;ROM;strengthening;tr ansfer training;stretching;wheelchair management/propulsion training;edema control Discharge Destination Recommendation Assisted Facility Barriers to discharge home Patient needs [...] is a 57 yo male presenting to [facility] with BLE edema. PT evaluation completed [...] information faxed with encryption to Gaby at [place]. Will send PT/ OT evals when available. Spoke with Daria at [facility]. They are no longer providing home health services as patient requested discharge on 03/15/23. Summary: RD Progress Note INITIAL INPATIENT NUTRITION ASSESSMENT Mr. Carmen Gilman is a 57 y.o. male was admitted to [facility] for: No diagnosis found. Nutrition Assessment Subjective [...] 09/29/22 101.7 kg (224 lb 3.2 oz) [place] body weight: 77.6 kg (171 lb 1.9 oz) Adjusted ideal body weight: 88.3 kg (194 lb 10.7 oz) Body mass index is 31.19 kg/m . Classified as: Class I Obesity Recent weight loss: No Intake Evaluation: EER: Calories: 2146-5591 kcal (25-30 kcal/kg AdjBW) Protein: 105-130 g [...] placement at discharge. His first choice is [facility] and his second choice is [facility]. He begins talking about being in pain and is requesting IV pain medication. Unable to understand anything else patient is attempting to say. Called and spoke with Gaby Laguerre in admissions at [facility]. She is requesting referral information be emailed to her at [email or web address] Will email referral when needed documentation is available. Will continue to follow. documented in this encounter [facility] 03-22-2023 Progress note Formatting of t his note might be different from the original. Multiple attempts this morning for PT tx, pt declined with reasons being awaiting breakfast and had just received pain medication. Then, just finished OT and wished to eat ice cream. No PT tx rendered [facility] 03-22-2023 Progress note Formatting of t his note might be different from the original. Approached pt for OT treatment but pt currently eating breakfast at this time. Will follow up for OT treatment as pt is available and appropriate. ROSA Moreno, OTR/L 03/22/2023 [facility] 03-21-2023 Nurse Note Assessment unchanged from previous unless otherwise noted. [facility] 03-21-2023 Progress note Formatting of t his note might be different from the original. Patient being assisted back to bed by staff upon PT arrival. States he has been up in chair and requests to rest at this time. Will follow. [facility] 03-21-2023 Hospital Discharge instructions Isabel Tang CNP - 03/21/2023 1:43 PM EDT Unasyn IV per DR Hayden at [place] The following attachments cannot be sent through Care Everywhere.[facility] ([facility]) ([place])documented in this encounter [facility] 03-21-2023 Nurse Note Assessment unchanged from previous unless otherwise noted. [facility] 03-21-2023 Procedure note Associated Ord er(s): PICC LINE PLACEMENT/REMOVAL; PICC LINE PLACEMENT/REMOVAL I have discussed the following issues with the ordering Clinician: Dr. Hayden Procedure explained to patient. Anatomical distortion to interfere with placement:no known restriction Arm preference for venous access: Left Arm Patient is alert, cooperative, no distress, appears stated age Patient Teaching: Yes Family Teaching: No [place] Protocol/Time Out Completed under Procedure Documentation PROCEDURE DETAILS: Midline Insertion Procedure Veins evaluated with ultrasound and appropriate vein selected. 1% Lidocaine used to anesthetize insertion site. Using standard sterile technique access was obtained. 3 Kazakh, single lumen Midline placed in L Cephalic [...] not applicable 2. Perform timeout. Yes 3. Juice Weigher: If enter sterile field, uses sterile gown and gloves, cap, mask/eye protection. N/A 4. Prep site with ChloraPrep for 30 sec minimum (if femoral 120 sec minimum). Yes 5. Sterile technique to drape patient from head to toe. Yes During the procedure, did the clinician 1. Maintain a sterile field. Yes 2. Obtain a qualified second cutter IF 3 unsuccessful sticks. (except if emergent); [...] [X] Tray table within reach. Lot number: [id number] Expiration Date: 2023-10-20 Arm circumference: 29 cm Internal length: 11 cm External length: 0 cm [facility] 03-21-2023 Procedure note Associated Ord er(s): PICC LINE PLACEMENT/REMOVAL; PICC LINE PLACEMENT/REMOVAL I have discussed the following issues with the ordering Clinician: Dr. Hayden Procedure explained to patient. Anatomical distortion to interfere with placement:no known restriction Arm preference for venous access: Left Arm Patient is alert, cooperative, no distress, appears stated age Patient Teaching: Yes Family Teaching: No [place] Protocol/Time Out Completed under Procedure Documentation PROCEDURE DETAILS: Midline Insertion Procedure Veins evaluated with ultrasound and appropriate vein selected. 1% Lidocaine used to anesthetize insertion site. Using standard sterile technique access was obtained. 3 Kazakh, single lumen Midline placed in L Cephalic [...] not applicable 2. Perform timeout. Yes 3. Juice Weigher: If enter sterile field, uses sterile gown and gloves, cap, mask/eye protection. N/A 4. Prep site with ChloraPrep for 30 sec minimum (if femoral 120 sec minimum). Yes 5. Sterile technique to drape patient from head to toe. Yes During the procedure, did the clinician 1. Maintain a sterile field. Yes 2. Obtain a qualified second cutter IF 3 unsuccessful sticks. (except if emergent); [...] [X] Tray table within reach. Lot number: [id number] Expiration Date: 2023-10-20 Arm circumference: 29 cm Internal length: 11 cm External length: 0 cm documented in this encounter [facility] 03-21-2023 Plan of care note Problem: Skin [...] encouraged Pressure Reduction Devices: pressure-redistributing mattress utilized [facility] 03-21-2023 Nurse Note Pt appears asleep at this time with no distress noted and unlabored breathing on room air. Call hinkle is in reach. [facility] 03-21-2023 Nurse Note Assessment remains unchanged unless otherwise noted in flow sheet. Pt medicated via MAR for 8/10 leg pain and ATB hung. Ice cream given per request and denies any other needs. Call hinkle is in reach. [facility] 03-20-2023 Nurse Note Pt appears asleep at this time with no distress noted. Unlabored breathing on room air. Dressings appear dry and intact. Call hinkle is in reach. [facility] 03-20-2023 Nurse Note Assessment unchanged from previous assessment by this RN unless otherwise noted in the flowsheet. Patient appears comfortable, no signs of distress. Call light within reach. [facility] 03-20-2023 Nurse Note Assessment unchanged from previous assessment by this RN unless otherwise noted in the flowsheet. Patient appears comfortable, no signs of distress. Call light within reach. [facility] 03-20-2023 Plan of care note Problem: [...] decrease fall risk at discharge. Outcome: Ongoing [facility] 03-20-2023 Nurse Note Pt resting in bed with eyes closed. Respirations even and non-labored. Assessment without changes. HOB up. Call light in reach. [facility] 03-20-2023 Nurse Note Pt resting in bed with eyes open. Alert and oriented x3. Pt requesting pain medication for bilateral leg and generalized pain. Pt rates pain 8/10 on pain scale. Medicated with Dilaudid as ordered. Assessment unchanged at this time. HOB up. Call light in reach. [facility] 03-19-2023 Nurse Note Pt sitting up in chair at bedside. Assisted to bed at this time. Pt medicated with Dilaudid for c/o pain to BLE. Pt alert and oriented x3. Speech is garbled and difficult to understand. Lung sound clear but diminished. Dressing clean, dry and intact to BLE. Edema remains to BLE. HOB up. Call light in reach. [facility] 03-19-2023 Nurse Note Assessment unchanged from previous assessment by this RN unless otherwise noted in the flowsheet. Patient appears comfortable, no signs of distress. Call light within reach. [facility] 03-19-2023 Nurse Note Assessment unchanged from previous assessment by this RN unless otherwise noted in the flowsheet. Patient appears comfortable, no signs of distress. Call light within reach. [facility] 03-19-2023 Nurse Note Previous assessment unchanged. [facility] 03-19-2023 Plan of care note Problem: [...] decrease fall risk at discharge. Outcome: Ongoing [place] [facility] Previous assessment unchanged. LLE dressing changed. Melatonin given for insomnia. [facility] 03-18-2023 Progress note Formatting of t his note might be different from the original. FARM EQUIPMENT ENGINEER attempted tx two times this morning, pt declined both stating I haven't had pain meds and I can't do anything without them." Educated pt on importance of getting up and participating in strengthening and mobility exercises to get better and stay strong but pt continued to decline tx. No services rendered. Meron Arias PTA [facility] 03-18-2023 Nurse Note Patient refused. Patient not in weigh bed. RN notified [facility] 03-18-2023 Plan of care note Problem: [...] encouraged Pressure Reduction Devices: pressure-redistributing mattress utilized [facility]signal [facility] 03-18-2023 Nurse Note Pt appears asleep at this time with no distress noted. Unlabored breathing on room air. IV infusing at this time and call hinkle is in reach. [facility] 03-18-2023 Nurse Note Assessment remains unchanged unless otherwise noted in flow sheet. Pt medicated for 9/10 leg pain via MAR. IV infusing and call hinkle is in reach. Pt requests a Pepsi and strawberry ice cream. [facility] 03-17-2023 Progress note Formatting of t his note might be different from the original. I certify that this patient requires inpatient services at this time. Plans for post hospitalization care will be discharge to home. [facility] 03-17-2023 History and physical note Chief [...] Please note Portions of this note utilized Curemark dictation software, please excuse any typographical or grammatical errors. Associated attestation - Power Nelson MD - 03/17/2023 9:09 PM EDT I have independently interviewed and examined the patient. I have discussed armijo elements of the care plan with the LICENSED PLUMBER and I agree with the findings and care plan as stated above. Time spent performing exam and reviewing diagnostics results, images and labs and discussing care plan with nurse practitioner and consulting physicians was 76 minutes D/w dr alonzo Pt transferred from [facility] to [facility] Failed outpt atbx therapy Dr hayden to see Iv atbx Wound care Pt complaints of pain Heart rrr Lungs clear Abd soft bs+ ascites Legs bilat edemas and wounds See orders [facility] 03-17-2023 History and physical note Chief [...] Please note Portions of this note utilized Curemark dictation software, please excuse any typographical or grammatical errors. Associated attestation - Power Nelson MD - 03/17/2023 9:09 PM EDT I have independently interviewed and examined the patient. I have discussed armijo elements of the care plan with the LICENSED PLUMBER and I agree with the findings and care plan as stated above. Time spent performing exam and reviewing diagnostics results, images and labs and discussing care plan with nurse practitioner and consulting physicians was 76 minutes D/w dr alonzo Pt transferred from [facility] to [facility] Failed outpt atbx therapy Dr hayden to see Iv atbx Wound care Pt complaints of pain Heart rrr Lungs clear Abd soft bs+ ascites Legs bilat edemas and wounds See orders documented in this encounter [facility] 03-17-2023 Progress note Formatting of t his note might be different from the original. Attempted PT eval [id number]. Pt adamantly declining any participation with therapy evaluations until he receives something "stronger" for pain. Dr. Nelson notified upon entering room, and states plan to place order for medication and nurse also notified. PT to return at a later time as pt agreeable to participate. No services rendered at this time. Kayla Atwood, PT, DPT 03/17/2023 [facility] 03-17-2023 Progress note Formatting of t his note might be different from the original. Order received. Initiated evaluation from [id number] for interview portion of evaluation. Pt's speech [...] agreeable for participation. ROSA Cosby, OTR/L 03/17/2023 [facility] 03-17-2023 Consult note Associated Order (s): [...] to cefadroxil however the patient did not picker and sorter load and unload the medication and had been off of [...] 100 mg, 100 mg, Oral, Q12H, Nestor Alnozo MD, 100 mg at 03/16/23 2351 Ipratropium-albuterol [...] other than and . Testing performed at [place], [place] [address] CBC Lab Results Component Value Date WBC [...] to Top Result Report CULTURE WOUND (Order #[id number]) on 03/11/23 View Touchotel Info CULTURE WOUND (Order #[id number]) on 03/11/23 CULTURE WOUND: Patient Communication Add Comments Not seen Collection Information Specimen ID: [id number] Swab LEG Collected: 03/11/2023 12:23 PM 200 Received: 03/11/2023 12:23 PM Resulting Agency: [address] [facility] [address] Wound culture 02/27 with MSSA Staphylococcus aureus [...] due to underlying liver disease -patient seeing development and planning engineer Dr Dahl -Positive testing for positive platelet antibodies IIB/IIIA, possible ITP -Possible thalassemia, electrophoresis was not performed though according to lab review -White count 2.2 -Hemoglobin 10 -Platelets of 01 -reticulocyte percentage 2.2, iron, ferritin, B12 and folate normal in past -patient seeing development and planning engineer Dr Dahl -Positive testing for positive platelet antibodies IIB/IIIA, possible ITPl Soluble transferrin elevated 27 Obesity -Patient with ongoing efforts to lose weight -BMI 31 Right lower extremity wound/feet& toe deformities -Patient saw podiatry Dr. Pelayo in [facility] and then to [facility] with Dr. Bryan; plan shave procedure [...] you for this consultation Nathan Hayden MD [facility] 03-17-2023 Consult note Associated Order (s): [...] to cefadroxil however the patient did not picker and sorter load and unload the medication and had been off of [...] BACK BY HARDY HUTCHINS RN AT [address] [facility] 02/26/2023 09:32 PM 2.9 (L) 3.6 - [...] other than and . Testing performed at [facility], [place], [place] [address] CBC Lab Results Component Value Date WBC [...] to Top Result Report CULTURE WOUND (Order #[id number]) on 03/11/23 View Touchotel Info CULTURE WOUND (Order #[id number]) on 03/11/23 CULTURE WOUND: Patient Communication Add Comments Not seen Collection Information Specimen ID: [id number] Swab LEG Collected: 03/11/2023 12:23 PM 200 Received: 03/11/2023 12:23 PM Resulting Agency: [facility] - [address] [place] [address] Wound culture 02/27 with MSSA Staphylococcus aureus [...] due to underlying liver disease -patient seeing development and planning engineer Dr Dahl -Positive testing for positive platelet antibodies IIB/IIIA, possible ITP -Possible thalassemia, electrophoresis was not performed though according to lab review -White count 2.2 -Hemoglobin 10 -Platelets of 01 -reticulocyte percentage 2.2, iron, ferritin, B12 and folate normal in past -patient seeing development and planning engineer Dr Dahl -Positive testing for positive platelet antibodies IIB/IIIA, possible ITPl Soluble transferrin elevated 27 Obesity -Patient with ongoing efforts to lose weight -BMI 31 Right lower extremity wound/feet& toe deformities -Patient saw podiatry Dr. Pelayo in [place] and then to [facility] with Dr. Bryan; plan shave procedure [...] Nathan Hayden MD documented in this encounter [facility] 03-17-2023 Plan of care note Problem: Skin [...] outcomes by discharge/transition of care. Outcome: Ongoing [facility] 03-17-2023 Nurse Note Pt resting in bed with eyes closed. Respirations even and non-labored. Assessment without changes. Pillow provided to elevate left leg for comfort as requested. Call light in reach. [facility] 03-17-2023 Nurse Note Pt unable to stand for daily weight and bed does not have scale to weigh patient. [facility] 03-16-2023 Nurse Note Pt resting in bed [...] painful to touch. Call light in reach. [facility] 03-16-2023 Emergency department Note Transport here to take pt to [place] and gave report to Nolvia coroner/medical examiner [facility] 03-16-2023 Emergency department Note Transport here to take pt to [place] and gave report to Nolvia coroner/medical examiner [facility] took patient to [facility] [address] [place] [facility] contacted for transfer. Patient will go to room 264. Call [phone] to be forwarded to [facility]. Continuation of Emergency Department Encounter I assumed [...] time there are no beds available at [facility]. I spoke to the patient about the risks and benefits of transfer. He voiced understanding and gave verbal consent. I spoke to the nursing crop supervisor who is making arrangements for a bed to [facility]. Dr. Nelson contacted and will care for the patient in the [facility]. Transfer paper filled out and placed on chart. I spoke with the nursing crop supervisor. As the patient has failed outpatient antibiotic therapy he will meet inpatient criteria. No follow-ups on file. New Prescriptions No medications on file Discontinued Medications No medications on file An after visit summary was printed and given to the patient with the above information. Portions of this chart were created using Curemark electronic dictation. Please excuse any typographical or [...] at this time documented in this encounter [facility] 03-16-2023 Emergency department Note [facility] took patient to [facility] [address] [facility] 03-16-2023 Emergency department Note [place] [facility] contacted for transfer. Patient will go to room 264. Call [phone] to be forwarded to [facility]. [facility] 03-16-2023 Physician Emergency department Note Continuation of Emergency Department Encounter I assumed the patient's care at the change of shift from Dr. Leoanrd and YUKI Schmitz. Please see their note [...] time there are no beds available at [facility]. I spoke to the patient about the risks and benefits of transfer. He voiced understanding and gave verbal consent. I spoke to the nursing crop supervisor who is making arrangements for a bed to [facility] in [facility]. Dr. Nelson contacted and will care for the patient in the [facility] in hospital. Transfer paper filled out and placed on chart. I spoke with the nursing crop supervisor. As the patient has failed outpatient antibiotic therapy he will meet inpatient criteria. No follow-ups on file. New Prescriptions No medications on file Discontinued Medications No medications on file An after visit summary was printed and given to the patient with the above information. Portions of this chart were created using Curemark electronic dictation. Please excuse any typographical or grammatical errors contained herein. Nestor Alonzo MD 03/16/232007 [facility] 03-16-2023 Emergency department Note Paged Dr Nelson per Dr Alonzo request [facility] 03-16-2023 Emergency department Note Received report from Aide MENDOZA [facility] 03-16-2023 Emergency department Note US at bedside [facility] 03-16-2023 Physician Emergency department Note Patient [...] trauma or fracture Shai Leonard MD 03/16/23 8221 [facility] Work Phone: 03-16-2023 Emergency department Note Pt has been brought back to room 5 at this time [facility] 02-26-2023 Emergency department Note Zach MARTE RN (kara) notified. [facility] 02-26-2023 Emergency department Note Zach MRATE RN (kara) notified. Bed assignment #208 [facility], report # [id number], RN notified. [facility] called back with room assignment. Patient will go to room 208. Call [phone] rodríguez for nuno dumont. [facility] contacted for transfer. Will call back with room assignment. Called dr rodríguez for nuno dumont. Left voicemail. Images from the original note were not included. Emergency Department Report [facility] EMERGENCY DEPARTMENT Service Date:.02/26/23 PCP: Ani Worley [...] metal pedal of a workshop bike in [place]. He has not seek care for the wound he states that he took paper towels from a [employer] restaurant and tape gum to his leg. [...] with overfill 565 mL (total volume) IVPB Nvjfkwx-Rolpfe-Fyrbg Pertussis (BOOSTRIX) syringe 0.5 mL Bacitracin ointment [...] reviewed patient is accepted for transfer to Health system. Patient is alert oriented stable at this [...] with above information. . . Nuno Dumont, SKYLER-PROCESS CAMERA OPERATOR 02/26/23 8503 Patients Daughter Ginny West [phone] notified of admission per patients request. Patient [...] Leonard MD 02/26/232132 documented in this encounter [facility] 02-26-2023 Emergency department Note Bed assignment #208 [facility], report # [id number], RN notified. [facility] 02-26-2023 Emergency department Note [facility] called back with room assignment. Patient will go to room 208. Call [phone] for report. [facility] 02-26-2023 Emergency department Note Called dr rodríguez for nuno dumont. [facility] 02-26-2023 Emergency department Note [facility] contacted for transfer. Will call back with room assignment. [facility] 02-26-2023 Emergency department Note Called dr rodríguez for nuno dumont. Left voicemail. [facility] 02-26-2023 Physician Emergency department Note Images from the original note were not included. Emergency Department Report [facility] EMERGENCY DEPARTMENT Service Date:.02/26/23 PCP: Ani Worley [...] metal pedal of a workshop bike in [place]. He has not seek care for the wound he states that he took paper towels from a [employer] restaurant and tape gum to his leg. [...] with overfill 565 mL (total volume) IVPB Xohdsbp-Tdntvs-Mrvqt Pertussis (BOOSTRIX) syringe 0.5 mL Bacitracin ointment [...] reviewed patient is accepted for transfer to Health system. Patient is alert oriented stable at this [...] information. . . Nuno FunezMARLENY alfaroN-RODRIGUE 02/26/23 9870 [facility] 02-26-2023 Emergency department Note Patients Daughter Ginny West [phone] notified of admission per patients request. [facility] 02-26-2023 Physician Emergency department Note Patient was [...] following Podiatry for Shai Leonard MD 02/26/23 8672 [facility] Work Phone: 02-15-2023 History of Present illness [...] right lower leg - Primary Relevant Orders DE DRESSING CHANGE DE APPLY OF UNNA BOOT Pressure ulcer of right foot, stage 3 Chronic venous insufficiency Relevant Orders DE DRESSING CHANGE DE APPLY OF UNNA BOOT Lymphedema Relevant Orders DE DRESSING CHANGE DE APPLY OF UNNA BOOT At this time, [...] continue with aquacel AG secured with tubi delicatessen clerk. Patient encouraged to elevate BLE often, to [...] and cast padding applied below right knee. [place] unna boot and coban applied to right leg from ankle to knee. To left leg: Double layer tubigrip size F applied. Patient tolerated well and circ check was birsk bilaterally. documented in this encounter [facility] 02-15-2023 Instructions Muna Savage RN - 02/15/2023 1:15 PM EDT Keep unna boot on right leg clean and dry. Keep the tubigrip sock on the left leg clean and dry, may remove to wash leg but put it back on. Call with any questions or concerns. documented in this encounter [facility] 02-10-2023 History of Present illness Narrative Date [...] him back in a couple of weeks. (DOC:[id number]) Review of Systems Constitutional: Negative for chills, [...] wear top dentures. documented in this encounter [facility] 02-08-2023 History of Present illness Narrative History [...] right lower leg - Primary Relevant Orders DE DRESSING CHANGE Chronic venous insufficiency Relevant Orders DE DRESSING CHANGE Lymphedema Relevant Orders DE DRESSING CHANGE Pressure ulcer of right foot, stage 3 Foot mass, right Relevant Orders DE DRESSING CHANGE At this time, we will apply triamcinolone cream to BLE, triple helix/medihoney mixture to RLE posterior wound, covering with aquacel extra and ABD, and then wrap patient in BLE unna boots. To right foot nodule/wound, we will apply aquacel AG, ABD, kerlix, and secure with tubi delicatessen clerk. Patient encouraged to elevate BLE often, to [...] Aquacel AG , ABD, Kerlix and tubi delicatessen clerk size F. documented in this encounter [facility] 02-08-2023 Instructions Jenise Canaels RN - 02/08/2023 12:45 PM EDT Follow up in one week, keep your unna boots clean and dry, continue to follow up with all your scheduled appointments. Call with any questions or concerns. documented in this encounter [facility] 01-26-2023 History of Present illness Narrative HPI [...] Patient states recent history of admission to [facility] for falls. Patient had CT scan in [...] did receive hepatitis C treatment on 08/23. [facility] and began to take. No current side effects at this time except for fatigue. Patient denies any nausea, vomiting, abdominal pain. No hematemesis or blood loss. No fevers or chills. Patient continues to get treated for right lower extremity wound and is seeing a industrial designer in [place] Dr. Pelayo with improvement over time reported. [...] Prior appendectomy. 5. Tavera catheter in place. [employer] Workstation ID: [id number] Narrative EXAMINATION: CT CHEST ABDOMEN PELVIS WITHOUT CONTRAST HISTORY: ORDERING SYSTEM PROVIDED HISTORY: Fall; Abdominal Pain; Sepsis of unknown origin, TECHNOLOGIST PROVIDED HISTORY: Illness/Other Reason for exam: Fall, abdominal pain, sepsis of unknown origin Encounter Type: Subsequent/Follow-up Additional signs and symptoms: ORDERING SYSTEM PROVIDED DIAGNOSIS CODES: I63.9 Cerebrovascular accident (CVA), unspecified mechanism ([facility]) N17.9 Acute renal failure, unspecified acute renal failure type ([facility]) A41.9 Sepsis, due to unspecified organism, unspecified whether acute organ dysfunction present ([facility]) L03.119 Cellulitis of lower extremity, [...] 10.7/ platelets 108, 117, 106 -patient seeing development and planning engineer Dr Dahl -Positive testing for positive platelet antibodies IIB/IIIA, possible ITP -Possible thalassemia, electrophoresis is pending Obesity -Patient with ongoing efforts to lose weight -BMI 30.4, 31.2, 31.6, 31.4, 29.9 Right lower extremity wound/feet& toe deformities -Patient sees podiatry Dr. Pelayo in [facility] -Placed c/s for podiatry pending and [...] to be performed today to rule out GIS APPLICATION DEVELOPER event; on follow-up, patient still has not [...] Dr. Nathan Hayden documented in this encounter [facility] 01-25-2023 History of Present illness Narrative History [...] right lower leg - Primary Relevant Orders DE APPLY OF UNNA BOOT DE DRESSING CHANGE Chronic venous insufficiency Relevant Orders DE APPLY OF UNNA BOOT DE DRESSING CHANGE Lymphedema Relevant Orders DE APPLY OF UNNA BOOT DE DRESSING CHANGE Foot mass, right Relevant Orders AMB REFERRAL TO PODIATRY DE APPLY OF UNNA BOOT DE DRESSING CHANGE At this time, we will apply triamcinolone cream to BLE, zinc barrier cream to LLE posterior tiffany wound, applying triple helix and medihoney to wound bed, covering with folded 4x4 and ABD--secured with RLE unna boot. To right arch, we will apply aquacel AG and ABD, securing with tubi delicatessen clerk. Referral will be made to DR. Bryan [...] Aquacel AG , ABD, Kerlix and tubi delicatessen clerk. Referral to Dr Bryan documented in this encounter [facility] 01-25-2023 Instructions Jenise Canales RN - 01/25/2023 2:15 PM EDT watermelon harvesting supervisor your antibiotic today, keep your unna boots clean and dry, follow up with DR Bryan when scheduled for foot wound. documented in this encounter [facility] 01-18-2023 History of Present illness Narrative History [...] right lower leg - Primary Relevant Orders DE DRESSING CHANGE DE APPLY OF UNNA BOOT Chronic venous insufficiency Relevant Orders DE DRESSING CHANGE DE APPLY OF UNNA BOOT Lymphedema At this [...] Patient tolerated well. documented in this encounter [facility] 01-18-2023 Instructions eJnise Canales RN - 01/18/2023 2:45 PM EDT Keep your unna boots clean and dry. Call the wound clinic with questions or concerns. Keep your lymphedema appointment. documented in this encounter [facility] 01-18-2023 Procedure note Associated Ord er(s): WOUND [...] with the proposed plan, giving informed consent. [place] Protocol required: Yes. [place] Protocol is required. Preprocedure verification is complete [...] treatment: Procedure was tolerated well Complications: None [facility] 01-18-2023 Procedure note Associated Ord er(s): WOUND [...] with the proposed plan, giving informed consent. [place] Protocol required: Yes. [place] Protocol is required. Preprocedure verification is complete [...] well Complications: None documented in this encounter [facility] 12-28-2022 History of Present illness Narrative History [...] right lower leg - Primary Relevant Orders DE APPLY OF UNNA BOOT DE DRESSING CHANGE CULTURE WOUND Chronic venous insufficiency Relevant Orders DE APPLY OF UNNA BOOT DE DRESSING CHANGE CULTURE WOUND Lymphedema Relevant Orders DE APPLY OF UNNA BOOT DE DRESSING CHANGE CULTURE WOUND Fungal dermatitis At [...] Cast padding and xeroform under the knees. [place] unna boots and coban from base of toes to below the knees. Capillary refill brisk. Cetacaine spray to right posterior leg wound prior to selective debridement by Nj Ayala CNP with #3 curette . See debridement flow sheet. Puraply AM 2x4 applied to right leg wound,steri stripped in place, covered with Adaptic touch steri stripped in place. Puraply AM lot [id number] Exp 03/12/2025 documented in this encounter [facility] 12-28-2022 Instructions Jenise Canales RN - 12/28/2022 2:15 PM EDT Keep your unna boots clean and dry., return to the wound clinic in one week. documented in this encounter [facility] 12-28-2022 Procedure note Associated Ord er(s): CELLULAR [...] Tolerated well, no immediate complications Complications: None [facility] 12-28-2022 Procedure note Associated Ord er(s): CELLULAR [...] complications Complications: None documented in this encounter [facility] 12-21-2022 History of Present illness Narrative History [...] right lower leg - Primary Relevant Orders DE DRESSING CHANGE DE APPLY OF UNNA BOOT Chronic venous insufficiency Relevant Orders DE DRESSING CHANGE DE APPLY OF UNNA BOOT Lymphedema Relevant Orders DE DRESSING CHANGE DE APPLY OF UNNA BOOT At this time, [...] Cast padding and xeroform under the knees. [place] unna boots and coban from base of toes to below the knees. Puraply AM lot [id number] Exp 02/27/2025 documented in this encounter [facility] 12-21-2022 Instructions Jenise Canales RN - 12/21/2022 1:15 PM EDT Keep your unna boots clean and dry, elevate your legs as tolerated throughout the day, call with concerns. documented in this encounter [facility] 12-21-2022 Procedure note Associated Ord er(s): CELLULAR [...] Tolerated well, no immediate complications Complications: None [facility] 12-21-2022 Procedure note Associated Ord er(s): CELLULAR [...] complications Complications: None documented in this encounter [facility] 12-14-2022 History of Present illness Narrative History [...] right lower leg - Primary Relevant Orders DE DRESSING CHANGE DE APPLY OF UNNA BOOT Chronic venous insufficiency Relevant Orders DE DRESSING CHANGE DE APPLY OF UNNA BOOT Lymphedema Relevant Orders DE DRESSING CHANGE DE APPLY OF UNNA BOOT We will apply [...] Patient tolerated well. documented in this encounter [facility] 12-14-2022 Instructions Jenise Canales RN - 12/14/2022 9:00 AM EDT Keep your unna boots clean and dry, elevate the legs as tolerated throughout the day, call with questions or concerns. documented in this encounter [facility] 12-08-2022 History of Present illness Narrative Review [...] Patient states recent history of admission to [facility] for falls. Patient had CT scan in [...] did receive hepatitis C treatment on 08/23. [facility] and began to take. No current side effects at this time except for fatigue. Patient denies any nausea, vomiting, abdominal pain. No hematemesis or blood loss. No fevers or chills. Patient continues to get treated for right lower extremity wound and is seeing a industrial designer in [place] Dr. Pelayo with improvement over time reported. [...] therapy this weekend as he missed the [employer] truck and so missed one dose of [...] Prior appendectomy. 5. Tavera catheter in place. [employer] Workstation ID: [id number] Narrative EXAMINATION: CT CHEST [...] hemoglobin 10.2,10.6/ platelets 108, 117 -patient seeing development and planning engineer -Positive testing for positive platelet antibodies IIB/IIIA, possible ITP -Possible thalassemia, electrophoresis is pending Obesity -Patient with ongoing efforts to lose weight -BMI 30.4, 31.2, 31.6, 31.4 Right lower extremity wound/feet& toe deformities -Patient sees podiatry Dr. Pelayo in [place] -Placed c/s for podiatry - seeing wound care and has pneumoboots in place Right hand weakness -No trauma noted, does have notable weak left is extensor, fingers and wrist area -Obtain head CT which was ordered stat however patient has deferred getting tests performed today and wishes to come back different day although I recommended it to be performed today to rule out GIS APPLICATION DEVELOPER event; on follow-up, patient still has not gotten testing done and this will be rescheduled -X-ray shows degenerative changes but this likely does not explain his findings or acuity of presentation -Depending on findings, may need referral to neurology versus orthopedics Patient to follow-up within 3-4 weeks, earlier with new issues [address] Nathan Hayden documented in this encounter [facility] 11-30-2022 History of Present illness Narrative The following treatment completed via [employer] APPLIANCE COUNSELOR triamcinolone 0.1% cream applied to lower legs, foam to ankles. Right leg wound applied zine to tiffany-wound, sorbact, aqucel extra and ABD. [place] unna boots applied to lower legs. Patient voices no concerns or questions at this time. documented in this encounter [facility] 11-30-2022 Instructions Jenise Canales RN - 11/30/2022 1:15 PM EDT Follow up in one week, keep your unna boots clean and dry. Call the wound clinic with questions or concerns. documented in this encounter [facility] 11-25-2022 History of Present illness Narrative Review [...] management. He has also been admitted to [facility] for falls and CT scan in April [...] Portions of this chart were created using [employer] electronic dictation. Please excuse any typographical or grammatical errors contained herein as a result. documented in this encounter [facility] 11-25-2022 Instructions Bridget Dahl MD - 11/25/2022 3:00 PM EDT Return Visit in 2 weeks with Labs. documented in this encounter [facility] 11-23-2022 History of Present illness Narrative History [...] right lower leg - Primary Relevant Orders DE DRESSING CHANGE Chronic venous insufficiency Relevant Orders DE DRESSING CHANGE Lymphedema Relevant Orders DE DRESSING CHANGE At this time, we will [...] to tiffany-wound, sorbact, aqucel extra and ABD. [place] unna boots applied to lower legs. Patient voices no concerns or questions at this time. documented in this encounter [facility] 11-23-2022 Instructions Deborah Bell RN - 11/23/2022 1:45 PM EDT Wound center to coordinate Lymphedema. documented in this encounter [facility] 11-16-2022 History of Present illness Narrative History [...] right lower leg - Primary Relevant Orders DE DRESSING CHANGE DE APPLY OF UNNA BOOT Chronic venous insufficiency Relevant Orders DE DRESSING CHANGE DE APPLY OF UNNA BOOT Lymphedema At this [...] Patient tolerated well. documented in this encounter [facility] 11-16-2022 Instructions Jenise Canales RN - 11/16/2022 8:00 AM EDT Follow up in one week, keep your unna boots clean and dry. Call with questions or concerns. documented in this encounter [facility] 11-03-2022 History of Present illness Narrative Review [...] Patient states recent history of admission to [facility] for falls. Patient had CT scan in [...] lower extremity wound and is seeing a industrial designer in [place] Pel[place]o with improvement over time reported. Patient [...] Prior appendectomy. 5. Tavera catheter in place. [employer] Workstation ID: [id number] Narrative EXAMINATION: CT CHEST ABDOMEN PELVIS WITHOUT CONTRAST HISTORY: ORDERING SYSTEM PROVIDED HISTORY: Fall; Abdominal Pain; Sepsis of unknown origin, TECHNOLOGIST PROVIDED HISTORY: Illness/Other Reason for exam: Fall, abdominal pain, sepsis of unknown origin Encounter Type: Subsequent/Follow-up Additional signs and symptoms: ORDERING SYSTEM PROVIDED DIAGNOSIS CODES: I63.9 Cerebrovascular accident (CVA), unspecified mechanism ([facility]) N17.9 Acute renal failure, unspecified acute renal failure type ([facility]) A41.9 Sepsis, due to unspecified organism, unspecified whether acute organ dysfunction present ([facility]) L03.119 Cellulitis of lower extremity, [...] -Patient sees podiatry Dr. Pelayo in [facility] -Placed c/s for podiatry -ongoing edema and would recommend to be mold maintenance technician although patient has difficulty getting them on and off and is having difficulty managing his right lower extremity wound. -Recommend wound care center evaluation as well as home nursing service to be placeds 3 times a week to assist with dressing changes as well as tubi mold maintenance technician Patient to follow-up within 2-3 weeks [address] Nathan Hayden documented in this encounter [facility] 11-03-2022 Miscellaneous Notes Addended by: RESHMA GOODRICH on: 11/03/2022 09:54 AM Modules accepted: Orders documented in this encounter [facility] 11-03-2022 Note Addended by: RESHMA CHANEL on: 11/03/2022 09:54 AM Modules accepted: Orders [facility] 10-21-2022 Nurse Note Patient's daughter, Jeny, just telephoned in; is 2 minutes from Hospital; instructed on where to picker and sorter load and unload patient. IV discontinued with angiocath intact; no [...] his eyes again. documented in this encounter [facility] 10-21-2022 Nurse Surgical operation note Patient's daughter, Jeny, just telephoned in; is 2 minutes from Hospital; instructed on where to picker and sorter load and unload patient. [facility] 10-21-2022 Nurse Surgical operation note IV discontinued with angiocath intact; no redness or edema noted a site; pressure drsg applied to site; patient tolerated procedure well and is getting dressed for discharge home. [facility] 10-21-2022 Nurse Surgical operation note Dr. Suarez here speaking with patient, provides post procedure diagnosis, treatment provided and treatment recommended. [facility] 10-21-2022 Nurse Surgical operation note Patient assisted to sit on side of cart, denies dizziness or lightheaded, call light with patient, side rail up x 1. Educated patient on post anesthesia safety precautions throughout next 24 hours; patient verbalizes understanding. [facility] 10-21-2022 Nurse Surgical operation note Discharge instructions, and AVS, being provided to patient, by Mingo Britton LPN, after this RN reviewed documents. [facility] 10-21-2022 Nurse Surgical operation note Patient's BP has improved, is alert, HOB elevated; patient taking nourishment of diet pepsi and peanut butter crackers; patient denies difficulty swallowing, pain or nausea. [facility] 10-21-2022 Nurse Surgical operation note Patient to recovery bay 4; patient opens eyes to name, denies pain or nausea, then quickly closes his eyes again. [facility] 10-21-2022 Note Formatting of this n ote might be different from the original. See anesthesia record for vitals and medications given. [facility] 10-21-2022 Miscellaneous Notes See anesthesia record for vitals and medications given. documented in this encounter [facility] 09-29-2022 History of Present illness Narrative Review [...] Patient states recent history of admission to [facility] for falls. Patient had CT scan in [...] lower extremity wound and is seeing a industrial designer in [place] with improvement over time reported. Patient [...] Prior appendectomy. 5. Tavera catheter in place. [employer] Workstation ID: [id number] Narrative EXAMINATION: CT CHEST [...] -Patient sees podiatry Dr. Pelayo in [facility] -Patient was transferred here to podiatry at our facility and consult was placed -Patient has ongoing wound, does his own dressing changes daily, patient denies current infection and defers evaluation today Patient to follow-up within 3-4 weeks [address] Nathan Hayden documented in this encounter [facility] 09-29-2022 Miscellaneous Notes Addended by: LEEANN DON on: 09/29/2022 11:38 AM Modules accepted: Orders documented in this encounter [facility] 09-29-2022 Note Addended by: LEEANN DON on: 09/29/2022 11:38 AM Modules accepted: Orders [facility] 08-26-2022 History of Present illness Narrative Nurse [...] recommendations pending results documented in this encounter [facility] 08-26-2022 Instructions Zakiya Horan LPN - 08/26/2022 [...] 3:00pm the day before your procedure, call [phone] documented in this encounter [facility] 08-25-2022 History of Present illness Narrative Review [...] Patient states recent history of admission to [facility] for falls. Patient had CT scan in [...] did receive hepatitis C treatment on 08/23. [facility] and began to take. No current side effects at this time except for fatigue. Patient denies any nausea, vomiting, abdominal pain. No hematemesis or blood loss. No fevers or chills. Patient continues to get treated for right lower extremity wound and is seeing a industrial designer in [place] with improvement over time reported. Patient [...] Prior appendectomy. 5. Tavera catheter in place. [employer] Workstation ID: [id number] Narrative EXAMINATION: CT CHEST ABDOMEN PELVIS WITHOUT CONTRAST HISTORY: ORDERING SYSTEM PROVIDED HISTORY: Fall; Abdominal Pain; Sepsis of unknown origin, TECHNOLOGIST PROVIDED HISTORY: Illness/Other Reason for exam: Fall, abdominal pain, sepsis of unknown origin Encounter Type: Subsequent/Follow-up Additional signs and symptoms: ORDERING SYSTEM PROVIDED DIAGNOSIS CODES: I63.9 Cerebrovascular accident (CVA), unspecified mechanism ([facility]) N17.9 Acute renal failure, unspecified acute renal failure type ([facility]) A41.9 Sepsis, due to unspecified organism, unspecified whether acute organ dysfunction present ([facility]) L03.119 Cellulitis of lower extremity, [...] wound -Patient sees podiatry Dr. Pelayo in [place] -No clear evidence of new infection -Patient has follow-up visit 08/26 -Ongoing wound care and elevation Patient to follow-up within 3-4 weeks [address] Nathan Hayden documented in this encounter [facility] 07-07-2022 History of Present illness Narrative Review [...] Patient states recent history of admission to [facility] for falls. Patient had CT scan in [...] Prior appendectomy. 5. Tavera catheter in place. [employer] Workstation ID: [id number] Narrative EXAMINATION: CT CHEST [...] Dr. Nathan Hayden documented in this encounter [facility] 06-07-2022 History of Present illness Narrative HPI Carmen Gilman male 1965 presents to the [facility] with Chief Complaint Patient presents with Referral Patient presents requesting a referral for a specialist to treat Hepatitis. He had an appointment with his PCP today and has not been given a follow up for hepatitis. States he is not receiving any treatment now. He denies SOB, abd distention. Desires to transfer care to [facility] providers. History No Known Allergies Current [...] KIEL Dawson 06/07/2022 documented in this encounter [facility] 05-12-2022 Emergency department Note Pt left AMA. Pt offered wheel chair but denied it. Pt walked out of ER with unsteady gait and in stable condition. [facility] 05-12-2022 Emergency department Note Pt left AMA. Pt offered wheel chair but denied it. Pt walked out of ER with unsteady gait and in stable condition. Pt left AMA and signed paper work for leaving AMA. documented in this encounter [facility] 05-12-2022 Emergency department Note Pt left AMA and signed paper work for leaving AMA. [facility] 04-21-2022 Hospital course Narrative Images from the original note were not included. [facility] [place] SUMMARY Carmen Gilman Admitted: 04/20/2022 Discharge [...] 04/21/22, 1:31 PM documented in this encounter [facility] 04-21-2022 Miscellaneous Notes AMA form [...] ST segments normal T Inversion: V2 normal DE interval normal QRS interval normal QT interval Clinical impression: non-specific ECG documented in this encounter [facility] 04-21-2022 Note Formatting of this [...] notified antibiotic prescription is at his pharmacy. [facility] 04-21-2022 Consult note Associated Order (s): IP CONSULT TO ENTEROSTOMAL THERAPY Wound care has been consulted for a wound to his leg. Podiatry has also been consulted for this same wound. We will defer to them for wound management. Lpapst RN woundcare [facility] 04-21-2022 Consult note Associated Order (s): IP CONSULT TO ENTEROSTOMAL THERAPY Wound care has been consulted for a wound to his leg. Podiatry has also been consulted for this same wound. We will defer to them for wound management. Lpapst RN woundcare documented in this encounter [facility] 04-21-2022 Note Formatting of this [...] Absence of pressure ulcer Outcome: Partially Met [facility] 04-21-2022 Note Formatting of this n ote might be different from the original. Patient alert and oriented x3, Patient BP 90/50 Dr. Boudreaux aware. [facility] 04-21-2022 Note Formatting of this [...] obtain it after I get pt's permission. [facility] 04-20-2022 History and physical note [facility] [place] AND PHYSICAL Patient Name: Carmen Gilman : 1965 MR #: [id number] Admit Date: 04/20/2022 Physicians: Ani Worley CNP [...] Unverified Quality Measures DVT Prophylaxis: heparin subcutaneous Tvaera Catheter: absent Select if patient admitted to [...] Arthritis Asthma COPD (chronic obstructive pulmonary disease) ([facility]) Diabetes (HCC) Hypertension Opioid dependence ([facility]) Past Surgical History Past Surgical History: Procedure Laterality Date APPENDECTOMY ARTHROPLASTY KNEE TOTAL ROBOTIC ASSISTED Right 01/08/2020 Procedure: Right Total Knee Replacement Robotic; Surgeon: Sofía Dukes MD; Location: [facility] [place]; Service: Ortho-Robotics FOOT SURGERY Left MANDIBLE FRACTURE [...] 04/20/22 9:28 PM Radiology 04/20/22 9:28 PM [facility] 04-20-2022 History and physical note [facility] [place] AND PHYSICAL Patient Name: Carmen Gilman : 1965 MR #: [id number] Admit Date: 04/20/2022 Physicians: Ani Worley CNP [...] Arthritis Asthma COPD (chronic obstructive pulmonary disease) ([facility]) Diabetes ([facility]) Hypertension Opioid dependence ([facility]) Past Surgical History Past Surgical [...] 04/20/22 9:28 PM documented in this encounter [facility] 04-20-2022 History of Present illness [...] and make adjustments as needed. Please use bTendo to call pharmacy or secure chat the [...] 04/20/22 122.6 kg (270 lb 4.5 oz) [place] body weight: 77.6 kg (171 lb 1.2 oz) Adjusted ideal body weight: 95.6 kg (210 lb 12.2 oz) Patient Tmax (last 24 hours): 98 F Micro: pending Pharmacist: Kanika Quintero RPh,PharmD Contact: [phone] documented in this encounter [facility] 04-20-2022 Note Formatting of this [...] any errors, but occasionally words are mis-transcribed.) [facility] Work Phone: 04-20-2022 Physician Emergency department Note Images from the original note were not included. [facility] ED WHIT Note: NAME: Carmen Gilman 56 y.o. CSN: [id number] PCP: Ani Worley CNP History: Chief Complaint: [...] All other components within normal limits Narrative: [facility] has implemented the [...] Procedure Abnormality Status --------- ------ CBC Auto Differential[[id number]] Abnormal Final result Manual Differential[[id number]] Abnormal Final result CBC and Diff Morphology[[id number]] Final result Please view results for these tests on the individual orders. TROPONIN OBTAIN VENOUS BLOOD GASES AND PERFORM TROPONIN DRUGS OF ABUSE SCREEN, URINE MORPHOLOGY XR Pelvis 1 View (Standard) Preliminary Result No acute osseous abnormality of the pelvis is identified. [employer] Workstation ID: [id number] Knee Right 2 Views (Standard) Preliminary Result 1. Bilateral subcutaneous edema. 2. No acute fracture or dislocation identified in either knee. 3. Total right knee arthroplasty in place. [employer] Workstation ID: [id number] Knee Left 2 Views (Standard) Preliminary Result 1. Bilateral subcutaneous edema. 2. No acute fracture or dislocation identified in either knee. 3. Total right knee arthroplasty in place. [employer] Workstation ID: [id number] XR Chest 1 View Preliminary Result No acute cardiopulmonary process. [employer] Workstation ID: [id number] MDM: ED Course as [...] Uyen Casiano CNP ED Advanced Practice Provider [facility] Emergency Department (Please note that portions of this note have been completed with a voice recognition software. Efforts were made to correct any errors, but occasionally words are mis-transcribed.) Uyen Casiano CNP 04/20/22 1729 [facility] Work Phone: 04-20-2022 Emergency department Note Images from the original note were not included. [facility] ED WHIT Note: NAME: Carmen Gilman 56 y.o. CSN: [id number] PCP: Ani Worley CNP History: Chief Complaint: [...] Arthritis Asthma COPD (chronic obstructive pulmonary disease) ([facility]) Diabetes (HCC) Hypertension Opioid dependence ([facility]) PMSx: Past Surgical History: Procedure [...] All other components within normal limits Narrative: [facility] has implemented the [...] Procedure Abnormality Status --------- ------ CBC Auto Differential[[id number]] Abnormal Final result Manual Differential[[id number]] Abnormal Final result CBC and Diff Morphology[[id number]] Final result Please view results for these tests on the individual orders. TROPONIN OBTAIN VENOUS BLOOD GASES AND PERFORM TROPONIN DRUGS OF ABUSE SCREEN, URINE MORPHOLOGY XR Pelvis 1 View (Standard) Preliminary Result No acute osseous abnormality of the pelvis is identified. [employer] Workstation ID: [id number] Knee Right 2 Views (Standard) Preliminary Result 1. Bilateral subcutaneous edema. 2. No acute fracture or dislocation identified in either knee. 3. Total right knee arthroplasty in place. [employer] Workstation ID: [id number] Knee Left 2 [...] Uyen Casiano CNP ED Advanced Practice Provider [facility] Emergency Department (Please note that portions of [...] are scabbed over. documented in this encounter [facility] 04-20-2022 Note Associated Order(s): EKG 12-lead EKG 12-lead Date/Time: 04/20/2022 3:15 PM Performed by: Carolina Solis MD Authorized by: Carolina Solis MD Interpreted by ED attending physician Comparison: not compared with previous ECG Rhythm: sinus rhythm BPM: 69 Conduction: conduction normal ST Segments: ST segments normal T Inversion: V2 normal DE interval normal QRS interval normal QT interval Clinical impression: non-specific ECG [facility] 04-20-2022 Emergency department Note RODRIGUE Qiu bedside. [facility] 04-20-2022 Emergency department Note Placed call to Dr. Solis to update about pt hypotension. [facility] 04-20-2022 Emergency department Triage note Pt arrived to ed with c/c of fall from standing last night. Pt has swollen legs that he states is chronic. Pt has wounds to bilateral legs that are scabbed over. [facility] 03-07-2022 Physician Emergency department Note Emergency Department Report [facility] EMERGENCY DEPARTMENT Service Date:.03/07/22 PCP: Ani Worley [...] . . Nuno Cantor MD 03/07/22 0338 [facility] 03-07-2022 Emergency department Note Emergency Department Report [facility] EM[facility]GENCY DEPARTMENT Service Date:.03/07/22 PCP: Ani Worley [...] the patient with above information. . . uNno Cantor MD 03/07/22 0338 documented in this encounter [facility] 11-15-2021 History of Present illness Narrative 11/15/21 [...] Transfer Skill: Sit To Stand, Rehab Eval Sargent (Sit-Stand Transfers) contact guard Physical Assist/Nonphysical Assist: Sit/Stand 1 person assist Weight-Bearing Restrictions: Sit/Stand full weight-bearing Assistive Device For Transfer: Sit/Stand 2 wheeled walker Gait Skills, PT Eval Level of Sargent: Gait contact guard Physical Assist/Nonphysical Assist: Gait [...] Transfer Skill: Sit To Stand, Rehab Eval Sargent (Sit-Stand Transfers) contact guard Physical Assist/Nonphysical Assist: [...] Date: 11/12/2021 Date of Evaluation: :28 PM [facility] LOS: 2 days Chief complaint: Hypotension [...] Supine to Sit, Rehab Eval Level of Sargent: Supine/Sit contact guard Physical Assist/Nonphysical Assist: Supine/Sit 1 person assist Transfer Skill: Sit To Stand, Rehab Eval Sargent (Sit-Stand Transfers) contact guard Physical Assist/Nonphysical Assist: Sit/Stand 1 person assist Weight-Bearing Restrictions: Sit/Stand full weight-bearing Assistive Device For Transfer: Sit/Stand 2 wheeled walker Gait Skills, PT Eval Level of Sargent: Gait contact guard Physical Assist/Nonphysical Assist: Gait [...] x2 and Bala x1 maintained from this FARM EQUIPMENT ENGINEER and WINN assisted pt with pericare. [...] Transfer Skill: Sit To Stand, Rehab Eval Sargent (Sit-Stand Transfers) minimum assist (75% patient effort) Physical Assist/Nonphysical Assist: Sit/Stand 2 person assist Weight-Bearing Restrictions: Sit/Stand full weight-bearing Assistive Device For Transfer: Sit/Stand 2 wheeled walker Gait Skills, PT Eval Level of Sargent: Gait minimum assist (75% patients effort) Physical [...] is a 56 y.o. male admitted to [facility] for: 1. MARLENE (acute kidney injury) 2. [...] (278 lb) 03/23/18 132.9 kg (293 lb) [place] body weight: 77.6 kg (171 lb 1.2 [...] Score: 0 Nutrition: 2-->probably inadequate EER: Calories: 0019-8561 kcal (25-30 kcal/kg IBW) Protein: 62-78 gm [...] AMRIK Daniels Registered Dietitian, Licensed Dietitian 11/13/21 INSIDE [employer] SALES met with patient to discuss discharge plans. INSIDE PHONE SALES explained that therapy was recommending the patient go to a facility for rehab. Patient states that he does not want to go to a facility. [employer] SALES explained that it is not safe for him to return home. He states that he feels like he does well with therapy and is not going to go to a facility. He states "I just need a walker". [employer] SALES provided patient with a walker from the DME supply. Paperwork completed. Patient agreeable to home health care. He is agreeable for home health and would like to use [facility]. SW team to make referral to [facility]. INS[employer]ONE SALES attempted to talk with patient about rehab one more time but patient stated "I am not going to go anywhere". INS[employer]ONE SALES to follow. INSIDE PHONE SALES Places HH referral to [facility] 11/13/21 [...] Supine to Sit, Rehab Eval Level of Sargent: Supine/Sit stand-by assist Physical Assist/Nonphysical Assist: Supine/Sit 1 person assist Transfer Skill: Sit To Stand, Rehab Eval Sargent (Sit-Stand Transfers) moderate assist (50% patient effort) Physical Assist/Nonphysical Assist: Sit/Stand 2 person assist Weight-Bearing Restrictions: Sit/Stand full weight-bearing Assistive Device For Transfer: Sit/Stand 2 wheeled walker Gait Skills, PT Eval Level of Sargent: Gait contact guard Physical Assist/Nonphysical Assist: Gait [...] 4. Pt will be independent with HEP. INS[employer]ONE SALES attempted to meet with patient to discuss rehab placement. Per nursing patient is very lethargic. INS[employer] PHONE SALES to re attempt later this date if [...] Muscle Testing (MMT) Dominant Hand right Hand Intern Product Marketing Manager, Right moderate Hand Intern Product Marketing Manager, Left moderate Manual Muscle Testing Results other (see comments) Additional Documentation (shoulder flexion 3-/5) Bed Mobility Skill: Supine to Sit, Rehab Eval Level of Sargent: Supine/Sit stand-by assist Physical Assist/Nonphysical Assist: Supine/Sit 1 person assist Transfer Skill: Sit to Stand, Rehab Eval Level of Sargent: Sit/Stand moderate assist (50% patients effort) Physical Assist/Nonphysical Assist: Sit/Stand 2 person assist Weight-Bearing Restrictions: Sit/Stand full weight-bearing Assistive Device for Transfer: Sit/Stand wheeled walker Lower Body Dressing Level of Sargent dependent (less than 25% patients effort) Physical Assist/Nonphysical Assist 1 person + 1 person to manage equipment Toileting Level of Sargent maximum assist (25% patients effort) Physical Assist/Nonphysical [...] during transfers Therapist Information License # [id number] 1. Pt will complete LB dressing mod assist 2. Pt will complete sponge bathing mod assist 3. Pt will complete toileting to BSC min assist 4. Pt will complete hygiene/grooming sitting EOB set up 5. Pt will complete UB dressing min assist 6. Pt will participate B UE ROM and distal strengthening techniques to improve safety with transfers [employer] SALES met with patient to discuss discharge plans. Patient states that he currently lives in a single story apartment alone. He states that he does not have advance directives. No listed emergency contacts. He asked [employer] SALES to add his sister, Aliyah Gilman. Patient states that he has a history of anxiety and takes medication for it. Patient states that he is not independent right now. He states that he has not been able to get up to attempt to walk since coming to the hospital, but he was walking very slowly yesterday. Patient expresses extreme weakness and asked this [employer] SALES to move his milk closer to him on his tray. Patient states that he is open to rehab, but would like to try to walk before making any decisions. INS[employer]ONE SALES to follow for therapy recommendations. Discharge Plan: [employer] SALES following for therapy recommendations. 11/13/21 0906 Information Source Information Source patient Information Source Name Jennifer Ceron Information Source Number [phone] Contact Information Waste Examiner/SW Added to Care Team Yes This Box Estimator is Primary Waste Examiner/SW Yes Social Work Contact Name Jennifer Ceron Adoption Agent's Living Environment Lives With alone Living Arrangements [...] Source admission list;physician documented in this encounter [facility] 11-15-2021 Hospital course Narrative Images from the [...] diet as tolerated. Discharge Follow-up: Ani Worley APRN-PROCESS CAMERA OPERATOR [address] [facility] [id number] Follow up in 1 week(s) Nathan Branch MD [address] [phone] Follow up in 1 week(s) Discharge Disposition: Patient will be discharged in stable condition. Discharge Time: Including assessment, planning, and medication reconciliation was greater than 35 min. Raymond Osman CNP completing Discharge Summary for attending physician. Please note Portions of this note utilized Cure[employer] dictation software, please excuse any typographical or [...] during this hospitalization documented in this encounter [facility] 11-15-2021 Note Formatting of this n ote [...] unit via wheelchair, with all belongings. T [facility] 11-15-2021 Miscellaneous Notes Problem: Patient Care Overview [...] Conf Outcome: Ongoing documented in this encounter [facility] 11-14-2021 Note Formatting of this n ote might be different from the original. Pt resting with eyes closed, no change in assessment, call light in reach. [facility] 11-14-2021 Note Formatting of this n ote might be different from the original. Pt up in recliner, lunch ordered . No change in previous assessment, call light in each. [facility] 11-14-2021 Note Formatting of this n ote [...] care will be discharge to home. T [facility] 11-14-2021 Note Formatting of this n ote might be different from the original. 0000- No changes from previous 1999 shift assessment unless charted otherwise. 0500- No changes from previous 0000 shift assessment unless charted otherwise. [facility] 11-13-2021 Note Formatting of this n ote might be different from the original. No changes in assessment since previous unless otherwise charted Patient remain up in chair, no complaints of pain, call light within reach Daughter updated via phone Waiting on echo and US results [facility] 11-13-2021 Note Formatting of this n ote might be different from the original. No changes in assessment since 0800 unless otherwise charted [facility] 11-13-2021 History and physical note History and Physical Examination 11/13/21 11:59 AM Chief Complaint: Dizziness History of Present Illness: Patient is a 56 y.o. male presents to [facility] for evaluation of dizziness. Patient with a [...] Please note Portions of this note utilized [employer] software, please excuse any typographical or grammatical errors [facility] Medicine Associated attestation - Son Rodriguez [...] Please note: Portions of this note utilized [employer] software, please excuse any typographical or grammatical errors. Which inadvertently, might change the meaning and understanding. [facility] 11-13-2021 History and physical note History and Physical Examination 11/13/21 11:59 AM Chief Complaint: Dizziness History of Present Illness: Patient is a 56 y.o. male presents to [facility] for evaluation of dizziness. Patient with a [...] Please note Portions of this note utilized Curemark dictation software, please excuse any typographical or grammatical errors [facility] Associated attestation - Son Rodriguez MD - [...] Please note: Portions of this note utilized C[employer] dictation software, please excuse any typographical or grammatical errors. Which inadvertently, might change the meaning and understanding. documented in this encounter [facility] 11-13-2021 Note Formatting of this n ote might be different from the original. notified Johnathan OLVERA that patient would like to speak with him Patient is unable to move legs appropriately, struggled feeding himself breakfast (Johnathan OLVERA notified) Call light within reach [facility] 11-13-2021 Note Formatting of this n ote might be different from the original. attempted to call daughter martin Gross voicemail box set up [facility] 11-13-2021 Nurse Surgical operation note 0000: [...] lisinopril pills inside). 0400: prior assessment unchanged. [facility] 11-13-2021 Nurse Note 0000: patient admitted [...] prior assessment unchanged. documented in this encounter [facility] 11-13-2021 Note Formatting of this n ote might be different from the original. Problem: Patient Care Overview Goal: Plan of Care Review Outcome: Ongoing Goal: Individualization & Mutuality Outcome: Ongoing Goal: Discharge Needs Assessment Outcome: Ongoing Goal: Interdisciplinary Rounds/Family Conf Outcome: Ongoing [facility] 11-12-2021 Emergency department Note Room 3785 assigned [facility] 11-12-2021 Emergency department Note Room [address] Cantor speaking with Dr. Rodriguez at this time Emergency Department Report [facility] EMERGENCY DEPARTMENT Service Date:.11/12/21 PCP: Ani Worley [...] medication recently. He was last admitted to [facility] in September. Patient denies any fever cough [...] Use Authorization (EUA) for the qualitative detection [id number] nucleic acid. PROTIME-INR Result Value Ref Range [...] YELLOW YELLOW APPEARANCE, URINE CLEAR CLEAR Specific [place], Urine 1.020 1.010 - 1.025 PH URINE [...] information. . . Nuno Cantor MD 11/12/21 3013 Bed: E006 Expected date: Expected time: Means of arrival: Comments: EMS documented in this encounter [facility] 03-24-[address] Cantor speaking with Dr. Rodriguez at this time [facility] 11-12-2021 Physician Emergency department Note Emergency Department Report [facility] EMERGENCY DEPARTMENT Service Date:.11/12/21 PCP: Ani Worley [...] medication recently. He was last admitted to [facility] in September. Patient denies any fever cough [...] Use Authorization (EUA) for the qualitative detection [id number] nucleic acid. PROTIME-INR Result Value Ref Range [...] YELLOW YELLOW APPEARANCE, URINE CLEAR CLEAR Specific [place], Urine 1.020 1.010 - 1.025 PH URINE [...] information. . . Nuno Cantor MD 11/12/21 6672 [facility] Work Phone: 11-12-2021 Emergency department Note Bed: E006 Expected date: Expected time: Means of arrival: Comments: EMS [facility] 10-07-2021 Emergency department Note Patient left AMA. [...] Baker notified Patient stated,'I'm a client at [facility]" . He admitted that he is [...] contacted at this time. Emergency Department Report [facility] EMERGENCY DEPARTMENT Service Date:.10/07/21 PCP: Ani Worley [...] at the patient does not work at [facility] [employer] [employer]. Instead, it is a community center [...] a lot due to his polysubstance abuse. [facility] paperwork was canceled as the patient [...] PA-C 10/07/21 1354 documented in this encounter [facility] 04-14-2021 History of Present illness Narrative Patient: [...] Assessment: Physical Exam documented in this encounter [facility] 04-04-2021 Emergency department Note Emergency Department Report [facility] EMERGENCY DEPARTMENT Service Date:.04/04/21 PCP: Ani Worley [...] Social Gatherings with Friends and Family: Attends [employer] Services: Active Member of Clubs or Organizations: [...] . Nuno Cantor MD 04/04/21 [address] [facility] documented in this encounter [facility] 03-30-2021 Emergency department Note Emergency Department Report [facility] EMERGENCY DEPARTMENT Service Date:.03/30/21 PCP: Palmer Givens [...] Social Gatherings with Friends and Family: Attends [employer] Services: Active Member of Clubs or Organizations: [...] MD 03/30/21 1257 documented in this encounter [facility] 02-02-2021 Emergency department Note Images from the original note were not included. [facility] EMERGENCY DEPARTMENT PCP - Ani Worley CNP N - [id number] Please excuse grammar and misspelling secondary to Dragon dictation use Chief Complaint Patient presents with Shoulder Pain Toe Pain HPI Chief complaint shoulder and toe pain This is a 55-year-old male who states that he fell several weeks ago injuring his shoulder and his toe. He has not really take anything other than [id number] medications. Patient states that his third toes [...] pneumothorax. Patient will be discharged with recommendation [id number] Aleve and Tylenol as needed for pain [...] Social Gatherings with Friends and Family: Attends [employer] Services: Active Member of Clubs or Organizations: [...] fell from chair. documented in this encounter [facility] Evaluation note Diagnosis Pain in joint of right shoulder- Primary Contusion of right great toe without damage to nail, initial encounter [facility] Fall, initial encounter- Primary Contusion of left shoulder, initial encounter Rib contusion, left, initial encounter Contusion of left knee, initial encounter Polysubstance abuse Other, mixed, or unspecified nondependent drug abuse, unspecified [facility] Diagnosis MARLENE (acute kidney injury) Acute [...] severe protein-calorie malnutrition [facility] Diagnosis Right foot pain- Primary Pain in limb [facility] Diagnosis Closed displaced fracture of middle phalanx of lesser toe of left foot, initial encounter- Primary Dislocation of interphalangeal joint of lesser toe of left foot, initial encounter [facility] Acquired varus deformity of left foot- Primary Hallux rigidus, acquired, left Fracture of second toe, left, open, with malunion, subsequent encounter [facility] Diagnosis Cellulitis of right lower extremity- Primary Cellulitis and abscess of leg, except foot Venous stasis ulcer of right calf, unspecified ulcer stage, unspecified whether varicose veins present [facility]* Diagnosis MARLENE (acute kidney injury) (HCC) Cellulitis of lower extremity, unspecified laterality Hypotension, unspecified hypotension type Dehydration Peripheral edema Edema Fall Unspecified fall documented in this encounter [facility] note* Diagnosis Ulcer of right foot, unspecified ulcer stage (HCC)- Primary Lymphedema of both lower extremities [facility] Work Phone: evaluation note* Diagnosis Shortness of breath- Primary [facility] Diagnosis Referral of patient- Primary Referral of patient without examination or treatment Chronic viral hepatitis B without delta agent and 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 Chronic hepatitis C without hepatic coma [facility]* Diagnosis Chronic hepatitis C without hepatic coma- Primary Hepatitis B core antibody positive Other and unspecified nonspecific immunological findings Healthcare maintenance Routine general medical examination at a [facility] care facility Obesity (BMI 30-39.9) Obesity, unspecified Pancytopenia Other pancytopenia Alcoholic cirrhosis, unspecified whether ascites present [facility]* Diagnosis Chronic hepatitis C without hepatic coma- Primary Hepatitis B core antibody positive Other and unspecified nonspecific immunological findings Healthcare maintenance Routine general medical examination at a [facility] care facility Alcoholic cirrhosis, unspecified whether ascites present Pancytopenia Other pancytopenia Obesity (BMI 30-39.9) Obesity, unspecified [facility]* Diagnosis Cirrhosis of liver without ascites, unspecified hepatic cirrhosis type- Primary Chronic hepatitis C without hepatic coma [facility]* Diagnosis Chronic hepatitis C without hepatic coma- Primary Hepatitis B core antibody positive Other and unspecified nonspecific immunological findings Pancytopenia Other pancytopenia Healthcare maintenance Routine general medical examination at a [facility] care facility Obesity (BMI 30-39.9) Obesity, unspecified Cirrhosis of liver without ascites, unspecified hepatic cirrhosis type Wound of right lower extremity, subsequent encounter [facility] Diagnosis Cirrhosis of liver without ascites, unspecified hepatic cirrhosis type Chronic hepatitis C without hepatic coma [facility] Diagnosis Wound of right lower extremity, subsequent encounter- Primary Chronic hepatitis C without hepatic coma Hepatitis B core antibody positive Other and unspecified nonspecific immunological findings Pancytopenia Other pancytopenia Obesity (BMI 30-39.9) Obesity, unspecified Healthcare maintenance Routine general medical examination at a [facility] care facility Cirrhosis of liver without ascites, unspecified hepatic cirrhosis type [facility] Diagnosis Venous stasis ulcer of right lower leg with edema of right lower leg- Primary Chronic venous insufficiency Unspecified venous (peripheral) insufficiency Lymphedema Other lymphedema [facility] Diagnosis Venous stasis ulcer of right lower leg with edema of right lower leg- Primary Chronic venous insufficiency Unspecified venous (peripheral) insufficiency Lymphedema Other lymphedema documented [facility]* Diagnosis Pancytopenia- Primary Other pancytopenia Thrombocytopenia Thrombocytopenia, unspecified Leukopenia, unspecified type Microcytic hypochromic anemia Iron deficiency anemia, unspecified Chronic hepatitis C without hepatic coma 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 Viral hepatitis B without mention of hepatic coma, chronic, with hepatitis delta Hepatosplenomegaly Other chronic nonalcoholic liver disease [facility]* Diagnosis Venous stasis ulcer of right lower leg with edema of right lower leg- Primary Chronic venous insufficiency Unspecified venous (peripheral) insufficiency documented [facility]* Diagnosis Chronic hepatitis C without hepatic coma- Primary Hepatitis B core antibody positive Other and unspecified nonspecific immunological findings Pancytopenia Other pancytopenia Cirrhosis of liver without ascites, unspecified hepatic cirrhosis type Healthcare maintenance Routine general medical examination at a [facility] care facility Obesity (BMI 30-39.9) Obesity, unspecified [facility]* Diagnosis Hand weakness Muscle weakness (generalized) documented [facility]* Diagnosis Venous stasis ulcer of right lower leg with edema of right lower leg- Primary Chronic venous insufficiency Unspecified venous (peripheral) insufficiency Lymphedema Other lymphedema documented [facility]* Diagnosis Venous stasis ulcer of right lower leg with edema of right lower leg- Primary Chronic venous insufficiency Unspecified venous (peripheral) insufficiency Lymphedema Other lymphedema documented [facility]* Diagnosis Venous stasis ulcer of right lower leg with edema of right lower leg- Primary Chronic venous insufficiency Unspecified venous (peripheral) insufficiency Lymphedema Other lymphedema Fungal dermatitis Dermatomycosis, unspecified documented [facility]* Diagnosis Venous stasis ulcer of right lower leg with edema of right lower leg- Primary Chronic venous insufficiency Unspecified venous (peripheral) insufficiency Lymphedema Other lymphedema documented [facility]* Diagnosis Chronic hepatitis C [...] encounter documented [facility]* Diagnosis Venous stasis ulcer of right lower leg with edema of right lower leg- Primary Chronic venous insufficiency Unspecified venous (peripheral) insufficiency Lymphedema Other lymphedema Foot mass, right documented [facility]* Diagnosis Venous stasis ulcer of right lower leg with edema of right lower leg- Primary Chronic venous insufficiency Unspecified venous (peripheral) insufficiency Lymphedema Other lymphedema Pressure ulcer of right foot, stage 3 Foot mass, right documented [facility]* Diagnosis Venous stasis ulcer of right lower leg with edema of right lower leg- Primary Pressure ulcer of right foot, stage 3 Chronic venous insufficiency Unspecified venous (peripheral) insufficiency Lymphedema Other lymphedema documented [facility]* Diagnosis Mass of right foot- Primary Bursitis of right foot Subluxation of foot joint, right, initial encounter documented [facility]* Diagnosis Cellulitis of left lower extremity- Primary Cellulitis and abscess of leg, except foot Suspected DVT (deep vein thrombosis) Sepsis without acute organ dysfunction, due to unspecified organism Pancytopenia Other pancytopenia Cellulitis and abscess of left lower extremity documented [facility]* Diagnosis Cellulitis of lower extremity, unspecified laterality- Primary Failure of outpatient treatment Ulcers of both lower legs, limited to breakdown of skin documented [facility]* Diagnosis Cellulitis of right [...] foot, except toes [facility] Diagnosis Nondependent cocaine abuse (HCC)- Primary [...] extremity, unspecified laterality documented in this encounter [facility] note* Diagnosis Wound of right lower extremity, subsequent encounter- Primary Chronic hepatitis C without hepatic coma Pancytopenia Other pancytopenia MSSA (methicillin susceptible Staphylococcus aureus) infection Methicillin susceptible Staphylococcus aureus in conditions classified elsewhere and of unspecified site Alcoholic cirrhosis, unspecified whether ascites present Left leg cellulitis Cellulitis and abscess of leg, except foot [facility]* Diagnosis Left leg cellulitis- [...] unspecified [facility] Diagnosis Pancytopenia- Primary Other pancytopenia Chronic [...] instability [facility] Diagnosis Pressure ulcer of right foot, stage 3- Primary Venous stasis ulcer of right lower leg with edema of right lower leg Lymphedema Other lymphedema Chronic venous insufficiency Unspecified venous (peripheral) insufficiency Venous stasis ulcer of left lower leg with edema of left lower leg [facility] Diagnosis Hematoma- Primary Contusion [...] exposed (HCC)- Primary documented in this encounter [facility] note* Diagnosis 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)- Primary documented in this encounter [facility] note* Diagnosis 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)- Primary [facility] Diagnosis Cellulitis, unspecified cellulitis site- Primary documented in this encounter [facility] note* Diagnosis Encounter for screening colonoscopy- Primary documented in this encounter [facility] note* Diagnosis Midfoot collapse of right lower extremity- Primary Pes planus of both feet Type 2 diabetes mellitus without complication, without long-term current use of insulin (HCC) Peripheral vascular disease (HCC) Unspecified peripheral vascular disease Arthritis of midfoot, unspecified laterality Chronic venous hypertension, unspecified laterality documented in this encounter [facility] note* Diagnosis Acute exacerbation of chronic [...] of right foot documented in this encounter [facility] note* Diagnosis Acute exacerbation of chronic [...] encounter (HCC)- Primary documented in this encounter [facility] note* Diagnosis Acute exacerbation of chronic [...] and subcutaneous tissue documented in this encounter [facility] note* Diagnosis Acute exacerbation of chronic [...] Muscle weakness (generalized) [facility] Diagnosis Acute exacerbation of chronic obstructive [...] of muscle (HCC) documented in this encounter [facility] note* Diagnosis Acute exacerbation of chronic [...] circulatory system disorder [facility] Diagnosis Acute exacerbation of chronic obstructive [...] muscle (HCC)- Primary documented in this encounter [facility] note* Diagnosis Acute exacerbation of chronic [...] peripheral vascular disease [facility] Diagnosis Acute exacerbation of chronic obstructive [...] Obesity (BMI 30-39.9) documented in this encounter [facility] note* Diagnosis Acute exacerbation of chronic [...] extremities [R60.0]- Primary [facility] Diagnosis Acute exacerbation of chronic obstructive [...] failure type (HCC) documented in this encounter [facility] note* Diagnosis Acute exacerbation of chronic [...] diastolic congestive heart failure (HCC) Atherosclerosis of [place] artery of lower extremity with ulceration, unspecified laterality, unspecified ulceration site (HCC)- Primary documented in this encounter [facility] note* Diagnosis Acute exacerbation of chronic [...] right knee replacement documented in this encounter [facility] note* Diagnosis Acute exacerbation of chronic [...] right knee replacement documented in this encounter [facility] note* Diagnosis Acute exacerbation of chronic [...] right knee replacement documented in this encounter [facility] note* Diagnosis Acute exacerbation of chronic [...] pulmonary heart diseases documented in this encounter [facility] note* Diagnosis Acute exacerbation of chronic [...] knee, right- Primary documented in this encounter [facility] note* Diagnosis Acute exacerbation of chronic [...] knee, right- Primary documented in this encounter [facility] note* Diagnosis Acute exacerbation of chronic [...] right knee replacement documented in this encounter [facility] note* Diagnosis Acute exacerbation of chronic [...] right knee replacement documented in this encounter [facility] Discharge instructions* Attachments The following attachments cannot be sent through Care Everywhere. * Shoulder Sprain ([place]) * Contusion ([place]) [facility]* Attachments The following attachments cannot be sent through Care Everywhere. * Contusion ([place]) [facility]* Attachments The following attachments cannot be sent through Care Everywhere. * Hepatitis C: General Info ([place]) * Hepatitis B: General Info ([place]) [facility]* Attachments The following attachments cannot be sent through Care Everywhere. * Foot Bones: Anatomy Sketch ([place]) [facility]* Attachments The following attachments cannot be sent through Care Everywhere. * Cellulitis ([place]) * Compression Stockings: General Info ([place]) [facility] Dis[facility]* Attachments The following attachments cannot be sent through Care Everywhere. * Lymphedema ([place]) documented in this [facility]* Attachments The following attachments cannot be sent through Care Everywhere. * SOB (Shortness of Breath) ([place]) documented [facility]* Attachments The following attachments cannot be sent through Care Everywhere. * Pain and Pain Control ([facility]) ([place]) documented [facility] this [facility] (n[facility]ative)* Consultation (Routine) - New Request Specialty Diagnoses / Procedures Referred By Kathy suh Referred To Contact Infectious Diseases Diagnoses Chronic hepatitis C without hepatic coma Chronic viral hepatitis B without delta agent and 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 Paul Osman, [employer] DESIGN LAYOUT-PROCESS CAMERA OPERATOR [address] [place] [address] Nathan Branch MD [address] [place] [address] Referral ID Status Reason Start Date Expiration Date V isits Requested Visits Authorized [id number] New Request 11/15/2021 12/10/2022 1 1 Electronically signed by Paul Osman [employer]RAFTER AUTOMOTIVE DESIGN LAYOUT-PROCESS CAMERA OPERATOR at 11/15/2021 11:32 AM EDT * (Routine) - New Request Specialty Diagnoses / Procedures Referred By Contac t Referred To Contact Procedures INPATIENT ADMISSION NOTIFICATION Morisetty, Satyasagar, MD [address] [facility] [place] [address] Referral ID Status Reason Start Date Expiration Date V isits Requested Visits Authorized [id number] New Request 11/12/2021 12/07/2022 1 1 * Radiology (Emergency) - New Request Specialty Diagnoses / Procedures Referred By Contac t Referred To Contact Procedures ECG Nuno Cantor MD [address] [place] [address] Referral ID Status Reason Start Date Expiration Date V isits Requested Visits Authorized [id number] New Request 11/12/2021 12/07/2022 1 1 [facility] for referral (narrative)* Consultation (Routine) - Pending Review Specialty Diagnoses / Procedures Referred By Contac t Referred To Contact Podiatry Diagnoses Right foot pain Sofía Devine MD [address] [place] [address] Felipe Molina, [facility] [address] [place] [address] Referral ID Status Reason Start Date Expiration Date V isits Requested Visits Authorized [id number] Pending Review 03/30/2021 04/24/2022 1 1 [facility] for referral (narrative)* Consultation (Routine) - New Request Specialty Diagnoses / Procedures Referred By Contac t Referred To Contact Wound Care Diagnoses Cellulitis of right lower extremity Venous stasis ulcer of right calf, unspecified ulcer stage, unspecified whether varicose veins present Nuno Cantor MD [address] [place] [address] [facility] [address] [place] [address] Referral ID Status Reason Start Date Expiration Date V isits Requested Visits Authorized [id number] New Request 03/07/2022 04/01/2023 1 1 [facility] for referral (narrative)* Consultation (Urgent) - New Request Specialty Diagnoses / Procedures Referred By Contac t Referred To Contact Infectious Diseases Diagnoses Referral of patient Chronic viral hepatitis B without delta agent and 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 Chronic hepatitis C without hepatic coma Pattie Roman, DRAFTER AUTOMOTIVE DESIGN LAYOUT-PROCESS CAMERA OPERATOR [address] [place] [address] Nathan Hayden MD [address] [place] [address] Referral ID Status Reason Start Date Expiration Date V isits Requested Visits Authorized [id number] New Request 06/07/2022 07/02/2023 1 1 Electronically signed by Pattie Roman [employer]RAFTER AUTOMOTIVE DESIGN LAYOUT-PROCESS CAMERA OPERATOR at 06/07/2022 6:43 PM EDT * Consultation (Urgent) - New Request Specialty Diagnoses / Procedures Referred By Contac t Referred To Contact Family Medicine Diagnoses Referral of patient Chronic viral hepatitis B without delta agent and 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 Chronic hepatitis C without hepatic coma Pattie Roman DRAFTER AUTOMOTIVE DESIGN LAYOUT-PROCESS CAMERA OPERATOR [address] [place] [address] Referral ID Status Reason Start Date Expiration Date V isits Requested Visits Authorized [id number] New Request 06/07/2022 07/02/2023 1 1 Electronically signed by Pattie Roman DRAFTER AUTOMOTIVE DESIGN LAYOUT-PROCESS CAMERA OPERATOR at 06/07/2022 6:43 PM EDT [facility] for referral (narrative)* Consultation (Routine) - New Request Specialty Diagnoses / Procedures Referred By Contac t Referred To Contact Podiatry Diagnoses Wound of right lower extremity, subsequent encounter Nathan Hayden MD [address] [place] [phone] Felipe Molina DPM [address] [place] [address] Referral ID Status Reason Start Date Expiration Date V isits Requested Visits Authorized [id number] New Request 09/29/2022 10/24/2023 1 1 * Consultation (Routine) - New Request Specialty Diagnoses / Procedures Referred By Contac t Referred To Contact Hematology Diagnoses Pancytopenia Nathan Hayden MD [address] [place] [phone] Referral ID Status Reason Start Date Expiration Date V isits Requested Visits Authorized [id number] New Request 09/29/2022 10/24/2023 1 1 [facility] for referral (narrative)* Consultation (Routine) - Closed Specialty Diagnoses / Procedures Referred By Contac t Referred To Contact Wound Care Diagnoses Wound of right lower extremity, subsequent encounter Nathan Hayden MD [address] [place] [phone] Jessenia [place], DRAFTER AUTOMOTIVE DESIGN LAYOUT-PROCESS CAMERA OPERATOR [address] [place] [address] Referral ID Status Reason Start Date Expiration Date Visits Re quested Visits Authorized [id number] Closed 11/03/2022 11/28/2023 1 1 [facility] for referral (narrative)* Consultation (Routine) - New Request Specialty Diagnoses / Procedures Referred By Contac t Referred To Contact Podiatry Diagnoses Foot mass, right Hay, Nj L, DRAFTER AUTOMOTIVE DESIGN LAYOUT-PROCESS CAMERA OPERATOR [address] [place] [phone] Kristi Bryan DPM [address] [place] [phone] Referral ID Status Reason Start Date Expiration Date V isits Requested Visits Authorized [id number] New Request 01/25/2023 02/19/2024 1 1 [facility] for referral (narrative)* (Routine) Specialty Diagnoses / Procedures Referred By Contac t Referred To Contact [facility] [address] [place] [address] Referral ID Status Reason Start Date Expiration Date Visits Re quested Visits Authorized [facility] for referral (narrative)* Consultation (Routine) - Authorized Specialty Diagnoses / Procedures Referred By Contac t Referred To Contact General Surgery Diagnoses Encounter for screening colonoscopy Ani Worley, PROCESS CAMERA OPERATOR [address] [place] [address] [facility], [address] [place] [address] Referral ID Status Reason Start Date Expiration Date Visits Requested Visits Authorized [id number] Authorized Specialty Services Required/Pat ient's Best Interest 12/22/2023 12/21/2024 1 1 [facility] Assessments Diagnosis Hallux valgus (acquired), [...] exacerbation of chronic obstructive pulmonary disease (COPD) ([facility])- Primary Obstructive chronic bronchitis with [...] left lower lobe due to infectious organism ([facility]) Influenza A Influenza with other respiratory manifestations COPD exacerbation ([facility]) Obstructive chronic bronchitis with exacerbation [...] exacerbation of chronic obstructive pulmonary disease (COPD) ([facility])- Primary Obstructive chronic bronchitis with exacerbation Acute respiratory failure, unspecified whether with hypoxia or hypercapnia ([facility]) COPD exacerbation ([facility]) Obstructive chronic bronchitis with exacerbation Cannabis abuse Nondependent cannabis abuse, unspecified Acute on chronic respiratory failure with hypoxia and hypercapnia ([facility]) Essential hypertension Unspecified essential hypertension Atrial fibrillation with rapid ventricular response ([facility]) Acute congestive heart failure ([facility]) Congestive heart failure, unspecified Morbid obesity with BMI of 40.0-44.9, adult ([facility]) Type 2 diabetes mellitus, without long-term current use of insulin ([facility]) Diagnosis Chronic obstructive pulmonary disease [...] asthma severity, unspecified whether persistent Morbid obesity ([facility]) Morbid obesity H/O CHF Paroxysmal [...] by a physician near his home in [facility], who recommended that he undergo PT [...] that he came all the way to [place] for a second opinion because he heard [...] Instructions Prior to Surgery BENJA: Printed on:07/31/18 9460 Medication Information Take last dose on Take [...] likely benefit from elective amputation of the [id number] digit. However, patient would prefer to try [...] states that he could go to a [facility]cc or stay in the hospital for a [...] left side. After he meets with the director of social work if they have a plan for what [...] MTP joint. He saw a practitioner in [place] and was told that he could have [...] were reviewed and updated as appropriate in [facility]. He is not a current tobacco [...] APPROVED FOR 2 WEEKS OR LESS FOR CORRECTION CARE. HE COULD GET RELEASED TO HOME [...] a bedpan in a wheelchair in a mcc combination postop. However the details of this [...] were reviewed and updated as appropriate in [facility]. He is not a current tobacco [...] Parrish, PT - 10/26/2019 10:45 AM EST [facility] Evaluation Today's Date 10/26/2019 [...] and mobility Do Parrish PT STATE LICENSE, [id number] documented in this encounter* Jhonny Medel MD - 01/04/2020 3:09 PM EDT Interventional Cardiology Clinic Note ID: Carmen Gilman is a 54 y.o. male : 1965 CC: Preop cardiac risk stratification HPI: I had the pleasure of evaluating Mr. Carmen Gilman at [facility] in [place] today. He is referred by Dr. Sofía [...] Medel MD, FACC Interventional Cardiology/Structural Heart Disease [facility] documented in this encounter* Palmer Givens PA [...] pre-op testing he will be seeing an [facility] solutions sales executive on November 05 for evaluation. He has [...] encouraged to go to an ER in [place] if his respiratory symptoms return/worsen. Pt also [...] AMA tomorrow morning. Pt also educated that [facility] is a tobacco free hospital and he [...] Pt lives alone in his residence in [place]. Pt was not utilizing any services in [...] but patient continuesto refuse. * Felipe Davis [facility] - 11/06/2019 6:29 AM EDT Pharmacy Note [...] Transfers Sit to Stand: Stand by assistance [employer] Consultant: Wheeled walker Skilled Intervention: Pt educated on [...] Cane Prior Level of Function Level of Sargent: Needs assistance with ADLs, Needs assistance with [...] on: 01/24/2020 9:00 AM by: SOFÍA DUKES [[id number]] documented in this encounter* Sb Andino MD [...] he may need to go to a mcc. He states that he lives on a [...] further surgery,risks of anesthesia, DVT, PE, CVA, ND, and . The patient was asked to [...] were reviewed and updated as appropriate in [facility]. He is not a current tobacco [...] needs his suboxone or he is leaving. [facility]. AMA paper signed per patient. rural health consultant in room to discontinue PICC line, IV,and Tavera catheter. * Mayur Hernandez MD - 07/09/2020 5:44 PM EST NEPHROLOGY [facility]GR[facility] Patient Name: Carmen Gilman Admit Date: MR #: [id number] : 1965 ASSESSMENT/PLAN: 1. Edema - probably [...] Q12H [facility] furosemide 40 mg Intravenous Q8H [facility] lispro insulin 0-15 Units Subcutaneous at bedtime insulin lispro 0-30 Units Subcutaneous TID AC ipratropium-albuteroL 3 mL Inhalation Q4H [facility] predniSONE 40 mg Oral Daily rivaroxaban 20 mg Oral Daily senna-docusate 1 tablet Oral BID sodium chloride (PF) 10 mL Intracatheter Q8H [facility] sodium chloride (PF) 5 mL Intravenous Q8H [facility] Continuous Infusions: sodium chloride 0.9 % Results [...] Murrell MD - 07/09/2020 4:29 PM EST [facility] Medicine Inpatient Follow-up 07/09/2020 Krys Murrell MD [facility] Patient: Carmen Gilman Date of : 1965 (54 y.o.) PCP: Mari Lee MD ASSESSMENT/PLAN: Carmen Gilman 54 y.o. male presented with complains of shortness of breath and altered mental status Principal Problem: Acute exacerbation of chronic obstructive pulmonary disease (COPD) ([facility]) Active Problems: Acute on chronic respiratory failure with hypoxia and hypercapnia (HCC) Essential hypertension Atrial fibrillation with rapid ventricular response (HCC) Acute congestive heart failure (HCC) Morbid obesity with BMI of 40.0-44.9, adult (HCC) Type 2 diabetes mellitus, without long-term current use of insulin ([facility]) PLAN: Acute metabolic encephalopathy resolved AMMONIA elevated on admission Check ammonia in a.m. Acute on chronic hypoxic hypercapnic respiratory failure Per cold mill inspector unclear etiology, ? related to acute pulmonary [...] Carmen Gilman Date of : 1965 Site: [facility] Referring Provider: Refer to consult order in [...] AMA. I tried to review records from [facility] ED in care everywhere and I could [...] requested records for review since records in [facility] were limited and patient is a poor historian. He did leave AMA which we discussed was a poor decision, he agreed. I made referral to cardiology and hematology based on the results I reviewed from [facility]. I ordered a CBC and CMP lab [...] He was seen in ED again at [facility] on 08/01/20 for suspect COVID, no COVID [...] the legs. He is taking buprenorphine from veterinary milk specialist and taking gabapentin daily. No complications [...] see how he is doing. LMOM at [phone] and asked to return my call. I also called [phone], no answer, no voice mail set up. documented in this encounter* Merry Barba LPN - 01/18/2020 8:31 AM EDT Error documented in this encounter* Lena Hill, PROCESS CAMERA OPERATOR - 09/21/2019 9:13 AM EST Carmen Moeller [...] file Gets together: Not on file Attends pentecostalism service: Not on file Active member of [...] - 01/11/2020 11:21 AM EDT Jahaira from [facility] called patient is c/o 05/31 for right [...] FoundDocuments on File Type Date Recorded Patient Equal Opportunity Assistant Expl anation Advance Directives and Livin g Will 04/03/2019 8:34 AM Documents on File Type Date Recorded Patient Equal Opportunity Assistant Expl anation Advance Directives and Livin g Will 09/21/2019 8:34 AM Documents on File Type Date Recorded Patient Equal Opportunity Assistant Expl anation Advance Directives and Livin g Will 01/03/2020 7:53 AM Documents on File Type Date Recorded Patient Equal Opportunity Assistant Expl anation Advance Directives and Livin g Will 01/03/2020 7:53 AM Documents on File Type Date Recorded Patient Equal Opportunity Assistant Expl anation Advance Directives and Living Will Power of General Studies Program Chair Latest Code Status on File Code Status Date Activated Date Inactivated Comments Full Code 11/06/2019 5:29 AM Documents on File Type Date Recorded Patient Equal Opportunity Assistant Expl anation Advance Directives and Livin g Will 01/08/2020 12:00 AM Latest Code Status on File Code Status Date Activated Date Inactivated Comments Full Code 01/08/2020 8:43 AM 01/08/2020 10:58 PM Documents on File Type Date Recorded Patient Equal Opportunity Assistant Expl anation Advance Directives and Livin g Will 01/08/2020 12:00 AM Latest Code Status on File Code Status Date Activated Date Inactivated Comments Full Code 01/08/2020 8:43 AM 01/08/2020 10:58 PM Documents on File Type Date Recorded Patient Equal Opportunity Assistant Expl anation Advance Directives and Livin g Will 01/30/2020 2:16 PM Documents on File Type Date Recorded Patient Equal Opportunity Assistant Expl anation Advance Directives and Livin g Will 04/22/2020 2:02 PM Documents on File Type Date Recorded Patient Equal Opportunity Assistant Expl anation Advance Directives and Livin g Will 06/11/2020 12:42 PM Documents on File Type Date Recorded Patient Equal Opportunity Assistant Expl anation Advance Directives and Livin g Will 07/08/2020 12:21 AM Latest Code Status on File Code Status Date Activated Date Inactivated Comments Full Code - Unverified 07/08/2020 1:21 AM 07/09/2020 1 1:01 PM Documents on File Type Date Recorded Patient Equal Opportunity Assistant Expl anation Advance Directives and Livin g Will 06/11/2020 12:42 PM Advance Directives and Livin g Will 07/28/2020 12:21 AM Full Code 01/08/2020 8:43 AM 01/08/2020 10:58 PM Documents on File Type Date Recorded Patient Equal Opportunity Assistant Expl anation Advance Directives and Livin g Will 06/11/2020 12:42 PM Advance Directives and Livin g Will 08/01/2020 8:49 AM Documents on File Type Date Recorded Patient Equal Opportunity Assistant Expl anation Advance Directives and Livin g Will 06/11/2020 12:42 PM Advance Directives and Livin g Will 11/01/2020 4:46 PM Documents on File Type Date Recorded Patient Equal Opportunity Assistant Expl anation Advance Directives and Livin g Will 09/21/2019 8:34 AM Documents on File Type Date Recorded Patient Equal Opportunity Assistant Expl anation Advance Directives and Livin g Will 06/11/2020 12:42 PM Advance Directives and Livin g Will 12/03/2020 12:47 PM Latest Code Status on File Code Status Date Activated Date Inactivated Comments Full Code 12/03/2020 1:59 PM 12/04/2020 5:57 PM Full Code - Unverified 07/08/2020 1:21 AM 07/09/2020 1 1:01 PM Documents on File Type Date Recorded Patient Equal Opportunity Assistant Expl anation Advance Directives and Livin g [...] In case of an emergency please call [phone] REFILLS: When in need for refills please call your care team or the office at [phone]. Please include medication name, pharmacy name, and [...] through Care Everywhere. * COPD: General Info (South Korean) documented in this encounter* Attachments The following attachments cannot be sent through Care Everywhere. * COPD: Asthma (South Korean) documented in this encounter* Discharge Instr - [...] your doctor if you can take an prnm-and-zpfnecp medicine. ? Plan to take your pain [...] Log into your personal health record on [email or web address] and enter T054 in the "Education" box to learn more about "Total Knee Replacement: What to Expect at Home." Current as of: February 14, 2019 Content Version: 12.3 8622-3705 [employer]. Care instructions adapted under license by your healthcare professional. If you have questions about a medical condition or this instruction, always ask your healthcare professional. [employer] disclaims any warranty or liability for your use of this information. documented in this encounter* Attachments The following attachments cannot be sent through Care Everywhere. * Asthma: Adult (South Korean) * COVID-19 SELF ISOLATION DISCHARGE INSTRUCTIONS * Coronavirus Disease (COVID-19): General Info (South Korean) documented in this encounter* Instructions* Christopher Ng [...] Right Without Contrast Sofía Dukes MD [address] [id number] Status Reason Specialty Diagnoses / Procedures Referred By Contact Referred To Contact New Request Diagnoses Essential hypertension SOB (shortness of breath) on exertion Leg edema Procedures ECHOCARDIOGRAM DE ECHO HEART XTHORACIC,COMPLETE W DOPPLER Palmer Givens PA [address] [place], [place] [phone] Status Reason Specialty Diagnoses / Procedures Referred By Contact Referred To Contact Authorized Specialty Services Required/[facility] Diagnoses S/P total knee arthroplasty, right Sofía Dukes MD [address] [id number] Status Reason Specialty Diagnoses / Procedures Referred By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 tablet at 07/08/20 0856 sodium chloride (PF) (NS) flush 10 mL 10 mL Intracatheter Q8H [facility] Carina Green CNP sodium chloride (PF) (NS) [...] reporting he wished to speak to the director of social work. Met with the patient bedside, he asks that this worker reach out to the apartment where he completed an application. VM left with apartment complex. Patient's phone charged for him. Discharge Planning Living Arrangements: Friends Support Systems: manager statistical programming/director of social work Assistance Needed: none Type of Residence: Homeless(living [...] doing breathing tx Rt knee edematous. Dr Hleton into see pt. Informed lungs diminished with [...] PACU without intraoperative complications. D 01/08/2020 08:42 [id number] 01/08/2020 09:04 MCB/MODL Brief Post Operative Note Patient Name: Carmen Gilman : 1965 (54 y.o.) Date of Service: 01/08/2020 CSN: [id number] Procedure(s): Right Total Knee Replacement Robotic Pre-Operative Diagnoses: * Primary osteoarthritis of right knee [M17.11] Post-Operative Diagnoses: * Same as Pre-Op Diagnosis * Primary osteoarthritis of right knee [M17.11] Surgeon(s) and Role: * Sofía Dukes MD - Primary Anesthesiologist: Paulino Helton MD AIR SAW OPERATOR: Carolina Lai CRNA Marine Engine Machinist: Marissa Gagnon RN Scrub Person: ST Laila [...] Implant Name Type Inv. Item Serial No. Cardiopulmonary Technician Lot No. LRB No. Used Action BASEPLATE SZ5 TIBIAL TRITANIUM TRIATHLON - [id number] BASEPLATE SZ5 TIBIAL TRITANIUM TRIATHLON JODI OR [id number] Right 1 Implanted INSERT SZ5-10 TIBIAL CR X3 TRIATHLON [id number] - [id number] INSERT SZ5-10 TIBIAL CR X3 TRIATHLON [id number] JODI OR [id number] Right 1 Implanted COMPONENT SZ5 FEM CR RT CEMENTLESS BEADED W/PA TRIATHLON - [id number] COMPONENT SZ5 FEM CR RT CEMENTLESS BEADED W/PA TRIATHLON JODI OR [id number] Right 1 Implanted PATELLA 35MM ASYMMETRIC METAL-BACKED TRITANIUM TRIATHLON - [id number] PATELLA 35MM ASYMMETRIC METAL-BACKED TRITANIUM TRIATHLON JODI [...] Outcome: Partially Met Problem: Restraint Use - Nonviolent/Rhf-Fvdo-Apobqnjrowm Behavior Goal: Absence of restraint indications 07/08/20201940 [...] with hypoxia and hypercapnia (HCC) Discussed with cold mill inspector at bedside. CT PE study is being ordered. Associated Problem(s): Acute congestive heart failure (HCC) I do not believe this was acute systolic or diastolic heart failure. Echo reviewed and noted. Associated Problem(s): Atrial fibrillation with rapid ventricular response (HCC) Now converted, will check EKG. Continue IV heparin at this time. [id number] is 2, consideration for long-term oral anticoagulation. Patient family contact numbers: Kassie Parks (dtr) Aliyah Gilman (sister) Calin Gilman (brother) Meri Gilman (mother) Focusing on patient safety and device maintenance during shift. POC initiated. [facility] Physician - Brief Progress Note PERMANENT 07/08/2020 01:50 [facility] CARMEN GILMAN Date of Service 07/08/2020 01:50 [...] with signage outside this patient's room. This rn progressive care unit performs hand hygiene and enters the patient [...] at that time. The patient presents to [place] emergency room yesterday with severe shortness of [...] HH OASIS Star t of Care Discipline -Assisted Problems Problem Start Date Status Goals Interventions Abnormal Findings Disciplines: Assisted, Physical Therapy, Occupational Therapy, Speech Therapy, Home Health Aide, Medical Social Work, Spiritual Care, Art Therapy, Massage Therapy, Registered Dietitian, Student - Medical Social Work 01/09/2020 Active 1 goal linked to scheduled/documented intervention 1 goal intervention scheduled/documented in this visit Home Medication Management Disciplines: Assisted 01/09/2020 Active 1 goal linked to scheduled/documented intervention 4 goal interventions scheduled/documented in this visit Learning/Teaching Needs - Joint Replacement Disciplines: Assisted 01/09/2020 Active 1 goal linked to scheduled/documented intervention 6 goal interventions scheduled/documented in this visit Pain Management Disciplines: Assisted 01/09/2020 Active 1 goal linked to scheduled/documented intervention 1 goal intervention scheduled/documented in this visit Risk of Falls Disciplines: Assisted, Physical Therapy, Occupational Therapy, Speech Therapy, Home Health Aide, Medical Social Work, Spiritual Care, Art Therapy, Massage Therapy, Registered Dietitian, Student - Medical Social Work 01/09/2020 Active 1 goal linked to scheduled/documented intervention 1 goal intervention scheduled/documented in this visit Skilled Assessment Disciplines: Assisted 01/09/2020 Active 1 goal linked to scheduled/documented [...] Problem:Skilled Assessment Goal:Rehospitalization joint replacement goal Scheduled SN/BUNCH MAKER HAND obtain vital signs Problem:Skilled Assessment Goal:Rehospitalization joint [...] scheduled/documented in this visit Abnormal Findings Disciplines: Assisted, Physical Therapy, Occupational Therapy, Speech Therapy, Home [...] in this visit Risk of Falls Disciplines: Assisted, Physical Therapy, Occupational Therapy, Speech Therapy, Home [...] risk goal Scheduled Visit Details Visit Type -APPLIANCE COUNSELOR HH Missed Vi sit Discipline -Assisted Visit Details Visit Type -SN HH Routine Vi sit Discipline -Assisted Interventions Intervention Associated Problem/Goal Status Variance Visit [...] Assessment Goal:Rehospitalizati on joint replacement goal Completed SN/BUNCH MAKER HAND obtain vital signs Problem:Skilled Assessment Goal:Rehospitalizati on joint replacement goal Completed Teaching - disease process Problem:Skilled Assessment Goal:Rehospitalizati on joint replacement goal Completed Visit Details Visit Type -SN HH PRN/On-Drea l Visit Discipline -Assisted Visit Details Visit Type -FARM EQUIPMENT ENGINEER Routine Visi t Discipline -Physical Therapy [...] Pain Management Goal:Pain management education goal Completed FARM EQUIPMENT ENGINEER educated pt. with pain management techniques such as icing, elevation, resting, stretching, and taking prescribed pain medication before or after activities to reduce pain and optimize daily physical functioning. Pt. able to exhibit a good understanding with the information provided by 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 Report abnormal assessment to physician Problem:Abnormal [...] Decreased Strength Goal:Strength PT Ortho goal Completed FARM EQUIPMENT ENGINEER provided skilled prompting on correcting proper [...] Home Exercise Program Goal:HEP education goal Completed FARM EQUIPMENT ENGINEER demonstrated, instructed, and provided pictorial cues of HEP exercises to improve independence and confidence. FARM EQUIPMENT ENGINEER also educated pt. with the importance of performing HEP on a daily basis to increase strength and tolerance with ADLs and to improve therapy outcome. PT transfer training Problem:PT19- Decreased Transfer Ability Goal:Transfer goal Completed FARM EQUIPMENT ENGINEER facilitated with verbal and tactile cues [...] Ambulation Ability Goal:Ambulation PT Ortho goal Completed FARM EQUIPMENT ENGINEER facilitated pt. with ambulation to improve confidence and independence with home mobility. Pt. able to ambulate in home for 60 ft. safely with FWW. Pt. stated increased right knee pain with ambulation. FARM EQUIPMENT ENGINEER provided verbal cues to improve antalgic gait. Pt. instructed to decrease step length to improve step pattern from a step to pattern to a reciprocal gait pattern. Assess/Instruct in balance and fall prevention techniques Problem:PT24- Decreased Balance/Increased Fall Risk Goal:Balance/Fall risk PT Ortho goal Completed FARM EQUIPMENT ENGINEER reviewed fall prevention strategies with pt. to avoid the risk of falls. Pt. complying by reporting no falls on this date. Instruct on fall prevention Problem:Risk of Falls Goal:Balance/Fall risk goal Completed FARM EQUIPMENT ENGINEER reviewed environmental fall risk factors and the proper use of walking aids to improve good stability. FARM EQUIPMENT ENGINEER also emphasized the importance of proper lighting/nightlight, proper footwear, make sure of a clutter free pathway, and to be aware of surrounding. Watch for trip hazards and uneven surfaces. Avoid walking when dizzy or weak. Patient demonstrated a good understanding. Visit Details Visit Type -APPLIANCE COUNSELOR Routine Discipline -Assisted Interventions Intervention Associated Problem/Goal Status Variance Visit [...] Assessment Goal:Rehospitalizati on joint replacement goal Completed SN/BUNCH MAKER HAND obtain vital signs Problem:Skilled Assessment Goal:Rehospitalizati on joint replacement goal Completed Teaching - disease process Problem:Skilled Assessment Goal:Rehospitalizati on joint replacement goal Completed Visit Details Visit Type -FARM EQUIPMENT ENGINEER Missed Visit Discipline -Physical Therapy Problems Problem Start Date Status Goals Interventions AP02- Decreased Knowledge of Pain Management Disciplines: Physical Therapy 01/09/2020 Active 1 goal linked to scheduled/documented intervention 1 goal intervention scheduled/documented in this visit Abnormal Findings Disciplines: Assisted, Physical Therapy, Occupational Therapy, Speech Therapy, Home [...] in this visit Risk of Falls Disciplines: Assisted, Physical Therapy, Occupational Therapy, Speech Therapy, Home [...] Pain Management Goal:Pain management education goal Completed FARM EQUIPMENT ENGINEER reviewed pain management techniques with pt. [...] Decreased ROM Goal:Range of motion goal Completed FARM EQUIPMENT ENGINEER instructed pt. to perform heel slides and standing anterior mini lunges on 6 inch step to increase knee flexion by breaking up scar tissue. Pt. AROM (0-80 degrees) PT muscle re-education Problem:PT14- Decreased Strength Goal:Strength PT Ortho goal Completed FARM EQUIPMENT ENGINEER provided skilled prompting on correcting proper [...] Home Exercise Program Goal:HEP education goal Completed FARM EQUIPMENT ENGINEER reviewed HEP with emphasis on full joint ROM to improve strength, increase joint articulation to reduce muscle tightness with transfers. FARM EQUIPMENT ENGINEER also educated pt. with the importance of performing HEP on a daily basis to increase strength and tolerance with ADLs and to improve therapy outcome. Pt. exhibited a good understanding and recall of HEP with pictorial cues. PT transfer training Problem:PT19- Decreased Transfer Ability Goal:Transfer goal Completed FARM EQUIPMENT ENGINEER facilitated with verbal and tactile cues [...] Ambulation Ability Goal:Ambulation PT Ortho goal Completed FARM EQUIPMENT ENGINEER provided verbal cue to concentrate with heel to toe stepping and over flexing R knee during swing phase to increase knee ROM and step height. Pt. able to ambulate inside home and outside home with FWW with good stability and maneuverability. Assess/Instruct in balance and fall prevention techniques Problem:PT24- Decreased Balance/Increased Fall Risk Goal:Balance/Fall risk PT Ortho goal Completed FARM EQUIPMENT ENGINEER reviewed fall prevention strategies with pt. to avoid the risk of falls. Pt. complying by reporting no falls on this date Instruct on fall prevention Problem:Risk of Falls Goal:Balance/Fall risk goal Completed FARM EQUIPMENT ENGINEER assisted with verbal cues with 30 [...] Assessment Goal:Rehospitalizati on joint replacement goal Completed SN/BUNCH MAKER HAND obtain vital signs Problem:Skilled Assessment Goal:Rehospitalizati on [...] scheduled/documented in this visit Abnormal Findings Disciplines: Assisted, Physical Therapy, Occupational Therapy, Speech Therapy, Home [...] in this visit Risk of Falls Disciplines: Assisted, Physical Therapy, Occupational Therapy, Speech Therapy, Home [...] scheduled/documented in this visit Abnormal Findings Disciplines: Assisted, Physical Therapy, Occupational Therapy, Speech Therapy, Home [...] in this visit Risk of Falls Disciplines: Assisted, Physical Therapy, Occupational Therapy, Speech Therapy, Home [...] Pain Management Goal:Pain management education goal Completed FARM EQUIPMENT ENGINEER educated pt. with pain management techniques to reduce or manage pain. FARM EQUIPMENT ENGINEER provided verbal and tactile cues for stretching right knee. FARM EQUIPMENT ENGINEER emphasized the importance of ice, elevation, [...] Home Exercise Program Goal:HEP education goal Completed FARM EQUIPMENT ENGINEER educated pt. with the importance of performing HEP on a daily basis to increase strength and tolerance with ADLs and to improve therapy outcome. Pt. exhibited a good understanding of HEP exercises. PT transfer training Problem:PT19- Decreased Transfer Ability Goal:Transfer goal Completed FARM EQUIPMENT ENGINEER instructed pt. to perform STSs from different seated surface levels to promote confidence, strength, and independence with home mobility. Pt. demonstrates safe transfer abilities with good stability using UE support. Assess/Instruct in safe gait techniques in home. Problem:PT20- Decreased Ambulation Ability Goal:Ambulation PT Ortho goal Completed FARM EQUIPMENT ENGINEER assisted pt. with ambulation by facilitating with verbal cues to step closer to rollator to correct posture, concentrate with increasing R knee flexion and heel strike with R foot during swing phase to improve stability. Pt. ambulated in home 60 ft. with FWW with good stability. FARM EQUIPMENT ENGINEER provided skilled prompting with sequencing with cane and step pattern. Pt. able to perform with good stability and sequencing. Assess/Instruct in balance and fall prevention techniques Problem:PT24- Decreased Balance/Increased Fall Risk Goal:Balance/Fall risk PT Ortho goal Completed FARM EQUIPMENT ENGINEER assisted with improving standing stability with verbal and tactile cues to widen AVA and to correct posture to get center of mass over their AVA. Pt. able to reach across midline without UE support with wide base but demonstrated instability with narrow stance. Instruct on fall prevention Problem:Risk of Falls Goal:Balance/Fall risk goal Completed FARM EQUIPMENT ENGINEER educated pt. with fall prevention and balancing techniques to eliminate fall risk, lead pt. to safe transfers, and improve stability outside of home and in the community. Visit Details Visit Type -SN HH Non-OASIS/ Discipline DC Discipline -Assisted Problems Problem Start Date Status Goals Interventions Abnormal Findings Disciplines: Assisted, Physical Therapy, Occupational Therapy, Speech Therapy, Home Health Aide, Medical Social Work, Spiritual Care, Art Therapy, Massage Therapy, Registered Dietitian, Student - Medical Social Work 01/09/2020 Resolved on 01/25/2020 1 goal linked to scheduled/documente d intervention 1 goal intervention scheduled/documented in this visit Home Medication Management Disciplines: Assisted 01/09/2020 Resolved on 01/25/2020 1 goal linked to scheduled/documente d intervention 4 goal interventions scheduled/documented in this visit Learning/Teaching Needs - Joint Replacement Disciplines: Assisted 01/09/2020 Resolved on 01/25/2020 1 goal linked to scheduled/documente d intervention 6 goal interventions scheduled/documented in this visit Pain Management Disciplines: Assisted 01/09/2020 Resolved on 01/25/2020 1 goal linked to scheduled/documente d intervention 1 goal intervention scheduled/documented in this visit Risk of Falls Disciplines: Assisted, Physical Therapy, Occupational Therapy, Speech Therapy, Home Health Aide, Medical Social Work, Spiritual Care, Art Therapy, Massage Therapy, Registered Dietitian, Student - Medical Social Work 01/09/2020 Resolved on 01/25/2020 1 goal linked to scheduled/documente d intervention 1 goal intervention scheduled/documented in this visit Skilled Assessment Disciplines: Assisted 01/09/2020 Resolved on 01/25/2020 1 goal linked [...] ER. Narratives Lying on air matress in [facility] room. Assessment done. alert and oriented. c/o pain in Rt knee rated at a 5/10. is taking pain medication. Is obese. is wanting a cane. this RN contacted Merry and she is going to send a script to [facility]. Dressing to Rt knee saturated from [...] 1 dose 174 (Given - Provid er: Cralita Domingo RN) Scheduled Medication Order 11/13/2021 11/14/2021 11/15/2021 albumin human 25 % injection 50 g (COMPLETED) 50 g, Intravenous, Administer over 60 Minutes, EVERY 6 HOURS, 3 doses, First dose on Tue11/13/21 at 0815, Last dose on Tue11/13/21 at 1800, At [facility], in emergencies, administer as rapidly as necessary [...] 1601 (Not Given - Provider: Indira Portillo, STOCKBROKING DEALER - Reason: Other - Comment: Due 7a [...] RN) 0500 (New Bag - Provider: Damion Hernnadez RN)0900 (Stopped - Provider: Ema Sánchez, KELLY) [...] dose 1703 (New Bag - Provider: Ema Liam RN) sodium chloride 0.9% (NS) bolus 2,328 mL (COMPLETED) 2,328 mL (30 mL/kg 77.6 kg [place] weight), Intravenous, at 1,154.4 mL/hr, Once, On [...] Bryson Ibarra RN - Comment: Given by LICENSED PLUMBER during wound care) ceFEPIme (MAXIPIME) 2 g [...] Until Discontinued 08 (Given - Provider: Tania aKhn RN)2043 (Given - Provider: Heaven Shannon RN) [...] Discontinued 0837 (Given - Provider: Marcelina Orta, STOCKBROKING DEALER)193 (Given - Provider: Dee Bowen, STOCKBROKING DEALER) 0717 (Given - Provider: Deja Martin, STOCKBROKING DEALER)2012 (Not Given - Provider: Carlita Colvin RCP [...] Myriam Martínez LPN) 0838 (Given - Provider: Cadnie Givens LPN) 0939 (Given - Provider: Cate [...] product is in a glass vial. In [employer] drug library, no longer in fluid library. [...] 0011 1647 (Given - Provider: Lizzy Mc, STOCKBROKING DEALER) 0909 (Given - Provider: Heaven Luna, STOCKBROKING DEALER)2103 (Given - Provider: Neha Denney, JORGE) 0658 [...] Violeta Dillon RN)1138 (Given - Provider: Sally Plietez, KELLY)2004 (Given - Provider: Destiny Washburn LPN) [...] Patient/family refused) 0900 (Not Given - Provider: Rdaha Buckner RN - Reason: Patient/family refused) furosemide [...] Deborah Castellano RN)1658 (Given - Provider: Deborah Csatellano RN) 0000 (Not Given - Provider: Jonathan [...] 0604 1302 (Given - Provider: Elif Copeland, STOCKBROKING DEALER) ondansetron (ZOFRAN) injection 4 mg(Linked Group 3) [...] 6 hours PRN, nausea, vomiting, Starting on [place] 05/12/25 at 0604, [] Use oral route first, if tolerated. [] Use as first line antiemetic. Care Teams (unrecognized sec tion and content) Revenue Enforcement Collection Agent Relationship Specialty Start Date End Date Ani Worley APRN-PROCESS CAMERA OPERATOR [address] [place] [address] PCP - General Certified Nurse Practitioner 03/30/21 Revenue Enforcement Collection Agent Relationship Specialty Start Date End Date Ani Worley APRN-PROCESS CAMERA OPERATOR [address] [place] [address] PCP - General Certified Nurse Practitioner 03/30/21 Revenue Enforcement Collection Agent Relationship Specialty Start Date End Date Meir Ani [facility] [address] [place] [address] PCP - General Certified Nurse Practitioner 03/30/21 Revenue Enforcement Collection Agent Relationship Specialty Start Date End Date Ani Worley APRNPROCESS CAMERA OPERATOR [address] [place] [address] PCP - General Certified Nurse Practitioner 03/30/21 Revenue Enforcement Collection Agent Relationship Specialty Start Date End Date Meir Ani [facility] [address] [place] [address] PCP - General Certified Nurse Practitioner 03/30/21 Revenue Enforcement Collection Agent Relationship Specialty Start Date End Date [facility] [address] [place] [address] PCP - General Certified Nurse Practitioner 03/30/21 Revenue Enforcement Collection Agent Relationship Specialty Start Date End Date Ani Worley PROCESS CAMERA OPERATOR [address] [address] PCP - General Family Medicine 06/03/21 Ani Worley PROCESS CAMERA OPERATOR [address] [facility] [address] [place] [address] Family Medicine 06/03/21 Prashanth Hercules MD [facility] Trang Castillo [address] [place] [id number] Consulting Physician Addiction Medicine 10/02/21 Revenue Enforcement Collection Agent Relationship Specialty Start Date End Date Ani Worley APRNPROCESS CAMERA OPERATOR [address] [place] [address] PCP - General Certified Nurse Practitioner 03/30/21 Revenue Enforcement Collection Agent Relationship Specialty Start Date End Date Meir Ani DRAFTER AUTOMOTIVE DESIGN LAYOUT-PROCESS CAMERA OPERATOR [address] [facility] [place] [address] PCP - General Certified Nurse Practitioner 03/30/21 Revenue Enforcement Collection Agent Relationship Specialty Start Date End Date Meir Ani, DRAFTER AUTOMOTIVE DESIGN LAYOUT-PROCESS CAMERA OPERATOR [address] [place] [address] PCP - General Certified Nurse Practitioner 03/30/21 Revenue Enforcement Collection Agent Relationship Specialty Start Date End Date ThomAni donis DRAFTER AUTOMOTIVE DESIGN LAYOUT-PROCESS CAMERA OPERATOR 175 [place] [address] PCP - General Certified Nurse Practitioner 03/30/21 Revenue Enforcement Collection Agent Relationship Specialty Start Date End Date Meir Ani DRAFTER AUTOMOTIVE DESIGN LAYOUT-PROCESS CAMERA OPERATOR 175 [place] [address] PCP - General Certified Nurse Practitioner 03/30/21 Revenue Enforcement Collection Agent Relationship Specialty Start Date End Date ThomMalik doniski DRAFTER AUTOMOTIVE DESIGN LAYOUT-PROCESS CAMERA OPERATOR 175 [place] [address] PCP - General Certified Nurse Practitioner 03/30/21 Revenue Enforcement Collection Agent Relationship Specialty Start Date End Date Meir Ani DRAFTER AUTOMOTIVE DESIGN LAYOUT-PROCESS CAMERA OPERATOR 175 [facility] [place] [address] PCP - General Certified Nurse Practitioner 03/30/21 Revenue Enforcement Collection Agent Relationship Specialty Start Date End Date Ani Worley DRAFTER AUTOMOTIVE DESIGN LAYOUT-PROCESS CAMERA OPERATOR 175 [place] [address] PCP - General Certified Nurse Practitioner 03/30/21 Revenue Enforcement Collection Agent Relationship Specialty Start Date End Date Ani Worley DRAFTER AUTOMOTIVE DESIGN LAYOUT-PROCESS CAMERA OPERATOR 175 [place] [address] PCP - General Certified Nurse Practitioner 03/30/21 Revenue Enforcement Collection Agent Relationship Specialty Start Date End Date Mier Ani DRAFTER AUTOMOTIVE DESIGN LAYOUT-PROCESS CAMERA OPERATOR 175 [place] [address] PCP - General Certified Nurse Practitioner 03/30/21 Revenue Enforcement Collection Agent Relationship Specialty Start Date End Date Ani Worley DRAFTER AUTOMOTIVE DESIGN LAYOUT-PROCESS CAMERA OPERATOR 175 [place] [address] PCP - General Certified Nurse Practitioner 03/30/21 Revenue Enforcement Collection Agent Relationship Specialty Start Date End Date Meir Ain DRAFTER AUTOMOTIVE DESIGN LAYOUT-PROCESS CAMERA OPERATOR 175 [place] [address] PCP - General Certified Nurse Practitioner 03/30/21 Revenue Enforcement Collection Agent Relationship Specialty Start Date End Date Ani Worley DRAFTER AUTOMOTIVE DESIGN LAYOUT-PROCESS CAMERA OPERATOR 175 [place] [address] PCP - General Certified Nurse Practitioner 03/30/21 Revenue Enforcement Collection Agent Relationship Specialty Start Date End Date Ani Worley DRAFTER AUTOMOTIVE DESIGN LAYOUT-PROCESS CAMERA OPERATOR 175 [place] [address] PCP - General Certified Nurse Practitioner 03/30/21 Revenue Enforcement Collection Agent Relationship Specialty Start Date End Date Ani Worley DRAFTER AUTOMOTIVE DESIGN LAYOUT-PROCESS CAMERA OPERATOR 175 [place] [address] PCP - General Certified Nurse Practitioner 03/30/21 Revenue Enforcement Collection Agent Relationship Specialty Start Date End Date Ani Worley DRAFTER AUTOMOTIVE DESIGN LAYOUT-PROCESS CAMERA OPERATOR 175 [place] [address] PCP - General Certified Nurse Practitioner 03/30/21 Revenue Enforcement Collection Agent Relationship Specialty Start Date End Date Ani Worley DRAFTER AUTOMOTIVE DESIGN LAYOUT-PROCESS CAMERA OPERATOR 175 [place] [address] PCP - General Certified Nurse Practitioner 03/30/21 Revenue Enforcement Collection Agent Relationship Specialty Start Date End Date Ani Worley APRNRODRIGUE 175 [place] [address] PCP - General Certified Nurse Practitioner 03/30/21 Revenue Enforcement Collection Agent Relationship Specialty Start Date End Date Ani Worley APRNPROCESS CAMERA OPERATOR [address] [place] [address] PCP - General Certified Nurse Practitioner 03/30/21 Revenue Enforcement Collection Agent Relationship Specialty Start Date End Date Ani Worley APRN-RODRIGUE [address] [place] [address] PCP - General Certified Nurse Practitioner 03/30/21 Revenue Enforcement Collection Agent Relationship Specialty Start Date End Date Ani Worley APRNRODRIGUE 175 [facility] [place] [address] PCP - General Certified Nurse Practitioner 03/30/21 Revenue Enforcement Collection Agent Relationship Specialty Start Date End Date Ani Worley CNP [address] [facility] [address] [place] [address] PCP - General Family Medicine 06/03/21 Ani Worley CNP [address] [facility] [address] [place] [address] Family Medicine 06/03/21 Prashanth Hercules MD [facility] Trang Castillo [address] [place] [address] Consulting Physician Addiction Medicine 10/02/21 Revenue Enforcement Collection Agent Relationship Specialty Start Date End Date Ani Worley APRN-PROCESS CAMERA OPERATOR 175 [facility] [place] [address] PCP - General Certified Nurse Practitioner 03/30/21 Revenue Enforcement Collection Agent Relationship Specialty Start Date End Date Meir AniMARLENY figueroaN-[facility] 175 [facility] [place] [address] PCP - General Certified Nurse Practitioner 03/30/21 Revenue Enforcement Collection Agent Relationship Specialty Start Date End Date Meir Ani DRAFTER AUTOMOTIVE DESIGN LAYOUT-PROCESS CAMERA OPERATOR 175 [facility] [place] [address] PCP - General Certified Nurse Practitioner 03/30/21 Revenue Enforcement Collection Agent Relationship Specialty Start Date End Date Meir SKYLER Isabel-PROCESS CAMERA OPERATOR 175 [place] [address] PCP - General Certified Nurse Practitioner 03/30/21 Revenue Enforcement Collection Agent Relationship Specialty Start Date End Date Ani Worley CNP [address] [facility] [address] [place] [address] PCP - General Family Medicine 06/03/21 Ani Worley CNP [address] [facility] [address] [place] [address] Family Medicine 06/03/21 Prashanth Hercules MD [facility] Trang Castillo [address] [place] [address] Consulting Physician Addiction Medicine 10/02/21 Revenue Enforcement Collection Agent Relationship Specialty Start Date End Date Ani Worley CNP [address] [facility] [address] [place] [address] PCP - General Family Medicine 06/03/21 Ani Worley PROCESS CAMERA OPERATOR [address] [place] [address] Family Medicine 06/03/21 Revenue Enforcement Collection Agent Relationship Specialty Start Date End Date Ani Worley CNP [address] [place] [address] PCP - General Family Medicine 06/03/21 Ani Worley PROCESS CAMERA OPERATOR [address] [place] [address] Family Medicine 06/03/21 Revenue Enforcement Collection Agent Relationship Specialty Start Date End Date Ani Worley PROCESS CAMERA OPERATOR [address] [place] [address] PCP - General Family Medicine 06/03/21 Ani Worley PROCESS CAMERA OPERATOR [address] [place] [address] Family Medicine 06/03/21 Revenue Enforcement Collection Agent Relationship Specialty Start Date End Date Ani Worley CNP [address] [place] [address] PCP - General Family Medicine 06/03/21 Ani Worley PROCESS CAMERA OPERATOR [address] [place] [address] Family Medicine 06/03/21 Revenue Enforcement Collection Agent Relationship Specialty Start Date End Date Ani Worley CNP [address] [place] [address] PCP - General Family Medicine 06/03/21 Ani Worley CNP [address] [place] [address] Family Medicine 06/03/21 Revenue Enforcement Collection Agent Relationship Specialty Start Date End Date Ani Worley CNP [address] [place] [address] PCP - General Family Medicine 06/03/21 Ani Worley PROCESS CAMERA OPERATOR [address] [place] [address] Family Medicine 06/03/21 Revenue Enforcement Collection Agent Relationship Specialty Start Date End Date Ani Worley CNP [address] [place] [address] PCP - General Family Medicine 06/03/21 Ani Worley PROCESS CAMERA OPERATOR [address] [place] [address] Family Medicine 06/03/21 Revenue Enforcement Collection Agent Relationship Specialty Start Date End Date Ani Worley CNP [address] [place] [address] PCP - General Family Medicine 06/03/21 Ani Worley, PROCESS CAMERA OPERATOR [address] [place] [address] Family Medicine 06/03/21 Revenue Enforcement Collection Agent Relationship Specialty Start Date End Date Ani Worley CNP [address] [place] [address] PCP - General Family Medicine 06/03/21 Ani Worley CNP [address] [place] [address] Family Medicine 06/03/21 Revenue Enforcement Collection Agent Relationship Specialty Start Date End Date Ani Worley CNP [address] [place] [address] PCP - General Family Medicine 06/03/21 Ani Worley PROCESS CAMERA OPERATOR [address] [place] [address] Family Medicine 06/03/21 Revenue Enforcement Collection Agent Relationship Specialty Start Date End Date Ani Worley CNP [address] [facility] [address] [place] [address] PCP - General Family Medicine 06/03/21 Ani Worley PROCESS CAMERA OPERATOR [address] [place] [address] Family Medicine 06/03/21 Revenue Enforcement Collection Agent Relationship Specialty Start Date End Date Ani Worley CNP [address] [facility] [address] [place] [address] PCP - General Family Medicine 06/03/21 Ani Worley CNP [address] [place] [address] Family Medicine 06/03/21 Revenue Enforcement Collection Agent Relationship Specialty Start Date End Date Ani Worley CNP [address] [place] [address] PCP - General Family Medicine 12/22/23 Ani Worley CNP [address] [facility] [address] [place] [address] Family Medicine 06/03/21 Ani Worley CNP [address] [facility] [address] [place] [address] Referring Physician Family Medicine 12/22/23 Revenue Enforcement Collection Agent Relationship Specialty Start Date End Date Ani Worley CNP [address] [facility] [address] [place] [address] PCP - General Family Medicine 12/22/23 Ani Worley CNP [address] [facility] [address] [place] [address] Family Medicine 06/03/21 Ani Worley CNP [address] [facility] [address] [place] [address] Referring Physician Family Medicine 12/22/23 Revenue Enforcement Collection Agent Relationship Specialty Start Date End Date Ani Worley CNP [address] [facility] [address] [place] [address] PCP - General Family Medicine 12/22/23 Ani Worley CNP [address] [facility] [address] [place] [address] Family Medicine 06/03/21 Ani Worley CNP [address] [facility] [address] [place] [address] Referring Physician Family Medicine 12/22/23 Revenue Enforcement Collection Agent Relationship Specialty Start Date End Date Ani Worley CNP [address] [facility] [address] [place] [address] PCP - General Family Medicine 12/22/23 Ani Worley CNP [address] [place] [address] Family Medicine 06/03/21 Ani Worley CNP [address] [place] [address] Referring Physician Family Medicine 12/22/23 Revenue Enforcement Collection Agent Relationship Specialty Start Date End Date Ani Worley CNP [address] [place] [address] PCP - General Family Medicine 12/22/23 Ani Worley CNP [address] [place] [address] Family Medicine 06/03/21 Ani Worley CNP [address] [place] [address] Referring Physician Family Medicine 12/22/23 Revenue Enforcement Collection Agent Relationship Specialty Start Date End Date Ani Worley CNP [address] [place] [address] PCP - General Family Medicine 12/22/23 Ani Worley CNP [address] [place] [address] Family Medicine 06/03/21 Ani Worley CNP [address] [place] [address] Referring Physician Family Medicine 12/22/23 Revenue Enforcement Collection Agent Relationship Specialty Start Date End Date Ani Worley CNP [address] [place] [address] PCP - General Family Medicine 12/22/23 Ani Worley CNP [address] [place] [address] Family Medicine 06/03/21 Ani Worley CNP [address] [place] [address] Referring Physician Family Medicine 12/22/23 Revenue Enforcement Collection Agent Relationship Specialty Start Date End Date Ani Worley CNP [address] [place] [address] PCP - General Family Medicine 12/22/23 Ani Worley PROCESS CAMERA OPERATOR [address] [place] [address] Family Medicine 06/03/21 Ani Worley CNP [address] [place] [address] Referring Physician Family Medicine 12/22/23 Revenue Enforcement Collection Agent Relationship Specialty Start Date End Date Ani Worley CNP [address] [place] [address] PCP - General Family Medicine 12/22/23 Ani Worley PROCESS CAMERA OPERATOR [address] [place] [address] Family Medicine 06/03/21 Ani Worley CNP [address] [place] [address] Referring Physician Family Medicine 12/22/23 Revenue Enforcement Collection Agent Relationship Specialty Start Date End Date Ain Worley CNP [address] [place] [address] PCP - General Family Medicine 12/22/23 Ani Worley CNP [address] [place] [address] Family Medicine 06/03/21 Ani Worley CNP [address] [place] [address] Referring Physician Family Medicine 12/22/23 Revenue Enforcement Collection Agent Relationship Specialty Start Date End Date Ani Worley CNP [address] [place] [address] PCP - General Family Medicine 12/22/23 Ani Worley CNP [address] [facility] [address] [place] [address] Family Medicine 06/03/21 Ani Worley CNP [address] [facility] [address] [place] [address] Referring Physician Family Medicine 12/22/23 Cecilia Gonzales DPM [address] [place] [address] [address] Consulting Physician Podiatry 01/02/25 Revenue Enforcement Collection Agent Relationship Specialty Start Date End Date Ani Worley CNP [address] [address] PCP - General Family Medicine 12/22/23 Ani Worley CNP [address] [address] Family Medicine 06/03/21 Ani Worley CNP [address] [address] Referring Physician Family Medicine 12/22/23 Cecilia Gonzales DPM [address] [place] [address] Consulting Physician Podiatry 01/02/25 Revenue Enforcement Collection Agent Relationship Specialty Start Date End Date Ani Worley CNP [address] [address] PCP - General Family Medicine 12/22/23 Ani Worley CNP [address] [address] Family Medicine 06/03/21 Ani Worley CNP [address] [address] Referring Physician Family Medicine 12/22/23 Cecilia Gonzales DPM [address] [place] [address] Consulting Physician Podiatry 01/02/25 Revenue Enforcement Collection Agent Relationship Specialty Start Date End Date Ani Worley CNP [address] [address] PCP - General Family Medicine 12/22/23 Ani Worley CNP [address] [facility] [address] [place] [address] Family Medicine 06/03/21 Ani Worley CNP [address] [facility] [address] [place] [address] Referring Physician Family Medicine 12/22/23 Cecilia Gonzales DPM [address] [place] [address] Consulting Physician Podiatry 01/02/25 Revenue Enforcement Collection Agent Relationship Specialty Start Date End Date Ani Worley CNP [address] [address] PCP - General Family Medicine 12/22/23 Ani Worley CNP [address] [address] Family Medicine 06/03/21 Ani Worley CNP [address] [address] Referring Physician Family Medicine 12/22/23 Cecilia Gonzales DPM [address] [place] [address] Consulting Physician Podiatry 01/02/25 Revenue Enforcement Collection Agent Relationship Specialty Start Date End Date Ani Worley CNP [address] [facility] [address] [place] [address] PCP - General Family Medicine 12/22/23 Ani Worley CNP [address] [facility] [address] [place], [place] [address] Family Medicine 06/03/21 Ani Worley CNP [address] [facility] [address] [place] [address] Referring Physician Family Medicine 12/22/23 Cecilia Gonzales DPM [address] [place] [address] Consulting Physician Podiatry 01/02/25 Revenue Enforcement Collection Agent Relationship Specialty Start Date End Date Ani Worley CNP [address] [address] PCP - General Family Medicine 12/22/23 Ani Worley CNP [address] [address] Family Medicine 06/03/21 Ani Worley CNP [address] [address] Referring Physician Family Medicine 12/22/23 Cecilia Gonzales DPM [address] [place] [phone] Consulting Physician Podiatry 01/02/25 Revenue Enforcement Collection Agent Relationship Specialty Start Date End Date Ani Worley CNP [address] [facility] [address] [place] [address] PCP - General Family Medicine 12/22/23 Ani Worley CNP [address] [facility] [address] [place] [address] Family Medicine 06/03/21 Ani Worley CNP [address] [facility] [address] [place] [address] Referring Physician Family Medicine 12/22/23 Cecilia Gonzales DPM [address] [place] [address] Consulting Physician Podiatry 01/02/25 Revenue Enforcement Collection Agent Relationship Specialty Start Date End Date Ani Worley CNP [address] [facility] [address] [place] [address] PCP - General Family Medicine 12/22/23 Ani Worley CNP [address] [facility] [address] [place] [address] Family Medicine 06/03/21 Ani Worley CNP [address] [facility] [address] [place] [address] Referring Physician Family Medicine 12/22/23 Cecilia Gonzales DPM [address] [place] [address] Consulting Physician Podiatry 01/02/25 Revenue Enforcement Collection Agent Relationship Specialty Start Date End Date Ani Worley CNP PCP - General Family Medicine 12/22/23 Ani Worley CNP Family Medicine 06/03/21 Ani Worley CNP Referring Physician Family Medicine 12/22/23 Cecilia Gonzales DPM [address] [place] [phone] Consulting Physician Podiatry 01/02/25 Revenue Enforcement Collection Agent Relationship Specialty Start Date End Date Ani Worley CNP PCP - General Family Medicine 12/22/23 Ani Worley CNP Family Medicine 06/03/21 Ani Worley PROCESS CAMERA OPERATOR Referring Physician Family Medicine 12/22/23 Cecilia Gonzales DPM [address] [place] [phone] Consulting Physician Podiatry 01/02/25 Revenue Enforcement Collection Agent Relationship Specialty Start Date End Date Ani Worley CNP [address] [facility] [place] [address] PCP - General Family Medicine 12/22/23 Ani Worley PROCESS CAMERA OPERATOR [address] [facility] [place] [address] Family Medicine 06/03/21 Ani Worley CNP [address] [place] [address] Referring Physician Family Medicine 12/22/23 Cecilia Gonzales DPM [address] [place], [place] [address]tr[place] [address] Consulting Physician Podiatry 01/02/25 FOR RECORDS PERTAINING [...] BE BASED ON THE PRIMARY CLINICAL RECORDS. [employer] [facility]. provides no warranty or guarantee of the accuracy or completeness of information in this document.
[2025-08-01 09:15] LABS: Hematocrit 29.9 % (40-54); Hemoglobin 9.2 g/dL (13.0-16.5); Mean Corp Hgb Conc 30.8 g/dL (32-36); Mean Corpuscular Volume 67.6 fL (80-94); Platelet Count 101 K/mm3 (150-450); RBC Distribution Width CV 17.3 % (11.6-14.6); RBC Distribution Width SD 41.7 fl (35.1-43.9); Red Blood Count 4.42 M/mm3 (4.6-6.2); White Blood Count 3.0 K/mm3 (4.4-11.0)
[2025-08-01 09:27] LABS: Vancomycin, Trough Level 6.4 ug/mL (5.0-15.0)
[2025-08-01 09:33] LABS: Anion Gap 7 (5-15); BUN 17 mg/dL (4-19); BUN/Creat Ratio 31.9 RATIO (10-20); CRP 4.16 mg/L (0.0-3.0); Calcium,Total 9.0 mg/dL (7.6-11.0); Carbon Dioxide 37.0 mmol/L (21.0-32.0); Chloride 87 mmol/L (98-108); Glucose 112 mg/dL (70-99); Potassium 4.0 mmol/L (3.3-5.1)
== END ==
LOC: OLS.ACW100 05:00
PROVIDERS: Visit Provider Family Medicine
DX: K74.69 Other cirrhosis of liver (principal); J44.9 Chronic obstructive pulmonary disease, unspecified; B19.20 Unspecified viral hepatitis C without hepatic coma; R18.8 Other ascites; E11.9 Type 2 diabetes mellitus without complications
CPT/HCPCS: 36415; 80048; 80202; 85027; 85652; 86140

== ENCOUNTER → 2025-08-09 05:00 | Outpatient (REF) | payer MEDICARE, SELFPAY ==
--- OUTSIDE RECORDS SUMMARY | 2025-08-09 04:20 | XMS RPT_ITS | CCD ---
Author Organization [facility] Care Team Providers Care Panel Saw Operator Name Role Phone Norman Baldwin Unavailable Brar, [...] Unavailable Unavailable Exten, Sb L. Unavailable Unavailable Venice, Riaz S Unavailable Unavailable Venice, Riaz S Unavailable Unavailable Brar, Memo E [...] Unavailable Unavailable NicolasaNorman gay Primary Care Provider [phone] Palmer Givens Primary Care Provider Palmer Givens Primary Care Provider Leighton, Mari Anali. Primary Care Provider SECOR, MARI Anali Primary Care Unavailable PRASHANTH ARMENTA Attending Unavailable SECOR, MARI Anali Primary Care Unavailable ANYA GIVENS Attending Unavailable SECOR, MARI Briones Primary Care Unavailable GHAZARIAN, TEQUILA Admitting Unavailable GHBLOSSOMARIAN TEQUILA Attending Unavailable Leighton, Mari Anali. Primary Care Provider Leighton, Mari Anali Primary Care Provider [phone] Leighton, Mari Anali. Primary Care Provider [phone] Sofía Dukes Unavailable [phone] SOFÍA DUKES Referring Unavailab le SECMARY, MARI Anali. Primary Care Unavailable UMBERTO BARNETT Attending Unavailable SECOR, MARI Cary Primary Care Unavailable Leighton, Mari Anali. Primary Care Provider [phone] Leighton, Mari Anali. Primary Care Provider Leighton, Mari Anali. Primary Care Provider VENANCIO QUIROS Consulting Unavailab le SECMARY, MARI Anali. Primary Care Unavailable VENANCIO QUIROS Admitting Unavailab le [facility] Attending Un available RACHELLE PRINCE Consulting Unavaila LIZ Tiwari Consulting Unavailable MAYUR HERNANDEZ Consulting Unavailable Sofía Dukes Unavailable [phone] Leighton, Mari Luis Daniel Unavailable Unavailable Primary Care Provider UnavailDIEGO Pena Attending Unavailable Ani Worley CNP Primary Care Provider MATEO, BLANCA PINEDA Admitting Unavaila ble [facility] Consulting Susi glasgow [facility] Attending ANI Greene Primary Care Unavailable PRASHANTH HERCULES Consulting Unavailable RACHELLE PRINCE Consulting Unavaila YOLY Ruiz Consulting Unavaila phoebe Worley APRN-Ani HUSAIN Primary Care Provider [phone] Ani Worley CNP Primary Care Provider Delany PACKAGE LINE RELIEF OPERATOR, Ani M Unavailable Prashanth Hercules MD Unavailable ZHAO ABRAHAM Attending Unavailable Delany MODELING AGENT-PACKAGE LINE RELIEF OPERATOR, Ani Primary Care Provider [phone] Delany MODELING AGENT-PACKAGE LINE RELIEF OPERATOR, Ani Primary Care Provider [phone] Delany [facility], Ani Primary Care Provider Delany PACKAGE LINE RELIEF OPERATOR, Ani M Unavailable [phone] Prashanth Hercules MD Unavailable [phone] DELANY, ANI Primary Care Unavailable SELF, SELF Referring Unavailable HAY, AMI Attending Unavailable DELANY, ANI Primary Care Unavailable SELF, SELF Referring Unavailable HAY, AMI Attending Unavailable DELANY, ANI Primary Care Unavailable BARK, KRISTI E Referring Unavailable NABILA, BRIDGET Attending Unavailable DELANY, ANI Primary Care Unavailable SELF, SELF Attending Unavailable SELF, SELF Referring Unavailable DELANY, ANI Primary Care Unavailable JACKELIN, NATHAN F Referring Unavailable JACKELIN, NATHAN F Attending Unavailable DELANY, ANI Primary Care Unavailable OMAR, POWER Admitting Unavailable OMAR, POWER Attending Unavailable OMAR, POWER Referring Unavailable CONSULT, INFECTIOUS DISEASE Consulting Unav ailable DELANY, ANI Primary Care Unavailable NABILA, BRIDGET Referring Unavailable NABILA, BRIDGET Attending Unavailable SELF, SELF Referring Unavailable [...] Referring Unavailable KRISTI BRYAN Attending Unavailable DELANY, [facility] Primary Care Unavailable NABILA, BRIDGET Attending Unavailable NABILA, BRIDGET Referring Unavailable DELANY, [facility] Primary Care Unavailable NABILA, BRIDGET Attending Unavailable NABILA, BRIDGET Referring Unavailable DELANY, ANI Primary Care [...] Referring Unavailable HAY, AMI Attending Unavailable DELANY, [facility] Primary Care Unavailable JACKELIN, NATHAN F Referring Unavailable NABILA, BRIDGET Attending Unavailable DELANY, ANI Primary Care [...] Unavailable DELANY, ANI Primary Care Unavailable Delany PACKAGE LINE RELIEF OPERATOR, Ani M Primary Care Provider Delany PACKAGE LINE RELIEF OPERATOR, Ani M Unavailable DELANY, ANI M [...] Sabry Unavailable Janet SHI Cecilia Sabry Unavailable [phone] TAWANDA MORGAN Attending Unavailable DELANY, ANI M Primary Care Unavailable JACKSON AVITIA Attending Unavailab le THOMANY, ANI M Primary Care Unavailable Delany RODRIGUE, Ani M Primary Care Provider Delany PACKAGE LINE RELIEF OPERATOR, Ani M Unavailable [phone] Delany PACKAGE LINE RELIEF OPERATOR, Ani M Unavailable Delany PACKAGE LINE RELIEF OPERATOR, Ani M Primary Care Provider Delany PACKAGE LINE RELIEF OPERATOR, Ani M Unavailable Delany PACKAGE LINE RELIEF OPERATOR, Ani M Unavailable [phone] DELANY, ANI M Primary Care Unavailable DANIEL [...] Primary Care Unavailable CAMERON VARGAS Attending Unavailable [facility] Consulting Unavai pee WORLEY, ANI Burton Primary Care Unavailable ARBEN PARRISH Admitting Unavailable ACOSTA VALLEJO Admitting Unavailable SOFÍA DUKES Consulting Unavailab le MEIR, ANI Burton Primary Care Unavailable ARBEN PARRISH Attending Unavailable KINZA GARRETT Consulting Unavaila ble PRASHANTH HERCULES Consulting Unavailable REMA GENTILE Consulting Unavailable [facility] Consulting UnaKANCHAN Correia Attending Unavailable MEIR, ANI M Primary Care Unavailable SHANAE NUNEZ Admitting Unavailable MEIR, ANI M Primary Care Unavailable PRASHANTH HERCULES Consulting Unavailable STEPHENIRAJ, KRYS Admitting Unavailable LUPE PARRIHS Attending Unavailable CAROLYN CASIANO Attending UnavailSOFÍA Mahan Consulting Unavailab le MEIR, ANI M Primary Care Unavailable CARMEN CHARLES Admitting Unavai lable [facility] Consulting SOFÍA Wilcox Attending Unavailab [...] Naloxone; Translations: [NALOXONE] Drug Allergy 05-09-2025 Unknown [facility] Medications Current Medications Medication Drug Class(es) [...] Tablet Sublingual Sublingual 2.5 TABS DAILY-ICD10 CODE [id number] TO NALOXONE. 03/28/2024 8:00:00 05/18/2024 7:48:00 Aborted Start: 02-22-2024 End: 03-27-2024 Buprenorphine HCl Sublingual Tablet Sublingual 8 MG 2 tablet Tablet Sublingual Sublingual 2.5 TABS DAILY-ICD10 CODE [id number] TO NALOXONE. 02/22/2024 8:00:00 03/27/2024 9:35:00 Aborted [...] Start: 06-09-2023 naloxone (NARC AN) 4 mg/actuation [place] Administer 1 spray into one nostril for known or suspected opioid overdose. If patient worsens or does not respond, may repeat in 2-3 minutes. . 2 each 1 06/09/2023 Active Start: 06-09-2023 Start: 11-12-2021 End: 11-12-2021 naloxone (NARCAN) injection 0.4 mg naloxone (NARCAN) 4 mg/actua tion [place] (20 sources) Start: 05-16-2025 naloxone (NARC AN) 4 mg/actuation [place] Administer 1 spray into one nostril for known or suspected opioid overdose. If patient worsens or does not respond, may repeat in 2-3 minutes. . 2 each 05/16/2025 Active Start: 05-16-2025 naloxone (NARC AN) 4 mg/actuation [place] Administer 1 spray into one nostril for known or suspected opioid overdose. If patient worsens or does not respond, may repeat in 2-3 minutes. . 2 each 05/16/2025 Start: 06-09-2023 naloxone (NARC AN) 4 mg/actuation [place] Administer 1 spray into one nostril for known or suspected opioid overdose. If patient worsens or does not respond, may repeat in 2-3 minutes. . 2 each 1 06/09/2023 Suspended Start: 06-09-2023 naloxone (NARC AN) 4 mg/actuation [place] Administer 1 spray into one nostril for known or suspected opioid overdose. If patient worsens or does not respond, may repeat in 2-3 minutes. . 2 each 1 06/09/2023 Active Start: 06-09-2023 naloxone (NARC AN) 4 mg/actuation [place] Administer 1 spray into one nostril for [...] tablet 1 tablet 20 ml albumin human, alf 250 mg/ml injection (3 sources) Human Serum Albumin Start: 10-22-2024 End: 10-22-2024 25 g, Intravenous, Administer over 30 Minutes, Every 30 min, First dose on Tue10/22/24 at 1345, For 2 doses, Infuse 25 grams albumin over 30 minutes X2 bottles for total of 50 gm over 1 hour Infuse with vented tubing if product is in a glass vial. In [employer] drug library, no longer in fluid library. Start: 11-12-2021 End: 11-13-2021 albumin human 25 % injection 50 g [id number] 200 actuat albuter ol 0.09 mg/actuat metered [...] weekly for 3 weeks. Follow-up with the PACKAGE LINE RELIEF OPERATOR weekly And Dr. Garrett in 3 [...] Start: 05-28-2024 take 1 capsule by [facility] every twenty-four hours as needed for constipation Colace Oral Capsule 100 MG 1 capsule Capsule Oral Give 1 capsule by mouth every 24 hours as needed for constipation 05/28/2024 23:00:00 Start: 03-16-2023 End: 03-22-2023 Docusate (COLACE) capsule 10 0 mg docusate sodium 50 mg / sennosides, alf 8.6 mg oral tablet (5 sources) Start: [...] Start: 02-08-2023 take 1 capsule by mo [facility] four times daily Gabapentin [...] For Downtime Calculator, use: Heparin Infusion Standard 0.5 ml HYDROmorphone hydrochloride 1 mg/ml prefilled [...] Normal Sensitivity Scale For Downtime Calculator, use: Insulin SC MEALtime PREprandial Start: 07-29-2023 End: 08-11-2023 inject 1 dose by subcutaneous injection once daily 0-15 Units, Subcutaneous, At bedtime, First dose on Tue07/29/23 at 2100 For Nightly Insulin Dose Coverage, use: CORRECTIVE (Only) for BG greater than 300 Nightly CORRECTIVE Dose Method: Specific Corrective Dose Nightly Specific CORRECTIVE dose (units of insulin): 2 For Downtime Calculator, use: Insulin SC NIGHTtime Start: 07-08-2020 End: 07-09-2020 inject 1 dose by subcutaneous injection once daily 0-15 Units, Subcutaneous, At bedtime, First dose on Tue07/08/20 at 2100 For Nightly Insulin Dose Coverage, use: CORRECTIVE (Only) for BG greater than 300 Nightly CORRECTIVE Dose Method: Follow Corrective SCALE Corrective Scale to use for BG > 300: Normal Sensitivity Scale For Downtime Calculator, use: Insulin SC NIGHTtime Start: 07-08-2020 End: 07-09-2020 inject 1 dose [...] Normal Sensitivity Scale For Downtime Calculator, use: Insulin SC MEALtime PREprandial insulin lispro (AdmeLOG,Sofi LOG) injection 0-15 Units [...] Every 6 hours PRN, nausea, vomiting, Starting 07/08/20 at 0132 Start: 01-08-2020 End: 01-08-2020 take [...] syringe by withdrawing 1.3 mL of perflutren (DEFINCuturia) from the 2ml vial. Further dilute the 1.3 mL of perflutren with Sodium Chloride (NS) 0.9% to total volume of 10 ml. Chart total ML OF MIXTURE given to patient. piperacillin 3000 mg / tazobactam 375 mg injection (14 sources) Penicillin-clas s Antibacterial, beta Lactamase Inhibitor Start: 05-12-2025 End: 05-16-2025 take 3.375 g intravenously every eight hours 3.375 g, Intravenous, at 12.5 mL/hr, Every 8 hours, First dose on 05/12/25 at 1300, Start infuse 3 hours after [...] NEEDED, Starting on Tue11/13/21 at 0855, Until Tue11/15/21 at 1419, Other, If phospate <2.5, give 30mmol Extravasation Risk predniSONE 20 mg oral tablet (20 sources) Start: 10-16-2024 End: 10-20-2024 take 40 mg by mouth once daily at mealtime 40 mg, Oral, Daily, First dose on Tue10/16/24 at 0800, For 5 doses, Give with food Start: 10-11-2023 take 1 capsule by mo uth twice daily predniSONE Oral Tablet 5 MG [...] over 3 days patch 1 patch sennosides, alf 8.6 mg oral tablet (1 source) Start: 07-02-2024 End: 07-05-2024 simethicone 80 mg chewable tablet (19 sources) Start: 07-02-2024 End: 07-05-2024 take 1 tablet by mouth every six hours as needed Start: 10-10-2023 take 1 capsule by [facility] br[facility] every six hours as needed Simethicone Oral [...] 0049, For 1 dose, DEBBIE MILLS: girish overramadeo Start: 05-12-2025 End: 05-16-2025 sodium chloride (PF) [...] Analog NS5B Polymerase Inhibitor Start: 10-13-2022 End: 03-21-2023 take 1 tablet by mouth once daily [...] Intravenous, at 20 0 mL/hr, Once, On 12/8/23 at 1625, For 1 dose Indication: Skin/Soft Tissue Infection (1 source) Start: 07-30-2023 End: 08-01-2023 take 1250 mg intravenously every twelve hours 1,250 mg, Intravenous, at 250 mL/hr, Every 12 hours, First dose on 07/30/23 at 0900 Indication: Skin/Soft Tissue Infection (1 [...] 07-04-2025 AUTO NRBC 0.0 % Normal [facility] Comment on above: Performed By: #### L [id number] #### LAB [address] [address] Jack Mendoza M.D. [id number] AUTO NRBC ABS COUNT 0.00 K/mcL Normal 0.00-0.00 [facility] Comment on above: Performed By: #### L [id number] #### LAB [address] [address] Jack Mendoza M.D. [id number] BASOPHILS ABSOLUTE COUNT 0.01 K/mcL Normal 0.00-0.30 [facility] Comment on above: Performed By: #### L [id number] #### LAB [address] [place] [address] Jack Mendoza M.D. [id number] Basophils/100 WBC (Bld) 0.3 % Normal [facility] Comment on above: Performed By: #### L [id number] #### LAB [address] [place] [address] Jack Mendoza M.D. [id number] Eosinophils (Bld) [#/Vol] 0.04 10*3/uL Normal 0.00-0.50 [facility] Comment on above: Performed By: #### L [id number] #### LAB [address] [place] [address] Jack Mendoza M.D. [id number] Eosinophils/100 WBC (Bld) 1.2 % Normal [facility] Comment on above: Performed By: #### L [id number] #### LAB [address] [place] [address] Jack Mendoza M.D. [id number] Erythrocyte distribution width (RBC) [Ratio] 17.8 % High 11.6-14.8 [facility] Comment on above: Performed By: #### L [id number] #### LAB [address] [place] [address] Jack Mendoza M.D. [id number] Hematocrit (Bld) [Volume fraction] 28.0 % Low 41.0-53.0 [facility] Comment on above: Performed By: #### L [id number] #### LAB [address] [address] Jack Mendoza M.D. [id number] Hemoglobin (Bld) [Mass/Vol] 8.4 g/dL Low 13.5-17.5 [facility] Comment on above: Performed By: #### L [id number] #### LAB [address] [address] Jack Mendoza M.D. [id number] IG ABSOLUTE 0.01 K/mcL Normal 0.00-0.30 [facility] Comment on above: Performed By: #### L [id number] #### LAB [address] [address] Jack Mendoza M.D. [id number] IG PERCENT 0.30 % Normal [facility] Comment on above: Result Comment: The IG parameter is the percentage of metamyelocytes, myelocytes and promyelocytes. An immature granulocyte count (IG) of 1% or more suggests the possibility of infection, an IG count of 3% is very likely related to an infection. Performed By: #### L [id number] #### LAB [address] [address] Jack Mendoza M.D. [id number] Lymphocytes (Bld) [#/Vol] 0.77 10*3/uL Low 0.90-4.00 [facility] Comment on above: Performed By: #### L [id number] #### LAB [address] [address] Jack Mendoza M.D. [id number] Lymphocytes/100 WBC (Bld) 23.2 % [facility] Comment on above: Performed By: #### L [id number] #### LAB [address] [address] Jack Mendoza M.D. [id number] MCH (RBC) [Entitic mass] 20.6 pg Low 26.0-34.0 [facility] Comment on above: Performed By: #### L [id number] #### LAB [address] [address] Jack Mendoza M.D. [id number] MCV (RBC) [Entitic vol] 68.6 fL Low 80.0-100.0 [facility] Comment on above: Performed By: #### L [id number] #### LAB [address] [address] Jack Mendoza M.D. [id number] MEAN CORPUSCULAR HEMOGLOBIN CONC 30.0 g/dL Low 31.0-37.0 [facility] Comment on above: Performed By: #### L [id number] #### LAB [address] [address] Jack Mendoza M.D. [id number] Monocytes (Bld) [#/Vol] 0.39 10*3/uL Normal 0.30-0.90 [facility] Comment on above: Performed By: #### L [id number] #### LAB [address] [address] Jack Mendoza M.D. [id number] Monocytes/100 WBC (Bld) 11.7 % Normal [facility] Comment on above: Performed By: #### L [id number] #### LAB [address] [address] Jack Mendoza M.D. [id number] NEUTROPHILS ABSOLUTE COUNT 2.10 K/mcL Normal 1.70-7.00 [facility] Comment on above: Performed By: #### L [id number] #### LAB [address] [address] Jack Mendoza M.D. [id number] Neutrophils/100 WBC (Bld) 63.3 % Normal [facility] Comment on above: Performed By: #### L [id number] #### LAB [address] [place] [address] Jack Mendoza M.D. [id number] Platelets (Bld) [#/Vol] 89 10*3/uL Low 150-400 [facility] Comment on above: Performed By: #### L [id number] #### LAB [address] [address] Jack Mendoza M.D. [id number] RBC (Bld) [#/Vol] 4.08 10*6/uL Low 4.50-5.90 [facility] Comment on above: Performed By: #### L [id number] #### LAB [address] [address] Jack Mendoza M.D. [id number] WBC (Bld) [#/Vol] 3.32 10*3/uL Low 4.50-11.00 [facility] Comment on above: Performed By: #### L [id number] #### LAB [address] [address] Jack Mendoza M.D. [id number] HEPATIC FUNCTION PANELon ALP [Catalytic activity/Vol] 61 U/L Normal 40-150 [facility] Comment on above: Performed By: #### 4 [id number] #### LAB [address] [address] Jack Mendoza M.D. [id number] ALT [Catalytic activity/Vol] 11 U/L Normal 0-50 U/L [facility] Comment on above: Performed By: #### 4 5866 #### LAB [address] [address] Jack Mendoza M.D. [id number] AST [Catalytic activity/Vol] 21 U/L Normal 0-50 U/L [facility] Comment on above: Performed By: #### 4 5866 #### LAB [address] [address] Jack Mendoza M.D. [id number] Bilirubin [Mass/Vol] 0.6 mg/dL Normal 0.0-1.3 [facility] Comment on above: Performed By: #### 4 5866 #### LAB [address] [address] Jack Mendoza M.D. [id number] Bilirubin.indirect [Mass/Vol] 0.3 mg/dL Normal 0.0-0.4 [facility] Comment on above: Performed By: #### 4 5866 #### LAB [address] [address] Jack Mendoza M.D. [id number] Protein [Mass/Vol] 6.3 g/dL Normal 6.0-8.0 [facility] Comment on above: Performed By: #### 4 5866 #### LAB [address] [address] Jack Mendoza M.D. [id number] MAGNESIUM LEVELon 07-04-2025 Magnesium [Mass/Vol] 1.8 mg/dL Normal 1.6-2.4 [facility] Comment on above: Performed By: #### 4 6109 #### LAB [address] [address] Jack Mendoza M.D. [id number] RENAL FUNCTION PANELon 07-04 Albumin [Mass/Vol] 2.9 g/dL Low 3.2-5.2 [facility] Comment on above: Order Comment: [facility] has implemented the eGFR calculation approach that does not have a coefficient for race that conforms to the NKF-ASN Task Force Recommendations. Performed By: #### 4 [id number] #### LAB [address] [address] Jack Mendoza M.D. [id number] Performed By: #### 4 5866 #### LAB [address] [address] Jack Mendoza M.D. [id number] Anion gap [Moles/Vol] 10 mmol/L Normal 10-20 [facility] Comment on above: Order Comment: [facility] has implemented the eGFR calculation approach that does not have a coefficient for race that conforms to the NKF-ASN Task Force Recommendations. Performed By: #### 4 6449 #### LAB [address] [address] Jack Mendoza M.D. [id number] Calcium [Mass/Vol] 8.2 mg/dL Low 8.4-10.2 [facility] Comment on above: Order Comment: [facility] has implemented the eGFR calculation approach that does not have a coefficient for race that conforms to the NKF-ASN Task Force Recommendations. Performed By: #### 4 6449 #### LAB [address] [address] Jack Mendoza M.D. [id number] Chloride [Moles/Vol] 93 mmol/L Low 98-108 [facility] Comment on above: Order Comment: [facility] has implemented the eGFR calculation approach that does not have a coefficient for race that conforms to the NKF-ASN Task Force Recommendations. Performed By: #### 4 6449 #### LAB [address] [address] Jack Mendoza M.D. [id number] Creatinine [Mass/Vol] 0.53 mg/dL Normal 0.50-1.30 [facility] Comment on above: Order Comment: [facility] has implemented the eGFR calculation approach that does not have a coefficient for race that conforms to the NKF-ASN Task Force Recommendations. Performed By: #### 4 6449 #### LAB [address] [address] Jack Mendoza M.D. [id number] EGFR 116 mL/min/1.73 m2 Normal >=60 [facility] Comment on above: Order Comment: [facility] has implemented the eGFR calculation approach that does not have a coefficient for race that conforms to the NKF-ASN Task Force Recommendations. Result Comment: Ashley mated GFR was calculated using the 2020 CKD-EPI creatinine equation. Performed By: #### 4 6449 ####[facility] LAB [address] [address] Jack Mendoza M.D. [id number] Glucose [Mass/Vol] 116 mg/dL High 65-99 [facility] Comment on above: Order Comment: [facility] has implemented the eGFR calculation approach that does not have a coefficient for race that conforms to the NKF-ASN Task Force Recommendations. Performed By: #### 4 6449 #### LAB [address] [address] Jack Mendoza M.D. [id number] HCO3 (Bld) [Moles/Vol] 35 mmol/L High 21-32 [facility] Comment on above: Order Comment: [facility] has implemented the eGFR calculation approach that does not have a coefficient for race that conforms to the NKF-ASN Task Force Recommendations. Performed By: #### 4 6449 #### LAB [address] [address] Jack Mendoza M.D. [id number] Phosphate [Mass/Vol] 3.1 mg/dL Normal 2.7-4.5 [facility] Comment on above: Order Comment: [facility] has implemented the eGFR calculation approach that does not have a coefficient for race that conforms to the NKF-ASN Task Force Recommendations. Performed By: #### 4 6449 #### LAB [address] [address] Jack Mendoza M.D. [id number] Potassium [Moles/Vol] 3.9 mmol/L Normal 3.5-5.1 [facility] Comment on above: Order Comment: [facility] has implemented the eGFR calculation approach that does not have a coefficient for race that conforms to the NKF-ASN Task Force Recommendations. Performed By: #### 4 6449 #### LAB [address] [address] Jack Mendoza M.D. [id number] Sodium [Moles/Vol] 134 mmol/L Low 135-145 [facility] Comment on above: Order Comment: [facility] has implemented the eGFR calculation approach that does not have a coefficient for race that conforms to the NKF-ASN Task Force Recommendations. Performed By: #### 4 6449 #### LAB [address] [address] Jack Mendoza M.D. [id number] Urea nitrogen [Mass/Vol] 22 mg/dL Normal 8-25 [facility] Comment on above: Order Comment: [facility] has implemented the eGFR calculation approach that does not have a coefficient for race that conforms to the NKF-ASN Task Force Recommendations. Performed By: #### 4 6449 #### LAB [address] [address] Jack Mendoza M.D. [id number] Urea nitrogen/Creatinine [Mass ratio] 41.5 mg/mg High 10.0-20.0 [facility] Comment on above: Order Comment: [facility] has implemented the eGFR calculation approach that does not have a coefficient for race that conforms to the NKF-ASN Task Force Recommendations. Performed By: #### 4 6449 #### LAB [address] [address] Jack Mendoza M.D. [id number] CBC WITH AUTO DIFFERENTIALon 07-03-2025 AUTO NRBC 0.0 % [facility] Comment on above: Performed By: #### L [id number] ####[facility] LAB [address] [address] Jack Mendoza M.D. [id number] AUTO NRBC ABS COUNT 0.00 K/mcL Normal 0.00-0.00 [facility] Comment on above: Performed By: #### L [id number] #### LAB [address] [address] Jack Mendoza M.D. [id number] BASOPHILS ABSOLUTE COUNT 0.00 K/mcL Normal 0.00-0.30 [facility] Comment on above: Performed By: #### L [id number] ####[facility] [address] [id number] Jack Mendoza M.D. [id number] Basophils/100 WBC (Bld) 0.0 % [facility] Comment on above: Performed By: #### L [id number] #### LAB [address] [address] Jack Mendoza M.D. [id number] Eosinophils (Bld) [#/Vol] 0.02 10*3/uL Normal 0.00-0.50 [facility] Comment on above: Performed By: #### L [id number] #### LAB [address] [address] Jack Mendoaz M.D. [id number] Eosinophils/100 WBC (Bld) 0.4 % Normal [facility] Comment on above: Performed By: #### L [id number] #### LAB [address] [address] Jack Mendoza M.D. [id number] Erythrocyte distribution width (RBC) [Ratio] 18.1 % High 11.6-14.8 [facility] Comment on above: Performed By: #### L [id number] #### LAB [address] [address] Jack Mendoza M.D. [id number] Hematocrit (Bld) [Volume fraction] 30.9 % Low 41.0-53.0 [facility] Comment on above: Performed By: #### L [id number] #### LAB [address] [address] Jack Mendoza M.D. [id number] Hemoglobin (Bld) [Mass/Vol] 9.4 g/dL Low 13.5-17.5 [facility] Comment on above: Performed By: #### L [id number] #### LAB [address] [place] [address] Jack Mendoza M.D. [id number] IG ABSOLUTE 0.03 K/mcL Normal 0.00-0.30 [facility] Comment on above: Performed By: #### L [id number] #### LAB [address] [place] [address] Jack Mendoza M.D. [id number] IG PERCENT 0.60 % [facility] Comment on above: Result Comment: The IG parameter is the percentage of metamyelocytes, myelocytes and promyelocytes. An immature granulocyte count (IG) of 1% or more suggests the possibility of infection, an IG count of 3% is very likely related to an infection. Performed By: #### L [id number] #### LAB [address] [address] Jack Mendoza M.D. [id number] Lymphocytes (Bld) [#/Vol] 0.99 10*3/uL Normal 0.90-4.00 [facility] Comment on above: Performed By: #### L [id number] #### LAB [address] [address] Jack Mendoza M.D. [id number] Lymphocytes/100 WBC (Bld) 19.4 % Normal [facility] Comment on above: Performed By: #### L [id number] ####[facility] [address] [address] Jack Mendoza M.D. [id number] MCH (RBC) [Entitic mass] 20.9 pg Low 26.0-34.0 [facility] Comment on above: Performed By: #### L [id number] #### LAB [address] [address] Jack Mendoza M.D. [id number] MCV (RBC) [Entitic vol] 68.8 fL Low 80.0-100.0 [facility] Comment on above: Performed By: #### L [id number] #### LAB [address] [place] [address] Jack Mendoza M.D. [id number] MEAN CORPUSCULAR HEMOGLOBIN CONC 30.4 g/dL Low 31.0-37.0 [facility] Comment on above: Performed By: #### L [id number] ####[facility] [address] [address] Jack Mendoza M.D. [id number] Monocytes (Bld) [#/Vol] 0.72 10*3/uL Normal 0.30-0.90 [facility] Comment on above: Performed By: #### L [id number] ####[facility] LAB [address] [place] [address] Jack Mendoza M.D. [id number] Monocytes/100 WBC (Bld) 14.1 % Normal [facility] Comment on above: Performed By: #### L [id number] #### LAB [address] [address] Jack Menodza M.D. [id number] NEUTROPHILS ABSOLUTE COUNT 3.35 K/mcL Normal 1.70-7.00 [facility] Comment on above: Performed By: #### L [id number] #### LAB [address] [address] Jack Mendoza M.D. [id number] Neutrophils/100 WBC (Bld) 65.5 % Normal [facility] Comment on above: Performed By: #### L [id number] #### LAB [address] [address] Jack Mendoza M.D. [id number] Platelets (Bld) [#/Vol] 116 10*3/uL Low 150-400 [facility] Comment on above: Performed By: #### L [id number] #### LAB [address] [address] Jack Mendoza M.D. [id number] RBC (Bld) [#/Vol] 4.49 10*6/uL Low 4.50-5.90 [facility] Comment on above: Performed By: #### L [id number] #### LAB [address] [address] Jack Mendoza M.D. [id number] WBC (Bld) [#/Vol] 5.11 10*3/uL Normal 4.50-11.00 [facility] Comment on above: Performed By: #### L [id number] #### LAB [address] [address] Jack Mendoza M.D. [id number] HEPATIC FUNCTION PANELon ALP [Catalytic activity/Vol] 65 U/L Normal 40-150 [facility] Comment on above: Performed By: #### 4 5866 ####[facility] [address] [address] Jack Mendoza M.D. [id number] ALT [Catalytic activity/Vol] 11 U/L Normal 0-50 U/L [facility] Comment on above: Performed By: #### 4 5866 #### LAB [address] [address] Jack Mendoza M.D. [id number] AST [Catalytic activity/Vol] 21 U/L Normal 0-50 U/L [facility] Comment on above: Performed By: #### 4 5866 ####[facility] [address] [address] Jack Mendoza M.D. [id number] Bilirubin [Mass/Vol] 0.7 mg/dL Normal 0.0-1.3 [facility] Comment on above: Performed By: #### 4 5866 #### LAB [address] [address] Jack Mendoza M.D. [id number] Bilirubin.indirect [Mass/Vol] 0.3 mg/dL Normal 0.0-0.4 [facility] Comment on above: Performed By: #### 4 5866 #### LAB [address] [address] Jack Mendoza M.D. [id number] Protein [Mass/Vol] 6.5 g/dL Normal 6.0-8.0 [facility] Comment on above: Performed By: #### 4 5866 #### LAB [address] [address] Jack Mendoza M.D. [id number] MAGNESIUM LEVELon 07-03-2025 Magnesium [Mass/Vol] 2.1 mg/dL Normal 1.6-2.4 [facility] Comment on above: Performed By: #### 4 6109 #### LAB [address] [address] Jack Mendoza M.D. [id number] POC GLUCOSE - [facility] 025 Glucose [Mass/Vol] 156 mg/dL High 65-99 [facility] Glucose [Mass/Vol] 138 mg/dL High 65-99 [facility] PT/INRon 07-03-2025 INR Coag (PPP) [Relative time] 1.2 {INR} High 0.8-1.1 [facility] Comment on above: Order Comment: Paxton miller the induction phase of oral anticoagulation, the INR may not reflect the anticoagulation status of the patient. Therapeutic ranges for INR's are:Most clinical situations: INR 2.0-3.0Mechanical Prosthetic Valve: INR 2.5-3.5Critical: INR >5.0 Performed By: #### 4 6391 #### LAB [address] [place], [place] [address] Jack Mendoza M.D. [id number] PT Coag (PPP) [Time] 15.7 s High 11.8-14.3 [facility] Comment on above: Order Comment: Paxton miller the induction phase of oral anticoagulation, the INR may not reflect the anticoagulation status of the patient. Therapeutic ranges for INR's are:Most clinical situations: INR 2.0-3.0Mechanical Prosthetic Valve: INR 2.5-3.5Critical: INR >5.0 Performed By: #### 4 6391 #### LAB [address] [address] Jack Mendoza M.D. [id number] RENAL FUNCTION PANELon 07-03 Albumin [Mass/Vol] 3.0 g/dL Low 3.2-5.2 [facility] Comment on above: Order Comment: [facility] has implemented the eGFR calculation approach that does not have a coefficient for race that conforms to the NKF-ASN Task Force Recommendations. Performed By: #### 4 6449 #### LAB [address] [address] Jack Mendoza M.D. [id number] Performed By: #### 4 5866 #### LAB [address] [place], [place] [address] Jack Mendoza M.D. [id number] Anion gap [Moles/Vol] 7 mmol/L Low 10-20 [facility] Comment on above: Order Comment: [facility] has implemented the eGFR calculation approach that does not have a coefficient for race that conforms to the NKF-ASN Task Force Recommendations. Performed By: #### 4 6449 #### LAB [address] [address] Jack Mendoza M.D. [id number] Calcium [Mass/Vol] 8.1 mg/dL Low 8.4-10.2 [facility] Comment on above: Order Comment: [facility] has implemented the eGFR calculation approach that does not have a coefficient for race that conforms to the NKF-ASN Task Force Recommendations. Performed By: #### 4 6449 #### LAB [address] [address] Jack Mendoza M.D. [id number] Chloride [Moles/Vol] 94 mmol/L Low 98-108 [facility] Comment on above: Order Comment: [facility] has implemented the eGFR calculation approach that does not have a coefficient for race that conforms to the NKF-ASN Task Force Recommendations. Performed By: #### 4 6449 ####[facility] LAB [address] [address] Jack Mendoza M.D. [id number] Creatinine [Mass/Vol] 0.55 mg/dL Normal 0.50-1.30 [facility] Comment on above: Order Comment: [facility] has implemented the eGFR calculation approach that does not have a coefficient for race that conforms to the NKF-ASN Task Force Recommendations. Performed By: #### 4 6449 #### LAB [address] [address] Jack Mendoza M.D. [id number] EGFR 115 mL/min/1.73 m2 Normal >=60 [facility] Comment on above: Order Comment: [facility] has implemented the eGFR calculation approach that does not have a coefficient for race that conforms to the NKF-ASN Task Force Recommendations. Result Comment: Ashley mated GFR was calculated using the 2020 CKD-EPI creatinine equation. Performed By: #### 4 6449 #### LAB [address] [address] Jack Mendoza M.D. [id number] Glucose [Mass/Vol] 130 mg/dL High 65-99 [facility] Comment on above: Order Comment: [facility] has implemented the eGFR calculation approach that does not have a coefficient for race that conforms to the NKF-ASN Task Force Recommendations. Performed By: #### 4 6449 #### LAB [address] [address] Jack Mendoza M.D. [id number] HCO3 (Bld) [Moles/Vol] 35 mmol/L High 21-32 [facility] Comment on above: Order Comment: [facility] has implemented the eGFR calculation approach that does not have a coefficient for race that conforms to the NKF-ASN Task Force Recommendations. Performed By: #### 4 6449 #### LAB [address] [address] Jack Mendoza M.D. [id number] Phosphate [Mass/Vol] 2.6 mg/dL Low 2.7-4.5 [facility] Comment on above: Order Comment: [facility] has implemented the eGFR calculation approach that does not have a coefficient for race that conforms to the NKF-ASN Task Force Recommendations. Performed By: #### 4 6449 #### LAB [address] [address] Jack Mendoza M.D. [id number] Potassium [Moles/Vol] 4.3 mmol/L Normal 3.5-5.1 [facility] Comment on above: Order Comment: [facility] has implemented the eGFR calculation approach that does not have a coefficient for race that conforms to the NKF-ASN Task Force Recommendations. Performed By: #### 4 6449 ####[facility] [address] [address] Jack Mendoza M.D. [id number] Sodium [Moles/Vol] 132 mmol/L Low 135-145 [facility] Comment on above: Order Comment: [facility] has implemented the eGFR calculation approach that does not have a coefficient for race that conforms to the NKF-ASN Task Force Recommendations. Performed By: #### 4 6449 #### LAB [address] [address] Jack Mendoza M.D. [id number] Urea nitrogen [Mass/Vol] 23 mg/dL Normal 8-25 [facility] Comment on above: Order Comment: [facility] has implemented the eGFR calculation approach that does not have a coefficient for race that conforms to the NKF-ASN Task Force Recommendations. Performed By: #### 4 6449 #### LAB [address] [address] Jack Mendoza M.D. [id number] Urea nitrogen/Creatinine [Mass ratio] 41.8 mg/mg High 10.0-20.0 [facility] Comment on above: Order Comment: [facility] has implemented the eGFR calculation approach that does not have a coefficient for race that conforms to the NKF-ASN Task Force Recommendations. Performed By: #### 4 6449 #### LAB [address] [address] Jack Mendoza M.D. [id number] VANCOMYCIN LEVEL, RANDOMon 1 09-02-2024 VANCOMYCIN RANDOM 22.8 mcg/mL Normal [facility] Comment on above: Order Comment: As of 05/2022 vancomycin dosing for [facility] inpatients will be done by Bayesian dosing software rather than off traditional trough values. Please contact the site specific inpatient pharmacy before making dose changes off of trough values alone for admitted patients.No established reference range. Performed By: #### 4 6651 ####[facility] [address] [address] Jack Mendoza M.D. [id number] CBC WITH AUTO DIFFERENTIALon 07-02-2025 AUTO NRBC 0.0 % Normal [facility] Comment on above: Performed By: #### L [id number] ####[facility] [address] [address] Jack Mendoza M.D. [id number] AUTO NRBC ABS COUNT 0.00 K/mcL Normal 0.00-0.00 [facility] Comment on above: Performed By: #### L [id number] #### LAB [address] [address] Jack Mendoza M.D. [id number] BASOPHILS ABSOLUTE COUNT 0.01 K/mcL Normal 0.00-0.30 [facility] Comment on above: Performed By: #### L [id number] #### LAB [address] [address] Jack Mendoza M.D. [id number] Basophils/100 WBC (Bld) 0.1 % Normal [facility] Comment on above: Performed By: #### L [id number] #### LAB [address] [address] Jack Mendoza M.D. [id number] Eosinophils (Bld) [#/Vol] 0.00 10*3/uL Normal 0.00-0.50 [facility] Comment on above: Performed By: #### L [id number] #### LAB [address] [address] Jack Mendoza M.D. [id number] Eosinophils/100 WBC (Bld) 0.0 % [facility] Comment on above: Performed By: #### L [id number] #### LAB [address] [place] [address] Jack Mendoza M.D. [id number] Erythrocyte distribution width (RBC) [Ratio] 17.8 % High 11.6-14.8 [facility] Comment on above: Performed By: #### L [id number] #### LAB [address] [address] Jack Mendoza M.D. [id number] Hematocrit (Bld) [Volume fraction] 30.6 % Low 41.0-53.0 [facility] Comment on above: Performed By: #### L [id number] #### LAB [address] [address] Jack Mendoza M.D. [id number] Hemoglobin (Bld) [Mass/Vol] 9.2 g/dL Low 13.5-17.5 [facility] Comment on above: Performed By: #### L [id number] #### LAB [address] [address] Jack Mendoza M.D. [id number] IG ABSOLUTE 0.04 K/mcL Normal 0.00-0.30 [facility] Comment on above: Performed By: #### L [id number] #### LAB [address] [address] Jack Mendoza M.D. [id number] IG PERCENT 0.60 % Normal [facility] Comment on above: Result Comment: The IG parameter is the percentage of metamyelocytes, myelocytes and promyelocytes. An immature granulocyte count (IG) of 1% or more suggests the possibility of infection, an IG count of 3% is very likely related to an infection. Performed By: #### L [id number] #### LAB [address] [place] [address] Jack Mendoza M.D. [id number] Lymphocytes (Bld) [#/Vol] 0.58 10*3/uL Low 0.90-4.00 [facility] Comment on above: Performed By: #### L [id number] #### LAB [address] [address] Jack Mendoza M.D. [id number] Lymphocytes/100 WBC (Bld) 8.4 % Normal [facility] Comment on above: Performed By: #### L [id number] #### LAB [address] [address] Jack Mendoza M.D. [id number] MCH (RBC) [Entitic mass] 20.6 pg Low 26.0-34.0 [facility] Comment on above: Performed By: #### L [id number] #### LAB [address] [address] Jack Mendoza M.D. [id number] MCV (RBC) [Entitic vol] 68.5 fL Low 80.0-100.0 [facility] Comment on above: Performed By: #### L [id number] #### LAB [address] [address] Jack Mendoza M.D. [id number] MEAN CORPUSCULAR HEMOGLOBIN CONC 30.1 g/dL Low 31.0-37.0 [facility] Comment on above: Performed By: #### L [id number] #### LAB [address] [address] Jack Mendoza M.D. [id number] Monocytes (Bld) [#/Vol] 0.74 10*3/uL Normal 0.30-0.90 [facility] Comment on above: Performed By: #### L [id number] #### LAB [address] [address] Jack Mendoza M.D. [id number] Monocytes/100 WBC (Bld) 10.7 % Normal [facility] Comment on above: Performed By: #### L [id number] #### LAB [address] [address] Jack Mendoza M.D. [id number] NEUTROPHILS ABSOLUTE COUNT 5.57 K/mcL Normal 1.70-7.00 [facility] Comment on above: Performed By: #### L [id number] #### LAB [address] [address] Jack Mendoza M.D. [id number] Neutrophils/100 WBC (Bld) 80.2 % Normal [facility] Comment on above: Performed By: #### L [id number] #### LAB [address] [address] Jcak Mendoza M.D. [id number] Platelet mean volume (Bld) [Entitic vol] 11.7 fL Normal 9.4-12.4 [facility] Comment on above: Performed By: #### L [id number] #### LAB [address] [address] Jack Mendoza M.D. [id number] Platelets (Bld) [#/Vol] 118 10*3/uL Low 150-400 [facility] Comment on above: Performed By: #### L [id number] ####[facility] [address] [address] Jack Mendoza M.D. [id number] RBC (Bld) [#/Vol] 4.47 10*6/uL Low 4.50-5.90 [facility] Comment on above: Performed By: #### L [id number] ####[facility] [address] [address] Jack Mendoza M.D. [id number] WBC (Bld) [#/Vol] 6.94 10*3/uL Normal 4.50-11.00 [facility] Comment on above: Performed By: #### L [id number] ####[facility] [address] [address] Jack Mendoza M.D. [id number] CONSULTon 07-02-2025 CONSULT Normal [facility] HEPATIC FUNCTION PANELon Albumin [Mass/Vol] 2.7 g/dL Low 3.2-5.2 [facility] Comment on above: Performed By: #### 4 5866 ####[facility] [address] [address] Jack Mendoza M.D. [id number] ALP [Catalytic activity/Vol] 59 U/L Normal 40-150 [facility] Comment on above: Performed By: #### 4 5866 ####[facility] [address] [address] Jack Mendoza M.D. [id number] ALT [Catalytic activity/Vol] 16 U/L Normal 0-50 U/L [facility] Comment on above: Performed By: #### 4 5866 ####[facility] [address] [address] Jack Mendoza M.D. [id number] AST [Catalytic activity/Vol] 29 U/L Normal 0-50 U/L [facility] Comment on above: Performed By: #### 4 5866 ####[facility] [address] [address] Jack Mendoza M.D. [id number] Bilirubin [Mass/Vol] 0.6 mg/dL Normal 0.0-1.3 [facility] Comment on above: Performed By: #### 4 5866 #### LAB [address] [address] Jack Mendoza M.D. [id number] Bilirubin.indirect [Mass/Vol] 0.3 mg/dL Normal 0.0-0.4 [facility] Comment on above: Performed By: #### 4 5866 #### LAB [address] [address] Jack Mendoza M.D. [id number] Protein [Mass/Vol] 6.2 g/dL Normal 6.0-8.0 [facility] Comment on above: Performed By: #### 4 5866 #### LAB [address] [address] Jack Mendoza M.D. [id number] MAGNESIUM LEVELon 07-02-2025 Magnesium [Mass/Vol] 2.1 mg/dL Normal 1.6-2.4 [facility] Comment on above: Performed By: #### 4 6109 #### LAB [address] [address] Jack Mendoza M.D. [id number] POC GLUCOSE [facility] 025 Glucose [Mass/Vol] 156 mg/dL High 65-[address] [place] [address] Glucose [Mass/Vol] 127 mg/dL High -[address] [place] [address] Glucose [Mass/Vol] 167 mg/dL High -[address] [place] [address] Glucose [Mass/Vol] 174 mg/dL High -[address] [place] [address] RENAL FUNCTION PANELon 07-02 Albumin [Mass/Vol] 2.8 g/dL Low 3.2-5.2 [facility] Comment on above: Order Comment: [facility] has implemented the eGFR calculation approach that does not have a coefficient for race that conforms to the NKF-ASN Task Force Recommendations. Performed By: #### 4 6449 #### LAB [address] [address] Jack Mendoza M.D. [id number] Anion gap [Moles/Vol] 8 mmol/L Low 10-20 [facility] Comment on above: Order Comment: [facility] has implemented the eGFR calculation approach that does not have a coefficient for race that conforms to the NKF-ASN Task Force Recommendations. Performed By: #### 4 6449 #### LAB [address] [place], [place] [address] Jack Mendoza M.D. [id number] Calcium [Mass/Vol] 8.0 mg/dL Low 8.4-10.2 [facility] Comment on above: Order Comment: [facility] has implemented the eGFR calculation approach that does not have a coefficient for race that conforms to the NKF-ASN Task Force Recommendations. Performed By: #### 4 6449 #### LAB [address] [place], [place] [address] Jack Mendoza M.D. [id number] Chloride [Moles/Vol] 96 mmol/L Low 98-108 [facility] Comment on above: Order Comment: [facility] has implemented the eGFR calculation approach that does not have a coefficient for race that conforms to the NKF-ASN Task Force Recommendations. Performed By: #### 4 6449 #### LAB [address] [place], [place] [address] Jack Mendoza M.D. [id number] Creatinine [Mass/Vol] 0.60 mg/dL Normal 0.50-1.30 [facility] Comment on above: Order Comment: [facility] has implemented the eGFR calculation approach that does not have a coefficient for race that conforms to the NKF-ASN Task Force Recommendations. Performed By: #### 4 6449 #### LAB [address] [place], [place] [address] Jack Mendoza M.D. [id number] EGFR 112 mL/min/1.73 m2 Normal >=60 [facility] Comment on above: Order Comment: [facility] has implemented the eGFR calculation approach that does not have a coefficient for race that conforms to the NKF-ASN Task Force Recommendations. Result Comment: Ashley mated GFR was calculated using the 2020 CKD-EPI creatinine equation. Performed By: #### 4 6449 #### LAB [address] [address] Jack Mendoza M.D. [id number] Glucose [Mass/Vol] 158 mg/dL High 65-99 [facility] Comment on above: Order Comment: [facility] has implemented the eGFR calculation approach that does not have a coefficient for race that conforms to the NKF-ASN Task Force Recommendations. Performed By: #### 4 6449 ####[facility] [address] [address] Jack Mendoza M.D. [id number] HCO3 (Bld) [Moles/Vol] 35 mmol/L High 21-32 [facility] Comment on above: Order Comment: [facility] has implemented the eGFR calculation approach that does not have a coefficient for race that conforms to the NKF-ASN Task Force Recommendations. Performed By: #### 4 6449 #### LAB [address] [address] Jack Mendoza M.D. [id number] Phosphate [Mass/Vol] 3.2 mg/dL Normal 2.7-4.5 [facility] Comment on above: Order Comment: [facility] has implemented the eGFR calculation approach that does not have a coefficient for race that conforms to the NKF-ASN Task Force Recommendations. Performed By: #### 4 6449 ####[facility] [address] [address] Jack Mendoza M.D. [id number] Potassium [Moles/Vol] 5.0 mmol/L Normal 3.5-5.1 [facility] Comment on above: Order Comment: [facility] has implemented the eGFR calculation approach that does not have a coefficient for race that conforms to the NKF-ASN Task Force Recommendations. Performed By: #### 4 6449 ####[facility] [address] [address] Jack Mendoza M.D. [id number] Sodium [Moles/Vol] 134 mmol/L Low 135-145 [facility] Comment on above: Order Comment: [facility] has implemented the eGFR calculation approach that does not have a coefficient for race that conforms to the NKF-ASN Task Force Recommendations. Performed By: #### 4 6449 #### LAB [address] [place], [place] [address] Jack Mendoza M.D. [id number] Urea nitrogen [Mass/Vol] 17 mg/dL Normal 8-25 [facility] Comment on above: Order Comment: [facility] has implemented the eGFR calculation approach that does not have a coefficient for race that conforms to the NKF-ASN Task Force Recommendations. Performed By: #### 4 6449 #### LAB [address] [place], [place] [address] Jack Mendoza M.D. [id number] Urea nitrogen/Creatinine [Mass ratio] 28.3 mg/mg High 10.0-20.0 [facility] Comment on above: Order Comment: [facility] has implemented the eGFR calculation approach that does not have a coefficient for race that conforms to the NKF-ASN Task Force Recommendations. Performed By: #### 4 6449 #### LAB [address] [address] Jack Mendoza M.D. [id number] ALPHA DEFENSINon 07-01-2025 ALPHA DEFENSIN ALPHA DEFENSIN DETECTED Alpha defensin detected suggesting the presence of infection. Additional laboratory studies are recommended. Abnormal [facility] Comment on above: Performed By: #### L [id number] #### LAB [address] [place], [place] [address] Jack Mendoza M.D. [id number] BLOOD CULTURE AEROBIC/ANAERO BICon 07-01-2025 BLOOD CULTURE AEROBIC/ANAEROBIC BLOOD CULTURE No Growth after 48 hrs Normal [facility] Comment on above: Order Comment: Blood Culture sets #1 and #2 cannot be collected with the same collection times. Each set must be collected from a different site, and must have a different collection time entered that reflects the actual collection time of each set. Performed By: #### 4 4014 ####[facility] [address] [place] [address] Venancio Richardson M.D. [id number] BLOOD CULTURE AEROBIC/ANAEROBIC BLOOD CULTURE No Growth after 48 hrs [facility] Comment on above: Order Comment: Blood Culture sets #1 and #2 cannot be collected with the same collection times. Each set must be collected from a different site, and must have a different collection time entered that reflects the actual collection time of each set. Performed By: #### 4 4014 ####[facility] [address] [place] [address] Venancio Richardson M.D. [id number] CBC WITH AUTO DIFFERENTIALon 07-01-2025 AUTO NRBC 0.0 % [facility] Comment on above: Performed By: #### L [id number] #### LAB [address] [place] [address] Jack Mendoza M.D. [id number] AUTO NRBC ABS COUNT 0.00 K/mcL Normal 0.00-0.00 [facility] Comment on above: Performed By: #### L [id number] #### LAB [address] [address] Jack Mendoza M.D. [id number] BASOPHILS ABSOLUTE COUNT 0.00 K/mcL Normal 0.00-0.30 [facility] Comment on above: Performed By: #### L [id number] #### LAB [address] [address] Jack Mendoza M.D. [id number] Basophils/100 WBC (Bld) 0.0 % [facility] Comment on above: Performed By: #### L [id number] #### LAB [address] [place] [address] Jack Mendoza M.D. [id number] Eosinophils (Bld) [#/Vol] 0.00 10*3/uL Normal 0.00-0.50 [facility] Comment on above: Performed By: #### L [id number] #### LAB [address] [place] [address] Jack Mendoza M.D. [id number] Eosinophils/100 WBC (Bld) 0.0 % Normal [facility] Comment on above: Performed By: #### L [id number] #### LAB [address] [address] Jack Mendoza M.D. [id number] Erythrocyte distribution width (RBC) [Ratio] 17.8 % High 11.6-14.8 [facility] Comment on above: Performed By: #### L [id number] #### LAB [address] [address] Jack Mendoza M.D. [id number] Hematocrit (Bld) [Volume fraction] 34.9 % Low 41.0-53.0 [facility] Comment on above: Performed By: #### L [id number] #### LAB [address] [address] Jack Mendoza M.D. [id number] Hemoglobin (Bld) [Mass/Vol] 10.6 g/dL Low 13.5-17.5 [facility] Comment on above: Performed By: #### L [id number] #### LAB [address] [place] [address] Jack Mendoza M.D. [id number] IG ABSOLUTE 0.01 K/mcL Normal 0.00-0.30 [facility] Comment on above: Performed By: #### L [id number] #### LAB [address] [address] Jack Mendoza M.D. [id number] IG PERCENT 0.50 % Normal [facility] Comment on above: Result Comment: The IG parameter is the percentage of metamyelocytes, myelocytes and promyelocytes. An immature granulocyte count (IG) of 1% or more suggests the possibility of infection, an IG count of 3% is very likely related to an infection. Performed By: #### L [id number] #### LAB [address] [place] [address] Jack Mendoza M.D. [id number] Lymphocytes (Bld) [#/Vol] 0.34 10*3/uL Low 0.90-4.00 [facility] Comment on above: Performed By: #### L [id number] #### LAB [address] [address] Jack Mendoza M.D. [id number] Lymphocytes/100 WBC (Bld) 18.2 % [facility] Comment on above: Performed By: #### L [id number] #### LAB [address] [address] Jack Mendoza M.D. [id number] MCH (RBC) [Entitic mass] 20.7 pg Low 26.0-34.0 [facility] Comment on above: Performed By: #### L [id number] #### LAB [address] [address] Jack Mendoza M.D. [id number] MCV (RBC) [Entitic vol] 68.3 fL Low 80.0-100.0 [facility] Comment on above: Performed By: #### L [id number] #### LAB [address] [place] [address] Jack Mendoza M.D. [id number] MEAN CORPUSCULAR HEMOGLOBIN CONC 30.4 g/dL Low 31.0-37.0 [facility] Comment on above: Performed By: #### L [id number] #### LAB [address] [place] [address] Jack Mendoza M.D. [id number] Monocytes (Bld) [#/Vol] 0.09 10*3/uL Low 0.30-0.90 [facility] Comment on above: Performed By: #### L [id number] #### LAB [address] [place] [address] Jack Mendoza M.D. [id number] Monocytes/100 WBC (Bld) 4.8 % [facility] Comment on above: Performed By: #### L [id number] #### LAB [address] [place] [address] Jack Mendoza M.D. [id number] NEUTROPHILS ABSOLUTE COUNT 1.43 K/mcL Low 1.70-7.00 [facility] Comment on above: Performed By: #### L [id number] ####[facility] LAB [address] [address] Jack Mendoza M.D. [id number] Neutrophils/100 WBC (Bld) 76.5 % Normal [facility] Comment on above: Result Comment: Tiffany pheral smear reviewed manually Performed By: #### L [id number] ####[facility] LAB [address] [address] Jack Mendoza M.D. [id number] Platelets (Bld) [#/Vol] 95 10*3/uL Low 150-400 [facility] Comment on above: Performed By: #### L [id number] ####[facility] LAB [address] [address] Jack Mendoza M.D. [id number] RBC (Bld) [#/Vol] 5.11 10*6/uL Normal 4.50-5.90 [facility] Comment on above: Performed By: #### L [id number] ####[facility] LAB [address] [address] Jack Mendoza M.D. [id number] WBC (Bld) [#/Vol] 1.87 10*3/uL Low 4.50-11.00 [facility] Comment on above: Performed By: #### L [id number] ####[facility] LAB [address] [address] Jack Mendoza M.D. [id number] CONSULTon 07-01-2025 CONSULT Normal [facility] CONSULT Normal [facility] CRP, INFLAMMATIONon 07-01-20 25 CRP [Mass/Vol] 23.1 mg/L High 0.0-10.0 [facility] Comment on above: Performed By: #### 4 5334 ####[facility] LAB [address] [address] Jack Mendoza M.D. [id number] DRUGS OF ABUSE SCREEN, URINE on 07-01-2025 AMPHETAMINE SCREEN, URINE Not detected Normal None Detected [facility] Comment on above: Order Comment: Scree n results should be used for treatment purposes only.Specimen will be kept for 2 weeks, if the sample is adequate. Confirmation testing can be initiated by calling the lab within 2 weeks. Result Comment: Urin e Amphetamine Cutoff: < 1000 ng/mL = None Detected Performed By: #### 4 6965 #### LAB [address] [address] Jack Mendoza M.D. [id number] BARBITURATE SCREEN URINE Not detected Normal None Detected [facility] Comment on above: Order Comment: Scree n results should be used for treatment purposes only.Specimen will be kept for 2 weeks, if the sample is adequate. Confirmation testing can be initiated by calling the lab within 2 weeks. Result Comment: Urin e Barbiturates Cutoff: < 200 ng/mL = None Detected Performed By: #### 4 6965 ####[facility] LAB [address] [place] [address] Jack Mendoza M.D. [id number] BENZODIAZEPINE SCREEN, URINE Positive Abnormal None Detected [facility] Comment on above: Order Comment: Scree n results should be used for treatment purposes only.Specimen will be kept for 2 weeks, if the sample is adequate. Confirmation testing can be initiated by calling the lab within 2 weeks. Result Comment: Urin e Benzodiazepine Cutoff: < 200 ng/mL = None Detected Performed By: #### 4 6965 ####[facility] LAB [address] [address] Jack Mendoza M.D. [id number] BUPRENORPHINE, URINE Positive Abnormal None Detected [facility] Comment on above: Order Comment: Scree n results should be used for treatment purposes only.Specimen will be kept for 2 weeks, if the sample is adequate. Confirmation testing can be initiated by calling the lab within 2 weeks. Result Comment: Urin e Buprenorphine Cutoff: < 5 ng/mL = None Detected Performed By: #### 4 6965 ####[facility] LAB [address] [address] Jack Mendoza M.D. [id number] CANNABINOID SCREEN URINE Positive Abnormal None Detected [facility] Comment on above: Order Comment: Scree n results should be used for treatment purposes only.Specimen will be kept for 2 weeks, if the sample is adequate. Confirmation testing can be initiated by calling the lab within 2 weeks. Result Comment: Urin e Cannabinoids Cutoff: < 50 ng/mL = None Detected Performed By: #### 4 6965 #### LAB [address] [address] Jack Mendoza M.D. [id number] COCAINE, SCREEN URINE Positive Abnormal None Detected [facility] Comment on above: Order Comment: Scree n results should be used for treatment purposes only.Specimen will be kept for 2 weeks, if the sample is adequate. Confirmation testing can be initiated by calling the lab within 2 weeks. Result Comment: Urin e Cocaine Cutoff: < 300 ng/mL = None Detected Performed By: #### 4 6965 #### LAB [address] [place] [address] Jack Mendoza M.D. [id number] FENTANYL, URINE Not detected Normal None Detected [facility] Comment on above: Order Comment: Scree n results should be used for treatment purposes only.Specimen will be kept for 2 weeks, if the sample is adequate. Confirmation testing can be initiated by calling the lab within 2 weeks. Result Comment: Urin e Fentanyl Cutoff: < 1 ng/mL = None Detected Performed By: #### 4 6965 ####[facility] LAB [address] [address] Jack Mendoza M.D. [id number] METHADONE SCREEN, URINE Not detected Normal None Detected [facility] Comment on above: Order Comment: Scree n results should be used for treatment purposes only.Specimen will be kept for 2 weeks, if the sample is adequate. Confirmation testing can be initiated by calling the lab within 2 weeks. Result Comment: Urin e Methadone Cutoff: < 300 ng/mL = None Detected Performed By: #### 4 6965 ####[facility] LAB [address] [address] Jack Mendoza M.D. [id number] OPIATE SCREEN URINE Not detected Normal None Detected [facility] Comment on above: Order Comment: Scree n results should be used for treatment purposes only.Specimen will be kept for 2 weeks, if the sample is adequate. Confirmation testing can be initiated by calling the lab within 2 weeks. Result Comment: Urin e Opiates Cutoff: < 300 ng/mL = None Detected Performed By: #### 4 6965 ####[facility] LAB [address] [place], [place] [address] Jack Mendoza M.D. [id number] OXYCODONE SCREEN, URINE Positive Abnormal None Detected [facility] Comment on above: Order Comment: Scree n results should be used for treatment purposes only.Specimen will be kept for 2 weeks, if the sample is adequate. Confirmation testing can be initiated by calling the lab within 2 weeks. Result Comment: Urin e Oxycodone Cutoff: < 100 ng/mL = None Detected Performed By: #### 4 6965 #### LAB [address] [place], [place] [address] Jack Mendoza M.D. [id number] ECHOCARDIOGRAM LIMITEDon ECHOCARDIOGRAM LIMITED Normal [facility] HEPATITIS A ANTIBODY, IGMon 07-01-2025 HEPATITIS A IGM ANTIBODY Equivocal Abnormal Negative [facility] Comment on above: Order Comment: Test performed using [employer] SOHAM immunoassay system Result Comment: Hepa titis A IgM result is equivocal. It is recommended that a new specimen be drawn in two weeks and re-tested. Performed By: #### 4 5870 ####[facility] [address] [place] [address] Venancio Richardson M.D. [id number] HEPATITIS A ANTIBODY,TOTALon 07-01-2025 HEPATITIS A TOTAL ANTIBODY Positive Abnormal Negative [facility] Comment on above: Order Comment: Test performed using [employer] immunoassay system Performed By: #### 4 5869 ####[facility] [address] [place], [place] [id number] Venancio Richardson M.D. [id number] HEPATITIS B CORE ANTIBODY, T OTALon 07-01-2025 HEPATITIS B CORE TOTAL ANTIBODY Positive Abnormal Negative [facility] Comment on above: Order Comment: Test performed using [employer] immunoassay system Performed By: #### 4 5873 ####[facility] [address] [place] [address] Venancio Richardson M.D. [id number] HEPATITIS B SURFACE ANTIBODY on 07-01-2025 HEPATITIS B SURFACE ANTIBODY Positive Abnormal Negative [facility] Comment on above: Order Comment: Test performed using [employer] immunoassay system Performed By: #### 4 5876 ####[facility] [address] [place], [place] [id number] Venancio Richardson M.D. [id number] HEPATITIS B SURFACE ANTIGENo n 07-01-2025 HEPATITIS B SURFACE ANTIGEN Negative Normal Negative [facility] Comment on above: Order Comment: Test performed using [employer] immunoassay system Performed By: #### 4 4081 ####[facility] [address] [place], [place] [id number] Venancio Richardson M.D. [id number] HEPATITIS C ANTIBODYon 07-01 HEPATITIS C ANTIBODY Positive Abnormal Negative [facility] Comment on above: Order Comment: Test performed using [employer] immunoassay system Result Comment: A po sitive antibody test requires additional follow-up testing, Hepatitis C Virus Quantitation, to determine if a person is currently infected with Hepatitis C. Performed By: #### 4 5878 ####[facility] [address] [place], [place] [id number] Venancio Richardson M.D. [id number] MAGNESIUM LEVELon 07-01-2025 Magnesium [Mass/Vol] 1.9 mg/dL Normal 1.6-2.4 [facility] Comment on above: Performed By: #### 4 6109 #### LAB [address] [place], [place] [id number] Jack Mendoza M.D. [id number] OP NOTEon 07-01-2025 OP NOTE Normal [facility] Glucose [Mass/Vol] 153 mg/dL High 65- [facility] Glucose [Mass/Vol] 165 mg/dL High - [facility] Glucose [Mass/Vol] 146 mg/dL High 65- [facility] Glucose [Mass/Vol] 145 mg/dL High 65- [facility] RENAL FUNCTION PANELon 07-01 Albumin [Mass/Vol] 2.9 g/dL Low 3.2-5.2 [facility] Comment on above: Order Comment: [facility] has implemented the eGFR calculation approach that does not have a coefficient for race that conforms to the NKF-ASN Task Force Recommendations. Performed By: #### 4 6449 #### LAB [address] [place], [place] [address] Jack Mendoza M.D. [id number] Anion gap [Moles/Vol] 8 mmol/L Low 10-20 [facility] Comment on above: Order Comment: [facility] has implemented the eGFR calculation approach that does not have a coefficient for race that conforms to the NKF-ASN Task Force Recommendations. Performed By: #### 4 6449 #### LAB [address] [place], [place] [address] Jack Mendoza M.D. [id number] Calcium [Mass/Vol] 8.4 mg/dL Normal 8.4-10.2 [facility] Comment on above: Order Comment: [facility] has implemented the eGFR calculation approach that does not have a coefficient for race that conforms to the NKF-ASN Task Force Recommendations. Performed By: #### 4 6449 #### LAB [address] [address] Jack Mendoza M.D. [id number] Chloride [Moles/Vol] 95 mmol/L Low 98-108 [facility] Comment on above: Order Comment: [facility] has implemented the eGFR calculation approach that does not have a coefficient for race that conforms to the NKF-ASN Task Force Recommendations. Performed By: #### 4 6449 #### LAB [address] [address] Jack Mendoza M.D. [id number] Creatinine [Mass/Vol] 0.51 mg/dL Normal 0.50-1.30 [facility] Comment on above: Order Comment: [facility] has implemented the eGFR calculation approach that does not have a coefficient for race that conforms to the NKF-ASN Task Force Recommendations. Performed By: #### 4 6449 #### LAB [address] [place], [place] [address] Jack Mendoza M.D. [id number] EGFR 118 mL/min/1.73 m2 Normal >=60 [facility] Comment on above: Order Comment: [facility] has implemented the eGFR calculation approach that does not have a coefficient for race that conforms to the NKF-ASN Task Force Recommendations. Result Comment: Ashley mated GFR was calculated using the 2020 CKD-EPI creatinine equation. Performed By: #### 4 6449 #### LAB [address] [address] Jack Mendoza M.D. [id number] Glucose [Mass/Vol] 172 mg/dL High 65-99 [facility] Comment on above: Order Comment: [facility] has implemented the eGFR calculation approach that does not have a coefficient for race that conforms to the NKF-ASN Task Force Recommendations. Performed By: #### 4 6449 #### LAB [address] [address] Jack Mendoza M.D. [id number] HCO3 (Bld) [Moles/Vol] 36 mmol/L High 21-32 [facility] Comment on above: Order Comment: [facility] has implemented the eGFR calculation approach that does not have a coefficient for race that conforms to the NKF-ASN Task Force Recommendations. Performed By: #### 4 6449 #### LAB [address] [address] Jack Mendoza M.D. [id number] Phosphate [Mass/Vol] 2.6 mg/dL Low 2.7-4.5 [facility] Comment on above: Order Comment: [facility] has implemented the eGFR calculation approach that does not have a coefficient for race that conforms to the NKF-ASN Task Force Recommendations. Performed By: #### 4 6449 ####[facility] LAB [address] [address] Jack Mendoza M.D. [id number] Potassium [Moles/Vol] 4.5 mmol/L Normal 3.5-5.1 [facility] Comment on above: Order Comment: [facility] has implemented the eGFR calculation approach that does not have a coefficient for race that conforms to the NKF-ASN Task Force Recommendations. Performed By: #### 4 6449 #### LAB [address] [place], [place] [address] Jack Mendoza M.D. [id number] Sodium [Moles/Vol] 134 mmol/L Low 135-145 [facility] Comment on above: Order Comment: [facility] has implemented the eGFR calculation approach that does not have a coefficient for race that conforms to the NKF-ASN Task Force Recommendations. Performed By: #### 4 6449 #### LAB [address] [place], [place] [address] Jack Mendoza M.D. [id number] Urea nitrogen [Mass/Vol] 12 mg/dL Normal 8-25 [facility] Comment on above: Order Comment: [facility] has implemented the eGFR calculation approach that does not have a coefficient for race that conforms to the NKF-ASN Task Force Recommendations. Performed By: #### 4 6449 #### LAB [address] [place], [place] [address] Jack Mendoza M.D. [id number] Urea nitrogen/Creatinine [Mass ratio] 23.5 mg/mg High 10.0-20.0 [facility] Comment on above: Order Comment: [facility] has implemented the eGFR calculation approach that does not have a coefficient for race that conforms to the NKF-ASN Task Force Recommendations. Performed By: #### 4 6449 #### LAB [address] [place], [place] [address] Jack Mendoza M.D. [id number] SEDIMENTATION RATEon 025 SEDIMENTATION RATE, ERYTHROCYTE 56 mm/hr High 0-20 [facility] Comment on above: Performed By: #### 4 6477 #### LAB [address] [place], [place] [address] Jack Mendoza M.D. [id number] TISSUE EXAMon 07-01-2025 TISSUE EXAM Normal [facility] Comment on above: Performed By: #### 4 7015 #### LAB [address] [address] Jack Mendoza M.D. [id number] XR KNEE RIGHT 2 VIEWS (STAND NO)on 07-01-2025 XR KNEE RIGHT 2 VIEWS (STANDARD) Normal [facility] Comment on above: Order Comment: Injur y/Trauma or Illness?:Illness/OtherHow long have you had these symptoms (acute/chronic)?:AcuteReason for exam?:post op right kneeHistory of cancer?:uSurgeries, chemotherapy, or radiation?:uType of Exam?:InitialAdditional signs and symptoms?:. CBC WITH AUTO DIFFERENTIALon 06-30-2025 AUTO NRBC 0.0 % Normal [facility] Comment on above: Performed By: #### L [id number] #### LAB [address] [address] Jack Mendoza M.D. [id number] AUTO NRBC ABS COUNT 0.00 K/mcL Normal 0.00-0.00 [facility] Comment on above: Performed By: #### L [id number] #### LAB [address] [address] Jack Mendoza M.D. [id number] Erythrocyte distribution width (RBC) [Ratio] 18.8 % High 11.6-14.8 [facility] Comment on above: Performed By: #### L [id number] #### LAB [address] [address] Jack Mendoza M.D. [id number] Hematocrit (Bld) [Volume fraction] 39.1 % Low 41.0-53.0 [facility] Comment on above: Performed By: #### L [id number] #### LAB [address] [place] [address] Jack Mendoza M.D. [id number] Hemoglobin (Bld) [Mass/Vol] 11.6 g/dL Low 13.5-17.5 [facility] Comment on above: Performed By: #### L [id number] #### LAB [address] [place] [address] Jack Mendoza M.D. [id number] MCH (RBC) [Entitic mass] 20.7 pg Low 26.0-34.0 [facility] Comment on above: Performed By: #### L [id number] #### LAB [address] [address] Jack Mendoza M.D. [id number] MCV (RBC) [Entitic vol] 69.7 fL Low 80.0-100.0 [facility] Comment on above: Performed By: #### L [id number] ####[facility] [address] [address] Jack Mendoza M.D. [id number] MEAN CORPUSCULAR HEMOGLOBIN CONC 29.7 g/dL Low 31.0-37.0 [facility] Comment on above: Performed By: #### L [id number] #### LAB [address] [place] [address] Jack Mendoza M.D. [id number] Platelets (Bld) [#/Vol] 110 10*3/uL Low 150-400 [facility] Comment on above: Performed By: #### L [id number] #### LAB [address] [place] [address] Jack Mendoza M.D. [id number] RBC (Bld) [#/Vol] 5.61 10*6/uL Normal 4.50-5.90 [facility] Comment on above: Performed By: #### L [id number] #### LAB [address] [address] Jack Mendoza M.D. [id number] WBC (Bld) [#/Vol] 3.23 10*3/uL Low 4.50-11.00 [facility] Comment on above: Performed By: #### L [id number] ####[facility] [address] [address] Jack Mendoza M.D. [id number] H AND Mike 06-30-2025 H AND P Normal [facility] HEMOGLOBIN A1Con 06-30-2025 Glucose [Mass/Vol] 126 mg/dL High 74-114 [facility] Comment on above: Performed By: #### 4 8202 ####[facility] [address] [place] [address] Jack Mendoza M.D. [id number] HbA1c (Bld) [Mass fraction] 6.0 % High 4.2-5.6 [facility] Comment on above: Performed By: #### 4 8202 #### LAB [address] [place] [address] Jack Mendoza M.D. [id number] HIV 1/2 SCREEN (4TH GENERATI ON)on 06-30-2025 HIV 1-2 SCREEN Negative Normal Negative [facility] Comment on above: Order Comment: This assay screens for the presence of HIV-1, HIV-2 antibodies and for the presence of HIV-1 antigen.Test performed using [employer] immunoassay system Performed By: #### 4 5928 ####[facility] [address] [place] [address] Venancio Richardson M.D. [id number] MAGNESIUM LEVELon 06-30-2025 Magnesium [Mass/Vol] 1.7 mg/dL Normal 1.6-2.4 [facility] Comment on above: Performed By: #### 4 6109 #### LAB [address] [place] [address] Jack Mendoza M.D. [id number] MANUAL DIFFERENTIALon 2024 BASOPHILS - ABS (DIFF) 0.00 K/mcL Normal 0.00-0.30 [facility] Comment on above: Performed By: #### 4 5456 ####[facility] [address] [place] [address] Jack Mendoza M.D. [id number] BASOPHILS - REL (DIFF) 0.0 % [facility] Comment on above: Performed By: #### 4 5456 #### LAB [address] [address] Jack Mendoza M.D. [id number] EOSINOPHILS - ABS (DIFF) 0.00 K/mcL Normal 0.00-0.50 [facility] Comment on above: Performed By: #### 4 5460 #### LAB [address] [address] Jack Mendoza M.D. [id number] EOSINOPHILS - REL (DIFF) 0.0 % Normal [facility] Comment on above: Performed By: #### 4 5405 #### LAB [address] [address] Jack Mendoza M.D. [id number] LYMPHOCYTE ATYPICAL - REL (DIFF) 5.0 % Normal [facility] Comment on above: Performed By: #### 4 5427 #### LAB [address] [address] Jack Mendoza M.D. [id number] LYMPHOCYTES - ABS (DIFF) 0.74 K/mcL Low 0.90-4.00 [facility] Comment on above: Performed By: #### 4 5408 #### LAB [address] [address] Jack Mendoza M.D. [id number] LYMPHOCYTES - REL (DIFF) 18.0 % Normal [facility] Comment on above: Performed By: #### 4 2763 #### LAB [address] [address] Jack Mendoza M.D. [id number] MONOCYTES - ABS (DIFF) 0.13 K/mcL Low 0.30-0.90 [facility] Comment on above: Performed By: #### 4 2253 #### LAB [address] [address] Jack Mendoza M.D. [id number] MONOCYTES - REL (DIFF) 4.0 % [facility] Comment on above: Performed By: #### 4 0602 #### LAB [address] [address] Jack Mendoza M.D. [id number] NEUTROPHILS - ABS (DIFF) 2.36 K/mcL Normal 1.70-7.00 [facility] Comment on above: Performed By: #### 4 5456 ####[facility] LAB [address] [address] Jack Mendoza M.D. [id number] NEUTROPHILS - REL (DIFF) 73.0 % Normal [facility] Comment on above: Performed By: #### 4 5456 ####[facility] LAB [address] [address] Jack Mendoza M.D. [id number] MORPHOLOGYon 06-30-2025 OVAL SCAN Moderate Normal [facility] Comment on above: Performed By: #### L AB295 ####[facility] LAB [address] [address] Jack Mendoza M.D. [id number] PLATELET ESTIMATE Decreased Abnormal Normal [facility] Comment on above: Performed By: #### L AB295 ####[facility] LAB [address] [address] Jack Mendoza M.D. [id number] RBC MORPH SCAN See Comment Normal [facility] Comment on above: Result Comment: RBC Indices confirmed with manual peripheral smear review. Performed By: #### L AB295 #### LAB [address] [address] Jack Mendoza M.D. [id number] TARGET CELL SCAN Moderate Normal [facility] Comment on above: Performed By: #### L AB295 #### LAB [address] [address] Jack Mendoza M.D. [id number] NT PRO BNPon 06-30-2025 Natriuretic peptide B (Bld) [Mass/Vol] 55 pg/mL Normal 0-300 [facility] Comment on above: Order Comment: Pride Study Cut-offsRule In:< /= 50 Years >450 pg/mL51 Years - 75 Years >900 pg/mL76 Years - 99 Years >1800 pg/mLRule Out:All patients <300 pg/mL Performed By: #### 4 7395 #### LAB [address] [address] Jack Mendoza M.D. [id number] POC GLUCOSE - [facility] 025 Glucose [Mass/Vol] 141 mg/dL High 65-99 [facility] RENAL FUNCTION PANELon 06-30 Albumin [Mass/Vol] 3.2 g/dL Normal 3.2-5.2 [facility] Comment on above: Order Comment: [facility] has implemented the eGFR calculation approach that does not have a coefficient for race that conforms to the NKF-ASN Task Force Recommendations. Performed By: #### 4 6449 #### LAB [address] [address] Jack Mendoza M.D. [id number] Anion gap [Moles/Vol] 11 mmol/L Normal 10-20 [facility] Comment on above: Order Comment: [facility] has implemented the eGFR calculation approach that does not have a coefficient for race that conforms to the NKF-ASN Task Force Recommendations. Performed By: #### 4 6449 #### LAB [address] [address] Jack Mendoza M.D. [id number] Calcium [Mass/Vol] 8.5 mg/dL Normal 8.4-10.2 [facility] Comment on above: Order Comment: [facility] has implemented the eGFR calculation approach that does not have a coefficient for race that conforms to the NKF-ASN Task Force Recommendations. Performed By: #### 4 6449 #### LAB [address] [address] Jack Mendoza M.D. [id number] Chloride [Moles/Vol] 95 mmol/L Low 98-108 [facility] Comment on above: Order Comment: [facility] has implemented the eGFR calculation approach that does not have a coefficient for race that conforms to the NKF-ASN Task Force Recommendations. Performed By: #### 4 6449 #### LAB [address] [address] Jack Mendoza M.D. [id number] Creatinine [Mass/Vol] 0.51 mg/dL Normal 0.50-1.30 [facility] Comment on above: Order Comment: [facility] has implemented the eGFR calculation approach that does not have a coefficient for race that conforms to the NKF-ASN Task Force Recommendations. Performed By: #### 4 6449 #### LAB [address] [place], [place] [address] Jack Mendoza M.D. [id number] EGFR 118 mL/min/1.73 m2 Normal >=60 [facility] Comment on above: Order Comment: [facility] has implemented the eGFR calculation approach that does not have a coefficient for race that conforms to the NKF-ASN Task Force Recommendations. Result Comment: Ahsley mated GFR was calculated using the 2020 CKD-EPI creatinine equation. Performed By: #### 4 6449 #### LAB [address] [place], [place] [address] Jack Mendoza M.D. [id number] Glucose [Mass/Vol] 122 mg/dL High 65-99 [facility] Comment on above: Order Comment: [facility] has implemented the eGFR calculation approach that does not have a coefficient for race that conforms to the NKF-ASN Task Force Recommendations. Performed By: #### 4 6449 #### LAB [address] [place], [place] [address] Jack Mendoza M.D. [id number] HCO3 (Bld) [Moles/Vol] 31 mmol/L Normal 21-32 [facility] Comment on above: Order Comment: [facility] has implemented the eGFR calculation approach that does not have a coefficient for race that conforms to the NKF-ASN Task Force Recommendations. Performed By: #### 4 6449 #### LAB [address] [place], [place] [address] Jack Mendoza M.D. [id number] Phosphate [Mass/Vol] 3.1 mg/dL Normal 2.7-4.5 [facility] Comment on above: Order Comment: [facility] has implemented the eGFR calculation approach that does not have a coefficient for race that conforms to the NKF-ASN Task Force Recommendations. Performed By: #### 4 6449 #### LAB [address] [address] Jack Mendoza M.D. [id number] Potassium [Moles/Vol] 5.2 mmol/L High 3.5-5.1 [facility] Comment on above: Order Comment: [facility] has implemented the eGFR calculation approach that does not have a coefficient for race that conforms to the NKF-ASN Task Force Recommendations. Result Comment: Slig htly Hemolyzed Performed By: #### 4 6449 #### LAB [address] [address] Jack Mendoza M.D. [id number] Sodium [Moles/Vol] 132 mmol/L Low 135-145 [facility] Comment on above: Order Comment: [facility] has implemented the eGFR calculation approach that does not have a coefficient for race that conforms to the NKF-ASN Task Force Recommendations. Performed By: #### 4 6449 #### LAB [address] [address] Jack Mendoza M.D. [id number] Urea nitrogen [Mass/Vol] 12 mg/dL Normal 8-25 [facility] Comment on above: Order Comment: [facility] has implemented the eGFR calculation approach that does not have a coefficient for race that conforms to the NKF-ASN Task Force Recommendations. Performed By: #### 4 6449 #### LAB [address] [address] Jack Mendoza M.D. [id number] Urea nitrogen/Creatinine [Mass ratio] 23.5 mg/mg High 10.0-20.0 [facility] Comment on above: Order Comment: [facility] has implemented the eGFR calculation approach that does not have a coefficient for race that conforms to the NKF-ASN Task Force Recommendations. Performed By: #### 4 6449 #### LAB [address] [address] Jack Mendoza M.D. [id number] XR CHEST PA/APon 06-30-2025 XR CHEST PA/AP Normal [facility] Comment on above: Order Comment: Injur y/Trauma or Illness?:Illness/OtherHow long have you had these symptoms (acute/chronic)?:AcuteReason for exam?:SOB, concern for CHF exacerbationHistory of cancer?:uSurgeries, chemotherapy, or radiation?:uType of Exam?:InitialAdditional signs and symptoms?:. BASIC METABOLIC PANELon 04-23 Anion gap [Moles/Vol] 10 mmol/L Normal 10-20 [facility] Comment on above: Order Comment: [facility] has implemented the eGFR calculation approach that does not have a coefficient for race that conforms to the NKF-ASN Task Force Recommendations. Performed By: #### 4 6124 #### LAB [address] [address] Jack Mendoza M.D. [id number] Calcium [Mass/Vol] 8.5 mg/dL Normal 8.4-10.2 [facility] Comment on above: Order Comment: [facility] has implemented the eGFR calculation approach that does not have a coefficient for race that conforms to the NKF-ASN Task Force Recommendations. Performed By: #### 4 6124 #### LAB [address] [address] Jack Mendoza M.D. [id number] Chloride [Moles/Vol] 99 mmol/L Normal 98-108 [facility] Comment on above: Order Comment: [facility] has implemented the eGFR calculation approach that does not have a coefficient for race that conforms to the NKF-ASN Task Force Recommendations. Performed By: #### 4 6124 #### LAB [address] [address] Jack Mendoza M.D. [id number] Creatinine [Mass/Vol] 0.55 mg/dL Normal 0.50-1.30 [facility] Comment on above: Order Comment: [facility] has implemented the eGFR calculation approach that does not have a coefficient for race that conforms to the NKF-ASN Task Force Recommendations. Performed By: #### 4 6124 #### LAB [address] [address] Jack Mendoza M.D. [id number] EGFR 115 mL/min/1.73 m2 Normal >=60 [facility] Comment on above: Order Comment: [facility] has implemented the eGFR calculation approach that does not have a coefficient for race that conforms to the NKF-ASN Task Force Recommendations. Result Comment: Ashley mated GFR was calculated using the 2020 CKD-EPI creatinine equation. Performed By: #### 4 6124 #### LAB [address] [address] Jack Mendoza M.D. [id number] Glucose [Mass/Vol] 115 mg/dL High 65-99 [facility] Comment on above: Order Comment: [facility] has implemented the eGFR calculation approach that does not have a coefficient for race that conforms to the NKF-ASN Task Force Recommendations. Performed By: #### 4 6124 #### LAB [address] [address] Jack Mendoza M.D. [id number] HCO3 (Bld) [Moles/Vol] 29 mmol/L Normal 21-32 [facility] Comment on above: Order Comment: [facility] has implemented the eGFR calculation approach that does not have a coefficient for race that conforms to the NKF-ASN Task Force Recommendations. Performed By: #### 4 6124 #### LAB [address] [address] Jack Mendoza M.D. [id number] Potassium [Moles/Vol] 4.4 mmol/L Normal 3.5-5.1 [facility] Comment on above: Order Comment: [facility] has implemented the eGFR calculation approach that does not have a coefficient for race that conforms to the NKF-ASN Task Force Recommendations. Performed By: #### 4 6124 #### LAB [address] [address] Jack Mendoza M.D. [id number] Sodium [Moles/Vol] 134 mmol/L Low 135-145 [facility] Comment on above: Order Comment: [facility] has implemented the eGFR calculation approach that does not have a coefficient for race that conforms to the NKF-ASN Task Force Recommendations. Performed By: #### 4 6124 #### LAB [address] [place], [place] [address] Jack Mendoza M.D. [id number] Urea nitrogen [Mass/Vol] 12 mg/dL Normal 8- [facility] Comment on above: Order Comment: [facility] has implemented the eGFR calculation approach that does not have a coefficient for race that conforms to the NKF-ASN Task Force Recommendations. Performed By: #### 4 6124 #### LAB [address] [place], [place] [address] Jack Mendoza M.D. [id number] Urea nitrogen/Creatinine [Mass ratio] 21.8 mg/mg High 10.0-20.0 [facility] Comment on above: Order Comment: [facility] has implemented the eGFR calculation approach that does not have a coefficient for race that conforms to the NKF-ASN Task Force Recommendations. Performed By: #### 4 6124 #### LAB [address] [id number] Jack Mendoza M.D. [id number] Basic metabolic 2000 panelon 05-16-2025 Anion gap [Moles/Vol] 10 mmol/L 10 - 20 mmol/L [facility] Calcium [Mass/Vol] 8.5 mg/dL 8.4 - 10. 2 mg/dL [facility] Chloride [Moles/Vol] 99 mmol/L 98 - 10 8 mmol/L [facility] Creatinine [Mass/Vol] 0.55 mg/dL 0.50 - 1.30 mg/dL [facility] GFR/1.73 sq M.predicted CKD-EPI (S/P/Bld) [Vol rate/Area] 115 - PINF [facility] Comment on above: Estimated GFR was ca lculated using the 2020 CKD-EPI creatinine equation. Glucose [Mass/Vol] 115 mg/dL High 65 - 99 mg/dL [facility] HCO3 [Moles/Vol] 29 mmol/L 21 - 32 mmol/L [facility] Interpretation and review of laboratory results Abnormal [facility] Potassium [Moles/Vol] 4.4 mmol/L 3.5 - 5.1 mmol/L [facility] Sodium [Moles/Vol] 134 mmol/L Low 135 - 145 mmol/L [facility] Urea nitrogen [Mass/Vol] 12 mg/dL 8 - 25 mg/dL [facility] Urea nitrogen/Creatinine [Mass ratio] 21.8 mg/mg High 10.0 - 20.0 [facility] has implemented the eGFR calculation approach that does not have a coefficient for race that conforms to the NKF-ASN Task Force Recommendations. [facility] CBCon 05-16-2025 AUTO NRBC 0.0 % Normal [facility] Comment on above: Performed By: #### 4 [id number] #### LAB [address] [address] Jack Mendoza M.D. [id number] AUTO NRBC ABS COUNT 0.00 K/mcL Normal 0.00-0.00 [facility] Comment on above: Performed By: #### 4 5218 ####[facility] LAB [address] [address] Jack Mendoza M.D. [id number] Erythrocyte distribution width (RBC) [Ratio] 15.9 % High 11.6-14.8 [facility] Comment on above: Performed By: #### 4 5218 ####J[facility] LAB [address] [address] Jack Mendoza M.D. [id number] Hematocrit (Bld) [Volume fraction] 37.1 % Low 41.0-53.0 [facility] Comment on above: Performed By: #### 4 5218 #### LAB [address] [address] Jack Mendoza M.D. [id number] Hemoglobin (Bld) [Mass/Vol] 11.3 g/dL Low 13.5-17.5 [facility] Comment on above: Performed By: #### 4 5218 #### LAB [address] [address] Jack Mendoza M.D. [id number] MCH (RBC) [Entitic mass] 21.1 pg Low 26.0-34.0 [facility] Comment on above: Performed By: #### 4 5218 #### LAB [address] [address] Jack Mendoza M.D. [id number] MCV (RBC) [Entitic vol] 69.2 fL Low 80.0-100.0 [facility] Comment on above: Performed By: #### 4 5218 #### LAB [address] [address] Jack Mendoza M.D. [id number] MEAN CORPUSCULAR HEMOGLOBIN CONC 30.5 g/dL Low 31.0-37.0 [facility] Comment on above: Performed By: #### 4 5218 #### LAB [address] [address] Jack Mendoza M.D. [id number] Platelets (Bld) [#/Vol] 120 10*3/uL Low 150-400 [facility] Comment on above: Performed By: #### 4 5218 #### LAB [address] [address] Jack Mendoza M.D. [id number] RBC (Bld) [#/Vol] 5.36 10*6/uL Normal 4.50-5.90 [facility] Comment on above: Performed By: #### 4 5218 #### LAB [address] [address] Jack Mendoza M.D. [id number] WBC (Bld) [#/Vol] 3.11 10*3/uL Low 4.50-11.00 [facility] Comment on above: Performed By: #### 4 5218 #### LAB [address] [address] Jack Mendoza M.D. [id number] CBC panel Auto (Bld)on 05-16 Erythrocyte distribution width (RBC) [Entitic vol] 15.9 % High 11.6 - 14.8 % [facility] Hematocrit (Bld) [Volume fraction] 37.1 % Low 41.0 - 53.0 % [facility] Hemoglobin (Bld) [Mass/Vol] 11.3 g/dL Low 13.5 - 17.5 g/dL [facility] Interpretation and review of laboratory results Abnormal [facility] MCH (RBC) [Entitic mass] 21.1 pg Low 26.0 - 34.0 pg [facility] MCHC (RBC) [Mass/Vol] 30.5 g/dL Low 31.0 - 37.0 g/dL [facility] MCV (RBC) [Entitic vol] 69.2 fL Low 80.0 - 100.0 fL [facility] Nucleated RBC (Bld) [#/Vol] 0 10*3/uL [facility] Nucleated RBC/100 WBC (Bld) [Ratio] 0 % [facility] Platelets (Bld) [#/Vol] 120 10*3/uL Low [facility] RBC (Bld) [#/Vol] 5.36 10*6/uL [facility] WBC (Bld) [#/Vol] 3.11 10*3/uL Low [facility] Disch [place] 05-16-2025 Disch [facility] Normal [facility] Glucose (Bld) [Mass/Vol]on 0 05-16-2025 Glucose [Mass/Vol] 99 mg/dL 65 - 99 mg/dL [facility] Interpretation and review of laboratory results Normal [facility] Glucose [Mass/Vol] 126 mg/dL High 65 - 99 mg/dL [facility] Interpretation and review of laboratory results Abnormal [facility] MAGNESIUM LEVELon 05-16-2025 Magnesium [Mass/Vol] 1.9 mg/dL Normal 1.6-2.4 [facility] Comment on above: Performed By: #### 4 6109 ####[facility] LAB [address] [place], [place] [address] Jack Mendoza M.D. [id number] Magnesium Levelon 05-16-2025 Magnesium [Mass/Vol] 1.9 mg/dL 1.6 - 2 .4 mg/dL [facility] Magnesium [Mass/Vol]on 05-16 Interpretation and review of laboratory results Normal [facility] No Panel Informationon 05-16 [facility] POC GLUCOSE - [place] 025 Glucose [Mass/Vol] 99 mg/dL Normal 65-99 [facility] Glucose [Mass/Vol] 126 mg/dL High 65-99 [facility] BASIC METABOLIC PANELon 04-23 Anion gap [Moles/Vol] 11 mmol/L Normal 10-20 [facility] Comment on above: Order Comment: [facility] has implemented the eGFR calculation approach that does not have a coefficient for race that conforms to the NKF-ASN Task Force Recommendations. Performed By: #### 4 6124 #### LAB [address] [place], [place] [address] Jack Mendoza M.D. [id number] Calcium [Mass/Vol] 8.2 mg/dL Low 8.4-10.2 [facility] Comment on above: Order Comment: [facility] has implemented the eGFR calculation approach that does not have a coefficient for race that conforms to the NKF-ASN Task Force Recommendations. Performed By: #### 4 6109 #### LAB [address] [id number] Jack Mendoza M.D. [id number] Chloride [Moles/Vol] 100 mmol/L Normal 98-108 [facility] Comment on above: Order Comment: [facility] has implemented the eGFR calculation approach that does not have a coefficient for race that conforms to the NKF-ASN Task Force Recommendations. Performed By: #### 4 6124 #### LAB [address] [address] Jack Mendoza M.D. [id number] Creatinine [Mass/Vol] 0.52 mg/dL Normal 0.50-1.30 [facility] Comment on above: Order Comment: [facility] has implemented the eGFR calculation approach that does not have a coefficient for race that conforms to the NKF-ASN Task Force Recommendations. Performed By: #### 4 6180 #### LAB [address] [place], [place] [address] Jack Mendoza M.D. [id number] EGFR 117 mL/min/1.73 m2 Normal >=60 [facility] Comment on above: Order Comment: [facility] has implemented the eGFR calculation approach that does not have a coefficient for race that conforms to the NKF-ASN Task Force Recommendations. Result Comment: Ashley mated GFR was calculated using the 2020 CKD-EPI creatinine equation. Performed By: #### 4 6128 #### LAB [address] [address] Jack Mendoza M.D. [id number] Glucose [Mass/Vol] 143 mg/dL High 65-99 [facility] Comment on above: Order Comment: [facility] has implemented the eGFR calculation approach that does not have a coefficient for race that conforms to the NKF-ASN Task Force Recommendations. Performed By: #### 4 6124 #### LAB [address] [address] Jack Mendoza M.D. [id number] HCO3 (Bld) [Moles/Vol] 29 mmol/L Normal 21-32 [facility] Comment on above: Order Comment: [facility] has implemented the eGFR calculation approach that does not have a coefficient for race that conforms to the NKF-ASN Task Force Recommendations. Performed By: #### 4 6124 #### LAB [address] [address] Jack Mendoza M.D. [id number] Potassium [Moles/Vol] 4.3 mmol/L Normal 3.5-5.1 [facility] Comment on above: Order Comment: [facility] has implemented the eGFR calculation approach that does not have a coefficient for race that conforms to the NKF-ASN Task Force Recommendations. Performed By: #### 4 6124 #### LAB [address] [address] Jack Mendoza M.D. [id number] Sodium [Moles/Vol] 136 mmol/L Normal 135-145 [facility] Comment on above: Order Comment: [facility] has implemented the eGFR calculation approach that does not have a coefficient for race that conforms to the NKF-ASN Task Force Recommendations. Performed By: #### 4 6124 ####[facility] LAB [address] [address] Jack Mendoza M.D. [id number] Urea nitrogen [Mass/Vol] 12 mg/dL Normal 8-25 [facility] Comment on above: Order Comment: [facility] has implemented the eGFR calculation approach that does not have a coefficient for race that conforms to the NKF-ASN Task Force Recommendations. Performed By: #### 4 6124 #### LAB [address] [place], [place] [address] Jack Mendoza M.D. [id number] Urea nitrogen/Creatinine [Mass ratio] 23.1 mg/mg High 10.0-20.0 [facility] Comment on above: Order Comment: [facility] has implemented the eGFR calculation approach that does not have a coefficient for race that conforms to the NKF-ASN Task Force Recommendations. Performed By: #### 4 6124 #### LAB [address] [place], [place] [address] Jack Mendoza M.D. [id number] Basic metabolic 2000 panelon 05-15-2025 Anion gap [Moles/Vol] 11 mmol/L 10 - 20 mmol/L [facility] Calcium [Mass/Vol] 8.2 mg/dL Low 8.4 - 10. 2 mg/dL [facility] Chloride [Moles/Vol] 100 mmol/L 98 - 10 8 mmol/L [facility] Creatinine [Mass/Vol] 0.52 mg/dL 0.50 - 1.30 mg/dL [facility] GFR/1.73 sq M.predicted CKD-EPI (S/P/Bld) [Vol rate/Area] 117 - PINF [facility] Comment on above: Estimated GFR was ca lculated using the 2020 CKD-EPI creatinine equation. Glucose [Mass/Vol] 143 mg/dL High 65 - 99 mg/dL [facility] HCO3 [Moles/Vol] 29 mmol/L 21 - 32 mmol/L [facility] Interpretation and review of laboratory results Abnormal [facility] Potassium [Moles/Vol] 4.3 mmol/L 3.5 - 5.1 mmol/L [facility] [facility] S[facility] [Moles/Vol] 136 mmol/L 135 - 145 mmol/L [facility] Urea nitrogen [Mass/Vol] 12 mg/dL 8 - 25 mg/dL [facility] Urea nitrogen/Creatinine [Mass ratio] 23.1 mg/mg High 10.0 - 20.0 [facility] has implemented the eGFR calculation approach that does not have a coefficient for race that conforms to the NKF-ASN Task Force Recommendations. [facility] CBCon 05-15-2025 AUTO NRBC 0.0 % Normal [facility] Comment on above: Performed By: #### 4 [id number] #### LAB [address] [address] Jack Mendoza M.D. [id number] AUTO NRBC ABS COUNT 0.00 K/mcL Normal 0.00-0.00 [facility] Comment on above: Performed By: #### 4 [id number] #### LAB [address] [address] Jack Mendoza M.D. [id number] Erythrocyte distribution width (RBC) [Ratio] 15.8 % High 11.6-14.8 [facility] Comment on above: Performed By: #### 4 [id number] #### LAB [address] [address] Jack Mendoza M.D. [id number] Hematocrit (Bld) [Volume fraction] 34.7 % Low 41.0-53.0 [facility] Comment on above: Performed By: #### 4 [id number] #### LAB [address] [address] Jack Mendoza M.D. [id number] Hemoglobin (Bld) [Mass/Vol] 10.4 g/dL Low 13.5-17.5 [facility] Comment on above: Performed By: #### 4 [id number] #### LAB [address] [address] Jack Menodza M.D. [id number] MCH (RBC) [Entitic mass] 20.8 pg Low 26.0-34.0 [facility] Comment on above: Performed By: #### 4 [id number] #### LAB [address] [address] Jack Mendoza M.D. [id number] MCV (RBC) [Entitic vol] 69.5 fL Low 80.0-100.0 [facility] Comment on above: Performed By: #### 4 [id number] #### LAB [address] [address] Jack Mendoza M.D. [id number] MEAN CORPUSCULAR HEMOGLOBIN CONC 30.0 g/dL Low 31.0-37.0 [facility] Comment on above: Performed By: #### 4 [id number] #### LAB [address] [address] Jack Mendoza M.D. [id number] Platelet mean volume (Bld) [Entitic vol] 8.8 fL Low 9.4-12.4 [facility] Comment on above: Performed By: #### 4 [id number] #### LAB [address] [address] Jack Mendoza M.D. [id number] Platelets (Bld) [#/Vol] 113 10*3/uL Low 150-400 [facility] Comment on above: Performed By: #### 4 [id number] #### LAB [address] [address] Jack Mendoza M.D. [id number] RBC (Bld) [#/Vol] 4.99 10*6/uL Normal 4.50-5.90 [facility] Comment on above: Performed By: #### 4 [id number] #### LAB [address] [address] Jack Mendoza M.D. [id number] WBC (Bld) [#/Vol] 2.55 10*3/uL Low 4.50-11.00 [facility] Comment on above: Performed By: #### 4 [id number] #### LAB [address] [address] Jack Mendoza M.D. [id number] CBC panel Auto (Bld)on 05-15 Erythrocyte distribution width (RBC) [Entitic vol] 15.8 % High 11.6 - 14.8 % [facility] Hematocrit (Bld) [Volume fraction] 34.7 % Low 41.0 - 53.0 % [facility] Hemoglobin (Bld) [Mass/Vol] 10.4 g/dL Low 13.5 - 17.5 g/dL [facility] Interpretation and review of laboratory results Abnormal [facility] MCH (RBC) [Entitic mass] 20.8 pg Low 26.0 - 34.0 pg [facility] MCHC (RBC) [Mass/Vol] 30 g/dL Low 31.0 - 37.0 g/dL [facility] MCV (RBC) [Entitic vol] 69.5 fL Low 80.0 - 100.0 fL [facility] Nucleated RBC (Bld) [#/Vol] 0 10*3/uL [facility] Nucleated RBC/100 WBC (Bld) [Ratio] 0 % [facility] Platelet mean volume (Bld) [Entitic vol] 8.8 fL Low 9.4 - 12.4 fL [facility] Platelets (Bld) [#/Vol] 113 10*3/uL Low [facility] RBC (Bld) [#/Vol] 4.99 10*6/uL [facility] WBC (Bld) [#/Vol] 2.55 10*3/uL Low [facility] Glucose (Bld) [Mass/Vol]on 0 05-15-2025 Glucose [Mass/Vol] 186 mg/dL High 65 - 99 mg/dL [facility] Interpretation and review of laboratory results Abnormal [facility] Glucose [Mass/Vol] 135 mg/dL High 65 - 99 mg/dL [facility] Interpretation and review of laboratory results Abnormal [facility] Glucose [Mass/Vol] 124 mg/dL High 65 - 99 mg/dL [facility] Interpretation and review of laboratory results Abnormal [facility] Glucose [Mass/Vol] 127 mg/dL High 65 - 99 mg/dL [facility] Interpretation and review of laboratory results Abnormal [facility] MAGNESIUM LEVELon 05-15-2025 Magnesium [Mass/Vol] 1.9 mg/dL Normal 1.6-2.4 [facility] Comment on above: Performed By: #### 4 6109 #### LAB [address] [place], [place] [address] Jack Mendoza M.D. [id number] Magnesium Levelon 05-15-2025 Magnesium [Mass/Vol] 1.9 mg/dL 1.6 - 2 .4 mg/dL [facility] Magnesium [Mass/Vol]on 05-15 Interpretation and review of laboratory results Normal [facility] No Panel Informationon 05-15 [facility] Glucose [Mass/Vol] 186 mg/dL High 65-99 [facility] Glucose [Mass/Vol] 135 mg/dL High 65-99 [facility] Glucose [Mass/Vol] 124 mg/dL High 65-99 [facility] Glucose [Mass/Vol] 127 mg/dL High 65-99 [facility] VANCOMYCIN LEVEL, RANDOMon 0 - VANCOMYCIN RANDOM 23.6 mcg/mL Normal [facility] Comment on above: Order Comment: As of 05/2022 vancomycin dosing for [facility] inpatients will be done by Bayesian dosing software rather than off traditional trough values. Please contact the site specific inpatient pharmacy before making dose changes off of trough values alone for admitted patients.No established reference range. Performed By: #### 4 6651 #### LAB [address] [place], [place] [address] Jack Mendoza M.D. [id number] Vancomycin Level, Randomon 0 05-15-2025 Vancomycin [Mass/Vol] 23.6 mcg/mL [facility] Vancomycin [Mass/Vol]on 04-23 As of 05/2022 vancom ycin dosing for [facility] inpatients will be done by Bayesian dosing software rather than off traditional trough values. Please contact the site specific inpatient pharmacy before making dose changes off of trough values alone for admitted patients. No established reference range. [facility] BASIC METABOLIC PANELon 04-23 Anion gap [Moles/Vol] 13 mmol/L Normal - [facility] Comment on above: Order Comment: [facility] has implemented the eGFR calculation approach that does not have a coefficient for race that conforms to the NKF-ASN Task Force Recommendations. Performed By: #### 4 6124 #### LAB [address] [place], [place] [address] Jack Mendoza M.D. [id number] Calcium [Mass/Vol] 8.1 mg/dL Low 8.4-10.2 [facility] Comment on above: Order Comment: [facility] has implemented the eGFR calculation approach that does not have a coefficient for race that conforms to the NKF-ASN Task Force Recommendations. Performed By: #### 4 6118 #### LAB [address] [address] Jack Mendoza M.D. [id number] Chloride [Moles/Vol] 99 mmol/L Normal 98-108 [facility] Comment on above: Order Comment: [facility] has implemented the eGFR calculation approach that does not have a coefficient for race that conforms to the NKF-ASN Task Force Recommendations. Performed By: #### 4 6124 #### LAB [address] [address] Jack Mendoza M.D. [id number] Creatinine [Mass/Vol] 0.57 mg/dL Normal 0.50-1.30 [facility] Comment on above: Order Comment: [facility] has implemented the eGFR calculation approach that does not have a coefficient for race that conforms to the NKF-ASN Task Force Recommendations. Performed By: #### 4 6124 #### LAB [address] [address] Jack Mendoza M.D. [id number] EGFR 114 mL/min/1.73 m2 Normal >=60 [facility] Comment on above: Order Comment: [facility] has implemented the eGFR calculation approach that does not have a coefficient for race that conforms to the NKF-ASN Task Force Recommendations. Result Comment: Ashley mated GFR was calculated using the 2020 CKD-EPI creatinine equation. Performed By: #### 4 [id number] #### LAB [address] [address] Jack Mendoza M.D. [id number] Glucose [Mass/Vol] 170 mg/dL High 65-99 [facility] Comment on above: Order Comment: [facility] has implemented the eGFR calculation approach that does not have a coefficient for race that conforms to the NKF-ASN Task Force Recommendations. Performed By: #### 4 6124 #### LAB [address] [address] Jack Mendoza M.D. [id number] HCO3 (Bld) [Moles/Vol] 26 mmol/L Normal 21-32 [facility] Comment on above: Order Comment: [facility] has implemented the eGFR calculation approach that does not have a coefficient for race that conforms to the NKF-ASN Task Force Recommendations. Performed By: #### 4 6124 #### LAB [address] [address] Jack Mendoza M.D. [id number] Potassium [Moles/Vol] 4.1 mmol/L Normal 3.5-5.1 [facility] Comment on above: Order Comment: [facility] has implemented the eGFR calculation approach that does not have a coefficient for race that conforms to the NKF-ASN Task Force Recommendations. Performed By: #### 4 6124 #### LAB [address] [address] Jack Mendoza M.D. [id number] Sodium [Moles/Vol] 134 mmol/L Low 135-145 [facility] Comment on above: Order Comment: [facility] has implemented the eGFR calculation approach that does not have a coefficient for race that conforms to the NKF-ASN Task Force Recommendations. Performed By: #### 4 6124 #### LAB [address] [address] Jack Mendoza M.D. [id number] Urea nitrogen [Mass/Vol] 13 mg/dL Normal 8-25 [facility] Comment on above: Order Comment: [facility] has implemented the eGFR calculation approach that does not have a coefficient for race that conforms to the NKF-ASN Task Force Recommendations. Performed By: #### 4 6124 #### LAB [address] [address] Jack Mendoza M.D. [id number] Urea nitrogen/Creatinine [Mass ratio] 22.8 mg/mg High 10.0-20.0 [facility] Comment on above: Order Comment: [facility] has implemented the eGFR calculation approach that does not have a coefficient for race that conforms to the NKF-ASN Task Force Recommendations. Performed By: #### 4 6124 #### LAB [address] [address] Jack Mendoza M.D. [id number] Basic metabolic 2000 panelon 05-14-2025 Anion gap [Moles/Vol] 13 mmol/L 10 - 20 mmol/L [facility] Calcium [Mass/Vol] 8.1 mg/dL Low 8.4 - 10. 2 mg/dL [facility] Chloride [Moles/Vol] 99 mmol/L 98 - 10 8 mmol/L [facility] Creatinine [Mass/Vol] 0.57 mg/dL 0.50 - 1.30 mg/dL [facility] GFR/1.73 sq M.predicted CKD-EPI (S/P/Bld) [Vol rate/Area] 114 - PINF [facility] Comment on above: Estimated GFR was ca lculated using the 2020 CKD-EPI creatinine equation. Glucose [Mass/Vol] 170 mg/dL High 65 - 99 mg/dL [facility] HCO3 [Moles/Vol] 26 mmol/L 21 - 32 mmol/L [facility] Interpretation and review of laboratory results Abnormal [facility] Potassium [Moles/Vol] 4.1 mmol/L 3.5 - 5.1 mmol/L [facility] Sodium [Moles/Vol] 134 mmol/L Low 135 - 145 mmol/L [facility] Urea nitrogen [Mass/Vol] 13 mg/dL 8 - 25 mg/dL [facility] Urea nitrogen/Creatinine [Mass ratio] 22.8 mg/mg High 10.0 - 20.0 [facility] has implemented the eGFR calculation approach that does not have a coefficient for race that conforms to the NKF-ASN Task Force Recommendations. [facility] CBCon 05-14-2025 AUTO NRBC 0.0 % Normal [facility] Comment on above: Performed By: #### 4 [id number] #### LAB [address] [address] Jack Mendoza M.D. [id number] AUTO NRBC ABS COUNT 0.00 K/mcL Normal 0.00-0.00 [facility] Comment on above: Performed By: #### 4 [id number] ####[facility] LAB [address] [address] Jack Mendoza M.D. [id number] Erythrocyte distribution width (RBC) [Ratio] 15.5 % High 11.6-14.8 [facility] Comment on above: Performed By: #### 4 [id number] ####[facility] LAB [address] [address] Jack Mendoza M.D. [id number] Hematocrit (Bld) [Volume fraction] 35.0 % Low 41.0-53.0 [facility] Comment on above: Performed By: #### 4 [id number] #### LAB [address] [address] Jack Mendoza M.D. [id number] Hemoglobin (Bld) [Mass/Vol] 10.4 g/dL Low 13.5-17.5 [facility] Comment on above: Performed By: #### 4 [id number] #### LAB [address] [address] Jack Mendoza M.D. [id number] MCH (RBC) [Entitic mass] 20.5 pg Low 26.0-34.0 [facility] Comment on above: Performed By: #### 4 [id number] #### LAB [address] [address] Jack Mendoza M.D. [id number] MCV (RBC) [Entitic vol] 68.9 fL Low 80.0-100.0 [facility] Comment on above: Performed By: #### 4 [id number] #### LAB [address] [address] Jack Mendoza M.D. [id number] MEAN CORPUSCULAR HEMOGLOBIN CONC 29.7 g/dL Low 31.0-37.0 [facility] Comment on above: Performed By: #### 4 [id number] #### LAB [address] [address] Jack Mendoza M.D. [id number] Platelets (Bld) [#/Vol] 111 10*3/uL Low 150-400 [facility] Comment on above: Performed By: #### 4 [id number] #### LAB [address] [address] Jack Mendoza M.D. [id number] RBC (Bld) [#/Vol] 5.08 10*6/uL Normal 4.50-5.90 [facility] Comment on above: Performed By: #### 4 [id number] #### LAB [address] [place], [place] [address] Jack Mendoza M.D. [id number] WBC (Bld) [#/Vol] 2.80 10*3/uL Low 4.50-11.00 [facility] Comment on above: Performed By: #### 4 [id number] #### LAB [address] [place], [place] [address] Jack Mendoza M.D. [id number] CBC panel Auto (Bld)on 05-14 Erythrocyte distribution width (RBC) [Entitic vol] 15.5 % High 11.6 - 14.8 % [facility] Hematocrit (Bld) [Volume fraction] 35 % Low 41.0 - 53.0 % [facility] Hemoglobin (Bld) [Mass/Vol] 10.4 g/dL Low 13.5 - 17.5 g/dL [facility] Interpretation and review of laboratory results Abnormal [facility] MCH (RBC) [Entitic mass] 20.5 pg Low 26.0 - 34.0 pg [facility] MCHC (RBC) [Mass/Vol] 29.7 g/dL Low 31.0 - 37.0 g/dL [facility] MCV (RBC) [Entitic vol] 68.9 fL Low 80.0 - 100.0 fL [facility] Nucleated RBC (Bld) [#/Vol] 0 10*3/uL [facility] Nucleated RBC/100 WBC (Bld) [Ratio] 0 % [facility] Platelets (Bld) [#/Vol] 111 10*3/uL Low [facility] RBC (Bld) [#/Vol] 5.08 10*6/uL [facility] WBC (Bld) [#/Vol] 2.8 10*3/uL Low [facility] Glucose (Bld) [Mass/Vol]on 0 05-14-2025 Glucose [Mass/Vol] 143 mg/dL High 65 - 99 mg/dL [facility] Interpretation and review of laboratory results Abnormal [facility] Glucose [Mass/Vol] 121 mg/dL High 65 - 99 mg/dL [facility] Interpretation and review of laboratory results Abnormal [facility] Glucose [Mass/Vol] 260 mg/dL High 65 - 99 mg/dL [facility] Interpretation and review of laboratory results Abnormal [facility] Glucose [Mass/Vol] 120 mg/dL High 65 - 99 mg/dL [facility] Interpretation and review of laboratory results Abnormal [facility] MAGNESIUM LEVELon 05-14-2025 Magnesium [Mass/Vol] 1.8 mg/dL Normal 1.6-2.4 [facility] Comment on above: Performed By: #### 4 6109 ####[facility] LAB [address] [place], [place] [address] Jack Mendoza M.D. [id number] Magnesium Levelon 05-14-2025 Magnesium [Mass/Vol] 1.8 mg/dL 1.6 - 2 .4 mg/dL [facility] Magnesium [Mass/Vol]on 05-14 Interpretation and review of laboratory results Normal [facility] No Panel Informationon 05-14 [facility] POC GLUCOSE - [facility] 025 Glucose [Mass/Vol] 143 mg/dL High 65-99 [facility] Glucose [Mass/Vol] 121 mg/dL High 65-99 [facility] Glucose [Mass/Vol] 260 mg/dL High 65-99 [facility] Glucose [Mass/Vol] 120 mg/dL High 65-99 [facility] ALPHA DEFENSINon 05-13-2025 ALPHA DEFENSIN ALPHA DEFENSIN DETECTED Alpha defensin detected suggesting the presence of infection. Additional laboratory studies are recommended. Abnormal [facility] Comment on above: Performed By: #### [id number] #### LAB [address] [place], [place] [address] Jack Mendoza M.D. [id number] Alpha defensinOrdered By: Marlen Mcintyre on 05-13-2025 Alpha Defensin Detected Abnormal Not Detected [facility] Comment on above: Alpha defensin detec quan suggesting the presence of infection. Additional laboratory studies are recommended. Interpretation and review of laboratory results Abnormal [facility] BASIC METABOLIC PANELon 04-23 Anion gap [Moles/Vol] 12 mmol/L Normal 10-20 [facility] Comment on above: Order Comment: [facility] has implemented the eGFR calculation approach that does not have a coefficient for race that conforms to the NKF-ASN Task Force Recommendations. Performed By: #### 4 6124 #### LAB [address] [address] Jack Mendoza M.D. [id number] Calcium [Mass/Vol] 8.2 mg/dL Low 8.4-10.2 [facility] Comment on above: Order Comment: [facility] has implemented the eGFR calculation approach that does not have a coefficient for race that conforms to the NKF-ASN Task Force Recommendations. Performed By: #### 4 6124 #### LAB [address] [address] Jack Mendoza M.D. [id number] Chloride [Moles/Vol] 97 mmol/L Low 98-108 [facility] Comment on above: Order Comment: [facility] has implemented the eGFR calculation approach that does not have a coefficient for race that conforms to the NKF-ASN Task Force Recommendations. Performed By: #### 4 6124 #### LAB [address] [address] Jack Mendoza M.D. [id number] Creatinine [Mass/Vol] 0.64 mg/dL Normal 0.50-1.30 [facility] Comment on above: Order Comment: [facility] has implemented the eGFR calculation approach that does not have a coefficient for race that conforms to the NKF-ASN Task Force Recommendations. Performed By: #### 4 6124 #### LAB [address] [address] Jack Mendoza M.D. [id number] EGFR 110 mL/min/1.73 m2 Normal >=60 [facility] Comment on above: Order Comment: [facility] has implemented the eGFR calculation approach that does not have a coefficient for race that conforms to the NKF-ASN Task Force Recommendations. Result Comment: Ashley mated GFR was calculated using the 2020 CKD-EPI creatinine equation. Performed By: #### 4 6124 #### LAB [address] [address] Jack Mendoza M.D. [id number] Glucose [Mass/Vol] 102 mg/dL High 65-99 [facility] Comment on above: Order Comment: [facility] has implemented the eGFR calculation approach that does not have a coefficient for race that conforms to the NKF-ASN Task Force Recommendations. Performed By: #### 4 6124 ####[facility] LAB [address] [address] Jack Mendoza M.D. [id number] HCO3 (Bld) [Moles/Vol] 30 mmol/L Normal 21-32 [facility] Comment on above: Order Comment: [facility] has implemented the eGFR calculation approach that does not have a coefficient for race that conforms to the NKF-ASN Task Force Recommendations. Performed By: #### 4 6124 #### LAB [address] [address] Jack Mendoza M.D. [id number] Potassium [Moles/Vol] 3.4 mmol/L Low 3.5-5.1 [facility] Comment on above: Order Comment: [facility] has implemented the eGFR calculation approach that does not have a coefficient for race that conforms to the NKF-ASN Task Force Recommendations. Performed By: #### 4 6124 ####[facility] LAB [address] [address] Jack Mendoza M.D. [id number] Sodium [Moles/Vol] 136 mmol/L Normal 135-145 [facility] Comment on above: Order Comment: [facility] has implemented the eGFR calculation approach that does not have a coefficient for race that conforms to the NKF-ASN Task Force Recommendations. Performed By: #### 4 6172 ####[facility] LAB [address] [address] Jack Mendoza M.D. [id number] Urea nitrogen [Mass/Vol] 11 mg/dL Normal 8-25 [facility] Comment on above: Order Comment: [facility] has implemented the eGFR calculation approach that does not have a coefficient for race that conforms to the NKF-ASN Task Force Recommendations. Performed By: #### 4 6141 #### LAB [address] [place], [place] [address] Jack Mendoza M.D. [id number] Urea nitrogen/Creatinine [Mass ratio] 17.2 mg/mg Normal 10.0-20.0 [facility] Comment on above: Order Comment: [facility] has implemented the eGFR calculation approach that does not have a coefficient for race that conforms to the NKF-ASN Task Force Recommendations. Performed By: #### 4 6124 #### LAB [address] [place], [place] [address] Jack Mendoza M.D. [id number] Basic metabolic 2000 panelon 05-13-2025 Anion gap [Moles/Vol] 12 mmol/L 10 - 20 mmol/L [facility] Calcium [Mass/Vol] 8.2 mg/dL Low 8.4 - 10. 2 mg/dL [facility] Chloride [Moles/Vol] 97 mmol/L Low 98 - 10 8 mmol/L [facility] Creatinine [Mass/Vol] 0.64 mg/dL 0.50 - 1.30 mg/dL [facility] GFR/1.73 sq M.predicted CKD-EPI (S/P/Bld) [Vol rate/Area] 110 - PINF [facility] Comment on above: Estimated GFR was ca lculated using the 2020 CKD-EPI creatinine equation. Glucose [Mass/Vol] 102 mg/dL High 65 - 99 mg/dL [facility] HCO3 [Moles/Vol] 30 mmol/L 21 - 32 mmol/L [facility] Interpretation and review of laboratory results Abnormal [facility] Potassium [Moles/Vol] 3.4 mmol/L Low 3.5 - 5.1 mmol/L [facility] Sodium [Moles/Vol] 136 mmol/L 135 - 145 mmol/L [facility] Urea nitrogen [Mass/Vol] 11 mg/dL 8 - 25 mg/dL [facility] Urea nitrogen/Creatinine [Mass ratio] 17.2 mg/mg 10.0 - 20.0 [facility] has implemented the eGFR calculation approach that does not have a coefficient for race that conforms to the NKF-ASN Task Force Recommendations. [facility] CBCon 05-13-2025 AUTO NRBC 0.0 % Normal [facility] Comment on above: Performed By: #### 4 [id number] #### LAB [address] [place] [address] Jack Mendoza M.D. [id number] AUTO NRBC ABS COUNT 0.00 K/mcL Normal 0.00-0.00 [facility] Comment on above: Performed By: #### 4 [id number] #### LAB [address] [place] [address] Jack Mendoza M.D. [id number] Erythrocyte distribution width (RBC) [Ratio] 15.4 % High 11.6-14.8 [facility] Comment on above: Performed By: #### 4 [id number] #### LAB [address] [place] [address] Jack Mendoza M.D. [id number] Hematocrit (Bld) [Volume fraction] 35.3 % Low 41.0-53.0 [facility] Comment on above: Performed By: #### 4 [id number] #### LAB [address] [place] [address] Jack Mendoza M.D. [id number] Hemoglobin (Bld) [Mass/Vol] 10.7 g/dL Low 13.5-17.5 [facility] Comment on above: Performed By: #### 4 [id number] #### LAB [address] [place] [address] Jack Mendoza M.D. [id number] MCH (RBC) [Entitic mass] 20.7 pg Low 26.0-34.0 [facility] Comment on above: Performed By: #### 4 [id number] #### LAB [address] [place] [address] Jack Mendoza M.D. [id number] MCV (RBC) [Entitic vol] 68.4 fL Low 80.0-100.0 [facility] Comment on above: Performed By: #### 4 [id number] #### LAB [address] [place] [address] Jack Mendoza M.D. [id number] MEAN CORPUSCULAR HEMOGLOBIN CONC 30.3 g/dL Low 31.0-37.0 [facility] [facility] Comment on above: Performed By: #### 4 [id number] #### LAB [address] [address] Jack Mendoza M.D. [id number] Platelets (Bld) [#/Vol] 115 10*3/uL Low 150-400 [facility] Comment on above: Performed By: #### 4 [id number] ####[facility] LAB [address] [address] Jack Mendoza M.D. [id number] RBC (Bld) [#/Vol] 5.16 10*6/uL Normal 4.50-5.90 [facility] Comment on above: Performed By: #### 4 [id number] #### LAB [address] [address] Jack Mendoza M.D. [id number] WBC (Bld) [#/Vol] 2.82 10*3/uL Low 4.50-11.00 [facility] Comment on above: Performed By: #### 4 [id number] #### LAB [address] [address] Jack Mendoza M.D. [id number] CBC panel Auto (Bld)on 05-13 Erythrocyte distribution width (RBC) [Entitic vol] 15.4 % High 11.6 - 14.8 % [facility] Hematocrit (Bld) [Volume fraction] 35.3 % Low 41.0 - 53.0 % [facility] Hemoglobin (Bld) [Mass/Vol] 10.7 g/dL Low 13.5 - 17.5 g/dL [facility] Interpretation and review of laboratory results Abnormal [facility] MCH (RBC) [Entitic mass] 20.7 pg Low 26.0 - 34.0 pg [facility] MCHC (RBC) [Mass/Vol] 30.3 g/dL Low 31.0 - 37.0 g/dL [facility] MCV (RBC) [Entitic vol] 68.4 fL Low 80.0 - 100.0 fL [facility] Nucleated RBC (Bld) [#/Vol] 0 10*3/uL [facility] Nucleated RBC/100 WBC (Bld) [Ratio] 0 % [facility] Platelets (Bld) [#/Vol] 115 10*3/uL Low [facility] RBC (Bld) [#/Vol] 5.16 10*6/uL [facility] WBC (Bld) [#/Vol] 2.82 10*3/uL Low [facility] Glucose (Bld) [Mass/Vol]on 0 05-13-2025 Glucose [Mass/Vol] 180 mg/dL High 65 - 99 mg/dL [facility] Interpretation and review of laboratory results Abnormal [facility] Glucose [Mass/Vol] 97 mg/dL 65 - 99 mg/dL [facility] Interpretation and review of laboratory results Normal [facility] Glucose [Mass/Vol] 102 mg/dL High 65 - 99 mg/dL [facility] Interpretation and review of laboratory results Abnormal [facility] Glucose [Mass/Vol] 100 mg/dL High 65 - 99 mg/dL [facility] Interpretation and review of laboratory results Abnormal [facility] MAGNESIUM LEVELon 05-13-2025 Magnesium [Mass/Vol] 1.7 mg/dL Normal 1.6-2.4 [facility] Comment on above: Performed By: #### 4 [id number] ####[facility] LAB [address] [place], [place] [address] Jack Mendoza M.D. [id number] MRSA DNA Amplified ProbeOrde red By: Brianna Predum on 05-13-2025 MRSA DNA HERMAN+probe Ql (Unsp spec) Not detected Not Detected, MRSA NEGATIVE [facility] MRSA DNA HERMAN+probe Ql (Unsp spec)Ordered By: Brianna Predum on 05-13-2025 Interpretation and review of laboratory results Normal [facility] Magnesium Levelon 05-13-2025 Magnesium [Mass/Vol] 1.7 mg/dL 1.6 - 2 .4 mg/dL [facility] Magnesium [Mass/Vol]on 05-13 Interpretation and review of laboratory results Normal [facility] No Panel Informationon 05-13 [facility] OP NOTEon 05-13-2025 OP NOTE Normal [facility] POC GLUCOSE - Shannon 025 Glucose [Mass/Vol] 180 mg/dL High 65-99 [facility] Glucose [Mass/Vol] 97 mg/dL Normal 65-99 [facility] Glucose [Mass/Vol] 102 mg/dL High 65-99 [facility] Glucose [Mass/Vol] 100 mg/dL High 65-99 [facility] SURGICAL SITE AEROBIC AND AN AEROBIC CULTUREon 05-13-2025 SURGICAL SITE AEROBIC AND ANAEROBIC CULTURE CULTURE No Anaerobic Growth after 5 days CORYNEBACTERIUM SPECIES Rare growth Corynebacterium species, not JK GRAM STAIN RESULT Many WBC Many RBC No Organisms Seen Abnormal [facility] Comment on above: Performed By: #### L [id number] ####[facility] [address] [place] [address] Venancio Richardson M.D. [id number] SURGICAL SITE AEROBIC AND ANAEROBIC CULTURE CULTURE No Anaerobic Growth after 5 days CORYNEBACTERIUM SPECIES Rare growth Corynebacterium species, not JK GRAM STAIN RESULT Moderate WBC No Organisms Seen Abnormal [facility] Comment on above: Performed By: #### L [id number] ####[facility] [address] [place] [address] Venancio Richardson M.D. [id number] SURGICAL SITE AEROBIC AND ANAEROBIC CULTURE CULTURE No Growth after 5 days GRAM STAIN RESULT Moderate WBC Many RBC No Organisms Seen Normal [facility] Comment on above: Performed By: #### L [id number] ####[facility] [address] [place] [address] Venancio Richardson M.D. [id number] SURGICAL SITE AEROBIC AND ANAEROBIC CULTURE CULTURE No Growth after 5 days GRAM STAIN RESULT Few WBC Many RBC No Organisms Seen Normal [facility] Comment on above: Performed By: #### L [id number] ####[facility] [address] [place] [address] Venancio Richardson M.D. [id number] VANCOMYCIN LEVEL, RANDOMon 0 05-13-2025 VANCOMYCIN RANDOM 23.7 mcg/mL Normal [facility] Comment on above: Order Comment: As of 05/2022 vancomycin dosing for [facility] inpatients will be done by Bayesian dosing software rather than off traditional trough values. Please contact the site specific inpatient pharmacy before making dose changes off of trough values alone for admitted patients.No established reference range. Performed By: #### 4 6651 #### LAB [address] [place], [place] [address] Jack Mendoza M.D. [id number] Vancomycin Level, Randomon 0 05-13-2025 Vancomycin [Mass/Vol] 23.7 mcg/mL [facility] Vancomycin [Mass/Vol]on 04-23 As of 05/2022 vancom ycin dosing for [facility] inpatients will be done by Bayesian dosing software rather than off traditional trough values. Please contact the site specific inpatient pharmacy before making dose changes off of trough values alone for admitted patients. No established reference range. [facility] BASIC METABOLIC PANELon 04-23 Anion gap [Moles/Vol] 14 mmol/L Normal 10-20 [facility] Comment on above: Order Comment: [facility] has implemented the eGFR calculation approach that does not have a coefficient for race that conforms to the NKF-ASN Task Force Recommendations. Performed By: #### 4 6124 #### LAB [address] [place], [place] [address] Jack Mendoza M.D. [id number] Calcium [Mass/Vol] 8.5 mg/dL Normal 8.4-10.2 [facility] Comment on above: Order Comment: [facility] has implemented the eGFR calculation approach that does not have a coefficient for race that conforms to the NKF-ASN Task Force Recommendations. Performed By: #### 4 6124 #### LAB [address] [id number] Jack Mendoza M.D. [id number] Chloride [Moles/Vol] 99 mmol/L Normal 98-108 [facility] Comment on above: Order Comment: [facility] has implemented the eGFR calculation approach that does not have a coefficient for race that conforms to the NKF-ASN Task Force Recommendations. Performed By: #### 4 6124 #### LAB [address] [place], [place] [address] Jack Mendoza M.D. [id number] Creatinine [Mass/Vol] 0.60 mg/dL Normal 0.50-1.30 [facility] Comment on above: Order Comment: [facility] has implemented the eGFR calculation approach that does not have a coefficient for race that conforms to the NKF-ASN Task Force Recommendations. Performed By: #### 4 6112 #### LAB [address] [place], [place] [address] Jack Mendoza M.D. [id number] EGFR 112 mL/min/1.73 m2 Normal >=60 [facility] Comment on above: Order Comment: [facility] has implemented the eGFR calculation approach that does not have a coefficient for race that conforms to the NKF-ASN Task Force Recommendations. Result Comment: Ashley mated GFR was calculated using the 2020 CKD-EPI creatinine equation. Performed By: #### 4 6145 #### LAB [address] [address] Jack Mendoza M.D. [id number] Glucose [Mass/Vol] 178 mg/dL High 65-99 [facility] Comment on above: Order Comment: [facility] has implemented the eGFR calculation approach that does not have a coefficient for race that conforms to the NKF-ASN Task Force Recommendations. Performed By: #### 4 6110 #### LAB [address] [address] Jack Mendoza M.D. [id number] HCO3 (Bld) [Moles/Vol] 26 mmol/L Normal 21-32 [facility] Comment on above: Order Comment: [facility] has implemented the eGFR calculation approach that does not have a coefficient for race that conforms to the NKF-ASN Task Force Recommendations. Performed By: #### 4 6165 #### LAB [address] [address] Jack Mendoza M.D. [id number] Potassium [Moles/Vol] 3.6 mmol/L Normal 3.5-5.1 [facility] Comment on above: Order Comment: [facility] has implemented the eGFR calculation approach that does not have a coefficient for race that conforms to the NKF-ASN Task Force Recommendations. Performed By: #### 4 4617 #### LAB [address] [place], [place] [address] Jack Mendoza M.D. [id number] Sodium [Moles/Vol] 135 mmol/L Normal 135-145 [facility] Comment on above: Order Comment: [facility] has implemented the eGFR calculation approach that does not have a coefficient for race that conforms to the NKF-ASN Task Force Recommendations. Performed By: #### 4 6124 #### LAB [address] [address] Jack Mendoza M.D. [id number] Urea nitrogen [Mass/Vol] 12 mg/dL Normal 8-25 [facility] Comment on above: Order Comment: [facility] has implemented the eGFR calculation approach that does not have a coefficient for race that conforms to the NKF-ASN Task Force Recommendations. Performed By: #### 4 6124 #### LAB [address] [address] Jack Mendoza M.D. [id number] Urea nitrogen/Creatinine [Mass ratio] 20.0 mg/mg Normal 10.0-20.0 [facility] Comment on above: Order Comment: [facility] has implemented the eGFR calculation approach that does not have a coefficient for race that conforms to the NKF-ASN Task Force Recommendations. Performed By: #### 4 6124 #### LAB [address] [place], [place] [address] Jack Mendoza M.D. [id number] Basic metabolic 2000 panelon 05-12-2025 Anion gap [Moles/Vol] 14 mmol/L 10 - 20 mmol/L [facility] Calcium [Mass/Vol] 8.5 mg/dL 8.4 - 10. 2 mg/dL [facility] Chloride [Moles/Vol] 99 mmol/L 98 - 10 8 mmol/L [facility] Creatinine [Mass/Vol] 0.6 mg/dL 0.50 - 1.30 mg/dL [facility] GFR/1.73 sq M.predicted CKD-EPI (S/P/Bld) [Vol rate/Area] 112 - PINF [facility] Comment on above: Estimated GFR was ca lculated using the 2020 CKD-EPI creatinine equation. Glucose [Mass/Vol] 178 mg/dL High 65 - 99 mg/dL [facility] HCO3 [Moles/Vol] 26 mmol/L 21 - 32 mmol/L [facility] Interpretation and review of laboratory results Abnormal [facility] Potassium [Moles/Vol] 3.6 mmol/L 3.5 - 5.1 mmol/L [facility] Sodium [Moles/Vol] 135 mmol/L 135 - 145 mmol/L [facility] Urea nitrogen [Mass/Vol] 12 mg/dL 8 - 25 mg/dL [facility] Urea nitrogen/Creatinine [Mass ratio] 20 mg/mg 10.0 - 20.0 [facility] has implemented the eGFR calculation approach that does not have a coefficient for race that conforms to the NKF-ASN Task Force Recommendations. [facility] CBC Auto Differentialon 04-23 Basophils (Bld) [#/Vol] 0.01 10*3/uL [facility] Basophils/100 WBC (Bld) 0.3 % [facility] Eosinophils (Bld) [#/Vol] 0.1 10*3/uL [facility] Eosinophils/100 WBC (Bld) 3.4 % [facility] Erythrocyte distribution width (RBC) [Entitic vol] 15.7 % High 11.6 - 14.8 % [facility] Hematocrit (Bld) [Volume fraction] 36 % Low 41.0 - 53.0 % [facility] Hemoglobin (Bld) [Mass/Vol] 10.9 g/dL Low 13.5 - 17.5 g/dL [facility] Immature granulocytes (Bld) [#/Vol] 0.01 10*3/uL [facility] Immature granulocytes/100 WBC (Bld) 0.3 % [facility] Comment on above: The IG parameter is the percentage of metamyelocytes, myelocytes and promyelocytes. An immature granulocyte count (IG) of 1% or more suggests the possibility of infection, an IG count of 3% is very likely related to an infection. Interpretation and review of laboratory results Abnormal [facility] Lymphocytes (Bld) [#/Vol] 0.63 10*3/uL Low [facility] Lymphocytes/100 WBC (Bld) 21.3 % [facility] MCH (RBC) [Entitic mass] 21 pg Low 26.0 - 34.0 pg [facility] MCHC (RBC) [Mass/Vol] 30.3 g/dL Low 31.0 - 37.0 g/dL [facility] MCV (RBC) [Entitic vol] 69.4 fL Low 80.0 - 100.0 fL [facility] Monocytes (Bld) [#/Vol] 0.26 10*3/uL Low [facility] Monocytes/100 WBC (Bld) 8.8 % [facility] Neutrophils (Bld) [#/Vol] 1.95 10*3/uL [facility] Neutrophils/100 WBC (Bld) 65.9 % [facility] Nucleated RBC (Bld) [#/Vol] 0 10*3/uL [facility] Nucleated RBC/100 WBC (Bld) [Ratio] 0 % [facility] Platelets (Bld) [#/Vol] 117 10*3/uL Low [facility] RBC (Bld) [#/Vol] 5.19 10*6/uL [facility] WBC (Bld) [#/Vol] 2.96 10*3/uL Low [facility] WITH AUTO DIFFERENTIALon 05-12-2025 AUTO NRBC 0.0 % [facility] Comment on above: Performed By: #### L [id number] #### LAB [address] [address] Jack Mendoza M.D. [id number] AUTO NRBC ABS COUNT 0.00 K/mcL Normal 0.00-0.00 [facility] Comment on above: Performed By: #### L [id number] #### LAB [address] [place], [place] [address] Jack Mendoza M.D. [id number] BASOPHILS ABSOLUTE COUNT 0.01 K/mcL Normal 0.00-0.30 [facility] Comment on above: Performed By: #### L [id number] #### LAB [address] [place], [place] [address] Jack Mendoza M.D. [id number] Basophils/100 WBC (Bld) 0.3 % [facility] Comment on above: Performed By: #### L [id number] #### LAB [address] [place], [place] [address] Jack Mendoza M.D. [id number] Eosinophils (Bld) [#/Vol] 0.10 10*3/uL Normal 0.00-0.50 [facility] Comment on above: Performed By: #### L [id number] #### LAB [address] [address] Jack Mendoza M.D. [id number] Eosinophils/100 WBC (Bld) 3.4 % Normal [facility] Comment on above: Performed By: #### L [id number] #### LAB [address] [address] Jack Mendoza M.D. [id number] Erythrocyte distribution width (RBC) [Ratio] 15.7 % High 11.6-14.8 [facility] Comment on above: Performed By: #### L [id number] #### LAB [address] [address] Jack Mendoza M.D. [id number] Hematocrit (Bld) [Volume fraction] 36.0 % Low 41.0-53.0 [facility] Comment on above: Performed By: #### L [id number] #### LAB [address] [address] Jack Mendoza M.D. [id number] Hemoglobin (Bld) [Mass/Vol] 10.9 g/dL Low 13.5-17.5 [facility] Comment on above: Performed By: #### L [id number] #### LAB [address] [place] [address] Jack Mendoza M.D. [id number] IG ABSOLUTE 0.01 K/mcL Normal 0.00-0.30 [facility] Comment on above: Performed By: #### L [id number] #### LAB [address] [place] [address] Jack Mendoza M.D. [id number] IG PERCENT 0.30 % Normal [facility] Comment on above: Result Comment: The IG parameter is the percentage of metamyelocytes, myelocytes and promyelocytes. An immature granulocyte count (IG) of 1% or more suggests the possibility of infection, an IG count of 3% is very likely related to an infection. Performed By: #### L [id number] ####[facility] [address] [address] Jack Mendoza M.D. [id number] Lymphocytes (Bld) [#/Vol] 0.63 10*3/uL Low 0.90-4.00 [facility] Comment on above: Performed By: #### L [id number] #### LAB [address] [address] Jack Mendoza M.D. [id number] Lymphocytes/100 WBC (Bld) 21.3 % [facility] Comment on above: Performed By: #### L [id number] #### LAB [address] [address] Jack Mendoza M.D. [id number] MCH (RBC) [Entitic mass] 21.0 pg Low 26.0-34.0 [facility] Comment on above: Performed By: #### L [id number] #### LAB [address] [place] [address] Jack Mendoza M.D. [id number] MCV (RBC) [Entitic vol] 69.4 fL Low 80.0-100.0 [facility] Comment on above: Performed By: #### L [id number] #### LAB [address] [address] Jack Mendoza M.D. [id number] MEAN CORPUSCULAR HEMOGLOBIN CONC 30.3 g/dL Low 31.0-37.0 [facility] Comment on above: Performed By: #### L [id number] #### LAB [address] [place] [address] Jack Mendoza M.D. [id number] Monocytes (Bld) [#/Vol] 0.26 10*3/uL Low 0.30-0.90 [facility] Comment on above: Performed By: #### L [id number] #### LAB [address] [place] [address] Jack Mendoza M.D. [id number] Monocytes/100 WBC (Bld) 8.8 % [facility] Comment on above: Performed By: #### L [id number] #### LAB [address] [address] Jack Mendoza M.D. [id number] NEUTROPHILS ABSOLUTE COUNT 1.95 K/mcL Normal 1.70-7.00 [facility] Comment on above: Performed By: #### L [id number] ####[facility] [address] [address] Jack Mendoza M.D. [id number] Neutrophils/100 WBC (Bld) 65.9 % Normal [facility] Comment on above: Performed By: #### L [id number] ####[facility] [address] [address] Jack Mendoza M.D. [id number] Platelets (Bld) [#/Vol] 117 10*3/uL Low 150-400 [facility] Comment on above: Performed By: #### L [id number] ####[facility] [address] [address] Jack Mendoza M.D. [id number] RBC (Bld) [#/Vol] 5.19 10*6/uL Normal 4.50-5.90 [facility] Comment on above: Performed By: #### L [id number] ####[facility] [address] [address] Jack Mendoza M.D. [id number] WBC (Bld) [#/Vol] 2.96 10*3/uL Low 4.50-11.00 [facility] Comment on above: Performed By: #### L [id number] ####[facility] [address] [address] Jack Mendoza M.D. [id number] CONSULTon 05-12-2025 CONSULT Normal [facility] DRUGS OF ABUSE SCREEN, URINE on 05-12-2025 AMPHETAMINE SCREEN, URINE Not detected Normal None Detected [facility] Comment on above: Order Comment: Scree n results should be used for treatment purposes only.Specimen will be kept for 2 weeks, if the sample is adequate. Confirmation testing can be initiated by calling the lab within 2 weeks. Result Comment: Urin e Amphetamine Cutoff: < 1000 ng/mL = None Detected Performed By: #### 4 6965 #### LAB [address] [address] Jack Mendoza M.D. [id number] BARBITURATE SCREEN URINE Not detected Normal None Detected [facility] Comment on above: Order Comment: Scree n results should be used for treatment purposes only.Specimen will be kept for 2 weeks, if the sample is adequate. Confirmation testing can be initiated by calling the lab within 2 weeks. Result Comment: Urin e Barbiturates Cutoff: < 200 ng/mL = None Detected Performed By: #### 4 6965 #### LAB [address] [address] Jack Mendoza M.D. [id number] BENZODIAZEPINE SCREEN, URINE Not detected Normal None Detected [facility] Comment on above: Order Comment: Scree n results should be used for treatment purposes only.Specimen will be kept for 2 weeks, if the sample is adequate. Confirmation testing can be initiated by calling the lab within 2 weeks. Result Comment: Urin e Benzodiazepine Cutoff: < 200 ng/mL = None Detected Performed By: #### 4 6965 #### LAB [address] [address] Jack Mendoza M.D. [id number] BUPRENORPHINE, URINE Positive Abnormal None Detected [facility] Comment on above: Order Comment: Scree n results should be used for treatment purposes only.Specimen will be kept for 2 weeks, if the sample is adequate. Confirmation testing can be initiated by calling the lab within 2 weeks. Result Comment: Urin e Buprenorphine Cutoff: < 5 ng/mL = None Detected Performed By: #### 4 6965 #### LAB [address] [address] Jack Mendoza M.D. [id number] CANNABINOID SCREEN URINE Not detected Normal None Detected [facility] Comment on above: Order Comment: Scree n results should be used for treatment purposes only.Specimen will be kept for 2 weeks, if the sample is adequate. Confirmation testing can be initiated by calling the lab within 2 weeks. Result Comment: Urin e Cannabinoids Cutoff: < 50 ng/mL = None Detected Performed By: #### 4 6965 #### LAB [address] [address] Jack Mendoza M.D. [id number] COCAINE, SCREEN URINE Positive Abnormal None Detected [facility] Comment on above: Order Comment: Scree n results should be used for treatment purposes only.Specimen will be kept for 2 weeks, if the sample is adequate. Confirmation testing can be initiated by calling the lab within 2 weeks. Result Comment: Urin e Cocaine Cutoff: < 300 ng/mL = None Detected Performed By: #### 4 6965 #### LAB [address] [address] Jack Mendoza M.D. [id number] FENTANYL, URINE Not detected Normal None Detected [facility] Comment on above: Order Comment: Scree n results should be used for treatment purposes only.Specimen will be kept for 2 weeks, if the sample is adequate. Confirmation testing can be initiated by calling the lab within 2 weeks. Result Comment: Urin e Fentanyl Cutoff: < 1 ng/mL = None Detected Performed By: #### 4 6965 #### LAB [address] [address] Jack Mendoza M.D. [id number] METHADONE SCREEN, URINE Not detected Normal None Detected [facility] Comment on above: Order Comment: Scree n results should be used for treatment purposes only.Specimen will be kept for 2 weeks, if the sample is adequate. Confirmation testing can be initiated by calling the lab within 2 weeks. Result Comment: Urin e Methadone Cutoff: < 300 ng/mL = None Detected Performed By: #### 4 6965 ####[facility] [address] [address] Jack Mendoza M.D. [id number] OPIATE SCREEN URINE Not detected Normal None Detected [facility] Comment on above: Order Comment: Scree n results should be used for treatment purposes only.Specimen will be kept for 2 weeks, if the sample is adequate. Confirmation testing can be initiated by calling the lab within 2 weeks. Result Comment: Urin e Opiates Cutoff: < 300 ng/mL = None Detected Performed By: #### 4 6965 ####[facility] [address] [place], [place] [address] Jack Mendoza M.D. [id number] OXYCODONE SCREEN, URINE Positive Abnormal None Detected [facility] Comment on above: Order Comment: Scree n results should be used for treatment purposes only.Specimen will be kept for 2 weeks, if the sample is adequate. Confirmation testing can be initiated by calling the lab within 2 weeks. Result Comment: Urin e Oxycodone Cutoff: < 100 ng/mL = None Detected Performed By: #### 4 [id number] #### LAB [address] [place], [place] [address] Jack Mendoza M.D. [id number] Drugs of Abuse Screen, Urine Ordered By: Neeru Calvert on 05-12-2025 Amphetamines Ql (U) Not detected None Detected [facility] Comment on above: Urine Amphetamine Cu toff: < 1000 ng/mL = None Detected Barbiturates Screen Ql (U) Not detected None Detected [facility] Comment on above: Urine Barbiturates C utoff: < 200 ng/mL = None Detected Benzodiazepines Ql (U) Not detected None Detected [facility] Comment on above: Urine Benzodiazepine Cutoff: < 200 ng/mL = None Detected Buprenorphine Ql (U) Positive Abnormal None Detected [facility] Comment on above: Urine Buprenorphine Cutoff: < 5 ng/mL = None Detected Cannabinoids Screen Ql (U) Not detected None Detected [facility] Comment on above: Urine Cannabinoids C utoff: < 50 ng/mL = None Detected Cocaine Ql (U) Positive Abnormal None Detected [facility] Comment on above: Urine Cocaine Cutoff : < 300 ng/mL = None Detected fentaNYL+Norfentanyl Screen Ql (U) Not detected None Detected [facility] Comment on above: Urine Fentanyl Cutof f: < 1 ng/mL = None Detected Interpretation and review of laboratory results Abnormal [facility] [facility] Screen Ql (U) Not detected None Detected [facility] Comment on above: Urine Methadone Cuto ff: < 300 ng/mL = None Detected Opiates Screen Ql (U) Not detected None Detected [facility] Comment on above: Urine Opiates Cutoff : < 300 ng/mL = None Detected oxyCODONE Ql (U) Positive Abnormal None Detected [facility] Comment on above: Urine Oxycodone Cuto ff: < 100 ng/mL = None Detected Screen results shoul d be used for treatment purposes only. Specimen will be kept for 2 weeks, if the sample is adequate. Confirmation testing can be initiated by calling the lab within 2 weeks. [facility] ED Prov Noteon 05-12-2025 ED Prov Note Normal [facility] Glucose (Bld) [Mass/Vol]on 0 05-12-2025 Glucose [Mass/Vol] 179 mg/dL High 65 - 99 mg/dL [facility] Interpretation and review of laboratory results Abnormal [facility] Glucose [Mass/Vol] 120 mg/dL High 65 - 99 mg/dL [facility] Interpretation and review of laboratory results Abnormal [facility] Glucose [Mass/Vol] 111 mg/dL High 65 - 99 mg/dL [facility] Interpretation and review of laboratory results Abnormal [facility] Glucose [Mass/Vol] 99 mg/dL 65 - 99 mg/dL [facility] Interpretation and review of laboratory results Normal [facility] H AND Mike 05-12-2025 H AND P Normal [facility] MAGNESIUM LEVELon 05-12-2025 Magnesium [Mass/Vol] 1.8 mg/dL Normal 1.6-2.4 [facility] Comment on above: Performed By: #### 4 6109 #### LAB [address] [place], [place] [address] Jack Mendoza M.D. [id number] MRSA DNA AMPLIFIED PROBEon 0 05-12-2025 MRSA DNA AMPLIFIED PROBE Not detected Normal Not Detected, MRSA NEGATIVE [facility] Comment on above: Performed By: #### 4 8061 ####[facility] [place] [address] Venancio Richardson M.D. [id number] Magnesium Levelon 05-12-2025 Magnesium [Mass/Vol] 1.8 mg/dL 1.6 - 2 .4 mg/dL [facility] NT PRO BNPon 05-12-2025 Natriuretic peptide B (Bld) [Mass/Vol] 91 pg/mL Normal 0-300 [facility] Comment on above: Order Comment: Pride Study Cut-offsRule In:< /= 50 Years >450 pg/mL51 Years - 75 Years >900 pg/mL76 Years - 99 Years >1800 pg/mLRule Out:All patients <300 pg/mL Performed By: #### 4 7395 #### LAB [address] [place], [place] [address] Jack Mendoza M.D. [id number] NT Pro BNPon 05-12-2025 Natriuretic peptide.B prohormone N-Terminal [Mass/Vol] 91 pg/mL 0 - 300 pg/mL [facility] Natriuretic peptide.B prohor randi N-Terminal [Mass/Vol]on 05-12-2025 Pride Study Cut-offs Rule In: < /= 50 Years >450 pg/mL 51 Years - 75 Years >900 pg/mL 76 Years - 99 Years >1800 pg/mL Rule Out: All patients <300 pg/mL [facility] No Panel Informationon 05-12 Interpretation and review of laboratory results Normal [facility] POC GLUCOSE - [facility] 025 Glucose [Mass/Vol] 179 mg/dL High 65-99 [facility] Glucose [Mass/Vol] 120 mg/dL High 65-99 [facility] Glucose [Mass/Vol] 111 mg/dL High 65-99 [facility] Glucose [Mass/Vol] 99 mg/dL Normal 65-99 [facility] WOUND AEROBIC AND ANAEROBIC CULTUREon 05-12-2025 WOUND AEROBIC AND ANAEROBIC CULTURE CULTURE No Anaerobic Growth after 5 days CORYNEBACTERIUM SPECIES Few Growth (4-10 colonies per plate) Corynebacterium species, not JK GRAM STAIN RESULT Many WBC Many RBC Few Gram Negative Bacilli Few Gram Positive Bacilli Abnormal [facility] Comment on above: Performed By: #### 4 4287 ####[facility] [address] [place], [place] [id number] Venancio Richardson M.D. [id number] BLOOD CULTURE AEROBIC/ANAERO BICon 05-11-2025 BLOOD CULTURE AEROBIC/ANAEROBIC BLOOD CULTURE No Growth after 5 days Normal [facility] Comment on above: Performed By: #### 4 4014 ####[facility] [address] [place] [address] Venancio Richardson M.D. [id number] CBC Auto Differentialon 04-23 Erythrocyte distribution width (RBC) [Entitic vol] 17.2 % High 11.6 - 14.8 % [facility] Hematocrit (Bld) [Volume fraction] 38.9 % Low 41.0 - 53.0 % [facility] Hemoglobin (Bld) [Mass/Vol] 11.5 g/dL Low 13.5 - 17.5 g/dL [facility] MCH (RBC) [Entitic mass] 21.1 pg Low 26.0 - 34.0 pg [facility] MCHC (RBC) [Mass/Vol] 29.6 g/dL Low 31.0 - 37.0 g/dL [facility] MCV (RBC) [Entitic vol] 71.2 fL Low 80.0 - 100.0 fL [facility] Nucleated RBC (Bld) [#/Vol] 0 10*3/uL [facility] Nucleated RBC/100 WBC (Bld) [Ratio] 0 % [facility] Platelets (Bld) [#/Vol] 124 10*3/uL Low [facility] RBC (Bld) [#/Vol] 5.46 10*6/uL [facility] WBC (Bld) [#/Vol] 4.46 10*3/uL Low [facility] CBC WITH AUTO DIFFERENTIALon 05-11-2025 AUTO NRBC 0.0 % Normal [facility] Comment on above: Performed By: #### L [id number] #### LAB [address] [place], [place] [address] Jack Mendoza M.D. [id number] AUTO NRBC ABS COUNT 0.00 K/mcL Normal 0.00-0.00 [facility] Comment on above: Performed By: #### L [id number] ####[facility] [address] [place], [place] [address] Jack Mendoza M.D. [id number] Erythrocyte distribution width (RBC) [Ratio] 17.2 % High 11.6-14.8 [facility] Comment on above: Performed By: #### L [id number] #### LAB [address] [place], [place] [address] Jack Mendoza M.D. [id number] Hematocrit (Bld) [Volume fraction] 38.9 % Low 41.0-53.0 [facility] Comment on above: Performed By: #### L [id number] #### LAB [address] [place] [address] Jack Mendoza M.D. [id number] Hemoglobin (Bld) [Mass/Vol] 11.5 g/dL Low 13.5-17.5 [facility] Comment on above: Performed By: #### L [id number] #### LAB [address] [place] [address] Jack Mendoza M.D. [id number] MCH (RBC) [Entitic mass] 21.1 pg Low 26.0-34.0 [facility] Comment on above: Performed By: #### L [id number] #### LAB [address] [place] [address] Jack Mendoza M.D. [id number] MCV (RBC) [Entitic vol] 71.2 fL Low 80.0-100.0 [facility] Comment on above: Performed By: #### L [id number] #### LAB [address] [place] [address] Jack Mendoza M.D. [id number] MEAN CORPUSCULAR HEMOGLOBIN CONC 29.6 g/dL Low 31.0-37.0 [facility] Comment on above: Performed By: #### L [id number] #### LAB [address] [place] [address] Jack Mendoza M.D. [id number] Platelets (Bld) [#/Vol] 124 10*3/uL Low 150-400 [facility] Comment on above: Performed By: #### L [id number] #### LAB [address] [place] [address] Jack Mendoza M.D. [id number] RBC (Bld) [#/Vol] 5.46 10*6/uL Normal 4.50-5.90 [facility] Comment on above: Performed By: #### L [id number] #### LAB [address] [place] [address] Jack Mendoza M.D. [id number] WBC (Bld) [#/Vol] 4.46 10*3/uL Low 4.50-11.00 [facility] Comment on above: Performed By: #### L [id number] #### LAB [address] [place] [id number] Jack Mendoza M.D. [id number] CBC and Diff Morphologyon Acanthocytes LM Ql (Bld) Few [facility] Ovalocytes LM Ql (Bld) Moderate [facility] Platelets LM Ql (Bld) Decreased Abnormal Normal [facility] Polychromasia LM Ql (Bld) Few [facility] RBC morphology finding Nom (Bld) See Comment [facility] Comment on above: RBC Indices confirme d with manual peripheral smear review. Target cells LM Ql (Bld) Few [facility] COMPREHENSIVE METABOLIC PANE Ras 05-11-2025 Albumin [Mass/Vol] 3.4 g/dL Normal 3.2-5.2 [facility] Comment on above: Order Comment: [facility] has implemented the eGFR calculation approach that does not have a coefficient for race that conforms to the NKF-ASN Task Force Recommendations. Performed By: #### 4 6126 #### LAB [address] [place] [address] Jack Mendoza M.D. [id number] ALP [Catalytic activity/Vol] 83 U/L Normal 40-150 [facility] Comment on above: Order Comment: [facility] has implemented the eGFR calculation approach that does not have a coefficient for race that conforms to the NKF-ASN Task Force Recommendations. Performed By: #### 4 6126 #### LAB [address] [place] [address] Jack Mendoza M.D. [id number] ALT [Catalytic activity/Vol] 16 U/L Normal 0-50 U/L [facility] Comment on above: Order Comment: [facility] has implemented the eGFR calculation approach that does not have a coefficient for race that conforms to the NKF-ASN Task Force Recommendations. Performed By: #### 4 6126 #### LAB [address] [place] [address] Jack Mendoza M.D. [id number] Anion gap [Moles/Vol] 14 mmol/L Normal 10-20 [facility] Comment on above: Order Comment: [facility] has implemented the eGFR calculation approach that does not have a coefficient for race that conforms to the NKF-ASN Task Force Recommendations. Performed By: #### 4 6126 #### LAB [address] [place] [address] Jack Mendoza M.D. [id number] AST [Catalytic activity/Vol] 31 U/L Normal 0-50 U/L [facility] Comment on above: Order Comment: [facility] has implemented the eGFR calculation approach that does not have a coefficient for race that conforms to the NKF-ASN Task Force Recommendations. Performed By: #### 4 6126 #### LAB [address] [place] [address] Jack Mendoza M.D. [id number] Bilirubin [Mass/Vol] 0.8 mg/dL Normal 0.0-1.3 [facility] Comment on above: Order Comment: [facility] has implemented the eGFR calculation approach that does not have a coefficient for race that conforms to the NKF-ASN Task Force Recommendations. Performed By: #### 4 6126 #### LAB [address] [place] [address] Jack Mendoza M.D. [id number] Calcium [Mass/Vol] 8.8 mg/dL Normal 8.4-10.2 [facility] Comment on above: Order Comment: [facility] has implemented the eGFR calculation approach that does not have a coefficient for race that conforms to the NKF-ASN Task Force Recommendations. Performed By: #### 4 6126 #### LAB [address] [place] [id number] Jack Mendoza M.D. [id number] Chloride [Moles/Vol] 98 mmol/L Normal 98-108 [facility] Comment on above: Order Comment: [facility] has implemented the eGFR calculation approach that does not have a coefficient for race that conforms to the NKF-ASN Task Force Recommendations. Performed By: #### 4 6126 #### LAB [address] [place], [place] [address] Jack Mendoza M.D. [id number] Creatinine [Mass/Vol] 0.66 mg/dL Normal 0.50-1.30 [facility] Comment on above: Order Comment: [facility] has implemented the eGFR calculation approach that does not have a coefficient for race that conforms to the NKF-ASN Task Force Recommendations. Performed By: #### 4 6126 #### LAB [address] [place] [address] Jack Mendoza M.D. [id number] EGFR 109 mL/min/1.73 m2 Normal >=60 [facility] Comment on above: Order Comment: [facility] has implemented the eGFR calculation approach that does not have a coefficient for race that conforms to the NKF-ASN Task Force Recommendations. Result Comment: Ashley mated GFR was calculated using the 2020 CKD-EPI creatinine equation. Performed By: #### 4 6126 #### LAB [address] [place] [address] Jack Mendoza M.D. [id number] Glucose [Mass/Vol] 96 mg/dL Normal 65-99 [facility] Comment on above: Order Comment: [facility] has implemented the eGFR calculation approach that does not have a coefficient for race that conforms to the NKF-ASN Task Force Recommendations. Performed By: #### 4 6126 #### LAB [address] [place] [address] Jack Mendoza M.D. [id number] HCO3 (Bld) [Moles/Vol] 26 mmol/L Normal 21-32 [facility] Comment on above: Order Comment: [facility] has implemented the eGFR calculation approach that does not have a coefficient for race that conforms to the NKF-ASN Task Force Recommendations. Performed By: #### 4 6126 #### LAB [address] [place] [address] Jack Mendoza M.D. [id number] Potassium [Moles/Vol] 3.9 mmol/L Normal 3.5-5.1 [facility] Comment on above: Order Comment: [facility] has implemented the eGFR calculation approach that does not have a coefficient for race that conforms to the NKF-ASN Task Force Recommendations. Performed By: #### 4 6126 #### LAB [address] [place], [place] [address] Jack Mendoza M.D. [id number] Protein [Mass/Vol] 7.8 g/dL Normal 6.0-8.0 [facility] Comment on above: Order Comment: [facility] has implemented the eGFR calculation approach that does not have a coefficient for race that conforms to the NKF-ASN Task Force Recommendations. Performed By: #### 4 6126 #### LAB [address] [place] [address] Jack Mendoza M.D. [id number] Sodium [Moles/Vol] 134 mmol/L Low 135-145 [facility] Comment on above: Order Comment: [facility] has implemented the eGFR calculation approach that does not have a coefficient for race that conforms to the NKF-ASN Task Force Recommendations. Performed By: #### 4 6126 #### LAB [address] [place] [address] Jack Mendoza M.D. [id number] Urea nitrogen [Mass/Vol] 16 mg/dL Normal 8-25 [facility] Comment on above: Order Comment: [facility] has implemented the eGFR calculation approach that does not have a coefficient for race that conforms to the NKF-ASN Task Force Recommendations. Performed By: #### 4 6126 #### LAB [address] [place] [address] Jack Mendoza M.D. [id number] Urea nitrogen/Creatinine [Mass ratio] 24.2 mg/mg High 10.0-20.0 [facility] Comment on above: Order Comment: [facility] has implemented the eGFR calculation approach that does not have a coefficient for race that conforms to the NKF-ASN Task Force Recommendations. Performed By: #### 4 6126 #### LAB [address] [place], [place] [address] Jack Mendoza M.D. [id number] Comprehensive metabolic 2000 panelon 05-11-2025 Albumin [Mass/Vol] 3.4 g/dL 3.2 - 5.2 g/dL [facility] ALP [Catalytic activity/Vol] 83 U/L 40 - 150 U/L [facility] ALT [Catalytic activity/Vol] 16 U/L 0 - 50 U/L [facility] Anion gap [Moles/Vol] 14 mmol/L 10 - 20 mmol/L [facility] AST [Catalytic activity/Vol] 31 U/L 0 - 50 U/L [facility] Bilirubin [Mass/Vol] 0.8 mg/dL 0.0 - 1 .3 mg/dL [facility] Calcium [Mass/Vol] 8.8 mg/dL 8.4 - 10. 2 mg/dL [facility] Chloride [Moles/Vol] 98 mmol/L 98 - 10 8 mmol/L [facility] Creatinine [Mass/Vol] 0.66 mg/dL 0.50 - 1.30 mg/dL [facility] GFR/1.73 sq M.predicted CKD-EPI (S/P/Bld) [Vol rate/Area] 109 - PINF [facility] Comment on above: Estimated GFR was ca lculated using the 2020 CKD-EPI creatinine equation. Glucose [Mass/Vol] 96 mg/dL 65 - 99 mg/dL [facility] HCO3 [Moles/Vol] 26 mmol/L 21 - 32 mmol/L [facility] Interpretation and review of laboratory results Abnormal [facility] Potassium [Moles/Vol] 3.9 mmol/L 3.5 - 5.1 mmol/L [facility] Protein [Mass/Vol] 7.8 g/dL 6.0 - 8.0 g/dL [facility] Sodium [Moles/Vol] 134 mmol/L Low 135 - 145 mmol/L [facility] Urea nitrogen [Mass/Vol] 16 mg/dL 8 - 25 mg/dL [facility] Urea nitrogen/Creatinine [Mass ratio] 24.2 mg/mg High 10.0 - 20.0 [facility] has implemented the eGFR calculation approach that does not have a coefficient for race that conforms to the NKF-ASN Task Force Recommendations. [facility] LACTIC ACID, PLASMAon 2024 LACTIC ACID, PLASMA 1.9 mmol/L Normal 0.6-2.0 [facility] Comment on above: Performed By: #### 4 6053 #### LAB [address] [place] [address] Jack Mendoza M.D. [id number] Lactate [Moles/Vol]on 2024 Interpretation and review of laboratory results Normal [facility] Lactic Acidon 05-11-2025 Lactate [Moles/Vol] 1.9 mmol/L 0.6 - 2. 0 mmol/L [facility] MANUAL DIFFERENTIALon 2024 BASOPHILS - ABS (DIFF) 0.00 K/mcL Normal 0.00-0.30 [facility] Comment on above: Performed By: #### 4 5476 #### LAB [address] [place] [address] Jack Mendoza M.D. [id number] BASOPHILS - REL (DIFF) 0.0 % [facility] Comment on above: Performed By: #### 4 5456 #### LAB [address] [place] [address] Jack Mendoza M.D. [id number] EOSINOPHILS - ABS (DIFF) 0.13 K/mcL Normal 0.00-0.50 [facility] Comment on above: Performed By: #### 4 5456 #### LAB [address] [place] [address] Jack Mendoza M.D. [id number] EOSINOPHILS - REL (DIFF) 3.0 % [facility] Comment on above: Performed By: #### 4 5102 #### LAB [address] [place] [address] Jack Mendoza M.D. [id number] LYMPHOCYTE ATYPICAL - REL (DIFF) 1.0 % [facility] Comment on above: Performed By: #### 4 1303 #### LAB [address] [place] [address] Jack Mendoza M.D. [id number] LYMPHOCYTES - ABS (DIFF) 0.49 K/mcL Low 0.90-4.00 [facility] Comment on above: Performed By: #### 4 5456 #### LAB [address] [place] [address] Jack Mendoza M.D. [id number] LYMPHOCYTES - REL (DIFF) 10.0 % Normal [facility] Comment on above: Performed By: #### 4 5456 #### LAB [address] [place] [address] Jack Mendoza M.D. [id number] MONOCYTES - ABS (DIFF) 0.13 K/mcL Low 0.30-0.90 [facility] Comment on above: Performed By: #### 4 5456 #### LAB [address] [place] [address] Jack Mendoza M.D. [id number] MONOCYTES - REL (DIFF) 3.0 % Normal [facility] Comment on above: Performed By: #### 4 5456 #### LAB [address] [place] [address] Jack Mendoza M.D. [id number] NEUTROPHILS - ABS (DIFF) 3.70 K/mcL Normal 1.70-7.00 [facility] Comment on above: Performed By: #### 4 5456 #### LAB [address] [place] [address] Jack Mendoza M.D. [id number] NEUTROPHILS - REL (DIFF) 83.0 % [facility] Comment on above: Performed By: #### 4 5456 #### LAB [address] [place] [address] Jack Mendoza M.D. [id number] MORPHOLOGYon 05-11-2025 ACANTHOCYTES Few Normal [facility] Comment on above: Performed By: #### L [id number] #### LAB [address] [place] [address] Jack Mendoza M.D. [id number] OVAL SCAN Moderate Normal [facility] Comment on above: Performed By: #### L [id number] #### LAB [address] [place] [address] Jack Mendoza M.D. [id number] PLATELET ESTIMATE Decreased Abnormal Normal [facility] Comment on above: Performed By: #### L [id number] ####[facility] [address] [place], [place] [address] Jack Mendoza M.D. [id number] POLY SCAN Few [facility] Comment on above: Performed By: #### L [id number] ####[facility] LAB [address] [place] [address] Jack Mendoza M.D. [id number] RBC MORPH SCAN See Comment Normal [facility] Comment on above: Result Comment: RBC Indices confirmed with manual peripheral smear review. Performed By: #### L [id number] ####[facility] [address] [place], [place] [address] Jack Mendoza M.D. [id number] TARGET CELL SCAN Few Normal [facility] Comment on above: Performed By: #### L [id number] ####[facility] LAB [address] [place] [address] Jack Mendoza M.D. [id number] Manual Differential panel (B ld)on 05-11-2025 Basophils (Bld) [#/Vol] 0 10*3/uL [facility] Basophils/100 WBC (Bld) 0 % [facility] Eosinophils (Bld) [#/Vol] 0.13 10*3/uL [facility] Eosinophils/100 WBC (Bld) 3 % [facility] Lymphocytes (Bld) [#/Vol] 0.49 10*3/uL Low [facility] Lymphocytes/100 WBC (Bld) 10 % [facility] Monocytes (Bld) [#/Vol] 0.13 10*3/uL Low [facility] Monocytes/100 WBC (Bld) 3 % [facility] Neutrophils (Bld) [#/Vol] 3.7 10*3/uL [facility] Neutrophils/100 WBC (Bld) 83 % [facility] Variant lymphocytes/100 WBC (Bld) 1 % [facility] No Panel Informationon 05-11 Interpretation and review of laboratory results Abnormal [facility] XR KNEE RIGHT 2 VIEWS (STAND NO)on 05-11-2025 XR KNEE RIGHT 2 VIEWS (STANDARD) Normal [facility] Comment on above: Order Comment: Injur y/Trauma or Illness?:Illness/OtherHow long have you had these symptoms (acute/chronic)?:AcuteReason for exam?:right knee pain and swellingHistory of cancer?:uSurgeries, chemotherapy, or radiation?:uType of Exam?:InitialAdditional signs and symptoms?:. XR Knee - right 2 Viewson No acute osseous abnormality. Workstation ID: [id number] [employer] EXAMINATION: XR KNEE RIGHT 2 VIEWS (STANDARD) [...] joints are maintained. Small suprapatellar joint effusion. [facility] Briana Ramirez MD - 05/11/2025 EXAMINATION: XR [...] No acute osseous abnormality. Workstation ID: [id number] [facility] Radiology Study observation (narrative) [facility] XR Knee - right 2 ViewsOrder ed By: Briana Ramirez on 05-11-2025 [facility] Work Phone: BODY FLUID AEROBIC AND ANAER OBIC CULTUREon 05-09-2025 BODY FLUID AEROBIC AND ANAEROBIC CULTURE CULTURE No Growth after 5 days GRAM STAIN RESULT Moderate WBC Many RBC No Organisms Seen Normal [facility] Comment on above: Order Comment: Yue ered to run at [place] instead of [employer] due to source Performed By: #### 4 0777 #### [facility] [address] [place] [address] Venancio Richardson M.D. [id number] BODY FLUID AEROBIC AND ANAEROBIC CULTURE CULTURE No Growth after 5 days GRAM STAIN RESULT Few WBC Many RBC No Organisms Seen Normal [facility] Comment on above: Performed By: #### 4 4197 #### [facility] [address] [place], [place] [address] Venancio Richardson M.D. [id number] BASIC METABOLIC PANELon 08- Anion gap [Moles/Vol] 11 mmol/L Normal 10-20 [facility] Comment on above: Order Comment: [facility] has implemented the eGFR calculation approach that does not have a coefficient for race that conforms to the NKF-ASN Task Force Recommendations. Performed By: #### 4 6124 #### LAB [address] [place], [place] [address] Jack Mendoza M.D. [id number] Calcium [Mass/Vol] 8.2 mg/dL Low 8.4-10.2 [facility] Comment on above: Order Comment: [facility] has implemented the eGFR calculation approach that does not have a coefficient for race that conforms to the NKF-ASN Task Force Recommendations. Performed By: #### 4 6124 ####[facility] [address] [place], [place] [address] Jack Mendoza M.D. [id number] Chloride [Moles/Vol] 100 mmol/L Normal 98-108 [facility] Comment on above: Order Comment: [facility] has implemented the eGFR calculation approach that does not have a coefficient for race that conforms to the NKF-ASN Task Force Recommendations. Performed By: #### 4 6124 #### LAB [address] [place], [place] [address] Jack Mendoza M.D. [id number] Creatinine [Mass/Vol] 0.51 mg/dL Normal 0.50-1.30 [facility] Comment on above: Order Comment: [facility] has implemented the eGFR calculation approach that does not have a coefficient for race that conforms to the NKF-ASN Task Force Recommendations. Performed By: #### 4 6151 #### LAB [address] [place] [id number] Jack Mendoza M.D. [id number] EGFR 118 mL/min/1.73 m2 Normal >=60 [facility] Comment on above: Order Comment: [facility] has implemented the eGFR calculation approach that does not have a coefficient for race that conforms to the NKF-ASN Task Force Recommendations. Result Comment: Ashley mated GFR was calculated using the 2020 CKD-EPI creatinine equation. Performed By: #### 4 [id number] #### LAB [address] [address] Jack Mendoza M.D. [id number] Glucose [Mass/Vol] 115 mg/dL High 65-99 [facility] Comment on above: Order Comment: [facility] has implemented the eGFR calculation approach that does not have a coefficient for race that conforms to the NKF-ASN Task Force Recommendations. Performed By: #### 4 [id number] #### LAB [address] [address] Jack Mendoza M.D. [id number] HCO3 (Bld) [Moles/Vol] 29 mmol/L Normal 21-32 [facility] Comment on above: Order Comment: [facility] has implemented the eGFR calculation approach that does not have a coefficient for race that conforms to the NKF-ASN Task Force Recommendations. Performed By: #### 4 6124 #### LAB [address] [address] Jack Mendoza M.D. [id number] Potassium [Moles/Vol] 4.1 mmol/L Normal 3.5-5.1 [facility] Comment on above: Order Comment: [facility] has implemented the eGFR calculation approach that does not have a coefficient for race that conforms to the NKF-ASN Task Force Recommendations. Performed By: #### 4 6124 #### LAB [address] [address] Jack Mendoza M.D. [id number] Sodium [Moles/Vol] 136 mmol/L Normal 135-145 [facility] Comment on above: Order Comment: [facility] has implemented the eGFR calculation approach that does not have a coefficient for race that conforms to the NKF-ASN Task Force Recommendations. Performed By: #### 4 6124 #### LAB [address] [place], [place] [address] Jack Mendoza M.D. [id number] Urea nitrogen [Mass/Vol] 12 mg/dL Normal 8-25 [facility] Comment on above: Order Comment: [facility] has implemented the eGFR calculation approach that does not have a coefficient for race that conforms to the NKF-ASN Task Force Recommendations. Performed By: #### 4 6124 #### LAB [address] [place], [place] [address] Jack Mendoza M.D. [id number] Urea nitrogen/Creatinine [Mass ratio] 23.5 mg/mg High 10.0-20.0 [facility] Comment on above: Order Comment: [facility] has implemented the eGFR calculation approach that does not have a coefficient for race that conforms to the NKF-ASN Task Force Recommendations. Performed By: #### 4 6124 #### LAB [address] [place], [place] [address] Jack Mendoza M.D. [id number] Basic metabolic 2000 panelon 04-05-2025 Anion gap [Moles/Vol] 11 mmol/L 10 - 20 mmol/L [facility] Calcium [Mass/Vol] 8.2 mg/dL Low 8.4 - 10. 2 mg/dL [facility] Chloride [Moles/Vol] 100 mmol/L 98 - 10 8 mmol/L [facility] Creatinine [Mass/Vol] 0.51 mg/dL 0.50 - 1.30 mg/dL [facility] GFR/1.73 sq M.predicted CKD-EPI (S/P/Bld) [Vol rate/Area] 118 - PINF [facility] Comment on above: Estimated GFR was ca lculated using the 2020 CKD-EPI creatinine equation. Glucose [Mass/Vol] 115 mg/dL High 65 - 99 mg/dL [facility] HCO3 [Moles/Vol] 29 mmol/L 21 - 32 mmol/L [facility] Interpretation and review of laboratory results Abnormal [facility] Potassium [Moles/Vol] 4.1 mmol/L 3.5 - 5.1 mmol/L [facility] Sodium [Moles/Vol] 136 mmol/L 135 - 145 mmol/L [facility] Urea nitrogen [Mass/Vol] 12 mg/dL 8 - 25 mg/dL [facility] Urea nitrogen/Creatinine [Mass ratio] 23.5 mg/mg High 10.0 - 20.0 [facility] has implemented the eGFR calculation approach that does not have a coefficient for race that conforms to the NKF-ASN Task Force Recommendations. [facility] Anion gap [Moles/Vol] 15 mmol/L 10 - 20 mmol/L [facility] Calcium [Mass/Vol] 8.7 mg/dL 8.4 - 10. 2 mg/dL [facility] Chloride [Moles/Vol] 96 mmol/L Low 98 - 10 8 mmol/L [facility] Creatinine [Mass/Vol] 0.65 mg/dL 0.50 - 1.30 mg/dL [facility] GFR/1.73 sq M.predicted CKD-EPI (S/P/Bld) [Vol rate/Area] 109 - PINF [facility] Comment on above: Estimated GFR was ca lculated using the 2020 CKD-EPI creatinine equation. Glucose [Mass/Vol] 124 mg/dL High 65 - 99 mg/dL [facility] HCO3 [Moles/Vol] 27 mmol/L 21 - 32 mmol/L [facility] Interpretation and review of laboratory results Abnormal [facility] Potassium [Moles/Vol] 4.4 mmol/L 3.5 - 5.1 mmol/L [facility] Sodium [Moles/Vol] 134 mmol/L Low 135 - 145 mmol/L [facility] Urea nitrogen [Mass/Vol] 12 mg/dL 8 - 25 mg/dL [facility] Urea nitrogen/Creatinine [Mass ratio] 18.5 mg/mg 10.0 - 20.0 [facility] has implemented the eGFR calculation approach that does not have a coefficient for race that conforms to the NKF-ASN Task Force Recommendations. [facility] CBC Auto Differentialon 03-22 Basophils (Bld) [#/Vol] 0.01 10*3/uL [facility] Basophils/100 WBC (Bld) 0.3 % [facility] Eosinophils (Bld) [#/Vol] 0.05 10*3/uL [facility] Eosinophils/100 WBC (Bld) 1.6 % [facility] Erythrocyte distribution width (RBC) [Entitic vol] 17.1 % High 11.6 - 14.8 % [facility] Hematocrit (Bld) [Volume fraction] 32.7 % Low 41.0 - 53.0 % [facility] Hemoglobin (Bld) [Mass/Vol] 9.8 g/dL Low 13.5 - 17.5 g/dL [facility] Immature granulocytes (Bld) [#/Vol] 0.01 10*3/uL [facility] Immature granulocytes/100 WBC (Bld) 0.3 % [facility] Comment on above: The IG parameter is the percentage of metamyelocytes, myelocytes and promyelocytes. An immature granulocyte count (IG) of 1% or more suggests the possibility of infection, an IG count of 3% is very likely related to an infection. Lymphocytes (Bld) [#/Vol] 0.5 10*3/uL Low [facility] Lymphocytes/100 WBC (Bld) 15.6 % [facility] MCH (RBC) [Entitic mass] 21.7 pg Low 26.0 - 34.0 pg [facility] MCHC (RBC) [Mass/Vol] 30 g/dL Low 31.0 - 37.0 g/dL [facility] MCV (RBC) [Entitic vol] 72.3 fL Low 80.0 - 100.0 fL [facility] Monocytes (Bld) [#/Vol] 0.25 10*3/uL Low [facility] Monocytes/100 WBC (Bld) 7.8 % [facility] Neutrophils (Bld) [#/Vol] 2.39 10*3/uL [facility] Neutrophils/100 WBC (Bld) 74.4 % [facility] Comment on above: Peripheral smear rev iewed manually Nucleated RBC (Bld) [#/Vol] 0 10*3/uL [facility] Nucleated RBC/100 WBC (Bld) [Ratio] 0 % [facility] Platelet mean volume (Bld) [Entitic vol] 9.3 fL Low 9.4 - 12.4 fL [facility] Platelets (Bld) [#/Vol] 95 10*3/uL Low [facility] RBC (Bld) [#/Vol] 4.52 10*6/uL [facility] WBC (Bld) [#/Vol] 3.21 10*3/uL Low [facility] CBC WITH AUTO DIFFERENTIALon 04-05-2025 AUTO NRBC 0.0 % Normal [facility] Comment on above: Performed By: #### L [id number] #### LAB [address] [place] [address] Jack Mendoza M.D. [id number] AUTO NRBC ABS COUNT 0.00 K/mcL Normal 0.00-0.00 [facility] Comment on above: Performed By: #### L [id number] #### LAB [address] [address] Jack Mendoza M.D. [id number] BASOPHILS ABSOLUTE COUNT 0.01 K/mcL Normal 0.00-0.30 [facility] Comment on above: Performed By: #### L [id number] #### LAB [address] [place] [address] Jack Mendoza M.D. [id number] Basophils/100 WBC (Bld) 0.3 % [facility] Comment on above: Performed By: #### L [id number] #### LAB [address] [place] [address] Jack Mendoza M.D. [id number] Eosinophils (Bld) [#/Vol] 0.05 10*3/uL Normal 0.00-0.50 [facility] Comment on above: Performed By: #### L [id number] #### LAB [address] [place] [address] Jack Mendoza M.D. [id number] Eosinophils/100 WBC (Bld) 1.6 % [facility] Comment on above: Performed By: #### L [id number] #### LAB [address] [place] [address] Jack Mendoza M.D. [id number] Erythrocyte distribution width (RBC) [Ratio] 17.1 % High 11.6-14.8 [facility] Comment on above: Performed By: #### L [id number] #### LAB [address] [place] [address] Jack Mendoza M.D. [id number] Hematocrit (Bld) [Volume fraction] 32.7 % Low 41.0-53.0 [facility] Comment on above: Performed By: #### L [id number] #### LAB [address] [address] Jack Mendoza M.D. [id number] Hemoglobin (Bld) [Mass/Vol] 9.8 g/dL Low 13.5-17.5 [facility] Comment on above: Performed By: #### L [id number] #### LAB [address] [address] Jack Mendoza M.D. [id number] IG ABSOLUTE 0.01 K/mcL Normal 0.00-0.30 [facility] Comment on above: Performed By: #### L [id number] #### LAB [address] [address] Jack Mendoza M.D. [id number] IG PERCENT 0.30 % [facility] Comment on above: Result Comment: The IG parameter is the percentage of metamyelocytes, myelocytes and promyelocytes. An immature granulocyte count (IG) of 1% or more suggests the possibility of infection, an IG count of 3% is very likely related to an infection. Performed By: #### L [id number] #### LAB [address] [address] Jack Mendoza M.D. [id number] Lymphocytes (Bld) [#/Vol] 0.50 10*3/uL Low 0.90-4.00 [facility] Comment on above: Performed By: #### L [id number] #### LAB [address] [address] Jack Mendoza M.D. [id number] Lymphocytes/100 WBC (Bld) 15.6 % [facility] Comment on above: Performed By: #### L [id number] #### LAB [address] [place] [address] Jack Mendoza M.D. [id number] MCH (RBC) [Entitic mass] 21.7 pg Low 26.0-34.0 [facility] Comment on above: Performed By: #### L [id number] #### LAB [address] [address] Jack Mendoza M.D. [id number] MCV (RBC) [Entitic vol] 72.3 fL Low 80.0-100.0 [facility] Comment on above: Performed By: #### L [id number] #### LAB [address] [address] Jack Mendoza M.D. [id number] MEAN CORPUSCULAR HEMOGLOBIN CONC 30.0 g/dL Low 31.0-37.0 [facility] Comment on above: Performed By: #### L [id number] #### LAB [address] [address] Jack Mendoza M.D. [id number] Monocytes (Bld) [#/Vol] 0.25 10*3/uL Low 0.30-0.90 [facility] Comment on above: Performed By: #### L [id number] #### LAB [address] [address] Jack Mendoza M.D. [id number] Monocytes/100 WBC (Bld) 7.8 % Normal [facility] Comment on above: Performed By: #### L [id number] #### LAB [address] [address] Jack Mendoza M.D. [id number] NEUTROPHILS ABSOLUTE COUNT 2.39 K/mcL Normal 1.70-7.00 [facility] Comment on above: Performed By: #### L [id number] #### LAB [address] [address] Jack Mendoza M.D. [id number] Neutrophils/100 WBC (Bld) 74.4 % Normal [facility] Comment on above: Result Comment: Tiffany pheral smear reviewed manually Performed By: #### L [id number] #### LAB [address] [place] [address] Jack Mendoza M.D. [id number] Platelet mean volume (Bld) [Entitic vol] 9.3 fL Low 9.4-12.4 [facility] Comment on above: Performed By: #### L [id number] ####[facility] LAB [address] [address] Jack Mendoza M.D. [id number] Platelets (Bld) [#/Vol] 95 10*3/uL Low 150-400 [facility] Comment on above: Performed By: #### L [id number] ####[facility] LAB [address] [address] Jack Mendoza M.D. [id number] RBC (Bld) [#/Vol] 4.52 10*6/uL Normal 4.50-5.90 [facility] Comment on above: Performed By: #### L [id number] ####[facility] LAB [address] [address] Jack Mendoza M.D. [id number] WBC (Bld) [#/Vol] 3.21 10*3/uL Low 4.50-11.00 [facility] Comment on above: Performed By: #### L [id number] ####[facility] LAB [address] [address] Jack Mendoza M.D. [id number] CBC and Diff Morphologyon Ovalocytes LM Ql (Bld) Moderate [facility] Platelets LM Ql (Bld) Decreased Abnormal Normal [facility] Polychromasia LM Ql (Bld) Few [facility] RBC morphology finding Nom (Bld) See Comment [facility] Comment on above: RBC Indices confirme d with manual peripheral smear review. Disch Summon 04-05-2025 Disch Summ Normal [facility] LACTIC ACID, PLASMAon 2024 LACTIC ACID, PLASMA 0.7 mmol/L Normal 0.6-2.0 [facility] Comment on above: Performed By: #### 4 [id number] ####[facility] LAB [address] [address] Jack Mendoza M.D. [id number] Lactate [Moles/Vol]on 2024 Interpretation and review of laboratory results Normal [facility] Lactic Acid, Plasmaon 2024 Lactate [Moles/Vol] 0.7 mmol/L 0.6 - 2. 0 mmol/L [facility] MORPHOLOGYon 04-05-2025 OVAL SCAN Moderate Normal [facility] Comment on above: Performed By: #### L [id number] ####[facility] LAB [address] [address] Jack Mendoza M.D. [id number] PLATELET ESTIMATE Decreased Abnormal Normal [facility] Comment on above: Performed By: #### L [id number] ####[facility] LAB [address] [address] Jack Mendoza M.D. [id number] POLY SCAN Few Normal [facility] Comment on above: Performed By: #### L [id number] ####[facility] LAB [address] [address] Jack Mendoza M.D. [id number] RBC MORPH SCAN See Comment Normal [facility] Comment on above: Result Comment: RBC Indices confirmed with manual peripheral smear review. Performed By: #### L [id number] ####[facility] LAB [address] [address] Jack Mendoza M.D. [id number] No Panel Informationon 04-05 Interpretation and review of laboratory results Abnormal [facility] XR CHEST PA/APon 04-05-2025 XR CHEST PA/AP [facility] Comment on above: Order Comment: Injur y/Trauma or Illness?:Illness/OtherHow long have you had these symptoms (acute/chronic)?:AcuteReason for exam?:Respiratory failureHistory of cancer?:uSurgeries, chemotherapy, or radiation?:uType of Exam?:InitialAdditional signs and symptoms?:. BASIC METABOLIC PANELon 03-22 Anion gap [Moles/Vol] 15 mmol/L Normal - [facility] Comment on above: Order Comment: [facility] has implemented the eGFR calculation approach that does not have a coefficient for race that conforms to the NKF-ASN Task Force Recommendations. Performed By: #### 4 6124 ####[facility] LAB [address] [address] Jack Mendoza M.D. [id number] Calcium [Mass/Vol] 8.7 mg/dL Normal 8.4-10.2 [facility] Comment on above: Order Comment: [facility] has implemented the eGFR calculation approach that does not have a coefficient for race that conforms to the NKF-ASN Task Force Recommendations. Performed By: #### 4 6124 #### LAB [address] [address] Jack Mendoza M.D. [id number] Chloride [Moles/Vol] 96 mmol/L Low 98-108 [facility] Comment on above: Order Comment: [facility] has implemented the eGFR calculation approach that does not have a coefficient for race that conforms to the NKF-ASN Task Force Recommendations. Performed By: #### 4 6124 #### LAB [address] [address] Jack Mendoza M.D. [id number] Creatinine [Mass/Vol] 0.65 mg/dL Normal 0.50-1.30 [facility] Comment on above: Order Comment: [facility] has implemented the eGFR calculation approach that does not have a coefficient for race that conforms to the NKF-ASN Task Force Recommendations. Performed By: #### 4 6124 #### LAB [address] [address] Jack Mendoza M.D. [id number] EGFR 109 mL/min/1.73 m2 Normal >=60 [facility] Comment on above: Order Comment: [facility] has implemented the eGFR calculation approach that does not have a coefficient for race that conforms to the NKF-ASN Task Force Recommendations. Result Comment: Ashley mated GFR was calculated using the 2020 CKD-EPI creatinine equation. Performed By: #### 4 6124 #### LAB [address] [address] Jack Mendoza M.D. [id number] Glucose [Mass/Vol] 124 mg/dL High 65-99 [facility] Comment on above: Order Comment: [facility] has implemented the eGFR calculation approach that does not have a coefficient for race that conforms to the NKF-ASN Task Force Recommendations. Performed By: #### 4 6124 #### LAB [address] [address] Jack Mendoza M.D. [id number] HCO3 (Bld) [Moles/Vol] 27 mmol/L Normal 21-32 [facility] Comment on above: Order Comment: [facility] has implemented the eGFR calculation approach that does not have a coefficient for race that conforms to the NKF-ASN Task Force Recommendations. Performed By: #### 4 6124 #### LAB [address] [address] Jack Mendoza M.D. [id number] Potassium [Moles/Vol] 4.4 mmol/L Normal 3.5-5.1 [facility] Comment on above: Order Comment: [facility] has implemented the eGFR calculation approach that does not have a coefficient for race that conforms to the NKF-ASN Task Force Recommendations. Performed By: #### 4 6124 #### LAB [address] [address] Jack Mendoza M.D. [id number] Sodium [Moles/Vol] 134 mmol/L Low 135-145 [facility] Comment on above: Order Comment: [facility] has implemented the eGFR calculation approach that does not have a coefficient for race that conforms to the NKF-ASN Task Force Recommendations. Performed By: #### 4 6124 #### LAB [address] [address] Jack Mendoza M.D. [id number] Urea nitrogen [Mass/Vol] 12 mg/dL Normal 8-25 [facility] Comment on above: Order Comment: [facility] has implemented the eGFR calculation approach that does not have a coefficient for race that conforms to the NKF-ASN Task Force Recommendations. Performed By: #### 4 6124 #### LAB [address] [address] Jack Mendoza M.D. [id number] Urea nitrogen/Creatinine [Mass ratio] 18.5 mg/mg Normal 10.0-20.0 [facility] Comment on above: Order Comment: [facility] has implemented the eGFR calculation approach that does not have a coefficient for race that conforms to the NKF-ASN Task Force Recommendations. Performed By: #### 4 6124 ####[facility] LAB [address] [place] [address] Jack Mendoza M.D. [id number] CBC Auto Differentialon 03-22 Basophils (Bld) [#/Vol] 0.02 10*3/uL [facility] Basophils/100 WBC (Bld) 0.4 % [facility] Eosinophils (Bld) [#/Vol] 0.13 10*3/uL [facility] Eosinophils/100 WBC (Bld) 2.8 % [facility] Erythrocyte distribution width (RBC) [Entitic vol] 17.2 % High 11.6 - 14.8 % [facility] Hematocrit (Bld) [Volume fraction] 37.6 % Low 41.0 - 53.0 % [facility] Hemoglobin (Bld) [Mass/Vol] 11.2 g/dL Low 13.5 - 17.5 g/dL [facility] Immature granulocytes (Bld) [#/Vol] 0.02 10*3/uL [facility] Immature granulocytes/100 WBC (Bld) 0.4 % [facility] Comment on above: The IG parameter is the percentage of metamyelocytes, myelocytes and promyelocytes. An immature granulocyte count (IG) of 1% or more suggests the possibility of infection, an IG count of 3% is very likely related to an infection. Interpretation and review of laboratory results Abnormal [facility] Lymphocytes (Bld) [#/Vol] 1.13 10*3/uL [facility] Lymphocytes/100 WBC (Bld) 24 % [facility] MCH (RBC) [Entitic mass] 21.5 pg Low 26.0 - 34.0 pg [facility] MCHC (RBC) [Mass/Vol] 29.8 g/dL Low 31.0 - 37.0 g/dL [facility] MCV (RBC) [Entitic vol] 72.2 fL Low 80.0 - 100.0 fL [facility] Monocytes (Bld) [#/Vol] 0.42 10*3/uL [facility] Monocytes/100 WBC (Bld) 8.9 % [facility] Neutrophils (Bld) [#/Vol] 2.99 10*3/uL [facility] Neutrophils/100 WBC (Bld) 63.5 % [facility] Nucleated RBC (Bld) [#/Vol] 0 10*3/uL [facility] Nucleated RBC/100 WBC (Bld) [Ratio] 0 % [facility] Platelet mean volume (Bld) [Entitic vol] 9.9 fL 9.4 - 12.4 fL [facility] Platelets (Bld) [#/Vol] 124 10*3/uL Low [facility] RBC (Bld) [#/Vol] 5.21 10*6/uL [facility] WBC (Bld) [#/Vol] 4.71 10*3/uL [facility] CBC WITH AUTO DIFFERENTIALon 04-04-2025 AUTO NRBC 0.0 % [facility] Comment on above: Performed By: #### L [id number] #### LAB [address] [place] [address] Jack Mendoza M.D. [id number] AUTO NRBC ABS COUNT 0.00 K/mcL Normal 0.00-0.00 [facility] Comment on above: Performed By: #### L [id number] #### LAB [address] [place] [address] Jack Mendoza M.D. [id number] BASOPHILS ABSOLUTE COUNT 0.02 K/mcL Normal 0.00-0.30 [facility] Comment on above: Performed By: #### L [id number] #### LAB [address] [address] Jack Mendoza M.D. [id number] Basophils/100 WBC (Bld) 0.4 % [facility] Comment on above: Performed By: #### L [id number] #### LAB [address] [place] [address] Jack Mendoza M.D. [id number] Eosinophils (Bld) [#/Vol] 0.13 10*3/uL Normal 0.00-0.50 [facility] Comment on above: Performed By: #### L [id number] #### LAB [address] [address] Jack Mendoza M.D. [id number] Eosinophils/100 WBC (Bld) 2.8 % Normal [facility] Comment on above: Performed By: #### L [id number] #### LAB [address] [address] Jack Mendoza M.D. [id number] Erythrocyte distribution width (RBC) [Ratio] 17.2 % High 11.6-14.8 [facility] Comment on above: Performed By: #### L [id number] #### LAB [address] [address] Jack Mendoza M.D. [id number] Hematocrit (Bld) [Volume fraction] 37.6 % Low 41.0-53.0 [facility] Comment on above: Performed By: #### L [id number] #### LAB [address] [address] Jack Mendoza M.D. [id number] Hemoglobin (Bld) [Mass/Vol] 11.2 g/dL Low 13.5-17.5 [facility] Comment on above: Performed By: #### L [id number] #### LAB [address] [address] Jack Mendoza M.D. [id number] IG ABSOLUTE 0.02 K/mcL Normal 0.00-0.30 [facility] Comment on above: Performed By: #### L [id number] #### LAB [address] [address] Jack Mendoza M.D. [id number] IG PERCENT 0.40 % Normal [facility] Comment on above: Result Comment: The IG parameter is the percentage of metamyelocytes, myelocytes and promyelocytes. An immature granulocyte count (IG) of 1% or more suggests the possibility of infection, an IG count of 3% is very likely related to an infection. Performed By: #### L [id number] #### LAB [address] [place] [address] Jack Mendoza M.D. [id number] Lymphocytes (Bld) [#/Vol] 1.13 10*3/uL Normal 0.90-4.00 [facility] Comment on above: Performed By: #### L [id number] #### LAB [address] [address] Jack Mendoza M.D. [id number] Lymphocytes/100 WBC (Bld) 24.0 % Normal [facility] Comment on above: Performed By: #### L [id number] ####[facility] LAB [address] [address] Jack Mendoza M.D. [id number] MCH (RBC) [Entitic mass] 21.5 pg Low 26.0-34.0 [facility] Comment on above: Performed By: #### L [id number] #### LAB [address] [address] Jack Mendoza M.D. [id number] MCV (RBC) [Entitic vol] 72.2 fL Low 80.0-100.0 [facility] Comment on above: Performed By: #### L [id number] #### LAB [address] [address] Jack Mendoza M.D. [id number] MEAN CORPUSCULAR HEMOGLOBIN CONC 29.8 g/dL Low 31.0-37.0 [facility] Comment on above: Performed By: #### L [id number] #### LAB [address] [address] Jack Mendoza M.D. [id number] Monocytes (Bld) [#/Vol] 0.42 10*3/uL Normal 0.30-0.90 [facility] Comment on above: Performed By: #### L [id number] #### LAB [address] [address] Jack Mendoza M.D. [id number] Monocytes/100 WBC (Bld) 8.9 % [facility] Comment on above: Performed By: #### L [id number] #### LAB [address] [address] Jack Mendoza M.D. [id number] NEUTROPHILS ABSOLUTE COUNT 2.99 K/mcL Normal 1.70-7.00 [facility] Comment on above: Performed By: #### L [id number] #### LAB [address] [address] Jack Mendoza M.D. [id number] Neutrophils/100 WBC (Bld) 63.5 % Normal [facility] Comment on above: Performed By: #### L [id number] ####[facility] LAB [address] [address] Jack Mendoza M.D. [id number] Platelet mean volume (Bld) [Entitic vol] 9.9 fL Normal 9.4-12.4 [facility] Comment on above: Performed By: #### L [id number] #### LAB [address] [address] Jack Mendoza M.D. [id number] Platelets (Bld) [#/Vol] 124 10*3/uL Low 150-400 [facility] Comment on above: Performed By: #### L [id number] ####[facility] LAB [address] [address] Jack Mendoza M.D. [id number] RBC (Bld) [#/Vol] 5.21 10*6/uL Normal 4.50-5.90 [facility] Comment on above: Performed By: #### L [id number] ####[facility] LAB [address] [address] Jack Mendoza M.D. [id number] WBC (Bld) [#/Vol] 4.71 10*3/uL Normal 4.50-11.00 [facility] Comment on above: Performed By: #### L [id number] #### LAB [address] [address] Jack Mendoza M.D. [id number] Glucose (Bld) [Mass/Vol]on 04-04-2025 Glucose [Mass/Vol] 143 mg/dL High 65 - 99 mg/dL [facility] Interpretation and review of laboratory results Abnormal [facility] POC ARTERIAL BLOOD GAS PANEL -ERIKA Ortega 04-04-2025 [id number] 101.3 mm Hg Normal [facility] Comment on above: Order Comment: Criti drea result acted upon time of test. Test performed at bedside. BASE EXCESS, ARTERIAL 0.9 Normal -2.0-2.0 [facility] Comment on above: Order Comment: Criti drea result acted upon time of test. Test performed at bedside. CALCIUM IONIZED 4.7 mg/dL Normal 4.5-5.3 [facility] Comment on above: Order Comment: Criti drea result acted upon time of test. Test performed at bedside. CARBOXYHEMOGLOBIN 1.7 % of total Hb High <=1.5 [facility] Comment on above: Order Comment: Criti drea result acted upon time of test. Test performed at bedside. Result Comment: Refe dilia Ranges:Suburb Non-smokers: <1.5%Smokers: 1.5-5.0%Heavy Smokers: 5.0-9.0% Chloride [Moles/Vol] 97 mmol/L Low 98-108 [facility] Comment on above: Order Comment: Criti drea result acted upon time of test. Test performed at bedside. FIO2 44 Normal [facility] Comment on above: Order Comment: Criti drea result acted upon time of test. Test performed at bedside. Glucose [Mass/Vol] 126 mg/dL High 65-99 [facility] Comment on above: Order Comment: Criti drea result acted upon time of test. Test performed at bedside. HCO3 (Bld) [Moles/Vol] 29.6 mmol/L High 22.0-26.0 [facility] Comment on above: Order Comment: Criti drea result acted upon time of test. Test performed at bedside. Hematocrit (Bld) [Volume fraction] 36.2 % Low 41.0-53.0 [facility] Comment on above: Order Comment: Criti drea result acted upon time of test. Test performed at bedside. Hemoglobin (Bld) [Mass/Vol] 11.8 g/dL Low 13.5-17.5 [facility] Comment on above: Order Comment: Criti drea result acted upon time of test. Test performed at bedside. LACTIC ACID, WHOLE BLOOD 4.7 mmol/L Off scale high 0.6-2.0 [facility] Comment on above: Order Comment: Criti drea result acted upon time of test. Test performed at bedside. LITER FLOW 6 Normal [facility] Comment on above: Order Comment: Criti drea result acted upon time of test. Test performed at bedside. METHEMOGLOBIN 0.4 % Normal 0.0-2.0 [facility] Comment on above: Order Comment: Criti drea result acted upon time of test. Test performed at bedside. O2HB 96.2 % Normal 94.0-98.0 [facility] Comment on above: Order Comment: Criti drea result acted upon time of test. Test performed at bedside. Oxygen saturation in Blood 98.4 % Normal 92.0-99.0 [facility] Comment on above: Order Comment: Criti drea result acted upon time of test. Test performed at bedside. PCO2 ARTERIAL 68.5 mm Hg High 35.0-45.0 [facility] Comment on above: Order Comment: Criti drea result acted upon time of test. Test performed at bedside. PH ARTERIAL 7.24 Low 7.35-7.45 [facility] Comment on above: Order Comment: Criti drea result acted upon time of test. Test performed at bedside. PO2 ARTERIAL 123 mm Hg High 80-100 [facility] Comment on above: Order Comment: Criti drea result acted upon time of test. Test performed at bedside. Potassium [Moles/Vol] 4.1 mmol/L Normal 3.5-5.1 [facility] Comment on above: Order Comment: Criti drea result acted upon time of test. Test performed at bedside. Sodium [Moles/Vol] 136 mmol/L Normal 135-145 [facility] Comment on above: Order Comment: Criti drea result acted upon time of test. Test performed at bedside. SPECIMEN SOURCE RADIANCE Radial, right Normal [facility] Comment on above: Order Comment: Criti drea result acted upon time of test. Test performed at bedside. POC Arterial Blood Gas Panel -Pulmon 04-04-2025 Alveolar-arterial oxygen Partial pressure difference 101.3 mm Hg [facility] Base excess Calc (Bld) [Moles/Vol] 0.9 mmol/L -2.0 - 2.0 [facility] Calcium.ionized [Mass/Vol] 4.7 mg/dL 4.5 - 5.3 mg/dL [facility] Carboxyhemoglobin (BldA) [Mass fraction] 1.7 High [facility] Comment on above: Reference Ranges: [place] Non-smokers: <1.5% Smokers: 1.5-5.0% Heavy Smokers: 5.0-9.0% CO2 (Bld) [Partial pressure] 68.5 mm[Hg] High [facility] Glucose post fast [Mass/Vol] 126 mg/dL High 65 - 99 mg/dL [facility] Hematocrit (BldA) [Volume fraction] 36.2 % Low 41.0 - 53.0 % [facility] Inhaled oxygen concentration 44 % [facility] Inhaled oxygen flow rate 6 L/min [facility] Interpretation and review of laboratory results Abnormal [facility] Lactate [Moles/Vol] 4.7 mmol/L Critically high 0.6 - 2.0 mmol/L [facility] Methemoglobin (BldA) [Mass fraction] 0.4 % 0.0 - 2.0 % [facility] Oxygen (Bld) [Partial pressure] 123 mm[Hg] High [facility] Oxyhemoglobin (BldA) [Mass fraction] 96.2 % 94.0 - 98.0 % [facility] pH (Bld) 7.24 [pH] Low 7.35 - 7.45 [facility] Specimen source Nom (Unsp spec) Radial, right [facility] Critical result acte d upon time of test. Test performed at bedside. [facility] Glucose [Mass/Vol] 143 mg/dL High 65-99 [facility] AMMONIAon 04-02-2025 AMMONIA 49 micromol/L High 12 [facility] Comment on above: Performed By: #### 4 [id number] #### LAB [address] [place], [place] [address] Jack Mendoza M.D. [id number] Ammoniaon 04-02-2025 Ammonia (P) [Mass/Vol] 49 ug/dL High [facility] Ammonia (P) [Mass/Vol]on Interpretation and review of laboratory results Abnormal [facility] BASIC METABOLIC PANELon 03-22 Anion gap [Moles/Vol] 11 mmol/L Normal 10-20 [facility] Comment on above: Order Comment: [facility] has implemented the eGFR calculation approach that does not have a coefficient for race that conforms to the NKF-ASN Task Force Recommendations. Performed By: #### 4 [id number] #### LAB [address] [address] Jack Mendoza M.D. [id number] Calcium [Mass/Vol] 8.8 mg/dL Normal 8.4-10.2 [facility] Comment on above: Order Comment: [facility] has implemented the eGFR calculation approach that does not have a coefficient for race that conforms to the NKF-ASN Task Force Recommendations. Performed By: #### 4 [id number] #### LAB [address] [address] Jack Mendoza M.D. [id number] Chloride [Moles/Vol] 99 mmol/L Normal 98-108 [facility] Comment on above: Order Comment: [facility] has implemented the eGFR calculation approach that does not have a coefficient for race that conforms to the NKF-ASN Task Force Recommendations. Performed By: #### 4 [id number] #### LAB [address] [address] Jack Mendoza M.D. [id number] Creatinine [Mass/Vol] 0.47 mg/dL Low 0.50-1.30 [facility] Comment on above: Order Comment: [facility] has implemented the eGFR calculation approach that does not have a coefficient for race that conforms to the NKF-ASN Task Force Recommendations. Performed By: #### 4 [id number] #### LAB [address] [address] Jack Mendoza M.D. [id number] EGFR 120 mL/min/1.73 m2 Normal >=60 [facility] Comment on above: Order Comment: [facility] has implemented the eGFR calculation approach that does not have a coefficient for race that conforms to the NKF-ASN Task Force Recommendations. Result Comment: Ashley mated GFR was calculated using the 2020 CKD-EPI creatinine equation. Performed By: #### 4 [id number] #### LAB [address] [address] Jack Mendoza M.D. [id number] Glucose [Mass/Vol] 110 mg/dL High 65-99 [facility] Comment on above: Order Comment: [facility] has implemented the eGFR calculation approach that does not have a coefficient for race that conforms to the NKF-ASN Task Force Recommendations. Performed By: #### 4 [id number] #### LAB [address] [address] Jack Mendoza M.D. [id number] HCO3 (Bld) [Moles/Vol] 29 mmol/L Normal 21-32 [facility] Comment on above: Order Comment: [facility] has implemented the eGFR calculation approach that does not have a coefficient for race that conforms to the NKF-ASN Task Force Recommendations. Performed By: #### 4 [id number] #### LAB [address] [address] Jack Mendoza M.D. [id number] Potassium [Moles/Vol] 4.4 mmol/L Normal 3.5-5.1 [facility] Comment on above: Order Comment: [facility] has implemented the eGFR calculation approach that does not have a coefficient for race that conforms to the NKF-ASN Task Force Recommendations. Result Comment: Slig htly Hemolyzed Performed By: #### 4 [id number] #### LAB [address] [address] Jack Mendoza M.D. [id number] Sodium [Moles/Vol] 135 mmol/L Normal 135-145 [facility] Comment on above: Order Comment: [facility] has implemented the eGFR calculation approach that does not have a coefficient for race that conforms to the NKF-ASN Task Force Recommendations. Performed By: #### 4 [id number] #### LAB [address] [id number] aJck Mendoza M.D. [id number] Urea nitrogen [Mass/Vol] 13 mg/dL Normal 8-25 [facility] Comment on above: Order Comment: [facility] has implemented the eGFR calculation approach that does not have a coefficient for race that conforms to the NKF-ASN Task Force Recommendations. Performed By: #### 4 6124 #### LAB [address] [place], [place] [address] Jack Mendoza M.D. [id number] Urea nitrogen/Creatinine [Mass ratio] 27.7 mg/mg High 10.0-20.0 [facility] Comment on above: Order Comment: [facility] has implemented the eGFR calculation approach that does not have a coefficient for race that conforms to the NKF-ASN Task Force Recommendations. Performed By: #### 4 [id number] #### LAB [address] [place], [place] [address] Jack Mendoza M.D. [id number] BLOOD CULTURE AEROBIC/ANAERO BICon 04-02-2025 BLOOD CULTURE AEROBIC/ANAEROBIC BLOOD CULTURE No Growth after 5 days Normal [facility] Comment on above: Performed By: #### 4 [id number] ####[facility] [address] [place] [address] Venancio Richardson M.D. [id number] Basic metabolic 2000 panelOr dered By: Caty Sanchez on 04-02-2025 Anion gap [Moles/Vol] 11 mmol/L 10 - 20 mmol/L [facility] Calcium [Mass/Vol] 8.8 mg/dL 8.4 - 10. 2 mg/dL [facility] Chloride [Moles/Vol] 99 mmol/L 98 - 10 8 mmol/L [facility] Creatinine [Mass/Vol] 0.47 mg/dL Low 0.50 - 1.30 mg/dL [facility] GFR/1.73 sq M.predicted CKD-EPI (S/P/Bld) [Vol rate/Area] 120 - PINF [facility] Comment on above: Estimated GFR was ca lculated using the 2020 CKD-EPI creatinine equation. Glucose [Mass/Vol] 110 mg/dL High 65 - 99 mg/dL [facility] HCO3 [Moles/Vol] 29 mmol/L 21 - 32 mmol/L [facility] Interpretation and review of laboratory results Abnormal [facility] Potassium [Moles/Vol] 4.4 mmol/L 3.5 - 5.1 mmol/L [facility] Comment on above: Slightly Hemolyzed Sodium [Moles/Vol] 135 mmol/L 135 - 145 mmol/L [facility] Urea nitrogen [Mass/Vol] 13 mg/dL 8 - 25 mg/dL [facility] Urea nitrogen/Creatinine [Mass ratio] 27.7 mg/mg High 10.0 - 20.0 [facility] has implemented the eGFR calculation approach that does not have a coefficient for race that conforms to the NKF-ASN Task Force Recommendations. [facility] CBC Auto Differentialon 03-22 Basophils (Bld) [#/Vol] 0.01 10*3/uL [facility] Basophils/100 WBC (Bld) 0.3 % [facility] Eosinophils (Bld) [#/Vol] 0.04 10*3/uL [facility] Eosinophils/100 WBC (Bld) 1.3 % [facility] Erythrocyte distribution width (RBC) [Entitic vol] 18.7 % High 11.6 - 14.8 % [facility] Hematocrit (Bld) [Volume fraction] 35.8 % Low 41.0 - 53.0 % [facility] Hemoglobin (Bld) [Mass/Vol] 10.9 g/dL Low 13.5 - 17.5 g/dL [facility] Immature granulocytes (Bld) [#/Vol] 0.03 10*3/uL [facility] Immature granulocytes/100 WBC (Bld) 1 % [facility] Comment on above: The IG parameter is the percentage of metamyelocytes, myelocytes and promyelocytes. An immature granulocyte count (IG) of 1% or more suggests the possibility of infection, an IG count of 3% is very likely related to an infection. Lymphocytes (Bld) [#/Vol] 0.47 10*3/uL Low [facility] Lymphocytes/100 WBC (Bld) 15.7 % [facility] MCH (RBC) [Entitic mass] 21.6 pg Low 26.0 - 34.0 pg [facility] MCHC (RBC) [Mass/Vol] 30.4 g/dL Low 31.0 - 37.0 g/dL [facility] MCV (RBC) [Entitic vol] 71 fL Low 80.0 - 100.0 fL [facility] Monocytes (Bld) [#/Vol] 0.25 10*3/uL Low [facility] Monocytes/100 WBC (Bld) 8.3 % [facility] Neutrophils (Bld) [#/Vol] 2.2 10*3/uL [facility] Neutrophils/100 WBC (Bld) 73.4 % [facility] Comment on above: Peripheral smear rev iewed manually Nucleated RBC (Bld) [#/Vol] 0 10*3/uL [facility] Nucleated RBC/100 WBC (Bld) [Ratio] 0 % [facility] Platelets (Bld) [#/Vol] 117 10*3/uL Low [facility] RBC (Bld) [#/Vol] 5.04 10*6/uL [facility] WBC (Bld) [#/Vol] 3 10*3/uL [facility] CBC WITH AUTO DIFFERENTIALon 04-02-2025 AUTO NRBC 0.0 % Normal [facility] Comment on above: Performed By: #### L [id number] #### LAB [address] [address] Jack Mendoza M.D. [id number] AUTO NRBC ABS COUNT 0.00 K/mcL Normal 0.00-0.00 [facility] Comment on above: Performed By: #### L [id number] #### LAB [address] [address] Jack Mendoza M.D. [id number] BASOPHILS ABSOLUTE COUNT 0.01 K/mcL Normal 0.00-0.30 [facility] Comment on above: Performed By: #### L [id number] #### LAB [address] [address] Jack Mendoza M.D. [id number] Basophils/100 WBC (Bld) 0.3 % [facility] Comment on above: Performed By: #### L [id number] #### LAB [address] [address] Jack Mendoza M.D. [id number] Eosinophils (Bld) [#/Vol] 0.04 10*3/uL Normal 0.00-0.50 [facility] Comment on above: Performed By: #### L [id number] #### LAB [address] [place] [address] Jack Mendoza M.D. [id number] Eosinophils/100 WBC (Bld) 1.3 % [facility] Comment on above: Performed By: #### L [id number] #### LAB [address] [address] Jack Mendoza M.D. [id number] Erythrocyte distribution width (RBC) [Ratio] 18.7 % High 11.6-14.8 [facility] Comment on above: Performed By: #### L [id number] #### LAB [address] [address] Jack Mendoza M.D. [id number] Hematocrit (Bld) [Volume fraction] 35.8 % Low 41.0-53.0 [facility] Comment on above: Performed By: #### L [id number] #### LAB [address] [address] Jack Mendoza M.D. [id number] Hemoglobin (Bld) [Mass/Vol] 10.9 g/dL Low 13.5-17.5 [facility] Comment on above: Performed By: #### L [id number] #### LAB [address] [place] [address] Jack Mendoza M.D. [id number] IG ABSOLUTE 0.03 K/mcL Normal 0.00-0.30 [facility] Comment on above: Performed By: #### L [id number] #### LAB [address] [place] [address] Jack Mendoza M.D. [id number] IG PERCENT 1.00 % Normal [facility] Comment on above: Result Comment: The IG parameter is the percentage of metamyelocytes, myelocytes and promyelocytes. An immature granulocyte count (IG) of 1% or more suggests the possibility of infection, an IG count of 3% is very likely related to an infection. Performed By: #### L [id number] #### LAB [address] [place] [address] Jack Mendoza M.D. [id number] Lymphocytes (Bld) [#/Vol] 0.47 10*3/uL Low 0.90-4.00 [facility] Comment on above: Performed By: #### L [id number] #### LAB [address] [address] Jack Mendoza M.D. [id number] Lymphocytes/100 WBC (Bld) 15.7 % Normal [facility] Comment on above: Performed By: #### L [id number] #### LAB [address] [address] Jack Mendoza M.D. [id number] MCH (RBC) [Entitic mass] 21.6 pg Low 26.0-34.0 [facility] Comment on above: Performed By: #### L [id number] #### LAB [address] [address] Jack Mendoza M.D. [id number] MCV (RBC) [Entitic vol] 71.0 fL Low 80.0-100.0 [facility] Comment on above: Performed By: #### L [id number] #### LAB [address] [address] Jack Mendoza M.D. [id number] MEAN CORPUSCULAR HEMOGLOBIN CONC 30.4 g/dL Low 31.0-37.0 [facility] Comment on above: Performed By: #### L [id number] #### LAB [address] [address] Jack Mendoza M.D. [id number] Monocytes (Bld) [#/Vol] 0.25 10*3/uL Low 0.30-0.90 [facility] Comment on above: Performed By: #### L [id number] #### LAB [address] [address] Jack Mendoza M.D. [id number] Monocytes/100 WBC (Bld) 8.3 % Normal [facility] Comment on above: Performed By: #### L [id number] #### LAB [address] [address] Jack Mendoza M.D. [id number] NEUTROPHILS ABSOLUTE COUNT 2.20 K/mcL Normal 1.70-7.00 [facility] Comment on above: Performed By: #### L [id number] #### LAB [address] [address] Jack Mendoza M.D. [id number] Neutrophils/100 WBC (Bld) 73.4 % Normal [facility] Comment on above: Result Comment: Tiffany pheral smear reviewed manually Performed By: #### L [id number] #### LAB [address] [address] Jack Mendoza M.D. [id number] Platelets (Bld) [#/Vol] 117 10*3/uL Low 150-400 [facility] Comment on above: Performed By: #### L [id number] #### LAB [address] [address] Jack Mendoza M.D. [id number] RBC (Bld) [#/Vol] 5.04 10*6/uL Normal 4.50-5.90 [facility] Comment on above: Performed By: #### L [id number] #### LAB [address] [address] Jack Mendoza M.D. [id number] WBC (Bld) [#/Vol] 3.00 10*3/uL Low 4.50-11.00 [facility] Comment on above: Performed By: #### L [id number] #### LAB [address] [address] Jack Mendoza M.D. [id number] CBC and Diff Morphologyon Roe cells LM Ql (Bld) Few [facility] Ovalocytes LM Ql (Bld) Moderate [facility] Platelets LM Ql (Bld) Decreased Abnormal Normal [facility] Polychromasia LM Ql (Bld) Few [facility] RBC morphology finding Nom (Bld) See Comment [facility] Comment on above: RBC Indices confirme d with manual peripheral smear review. Target cells LM Ql (Bld) Few [facility] CRP [Mass/Vol]on 04-02-2025 Interpretation and review of laboratory results Abnormal [facility] CRP, INFLAMMATIONon 04-02-20 25 CRP [Mass/Vol] 16.3 mg/L High 0.0-10.0 [facility] Comment on above: Performed By: #### 4 [id number] #### LAB [address] [place], [place] [address] Jack Mendoza M.D. [id number] CRP, Inflammationon 04-02-20 CRP [Mass/Vol] 16.3 mg/L High 0.0 - 10.0 mg/L [facility] ED Prov Noteon 04-02-2025 ED Prov Note Normal [facility] ESR Westergren method (Bld) [Velocity]on 04-02-2025 ESR (Bld) [Velocity] 64 mm/h High [facility] Interpretation and review of laboratory results Abnormal [facility] Combs Topon 04-02-2025 Extra Tube Hold for add-ons. [facility] Comment on above: Auto resulted. [facility] H AND Mike 04-02-2025 H AND P Normal [facility] HEPATIC FUNCTION PANELon Albumin [Mass/Vol] 3.4 g/dL Normal 3.2-5.2 [facility] Comment on above: Performed By: #### 4 5866 #### LAB [address] [address] Jack Mendoza M.D. [id number] ALP [Catalytic activity/Vol] 91 U/L Normal 40-150 [facility] Comment on above: Performed By: #### 4 5866 #### LAB [address] [place] [id number] Jack Mendoza M.D. [id number] ALT [Catalytic activity/Vol] 13 U/L Normal 0-50 U/L [facility] Comment on above: Performed By: #### 4 5866 #### LAB [address] [place] [id number] Jack Mendoza M.D. [id number] AST [Catalytic activity/Vol] 33 U/L Normal 0-50 U/L [facility] Comment on above: Result Comment: Slig htly Hemolyzed Performed By: #### 4 5866 #### LAB [address] [place] [address] Jack Mendoza M.D. [id number] Bilirubin [Mass/Vol] 0.9 mg/dL Normal 0.0-1.3 [facility] Comment on above: Performed By: #### 4 5866 ####[facility] LAB [address] [place], [place] [address] Jack Mendoza M.D. [id number] Bilirubin.indirect [Mass/Vol] 0.3 mg/dL Normal 0.0-0.4 [facility] Comment on above: Result Comment: Slig htly Hemolyzed Performed By: #### 4 5866 ####[facility] LAB [address] [place] [address] Jack Mendoza M.D. [id number] Protein [Mass/Vol] 8.0 g/dL Normal 6.0-8.0 [facility] Comment on above: Performed By: #### 4 5866 ####[facility] LAB [address] [place], [place] [address] Jack Mendoza M.D. [id number] Hepatic function 2000 panelo n 04-02-2025 Albumin [Mass/Vol] 3.4 g/dL 3.2 - 5.2 g/dL [facility] ALP [Catalytic activity/Vol] 91 U/L 40 - 150 U/L [facility] ALT [Catalytic activity/Vol] 13 U/L 0 - 50 U/L [facility] AST [Catalytic activity/Vol] 33 U/L 0 - 50 U/L [facility] Comment on above: Slightly Hemolyzed Bilirubin [Mass/Vol] 0.9 mg/dL 0.0 - 1 .3 mg/dL [facility] Bilirubin.conjugated [Mass/Vol] 0.3 mg/dL 0.0 - 0.4 mg/dL [facility] Comment on above: Slightly Hemolyzed Interpretation and review of laboratory results Normal [facility] Protein [Mass/Vol] 8 g/dL 6.0 - 8.0 g/dL [facility] MORPHOLOGYon 04-02-2025 ROE CELLS Few Normal [facility] Comment on above: Performed By: #### L [id number] ####[facility] [address] [place], [place] [address] Jack Mendoza M.D. [id number] OVAL SCAN Moderate Normal [facility] Comment on above: Performed By: #### L [id number] ####[facility] LAB [address] [place], [place] [address] Jack Mendoza M.D. [id number] PLATELET ESTIMATE Decreased Abnormal Normal [facility] Comment on above: Performed By: #### L [id number] ####[facility] [address] [place], [place] [address] Jack Mendoza M.D. [id number] POLY SCAN Few Normal [facility] Comment on above: Performed By: #### L [id number] ####[facility] LAB [address] [place], [place] [address] Jack Mendoza M.D. [id number] RBC MORPH SCAN See Comment Normal [facility] Comment on above: Result Comment: RBC Indices confirmed with manual peripheral smear review. Performed By: #### L [id number] ####[facility] [address] [place], [place] [address] Jack Mendoza M.D. [id number] TARGET CELL SCAN Few Normal [facility] Comment on above: Performed By: #### L [id number] ####[facility] LAB [address] [place], [place] [address] Jack Mendoza M.D. [id number] NT PRO BNPon 04-02-2025 Natriuretic peptide B (Bld) [Mass/Vol] 189 pg/mL Normal 0-300 [facility] Comment on above: Order Comment: Pride Study Cut-offsRule In:< /= 50 Years >450 pg/mL51 Years - 75 Years >900 pg/mL76 Years - 99 Years >1800 pg/mLRule Out:All patients <300 pg/mL Performed By: #### 4 [id number] ####[facility] [address] [place], [place] [address] Jack Mendoza M.D. [id number] NT Pro BNPon 04-02-2025 Natriuretic peptide.B prohormone N-Terminal [Mass/Vol] 189 pg/mL 0 - 300 pg/mL [facility] Natriuretic peptide.B prohor randi N-Terminal [Mass/Vol]on 04-02-2025 Interpretation and review of laboratory results Normal [facility] Pride Study Cut-offs Rule In: < /= 50 Years >450 pg/mL 51 Years - 75 Years >900 pg/mL 76 Years - 99 Years >1800 pg/mL Rule Out: All patients <300 pg/mL [facility] No Panel Informationon 04-02 [facility] Interpretation and review of laboratory results Abnormal [facility] SEDIMENTATION RATEon 025 SEDIMENTATION RATE, ERYTHROCYTE 64 mm/hr High 0-20 [facility] Comment on above: Performed By: #### 4 [id number] #### LAB [address] [place] [address] Jack Mendoza M.D. [id number] TROPONIN X 2 (NOW AND REPEAT IN 2 HOURS)on 04-02-2025 TROPONIN T DELTA CHANGE INTERPRETATION Delta troponin requires at least 2 hours between collections. Normal [facility] Comment on above: Performed By: #### 4 6608 #### LAB [address] [place] [address] Jack Mendoza M.D. [id number] TROPONIN T NG/L 8 ng/L Normal <=22 [facility] Comment on above: Performed By: #### 4 6608 #### LAB [address] [place] [address] Jack Mendoza M.D. [id number] BASELINE TROPONIN T NG/L 8 ng/L Normal <=22 [facility] Comment on above: Performed By: #### 4 6608 #### LAB [address] [place] [address] Jack Mednoza M.D. [id number] TROPONIN T INTERPRETATION Normal Normal [facility] Comment on above: Performed By: #### 4 6608 #### LAB [address] [place] [address] Jack Mendoza M.D. [id number] Troponin x 2 (Now and Repeat in 2 hours)on 04-02-2025 Interp Troponin T Delta Change Delta troponin requires at least 2 hours between collections. [facility] Troponin T.cardiac High sensitivity method [Mass/Vol] 8 ng/L NINF - 22 ng/L [facility] Troponin T 8 ng/L NINF - 22 ng/L [facility] Troponin T Interpretation Normal [facility] XR CHEST PA/APon 04-02-2025 XR CHEST PA/AP [facility] Comment on above: Order Comment: Injur y/Trauma or Illness?:Illness/OtherHow long have you had these symptoms (acute/chronic)?:AcuteReason for exam?:edemaHistory of cancer?:uSurgeries, chemotherapy, or radiation?:uType of Exam?:InitialAdditional signs and symptoms?:weakness XR Chest PA and Abdomen APon 04-02-2025 Low lung volumes with chronic interstitial changes. No consolidation or evidence congestive heart failure. Workstation ID: [id number] theDrop EXAMINATION: XR CHEST PA/AP 04/02/2025 1:11 pm [...] congestive heart failure. Degenerative changes spine shoulders. Go800 Carmen Garcia MD - 04/02/2025 EXAMINATION: XR [...] evidence congestive heart failure. Workstation ID: [id number] [facility] Radiology Study observation (narrative) [facility] XR Chest PA and Abdomen APOr dered By: Carmen Garcia on 04-02-2025 [facility] Work Phone: XR KNEE RIGHT 2 VIEWS (STAND NO)on 04-02-2025 XR KNEE RIGHT 2 VIEWS (STANDARD) [facility] Comment on above: Order Comment: Injur y/Trauma or Illness?:Illness/OtherHow long have you had these symptoms (acute/chronic)?:AcuteReason for exam?:nki, weaknessHistory of cancer?:uSurgeries, chemotherapy, or radiation?:uType of Exam?:InitialAdditional signs and symptoms?:pain XR Knee - right 2 Viewson No acute process. Chronic changes including effusion. Workstation ID: [id number] [facility] EXAMINATION: XR KNEE RIGHT 2 VIEWS (STANDARD) [...] Chronic changes including effusion. Workstation ID: [id number] [facility] Radiology Study observation (narrative) [facility] BASIC METABOLIC PANELon 07-0 Anion gap [Moles/Vol] 12 mmol/L Normal - [facility] Comment on above: Order Comment: [facility] has implemented the eGFR calculation approach that does not have a coefficient for race that conforms to the NKF-ASN Task Force Recommendations. Performed By: #### 4 6124 #### LAB [address] [place], [place] [address] Jack Mendoza M.D. [id number] Calcium [Mass/Vol] 8.3 mg/dL Low 8.4-10.2 [facility] Comment on above: Order Comment: [facility] has implemented the eGFR calculation approach that does not have a coefficient for race that conforms to the NKF-ASN Task Force Recommendations. Performed By: #### 4 6124 #### LAB [address] [place] [address] Jack Mendoza M.D. [id number] Chloride [Moles/Vol] 102 mmol/L Normal 98-108 [facility] Comment on above: Order Comment: [facility] has implemented the eGFR calculation approach that does not have a coefficient for race that conforms to the NKF-ASN Task Force Recommendations. Performed By: #### 4 6124 #### LAB [address] [place] [address] Jack Mendoza M.D. [id number] Creatinine [Mass/Vol] 0.72 mg/dL Normal 0.50-1.30 [facility] Comment on above: Order Comment: [facility] has implemented the eGFR calculation approach that does not have a coefficient for race that conforms to the NKF-ASN Task Force Recommendations. Performed By: #### 4 6124 #### LAB [address] [place] [address] Jack Mendoza M.D. [id number] EGFR 106 mL/min/1.73 m2 Normal >=60 [facility] Comment on above: Order Comment: [facility] has implemented the eGFR calculation approach that does not have a coefficient for race that conforms to the NKF-ASN Task Force Recommendations. Result Comment: Aslhey mated GFR was calculated using the 2020 CKD-EPI creatinine equation. Performed By: #### 4 6124 #### LAB [address] [place] [address] Jack Mendoza M.D. [id number] Glucose [Mass/Vol] 102 mg/dL High 65-99 [facility] Comment on above: Order Comment: [facility] has implemented the eGFR calculation approach that does not have a coefficient for race that conforms to the NKF-ASN Task Force Recommendations. Performed By: #### 4 6124 #### LAB [address] [place] [address] Jack Mendoza M.D. [id number] HCO3 (Bld) [Moles/Vol] 25 mmol/L Normal 21-32 [facility] Comment on above: Order Comment: [facility] has implemented the eGFR calculation approach that does not have a coefficient for race that conforms to the NKF-ASN Task Force Recommendations. Performed By: #### 4 6124 #### LAB [address] [place] [address] Jack Mendoza M.D. [id number] Potassium [Moles/Vol] 4.2 mmol/L Normal 3.5-5.1 [facility] Comment on above: Order Comment: [facility] has implemented the eGFR calculation approach that does not have a coefficient for race that conforms to the NKF-ASN Task Force Recommendations. Performed By: #### 4 6124 #### LAB [address] [place] [address] Jack Mendoza M.D. [id number] Sodium [Moles/Vol] 135 mmol/L Normal 135-145 [facility] Comment on above: Order Comment: [facility] has implemented the eGFR calculation approach that does not have a coefficient for race that conforms to the NKF-ASN Task Force Recommendations. Performed By: #### 4 6124 #### LAB [address] [place] [address] Jack Mendoza M.D. [id number] Urea nitrogen [Mass/Vol] 13 mg/dL Normal 8-25 [facility] Comment on above: Order Comment: [facility] has implemented the eGFR calculation approach that does not have a coefficient for race that conforms to the NKF-ASN Task Force Recommendations. Performed By: #### 4 6124 #### LAB [address] [place] [address] Jack Mendoza M.D. [id number] Urea nitrogen/Creatinine [Mass ratio] 18.1 mg/mg Normal 10.0-20.0 [facility] Comment on above: Order Comment: [facility] has implemented the eGFR calculation approach that does not have a coefficient for race that conforms to the NKF-ASN Task Force Recommendations. Performed By: #### 4 6124 #### LAB [address] [place] [address] Jack Mendoza M.D. [id number] CBC WITH AUTO DIFFERENTIALon 02-21-2025 AUTO NRBC 0.0 % [facility] Comment on above: Performed By: #### L [id number] #### LAB [address] [place] [address] Jack Mendoza M.D. [id number] AUTO NRBC ABS COUNT 0.00 K/mcL Normal 0.00-0.00 [facility] Comment on above: Performed By: #### L [id number] #### LAB [address] [place] [address] Jack Mendoza M.D. [id number] BASOPHILS ABSOLUTE COUNT 0.01 K/mcL Normal 0.00-0.30 [facility] Comment on above: Performed By: #### L [id number] #### LAB [address] [place] [address] Jack Mendoza M.D. [id number] Basophils/100 WBC (Bld) 0.3 % [facility] Comment on above: Performed By: #### L [id number] #### LAB [address] [place] [address] Jack Mendoza M.D. [id number] Eosinophils (Bld) [#/Vol] 0.09 10*3/uL Normal 0.00-0.50 [facility] Comment on above: Performed By: #### L [id number] #### LAB [address] [place] [address] Jack Mendoza M.D. [id number] Eosinophils/100 WBC (Bld) 2.9 % [facility] Comment on above: Performed By: #### L [id number] #### LAB [address] [place] [address] Jack Mendoza M.D. [id number] Erythrocyte distribution width (RBC) [Ratio] 19.2 % High 11.6-14.8 [facility] Comment on above: Performed By: #### L [id number] #### LAB [address] [place] [address] Jack Mendoza M.D. [id number] Hematocrit (Bld) [Volume fraction] 32.1 % Low 41.0-53.0 [facility] Comment on above: Performed By: #### L [id number] #### LAB [address] [place] [address] Jack Mendoza M.D. [id number] Hemoglobin (Bld) [Mass/Vol] 9.8 g/dL Low 13.5-17.5 [facility] Comment on above: Performed By: #### L [id number] #### LAB [address] [place] [address] Jack Mendoza M.D. [id number] IG ABSOLUTE 0.01 K/mcL Normal 0.00-0.30 [facility] Comment on above: Performed By: #### L [id number] #### LAB [address] [place] [address] Jack Mendoza M.D. [id number] IG PERCENT 0.30 % Normal [facility] Comment on above: Result Comment: The IG parameter is the percentage of metamyelocytes, myelocytes and promyelocytes. An immature granulocyte count (IG) of 1% or more suggests the possibility of infection, an IG count of 3% is very likely related to an infection. Performed By: #### L [id number] #### LAB [address] [place] [address] Jack Mendoza M.D. [id number] Lymphocytes (Bld) [#/Vol] 0.78 10*3/uL Low 0.90-4.00 [facility] Comment on above: Performed By: #### L [id number] #### LAB [address] [place], [place] [address] Jack Mendoza M.D. [id number] Lymphocytes/100 WBC (Bld) 25.3 % Normal [facility] Comment on above: Performed By: #### L [id number] #### LAB [address] [place] [address] Jack Mendoza M.D. [id number] MCH (RBC) [Entitic mass] 20.7 pg Low 26.0-34.0 [facility] Comment on above: Performed By: #### L [id number] #### LAB [address] [place] [address] Jack Mendoza M.D. [id number] MCV (RBC) [Entitic vol] 67.9 fL Low 80.0-100.0 [facility] Comment on above: Performed By: #### L [id number] #### LAB [address] [place] [address] Jack Mendoza M.D. [id number] MEAN CORPUSCULAR HEMOGLOBIN CONC 30.5 g/dL Low 31.0-37.0 [facility] Comment on above: Performed By: #### L [id number] #### LAB [address] [place] [address] Jack Mendoza M.D. [id number] Monocytes (Bld) [#/Vol] 0.35 10*3/uL Normal 0.30-0.90 [facility] Comment on above: Performed By: #### L [id number] #### LAB [address] [place] [address] Jack Mendoza M.D. [id number] Monocytes/100 WBC (Bld) 11.4 % Normal [facility] Comment on above: Performed By: #### L [id number] #### LAB [address] [place] [address] Jack Mendoza M.D. [id number] NEUTROPHILS ABSOLUTE COUNT 1.84 K/mcL Normal 1.70-7.00 [facility] Comment on above: Performed By: #### L [id number] #### LAB [address] [place] [address] Jack Mendoza M.D. [id number] Neutrophils/100 WBC (Bld) 59.8 % Normal [facility] Comment on above: Result Comment: Tiffany pheral smear reviewed manually Performed By: #### L [id number] #### LAB [address] [place] [address] Jack Mendoza M.D. [id number] Platelets (Bld) [#/Vol] 111 10*3/uL Low 150-400 [facility] Comment on above: Performed By: #### L [id number] #### LAB [address] [place] [address] Jack Mendoza M.D. [id number] RBC (Bld) [#/Vol] 4.73 10*6/uL Normal 4.50-5.90 [facility] Comment on above: Performed By: #### L [id number] #### LAB [address] [place] [address] Jack Mendoza M.D. [id number] WBC (Bld) [#/Vol] 3.08 10*3/uL Low 4.50-11.00 [facility] Comment on above: Performed By: #### L [id number] #### LAB [address] [place] [address] Jack Mendoza M.D. [id number] Disch Summon 02-21-2025 Disch Summ Normal [facility] MAGNESIUM LEVELon 02-21-2025 Magnesium [Mass/Vol] 1.8 mg/dL Normal 1.6-2.4 [facility] Comment on above: Performed By: #### 4 6109 #### LAB [address] [place] [address] Jack Mendoza M.D. [id number] MORPHOLOGYon 02-21-2025 OVAL SCAN Few Normal [facility] Comment on above: Performed By: #### L [id number] #### LAB [address] [place] [address] Jack Mendoza M.D. [id number] PLATELET ESTIMATE Decreased Abnormal Normal [facility] Comment on above: Performed By: #### L [id number] ####[facility] [address] [place] [id number] Jack Mendoza M.D. [id number] POLY SCAN Few [facility] Comment on above: Performed By: #### L [id number] ####[facility] [address] [place] [address] Jack Mendoza M.D. [id number] RBC MORPH SCAN See Comment Normal [facility] Comment on above: Result Comment: RBC Indices confirmed with manual peripheral smear review. Performed By: #### L [id number] ####[facility] [address] [place] [address] Jack Mendoza M.D. [id number] TARGET CELL SCAN Few Normal [facility] Comment on above: Performed By: #### L [id number] ####[facility] [address] [place] [address] Jack Mendoza M.D. [id number] CONSULTon 02-19-2025 CONSULT [facility] XR MANDIBLE LESS THAN 4 VIEW S (PANOREX)on 02-19-2025 XR MANDIBLE LESS THAN 4 VIEWS (PANOREX) [facility] Comment on above: Order Comment: Injur y/Trauma or Illness?:Illness/OtherHow long have you had these symptoms (acute/chronic)?:AcuteReason for exam?:Multiple dental caries and possible abscessHistory of cancer?:uSurgeries, chemotherapy, or radiation?:uType of Exam?:InitialAdditional signs and symptoms?:Multiple dental caries and possible abscess BASIC METABOLIC PANELon 06-3 Anion gap [Moles/Vol] 12 mmol/L Normal - [facility] Comment on above: Order Comment: [facility] has implemented the eGFR calculation approach that does not have a coefficient for race that conforms to the NKF-ASN Task Force Recommendations. Performed By: #### 4 6124 ####[facility] [address] [place] [address] Jack Mendoza M.D. [id number] Calcium [Mass/Vol] 8.9 mg/dL Normal 8.4-10.2 [facility] Comment on above: Order Comment: [facility] has implemented the eGFR calculation approach that does not have a coefficient for race that conforms to the NKF-ASN Task Force Recommendations. Performed By: #### 4 6124 #### LAB [address] [place], [place] [address] Jack Mendoza M.D. [id number] Chloride [Moles/Vol] 106 mmol/L Normal 98-108 [facility] Comment on above: Order Comment: [facility] has implemented the eGFR calculation approach that does not have a coefficient for race that conforms to the NKF-ASN Task Force Recommendations. Performed By: #### 4 6124 #### LAB [address] [place] [address] Jack Mendoza M.D. [id number] Creatinine [Mass/Vol] 0.77 mg/dL Normal 0.50-1.30 [facility] Comment on above: Order Comment: [facility] has implemented the eGFR calculation approach that does not have a coefficient for race that conforms to the NKF-ASN Task Force Recommendations. Performed By: #### 4 6124 #### LAB [address] [place] [address] Jack Mendoza M.D. [id number] EGFR 104 mL/min/1.73 m2 Normal >=60 [facility] Comment on above: Order Comment: [facility] has implemented the eGFR calculation approach that does not have a coefficient for race that conforms to the NKF-ASN Task Force Recommendations. Result Comment: Ashley mated GFR was calculated using the 2020 CKD-EPI creatinine equation. Performed By: #### 4 6124 #### LAB [address] [place] [id number] Jack Mendoza M.D. [id number] Glucose [Mass/Vol] 95 mg/dL Normal 65-99 [facility] Comment on above: Order Comment: [facility] has implemented the eGFR calculation approach that does not have a coefficient for race that conforms to the NKF-ASN Task Force Recommendations. Performed By: #### 4 6124 #### LAB [address] [place] [address] Jack Mendoza M.D. [id number] HCO3 (Bld) [Moles/Vol] 25 mmol/L Normal 21-32 [facility] Comment on above: Order Comment: [facility] has implemented the eGFR calculation approach that does not have a coefficient for race that conforms to the NKF-ASN Task Force Recommendations. Performed By: #### 4 6124 #### LAB [address] [place] [address] Jack Mendoza M.D. [id number] Potassium [Moles/Vol] 3.9 mmol/L Normal 3.5-5.1 [facility] Comment on above: Order Comment: [facility] has implemented the eGFR calculation approach that does not have a coefficient for race that conforms to the NKF-ASN Task Force Recommendations. Performed By: #### 4 6124 #### LAB [address] [place] [address] Jack Mendoza M.D. [id number] Sodium [Moles/Vol] 139 mmol/L Normal 135-145 [facility] Comment on above: Order Comment: [facility] has implemented the eGFR calculation approach that does not have a coefficient for race that conforms to the NKF-ASN Task Force Recommendations. Performed By: #### 4 6124 #### LAB [address] [place] [address] Jack Mendoza M.D. [id number] Urea nitrogen [Mass/Vol] 10 mg/dL Normal 8-25 [facility] Comment on above: Order Comment: [facility] has implemented the eGFR calculation approach that does not have a coefficient for race that conforms to the NKF-ASN Task Force Recommendations. Performed By: #### 4 6124 ####[facility] [address] [place] [address] Jack Mendoza M.D. [id number] Urea nitrogen/Creatinine [Mass ratio] 13.0 mg/mg Normal 10.0-20.0 [facility] Comment on above: Order Comment: [facility] has implemented the eGFR calculation approach that does not have a coefficient for race that conforms to the NKF-ASN Task Force Recommendations. Performed By: #### 4 6124 #### LAB [address] [place] [address] Jack Mendoza M.D. [id number] CBC WITH AUTO DIFFERENTIALon 02-18-2025 AUTO NRBC 0.0 % [facility] Comment on above: Performed By: #### L [id number] #### LAB [address] [place] [address] Jack Mendoza M.D. [id number] AUTO NRBC ABS COUNT 0.00 K/mcL Normal 0.00-0.00 [facility] Comment on above: Performed By: #### L [id number] #### LAB [address] [place] [address] Jack Mendoza M.D. [id number] BASOPHILS ABSOLUTE COUNT 0.00 K/mcL Normal 0.00-0.30 [facility] Comment on above: Performed By: #### L [id number] #### LAB [address] [place] [address] Jack Mendoza M.D. [id number] Basophils/100 WBC (Bld) 0.0 % [facility] Comment on above: Performed By: #### L [id number] #### LAB [address] [place] [address] Jack Mendoza M.D. [id number] Eosinophils (Bld) [#/Vol] 0.09 10*3/uL Normal 0.00-0.50 [facility] Comment on above: Performed By: #### L [id number] #### LAB [address] [place] [address] Jack Mendoza M.D. [id number] Eosinophils/100 WBC (Bld) 3.4 % [facility] Comment on above: Performed By: #### L [id number] #### LAB [address] [place] [address] Jakc Mendoza M.D. [id number] Erythrocyte distribution width (RBC) [Ratio] 19.2 % High 11.6-14.8 [facility] Comment on above: Performed By: #### L [id number] #### LAB [address] [place] [address] Jack Mendoza M.D. [id number] Hematocrit (Bld) [Volume fraction] 32.4 % Low 41.0-53.0 [facility] Comment on above: Performed By: #### L [id number] #### LAB [address] [place] [address] Jack Mendoza M.D. [id number] Hemoglobin (Bld) [Mass/Vol] 9.9 g/dL Low 13.5-17.5 [facility] Comment on above: Performed By: #### L [id number] #### LAB [address] [place] [address] Jack Mendoza M.D. [id number] IG ABSOLUTE 0.01 K/mcL Normal 0.00-0.30 [facility] Comment on above: Performed By: #### L [id number] #### LAB [address] [place] [address] Jack Mendoza M.D. [id number] IG PERCENT 0.40 % [facility] Comment on above: Result Comment: The IG parameter is the percentage of metamyelocytes, myelocytes and promyelocytes. An immature granulocyte count (IG) of 1% or more suggests the possibility of infection, an IG count of 3% is very likely related to an infection. Performed By: #### L [id number] #### LAB [address] [place] [address] Jack Mendoza M.D. [id number] Lymphocytes (Bld) [#/Vol] 0.67 10*3/uL Low 0.90-4.00 [facility] Comment on above: Performed By: #### L [id number] #### LAB [address] [place] [address] Jack Mendoza M.D. [id number] Lymphocytes/100 WBC (Bld) 25.5 % [facility] Comment on above: Performed By: #### L [id number] #### LAB [address] [place] [address] Jack Mendoza M.D. [id number] MCH (RBC) [Entitic mass] 20.6 pg Low 26.0-34.0 [facility] Comment on above: Performed By: #### L [id number] ####[facility] [address] [place] [address] Jack Mendoza M.D. [id number] MCV (RBC) [Entitic vol] 67.4 fL Low 80.0-100.0 [facility] Comment on above: Performed By: #### L [id number] #### LAB [address] [place] [address] Jack Mendoza M.D. [id number] MEAN CORPUSCULAR HEMOGLOBIN CONC 30.6 g/dL Low 31.0-37.0 [facility] Comment on above: Performed By: #### L [id number] ####[facility] [address] [place] [address] Jack Mendoza M.D. [id number] Monocytes (Bld) [#/Vol] 0.21 10*3/uL Low 0.30-0.90 [facility] Comment on above: Performed By: #### L [id number] #### LAB [address] [place] [address] Jack Mendoza M.D. [id number] Monocytes/100 WBC (Bld) 8.0 % [facility] Comment on above: Performed By: #### L [id number] ####[facility] [address] [place] [address] Jack Mendoza M.D. [id number] NEUTROPHILS ABSOLUTE COUNT 1.65 K/mcL Low 1.70-7.00 [facility] Comment on above: Performed By: #### L [id number] ####[facility] [address] [place] [address] Jack Mendoza M.D. [id number] Neutrophils/100 WBC (Bld) 62.7 % Normal [facility] Comment on above: Performed By: #### L [id number] ####[facility] [address] [place] [address] Jack Mendoza M.D. [id number] Platelets (Bld) [#/Vol] 82 10*3/uL Low 150-400 [facility] Comment on above: Performed By: #### L [id number] ####[facility] [address] [place] [address] Jack Mendoza M.D. [id number] RBC (Bld) [#/Vol] 4.81 10*6/uL Normal 4.50-5.90 [facility] Comment on above: Performed By: #### L [id number] ####[facility] [address] [place] [address] Jack Mendoza M.D. [id number] WBC (Bld) [#/Vol] 2.63 10*3/uL Low 4.50-11.00 [facility] Comment on above: Performed By: #### L [id number] ####[facility] [address] [place] [address] Jack Mendoza M.D. [id number] CONSULTon 02-18-2025 CONSULT Normal [facility] MAGNESIUM LEVELon 02-18-2025 Magnesium [Mass/Vol] 1.6 mg/dL Normal 1.6-2.4 [facility] Comment on above: Performed By: #### 4 6109 ####[facility] [address] [address] Jack Mendoza M.D. [id number] [facility] Glucose [Mass/Vol] 102 mg/dL High 65-99 [facility] Comment on above: Performed By: #### 4 6932 ####[facility] [address] [address] Jack Mendoza M.D. [id number] BASIC METABOLIC PANELon 01-21 Anion gap [Moles/Vol] 14 mmol/L Normal 10-20 [facility] Comment on above: Order Comment: [facility] has implemented the eGFR calculation approach that does not have a coefficient for race that conforms to the NKF-ASN Task Force Recommendations. Performed By: #### 4 6124 #### LAB [address] [place], [place] [address] Jack Mendoza M.D. [id number] Calcium [Mass/Vol] 8.5 mg/dL Normal 8.4-10.2 [facility] Comment on above: Order Comment: [facility] has implemented the eGFR calculation approach that does not have a coefficient for race that conforms to the NKF-ASN Task Force Recommendations. Performed By: #### 4 6124 #### LAB [address] [id number] Jack Mendoza M.D. [id number] Chloride [Moles/Vol] 105 mmol/L Normal 98-108 [facility] Comment on above: Order Comment: [facility] has implemented the eGFR calculation approach that does not have a coefficient for race that conforms to the NKF-ASN Task Force Recommendations. Performed By: #### 4 6124 #### LAB [address] [place], [place] [address] Jack Mendoza M.D. [id number] Creatinine [Mass/Vol] 0.93 mg/dL Normal 0.50-1.30 [facility] Comment on above: Order Comment: [facility] has implemented the eGFR calculation approach that does not have a coefficient for race that conforms to the NKF-ASN Task Force Recommendations. Performed By: #### 4 6124 #### LAB [address] [place], [place] [address] Jack Mendoza M.D. [id number] EGFR 95 mL/min/1.73 m2 Normal >=60 [facility] Comment on above: Order Comment: [facility] has implemented the eGFR calculation approach that does not have a coefficient for race that conforms to the NKF-ASN Task Force Recommendations. Result Comment: Ashley mated GFR was calculated using the 2020 CKD-EPI creatinine equation. Performed By: #### 4 6112 #### LAB [address] [id number] Jack Mendoza M.D. [id number] Glucose [Mass/Vol] 131 mg/dL High 65-99 [facility] Comment on above: Order Comment: [facility] has implemented the eGFR calculation approach that does not have a coefficient for race that conforms to the NKF-ASN Task Force Recommendations. Performed By: #### 4 6124 #### LAB [address] [address] Jack Mendoza M.D. [id number] HCO3 (Bld) [Moles/Vol] 25 mmol/L Normal 21-32 [facility] Comment on above: Order Comment: [facility] has implemented the eGFR calculation approach that does not have a coefficient for race that conforms to the NKF-ASN Task Force Recommendations. Performed By: #### 4 6124 #### LAB [address] [address] Jack Mendoza M.D. [id number] Potassium [Moles/Vol] 3.8 mmol/L Normal 3.5-5.1 [facility] Comment on above: Order Comment: [facility] has implemented the eGFR calculation approach that does not have a coefficient for race that conforms to the NKF-ASN Task Force Recommendations. Performed By: #### 4 6124 ####[facility] [address] [address] Jack Mendoza M.D. [id number] Sodium [Moles/Vol] 140 mmol/L Normal 135-145 [facility] Comment on above: Order Comment: [facility] has implemented the eGFR calculation approach that does not have a coefficient for race that conforms to the NKF-ASN Task Force Recommendations. Performed By: #### 4 6124 #### LAB [address] [address] Jack Mendoza M.D. [id number] Urea nitrogen [Mass/Vol] 14 mg/dL Normal 8-25 [facility] Comment on above: Order Comment: [facility] has implemented the eGFR calculation approach that does not have a coefficient for race that conforms to the NKF-ASN Task Force Recommendations. Performed By: #### 4 6124 #### LAB [address] [address] Jack Mendoza M.D. [id number] Urea nitrogen/Creatinine [Mass ratio] 15.1 mg/mg Normal 10.0-20.0 [facility] Comment on above: Order Comment: [facility] has implemented the eGFR calculation approach that does not have a coefficient for race that conforms to the NKF-ASN Task Force Recommendations. Performed By: #### 4 6124 #### LAB [address] [address] Jack Mendoza M.D. [id number] CBC WITH AUTO DIFFERENTIALon 02-17-2025 AUTO NRBC 0.0 % Normal [facility] Comment on above: Performed By: #### L [id number] ####[facility] [address] [address] Jack Mendoza M.D. [id number] AUTO NRBC ABS COUNT 0.00 K/mcL Normal 0.00-0.00 [facility] Comment on above: Performed By: #### L [id number] ####[facility] [address] [address] Jack Mendoza M.D. [id number] Erythrocyte distribution width (RBC) [Ratio] 19.2 % High 11.6-14.8 [facility] Comment on above: Performed By: #### L [id number] ####[facility] [address] [address] Jack Mendoza M.D. [id number] Hematocrit (Bld) [Volume fraction] 33.2 % Low 41.0-53.0 [facility] Comment on above: Performed By: #### L [id number] ####[facility] [address] [address] Jack Mendoza M.D. [id number] Hemoglobin (Bld) [Mass/Vol] 10.1 g/dL Low 13.5-17.5 [facility] Comment on above: Performed By: #### L [id number] ####[facility] [address] [address] Jack Mendoza M.D. [id number] MCH (RBC) [Entitic mass] 20.5 pg Low 26.0-34.0 [facility] Comment on above: Performed By: #### L [id number] #### LAB [address] [address] Jack Mendoza M.D. [id number] MCV (RBC) [Entitic vol] 67.5 fL Low 80.0-100.0 [facility] Comment on above: Performed By: #### L [id number] #### LAB [address] [address] Jack Mendoza M.D. [id number] MEAN CORPUSCULAR HEMOGLOBIN CONC 30.4 g/dL Low 31.0-37.0 [facility] Comment on above: Performed By: #### L [id number] #### LAB [address] [address] Jack Mendoza M.D. [id number] Platelet mean volume (Bld) [Entitic vol] 10.0 fL Normal 9.4-12.4 [facility] Comment on above: Performed By: #### L [id number] #### LAB [address] [place] [address] Jack Mendoza M.D. [id number] Platelets (Bld) [#/Vol] 82 10*3/uL Low 150-400 [facility] Comment on above: Performed By: #### L [id number] ####[facility] [address] [address] Jack Mendoza M.D. [id number] RBC (Bld) [#/Vol] 4.92 10*6/uL Normal 4.50-5.90 [facility] Comment on above: Performed By: #### L [id number] ####[facility] [address] [place] [address] Jack Mendoza M.D. [id number] WBC (Bld) [#/Vol] 2.50 10*3/uL Low 4.50-11.00 [facility] Comment on above: Performed By: #### L [id number] #### LAB [address] [address] Jack Mendoza M.D. [id number] CONSULTon 02-17-2025 CONSULT Normal [facility] CRP, INFLAMMATIONon 02-18-20 CRP [Mass/Vol] 23.7 mg/L High 0.0-10.0 [facility] Comment on above: Performed By: #### 4 5334 #### LAB [address] [address] Jack Mendoza M.D. [id number] MAGNESIUM LEVELon 02-17-2025 Magnesium [Mass/Vol] 1.6 mg/dL Normal 1.6-2.4 [facility] Comment on above: Performed By: #### 4 6109 #### LAB [address] [address] Jack Mendoza M.D. [id number] MANUAL DIFFERENTIALon 2024 BASOPHILS - ABS (DIFF) 0.00 K/mcL Normal 0.00-0.30 [facility] Comment on above: Performed By: #### 4 5456 #### LAB [address] [address] Jack Mendoza M.D. [id number] BASOPHILS - REL (DIFF) 0.0 % [facility] Comment on above: Performed By: #### 4 5456 #### LAB [address] [address] Jack Mendoza M.D. [id number] EOSINOPHILS - ABS (DIFF) 0.08 K/mcL Normal 0.00-0.50 [facility] Comment on above: Performed By: #### 4 5456 #### LAB [address] [address] Jack Mendoza M.D. [id number] EOSINOPHILS - REL (DIFF) 3.0 % [facility] Comment on above: Performed By: #### 4 5465 #### LAB [address] [address] Jack Mendoza M.D. [id number] LYMPHOCYTES - ABS (DIFF) 0.70 K/mcL Low 0.90-4.00 [facility] Comment on above: Performed By: #### 4 5456 #### LAB [address] [address] Jack Mendoza M.D. [id number] LYMPHOCYTES - REL (DIFF) 28.0 % [facility] Comment on above: Performed By: #### 4 5456 #### LAB [address] [address] Jack Mendoza M.D. [id number] MONOCYTES - ABS (DIFF) 0.10 K/mcL Low 0.30-0.90 [facility] Comment on above: Performed By: #### 4 5456 #### LAB [address] [address] Jack Mendoza M.D. [id number] MONOCYTES - REL (DIFF) 4.0 % [facility] Comment on above: Performed By: #### 4 5456 #### LAB [address] [address] Jack Mendoza M.D. [id number] NEUTROPHILS - ABS (DIFF) 1.63 K/mcL Low 1.70-7.00 [facility] Comment on above: Performed By: #### 4 5456 #### LAB [address] [address] Jack Mendoza M.D. [id number] NEUTROPHILS - REL (DIFF) 65.0 % [facility] Comment on above: Performed By: #### 4 5456 #### LAB [address] [address] Jack Mendoza M.D. [id number] MORPHOLOGYon 02-17-2025 OVAL SCAN Moderate [facility] Comment on above: Performed By: #### L [id number] #### LAB [address] [address] Jack Mendoza M.D. [id number] PLATELET ESTIMATE Decreased Abnormal Normal [facility] Comment on above: Performed By: #### L AB295 ####[facility] [address] [address] Jack Mendoza M.D. [id number] POLY SCAN Few Normal [facility] Comment on above: Performed By: #### L AB295 ####[facility] [address] [address] Jack Mendoza M.D. [id number] RBC MORPH SCAN See Comment Normal [facility] Comment on above: Result Comment: RBC Indices confirmed with manual peripheral smear review. Performed By: #### L AB295 ####[facility] [address] [address] Jack Mendoza M.D. [id number] TARGET CELL SCAN Moderate Normal [facility] Comment on above: Performed By: #### L AB295 ####[facility] [address] [address] Jack Mendoza M.D. [id number] PROCALCITONINon 02-17-2025 PROCALCITONIN 0.16 ng/ml Normal <0.50 [facility] Comment on above: Order Comment: Resul ts <0.50 ng/ml represent a low risk of severe sepsis and/or septic shock. Performed By: #### 4 7652 ####[facility] [address] Venancio Richardson M.D. [id number] SEDIMENTATION RATEon 025 SEDIMENTATION RATE, ERYTHROCYTE 113 mm/hr High 0-20 [facility] Comment on above: Performed By: #### 4 6477 ####[facility] [address] [address] Jack Mendoza M.D. [id number] XR KNEE LEFT 2 VIEWS ([address])on 02-17-2025 XR KNEE LEFT 2 VIEWS (STANDARD) [facility] Comment on above: Order Comment: Injur y/Trauma or Illness?:Illness/OtherHow long have you had these symptoms (acute/chronic)?:ChronicReason for exam?:Left knee pain and swellingHistory of cancer?:uSurgeries, chemotherapy, or radiation?:uType of Exam?:InitialAdditional signs and symptoms?:NKI BASIC METABOLIC PANELon 01-21 Anion gap [Moles/Vol] 13 mmol/L Normal 10-20 [facility] Comment on above: Order Comment: [facility] has implemented the eGFR calculation approach that does not have a coefficient for race that conforms to the NKF-ASN Task Force Recommendations. Performed By: #### 4 6124 #### LAB [address] [address] Jack Mendoza M.D. [id number] Calcium [Mass/Vol] 8.7 mg/dL Normal 8.4-10.2 [facility] Comment on above: Order Comment: [facility] has implemented the eGFR calculation approach that does not have a coefficient for race that conforms to the NKF-ASN Task Force Recommendations. Performed By: #### 4 6124 #### LAB [address] [address] aJck Mendoza M.D. [id number] Chloride [Moles/Vol] 105 mmol/L Normal 98-108 [facility] Comment on above: Order Comment: [facility] has implemented the eGFR calculation approach that does not have a coefficient for race that conforms to the NKF-ASN Task Force Recommendations. Performed By: #### 4 6124 #### LAB [address] [address] Jack Mendoza M.D. [id number] Creatinine [Mass/Vol] 0.94 mg/dL Normal 0.50-1.30 [facility] Comment on above: Order Comment: [facility] has implemented the eGFR calculation approach that does not have a coefficient for race that conforms to the NKF-ASN Task Force Recommendations. Performed By: #### 4 6124 #### LAB [address] [place], [place] [address] Jack Mendoza M.D. [id number] EGFR 94 mL/min/1.73 m2 Normal >=60 [facility] Comment on above: Order Comment: [facility] has implemented the eGFR calculation approach that does not have a coefficient for race that conforms to the NKF-ASN Task Force Recommendations. Result Comment: Ashley mated GFR was calculated using the 2020 CKD-EPI creatinine equation. Performed By: #### 4 6124 #### LAB [address] [address] Jack Mendoza M.D. [id number] Glucose [Mass/Vol] 110 mg/dL High 65-99 [facility] Comment on above: Order Comment: [facility] has implemented the eGFR calculation approach that does not have a coefficient for race that conforms to the NKF-ASN Task Force Recommendations. Performed By: #### 4 6134 #### LAB [address] [address] Jack Mendoza M.D. [id number] HCO3 (Bld) [Moles/Vol] 26 mmol/L Normal 21-32 [facility] Comment on above: Order Comment: [facility] has implemented the eGFR calculation approach that does not have a coefficient for race that conforms to the NKF-ASN Task Force Recommendations. Performed By: #### 4 6127 #### LAB [address] [address] Jack Mendoza M.D. [id number] Potassium [Moles/Vol] 4.0 mmol/L Normal 3.5-5.1 [facility] Comment on above: Order Comment: [facility] has implemented the eGFR calculation approach that does not have a coefficient for race that conforms to the NKF-ASN Task Force Recommendations. Performed By: #### 4 6158 ####[facility] [address] [address] Jack Mendoza M.D. [id number] Sodium [Moles/Vol] 140 mmol/L Normal 135-145 [facility] Comment on above: Order Comment: [facility] has implemented the eGFR calculation approach that does not have a coefficient for race that conforms to the NKF-ASN Task Force Recommendations. Performed By: #### 4 6123 ####[facility] [address] [place] [address] Jack Mendoza M.D. [id number] Urea nitrogen [Mass/Vol] 17 mg/dL Normal 8-25 [facility] Comment on above: Order Comment: [facility] has implemented the eGFR calculation approach that does not have a coefficient for race that conforms to the NKF-ASN Task Force Recommendations. Performed By: #### 4 6124 #### LAB [address] [place] [address] Jack Mendoza M.D. [id number] Urea nitrogen/Creatinine [Mass ratio] 18.1 mg/mg Normal 10.0-20.0 [facility] Comment on above: Order Comment: [facility] has implemented the eGFR calculation approach that does not have a coefficient for race that conforms to the NKF-ASN Task Force Recommendations. Performed By: #### 4 6124 #### LAB [address] [place] [address] Jack Mendoza M.D. [id number] CBC WITH AUTO DIFFERENTIALon 02-16-2025 AUTO NRBC 0.0 % [facility] Comment on above: Performed By: #### L [id number] #### LAB [address] [place] [address] Jack Mendoza M.D. [id number] AUTO NRBC ABS COUNT 0.00 K/mcL Normal 0.00-0.00 [facility] Comment on above: Performed By: #### L [id number] #### LAB [address] [address] Jack Mendoza M.D. [id number] BASOPHILS ABSOLUTE COUNT 0.01 K/mcL Normal 0.00-0.30 [facility] Comment on above: Performed By: #### L [id number] #### LAB [address] [place] [address] Jack Mendoza M.D. [id number] Basophils/100 WBC (Bld) 0.4 % [facility] Comment on above: Performed By: #### L [id number] #### LAB [address] [place] [address] Jack Mendoza M.D. [id number] Eosinophils (Bld) [#/Vol] 0.08 10*3/uL Normal 0.00-0.50 [facility] Comment on above: Performed By: #### L [id number] #### LAB [address] [address] Jack Mendoza M.D. [id number] Eosinophils/100 WBC (Bld) 3.4 % Normal [facility] Comment on above: Performed By: #### L [id number] #### LAB [address] [address] Jack Mnedoza M.D. [id number] Erythrocyte distribution width (RBC) [Ratio] 19.5 % High 11.6-14.8 [facility] Comment on above: Performed By: #### L [id number] #### LAB [address] [place] [address] Jack Mendoza M.D. [id number] Hematocrit (Bld) [Volume fraction] 34.2 % Low 41.0-53.0 [facility] Comment on above: Performed By: #### L [id number] #### LAB [address] [address] Jack Mendoza M.D. [id number] Hemoglobin (Bld) [Mass/Vol] 10.3 g/dL Low 13.5-17.5 [facility] Comment on above: Performed By: #### L [id number] #### LAB [address] [address] Jack Mendoza M.D. [id number] IG ABSOLUTE 0.01 K/mcL Normal 0.00-0.30 [facility] Comment on above: Performed By: #### L [id number] #### LAB [address] [place] [address] Jack Mendoza M.D. [id number] IG PERCENT 0.40 % Normal [facility] Comment on above: Result Comment: The IG parameter is the percentage of metamyelocytes, myelocytes and promyelocytes. An immature granulocyte count (IG) of 1% or more suggests the possibility of infection, an IG count of 3% is very likely related to an infection. Performed By: #### L [id number] #### LAB [address] [place] [address] Jack Mendoza M.D. [id number] Lymphocytes (Bld) [#/Vol] 0.80 10*3/uL Low 0.90-4.00 [facility] Comment on above: Performed By: #### L [id number] #### LAB [address] [address] Jack Mendoza M.D. [id number] Lymphocytes/100 WBC (Bld) 34.3 % Normal [facility] Comment on above: Performed By: #### L [id number] #### LAB [address] [place] [address] Jack Mendoza M.D. [id number] MCH (RBC) [Entitic mass] 20.4 pg Low 26.0-34.0 [facility] Comment on above: Performed By: #### L [id number] #### LAB [address] [place] [address] Jack Mendoza M.D. [id number] MCV (RBC) [Entitic vol] 67.7 fL Low 80.0-100.0 [facility] Comment on above: Performed By: #### L [id number] #### LAB [address] [place] [address] Jack Mendoza M.D. [id number] MEAN CORPUSCULAR HEMOGLOBIN CONC 30.1 g/dL Low 31.0-37.0 [facility] Comment on above: Performed By: #### L [id number] #### LAB [address] [place] [address] Jack Mendoza M.D. [id number] Monocytes (Bld) [#/Vol] 0.18 10*3/uL Low 0.30-0.90 [facility] Comment on above: Performed By: #### L [id number] #### LAB [address] [place], [place] [address] Jack Mendoza M.D. [id number] Monocytes/100 WBC (Bld) 7.7 % Normal [facility] Comment on above: Performed By: #### L [id number] #### LAB [address] [address] Jack Mendoza M.D. [id number] NEUTROPHILS ABSOLUTE COUNT 1.25 K/mcL Low 1.70-7.00 [facility] Comment on above: Performed By: #### L [id number] ####[facility] [address] [address] Jack Mendoza M.D. [id number] Neutrophils/100 WBC (Bld) 53.8 % Normal [facility] Comment on above: Performed By: #### L [id number] #### LAB [address] [address] Jack Mendoza M.D. [id number] Platelets (Bld) [#/Vol] 88 10*3/uL Low 150-400 [facility] Comment on above: Performed By: #### L [id number] ####[facility] [address] [address] Jack Mendoza M.D. [id number] RBC (Bld) [#/Vol] 5.05 10*6/uL Normal 4.50-5.90 [facility] Comment on above: Performed By: #### L [id number] #### LAB [address] [address] Jack Mendoza M.D. [id number] WBC (Bld) [#/Vol] 2.33 10*3/uL Low 4.50-11.00 [facility] Comment on above: Performed By: #### L [id number] #### LAB [address] [address] Jack Mendoza M.D. [id number] MAGNESIUM LEVELon 02-16-2025 Magnesium [Mass/Vol] 1.9 mg/dL Normal 1.6-2.4 [facility] Comment on above: Performed By: #### 4 6109 #### LAB [address] [place], [place] [address] Jack Mendoza M.D. [id number] BASIC METABOLIC PANELon 01-21 Anion gap [Moles/Vol] 12 mmol/L Normal 10-20 [facility] Comment on above: Order Comment: [facility] has implemented the eGFR calculation approach that does not have a coefficient for race that conforms to the NKF-ASN Task Force Recommendations. Performed By: #### 4 6124 #### LAB [address] [place], [place] [address] Jack Mendoza M.D. [id number] Calcium [Mass/Vol] 8.7 mg/dL Normal 8.4-10.2 [facility] Comment on above: Order Comment: [facility] has implemented the eGFR calculation approach that does not have a coefficient for race that conforms to the NKF-ASN Task Force Recommendations. Performed By: #### 4 6124 #### LAB [address] [place] [address] Jack Mendoza M.D. [id number] Chloride [Moles/Vol] 113 mmol/L High 98-108 [facility] Comment on above: Order Comment: [facility] has implemented the eGFR calculation approach that does not have a coefficient for race that conforms to the NKF-ASN Task Force Recommendations. Performed By: #### 4 6124 #### LAB [address] [place] [address] Jack Mendoza M.D. [id number] Creatinine [Mass/Vol] 1.08 mg/dL Normal 0.50-1.30 [facility] Comment on above: Order Comment: [facility] has implemented the eGFR calculation approach that does not have a coefficient for race that conforms to the NKF-ASN Task Force Recommendations. Performed By: #### 4 6124 #### LAB [address] [place] [address] Jack Mendoza M.D. [id number] EGFR 80 mL/min/1.73 m2 Normal >=60 [facility] Comment on above: Order Comment: [facility] has implemented the eGFR calculation approach that does not have a coefficient for race that conforms to the NKF-ASN Task Force Recommendations. Result Comment: Ashley mated GFR was calculated using the 2020 CKD-EPI creatinine equation. Performed By: #### 4 6138 ####[facility] [address] [place] [address] Jack Mendoza M.D. [id number] Glucose [Mass/Vol] 117 mg/dL High 65-99 [facility] Comment on above: Order Comment: [facility] has implemented the eGFR calculation approach that does not have a coefficient for race that conforms to the NKF-ASN Task Force Recommendations. Performed By: #### 4 6181 #### LAB [address] [place] [address] Jack Mendoza M.D. [id number] HCO3 (Bld) [Moles/Vol] 28 mmol/L Normal 21-32 [facility] Comment on above: Order Comment: [facility] has implemented the eGFR calculation approach that does not have a coefficient for race that conforms to the NKF-ASN Task Force Recommendations. Performed By: #### 4 6106 #### LAB [address] [address] Jack Mendoza M.D. [id number] Potassium [Moles/Vol] 4.4 mmol/L Normal 3.5-5.1 [facility] Comment on above: Order Comment: [facility] has implemented the eGFR calculation approach that does not have a coefficient for race that conforms to the NKF-ASN Task Force Recommendations. Performed By: #### 4 6178 ####[facility] [address] [address] Jack Mendoza M.D. [id number] Sodium [Moles/Vol] 149 mmol/L High 135-145 [facility] Comment on above: Order Comment: [facility] has implemented the eGFR calculation approach that does not have a coefficient for race that conforms to the NKF-ASN Task Force Recommendations. Performed By: #### 4 6124 ####[facility] [address] [address] Jack Mendoza M.D. [id number] Urea nitrogen [Mass/Vol] 20 mg/dL Normal 8-25 [facility] Comment on above: Order Comment: [facility] has implemented the eGFR calculation approach that does not have a coefficient for race that conforms to the NKF-ASN Task Force Recommendations. Performed By: #### 4 6124 #### LAB [address] [address] Jack Mendoza M.D. [id number] Urea nitrogen/Creatinine [Mass ratio] 18.5 mg/mg Normal 10.0-20.0 [facility] Comment on above: Order Comment: [facility] has implemented the eGFR calculation approach that does not have a coefficient for race that conforms to the NKF-ASN Task Force Recommendations. Performed By: #### 4 6124 #### LAB [address] [address] Jack Mendoza M.D. [id number] CBC WITH AUTO DIFFERENTIALon 02-15-2025 AUTO NRBC 0.0 % [facility] Comment on above: Performed By: #### L [id number] ####[facility] [address] [address] Jack Mendoza M.D. [id number] AUTO NRBC ABS COUNT 0.00 K/mcL Normal 0.00-0.00 [facility] Comment on above: Performed By: #### L [id number] ####[facility] [address] [address] Jack Mendoza M.D. [id number] BASOPHILS ABSOLUTE COUNT 0.01 K/mcL Normal 0.00-0.30 [facility] Comment on above: Performed By: #### L [id number] ####[facility] [address] [address] Jack Mendoza M.D. [id number] Basophils/100 WBC (Bld) 0.5 % [facility] Comment on above: Performed By: #### L [id number] ####[facility] [address] [address] Jack Mendoza M.D. [id number] Eosinophils (Bld) [#/Vol] 0.08 10*3/uL Normal 0.00-0.50 [facility] Comment on above: Performed By: #### L [id number] #### LAB [address] [address] Jack Mnedoza M.D. [id number] Eosinophils/100 WBC (Bld) 3.6 % Normal [facility] Comment on above: Performed By: #### L [id number] #### LAB [address] [address] Jack Mendoza M.D. [id number] Erythrocyte distribution width (RBC) [Ratio] 19.6 % High 11.6-14.8 [facility] Comment on above: Performed By: #### L [id number] #### LAB [address] [address] Jack Mendoza M.D. [id number] Hematocrit (Bld) [Volume fraction] 31.8 % Low 41.0-53.0 [facility] Comment on above: Performed By: #### L [id number] #### LAB [address] [address] Jack Mendoza M.D. [id number] Hemoglobin (Bld) [Mass/Vol] 9.5 g/dL Low 13.5-17.5 [facility] Comment on above: Performed By: #### L [id number] #### LAB [address] [address] Jack Mendoza M.D. [id number] IG ABSOLUTE 0.02 K/mcL Normal 0.00-0.30 [facility] Comment on above: Performed By: #### L [id number] #### LAB [address] [address] Jack Mendoza M.D. [id number] IG PERCENT 0.90 % Normal [facility] Comment on above: Result Comment: The IG parameter is the percentage of metamyelocytes, myelocytes and promyelocytes. An immature granulocyte count (IG) of 1% or more suggests the possibility of infection, an IG count of 3% is very likely related to an infection. Performed By: #### L [id number] #### LAB [address] [place] [address] Jack Mendoza M.D. [id number] Lymphocytes (Bld) [#/Vol] 0.72 10*3/uL Low 0.90-4.00 [facility] Comment on above: Performed By: #### L [id number] #### LAB [address] [address] Jack Mendoza M.D. [id number] Lymphocytes/100 WBC (Bld) 32.6 % Normal [facility] Comment on above: Performed By: #### L [id number] #### LAB [address] [place] [address] Jack Mendoza M.D. [id number] MCH (RBC) [Entitic mass] 20.2 pg Low 26.0-34.0 [facility] Comment on above: Performed By: #### L [id number] #### LAB [address] [place] [address] Jack Mendoza M.D. [id number] MCV (RBC) [Entitic vol] 67.5 fL Low 80.0-100.0 [facility] Comment on above: Performed By: #### L [id number] #### LAB [address] [place] [address] Jack Mendoza M.D. [id number] MEAN CORPUSCULAR HEMOGLOBIN CONC 29.9 g/dL Low 31.0-37.0 [facility] Comment on above: Performed By: #### L [id number] #### LAB [address] [place] [address] Jack Mendoza M.D. [id number] Monocytes (Bld) [#/Vol] 0.20 10*3/uL Low 0.30-0.90 [facility] Comment on above: Performed By: #### L [id number] #### LAB [address] [address] Jack Mendoza M.D. [id number] Monocytes/100 WBC (Bld) 9.0 % Normal [facility] Comment on above: Performed By: #### L [id number] #### LAB [address] [address] Jack Mendoza M.D. [id number] NEUTROPHILS ABSOLUTE COUNT 1.18 K/mcL Low 1.70-7.00 [facility] Comment on above: Performed By: #### L [id number] #### LAB [address] [address] Jack Mendoza M.D. [id number] Neutrophils/100 WBC (Bld) 53.4 % Normal [facility] Comment on above: Performed By: #### L [id number] #### LAB [address] [address] Jack Mendoza M.D. [id number] Platelet mean volume (Bld) [Entitic vol] 9.8 fL Normal 9.4-12.4 [facility] Comment on above: Performed By: #### L [id number] #### LAB [address] [address] Jack Mendoza M.D. [id number] Platelets (Bld) [#/Vol] 88 10*3/uL Low 150-400 [facility] Comment on above: Performed By: #### L [id number] #### LAB [address] [address] Jack Mendoza M.D. [id number] RBC (Bld) [#/Vol] 4.71 10*6/uL Normal 4.50-5.90 [facility] Comment on above: Performed By: #### L [id number] #### LAB [address] [address] Jack Mendoza M.D. [id number] WBC (Bld) [#/Vol] 2.21 10*3/uL Low 4.50-11.00 [facility] Comment on above: Performed By: #### L [id number] #### LAB [address] [place], [place] [address] Jack Mendoza M[address]D. [id number] CT KNEE RIGHT WITHOUT CONTRA STon 02-15-2025 CT KNEE RIGHT WITHOUT CONTRAST Normal [facility] Comment on above: Order Comment: Injur y/Trauma or Illness?:Illness/OtherHow long have you had these symptoms (acute/chronic)?:AcuteReason for exam?:R knee swellingType of Exam?:InitialAdditional signs and symptoms?:Per RN, pt was seen by doctor and told to come to ED for knee issues. Knee replacement done in 2019 MAGNESIUM LEVELon 02-15-2025 Magnesium [Mass/Vol] 1.8 mg/dL Normal 1.6-2.4 [facility] Comment on above: Performed By: #### 4 6109 #### LAB [address] [address] Jack Mendoza M.D. [id number] XR MODIFIED BARIUM SWALLOWon 02-15-2025 XR MODIFIED BARIUM SWALLOW Normal [facility] Comment on above: Order Comment: Injur y/Trauma or Illness?:Illness/OtherHow long have you had these symptoms (acute/chronic)?:AcuteReason for exam?:dysphagiaType of Exam?:InitialAdditional signs and symptoms?:nFluoro time in minutes:1.18Fluoro dose in mGy?:56.5 B12/FOLATEon 02-14-2025 Cobalamin (Vitamin B12) [Mass/Vol] 1010 pg/mL Normal 232-1245 [facility] Comment on above: Performed By: #### 4 6967 #### LAB [address] [place], [place] [address] Jack Mendoza M.D. [id number] FOLATE 13.7 ng/mL Normal 3.1-17.5 [facility] Comment on above: Result Comment: Defi cient <2.2Borderline 2.2 - 3.0Excessive >17.5 Performed By: #### 4 6967 #### LAB [address] [place], [place] [address] Jack Mendoza M.D. [id number] BASIC METABOLIC PANELon 01-215 Anion gap [Moles/Vol] 13 mmol/L Normal 10-20 [facility] Comment on above: Order Comment: [facility] has implemented the eGFR calculation approach that does not have a coefficient for race that conforms to the NKF-ASN Task Force Recommendations. Performed By: #### 4 6124 #### LAB [address] [address] Jack Mendoza M.D. [id number] Calcium [Mass/Vol] 8.8 mg/dL Normal 8.4-10.2 [facility] Comment on above: Order Comment: [facility] has implemented the eGFR calculation approach that does not have a coefficient for race that conforms to the NKF-ASN Task Force Recommendations. Performed By: #### 4 6124 #### LAB [address] [address] Jack Mendoza M.D. [id number] Chloride [Moles/Vol] 111 mmol/L High 98-108 [facility] Comment on above: Order Comment: [facility] has implemented the eGFR calculation approach that does not have a coefficient for race that conforms to the NKF-ASN Task Force Recommendations. Performed By: #### 4 6124 #### LAB [address] [address] Jack Mendoza M.D. [id number] Creatinine [Mass/Vol] 1.16 mg/dL Normal 0.50-1.30 [facility] Comment on above: Order Comment: [facility] has implemented the eGFR calculation approach that does not have a coefficient for race that conforms to the NKF-ASN Task Force Recommendations. Performed By: #### 4 6124 #### LAB [address] [address] Jack Mendoza M.D. [id number] EGFR 73 mL/min/1.73 m2 Normal >=60 [facility] Comment on above: Order Comment: [facility] has implemented the eGFR calculation approach that does not have a coefficient for race that conforms to the NKF-ASN Task Force Recommendations. Result Comment: Ashley mated GFR was calculated using the 2020 CKD-EPI creatinine equation. Performed By: #### 4 6124 #### LAB [address] [address] Jack Mendoza M.D. [id number] Glucose [Mass/Vol] 125 mg/dL High 65-99 [facility] Comment on above: Order Comment: [facility] has implemented the eGFR calculation approach that does not have a coefficient for race that conforms to the NKF-ASN Task Force Recommendations. Performed By: #### 4 6124 #### LAB [address] [address] Jack Mendoza M.D. [id number] HCO3 (Bld) [Moles/Vol] 25 mmol/L Normal 21-32 [facility] Comment on above: Order Comment: [facility] has implemented the eGFR calculation approach that does not have a coefficient for race that conforms to the NKF-ASN Task Force Recommendations. Performed By: #### 4 6124 #### LAB [address] [address] Jack Mendoza M.D. [id number] Potassium [Moles/Vol] 4.6 mmol/L Normal 3.5-5.1 [facility] Comment on above: Order Comment: [facility] has implemented the eGFR calculation approach that does not have a coefficient for race that conforms to the NKF-ASN Task Force Recommendations. Performed By: #### 4 6124 #### LAB [address] [address] Jack Mendoza M.D. [id number] Sodium [Moles/Vol] 144 mmol/L Normal 135-145 [facility] Comment on above: Order Comment: [facility] has implemented the eGFR calculation approach that does not have a coefficient for race that conforms to the NKF-ASN Task Force Recommendations. Performed By: #### 4 6124 #### LAB [address] [address] Jack Mendoza M.D. [id number] Urea nitrogen [Mass/Vol] 23 mg/dL Normal 8-25 [facility] Comment on above: Order Comment: [facility] has implemented the eGFR calculation approach that does not have a coefficient for race that conforms to the NKF-ASN Task Force Recommendations. Performed By: #### 4 6124 #### LAB [address] [address] Jack Mendoza M.D. [id number] Urea nitrogen/Creatinine [Mass ratio] 19.8 mg/mg Normal 10.0-20.0 [facility] Comment on above: Order Comment: [facility] has implemented the eGFR calculation approach that does not have a coefficient for race that conforms to the NKF-ASN Task Force Recommendations. Performed By: #### 4 6124 ####[facility] [address] [address] Jack Mendoza M.D. [id number] CBC WITH AUTO DIFFERENTIALon 02-14-2025 AUTO NRBC 0.0 % Normal [facility] Comment on above: Performed By: #### L [id number] ####[facility] [address] [address] Jack Mendoza M.D. [id number] AUTO NRBC ABS COUNT 0.00 K/mcL Normal 0.00-0.00 [facility] Comment on above: Performed By: #### L [id number] ####[facility] [address] [address] Jack Mendoza M.D. [id number] Erythrocyte distribution width (RBC) [Ratio] 19.9 % High 11.6-14.8 [facility] Comment on above: Performed By: #### L [id number] ####[facility] [address] [address] Jack Mendoza M.D. [id number] Hematocrit (Bld) [Volume fraction] 35.2 % Low 41.0-53.0 [facility] Comment on above: Performed By: #### L [id number] ####[facility] [address] [address] Jack Mendoza M.D. [id number] Hemoglobin (Bld) [Mass/Vol] 10.9 g/dL Low 13.5-17.5 [facility] Comment on above: Performed By: #### L [id number] #### LAB [address] [address] Jack Mendoza M.D. [id number] MCH (RBC) [Entitic mass] 20.6 pg Low 26.0-34.0 [facility] Comment on above: Performed By: #### L [id number] #### LAB [address] [address] Jack Mendoza M.D. [id number] MCV (RBC) [Entitic vol] 66.4 fL Low 80.0-100.0 [facility] Comment on above: Performed By: #### L [id number] #### LAB [address] [address] Jack Mendoza M.D. [id number] MEAN CORPUSCULAR HEMOGLOBIN CONC 31.0 g/dL Normal 31.0-37.0 [facility] Comment on above: Performed By: #### L [id number] #### LAB [address] [address] Jack Mendoza M.D. [id number] Platelet mean volume (Bld) [Entitic vol] 9.8 fL Normal 9.4-12.4 [facility] Comment on above: Performed By: #### L [id number] #### LAB [address] [address] Jack Mendoza M.D. [id number] Platelets (Bld) [#/Vol] 95 10*3/uL Low 150-400 [facility] Comment on above: Performed By: #### L [id number] ####[facility] [address] [address] Jack Mendoza M.D. [id number] RBC (Bld) [#/Vol] 5.30 10*6/uL Normal 4.50-5.90 [facility] Comment on above: Performed By: #### L [id number] #### LAB [address] [id number] Jack Mendoza M.D. [id number] WBC (Bld) [#/Vol] 2.72 10*3/uL Low 4.50-11.00 [facility] Comment on above: Performed By: #### L [id number] #### LAB [address] [address] Jack Mendoza M.D. [id number] CONSULTon 02-14-2025 CONSULT Normal [facility] FIBRINOGENon 02-14-2025 FIBRINOGEN LEVEL 488 mg/dL High 224-483 [facility] Comment on above: Performed By: #### 4 5616 #### LAB [address] [address] Jack Mendoza M.D. [id number] MAGNESIUM LEVELon 02-14-2025 Magnesium [Mass/Vol] 2.0 mg/dL Normal 1.6-2.4 [facility] Comment on above: Performed By: #### 4 6109 #### LAB [address] [address] Jack Mendoza M.D. [id number] MANUAL DIFFERENTIALon 2024 BASOPHILS - ABS (DIFF) 0.00 K/mcL Normal 0.00-0.30 [facility] Comment on above: Performed By: #### 4 5456 #### LAB [address] [address] Jack Mendoza M.D. [id number] BASOPHILS - REL (DIFF) 0.0 % Normal [facility] Comment on above: Performed By: #### 4 5456 #### LAB [address] [address] Jack Mendoza M.D. [id number] EOSINOPHILS - ABS (DIFF) 0.05 K/mcL Normal 0.00-0.50 [facility] Comment on above: Performed By: #### 4 5456 #### LAB [address] [address] Jack Mendoza M.D. [id number] EOSINOPHILS - REL (DIFF) 2.0 % Normal [facility] Comment on above: Performed By: #### 4 5456 #### LAB [address] [address] Jack Mendoza M.D. [id number] LYMPHOCYTES - ABS (DIFF) 0.76 K/mcL Low 0.90-4.00 [facility] Comment on above: Performed By: #### 4 5456 #### LAB [address] [address] Jack Mendoza M.D. [id number] LYMPHOCYTES - REL (DIFF) 28.0 % [facility] Comment on above: Performed By: #### 4 5456 #### LAB [address] [address] Jack Mendoza M.D. [id number] MONOCYTES - ABS (DIFF) 0.14 K/mcL Low 0.30-0.90 [facility] Comment on above: Performed By: #### 4 5456 #### LAB [address] [address] Jack Mendoza M.D. [id number] MONOCYTES - REL (DIFF) 5.0 % [facility] Comment on above: Performed By: #### 4 5456 #### LAB [address] [place] [address] Jack Mendoza M.D. [id number] NEUTROPHILS - ABS (DIFF) 1.77 K/mcL Normal 1.70-7.00 [facility] Comment on above: Performed By: #### 4 5456 #### LAB [address] [address] Jack Mendoza M.D. [id number] NEUTROPHILS - REL (DIFF) 65.0 % [facility] Comment on above: Performed By: #### 4 5456 #### LAB [address] [address] Jack Mendoza M.D. [id number] MORPHOLOGYon 02-14-2025 OVAL SCAN Moderate [facility] Comment on above: Performed By: #### L [id number] #### LAB [address] [address] Jack Mendoza M.D. [id number] PLATELET ESTIMATE Decreased Abnormal Normal [facility] Comment on above: Performed By: #### L AB295 ####[facility] [address] [address] Jack Mendoza M.D. [id number] POLY SCAN Moderate [facility] Comment on above: Performed By: #### L AB295 ####[facility] [address] [address] Jack Mendoza M.D. [id number] RBC MORPH SCAN See Comment Normal [facility] Comment on above: Result Comment: RBC Indices confirmed with manual peripheral smear review. Performed By: #### L AB295 ####[facility] [address] [address] Jack Mendoza M.D. [id number] TARGET CELL SCAN Moderate Normal [facility] Comment on above: Performed By: #### L AB295 ####[facility] [address] [address] Jack Mendoza M.D. [id number] MR BRAIN WITHOUT CONTRASTon 02-14-2025 MR BRAIN WITHOUT CONTRAST [facility] Comment on above: Order Comment: Injur y/Trauma or Illness?:Illness/OtherHow long have you had these symptoms (acute/chronic)?:AcuteReason for exam?:ams, encephalopathy and agitationType of Exam?:InitialAdditional signs and symptoms?:. [facility] Glucose [Mass/Vol] 111 mg/dL [address] Comment on above: Performed By: #### 4 6932 ####[facility] [address] [address] Jack Mendoza M.D. [id number] Glucose [Mass/Vol] 126 mg/dL [address] Comment on above: Performed By: #### 4 6932 ####[facility] [address] [address] Jack Mendoza M.D. [id number] Glucose [Mass/Vol] 118 mg/dL High 65-99 [facility] Comment on above: Performed By: #### 4 6932 #### LAB [address] [address] Jack Mendoza M.D. [id number] Glucose [Mass/Vol] 122 mg/dL High 65 [facility] Comment on above: Performed By: #### 4 6932 #### LAB [address] [address] Jack Mendoza M.D. [id number] PT/INRon 02-14-2025 INR Coag (PPP) [Relative time] 1.2 {INR} High 0.8-1.1 [facility] Comment on above: Order Comment: Paxton miller the induction phase of oral anticoagulation, the INR may not reflect the anticoagulation status of the patient. Therapeutic ranges for INR's are:Most clinical situations: INR 2.0-3.0Mechanical Prosthetic Valve: INR 2.5-3.5Critical: INR >5.0 Performed By: #### 4 6391 #### LAB [address] [address] Jack Mendoza M.D. [id number] PT Coag (PPP) [Time] 15.1 s High 11.8-14.3 [facility] Comment on above: Order Comment: Paxton miller the induction phase of oral anticoagulation, the INR may not reflect the anticoagulation status of the patient. Therapeutic ranges for INR's are:Most clinical situations: INR 2.0-3.0Mechanical Prosthetic Valve: INR 2.5-3.5Critical: INR >5.0 Performed By: #### 4 6391 #### LAB [address] [address] Jack Mendoza M.D. [id number] BASIC METABOLIC PANELon 01-21 Anion gap [Moles/Vol] 13 mmol/L Normal - [facility] Comment on above: Order Comment: [facility] has implemented the eGFR calculation approach that does not have a coefficient for race that conforms to the NKF-ASN Task Force Recommendations. Performed By: #### 4 6124 #### LAB [address] [place], [place] [address] Jack Mendoza M.D. [id number] Calcium [Mass/Vol] 8.7 mg/dL Normal 8.4-10.2 [facility] Comment on above: Order Comment: [facility] has implemented the eGFR calculation approach that does not have a coefficient for race that conforms to the NKF-ASN Task Force Recommendations. Performed By: #### 4 6124 #### LAB [address] [place] [address] Jack Mendoza M.D. [id number] Chloride [Moles/Vol] 110 mmol/L High 98-108 [facility] Comment on above: Order Comment: [facility] has implemented the eGFR calculation approach that does not have a coefficient for race that conforms to the NKF-ASN Task Force Recommendations. Performed By: #### 4 6124 #### LAB [address] [address] Jack Mendoza M.D. [id number] Creatinine [Mass/Vol] 1.41 mg/dL High 0.50-1.30 [facility] Comment on above: Order Comment: [facility] has implemented the eGFR calculation approach that does not have a coefficient for race that conforms to the NKF-ASN Task Force Recommendations. Performed By: #### 4 6124 #### LAB [address] [place] [address] Jack Mendoza M.D. [id number] EGFR 58 mL/min/1.73 m2 Low >=60 [facility] Comment on above: Order Comment: [facility] has implemented the eGFR calculation approach that does not have a coefficient for race that conforms to the NKF-ASN Task Force Recommendations. Result Comment: Ashley mated GFR was calculated using the 2020 CKD-EPI creatinine equation. Performed By: #### 4 6124 #### LAB [address] [place] [address] Jack Mendoza M.D. [id number] Glucose [Mass/Vol] 132 mg/dL High 65-99 [facility] Comment on above: Order Comment: [facility] has implemented the eGFR calculation approach that does not have a coefficient for race that conforms to the NKF-ASN Task Force Recommendations. Performed By: #### 4 6124 #### LAB [address] [place] [address] Jack Mendoza M.D. [id number] HCO3 (Bld) [Moles/Vol] 25 mmol/L Normal 21-32 [facility] Comment on above: Order Comment: [facility] has implemented the eGFR calculation approach that does not have a coefficient for race that conforms to the NKF-ASN Task Force Recommendations. Performed By: #### 4 6124 #### LAB [address] [place] [address] Jack Mendoza M.D. [id number] Potassium [Moles/Vol] 4.7 mmol/L Normal 3.5-5.1 [facility] Comment on above: Order Comment: [facility] has implemented the eGFR calculation approach that does not have a coefficient for race that conforms to the NKF-ASN Task Force Recommendations. Performed By: #### 4 6124 #### LAB [address] [place] [address] Jack Mendoza M.D. [id number] Sodium [Moles/Vol] 143 mmol/L Normal 135-145 [facility] Comment on above: Order Comment: [facility] has implemented the eGFR calculation approach that does not have a coefficient for race that conforms to the NKF-ASN Task Force Recommendations. Performed By: #### 4 6130 #### LAB [address] [place] [address] Jack Mendoza M.D. [id number] Urea nitrogen [Mass/Vol] 36 mg/dL High 8-25 [facility] Comment on above: Order Comment: [facility] has implemented the eGFR calculation approach that does not have a coefficient for race that conforms to the NKF-ASN Task Force Recommendations. Performed By: #### 4 6139 #### LAB [address] [place] [address] Jack Mendoza M.D. [id number] Urea nitrogen/Creatinine [Mass ratio] 25.5 mg/mg High 10.0-20.0 [facility] Comment on above: Order Comment: [facility] has implemented the eGFR calculation approach that does not have a coefficient for race that conforms to the NKF-ASN Task Force Recommendations. Performed By: #### 4 6124 #### LAB [address] [place] [address] Jack Mendoza M.D. [id number] BLOOD CULTURE AEROBIC/ANAERO BICon 02-13-2025 BLOOD CULTURE AEROBIC/ANAEROBIC BLOOD CULTURE No Growth after 5 days [facility] Comment on above: Performed By: #### 4 4014 ####[facility] [address] [address] Jack Mendoza M.D. [id number] BLOOD CULTURE AEROBIC/ANAEROBIC BLOOD CULTURE No Growth after 5 days [facility] Comment on above: Performed By: #### 4 4014 ####[facility] [address] [address] Jack Mendoza M.D. [id number] CBC WITH AUTO DIFFERENTIALon 02-13-2025 AUTO NRBC 0.0 % [facility] Comment on above: Performed By: #### L [id number] ####[facility] [address] [address] Jack Mendoza M.D. [id number] AUTO NRBC ABS COUNT 0.00 K/mcL Normal 0.00-0.00 [facility] Comment on above: Performed By: #### L [id number] ####[facility] [address] [address] Jack Mendoza M.D. [id number] BASOPHILS ABSOLUTE COUNT 0.02 K/mcL Normal 0.00-0.30 [facility] Comment on above: Performed By: #### L [id number] ####[facility] [address] [address] Jack Mendoza M.D. [id number] Basophils/100 WBC (Bld) 0.5 % [facility] Comment on above: Performed By: #### L [id number] #### LAB [address] [address] Jack Mendoza M.D. [id number] Eosinophils (Bld) [#/Vol] 0.12 10*3/uL Normal 0.00-0.50 [facility] Comment on above: Performed By: #### L [id number] #### LAB [address] [address] Jack Mendoza M.D. [id number] Eosinophils/100 WBC (Bld) 2.9 % Normal [facility] Comment on above: Performed By: #### L [id number] #### LAB [address] [address] Jack Mendoza M.D. [id number] Erythrocyte distribution width (RBC) [Ratio] 20.3 % High 11.6-14.8 [facility] Comment on above: Performed By: #### L [id number] #### LAB [address] [address] Jack Mendoza M.D. [id number] Hematocrit (Bld) [Volume fraction] 38.0 % Low 41.0-53.0 [facility] Comment on above: Performed By: #### L [id number] #### LAB [address] [place] [address] Jack Mendoza M.D. [id number] Hemoglobin (Bld) [Mass/Vol] 11.6 g/dL Low 13.5-17.5 [facility] Comment on above: Performed By: #### L [id number] ####[facility] [address] [address] Jack Mendoza M.D. [id number] IG ABSOLUTE 0.01 K/mcL Normal 0.00-0.30 [facility] Comment on above: Performed By: #### L [id number] #### LAB [address] [place] [address] Jack Mendoza M.D. [id number] IG PERCENT 0.20 % [facility] Comment on above: Result Comment: The IG parameter is the percentage of metamyelocytes, myelocytes and promyelocytes. An immature granulocyte count (IG) of 1% or more suggests the possibility of infection, an IG count of 3% is very likely related to an infection. Performed By: #### L [id number] #### LAB [address] [place] [address] Jack Mendoza M.D. [id number] Lymphocytes (Bld) [#/Vol] 1.05 10*3/uL Normal 0.90-4.00 [facility] Comment on above: Performed By: #### L [id number] #### LAB [address] [address] Jack Mendoza M.D. [id number] Lymphocytes/100 WBC (Bld) 25.6 % Normal [facility] Comment on above: Performed By: #### L [id number] #### LAB [address] [address] Jack Mendoza M.D. [id number] MCH (RBC) [Entitic mass] 20.4 pg Low 26.0-34.0 [facility] Comment on above: Performed By: #### L [id number] #### LAB [address] [address] Jack Mendoza M.D. [id number] MCV (RBC) [Entitic vol] 66.7 fL Low 80.0-100.0 [facility] Comment on above: Performed By: #### L [id number] #### LAB [address] [place] [address] Jack Mendoza M.D. [id number] MEAN CORPUSCULAR HEMOGLOBIN CONC 30.5 g/dL Low 31.0-37.0 [facility] Comment on above: Performed By: #### L [id number] #### LAB [address] [place] [address] Jack Mendoza M.D. [id number] Monocytes (Bld) [#/Vol] 0.55 10*3/uL Normal 0.30-0.90 [facility] Comment on above: Performed By: #### L [id number] #### LAB [address] [address] Jack Mendoza M.D. [id number] Monocytes/100 WBC (Bld) 13.4 % Normal [facility] Comment on above: Performed By: #### L [id number] #### LAB [address] [address] Jack Mendoza M.D. [id number] NEUTROPHILS ABSOLUTE COUNT 2.35 K/mcL Normal 1.70-7.00 [facility] Comment on above: Performed By: #### L [id number] #### LAB [address] [address] Jcak Mendoza M.D. [id number] Neutrophils/100 WBC (Bld) 57.4 % Normal [facility] Comment on above: Result Comment: Tiffany pheral smear reviewed manually Performed By: #### L [id number] #### LAB [address] [address] Jack Mendoza M.D. [id number] Platelets (Bld) [#/Vol] 123 10*3/uL Low 150-400 [facility] Comment on above: Performed By: #### L [id number] #### LAB [address] [address] Jack Mendoza M.D. [id number] RBC (Bld) [#/Vol] 5.70 10*6/uL Normal 4.50-5.90 [facility] Comment on above: Performed By: #### L [id number] #### LAB [address] [address] Jack Mendoza M.D. [id number] WBC (Bld) [#/Vol] 4.10 10*3/uL Low 4.50-11.00 [facility] Comment on above: Performed By: #### L [id number] #### LAB [address] [address] Jack Mendoza M.D. [id number] MAGNESIUM LEVELon 02-13-2025 Magnesium [Mass/Vol] 1.9 mg/dL Normal 1.6-2.4 [facility] Comment on above: Performed By: #### 4 6109 ####[facility] [address] [address] Jack Mendoza M.D. [id number] MORPHOLOGYon 02-13-2025 OVAL SCAN Moderate Normal [facility] Comment on above: Performed By: #### L [id number] ####[facility] [address] [address] Jack Mendoza M.D. [id number] PLATELET ESTIMATE Decreased Abnormal Normal [facility] Comment on above: Performed By: #### L AB295 ####[facility] [address] [address] Jack Mendoza M.D. [id number] POLY SCAN Few Normal [facility] Comment on above: Performed By: #### L AB295 ####[facility] [address] [address] Jack Mendoza M.D. [id number] RBC MORPH SCAN See Comment Normal [facility] Comment on above: Result Comment: RBC Indices confirmed with manual peripheral smear review. Performed By: #### L AB295 ####[facility] [address] [address] Jack Mendoza M.D. [id number] TARGET CELL SCAN Moderate Normal [facility] Comment on above: Performed By: #### L [id number] ####[facility] [address] [address] Jack Mendoza M.D. [id number] POC GLUCOSE - [facility] 025 Glucose [Mass/Vol] 137 mg/dL High [address] [place] [address] Comment on above: Performed By: #### 4 6932 ####[facility] [address] [address] Jack Mendoza M.D. [id number] Glucose [Mass/Vol] 160 mg/dL High [address] [place] [address] Comment on above: Performed By: #### 4 6932 ####[facility] [address] [address] Jack Mendoza M.D. [id number] Glucose [Mass/Vol] 129 mg/dL High [address] [place] [address] Comment on above: Performed By: #### 4 6932 ####[facility] [address] [address] Jack Mendoza M.D. [id number] Glucose [Mass/Vol] 111 mg/dL High [address] [place] [address] Comment on above: Performed By: #### 4 6932 #### LAB [address] [address] Jack Mendoza M.D. [id number] Glucose [Mass/Vol] 132 mg/dL High [address] [place] [address] Comment on above: Performed By: #### 4 6932 #### LAB [address] [address] Jack Mendoza M.D. [id number] SPUTUM AEROBIC CULTUREon SPUTUM AEROBIC CULTURE RESPIRATORY CULTURE Normal Sobeida after 48 hrs GRAM STAIN RESULT Many WBC Few Epithelial Cells Moderate Mixed Sobeida Normal [facility] Comment on above: Performed By: #### 4 4046 ####[facility] [address] Venancio Richardson M.D. [id number] XR CHEST PA/APon 02-13-2025 XR CHEST PA/AP [facility] Comment on above: Order Comment: Injur y/Trauma or Illness?:Illness/OtherHow long have you had these symptoms (acute/chronic)?:AcuteReason for exam?:respritoty failureHistory of cancer?:uSurgeries, chemotherapy, or radiation?:uType of Exam?:Subsequent/Follow-upAdditional signs and symptoms?:u AMMONIAon 02-12-2025 AMMONIA 32 micromol/L Normal [facility] Comment on above: Performed By: #### 4 5060 #### LAB [address] [address] Jack Mendoza M.D. [id number] BASIC METABOLIC PANELon 06-2 Anion gap [Moles/Vol] 13 mmol/L Normal 10-20 [facility] Comment on above: Order Comment: [facility] has implemented the eGFR calculation approach that does not have a coefficient for race that conforms to the NKF-ASN Task Force Recommendations. Performed By: #### 4 6124 #### LAB [address] [address] Jack Mendoza M.D. [id number] Calcium [Mass/Vol] 8.3 mg/dL Low 8.4-10.2 [facility] Comment on above: Order Comment: [facility] has implemented the eGFR calculation approach that does not have a coefficient for race that conforms to the NKF-ASN Task Force Recommendations. Performed By: #### 4 6124 #### LAB [address] [address] Jack Mendoza M.D. [id number] Chloride [Moles/Vol] 108 mmol/L Normal 98-108 [facility] Comment on above: Order Comment: [facility] has implemented the eGFR calculation approach that does not have a coefficient for race that conforms to the NKF-ASN Task Force Recommendations. Performed By: #### 4 6124 #### LAB [address] [address] Jack Mendoza M.D. [id number] Creatinine [Mass/Vol] 2.43 mg/dL High 0.50-1.30 [facility] Comment on above: Order Comment: [facility] has implemented the eGFR calculation approach that does not have a coefficient for race that conforms to the NKF-ASN Task Force Recommendations. Performed By: #### 4 6124 #### LAB [address] [address] Jack Mendoza M.D. [id number] EGFR 30 mL/min/1.73 m2 Low >=60 [facility] Comment on above: Order Comment: [facility] has implemented the eGFR calculation approach that does not have a coefficient for race that conforms to the NKF-ASN Task Force Recommendations. Result Comment: Ashley mated GFR was calculated using the 2020 CKD-EPI creatinine equation. Performed By: #### 4 6124 #### LAB [address] [address] Jack Mendoza M.D. [id number] Glucose [Mass/Vol] 129 mg/dL High 65-99 [facility] Comment on above: Order Comment: [facility] has implemented the eGFR calculation approach that does not have a coefficient for race that conforms to the NKF-ASN Task Force Recommendations. Performed By: #### 4 6124 #### LAB [address] [address] Jack Mendoza M.D. [id number] HCO3 (Bld) [Moles/Vol] 23 mmol/L Normal 21-32 [facility] Comment on above: Order Comment: [facility] has implemented the eGFR calculation approach that does not have a coefficient for race that conforms to the NKF-ASN Task Force Recommendations. Performed By: #### 4 6124 #### LAB [address] [address] Jack Mendoza M.D. [id number] Potassium [Moles/Vol] 5.2 mmol/L High 3.5-5.1 [facility] Comment on above: Order Comment: [facility] has implemented the eGFR calculation approach that does not have a coefficient for race that conforms to the NKF-ASN Task Force Recommendations. Performed By: #### 4 6124 #### LAB [address] [address] Jack Mendoza M.D. [id number] Sodium [Moles/Vol] 139 mmol/L Normal 135-145 [facility] Comment on above: Order Comment: [facility] has implemented the eGFR calculation approach that does not have a coefficient for race that conforms to the NKF-ASN Task Force Recommendations. Performed By: #### 4 6124 #### LAB [address] [address] Jack Mendoza M.D. [id number] Urea nitrogen [Mass/Vol] 62 mg/dL High 8-25 [facility] Comment on above: Order Comment: [facility] has implemented the eGFR calculation approach that does not have a coefficient for race that conforms to the NKF-ASN Task Force Recommendations. Performed By: #### 4 6124 #### LAB [address] [place], [place] [address] Jack Mendoza M.D. [id number] Urea nitrogen/Creatinine [Mass ratio] 25.5 mg/mg High 10.0-20.0 [facility] Comment on above: Order Comment: [facility] has implemented the eGFR calculation approach that does not have a coefficient for race that conforms to the NKF-ASN Task Force Recommendations. Performed By: #### 4 6124 #### LAB [address] [address] Jack Mendoza M.D. [id number] Anion gap [Moles/Vol] 18 mmol/L Normal 10-20 [facility] Comment on above: Order Comment: [facility] has implemented the eGFR calculation approach that does not have a coefficient for race that conforms to the NKF-ASN Task Force Recommendations. Performed By: #### 4 6124 #### LAB [address] [address] Jack Mendoza M.D. [id number] Calcium [Mass/Vol] 8.4 mg/dL Normal 8.4-10.2 [facility] Comment on above: Order Comment: [facility] has implemented the eGFR calculation approach that does not have a coefficient for race that conforms to the NKF-ASN Task Force Recommendations. Performed By: #### 4 6116 ####[facility] [address] [place], [place] [address] Jack Mendoza M.D. [id number] Chloride [Moles/Vol] 102 mmol/L Normal 98-108 [facility] Comment on above: Order Comment: [facility] has implemented the eGFR calculation approach that does not have a coefficient for race that conforms to the NKF-ASN Task Force Recommendations. Performed By: #### 4 6115 ####[facility] [address] [address] Jack Mendoza M.D. [id number] Creatinine [Mass/Vol] 3.72 mg/dL High 0.50-1.30 [facility] Comment on above: Order Comment: [facility] has implemented the eGFR calculation approach that does not have a coefficient for race that conforms to the NKF-ASN Task Force Recommendations. Performed By: #### 4 6124 #### LAB [address] [address] Jack Mendoza M.D. [id number] EGFR 18 mL/min/1.73 m2 Low >=60 [facility] Comment on above: Order Comment: [facility] has implemented the eGFR calculation approach that does not have a coefficient for race that conforms to the NKF-ASN Task Force Recommendations. Result Comment: Ashley mated GFR was calculated using the 2020 CKD-EPI creatinine equation. Performed By: #### 4 6124 #### LAB [address] [address] Jack Mendoza M.D. [id number] Glucose [Mass/Vol] 126 mg/dL High 65-99 [facility] Comment on above: Order Comment: [facility] has implemented the eGFR calculation approach that does not have a coefficient for race that conforms to the NKF-ASN Task Force Recommendations. Performed By: #### 4 6124 #### LAB [address] [address] Jack Mendoza M.D. [id number] HCO3 (Bld) [Moles/Vol] 22 mmol/L Normal 21-32 [facility] Comment on above: Order Comment: [facility] has implemented the eGFR calculation approach that does not have a coefficient for race that conforms to the NKF-ASN Task Force Recommendations. Performed By: #### 4 6124 #### LAB [address] [address] Jack Mendoza M.D. [id number] Potassium [Moles/Vol] 5.6 mmol/L High 3.5-5.1 [facility] Comment on above: Order Comment: [facility] has implemented the eGFR calculation approach that does not have a coefficient for race that conforms to the NKF-ASN Task Force Recommendations. Performed By: #### 4 6124 #### LAB [address] [address] Jack Mendoza M.D. [id number] Sodium [Moles/Vol] 136 mmol/L Normal 135-145 [facility] Comment on above: Order Comment: [facility] has implemented the eGFR calculation approach that does not have a coefficient for race that conforms to the NKF-ASN Task Force Recommendations. Performed By: #### 4 6124 #### LAB [address] [address] Jack Mendoza M.D. [id number] Urea nitrogen [Mass/Vol] 81 mg/dL High 8-25 [facility] Comment on above: Order Comment: [facility] has implemented the eGFR calculation approach that does not have a coefficient for race that conforms to the NKF-ASN Task Force Recommendations. Performed By: #### 4 6124 #### LAB [address] [address] Jack Mendoza M.D. [id number] Urea nitrogen/Creatinine [Mass ratio] 21.8 mg/mg High 10.0-20.0 [facility] Comment on above: Order Comment: [facility] has implemented the eGFR calculation approach that does not have a coefficient for race that conforms to the NKF-ASN Task Force Recommendations. Performed By: #### 4 6124 #### LAB [address] [address] Jack Mendoza M.D. [id number] CBC WITH AUTO DIFFERENTIALon 02-12-2025 AUTO NRBC 0.0 % Normal [facility] Comment on above: Performed By: #### L [id number] ####[facility] [address] [address] Jack Mendoza M.D. [id number] AUTO NRBC ABS COUNT 0.00 K/mcL Normal 0.00-0.00 [facility] Comment on above: Performed By: #### L [id number] #### LAB [address] [address] Jack Mendoza M.D. [id number] BASOPHILS ABSOLUTE COUNT 0.04 K/mcL Normal 0.00-0.30 [facility] Comment on above: Performed By: #### L [id number] #### LAB [address] [address] Jack Mendoza M.D. [id number] Basophils/100 WBC (Bld) 0.5 % Normal [facility] Comment on above: Performed By: #### L [id number] #### LAB [address] [address] Jack Mendoza M.D. [id number] Eosinophils (Bld) [#/Vol] 0.19 10*3/uL Normal 0.00-0.50 [facility] Comment on above: Performed By: #### L [id number] #### LAB [address] [address] Jack Mendoza M.D. [id number] Eosinophils/100 WBC (Bld) 2.3 % Normal [facility] Comment on above: Performed By: #### L [id number] #### LAB [address] [address] Jack Mendoza M.D. [id number] Erythrocyte distribution width (RBC) [Ratio] 20.3 % High 11.6-14.8 [facility] Comment on above: Performed By: #### L [id number] #### LAB [address] [address] Jack Mendoza M.D. [id number] Hematocrit (Bld) [Volume fraction] 36.7 % Low 41.0-53.0 [facility] Comment on above: Performed By: #### L [id number] #### LAB [address] [address] Jack Mendoza M.D. [id number] Hemoglobin (Bld) [Mass/Vol] 11.2 g/dL Low 13.5-17.5 [facility] Comment on above: Performed By: #### L [id number] #### LAB [address] [address] Jack Mendoza M.D. [id number] IG ABSOLUTE 0.04 K/mcL Normal 0.00-0.30 [facility] Comment on above: Performed By: #### L [id number] #### LAB [address] [address] Jack Mendoza M.D. [id number] IG PERCENT 0.50 % Normal [facility] Comment on above: Result Comment: The IG parameter is the percentage of metamyelocytes, myelocytes and promyelocytes. An immature granulocyte count (IG) of 1% or more suggests the possibility of infection, an IG count of 3% is very likely related to an infection. Performed By: #### L PE1181 #### LAB [address] [place] [address] Jack Mendoza M.D. [id number] Lymphocytes (Bld) [#/Vol] 1.84 10*3/uL Normal 0.90-4.00 [facility] Comment on above: Performed By: #### L [id number] #### LAB [address] [address] Jack Mendoza M.D. [id number] Lymphocytes/100 WBC (Bld) 22.7 % Normal [facility] Comment on above: Performed By: #### L [id number] #### LAB [address] [address] Jack Mendoza M.D. [id number] MCH (RBC) [Entitic mass] 20.3 pg Low 26.0-34.0 [facility] Comment on above: Performed By: #### L [id number] #### LAB [address] [address] Jack Mendoza M.D. [id number] MCV (RBC) [Entitic vol] 66.6 fL Low 80.0-100.0 [facility] Comment on above: Performed By: #### L [id number] ####[facility] [address] [address] Jack Mendoza M.D. [id number] MEAN CORPUSCULAR HEMOGLOBIN CONC 30.5 g/dL Low 31.0-37.0 [facility] Comment on above: Performed By: #### L [id number] #### LAB [address] [address] Jack Mendoza M.D. [id number] Monocytes (Bld) [#/Vol] 0.84 10*3/uL Normal 0.30-0.90 [facility] Comment on above: Performed By: #### L [id number] #### LAB [address] [address] Jack Mendoza M.D. [id number] Monocytes/100 WBC (Bld) 10.3 % Normal [facility] Comment on above: Performed By: #### L [id number] #### LAB [address] [address] Jack Mendoza M.D. [id number] NEUTROPHILS ABSOLUTE COUNT 5.17 K/mcL Normal 1.70-7.00 [facility] Comment on above: Performed By: #### L [id number] #### LAB [address] [address] Jack Mendoza M.D. [id number] Neutrophils/100 WBC (Bld) 63.7 % Normal [facility] Comment on above: Performed By: #### L [id number] #### LAB [address] [address] Jack Mendoza M.D. [id number] Platelet mean volume (Bld) [Entitic vol] 9.7 fL Normal 9.4-12.4 [facility] Comment on above: Performed By: #### L [id number] ####[facility] [address] [address] Jack Mendoza M.D. [id number] Platelets (Bld) [#/Vol] 205 10*3/uL Normal 150-400 [facility] Comment on above: Performed By: #### L [id number] ####[facility] [address] [address] Jack Mendoza M.D. [id number] RBC (Bld) [#/Vol] 5.51 10*6/uL Normal 4.50-5.90 [facility] Comment on above: Performed By: #### L BS5700 ####[facility] [address] [address] Jack Mendoza M.D. [id number] WBC (Bld) [#/Vol] 8.12 10*3/uL Normal 4.50-11.00 [facility] Comment on above: Performed By: #### L [id number] ####[facility] [address] [address] Jack Mendoza M.D. [id number] CONSULTon 02-12-2025 CONSULT Normal [facility] CPKon 02-12-2025 CPK 74 U/L Normal [address] [place] [address] Comment on above: Performed By: #### 4 8261 ####[facility] [address] [address] Jack Mendoza M.D. [id number] CPK 43 U/L Low 60-225 [facility] Comment on above: Performed By: #### 4 8261 ####[facility] [address] [address] Jack Mendoza M.D. [id number] CRP, INFLAMMATIONon 02-13-20 25 CRP [Mass/Vol] 33.9 mg/L High 0.0-10.0 [facility] Comment on above: Performed By: #### 4 5334 ####[facility] [address] [address] Jack Mendoza M.D. [id number] CT CHEST ABDOMEN PELVIS WITH OUT CONTRASTon 02-12-2025 CT CHEST ABDOMEN PELVIS WITHOUT CONTRAST Normal [facility] Comment on above: Order Comment: Injur y/Trauma or Illness?:Illness/OtherHow long have you had these symptoms (acute/chronic)?:AcuteReason for exam?:marlene, sepsisType of Exam?:InitialAdditional signs and symptoms?:. ECHOCARDIOGRAM COMPLETEon ECHOCARDIOGRAM COMPLETE Normal [facility] ED Prov Noteon 02-12-2025 ED Prov Note Normal [facility] ETHYLENE GLYCOLon 02-12-2025 ETHYLENE GLYCOL Not detected Normal None Detected [facility] Comment on above: Order Comment: Test performed by:[facility] Reference [address] [place] [id number] Result Comment: This Gas Chromatography test was developed and its performance characteristics determined by [facility]. It has not been cleared or approved by the FDA. The laboratory is regulated under CLIA as qualified to perform high-complexity testing. This test is used for clinical purposes. It should not be regarded as investigational or for research. Performed By: #### 4 5562 #### LAB [address] [address] Jack Mendoza M.D. [id number] HEPATIC FUNCTION PANELon Albumin [Mass/Vol] 3.1 g/dL Low 3.2-5.2 [facility] Comment on above: Performed By: #### 4 5866 ####[facility] [address] [address] Jack Mendoza M.D. [id number] ALP [Catalytic activity/Vol] 60 U/L Normal 40-150 [facility] Comment on above: Performed By: #### 4 5866 #### LAB [address] [place] [id number] Jack Mendoza M.D. [id number] ALT [Catalytic activity/Vol] 10 U/L Normal 0-50 U/L [facility] Comment on above: Performed By: #### 4 5866 #### LAB [address] [place] [address] Jack Mendoza M.D. [id number] AST [Catalytic activity/Vol] 22 U/L Normal 0-50 U/L [facility] Comment on above: Performed By: #### 4 5866 #### LAB [address] [id number] Jack Mendoza M.D. [id number] Bilirubin [Mass/Vol] 0.5 mg/dL Normal 0.0-1.3 [facility] Comment on above: Performed By: #### 4 5866 #### LAB [address] [address] Jack Mendoza M.D. [id number] Bilirubin.indirect [Mass/Vol] 0.3 mg/dL Normal 0.0-0.4 [facility] Comment on above: Performed By: #### 4 5866 #### LAB [address] [address] Jack Mendoza M.D. [id number] Protein [Mass/Vol] 7.4 g/dL Normal 6.0-8.0 [facility] Comment on above: Performed By: #### 4 5866 #### LAB [address] [address] Jack Mendoza M.D. [id number] MAGNESIUM LEVELon 02-12-2025 Magnesium [Mass/Vol] 2.3 mg/dL Normal 1.6-2.4 [facility] Comment on above: Performed By: #### 4 6109 #### LAB [address] [address] Jack Mendoza M.D. [id number] MRSA DNA AMPLIFIED PROBEon 0 02-12-2025 MRSA DNA AMPLIFIED PROBE Negative Normal Not Detected, MRSA NEGATIVE [facility] Comment on above: Performed By: #### 4 8061 #### LAB [address] [address] Jack Mendoza M.D. [id number] NT PRO BNPon 02-12-2025 Natriuretic peptide B (Bld) [Mass/Vol] 157 pg/mL Normal 0-300 [facility] Comment on above: Order Comment: Pride Study Cut-offsRule In:< /= 50 Years >450 pg/mL51 Years - 75 Years >900 pg/mL76 Years - 99 Years >1800 pg/mLRule Out:All patients <300 pg/mL Performed By: #### 4 7395 #### LAB [address] [address] Jack Mendoza M.D. [id number] POC ARTERIAL BLOOD [facility] PANEL [facility]2025 [id number] 131.4 mm Hg Normal [facility] Comment on above: Performed By: #### 4 8716 ####[facility] LAB [address] [address] Jack Mendoza M.D. [id number] BASE EXCESS, ARTERIAL -0.7 Normal -2.0-2.0 [facility] Comment on above: Performed By: #### 4 8716 ####[facility] LAB [address] [address] Jack Mendoza M.D. [id number] CALCIUM IONIZED 4.7 mg/dL Normal 4.5-5.3 [facility] Comment on above: Performed By: #### 4 8716 #### LAB [address] [address] Jack Mendoza M.D. [id number] CARBOXYHEMOGLOBIN 1.1 % of total Hb Normal <=1.5 [facility] Comment on above: Result Comment: Refe rence Ranges:Suburban Non-smokers: <1.5%Smokers: 1.5-5.0%Heavy Smokers: 5.0-9.0% Performed By: #### 4 8716 #### LAB [address] [address] Jack Mendoza M.D. [id number] Chloride [Moles/Vol] 106 mmol/L Normal 98-108 [facility] Comment on above: Performed By: #### 4 8716 ####[facility] LAB [address] [address] Jack Mendoza M.D. [id number] FIO2 40 Normal [facility] Comment on above: Performed By: #### 4 8716 ####[facility] LAB [address] [id number] Jack Mendoza M.D. [id number] Glucose [Mass/Vol] 133 mg/dL High 65-99 [facility] Comment on above: Performed By: #### 4 8716 ####[facility] LAB [address] [address] Jack Mendoza M.D. [id number] HCO3 (Bld) [Moles/Vol] 24.2 mmol/L Normal 22.0-26.0 [facility] Comment on above: Performed By: #### 4 8716 ####[facility] LAB [address] [address] Jack Mendoza M.D. [id number] Hematocrit (Bld) [Volume fraction] 36.6 % Low 41.0-53.0 [facility] Comment on above: Performed By: #### 4 8716 #### LAB [address] [address] Jack Mendoza M.D. [id number] Hemoglobin (Bld) [Mass/Vol] 11.9 g/dL Low 13.5-17.5 [facility] Comment on above: Performed By: #### 4 8716 #### LAB [address] [address] Jack Mendoza M.D. [id number] LACTIC ACID, WHOLE BLOOD 1.1 mmol/L Normal 0.6-2.0 [facility] Comment on above: Performed By: #### 4 8716 #### LAB [address] [address] Jack Mendoza M.D. [id number] METHEMOGLOBIN < Normal 0.0-2.0 [facility] Comment on above: Performed By: #### 4 8716 #### LAB [address] [address] Jack Mendoza M.D. [id number] O2HB 96.0 % Normal 94.0-98.0 [facility] Comment on above: Performed By: #### 4 8716 #### LAB [address] [address] Jack Mendoza M.D. [id number] Oxygen saturation in Blood 97.8 % Normal 92.0-99.0 [facility] Comment on above: Performed By: #### 4 8716 #### LAB [address] [id number] Jack Mendoza M.D. [id number] PCO2 ARTERIAL 40.2 mm Hg Normal 35.0-45.0 [facility] Comment on above: Performed By: #### 4 8716 ####[facility] LAB [address] [address] Jack Mendoza M.D. [id number] PEEP RAD 5 Normal [facility] Comment on above: Performed By: #### 4 8716 ####[facility] LAB [address] [id number] Jack Mendoza M.D. [id number] PH ARTERIAL 7.39 Normal 7.35-7.45 [facility] Comment on above: Performed By: #### 4 8716 ####[facility] LAB [address] [address] Jack Mendoza M.D. [id number] PO2 ARTERIAL 97 mm Hg Normal 80-100 [facility] Comment on above: Performed By: #### 4 8716 ####[facility] LAB [address] [address] Jack Mendoza M.D. [id number] Potassium [Moles/Vol] 4.9 mmol/L Normal 3.5-5.1 [facility] Comment on above: Performed By: #### 4 8716 ####[facility] LAB [address] [id number] Jack Mendoza M.D. [id number] RESP RATE RAD 24 Normal [facility] Comment on above: Performed By: #### 4 8716 ####[facility] LAB [address] [address] Jack Mendoza M.D. [id number] Sodium [Moles/Vol] 138 mmol/L Normal 135-145 [facility] Comment on above: Performed By: #### 4 8716 ####[facility] LAB [address] [address] Jack Mendoza M.D. [id number] SPECIMEN SOURCE RADIANCE Radial, left Normal [facility] Comment on above: Performed By: #### 4 8716 ####[facility] LAB [address] [address] Jack Mendoza M.D. [id number] TIDAL VOLUME RAD 460 Normal [facility] Comment on above: Performed By: #### 4 8716 ####[facility] LAB [address] [address] Jack Mendoza M.D. [id number] POC GLUCOSE - [facility] 025 Glucose [Mass/Vol] 136 mg/dL [address] Comment on above: Performed By: #### 4 6932 ####[facility] LAB [address] [address] Jack Mendoza M.D. [id number] Glucose [Mass/Vol] 138 mg/dL [address] Comment on above: Performed By: #### 4 6932 #### LAB [address] [address] Jack Mendoza M.D. [id number] Glucose [Mass/Vol] 123 mg/dL [address] Comment on above: Performed By: #### 4 6932 ####[facility] [address] [address] Jack Mendoza M.D. [id number] Glucose [Mass/Vol] 130 mg/dL [address] Comment on above: Performed By: #### 4 6932 #### LAB [address] [address] Jack Mendoza M.D. [id number] Glucose [Mass/Vol] 121 mg/dL [address] Comment on above: Performed By: #### 4 3539 #### LAB [address] [address] Jack Mendoza M.D. [id number] Glucose [Mass/Vol] 130 mg/dL [address] Comment on above: Performed By: #### 4 5143 #### LAB [address] [address] Jack Mendoza M.D. [id number] Glucose [Mass/Vol] 139 mg/dL High [address] [place] [address] Comment on above: Performed By: #### 4 6932 #### LAB [address] [address] Jack Mendoza M.D. [id number] Glucose [Mass/Vol] 113 mg/dL [address] Comment on above: Performed By: #### 4 6932 #### LAB [address] [address] Jack Mendoza M.D. [id number] Glucose [Mass/Vol] 112 mg/dL High [address] [place] [address] Comment on above: Performed By: #### 4 6932 #### LAB [address] [address] Jack Mendoza M.D. [id number] Glucose [Mass/Vol] 106 mg/dL [address] Comment on above: Performed By: #### 4 6932 #### LAB [address] [address] Jack Mendoza M.D. [id number] PROCALCITONINon 02-12-2025 PROCALCITONIN 0.20 ng/ml Normal <0.50 [facility] Comment on above: Order Comment: Resul ts <0.50 ng/ml represent a low risk of severe sepsis and/or septic shock. Performed By: #### 4 7652 #### LAB [address] [address] Jack Mendoza M.D. [id number] PT/INRon 02-12-2025 INR Coag (PPP) [Relative time] 1.2 {INR} High 0.8-1.1 [facility] Comment on above: Order Comment: Paxton miller the induction phase of oral anticoagulation, the INR may not reflect the anticoagulation status of the patient. Therapeutic ranges for INR's are:Most clinical situations: INR 2.0-3.0Mechanical Prosthetic Valve: INR 2.5-3.5Critical: INR >5.0 Performed By: #### 4 6391 #### LAB [address] [id number] Jack Mendoza M.D. [id number] PT Coag (PPP) [Time] 15.0 s High 11.8-14.3 [facility] Comment on above: Order Comment: Markliz miller the induction phase of oral anticoagulation, the INR may not reflect the anticoagulation status of the patient. Therapeutic ranges for INR's are:Most clinical situations: INR 2.0-3.0Mechanical Prosthetic Valve: INR 2.5-3.5Critical: INR >5.0 Performed By: #### 4 6391 #### LAB [address] [address] Jack Mendoza M.D. [id number] RESPIRATORY PCR PANELon 01-21 RESPIRATORY PCR PANEL Normal Not Detected [facility] Comment on above: Performed By: #### L [id number] ####[facility] [address] [place] [address] Venancio Richardson M.D. [id number] SEDIMENTATION RATEon 025 SEDIMENTATION RATE, ERYTHROCYTE 102 mm/hr High 0-20 [facility] Comment on above: Performed By: #### 4 6477 #### LAB [address] [address] Jack Mendoza M.D. [id number] URINE AEROBIC CULTUREon 01-21 URINE AEROBIC CULTURE URINE CULTURE No Growth (<1,000 CFU/mL) Normal [facility] Comment on above: Performed By: #### 4 4053 ####[facility] [address] [place] [address] Venancio Richardson M.D. [id number] US DUPLEX VENOUS LEGS BILATE RALon 02-12-2025 US DUPLEX VENOUS LEGS BILATERAL Normal [facility] ALCOHOL, MEDICALon ALCOHOL MEDICAL < Normal <10.0 [facility] Comment on above: Result Comment: Alco hol cutoff: <10.00 mg/dL = None Detected Performed By: #### 4 5033 #### LAB [address] [address] Jack Mendoza M.D. [id number] AMMONIAon 02-11-2025 AMMONIA 39 micromol/L Normal 12- [facility] Comment on above: Performed By: #### 4 5060 #### LAB [address] [address] Jack Mendoza M.D. [id number] BLOOD CULTURE AEROBIC/ANAERO BICon 02-11-2025 BLOOD CULTURE AEROBIC/ANAEROBIC BLOOD CULTURE No Growth after 5 days Normal [facility] Comment on above: Performed By: #### 4 4014 #### LAB [address] [address] Jack Mendoza M.D. [id number] BLOOD CULTURE AEROBIC/ANAEROBIC BLOOD CULTURE STAPHYLOCOCCUS HAEMOLYTICUS Staphylococcus haemolyticus Sets Positive [1] of [2] GRAM STAIN RESULT BC Gram Positive Cocci in clusters Abnormal [facility] Comment on above: Performed By: #### 4 4014 #### LAB [address] [address] Jack Mendoza M.D. [id number] [address] [place] [address] Venancio Richardson M.D. [id number] BLOOD CULTURE ID PCRon 02-11 BLOOD CULTURE ID PCR Abnormal Not Detected [facility] Comment on above: Performed By: #### L [id number] #### LAB [address] [address] Jack Mendoza M.D. [id number] CBC WITH AUTO DIFFERENTIALon 02-11-2025 AUTO NRBC 0.0 % Normal [facility] Comment on above: Order Comment: Micro cytic, hypochromic anemia with erythrocytosis. The finding is commonly caused by thalassemia or other hemoglobinopathy with or without associated iron deficiency. Less commonly, it can be due to secondary erythrocytosis due to a chronic disease or a bone marrow disorder such as primary erythrocytosis (polycythemia vera). Performed By: #### L [id number] #### LAB [address] [address] Jack Mendoza M.D. [id number] AUTO NRBC ABS COUNT 0.00 K/mcL Normal 0.00-0.00 [facility] Comment on above: Order Comment: Micro cytic, hypochromic anemia with erythrocytosis. The finding is commonly caused by thalassemia or other hemoglobinopathy with or without associated iron deficiency. Less commonly, it can be due to secondary erythrocytosis due to a chronic disease or a bone marrow disorder such as primary erythrocytosis (polycythemia vera). Performed By: #### L [id number] #### LAB [address] [place], [place] [address] Jack Mendoza M.D. [id number] BASOPHILS ABSOLUTE COUNT 0.03 K/mcL Normal 0.00-0.30 [facility] Comment on above: Order Comment: Micro cytic, hypochromic anemia with erythrocytosis. The finding is commonly caused by thalassemia or other hemoglobinopathy with or without associated iron deficiency. Less commonly, it can be due to secondary erythrocytosis due to a chronic disease or a bone marrow disorder such as primary erythrocytosis (polycythemia vera). Performed By: #### L [id number] #### LAB [address] [place], [place] [address] Jack Mendoza M.D. [id number] Basophils/100 WBC (Bld) 0.4 % Normal [facility] Comment on above: Order Comment: Micro cytic, hypochromic anemia with erythrocytosis. The finding is commonly caused by thalassemia or other hemoglobinopathy with or without associated iron deficiency. Less commonly, it can be due to secondary erythrocytosis due to a chronic disease or a bone marrow disorder such as primary erythrocytosis (polycythemia vera). Performed By: #### L [id number] #### LAB [address] [place], [place] [address] Jack Mendoza M.D. [id number] Eosinophils (Bld) [#/Vol] 0.08 10*3/uL Normal 0.00-0.50 [facility] Comment on above: Order Comment: Micro cytic, hypochromic anemia with erythrocytosis. The finding is commonly caused by thalassemia or other hemoglobinopathy with or without associated iron deficiency. Less commonly, it can be due to secondary erythrocytosis due to a chronic disease or a bone marrow disorder such as primary erythrocytosis (polycythemia vera). Performed By: #### L [id number] ####[facility] [address] [address] Jack Mendoza M.D. [id number] Eosinophils/100 WBC (Bld) 1.1 % Normal [facility] Comment on above: Order Comment: Micro cytic, hypochromic anemia with erythrocytosis. The finding is commonly caused by thalassemia or other hemoglobinopathy with or without associated iron deficiency. Less commonly, it can be due to secondary erythrocytosis due to a chronic disease or a bone marrow disorder such as primary erythrocytosis (polycythemia vera). Performed By: #### L [id number] ####[facility] LAB [address] [place] [address] Jack Mendoza M.D. [id number] Erythrocyte distribution width (RBC) [Ratio] 20.6 % High 11.6-14.8 [facility] Comment on above: Order Comment: Micro cytic, hypochromic anemia with erythrocytosis. The finding is commonly caused by thalassemia or other hemoglobinopathy with or without associated iron deficiency. Less commonly, it can be due to secondary erythrocytosis due to a chronic disease or a bone marrow disorder such as primary erythrocytosis (polycythemia vera). Performed By: #### L [id number] #### LAB [address] [address] Jack Mendoza M.D. [id number] Hematocrit (Bld) [Volume fraction] 40.4 % Low 41.0-53.0 [facility] Comment on above: Order Comment: Micro cytic, hypochromic anemia with erythrocytosis. The finding is commonly caused by thalassemia or other hemoglobinopathy with or without associated iron deficiency. Less commonly, it can be due to secondary erythrocytosis due to a chronic disease or a bone marrow disorder such as primary erythrocytosis (polycythemia vera). Performed By: #### L [id number] #### LAB [address] [address] Jack Mendoza M.D. [id number] Hemoglobin (Bld) [Mass/Vol] 12.2 g/dL Low 13.5-17.5 [facility] Comment on above: Order Comment: Micro cytic, hypochromic anemia with erythrocytosis. The finding is commonly caused by thalassemia or other hemoglobinopathy with or without associated iron deficiency. Less commonly, it can be due to secondary erythrocytosis due to a chronic disease or a bone marrow disorder such as primary erythrocytosis (polycythemia vera). Performed By: #### L [id number] ####[facility] [address] [address] Jack Mendoza M.D. [id number] IG ABSOLUTE 0.03 K/mcL Normal 0.00-0.30 [facility] Comment on above: Order Comment: Micro cytic, hypochromic anemia with erythrocytosis. The finding is commonly caused by thalassemia or other hemoglobinopathy with or without associated iron deficiency. Less commonly, it can be due to secondary erythrocytosis due to a chronic disease or a bone marrow disorder such as primary erythrocytosis (polycythemia vera). Performed By: #### L [id number] ####[facility] [address] [address] Jack Mendoza M.D. [id number] IG PERCENT 0.40 % Normal [facility] Comment on above: Order Comment: Micro [...] to an infection. Performed By: #### L [id number] #### LAB [address] [place], [place] [address] Jack Mendoza M.D. [id number] Lymphocytes (Bld) [#/Vol] 1.28 10*3/uL Normal 0.90-4.00 [facility] Comment on above: Order Comment: Micro cytic, hypochromic anemia with erythrocytosis. The finding is commonly caused by thalassemia or other hemoglobinopathy with or without associated iron deficiency. Less commonly, it can be due to secondary erythrocytosis due to a chronic disease or a bone marrow disorder such as primary erythrocytosis (polycythemia vera). Performed By: #### L [id number] ####[facility] [address] [address] Jack Mendoza M.D. [id number] Lymphocytes/100 WBC (Bld) 17.8 % Normal [facility] Comment on above: Order Comment: Micro cytic, hypochromic anemia with erythrocytosis. The finding is commonly caused by thalassemia or other hemoglobinopathy with or without associated iron deficiency. Less commonly, it can be due to secondary erythrocytosis due to a chronic disease or a bone marrow disorder such as primary erythrocytosis (polycythemia vera). Performed By: #### L [id number] ####[facility] [address] [address] Jack Mendoza M.D. [id number] MCH (RBC) [Entitic mass] 20.3 pg Low 26.0-34.0 [facility] Comment on above: Order Comment: Micro cytic, hypochromic anemia with erythrocytosis. The finding is commonly caused by thalassemia or other hemoglobinopathy with or without associated iron deficiency. Less commonly, it can be due to secondary erythrocytosis due to a chronic disease or a bone marrow disorder such as primary erythrocytosis (polycythemia vera). Performed By: #### L [id number] ####[facility] [address] [address] Jack Mendoza M.D. [id number] MCV (RBC) [Entitic vol] 67.3 fL Low 80.0-100.0 [facility] Comment on above: Order Comment: Micro cytic, hypochromic anemia with erythrocytosis. The finding is commonly caused by thalassemia or other hemoglobinopathy with or without associated iron deficiency. Less commonly, it can be due to secondary erythrocytosis due to a chronic disease or a bone marrow disorder such as primary erythrocytosis (polycythemia vera). Performed By: #### L [id number] #### LAB [address] [place], [place] [address] Jack Mendoza M.D. [id number] MEAN CORPUSCULAR HEMOGLOBIN CONC 30.2 g/dL Low 31.0-37.0 [facility] Comment on above: Order Comment: Micro cytic, hypochromic anemia with erythrocytosis. The finding is commonly caused by thalassemia or other hemoglobinopathy with or without associated iron deficiency. Less commonly, it can be due to secondary erythrocytosis due to a chronic disease or a bone marrow disorder such as primary erythrocytosis (polycythemia vera). Performed By: #### L [id number] ####[facility] [address] [address] Jack Mendoza M.D. [id number] Monocytes (Bld) [#/Vol] 0.65 10*3/uL Normal 0.30-0.90 [facility] Comment on above: Order Comment: Micro cytic, hypochromic anemia with erythrocytosis. The finding is commonly caused by thalassemia or other hemoglobinopathy with or without associated iron deficiency. Less commonly, it can be due to secondary erythrocytosis due to a chronic disease or a bone marrow disorder such as primary erythrocytosis (polycythemia vera). Performed By: #### L [id number] #### LAB [address] [place], [place] [address] Jack Mendoza M.D. [id number] Monocytes/100 WBC (Bld) 9.0 % Normal [facility] Comment on above: Order Comment: Micro cytic, hypochromic anemia with erythrocytosis. The finding is commonly caused by thalassemia or other hemoglobinopathy with or without associated iron deficiency. Less commonly, it can be due to secondary erythrocytosis due to a chronic disease or a bone marrow disorder such as primary erythrocytosis (polycythemia vera). Performed By: #### L [id number] #### LAB [address] [place], [place] [address] Jack Mendoza M.D. [id number] NEUTROPHILS ABSOLUTE COUNT 5.13 K/mcL Normal 1.70-7.00 [facility] Comment on above: Order Comment: Micro cytic, hypochromic anemia with erythrocytosis. The finding is commonly caused by thalassemia or other hemoglobinopathy with or without associated iron deficiency. Less commonly, it can be due to secondary erythrocytosis due to a chronic disease or a bone marrow disorder such as primary erythrocytosis (polycythemia vera). Performed By: #### L [id number] #### LAB [address] [address] Jack Mendoza M.D. [id number] Neutrophils/100 WBC (Bld) 71.3 % Normal [facility] Comment on above: Order Comment: Micro [...] smear reviewed manually Performed By: #### L [id number] #### LAB [address] [address] Jack Mendoza M.D. [id number] Platelet mean volume (Bld) [Entitic vol] 9.1 fL Low 9.4-12.4 [facility] Comment on above: Order Comment: Micro cytic, hypochromic anemia with erythrocytosis. The finding is commonly caused by thalassemia or other hemoglobinopathy with or without associated iron deficiency. Less commonly, it can be due to secondary erythrocytosis due to a chronic disease or a bone marrow disorder such as primary erythrocytosis (polycythemia vera). Performed By: #### L [id number] #### LAB [address] [place] [address] Jack Mendoza M.D. [id number] Platelets (Bld) [#/Vol] 171 10*3/uL Normal 150-400 [facility] Comment on above: Order Comment: Micro cytic, hypochromic anemia with erythrocytosis. The finding is commonly caused by thalassemia or other hemoglobinopathy with or without associated iron deficiency. Less commonly, it can be due to secondary erythrocytosis due to a chronic disease or a bone marrow disorder such as primary erythrocytosis (polycythemia vera). Performed By: #### L [id number] #### LAB [address] [place] [address] Jack Mendoza M.D. [id number] RBC (Bld) [#/Vol] 6.00 10*6/uL High 4.50-5.90 [facility] Comment on above: Order Comment: Micro cytic, hypochromic anemia with erythrocytosis. The finding is commonly caused by thalassemia or other hemoglobinopathy with or without associated iron deficiency. Less commonly, it can be due to secondary erythrocytosis due to a chronic disease or a bone marrow disorder such as primary erythrocytosis (polycythemia vera). Performed By: #### L [id number] #### LAB [address] [place] [address] Jack Mendoza M.D. [id number] WBC (Bld) [#/Vol] 7.20 10*3/uL Normal 4.50-11.00 [facility] Comment on above: Order Comment: Micro cytic, hypochromic anemia with erythrocytosis. The finding is commonly caused by thalassemia or other hemoglobinopathy with or without associated iron deficiency. Less commonly, it can be due to secondary erythrocytosis due to a chronic disease or a bone marrow disorder such as primary erythrocytosis (polycythemia vera). Performed By: #### L [id number] #### LAB [address] [place], [place] [address] Jack Mendoza M.D. [id number] COMPREHENSIVE METABOLIC PANE Ras 02-11-2025 Albumin [Mass/Vol] 3.6 g/dL Normal 3.2-5.2 [facility] Comment on above: Order Comment: [facility] has implemented the eGFR calculation approach that does not have a coefficient for race that conforms to the NKF-ASN Task Force Recommendations. Performed By: #### 4 6126 ####[facility] [address] [place], [place] [address] Jack Mendoza M.D. [id number] ALP [Catalytic activity/Vol] 77 U/L Normal 40-150 [facility] Comment on above: Order Comment: [facility] has implemented the eGFR calculation approach that does not have a coefficient for race that conforms to the NKF-ASN Task Force Recommendations. Performed By: #### 4 6126 #### LAB [address] [place] [address] Jack Mendoza M.D. [id number] ALT [Catalytic activity/Vol] 9 U/L Normal 0-50 U/L [facility] Comment on above: Order Comment: [facility] has implemented the eGFR calculation approach that does not have a coefficient for race that conforms to the NKF-ASN Task Force Recommendations. Performed By: #### 4 6126 #### LAB [address] [address] Jack Mendoza M.D. [id number] Anion gap [Moles/Vol] 22 mmol/L High 10-20 [facility] Comment on above: Order Comment: [facility] has implemented the eGFR calculation approach that does not have a coefficient for race that conforms to the NKF-ASN Task Force Recommendations. Performed By: #### 4 6126 #### LAB [address] [address] Jack Mendoza M.D. [id number] AST [Catalytic activity/Vol] 24 U/L Normal 0-50 U/L [facility] Comment on above: Order Comment: [facility] has implemented the eGFR calculation approach that does not have a coefficient for race that conforms to the NKF-ASN Task Force Recommendations. Performed By: #### 4 6126 #### LAB [address] [address] Jack Mendoza M.D. [id number] Bilirubin [Mass/Vol] 0.4 mg/dL Normal 0.0-1.3 [facility] Comment on above: Order Comment: [facility] has implemented the eGFR calculation approach that does not have a coefficient for race that conforms to the NKF-ASN Task Force Recommendations. Performed By: #### 4 6126 #### LAB [address] [address] Jack Mendoza M.D. [id number] Calcium [Mass/Vol] 8.9 mg/dL Normal 8.4-10.2 [facility] Comment on above: Order Comment: [facility] has implemented the eGFR calculation approach that does not have a coefficient for race that conforms to the NKF-ASN Task Force Recommendations. Performed By: #### 4 6126 #### LAB [address] [address] Jack Mendoza M.D. [id number] Chloride [Moles/Vol] 100 mmol/L Normal 98-108 [facility] Comment on above: Order Comment: [facility] has implemented the eGFR calculation approach that does not have a coefficient for race that conforms to the NKF-ASN Task Force Recommendations. Performed By: #### 4 6126 #### LAB [address] [address] Jack Mendoza M.D. [id number] Creatinine [Mass/Vol] 5.66 mg/dL High 0.50-1.30 [facility] Comment on above: Order Comment: [facility] has implemented the eGFR calculation approach that does not have a coefficient for race that conforms to the NKF-ASN Task Force Recommendations. Performed By: #### 4 6126 #### LAB [address] [address] Jack Mendoza M.D. [id number] EGFR 11 mL/min/1.73 m2 Low >=60 [facility] Comment on above: Order Comment: [facility] has implemented the eGFR calculation approach that does not have a coefficient for race that conforms to the NKF-ASN Task Force Recommendations. Result Comment: Ashley mated GFR was calculated using the 2020 CKD-EPI creatinine equation. Performed By: #### 4 6132 #### LAB [address] [address] Jack Mendoza M.D. [id number] Glucose [Mass/Vol] 98 mg/dL Normal 65-99 [facility] Comment on above: Order Comment: [facility] has implemented the eGFR calculation approach that does not have a coefficient for race that conforms to the NKF-ASN Task Force Recommendations. Performed By: #### 4 6126 #### LAB [address] [address] Jack Mendoza M.D. [id number] HCO3 (Bld) [Moles/Vol] 20 mmol/L Low 21-32 [facility] Comment on above: Order Comment: [facility] has implemented the eGFR calculation approach that does not have a coefficient for race that conforms to the NKF-ASN Task Force Recommendations. Performed By: #### 4 6126 #### LAB [address] [address] Jack Mendoza M.D. [id number] Potassium [Moles/Vol] 7.6 mmol/L Off scale high 3.5-5.1 [facility] Comment on above: Order Comment: [facility] has implemented the eGFR calculation approach that does not have a coefficient for race that conforms to the NKF-ASN Task Force Recommendations. Performed By: #### 4 6126 #### LAB [address] [address] Jack Mendoza M.D. [id number] Protein [Mass/Vol] 8.7 g/dL High 6.0-8.0 [facility] Comment on above: Order Comment: [facility] has implemented the eGFR calculation approach that does not have a coefficient for race that conforms to the NKF-ASN Task Force Recommendations. Performed By: #### 4 6126 #### LAB [address] [address] Jack Mendoza M.D. [id number] Sodium [Moles/Vol] 134 mmol/L Low 135-145 [facility] Comment on above: Order Comment: [facility] has implemented the eGFR calculation approach that does not have a coefficient for race that conforms to the NKF-ASN Task Force Recommendations. Performed By: #### 4 6126 #### LAB [address] [address] Jack Mendoza M.D. [id number] Urea nitrogen [Mass/Vol] 98 mg/dL High 8-25 [facility] Comment on above: Order Comment: [facility] has implemented the eGFR calculation approach that does not have a coefficient for race that conforms to the NKF-ASN Task Force Recommendations. Performed By: #### 4 6126 #### LAB [address] [address] Jack Mendoza M.D. [id number] Urea nitrogen/Creatinine [Mass ratio] 17.3 mg/mg Normal 10.0-20.0 [facility] Comment on above: Order Comment: [facility] has implemented the eGFR calculation approach that does not have a coefficient for race that conforms to the NKF-ASN Task Force Recommendations. Performed By: #### 4 6126 #### LAB [address] [address] Jack Mendoza M.D. [id number] CT HEAD OR BRAIN WITHOUT CON TRASTon 02-11-2025 CT HEAD OR BRAIN WITHOUT CONTRAST Normal [facility] Comment on above: Order Comment: Injur y/Trauma or Illness?:Illness/OtherHow long have you had these symptoms (acute/chronic)?:AcuteReason for exam?:AMSType of Exam?:InitialAdditional signs and symptoms?:c/o Altered mental status. Patient was found wondering around naked DRUGS OF ABUSE SCREEN, URINE on 02-11-2025 AMPHETAMINE SCREEN, URINE Not detected Normal None Detected [facility] Comment on above: Order Comment: Scree n results should be used for treatment purposes only.Specimen will be kept for 2 weeks, if the sample is adequate. Confirmation testing can be initiated by calling the lab within 2 weeks. Result Comment: Urin e Amphetamine Cutoff: < 1000 ng/mL = None Detected Performed By: #### 4 6965 #### LAB [address] [address] Jack Mendoza M.D. [id number] BARBITURATE SCREEN URINE Not detected Normal None Detected [facility] Comment on above: Order Comment: Scree n results should be used for treatment purposes only.Specimen will be kept for 2 weeks, if the sample is adequate. Confirmation testing can be initiated by calling the lab within 2 weeks. Result Comment: Urin e Barbiturates Cutoff: < 200 ng/mL = None Detected Performed By: #### 4 6965 ####[facility] LAB [address] [address] Jack Mendoza M.D. [id number] BENZODIAZEPINE SCREEN, URINE Positive Abnormal None Detected [facility] Comment on above: Order Comment: Scree n results should be used for treatment purposes only.Specimen will be kept for 2 weeks, if the sample is adequate. Confirmation testing can be initiated by calling the lab within 2 weeks. Result Comment: Urin e Benzodiazepine Cutoff: < 200 ng/mL = None Detected Performed By: #### 4 6965 #### LAB [address] [address] Jack Mendoza M.D. [id number] BUPRENORPHINE, URINE Positive Abnormal None Detected [facility] Comment on above: Order Comment: Scree n results should be used for treatment purposes only.Specimen will be kept for 2 weeks, if the sample is adequate. Confirmation testing can be initiated by calling the lab within 2 weeks. Result Comment: Urin e Buprenorphine Cutoff: < 5 ng/mL = None Detected Performed By: #### 4 6965 #### LAB [address] [address] Jack Mendoza M.D. [id number] CANNABINOID SCREEN URINE Not detected Normal None Detected [facility] Comment on above: Order Comment: Scree n results should be used for treatment purposes only.Specimen will be kept for 2 weeks, if the sample is adequate. Confirmation testing can be initiated by calling the lab within 2 weeks. Result Comment: Urin e Cannabinoids Cutoff: < 50 ng/mL = None Detected Performed By: #### 4 6965 ####[facility] LAB [address] [address] Jack Mendoza M.D. [id number] COCAINE, SCREEN URINE Not detected Normal None Detected [facility] Comment on above: Order Comment: Scree n results should be used for treatment purposes only.Specimen will be kept for 2 weeks, if the sample is adequate. Confirmation testing can be initiated by calling the lab within 2 weeks. Result Comment: Urin e Cocaine Cutoff: < 300 ng/mL = None Detected Performed By: #### 4 6965 #### LAB [address] [address] Jack Mendoza M.D. [id number] FENTANYL, URINE Not detected Normal None Detected [facility] Comment on above: Order Comment: Scree n results should be used for treatment purposes only.Specimen will be kept for 2 weeks, if the sample is adequate. Confirmation testing can be initiated by calling the lab within 2 weeks. Result Comment: Urin e Fentanyl Cutoff: < 1 ng/mL = None Detected Performed By: #### 4 6965 #### LAB [address] [address] Jack Mendoza M.D. [id number] METHADONE SCREEN, URINE Not detected Normal None Detected [facility] Comment on above: Order Comment: Scree n results should be used for treatment purposes only.Specimen will be kept for 2 weeks, if the sample is adequate. Confirmation testing can be initiated by calling the lab within 2 weeks. Result Comment: Urin e Methadone Cutoff: < 300 ng/mL = None Detected Performed By: #### 4 6965 #### LAB [address] [place] [address] Jack Mendoza M.D. [id number] OPIATE SCREEN URINE Not detected Normal None Detected [facility] Comment on above: Order Comment: Scree n results should be used for treatment purposes only.Specimen will be kept for 2 weeks, if the sample is adequate. Confirmation testing can be initiated by calling the lab within 2 weeks. Result Comment: Urin e Opiates Cutoff: < 300 ng/mL = None Detected Performed By: #### 4 6965 #### LAB [address] [address] Jack Mendoza M.D. [id number] OXYCODONE SCREEN, URINE Not detected Normal None Detected [facility] Comment on above: Order Comment: Scree n results should be used for treatment purposes only.Specimen will be kept for 2 weeks, if the sample is adequate. Confirmation testing can be initiated by calling the lab within 2 weeks. Result Comment: Urin e Oxycodone Cutoff: < 100 ng/mL = None Detected Performed By: #### 4 6965 #### LAB [address] [address] Jack Mendoza M.D. [id number] H AND Mike 02-11-2025 H AND P Normal [facility] HEMOGLOBIN A1Con 02-11-2025 Glucose [Mass/Vol] 131 mg/dL High 74-114 [facility] Comment on above: Performed By: #### 4 8202 ####[facility] LAB [address] [address] Jack Mendoza M.D. [id number] HbA1c (Bld) [Mass fraction] 6.2 % High 4.2-5.6 [facility] Comment on above: Performed By: #### 4 8202 ####[facility] LAB [address] [address] Jack Mendoza M.D. [id number] LACTIC ACID, PLASMAon 2024 LACTIC ACID, PLASMA 1.1 mmol/L Normal 0.6-2.0 [facility] Comment on above: Performed By: #### 4 6053 ####[facility] LAB [address] [address] Jack Mendoza M.D. [id number] MORPHOLOGYon 02-11-2025 OVAL SCAN Moderate Normal [facility] Comment on above: Performed By: #### L AB295 ####[facility] LAB [address] [address] Jack Mendoza M.D. [id number] PLATELET ESTIMATE Normal Normal [facility] Comment on above: Performed By: #### L AB295 ####[facility] LAB [address] [address] Jack Mendoza M.D. [id number] POLY SCAN Few Normal [facility] Comment on above: Performed By: #### L AB295 ####[facility] LAB [address] [address] Jack Mendoza M.D. [id number] RBC MORPH SCAN See Comment [facility] Comment on above: Result Comment: RBC Indices confirmed with manual peripheral smear review. Performed By: #### L AB295 ####[facility] LAB [address] [address] Jack Mendoza M.D. [id number] TARGET CELL SCAN Few Normal [facility] Comment on above: Performed By: #### L AB295 ####[facility] LAB [address] [address] Jack Mendoza M.D. [id number] POC ARTERIAL BLOOD GAS PANEL -[facility] 02-11-2025 [id number] 43.1 mm Hg Normal [facility] Comment on above: Performed By: #### 4 8716 ####[facility] LAB [address] [address] Jack Mendoza M.D. [id number] BASE EXCESS, ARTERIAL -6.5 Low -2.0-2.0 [facility] Comment on above: Performed By: #### 4 8716 ####[facility] LAB [address] [address] Jack Mendoza M.D. [id number] FIO2 32 Normal [facility] Comment on above: Performed By: #### 4 8716 ####[facility] LAB [address] [address] Jack Mendoza M.D. [id number] HCO3 (Bld) [Moles/Vol] 21.5 mmol/L Low 22.0-26.0 [facility] Comment on above: Performed By: #### 4 8716 ####[facility] LAB [address] [address] Jack Mendoza M.D. [id number] Hematocrit (Bld) [Volume fraction] 37.6 % Low 41.0-53.0 [facility] Comment on above: Performed By: #### 4 8716 ####[facility] LAB [address] [address] Jack Mendoza M.D. [id number] Hemoglobin (Bld) [Mass/Vol] 12.3 g/dL Low 13.5-17.5 [facility] Comment on above: Performed By: #### 4 8716 ####[facility] LAB [address] [address] Jack Mendoza M.D. [id number] LITER FLOW 3 Normal [facility] Comment on above: Performed By: #### 4 8716 #### LAB [address] [address] Jack Mendoza M.D. [id number] Oxygen saturation in Blood 98.2 % Normal 92.0-99.0 [facility] Comment on above: Performed By: #### 4 8716 #### LAB [address] [address] Jack Mendoza M.D. [id number] PCO2 ARTERIAL 52.5 mm Hg High 35.0-45.0 [facility] Comment on above: Performed By: #### 4 8716 #### LAB [address] [address] Jack Mendoza M.D. [id number] PH ARTERIAL 7.22 Low 7.35-7.45 [facility] Comment on above: Performed By: #### 4 8716 #### LAB [address] [address] Jack Mendoza M.D. [id number] PO2 ARTERIAL 116 mm Hg High 80-100 [facility] Comment on above: Performed By: #### 4 8716 #### LAB [address] [address] Jack Mendoza M.D. [id number] SPECIMEN SOURCE RADIANCE Brachial, right [facility] Comment on above: Performed By: #### 4 8716 #### LAB [address] [address] Jack Mendoza M.D. [id number] POC GLUCOSE - [facility] 025 Glucose [Mass/Vol] 110 mg/dL High [address] [place] [address] Comment on above: Performed By: #### 4 6932 #### LAB [address] [address] Jack Mendoza M.D. [id number] Glucose [Mass/Vol] 114 mg/dL [address] Comment on above: Performed By: #### 4 6932 ####[facility] LAB [address] [address] Jack Mendoza M.D. [id number] Glucose [Mass/Vol] 100 mg/dL High 65-99 [facility] Comment on above: Performed By: #### 4 6932 #### LAB [address] [address] Jack Mendoza M.D. [id number] POTASSIUM LEVELon 02-11-2025 Potassium [Moles/Vol] 5.9 mmol/L High 3.5-5.1 [facility] Comment on above: Performed By: #### 4 6351 #### LAB [address] [address] Jack Mendoza M.D. [id number] TRIGLYCERIDESon 02-11-2025 Triglyceride [Mass/Vol] 74 mg/dL Normal 30-150 [facility] Comment on above: Result Comment: [place] [employer]olesterol [employer] Guidelines: TriglycerideNormal: <150 mg/dLBorderline High: 150-199 mg/dLHigh: 200-499 mg/dLVery High: greater than or equal to 500 mg/dL Performed By: #### 4 6606 #### LAB [address] [address] Jack Mendoza M.D. [id number] TROPONIN X 2 (NOW AND REPEAT IN 2 HOURS)on 02-11-2025 TROPONIN T DELTA CHANGE INTERPRETATION Delta troponin requires at least 2 hours between collections. Normal [facility] Comment on above: Performed By: #### 4 6608 #### LAB [address] [address] Jack Mendoza M.D. [id number] TROPONIN T NG/L 22 ng/L Normal <=22 [facility] Comment on above: Performed By: #### 4 6608 #### LAB [address] [address] Jack Mendoza M.D. [id number] BASELINE TROPONIN T NG/L 16 ng/L Normal <=22 [facility] Comment on above: Performed By: #### 4 6608 ####[facility] LAB [address] [id number] Jack Mendoza M.D. [id number] TROPONIN T INTERPRETATION Normal Normal [facility] Comment on above: Performed By: #### 4 6608 #### LAB [address] [id number] Jack Mendoza M.D. [id number] TSH WITH REFLEX FREE T4on TSH Qn 1.42 m[IU]/L Normal 0.27-4.20 [facility] Comment on above: Performed By: #### 4 6612 #### LAB [address] [address] Jack Mendoza M.D. [id number] URINALYSISon 02-11-2025 AMORPHOUS CRYSTALS Few Abnormal None Seen , Rare [facility] Comment on above: Order Comment: Micro scopic examination is performed on all urinalysis samples and only positive findings are reported. The test for blood on the chemical analytic portion of urinalysis may also be positive due to hemoglobinuria and myoglobinuria and if red blood cells are present they are quantified by microscopic examination. Performed By: #### 4 6625 #### LAB [address] [address] Jack Mendoza M.D. [id number] BACTERIA, URINE None Seen Normal None Seen [facility] Comment on above: Order Comment: Micro scopic examination is performed on all urinalysis samples and only positive findings are reported. The test for blood on the chemical analytic portion of urinalysis may also be positive due to hemoglobinuria and myoglobinuria and if red blood cells are present they are quantified by microscopic examination. Performed By: #### 4 6625 #### LAB [address] [address] Jack Mendoza M.D. [id number] BILIRUBIN, URINE Negative Normal Negative [facility] Comment on above: Order Comment: Micro scopic examination is performed on all urinalysis samples and only positive findings are reported. The test for blood on the chemical analytic portion of urinalysis may also be positive due to hemoglobinuria and myoglobinuria and if red blood cells are present they are quantified by microscopic examination. Performed By: #### 4 6625 #### LAB [address] [address] Jack Mendoza M.D. [id number] BLOOD, URINE Negative Normal Negative [facility] Comment on above: Order Comment: Micro scopic examination is performed on all urinalysis samples and only positive findings are reported. The test for blood on the chemical analytic portion of urinalysis may also be positive due to hemoglobinuria and myoglobinuria and if red blood cells are present they are quantified by microscopic examination. Performed By: #### 4 6625 #### LAB [address] [address] Jack Mendoza M.D. [id number] Clarity (U) Clear Normal Clear [facility] Comment on above: Order Comment: Micro scopic examination is performed on all urinalysis samples and only positive findings are reported. The test for blood on the chemical analytic portion of urinalysis may also be positive due to hemoglobinuria and myoglobinuria and if red blood cells are present they are quantified by microscopic examination. Performed By: #### 4 6625 #### LAB [address] [address] Jack Mendoza M.D. [id number] Color (U) Yellow Normal Colorless, Yellow [facility] Comment on above: Order Comment: Micro scopic examination is performed on all urinalysis samples and only positive findings are reported. The test for blood on the chemical analytic portion of urinalysis may also be positive due to hemoglobinuria and myoglobinuria and if red blood cells are present they are quantified by microscopic examination. Performed By: #### 4 6625 #### LAB [address] [address] Jack Mendoza M.D. [id number] Glucose Ql (U) Negative Normal Negative [facility] Comment on above: Order Comment: Micro scopic examination is performed on all urinalysis samples and only positive findings are reported. The test for blood on the chemical analytic portion of urinalysis may also be positive due to hemoglobinuria and myoglobinuria and if red blood cells are present they are quantified by microscopic examination. Performed By: #### 4 6625 #### LAB [address] [id number] Jack Mendoza M.D. [id number] Hyaline casts LM Ql (Urine sed) 11-20 Abnormal 0-2 [facility] Comment on above: Order Comment: Micro scopic examination is performed on all urinalysis samples and only positive findings are reported. The test for blood on the chemical analytic portion of urinalysis may also be positive due to hemoglobinuria and myoglobinuria and if red blood cells are present they are quantified by microscopic examination. Performed By: #### 4 6625 #### LAB [address] [address] Jack Mendoza M.D. [id number] Ketones Ql (U) Negative Normal Negative [facility] Comment on above: Order Comment: Micro scopic examination is performed on all urinalysis samples and only positive findings are reported. The test for blood on the chemical analytic portion of urinalysis may also be positive due to hemoglobinuria and myoglobinuria and if red blood cells are present they are quantified by microscopic examination. Performed By: #### 4 6625 #### LAB [address] [address] Jack Mendoza M.D. [id number] Leukocyte esterase Test strip Ql (U) Negative Normal Negative [facility] Comment on above: Order Comment: Micro scopic examination is performed on all urinalysis samples and only positive findings are reported. The test for blood on the chemical analytic portion of urinalysis may also be positive due to hemoglobinuria and myoglobinuria and if red blood cells are present they are quantified by microscopic examination. Performed By: #### 4 6625 #### LAB [address] [address] Jack Mendoza M.D. [id number] NITRITE, URINE Negative Normal Negative [facility] Comment on above: Order Comment: Micro scopic examination is performed on all urinalysis samples and only positive findings are reported. The test for blood on the chemical analytic portion of urinalysis may also be positive due to hemoglobinuria and myoglobinuria and if red blood cells are present they are quantified by microscopic examination. Performed By: #### 4 6625 #### LAB [address] [place], [place] [address] Jack Mendoza M.D. [id number] pH (U) 5.5 [pH] Normal 5.0-7.0 [facility] Comment on above: Order Comment: Micro scopic examination is performed on all urinalysis samples and only positive findings are reported. The test for blood on the chemical analytic portion of urinalysis may also be positive due to hemoglobinuria and myoglobinuria and if red blood cells are present they are quantified by microscopic examination. Performed By: #### 4 6625 #### LAB [address] [place], [place] [address] Jack Mendoza M.D. [id number] PROTEIN, URINE Negative Normal Negative [facility] Comment on above: Order Comment: Micro scopic examination is performed on all urinalysis samples and only positive findings are reported. The test for blood on the chemical analytic portion of urinalysis may also be positive due to hemoglobinuria and myoglobinuria and if red blood cells are present they are quantified by microscopic examination. Performed By: #### 4 6625 #### LAB [address] [address] Jack Mendoza M.D. [id number] RBC LM.HPF (Urine sed) [#/Area] 1 /[HPF] Normal 0-3 [facility] Comment on above: Order Comment: Micro scopic examination is performed on all urinalysis samples and only positive findings are reported. The test for blood on the chemical analytic portion of urinalysis may also be positive due to hemoglobinuria and myoglobinuria and if red blood cells are present they are quantified by microscopic examination. Performed By: #### 4 6625 #### LAB [address] [id number] Jack Mendoza M.D. [id number] Specific gravity (U) [Rel density] 1.014 Normal 1.005-1.025 [facility] Comment on above: Order Comment: Micro scopic examination is performed on all urinalysis samples and only positive findings are reported. The test for blood on the chemical analytic portion of urinalysis may also be positive due to hemoglobinuria and myoglobinuria and if red blood cells are present they are quantified by microscopic examination. Performed By: #### 4 6625 #### LAB [address] [id number] Jack Mendoza M.D. [id number] TRANSITIONAL EPITHELIAL < Normal 0-1 [facility] Comment on above: Order Comment: Micro scopic examination is performed on all urinalysis samples and only positive findings are reported. The test for blood on the chemical analytic portion of urinalysis may also be positive due to hemoglobinuria and myoglobinuria and if red blood cells are present they are quantified by microscopic examination. Performed By: #### 4 6625 #### LAB [address] [id number] Jack Mendoza M.D. [id number] UROBILINOGEN, URINE <2.0 Normal <2.0 [facility] Comment on above: Order Comment: Micro scopic examination is performed on all urinalysis samples and only positive findings are reported. The test for blood on the chemical analytic portion of urinalysis may also be positive due to hemoglobinuria and myoglobinuria and if red blood cells are present they are quantified by microscopic examination. Performed By: #### 4 6625 #### LAB [address] [place], [place] [address] Jack Mendoza M.D. [id number] WBC, URINE < Normal 0-5 [facility] Comment on above: Order Comment: Micro scopic examination is performed on all urinalysis samples and only positive findings are reported. The test for blood on the chemical analytic portion of urinalysis may also be positive due to hemoglobinuria and myoglobinuria and if red blood cells are present they are quantified by microscopic examination. Performed By: #### 4 6625 #### LAB [address] [id number] Jack Mendoza M.D. [id number] US RENAL AND BLADDERon 02-11 US RENAL AND BLADDER Normal [facility] Comment on above: Order Comment: Injur y/Trauma or Illness?:Illness/OtherHow long have you had these symptoms (acute/chronic)?:AcuteReason for exam?:akiHistory of cancer?:uSurgeries, chemotherapy, or radiation?:uType of Exam?:InitialAdditional signs and symptoms?:none VOLATILE PANELon 02-11-2025 ACETONE QUANT, BLOOD <10 Normal [facility] Comment on above: Order Comment: This Gas Chromatography test was developed and its performance characteristics determined by [facility]. It has not been cleared or approved by the FDA. The laboratory is regulated under CLIA as qualified to perform high-complexity testing. This test is used for clinical purposes. It should not be regarded as investigational or for research.Test performed by:[facility] Reference [id number] [place] [address] Performed By: #### 4 [id number] ####[facility] LAB [address] [address] Jack Mendoza M.D. [id number] ACETONE, BLOOD Not detected Normal Not Detected [facility] Comment on above: Order Comment: This Gas Chromatography test was developed and its performance characteristics determined by [facility]. It has not been cleared or approved by the FDA. The laboratory is regulated under CLIA as qualified to perform high-complexity testing. This test is used for clinical purposes. It should not be regarded as investigational or for research.Test performed by:[facility] Reference [address] [place] [address] Performed By: #### 4 6683 ####[facility] LAB [address] [address] Jack Mendoza M.D. [id number] Ethanol [Mass/Vol] Not detected Normal Not Detected [facility] Comment on above: Order Comment: This Gas Chromatography test was developed and its performance characteristics determined by [facility]. It has not been cleared or approved by the FDA. The laboratory is regulated under CLIA as qualified to perform high-complexity testing. This test is used for clinical purposes. It should not be regarded as investigational or for research.Test performed by:[facility] Reference [address] [place] [address] Performed By: #### 4 6683 ####[facility] LAB [address] [address] Jack Mendoza M.D. [id number] ETHANOL QUANT, BLOOD <10 Normal [facility] Comment on above: Order Comment: This Gas Chromatography test was developed and its performance characteristics determined by [facility]. It has not been cleared or approved by the FDA. The laboratory is regulated under CLIA as qualified to perform high-complexity testing. This test is used for clinical purposes. It should not be regarded as investigational or for research.Test performed by:[facility] Reference [address] [place] [address] Performed By: #### 4 6683 ####[facility] LAB [address] [place] [address] Jack Mendoza M.D. [id number] ISOPROPANOL QUANT, BLOOD <10 [facility] Comment on above: Order Comment: This Gas Chromatography test was developed and its performance characteristics determined by [facility]. It has not been cleared or approved by the FDA. The laboratory is regulated under CLIA as qualified to perform high-complexity testing. This test is used for clinical purposes. It should not be regarded as investigational or for research.Test performed by:[facility] Reference [id number] [place] [address] Performed By: #### 4 6683 ####[facility] LAB [address] [place] [address] Jack Mendoza M.D. [id number] ISOPROPANOL, BLOOD Not detected Normal Not Detected [facility] Comment on above: Order Comment: This Gas Chromatography test was developed and its performance characteristics determined by [facility]. It has not been cleared or approved by the FDA. The laboratory is regulated under CLIA as qualified to perform high-complexity testing. This test is used for clinical purposes. It should not be regarded as investigational or for research.Test performed by:[facility] Reference [address] [place] [address] Performed By: #### 4 6683 ####[facility] LAB [address] [place] [address] Jack Mendoza M.D. [id number] METHANOL QUANT, BLOOD <10 Normal [facility] Comment on above: Order Comment: This Gas Chromatography test was developed and its performance characteristics determined by [facility]. It has not been cleared or approved by the FDA. The laboratory is regulated under CLIA as qualified to perform high-complexity testing. This test is used for clinical purposes. It should not be regarded as investigational or for research.Test performed by:[facility] Reference [address] [place] [address] Performed By: #### 4 6683 #### LAB [address] [address] Jack Mendoza M.D. [id number] METHANOL, BLOOD Not detected Normal Not Detected [facility] Comment on above: Order Comment: This Gas Chromatography test was developed and its performance characteristics determined by [facility]. It has not been cleared or approved by the FDA. The laboratory is regulated under CLIA as qualified to perform high-complexity testing. This test is used for clinical purposes. It should not be regarded as investigational or for research.Test performed by:[facility] Reference [address] [place] [address] Performed By: #### 4 6683 #### LAB [address] [address] Jack Mendoza M.D. [id number] XR ABDOMEN /KUB/FLAT PLATE/1 VIEWon 02-11-2025 XR ABDOMEN /KUB/FLAT PLATE/1 VIEW [facility] Comment on above: Order Comment: Injur y/Trauma or Illness?:Illness/OtherHow long have you had these symptoms (acute/chronic)?:AcuteReason for exam?:OG PLACEMENTHistory of cancer?:uSurgeries, chemotherapy, or radiation?:uType of Exam?:InitialAdditional signs and symptoms?:. XR CHEST PA/APon 02-11-2025 XR CHEST PA/AP [facility] Comment on above: Order Comment: Injur y/Trauma or Illness?:Illness/OtherHow long have you had these symptoms (acute/chronic)?:AcuteReason for exam?:ETT PLACEMENTHistory of cancer?:uSurgeries, chemotherapy, or radiation?:uType of Exam?:InitialAdditional signs and symptoms?:. Order Comment: Injur y/Trauma or Illness?:Illness/OtherHow long have you had these symptoms (acute/chronic)?:AcuteReason for exam?:amsHistory of cancer?:uSurgeries, chemotherapy, or radiation?:uType of Exam?:InitialAdditional signs and symptoms?:. No Panel Informationon 12-21 [facility] Cecilia Gonzales DPM 12/23/2024 8:04 PM [...] Response to treatment: procedure was tolerated well [facility] Wound Debridementon 12-22-19 Cecilia Gonzales DPM [...] Response to treatment: procedure was tolerated well [facility] WOUND AEROBIC CULTUREon 10-21 WOUND AEROBIC CULTURE AEROBIC CULTURE Light Growth Normal Skin Sobeida GRAM STAIN RESULT Many WBC Rare Gram Positive Cocci Normal [facility] Comment on above: Order Comment: Origi jesu ordered as [facility] Test specimen; reordered as [facility] specimen to be ran at [facility] Microbiology. Performed By: #### 4 [id number] ####[facility] [address] [place] [address] Venancio Richardson M.D. [id number] XR FOOT RIGHT 3+ VIEWS (JEREMIAS DARD)on 11-09-2024 XR FOOT RIGHT 3+ VIEWS (STANDARD) Normal [facility] Comment on above: Order Comment: Injur y/Trauma or Illness?:Illness/OtherHow long have you had these symptoms (acute/chronic)?:ChronicReason for exam?:plantar medial ulcer probes down to boneHistory of cancer?:uSurgeries, chemotherapy, or radiation?:uType of Exam?:OngoingAdditional signs and symptoms?:u CBC Auto Differentialon Erythrocyte distribution width (RBC) [Entitic vol] 16.4 % High 11.6 - 14.8 % [facility] Hematocrit (Bld) [Volume fraction] 34.3 % Low 41.0 - 53.0 % [facility] Hemoglobin (Bld) [Mass/Vol] 10 g/dL Low 13.5 - 17.5 g/dL [facility] MCH (RBC) [Entitic mass] 20.1 pg Low 26.0 - 34.0 pg [facility] MCHC (RBC) [Mass/Vol] 29.2 g/dL Low 31.0 - 37.0 g/dL [facility] MCV (RBC) [Entitic vol] 68.9 fL Low 80.0 - 100.0 fL [facility] Nucleated RBC (Bld) [#/Vol] 0 10*3/uL [facility] Nucleated RBC/100 WBC (Bld) [Ratio] 0 % [facility] Platelets (Bld) [#/Vol] 107 10*3/uL Low [facility] RBC (Bld) [#/Vol] 4.98 10*6/uL [facility] WBC (Bld) [#/Vol] 4.11 10*3/uL Low [facility] CBC WITH AUTO DIFFERENTIALon 10-24-2024 AUTO NRBC 0.0 % Normal [facility] Comment on above: Performed By: #### L [id number] #### LAB [address] [address] Jack Mendoza M.D. [id number] AUTO NRBC ABS COUNT 0.00 K/mcL Normal 0.00-0.00 [facility] Comment on above: Performed By: #### L [id number] ####[facility] LAB [address] [address] Jack Mendoza M.D. [id number] Erythrocyte distribution width (RBC) [Ratio] 16.4 % High 11.6-14.8 [facility] Comment on above: Performed By: #### L [id number] #### LAB [address] [address] Jack Mendoza M.D. [id number] Hematocrit (Bld) [Volume fraction] 34.3 % Low 41.0-53.0 [facility] Comment on above: Performed By: #### L [id number] #### LAB [address] [address] Jack Mendoza M.D. [id number] Hemoglobin (Bld) [Mass/Vol] 10.0 g/dL Low 13.5-17.5 [facility] Comment on above: Performed By: #### L [id number] #### LAB [address] [address] Jack Mendoza M.D. [id number] MCH (RBC) [Entitic mass] 20.1 pg Low 26.0-34.0 [facility] Comment on above: Performed By: #### L [id number] #### LAB [address] [address] Jack Mendoza M.D. [id number] MCV (RBC) [Entitic vol] 68.9 fL Low 80.0-100.0 [facility] Comment on above: Performed By: #### L [id number] #### LAB [address] [address] Jack Mendoza M.D. [id number] MEAN CORPUSCULAR HEMOGLOBIN CONC 29.2 g/dL Low 31.0-37.0 [facility] Comment on above: Performed By: #### L [id number] #### LAB [address] [address] Jack Mendoza M.D. [id number] Platelets (Bld) [#/Vol] 107 10*3/uL Low 150-400 [facility] Comment on above: Performed By: #### L [id number] #### LAB [address] [address] Jack Mendoza M.D. [id number] RBC (Bld) [#/Vol] 4.98 10*6/uL Normal 4.50-5.90 [facility] Comment on above: Performed By: #### L [id number] #### LAB [address] [address] Jack Mendoza M.D. [id number] WBC (Bld) [#/Vol] 4.11 10*3/uL Low 4.50-11.00 [facility] Comment on above: Performed By: #### L [id number] #### LAB [address] [place] [address] Jack Mendoza M.D. [id number] CBC and Diff Morphologyon Ovalocytes LM Ql (Bld) Many [facility] Platelets LM Ql (Bld) Decreased Abnormal Normal [facility] RBC morphology finding Nom (Bld) See Comment [facility] Comment on above: RBC Indices confirme d with manual peripheral smear review. Schistocytes Auto Ql (Bld) Few Abnormal See Comment [facility] Stomatocytes LM Ql (Bld) Few [facility] Target cells LM Ql (Bld) Moderate [facility] Disch Summon 10-24-2024 Disch Summ Normal [facility] MANUAL DIFFERENTIALon 2024 BASOPHILS - ABS (DIFF) 0.04 K/mcL Normal 0.00-0.30 [facility] Comment on above: Performed By: #### 4 [id number] #### LAB [address] [address] Jack Mendoza M.D. [id number] BASOPHILS - REL (DIFF) 0.9 % [facility] Comment on above: Performed By: #### 4 5456 #### LAB [address] [address] Jack Mendoza M.D. [id number] EOSINOPHILS - ABS (DIFF) 0.21 K/mcL Normal 0.00-0.50 [facility] Comment on above: Performed By: #### 4 5456 #### LAB [address] [address] Jack Mendoza M.D. [id number] EOSINOPHILS - REL (DIFF) 5.1 % [facility] Comment on above: Performed By: #### 4 5456 #### LAB [address] [address] Jack Mendoza M.D. [id number] LYMPHOCYTE ATYPICAL - REL (DIFF) 2.5 % [facility] Comment on above: Performed By: #### 4 5456 #### LAB [address] [address] Jack Mendoza M.D. [id number] LYMPHOCYTES - ABS (DIFF) 0.97 K/mcL Normal 0.90-4.00 [facility] Comment on above: Performed By: #### 4 5456 #### LAB [address] [address] Jack Mendoza M.D. [id number] LYMPHOCYTES - REL (DIFF) 21.2 % [facility] Comment on above: Performed By: #### 4 5404 #### LAB [address] [address] Jack Mendoza M.D. [id number] METAMYELOCYTES-REL (DIFF) 0.8 % [facility] Comment on above: Performed By: #### 4 5499 #### LAB [address] [address] Jack Mendoza M.D. [id number] MONOCYTES - ABS (DIFF) 0.24 K/mcL Low 0.30-0.90 [facility] Comment on above: Performed By: #### 4 5456 #### LAB [address] [address] Jack Mendoza M.D. [id number] MONOCYTES - REL (DIFF) 5.9 % Normal [facility] Comment on above: Performed By: #### 4 5456 #### LAB [address] [address] Jack Mendoza M.D. [id number] NEUTROPHILS - ABS (DIFF) 2.65 K/mcL Normal 1.70-7.00 [facility] Comment on above: Performed By: #### 4 5456 ####[facility] LAB [address] [address] Jack Mendoza M.D. [id number] NEUTROPHILS - REL (DIFF) 63.6 % Normal [facility] Comment on above: Performed By: #### 4 5456 #### LAB [address] [address] Jack Mendoza M.D. [id number] MORPHOLOGYon 10-24-2024 OVAL SCAN Many Normal [facility] Comment on above: Performed By: #### L [id number] ####[facility] LAB [address] [address] Jack Mendoza M.D. [id number] PLATELET ESTIMATE Decreased Abnormal Normal [facility] Comment on above: Performed By: #### L [id number] ####[facility] LAB [address] [address] Jack Mendoza M.D. [id number] RBC MORPH SCAN See Comment Normal [facility] Comment on above: Result Comment: RBC Indices confirmed with manual peripheral smear review. Performed By: #### L [id number] ####[facility] LAB [address] [address] Jack Mendoza M.D. [id number] SCHISTO SCAN Few Abnormal See Comment [facility] Comment on above: Performed By: #### L [id number] ####[facility] LAB [address] [place], [place] [address] Jack Mendoza M.D. [id number] STOMATOCYTES Few Normal [facility] Comment on above: Performed By: #### L [id number] ####[facility] LAB [address] [place], [place] [address] Jack Mendoza M.D. [id number] TARGET CELL SCAN Moderate Normal [facility] Comment on above: Performed By: #### L [id number] ####[facility] LAB [address] [place], [place] [address] Jack Mendoza M.D. [id number] Manual Differential panel (B ld)on 10-24-2024 Basophils (Bld) [#/Vol] 0.04 10*3/uL [facility] Basophils/100 WBC (Bld) 0.9 % [facility] Eosinophils (Bld) [#/Vol] 0.21 10*3/uL [facility] Eosinophils/100 WBC (Bld) 5.1 % [facility] Lymphocytes (Bld) [#/Vol] 0.97 10*3/uL [facility] Lymphocytes/100 WBC (Bld) 21.2 % [facility] Metamyelocytes/100 WBC (Bld) 0.8 % [facility] Monocytes (Bld) [#/Vol] 0.24 10*3/uL Low [facility] Monocytes/100 WBC (Bld) 5.9 % [facility] Neutrophils (Bld) [#/Vol] 2.65 10*3/uL [facility] Neutrophils/100 WBC (Bld) 63.6 % [facility] Variant lymphocytes/100 WBC (Bld) 2.5 % [facility] No Panel Informationon 10-24 Interpretation and review of laboratory results Abnormal [facility] CBC Auto Differentialon Erythrocyte distribution width (RBC) [Entitic vol] 17.3 % High 11.6 - 14.8 % [facility] Hematocrit (Bld) [Volume fraction] 38 % Low 41.0 - 53.0 % [facility] Hemoglobin (Bld) [Mass/Vol] 11.4 g/dL Low 13.5 - 17.5 g/dL [facility] MCH (RBC) [Entitic mass] 20.7 pg Low 26.0 - 34.0 pg [facility] MCHC (RBC) [Mass/Vol] 30 g/dL Low 31.0 - 37.0 g/dL [facility] MCV (RBC) [Entitic vol] 68.8 fL Low 80.0 - 100.0 fL [facility] Nucleated RBC (Bld) [#/Vol] 0 10*3/uL [facility] Nucleated RBC/100 WBC (Bld) [Ratio] 0 % [facility] Platelet mean volume (Bld) [Entitic vol] 9.3 fL Low 9.4 - 12.4 fL [facility] Platelets (Bld) [#/Vol] 118 10*3/uL Low [facility] RBC (Bld) [#/Vol] 5.52 10*6/uL [facility] WBC (Bld) [#/Vol] 5.5 10*3/uL [facility] CBC WITH AUTO DIFFERENTIALon 10-23-2024 AUTO NRBC 0.0 % Normal [facility] Comment on above: Performed By: #### L [id number] #### LAB [address] [address] Jack Mendoza M.D. [id number] AUTO NRBC ABS COUNT 0.00 K/mcL Normal 0.00-0.00 [facility] Comment on above: Performed By: #### L [id number] #### LAB [address] [address] Jack Mendoza M.D. [id number] Erythrocyte distribution width (RBC) [Ratio] 17.3 % High 11.6-14.8 [facility] Comment on above: Performed By: #### L [id number] #### LAB [address] [address] Jack Mendoza M.D. [id number] Hematocrit (Bld) [Volume fraction] 38.0 % Low 41.0-53.0 [facility] Comment on above: Performed By: #### L [id number] #### LAB [address] [place] [address] Jack Mendoza M.D. [id number] Hemoglobin (Bld) [Mass/Vol] 11.4 g/dL Low 13.5-17.5 [facility] Comment on above: Performed By: #### L [id number] #### LAB [address] [address] Jack Mendoza M.D. [id number] MCH (RBC) [Entitic mass] 20.7 pg Low 26.0-34.0 [facility] Comment on above: Performed By: #### L [id number] #### LAB [address] [address] Jack Mendoza M.D. [id number] MCV (RBC) [Entitic vol] 68.8 fL Low 80.0-100.0 [facility] Comment on above: Performed By: #### L [id number] #### LAB [address] [address] Jack Mendoza M.D. [id number] MEAN CORPUSCULAR HEMOGLOBIN CONC 30.0 g/dL Low 31.0-37.0 [facility] Comment on above: Performed By: #### L [id number] #### LAB [address] [address] Jack Mendoza M.D. [id number] Platelet mean volume (Bld) [Entitic vol] 9.3 fL Low 9.4-12.4 [facility] Comment on above: Performed By: #### L [id number] #### LAB [address] [place] [address] Jack Mendoza M.D. [id number] Platelets (Bld) [#/Vol] 118 10*3/uL Low 150-400 [facility] Comment on above: Performed By: #### L [id number] #### LAB [address] [address] Jack Mendoza M.D. [id number] RBC (Bld) [#/Vol] 5.52 10*6/uL Normal 4.50-5.90 [facility] Comment on above: Performed By: #### L [id number] #### LAB [address] [place] [address] Jack Mendoza M.D. [id number] WBC (Bld) [#/Vol] 5.50 10*3/uL Normal 4.50-11.00 [facility] Comment on above: Performed By: #### L [id number] #### LAB [address] [address] Jack Mendoza M.D. [id number] CBC and Diff Morphologyon Neutrophils.vacuolat ed LM Ql (Bld) Present [facility] Ovalocytes LM Ql (Bld) Many [facility] Platelets Large Auto Ql (Bld) Few [facility] Platelets LM Ql (Bld) Decreased Abnormal Normal [facility] Polychromasia LM Ql (Bld) Few [facility] RBC morphology finding Nom (Bld) See Comment [facility] Comment on above: RBC Indices confirme d with manual peripheral smear review. Schistocytes Auto Ql (Bld) Few Abnormal See Comment [facility] Target cells LM Ql (Bld) Many [facility] MANUAL DIFFERENTIALon 2024 BASOPHILS - ABS (DIFF) 0.00 K/mcL Normal 0.00-0.30 [facility] Comment on above: Performed By: #### 4 [id number] #### LAB [address] [address] Jack Mendoza M.D. [id number] BASOPHILS - REL (DIFF) 0.0 % Normal [facility] Comment on above: Performed By: #### 4 5456 #### LAB [address] [address] Jack Mendoza M.D. [id number] EOSINOPHILS - ABS (DIFF) 0.29 K/mcL Normal 0.00-0.50 [facility] Comment on above: Performed By: #### 4 5456 #### LAB [address] [address] Jack Mendoza M.D. [id number] EOSINOPHILS - REL (DIFF) 5.3 % Normal [facility] Comment on above: Performed By: #### 4 5456 #### LAB [address] [address] Jack Mendoza M.D. [id number] LYMPHOCYTES - ABS (DIFF) 0.63 K/mcL Low 0.90-4.00 [facility] Comment on above: Performed By: #### 4 5456 #### LAB [address] [address] Jack Mendoza M.D. [id number] LYMPHOCYTES - REL (DIFF) 11.4 % Normal [facility] Comment on above: Performed By: #### 4 5456 #### LAB [address] [place] [address] Jack Mendoza M.D. [id number] MONOCYTES - ABS (DIFF) 0.53 K/mcL Normal 0.30-0.90 [facility] Comment on above: Performed By: #### 4 5456 #### LAB [address] [address] Jack Mendoza M.D. [id number] MONOCYTES - REL (DIFF) 9.6 % Normal [facility] Comment on above: Performed By: #### 4 5456 #### LAB [address] [address] Jack Mendoza M.D. [id number] NEUTROPHILS - ABS (DIFF) 4.05 K/mcL Normal 1.70-7.00 [facility] Comment on above: Performed By: #### 4 5456 #### LAB [address] [address] Jack Mendoza M.D. [id number] NEUTROPHILS - REL (DIFF) 73.7 % Normal [facility] Comment on above: Performed By: #### 4 5456 #### LAB [address] [address] Jack Mendoza M.D. [id number] MORPHOLOGYon 10-23-2024 OVAL SCAN Many Normal [facility] Comment on above: Performed By: #### L [id number] ####[facility] LAB [address] [address] Jack Mendoza M.D. [id number] PLATELET ESTIMATE Decreased Abnormal Normal [facility] Comment on above: Performed By: #### L [id number] ####[facility] LAB [address] [address] Jack Mendoza M.D. [id number] PLATELETS LARGE Few Normal [facility] Comment on above: Performed By: #### L [id number] ####[facility] LAB [address] [id number] Jack Mendoza M.D. [id number] POLY SCAN Few Normal [facility] Comment on above: Performed By: #### L [id number] ####[facility] LAB [address] [address] Jack Mendoza M.D. [id number] RBC MORPH SCAN See Comment Normal [facility] Comment on above: Result Comment: RBC Indices confirmed with manual peripheral smear review. Performed By: #### L [id number] ####[facility] [address] [id number] Jack Mendoza M.D. [id number] SCHISTO SCAN Few Abnormal See Comment [facility] Comment on above: Performed By: #### L [id number] ####[facility] [address] [address] Jack Mendoza M.D. [id number] TARGET CELL SCAN Many Normal [facility] Comment on above: Performed By: #### L [id number] ####[facility] [address] [id number] Jack Mendoza M.D. [id number] VACUOLATED GRANULOCYTES Present Normal [facility] Comment on above: Performed By: #### L [id number] ####[facility] [address] [address] Jack Mendoza M.D. [id number] Manual Differential panel (B ld)on 10-23-2024 Basophils (Bld) [#/Vol] 0 10*3/uL [facility] Basophils/100 WBC (Bld) 0 % [facility] Eosinophils (Bld) [#/Vol] 0.29 10*3/uL [facility] Eosinophils/100 WBC (Bld) 5.3 % [facility] Lymphocytes (Bld) [#/Vol] 0.63 10*3/uL Low [facility] Lymphocytes/100 WBC (Bld) 11.4 % [facility] Monocytes (Bld) [#/Vol] 0.53 10*3/uL [facility] Monocytes/100 WBC (Bld) 9.6 % [facility] Neutrophils (Bld) [#/Vol] 4.05 10*3/uL [facility] Neutrophils/100 WBC (Bld) 73.7 % [facility] No Panel Informationon 10-23 Interpretation and review of laboratory results Abnormal [facility] BASIC METABOLIC PANELon Anion gap [Moles/Vol] 12 mmol/L Normal 10-20 [facility] Comment on above: Order Comment: [facility] has implemented the eGFR calculation approach that does not have a coefficient for race that conforms to the NKF-ASN Task Force Recommendations. Performed By: #### 4 6124 #### LAB [address] [address] Jack Mendoza M.D. [id number] Calcium [Mass/Vol] 8.9 mg/dL Normal 8.4-10.2 [facility] Comment on above: Order Comment: [facility] has implemented the eGFR calculation approach that does not have a coefficient for race that conforms to the NKF-ASN Task Force Recommendations. Performed By: #### 4 6124 #### LAB [address] [address] Jack Mendoza M.D. [id number] Chloride [Moles/Vol] 92 mmol/L Low 98-108 [facility] Comment on above: Order Comment: [facility] has implemented the eGFR calculation approach that does not have a coefficient for race that conforms to the NKF-ASN Task Force Recommendations. Performed By: #### 4 6124 #### LAB [address] [address] Jack Mendoza M.D. [id number] Creatinine [Mass/Vol] 0.72 mg/dL Normal 0.50-1.30 [facility] Comment on above: Order Comment: [facility] has implemented the eGFR calculation approach that does not have a coefficient for race that conforms to the NKF-ASN Task Force Recommendations. Performed By: #### 4 6124 #### LAB [address] [address] Jack Mendoza M.D. [id number] EGFR 106 mL/min/1.73 m2 Normal >=60 [facility] Comment on above: Order Comment: [facility] has implemented the eGFR calculation approach that does not have a coefficient for race that conforms to the NKF-ASN Task Force Recommendations. Result Comment: Ashley mated GFR was calculated using the 2020 CKD-EPI creatinine equation. Performed By: #### 4 6124 #### LAB [address] [address] Jack Mendoza M.D. [id number] Glucose [Mass/Vol] 121 mg/dL High 65-99 [facility] Comment on above: Order Comment: [facility] has implemented the eGFR calculation approach that does not have a coefficient for race that conforms to the NKF-ASN Task Force Recommendations. Performed By: #### 4 6124 #### LAB [address] [address] Jack Mendoza M.D. [id number] HCO3 (Bld) [Moles/Vol] 34 mmol/L High 21-32 [facility] Comment on above: Order Comment: [facility] has implemented the eGFR calculation approach that does not have a coefficient for race that conforms to the NKF-ASN Task Force Recommendations. Performed By: #### 4 6124 #### LAB [address] [address] Jack Mendoza M.D. [id number] Potassium [Moles/Vol] 4.4 mmol/L Normal 3.5-5.1 [facility] Comment on above: Order Comment: [facility] has implemented the eGFR calculation approach that does not have a coefficient for race that conforms to the NKF-ASN Task Force Recommendations. Performed By: #### 4 6158 #### LAB [address] [address] Jack Mendoza M.D. [id number] Sodium [Moles/Vol] 134 mmol/L Low 135-145 [facility] Comment on above: Order Comment: [facility] has implemented the eGFR calculation approach that does not have a coefficient for race that conforms to the NKF-ASN Task Force Recommendations. Performed By: #### 4 6124 #### LAB [address] [place], [place] [address] Jack Mendoza M.D. [id number] Urea nitrogen [Mass/Vol] 21 mg/dL Normal 8-25 [facility] Comment on above: Order Comment: [facility] has implemented the eGFR calculation approach that does not have a coefficient for race that conforms to the NKF-ASN Task Force Recommendations. Performed By: #### 4 6124 #### LAB [address] [place], [place] [address] Jack Mendoza M.D. [id number] Urea nitrogen/Creatinine [Mass ratio] 29.2 mg/mg High 10.0-20.0 [facility] Comment on above: Order Comment: [facility] has implemented the eGFR calculation approach that does not have a coefficient for race that conforms to the NKF-ASN Task Force Recommendations. Performed By: #### 4 6124 #### LAB [address] [place], [place] [address] Jack Mendoza M.D. [id number] Basic metabolic 2000 panelon 10-22-2024 Anion gap [Moles/Vol] 12 mmol/L 10 - 20 mmol/L [facility] Calcium [Mass/Vol] 8.9 mg/dL 8.4 - 10. 2 mg/dL [facility] Chloride [Moles/Vol] 92 mmol/L Low 98 - 10 8 mmol/L [facility] Creatinine [Mass/Vol] 0.72 mg/dL 0.50 - 1.30 mg/dL [facility] GFR/1.73 sq M.predicted CKD-EPI (S/P/Bld) [Vol rate/Area] 106 - PINF [facility] Comment on above: Estimated GFR was ca lculated using the 2020 CKD-EPI creatinine equation. Glucose [Mass/Vol] 121 mg/dL High 65 - 99 mg/dL [facility] HCO3 [Moles/Vol] 34 mmol/L High 21 - 32 mmol/L [facility] Interpretation and review of laboratory results Abnormal [facility] Potassium [Moles/Vol] 4.4 mmol/L 3.5 - 5.1 mmol/L [facility] Sodium [Moles/Vol] 134 mmol/L Low 135 - 145 mmol/L [facility] Urea nitrogen [Mass/Vol] 21 mg/dL 8 - 25 mg/dL [facility] Urea nitrogen/Creatinine [Mass ratio] 29.2 mg/mg High 10.0 - 20.0 [facility] has implemented the eGFR calculation approach that does not have a coefficient for race that conforms to the NKF-ASN Task Force Recommendations. [facility] CBC Auto Differentialon Basophils (Bld) [#/Vol] 0.02 10*3/uL [facility] Basophils/100 WBC (Bld) 0.4 % [facility] Eosinophils (Bld) [#/Vol] 0.16 10*3/uL [facility] Eosinophils/100 WBC (Bld) 3.5 % [facility] Erythrocyte distribution width (RBC) [Entitic vol] 17 % High 11.6 - 14.8 % [facility] Hematocrit (Bld) [Volume fraction] 38 % Low 41.0 - 53.0 % [facility] Hemoglobin (Bld) [Mass/Vol] 11.2 g/dL Low 13.5 - 17.5 g/dL [facility] Immature granulocytes (Bld) [#/Vol] 0.03 10*3/uL [facility] Immature granulocytes/100 WBC (Bld) 0.7 % [facility] Comment on above: The IG parameter is the percentage of metamyelocytes, myelocytes and promyelocytes. An immature granulocyte count (IG) of 1% or more suggests the possibility of infection, an IG count of 3% is very likely related to an infection. Interpretation and review of laboratory results Abnormal [facility] Lymphocytes (Bld) [#/Vol] 0.66 10*3/uL Low [facility] Lymphocytes/100 WBC (Bld) 14.6 % [facility] MCH (RBC) [Entitic mass] 20.2 pg Low 26.0 - 34.0 pg [facility] MCHC (RBC) [Mass/Vol] 29.5 g/dL Low 31.0 - 37.0 g/dL [facility] MCV (RBC) [Entitic vol] 68.5 fL Low 80.0 - 100.0 fL [facility] Monocytes (Bld) [#/Vol] 0.71 10*3/uL [facility] Monocytes/100 WBC (Bld) 15.7 % [facility] Neutrophils (Bld) [#/Vol] 2.95 10*3/uL [facility] Neutrophils/100 WBC (Bld) 65.1 % [facility] Nucleated RBC (Bld) [#/Vol] 0 10*3/uL [facility] Nucleated RBC/100 WBC (Bld) [Ratio] 0 % [facility] Platelets (Bld) [#/Vol] 120 10*3/uL Low [facility] RBC (Bld) [#/Vol] 5.55 10*6/uL [facility] WBC (Bld) [#/Vol] 4.53 10*3/uL [facility] CBC WITH AUTO DIFFERENTIALon 10-22-2024 AUTO NRBC 0.0 % [facility] Comment on above: Performed By: #### L [id number] #### LAB [address] [place] [address] Jack Mendoza M.D. [id number] AUTO NRBC ABS COUNT 0.00 K/mcL Normal 0.00-0.00 [facility] Comment on above: Performed By: #### L [id number] #### LAB [address] [place] [address] Jack Mendoza M.D. [id number] BASOPHILS ABSOLUTE COUNT 0.02 K/mcL Normal 0.00-0.30 [facility] Comment on above: Performed By: #### L [id number] #### LAB [address] [place] [address] Jack Mendoza M.D. [id number] Basophils/100 WBC (Bld) 0.4 % [facility] Comment on above: Performed By: #### L [id number] #### LAB [address] [place] [address] Jack Mendoza M.D. [id number] Eosinophils (Bld) [#/Vol] 0.16 10*3/uL Normal 0.00-0.50 [facility] Comment on above: Performed By: #### L [id number] #### LAB [address] [place] [address] Jack Mendoza M.D. [id number] Eosinophils/100 WBC (Bld) 3.5 % Normal [facility] Comment on above: Performed By: #### L [id number] #### LAB [address] [address] Jack Mendoza M.D. [id number] Erythrocyte distribution width (RBC) [Ratio] 17.0 % High 11.6-14.8 [facility] Comment on above: Performed By: #### L [id number] #### LAB [address] [address] Jack Mendoza M.D. [id number] Hematocrit (Bld) [Volume fraction] 38.0 % Low 41.0-53.0 [facility] Comment on above: Performed By: #### L [id number] #### LAB [address] [address] Jack Mendoza M.D. [id number] Hemoglobin (Bld) [Mass/Vol] 11.2 g/dL Low 13.5-17.5 [facility] Comment on above: Performed By: #### L [id number] #### LAB [address] [address] Jack Mendoza M.D. [id number] IG ABSOLUTE 0.03 K/mcL Normal 0.00-0.30 [facility] Comment on above: Performed By: #### L [id number] #### LAB [address] [address] Jack Mendoza M.D. [id number] IG PERCENT 0.70 % Normal [facility] Comment on above: Result Comment: The IG parameter is the percentage of metamyelocytes, myelocytes and promyelocytes. An immature granulocyte count (IG) of 1% or more suggests the possibility of infection, an IG count of 3% is very likely related to an infection. Performed By: #### L [id number] #### LAB [address] [place] [address] Jack Mendoza M.D. [id number] Lymphocytes (Bld) [#/Vol] 0.66 10*3/uL Low 0.90-4.00 [facility] Comment on above: Performed By: #### L [id number] #### LAB [address] [address] Jack Mendoza M.D. [id number] Lymphocytes/100 WBC (Bld) 14.6 % Normal [facility] Comment on above: Performed By: #### L [id number] #### LAB [address] [address] Jack Mendoza M.D. [id number] MCH (RBC) [Entitic mass] 20.2 pg Low 26.0-34.0 [facility] Comment on above: Performed By: #### L [id number] #### LAB [address] [address] Jack Mendoza M.D. [id number] MCV (RBC) [Entitic vol] 68.5 fL Low 80.0-100.0 [facility] Comment on above: Performed By: #### L [id number] #### LAB [address] [address] Jack Mendoza M.D. [id number] MEAN CORPUSCULAR HEMOGLOBIN CONC 29.5 g/dL Low 31.0-37.0 [facility] Comment on above: Performed By: #### L [id number] #### LAB [address] [address] Jack Mendoza M.D. [id number] Monocytes (Bld) [#/Vol] 0.71 10*3/uL Normal 0.30-0.90 [facility] Comment on above: Performed By: #### L [id number] #### LAB [address] [address] Jack Mendoza M.D. [id number] Monocytes/100 WBC (Bld) 15.7 % Normal [facility] Comment on above: Performed By: #### L [id number] #### LAB [address] [address] Jack Mendoza M.D. [id number] NEUTROPHILS ABSOLUTE COUNT 2.95 K/mcL Normal 1.70-7.00 [facility] Comment on above: Performed By: #### L [id number] #### LAB [address] [address] Jack Mendoza M.D. [id number] Neutrophils/100 WBC (Bld) 65.1 % Normal [facility] Comment on above: Performed By: #### L [id number] ####[facility] [address] [address] Jack Mendoza M.D. [id number] Platelets (Bld) [#/Vol] 120 10*3/uL Low 150-400 [facility] Comment on above: Performed By: #### L [id number] ####[facility] [address] [address] Jack Mendoza M.D. [id number] RBC (Bld) [#/Vol] 5.55 10*6/uL Normal 4.50-5.90 [facility] Comment on above: Performed By: #### L [id number] ####[facility] [address] [address] Jack Mendoza M.D. [id number] WBC (Bld) [#/Vol] 4.53 10*3/uL Normal 4.50-11.00 [facility] Comment on above: Performed By: #### L [id number] #### LAB [address] [address] Jack Mendoza M.D. [id number] MAGNESIUM LEVELon 10-22-2024 Magnesium [Mass/Vol] 2.0 mg/dL Normal 1.6-2.4 [facility] Comment on above: Performed By: #### 4 6109 ####[facility] [address] [address] Jack Mendoza M.D. [id number] Magnesium Levelon 10-22-2024 Magnesium [Mass/Vol] 2 mg/dL 1.6 - 2 .4 mg/dL [facility] Magnesium [Mass/Vol]on 10-22 Interpretation and review of laboratory results Normal [facility] No Panel Informationon 10-22 [facility] CBC Auto Differentialon Erythrocyte distribution width (RBC) [Entitic vol] 16.5 % High 11.6 - 14.8 % [facility] Hematocrit (Bld) [Volume fraction] 36.7 % Low 41.0 - 53.0 % [facility] Hemoglobin (Bld) [Mass/Vol] 10.9 g/dL Low 13.5 - 17.5 g/dL [facility] MCH (RBC) [Entitic mass] 20.6 pg Low 26.0 - 34.0 pg [facility] MCHC (RBC) [Mass/Vol] 29.7 g/dL Low 31.0 - 37.0 g/dL [facility] MCV (RBC) [Entitic vol] 69.5 fL Low 80.0 - 100.0 fL [facility] Nucleated RBC (Bld) [#/Vol] 0 10*3/uL [facility] Nucleated RBC/100 WBC (Bld) [Ratio] 0 % [facility] Platelet mean volume (Bld) [Entitic vol] 9.6 fL 9.4 - 12.4 fL [facility] Platelets (Bld) [#/Vol] 119 10*3/uL Low [facility] RBC (Bld) [#/Vol] 5.28 10*6/uL [facility] WBC (Bld) [#/Vol] 3.67 10*3/uL Low [facility] CBC WITH AUTO DIFFERENTIALon 10-21-2024 AUTO NRBC 0.0 % Normal [facility] Comment on above: Performed By: #### L [id number] #### LAB [address] [address] Jack Mendoza M.D. [id number] AUTO NRBC ABS COUNT 0.00 K/mcL Normal 0.00-0.00 [facility] Comment on above: Performed By: #### L [id number] #### LAB [address] [address] Jack Mendoza M.D. [id number] Erythrocyte distribution width (RBC) [Ratio] 16.5 % High 11.6-14.8 [facility] Comment on above: Performed By: #### L [id number] #### LAB [address] [address] Jack Mendoza M.D. [id number] Hematocrit (Bld) [Volume fraction] 36.7 % Low 41.0-53.0 [facility] Comment on above: Performed By: #### L [id number] #### LAB [address] [address] Jack Mendoza M.D. [id number] Hemoglobin (Bld) [Mass/Vol] 10.9 g/dL Low 13.5-17.5 [facility] Comment on above: Performed By: #### L [id number] ####[facility] [address] [address] Jack Mendoza M.D. [id number] MCH (RBC) [Entitic mass] 20.6 pg Low 26.0-34.0 [facility] Comment on above: Performed By: #### L [id number] #### LAB [address] [address] Jack Mendoza M.D. [id number] MCV (RBC) [Entitic vol] 69.5 fL Low 80.0-100.0 [facility] Comment on above: Performed By: #### L [id number] #### LAB [address] [address] Jack Mendoza M.D. [id number] MEAN CORPUSCULAR HEMOGLOBIN CONC 29.7 g/dL Low 31.0-37.0 [facility] Comment on above: Performed By: #### L [id number] #### LAB [address] [address] Jack Mendoza M.D. [id number] Platelet mean volume (Bld) [Entitic vol] 9.6 fL Normal 9.4-12.4 [facility] Comment on above: Performed By: #### L [id number] #### LAB [address] [address] Jack Mendoza M.D. [id number] Platelets (Bld) [#/Vol] 119 10*3/uL Low 150-400 [facility] Comment on above: Performed By: #### L [id number] ####[facility] [address] [address] Jack Mendoza M.D. [id number] RBC (Bld) [#/Vol] 5.28 10*6/uL Normal 4.50-5.90 [facility] Comment on above: Performed By: #### L [id number] #### LAB [address] [address] Jack Mendoza M.D. [id number] WBC (Bld) [#/Vol] 3.67 10*3/uL Low 4.50-11.00 [facility] Comment on above: Performed By: #### L [id number] #### LAB [address] [address] Jack Mendoza M.D. [id number] CBC and Diff Morphologyon Neutrophils.vacuolat ed LM Ql (Bld) Present [facility] Ovalocytes LM Ql (Bld) Few [facility] Platelets Large Auto Ql (Bld) Few [facility] Polychromasia LM Ql (Bld) Few [facility] RBC morphology finding Nom (Bld) See Comment [facility] Comment on above: RBC Indices confirme d with manual peripheral smear review. Target cells LM Ql (Bld) Few [facility] MANUAL DIFFERENTIALon 2024 BASOPHILS - ABS (DIFF) 0.00 K/mcL Normal 0.00-0.30 [facility] Comment on above: Performed By: #### 4 [id number] #### LAB [address] [address] Jack Mendoza M.D. [id number] BASOPHILS - REL (DIFF) 0.0 % Normal [facility] Comment on above: Performed By: #### 4 [id number] #### LAB [address] [address] Jack Mendoza M.D. [id number] EOSINOPHILS - ABS (DIFF) 0.13 K/mcL Normal 0.00-0.50 [facility] Comment on above: Performed By: #### 4 [id number] #### LAB [address] [address] Jack Mendoza M.D. [id number] EOSINOPHILS - REL (DIFF) 3.6 % Normal [facility] Comment on above: Performed By: #### 4 [id number] #### LAB [address] [address] Jack Mendoza M.D. [id number] LYMPHOCYTE ATYPICAL - REL (DIFF) 1.8 % [facility] Comment on above: Performed By: #### 4 5454 #### LAB [address] [address] Jack Mendoza M.D. [id number] LYMPHOCYTES - ABS (DIFF) 0.66 K/mcL Low 0.90-4.00 [facility] Comment on above: Performed By: #### 4 [id number] #### LAB [address] [address] Jack Mendoza M.D. [id number] LYMPHOCYTES - REL (DIFF) 16.2 % [facility] Comment on above: Performed By: #### 4 5456 #### LAB [address] [address] Jack Mendoza M.D. [id number] MONOCYTES - ABS (DIFF) 0.33 K/mcL Normal 0.30-0.90 [facility] Comment on above: Performed By: #### 4 [id number] #### LAB [address] [address] Jack Mendoza M.D. [id number] MONOCYTES - REL (DIFF) 9.0 % [facility] Comment on above: Performed By: #### 4 8249 #### LAB [address] [address] Jack Mendoza M.D. [id number] NEUTROPHILS - ABS (DIFF) 2.55 K/mcL Normal 1.70-7.00 [facility] Comment on above: Performed By: #### 4 [id number] #### LAB [address] [address] Jack Mendoza M.D. [id number] NEUTROPHILS - REL (DIFF) 69.4 % [facility] Comment on above: Performed By: #### 4 6493 ####[facility] LAB [address] [place], [place] [address] Jack Mendoza M.D. [id number] MORPHOLOGYon 10-21-2024 OVAL SCAN Few Normal [facility] Comment on above: Performed By: #### L [id number] ####[facility] LAB [address] [address] Jack Mendoza M.D. [id number] PLATELETS LARGE Few Normal [facility] Comment on above: Performed By: #### L [id number] ####[facility] [address] [address] Jack Mendoza M.D. [id number] POLY SCAN Few Normal [facility] Comment on above: Performed By: #### L [id number] #### LAB [address] [address] Jack Mendoza M.D. [id number] RBC MORPH SCAN See Comment [facility] Comment on above: Result Comment: RBC Indices confirmed with manual peripheral smear review. Performed By: #### L [id number] ####[facility] [address] [address] Jack Mendoza M.D. [id number] TARGET CELL SCAN Few Normal [facility] Comment on above: Performed By: #### L [id number] #### LAB [address] [address] Jack Mendoza M.D. [id number] VACUOLATED GRANULOCYTES Present [facility] Comment on above: Performed By: #### L [id number] #### LAB [address] [address] Jack Mendoza M.D. [id number] Manual Differential panel (B ld)on 10-21-2024 Basophils (Bld) [#/Vol] 0 10*3/uL [facility] Basophils/100 WBC (Bld) 0 % [facility] Eosinophils (Bld) [#/Vol] 0.13 10*3/uL [facility] Eosinophils/100 WBC (Bld) 3.6 % [facility] Lymphocytes (Bld) [#/Vol] 0.66 10*3/uL Low [facility] Lymphocytes/100 WBC (Bld) 16.2 % [facility] Monocytes (Bld) [#/Vol] 0.33 10*3/uL [facility] Monocytes/100 WBC (Bld) 9 % [facility] Neutrophils (Bld) [#/Vol] 2.55 10*3/uL [facility] Neutrophils/100 WBC (Bld) 69.4 % [facility] Variant lymphocytes/100 WBC (Bld) 1.8 % [facility] No Panel Informationon 10-21 Interpretation and review of laboratory results Abnormal [facility] Bacteria identified Cx Nom ( Bld)on 10-20-2024 Interpretation and review of laboratory results Normal [facility] Interpretation and review of laboratory results Normal [facility] Blood Culture Aerobic/Anaero bicon 10-20-2024 Bacteria identified Cx Nom (Bld) No [facility] [address] [facility] identified Cx Nom (Bld) No Growth after [address] [facility] CBC Auto Differentialon Erythrocyte distribution width (RBC) [Entitic vol] 16.5 % High 11.6 - 14.8 % [facility] Hematocrit (Bld) [Volume fraction] 33.5 % Low 41.0 - 53.0 % [facility] Hemoglobin (Bld) [Mass/Vol] 10 g/dL Low 13.5 - 17.5 g/dL [facility] MCH (RBC) [Entitic mass] 20.7 pg Low 26.0 - 34.0 pg [facility] MCHC (RBC) [Mass/Vol] 29.9 g/dL Low 31.0 - 37.0 g/dL [facility] MCV (RBC) [Entitic vol] 69.4 fL Low 80.0 - 100.0 fL [facility] Nucleated RBC (Bld) [#/Vol] 0 10*3/uL [facility] Nucleated RBC/100 WBC (Bld) [Ratio] 0 % [facility] Platelet mean volume (Bld) [Entitic vol] 9.6 fL 9.4 - 12.4 fL [facility] Platelets (Bld) [#/Vol] 109 10*3/uL Low [facility] RBC (Bld) [#/Vol] 4.83 10*6/uL [facility] WBC (Bld) [#/Vol] 3.49 10*3/uL Low [facility] CBC WITH AUTO DIFFERENTIALon 10-20-2024 AUTO NRBC 0.0 % Normal [facility] Comment on above: Performed By: #### L [id number] ####[facility] [address] [address] Jack Mendoza M.D. [id number] AUTO NRBC ABS COUNT 0.00 K/mcL Normal 0.00-0.00 [facility] Comment on above: Performed By: #### L [id number] #### LAB [address] [address] Jack Mendoza M.D. [id number] Erythrocyte distribution width (RBC) [Ratio] 16.5 % High 11.6-14.8 [facility] Comment on above: Performed By: #### L [id number] ####[facility] [address] [address] Jack Mendoza M.D. [id number] Hematocrit (Bld) [Volume fraction] 33.5 % Low 41.0-53.0 [facility] Comment on above: Performed By: #### L [id number] ####[facility] [address] [address] Jack Mendoza M.D. [id number] Hemoglobin (Bld) [Mass/Vol] 10.0 g/dL Low 13.5-17.5 [facility] Comment on above: Performed By: #### L [id number] #### LAB [address] [place] [address] Jack Mendoza M.D. [id number] MCH (RBC) [Entitic mass] 20.7 pg Low 26.0-34.0 [facility] Comment on above: Performed By: #### L [id number] ####[facility] [address] [address] Jack Mendoza M.D. [id number] MCV (RBC) [Entitic vol] 69.4 fL Low 80.0-100.0 [facility] Comment on above: Performed By: #### L [id number] ####[facility] [address] [place] [address] Jack Mendoza M.D. [id number] MEAN CORPUSCULAR HEMOGLOBIN CONC 29.9 g/dL Low 31.0-37.0 [facility] Comment on above: Performed By: #### L [id number] #### LAB [address] [address] Jack Mendoza M.D. [id number] Platelet mean volume (Bld) [Entitic vol] 9.6 fL Normal 9.4-12.4 [facility] Comment on above: Performed By: #### L [id number] #### LAB [address] [address] Jack Mendoza M.D. [id number] Platelets (Bld) [#/Vol] 109 10*3/uL Low 150-400 [facility] Comment on above: Performed By: #### L [id number] #### LAB [address] [address] Jack Mendoza M.D. [id number] RBC (Bld) [#/Vol] 4.83 10*6/uL Normal 4.50-5.90 [facility] Comment on above: Performed By: #### L [id number] #### LAB [address] [address] Jack Mendoza M.D. [id number] WBC (Bld) [#/Vol] 3.49 10*3/uL Low 4.50-11.00 [facility] Comment on above: Performed By: #### L [id number] #### LAB [address] [address] Jack Mendoza M.D. [id number] CBC and Diff Morphologyon Neutrophils.vacuolat ed LM Ql (Bld) Present [facility] Ovalocytes LM Ql (Bld) Few [facility] Platelets LM Ql (Bld) Decreased Abnormal Normal [facility] Polychromasia LM Ql (Bld) Few [facility] RBC morphology finding Nom (Bld) See Comment [facility] Comment on above: RBC Indices confirme d with manual peripheral smear review. Target cells LM Ql (Bld) Moderate [facility] MANUAL DIFFERENTIALon 2024 BASOPHILS - ABS (DIFF) 0.03 K/mcL Normal 0.00-0.30 [facility] Comment on above: Performed By: #### 4 5456 #### LAB [address] [address] Jack Mendoza M.D. [id number] BASOPHILS - REL (DIFF) 0.9 % [facility] Comment on above: Performed By: #### 4 5422 #### LAB [address] [address] Jack Mendoza M.D. [id number] EOSINOPHILS - ABS (DIFF) 0.15 K/mcL Normal 0.00-0.50 [facility] Comment on above: Performed By: #### 4 5461 #### LAB [address] [address] Jack Mendoza M.D. [id number] EOSINOPHILS - REL (DIFF) 4.3 % [facility] Comment on above: Performed By: #### 4 8056 #### LAB [address] [address] Jack Mendoza M.D. [id number] LYMPHOCYTES - ABS (DIFF) 0.34 K/mcL Low 0.90-4.00 [facility] Comment on above: Performed By: #### 4 5456 #### LAB [address] [address] Jack Mendoza M.D. [id number] LYMPHOCYTES - REL (DIFF) 9.6 % [facility] Comment on above: Performed By: #### 4 1648 #### LAB [address] [address] Jack Mendoza M.D. [id number] MONOCYTES - ABS (DIFF) 0.15 K/mcL Low 0.30-0.90 [facility] Comment on above: Performed By: #### 4 2504 #### LAB [address] [address] Jack Mendoza M.D. [id number] MONOCYTES - REL (DIFF) 4.3 % [facility] Comment on above: Performed By: #### 4 5456 #### LAB [address] [address] Jack Mendoza M.D. [id number] NEUTROPHILS - ABS (DIFF) 2.82 K/mcL Normal 1.70-7.00 [facility] Comment on above: Performed By: #### 4 5456 #### LAB [address] [id number] Jack Mendoza M.D. [id number] NEUTROPHILS - REL (DIFF) 80.9 % Normal [facility] Comment on above: Performed By: #### 4 5456 #### LAB [address] [address] Jack Mendoza M.D. [id number] MORPHOLOGYon 10-20-2024 OVAL SCAN Few [facility] Comment on above: Performed By: #### L [id number] #### LAB [address] [address] Jack Mendoza M.D. [id number] PLATELET ESTIMATE Decreased Abnormal Normal [facility] Comment on above: Performed By: #### L [id number] #### LAB [address] [address] Jack Mendoza M.D. [id number] POLY SCAN Few Normal [facility] Comment on above: Performed By: #### L [id number] #### LAB [address] [address] Jack Mendoza M.D. [id number] RBC MORPH SCAN See Comment Normal [facility] Comment on above: Result Comment: RBC Indices confirmed with manual peripheral smear review. Performed By: #### L [id number] #### LAB [address] [address] Jack Mendoza M.D. [id number] TARGET CELL SCAN Moderate Normal [facility] Comment on above: Performed By: #### L [id number] ####[facility] [address] [address] Jack Mendoza M.D. [id number] VACUOLATED GRANULOCYTES Present Normal [facility] Comment on above: Performed By: #### L [id number] ####[facility] [address] [place], [place] [address] Jack Mendoza M.D. [id number] Manual Differential panel (B ld)on 10-20-2024 Basophils (Bld) [#/Vol] 0.03 10*3/uL [facility] Basophils/100 WBC (Bld) 0.9 % [facility] Eosinophils (Bld) [#/Vol] 0.15 10*3/uL [facility] Eosinophils/100 WBC (Bld) 4.3 % [facility] Lymphocytes (Bld) [#/Vol] 0.34 10*3/uL Low [facility] Lymphocytes/100 WBC (Bld) 9.6 % [facility] Monocytes (Bld) [#/Vol] 0.15 10*3/uL Low [facility] Monocytes/100 WBC (Bld) 4.3 % [facility] Neutrophils (Bld) [#/Vol] 2.82 10*3/uL [facility] Neutrophils/100 WBC (Bld) 80.9 % [facility] No Panel Informationon 10-20 Interpretation and review of laboratory results Abnormal [facility] Wound Aerobic CultureOrdered By: Carlos Godwin on 10-20-2024 Bacteria identified Aer cx Nom (Wound) Light Growth Corynebacterium species, not JK Abnormal [facility] Interpretation and review of laboratory results Abnormal [facility] Microscopic observation Gram stain Nom (Wound) Moderate WBC [facility] Microscopic observation Gram stain Nom (Wound) No Organisms Seen [facility] CBC Auto Differentialon 09-23 Erythrocyte distribution width (RBC) [Entitic vol] 16.9 % High 11.6 - 14.8 % [facility] Hematocrit (Bld) [Volume fraction] 35.2 % Low 41.0 - 53.0 % [facility] Hemoglobin (Bld) [Mass/Vol] 10.3 g/dL Low 13.5 - 17.5 g/dL [facility] MCH (RBC) [Entitic mass] 20.3 pg Low 26.0 - 34.0 pg [facility] MCHC (RBC) [Mass/Vol] 29.3 g/dL Low 31.0 - 37.0 g/dL [facility] MCV (RBC) [Entitic vol] 69.3 fL Low 80.0 - 100.0 fL [facility] Nucleated RBC (Bld) [#/Vol] 0 10*3/uL [facility] Nucleated RBC/100 WBC (Bld) [Ratio] 0 % [facility] Platelet mean volume (Bld) [Entitic vol] 9.7 fL 9.4 - 12.4 fL [facility] Platelets (Bld) [#/Vol] 116 10*3/uL Low [facility] RBC (Bld) [#/Vol] 5.08 10*6/uL [facility] WBC (Bld) [#/Vol] 4.02 10*3/uL Low [facility] WITH AUTO DIFFERENTIALon 10-19-2024 AUTO NRBC 0.0 % Normal [facility] Comment on above: Performed By: #### L [id number] #### LAB [address] [address] Jack Mendoza M.D. [id number] AUTO NRBC ABS COUNT 0.00 K/mcL Normal 0.00-0.00 [facility] Comment on above: Performed By: #### L [id number] #### LAB [address] [address] Jack Mendoza M.D. [id number] Erythrocyte distribution width (RBC) [Ratio] 16.9 % High 11.6-14.8 [facility] Comment on above: Performed By: #### L [id number] #### LAB [address] [address] Jack Mendoza M.D. [id number] Hematocrit (Bld) [Volume fraction] 35.2 % Low 41.0-53.0 [facility] Comment on above: Performed By: #### L [id number] #### LAB [address] [address] Jack Mendoza M.D. [id number] Hemoglobin (Bld) [Mass/Vol] 10.3 g/dL Low 13.5-17.5 [facility] Comment on above: Performed By: #### L [id number] #### LAB [address] [address] Jack Mendoza M.D. [id number] MCH (RBC) [Entitic mass] 20.3 pg Low 26.0-34.0 [facility] Comment on above: Performed By: #### L [id number] #### LAB [address] [address] Jack Mendoza M.D. [id number] MCV (RBC) [Entitic vol] 69.3 fL Low 80.0-100.0 [facility] Comment on above: Performed By: #### L [id number] ####[facility] [address] [address] Jack Mendoza M.D. [id number] MEAN CORPUSCULAR HEMOGLOBIN CONC 29.3 g/dL Low 31.0-37.0 [facility] Comment on above: Performed By: #### L [id number] #### LAB [address] [address] Jack Mendoza M.D. [id number] Platelet mean volume (Bld) [Entitic vol] 9.7 fL Normal 9.4-12.4 [facility] Comment on above: Performed By: #### L [id number] #### LAB [address] [address] Jakc Mendoza M.D. [id number] Platelets (Bld) [#/Vol] 116 10*3/uL Low 150-400 [facility] Comment on above: Performed By: #### L [id number] #### LAB [address] [place] [address] Jack Mendoza M.D. [id number] RBC (Bld) [#/Vol] 5.08 10*6/uL Normal 4.50-5.90 [facility] Comment on above: Performed By: #### L [id number] ####[facility] [address] [place] [address] Jack Mendoza M.D. [id number] WBC (Bld) [#/Vol] 4.02 10*3/uL Low 4.50-11.00 [facility] Comment on above: Performed By: #### L [id number] #### LAB [address] [address] Jack Mendoza M.D. [id number] CBC and Diff Morphologyon Neutrophils.vacuolat ed LM Ql (Bld) Present [facility] Ovalocytes LM Ql (Bld) Many [facility] Platelets LM Ql (Bld) Decreased Abnormal Normal [facility] RBC morphology finding Nom (Bld) See Comment [facility] Comment on above: RBC Indices confirme d with manual peripheral smear review. Schistocytes Auto Ql (Bld) Few Abnormal See Comment [facility] Stomatocytes LM Ql (Bld) Few [facility] Target cells LM Ql (Bld) Many [facility] MANUAL DIFFERENTIALon 2024 BASOPHILS - ABS (DIFF) 0.04 K/mcL Normal 0.00-0.30 [facility] Comment on above: Performed By: #### 4 [id number] #### LAB [address] [address] Jack Mendoza M.D. [id number] BASOPHILS - REL (DIFF) 0.9 % Normal [facility] Comment on above: Performed By: #### 4 5456 #### LAB [address] [address] Jcak Mendoza M.D. [id number] EOSINOPHILS - ABS (DIFF) 0.04 K/mcL Normal 0.00-0.50 [facility] Comment on above: Performed By: #### 4 5456 #### LAB [address] [address] Jack Mendoza M.D. [id number] EOSINOPHILS - REL (DIFF) 0.9 % Normal [facility] Comment on above: Performed By: #### 4 5456 #### LAB [address] [address] Jack Mendoza M.D. [id number] LYMPHOCYTES - ABS (DIFF) 0.60 K/mcL Low 0.90-4.00 [facility] Comment on above: Performed By: #### 4 5456 #### LAB [address] [address] Jack Mendoza M.D. [id number] LYMPHOCYTES - REL (DIFF) 14.9 % Normal [facility] Comment on above: Performed By: #### 4 5456 #### LAB [address] [address] Jack Mendoza M.D. [id number] METAMYELOCYTES-REL (DIFF) 0.9 % Normal [facility] Comment on above: Performed By: #### 4 5456 #### LAB [address] [address] Jack Mendoza M.D. [id number] MONOCYTES - ABS (DIFF) 0.21 K/mcL Low 0.30-0.90 [facility] Comment on above: Performed By: #### 4 5456 #### LAB [address] [address] Jack Mendoza M.D. [id number] MONOCYTES - REL (DIFF) 5.2 % [facility] Comment on above: Performed By: #### 4 5456 #### LAB [address] [address] Jack Mendoza M.D. [id number] NEUTROPHILS - ABS (DIFF) 3.14 K/mcL Normal 1.70-7.00 [facility] Comment on above: Performed By: #### 4 5456 #### LAB [address] [address] Jack Mendoza M.D. [id number] NEUTROPHILS - REL (DIFF) 77.2 % [facility] Comment on above: Performed By: #### 4 5456 #### LAB [address] [address] Jack Mendoza M.D. [id number] MORPHOLOGYon 10-19-2024 OVAL SCAN Many Normal [facility] Comment on above: Performed By: #### L [id number] ####[facility] [address] [address] Jack Mendoza M.D. [id number] PLATELET ESTIMATE Decreased Abnormal Normal [facility] Comment on above: Performed By: #### L [id number] ####[facility] [address] [address] Jack Mendoza M.D. [id number] RBC MORPH SCAN See Comment Normal [facility] Comment on above: Result Comment: RBC Indices confirmed with manual peripheral smear review. Performed By: #### L [id number] ####[facility] [address] [place], [place] [address] Jack Mendoza M.D. [id number] SCHISTO SCAN Few Abnormal See Comment [facility] Comment on above: Performed By: #### L [id number] ####[facility] [address] [place], [place] [address] Jack Mendoza M.D. [id number] STOMATOCYTES Few Normal [facility] Comment on above: Performed By: #### L [id number] ####[facility] [address] [id number] Jack Mendoza M.D. [id number] TARGET CELL SCAN Many Normal [facility] Comment on above: Performed By: #### L [id number] ####[facility] [address] [address] Jack Mendoza M.D. [id number] VACUOLATED GRANULOCYTES Present Normal [facility] Comment on above: Performed By: #### L [id number] ####[facility] [address] [id number] Jack Mendoza M.D. [id number] Manual Differential panel (B ld)on 10-19-2024 Basophils (Bld) [#/Vol] 0.04 10*3/uL [facility] Basophils/100 WBC (Bld) 0.9 % [facility] Eosinophils (Bld) [#/Vol] 0.04 10*3/uL [facility] Eosinophils/100 WBC (Bld) 0.9 % [facility] Lymphocytes (Bld) [#/Vol] 0.6 10*3/uL Low [facility] Lymphocytes/100 WBC (Bld) 14.9 % [facility] Metamyelocytes/100 WBC (Bld) 0.9 % [facility] Monocytes (Bld) [#/Vol] 0.21 10*3/uL Low [facility] Monocytes/100 WBC (Bld) 5.2 % [facility] Neutrophils (Bld) [#/Vol] 3.14 10*3/uL [facility] Neutrophils/100 WBC (Bld) 77.2 % [facility] No Panel Informationon 10-19 Interpretation and review of laboratory results Abnormal [facility] CBC Auto Differentialon 09-23 Basophils (Bld) [#/Vol] 0.01 10*3/uL [facility] Basophils/100 WBC (Bld) 0.2 % [facility] Eosinophils (Bld) [#/Vol] 0.02 10*3/uL [facility] Eosinophils/100 WBC (Bld) 0.5 % [facility] Erythrocyte distribution width (RBC) [Entitic vol] 16.5 % High 11.6 - 14.8 % [facility] Hematocrit (Bld) [Volume fraction] 36 % Low 41.0 - 53.0 % [facility] Hemoglobin (Bld) [Mass/Vol] 10.4 g/dL Low 13.5 - 17.5 g/dL [facility] Immature granulocytes (Bld) [#/Vol] 0.02 10*3/uL [facility] Immature granulocytes/100 WBC (Bld) 0.5 % [facility] Comment on above: The IG parameter is the percentage of metamyelocytes, myelocytes and promyelocytes. An immature granulocyte count (IG) of 1% or more suggests the possibility of infection, an IG count of 3% is very likely related to an infection. Interpretation and review of laboratory results Abnormal [facility] Lymphocytes (Bld) [#/Vol] 0.49 10*3/uL Low [facility] Lymphocytes/100 WBC (Bld) 12.1 % [facility] MCH (RBC) [Entitic mass] 20.5 pg Low 26.0 - 34.0 pg [facility] MCHC (RBC) [Mass/Vol] 28.9 g/dL Low 31.0 - 37.0 g/dL [facility] MCV (RBC) [Entitic vol] 70.9 fL Low 80.0 - 100.0 fL [facility] Monocytes (Bld) [#/Vol] 0.3 10*3/uL [facility] Monocytes/100 WBC (Bld) 7.4 % [facility] Neutrophils (Bld) [#/Vol] 3.21 10*3/uL [facility] Neutrophils/100 WBC (Bld) 79.3 % [facility] Nucleated RBC (Bld) [#/Vol] 0 10*3/uL [facility] Nucleated RBC/100 WBC (Bld) [Ratio] 0 % [facility] Platelet mean volume (Bld) [Entitic vol] 10.1 fL 9.4 - 12.4 fL [facility] Platelets (Bld) [#/Vol] 117 10*3/uL Low [facility] RBC (Bld) [#/Vol] 5.08 10*6/uL [facility] WBC (Bld) [#/Vol] 4.05 10*3/uL Low [facility] WITH AUTO DIFFERENTIALon 10-18-2024 AUTO NRBC 0.0 % [facility] Comment on above: Performed By: #### L [id number] #### LAB [address] [place] [address] Jack Mendoza M.D. [id number] AUTO NRBC ABS COUNT 0.00 K/mcL Normal 0.00-0.00 [facility] Comment on above: Performed By: #### L [id number] #### LAB [address] [place] [address] Jack Mendoza M.D. [id number] BASOPHILS ABSOLUTE COUNT 0.01 K/mcL Normal 0.00-0.30 [facility] Comment on above: Performed By: #### L [id number] #### LAB [address] [place] [address] Jack Mendoza M.D. [id number] Basophils/100 WBC (Bld) 0.2 % [facility] Comment on above: Performed By: #### L [id number] #### LAB [address] [place] [address] Jack Mendoza M.D. [id number] Eosinophils (Bld) [#/Vol] 0.02 10*3/uL Normal 0.00-0.50 [facility] Comment on above: Performed By: #### L [id number] #### LAB [address] [place] [address] Jack Mendoza M.D. [id number] Eosinophils/100 WBC (Bld) 0.5 % [facility] Comment on above: Performed By: #### L [id number] #### LAB [address] [address] Jack Mendoza M.D. [id number] Erythrocyte distribution width (RBC) [Ratio] 16.5 % High 11.6-14.8 [facility] Comment on above: Performed By: #### L [id number] #### LAB [address] [address] Jack Mendoza M.D. [id number] Hematocrit (Bld) [Volume fraction] 36.0 % Low 41.0-53.0 [facility] Comment on above: Performed By: #### L [id number] #### LAB [address] [address] Jack Mendoza M.D. [id number] Hemoglobin (Bld) [Mass/Vol] 10.4 g/dL Low 13.5-17.5 [facility] Comment on above: Performed By: #### L [id number] #### LAB [address] [address] Jack Mendoza M.D. [id number] IG ABSOLUTE 0.02 K/mcL Normal 0.00-0.30 [facility] Comment on above: Performed By: #### L [id number] #### LAB [address] [address] Jack Mendoza M.D. [id number] IG PERCENT 0.50 % Normal [facility] Comment on above: Result Comment: The IG parameter is the percentage of metamyelocytes, myelocytes and promyelocytes. An immature granulocyte count (IG) of 1% or more suggests the possibility of infection, an IG count of 3% is very likely related to an infection. Performed By: #### L [id number] ####[facility] [address] [place] [address] Jack Mendoza M.D. [id number] Lymphocytes (Bld) [#/Vol] 0.49 10*3/uL Low 0.90-4.00 [facility] Comment on above: Performed By: #### L [id number] #### LAB [address] [place] [address] Jack Mendoza M.D. [id number] Lymphocytes/100 WBC (Bld) 12.1 % Normal [facility] Comment on above: Performed By: #### L [id number] #### LAB [address] [address] Jack Mendoza M.D. [id number] MCH (RBC) [Entitic mass] 20.5 pg Low 26.0-34.0 [facility] Comment on above: Performed By: #### L [id number] ####[facility] LAB [address] [address] Jack Mendoza M.D. [id number] MCV (RBC) [Entitic vol] 70.9 fL Low 80.0-100.0 [facility] Comment on above: Performed By: #### L [id number] #### LAB [address] [address] Jack Mendoza M.D. [id number] MEAN CORPUSCULAR HEMOGLOBIN CONC 28.9 g/dL Low 31.0-37.0 [facility] Comment on above: Performed By: #### L [id number] #### LAB [address] [address] Jack Mendoza M.D. [id number] Monocytes (Bld) [#/Vol] 0.30 10*3/uL Normal 0.30-0.90 [facility] Comment on above: Performed By: #### L [id number] #### LAB [address] [address] Jack Mendoza M.D. [id number] Monocytes/100 WBC (Bld) 7.4 % Normal [facility] Comment on above: Performed By: #### L [id number] ####[facility] LAB [address] [address] Jack Mendoza M.D. [id number] NEUTROPHILS ABSOLUTE COUNT 3.21 K/mcL Normal 1.70-7.00 [facility] Comment on above: Performed By: #### L [id number] #### LAB [address] [address] Jack Mendoza M.D. [id number] Neutrophils/100 WBC (Bld) 79.3 % Normal [facility] Comment on above: Performed By: #### L [id number] #### LAB [address] [address] Jack Mendoza M.D. [id number] Platelet mean volume (Bld) [Entitic vol] 10.1 fL Normal 9.4-12.4 [facility] Comment on above: Performed By: #### L [id number] ####[facility] LAB [address] [address] Jack Mendoza M.D. [id number] Platelets (Bld) [#/Vol] 117 10*3/uL Low 150-400 [facility] Comment on above: Performed By: #### L [id number] #### LAB [address] [address] Jack Mendoza M.D. [id number] RBC (Bld) [#/Vol] 5.08 10*6/uL Normal 4.50-5.90 [facility] Comment on above: Performed By: #### L [id number] ####[facility] LAB [address] [address] Jack Mendoza M.D. [id number] WBC (Bld) [#/Vol] 4.05 10*3/uL Low 4.50-11.00 [facility] Comment on above: Performed By: #### L [id number] #### LAB [address] [address] Jack Mendoza M.D. [id number] CRP [Mass/Vol]on 10-18-2024 Interpretation and review of laboratory results Normal [facility] CRP, INFLAMMATIONon 10-18-19 CRP [Mass/Vol] 9.6 mg/L Normal 0.0-10.0 [facility] Comment on above: Performed By: #### 4 5334 ####[facility] [address] [address] Jack Mendoza M.D. [id number] CRP, Inflammationon 10-18-19 CRP [Mass/Vol] 9.6 mg/L 0.0 - 10.0 mg/L [facility] ECG 12 Lead (Now)on 10-18-19 Atrial Rate 92 BPM [facility] P Bison 52 degrees [facility] P-R Interval 144 ms [facility] Q-T Interval 380 ms [facility] QRS Duration 80 ms [facility] QTC Calculation (Bezet) 469 ms [facility] R Bison 47 degrees [facility] T Bison 34 degrees [facility] Ventricular Rate 92 BPM [facility] Normal sinus rhythm Nonspecific ST abnormality Abnormal ECG ECG Cart Interpretation see physician note for interpretation. Confirmed by Whit Pearson ([id number]) on 10/17/2024 3:42:06 PM MUSE [facility] US ANKLE/BRACHIAL INDICES EX TREMITY LIMITEDon 10-18-2024 US ANKLE/BRACHIAL INDICES EXTREMITY LIMITED Normal [facility] Doppler ankle/brachial in dexon 10-18-2024 Patient Info Name: CARMEN GILMAN Age: 59 years : 1965 Gender: Male Exam Date: 10/17/2024 2:36 PM Patient Status: Inpatient Stallion Keeper: Margy Bradley RVT Referring Physician: QUYEN FRANCO NP; Indications - Leg and foot ulcers R09.89 - Other specified symptoms and signs involving the circulatory and respiratory systems Procedure Description [id number] Limited bilateral noninvasive physiologic studies of upper [...] Sb Savage MD on 10/18/2024 09:06 AM FUJI SYNAPSE CV Sb Savage MD - 10/18/2024 Patient Info Name: CARMEN GILMAN Age: 59 years : 1965 Gender: Male Exam Date: 10/17/2024 2:36 PM Patient Status: Inpatient Stallion Keeper: Margy Bradley RVT Referring Physician: QUYEN FRANCO CAR 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 MAKER; Indications - Leg and foot ulcers R09.89 - Other specified symptoms and signs involving the circulatory and respiratory systems Procedure Description [id number] Limited bilateral noninvasive physiologic studies of upper [...] Sb Savage MD on 10/18/2024 09:06 AM [facility] WOUND AEROBIC CULTUREon 09-23 WOUND AEROBIC CULTURE AEROBIC CULTURE CORYNEBACTERIUM SPECIES Light Growth Corynebacterium species, not JK GRAM STAIN RESULT Moderate WBC No Organisms Seen Abnormal [facility] Comment on above: Performed By: #### 4 [id number] ####[facility] [address] [place] [address] Venancio Richardson M.D. [id number] XR Thoracic spine 2 Viewson 10-18-2024 No significant change Workstation ID: [id number] [facility] RIS EXAMINATION: XR THORACIC SPINE 2 VIEWS 10/17/2024 6:10 pm HISTORY: ORDERING SYSTEM PROVIDED HISTORY: Upright XR in TLSO brace, TECHNOLOGIST PROVIDED HISTORY: Illness/Other Reason for exam: Upright XR in TLSO brace Cancer History: u Surgery, RadiationHistory: u Encounter Type: Initial Additional signs and symptoms: . ORDERING SYSTEM PROVIDED DIAGNOSIS CODES: J96.01 Acute respiratory failure with hypoxia ([facility]) J44.1 COPD exacerbation ([facility]) L03.90 Cellulitis, unspecified cellulitis site A41.9 Sepsis, due to unspecified organism, unspecified whether acute organ dysfunction present ([facility]) S22.060A Compression fracture of T7 vertebra, initial encounter ([facility]) M17.11 Osteoarthritis of right knee, unspecified osteoarthritis type I50.31 Acute heart failure with preserved ejection fraction (HFpEF) ([facility]) I50.32 Chronic diastolic congestive heart failure ([facility]) I95.9 Hypotension, unspecified hypotension type E11.9 Type 2 diabetes mellitus without complication, without long-term current use of insulin ([facility]) I48.91 Atrial fibrillation with rapid ventricular response ([facility]) E66.01 Morbid obesity with BMI of 40.0-44.9, adult ([facility]) Z68.41 Morbid obesity with BMI of 40.0-44.9, adult ([facility]) K74.60 Hepatic cirrhosis, unspecified hepatic cirrhosis type, unspecified whether ascites present ([facility]) J44.1 Acute exacerbation of chronic obstructive pulmonary disease (COPD) ([facility]) COMPARISON: MRI 10/16/2024 FINDINGS: Unchanged alignment of the thoracic spine. Unchanged appearance of a T7 compression fracture. No new fracture is evident. Probable right basilar atelectasis GE Yoly Waller MD - 10/18/2024 EXAMINATION: XR THORACIC SPINE 2 VIEWS 10/17/2024 6:10 pm HISTORY: ORDERING SYSTEM PROVIDED HISTORY: Upright XR in TLSO brace, TECHNOLOGIST PROVIDED HISTORY: Illness/Other Reason for exam: Upright XR in TLSO brace Cancer History: u Surgery, RadiationHistory: u Encounter Type: Initial Additional signs and symptoms: . ORDERING SYSTEM PROVIDED DIAGNOSIS CODES: J96.01 Acute respiratory failure with hypoxia ([facility]) J44.1 COPD exacerbation ([facility]) L03.90 Cellulitis, unspecified cellulitis site A41.9 Sepsis, due to unspecified organism, unspecified whether acute organ dysfunction present ([facility]) S22.060A Compression fracture of T7 vertebra, initial encounter ([facility]) M17.11 Osteoarthritis of right knee, unspecified osteoarthritis type I50.31 Acute heart failure with preserved ejection fraction (HFpEF) ([facility]) I50.32 Chronic diastolic congestive heart failure ([facility]) I95.9 Hypotension, unspecified hypotension type E11.9 Type 2 diabetes mellitus without complication, without long-term current use of insulin ([facility]) I48.91 Atrial fibrillation with rapid ventricular response ([facility]) E66.01 Morbid obesity with BMI of 40.0-44.9, adult ([facility]) Z68.41 Morbid obesity with BMI of 40.0-44.9, adult ([facility]) K74.60 Hepatic cirrhosis, unspecified hepatic cirrhosis type, unspecified whether ascites present ([facility]) J44.1 Acute exacerbation of chronic obstructive pulmonary disease (COPD) ([facility]) COMPARISON: MRI 10/16/2024 FINDINGS: Unchanged alignment of the thoracic spine. Unchanged appearance of a T7 compression fracture. No new fracture is evident. Probable right basilar atelectasis IMPRESSION: No significant change Workstation ID: [id number] [facility] XR Thoracic spine 2 ViewsOrd ered By: Yoly Lai on 10-18-2024 [facility] Work Phone: CBC Auto Differentialon 09-23 Basophils (Bld) [#/Vol] 0.01 10*3/uL [facility] Basophils/100 WBC (Bld) 0.2 % [facility] Eosinophils (Bld) [#/Vol] 0.01 10*3/uL [facility] Eosinophils/100 WBC (Bld) 0.2 % [facility] Erythrocyte distribution width (RBC) [Entitic vol] 16.6 % High 11.6 - 14.8 % [facility] Hematocrit (Bld) [Volume fraction] 32.7 % Low 41.0 - 53.0 % [facility] Hemoglobin (Bld) [Mass/Vol] 9.7 g/dL Low 13.5 - 17.5 g/dL [facility] Immature granulocytes (Bld) [#/Vol] 0.02 10*3/uL [facility] Immature granulocytes/100 WBC (Bld) 0.5 % [facility] Comment on above: The IG parameter is the percentage of metamyelocytes, myelocytes and promyelocytes. An immature granulocyte count (IG) of 1% or more suggests the possibility of infection, an IG count of 3% is very likely related to an infection. Interpretation and review of laboratory results Abnormal [facility] Lymphocytes (Bld) [#/Vol] 0.54 10*3/uL Low [facility] Lymphocytes/100 WBC (Bld) 12.5 % [facility] MCH (RBC) [Entitic mass] 20.9 pg Low 26.0 - 34.0 pg [facility] MCHC (RBC) [Mass/Vol] 29.7 g/dL Low 31.0 - 37.0 g/dL [facility] MCV (RBC) [Entitic vol] 70.3 fL Low 80.0 - 100.0 fL [facility] Monocytes (Bld) [#/Vol] 0.3 10*3/uL [facility] Monocytes/100 WBC (Bld) 7 % [facility] Neutrophils (Bld) [#/Vol] 3.43 10*3/uL [facility] Neutrophils/100 WBC (Bld) 79.6 % [facility] Nucleated RBC (Bld) [#/Vol] 0 10*3/uL [facility] Nucleated RBC/100 WBC (Bld) [Ratio] 0 % [facility] Platelet mean volume (Bld) [Entitic vol] 9.7 fL 9.4 - 12.4 fL [facility] Platelets (Bld) [#/Vol] 111 10*3/uL Low [facility] RBC (Bld) [#/Vol] 4.65 10*6/uL [facility] WBC (Bld) [#/Vol] 4.31 10*3/uL Low [facility] WITH AUTO DIFFERENTIALon 10-17-2024 AUTO NRBC 0.0 % [facility] Comment on above: Performed By: #### L [id number] #### LAB [address] [place] [address] Jack Mendoza M.D. [id number] AUTO NRBC ABS COUNT 0.00 K/mcL Normal 0.00-0.00 [facility] Comment on above: Performed By: #### L [id number] #### LAB [address] [place] [address] Jack Mendoza M.D. [id number] BASOPHILS ABSOLUTE COUNT 0.01 K/mcL Normal 0.00-0.30 [facility] Comment on above: Performed By: #### L [id number] #### LAB [address] [place] [address] Jack Mednoza M.D. [id number] Basophils/100 WBC (Bld) 0.2 % [facility] Comment on above: Performed By: #### L [id number] #### LAB [address] [address] Jack Mendoza M.D. [id number] Eosinophils (Bld) [#/Vol] 0.01 10*3/uL Normal 0.00-0.50 [facility] Comment on above: Performed By: #### L [id number] #### LAB [address] [place] [address] Jack Mendoza M.D. [id number] Eosinophils/100 WBC (Bld) 0.2 % [facility] Comment on above: Performed By: #### L [id number] #### LAB [address] [address] Jack Mendoza M.D. [id number] Erythrocyte distribution width (RBC) [Ratio] 16.6 % High 11.6-14.8 [facility] Comment on above: Performed By: #### L [id number] #### LAB [address] [address] Jack Mendoza M.D. [id number] Hematocrit (Bld) [Volume fraction] 32.7 % Low 41.0-53.0 [facility] Comment on above: Performed By: #### L [id number] #### LAB [address] [address] Jack Mendoza M.D. [id number] Hemoglobin (Bld) [Mass/Vol] 9.7 g/dL Low 13.5-17.5 [facility] Comment on above: Performed By: #### L [id number] #### LAB [address] [place] [address] Jack Mendoza M.D. [id number] IG ABSOLUTE 0.02 K/mcL Normal 0.00-0.30 [facility] Comment on above: Performed By: #### L [id number] #### LAB [address] [place] [address] Jack Mendoza M.D. [id number] IG PERCENT 0.50 % Normal [facility] Comment on above: Result Comment: The IG parameter is the percentage of metamyelocytes, myelocytes and promyelocytes. An immature granulocyte count (IG) of 1% or more suggests the possibility of infection, an IG count of 3% is very likely related to an infection. Performed By: #### L [id number] #### LAB [address] [place] [address] Jack Mendoza M.D. [id number] Lymphocytes (Bld) [#/Vol] 0.54 10*3/uL Low 0.90-4.00 [facility] Comment on above: Performed By: #### L [id number] #### LAB [address] [address] Jack Mendoza M.D. [id number] Lymphocytes/100 WBC (Bld) 12.5 % Normal [facility] Comment on above: Performed By: #### L [id number] #### LAB [address] [address] Jack Mendoza M.D. [id number] MCH (RBC) [Entitic mass] 20.9 pg Low 26.0-34.0 [facility] Comment on above: Performed By: #### L [id number] #### LAB [address] [address] Jack Mendoza M.D. [id number] MCV (RBC) [Entitic vol] 70.3 fL Low 80.0-100.0 [facility] Comment on above: Performed By: #### L [id number] #### LAB [address] [address] Jack Mendoza M.D. [id number] MEAN CORPUSCULAR HEMOGLOBIN CONC 29.7 g/dL Low 31.0-37.0 [facility] Comment on above: Performed By: #### L [id number] #### LAB [address] [address] Jack Mendoza M.D. [id number] Monocytes (Bld) [#/Vol] 0.30 10*3/uL Normal 0.30-0.90 [facility] Comment on above: Performed By: #### L [id number] #### LAB [address] [address] Jack Mendoza M.D. [id number] Monocytes/100 WBC (Bld) 7.0 % Normal [facility] Comment on above: Performed By: #### L [id number] #### LAB [address] [address] Jack Mendoza M.D. [id number] NEUTROPHILS ABSOLUTE COUNT 3.43 K/mcL Normal 1.70-7.00 [facility] Comment on above: Performed By: #### L [id number] ####[facility] LAB [address] [id number] Jack Mendoza M.D. [id number] Neutrophils/100 WBC (Bld) 79.6 % Normal [facility] Comment on above: Performed By: #### L [id number] ####[facility] LAB [address] [address] Jack Mendoza M.D. [id number] Platelet mean volume (Bld) [Entitic vol] 9.7 fL Normal 9.4-12.4 [facility] Comment on above: Performed By: #### L [id number] ####[facility] LAB [address] [id number] Jack Mendoza M.D. [id number] Platelets (Bld) [#/Vol] 111 10*3/uL Low 150-400 [facility] Comment on above: Performed By: #### L [id number] ####[facility] LAB [address] [address] Jack Mendoza M.D. [id number] RBC (Bld) [#/Vol] 4.65 10*6/uL Normal 4.50-5.90 [facility] Comment on above: Performed By: #### L [id number] ####[facility] LAB [address] [address] Jack Mendoza M.D. [id number] WBC (Bld) [#/Vol] 4.31 10*3/uL Low 4.50-11.00 [facility] Comment on above: Performed By: #### L [id number] ####[facility] LAB [address] [address] Jack Mendoza M.D. [id number] CONSULTon 10-17-2024 CONSULT Normal [facility] ESR Westergren method (Bld) [Velocity]on 10-17-2024 ESR (Bld) [Velocity] 49 mm/h [facility] Interpretation and review of laboratory results Abnormal [facility] HEMOGLOBIN A1Con 10-17-2024 Glucose [Mass/Vol] 131 mg/dL High 74-114 [facility] Comment on above: Performed By: #### 4 [id number] #### LAB [address] [place], [place] [address] Jack Mendoza M.D. [id number] HbA1c (Bld) [Mass fraction] 6.2 % High 4.2-5.6 [facility] Comment on above: Performed By: #### 4 8202 #### LAB [address] [place], [place] [address] Jack Mendoza M.D. [id number] HbA1c (Bld) [Mass fraction]o n 10-17-2024 Average glucose Estimated from glycated hemoglobin (Bld) [Mass/Vol] 131 mg/dL High 74 - 114 mg/dL [facility] Interpretation and review of laboratory results Abnormal [facility] Hemoglobin A1con 10-17-2024 HbA1c (Bld) [Mass fraction] 6.2 % High 4.2 - 5.6 % [facility] MR FOOT RIGHT WITHOUT CONTRA STon 10-17-2024 MR FOOT RIGHT WITHOUT CONTRAST Normal [facility] Comment on above: Order Comment: Injur [...] and degenerative arthropathy. PD/ads Workstation ID: [id number] [facility] EXAMINATION: MR FOOT RIGHT WITHOUT CONTRAST HISTORY: [...] CODES: J96.01 Acute respiratory failure with hypoxia ([facility]) J44.1 COPD exacerbation ([facility]) L03.90 Cellulitis, unspecified cellulitis site A41.9 Sepsis, due to unspecified organism, unspecified whether acute organ dysfunction present ([facility]) S22.060A Compression fracture of T7 vertebra, initial encounter ([facility]) COMPARISON: None. TECHNIQUE: Multiplanar, multisequence imaging of [...] over the dorsum of the foot seen. [facility] Fortino Marina MD - 10/17/2024 EXAMINATION: MR [...] failure with hypoxia ([facility]) J44.1 COPD exacerbation ([facility]) L03.90 Cellulitis, unspecified cellulitis site A41.9 Sepsis, due to unspecified organism, unspecified whether acute organ dysfunction present ([facility]) S22.060A Compression fracture of T7 vertebra, initial encounter ([facility]) COMPARISON: None. TECHNIQUE: Multiplanar, multisequence imaging of [...] and degenerative arthropathy. PD/ads Workstation ID: [id number] [facility] Radiology Study observation (narrative) [facility] MR Foot - right WO contrastO rdered By: Fortino Marina on 10-17-2024 [facility] Work Phone: SEDIMENTATION RATEon 025 SEDIMENTATION RATE, ERYTHROCYTE 49 mm/hr High 0-20 [facility] Comment on above: Performed By: #### 4 [id number] ####[facility] LAB [address] [place], [place] [address] Jack Mendoza M.D. [id number] XR THORACIC SPINE 2 VIEWSon 10-17-2024 XR THORACIC SPINE 2 VIEWS Normal [facility] Comment on above: Order Comment: Injur y/Trauma or Illness?:Illness/OtherHow long have you had these symptoms (acute/chronic)?:AcuteReason for exam?:Upright XR in TLSO braceHistory of cancer?:uSurgeries, chemotherapy, or radiation?:uType of Exam?:InitialAdditional signs and symptoms?:. XR Thoracic spine 2 Viewson 10-17-2024 Radiology Study observation (narrative) [facility] BASIC METABOLIC PANELon 09-23 Anion gap [Moles/Vol] 14 mmol/L Normal 10- [facility] Comment on above: Order Comment: [facility] has implemented the eGFR calculation approach that does not have a coefficient for race that conforms to the NKF-ASN Task Force Recommendations. Performed By: #### 4 6124 #### LAB [address] [place], [place] [address] Jack Mendoza M.D. [id number] Calcium [Mass/Vol] 8.7 mg/dL Normal 8.4-10.2 [facility] Comment on above: Order Comment: [facility] has implemented the eGFR calculation approach that does not have a coefficient for race that conforms to the NKF-ASN Task Force Recommendations. Performed By: #### 4 6124 #### LAB [address] [id number] Jack Mendoza M.D. [id number] Chloride [Moles/Vol] 97 mmol/L Low 98-108 [facility] Comment on above: Order Comment: [facility] has implemented the eGFR calculation approach that does not have a coefficient for race that conforms to the NKF-ASN Task Force Recommendations. Performed By: #### 4 6124 #### LAB [address] [place] [id number] Jack Mendoza M.D. [id number] Creatinine [Mass/Vol] 0.66 mg/dL Normal 0.50-1.30 [facility] Comment on above: Order Comment: [facility] has implemented the eGFR calculation approach that does not have a coefficient for race that conforms to the NKF-ASN Task Force Recommendations. Performed By: #### 4 6131 #### LAB [address] [place], [place] [address] Jack Mendoza M.D. [id number] EGFR 109 mL/min/1.73 m2 Normal >=60 [facility] Comment on above: Order Comment: [facility] has implemented the eGFR calculation approach that does not have a coefficient for race that conforms to the NKF-ASN Task Force Recommendations. Result Comment: Ashley mated GFR was calculated using the 2020 CKD-EPI creatinine equation. Performed By: #### 4 6124 ####[facility] LAB [address] [address] Jack Mendoza M.D. [id number] Glucose [Mass/Vol] 156 mg/dL High 65-99 [facility] Comment on above: Order Comment: [facility] has implemented the eGFR calculation approach that does not have a coefficient for race that conforms to the NKF-ASN Task Force Recommendations. Performed By: #### 4 6124 #### LAB [address] [address] Jack Mendoza M.D. [id number] HCO3 (Bld) [Moles/Vol] 30 mmol/L Normal 21-32 [facility] Comment on above: Order Comment: [facility] has implemented the eGFR calculation approach that does not have a coefficient for race that conforms to the NKF-ASN Task Force Recommendations. Performed By: #### 4 6124 #### LAB [address] [address] Jack Mendoza M.D. [id number] Potassium [Moles/Vol] 4.4 mmol/L Normal 3.5-5.1 [facility] Comment on above: Order Comment: [facility] has implemented the eGFR calculation approach that does not have a coefficient for race that conforms to the NKF-ASN Task Force Recommendations. Performed By: #### 4 6124 #### LAB [address] [address] Jack Mendoza M.D. [id number] Sodium [Moles/Vol] 137 mmol/L Normal 135-145 [facility] Comment on above: Order Comment: [facility] has implemented the eGFR calculation approach that does not have a coefficient for race that conforms to the NKF-ASN Task Force Recommendations. Performed By: #### 4 6124 ####[facility] LAB [address] [address] Jack Mendoza M.D. [id number] Urea nitrogen [Mass/Vol] 18 mg/dL Normal 8-25 [facility] Comment on above: Order Comment: [facility] has implemented the eGFR calculation approach that does not have a coefficient for race that conforms to the NKF-ASN Task Force Recommendations. Performed By: #### 4 6124 #### LAB [address] [place], [place] [address] Jack Mendoza M.D. [id number] Urea nitrogen/Creatinine [Mass ratio] 27.3 mg/mg High 10.0-20.0 [facility] Comment on above: Order Comment: [facility] has implemented the eGFR calculation approach that does not have a coefficient for race that conforms to the NKF-ASN Task Force Recommendations. Performed By: #### 4 6124 #### LAB [address] [place], [place] [address] Jack Mendoza M.D. [id number] Basic metabolic 2000 panelon 10-16-2024 Anion gap [Moles/Vol] 14 mmol/L 10 - 20 mmol/L [facility] Calcium [Mass/Vol] 8.7 mg/dL 8.4 - 10. 2 mg/dL [facility] Chloride [Moles/Vol] 97 mmol/L Low 98 - 10 8 mmol/L [facility] Creatinine [Mass/Vol] 0.66 mg/dL 0.50 - 1.30 mg/dL [facility] GFR/1.73 sq M.predicted CKD-EPI (S/P/Bld) [Vol rate/Area] 109 - PINF [facility] Comment on above: Estimated GFR was ca lculated using the 2020 CKD-EPI creatinine equation. Glucose [Mass/Vol] 156 mg/dL High 65 - 99 mg/dL [facility] HCO3 [Moles/Vol] 30 mmol/L 21 - 32 mmol/L [facility] Interpretation and review of laboratory results Abnormal [facility] Potassium [Moles/Vol] 4.4 mmol/L 3.5 - 5.1 mmol/L [facility] Sodium [Moles/Vol] 137 mmol/L 135 - 145 mmol/L [facility] Urea nitrogen [Mass/Vol] 18 mg/dL 8 - 25 mg/dL [facility] Urea nitrogen/Creatinine [Mass ratio] 27.3 mg/mg High 10.0 - 20.0 [facility] has implemented the eGFR calculation approach that does not have a coefficient for race that conforms to the NKF-ASN Task Force Recommendations. [facility] CBCon 10-16-2024 AUTO NRBC 0.0 % Normal [facility] Comment on above: Performed By: #### 4 5218 #### LAB [address] [address] Jack Mendoza M.D. [id number] AUTO NRBC ABS COUNT 0.00 K/mcL Normal 0.00-0.00 [facility] Comment on above: Performed By: #### 4 5218 #### LAB [address] [place] [address] Jack Mendoza M.D. [id number] Erythrocyte distribution width (RBC) [Ratio] 17.1 % High 11.6-14.8 [facility] Comment on above: Performed By: #### 4 5218 #### LAB [address] [address] Jack Mendoza M.D. [id number] Hematocrit (Bld) [Volume fraction] 36.6 % Low 41.0-53.0 [facility] Comment on above: Performed By: #### 4 5218 #### LAB [address] [place] [address] Jack Mendoza M.D. [id number] Hemoglobin (Bld) [Mass/Vol] 10.6 g/dL Low 13.5-17.5 [facility] Comment on above: Performed By: #### 4 5218 #### LAB [address] [place] [address] Jack Mendoza M.D. [id number] MCH (RBC) [Entitic mass] 20.2 pg Low 26.0-34.0 [facility] Comment on above: Performed By: #### 4 5218 #### LAB [address] [place] [address] Jack Mendoza M.D. [id number] MCV (RBC) [Entitic vol] 69.8 fL Low 80.0-100.0 [facility] Comment on above: Performed By: #### 4 5218 #### LAB [address] [place] [address] Jack Mendoza M.D. [id number] MEAN CORPUSCULAR HEMOGLOBIN CONC 29.0 g/dL Low 31.0-37.0 [facility] Comment on above: Performed By: #### 4 5218 #### LAB [address] [place] [address] Jack Mendoza M.D. [id number] Platelet mean volume (Bld) [Entitic vol] 10.2 fL Normal 9.4-12.4 [facility] Comment on above: Performed By: #### 4 5218 #### LAB [address] [place] [address] Jack Mendoza M.D. [id number] Platelets (Bld) [#/Vol] 116 10*3/uL Low 150-400 [facility] Comment on above: Performed By: #### 4 5218 #### LAB [address] [place] [address] Jack Mendoza M.D. [id number] RBC (Bld) [#/Vol] 5.24 10*6/uL Normal 4.50-5.90 [facility] Comment on above: Performed By: #### 4 5218 #### LAB [address] [place] [address] Jack Mendoza M.D. [id number] WBC (Bld) [#/Vol] 3.77 10*3/uL Low 4.50-11.00 [facility] Comment on above: Performed By: #### 4 5218 #### LAB [address] [place] [address] Jack Mendoza M.D. [id number] CBC panel Auto (Bld)on 10-16 Erythrocyte distribution width (RBC) [Entitic vol] 17.1 % High 11.6 - 14.8 % [facility] Hematocrit (Bld) [Volume fraction] 36.6 % Low 41.0 - 53.0 % [facility] Hemoglobin (Bld) [Mass/Vol] 10.6 g/dL Low 13.5 - 17.5 g/dL [facility] Interpretation and review of laboratory results Abnormal [facility] MCH (RBC) [Entitic mass] 20.2 pg Low 26.0 - 34.0 pg [facility] MCHC (RBC) [Mass/Vol] 29 g/dL Low 31.0 - 37.0 g/dL [facility] MCV (RBC) [Entitic vol] 69.8 fL Low 80.0 - 100.0 fL [facility] Nucleated RBC (Bld) [#/Vol] 0 10*3/uL [facility] Nucleated RBC/100 WBC (Bld) [Ratio] 0 % [facility] Platelet mean volume (Bld) [Entitic vol] 10.2 fL 9.4 - 12.4 fL [facility] Platelets (Bld) [#/Vol] 116 10*3/uL Low [facility] RBC (Bld) [#/Vol] 5.24 10*6/uL [facility] WBC (Bld) [#/Vol] 3.77 10*3/uL Low [facility] CONSULTon 10-16-2024 CONSULT Normal [facility] CT Thoracic and lumbar spine contraston 10-16-2024 1. There is moderate central [...] in the remaining thoracic and lumbar spine. [employer] Workstation ID: [id number] [facility] EXAMINATION: CT THORACIC AND LUMBAR SPINE RECONSTRUCTED HISTORY: ORDERING SYSTEM PROVIDED HISTORY: fall; upper and lower back pain, TECHNOLOGIST PROVIDED HISTORY: Injury/Trauma Reason for exam: upper and lower back pain, fall Encounter Type: Initial Mechanism of injury: fall ORDERING SYSTEM PROVIDED DIAGNOSIS CODES: J96.01 Acute respiratory failure with hypoxia ([facility]) J44.1 COPD exacerbation ([facility]) L03.90 Cellulitis, unspecified cellulitis site A41.9 Sepsis, due to unspecified organism, unspecified whether acute organ dysfunction present ([facility]) COMPARISON: CT pulmonary arteries 07/02/2024. CT abdomen [...] spine: Straightening of the lumbar spine. Stable [id number] anterior wedging of L2. Stable mild anterior wedging of L1. No new compression deformities. No subluxation scattered [id number] disc space narrowing. No central spinal canal poorly visualized secondary to intrinsic constraints of CT imaging. No high-grade spinal canal stenosis suspected. Please refer to dedicated imaging for details on the chest, abdomen, and pelvis. [facility] Jonathan Rodrigez MD - 09/23 EXAMINATION: CT THORACIC AND LUMBAR SPINE RECONSTRUCTED HISTORY: ORDERING SYSTEM PROVIDED HISTORY: fall; upper and lower back pain, TECHNOLOGIST PROVIDED HISTORY: Injury/Trauma Reason for exam: upper and lower back pain, fall Encounter Type: Initial Mechanism of injury: fall ORDERING SYSTEM PROVIDED DIAGNOSIS CODES: J96.01 Acute respiratory failure with hypoxia ([facility]) J44.1 COPD exacerbation ([facility]) L03.90 Cellulitis, unspecified cellulitis site A41.9 Sepsis, due to unspecified organism, unspecified whether acute organ dysfunction present ([facility]) COMPARISON: CT pulmonary arteries 07/02/2024. CT abdomen [...] spine: Straightening of the lumbar spine. Stable zhcldptk-so-oooqgg anterior wedging of L2. Stable mild anterior wedging of L1. No new compression deformities. No subluxation scattered iuko-[id number] disc space narrowing. No central spinal canal [...] and lumbar spine. EYY/mjr Workstation ID: [id number] [facility] CT Thoracic and lumbar spine WO contrastOrdered By: Jonathan Rodrigez on 10-16-2024 [facility] Work Phone: H AND Mike 10-16-2024 H AND P Normal [facility] MR THORACIC SPINE WITHOUT CO NTRASTon 10-16-2024 MR THORACIC SPINE WITHOUT CONTRAST Normal [facility] Comment on above: Order Comment: Injur [...] thoracic spinal cord. DMG/alt Workstation ID: [id number] theDrop EXAMINATION: MR THORACIC SPINE WITHOUT CONTRAST HISTORY: [...] organism, unspecified whether acute organ dysfunction present ([facility]) S22.060A Compression fracture of T7 vertebra, initial encounter ([facility]) COMPARISON: CT chest, abdomen and pelvis, 10/15/2024. [...] abnormal signal in the thoracic spinal cord. theDrop Enrique Carrasco MD - 10/16/2024 EXAMINATION: MR [...] organism, unspecified whether acute organ dysfunction present ([facility]) S22.060A Compression fracture of T7 vertebra, initial encounter ([facility]) COMPARISON: CT chest, abdomen and pelvis, 10/15/2024. [...] thoracic spinal cord. DMG/alt Workstation ID: [id number] [facility] Radiology Study observation (narrative) [facility] MR Thoracic spine WO contras tOrdered By: Enrique Carrasco on 10-16-2024 [facility] Work Phone: Vitamin D, Total, 25-OHon 25-hydroxyvitamin D [Mass/Vol] 11 ng/mL Low 20 - 100 ng/mL [facility] Interpretation and review of laboratory results Abnormal [facility] Vitamin D Expected V alues Deficiency: 0-10 Insufficiency: 10-20 Sufficient: 20-100 Toxicity: >100 [facility] BLOOD CULTURE AEROBIC/ANAERO BICon 10-15-2024 BLOOD CULTURE AEROBIC/ANAEROBIC BLOOD CULTURE No Growth after 5 days [facility] Comment on above: Performed By: #### 4 [id number] ####[facility] [address] [place], [place] [address] Jack Mendoza M.D. [id number] BLOOD CULTURE AEROBIC/ANAEROBIC BLOOD CULTURE No Growth after 5 days [facility] Comment on above: Performed By: #### 4 [id number] ####[facility] [address] [place], [place] [address] Jack Mendoza M.D. [id number] CBC Auto Differentialon 09-23 Basophils (Bld) [#/Vol] 0.02 10*3/uL [facility] Basophils/100 WBC (Bld) 0.4 % [facility] Eosinophils (Bld) [#/Vol] 0.03 10*3/uL [facility] Eosinophils/100 WBC (Bld) 0.6 % [facility] Erythrocyte distribution width (RBC) [Entitic vol] 16.8 % High 11.6 - 14.8 % [facility] Hematocrit (Bld) [Volume fraction] 36.9 % Low 41.0 - 53.0 % [facility] Hemoglobin (Bld) [Mass/Vol] 10.9 g/dL Low 13.5 - 17.5 g/dL [facility] Immature granulocytes (Bld) [#/Vol] 0.01 10*3/uL [facility] Immature granulocytes/100 WBC (Bld) 0.2 % [facility] Comment on above: The IG parameter is the percentage of metamyelocytes, myelocytes and promyelocytes. An immature granulocyte count (IG) of 1% or more suggests the possibility of infection, an IG count of 3% is very likely related to an infection. Lymphocytes (Bld) [#/Vol] 0.39 10*3/uL Low [facility] Lymphocytes/100 WBC (Bld) 7.8 % [facility] MCH (RBC) [Entitic mass] 20.8 pg Low 26.0 - 34.0 pg [facility] MCHC (RBC) [Mass/Vol] 29.5 g/dL Low 31.0 - 37.0 g/dL [facility] MCV (RBC) [Entitic vol] 70.6 fL Low 80.0 - 100.0 fL [facility] Monocytes (Bld) [#/Vol] 0.35 10*3/uL [facility] Monocytes/100 WBC (Bld) 7 % [facility] Neutrophils (Bld) [#/Vol] 4.18 10*3/uL [facility] Neutrophils/100 WBC (Bld) 84 % [facility] Comment on above: Peripheral smear rev iewed manually Nucleated RBC (Bld) [#/Vol] 0 10*3/uL [facility] Nucleated RBC/100 WBC (Bld) [Ratio] 0 % [facility] Platelet mean volume (Bld) [Entitic vol] 9.1 fL Low 9.4 - 12.4 fL [facility] Platelets (Bld) [#/Vol] 121 10*3/uL Low [facility] RBC (Bld) [#/Vol] 5.23 10*6/uL [facility] WBC (Bld) [#/Vol] 4.98 10*3/uL [facility] CBC WITH AUTO DIFFERENTIALon 10-15-2024 AUTO NRBC 0.0 % [facility] Comment on above: Performed By: #### L [id number] #### LAB [address] [place] [address] Jack Mendoza M.D. [id number] AUTO NRBC ABS COUNT 0.00 K/mcL Normal 0.00-0.00 [facility] Comment on above: Performed By: #### L [id number] #### LAB [address] [place] [address] Jack Mendoza M.D. [id number] BASOPHILS ABSOLUTE COUNT 0.02 K/mcL Normal 0.00-0.30 [facility] Comment on above: Performed By: #### L [id number] #### LAB [address] [place] [address] Jack Mendoza M.D. [id number] Basophils/100 WBC (Bld) 0.4 % [facility] Comment on above: Performed By: #### L [id number] #### LAB [address] [place] [address] Jack Mendoza M.D. [id number] Eosinophils (Bld) [#/Vol] 0.03 10*3/uL Normal 0.00-0.50 [facility] Comment on above: Performed By: #### L [id number] #### LAB [address] [place] [address] Jack Mendoza M.D. [id number] Eosinophils/100 WBC (Bld) 0.6 % [facility] Comment on above: Performed By: #### L [id number] #### LAB [address] [place] [address] Jack Mendoza M.D. [id number] Erythrocyte distribution width (RBC) [Ratio] 16.8 % High 11.6-14.8 [facility] Comment on above: Performed By: #### L [id number] #### LAB [address] [place] [address] Jack Mendoza M.D. [id number] Hematocrit (Bld) [Volume fraction] 36.9 % Low 41.0-53.0 [facility] Comment on above: Performed By: #### L [id number] #### LAB [address] [place] [address] Jack Mendoza M.D. [id number] Hemoglobin (Bld) [Mass/Vol] 10.9 g/dL Low 13.5-17.5 [facility] Comment on above: Performed By: #### L [id number] #### LAB [address] [place] [address] Jack Mendoza M.D. [id number] IG ABSOLUTE 0.01 K/mcL Normal 0.00-0.30 [facility] Comment on above: Performed By: #### L [id number] #### LAB [address] [place] [address] Jack Mendoza M.D. [id number] IG PERCENT 0.20 % Normal [facility] Comment on above: Result Comment: The IG parameter is the percentage of metamyelocytes, myelocytes and promyelocytes. An immature granulocyte count (IG) of 1% or more suggests the possibility of infection, an IG count of 3% is very likely related to an infection. Performed By: #### L [id number] #### LAB [address] [place] [address] Jack Mendoza M.D. [id number] Lymphocytes (Bld) [#/Vol] 0.39 10*3/uL Low 0.90-4.00 [facility] Comment on above: Performed By: #### L [id number] #### LAB [address] [place] [address] Jack Mendoza M.D. [id number] Lymphocytes/100 WBC (Bld) 7.8 % Normal [facility] Comment on above: Performed By: #### L [id number] #### LAB [address] [place] [address] Jack Mendoza M.D. [id number] MCH (RBC) [Entitic mass] 20.8 pg Low 26.0-34.0 [facility] Comment on above: Performed By: #### L [id number] #### LAB [address] [place] [address] Jack Mendoza M.D. [id number] MCV (RBC) [Entitic vol] 70.6 fL Low 80.0-100.0 [facility] Comment on above: Performed By: #### L [id number] #### LAB [address] [place] [address] Jack Mendoza M.D. [id number] MEAN CORPUSCULAR HEMOGLOBIN CONC 29.5 g/dL Low 31.0-37.0 [facility] Comment on above: Performed By: #### L [id number] #### LAB [address] [place] [address] Jack Mendoza M.D. [id number] Monocytes (Bld) [#/Vol] 0.35 10*3/uL Normal 0.30-0.90 [facility] Comment on above: Performed By: #### L [id number] #### LAB [address] [place] [address] Jack Mendoza M.D. [id number] Monocytes/100 WBC (Bld) 7.0 % Normal [facility] Comment on above: Performed By: #### L [id number] #### LAB [address] [place] [address] Jack Mendoza M.D. [id number] NEUTROPHILS ABSOLUTE COUNT 4.18 K/mcL Normal 1.70-7.00 [facility] Comment on above: Performed By: #### L [id number] #### LAB [address] [place] [address] Jack Mendoza M.D. [id number] Neutrophils/100 WBC (Bld) 84.0 % Normal [facility] Comment on above: Result Comment: Tiffany pheral smear reviewed manually Performed By: #### L [id number] #### LAB [address] [place] [address] Jack Mendoza M.D. [id number] Platelet mean volume (Bld) [Entitic vol] 9.1 fL Low 9.4-12.4 [facility] Comment on above: Performed By: #### L [id number] #### LAB [address] [place] [address] Jack Mendoza M.D. [id number] Platelets (Bld) [#/Vol] 121 10*3/uL Low 150-400 [facility] Comment on above: Performed By: #### L [id number] #### LAB [address] [place] [address] Jack Mendoza M.D. [id number] RBC (Bld) [#/Vol] 5.23 10*6/uL Normal 4.50-5.90 [facility] Comment on above: Performed By: #### L [id number] #### LAB [address] [place] [address] Jack Mendoza M.D. [id number] WBC (Bld) [#/Vol] 4.98 10*3/uL Normal 4.50-11.00 [facility] Comment on above: Performed By: #### L [id number] #### LAB [address] [place] [address] Jack Mendoza M.D. [id number] CBC and Diff Morphologyon Dacrocytes LM Ql (Bld) Few [facility] Ovalocytes LM Ql (Bld) Moderate [facility] Platelets LM Ql (Bld) Decreased Abnormal Normal [facility] Polychromasia LM Ql (Bld) Few [facility] RBC morphology finding Nom (Bld) See Comment [facility] Comment on above: RBC Indices confirme d with manual peripheral smear review. Stomatocytes LM Ql (Bld) Few [facility] Target cells LM Ql (Bld) Few [facility] COMPREHENSIVE METABOLIC PANE Ras 10-15-2024 Albumin [Mass/Vol] 3.5 g/dL Normal 3.2-5.2 [facility] Comment on above: Order Comment: [facility] has implemented the eGFR calculation approach that does not have a coefficient for race that conforms to the NKF-ASN Task Force Recommendations. Performed By: #### 4 [id number] #### LAB [address] [place] [address] Jack Mendoza M.D. [id number] ALP [Catalytic activity/Vol] 89 U/L Normal 40-150 [facility] Comment on above: Order Comment: [facility] has implemented the eGFR calculation approach that does not have a coefficient for race that conforms to the NKF-ASN Task Force Recommendations. Performed By: #### 4 [id number] #### LAB [address] [place] [address] Jack Mendoza M.D. [id number] ALT [Catalytic activity/Vol] 15 U/L [facility] Comment on above: Order Comment: [facility] has implemented the eGFR calculation approach that does not have a coefficient for race that conforms to the NKF-ASN Task Force Recommendations. Performed By: #### 4 6126 #### LAB [address] [place] [address] Jack Mendoza M.D. [id number] Anion gap [Moles/Vol] 14 mmol/L Normal 10-20 [facility] Comment on above: Order Comment: [facility] has implemented the eGFR calculation approach that does not have a coefficient for race that conforms to the NKF-ASN Task Force Recommendations. Performed By: #### 4 [id number] #### LAB [address] [place] [address] Jack Mendoza M.D. [id number] AST [Catalytic activity/Vol] 28 U/L [facility] Comment on above: Order Comment: [facility] has implemented the eGFR calculation approach that does not have a coefficient for race that conforms to the NKF-ASN Task Force Recommendations. Performed By: #### 4 [id number] #### LAB [address] [place], [place] [address] Jack Mendoza M.D. [id number] Bilirubin [Mass/Vol] 0.7 mg/dL Normal 0.0-1.3 [facility] Comment on above: Order Comment: [facility] has implemented the eGFR calculation approach that does not have a coefficient for race that conforms to the NKF-ASN Task Force Recommendations. Performed By: #### 4 [id number] #### LAB [address] [place] [address] Jack Mendoza M.D. [id number] Calcium [Mass/Vol] 8.8 mg/dL Normal 8.4-10.2 [facility] Comment on above: Order Comment: [facility] has implemented the eGFR calculation approach that does not have a coefficient for race that conforms to the NKF-ASN Task Force Recommendations. Performed By: #### 4 [id number] #### LAB [address] [place] [address] Jack Mendoza M.D. [id number] Chloride [Moles/Vol] 98 mmol/L Normal 98-108 [facility] Comment on above: Order Comment: [facility] has implemented the eGFR calculation approach that does not have a coefficient for race that conforms to the NKF-ASN Task Force Recommendations. Performed By: #### 4 6126 #### LAB [address] [place] [address] Jack Mendoza M.D. [id number] Creatinine [Mass/Vol] 0.69 mg/dL Normal 0.50-1.30 [facility] Comment on above: Order Comment: [facility] has implemented the eGFR calculation approach that does not have a coefficient for race that conforms to the NKF-ASN Task Force Recommendations. Performed By: #### 4 6126 #### LAB [address] [place] [address] Jack Mendoza M.D. [id number] EGFR 107 mL/min/1.73 m2 Normal >=60 [facility] Comment on above: Order Comment: [facility] has implemented the eGFR calculation approach that does not have a coefficient for race that conforms to the NKF-ASN Task Force Recommendations. Result Comment: Ashley mated GFR was calculated using the 2020 CKD-EPI creatinine equation. Performed By: #### 4 6126 #### LAB [address] [place] [address] Jack Mendoza M.D. [id number] Glucose [Mass/Vol] 139 mg/dL High 65-99 [facility] Comment on above: Order Comment: [facility] has implemented the eGFR calculation approach that does not have a coefficient for race that conforms to the NKF-ASN Task Force Recommendations. Performed By: #### 4 6126 #### LAB [address] [place] [address] Jack Mendoza M.D. [id number] HCO3 (Bld) [Moles/Vol] 33 mmol/L High 21-32 [facility] Comment on above: Order Comment: [facility] has implemented the eGFR calculation approach that does not have a coefficient for race that conforms to the NKF-ASN Task Force Recommendations. Performed By: #### 4 6126 #### LAB [address] [place] [address] Jack Mendoza M.D. [id number] Potassium [Moles/Vol] 4.1 mmol/L Normal 3.5-5.1 [facility] Comment on above: Order Comment: [facility] has implemented the eGFR calculation approach that does not have a coefficient for race that conforms to the NKF-ASN Task Force Recommendations. Performed By: #### 4 6126 #### LAB [address] [place] [address] Jack Mendoza M.D. [id number] Protein [Mass/Vol] 7.5 g/dL Normal 6.0-8.0 [facility] Comment on above: Order Comment: [facility] has implemented the eGFR calculation approach that does not have a coefficient for race that conforms to the NKF-ASN Task Force Recommendations. Performed By: #### 4 6126 #### LAB [address] [place] [address] Jack Mendoza M.D. [id number] Sodium [Moles/Vol] 141 mmol/L Normal 135-145 [facility] Comment on above: Order Comment: [facility] has implemented the eGFR calculation approach that does not have a coefficient for race that conforms to the NKF-ASN Task Force Recommendations. Performed By: #### 4 6126 #### LAB [address] [place] [address] Jack Mendoza M.D. [id number] Urea nitrogen [Mass/Vol] 16 mg/dL Normal 8-25 [facility] Comment on above: Order Comment: [facility] has implemented the eGFR calculation approach that does not have a coefficient for race that conforms to the NKF-ASN Task Force Recommendations. Performed By: #### 4 6126 #### LAB [address] [place] [address] Jack Mendoza M.D. [id number] Urea nitrogen/Creatinine [Mass ratio] 23.2 mg/mg High 10.0-20.0 [facility] Comment on above: Order Comment: [facility] has implemented the eGFR calculation approach that does not have a coefficient for race that conforms to the NKF-ASN Task Force Recommendations. Performed By: #### 4 6126 #### LAB [address] [place] [address] Jack Mendoza M.D. [id number] CONSULTon 10-15-2024 CONSULT Normal [facility] COVID-19/INFLUENZA A,B MOLEC ULARon 10-15-2024 SARS-CoV-2 (COVID-19) Ab IA Ql SARS-COV-2 (URSZULA) Not Detected INFLUENZA A (URSZULA) Not Detected INFLUENZA B (URSZULA) Not Detected Normal Not Detected [facility] Comment on above: Performed By: #### L [id number] ####[facility] [address] [place] [address] Jack Mendoza M.D. [id number] CT Abdomen and Pelvis W cont rast Charli 10-15-2024 1. Suboptimal pulmonary artery opacification, but no evidence of pulmonary emboli or other acute thoracic findings. 2. Cirrhotic liver morphology similar to prior with stigmata of portal venous hypertension. 3. No acute intraabdominal findings otherwise. 4. New fracture of T7. Workstation ID: [id number] theDrop EXAMINATION: CTA PULM ART AND CT ABD [...] stable. Moderate degenerative changes of the spine. theDrop Fransisco Camilo MD - 10/15/2024 EXAMINATION: CTA [...] New fracture of T7. Workstation ID: [id number] [facility] Radiology Study observation (narrative) [facility] CT Abdomen and Pelvis W cont rast IVOrdered By: Fransisco Camilo on 10-15-2024 [facility] Work Phone: CT THORACIC AND LUMBAR SPINE RECONSTRUCTEDon 10-15-2024 CT THORACIC AND LUMBAR SPINE RECONSTRUCTED Normal [facility] Comment on above: Order Comment: Injur y/Trauma or Illness?:Injury/TraumaHow long have you had these symptoms (acute/chronic)?:AcuteReason for exam?:upper and lower back pain, fallType of Exam?:InitialMechanism of injury?:fall CT Thoracic and lumbar spine WO contraston 10-15-2024 Radiology Study observation (narrative) [facility] CTA PULM ART AND CT ABD PELV IS WITH IV CONTRASTon 10-15-[address] ABD PELVIS WITH IV CONTRAST Normal [facility] Comment on above: Order Comment: Injur y/Trauma or Illness?:Illness/OtherHow long have you had these symptoms (acute/chronic)?:AcuteReason for exam?:suspected PE and abdominal pain, sobType of Exam?:InitialAdditional signs and symptoms?:fall, previous leg infection Comprehensive metabolic 2000 panelon 10-15-2024 Albumin [Mass/Vol] 3.5 g/dL 3.2 - 5.2 g/dL [facility] ALP [Catalytic activity/Vol] 89 U/L 40 - 150 U/L [facility] ALT [Catalytic activity/Vol] 15 U/L [facility] Anion gap [Moles/Vol] 14 mmol/L 10 - 20 mmol/L [facility] AST [Catalytic activity/Vol] 28 U/L [facility] Bilirubin [Mass/Vol] 0.7 mg/dL 0.0 - 1 .3 mg/dL [facility] Calcium [Mass/Vol] 8.8 mg/dL 8.4 - 10. 2 mg/dL [facility] Chloride [Moles/Vol] 98 mmol/L 98 - 10 8 mmol/L [facility] Creatinine [Mass/Vol] 0.69 mg/dL 0.50 - 1.30 mg/dL [facility] GFR/1.73 sq M.predicted CKD-EPI (S/P/Bld) [Vol rate/Area] 107 - PINF [facility] Comment on above: Estimated GFR was ca lculated using the 2020 CKD-EPI creatinine equation. Glucose [Mass/Vol] 139 mg/dL High 65 - 99 mg/dL [facility] HCO3 [Moles/Vol] 33 mmol/L High 21 - 32 mmol/L [facility] Interpretation and review of laboratory results Abnormal [facility] Potassium [Moles/Vol] 4.1 mmol/L 3.5 - 5.1 mmol/L [facility] Protein [Mass/Vol] 7.5 g/dL 6.0 - 8.0 g/dL [facility] Sodium [Moles/Vol] 141 mmol/L 135 - 145 mmol/L [facility] Urea nitrogen [Mass/Vol] 16 mg/dL 8 - 25 mg/dL [facility] Urea nitrogen/Creatinine [Mass ratio] 23.2 mg/mg High 10.0 - 20.0 [facility] has implemented the eGFR calculation approach that does not have a coefficient for race that conforms to the NKF-ASN Task Force Recommendations. [facility] Critical Careon 10-15-2024 Jose Lozano MD 11:52 PM Critical Care Performed by: Jose Lozano MD Authorized by: Jose Lozano MD Total critical care time: 50 minutes Critical care was time spent personally by me on the following activities: examination of patient, pulse oximetry and re-evaluation of patient's condition. [facility] D-DIMER, QUANTITATIVEon 09-23 D-DIMER QUANTITATIVE 13.56 mcg/mL FEU High 0.27-0.49 [facility] Comment on above: Order Comment: A [...] By: #### 4 [id number] #### LAB [address] [place], [place] [address] Jack Mendoza M.D. [id number] D-Dimer, QuantitativeOrdered By: Molly Costa on 10-15-2024 Fibrin D-dimer FEU (PPP) [Mass/Vol] 13.56 High [facility] Interpretation and review of laboratory results Abnormal [facility] A D-dimer concentrat ion of <0.5 micrograms per milliliter FEU is considered a low probability for pulmonary embolus (PE) and deep venous thrombosis (DVT). Results of this test should always be interpreted in conjunction with the patient's medical history,clinical presentation, and other findings. Clinical diagnosis should not be based on the results of the D-dimer alone. [facility] ED Prov Noteon 10-15-2024 ED Prov Note Normal [facility] EKGon 10-15-2024 [facility] Influenza virus A and B RNA and SARS-CoV-2 (COVID-19) N gene panel HERMAN+probe (Resp)Ordered By: Sara Barba on 10-15-2024 FLUAV RNA HERMAN+probe Ql (Unsp spec) Not detected Not Detected [facility] FLUBV RNA HERMAN+probe Ql (Unsp spec) Not detected Not Detected [facility] SARS-CoV-2 (COVID-19) RNA HERMAN+probe Ql (Resp) Not detected Not Detected [facility] MORPHOLOGYon 10-15-2024 OVAL SCAN Moderate Normal [facility] Comment on above: Performed By: #### L [id number] ####[facility] [address] [place], [place] [address] Jack Mendoza M.D. [id number] PLATELET ESTIMATE Decreased Abnormal Normal [facility] Comment on above: Performed By: #### L [id number] ####[facility] [address] [place] [address] Jack Mendoza M.D. [id number] POLY SCAN Few Normal [facility] Comment on above: Performed By: #### L [id number] ####[facility] [address] [place] [address] Jack Mendoza M.D. [id number] RBC MORPH SCAN See Comment Normal [facility] Comment on above: Result Comment: RBC Indices confirmed with manual peripheral smear review. Performed By: #### L [id number] ####[facility] [address] [place] [address] Jack Mendoza M.D. [id number] STOMATOCYTES Few Normal [facility] Comment on above: Performed By: #### L [id number] ####[facility] [address] [place] [id number] Jack Mendoza M.D. [id number] TARGET CELL SCAN Few Normal [facility] Comment on above: Performed By: #### L [id number] ####[facility] [address] [place] [address] Jack Mendoza M.D. [id number] TEAR DROP CELL SCAN Few Normal [facility] Comment on above: Performed By: #### L [id number] ####[facility] [address] [place] [address] Jack Mendoza M.D. [id number] MRSA DNA AMPLIFIED PROBEon 0 10-15-2024 MRSA DNA AMPLIFIED PROBE Negative Normal Not Detected, MRSA NEGATIVE [facility] Comment on above: Performed By: #### 4 [id number] ####[facility] [address] [place], [place] [address] Jack Mendoza M.D. [id number] MRSA DNA Amplified Probeon 0 10-15-2024 MRSA DNA HERMAN+probe Ql (Unsp spec) Negative Not Detected, MRSA NEGATIVE [facility] MRSA DNA HERMAN+probe Ql (Unsp spec)on 10-15-2024 Interpretation and review of laboratory results Normal [facility] NT PRO BNPon 10-15-2024 Natriuretic peptide B (Bld) [Mass/Vol] 163 pg/mL Normal 0-300 [facility] Comment on above: Order Comment: Pride Study Cut-offsRule In:< /= 50 Years >450 pg/mL51 Years - 75 Years >900 pg/mL76 Years - 99 Years >1800 pg/mLRule Out:All patients <300 pg/mL Performed By: #### 4 7395 #### LAB [address] [place], [place] [address] Jack Mendoza M.D. [id number] NT Pro BNPon 10-15-2024 Natriuretic peptide.B prohormone N-Terminal [Mass/Vol] 163 pg/mL 0 - 300 pg/mL [facility] Natriuretic peptide.B prohor randi N-Terminal [Mass/Vol]on 10-15-2024 Pride Study Cut-offs Rule In: < /= 50 Years >450 pg/mL 51 Years - 75 Years >900 pg/mL 76 Years - 99 Years >1800 pg/mL Rule Out: All patients <300 pg/mL [facility] No Panel Informationon 10-15 1. No acute fracture or dislocation of the pelvis or either tibia or fibula is seen. If there is concern for an occult injury of the pelvis, cross-sectional imaging is recommended. Otherwise, if pain persists, repeat radiographs are recommended in 7-10 days. [facility]/[employer] Workstation ID: [id number] [facility] EXAMINATION: XR PELVIS 1 VIEW (STANDARD); XR [...] repeat radiographs are recommended in 7-10 days. SK/manuelr Workstation ID: [id number] [facility] Interpretation and review of laboratory results Abnormal [facility] Interpretation and review of laboratory results Normal [facility] No Panel InformationOrdered By: Rodolfo Garcia on 10-15-2024 [facility] Work Phone: Obtain venous blood gases an d performon 10-15-2024 [facility] POC VENOUS BLOOD GAS PANEL-P ULMicheal - Shannon 10-15-2024 BASE EXCESS, VENOUS 9.7 High -2.0-2.0 [facility] Comment on above: Performed By: #### 4 8717 ####[facility] LAB [address] [place] [address] Jack Mendoza M.D. [id number] CALCIUM IONIZED 4.5 mg/dL Normal 4.5-5.3 [facility] Comment on above: Performed By: #### 4 8717 ####[facility] LAB [address] [place] [address] Jack Mendoza M.D. [id number] CARBOXYHEMOGLOBIN 2.7 % of total Hb High <=1.5 [facility] Comment on above: Result Comment: Refe rence Ranges:Suburban Non-smokers: <1.5%Smokers: 1.5-5.0%Heavy Smokers: 5.0-9.0% Performed By: #### 4 8717 ####[facility] LAB [address] [place] [address] Jack Mendoza M.D. [id number] Chloride [Moles/Vol] 96 mmol/L Low 98-108 [facility] Comment on above: Performed By: #### 4 8717 ####[facility] [address] [place] [address] Jack Mendoza M.D. [id number] FIO2 21 Normal [facility] Comment on above: Performed By: #### 4 8717 ####[facility] [address] [place] [address] Jack Mendoza M.D. [id number] Glucose [Mass/Vol] 134 mg/dL High 65-99 [facility] Comment on above: Performed By: #### 4 8717 ####[facility] LAB [address] [place] [address] Jack Mendoza M.D. [id number] HCO3 (Bld) [Moles/Vol] 37.3 mmol/L High 24.0-28.0 [facility] Comment on above: Performed By: #### 4 8717 ####[facility] LAB [address] [place] [address] Jack Mendoza M.D. [id number] Hematocrit (Bld) [Volume fraction] 35.1 % Low 41.0-53.0 [facility] Comment on above: Performed By: #### 4 8717 ####[facility] LAB [address] [place] [address] Jack Mendoza M.D. [id number] Hemoglobin (Bld) [Mass/Vol] 11.4 g/dL Low 13.5-17.5 [facility] Comment on above: Performed By: #### 4 8717 ####[facility] LAB [address] [place] [address] Jack Mendoza M.D. [id number] LACTIC ACID, WHOLE BLOOD 1.1 mmol/L Normal 0.6-2.0 [facility] Comment on above: Performed By: #### 4 8717 #### LAB [address] [place] [address] aJck Mendoza M.D. [id number] METHEMOGLOBIN < Normal 0.0-2.0 [facility] Comment on above: Performed By: #### 4 8717 ####[facility] [address] [place] [address] Jack Mendoza M.D. [id number] O2HB 55.3 % Normal No established reference range [facility] Comment on above: Performed By: #### 4 8717 ####[facility] LAB [address] [place] [address] Jack Mendoza M.D. [id number] Oxygen saturation in Blood 57.2 % Normal 40.0-70.0 [facility] Comment on above: Performed By: #### 4 8717 #### LAB [address] [place] [address] Jack Mendoza M.D. [id number] PCO2 VENOUS 65.4 mm Hg High 41.0-51.0 [facility] Comment on above: Performed By: #### 4 8717 #### LAB [address] [place] [address] Jack Mendoza M.D. [id number] PH VENOUS 7.36 Normal 7.32-7.42 [facility] Comment on above: Performed By: #### 4 8717 #### LAB [address] [place] [address] Jack Mendoza M.D. [id number] PO2 VENOUS 34 mm Hg Normal 25-40 [facility] Comment on above: Performed By: #### 4 8717 ####[facility] [address] [place] [address] Jack Mendoza M.D. [id number] Potassium [Moles/Vol] 3.9 mmol/L Normal 3.5-5.1 [facility] Comment on above: Performed By: #### 4 8717 #### LAB [address] [place] [address] Jack Mendoza M.D. [id number] Sodium [Moles/Vol] 142 mmol/L Normal 135-145 [facility] Comment on above: Performed By: #### 4 8717 #### LAB [address] [place] [address] Jack Mendoza M.D. [id number] SPECIMEN SOURCE RADIANCE Not specified Normal [facility] Comment on above: Performed By: #### 4 8717 #### LAB [address] [place] [address] Jack Mendoza M.D. [id number] POC Venous Blood Gas Panel-P [facility] 10-15-2024 Base excess Calc (BldV) [Moles/Vol] 9.7 mmol/L High -2.0 - 2.0 [facility] Calcium.ionized [Mass/Vol] 4.5 mg/dL 4.5 - 5.3 mg/dL [facility] Carboxyhemoglobin (BldA) [Mass fraction] 2.7 High [facility] Comment on above: Reference Ranges: [facility] Non-smokers: <1.5% Smokers: 1.5-5.0% Heavy Smokers: 5.0-9.0% CO2 (BldV) [Partial pressure] 65.4 mm[Hg] High [facility] Glucose post fast [Mass/Vol] 134 mg/dL High 65 - 99 mg/dL [facility] Hematocrit (BldA) [Volume fraction] 35.1 % Low 41.0 - 53.0 % [facility] Inhaled oxygen concentration 21 % [facility] Interpretation and review of laboratory results Abnormal [facility] Lactate [Moles/Vol] 1.1 mmol/L 0.6 - 2. 0 mmol/L [facility] Methemoglobin (BldA) [Mass fraction] % 0.0 - 2.0 % [facility] Oxygen (BldV) [Partial pressure] 34 mm[Hg] [facility] Oxygen saturation in Venous blood 57.2 % 40.0 - 70.0 % [facility] Oxyhemoglobin (BldA) [Mass fraction] 55.3 % No established reference range [facility] pH (BldV) 7.36 [pH] 7.32 - 7.42 [facility] Specimen source Nom (Unsp spec) Not specified [facility] TROPONINon 10-15-2024 TROPONIN T DELTA CHANGE INTERPRETATION Possible acute cardiac injury. Consider additional troponin testing and correlate with clinical factors. Normal [facility] Comment on above: Performed By: #### 4 6608 ####[facility] LAB [address] [place], [place] [address] Jack Mendoza M.D. [id number] TROPONIN T DELTA DIFFERENCE 10 ng/L Off scale high < = -/+ 7 change [facility] Comment on above: Performed By: #### 4 6608 ####[facility] [address] [place], [place] [address] Jack Mendoza M.D. [id number] TROPONIN T NG/L 20 ng/L Normal <=22 [facility] Comment on above: Performed By: #### 4 6608 ####[facility] [address] [place], [place] [address] Jack Mendoza M.D. [id number] BASELINE TROPONIN T NG/L 10 ng/L Normal <=22 [facility] Comment on above: Performed By: #### 4 6608 #### LAB [address] [place], [place] [address] Jack Mendoza M.D. [id number] TROPONIN T INTERPRETATION Normal Normal [facility] Comment on above: Performed By: #### 4 6608 #### LAB [address] [place] [address] Jack Mendoza M.D. [id number] Troponin x 2 (Now and Repeat in 3 hours)Ordered By: Joslyn Page on 10-15-2024 [facility] Troponin T 10 ng/L Critically high < = -/+ 7 change [facility] Interp Troponin T Delta Change Possible acute cardiac injury. Consider additional troponin testing and correlate with clinical factors. [facility] Interpretation and review of laboratory results Abnormal [facility] Troponin T.cardiac High sensitivity method [Mass/Vol] 20 ng/L NINF - 22 ng/L [facility] Troponin x 2 (Now and Repeat in 3 hours)on 10-15-2024 Troponin T 10 ng/L NINF - 22 ng/L [facility] Troponin T Interpretation Normal [facility] VITAMIN D, TOTAL, 25-OHon VITAMIN D 25-HYDROXY 11 ng/mL Low 20-100 [facility] Comment on above: Order Comment: Vitam in D Expected ValuesDeficiency: 0-10Insufficiency: 10-20Sufficient: 20-100Toxicity: >100 Performed By: #### 4 6678 #### LAB [address] [place] [id number] Jack Mendoza M.D. [id number] XR CHEST PA/APon 10-15-2024 XR CHEST PA/AP Normal [facility] Comment on above: Order Comment: Injur y/Trauma or Illness?:Illness/OtherHow long have you had these symptoms (acute/chronic)?:AcuteReason for exam?:shortness of breathHistory of cancer?:uSurgeries, chemotherapy, or radiation?:uType of Exam?:InitialAdditional signs and symptoms?:chest pain XR Chest PA and Abdomen APon 10-15-2024 No acute cardiopulmonary process. Workstation ID: [id number] [employer] EXAMINATION: XR CHEST PA/AP HISTORY: ORDERING SYSTEM [...] normal in size. Bony thorax is unremarkable. [employer] Mariaelena Thompson MD - 10/15/2024 EXAMINATION: XR [...] No acute cardiopulmonary process. Workstation ID: [id number] [facility] Radiology Study observation (narrative) [facility] XR Chest PA and Abdomen APOr dered By: Mariaelena Thompson on 10-15-2024 [facility] Work Phone: XR PELVIS 1 VIEW (STANDARD)o n 10-15-2024 XR PELVIS 1 VIEW (STANDARD) Normal [facility] Comment on above: Order Comment: Injur y/Trauma or Illness?:Injury/TraumaHow long have you had these symptoms (acute/chronic)?:AcuteReason for exam?:fallHistory of cancer?:uSurgeries, chemotherapy, or radiation?:uType of Exam?:InitialMechanism of injury?:fall XR Pelvis 1 or 2 [facility] Radiology Study observation (narrative) [facility] XR TIBIA FIBULA LEFT 2 VIEWS on 10-15-2024 XR TIBIA FIBULA LEFT 2 VIEWS [facility] Comment on above: Order Comment: Injur y/Trauma or Illness?:Injury/TraumaHow long have you had these symptoms (acute/chronic)?:AcuteReason for exam?:fallHistory of cancer?:uSurgeries, chemotherapy, or radiation?:uType of Exam?:InitialMechanism of injury?:cellulitus,weeping XR TIBIA FIBULA RIGHT 2 VIEW Son 10-15-2024 XR TIBIA FIBULA RIGHT 2 VIEWS [facility] Comment on above: Order Comment: Injur y/Trauma or Illness?:Injury/TraumaHow long have you had these symptoms (acute/chronic)?:AcuteReason for exam?:fallHistory of cancer?:uSurgeries, chemotherapy, or radiation?:uType of Exam?:InitialMechanism of injury?:cellulitus,weeping XR Tibia and Fibula - left 2 [facility] 10-15-2024 Radiology Study observation (narrative) [facility] XR Tibia and Fibula - right 2 [facility] 10-15-2024 Radiology Study observation (narrative) [facility] BODY FLUID AEROBIC CULTUREon 07-05-2024 BODY FLUID AEROBIC CULTURE AEROBIC CULTURE No Growth after 5 days GRAM STAIN RESULT Few WBC No Organisms Seen Normal [facility] Comment on above: Performed By: #### 4 4016 ####[facility] [address] [place], [place] [address] Venancio Richardson M.D. [id number] Disch Summon 07-05-2024 Disch Summ Normal [facility] SYNOVIAL FLUID ANALYSISon APPEARANCE, SNF Cloudy Abnormal Clear [facility] Comment on above: Performed By: #### 7 1429 #### LAB [address] [place], [place] [address] Jack Mendoza M.D. [id number] CALCIUM PYROPHOSPHATE, SNF Negative Normal Negative [facility] Comment on above: Performed By: #### 4 1998 #### LAB [address] [place] [address] Jack Mendoza M.D. [id number] COLOR, SNF Light Red Abnormal [facility] Comment on above: Performed By: #### 4 5230 #### LAB [address] [place] [address] Jack Mendoza M.D. [id number] FIBRIN CLOT, SNF Absent Normal Absent [facility] Comment on above: Performed By: #### 4 5230 #### LAB [address] [place] [address] Jack Mendoza M.D. [id number] Lymphocytes/100 WBC (Bld) 0 % Normal 00 [facility] Comment on above: Performed By: #### 4 5230 #### LAB [address] [place] [address] Jack Mendoza M.D. [id number] Monocytes/100 WBC (Bld) 0 % Normal 00 [facility] Comment on above: Performed By: #### 4 5230 #### LAB [address] [place] [address] Jack Mendoza M.D. [id number] Neutrophils/100 WBC (Bld) 100 % High 0-25 [facility] Comment on above: Performed By: #### 4 5230 #### LAB [address] [place] [address] Jack Mendoza M.D. [id number] RBC, SNF [address] /mcL High 00 [facility] Comment on above: Performed By: #### 4 5230 #### LAB [address] [place] [address] Jack Mendoza M.D. [id number] URATES, SNF Negative Normal Negative [facility] Comment on above: Performed By: #### 4 5230 #### LAB [address] [place] [address] Jack Mendoza M.D. [id number] WBC/NUC CELLS, SNF [address] /mcL High 0-200 [facility] Comment on above: Result Comment: WBC/ Nuc cell count includes mesothelial and other non-WBC nucleated cells as reflected in the differential. Performed By: #### 4 5230 ####[facility] LAB [address] [place], [place] [address] Jack Mendoza M.D. [id number] Synovial Fluid AnalysisOrder ed By: Sunitha Whitney on 07-05-2024 Appearance (Syn fld) Cloudy Abnormal Clear [facility] Color (Syn fld) Light Red Abnormal [facility] Fibrin Clot, [facility] Absent [facility]ent [facility] Interpretation and review of laboratory results Abnormal [facility] Lymphocytes/100 WBC Auto (Syn fld) 0 % 0 - 0 % [facility] Monocytes/100 WBC (Syn fld) 0 % 0 - 0 % [facility] Neutrophils/100 WBC (Syn fld) 100 % High 0 - 25 % [facility] Nucleated cells Manual cnt (Syn fld) [#/Vol] [id number] High [facility] Comment on above: WBC/Nuc cell count i ncludes mesothelial and other non-WBC nucleated cells as reflected in the differential. Pyrophosphate crystals LM Ql (Syn fld) Negative Negative [facility] RBC Auto (Syn fld) [#/Vol] 25048 High [facility] Urate crystals LM Ql (Syn fld) Negative Negative [facility] Blastomyces Antibodyon 07-04 B. dermatitidis Ab CF Qn (S) Negative Negative [facility] Comment on above: A single negative re sult does not exclude the diagnosis of blastomycosis. Repeat testing on a new sample in 7-14 days if clinically indicated. Test Performed by: [address] [address] [employer] Handler 2[employer] Shift: Ty Ordoñez Ph.D.; CLIA# [id number] [facility] Fungitell, Serumon Fungitell Negative Negative [facility] Comment on above: No (1, 3) Beta-D-Glu can detected. This assay does not detect certain fungi, including Cryptococcus species, which produce very low levels of (1, 3) Rrnx-A-Asvyfd (BDG) and the Mucorales (e.g., Lichthemia, Mucor and Rhizopus), which are not known to produce BDG. Additionally, the yeast phase of Blastomyces dermatitidis produces little BDG and may not be detected by this assay. ADDITIONAL INFORMATION This assay was performed using the FDA-cleared Fungitell Assay ([place], [place], [place]), a kinetic YOJANA based on modification of the Limulus Amebocyte Lysate pathway. Test Performed by: [facility] [address] [place] [address] [employer] Handler 2Nd Shift: Ty Ordoñez Ph.D.; CLIA# [id number] Fungitell Assay 39 pg/mL <60 pg/mL [facility] US Abdomen limitedon 024 Cirrhosis with splenomegaly. No ascites. No cholelithiasis or biliary ductal dilatation. No right hydronephrosis or nephrolithiasis. [employer] Workstation ID: [id number] [facility] RIS EXAMINATION: US ABDOMEN LIMITED STUDY HISTORY: ORDERING [...] unspecified hypotension type F14.10 Nondependent cocaine abuse ([facility]) D72.829 Leukocytosis, unspecified type F19.10 Polysubstance abuse (HCC) J41.1 Mucopurulent chronic bronchitis (HCC) E11.9 Type 2 diabetes mellitus without complication, without long-term current use of insulin (HCC) E66.01 Morbid obesity with BMI of 40.0-44.9, adult (HCC) Z68.41 Morbid obesity with BMI of 40.0-44.9, adult (HCC) I48.91 Atrial fibrillation with rapid ventricular response (HCC) F11.20 Uncomplicated opioid dependence (HCC) J96.11 Chronic [...] measures 22.4 x 7.6 x 8.3 cm. [facility] Khadar Beth soraya, DO - 07/04/2024 EXAMINATION: US ABDOMEN LIMITED [...] heart failure with preserved ejection fraction (HFpEF) ([facility]) I50.32 Chronic diastolic congestive heart failure (HCC) D61.818 Pancytopenia ([facility]) L03.115 Cellulitis of right lower extremity L08.9 Foot infection E27.40 Adrenal insufficiency (HCC) T84.53XD Infection associated with internal right knee prosthesis, subsequent encounter L97.922 Skin ulcer of left lower leg with fat layer exposed ([facility]) L97.519 Plantar ulcer of right foot, unspecified ulcer stage ([facility]) G89.4 Chronic pain syndrome I87.2 Venous stasis dermatitis of both lower extremities D69.6 Thrombocytopenia ([facility]) T14.8XXA Hematoma K70.31 Alcoholic cirrhosis of liver with ascites ([facility]) R90.[address] M89.8X5 Pain of left femur M25.552 Acute pain of left hip I95.9 Hypotension, unspecified hypotension type F14.10 Nondependent cocaine abuse ([facility]) D72.829 Leukocytosis, unspecified type F19.10 Polysubstance abuse ([facility]) J41.1 Mucopurulent chronic bronchitis ([facility]) E11.9 Type 2 diabetes mellitus without complication, without long-term current use of insulin ([facility]) E66.01 Morbid obesity with BMI of 40.0-44.9, adult ([facility]) Z68.41 Morbid obesity with BMI of 40.0-44.9, adult ([facility]) I48.91 Atrial fibrillation with rapid ventricular response ([facility]) F11.20 Uncomplicated opioid dependence ([facility]) J96.11 Chronic respiratory failure with hypoxia and hypercapnia ([facility]) J96.12 Chronic respiratory failure with hypoxia and hypercapnia ([facility]) I10 Essential hypertension 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 No right hydronephrosis or nephrolithiasis. /[facility] Workstation ID: [id number] [facility] Radiology Study observation (narrative) [facility] US Abdomen limitedOrdered By : Khadar Beth on 07-04-2024 [facility] Work Phone: CBC panel Auto (Bld)on 07-03 Erythrocyte distribution width (RBC) [Entitic vol] 15.3 % High 11.6 - 14.8 % [facility] Hematocrit (Bld) [Volume fraction] 35 % Low 41.0 - 53.0 % [facility] Hemoglobin (Bld) [Mass/Vol] 10.7 g/dL Low 13.5 - 17.5 g/dL [facility] Interpretation and review of laboratory results Abnormal [facility] MCH (RBC) [Entitic mass] 22 pg Low 26.0 - 34.0 pg [facility] MCHC (RBC) [Mass/Vol] 30.6 g/dL Low 31.0 - 37.0 g/dL [facility] MCV (RBC) [Entitic vol] 72 fL Low 80.0 - 100.0 fL [facility] Nucleated RBC (Bld) [#/Vol] 0 10*3/uL [facility] Nucleated RBC/100 WBC (Bld) [Ratio] 0 % [facility] Platelet mean volume (Bld) [Entitic vol] 10 fL 9.4 - 12.4 fL [facility] Platelets (Bld) [#/Vol] 135 10*3/uL Low [facility] RBC (Bld) [#/Vol] 4.86 10*6/uL [facility] WBC (Bld) [#/Vol] 4.66 10*3/uL [facility] Comprehensive metabolic 2000 panelOrdered By: Krystian Nicole on 07-03-2024 Albumin [Mass/Vol] 3.6 g/dL 3.2 - 5.2 g/dL [facility] ALP [Catalytic activity/Vol] 75 U/L 40 - 150 U/L [facility] ALT [Catalytic activity/Vol] 9 U/L [facility] Anion gap [Moles/Vol] 15 mmol/L 10 - 20 mmol/L [facility] AST [Catalytic activity/Vol] 22 U/L [facility] Bilirubin [Mass/Vol] 0.5 mg/dL 0.0 - 1 .3 mg/dL [facility] Calcium [Mass/Vol] 8.4 mg/dL 8.4 - 10. 2 mg/dL [facility] Chloride [Moles/Vol] 96 mmol/L Low 98 - 10 8 mmol/L [facility] Creatinine [Mass/Vol] 0.68 mg/dL 0.50 - 1.30 mg/dL [facility] GFR/1.73 sq M.predicted CKD-EPI (S/P/Bld) [Vol rate/Area] 108 - PINF [facility] Comment on above: Estimated GFR was ca lculated using the 2020 CKD-EPI creatinine equation. Glucose [Mass/Vol] 103 mg/dL High 65 - 99 mg/dL [facility] HCO3 [Moles/Vol] 30 mmol/L 21 - 32 mmol/L [facility] Interpretation and review of laboratory results Abnormal [facility] Potassium [Moles/Vol] 3.6 mmol/L 3.5 - 5.1 mmol/L [facility] Protein [Mass/Vol] 7.9 g/dL 6.0 - 8.0 g/dL [facility] Sodium [Moles/Vol] 137 mmol/L 135 - 145 mmol/L [facility] Urea nitrogen [Mass/Vol] 16 mg/dL 8 - 25 mg/dL [facility] Urea nitrogen/Creatinine [Mass ratio] 23.5 mg/mg High 10.0 - 20.0 [facility] has implemented the eGFR calculation approach that does not have a coefficient for race that conforms to the NKF-ASN Task Force Recommendations. [facility] ECG 12 Lead (Now)on 07-03-20 24 Atrial Rate 75 BPM [facility] P Bison 78 degrees [facility] P-R Interval 158 ms [facility] Q-T Interval 394 ms [facility] QRS Duration 90 ms [facility] QTC Calculation (Bezet) 439 ms [facility] R Bison 60 degrees [facility] T Bison 57 degrees [facility] Ventricular Rate [address] [facility] th Normal sinus rhythm Normal ECG ECG Cart Interpretation see physician note for interpretation. Confirmed by Yanet Paige ([id number]) on 07/03/2024 7:03:07 PM MUSE [facility] Glucose (Bld) [Mass/Vol]on 09-02-2023 Glucose [Mass/Vol] 154 mg/dL High 65 - 99 mg/dL [facility] Interpretation and review of laboratory results Abnormal [facility] CBC Auto Differentialon 06-22 Basophils (Bld) [#/Vol] 0.01 10*3/uL [facility] Basophils/100 WBC (Bld) 0.2 % [facility] Eosinophils (Bld) [#/Vol] 0.02 10*3/uL [facility] Eosinophils/100 WBC (Bld) 0.5 % [facility] Erythrocyte distribution width (RBC) [Entitic vol] 15.4 % High 11.6 - 14.8 % [facility] Hematocrit (Bld) [Volume fraction] 36.1 % Low 41.0 - 53.0 % [facility] Hemoglobin (Bld) [Mass/Vol] 11.1 g/dL Low 13.5 - 17.5 g/dL [facility] Immature granulocytes (Bld) [#/Vol] 0.01 10*3/uL [facility] Immature granulocytes/100 WBC (Bld) 0.2 % [facility] Comment on above: The IG parameter is the percentage of metamyelocytes, myelocytes and promyelocytes. An immature granulocyte count (IG) of 1% or more suggests the possibility of infection, an IG count of 3% is very likely related to an infection. Interpretation and review of laboratory results Abnormal [facility] Lymphocytes (Bld) [#/Vol] 0.54 10*3/uL Low [facility] Lymphocytes/100 WBC (Bld) 12.2 % [facility] MCH (RBC) [Entitic mass] 22.4 pg Low 26.0 - 34.0 pg [facility] MCHC (RBC) [Mass/Vol] 30.7 g/dL Low 31.0 - 37.0 g/dL [facility] MCV (RBC) [Entitic vol] 72.9 fL Low 80.0 - 100.0 fL [facility] Monocytes (Bld) [#/Vol] 0.26 10*3/uL Low [facility] Monocytes/100 WBC (Bld) 5.9 % [facility] Neutrophils (Bld) [#/Vol] 3.59 10*3/uL [facility] Neutrophils/100 WBC (Bld) 81 % [facility] Nucleated RBC (Bld) [#/Vol] 0 10*3/uL [facility] Nucleated RBC/100 WBC (Bld) [Ratio] 0 % [facility] Platelet mean volume (Bld) [Entitic vol] 10 fL 9.4 - 12.4 fL [facility] Platelets (Bld) [#/Vol] 131 10*3/uL Low [facility] RBC (Bld) [#/Vol] 4.95 10*6/uL [facility] WBC (Bld) [#/Vol] 4.43 10*3/uL Low [facility] CRP, Inflammationon 07-02-20 24 CRP [Mass/Vol] 36.2 mg/L High 0.0 - 10.0 mg/L [facility] CT Pulmonary arteries for pu lmonary [...] are seen. Old rib fractures are noted. [facility] Rangel Garcia MD - 07/02/2024 EXAMINATION: CT [...] infection is not excluded. Workstation ID: [id number] [facility] [facility] Rad[facility] Study observation (narrative) [facility] CT Pulmonary arteries for pu lmonary embolusOrdered By: Rangel Garcia on 07-02-2024 [facility] Work Phone: Comprehensive metabolic 2000 panelOrdered By: Caty Sanchez on 07-02-2024 Albumin [Mass/Vol] 3.7 g/dL 3.2 - 5.2 g/dL [facility] ALP [Catalytic activity/Vol] 70 U/L 40 - 150 U/L [facility] ALT [Catalytic activity/Vol] 13 U/L [facility] Anion gap [Moles/Vol] 15 mmol/L 10 - 20 mmol/L [facility] AST [Catalytic activity/Vol] 25 U/L [facility] Bilirubin [Mass/Vol] 0.8 mg/dL 0.0 - 1 .3 mg/dL [facility] Calcium [Mass/Vol] 8.8 mg/dL 8.4 - 10. 2 mg/dL [facility] Chloride [Moles/Vol] 99 mmol/L 98 - 10 8 mmol/L [facility] Creatinine [Mass/Vol] 0.61 mg/dL 0.50 - 1.30 mg/dL [facility] GFR/1.73 sq M.predicted CKD-EPI (S/P/Bld) [Vol rate/Area] 112 - PINF [facility] Comment on above: Estimated GFR was ca lculated using the 2020 CKD-EPI creatinine equation. Glucose [Mass/Vol] 132 mg/dL High 65 - 99 mg/dL [facility] HCO3 [Moles/Vol] 27 mmol/L 21 - 32 mmol/L [facility] Interpretation and review of laboratory results Abnormal [facility] Potassium [Moles/Vol] 3.8 mmol/L 3.5 - 5.1 mmol/L [facility] Protein [Mass/Vol] 8.1 g/dL High 6.0 - 8.0 g/dL [facility] Sodium [Moles/Vol] 137 mmol/L 135 - 145 mmol/L [facility] Urea nitrogen [Mass/Vol] 12 mg/dL 8 - 25 mg/dL [facility] Urea nitrogen/Creatinine [Mass ratio] 19.7 mg/mg 10.0 - 20.0 [facility] has implemented the eGFR calculation approach that does not have a coefficient for race that conforms to the NKF-ASN Task Force Recommendations. [facility] D-Dimer, QuantitativeOrdered By: Sara Barba on 07-02-2024 Fibrin D-dimer FEU (PPP) [Mass/Vol] 14.75 [facility] Interpretation and review of laboratory results Abnormal [facility] A D-dimer concentrat ion of <0.5 micrograms per milliliter FEU is considered a low probability for pulmonary embolus (PE) and deep venous thrombosis (DVT). Results of this test should always be interpreted in conjunction with the patient's medical history,clinical presentation, and other findings. Clinical diagnosis should not be based on the results of the D-dimer alone. [facility] EKGon 07-02-2024 [facility] ESR Westergren method (Bld) [Velocity]on 07-02-2024 ESR (Bld) [Velocity] 101 mm/h [facility] Interpretation and review of laboratory results Abnormal [facility] Gold Topon 07-02-2024 Extra Tube Hold for add-ons. [facility] Comment on above: Auto resulted. [facility] Combs Topon 07-02-2024 Extra Tube Hold for add-ons. [facility] Comment on above: Auto resulted. [facility] NT Pro BNPon 07-02-2024 Natriuretic peptide.B prohormone N-Terminal [Mass/Vol] 552 pg/mL High 0 - 300 pg/mL [facility] Natriuretic peptide.B prohor randi N-Terminal [Mass/Vol]on 07-02-2024 [facility] Cut-offs Rule In: < /= 50 Years >450 pg/mL 51 Years - 75 Years >900 pg/mL 76 Years - 99 Years >1800 pg/mL Rule Out: All patients <300 pg/mL [facility] No Panel Informationon 07-02 Interpretation and review of laboratory results Abnormal [facility] Troponin x 2 (Now and Repeat in 3 hours)Ordered By: Sb Neal on 07-02-2024 Troponin T ng/L NINF - 22 ng/L [facility] Troponin T Interpretation Normal [facility] Ultrasound Duplex Venous Leg s BILATERALon 07-02-2024 Patient Info Name: CARMEN GILMAN Age: 58 years : 1965 Gender: Male Exam Date: 07/02/2024 3:32 PM Patient Status: Emergency Stallion Keeper: Margy Bradley RVT Referring Physician: INDERJIT Jaimes; Indications R22.43 - Localized swelling, mass and lump, lower limb, bilateral Procedure Description 48557 Duplex examination using B-mode, color and spectral [...] Date: 07/02/2024 3:32 PM Patient Status: Emergency Stallion Keeper: Margy Bradley RVT Referring Physician: [id number] Clark; Indications R22.43 - Localized swelling, mass and lump, lower limb, bilateral Procedure Description 79203 Duplex examination using B-mode, color and spectral [...] Small Saphenous: - Small Saphenous: - - [facility] Urinalysison 07-02-2024 Bacteria Auto Ql (U) None Seen None Se en /hpf [facility] Bilirubin Ql (U) Negative Negative [facility] th Clarity Refractometry automated (U) Clear Clear [facility] Color (U) Colorless Colorless, Yellow [facility] Glucose Auto test strip (U) [Mass/Vol] Negative Negative mg/dL [facility] Hemoglobin Auto test strip Ql (U) Small Abnormal Negative [facility] Interpretation and review of laboratory results Abnormal [facility] Ketones (U) [Mass/Vol] Negative Negative mg/dL [facility] Leukocyte esterase Auto test strip Ql (U) Negative Negative [facility] Mucus Auto (Urine sed) [#/Area] Rare None Seen, Rare /lpf [facility] Nitrite Auto test strip Ql (U) Negative Negative [facility] pH (U) 6.5 [pH] 5.0 - 7.0 [facility] Protein (U) [Mass/Vol] Negative Negative mg/dL [facility] RBC Auto (Urine sed) [#/Area] 2 [facility] Specific gravity (U) [Rel density] 1.006 1.005 - 1.025 [facility] Urobilinogen (U) [Mass/Vol] mg/dL NINF - 2.0 mg/dL [facility] Microscopic examinat ion is performed on all urinalysis samples and only positive findings are reported. The test for blood on the chemical analytic portion of urinalysis may also be positive due to hemoglobinuria and myoglobinuria and if red blood cells are present they are quantified by microscopic examination. [facility] XR Chest PA and Abdomen APon 07-02-2024 No active disease. Workstation ID: [id number] [employer] EXAMINATION: XR CHEST PA/AP 07/02/2024 3:21 pm [...] lungs and pleural spaces are clear. GE RIS Libia Sidhu MD - 07/02/2024 EXAMINATION: XR CHEST PA/AP [...] IMPRESSION: No active disease. Workstation ID: [id number] [facility] Radiology Study observation (narrative) [facility] XR Chest PA and Abdomen APOr dered By: Libia Sidhu on 07-02-2024 [facility] Work Phone: XR Knee - right [...] gas bubbles are seen. Workstation ID: [id number] [employer] EXAMINATION: XR KNEE RIGHT 2 VIEWS (STANDARD) [...] 10/07/2023 and right tibia/fibula radiographs of 07/02/2024. [facility] Eloy Delong MD - 07/02/2024 EXAMINATION: XR KNEE RIGHT [...] gas bubbles are seen. Workstation ID: [id number] [facility] Radiology Study observation (narrative) [facility] XR Knee - right 2 ViewsOrder ed By: Eloy Arevalo on 07-02-2024 [facility] Work Phone: XR Tibia and Fibula - left 2 Viewson 07-02-2024 Extensive subcutaneous edema and soft tissue swelling without radiographic evidence of osteomyelitis. If there is high clinical concern, recommend MRI which is more sensitive. Workstation ID: [id number] [facility] EXAMINATION: XR TIBIA FIBULA LEFT 2 VIEWS [...] Extensive subcutaneous edema and soft tissue swelling. [employer] Edwin Juan, - 07/02/2024 EXAMINATION: XR TIBIA [...] which is more sensitive. Workstation ID: [id number] [facility] Radiology Study observation (narrative) [facility] XR Tibia and Fibula - right 2 Viewson 07-02-2024 Diffuse soft tissue swelling and edema without radiographic evidence of osteomyelitis. If there is high clinical concern, recommend MRI. Right total knee arthroplasty with findings suspicious for component loosening. Consider obtaining dedicated right knee radiographs as clinically warranted. Workstation ID: [id number] [employer] EXAMINATION: XR TIBIA FIBULA RIGHT 2 VIEWS [...] demineralized. Diffuse soft tissue edema and swelling. [employer] Edwin Juan DO - 07/02/2024 EXAMINATION: XR TIBIA FIBULA [...] radiographs as clinically warranted. Workstation ID: [id number] [facility] Radiology Study observation (narrative) [facility] XR Tibia and Fibula - right 2 ViewsOrdered By: Edwin Juan on 07-02-2024 [facility] Work Phone: No Panel Informationon 05-11 XRAY CHEST 1 VIEW Invalid Interpretation Code [facility] Work Phone: Comment on above: XRAY CHEST 1 VIEWFIN DINGS: The heart and mediastinum are normal. The trachea is midline. No acute cardiopulmonary disease is noted. The osseous structures are normal for age.CONCLUSION: Normal chest exam.ELECTRONICALLY SIGNED BY FELIPE RANDHAWA D.O. 05/11/2024 3:38:17 PM EDT. No Panel Informationon 05-02 KNEE 1 OR 2 VIEWS Invalid Interpretation Code [facility] Work Phone: Comment on above: KNEE 1 OR 2 VIEWS, R Lito NoteFINDINGS: The patient is status post right [...] 04-27-2024 Anion gap [Moles/Vol] 3 mmol/L Normal [facility] Comment on above: Performed By: #### F X, BMPF #### Testing performed at [address] [address] Calcium [Mass/Vol] 8.0 mg/dL Low 8.4-10.2 [facility] Comment on above: Performed By: #### F X, BMPF #### Testing performed at [address] [address] Chloride [Moles/Vol] 102 mmol/L Normal 98-107 [facility] Comment on above: Result Comment: Krystian boyd note: Triglyceride levels of 600mg/dL or higher may positively bias chloride results by approximately 2.1 mmol Performed By: #### F X, BMPF #### Testing performed at [address] [address] CO2 [Moles/Vol] 32 mmol/L High 22-30 [facility] Comment on above: Performed By: #### F X, BMPF #### Testing performed at [address] [address] Creatinine [Mass/Vol] 0.70 mg/dL Normal 0.70-1.20 [facility] Comment on above: Performed By: #### F X, BMPF #### Testing performed at [address] [address] EST. GFR, 150 ml/min/1.73sq.m [facility] Comment on above: Performed By: #### F X, BMPF #### Testing performed at [address] [address] EST. GFR,Non 124 ml/min/1.73sq.m [facility] Comment on above: Performed By: #### F X, BMPF #### Testing performed at [address] [address] GFR Information Average GFR for 50-5 9 years old = 93. Normal [facility] Comment on above: Result Comment: Security And Compliance Analyst kaveh Kidney disease, GFR = <60. Kidney failure, GFR = <15. The GFR estimate is not adjusted for extreme body surface area or acute process, nor has it been validated for women or ethnic groups other than and . Performed By: #### F X, BMPF #### Testing performed at [address] [address] Glucose [Mass/Vol] 120 mg/dL High 70-100 [facility] Comment on above: Result Comment: NORMAL <100 mg/dL PREDIABETES 101-126 mg/dL DIABETES 126 mg/dL or higher Performed By: #### F X, BMPF #### Testing performed at [place] [id number] Potassium [Moles/Vol] 3.7 mmol/L Normal 3.5-5.1 [facility] Comment on above: Performed By: #### F X, BMPF #### Testing performed at [place] [id number] Sodium [Moles/Vol] 137 mmol/L Normal 137-145 [facility] Comment on above: Performed By: #### F X, BMPF #### Testing performed at [place] [id number] Urea nitrogen [Mass/Vol] 24 mg/dL High 7-20 [facility] Comment on above: Performed By: #### F X, BMPF #### Testing performed at [address] [address] FAX REQUESTon 04-27-2024 FAX TO [phone] [facility] Comment on above: Performed By: #### F X, BMPF #### Testing performed at [address] [address] CBCon 04-09-2024 Basophils/100 WBC (Bld) 1 % Normal 0.0-2.0 [facility] Comment on above: Performed By: #### U LIV, FX, ACBC, LIP2, FE2, CMPF, UMAC ####Testing performed at [address] [address] DTYPE AUTO DIFF [facility] Comment on above: Performed By: #### U LIV, FX, ACBC, LIP2, FE2, CMPF, UMAC ####Testing performed at [address] [address] Eosinophils/100 WBC (Bld) 2 % Normal 0.0-11.0 [facility] Comment on above: Performed By: #### U LIV, FX, ACBC, LIP2, FE2, CMPF, UMAC ####Testing performed at [address] [address] Lymphocytes/100 WBC (Bld) 20 % Normal 20.0-55.0 [facility] Comment on above: Performed By: #### U LIV, FX, ACBC, LIP2, FE2, CMPF, UMAC ####[place] [address] Monocytes/100 WBC (Bld) 11 % High 0.0-10.0 [facility] Comment on above: Performed By: #### U LIV, FX, ACBC, LIP2, FE2, CMPF, UMAC ####Testing performed at [place] [id number] Neutrophils/100 WBC (Bld) 66 % Normal 37.0-75.0 [facility] Comment on above: Performed By: #### U LIV, FX, ACBC, LIP2, FE2, CMPF, UMAC ####Testing performed at [address] [address] PLATELET COMMENT CLUMPED Normal [facility] Comment on above: Result Comment: DECR EASED Performed By: #### U LIV, FX, ACBC, LIP2, FE2, CMPF, UMAC ####Testing performed at [place] [id number] RBC morphology finding Nom (Bld) 2+ Normal [facility] Comment on above: Result Comment: ANIS OCYTE 2+ ELIPTOCYTES 2+ POIKILOCYTE 1+ MICROCYTOSIS Performed By: #### U LIV, FX, ACBC, LIP2, FE2, CMPF, UMAC ####Testing performed at [facility] [id number] [place] [address] Erythrocyte distribution width (RBC) [Ratio] 17.4 % High 11.5-14.5 [facility] Comment on above: Performed By: #### U LIV, FX, ACBC, LIP2, FE2, CMPF, UMAC ####Testing performed at [place] [id number] Hematocrit (Bld) [Volume fraction] 31.5 % Low 42.0-52.0 [facility] Comment on above: Performed By: #### U LIV, FX, ACBC, LIP2, FE2, CMPF, UMAC ####Testing performed at [place] [id number] Hemoglobin (Bld) [Mass/Vol] 9.9 g/dL Low 14.0-18.0 [facility] Comment on above: Performed By: #### U LIV, FX, ACBC, LIP2, FE2, CMPF, UMAC ####Testing performed at [place] [id number] MCH (RBC) [Entitic mass] 22.5 pg Low 26.0-35.0 [facility] Comment on above: Performed By: #### U LIV, FX, ACBC, LIP2, FE2, CMPF, UMAC ####Testing performed at [place] [id number] MCHC (RBC) [Mass/Vol] 31.4 g/dL Normal 27.0-37.0 [facility] Comment on above: Performed By: #### U LIV, FX, ACBC, LIP2, FE2, CMPF, UMAC ####Testing performed at [place] [id number] MCV (RBC) [Entitic vol] 71.6 fL Low 80.0-100.0 [facility] Comment on above: Performed By: #### U LIV, FX, ACBC, LIP2, FE2, CMPF, UMAC ####Testing performed at [place] [id number] Platelet mean volume (Bld) [Entitic vol] 8.8 fL Normal 7.4-11.0 [facility] Comment on above: Performed By: #### U LIV, FX, ACBC, LIP2, FE2, CMPF, UMAC ####Testing performed at [address] [address] Platelets (Bld) [#/Vol] 77 10*3/uL Low 130-400 [facility] Comment on above: Performed By: #### U LIV, FX, ACBC, LIP2, FE2, CMPF, UMAC ####Testing performed at [address] [address] RBC (Bld) [#/Vol] 4.40 10*6/uL Normal 4.0-6.1 [facility] Comment on above: Performed By: #### U LIV, FX, ACBC, LIP2, FE2, CMPF, UMAC ####Testing performed at [address] [address] WBC (Bld) [#/Vol] 3.7 10*3/uL Normal 3.6-11.0 [facility] Comment on above: Performed By: #### U LIV, FX, ACBC, LIP2, FE2, CMPF, UMAC ####Testing performed at [address] [address] CMP FASTINGon 04-09-2024 A:G RATIO 0.9 RATIO Normal [facility] Comment on above: Performed By: #### U LIV, FX, ACBC, LIP2, FE2, CMPF, UMAC #### Testing performed at [address] [address] ALBUMIN 3.3 G/dl Low 3.5-5.0 [facility] Comment on above: Performed By: #### U LIV, FX, ACBC, LIP2, FE2, CMPF, UMAC #### Testing performed at [address] [address] ALP [Catalytic activity/Vol] 101 U/L Normal 38-126 [facility] Comment on above: Performed By: #### U LIV, FX, ACBC, LIP2, FE2, CMPF, UMAC #### Testing performed at [address] [address] ALT [Catalytic activity/Vol] 16 U/L Normal <50 [facility] Comment on above: Performed By: #### U LIV, FX, ACBC, LIP2, FE2, CMPF, UMAC #### Testing performed at [address] [address] AST [Catalytic activity/Vol] 27 U/L Normal 17-59 [facility] Comment on above: Performed By: #### U LIV, FX, ACBC, LIP2, FE2, CMPF, UMAC #### Testing performed at [address] [address] Bilirubin [Mass/Vol] 0.9 mg/dL Normal 0.2-1.3 [facility] Comment on above: Performed By: #### U LIV, FX, ACBC, LIP2, FE2, CMPF, UMAC #### Testing performed at [address] [address] Calcium [Mass/Vol] 8.1 mg/dL Low 8.4-10.2 [facility] Comment on above: Performed By: #### U LIV, FX, ACBC, LIP2, FE2, CMPF, UMAC #### Testing performed at [address] [address] Chloride [Moles/Vol] 103 mmol/L Normal 98-107 [facility] Comment on above: Result Comment: Krystian boyd note: Triglyceride levels of 600mg/dL or higher may positively bias chloride results by approximately 2.1 mmol Performed By: #### U LIV, FX, ACBC, LIP2, FE2, CMPF, UMAC #### Testing performed at [address] [address] CO2 [Moles/Vol] 30 mmol/L Normal 22-30 [facility] Comment on above: Performed By: #### U LIV, FX, ACBC, LIP2, FE2, CMPF, UMAC #### Testing performed at [address] [address] Creatinine [Mass/Vol] 1.00 mg/dL Normal 0.70-1.20 [facility] Comment on above: Performed By: #### U LIV, FX, ACBC, LIP2, FE2, CMPF, UMAC #### Testing performed at [address] [address] EST. GFR, 99 ml/min/1.73sq.m [facility] Comment on above: Performed By: #### U LIV, FX, ACBC, LIP2, FE2, CMPF, UMAC #### Testing performed at [address] [address] EST. GFR,Non 82 ml/min/1.73sq.m [facility] Comment on above: Performed By: #### U LIV, FX, ACBC, LIP2, FE2, CMPF, UMAC #### Testing performed at [address] [address] GFR Information Average GFR for 50-5 9 years old = 93. [facility] Comment on above: Result Comment: Security And Compliance Analyst kaveh Kidney disease, GFR = <60. Kidney failure, GFR = <15. The GFR estimate is not adjusted for extreme body surface area or acute process, nor has it been validated for women or ethnic groups other than and . Performed By: #### U LIV, FX, ACBC, LIP2, FE2, CMPF, UMAC #### Testing performed at [address] [address] Glucose [Mass/Vol] 126 mg/dL High 70-100 [facility] Comment on above: Result Comment: NORMAL <100 mg/dL PREDIABETES 101-126 mg/dL DIABETES 126 mg/dL or higher Performed By: #### U LIV, FX, ACBC, LIP2, FE2, CMPF, UMAC #### Testing performed at [address] [address] Potassium [Moles/Vol] 4.2 mmol/L Normal 3.5-5.1 [facility] Comment on above: Performed By: #### U LIV, FX, ACBC, LIP2, FE2, CMPF, UMAC #### Testing performed at [address] [address] Protein [Mass/Vol] 7.0 g/dL Normal 6.3-8.2 [facility] Comment on above: Performed By: #### U LIV, FX, ACBC, LIP2, FE2, CMPF, UMAC #### Testing performed at [address] [address] Sodium [Moles/Vol] 136 mmol/L Low 137-145 [facility] Comment on above: Performed By: #### U LIV, FX, ACBC, LIP2, FE2, CMPF, UMAC #### Testing performed at [address] [address] Urea nitrogen [Mass/Vol] 19 mg/dL Normal 7-20 [facility] Comment on above: Performed By: #### U LIV, FX, ACBC, LIP2, FE2, CMPF, UMAC #### Testing performed at [address] [address] FAX REQUESTon 04-09-2024 FAX TO [phone] Normal [facility] Comment on above: Performed By: #### U LIV, FX, ACBC, LIP2, FE2, CMPF, UMAC #### Testing performed at [address] [address] FERRITINon 04-09-2024 Ferritin [Mass/Vol] 67 ng/mL Normal 17.9-464 [facility] Comment on above: Performed By: #### F RTN ####Testing performed at [address] [place] [address] IRONon 04-09-2024 Iron [Mass/Vol] 66 ug/dL Normal 49-181 [facility] Comment on above: Performed By: #### U LIV, FX, ACBC, LIP2, FE2, CMPF, UMAC #### Testing performed at [address] [place] [address] LIPID PROFILEon 04-09-2024 Cholesterol [Mass/Vol] 96 mg/dL Normal [facility] Comment on above: Performed By: #### U LIV, FX, ACBC, LIP2, FE2, CMPF, UMAC #### Testing performed at [address] [address] Cholesterol in HDL [Mass/Vol] 32 mg/dL Normal 26-63 [facility] Comment on above: Performed By: #### U LIV, FX, ACBC, LIP2, FE2, CMPF, UMAC #### Testing performed at [address] [address] Cholesterol in LDL [Mass/Vol] 52 mg/dL Normal <100 [facility] Comment on above: Performed By: #### U LIV, FX, ACBC, LIP2, FE2, CMPF, UMAC #### Testing performed at [address] [address] Cholesterol in VLDL [Mass/Vol] 12 mg/dL Normal 5-25 [facility] Comment on above: Performed By: #### U LIV, FX, ACBC, LIP2, FE2, CMPF, UMAC #### Testing performed at [address] [address] Cholesterol.total/Ch olesterol in HDL [Mass ratio] 3.00 {ratio} Normal [facility] Comment on above: Result Comment: RISK TOTAL/HDL RATIO MEN WOMEN 1/2 AVERAGE 3.43 3.27 AVERAGE 4.97 4.44 2X AVERAGE 9.55 7.05 3X AVERAGE 23.99 11.04 Performed By: #### U LIV, FX, ACBC, LIP2, FE2, CMPF, UMAC #### Testing performed at [address] [address] Triglyceride [Mass/Vol] 60 mg/dL Normal 0-150 [facility] Comment on above: Performed By: #### U LIV, FX, ACBC, LIP2, FE2, CMPF, UMAC #### Testing performed at [address] [address] TSHon 04-09-2024 TSH 1.550 uIU/ML Normal 0.465-4.680 [facility] Comment on above: Performed By: #### T SH2 #### Testing performed at [address] [address] URINE CULTUREon 04-09-2024 Bacteria identified Cx Nom (U) SPECIMEN DESCRIPTION URINE CLEAN CATCH UA DIPSTICK LEUKOCYTE NEGATIVE * Result Note: NITRITE NEGATIVE * CULTURE NO GROWTH 2 DAYS * Result Note: Testing performed at [place] [address] * REPORT STATUS 04/11/2024 * Result Note: FINAL * Normal [facility] Comment on above: Performed By: #### A URNC ####Testing performed at [address] [place] [address] performed at [place] [address] [place] [address] URINE MACROSCOPICon 04-09-20 24 Bilirubin Ql (U) Negative Normal NEGATIVE [facility] Comment on above: Performed By: #### U LIV, FX, ACBC, LIP2, FE2, CMPF, UMAC #### Testing performed at [address] [address] Clarity (U) CLEAR Normal CLEAR [facility] Comment on above: Performed By: #### U LIV, FX, ACBC, LIP2, FE2, CMPF, UMAC #### Testing performed at [address] [address] Color (U) YELLOW Normal YELLOW [facility] Comment on above: Performed By: #### U LIV, FX, ACBC, LIP2, FE2, CMPF, UMAC #### Testing performed at [address] [address] Glucose Ql (U) Negative Normal NEGATIVE [facility] Comment on above: Performed By: #### U LIV, FX, ACBC, LIP2, FE2, CMPF, UMAC #### Testing performed at [address] [address] pH (U) 7.0 [pH] Normal 5.0-7.0 [facility] Comment on above: Performed By: #### U LIV, FX, ACBC, LIP2, FE2, CMPF, UMAC #### Testing performed at [address] [address] URINE HEMOGLOBIN SMALL Abnormal NEGATIVE [facility] Comment on above: Performed By: #### U LIV, FX, ACBC, LIP2, FE2, CMPF, UMAC #### Testing performed at [address] [address] URINE KETONE Negative Normal NEGATIVE [facility] Comment on above: Performed By: #### U LIV, FX, ACBC, LIP2, FE2, CMPF, UMAC #### Testing performed at [address] [address] URINE LEUKOTEST Negative Normal NEGATIVE [facility] Comment on above: Performed By: #### U LIV, FX, ACBC, LIP2, FE2, CMPF, UMAC #### Testing performed at [address] [address] URINE NITRATES Negative Normal NEGATIVE [facility] Comment on above: Performed By: #### U LIV, FX, ACBC, LIP2, FE2, CMPF, UMAC #### Testing performed at [address] [address] URINE SPEC GRAVITY 1.020 Normal 1.010-1.025 [facility] Comment on above: Performed By: #### U LIV, FX, ACBC, LIP2, FE2, CMPF, UMAC #### Testing performed at [address] [address] URINE TOTAL PROTEIN Negative Normal NEGATIVE [facility] Comment on above: Performed By: #### U LIV, FX, ACBC, LIP2, FE2, CMPF, UMAC #### Testing performed at [address] [address] Urobilinogen Qn (U) 4.0 {Eliseo'U}/dL High 0.2-1.0 [facility] Comment on above: Performed By: #### U LIV, FX, ACBC, LIP2, FE2, CMPF, UMAC #### Testing performed at [address] [address] URINE MICROSCOPICon 04-09-20 24 BACTERIA TRACE Abnormal NEGATIVE [facility] Comment on above: Performed By: #### U LIV, FX, ACBC, LIP2, FE2, CMPF, UMAC ####Testing performed at [address] [address] CASTS NONE Normal NONE [facility] Comment on above: Performed By: #### U LIV, FX, ACBC, LIP2, FE2, CMPF, UMAC ####Testing performed at [address] [place] [address] CRYSTAL NONE Normal NONE [facility] Comment on above: Performed By: #### U LIV, FX, ACBC, LIP2, FE2, CMPF, UMAC ####Testing performed at [address] [address] Epithelial cells LM Ql (Urine sed) 1 TO 5 Normal [facility] Comment on above: Performed By: #### U LIV, FX, ACBC, LIP2, FE2, CMPF, UMAC ####Testing performed at [address] [address] Mucus Ql (Urine sed) Negative Normal NEGATIVE [facility] Comment on above: Performed By: #### U LIV, FX, ACBC, LIP2, FE2, CMPF, UMAC ####Testing performed at [address] [address] URINE COMMENT PHYSICIAN REQUESTED CULTURE Normal [facility] Comment on above: Performed By: #### U LIV, FX, ACBC, LIP2, FE2, CMPF, UMAC ####Testing performed at [address] [address] URINE RBC'S 1 TO 5 Normal NEGATIVE [facility] Comment on above: Performed By: #### U LIV, FX, ACBC, LIP2, FE2, CMPF, UMAC ####Testing performed at [address] [address] URINE WBC'S 1 TO 5 Normal NEGATIVE [facility] Comment on above: Performed By: #### U LIV, FX, ACBC, LIP2, FE2, CMPF, UMAC ####Testing performed at [address] [address] No Panel Informationon 03-15 VENOUS DOPPLER EXTREM/TERRY Invalid Interpretation Code [facility] Work Phone: Comment on above: VENOUS DOPPLER [...] B (Bld) [Mass/Vol] 143 pg/mL High 0-100 [facility] Comment on above: Performed By: #### A CBC, DDIMER, BNP, CMPF, PT ####Testing performed at [address] [address] CBCon 09-19-2023 Basophils/100 WBC (Bld) 0 % Normal 0.0-2.0 [facility] Comment on above: Performed By: #### T SH2 #### Testing performed at [address] [address] DTYPE AUTO DIFF Normal [facility] Comment on above: Performed By: #### T SH2 #### Testing performed at [address] [address] Eosinophils/100 WBC (Bld) 1 % Normal 0.0-11.0 [facility] Comment on above: Performed By: #### T SH2 #### Testing performed at [address] [address] Lymphocytes/100 WBC (Bld) 14 % Low 20.0-55.0 [facility] Comment on above: Performed By: #### T SH2 #### Testing performed at [address] [address] Monocytes/100 WBC (Bld) 7 % Normal 0.0-10.0 [facility] Comment on above: Performed By: #### T SH2 #### Testing performed at [address] [address] Neutrophils/100 WBC (Bld) 78 % High 37.0-75.0 [facility] Comment on above: Performed By: #### T SH2 #### Testing performed at [address] [address] PLATELET COMMENT DECREASED Normal [facility] Comment on above: Performed By: #### T SH2 #### Testing performed at [address] [address] RBC morphology finding Nom (Bld) 1+ Normal [facility] Comment on above: Result Comment: MICR OCYTOSIS 1+ ANISOCYTE Performed By: #### T SH2 #### Testing performed at [address] [address] Erythrocyte distribution width (RBC) [Ratio] 16.9 % High 11.5-14.5 [facility] Comment on above: Performed By: #### T SH2 #### Testing performed at [address] [address] Hematocrit (Bld) [Volume fraction] 34.3 % Low 42.0-52.0 [facility] Comment on above: Performed By: #### T SH2 #### Testing performed at [address] [address] Hemoglobin (Bld) [Mass/Vol] 10.9 g/dL Low 14.0-18.0 [facility] Comment on above: Performed By: #### T SH2 #### Testing performed at [address] [address] MCH (RBC) [Entitic mass] 22.0 pg Low 26.0-35.0 [facility] Comment on above: Performed By: #### T SH2 #### Testing performed at [address] [address] MCHC (RBC) [Mass/Vol] 31.9 g/dL Normal 27.0-37.0 [facility] Comment on above: Performed By: #### T SH2 #### Testing performed at [address] [address] MCV (RBC) [Entitic vol] 69.2 fL Low 80.0-100.0 [facility] Comment on above: Performed By: #### T SH2 #### Testing performed at [address] [address] Platelet mean volume (Bld) [Entitic vol] 8.9 fL Normal 7.4-11.0 [facility] Comment on above: Performed By: #### T SH2 #### Testing performed at [address] [place] [address] Platelets (Bld) [#/Vol] 103 10*3/uL Low 130-400 [facility] Comment on above: Performed By: #### T SH2 #### Testing performed at [address] [address] RBC (Bld) [#/Vol] 4.96 10*6/uL Normal 4.0-6.1 [facility] Comment on above: Performed By: #### T SH2 #### Testing performed at [address] [address] WBC (Bld) [#/Vol] 3.3 10*3/uL Low 3.6-11.0 [facility] Comment on above: Performed By: #### T SH2 #### Testing performed at [address] [address] CMP FASTINGon 09-19-2023 A:G RATIO 0.9 RATIO Normal [facility] Comment on above: Performed By: #### A CBC, DDIMER, BNP, CMPF, PT ####Testing performed at [address] [address] ALBUMIN 3.4 G/dl Low 3.5-5.0 [facility] Comment on above: Performed By: #### A CBC, DDIMER, BNP, CMPF, PT ####Testing performed at [address] [place] [address] ALP [Catalytic activity/Vol] 84 U/L Normal 38-126 [facility] Comment on above: Performed By: #### A CBC, DDIMER, BNP, CMPF, PT ####Testing performed at [address] [place] [address] ALT [Catalytic activity/Vol] 24 U/L Normal <50 [facility] Comment on above: Performed By: #### A CBC, DDIMER, BNP, CMPF, PT ####Testing performed at [address] [place] [address] AST [Catalytic activity/Vol] 32 U/L Normal 17-59 [facility] Comment on above: Performed By: #### A CBC, DDIMER, BNP, CMPF, PT ####Testing performed at [place] [id number] Bilirubin [Mass/Vol] 0.9 mg/dL Normal 0.2-1.3 [facility] Comment on above: Performed By: #### A CBC, DDIMER, BNP, CMPF, PT ####Testing performed at [place] [id number] Calcium [Mass/Vol] 9.0 mg/dL Normal 8.4-10.2 [facility] Comment on above: Performed By: #### A CBC, DDIMER, BNP, CMPF, PT ####Testing performed at [place] [id number] Chloride [Moles/Vol] 100 mmol/L Normal 98-107 [facility] Comment on above: Result Comment: Krystian boyd note: Triglyceride levels of 600mg/dL or higher may positively bias chloride results by approximately 2.1 mmol Performed By: #### A CBC, DDIMER, BNP, CMPF, PT ####[place] [address] CO2 [Moles/Vol] 30 mmol/L Normal 22-30 [facility] Comment on above: Performed By: #### A CBC, DDIMER, BNP, CMPF, PT ####Testing performed at [place] [id number] Creatinine [Mass/Vol] 0.60 mg/dL Low 0.70-1.20 [facility] Comment on above: Performed By: #### A CBC, DDIMER, BNP, CMPF, PT ####Testing performed at [address] [address] EST. GFR, 179 ml/min/1.73sq.m [facility] Comment on above: Performed By: #### A CBC, DDIMER, BNP, CMPF, PT ####Testing performed at [address] [address] EST. GFR,Non 148 ml/min/1.73sq.m [facility] Comment on above: Performed By: #### A CBC, DDIMER, BNP, CMPF, PT ####Testing performed at [place] [id number] GFR Information Average GFR for 50-5 9 years old = 93. Normal [facility] Comment on above: Result Comment: Security And Compliance Analyst kaveh Kidney disease, GFR = <60. Kidney failure, GFR = <15. The GFR estimate is not adjusted for extreme body surface area or acute process, nor has it been validated for women or ethnic groups other than and . Performed By: #### A CBC, DDIMER, BNP, CMPF, PT ####Testing performed at [place] [id number] Glucose [Mass/Vol] 116 mg/dL High 70-100 [facility] Comment on above: Result Comment: NORMAL <100 mg/dL PREDIABETES 101-126 mg/dL DIABETES 126 mg/dL or higher Performed By: #### A CBC, DDIMER, BNP, CMPF, PT ####[place] [address] Potassium [Moles/Vol] 4.3 mmol/L Normal 3.5-5.1 [facility] Comment on above: Performed By: #### A CBC, DDIMER, BNP, CMPF, PT ####[place] [address] Protein [Mass/Vol] 7.1 g/dL Normal 6.3-8.2 [facility] Comment on above: Performed By: #### A CBC, DDIMER, BNP, CMPF, PT ####Testing performed at [place] [id number] Sodium [Moles/Vol] 134 mmol/L Low 137-145 [facility] Comment on above: Performed By: #### A CBC, DDIMER, BNP, CMPF, PT ####Testing performed at [place] [id number] Urea nitrogen [Mass/Vol] 19 mg/dL Normal 7-20 [facility] Comment on above: Performed By: #### A CBC, DDIMER, BNP, CMPF, PT ####Testing performed at [place] [id number] CT PE STUDYon 09-19-2023 CT PE STUDY EXAMINATION: CT PE S ZOFIADY HISTORY: Positive d-dimer, shortness of breath COMPARISON: [...] adjacent free fluid. Consider ultrasound evaluation. Normal [facility] D DIMERon 09-19-2023 D DIMER 12.91 ??g/ml Critically high <0.50 [facility] Comment on above: Result Comment: If r esult is greater than the cutoff value of 0.50 ??g/ml then the potential for PE or DVT exists. Other conditions exist which may cause a falsely elevated level. Please correlate clinically, including radiological findings and other clinical parameters. Result called to and read back by: FAIZAN 09/19/2023 @ 05:43 by EVAN Performed By: #### A CBC, DDIMER, BNP, CMPF, PT ####Testing performed at [facility] [place] [address] LACTATE,BLOODon 09-19-2023 Lactate [Moles/Vol] 2.0 mmol/L Normal 0.7-2.0 [facility] Comment on above: Performed By: #### L ACTAC #### Testing performed at [address] [address] PROTIMEon 09-19-2023 INR Coag (PPP) [Relative time] 1.06 {INR} Normal 0.85-1.10 [facility] Comment on above: Result Comment: 2.0-3.0 THERAPEUTIC RANGE 2.5-3.5 MECHANICAL VALVE RANGE Performed By: #### A CBC, DDIMER, BNP, CMPF, PT ####Testing performed at [place] [id number] PT Coag (PPP) [Time] 13.9 s Normal 11.8-14.4 [facility] Comment on above: Performed By: #### A CBC, DDIMER, BNP, CMPF, PT ####Testing performed at [place] [id number] TROPONIN I, HIGH SENSITIVITY on 09-19-2023 TROPONIN I, HIGH SENSITIVITY 16 pg/mL Normal 0-20 [facility] Comment on above: Result Comment: Indeterminant: >12 to 100 pg/mL female >20 to 100 pg/mL male Indicative of myocardial injury. Serial sampling is recommended, a change of greater than or equal to 20 pg/mL is indicative of acute coronary syndrome. Performed By: #### T ROHS ####Testing performed at [place] [id number] XR CHEST PA 1 VIEWon 024 XR [...] 2. Resection of distal left clavicle. Normal [facility] No Panel Informationon 08-19 Cecilia Gonzales DPM 08/19/2023 3:08 PM Debridement Wound 05/18/23 Skin [...] Response to treatment: procedure was tolerated well [facility] Glucose (Bld) [Mass/Vol]on 10-12-2022 Glucose [Mass/Vol] 119 mg/dL High 65 - 99 mg/dL [facility] Interpretation and review of laboratory results Abnormal [facility] Glucose [Mass/Vol] 181 mg/dL High 65 - 99 mg/dL [facility] Interpretation and review of laboratory results Abnormal [facility] Glucose [Mass/Vol] 105 mg/dL High 65 - 99 mg/dL [facility] Interpretation and review of laboratory results Abnormal [facility] CBC Auto Differentialon 07-23 Erythrocyte distribution width (RBC) [Entitic vol] 16.1 % High 11.6 - 14.8 % [facility] Hematocrit (Bld) [Volume fraction] 32.0 % Low 41.0 - 53.0 % [facility] Hemoglobin (Bld) [Mass/Vol] 10.1 g/dL Low 13.5 - 17.5 g/dL [facility] Interpretation and review of laboratory results Abnormal [facility] MCH (RBC) [Entitic mass] 22.2 pg Low 26.0 - 34.0 pg [facility] MCHC (RBC) [Mass/Vol] 31.6 g/dL 31.0 - 37.0 g/dL [facility] MCV (RBC) [Entitic vol] 70.3 fL Low 80.0 - 100.0 fL [facility] Nucleated RBC (Bld) [#/Vol] 0.00 10*3/uL [facility] Nucleated RBC/100 WBC (Bld) [Ratio] 0.0 % [facility] Platelets (Bld) [#/Vol] 101 10*3/uL Low [facility] RBC (Bld) [#/Vol] 4.55 10*6/uL [facility] WBC (Bld) [#/Vol] 2.46 10*3/uL Low [facility] and Diff Morphologyon Ovalocytes LM Ql (Bld) Many [facility] Platelets Large Auto Ql (Bld) Few [facility] Polychromasia LM Ql (Bld) Few [facility] RBC morphology finding Nom (Bld) See Comment [facility] Target cells LM Ql (Bld) Few [facility] Comprehensive metabolic 2000 panelOrdered By: Gaby Brambila on 08-10-2023 Albumin [Mass/Vol] 2.7 g/dL Low 3.2 - 5.2 g/dL [facility] ALP [Catalytic activity/Vol] 60 U/L 40 - 150 U/L [facility] ALT [Catalytic activity/Vol] 17 U/L 14 - 65 U/L [facility] Anion gap [Moles/Vol] 8 mmol/L Low 10 - 20 mmol/L [facility] AST [Catalytic activity/Vol] 15 U/L [facility] Bilirubin [Mass/Vol] 0.8 mg/dL 0.0 - 1 .3 mg/dL [facility] Calcium [Mass/Vol] 8.2 mg/dL Low 8.4 - 10. 2 mg/dL [facility] Chloride [Moles/Vol] 107 mmol/L 98 - 10 8 mmol/L [facility] Creatinine [Mass/Vol] 0.61 mg/dL 0.50 - 1.30 mg/dL [facility] GFR/1.73 sq M.predicted CKD-EPI (S/P/Bld) [Vol rate/Area] 112 - PINF [facility] Glucose [Mass/Vol] 96 mg/dL 65 - 99 mg/dL [facility] HCO3 [Moles/Vol] 30 mmol/L 21 - 32 mmol/L [facility] Interpretation and review of laboratory results Abnormal [facility] Potassium [Moles/Vol] 4.1 mmol/L 3.5 - 5.1 mmol/L [facility] Protein [Mass/Vol] 6.6 g/dL 6.0 - 8.0 g/dL [facility] Sodium [Moles/Vol] 141 mmol/L 135 - 145 mmol/L [facility] Urea nitrogen [Mass/Vol] 20 mg/dL 8 - 25 mg/dL [facility] Urea nitrogen/Creatinine [Mass ratio] 32.8 mg/mg High 10.0 - 20.0 [facility] Glucose (Bld) [Mass/Vol]on 10-11-2022 Glucose [Mass/Vol] 110 mg/dL High 65 - 99 mg/dL [facility] Interpretation and review of laboratory results Abnormal [facility] Magnesium Levelon 08-10-2023 Magnesium [Mass/Vol] 2.2 mg/dL 1.6 - 2 .4 mg/dL [facility] Magnesium [Mass/Vol]on 08-10 Interpretation and review of laboratory results Normal [facility] Manual Differential panel (B ld)on 08-10-2023 Basophils (Bld) [#/Vol] 0.00 10*3/uL [facility] Basophils/100 WBC (Bld) 0.0 % [facility] Eosinophils (Bld) [#/Vol] 0.06 10*3/uL [facility] Eosinophils/100 WBC (Bld) 2.6 % [facility] Interpretation and review of laboratory results Abnormal [facility] Lymphocytes (Bld) [#/Vol] 0.43 10*3/uL Low [facility] Lymphocytes/100 WBC (Bld) 17.4 % [facility] Monocytes (Bld) [#/Vol] 0.17 10*3/uL Low [facility] Monocytes/100 WBC (Bld) 7.0 % [facility] Neutrophils (Bld) [#/Vol] 1.80 10*3/uL [facility] Neutrophils/100 WBC (Bld) 73.0 % [facility] Occult Blood Stool Immunoass ay (Alcira, Juan F, Mary Only)Ordered By: Traci Leslie on 08-10-2023 Hemoglobin.gastroint estinal Ql (Stl) Negative Negative for Occult Blood [facility] Interpretation and review of laboratory results Normal [facility] Phosphate [Mass/Vol]on 08-10 Interpretation and review of laboratory results Normal [facility] Phosphoruson 08-10-2023 Phosphate [Mass/Vol] 4.0 mg/dL 2.7 - 4 .5 mg/dL [facility] Glucose (Bld) [Mass/Vol]on 10-09-2022 Glucose [Mass/Vol] 113 mg/dL High 65 - 99 mg/dL [facility] Interpretation and review of laboratory results Abnormal [facility] Glucose [Mass/Vol] 101 mg/dL High 65 - 99 mg/dL [facility] Interpretation and review of laboratory results Abnormal [facility] Glucose [Mass/Vol] 116 mg/dL High 65 - 99 mg/dL [facility] Interpretation and review of laboratory results Abnormal [facility] Wound Aerobic CultureOrdered By: Bentley Leo on 08-08-2023 Bacteria identified Aer cx Nom (Wound) No Growth After 48 Hours [facility] Microscopic observation Gram stain Nom (Wound) Few WBC [facility] Microscopic observation Gram stain Nom (Wound) Moderate RBC [facility] Microscopic observation Gram stain Nom (Wound) No Organisms Seen [facility] Glucose (Bld) [Mass/Vol]on 1 10-08-2022 Glucose [Mass/Vol] 160 mg/dL High 65 - 99 mg/dL [facility] Interpretation and review of laboratory results Abnormal [facility] Glucose [Mass/Vol] 142 mg/dL High 65 - 99 mg/dL [facility] Interpretation and review of laboratory results Abnormal [facility] US Abdomenon 08-07-2023 GE RIS GE RIS [facility] US AbdomenOrdered By: Mari Tolliver on 08-07-2023 [facility] Work Phone: CBC Auto Differentialon 07-22 Basophils (Bld) [#/Vol] 0.00 10*3/uL [facility] Basophils/100 WBC (Bld) 0.0 % [facility] Eosinophils (Bld) [#/Vol] 0.00 10*3/uL [facility] Eosinophils/100 WBC (Bld) 0.0 % [facility] Erythrocyte distribution width (RBC) [Entitic vol] 15.7 % High 11.6 - 14.8 % [facility] Hematocrit (Bld) [Volume fraction] 30.9 % Low 41.0 - 53.0 % [facility] Hemoglobin (Bld) [Mass/Vol] 9.6 g/dL Low 13.5 - 17.5 g/dL [facility] Immature granulocytes (Bld) [#/Vol] 0.01 10*3/uL [facility] Immature granulocytes/100 WBC (Bld) 0.40 % [facility] Interpretation and review of laboratory results Abnormal [facility] Lymphocytes (Bld) [#/Vol] 0.35 10*3/uL Low [facility] Lymphocytes/100 WBC (Bld) 12.9 % [facility] MCH (RBC) [Entitic mass] 21.9 pg Low 26.0 - 34.0 pg [facility] MCHC (RBC) [Mass/Vol] 31.1 g/dL 31.0 - 37.0 g/dL [facility] MCV (RBC) [Entitic vol] 70.5 fL Low 80.0 - 100.0 fL [facility] Monocytes (Bld) [#/Vol] 0.16 10*3/uL Low [facility] Monocytes/100 WBC (Bld) 5.9 % [facility] Neutrophils (Bld) [#/Vol] 2.20 10*3/uL [facility] Neutrophils/100 WBC (Bld) 80.8 % [facility] Nucleated RBC (Bld) [#/Vol] 0.00 10*3/uL [facility] Nucleated RBC/100 WBC (Bld) [Ratio] 0.0 % [facility] Platelets (Bld) [#/Vol] 84 10*3/uL Low [facility] RBC (Bld) [#/Vol] 4.38 10*6/uL Low [facility] WBC (Bld) [#/Vol] 2.72 10*3/uL Low [facility] CBC and Diff Morphologyon Dacrocytes LM Ql (Bld) Few [facility] Interpretation and review of laboratory results Abnormal [facility] Ovalocytes LM Ql (Bld) Moderate [facility] Polychromasia LM Ql (Bld) Few [facility] RBC morphology finding Nom (Bld) See Comment [facility] Schistocytes Auto Ql (Bld) Few Abnormal See Comment [facility] Target cells LM Ql (Bld) Many [facility] Comprehensive metabolic 2000 panelOrdered By: Violeta Garcia on 08-06-2023 Albumin [Mass/Vol] 2.7 g/dL Low 3.2 - 5.2 g/dL [facility] ALP [Catalytic activity/Vol] 64 U/L 40 - 150 U/L [facility] ALT [Catalytic activity/Vol] 14 U/L 14 - 65 U/L [facility] Anion gap [Moles/Vol] 8 mmol/L Low 10 - 20 mmol/L [facility] AST [Catalytic activity/Vol] 17 U/L [facility] Bilirubin [Mass/Vol] 0.4 mg/dL 0.0 - 1 .3 mg/dL [facility] Calcium [Mass/Vol] 8.0 mg/dL Low 8.4 - 10. 2 mg/dL [facility] Chloride [Moles/Vol] 107 mmol/L 98 - 10 8 mmol/L [facility] Creatinine [Mass/Vol] 0.60 mg/dL 0.50 - 1.30 mg/dL [facility] GFR/1.73 sq M.predicted CKD-EPI (S/P/Bld) [Vol rate/Area] 113 - PINF [facility] Glucose [Mass/Vol] 127 mg/dL High 65 - 99 mg/dL [facility] HCO3 [Moles/Vol] 29 mmol/L 21 - 32 mmol/L [facility] Interpretation and review of laboratory results Abnormal [facility] Potassium [Moles/Vol] 4.6 mmol/L 3.5 - 5.1 mmol/L [facility] Protein [Mass/Vol] 6.8 g/dL 6.0 - 8.0 g/dL [facility] Sodium [Moles/Vol] 139 mmol/L 135 - 145 mmol/L [facility] Urea nitrogen [Mass/Vol] 17 mg/dL 8 - 25 mg/dL [facility] Urea nitrogen/Creatinine [Mass ratio] 28.3 mg/mg High 10.0 - 20.0 [facility] Glucose (Bld) [Mass/Vol]on 10-07-2022 Glucose [Mass/Vol] 136 mg/dL High 65 - 99 mg/dL [facility] Interpretation and review of laboratory results Abnormal [facility] Glucose [Mass/Vol] 124 mg/dL High 65 - 99 mg/dL [facility] Interpretation and review of laboratory results Abnormal [facility] Glucose [Mass/Vol] 124 mg/dL High 65 - 99 mg/dL [facility] Interpretation and review of laboratory results Abnormal [facility] Magnesium Levelon 08-06-2023 Magnesium [Mass/Vol] 2.1 mg/dL 1.6 - 2 .4 mg/dL [facility] Magnesium [Mass/Vol]on 08-06 Interpretation and review of laboratory results Normal [facility] Phosphate [Mass/Vol]on 08-06 Interpretation and review of laboratory results Normal [facility] Phosphoruson 08-06-2023 Phosphate [Mass/Vol] 3.5 mg/dL 2.7 - 4 .5 mg/dL [facility] US Abdomenon 08-06-2023 Radiology Study observation (narrative) [facility] CBC Auto Differentialon 07-22 Basophils (Bld) [#/Vol] 0.01 10*3/uL [facility] Basophils/100 WBC (Bld) 0.4 % [facility] Eosinophils (Bld) [#/Vol] 0.04 10*3/uL [facility] Eosinophils/100 WBC (Bld) 1.6 % [facility] Erythrocyte distribution width (RBC) [Entitic vol] 15.7 % High 11.6 - 14.8 % [facility] Hematocrit (Bld) [Volume fraction] 30.1 % Low 41.0 - 53.0 % [facility] Hemoglobin (Bld) [Mass/Vol] 9.4 g/dL Low 13.5 - 17.5 g/dL [facility] Immature granulocytes (Bld) [#/Vol] 0.01 10*3/uL [facility] Immature granulocytes/100 WBC (Bld) 0.40 % [facility] Interpretation and review of laboratory results Abnormal [facility] Lymphocytes (Bld) [#/Vol] 0.66 10*3/uL Low [facility] Lymphocytes/100 WBC (Bld) 26.6 % [facility] MCH (RBC) [Entitic mass] 21.9 pg Low 26.0 - 34.0 pg [facility] MCHC (RBC) [Mass/Vol] 31.2 g/dL 31.0 - 37.0 g/dL [facility] MCV (RBC) [Entitic vol] 70.2 fL Low 80.0 - 100.0 fL [facility] Monocytes (Bld) [#/Vol] 0.22 10*3/uL Low [facility] Monocytes/100 WBC (Bld) 8.9 % [facility] Neutrophils (Bld) [#/Vol] 1.54 10*3/uL Low [facility] Neutrophils/100 WBC (Bld) 62.1 % [facility] Nucleated RBC (Bld) [#/Vol] 0.00 10*3/uL [facility] Nucleated RBC/100 WBC (Bld) [Ratio] 0.0 % [facility] Platelets (Bld) [#/Vol] 84 10*3/uL Low [facility] RBC (Bld) [#/Vol] 4.29 10*6/uL Low [facility] WBC (Bld) [#/Vol] 2.48 10*3/uL Low [facility] CBC and Diff Morphologyon Interpretation and review of laboratory results Abnormal [facility] Ovalocytes LM Ql (Bld) Moderate [facility] Polychromasia LM Ql (Bld) Few [facility] RBC morphology finding Nom (Bld) See Comment [facility] Schistocytes Auto Ql (Bld) Few Abnormal See Comment [facility] Target cells LM Ql (Bld) Few [facility] Comprehensive metabolic 2000 panelOrdered By: Debbie Deutsch on 08-05-2023 Albumin [Mass/Vol] 2.6 g/dL Low 3.2 - 5.2 g/dL [facility] ALP [Catalytic activity/Vol] 70 U/L 40 - 150 U/L [facility] ALT [Catalytic activity/Vol] 14 U/L 14 - 65 U/L [facility] Anion gap [Moles/Vol] 9 mmol/L Low 10 - 20 mmol/L [facility] AST [Catalytic activity/Vol] 13 U/L [facility] Bilirubin [Mass/Vol] 0.5 mg/dL 0.0 - 1 .3 mg/dL [facility] Calcium [Mass/Vol] 7.9 mg/dL Low 8.4 - 10. 2 mg/dL [facility] Chloride [Moles/Vol] 107 mmol/L 98 - 10 8 mmol/L [facility] Creatinine [Mass/Vol] 0.75 mg/dL 0.50 - 1.30 mg/dL [facility] GFR/1.73 sq M.predicted CKD-EPI (S/P/Bld) [Vol rate/Area] 105 - PINF [facility] Glucose [Mass/Vol] 110 mg/dL High 65 - 99 mg/dL [facility] HCO3 [Moles/Vol] 27 mmol/L 21 - 32 mmol/L [facility] Interpretation and review of laboratory results Abnormal [facility] Potassium [Moles/Vol] 4.3 mmol/L 3.5 - 5.1 mmol/L [facility] Protein [Mass/Vol] 6.4 g/dL 6.0 - 8.0 g/dL [facility] Sodium [Moles/Vol] 139 mmol/L 135 - 145 mmol/L [facility] Urea nitrogen [Mass/Vol] 21 mg/dL 8 - 25 mg/dL [facility] Urea nitrogen/Creatinine [Mass ratio] 28.0 mg/mg High 10.0 - 20.0 [facility] Glucose (Bld) [Mass/Vol]on 10-06-2022 Glucose [Mass/Vol] 98 mg/dL 65 - 99 mg/dL [facility] Interpretation and review of laboratory results Normal [facility] Glucose [Mass/Vol] 102 mg/dL High 65 - 99 mg/dL [facility] Interpretation and review of laboratory results Abnormal [facility] Magnesium Levelon 08-05-2023 Magnesium [Mass/Vol] 2.0 mg/dL 1.6 - 2 .4 mg/dL [facility] Magnesium [Mass/Vol]on 08-05 Interpretation and review of laboratory results Normal [facility] Phosphate [Mass/Vol]on 08-05 Interpretation and review of laboratory results Normal [facility] Phosphoruson 08-05-2023 Phosphate [Mass/Vol] 3.5 mg/dL 2.7 - 4 .5 mg/dL [facility] Reticulocytes panel (Bld)on 08-05-2023 Hemoglobin Auto (Reticulocytes) [Entitic mass] 22.8 PG Low 27.7 - 38.2 PG [facility] Immature reticulocytes (Bld) [#/Vol] 21.9 % High 2.3 - 15.9 % [facility] Interpretation and review of laboratory results Abnormal [facility] Reticulocytes (Bld) [#/Vol] 0.077 10*3/uL [facility] Reticulocytes/100 RBC (Bld) 1.8 % [facility] CBC Auto Differentialon 07-22 Basophils (Bld) [#/Vol] 0.01 10*3/uL [facility] Basophils/100 WBC (Bld) 0.4 % [facility] Eosinophils (Bld) [#/Vol] 0.06 10*3/uL [facility] Eosinophils/100 WBC (Bld) 2.6 % [facility] Erythrocyte distribution width (RBC) [Entitic vol] 15.7 % High 11.6 - 14.8 % [facility] Hematocrit (Bld) [Volume fraction] 30.6 % Low 41.0 - 53.0 % [facility] Hemoglobin (Bld) [Mass/Vol] 9.4 g/dL Low 13.5 - 17.5 g/dL [facility] Immature granulocytes (Bld) [#/Vol] 0.01 10*3/uL [facility] Immature granulocytes/100 WBC (Bld) 0.40 % [facility] Interpretation and review of laboratory results Abnormal [facility] Lymphocytes (Bld) [#/Vol] 0.67 10*3/uL Low [facility] Lymphocytes/100 WBC (Bld) 29.1 % [facility] MCH (RBC) [Entitic mass] 21.5 pg Low 26.0 - 34.0 pg [facility] MCHC (RBC) [Mass/Vol] 30.7 g/dL Low 31.0 - 37.0 g/dL [facility] MCV (RBC) [Entitic vol] 69.9 fL Low 80.0 - 100.0 fL [facility] Monocytes (Bld) [#/Vol] 0.25 10*3/uL Low [facility] Monocytes/100 WBC (Bld) 10.9 % [facility] Neutrophils (Bld) [#/Vol] 1.30 10*3/uL Low [facility] Neutrophils/100 WBC (Bld) 56.6 % [facility] Nucleated RBC (Bld) [#/Vol] 0.00 10*3/uL [facility] Nucleated RBC/100 WBC (Bld) [Ratio] 0.0 % [facility] Platelets (Bld) [#/Vol] 84 10*3/uL Low [facility] RBC (Bld) [#/Vol] 4.38 10*6/uL Low [facility] WBC (Bld) [#/Vol] 2.30 10*3/uL Low [facility] CBC and Diff Morphologyon Ovalocytes LM Ql (Bld) Few [facility] RBC morphology finding Nom (Bld) See Comment [facility] Target cells LM Ql (Bld) Moderate [facility] Cobalamin (Vitamin B12) [Mas s/Vol]on 08-04-2023 Interpretation and review of laboratory results Normal [facility] Comprehensive metabolic 2000 panelOrdered By: Joslyn Page on 08-04-2023 Albumin [Mass/Vol] 2.7 g/dL Low 3.2 - 5.2 g/dL [facility] ALP [Catalytic activity/Vol] 65 U/L 40 - 150 U/L [facility] ALT [Catalytic activity/Vol] 15 U/L 14 - 65 U/L [facility] Anion gap [Moles/Vol] 7 mmol/L Low 10 - 20 mmol/L [facility] AST [Catalytic activity/Vol] 13 U/L [facility] Bilirubin [Mass/Vol] 0.5 mg/dL 0.0 - 1 .3 mg/dL [facility] Calcium [Mass/Vol] 8.4 mg/dL 8.4 - 10. 2 mg/dL [facility] Chloride [Moles/Vol] 107 mmol/L 98 - 10 8 mmol/L [facility] Creatinine [Mass/Vol] 0.60 mg/dL 0.50 - 1.30 mg/dL [facility] GFR/1.73 sq M.predicted CKD-EPI (S/P/Bld) [Vol rate/Area] 113 - PINF [facility] Glucose [Mass/Vol] 92 mg/dL 65 - 99 mg/dL [facility] HCO3 [Moles/Vol] 29 mmol/L 21 - 32 mmol/L [facility] Interpretation and review of laboratory results Abnormal [facility] Potassium [Moles/Vol] 4.3 mmol/L 3.5 - 5.1 mmol/L [facility] Protein [Mass/Vol] 6.6 g/dL 6.0 - 8.0 g/dL [facility] Sodium [Moles/Vol] 139 mmol/L 135 - 145 mmol/L [facility] Urea nitrogen [Mass/Vol] 18 mg/dL 8 - 25 mg/dL [facility] Urea nitrogen/Creatinine [Mass ratio] 30.0 mg/mg High 10.0 - 20.0 [facility] Folateon 08-04-2023 Folate [Mass/Vol] 13.0 ng/mL 3.1 - 17.5 ng/mL [facility] Folate [Mass/Vol]on 08-04-20 Interpretation and review of laboratory results Normal [facility] Glucose (Bld) [Mass/Vol]on 10-05-2022 Glucose [Mass/Vol] 143 mg/dL High 65 - 99 mg/dL [facility] Interpretation and review of laboratory results Abnormal [facility] Glucose [Mass/Vol] 140 mg/dL High 65 - 99 mg/dL [facility] Interpretation and review of laboratory results Abnormal [facility] Glucose [Mass/Vol] 123 mg/dL High 65 - 99 mg/dL [facility] Interpretation and review of laboratory results Abnormal [facility] Glucose [Mass/Vol] 93 mg/dL 65 - 99 mg/dL [facility] Interpretation and review of laboratory results Normal [facility] Iron Study with Ferritinon 10-05-2022 Ferritin [Mass/Vol] 33 ng/mL 30 - 400 ng/mL [facility] Interpretation and review of laboratory results Abnormal [facility] Iron [Mass/Vol] 37 ug/[facility] capacity [Mass/Vol] 273 [facility] Iron saturation [Mass fraction] 14 % Low 20 - 50 % [facility] LDHon 08-04-2023 LDH Lactate to pyruvate reaction [Catalytic activity/Vol] 130 U/L 100 - 250 U/L [facility] LDH Lactate to pyruvate reac tion [Catalytic activity/Vol]on 08-04-2023 Interpretation and review of laboratory results Normal [facility] Magnesium Levelon 08-04-2023 Magnesium [Mass/Vol] 2.0 mg/dL 1.6 - 2 .4 mg/dL [facility] Magnesium [Mass/Vol]on 08-04 Interpretation and review of laboratory results Normal [facility] Phosphate [Mass/Vol]on 08-04 Interpretation and review of laboratory results Normal [facility] Phosphoruson 08-04-2023 Phosphate [Mass/Vol] 4.0 mg/dL 2.7 - 4 .5 mg/dL [facility] Vitamin B12on 08-04-2023 Cobalamin (Vitamin B12) [Mass/Vol] 305 pg/mL 193 - 986 pg/mL [facility] Wound Aerobic CultureOrdered By: Neeru Barroso on 08-04-2023 Bacteria identified Aer cx Nom (Wound) No Growth After 48 Hours [facility] Microscopic observation Gram stain Nom (Wound) Many WBC [facility] Microscopic observation Gram stain Nom (Wound) Positive [facility] Microscopic observation Gram stain Nom (Wound) Moderate RBC [facility] Bacteria identified Cx Nom ( Bld)on 08-03-2023 Interpretation and review of laboratory results Normal [facility] CBC Auto Differentialon 07-22 Basophils (Bld) [#/Vol] 0.01 10*3/uL [facility] Basophils/100 WBC (Bld) 0.3 % [facility] Eosinophils (Bld) [#/Vol] 0.07 10*3/uL [facility] Eosinophils/100 WBC (Bld) 2.1 % [facility] Erythrocyte distribution width (RBC) [Entitic vol] 16.0 % High 11.6 - 14.8 % [facility] Hematocrit (Bld) [Volume fraction] 33.4 % Low 41.0 - 53.0 % [facility] Hemoglobin (Bld) [Mass/Vol] 10.4 g/dL Low 13.5 - 17.5 g/dL [facility] Immature granulocytes (Bld) [#/Vol] 0.01 10*3/uL [facility] Immature granulocytes/100 WBC (Bld) 0.30 % [facility] Interpretation and review of laboratory results Abnormal [facility] Lymphocytes (Bld) [#/Vol] 0.76 10*3/uL Low [facility] Lymphocytes/100 WBC (Bld) 23.0 % [facility] MCH (RBC) [Entitic mass] 21.8 pg Low 26.0 - 34.0 pg [facility] MCHC (RBC) [Mass/Vol] 31.1 g/dL 31.0 - 37.0 g/dL [facility] MCV (RBC) [Entitic vol] 70.2 fL Low 80.0 - 100.0 fL [facility] Monocytes (Bld) [#/Vol] 0.34 10*3/uL [facility] Monocytes/100 WBC (Bld) 10.3 % [facility] Neutrophils (Bld) [#/Vol] 2.12 10*3/uL [facility] Neutrophils/100 WBC (Bld) 64.0 % [facility] Nucleated RBC (Bld) [#/Vol] 0.00 10*3/uL [facility] Nucleated RBC/100 WBC (Bld) [Ratio] 0.0 % [facility] Platelets (Bld) [#/Vol] 104 10*3/uL Low [facility] RBC (Bld) [#/Vol] 4.76 10*6/uL [facility] WBC (Bld) [#/Vol] 3.31 10*3/uL Low [facility] Comprehensive metabolic 2000 panelOrdered By: Jack Vines on 08-03-2023 Albumin [Mass/Vol] 3.0 g/dL Low 3.2 - 5.2 g/dL [facility] ALP [Catalytic activity/Vol] 81 U/L 40 - 150 U/L [facility] ALT [Catalytic activity/Vol] 16 U/L 14 - 65 U/L [facility] Anion gap [Moles/Vol] 7 mmol/L Low 10 - 20 mmol/L [facility] AST [Catalytic activity/Vol] 15 U/L [facility] Bilirubin [Mass/Vol] 0.5 mg/dL 0.0 - 1 .3 mg/dL [facility] Calcium [Mass/Vol] 8.3 mg/dL Low 8.4 - 10. 2 mg/dL [facility] Chloride [Moles/Vol] 105 mmol/L 98 - 10 8 mmol/L [facility] Creatinine [Mass/Vol] 0.60 mg/dL 0.50 - 1.30 mg/dL [facility] GFR/1.73 sq M.predicted CKD-EPI (S/P/Bld) [Vol rate/Area] 113 - PINF [facility] Glucose [Mass/Vol] 97 mg/dL 65 - 99 mg/dL [facility] HCO3 [Moles/Vol] 28 mmol/L 21 - 32 mmol/L [facility] Interpretation and review of laboratory results Abnormal [facility] Potassium [Moles/Vol] 4.1 mmol/L 3.5 - 5.1 mmol/L [facility] Protein [Mass/Vol] 7.4 g/dL 6.0 - 8.0 g/dL [facility] Sodium [Moles/Vol] 136 mmol/L 135 - 145 mmol/L [facility] Urea nitrogen [Mass/Vol] 17 mg/dL 8 - 25 mg/dL [facility] Urea nitrogen/Creatinine [Mass ratio] 28.3 mg/mg High 10.0 - 20.0 [facility] Glucose (Bld) [Mass/Vol]on 10-04-2022 Glucose [Mass/Vol] 134 mg/dL High 65 - 99 mg/dL [facility] Interpretation and review of laboratory results Abnormal [facility] Glucose [Mass/Vol] 118 mg/dL High 65 - 99 mg/dL [facility] Interpretation and review of laboratory results Abnormal [facility] Glucose [Mass/Vol] 117 mg/dL High 65 - 99 mg/dL [facility] Interpretation and review of laboratory results Abnormal [facility] Glucose [Mass/Vol] 93 mg/dL 65 - 99 mg/dL [facility] Interpretation and review of laboratory results Normal [facility] Glucose [Mass/Vol] 155 mg/dL High 65 - 99 mg/dL [facility] Interpretation and review of laboratory results Abnormal [facility] Laboratory - Microbiology an d Antimicrobial susceptibilityon 08-03-2023 Bacteria identified Cx Nom (Bld) No Growth After [address] [facility] Magnesium Levelon 08-03-2023 Magnesium [Mass/Vol] 1.8 mg/dL 1.6 - 2 .4 mg/dL [facility] No Panel Informationon 08-03 Interpretation and review of laboratory results Normal [facility] Phosphoruson 08-03-2023 Phosphate [Mass/Vol] 3.4 mg/dL 2.7 - 4 .5 mg/dL [facility] Wound Aerobic CultureOrdered By: Elodia Ngo on 08-03-2023 Bacteria identified Aer cx Nom (Wound) No Growth After 48 Hours [facility] Microscopic observation Gram stain Nom (Wound) No Organisms Seen [facility] Microscopic observation Gram stain Nom (Wound) Few WBC [facility] CBC Auto Differentialon 07-22 Basophils (Bld) [#/Vol] 0.00 10*3/uL [facility] Basophils/100 WBC (Bld) 0.0 % [facility] Eosinophils (Bld) [#/Vol] 0.06 10*3/uL [facility] Eosinophils/100 WBC (Bld) 2.3 % [facility] Erythrocyte distribution width (RBC) [Entitic vol] 15.6 % High 11.6 - 14.8 % [facility] Hematocrit (Bld) [Volume fraction] 31.4 % Low 41.0 - 53.0 % [facility] Hemoglobin (Bld) [Mass/Vol] 10.0 g/dL Low 13.5 - 17.5 g/dL [facility] Immature granulocytes (Bld) [#/Vol] 0.00 10*3/uL [facility] Immature granulocytes/100 WBC (Bld) 0.00 % [facility] Interpretation and review of laboratory results Abnormal [facility] Lymphocytes (Bld) [#/Vol] 0.65 10*3/uL Low [facility] Lymphocytes/100 WBC (Bld) 24.7 % [facility] MCH (RBC) [Entitic mass] 22.1 pg Low 26.0 - 34.0 pg [facility] MCHC (RBC) [Mass/Vol] 31.8 g/dL 31.0 - 37.0 g/dL [facility] MCV (RBC) [Entitic vol] 69.5 fL Low 80.0 - 100.0 fL [facility] Monocytes (Bld) [#/Vol] 0.22 10*3/uL Low [facility] Monocytes/100 WBC (Bld) 8.4 % [facility] Neutrophils (Bld) [#/Vol] 1.70 10*3/uL [facility] Neutrophils/100 WBC (Bld) 64.6 % [facility] Nucleated RBC (Bld) [#/Vol] 0.00 10*3/uL [facility] Nucleated RBC/100 WBC (Bld) [Ratio] 0.0 % [facility] Platelets (Bld) [#/Vol] 92 10*3/uL Low [facility] RBC (Bld) [#/Vol] 4.52 10*6/uL [facility] WBC (Bld) [#/Vol] 2.63 10*3/uL Low [facility] CBC and Diff Morphologyon Ovalocytes LM Ql (Bld) Moderate [facility] RBC morphology finding Nom (Bld) See Comment [facility] Target cells LM Ql (Bld) Few [facility] Comprehensive metabolic 2000 panelOrdered By: Katerin Crum on 08-02-2023 Albumin [Mass/Vol] 2.9 g/dL Low 3.2 - 5.2 g/dL [facility] ALP [Catalytic activity/Vol] 70 U/L 40 - 150 U/L [facility] ALT [Catalytic activity/Vol] 15 U/L 14 - 65 U/L [facility] Anion gap [Moles/Vol] 7 mmol/L Low 10 - 20 mmol/L [facility] AST [Catalytic activity/Vol] 12 U/L [facility] Bilirubin [Mass/Vol] 0.6 mg/dL 0.0 - 1 .3 mg/dL [facility] Calcium [Mass/Vol] 8.5 mg/dL 8.4 - 10. 2 mg/dL [facility] Chloride [Moles/Vol] 106 mmol/L 98 - 10 8 mmol/L [facility] Creatinine [Mass/Vol] 0.62 mg/dL 0.50 - 1.30 mg/dL [facility] GFR/1.73 sq M.predicted CKD-EPI (S/P/Bld) [Vol rate/Area] 111 - PINF [facility] Glucose [Mass/Vol] 92 mg/dL 65 - 99 mg/dL [facility] HCO3 [Moles/Vol] 28 mmol/L 21 - 32 mmol/L [facility] Interpretation and review of laboratory results Abnormal [facility] Potassium [Moles/Vol] 4.4 mmol/L 3.5 - 5.1 mmol/L [facility] Protein [Mass/Vol] 7.0 g/dL 6.0 - 8.0 g/dL [facility] Sodium [Moles/Vol] 137 mmol/L 135 - 145 mmol/L [facility] Urea nitrogen [Mass/Vol] 17 mg/dL 8 - 25 mg/dL [facility] Urea nitrogen/Creatinine [Mass ratio] 27.4 mg/mg High 10.0 - 20.0 [facility] Glucose (Bld) [Mass/Vol]on 1 2-12-2023 Glucose [Mass/Vol] 125 mg/dL High 65 - 99 mg/dL [facility] Interpretation and review of laboratory results Abnormal [facility] Glucose [Mass/Vol] 181 mg/dL High 65 - 99 mg/dL [facility] Interpretation and review of laboratory results Abnormal [facility] Glucose [Mass/Vol] 127 mg/dL High 65 - 99 mg/dL [facility] Interpretation and review of laboratory results Abnormal [facility] Glucose [Mass/Vol] 104 mg/dL High 65 - 99 mg/dL [facility] Interpretation and review of laboratory results Abnormal [facility] Magnesium Levelon 08-02-2023 Magnesium [Mass/Vol] 2.0 mg/dL 1.6 - 2 .4 mg/dL [facility] Magnesium [Mass/Vol]on 08-02 Interpretation and review of laboratory results Normal [facility] Phosphate [Mass/Vol]on 08-02 Interpretation and review of laboratory results Normal [facility] Phosphoruson 08-02-2023 Phosphate [Mass/Vol] 3.8 mg/dL 2.7 - 4 .5 mg/dL [facility] CBC Auto Differentialon 07-22 Basophils (Bld) [#/Vol] 0.01 10*3/uL [facility] Basophils/100 WBC (Bld) 0.4 % [facility] Eosinophils (Bld) [#/Vol] 0.07 10*3/uL [facility] Eosinophils/100 WBC (Bld) 2.9 % [facility] Erythrocyte distribution width (RBC) [Entitic vol] 15.8 % High 11.6 - 14.8 % [facility] Hematocrit (Bld) [Volume fraction] 30.3 % Low 41.0 - 53.0 % [facility] Hemoglobin (Bld) [Mass/Vol] 9.6 g/dL Low 13.5 - 17.5 g/dL [facility] Immature granulocytes (Bld) [#/Vol] 0.01 10*3/uL [facility] Immature granulocytes/100 WBC (Bld) 0.40 % [facility] Interpretation and review of laboratory results Abnormal [facility] Lymphocytes (Bld) [#/Vol] 0.62 10*3/uL Low [facility] Lymphocytes/100 WBC (Bld) 25.5 % [facility] MCH (RBC) [Entitic mass] 22.2 pg Low 26.0 - 34.0 pg [facility] MCHC (RBC) [Mass/Vol] 31.7 g/dL 31.0 - 37.0 g/dL [facility] MCV (RBC) [Entitic vol] 70.1 fL Low 80.0 - 100.0 fL [facility] Monocytes (Bld) [#/Vol] 0.20 10*3/uL Low [facility] Monocytes/100 WBC (Bld) 8.2 % [facility] Neutrophils (Bld) [#/Vol] 1.52 10*3/uL Low [facility] Neutrophils/100 WBC (Bld) 62.6 % [facility] Nucleated RBC (Bld) [#/Vol] 0.00 10*3/uL [facility] Nucleated RBC/100 WBC (Bld) [Ratio] 0.0 % [facility] Platelets (Bld) [#/Vol] 89 10*3/uL Low [facility] RBC (Bld) [#/Vol] 4.32 10*6/uL Low [facility] WBC (Bld) [#/Vol] 2.43 10*3/uL Low [facility] CBC and Diff Morphologyon Ovalocytes LM Ql (Bld) Moderate [facility] RBC morphology finding Nom (Bld) See Comment [facility] Target cells LM Ql (Bld) Few [facility] Comprehensive metabolic 2000 panelon 08-01-2023 Albumin [Mass/Vol] 2.6 g/dL Low 3.2 - 5.2 g/dL [facility] ALP [Catalytic activity/Vol] 68 U/L 40 - 150 U/L [facility] ALT [Catalytic activity/Vol] 13 U/L Low 14 - 65 U/L [facility] Anion gap [Moles/Vol] 9 mmol/L Low 10 - 20 mmol/L [facility] AST [Catalytic activity/Vol] 12 U/L [facility] Bilirubin [Mass/Vol] 0.6 mg/dL 0.0 - 1 .3 mg/dL [facility] Calcium [Mass/Vol] 7.9 mg/dL Low 8.4 - 10. 2 mg/dL [facility] Chloride [Moles/Vol] 105 mmol/L 98 - 10 8 mmol/L [facility] Creatinine [Mass/Vol] 0.70 mg/dL 0.50 - 1.30 mg/dL [facility] GFR/1.73 sq M.predicted CKD-EPI (S/P/Bld) [Vol rate/Area] 107 - PINF [facility] Glucose [Mass/Vol] 182 mg/dL High 65 - 99 mg/dL [facility] HCO3 [Moles/Vol] 27 mmol/L 21 - 32 mmol/L [facility] Interpretation and review of laboratory results Abnormal [facility] Potassium [Moles/Vol] 3.9 mmol/L 3.5 - 5.1 mmol/L [facility] Protein [Mass/Vol] 6.7 g/dL 6.0 - 8.0 g/dL [facility] Sodium [Moles/Vol] 137 mmol/L 135 - 145 mmol/L [facility] Urea nitrogen [Mass/Vol] 16 mg/dL 8 - 25 mg/dL [facility] Urea nitrogen/Creatinine [Mass ratio] 22.9 mg/mg High 10.0 - 20.0 [facility] Creatinine [Mass/Vol]on 07-22 GFR/1.73 sq M.predicted CKD-EPI (S/P/Bld) [Vol rate/Area] 111 - PINF [facility] Interpretation and review of laboratory results Normal [facility] Creatinine, serumon 08-01-20 Creatinine [Mass/Vol] 0.63 mg/dL 0.50 - 1.30 mg/dL [facility] Glucose (Bld) [Mass/Vol]on 10-02-2022 Glucose [Mass/Vol] 111 mg/dL High 65 - 99 mg/dL [facility] Interpretation and review of laboratory results Abnormal [facility] Glucose [Mass/Vol] 127 mg/dL High 65 - 99 mg/dL [facility] Interpretation and review of laboratory results Abnormal [facility] Magnesium Levelon 08-01-2023 Magnesium [Mass/Vol] 1.8 mg/dL 1.6 - 2 .4 mg/dL [facility] Magnesium [Mass/Vol]on 08-01 Interpretation and review of laboratory results Normal [facility] Phosphate [Mass/Vol]on 08-01 Interpretation and review of laboratory results Normal [facility] Phosphoruson 08-01-2023 Phosphate [Mass/Vol] 2.8 mg/dL 2.7 - 4 .5 mg/dL [facility] Vancomycin Level, Randomon 10-02-2022 Vancomycin [Mass/Vol] 15.5 mcg/mL [facility] Vancomycin [Mass/Vol]on 07-22 [facility] Wound Aerobic CultureOrdered By: Deonna Queen on 08-01-2023 Bacteria identified Aer cx Nom (Wound) No Growth After 48 Hours [facility] Microscopic observation Gram stain Nom (Wound) Moderate WBC [facility] Microscopic observation Gram stain Nom (Wound) No Organisms Seen [facility] Basic metabolic 2000 panelon 07-31-2023 Anion gap [Moles/Vol] 9 mmol/L Low 10 - 20 mmol/L [facility] Calcium [Mass/Vol] 7.9 mg/dL Low 8.4 - 10. 2 mg/dL [facility] Chloride [Moles/Vol] 107 mmol/L 98 - 10 8 mmol/L [facility] Creatinine [Mass/Vol] 0.70 mg/dL 0.50 - 1.30 mg/dL [facility] GFR/1.73 sq M.predicted CKD-EPI (S/P/Bld) [Vol rate/Area] 107 - PINF [facility] Glucose [Mass/Vol] 135 mg/dL High 65 - 99 mg/dL [facility] HCO3 [Moles/Vol] 27 mmol/L 21 - 32 mmol/L [facility] Interpretation and review of laboratory results Abnormal [facility] Potassium [Moles/Vol] 3.9 mmol/L 3.5 - 5.1 mmol/L [facility] Sodium [Moles/Vol] 139 mmol/L 135 - 145 mmol/L [facility] Urea nitrogen [Mass/Vol] 16 mg/dL 8 - 25 mg/dL [facility] Urea nitrogen/Creatinine [Mass ratio] 22.9 mg/mg High 10.0 - 20.0 [facility] Creatinine [Mass/Vol]on 07-22 GFR/1.73 sq M.predicted CKD-EPI (S/P/Bld) [Vol rate/Area] 107 - PINF [facility] Interpretation and review of laboratory results Normal [facility] Creatinine, serumon 07-31-20 Creatinine [Mass/Vol] 0.71 mg/dL 0.50 - 1.30 mg/dL [facility] Glucose (Bld) [Mass/Vol]on 10-01-2022 Glucose [Mass/Vol] 137 mg/dL High 65 - 99 mg/dL [facility] Interpretation and review of laboratory results Abnormal [facility] Glucose [Mass/Vol] 173 mg/dL High 65 - 99 mg/dL [facility] Interpretation and review of laboratory results Abnormal [facility] Glucose [Mass/Vol] 155 mg/dL High 65 - 99 mg/dL [facility] Interpretation and review of laboratory results Abnormal [facility] Glucose [Mass/Vol] 88 mg/dL 65 - 99 mg/dL [facility] Interpretation and review of laboratory results Normal [facility] Magnesium Levelon 07-31-2023 Magnesium [Mass/Vol] 1.9 mg/dL 1.6 - 2 .4 mg/dL [facility] Magnesium [Mass/Vol]on 07-31 Interpretation and review of laboratory results Normal [facility] Wound Aerobic CultureOrdered By: Deonna Queen on 07-31-2023 Bacteria identified Aer cx Nom (Wound) Moderate Growth Normal Skin Sobeida [facility] Microscopic observation Gram stain Nom (Wound) No Organisms Seen [facility] Microscopic observation Gram stain Nom (Wound) No WBC Seen [facility] Microscopic observation Gram stain Nom (Wound) Rare RBC [facility] CBC Auto Differentialon Basophils (Bld) [#/Vol] 0.01 10*3/uL [facility] Basophils/100 WBC (Bld) 0.4 % [facility] Eosinophils (Bld) [#/Vol] 0.06 10*3/uL [facility] Eosinophils/100 WBC (Bld) 2.3 % [facility] Erythrocyte distribution width (RBC) [Entitic vol] 15.8 % High 11.6 - 14.8 % [facility] Hematocrit (Bld) [Volume fraction] 32.4 % Low 41.0 - 53.0 % [facility] Hemoglobin (Bld) [Mass/Vol] 10.1 g/dL Low 13.5 - 17.5 g/dL [facility] Immature granulocytes (Bld) [#/Vol] 0.01 10*3/uL [facility] Immature granulocytes/100 WBC (Bld) 0.40 % [facility] Interpretation and review of laboratory results Abnormal [facility] Lymphocytes (Bld) [#/Vol] 0.75 10*3/uL Low [facility] Lymphocytes/100 WBC (Bld) 29.3 % [facility] MCH (RBC) [Entitic mass] 21.9 pg Low 26.0 - 34.0 pg [facility] MCHC (RBC) [Mass/Vol] 31.2 g/dL 31.0 - 37.0 g/dL [facility] MCV (RBC) [Entitic vol] 70.1 fL Low 80.0 - 100.0 fL [facility] Monocytes (Bld) [#/Vol] 0.19 10*3/uL Low [facility] Monocytes/100 WBC (Bld) 7.4 % [facility] Neutrophils (Bld) [#/Vol] 1.54 10*3/uL Low [facility] Neutrophils/100 WBC (Bld) 60.2 % [facility] Nucleated RBC (Bld) [#/Vol] 0.00 10*3/uL [facility] Nucleated RBC/100 WBC (Bld) [Ratio] 0.0 % [facility] Platelets (Bld) [#/Vol] 105 10*3/uL Low [facility] RBC (Bld) [#/Vol] 4.62 10*6/uL [facility] WBC (Bld) [#/Vol] 2.56 10*3/uL Low [facility] CBC and Diff Morphologyon Ovalocytes LM Ql (Bld) Moderate [facility] RBC morphology finding Nom (Bld) See Comment [facility] Target cells LM Ql (Bld) Few [facility] CRP [Mass/Vol]on 07-30-2023 Interpretation and review of laboratory results Normal [facility] CRP, Inflammationon 07-30-20 CRP [Mass/Vol] 5.2 mg/L NINF - 10.0 mg/L [facility] CT Knee - right W contrast I Von 07-30-2023 GE RIS GE RIS [facility] CT Knee - right W contrast I VOrdered By: Rodolfo Garcia on 07-30-2023 [facility] Work Phone: ESR Westergren method (Bld) [Velocity]on 07-30-2023 ESR (Bld) [Velocity] 12 mm/h [facility] Interpretation and review of laboratory results Normal [facility] Glucose (Bld) [Mass/Vol]on 1 09-30-2022 Glucose [Mass/Vol] 129 mg/dL High 65 - 99 mg/dL [facility] Interpretation and review of laboratory results Abnormal [facility] Glucose [Mass/Vol] 194 mg/dL High 65 - 99 mg/dL [facility] Interpretation and review of laboratory results Abnormal [facility] Glucose [Mass/Vol] 129 mg/dL High 65 - 99 mg/dL [facility] Interpretation and review of laboratory results Abnormal [facility] Glucose [Mass/Vol] 116 mg/dL High 65 - 99 mg/dL [facility] Interpretation and review of laboratory results Abnormal [facility] HbA1c (Bld) [Mass fraction]O rdered By: Britni Aleman on 07-30-2023 Average glucose Estimated from glycated hemoglobin (Bld) [Mass/Vol] 88 mg/dL 68 - 114 mg/dL [facility] Interpretation and review of laboratory results Normal [facility] Hemoglobin [id number] By: Soco Aleman on 07-30-2023 HbA1c (Bld) [Mass fraction] 4.7 % 4.0 - 5.6 % [facility] MRSA DNA Amplified ProbeOrde red By: Claudia Gross on 07-30-2023 MRSA DNA HERMAN+probe Ql (Unsp spec) Negative Not Detected, MRSA NEGATIVE [facility] MRSA DNA EHRMAN+probe Ql (Unsp spec)Ordered By: Claudia Gross on 07-30-2023 Interpretation and review of laboratory results Normal [facility] Magnesiumon 07-30-2023 Magnesium [Mass/Vol] 1.9 mg/dL 1.6 - 2 .4 mg/dL [facility] Magnesium [Mass/Vol]on 07-30 [facility] No Panel Informationon 07-30 [facility] Interpretation and review of laboratory results Normal [facility] Renal function 2000 panelon 07-30-2023 Albumin [Mass/Vol] 2.8 g/dL Low 3.2 - 5.2 g/dL [facility] Anion gap [Moles/Vol] 7 mmol/L Low 10 - 20 mmol/L [facility] Calcium [Mass/Vol] 8.1 mg/dL Low 8.4 - 10. 2 mg/dL [facility] Chloride [Moles/Vol] 105 mmol/L 98 - 10 8 mmol/L [facility] Creatinine [Mass/Vol] 0.67 mg/dL 0.50 - 1.30 mg/dL [facility] GFR/1.73 sq M.predicted CKD-EPI (S/P/Bld) [Vol rate/Area] 109 - PINF [facility] Glucose [Mass/Vol] 94 mg/dL 65 - 99 mg/dL [facility] HCO3 [Moles/Vol] 30 mmol/L 21 - 32 mmol/L [facility] Interpretation and review of laboratory results Abnormal [facility] Phosphate [Mass/Vol] 3.7 mg/dL 2.7 - 4 .5 mg/dL [facility] Potassium [Moles/Vol] 4.1 mmol/L 3.5 - 5.1 mmol/L [facility] Sodium [Moles/Vol] 138 mmol/L 135 - 145 mmol/L [facility] Urea nitrogen [Mass/Vol] 14 mg/dL 8 - 25 mg/dL [facility] Urea nitrogen/Creatinine [Mass ratio] 20.9 mg/mg High 10.0 - 20.0 [facility] TSH DL <= 0.005 mIU/L Qnon 1 09-30-2022 TSH Qn 1.70 m[IU]/L [facility] Basic metabolic 2000 panelon 07-29-2023 Anion gap [Moles/Vol] 7 mmol/L Low 10 - 20 mmol/L [facility] Calcium [Mass/Vol] 8.2 mg/dL Low 8.4 - 10. 2 mg/dL [facility] Chloride [Moles/Vol] 105 mmol/L 98 - 10 8 mmol/L [facility] Creatinine [Mass/Vol] 0.61 mg/dL 0.50 - 1.30 mg/dL [facility] GFR/1.73 sq M.predicted CKD-EPI (S/P/Bld) [Vol rate/Area] 112 - PINF [facility] Glucose [Mass/Vol] 140 mg/dL High 65 - 99 mg/dL [facility] HCO3 [Moles/Vol] 29 mmol/L 21 - 32 mmol/L [facility] Interpretation and review of laboratory results Abnormal [facility] Potassium [Moles/Vol] 3.9 mmol/L 3.5 - 5.1 mmol/L [facility] Sodium [Moles/Vol] 137 mmol/L 135 - 145 mmol/L [facility] Urea nitrogen [Mass/Vol] 15 mg/dL 8 - 25 mg/dL [facility] Urea nitrogen/Creatinine [Mass ratio] 24.6 mg/mg High 10.0 - 20.0 [facility] CBC Auto Differentialon Basophils (Bld) [#/Vol] 0.00 10*3/uL [facility] Basophils/100 WBC (Bld) 0.0 % [facility] Eosinophils (Bld) [#/Vol] 0.03 10*3/uL [facility] Eosinophils/100 WBC (Bld) 1.1 % [facility] Erythrocyte distribution width (RBC) [Entitic vol] 15.8 % High 11.6 - 14.8 % [facility] Hematocrit (Bld) [Volume fraction] 30.8 % Low 41.0 - 53.0 % [facility] Hemoglobin (Bld) [Mass/Vol] 9.7 g/dL Low 13.5 - 17.5 g/dL [facility] Immature granulocytes (Bld) [#/Vol] 0.01 10*3/uL [facility] Immature granulocytes/100 WBC (Bld) 0.40 % [facility] Interpretation and review of laboratory results Abnormal [facility] Lymphocytes (Bld) [#/Vol] 0.49 10*3/uL Low [facility] Lymphocytes/100 WBC (Bld) 17.9 % [facility] MCH (RBC) [Entitic mass] 22.1 pg Low 26.0 - 34.0 pg [facility] MCHC (RBC) [Mass/Vol] 31.5 g/dL 31.0 - 37.0 g/dL [facility] MCV (RBC) [Entitic vol] 70.2 fL Low 80.0 - 100.0 fL [facility] Monocytes (Bld) [#/Vol] 0.22 10*3/uL Low [facility] Monocytes/100 WBC (Bld) 8.0 % [facility] Neutrophils (Bld) [#/Vol] 1.99 10*3/uL [facility] Neutrophils/100 WBC (Bld) 72.6 % [facility] Nucleated RBC (Bld) [#/Vol] 0.00 10*3/uL [facility] Nucleated RBC/100 WBC (Bld) [Ratio] 0.0 % [facility] Platelets (Bld) [#/Vol] 100 10*3/uL Low [facility] RBC (Bld) [#/Vol] 4.39 10*6/uL Low [facility] WBC (Bld) [#/Vol] 2.74 10*3/uL [facility] [Mass/Vol]on 07-29-2023 Interpretation and review of laboratory results Normal [facility] CRP, Inflammationon 07-29-20 CRP [Mass/Vol] 5.6 mg/L NINF - 10.0 mg/L [facility] CT Knee - right W contrast I Von 07-29-2023 Radiology Study observation (narrative) [facility] ESR Westergren method (Bld) [Velocity]on 07-29-2023 ESR (Bld) [Velocity] 31 mm/h [facility] Interpretation and review of laboratory results Abnormal [facility] Glucose (Bld) [Mass/Vol]on 1 09-29-2022 Glucose [Mass/Vol] 132 mg/dL High 65 - 99 mg/dL [facility] Interpretation and review of laboratory results Abnormal [facility] Lactate [Moles/Vol]on 2022 Interpretation and review of laboratory results Normal [facility] Lactic Acid, Plasmaon 2022 Lactate [Moles/Vol] 1.5 mmol/L 0.6 - 2. 0 mmol/L [facility] No Panel Informationon 07-29 [facility] Cecilia Gonzales DPM 07/29/2023 11:24 PM [...] Response to treatment: procedure was tolerated well [facility] Wound Debridementon 07-15-20 Cecilia Gonzales DPM [...] Response to treatment: procedure was tolerated well [facility] No Panel Informationon 07-08 Cecilia Gonzales DPM 07/08/2023 [...] to treatment: procedure was tolerated well [facility] Panel Informationon 07-01 [facility] Cecilia Gonzales DPM 07/04/2023 2:34 AM [...] Response to treatment: procedure was tolerated well [facility] Wound Debridementon 07-01-20 Cecilia Gonzales DPM [...] Response to treatment: procedure was tolerated well [facility] XR KNEE RIGHT 2 VIEWS (STAND [...] Suggestion of diffuse soft tissue swelling with [id number] joint effusion. IMPRESSION: 1. Suboptimal positioning on the lateral view. 2. Grossly, no acute osseous abnormality. 3. Total knee replacement appears intact. 4. Suggestion of diffuse soft swelling with [id number] joint effusion. [facility] Workstation ID: [id number] Dictated by: KHADAR BETH on TueMay 30, 2023 5:00:22 PM EDT Transcribed by: CARLOS BARRY on TueMay 30, 2023 6:10:49 PM EDT Finalized by: KHADAR BETH on TueMay 30, 2023 6:33:03 PM EDT Normal [facility] Comment on above: Order Comment: [...] TueMay 17, 2023 4:38:31 PM EDT Normal [facility] Comment on above: Order Comment: [...] Use Authorization (EUA) for the qualitative detection [id number] nucleic acid. Normal [facility] Comment on above: Result Comment: Test ing performed at [place] [address] Performed By: #### TILA Gold RENF, PERI #### [place] [address] SARS-CoV-2 (COVID-19) RNA HERMAN+probe Ql (Unsp spec) Not detected Normal NOT DETECTED [facility] Comment on above: Result Comment: Nega [...] ill or clinically deteriorating. Performed By: #### Micheal Miller, TILA, WILNER, LIVR #### Testing performed at [address] [address] NOVEL CORONAVIRUS LAB 1 - NA SOPHARYNGEALon 04-07-2023 NARRATIVE -1 This test was perfor med using isothermal HERMAN and has been approved as Emergency Use Authorization (EUA) for the qualitative detection [id number] nucleic acid. [facility] Comment on above: Testing performed at [place] [address] SARS-CoV-2 (COVID-19) RNA HERMAN+probe Ql (Unsp spec) Not detected NOT DETECTED [facility] Comment on above: Negative results do not [...] patient is critically ill or clinically deteriorating. [facility] WOUND CULTUREon 04-03-2023 WOUND CULTURE SPECIMEN DESCRIPTION [...] * * Result Note: Testing performed at [place], [place] [address] * REPORT STATUS 04/03/2023 * Result Note: [...] LEVEL RESISTANT STREPTOMYCIN HIGH LEVEL RESISTANT Normal [facility] Comment on above: Performed By: #### TILA Gold RENF, LIVR #### [place] [address] MRSA SCREENon 03-31-2023 MRSA DNA HERMAN+probe Ql (Unsp spec) Negative Normal NEGATIVE [facility] Comment on above: Performed By: #### TILA Gold RENF, LIVR #### [place] [address] STAPH AUREUS SCREEN Negative Normal NEGATIVE [facility] Comment on above: Result Comment: TEST ING PERFORMED BY PCR Testing performed at [place] [address] Performed By: #### TILA Gold RENF, LIVR #### [place] [address] BLOOD CULTUREon 03-22-2023 COMMENT LEFT FOREARM [facility] COMMENT LAC [facility] CBCon 03-22-2023 ABSOLUTE BAS 0.0 10*3/uL Normal 0.0-0.2 [facility] Comment on above: Result Comment: Test ing performed at [place] [address] Performed By: #### TILA Gold, WILNER, LIVR #### [place] [address] ABSOLUTE EOS 0.3 10*3/uL Normal 0.0-0.7 [facility] Comment on above: Performed By: #### TILA Gold, WILNER, LIVR #### Testing performed at [facility] [place] [facility] [address] [place] [address] ABSOLUTE NEUTROPHIL COUNT 1.4 10*3/uL Normal 1.4-6.5 [facility] Comment on above: Performed By: #### TILA Gold RENF, LIVR #### Testing performed at [address] [address] Basophils/100 WBC (Bld) 0.7 % Normal 0.0-2.0 [facility] Comment on above: Performed By: #### Micheal Miller, TILA, SANDRAF, LIVR #### Testing performed at [address] [address] DTYPE AUTO DIFF Normal [facility] Comment on above: Performed By: #### Micheal Miller, TILA, WILNER, LIVR #### Testing performed at [address] [address] Eosinophils/100 WBC (Bld) 11.1 % High 0.0-11.0 [facility] Comment on above: Performed By: #### Micheal Miller, TILA, SANDRAF, LIVR #### Testing performed at [address] [address] Lymphocytes (Bld) [#/Vol] 0.7 10*3/uL Low 1.2-3.4 [facility] Comment on above: Performed By: #### Micheal Miller, TILA, SANDRAF, LIVR #### Testing performed at [address] [address] Lymphocytes/100 WBC (Bld) 25.1 % Normal 20.0-55.0 [facility] Comment on above: Performed By: #### Micheal Miller, TILA, RENF, LIVR #### Testing performed at [address] [address] Monocytes (Bld) [#/Vol] 0.3 10*3/uL Normal 0.0-0.7 [facility] Comment on above: Performed By: #### Micheal Miller, DAVIDBC, RENF, LIVR #### Testing performed at [address] [address] Monocytes/100 WBC (Bld) 10.0 % Normal 0.0-10.0 [facility] Comment on above: Performed By: #### TILA Gold, WILNER, LIVR #### Testing performed at [place] [id number] Neutrophils/100 WBC (Bld) 53.1 % Normal 37.0-75.0 [facility] Comment on above: Performed By: #### Micheal Miller, TILA, WILNER, LIVR #### [place] [address] Erythrocyte distribution width (RBC) [Ratio] 16.4 % High 11.5-14.5 [facility] Comment on above: Performed By: #### Micheal Miller, WILNER ADORNO, LIVR #### [place] [address] Hematocrit (Bld) [Volume fraction] 30.5 % Low 42.0-52.0 [facility] Comment on above: Performed By: #### Micheal Miller, TILA, WILNER, LIVR #### [place] [address] Hemoglobin (Bld) [Mass/Vol] 9.8 g/dL Low 14.0-18.0 [facility] Comment on above: Performed By: #### Micheal Miller, TILA, SANDRAF, LIVR #### Testing performed at [place] [id number] MCH (RBC) [Entitic mass] 23.0 pg Low 26.0-35.0 [facility] Comment on above: Performed By: #### Micheal Miller, TILA, SANDRAF, LIVR #### Testing performed at [place] [id number] MCHC (RBC) [Mass/Vol] 32.2 g/dL Normal 27.0-37.0 [facility] Comment on above: Performed By: #### Micheal Miller, TILA, RENF, LIVR #### Testing performed at [place] [id number] MCV (RBC) [Entitic vol] 71.6 fL Low 80.0-100.0 [facility] Comment on above: Performed By: #### Micheal Miller, TILA, WILNER, LIVR #### Testing performed at [place] [id number] Platelet mean volume (Bld) [Entitic vol] 8.5 fL Normal 7.4-11.0 [facility] Comment on above: Performed By: #### Micheal Miller, ACBC, SANDRAF, LIVR #### Testing performed at [place] [id number] Platelets (Bld) [#/Vol] 101 10*3/uL Low 130-400 [facility] Comment on above: Performed By: #### Micheal Miller, TILA, WILNER, LIVR #### [place] [address] RBC (Bld) [#/Vol] 4.27 10*6/uL Normal 4.0-6.1 [facility] Comment on above: Performed By: #### Micheal Miller, TILA, SANDRAF, LIVR #### [place] [address] WBC (Bld) [#/Vol] 2.6 10*3/uL Low 3.6-11.0 [facility] Comment on above: Performed By: #### Micheal Miller, TILA, RENF, LIVR #### Testing performed at [place] [id number] CBC, EDIF, PLATELETon 2022 ABSOLUTE BASOPHIL COUNT 0.0 10*3/uL 0.0 - 0.2 10*3/uL [facility] Comment on above: Testing performed at [place] [address] Basophils/100 WBC (Bld) 0.7 % 0.0 - 2.0 % [facility] Differential cell count method Nom (Bld) AUTO DIFF % [facility] Eosinophils (Bld) [#/Vol] 0.3 10*3/uL 0.0 - 0.7 10*3/uL [facility] Eosinophils/100 WBC (Bld) 11.1 % High 0.0 - 11.0 % [facility] Erythrocyte distribution width (RBC) [Ratio] 16.4 % High 11.5 - 14.5 % [facility] Hematocrit (Bld) [Volume fraction] 30.5 % Low 42.0 - 52.0 % [facility] Hemoglobin (Bld) [Mass/Vol] 9.8 g/dL Low [facility] Interpretation and review of laboratory results Abnormal [facility] Lymphocytes (Bld) [#/Vol] 0.7 10*3/uL Low 1.2 - 3.4 10*3/uL [facility] Lymphocytes/100 WBC (Bld) 25.1 % 20.0 - 55.0 % [facility] MCH (RBC) [Entitic mass] 23.0 pg Low 26.0 - 35.0 PG [facility] MCHC (RBC) [Mass/Vol] 32.2 g/dL [facility] MCV (RBC) [Entitic vol] 71.6 fL Low [facility] Monocytes (Bld) [#/Vol] 0.3 10*3/uL 0.0 - 0.7 10*3/uL [facility] Monocytes/100 WBC (Bld) 10.0 % 0.0 - 10.0 % [facility] Neutrophils (Bld) [#/Vol] 1.4 10*3/uL 1.4 - 6.5 10*3/uL [facility] Neutrophils/100 WBC (Bld) 53.1 % 37.0 - 75.0 % [facility] Platelet mean volume (Bld) [Entitic vol] 8.5 fL [facility] Platelets (Bld) [#/Vol] 101 10*3/uL Low 130 - 400 10*3/uL [facility] RBC (Bld) [#/Vol] 4.27 10*6/uL 4.0 - 6.1 10*6/uL [facility] WBC (Bld) [#/Vol] 2.6 10*3/uL Low 3.6 - 11.0 10*3/uL [facility] Laboratory - Microbiology an d Antimicrobial susceptibilityon 03-22-2023 Bacteria identified Cx Nom (Unsp spec) NO GROWTH 5 DAYS [facility] Comment on above: [place] [id number] Laboratory - Miscellaneous t estson 03-22-2023 Service comment (Unsp spec) [Interp] 03/22/2023 [facility] Comment on above: FINAL MAGNESIUMon 03-22-2023 Magnesium [Mass/Vol] 2.1 mg/dL Normal 1.6-2.3 [facility] Comment on above: Result Comment: Test ing performed at [place] [address] Performed By: #### M G, ACBC, RENF, LIVR #### [place] [address] Magnesium [Mass/Vol] 2.1 mg/dL [facility] Comment on above: Testing performed at [place] [address] No Panel Informationon 03-22 [facility] SPECIMEN DESCRIPTION PERIPHERAL BLOOD DRAW [facility] RENAL FUNCTION PANELon 03-22 Albumin [Mass/Vol] 3.2 G/dl Low 3.5 - 5.0 G/dl [facility] Calcium [Mass/Vol] 7.9 mg/dL Low [facility] Chloride [Moles/Vol] 103 mmol/L [facility] Comment on above: Please note: Triglyc eride levels of 600mg/dL or higher may positively bias chloride results by approximately 2.1 mmol CO2 [Moles/Vol] 31 mmol/L High [facility] Creatinine [Mass/Vol] 0.70 mg/dL [facility] GFR COMMENT Average GFR for 50-5 9 years old = 93. [facility] Comment on above: Chronic Kidney disea se, GFR = <60. Kidney failure, GFR = <15. The GFR estimate is not adjusted for extreme body surface area or acute process, nor has it been validated for women or ethnic groups other than and . Testing performed at [place] [address] GFR/1.73 sq M.predicted among blacks MDRD (S/P/Bld) [Vol rate/Area] 150 mL/min/{1.73_m2} ml/min/1.73s q.m [facility] GFR/1.73 sq M.predicted among non-blacks MDRD (S/P/Bld) [Vol rate/Area] 124 mL/min/{1.73_m2} ml/min/1.73s q.m [facility] Glucose post fast [Mass/Vol] 102 mg/dL [facility] Comment on above: NORMAL <100 mg/dL PREDIABETES 101-126 mg/dL DIABETES 126 mg/dL or higher Interpretation and review of laboratory results Abnormal [facility] Phosphate [Mass/Vol] 3.5 mg/dL [facility] Potassium [Moles/Vol] 4.4 mmol/L [facility] Sodium [Moles/Vol] 137 mmol/L [facility] Urea nitrogen [Mass/Vol] 27 mg/dL [facility] RENAL PANEL,FASTINGon 2022 ALBUMIN 3.2 G/dl Low 3.5-5.0 [facility] Comment on above: Performed By: #### Micheal Miller, TILA, RENF, LIVR #### Testing performed at [place] [id number] Calcium [Mass/Vol] 7.9 mg/dL Low 8.4-10.2 [facility] Comment on above: Performed By: #### Micheal Miller, ACBC, RENF, LIVR #### Testing performed at [address] [address] Chloride [Moles/Vol] 103 mmol/L Normal 98-107 [facility] Comment on above: Result Comment: Krystian boyd note: Triglyceride levels of 600mg/dL or higher may positively bias chloride results by approximately 2.1 mmol Performed By: #### Micheal Miller, ACBC, RENF, LIVR #### Testing performed at [address] [address] CO2 [Moles/Vol] 31 mmol/L High 22-30 [facility] Comment on above: Performed By: #### Micheal Miller, ACBC, RENF, LIVR #### Testing performed at [address] [address] Creatinine [Mass/Vol] 0.70 mg/dL Normal 0.7-1.2 [facility] Comment on above: Performed By: #### Micheal Miller, ACBC, RENF, LIVR #### Testing performed at [place] [id number] EST. GFR, 150 ml/min/1.73sq.m [facility] Comment on above: Performed By: #### M Abbi, ACBC, RENF, LIVR #### [place] [address] EST. GFR,Non 124 ml/min/1.73sq.m [facility] Comment on above: Performed By: #### M Abbi, ACBC, RENF, LIVR #### [place] [address] GFR Information Average GFR for 50-5 9 years old = 93. Normal [facility] Comment on above: Result Comment: Security [employer] Compliance Analyst kaveh Kidney disease, GFR = <60. Kidney failure, GFR = <15. The GFR estimate is not adjusted for extreme body surface area or acute process, nor has it been validated for women or ethnic groups other than and . Testing performed at [place] [address] Performed By: #### M Abbi ACBC, RENF, LIVR #### [place] [address] Glucose [Mass/Vol] 102 mg/dL High 70-100 [facility] Comment on above: Result Comment: NORMAL <100 mg/dL PREDIABETES 101-126 mg/dL DIABETES 126 mg/dL or higher Performed By: #### M Abbi ACBC, RENF, LIVR #### [place] [address] PHOSPHOROUS 3.5 MG/DL Normal 2.5-4.5 [facility] Comment on above: Performed By: #### M Abbi, ACBC, RENF, LIVR #### [place] [address] Potassium [Moles/Vol] 4.4 mmol/L Normal 3.5-5.1 [facility] Comment on above: Performed By: #### M Abbi, ACBC, RENF, LIVR #### Testing performed at [address] [address] Sodium [Moles/Vol] 137 mmol/L Normal 137-145 [facility] Comment on above: Performed By: #### M G, ACBC, RENF, LIVR #### Testing performed at [address] [address] Urea nitrogen [Mass/Vol] 27 mg/dL High 7-20 [facility] Comment on above: Performed By: #### M G, ACBC, RENF, LIVR #### Testing performed at [address] [address] CBCon 03-21-2023 Basophils/100 WBC (Bld) 1 % Normal 0-2.0 [facility] Comment on above: Performed By: #### M G, ACBC, RENF, LIVR #### Testing performed at [place] [id number] DTYPE MANUAL DIFF Normal [facility] Comment on above: Performed By: #### M G, ACBC, RENF, LIVR #### Testing performed at [address] [address] Eosinophils/100 WBC (Bld) 5 % Normal 0-7.0 [facility] Comment on above: Performed By: #### M G, ACBC, RENF, LIVR #### Testing performed at [address] [address] Lymphocytes/100 WBC (Bld) 30 % Normal 20.5-51.1 [facility] Comment on above: Performed By: #### M G, ACBC, RENF, LIVR #### Testing performed at [address] [address] Monocytes/100 WBC (Bld) 6 % Normal 1.7-10.0 [facility] Comment on above: Performed By: #### M G, ACBC, RENF, LIVR #### Testing performed at [address] [address] Neutrophils/100 WBC (Bld) 58 % Normal 42.2-75.2 [facility] Comment on above: Performed By: #### Micheal Miller, TILA, WILNER, LIVR #### [place] [address] PLATELET COMMENT DECREASED Normal [facility] Comment on above: Result Comment: Test ing performed at [place] [address] Performed By: #### Micheal Miller, TILA, WILNER, LIVR #### [place] [address] RBC morphology finding Nom (Bld) 1+ Normal [facility] Comment on above: Result Comment: MICR OCYTOSIS Performed By: #### Micheal Miller, TILA, WILNER, LIVR #### [place] [address] Erythrocyte distribution width (RBC) [Ratio] 16.4 % High 11.5-14.5 [facility] Comment on above: Performed By: #### Micheal Miller, TILA, SANDRAF, LIVR #### [place] [address] Hematocrit (Bld) [Volume fraction] 29.6 % Low 42.0-52.0 [facility] Comment on above: Performed By: #### Micheal Miller, TILA, SANDRAF, LIVR #### [place] [address] Hemoglobin (Bld) [Mass/Vol] 9.6 g/dL Low 14.0-18.0 [facility] Comment on above: Performed By: #### Micheal Miller, TILA, RENF, LIVR #### [place] [address] MCH (RBC) [Entitic mass] 23.0 pg Low 26.0-35.0 [facility] Comment on above: Performed By: #### Micheal Miller, ACBC, RENF, LIVR #### [place] [address] MCHC (RBC) [Mass/Vol] 32.3 g/dL Normal 27.0-37.0 [facility] Comment on above: Performed By: #### TILA Gold RENF, LIVR #### [place] [address] MCV (RBC) [Entitic vol] 71.2 fL Low 80.0-100.0 [facility] Comment on above: Performed By: #### Micheal Miller, WILNER ADORNO, LIVR #### [place] [address] Platelet mean volume (Bld) [Entitic vol] 8.1 fL Normal 7.4-11.0 [facility] Comment on above: Result Comment: Test ing performed at [place] [address] Performed By: #### TILA Gold RENF, LIVR #### [place] [address] Platelets (Bld) [#/Vol] 95 10*3/uL Low 130-400 [facility] Comment on above: Performed By: #### TILA Gold RENF, LIVR #### [place] [address] RBC (Bld) [#/Vol] 4.16 10*6/uL Normal 4.0-6.1 [facility] Comment on above: Performed By: #### TILA Gold RENF, LIVR #### [place] [address] WBC (Bld) [#/Vol] 2.4 10*3/uL Low 3.6-11.0 [facility] Comment on above: Performed By: #### Micheal Miller, WILNER ADORNO, LIVR #### [place] [address] CBC, EDIF, PLATELETon 2022 Basophils/100 WBC (Bld) 1 % 0 - 2.0 % [facility] Differential cell count method Nom (Bld) MANUAL DIFF % [facility] Eosinophils/100 WBC (Bld) 5 % 0 - 7.0 % [facility] Erythrocyte distribution width (RBC) [Ratio] 16.4 % High 11.5 - 14.5 % [facility] Hematocrit (Bld) [Volume fraction] 29.6 % Low 42.0 - 52.0 % [facility] Hemoglobin (Bld) [Mass/Vol] 9.6 g/dL Low [facility] Interpretation and review of laboratory results Abnormal [facility] Lymphocytes/100 WBC (Bld) 30 % 20.5 - 51.1 % [facility] MCH (RBC) [Entitic mass] 23.0 pg Low 26.0 - 35.0 PG [facility] MCHC (RBC) [Mass/Vol] 32.3 g/dL [facility] MCV (RBC) [Entitic vol] 71.2 fL Low [facility] Monocytes/100 WBC (Bld) 6 % 1.7 - 10.0 % [facility] Morphology Julián (Bld) [Interp] 1+ [facility] Comment on above: MICROCYTOSIS Neutrophils/100 WBC (Bld) 58 % 42.2 - 75.2 % [facility] Platelet mean volume (Bld) [Entitic vol] 8.1 fL [facility] Platelet morphology finding Nom (Bld) DECREASED [facility] Comment on above: Testing performed at [place], [place] [address] Platelets (Bld) [#/Vol] 95 10*3/uL Low 130 - 400 10*3/uL [facility] RBC (Bld) [#/Vol] 4.16 10*6/uL 4.0 - 6.1 10*6/uL [facility] WBC (Bld) [#/Vol] 2.4 10*3/uL Low 3.6 - 11.0 10*3/uL [facility] HEPATIC FUNCTION PANELon Albumin [Mass/Vol] 3.2 g/dL [facility] ALP [Catalytic activity/Vol] 91 U/L [facility] ALT [Catalytic activity/Vol] 13 U/L NINF [facility] Comment on above: Testing performed at [place], [place] [address] AST [Catalytic activity/Vol] 26 U/L [facility] Bilirubin [Mass/Vol] 0.9 mg/dL [facility] Bilirubin.direct [Mass/Vol] 0.3 mg/dL [facility] Protein [Mass/Vol] 7.1 g/dL [facility] LIVER PANELon 03-21-2023 Albumin [Mass/Vol] 3.2 g/dL Normal 2.9-5.3 [facility] Comment on above: Performed By: #### Micheal Miller, TILA, SANDRAF, LIVR #### [place] [address] ALP [Catalytic activity/Vol] 91 U/L Normal 38-126 [facility] Comment on above: Performed By: #### Micheal Miller, TILA, SANDRAF, LIVR #### [place] [address] ALT [Catalytic activity/Vol] 13 U/L Normal <50 [facility] Comment on above: Result Comment: Test ing performed at [place] [address] Performed By: #### Micheal Miller, TILA, SANDRAF, LIVR #### [place] [address] AST [Catalytic activity/Vol] 26 U/L Normal 17-59 [facility] Comment on above: Performed By: #### Micheal Miller, TILA, RENF, LIVR #### Testing performed at [place] [id number] Bilirubin [Mass/Vol] 0.9 mg/dL Normal 0.2-1.3 [facility] Comment on above: Performed By: #### Micheal Miller, DAVIDBC, RENF, LIVR #### [place] [address] Bilirubin.indirect [Mass/Vol] 0.3 mg/dL Normal 0-0.4 [facility] Comment on above: Performed By: #### Micheal Miller, ACBC, RENF, LIVR #### [place] [address] Protein [Mass/Vol] 7.1 g/dL Normal 6.3-8.2 [facility] Comment on above: Performed By: #### M G, ACBC, RENF, LIVR #### Testing performed at [facility] [address] [place] [address] MAGNESIUMon 03-21-2023 Magnesium [Mass/Vol] 1.9 mg/dL Normal 1.6-2.3 [facility] Comment on above: Result Comment: Test ing performed at [place] [address] Performed By: #### M G, ACBC, RENF, LIVR #### Testing performed at [facility] [address] [place] [id number] Magnesium [Mass/Vol] 1.9 mg/dL [facility] Comment on above: Testing performed at [place] [address] No Panel Informationon 03-21 Raul Ng RN 03/21/2023 10:07 AM I have discussed the following issues with the ordering Clinician: Dr. Hayden Procedure explained to patient. Anatomical distortion to interfere with placement:no known restriction Arm preference for venous access: Left Arm Patient is alert, cooperative, no distress, appears stated age Patient Teaching: Yes Family Teaching: No [facility] Protocol/Time Out Completed under Procedure Documentation PROCEDURE DETAILS: Midline Insertion Procedure Veins evaluated with ultrasound and appropriate vein selected. 1% Lidocaine used to anesthetize insertion site. Using standard sterile technique access was obtained. 3 [place], single lumen Midline placed in L Cephalic [...] not applicable 2. Perform timeout. Yes 3. Manager Testing: If enter sterile field, uses sterile gown and gloves, cap, mask/eye protection. N/A 4. Prep site with ChloraPrep for 30 sec minimum (if femoral 120 sec minimum). Yes 5. Sterile technique to drape patient from head to toe. Yes During the procedure, did the clinician 1. Maintain a sterile field. Yes 2. Obtain a qualified underground truck operator IF 3 unsuccessful sticks. (except if [...] [X] Tray table within reach. Lot number: [id number] Expiration Date: 2023-10-20 Arm circumference: 29 cm Internal length: 11 cm External length: 0 cm [facility] Radiology Study observation (narrative) [facility] RENAL FUNCTION PANELon 03-21 Albumin [Mass/Vol] 3.2 G/dl Low 3.5 - 5.0 G/dl [facility] Calcium [Mass/Vol] 7.5 mg/dL Low [facility] Chloride [Moles/Vol] 101 mmol/L [facility] Comment on above: Please note: Triglyc eride levels of 600mg/dL or higher may positively bias chloride results by approximately 2.1 mmol CO2 [Moles/Vol] 29 mmol/L [facility] Creatinine [Mass/Vol] 0.60 mg/dL Low [facility] GFR COMMENT Average GFR for 50-5 9 years old = 93. [facility] Comment on above: Chronic Kidney disea se, GFR = <60. Kidney failure, GFR = <15. The GFR estimate is not adjusted for extreme body surface area or acute process, nor has it been validated for women or ethnic groups other than and . Testing performed at [place], [place] [address] GFR/1.73 sq M.predicted among blacks MDRD (S/P/Bld) [Vol rate/Area] 179 mL/min/{1.73_m2} ml/min/1.73s q.m [facility] GFR/1.73 sq M.predicted among non-blacks MDRD (S/P/Bld) [Vol rate/Area] 148 mL/min/{1.73_m2} ml/min/1.73s q.m [facility] Glucose post fast [Mass/Vol] 109 mg/dL High [facility] Comment on above: NORMAL <100 mg/dL PREDIABETES 101-126 mg/dL DIABETES 126 mg/dL or higher Interpretation and review of laboratory results Abnormal [facility] Phosphate [Mass/Vol] 3.5 mg/dL [facility] Potassium [Moles/Vol] 4.4 mmol/L [facility] Sodium [Moles/Vol] 135 mmol/L Low [facility] Urea nitrogen [Mass/Vol] 28 mg/dL High [facility] RENAL PANEL,FASTINGon 2022 ALBUMIN 3.2 G/dl Low 3.5-5.0 [facility] Comment on above: Performed By: #### Micheal Miller, TILA, RENF, LIVR #### Testing performed at [address] [address] Calcium [Mass/Vol] 7.5 mg/dL Low 8.4-10.2 [facility] Comment on above: Performed By: #### Micheal Miller, TILA, SANDRAF, LIVR #### Testing performed at [address] [address] Chloride [Moles/Vol] 101 mmol/L Normal 98-107 [facility] Comment on above: Result Comment: Krystian boyd note: Triglyceride levels of 600mg/dL or higher may positively bias chloride results by approximately 2.1 mmol Performed By: #### Micheal Miller, TILA, RENF, LIVR #### Testing performed at [address] [address] CO2 [Moles/Vol] 29 mmol/L Normal 22-30 [facility] Comment on above: Performed By: #### Micheal Miller, TILA, RENF, LIVR #### Testing performed at [address] [address] Creatinine [Mass/Vol] 0.60 mg/dL Low 0.7-1.2 [facility] Comment on above: Performed By: #### TILA Gold, SANDRAF, LIVR #### [place] [address] EST. GFR, 179 ml/min/1.73sq.m Normal [facility] Comment on above: Performed By: #### Micheal Miller, TILA, RENF, LIVR #### [place] [address] EST. GFR,Non 148 ml/min/1.73sq.m [facility] Comment on above: Performed By: #### TILA Gold, SANDRAF, LIVR #### [place] [address] GFR Information Average GFR for 50-5 9 years old = 93. Normal [facility] Comment on above: Result Comment: Security And Compliance Analyst kaveh Kidney disease, GFR = <60. Kidney failure, GFR = <15. The GFR estimate is not adjusted for extreme body surface area or acute process, nor has it been validated for women or ethnic groups other than and . Testing performed at [place] [address] Performed By: #### TILA Gold, RENF, LIVR #### [place] [address] Glucose [Mass/Vol] 109 mg/dL High 70-100 [facility] Comment on above: Result Comment: NORMAL <100 mg/dL PREDIABETES 101-126 mg/dL DIABETES 126 mg/dL or higher Performed By: #### Micheal Miller, TILA, RENF, LIVR #### [place] [address] PHOSPHOROUS 3.5 MG/DL Normal 2.5-4.5 [facility] Comment on above: Performed By: #### Micheal Miller, DAVIDBC, RENF, LIVR #### [place] [address] Potassium [Moles/Vol] 4.4 mmol/L Normal 3.5-5.1 [facility] Comment on above: Performed By: #### TILA Gold RENF, LIVR #### Testing performed at [address] [address] Sodium [Moles/Vol] 135 mmol/L Low 137-145 [facility] Comment on above: Performed By: #### TILA Gold RENF, LIVR #### Testing performed at [place] [id number] Urea nitrogen [Mass/Vol] 28 mg/dL High 7-20 [facility] Comment on above: Performed By: #### TILA Gold RENF, LIVR #### Testing performed at [place] [id number] CBCon 03-20-2023 DTYPE MANUAL DIFF Normal [facility] Comment on above: Performed By: #### WILNER Gold ACBC #### Testing performed at [place] [id number] Eosinophils/100 WBC (Bld) 5 % Normal 0-7.0 [facility] Comment on above: Performed By: #### WILNER Gold ACBC #### Testing performed at [place] [id number] Lymphocytes/100 WBC (Bld) 38 % Normal 20.5-51.1 [facility] Comment on above: Performed By: #### WILNER Gold ACBC #### Testing performed at [address] [address] Monocytes/100 WBC (Bld) 8 % Normal 1.7-10.0 [facility] Comment on above: Performed By: #### WILNER Gold ACBC #### Testing performed at [address] [address] Neutrophils/100 WBC (Bld) 49 % Normal 42.2-75.2 [facility] Comment on above: Performed By: #### WILNER Gold ACBC #### Testing performed at [place] [id number] PLATELET COMMENT DECREASED Normal [facility] Comment on above: Result Comment: Test ing performed at [place] [address] Performed By: #### WILNER Gold ACBC #### [place] [address] RBC morphology finding Nom (Bld) 1+ Normal [facility] Comment on above: Result Comment: MICR OCYTOSIS 1+ POIKILOCYTE Performed By: #### WILNER Gold ACBC #### [place] [address] Erythrocyte distribution width (RBC) [Ratio] 15.9 % High 11.5-14.5 [facility] Comment on above: Performed By: #### WILNER Gold ACBC #### [place] [address] Hematocrit (Bld) [Volume fraction] 30.0 % Low 42.0-52.0 [facility] Comment on above: Performed By: #### WILNER Gold ACBC #### [place] [address] Hemoglobin (Bld) [Mass/Vol] 9.8 g/dL Low 14.0-18.0 [facility] Comment on above: Performed By: #### WILNER Gold ACBC #### [place] [address] MCH (RBC) [Entitic mass] 23.2 pg Low 26.0-35.0 [facility] Comment on above: Performed By: #### WILNER Gold ACBC #### [place] [address] MCHC (RBC) [Mass/Vol] 32.6 g/dL Normal 27.0-37.0 [facility] Comment on above: Performed By: #### WILNER Gold ACBC #### [place] [address] MCV (RBC) [Entitic vol] 71.0 fL Low 80.0-100.0 [facility] Comment on above: Performed By: ###WILNER Teran ACBC #### [place] [address] Platelet mean volume (Bld) [Entitic vol] 8.5 fL Normal 7.4-11.0 [facility] Comment on above: Result Comment: Test ing performed at [place] [address] Performed By: #### WILNER Gold ACBC #### [place] [address] Platelets (Bld) [#/Vol] 94 10*3/uL Low 130-400 [facility] Comment on above: Performed By: ###WILNER Teran ACBC #### [place] [address] RBC (Bld) [#/Vol] 4.23 10*6/uL Normal 4.0-6.1 [facility] Comment on above: Performed By: #### WILNER Gold ACBC #### [place] [address] WBC (Bld) [#/Vol] 2.1 10*3/uL Low 3.6-11.0 [facility] Comment on above: Performed By: ###WILNER Teran ACBC #### [place] [address] CBC, EDIF, PLATELETon 2022 Differential cell count method Nom (Bld) MANUAL DIFF % [facility] Eosinophils/100 WBC (Bld) 5 % 0 - 7.0 % [facility] Erythrocyte distribution width (RBC) [Ratio] 15.9 % High 11.5 - 14.5 % [facility] Hematocrit (Bld) [Volume fraction] 30.0 % Low 42.0 - 52.0 % [facility] Hemoglobin (Bld) [Mass/Vol] 9.8 g/dL Low [facility] Interpretation and review of laboratory results Abnormal [facility] Lymphocytes/100 WBC (Bld) 38 % 20.5 - 51.1 % [facility] MCH (RBC) [Entitic mass] 23.2 pg Low 26.0 - 35.0 PG [facility] MCHC (RBC) [Mass/Vol] 32.6 g/dL [facility] MCV (RBC) [Entitic vol] 71.0 fL Low [facility] Monocytes/100 WBC (Bld) 8 % 1.7 - 10.0 % [facility] Morphology Julián (Bld) [Interp] 1+ [facility] Comment on above: MICROCYTOSIS 1+ POIKILOCYTE Neutrophils/100 WBC (Bld) 49 % 42.2 - 75.2 % [facility] Platelet mean volume (Bld) [Entitic vol] 8.5 fL [facility] Platelet morphology finding Nom (Bld) DECREASED [facility] Comment on above: Testing performed at [place] [address] Platelets (Bld) [#/Vol] 94 10*3/uL Low 130 - 400 10*3/uL [facility] RBC (Bld) [#/Vol] 4.23 10*6/uL 4.0 - 6.1 10*6/uL [facility] WBC (Bld) [#/Vol] 2.1 10*3/uL Low 3.6 - 11.0 10*3/uL [facility] CULTURE WOUNDon 03-20-2023 Bacteria identified Cx Nom (Unsp spec) NORMAL SKIN SOBEIDA PRESENT [facility] Comment on above: MODERATE GROWTH Testing performed at [place] [address] COMMENT RIGHT FOOT [facility] Microscopic observation Gram stain Nom (Unsp spec) FEW [facility] Comment on above: WBC'S SEEN FEW GRAM POSITIVE COCCI FEW SQUAMOUS EPITHELIAL CELLS Service comment (Unsp spec) [Interp] 03/20/2023 [facility] Comment on above: FINAL SPECIMEN DESCRIPTION RIGHT FOOT [facility] Bacteria identified Cx Nom (Unsp spec) STAPHYLOCOCCUS HAEMOLYTICUS A [facility] Comment on above: MODERATE GROWTH ISOLATE IS A PROBABLE SKIN CONTAMINANT Testing performed at [place] [address] COMMENT RIGHT LOWER LEG [facility] Microscopic observation Gram stain Nom (Unsp spec) NO [facility] Comment on above: WBC'S SEEN FEW SQUAMOUS EPITHELIAL CELLS NO ORGANISMS SEEN ORGANISM IDENTIFIED STAPHYLOCOCCUS HAEMOLYTICUS [facility] Service comment (Unsp spec) [Interp] 03/20/2023 [facility] Comment on above: FINAL SPECIMEN DESCRIPTION RIGHT LEG [facility] MAGNESIUMon 03-20-2023 Magnesium [Mass/Vol] 2.0 mg/dL Normal 1.6-2.3 [facility] Comment on above: Result Comment: Test ing performed at [place] [address] Performed By: #### M WILNER Miller ACBC #### [place] [address] Magnesium [Mass/Vol] 2.0 mg/dL [facility] Comment on above: Testing performed at [place] [address] No Panel Informationon 03-20 [facility] RENAL FUNCTION PANELon 03-20 Albumin [Mass/Vol] 2.9 G/dl Low 3.5 - 5.0 G/dl [facility] Calcium [Mass/Vol] 7.3 mg/dL Low [facility] Chloride [Moles/Vol] 98 mmol/L [facility] Comment on above: Please note: Triglyc eride levels of 600mg/dL or higher may positively bias chloride results by approximately 2.1 mmol CO2 [Moles/Vol] 33 mmol/L High [facility] Creatinine [Mass/Vol] 0.70 mg/dL [facility] GFR COMMENT Average GFR for 50-5 9 years old = 93. [facility] Comment on above: Chronic Kidney disea se, GFR = <60. Kidney failure, GFR = <15. The GFR estimate is not adjusted for extreme body surface area or acute process, nor has it been validated for women or ethnic groups other than and . Testing performed at [place] [address] GFR/1.73 sq M.predicted among blacks MDRD (S/P/Bld) [Vol rate/Area] 150 mL/min/{1.73_m2} ml/min/1.73s q.m [facility] GFR/1.73 sq M.predicted among non-blacks MDRD (S/P/Bld) [Vol rate/Area] 124 mL/min/{1.73_m2} ml/min/1.73s q.m [facility] Glucose post fast [Mass/Vol] 120 mg/dL High [facility] Comment on above: NORMAL <100 mg/dL PREDIABETES 101-126 mg/dL DIABETES 126 mg/dL or higher Interpretation and review of laboratory results Abnormal [facility] Phosphate [Mass/Vol] 3.2 mg/dL [facility] Potassium [Moles/Vol] 4.3 mmol/L [facility] Sodium [Moles/Vol] 134 mmol/L Low [facility] Urea nitrogen [Mass/Vol] 26 mg/dL High [facility] RENAL PANEL,FASTINGon 03-20- 2022 ALBUMIN 2.9 G/dl Low 3.5-5.0 [facility] Comment on above: Performed By: #### WILNER Gold ACBC #### Testing performed at [address] [address] Calcium [Mass/Vol] 7.3 mg/dL Low 8.4-10.2 [facility] Comment on above: Performed By: #### WILNER Gold ACBC #### Testing performed at [address] [address] Chloride [Moles/Vol] 98 mmol/L Normal 98-107 [facility] Comment on above: Result Comment: Krystian boyd note: Triglyceride levels of 600mg/dL or higher may positively bias chloride results by approximately 2.1 mmol Performed By: #### WILNER Gold ACBC #### Testing performed at [address] [address] CO2 [Moles/Vol] 33 mmol/L High 22-30 [facility] Comment on above: Performed By: #### WILNER Gold ACBC #### Testing performed at [address] [address] Creatinine [Mass/Vol] 0.70 mg/dL Normal 0.7-1.2 [facility] Comment on above: Performed By: #### WILNER Gold ACBC #### [place] [address] EST. GFR, 150 ml/min/1.73sq.m Normal [facility] Comment on above: Performed By: #### WILNER Gold ACBC #### [place] [address] EST. GFR,Non 124 ml/min/1.73sq.m Normal [facility] Comment on above: Performed By: #### WILNER Gold ACBC #### [place] [address] GFR Information Average GFR for 50-5 9 years old = 93. Normal [facility] Comment on above: Result Comment: Security And Compliance Analyst kaveh Kidney disease, GFR = <60. Kidney failure, GFR = <15. The GFR estimate is not adjusted for extreme body surface area or acute process, nor has it been validated for women or ethnic groups other than and . Testing performed at [place] [address] Performed By: #### WILNER Gold ACBC #### [place] [address] Glucose [Mass/Vol] 120 mg/dL High 70-100 [facility] Comment on above: Result Comment: NORMAL <100 mg/dL PREDIABETES 101-126 mg/dL DIABETES 126 mg/dL or higher Performed By: #### WILNER Gold ACBC #### [place] [address] PHOSPHOROUS 3.2 MG/DL Normal 2.5-4.5 [facility] Comment on above: Performed By: #### WILNER Gold ACBC #### [place] [address] Potassium [Moles/Vol] 4.3 mmol/L Normal 3.5-5.1 [facility] Comment on above: Performed By: #### WILNER Gold ACBC #### Testing performed at [place] [id number] Sodium [Moles/Vol] 134 mmol/L Low 137-145 [facility] Comment on above: Performed By: #### WILNER Gold ACBC #### [place] [address] Urea nitrogen [Mass/Vol] 26 mg/dL High 7-20 [facility] Comment on above: Performed By: #### WILNER Gold ACBC #### [place] [address] WOUND CULTUREon 03-20-2023 WOUND CULTURE SPECIMEN DESCRIPTION [...] * * Result Note: Testing performed at [place] [address] * REPORT STATUS 03/20/2023 * Result Note: FINAL * ORGANISM STAPHYLOCOCCUS HAEMOLYTICUS * Result Note: STAPHYLOCOCCUS HAEMOLYTICUS * METHOD LIV CLINDAMYCIN >=8 RESISTANT ERYTHROMYCIN >=8 RESISTANT GENTAMICIN >=16 RESISTANT PENICILLIN G >=0.5 RESISTANT RIFAMPIN <=0.5 SUSCEPTIBLE TETRACYCLINE >=16 RESISTANT TRIMETH-SULFA >=320 RESISTANT VANCOMYCIN 2 SUSCEPTIBLE LEVOFLOXACIN >=8 RESISTANT OXACILLIN >=4 RESISTANT LINEZOLID 2 SUSCEPTIBLE INDUCIBLE CLINDAMYCIN RESISTANCE NEGATIVE Normal [facility] Comment on above: Performed By: #### TILA Gold RENF, LIVR #### [place] [address] CBCon 03-19-2023 Basophils/100 WBC (Bld) 1 % Normal 0.0-2.0 [facility] Comment on above: Result Comment: WENCESLAO ECTED ON 03/19 AT 0728: PREVIOUSLY REPORTED 0.9 Performed By: #### R ENCathy ACBC, MG #### [place] [address] Eosinophils/100 WBC (Bld) 12 % High 0.0-11.0 [facility] Comment on above: Result Comment: WENCESLAO ECTED ON 03/19 AT 0728: PREVIOUSLY REPORTED 12.2 Performed By: #### R DANIEL ACBC, MG #### [place] [address] Lymphocytes/100 WBC (Bld) 31 % Normal 20.0-55.0 [facility] Comment on above: Result Comment: WENCESLAO ECTED ON 03/19 AT 0728: PREVIOUSLY REPORTED 31.2 Performed By: #### R DAVID SANCHEZBC, MG #### [place] [address] Monocytes/100 WBC (Bld) 11 % High 0.0-10.0 [facility] Comment on above: Result Comment: WENCESLAO ECTED ON 03/19 AT 0728: PREVIOUSLY REPORTED 10.9 Performed By: #### R DAVID SANCHEZBC, MG #### [place] [address] Neutrophils/100 WBC (Bld) 45 % Normal 37.0-75.0 [facility] Comment on above: Result Comment: WENCESLAO ECTED ON 03/19 AT 0728: PREVIOUSLY REPORTED 44.8 Performed By: #### R DANIEL ACBC, MG #### [place] [address] PLATELET COMMENT DECREASED Normal [facility] Comment on above: Result Comment: Test ing performed at [place] [address] Performed By: #### R DAVID SANCHEZBC, MG #### [place] [address] RBC morphology finding Nom (Bld) 1+ Normal [facility] Comment on above: Result Comment: MICR OCYTOSIS 1+ HYPOCHROMIA Performed By: #### R ENF ACBC, MG #### [place] [address] ABSOLUTE BAS 0.0 10*3/uL Normal 0.0-0.2 [facility] Comment on above: Result Comment: Test ing performed at [place] [address] Performed By: #### R ENF ACBC, MG #### [place] [address] ABSOLUTE EOS 0.3 10*3/uL Normal 0.0-0.7 [facility] Comment on above: Performed By: #### R ENF ACBC, MG #### [place] [address] ABSOLUTE NEUTROPHIL COUNT 1.2 10*3/uL Low 1.4-6.5 [facility] Comment on above: Performed By: #### R ENF ACBC, MG #### [place] [address] DTYPE AUTO DIFF Normal [facility] Comment on above: Performed By: #### R ENF ACBC, MG #### [place] [address] Lymphocytes (Bld) [#/Vol] 0.8 10*3/uL Low 1.2-3.4 [facility] Comment on above: Performed By: #### R ENF ACBC, MG #### [place] [address] Monocytes (Bld) [#/Vol] 0.3 10*3/uL Normal 0.0-0.7 [facility] Comment on above: Performed By: #### R ENF ACBC, MG #### [place] [address] Erythrocyte distribution width (RBC) [Ratio] 16.1 % High 11.5-14.5 [facility] Comment on above: Performed By: #### R ENF ACBC, MG #### [place] [address] Hematocrit (Bld) [Volume fraction] 28.9 % Low 42.0-52.0 [facility] Comment on above: Performed By: #### TILA CLIFTON, MG #### [place] [address] Hemoglobin (Bld) [Mass/Vol] 9.3 g/dL Low 14.0-18.0 [facility] Comment on above: Performed By: #### R ENDAVID MorganBC, MG #### [place] [address] MCH (RBC) [Entitic mass] 23.0 pg Low 26.0-35.0 [facility] Comment on above: Performed By: #### DAVID CLIFTONBC, MG #### [place] [address] MCHC (RBC) [Mass/Vol] 32.2 g/dL Normal 27.0-37.0 [facility] Comment on above: Performed By: #### R TILA SANCHEZ, MG #### [place] [address] MCV (RBC) [Entitic vol] 71.4 fL Low 80.0-100.0 [facility] Comment on above: Performed By: #### R TILA SANCHEZ, MG #### [place] [address] Platelet mean volume (Bld) [Entitic vol] 8.4 fL Normal 7.4-11.0 [facility] Comment on above: Result Comment: Test ing performed at [place] [address] Performed By: #### TILA CLIFTON, MG #### [place] [address] Platelets (Bld) [#/Vol] 87 10*3/uL Low 130-400 [facility] Comment on above: Performed By: #### R ENDAVID MorganBC, MG #### Testing performed at [address] [place] [address] RBC (Bld) [#/Vol] 4.05 10*6/uL Normal 4.0-6.1 [facility] Comment on above: Performed By: #### R ENF, ACBC, MG #### Testing performed at [address] [address] WBC (Bld) [#/Vol] 2.6 10*3/uL Low 3.6-11.0 [facility] Comment on above: Performed By: #### R ENF, ACBC, MG #### Testing performed at [address] [address] CBC, EDIF, PLATELETon 2022 ABSOLUTE BASOPHIL COUNT 0.0 10*3/uL 0.0 - 0.2 10*3/uL [facility] Basophils/100 WBC (Bld) 1 % 0.0 - 2.0 % [facility] Comment on above: CORRECTED ON 03/19 A T 0728: PREVIOUSLY REPORTED 0.9 Differential cell count method Nom (Bld) AUTO DIFF % [facility] Eosinophils (Bld) [#/Vol] 0.3 10*3/uL 0.0 - 0.7 10*3/uL [facility] Eosinophils/100 WBC (Bld) 12 % High 0.0 - 11.0 % [facility] Comment on above: CORRECTED ON 03/19 A T 0728: PREVIOUSLY REPORTED 12.2 Erythrocyte distribution width (RBC) [Ratio] 16.1 % High 11.5 - 14.5 % [facility] Hematocrit (Bld) [Volume fraction] 28.9 % Low 42.0 - 52.0 % [facility] Hemoglobin (Bld) [Mass/Vol] 9.3 g/dL Low [facility] Interpretation and review of laboratory results Abnormal [facility] Lymphocytes (Bld) [#/Vol] 0.8 10*3/uL Low 1.2 - 3.4 10*3/uL [facility] Lymphocytes/100 WBC (Bld) 31 % 20.0 - 55.0 % [facility] Comment on above: CORRECTED ON 03/19 A T 0728: PREVIOUSLY REPORTED 31.2 MCH (RBC) [Entitic mass] 23.0 pg Low 26.0 - 35.0 PG [facility] MCHC (RBC) [Mass/Vol] 32.2 g/dL [facility] MCV (RBC) [Entitic vol] 71.4 fL Low [facility] Monocytes (Bld) [#/Vol] 0.3 10*3/uL 0.0 - 0.7 10*3/uL [facility] Monocytes/100 WBC (Bld) 11 % High 0.0 - 10.0 % [facility] Comment on above: CORRECTED ON 03/19 A T 0728: PREVIOUSLY REPORTED 10.9 Morphology Julián (Bld) [Interp] 1+ [facility] Comment on above: MICROCYTOSIS 1+ HYPOCHROMIA Neutrophils (Bld) [#/Vol] 1.2 10*3/uL Low 1.4 - 6.5 10*3/uL [facility] Neutrophils/100 WBC (Bld) 45 % 37.0 - 75.0 % [facility] Comment on above: CORRECTED ON 03/19 A T 0728: PREVIOUSLY REPORTED 44.8 Platelet mean volume (Bld) [Entitic vol] 8.4 fL [facility] Platelet morphology finding Nom (Bld) DECREASED [facility] Comment on above: Testing performed at [place] [address] Platelets (Bld) [#/Vol] 87 10*3/uL Low 130 - 400 10*3/uL [facility] RBC (Bld) [#/Vol] 4.05 10*6/uL 4.0 - 6.1 10*6/uL [facility] WBC (Bld) [#/Vol] 2.6 10*3/uL Low 3.6 - 11.0 10*3/uL [facility] MAGNESIUMon 03-19-2023 Magnesium [Mass/Vol] 1.9 mg/dL Normal 1.6-2.3 [facility] Comment on above: Result Comment: Test ing performed at [place], [place] [address] Performed By: #### R ENF, ACBC, MG #### [place] [address] Magnesium [Mass/Vol] 1.9 mg/dL [facility] Comment on above: Testing performed at [place], [place] [address] No Panel Informationon 03-19 [facility] RENAL FUNCTION PANELon 03-19 Albumin [Mass/Vol] 2.8 G/dl Low 3.5 - 5.0 G/dl [facility] Calcium [Mass/Vol] 7.4 mg/dL Low [facility] Chloride [Moles/Vol] 99 mmol/L [facility] Comment on above: Please note: Triglyc eride levels of 600mg/dL or higher may positively bias chloride results by approximately 2.1 mmol CO2 [Moles/Vol] 33 mmol/L High [facility] Creatinine [Mass/Vol] 0.70 mg/dL [facility] GFR COMMENT Average GFR for 50-5 9 years old = 93. [facility] Comment on above: Chronic Kidney disea se, GFR = <60. Kidney failure, GFR = <15. The GFR estimate is not adjusted for extreme body surface area or acute process, nor has it been validated for women or ethnic groups other than and . Testing performed at [place], [place] [address] GFR/1.73 sq M.predicted among blacks MDRD (S/P/Bld) [Vol rate/Area] 150 mL/min/{1.73_m2} ml/min/1.73s q.m [facility] GFR/1.73 sq M.predicted among non-blacks MDRD (S/P/Bld) [Vol rate/Area] 124 mL/min/{1.73_m2} ml/min/1.73s q.m [facility] Glucose post fast [Mass/Vol] 103 mg/dL High [facility] Comment on above: NORMAL <100 mg/dL PREDIABETES 101-126 mg/dL DIABETES 126 mg/dL or higher Interpretation and review of laboratory results Abnormal [facility] Phosphate [Mass/Vol] 3.3 mg/dL [facility] Potassium [Moles/Vol] 4.1 mmol/L [facility] Sodium [Moles/Vol] 135 mmol/L [facility] Urea nitrogen [Mass/Vol] 25 mg/dL High [facility] RENAL PANEL,FASTINGon 2022 ALBUMIN 2.8 G/dl Low 3.5-5.0 [facility] Comment on above: Performed By: #### R ENF, ACBC, MG #### [place] [address] Calcium [Mass/Vol] 7.4 mg/dL Low 8.4-10.2 [facility] Comment on above: Performed By: #### R ENF, ACBC, MG #### [place] [address] Chloride [Moles/Vol] 99 mmol/L Normal 98-107 [facility] Comment on above: Result Comment: Krystian boyd note: Triglyceride levels of 600mg/dL or higher may positively bias chloride results by approximately 2.1 mmol Performed By: #### R ENF, ACBC, MG #### [place] [address] CO2 [Moles/Vol] 33 mmol/L High 22-30 [facility] Comment on above: Performed By: #### R ENF, ACBC, MG #### [place] [address] Creatinine [Mass/Vol] 0.70 mg/dL Normal 0.7-1.2 [facility] Comment on above: Performed By: #### R ENF, ACBC, MG #### [place] [address] EST. GFR, 150 ml/min/1.73sq.m [facility] Comment on above: Performed By: #### R ENF, ACBC, MG #### [place] [address] EST. GFR,Non 124 ml/min/1.73sq.m [facility] Comment on above: Performed By: #### R ENF, ACBC, MG #### [place] [address] GFR Information Average GFR for 50-5 9 years old = 93. Normal [facility] Comment on above: Result Comment: Security And Compliance Analyst kaveh Kidney disease, GFR = <60. Kidney failure, GFR = <15. The GFR estimate is not adjusted for extreme body surface area or acute process, nor has it been validated for women or ethnic groups other than and . Testing performed at [place] [address] Performed By: #### R TILA SANCHEZ, MG #### [place] [address] Glucose [Mass/Vol] 103 mg/dL High 70-100 [facility] Comment on above: Result Comment: NORMAL <100 mg/dL PREDIABETES 101-126 mg/dL DIABETES 126 mg/dL or higher Performed By: #### R TILA SANCHEZ, MG #### [place] [address] PHOSPHOROUS 3.3 MG/DL Normal 2.5-4.5 [facility] Comment on above: Performed By: #### R DAVID SANCHEZBC, MG #### [place] [address] Potassium [Moles/Vol] 4.1 mmol/L Normal 3.5-5.1 [facility] Comment on above: Performed By: #### R TILA SANCHEZ, MG #### [place] [address] Sodium [Moles/Vol] 135 mmol/L Low 137-145 [facility] Comment on above: Performed By: #### R DANIEL ACBC, MG #### [place] [address] Urea nitrogen [Mass/Vol] 25 mg/dL High 7-20 [facility] Comment on above: Performed By: #### R DANIEL ACBC, MG #### [place] [address] CBCon 03-18-2023 Basophils/100 WBC (Bld) 1 % Normal 0.0-2.0 [facility] Comment on above: Performed By: #### M G, ACBC, RENF, LIVR #### [place] [address] DTYPE AUTO DIFF Normal [facility] Comment on above: Performed By: #### M G, ACBC, RENF, LIVR #### [place] [address] Eosinophils/100 WBC (Bld) 10 % Normal 0.0-11.0 [facility] Comment on above: Performed By: #### M G, ACBC, RENF, LIVR #### [place] [address] Lymphocytes/100 WBC (Bld) 27 % Normal 20.0-55.0 [facility] Comment on above: Performed By: #### M G, ACBC, RENF, LIVR #### [place] [address] Monocytes/100 WBC (Bld) 10 % Normal 0.0-10.0 [facility] Comment on above: Performed By: #### M G, ACBC, RENF, LIVR #### [place] [address] Neutrophils/100 WBC (Bld) 52 % Normal 37.0-75.0 [facility] Comment on above: Performed By: #### M G, ACBC, RENF, LIVR #### [place] [address] PLATELET COMMENT DECREASED Normal [facility] Comment on above: Result Comment: Test ing performed at [place] [address] Performed By: #### M G, ACBC, RENF, LIVR #### [place] [address] RBC morphology finding Nom (Bld) 1+ Normal [facility] Comment on above: Result Comment: MICR OCYTOSIS 1+ TARGET CELLS Performed By: #### M G, ACBC, RENF, LIVR #### Testing performed at [place] [id number] Erythrocyte distribution width (RBC) [Ratio] 16.4 % High 11.5-14.5 [facility] Comment on above: Performed By: #### TILA Gold RENF, LIVR #### [place] [address] Hematocrit (Bld) [Volume fraction] 30.5 % Low 42.0-52.0 [facility] Comment on above: Performed By: #### Micheal Miller, WILNER ADORNO, LIVR #### [place] [address] Hemoglobin (Bld) [Mass/Vol] 9.9 g/dL Low 14.0-18.0 [facility] Comment on above: Performed By: #### TILA Gold RENF, LIVR #### [place] [address] MCH (RBC) [Entitic mass] 23.0 pg Low 26.0-35.0 [facility] Comment on above: Performed By: #### TILA Gold RENF, LIVR #### [place] [address] MCHC (RBC) [Mass/Vol] 32.4 g/dL Normal 27.0-37.0 [facility] Comment on above: Performed By: #### TILA Gold RENF, LIVR #### [place] [address] MCV (RBC) [Entitic vol] 71.1 fL Low 80.0-100.0 [facility] Comment on above: Performed By: #### TILA Gold RENF, LIVR #### [place] [address] Platelet mean volume (Bld) [Entitic vol] 8.3 fL Normal 7.4-11.0 [facility] Comment on above: Result Comment: Test ing performed at [place] [address] Performed By: #### M G, ACBC, RENF, LIVR #### [place] [address] Platelets (Bld) [#/Vol] 81 10*3/uL Low 130-400 [facility] Comment on above: Performed By: #### Micheal Miller, TILA, SANDRAF, LIVR #### [place] [address] RBC (Bld) [#/Vol] 4.29 10*6/uL Normal 4.0-6.1 [facility] Comment on above: Performed By: #### Micheal Miller, ACBC, SANDRAF, LIVR #### [place] [address] WBC (Bld) [#/Vol] 2.5 10*3/uL Low 3.6-11.0 [facility] Comment on above: Performed By: #### Micheal Miller, TILA, WILNER, LIVR #### [place] [address] CBC, EDIF, PLATELETon 2022 Basophils/100 WBC (Bld) 1 % 0.0 - 2.0 % [facility] Differential cell count method Nom (Bld) AUTO DIFF % [facility] Eosinophils/100 WBC (Bld) 10 % 0.0 - 11.0 % [facility] Erythrocyte distribution width (RBC) [Ratio] 16.4 % High 11.5 - 14.5 % [facility] Hematocrit (Bld) [Volume fraction] 30.5 % Low 42.0 - 52.0 % [facility] Hemoglobin (Bld) [Mass/Vol] 9.9 g/dL Low [facility] Interpretation and review of laboratory results Abnormal [facility] Lymphocytes/100 WBC (Bld) 27 % 20.0 - 55.0 % [facility] MCH (RBC) [Entitic mass] 23.0 pg Low 26.0 - 35.0 PG [facility] MCHC (RBC) [Mass/Vol] 32.4 g/dL [facility] MCV (RBC) [Entitic vol] 71.1 fL Low [facility] Monocytes/100 WBC (Bld) 10 % 0.0 - 10.0 % [facility] Morphology Julián (Bld) [Interp] 1+ [facility] Comment on above: MICROCYTOSIS 1+ TARGET CELLS Neutrophils/100 WBC (Bld) 52 % 37.0 - 75.0 % [facility] Platelet mean volume (Bld) [Entitic vol] 8.3 fL [facility] Platelet morphology finding Nom (Bld) DECREASED [facility] Comment on above: Testing performed at [place] [address] Platelets (Bld) [#/Vol] 81 10*3/uL Low 130 - 400 10*3/uL [facility] RBC (Bld) [#/Vol] 4.29 10*6/uL 4.0 - 6.1 10*6/uL [facility] WBC (Bld) [#/Vol] 2.5 10*3/uL Low 3.6 - 11.0 10*3/uL [facility] MAGNESIUMon 03-18-2023 Magnesium [Mass/Vol] 1.8 mg/dL Normal 1.6-2.3 [facility] Comment on above: Result Comment: Test ing performed at [place] [address] Performed By: #### TILA Gold, WILNER, ELIDAR #### [place] [address] Magnesium [Mass/Vol] 1.8 mg/dL [facility] Comment on above: Testing performed at [place] [address] No Panel Informationon 03-18 [facility] RENAL FUNCTION PANELon 03-18 Albumin [Mass/Vol] 2.9 G/dl Low 3.5 - 5.0 G/dl [facility] Calcium [Mass/Vol] 7.4 mg/dL Low [facility] Chloride [Moles/Vol] 97 mmol/L Low [facility] Comment on above: Please note: Triglyc eride levels of 600mg/dL or higher may positively bias chloride results by approximately 2.1 mmol CO2 [Moles/Vol] 31 mmol/L High [facility] Creatinine [Mass/Vol] 0.70 mg/dL [facility] GFR COMMENT Average GFR for 50-5 9 years old = 93. [facility] Comment on above: Chronic Kidney disea se, GFR = <60. Kidney failure, GFR = <15. The GFR estimate is not adjusted for extreme body surface area or acute process, nor has it been validated for women or ethnic groups other than and . Testing performed at [place], [place] [address] GFR/1.73 sq M.predicted among blacks MDRD (S/P/Bld) [Vol rate/Area] 150 mL/min/{1.73_m2} ml/min/1.73s q.m [facility] GFR/1.73 sq M.predicted among non-blacks MDRD (S/P/Bld) [Vol rate/Area] 124 mL/min/{1.73_m2} ml/min/1.73s q.m [facility] Glucose post fast [Mass/Vol] 97 mg/dL [facility] Comment on above: NORMAL <100 mg/dL PREDIABETES 101-126 mg/dL DIABETES 126 mg/dL or higher Interpretation and review of laboratory results Abnormal [facility] Phosphate [Mass/Vol] 4.0 mg/dL [facility] Potassium [Moles/Vol] 4.0 mmol/L [facility] Sodium [Moles/Vol] 134 mmol/L Low [facility] Urea nitrogen [Mass/Vol] 22 mg/dL High [facility] RENAL PANEL,FASTINGon 2022 ALBUMIN 2.9 G/dl Low 3.5-5.0 [facility] Comment on above: Performed By: #### TILA Gold, RENF, LIVR #### Testing performed at [facility] [address] [place] [address] Calcium [Mass/Vol] 7.4 mg/dL Low 8.4-10.2 [facility] Comment on above: Performed By: #### Micheal Miller ACBC, RENF, LIVR #### Testing performed at [facility] [address] [place] [address] Chloride [Moles/Vol] 97 mmol/L Low 98-107 [facility] Comment on above: Result Comment: Plea se note: Triglyceride levels of 600mg/dL or higher may positively bias chloride results by approximately 2.1 mmol Performed By: #### Micheal Miller, TILA, RENF, LIVR #### [place] [address] CO2 [Moles/Vol] 31 mmol/L High 22-30 [facility] Comment on above: Performed By: #### Micheal Miller, TILA, SANDRAF, LIVR #### [place] [address] Creatinine [Mass/Vol] 0.70 mg/dL Normal 0.7-1.2 [facility] Comment on above: Performed By: #### Micheal Miller, TILA, SANDRAF, LIVR #### [place] [address] EST. GFR, 150 ml/min/1.73sq.m [facility] Comment on above: Performed By: #### TILA Gold, SANDRAF, LIVR #### [place] [address] EST. GFR,Non 124 ml/min/1.73sq.m [facility] Comment on above: Performed By: #### Micheal Miller, TILA, RENF, LIVR #### [place] [address] GFR Information Average GFR for 50-5 9 years old = 93. Normal [facility] Comment on above: Result Comment: Security And Compliance Analyst kaveh Kidney disease, GFR = <60. Kidney failure, GFR = <15. The GFR estimate is not adjusted for extreme body surface area or acute process, nor has it been validated for women or ethnic groups other than and . Testing performed at [place] [address] Performed By: #### Micheal Miller, TILA, RENF, LIVR #### [place] [address] Glucose [Mass/Vol] 97 mg/dL Normal 70-100 [facility] Comment on above: Result Comment: NORMAL <100 mg/dL PREDIABETES 101-126 mg/dL DIABETES 126 mg/dL or higher Performed By: #### M Abbi, ACBC, RENF, LIVR #### [place] [address] PHOSPHOROUS 4.0 MG/DL Normal 2.5-4.5 [facility] Comment on above: Performed By: #### Micheal Miller, ACBC, RENF, LIVR #### Testing performed at [place] [id number] Potassium [Moles/Vol] 4.0 mmol/L Normal 3.5-5.1 [facility] Comment on above: Performed By: #### Micheal Miller, ACBC, RENF, LIVR #### [place] [address] Sodium [Moles/Vol] 134 mmol/L Low 137-145 [facility] Comment on above: Performed By: #### Micheal Miller, ACBC, RENF, LIVR #### Testing performed at [place] [id number] Urea nitrogen [Mass/Vol] 22 mg/dL High 7-20 [facility] Comment on above: Performed By: #### Micheal Miller, ACMASOOD, RENF, LIVR #### [place] [address] BLOOD CULTUREon 03-17-2023 Bacteria identified Cx Nom (Bld) SPECIMEN DESCRIPTION PERIPHERAL BLOOD DRAW SPECIAL REQUESTS LAC CULTURE NO GROWTH 5 DAYS * Result Note: Testing performed at [place] [address] * REPORT STATUS 03/22/2023 * Result Note: FINAL * Normal [facility] Comment on above: Performed By: #### M bAbi, ACBC, RENF, LIVR #### [place] [address] Bacteria identified Cx Nom (Bld) SPECIMEN DESCRIPTION PERIPHERAL BLOOD DRAW SPECIAL REQUESTS LEFT FOREARM CULTURE NO GROWTH 5 DAYS * Result Note: Testing performed at [place] [address] * REPORT STATUS 03/22/2023 * Result Note: FINAL * Normal [facility] Comment on above: Performed By: #### Micheal Miller, TILA, RENF, LIVR #### Testing performed at [address] [address] CBCon 03-17-2023 ABSOLUTE BAS 0.0 10*3/uL Normal 0.0-0.2 [facility] Comment on above: Result Comment: Test ing performed at [place] [address] Performed By: #### Micheal Miller, TILA, RENF, LIVR #### [place] [address] ABSOLUTE EOS 0.2 10*3/uL Normal 0.0-0.7 [facility] Comment on above: Performed By: #### Micheal Miller, TILA, RENF, LIVR #### [place] [address] ABSOLUTE NEUTROPHIL COUNT 1.1 10*3/uL Low 1.4-6.5 [facility] Comment on above: Performed By: #### Micheal Miller, TILA, RENF, LIVR #### Testing performed at [place] [id number] Basophils/100 WBC (Bld) 0.8 % Normal 0.0-2.0 [facility] Comment on above: Performed By: #### Micheal Miller, ACBC, RENF, LIVR #### [place] [address] DTYPE AUTO DIFF Normal [facility] Comment on above: Performed By: #### Micheal Miller, TILA, RENF, LIVR #### [place] [address] Eosinophils/100 WBC (Bld) 10.6 % Normal 0.0-11.0 [facility] Comment on above: Performed By: #### Micheal Miller, ACBC, RENF, LIVR #### Testing performed at [place] [id number] Lymphocytes (Bld) [#/Vol] 0.7 10*3/uL Low 1.2-3.4 [facility] Comment on above: Performed By: #### Micheal Miller, ACBC, RENF, LIVR #### Testing performed at [address] [address] Lymphocytes/100 WBC (Bld) 31.6 % Normal 20.0-55.0 [facility] Comment on above: Performed By: #### Micheal Miller, ACBC, RENF, LIVR #### Testing performed at [place] [id number] Monocytes (Bld) [#/Vol] 0.2 10*3/uL Normal 0.0-0.7 [facility] Comment on above: Performed By: #### Micheal Miller, ACBC, RENF, LIVR #### Testing performed at [address] [address] Monocytes/100 WBC (Bld) 8.8 % Normal 0.0-10.0 [facility] Comment on above: Performed By: #### Micheal Miller, ACBC, RENF, LIVR #### Testing performed at [address] [address] Neutrophils/100 WBC (Bld) 48.2 % Normal 37.0-75.0 [facility] Comment on above: Performed By: #### Micheal Miller, ACBC, RENF, LIVR #### Testing performed at [address] [address] Erythrocyte distribution width (RBC) [Ratio] 16.1 % High 11.5-14.5 [facility] Comment on above: Performed By: #### Micheal Miller, ACBC, RENF, LIVR #### Testing performed at [address] [address] Hematocrit (Bld) [Volume fraction] 31.4 % Low 42.0-52.0 [facility] Comment on above: Performed By: #### Micheal Miller, ACBC, RENF, LIVR #### Testing performed at [address] [address] Hemoglobin (Bld) [Mass/Vol] 10.0 g/dL Low 14.0-18.0 [facility] Comment on above: Performed By: #### Micheal Miller, ACBC, RENF, LIVR #### [place] [address] MCH (RBC) [Entitic mass] 22.7 pg Low 26.0-35.0 [facility] Comment on above: Performed By: #### Micheal Miller, ACBC, RENF, LIVR #### [place] [address] MCHC (RBC) [Mass/Vol] 32.0 g/dL Normal 27.0-37.0 [facility] Comment on above: Performed By: #### Micheal Miller, ACBC, RENF, LIVR #### [place] [address] MCV (RBC) [Entitic vol] 71.1 fL Low 80.0-100.0 [facility] Comment on above: Performed By: #### Micheal Miller, ACBC, RENF, LIVR #### [place] [address] Platelet mean volume (Bld) [Entitic vol] 7.7 fL Normal 7.4-11.0 [facility] Comment on above: Result Comment: Test ing performed at [place] [address] Performed By: #### Micheal Miller, ACBC, RENF, LIVR #### [place] [address] Platelets (Bld) [#/Vol] 91 10*3/uL Low 130-400 [facility] Comment on above: Performed By: #### Micheal Miller, ACBC, RENF, LIVR #### [place] [address] RBC (Bld) [#/Vol] 4.41 10*6/uL Normal 4.0-6.1 [facility] Comment on above: Performed By: #### Micheal Miller, ACBC, RENF, LIVR #### [place] [address] WBC (Bld) [#/Vol] 2.2 10*3/uL Low 3.6-11.0 [facility] Comment on above: Performed By: #### M TILA Miller RENF, LIVR #### Testing performed at [address] [address] CBC, EDIF, PLATELETon 2022 ABSOLUTE BASOPHIL COUNT 0.0 10*3/uL 0.0 - 0.2 10*3/uL [facility] Comment on above: Testing performed at [place], [place] [address] Basophils/100 WBC (Bld) 0.8 % 0.0 - 2.0 % [facility] Differential cell count method Nom (Bld) AUTO DIFF % [facility] Eosinophils (Bld) [#/Vol] 0.2 10*3/uL 0.0 - 0.7 10*3/uL [facility] Eosinophils/100 WBC (Bld) 10.6 % 0.0 - 11.0 % [facility] Erythrocyte distribution width (RBC) [Ratio] 16.1 % High 11.5 - 14.5 % [facility] Hematocrit (Bld) [Volume fraction] 31.4 % Low 42.0 - 52.0 % [facility] Hemoglobin (Bld) [Mass/Vol] 10.0 g/dL Low [facility] Interpretation and review of laboratory results Abnormal [facility] Lymphocytes (Bld) [#/Vol] 0.7 10*3/uL Low 1.2 - 3.4 10*3/uL [facility] Lymphocytes/100 WBC (Bld) 31.6 % 20.0 - 55.0 % [facility] MCH (RBC) [Entitic mass] 22.7 pg Low 26.0 - 35.0 PG [facility] MCHC (RBC) [Mass/Vol] 32.0 g/dL [facility] MCV (RBC) [Entitic vol] 71.1 fL Low [facility] Monocytes (Bld) [#/Vol] 0.2 10*3/uL 0.0 - 0.7 10*3/uL [facility] Monocytes/100 WBC (Bld) 8.8 % 0.0 - 10.0 % [facility] Neutrophils (Bld) [#/Vol] 1.1 10*3/uL Low 1.4 - 6.5 10*3/uL [facility] Neutrophils/100 WBC (Bld) 48.2 % 37.0 - 75.0 % [facility] Platelet mean volume (Bld) [Entitic vol] 7.7 fL [facility] Platelets (Bld) [#/Vol] 91 10*3/uL Low 130 - 400 10*3/uL [facility] RBC (Bld) [#/Vol] 4.41 10*6/uL 4.0 - 6.1 10*6/uL [facility] WBC (Bld) [#/Vol] 2.2 10*3/uL Low 3.6 - 11.0 10*3/uL [facility] MAGNESIUMon 03-17-2023 Magnesium [Mass/Vol] 1.7 mg/dL Normal 1.6-2.3 [facility] Comment on above: Result Comment: Test ing performed at [place] [address] Performed By: #### TILA Gold RENF, LIVPamela #### [place] [address] Magnesium [Mass/Vol] 1.7 mg/dL [facility] Comment on above: Testing performed at [place] [address] MRSA SCREENon 03-17-2023 MRSA DNA HERMAN+probe Ql (Unsp spec) Negative Normal NEGATIVE [facility] Comment on above: Performed By: #### TILA Gold RENF, LIVR #### [place] [address] STAPH AUREUS SCREEN Negative Normal NEGATIVE [facility] Comment on above: Result Comment: TEST ING PERFORMED BY PCR Testing performed at [place] [address] Performed By: #### TILA Gold RENF, LIVR #### [place] [address] No Panel Informationon 03-17 [facility] PROCALCITONINon 03-17-2023 PROCALCITONIN 0.06 ng/mL Normal 0.00-0.25 [facility] Comment on above: Result Comment: PCT Interpretation Less than 0.10 ng/mL, antibiotic therapy strongly discouraged. 0.10-0.25 ng/mL, antibiotic therapy discouraged. 0.25-0.50 ng/mL, antibiotic therapy encouraged. Greater than 0.50 ng/mL, antibiotic therapy strongly encouraged. Testing performed at [place] [address] Performed By: #### TILA Gold RENF, LIVR #### [place] [address] PROCALCITONIN 0.06 ng/mL 0.00 - 0.25 ng/mL [facility] Comment on above: PCT Interpretation Less than 0.10 ng/mL, antibiotic therapy strongly discouraged. 0.10-0.25 ng/mL, antibiotic therapy discouraged. 0.25-0.50 ng/mL, antibiotic therapy encouraged. Greater than 0.50 ng/mL, antibiotic therapy strongly encouraged. Testing performed at [address] PROTIMEon 03-17-2023 INR Coag (PPP) [Relative time] 1.27 {INR} High 0.85-1.10 [facility] Comment on above: Result Comment: 2.0-3.0 THERAPEUTIC RANGE 2.5-3.5 MECHANICAL VALVE RANGE Testing performed at [place] [address] Performed By: #### TILA Gold RENF, PERI #### [place] [address] PT Coag (PPP) [Time] 16.0 s High 11.8-14.4 [facility] Comment on above: Performed By: #### TILA Gold RENF, PERI #### [place] [address] PROTIME-INRon 03-17-2023 INR Coag (PPP) [Relative time] 1.27 {INR} High 0.85 - 1.10 [facility] Comment on above: 2.0-3.0 THERAPEUTIC RANGE 2.5-3.5 MECHANICAL VALVE RANGE Testing performed at [place] [address] Interpretation and review of laboratory results Abnormal [facility] PT Coag (PPP) [Time] 16.0 s High [facility] RAPID TOX SCREEN,URINEon AMPHETAMINE Negative Normal NEGATIVE [facility] Comment on above: Result Comment: <500 ng/ml CUTOFF Performed By: #### M G, ACBC, RENF, LIVR #### [place] [address] BARBITURATES Negative Normal NEGATIVE [facility] Comment on above: Result Comment: <200 ng/ml CUTOFF Performed By: #### M G, ACBC, RENF, LIVR #### [place] [address] BENZODIAZEPINES Positive Abnormal NEGATIVE [facility] Comment on above: Result Comment: <150 ng/ml CUTOFF *Unconfirmed Screening Result* Unconfirmed screening results are to be used only for medical treatment purposes. Performed By: #### M G, ACBC, RENF, LIVR #### [place] [address] BUPRENORPHINE Positive Abnormal NEGATIVE [facility] Comment on above: Result Comment: <10 ng/ml CUTOFF *Unconfirmed Screening Result* Unconfirmed screening results are to be used only for medical treatment purposes. Performed By: #### M G, ACBC, RENF, LIVR #### [place] [address] CANNABINOIDS Negative Normal NEGATIVE [facility] Comment on above: Result Comment: <50 ng/ml CUTOFF Performed By: #### M G, ACBC, RENF, LIVR #### [place] [address] COCAINE Positive Abnormal NEGATIVE [facility] Comment on above: Result Comment: <150 ng/ml CUTOFF *Unconfirmed Screening Result* Unconfirmed screening results are to be used only for medical treatment purposes. Performed By: #### M G, ACBC, RENF, LIVR #### [place] [address] FENTANYL Negative Normal NEGATIVE [facility] Comment on above: Result Comment: 20 n g/mL CUTOFF *Unconfirmed Screening Result* Unconfirmed screening results are to be used only for medical treatment purposes. This test has not been approved by the FDA. Testing performed at [place] [address] Performed By: #### M G, ACBC, RENF, LIVR #### [place] [address] METHADONE Negative Normal NEGATIVE [facility] Comment on above: Result Comment: <200 ng/ml CUTOFF Performed By: #### M G, ACBC, RENF, LIVR #### [place] [address] METHAMPHETAMINE Negative Normal NEGATIVE [facility] Comment on above: Result Comment: <500 ng/ml CUTOFF Performed By: #### M G, ACBC, RENF, LIVR #### [place] [address] OPIATES Negative Normal NEGATIVE [facility] Comment on above: Result Comment: <100 ng/ml CUTOFF Performed By: #### M G, ACBC, RENF, LIVR #### [place] [address] OXYCODONE Negative Normal NEGATIVE [facility] Comment on above: Result Comment: <100 ng/ml CUTOFF Performed By: #### M G, ACBC, RENF, LIVR #### [place] [address] PHENCYCLIDINE Negative Normal NEGATIVE [facility] Comment on above: Result Comment: <25 ng/ml CUTOFF Performed By: #### M G, ACBC, RENF, LIVR #### [place] [address] PROPOXYPHENE Negative Normal NEGATIVE [facility] Comment on above: Result Comment: <300 ng/ml CUTOFF Performed By: #### M G, ACBC, RENF, LIVR #### [place] [address] TRICYCLIC ANTIDEPRESSANTS Negative Normal NEGATIVE [facility] Comment on above: Result Comment: <300 ng/ml CUTOFF Performed By: #### M G, ACMASOOD, RENF, LIVR #### Testing performed at [address] [address] RENAL FUNCTION PANELon 03-17 Albumin [Mass/Vol] 3.0 G/dl Low 3.5 - 5.0 G/dl [facility] Calcium [Mass/Vol] 7.9 mg/dL Low [facility] Chloride [Moles/Vol] 96 mmol/L Low [facility] Comment on above: Please note: Triglyc eride levels of 600mg/dL or higher may positively bias chloride results by approximately 2.1 mmol CO2 [Moles/Vol] 32 mmol/L High [facility] Creatinine [Mass/Vol] 0.50 mg/dL Low [facility] [employer] GFR COMMENT Average GFR for 50-5 9 years old = 93. [facility] Comment on above: Chronic Kidney disea se, GFR = <60. Kidney failure, GFR = <15. The GFR estimate is not adjusted for extreme body surface area or acute process, nor has it been validated for women or ethnic groups other than and . Testing performed at [place], [place] [address] GFR/1.73 sq M.predicted among blacks MDRD (S/P/Bld) [Vol rate/Area] 221 mL/min/{1.73_m2} ml/min/1.73s q.m [facility] [employer] GFR/1.73 sq M.predicted among non-blacks MDRD (S/P/Bld) [Vol rate/Area] 183 mL/min/{1.73_m2} ml/min/1.73s q.m [facility] [employer] Glucose post fast [Mass/Vol] 90 mg/dL [facility] Comment on above: NORMAL <100 mg/dL PREDIABETES 101-126 mg/dL DIABETES 126 mg/dL or higher Interpretation and review of laboratory results Abnormal [facility] Phosphate [Mass/Vol] 4.4 mg/dL [facility] [employer] Potassium [Moles/Vol] 3.6 mmol/L [facility] Sodium [Moles/Vol] 133 mmol/L Low [facility] Urea nitrogen [Mass/Vol] 16 mg/dL [facility] RENAL PANEL,FASTINGon 2022 ALBUMIN 3.0 G/dl Low 3.5-5.0 [facility] Comment on above: Performed By: #### TILA Gold, RENF, LIVR #### [place] [address] Calcium [Mass/Vol] 7.9 mg/dL Low 8.4-10.2 [facility] Comment on above: Performed By: #### Micheal Miller, ACBC, RENF, LIVR #### Testing performed at [place] [id number] Chloride [Moles/Vol] 96 mmol/L Low 98-107 [facility] Comment on above: Result Comment: Krystian boyd note: Triglyceride levels of 600mg/dL or higher may positively bias chloride results by approximately 2.1 mmol Performed By: #### TILA Gold, RENF, LIVR #### [place] [address] CO2 [Moles/Vol] 32 mmol/L High 22-30 [facility] Comment on above: Performed By: #### TILA Gold, RENF, LIVR #### Testing performed at [place] [id number] Creatinine [Mass/Vol] 0.50 mg/dL Low 0.7-1.2 [facility] Comment on above: Performed By: #### Micheal Miller ACBC, RENF, LIVR #### Testing performed at [place] [id number] EST. GFR, 221 ml/min/1.73sq.m [facility] Comment on above: Performed By: #### Micheal Miller ACBC, RENF, LIVR #### Testing performed at [place] [id number] EST. GFR,Non 183 ml/min/1.73sq.m [facility] Comment on above: Performed By: #### Micheal Miller ACBC, RENF, LIVR #### [place] [address] GFR Information Average GFR for 50-5 9 years old = 93. Normal [facility] Comment on above: Result Comment: [employer] Compliance Analyst kaveh Kidney disease, GFR = <60. Kidney failure, GFR = <15. The GFR estimate is not adjusted for extreme body surface area or acute process, nor has it been validated for women or ethnic groups other than and . Testing performed at [place] [address] Performed By: #### Micheal Miller, ACBC, RENF, LIVR #### [place] [address] Glucose [Mass/Vol] 90 mg/dL Normal 70-100 [facility] Comment on above: Result Comment: NORMAL <100 mg/dL PREDIABETES 101-126 mg/dL DIABETES 126 mg/dL or higher Performed By: #### Micheal Miller, ACBC, RENF, LIVR #### [place] [address] PHOSPHOROUS 4.4 MG/DL Normal 2.5-4.5 [facility] Comment on above: Performed By: #### Micheal Miller, ACBC, RENF, LIVR #### [place] [address] Potassium [Moles/Vol] 3.6 mmol/L Normal 3.5-5.1 [facility] Comment on above: Performed By: #### Micheal Miller, ACBC, RENF, LIVR #### [place] [address] Sodium [Moles/Vol] 133 mmol/L Low 137-145 [facility] Comment on above: Performed By: #### Micheal Miller, ACBC, RENF, LIVR #### [place] [address] Urea nitrogen [Mass/Vol] 16 mg/dL Normal 7-20 [facility] Comment on above: Performed By: #### Micheal Miller, ACBC, RENF, LIVR #### Testing performed at [address] [address] SCREEN: MRSA ONLY, NARES (IS OLATION SCREEN)on 03-17-2023 MRSA isol Org specific cx Ql (Nose) Negative NEGATIVE [employer] STAPHYOCOCCUS AUREUS BY PCR Negative NEGATIVE [employer] Comment on above: TESTING PERFORMED BY PCR Testing performed at [place] [address] [facility] TOXICOLOGY DRUG SCREEN, URIN Jonathan 03-17-2023 Amphetamine (U) [Mass/Vol] Negative NEGATIVE NG/ML [employer] Comment on above: <500 ng/ml CUTOFF Barbiturates Screen Ql (U) Negative NEGATIVE NG/ML [facility] Comment on above: <200 ng/ml CUTOFF Benzodiazepines Ql (U) Positive Abnormal NEGATIVE NG/ML [employer] Comment on above: <150 ng/ml CUTOFF *Unconfirmed Screening Result* Unconfirmed screening results are to be used only for medical treatment purposes. Benzoylecgonine Ql (U) Positive Abnormal NEGATIVE NG/ML [facility] Comment on above: <150 ng/ml CUTOFF *Unconfirmed Screening Result* Unconfirmed screening results are to be used only for medical treatment purposes. Buprenorphine Ql (U) Positive Abnormal NEGATIV E NG/ML [facility] Comment on above: <10 ng/ml CUTOFF *Unconfirmed Screening Result* Unconfirmed screening results are to be used only for medical treatment purposes. Cannabinoids Screen Ql (U) Negative NEGATIVE NG/ML [employer] Comment on above: <50 ng/ml CUTOFF Fentanyl Negative NEGATIVE NG/ML [facility] Comment on above: 20 ng/mL CUTOFF *Unconfirmed Screening Result* Unconfirmed screening results are to be used only for medical treatment purposes. This test has not been approved by the FDA. Testing performed at [place] [address] Interpretation and review of laboratory results Abnormal [facility] Methadone Screen Ql (U) Negative NEGATIVE NG/ML [facility] Comment on above: <200 ng/ml CUTOFF Methamphetamine (U) [Mass/Vol] Negative NEGATIVE NG/ML [facility] Comment on above: <500 ng/ml CUTOFF Opiates Screen Ql (U) Negative NEGATIVE NG/ML [facility] Comment on above: <100 ng/ml CUTOFF oxyCODONE Ql (U) Negative NEGATIVE NG/ML [facility] Comment on above: <100 ng/ml CUTOFF Phencyclidine Screen method >25 ng/mL Ql (U) Negative NEGATIVE NG/ML [facility] Comment on above: <25 ng/ml CUTOFF Propoxyphene+Norprop oxyphene Screen Ql (U) Negative NEGATIVE NG/ML [facility] Comment on above: <300 ng/ml CUTOFF Tricyclic antidepressants Screen Ql (U) Negative NEGATIVE NG/ML [facility] Comment on above: <300 ng/ml CUTOFF [facility] WOUND CULTUREon 03-17-2023 WOUND CULTURE SPECIMEN DESCRIPTION RIGHT FOOT SPECIAL REQUESTS RIGHT FOOT GRAM SMEAR FEW * Result Note: WBC'S SEEN * * Result Note: FEW * * Result Note: GRAM POSITIVE COCCI * * Result Note: FEW * * Result Note: SQUAMOUS EPITHELIAL CELLS * CULTURE NORMAL SKIN SOBEIDA PRESENT * Result Note: MODERATE GROWTH * * Result Note: Testing performed at [place] [address] * REPORT STATUS 03/20/2023 * Result Note: FINAL * Normal [facility] Comment on above: Performed By: #### M G, ACBC, RENF, LIVR #### [place] [address] B-TYPE NATRIURETIC PEPTIDE ( BRAIN)on 03-16-2023 Natriuretic peptide B (Bld) [Mass/Vol] 27 pg/mL 0 - 100 pg/mL [facility] C REACTIVE PROTEINon 023 CRP [Mass/Vol] 5.5 mg/L 0 - 10 MG/L [facility] CBC, EDIF, PLATELETon 2022 ABSOLUTE BASOPHIL COUNT 0.0 10*3/uL 0.0 - 0.2 10*3/uL [facility] Basophils/100 WBC (Bld) 0.4 % 0.0 - 2.0 % [facility] Differential cell count method Nom (Bld) AUTO DIFF % [facility] Eosinophils (Bld) [#/Vol] 0.3 10*3/uL 0.0 - 0.7 10*3/uL [facility] Eosinophils/100 WBC (Bld) 9.0 % 0.0 - 11.0 % [facility] Erythrocyte distribution width (RBC) [Ratio] 15.9 % High 11.5 - 14.5 % [facility] Hematocrit (Bld) [Volume fraction] 33.6 % Low 42.0 - 52.0 % [facility] Hemoglobin (Bld) [Mass/Vol] 10.5 g/dL Low [facility] Interpretation and review of laboratory results Abnormal [facility] Lymphocytes (Bld) [#/Vol] 0.6 10*3/uL Low 1.2 - 3.4 10*3/uL [facility] Lymphocytes/100 WBC (Bld) 16.9 % Low 20.0 - 55.0 % [facility] MCH (RBC) [Entitic mass] 22.4 pg Low 26.0 - 35.0 PG [facility] MCHC (RBC) [Mass/Vol] 31.3 g/dL [facility] MCV (RBC) [Entitic vol] 71.7 fL Low [facility] Monocytes (Bld) [#/Vol] 0.4 10*3/uL 0.0 - 0.7 10*3/uL [facility] Monocytes/100 WBC (Bld) 9.6 % 0.0 - 10.0 % [facility] Neutrophils (Bld) [#/Vol] 2.3 10*3/uL 1.4 - 6.5 10*3/uL [facility] Neutrophils/100 WBC (Bld) 64.1 % 37.0 - 75.0 % [facility] Platelet mean volume (Bld) [Entitic vol] 7.7 fL [facility] Platelets (Bld) [#/Vol] 106 10*3/uL Low 130 - 400 10*3/uL [facility] RBC (Bld) [#/Vol] 4.68 10*6/uL 4.0 - 6.1 10*6/uL [facility] WBC (Bld) [#/Vol] 3.6 10*3/uL 3.6 - 11.0 10*3/uL [facility] CKon 03-16-2023 CK [Catalytic activity/Vol] Low [facility] Interpretation and review of laboratory results Abnormal [facility] COMPREHENSIVE METABOLIC PANE Ras 03-16-2023 Albumin [Mass/Vol] 3.6 G/dl 3.5 - 5.0 G/dl [facility] Albumin/Globulin [Mass ratio] 0.8 {ratio} RATIO [facility] ALP [Catalytic activity/Vol] 53 U/L [facility] ALT [Catalytic activity/Vol] 21 U/L NINF [facility] AST [Catalytic activity/Vol] 38 U/L [facility] Bilirubin [Mass/Vol] 1.6 mg/dL High [facility] Calcium [Mass/Vol] 8.3 mg/dL Low [facility] Chloride [Moles/Vol] 96 mmol/L Low [facility] Comment on above: Please note: Triglyc eride levels of 600mg/dL or higher may positively bias chloride results by approximately 2.1 mmol CO2 [Moles/Vol] 33 mmol/L High [facility] Creatinine [Mass/Vol] 0.59 mg/dL Low [facility] GFR COMMENT Average GFR for 50-5 9 years old = 93. [facility] Comment on above: Chronic Kidney disea se, GFR = <60. Kidney failure, GFR = <15. The GFR estimate is not adjusted for extreme body surface area or acute process, nor has it been validated for women or ethnic groups other than and . GFR/1.73 sq M.predicted among blacks MDRD (S/P/Bld) [Vol rate/Area] 183 mL/min/{1.73_m2} ml/min/1.73s q.m [facility] GFR/1.73 sq M.predicted among non-blacks MDRD (S/P/Bld) [Vol rate/Area] 151 mL/min/{1.73_m2} ml/min/1.73s q.m [facility] Glucose post fast [Mass/Vol] 116 mg/dL High [facility] Comment on above: NORMAL <100 mg/dL PREDIABETES 101-126 mg/dL DIABETES 126 mg/dL or higher Interpretation and review of laboratory results Abnormal [facility] Potassium [Moles/Vol] 3.5 mmol/L [facility] Protein [Mass/Vol] 8.1 g/dL [facility] Sodium [Moles/Vol] 137 mmol/L [facility] Urea nitrogen [Mass/Vol] 15 mg/dL [facility] LACTATE, BLOODon 03-16-2023 Lactate [Moles/Vol] 1.7 mmol/L 0.7 - 2. 0 mmol/L [facility] No Panel Informationon 03-16 [facility] Portable XR Chest Views APon 03-16-2023 IMPRESSION: [...] soft tissue. IMPRESSION IMPRESSION: No acute findings. [facility] Radiology Study observation (narrative) [facility] Portable XR Chest Views APOr dered By: Jerry Zimmerman on 03-16-2023 [facility] Work Phone: SEDIMENTATION RATE, AUTOMATE Don 03-16-2023 ESR (Bld) [Velocity] 65 mm/h High [facility] Interpretation and review of laboratory results Abnormal [facility] TROPONIN I, HIGH SENSITIVITY on 03-16-2023 TROPONIN I, HIGH SENSITIVITY 2 pg/mL 0 - 20 pg/mL [facility] Comment on above: Indeterminant: >12 to 100 pg/mL female >20 to 100 pg/mL male Indicative of myocardial injury. Serial sampling is recommended, a change of greater than or equal to 20 pg/mL is indicative of acute coronary syndrome. [facility] US.doppler Extremity vessels - bilateralon 03-16-2023 [...] visualized venous thrombus. Right inguinal lymph node. [facility] Radiology Study observation (narrative) [facility] US.doppler Extremity vessels - bilateralOrdered By: Paulino Marcos on 03-16-2023 [facility] [employer] Work Phone: WOUND CULTUREon 03-14-2023 WOUND CULTURE SPECIMEN DESCRIPTION LEFT LEG GRAM SMEAR FEW * Result Note: WBC'S SEEN * * Result Note: FEW * * Result Note: GRAM POSITIVE COCCI * CULTURE ENTEROCOCCUS FAECALIS GROUP D * Result Note: HEAVY GROWTH * * Result Note: Testing performed at [place], [place] [address] * REPORT STATUS 03/14/2023 * Result Note: FINAL * ORGANISM ENTEROCOCCUS FAECALIS GROUP D * Result Note: ENTEROCOCCUS FAECALIS GROUP D * METHOD LIV AMPICILLIN <=2 SUSCEPTIBLE PENICILLIN G 2 SUSCEPTIBLE VANCOMYCIN 1 SUSCEPTIBLE GENTAMICIN HIGH LEVEL RESISTANT STREPTOMYCIN HIGH LEVEL SUSCEPTIBLE Normal [facility] Comment on above: Performed By: #### M G, ACBC, RENF, LIVR #### Testing performed at [facility] [address] [place] [address] [employer]UBLE TRANSFERRIN RECEPTOR on 03-05-2023 SOLUBLE TRANSFERRIN RECEPTOR 27.4 High [facility] Comment on above: Result Comment: Refe rence range: 12.2 to 27.3 Unit: nmol/L PERFORMED AT [facility] Performed By: #### L STR #### Testing performed at [facility] C REACTIVE PROTEINon 023 CRP [Mass/Vol] 5.9 mg/L Normal 0-10 [facility] CBCon 03-03-2023 ABSOLUTE BAS 0.0 10*3/uL Normal 0.0-0.2 [facility] ABSOLUTE EOS 0.1 10*3/uL Normal 0.0-0.7 [facility] ABSOLUTE NEUTROPHIL COUNT 1.9 10*3/uL Normal 1.4-6.5 [facility] Basophils/100 WBC (Bld) 0.6 % Normal 0.0-2.0 [facility] DTYPE AUTO DIFF Normal [facility] Eosinophils/100 WBC (Bld) 3.9 % Normal 0.0-11.0 [facility] Lymphocytes (Bld) [#/Vol] 0.6 10*3/uL Low 1.2-3.4 [facility] Lymphocytes/100 WBC (Bld) 21.3 % Normal 20.0-55.0 [facility] Monocytes (Bld) [#/Vol] 0.2 10*3/uL Normal 0.0-0.7 [facility] Monocytes/100 WBC (Bld) 8.2 % Normal 0.0-10.0 [facility] Neutrophils/100 WBC (Bld) 66.0 % Normal 37.0-75.0 [facility] Erythrocyte distribution width (RBC) [Ratio] 16.4 % High 11.5-14.5 [facility] Hematocrit (Bld) [Volume fraction] 29.1 % Low 42.0-52.0 [facility] Hemoglobin (Bld) [Mass/Vol] 9.3 g/dL Low 14.0-18.0 [facility] MCH (RBC) [Entitic mass] 23.1 pg Low 26.0-35.0 [facility] MCHC (RBC) [Mass/Vol] 32.1 g/dL Normal 27.0-37.0 [facility] MCV (RBC) [Entitic vol] 72.1 fL Low 80.0-100.0 [facility] Platelet mean volume (Bld) [Entitic vol] 7.4 fL Normal 7.4-11.0 [facility] Platelets (Bld) [#/Vol] 96 10*3/uL Low 130-400 [facility] RBC (Bld) [#/Vol] 4.03 10*6/uL Normal 4.0-6.1 [facility] WBC (Bld) [#/Vol] 2.8 10*3/uL Low 3.6-11.0 [facility] ESRon 03-03-2023 ESR (Bld) [Velocity] 31 mm/h High 0-20 [facility] MAGNESIUMon 03-03-2023 Magnesium [Mass/Vol] 1.9 mg/dL Normal 1.6-2.3 [facility] RENAL PANEL,FASTINGon 2022 ALBUMIN 2.9 G/dl Low 3.5-5.0 [facility] Calcium [Mass/Vol] 8.0 mg/dL Low 8.4-10.2 [facility] Chloride [Moles/Vol] 113 mmol/L High 98-107 [facility] Comment on above: Result Comment: Krystian boyd note: Triglyceride levels of 600mg/dL or higher may positively bias chloride results by approximately 2.1 mmol CO2 [Moles/Vol] 25 mmol/L Normal 22-30 [facility] Creatinine [Mass/Vol] 0.50 mg/dL Low 0.7-1.2 [facility] EST. GFR, 221 ml/min/1.73sq.m Normal [facility] EST. GFR,Non 183 ml/min/1.73sq.m Normal [facility] GFR Information Average GFR for 50-5 9 years old = 93. Normal [facility] Comment on above: Result Comment: Security And Compliance Analyst kaveh Kidney disease, GFR = <60. Kidney failure, GFR = <15. The GFR estimate is not adjusted for extreme body surface area or acute process, nor has it been validated for women or ethnic groups other than and . Glucose [Mass/Vol] 93 mg/dL Normal 70-100 [facility] Comment on above: Result Comment: NORMAL <100 mg/dL PREDIABETES 101-126 mg/dL DIABETES 126 mg/dL or higher PHOSPHOROUS 3.2 MG/DL Normal 2.5-4.5 [facility] Potassium [Moles/Vol] 4.3 mmol/L Normal 3.5-5.1 [facility] Sodium [Moles/Vol] 136 mmol/L Low 137-145 [facility] Urea nitrogen [Mass/Vol] 16 mg/dL Normal 7-20 [facility] VANCOMYCIN TROUGHon 03-03-20 23 VANCOMYCIN TROUGH 15.2 UG/ML Normal 15-20 [facility] WOUND CULTUREon 03-03-2023 WOUND CULTURE SPECIMEN [...] * * Result Note: Testing performed at [place], [place] [address] * REPORT STATUS 03/03/2023 * Result Note: FINAL * ORGANISM STAPHYLOCOCCUS AUREUS * Result Note: STAPHYLOCOCCUS AUREUS * METHOD LIV OXACILLIN 0.5 SUSCEPTIBLE CLINDAMYCIN <=0.25 SUSCEPTIBLE ERYTHROMYCIN >=8 RESISTANT TETRACYCLINE <=1 SUSCEPTIBLE VANCOMYCIN <=0.5 SUSCEPTIBLE RIFAMPIN <=0.5 SUSCEPTIBLE PENICILLIN G >=0.5 RESISTANT GENTAMICIN <=0.5 SUSCEPTIBLE LEVOFLOXACIN 0.25 SUSCEPTIBLE INDUCIBLE CLINDAMYCIN RESISTANCE NEGATIVE LINEZOLID 2 SUSCEPTIBLE TRIMETH-SULFA <=10 SUSCEPTIBLE Normal [facility] Comment on above: Performed By: #### W DC ####Testing performed at [address] [id number] performed at [place] [id number] [place] [address] B12 FOLATEon 03-02-2023 Cobalamin (Vitamin B12) [Mass/Vol] 327 pg/mL Normal 239-931 [facility] Comment on above: Performed By: #### A CBC, FEPRO ####Testing performed at [address] [address] FOLATE 6.7 NG/ML Normal 2.56-20.0 [facility] Comment on above: Performed By: #### A CBC, FEPRO ####Testing performed at [address] [address] C REACTIVE PROTEINon 023 CRP [Mass/Vol] 8.5 mg/L Normal 0-10 [facility] Comment on above: Performed By: #### A CBC, FEPRO #### Testing performed at [address] [address] CBCon 03-02-2023 DTYPE MANUAL DIFF Normal [facility] Comment on above: Performed By: #### A CBC, FEPRO #### Testing performed at [address] [address] Eosinophils/100 WBC (Bld) 2 % Normal 0.0-11.0 [facility] Comment on above: Performed By: #### A CBC, FEPRO #### Testing performed at [address] [address] Lymphocytes/100 WBC (Bld) 26 % Normal 20.0-55.0 [facility] Comment on above: Performed By: #### A CBC, FEPRO #### Testing performed at [address] [address] Monocytes/100 WBC (Bld) 4 % Normal 0.0-10.0 [facility] Comment on above: Performed By: #### A CBC, FEPRO #### Testing performed at [address] [address] Neutrophils/100 WBC (Bld) 68 % Normal 37.0-75.0 [facility] Comment on above: Performed By: #### A CBC, FEPRO #### Testing performed at [address] [address] PLATELET COMMENT DECREASED Normal [facility] Comment on above: Performed By: #### A CBC, FEPRO #### Testing performed at [address] [address] RBC morphology finding Nom (Bld) 1+ Normal [facility] Comment on above: Result Comment: ANIS OCYTE 1+ POIKILOCYTE 1+ TARGET CELLS 1+ MICROCYTOSIS Performed By: #### A CBC, FEPRO #### Testing performed at [address] [address] Erythrocyte distribution width (RBC) [Ratio] 16.6 % High 11.5-14.5 [facility] Comment on above: Performed By: #### A CBC, FEPRO #### Testing performed at [address] [address] Hematocrit (Bld) [Volume fraction] 27.6 % Low 42.0-52.0 [facility] Comment on above: Performed By: #### A CBC, FEPRO #### Testing performed at [address] [address] Hemoglobin (Bld) [Mass/Vol] 8.7 g/dL Low 14.0-18.0 [facility] Comment on above: Performed By: #### A CBC, FEPRO #### Testing performed at [address] [address] MCH (RBC) [Entitic mass] 22.9 pg Low 26.0-35.0 [facility] Comment on above: Performed By: #### A CBC, FEPRO #### Testing performed at [address] [address] MCHC (RBC) [Mass/Vol] 31.7 g/dL Normal 27.0-37.0 [facility] Comment on above: Performed By: #### A CBC, FEPRO #### Testing performed at [address] [address] MCV (RBC) [Entitic vol] 72.2 fL Low 80.0-100.0 [facility] Comment on above: Performed By: #### A CBC, FEPRO #### Testing performed at [address] [address] Platelet mean volume (Bld) [Entitic vol] 8.4 fL Normal 7.4-11.0 [facility] Comment on above: Performed By: #### A CBC, FEPRO #### Testing performed at [address] [address] Platelets (Bld) [#/Vol] 93 10*3/uL Low 130-400 [facility] Comment on above: Performed By: #### A CBC, FEPRO #### Testing performed at [address] [address] RBC (Bld) [#/Vol] 3.83 10*6/uL Low 4.0-6.1 [facility] Comment on above: Performed By: #### A CBC, FEPRO #### Testing performed at [address] [address] WBC (Bld) [#/Vol] 2.0 10*3/uL Low 3.6-11.0 [facility] Comment on above: Performed By: #### A CBC, FEPRO #### Testing performed at [address] [address] ESRon 03-02-2023 ESR (Bld) [Velocity] 21 mm/h High 0-20 [facility] Comment on above: Performed By: #### A CBC, FEPRO #### Testing performed at [place] [id number] FERRITINon 03-02-2023 Ferritin [Mass/Vol] 70 ng/mL Normal 17.9-464 [facility] Comment on above: Performed By: #### A CBC, FEPRO ####Testing performed at [place] [id number] HCV FIBROSUREon 03-02-2023 ALPHA 2 MACROGLOBULIN QN 204 Normal [facility] Comment on above: Result Comment: Refe rence range: 110 to 276 Unit: mg/dL Performed By: #### A CBC ####[place] [address]#### LHCVF, LHCV ####Testing performed at [facility] ALT P5P 9 [facility] Comment on above: Result Comment: Refe rence range: 0 to 55 Unit: IU/L Performed By: #### A CBC ####[place] [address]#### LHCVF, LHCV ####Testing performed at [facility] APOLIPOPROTEIN A1 75 Low [facility] Comment on above: Result Comment: Refe rence range: 101 to 178 Unit: mg/dL Performed By: #### A CBC ####Testing performed at [place] [id number]#### LHCVF, LHCV ####Testing performed at [facility] Bilirubin [Mass/Vol] 0.7 mg/dL [facility] Comment on above: Result Comment: Refe rence range: 0.0 to 1.2 Unit: mg/dL Performed By: #### A CBC ####[place] [address]#### LHCVF, LHCV ####Testing performed at [facility] COMMENT Comment Normal [facility] Comment on above: Result Comment: (NOT E) This test was developed and its performance characteristics determined by [facility]. It has not been cleared or approved by the Food and Drug Administration. The FDA has determined that such clearance or approval is not necessary. For questions regarding this report please contact customer service at . Performed By: #### A CBC ####[place] [address]#### LHCVF, LHCV ####Testing performed at [facility] FIBROSIS SCORE 0.64 High [facility] Comment on above: Result Comment: Refe rence range: 0.00 to 0.21 Performed By: #### A CBC ####[place] [address]#### LHCVF, LHCV ####Testing performed at [facility] FIBROSIS SCORING Comment Normal [facility] Comment on above: Result Comment: (NOT [...] By: #### A CBC ####[place] [address]#### LHCVF, LHCV ####Testing performed at [facility] FIBROSIS STAGE Bridging fibrosis wi th many septa Normal [facility] Comment on above: Result Comment: Comm ent F3 Performed By: #### A CBC ####[place] [address]#### LHCVF, LHCV ####Testing performed at [facility] Gamma glutamyl transferase [Catalytic activity/Vol] 21 U/L Normal [facility] Comment on above: Result Comment: Refe rence range: 0 to 65 Unit: IU/L Performed By: #### A CBC ####[place] [address]#### LHCVF, LHCV ####Testing performed at [facility] HAPTOGLOBIN 42 Normal [facility] Comment on above: Result Comment: Refe rence range: 29 to 370 Unit: mg/dL Performed By: #### A CBC ####[place] [address]#### LHCVF, LHCV ####Testing performed at [facility] INTERPRETATIONS Comment Normal [facility] Comment on above: Result Comment: (NOT E) Quantitative results of 6 biochemical tests are analyzed using a computational algorithm to provide a quantitative surrogate marker (0.0-1.0) for liver fibrosis (METAVIR F0-F4) and for necroinflammatory activity (METAVIR A0-A3). Performed By: #### A CBC ####[place] [address]#### LHCVF, LHCV ####Testing performed at [facility] LIMITATIONS Comment Normal [facility] Comment on above: Result Comment: (NOT [...] By: #### A CBC ####[place] [address]#### LHCVF, LHCV ####Testing performed at [facility] METHODOLOGY Comment Normal [facility] Comment on above: Result Comment: (NOT E) The analytes tested are performed by [employer] methods. Not intended for use with other diagnostic considerations. PERFORMED AT [facility] Performed By: #### A CBC ####[place] [address]#### LHCVF, LHCV ####Testing performed at [facility] NECROINFLAMMATORY ACTIVITY GRADE No activity Normal [facility] Comment on above: Result Comment: SEE COMMENT RESULT:A0 Performed By: #### A CBC ####[place] [address]#### LHCVF, LHCV ####Testing performed at [facility] NECROINFLAMMATORY ACTIVITY SCORE 0.04 Normal [facility] Comment on above: Result Comment: Refe rence range: 0.00 to 0.17 Performed By: #### A CBC ####[place] [address]#### LHCVF, LHCV ####Testing performed at [facility] NECROINFLAMMATORY ACTIVITY SCORING Comment Normal [facility] Comment on above: Result Comment: (NOT [...] By: #### A CBC ####Testing performed at [address] [address]#### LHCVF, LHCV ####Testing performed at [facility] HIV 1,2 ABo 03-02-2023 HIV 1,2 Non-Reactive Normal NONREACTIVE [facility] Comment on above: Performed By: #### A CBC, FEPRO ####Testing performed at [address] [address] IRON PROFILEon 03-02-2023 IRON BINDING 235 UG/DL Low 250-450 [facility] Comment on above: Performed By: #### A CBC, FEPRO #### Testing performed at [address] [address] TRANSFERRIN SATURATION,CALCULATE D 32 % Normal [facility] Comment on above: Performed By: #### A CBC, FEPRO #### Testing performed at [place] [id number] Iron [Mass/Vol] 75 ug/dL Normal 49-181 [facility] Comment on above: Performed By: #### A CBC, FEPRO #### Testing performed at [place] [id number] LAST DOSEon 03-02-2023 LAST DOSE 7.11.23 @1500 Normal [facility] MAGNESIUMon 03-02-2023 Magnesium [Mass/Vol] 1.8 mg/dL Normal 1.6-2.3 [facility] Comment on above: Performed By: #### A CBC, FEPRO ####Testing performed at [address] [address] RENAL PANEL,FASTINGon 2022 ALBUMIN 2.6 G/dl Low 3.5-5.0 [facility] Comment on above: Performed By: #### A CBC, FEPRO ####Testing performed at [address] [address] Calcium [Mass/Vol] 7.9 mg/dL Low 8.4-10.2 [facility] Comment on above: Performed By: #### A CBC, FEPRO ####Testing performed at [address] [address] Chloride [Moles/Vol] 114 mmol/L High 98-107 [facility] Comment on above: Result Comment: Krystian boyd note: Triglyceride levels of 600mg/dL or higher may positively bias chloride results by approximately 2.1 mmol Performed By: #### A CBC, FEPRO ####Testing performed at [address] [address] CO2 [Moles/Vol] 27 mmol/L Normal 22-30 [facility] Comment on above: Performed By: #### A CBC, FEPRO ####Testing performed at [address] [address] Creatinine [Mass/Vol] 0.50 mg/dL Low 0.7-1.2 [facility] Comment on above: Performed By: #### A CBC, FEPRO ####Testing performed at [address] [place] [address] EST. GFR, 221 ml/min/1.73sq.m [facility] Comment on above: Performed By: #### A CBC, FEPRO ####Testing performed at [address] [address] EST. GFR,Non 183 ml/min/1.73sq.m [facility] Comment on above: Performed By: #### A CBC, FEPRO ####Testing performed at [address] [address] GFR Information Average GFR for 50-5 9 years old = 93. Normal [facility] Comment on above: Result Comment: Security And Compliance Analyst kaveh Kidney disease, GFR = <60. Kidney failure, GFR = <15. The GFR estimate is not adjusted for extreme body surface area or acute process, nor has it been validated for women or ethnic groups other than and . Performed By: #### A CBC, FEPRO ####Testing performed at [address] [address] Glucose [Mass/Vol] 87 mg/dL Normal 70-100 [facility] Comment on above: Result Comment: NORMAL <100 mg/dL PREDIABETES 101-126 mg/dL DIABETES 126 mg/dL or higher Performed By: #### A CBC, FEPRO ####Testing performed at [address] [address] PHOSPHOROUS 2.9 MG/DL Normal 2.5-4.5 [facility] Comment on above: Performed By: #### A CBC, FEPRO ####Testing performed at [address] [address] Potassium [Moles/Vol] 4.1 mmol/L Normal 3.5-5.1 [facility] Comment on above: Performed By: #### A CBC, FEPRO ####Testing performed at [address] [address] Sodium [Moles/Vol] 137 mmol/L Normal 137-145 [facility] Comment on above: Performed By: #### A CBC, FEPRO ####Testing performed at [address] [address] Urea nitrogen [Mass/Vol] 13 mg/dL Normal 7-20 [facility] Comment on above: Performed By: #### A CBC, FEPRO ####Testing performed at [address] [address] RETIC COUNTon 03-02-2023 RETIC COUNT 2.21 % Normal 0.50-2.30 [facility] Comment on above: Performed By: #### A CBC, FEPRO #### Testing performed at [place] [id number] [place] [address] VANCOMYCIN RANDOMon 03-02-20 23 VANCOMYCIN RANDOM 13.4 UG/ML Normal 5.0-20 [facility] VANCOMYCIN TROUGHon 03-02-20 23 VANCOMYCIN TROUGH 22.9 UG/ML High 15-20 [facility] C REACTIVE PROTEINon 023 CRP [Mass/Vol] 13.5 mg/L High 0-10 [facility] Comment on above: Performed By: #### L STR #### Testing performed at [facility] CBCon 03-01-2023 DTYPE MANUAL DIFF Normal [facility] Comment on above: Performed By: #### L STR #### Testing performed at [facility] Eosinophils/100 WBC (Bld) 1 % Normal 0.0-11.0 [facility] Comment on above: Performed By: #### L STR #### Testing performed at [facility] Lymphocytes/100 WBC (Bld) 41 % Normal 20.0-55.0 [facility] Comment on above: Performed By: #### L STR #### Testing performed at [facility] Monocytes/100 WBC (Bld) 2 % Normal 0.0-10.0 [facility] Comment on above: Performed By: #### L STR #### Testing performed at [facility] Neutrophils/100 WBC (Bld) 56 % Normal 37.0-75.0 [facility] Comment on above: Performed By: #### L STR #### Testing performed at [facility] PLATELET COMMENT DECREASED Normal [facility] Comment on above: Performed By: #### L STR #### Testing performed at [facility] RBC morphology finding Nom (Bld) ANISOCYTE Normal [facility] Comment on above: Performed By: #### L STR #### Testing performed at [facility] Erythrocyte distribution width (RBC) [Ratio] 16.7 % High 11.5-14.5 [facility] Comment on above: Performed By: #### L STR #### Testing performed at [facility] Hematocrit (Bld) [Volume fraction] 27.4 % Low 42.0-52.0 [facility] Comment on above: Performed By: #### L STR #### Testing performed at [facility] Hemoglobin (Bld) [Mass/Vol] 8.8 g/dL Low 14.0-18.0 [facility] Comment on above: Performed By: #### L STR #### Testing performed at [facility] MCH (RBC) [Entitic mass] 23.1 pg Low 26.0-35.0 [facility] Comment on above: Performed By: #### L STR #### Testing performed at [facility] MCHC (RBC) [Mass/Vol] 32.1 g/dL Normal 27.0-37.0 [facility] Comment on above: Performed By: #### L STR #### Testing performed at [facility] MCV (RBC) [Entitic vol] 72.1 fL Low 80.0-100.0 [facility] Comment on above: Performed By: #### L STR #### Testing performed at [facility] Platelet mean volume (Bld) [Entitic vol] 7.7 fL Normal 7.4-11.0 [facility] Comment on above: Performed By: #### L STR #### Testing performed at [facility] Platelets (Bld) [#/Vol] 85 10*3/uL Low 130-400 [facility] Comment on above: Performed By: #### L STR #### Testing performed at [facility] RBC (Bld) [#/Vol] 3.81 10*6/uL Low 4.0-6.1 [facility] Comment on above: Performed By: #### L STR #### Testing performed at [facility] WBC (Bld) [#/Vol] 2.0 10*3/uL Low 3.6-11.0 [facility] Comment on above: Performed By: #### L STR #### Testing performed at [facility] ESRon 03-01-2023 ESR (Bld) [Velocity] 24 mm/h High 0-20 [facility] Comment on above: Performed By: #### L STR #### Testing performed at [facility] HCV RNA HERMAN QUAL RFX TO ABBIE Ton 03-01-2023 HCV RNA, QUANT Not detected Normal [facility] Comment on above: Result Comment: No e vidence of active HCV infection. Unit: IU/mL Performed By: #### A CBC ####[place] [address]#### LHCVF, LHCV ####Testing performed at [facility] TEST INFORMATION Comment Normal [facility] Comment on above: Result Comment: (NOT E) The quantitative range of this assay is 15 IU/mL to 100 million IU/mL. PERFORMED AT [facility] Performed By: #### A CBC ####[place] [address]#### LHCVF, LHCV ####Testing performed at [facility] LAST DOSEon 03-01-2023 LAST DOSE 7.11.23 @1500 Normal [facility] MAGNESIUMon 03-01-2023 Magnesium [Mass/Vol] 2.0 mg/dL Normal 1.6-2.3 [facility] Comment on above: Performed By: #### L STR #### Testing performed at [facility] RAPID TOX SCREEN,URINEon AMPHETAMINE Negative Normal NEGATIVE [facility] Comment on above: Result Comment: <500 ng/ml CUTOFF BARBITURATES Negative Normal NEGATIVE [facility] Comment on above: Result Comment: <200 ng/ml CUTOFF BENZODIAZEPINES Positive Abnormal NEGATIVE [facility] Comment on above: Result Comment: <150 ng/ml CUTOFF *Unconfirmed Screening Result* Unconfirmed screening results are to be used only for medical treatment purposes. BUPRENORPHINE Positive Abnormal NEGATIVE [facility] Comment on above: Result Comment: <10 ng/ml CUTOFF *Unconfirmed Screening Result* Unconfirmed screening results are to be used only for medical treatment purposes. CANNABINOIDS Negative Normal NEGATIVE [facility] Comment on above: Result Comment: <50 ng/ml CUTOFF COCAINE Positive Abnormal NEGATIVE [facility] Comment on above: Result Comment: <150 ng/ml CUTOFF *Unconfirmed Screening Result* Unconfirmed screening results are to be used only for medical treatment purposes. FENTANYL Negative Normal NEGATIVE [facility] Comment on above: Result Comment: 20 n g/mL CUTOFF *Unconfirmed Screening Result* Unconfirmed screening results are to be used only for medical treatment purposes. This test has not been approved by the FDA. METHADONE Negative Normal NEGATIVE [facility] Comment on above: Result Comment: <200 ng/ml CUTOFF METHAMPHETAMINE Negative Normal NEGATIVE [facility] Comment on above: Result Comment: <500 ng/ml CUTOFF OPIATES Positive Abnormal NEGATIVE [facility] Comment on above: Result Comment: <100 ng/ml CUTOFF *Unconfirmed Screening Result* Unconfirmed screening results are to be used only for medical treatment purposes. OXYCODONE Negative Normal NEGATIVE [facility] Comment on above: Result Comment: <100 ng/ml CUTOFF PHENCYCLIDINE Negative Normal NEGATIVE [facility] Comment on above: Result Comment: <25 ng/ml CUTOFF PROPOXYPHENE Negative Normal NEGATIVE [facility] Comment on above: Result Comment: <300 ng/ml CUTOFF TRICYCLIC ANTIDEPRESSANTS Negative Normal NEGATIVE [facility] Comment on above: Result Comment: <300 ng/ml CUTOFF RENAL PANEL,FASTINGon 2022 ALBUMIN 2.6 G/dl Low 3.5-5.0 [facility] Comment on above: Performed By: #### L STR #### Testing performed at [facility] Calcium [Mass/Vol] 7.5 mg/dL Low 8.4-10.2 [facility] Comment on above: Performed By: #### L STR #### Testing performed at [facility] Chloride [Moles/Vol] 108 mmol/L High 98-107 [facility] Comment on above: Result Comment: Plea se note: Triglyceride levels of 600mg/dL or higher may positively bias chloride results by approximately 2.1 mmol Performed By: #### L STR #### Testing performed at [facility] CO2 [Moles/Vol] 25 mmol/L Normal 22-30 [facility] Comment on above: Performed By: #### L STR #### Testing performed at [facility] Creatinine [Mass/Vol] 0.49 mg/dL Low 0.7-1.2 [facility] Comment on above: Performed By: #### L STR #### Testing performed at [facility] EST. GFR, 226 ml/min/1.73sq.m [facility] Comment on above: Performed By: #### L STR #### Testing performed at [facility] EST. GFR,Non 187 ml/min/1.73sq.m [facility] Comment on above: Performed By: #### L STR #### Testing performed at [facility] GFR Information Average GFR for 50-5 9 years old = 93. Normal [facility] Comment on above: Result Comment: Security And Compliance Analyst kvaeh Kidney disease, GFR = <60. Kidney failure, GFR = <15. The GFR estimate is not adjusted for extreme body surface area or acute process, nor has it been validated for women or ethnic groups other than and . Performed By: #### L STR #### Testing performed at [facility] Glucose [Mass/Vol] 116 mg/dL High 70-100 [facility] Comment on above: Result Comment: NORMAL <100 mg/dL PREDIABETES 101-126 mg/dL DIABETES 126 mg/dL or higher Performed By: #### L STR #### Testing performed at [facility] PHOSPHOROUS 3.0 MG/DL Normal 2.5-4.5 [facility] Comment on above: Performed By: #### L STR #### Testing performed at [facility] Potassium [Moles/Vol] 4.1 mmol/L Normal 3.5-5.1 [facility] Comment on above: Performed By: #### L STR #### Testing performed at [facility] Sodium [Moles/Vol] 137 mmol/L Normal 137-145 [facility] Comment on above: Performed By: #### L STR #### Testing performed at [facility] Urea nitrogen [Mass/Vol] 15 mg/dL Normal 7-20 [facility] Comment on above: Performed By: #### L STR #### Testing performed at [facility] C REACTIVE PROTEINon CRP [Mass/Vol] 19.5 mg/L High 0-10 [facility] Comment on above: Performed By: #### L STR #### Testing performed at [facility] CBCon 02-28-2023 Basophils/100 WBC (Bld) 1 % Normal 0.0-2.0 [facility] Comment on above: Performed By: #### L STR #### Testing performed at [facility] DTYPE MANUAL DIFF Normal [facility] Comment on above: Performed By: #### L STR #### Testing performed at [facility] Eosinophils/100 WBC (Bld) 5 % Normal 0.0-11.0 [facility] Comment on above: Performed By: #### L STR #### Testing performed at [facility] Lymphocytes/100 WBC (Bld) 34 % Normal 20.0-55.0 [facility] Comment on above: Performed By: #### L STR #### Testing performed at [facility] Monocytes/100 WBC (Bld) 3 % Normal 0.0-10.0 [facility] Comment on above: Performed By: #### L STR #### Testing performed at [facility] Neutrophils/100 WBC (Bld) 57 % Normal 37.0-75.0 [facility] Comment on above: Performed By: #### L STR #### Testing performed at [facility] PLATELET COMMENT DECREASED Normal [facility] Comment on above: Performed By: #### L STR #### Testing performed at [facility] RBC morphology finding Nom (Bld) 1+ Normal [facility] Comment on above: Result Comment: MICR OCYTOSIS 1+ ANISOCYTE 1+ POIKILOCYTE Performed By: #### L STR #### Testing performed at [facility] Erythrocyte distribution width (RBC) [Ratio] 16.4 % High 11.5-14.5 [facility] Comment on above: Performed By: #### L STR #### Testing performed at [facility] Hematocrit (Bld) [Volume fraction] 29.3 % Low 42.0-52.0 [facility] Comment on above: Performed By: #### L STR #### Testing performed at [facility] Hemoglobin (Bld) [Mass/Vol] 9.4 g/dL Low 14.0-18.0 [facility] Comment on above: Performed By: #### L STR #### Testing performed at [facility] MCH (RBC) [Entitic mass] 23.1 pg Low 26.0-35.0 [facility] Comment on above: Performed By: #### L STR #### Testing performed at [facility] MCHC (RBC) [Mass/Vol] 31.9 g/dL Normal 27.0-37.0 [facility] Comment on above: Performed By: #### L STR #### Testing performed at [facility] MCV (RBC) [Entitic vol] 72.3 fL Low 80.0-100.0 [facility] Comment on above: Performed By: #### L STR #### Testing performed at [facility] Platelet mean volume (Bld) [Entitic vol] 7.7 fL Normal 7.4-11.0 [facility] Comment on above: Performed By: #### L STR #### Testing performed at [facility] Platelets (Bld) [#/Vol] 91 10*3/uL Low 130-400 [facility] Comment on above: Performed By: #### L STR #### Testing performed at [facility] RBC (Bld) [#/Vol] 4.05 10*6/uL Normal 4.0-6.1 [facility] Comment on above: Performed By: #### L STR #### Testing performed at [facility] WBC (Bld) [#/Vol] 1.7 10*3/uL Critically low 3.6-11.0 [facility] Comment on above: Result Comment: CALL ED TO AND READ BACK BY HARDY HUTCHINSRN AT 0523 KKM Performed By: #### L STR #### Testing performed at [facility] ESRon 02-28-2023 ESR (Bld) [Velocity] 35 mm/h High 0-20 [facility] Comment on above: Performed By: #### L STR #### Testing performed at [facility] LAST DOSEon 02-28-2023 LAST DOSE 02.28.23 @1314 Normal [facility] MAGNESIUMon 02-28-2023 Magnesium [Mass/Vol] 2.2 mg/dL Normal 1.6-2.3 [facility] Comment on above: Performed By: #### A CBC ####Testing performed at [place] [address] [place] [address]#### LHCVF, LHCV ####Testing performed at [facility] RENAL PANEL,FASTINGon 2022 ALBUMIN 2.7 G/dl Low 3.5-5.0 [facility] Comment on above: Performed By: #### L STR #### Testing performed at [facility] Calcium [Mass/Vol] 7.6 mg/dL Low 8.4-10.2 [facility] Comment on above: Performed By: #### L STR #### Testing performed at [facility] Chloride [Moles/Vol] 107 mmol/L Normal 98-107 [facility] Comment on above: Result Comment: Plea note: Triglyceride levels of 600mg/dL or higher may positively bias chloride results by approximately 2.1 mmol Performed By: #### L STR #### Testing performed at [facility] CO2 [Moles/Vol] 27 mmol/L Normal 22-30 [facility] Comment on above: Performed By: #### L STR #### Testing performed at [facility] Creatinine [Mass/Vol] 0.51 mg/dL Low 0.7-1.2 [facility] Comment on above: Performed By: #### L STR #### Testing performed at [facility] EST. GFR, 216 ml/min/1.73sq.m [facility] Comment on above: Performed By: #### L STR #### Testing performed at [facility] EST. GFR,Non 179 ml/min/1.73sq.m [facility] Comment on above: Performed By: #### L STR #### Testing performed at [facility] GFR Information Average GFR for 50-5 9 years old = 93. Normal [facility] Comment on above: Result Comment: Security And Compliance Analyst kaveh Kidney disease, GFR = <60. Kidney failure, GFR = <15. The GFR estimate is not adjusted for extreme body surface area or acute process, nor has it been validated for women or ethnic groups other than and . Performed By: #### L STR #### Testing performed at [facility] Glucose [Mass/Vol] 152 mg/dL High 70-100 [facility] Comment on above: Result Comment: NORMAL <100 mg/dL PREDIABETES 101-126 mg/dL DIABETES 126 mg/dL or higher Performed By: #### L STR #### Testing performed at [facility] PHOSPHOROUS 2.9 MG/DL Normal 2.5-4.5 [facility] Comment on above: Performed By: #### L STR #### Testing performed at [facility] Potassium [Moles/Vol] 3.7 mmol/L Normal 3.5-5.1 [facility] Comment on above: Performed By: #### L STR #### Testing performed at [facility] Sodium [Moles/Vol] 137 mmol/L Normal 137-145 [facility] Comment on above: Performed By: #### L STR #### Testing performed at [facility] Urea nitrogen [Mass/Vol] 16 mg/dL Normal 7- [facility] Comment on above: Performed By: #### L STR #### Testing performed at [facility] US DUPLEX EXTREMITY DVT MARCUS Powers [...] 2. Shotty bilateral inguinal lymph nodes. Normal [facility] VANCOMYCIN TROUGHon 02-29-20 23 VANCOMYCIN TROUGH 19.5 UG/ML Normal - [facility] VANCOMYCIN TROUGH 16.0 UG/ML Normal 15-20 [facility] BLOOD CULTUREon 02-27-2023 Bacteria identified Cx Nom (Bld) SPECIMEN DESCRIPTION PERIPHERAL BLOOD DRAW SPECIAL REQUESTS right wrist CULTURE NO GROWTH 5 DAYS * Result Note: Testing performed at [place] [address] * REPORT STATUS 03/04/2023 * Result Note: FINAL * Normal [facility] Comment on above: Performed By: #### L STR #### Testing performed at [facility] Bacteria identified Cx Nom (Bld) SPECIMEN DESCRIPTION PERIPHERAL BLOOD DRAW SPECIAL REQUESTS LEFT FORARM CULTURE NO GROWTH 5 DAYS * Result Note: Testing performed at [place] [address] * REPORT STATUS 03/04/2023 * Result Note: FINAL * Normal [facility] Comment on above: Performed By: #### B LC #### Testing performed at [facility] [address] [place] [address] Testing performed at [place] [id number] C REACTIVE PROTEINon 023 CRP [Mass/Vol] 25.1 mg/L High 0-10 [facility] ESRon 02-27-2023 ESR (Bld) [Velocity] 32 mm/h High 0-20 [facility] HEMOGLOBIN A1Con 02-27-2023 Glucose [Mass/Vol] 91 mg/dL Normal [facility] HbA1c (Bld) [Mass fraction] 4.8 % Normal 0-6 [facility] Comment on above: Result Comment: NORMAL <5.7% PREDIABETES 5.7-6.4% DIABETES 6.5% OR HIGHER LACTATE,BLOODon 02-27-2023 Lactate [Moles/Vol] 1.0 mmol/L Normal 0.7-2.0 [facility] MRSA SCREENon 02-27-2023 MRSA DNA HERMAN+probe Ql (Unsp spec) Negative Normal NEGATIVE [facility] STAPH AUREUS SCREEN Positive Abnormal NEGATIVE [facility] Comment on above: Result Comment: TEST ING PERFORMED BY PCR PROCALCITONINon 02-27-2023 PROCALCITONIN 0.07 ng/mL Normal 0.00-0.49 [facility] Comment on above: Result Comment: PCT [...] 6 to 24 hours. Testing performed at [place] [address] Performed By: #### P CT #### Testing performed at [place] [id number] CBC, EDIF, PLATELETon 2022 ABSOLUTE BASOPHIL COUNT 0.0 10*3/uL 0.0 - 0.2 10*3/uL [facility] Basophils/100 WBC (Bld) 0.2 % 0.0 - 2.0 % [facility] Differential cell count method Nom (Bld) AUTO DIFF % [facility] Eosinophils (Bld) [#/Vol] 0.1 10*3/uL 0.0 - 0.7 10*3/uL [facility] Eosinophils/100 WBC (Bld) 2.0 % 0.0 - 11.0 % [facility] Erythrocyte distribution width (RBC) [Ratio] 16.6 % High 11.5 - 14.5 % [facility] Hematocrit (Bld) [Volume fraction] 31.8 % Low 42.0 - 52.0 % [facility] Hemoglobin (Bld) [Mass/Vol] 10.0 g/dL Low [facility] Interpretation and review of laboratory results Abnormal [facility] Lymphocytes (Bld) [#/Vol] 0.6 10*3/uL Low 1.2 - 3.4 10*3/uL [facility] Lymphocytes/100 WBC (Bld) 19.7 % Low 20.0 - 55.0 % [facility] MCH (RBC) [Entitic mass] 22.5 pg Low 26.0 - 35.0 PG [facility] MCHC (RBC) [Mass/Vol] 31.4 g/dL [facility] MCV (RBC) [Entitic vol] 71.5 fL Low [facility] Monocytes (Bld) [#/Vol] 0.3 10*3/uL 0.0 - 0.7 10*3/uL [facility] Monocytes/100 WBC (Bld) 10.5 % High 0.0 - 10.0 % [facility] Neutrophils (Bld) [#/Vol] 1.9 10*3/uL 1.4 - 6.5 10*3/uL [facility] Neutrophils/100 WBC (Bld) 67.6 % 37.0 - 75.0 % [facility] Platelet mean volume (Bld) [Entitic vol] 8.5 fL [facility] Platelets (Bld) [#/Vol] 104 10*3/uL Low 130 - 400 10*3/uL [facility] RBC (Bld) [#/Vol] 4.44 10*6/uL 4.0 - 6.1 10*6/uL [facility] WBC (Bld) [#/Vol] 2.9 10*3/uL Low 3.6 - 11.0 10*3/uL [facility] COMPREHENSIVE METABOLIC PANE Ras 02-26-2023 Albumin [Mass/Vol] 3.2 G/dl Low 3.5 - 5.0 G/dl [facility] Albumin/Globulin [Mass ratio] 0.8 {ratio} RATIO [facility] ALP [Catalytic activity/Vol] 54 U/L [facility] ALT [Catalytic activity/Vol] 17 U/L NINF [facility] AST [Catalytic activity/Vol] 26 U/L [facility] Bilirubin [Mass/Vol] 1.1 mg/dL [facility] Calcium [Mass/Vol] 8.0 mg/dL Low [facility] Chloride [Moles/Vol] 100 mmol/L [facility] Comment on above: Please note: Triglyc eride levels of 600mg/dL or higher may positively bias chloride results by approximately 2.1 mmol CO2 [Moles/Vol] 31 mmol/L High [facility] Creatinine [Mass/Vol] 0.58 mg/dL Low [facility] GFR COMMENT Average GFR for 50-5 9 years old = 93. [facility] Comment on above: Chronic Kidney disea se, GFR = <60. Kidney failure, GFR = <15. The GFR estimate is not adjusted for extreme body surface area or acute process, nor has it been validated for women or ethnic groups other than and . GFR/1.73 sq M.predicted among blacks MDRD (S/P/Bld) [Vol rate/Area] 186 mL/min/{1.73_m2} ml/min/1.73s q.m [facility] GFR/1.73 sq M.predicted among non-blacks MDRD (S/P/Bld) [Vol rate/Area] 154 mL/min/{1.73_m2} ml/min/1.73s q.m [facility] Glucose post fast [Mass/Vol] 129 mg/dL High [facility] Comment on above: NORMAL <100 mg/dL PREDIABETES 101-126 mg/dL DIABETES 126 mg/dL or higher Interpretation and review of laboratory results Abnormal [facility] Potassium [Moles/Vol] 3.8 mmol/L [facility] Protein [Mass/Vol] 7.4 g/dL [facility] Sodium [Moles/Vol] 138 mmol/L [facility] Urea nitrogen [Mass/Vol] 17 mg/dL [facility] LACTATE, BLOODon 02-26-2023 Interpretation and review of laboratory results Abnormal [facility] Lactate [Moles/Vol] 3.0 mmol/L Critically high 0.7 - 2.0 mmol/L [facility] Comment on above: PLEASE REPEAT INITIA L CRITICAL IN 3 HOURS IF ED OR INPATIENT SEPSIS PATIENT Result called to read back by: CICI 02/26/2023 @ 21:48 by RAJAN [facility] MAGNESIUMon 02-26-2023 Magnesium [Mass/Vol] 1.9 mg/dL [facility] No Panel Informationon 02-26 [facility] PROTIME-INRon 02-26-2023 INR Coag (PPP) [Relative time] 1.25 {INR} High 0.85 - 1.10 [facility] Comment on above: 2.0-3.0 THERAPEUTIC RANGE 2.5-3.5 MECHANICAL VALVE RANGE Interpretation and review of laboratory results Abnormal [facility] PT Coag (PPP) [Time] 15.8 s High [facility] WOUND DEBRIDEMENTon 01-19-20 KIEL Hoff 01/18/2023 [...] with the proposed plan, giving informed consent. [facility] Protocol required: Yes. [facility] Protocol is required. Preprocedure verification is complete [...] treatment: Procedure was tolerated well Complications: None [facility] Radiology Study observation (narrative) [facility] WOUND CULTUREon 12-31-2022 WOUND CULTURE SPECIMEN DESCRIPTION [...] REFERENCE MANUAL OF CLINICAL MICROBIOLOGY 7TH EDITION 1998 [id number] * * Result Note: THE GLYCOPEPTIDES AND LIPOPEPTIDES (VANCOMYCIN IN PARTICULAR) AND THE MACROLIDES ERYTHROMYCIN, CLARITHROMYCIN AND AZITHROMYCIN HAVE SHOWN ACTIVITY AGAINST CORYNEBACTERIUM SP. (MANUAL OF CLINICAL MICROBIOLOGY Y, ET. AL. [id number]). * * Result Note: ENTEROCOCCUS FAECALIS GROUP D * * Result Note: MODERATE GROWTH * * Result Note: Testing performed at [place], [place] [address] * REPORT STATUS 12/31/2022 * Result Note: FINAL * ORGANISM ENTEROCOCCUS FAECALIS GROUP D * Result Note: ENTEROCOCCUS FAECALIS GROUP D * METHOD LIV AMPICILLIN <=2 SUSCEPTIBLE PENICILLIN G 2 SUSCEPTIBLE VANCOMYCIN 1 SUSCEPTIBLE GENTAMICIN HIGH LEVEL RESISTANT STREPTOMYCIN HIGH LEVEL RESISTANT Normal [facility] Comment on above: Performed By: #### M Abbi, ACBC, RENF, LIVR #### Testing performed at [address] [address] CELLULAR AND TISSUE-BASED OR ODUCT WOUND CAREon 12-28-2022 KIEL Hoff 12/28/2022 [...] Tolerated well, no immediate complications Complications: None [facility] Radiology Study observation (narrative) [facility] CELLULAR AND TISSUE-BASED OR ODUCT WOUND CAREon 12-21-2022 KIEL Hoff 12/21/2022 [...] Tolerated well, no immediate complications Complications: None [facility] Radiology Study observation (narrative) [facility] CT Head WO contraston 2022 IMPRESSION: 1. [...] scalp, possibly representing a contusion or scarring. [facility] Radiology Study observation (narrative) [facility] CT Head WO contrastOrdered B y: Dee David on 12-08-2022 [facility] Work Phone: DIAGNOSTIC UPPER ENDOSCOPYon 10-21-2022 [facility] Gastroenterology Patient Name: Carmen Gilman Procedure Date: 10/21/2022 1:12 PM Date of : 1965 Admit Type: Outpatient Age: 57 Room: Procedure Room #2 Gender: Male Note Status: Finalized Attending MD: Antony Suarez Jr., DO, [id number] Instrument Name: [id number] Procedure: Upper GI endoscopy Attending Participation: I personally performed the entire procedure. 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 Estimated Blood [...] previous diet. Procedure Code(s): --- Professional --- 28872, Esophagogastroduodenoscopy, flexible, transoral; diagnostic, including collection of specimen(s) by brushing or washing, when performed (separate procedure) Diagnosis Code(s): --- Professional --- K74.60, Unspecified cirrhosis of liver I85.10, Secondary esophageal varices without bleeding K76.6, Portal hypertension K31.89, Other diseases of stomach and duodenum CPT copyright 2021 [employer]. All rights reserved. The codes documented in this report are preliminary and upon co (more content not included)... LAB, [facility] Radiology Study observation (narrative) [facility] CBC Auto Differentialon 03-24 Erythrocyte distribution width (RBC) [Entitic vol] 16.0 % High 11.6 - 14.8 % [facility] Hematocrit (Bld) [Volume fraction] 28.3 % Low 41 - 53 % [facility] Hemoglobin (Bld) [Mass/Vol] 8.9 g/dL Low 13.5 - 17.5 g/dL [facility] MCH (RBC) [Entitic mass] 21.5 pg Low 26 - 34 pg [facility] MCHC (RBC) [Mass/Vol] 31.4 g/dL 31 - 37 g/dL [facility] MCV (RBC) [Entitic vol] 68.5 fL Low 80 - 100 fL [facility] Nucleated RBC (Bld) [#/Vol] 0.00 10*3/uL [facility] Nucleated RBC/100 WBC (Bld) [Ratio] 0.0 % [facility] Platelets (Bld) [#/Vol] 85 10*3/uL Low [facility] RBC (Bld) [#/Vol] 4.13 10*6/uL Low [facility] WBC (Bld) [#/Vol] 2.02 10*3/uL Low [facility] CBC and Diff Morphologyon Ovalocytes LM Ql (Bld) Few [facility] RBC morphology finding Nom (Bld) See Comment [facility] Comment on above: RBC Indices confirme d with manual peripheral smear review. [facility] CRP [Mass/Vol]on 04-21-2022 Interpretation and review of laboratory results Abnormal [facility] CRP, Inflammationon 04-21-20 CRP [Mass/Vol] 19.0 mg/L High NINF - 10.0 mg/L [facility] ESR Westergren method (Bld) [Velocity]on 04-21-2022 ESR (Bld) [Velocity] 57 mm/h High [facility] Interpretation and review of laboratory results Abnormal [facility] HbA1c (Bld) [Mass fraction]O rdered By: Camelia Romero on 04-21-2022 Average glucose Estimated from glycated hemoglobin (Bld) [Mass/Vol] 123 mg/dL High 68 - 114 mg/dL [facility] Interpretation and review of laboratory results Abnormal [facility] Normal: 4.0% - 5.6% Increased risk for diabetes: 5.7% - 6.4% Diabetes: >= 6.5% Pediatrics: No established reference range Estimated average glucose: 68-114 mg/dL [facility] Hemoglobin [id number] By: Libby Romero on 04-21-2022 HbA1c (Bld) [Mass fraction] 5.9 % High 4 - 5.6 % [facility] Magnesiumon 04-21-2022 Magnesium [Mass/Vol] 2.5 mg/dL High 1.6 - 2 .4 mg/dL [facility] Magnesium [Mass/Vol]on 04-21 Interpretation and review of laboratory results Abnormal [facility] Manual Differential panel (B ld)on 04-21-2022 Basophils (Bld) [#/Vol] 0.00 10*3/uL [facility] Basophils/100 WBC (Bld) 0.0 % [facility] Eosinophils (Bld) [#/Vol] 0.05 10*3/uL [facility] Eosinophils/100 WBC (Bld) 2.6 % [facility] Lymphocytes (Bld) [#/Vol] 0.40 10*3/uL Low [facility] Lymphocytes/100 WBC (Bld) 20.0 % [facility] Monocytes (Bld) [#/Vol] 0.05 10*3/uL Low [facility] Monocytes/100 WBC (Bld) 2.6 % [facility] Neutrophils (Bld) [#/Vol] 1.51 10*3/uL Low [facility] Neutrophils/100 WBC (Bld) 74.8 % [facility] No Panel Informationon 04-21 Interpretation and review of laboratory results Abnormal [facility] 1. Bilateral subcutaneous edema. 2. No acute fracture or dislocation identified in either knee. 3. Total right knee arthroplasty in place. [facility] Workstation ID: [id number] [facility] RIS EXAMINATION: XR KNEE LEFT 2 VIEWS (STANDARD); XR KNEE RIGHT 2 VIEWS (STANDARD) 04/20/2022 2:55 pm HISTORY: ORDERING SYSTEM PROVIDED HISTORY: fall, TECHNOLOGIST PROVIDED HISTORY: Injury/Trauma Reason for exam: left knee pain and swelling Cancer History: Surgery, RadiationHistory: unk Encounter Type: Initial Mechanism of injury: fall ORDERING SYSTEM PROVIDED DIAGNOSIS CODES: N17.9 MARLENE (acute kidney injury) (HCC) ; ORDERING SYSTEM PROVIDED HISTORY: fall, TECHNOLOGIST PROVIDED HISTORY: Injury/Trauma Reason for exam: right knee pain and swelling Cancer History: Surgery, RadiationHistory: unk Encounter Type: Initial Mechanism [...] There is edema in the subcutaneous tissues. [facility] RIS Radames Villarreal Ala, DO - 04/21/2022 EXAMINATION: XR KNEE LEFT 2 VIEWS (STANDARD); XR KNEE RIGHT 2 VIEWS (STANDARD) 04/20/2022 2:55 pm HISTORY: ORDERING SYSTEM PROVIDED HISTORY: fall, TECHNOLOGIST PROVIDED HISTORY: Injury/Trauma Reason for exam: left knee pain and swelling Cancer History: Surgery, RadiationHistory: unk Encounter Type: Initial Mechanism of injury: fall ORDERING SYSTEM PROVIDED DIAGNOSIS CODES: N17.9 MARLENE (acute kidney injury) (HCC) ; ORDERING SYSTEM PROVIDED HISTORY: fall, TECHNOLOGIST PROVIDED HISTORY: Injury/Trauma Reason for exam: right knee pain and swelling Cancer History: Surgery, RadiationHistory: unk Encounter Type: Initial Mechanism of injury: fall ORDERING SYSTEM PROVIDED DIAGNOSIS CODES: N17.9 MARLENE (acute kidney injury) ([facility]) COMPARISON: Left knee series October 07, 2021. [...] 3. Total right knee arthroplasty in place. [facility] Workstation ID: [id number] [facility] Renal function 2000 panelon 04-21-2022 Albumin [Mass/Vol] 2.3 g/dL Low 3.2 - 5.2 g/dL [facility] Anion gap [Moles/Vol] 9 mmol/L Low 10 - 20 mmol/L [facility] Calcium [Mass/Vol] 8.4 mg/dL 8.4 - 10. 2 mg/dL [facility] Chloride [Moles/Vol] 108 mmol/L 98 - 10 8 mmol/L [facility] Creatinine [Mass/Vol] 1.40 mg/dL High 0.50 - 1.30 mg/dL [facility] GFR/1.73 sq M.predicted CKD-EPI (S/P/Bld) [Vol rate/Area] 59 Low - PINF [facility] Comment on above: Estimated GFR was ca lculated using the 2020 CKD-EPI creatinine equation. Glucose [Mass/Vol] 104 mg/dL High 65 - 99 mg/dL [facility] HCO3 [Moles/Vol] 28 mmol/L 21 - 32 mmol/L [facility] Interpretation and review of laboratory results Abnormal [facility] Phosphate [Mass/Vol] 3.9 mg/dL 2.7 - 4 .5 mg/dL [facility] Potassium [Moles/Vol] 4.8 mmol/L 3.5 - 5.1 mmol/L [facility] Sodium [Moles/Vol] 140 mmol/L 135 - 145 mmol/L [facility] Urea nitrogen [Mass/Vol] 47 mg/dL High 8 - 25 mg/dL [facility] Urea nitrogen/Creatinine [Mass ratio] 33.6 mg/mg High 10 - 20 [facility] has implemented the eGFR calculation approach that does not have a coefficient for race that conforms to the NKF-ASN Task Force Recommendations. [facility] TSH DL <= 0.005 mIU/L Qnon 0 04-21-2022 Interpretation and review of laboratory results Normal [facility] TSH Qn 1.32 m[IU]/L [facility] US Renal and Bladderon 04-21 1. No hydronephrosis. 2. Splenomegaly. Workstation ID: [id number] theDrop EXAMINATION: US RENAL AND BLADDER HISTORY: ORDERING [...] is enlarged measuring up to 20.8 cm. [facility] Rodolfo Garcia MD - 04/21/2022 EXAMINATION: [...] No hydronephrosis. 2. Splenomegaly. Workstation ID: [id number] [place] Renal and BladderOrdered By: Rodolfo Garcia on 04-21-2022 [facility] Work Phone: Ultrasound duplex venous leg s bilaton 04-21-2022 Patient Info Name: CARMEN GILMAN Age: 56 years : 1965 Gender: Male Exam Date: 04/21/2022 7:12 AM Patient Status: Inpatient Stallion Keeper: Margi Lemon RVT Referring Physician: LINDA Owens; Indications R22.43 - Localized swelling, mass and lump, lower limb, bilateral Procedure Description 71536 Duplex examination using B-mode, color and spectral [...] DOC Menjivar DO on 04/21/2022 01:10 PM [employer] CV Luis Daniel Cao III, DO - 04/21/2022 Patient Info Name: CARMEN GILMAN Age: 56 years : 1965 Gender: Male Exam Date: 04/21/2022 7:12 AM Patient Status: Inpatient Stallion Keeper: Margi Lemon RVT Referring Physician: LINDA Owens; Indications R22.43 - Localized swelling, mass and lump, lower limb, bilateral Procedure Description [id number] Duplex examination using B-mode, color and spectral [...] DOC Menjivar DO on 04/21/2022 01:10 PM [facility] Radiology Study observation (narrative) [facility] Ultrasound duplex venous leg s bilatOrdered By: Luis Daniel Cao on 04-21-2022 [facility] Work Phone: UrinalysisOrdered By: David Vines on 04-21-2022 Bacteria Auto Ql (U) None Seen None Se en /hpf [facility] Bilirubin Ql (U) Negative Negative [facility] th Clarity Refractometry automated (U) Clear Clear [facility] Color (U) Yellow Colorless, Yellow [facility] Glucose Auto test strip (U) [Mass/Vol] Negative Negative mg/dL [facility] Hemoglobin Auto test strip Ql (U) Negative Negative [facility] Interpretation and review of laboratory results Normal [facility] Ketones (U) [Mass/Vol] Negative Negative mg/dL [facility] Leukocyte esterase Auto test strip Ql (U) Negative Negative [facility] Mucus Auto (Urine sed) [#/Area] Rare None Seen, Rare /lpf [facility] Nitrite Auto test strip Ql (U) Negative Negative [facility] pH (U) 6.0 [pH] 5 - 7 [facility] Protein (U) [Mass/Vol] Negative Negative mg/dL [facility] RBC Auto (Urine sed) [#/Area] 1 [facility] Specific gravity (U) [Rel density] 1.014 1.005 - 1.025 [facility] Urobilinogen (U) [Mass/Vol] mg/dL NINF - 2.0 mg/dL [facility] WBC Auto (Urine sed) [#/Area] 1 [facility] Microscopic examinat ion is performed on all urinalysis samples and only positive findings are reported. The test for blood on the chemical analytic portion of urinalysis may also be positive due to hemoglobinuria and myoglobinuria and if red blood cells are present they are quantified by microscopic examination. [facility] XR Chest 1 Viewon 04-21-2022 No acute cardiopulmonary process. [employer] Workstation ID: [id number] theDrop EXAMINATION: XR CHEST PA/AP 04/20/2022 2:55 pm HISTORY: ORDERING SYSTEM PROVIDED HISTORY: hypotension, TECHNOLOGIST PROVIDED HISTORY: Illness/Other Reason for exam: hypotension Cancer History: Surgery, RadiationHistory: unk Encounter Type: Initial Additional [...] left calcaneal humeral joint are again noted. theDrop Radames Villarreal Ala, DO - 04/21/2022 EXAMINATION: XR CHEST PA/AP 04/20/2022 2:55 pm HISTORY: ORDERING SYSTEM PROVIDED HISTORY: hypotension, TECHNOLOGIST PROVIDED HISTORY: Illness/Other Reason for exam: hypotension Cancer History: Surgery, RadiationHistory: unk Encounter Type: Initial Additional [...] again noted. IMPRESSION: No acute cardiopulmonary process. [employer] Workstation ID: [id number] [facility] XR Chest 1 ViewOrdered By: Sandra Villarreal on 04-21-2022 [facility] Work Phone: XR Pelvis 1 View (Standard)o n 04-21-2022 No acute osseous abnormality of the pelvis is identified. JAR[employer] Workstation ID: [id number] GE RIS EXAMINATION: XR PELVIS 1 VIEW (STANDARD) 04/20/2022 2:55 pm HISTORY: ORDERING SYSTEM PROVIDED HISTORY: fall, TECHNOLOGIST PROVIDED HISTORY: Injury/Trauma Reason for exam: fall Cancer History: Surgery, RadiationHistory: unk Encounter Type: Initial Mechanism of injury: fall ORDERING SYSTEM PROVIDED DIAGNOSIS CODES: N17.9 MARLENE (acute kidney injury) (HCC) COMPARISON: None. TECHNIQUE: AP view of the pelvis on 2 films. FINDINGS: Pelvic ring appears intact with no diastasis of the SI joints or pubic symphysis. Femoral heads are well seated in the acetabula. No acute fracture is visible. [facility] Radames Villarreal Ala, DO - 04/21/2022 EXAMINATION: XR PELVIS 1 VIEW (STANDARD) 04/20/2022 2:55 pm HISTORY: ORDERING SYSTEM PROVIDED HISTORY: fall, TECHNOLOGIST PROVIDED HISTORY: Injury/Trauma Reason for exam: fall Cancer History: Surgery, RadiationHistory: unk Encounter Type: Initial Mechanism [...] osseous abnormality of the pelvis is identified. [employer] Workstation ID: [id number] [facility] Alcohol, Medicalon Ethanol [Mass/Vol] mg/dL NINF - 10 .00 mg/dL [facility] Comment on above: Alcohol cutoff: <10. 00 mg/dL = None Detected Basic metabolic 1998 panelon 04-20-2022 Anion gap [Moles/Vol] 10 mmol/L 10 - 20 mmol/L [facility] Chloride [Moles/Vol] 102 mmol/L 98 - 10 8 mmol/L [facility] Creatinine [Mass/Vol] 2.30 mg/dL High 0.50 - 1.30 mg/dL [facility] GFR/1.73 sq M.predicted CKD-EPI (S/P/Bld) [Vol rate/Area] 33 Low - PINF [facility] Comment on above: Estimated GFR was ca lculated using the 2020 CKD-EPI creatinine equation. Glucose [Mass/Vol] 111 mg/dL High 65 - 99 mg/dL [facility] HCO3 [Moles/Vol] 27 mmol/L 21 - 32 mmol/L [facility] Potassium [Moles/Vol] 5.0 mmol/L 3.5 - 5.1 mmol/L [facility] Sodium [Moles/Vol] 134 mmol/L Low 135 - 145 mmol/L [facility] Urea nitrogen [Mass/Vol] 71 mg/dL High 8 - 25 mg/dL [facility] Urea nitrogen/Creatinine [Mass ratio] 30.9 mg/mg High 10 - 20 [facility] has implemented the eGFR calculation approach that does not have a coefficient for race that conforms to the NKF-ASN Task Force Recommendations. [facility] CBC Auto Differentialon 03-24 Erythrocyte distribution width (RBC) [Entitic vol] 16.3 % High 11.6 - 14.8 % [facility] Hematocrit (Bld) [Volume fraction] 31.6 % Low 41 - 53 % [facility] Hemoglobin (Bld) [Mass/Vol] 10.0 g/dL Low 13.5 - 17.5 g/dL [facility] MCH (RBC) [Entitic mass] 21.7 pg Low 26 - 34 pg [facility] MCHC (RBC) [Mass/Vol] 31.6 g/dL 31 - 37 g/dL [facility] MCV (RBC) [Entitic vol] 68.7 fL Low 80 - 100 fL [facility] Nucleated RBC (Bld) [#/Vol] 0.00 10*3/uL [facility] Nucleated RBC/100 WBC (Bld) [Ratio] 0.0 % [facility] Platelets (Bld) [#/Vol] 102 10*3/uL Low [facility] RBC (Bld) [#/Vol] 4.60 10*6/uL [facility] WBC (Bld) [#/Vol] 3.28 10*3/uL Low [facility] CBC and Diff Morphologyon RBC morphology finding Nom (Bld) See Comment [facility] Comment on above: RBC Indices confirme d with manual peripheral smear review. EKGon 04-20-2022 Ordered by an unspec ified provider. [facility] EKG 12-leadon 04-20-2022 Carolina Solis MD 04/20/2022 3:15 PM EKG 12-lead Date/Time: 04/20/2022 3:15 PM Performed by: Carolina Solis MD Authorized by: Carolina Solis MD Interpreted by ED attending physician Comparison: not compared with previous ECG Rhythm: sinus rhythm BPM: 69 Conduction: conduction normal ST Segments: ST segments normal T Inversion: V2 normal OR interval normal QRS interval normal QT interval Clinical impression: non-specific ECG MUSE [facility] Ethanol [Mass/Vol]on 022 Interpretation and review of laboratory results Normal [facility] Hepatic function 2000 panelo n 04-20-2022 Albumin [Mass/Vol] 2.8 g/dL Low 3.2 - 5.2 g/dL [facility] ALP [Catalytic activity/Vol] 58 U/L 40 - 150 U/L [facility] ALT [Catalytic activity/Vol] 27 U/L 14 - 65 U/L [facility] AST [Catalytic activity/Vol] 30 U/L 0 - 45 U/L [facility] Bilirubin [Mass/Vol] 0.8 mg/dL 0 - 1.3 mg/dL [facility] Bilirubin.conjugated [Mass/Vol] 0.2 mg/dL 0 - 0.4 mg/dL [facility] Protein [Mass/Vol] 8.1 g/dL High 6 - 8 g/dL [facility] alth Lactate [Moles/Vol]on 2021 Interpretation and review of laboratory results Normal [facility] Lactic Acid, Plasmaon 2021 Lactate [Moles/Vol] 1.2 mmol/L 0.6 - 2 mmol/L [facility] Manual Differential panel (B ld)on 08-30-2022 Basophils (Bld) [#/Vol] 0.00 10*3/uL [facility] Basophils/100 WBC (Bld) 0.0 % [facility] Eosinophils (Bld) [#/Vol] 0.03 10*3/uL [facility] Eosinophils/100 WBC (Bld) 0.9 % [facility] Lymphocytes (Bld) [#/Vol] 0.60 10*3/uL Low [facility] Lymphocytes/100 WBC (Bld) 18.3 % [facility] Monocytes (Bld) [#/Vol] 0.26 10*3/uL Low [facility] Monocytes/100 WBC (Bld) 7.8 % [facility] Neutrophils (Bld) [#/Vol] 2.39 10*3/uL [facility] Neutrophils/100 WBC (Bld) 73.0 % [facility] NT Pro BNPon 04-20-2022 Natriuretic peptide.B prohormone N-Terminal [Mass/Vol] 106 pg/mL 0 - 300 pg/mL [facility] Natriuretic peptide.B prohor randi N-Terminal [Mass/Vol]on 04-20-2022 Interpretation and review of laboratory results Normal [facility] Pride Study Cut-offs Rule In: < /= 50 Years >450 pg/mL 51 Years - 75 Years >900 pg/mL 76 Years - 99 Years >1800 pg/mL Rule Out: All patients <300 pg/mL [facility] No Panel Informationon 04-20 [facility] Interpretation and review of laboratory results Abnormal [facility] Interpretation and review of laboratory results Abnormal [facility] Obtain VBG and performon [facility] POC Venous Blood Gas Panel-P ulmon 04-20-2022 Base excess Calc (BldV) [Moles/Vol] 1.3 mmol/L -2 - 2 [facility] CO2 (BldV) [Partial pressure] 49.3 mm[Hg] [facility] HCO3 (Bld) [Moles/Vol] 27.4 mmol/L 24 - 28 mmol/L [facility] Hematocrit (BldA) [Volume fraction] 30.0 % Low 41 - 53 % [facility] Hemoglobin (Bld) [Mass/Vol] 9.8 g/dL Low 13.5 - 17.5 g/dL [facility] Inhaled oxygen concentration 21 % [facility] Interpretation and review of laboratory results Abnormal [facility] Oxygen (BldV) [Partial pressure] 65 mm[Hg] High [facility] Oxygen saturation in Venous blood 91.9 % High 40 - 70 % [facility] pH (BldV) 7.35 [pH] 7.32 - 7.42 [facility] Specimen source Nom (Unsp spec) Not specified [facility] Base excess Calc (BldV) [Moles/Vol] 1.4 mmol/L -2 - 2 [facility] CO2 (BldV) [Partial pressure] 49.4 mm[Hg] [facility] HCO3 (Bld) [Moles/Vol] 27.5 mmol/L 24 - 28 mmol/L [facility] Hematocrit (BldA) [Volume fraction] 30.8 % Low 41 - 53 % [facility] Hemoglobin (Bld) [Mass/Vol] 10.1 g/dL Low 13.5 - 17.5 g/dL [facility] Inhaled oxygen concentration 21 % [facility] Interpretation and review of laboratory results Abnormal [facility] Oxygen (BldV) [Partial pressure] 63 mm[Hg] High [facility] Oxygen saturation in Venous blood 91.1 % High 40 - 70 % [facility] pH (BldV) 7.35 [pH] 7.32 - 7.42 [facility] Troponinon 04-20-2022 Delta Difference Troponin I 0 ng/L < -/+ 12 change [facility] Troponin I Delta Change No biomarker evidence of cardiac injury. [facility] Troponin I 3 ng/L NINF - 59 ng/L [facility] Delta Difference Troponin I ng/L < -/+ 12 change ng/L [facility] Troponin I Delta Change No biomarker evidence of cardiac injury. [facility] Troponin I ng/L NINF - 59 ng/L [facility] Troponin x 2 (Now and Repeat in 3 hours)on 04-20-2022 Delta Difference Troponin I ng/L < -/+ 12 change ng/L [facility] Troponin I Delta Change No biomarker evidence of cardiac injury. [facility] Troponin I ng/L NINF - 59 ng/L [facility] Troponin I 3 ng/L NINF - 59 ng/L [facility] Troponin I Interpretation Normal [facility] US Renal and Bladderon 04-20 Radiology Study observation (narrative) [facility] UrinalysisOrdered By: Kathleen Nick on 04-20-2022 Bacteria Auto Ql (U) None Seen None Se en /hpf [facility] Bilirubin Ql (U) Negative Negative [facility] Refract[facility] automated (U) Clear Clear [facility] Color (U) Yellow Colorless, Yellow [facility] Glucose Auto test strip (U) [Mass/Vol] Negative Negative mg/dL [facility] Hemoglobin Auto test strip Ql (U) Negative Negative [facility] Interpretation and review of laboratory results Normal [facility] Ketones (U) [Mass/Vol] Negative Negative mg/dL [facility] Leukocyte esterase Auto test strip Ql (U) Negative Negative [facility] Mucus Auto (Urine sed) [#/Area] Rare None Seen, Rare /lpf [facility] Nitrite Auto test strip Ql (U) Negative Negative [facility] pH (U) 5.5 [pH] 5 - 7 [facility] Protein (U) [Mass/Vol] Negative Negative mg/dL [facility] RBC Auto (Urine sed) [#/Area] [facility] Specific gravity (U) [Rel density] 1.010 1.005 - 1.025 [facility] Urobilinogen (U) [Mass/Vol] mg/dL NINF - 2.0 mg/dL [facility] WBC Auto (Urine sed) [#/Area] [facility] Microscopic examinat ion is performed on all urinalysis samples and only positive findings are reported. The test for blood on the chemical analytic portion of urinalysis may also be positive due to hemoglobinuria and myoglobinuria and if red blood cells are present they are quantified by microscopic examination. [facility] Urine Drug Screenon 04-20-20 22 Amphetamines Ql (U) Not detected None Detected [facility] Comment on above: Urine Amphetamine Cu toff: < 1000 ng/mL = None Detected Barbiturates Screen Ql (U) Not detected None Detected [facility] Comment on above: Urine Barbiturates C utoff: < 200 ng/mL = None Detected Benzodiazepines Ql (U) Positive Abnormal None Detected [facility] Comment on above: Urine Benzodiazepine Cutoff: < 200 ng/mL = None Detected Buprenorphine Ql (U) Positive Abnormal None Detected [facility] Comment on above: Urine Buprenorphine Cutoff: < 5 ng/mL = None Detected Cannabinoids Screen Ql (U) Not detected None Detected [facility] Comment on above: Urine Cannabinoids C utoff: < 50 ng/mL = None Detected Cocaine Ql (U) Positive Abnormal None Detected [facility] Comment on above: Urine Cocaine Cutoff : < 300 ng/mL = None Detected fentaNYL+Norfentanyl Screen Ql (U) Not detected None Detected [facility] Comment on above: Urine Fentanyl Cutof f: < 1 ng/mL = None Detected Interpretation and review of laboratory results Abnormal [facility] Methadone Screen Ql (U) Not detected None Detected [facility] Comment on above: Urine Methadone Cuto ff: < 300 ng/mL = None Detected Opiates Screen Ql (U) Not detected None Detected [facility] Comment on above: Urine Opiates Cutoff : < 300 ng/mL = None Detected oxyCODONE Ql (U) Not detected None Detected [facility] Comment on above: Urine Oxycodone Cuto ff: < 100 ng/mL = None Detected Specimen will be kep t for 1 week, if the sample is adequate. Confirmation testing can be initiated by calling the lab within 1 week. Screen results should be used for treatment purposes only. [facility] XR Chest 1 Viewon 04-20-2022 Radiology Study observation (narrative) [facility] XR Knee Left 2 Views (Standa rd)on 04-20-2022 Radiology Study observation (narrative) [facility] XR Knee Right 2 Views (Stand no)on 04-20-2022 Radiology Study observation (narrative) [facility] XR Pelvis 1 View (Standard)o n 04-20-2022 Radiology Study observation (narrative) [facility] ALCOHOL (ETHANOL),BLOODon Ethanol [Mass/Vol] mg/dL [facility] Comment on above: INTOXICATION >80 MG/DL FATAL >400 MG/DL C REACTIVE PROTEINon 022 CRP [Mass/Vol] 39.4 mg/L High 0 - 10.0 MG/L [facility] Interpretation and review of laboratory results Abnormal [facility] CBC, EDIF, PLATELETon 2021 ABSOLUTE BASOPHIL COUNT 0.0 10*3/uL 0.0 - 0.2 10*3/uL [facility] Basophils/100 WBC (Bld) 0.8 % 0.0 - 2.0 % [facility] Differential cell count method Nom (Bld) AUTO DIFF % [facility] Eosinophils (Bld) [#/Vol] 0.00 10*3/uL 0.0 - 0.7 10*3/uL [facility] Eosinophils/100 WBC (Bld) 1.3 % 0.0 - 11.0 % [facility] Erythrocyte distribution width (RBC) [Ratio] 15.9 % High 11.5 - 14.5 % [facility] Hematocrit (Bld) [Volume fraction] 35.0 % Low 42.0 - 52.0 % [facility] Hemoglobin (Bld) [Mass/Vol] 11.0 g/dL Low [facility] Interpretation and review of laboratory results Abnormal [facility] Lymphocytes (Bld) [#/Vol] 0.80 10*3/uL Low 1.2 - 3.4 10*3/uL [facility] Lymphocytes/100 WBC (Bld) 20.4 % 20.0 - 55.0 % [facility] MCH (RBC) [Entitic mass] 21.8 pg Low 26.0 - 35.0 PG [facility] MCHC (RBC) [Mass/Vol] 31.3 g/dL [facility] MCV (RBC) [Entitic vol] 69.6 fL Low [facility] Monocytes (Bld) [#/Vol] 0.5 10*3/uL 0.0 - 0.7 10*3/uL [facility] Monocytes/100 WBC (Bld) 13.0 % High 0.0 - 10.0 % [facility] Neutrophils (Bld) [#/Vol] 2.4 10*3/uL 1.4 - 6.5 10*3/uL [facility] Neutrophils/100 WBC (Bld) 64.5 % 37.0 - 75.0 % [facility] Platelet mean volume (Bld) [Entitic vol] 8.2 fL [facility] Platelets (Bld) [#/Vol] 122 10*3/uL Low 130.0 - 400.0 10*3/uL [facility] RBC (Bld) [#/Vol] 5.03 10*6/uL 4.0 - 6.1 10*6/uL [facility] WBC (Bld) [#/Vol] 3.8 10*3/uL 3.6 - 11.0 10*3/uL [facility] COMPREHENSIVE METABOLIC PANE Ras 03-07-2022 Albumin [Mass/Vol] 3.0 G/dl Low 3.5 - 5.0 G/dl [facility] Albumin/Globulin [Mass ratio] 0.7 {ratio} Low [facility] ALP [Catalytic activity/Vol] 45 U/L [facility] ALT [Catalytic activity/Vol] 20 U/L [facility] AST [Catalytic activity/Vol] 34 U/L [facility] Bilirubin [Mass/Vol] 1.4 mg/dL High [facility] Calcium [Mass/Vol] 8.2 mg/dL Low [facility] Chloride [Moles/Vol] 87 mmol/L Low [facility] CO2 [Moles/Vol] 38 mmol/L High [facility] Creatinine [Mass/Vol] 0.82 mg/dL [facility] GFR COMMENT Average GFR for 50-5 9 years old = 93. [facility] Comment on above: Chronic Kidney disea se, GFR = <60. Kidney failure, GFR = <15. The GFR estimate is not adjusted for extreme body surface area or acute process, nor has it been validated for women or ethnic groups other than and . GFR/1.73 sq M.predicted among blacks MDRD (S/P/Bld) [Vol rate/Area] 125 mL/min/{1.73_m2} ml/min/1.73s q.m [facility] GFR/1.73 sq M.predicted among non-blacks MDRD (S/P/Bld) [Vol rate/Area] 104 mL/min/{1.73_m2} ml/min/1.73s q.m [facility] Glucose post fast [Mass/Vol] 148 mg/dL High [facility] Comment on above: NORMAL <100 mg/dL PREDIABETES 101-126 mg/dL DIABETES 126 mg/dL or higher Interpretation and review of laboratory results Abnormal [facility] Potassium [Moles/Vol] 3.4 mmol/L Low [facility] Protein [Mass/Vol] 7.6 g/dL [facility] Sodium [Moles/Vol] 132 mmol/L Low [facility] Urea nitrogen [Mass/Vol] 12 mg/dL [facility] LACTATE, BLOODon 03-07-2022 Lactate [Moles/Vol] 1.5 mmol/L 0.7 - 2. 0 mmol/L [facility] No Panel Informationon 03-07 [facility] PROTIME-INRon 03-07-2022 INR Coag (PPP) [Relative time] 1.22 {INR} High [facility] Comment on above: 2.0-3.0 THERAPEUTIC RANGE 2.5-3.5 MECHANICAL VALVE RANGE Interpretation and review of laboratory results Abnormal [employer] PT Coag (PPP) [Time] 15.[address] [facility] [employer] [facility] PTTon 03-07-2022 aPTT Coag (Bld) [Time] 32.5 s [employer] Comment on above: CARDIAC AND PE/DVT THERAPUTIC RANGE 69-97 SEC VASCULAR/THREATENED LIMB THERAPUTIC RANGE 80-112 SEC [facility] SEDIMENTATION RATE, AUTOMATE Don 03-07-2022 ESR (Bld) [Velocity] 118 mm/h [facility] apartum Interpretation and review of laboratory results Abnormal [employer] [facility] XR Tibia and Fibula - right [...] modality for the evaluation of acute osteomyelitis. [facility] Radiology Study observation (narrative) [facility] XR Tibia and Fibula - right ViewsOrdered By: Connie Madden on 03-07-2022 [facility] Work Phone: ISSAC MULTIPLEX SCRN WITH REFL EXon 11-15-2021 Nuclear Ab Ql (S) Negative [facility] Comment on above: Reference range: Neg ative PERFORMED AT [facility] B12 & FOLATEon 11-15-2021 Cobalamin (Vitamin B12) [Mass/Vol] 303 pg/mL 180 - 914 PG/ML [facility] Folate [Mass/Vol] 14.3 ng/mL >5.9 NG/ML [facility] C REACTIVE PROTEINon 022 CRP [Mass/Vol] 18.0 mg/L High 0 - 10.0 MG/L [facility] CBC, EDIF, PLATELETon 2021 ABSOLUTE BASOPHIL COUNT 0.0 10*3/uL 0.0 - 0.2 10*3/uL [facility] Basophils/100 WBC (Bld) 0.2 % 0.0 - 2.0 % [facility] Differential cell count method Nom (Bld) AUTO DIFF % [facility] Eosinophils (Bld) [#/Vol] 0.10 10*3/uL 0.0 - 0.7 10*3/uL [facility] Eosinophils/100 WBC (Bld) 2.9 % 0.0 - 11.0 % [facility] Erythrocyte distribution width (RBC) [Ratio] 15.8 % High 11.5 - 14.5 % [facility] Hematocrit (Bld) [Volume fraction] 30.4 % Low 42.0 - 52.0 % [facility] Hemoglobin (Bld) [Mass/Vol] 9.7 g/dL Low [facility] Interpretation and review of laboratory results Abnormal [facility] Lymphocytes (Bld) [#/Vol] 0.60 10*3/uL Low 1.2 - 3.4 10*3/uL [facility] Lymphocytes/100 WBC (Bld) 27.4 % 20.0 - 55.0 % [facility] MCH (RBC) [Entitic mass] 22.0 pg Low 26.0 - 35.0 PG [facility] MCHC (RBC) [Mass/Vol] 32.0 g/dL [facility] MCV (RBC) [Entitic vol] 68.7 fL Low [facility] Monocytes (Bld) [#/Vol] 0.2 10*3/uL 0.0 - 0.7 10*3/uL [facility] Monocytes/100 WBC (Bld) 9.9 % 0.0 - 10.0 % [facility] Neutrophils (Bld) [#/Vol] 1.4 10*3/uL 1.4 - 6.5 10*3/uL [facility] Neutrophils/100 WBC (Bld) 59.6 % 37.0 - 75.0 % [facility] Platelet mean volume (Bld) [Entitic vol] 8.5 fL [facility] Platelets (Bld) [#/Vol] 109 10*3/uL Low 130.0 - 400.0 10*3/uL [facility] RBC (Bld) [#/Vol] 4.42 10*6/uL 4.0 - 6.1 10*6/uL [facility] WBC (Bld) [#/Vol] 2.3 10*3/uL Low 3.6 - 11.0 10*3/uL [facility] DIRECT ANTIGLOBULIN TEST (DA T)on 11-15-2021 Direct antiglobulin test.poly specific reagent Ql (RBC) Negative [facility] FERRITINon 11-15-2021 Ferritin [Mass/Vol] 230 ng/mL [facility] HEPATIC FUNCTION PANELon Albumin [Mass/Vol] 4.3 g/dL [facility] ALP [Catalytic activity/Vol] 31 U/L Low [facility] ALT [Catalytic activity/Vol] 31 U/L [facility] AST [Catalytic activity/Vol] 40 U/L [facility] Bilirubin [Mass/Vol] 1.4 mg/dL High [facility] Bilirubin.direct [Mass/Vol] 0.3 mg/dL High [facility] Protein [Mass/Vol] 7.2 g/dL [facility] IRON/IRON BINDING/TRANSFERRI Non 11-15-2021 Iron [Mass/Vol] 89 ug/dL [facility] Iron binding capacity [Mass/Vol] 190 Low [facility] Iron saturation [Mass fraction] 47 % [facility] MAGNESIUMon 11-15-2021 Magnesium [Mass/Vol] 1.6 mg/dL [facility] No Panel Informationon 11-15 [facility] Interpretation and review of laboratory results Abnormal [facility] PROTIME-INRon 11-15-2021 INR Coag (PPP) [Relative time] 1.21 {INR} High [facility] Comment on above: 2.0-3.0 THERAPEUTIC RANGE 2.5-3.5 MECHANICAL VALVE RANGE Interpretation and review of laboratory results Abnormal [facility] PT Coag (PPP) [Time] 15.4 s [facility] RENAL FUNCTION PANELon 11-15 Albumin [Mass/Vol] 4.3 G/dl 3.5 - 5.0 G/dl [facility] Calcium [Mass/Vol] 9.7 mg/dL [facility] Chloride [Moles/Vol] 95 mmol/L Low [facility] CO2 [Moles/Vol] 29 mmol/L [facility] Creatinine [Mass/Vol] 0.68 mg/dL [facility] GFR COMMENT Average GFR for 50-5 9 years old = 93. [facility] Comment on above: Chronic Kidney disea se, GFR = <60. Kidney failure, GFR = <15. The GFR estimate is not adjusted for extreme body surface area or acute process, nor has it been validated for women or ethnic groups other than and . GFR/1.73 sq M.predicted among blacks MDRD (S/P/Bld) [Vol rate/Area] 156 mL/min/{1.73_m2} ml/min/1.73s q.m [facility] GFR/1.73 sq M.predicted among non-blacks MDRD (S/P/Bld) [Vol rate/Area] 129 mL/min/{1.73_m2} ml/min/1.73s q.m [facility] Glucose post fast [Mass/Vol] 94 mg/dL [facility] Comment on above: NORMAL <100 mg/dL PREDIABETES 101-126 mg/dL DIABETES 126 mg/dL or higher Interpretation and review of laboratory results Abnormal [facility] Phosphate [Mass/Vol] 3.9 mg/dL [facility] Potassium [Moles/Vol] 3.6 mmol/L [facility] Sodium [Moles/Vol] 137 mmol/L [facility] Urea nitrogen [Mass/Vol] 23 mg/dL High [facility] SEDIMENTATION RATE, AUTOMATE Don 11-15-2021 ESR (Bld) [Velocity] 25 mm/h High [facility] Interpretation and review of laboratory results Abnormal [facility] ISSAC MULTIPLEX SCRN WITH REFL EXon 11-14-2021 Nuclear Ab Ql (S) Negative [facility] Comment on above: Reference range: Neg ative PERFORMED AT [facility] C REACTIVE PROTEINon 022 CRP [Mass/Vol] 19.7 mg/L High 0 - 10.0 MG/L [facility] CBC, EDIF, PLATELETon 2021 ABSOLUTE BASOPHIL COUNT 0.0 10*3/uL 0.0 - 0.2 10*3/uL [facility] DIFFERENTIAL TYPE MANUAL DIFF % [facility] Comment on above: CORRECTED ON 11/14 A T 0734: PREVIOUSLY REPORTED AUTO DIFF Eosinophils (Bld) [#/Vol] 0.10 10*3/uL 0.0 - 0.7 10*3/uL [facility] Erythrocyte distribution width (RBC) [Ratio] 16.4 % High 11.5 - 14.5 % [facility] Hematocrit (Bld) [Volume fraction] 29.0 % Low 42.0 - 52.0 % [facility] Hemoglobin (Bld) [Mass/Vol] 9.3 g/dL Low [facility] Interpretation and review of laboratory results Abnormal [facility] Lymphocytes (Bld) [#/Vol] 0.60 10*3/uL Low 1.2 - 3.4 10*3/uL [facility] Lymphocytes/100 WBC (Bld) 44 % 20.0 - 55.0 % [facility] Comment on above: CORRECTED ON 11/14 A T 0734: PREVIOUSLY REPORTED 28.1 MCH (RBC) [Entitic mass] 22.2 pg Low 26.0 - 35.0 PG [facility] MCHC (RBC) [Mass/Vol] 32.2 g/dL [facility] MCV (RBC) [Entitic vol] 69.0 fL Low [facility] Monocytes (Bld) [#/Vol] 0.2 10*3/uL 0.0 - 0.7 10*3/uL [facility] Monocytes/100 WBC (Bld) 8 % 0.0 - 10.0 % [facility] Comment on above: CORRECTED ON 11/14 A T 0734: PREVIOUSLY REPORTED 7.9 Morphology Julián (Bld) [Interp] 2+ [facility] Comment on above: MICROCYTOSIS 2+ ANISOCYTE 1+ TARGET CELLS Neutrophils (Bld) [#/Vol] 1.4 10*3/uL 1.4 - 6.5 10*3/uL [facility] Neutrophils/100 WBC (Bld) 48 % 37.0 - 75.0 % [facility] Comment on above: CORRECTED ON 11/14 A T 0734: PREVIOUSLY REPORTED 61.2 Platelet mean volume (Bld) [Entitic vol] 9.0 fL [facility] Platelet morphology finding Nom (Bld) DECREASED [facility] Platelets (Bld) [#/Vol] 123 10*3/uL Low 130.0 - 400.0 10*3/uL [facility] RBC (Bld) [#/Vol] 4.20 10*6/uL 4.0 - 6.1 10*6/uL [facility] WBC (Bld) [#/Vol] 2.3 10*3/uL Low 3.6 - 11.0 10*3/uL [facility] CT Pulmonary arteries for pu lmonary emboluson 11-14-2021 IMPRESSION: 1. Suboptimal opacification of the pulmonary arterial system. No filling defect to the lobar level. No convincing segmental arterial filling defect although heterogeneous enhancement at this level is noted. 2. No focal airspace disease. 3. Cardiomegaly with left atrial enlargement. LAD calcifications. 4. Splenomegaly. RADIOLOGY EXAMINATION: CT PE Parag SHARPE, 11/14/2021 9:07 AM MDT HISTORY: 56-year-old male [...] left atrial enlargement. LAD calcifications. 4. Splenomegaly. [facility] Radiology Study observation (narrative) [facility] CT Pulmonary arteries for pu lmonary embolusOrdered By: Leandro Rodriguez on 11-14-2021 [facility] Work Phone: FIBRINOGEN, CLOTTABLEon 10-21 Fibrinogen Coag (PPP) [Mass/Vol] 254.0 mg/dL 171 - 562 mg/dL [facility] HEPATIC FUNCTION PANELon Albumin [Mass/Vol] 4.1 g/dL [facility] ALP [Catalytic activity/Vol] 26 U/L Low [facility] ALT [Catalytic activity/Vol] 26 U/L [facility] AST [Catalytic activity/Vol] 30 U/L [facility] Bilirubin [Mass/Vol] 1.8 mg/dL High [facility] Bilirubin.direct [Mass/Vol] 0.3 mg/dL High [facility] Protein [Mass/Vol] 6.9 g/dL [facility] HEPATITIS A, B, Con 11-15-19 22 HBV surface Ag IA Ql Negative NEGATIVE [facility] Hep A AB (IGG + IGM) Positive Abnormal NEGATIVE [facility] Comment on above: Specimen is positive for HAV, sent to reference lab for HAVAb, IgM. Positive indicates a reactive sample and the presence of HAV Ab, individual has been previously infected or is presumed to be immune to HAV infection. HEP B CORE AB,TOTAL(IGG+IGM) Reactive Abnormal NEGATIVE [facility] Comment on above: Specimen is presumed reactive for HBc Ab Hep B Surf AB Negative Abnormal POSITIVE [facility] Comment on above: Clinical Interpretation of Immune Status Negative: patient is considered to be not immune to infection with HBV Intermediate: unable to determine if anti-HBs is present at levels consistent with immunity Positive: anti-HBs detected, patient is considered to be immune to infection with HBV HEP C AB Reactive Abnormal NEGATIVE [facility] Comment on above: HCV Ab IgG detected, patient is presumed to be infected, state or associated disease not determined Interpretation and review of laboratory results Abnormal [facility] MAGNESIUMon 11-14-2021 Magnesium [Mass/Vol] 1.9 mg/dL [facility] No Panel Informationon 11-14 Interpretation and review of laboratory results Abnormal [facility] PROCALCITONINon 11-14-2021 PROCALCITONIN 0.06 ng/mL 0.00 - 0.49 ng/mL [facility] Comment on above: PCT Interpretation Concentrations under 0.5 ng/mL do not exclude local infections of systemic infections in their initial stages (e.g. under six hours from onset of illness). PCT concentrations between 0.5 and 2.0 ng/mL should be interpreted with consideration of patient's history. In this range, it is recommended to retest PCT within 6 to 24 hours. Testing performed at [place], [place] [address] [facility] PROTIME-INRon 11-14-2021 INR Coag (PPP) [Relative time] 1.23 {INR} High [facility] Comment on above: 2.0-3.0 THERAPEUTIC RANGE 2.5-3.5 MECHANICAL VALVE RANGE Interpretation and review of laboratory results Abnormal [facility] PT Coag (PPP) [Time] 15.7 s [facility] RENAL FUNCTION PANELon 11-14 Albumin [Mass/Vol] 4.1 G/dl 3.5 - 5.0 G/dl [facility] Calcium [Mass/Vol] 8.9 mg/dL [facility] Chloride [Moles/Vol] 103 mmol/L [facility] CO2 [Moles/Vol] 25 mmol/L [facility] Creatinine [Mass/Vol] 0.58 mg/dL Low [facility] GFR COMMENT Average GFR for 50-5 9 years old = 93. [facility] Comment on above: Chronic Kidney disea se, GFR = <60. Kidney failure, GFR = <15. The GFR estimate is not adjusted for extreme body surface area or acute process, nor has it been validated for women or ethnic groups other than and . GFR/1.73 sq M.predicted among blacks MDRD (S/P/Bld) [Vol rate/Area] 187 mL/min/{1.73_m2} ml/min/1.73s q.m [facility] GFR/1.73 sq M.predicted among non-blacks MDRD (S/P/Bld) [Vol rate/Area] 155 mL/min/{1.73_m2} ml/min/1.73s q.m [facility] Glucose post fast [Mass/Vol] 94 mg/dL [facility] Comment on above: NORMAL <100 mg/dL PREDIABETES 101-126 mg/dL DIABETES 126 mg/dL or higher Interpretation and review of laboratory results Abnormal [facility] Phosphate [Mass/Vol] 2.9 mg/dL [facility] Potassium [Moles/Vol] 4.2 mmol/L [facility] Sodium [Moles/Vol] 136 mmol/L [facility] Urea nitrogen [Mass/Vol] 25 mg/dL High [facility] SEDIMENTATION RATE, AUTOMATE Don 11-14-2021 ESR (Bld) [Velocity] 15 mm/h [facility] URIC ACIDon 11-14-2021 Urate [Mass/Vol] 5.4 mg/dL [facility] XR Foot - right 3 Viewson IMPRESSION: [...] have mildly progressed as compared to 03/02/2018. [facility] Radiology Study observation (narrative) [facility] XR Foot - right 3 ViewsOrder ed By: Sofía Corral on 11-14-2021 [facility] Work Phone: B-TYPE NATRIURETIC PEPTIDE ( BRAIN)on 11-13-2021 Natriuretic peptide B (Bld) [Mass/Vol] 72 pg/mL 0 - 100 pg/mL [facility] CBC, EDIF, PLATELETon 2021 ABSOLUTE BASOPHIL COUNT 0.0 10*3/uL 0.0 - 0.2 10*3/uL [facility] Basophils/100 WBC (Bld) 0 % 0.0 - 2.0 % [facility] Comment on above: CORRECTED ON 11/13 A T 1129: PREVIOUSLY REPORTED 0.3 Differential cell count method Nom (Bld) AUTO DIFF % [facility] Eosinophils (Bld) [#/Vol] 0.10 10*3/uL 0.0 - 0.7 10*3/uL [facility] Eosinophils/100 WBC (Bld) 2 % 0.0 - 11.0 % [facility] Comment on above: CORRECTED ON 11/13 A T 1129: PREVIOUSLY REPORTED 1.9 Erythrocyte distribution width (RBC) [Ratio] 16.1 % High 11.5 - 14.5 % [facility] Hematocrit (Bld) [Volume fraction] 31.2 % Low 42.0 - 52.0 % [facility] Hemoglobin (Bld) [Mass/Vol] 9.9 g/dL Low [facility] Interpretation and review of laboratory results Abnormal [facility] Lymphocytes (Bld) [#/Vol] 0.60 10*3/uL Low 1.2 - 3.4 10*3/uL [facility] Lymphocytes/100 WBC (Bld) 18 % Low 20.0 - 55.0 % [facility] Comment on above: CORRECTED ON 11/13 A T 1129: PREVIOUSLY REPORTED 18.4 MCH (RBC) [Entitic mass] 22.0 pg Low 26.0 - 35.0 PG [facility] MCHC (RBC) [Mass/Vol] 31.8 g/dL [facility] MCV (RBC) [Entitic vol] 69.4 fL Low [facility] Monocytes (Bld) [#/Vol] 0.3 10*3/uL 0.0 - 0.7 10*3/uL [facility] Monocytes/100 WBC (Bld) 11 % High 0.0 - 10.0 % [facility] Comment on above: CORRECTED ON 11/13 A T 1129: PREVIOUSLY REPORTED 10.6 Morphology Julián (Bld) [Interp] 1+ [facility] Comment on above: ANISOCYTE 1+ POIKILOCYTE 1+ TARGET CELLS 1+ MICROCYTOSIS Neutrophils (Bld) [#/Vol] 2.1 10*3/uL 1.4 - 6.5 10*3/uL [facility] Neutrophils/100 WBC (Bld) 69 % 37.0 - 75.0 % [facility] Comment on above: CORRECTED ON 11/13 A T 1129: PREVIOUSLY REPORTED 68.8 Platelet mean volume (Bld) [Entitic vol] 8.2 fL [facility] Platelet morphology finding Nom (Bld) DECREASED [facility] Platelets (Bld) [#/Vol] 101 10*3/uL Low 130.0 - 400.0 10*3/uL [facility] RBC (Bld) [#/Vol] 4.49 10*6/uL 4.0 - 6.1 10*6/uL [facility] WBC (Bld) [#/Vol] 3.0 10*3/uL Low 3.6 - 11.0 10*3/uL [facility] ABSOLUTE BASOPHIL COUNT 0.0 10*3/uL 0.0 - 0.2 10*3/uL [facility] Basophils/100 WBC (Bld) 0.3 % 0.0 - 2.0 % [facility] Differential cell count method Nom (Bld) AUTO DIFF % [facility] Eosinophils (Bld) [#/Vol] 0.10 10*3/uL 0.0 - 0.7 10*3/uL [facility] Eosinophils/100 WBC (Bld) 2.8 % 0.0 - 11.0 % [facility] Erythrocyte distribution width (RBC) [Ratio] 16.0 % High 11.5 - 14.5 % [facility] Hematocrit (Bld) [Volume fraction] 34.5 % Low 42.0 - 52.0 % [facility] Hemoglobin (Bld) [Mass/Vol] 10.9 g/dL Low [facility] Interpretation and review of laboratory results Abnormal [facility] Lymphocytes (Bld) [#/Vol] 0.80 10*3/uL Low 1.2 - 3.4 10*3/uL [facility] Lymphocytes/100 WBC (Bld) 25.2 % 20.0 - 55.0 % [facility] MCH (RBC) [Entitic mass] 22.1 pg Low 26.0 - 35.0 PG [facility] MCHC (RBC) [Mass/Vol] 31.6 g/dL [facility] MCV (RBC) [Entitic vol] 70.0 fL Low [facility] Monocytes (Bld) [#/Vol] 0.4 10*3/uL 0.0 - 0.7 10*3/uL [facility] Monocytes/100 WBC (Bld) 11.6 % High 0.0 - 10.0 % [facility] Neutrophils (Bld) [#/Vol] 2.0 10*3/uL 1.4 - 6.5 10*3/uL [facility] Neutrophils/100 WBC (Bld) 60.1 % 37.0 - 75.0 % [facility] Platelet mean volume (Bld) [Entitic vol] 8.4 fL [facility] Platelets (Bld) [#/Vol] 118 10*3/uL Low 130.0 - 400.0 10*3/uL [facility] RBC (Bld) [#/Vol] 4.93 10*6/uL 4.0 - 6.1 10*6/uL [facility] WBC (Bld) [#/Vol] 3.3 10*3/uL Low 3.6 - 11.0 10*3/uL [facility] CKon 11-13-2021 CK [Catalytic activity/Vol] 69 U/L [facility] COMPREHENSIVE METABOLIC PANE Ras 11-13-2021 Albumin [Mass/Vol] 3.5 G/dl 3.5 - 5.0 G/dl [facility] Albumin/Globulin [Mass ratio] 1.1 {ratio} Low [facility] ALP [Catalytic activity/Vol] 46 U/L [facility] ALT [Catalytic activity/Vol] 29 U/L [facility] AST [Catalytic activity/Vol] 29 U/L [facility] Bilirubin [Mass/Vol] 1.0 mg/dL [facility] Calcium [Mass/Vol] 8.4 mg/dL [facility] Chloride [Moles/Vol] 107 mmol/L [facility] CO2 [Moles/Vol] 26 mmol/L [facility] Creatinine [Mass/Vol] 1.12 mg/dL [facility] GFR COMMENT Average GFR for 50-5 9 years old = 93. [facility] Comment on above: Chronic Kidney disea se, GFR = <60. Kidney failure, GFR = <15. The GFR estimate is not adjusted for extreme body surface area or acute process, nor has it been validated for women or ethnic groups other than and . GFR/1.73 sq M.predicted among blacks MDRD (S/P/Bld) [Vol rate/Area] 88 mL/min/{1.73_m2} ml/min/1.73s q.m [facility] GFR/1.73 sq M.predicted among non-blacks MDRD (S/P/Bld) [Vol rate/Area] 72 mL/min/{1.73_m2} ml/min/1.73s q.m [facility] Glucose post fast [Mass/Vol] 143 mg/dL High [facility] Comment on above: NORMAL <100 mg/dL PREDIABETES 101-126 mg/dL DIABETES 126 mg/dL or higher Interpretation and review of laboratory results Abnormal [facility] Potassium [Moles/Vol] 4.2 mmol/L [facility] Protein [Mass/Vol] 6.7 g/dL [facility] Sodium [Moles/Vol] 140 mmol/L [facility] Urea nitrogen [Mass/Vol] 30 mg/dL High [facility] D-DIMER,QUANTITATIVEon 11-13 Fibrin D-dimer FEU (PPP) [Mass/Vol] 9.66 Critically high <0.50 mg/L FEU [facility] Comment on above: If result is greater than the cutoff value of 0.50 mg/L then the potential for PE or DVT exists. Other conditions exist which may cause a falsely elevated level. Please correlate clinically, including radiological findings and other clinical parameters. Result called to read back by: Sandra CANSECO 11/13/2021 @ 11:02 by [facility] Interpretation and review of laboratory results Abnormal [facility] MAGNESIUMon 11-13-2021 Magnesium [Mass/Vol] 2.1 mg/dL [facility] RHEUMATOID FACTORon 11-14-19 Interpretation and review of laboratory results Abnormal [facility] RHEUMATOID FACTOR 441.1 High <12 Iu/mL [facility] SCREEN: MRSA ONLY, NARES (IS OLATION SCREEN)on 11-13-2021 Interpretation and review of laboratory results Abnormal [facility] MRSA isol Org specific cx Ql (Nose) Not detected NOT DETECTED [facility] STAPHYOCOCCUS AUREUS BY PCR Detected Abnormal NOT DETECTED [facility] Comment on above: Testing performed at [place], [place] [id number] [place] [address] US.doppler Extremity vessels - bilateralon 11-13-2021 IMPRESSION: [...] edema. IMPRESSION IMPRESSION: No visualized venous thrombus [facility] Radiology Study observation (narrative) [facility] ALCOHOL (ETHANOL),BLOODon Ethanol [Mass/Vol] mg/dL [facility] Comment on above: INTOXICATION >80 MG/DL FATAL >400 MG/DL CBC, EDIF, PLATELETon 2021 ABSOLUTE BASOPHIL COUNT 0.0 10*3/uL 0.0 - 0.2 10*3/uL [facility] Basophils/100 WBC (Bld) 0.5 % 0.0 - 2.0 % [facility] Differential cell count method Nom (Bld) AUTO DIFF % [facility] Eosinophils (Bld) [#/Vol] 0.10 10*3/uL 0.0 - 0.7 10*3/uL [facility] Eosinophils/100 WBC (Bld) 1.5 % 0.0 - 11.0 % [facility] Erythrocyte distribution width (RBC) [Ratio] 16.0 % High 11.5 - 14.5 % [facility] Hematocrit (Bld) [Volume fraction] 34.1 % Low 42.0 - 52.0 % [facility] Hemoglobin (Bld) [Mass/Vol] 11.0 g/dL Low [facility] Interpretation and review of laboratory results Abnormal [facility] Lymphocytes (Bld) [#/Vol] 1.10 10*3/uL Low 1.2 - 3.4 10*3/uL [facility] Lymphocytes/100 WBC (Bld) 16.4 % Low 20.0 - 55.0 % [facility] MCH (RBC) [Entitic mass] 22.2 pg Low 26.0 - 35.0 PG [facility] MCHC (RBC) [Mass/Vol] 32.3 g/dL [facility] MCV (RBC) [Entitic vol] 68.9 fL Low [facility] Monocytes (Bld) [#/Vol] 0.8 10*3/uL High 0.0 - 0.7 10*3/uL [facility] Monocytes/100 WBC (Bld) 13.1 % High 0.0 - 10.0 % [facility] Neutrophils (Bld) [#/Vol] 4.4 10*3/uL 1.4 - 6.5 10*3/uL [facility] Neutrophils/100 WBC (Bld) 68.5 % 37.0 - 75.0 % [facility] Platelet mean volume (Bld) [Entitic vol] 7.8 fL [facility] Platelets (Bld) [#/Vol] 146 10*3/uL 130.0 - 400.0 10*3/uL [facility] RBC (Bld) [#/Vol] 4.95 10*6/uL 4.0 - 6.1 10*6/uL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 (U) Positive Abnormal None Detected [facility] Comment on above: Urine Cannabinoids C utoff: < 50 ng/mL = None Detected Cocaine Ql (U) None Detected None Detected [facility] Comment on above: Urine Cocaine Cutoff : < 300 ng/mL = None Detected Interpretation and review of laboratory results Abnormal [facility] Methadone Screen Ql (U) None Detected None Detected [facility] Comment on above: Urine Methadone Cuto ff: < 300 ng/mL = None Detected Opiates Screen Ql (U) None Detected None Detected [facility] Comment on above: Urine Opiates Cutoff : < 300 ng/mL = None Detected Oxycodone Ql (U) None Detected None Detected [facility] Comment on above: Urine Oxycodone Cuto ff: < 100 ng/mL = None Detected Screen results shoul d be used for treatment purposes only. Specimen will be kept for 1 week, if the sample is adequate. Confirmation testing can be initiated by calling the lab within 1 week. [facility] ECG 12-LEADon 07-08-2020 Atrial Rate 163 BPM [facility] Q-T Interval 320 ms [facility] QRS Duration 88 ms [facility] QTC Calculation (Bezet) 505 ms [facility] R Bison 59 degrees [facility] T Bison -16 degrees [facility] Ventricular Rate 150 BPM [facility] Atrial fibrillation with rapid ventricular response Nonspecific ST abnormality Abnormal QRS-T angle, consider primary T wave abnormality Abnormal ECG ECG Cart Interpretation see physician note for interpretation. Confirmed by Whit Pearson ([id number]) on 07/08/2020 1:51:47 PM [facility] Atrial Rate 76 BPM [facility] P Bison 68 degrees [facility] P-R Interval 176 ms [facility] Q-T Interval 414 ms [facility] QRS Duration 86 ms [facility] QTC Calculation (Bezet) 465 ms [facility] R Bison 50 degrees [facility] T Bison 52 degrees [facility] Ventricular Rate [address] [facility] th Normal sinus rhythm Normal ECG Confirmed by Memo Bernstein MD ([id number]) on 07/08/2020 1:39:52 PM [facility] ECHOCARDIOGRAM 2D COMPLETEon 07-08-2020 Aortic valve area 3.88779 cm [facility] AV mean gradient 3.[address] [facility] th AV peak gradient 5.54129 mmHg [facility] EF 75.4831 % [facility] Interface, Rad In He artlab Xper Echopacs - 07/08/2020 9:28 AM EST Patient Info Name: CARMEN GILMAN Age: 54 years : 1965 Gender: Male Ht: 183 cm Wt: 136 kg BSA: 2.68 m2 HR: 71 bpm BP: 91 / 57 mmHg Heart Rhythm: Atrial Flutter, Atrial Fibrillation, Sinus Rhythm Technical Quality: Technically difficult, Fair Exam Date: 07/08/2020 7:02 AM Patient Status: Inpatient Dirt Bike Racer: Neptali Carcamo RCDS Exam Type: ECHOCARDIOGRAM COMPLETE W CONTRAST Study Info Indications I48.92 - Unspecified atrial flutter I48.91 - Unspecified atrial fibrillation Referring Physician: CHULA Howard; [id number] BMI: 40.55 kg/m2 Summary 1. Technically fair [...] mmHg MV VTI 21.72 cm MV Decel Blount 560.70 cm/s2 MV PHT 53 ms MV [...] ml/m2 16.00-34.00 RA Dimensions RA Systolic Major Bison Length (4C) 6.58 cm <=5.30 RA Area (4C) 21.26 cm2 <=18.00 RA Area (4C) Index 7.93 cm2/m2 RA ESV (4C MOD) 58.58 ml 18.00-32.00 RA ESV Index (4C MOD) 21.84 ml/m2 <=32.00 Report Signatures Finalized by Liz Raya MD on 07/08/2020 09:27 AM [facility] Patient Info Name: Micheal GILMAN Age: 54 years : 1965 Gender: Male Ht: 183 cm Wt: 136 kg BSA: 2.68 m2 HR: 71 bpm BP: 91 / 57 mmHg Heart Rhythm: Atrial Flutter, Atrial Fibrillation, Sinus Rhythm Technical Quality: Technically difficult, Fair Exam Date: 07/08/2020 7:02 AM Patient Status: Inpatient Dirt Bike Racer: Neptali Carcamo RCDS Exam Type: ECHOCARDIOGRAM COMPLETE W CONTRAST Study Info Indications I48.92 - Unspecified atrial flutter I48.91 - Unspecified atrial fibrillation Referring Physician: CHULA Howard; [id number] BMI: 40.55 kg/m2 Summary 1. Technically fair [...] mmHg MV VTI 21.72 cm MV Decel Blount 560.70 cm/s2 MV PHT 53 ms MV [...] ml/m2 16.00-34.00 RA Dimensions RA Systolic Major Bison Length (4C) 6.58 cm <=5.30 RA Area (4C) 21.26 cm2 <=18.00 RA Area (4C) Index 7.93 cm2/m2 RA ESV (4C MOD) 58.58 ml 18.00-32.00 RA ESV Index (4C MOD) 21.84 ml/m2 <=32.00 Report Signatures Finalized by Liz Raya MD on 07/08/2020 09:27 AM [facility] ECHOCARDIOGRAM COMPLETE W CO NTRASTon 07-08-2020 ECHOCARDIOGRAM COMPLETE W CONTRAST Patient Info Name: CARMEN GILMAN Age: 54 years : 1965 Gender: Male Ht: 183 cm Wt: 136 kg BSA: 2.68 m2 HR: 71 bpm BP: 91 / 57 mmHg Heart Rhythm: Atrial Flutter, Atrial Fibrillation, Sinus Rhythm Technical Quality: Technically difficult, Fair Exam Date: 07/08/2020 7:02 AM Patient Status: Inpatient Dirt Bike Racer: Neptali Carcamo RCDS Exam Type: ECHOCARDIOGRAM COMPLETE W CONTRAST Study Info Indications I48.92 - Unspecified atrial flutter I48.91 - Unspecified atrial fibrillation Referring Physician: CHULA Howard; [id number] BMI: 40.55 kg/m2 Summary 1. Technically fair [...] mmHg MV VTI 21.72 cm MV Decel Blount 560.70 cm/s2 MV PHT 53 ms MV [...] ml/m2 16.00-34.00 RA Dimensions RA Systolic Major Bison Length (4C) 6.58 cm <=5.30 RA Area (4C) 21.26 cm2 <=18.00 RA Area (4C) Index 7.93 cm2/m2 RA ESV (4C MOD) 58.58 ml 18.00-32.00 RA ESV Index (4C MOD) 21.84 ml/m2 <=32.00 Report Signatures Finalized by Liz Raya MD on 07/08/2020 09:27 AM [facility] Hemoglobin A1con 07-08-2020 Average glucose Estimated from glycated hemoglobin mass conc (Bld) 111 mg/dL 68 - 114 mg/dL [facility] HbA1c (Bld) [Mass fraction] 5.5 % 4 - 5.6 % [facility] Interpretation and review of laboratory results Normal [facility] Normal: 4.0% - 5.6% Increased risk for diabetes: 5.7% - 6.4% Diabetes: >= 6.5% Pediatrics: No established reference range Estimated average glucose: 68-114 mg/dL [facility] Hepatic Function Panelon Albumin [Mass/Vol] 3.0 g/dL Low 3.2 - 5.2 g/dL [facility] ALP [Catalytic activity/Vol] 85 U/L 40 - 150 U/L [facility] ALT [Catalytic activity/Vol] 50 U/L 14 - 65 U/L [facility] AST [Catalytic activity/Vol] 57 U/L High 0 - 45 U/L [facility] Bilirubin [Mass/Vol] 0.7 mg/dL 0 - 1.3 mg/dL [facility] Bilirubin.conjugated [Mass/Vol] 0.4 mg/dL 0 - 0.4 mg/dL [facility] Interpretation and review of laboratory results Abnormal [facility] Protein [Mass/Vol] 8.4 g/dL High 6 - 8 g/dL [facility] alth IRON STUDY WITH FERRITINon 09-07-2019 Ferritin [Mass/Vol] 360 ng/mL 30 - 400 ng/mL [facility] Interpretation and review of laboratory results Normal [facility] Iron [Mass/Vol] 110 ug/dL [facility] h Iron binding capacity [Mass/Vol] 235 [facility] Iron saturation [Mass fraction] 47 % 20 - 50 % [facility] Lactic Acid, Plasmaon 2019 Interpretation and review of laboratory results Abnormal [facility] Lactate [Moles/Vol] 2.4 mmol/L High 0.6 - 2 mmol/L [facility] Lipid Panelon 07-08-2020 Cholesterol [Mass/Vol] 88 mg/dL Low 100 - 199 mg/dL [facility] Comment on above: National Cholesterol Education Program Guidelines: Cholesterol Desirable: <200 mg/dL Borderline High: 200-239 mg/dL High: greater than or equal to 240 mg/dL Cholesterol in HDL [Mass/Vol] 35 mg/dL Low 40 - 59 [facility] Comment on above: National Cholesterol Education Program Guidelines: HDL Cholesterol Low: <40 mg/dL Near Optimal: 40-59 mg/dL High: greater than or equal to 60 mg/dL Cholesterol in LDL [Mass/Vol] 43 mg/dL 10 - 130 mg/dL [facility] Comment on above: National Cholesterol Education Program Guidelines: LDL Cholesterol Optimal: <100 mg/dL Near Optimal/above Optimal: 100-129 mg/dL Borderline High: 130-159 mg/dL High: 160-189 mg/dL Very High: greater than or equal to 190 mg/dL Cholesterol non HDL [Mass/Vol] 53 mg/dL [facility] Comment on above: National Cholesterol Education Program Guidelines: NON HDL Cholesterol Desirable: <130 mg/dL Borderline High: 130-159 mg/dL High: 160-189 mg/dL Very High: > or = 190 mg/dL Cholesterol.total/Ch olesterol in HDL [Mass ratio] 2.5 {ratio} ratio [facility] Comment on above: Males Cholesterol/HD L Ratio: Average risk: 5.0 1/2 average risk: 3.4 2 x average risk: 9.6 Interpretation and review of laboratory results Abnormal [facility] Triglyceride [Mass/Vol] 48 mg/dL 30 - 150 mg/dL [facility] Comment on above: National Cholesterol Education Program Guidelines: Triglyceride Normal: <150 mg/dL Borderline High: 150-199 mg/dL High: 200-499 mg/dL Very High: greater than or equal to 500 mg/dL Magnesium Levelon 07-08-2020 Interpretation and review of laboratory results Normal [facility] Magnesium [Mass/Vol] 2.0 mg/dL 1.6 - 2 .4 mg/dL [facility] NT Pro BNPon 07-08-2020 Interpretation and review of laboratory results Abnormal [facility] Natriuretic peptide.B prohormone N-Terminal [Mass/Vol] 1022 pg/mL High 0 - 300 pg/mL [facility] Pride Study Cut-offs Rule In: < /= 50 Years >450 pg/mL 51 Years - 75 Years >900 pg/mL 76 Years - 99 Years >1800 pg/mL Rule Out: All patients <300 pg/mL [facility] Otheron 07-08-2020 No established refer ence range. [facility] Interpretation and review of laboratory results Normal [facility] POC ARTERIAL BLOOD GAS PANEL -[facility] 07-08-2020 Alveolar-arterial oxygen Partial pressure difference 121.7 mm Hg [facility] Base excess Calc (Bld) [Moles/Vol] 1.8 mmol/L [facility] Breath rate setting Ventilator synchronized intermittent mandatory 0 [facility] CO2 (Bld) [Partial pressure] 54.8 mm[Hg] High [facility] HCO3 (Bld) [Moles/Vol] 28.6 mmol/L High 22 - 26 mmol/L [facility] Hematocrit (BldA) [Volume fraction] 32.0 % Low 41 - 53 % [facility] Hemoglobin (Bld) [Mass/Vol] 10.4 g/dL Low 13.5 - 18 g/dL [facility] Inhaled oxygen concentration 40 % [facility] Interpretation and review of laboratory results Abnormal [facility] Oxygen (Bld) [Partial pressure] 88 mm[Hg] [facility] PEEP Respiratory system 5 [facility] pH (Bld) 7.33 [pH] Low [facility] SaO2% (BldA) [Mass fraction] 96.6 % 92 - 99 % [facility] Specimen source Nom (Unsp spec) Radial, right [facility] Tidal volume setting Ventilator 600 [facility] POC Glucoseon 07-08-2020 Glucose [Mass/Vol] 187 mg/dL High 65 - 99 mg/dL [facility] Interpretation and review of laboratory results Abnormal [facility] Glucose [Mass/Vol] 133 mg/dL High 65 - 99 mg/dL [facility] Interpretation and review of laboratory results Abnormal [facility] Glucose [Mass/Vol] 180 mg/dL High 65 - 99 mg/dL [facility] Interpretation and review of laboratory results Abnormal [facility] Glucose [Mass/Vol] 147 mg/dL High 65 - 99 mg/dL [facility] Interpretation and review of laboratory results Abnormal [facility] PT/INRon 07-08-2020 INR Coag (PPP) [Relative time] 1.1 {INR} [facility] PT Coag (PPP) [Time] 14.1 [facility] During the induction phase of oral anticoagulation, the INR may not reflect the anticoagulation status of the patient. Therapeutic ranges for INR's are: Most clinical situations: INR 2.0-3.0 Mechanical Prosthetic Valve: INR 2.5-3.5 Critical: INR >5.0 [facility] Protein, Urine, Randomon Protein (U) [Mass/Vol] 629.9 mg/dL [facility] Reflex Lactic Acid, Plasmaon 07-08-2020 Interpretation and review of laboratory results Normal [facility] Lactate [Moles/Vol] 1.6 mmol/L 0.6 - 2 mmol/L [facility] TROPONINon 07-08-2020 Interpretation and review of laboratory results Abnormal [facility] Troponin I.cardiac [Mass/Vol] ng/mL Critically high < -/+ 8 change ng/L [facility] Troponin I.cardiac [Mass/Vol] 152 ng/L Critically high <=45 [facility] Troponin I.cardiac [Mass/Vol] Probable acute injury or myocardial infarction. [facility] Interpretation and review of laboratory results Abnormal [facility] Troponin I.cardiac [Mass/Vol] 146 ng/L Critically high <=45 [facility] Troponin I.cardiac [Mass/Vol] Probable acute injury or myocardial infarction. [facility] Troponin I.cardiac [Mass/Vol] ng/mL Critically high < -/+ 8 change ng/L [facility] TSH with Reflex Free T4on Interpretation and review of laboratory results Normal [facility] TSH Qn 0.62 m[IU]/L [facility] URINALYSISon 07-08-2020 Bacteria Auto Ql (U) Rare Abnormal None Se en /hpf [facility] Bilirubin Ql (U) Negative Negative [facility] Clarity Refractometry automated (U) Clear Clear [facility] Color (U) Yellow Colorless, Yellow [facility] Epithelial cells.squamous Auto (Urine sed) [#/Area] <1 [facility] Glucose Auto test strip (U) [Mass/Vol] 50 Abnormal Negative mg/dL [facility] Hemoglobin Auto test strip Ql (U) Moderate Abnormal Negative [facility] Hyaline casts Auto (Urine sed) [#/Area] 0-2 0 - 2 /lpf [facility] Interpretation and review of laboratory results Abnormal [facility] Ketones (U) [Mass/Vol] Negative Negative mg/dL [facility] Leukocyte esterase Auto test strip Ql (U) Negative Negative [facility] Mucus Auto (Urine sed) [#/Area] Rare None Seen, Rare /lpf [facility] Nitrite Auto test strip Ql (U) Negative Negative [facility] pH (U) 6.5 [pH] [facility] Protein (U) [Mass/Vol] mg/dL Abnormal Negative mg/dL [facility] RBC Auto (Urine sed) [#/Area] 84 High [facility] Specific gravity (U) [Rel density] 1.016 [facility] Transitional cells Computer assisted (U) [#/Area] <1 [facility] Urobilinogen (U) [Mass/Vol] <2.0 <2.0 mg/dL [facility] WBC Auto (Urine sed) [#/Area] 7 High [facility] Microscopic examinat ion is performed on all urinalysis samples and only positive findings are reported. The test for blood on the chemical analytic portion of urinalysis may also be positive due to hemoglobinuria and myoglobinuria and if red blood cells are present they are quantified by microscopic examination. [facility] Bacteria Auto Ql (U) None Seen None Se en /hpf [facility] Bilirubin Ql (U) Negative Negative [facility] Clarity Refractometry automated (U) Clear Clear [facility] Color (U) Yellow Colorless, Yellow [facility] Epithelial cells.squamous Auto (Urine sed) [#/Area] <1 [facility] Glucose Auto test strip (U) [Mass/Vol] Negative Negative mg/dL [facility] Hemoglobin Auto test strip Ql (U) Moderate Abnormal Negative [facility] Interpretation and review of laboratory results Abnormal [facility] Ketones (U) [Mass/Vol] Negative Negative mg/dL [facility] Leukocyte esterase Auto test strip Ql (U) Negative Negative [facility] Mucus Auto (Urine sed) [#/Area] Rare None Seen, Rare /lpf [facility] Nitrite Auto test strip Ql (U) Negative Negative [facility] pH (U) 5.0 [pH] [facility] Protein (U) [Mass/Vol] Negative Negative mg/dL [facility] RBC Auto (Urine sed) [#/Area] 34 High [facility] Specific gravity (U) [Rel density] 1.035 High [facility] Urobilinogen (U) [Mass/Vol] <2.0 <2.0 mg/dL [facility] WBC Auto (Urine sed) [#/Area] 5 [facility] Microscopic examinat ion is performed on all urinalysis samples and only positive findings are reported. The test for blood on the chemical analytic portion of urinalysis may also be positive due to hemoglobinuria and myoglobinuria and if red blood cells are present they are quantified by microscopic examination. [facility] Urine Electrolyteson 020 Chloride (U) [Moles/Vol] 117 mmol/L [facility] Potassium (U) [Moles/Vol] 35.0 mmol/L [facility] Sodium (U) [Moles/Vol] 126 mmol/L [facility] VITAMIN D, TOTAL, 25-OHon 25-Hydroxyvitamin D2+25-Hydroxyvitamin D3 [Mass/Vol] 13 ng/mL Low 30 - 100 ng/mL [facility] Comment on above: Vitamin D status: [...] Interpretation and review of laboratory results Abnormal [facility] Assay performed mallika Lira's chemiluminescence methodology. [facility] XR ABDOMEN /KUB/FLAT PLATE/1 VIEWon 07-08-2020 [...] 08, 2020 2:22:34 AM EST Normal [facility] Comment on above: Order Comment: RN to call when ready. Injury/Trauma or Illness?:Illness/Other How long have you had these symptoms (acute/chronic)?:Acute Reason for exam?:OG tube placement History of cancer?:NA Surgeries, chemotherapy, or radiation?:NA Type of Exam?:Initial Additional signs and symptoms?:n XR ABDOMEN 1 VIEWon 07-08-20 20 Enteric tube in adeq uate position. Workstation ID: [id number] [facility], Boris In ji Speech - 07/08/2020 2:25 AM EST EXAMINATION: XR [...] tube in adequate position. Workstation ID: [id number] [facility] EXAMINATION: XR ABDO MEN /KUB/FLAT PLATE/1 [...] Osseous structures grossly unremarkable. No pathologic calcification. [facility] XR CHEST PA/APon 07-08-2020 XR CHEST [...] TueJul 07, 2020 11:29:35 PM EST Normal [facility] Comment on above: Order Comment: Injur y/Trauma or Illness?:Illness/Other How long have you had these symptoms (acute/chronic)?:Acute Reason for exam?:post intubation History of cancer?:NA Surgeries, chemotherapy, or radiation?:NA Type of Exam?:Initial Additional signs and symptoms?:. Blood Gason 07-07-2020 HCO3 (Bld) [Moles/Vol] 26.9 mmol/L High 22 - 26 mmol/L [facility] Oxygen (Bld) [Partial pressure] 531 mm[Hg] High [facility] CBC WITH AUTO DIFFERENTIALon 07-07-2020 Basophils (Bld) [#/Vol] 0.05 10*3/uL [facility] Basophils/100 WBC (Bld) 0.4 % [facility] Eosinophils (Bld) [#/Vol] 0.39 10*3/uL [facility] Eosinophils/100 WBC (Bld) 3.3 % [facility] Erythrocyte distribution width (RBC) [Entitic vol] 17.2 % High 11.6 - 14.8 % [facility] Hematocrit (Bld) [Volume fraction] 39.7 % Low 41 - 53 % [facility] Hemoglobin (Bld) [Mass/Vol] 12.0 g/dL Low 13.5 - 17.5 g/dL [facility] Immature granulocytes (Bld) [#/Vol] 0.14 10*3/uL [facility] Immature granulocytes/100 WBC (Bld) 1.20 % [facility] Comment on above: The IG parameter is the percentage of metamyelocytes, myelocytes and promyelocytes. An immature granulocyte count (IG) of 1% or more suggests the possibility of infection, an IG count of 3% is very likely related to an infection. Interpretation and review of laboratory results Abnormal [facility] Lymphocytes (Bld) [#/Vol] 4.22 10*3/uL High [facility] Lymphocytes/100 WBC (Bld) 36.1 % [facility] MCH (RBC) [Entitic mass] 22.1 pg Low 26 - 34 pg [facility] MCHC (RBC) [Mass/Vol] 30.2 g/dL Low 31 - 37 g/dL [facility] MCV (RBC) [Entitic vol] 73.1 fL Low 80 - 100 fL [facility] Monocytes (Bld) [#/Vol] 0.88 10*3/uL [facility] Monocytes/100 WBC (Bld) 7.5 % [facility] Neutrophils (Bld) [#/Vol] 6.01 10*3/uL [facility] Neutrophils/100 WBC (Bld) 51.5 % [facility] Nucleated RBC (Bld) [#/Vol] 0.03 10*3/uL [facility] Nucleated RBC/100 WBC (Bld) [Ratio] 0.3 % [facility] Platelet mean volume (Bld) [Entitic vol] 10.0 fL 9.4 - 12.4 fL [facility] Platelets (Bld) [#/Vol] 237 10*3/uL [facility] RBC (Bld) [#/Vol] 5.43 10*6/uL [facility] ealt WBC (Bld) [#/Vol] 11.69 10*3/uL [facility] COVID-19, Molecularon 2019 Interpretation and review of laboratory results Normal [facility] SARS-CoV-2 Not Detected Not Detected [facility] Comment on above: This test was perfor med under the FDA's Emergency Use Authorization (EUA). Testing was performed using the [employer] ID NOW COVID-19 assay on the ID NOW platform. This test has not been approved for use in asymptomatic patients and its performance in this patient population has not been evaluated. Negative results do not rule out the presence of SARS-CoV-2/COVID-19. Fact sheets for the EUA can be found at the following links: For Healthcare Providers: https://www.fda.gov/media/227877/download For Patients: https://www.fda.gov/media/622533/download Chem 07-07-2020 Anion gap [Moles/Vol] 15 mmol/L 10 - 20 mmol/L [facility] Chloride [Moles/Vol] 104 mmol/L 98 - 11 1 mmol/L [facility] Creatinine [Mass/Vol] 1.05 mg/dL 1.00 - 1.70 [facility] GFR/1.73 sq M predicted among non-blacks MDRD (S/P/Bld) [Vol rate/Area] The eGFR should be used for monitoring renal function only and not for medication dosing. [facility] GFR/1.73 sq M.predicted CKD-EPI (S/P/Bld) [Vol rate/Area] 47 Low >=60 mL/min/1.73 m2 [facility] GFR/1.73 sq M.predicted CKD-EPI (S/P/Bld) [Vol rate/Area] 41 Low >=60 mL/min/1.73 m2 [facility] Glucose [Mass/Vol] 188 mg/dL High 65 - 99 mg/dL [facility] HCO3 [Moles/Vol] 21 mmol/L 21 - 32 mmol/L [facility] Interpretation and review of laboratory results Abnormal [facility] Potassium [Moles/Vol] 4.2 mmol/L 3.5 - 5.1 mmol/L [facility] Sodium [Moles/Vol] 136 mmol/L 135 - 145 mmol/L [facility] Urea nitrogen [Mass/Vol] 16 mg/dL 8 - 25 mg/dL [facility] Urea nitrogen/Creatinine [Mass ratio] 15.2 mg/mg [facility] Hematologyon 07-07-2020 Hemoglobin (Bld) [Mass/Vol] 12.7 g/dL Low 13.5 - 18 g/dL [facility] pH (Bld) 7.15 [pH] Critically low [facility] INTUBATION 07-07-2020 Kinsey Ignacio MD 07/07/2020 11:37 PM [...] Time out: Immediately prior to procedure a time out was called to verify the correct patient, procedure, equipment, systems support engineer and site/side marked as required. Timeout performed [...] the procedure well with no immediate complications [facility] Imm/Pathon 07-07-2020 Specimen source Nom (Unsp spec) Brachial, left [facility] Metabolic Panelon 07-07-2020 CO2 (Bld) [Partial pressure] 77.0 mm[Hg] High [facility] NT Pro BNPon 07-07-2020 Interpretation and review of laboratory results Normal [facility] Natriuretic peptide.B prohormone N-Terminal [Mass/Vol] 266 pg/mL 0 - 300 pg/mL [facility] Pride Study Cut-offs Rule In: < /= 50 Years >450 pg/mL 51 Years - 75 Years >900 pg/mL 76 Years - 99 Years >1800 pg/mL Rule Out: All patients <300 pg/mL [facility] Otheron 07-07-2020 Alveolar-arterial oxygen Partial pressure difference 66.6 mm Hg [facility] Base excess Calc (Bld) [Moles/Vol] -3.5 mmol/L Low [facility] Breath rate setting Ventilator synchronized intermittent mandatory 0 [facility] Hematocrit (BldA) [Volume fraction] 38.8 % Low 41 - 53 % [facility] Inhaled oxygen concentration 100 % [facility] Interpretation and review of laboratory results Abnormal [facility] PEEP Respiratory system 5 [facility] Result Notification dr ignacio [facility] ealth Tidal volume setting Ventilator 500 [facility] Critical result acte d upon time of test. Test performed at bedside. [facility] TROPONINon 07-07-2020 Troponin I.cardiac [Mass/Vol] Normal [facility] Troponin I.cardiac [Mass/Vol] ng/mL <=45 ng/L [facility] XR Chest 1 Viewon 07-07-2020 Interface, [...] cm above the virgie. Workstation ID: [id number] [facility] 1. Nonacute portable chest. 2. Tip of the ET tube is 5.5 cm above the virgie. Workstation ID: [id number] [facility] EXAMINATION: XR CHES T PA/AP 07/07/2020 [...] tube is 5.5 cm above the virgie. [facility] XR FOOT RIGHT 3+ VIEWS (JEREMIAS HARPER)on 04-22-2020 1. Fracture not iden tified. 2. Degenerative changes. 3. Soft tissue swelling. Workstation ID: [id number] [facility] EXAMINATION: XR FOOT RIGHT 3+ VIEWS (STANDARD) 04/22/2020 2:17 pm HISTORY: ORDERING SYSTEM PROVIDED HISTORY: Pain, TECHNOLOGIST PROVIDED HISTORY: Illness/Other Reason for exam: Bilateral Foot pain Rt>Lt., 'Left foot broken bone Cancer History: Surgery, RadiationHistory: unk Encounter Type: Initial Additional signs and symptoms: . ORDERING SYSTEM PROVIDED DIAGNOSIS CODES: R52 Pain COMPARISON: 07/31/2018. FINDINGS: Three views right foot with upright lateral view. Fracture not identified. There is moderate degenerative change 1st metatarsophalangeal joint. There is also degenerative changes in the tarsal metatarsal joints and the talonavicular joint. Soft tissue swelling noted in the foot and ankle. [facility] Interface, Rad In Fu ji Speechq - 04/22/2020 3:05 PM EDT EXAMINATION: XR FOOT RIGHT 3+ VIEWS (STANDARD) 04/22/2020 2:17 pm HISTORY: ORDERING SYSTEM PROVIDED HISTORY: Pain, TECHNOLOGIST PROVIDED HISTORY: Illness/Other Reason for exam: Bilateral Foot pain Rt>Lt., 'Left foot broken bone Cancer History: Surgery, RadiationHistory: unk Encounter Type: Initial Additional [...] changes. 3. Soft tissue swelling. Workstation ID: [id number] [facility] POC Glucoseon 01-08-2020 Glucose [Mass/Vol] 127 mg/dL High 65 - 99 mg/dL [facility] Interpretation and review of laboratory results Abnormal [facility] XR Knee Right 2 Views (Stand no)on 01-08-2020 Postsurgical changes without acute osseous abnormality. Workstation ID: [id number] [facility] EXAMINATION: XR KNEE RIGHT 2 VIEWS [...] displaced fracture identified. Surgical tammy are noted. [facility] Interface, Rad In Fu ji Speechq [...] without acute osseous abnormality. Workstation ID: [id number] [facility] CT Knee Right Without Contra ston 01-03-2020 Right knee tricompar tmental osteoarthritis with moderate joint effusion, moderate Morgan's cyst and synovitis. No significant osteoarthritic changes of the right hip and ankle. [employer] Workstation ID: [id number] [facility] EXAMINATION: CT KNEE RIGHT WITHOUT CONTRAST [...] lateral knee compartment joint space narrowing with [id number] appearance, subchondral sclerosis, subchondral cystic changes and [...] edema at the lower leg and ankle. [facility], Rad In Fu ji Speechq - 01/03/2020 [...] lateral knee compartment joint space narrowing with [id number] appearance, subchondral sclerosis, subchondral cystic changes and [...] changes of the right hip and ankle. [employer] Workstation ID: [id number] [facility] Cult, Bloodon 11-12-2019 Cult, Blood Specimen Description .BLOOD Special Requests R AC 2ML Culture NO GROWTH 6 DAYS Report Status FINAL 11/12/2019 Normal [facility] Comment on above: Performed By: #### C DP, CP #### [facility] [address] [place] [address] Material Handler 2Nd Shift: Todd Foster MD Cult,Bloodon 11-12-2019 Cult,Blood Specimen Description .BLOOD Special Requests 10ML R AC Culture NO GROWTH 6 DAYS Report Status FINAL 11/12/2019 Normal [facility] Comment on above: Performed By: #### C ESTHER, CP #### [facility] [address] [place] [address] Material Handler 2Nd Shift: Todd Foster MD Cult,Respiratoryon 0 Cult,Respiratory Specimen [...] REPORTED Trimethoprim/Sulfa <=10 SUSCEPTIBLE Vancomycin 1 SUSCEPTIBLE Normal [facility] Comment on above: Performed By: #### C ESTHER, CP #### [facility] [address] [place] [address] Material Handler 2Nd Shift: Todd Foster MD Brain Natri. Peptideon 11-05 Natriuretic peptide B (Bld) [Mass/Vol] Pro-BNP Reference Range: Normal [facility] Comment on above: Result Comment: Rule Out: <300 Combs Zone: Age <50 300-450 Age 50-75 300-900 Age >75 300-1800 Usually represents mild to moderate HF but other cardiopulmonary causes cannot be ruled out. Rule In: Age <50 >450 Age 50-75 >900 Age >75 >1800 Performed By: #### C ESTHER, CP #### [facility] [address] [place], [place] [id number] Material Handler 2Nd Shift: Todd Foster MD Natriuretic peptide B (Bld) [Mass/Vol] 143 pg/mL Normal <300 [facility] Comment on above: Result Comment: Pro- BNP results cannot be compared to BNP results. Performed By: #### C DP, CP #### [facility] [address] [place] [address] Material Handler 2Nd Shift: Todd Foster MD Brain Natriuretic Peptideon 11-06-2019 Natriuretic peptide B (Bld) [Mass/Vol] Pro-BNP Reference Range: [place], [place] Comment on above: Rule Out: <300 Combs Zone: Age <50 300-450 Age 50-75 300-900 Age >75 300-1800 Usually represents mild to moderate HF but other cardiopulmonary causes cannot be ruled out. Rule In: Age <50 >450 Age 50-75 >900 Age >75 >1800 Natriuretic peptide B (Bld) [Mass/Vol] 143 pg/mL <300 [place] Comment on above: Pro-BNP results [place] ot be compared to BNP results. CBC Auto Differentialon 10-20 Basophils (Bld) [#/Vol] 0.00 10*3/uL [place] Basophils/100 WBC (Bld) 0 % 0 - 2 % [place] Differential Type NOT REPORTED [place] Eosinophils (Bld) [#/Vol] 0.00 10*3/uL [place] Eosinophils/100 WBC (Bld) 1 % 0 - 5 % [place] Erythrocyte distribution width (RBC) [Ratio] 16.5 % High 12.1 - 15.2 % [place] Hematocrit (Bld) [Volume fraction] 38.4 % Low 41 - 53 % [place] Hemoglobin (Bld) [Mass/Vol] 11.9 g/dL Low 13.5 - 17.5 g/dL [place] Interpretation and review of laboratory results Abnormal [place] Lymphocytes (Bld) [#/Vol] 1.00 10*3/uL [place] Lymphocytes/100 WBC (Bld) 22 % 13 - 44 % [place] MCH (RBC) [Entitic mass] 22.6 pg Low 26 - 34 pg [place] MCHC (RBC) [Mass/Vol] 31.1 g/dL 31 - 37 g/dL [place] MCV (RBC) [Entitic vol] 72.8 fL Low 80 - 100 fL [place] Monocytes (Bld) [#/Vol] 0.50 10*3/uL [place] Monocytes/100 WBC (Bld) 11 % High 5 - 9 % [place] Platelet mean volume (Bld) [Entitic vol] NOT REPORTED 6 - 12 fL [place] Platelets (Bld) [#/Vol] NOT REPORTED [place] Platelets (Bld) [#/Vol] 134 10*3/uL Low [place] RBC (Bld) [#/Vol] 5.28 10*6/uL 4.5 - 5.9 m/uL [place] RBC morphology finding Nom (Bld) NOT REPORTED [place] Segmented neutrophils/100 WBC (Bld) 66 % 39 - 75 % [place] Segs Absolute 3.00 [place] WBC (Bld) [#/Vol] 4.4 10*3/uL [place] WBC (Bld) [#/Vol] NOT REPORTED per 100 WBC [place] WBC Morphology NOT REPORTED [place] CBC with Diffon 11-06-2019 Abs. Basophil 0.00 k/uL Normal 0.0-0.2 [facility] Comment on above: Performed By: #### C DP, CP #### [facility] [address] [place] [address] Material Handler 2Nd Shift: Todd Foster MD Abs.Neutrophil (Seg) 3.00 k/uL Normal 2.1-6.5 [facility] Comment on above: Performed By: #### C DP, CP #### [facility] [address] [place] [address] Material Handler 2Nd Shift: Todd Foster MD Basophils/100 WBC (Bld) 0 % Normal 0-2 [facility] Comment on above: Performed By: #### C DP, CP #### [facility] [address] [place], [place] [id number] Material Handler 2Nd Shift: Todd Foster MD Eosinophils (Bld) [#/Vol] 0.00 10*3/uL Normal 0.0-0.4 [facility] Comment on above: Performed By: #### C DP, CP #### [facility] [address] [place], [place] [id number] Material Handler 2Nd Shift: Todd Foster MD Eosinophils/100 WBC (Bld) 1 % Normal 0-5 [facility] Comment on above: Performed By: #### C DP, CP #### [facility] [address] [place], [place] [id number] Material Handler 2Nd Shift: Todd Foster MD Lymphocytes (Bld) [#/Vol] 1.00 10*3/uL Normal 1.0-4.8 [facility] Comment on above: Performed By: #### C DP, CP #### [facility] [address] [place], [place] [id number] Material Handler 2Nd Shift: Todd Foster MD Lymphocytes/100 WBC (Bld) 22 % Normal 13-44 [facility] Comment on above: Performed By: #### C DP, CP #### [facility] [address] [place], [place] [id number] Material Handler 2Nd Shift: Todd Foster MD Monocytes (Bld) [#/Vol] 0.50 10*3/uL Normal 0.0-1.0 [facility] Comment on above: Performed By: #### C DP, CP #### [facility] [address] [place], [place] [id number] Material Handler 2Nd Shift: Todd Foster MD Monocytes/100 WBC (Bld) 11 % High 5-9 [facility] Comment on above: Performed By: #### C DP, CP #### [facility] [address] [place] [address] Material Handler 2Nd Shift: Todd Foster MD Neutrophil (Seg) 66 % Normal 39-75 [facility] Comment on above: Performed By: #### C DP, CP #### [facility] [address] [place] [address] Material Handler 2Nd Shift: Todd Foster MD Erythrocyte distribution width (RBC) [Ratio] 16.5 % High 12.1-15.2 [facility] Comment on above: Performed By: #### C DP, CP #### [facility] [address] [place] [address] Material Handler 2Nd Shift: Todd Foster MD Hematocrit (Bld) [Volume fraction] 38.4 % Low 41-53 [facility] Comment on above: Performed By: #### C DP, CP #### [facility] [address] [place] [address] Material Handler 2Nd Shift: Todd Foster MD Hemoglobin (Bld) [Mass/Vol] 11.9 g/dL Low 13.5-17.5 [facility] Comment on above: Performed By: #### C DP, CP #### [facility] [address] [place] [address] Material Handler 2Nd Shift: Todd Foster MD MCH (RBC) [Entitic mass] 22.6 pg Low 26-34 [facility] Comment on above: Performed By: #### C DP, CP #### [facility] [address] [place] [address] Material Handler 2Nd Shift: Todd Foster MD MCHC (RBC) [Mass/Vol] 31.1 g/dL Normal 31-37 [facility] Comment on above: Performed By: #### C DP, CP #### [facility] [address] [place] [address] Material Handler 2Nd Shift: Todd Foster MD MCV (RBC) [Entitic vol] 72.8 fL Low 80-100 [facility] Comment on above: Performed By: #### C DP, CP #### [facility] [address] [place] [address] Material Handler 2Nd Shift: Todd Foster MD Platelets (Bld) [#/Vol] 134 10*3/uL Low 140-450 [facility] Comment on above: Performed By: #### C DP, CP #### [facility] [address] [place] [address] Material Handler 2Nd Shift: Todd Foster MD RBC (Bld) [#/Vol] 5.28 10*6/uL Normal 4.5-5.9 [facility] Comment on above: Performed By: #### C DP, CP #### [facility] [address] [place] [address] Material Handler 2Nd Shift: Todd Foster MD WBC (Bld) [#/Vol] 4.4 10*3/uL Normal 3.5-11.0 [facility] Comment on above: Performed By: #### C DP, CP #### [facility] [address] [place] [address] Material Handler 2Nd Shift: Todd Foster MD Abs.Imm.Granulocyte NOT REPORTED Normal 0.00-0.[address] [facility] Comment on above: Performed By: #### C DP, CP #### [facility] [address] [place] [address] Material Handler 2Nd Shift: Todd Foster MD Auto Diff Performed NOT REPORTED Normal [facility] Comment on above: Performed By: #### C DP, CP #### [facility] [address] [place] [address] Material Handler 2Nd Shift: Todd Foster MD Immature granulocytes (Bld) [#/Vol] NOT REPORTED Normal 0 [facility] Comment on above: Performed By: #### C DP, CP #### [facility] [address] [place], [place] [id number] Material Handler 2Nd Shift: Todd Foster MD NRBC Automated NOT REPORTED Normal [facility] Comment on above: Performed By: #### C DP, CP #### [facility] [address] [place], [place] [id number] Material Handler 2Nd Shift: Todd Foster MD Platelet mean volume (Bld) [Entitic vol] NOT REPORTED Normal 6.0-12.0 [facility] Comment on above: Performed By: #### C DP, CP #### [facility] [address] [place] [id number] Material Handler 2Nd Shift: Todd Foster MD Platelets (Bld) [#/Vol] NOT REPORTED Normal [facility] Comment on above: Performed By: #### C DP, CP #### [facility] [address] [place], [place] [id number] Material Handler 2Nd Shift: Todd Foster MD RBC morphology finding Nom (Bld) NOT REPORTED Normal [facility] Comment on above: Performed By: #### C DP, CP #### [facility] [address] [place], [place] [id number] Material Handler 2Nd Shift: Todd Foster MD WBC Morphology NOT REPORTED Normal [facility] Comment on above: Performed By: #### C DP, CP #### [facility] [address] [place] [id number] Material Handler 2Nd Shift: Todd Foster MD CT CHEST WO CONTRASTon [...] Antony Molina MD 11/06/19 Final result Normal [facility] Jhony, pn Incoming R adiant Results From [employer] - 11/06/2019 5:40 AM EDT EXAMINATION: CT [...] findings are seen. 2. Mild bilateral gynecomastia. [place] 1. Findings consiste nt with multifocal small airway infection, most prominent in the left lower lobe. No other acute cardiopulmonary findings are seen. 2. Mild bilateral gynecomastia. [place] EXAMINATION: CT CHES T WO CONTRAST [...] noted. No acute osseous abnormality is seen. [place] Comp Metabolic Profon 2019 (cont.) Normal [facility] Comment on above: Result Comment: Aver age GFR for 50-59 years old: 93 mL/min/1.73sq m Chronic Kidney Disease: <60 mL/min/1.73sq m Kidney failure: <15 mL/min/1.73sq m eGFR calculated using average adult body mass. Additional eGFR calculator available at: http://www.[employer].LiveAction/multiple_crcl_2012.htm Performed By: #### C DP, CP #### [facility] [address] [place] [address] Material Handler 2Nd Shift: Todd Foster MD Albumin [Mass/Vol] 4.3 g/dL Normal 3.5-5.2 [facility] Comment on above: Performed By: #### C DP, CP #### [facility] [address] [place], [place] [id number] Material Handler 2Nd Shift: Todd Foster MD Alkaline Phos 78 U/L Normal 40-129 [facility] Comment on above: Performed By: #### C DP, CP #### [facility] [address] [place], [place] [phone] Material Handler 2Nd Shift: Todd Foster MD ALT [Catalytic activity/Vol] 32 U/L Normal 5-41 [facility] Comment on above: Performed By: #### C DP, CP #### [facility] [address] [place] [address] Material Handler 2Nd Shift: Todd Foster MD Anion gap [Moles/Vol] 12 mmol/L Normal 9-17 [facility] Comment on above: Performed By: #### C DP, CP #### [facility] [address] [place] [address] Material Handler 2Nd Shift: Todd Foster MD AST [Catalytic activity/Vol] 40 U/L High <40 [facility] Comment on above: Performed By: #### C DP, CP #### [facility] [address] [place], [place] [phone] Material Handler 2Nd Shift: Todd Foster MD Bilirubin Ql (U) 0.78 mg/dL Normal 0.30-1.20 [facility] Comment on above: Performed By: #### C DP, CP #### [facility] [address] [place] [address] Material Handler 2Nd Shift: Todd Foster MD BUN/CRE Ratio 22 High 9-20 [facility] Comment on above: Performed By: #### C DP, CP #### [facility] [address] [place] [address] Material Handler 2Nd Shift: Todd Foster MD Calcium [Mass/Vol] 9.5 mg/dL Normal 8.6-10.4 [facility] Comment on above: Performed By: #### C DP, CP #### [facility] [address] [place] [address] Material Handler 2Nd Shift: Todd Foster MD Chloride [Moles/Vol] 96 mmol/L Low 98-107 [facility] Comment on above: Performed By: #### C DP, CP #### [facility] [address] [place] [address] Material Handler 2Nd Shift: Todd Foster MD CO2 [Moles/Vol] 26 mmol/L Normal 20-31 [facility] Comment on above: Performed By: #### C DP, CP #### [facility] [address] [place] [address] Material Handler 2Nd Shift: Todd Foster MD Creatinine [Mass/Vol] 0.69 mg/dL Low 0.70-1.20 [facility] Comment on above: Performed By: #### C DP, CP #### [facility] [address] [place] [address] Material Handler 2Nd Shift: Todd Foster MD GFR, Amer >60 Normal >60 [facility] Comment on above: Performed By: #### C DP, CP #### [facility] [address] [place] [address] Material Handler 2Nd Shift: Todd Foster MD GFR,non Amer >60 Normal >60 [facility] Comment on above: Performed By: #### C DP, CP #### [facility] [address] [place] [address] Material Handler 2Nd Shift: Todd Foster MD Glucose [Mass/Vol] 113 mg/dL High 70-99 [facility] Comment on above: Performed By: #### C DP, CP #### [facility] [address] [place], [place] [id number] Material Handler 2Nd Shift: Todd Foster MD Potassium [Moles/Vol] 4.3 mmol/L Normal 3.7-5.3 [facility] Comment on above: Performed By: #### C DP, CP #### [facility] [address] [place], [place] [id number] Material Handler 2Nd Shift: Todd Foster MD Protein [Mass/Vol] 9.3 g/dL High 6.4-8.3 [facility] Comment on above: Performed By: #### C DP, CP #### [facility] [address] [place], [place] [address] Material Handler 2Nd Shift: Todd Foster MD Sodium [Moles/Vol] 134 mmol/L Low 135-144 [facility] Comment on above: Performed By: #### C DP, CP #### [facility] [address] [place], [place] [address] Material Handler 2Nd Shift: Todd Foster MD Urea nitrogen [Mass/Vol] 15 mg/dL Normal 6-20 [facility] Comment on above: Performed By: #### C DP, CP #### [facility] [address] [place], [place] [id number] Material Handler 2Nd Shift: Todd Foster MD Albumin/Globulin [Mass ratio] NOT REPORTED Normal 1.0-2.5 [facility] Comment on above: Performed By: #### C DP, CP #### [facility] [address] [place], [place] [id number] Material Handler 2Nd Shift: Todd Foster MD Staging: NOT REPORTED Normal [facility] Comment on above: Performed By: #### C DP, CP #### [facility] [address] [place], [place] [id number] Material Handler 2Nd Shift: Todd Foster MD Comprehensive Metabolic Pane ras 11-06-2019 Albumin [Mass/Vol] 4.3 g/dL 3.5 - 5.2 g/dL [place] Albumin/Globulin [Mass ratio] NOT REPORTED [place] ALP [Catalytic activity/Vol] 78 U/L 40 - 129 U/L [place] ALT [Catalytic activity/Vol] 32 U/L 5 - 41 U/L [place] Anion gap [Moles/Vol] 12 mmol/L 9 - 17 mmol/L [place] AST [Catalytic activity/Vol] 40 U/L High <40 [place] Bilirubin Ql (U) 0.78 mg/dL 0.3 - 1.2 mg/dL [place] Bun/Cre Ratio 22 High [place] Calcium [Mass/Vol] 9.5 mg/dL 8.6 - 10. 4 mg/dL [place] Chloride [Moles/Vol] 96 mmol/L Low 98 - 10 7 mmol/L [place] CO2 [Moles/Vol] 26 mmol/L 20 - 31 mmol/L [place] Creatinine [Mass/Vol] 0.69 mg/dL Low 0.7 - 1.2 mg/dL [place] GFR >60 >60 mL/min [place] GFR Non- >60 >60 mL/min [place] GFR/1.73 sq M predicted among non-blacks MDRD (S/P/Bld) [Vol rate/Area] NOT REPORTED [place] GFR/1.73 sq M predicted among non-blacks MDRD (S/P/Bld) [Vol rate/Area] [place] Comment on above: Average GFR for 50-5 9 years old: 93 mL/min/1.73sq m Chronic Kidney Disease: <60 mL/min/1.73sq m Kidney failure: <15 mL/min/1.73sq m eGFR calculated using average adult body mass. Additional eGFR calculator available at: http://www.[employer] Earth/multiple_crcl_2012.htm Glucose [Mass/Vol] 113 mg/dL High 70 - 99 mg/dL [place] Interpretation and review of laboratory results Abnormal [place] Potassium [Moles/Vol] 4.3 mmol/L 3.7 - 5.3 mmol/L [place] Protein [Mass/Vol] 9.3 g/dL High 6.4 - 8.3 g/dL [place] Sodium [Moles/Vol] 134 mmol/L Low 135 - 144 mmol/L [place] Urea nitrogen [Mass/Vol] 15 mg/dL 6 - 20 mg/dL [place] EKG 12 Leadon 11-06-2019 Atrial Rate 95 BPM [place] P Bison 53 degrees [place] P-R Interval 148 ms [place] Q-T Interval 344 ms [place] QRS Duration 80 ms [place] QTc Calculation (Bazett) 432 ms [place] R Bison 49 degrees [place] T Bison 45 degrees [place] Ventricular Rate 95 BPM [place] Normal sinus rhythm Normal ECG When compared with ECG of 04-MAR-2019 11:51, No significant change was found [place] Jhony, M[employer] Incoming E kg Results From [employer] [place] - 11/06/2019 7:40 AM EDT Normal sinus rhythm Normal ECG When compared with ECG of 04-MAR-2019 11:51, No significant change was found [place] Flu A/B Ag Detectionon 11-05 Flu A/B Ag Detection Specimen Descriptio n .NASOPHARYNGEAL SWAB Special Requests NOT REPORTED Direct Exam POSITIVE for Influenza A Antigen NEGATIVE for Influenza B Antigen Report Status FINAL 11/06/2019 Normal [facility] Comment on above: Performed By: #### C DP, CP #### [facility] [address] [place] [address] Material Handler 2Nd Shift: Todd Foster MD Lactate, Sepsison 11-06-2019 Lactic Acid, Sepsis 1.2 mmol/L Normal 0.5-1.9 [facility] Comment on above: Performed By: #### C DP, CP #### [facility] [address] [place] [address] Material Handler 2Nd Shift: Todd Foster MD Lactic Acid,Sep Wbld NOT REPORTED Normal 0.5-1.9 [facility] Comment on above: Performed By: #### C DP, CP #### [facility] [address] [place] [address] Material Handler 2Nd Shift: Todd Foster MD Lactic Acid, Sepsis 1.2 mmol/L 0.5 - 1. 9 mmol/L [place] Lactic Acid, Sepsis, Whole Blood NOT REPORTED 0.5 - 1.9 mmol/L [place] Lactic Acidon 11-06-2019 Lactate [Moles/Vol] 1.2 mmol/L Normal 0.5-2.2 [facility] Comment on above: Performed By: #### C DP, CP #### [facility] [address] [place] [address] Material Handler 2Nd Shift: Todd Foster MD Lactate [Moles/Vol] 1.2 mmol/L 0.5 - 2. 2 mmol/L [place] Otheron 11-06-2019 Immature granulocytes (Bld) [#/Vol] NOT REPORTED [place] POC PANEL (G3)-ARTon 020 aPTT Coag (Bld) [Time] NOT REPORTED [place] FIO2 [place] Interpretation and review of laboratory results Abnormal [place] Negative Base Excess, Art NOT REPORTED [place] O2 Device/Flow/% NOT REPORTED [place] Oxygen saturation in Blood 96 % 95 - 98 % [place] POC HCO3 26.6 mmol/L High 22 - 26 mmol/L [place] pCO2 39 [place] pCO2 Temp NOT REPORTED mm Hg [place] pH 7.45 [place] pH Temp [place] REPORTED [place] PO2 80 [place] pO2 Temp NOT REPORTED mm Hg [place] Positive Base Excess, Art 3 High [place] TCO2 (calc), Art 28 mmol/L 24 - 30 mmol/L [place] Rapid influenza A/B antigens on 11-06-2019 Direct Exam Positive Abnormal [place] Direct Exam Negative [place] Interpretation and review of laboratory results Abnormal [place] Special Requests NOT REPORTED [place] Specimen Description .NASOPHARYNGEAL SWAB [place] XR CHEST PORTABLEon 11-06-19 XR CHEST [...] Dean Means MD 11/06/19 Final result Normal [facility] Hyperaeration/chroni c changes as well as mild bibasilar streaky opacity, nonspecific. The findings may represent atelectasis or pneumonitis. Further evaluation with follow-up CT chest exam is recommended. [place] Jhony, Mhpn Incoming R adiant Results From [facility]ood[facility]/Pacs - 11/06/2019 2:17 AM EDT EXAM: XR [...] with follow-up CT chest exam is recommended. [place] EXAM: XR CHEST BERTRAM BLE HISTORY: [...] deformity. Surgical clips overlie the left neck. [place] CBC WITH AUTO DIFFERENTIALon 04-03-2019 Basophils (Bld) [#/Vol] 0.01 10*3/uL [facility] Basophils/100 WBC (Bld) 0.3 % [facility] Eosinophils (Bld) [#/Vol] 0.06 10*3/uL [facility] Eosinophils/100 WBC (Bld) 1.9 % [facility] Erythrocyte distribution width (RBC) [Entitic vol] 16.0 % High 11.6 - 14.8 % [facility] Hematocrit (Bld) [Volume fraction] 38.2 % Low 41 - 53 % [facility] Hemoglobin (Bld) [Mass/Vol] 11.9 g/dL Low 13.5 - 17.5 g/dL [facility] Immature granulocytes (Bld) [#/Vol] 0.01 10*3/uL [facility] Immature granulocytes/100 WBC (Bld) 0.30 % [facility] Comment on above: The IG parameter is the percentage of metamyelocytes, myelocytes, and promyelocytes. Interpretation and review of laboratory results Abnormal [facility] Lymphocytes (Bld) [#/Vol] 1.06 10*3/uL [facility] Lymphocytes/100 WBC (Bld) 33.2 % [facility] MCH (RBC) [Entitic mass] 22.2 pg Low 26 - 34 pg [facility] MCHC (RBC) [Mass/Vol] 31.2 g/dL 31 - 37 g/dL [facility] MCV (RBC) [Entitic vol] 71.1 fL Low 80 - 100 fL [facility] Monocytes (Bld) [#/Vol] 0.29 10*3/uL Low [facility] Monocytes/100 WBC (Bld) 9.1 % [facility] Neutrophils (Bld) [#/Vol] 1.76 10*3/uL [facility] Neutrophils/100 WBC (Bld) 55.2 % [facility] Comment on above: Peripheral smear rev iewed manually Nucleated RBC (Bld) [#/Vol] 0.00 10*3/uL [facility] Nucleated RBC/100 WBC (Bld) [Ratio] 0.0 % [facility] Platelet mean volume (Bld) [Entitic vol] 11.2 fL 9 - 15.5 fL [facility] Platelets (Bld) [#/Vol] 128 10*3/uL Low [facility] RBC (Bld) [#/Vol] 5.37 10*6/uL [facility] WBC (Bld) [#/Vol] 3.19 10*3/uL Low [facility] Chem 7on 04-03-2019 Anion gap [Moles/Vol] 10 mmol/L 10 - 20 mmol/L [facility] Chloride [Moles/Vol] 104 mmol/L 98 - 10 8 mmol/L [facility] Creatinine [Mass/Vol] 0.82 mg/dL 0.5 - 1.3 mg/dL [facility] GFR/1.73 sq M predicted among non-blacks MDRD (S/P/Bld) [Vol rate/Area] The eGFR should be used for monitoring renal function only and not for medication dosing. [facility] GFR/1.73 sq M.predicted CKD-EPI (S/P/Bld) [Vol rate/Area] 102 >=60 mL/min/1.73 m2 [facility] Glucose [Mass/Vol] 100 mg/dL High 65 - 99 mg/dL [facility] HCO3 [Moles/Vol] 28 mmol/L 21 - 32 mmol/L [facility] Interpretation and review of laboratory results Abnormal [facility] Potassium [Moles/Vol] 4.1 mmol/L 3.5 - 5.1 mmol/L [facility] Sodium [Moles/Vol] 138 mmol/L 135 - 145 mmol/L [facility] Urea nitrogen [Mass/Vol] 15 mg/dL 8 - 25 mg/dL [facility] Urea nitrogen/Creatinine [Mass ratio] 18.3 mg/mg [facility] ECG 12-LEADon 04-03-2019 Atrial Rate 56 BPM [facility] P Bison 3 degrees [facility] P-R Interval 154 ms [facility] Q-T Interval 446 ms [facility] QRS Duration 86 ms [facility] QTC Calculation (Bezet) 430 ms [facility] R Bison 55 degrees [facility] T Bison 52 degrees [facility] Ventricular Rate [address] [facility] th Sinus bradycardia Ot herwise normal ECG ECG Cart Interpretation see physician note for interpretation. Confirmed by Tamara Obando ([id number]) on 04/03/2019 10:38:52 AM [facility] Kinsey Ignacio MD 04/03/2019 10:14 AM ECG 12 Lead Date/Time: 04/03/2019 10:12 AM Performed by: Kinsey Ignacio MD Authorized by: Kinsey Ignacio MD Comparison: compared with previous ECG Rhythm: sinus rhythm BPM: 56 Conduction: conduction normal ST Segments: ST segments normal T Waves: T waves normal normal OR interval normal QRS interval normal QT interval Clinical impression: normal ECG [facility] MORPHOLOGYon 04-03-2019 Anisocytosis Ql (Bld) 2+ [facility] Roe cells LM Ql (Bld) 1+ [facility] Hypochromia Ql (Bld) 2+ [facility] Microcytes Ql (Bld) 2+ [facility] NT Pro BNPon 04-03-2019 Interpretation and review of laboratory results Normal [facility] Natriuretic peptide.B prohormone N-Terminal [Mass/Vol] 83 pg/mL 0 - 300 pg/mL [facility] Comment on above: Please note reference range change as of 08/09/18. [employer] Study Cut-offs Rule In: < /= 50 Years >450 pg/mL 51 Years - 75 Years >900 pg/mL 76 Years - 99 Years >1800 pg/mL Rule Out: All patients <300 pg/mL [facility] TROPONINon 04-03-2019 Troponin I.cardiac [Mass/Vol] Normal [facility] Troponin I.cardiac [Mass/Vol] ng/mL <=45 ng/L [facility] XR Chest 1 Viewon 04-03-2019 EXAMINATION: XR CHES T PA/AP, 04/03/2019 HISTORY: SHORTNESS OF BREATH COMPARISON: Chest, 03/04/2019. FINDINGS: Cardiac size, mediastinal contour and pulmonary vascularity are within normal limits. The lungs are well expanded and clear. [facility] No acute cardiopulmo nary disease. Workstation ID: [id number] [facility] Interface, Rad In Fu ji Speechq - 04/03/2019 9:00 AM EDT EXAMINATION: XR CHEST PA/AP, 04/03/2019 HISTORY: SHORTNESS OF BREATH COMPARISON: Chest, 03/04/2019. FINDINGS: Cardiac size, mediastinal contour and pulmonary vascularity are within normal limits. The lungs are well expanded and clear. IMPRESSION: No acute cardiopulmonary disease. Workstation ID: [id number] [facility] Basic Metab w/rfx MGon 03-04 (cont.) Normal [facility] Comment on above: Result Comment: Aver age GFR for 50-59 years old: 93 mL/min/1.73sq m Chronic Kidney Disease: <60 mL/min/1.73sq m Kidney failure: <15 mL/min/1.73sq m eGFR calculated using average adult body mass. Additional eGFR calculator available at: http://www.[employer]/multiple_crcl_2012.htm Performed By: #### B MPX, BNP, TROPI, TSHX, CDP #### [facility] [address] [place], [place] [id number] [employer]Nd Shift: Todd Foster MD Anion gap [Moles/Vol] 11 mmol/L Normal - [facility] Comment on above: Performed By: #### B MPX, BNP, TROPI, TSHX, CDP #### [facility] [address] [place] [address] [employer] Shift: Todd Foster MD BUN/CRE Ratio 20 Normal - [facility] Comment on above: Performed By: #### B MPX, BNP, TROPI, TSHX, CDP #### [facility] [address] [place] [address] [employer] Shift: Todd Foster MD Calcium [Mass/Vol] 9.4 mg/dL Normal 8.6-10.4 [facility] Comment on above: Performed By: #### B MPX, BNP, TROPI, TSHX, CDP #### [facility] [address] [place], [place] [id number] [employer] Shift: Todd Foster MD Chloride [Moles/Vol] 100 mmol/L Normal 98-107 [facility] Comment on above: Performed By: #### B MPX, BNP, TROPI, TSHX, CDP #### [facility] [address] [place] [address] [employer] Shift: Todd Foster MD CO2 [Moles/Vol] 27 mmol/L Normal 20-31 [facility] Comment on above: Performed By: #### B MPX, BNP, TROPI, TSHX, CDP #### [facility] [address] [place] [address] [employer] Shift: Todd Foster MD Creatinine [Mass/Vol] 0.59 mg/dL Low 0.70-1.20 [facility] Comment on above: Performed By: #### B MPX, BNP, TROPI, TSHX, CDP #### [facility] [address] [place] [address] [employer] Shift: Todd Foster MD GFR, Amer >60 Normal >60 [facility] Comment on above: Performed By: #### B MPX, BNP, TROPI, TSHX, CDP #### [facility] [address] [place] [address] [employer] Shift: Todd Foster MD GFR,non Amer >60 Normal >60 [facility] Comment on above: Performed By: #### B MPX, BNP, TROPI, TSHX, CDP #### [facility] [address] [place] [address] [employer] Shift: Todd Foster MD Glucose [Mass/Vol] 113 mg/dL High 70-99 [facility] Comment on above: Performed By: #### B MPX, BNP, TROPI, TSHX, CDP #### [facility] [address] [place] [address] [employer] Shift: Todd Foster MD Potassium [Moles/Vol] 4.4 mmol/L Normal 3.7-5.3 [facility] Comment on above: Performed By: #### B MPX, BNP, TROPI, TSHX, CDP #### [facility] [address] [place] [address] [employer] Shift: Todd Foster MD Sodium [Moles/Vol] 138 mmol/L Normal 135-144 [facility] Comment on above: Performed By: #### B MPX, BNP, TROPI, TSHX, CDP #### [facility] [address] [place], [place] [id number] [employer] Shift: Todd Foster MD Urea nitrogen [Mass/Vol] 12 mg/dL Normal 6-20 [facility] Comment on above: Performed By: #### B MPX, BNP, TROPI, TSHX, CDP #### [facility] [address] [place] [address] [employer] Shift: Todd Foster MD Staging: NOT REPORTED Normal [facility] Comment on above: Performed By: #### B MPX, BNP, TROPI, TSHX, CDP #### [facility] [address] [place] [address] [employer] Shift: Todd Foster MD Brain Natri. Peptideon 03-04 Natriuretic peptide B (Bld) [Mass/Vol] Pro-BNP Reference Range: Normal [facility] Comment on above: Result Comment: Rule Out: <300 Combs Zone: Age <50 300-450 Age 50-75 300-900 Age >75 300-1800 Usually represents mild to moderate HF but other cardiopulmonary causes cannot be ruled out. Rule In: Age <50 >450 Age 50-75 >900 Age >75 >1800 Performed By: #### B MPX, BNP, TROPI, TSHX, CDP #### [facility] [address] [place], [place] [id number] [employer] Shift: Todd Foster MD Natriuretic peptide B (Bld) [Mass/Vol] 568 pg/mL High <300 [facility] Comment on above: Result Comment: Pro- BNP results cannot be compared to BNP results. Performed By: #### B MPX, BNP, TROPI, TSHX, CDP #### [facility] [address] [place] [address] [employer] Shift: Todd Foster MD CBC with Diffon 03-04-2019 Abs. Basophil Normal 0.0-0.2 [facility] Comment on above: Performed By: #### B MPX, BNP, TROPI, TSHX, CDP #### [facility] [address] [place] [address] [employer] Shift: Todd Foster MD Abs.Neutrophil (Seg) 1.35 k/uL Low 2.1-6.5 [facility] Comment on above: Performed By: #### B MPX, BNP, TROPI, TSHX, CDP #### [facility] [address] [place] [address] [employer] Shift: Todd Foster MD Basophils/100 WBC (Bld) Normal 0-2 [facility] Comment on above: Performed By: #### B MPX, BNP, TROPI, TSHX, CDP #### [facility] [address] [place] [address] [employer] Shift: Todd Foster MD Eosinophils (Bld) [#/Vol] 0.05 10*3/uL Normal 0.0-0.4 [facility] Comment on above: Performed By: #### B MPX, BNP, TROPI, TSHX, CDP #### [facility] [address] [place] [address] [employer] Shift: Todd Foster MD Eosinophils/100 WBC (Bld) 2 % Normal 0-5 [facility] Comment on above: Performed By: #### B MPX, BNP, TROPI, TSHX, CDP #### [facility] [address] [place] [id number] [employer] Shift: Todd Foster MD Lymphocytes (Bld) [#/Vol] 1.08 10*3/uL Normal 1.0-4.8 [facility] Comment on above: Performed By: #### B MPX, BNP, TROPI, TSHX, CDP #### [facility] [address] [place] [address] [employer] Shift: Todd Foster MD Lymphocytes/100 WBC (Bld) 40 % Normal 13-44 [facility] Comment on above: Performed By: #### B MPX, BNP, TROPI, TSHX, CDP #### [facility] [address] [place] [address] [employer] Shift: Todd Foster MD Monocytes (Bld) [#/Vol] 0.22 10*3/uL Normal 0.0-1.0 [facility] Comment on above: Performed By: #### B MPX, BNP, TROPI, TSHX, CDP #### [facility] [address] [place] [address] [employer] Shift: Todd Foster MD Monocytes/100 WBC (Bld) 8 % Normal 5-9 [facility] Comment on above: Performed By: #### B MPX, BNP, TROPI, TSHX, CDP #### [facility] [address] [place] [address] [employer] Shift: Todd Foster MD Morphology Julián (Bld) [Interp] Manual Differential Performed Normal [facility] Comment on above: Performed By: #### B MPX, BNP, TROPI, TSHX, CDP #### [facility] [address] [place] [address] [employer] Shift: Todd Foster MD Neutrophil (Seg) 50 % Normal 39-75 [facility] Comment on above: Performed By: #### B MPX, BNP, TROPI, TSHX, CDP #### [facility] [address] [place] [address] [employer] Shift: Todd Foster MD Total Cells Counted 50 Normal [facility] Comment on above: Performed By: #### B MPX, BNP, TROPI, TSHX, CDP #### [facility] [address] [place] [address] [employer] Handler [employer] Shift: Todd Foster MD Erythrocyte distribution width (RBC) [Ratio] 16.3 % High 12.1-15.2 [facility] Comment on above: Performed By: #### B MPX, BNP, TROPI, TSHX, CDP #### [facility] [address] [place] [address] [employer] Shift: Todd Foster MD Hematocrit (Bld) [Volume fraction] 34.7 % Low 41-53 [facility] Comment on above: Performed By: #### B MPX, BNP, TROPI, TSHX, CDP #### [facility] [address] [place] [address] [employer] Shift: Todd Foster MD Hemoglobin (Bld) [Mass/Vol] 11.1 g/dL Low 13.5-17.5 [facility] Comment on above: Performed By: #### B MPX, BNP, TROPI, TSHX, CDP #### [facility] [address] [place] [address] [employer] Handler [employer] Shift: Todd Foster MD MCH (RBC) [Entitic mass] 23.3 pg Low 26-34 [facility] Comment on above: Performed By: #### B MPX, BNP, TROPI, TSHX, CDP #### [facility] [address] [place] [address] [employer] Handler [employer] Shift: Todd Foster MD MCHC (RBC) [Mass/Vol] 32.1 g/dL Normal 31-37 [facility] Comment on above: Performed By: #### B MPX, BNP, TROPI, TSHX, CDP #### [facility] [address] [place] [address] [employer] Handler [employer] Shift: Todd Foster MD MCV (RBC) [Entitic vol] 72.5 fL Low 80-100 [facility] Comment on above: Performed By: #### B MPX, BNP, TROPI, TSHX, CDP #### [facility] [address] [place] [address] [employer] Handler [employer] Shift: Todd Foster MD Platelets (Bld) [#/Vol] 127 10*3/uL Low 140-450 [facility] Comment on above: Performed By: #### B MPX, BNP, TROPI, TSHX, CDP #### [facility] [address] [place] [address] [employer] Handler [employer] Shift: Todd Foster MD RBC (Bld) [#/Vol] 4.79 10*6/uL Normal 4.5-5.9 [facility] Comment on above: Performed By: #### B MPX, BNP, TROPI, TSHX, CDP #### [facility] [address] [place] [address] [employer] Handler 2Nd Shift: Todd Foster MD WBC (Bld) [#/Vol] 2.7 10*3/uL Critically low 3.5-11.0 [facility] Comment on above: Performed By: #### B MPX, BNP, TROPI, TSHX, CDP #### [facility] [address] [place] [address] [employer] Handler 2Nd Shift: Todd Foster MD Abs.Imm.Granulocyte NOT REPORTED Normal 0.00-0.[address] [facility] Comment on above: Performed By: #### B MPX, BNP, TROPI, TSHX, CDP #### [facility] [address] [place] [address] [employer] Handler 2[employer] Shift: Todd Foster MD Auto Diff Performed NOT REPORTED Normal [facility] Comment on above: Performed By: #### B MPX, BNP, TROPI, TSHX, CDP #### [facility] [address] [place] [address] [employer] Handler [employer]Nd Shift: Todd Foster MD Immature granulocytes (Bld) [#/Vol] NOT REPORTED Normal 0 [facility] Comment on above: Performed By: #### B MPX, BNP, TROPI, TSHX, CDP #### [facility] [address] [place] [address] [employer] Handler [employer]Nd Shift: Todd Foster MD NRBC Automated NOT REPORTED Normal [facility] Comment on above: Performed By: #### B MPX, BNP, TROPI, TSHX, CDP #### [facility] [address] [place] [address] [employer] Handler [employer] Shift: Todd Foster MD Platelet mean volume (Bld) [Entitic vol] NOT REPORTED Normal 6.0-12.0 [facility] Comment on above: Performed By: #### B MPX, BNP, TROPI, TSHX, CDP #### [facility] [address] [place] [address] [employer] Handler [employer] Shift: Todd Foster MD Platelets (Bld) [#/Vol] NOT REPORTED Normal [facility] Comment on above: Performed By: #### B MPX, BNP, TROPI, TSHX, CDP #### [facility] [address] [place] [address] [employer] Handler [employer] Shift: Todd Foster MD RBC morphology finding Nom (Bld) NOT REPORTED Normal [facility] Comment on above: Performed By: #### B MPX, BNP, TROPI, TSHX, CDP #### [facility] [address] [place] [address] [employer] Handler 2Nd Shift: Todd Foster MD WBC Morphology NOT REPORTED Normal [facility] Comment on above: Performed By: #### B MPX, BNP, TROPI, TSHX, CDP #### [facility] [address] [place] [address] [employer] Handler [employer]Nd Shift: Todd Foster MD TSH w/reflex to FT4on 2018 TSH Qn 4.13 m[IU]/L Normal 0.30-5.00 [facility] Comment on above: Performed By: #### B MPX, BNP, TROPI, TSHX, CDP #### [facility] [address] [place] [address] [employer] Handler [employer] Shift: Todd Foster MD Troponinon 03-04-2019 Troponin I.cardiac [Mass/Vol] ng/mL Normal <0.03 [facility] Comment on above: Result Comment: Trop onin T results cannot be compared to Troponin-I results. Performed By: #### B MPX, BNP, TROPI, TSHX, CDP #### [facility] [address] [place] [address] [employer] Handler [employer]Nd Shift: Todd Foster MD Troponin I.cardiac [Mass/Vol] Normal [facility] Comment on above: Result Comment: Refe [...] B MPX, BNP, TROPI, TSHX, CDP #### [facility] [address] [place] [address] [employer] Handler 2Nd Shift: Todd Foster MD Troponin I.cardiac [Mass/Vol] NOT REPORTED Normal 0-22 [facility] Comment on above: Performed By: #### B MPX, BNP, TROPI, TSHX, CDP #### [facility] [address] [place] [address] [employer] Handler [employer]Nd Shift: Todd Foster MD XR CHEST PORTABLEon 03-04-20 19 XR CHEST PORTABLE CHEST X-RAY, 1 VIEW HISTORY: Shortness of breath. COMPARISON: 02/03/2019. FINDINGS: The heart, robert, and mediastinum are unremarkable. The lungs are grossly clear. There are no pleural effusions. There is no pneumothorax. IMPRESSION: No evidence of acute cardiopulmonary disease. Interpreted by: Thomas Christensen MD Signed by: Thomas Christensen MD 03/04/19 Final result Normal [facility] CBC with Diffon 02-03-2019 Abs. Basophil 0.00 k/uL Normal 0.0-0.2 [facility] Comment on above: Performed By: #### C DP, CP #### [facility] [address] [place] [id number] [employer] Handler [employer] Shift: Todd Foster MD Abs.Neutrophil (Seg) 1.60 k/uL Low 2.1-6.5 [facility] Comment on above: Performed By: #### C DP, CP #### [facility] [address] [place] [address] [employer] Handler 2Nd Shift: Todd Foster MD Basophils/100 WBC (Bld) 1 % Normal 0-2 [facility] Comment on above: Performed By: #### C DP, CP #### [facility] [address] [place], [place] [id number] [employer] Handler [employer]Nd Shift: Todd Foster MD Eosinophils (Bld) [#/Vol] 0.00 10*3/uL Normal 0.0-0.4 [facility] Comment on above: Performed By: #### C DP, CP #### [facility] [address] [place] [address] [employer] Handler [employer]Nd Shift: Todd Foster MD Eosinophils/100 WBC (Bld) 2 % Normal 0-5 [facility] Comment on above: Performed By: #### C DP, CP #### [facility] [address] [place], [place] [id number] [employer] Handler [employer]Nd Shift: Todd Foster MD Erythrocyte distribution width (RBC) [Ratio] 16.6 % High 12.1-15.2 [facility] Comment on above: Performed By: #### C DP, CP #### [facility] [address] [place] [address] [employer] Handler [employer]Nd Shift: Todd Foster MD Hematocrit (Bld) [Volume fraction] 33.5 % Low 41-53 [facility] Comment on above: Performed By: #### C DP, CP #### [facility] [address] [place] [id number] [employer] Handler [employer]Nd Shift: Todd Foster MD Hemoglobin (Bld) [Mass/Vol] 10.6 g/dL Low 13.5-17.5 [facility] Comment on above: Performed By: #### C DP, CP #### [facility] [address] [place] [id number] [employer] Handler [employer]Nd Shift: Todd Foster MD Lymphocytes (Bld) [#/Vol] 0.70 10*3/uL Low 1.0-4.8 [facility] Comment on above: Performed By: #### C DP, CP #### [facility] [address] [place] [address] [employer] Handler [employer]Nd Shift: Todd Foster MD Lymphocytes/100 WBC (Bld) 27 % Normal 13-44 [facility] Comment on above: Performed By: #### C DP, CP #### [facility] [address] [place] [address] [employer] Handler [employer]Nd Shift: Todd Foster MD MCH (RBC) [Entitic mass] 23.1 pg Low 26-34 [facility] Comment on above: Performed By: #### C DP, CP #### [facility] [address] [place] [address] [employer] Handler [employer]Nd Shift: Todd Foster MD MCHC (RBC) [Mass/Vol] 31.7 g/dL Normal 31-37 [facility] Comment on above: Performed By: #### C DP, CP #### [facility] [address] [place] [address] [employer] Handler 2Nd Shift: Todd Foster MD MCV (RBC) [Entitic vol] 73.0 fL Low 80-100 [facility] Comment on above: Performed By: #### C DP, CP #### [facility] [address] [place] [address] Material Handler 2Nd Shift: Todd Foster MD Monocytes (Bld) [#/Vol] 0.30 10*3/uL Normal 0.0-1.0 [facility] Comment on above: Performed By: #### C DP, CP #### [facility] [address] [place] [address] Material Handler 2Nd Shift: Todd Foster MD Monocytes/100 WBC (Bld) 10 % High 5-9 [facility] Comment on above: Performed By: #### C DP, CP #### [facility] [address] [place] [id number] Material Handler 2Nd Shift: Todd Foster MD Neutrophil (Seg) 60 % Normal 39-75 [facility] Comment on above: Performed By: #### C DP, CP #### [facility] [address] [place] [address] Material Handler 2Nd Shift: Todd Foster MD Platelets (Bld) [#/Vol] 106 10*3/uL Low 140-450 [facility] Comment on above: Performed By: #### C DP, CP #### [facility] [address] [place] [address] Material Handler 2Nd Shift: Todd Foster MD RBC (Bld) [#/Vol] 4.59 10*6/uL Normal 4.5-5.9 [facility] Comment on above: Performed By: #### C DP, CP #### [facility] [address] [place] [address] Material Handler 2Nd Shift: Todd Foster MD WBC (Bld) [#/Vol] 2.6 10*3/uL Critically low 3.5-11.0 [facility] Comment on above: Performed By: #### C DP, CP #### [facility] [address] [place] [address] Material Handler 2Nd Shift: Todd Foster MD Abs.Imm.Granulocyte NOT REPORTED Normal 0.00-0.[address] [facility] Comment on above: Performed By: #### C DP, CP #### [facility] [address] [place] [address] Material Handler 2Nd Shift: Todd Foster MD Auto Diff Performed NOT REPORTED Normal [facility] Comment on above: Performed By: #### C DP, CP #### [facility] [address] [place] [address] Material Handler 2Nd Shift: Todd Foster MD Immature granulocytes (Bld) [#/Vol] NOT REPORTED Normal 0 [facility] Comment on above: Performed By: #### C DP, CP #### [facility] [address] [place] [address] Material Handler 2Nd Shift: Todd Foster MD NRBC Automated NOT REPORTED Normal [facility] Comment on above: Performed By: #### C DP, CP #### [facility] [address] [place] [address] Material Handler 2Nd Shift: Todd Foster MD Platelet mean volume (Bld) [Entitic vol] NOT REPORTED Normal 6.0-12.0 [facility] Comment on above: Performed By: #### C DP, CP #### [facility] [address] [place] [address] Material Handler 2Nd Shift: Todd Foster MD Platelets (Bld) [#/Vol] NOT REPORTED Normal [facility] Comment on above: Performed By: #### C DP, CP #### [facility] [address] [place] [address] Material Handler 2Nd Shift: Todd Foster MD RBC morphology finding Nom (Bld) NOT REPORTED Normal [facility] Comment on above: Performed By: #### C DP, CP #### [facility] [address] [place] [address] Material Handler 2Nd Shift: Todd Foster MD WBC Morphology NOT REPORTED Normal [facility] Comment on above: Performed By: #### C DP, CP #### [facility] [address] [place] [address] Material Handler 2Nd Shift: Todd Foster MD Comp Metabolic Profon 2018 (cont.) Normal [facility] Comment on above: Result Comment: Aver age GFR for 50-59 years old: 93 mL/min/1.73sq m Chronic Kidney Disease: <60 mL/min/1.73sq m Kidney failure: <15 mL/min/1.73sq m eGFR calculated using average adult body mass. Additional eGFR calculator available at: http://www.[employer]/multiple_crcl_2011.htm Performed By: #### C DP, CP #### [facility] [address] [place] [address] Material Handler 2Nd Shift: Todd Foster MD Albumin [Mass/Vol] 4.1 g/dL Normal 3.5-5.2 [facility] Comment on above: Performed By: #### C DP, CP #### [facility] [address] [place] [address] Material Handler 2Nd Shift: Todd Foster MD Alkaline Phos 90 U/L Normal 40-129 [facility] Comment on above: Performed By: #### C DP, CP #### [facility] [address] [place] [address] Material Handler 2Nd Shift: Todd Foster MD ALT [Catalytic activity/Vol] 28 U/L Normal 5-41 [facility] Comment on above: Performed By: #### C DP, CP #### [facility] [address] [place] [address] Material Handler 2Nd Shift: Todd Foster MD Anion gap [Moles/Vol] 12 mmol/L Normal 9-17 [facility] Comment on above: Performed By: #### C DP, CP #### [facility] [address] [place] [address] Material Handler 2Nd Shift: Todd Foster MD AST [Catalytic activity/Vol] 30 U/L Normal <40 [facility] Comment on above: Performed By: #### C DP, CP #### [facility] [address] [place], [place] [id number] Material Handler 2Nd Shift: Todd Foster MD Bilirubin Ql (U) 0.85 mg/dL Normal 0.30-1.20 [facility] Comment on above: Performed By: #### C DP, CP #### [facility] [address] [place] [address] Material Handler 2Nd Shift: Todd Foster MD BUN/CRE Ratio 27 High 9-20 [facility] Comment on above: Performed By: #### C DP, CP #### [facility] [address] [place] [address] Material Handler 2Nd Shift: Todd Foster MD Calcium [Mass/Vol] 9.2 mg/dL Normal 8.6-10.4 [facility] Comment on above: Performed By: #### C DP, CP #### [facility] [address] [place] [address] Material Handler 2Nd Shift: Todd Foster MD Chloride [Moles/Vol] 99 mmol/L Normal 98-107 [facility] Comment on above: Performed By: #### C DP, CP #### [facility] [address] [place] [address] Material Handler 2Nd Shift: Todd Foster MD CO2 [Moles/Vol] 26 mmol/L Normal 20-31 [facility] Comment on above: Performed By: #### C DP, CP #### [facility] [address] [place] [address] Material Handler 2Nd Shift: Todd Foster MD Creatinine [Mass/Vol] 0.49 mg/dL Low 0.70-1.20 [facility] Comment on above: Performed By: #### C DP, CP #### [facility] [address] [place] [address] Material Handler 2Nd Shift: Todd Foster MD GFR, Amer >60 Normal >60 [facility] Comment on above: Performed By: #### C DP, CP #### [facility] [address] [place] [address] Material Handler 2Nd Shift: Todd Foster MD GFR,non Amer >60 Normal >60 [facility] Comment on above: Performed By: #### C DP, CP #### [facility] [address] [place] [address] Material Handler 2Nd Shift: Todd Foster MD Glucose [Mass/Vol] 130 mg/dL High 70-99 [facility] Comment on above: Performed By: #### C DP, CP #### [facility] [address] [place] [address] Material Handler 2Nd Shift: Todd Foster MD Potassium [Moles/Vol] 3.9 mmol/L Normal 3.7-5.3 [facility] Comment on above: Performed By: #### C DP, CP #### [facility] [address] [place] [address] Material Handler 2Nd Shift: Todd Foster MD Protein [Mass/Vol] 7.8 g/dL Normal 6.4-8.3 [facility] Comment on above: Performed By: #### C DP, CP #### [facility] [address] [place] [address] Material Handler 2Nd Shift: Todd Foster MD Sodium [Moles/Vol] 137 mmol/L Normal 135-144 [facility] Comment on above: Performed By: #### C DP, CP #### [facility] [address] [place] [address] Material Handler 2Nd Shift: Todd Foster MD Urea nitrogen [Mass/Vol] 13 mg/dL Normal 6-20 [facility] Comment on above: Performed By: #### C DP, CP #### [facility] [address] [place] [address] Material Handler 2Nd Shift: Todd Foster MD Albumin/Globulin [Mass ratio] NOT REPORTED Normal 1.0-2.5 [facility] Comment on above: Performed By: #### C DP, CP #### [facility] [address] [place] [address] Material Handler 2Nd Shift: Todd Foster MD Staging: NOT REPORTED Normal [facility] Comment on above: Performed By: #### C DP, CP #### [facility] [address] [place] [address] Material Handler 2Nd Shift: Todd Foster MD XR CHEST (2 VW)on [...] Kanika Terry DO 02/03/19 Final result Normal [facility] XR Knee Right 2 Views [...] no acute changes. Invalid Interpretation Code [facility] 06-03-2018 [facility] Drug Testing See EMR Normal [facility] Comment on above: Result Comment: Scan daryl report from [facility] ([address] [address], [place], [place])can be found in the [place] EMR ([facility]) system. Performed By: #### M DIANELYS ####Unless otherwise noted, all testing performed by [facility], [place] [phone]: [id number] Director: Jack Mendoza M.D. FOOTon 05-15-2018 FOOT Final ReportAccession No: [id number] Performed: May 15 2018 3:20PMExamination: LEFT [...] Physician: JONATHAN BELTRAN M.D.Trans: n/a : cc: Normal [facility] KNEES BILAT STANDING 1 VIEW ONLYon 09-24-2018 KNEES BILAT STANDING 1 VIEW ONLY Final ReportAccession No: [id number] Performed: May 15 2018 3:20PMExamination: KNEES [...] Physician: JONATHAN BELTRAN M.D.Trans: n/a : cc: Normal [facility] Drug Testi [facility] 05-12-2018 [facility] Drug Testing See EMR Normal [facility] Comment on above: Result Comment: [facility] [address] [facility] [place])can be found in the [place] [facility] [employer]) system. Performed By: #### M JIMMYN ####Unless otherwise noted, all testing performed by [place] [address] [address] [facility], [place] [phone]: [id number] Director: Jack Mendoza M.D. [facility] 05-06-2018 [facility] Drug Testing See EMR [facility] Comment on above: Result Comment: Scan daryl report from [employer] ([id number] [address] [place]can be found in the [place] [facility]) system. Performed By: #### M LMILLEN ####Unless otherwise noted, all testing performed by [facility], [place] [phone]: [id number] Director: Jack Mendoza M.D. CT LOWER EXT W/O CONTRASTon 04-20-2018 CT LOWER EXT W/O CONTRAST Final ReportAccession No: [id number] Performed: Apr 20 2018 4:26PMExamination: RIGHT [...] SOFÍA MAIN D.O.Trans: sfalk : cc: Normal [facility] Drug Testi ngon 04-08-2018 [facility] Drug Testing See EMR Normal [facility] Comment on above: Result Comment: Scan daryl report from [facility] ([address] [address], [place], [place])can be found in the [place] EMR ([facility]) system. Performed By: #### M LMILLEN ####Unless otherwise noted, all testing performed by [place] [address] [address], [place] [phone]: [id number] Director: Jack Mendoza M.D. ANKLE 2 VIEWSon 03-31-2018 ANKLE 2 VIEWS Final ReportAccession No: [id number] Performed: Mar 31 2018 10:50AMExamination: RIGHT ANKLE 2 VIEWSEXAM TYPE: ANKLE 2 VIEWS RIGHTEXAM DATE AND TIME: 03/31/2018 10:50 AM EDTINDICATION: 52-year-old male with chronic pain.COMPARISON: None.TECHNIQUE: 2 views of the right ankle.FINDINGS: No acute fracture. Joints and ankle mortise are anatomicallyaligned.Soft tissues appear unremarkable.IMPRESSION:No acute fracture or traumatic malalignment.Interpreting Physician: KHADAR BETH D.O.Trans: dcarr : cc: [facility] FOOTon 03-31-2018 FOOT Final ReportAccession No: [id number] Performed: Mar 31 2018 10:50AMExamination: RIGHT [...] KHADAR BETH D.O.Trans: dcarr : cc: Normal [facility] Drug Testi ngon 03-11-2018 [facility] Drug Testing See EMR Normal [facility] Comment on above: Result Comment: Scan daryl report from [facility] ([address] [address], [place], [place])can be found in the [place] E[facility] ([facility]) system. Performed By: #### M LMILLEN ####Unless otherwise noted, all testing performed by [address] [phone]: [id number] Director: Jack Mendoza M.D. CCP Antibodieson 03-08-2018 CCP Antibodies 135.8 Unit High 0.0-20.0 [facility] Comment on above: Result Comment: Refe rence Ranges:<20Units Eprpgaqo08-18Toeek Weakly Ugvhmaih92-22Jwlbn Moderative Positive>=60Units Strong PositiveTest Performed by [facility] [address] [place] [address] Performed By: #### C RPQT, URIC, SEDR, CCPAB ####Unless otherwise noted, all testing performed by [address] [phone]: [id number] Director: Jack Mendoza M.D. CRP, C-Reactive Proteinon Protein mass conc 5.0 mg/L Normal 0.0-10.0 [facility] Comment on above: Performed By: #### C RPQT, URIC, SEDR, CCPAB ####Unless otherwise noted, all testing performed by [address] [phone]: [id number] Director: Jack Mendoza M.D. Rheumatoid Factoron 03-08-20 18 Rheumatoid Factor Positive Abnormal Negative [facility] Comment on above: Performed By: #### R F ####Unless otherwise noted, all testing performed by [address] [phone]: [id number] Director: Jack Mendoza M.D. Rheumatoid Factor Titer 1:32 Normal [facility] Comment on above: Performed By: #### R F ####Unless otherwise noted, all testing performed by [address] [phone]: [id number] Director: Jack Mendoza M.D. Sed Rateon 03-08-2018 Sed Rate 38 MM/hr. High 0-15 [facility] Comment on above: Performed By: #### C RPQT, URIC, SEDR, CCPAB ####Unless otherwise noted, all testing performed by [address] [phone]: [id number] Director: Jack Mendoza M.D. Uric Acidon 03-08-2018 Urate mass conc 6.2 mg/dL Normal 3.4-8.5 [facility] Comment on above: Performed By: #### C RPQT, URIC, SEDR, CCPAB ####Unless otherwise noted, all testing performed by [facility], [place] [phone]: [id number] Director: Jack Mendoza M.D. ANKLEon 03-07-2018 ANKLE Final ReportAccession No: [id number] Performed: Mar 07 2018 3:34PMExamination: RIGHT [...] arthropathy.Questionable small amount of joint effusion.Interpreting Physician: AKTE DUEÑAS M.D.Trans: lwolfe : cc: Normal [facility] FOOTon 03-07-2018 FOOT Final ReportAccession No: [id number] Performed: Mar 07 2018 3:34PMExamination: RIGHT [...] or stress fracture.Interpreting Physician: KJ VERA M.D.Trans: [id number] : cc: [facility] HIPon 03-07-2018 HIP Final ReportAccession No: [id number] Performed: Mar 07 2018 3:34PMExamination: RIGHT [...] Physician: KATE DUEÑAS M.D.Trans: n/a : cc: [facility] KNEE W/PATELLAon 03-07-2018 KNEE W/PATELLA Final ReportAccession No: [id number] Performed: Mar 07 2018 3:34PMExamination: RIGHT [...] Mild tomoderatetricompartmental osteoarthritis.Interpreting Physician: JOVITA LIRA M.D.Trans: [id number] : cc: [facility] 02-11-2018 [facility] See [facility] Normal [facility] Comment on above: Result Comment: Scan daryl report from [facility] ([address] [address] [place])can be found in the [place] E[facility] ([facility]) system. Performed By: #### M LMILLEN ####Unless otherwise noted, all testing performed by [place] [address], [place] [phone]: [id number] Director: Jack Mendoza M.D. [facility] Drug Testi [facility] 01-14-2018 [facility] Drug Testing See EMR Normal [facility] Comment on above: Result Comment: Scan daryl report from [facility] ([address] [address] [place], [place])can be found in the [place] E[facility] ([facility]) system. Performed By: #### M LMILLEN ####Unless otherwise noted, all testing performed by [place] [address] [address] [facility].[place], [place] [phone]: [id number] Director: Jack Mendoza M.D. [facility] Drug Testi [facility] 12-30-2017 [facility] Drug Testing See EMR Normal [facility] Comment on above: Result Comment: Scan daryl report from [facility] ([address] [address] [facility] [place])can be found in the [place] [facility] ([facility]) system. Performed By: #### M LMILLEN ####Unless otherwise noted, all testing performed by [place] [address] [address] [facility].[place], [place] [phone]: [id number] Director: Jack Mendoza M.D. CT SPINE CERVICAL W/O CONTRA Arash 08-06-2017 CT SPINE CERVICAL W/O CONTRAST Final ReportAccession No: [id number] Performed: Aug 06 2017 6:52PMExamination: CT [...] Mild degenerative changes of the cervical spine withoutfractures.Bentley Gil, MATHEUSW/SVETAElectronically Signed by and VerifiedDate Report Signed: 08/07/2017 12:48:25 AMInterpreting Physician: ALEX,Trans: [id number] : cc: Normal [facility] SHOULDER 2 OR MORE VIEWSon 1 10-07-2016 SHOULDER 2 OR MORE VIEWS Final ReportAccession No: [id number] Performed: Aug 06 2017 6:36PMExamination: LEFT [...] Physician: PETROS GOLDBERG D.O.Trans: : cc: Normal [facility] CBC and Differentialon 05-05 Basophils 0.0 K/mcL Invalid Interpretation Code 0 - 0.2 [facility] Basophils 0.3 % Invalid Interpretation Code [facility] Eosinophils 0.1 K/mcL Invalid Interpretation Code 0 - 0.5 [facility] Erythrocytes (RBC) 5.02 M/mcL Invalid Interpretation Code 4.0 - 5.5 [facility] Hematocrit (HCT) 36.9 % Low 37.9 - 49.2 % [facility] Hemoglobin (HGB) 11.6 g/dL Low 12.9 - 16.9 g/dL [facility] Interpretation and review of laboratory results Abnormal Invalid Interpretation Code [facility] Lymphocytes 1.3 K/mcL Invalid Interpretation Code 0.9 - 3.6 [facility] MCH 23.1 pg Low 27.7 - 34.6 pg [facility] MCHC 31.4 g/dL Low 32.9 - 35.5 g/dL [facility] MCV 73.5 fL Low 82.8 - 99.3 [facility] Monocytes 0.5 K/mcL Invalid Interpretation Code 0.2 - 0.6 [facility] Neutrophils 3.1 K/mcL Invalid Interpretation Code 1.4 - 6.8 [facility] Platelet mean volume (PMV) 8.1 fL Invalid Interpretation Code 6.6 - 10.8 [facility] Platelets 122 K/mcL Low 139 - 354 [facility] RDW-CA 15.6 % High 10 - 14.3 % [facility] Segmented Neut 62.5 % Invalid Interpretation Code [facility] T8 suppressor/100 cells 1.1 10*3/uL Invalid Interpretation Code [facility] T8 suppressor/100 cells 26.9 10*3/uL Invalid Interpretation Code [facility] T8 suppressor/100 cells 9.2 10*3/uL Invalid Interpretation Code [facility] WBC (Leukocytes) 5.0 K/mcL Invalid Interpretation Code 3.6 - 10.4 [facility] CRP, C-Reactive Proteinon CRP - Inflammation < 2.9 Invalid Interpretation Code 0 - 10 mg/L [facility] Comprehensive Metabolic Pane ras 05-05-2017 Alanine aminotransferase (ALT) 44 U/L Invalid Interpretation Code 14 - 65 U/L [facility] Albumin 3.4 g/dL Invalid Interpretation Code 3.2 - 5.2 g/dL [facility] Alkaline phosphatase (ALP) 87 U/L Invalid Interpretation Code 40 - 150 U/L [facility] Aspartate aminotransferase (AST) 38 U/L Invalid Interpretation Code 0 - 45 U/L [facility] Calcium 8.5 mg/dL Invalid Interpretation Code 8.4 - 10.2 mg/dL [facility] Chloride 103 mmol/L Invalid Interpretation Code 98 - 108 mmol/L [facility] CO2 25 mmol/L Invalid Interpretation Code 21 - 32 mmol/L [facility] Creatinine 0.68 mg/dL Invalid Interpretation Code 0.5 - 1.3 mg/dL [facility] eGFR (black) mL/min/{1.73_m2} Invalid Interpretation Code ml/min/1.73s q.m [facility] eGFR (non-black) mL/min/{1.73_m2} Invalid Interpretation Code ml/min/1.73s q.m [facility] Glucose 102 mg/dL High 70 - 99 mg/dL [facility] Potassium 3.9 mmol/L Invalid Interpretation Code 3.5 - 5.1 mmol/L [facility] Protein 8.5 g/dL High 6 - 8 g/dL [facility] Sodium 138 mmol/L Invalid Interpretation Code 135 - 145 mmol/L [facility] Urea nitrogen 18 mg/dL Invalid Interpretation Code 8 - 25 mg/dL [facility] Urine, bilirubin presence 1.2 mg/dL Invalid Interpretation Code 0.3 - 1.2 mg/dL [facility] Hemoglobin A1con 05-05-2017 HbA1c 4.9 % Invalid Interpretation Code 4.1 - 6.5 % [facility] Sedimentation Rateon 017 Sed Rate 21 MM/hr. High 0 - 15 [facility] TSHon 05-05-2017 Thyroid stimulating hormone (TSH) 3.07 uIU/mL Invalid Interpretation Code 0.320 - 5.000 [facility] Uric Acidon 05-05-2017 Urate 5.1 mg/dL Invalid Interpretation Code 3.4 - 8.5 mg/dL [facility] Vital Signs Date Time Vital Sign Value Performing Clinician Facility 05-30-2025 15:08-0400 Body height 182.9 cm Sofía Dukes MD Work Phone: [facility] 05-30-2025 15:08-0400 Body mass index (BMI) [Ratio] 37.43 kg/m2 Sofía Dukes MD Work Phone: [facility] 05-30-2025 15:08-0400 Body weight 125.19 kg Sofía Dukes MD Work Phone: [facility] 05-16-2025 13:36-0400 Respiratory rate 16 /min Carolyn Jalloh MD Work Phone: [facility] 05-16-2025 12:21-0400 Body temperature 97.7 [degF] Carolyn Jalloh MD Work Phone: [facility] 05-16-2025 12:21-0400 Diastolic blood pressure 87 mm[Hg] Carolyn Jalloh MD Work Phone: [facility] 05-16-2025 12:21-0400 Heart rate 76 /min Carolyn Jalloh MD Work Phone: [facility] 05-16-2025 12:21-0400 SaO2% (BldA) [Mass fraction] 98 % Carolyn Jalloh MD Work Phone: [facility] 05-16-2025 12:21-0400 Systolic blood pressure 159 mm[Hg] Carolyn Jalloh MD Work Phone: [facility] 05-12-2025 14:07-0400 Body height 182.9 cm Carolyn Jalloh MD Work Phone: [facility] 05-12-2025 14:07-0400 Body mass index (BMI) [Ratio] 37.52 kg/m2 Carolyn Jalloh MD Work Phone: [facility] 05-12-2025 14:07-0400 Body weight 125.5 kg Carolyn Jalloh MD Work Phone: [facility] 05-09-2025 14:07-0400 Body height 182.9 cm Daniel Hammer MD Work Phone: [facility] 05-09-2025 14:07-0400 Body mass index (BMI) [Ratio] 35.94 kg/m2 Daniel Hammer MD Work Phone: [facility] 05-09-2025 14:07-0400 Body weight 120.2 kg Daniel Hammer MD Work Phone: [facility] 04-05-2025 09:33-0400 Respiratory rate 18 /min Kanchan Jacobs MD Work Phone: [facility] 04-05-2025 07:52-0400 Body temperature 98.01 [degF] Kanchan Jacobs MD Work Phone: [facility] 04-05-2025 07:52-0400 Diastolic blood pressure 63 mm[Hg] Kanchan Jacobs MD Work Phone: [facility] 04-05-2025 07:52-0400 Heart rate 78 /min Kanchan Jacobs MD Work Phone: [facility] 04-05-2025 07:52-0400 SaO2% (BldA) [Mass fraction] 99 % Kanchan Jacobs MD Work Phone: [facility] 04-05-2025 07:52-0400 Systolic blood pressure 100 mm[Hg] Kanchan Jacobs MD Work Phone: [facility] 04-04-2025 23:47-0400 SaO2% (BldA) [Mass fraction] 98.4 % Kanchan Jacobs MD Work Phone: [facility] 04-02-2025 12:15-0400 Body height 182.9 cm Kanchan Jacobs MD Work Phone: [facility] 04-02-2025 12:15-0400 Body mass index (BMI) [Ratio] 40.69 kg/m2 Kanchan Jacobs MD Work Phone: [facility] 04-02-2025 12:15-0400 Body weight 136.08 kg Kanchan Jacobs MD Work Phone: [facility] 01-04-2025 14:00-0400 Body temperature 97.9 [degF] Cecilia Akron DPM Work Phone: [facility] 01-04-2025 14:00-0400 Diastolic blood pressure 78 mm[Hg] Cecilia Janet DPM Work Phone: [facility] 01-04-2025 14:00-0400 Heart rate 87 /min Cecilia Akron DPM Work Phone: [facility] 01-04-2025 14:00-0400 Respiratory rate 16 /min Cecilia Akron DPM Work Phone: [facility] 01-04-2025 14:00-0400 SaO2% (BldA) [Mass fraction] 90 % Cecilia Akron DPM Work Phone: [facility] 01-04-2025 14:00-0400 Systolic blood pressure 122 mm[Hg] Cecilia Akron DPM Work Phone: [facility] 01-02-2025 14:26-0400 Diastolic blood pressure 72 mm[Hg] W. Craske III, DO Work Phone: [facility] 01-02-2025 14:26-0400 Heart rate 87 /min W. Craske III, DO Work Phone: [facility] 01-02-2025 14:26-0400 Systolic blood pressure 109 mm[Hg] W. Craske III, DO Work Phone: [facility] 01-02-2025 14:07-0400 Body height 182.9 cm W. Kristiske III, DO Work Phone: [facility] 01-02-2025 14:07-0400 Body mass index (BMI) [Ratio] 39.47 kg/m2 W. Craske III, DO Work Phone: [facility] 01-02-2025 14:07-0400 Body weight 132 kg W. Kristiske III, DO Work Phone: [facility] 01-02-2025 14:07-0400 SaO2% (BldA) [Mass fraction] 92 % Luis Daniel Cao III, DO Work Phone: [facility] 12-21-2024 13:17-0400 Body temperature 97 [degF] Cecilia Akron DPM Work Phone: [facility] 12-21-2024 13:17-0400 Diastolic blood pressure 88 mm[Hg] Cecilia Janet DPM Work Phone: [facility] 12-21-2024 13:17-0400 Heart rate 90 /min Cecilia Janet DPM Work Phone: [facility] 12-21-2024 13:17-0400 Respiratory rate 16 /min Cecilia Janet DPM Work Phone: [facility] 12-21-2024 13:17-0400 SaO2% (BldA) [Mass fraction] 95 % Cecilia Akron DPM Work Phone: [facility] 12-21-2024 13:17-0400 Systolic blood pressure 137 mm[Hg] Cecilia Janet DPM Work Phone: [facility] 11-23-2024 14:00-0400 Body temperature 97.39 [degF] Cecilia Akron DPM Work Phone: [facility] 11-23-2024 14:00-0400 Diastolic blood pressure 86 mm[Hg] Cecilia Akron DPM Work Phone: [facility] 11-23-2024 14:00-0400 Heart rate 91 /min Cecilia Akron DPM Work Phone: [facility] 11-23-2024 14:00-0400 Respiratory rate 16 /min Cecilia Janet DPM Work Phone: [facility] 11-23-2024 14:00-0400 SaO2% (BldA) [Mass fraction] 91 % Cecilia Akron DPM Work Phone: [facility] 11-23-2024 14:00-0400 Systolic blood pressure 145 mm[Hg] Cecilia Lindar DPM Work Phone: [facility] 10-24-2024 09:21-0500 Respiratory rate 16 /min Cameron Vargas MD Work Phone: [facility] 10-24-2024 08:09-0500 Body temperature 97.9 [degF] Cameron Vargas MD Work Phone: [facility] 10-24-2024 08:09-0500 Diastolic blood pressure 76 mm[Hg] Cameron Vargas MD Work Phone: [facility] 10-24-2024 08:09-0500 Heart rate 87 /min Cameron Vargas MD Work Phone: [facility] 10-24-2024 08:09-0500 SaO2% (BldA) [Mass fraction] 87 % Cameron Vargas MD Work Phone: [facility] 10-24-2024 08:09-0500 Systolic blood pressure 122 mm[Hg] Cameron Vargas MD Work Phone: [facility] 10-23-2024 05:00-0500 Body mass index (BMI) [Ratio] 42.1 kg/m2 Cameron Vargas MD Work Phone: [facility] 10-23-2024 05:00-0500 Body weight 140.8 kg Cameron Vargas MD Work Phone: [facility] 10-20-2024 10:21-0500 Body height 182.9 cm Cameron Vargas MD Work Phone: [facility] 07-05-2024 10:44-0500 Respiratory rate 18 /min Cameron Vargas MD Work Phone: [facility] 07-05-2024 09:42-0500 Body temperature 98.4 [degF] Cameron Vargas MD Work Phone: [facility] 07-05-2024 09:42-0500 Diastolic blood pressure 79 mm[Hg] Cameron Vargas MD Work Phone: [facility] 07-05-2024 09:42-0500 Heart rate 80 /min Cameron Vargas MD Work Phone: [facility] 07-05-2024 09:42-0500 SaO2% (BldA) [Mass fraction] 95 % Cameron Vargas MD Work Phone: [facility] 07-05-2024 09:42-0500 Systolic blood pressure 123 mm[Hg] Cameron Vargas MD Work Phone: [facility] 07-02-2024 14:29-0500 Body height 182.9 cm Cameron Vargas MD Work Phone: [facility] 07-02-2024 14:29-0500 Body mass index (BMI) [Ratio] 35.26 kg/m2 Cameron Vargas MD Work Phone: [facility] 07-02-2024 14:29-0500 Body weight 117.94 kg Cameron Vargas MD Work Phone: [facility] 06-15-2024 02:52-0400 Body temperature 98 [degF] [facility] 06-15-2024 02:52-0400 Diastolic blood pressure 89 mm[Hg] Dr. Reg Hartman [facility] 06-15-2024 02:52-0400 Heart rate 94 /min Dr. Reg Rogel [facility] 06-15-2024 02:52-0400 Oxygen saturation in Blood 95 % Dr. Reg Hartman [facility] 06-15-2024 02:52-0400 Respiratory rate 16 /min Dr. Reg Lou [facility] 06-15-2024 02:52-0400 Systolic blood pressure 132 mm[Hg] Dr. Reg Hartman [facility] 06-07-2024 21:02-0400 Body temperature 98.2 [degF] [facility] 06-07-2024 21:02-0400 Diastolic blood pressure 86 mm[Hg] Dr. Reg Hartman [facility] 06-07-2024 21:02-0400 Heart rate 90 /[facility]-07-[facility] 21:02-0400 Oxygen saturation in Blood 96 % Dr. Reg Hartman [facility] 06-07-2024 21:02-0400 Respiratory rate 20 /[facility] 06-07-2024 21:02-0400 Systolic blood pressure 129 mm[Hg] Dr. Reg Hartman [facility] 06-01-2024 03:48-0400 Body temperature 98.2 [degF] [facility] 06-01-2024 03:48-0400 Diastolic blood pressure 85 mm[Hg] Dr. Reg Hartman [facility] 06-01-2024 03:48-0400 Heart rate 92 /min Dr. Reg Rogel [facility] 06-01-2024 03:48-0400 Oxygen saturation in Blood 95 % Dr. Reg Hartman [facility] 06-01-2024 03:48-0400 Respiratory rate 18 /min Dr. Reg Rogel [facility] 06-01-2024 03:48-0400 Systolic blood pressure 132 mm[Hg] Dr. Reg Hartman [facility] 05-24-2024 20:54-0400 Body temperature 97.8 [degF] [facility] 05-24-2024 20:54-0400 Diastolic blood pressure 82 mm[Hg] Dr. Reg Hartman [facility] 05-24-2024 20:54-0400 Heart rate 86 /min Dr. Reg Rogel [facility] 05-24-2024 20:54-0400 Oxygen saturation in Blood 98 % Dr. Reg Hartman [facility] 05-24-2024 20:54-0400 Respiratory rate 18 /[facility] 05-24-2024 20:54-0400 Systolic blood pressure 127 mm[Hg] Dr. Reg Hartman [facility] 05-22-2024 11:53-0400 Body weight 120.[address] Reg Rogel [facility] 05-18-2024 05:17-0400 Body temperature 98 [degF] [facility] 05-18-2024 05:17-0400 Diastolic blood pressure 89 mm[Hg] Dr. Reg Hartman [facility] 05-18-2024 05:17-0400 Heart rate 83 /min Dr. Reg Rogel [facility] 05-18-2024 05:17-0400 Oxygen saturation in Blood 98 % Dr. Reg Mninie [facility] 05-18-2024 05:17-0400 Respiratory rate 18 /[facility]-18-[facility] 05:17-0400 Systolic blood pressure 124 mm[Hg] Dr. Reg Hartman [facility] 05-10-2024 19:57-0400 Body temperature 98.2 [degF[facility]-10-[facility]24 19:57-0400 Diastolic blood pressure 82 mm[Hg] Dr. Reg Hartman [facility] 05-10-2024 19:57-0400 Heart rate 83 /min Dr. Reg Rogel [facility] 05-10-2024 19:57-0400 Oxygen saturation in Blood 97 % Dr. Reg Hartman [facility] 05-10-2024 19:57-0400 Respiratory rate 18 /[facility]-10-[facility]24 19:57-0400 Systolic blood pressure 130 mm[Hg] Dr. Reg Hartman [facility] 04-26-2024 20:08-0400 Body temperature 98.1 [degF] [facility] 04-26-2024 20:08-0400 Diastolic blood pressure 84 mm[Hg] Dr. Reg Hartman [facility] 04-26-2024 20:08-0400 Heart rate 85 /min Dr. Reg Hartman [facility] 04-26-2024 20:08-0400 Oxygen saturation in Blood 98 % Dr. Reg Hartman [facility] 04-26-2024 20:08-0400 Systolic blood pressure 127 mm[Hg] Dr. Reg Hartman [facility] 04-22-2024 15:17-0400 Body [facility] [facility] 04-20-[facility]24 05:30-0400 Body temperature 97.7 [degF[facility]-20-[facility] 05:30-0400 Diastolic blood pressure 88 mm[Hg] Dr. Reg Hartman [facility] 04-20-2024 05:30-0400 Heart rate 80 /min Dr. Reg Hartman [facility] 04-20-2024 05:30-0400 Oxygen saturation in Blood 97 % Dr. Reg Hartman [facility] 04-20-2024 05:30-0400 Respiratory rate 18 /min Dr. Reg Rogel [facility] 04-20-2024 05:30-0400 Systolic blood pressure 132 mm[Hg] Dr. Reg Hartman [facility] 04-12-2024 20:13-0400 Body temperature 98 [degF[facility] 04-12-2024 20:13-0400 Diastolic blood pressure 81 mm[Hg] Dr. Reg Hartman [facility] 04-12-2024 20:13-0400 Heart rate 88 /[facility] 04-12-2024 20:13-0400 Systolic blood pressure 128 mm[Hg] Dr. Reg Hartman [facility] 04-10-2024 17:23-0400 PAIN LEVEL 6 {score} [facility] 03-23-2024 19:22-0400 Body weight 125.[address] Reg Rogel [facility] 03-22-2024 20:23-0400 Body temperature 97.7 [degF[facility] 03-22-2024 20:23-0400 Diastolic blood pressure 82 mm[Hg] Dr. Reg Hartman [facility] 03-22-2024 20:23-0400 Heart rate 85 /min Dr. Reg Hartman [facility] 03-22-2024 20:23-0400 Oxygen saturation in Blood 97 % Dr. Reg Hartman [facility] 03-22-2024 20:23-0400 Respiratory rate 18 /[facility] 03-22-2024 20:23-0400 Systolic blood pressure 132 mm[Hg] Dr. Reg Hartman [facility] 01-17-2024 15:27-0400 Diastolic blood pressure 77 mm[Hg] ALEXEY Radford DPM Work Phone: [facility] 01-17-2024 15:27-0400 Systolic blood pressure 124 mm[Hg] ALEXEY Radford DPM Work Phone: [facility] 01-17-2024 15:03-0400 Body temperature 98.4 [degF] ALEXEY Radford DPM Work Phone: [facility] 01-17-2024 15:03-0400 Heart rate 78 /min CJ Hassmann DPM Work Phone: [facility] 01-17-2024 15:03-0400 SaO2% (BldA) [Mass fraction] 93 % CJ Hassmann DPM Work Phone: [facility] 09-09-2023 13:04-0500 Body temperature 98.01 [degF] Cecilia Akron DPM Work Phone: [facility] 09-09-2023 13:04-0500 Diastolic blood pressure 80 mm[Hg] Cecilia Akron DPM Work Phone: [facility] 09-09-2023 13:04-0500 Heart rate 88 /min Cecilia Akron DPM Work Phone: [facility] 09-09-2023 13:04-0500 Respiratory rate 16 /min Cecilia Janet DPM Work Phone: [facility] 09-09-2023 13:04-0500 SaO2% (BldA) [Mass fraction] 91 % Cecilia Janet DPM Work Phone: [facility] 09-09-2023 13:04-0500 Systolic blood pressure 168 mm[Hg] Cecilia Janet DPM Work Phone: [facility] 09-02-2023 14:33-0500 Body temperature 98.6 [degF] Cecilia Akron DPM Work Phone: [facility] 09-02-2023 14:33-0500 Diastolic blood pressure 83 mm[Hg] Cecilia Akron DPM Work Phone: [facility] 09-02-2023 14:33-0500 Heart rate 89 /min Cecilia Akron DPM Work Phone: [facility] 09-02-2023 14:33-0500 Respiratory rate 16 /min Cecilia Janet DPM Work Phone: [facility] 09-02-2023 14:33-0500 Systolic blood pressure 145 mm[Hg] Cecilia Janet DPM Work Phone: [facility] 08-26-2023 13:16-0500 Body temperature 98.29 [degF] Cecilia Akron DPM Work Phone: [facility] 08-26-2023 13:16-0500 Diastolic blood pressure 91 mm[Hg] Cecilia Akron DPM Work Phone: [facility] 08-26-2023 13:16-0500 Heart rate 85 /min Cecilia Janet DPM Work Phone: [facility] 08-26-2023 13:16-0500 Respiratory rate 16 /min Cecilia Akron DPM Work Phone: [facility] 08-26-2023 13:16-0500 SaO2% (BldA) [Mass fraction] 92 % Cecilia Akron DPM Work Phone: [facility] 08-26-2023 13:16-0500 Systolic blood pressure 173 mm[Hg] Cecilia Janet DPM Work Phone: [facility] 08-19-2023 10:54-0500 Body temperature 97.3 [degF] Cecilia Janet DPM Work Phone: [facility] 08-19-2023 10:54-0500 Diastolic blood pressure 82 mm[Hg] Cecilia Akron DPM Work Phone: [facility] 08-19-2023 10:54-0500 Heart rate 91 /min Cecilia Janet DPM Work Phone: [facility] 08-19-2023 10:54-0500 Respiratory rate 16 /min Cecilia Janet DPM Work Phone: [facility] 08-19-2023 10:54-0500 SaO2% (BldA) [Mass fraction] 90 % Cecilia Janet DPM Work Phone: [facility] 08-19-2023 10:54-0500 Systolic blood pressure 155 mm[Hg] Cecilia Janet DPM Work Phone: [facility] 08-11-2023 15:19-0500 Respiratory rate 16 /min Christian Porter MD Work Phone: [facility] 08-11-2023 09:35-0500 Body temperature 98.2 [degF] Christian Porter MD Work Phone: [facility] 08-11-2023 09:35-0500 Diastolic blood pressure 68 mm[Hg] Christian Porter MD Work Phone: [facility] 08-11-2023 09:35-0500 Heart rate 67 /min Christian Porter MD Work Phone: [facility] 08-11-2023 09:35-0500 SaO2% (BldA) [Mass fraction] 97 % Christian Porter MD Work Phone: [facility] 08-11-2023 09:35-0500 Systolic blood pressure 129 mm[Hg] Christian Porter MD Work Phone: [facility] 07-29-2023 14:11-0500 Body height 182.9 cm Christian Porter MD Work Phone: [facility] 07-29-2023 14:11-0500 Body mass index (BMI) [Ratio] 32.55 kg/m2 Christian Porter MD Work Phone: [facility] 07-29-2023 14:11-0500 Body weight 108.86 kg Christian Porter MD Work Phone: [facility] 07-29-2023 13:29-0500 Body temperature 98.71 [degF] Cecilia Akron DPM Work Phone: [facility] 07-29-2023 13:29-0500 Diastolic blood pressure 78 mm[Hg] Cecilia Akron DPM Work Phone: [facility] 07-29-2023 13:29-0500 Heart rate 89 /min Cecilia Janet DPM Work Phone: [facility] 07-29-2023 13:29-0500 Respiratory rate 18 /min Cecilia Janet DPM Work Phone: [facility] 07-29-2023 13:29-0500 SaO2% (BldA) [Mass fraction] 94 % Cecilia Janet DPM Work Phone: [facility] 07-29-2023 13:29-0500 Systolic blood pressure 138 mm[Hg] Cecilia Akron DPM Work Phone: [facility] 07-15-2023 07:38-0500 Body temperature 98.71 [degF] Cecilia Akron DPM Work Phone: [facility] 07-15-2023 07:38-0500 Diastolic blood pressure 91 mm[Hg] Cecilia Janet DPM Work Phone: [facility] 07-15-2023 07:38-0500 Heart rate 93 /min Cecilia Janet DPM Work Phone: [facility] 07-15-2023 07:38-0500 Respiratory rate 18 /min Cecilia Janet DPM Work Phone: [facility] 07-15-2023 07:38-0500 SaO2% (BldA) [Mass fraction] 95 % Cecilia Akron DPM Work Phone: [facility] 07-15-2023 07:38-0500 Systolic blood pressure 162 mm[Hg] Cecilia Janet DPM Work Phone: [facility] 07-08-2023 13:31-0500 Body temperature 98.6 [degF] Cecilia Akron DPM Work Phone: [facility] 07-08-2023 13:31-0500 Diastolic blood pressure 90 mm[Hg] Cecilia Akron DPM Work Phone: [facility] 07-08-2023 13:31-0500 Heart rate 78 /min Cecilia Janet DPM Work Phone: [facility] 07-08-2023 13:31-0500 Respiratory rate 16 /min Cecilia Janet DPM Work Phone: [facility] 07-08-2023 13:31-0500 SaO2% (BldA) [Mass fraction] 94 % Cecilia Janet DPM Work Phone: [facility] 07-08-2023 13:31-0500 Systolic blood pressure 169 mm[Hg] Cecilia Akron DPM Work Phone: [facility] 07-01-2023 13:35-0500 Body height 182.9 cm Cecilia Akron DPM Work Phone: [facility] 07-01-2023 13:35-0500 Body mass index (BMI) [Ratio] 32.96 kg/m2 Cecilia Jaent DPM Work Phone: [facility] 07-01-2023 13:35-0500 Body weight 110.22 kg Cecilia Janet DPM Work Phone: [facility] 07-01-2023 13:27-0500 Body temperature 97.5 [degF] Cecilia Akron DPM Work Phone: [facility] 07-01-2023 13:27-0500 Diastolic blood pressure 77 mm[Hg] Cecilia Akron DPM Work Phone: [facility] 07-01-2023 13:27-0500 Heart rate 73 /min Cecilia Akron DPM Work Phone: [facility] 07-01-2023 13:27-0500 Respiratory rate 18 /min Cecilia Akron DPM Work Phone: [facility] 07-01-2023 13:27-0500 SaO2% (BldA) [Mass fraction] 95 % Cecilia Janet DPM Work Phone: [facility] 07-01-2023 13:27-0500 Systolic blood pressure 149 mm[Hg] Cecilia Janet DPM Work Phone: [facility] 06-17-2023 09:06-0400 Body temperature 98.49 [degF] Quyen Domka [employer] Work Phone: [facility] 06-17-2023 09:06-0400 Diastolic blood pressure 75 mm[Hg] Quyen Domka [employer]ATOR Work Phone: [facility] 06-17-2023 09:06-0400 Heart rate 80 /min Quyen Domka [employer]ATOR Work Phone: [facility] 06-17-2023 09:06-0400 Respiratory rate 16 /min Quyen Domka [employer] OPERATOR Work Phone: [facility] 06-17-2023 09:06-0400 SaO2% (BldA) [Mass fraction] 97 % Quyen Domka [employer] OPERATOR Work Phone: [facility] 06-17-2023 09:06-0400 Systolic blood pressure 138 mm[Hg] Quyen Domka [employer] OPERATOR Work Phone: [facility] 06-12-2023 00:27-0400 Diastolic blood pressure 69 mm[Hg] Nathan Collins MD Work Phone: [facility] 06-12-2023 00:27-0400 Heart rate 77 /min Nathan Collins MD Work Phone: [facility] 06-12-2023 00:27-0400 SaO2% (BldA) [Mass fraction] 95 % Nathan Collins MD Work Phone: [facility] 06-12-2023 00:27-0400 Systolic blood pressure 110 mm[Hg] Nathan Collins MD Work Phone: [facility] 05-24-2023 23:58-0400 Body mass index (BMI) [Ratio] 31.22 kg/m2 Nathan Collins MD Work Phone: [facility] 05-24-2023 23:58-0400 Body temperature 98.01 [degF] Nathan Collins MD Work Phone: [facility] 05-24-2023 23:58-0400 Body weight 104.42 kg Nathan Collins MD Work Phone: [facility] 05-24-2023 23:58-0400 Diastolic blood pressure 60 mm[Hg] Nathan Collins MD Work Phone: [facility] 05-24-2023 23:58-0400 Heart rate 72 /min Nathan Collins MD Work Phone: [facility] 05-24-2023 23:58-0400 Respiratory rate 16 /min Nathan Collins MD Work Phone: [facility] 05-24-2023 23:58-0400 SaO2% (BldA) [Mass fraction] 97 % Nathan Collins MD Work Phone: [facility] 05-24-2023 23:58-0400 Systolic blood pressure 120 mm[Hg] Nathan Collins MD Work Phone: [facility] 04-26-2023 11:14-0400 Body temperature 97.7 [degF] Av Sarath Gal Wound Nurse [facility] 04-26-2023 11:14-0400 Diastolic blood pressure 85 mm[Hg] Av Sarath Gal Wound Nurse [facility] 04-26-2023 11:14-0400 Heart rate 74 /min Av Sarath Gal Wound Nurse [facility] 04-26-2023 11:14-0400 Respiratory rate 18 /min Av Sarath Gal Wound Nurse [facility] 04-26-2023 11:14-0400 Systolic blood pressure 143 mm[Hg] Av Sarath Gal Wound Nurse [facility] 04-18-2023 12:17-0400 Body height 183.1 cm Nathan Hayden MD Work Phone: [facility] 04-18-2023 12:17-0400 Body mass index (BMI) [Ratio] 31.11 kg/m2 Nathan Hayden MD Work Phone: [facility] 04-18-2023 12:17-0400 Body temperature 97.2 [degF] Nathan Hayden MD Work Phone: [facility] 04-18-2023 12:17-0400 Body weight 104.33 kg Nathan Hayden MD Work Phone: [facility] 04-18-2023 12:17-0400 Diastolic blood pressure 80 mm[Hg] Nathan Hayden MD Work Phone: [facility] 04-18-2023 12:17-0400 Heart rate 84 /min Nathan Hayden MD Work Phone: [facility] 04-18-2023 12:17-0400 Respiratory rate 18 /min Nathan Hayden MD Work Phone: [facility] 04-18-2023 12:17-0400 SaO2% (BldA) [Mass fraction] 93 % Nathan Hayden MD Work Phone: [facility] 04-18-2023 12:17-0400 Systolic blood pressure 138 mm[Hg] Nathan Hayden MD Work Phone: [facility] 04-07-2023 10:10-0400 Body height 183.1 cm Nathan Hayden MD Work Phone: [facility] 04-07-2023 10:10-0400 Body mass index (BMI) [Ratio] 31.24 kg/m2 Nathan Hayden MD Work Phone: [facility] 04-07-2023 10:10-0400 Body temperature 97.9 [degF] Nathan Hayden MD Work Phone: [facility] 04-07-2023 10:10-0400 Body weight 104.78 kg Nathan Hayden MD Work Phone: [facility] 04-07-2023 10:10-0400 Diastolic blood pressure 82 mm[Hg] Nathan Hayden MD Work Phone: [facility] 04-07-2023 10:10-0400 Heart rate 84 /min Nathan Hayden MD Work Phone: [facility] 04-07-2023 10:10-0400 Respiratory rate 18 /min Nathan Hayden MD Work Phone: [facility] 04-07-2023 10:10-0400 SaO2% (BldA) [Mass fraction] 97 % Nathan Hayden MD Work Phone: [facility] 04-07-2023 10:10-0400 Systolic blood pressure 124 mm[Hg] Nathan Hayden MD Work Phone: [facility] 03-31-2023 08:12-0400 Body height 182.9 cm Nathan Hayden MD Work Phone: [facility] 03-31-2023 08:12-0400 Body mass index (BMI) [Ratio] 31.18 kg/m2 Nathan Hayden MD Work Phone: [facility] 03-31-2023 08:12-0400 Body temperature 97.59 [degF] Nathan Hayden MD Work Phone: [facility] 03-31-2023 08:12-0400 Body weight 104.33 kg Nathan Hayden MD Work Phone: [facility] 03-31-2023 08:12-0400 Diastolic blood pressure 82 mm[Hg] Nathan Hayden MD Work Phone: [facility] 03-31-2023 08:12-0400 Heart rate 112 /min Nathan Hayden MD Work Phone: [facility] 03-31-2023 08:12-0400 Respiratory rate 16 /min Nathan Hayden MD Work Phone: [facility] 03-31-2023 08:12-0400 SaO2% (BldA) [Mass fraction] 98 % Nathan Hayden MD Work Phone: [facility] 03-31-2023 08:12-0400 Systolic blood pressure 138 mm[Hg] Nathan Hayden MD Work Phone: [facility] 03-23-2023 18:10-0400 Body temperature 98.1 [degF] Nathan Collins MD Work Phone: [facility] 03-23-2023 18:10-0400 Diastolic blood pressure 66 mm[Hg] Nathan Collins MD Work Phone: [facility] 03-23-2023 18:10-0400 Heart rate 72 /min Nathan Collins MD Work Phone: [facility] 03-23-2023 18:10-0400 Respiratory rate 16 /min Nathan Collins MD Work Phone: [facility] 03-23-2023 18:10-0400 SaO2% (BldA) [Mass fraction] 99 % Nathan Collins MD Work Phone: [facility] 03-23-2023 18:10-0400 Systolic blood pressure 120 mm[Hg] Nathan Collins MD Work Phone: [facility] 03-22-2023 11:25-0400 Body temperature 98.2 [degF] Power Nelson MD Work Phone: [facility] 03-22-2023 11:25-0400 Diastolic blood pressure 73 mm[Hg] Power Nelson MD Work Phone: [facility] 03-22-2023 11:25-0400 Heart rate 68 /min Power Nelson MD Work Phone: [facility] 03-22-2023 11:25-0400 Respiratory rate 19 /min Power Nelson MD Work Phone: [facility] 03-22-2023 11:25-0400 SaO2% (BldA) [Mass fraction] 94 % Power Nelson MD Work Phone: [facility] 03-22-2023 11:25-0400 Systolic blood pressure 114 mm[Hg] Power Nelson MD Work Phone: [facility] 03-17-2023 03:12-0400 Body height 182.9 cm Power Nelson MD Work Phone: [facility] 03-16-2023 23:00-0400 Body mass index (BMI) [Ratio] 31.19 kg/m2 Power Nelson MD Work Phone: [facility] 03-16-2023 23:00-0400 Body weight 104.33 kg Power Nelson MD Work Phone: [facility] 03-16-2023 20:44-0400 Diastolic blood pressure 77 mm[Hg] Shai Leonard MD Work Phone: [facility] 03-16-2023 20:44-0400 Heart rate 68 /min Shai Leonard MD Work Phone: [facility] 03-16-2023 20:44-0400 Respiratory rate 16 /min Shai Leonard MD Work Phone: [facility] 03-16-2023 20:44-0400 SaO2% (BldA) [Mass fraction] 96 % Shai Leonard MD Work Phone: [facility] 03-16-2023 20:44-0400 Systolic blood pressure 138 mm[Hg] Shai Leonard MD Work Phone: [facility] 03-16-2023 19:21-0400 Body temperature 97 [degF] Shai Leonard MD Work Phone: [facility] 03-16-2023 16:51-0400 Body mass index (BMI) [Ratio] 29.84 kg/m2 Shai Leonard MD Work Phone: [facility] 03-16-2023 16:51-0400 Body weight 99.79 kg Shai Leonard MD Work Phone: [facility] Comment on above: reported 02-27-2023 00:00-0400 Diastolic blood pressure 57 mm[Hg] Shai Leonard MD Work Phone: [facility] 02-27-2023 00:00-0400 Heart rate 63 /min Shai Leonard MD Work Phone: [facility] 02-27-2023 00:00-0400 Respiratory rate 16 /min Shai Leonard MD Work Phone: [facility] 02-27-2023 00:00-0400 SaO2% (BldA) [Mass fraction] 96 % Shai Leonard MD Work Phone: [facility] 02-27-2023 00:00-0400 Systolic blood pressure 100 mm[Hg] Shai Leonard MD Work Phone: [facility] 02-26-2023 20:37-0400 Body height 182.9 cm Shai Leonard MD Work Phone: [facility] 02-26-2023 20:36-0400 Body temperature 97.39 [degF] Shai Leonard MD Work Phone: [facility] 02-15-2023 15:30-0400 Body temperature 97 [degF] Ami Hay MODELING AGENT-PACKAGE LINE RELIEF OPERATOR Work Phone: [facility] 02-15-2023 15:30-0400 Diastolic blood pressure 78 mm[Hg] Ami Hay MODELING AGENT-[employer]AGE [employer] RELIEF OPERATOR Work Phone: [facility] 02-15-2023 15:30-0400 Heart rate 76 /min Ami Hay MODELING AGENT-[employer]AGE [employer] RELIEF OPERATOR Work Phone: [facility] 02-15-2023 15:30-0400 Respiratory rate 18 /min Ami Hay MODELING AGENT-[employer]AGE [employer] RELIEF OPERATOR Work Phone: [facility] 02-15-2023 15:30-0400 Systolic blood pressure 127 mm[Hg] Ami Hay MODELING AGENT-[employer]AGE [employer] RELIEF OPERATOR Work Phone: [facility] 02-08-2023 15:17-0400 Body height 182.9 cm Kristi Bark DPM Work Phone: [facility] 02-08-2023 15:17-0400 Body mass index (BMI) [Ratio] 30.8 kg/m2 Kristi Bark DPM Work Phone: [facility] 02-08-2023 15:17-0400 Body temperature 97.81 [degF] Kristi Bark DPM Work Phone: [facility] 02-08-2023 15:17-0400 Body weight 103 kg Kristi Bryan DPM Work Phone: [facility] 02-08-2023 13:16-0400 Body temperature 96.91 [degF] Ami Hay MODELING AGENT-[employer]AGE [employer] RELIEF OPERATOR Work Phone: [facility] 02-08-2023 13:16-0400 Diastolic blood pressure 87 mm[Hg] Ami Hay MODELING AGENT-[employer]AGE [employer] RELIEF OPERATOR Work Phone: [facility] 02-08-2023 13:16-0400 Heart rate 70 /min Ami Hay MODELING AGENT-[employer] RELIEF OPERATOR Work Phone: [facility] 02-08-2023 13:16-0400 Respiratory rate 18 /min Ami Hay MODELING AGENT-[employer] RELIEF OPERATOR Work Phone: [facility] 02-08-2023 13:16-0400 Systolic blood pressure 142 mm[Hg] Ami Hay MODELING AGENT-PACKAGE [employer] RELIEF OPERATOR Work Phone: [facility] 01-26-2023 10:56-0400 Body height 182.9 cm Nathan Hayden MD Work Phone: [facility] 01-26-2023 10:56-0400 Body mass index (BMI) [Ratio] 29.97 kg/m2 Nathan Hayden MD Work Phone: [facility] 01-26-2023 10:56-0400 Body temperature 98.49 [degF] Nathan Hayden MD Work Phone: [facility] 01-26-2023 10:56-0400 Body weight 100.25 kg Nathan Hayden MD Work Phone: [facility] 01-26-2023 10:56-0400 Diastolic blood pressure 64 mm[Hg] Nathan Hayden MD Work Phone: [facility] 01-26-2023 10:56-0400 Heart rate 93 /min Nathan Hayden MD Work Phone: [facility] 01-26-2023 10:56-0400 Respiratory rate 16 /min Nathan Hayden MD Work Phone: [facility] 01-26-2023 10:56-0400 SaO2% (BldA) [Mass fraction] 93 % Nathan Hayden MD Work Phone: [facility] 01-26-2023 10:56-0400 Systolic blood pressure 134 mm[Hg] Nathan Hayden MD Work Phone: [facility] 01-25-2023 13:45-0400 Body temperature 96.01 [degF] Ami Hay MODELING AGENT-[employer]AGE [employer] RELIEF OPERATOR Work Phone: [facility] 01-25-2023 13:45-0400 Diastolic blood pressure 82 mm[Hg] Ami Hay MODELING AGENT-[employer]AGE [employer] RELIEF OPERATOR Work Phone: [facility] 01-25-2023 13:45-0400 Heart rate 82 /min Ami Hay MODELING AGENT-[employer]AGE [employer] RELIEF OPERATOR Work Phone: [facility] 01-25-2023 13:45-0400 Respiratory rate 19 /min Ami Hay MODELING AGENT-[employer]AGE [employer] RELIEF OPERATOR Work Phone: [facility] 01-25-2023 13:45-0400 Systolic blood pressure 132 mm[Hg] Ami Hay MODELING AGENT-[employer]AGE [employer] RELIEF OPERATOR Work Phone: [facility] 01-18-2023 13:40-0400 Body temperature 97.59 [degF] Ami Hay MODELING AGENT-[employer]AGE [employer] RELIEF OPERATOR Work Phone: [facility] 01-18-2023 13:40-0400 Diastolic blood pressure 66 mm[Hg] Ami Hay MODELING AGENT-[employer]AGE [employer] RELIEF OPERATOR Work Phone: [facility] 01-18-2023 13:40-0400 Heart rate 73 /min Ami Hay MODELING AGENT-[employer]AGE [employer] RELIEF OPERATOR Work Phone: [facility] 01-18-2023 13:40-0400 Respiratory rate 19 /min Ami Hay MODELING AGENT-[employer]AGE [employer] RELIEF OPERATOR Work Phone: [facility] 01-18-2023 13:40-0400 Systolic blood pressure 108 mm[Hg] Ami Hay MODELING AGENT-PACKAGE [employer] RELIEF OPERATOR Work Phone: [facility] 12-28-2022 13:39-0400 Body temperature 96.6 [degF] Ami Hay MODELING AGENT-PACKAGE [employer] RELIEF OPERATOR Work Phone: [facility] 12-28-2022 13:39-0400 Diastolic blood pressure 81 mm[Hg] Ami Hay MODELING AGENT-PACKAGE [employer] RELIEF OPERATOR Work Phone: [facility] 12-28-2022 13:39-0400 Heart rate 73 /min Ami Hay MODELING AGENT-[employer]AGE [employer] RELIEF OPERATOR Work Phone: [facility] 12-28-2022 13:39-0400 Respiratory rate 20 /min Ami Hay MODELING AGENT-[employer]AGE [employer] RELIEF OPERATOR Work Phone: [facility] 12-28-2022 13:39-0400 Systolic blood pressure 125 mm[Hg] Ami Hay MODELING AGENT-[employer]AGE [employer] RELIEF OPERATOR Work Phone: [facility] 12-21-2022 13:08-0400 Body temperature 96.8 [degF] Ami Hay MODELING AGENT-[employer]AGE [employer] RELIEF OPERATOR Work Phone: [facility] 12-21-2022 13:08-0400 Diastolic blood pressure 75 mm[Hg] Ami Hay MODELING AGENT-PACKAGE [employer] RELIEF OPERATOR Work Phone: [facility] 12-21-2022 13:08-0400 Heart rate 88 /min Ami Hay MODELING AGENT-[employer]AGE [employer] RELIEF OPERATOR Work Phone: [facility] 12-21-2022 13:08-0400 Respiratory rate 18 /min Ami Hay MODELING AGENT-PACKAGE [employer] RELIEF OPERATOR Work Phone: [facility] 12-21-2022 13:08-0400 Systolic blood pressure 115 mm[Hg] Ami Hay MODELING AGENT-PACKAGE [employer] RELIEF OPERATOR Work Phone: [facility] 12-14-2022 09:22-0400 Body temperature 97.81 [degF] Ami Hay MODELING AGENT-[employer]AGE [employer] RELIEF OPERATOR Work Phone: [facility] 12-14-2022 09:22-0400 Diastolic blood pressure 62 mm[Hg] Ami Hay MODELING AGENT-[employer]AGE [employer] RELIEF OPERATOR Work Phone: [facility] 12-14-2022 09:22-0400 Heart rate 65 /min Ami Hay MODELING AGENT-[employer]AGE [employer] RELIEF OPERATOR Work Phone: [facility] 12-14-2022 09:22-0400 Respiratory rate 19 /min Ami Hay MODELING AGENT-[employer]AGE [employer] RELIEF OPERATOR Work Phone: [facility] 12-14-2022 09:22-0400 Systolic blood pressure 106 mm[Hg] Ami Hay MODELING AGENT-PACKAGE [employer] RELIEF OPERATOR Work Phone: [facility] 12-08-2022 09:24-0400 Body height 182.9 cm Nathan Hayden MD Work Phone: [facility] 12-08-2022 09:24-0400 Body mass index (BMI) [Ratio] 31.49 kg/m2 Nathan Hayden MD Work Phone: [facility] 12-08-2022 09:24-0400 Body temperature 97.5 [degF] Nathan Hayden MD Work Phone: [facility] 12-08-2022 09:24-0400 Body weight 105.33 kg Nathan Hayden MD Work Phone: [facility] 12-08-2022 09:24-0400 Diastolic blood pressure 78 mm[Hg] Nathan Hayden MD Work Phone: [facility] 12-08-2022 09:24-0400 Heart rate 78 /min Nathan Hayden MD Work Phone: [facility] 12-08-2022 09:24-0400 Respiratory rate 14 /min Nathan Hayden MD Work Phone: [facility] 12-08-2022 09:24-0400 SaO2% (BldA) [Mass fraction] 97 % Nathan Hayden MD Work Phone: [facility] 12-08-2022 09:24-0400 Systolic blood pressure 188 mm[Hg] Nathan Hayden MD Work Phone: [facility] 11-30-2022 13:58-0400 Body temperature 97.5 [degF] Av[facility] Sarath Gal Wound Nurse [facility] 11-30-2022 13:58-0400 Diastolic blood pressure 75 mm[Hg] [facility] 11-30-2022 13:58-0400 Heart rate 78 /min [facility] Wound Nurse [facility] 11-30-2022 13:58-0400 Respiratory rate 16 /min [facility] Wound Nurse [facility] 11-30-2022 13:58-0400 Systolic blood pressure 119 mm[Hg] [facility] Wound Nurse [facility] 11-25-2022 15:11-0400 Body height 185.4 cm Bridget Dahl MD Work Phone: 0(536)[phone] [place] [address] 11-25-2022 15:11-0400 Body mass index (BMI) [Ratio] 31.27 kg/m2 Bridget Dahl MD Work Phone: 2(125)[phone] [place] [address] 11-25-2022 15:11-0400 Body temperature 98.2 [degF] Bridget Dahl MD Work Phone: 1(891)[phone] [place] [address] 11-25-2022 15:11-0400 Body weight 107.5 kg Bridget Dahl MD Work Phone: 4(933)[phone] [place] [address] 11-25-2022 15:11-0400 Diastolic blood pressure 59 mm[Hg] Bridget Dahl MD Work Phone: 2(001)[phone] [place] [address] 11-25-2022 15:11-0400 Heart rate 68 /min Bridget Dahl MD Work Phone: 7(001)[phone] [place] [address] 11-25-2022 15:11-0400 Respiratory rate 18 /min Bridget Dahl MD Work Phone: 0(072)[phone] [place] [address] 11-25-2022 15:11-0400 SaO2% (BldA) [Mass fraction] 97 % Bridget Dahl MD Work Phone: [facility] 11-25-2022 15:11-0400 Systolic blood pressure 113 mm[Hg] Bridget Dahl MD Work Phone: [facility] 11-23-2022 13:37-0400 Body temperature 97.3 [degF] Ami Hay MODELING AGENT-PACKAGE [employer] RELIEF OPERATOR Work Phone: [employer] 11-23-2022 13:37-0400 Diastolic blood pressure 54 mm[Hg] Ami Hay MODELING AGENT-[employer]AGE [employer] RELIEF OPERATOR Work Phone: [facility] 11-23-2022 13:37-0400 Heart rate 73 /min Ami Hay MODELING AGENT-[employer]AGE [employer] RELIEF OPERATOR Work Phone: [employer] 11-23-2022 13:37-0400 Respiratory rate 20 /min Ami Hay MODELING AGENT-PACKAGE [employer] RELIEF OPERATOR Work Phone: [facility] 11-23-2022 13:37-0400 Systolic blood pressure 108 mm[Hg] Ami Hay MODELING AGENT-[employer]AGE [employer] RELIEF OPERATOR Work Phone: [facility] 11-16-2022 08:03-0400 Body temperature 97.11 [degF] Ami Hay MODELING AGENT-[employer]AGE [employer] RELIEF OPERATOR Work Phone: [employer] 11-16-2022 08:03-0400 Diastolic blood pressure 67 mm[Hg] Ami Hay MODELING AGENT-[employer] RELIEF OPERATOR Work Phone: [employer] 11-16-2022 08:03-0400 Heart rate 77 /min Ami Hay MODELING AGENT-[employer]AGE [employer] RELIEF OPERATOR Work Phone: [facility] 11-16-2022 08:03-0400 Respiratory rate 18 /min Ami Hay MODELING AGENT-[employer]AGE [employer] RELIEF OPERATOR Work Phone: [facility] 11-16-2022 08:03-0400 Systolic blood pressure 110 mm[Hg] Ami Hay MODELING AGENT-[employer]AGE [employer] RELIEF OPERATOR Work Phone: [facility] 11-03-2022 08:50-0400 Body height 182.9 cm Nathan Hayden MD Work Phone: [facility] 11-03-2022 08:50-0400 Body mass index (BMI) [Ratio] 31.68 kg/m2 Nathan Hayden MD Work Phone: [facility] 11-03-2022 08:50-0400 Body temperature 96.91 [degF] Nathan Hayden MD Work Phone: [facility] 11-03-2022 08:50-0400 Body weight 105.96 kg Nathan Hayden MD Work Phone: [facility] 11-03-2022 08:50-0400 Diastolic blood pressure 78 mm[Hg] Nathan Hayden MD Work Phone: [facility] 11-03-2022 08:50-0400 Heart rate 72 /min Nathan Hayden MD Work Phone: [facility] 11-03-2022 08:50-0400 Respiratory rate 16 /min Nathan Hayden MD Work Phone: [facility] 11-03-2022 08:50-0400 SaO2% (BldA) [Mass fraction] 98 % Nathan Hayden MD Work Phone: [facility] 11-03-2022 08:50-0400 Systolic blood pressure 122 mm[Hg] Nathan Hayden MD Work Phone: [facility] 10-21-2022 13:54-0500 Diastolic blood pressure 76 mm[Hg] Antony Suarez Jr., DO Work Phone: [facility] 10-21-2022 13:54-0500 Heart rate 70 /min Antony Suarez Jr. DO Work Phone: [facility] 10-21-2022 13:54-0500 Respiratory rate 16 /min Antony Suarez Jr. DO Work Phone: [facility] 10-21-2022 13:54-0500 SaO2% (BldA) [Mass fraction] 100 % Antony Suarez Jr. DO Work Phone: [facility] 10-21-2022 13:54-0500 Systolic blood pressure 123 mm[Hg] Antony Suarez Jr., DO Work Phone: [facility] 10-21-2022 13:44-0500 Body temperature 96.91 [degF] Antony Suarez Jr., DO Work Phone: [facility] 10-21-2022 11:24-0500 Body height 182.9 cm Antony Suarez Jr., DO Work Phone: [facility] 10-21-2022 11:24-0500 Body mass index (BMI) [Ratio] 30.38 kg/m2 Antony Suarez Jr., DO Work Phone: [facility] 10-21-2022 11:24-0500 Body weight 101.61 kg Antony Suarez Jr., DO Work Phone: [facility] 09-29-2022 11:03-0500 Body height 182.9 cm Nathan Hayden MD Work Phone: [facility] 09-29-2022 11:03-0500 Body mass index (BMI) [Ratio] 30.41 kg/m2 Nathan Hayden MD Work Phone: [facility] 09-29-2022 11:03-0500 Body temperature 97.2 [degF] Nathan Hayden MD Work Phone: [facility] 09-29-2022 11:03-0500 Body weight 101.7 kg Nathan Hayden MD Work Phone: [facility] 09-29-2022 11:03-0500 Diastolic blood pressure 78 mm[Hg] Nathan Hayden MD Work Phone: [facility] 09-29-2022 11:03-0500 Heart rate 88 /min Nathan Hayden MD Work Phone: [facility] 09-29-2022 11:03-0500 Respiratory rate 16 /min Nathan Hayden MD Work Phone: [facility] 09-29-2022 11:03-0500 SaO2% (BldA) [Mass fraction] 97 % Nathan Hayden MD Work Phone: [facility] 09-29-2022 11:03-0500 Systolic blood pressure 124 mm[Hg] Nathan Hayden MD Work Phone: [facility] 08-26-2022 15:47-0500 Body height 182.9 cm Antony Suarez Jr., DO Work Phone: [facility] 08-26-2022 15:47-0500 Body mass index (BMI) [Ratio] 30.79 kg/m2 Antony Suarez Jr., DO Work Phone: [facility] 08-26-2022 15:47-0500 Body weight 102.97 kg Antony Suarez Jr., DO Work Phone: [facility] 08-25-2022 10:35-0500 Body height 185.4 cm Nathan Hayden MD Work Phone: [facility] 08-25-2022 10:35-0500 Body mass index (BMI) [Ratio] 30.11 kg/m2 Nathan Hayden MD Work Phone: [facility] 08-25-2022 10:35-0500 Body temperature 97.11 [degF] Nathan Hayden MD Work Phone: [facility] 08-25-2022 10:35-0500 Body weight 103.51 kg Nathan Hayden MD Work Phone: [facility] 08-25-2022 10:35-0500 Diastolic blood pressure 72 mm[Hg] Nathan Hayden MD Work Phone: [facility] 08-25-2022 10:35-0500 Heart rate 84 /min Nathan Hayden MD Work Phone: [facility] 08-25-2022 10:35-0500 Respiratory rate 14 /min Nathan Hayden MD Work Phone: [facility] 08-25-2022 10:35-0500 SaO2% (BldA) [Mass fraction] 94 % Nathan Hayden MD Work Phone: [facility] 08-25-2022 10:35-0500 Systolic blood pressure 128 mm[Hg] Nathan Hayden MD Work Phone: [facility] 07-07-2022 11:35-0500 Body height 185.4 cm Nathan Hayden MD Work Phone: [facility] 07-07-2022 11:35-0500 Body mass index (BMI) [Ratio] 31.9 kg/m2 Nathan Hayden MD Work Phone: [facility] 07-07-2022 11:35-0500 Body temperature 100.4 [degF] Nathan Hayden MD Work Phone: [facility] 07-07-2022 11:35-0500 Body weight 109.68 kg Nathan Hayden MD Work Phone: [facility] 07-07-2022 11:35-0500 Diastolic blood pressure 80 mm[Hg] Nathan Hayden MD Work Phone: [facility] 07-07-2022 11:35-0500 Heart rate 91 /min Nathan Hayden MD Work Phone: [facility] 07-07-2022 11:35-0500 Respiratory rate 13 /min Nathan Hayden MD Work Phone: [facility] 07-07-2022 11:35-0500 SaO2% (BldA) [Mass fraction] 96 % Nathan Hayden MD Work Phone: [facility] 07-07-2022 11:35-0500 Systolic blood pressure 130 mm[Hg] Nathan Hayden MD Work Phone: [facility] 06-07-2022 18:27-0400 Body height 182.9 cm Pattie Roman APRN-PACKAGE LINE RELIEF OPERATOR Work Phone: [facility] 06-07-2022 18:27-0400 Body mass index (BMI) [Ratio] 32.67 kg/m2 Pattie Roman APRN-[employer]AGE [employer] RELIEF OPERATOR Work Phone: [facility] 06-07-2022 18:27-0400 Body temperature 98.1 [degF] Pattie Roman APRN-PACKAGE [employer] RELIEF OPERATOR Work Phone: [facility] 06-07-2022 18:27-0400 Body weight 109.27 kg Pattie Roman MODELING AGENT-[employer] RELIEF OPERATOR Work Phone: [facility] 06-07-2022 18:27-0400 Diastolic blood pressure 83 mm[Hg] Pattie Roman MODELING AGENT-[employer] RELIEF OPERATOR Work Phone: [facility] 06-07-2022 18:27-0400 Heart rate 74 /min Pattie Roman MODELING AGENT-[employer]AGE [employer] RELIEF OPERATOR Work Phone: [facility] 06-07-2022 18:27-0400 Respiratory rate 18 /min Pattie Roman MODELING AGENT-[employer] RELIEF OPERATOR Work Phone: [facility] 06-07-2022 18:27-0400 SaO2% (BldA) [Mass fraction] 95 % Pattie Roman MODELING AGENT-[employer]AGE [employer] RELIEF OPERATOR Work Phone: [facility] 06-07-2022 18:27-0400 Systolic blood pressure 145 mm[Hg] Pattie Roman MODELING AGENT-[employer]AGE [employer] RELIEF OPERATOR Work Phone: [facility] 05-12-2022 18:49-0400 Body height 182.9 cm Ani Thomneftaly MODELING AGENT-[employer] RELIEF OPERATOR Work Phone: [facility] 05-12-2022 18:49-0400 Body mass index (BMI) [Ratio] 33.91 kg/m2 Ani Thomneftaly MODELING AGENT-[employer] RELIEF OPERATOR Work Phone: [facility] 05-12-2022 18:49-0400 Body weight 113.4 kg Ani Meir MODELING AGENT-[employer] RELIEF OPERATOR Work Phone: [facility] 05-12-2022 18:48-0400 Body temperature 98.6 [degF] Ani Worley MODELING AGENT-PACKAGE [employer] RELIEF OPERATOR Work Phone: [employer] [facility] 05-12-2022 18:48-0400 Diastolic blood pressure 61 mm[Hg] Ani Thomneftaly MODELING AGENT-[employer]AGE [employer] RELIEF OPERATOR Work Phone: [facility] 05-12-2022 18:48-0400 Heart rate 84 /min Ani Worley APRN-PACKAGE [employer] RELIEF OPERATOR Work Phone: [facility] 05-12-2022 18:48-0400 Respiratory rate 22 /min Ani Worley APRN-PACKAGE [employer] RELIEF OPERATOR Work Phone: [facility] 05-12-2022 18:48-0400 SaO2% (BldA) [Mass fraction] 94 % Ani Worley APRN-PACKAGE [employer] RELIEF OPERATOR Work Phone: [facility] 05-12-2022 18:48-0400 Systolic blood pressure 131 mm[Hg] Ani Worley APRN-PACKAGE [employer] RELIEF OPERATOR [facility]: [facility] 05-03-2022 18:58-0400 Body height 182.9 cm Zhao Abraham MD Work Phone: [facility] [employer] 05-03-2022 18:58-0400 Body mass index (BMI) [Ratio] 33.23 kg/m2 Zhao Abraham MD Work Phone: [facility] [employer] 05-03-2022 18:58-0400 Body temperature 98.2 [degF] Zhao Abraham MD Work Phone: [facility] [employer] 05-03-2022 18:58-0400 Body weight 111.13 kg Zhao Abraham MD Work Phone: [facility] [employer] 05-03-2022 18:58-0400 Diastolic blood pressure 59 mm[Hg] Zhao Abraham MD Work Phone: [facility] [employer] 05-03-2022 18:58-0400 Heart rate 85 /min Zhao Abraham MD Work Phone: [facility] [employer] 05-03-2022 18:58-0400 Respiratory rate 18 /min Zhao Abraham MD Work Phone: [facility] [employer] 05-03-2022 18:58-0400 SaO2% (BldA) [Mass fraction] 98 % Zhao Abraham MD Work Phone: [facility] 05-03-2022 18:58-0400 Systolic blood pressure 113 mm[Hg] Zhao Abraham MD Work Phone: [facility] 04-21-2022 10:58-0400 Body temperature 98.29 [degF] Carolina Solis MD Work Phone: [facility] 04-21-2022 10:58-0400 Diastolic blood pressure 47 mm[Hg] Carolina Solis MD Work Phone: [facility] 04-21-2022 10:58-0400 Heart rate 63 /min Carolina Solis MD Work Phone: [facility] 04-21-2022 10:58-0400 Respiratory rate 16 /min Carolina Solis MD Work Phone: [facility] 04-21-2022 10:58-0400 SaO2% (BldA) [Mass fraction] 92 % Carolina Solis MD Work Phone: [facility] 04-21-2022 10:58-0400 Systolic blood pressure 87 mm[Hg] Carolina Solis MD Work Phone: [facility] 04-20-2022 18:51-0400 Body height 182.9 cm Carolina Solis MD Work Phone: [facility] 04-20-2022 18:51-0400 Body mass index (BMI) [Ratio] 36.66 kg/m2 Carolina Solis MD Work Phone: [facility] 04-20-2022 18:51-0400 Body weight 122.6 kg Carolina Solis MD Work Phone: [facility] 03-07-2022 02:19-0400 Diastolic blood pressure 62 mm[Hg] Nuno Cantor MD Work Phone: [facility] 03-07-2022 02:19-0400 Heart rate 86 /min Nuno Cantor MD Work Phone: [facility] 03-07-2022 02:19-0400 Respiratory rate 20 /min Nuno Cantor MD Work Phone: [facility] 03-07-2022 02:19-0400 SaO2% (BldA) [Mass fraction] 97 % Nuno Cantor MD Work Phone: [facility] 03-07-2022 02:19-0400 Systolic blood pressure 109 mm[Hg] Nuno Cantor MD Work Phone: [facility] 03-07-2022 00:02-0400 Body height 182.9 cm Nuno Cantor MD Work Phone: [facility] 03-07-2022 00:02-0400 Body mass index (BMI) [Ratio] 33.91 kg/m2 Nuno Cantor MD Work Phone: [facility] 03-07-2022 00:02-0400 Body weight 113.4 kg Nuno Cantor MD Work Phone: [facility] 03-07-2022 00:00-0400 Body temperature 99.39 [degF] Nuno Cantor MD Work Phone: [facility] 11-15-2021 11:52-0400 Body temperature 98.29 [degF] Nuno Cantor MD Work Phone: [facility] 11-15-2021 11:52-0400 Diastolic blood pressure 77 mm[Hg] Nuno Cantor MD Work Phone: [facility] 11-15-2021 11:52-0400 Heart rate 81 /min Nuno Cantor MD Work Phone: [facility] 11-15-2021 11:52-0400 Respiratory rate 22 /min Nuno Cantor MD Work Phone: [facility] 11-15-2021 11:52-0400 SaO2% (BldA) [Mass fraction] 95 % Nuno Cantor MD Work Phone: [facility] 11-15-2021 11:52-0400 Systolic blood pressure 135 mm[Hg] Nuno Cantor MD Work Phone: [facility] 11-15-2021 08:18-0400 Body mass index (BMI) [Ratio] 36.77 kg/m2 Nuno Cantor MD Work Phone: [facility] 11-15-2021 08:18-0400 Body weight 122.97 kg Nuno Cantor MD Work Phone: [facility] 11-13-2021 00:00-0400 Body height 182.9 cm Nuno Cantor MD Work Phone: [facility] 10-07-2021 12:19-0500 Body mass index (BMI) [Ratio] 40.69 kg/m2 Ani Delany MODELING AGENT-[employer] RELIEF OPERATOR Work Phone: [facility] 10-07-2021 12:19-0500 Body weight 136.08 kg Ani Delany MODELING AGENT-[employer] RELIEF OPERATOR Work Phone: [facility] 10-07-2021 12:18-0500 Body temperature 98.71 [degF] Ani Delany MODELING AGENT-[employer] RELIEF OPERATOR Work Phone: [facility] 10-07-2021 12:18-0500 Diastolic blood pressure 72 mm[Hg] Ani Delany MODELING AGENT-[employer] RELIEF OPERATOR Work Phone: [facility] 10-07-2021 12:18-0500 Heart rate 93 /min Ani Delany MODELING AGENT-[employer] RELIEF OPERATOR Work Phone: [facility] 10-07-2021 12:18-0500 Respiratory rate 24 /min Ani Delany MODELING AGENT-[employer] RELIEF OPERATOR Work Phone: [facility] 10-07-2021 12:18-0500 SaO2% (BldA) [Mass fraction] 95 % Ani Delany MODELING AGENT-[employer] RELIEF OPERATOR Work Phone: [facility] 10-07-2021 12:18-0500 Systolic blood pressure 154 mm[Hg] Ani Delany MODELING AGENT-[employer]AGE [employer] RELIEF OPERATOR Work Phone: [facility] 04-14-2021 13:15-0400 Body height 182.9 cm Felipe Molina DPM Work Phone: [facility] 04-14-2021 13:15-0400 Body mass index (BMI) [Ratio] 35.94 kg/m2 Felipe Molina DPM Work Phone: [facility] 04-14-2021 13:15-0400 Body weight 120.2 kg Felipe Molina DPM Work Phone: [facility] 04-14-2021 13:15-0400 Diastolic blood pressure 74 mm[Hg] Felipe Molina DPM Work Phone: [facility] 04-14-2021 13:15-0400 Heart rate 78 /min Felipe Molina DPM Work Phone: [facility] 04-14-2021 13:15-0400 Systolic blood pressure 122 mm[Hg] Felipe Molina DPM Work Phone: [facility] 04-04-2021 02:18-0400 Body height 182.9 cm Nuno Cantor MD Work Phone: [facility] 04-04-2021 02:17-0400 Body temperature 97.59 [degF] Nuno Cantor MD Work Phone: [facility] 04-04-2021 02:17-0400 Diastolic blood pressure 57 mm[Hg] Nuno Cantor MD Work Phone: [facility] 04-04-2021 02:17-0400 Heart rate 80 /min Nuno Cantor MD Work Phone: [facility] 04-04-2021 02:17-0400 Respiratory rate 18 /min Nuno Cantor MD Work Phone: [employer] [facility] 04-04-2021 02:17-0400 SaO2% (BldA) [Mass fraction] 95 % Nuno Cantor MD Work Phone: [facility] 04-04-2021 02:17-0400 Systolic blood pressure 120 mm[Hg] Nuno Cantor MD Work Phone: [facility] 03-30-2021 12:47-0400 Body height 182.9 cm Sofía Devine MD Work Phone: [facility] 03-30-2021 12:47-0400 Body mass index (BMI) [Ratio] 35.94 kg/m2 Sofía Devine MD Work Phone: [facility] 03-30-2021 12:47-0400 Body weight 120.2 kg Sofía Devine MD Work Phone: [facility] 03-30-2021 12:46-0400 Body temperature 97.9 [degF] Sofía Devine MD Work Phone: [facility] 03-30-2021 12:46-0400 Diastolic blood pressure 67 mm[Hg] Sofía Devine MD Work Phone: [facility] 03-30-2021 12:46-0400 Heart rate 82 /min Sofía Devine MD Work Phone: [facility] 03-30-2021 12:46-0400 Respiratory rate 18 /min Sofía Devine MD Work Phone: [facility] 03-30-2021 12:46-0400 SaO2% (BldA) [Mass fraction] 96 % Sofía Devine MD Work Phone: [facility] 03-30-2021 12:46-0400 Systolic blood pressure 129 mm[Hg] Sofía Devine MD Work Phone: [facility] 02-02-2021 17:47-0400 Diastolic blood pressure 36 mm[Hg] Saulo Joseph MD Work Phone: [facility] 02-02-2021 17:47-0400 Heart rate 72 /min Saulo Joseph MD Work Phone: [facility] 02-02-2021 17:47-0400 Systolic blood pressure 104 mm[Hg] Saulo Joseph MD Work Phone: [facility] 02-02-2021 15:37-0400 Body temperature 98.2 [degF] Saulo Joseph MD Work Phone: [facility] 02-02-2021 15:37-0400 Respiratory rate 18 /min Saulo Joseph MD Work Phone: [facility] 02-02-2021 15:37-0400 SaO2% (BldA) [Mass fraction] 97 % Saulo Joseph MD Work Phone: [facility] 02-02-2021 15:36-0400 Body height 182.9 cm Saulo Joseph MD Work Phone: [facility] 02-02-2021 15:36-0400 Body mass index (BMI) [Ratio] 36.62 kg/m2 Saulo Joseph MD Work Phone: [facility] 02-02-2021 15:36-0400 Body weight 122.47 kg Saulo Joseph MD Work Phone: [facility] 01-15-2021 11:58-0400 Body mass index (BMI) [Ratio] 36.89 kg/m2 Diego Gupta MD Work Phone: [employer] Work Phone: 01-15-2021 11:58-0400 Body temperature 97.39 [degF] Diego Gupta MD Work Phone: [employer] Work Phone: 01-15-2021 11:58-0400 Body weight 123.38 kg Diego Gupta MD Work Phone: [employer] Work Phone: 01-15-2021 11:58-0400 Diastolic blood pressure 66 mm[Hg] Diego Gupta MD Work Phone: [employer] Work Phone: 01-15-2021 11:58-0400 Heart rate 66 /min Diego Gupta MD Work Phone: [employer] Work Phone: 01-15-2021 11:58-0400 Respiratory rate 16 /min Diego Gupta MD Work Phone: [facility] Work Phone: 01-15-2021 11:58-0400 SaO2% (BldA) [Mass fraction] 99 % Diego Gupta MD Work Phone: [facility] [employer] Work Phone: 01-15-2021 11:58-0400 Systolic blood pressure 107 mm[Hg] Diego Gupta MD Work Phone: [facility] Work Phone: 12-04-2020 13:11-0400 BP Diastolic 64 mm[Hg] [facility] 12-04-2020 13:11-0400 BP Systolic 123 mm[Hg] [facility] 12-04-2020 13:11-0400 Pulse (Heart Rate) 76 /min [facility] 12-04-2020 13:11-0400 Pulse Oximetry 94 % [facility] 12-04-2020 13:11-0400 Respiratory Rate 18 /min [facility] 12-04-2020 07:57-0400 Body Temperature 98.01 [degF] [facility] 12-04-2020 06:00-0400 BMI (Body Mass Index) 38.44 kg/m2 [facility] 12-04-2020 06:00-0400 Body weight 128.55 kg [facility] 12-03-2020 11:28-0400 Height 182.9 cm [facility] 11-01-2020 18:00-0500 BP Diastolic 83 mm[Hg] [facility] 11-01-2020 18:00-0500 BP Systolic 133 mm[Hg] [facility] 11-01-2020 18:00-0500 Pulse (Heart Rate) 63 /min [facility] 03-13-2021 18:00-0500 Pulse Oximetry 97 % [facility] 11-01-2020 16:00-0500 BMI (Body Mass Index) 36.62 kg/m2 [facility] 11-01-2020 16:00-0500 Body Temperature 98.71 [degF] [facility] 11-01-2020 16:00-0500 Body weight 122.47 kg [facility] 11-01-2020 16:00-0500 Height 182.9 cm [facility] 11-01-2020 16:00-0500 Respiratory Rate 18 /min [facility] 09-03-2020 14:09-0500 BMI (Body Mass Index) 38.31 kg/m2 [facility] 09-03-2020 14:09-0500 Body Temperature 95.4 [degF] [facility] 09-03-2020 14:09-0500 Body weight 128.14 kg [facility] 09-03-2020 14:09-0500 BP Diastolic 74 mm[Hg] [facility] 09-03-2020 14:09-0500 BP Systolic 124 mm[Hg] [facility] 09-03-2020 14:09-0500 Height 182.9 cm [facility] 09-03-2020 14:09-0500 Pulse (Heart Rate) 88 /min [facility] 09-03-2020 14:09-0500 Pulse Oximetry 95 % [facility] 09-03-2020 14:09-0500 Respiratory Rate 18 /min [facility] 08-01-2020 09:30-0500 BP Diastolic 70 mm[Hg] [facility] 08-01-2020 09:30-0500 BP Systolic 117 mm[Hg] [facility] 08-01-2020 09:30-0500 Pulse (Heart Rate) 63 /min [facility] 08-01-2020 09:30-0500 Pulse Oximetry 97 % [facility] 08-01-2020 09:30-0500 Respiratory Rate 16 /min [facility] 08-01-2020 08:03-0500 Respiratory rate 0 /min [facility] 08-01-2020 07:45-0500 BMI (Body Mass Index) 35.94 kg/m2 [facility] 08-01-2020 07:45-0500 Body Temperature 98.1 [degF] [facility] 08-01-2020 07:45-0500 Body weight 120.2 kg [facility] 08-01-2020 07:45-0500 Height 182.9 cm [facility] 07-14-2020 11:11-0500 BMI (Body Mass Index) 41.37 kg/m2 [facility] 07-14-2020 11:11-0500 Body Temperature 97.5 [degF] [facility] 07-14-2020 11:11-0500 Body weight 138.35 kg [facility] 07-14-2020 11:11-0500 BP Diastolic 72 mm[Hg] [facility] 07-14-2020 11:11-0500 BP Systolic 124 mm[Hg] [facility] 07-14-2020 11:11-0500 Height 182.9 cm [facility] 07-14-2020 11:11-0500 Pulse (Heart Rate) 92 /min [facility] 07-14-2020 11:11-0500 Pulse Oximetry 94 % [facility] 07-14-2020 11:11-0500 Respiratory Rate 22 /min [facility] 07-09-2020 20:01-0500 Pulse Oximetry 94 % [facility] 07-09-2020 18:00-0500 BP Diastolic 84 mm[Hg] [facility] 07-09-2020 18:00-0500 BP Systolic 160 mm[Hg] [facility] 07-09-2020 18:00-0500 Pulse (Heart Rate) 61 /min [facility] 07-09-2020 18:00-0500 Respiratory Rate 17 /min [facility] 07-09-2020 11:22-0500 Body Temperature 97.2 [degF] [facility] 07-09-2020 05:48-0500 BMI (Body Mass Index) 41.86 kg/m2 [facility] 07-09-2020 05:48-0500 Body weight 140 kg [facility] 07-08-2020 04:45-0500 Height 182.9 cm [facility] 07-08-2020 02:30-0500 Respiratory rate 16 /min [facility] 07-07-2020 23:46-0500 Respiratory rate 16 /min [facility] 06-30-2020 13:25-0500 BMI (Body Mass Index) 38.92 kg/m2 Sb Andino [facility] 06-30-2020 13:25-0500 Body weight 130.18 kg Bs [facility] 06-30-2020 13:25-0500 BP Diastolic 83 mm[Hg] Sb Andino [facility] 06-30-2020 13:25-0500 BP Systolic 138 mm[Hg] Sb Andino [facility] 06-30-2020 13:25-0500 Height 182.9 cm Sb [facility] 06-30-2020 13:25-0500 Pulse (Heart Rate) 89 /min Sb Andino [facility] 04-22-2020 14:04-0400 BMI (Body Mass Index) 38.92 kg/m2 Sb [facility] 04-22-2020 14:04-0400 Body weight 130.18 kg Sb Andino [facility] 04-22-2020 14:04-0400 BP Diastolic 85 mm[Hg] Sb Andino [facility] 04-22-2020 14:04-0400 BP Systolic 138 mm[Hg] Sb Andino [facility] 04-22-2020 14:04-0400 Height 182.9 cm Sb Andino [facility] 04-22-2020 14:04-0400 Pulse (Heart Rate) 86 /min Sb Andino [facility] 01-18-2020 11:25-0400 Body Temperature 98.29 [degF] Nisa Tavares [facility] 01-18-2020 11:25-0400 BP Diastolic 80 mm[Hg] Nisa Tavares [facility] 01-18-2020 11:25-0400 BP Systolic 138 mm[Hg] Nisa Tavares [facility] 01-18-2020 11:25-0400 Pulse (Heart Rate) 89 /min Nisa Tavares [facility] 01-18-2020 11:25-0400 Pulse Oximetry 96 % Nisa Tavares [facility] 01-18-2020 11:25-0400 Respiratory Rate 20 /min Nisa Tavares [facility] 01-18-2020 10:09-0400 Body Temperature 97.5 [degF] [facility] 01-18-2020 10:09-0400 BP Diastolic 82 mm[Hg] [facility] 01-18-2020 10:09-0400 BP Systolic 142 mm[Hg] [facility] 01-18-2020 10:09-0400 Pulse (Heart Rate) 85 /min [facility] 01-18-2020 10:09-0400 Pulse Oximetry 97 % [facility] 01-17-2020 09:11-0400 Body Temperature 98.8 [degF] [facility] 01-17-2020 09:11-0400 BP Diastolic 68 mm[Hg] [facility] 01-17-2020 09:11-0400 BP Systolic 123 mm[Hg] [facility] 01-17-2020 09:11-0400 Pulse (Heart Rate) 98 /min [facility] 01-17-2020 09:11-0400 Pulse Oximetry 97 % [facility] 01-15-2020 13:03-0400 Body Temperature 98.2 [degF] [facility] 01-15-2020 13:03-0400 BP Diastolic 84 mm[Hg] [facility] 01-15-2020 13:03-0400 BP Systolic 146 mm[Hg] [facility] 01-15-2020 13:03-0400 Pulse (Heart Rate) 74 /min [facility] 01-15-2020 13:03-0400 Pulse Oximetry 97 % [facility] 01-15-2020 13:03-0400 Respiratory Rate 16 /min [facility] 01-13-2020 18:01-0400 Body Temperature 99.3 [degF] Harriscameron HernándezAlicia [facility] 01-13-2020 18:01-0400 Pulse (Heart Rate) 90 /min Harris Vargas [facility] 01-13-2020 18:01-0400 Pulse Oximetry 95 % Harris Vargas [facility] 01-13-2020 18:01-0400 Respiratory Rate 14 /min Harris Vargas [facility] 01-11-2020 11:12-0400 Body Temperature 98.4 [degF] [facility] 11:12-0400 BP Diastolic 72 mm[Hg] [facility] 01-11-2020 11:12-0400 BP Systolic 126 mm[Hg] [facility] 01-11-2020 11:12-0400 Pulse (Heart Rate) 64 /min [facility] 01-11-2020 11:12-0400 Pulse Oximetry 96 % [facility] 01-11-2020 11:12-0400 Respiratory Rate 18 /min [facility] 01-10-2020 11:32-0400 Body Temperature 98.1 [degF] [facility] 01-10-2020 11:32-0400 BP Diastolic 75 mm[Hg] [facility] 01-10-2020 11:32-0400 BP Systolic 132 mm[Hg] [facility] 01-10-2020 11:32-0400 Pulse (Heart Rate) 75 /min [facility] 01-10-2020 11:32-0400 Pulse Oximetry 97 % Leandro Sanchez [facility] 01-09-2020 10:55-0400 Body Temperature 98.4 [degF] [facility] 01-09-2020 10:55-0400 BP Diastolic 84 mm[Hg] [facility] 01-09-2020 10:55-0400 BP Systolic 142 mm[Hg] [facility] 01-09-2020 10:55-0400 Pulse (Heart Rate) 88 /min [facility] 01-09-2020 10:55-0400 Pulse [facility]ximetry 98 % [facility] 01-09-2020 10:55-0400 Respiratory Rate 16 /min [facility] 01-08-2020 20:06-0400 Respiratory Rate 20 /min Sofía Dukes [facility] 01-08-2020 16:28-0400 Body Temperature 97.7 [degF] Sofía Dukes [facility] 01-08-2020 16:28-0400 BP Diastolic 76 mm[Hg] Sofía Dukes [facility] 01-08-2020 16:28-0400 BP Systolic 150 mm[Hg] Sofía Dukes [facility] 01-08-2020 16:28-0400 Pulse (Heart Rate) 70 /min Sofía Dukes [facility] 01-08-2020 16:28-0400 Pulse Oximetry 96 % Sofía Dukes [facility] 01-08-2020 05:54-0400 BMI (Body Mass Index) 38.96 kg/m2 Sofía Dukes [facility] 01-08-2020 05:54-0400 Body weight 130.3 kg Sofía Dukes [facility] 01-08-2020 05:54-0400 Height 182.9 cm Sofía Dukes [facility] 01-04-2020 14:51-0400 BMI (Body Mass Index) 35.26 kg/m2 [facility] 01-04-2020 14:51-0400 Body weight 117.94 kg [facility] 01-04-2020 14:51-0400 BP Diastolic 89 mm[Hg] [facility] 01-04-2020 14:51-0400 BP Systolic 152 mm[Hg] [facility] 01-04-2020 14:51-0400 Height 182.9 cm [facility] 01-04-2020 14:51-0400 Pulse (Heart Rate) 83 /min [facility] 01-04-2020 14:51-0400 Pulse Oximetry 92 % [facility] 11-06-2019 21:28-0400 Pulse Oximetry 94 % [facility] [place] 11-06-2019 19:17-0400 Body Temperature 97.81 [degF] [facility] [place] 11-06-2019 19:17-0400 BP Diastolic 74 mm[Hg] [facility] [place] 11-06-2019 19:17-0400 BP Systolic 137 mm[Hg] [facility] [place] 11-06-2019 19:17-0400 Pulse (Heart Rate) 81 /min [facility] [place] 11-06-2019 19:17-0400 Respiratory Rate 20 /min [place] 11-06-2019 05:36-0400 BMI (Body Mass Index) 38.41 kg/m2 [place] 11-06-2019 05:36-0400 Body weight 128.46 kg [place] 11-06-2019 05:36-0400 Height 182.9 cm [place] 10-30-2019 14:43-0400 BMI (Body Mass Index) 41.15 kg/m2 [facility] 10-30-2019 14:43-0400 Body weight 137.62 kg [facility] 10-30-2019 14:43-0400 BP Diastolic 70 mm[Hg] [facility] 10-30-2019 14:43-0400 BP Systolic 112 mm[Hg] [facility] 10-30-2019 14:43-0400 Height 182.9 cm [facility] 10-30-2019 14:43-0400 Pulse (Heart Rate) 85 /min [facility] 10-30-2019 14:43-0400 Pulse Oximetry 96 % [facility] 10-30-2019 14:43-0400 Respiratory Rate 16 /min [facility] 04-05-2019 05:32-0400 BP Diastolic 80 mm[Hg] [facility] 04-05-2019 05:32-0400 BP Systolic 130 mm[Hg] [facility] 04-05-2019 05:32-0400 Pulse (Heart Rate) 58 /min [facility] 04-05-2019 05:32-0400 Pulse Oximetry 97 % [facility] 04-05-2019 05:32-0400 Respiratory Rate 22 /min [facility] 04-03-2019 10:38-0400 BP Diastolic 55 mm[Hg] [facility] 04-03-2019 10:38-0400 BP Systolic 140 mm[Hg] [facility] 04-03-2019 10:38-0400 Pulse (Heart Rate) 65 /min [facility] 04-03-2019 10:38-0400 Pulse Oximetry 99 % [facility] 04-03-2019 10:38-0400 Respiratory Rate 18 /min [facility] 04-03-2019 08:00-0400 Body Temperature 98.49 [degF] [facility] 11-06-2018 11:16-0400 BMI (Body Mass Index) 39.77 kg/m2 [facility] 11-06-2018 11:16-0400 Body Temperature 98.2 [degF] [facility] 11-06-2018 11:16-0400 BP Diastolic 68 mm[Hg] [facility] 11-06-2018 11:16-0400 BP Systolic 124 mm[Hg] [facility] 11-06-2018 11:16-0400 Height 182.9 cm [facility] 11-06-2018 11:16-0400 Pulse (Heart Rate) 84 /min [facility] 11-06-2018 11:16-0400 Pulse Oximetry 97 % [facility] 11-06-2018 11:16-0400 Respiratory Rate 16 /min [facility] 11-06-2018 11:16-0400 Weight 133 kg [facility] 10-06-2018 08:50-0500 BMI (Body Mass Index) 37.97 kg/m2 Sb [facility] 10-06-2018 08:50-0500 BP Diastolic 65 mm[Hg] Sb [facility] 10-06-2018 08:50-0500 BP Systolic 111 mm[Hg] Sb [facility] 10-06-2018 08:50-0500 Height 182.9 cm Sb [facility] 10-06-2018 08:50-0500 Pulse (Heart Rate) 63 /min Sb [facility] 10-06-2018 08:50-0500 Weight 127.01 kg Sb [facility] 09-15-2018 11:19-0500 BMI (Body Mass Index) 37.97 kg/m2 Sb [facility] 09-15-2018 11:19-0500 BP Diastolic 82 mm[Hg] Sb [facility] 09-15-2018 11:19-0500 BP Systolic 138 mm[Hg] Sb [facility] 09-15-2018 11:19-0500 Height 182.9 cm Sb [facility] 09-15-2018 11:19-0500 Pulse (Heart Rate) 80 /min Sbkendra Andino [facility] 09-15-2018 11:19-0500 Weight 127.01 kg Sb Andino [facility] 07-31-2018 10:31-0500 BMI (Body Mass Index) 37.97 kg/m2 [facility] 07-31-2018 10:31-0500 Body Temperature 97.9 [degF] [facility] 07-31-2018 10:31-0500 Height 182.9 cm [facility] 07-31-2018 10:31-0500 Pulse (Heart Rate) 80 /min [facility] 07-31-2018 10:31-0500 Pulse Oximetry 94 % [facility] 07-31-2018 10:31-0500 Weight 127.01 kg [facility] 03-31-2018 10:13-0400 BMI (Body Mass Index) 38.79 kg/m2 Sb [facility] 03-31-2018 10:13-0400 BP Diastolic 84 mm[Hg] Sb Andino [facility] 03-31-2018 10:13-0400 BP Systolic 128 mm[Hg] Sb [facility] 03-31-2018 10:13-0400 Height 182.9 cm Sb [facility] 03-31-2018 10:13-0400 Pulse (Heart Rate) 71 /min Sb [facility] 03-31-2018 10:13-0400 Weight 129.73 kg Sb [facility] 03-07-2018 14:16-0400 BMI (Body Mass Index) 37.89 kg/m2 [facility]-07-2018 14:16-0400 BP Diastolic 77 mm[Hg] [facility] 03-07-2018 14:16-0400 BP Systolic 127 mm[Hg[facility] 03-07-2018 14:16-0400 Pulse (Heart Rate) 106 /min [facility]-07-2018 14:16-0400 Weight 126.73 [facility] En[facility] Encounter Date Encounter Type Care Provider Facility Start: 07-01-2025 ambulatory ANI WORLEY [facility] Ambulatory Start: 06-30-2025 Evaluation and manag ement of inpatient [facility] Start: 06-28-2025 End: 06-28-2025 Refill Merry Barba LPN [facility] Comment on above: Abscess of knee, rig ht (Primary Dx); History of total right knee replacement Start: 06-21-2025 End: 06-21-2025 Admission to same day surgery center Sofía Dukes MD Work Phone: [facility] Comment on above: Abscess of knee, rig ht (Primary Dx); History of total right knee replacement Start: 06-20-2025 End: 06-20-2025 Postop follow up visit related to original px Sofía Dukes MD Work Phone: [facility] Comment on above: Abscess of knee, rig ht (Primary Dx) Start: 06-20-2025 End: 06-20-2025 ambulatory [facility] Start: 05-30-2025 End: 05-30-2025 Postop follow up visit related to original px Sofía Dukes MD Work Phone: [facility] Comment on above: Abscess of knee, rig ht (Primary Dx) Start: 05-30-2025 End: 05-30-2025 ambulatory [facility] Start: 05-17-2025 ambulatory [facility] Start: 05-11-2025 End: 05-16-2025 Evaluation and management of inpatient Rosaline Arreaga DO Work Phone: [facility] Start: 05-09-2025 End: 05-09-2025 Office outpatient new 30 minutes Daniel Hammer MD Work Phone: [facility] Comment on above: Effusion of right kn ee (Primary Dx); Synovitis; Abscess of knee, right; History of total right knee replacement Start: 05-09-2025 End: 05-09-2025 Orders Only Merry Barba LPN [facility] Comment on above: Effusion of right kn ee (Primary Dx); Synovitis; Abscess of knee, right; History of total right knee replacement Start: 04-29-2025 End: 04-29-2025 Transcribe Orders Ani Worley [employer]PERATOR Work Phone: [facility] Comment on above: 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, unspecified laterality, unspecified ulceration site (HCC) (Primary Dx) Start: 04-02-2025 End: 04-05-2025 ambulatory [facility] Start: 04-02-2025 End: 04-05-2025 Evaluation and management of inpatient Maury Garcia DO Work Phone: [facility] Start: 02-15-2025 End: 02-15-2025 Evaluation and management of inpatient [facility] Start: 02-11-2025 End: 02-21-2025 Evaluation and management of inpatient [facility] Start: 01-04-2025 End: 01-04-2025 Office outpatient visit 15 minutes Cecilia SANTANAM Work Phone: [facility] Comment on above: Edema of both lower extremities [R60.0] (Primary Dx) Start: 01-04-2025 End: 01-04-2025 ambulatory [facility] Start: 01-02-2025 End: 01-02-2025 Office outpatient new 45 minutes Ani Worley [employer]IEF OPERATOR Work Phone: [facility] Comment on above: Venous congestion (P rimary Dx); Edema of both lower extremities; Pulmonary hypertension (HCC); Skin ulcer of left lower leg, limited to breakdown of skin (HCC); Obesity (BMI 30-39.9) Start: 01-02-2025 End: 01-02-2025 ambulatory [facility] Start: 12-25-2024 End: 12-25-2024 Transcribe Orders Ani Worley [employer]IEF OPERATOR Work Phone: [facility] Comment on above: PVD (peripheral vasc ular disease) (Primary Dx) Start: 12-24-2024 End: 12-24-2024 Documentation procedure Margot Gallegos RN [facility] Start: 12-21-2024 End: 12-21-2024 [facility] Work Phone: [facility] Comment on above: Skin ulcer of planta r aspect of right foot with necrosis of muscle (HCC) (Primary Dx) Start: 12-21-2024 End: 12-21-2024 ambulatory [facility] Start: 12-20-2024 End: 12-20-2024 Transcribe Orders Ani Worley [employer]IEF OPERATOR Work Phone: [facility] Comment on above: Disease of vein (Griselda gunderson Dx) Start: 11-23-2024 End: 11-23-2024 [facility] Start: 11-23-2024 End: 11-23-2024 [facility] Comment on above: Skin ulcer of right lower leg with fat layer exposed (HCC) (Primary Dx); Skin ulcer of left lower leg with fat layer exposed (HCC); Skin ulcer of plantar aspect of right foot with necrosis of muscle (HCC) Start: 11-16-2024 End: 11-16-2024 [facility] Start: 11-09-2024 End: 11-09-2024 [facility] Start: 10-31-2024 End: 10-31-2024 Transcribe Orders Ani Worley [employer]IEF OPERATOR Work Phone: [facility] Comment on above: Muscle weakness (Griselda neptali Dx) Start: 10-18-2024 End: 10-18-2024 Orders Only Shahrzad Hodges RN [facility] Comment on above: Compression fracture of T7 vertebra, initial encounter (HCC) (Primary Dx) Start: 10-15-2024 Critical care ill/in jured patient init 30-74 min Jose Lozano MD Work Phone: [facility] Start: 10-15-2024 End: 10-24-2024 Evaluation and management of inpatient Jose Lozano MD Work Phone: [facility] Start: 07-05-2024 ambulatory TAWANDA MORGAN [facility] Start: 07-02-2024 End: 07-05-2024 Evaluation and management of inpatient Jose Lozano MD Work Phone: [facility] Start: 04-27-2024 ambulatory [facility] Start: 04-09-2024 ambulatory [facility] Start: 03-02-2024 ambulatory [facility] Start: 01-17-2024 End: 01-17-2024 Office outpatient visit 25 minutes ALEXEY Radford DPM Work Phone: [facility] Comment on above: Midfoot collapse of right lower extremity (Primary Dx); Pes planus of both feet; Type 2 diabetes mellitus without complication, without long-term current use of insulin (HCC); Peripheral vascular disease (HCC); Arthritis of midfoot, unspecified laterality; Chronic venous hypertension, unspecified laterality Start: 12-22-2023 Transcribe Orders Clint Acuna [facility] Comment on above: Cellulitis, unspecif ied cellulitis site (Primary Dx) Encounter for screen ing colonoscopy (Primary Dx) Start: 10-10-2023 End: 06-18-2024 Evaluation and management of inpatient Reg Hart[facility] Start: 09-19-2023 End: 09-19-2023 Emergency department patient visit F[facility] Start: 09-18-2023 End: 09-18-2023 Emergency department patient visit [facility] Start: 09-09-2023 End: 09-09-2023 Postop follow up visit related to original px Cecilia Gonzales DPM Work Phone: [facility] Comment on above: Chronic ulcer of rig ht leg with fat layer exposed (HCC) (Primary Dx) Start: 09-02-2023 End: 09-02-2023 Postop follow up visit related to original px Cecilia Gonzales DPM Work Phone: [facility] Comment on above: Chronic ulcer of rig ht leg with fat layer exposed (HCC) (Primary Dx) Start: 08-26-2023 End: 08-26-2023 Postop follow up visit related to original px Cecilia Donna Lindar DPM Work Phone: [facility] Comment on above: Chronic ulcer of rig ht leg with fat layer exposed (HCC) (Primary Dx) Start: 08-19-2023 End: 08-19-2023 Patient encounter procedure Cecilia Lindar DPM Work Phone: [facility] Comment on above: Chronic ulcer of lef t leg with fat layer exposed (HCC) (Primary Dx); 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) Start: 07-29-2023 End: 08-11-2023 Evaluation and management of inpatient Kash Majano MD Work Phone: [facility] Start: 07-29-2023 End: 07-29-2023 Office outpatient visit 25 minutes Cecilia Gonzales DPM Work Phone: [facility] Comment on above: Abscess of right kne e (Primary Dx); Skin ulcer of right knee with fat layer exposed (HCC); Wound of right leg, subsequent encounter; Ulcer of left lower extremity with fat layer exposed (HCC) Start: 07-19-2023 Documentation procedure Daria dumas LPN [facility] Start: 07-15-2023 End: 07-15-2023 Office outpatient visit 15 minutes Cecilia Lindar DPM Work Phone: [facility] Comment on above: Ulcer of left lower extremity with fat layer exposed (HCC) (Primary Dx); Wound of right leg, subsequent encounter Start: 07-08-2023 End: 07-08-2023 Patient encounter procedure Cecilia Lindar DPM Work Phone: [facility] Comment on above: Ulcer of left lower extremity with fat layer exposed (HCC) (Primary Dx); Wound of right leg, subsequent encounter Start: 07-01-2023 End: 07-01-2023 Office outpatient visit 15 minutes Cecilia Gonzales DPM Work Phone: [facility] Comment on above: Ulcer of left lower extremity with fat layer exposed (HCC) (Primary Dx); Wound of right leg, subsequent encounter Start: 06-17-2023 End: 06-17-2023 Postop follow up visit related to original px [facility] Work Phone: [facility] Comment on above: Leg hematoma, right, sequela (Primary Dx); Leg hematoma, right, initial encounter; Ulcer of left lower extremity with fat layer exposed (HCC) Start: 06-11-2023 Documentation procedure Nathan Collins MD Work Phone: [facility] Comment on above: Admission H&P Start: 05-30-2023 End: 05-31-2023 Emergency department patient visit [facility] Start: 05-24-2023 Documentation procedure Nathan Collins MD Work Phone: [facility] Comment on above: Admission H&P Start: 05-17-2023 End: 05-17-2023 Emergency department patient visit [facility] Start: 05-02-2023 ambulatory [facility] Start: 04-26-2023 ambulatory [facility] Start: 04-26-2023 End: 04-26-2023 Clinical Support Encounter Nathan Hayden MD Work Phone: [facility] Comment on above: Pressure ulcer of ri ght foot, stage 3 (Primary Dx); Venous stasis ulcer of right lower leg with edema of right lower leg; Lymphedema; Chronic venous insufficiency; Venous stasis ulcer of left lower leg with edema of left lower leg Start: 04-18-2023 ambulatory [facility] Start: 04-18-2023 Encounter for genera l adult medical examination without abnormal findings NATHAN HAYDEN [facility] Start: 04-18-2023 End: 04-18-2023 Office outpatient visit 15 minutes Nathan Hayden MD Work Phone: [facility] Infect[facility] Disease Comment on above: Pancytopenia (Primar y Dx); Chronic hepatitis C without hepatic coma; Wound of right lower extremity, subsequent encounter; Left leg cellulitis; Alcoholic cirrhosis, unspecified whether ascites present; Obesity (BMI 30-39.9); Healthcare maintenance; Hepatitis B core antibody positive; Housing instability Start: 04-18-2023 End: 04-18-2023 Patient encounter status Nathan Hayden MD Work Phone: [facility] Start: 04-12-2023 ambulatory [facility] Start: 04-07-2023 ambulatory [facility] Start: 04-07-2023 End: 04-07-2023 Office outpatient visit 15 minutes Nathan Hayden MD Work Phone: [facility] Infect[facility] Disease Comment on above: Left leg cellulitis (Primary Dx); Close exposure to COVID-19 virus; Chronic hepatitis C without hepatic coma; Wound of right lower extremity, subsequent encounter; Pancytopenia; Alcoholic cirrhosis, unspecified whether ascites present; Healthcare maintenance; Obesity (BMI 30-39.9) Start: 04-07-2023 End: 04-07-2023 Patient encounter status Nathan Hayden MD Work Phone: [facility] Start: 03-31-2023 ambulatory [facility] Start: 03-31-2023 End: 03-31-2023 Office outpatient visit 25 minutes Nathan Hayden MD Work Phone: [facility] Comment on above: Wound of right lower extremity, subsequent encounter (Primary Dx); Chronic hepatitis C without hepatic coma; Pancytopenia; MSSA (methicillin susceptible Staphylococcus aureus) infection; Alcoholic cirrhosis, unspecified whether ascites present; Left leg cellulitis Start: 03-23-2023 Documentation procedure Nathan Collins MD Work Phone: [facility] Comment on above: H&P Admission Start: 03-17-2023 End: 03-22-2023 Evaluation and management of inpatient [facility] Start: 03-16-2023 End: 03-22-2023 Evaluation and management of inpatient Power Nelson MD Work Phone: [facility] Comment on above: Bilateral cellulitis of lower leg Start: 03-16-2023 End: 03-16-2023 Emergency department patient visit Shai Leonard MD Work Phone: [facility] Emergency Department Start: 03-11-2023 ambulatory [facility] Start: 03-01-2023 ambulatory [facility] Start: 02-27-2023 End: 03-03-2023 Evaluation and management of inpatient [facility] Start: 02-26-2023 End: 02-27-2023 Evaluation and management of inpatient Shai Leonard MD Work Phone: [facility] Emergency Department Comment on above: Cellulitis and absce ss of left lower extremity Start: 02-21-2023 ambulatory [facility] Start: 02-15-2023 ambulatory AMI L JAMIE [facility] Start: 02-15-2023 ambulatory [facility] Start: 02-15-2023 End: 02-15-2023 Office outpatient visit 25 minutes Marie Ayala MODELING AGENT-PACKAGE [employer] RELIEF OPERATOR Work Phone: [facility] Comment on above: Venous stasis ulcer of right lower leg with edema of right lower leg (Primary Dx); Pressure ulcer of right foot, stage 3; Chronic venous insufficiency; Lymphedema Start: 02-08-2023 ambulatory [facility] Start: 02-08-2023 End: 02-08-2023 Office outpatient new 45 minutes Kristi Bryan DPM Work Phone: [facility] Podiatry Comment on above: Mass of right foot ( Primary Dx); Bursitis of right foot; Subluxation of foot joint, right, initial encounter Start: 02-08-2023 ambulatory [facility] Start: 02-08-2023 ambulatory [facility] Start: 02-08-2023 End: 02-08-2023 Office outpatient visit 25 minutes Marie Ayala MODELING AGENT-PACKAGE [employer] RELIEF OPERATOR Work Phone: [facility] Comment on above: Venous stasis ulcer of right lower leg with edema of right lower leg (Primary Dx); Chronic venous insufficiency; Lymphedema; Pressure ulcer of right foot, stage 3; Foot mass, right Start: 02-01-2023 [facility] Start: 01-26-2023 End: 01-26-2023 Office outpatient visit 15 minutes Nathan Hayden MD Work Phone: [facility] Infectious Disease Comment on above: Chronic hepatitis C without hepatic coma (Primary Dx); Hepatitis B core antibody positive; Pancytopenia; Healthcare maintenance; Cirrhosis of liver without ascites, unspecified hepatic cirrhosis type; Alcoholic cirrhosis, unspecified whether ascites present; Hand weakness; Wound of right lower extremity, subsequent encounter Start: 01-26-2023 End: 01-26-2023 Patient encounter status Nathan Hayden MD Work Phone: [facility] Infectious [facility] Start: 01-25-2023 ambulatory [facility] Start: 01-25-2023 End: 01-25-2023 Office outpatient visit 25 minutes Marie Ayala MODELING AGENT-PACKAGE [employer] RELIEF OPERATOR [facility] [place] [facility] Comment on above: Venous stasis ulcer of right lower leg with edema of right lower leg (Primary Dx); Chronic venous insufficiency; Lymphedema; Foot mass, right Start: 01-25-2023 ambulatory [facility] Start: 01-18-2023 ambulatory [facility] Start: 01-18-2023 End: 01-18-2023 Office outpatient visit 25 minutes Marie Ayala MODELING AGENT-[employer]AGE [employer] RELIEF OPERATOR Work Phone: [facility] Comment on above: Venous stasis ulcer of right lower leg with edema of right lower leg (Primary Dx); Chronic venous insufficiency; Lymphedema Start: 01-11-2023 ambulatory [facility] Start: 01-11-2023 ambulatory [facility] Start: 01-04-2023 [facility]ulatory [facility] Start: 12-28-2022 ambulatory [facility] Start: 12-28-2022 End: 12-28-2022 Office outpatient visit 25 minutes Marie Ayala MODELING AGENT-PACKAGE [employer] RELIEF OPERATOR [facility]: [facility] [place] [facility] Comment on above: Venous stasis ulcer of right lower leg with edema of right lower leg (Primary Dx); Chronic venous insufficiency; Lymphedema; Fungal dermatitis Start: 12-21-2022 ambulatory [facility] Start: 12-21-2022 End: 12-21-2022 Office outpatient visit 25 minutes Marie Saucedo Jamie MODELING AGENT-[employer]AGE [employer] RELIEF OPERATOR Work Phone: [facility] Comment on above: Venous stasis ulcer of right lower leg with edema of right lower leg (Primary Dx); Chronic venous insufficiency; Lymphedema Start: 12-14-2022 ambulatory [facility] Start: 12-14-2022 ambulatory [facility] Start: 12-14-2022 End: 12-14-2022 Office outpatient visit 25 minutes Marie Saucedo Jamie MODELING AGENT-[employer]AGE [employer] RELIEF OPERATOR Work Phone: [facility] Comment on above: Venous stasis ulcer of right lower leg with edema of right lower leg (Primary Dx); Chronic venous insufficiency; Lymphedema Start: 12-08-2022 End: 12-08-2022 Subsequent hospital visit by physician Nathan Hayden MD Work Phone: [facility] CT Scan Comment on above: Arrived Start: 12-08-2022 End: 12-08-2022 Office outpatient visit 25 minutes Nathan Hayden MD Work Phone: [facility] Infect[facility] Disease Comment on above: Chronic hepatitis C without hepatic coma (Primary Dx); Hepatitis B core antibody positive; Pancytopenia; Cirrhosis of liver without ascites, unspecified hepatic cirrhosis type; Healthcare maintenance; Obesity (BMI 30-39.9) Start: 12-08-2022 End: 12-08-2022 Patient encounter status Nathan Hayden MD Work Phone: [facility] Infect[facility] Start: 12-07-2022 ambulatory [facility] Start: 11-30-2022 ambulatory [facility] Start: 11-30-2022 End: 11-30-2022 Clinical Support Encounter Marie Ayala MODELING AGENT-PACKAGE [employer] RELIEF OPERATOR Work Phone: [facility] Comment on above: Venous stasis ulcer of right lower leg with edema of right lower leg (Primary Dx); Chronic venous insufficiency Start: 11-29-2022 ambulatory [facility] Start: 11-25-2022 ambulatory [facility] Start: 11-25-2022 End: 11-25-2022 Office outpatient new 45 minutes Bridget Dahl MD Work Phone: [facility] Comment on above: Pancytopenia (Primar y Dx); Thrombocytopenia; Leukopenia, unspecified type; Microcytic hypochromic anemia; Chronic hepatitis C without hepatic coma; 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; Hepatosplenomegaly Start: 11-23-2022 ambulatory [facility] Start: 11-23-2022 End: 11-23-2022 Office outpatient visit 25 minutes Marie Ayala MODELING AGENT-PACKAGE [employer] RELIEF OPERATOR Work Phone: [facility] Comment on above: Venous stasis ulcer of right lower leg with edema of right lower leg (Primary Dx); Chronic venous insufficiency; Lymphedema Start: 11-16-2022 ambulatory [facility] Start: 11-16-2022 End: 11-16-2022 Office outpatient visit 25 minutes Marie Ayala MODELING AGENT-PACKAGE [employer] RELIEF OPERATOR Work Phone: [facility] Comment on above: Venous stasis ulcer of right lower leg with edema of right lower leg (Primary Dx); Chronic venous insufficiency; Lymphedema Start: 11-11-2022 ambulatory [facility] Start: 11-09-2022 ambulatory [facility] Start: 11-03-2022 End: 11-03-2022 Office outpatient visit 25 minutes Nathan Hayden MD Work Phone: [facility] Comment on above: Wound of right lower extremity, subsequent encounter (Primary Dx); Chronic hepatitis C without hepatic coma; Hepatitis B core antibody positive; Pancytopenia; Obesity (BMI 30-39.9); Healthcare maintenance; Cirrhosis of liver without ascites, unspecified hepatic cirrhosis type Start: 11-03-2022 End: 11-03-2022 Patient encounter status Nathan Hayden MD Work Phone: [facility] Start: 10-21-2022 End: 10-21-2022 Subsequent hospital visit by physician Antony Suarez DO Work Phone: [facility] Start: 09-29-2022 End: 09-29-2022 Office outpatient visit 25 minutes Nathan Hayden MD Work Phone: [facility] Comment on above: Chronic hepatitis C without hepatic coma (Primary Dx); Hepatitis B core antibody positive; Pancytopenia; Healthcare maintenance; Obesity (BMI 30-39.9); Cirrhosis of liver without ascites, unspecified hepatic cirrhosis type; Wound of right lower extremity, subsequent encounter Start: 09-29-2022 End: 09-29-2022 Patient encounter status Nathan Hayden MD Work Phone: [facility] Start: 08-26-2022 End: 08-26-2022 Office outpatient new 45 minutes Antony Suarez DO Work Phone: [facility] G[facility] Comment on above: Cirrhosis of liver w ithout ascites, unspecified hepatic cirrhosis type (Primary Dx); Chronic hepatitis C without hepatic coma Start: 08-25-2022 End: 08-25-2022 Office outpatient visit 25 minutes Nathan Hayden MD Work Phone: [facility] Comment on above: Chronic hepatitis C without hepatic coma (Primary Dx); Hepatitis B core antibody positive; Healthcare maintenance; Alcoholic cirrhosis, unspecified whether ascites present; Pancytopenia; Obesity (BMI 30-39.9) Start: 08-25-2022 End: 08-25-2022 Patient encounter status Nathan Hayden MD Work Phone: [facility] Start: 07-07-2022 End: 07-07-2022 Office outpatient visit 15 minutes Nathan Hayden MD Work Phone: [facility] Comment on above: Chronic hepatitis C without hepatic coma (Primary Dx); Hepatitis B core antibody positive; Healthcare maintenance; Obesity (BMI 30-39.9); Pancytopenia; Alcoholic cirrhosis, unspecified whether ascites present Start: 07-07-2022 End: 07-07-2022 Patient encounter status Nathan Hayden MD Work Phone: [facility] Start: 06-07-2022 End: 06-07-2022 Office outpatient visit 15 minutes Pattie Roman MODELING AGENT-PACKAGE [employer] RELIEF OPERATOR [facility] Comment on above: Referral of patient (Primary Dx); Chronic viral hepatitis B without delta agent and 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; Chronic hepatitis C without hepatic coma Start: 05-12-2022 End: 05-12-2022 Emergency department patient visit Ani Worley MODELING AGENT-PACKAGE LINE RELIEF OPERATOR Work Phone: [facility] Emergency Department Start: 05-03-2022 End: 05-03-2022 Emergency department patient visit [facility] Start: 05-03-2022 End: 05-03-2022 Emergency department patient visit Zhao Abraham MD Work Phone: [facility] ED Comment on above: Ulcer of right foot, unspecified ulcer stage (HCC) (Primary Dx); Lymphedema of both lower extremities Start: 04-20-2022 End: 04-21-2022 Evaluation and management of inpatient Carolina Solis MD Work Phone: [facility] Start: 03-06-2022 End: 03-07-2022 Emergency department patient visit Nuno Cantor MD Work Phone: [facility] Emergency Department Start: 11-12-2021 End: 11-15-2021 Evaluation and management of inpatient Nuno Cantor MD Work Phone: [facility] ICU Comment on above: Hypotension Start: 10-07-2021 End: 10-07-2021 Emergency department patient visit Ani Worley MODELING AGENT-PACKAGE [employer] RELIEF OPERATOR Work Phone: [facility] Emergency Department Start: 06-03-2021 End: 06-04-2021 Evaluation and management of inpatient BLANCA PINEDA MATEO [facility] Start: 04-14-2021 End: 04-14-2021 Office outpatient new 45 minutes Felipe Molina DPM Work Phone: [facility] Comment on above: Acquired varus defor mity of left foot (Primary Dx); Hallux rigidus, acquired, left; Fracture of second toe, left, open, with malunion, subsequent encounter Start: 04-04-2021 End: 04-04-2021 Emergency department patient visit Nuno Cantor MD Work Phone: [facility] Emergency Department Start: 03-30-2021 End: 03-30-2021 Emergency department patient visit Sofía Devine MD Work Phone: [facility] Emergency Department Start: 02-02-2021 End: 02-02-2021 Emergency department patient visit Saluo Joseph MD Work Phone: [facility] Emergency Department Start: 01-15-2021 End: 01-15-2021 Emergency department patient visit DIEGO Moeller NEVADA [facility] Start: 01-15-2021 End: 01-15-2021 Emergency department patient visit Diego Gupta MD Work Phone: [facility] ED Start: 12-03-2020 End: 12-04-2020 Evaluation and management of inpatient Maury Garcia Work Phone: [facility] Med [facility]urg Start: 11-01-2020 End: 11-01-2020 Emergency department patient visit Christopher Ng Work Phone: [facility] Emergency Department Start: 10-29-2020 End: 10-29-2020 Orders Only Mona Jung Work Phone: [facility] Start: 09-03-2020 End: 09-03-2020 Office outpatient visit 25 minutes Palmer Givens Work Phone: [facility] Comment on above: Pancytopenia (Primar y Dx); Atrial fibrillation, unspecified type; Essential hypertension; Chronic obstructive pulmonary disease, unspecified COPD type; Chronic pain syndrome Start: 08-01-2020 End: 08-01-2020 Emergency department patient visit Saulo Joseph Work Phone: [facility] Emergency Department Comment on above: Suspected COVID-19 v irus infection (Primary Dx); Asthma with acute exacerbation, unspecified asthma severity, unspecified whether persistent; Morbid obesity (HCC); H/O CHF; Paroxysmal atrial fibrillation (HCC); Medication refill Start: 07-28-2020 End: 07-28-2020 Documentation procedure Judith Cruz [facility] Start: 07-14-2020 End: 07-14-2020 Office outpatient visit 15 minutes Palmer Givens Work Phone: [facility] Comment on above: Chronic obstructive pulmonary disease with acute exacerbation (Primary Dx); Acute respiratory failure, unspecified whether with hypoxia or hypercapnia; Atrial fibrillation, unspecified type; Essential hypertension; Anemia, unspecified type; Thrombocytopenia; Elevated troponin; Elevated brain natriuretic peptide (BNP) level; Marijuana use Start: 07-11-2020 End: 07-11-2020 Documentation procedure Carina Green Work Phone: [facility] Start: 07-08-2020 End: 07-09-2020 Evaluation and management of inpatient VENANCIO QUIROS [facility] Start: 07-07-2020 End: 07-09-2020 Evaluation and management of inpatient Marisol Vernon Jhon Work Phone: [facility] Comment on above: Acute respiratory fa ilure, unspecified whether with hypoxia or hypercapnia (HCC) (Primary Dx); COPD exacerbation (HCC); Cannabis abuse; Acute exacerbation of chronic obstructive pulmonary disease (COPD) (HCC) Start: 06-30-2020 End: 06-30-2020 Office outpatient visit 15 minutes Sb Andino Work Phone: [facility] Comment on above: Acquired pes planova lgus of right foot (Primary Dx); Arthritis of right foot Start: 04-22-2020 End: 04-22-2020 Subsequent hospital visit by physician Sb Andino Work Phone: [facility] Comment on above: Pain Start: 04-22-2020 End: 04-22-2020 Office outpatient visit 15 minutes Sb Andino Work Phone: [facility] Comment on above: Toe dislocation, lef t, subsequent encounter (Primary Dx); Arthritis of first metatarsophalangeal (MTP) joint of left foot; Acquired pes planovalgus of right foot; Arthritis of right foot Start: 01-30-2020 End: 01-30-2020 Emergency department patient visit Radames Underwood Jam Work Phone: [facility] Start: 01-25-2020 End: 01-25-2020 Home visit Jignesh Gilbert [facility] Comment on above: PT OASIS DISCHARGE SN NON-OASIS/DISC IPLINE DC Start: 01-24-2020 End: 01-24-2020 Home visit Jignesh Gilbert [facility] Comment on above: PT NON-OASIS/DISCIPL INE DISCHARGE Start: 01-23-2020 End: 01-23-2020 Postop follow up visit related to original px Sofía Joaquim Dukes Work Phone: [facility] Comment on above: Status post total ri ght knee replacement (Primary Dx); Primary osteoarthritis of right knee Start: 01-22-2020 End: 01-22-2020 Documentation procedure Daria Dumont [facility] Start: 01-22-2020 End: 01-22-2020 Home visit Rosaline Barba [facility] Comment on above: CRANE MANAGER HH MISSED VISIT Start: 01-18-2020 End: 01-18-2020 Home visit Leandro Sanchez [facility] Comment on above: SOFTWARE SYSTEMS ARCHITECT ROUTINE VISIT SN HH ROUTINE VISIT Start: 01-17-2020 End: 01-17-2020 Home visit Leandro Sanchez [facility] Comment on above: SOFTWARE SYSTEMS ARCHITECT ROUTINE VISIT Start: 01-16-2020 End: 01-16-2020 Documentation procedure Merry Barba [facility] Start: 01-15-2020 End: 01-15-2020 Documentation procedure Daria Dumont [facility] Start: 01-15-2020 End: 01-15-2020 Home visit Pinky Brown [facility] Comment on above: SN HH ROUTINE VISIT SOFTWARE SYSTEMS ARCHITECT MISSED VISIT Start: 01-14-2020 End: 01-14-2020 Home visit Rosaline Barba [facility] Comment on above: TELEPHONE ENCOUNTER Start: 01-13-2020 End: 01-13-2020 Home visit Harris Alicia [facility] Comment on above: SN HH PRN VISIT Start: 01-11-2020 End: 01-11-2020 Documentation procedure Daria Dumont [facility] Start: 01-11-2020 End: 01-11-2020 Home visit Jessenia Juarezessie [facility] Comment on above: CRANE MANAGER HH ROUTINE Start: 01-10-2020 End: 01-10-2020 Home visit Leandro Sanchez [facility] Comment on above: SOFTWARE SYSTEMS ARCHITECT ROUTINE VISIT Start: 01-09-2020 End: 01-09-2020 Home visit Jignesh Pintokitty [facility] Comment on above: PT INITIAL EVALUATIO N SN HH OASIS START OF CARE Start: 01-08-2020 End: 01-08-2020 [facility] Start: 01-08-2020 End: 01-25-2020 Patient encounter procedure SOFÍA DUKES [facility] Start: 01-08-2020 End: 01-08-2020 Subsequent hospital visit by physician Sofía Dukes Work Phone: [facility] Comment on above: S/P total knee arthr oplasty, right (Primary Dx); Primary osteoarthritis of right knee; Primary osteoarthritis of right knee Start: 01-04-2020 End: 01-04-2020 Office outpatient new 60 minutes Sofía Dukes Work Phone: [facility] Comment on above: Essential hypertensi on (Primary Dx); Primary osteoarthritis of right knee Start: 01-03-2020 End: 01-03-2020 Subsequent hospital visit by physician Sofía Dukes Work Phone: [facility] CT Scan Comment on above: Primary osteoarthrit is of right knee Start: 11-06-2019 End: 11-07-2019 Evaluation and management of inpatient MARI HDZ [facility] Start: 11-06-2019 End: 11-07-2019 Evaluation and management of inpatient Anya Burton Chon Work Phone: [facility] Comment on above: Pneumonia of left lo wer lobe due to infectious organism (HCC) (Primary Dx); Influenza A; COPD exacerbation (HCC) Start: 10-30-2019 End: 10-30-2019 Office outpatient visit 15 minutes Palmer Givens Work Phone: [facility] Comment on above: Essential hypertensi on (Primary Dx); SOB (shortness of breath) on exertion; Leg edema Start: 10-26-2019 End: 10-26-2019 Patient encounter procedure Lena Nancy Hill Work Phone: [facility] Comment on above: Tricompartment osteo arthritis of right knee Start: 09-21-2019 End: 09-21-2019 Office outpatient visit 15 minutes Lena Nancy Hill Work Phone: [facility] [place] Comment on above: Tricompartment osteo arthritis of right knee (Primary Dx) Start: 05-28-2019 End: 05-28-2019 Telephone encounter Palmer Givens Work Phone: [facility] Comment on above: Medication Managemen t Start: 05-26-2019 End: 05-26-2019 Refill Palmer Givens Work Phone: [facility] Start: 04-30-2019 End: 04-30-2019 Telephone encounter Palmer Givens Work Phone: [facility] Comment on above: Medication Managemen t Start: 04-27-2019 End: 04-27-2019 Refill Palmer Givens Work Phone: [facility] Start: 04-05-2019 End: 04-05-2019 Emergency department patient visit Bjorn Sin Work Phone: [facility] Start: 04-03-2019 End: 04-03-2019 Emergency department patient visit Kinsey Ignacio Work Phone: [facility] Comment on above: Acute exacerbation o f chronic obstructive pulmonary disease (COPD) (HCC) (Primary Dx) Start: 03-06-2019 End: 03-06-2019 Outside Orders Historical Provider [facility] Start: 03-04-2019 End: 03-04-2019 Emergency department patient visit [facility] Start: 03-01-2019 End: 03-01-2019 Outside Orders Prashanth Armenta Work Phone: [facility] Start: 02-19-2019 End: 02-19-2019 Telephone encounter Palmer Givens Work Phone: [facility] Comment on above: Medication Managemen t Start: 02-07-2019 End: 02-07-2019 Telephone encounter Palmer Givens Work Phone: [facility] Comment on above: Medication Managemen t Start: 02-03-2019 Emergency department patient visit [facility] Start: 11-24-2018 End: 11-24-2018 Telephone encounter Palmer Givens Work Phone: [facility] Comment on above: Medication Managemen t Start: 11-06-2018 End: 11-06-2018 Office outpatient visit 15 minutes Palmer Givens Work Phone: [facility] Comment on above: Chronic obstructive pulmonary disease, unspecified COPD type (Primary Dx) Start: 10-06-2018 End: 10-06-2018 Patient encounter procedure Sb Andino Work Phone: [facility] Start: 10-06-2018 End: 10-06-2018 Office outpatient visit 15 minutes Sb Andino Work Phone: [facility] Comment on above: Toe dislocation, lef t, subsequent encounter (Primary Dx); Arthritis of first metatarsophalangeal (MTP) joint of left foot; Acquired pes planovalgus of right foot; Arthritis of right foot Start: 10-05-2018 End: 10-05-2018 Documentation procedure Monica Condon [facility] Start: 09-15-2018 End: 09-15-2018 Office outpatient visit 15 minutes Sbkendra Andino Work Phone: [facility] Comment on above: Toe dislocation, lef t, subsequent encounter (Primary Dx); Arthritis of first metatarsophalangeal (MTP) joint of left foot Start: 08-01-2018 End: 08-01-2018 Patient encounter procedure Monica Condon [facility] Start: 07-31-2018 End: 07-31-2018 Patient encounter procedure Rashaad Liriano Work Phone: [facility] Comment on above: Knee pain Start: 07-31-2018 End: 07-31-2018 Office outpatient new 20 minutes Rashaad Liriano Work Phone: [facility] Comment on above: Toe dislocation, lef t, subsequent encounter; Osteoarthritis of right knee, unspecified osteoarthritis type; Acquired pes planovalgus of right foot Start: 07-20-2018 Patient encounter procedure Sb Ashkan Andino Facility:[place] Start: 07-20-2018 End: 07-20-2018 Patient encounter procedure Sbkendra Wheatleytodd Andino Work Phone: [facility] Start: 07-10-2018 End: 07-10-2018 Patient encounter Monica Condon [facility] Start: 06-03-2018 Patient encounter procedure Memo Brar Facility:[place] Start: 06-03-2018 End: 06-03-2018 Patient encounter Memo Brar Work Phone: [facility] Start: 05-31-2018 Patient encounter procedure Sb Andino Facility:[place] Start: 05-15-2018 Patient encounter procedure Sb Ashkan Andino Facility:[place] Start: 05-15-2018 End: 05-15-2018 Patient encounter Sb Freitas Thu Work Phone: [facility] Start: 05-12-2018 Patient encounter procedure Memo Brar Facility:[place] Start: 05-12-2018 End: 05-12-2018 Patient encounter Memo Brar Work Phone: [facility] Start: 05-06-2018 Patient encounter procedure Memo Brar Facility:[place] Start: 05-06-2018 End: 05-06-2018 Patient encounter Memo Brar Work Phone: [facility] Start: 04-20-2018 Patient encounter procedure Sb Luther Exten Facility:[place] Start: 04-20-2018 End: 04-20-2018 Patient encounter Sb Freitas Exten Work Phone: [facility] Start: 04-13-2018 Patient encounter procedure Sb L. Exten Facility:[place] Start: 04-08-2018 Patient encounter procedure Memo Brar Facility:[place] Start: 04-08-2018 End: 04-08-2018 Patient encounter Memo Brar Work Phone: [facility] Start: 04-04-2018 Patient encounter Monica Mcdonough [facility] Start: 03-31-2018 Patient encounter procedure Sb L. Exten Facility:[place] Start: 03-31-2018 End: 03-31-2018 Patient encounter Sb Andino Work Phone: [facility] Start: 03-31-2018 End: 03-31-2018 Office consultation new/estab patient 40 min Paulino Rodrigues Work Phone: [facility] Start: 03-11-2018 Patient encounter procedure Memo Brar Facility:[place] Start: 03-08-2018 Patient encounter procedure Paulino Rodrigues Facility:[place] Start: 03-07-2018 Patient encounter procedure Paulino Rodrigues Facility:[place] Start: 03-07-2018 End: 03-07-2018 Patient encounter Paulino Rodrigues Work Phone: [facility] Start: 03-07-2018 End: 03-07-2018 Office outpatient new 30 minutes Palmer Givens Work Phone: [facility] Start: 02-11-2018 Patient encounter procedure Memo Brar Facility:[place] Start: 02-11-2018 End: 02-11-2018 Ambulatory Memo Brar Work Phone: [facility] Start: 01-14-2018 Patient encounter procedure Memo Brar Facility:[place] Start: 01-14-2018 End: 01-14-2018 Ambulatory Memo Brar Work Phone: [facility] Start: 12-30-2017 Patient encounter procedure Memo Brar Facility:[place] Start: 12-30-2017 End: 12-30-2017 Ambulatory Memo Brar Work Phone: [facility] Start: 08-06-2017 End: 08-06-2017 Emergency department patient visit Riaz Lopez Facility:[place] Start: 05-05-2017 End: 05-05-2017 Ambulatory Coleen BrionesFrancesca Neal Work Phone: [facility] Procedures Date Procedure Procedure Detail Performing Clinician Start: 05-16-2025 Glucose measurement Carmen Charles MD Work Phone: Start: 05-16-2025 Glucose measurement Generic [facility] Work Phone: Start: 05-16-2025 Basic metabolic panel calcium total Dee Deborah Deyvi PACKAGE LINE RELIEF OPERATOR Work Phone: Start: 05-15-2025 Glucose measurement Generic [facility] Work Phone: Start: 05-15-2025 Glucose measurement Generic [facility] Work Phone: Start: 05-15-2025 Glucose measurement Generic [facility] Work Phone: Start: 05-15-2025 Glucose measurement Generic [facility] Work Phone: Start: 05-15-2025 Basic metabolic panel calcium total Dee Deborah Deyvi PACKAGE LINE RELIEF OPERATOR Work Phone: Start: 05-15-2025 Drug screen quantitative vancomycin Sorin Simons RP,PharmD Start: 05-14-2025 Glucose measurement [facility] Work Phone: Start: 05-14-2025 Glucose measurement Generic [facility] Work Phone: Start: 05-14-2025 Glucose measurement Generic [facility] Work Phone: Start: 05-14-2025 Glucose measurement Generic [facility] Work Phone: Start: 05-14-2025 Basic metabolic panel calcium total Dee Carnes PACKAGE LINE RELIEF OPERATOR Work Phone: Start: 05-13-2025 Glucose measurement [...] Basic metabolic panel calcium total Dee Carnes PACKAGE LINE RELIEF OPERATOR Work Phone: Start: 05-13-2025 Drug screen quantitative vancomycin Olivia Caicedo PACKAGE LINE RELIEF OPERATOR Work Phone: Start: 05-12-2025 Glucose measurement Generic [facility] Work Phone: Start: 05-12-2025 Glucose measurement Generic [facility] Work Phone: Start: 05-12-2025 Drug tst prsmv instrmnt chem analyzers pr date Dee Carnes PACKAGE LINE RELIEF OPERATOR Work Phone: Start: 05-12-2025 Iadna s aureus methicillin resist amp probe tq Dee Carnes PACKAGE LINE RELIEF OPERATOR Work Phone: Start: 05-12-2025 Glucose measurement Generic [facility] Work Phone: Start: 05-12-2025 Glucose measurement Generic [facility] Work Phone: Start: 05-12-2025 Basic metabolic panel calcium total Dee Carnes PACKAGE LINE RELIEF OPERATOR Work Phone: Start: 05-12-2025 Complete blood count with white cell differential, manual Dee Carnes PACKAGE LINE RELIEF OPERATOR Work Phone: Start: 05-12-2025 Cul bact xcpt urine blood/stool aerobic isol Camron Warrenladi Goyal PA-C Work Phone: Start: 05-11-2025 Comprehensive metabolic panel Camron manzanaresladi OLVERA-Oswaldo Work Phone: Start: 05-11-2025 Complete blood count with white cell differential, manual Camron Dreladi OLVERA-Oswaldo Work Phone: Start: 05-11-2025 Red blood cell morphology Camron Sorensen parag Goyal PA-C Work Phone: Start: 05-11-2025 Radiologic examination knee 1/2 views Camron Goyal PA-C Work Phone: Start: 05-11-2025 End: 05-11-2025 Assay of lactate Camron OLVERA-Oswaldo Work Phone: Start: 05-11-2025 Culture bacterial blood aerobic w/id isolates Camron OLVERA-Oswaldo Work Phone: Start: 04-05-2025 Radiologic exam chest single view Kanchan Jacobs MD Work Phone: Start: 04-05-2025 Basic metabolic panel calcium total Shanae Nunez MD Work Phone: Start: 04-05-2025 Complete blood count with white cell differential, manual Shanae Nunez MD Work Phone: Start: 04-05-2025 Red blood cell morphology Shanae Nunez MD Work Phone: Start: 04-04-2025 Basic metabolic panel calcium total Kj Cox PACKAGE LINE RELIEF OPERATOR Work Phone: Start: 04-04-2025 Complete blood count with white cell differential, manual Kj Libia Cox PACKAGE LINE RELIEF OPERATOR Work Phone: Start: 04-04-2025 Gases blood [...] Start: 04-02-2025 Red blood cell morphology Maury Garcia DO Work Phone: Start: 04-02-2025 Sedimentation rate rbc automated Maury Felipe Garcia DO Work Phone: Start: 04-02-2025 EMS RUN SHEET Generic Ems Provider Start: 12-21-2024 Debridement subcutaneous tissue 20 sq cm/< Cecilia Sabry Janet DPM Work Phone: Start: 11-23-2024 Appl mltlayr grant leg below knee w/ankle foot Cecilia Sabry [place] DPM Work Phone: Start: 10-24-2024 Blood count [...] xcpt urine blood/stool aerobic isol Quyen Franco PACKAGE LINE RELIEF OPERATOR Work Phone: Start: 10-18-2024 Blood count complete auto&auto difrntl wbc Blanca Kerns MD Work Phone: Start: 10-18-2024 C-reactive protein Quyen Franco PACKAGE LINE RELIEF OPERATOR Work Phone: Start: 10-17-2024 Radex spine thoracic 2 views Antonietta Cah ill PA-C Work Phone: Start: 10-17-2024 Non-invas physiologic std extremity art 2 level Quyen Franco PACKAGE LINE RELIEF OPERATOR Work Phone: Start: 10-17-2024 Mri lower extrem oth/thn jt w/o contr matrl Quyen Franco PACKAGE LINE RELIEF OPERATOR Work Phone: Start: 10-17-2024 Hemoglobin glycosylated a1c Quyen Varmaa PACKAGE LINE RELIEF OPERATOR Work Phone: Start: 10-16-2024 Mri spinal canal thoracic w/o contrast matrl Branden Cummings PACKAGE LINE RELIEF OPERATOR Work Phone: Start: 10-16-2024 Basic metabolic panel calcium total Jumana Fink PACKAGE LINE RELIEF OPERATOR Work Phone: Start: 10-15-2024 25 hydroxy includes fractions if performed Jumana Fink PACKAGE LINE RELIEF OPERATOR Work Phone: Start: 10-15-2024 Electrocardiogram Jose [...] Start: 10-15-2024 Red blood cell morphology Jose Moeller Work Phone: Start: 10-15-2024 Gases blood ph [...] Work Phone: Start: 07-03-2024 Glucose measurement Generic [facility] Work Phone: Start: 07-02-2024 [...] Ecg routine ecg w/least 12 lds w/i&r Joes Lozano MD Work Phone: Start: 07-02-2024 Radiologic [...] Phone: Start: 08-10-2023 Comprehensive metabolic panel Ajit Romana s DO Work Phone: Start: 08-10-2023 Red blood [...] Phone: Start: 08-05-2023 Comprehensive metabolic panel Ajit Ramirezi s DO Work Phone: Start: 08-05-2023 Red [...] Phone: Start: 08-03-2023 Comprehensive metabolic panel Ajit Romana s DO Work Phone: Start: 08-03-2023 Glucose [...] Phone: Start: 08-02-2023 Comprehensive metabolic panel Ajit Ramirezi s DO Work Phone: Start: 08-02-2023 Red blood cell morphology Ajit Ramirezis DO Work Phone: Start: 08-01-2023 Glucose measurement [facility] Work Phone: Start: 08-01-2023 Glucose measurement Generic [facility] Work Phone: Start: 08-01-2023 Cul bact xcpt urine blood/stool aerobic isol Kinza Garrett MD Work Phone: Start: 08-01-2023 Comprehensive metabolic panel Ajit Romana s DO Work Phone: Start: 08-01-2023 Red blood cell morphology Ajit Ramirezis DO Work Phone: Start: 08-01-2023 Creatinine blood Lindsey Zhang RP,PharmD Start: 08-01-2023 Drug screen quantitative vancomycin Lindsey Zhang RP,PharmD Start: 07-31-2023 Glucose measurement [facility] Work Phone: Start: 07-31-2023 Glucose measurement Generic [facility] Work Phone: Start: 07-31-2023 Glucose measurement Generic [facility] Work Phone: Start: 07-31-2023 Glucose measurement Generic [facility] Work Phone: Start: 07-31-2023 Basic metabolic panel calcium total Carina Eller PACKAGE LINE RELIEF OPERATOR Work Phone: Start: 07-30-2023 Glucose measurement [facility] Work Phone: Start: 07-30-2023 Glucose measurement Generic [facility] Work Phone: Start: 07-30-2023 End: 07-30-2023 Cul bact xcpt urine blood/stool aerobic isol Ajit Geris DO Work Phone: Start: 07-30-2023 Glucose measurement Generic [facility] Work Phone: Start: 07-30-2023 Sedimentation rate rbc automated Ajit Ramirezis DO Work Phone: Start: 07-30-2023 Glucose measurement [facility] Work Phone: Start: 07-30-2023 C-reactive protein Ajit Geris DO Work Phone: Start: 07-30-2023 Red blood cell morphology Moncho Joaquin MD Work Phone: Start: 07-30-2023 Renal function panel Moncho staples MD Work Phone: Start: 07-29-2023 Glucose measurement Moncho lama MD Work Phone: Start: 07-29-2023 Assay of lactate Uyen miller PACKAGE LINE RELIEF OPERATOR Work Phone: Start: 07-29-2023 Ct lower extremity w/contrast material Uyen Casiano PACKAGE LINE RELIEF OPERATOR Work Phone: Start: 07-29-2023 Basic metabolic panel calcium total Uyen Casiano PACKAGE LINE RELIEF OPERATOR Work Phone: Start: 07-29-2023 C-reactive protein Uyen miller PACKAGE LINE RELIEF OPERATOR Work Phone: Start: 07-29-2023 Culture bacterial blood aerobic w/id isolates Uyen Casiano PACKAGE LINE RELIEF OPERATOR Work Phone: Start: 07-29-2023 Debridement subcutaneous tissue 20 sq cm/< Cecilia Sabry [place] DPM Work Phone: Start: 07-29-2023 Cul bact xcpt urine blood/stool aerobic isol Cecilia Sabry [place] DPM Work Phone: Start: 07-15-2023 Debridement subcutaneous tissue 20 sq cm/< Cecilia Sabry [place] DPM Work Phone: Start: 07-15-2023 Cul bact xcpt urine blood/stool aerobic isol Cecilia Sabry Janet DPM Work Phone: Start: 07-08-2023 Debridement subcutaneous tissue 20 sq cm/< Cecilia Sabry Janet DPM Work Phone: Start: 07-01-2023 Debridement subcutaneous tissue 20 sq cm/< Cecilia Sabry [place] DPM Work Phone: Start: 06-07-2023 Adult depression screening assessment Quyen Franco [facility] Work Phone: Start: 03-22-2023 Complete blood count [...] bacterial blood aerobic w/id isolates Isabel Tang PACKAGE LINE RELIEF OPERATOR Work Phone: Start: 03-17-2023 Prothrombin time [...] with white cell differential, automated Nuno Dumont MODELING AGENT-PACKAGE LINE RELIEF OPERATOR Work Phone: Start: 02-26-2023 Comprehensive metabolic panel Nuno mcmillan MODELING AGENT-PACKAGE LINE RELIEF OPERATOR Work Phone: Start: 01-18-2023 Debridement open wound 20 sq cm/< Ami L Hay MODELING AGENT-PACKAGE LINE RELIEF OPERATOR Work Phone: Start: 12-28-2022 Whit skn sub grft t/a/l area/100sq cm /<1st 25 Ami L Hay MODELING AGENT-PACKAGE LINE RELIEF OPERATOR Work Phone: Start: 12-28-2022 OR PURAPLY 1 SQ CM PERFORMABLE Ami L Hay MODELING AGENT-PACKAGE LINE RELIEF OPERATOR Work Phone: Start: 12-21-2022 Whit skn sub grft t/a/l area/100sq cm /<1st 25 Ami L Hay MODELING AGENT-PACKAGE LINE RELIEF OPERATOR Work Phone: Start: 12-21-2022 OR PURAPLY 1 SQ CM PERFORMABLE Ami L Hay MODELING AGENT-PACKAGE LINE RELIEF OPERATOR Work Phone: Start: 12-08-2022 Ct head/brain w/o contrast material Nathan Hayden MD Work Phone: Start: 10-21-2022 DIAGNOSTIC UPPER ENDOSCOPY Antony Morgan Emsheryl ich DO Work Phone: Start: 04-21-2022 Dup-scan xtr veins complete bilateral study Moncho Joaquin MD Work Phone: Start: 04-21-2022 C-reactive protein Quyen Franco PACKAGE LINE RELIEF OPERATOR Work Phone: Start: 04-21-2022 Red blood [...] Work Phone: Start: 11-15-2021 B12/folate level Paul Moeller Jacqui MODELING AGENT-PACKAGE LINE RELIEF OPERATOR Work Phone: Start: 11-15-2021 Complete blood count with white cell differential, automated Evens Mann PA-C Work Phone: Start: 11-15-2021 Renal function panel Evens Mann PA-C Work Phone: Start: 11-14-2021 Fibrinogen activity Paulino Moeller O Work Phone: Start: 11-14-2021 Radex foot complete minimum 3 views Paul Moeller Flora MODELING AGENT-PACKAGE LINE RELIEF OPERATOR Work Phone: Start: 11-14-2021 Ct angiography chest w/contrast/noncontrast Paul Moeller Jacqui MODELING AGENT-PACKAGE LINE RELIEF OPERATOR Work Phone: Start: 11-14-2021 C-reactive protein Paul Moeller Jacqui MODELING AGENT-PACKAGE LINE RELIEF OPERATOR Work Phone: Start: 11-14-2021 Iaad ia hepatitis b surface antigen Evens Mann PA-C Work Phone: Start: 11-14-2021 Renal function panel Evens Mann PA-C Work Phone: Start: 11-13-2021 Dup-scan xtr veins complete bilateral study Evens Mann PA-C Work Phone: Start: 11-13-2021 Creatine kinase total Evens Mann PA- C Work Phone: Start: 11-13-2021 Rheumatoid factor qualitative Evens macario PA-C Work Phone: Start: 11-13-2021 Comprehensive [...] count with white cell differential, automated Felipe Sinha Work Phone: Start: 12-04-2020 Complete blood count with white cell differential, manual Felipe Sinha Work Phone: Start: 12-03-2020 Troponin measurement Felipe encinas Work Phone: Start: 12-03-2020 Troponin measurement Felipe encinas Work Phone: Start: 12-03-2020 Bacteria identified in Sputum by Aerobe culture Felipe Sinha Work Phone: Start: 12-03-2020 Blood count hematocrit [facility] Start: 12-03-2020 Radiologic [...] Work Phone: Start: 12-03-2020 RAINBOW DRAW Maury navarro Work Phone: Start: 12-03-2020 Red blood cell morphology Maury Garcia Work Phone: Start: 12-03-2020 Troponin measurement Maury patricia Work Phone: Start: 12-03-2020 12 lead ECG Maury navarro Work Phone: Start: 11-01-2020 Radiologic exam chest [...] Work Phone: Start: 11-01-2020 Troponin measurement Christopher Retanaa l Work Phone: Start: 08-01-2020 12 lead ECG Saulo Joseph Work Phone: Start: 08-01-2020 Radiologic exam chest single view Saulo Joseph Work Phone: Start: 08-01-2020 Gases blood ph [...] Blood Venancio Quiros Work Phone: Start: 07-09-2020 Electrocardiogram Provider Not In Syst em Start: 07-09-2020 Glucose [Mass/volume] in Blood Venancio Quiros Work Phone: Start: 07-09-2020 Complete [...] Cortisol [Mass/volume] in Serum or Plasma Carina Geren Work Phone: Start: 07-08-2020 Iron measurement Carina [...] Work Phone: Start: 07-08-2020 Troponin measurement Venancio henriquez Work Phone: Start: 07-08-2020 Evaluation of arterial blood gas studies Venancio Millerde Nikalesia Work Phone: Start: 07-08-2020 Assay of lactate Kinsey Ignacio Work Phone: Start: 07-08-2020 Bacteria identified in Blood by Culture Kinsey Ignacio Work Phone: Start: 07-08-2020 Complete blood count (hemogram) panel - Blood by Automated count Venancio Millerde Nikalesia Work Phone: Start: 07-08-2020 D-dimer assay, quantitative Venancio Millersb brooks Chula Work Phone: Start: 07-08-2020 Magnesium [Mass/volume] in Serum or Plasma Venancio Blanco Nikalesia Work Phone: Start: 07-08-2020 Troponin measurement Venancio Millerde Christyveronica henriquez Work Phone: Start: 07-08-2020 Radiography of lugojy-pgbmdi-jxjqocw Venancio Millerde Nikalesia Work Phone: Start: 07-08-2020 Ethanol [Mass/volume] in Serum or Plasma Kinsey Ignacio Work Phone: Start: 07-08-2020 Lactate [Moles/volume] in Serum or Plasma Kinsey Ignacio Work Phone: Start: 07-07-2020 Evaluation of arterial blood gas studies Kinsey Ignacio Work Phone: Start: 07-07-2020 OBTAIN ARTERIAL BLOOD GASES AND PERFORM Kinsey Ignacio Work Phone: Start: 07-07-2020 Drugs of abuse urine screening test Kinsey Ignacio Work Phone: Start: 07-07-2020 Electrolytes 3 panel - Urine Carina Green [...] Phone: Start: 07-07-2020 Hemoglobin A1c/Hemoglobin.total in Blood Venancio Quiros Work Phone: Start: 07-07-2020 Hepatic function [...] Phone: Start: 01-08-2020 Glucose [Mass/volume] in Blood Sofía Dukes Work Phone: Start: 01-08-2020 Radiologic examination [...] INTERMITTENT MARI SECOR Start: 11-06-2019 Iaadiadoo influenza Jerrelllukas Burton Chon Work Phone: Start: 11-06-2019 INITIATE OXYGEN THERAPY [...] 04-03-2019 Radiologic exam chest single view Kinsey Ignacio Work Phone: Start: 04-03-2019 End: 04-03-2019 12 lead ECG Kinsey Ignacio Work Phone: Start: 04-03-2019 Basic metabolic 1998 panel - Serum or Plasma Kinsey Ignacio Work Phone: Start: 04-03-2019 Complete blood count with white cell differential, automated [place] Hannah Sandee Work Phone: Start: 04-03-2019 Complete blood count with white cell differential, manual Kinsey Hannah Sandee Work Phone: Start: 04-03-2019 Natriuretic peptide.B prohormone N-Terminal [Mass/volume] in Serum or Plasma Kinsey Hannahdenise Alexoh Work Phone: Start: 04-03-2019 Red blood cell morphology [place] Hannah Ortiz [facility] Work Phone: Start: 04-03-2019 Troponin measurement Kinsey Hannahdenise Alexoh Work Phone: Start: 07-14-2019 Doppler echocard pulse wave w/spectral display MARI SECOR Start: 03-04-2019 OUTSIDE RADIOLOGY Historical Provider Start: [...] RSV Vaccines (1 - 1-dose 75+ series) [facility] Start: 02-26-2033 Tetanus vaccination [facility] Start: 02-26-2033 Vaccination for diphtheria, pertussis, and tetanus Tetanus/Diphtheria/Pertus sis (3 - Td or Tdap) [facility] Start: 05-16-2026 eGFR Diabetes eGFR Diabetes [facility] Start: 04-05-2026 eGFR Diabetes eGFR Diabetes [facility] Start: 10-22-2025 Urine screening for protein eGFR Diabetes [facility] Start: 10-16-2025 Urine screening for protein eGFR Diabetes [facility] Start: 08-13-2025 Hemoglobin A1c measurement A1C [facility] Start: 07-01-2025 End: 11-10-2025 Admission to same day surgery center 07/01/2025 2:31 PM EST - 07/01/2025 5:10 PM [facility] Surgery [facility] [address] [place] [phone] Sofía Dukes MD [address] [place] [address] Resection arthroplasty with antibiotic spacer right knee [facility] Comment on above: Resection arthroplasty with antibiotic s pacer right knee Start: 07-01-2025 End: 07-01-2025 Rmvl prosth tot knee prosth mma w/wo insj spacer ARTHROTOMY KNEE WITH SPACER INSERTION Abscess of knee, right History of total right knee replacement 07/01/2025 2:31 PM [facility] [place] Start: 07-01-2025 Subsequent hospital visit by physician [facility] Start: 06-13-2025 End: 06-13-2025 Follow-up encounter 06/13/2025 4:00 PM EDT Follow-Up [facility] [address] [place] [address] Sofía Dukes MD [address] [place] [address] [facility] Start: 05-09-2025 End: 05-09-2025 Patient encounter procedure 05/09/2025 2:00 PM EDT Office Visit [facility] [address] [place] [address] Daniel Hammer MD [address] [address] [facility] Start: 04-22-2025 COVID-19 Vaccine ( season) COVID-19 Vaccine ( season) [facility] Start: 04-22-2025 COVID-19 Vaccine ( season) COVID-19 Vaccine ( season) [facility] Start: 04-22-2025 Influenza vaccination [facility] Start: 04-16-2025 Hemoglobin A1c measurement A1C [facility] Start: 01-18-2025 End: 01-18-2025 Patient encounter procedure 01/18/2025 1:30 PM EDT Office Visit [facility] [address] [place] [phone] Cecilia Gonzales, DPM [address] [place] [address] Discharge Disposition: Home [facility] Start: 01-04-2025 End: 01-04-2025 Patient encounter procedure 01/04/2025 2:00 PM EDT Office Visit [facility] [address] [place] [phone] Cecilia Gonzales, DPM [address] [place] [address] Discharge Disposition: Home [facility] Start: 01-02-2025 End: 01-02-2025 Patient encounter procedure 01/02/2025 2:20 PM EDT Office Visit [facility] [address] [place] [address], 3rd [place] [address] Ani Worley, [address] [address] Luis Daniel Cao III, [address] [place] [address] [facility] Start: 12-28-2024 End: 12-28-2024 Patient encounter procedure 12/28/2024 1:30 PM EDT Office Visit [facility] [address] [place] [phone] Cecilia Gonzales, DPM [address] [place] [address] Discharge Disposition: Home [facility] Start: 12-21-2024 End: 12-21-2024 Patient encounter procedure 12/21/2024 1:15 PM EDT Office Visit [facility] [address] [place] [address] Cecilia Gonzales, DPM [address] [place] [address] Discharge Disposition: [facility] Start: 11-30-2024 End: 11-30-2024 Patient encounter procedure 11/30/2024 11:00 AM EDT Office Visit [facility] [address] [place] [address] Cecilia Gonzales, DPM [address] [place] [address] Discharge Disposition: [facility] Start: 11-15-2024 End: 11-15-2024 Patient encounter procedure 11/15/2024 10:30 AM EDT Office Visit [facility] [address] [place] [address] Sofía Garcia PA-C [address] [address] [facility] Start: 11-09-2024 End: 11-09-2024 Patient encounter procedure 11/09/2024 1:15 PM EDT Office Visit [facility] [address] [place] [address] Cecilia Gonzales, DPM [address] [place] [address] Discharge Disposition: [facility] Start: 10-26-2024 End: 10-26-2024 Patient encounter procedure 10/26/2024 1:30 PM EST Office Visit [facility] [address] [place] [address] Cecilia Gonzales DPM [address] [place] [address] Discharge Disposition: Home [facility] Start: 08-10-2024 Screening for malignant neoplasm of colon [facility] Start: 06-07-2024 Depression screening using PHQ-9 (Patient Health Questionnaire 9) score [facility] Start: 04-22-2024 COVID-19 Vaccine ( season) COVID-19 Vaccine () [facility] Start: 04-22-2024 Influenza vaccination [facility] Start: 03-22-2024 Potassium [Moles/volume] in Serum or Plasma POTASSIUM [facility] Start: 01-29-2024 Hemoglobin A1c measurement A1C [facility] Start: 01-11-2024 Hemoglobin A1c measurement A1C [facility] Start: 01-09-2024 End: 01-09-2024 Patient encounter procedure 01/09/2024 2:15 PM EDT Office Visit [facility] [address] [place] [address] Neptali Gerardo, DO [address] [place] [address] [facility] Start: 11-30-2023 Hemoglobin A1c measurement A1C [facility] Start: 09-09-2023 End: 09-09-2023 Patient encounter procedure 09/09/2023 2:15 PM EST Office Visit [facility] [address] [place] [address] Cecilia Gonzales DPM [address] [place] [address] Discharge Disposition: [facility] Start: 09-02-2023 End: 09-02-2023 Patient encounter procedure 09/02/2023 2:15 PM EST Office Visit [facility] [address] [place] [address] Cecilia Gonzales, DPM [address] [place] [address] Discharge Disposition: Home [facility] Start: 08-30-2023 Hemoglobin A1c measurement A1C [facility] Start: 08-26-2023 End: 08-26-2023 Patient encounter procedure 08/26/2023 1:15 PM EST Office Visit [facility] [address] [place] [address] Cecilia Gonzales, DPM [address] [place] [address] Discharge Disposition: Home [facility] Start: 08-19-2023 End: 08-19-2023 [facility] Start: 07-22-2023 End: 07-22-2023 Patient encounter procedure 07/22/2023 11:00 AM EST Office Visit [facility] [address] [place] [address] Cecilia Gonzales, DPM [address] [place] [address] Discharge Disposition: [facility] Start: 07-15-2023 End: 07-15-2023 Patient encounter procedure 07/15/2023 7:30 AM EST Office Visit [facility] [address] [place] [address] Cecilia Gonzales, DPM [address] [place] [address] Discharge Disposition: [facility] Start: 07-08-2023 End: 07-08-2023 Patient encounter procedure 07/08/2023 1:30 PM EST Office Visit [facility] [address] [place] [phone] Cecilia Gonzales, DPM [address] [place] [address] Discharge Disposition: Home [facility] Start: 06-24-2023 End: 06-24-2023 Patient encounter procedure 06/24/2023 8:45 AM EDT Office Visit [facility] [address] [place] [address] Cecilia Gonzales, DPM [address] [place] [address] Discharge Disposition: [facility] Start: 06-03-2023 End: 06-03-2023 Patient encounter procedure 06/03/2023 9:00 AM EDT Office Visit [facility] [address] [place] [address] Quyen Franco, PACKAGE LINE RELIEF OPERATOR [address] [place] [address] Discharge Disposition: [facility] Start: 05-02-2023 End: 05-02-2023 Patient encounter procedure [facility] Start: 04-26-2023 End: 04-26-2023 Clinical Support Encounter 04/26/2023 11:00 AM EDT Clinical Support Encounter [facility] [address] [place] [address] [facility] Start: 04-22-2023 COVID-19 Vaccine ( season) COVID-19 Vaccine ( season) [facility] Start: 04-22-2023 Influenza vaccination [facility] Start: 04-18-2023 End: 04-18-2023 Patient encounter procedure [facility] Start: 04-12-2023 End: 04-12-2023 Patient encounter [facility] Start: 04-07-2023 End: 04-07-2024 Complete blood count with white cell differential, automated CBC, EDIF, PLATELET Lab Routine Left leg cellulitis Expected: 04/07/2023, Expires: 04/07/2024 [facility] Comment on above: Expected: 04/07/2023, Expires: Start: 04-07-2023 End: 04-07-2024 Comprehensive metabolic 2000 panel - Serum or Plasma COMPREHENSIVE METABOLIC PANEL Lab Routine Left leg cellulitis Expected: 04/07/2023, Expires: 04/07/2024 [facility] Comment on above: Expected: 04/07/2023, Expires: Start: 04-07-2023 End: 04-07-2023 Patient encounter procedure 04/07/2023 10:00 AM EDT Office Visit [facility] Infect[facility] Disease [address] [place] [address] Nathan Hayden MD [address] [place] [address] [facility] Start: 03-31-2023 End: 03-31-2024 Bacterial culture and sensitivity [facility] Comment on above: Expected: 03/31/2023, Expires: Start: 03-31-2023 End: 03-31-2024 SCREEN: MRSA ONLY, NARES (ISOLATION SCREEN) [facility] Comment on above: Expected: 03/31/2023, Expires: Start: 03-23-2023 End: 03-23-2023 Patient encounter procedure 03/23/2023 11:45 AM EDT Office Visit [facility] Infectious Disease [address] [place] [address] Nathan Hayden MD [address] [place] [address] [facility] Start: 03-01-2023 End: 03-01-2023 Patient encounter procedure 03/01/2023 1:15 PM EDT Office Visit [facility] [address] [facility] [address] Marie Ayala, MODELING AGENT-PACKAGE LINE RELIEF OPERATOR [address] [place] [phone] [facility] [place] [facility] Start: 02-28-2023 End: 02-28-2023 ambulatory 02/28/2023 12:00 PM EDT Rehab Services Visit [facility] [address] [place] [address] Marie Ayala, MODELING AGENT-PACKAGE LINE RELIEF OPERATOR [address] [phone] Isa García PTA [facility] [place] Start: 02-23-2023 End: 02-23-2023 Patient encounter procedure [facility] Start: 02-21-2023 End: 02-21-2023 Clinical Support Encounter 02/21/2023 8:45 AM EDT Clinical Support Encounter [facility] [place] [facility] [address] [facility] [place] [address] Marie Ayala, MODELING AGENT-PACKAGE LINE RELIEF OPERATOR [address] [phone] [facility] [place] [facility] Start: 02-15-2023 End: 02-15-2023 ambulatory 02/15/2023 2:00 PM EDT Rehab Services Visit [facility] [address] [place] [address] Marie Ayala, MODELING AGENT-PACKAGE LINE RELIEF OPERATOR [address] [phone] Marcelina Tee PT [facility] [place] Start: 02-15-2023 End: 02-15-2023 Patient encounter procedure 02/15/2023 1:15 PM EDT Office Visit [facility] [place] [facility] [address] [facility] [place] [address] Marie Ayala, MODELING AGENT-PACKAGE LINE RELIEF OPERATOR [address] [phone] [facility] [place] [facility] Start: 02-08-2023 End: 02-08-2023 Patient encounter procedure 02/08/2023 Office Visit Chemotherapy Bridget Dahl MD [address] [place], [place] [phone] [facility] Start: 02-08-2023 End: 03-08-2023 XR Foot - right 3 Views [facility] Comment on above: Expected: 02/08/2023, Expires: 3 Start: 02-07-2023 Fasting lipid profile LIPID SCREENING [facility] Start: 02-07-2023 Lipid panel LIPID SCREENING [facility] Start: 02-01-2023 End: 02-01-2023 Patient encounter procedure 02/01/2023 Office Visit Wound Care Jamie Marie Sheryl, MODELING AGENT-PACKAGE LINE RELIEF OPERATOR [address] [place] [address], [place] [phone] [facility] Start: 02-01-2023 End: 02-01-2023 ambulatory 02/01/2023 Rehab Services Visit Physical Therapy JamieMarie, MODELING AGENT-PACKAGE LINE RELIEF OPERATOR [address] [place] [address], [place] [address] Isa García PTA [facility] [place] Start: 01-28-2023 End: 01-28-2023 Patient encounter procedure 01/28/2023 Office Visit Podiatry Kristi Bryan DPM [address] [place] [address] [facility] Start: 01-26-2023 End: 01-27-2024 HCV RNA HERMAN QUAL RFX TO QUANT HCV RNA HERMAN QUAL RFX TO QUANT Lab Routine Chronic hepatitis C without hepatic coma Expected: 01/26/2023, Expires: 01/27/2024 [facility] Comment on above: Expected: 01/26/2023, Expires: 4 Start: 01-26-2023 End: 01-27-2024 Hepatic function 2000 panel - Serum or Plasma HEPATIC FUNCTION PANEL Lab Routine Chronic hepatitis C without hepatic coma Expected: 01/26/2023, Expires: 01/27/2024 [facility] Comment on above: Expected: 01/26/2023, Expires: Start: 01-26-2023 End: 01-27-2024 M TUBERCULOSIS BY QUANTIFERON, BLD M TUBERCULOSIS BY QUANTIFERON, BLD Lab Routine Healthcare maintenance Expected: 01/26/2023, Expires: 01/27/2024 [facility] Comment on above: Expected: 01/26/2023, Expires: Start: 01-26-2023 End: 01-27-2024 PROTIME-INR PROTIME-INR Lab Routine Chronic hepatitis C without hepatic coma Cirrhosis of liver without ascites, unspecified hepatic cirrhosis type Expected: 01/26/2023, Expires: 01/27/2024 [facility] Comment on above: Expected: 01/26/2023, Expires: Start: 01-25-2023 End: 01-25-2023 Patient encounter procedure 01/25/2023 Office Visit Wound Care Marie Ayala, MODELING AGENT-PACKAGE LINE RELIEF OPERATOR [address] [phone] [facility] Start: 01-25-2023 End: 01-25-2023 ambulatory 01/25/2023 Rehab Services Visit Physical Therapy Marie Ayala, MODELING AGENT-PACKAGE LINE RELIEF OPERATOR [address] [phone] Isa García PTA [facility] [place] Start: 01-12-2023 End: 01-12-2023 Patient encounter procedure 01/12/2023 Office Visit Infectious Diseases Nathan Hayden MD [address] [place] [address] [facility] Start: 01-04-2023 End: 01-04-2023 Patient encounter procedure 01/04/2023 Office Visit Wound Care Marie Ayala, MODELING AGENT-PACKAGE LINE RELIEF OPERATOR [address] [place] [address] [facility] [place] [facility] Start: 01-04-2023 End: 01-04-2023 ambulatory 01/04/2023 Rehab Services Visit Physical Therapy Marie Ayala, MODELING AGENT-PACKAGE LINE RELIEF OPERATOR [address] [place] [address], [place] [address] Isa García PTA [facility] [place] Start: 12-28-2022 End: 12-28-2022 Patient encounter procedure 12/28/2022 Office Visit Wound Care Marie Ayala, MODELING AGENT-PACKAGE LINE RELIEF OPERATOR [address] [place] [address], [place] [address] [facility] Start: 12-28-2022 End: 12-28-2022 ambulatory 12/28/2022 Rehab Services Visit Physical Therapy Marie Ayala, MODELING AGENT-PACKAGE LINE RELIEF OPERATOR [address] [place] [address], [place] [address] Isa García PTA [facility] [place] Start: 12-21-2022 End: 12-21-2022 Patient encounter procedure 12/21/2022 Office Visit Wound Care Marie Ayala, MODELING AGENT-PACKAGE LINE RELIEF OPERATOR [address] [place] [address], [place] [address] [facility] Start: 12-14-2022 End: 12-14-2022 Patient encounter procedure 12/14/2022 Office Visit Wound Care Marie Ayala, MODELING AGENT-PACKAGE LINE RELIEF OPERATOR [address] [place] [address], [place] [address] [facility] [place] [facility] Start: 12-14-2022 End: 12-14-2022 ambulatory 12/14/2022 Rehab Services Visit Physical Therapy Marie Ayala, MODELING AGENT-PACKAGE LINE RELIEF OPERATOR [address] [place] [address], [place] [address] Marcelina Tee, PT [facility] [place] Start: 12-08-2022 End: 12-08-2022 Patient encounter procedure 12/08/2022 Office Visit Infectious Diseases Nathan Hayden MD [address] [place] [address] [facility] Start: 12-07-2022 End: 12-07-2022 Patient encounter procedure 12/07/2022 Office Visit Chemotherapy Bridget Dahl MD [address] [facility] [place] [address] [facility] Start: 12-07-2022 End: 12-07-2022 Patient encounter procedure 12/07/2022 Office Visit Wound Care Marie Ayala, MODELING AGENT-PACKAGE LINE RELIEF OPERATOR [address] [place] [address] [facility] Start: 11-30-2022 End: 11-30-2022 Clinical Support Encounter 11/30/2022 Clinical Support Encounter Wound Care Marie Ayala, MODELING AGENT-PACKAGE LINE RELIEF OPERATOR [address] [address] [facility] Start: 11-25-2022 End: 11-25-2022 Patient encounter procedure 11/25/2022 Office Visit Chemotherapy Bridget Dahl MD [address] [facility] [place] [address] [facility] Start: 11-25-2022 End: 11-26-2023 ISSAC MULTIPLEX SCRN WITH REFLEX ISSAC MULTIPLEX SCRN WITH REFLEX Lab Routine Pancytopenia Thrombocytopenia Leukopenia, unspecified type Microcytic hypochromic anemia Hepatosplenomegaly Expected: 11/25/2022, Expires: 11/26/2023 [facility] Comment on above: Expected: 11/25/2022, Expires: Start: 11-25-2022 End: 11-26-2023 Cyanocobalamin vitamin b-12 VITAMIN B12 Lab Routine Pancytopenia Thrombocytopenia Leukopenia, unspecified type Microcytic hypochromic anemia Hepatosplenomegaly Expected: 11/25/2022, Expires: 11/26/2023 [facility] Comment on above: Expected: 11/25/2022, Expires: Start: 11-25-2022 End: 11-26-2023 DSDNA ANTIBODY DSDNA ANTIBODY Lab Routine Pancytopenia Thrombocytopenia Leukopenia, unspecified type Microcytic hypochromic anemia Hepatosplenomegaly Expected: 11/25/2022, Expires: 11/26/2023 [facility] Comment on above: Expected: 11/25/2022, Expires: Start: 11-25-2022 End: 11-26-2023 Ferritin [Mass/volume] in Serum or Plasma FERRITIN Lab Routine Pancytopenia Thrombocytopenia Leukopenia, unspecified type Microcytic hypochromic anemia Hepatosplenomegaly Expected: 11/25/2022, Expires: 11/26/2023 [facility] Comment on above: Expected: 11/25/2022, Expires: Start: 11-25-2022 End: 11-26-2023 Folate [Mass/volume] in Serum or Plasma FOLATE, SERUM Lab Routine Pancytopenia Thrombocytopenia Leukopenia, unspecified type Microcytic hypochromic anemia Hepatosplenomegaly Expected: 11/25/2022, Expires: 11/26/2023 [facility] Comment on above: Expected: 11/25/2022, Expires: Start: 11-25-2022 End: 11-26-2023 IRON/IRON BINDING/TRANSFERRIN IRON/IRON BINDING/TRANSFERRIN Lab Routine Pancytopenia Thrombocytopenia Leukopenia, unspecified type Microcytic hypochromic anemia Hepatosplenomegaly Expected: 11/25/2022, Expires: 11/26/2023 [facility] Comment on above: Expected: 11/25/2022, Expires: Start: 11-25-2022 End: 11-26-2023 PLATELET AB ID PANEL PLATELET AB ID PANEL Lab Routine Pancytopenia Thrombocytopenia Leukopenia, unspecified type Microcytic hypochromic anemia Hepatosplenomegaly Expected: 11/25/2022, Expires: 11/26/2023 [facility] Comment on above: Expected: 11/25/2022, Expires: Start: 11-25-2022 End: 11-26-2023 REQUEST FOR MISC LAB SENDOUT REQUEST FOR MISC LAB SENDOUT Lab Routine Pancytopenia Thrombocytopenia Leukopenia, unspecified type Microcytic hypochromic anemia Hepatosplenomegaly Expected: 11/25/2022 (Approximate), Expires: 11/26/2023 [facility] Comment on above: Expected: 11/25/2022 (Approximate), Expi res: 11/26/2023 Start: 11-25-2022 End: 11-26-2023 RETICULOCYTES RETICULOCYTES Lab Routine Pancytopenia Thrombocytopenia Leukopenia, unspecified type Microcytic hypochromic anemia Hepatosplenomegaly Expected: 11/25/2022, Expires: 11/26/2023 [facility] Comment on above: Expected: 11/25/2022, Expires: Start: 11-25-2022 End: 11-26-2023 SOLUBLE TRANSFERRIN RECEPTOR SOLUBLE TRANSFERRIN RECEPTOR Lab Routine Pancytopenia Thrombocytopenia Leukopenia, unspecified type Microcytic hypochromic anemia Hepatosplenomegaly Expected: 11/25/2022, Expires: 11/26/2023 [facility] Comment on above: Expected: 11/25/2022, Expires: Start: 11-24-2022 End: 11-24-2022 Patient encounter procedure 11/24/2022 Office Visit Infectious Diseases Nathan Hayden MD [address] [place] [address] [facility] Infectious Disease Start: 11-23-2022 End: 11-23-2022 Patient encounter procedure 11/23/2022 Office Visit Wound Care Marie Ayala, MODELING AGENT-PACKAGE LINE RELIEF OPERATOR [address] [place] [phone] [facility] W[facility] Care Start: 11-15-2022 Potassium [Moles/volume] in Serum or Plasma POTASSIUM [facility] Start: 11-09-2022 End: 11-09-2022 Patient encounter procedure 11/09/2022 Office Visit Wound Care Jamie Marie Saucedo, MODELING AGENT-PACKAGE LINE RELIEF OPERATOR [address] [place] [address] [facility] Wound Care Start: 10-27-2022 End: 10-27-2022 Patient encounter procedure 10/27/2022 Office Visit Infectious Diseases Nathan Hayden MD [address] [place] [address] [facility] Infectious Disease Start: 10-21-2022 End: 10-21-2022 Patient encounter procedure 10/21/2022 Appointment Endoscopy Erick Snow, Antony Morgan DO [address] [place] [address] [facility] End[facility] Start: 09-30-2022 End: 09-30-2022 Patient encounter procedure 09/30/2022 Office Visit Podiatry Felipe Molina DPM [address] [place] [address] [facility] Podiatry Start: 09-29-2022 End: 09-29-2023 Complete blood count with white cell differential, automated CBC, EDIF, PLATELET Lab Routine Chronic hepatitis C without hepatic coma Expected: 09/29/2022, Expires: 09/29/2023 [facility] Comment on above: Expected: 09/29/2022, Expires: Start: 09-29-2022 End: 09-29-2023 Comprehensive metabolic 2000 panel - Serum or Plasma COMPREHENSIVE METABOLIC PANEL Lab Routine Chronic hepatitis C without hepatic coma Expected: 09/29/2022, Expires: 09/29/2023 [facility] Comment on above: Expected: 09/29/2022, Expires: Start: 09-29-2022 End: 09-29-2023 HBV REAL-TIME PCR, QUANT HBV REAL-TIME PCR, QUANT Lab Routine Chronic hepatitis C without hepatic coma Hepatitis B core antibody positive Expected: 09/29/2022, Expires: 09/29/2023 [facility] Comment on above: Expected: 09/29/2022, Expires: Start: 09-29-2022 End: 09-29-2023 HCV RNA HERMAN QUAL RFX TO QUANT HCV RNA HERMAN QUAL RFX TO QUANT Lab Routine Chronic hepatitis C without hepatic coma Expected: 09/29/2022, Expires: 09/29/2023 [facility] Comment on above: Expected: 09/29/2022, Expires: Start: 09-23-2022 End: 09-23-2022 Patient encounter procedure 09/23/2022 Appointment Endoscopy Antony Suarez Jr., DO [address] [place] [address], [place] [address] [facility] Start: 09-15-2022 End: 09-15-2022 Patient encounter procedure 09/15/2022 Office Visit Infectious Diseases Nathan Hayden MD [address] [place] [address] [facility] Infectious Disease Start: 08-26-2022 End: 08-26-2022 Patient encounter procedure 08/26/2022 Office Visit Gastroenterology Antony Suarez Jr., DO [address] [place] [address], [place] [address] [facility] Gastroenterology Start: 08-26-2022 End: 08-26-2023 ISSAC MULTIPLEX SCRN WITH REFLEX ISSAC MULTIPLEX SCRN WITH REFLEX Lab Routine Cirrhosis of liver without ascites, unspecified hepatic cirrhosis type Chronic hepatitis C without hepatic coma Expected: 08/26/2022, Expires: 08/26/2023 [facility] Comment on above: Expected: 08/26/2022, Expires: Start: 08-26-2022 End: 08-26-2023 ANCA INIT SCRN (ANCA, PR3AB, MPO) ANCA INIT SCRN (ANCA, PR3AB, MPO) Lab Routine Cirrhosis of liver without ascites, unspecified hepatic cirrhosis type Chronic hepatitis C without hepatic coma Expected: 08/26/2022, Expires: 08/26/2023 [facility] Comment on above: Expected: 08/26/2022, Expires: Start: 08-26-2022 End: 08-26-2023 Angiotensin converting enzyme [Enzymatic activity/volume] in Serum or Plasma ANGIOTENSIN CONVERTING ENZYME Lab Routine Cirrhosis of liver without ascites, unspecified hepatic cirrhosis type Chronic hepatitis C without hepatic coma Expected: 08/26/2022, Expires: 08/26/2023 [facility] Comment on above: Expected: 08/26/2022, Expires: Start: 08-26-2022 End: 08-26-2023 ANTI MITOCHONDRIAL ANTIBODY ANTI MITOCHONDRIAL ANTIBODY Lab Routine Cirrhosis of liver without ascites, unspecified hepatic cirrhosis type Chronic hepatitis C without hepatic coma Expected: 08/26/2022, Expires: 08/26/2023 [facility] Comment on above: Expected: 08/26/2022, Expires: 4 Start: 08-26-2022 End: 08-26-2023 CERULOPLASMIN CERULOPLASMIN Lab Routine Cirrhosis of liver without ascites, unspecified hepatic cirrhosis type Chronic hepatitis C without hepatic coma Expected: 08/26/2022, Expires: 08/26/2023 [facility] Comment on above: Expected: 08/26/2022, Expires: 4 Start: 08-26-2022 End: 08-26-2023 CMV IGM AB CMV IGM AB Lab Routine Cirrhosis of liver without ascites, unspecified hepatic cirrhosis type Chronic hepatitis C without hepatic coma Expected: 08/26/2022, Expires: 08/26/2023 [facility] Comment on above: Expected: 08/26/2022, Expires: Start: 08-26-2022 End: 08-26-2023 COPPER COPPER Lab Routine Cirrhosis of liver without ascites, unspecified hepatic cirrhosis type Chronic hepatitis C without hepatic coma Expected: 08/26/2022, Expires: 08/26/2023 [facility] Comment on above: Expected: 08/26/2022, Expires: Start: 08-26-2022 End: 08-26-2023 DIAGNOSTIC UPPER ENDOSCOPY DIAGNOSTIC UPPER ENDOSCOPY GI/Bronch Routine Cirrhosis of liver without ascites, unspecified hepatic cirrhosis type Chronic hepatitis C without hepatic coma Expected: 08/26/2022, Expires: 08/26/2023 [facility] Comment on above: Expected: 08/26/2022, Expires: Start: 08-26-2022 End: 08-26-2023 EBV ACUTE INFECTION ANTIBODIES PROFILE EBV ACUTE INFECTION ANTIBODIES PROFILE Lab Routine Cirrhosis of liver without ascites, unspecified hepatic cirrhosis type Chronic hepatitis C without hepatic coma Expected: 08/26/2022, Expires: 08/26/2023 [facility] Comment on above: Expected: 08/26/2022, Expires: Start: 08-26-2022 End: 08-26-2023 Protein electrophoresis PROTEIN ELECTROPHORESIS Lab Routine Cirrhosis of liver without ascites, unspecified hepatic cirrhosis type Chronic hepatitis C without hepatic coma Expected: 08/26/2022, Expires: 08/26/2023 [facility] Comment on above: Expected: 08/26/2022, Expires: Start: 08-26-2022 End: 08-26-2023 REQUEST FOR MISC LAB SENDOUT REQUEST FOR MISC LAB SENDOUT Lab Routine Cirrhosis of liver without ascites, unspecified hepatic cirrhosis type Chronic hepatitis C without hepatic coma Expected: 08/26/2022, Expires: 08/26/2023 [facility] Comment on above: Expected: 08/26/2022, Expires: Start: 08-11-2022 End: 08-11-2022 Patient encounter procedure 08/11/2022 Office Visit Gastroenterology Erick Snow, Antony Morgan, [address] [place] [address] [facility] Gastroenterology Start: 07-07-2022 End: 07-07-2023 Complete blood count with white cell differential, automated CBC, EDIF, PLATELET Lab Routine Chronic hepatitis C without hepatic coma Expected: 07/07/2022, Expires: 07/07/2023 [facility] Comment on above: Expected: 07/07/2022, Expires: 3 Start: 07-07-2022 End: 07-07-2023 Comprehensive metabolic 2000 panel - Serum or Plasma COMPREHENSIVE METABOLIC PANEL Lab Routine Chronic hepatitis C without hepatic coma Expected: 07/07/2022, Expires: 07/07/2023 [facility] Comment on above: Expected: 07/07/2022, Expires: 3 Start: 07-07-2022 End: 07-07-2023 HBV REAL-TIME PCR, QUANT HBV REAL-TIME PCR, QUANT Lab Routine Hepatitis B core antibody positive Expected: 07/07/2022, Expires: 07/07/2023 [facility] Comment on above: Expected: 07/07/2022, Expires: 3 Start: 04-22-2022 Influenza vaccination [facility] Start: 07-07-2021 Microalbumin measurement, urine, quantitative Urine Microalbumin [facility] Start: 07-07-2021 Urine screening for protein Urine Microalbumin [facility] Start: 05-12-2021 End: 05-12-2021 Patient encounter procedure 05/12/2021 Office Visit Podiatry Felipe Molina DPM [address] [place] [address] [facility] Start: 04-22-2021 Influ[facility] Start: 04-14-2021 End: 04-14-2021 Patient encounter procedure 04/14/2021 Office Visit Podiatry Felipe Molina DPM [address] [place] [address] [facility] Start: 01-04-2021 HbA1c (Bld) [Mass fraction] A1C [facility] Start: 01-04-2021 Hemoglobin A1c measurement A1C [facility] Start: 11-05-2020 [facility]inine [facility] [facility] [place] Start: 11-05-2020 Potassium monitoring Potassium monitoring [facility] [employer], [place] Start: 08-21-2020 End: 08-21-2020 Office Visit 08/21/2020 Office Visit Cardiology Gene Rebolledo MD [address] [place] [address] [phone] [facility] Start: 07-23-2020 End: 07-23-2020 Telemedicine 07/23/2020 Telemedicine Cardiology Merry Medrano, RODRIGUE [address] [facility] [place] [address] [phone] [facility] Start: 07-22-2020 End: 07-22-2020 Office Visit 07/22/2020 Office Visit Family Medicine Palmer Givens PA [address] [place] [phone] [facility] Start: 07-14-2020 End: 07-14-2021 Complete blood count with white cell differential, automated CBC, EDIF, PLATELET Lab Routine Anemia, unspecified type Thrombocytopenia Expected: 07/14/2020, Expires: 07/14/2021 [facility] Comment on above: Expected: 07/14/2020, Expires: 1 Start: 07-14-2020 End: 07-14-2021 Comprehensive metabolic 2000 panel COMPREHENSIVE METABOLIC PANEL Lab Routine Chronic obstructive pulmonary disease with acute exacerbation Acute respiratory failure, unspecified whether with hypoxia or hypercapnia Atrial fibrillation, unspecified type Anemia, unspecified type Thrombocytopenia Elevated troponin Elevated brain natriuretic peptide (BNP) level Marijuana use Expected: 07/14/2020, Expires: 07/14/2021 [facility] Comment on above: Expected: 07/14/2020, Expires: 1 Start: 07-05-2020 HbA1c (Bld) [Mass fraction] A1C [facility] Start: 04-22-2020 Influenza vaccination INFLUENZA VACCINE (#1) [facility] Start: 04-22-2020 Influenza vaccination given [facility] Start: 02-06-2020 End: 02-06-2020 Follow-Up 02/06/2020 Follow-Up Sports Medicine Sofía Dukes MD [address] [place] [address] [phone] [facility] Start: 01-25-2020 End: 01-25-2020 Appointment [facility] Start: 01-25-2020 End: 01-25-2020 Home Care Visit 01/25/2020 Home Care Visit Home Health Services Harris Vargas RN [facility] Start: 01-24-2020 End: 01-24-2020 Home Care Visit 01/24/2020 Home Care Visit Home Health Services Jignesh Gilbert, PT [facility] Start: 01-23-2020 End: 01-23-2020 Follow-Up 01/23/2020 Follow-Up Sports Medicine Sofía Dukes MD [address] [place] [address] [phone] [facility] Start: 01-22-2020 End: 01-22-2020 Home Care Visit [facility] Start: 01-21-2020 End: 01-21-2020 Home Care Visit 01/21/2020 Home Care Visit Home Health Services Nisa Tavares RN [facility] Start: 01-18-2020 End: 01-18-2020 Home Care Visit [facility] Start: 01-17-2020 End: 01-17-2020 Home Care Visit [facility] Start: 01-15-2020 End: 01-15-2020 Home Care Visit [facility] Start: 01-14-2020 End: 01-14-2020 Home Care Visit [facility] Start: 01-11-2020 End: 01-11-2020 Home Care Visit 01/11/2020 Home Care Visit Home Health Services Jessenia Salazar LPN [facility] Start: 01-10-2020 End: 01-11-2020 Home Care Visit [facility] Start: 01-09-2020 End: 01-09-2020 Appointment 01/09/2020 Appointment Home Health Services Pinky Brown RN [facility] Start: 01-09-2020 End: 01-09-2020 Home Care Visit 01/09/2020 Home Care Visit Home Health Services Jignesh Gilbert, PT [facility] Start: 01-08-2020 End: 01-08-2020 Hospital Encounter [facility] Comment on above: Primary osteoarthritis of right knee Right Total Knee Rep lacement [employer] Start: 01-05-2020 End: 01-05-2020 Office Visit 01/05/2020 Office Visit Lab Sofía Dukes MD [address] [place] [address] [phone] [facility] Start: 01-04-2020 End: 01-04-2020 Surgical Consult [facility] Start: 12-07-2019 End: 12-07-2019 Treatment 12/07/2019 Treatment Rehabilitation Lena Hill CNP [address] [place] [address] [phone] Do Parrish, PT [facility] Start: 12-06-2019 End: 12-06-2019 Hospital Encounter [facility] Comment on above: Primary osteoarthritis of right knee Right Total Knee Rep lacement Robotic Start: 12-05-2019 End: 12-05-2019 Treatment 12/05/2019 Treatment Rehabilitation Lena Hill CNP [address] [facility] [place] [address] [phone] Danisha Courtney, [facility] Start: 11-30-2019 End: 11-30-2019 Treatment 11/30/2019 Treatment Rehabilitation Lena Hill CNP [address] [place] [address] Do Parrish, PT [facility] Start: 11-28-2019 End: 11-28-2019 Treatment 11/28/2019 Treatment Rehabilitation Lena Hill CNP [address] [place] [address] Danisha Courtney, [facility] Start: 11-23-2019 End: 11-23-2019 Treatment 11/23/2019 Treatment Rehabilitation Lena Hill CNP [address] [facility] [place] [address] [phone] Danisha Courtney, [facility] Start: 11-21-2019 End: 11-21-2019 Treatment 11/21/2019 Treatment Rehabilitation Lena Hill, PACKAGE LINE RELIEF OPERATOR [address] [place] [address] [phone] Danisha Courtney, SOFTWARE SYSTEMS ARCHITECT [facility] Start: 11-20-2019 End: 11-20-2019 Surgical Consult 11/20/2019 Surgical Consult Sports Medicine Sofía Dukes MD [address] [facility] [address] [phone] [facility] Start: 11-16-2019 End: 11-16-2019 Treatment 11/16/2019 Treatment Rehabilitation Lena Hill, PACKAGE LINE RELIEF OPERATOR [address] [place] [address] [phone] Do Parrish, PT [facility] Start: 11-14-2019 End: 11-14-2019 Treatment 11/14/2019 Treatment Rehabilitation Lena Hill, PACKAGE LINE RELIEF OPERATOR [address] [place] [address] [phone] Danisha Courtney, SOFTWARE SYSTEMS ARCHITECT [facility] Start: 11-13-2019 End: 11-13-2019 Office Visit [facility] Preadmission Testing Start: 11-09-2019 End: 11-09-2019 Treatment 11/09/2019 Treatment Rehabilitation Lena Hill, PACKAGE LINE RELIEF OPERATOR [address] [place] [address] [phone] Do Parrish, PT [facility] Start: 11-07-2019 End: 11-07-2019 Treatment 11/07/2019 Treatment Rehabilitation Lena Hill, PACKAGE LINE RELIEF OPERATOR [address] [place] [address] [phone] Christa Sanchez, PT [facility] Start: 11-06-2019 End: 11-06-2019 Office Visit 11/06/2019 Office Visit Cardiology Sofía Dukes MD [address] [place] [address] [phone] Jeff Minor MD [address] [place] [address] [phone] [facility] Start: 11-02-2019 End: 11-02-2019 Treatment 11/02/2019 Treatment Rehabilitation LizLena, PACKAGE LINE RELIEF OPERATOR [address] [facility] [address] [place] [address] [phone] Deborah Phillip, [facility] Start: 10-31-2019 End: 10-31-2019 Treatment 10/31/2019 Treatment Rehabilitation Lena Hill, PACKAGE LINE RELIEF OPERATOR [address] [facility] [address] [place] [address] [phone] Minesh Dejesus, [facility] Start: 10-30-2019 End: 10-29-2020 Diagnostic radiography of chest, combined PA and lateral XR CHEST PA AND LATERAL Imaging Routine SOB (shortness of breath) on exertion Expected: 10/30/2019, Expires: 10/29/2020 [facility] Comment on above: Expected: 10/30/2019, Expires: Start: 04-22-2019 Influenza vaccination [facility] Start: 04-22-2019 Influenza vaccination given SEQUENTIAL INFLUENZA VACCINE (#1) [facility] Start: 02-07-2019 Potassium [Moles/Vol] POTASSIUM [facility] Start: 02-07-2019 Prostate specific antigen measurement PROSTATE CANCER SCREENING DISCUSSION [facility] Start: 10-06-2018 End: 10-06-2018 Office Visit 10/06/2018 Office Visit Orthopedic Surgery Sb Andino MD [facility] [place] [address] [phone] [facility] Start: 08-08-2018 End: 08-08-2018 Ambulatory 08/08/2018 Office Visit Orthopedic Surgery Roe Davey MD [address] [place] [address] [phone] [facility] Start: 08-04-2018 End: 08-04-2018 Ambulatory 08/04/2018 Office Visit Orthopedic Surgery Sb Andino MD [address] [facility] [place] [address] [phone] [facility] Start: 06-20-2018 End: 06-20-2018 Ambulatory 06/20/2018 Office Visit Sports Medicine Daniel Hammer MD [address] [place] [address] [phone] [facility] Start: 06-06-2018 End: 06-06-2018 Ambulatory 06/06/2018 Office Visit Sports Medicine Daniel Hammer MD [address] [place] [address] [phone] [facility] Start: 05-15-2018 End: 05-15-2018 Ambulatory 05/15/2018 Office Visit Orthopedic Surgery Sb Andino MD [address] [place] [address] [phone] [facility] Start: 05-02-2018 End: 05-02-2018 Ambulatory 05/02/2018 Office Visit Sports Medicine Daniel Hammer MD [address] [place] [address] [phone] [facility] Start: 04-22-2018 Influenza vaccination [facility] Start: 04-22-2018 Influenza vaccination given SEQUENTIAL INFLUENZA VACCINE (#1) [facility] Start: 04-13-2018 Ambulatory 04/13/2018 Hospital Encounter Sb Andino MD [address] [place] [address] [phone] [facility] Start: 04-11-2018 End: 04-11-2018 Ambulatory 04/11/2018 Office Visit Sports Medicine Paulino Rodrigues MD [address] [place] [address] [phone] Daniel Hammer MD [address] [place] [address] [phone] [facility] Start: 11-02-2017 HbA1c (Bld) [Mass fraction] A1C [facility] Start: 04-22-2017 Influenza vaccination SEQUENTIAL INFLUENZA VACCINE (#1) [facility] Work Phone: Start: 2016 Administration of herpes zoster vaccine Zoster Vaccines (1 of 2) [facility] Start: 2016 Colon cancer screen colonoscopy Colon cancer screen colonoscopy [place], [place] Start: 2016 Colonoscopy [facility] Start: 2016 Protein mass conc COLON CANCER SCREENING DISCUSSION [facility] Start: 2016 RSV Vaccines (1 - Risk 50-74 years 1-dose series) RSV Vaccines (1 - Risk 50-74 years 1-dose series) [facility] Start: 2016 Screening for malignant neoplasm of colon [facility] Start: 2016 Shingles Vaccine (1 of 2) Shingles Vaccine (1 of 2) [place], [place] Start: 2016 Zoster vaccine hzv live for subcutaneous use ZOSTER (SHINGLES) VACCINE (1 of 2) [facility] Start: 09-15-2015 Pneumococcal Vaccine: 50+ Years (2 of 2 - PCV) Pneumococcal Vaccine: 50+ Years (2 of 2 - PCV) [facility] Start: 09-15-2015 Pneumococcal Vaccine: Age 50+ (2 of 2 - PCV) Pneumococcal Vaccine: Age 50+ (2 of 2 - PCV) [facility] Start: 09-15-2015 Pneumococcal Vaccine: Ped or At-Risk (2 - PCV) Pneumococcal Vaccine: Ped or At-Risk (2 - PCV) [facility] Start: 09-15-2015 Pneumococcal Vaccine: Ped or At-Risk (2 of 2 - PCV) Pneumococcal Vaccine: Ped or At-Risk (2 of 2 - PCV) [facility] Start: 2011 Colonoscopy COLORECTAL CANCER SCREENING DISCUSSION [facility] Start: 2011 Screening for malignant neoplasm of colon COLORECTAL CANCER SCREENING DISCUSSION [facility] Start: 2006 Diabetes screen Diabetes screen [place], [place] Start: 2006 Lipid screen Lipid screen [place], [place] Start: 1985 DTaP/Tdap/Td vaccine (1 - Tdap) DTaP/Tdap/Td vaccine (1 - Tdap) [facility] Start: 1985 Hepatitis A immunization Hepatitis A Vaccines (1 of 2 - Risk 2-dose series) [facility] Start: 1985 Hepatitis B vaccination Hepatitis B Vaccines (1 of 3 - 19+ 3-dose series) [facility] Start: 1985 Third diphtheria, tetanus and acellular pertussis (DTaP) vaccination TDAP (ADULT) [facility] Start: 1984 Hepatitis C antibody, confirmatory test Hepatitis C Screening [facility] Start: 1984 Hepatitis C screening Hepatitis C Screening [facility] Start: 1984 Tetanus vaccination TETANUS [facility] Start: 1982 COVID-19 Vaccine (1 of 2) COVID-19 Vaccine (1 of 2) [facility] Start: 1982 COVID-19 Vaccine (1) COVID-19 Vaccine (1) [facility] Start: 1981 HIV screen HIV screen [place], [place] Start: 1981 HIV screening [facility] Start: 1979 HIV screening HIV SCREENING DISCUSSION [facility] Start: 1978 Adolescent depression screening assessment Depression Screening (PHQ9) [facility] Start: 1978 COVID-19 Vaccine (1) COVID-19 Vaccine (1) [facility] Start: 1978 Depression screening using PHQ-9 (Patient Health Questionnaire 9) score [facility] Start: 1976 Albumin DL <= 20 mg/L (U) [Mass/Vol] Urine Microalbumin [facility] Start: 1976 Diabetic foot examination [facility] Start: 1976 Glaucoma screening Diabetic Eye Exam [facility] Start: 1976 Ophthalmic examination and evaluation Ophthalmology Exam [facility] Start: 1976 Urine screening for protein Urine (micro)albumin/creatinine ratio - Diabetes [facility] Start: 1972 Pneumococcal 0-64 years Vaccine (1 of 1 - PPSV23) Pneumococcal 0-64 years Vaccine (1 of 1 - PPSV23) [place], [place] Start: 1972 Pneumococcal Vaccine: Ped or At-Risk (1 of 2 - PPSV23) Pneumococcal Vaccine: Ped or At-Risk (1 of 2 - PPSV23) [facility] Start: 1971 COVID-19 VACCINE (1) COVID-19 VACCINE (1) [facility] Start: 1969 History and physical examination, annual for health maintenance Wellness Visit [facility] Start: 1969 Medicare Wellness Visit [facility] Start: 1967 [id number] vaccination MMR Vaccines (1 of 1 - Standard series) [facility] Start: 01-09-1967 COVID-19 VACCINE (#1) COVID-19 VACCINE (#1) [facility] Start: 1966 Depression screening using PHQ-9 (Patient Health Questionnaire 9) score Depression Screening (PHQ9) [facility] Start: 1966 Hepatitis B vaccination HEP B VACCINE (1 of 3 - 3-dose series) [facility] Start: 1966 Hepatitis C antibody, confirmatory test HEPATITIS C VIRUS SCREENING [facility] Start: 1966 Prostate specific antigen measurement PSA Level [facility] Start: 1966 Protein mass conc COLONOSCOPY [facility] Start: 1966 Screening colonoscopy COLONOSCOPY [facility] Work Phone: Start: 1966 Screening for malignant neoplasm of colon [facility] Start: 1966 Tetanus vaccination [facility] End: 04-21-2022 Aerobic microbial culture Wound Aerobic Culture Microbiology Routine Once for 1 Occurrences starting 04/21/2022 until 04/21/2022 [facility] Work Phone: Comment on above: Once for 1 Occurrences starting 04/21/20 22 until 04/21/2022 Aerobic microbial culture Wound Aerobic Culture Microbiology Routine Ulcer of left lower extremity with fat layer exposed (HCC) 07/15/2023 8:44 AM EST [facility] Work Phone: Aerobic microbial culture Wound Aerobic Culture Microbiology Routine Ulcer of left lower extremity with fat layer exposed (HCC) 07/29/2023 1:45 PM EST [facility] Work Phone: ANCA INIT SCRN (ANCA , PR3AB, MPO) ANCA INIT SCRN (ANCA, PR3AB, MPO) Lab Today 11/14/2021 10:17 AM EDT [facility] Angiotensin converti ng enzyme [Enzymatic activity/volume] in Serum or Plasma ANGIOTENSIN CONVERTING ENZYME Lab Today 11/14/2021 10:17 AM [facility] End: 07-03-2024 Aspergillus Galactomannan Antigen [facility] Comment on above: Once for 1 Occurrences starting 07/03/20 until 07/03/2024 End: 07-08-2020 Bacteria identified Aer cx Nom (Sput) Sputum Aerobic Culture Microbiology Routine Once for 1 Occurrences starting 07/08/2020 until 07/08/2020 [facility] Comment on above: Once for 1 Occurrences starting 07/08/20 until 07/08/2020 Bacteria identified Aer cx Nom (Sput) Sputum Aerobic Culture Microbiology Routine 12/03/2020 5:49 PM EDT [facility] Bacteria identified Cx Nom (Bld) [facility] Bacteria identified in Blood by Culture [facility] Bacteria identified in Blood by Culture [facility] Work Phone: End: 02-26-2023 Bacteria identified in Blood by Culture [facility] Comment on above: One Time for 1 Occurrences starting 03/2023 until 02/26/2023 Bacteria identified in Blood by Culture Blood Culture Aerobic/Anaerobic Microbiology [facility] 04/02/2025 1:31 PM EDT [facility] Work Phone: Bacteria identified in Blood by Culture Blood Culture Aerobic/Anaerobic Microbiology [facility] 05/11/2025 8:53 PM EDT [facility] Work Phone: End: 07-05-2024 Bacteria identified in Sputum by Aerobe culture Sputum Aerobic Culture Microbiology Routine Once for 1 Occurrences starting 07/05/2024 until 07/05/2024 [facility] Comment on above: Once for 1 Occurrences starting 07/05/20 until 07/05/2024 End: 04-20-2022 Bacteria identified in Unspecified specimen by Aerobe culture [facility] Work Phone: Comment on above: Once for 1 Occurrences starting 04/20/20 until 04/20/2022 Bacterial culture an d sensitivity CULTURE WOUND Microbiology Today Venous stasis ulcer of right lower leg with edema of right lower leg Chronic venous insufficiency Lymphedema 12/28/2022 2:20 PM EDT [facility] End: 11-07-2019 Basic Metabolic Panel w/ Reflex to MG Basic Metabolic Panel w/ Reflex to MG Lab Routine Tomorrow AM for 1 Occurrences starting 11/07/2019 until 11/07/[facility] Tomorrow AM for 1 Occurrences starting 0 11/07/2019 until 11/07/2019 Body Fluid Aerobic & Anaerobic Culture Body Fluid Aerobic & Anaerobic Culture Microbiology Routine Effusion of right knee Synovitis Abscess of knee, right History of total right knee replacement 05/09/2025 2:39 PM EDT [facility] Work Phone: End: 05-09-2026 Body Fluid Aerobic & Anaerobic Culture Body Fluid Aerobic & Anaerobic Culture Microbiology Routine Effusion of right knee Synovitis Abscess of knee, right History of total right knee replacement 1 Occurrences starting 05/09/2025 until 05/09/2026 [employer] Work Phone: Comment on above: 1 Occurrences starting 05/09/2025 until 05/09/2026 Body Fluid Aerobic & Anaerobic Culture [facility] Work Phone: Comment on above: Ordered: 05/09/2025 CARDIOLIPIN AB (IGG, IGA, IGM) CARDIOLIPIN AB (IGG, IGA, IGM) Lab Today 11/14/2021 1:53 PM EDT [employer] [facility] End: 11-07-2019 CBC auto differential CBC auto differential Lab Routine Tomorrow AM for 1 Occurrences starting 11/07/2019 until 11/07/2019 [facility] above: Tomorrow AM for 1 Occurrences starting 0 11/07/2019 until 11/07/2019 Change of dressing OR DRESSING C HANGE OR - OFFICE PERFORMED Routine Venous stasis ulcer of right lower leg with edema of right lower leg Chronic venous insufficiency Ordered: 11/16/2022 [facility] Comment on above: Ordered: 11/16/2022 Change of dressing OR DRESSING C HANGE OR - OFFICE PERFORMED Routine Venous stasis ulcer of right lower leg with edema of right lower leg Chronic venous insufficiency Lymphedema Ordered: 11/23/2022 [facility] Comment on above: Ordered: 11/23/2022 Change of dressing OR DRESSING C HANGE OR - OFFICE PERFORMED Routine Venous stasis ulcer of right lower leg with edema of right lower leg Chronic venous insufficiency Ordered: 11/30/2022 [facility] Comment on above: Ordered: 11/30/2022 Change of dressing OR DRESSING C HANGE OR - OFFICE PERFORMED Routine Venous stasis ulcer of right lower leg with edema of right lower leg Chronic venous insufficiency Lymphedema Ordered: 12/14/2022 [facility] Comment on above: Ordered: 12/14/2022 Change of dressing OR DRESSING C HANGE OR - OFFICE PERFORMED Routine Venous stasis ulcer of right lower leg with edema of right lower leg Chronic venous insufficiency Lymphedema Ordered: 12/21/2022 [facility] Comment on above: Ordered: 12/21/2022 Change of dressing OR DRESSING C HANGE OR - OFFICE PERFORMED Routine Venous stasis ulcer of right lower leg with edema of right lower leg Chronic venous insufficiency Lymphedema Ordered: 12/28/2022 [facility] Comment on above: Ordered: 12/28/2022 Change of dressing OR DRESSING C HANGE OR - OFFICE PERFORMED Routine Venous stasis ulcer of right lower leg with edema of right lower leg Chronic venous insufficiency Ordered: 01/18/2023 [facility] Comment on above: Ordered: 01/18/2023 Change of dressing OR DRESSING C HANGE OR - OFFICE PERFORMED Routine Venous stasis ulcer of right lower leg with edema of right lower leg Chronic venous insufficiency Lymphedema Foot mass, right Ordered: 01/25/2023 [facility] Comment on above: Ordered: 01/25/2023 Change of dressing OR DRESSING C HANGE OR - OFFICE PERFORMED Routine Venous stasis ulcer of right lower leg with edema of right lower leg Chronic venous insufficiency Lymphedema Foot mass, right Ordered: 02/08/2023 [facility] Comment on above: Ordered: 02/08/2023 Change of dressing OR DRESSING C HANGE OR - OFFICE PERFORMED Routine Venous stasis ulcer of right lower leg with edema of right lower leg Chronic venous insufficiency Lymphedema Ordered: 02/15/2023 [facility] Comment on above: Ordered: 02/15/2023 Change of dressing OR DRESSING C HANGE OR - OFFICE PERFORMED Routine Pressure ulcer of right foot, stage 3 Venous stasis ulcer of right lower leg with edema of right lower leg Lymphedema Chronic venous insufficiency Venous stasis ulcer of left lower leg with edema of left lower leg Ordered: 04/26/2023 [facility] Comment on above: Ordered: 04/26/2023 End: 03-08-2019 CRP, Inflammation CRP, Inflammation Routine Arthralgia, unspecified joint 1 Occurrences starting 03/07/2018 until 03/08/2019 [facility] CRYOGLOBULIN CRYOGLOBULIN Lab Today 11/15/2021 4:30 AM [facility] End: 03-31-2019 CT Foot Right Without Contrast CT Foot Right Without Contrast Routine Arthritis of foot, right Acquired pes planovalgus, right 1 Occurrences starting 03/31/2018 until 03/31/2019 [facility] End: 11-06-2019 Culture, Blood 1 Culture, Blood 1 Microbiology STAT One Time for 1 Occurrences starting 11/06/2019 until 11/06/2019 [facility] on above: One Time for 1 Occurrences starting 10/20 until 11/06/2019 Culture, Blood 1 Culture, Blood 1 Microbiology STAT [facility]: 11-06-2019 Culture, Blood 2 Culture, Blood 2 Microbiology STAT One Time for 1 Occurrences starting 11/06/2019 until 11/06/2019 [facility] Comment on above: One Time for 1 Occurrences starting 10/20 until 11/06/2019 Culture, Blood 2 Culture, Blood 2 Microbiology Stat [employer] Label print 11/06/2019 2:10 AM [facility] [place] Culture, Respiratory Culture, Re spiratory Microbiology Stat [employer] Label print 11/06/2019 [facility] CYCLIC CITRULLINATE PEPTIDE AB CYCLIC CITRULLINATE PEPTIDE AB Lab Today 11/14/2021 4:35 AM [facility] End: 03-08-2019 Cyclic citrullinated peptide antibody CCP Antibody Routine Arthralgia, unspecified joint 1 Occurrences starting 03/07/2018 until 03/08/2019 [facility] End: 03-30-2021 Diagnostic radiography of toes XR TOE 1ST RIGHT Imaging Routine One Time for 1 Occurrences starting 03/30/2021 until 03/30/2021 [facility] Work Phone: Comment on above: One Time for 1 Occurrences starting 0804/2021 until 03/30/2021 End: 11-13-2021 [facility] Comment on above: One Time for 1 Occurrences starting 10/21 until 11/13/2021 End: 03-08-2019 Erythrocyte sedimentation rate Sedimentation Rate Routine Arthralgia, unspecified joint 1 Occurrences starting 03/07/2018 until 03/08/2019 [facility] FUNGITELL ASSAY FUNGITELL ASSAY Lab Today 11/14/2021 10:17 AM [facility] End: 07-03-2024 Fungus serologic study [facility] Work Phone: Comment on above: Once for 1 Occurrences starting 07/03/20 until 07/03/2024 HAPTOGLOBIN HAPTOGLOBIN Lab Today 11/14/2021 1:53 PM [facility] Hepatitis A virus Ig M Ab [Presence] in Serum or Plasma by Immunoassay HEPATITIS A IGM AB Lab Today 11/14/2021 4:35 AM [facility] Comment on above: Every 4hr while awake until discontinued starting 11/06/2019 Every 2hr As Needed until discontinued starting 11/06/2019 End: 07-03-2024 Histoplasma Ab CompFix/ImmDiff, Serum Histoplasma Ab CompFix/ImmDiff, Serum Lab Routine Once for 1 Occurrences starting 07/03/2024 until 07/03/2024 [facility] Comment on above: Once for 1 Occurrences starting 07/03/20 until 07/03/2024 MARINA AND PE, SERUM MARINA AND PE, SE RUM Lab Today 11/14/2021 10:17 AM [facility] Initiate Oxygen Ther apy Protocol [facility] Comment on above: Daily until discontinued starting 2019, 2 completed Daily until disconti nued starting 11/06/2019 End: 07-05-2024 Legionella antigen assay Legionella Antigen, Urine Microbiology Routine Once for 1 Occurrences starting 07/05/2024 until 07/05/2024 [facility] Comment on above: Once for 1 Occurrences starting 07/05/20 until 07/05/2024 M TUBERCULOSIS BY QUANTIFERON, BLD M TUBERCULOSIS BY QUANTIFERON, BLD Lab Today 11/14/2021 10:17 AM [facility] End: 07-05-2024 Microbial culture, body fluid [facility] Work Phone: Comment on above: Once for 1 Occurrences starting 07/05/20 until 07/05/2024 Procedure on tissue specimen [facility] Comment on above: Release Upon Ordering for 1 Occurrences starting 01/08/2020, 1 completed Pulse Oximetry Spot Check Pulse Oximetry Spot Check Respiratory Care Routine Every 8hr until discontinued starting 11/06/2019 [facility] Comment on above: Every 8hr until discontinued starting End: 07-05-2024 Respiratory pathogens DNA and RNA panel - Nasopharynx by HERMAN with non-probe detection Respiratory PCR Panel Microbiology Routine Once for 1 Occurrences starting 07/05/2024 until 07/05/2024 [facility] Comment on above: Once for 1 Occurrences starting 07/05/20 24 until 07/05/2024 End: 03-08-2019 Rheumatoid factor Rheumatoid factor Routine Arthralgia, unspecified joint 1 Occurrences starting 03/07/2018 until 03/08/2019 [facility] Rmvl prosth tot knee prosth mma w/wo insj spacer ARTHROTOMY KNEE WITH SPACER INSERTION Abscess of knee, right History of total right knee replacement [facility] [place] Serum immunofixation Immunofixat ion, Serum Lab Routine 07/08/2020 4:42 PM EST [facility] End: 11-06-2019 Sputum induction Sputum induction Respiratory Care Routine One Time for 1 Occurrences starting 11/06/2019 until 11/06/2019 [facility] Comment on above: One Time for 1 Occurrences starting 10/20 until 11/06/2019 Standard ECG ECG ECG STAT 7:16 PM EDT [facility] End: 03-16-2023 Standard ECG ECG ECG STAT One Time for 1 Occurrences starting 03/16/2023 until 03/16/2023 [facility] Work Phone: Comment on above: One Time for 1 Occurrences starting 02/20 until 03/16/2023 Strapping unna boot OR APPLY OF UNNA BOOT OR - OFFICE PERFORMED Routine Venous stasis ulcer of right lower leg with edema of right lower leg Chronic venous insufficiency Ordered: 11/16/2022 [employer] [facility] Comment on above: Ordered: 11/16/2022 Strapping unna boot OR APPLY OF UNNA BOOT OR - OFFICE PERFORMED Routine Venous stasis ulcer of right lower leg with edema of right lower leg Chronic venous insufficiency Ordered: 11/30/2022 [facility] Comment on above: Ordered: 11/30/2022 Strapping unna boot OR APPLY OF UNNA BOOT OR - OFFICE PERFORMED Routine Venous stasis ulcer of right lower leg with edema of right lower leg Chronic venous insufficiency Lymphedema Ordered: 12/14/2022 [facility] Comment on above: Ordered: 12/14/2022 Strapping unna boot OR APPLY OF UNNA BOOT OR - OFFICE PERFORMED Routine Venous stasis ulcer of right lower leg with edema of right lower leg Chronic venous insufficiency Lymphedema Ordered: 12/21/2022 [facility] Comment on above: Ordered: 12/21/2022 Strapping unna boot OR APPLY OF UNNA BOOT OR - OFFICE PERFORMED Routine Venous stasis ulcer of right lower leg with edema of right lower leg Chronic venous insufficiency Lymphedema Ordered: 12/28/2022 [facility] Comment on above: Ordered: 12/28/2022 Strapping unna boot OR APPLY OF UNNA BOOT OR - OFFICE PERFORMED Routine Venous stasis ulcer of right lower leg with edema of right lower leg Chronic venous insufficiency Ordered: 01/18/2023 [facility] Comment on above: Ordered: 01/18/2023 Strapping unna boot OR APPLY OF UNNA BOOT OR - OFFICE PERFORMED Routine Venous stasis ulcer of right lower leg with edema of right lower leg Chronic venous insufficiency Lymphedema Foot mass, right Ordered: 01/25/2023 [facility] Comment on above: Ordered: 01/25/2023 Strapping unna boot OR APPLY OF UNNA BOOT OR - OFFICE PERFORMED Routine Venous stasis ulcer of right lower leg with edema of right lower leg Chronic venous insufficiency Lymphedema Ordered: 02/15/2023 [facility] Comment on above: Ordered: 02/15/2023 End: 07-05-2024 Streptococcus pneumoniae antigen assay S. pneumoniae Urine Antigen Microbiology Routine Once for 1 Occurrences starting 07/05/2024 until 07/05/2024 [facility] Comment on above: Once for 1 Occurrences starting 07/05/20 24 until 07/05/2024 Surgical Site Aerobi c & Anaerobic Culture [facility] Work Phone: Surgical Site Aerobi c Culture Surgical Site Aerobic Culture Microbiology Routine Primary osteoarthritis of right knee 01/08/2020 7:42 AM EDT [facility] Surgical Site Anaero bic Culture [facility] Comment on above: Release Upon Ordering for 1 Occurrences starting 01/08/2020 Thalassemia and Hemoglobinopathy Profile Thalassemia and Hemoglobinopathy Profile Lab Routine 07/08/2020 4:42 PM EST [facility] Transthoracic echocardiography ECHOCARDIOGRAM Echocardiography Routine Essential hypertension SOB (shortness of breath) on exertion Leg edema Ordered: 10/30/2019 [employer] Comment on above: Ordered: 10/30/2019 End: 03-08-2019 Uric Acid Uric Acid Routine Arthralgia, unspecified joint 1 Occurrences starting 03/07/2018 until 03/08/2019 [facility] Urine immunofixation Immunofixat ion, Urine Lab Routine 07/08/2020 4:42 PM EST [facility] End: 11-07-2019 Vancomycin, trough Vancomycin, trough Lab Timed One Time for 1 Occurrences starting 11/07/2019 until 11/07/2019 [facility] on above: One Time for 1 Occurrences starting 10/20 until 11/07/2019 Wound Aerobic And Anaerobic Culture Wound Aerobic And Anaerobic Culture Microbiology Routine 05/12/2025 1:55 AM EDT [facility] X-ray of left foot XR Foot Left 3+ Views (Standard) Imaging Routine Pain 04/22/2020 2:18 PM EDT [facility] End: 03-07-2019 XR Ankle Right 3+ Views (Standard) XR Ankle Right 3+ Views (Standard) Routine Arthralgia, unspecified joint 1 Occurrences starting 03/07/2018 until 03/07/2019 [facility] XR Chest PA and Abdo men AP XR Chest 1 View Imaging Routine 04/05/2025 10:34 AM T [facility] Work Phone: XR Clavicle Right XR Clavicle Ri ght Imaging JENNY 02/02/2021 4:05 PM EDT [facility] End: 03-07-2019 XR Foot Right 3+ Views (Standard) XR Foot Right 3+ Views (Standard) Routine Arthralgia, unspecified joint 1 Occurrences starting 03/07/2018 until 03/07/2019 [facility] End: 03-07-2019 XR Hip Right With Pelvis 2-3 Views (Routine) XR Hip Right With Pelvis 2-3 Views (Routine) Routine Arthralgia, unspecified joint 1 Occurrences starting 03/07/2018 until 03/07/2019 [facility] End: 03-07-2019 XR Knee Right 3 Views (Specify Views in Comments) XR Knee Right 3 Views (Specify Views in Comments) Routine Arthralgia, unspecified joint 1 Occurrences starting 03/07/2018 until 03/07/2019 [facility] End: 10-18-2025 XR Thoracic spine 3 Views XR Thoracic Spine 3 Views (Standard) Imaging Routine Compression fracture of T7 vertebra, initial encounter ([facility]) 1 Occurrences starting 10/18/2024 until 10/18/2025 [facility] Work Phone: Comment on above: 1 Occurrences starting 10/18/2024 until 10/18/2025 Immunizations Immunization Date Immunization Notes Care Provider Fa [facility] 02-26-2023 tetanus toxoid, reduced diphtheria toxoid, and acellular pertussis vaccine, adsorbed Shai Leonard MD Work Phone: [facility] 09-15-2014 influenza virus vaccine, unspecified formulation Shai Leonard MD Work Phone: [facility] NEGATED: Highlighted row has not occurred!01-09-2024 influenza, seasonal, injectable Patient objection Dr. Reg Hartman [facility] NEGATED: Highlighted row has not occurred!01-09-2024 Pneumococcal conjugate vaccine 20-valent (PCV20), polysaccharide [id number] conjugate, adjuvant, preservative free Patient objection Dr. Reg Hartman [facility] NEGATED: Highlighted row has not occurred!01-09-2024 SARS-COV-2 (COVID-19) vaccine, mRNA, spike protein, LNP, preservative free, 25 mcg/0.25 mL dose Patient objection Dr. Reg Hartman [facility] Payers Date Payer Category Payer Medicare HMO [employer]M MEDIBLUE ESSENTIAL/PLUS/CONNECT/SNP HMO [id number] 2022 Medicare [id number] 2021 Unknown [id number] 2020 Medicaid [id number]. [id number] 2020 Medicaid [id number]. 1.13.172.2.7.3. [id number] 2020 Medicare [id number].7.3. [id number] 2020 Medicare [id number]. 1.13.172.2.7.3. [id number] 2020 Medicaid [id number] 2020 Medicare [id number] 2013 Medicaid [id number]. [id number] 2013 Medicaid [id number] 1.2.840.623543.1.13.385.2.7.3. [id number] 2013 Medicaid [id number] 2.16.840.1.377607.3.249.13 1966 Unknown [id number] 2.16.840.1.605167.3.579.2.174 1966 Unknown [id number] 2.16.840.1.094520.3.579.2.174 1966 Unknown [id number] 2.16.840.1.208187.3.579.2.174 1966 Unknown [id number] 2.16.840.1.834201.3.579.2.903 1966 Unknown [id number] 2.16.840.1.179553.3.579.2.903 1966 Unknown [id number] 2.16.840.1.886964.3.579.2.903 1966 Unknown [id number] 2.16.840.1.533179.3.579.2.903 1966 Unknown [id number] 2.16.840.1.063652.3.579.2.174 1966 Unknown [id number] 2.16.840.1.600768.3.579.2.983 1966 Unknown [id number] 2.16.840.1.306852.3.579.2.983 1966 Unknown [id number] 2.16.840.1.135716.3.579.2.983 1966 Unknown [id number] 2.16.840.1.155749.3.579.2.983 1966 Unknown [id number] 2.16.840.1.729728.3.579.2.983 1966 Unknown [id number] 2.16.840.1.682650.3.579.2.983 1966 Unknown [id number] 2.16.840.1.321427.3.579.2.983 1966 Unknown [id number] 2.16.840.1.900427.3.579.2.983 1966 Unknown [id number] 2.16.840.1.590910.3.579.2.983 1966 Unknown [id number] 2.16.840.1.296127.3.579.2.983 1966 Unknown [id number] 2.16.840.1.866402.3.579.2.983 1966 Unknown [id number] 2.16.840.1.372094.3.579.2.983 1966 Unknown [id number] 2.16.840.1.415601.3.579.2.983 1966 Unknown [id number] 2.16.840.1.872595.3.579.2.983 1966 Unknown [id number] 2.16.840.1.457649.3.579.2.983 1966 Unknown [id number] 2.16.840.1.095948.3.579.2.983 1966 Unknown [id number] 2.16.840.1.699763.3.579.2.983 1966 Unknown [id number] 2.16.840.1.628267.3.579.2.983 1966 Unknown [id number] 2.16.840.1.191736.3.579.2.983 1966 Unknown [id number] 2.16.840.1.282654.3.579.2.983 1966 Unknown [id number] 2.16.840.1.554702.3.579.2.983 1966 Unknown [id number] 2.16.840.1.075896.3.579.2.983 1966 Unknown [id number] 2.16.840.1.224954.3.579.2.983 1966 Unknown [id number] 2.16.840.1.510746.3.579.2.983 1966 Unknown [id number] 2.16.840.1.347309.3.579.2.983 1966 Unknown [id number] 2.16.840.1.996825.3.579.2.983 1966 Unknown [id number] 2.16.840.1.751745.3.579.2.983 1966 Unknown [id number] 2.16.840.1.272215.3.579.2.983 1966 Unknown [id number] 2.16.840.1.626681.3.579.2.983 1966 Unknown [id number] 2.16.840.1.864739.3.579.2.983 1966 Unknown [id number] 2.16.840.1.762942.3.579.2.983 1966 Unknown [id number] 2.16.840.1.684834.3.579.2.98 1966 Unknown [id number] 2.16.840.1.673863.3.579.2.983 1966 Unknown [id number] 2.16.840.1.424413.3.579.2. 1966 Unknown [id number] 2.16.840.1.899981.3.579.2.983 1966 Unknown [id number] 2.16.840.1.162148.3.579.2.98 1966 Unknown [id number] 2.16.840.1.927777.3.579.2.983 1966 Unknown [id number] 2.16.840.1.415124.3.579.2. 1966 Unknown [id number] 2.16.840.1.207111.3.579.2.983 1966 Unknown [id number] 2.16.840.1.347660.3.579.2.983 1966 Unknown [id number] 2.16.840.1.533554.3.579.2.983 1966 Unknown [id number] 2.16.840.1.135737.3.579.2.983 1966 Unknown [id number] 2.16.840.1.960635.3.579.2.983 1966 Unknown [id number] 2.16.840.1.236919.3.579.2.983 1966 Unknown [id number] 2.16.840.1.254377.3.579.2.903 1966 Unknown [id number] 2.16.840.1.218012.3.579.2.90 1966 Unknown [id number] 2.16.840.1.856959.3.579.2.903 1966 Unknown [id number] 2.16.840.1.144191.3.579.2.90 1966 Unknown [id number] 2.16.840.1.370523.3.579.2.983 1966 Unknown [id number] 2.16.840.1.032086.3.579.2.983 1966 Unknown [id number] 2.16.840.1.987542.3.579.2.983 1966 Unknown [id number] 2.16.840.1.482684.3.579.2.900 1966 Unknown [id number] 2.16.840.1.492369.3.579.2.900 1966 Unknown [id number] 2.16.840.1.337424.3.579.2.90 1966 Unknown [id number] 2.16.840.1.571130.3.579.2.90 1966 Unknown [id number] 2.16.840.1.348760.3.579.290 1966 Unknown [id number] 2.16.840.1.722767.3.579.2.90 1966 Unknown [id number] 2.16.840.1.352989.3.579.2.90 1966 Unknown [id number] 2.16.840.1.971104.3.579.2.903 1966 Unknown [id number] 1965 Unknown [id number] 1965 Unknown [id number] 1965 Unknown [id number] 1965 Unknown [id number] 1966 Unknown [id number] 1965 Unknown [id number] [id number] 1965 Unknown [id number] 1965 Unknown [id number] 1965 Unknown [id number] [id number] 1965 Unknown [id number] 1965 Unknown [id number] Social History Date Type Detail Facility Start: 01-25-2017 End: 01-02-2025 Tobacco smoking status NHIS Former smoker [facility] Start: 08-22-1984 End: 09-27-2011 History of tobacco use Current smoker [employer] Phone: History of tobacco use [employer] Phone: Start: 1965 Sex Assigned At Not on file [employer] Phone: Start: 08-22-1984 End: 08-22-2007 History of tobacco use [facility] Start: 04-05-2019 End: 05-12-2025 Alcohol intake Not Currently [facility] Start: 09-21-2019 End: 01-15-2021 Alcohol intake Current non-drinker of alcohol (finding) [facility] Start: 09-27-2021 End: 03-16-2023 Exposure to SARS-CoV-2 (event) Not sure [facility] Start: 10-30-2019 End: 06-20-2025 Alcohol intake Ex-drinker (finding) [facility] History of tobacco use Snuff User [facility] [place] [place] Start: 04-22-2020 End: 01-02-2025 Tobacco use and exposure Current user [facility] Start: 07-07-2020 End: 12-03-2020 History SDOH Alcohol Frequency 1 [facility] Exposure to SARS-CoV -2 (event) Unable to assess [facility] Start: 05-03-2022 History SDOH Alcohol Comment quit drinking aprox [address] [facility] [employer] [facility] Work Phone: Start: 02-08-2023 End: 05-12-2025 History of Social function [facility] Start: 05-17-2017 Gender identity Identifies as male gender (finding) [facility] How often to you hav e a drink containing alcohol? Never [facility] Average Number of Drinks Not on file [facility] Start: 06-14-2018 Sexual orientation Heterosexual (finding) [facility] History of tobacco use Passive smoker [...] the mortgage or rent on time? No [facility] Start: 05-22-2024 Unknown if ever smoked Juan F Sum[facility] [employer] (I/We) worried wheth er (my/our) food would run out before (I/we) got money to buy more. Sometimes true [facility] Medical Equipment Procedure Code Equipment Code Equipment Origin al Text Equipment Identifier Dates Baseplate Sz5 Ti bial Tritanium Triathlon - [id number] [id number] , [id number] FDA Start: 01-08-2020 Insert Sz5-10 Ti bial Cr X3 Triathlon [id number] - [id number] ()[id number] [id number], [id number] FDA Start: 01-08-2020 Component Sz5 Fe m Cr Rt Cementless Beaded W/Pa Triathlon - [id number] ()[id number] [id number], [id number] FDA Start: 01-08-2020 ()[id number] [id number], [id number] FDA Start: 01-08-2020 Goals Date Patient Goal [...] and elevating legs to better manage edema. [facility] Goals 3. 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 Reduce LE edema as demontrated [...] and elevating legs to better manage edema. [facility] Goals 3. Reduce LE edema as demontrated [...] Date & Type Note Facility 07-04-2025 Note [facility] 07-03-2025 Note [facility] 07-03-2025 Note [facility] 07-03-2025 Note [facility] 07-02-2025 Note [facility] 07-02-2025 Note [facility] 07-02-2025 Note [facility] 07-01-2025 Note CULTURE Culture in Progress GRAM STAIN RESULT Many WBC Many RBC No Organisms Seen [facility] Comment on above: Performed By: #### L [id number] ####[facility] [address] [place] [address] Venancio Richardson M.D. [id number] 07-01-2025 Note CULTURE Culture in Progress GRAM STAIN RESULT Many WBC Many RBC No Organisms Seen [facility] Comment on above: Performed By: #### L [id number] ####[facility] [address] [address] Venancio Richardson M.D. [id number] 07-01-[address] [facility] 06-20-2025 Note At this point in [...] AUTHENTICATED BY SOFÍA DUKES, ON 06/21/2025 09:06:26 [facility] 05-30-2025 Note Carmen comes in today for [...] AUTHENTICATED BY SOFÍA DUKES, ON 05/31/2025 17:10:19 [facility] 05-16-2025 Progress note Formatting of t his note might be different from the original. This nurse reviews discharge instructions with the patient. Patient states understanding. No further education is needed. Medications patient brought home that were sent to pharmacy have been returned by Medina MENDOZA [facility] 05-16-2025 Miscellaneous Notes This nurse reviews discharge instructions with the patient. Patient states understanding. No further education is needed. Medications patient brought home that were sent to pharmacy have been returned by Medina RN [id number] ENCOUNTER FOR HOME MEDICAL EQUIPMENT PATIENT: Carmen Gilman : 1965 Statement of Care: I certify that Carmen Gilman is under my care and that I, a Nurse Practitioner, had a tbgw-xo-sqxu encounter with this patient today to evaluate and discuss the need for home medical equipment. I certify that based on the findings of this evaluation, which included but was not limited to the pbpz-nm-ohxf requirements, the following home medical equipment is [...] (59 y.o.) Date of Service: 05/13/2025 [facility]: [id number] Procedure(s): INCISION AND DRAINAGE TOTAL KNEE Pre-Operative Diagnoses: * Right knee skin infection/abscess Post-Operative Diagnoses: * Same as Pre-Op Diagnosis Surgeons and Role: * Sofía Dukes MD - Primary Anesthesiologist: Bryson Kelley MD Anesthesiologist Manager Testing: Veronica Knapp AA Mountain Bike Guide: Abigail Camejo Scrub Person: Patel Burns ST PRESSER COTTON GINNING: Domo, Crystal L, RN Operative findings: see op note Intra [...] MD 05/13/2025 4:57 PM ATTENDING PHYSICIAN TATA CHANDRA [facility] PRIMARY CARE PHYSICIAN ANI WORLEY CNP [...] PACU without intraoperative complication. D 05/13/2025 17:01 [id number] 05/13/2025 17:45 MCB/MODL Wiliam Quintana Barry may skip 9am dose of vancomycin due to intolerance with potassium. Patient refusing 0600 dose of IV Lasix stating I was up all night pissing and now they want you to give me more? No, I am not taking that right now. Patient voices understanding the purpose of the [...] Absence of physical injury Outcome: Partially Met [facility] EMERGENCY DEPARTMENT ATTENDING NOTE: NAME: Carmen Gilman CSN: [id number] 59 y.o. ED Attestation: I have reviewed [...] all aspects of the MDM. In brief, Caremn is a 59 y.o. male who presents [...] unspecified cellulitis site documented in this encounter [facility] 05-16-2025 Note Juan F [facility] 05-16-2025 History of Present illness Narrative ATTENDING PHYSICIAN CAROLYN AJLLOH MD PRIMARY CARE PHYSICIAN ANI WORLEY CNP ADMITTING PHYSICIAN CARMEN CHARLES MD CONSULTING PHYSICIAN MD Carmen ALEMAN, at this point in time, 59-year-old, postoperative [...] do daily dressing changes. D 05/16/2025 13:36 [id number] 05/16/2025 15:14 MCB/MODL Date: 05/16/2025 Time: 11:40 AM Patient Name: Carmen Gilman Date of : 1965 Discharge Disposition Update: Discussed patient with Kathleen Dunham CNP. Patient is ready for discharge. Patient was accepted by [facility] for home health care services. SW educated patient on his insurance coverage and requested equipment. Patient understood and stated that he would be okay without the bariatric walker and tub bench as he has a standard walker and tub bench at home. D/C Disposition: Home Health Care Services Final D/C Agency/Destination: [facility] Care Plan A: Home Health Care Services Plan A : Post Acute Patient Choice 1[facility] Transportation: Discharge Disposition: Regulatory Documentation: Physical Therapy PHYSICAL THERAPY TREATMENT NOTE Skilled Therapy Needs After Discharge Anticipate Resolution of Current Assessment Limitations Including: Pain, Mechanical Barriers Are property management supervisor Therapy Services Needed After Discharge: Yes Intensity of property management supervisor Therapy: 5 to 7 days per week (Discussed PT concerns with returning home alone/ home safety/fall prevention. Pt is refusing any short term inpt rehabilitation and states he will only be agreeable to home health PT services. Pt report ESTEBAN will help him as needed) Anticipated Duration of property management supervisor Therapy: Duration 7 - 10 days PT [...] Stand by assist, with bilateral UE support Quality Controller - Standing Static: BUE, wheeled walker Standing Balance - Dynamic: Stand by assist, with bilateral UE support Quality Controller - Standing Dynamic: BUE, wheeled walker Loss of Balance- Standing Dynamic: (Unsteady throughout and declining to have SOFTWARE SYSTEMS ARCHITECT hold Gait belt.) Transfers Sit to Stand: Stand by assist (Patient rocking for momentum 4x for stand.) Bed to Chair: Stand by assist (to commode) Quality Controller: BUE, wheeled walker Skilled Intervention Provided: verbal cues, monitoring patient response with activity, patient education For: UE positioning, controlled descent, efficient movement, fall prevention, safety during functional tasks, safe use of AD and/or equipment, weight shifting Resulting in: decreased safety (Patient having no follow through with VC given for sequencing,Safety with AD management or for eccentric control for descent to chair. Patient ordering SOFTWARE SYSTEMS ARCHITECT to exit room before sitting on commode. Online Marketing Strategist declining to leave until patient was safely [...] refusing to have gait belt donned but SOFTWARE SYSTEMS ARCHITECT encouraging for safety. PAtient requiring bed to [...] PRN) Prior Level of Function Level of [place] - Transfers/Ambulation/Mobility: Independent with functional transfers, Independent with household ambulation (ambulates in home and in community with cane;) Level of [place] - ADLs: (ESTEBAN washes pt hair, legs and feet) Level of [place] - Homemaking: (ESTEBAN performs tasks) Driving: Patient [...] Therapy Plan of Care. Cosigned by Jumana Sanchez, PT at 05/16/2025 11:49 AM EDT ATTENDING PHYSICIAN [facility] PRIMARY CARE PHYSICIAN ANI WORLEY CNP [...] weeks in the office. D 05/15/2025 17:23 [id number] 05/15/2025 17:45 MCB/MODL Date: 05/15/2025 Time: [...] 1: [facility] Plan B: [facility] Transportation: Discharge Disposition: Regulatory Documentation: [facility] Patient name: Carmen Gilman Date of : 1965 Assessment and plan Carmen Gilman is a 59 y.o. male patient of Ani Worley CNP with history of Anxiety, Arrhythmia, Arthritis, COPD, DM, HTN, Left Knee Pain, Opioid Dependance, who presented to [facility] on 05/11/2025 with complaints of Rt [...] and make adjustments as needed. Please use [employer] to call pharmacy or secure chat the [...] 05/12/25 125.5 kg (276 lb 10.8 oz) [place] body weight: 77.6 kg (171 lb 1.2 [...] Pharmacy Personnel: Tiffanie Beavers RPh,PharmD Contact: or [facility] Initial Assessment Hx: DM, bilateral [...] Arthritis Asthma COPD (chronic obstructive pulmonary disease) ([facility]) Sometimes uses home O2 Diabetes (HCC) Hypertension [...] No Nutrition Related Allergies noted Cultural or Confucianism Dietary Needs :No Cultural or Confucianism Dietary needs noted Patient/family comments:s Difficulty Chewing [...] adj Kevan Palmer RD ATTENDING PHYSICIAN [facility] PRIMARY CARE PHYSICIAN ANI WORLEY [...] Further recommendations to follow. D 05/14/2025 13:24 [id number] 05/14/2025 13:42 MCB/MODL [facility] Patient name: Carmen Gilman Date of : 1965 Assessment and plan Carmen Gilman is a 59 y.o. male patient of Ani Worley CNP with history of Anxiety, Arrhythmia, Arthritis, COPD, DM, HTN, Left Knee Pain, Opioid Dependance, who presented to [facility] on 05/11/2025 with complaints of Rt [...] discoloration BLE Psych: normal mood and affect [facility] Patient name: Carmen Gilman Date of : 1965 Assessment and plan Carmen Gilman is a 59 y.o. male patient of Ani Worley CNP with history of Anxiety, Arrhythmia, Arthritis, COPD, DM, HTN, Left Knee Pain, Opioid Dependance, who presented to [facility] on 05/11/2025 with complaints of Rt [...] and make adjustments as needed. Please use [employer] to call pharmacy or secure chat the [...] 05/12/25 125.5 kg (276 lb 10.8 oz) [place] body weight: 77.6 kg (171 lb 1.2 [...] Pharmacy Personnel: Sorin Simons RPh,PharmD Contact: or [employer]oc[employer] [facility] Patient name: Carmen Gilman Date of : 1965 Assessment and plan Carmen Gilman is a 59 y.o. male patient of Ani Worley CNP with history of Anxiety, Arrhythmia, Arthritis, COPD, DM, HTN, Left Knee Pain, Opioid Dependance, who presented to [facility] on 05/11/2025 with complaints of Rt [...] and make adjustments as needed. Please use [employer] to call pharmacy or secure chat the [...] 1 Encounters: 05/09/25 120.2 kg (265 lb) [place] body weight: 77.6 kg (171 lb 1.2 oz) Adjusted ideal body weight: 94.6 kg (208 lb 10.3 oz) Patient Tmax (last 24 hours): 98 F Micro: pend Pharmacy Personnel: Yoly Birch RPh,PharmD Contact: or [employer] documented in this encounter [facility] 05-16-2025 Hospital course Narrative [facility] DISCHARGE SUMMARY -- [facility] Carmen Gilman : 1965 Admitted: 05/11/2025 [...] Pain, Opioid Dependance, who presented to [facility] on 05/11/2025 with complaints of Rt [...] recommended rehab facility, patient refused and wants [facility] Encouraged and discussed importance of compliance [...] . Quantity: 84 tablet naloxone 4 mg/actuation [place] Commonly known as: NARCAN Administer 1 spray [...] Physician(s) Follow Up: OTHER - NOT IN [facility] 9a-430 Address: [address] [place] [address] Servicing Counties: [phone] Condition at Discharge: Stable Disposition: Home with Home Health I reviewed discharge recommendations with the patient in person. Patient instructions, including activity, were given to the patient/family at discharge. On day of discharge I saw Carmen Gilman and spent: > 30 minutes on discharge. Completed by: Kathleen Dunham CNP on 05/16/25, 11:34 AM documented in this encounter [facility] 05-16-2025 Progress note Formatting of t his note might be different from the original. [id number] ENCOUNTER FOR HOME MEDICAL EQUIPMENT PATIENT: Carmen Gilman : 1965 Statement of Care: I certify that Carmen Gilman is under my care and that I, a Nurse Practitioner, had a twoo-ho-yfgd encounter with this patient today to evaluate and discuss the need for home medical equipment. I certify that based on the findings of this evaluation, which included but was not limited to the tboo-wq-oidz requirements, the following home medical equipment is medically necessary: Tub Bench and Bariatric Wheeled Walker for the treatment of mobility limitations to enable participation in mobility-related activities of daily living (MRADL) in the home. Based on the current evaluation, patient can safely use prescribed equipment to perform mobility-related activities of daily living (MRADL) in the home.. Signed by: Kathleen Dunham CNP on 05/16/2025 [facility] 05-16-2025 Progress note Formatting of t his note might be different from the original. Pt refused morning daily weight. [facility] 05-15-2025 Plan of care note Problem: [...] Absence of pressure injury Outcome: Partially Met [facility] 05-15-2025 Note Juan F [facility] 05-15-2025 Consult note Associated Order (s): IP CONSULT [facility] Date: 05/15/2025 Time: 3:58 PM Patient Name: Carmen Gilman Date of : 1965 Liaison received a [facility] consult for SN,PT,OT. [place]'s agency choice is [place] Name of [facility] agency: Pending / Accepted (if [facility], include region[facility] Referrals sent to: (names of agencies) [facility] pending [facility]-accepted Infusion pharmacy: (name) Referral pending or accepted? For OPAT, TPN, or TF: (list) Referral order placed? Has script been sent? (Yes/no) n/a [facility] (orders) created for the following services: [or waiting for ____ (i.e wound care)] SN,PT,OT Verify demographics (residential address) [address] [place] [id number] What is the primary number to reach you? Who is your family physician/primary care physician? Ani Worley, PACKAGE LINE RELIEF OPERATOR Estimated Discharge Date (NATI): 05/16 If discharge needs change, please reach out to liaison assigned on treatment team as hub is not notified of new consults once team is following. Thank you. [facility] 05-15-2025 Consult note Associated Order (s): IP [facility] Date: 05/15/2025 Time: 3:58 PM Patient Name: Carmen Gilman Date of : 1965 Liaison received a [facility] consult for SN,PT,OT. Patient's agency choice is [facility] Name of HHC agency: Pending / Accepted (if [facility], include region) [facility] accepted Referrals sent to: (names of agencies) [facility] (name) Referral pending or accepted? For OPAT, TPN, or TF: (list) Referral order placed? Has script been sent? (Yes/no) n/a [facility] (orders) created for the following services: [or waiting for ____ (i.e wound care)] SN,PT,OT Verify demographics (residential address) [address] [address] What is the primary number to reach you? Who is your family physician/primary care physician? Ani Worley, PACKAGE LINE RELIEF OPERATOR Estimated Discharge Date (NATI): 05/16 If [...] Assessment Limitations Including: Pain, Mechanical Barriers Are property management supervisor Therapy Services Needed After Discharge: Yes Intensity of property management supervisor Therapy: 5 to 7 days per week (Discussed PT concerns with returning home alone/ home safety/fall prevention. Pt is refusing any short term inpt rehabilitation and states he will only be agreeable to home health PT services. Pt report ESTEBAN will help him as needed) Anticipated Duration of property management supervisor Therapy: Duration 7 - 10 days PT [...] assist, with bilateral UE support, with device Quality Controller - Standing Static: BUE, wheeled walker Standing Balance - Dynamic: Stand by assist, with bilateral UE support, with device Quality Controller - Standing Dynamic: BUE, wheeled walker Loss [...] assist Stand Pivot Transfers: Stand by assist Quality Controller: BUE, wheeled walker Gait/Locomotion Gait Assistance: Stand [...] PRN) Prior Level of Function Level of [place] - Transfers/Ambulation/Mobility: Independent with functional transfers, Independent with household ambulation (ambulates in home and in community with cane;) Level of [place] - ADLs: (ESTEBAN washes pt hair, legs and feet) Level of [place] - Homemaking: (ESTEBAN performs tasks) Driving: Patient [...] would raise voice at therapist and say don't touch the belt!. PT educated pt on purpose of gait [...] home safety and fall prevention. Pt reports I'm going home! Pt reports that ESTEBAN can assist him with needs at home. Pt is refusing any short term inpt rehabilitation and states he will only be agreeable to home health PT services. Pt also states he wants aide services as well. Pt up in chair post PT session with alarm place, but then pt raised voice again at PT and stated get that off of me!. PT educated pt on fall prevention and [...] role. Patient was just recently discharged from [facility] on 04/05/25 to [facility]. Patient signed himself out AMA on [...] A : Post Acute Patient Choice 1: [facility] Plan B: Prison Facility Transportation Assessment and Background Information: Family [...] Caregiver Assessment: SDOH: ATTENDING PHYSICIAN TATA CHANDRA [facility] PRIMARY CARE PHYSICIAN ANI WORLEY CNP [...] room debridement on 05/13/2025. D 05/12/2025 09:47 [id number] 05/12/2025 10:17 MCB/MODL documented in this encounter [facility] 05-15-2025 Consult note Formatting of th [...] Assessment Limitations Including: Pain, Mechanical Barriers Are property management supervisor Therapy Services Needed After Discharge: Yes Intensity of property management supervisor Therapy: 5 to 7 days per week (Discussed PT concerns with returning home alone/ home safety/fall prevention. Pt is refusing any short term inpt rehabilitation and states he will only be agreeable to home health PT services. Pt report ESTEBAN will help him as needed) Anticipated Duration of property management supervisor Therapy: Duration 7 - 10 days PT [...] assist, with bilateral UE support, with device Quality Controller - Standing Static: BUE, wheeled walker Standing Balance - Dynamic: Stand by assist, with bilateral UE support, with device Quality Controller - Standing Dynamic: BUE, wheeled walker Loss [...] assist Stand Pivot Transfers: Stand by assist Quality Controller: BUE, wheeled walker Gait/Locomotion Gait Assistance: Stand [...] PRN) Prior Level of Function Level of [place] - Transfers/Ambulation/Mobility: Independent with functional transfers, Independent with household ambulation (ambulates in home and in community with cane;) Level of [place] - ADLs: (ESTEBAN washes pt hair, legs and feet) Level of [place] - Homemaking: (ESTEBAN performs tasks) Driving: Patient [...] would raise voice at therapist and say don't touch the belt!. PT educated pt on purpose of gait [...] home safety and fall prevention. Pt reports I'm going home! Pt reports that ESTEBAN can assist him with needs at home. Pt is refusing any short term inpt rehabilitation and states he will only be agreeable to home health PT services. Pt also states he wants aide services as well. Pt up in chair post PT session with alarm place, but then pt raised voice again at PT and stated get that off of me!. PT educated pt on fall prevention and [...] LEG Debridement with VERSAJET; Surgeon: ALEXEY Radford, DPM; Location: Main OR; Service: Podiatry FOOT [...] hospital or completion of Physical Therapy Plan. [facility] Plan of care note [...] Absence of pressure injury Outcome: Partially Met [facility] 05-15-2025 Plan of care note Problem: Actual or potential alteration in health Goal: Absence of healthcare acquired conditions Outcome: Partially Met Goal: Knowledge of Interdisciplinary Plan of Care Outcome: Partially Met Goal: Knowledge of Enviroment Outcome: Partially Met [facility] 05-14-[address] [facility] 05-14-2025 Progress note Formatting of t his note might be different from the original. Pt refused insulin and cardiac/spo2 monitoring at this time. Pt educated about risks and states he will stop having as much sugar with meals. [employer]AT [employer] notified. [facility] 05-14-2025 Note [facility] 05-14-2025 Note Formatting of this n ote might be different from the original. PHYSICAL THERAPY VISIT VARIANCE NOTE Attempted to see patient at this time, but unable secondary to: pt refused despite encouragement and education . Will follow up as appropriate. T [facility] 05-14-2025 Note Formatting of this n ote might be different from the original. OCCUPATIONAL THERAPY VISIT VARIANCE NOTE Attempted to see patient at this time, but unable secondary to: Refused, reporting he wants to rest and try to get up later. Will follow up as appropriate. T [facility] 05-14-2025 Plan of care note Problem: [...] Absence of pressure injury Outcome: Partially Met [facility] 05-13-2025 Procedure note Brief Post Operative Note Patient Name: Carmen Gilman : 1965 (59 y.o.) Date of Service: 05/13/2025 CSN: [id number] Procedure(s): INCISION AND DRAINAGE TOTAL KNEE Pre-Operative Diagnoses: * Right knee skin infection/abscess Post-Operative Diagnoses: * Same as Pre-Op Diagnosis Surgeons and Role: * Sofía Dukes MD - Primary Anesthesiologist: Bryson Kelley MD Anesthesiologist Manager Testing: Veronica Knapp AA Mountain Bike Guide: Abigail Camejo Scrub Person: Patel Burns ST RNFA: Roseanna Oliveros RN Operative findings: see op [...] Description Hernandez 05/12/252019 Wound Characteristics Edema;Fragile;Moist 05/12/25 143 Primary Dressing Gauze pad 05/12/25 1437 Secondary [...] NO Sofía Dukes MD 05/13/2025 4:57 PM [facility] 05-13-2025 Procedure note ATTENDING PHYSICIAN [facility] PRIMARY CARE PHYSICIAN ANI WORLEY CNP [...] PACU without intraoperative complication. D 05/13/2025 17:01 [id number] 05/13/2025 17:45 MCB/MODL [facility] 05-13-2025 Attending History and physical note INTERVAL HISTORY AND PHYSICAL Patient Name: Carmen Gilman Admit Date: [id number] MR #: [id number] : 1965 The H&P has been reviewed and the patient has been examined. I concur with the findings of the H&P. There are no significant changes. It is appropriate to proceed with the planned procedure. Sedation Plan: Per Anesthesia Provider Sofía Dukes MD 05/13/2025 3:39 PM Source Note - Sofía Dukes MD - 05/12/2025 9:43 AM EDT ATTENDING PHYSICIAN [facility] PRIMARY CARE PHYSICIAN ANI WORLEY CNP [...] room debridement on 05/13/2025. D 05/12/2025 09:47 [id number] 05/12/2025 10:17 MCB/MODL [facility] 05-13-2025 History and physical note INTERVAL HISTORY AND PHYSICAL Patient Name: Carmen Gilman Admit Date: [id number] MR #: [id number] : 1965 The H&P has been reviewed and the patient has been examined. I concur with the findings of the H&P. There are no significant changes. It is appropriate to proceed with the planned procedure. Sedation Plan: Per Anesthesia Provider Sofía Dukes MD 05/13/2025 3:39 PM Source Note - Sofía Dukes MD - 05/12/2025 9:43 AM EDT ATTENDING PHYSICIAN [facility] PRIMARY CARE PHYSICIAN ANI WORLEY CNP [...] room debridement on 05/13/2025. D 05/12/2025 09:47 [id number] 05/12/2025 10:17 KEVYN/AFSHAN [facility] HISTORY [facility] PHYSICAL -- [facility] Patient name: Carmen Gilman Date of : 1965 Admission date: 05/11/2025 Physicians: Ani Worley CNP (Family); No ref. provider found (Referring) Carmen Gilman is a 59 y.o. male patient of Ani Worley CNP with history of Anxiety, Arrhythmia, Arthritis, COPD, DM, HTN, Left Knee Pain, Opioid Dependance, who presented to [facility] on 05/11/2025 with complaints of Rt [...] Charles MD - 05/12/2025 6:58 AM EDT [facility] NOTE ADDENDUM I saw and examined the [...] Pain, Opioid Dependance, who presented to [facility] on 05/11/2025 with complaints of Rt [...] Consult Vascular: P documented in this encounter [facility] 05-13-2025 Consult note Associated Order (s): IP CONSULT TO CARE MANAGEMENT Date: 05/13/2025 Time: 2:44 PM Patient Name: Carmen Gilman Date of : 1965 Reason for Consult: Discharge Plan Discussion: Met with patient at bedside. Introduced role. Patient was just recently discharged from [facility] on 04/05/25 to [facility]. Patient signed himself out AMA on [...] A : Post Acute Patient Choice 1: [facility] at Home/[facility] Plan B: Prison Facility Transportation Assessment and Background Information: Family [...] Current Home Equipment: Cane Caregiver Assessment: SDOH: [facility] 05-13-2025 Progress note Formatting of t his note might be different from the original. Wiliam Quintana Barry may skip 9am dose of vancomycin due to intolerance with potassium. [facility] 05-13-2025 Note [facility] 05-13-2025 Progress note Formatting of t his note might be different from the original. Patient refusing 0600 dose of IV Lasix stating I was up all night pissing and now they want you to give me more? No, I am not taking that right now. Patient voices understanding the purpose of the Lasix when educated. [facility] 05-13-2025 Progress note Formatting of t his note might be different from the original. Patient refusing daily weight at this time. [facility] 05-13-2025 Plan of care note Problem: Actual or potential alteration in health Goal: Absence of healthcare acquired conditions Outcome: Partially Met Goal: Knowledge of Interdisciplinary Plan of Care Outcome: Partially Met Goal: Knowledge of Enviroment Outcome: Partially Met [facility] 05-12-2025 [...] to cope with pain Outcome: Partially Met T [facility] 05-12-2025 Plan of care [...] Absence of physical injury Outcome: Partially Met [facility] 05-12-2025 Consult note Formatting of th is note might be different from the original. ATTENDING PHYSICIAN [facility] PRIMARY CARE PHYSICIAN ANI WORLEY CNP [...] room debridement on 05/13/2025. D 05/12/2025 09:47 [id number] 05/12/2025 10:17 MCB/MODL [facility] 05-12-2025 Emergency department Note Into patient [...] also educated on recent pain medication administration. [facility] 05-12-2025 Emergency department Note Into patient room to speak about double occupancy room upstairs. Pt refusing double occupancy room. Pt became upset with this RN and Rashaad RN bedside. Stating give me the papers, I [...] denies further needs. Call light within reach. [facility] EMERGENCY DEPARTMENT WHIT NOTE: NAME: Carmen Gilman CSN: [id number] 59 y.o. PCP: Ani Worley CNP History: [...] Knee pain, left Leg swelling Opioid dependence ([facility]) Secondary adrenal insufficiency 04/30/2022 left AMA 04/30/22 [...] All other components within normal limits Narrative: [facility] has implemented the eGFR [...] Procedure Abnormality Status --------- ------ CBC Auto Differential[[id number]] Abnormal Final result Manual Differential[[id number]] Abnormal Final result CBC and Diff Morphology[[id number]] Abnormal Final result Please view results for [...] Chronic respiratory failure with hypoxia and hypercapnia ([facility]) 07/08/2020 Uncomplicated opioid dependence ([facility]) 07/08/2020 Atrial fibrillation with rapid ventricular response ([facility]) 07/08/2020 Obesity (BMI 30-39.9) 07/08/2020 Type 2 diabetes mellitus without complication, without long-term current use of insulin ([facility]) 07/08/2020 Mucopurulent chronic bronchitis ([facility]) 12/03/2020 Polysubstance abuse ([facility]) 06/03/2021 Leukocytosis 06/03/2021 Nondependent cocaine abuse ([facility]) 06/03/2021 Hypotension 04/20/2022 Acute pain of left hip 04/24/2022 Pain of left femur 04/24/[address] 04/25/2022 Alcoholic cirrhosis of liver with ascites ([facility]) 04/28/2022 Hematoma 05/17/2023 Thrombocytopenia 05/25/2023 Venous stasis dermatitis of both lower extremities 05/25/2023 Chronic pain 05/25/2023 Plantar ulcer of right foot ([facility]) 05/25/2023 Ulcer of left lower leg ([facility]) 05/25/2023 Infection of prosthetic right knee joint ([facility]) 06/09/2023 Adrenal insufficiency 06/12/2023 Foot infection 07/29/2023 Cellulitis 10/01/2023 Pancytopenia ([facility]) 10/12/2023 Chronic diastolic congestive heart failure ([facility]) 10/12/2023 Acute heart failure with preserved ejection fraction (HFpEF) ([facility]) 07/02/2024 Acute exacerbation of chronic obstructive pulmonary disease (COPD) ([facility]) 10/16/2024 Pulmonary hypertension ([facility]) 01/02/2025 Edema of both lower extremities 01/02/2025 [...] hypoxemic respiratory failure (HCC) 06/03/2021 Respiratory arrest ([facility]) 06/03/2021 Hypertension 06/03/2021 Acute hypercapnic respiratory failure (HCC) 06/03/2021 Respiratory acidosis 06/03/2021 Hyperglycemia 06/03/2021 Marijuana abuse 06/03/2021 Unresponsiveness 09/30/2021 Fall 04/24/2022 Sepsis ([facility]) 04/24/2022 Bradycardia 04/27/2022 Cellulitis 03/24/2023 Traumatic hematoma 05/17/2023 Leg hematoma, right, initial encounter 05/20/2023 Venous ulcer ([facility]) 05/31/2023 Past Medical History: Diagnosis Date Anxiety Arrhythmia Arthritis Asthma COPD (chronic obstructive pulmonary disease) (HCC) Diabetes ([facility]) Knee pain, left Leg swelling Opioid dependence ([facility]) Secondary adrenal insufficiency 04/30/2022 ED MEDICATIONS GIVEN: [...] tingling to the feet. Patient admitted to [facility] admitting physicians for further management . Clinical Impression: 1. Leg pain 2. Open wound of right knee, leg, and ankle, initial encounter 3. Cellulitis, unspecified cellulitis site Disposition: ED Disposition ED Disposition Hospitalize Condition -- Comment Recommended Level of Care: Med Surg Phone call required?: Yes Camron Goyal Jr., PA-C, PA-C ED Advanced Practice Provider [facility] EMERGENCY DEPARTMENT [1] Social History Socioeconomic History [...] with Dr Dukes documented in this encounter [facility] 05-12-2025 Emergency department Note Rounded on [...] urinal and straightened up pt room. [facility] 05-12-2025 Physician Emergency department Note [facility] EMERGENCY DEPARTMENT ATTENDING NOTE: NAME: Carmen Gilman CSN: [id number] 59 y.o. ED Attestation: I have reviewed [...] initial encounter 3. Cellulitis, unspecified cellulitis site T [facility] Work Phone: 05-12-2025 Emergency department Note Snack provided at this time. [facility] 05-12-[address] [facility] 05-12-2025 Emergency department Note Report received from Nathaniel MENDOZA at bedside. Pt requesting a snack at this time. [facility] 05-12-2025 Emergency department Note Hourly rounding assessment completed on the patient. [x] Patient updated on plan of care [x] All comfort needs addressed [x] Patient updated on duration of visit All questions answered, patient denies further needs. Call light within reach. [facility] 05-12-2025 History and physical note [facility] HISTORY AND PHYSICAL -- [facility] Patient name: Carmen Gilman Date of : 1965 Admission date: 05/11/2025 Physicians: Ani Worley CNP (Family); No ref. provider found (Referring) Carmen Gilman is a 59 y.o. male patient of Ani Worley CNP with history of Anxiety, Arrhythmia, Arthritis, COPD, DM, HTN, Left Knee Pain, Opioid Dependance, who presented to [facility] on 05/11/2025 with complaints of Rt [...] Arthritis Asthma COPD (chronic obstructive pulmonary disease) ([facility]) Sometimes uses home O2 Diabetes ([facility]) Hypertension Knee pain, left Leg swelling Opioid dependence ([facility]) Secondary adrenal insufficiency 04/30/2022 left AMA 04/30/22 [...] Pain, Opioid Dependance, who presented to [facility] on 05/11/2025 with complaints of Rt [...] Tentative Plan OR Mon Consult Vascular: P [facility] 05-12-2025 Physician Emergency department Note [facility] EMERGENCY DEPARTMENT WHIT NOTE: NAME: Carmen Gilman CSN: [id number] 59 y.o. PCP: Ani Worley CNP History: [...] All other components within normal limits Narrative: [facility] has implemented the eGFR [...] Procedure Abnormality Status --------- ------ CBC Auto Differential[[id number]] Abnormal Final result Manual Differential[[id number]] Abnormal Final result CBC and Diff Morphology[[id number]] Abnormal Final result Please view results for [...] Chronic respiratory failure with hypoxia and hypercapnia ([facility]) 07/08/2020 Uncomplicated opioid dependence ([facility]) 07/08/2020 Atrial fibrillation with rapid ventricular response ([facility]) 07/08/2020 Obesity (BMI 30-39.9) 07/08/2020 Type 2 diabetes mellitus without complication, without long-term current use of insulin ([facility]) 07/08/2020 Mucopurulent chronic bronchitis ([facility]) 12/03/2020 Polysubstance abuse ([facility]) 06/03/2021 Leukocytosis 06/03/2021 Nondependent cocaine abuse ([facility]) 06/03/2021 Hypotension 04/20/2022 Acute pain of left hip 04/24/2022 Pain of left femur 04/24/[address] 04/25/2022 Alcoholic cirrhosis of liver with ascites ([facility]) 04/28/2022 Hematoma 05/17/2023 Thrombocytopenia 05/25/2023 Venous stasis dermatitis of both lower extremities 05/25/2023 Chronic pain 05/25/2023 Plantar ulcer of right foot ([facility]) 05/25/2023 Ulcer of left lower leg ([facility]) 05/25/2023 Infection of prosthetic right knee joint ([facility]) 06/09/2023 Adrenal insufficiency 06/12/2023 Foot infection 07/29/2023 Cellulitis 10/01/2023 Pancytopenia ([facility]) 10/12/2023 Chronic diastolic congestive heart failure ([facility]) 10/12/2023 Acute heart failure with preserved ejection fraction (HFpEF) ([facility]) 07/02/2024 Acute exacerbation of chronic obstructive pulmonary disease (COPD) ([facility]) 10/16/2024 Pulmonary hypertension (HCC) 01/02/2025 Edema of both lower extremities 01/02/2025 Venous congestion 01/02/2025 MARLENE (acute kidney injury) 02/11/2025 Generalized weakness 04/02/2025 Resolved Ambulatory Problems Diagnosis Date Noted Open neck wound 01/26/2017 Toe dislocation, left, subsequent encounter 07/31/2018 Acute exacerbation of chronic obstructive pulmonary disease (COPD) ([facility]) 07/08/2020 Essential hypertension 07/08/2020 (HFpEF) heart failure with preserved ejection fraction ([facility]) 07/08/2020 COPD with acute exacerbation 06/03/2021 Acute hypoxemic respiratory failure ([facility]) 06/03/2021 Respiratory arrest ([facility]) 06/03/2021 Hypertension 06/03/2021 Acute hypercapnic respiratory failure ([facility]) 06/03/2021 Respiratory acidosis 06/03/2021 Hyperglycemia 06/03/2021 Marijuana abuse 06/03/2021 Unresponsiveness 09/30/2021 Fall 04/24/2022 Sepsis ([facility]) 04/24/2022 Bradycardia 04/27/2022 Cellulitis 03/24/2023 Traumatic hematoma 05/17/2023 Leg hematoma, right, initial encounter 05/20/2023 Venous ulcer ([facility]) 05/31/2023 Past Medical History: Diagnosis Date Anxiety Arrhythmia Arthritis Asthma COPD (chronic obstructive pulmonary disease) ([facility]) Diabetes ([facility]) Knee pain, left Leg swelling Opioid dependence ([facility]) Secondary adrenal insufficiency 04/30/2022 ED MEDICATIONS GIVEN: [...] tingling to the feet. Patient admitted to [facility] admitting physicians for further management . Clinical Impression: 1. Leg pain 2. Open wound of right knee, leg, and ankle, initial encounter 3. Cellulitis, unspecified cellulitis site Disposition: ED Disposition ED Disposition Hospitalize Condition -- Comment Recommended Level of Care: Med Surg Phone call required?: Yes Camron Goyal Jr., PA-C, PAShanteC ED Advanced Practice Provider [facility] EMERGENCY DEPARTMENT [1] Social History Socioeconomic History [...] Unknown Camron Goyal Jr., PA-C 05/12/25 0402 [facility] 05-12-2025 Emergency department Note Hourly rounding assessment completed on the patient. [x] Patient updated on plan of care [x] All comfort needs addressed [x] Patient updated on duration of visit All questions answered, patient denies further needs. Call light within reach. [facility] 05-12-2025 Emergency department Note Pt is requesting pain meds [facility] 05-11-2025 Emergency department Note Bed: 19 Expected date: Expected time: Means of arrival: Comments: TR4 [facility] 05-11-2025 Emergency department Triage note Patient arrives via private car. Patient states he saw Dr Dukes on for right knee pain and that told him to come to ED on Tuesday to be admitted for a procedure with Dr Dukes [facility] 05-09-2025 Note Addended by: RACHELLE PAIZ on: 05/09/2025 09:51 PM Modules accepted: Orders [facility] 05-09-2025 Miscellaneous Notes Addended by: RACHELLE COLLINS on: 05/09/2025 09:51 PM Modules accepted: Orders Addended by: RACHELLE COLLINS on: 05/09/2025 09:47 PM Modules accepted: Orders documented in this encounter [facility] 05-09-2025 Note Addended by: RACHELLE PAIZ on: 05/09/2025 09:47 PM Modules accepted: Orders [facility] 05-09-2025 Note Addended by: RACHELLE PAIZ on: 05/09/2025 09:47 PM Modules accepted: Orders [facility] 05-09-2025 Miscellaneous Notes Addended by: RACHELLE COLLINS on: 05/09/2025 09:47 PM Modules accepted: Orders documented in this encounter [facility] 05-09-2025 Note Carmen Gilman presents t [...] AUTHENTICATED BY DANIEL HAMMER, ON 05/09/2025 21:46:51 [facility] 05-09-2025 History of Present illness Narrative [...] at the hospital. documented in this encounter [facility] 05-09-2025 History of Present illness Narrative [...] at the hospital. documented in this encounter [facility] 04-05-2025 Plan of care note Problem: [...] Goal: Absence of pressure injury Outcome: Met [facility] 04-05-2025 Miscellaneous Notes Problem: Actual or [...] Met HMS Rapid Response Note Reason for INTEGRATED LOGIST[employer] PROGRAMS DIRECTOR Call: Unresponsiveness Objective BP (!) 181/75 Pulse [...] or movement disorder noted Providers present: Rachelle Bernal, Kj Cox, Carmen Charles Assessment: Per bedside nurse patient [...] patient into bed, see flowsheet for vitals. INTE[employer] LOGIST[employer] PROGRAMS DIRECTOR arrived Labs ordered. Awaiting for results. Patient [...] 4.1 oz) 09/19/23 117.9 kg (260 lb) 01/28/24 123 kg (271 lb 1.6 oz) 07/29/23 [...] will be completed by 04/09. Dietitian's Office [phone] Patient refusing urine drug screen. Informs nurse he does not want anything standing in his way of being admitted to the senior living. States he is being discharged to facility tomorrow and that is the only reason he is here documented in this encounter [facility] 04-05-2025 History of Present illness Narrative Medical Transportation set up by [facility] per hospital request: Date: 04-05-25 Time: 3:00 pm Destination:[place] [address] Company: [employer] ([phone]) Special needs/equipment:Oxygen Truck Type: Ambulance Companies called:Roundtrip Transport request received and is being scheduled, trip information will follow as soon as the time is secured. [facility] PROGRESS NOTE Patient Name: Carmen Gilman : 1965 Assessment and Plan Carmen Gilman is a 59 y.o. male patient of Ani Worley CNP with history of COPD, diabetes, hypertension, dyslipidemia, generalized anxiety disorder and opioid dependence presented to [facility] on 04/02/2025 with generalized weakness and [...] of Discharge: 04/05/2025 Expected Discharge Location: [facility] Quality Measures DVT Prophylaxis: lovenox [...] Per Dr. Jacobs, pt can discharge to [facility] today. Ambulance transport requested. CM to follow. Addendum 1355 Transport is set up for 1500 and form to floor. Treatment team updated. Ravinder, [place], to update SNF. Pt voices no further questions/concerns/needs. D/C Disposition: Prison Facility Final D/C Agency/Destination: [facility] Plan A: Prison Facility Plan A : Post Acute Patient Choice 1: [facility] Plan A : Post Acute Patient Choice 2: [facility] Plan A : Post Acute Patient Choice 3: [facility] Plan A : Post Acute Patient Choice 4: [facility] Transportation: Transportation Type: Ambulance Discharge Disposition: ELOS Discussed with Patient / Family?: Yes Estimated Length of Stay (ELOS): 15 Precert Authorization Status: Pending HENS/PAS: PAS (DOCUMENT ID: [id number]) Reason for Choice: Patient/Family preference Regulatory Documentation: Spiritual Care Progress Note Completed by: Vinita Mitchell Person(s) Present During this Visit: Healthcare Provider Time Spent in Direct Patient Care: 5 Narrative: Attended daily medical rounds. Received updates from medical staff. Pastoral Care team will remain available to support patient and family PRN. 04/04/25 1128 Visit Background Visit With Healthcare Provider Visit By Staff [employer]razzo Tile Setter Visit Progression Other (Please Specify) (Did not participate; clinical rounds) Visit Requested By Terrazzo Tile Setter Initiated Visit Source [employer]ra[employer] Tile Setter Initiated Visit Type IDT Rounds Visit Circumstances and Events Routine Visit Visit Length (minutes) 5 Patient's Response to Pastoral Care Other (see comment) (Did not participate; clinical rounds) Visit Planning PRN Spiritual Assessment Not assessed during visit Confucianism Assessment Not assessed during this visit Family assessment provided? Not assessed during this visit Signature: Vinita Mitchell MDiv Staff [employer]razzo Tile Setter [facility] On-Call Terrazzo Tile Setter /[place] On-Call Terrazzo Tile Setter She/Her/Hers Date: 04/04/2025 Time: 10:53 AM Patient Name: Carmen Gilman Date of : 1965 Discharge Disposition Update: [facility] [place] declined pt. Referral to [facility] per pt and [facility] accepted. Precert started. CM to follow. Addendum 1315 PAS completed and precert still pending. CM to follow. D/C Disposition: Prison Facility Final D/C Agency/Destination: [facility] Plan A: Prison Facility Plan A : Post Acute Patient Choice 1: [facility] Plan A : Post Acute Patient Choice 2: [facility] Plan A : Post Acute Patient Choice 3: [facility] Plan A : Post Acute Patient Choice 4: [facility] Transportation: Discharge Disposition: Regulatory Documentation: [...] With Patient Not Available Visit By Staff Terrazzo Tile Setter Visit Progression Attempt Visit Requested By Terrazzo Tile Setter Initiated Visit Source Terrazzo Tile Setter Initiated Visit Type Inpatient;Rounding Visit Circumstances and Events Routine Visit Visit Length (minutes) 5 Patient's Response to Pastoral Care Timing of Visit Not Optimal. Visit Rescheduled Visit Planning PRN Spiritual Assessment Not assessed during visit Confucianism Assessment Not assessed during this visit Family assessment provided? Not assessed during this visit Signature: Vinita Mitchell MDiv Staff Terrazzo Tile Setter [facility] On-Call Terrazzo Tile Setter /Gu[place]o On-Call Terrazzo Tile Setter She/Her/Hers [facility] PROGRESS NOTE Patient Name: Carmen Gilman : 1965 Assessment and Plan Carmen Gilman is a 59 y.o. male patient of Ani Worley CNP with history of COPD, diabetes, hypertension, dyslipidemia, generalized anxiety disorder and opioid dependence presented to [facility] on 04/02/2025 with generalized weakness and [...] of Discharge: 04/05/2025 Expected Discharge Location: [facility] Quality Measures DVT Prophylaxis: lovenox [...] Visit With Healthcare Provider Visit By Staff Terrazzo Tile Setter Visit Progression Other (Please Specify) (Clinical Rounds; did not participate) Visit Requested By Terrazzo Tile Setter Initiated Visit Source Terrazzo Tile Setter Initiated Visit Type IDT Rounds Visit Circumstances and Events Routine Visit Visit Length (minutes) 5 Patient's Response to Pastoral Care Other (see comment) (Clinical Rounds; did not participate) Visit Planning PRN Spiritual Assessment Not assessed during visit Confucianism Assessment Not assessed during this visit Family assessment provided? Not assessed during this visit Signature: Vinita Mitchell MDiv Staff Terrazzo Tile Setter [facility] On-Call Terrazzo Tile Setter /Vocera On-Call Terrazzo Tile Setter She/Her/Hers [facility] PROGRESS NOTE Patient Name: Carmen Gilman : 1965 Assessment and Plan Carmen Gilman is a 59 y.o. male patient of Ani Worley CNP with history of COPD, diabetes, hypertension, dyslipidemia, generalized anxiety disorder and opioid dependence presented to [facility] on 04/02/2025 with generalized weakness and [...] of Discharge: 04/05/2025 Expected Discharge Location: [facility] Quality Measures DVT Prophylaxis: lovenox [...] of : 1965 Discharge Disposition Update: [facility] discussed discharge plan with pt while in the ED and referral to [facility] pending. Pt from [facility] and recently left [facility] to follow. Transportation: ambulance Discharge Disposition: 04/02/25 1600 Patient Information Source of Information Chart Does Patient have a PCP? Yes [facility] New Referral Pt. discharged from 02/21/25 to [facility]. Discharge diagnosis Acute metabolic encephalopathy, Right knee swelling, MARLENE 0 resolved, liver cirrhosis, T7-L 2 compressions fx., undifferentiate shock resolved. 03/19/25 discharge to home with [facility] SN, PT/OT services. During 04/02/25 RN visit pt. request transfer to SNF d/t weakness. Transported by EMS. Relays he needs transition to the senior living for admission to [facility]. 1618 Phoned [facility] LM with admissions. 1637 [facility] phoned s/w Funmi discharged elected to utilize [facility]. Plan to admit. documented in this encounter [facility] 04-05-2025 Hospital course Narrative [facility] DISCHARGE SUMMARY -- [facility] Carmen Gilman : 1965 Admitted: 04/02/2025 [...] disorder and opioid dependence presented to [facility] on 04/02/2025 with generalized weakness and [...] Commonly known as: PROTONIX Physician(s) Follow Up: [facility] Address: [address] [place] [id number] Servicing [facility]: [place] [phone] Condition at Discharge: Stable Disposition: SNF I reviewed discharge recommendations with the patient in person. Patient instructions, including activity, were given to the patient/family at discharge. On day of discharge I saw Carmen Gilman and spent: > 30 minutes on discharge. Completed by: Kanchan Jacobs MD on 04/05/25, 11:48 AM documented in this encounter [facility] 04-05-[address] [facility] 04-05-2025 Hospital Discharge instructions Rachelle Yang RN - 04/05/2025 9:38 AM EDT Your estimated length of stay at [facility] is 15 days. documented in this encounter [facility] 04-05-2025 Progress note Formatting of t his note might be different from the original. [facility] Rapid Response Note Reason for INTEGRATED LOGISTICS PROGRAMS DIRECTOR Call: Unresponsiveness Objective BP (!) 181/75 Pulse [...] therapies to prevent imminent clinical deterioration. T [facility] Work Phone: 04-04-2025 Progress note Formatting [...] patient into bed, see flowsheet for vitals. INTEGRATED LOGISTICS PROGRAMS DIRECTOR arrived Labs ordered. Awaiting for results. Patient transferred to room 2000 for his safety. [facility] 04-04-2025 Note [facility] 04-[facility]25 Consult note Formatting of th is note is different from the original. Physical Therapy PHYSICAL THERAPY EVALUATION and TREATMENT NOTE Dx: generalized weakness, inability to ambulate, COPD, chronic R knee pain, hx of T7-L2 compression fracture PHYSICAL THERAPY EVALUATION Skilled Therapy Needs After Discharge Anticipate Resolution of Current Assessment Limitations Including: Pain, Mechanical Barriers, Social Support Are property management supervisor Therapy Services Needed After Discharge: Yes Intensity of property management supervisor Therapy: Up to 5 days per week Anticipated Duration of property management supervisor Therapy: > 30 days PT DME Recommendation: [...] Standing Balance - Static: Contact guard assist Quality Controller - Standing Static: wheeled walker Standing Balance - Dynamic: Minimal assist Quality Controller - Standing Dynamic: wheeled walker Loss of Balance- Standing Dynamic: intermittent Strength Assessment Strength RLE RLE Overall Strength: 4-/5 Strength LLE LLE Overall Strength: 4-/5 Bed Mobility Supine to Sit: (bed mobility not observed - pt sitting EOB prior to and after session) Transfers Sit to Stand: Minimal assist (from EOB elevated surface height) Stand Pivot Transfers: Minimal assist Quality Controller: wheeled walker Additional Transfer Trial 2: Yes Sit to Stand Trial 2: Moderate assist (from lower height chair) Stand Pivot Transfers Trial 2: Moderate assist Quality Controller Trial 2: wheeled walker Gait/Locomotion Gait Assistance: [...] From: Family (son in law) Level of [place] - Transfers/Ambulation/Mobility: Needs wheelchair mobility assistance (able to push self for short distance but needs assistance for longer distances) Level of [place] - ADLs: Independent Level of [place] - Homemaking: Needs assistance PHYSICAL THERAPY TREATMENT [...] Knee pain, left Leg swelling Opioid dependence ([facility]) Secondary adrenal insufficiency 04/30/2022 left AMA 04/30/22 [...] hospital or completion of Physical Therapy Plan. T [facility] 04-03-2025 Consult note Formatting of th is note is different from the original. Physical Therapy PHYSICAL THERAPY EVALUATION and TREATMENT NOTE Dx: generalized weakness, inability to ambulate, COPD, chronic R knee pain, hx of T7-L2 compression fracture PHYSICAL THERAPY EVALUATION Skilled Therapy Needs After Discharge Anticipate Resolution of Current Assessment Limitations Including: Pain, Mechanical Barriers, Social Support Are property management supervisor Therapy Services Needed After Discharge: Yes Intensity of property management supervisor Therapy: Up to 5 days per week Anticipated Duration of property management supervisor Therapy: > 30 days PT DME Recommendation: [...] Standing Balance - Static: Contact guard assist Quality Controller - Standing Static: wheeled walker Standing Balance - Dynamic: Minimal assist Quality Controller - Standing Dynamic: wheeled walker Loss of Balance- Standing Dynamic: intermittent Strength Assessment Strength RLE RLE Overall Strength: 4-/5 Strength LLE LLE Overall Strength: 4-/5 Bed Mobility Supine to Sit: (bed mobility not observed - pt sitting EOB prior to and after session) Transfers Sit to Stand: Minimal assist (from EOB elevated surface height) Stand Pivot Transfers: Minimal assist Quality Controller: wheeled walker Additional Transfer Trial 2: Yes Sit to Stand Trial 2: Moderate assist (from lower height chair) Stand Pivot Transfers Trial 2: Moderate assist Quality Controller Trial 2: wheeled walker Gait/Locomotion Gait Assistance: Minimal assist (with close chair follow) Assistive Device: wheeled walker Distance: 3 Feet (then another 2ft after ~4min seated rest break) Pattern: step through, R impaired heel strike, L impaired heel strike, R decreased step length, L decreased step length, over reliance on upper extremities, forward flexed, antalgic, decreased evronica (steps per minute) Gait Loss(es) of Balance: [...] From: Family (son in law) Level of [place] - Transfers/Ambulation/Mobility: Needs wheelchair mobility assistance (able to push self for short distance but needs assistance for longer distances) Level of [place] - ADLs: Independent Level of [place] - Homemaking: Needs assistance PHYSICAL THERAPY TREATMENT [...] complete exercises as able - ankle pumps, LABarrington, alo [place]. Completed x5 each bilaterally for form Skilled [...] Arthritis Asthma COPD (chronic obstructive pulmonary disease) ([facility]) Diabetes ([facility]) Hypertension Knee pain, left Leg swelling Opioid dependence ([facility]) Secondary adrenal insufficiency 04/30/2022 left AMA 04/30/22 [...] SKIN GRAFT; Surgeon: Cecilia Gonzales DPM; Location: [facility] OR; Service: Podiatry THORACIC DUCT LIGATION [...] Referral pending to [facility]. Pt from [facility] apartments with [facility] and recently left [facility]. Pt states takes cab or has friends for transportation. Pt was on subutex but does not feel it's working and states just wants some other pain meds. CM to follow. Addendum [phone] [facility] declined and further referrals pending to [facility] and [facility] CM to follow. Discharge Plan: Plan A: [facility] Plan A : Post Acute Patient Choice 1: [facility] Plan A : Post Acute Patient Choice 2: [facility] Plan A : Post Acute Patient Choice 3: [facility] Plan A : Post Acute Patient Choice 4: [facility] Transportation Assessment and Background Information: [...] Caregiver Assessment: SDOH: documented in this encounter [facility] 04-03-2025 Plan of care note Physical [...] 2.) The patient is discharged from the [facility] Cosigned by Shanae Nunez MD at 04/03/2025 9:01 PM EDT [facility] 04-03-2025 Consult note Associated Order (s): IP CONSULT TO CARE MANAGEMENT Date: 04/03/2025 Time: 2:52 PM Patient Name: Carmen Gilman Date of : 1965 Reason for Consult: Discharge Plan Discussion: See VCM note from 04/02/25. Pt states difficulty caring for self at home. Referral pending to [facility]. Pt from [facility] apartments with [facility] and recently left [facility]. Pt states takes cab or has friends for transportation. Pt was on subutex but does not feel it's working and states just wants some other pain meds. CM to follow. Addendum [phone] [facility] declined and further referrals pending to [facility] and [facility]. [facility] also declined. CM to follow. Discharge Plan: Plan A: [facility] Plan A : [facility] Acute [facility] Plan A : Post Acute Patient Choice 2: [facility] Plan A : Post Acute Patient Choice 3: [facility] Plan A : Post Acute Patient Choice 4: [facility] Transportation Assessment and Background Information: [...] staff Assistance Needed: yes Caregiver Assessment: SDOH: [facility] 04-03-2025 Progress note Formatting of t [...] will be completed by 04/09. Dietitian's Office [phone] [facility] 04-03-[address] [facility] 04-02-2025 Progress note Formatting of t his note might be different from the original. Patient refusing urine drug screen. Informs nurse he does not want anything standing in his way of being admitted to the senior living. States he is being discharged to facility tomorrow and that is the only reason he is here [facility] 04-02-2025 History and physical note [facility] HISTORY AND PHYSICAL -- [facility] Patient Name: Carmen Gilman : 1965 MR #: [id number] Admit Date: 04/02/2025 Physicians: Ani Worley CNP (Family); No ref. provider found (Referring) Carmen Gilman is a 59 y.o. male patient of Ani Worley CNP with history of COPD, diabetes, hypertension, dyslipidemia, generalized anxiety disorder and opioid dependence presented to [facility] on 04/02/2025 with generalized weakness and [...] date: 1984 Quit date: 2000 Years since quittin.6 Passive exposure: Current Smokeless Tobacco Current Types: Chew [facility] 04-02-2025 History and physical note [facility] HISTORY AND PHYSICAL -- [facility] Patient Name: Carmen Gilman : 1965 MR #: [id number] Admit Date: 04/02/2025 Physicians: Ani Worley CNP (Family); No ref. provider found (Referring) Carmen Gilman is a 59 y.o. male patient of Ani Worley CNP with history of COPD, diabetes, hypertension, dyslipidemia, generalized anxiety disorder and opioid dependence presented to [facility] on 04/02/2025 with generalized weakness and [...] Arthritis Asthma COPD (chronic obstructive pulmonary disease) ([facility]) Diabetes ([facility]) Hypertension Knee pain, left Leg swelling Opioid dependence ([facility]) Secondary adrenal insufficiency 04/30/2022 left AMA 04/30/22 [...] Current Types: Chew documented in this encounter [facility] 04-02-2025 Emergency department Note Patient given a urinal at this time. [facility] 04-02-2025 Emergency department Note Patient given [...] [facility] lives at home by himself and has not been able to get around the house more than usual the last couple days, PMHx: renal failure, HTN, COPD. Pt presents with chronic b/l knee and back pain, denies fall, reports was unable to get out of chair this morning and needs placement I can't get around at home anymore. Pt A&OX4. Bed: 40 Expected date: Expected time: Means of arrival: Comments: R1 documented in this encounter [facility] 04-02-2025 Emergency department Note Patient given menu at this time [facility] 04-02-2025 Emergency department Note Hourly rounding assessment completed on the patient. [x] Patient updated on plan of care [x] All comfort needs addressed [x] Patient updated on duration of visit All questions answered, patient denies further needs. Call light within reach. [facility] 04-02-2025 Emergency department Note Hourly rounding assessment completed on the patient. [x] Patient updated on plan of care [x] All comfort needs addressed [x] Patient updated on duration of visit All questions answered, patient denies further needs. Call light within reach. [facility] 04-02-2025 Emergency department Triage note Pt came from home, brought by EMS. Pt has been set up to transition to senior living [facility], lives at home by himself and has not been able to get around the house more than usual the last couple days, PMHx: renal failure, HTN, COPD. Pt presents with chronic b/l knee and back pain, denies fall, reports was unable to get out of chair this morning and needs placement I can't get around at home anymore. Pt A&OX4. [facility] 04-02-2025 Emergency department Note Bed: 40 Expected date: Expected time: Means of arrival: Comments: R1 [facility] 02-21-2025 [facility] 02-20-2025 [facility] 02-20-2025 [facility] 02-19-2025 [facility] 02-18-2025 [facility] 02-18-2025 [facility] 02-17-2025 [facility] 02-16-20[facility]-16-[facility] 02-15-2025 [facility] 02-15-20[facility] 02-15-20[facility] 02-14-2025 [facility] 02-14-2025 [facility] 02-13-2025 [facility] 02-13-2025 [facility] 02-12-2025 [facility] 01[facility]04-2025 [facility] 01-04-2025 History of Present illness Narrative Follow up documented in this encounter [facility] 01-04-2025 History of Present illness Narrative [...] that was prescribed to him by his PACKAGE LINE RELIEF OPERATOR due to his right knee swelling. No other pedal complaints at this time. Denies fevers, chills, nausea, vomiting, chest pain, shortness of breath, or any other constitutional symptoms. Past Medical History: Diagnosis Date Anxiety Arrhythmia Arthritis Asthma COPD (chronic obstructive pulmonary disease) ([facility]) Diabetes ([facility]) Hypertension Knee pain, left Leg swelling Opioid dependence ([facility]) Secondary adrenal insufficiency 04/30/2022 left AMA 04/30/22 [...] intact. Protective sensation is diminished using the [place] Jared filament. Dermatologic: See images below Musculoskeletal: [...] to errors including those of syntax and sound-alike substitutions which may escape proofreading. In such [...] Last Year: No documented in this encounter [facility] 01-02-2025 Instructions Traci Sood MA - 01/02/2025 2:07 PM EDT How to contact your Care Team: Providers: DO Jim Boudreaux III, CNP Jill Bender, PA Nurse: Margot Gallegos To reschedule office appointments call Scheduling [phone] In case of an emergency please call 911. When in need of refills please call the phone number listed above. Please include medication name, pharmacy name and specify 30 or 90 day supply Please check with your pharmacy within 24 hours of your request for refill. You must follow up as directed to continue current refills. Thank you! documented in this encounter [facility] 01-02-2025 Note Assessment & Plan: 1. [...] Arthritis Asthma COPD (chronic obstructive pulmonary disease) ([facility]) Diabetes ([facility]) Hypertension Knee pain, left Leg swelling Opioid dependence ([facility]) Secondary adrenal insufficiency 04/30/2022 left AMA 04/30/22 [...] and wheezing. En (more content not included)... [facility] 01-02-2025 History of Present illness Narrative [...] Arthritis Asthma COPD (chronic obstructive pulmonary disease) ([facility]) Diabetes ([facility]) Hypertension Knee pain, left Leg swelling Opioid dependence ([facility]) Secondary adrenal insufficiency 04/30/2022 left AMA 04/30/22 [...] a day . naloxone (NARCAN) 4 mg/actuation Quitman Administer 1 spray into one nostril for [...] No Known Allergies documented in this encounter [facility] 12-24-2024 History of Present illness Narrative Placed call to Ani Worley [facility] office to clarify referral and patient's needs in our practice. Provided fax number to send necessary documentation. documented in this encounter [facility] 12-21-2024 Note [facility] 12-21-2024 History of Present illness Narrative Associated [...] was tolerated well documented in this encounter [facility] 12-21-2024 History of Present illness Narrative [...] intact. Protective sensation is diminished using the [place] Jared filament. Dermatologic: See images below Musculoskeletal: [...] to errors including those of syntax and sound-alike substitutions which may escape proofreading. In such [...] Last Year: No documented in this encounter [facility] 12-21-2024 Instructions Jeri Dillon RN - 12/21/2024 2:13 PM EDT Dakin wet-to-dry to the medial foot wound, 4 x 4, double layer Tubigrip on the right Tubigrip on the left Frequency: Daily Follow up: 1 week(s) documented in this encounter [facility] 11-23-2024 Note Rosa Ferreira R N 11/23/2024 3:19 PM Multi-layer Compression Wrap Procedure Performed for: Bilat legs for edema control Performed by:: Clinician haven Procedural Pain: 0 Bandage Type: Compression Compression Layers: Multi-layer Compression Product Type: Profore Regular Dressing Applied: No Extremity Location: Below Knee [facility] 11-23-2024 History of Present illness Narrative [...] intact. Protective sensation is diminished using the [place] Jared filament. Dermatologic: See images below Musculoskeletal: [...] Depth (cm) 0.1 cm 11/16/24 1358 Wound 11/12/24 Cellulitis Pre-tibial Right (Active) Wound Image 11/23/24 [...] to errors including those of syntax and sound-alike substitutions which may escape proofreading. In such instances, original meaning may be extrapolated by contextual derivation. Cecilia Gonzales, ESTHERM, MS Podiatric Physician & Surgeon [1] Social [...] Last Year: No documented in this encounter [facility] 11-23-2024 Instructions Rosa Ferreira RN - 11/23/2024 2:17 PM EDT Profore bilaterally Frequency: Keep clean and dry Follow up: 1 week(s) documented in this encounter [facility] 11-23-20[facility] History of Present illness Narrative [...] pt to discharge home today w/ [facility]. Pt to also f/u in the wound clinic. Pt voices no further questions/concerns/needs. Received response from [facility] Rog[facility] , jennifer to accept patient due to unable to [...] Vargas, pt now wants to go to [facility] on discharge but per therapy, pt does not have any skilled needs at this time. Pt will need wound care. Referral to [facility]. CM to follow. Addendum 1520 [facility] declined pt. This RN CM spoke with pt about the lack of need for skilled therapy at SNF and pt is agreeable to go home w/ [facility] on discharge. CM to follow. [facility] PROGRESS NOTE Assessment and Plan Carmen Gilman [...] Patient is [facility] to be [facility], altho he reports that he feels [...] skin breakdown Psych: normal mood and affect [facility] PROGRESS NOTE Assessment and Plan Carmen Gilman is a 59 y.o. 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 Received updates from medical staff. Pastoral Care team will remain available to support patient and family PRN. 10/22/24 1130 Visit Background Visit With Healthcare Provider Visit By Staff Terrazzo Tile Setter Visit Progression Other (Please Specify) (Did not participate; clincial rounds) Visit Requested By Terrazzo Tile Setter Initiated Visit Source Terrazzo Tile Setter Initiated Visit Type IDT Rounds Visit Circumstances and Events Routine Visit Visit Length (minutes) 5 Patient's Response to Pastoral Care Other (see comment) (Did not participate; clincial rounds) Visit Planning PRN Spiritual Assessment Not assessed during visit Confucianism Assessment Not assessed during this visit Family assessment provided? Not assessed during this visit Signature: Vinita Mitchell MDiv Staff Terrazzo Tile Setter [facility] On-Call Terrazzo Tile Setter /[place] On-Call Terrazzo Tile Setter She/Her/Hers Care Management Progress Note Date: 10/22/2024 [...] wt gain recently per records. 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 Good intakes and appetite here and SOFTWARE SYSTEMS ARCHITECT. Difficulty Chewing or Swallowing: No Fluid Status [...] Home Medications Reviewed: Yes Nutrient Depleting Medications: SOFTWARE SYSTEMS ARCHITECT: lasix, protonix, prednisone Scheduled Meds: ammonium lactate [...] Progress Note 10/22/2024 ALEXEY Radford DPM [facility] Patient: Carmen Gilman Date of : 1965 (59 y.o.) PCP: Ani Worley, PACKAGE LINE RELIEF OPERATOR ASSESSMENT Bilateral lower extremity venous stasis [...] Gonzales and wound care Discharge instructions from S: Pending SUBJECTIVE: Patient was seen in his [...] care needs per inpatient cm. Name of [facility] agency: Pending / Accepted (if [facility], include region) Accepted- [facility] (orders) created for the following services: [or waiting for ____ (i.e wound care)] Yes- SN,PT,OT,FRUIT CULLER Verify demographics (residential address) [address] [place] [address] What is the primary number to reach you? [phone] Following physician will be: (list first name/last name) Ani Worley CNP Do you have a caregiver and/or teachable caregiver (list relationship, name & phone #)? Lives alone with support from family members Estimated Discharge Date (NATI): 10/19 [facility] PROGRESS NOTE Assessment and Plan Carmen Gilman [...] included. Podiatry Inpatient Progress Note 10/21/2024 ALEXEY Radford, YURIDIA [facility] Patient: Carmen Gilman Date of : 1965 (59 y.o.) PCP: Ani Worley, PACKAGE LINE RELIEF OPERATOR ASSESSMENT Bilateral lower extremity venous stasis [...] 5/5. Right midfoot collapse without rocker-bottom morphology [facility] [place]GRESS [place] Assessment and Plan Carmen Gilman [...] included. Podiatry Inpatient Progress Note 10/20/2024 ALEXEY Radford DPM [facility] Patient: Carmen Gilman Date of : 1965 (59 y.o.) PCP: Ani Worley, PACKAGE LINE RELIEF OPERATOR ASSESSMENT Bilateral lower extremity venous stasis [...] to discharge per podiatry Discharge instructions from S: Pending SUBJECTIVE: Patient was seen in his [...] 5/5. Right midfoot collapse without rocker-bottom morphology [facility] PROGRESS NOTE Assessment and Plan Carmen Gilman [...] pt likely ready for dc on Tuesday. [place] has been set up. LAWRENCE Douglas, aware to send waiver referral. CM to follow. Spiritual Care Progress Note Completed by: Vinita Mitchell Person(s) Present During this Visit: Patient Time Spent in Direct Patient Care: 15 Narrative: Follow-up visit per pt request. Carmen shared a little more about his health and requested a prayer for healing. He cites a strong Episcopal gerri and prefers to pray in Willis' name. This production leader provided emotional support and prayer as requested. Visit was brief as Carmen was expecting visitors. This production leader provided information about Pastoral Care services and how to contact a production leader. Pastoral Care team will remain available to support patient and family PRN. 10/19/24 0846 Visit Background Visit With Patient Visit By Staff Terrazzo Tile Setter Visit Progression Follow-Up Visit Requested By Terrazzo Tile Setter Initiated Visit Source Terrazzo Tile Setter Initiated Visit Type Inpatient;Patient Request Visit Circumstances and Events Routine Visit Visit Length (minutes) 15 Patient's Response to Pastoral Care Appeared to be well-engaged;Expressed Gratitude for Visit Visit Planning PRN;Pt aware to contact Terrazzo Tile Setter as needed Spiritual Assessment Assessed during this visit Confucianism Assessment Assessed during this visit Family assessment provided? Not assessed during this visit Patient Spiritual Needs Assessment Sources of Connection Other (see comment) (Family) Belief Practices Prayer;Experience of Amna/Divine Favor Image of the Divine Personal / Present;Guide Role of the Divine in Pt's Illness Divine is Source of Support Spiritual Wellness Activies and Resources Prayer;Confucianism/Philosophic Meaning-Making Spiritual Issues / Opportunities Seek Healing/Wholeness Expressed / Stated Feelings Hopeful Attitude Toward Illness Fighting Spirit Coping Mechanisms Family Support;Trust in God/Higher Power;Prayer/Spiritual Practices Spiritual Diagnosis Spiritual Support and Connection Facilitated Interventions Active Listening;Explored thoughts/feelings associated with current hospitalization;Prayer;Patient's Experience Spiritual/Emotional Outcomes Appreciative;Gratitude Spiritual Plan of Care Continue Healing Process;Receive Spiritual Support;Receive Prayer Patient Confucianism Needs Assessment Confucianism Connection Not Discussed Confucianism Home Episcopal Confucianism Resources Prayer;Hope/Trust in God;Confucianism Gerri Confucianism Rituals Prayer Expressed Outcome Expressed Gratitude Signature: Vinita Mitchell MDiv Staff Terrazzo Tile Setter [facility] On-Call Terrazzo Tile Setter /[place] On-Call Terrazzo Tile Setter She/Her/Hers 10/19/2024 7:26 am- This RN will continue to follow for discharge planning. Name of [facility] agency: Pending / Accepted (if [facility], include region) Accepted- [place] (orders) created for the following services: [or waiting for ____ (i.e wound care)] Yes- SN,PT,OT,FRUIT CULLER Verify demographics (residential address) [address] [place], [place] [id number] What is the primary number to reach you? [phone] Following physician will be: (list first name/last name) Ani Worley CNP Do you have a caregiver and/or teachable caregiver (list relationship, name & phone #)? Lives alone with support from family members Estimated Discharge Date (NATI): 10/19 Images from the original note were not included. Podiatry Inpatient Progress Note 10/18/2024 Quyen Franco CNP [facility] Patient: Carmen Gilman Date of : [...] to get some rest and asked this production leader to try again tomorrow. Visit rescheduled for patient and/or family convenience and pastoral care availability.Pastoral Care team will remain available to support patient and family PRN. 10/18/24 1346 Visit Background Visit With Patient Not Available Visit By Staff Terrazzo Tile Setter Visit Progression Attempt Visit Requested By Terrazzo Tile Setter Initiated Visit Source Terrazzo Tile Setter Initiated Visit Type Inpatient;Rounding Visit Circumstances and Events Routine Visit Visit Length (minutes) 5 Patient's Response to Pastoral Care Timing of Visit Not Optimal. Visit Rescheduled Visit Planning PRN Spiritual Assessment Not assessed during visit Confucianism Assessment Not assessed during this visit Family assessment provided? Not assessed during this visit Signature: Viinta Mitchell MDiv Staff Terrazzo Tile Setter [facility] On-Call Terrazzo Tile Setter /[place] On-Call Terrazzo Tile Setter She/Her/Hers [facility] PROGRESS NOTE Assessment and Plan Carmen Gilman [...] in Direct Patient Care: 5 Narrative: This production leader attended daily medical rounds. Received updates from medical staff. Pastoral Care team will remain available to support patient and family PRN. 10/18/24 1140 Visit Background Visit With Healthcare Provider Visit By Staff Terrazzo Tile Setter Visit Progression Other (Please Specify) (Did not participate; clinical rounds) Visit Requested By Terrazzo Tile Setter Initiated Visit Source Terrazzo Tile Setter Initiated Visit Type IDT Rounds Visit Circumstances and Events Routine Visit Visit Length (minutes) 5 Patient's Response to Pastoral Care Other (see comment) (Did not participate; clinical rounds) Visit Planning PRN Spiritual Assessment Not assessed during visit Confucianism Assessment Not assessed during this visit Family assessment provided? Not assessed during this visit Signature: Vinita Mitchell MDiv Staff Terrazzo Tile Setter [facility] On-Call Terrazzo Tile Setter /Vocnmm On-Call Terrazzo Tile Setter She/Her/Hers Spiritual Care Progress Note Completed by: Vinita Mitchell Person(s) Present During this Visit: Patient Time Spent in Direct Patient Care: 15 Narrative: This production leader visited the pt., Carmen, while rounding. He is known to this production leader from previous hospitalizations. Reintroduced self and role. Carmen shared that he is trying to improve his health for his family. He is thankful to God for the improvements he has made in his health. He asked this production leader to visit this afternoon if possible. This production leader provided empathetic listening. Pastoral Care to follow up. This production leader provided information about Pastoral Care services and how to contact a production leader. 10/18/24 1028 Visit Background Visit With Patient Visit By Staff Terrazzo Tile Setter Visit Progression Introduction Visit Requested By Terrazzo Tile Setter Initiated Visit Source Terrazzo Tile Setter Initiated Visit Type Inpatient;Rounding Visit Circumstances and Events Routine Visit Visit Length (minutes) 15 Patient's Response to Pastoral Care Appeared to be well-engaged;Expressed Gratitude for Visit;Requested Follow-up Visit Visit Planning PRN;Pt aware to contact Terrazzo Tile Setter as needed Spiritual Assessment Not assessed during visit Confucianism Assessment Not assessed during this visit Family assessment provided? Not assessed during this visit Signature: Vinita Mitchell MDiv Staff Terrazzo Tile Setter [facility] On-Call Terrazzo Tile Setter /Voceno On-Call Terrazzo Tile Setter She/Her/Hers [facility] PROGRESS NOTE Assessment and Plan Carmen Gilman [...] affect NEUROSURGERY PROGRESS NOTE: Carmen Gilman 1965 [id number] Assessment/Plan: 59y male with multiple underlying medical [...] in Direct Patient Care: 5 Narrative: This production leader attended daily medical rounds. Received updates from medical staff. Pastoral Care team will remain available to support patient and family PRN. 10/17/24 1137 Visit Background Visit With Healthcare Provider Visit By Staff Terrazzo Tile Setter Visit Progression Other (Please Specify) (Did not participate; clinical rounds) Visit Requested By Terrazzo Tile Setter Initiated Visit Source Terrazzo Tile Setter Initiated Visit Type IDT Rounds Visit Circumstances and Events Routine Visit Visit Length (minutes) 5 Patient's Response to Pastoral Care Other (see comment) (Did not participate; clinical rounds) Visit Planning PRN Spiritual Assessment Not assessed during visit Confucianism Assessment Not assessed during this visit Family assessment provided? Not assessed during this visit Signature: Vinita Mitchell MDiv Staff Terrazzo Tile Setter [facility] On-Call Terrazzo Tile Setter /[place] On-Call Terrazzo Tile Setter She/Her/Hers Trauma will sign off at this time. [facility] DAILY PROGRESS NOTE MECHANISM: [...] at 10/17/2024 1122 Last data filed at 10/16/2024 2000 Gross per 24 hour Intake 800 ml [...] 10/15/2024 ALKPHOS 89 10/15/2024 BILITOT 0.7 10/15/2024 [facility] DAILY PROGRESS NOTE MECHANISM: [...] reviewed the WHIT note, labs, studies, and sap basis consultant notes. Furthermore even though we both were involved with evaluating this patient today, my participation and time spent has exceeded 51% of the total time spent. I have reviewed and agree with the documented history, exam, and plan of care, with the following additions and corrections: Today: Carmen Gilman is a 59 y.o. adult with morbid obesity presenting with T7 fx following [facility] fall. Pt is being admitted with [...] have pt follow up with PCP for fci management of osteopenia. Vit D 11, will start supp. CBC chem 7 today personally reviewed with chronic anemia, chronic thrombocytopenia, and development today of pancytopenia. PT has been admitted to [facility]. Will f/u nsg recs, MRI pending. Therapies pending results. Cont care per primary team, thank you for this consult. A comprehensive review of systems was performed with the pt and all systems reviewed were negative except those listed in the HPI. Hardy Luna MD, FACS, DABS, DABA Trauma, Acute Care Surgery, Surgical Critical Care, and Neurocritical Care documented in this encounter [facility] 03-05-2025 Hospital course Narrative Images from the original note were not included. [facility] DISCHARGE SUMMARY -- [facility] Carmen Gilman Admitted: 10/15/2024 Discharge Date: [...] by mouth daily . naloxone 4 mg/actuation Quitman Commonly known as: NARCAN Administer 1 spray [...] - NOT IN LIST Sammy Esteves MD [address] [facility] [address] [place] [phone] Follow up Call to schedule a 4 week follow up visit with repeat XRAY [facility] Address: [place] Counties: [facility], [facility] [phone] Condition at Discharge: Stable Disposition: Home I reviewed discharge recommendations with the patient in person. Patient instructions, including activity, were given to the patient/family at discharge. On day of discharge I saw Carmen Gilman and spent: > 30 minutes on discharge. Completed by: Cameron Vargas MD on 10/24/24, 1:07 PM documented in this encounter [facility] 10-24-2024 Plan of care note Problem: [...] Absence of physical injury Outcome: Partially Met [facility] 10-24-2024 Miscellaneous Notes Problem: Actual or [...] on importance of this medication. Patient states maybe with my other morning medications. Urinal emptied at this time. Patient denies other needs. 2134: At this time attempted to give patient scheduled medications. He states I've been waiting on my subutex. Explained to patient medication due times. Patient at this time refusing lasix, inhaler, lovenox, melatonin, and trazodone stating I just want my subutex and other meds. Ill do the rest later. 3: Patient at this time called requesting lasix and inhaler. Continues to refuse melatonin, trazodone, and lovenox. Patient without oxygen on, states he is short of breath. Oxygen placed back on patient. Patient denies other needs at this time. 2329: Patient at this time called stating I need my sleep aids. I shouldn't have to call for you to do your job. Explained to patient that medications were offered [...] floor. Patient stated that he removed them because I was too hot. Patient refused TEDDY wraps to be put [...] or call our 14/03 on-call number at [phone] with any questions, concerns or clinical updates. [...] time, asking RN to contact doctor about injectable Lasix. Marcelina OLVERA notified at this time. 2100 Patient agreeable to pulse ox and compression stockings. Declines continuous cardiac monitoring. 0100 Patient requests left teddy wrap to be removed, states it is uncomfortable. Patient educated on order and advised to elevate legs. 0600 Patient continuous to decline cardiac monitoring, states my heart is fine. Problem: Actual or potential alteration in health [...] explained the 4 eyes assessment, patient replied I only have my legs that are open, you can look at those. Both Rosaline MENDOZA and Monica RN checked B/L legs, and arms. documented in this encounter [facility] 10-23-2024 Progress note Formatting of t his note might be different from the original. Patient left the unit with a family member in a wheelchair. Patient was advised not to leave the unit and that he needed to wear his oxygen. Patient stated he didn't care and left. [facility] 10-23-2024 Progress note Formatting of t [...] to have dressing change at this time. [facility]23-2024 [facility] Progress note Formatting of t his [...] on importance of this medication. Patient states maybe with my other morning medications. Urinal emptied at this time. Patient denies other needs. [facility] 10-22-2024 Progress note Formatting of t his note might be different from the original. 2134: At this time attempted to give patient scheduled medications. He states I've been waiting on my subutex. Explained to patient medication due times. Patient at this time refusing lasix, inhaler, lovenox, melatonin, and trazodone stating I just want my subutex and other meds. Ill do the rest later. 2213: Patient at this time called requesting lasix and inhaler. Continues to refuse melatonin, trazodone, and lovenox. Patient without oxygen on, states he is short of breath. Oxygen placed back on patient. Patient denies other needs at this time. 2329: Patient at this time called stating I need my sleep aids. I shouldn't have to call for you to do your job. Explained to patient that medications were offered several times and that he continued to deny wanting them as offered. At this time melatonin and trazodone administered per patient request. Urinal emptied. Patient sitting on edge of bed appearing short of breath, oxygen off. Patient denies wanting to wear oxygen at this time. Patient denies other needs at this time. [facility] 10-22-[address] [facility] 10-22-[address] [facility] 10-22-2024 Consult note Formatting of th [...] stated he feels comfortable with donning/doffing TLSO. [facility] 10-22-2024 Consult note Formatting of [...] this time, order discontinued at this time. [facility] 10-22-2024 Consult note Formatting of [...] TO HOME HEALTH HUB 10/17/2024 3:41 pm- [facility] consult received to set up home health care services. Name of [facility] agency: Pending / Accepted (if [facility], include region) Accepted- [place] (orders) created for the following services: [or waiting for ____ (i.e wound care)] Yes- SN,PT,OT,FRUIT CULLER Verify demographics (residential address) [address] [place] [address] What is the primary number to reach you? [phone] Following physician will be: (list first name/last name) Ani Worley, RODRIGUE Do you have a caregiver and/or teachable [...] Final Result by Fransisco Camilo MD (10/15/2024 8832) 1. Suboptimal pulmonary artery opacification, but no [...] Admitting Dx: COPD, resp failure PCP: Meir CAR SEAT MAKER Specialists: none Preferred Pharmacy: [email or web address] Prescription Benefit: yes, pt states no concerns obtaining/affording meds but states is not compliant with meds at home. Pt states 'I don't what I should be taking, I need a nurse to come in and help me with that.' LW/HPOA: does not have LNOK: Calin Gilman, brother Living Arrangements: Pt lives alone in [facility] independent living apartments with no steps and states needs assistance with all ADL's. Transportation: Pt drives self and states no concerns with transportation. DME/HHC/SNF: Pt states no need for further DME. Pt states has had HHC in the past and would like referral for discharge. Pt states no preference on HHC agency and declines list at this time. Order to [facility] hub for SN/PT/OT/aide. Pt has been to [facility] and [place] in the past and adamantly insists several times that he will not go back to a SNF. Pt states is in contact with a CM but unsure of their name/program. Pt is too young for [facility] so call to [place] waiver program, [employer], and they state pt was denied for [place] [facility] care waiver program in September. Pt is on disability. Pt [...] IP CONSULT TO NEUROSURGERY Neurosurgery Inpatient Consult [facility] 10/16/2024 Radames Hendrickson PA-C [facility] Patient: Carmen Gilman Date of : 1965 (59 y.o.) Referring Provider: Refer to consult order in electronic medical record PCP: Ani Worley PACKAGE LINE RELIEF OPERATOR ASSESSMENT/PLAN: MRI T spine reviewed, other [...] Jamar Escobedo MD naloxone (NARCAN) 4 mg/actuation Quitman Administer 1 spray into one nostril for [...] 5 5 Elbow Extension (Triceps) 5 5 Copy Holder (Flexor Digitorum) 5 5 Finger Abduction (Interossei) [...] Results Component Value Date NA 137 10/16/2024 OLB5GRF 56.4 (H) 04/25/2022 INR 1.1 09/19/2023 HGB [...] abnormal signal in the thoracic spinal cord. DM/alt Workstation ID: [id number] CT Thoracic And Lumbar [...] the remaining thoracic and lumbar spine. [facility] Workstation ID: [id number] CTA Pulm Art [...] repeat radiographs are recommended in 7-10 days. [facility] Workstation ID: [id number] XR Tibia Fibula Right 2 Views Final Result 1. No acute fracture or dislocation of the pelvis or either tibia or fibula is seen. If there is concern for an occult injury of the pelvis, cross-sectional imaging is recommended. Otherwise, if pain persists, repeat radiographs are recommended in 7-10 days. [facility] Workstation ID: [id number] XR Pelvis 1 View (Standard) Final Result 1. No acute fracture or dislocation of the pelvis or either tibia or fibula is seen. If there is concern for an occult injury of the pelvis, cross-sectional imaging is recommended. Otherwise, if pain persists, repeat radiographs are recommended in 7-10 days. [facility] Workstation ID: [id number] XR Chest 1 View Final Result No acute cardiopulmonary process. Workstation ID: [id number] Cosigned by Mala Gardner MD at 10/16/2024 10:45 PM EST Associated attestation - Mala Gardner MD - 10/16/2024 10:45 PM EST I agree with the Nurse practitioner's/Physician insurance assistant's note and plan by Markie Hendrickson [...] Associated Order(s): IP CONSULT TO TRAUMA SURGERY [facility] SURGICAL HISTORY & PHYSICAL/CONSULTATION [...] hypertension, anxiety, asthma who presented to [facility] with a chief complaint of shortness [...] a day . naloxone (NARCAN) 4 mg/actuation Quitman Administer 1 spray into one nostril for [...] 2:26 AM EST documented in this encounter [facility] 10-22-2024 Plan of care note Problem: [...] Absence of physical injury Outcome: Partially Met [facility] 10-21-2024 Note [facility] 10-21-2024 Note [facility] 10-21-2024 Plan of care note Problem: [...] level of psychosocial functioning Outcome: Partially Met [facility] 10-20-2024 Note [facility] 10-20-2024 Note [facility] 10-20-2024 Progress note Formatting of t his note might be different from the original. At 0515, this RN enters patient room to see TEDDY bandages on the floor. Patient stated that he removed them because I was too hot. Patient refused TEDDY wraps to be put on. This RN removed soiled gauze on left leg wound and re-wrapped with kerlix. Patient educated about risk of infection. [facility] 10-19-2024 Plan of care note Problem: [...] level of psychosocial functioning Outcome: Partially Met [facility] 10-19-2024 Note Formatting of this n ote might be different from the original. PHYSICAL THERAPY VISIT VARIANCE NOTE Attempted to see patient at this time, but unable secondary to: Patient Unavailable (Patient politely stated he is waiting on provider for debridement of leg). Will follow up as appropriate. [facility] 10-19-2024 Note Formatting of this n ote might be different from the original. OCCUPATIONAL THERAPY VISIT VARIANCE NOTE Attempted to see patient at this time, but unable secondary to: Patient Unavailable (plans for debridement in the next hour). Will follow up as appropriate. [facility] 10-19-[address] [facility] 10-19-2024 Procedure note Procedure(s): OR DEBRIDEMENT SUBCUTANEOUS TISSUE 1ST 20 SQ CM/<; OR DEBRIDEMENT SUBCUTANEOUS TISSUE EA ADDL 20 SQ CM Podiatry Inpatient Progress Note Cecilia Gonzales DPM [facility] Patient: Carmen Gilman Date of : 1965 (59 y.o.) PCP: Ani Worley, PACKAGE LINE RELIEF OPERATOR ASSESSMENT Bilateral lower extremity venous stasis [...] 5/5. Right midfoot collapse without rocker-bottom morphology [employer] Work Phone: 10-19-2024 Procedure note Procedure(s): OR DEBRIDEMENT SUBCUTANEOUS TISSUE 1ST 20 SQ CM/<; OR DEBRIDEMENT SUBCUTANEOUS TISSUE EA ADDL 20 SQ CM Podiatry Inpatient Progress Note Ceiclia Gonzales DPM [facility] Patient: Carmen Gilman Date of : 1965 (59 y.o.) PCP: Ani Worley, PACKAGE LINE RELIEF OPERATOR ASSESSMENT Bilateral lower extremity venous stasis [...] without rocker-bottom morphology documented in this encounter [facility] 10-19-[address] [facility] 10-19-2024 Hospital Discharge instructions Quyen Franco [...] be sent through Care Everywhere.Compression Fracture: Spine (Guamanian)documented in this encounter [facility] 10-19-2024 Progress note Formatting of t [...] planned for 1 PM. Primary nurse aware. [facility] 10-19-2024 Plan of care note Problem: [...] level of psychosocial functioning Outcome: Partially Met [facility] 10-18-[address] [facility] 10-18-2024 Note Formatting of this n ote might be different from the original. PHYSICAL THERAPY VISIT VARIANCE NOTE Attempted to see patient at this time, but unable secondary to: Patient Unavailable (Patient politely requested PT return later today as he is trying to take a nap. Stated he has already walked in the hallway). Will follow up as appropriate. [facility] 10-18-2024 Progress note Formatting of t his note might be different from the original. Pt asked for assistance with his dressing changed previously. Pt sleeping at this time. Will check back on pt. [facility] 10-18-2024 Progress note Formatting of [...] or call our 14/03 on-call number at [phone] with any questions, concerns or clinical updates. [facility] 10-18-2024 [facility] 10-18-2024 Progress note Formatting of t his note might be different from the original. Patient ambulating in gilman without assistance or TSLO brace. Educated patient on need to wear brace while out of bed, patient refusing at this time. Patient assisted back to room, sitting in chair. [facility] 10-18-2024 Plan of care note Problem: [...] level of psychosocial functioning Outcome: Partially Met [facility] 10-17-2024 Consult note Associated Order (s): IP CONSULT TO [facility] 10/17/2024 3:41 pm- [facility] consult received to set up home health care services. Name of [facility] agency: Pending / Accepted (if [facility], include region) Accepted- [facility] (orders) created for the following services: [or waiting for ____ (i.e wound care)] Yes- SN,PT,OT,FRUIT CULLER Verify demographics (residential address) [address] [place] [id number] What is the primary number to reach you? [phone] Following physician will be: (list first name/last name) Ani Worley CNP Do you have a caregiver and/or teachable caregiver (list relationship, name & phone #)? Lives alone with support from family members Estimated Discharge Date (NATI): 10/19 If discharge needs change, please reach out to liaison assigned on treatment team as [facility] is not notified of new consults once team is following. Thank you. [facility] 10-17-2024 Note [facility] 10-17-[address] [facility] 10-17-2024 Consult note Associated Order (s): [...] Final Result by Fransisco Camilo MD (10/15/2024 3305) 1. Suboptimal pulmonary artery opacification, but no [...] Gonzales DPM, MS Podiatric Physician & Surgeon [facility] 10-17-2024 Consult note Associated Order (s): IP CONSULT TO CARE MANAGEMENT Care Management Consult Note Date: 10/17/2024 Time: 2:46 PM Patient Name: Carmen Gilman Date of : 1965 Reason for Consult: Discharge Plan: Plan A: Home Health Care Services Plan B: Home Discharging Transportation Plan: Discharge Plan Status: pend medical readiness Assessment and Background Information: RN HERMANN Assessment: Face to Face with pt for initial transition planning/care coordination assessment. RN CM introduced self and role, pt voices understanding and consents to assessment. Pt is A/Ox4 and answers all questions appropriately at this time. Pt is lying in bed in no distress on 2L nc. Care providers, pharmacy, and demographics verified/updated. Admitting Dx: COPD, resp failure PCP: Meir CAR SEAT MAKER Specialists: none Preferred Pharmacy: [facility] Insurance: [facility] Prescription Benefit: yes, pt states no concerns obtaining/affording meds but states is not compliant with meds at home. Pt states 'I don't what I should be taking, I need a nurse to come in and help me with that.' LW/HPOA: does not have LNOK: Calin Gilman, brother Living Arrangements: Pt lives alone in [facility] independent living apartments with no steps and states needs assistance with all ADL's. Transportation: Pt drives self and states no concerns with transportation. DME/HHC/SNF: Pt states no need for further DME. Pt states has had HHC in the past and would like referral for discharge. Pt states no preference on HHC agency and declines list at this time. Order to [facility] for SN/PT/OT/aide. Pt has been to [facility] and [place] in the past and adamantly insists several times that he will not go back to a SNF. Pt states is in contact with a CM but unsure of their name/program. Pt is too young for [facility] so call to [place] waiver program, [facility], and they state pt was denied for [place] [facility] waiver program in September. Pt is on disability. Pt [...] routine activities due to chronic pain:: Yes [facility] 10-17-[address] [facility] 10-17-2024 Plan of care note Problem: Actual [...] level of psychosocial functioning Outcome: Partially Met [facility] 10-16-2024 Consult note Associated Order (s): IP CONSULT TO NEUROSURGERY Neurosurgery Inpatient Consult [facility] 10/16/2024 Radames Hendrickson PA-C [facility] Patient: Carmen Gilman Date of : [...] Jamar Escobedo MD naloxone (NARCAN) 4 mg/actuation Quitman Administer 1 spray into one nostril for [...] 5 5 Elbow Extension (Triceps) 5 5 Copy Holder (Flexor Digitorum) 5 5 Finger Abduction (Interossei) [...] Results Component Value Date NA 137 10/16/2024 [id number] 56.4 (H) 04/25/2022 INR 1.1 09/19/2023 HGB [...] abnormal signal in the thoracic spinal cord. [facility] Workstation ID: [id number] CT Thoracic [...] the remaining thoracic and lumbar spine. [facility] Workstation ID: [id number] CTA Pulm Art [...] repeat radiographs are recommended in 7-10 days. [facility] Workstation ID: [id number] [id number] Tibia Fibula Right 2 Views Final Result 1. No acute fracture or dislocation of the pelvis or either tibia or fibula is seen. If there is concern for an occult injury of the pelvis, cross-sectional imaging is recommended. Otherwise, if pain persists, repeat radiographs are recommended in 7-10 days. [facility] Workstation ID: [id number] [id number] Pelvis 1 View (Standard) Final Result 1. No acute fracture or dislocation of the pelvis or either tibia or fibula is seen. If there is concern for an occult injury of the pelvis, cross-sectional imaging is recommended. Otherwise, if pain persists, repeat radiographs are recommended in 7-10 days. [facility] Workstation ID: [id number] XR Chest 1 View Final Result No acute cardiopulmonary process. Workstation ID: [id number] Cosigned by Mala Gardner MD at 10/16/2024 10:45 PM EST Associated attestation - Mala Gardner MD - 10/16/2024 10:45 PM EST I agree with the Nurse practitioner's/Physician insurance assistant's note and plan by Markie Hendrickson [...] upright x-rays in the brace for reference. [employer] [place] [place] Work Phone: 10-16-2024 Progress note Formatting of t his note might be different from the original. 2020 Patient educated on compression stocking orders, continuous pulse ox, and cardiac monitoring. Patient declines all at this time, asking RN to contact doctor about injectable Lasix. Marcelina OLVERA notified at this time. 2100 Patient agreeable to pulse ox and compression stockings. Declines continuous cardiac monitoring. 0100 Patient requests left teddy wrap to be removed, states it is uncomfortable. Patient educated on order and advised to elevate legs. 0600 Patient continuous to decline cardiac monitoring, states my heart is fine. [facility] 10-16-2024 Plan of care note [...] level of psychosocial functioning Outcome: Partially Met [facility] 10-16-2024 Progress note Formatting of t his note might be different from the original. Tried to complete 4 eyes assessment. Patient refusing hospital gown, wants to wear his own clothes. This RN and Rosaline MENDOZA explained the 4 eyes assessment, patient replied I only have my legs that are open, you can look at those. Both Rosaline MENDOZA and Monica RN checked B/L legs, and arms. [facility] 10-16-2024 Emergency department Note Report called to floor. [facility] 10-16-2024 Emergency department Note Report [...] time. Call light is in reach. Trauma CAR SEAT MAKER Mery at the bedside for consult. Pt [...] arrival to room, we noted that pt's playground monitor is laying on the floor by the bed. Pt states that it fell onto his head. Small abrasion noted between patient's eyebrows, no bleeding noted at this time. Pt A&Ox4, resps even and unlabored, and no acute distress noted at this time. radio frequency design engineer Shelby and Dr Lozano notified. Will observe patient for [address] Lozano. Pt back from CT Pt refused toradol, stating I want my tramadol or subutex. This RN will notify Dr Lozano. Pt back from CT and refusing to have BP cuff on. Pt refused CT; Dr Lozano aware. Pt to xray Associated Order(s): Critical Care; ECG 12 Lead (Now) [facility] EMERGENCY DEPARTMENT ATTENDING NOTE: NAME: Carmen Gilman CSN: [id number] 59 y.o. PCP: Ani Worley CNP History: [...] a day . naloxone (NARCAN) 4 mg/actuation [place] Administer 1 spray into one nostril for [...] 2300 -- -- 88 17 100 % 10/15/24 2231 -- -- 79 18 100 % 10/15/24 2206 -- -- 93 17 96 % 10/15/242056 [...] All other components within normal limits Narrative: [facility] has implemented the eGFR [...] Procedure Abnormality Status --------- ------ CBC Auto Differential[[id number]] Abnormal Final result CBC and Diff Morphology[[id number]] Abnormal Final result Please view results for [...] in the remaining thoracic and lumbar spine. [employer] Workstation ID: [id number] CTA Pulm Art and [...] repeat radiographs are recommended in 7-10 days. [facility] Workstation ID: [id number] XR Tibia Fibula Right 2 Views Preliminary Result 1. No acute fracture or dislocation of the pelvis or either tibia or fibula is seen. If there is concern for an occult injury of the pelvis, cross-sectional imaging is recommended. Otherwise, if pain persists, repeat radiographs are recommended in 7-10 days. [facility] Workstation ID: [id number] XR Pelvis 1 View (Standard) Preliminary Result 1. No acute fracture or dislocation of the pelvis or either tibia or fibula is seen. If there is concern for an occult injury of the pelvis, cross-sectional imaging is recommended. Otherwise, if pain persists, repeat radiographs are recommended in 7-10 days. [facility] Workstation ID: [id number] XR Chest 1 [...] physician Rhythm: sinus rhythm BPM: 92 normal OR interval normal QRS interval Comments: Normal Bison OR not prolonged QRS not prolonged Qt<1/2 rr [...] Impression: 1. Acute respiratory failure with hypoxia ([facility]) 2. COPD exacerbation (HCC) 3. Cellulitis, unspecified cellulitis site 4. Sepsis, due to unspecified organism, unspecified whether acute organ dysfunction present ([facility]) 5. Compression fracture of T7 vertebra, initial encounter ([facility]) Disposition: ED Disposition None Jose Lozano MD, MD ED Attending Physician [facility] EMERGENCY DEPARTMENT Jose Lozano MD 10/15/24 6201 Pt to ED with c/c of shortness of breath. Onset all day worsening to now. PT wheezing, speaking in 2-3 words sentence. EMS reported patient was 75% on RA, increase to 98% on 2 lpm. Pt was given duoneb treatment via EMS. Pt also just finished antibiotics for leg infection. documented in this encounter [facility] 10-16-[address] [facility] 10-16-2024 Emergency department Note Bed: 47 Expected date: Expected time: Means of arrival: Comments: 19 [facility] 10-16-2024 Emergency department Note Hourly rounding assessment completed on the patient. [x] Patient updated on plan of care [x] All comfort needs addressed [x] Patient updated on duration of visit All questions answered, patient denies further needs. Call light within reach. [facility] 10-16-2024 Emergency department Note Hourly rounding assessment completed on the patient. [x] Patient updated on plan of care [x] All comfort needs addressed [x] Patient updated on duration of visit All questions answered, patient denies further needs. Call light within reach. [facility] 10-16-2024 Emergency department Note Hourly rounding assessment completed on the patient. [x] Patient updated on plan of care [x] All comfort needs addressed [x] Patient updated on duration of visit All questions answered, patient denies further needs. Call light within reach. [facility] 10-16-2024 History and physical note [facility] -- [facility] Patient Name: Carmen Gilman : 1965 MR #: [id number] Admit Date: 10/15/2024 Physicians: Ani Worley CNP [...] normal coloration Psych: normal mood and affect [facility] 10-16-2024 History and physical note [facility] -- [facility] Patient Name: Carmen Gilman : 1965 MR #: [id number] Admit Date: 10/15/2024 Physicians: Ani Worley CNP [...] disease) (HCC) Diabetes (HCC) Hypertension Opioid dependence ([facility]) Secondary adrenal insufficiency 04/30/2022 left AMA 04/30/22 [...] mood and affect documented in this encounter [facility] 10-15-2024 Emergency department Note Hourly rounding assessment completed on the patient. [x] Patient updated on plan of care [x] All comfort needs addressed [x] Patient updated on duration of visit All questions answered, patient denies further needs. Call light within reach. [facility] 10-15-2024 Emergency department Note Hourly rounding assessment completed on the patient. [x] Patient updated on plan of care [x] All comfort needs addressed [x] Patient updated on duration of visit All questions answered, patient denies further needs. Call light within reach. [facility] 10-15-2024 Consult note Associated Order (s): IP CONSULT TO [facility] SURGICAL HISTORY & PHYSICAL/CONSULTATION [...] hypertension, anxiety, asthma who presented to [facility] with a chief complaint of shortness [...] a day . naloxone (NARCAN) 4 mg/actuation Quitman Administer 1 spray into one nostril for [...] Maldonado MD at 10/16/2024 2:26 AM EST [facility] 10-15-2024 Emergency department Note Hourly [...] this time. Call light is in reach. [facility] 10-15-2024 Emergency department Note Trauma CAR SEAT MAKER Mery at the bedside for consult. [facility] 10-15-2024 Emergency department Note Pt still refusing to wear BP cuff even for a moment to check his BP [facility] 10-15-2024 Emergency department Note Hourly rounding assessment completed on the patient. [x] Patient updated on plan of care [x] All comfort needs addressed [x] Patient updated on duration of visit All questions answered, patient denies further needs. Call light within reach. [facility] 10-15-2024 Emergency department Note Pt yelling out, this RN and RN Dede to the bedside. Upon arrival to room, we noted that pt's playground monitor is laying on the floor by the bed. Pt states that it fell onto his head. Small abrasion noted between patient's eyebrows, no bleeding noted at this time. Pt A&Ox4, resps even and unlabored, and no acute distress noted at this time. radio frequency design engineer Mary and Dr Lozano notified. Will observe patient for [address] Lozano. [facility] 10-15-2024 Emergency department Note Pt back from CT [facility] 10-15-2024 Emergency department Note Pt refused toradol, stating I want my tramadol or subutex. This RN will notify Dr Lozano. [facility] 10-15-2024 Emergency department Note Pt back from CT and refusing to have BP cuff on. [facility] 10-15-2024 Emergency department Note Pt refused CT; Dr Lozano aware. [facility] 10-15-2024 Emergency department Note Pt to xray [facility] 10-15-2024 Physician Emergency department Note Associated Order(s): Critical Care; ECG 12 Lead (Now) [facility] EMERGENCY DEPARTMENT ATTENDING NOTE: NAME: Carmen Gilman CSN: [id number] 59 y.o. PCP: Ani Worley CNP History: [...] disease) (HCC) Diabetes (HCC) Hypertension Opioid dependence ([facility]) Secondary adrenal insufficiency 04/30/2022 left AMA 04/30/22 [...] SKIN GRAFT; Surgeon: Cecilia Gonzales DPM; Location: [facility] OR; Service: Podiatry THORACIC DUCT LIGATION [...] a day . naloxone (NARCAN) 4 mg/actuation [place] Administer 1 spray into one nostril for [...] 10/15/241900 -- -- -- -- 100 % 10/15/24 190 -- -- 85 18 100 % 10/15/24 [...] All other components within normal limits Narrative: [facility] has implemented the eGFR [...] Normal NT PRO BNP - Normal Narrative: Riggins Study Cut-offs Rule In: < /= 50 Years >450 pg/mL 51 Years - 75 Years >900 pg/mL 76 Years - 99 Years >1800 pg/mL Rule Out: All patients <300 pg/mL CBC AND DIFFERENTIAL Narrative: The following orders were created for panel order CBC and Differential. Procedure Abnormality Status --------- ------ CBC Auto Differential[[id number]] Abnormal Final result CBC and Diff Morphology[[id number]] Abnormal Final result Please view results for [...] the remaining thoracic and lumbar spine. [facility] Workstation ID: [id number] CTA Pulm Art [...] repeat radiographs are recommended in 7-10 days. [facility] Work[facility] ID: [id number] XR Tibia Fibula Right 2 Views Preliminary Result 1. No acute fracture or dislocation of the pelvis or either tibia or fibula is seen. If there is concern for an occult injury of the pelvis, cross-sectional imaging is recommended. Otherwise, if pain persists, repeat radiographs are recommended in 7-10 days. [facility] Workstation ID: [id number] [id number] Pelvis 1 View (Standard) Preliminary Result 1. No acute fracture or dislocation of the pelvis or either tibia or fibula is seen. If there is concern for an occult injury of the pelvis, cross-sectional imaging is recommended. Otherwise, if pain persists, repeat radiographs are recommended in 7-10 days. [facility] Workstation ID: [id number] XR Chest 1 [...] physician Rhythm: sinus rhythm BPM: 92 normal OR interval normal QRS interval Comments: Normal Bison OR not prolonged QRS not prolonged Qt<1/2 rr [...] Compression fracture of T7 vertebra, initial encounter ([facility]) Disposition: ED Disposition None Jose Lozano MD, MD ED Attending Physician [facility] EMERGENCY DEPARTMENT Jose Lozano MD 10/15/24 3776 [facility] 10-15-2024 Emergency department Triage note Pt to ED with c/c of shortness of breath. Onset all day worsening to now. PT wheezing, speaking in 2-3 words sentence. EMS reported patient was 75% on RA, increase to 98% on 2 lpm. Pt was given duoneb treatment via EMS. Pt also just finished antibiotics for leg infection. [facility] 07-05-2024 History of Present illness Narrative Patient Name: Carmen Gilman Admit Date: [id number] MR #: [id number] : 1965 Physicians: Ani Worley CNP (Family); [...] Daily, Christian Porter MD, 240 mg at 07/05/24942 enoxaparin (LOVENOX) syringe 40 mg, 40 mg, Subcutaneous, Daily, Christian Porter MD, 40 mg at 07/03/24911 furosemide (LASIX) tablet 40 mg, 40 mg, Oral, BID, Christian Porter MD, 40 mg at 07/05/24942 gabapentin (NEURONTIN) capsule 400 mg, 400 mg, Oral, Nightly, Christian Portre MD, 400 mg at 07/04/242009 ipratropium-albuteroL (DUO-NEB) [...] Daily, Christian Porter MD, 20 mg at 07/05/24942 predniSONE (DELTASONE) tablet 5 mg, 5 mg, Oral, Daily, Christian Porter MD, 5 mg at 07/05/24942 senna (SENOKOT) tablet 8.6 mg, 1 tablet, [...] Disp: , Rfl: naloxone (NARCAN) 4 mg/actuation [place], Administer 1 spray into one nostril for known or suspected opioid overdose. If patient worsens or does not respond, may repeat in 2-3 minutes. ., Disp: 2 each, Rfl: 1 pantoprazole (PROTONIX) 20 MG tablet, Take 1 (one) tablet (20 mg total) by mouth daily Start: 01/09/20., Disp: 30 tablet, Rfl: 0 spironolactone (ALDACTONE) [...] times a day ., Disp: , Rfl: PMH/PSH/SH/ reviewed, no change : Review of [...] excoriations Musculoskeletal: No joint swelling, non tender AUDIO PRODUCTION ENGINEER: Awake, and Ox3, looking depressed Wound: None but scabs of incisional scar in the right knee Tavera Catheter:None IV Access: Yes I reviewed Medications. I reviewed Labs. US Abdomen Limited Study Final Result Cirrhosis with splenomegaly. No ascites. No cholelithiasis or biliary ductal dilatation. No right hydronephrosis or nephrolithiasis. [facility] Workstation ID: [id number] XR Knee [...] to Current Admission?: Yes Final D/C Agency/Destination: [facility] Plan A: Home Health Care Services Discharging Transportation Plan: Discharge Plan Status: AMA Assessment and Background Information: Per CRANE MANAGER, pt left AMA at this time. Miguel Ángel from [facility] updated. [facility] liaison updated. SDOH Needs Addressed: Food Insecurity, Housing Stability, Financial Resource Strain, Transportation Needs Resources Provided - Food Insecurity: Added to AVS Resources Provided - Transportation Needs: Added to AVS Resources Provided - Housing Stability: Added to AVS ATTENDING PHYSICIAN CAMERON VARGAS MD PRIMARY CARE PHYSICIAN ANI WORLEY CNP ADMITTING PHYSICIAN CHRISTIAN PORTER MD CONSULTING PHYSICIAN [facility] Under sterile conditions with patient's consent, [...] for fluid cell analysis. D 07/05/2024 12:12 [id number] 07/05/2024 12:42 MCB/MODL ATTENDING PHYSICIAN CAMERON VARGAS MD PRIMARY CARE PHYSICIAN ANI WORLEY CNP ADMITTING PHYSICIAN CHRISTIAN PORTER MD CONSULTING PHYSICIAN [facility] [facility] Carmen's shoulder exams are completely benign. CAT scan, I do not understand the relevance of the CAT scan, but at this point in time, the shoulder exams are completely benign. We will proceed forward with aspiration on 07/05/2024 of his right knee. This is a chronic situation. D 07/04/2024 17:59 [id number] 07/04/2024 18:17 MCB/MODL Patient Name: Carmen Gilman Admit Date: [id number] MR #: [id number] : 1965 Physicians: Ani Worley, RODRIGUE (Family); [...] Christian Porter MD, 81 mg at 07/04/24 0922 azithromycin (ZITHROMAX) tablet 500 mg, 500 mg, Oral, Daily, Christian Porter MD, 500 mg at 07/04/24 0922 buprenorphine HCL (SUBUTEX) SL tablet 8 mg, 8 mg, Sublingual, BID, Christian Porter MD, 8 mg at 07/04/24 0922 ceFAZolin (ANCEF) IVPB 2 g (premix), 2,000 mg, Intravenous, Q8H, Christian Porter MD, Last Rate: 100 mL/hr at 07/04/24 1237, 2,000 mg at 07/04/24 1237 diltiazem (CARDIZEM CD) 24 hr capsule 240 mg, 240 mg, Oral, Daily, Christian Porter MD, 240 mg at 07/04/24 0928 enoxaparin (LOVENOX) syringe 40 mg, 40 mg, Subcutaneous, Daily, Christian Porter MD, 40 mg at 07/03/24 0912 furosemide (LASIX) tablet 40 mg, 40 mg, [...] Porter MD, 50 mg at 07/04/24 0922 PMH/PSH/SH/FH reviewed, no change : Review of [...] excoriations Musculoskeletal: No joint swelling, non tender AUDIO PRODUCTION ENGINEER: Awake, and Ox3, looking depressed Wound: None but scabs of incisional scar in the right knee Tavera Catheter:None IV Access: Yes I reviewed Medications. I reviewed Labs. US Abdomen Limited Study Preliminary Result Cirrhosis with splenomegaly. No ascites. No cholelithiasis or biliary ductal dilatation. No right hydronephrosis or nephrolithiasis. [facility] Workstation ID: [id number] Knee [...] to Current Admission?: Yes Final D/C Agency/Destination: [facility] Health Plan A: Home Health Care [...] Provided - Housing Stability: Added to AVS [facility] PROGRESS NOTE Assessment and Plan Carmen Gilman is a 58 y.o. adult patient of Ani Worley CNP with history of anxiety, arrhythmia, asthma, COPD, hypertension, opioid dependence, secondary adrenal insufficiency presented to [facility] on 07/02/2024 with shortness of breath. 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 [facility] accepted referral. AVS updated. ID currently following. If OPAT needed, will need to secure infusion pharmacy, SOC date, and place new [facility]. Is [facility] plan complete or pending? (List items pending) COMPLETE Name of [facility] agency: Pending / Accepted [facility] ACCEPTED Referrals sent to: (names of agencies) Please be advised that external agencies have 24 hours to respond to referrals. [facility] Infusion pharmacy: (name) Referral pending or accepted? For IV, TPN, or TF: Referral order placed? Has script been sent? (Yes/no) N/A Medication / frequency N/A Line / tube N/A [facility] (orders) placed? List services For OHIP - AR[facility] placed? [or waiting for ____ (i.e wound care)] YES - SN, PT, OT, FRUIT CULLER Please ensure pt/family understands skilled FRUIT CULLER is only for assisting with personal care once or twice weekly. Verify demographics (discharge address) [address] [place] [id number] What is the primary phone number? [phone] Who is your primary care physician? Ani Worley, PACKAGE LINE RELIEF OPERATOR Following physician will be: (first & last [...] = Start of Care TCG = Te[employer]able Land Measurer [facility] PROGRESS NOTE Assessment and Plan Carmen Gilman is a 58 y.o. adult patient of Ani Worley CNP with history of anxiety, arrhythmia, asthma, COPD, hypertension, opioid dependence, secondary adrenal insufficiency presented to [facility] on 07/02/2024 with shortness of breath. 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 Blayne Isaacs Liver cirrhosis [...] mood and affect documented in this encounter [facility] 07-05-[address] [facility] 07-05-2024 Plan of care note [id number] ENCOUNTER FOR HOME MEDICAL EQUIPMENT PATIENT: Carmen Gilman : 1965 Statement of Care: I certify that Carmen Gilman is under my care and that I, a Nurse Practitioner, Physician's Manager Testing, or Resident working with me, had a kkel-xm-djzz encounter with this patient today to evaluate and discuss the need for home medical equipment. I certify that based on the findings of this evaluation, which included but was not limited to the vgvx-kj-raty requirements, the following home medical equipment is medically necessary: Tub transfer bench, medically necessary to facilitate safe transfers in and out of tub. Signed by: Dre Ordonez MD on 07/05/2024 [employer] Work Phone: 07-05-2024 Miscellaneous Notes VOEW-MB-FYEI ENCOUNTER FOR HOME MEDICAL EQUIPMENT PATIENT: Carmen Gilman : 1965 Statement of Care: I certify that Carmen Gilman is under my care and that I, a Nurse Practitioner, Physician's Manager Testing, or Resident working with me, had a pbyx-vj-wtgb encounter with this patient today to evaluate and discuss the need for home medical equipment. I certify that based on the findings of this evaluation, which included but was not limited to the zqlu-gl-czjj requirements, the following home medical equipment is [...] importance of the monitoring. Patient still refused. [id number]-[id number]-[id number] ENCOUNTER FOR HOME MEDICAL EQUIPMENT PATIENT: Carmen Gilman : 1965 Statement of Care: I certify that Carmen Gilman is under my care and that I, a Nurse Practitioner, Physician's Manager Testing, or Resident working with me, had a lmob-yc-ljkr encounter with this patient today to evaluate and discuss the need for home medical equipment. I certify that based on the findings of this evaluation, which included but was not limited to the zdmu-bw-bmia requirements, the following home medical equipment is [...] Outcome: Partially Met documented in this encounter [facility] 07-05-[address] [facility] 07-04-2024 Plan of care note Problem: [...] Goal: Effective breathing pattern Outcome: Partially Met [facility] 07-04-[address] [facility] 07-04-2024 Progress note Formatting of t his note might be different from the original. Patient refusing cardiac monitoring. I educated the patient about the importance of the monitoring. Patient still refused. [facility] 07-04-2024 Progress note Formatting of t his note might be different from the original. MOWU-PV-YECQ ENCOUNTER FOR HOME MEDICAL EQUIPMENT PATIENT: Carmen Gilman : 1965 Statement of Care: I certify that Carmen Gilman is under my care and that I, a Nurse Practitioner, Physician's Manager Testing, or Resident working with me, had a mpkk-ww-yrmf encounter with this patient today to evaluate and discuss the need for home medical equipment. I certify that based on the findings of this evaluation, which included but was not limited to the lzes-vj-vnvy requirements, the following home medical equipment is medically necessary: shower chair for equipment to support patient's medical needs For safety with transfer in and out of shower Signed by: Cameron Vargas MD on 07/04/2024 [facility] 07-04-2024 Hospital course Narrative Images from the original note were not included. [facility] DISCHARGE SUMMARY -- [facility] Carmen Gilman Admitted: 07/02/2024 Discharge Date: 07/04/24 PCP Handoff Recommended Outpatient Testing Follow up with primary care and Ortho Results Pending At Discharge none Clinical Summary Assessment and Plan Carmen Gilman is a 58 y.o. adult patient of Ani Worley CNP with history of anxiety, arrhythmia, asthma, COPD, hypertension, opioid dependence, secondary adrenal insufficiency presented to [facility] on 07/02/2024 with shortness of breath. 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 naloxone 4 mg/actuation Quitman Commonly known as: NARCAN Administer 1 spray [...] Follow Up: OTHER - NOT IN LIST [facility] Address: N/a Servicing [facility]: [facility] [phone] Condition at Discharge: Stable Disposition: HOME AMA I reviewed discharge recommendations with the patient in person. Patient instructions, including activity, were given to the patient/family at discharge. On day of discharge I saw Carmen Gilman and spent: > 30 minutes on discharge. Completed by: Cameron Vargas MD on 07/04/24, 11:02 AM documented in this encounter [facility] 07-04-2024 Progress note Formatting of t his note might be different from the original. Patient refusing IV at this time. [facility] 07-04-2024 Plan of care note [...] level of psychosocial functioning Outcome: Partially Met [facility] 07-04-2024 Progress note Formatting of t his note might be different from the original. Dr Ruby notified patient refused further IV antibiotics.no new orders noted. [facility] 07-03-2024 Consult note Formatting of th is note might be different from the original. ATTENDING PHYSICIAN [facility] PRIMARY CARE PHYSICIAN ANI WORLEY CNP ADMITTING PHYSICIAN CHRISTIAN PORTER MD CONSULTING PHYSICIAN [facility] Carmen is a gentleman who I [...] Appendectomy, right knee replacement, we believe in 2020. He has had right foot debridement with [...] Orthopedics at this time. D 07/03/2024 17:03 [id number] 07/03/2024 17:50 MCB/MODL [facility] 07-03-2024 Consult note Formatting of th is note might be different from the original. ATTENDING PHYSICIAN [facility]ITAL[facility] PRIMARY CARE PHYSICIAN ANI WORLEY CNP ADMITTING PHYSICIAN CHRISTIAN PORTER MD CONSULTING PHYSICIAN [facility]ITAL[facility] Carmen is a gentleman who I have known from years gone by. He had a right knee replacement many years ago. He is unsure of exactly when it was, but we believe that it was back in December of 2019 during the year. He has multiple medical issues, has [...] Orthopedics at this time. D 07/03/2024 17:03 [id number] 07/03/2024 17:50 MCB/MODL Associated Order(s): IP CONSULT TO HOME HEALTH HUB Images from the original note were not included. Per chart review noted ID following; please notify Hub liaisons if OPAT needed at MD. Will need name/number of confirmed TCG. Name of [facility] agency: Pending / Accepted (if [facility], include region) Pending: [facility] First Choice HC Matters [facility] Interim Declined: [place]area [facility] (orders) created for the following services: [or waiting for ____ (i.e wound care)] SN/PT/OT/aide Verify demographics (residential address) [address] [place] [address] What is the primary number to reach you? [phone] Who is your family physician/primary care physician? Ani Worley, PACKAGE LINE RELIEF OPERATOR General - Family Medicine [phone] Do you have a caregiver and/or teachable caregiver (list relationship, name & phone #)? CALIN GILMAN (Relative)/brother Estimated Discharge Date (NATI): 07/04 If discharge needs change, please reach out to liaison assigned on treatment team as hub is not notified of new consults once team is following. Thank you. Patient Name: Carmen Gilman MR #: [id number] : 1965 Physicians: Ani Worley CNP (Family); [...] chronic hepatitis C, had been treated at [facility] by Dr. Hayden. I had the opportunity [...] that patient just got out of the senior living about 2 weeks ago and had been [...] medical readiness Assessment and Background Information: RN HERMANN Assessment: Face to Face with pt for [...] PCP: Meir ARELLANO Specialists: none Preferred Pharmacy: [facility] Insurance: [facility] Prescription Benefit: yes, pt states no concerns [...] like tub bench at home and this KELLY CM to discuss with physician. Pt states no hx of HHC but would like HHC set up for discharge and states no preference on agency. Order to [facility] hub for SN/PT/OT/aide. Pt states was recently at [facility] for rehab. Pt is on disability. Pt [...] chronic pain:: Yes documented in this encounter [facility] 07-03-2024 Consult note Associated Order (s): IP CONSULT TO HOME HEALTH HUB Images from the original note were not included. Per chart review noted ID following; please notify Hub liaisons if OPAT needed at [place]. Will need name/number of confirmed TCG. Name of [facility] agency: Pending / Accepted (if [facility], include region) Pending: BARBARA Rogel First Choice HC Matters [facility] Interim Declined: [place] [facility] (orders) created for the following services: [or waiting for ____ (i.e wound care)] SN/PT/OT/aide Verify demographics (residential address) [address] [address] What is the primary number to reach you? [phone] Who is your family physician/primary care physician? Ani Worley, PACKAGE LINE RELIEF OPERATOR General - Family Medicine [phone] Do you have a caregiver and/or teachable caregiver (list relationship, name & phone #)? CALIN GILMAN (Relative)/brother Estimated Discharge Date (NATI): 07/04 If discharge needs change, please reach out to liaison assigned on treatment team as hub is not notified of new consults once team is following. Thank you. [facility] 07-03-2024 Consult note Formatting of th is note is different from the original. Patient Name: Carmen Gilman MR #: [id number] : 1965 Physicians: Ani Worley CNP (Family); [...] chronic hepatitis C, had been treated at [facility] by Dr. Hayden. I had the opportunity [...] that patient just got out of the senior living about 2 weeks ago and had been [...] meaning can be extrapolated by contextual derivation. [facility] 07-03-2024 Consult note Associated Order (s): [...] PCP: Meir ARELLANO Specialists: none Preferred Pharmacy: [facility] Insurance: [facility] Prescription Benefit: yes, pt states no concerns [...] states no preference on agency. Order to [facility] hub for SN/PT/OT/aide. Pt states was recently at [facility] for rehab. Pt is on disability. Pt [...] routine activities due to chronic pain:: Yes [facility] 07-03-2024 Progress note Formatting of t his note might be different from the original. Pt refused to order food from dietary unless he has a regular menu. Dr. Vargas notified and pt diet changed to regular per request. [facility] 07-03-2024 Hospital Discharge instructions Rachelle Yang RN - 07/03/2024 8:04 AM EST These are the low income housing and apartments in [place], [place]. Many of these apartments have waiting lists. Make sure you phone the apartments directly for full details and office hours. Do not get discouraged. Through our experience, we have learned that you will need to contact many apartments. If you stick with it, you will find that apartment that you love, with availability. AFFORDABLE APARTMENTS [facility] Apartments [address] [place] [address] Family Housing [place] [address] [place] [address] Family Housing [facility] [address] [place] [address] Kevan Farris (Charly) Family Housing [place] Apartments [address] [place] [address] [facility] [address] [place], [place] [address] Family Housing [facility] [address] [place] [address] [place] [facility] [address] [place] [address] Family Housing [place] [address] [place] [address] Disabled Housing [facility] [address] [place] [address] Family Housing [facility] [address] [facility] [address] [place] [address] Family Housing [facility] [address] [place] [address] Family Housing [place] [address] [place] [address] Family Housing [facility] [address] [place] [address] Jeff Family Housing [facility] Apartments [address] [place] [address] Family Housing [place] [address] [place], [place] [id number] [facility] EMERGENCY HOUSING [employer] [address] [place] [address] Alanis Daugherty Domestic Violence Halfway 24 hr. Molly Lui 4 [employer] (Men only) [place] [address] [place] [address] [employer] RP Demar/Rent Assistance [facility] [address] [facility] [address] [place] [address] [facility] FEMA Funds [facility] [address] [place] [address] BUDGET & FINANCIAL SERVICES [employer] [address] [facility] [address] [place] [address] Budget counseling and debt management program. They help people attain lower credit card interest rates, stop fees and collection activity [employer]ging[employer] Residential State Supplement Program [address] [facility] [place] [address] Services are - information and referral services, supportive and in-home services, training, housing and service development, residential state supplement program. Care Choice [place]: Community Care Coordination and Housing Choices for seniors. 60 & older [facility] [address] [place] [address] At [facility], we believe in educating and empowering families and individuals to help them make flood money management decisions. Financial education workshops are held regularly at [facility]. The workshops are free and open to the public. Job & Family Services - [facility] [address] [place] [address] Food stamps, Medicaid, prevention, retention and contingency funds and keane assistance [facility] Housing Authority Section 8 Voucher ([employer]) [address] [place] [address] This is a housing subsidy agent. Its function is to bring together the sole tacker of property and low/moderate - income persons who meet certain criteria. [facility] [address] [place] [address] Program areas of emphasis include - leadership development of adults and youth, management of resources, family budgeting and farm financial operations clerk, nutrition, lawn and garden care and other aspects of home economics, agriculture and youth development. [facility] Service Commission [address] ([facility]) [place] [address] Temporary aid, including limited financial assistance to resident veterans of [facility] Security Administration [address] [place] [place] [address] Toll Free Assist in the filing of claims for detention, disability or survivor keane benefits, as well as claims to establish eligibility for Medicare coverage. Also assist in filing claims for Supplemental Security Income Program which provides keane benefits to aged, blind or disabled people who have limited income and resources. www.socialsecurity.gov FOLDING MACHINE FEEDER [facility] ([facility] Y) [address] [place] [address] Tuesday thru Tuesday 6:30 am to 5:30 pm 6 weeks to 12 yrs. 5 [facility] [address] [place] [address] Tuesday thru Tuesday 6:00 am to 6:00 pm 6 weeks to 12 yrs. [facility] Bindery Assistant [address] [place] [address] Tuesday thru Tuesday 5:30 am to 6:30 pm 6 weeks to 12 yrs. Early [facility] [address] [place] [address] Tuesday thru Tuesday 7:00 am to 5:30 pm 6 weeks to 12 yrs. [facility] [address] [place] [address] Tuesday thru Tuesday 5:00 am to 6:00 pm 6 weeks to 12 yrs. [employer] [facility] ([place] [facility]) [address] [place] [address] Tuesday thru Tuesday 6:30 am to 5:30 pm 6 weeks to 12 yrs. [facility] [address] [place], [place] [address] Tuesday thru Tuesday 6:30 am to 6:00 pm 3-6 year olds After school K thru 6th [employer] [address] [place] [address] Tuesday thru Tuesday 6:30 am to 6:30 pm 6 weeks to 12 yrs. Rosanna Blessings [address] [facility] [address] Tuesday thru Tuesday 5:30 am to 7:00 pm 6 weeks to 12 yrs. [employer] [address] [place] [address] Tuesday thru Tuesday 7:00 am to 9:00 pm 6 weeks to 12 yrs. [place] [facility] [address] [facility] [address] Tuesday thru Tuesday 6:30 am to 6:00 pm 6 weeks to 12 yrs. [facility] Child Development Center [address] [place] [address] Tuesday thru Tuesday 7:00 am to 5:30 pm 6 weeks through K [facility] ([place] [facility]) [address] [place] [address] Tuesday thru Tuesday 6:30 am to 5:30 pm 6 weeks to 12 yrs. [facility] Bindery Assistant & Education Center [address] [place] [address] Tuesday thru Tuesday 6:30 am to 5:30 pm 6 weeks to 11 yrs. [facility] [address] [place] [address] Tuesday thru Tuesday 5:30 am to 11:30 p.m. Tuesday 6:00 am to 6:30 pm 6 weeks to 12 yrs. 6 EMERGENCY ASSISTANCE [employer] Supporting Homeless Services in [facility]) [address] [place] [address] Clothing Hours Tues - Sat. 10:00 AM - 4:00 PM [employer] [facility] [address] [place] [address] [place] [address] [place] [address] Provides disaster relief, support to families, and health and safety training. [facility] [address] [place], [place] [address] Food, Clothing, Activities Tuesday 10:00 AM - 6:00 PM 10:00 AM - 4:00 PM Tuesday 10:00 AM - 2:00 PM Tuesday 10:00 AM - 2:00 PM [employer] [address] [place] [address] Material assistance program which includes food, prescription, rent, and medical bills. [employer] ([employer]) [address] [place]. [address] ([phone]) ext.230 Hrs.: Mon//Tue 8:30am-12:30pm 8:30-11:00am & 1:00-3:30pm Curbside Drive-Thru, Delivery by agency referral to seniors and households w/o transportation. Eligibility: walk-in, food every 30 days Intake: photo ID and proof of [facility]. residency (current piece of mail accepted as proof) CD Emergency Repair Funds Community Dev. Office [facility] [address] [place] [address] Provides assistance with home repairs. Community Action Commission of [facility] HEAP Program (Winter & Summer) [address] [place] [address] Provides emergency heating and air conditioning, one-time assistance, and other utility assistance 10 [facility] Program (Contact [place] [employer]) [address] [place] [address] Distribution of food, clothing, linens, and toys is usually the second before Alex (may vary). day care aide offered all year round. Emergency Food Assistance ([employer]) [address] [place] [address] [facility] parking lot at corner of [facility] Luis Daniel [place], [place] Free Fresh Produce Distributions es. of each Month - December - Drive-through only [place] bags & boxes - One form of ID required [employer] Store: [address] [facility] [place] [address] Store: [address] [place], [place] [phone] Mon. - Sun. 10:00 AM - 6:00 PM [facility] [address] [place], [place] [id number] Every other Wed. 3-6pm beginning December 25 and every . 9:00 am to noon Intake: photo ID, proof of residency if different from ID Drive-thru or walk up only [employer] [address] [place], [place] [id number] Provides weatherization and home safety services. [facility] [address] [place], [place] [phone] A homeless intermediate that provides emergency, temporary housing. Information Line First [employer] [address] [place] [address] A telephone information and referral services Information is collected on social service agencies, support groups, churches, clubs and organizations, government offices, cultural and recreational institutions located in [facility]. [facility] welcomes you to [place] - Hot Meal Outreach [address] [address] Tuesday each month Livier Andrew [facility] [place] [address] Hrs.: Every ., 6:15pm-7:00pm (Must be registered) Intake: To register, call [employer] at for screening and referral, Tues. & Wed. 9:30am-noon [employer] [address] [place] [address] Phone calls only. Tues. & Wed. Assists in short term help. [facility] [address] [place], [place] [address] Must live in [address] [address] Hrs.: 2nd & 4th Sat. each month 9:00-11:00am Note! Drive-thru only. No public restrooms Eligibility: Agata, Andreina, Sigifredo [address] Intake: Photo ID required & proof of address, i.e. recent utility bill, medical bill, etc. with current address [facility] [address] [place], [place] Free Fresh Produce 2nd Sat. of each month - [place] annually Curriculum And Assessment Coordinator's license or State ID required 11 Lonny Zamora [facility] - Food Pantry [address] [place] [address] Fridays 9:00 am to 3:00 pm Call the [facility] before coming. [facility] - Food Pantry [address] [place] [address] Hours: Tuesday of the month. 1000 am to 3:00 pm. Call [facility] with number of people in family, address, and phone number for them to call you back with pick up operator time for the next day. Must have phone number so we can call to tell you when to come and pick up operator food. [place] residents only [facility] [address] [facility] [place] [address] Hrs.: Third Wed. of the month 9:30am, during monthly breakfast Intake: photo ID & proof of residency Eligibility: may use pantry every other month [employer] [address] [facility] [address] Free Fresh Produce Tuesday - January 18 4th Sat. of the month - Drive thru only Fill out intake form - no documents required [facility] [address] [place] [address] Hrs.: Third Sat. each month 9:30-10:30am Eligibility: Anyone in need, up to six times per year Intake: photo ID, proof of residency [facility] [address] [place] [address] Hrs.: Third Sat. from 1-2pm Intake: Curriculum And Assessment Coordinator's license/photo ID Area served: Agata, [facility] [employer] [address] [address] Provides free meals and food assistance Third Tuesday of every month [employer] (Supporting [employer]) [address] [place] [address] Also: [address] [place] [address] Habitat builds or remodels homes for low-income families. Hours: Tue, Tue., Sat. 11:00 AM - 5:00 PM 12:00 PM - 5:00 PM [facility] Veterans Services Commission [address] [place] [address] Provides residents with temporary emergency financial analyst for [facility] veterans who have met unexpected hardship or crisis. [facility] - Food Pantry [address] [place] [address] [facility] food pantry supports families with food in times of need. Please call to set up arrangements. [facility] only. [facility] [address] [place] [address] Helps with housing, rent, food, and shoes, during school months Food Pantry: Tuesday - Tuesday 10:30am-2:00pm Eligibility: 18 or older (carry out only) Intake: Proof of [facility]. Residency (clients should seek assistance from the [place] Chapter closest to their residence) [place] [employer] [address] [place] [address] Provides assistance with home repairs. [place] [employer] [address] [place] [address] Direct financial analyst assistance with rent, utilities, etc. Furniture linkage for persons in need of furniture, school clothes, exchange in March for school age children and youth to receive school supplies and clothes. [employer] [address] [place] [address] Tuesday thru Tuesday 9 am to 6 pm Tuesday 9 am to 5 pm 12 [facility] [address] [place] [address] Clothing Closet [employer] [facility] [address] [place] [address] Clothing Closet only 10 am to 5 pm $5.00 per bag; open to all [employer] [facility] [address] [place] [address] Food Pantry 6:15 pm to 7pm By appointment only [facility] [address] [place] [address] Thrift Store Tuesday thru Tuesday 10am to 7pm Tuesday 12pm to 6pm [employer] [address] [place] [address] Thrift Store Tuesday thru Tuesday 10am to 4pm Tuesday 10am to 2 pm TRANSPORTATION Agency Transportation Advisory Committee [facility] Regional Planning Commission [address] [place] [address] Coordination of available transportation for people with disabilities, people over 60, or those who are otherwise disadvantaged. [employer] [address] [place], [place] [phone] Service available 7 days a week 24 hours a day [employer] *Bus Stop Only [address] [place] [address] Job & Family Services [facility] [address] [place] [address] The Enhanced Medicaid Transportation Services (SCREED OPERATOR) program provides non-emergency transportation for Medicaid eligible recipients. [facility] Transit (RCT) [address] [place] [address] Tickets Bus Terminal Buses cover nearly all of the [facility], portions of [place] [facility], the [facility], and industrial areas. This is the most flexible and cost effective transportation available. [facility] RESOURCE GUIDE FCP/SOCIAL SERVICE/RESOURCE GUIDES June 19, 2020 The following attachments cannot be sent through Care Everywhere.Food Insecurity: General Info (Guamanian)documented in this encounter [facility] 07-03-2024 Plan of care note Problem: [...] of skin protection measures Outcome: Partially Met [facility] 07-02-2024 Emergency department Note Bed: 39 Expected date: Expected time: Means of arrival: Comments: 17 [facility] 07-02-2024 Emergency department Note Bed: 39 Expected date: Expected time: Means of arrival: Comments: 17 Patient with call light on, educated that patient not to have food or drink until CT results back. TO CT VIA CART CT CALLED TO ADVISE OF NEW IV SITE IN FOR SCAN PT ADVISED OF CT SCAN ORDERED AND HE STATES IM NOT DOING THAT PT ADVISED OF D DIMER ELEVATED AND THAT DR NEEDS TO DETERMINE IF HE MAY HAVE A BLOOD CLOT IN HIS LUNGS PT STATES I CAN'T GO IN A TUBE I DONT LIKE IT PT ADVISED HE CAME TO THE HOSPITAL FOR HELP AND THIS TEST IS VERY IMPORTANT TO HIS HEALTH. HE ALSO IS REFUSING TO LEAVE BP CUFF ON. AGAIN REMINDED HIM OF THE IMPORTANCE OF MONITORING THIS WAS PUT ON HIS LOWER FA PER HIS REQUEST PT DID AGREE TO HAVE CT OF CHEST Associated Order(s): ECG 12 Lead (Now) [facility] EMERGENCY DEPARTMENT ATTENDING NOTE: NAME: Carmen Gilman CSN: [id number] 58 y.o. PCP: Ani Worley CNP History: [...] Robotic; Surgeon: Sofía Dukes MD; Location: Main [place]; Service: Ortho-Robotics DEBRIDEMENT WITH WOUND CLOSURE POSS [...] a day . naloxone (NARCAN) 4 mg/actuation Quitman Administer 1 spray into one nostril for [...] 78 (!) 20 96 % -- -- 07/02/24 2000 119/84 -- -- 79 (!) 19 96 [...] All other components within normal limits Narrative: [facility] Laboratory Services has implemented the eGFR [...] Procedure Abnormality Status --------- ------ CBC Auto Differential[[id number]] Abnormal Final result Please view results for [...] physician Rhythm: sinus rhythm BPM: 75 normal OR interval normal QRS interval Comments: Normal Bison OR not prolonged QRS not prolonged Qt<1/2 rr [...] Jose Lozano MD, MD ED Attending Physician [facility] EMERGENCY DEPARTMENT Jose Lozano MD 07/03/24 0058 Pt to ed for sudden onset of shortness of breath. Patient has COPD but states the shortness of breath was worse this time. Patient took approx 7-10 hits of his inhaler and states he feels, back to normal. Denies chest pain. Bed: 17 Expected date: Expected time: Means of arrival: Comments: r1 documented in this encounter [facility] 07-02-2024 History and physical note [facility] -- [facility] Patient Name: Carmen Gilman : 1965 MR #: [id number] Admit Date: 07/02/2024 Physicians: Ani Worley CNP (Family); No ref. provider found (Referring) Carmen Gilman is a 58 y.o. adult patient of Ani Worley CNP with history of anxiety, arrhythmia, asthma, COPD, hypertension, opioid dependence, secondary adrenal insufficiency presented to [facility] on 07/02/2024 with shortness of breath. 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 Pt states that he has had ARROYO today. Pt sat down as he was very short of breath. Pt noticed some swelling in his legs recently as well. He states he's not taking his meds. He just got out of the senior living 2 weeks ago. Pt had been at [...] right leg Psych: normal mood and affect [facility] 07-02-2024 History and physical note [facility] -- [facility] Patient Name: Carmen Gilman : 1965 MR #: [id number] Admit Date: 07/02/2024 Physicians: Ani Worley CNP (Family); No ref. provider found (Referring) Carmen Gilman is a 58 y.o. adult patient of Ani Worley CNP with history of anxiety, arrhythmia, asthma, COPD, hypertension, opioid dependence, secondary adrenal insufficiency presented to [facility] on 07/02/2024 with shortness of breath. 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 Pt states that he has had ARROYO today. Pt sat down as he was very short of breath. Pt noticed some swelling in his legs recently as well. He states he's not taking his meds. He just got out of the senior living 2 weeks ago. Pt had been at [...] mood and affect documented in this encounter [facility] 07-02-2024 Note 1. Suboptimal evaluation of [...] infection is not excluded. Workstation ID: [id number] [facility] 07-02-2024 Emergency department Note Patient with call light on, educated that patient not to have food or drink until CT results back. [facility] 07-02-20[address] Emergency [address] CT VIA CART [facility] 07-02-[address] CALLED TO ADVISE OF NEW IV SITE IN FOR SCAN [facility] 07-02-2024 Emergency department Note PT ADVISED OF CT SCAN ORDERED AND HE STATES IM NOT DOING THAT PT ADVISED OF D DIMER ELEVATED AND THAT DR NEEDS TO DETERMINE IF HE MAY HAVE A BLOOD CLOT IN HIS LUNGS PT STATES I CAN'T GO IN A TUBE I DONT LIKE IT PT ADVISED HE CAME TO THE HOSPITAL FOR HELP AND THIS TEST IS VERY IMPORTANT TO HIS HEALTH. HE ALSO IS REFUSING TO LEAVE BP CUFF ON. AGAIN REMINDED HIM OF THE IMPORTANCE OF MONITORING THIS WAS PUT ON HIS LOWER FA PER HIS REQUEST PT DID AGREE TO HAVE CT OF CHEST [facility] 07-02-2024 Physician Emergency department Note Associated Order(s): ECG 12 Lead (Now) [facility] EMERGENCY DEPARTMENT ATTENDING NOTE: NAME: Carmen Gilman CSN: [id number] 58 y.o. PCP: Ani Worley CNP History: [...] SKIN GRAFT; Surgeon: Cecilia Gonzales DPM; Location: [facility] OR; Service: Podiatry THORACIC DUCT LIGATION [...] a day . naloxone (NARCAN) 4 mg/actuation Quitman Administer 1 spray into one nostril for [...] 78 (!) 20 96 % -- -- 07/02/24 2000 119/84 -- -- 79 (!) 19 96 [...] All other components within normal limits Narrative: [facility] Laboratory Services has implemented the eGFR [...] Procedure Abnormality Status --------- ------ CBC Auto Differential[[id number]] Abnormal Final result Please view results for [...] physician Rhythm: sinus rhythm BPM: 75 normal OR interval normal QRS interval Comments: Normal Bison OR not prolonged QRS not prolonged Qt<1/2 rr [...] Jose Lozano MD, MD ED Attending Physician [facility] EMERGENCY DEPARTMENT Jose Lozano MD 07/03/24 0058 [facility] 07-02-2024 Emergency department Triage note Pt to ed for sudden onset of shortness of breath. Patient has COPD but states the shortness of breath was worse this time. Patient took approx 7-10 hits of his inhaler and states he feels, back to normal. Denies chest pain. [facility] 07-02-2024 Emergency department Note Bed: 17 Expected date: Expected time: Means of arrival: Comments: r1 [facility] 01-17-2024 History of Present illness Narrative [...] to errors including those of syntax and sound-alike substitutions which may escape proofreading. In such instances, original meaning may be extrapolated by contextual derivation. ALEXEY Radford DPM Podiatric Foot & Ankle Surgery documented in this encounter [facility] 09-09-2023 History of Present illness Narrative [...] intact. Protective sensation is diminished using the [place] monofilament. Dermatologic: See images below. Musculoskeletal: [...] to errors including those of syntax and sound-alike substitutions which may escape proofreading. In such instances, original meaning may be extrapolated by contextual derivation. Cecilia Gonzales DPM, MS Podiatric Physician & Surgeon documented in this encounter [facility] 09-02-2023 History of Present illness Narrative [...] intact. Protective sensation is diminished using the [place] monofilament. Dermatologic: See images below. Musculoskeletal: [...] to errors including those of syntax and sound-alike substitutions which may escape proofreading. In such instances, original meaning may be extrapolated by contextual derivation. Cecilia Gonzales DPM, MS Podiatric Physician & Surgeon documented in this encounter [facility] 09-02-2023 Instructions Ronit Jolanta Campbell RN - 09/02/2023 2:56 PM EST Adaptic, 4x4's, kerlix, coban from toes to knee Do not change dressing Keep clean and dry F/u 1 week documented in this encounter [facility] 08-26-2023 History of Present illness Narrative Complete note to follow documented in this encounter [facility] 08-26-2023 History of Present illness Narrative [...] intact. Protective sensation is diminished using the [place] monofilament. Dermatologic: See images below. Musculoskeletal: Patient is able to wiggle digits. Ankle joint range of motion is intact. Muscle strength is 5/5 to dorsiflexors, plantar flexors, inverters and everters. Compartments soft and compressible. No calf pain Diagnoses: 1. 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) Wound 08/05/23 1 Surgical Wound Upper Leg Anterior;Right (Active) Wound Image 08/26/23 1356 Assessment/Plan: Patient was seen and evaluated. Discussed all clinical findings Patient is doing very well postoperatively. Patient's right thigh harvest site is healing appropriately. Patient's right leg split-thickness skin graft site is incorporating very well, more than 90% All tammy were removed today without incident. Apply Gavion to wound at the site of staple [...] to errors including those of syntax and sound-alike substitutions which may escape proofreading. In such instances, original meaning may be extrapolated by contextual derivation. Cecilia Gonzales DPM, MS Podiatric Physician & Surgeon documented in this encounter [facility] 08-26-2023 Instructions Jessenia Cruz RN - 08/26/2023 1:55 PM EST Vaseline to bilateral legs dry skin Irrigate with saline and pad dry Apply gavino to all open wound edges Adaptic 4x4's, kerlix, coban from toes to knee F/u 1 week documented in this encounter [facility] 08-19-2023 History of Present illness Narrative [...] cm^3 07/29/23 1319 Area % Change 0 07/29/239 Wound Healing % 96 07/29/23 1319 Wound Progress No change 07/15/23 0747 State of Healing Non-healing 07/15/23 0747 Non-staged Wound Description Partial thickness 07/08/23 1335 Drainage Amount Small 07/29/23 1319 Drainage Description Serosanguineous 07/29/23 1319 Odor None 07/29/239 Wound Margin Attached to wound base 07/15/23 0747 Adherent Yellow Slough % 1-25% 07/29/231318 Epithelialization % 1-25% 07/15/23 07 Granulation % Bright red 07/29/231318 Exposed Structure None 07/29/231318 Wound Bed Characteristics [...] Partial thickness 07/15/23 0747 Drainage Amount Moderate 07/29/231314 Drainage Description Serosanguineous;Green 07/29/23 1315 Odor None 07/29/231314 Wound Margin Attached to wound base 07/15/23 [...] was tolerated well documented in this encounter [facility] 08-19-2023 Instructions Ronit Jolanta Campbell RN - 08/19/2023 12:26 PM EST Gavino to all open areas bilaterally, 4x4's, kerlix, coban from toes to knee F/u 1 week documented in this encounter [facility] 08-11-2023 History of Present illness Narrative Images from the original note were not included. Patient Name: Carmen Gilman Admit Date: [id number] MR #: [id number] : 1965 Physicians: Ani Worley, RODRIGUE (Family); No ref. provider found (Referring) Assessment: Patient with 1. Right lower extremity nonhealing wound 2. Right Knee abscess, with suspicion for prosthetic right knee infection. 3. Chronic hepatitis C,(treated at [facility], and negative hepatitis C RNA.) 4. [...] post skin graft. Continue dressing as per benzene worker recommendation. Podiatry is recommending patient to stay [...] 5 mg, Oral, Nightly PRN, Dee Carnes, PACKAGE LINE RELIEF OPERATOR, 5 mg at 08/10/23 2233 meloxicam (MOBIC) [...] Disp: , Rfl: naloxone (NARCAN) 4 mg/actuation Quitman, Administer 1 spray into one nostril for [...] knee with drainage, and wound. Area dressed. AUDIO PRODUCTION ENGINEER: Awake, and Ox3, Wound: Ulceration of the [...] extremity subcutaneous tissues, which could represent cellulitis. [facility] Workstation ID: [id number] Laboratory and Additional [...] Podiatry Inpatient progress note 08/11/2023 Quyen Franco, RODRIGUE [facility] Patient Name: Carmen Gilman. . [...] pedal complaints. Anxious to get discharged to [facility] today. Physical Examination: BP 129/68 Pulse 67 [...] Quyen Franco Medical Transportation set up by [facility] per hospital request: Date:08/11/23 Time:3pm Destination: [place] [address] Company: [employer] ([phone]) Special needs/equipment:N/A Truck Type: Ambulance Companies called: [...] chart from id team - faxed to [place] - transport requested from [facility] - will [...] as soon as the time is secured. [facility] Assessment and Plan Carmen Gilman [...] and esophageal varices, pancytopenia, presented to [facility] due to wounds in the lower [...] He would like to go back to [facility] as soon as possible. BP (!) [...] Carmen Gilman Admit Date: [id number] MR #: [id number] : 1965 Physicians: Ani Worley, PACKAGE LINE RELIEF OPERATOR (Family); No ref. provider found (Referring) Assessment: Patient with 1. Right lower extremity nonhealing wound 2. Right Knee abscess, with suspicion for prosthetic right knee infection. 3. Chronic hepatitis C,(treated at [facility], and negative hepatitis C RNA.) 4. [...] post skin graft. Continue dressing as per benzene worker recommendation. Podiatry is recommending patient to stay [...] knee with drainage, and wound. Area dressed. AUDIO PRODUCTION ENGINEER: Awake, and Ox3, Wound: Ulceration of the [...] extremity subcutaneous tissues, which could represent cellulitis. [facility] Workstation ID: [id number] Laboratory and Additional Data [...] follow. Jalyn Mercer RDN, LD Dietitian's Office [phone] Images from the original note were not included. Podiatry Inpatient progress note 08/10/2023 Quyen Franco, RODRIGUE [facility] Patient Name: Carmen Gilman. . [...] patient stay until Tuesday before discharging to [facility]. Subjective: Patient seen in his room, lying [...] Rolling: Modified independent, Head of bed flat Quality Controller: bedrails Skilled Intervention Provided: monitoring patient response [...] information Prior Level of Function Level of [place] - Transfers/Ambulation/Mobility: Independent with functional transfers, Independent with household ambulation Level of [place] - ADLs: Independent For complete objective data, [...] Carmen Gilman Admit Date: [id number] MR #: [id number] : 1965 Physicians: Ani Worley, PACKAGE LINE RELIEF OPERATOR (Family); No ref. provider found (Referring) Assessment: Patient with 1. Right lower extremity nonhealing wound 2. Right Knee abscess, with suspicion for prosthetic right knee infection. 3. Chronic hepatitis C,(treated at [facility], and negative hepatitis C RNA.) 4. [...] post skin graft. Continue dressing as per benzene worker recommendation. We will continue to follow with [...] mg, 10 mg, Oral, Q4H PRN, Moncho Joqauin MD, 10 mg at 08/09/23 1405 pantoprazole [...] knee with drainage, and wound. Area dressed. AUDIO PRODUCTION ENGINEER: Awake, and Ox3, Wound: Ulceration of the [...] extremity subcutaneous tissues, which could represent cellulitis. [facility] Workstation ID: [id number] Laboratory and Additional Data [...] Discharge Plan Status: Per [facility]. Sandra in [facility], pt will likely be ready for discharge in a day or two. Kelsey working on precert to try and skill pt on return. CM to follow. Images from the original note were not included. Podiatry Inpatient progress note 08/09/2023 Quyen Franco CNP [facility] Patient Name: Carmen Gilman. . [...] help care for your patient. Quyen Franco [facility] Assessment and Plan Carmen Gilman [...] and esophageal varices, pancytopenia, presented to [facility] due to wounds in the lower [...] Carmen Gilman Admit Date: [id number] MR #: [id number] : 1965 Physicians: Ani Worley, RODRIGUE (Family); No ref. provider found (Referring) Assessment: Patient with 1. Right lower extremity nonhealing wound 2. Right Knee abscess, with suspicion for prosthetic right knee infection. 3. Chronic hepatitis C,(treated at [facility], and negative hepatitis C RNA.) 4. [...] post skin graft. Continue dressing as per benzene worker recommendation. We will continue to follow with [...] PRN, Dee Carnes, RODRIGUE, 5 mg at 08/07/23 2111 meloxicam (MOBIC) [...] knee with drainage, and wound. Area dressed. AUDIO PRODUCTION ENGINEER: Awake, and Ox3, depressed leuk Wound: Ulceration [...] meaning can be extrapolated by contextual derivation. [facility] [place] Assessment and Plan Carmen Gilman [...] and esophageal varices, pancytopenia, presented to [facility] due to wounds in the lower [...] not included. Podiatry Inpatient progress note 08/08/2023 Quyen Franco, [facility] Patient Name: Carmen Cai . Date of : 1965, 58 y.o.. [...] Carmen Gilman Admit Date: [id number] MR #: [id number] : 1965 Physicians: Ani Worley, RODRIGUE (Family); No ref. provider found (Referring) Assessment: Patient with 1. Right lower extremity nonhealing wound 2. Right Knee abscess, with suspicion for prosthetic right knee infection. 3. Chronic hepatitis C,(treated at [facility], and negative hepatitis C RNA.) 4. [...] post skin graft. Continue dressing as per benzene worker recommendation. We will continue to follow with [...] knee with drainage, and wound. Area dressed. AUDIO PRODUCTION ENGINEER: Awake, and Ox3 Wound: Ulceration of the [...] extremity subcutaneous tissues, which could represent cellulitis. [facility] Workstation ID: [id number] Laboratory and Additional [...] Note Patient Name: Carmen Gilman MR #: [id number] Date of Service: 08/07/23 Clinician: Harper Arango [...] sodium chloride (PF) 5 mL Intravenous Q8H [facility] Laboratory and Additional Data Reviewed: Laboratory 08/07/23 12:41 PM Microbiology 08/07/23 12:41 PM Pathology 08/07/23 12:41 PM Radiology 08/07/23 12:41 PM Cardiology 08/07/23 12:41 PM Medications 08/07/23 12:41 PM Transcriptions 08/07/23 12:41 PM Results from last 7 days Lab Units 08/06/235 08/05/23 0423 08/04/23 0440 WBC K/mcL 2.72* [...] extremity subcutaneous tissues, which could represent cellulitis. [facility]/s Workstation ID: [id number] Impression and Recommendations Pancytopenia, [...] of : 1965 (58 y.o.) PCP: Ani Worley, RODRIGUE Procedures ASSESSMENT/PLAN: Carmen Gilman 58 y.o. adult [...] 32.55 kg/m Laboratory and Additional Data Reviewed: Reviewed:[id number]} US Abdomen Complete Narrative: EXAMINATION: US ABDOMEN [...] tree is not dilated Workstation ID: [id number] [facility] [place]GRESS [place] Assessment and Plan Carmen Gilman [...] hypertension and esophageal varices, pancytopenia, presented to [facility] due to wounds in the lower [...] Carmen Gilman Admit Date: [id number] MR #: [id number] : 1965 Physicians: Ani Worley, PACKAGE LINE RELIEF OPERATOR (Family); No ref. provider found (Referring) Assessment: Patient with 1. Right lower extremity nonhealing wound 2. Right Knee abscess, with suspicion for prosthetic right knee infection. 3. Chronic hepatitis C,(treated at [facility], and negative hepatitis C RNA.) 4. [...] evaluation recommended. Scheduling for skin graft. Follow-up benzene worker evaluation, Continue dressing as per benzene worker recommendation. We will continue to follow with you. I reviewed deep right knee wound culture with no growth I discussed with the benzene worker, Dr. Gonzales, scheduling for skin graft. Addendum. [...] capsule 500 mg, 500 mg, Oral, Q6H CASSIUS, Kinza Garrett MD, 500 mg at 08/06/23 [...] Garrett MD, 1 tablet at 08/06/23 1022 PMH/PSH/SH/FH reviewed, no change : Review of [...] knee with drainage, and wound. Area dressed. AUDIO PRODUCTION ENGINEER: Awake, and Ox3 Wound: Ulceration of the [...] extremity subcutaneous tissues, which could represent cellulitis. [employer] Workstation ID: [id number] US Abdomen Complete (Results [...] 32.55 kg/m Laboratory and Additional Data Reviewed: Reviewed:[id number]} CT Knee Right With Contrast Narrative: EXAMINATION: [...] extremity subcutaneous tissues, which could represent cellulitis. [facility] Workstation ID: [id number] [facility] PROGRESS [place] Assessment and Plan Carmen Gilman [...] and esophageal varices, pancytopenia, presented to [facility] due to wounds in the lower [...] Carmen Gilman Admit Date: [id number] MR #: [id number] : 1965 Physicians: Ani Worley PACKAGE LINE RELIEF OPERATOR (Family); No ref. provider found (Referring) Assessment: Patient with 1. Right lower extremity nonhealing wound 2. Right Knee abscess, with suspicion for prosthetic right knee infection. 3. Chronic hepatitis C,(treated at [facility], and negative hepatitis C RNA.) 4. [...] evaluation recommended. Scheduling for skin graft. Follow-up benzene worker evaluation, Continue dressing as per benzene worker recommendation. We will continue to follow with you. I reviewed deep right knee wound culture with no growth I discussed with the benzene worker, Dr. Gonzales, scheduling for skin graft. Addendum. [...] Joaquin MD, 2 puff at 07/31/23 0932 [OCT Hold] aspirin EC tablet 81 mg, 81 mg, Oral, Daily, Moncho Joaquin MD, 81 mg at 08/04/23 0920 [OCT Hold] cephALEXin (KEFLEX) capsule 500 mg, 500 mg, Oral, Q6H CASSIUS, Kinza Garrett MD, 500 mg at 08/05/23 0403 [OCT Hold] diazePAM (VALIUM) tablet 5 mg, 5 mg, Oral, Daily PRN, Moncho Joaquin MD, 5 mg at 08/05/23 1009 [OCT Hold] diltiazem (CARDIZEM CD) 24 hr capsule 240 mg, 240 mg, Oral, Daily, Moncho Joaquin MD, 240 mg at 08/04/23 0920 [MAR Hold] gabapentin (NEURONTIN) capsule 400 mg, 400 mg, Oral, 4x daily, Moncho Joaquin MD, 400 mg at 08/04/23 2012 [MAR Hold] heparin (porcine) injection 5,000 Units, 5,000 Units, Subcutaneous, Q8H CASSIUS, Moncho Joaquin MD, 5,000 Units at 07/31/23 0454 [MAR Hold] insulin lispro (AdmeLOG,HumaLOG) injection 0-15 Units, 0-15 Units, Subcutaneous, at bedtime, Moncho Joaquin MD [MAR Hold] insulin lispro (AdmeLOG,HumaLOG) injection 0-30 Units, 0-30 Units, Subcutaneous, TID AC, Moncho Joaquin MD, 0 Units at 08/03/23 1630 [MAR Hold] ipratropium-albuteroL (DUO-NEB) 0.5-2.5 mg/3 ml nebulizer solution 3 mL, 3 mL, Inhalation, Q4H PRN, Moncho Joaquin MD [MAR Hold] iron sucrose (VENOFER) 300 mg in sodium chloride 0.9% (NS) 250 mL IVPB, 300 mg, Intravenous, Once, Harper Arango MD [MAR Hold] lidocaine 1% (PF) (XYLOCAINE-MPF) 10 mg/mL (1 %) injection 1 mL, 1 mL, Injection, Once PRN, Cecilia Gonzales, YURIDIA [MAR Hold] melatonin Tab 5 mg, 5 mg, Oral, Nightly PRN, Dee Carnes, RODRIGUE, 5 mg at 08/04/23 2259 [MAR Hold] meloxicam (MOBIC) tablet 15 mg, 15 mg, Oral, Daily, Moncho Joaquin MD, 15 mg at 08/04/23 0920 [MAR Hold] mometasone-formoterol (DULERA) 200-5 mcg/actuation inhaler 2 puff, 2 puff, Inhalation, BID, Moncho Joaquin MD, 2 puff at 08/04/23 0922 [MAR Hold] ondansetron (ZOFRAN-ODT) disintegrating tablet 4 mg, [...] Saline lock IV, , , Continuous AND [MAR Hold] sodium chloride (PF) (NS) [...] CASSIUS, Kinza Garrett MD, 1 tablet at 08/04/232011 Facility-Administered Medications Ordered in Other Encounters: dexAMETHasone (DECADRON) injection, , Intravenous, PRN, Maury Lu CRNA, 4 mg at 08/05/23 1630 fentaNYL (SUBLIMAZE) injection, , Intravenous, PRN, Maury Lu CRNA, 50 mcg at 08/05/23 1703 lidocaine 20 mg/mL (2 %) injection, , Intravenous, PRN, Lu, Maury Luke, CORRESPONDENCE CLERK, 100 mg at 08/05/23 1627 midazolam (VERSED) injection, , Intravenous, PRN, Lu, Maury Luke, CORRESPONDENCE CLERK, 2 mg at 08/05/23 1624 ondansetron (ZOFRAN) injection, , Intravenous, PRN, Lu, Maury Luke, CORRESPONDENCE CLERK, 4 mg at 08/05/23 1630 propofoL (DIPRIVAN) injection, , Intravenous, PRN, Lu, Maury Luke, CORRESPONDENCE CLERK, 40 mg at 08/05/23 1703 sodium chloride 0.9% (NS), , Intravenous, Continuous PRN, Lu, Maury Luke, CORRESPONDENCE CLERK, New Bag at 08/05/23 1623 PMH/PSH/SH/ reviewed, no change : Review of [...] excoriations Musculoskeletal: No joint swelling, non tender AUDIO PRODUCTION ENGINEER: Awake, and Ox3 Wound: Ulceration of the [...] extremity subcutaneous tissues, which could represent cellulitis. [facility] [employer] Workstation ID: [id number] US Abdomen Complete (Results [...] meaning can be extrapolated by contextual derivation. [facility] [place]ESS [place] Assessment and Plan Carmen Gilman [...] and esophageal varices, pancytopenia, presented to [facility] due to wounds in the lower [...] needed while in-house. Tyesha Cohen RDN, Office [phone] Images from the original note were not included. Patient Name: Carmen Gilman Admit Date: [id number] MR #: [id number] : 1965 Physicians: Ani Worley, PACKAGE LINE RELIEF OPERATOR (Family); No ref. provider found (Referring) Assessment: Patient with 1. Right lower extremity nonhealing wound 2. Right Knee abscess, with suspicion for prosthetic right knee infection. 3. Chronic hepatitis C,(treated at [facility], and negative hepatitis C RNA.) 4. [...] evaluation recommended. Scheduling for skin graft. Follow-up benzene worker evaluation, Continue dressing as per benzene worker recommendation. We will continue to follow with [...] capsule 500 mg, 500 mg, Oral, Q6H CASSIUS, Kinza Garrett MD, 500 mg at 08/04/23 [...] 5 mg, Oral, Nightly PRN, Dee Carnes, RODRIGUE meloxicam (MOBIC) tablet 15 mg, 15 mg, [...] Garrett MD, 1 tablet at 08/04/23 0920 PMH/PSH/SH/ reviewed, no change : Review of [...] excoriations Musculoskeletal: No joint swelling, non tender AUDIO PRODUCTION ENGINEER: Awake, and Ox3 Wound: Ulceration of the [...] extremity subcutaneous tissues, which could represent cellulitis. [facility] Workstation ID: [id number] Laboratory and Additional Data [...] Podiatry Inpatient progress note 08/04/2023 Quyen Franco, PACKAGE LINE RELIEF OPERATOR [facility] Patient Name: Carmen Gilman. . [...] help care for your patient. Quyen Franco [facility] PROGRESS [place] Assessment and Plan Carmen Gilman [...] and esophageal varices, pancytopenia, presented to [facility] due to wounds in the lower [...] Carmen Gilman Admit Date: [id number] MR #: [id number] : 1965 Physicians: Ani Worley, RODRIGUE (Family); No ref. provider found (Referring) Assessment: Patient with 1. Right lower extremity nonhealing wound 2. Right Knee abscess, with suspicion for prosthetic right knee infection. 3. Chronic hepatitis C,(treated at [facility], and negative hepatitis C RNA.) 4. [...] Podiatry evaluation recommended. Continue dressing as per benzene worker recommendation. We will continue to follow with [...] 5 mg, 5 mg, Oral, Daily, Moncho Joaqiun MD, 5 mg at 08/03/23 0847 Saline [...] excoriations Musculoskeletal: No joint swelling, non tender AUDIO PRODUCTION ENGINEER: Awake, and Ox3 Wound: Ulceration of the [...] extremity subcutaneous tissues, which could represent cellulitis. [facility] [employer] Workstation ID: [id number] Laboratory and Additional Data [...] as tolerated General Rehab Precautions: Fall risk (WBAT but minimal. Emphasize elevation of BLEs per podiatry. Wound vac) Balance Bed Mobility Transfers Sit to Stand: Stand by assist Quality Controller: wheeled walker, BUE Skilled Intervention Provided: verbal [...] information Prior Level of Function Level of [place] - Transfers/Ambulation/Mobility: Independent with functional transfers, Independent with household ambulation Level of [place] - ADLs: Independent For complete objective data, detailed plan of care and patient education refer to: PT Evaluation flowsheet, PT Evaluation and Treatment flowsheet, PT Treatment flowsheet, patient Plan of Care, Plan of Care progress note, and Patient Education. This note stands as the current Discharge Summary upon patient discharge from the hospital or completion of Physical Therapy Plan of Care. [facility] [place]GRESS [facility] Assessment and Plan Carmen Gilman [...] and esophageal varices, pancytopenia, presented to [facility] due to wounds in the lower [...] and pt states plan is back to [place] at discharge. Pt does state concerns with COVID at [place]. Pt encouraged to let them place line [...] included. Podiatry Inpatient progress note 08/03/2023 Quyen Franco CNP [facility] Patient Name: Carmen Gilman. . [...] in Direct Patient Care: 15 Narrative: This production leader visited the pt., Carmen, while rounding. Visit was brief as Carmen was not feeling well. Introduced self and role. Carmen explained that he had a difficult day and wanted prayer. He led prayer with this production leader and asked for healing. This production leader provided empathetic listening and supportive presence. This production leader provided information about Pastoral Care services and how to contact a production leader. Pastoral Care team will remain available to support patient and family PRN. Images from the original note were not included. Podiatry Inpatient progress note 08/02/2023 Quyen Franco CNP [facility] Patient Name: Carmen Gilman. . [...] piece of Adaptic, 4 x 4 gauze, Kerlix Elevate legs as much as able. No weightbearing restrictions to either foot. Tentatively planning skin grafting with Dr. Gonzlaes this admission to the right leg but [...] as tolerated General Rehab Precautions: Fall risk (WBAT but minimal. Emphasize elevation of BLEs per podiatry. Wound vac) Released to nursing: assist x 1 with ww Bed Mobility Supine to Sit: Modified independent Sit to Supine: Modified independent Skilled Intervention Provided: monitoring patient response with activity For: efficient movement, fall prevention Resulting in: improved performance, improved safety Transfers Sit to Stand: Stand by assist Quality Controller: wheeled walker, BUE Skilled Intervention Provided: monitoring [...] information Prior Level of Function Level of [place] - Transfers/Ambulation/Mobility: Independent with functional transfers, Independent with household ambulation Level of [place] - ADLs: Independent For complete objective data, [...] Carmen Gilman Admit Date: [id number] MR #: [id number] : 1965 Physicians: Ain Worley, PACKAGE LINE RELIEF OPERATOR (Family); No ref. provider found (Referring) Assessment: Patient with 1. Right lower extremity nonhealing wound 2. Right Knee abscess, with suspicion for prosthetic right knee infection. 3. Chronic hepatitis C,(treated at [facility], and negative hepatitis C RNA.) 4. [...] the right knee. Continue dressing as per benzene worker recommendation. We will continue to follow with [...] excoriations Musculoskeletal: No joint swelling, non tender AUDIO PRODUCTION ENGINEER: Awake, and Ox3 Wound: Ulceration of the [...] extremity subcutaneous tissues, which could represent cellulitis. [facility] [employer] Workstation ID: [id number] Laboratory and Additional Data [...] meaning can be extrapolated by contextual derivation. [facility] [place]ESS [facility] Assessment and Plan Carmen Gilman [...] and esophageal varices, pancytopenia, presented to [facility] due to wounds in the lower [...] Carmen Gilman Admit Date: [id number] MR #: [id number] : 1965 Physicians: Ani Worley, PACKAGE LINE RELIEF OPERATOR (Family); No ref. provider found (Referring) Assessment: Patient with 1. Right lower extremity nonhealing wound 2. Right Knee abscess, with suspicion for prosthetic right knee infection. 3. Chronic hepatitis C,(treated at [facility], and negative hepatitis C RNA.) 4. [...] the right knee. Continue dressing as per benzene worker recommendation. We will continue to follow with [...] excoriations Musculoskeletal: No joint swelling, non tender AUDIO PRODUCTION ENGINEER: Awake, and Ox3 Wound: Ulceration of the [...] extremity subcutaneous tissues, which could represent cellulitis. [facility] [employer] Workstation ID: [id number] Laboratory and Additional Data [...] Hypertension Opioid dependence (HCC) Secondary adrenal insufficiency ([facility]) 04/30/2022 left AMA 04/30/22 without treatment Height: [...] follow. Jalyn Mercer RDN, LD Dietitian's Office [phone] [facility] PROGRESS [facility] Assessment and Plan Carmen Gilman [...] and esophageal varices, pancytopenia, presented to [facility] due to wounds in the lower [...] included. Podiatry Inpatient progress note 08/01/2023 Quyen Franco, [facility] Patient Name: Carmen Gilman. . Date [...] aspiration per orthopedic. Thinks the infection will drain out on its own from proximal knee wounds. No new pedal [...] progress note 07/31/2023 Cecilia Gonzales DPM [facility] Patient Name: Carmen Gilman. . [...] to be performed by wound care nursing. \ Right leg wound culture results show no [...] Carmen Gilman Admit Date: [id number] MR #: [id number] : 1965 Physicians: Ani Worley, PACKAGE LINE RELIEF OPERATOR (Family); No ref. provider found (Referring) Assessment: Patient with 1. Right lower extremity nonhealing wound 2. Right Knee abscess, with suspicion for prosthetic right knee infection. 3. Chronic hepatitis C,(treated at [facility], and negative hepatitis C RNA.) 4. [...] the right knee. Continue dressing as per benzene worker recommendation. We will continue to follow with you. Subjective: Patient was reevaluated today, on the bed mattress, was evaluated by [...] injection 5,000 Units, 5,000 Units, Subcutaneous, Q8H [facility], Moncho Joaquin MD, 5,000 Units at [...] IVPB, 1,250 mg, Intravenous, Q12H, Lindsey Zhang, KRYSTAL,PharmD, Last Rate: 250 mL/hr at 07/31/23 1047, 1,250 mg at 07/31/23 1047 PMH/PSH/SH/FH reviewed, no change : Review of [...] excoriations Musculoskeletal: No joint swelling, non tender AUDIO PRODUCTION ENGINEER: Awake, and Ox3 Wound: Ulceration of the [...] extremity subcutaneous tissues, which could represent cellulitis. [facility] Workstation ID: [id number] Laboratory and Additional Data [...] meaning can be extrapolated by contextual derivation. [facility] Assessment and Plan Carmen Gilman [...] and esophageal varices, pancytopenia, presented to [facility] due to wounds in the lower [...] dressing noted Psych: normal mood and affect [facility] PROGRESS [facility] Assessment and Plan Carmen Gilman [...] and esophageal varices, pancytopenia, presented to [facility] due to wounds in the lower [...] and make adjustments as needed. Please use [employer] to call pharmacy or secure chat the [...] 1 Encounters: 07/29/23 108.9 kg (240 lb) [place] body weight: 77.6 kg (171 lb 1.2 oz) Adjusted ideal body weight: 90.1 kg (198 lb 10.3 oz) Patient Tmax (last 24 hours): 99 F Micro: pending Pharmacy Personnel: Lindsey Zhang RPh,PharmD Contact: or Guicho documented in this encounter [facility] 08-11-2023 Hospital course Narrative Images from the original note were not included. [facility] DISCHARGE SUMMARY -- [facility] Carmen Gilman Admitted: 07/29/2023 Discharge Date: [...] and esophageal varices, pancytopenia, presented to [facility] due to wounds in the lower [...] mouth every morning . naloxone 4 mg/actuation [place] Commonly known as: NARCAN Administer 1 spray [...] instructed. Physician(s) Follow Up: Kinza Garrett MD [address] [place] [address] Follow up in 2 week(s) Condition at Discharge: Good Disposition: SNF I reviewed discharge recommendations with the patient in person. Patient instructions, including activity, were given to the patient/family at discharge. On day of discharge I saw Carmen Gilman and spent: > 30 minutes on discharge. Completed by: Christian Porter on 08/11/23, 12:47 PM documented in this encounter [facility] 08-09-2023 Hospital Discharge instructions Quyen Franco [...] clinic as scheduled documented in this encounter [facility] 08-09-2023 Miscellaneous Notes PHYSICAL THERAPY VISIT [...] to: Patient Unavailable secondary to working with nsg. Will follow up as appropriate. Problem: Actual [...] 1965 (58 y.o.) Date of Service: 08/05/2023 [facility]: [id number] Procedure(s): RIGHT LOWER LEG SPLIT THICKNESS SKIN GRAFT Pre-Operative Diagnoses: * Chronic Leg Wound, Right Leg Post-Operative Diagnoses: * Same as Pre-Op Diagnosis Surgeon(s) and Role: * Cecilia Gonzales DPM - Primary Anesthesiologist: Bryson Kelley MD CORRESPONDENCE CLERK: Maury Lu CRNA Mountain Bike Guide: Jeremy Fink RN Scrub Person Relief: Jolanta [...] Bright red 07/29/23 1319 Exposed Structure None 07/29/23 1319 Wound Bed Characteristics Clean;Dry;Intact 08/02/23 2221 Tiffany-wound [...] 08/03/23 0923 Wound Depth (cm) 0.1 cm 08/03/23 0923 Wound Surface Area (cm^2) 97.5 cm^2 08/03/23 0923 Wound Volume (cm^3) 9.75 cm^3 08/03/23 0923 Area % Change -12.9 08/03/23 09 Wound Healing % 51 08/03/23 0923 Wound Progress Improving 08/01/23 1055 State of [...] Odor None 08/05/23 1746 Wound Bed Characteristics [place] 08/04/23 1828 Wound Closure Other (Comment) 08/05/23 1746 Tiffany-wound Assessment [place] 08/05/23 1746 Hemostasis Not applicable 08/05/23 1746 [...] he was awaiting surgery this date. Stated I am having a R skin graft today. Will follow up as appropriate. Problem: Actual [...] ulcer Outcome: Partially Met Short run of seun vieira noted, notifed L Rafita CAR SEAT MAKER. TEDDY wraps applied to BLE at 2340, [...] documentation, and discharge. documented in this encounter [facility] 08-08-2023 Consult note Associated Order (s): IP CONSULT TO ENTEROSTOMAL THERAPY Wound vac [id number] Returned to the wound clinic via surgical staff and placed in the dirty utility for pick up operator. Wound is no longer being managed by the wound care team, wound care to sing off at this time. Re consult if further wound care needs arise. Jessenia Cruz RN, CWCA Associated Order(s): IP CONSULT TO ONCOLOGY Hematology and Oncology Consult Note Patient Name: Carmen Gilman Admit Date: [id number] MR #: [id number] : 1965 Physicians: Ani Worley, PACKAGE LINE RELIEF OPERATOR (Family); No ref. provider found (Referring) [...] Jamar Escobedo MD naloxone (NARCAN) 4 mg/actuation [place] Administer 1 spray into one nostril for [...] mouth daily as needed (benzo wean) . Jamar Escobedo MD oxyCODONE (ROXICODONE) 5 MG immediate release tablet [...] puffs 2 (two) times a day . 1/27/22 Jamar Escobedo MD Physical Exam: Vital Signs: BP 131/81 Pulse [...] PM Transcriptions 08/05/23 12:53 PM Recent Labs 08/03/236 08/04/23 0440 08/05/23 0423 WBC 3.31* 2.30* 2.48* HGB 10.4* 9.4* 9.4* PLT 104* 84* 84* Recent Labs 08/03/236 08/04/23 0440 08/05/23 0423 NA 136 139 [...] 3.0* 2.7* 2.6* No results for input(s): INR, PTT in the last [address] Knee [...] extremity subcutaneous tissues, which could represent cellulitis. [facility] Workstation ID: [id number] PICC Team consulted for [...] placement so we could proceed with a emt intermediate line placement. Patient declined PICC placement stating [...] as tolerated General Rehab Precautions: Fall risk (WBAT but minimal. Emphasize elevation of BLEs per podiatry. Wound vac) Balance Assessment Sitting Balance - Static: Independent, with back unsupported Standing Balance - Static: Stand by assist, with device Quality Controller - Standing Static: wheeled walker Bed Mobility Not assessed Transfers Sit to Stand: Stand by assist Quality Controller: wheeled walker, BUE Gait/Locomotion Gait Assistance: Stand [...] information Prior Level of Function Level of [place] - Transfers/Ambulation/Mobility: Independent with functional transfers, Independent with household ambulation Subjective Impression - Prior Function: uses walker for mobility Past Medical History: Diagnosis Date Anxiety Arrhythmia Arthritis Asthma COPD (chronic obstructive pulmonary disease) ([facility]) Diabetes ([facility]) Hypertension Opioid dependence ([facility]) Secondary adrenal insufficiency ([facility]) 04/30/2022 left AMA 04/30/22 without treatment Past [...] Attention: Attends to quiet environment Hearing Status: [facility] Social Interaction: Irritable, Agitation ADL Grooming: Set-up [...] assist Stand Pivot Transfers: Stand by assist Quality Controller: wheeled walker Additional Assessment Details Pt seated [...] information Prior Level of Function Level of [place] - Transfers/Ambulation/Mobility: Independent with functional transfers, Independent with household ambulation Level of [place] - ADLs: Independent Subjective Impression - Prior Function: Pt is a difficult historian, becomes irritable towards therapists with questions regarding PLOF and refusing to answer. Pt reports he does not have a home at this time and needs to go to a senior living at discharge. Past Medical History: Diagnosis Date Anxiety Arrhythmia Arthritis Asthma COPD (chronic obstructive pulmonary disease) ([facility]) Diabetes (HCC) Hypertension Opioid dependence ([facility]) Secondary adrenal insufficiency ([facility]) 04/30/2022 left AMA 04/30/22 without treatment Past Surgical History: Procedure Laterality Date APPENDECTOMY ARTHROPLASTY KNEE TOTAL ROBOTIC ASSISTED Right 01/08/2020 Procedure: Right Total Knee Replacement Robotic; Surgeon: Sofía Dukes MD; Location: [facility] OR; Service: Ortho-Robotics DEBRIDEMENT WITH WOUND CLOSURE POSS SKIN GRAFT LOWER EXTR Right 06/03/2023 Procedure: RIGHT LATERAL LEG Debridement with VERSAJET; Surgeon: ALEXEY Radford DPM; Location: [facility] OR; Service: Podiatry FOOT SURGERY Left MANDIBLE FRACTURE SURGERY ORTHOPEDIC SURGERY Right knee THORACIC DUCT LIGATION 01/15/2017 THORACIC DUCT LIGATION WOUND VAC Right 06/03/2023 Procedure: APPLICATION WOUND VAC; Surgeon: ALEXEY Radford DPM; Location: [facility] OR; Service: Podiatry For complete objective data, [...] medical readiness Assessment and Background Information: RN HERMANN Assessment: Face to Face with pt for initial transition planning/care coordination assessment. RN HERMANN introduced self and role, pt voices understanding and consents to assessment. Pt is A/Ox4 and answers all questions appropriately at this time. Pt is lying in bed in no distress on room air. Care providers, pharmacy, and demographics verified/updated. Admitting Dx: Foot infection PCP: Meir ARELLANO Specialists: Preferred Pharmacy: [facility] Insurance: [facility] Prescription Benefit: yes, pt states no concerns obtaining/affording meds and is compliant with meds at home. LW/HPOA: does not have LNOK: Ginny Parks, daughter; Johana Graf, daughter Living Arrangements: Pt lives with daughter, Johana, and her boyfriend but states is not really supposed to be staying there. Pt states was sent home from [facility] 'about a week ago'. Pt states is working with Jolanta Schaefer at [facility] to get re-set back up with apartment and Jolanta's number is [phone]. This KELLY MCCRARY spoke with Jolanta and she was under impression that pt was still at SNF. Jolanta said they are working on [facility] apt in [place] or [facility] apt. Transportation: Pt drives self and states no concerns with transportation. DME/HHC/SNF: Pt states no need for further DME. Pt has had HHC in the past but not currently and has been at [facility]. Pt states lost apartment d/t extended SNF stay. Pt states had referral to [facility] but states they cannot help him till he has apt set up. ANA Bryant at [facility] was assisting pt but had told him he will need to re-apply once home in own apt. [facility] was under impression pt was still at SNF. Stella, CME, updated on all and call placed to [facility]. Per [facility], pt came from there this visit and has not been living with daughter. Pt at [facility] and they will take him back at discharge. Treatment team updated. Pt does not smoke cigarettes or drink ETOH. Pt states no concerns with going home at time of dc and states no further questions/concerns/needs. Advised pt to ask for CM if any further question/concerns/needs arise, voices understanding. CM to follow. Pt Goal: Home to new apt that is not set up yet Plan: Back to [facility] until appropriate discharge planning can be set up from their facility Living Arrangements: Family members Support Systems: Family members, shopper insights manager/social media marketer Assistance Needed: none Type of Residence: Private [...] for NPWT dressing application. Wound VAC # [id number] placed. Removed dressing, see details of wound [...] room. Jessenia Cruz RN, CWCA ATTENDING PHYSICIAN [facility] PRIMARY CARE PHYSICIAN ANI WORLEY CNP ADMITTING PHYSICIAN MONCHO JOAQUIN MD CONSULTING PHYSICIAN [facility] HISTORY OF PRESENT ILLNESS Carmen is [...] septic total knee replacement. D 07/31/2023 10:05 [id number] 07/31/2023 11:25 MCB/MODL Associated Order(s): IP CONSULT TO PODIATRY Images from the original note were not included. Podiatry Inpatient Consult Note 07/30/2023 Cecilia Gonzales DPM [facility] Patient Name: Carmen Gilman. . [...] Robotic; Surgeon: Sofía Dukes MD; Location: [facility] [place]; Service: Ortho-Robotics DEBRIDEMENT WITH WOUND CLOSURE POSS [...] Gonzales Patient Name: Carmen Gilman MR #: [id number] : 1965 Physicians: Ani Worley CNP (Family); [...] presented to the wound clinic via his benzene worker, who had noted some drainage from the [...] disease) (HCC) Diabetes (HCC) Hypertension Opioid dependence ([facility]) Secondary adrenal insufficiency ([facility]) 04/30/2022 left AMA 04/30/22 without treatment Past [...] extremity subcutaneous tissues, which could represent cellulitis. [facility] [employer] [employer] [facility] Workstation ID: [id number] Physical Examination: Vital Signs: [...] Get orthopedic evaluation. Continue dressing as per benzene worker recommendation. We will continue to follow with [...] by contextual derivation. documented in this encounter [facility] 07-30-2023 Emergency department Note Repositioned patient Images from the original note were not included. [facility] ED WHIT Note: NAME: Carmen Gilman 58 y.o. CSN: [id number] PCP: Ani Worley CNP History: Chief Complaint: [...] mouth daily . naloxone (NARCAN) 4 mg/actuation [place] Administer 1 spray into one nostril for [...] All other components within normal limits Narrative: [facility] Laboratory Services has implemented the eGFR [...] Procedure Abnormality Status --------- ------ CBC Auto Differential[[id number]] Abnormal Final result Please view results for these tests on the individual orders. LACTIC ACID, PLASMA CT Knee Right With Contrast (Results Pending) MDM: Medical Decision Making Problems Addressed: Wound cellulitis: acute illness or injury Amount and/or Complexity of Data Reviewed Labs: ordered. Decision-making details documented in ED Course. Radiology: ordered. Decision-making details documented in ED Course. ED Course as of 07/29/23 1840 TueJul 29, 2023 1734 CRP: 5.6 [RH] 1734 [...] Casiano CNP ED Advanced Practice Provider [facility] Emergency Department (Please note that portions of this note have been completed with a voice recognition software. Efforts were made to correct any errors, but occasionally words are mis-transcribed.) Uyen Casiano CNP 07/29/231839 Pt presents to ER from wound care for open wound check to R knee, reports wound being for a couple days. Stated drainage from site. documented in this encounter [facility] 07-29-2023 History and physical note [facility] Patient Name: Carmen Gilman : 1965 MR #: [id number] Admit Date: 07/29/2023 Physicians: Ani Worley CNP [...] [facility] Quality Measures DVT [...] mood and affect documented in this encounter [facility] 07-29-2023 History of Present illness Narrative [...] was tolerated well documented in this encounter [facility] 07-29-2023 Instructions Jolanta Jones RN - 07/29/2023 1:57 PM EST 1. Take swab culture of right leg wound done here in the clinic 2. Dakin wet to dry to right leg wound 3. Dry dressing to right knee wound 4. Gavino and dsd to left leg wound documented in this encounter [facility] 07-19-2023 History of Present illness Narrative [...] a skin graft. documented in this encounter [facility] 07-15-2023 History of Present illness Narrative [...] instructions were communicated with patient's nurse at [facility] Debridement Consent obtained? verbal Consent given [...] was tolerated well documented in this encounter [facility] 07-15-2023 Instructions Marisela Marquez RN - 07/15/2023 8:46 AM EST Xeroform to wound bed then saline wet to dry - Right leg Gavino and dsd - Left leg Teddy bilaterally Change Tuesday, Tuesday, tuesday F/u 1 week documented in this encounter [facility] 07-08-2023 Instructions Marisela Marquez RN - 07/08/2023 2:27 PM EST Wound vac on the right (temporary ns moist gauze placed at wound care.) Facility to place npwt today upon patient return. Iodoflex to left medial leg ulcer, secured with 4 x 4 gauze kerlix Teddy. Change Tuesday, Tuesday, tuesday documented in this encounter [facility] 07-08-2023 History of Present illness Narrative Associated Order(s): Wound Debridement Post-Procedure Diagnose(s): Ulcer of left lower extremity with fat layer exposed (HCC) Images from the original note were not included. Podiatry wound clinic VISIT Cecilia Gonzales DPM Patient Name: Carmen Cai . Date of : 1965, 57 y.o.. [...] was tolerated well documented in this encounter [facility] 07-01-2023 Instructions RonitJolanta Estrada RN - 07/01/2023 2:14 PM EST Wet to dry on right and vac is to be applied at facility Iodoflex, 4x4's, kerlix and teddy to be applied on left leg wound. Change at the facility once every other day F/u 1 week documented in this encounter [facility] 07-01-2023 History of Present illness Narrative [...] 57-year-old male coming to wound clinic from [facility] following hospitalization. Patient has been followed repeatedly [...] was tolerated well documented in this encounter [facility] 07-01-2023 History of Present illness Narrative [...] cm 06/17/23913 Wound Depth (cm) 0.1 cm 06/17/2314 Assessment: L medial leg full-thickness ulcer Venous [...] was tolerated well documented in this encounter [facility] 06-17-2023 Instructions Jolanta Jones RN - [...] Tuesday for evaluation documented in this encounter [facility] 06-17-2023 History of Present illness Narrative Images from the original note were not included. Podiatry wound clinic VISIT Quyen Franco CNP Patient Name: Carmen Gilman. . Date of : 1965, 57 y.o.. Gender: male. Author: Quyen Franco Subjective: Patient is a 57-year-old male coming to wound clinic from [facility] following hospitalization. Patient has been followed repeatedly [...] red 06/17/23914 Wound Bed Characteristics Clean;Granulation tissue 06/17/23914 Tiffany-wound Assessment Temperature WNL;Dry;Scaly 06/17/23914 Cleansed Soap and water 06/17/23914 Assessment: L [...] in the future documented in this encounter [facility] 06-12-2023 Evaluation + Plan note Associated Problem(s): Adrenal insufficiency (HCC) Chronic, was seeing endocrinology back in 2021 and diagnosed at that time. Seems he has been on 5 mg prednisone continuously. [facility] 06-12-2023 Miscellaneous Notes Associated Problem(s): Adrenal [...] he understands the risk of further dependence[facility] [...] ascites on exam documented in this encounter [facility] 06-12-2023 Evaluation + Plan note Associated Problem(s): Chronic pain Multifactorial with history of back pain, knee pain, neuropathy. He is on gabapentin which we will continue here. On oxycodone for wounds as well Can also use topical Voltaren, lidocaine patches. 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 Has f/u with ID [facility] 06-12-2023 Evaluation + Plan [...] [facility], will continue at this time. T [facility] 06-12-2023 Evaluation + Plan note Associated Problem(s): Venous stasis dermatitis of both lower extremities Chronic problem, he has both LE wrapped continuously. Left leg swelling has improved but right leg swelling present with history of trauma. Continue Lasix as well. T [facility] 06-12-2023 Evaluation + Plan note Associated Problem(s): COPD (chronic obstructive pulmonary disease) (HCC) Chronic problem likely in setting of nicotine use. He does continue to smoke tobacco. We will continue his home inhalers. He is stable at this time and no signs of acute exacerbation. T [facility] 06-12-2023 Evaluation + Plan note Associated Problem(s): Cirrhosis (HCC) This is a chronic problem, possibly secondary to hepatitis C infection. He is pancytopenic. Last hep C quant was negative. complete blood count reviewed, continued to have leukopenia, anemia and thrombocytopenia. No ascites on exam [facility] 06-12-2023 History of Present illness Narrative Images from the original note were not included. [place] [id number] [place] [address] Readmission: 06/11/23 Carmen Gilman is a 57 [...] week (around 06/18/2023) for Recheck. ____ Carmen D Gilman is a 57 y.o. adult who presents for Chief Complaint Patient presents with Admission H&P HPI This is a 57-year-old male with a history of COPD, hypertension, chronic HF, history of right knee replacement, polysubstance abuse, liver cirrhosis who presents today for readmission to [facility]. He was sent out to [...] states that he is not wanting a CRANE MANAGER to place hs wound vac and demands [...] weekly for 3 weeks. Follow-up with the PACKAGE LINE RELIEF OPERATOR weekly And Dr. Garrett in 3 [...] 30 tablet 0 naloxone (NARCAN) 4 mg/actuation [place] Administer 1 spray into one nostril for [...] this chart may have been created with Kontagent voice recognition software. Occasional wrong-word or sound-like substitutions may have occurred due to inherent limitations of the voice recognition software. Please read the chart carefully and recognize, using context, where the substitutions have occurred. Electronically signed by: Nathan Collins M.D. documented in this encounter [facility] 05-25-2023 Evaluation + Plan note Associated Problem(s): Ulcer of left lower leg (HCC) Present on admission, treated during hospitalization. Likely 2/2 vascular disease. He will see podiatry on 06/03. Continue with dressing changes. [facility] 05-25-2023 Miscellaneous Notes Associated Problem(s): Ulcer [...] to monitor. Patient endorses pain and request Polaris be prescribed however he is high risk [...] discuss this with his PCP. Per [place] laws I am unable to fill [...] ascites on exam documented in this encounter [facility] 05-25-2023 Evaluation + Plan note Associated Problem(s): Plantar ulcer of right foot (HCC) S/p debridement by podiatry on 05/23. Recommend podiatry follow up. Appt schedule on 06/03. Continue with dressing changes. T [facility] 05-25-2023 Evaluation + Plan [...] weak and will work with PT [facility] 05-25-2023 Evaluation + Plan note Associated Problem(s): Venous stasis dermatitis of both lower extremities 2/2 lymphedema. Continue with leg wraps daily and skin care regimen nightly. RLE swelling exacerbated with recent trauma [facility] 05-25-2023 Evaluation + Plan note Associated Problem(s): Atrial fibrillation with rapid ventricular response (HCC) Chronic problem, on cardizem. Mat have been on anticoagulation in the past but likely discontinued with his anemia. Reviewed recent echo which as normal. BP at goal < 140/90. [facility] 05-25-2023 Evaluation + Plan note Associated Problem(s): Thrombocytopenia (HCC) This is a chronic problem, is likely in the setting of his liver cirrhosis history. Last platelets were 95. We will monItor labs weekly. Consider hematology referral if platelets are less than 50. he is not having any active bleeding at this time [facility] 05-25-2023 Evaluation + Plan note Associated Problem(s): COPD (chronic obstructive pulmonary disease) (HCC) Chronic problem likely in setting of nicotine use. He does continue to smoke tobacco. We will continue his home inhalers. He is stable at this time and no signs of acute exacerbation. [facility] 05-25-2023 Evaluation + Plan note [...] to monitor. Patient endorses pain and request Polaris be prescribed however he is high risk for opiate misuse so recommend nonopioid measures. [facility] 05-25-2023 Evaluation + Plan note [...] discuss this with his PCP. Per [place] laws I am unable to fill his Suboxone. Patient at risk for withdrawal symptoms. We will monitor him closely and treat symptoms appropriately. [facility] 05-25-2023 Evaluation + Plan note [...] indication for precautions. No ascites on exam [facility] 05-24-2023 History of Present illness Narrative Images from the original note were not included. [place] [id number] Admission Date 05/23/23 Carmen Gilman is a [...] discuss this with his PCP. Per [place] laws I am unable to fill [...] to monitor. Patient endorses pain and request Polaris be prescribed however he is high risk [...] weeks (around 06/07/2023) for Recheck. ____ Carmen Sb Gilman is a 57 y.o. adult who presents for Chief Complaint Patient presents with Admission H&P HPI This is a 57-year-old male with a history of COPD, hypertension, polysubstance abuse, liver cirrhosis who presents today for admission H&P to [facility]. Of note the patient did present to [facility] 2 months ago however after few days [...] that during the hospitalization he was given Polaris for this and like to know if [...] this chart may have been created with Kontagent voice recognition software. Occasional wrong-word or sound-like substitutions may have occurred due to inherent limitations of the voice recognition software. Please read the chart carefully and recognize, using context, where the substitutions have occurred. Electronically signed by: Nathan Collins M.D. documented in this encounter [facility] 04-26-2023 History of Present illness Narrative To all lower leg wounds, applied Aquacel Ag's and ABD's. To bilateral lower legs, applied triamcinolone, pink unna boots and coban. Pt tolerated well. Cap refill brisk. RLE completed by Vangie Lombardo LPN and LLE completed by Muna Gordillo RN. documented in this encounter [facility] 04-18-2023 History of Present illness Narrative Review [...] to cefadroxil however the patient did not pick up operator the medication and had been off of [...] Unasyn and clindamycin. Discharge on Unsyn to [facility] on 03/22 but then left AMA per [...] (Temporal) Resp 18 Ht 1.831 m (6' 0.1) Wt 104.3 kg (230 lb) SpO2 93% [...] age Patient Teaching: Yes Family Teaching: No [place] Protocol/Time Out Completed under Procedure Documentation PROCEDURE DETAILS: Midline Insertion Procedure Veins evaluated with ultrasound and appropriate vein selected. 1% Lidocaine used to anesthetize insertion site. Using standard sterile technique access was obtained. 3 British, single lumen Midline placed in L Cephalic [...] not applicable 2. Perform timeout. Yes 3. Manager Testing: If enter sterile field, uses sterile gown and gloves, cap, mask/eye protection. N/A 4. Prep site with ChloraPrep for 30 sec minimum (if femoral 120 sec minimum). Yes 5. Sterile technique to drape patient from head to toe. Yes During the procedure, did the clinician 1. Maintain a sterile field. Yes 2. Obtain a qualified underground truck operator IF 3 unsuccessful sticks. (except if [...] [X] Tray table within reach. Lot number: [id number] Expiration Date: 2023-10-20 Arm circumference: 29 cm [...] age Patient Teaching: Yes Family Teaching: No [place] Protocol/Time Out Completed under Procedure Documentation PROCEDURE DETAILS: Midline Insertion Procedure Veins evaluated with ultrasound and appropriate vein selected. 1% Lidocaine used to anesthetize insertion site. Using standard sterile technique access was obtained. 3 British, single lumen Midline placed in L Cephalic [...] not applicable 2. Perform timeout. Yes 3. Manager Testing: If enter sterile field, uses sterile gown and gloves, cap, mask/eye protection. N/A 4. Prep site with ChloraPrep for 30 sec minimum (if femoral 120 sec minimum). Yes 5. Sterile technique to drape patient from head to toe. Yes During the procedure, did the clinician 1. Maintain a sterile field. Yes 2. Obtain a qualified underground truck operator IF 3 unsuccessful sticks. (except if [...] [X] Tray table within reach. Lot number: [id number] Expiration Date: 2023-10-20 Arm circumference: 29 cm [...] due to underlying liver disease -patient seeing tabulating supervisor Dr Dahl -Positive testing for positive platelet antibodies IIB/IIIA, possible ITP -Possible thalassemia, electrophoresis was not performed though according to lab review -reticulocyte percentage 2.2, iron, ferritin, B12 and folate normal in past -patient seeing tabulating supervisor Dr Dahl -Positive testing for positive platelet [...] wound/plantar -Patient saw podiatry Dr. Pelayo in [facility] and then to [facility] with Dr. Bryan; plan shave procedure [...] 04/07 negative Disposition -Needs place to live, SW consult 21 min of total care RTC 10 days Nathan Hayden MD Please note Portions of this note utilized Kontagent dictation software, please excuse any typographical or grammatical errors. documented in this encounter [facility] 04-07-2023 History of Present illness Narrative Review [...] to cefadroxil however the patient did not pick up operator the medication and had been off of [...] Unasyn and clindamycin. Discharge on Unsyn to [facility] on 03/22 but then left AMA per [...] (Temporal) Resp 18 Ht 1.831 m (6' 0.1) Wt 104.8 kg (231 lb) SpO2 97% [...] age Patient Teaching: Yes Family Teaching: No [place] Protocol/Time Out Completed under Procedure Documentation PROCEDURE DETAILS: Midline Insertion Procedure Veins evaluated with ultrasound and appropriate vein selected. 1% Lidocaine used to anesthetize insertion site. Using standard sterile technique access was obtained. 3 British, single lumen Midline placed in L Cephalic [...] not applicable 2. Perform timeout. Yes 3. Manager Testing: If enter sterile field, uses sterile gown and gloves, cap, mask/eye protection. N/A 4. Prep site with ChloraPrep for 30 sec minimum (if femoral 120 sec minimum). Yes 5. Sterile technique to drape patient from head to toe. Yes During the procedure, did the clinician 1. Maintain a sterile field. Yes 2. Obtain a qualified underground truck operator IF 3 unsuccessful sticks. (except if [...] [X] Tray table within reach. Lot number: [id number] Expiration Date: 2023-10-20 Arm circumference: 29 cm [...] age Patient Teaching: Yes Family Teaching: No [place] Protocol/Time Out Completed under Procedure Documentation PROCEDURE DETAILS: Midline Insertion Procedure Veins evaluated with ultrasound and appropriate vein selected. 1% Lidocaine used to anesthetize insertion site. Using standard sterile technique access was obtained. 3 British, single lumen Midline placed in L Cephalic [...] not applicable 2. Perform timeout. Yes 3. Manager Testing: If enter sterile field, uses sterile gown and gloves, cap, mask/eye protection. N/A 4. Prep site with ChloraPrep for 30 sec minimum (if femoral 120 sec minimum). Yes 5. Sterile technique to drape patient from head to toe. Yes During the procedure, did the clinician 1. Maintain a sterile field. Yes 2. Obtain a qualified underground truck operator IF 3 unsuccessful sticks. (except if [...] [X] Tray table within reach. Lot number: [id number] Expiration Date: 2023-10-20 Arm circumference: 29 cm [...] due to underlying liver disease -patient seeing tabulating supervisor Dr Dahl -Positive testing for positive platelet antibodies IIB/IIIA, possible ITP -Possible thalassemia, electrophoresis was not performed though according to lab review -reticulocyte percentage 2.2, iron, ferritin, B12 and folate normal in past -patient seeing tabulating supervisor Dr Dahl -Positive testing for positive platelet [...] deformities -Patient saw podiatry Dr. Pelayo in [facility] and then to [facility] with Dr. Bryan; plan shave procedure [...] Please note Portions of this note utilized [employer] software, please excuse any typographical or grammatical errors. documented in this encounter [facility] 04-07-2023 Miscellaneous Notes Addended by: RESHMA GOODRICH on: 04/07/2023 12:13 PM Modules accepted: Orders documented in this encounter [facility] 04-07-2023 Note Addended by: RESHMA CHANEL on: 04/07/2023 12:13 PM Modules accepted: Orders [facility] 03-31-2023 History of Present illness Narrative Review [...] to cefadroxil however the patient did not pick up operator the medication and had been off of [...] Unasyn and clindamycin. Discharge on Unsyn to [place] on 03/22 but then left AMA per [...] age Patient Teaching: Yes Family Teaching: No [facility] Protocol/Time Out Completed under Procedure Documentation PROCEDURE DETAILS: Midline Insertion Procedure Veins evaluated with ultrasound and appropriate vein selected. 1% Lidocaine used to anesthetize insertion site. Using standard sterile technique access was obtained. 3 British, single lumen Midline placed in L Cephalic [...] not applicable 2. Perform timeout. Yes 3. Manager Testing: If enter sterile field, uses sterile gown and gloves, cap, mask/eye protection. N/A 4. Prep site with ChloraPrep for 30 sec minimum (if femoral 120 sec minimum). Yes 5. Sterile technique to drape patient from head to toe. Yes During the procedure, did the clinician 1. Maintain a sterile field. Yes 2. Obtain a qualified underground truck operator IF 3 unsuccessful sticks. (except if [...] [X] Tray table within reach. Lot number: [id number] Expiration Date: 2023-10-20 Arm circumference: 29 cm [...] age Patient Teaching: Yes Family Teaching: No [facility] Protocol/Time Out Completed under Procedure Documentation PROCEDURE DETAILS: Midline Insertion Procedure Veins evaluated with ultrasound and appropriate vein selected. 1% Lidocaine used to anesthetize insertion site. Using standard sterile technique access was obtained. 3 British, single lumen Midline placed in L Cephalic [...] not applicable 2. Perform timeout. Yes 3. Manager Testing: If enter sterile field, uses sterile gown and gloves, cap, mask/eye protection. N/A 4. Prep site with ChloraPrep for 30 sec minimum (if femoral 120 sec minimum). Yes 5. Sterile technique to drape patient from head to toe. Yes During the procedure, did the clinician 1. Maintain a sterile field. Yes 2. Obtain a qualified underground truck operator IF 3 unsuccessful sticks. (except if [...] member that counted wires and sharps : Dee, RN. [X] Call light in reach. [X] Bed low and locked. [X] Tray table within reach. Lot number: [id number] Expiration Date: 2023-10-20 Arm circumference: 29 cm [...] due to underlying liver disease -patient seeing tabulating supervisor Dr Dahl -Positive testing for positive platelet antibodies IIB/IIIA, possible ITP -Possible thalassemia, electrophoresis was not performed though according to lab review -reticulocyte percentage 2.2, iron, ferritin, B12 and folate normal in past -patient seeing tabulating supervisor Dr Dahl -Positive testing for positive platelet [...] deformities -Patient saw podiatry Dr. Pelayo in [facility] and then to [facility] with Dr. Bryan; plan shave procedure [...] Please note Portions of this note utilized [employer] dictation software, please excuse any typographical or grammatical errors. documented in this encounter [facility] 03-24-2023 Evaluation + Plan note Associated Problem(s): [...] as well as treatment of IV antibiotics. [facility] 03-24-2023 Miscellaneous Notes Associated Problem(s): Cellulitis [...] Hayden, infectious disease. documented in this encounter [facility] 03-24-2023 Evaluation + Plan note Associated [...] is monitored if leaving at all times. [facility] 03-24-2023 Evaluation + Plan note Associated Problem(s): Nondependent cocaine abuse (HCC) Hospital chart reviewed. His urine drug screen did have cocaine, benzodiazepines as well as buprenorphine [facility] 03-24-2023 Evaluation + Plan note Associated [...] day for now as well. Will reassess. [facility] 03-24-2023 Evaluation + Plan note Associated Problem(s): Essential hypertension This is a chronic problem, currently controlled. Continue medications. Blood pressure goal less than 140/90. T [facility] 03-24-2023 Evaluation + Plan note Associated Problem(s): COPD (chronic obstructive pulmonary disease) (HCC) Chronic problem likely in setting of nicotine use. He does continue to smoke tobacco. Reviewed his chart and onto similar inhalers. We will add on albuterol continue Symbicort. Discontinue the glycopyrrolate. Consider adding on Spiriva. T [facility] 03-24-2023 Evaluation + Plan note Associated Problem(s): Chronic respiratory failure (HCC) Chronic, stable. On oxygen via nasal cannula. He does have COPD. Which is currently stable. Continue with oxygen. [facility] 03-24-2023 Evaluation + Plan note Associated Problem(s): Cirrhosis (HCC) This is a chronic problem, possibly secondary to hepatitis C infection. He is pancytopenic. Follows with Dr. Hayden, infectious disease. [facility] 03-23-2023 History of Present illness Narrative Images from the original note were not included. [place] [id number] Carmen Gilman is a 57 y.o. adult [...] cocaine, benzodiazepines as well as buprenorphine Sepsis ([facility]) Secondary to cellulitis. Now resolved. This has [...] antibiotics. No follow-ups on file. ____ Carmen Sb Mukul is a 57 y.o. adult who presents for Chief Complaint Patient presents with H&P Admission HPI This is a 57-year-old male with a history of COPD, acute story failure, hypertension, polysubstance abuse, liver cirrhosis who presents today for admission H&P to [facility]. He was admitted to the [...] left hip Pain of left femur Sepsis (HCC) Abnormal brain CT Bradycardia Cirrhosis (HCC) Cellulitis [...] this chart may have been created with K[employer] voice recognition software. Occasional wrong-word or sound-like substitutions may have occurred due to inherent limitations of the voice recognition software. Please read the chart carefully and recognize, using context, where the substitutions have occurred. Electronically signed by: Nathan Collins M.D. documented in this encounter [facility] 03-22-2023 Nurse Note Report called to nurse at [facility]. [facility] 03-22-2023 Miscellaneous Notes Report called to nurse at [facility]. Midline catheter intact. Telemetry removed. [...] dressing maintained Intervention: Promote/Optimize Nutrition Flowsheets (Taken 03/18/20236) Oral Nutrition Promotion: physical activity promoted rest [...] Heaven Shannon RN Positioning/Transfer Devices: pillows Taken 03/19/2023 194 by Gurinder Holt RN Pressure Reduction Techniques: [...] LLE dressing changed. Melatonin given for insomnia. SOFTWARE SYSTEMS ARCHITECT attempted tx two times this morning, pt declined both stating I haven't had pain meds and I can't do anything without them. Educated pt on importance of getting up [...] Guideline (CPG) Outcome: Ongoing Flowsheets (Taken 03/18/2023 044) Related Risk Factors (Skin Integrity Impairment, Risk/Actual): [...] be discharge to home. Attempted PT eval [phone]. Pt adamantly declining any participation with therapy evaluations until he receives something stronger for pain. Dr. Nelson notified upon entering room, and states plan to place order for medication and nurse also notified. PT to return at a later time as pt agreeable to participate. No services rendered at this time. Kayla Atwood PT, DPT 03/17/2023 Order received. Initiated evaluation from [phone] for interview portion of evaluation. Pt's speech [...] participating with therapies until he has something stronger for his pain. Dr. Nelson notified upon [...] light in reach. documented in this encounter [facility] 03-22-2023 Nurse Note Midline catheter intact. Telemetry removed. Prescriptions sent with transport in envelope. Discharged. T [facility] 03-22-2023 Hospital course Narrative Discharge Summary Summary [...] Hayden following- unasyn x 14 days at [place] Drug abuse- drug screen + cocaine/benzo/buprren- home [...] resp. rate 19, height 1.829 m (6' 0.01), weight 104.3 kg (230 lb), SpO2 94 %. O2 Sat (%): 94 % (08/01 1125) O2 Device: room air (03/22 1125) [...] diet as tolerated. Discharge Follow-up: Ani Worley APRN-RODRIGUE [address] [place] [id number] Follow up in 1 week(s) Nathan Hayden MD [address] [facility] [address] Follow up in 1 week(s) Discharge Disposition: Patient will be discharged to [facility] in stable condition. Discharge Time: Including assessment, planning, and medication reconciliation was 9 minutes Jolanta Crook CNP completing Discharge Summary for Dr. Omar Please note portions of this note utilized Darius dictation software, please excuse any typographical or [...] spent 34 min documented in this encounter [facility] 03-22-2023 History of Present illness Narrative Images [...] to cefadroxil however the patient did not pick up operator the medication and had been off of [...] issues or concerns today. Pending transfer to [facility]. Legs dressed bilaterally ROS A complete [...] 8 mg, Sublingual, Daily, Jolanta K Sgambellone, MODELING AGENT-PACKAGE LINE RELIEF OPERATOR, 8 mg at 03/22/23 0755 collagenase (SANTYL) ointment 1 Application, 1 Application, Topical, Daily, Power Nelson MD, 1 Application at 03/21/23 0835 Docusate (COLACE) capsule 100 mg, 100 mg, Oral, Q12H, Nestor Alonzo MD, 100 mg at 03/22/23 0755 Enoxaparin Sodium (LOVENOX) injection 40 mg, 40 mg, Subcutaneous, QHS, Isabel Tang CNP, 40 mg at 03/21/23 210 Fluticasone-Salmeterol (ADVAIR HFA) 115-21 MCG/ACT inhaler 2 puff, 2 puff, Inhalation, BID, Isabel Tang CNP, 2 puff at 03/21/23 0717 furOSEmide (LASIX) tablet 40 mg, 40 mg, Oral, Daily, Jolanta K Bayellone, MODELING AGENT-RODRIGUE, 40 mg at 03/22/23 0755 Gabapentin (NEURONTIN) capsule 400 mg, 400 mg, [...] Isabel Tang CNP, 40 mg at 03/22/23 075 Potassium chloride (K-DUR) tablet ER 40 mEq, [...] 186/68 136/55 111/78 Pulse: 95 68 Resp: 18 Temp: 97.5 degrees F (36.4 degrees [...] clear and without evidence of infection, midline 03/21 LAB RESULTS: WBC (WHITE BLOOD COUNT) Date/Time [...] <50 IU/L Final Comment: Testing performed at [place], [place] [address] 03/16/2023 05:53 PM 21 <50 IU/L Final [...] other than and . Testing performed at [facility], [place], [place] [address] CBC Lab Results Component Value Date WBC [...] to Top Result Report CULTURE WOUND (Order #[id number]) on 03/11/23 View [employer] Info CULTURE WOUND (Order #[id number]) on 03/11/23 CULTURE WOUND: Patient Communication Add Comments Not seen Collection Information Specimen ID: [id number] Swab LEG Collected: 03/11/2023 12:23 PM 200 Received: 03/11/2023 12:23 PM Resulting Agency: [facility] - [address] [facility] [address] [facility] [address] Wound culture 02/27 with MSSA Staphylococcus aureus [...] due to underlying liver disease -patient seeing tabulating supervisor Dr Dahl -Positive testing for positive platelet antibodies IIB/IIIA, possible ITP -Possible thalassemia, electrophoresis was not performed though according to lab review -reticulocyte percentage 2.2, iron, ferritin, B12 and folate normal in past -patient seeing tabulating supervisor Dr Dahl -Positive testing for positive platelet [...] deformities -Patient saw podiatry Dr. Pelayo in [place] and then to [facility] with Dr. Bryan; plan shave procedure [...] show reactive adenopathy COPD.RAD -inhalers/BTs Disposition -Pending [facility] in [place] -follow up in infectious disease clinic 7 [...] OTR/L 03/22/2023 Call received from Mini at [facility]. They have received prior auth for Mr [...] resp. rate 19, height 1.829 m (6' 0.01), weight 104.3 kg (230 lb), SpO2 97 [...] ecf auth pending See orders Mini from [facility] here and has met with Mr Gilman. She states they will accept Mr Gilman and have will start prior auth. Updated clinical sent to Mini at [facility]. She states they have not started prior auth yet. BTR has instructed she do an on sight [...] tablet 8 mg 8 mg Sublingual Daily Jolantakevon Crook MODELING AGENT-PACKAGE LINE RELIEF OPERATOR 8 mg at 03/21/23 0833 collagenase [...] 40 mg 40 mg Oral Daily Jolanta K Bayelloreynaldo, MODELING AGENT-PACKAGE LINE RELIEF OPERATOR 40 mg at 03/21/23 0833 Gabapentin [...] 100.0 FL Final No components found for: MEAN CELL HGB IRON Date Value Ref Range Status 03/02/2023 75 49 - 181 UG/DL Final TOTAL IRON BINDING Date Value Ref Range Status 03/02/2023 235 (L) 250 - 450 UG/DL Final FERRITIN Date Value Ref Range Status 03/02/2023 70 17.9 - 464 NG/ML Final VITAMIN B12 Date Value Ref Range Status 03/02/2023 327 239 - 931 PG/ML Final No components found for: FOLIC ACID SODIUM Date Value Ref Range Status 03/21/2023 [...] 5.3 G/DL Final No components found for: PROTEIN TOTAL No components found for: A1C Wt Readings from Last 3 Encounters: 03/16/23 99.8 kg (220 lb) 03/11/23 101.1 kg (222 lb 12.8 oz) 02/27/23 105.3 kg (232 lb 3.2 oz) Ht Readings from Last 3 Encounters: 03/17/23 1.829 m (6' 0.01) 03/11/23 1.829 m (6') 02/27/23 1.829 m [...] and cellulitis of BLE. Estimated needs: Calories: 8267-1839 kcal, (25-30 kcal/kg AdjBW), Protein: 105-130 g [...] fall Subjective Reports This PT approached by adjunct nursing faculty. States patient would like to get up to chair and requests assistance. Cognitive Status Examination Level of Consciousness alert;cooperative Personal Safety and Judgment at risk behaviors demonstrated Objective Therapeutic Interventions Patient sitting EOB upon arrival, requesting to get up to chair. Socks donned by adjunct nursing faculty. He requested height of bed be elevated [...] to cefadroxil however the patient did not pick up operator the medication and had been off of [...] his legs are improving. Pending transfer to [facility]. Midline was ordered already and pending [...] 8 mg, Sublingual, Daily, Jolanta K Sgambellone, MODELING AGENT-PACKAGE LINE RELIEF OPERATOR, 8 mg at 03/21/23 0833 collagenase (SANTYL) ointment 1 Application, 1 Application, Topical, Daily, Power Nelson MD, 1 Application at 03/21/23 0835 Docusate (COLACE) capsule 100 mg, 100 mg, Oral, Q12H, Nestor Alonzo MD, 100 mg at 03/21/23 0832 Enoxaparin Sodium (LOVENOX) injection 40 mg, 40 mg, Subcutaneous, QHS, Isabel Tang CNP, 40 mg at 03/20/23 2045 Fluticasone-Salmeterol (ADVAIR HFA) 115-21 MCG/ACT inhaler 2 puff, 2 puff, Inhalation, BID, Isabel Tang CNP, 2 puff at 03/21/23 0717 furOSEmide (LASIX) tablet 40 mg, 40 mg, Oral, Daily, Jolanta Payan Sgambellone, MODELING AGENT-PACKAGE LINE RELIEF OPERATOR, 40 mg at 03/21/23 0833 Gabapentin [...] 119/68 Pulse: 77 76 71 Resp: 17 18 Temp: 98.5 degrees F (36.9 degrees [...] <50 IU/L Final Comment: Testing performed at [place], [place] [address] 03/16/2023 05:53 PM 21 <50 IU/L Final [...] other than and . Testing performed at [place], [place] [address] CBC Lab Results Component Value Date WBC [...] to Top Result Report CULTURE WOUND (Order #[id number]) on 03/11/23 View [employer] Info CULTURE WOUND (Order #[id number]) on 03/11/23 CULTURE WOUND: Patient Communication Add Comments Not seen Collection Information Specimen ID: [id number] Swab LEG Collected: 03/11/2023 12:23 PM 200 Received: 03/11/2023 12:23 PM Resulting Agency: [facility] - [address] [facility] [address] [facility] [address] Wound culture 02/27 with MSSA Staphylococcus aureus [...] due to underlying liver disease -patient seeing tabulating supervisor Dr Dahl -Positive testing for positive platelet antibodies IIB/IIIA, possible ITP -Possible thalassemia, electrophoresis was not performed though according to lab review -reticulocyte percentage 2.2, iron, ferritin, B12 and folate normal in past -patient seeing tabulating supervisor Dr Dahl -Positive testing for positive platelet [...] deformities -Patient saw podiatry Dr. Pelayo in [facility] and then to [facility] with Dr. Bryan; plan shave procedure [...] -patient states he wishes to go to [facility] in [place] -follow up in infectious disease clinic 7-10 [...] resp. rate 18, height 1.829 m (6' 0.01), weight 104.3 kg (230 lb), SpO2 95 [...] mg 8 mg Sublingual Daily Jolanta K Ambreen MODELING AGENT-RODRIGUE collagenase (SANTYL) ointment 1 Application 1 Application [...] Pressure Injury 03/16/232299 Right;Plantar Foot 03/16/232299 Foot 3 ASSESSMENT & PLAN: Bilateral cellulitis [...] elements of the care plan with the CAR SEAT MAKER and I agree with the findings and [...] to cefadroxil however the patient did not pick up operator the medication and had been off of [...] 8 mg, Sublingual, Daily, Jolanta K Sgambellone, MODELING AGENT-PACKAGE LINE RELIEF OPERATOR, 8 mg at 03/20/23 1007 collagenase [...] 40 mg, 40 mg, Oral, Daily, Jolanta K Sgambellone, MODELING AGENT-PACKAGE LINE RELIEF OPERATOR, 40 mg at 03/20/23 1110 Gabapentin [...] Isabel Tang CNP, 40 mg at 03/20/23 0806 Potassium chloride (K-DUR) tablet ER 40 mEq, [...] other than and . Testing performed at [place], [place] [address] CBC Lab Results Component Value Date WBC [...] to Top Result Report CULTURE WOUND (Order #[id number]) on 03/11/23 [employer] Info CULTURE WOUND (Order #[id number]) on 03/11/23 CULTURE WOUND: Patient Communication Add Comments Not seen Collection Information Specimen ID: [id number] Swab LEG Collected: 03/11/2023 12:23 PM 200 Received: 03/11/2023 12:23 PM Resulting Agency: [address] [address] Wound culture 02/27 with MSSA Staphylococcus aureus [...] due to underlying liver disease -patient seeing tabulating supervisor Dr Dahl -Positive testing for positive platelet antibodies IIB/IIIA, possible ITP -Possible thalassemia, electrophoresis was not performed though according to lab review -reticulocyte percentage 2.2, iron, ferritin, B12 and folate normal in past -patient seeing tabulating supervisor Dr Dahl -Positive testing for positive platelet antibodies IIB/IIIA, possible ITPl Soluble transferrin elevated 27 -White count 2.2, 2.5, 2.6, 2.1 -Hemoglobin 10, 9.9, 9.3, 9.8 -Platelets of 91, 81, 87, 94 -Stably low Obesity -Patient with ongoing efforts to lose weight -BMI 31 Right lower extremity wound/feet& toe deformities -Patient saw podiatry Dr. Pelayo in [facility] and then to [facility] with Dr. Bryan; plan shave procedure [...] -patient states he wishes to go to [facility] and Mary Hayden MD [facility] LOS: 3 days SUBJECTIVE: Patient resting in bed/chair, Denies fever, chills, chest pain or sob. Is eating and drinking well. C/o pain to legs PHYSICAL EXAMINATION: Blood pressure 107/67, pulse 65, temperature 97.7 F (36.5 C), temperature source Oral, resp. rate 18, height 1.829 m (6' 0.01), weight 104.3 kg (230 lb), SpO2 97 [...] Please note Portions of this note utilized [employer] dictation software, please excuse any typographical or grammatical errors. Associated attestation - Power Nelson MD - 03/20/2023 8:47 PM EDT Pt seen and examined on march 19 2023 I have independently interviewed and examined the patient. I have discussed armijo elements of the care plan with the CAR SEAT MAKER and I agree with the findings and [...] to cefadroxil however the patient did not pick up operator the medication and had been off of [...] Patient states he wants to go to [facility]. Patient states right upper extremity IV is [...] QHS, Isabel Tang CNP, 40 mg at 03/18/232146 Fluticasone-Salmeterol (ADVAIR HFA) 115-21 MCG/ACT inhaler 2 [...] other than and . Testing performed at [place], [place] [address] CBC Lab Results Component Value Date WBC [...] to Top Result Report CULTURE WOUND (Order #[id number]) on 03/11/23 [employer] Info CULTURE WOUND (Order #[id number]) on 03/11/23 CULTURE WOUND: Patient Communication Add Comments Not seen Collection Information Specimen ID: [id number] Swab LEG Collected: 03/11/2023 12:23 PM 200 Received: 03/11/2023 12:23 PM Resulting Agency: [facility] [address] [facility] [address] [facility] [address] Wound culture 02/27 with MSSA Staphylococcus aureus [...] due to underlying liver disease -patient seeing tabulating supervisor Dr Dahl -Positive testing for positive platelet antibodies IIB/IIIA, possible ITP -Possible thalassemia, electrophoresis was not performed though according to lab review -reticulocyte percentage 2.2, iron, ferritin, B12 and folate normal in past -patient seeing tabulating supervisor Dr Dahl -Positive testing for positive platelet antibodies IIB/IIIA, possible ITPl Soluble transferrin elevated 27 -White count 2.2, 2.5, 2.6 -Hemoglobin 10, 9.9, 9.3 -Platelets of 91, 81, 87 -Stably low Obesity -Patient with ongoing efforts to lose weight -BMI 31 Right lower extremity wound/feet& toe deformities -Patient saw podiatry Dr. Pelayo in [facility] and then to [facility] with Dr. Bryan; plan shave procedure [...] -patient states he wishes to go to [facility] and [place] Dr. Nathan Hayden MD 03/18/23 1600 Time [...] Rest 8- severe pain Objective Therapeutic Interventions SOFTWARE SYSTEMS ARCHITECT instructed pt in supine to sit EOB, [...] resp. rate 18, height 1.829 m (6' 0.01), weight 104.3 kg (230 lb), SpO2 94 [...] Q12H Nestor Alonzo MD 100 mg at 03/17/23 2000 Enoxaparin Sodium (LOVENOX) injection 40 mg 40 [...] DR 40 mg 40 mg Oral Daily Isable Tang CNP 40 mg at 03/18/23 0847 [...] Pressure Injury 03/16/232299 Right;Plantar Foot 03/16/232299 Foot 1 ASSESSMENT & PLAN: Bilateral cellulitis [...] Please note Portions of this note utilized [employer] dictation software, please excuse any typographical or grammatical errors. Associated attestation - Power Nelson MD - 03/18/2023 7:41 PM EDT I have independently interviewed and examined the patient. I have discussed armijo elements of the care plan with the CAR SEAT MAKER and I agree with the findings and [...] patient, he asks about a referral to [place]. Updated him on where things stand with [facility], he's still agreeable to [facility] at discharge but wants to try [facility] now. Spoke with Mireille at [facility], they do not take patient's insurance. Updated patient who will stick with [facility]. Followed up with [facility]. They are unable [...] to cefadroxil however the patient did not pick up operator the medication and had been off of [...] CALLED TO AND READ BACK BY HARDY HUTCHINSRN AT 0523 KK HEMOGLOBIN (HGB) Date/Time Value Ref Range Status [...] other than and . Testing performed at [facility], [place], [place] [address] CBC Lab Results Component Value Date WBC [...] to Top Result Report CULTURE WOUND (Order #[id number]) on 03/11/23 View Zwittle CULTURE WOUND (Order #[id number]) on 03/11/23 CULTURE WOUND: Patient Communication Add Comments Not seen Collection Information Specimen ID: [id number] Swab LEG Collected: 03/11/2023 12:23 PM 200 Received: 03/11/2023 12:23 PM Resulting Agency: [facility] - [address] [facility] [address] [facility] [address] Wound culture 02/27 with MSSA Staphylococcus aureus [...] due to underlying liver disease -patient seeing tabulating supervisor Dr Dahl -Positive testing for positive platelet antibodies IIB/IIIA, possible ITP -Possible thalassemia, electrophoresis was not performed though according to lab review -White count 2.2, 2.5 -Hemoglobin 10, 9.9 -Platelets of 91, 81 -reticulocyte percentage 2.2, iron, ferritin, B12 and folate normal in past -patient seeing tabulating supervisor Dr Dahl -Positive testing for positive platelet antibodies IIB/IIIA, possible ITPl Soluble transferrin elevated 27 Obesity -Patient with ongoing efforts to lose weight -BMI 31 Right lower extremity wound/feet& toe deformities -Patient saw podiatry Dr. Pelayo in [place] and then to [facility] with Dr. Bryan; plan shave procedure [...] may need debrided Thank you PT/ OT evals faxed with encryption to Gaby at [facility]. 03/17/23 1436 Time In/Out Time In 1405 Time Out 1436 Total Visit Time 31 minutes Total Treatment Time (skilled, billable minutes) 29 minutes + 14 minutes from earlier encounter and interview with pt from [id number]. Split evaluation secondary to pt declining to [...] He states his friend was going to kick him out so he moved out. Reports that he [...] receiving pain medication. Relayed to pt that PACKAGE LINE RELIEF OPERATOR, RN, and physician are all aware [...] > LLE edema Supine to Sit Mobility [place] Level: Supine->Sit stand-by assist Physical Assist: Supine->Sit (1 person assist) Bed Features/Set-up: Supine->Sit Head of bed elevated Sit to Stand Transfer [place] Level: Sit->Stand moderate assist (50% patient effort) [...] less physical assistance. Stand to Sit Transfer [place] Level: Stand->Sit contact guard assist Assistive Device: Stand->Sit gait belt;2 wheeled walker Skilled Rationale Positioning;Sequencing;Hand placement;Verbal cues;Cues for increased safety Functional Mobility [place] Level: Functional Mobility/Gait minimum assist (75% patient [...] tolerance;SOB;Pain;Balance;Don/do ff R sock;Don/doff L sock CURRENT [facility] Daily Activity Inpatient Short Form Putting on/Taking Off Lower Body Clothing 2 - A Lot of Assistance Bathing 2 - A Lot of Assistance Toileting 2 - A Lot of Assistance Putting on/Taking Off Upper Body Clothing 3 - A Little Assistance Grooming 3 - A Little Assistance Eating 4 - No Assistance CURRENT [facility] Activity Raw Score 16 CURRENT AM-[facility] Activity Functional Limitation/Modifier 53.32% Currently Impaired in [...] (range of motion);strengthening;transfer training Discharge Destination Recommendation Prison Facility Barriers to discharge home Patient needs [...] at friends house he was living in. computer networker aware of situation. Previous Level of Function Ambulation Skills independent Assistive Device quad cane;2 wheeled walker Prior Level of Function Details Pt reports he has not been able to take a shower in ~ 6 months. Has utilized quad cane vs FWW with short gait distances as able. PRIOR LEVEL AM-[facility] Basic Mobility Inpatient Short Form Turning over in bed 4 - No Assistance Sitting/standing from chair 4 - No Assistance Moving from lying on back to sitting 4 - No Assistance Moving to and from bed to chair 4 - No Assistance Walk in hospital room 4 - No Assistance Climbing 3-5 steps with a railing 4 - No Assistance PRIOR LEVEL AM-[facility] Mobility Raw Score 24 PRIOR LEVEL AM-[facility] Mobility Functional Limitation/Modifier 0.00% Prior Functional Impairment [...] to conceal chewing tobacco within R hand joint finisher. Pt receptive to hand placement on walker with hand over hand assist for safety Supine to Sit Mobility [place] Level: Supine->Sit stand-by assist Physical Assist: Supine->Sit 1 person + 1 person to manage equipment Bed Features/Set-up: Supine->Sit Head of bed elevated (slightly) Sit to Stand Transfer [place] Level: Sit->Stand (Mod A x 2) Assistive Device: Sit->Stand gait belt;2 wheeled walker Skilled Rationale Positioning;Verbal cues;Hand placement;Full extension to upright positioning/posture;Finding/maint aining midline positioning;Cues for increased safety Stand to Sit Transfer [place] Level: Stand->Sit contact guard assist Physical Assist: Stand->Sit 2 person assist Assistive Device: Stand->Sit gait belt;2 wheeled walker;armed chair Skilled Rationale Positioning;Verbal cues;Hand placement;Controlled descent for sitting Bed-Chair Transfer [place] Level: Bed<->Chair (Mod A x 2 for initial stand; transfer improved to Min-CGA x 2 for remainder of transfer.) Physical Assist: Bed<->Chair 2 person assist Assistive Device: Bed<->Chair gait belt;2 wheeled walker;armed chair Skilled Rationale Positioning;Hand placement;Verbal cues;Full extension to upright positioning/posture Gait Assessment Skilled Intervention/Details - Gait refused gait beyond transfer to chair CURRENT AM-[facility] Basic Mobility Inpatient Short Form Turning [...] a railing 1 - Total Assistance CURRENT [facility] Mobility Raw Score [address] [facility] Mobility Functional Limitation/Modifier 57.70% Currently Impaired in [...] mobility;Reaching difficulty;Difficulty carrying/lifting objects;Limited ability to complete cut off saw tender metal/maintenance;Limited standing tolerance Barriers to Treatment (Co-Morbidities and/or Personal Factors) patient agitation, anemia, BLE cellulits Rehab Potential (PT Eval) good Therapy Frequency 6 times a week (1-2x/day as tolerated) Planned Therapy Interventions balance training;bed mobility training;endurance;functional activity tolerance;gait training;postural re-education;ROM;strengthening;tr ansfer training;stretching;wheelchair management/propulsion training;edema control Discharge Destination Recommendation Prison Facility Barriers to discharge home Patient needs [...] is a 57 yo male presenting to [facility] with BLE edema. PT evaluation completed [...] information faxed with encryption to Gaby at [facility]. Will send PT/ OT evals when available. Spoke with Daria at [facility]. They are no longer providing home health services as patient requested discharge on 03/15/23. Summary: RD Progress Note INITIAL INPATIENT NUTRITION ASSESSMENT Mr. Carmen Gilman is a 57 y.o. male was admitted to [facility] for: No diagnosis found. Nutrition Assessment [...] Last 1 Encounters: 03/17/23 1.829 m (6' 0.01) Wt Readings from Last 15 Encounters: 03/16/23 [...] 09/29/22 101.7 kg (224 lb 3.2 oz) [place] body weight: 77.6 kg (171 lb 1.9 oz) Adjusted ideal body weight: 88.3 kg (194 lb 10.7 oz) Body mass index is 31.19 kg/m . Classified as: Class I Obesity Recent weight loss: No Intake Evaluation: EER: Calories: 5015-2569 kcal (25-30 kcal/kg AdjBW) Protein: 105-130 g (1.2-1.5 g/kg AdjBW) Fluid: 1mL/kcal or per provider choice Current Intakes: No meals documented thus far in flowsheets RD requesting that nursing documented all I/O in flowsheets per hospital policy: Intake & Output (No Intravenous Volume) under Intake Fluid Assessment: Net IO Since Admission: 600 mL [03/17/23 09] 1 L fluid = 1 kg body [...] fluids, and ONS by nursing in flowsheets: Intake & Output (No Intravenous Volume) --> Intake o Document if meal is refused of if patient only took a few bites Meet estimated energy needs through PO intakes or alternative means of nutrition Maintain CBW & prevent weight loss Preserve lean body mass Prevent nutritional deficiencies Maintain electrolyte and fluid balance Patient at moderate nutritional risk. Reassess two times per week. Available by consult. ANETET Huff Registered Dietitian, Licensed Dietitian 03/17/23 Referral received. Chart reviewed. Met with patient to complete readmission assessment. Patient lethargic and difficult to understand, so assessment deferred. Patient reports he is currently living in his vehicle and states will need placement at discharge. His first choice is [facility] and his second choice is [facility]. He begins talking about being in pain and is requesting IV pain medication. Unable to understand anything else patient is attempting to say. Called and spoke with Gaby Laguerre in admissions at [facility]. She is requesting referral information be emailed to her at [email or web address]. Will email referral when needed documentation is available. Will continue to follow. documented in this encounter [facility] 03-22-2023 Progress note Formatting of t his note might be different from the original. Multiple attempts this morning for PT tx, pt declined with reasons being awaiting breakfast and had just received pain medication. Then, just finished OT and wished to eat ice cream. No PT tx rendered [facility] 03-22-2023 Progress note Formatting of t his note might be different from the original. Approached pt for OT treatment but pt currently eating breakfast at this time. Will follow up for OT treatment as pt is available and appropriate. ROSA Moreno, OTR/L 03/22/2023 [facility] 03-21-2023 Nurse Note Assessment unchanged from previous unless otherwise noted. [facility] 03-21-2023 Progress note Formatting of t his note might be different from the original. Patient being assisted back to bed by staff upon PT arrival. States he has been up in chair and requests to rest at this time. Will follow. [facility] 03-21-2023 Hospital Discharge instructions Isabel Tang CNP - 03/21/2023 1:43 PM EDT Unasyn IV per DR Hayden at [facility] The following attachments cannot be sent through Care Everywhere.Pain and Pain Control ([facility]) (Guamanian)documented in this encounter [facility] 03-21-2023 Nurse Note Assessment unchanged from previous unless otherwise noted. [facility] 03-21-2023 Procedure note Associated Ord er(s): PICC LINE PLACEMENT/REMOVAL; PICC LINE PLACEMENT/REMOVAL I have discussed the following issues with the ordering Clinician: Dr. Hayden Procedure explained to patient. Anatomical distortion to interfere with placement:no known restriction Arm preference for venous access: Left Arm Patient is alert, cooperative, no distress, appears stated age Patient Teaching: Yes Family Teaching: No [place] Protocol/Time Out Completed under Procedure Documentation PROCEDURE DETAILS: Midline Insertion Procedure Veins evaluated with ultrasound and appropriate vein selected. 1% Lidocaine used to anesthetize insertion site. Using standard sterile technique access was obtained. 3 British, single lumen Midline placed in L Cephalic [...] not applicable 2. Perform timeout. Yes 3. Manager Testing: If enter sterile field, uses sterile gown and gloves, cap, mask/eye protection. N/A 4. Prep site with ChloraPrep for 30 sec minimum (if femoral 120 sec minimum). Yes 5. Sterile technique to drape patient from head to toe. Yes During the procedure, did the clinician 1. Maintain a sterile field. Yes 2. Obtain a qualified underground truck operator IF 3 unsuccessful sticks. (except if [...] [X] Tray table within reach. Lot number: [id number] Expiration Date: 2023-10-20 Arm circumference: 29 cm Internal length: 11 cm External length: 0 cm [facility] 03-21-2023 Procedure note Associated Ord er(s): PICC LINE PLACEMENT/REMOVAL; PICC LINE PLACEMENT/REMOVAL I have discussed the following issues with the ordering Clinician: Dr. Hayden Procedure explained to patient. Anatomical distortion to interfere with placement:no known restriction Arm preference for venous access: Left Arm Patient is alert, cooperative, no distress, appears stated age Patient Teaching: Yes Family Teaching: No [place] Protocol/Time Out Completed under Procedure Documentation PROCEDURE DETAILS: Midline Insertion Procedure Veins evaluated with ultrasound and appropriate vein selected. 1% Lidocaine used to anesthetize insertion site. Using standard sterile technique access was obtained. 3 British, single lumen Midline placed in L Cephalic [...] not applicable 2. Perform timeout. Yes 3. Manager Testing: If enter sterile field, uses sterile gown and gloves, cap, mask/eye protection. N/A 4. Prep site with ChloraPrep for 30 sec minimum (if femoral 120 sec minimum). Yes 5. Sterile technique to drape patient from head to toe. Yes During the procedure, did the clinician 1. Maintain a sterile field. Yes 2. Obtain a qualified underground truck operator IF 3 unsuccessful sticks. (except if [...] [X] Tray table within reach. Lot number: [id number] Expiration Date: 2023-10-20 Arm circumference: 29 cm Internal length: 11 cm External length: 0 cm documented in this encounter [facility] 03-21-2023 Plan of care note Problem: Skin Integrity Impairment, Risk/Actual (Adult) Goal: Identify Related Risk Factors and Signs and Symptoms Description: Related risk factors and signs and symptoms are identified upon initiation of [employer] Clinical Practice Guideline (CPG) Outcome: Ongoing Flowsheets (Taken 03/18/2023 044) Related Risk Factors (Skin Integrity Impairment, Risk/Actual): [...] encouraged Pressure Reduction Devices: pressure-redistributing mattress utilized [facility] 03-21-2023 Nurse Note Pt appears asleep at this time with no distress noted and unlabored breathing on room air. Call hinkle is in reach. [facility] 03-21-2023 Nurse Note Assessment remains unchanged unless otherwise noted in flow sheet. Pt medicated via MAR for 8/10 leg pain and ATB hung. Ice cream given per request and denies any other needs. Call hinkle is in reach. [facility] 03-20-2023 Nurse Note Pt appears asleep at this time with no distress noted. Unlabored breathing on room air. Dressings appear dry and intact. Call hinkle is in reach. [facility] 03-20-2023 Nurse Note Assessment unchanged from previous assessment by this RN unless otherwise noted in the flowsheet. Patient appears comfortable, no signs of distress. Call light within reach. [facility] 03-20-2023 Nurse Note Assessment unchanged from previous assessment by this RN unless otherwise noted in the flowsheet. Patient appears comfortable, no signs of distress. Call light within reach. [facility] 03-20-2023 Plan of care note Problem: [...] decrease fall risk at discharge. Outcome: Ongoing [facility] [employer] 03-20-2023 Nurse Note Pt resting in bed with eyes closed. Respirations even and non-labored. Assessment without changes. HOB up. Call light in reach. [employer] 03-20-2023 Nurse Note Pt resting in bed with eyes open. Alert and oriented x3. Pt requesting pain medication for bilateral leg and generalized pain. Pt rates pain 8/10 on pain scale. Medicated with Dilaudid as ordered. Assessment unchanged at this time. HOB up. Call light in reach. [facility] 03-19-2023 Nurse Note Pt sitting up in chair at bedside. Assisted to bed at this time. Pt medicated with Dilaudid for c/o pain to BLE. Pt alert and oriented x3. Speech is garbled and difficult to understand. Lung sound clear but diminished. Dressing clean, dry and intact to BLE. Edema remains to BLE. HOB up. Call light in reach. [facility] 03-19-2023 Nurse Note Assessment unchanged from previous assessment by this RN unless otherwise noted in the flowsheet. Patient appears comfortable, no signs of distress. Call light within reach. [facility] 03-19-2023 Nurse Note Assessment unchanged from previous assessment by this RN unless otherwise noted in the flowsheet. Patient appears comfortable, no signs of distress. Call light within reach. [facility] 03-19-2023 Nurse Note Previous assessment unchanged. [facility] 03-19-2023 Plan of care note Problem: [...] decrease fall risk at discharge. Outcome: Ongoing [facility] [facility] 03-19-2023 Nurse Note Previous assessment unchanged. LLE dressing changed. Melatonin given for insomnia. [facility] [employer] [facility] 03-18-2023 Progress note Formatting of t his note might be different from the original. SOFTWARE SYSTEMS ARCHITECT attempted tx two times this morning, pt declined both stating I haven't had pain meds and I can't do anything without them. Educated pt on importance of getting up and participating in strengthening and mobility exercises to get better and stay strong but pt continued to decline tx. No services rendered. Meron Arias PTA [facility] 03-18-2023 Nurse Note Patient refused. Patient not in weigh bed. RN notified [facility] 03-18-2023 Plan of care note Problem: [...] encouraged Pressure Reduction Devices: pressure-redistributing mattress utilized [facility] 03-18-2023 Nurse Note Pt appears asleep at this time with no distress noted. Unlabored breathing on room air. IV infusing at this time and call hinkle is in reach. [facility] 03-18-2023 Nurse Note Assessment remains unchanged unless otherwise noted in flow sheet. Pt medicated for 9/10 leg pain via MAR. IV infusing and call hinkle is in reach. Pt requests a Pepsi and strawberry ice cream. [facility] 03-17-2023 Progress note Formatting of t his note might be different from the original. I certify that this patient requires inpatient services at this time. Plans for post hospitalization care will be discharge to home. [facility] 03-17-2023 History and physical note Chief [...] -- Wound Pressure Injury 03/16/232299 Right;Plantar Foot 07/26/23 2300 Foot less than 1 ASSESSMENT & PLAN: [...] Please note Portions of this note utilized [employer] dictation software, please excuse any typographical or grammatical errors. Associated attestation - Power Nelson MD - 03/17/2023 9:09 PM EDT I have independently interviewed and examined the patient. I have discussed armijo elements of the care plan with the CAR SEAT MAKER and I agree with the findings and care plan as stated above. Time spent performing exam and reviewing diagnostics results, images and labs and discussing care plan with nurse practitioner and consulting physicians was 76 minutes D/w dr alonzo Pt transferred from [facility] to [facility] Failed outpt atbx therapy Dr hayden to see Iv atbx Wound care Pt complaints of pain Heart rrr Lungs clear Abd soft bs+ ascites Legs bilat edemas and wounds See orders [facility] 03-17-2023 History and physical note Chief Complaint: [...] Please note Portions of this note utilized [employer] dictation software, please excuse any typographical or grammatical errors. Associated attestation - Power Nelson MD - 03/17/2023 9:09 PM EDT I have independently interviewed and examined the patient. I have discussed armijo elements of the care plan with the CAR SEAT MAKER and I agree with the findings and care plan as stated above. Time spent performing exam and reviewing diagnostics results, images and labs and discussing care plan with nurse practitioner and consulting physicians was 76 minutes D/w dr alonzo Pt transferred from [facility] to [facility] Failed outpt atbx therapy Dr hayden to see Iv atbx Wound care Pt complaints of pain Heart rrr Lungs clear Abd soft bs+ ascites Legs bilat edemas and wounds See orders documented in this encounter [facility] 03-17-2023 Progress note Formatting of t his note might be different from the original. Attempted PT eval [id number]. Pt adamantly declining any participation with therapy evaluations until he receives something stronger for pain. Dr. Nelson notified upon entering room, and states plan to place order for medication and nurse also notified. PT to return at a later time as pt agreeable to participate. No services rendered at this time. Kayla Atwood PT, DPT 03/17/2023 [facility] 03-17-2023 Progress note Formatting of t his note might be different from the original. Order received. Initiated evaluation from [id number] for interview portion of evaluation. Pt's speech [...] participating with therapies until he has something stronger for his pain. Dr. Nelson notified upon entering room and states will place order and RN notified. Will return again at a later time for evaluation as pt is agreeable for participation. ROSA Cosby, OTR/L 03/17/2023 [facility] 03-17-2023 Consult note Associated Order (s): [...] to cefadroxil however the patient did not pick up operator the medication and had been off of [...] mg, 650 mg, Oral, Q4H PRN, Nestor J Rafael, MD Ampicillin-Sulbactam Sodium (UNASYN) 3 g in [...] 93% 95% Weight: Height: 1.829 m (6' 0.01) Intake/Output Summary (Last 24 hours) at 03/17/2023 [...] BACK BY HARDY HUTCHINS RN AT 0523 [facility] 02/26/2023 09:32 PM 2.9 (L) 3.6 [...] other than and . Testing performed at [place], [place] [address] CBC Lab Results Component Value Date WBC [...] to Top Result Report CULTURE WOUND (Order #[id number]) on 03/11/23 View Smart[employer] Info CULTURE WOUND (Order #[id number]) on 03/11/23 CULTURE WOUND: Patient Communication Add Comments Not seen Collection Information Specimen ID: [id number] Swab LEG Collected: 03/11/2023 12:23 PM 200 Received: 03/11/2023 12:23 PM Resulting Agency: [facility] - [address] [facility] [address] [facility] [place] [address] Wound culture 02/27 with MSSA Staphylococcus aureus [...] due to underlying liver disease -patient seeing tabulating supervisor Dr Dahl -Positive testing for positive platelet antibodies IIB/IIIA, possible ITP -Possible thalassemia, electrophoresis was not performed though according to lab review -White count 2.2 -Hemoglobin 10 -Platelets of 01 -reticulocyte percentage 2.2, iron, ferritin, B12 and folate normal in past -patient seeing tabulating supervisor Dr Nabila -Positive testing for positive platelet antibodies IIB/IIIA, possible ITPl Soluble transferrin elevated 27 Obesity -Patient with ongoing efforts to lose weight -BMI 31 Right lower extremity wound/feet& toe deformities -Patient saw podiatry Dr. Pelayo in [facility] and then to [facility] with Dr. Bryan; plan shave procedure [...] you for this consultation Nathan Hayden MD [facility] 03-17-2023 Consult note Associated Order (s): [...] to cefadroxil however the patient did not pick up operator the medication and had been off of [...] 93% 95% Weight: Height: 1.829 m (6' 0.01) Intake/Output Summary (Last 24 hours) at 03/17/2023 [...] other than and . Testing performed at [place], [place] [address] CBC Lab Results Component Value Date WBC [...] to Top Result Report CULTURE WOUND (Order #[id number]) on 03/11/23 View [employer] Info CULTURE WOUND (Order #[id number]) on 03/11/23 CULTURE WOUND: Patient Communication Add Comments Not seen Collection Information Specimen ID: [id number] Swab LEG Collected: 03/11/2023 12:23 PM 200 Received: 03/11/2023 12:23 PM Resulting Agency: [facility] [address] [facility] [address] [facility] [address] Wound culture 02/27 with MSSA Staphylococcus aureus [...] due to underlying liver disease -patient seeing tabulating supervisor Dr Dahl -Positive testing for positive platelet antibodies IIB/IIIA, possible ITP -Possible thalassemia, electrophoresis was not performed though according to lab review -White count 2.2 -Hemoglobin 10 -Platelets of 01 -reticulocyte percentage 2.2, iron, ferritin, B12 and folate normal in past -patient seeing tabulating supervisor Dr Dahl -Positive testing for positive platelet antibodies IIB/IIIA, possible ITPl Soluble transferrin elevated 27 Obesity -Patient with ongoing efforts to lose weight -BMI 31 Right lower extremity wound/feet& toe deformities -Patient saw podiatry Dr. Pelayo in [facility] and then to [facility] with Dr. Bryan; plan shave procedure [...] Nathan Hayden MD documented in this encounter [facility] 03-17-2023 Plan of care note Problem: Skin [...] outcomes by discharge/transition of care. Outcome: Ongoing [facility] 03-17-2023 Nurse Note Pt resting in bed with eyes closed. Respirations even and non-labored. Assessment without changes. Pillow provided to elevate left leg for comfort as requested. Call light in reach. [facility] 03-17-2023 Nurse Note Pt unable to stand for daily weight and bed does not have scale to weigh patient. [facility] 03-16-2023 Nurse Note Pt resting in [...] painful to touch. Call light in reach. [facility] 03-16-2023 Emergency department Note Transport here to take pt to [place] and gave report to Nolvia doctor of veterinary medicine [facility] 03-16-2023 Emergency department Note Transport here to take pt to [place] and gave report to Nolvia doctor of veterinary medicine [facility] took patient to [place] [facility] [address] [place] [facility] contacted for transfer. Patient will go to room 264. Call [phone] to be forwarded to Deborah. Continuation of Emergency Department Encounter I assumed [...] time there are no beds available at [facility]. I spoke to the patient about the risks and benefits of transfer. He voiced understanding and gave verbal consent. I spoke to the nursing supervisor feed mill who is making arrangements for a bed to [facility]. Dr. Nelson contacted and will care for the patient in the [facility] in [facility]. Transfer paper filled out and placed on chart. I spoke with the nursing supervisor feed mill. As the patient has failed outpatient antibiotic therapy he will meet inpatient criteria. No follow-ups on file. New Prescriptions No medications on file Discontinued Medications No medications on file An after visit summary was printed and given to the patient with the above information. Portions of this chart were created using Kontagent electronic dictation. Please excuse any typographical or [...] trauma or fracture Shai Leonard MD 03/16/23 2967 Pt has been brought back to room 5 at this time documented in this encounter [facility] 03-16-2023 Emergency department Note [place] took patient to [place] [facility] 03-16-2023 Emergency department Note [place] [facility] contacted for transfer. Patient will go to room 264. Call [phone] to be forwarded to Oxly. [facility] 03-16-2023 Physician Emergency department Note Continuation of [...] time there are no beds available at [facility]. I spoke to the patient about the risks and benefits of transfer. He voiced understanding and gave verbal consent. I spoke to the nursing supervisor feed mill who is making arrangements for a bed to [facility]. Dr. Nelson contacted and will care for the patient in the [facility] in [facility]. Transfer paper filled out and placed on chart. I spoke with the nursing supervisor feed mill. As the patient has failed outpatient antibiotic therapy he will meet inpatient criteria. No follow-ups on file. New Prescriptions No medications on file Discontinued Medications No medications on file An after visit summary was printed and given to the patient with the above information. Portions of this chart were created using Kontagent electronic dictation. Please excuse any typographical or grammatical errors contained herein. Nestor Alonzo MD 03/16/232007 [facility] 03-16-2023 Emergency department Note Paged Dr Nelson per Dr Alonzo request [facility] 03-16-2023 Emergency department Note Received report from Aide MENDOZA [facility] 03-16-2023 Emergency department Note US at bedside [facility] 03-16-2023 Physician Emergency department Note Patient was [...] trauma or fracture Shai Leonard MD 03/16/23 7483 [facility] Work Phone: 03-16-2023 Emergency department Note Pt has been brought back to room 5 at this time [facility] 02-26-2023 Emergency department Note Zach MARTE RN (kara) notified. [facility] 02-26-2023 Emergency department Note Zach MARTE RN (kara) notified. Bed assignment #208 [facility], report # [id number], RN notified. [facility] called back with room assignment. Patient will go to room 208. Call [phone] rodríguez for nuno dumont. [facility] contacted for transfer. Will call back with room assignment. Called dr rodríguez for nuno dumont. Left voicemail. Images from the original note were not included. Emergency Department Report [facility] EMERGENCY DEPARTMENT Service Date:.02/26/23 PCP: Ani [...] metal pedal of a workshop bike in [place]. He has not seek care for the wound he states that he took paper towels from a [employer] restaurant and tape gum to his leg. [...] with overfill 565 mL (total volume) IVPB Nnjahtk-Alfphx-Oelow Pertussis (BOOSTRIX) syringe 0.5 mL Bacitracin ointment [...] reviewed patient is accepted for transfer to [facility]. Patient is alert oriented stable at [...] patient with above information. . . Nuno Dumont APRN-RODRIGUE 02/26/23 4557 Patients Daughter Ginny West [phone] notified of admission per patients request. Patient [...] is following Podiatry for Shai Leonard MD 02/26/235 documented in this encounter [facility] 02-26-2023 Emergency department Note [facility], report # [id number], RN notified. [facility] 02-26-2023 Emergency department Note [facility] called back with room assignment. Patient will go to room 208. Call [phone] for report. [facility] 02-26-2023 Emergency department Note Called dr rodríguez for nuno dumont. [facility] 02-26-2023 Emergency department Note [facility] contacted for transfer. Will call back with room assignment. [facility] 02-26-2023 Emergency department Note Called dr rodríguez for nuno dumont. Left voicemail. [facility] 02-26-2023 Physician Emergency department Note Images from the original note were not included. Emergency Department Report [facility] EMERGENCY DEPARTMENT Service Date:.02/26/23 PCP: Ani [...] metal pedal of a workshop bike in [place]. He has not seek care for the wound he states that he took paper towels from a [employer] restaurant and tape gum to his leg. [...] with overfill 565 mL (total volume) IVPB Lxctnoy-Ijvmgs-Hujoa Pertussis (BOOSTRIX) syringe 0.5 mL Bacitracin ointment [...] reviewed patient is accepted for transfer to [facility]. Patient is alert oriented stable at [...] patient with above information. . . Nuno Dumont APRN-RODRIGUE 02/26/23 9705 [facility] 02-26-2023 Emergency department Note Patients Daughter Ginny West [phone] notified of admission per patients request. [facility] 02-26-2023 Physician Emergency department Note Patient was [...] following Podiatry for Shai Leonard MD 02/26/232132 [facility] Work Phone: 02-15-2023 History of Present illness [...] right lower leg - Primary Relevant Orders OR DRESSING CHANGE OR APPLY OF UNNA BOOT Pressure ulcer of right foot, stage 3 Chronic venous insufficiency Relevant Orders OR DRESSING CHANGE OR APPLY OF UNNA BOOT Lymphedema Relevant Orders OR DRESSING CHANGE OR APPLY OF UNNA BOOT At this time, [...] continue with aquacel AG secured with tubi joint finisher. Patient encouraged to elevate BLE often, to [...] and cast padding applied below right knee. [place] unna boot and coban applied to right leg from ankle to knee. To left leg: Double layer tubigrip size F applied. Patient tolerated well and circ check was birsk bilaterally. documented in this encounter [facility] 02-15-2023 Instructions Muna Savage RN - 02/15/2023 1:15 PM EDT Keep unna boot on right leg clean and dry. Keep the tubigrip sock on the left leg clean and dry, may remove to wash leg but put it back on. Call with any questions or concerns. documented in this encounter [facility] 02-10-2023 History of Present illness Narrative Date [...] cuneiform. 2. Infective bursitis. PLAN: I called Marie Ayala, nurse practitioner from [facility], [...] his legs are healing. Continue to let Marie Ayala treat the wounds on the legs. [...] his legs. He will follow up with Marie Ayala in the [facility]ound Center on Tuesday [...] him back in a couple of weeks. (DOC:[id number]) Review of Systems Constitutional: Negative for chills, [...] wear top dentures. documented in this encounter [facility] 02-08-2023 History of Present illness Narrative History [...] right lower leg - Primary Relevant Orders OR DRESSING CHANGE Chronic venous insufficiency Relevant Orders OR DRESSING CHANGE Lymphedema Relevant Orders OR DRESSING CHANGE Pressure ulcer of right foot, stage 3 Foot mass, right Relevant Orders OR DRESSING CHANGE At this time, we will apply triamcinolone cream to BLE, triple helix/medihoney mixture to RLE posterior wound, covering with aquacel extra and ABD, and then wrap patient in BLE unna boots. To right foot nodule/wound, we will apply aquacel AG, ABD, kerlix, and secure with tubi joint finisher. Patient encouraged to elevate BLE often, to [...] Aquacel AG , ABD, Kerlix and tubi joint finisher size F. documented in this encounter [facility] 02-08-2023 Instructions Neptali Canales RN - 02/08/2023 12:45 PM EDT Follow up in one week, keep your unna boots clean and dry, continue to follow up with all your scheduled appointments. Call with any questions or concerns. documented in this encounter [facility] 01-26-2023 History of Present illness Narrative HPI [...] Patient states recent history of admission to [facility] for falls. Patient had CT scan in [...] lower extremity wound and is seeing a benzene worker in [place] with improvement over time reported. Patient [...] Prior appendectomy. 5. Tavera catheter in place. Nixon Workstation ID: [id number] Narrative EXAMINATION: CT CHEST [...] 10.7/ platelets 108, 117, 106 -patient seeing tabulating supervisor Dr Dahl -Positive testing for positive platelet antibodies IIB/IIIA, possible ITP -Possible thalassemia, electrophoresis is pending Obesity -Patient with ongoing efforts to lose weight -BMI 30.4, 31.2, 31.6, 31.4, 29.9 Right lower extremity wound/feet& toe deformities -Patient sees podiatry Dr. Pelayo in [place] -Placed c/s for podiatry pending and seeing [...] to be performed today to rule out AUDIO PRODUCTION ENGINEER event; on follow-up, patient still has not [...] Dr. Nathan Hayden documented in this encounter [facility] 01-25-2023 History of Present illness Narrative History [...] right lower leg - Primary Relevant Orders OR APPLY OF UNNA BOOT OR DRESSING CHANGE Chronic venous insufficiency Relevant Orders OR APPLY OF UNNA BOOT OR DRESSING CHANGE Lymphedema Relevant Orders OR APPLY OF UNNA BOOT OR DRESSING CHANGE Foot mass, right Relevant Orders AMB REFERRAL TO PODIATRY OR APPLY OF UNNA BOOT OR DRESSING CHANGE At this time, we will apply triamcinolone cream to BLE, zinc barrier cream to LLE posterior tiffany wound, applying triple helix and medihoney to wound bed, covering with folded 4x4 and ABD--secured with RLE unna boot. To right arch, we will apply aquacel AG and ABD, securing with tubi joint finisher. Referral will be made to DR. Bryan [...] Aquacel AG , ABD, Kerlix and tubi joint finisher. Referral to Dr Bryan documented in this encounter [facility] 01-25-2023 Instructions Neptali Canales RN - 01/25/2023 2:15 PM EDT licensed acupuncturist your antibiotic today, keep your unna boots clean and dry, follow up with DR Bryan when scheduled for foot wound. documented in this encounter [facility] 01-18-2023 History of Present illness Narrative History [...] right lower leg - Primary Relevant Orders OR DRESSING CHANGE OR APPLY OF UNNA BOOT Chronic venous insufficiency Relevant Orders OR DRESSING CHANGE OR APPLY OF UNNA BOOT Lymphedema At this [...] to debridement of right posterior leg by Marie Ayala CNP with #3 curette. See debridement flow sheet. No graft application this week. Treatment completed by Neptali Burton RN. To right posterior leg wound, applied zinc to tiffany wound, medihoney mixed with triple helix to wound bed, folded 4x4 and ABD. To bilateral lower legs, applied triamcinolone, xeroform and cast padding to below the knees, pink unna boots and coban. Cap refill brisk. Patient tolerated well. documented in this encounter [facility] 01-18-2023 Instructions Neptali Canales RN - 01/18/2023 2:45 PM EDT Keep your unna boots clean and dry. Call the wound clinic with questions or concerns. Keep your lymphedema appointment. documented in this encounter [facility] 01-18-2023 Procedure note Associated Ord er(s): WOUND [...] with the proposed plan, giving informed consent. [place] Protocol required: Yes. [place] Protocol is required. Preprocedure verification is complete [...] treatment: Procedure was tolerated well Complications: None [facility] 01-18-2023 Procedure note Associated Ord er(s): WOUND [...] with the proposed plan, giving informed consent. [place] Protocol required: Yes. [place] Protocol is required. Preprocedure verification is complete [...] well Complications: None documented in this encounter [facility] 12-28-2022 History of Present illness Narrative History [...] right lower leg - Primary Relevant Orders OR APPLY OF UNNA BOOT OR DRESSING CHANGE CULTURE WOUND Chronic venous insufficiency Relevant Orders OR APPLY OF UNNA BOOT OR DRESSING CHANGE CULTURE WOUND Lymphedema Relevant Orders OR APPLY OF UNNA BOOT OR DRESSING CHANGE CULTURE WOUND Fungal dermatitis At [...] Cast padding and xeroform under the knees. [place] unna boots and coban from base of toes to below the knees. Capillary refill brisk. Cetacaine spray to right posterior leg wound prior to selective debridement by Marie Ayala CNP with #3 curette . See debridement flow sheet. Puraply AM 2x4 applied to right leg wound,steri stripped in place, covered with Adaptic touch steri stripped in place. Puraply AM lot [id number] Exp 03/12/2025 documented in this encounter [facility] 12-28-2022 Instructions Neptali Canales RN - 12/28/2022 2:15 PM EDT Keep your unna boots clean and dry., return to the wound clinic in one week. documented in this encounter [facility] 12-28-2022 Procedure note Associated Ord er(s): CELLULAR [...] Tolerated well, no immediate complications Complications: None [facility] 12-28-2022 Procedure note Associated Ord er(s): CELLULAR [...] complications Complications: None documented in this encounter [facility] 12-21-2022 History of Present illness Narrative History [...] right lower leg - Primary Relevant Orders OR DRESSING CHANGE OR APPLY OF UNNA BOOT Chronic venous insufficiency Relevant Orders OR DRESSING CHANGE OR APPLY OF UNNA BOOT Lymphedema Relevant Orders OR DRESSING CHANGE OR APPLY OF UNNA BOOT At this time, [...] leg wound prior to selective debridement by Marie Ayala CNP. #3 curette used, pt tolerated well, see debridement flow sheet. Puraply AM 2x2 applied to right leg wound,steri stripped in place, covered with Adaptic and covered with ABD pad. Cast padding and xeroform under the knees. [place] unna boots and coban from base of toes to below the knees. Puraply AM lot [id number] Exp 02/27/2025 documented in this encounter [facility] 12-21-2022 Instructions Neptali Canales RN - 12/21/2022 1:15 PM EDT Keep your unna boots clean and dry, elevate your legs as tolerated throughout the day, call with concerns. documented in this encounter [facility] 12-21-2022 Procedure note Associated Ord er(s): CELLULAR [...] Tolerated well, no immediate complications Complications: None [facility] 12-21-2022 Procedure note Associated Ord er(s): [...] complications Complications: None documented in this encounter [facility] 12-14-2022 History of Present illness Narrative History [...] right lower leg - Primary Relevant Orders OR DRESSING CHANGE OR APPLY OF UNNA BOOT Chronic venous insufficiency Relevant Orders OR DRESSING CHANGE OR APPLY OF UNNA BOOT Lymphedema Relevant Orders OR DRESSING CHANGE OR APPLY OF UNNA BOOT We will apply [...] Patient tolerated well. documented in this encounter [facility] 12-14-2022 Instructions Neptali Canales RN - 12/14/2022 9:00 AM EDT Keep your unna boots clean and dry, elevate the legs as tolerated throughout the day, call with questions or concerns. documented in this encounter [facility] 12-08-2022 History of Present illness Narrative Review [...] Patient states recent history of admission to [facility] for falls. Patient had CT scan in [...] lower extremity wound and is seeing a benzene worker in [place] with improvement over time reported. Patient [...] Prior appendectomy. 5. Tavera catheter in place. 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 Pelayo in [facility] -Placed c/s for podiatry - seeing wound care and has pneumoboots in place Right hand weakness -No trauma noted, does have notable weak left is extensor, fingers and wrist area -Obtain head CT which was ordered stat however patient has deferred getting tests performed today and wishes to come back different day although I recommended it to be performed today to rule out AUDIO PRODUCTION ENGINEER event; on follow-up, patient still has not gotten testing done and this will be rescheduled -X-ray shows degenerative changes but this likely does not explain his findings or acuity of presentation -Depending on findings, may need referral to neurology versus orthopedics Patient to follow-up within 3-4 weeks, earlier with new issues [address] Nathan Hayden documented in this encounter [facility] 11-30-2022 History of Present illness Narrative The following treatment completed via Vangie CRANE MANAGER triamcinolone 0.1% cream applied to lower legs, foam to ankles. Right leg wound applied zine to tiffany-wound, sorbact, aqucel extra and ABD. Lock[place] unna boots applied to lower legs. Patient voices no concerns or questions at this time. documented in this encounter [facility] 11-30-2022 Instructions Neptali Canales RN - 11/30/2022 1:15 PM EDT Follow up in one week, keep your unna boots clean and dry. Call the wound clinic with questions or concerns. documented in this encounter [facility] 11-25-2022 History of Present illness Narrative Review [...] management. He has also been admitted to [facility] for falls and CT scan in April [...] kg (237 lb) Height: 1.854 m (6' 1) PHYSICAL EXAM: Physical Exam Vitals and nursing [...] Portions of this chart were created using Kontagent electronic dictation. Please excuse any typographical or grammatical errors contained herein as a result. documented in this encounter [facility] 11-25-2022 Instructions Bridget Dahl MD - 11/25/2022 3:00 PM EDT Return Visit in 2 weeks with Labs. documented in this encounter [facility] 11-23-2022 History of Present illness Narrative History [...] right lower leg - Primary Relevant Orders OR DRESSING CHANGE Chronic venous insufficiency Relevant Orders OR DRESSING CHANGE Lymphedema Relevant Orders OR DRESSING CHANGE At this time, we will [...] Visit. Pt educated on Lymphedema pumps per Marie Ayala CNP. The following treatment completed via Monica Santiago LPN triamcinolone 0.1% cream applied to lower legs, foam to ankles. Right leg wound applied zine to tiffany-wound, sorbact, aqucel extra and ABD. [place] unna boots applied to lower legs. Patient voices no concerns or questions at this time. documented in this encounter [facility] 11-23-2022 Instructions Deborah Bell RN - 11/23/2022 1:45 PM EDT Wound center to coordinate Lymphedema. documented in this encounter [facility] 11-16-2022 History of Present illness Narrative History [...] right lower leg - Primary Relevant Orders OR DRESSING CHANGE OR APPLY OF UNNA BOOT Chronic venous insufficiency Relevant Orders OR DRESSING CHANGE OR APPLY OF UNNA BOOT Lymphedema At this [...] Patient tolerated well. documented in this encounter [facility] 11-16-2022 Instructions Neptali Canales RN - 11/16/2022 8:00 AM EDT Follow up in one week, keep your unna boots clean and dry. Call with questions or concerns. documented in this encounter [facility] 11-03-2022 History of Present illness Narrative Review [...] Patient states recent history of admission to [facility] for falls. Patient had CT scan in [...] lower extremity wound and is seeing a benzene worker in [place] with improvement over time reported. Patient [...] Prior appendectomy. 5. Tavera catheter in place. Nixon Workstation ID: [id number] Narrative EXAMINATION: CT CHEST [...] deformities -Patient sees podiatry Dr. Pelayo in [facility] -Placed c/s for podiatry -ongoing edema and would recommend to be banana expert although patient has difficulty getting them on and off and is having difficulty managing his right lower extremity wound. -Recommend wound care center evaluation as well as home nursing service to be placeds 3 times a week to assist with dressing changes as well as tubi banana expert Patient to follow-up within 2-3 weeks [address] Nathan Hayden documented in this encounter [facility] 11-03-2022 Miscellaneous Notes Addended by: RESHMA GOODRICH on: 11/03/2022 09:54 AM Modules accepted: Orders documented in this encounter [facility] 11-03-2022 Note Addended by: RESHMA CHANEL on: 11/03/2022 09:54 AM Modules accepted: Orders [facility] 10-21-2022 Nurse Note Patient's daughter, Jeny, just telephoned in; is 2 minutes from Hospital; instructed on where to pick up operator patient. IV discontinued with angiocath intact; no [...] his eyes again. documented in this encounter [facility] 10-21-2022 Nurse Surgical operation note Patient's daughter, Jeny, just telephoned in; is 2 minutes from Hospital; instructed on where to pick up operator patient. [facility] 10-21-2022 Nurse Surgical operation note IV discontinued with angiocath intact; no redness or edema noted a site; pressure drsg applied to site; patient tolerated procedure well and is getting dressed for discharge home. [facility] 10-21-2022 Nurse Surgical operation note Dr. Suarez here speaking with patient, provides post procedure diagnosis, treatment provided and treatment recommended. [facility] 10-21-2022 Nurse Surgical operation note Patient assisted to sit on side of cart, denies dizziness or lightheaded, call light with patient, side rail up x 1. Educated patient on post anesthesia safety precautions throughout next 24 hours; patient verbalizes understanding. [facility] 10-21-2022 Nurse Surgical operation note Discharge instructions, and AVS, being provided to patient, by Mingo Britton LPN, after this RN reviewed documents. [facility] 10-21-2022 Nurse Surgical operation note Patient's BP has improved, is alert, HOB elevated; patient taking nourishment of diet pepsi and peanut butter crackers; patient denies difficulty swallowing, pain or nausea. [facility] 10-21-2022 Nurse Surgical operation note Patient to recovery bay 4; patient opens eyes to name, denies pain or nausea, then quickly closes his eyes again. [facility] 10-21-2022 Note Formatting of this n ote might be different from the original. See anesthesia record for vitals and medications given. [facility] 10-21-2022 Miscellaneous Notes See anesthesia record for vitals and medications given. documented in this encounter [facility] 09-29-2022 History of Present illness Narrative Review [...] Patient states recent history of admission to [facility] for falls. Patient had CT scan in [...] lower extremity wound and is seeing a benzene worker in [place] Dr. Pelayo with improvement over time reported. [...] Prior appendectomy. 5. Tavera catheter in place. [employer] Workstation ID: [id number] Narrative EXAMINATION: CT CHEST [...] wound -Patient sees podiatry Dr. Pelayo in [facility] -Patient was transferred here to podiatry at our facility and consult was placed -Patient has ongoing wound, does his own dressing changes daily, patient denies current infection and defers evaluation today Patient to follow-up within 3-4 weeks [address] Nathan Hayden documented in this encounter [facility] 09-29-2022 Miscellaneous Notes Addended by: LEEANN DON on: 09/29/2022 11:38 AM Modules accepted: Orders documented in this encounter [facility] 09-29-2022 Note Addended by: LEEANN DON on: 09/29/2022 11:38 AM Modules accepted: Orders [facility] 08-26-2022 History of Present illness Narrative Nurse [...] recommendations pending results documented in this encounter [facility] 08-26-2022 Instructions Zakiya Horan LPN - 08/26/2022 [...] 3:00pm the day before your procedure, call [phone] documented in this encounter [facility] 08-25-2022 History of Present illness Narrative Review [...] Patient states recent history of admission to [facility] for falls. Patient had CT scan in [...] appointment 07/07 and patient had referral to [facility] [employer] for medications. According to report, he did [...] did receive hepatitis C treatment on 08/23. [facility] and began to take. No current side effects at this time except for fatigue. Patient denies any nausea, vomiting, abdominal pain. No hematemesis or blood loss. No fevers or chills. Patient continues to get treated for right lower extremity wound and is seeing a benzene worker in [place] Pelayo with improvement over time reported. Patient [...] (Temporal) Resp 14 Ht 1.854 m (6' 1) Wt 103.5 kg (228 lb 3.2 oz) [...] Prior appendectomy. 5. Tavera catheter in place. [employer] Workstation ID: [id number] Narrative EXAMINATION: CT CHEST [...] wound -Patient sees podiatry Dr. Pelayo in [place] -No clear evidence of new infection -Patient has follow-up visit 08/26 -Ongoing wound care and elevation Patient to follow-up within 3-4 weeks [address] Nathan Hayden documented in this encounter [facility] 07-07-2022 History of Present illness Narrative Review [...] Patient states recent history of admission to [facility] for falls. Patient had CT scan in [...] (Temporal) Resp 13 Ht 1.854 m (6' 1) Wt 109.7 kg (241 lb 12.8 oz) [...] Prior appendectomy. 5. Tavera catheter in place. [employer] Workstation ID: [id number] Narrative EXAMINATION: CT CHEST ABDOMEN PELVIS WITHOUT CONTRAST HISTORY: ORDERING SYSTEM PROVIDED HISTORY: Fall; Abdominal Pain; Sepsis of unknown origin, TECHNOLOGIST PROVIDED HISTORY: Illness/Other Reason for exam: Fall, abdominal pain, sepsis of unknown origin Encounter Type: Subsequent/Follow-up Additional signs and symptoms: ORDERING SYSTEM PROVIDED DIAGNOSIS CODES: I63.9 Cerebrovascular accident (CVA), unspecified mechanism ([facility]) N17.9 Acute renal failure, unspecified acute renal failure type ([facility]) A41.9 Sepsis, due to unspecified organism, unspecified whether acute organ dysfunction present ([facility]) L03.119 Cellulitis of lower extremity, unspecified laterality [...] Dr. Nathan Hayden documented in this encounter [facility] 06-07-2022 History of Present illness Narrative HPI Carmen Gilman male 1965 presents to the [facility] with Chief Complaint Patient presents with Referral Patient presents requesting a referral for a specialist to treat Hepatitis. He had an appointment with his PCP today and has not been given a follow up for hepatitis. States he is not receiving any treatment now. He denies SOB, abd distention. Desires to transfer care to [facility] providers. History No Known Allergies Current [...] understands and agrees to proceed with plan. PattieKIEL Carreon 06/07/2022 documented in this encounter [facility] 05-12-2022 Emergency department Note Pt left AMA. Pt offered wheel chair but denied it. Pt walked out of ER with unsteady gait and in stable condition. [facility] 05-12-2022 Emergency department Note Pt left AMA. Pt offered wheel chair but denied it. Pt walked out of ER with unsteady gait and in stable condition. Pt left AMA and signed paper work for leaving AMA. documented in this encounter [facility] 05-12-2022 Emergency department Note Pt left AMA and signed paper work for leaving AMA. [facility] 04-21-2022 Hospital course Narrative Images from the original note were not included. [facility] DISCHARGE SUMMARY Carmen Gilman Admitted: 04/20/2022 Discharge [...] 04/21/22, 1:31 PM documented in this encounter [facility] 04-21-2022 Miscellaneous Notes AMA form signed. [...] ST segments normal T Inversion: V2 normal OR interval normal QRS interval normal QT interval Clinical impression: non-specific ECG documented in this encounter [facility] 04-21-2022 Note Formatting of this n [...] notified antibiotic prescription is at his pharmacy. [facility] 04-21-2022 Consult note Associated Order (s): IP CONSULT TO ENTEROSTOMAL THERAPY Wound care has been consulted for a wound to his leg. Podiatry has also been consulted for this same wound. We will defer to them for wound management. Lpapst RN woundcare [facility] 04-21-2022 Consult note Associated Order (s): IP CONSULT TO ENTEROSTOMAL THERAPY Wound care has been consulted for a wound to his leg. Podiatry has also been consulted for this same wound. We will defer to them for wound management. Lpapst RN woundcare documented in this encounter [facility] 04-21-2022 Note Formatting of this n [...] Absence of pressure ulcer Outcome: Partially Met [facility] 04-21-2022 Note Formatting of this n ote might be different from the original. Patient alert and oriented x3, Patient BP 90/50 Dr. Boudreaux aware. [facility] 04-21-2022 Note Formatting of this n [...] obtain it after I get pt's permission. [facility] 04-20-2022 History and physical note [facility] HISTORY AND PHYSICAL Patient Name: Carmen Gilman : 1965 MR #: [id number] Admit Date: 04/20/2022 Physicians: Ani Worley CNP [...] 04/20/22 9:28 PM Radiology 04/20/22 9:28 PM [facility] 04-20-2022 History and physical note [facility] HISTORY AND PHYSICAL Patient Name: Carmen Gilman : 1965 MR #: [id number] Admit Date: 04/20/2022 Physicians: Ani Worley CNP [...] Arthritis Asthma COPD (chronic obstructive pulmonary disease) ([facility]) Diabetes ([facility]) Hypertension Opioid dependence ([facility]) Past Surgical History Past Surgical History: Procedure [...] 04/20/22 9:28 PM documented in this encounter [facility] 04-20-2022 History of Present illness Narrative [...] and make adjustments as needed. Please use [employer] to call pharmacy or secure chat the [...] 04/20/22 122.6 kg (270 lb 4.5 oz) [place] body weight: 77.6 kg (171 lb 1.2 oz) Adjusted ideal body weight: 95.6 kg (210 lb 12.2 oz) Patient Tmax (last 24 hours): 98 F Micro: pending Pharmacist: Kanika Quintero RPh,PharmD Contact: [phone] documented in this encounter [facility] 04-20-2022 Note Formatting of this n [...] any errors, but occasionally words are mis-transcribed.) [facility] Work Phone: 04-20-2022 Physician Emergency department Note Images from the original note were not included. [facility] ED WHIT Note: NAME: Carmen Gilman 56 y.o. CSN: [id number] PCP: Ani Worley CNP History: Chief Complaint: [...] All other components within normal limits Narrative: [facility] has implemented the eGFR [...] Procedure Abnormality Status --------- ------ CBC Auto Differential[[id number]] Abnormal Final result Manual Differential[[id number]] Abnormal Final result CBC and Diff Morphology[[id number]] Final result Please view results for these tests on the individual orders. TROPONIN OBTAIN VENOUS BLOOD GASES AND PERFORM TROPONIN DRUGS OF ABUSE SCREEN, URINE MORPHOLOGY XR Pelvis 1 View (Standard) Preliminary Result No acute osseous abnormality of the pelvis is identified. Jalbum/mkv Workstation ID: [id number] Knee Right 2 Views (Standard) Preliminary Result 1. Bilateral subcutaneous edema. 2. No acute fracture or dislocation identified in either knee. 3. Total right knee arthroplasty in place. [employer] Workstation ID: [id number] Knee Left 2 Views (Standard) Preliminary Result 1. Bilateral subcutaneous edema. 2. No acute fracture or dislocation identified in either knee. 3. Total right knee arthroplasty in place. JAR/jcw Workstation ID: [id number] XR Chest 1 View Preliminary Result No acute cardiopulmonary process. JAR/klb Workstation ID: [id number] MDM: ED Course as of 04/20/22 172e Apr 20, 2022 1525 pH, Venous: 7.35 [...] Casiano CNP ED Advanced Practice Provider [facility] Emergency Department (Please note that portions of this note have been completed with a voice recognition software. Efforts were made to correct any errors, but occasionally words are mis-transcribed.) Uyen Casiano CNP 04/20/22 1729 [facility] Work Phone: 04-20-2022 Emergency department Note Images from the original note were not included. [facility] ED WHIT Note: NAME: Carmen Gilman 56 y.o. CSN: [id number] PCP: Ani Worley CNP History: Chief Complaint: [...] All other components within normal limits Narrative: [facility] has implemented the eGFR [...] Procedure Abnormality Status --------- ------ CBC Auto Differential[[id number]] Abnormal Final result Manual Differential[[id number]] Abnormal Final result CBC and Diff Morphology[[id number]] Final result Please view results for these tests on the individual orders. TROPONIN OBTAIN VENOUS BLOOD GASES AND PERFORM TROPONIN DRUGS OF ABUSE SCREEN, URINE MORPHOLOGY XR Pelvis 1 View (Standard) Preliminary Result No acute osseous abnormality of the pelvis is identified. Jalbum/iPosition Workstation ID: [id number] Knee Right 2 Views (Standard) Preliminary Result 1. Bilateral subcutaneous edema. 2. No acute fracture or dislocation identified in either knee. 3. Total right knee arthroplasty in place. [employer] Workstation ID: [id number] Knee Left 2 Views (Standard) Preliminary Result 1. Bilateral subcutaneous edema. 2. No acute fracture or dislocation identified in either knee. 3. Total right knee arthroplasty in place. [employer] Workstation ID: [id number] XR Chest 1 View Preliminary Result No acute cardiopulmonary process. Jalbum/streamitb Workstation ID: [id number] MDM: ED Course as [...] Casiano CNP ED Advanced Practice Provider [facility] Emergency Department (Please note that portions [...] are scabbed over. documented in this encounter [facility] 04-20-2022 Note Associated Order(s): EKG 12-lead EKG 12-lead Date/Time: 04/20/2022 3:15 PM Performed by: Carolina Solis MD Authorized by: Carolina Solis MD Interpreted by ED attending physician Comparison: not compared with previous ECG Rhythm: sinus rhythm BPM: 69 Conduction: conduction normal ST Segments: ST segments normal T Inversion: V2 normal OR interval normal QRS interval normal QT interval Clinical impression: non-specific ECG [facility] 04-20-2022 Emergency department Note RODRIGUE Qiu bedside. [facility] 04-20-2022 Emergency department Note Placed call to Dr. Solis to update about pt hypotension. [facility] 04-20-2022 Emergency department Triage note Pt arrived to ed with c/c of fall from standing last night. Pt has swollen legs that he states is chronic. Pt has wounds to bilateral legs that are scabbed over. [facility] 03-07-2022 Physician Emergency department Note Emergency Department Report [facility] EMERGENCY DEPARTMENT Service Date:.03/07/22 PCP: Ani Worley Chief Complaint: Chief Complaint Patient presents with Wound Infection Open wound to the rt. Posterior lower leg x 2-3 months, pt c/o the leaking from the wound site, and need ATB [...] . . Nuno Cantor MD 03/07/22 0338 [facility] 03-07-2022 Emergency department Note Emergency Department Report [facility] EMERGENCY DEPARTMENT Service Date:.03/07/22 PCP: Ani Worley Chief Complaint: Chief Complaint Patient presents with Wound Infection Open wound to the rt. Posterior lower leg x 2-3 months, pt c/o the leaking from the wound site, and need ATB [...] MD 03/07/22 0338 documented in this encounter [facility] 11-15-2021 History of Present illness Narrative 11/15/21 [...] Transfer Skill: Sit To Stand, Rehab Eval [place] (Sit-Stand Transfers) contact guard Physical Assist/Nonphysical Assist: Sit/Stand 1 person assist Weight-Bearing Restrictions: Sit/Stand full weight-bearing Assistive Device For Transfer: Sit/Stand 2 wheeled walker Gait Skills, PT Eval Level of [place]: Gait contact guard Physical Assist/Nonphysical Assist: Gait [...] Transfer Skill: Sit To Stand, Rehab Eval [place] (Sit-Stand Transfers) contact guard Physical Assist/Nonphysical Assist: [...] Supine to Sit, Rehab Eval Level of [place]: Supine/Sit contact guard Physical Assist/Nonphysical Assist: Supine/Sit 1 person assist Transfer Skill: Sit To Stand, Rehab Eval [place] (Sit-Stand Transfers) contact guard Physical Assist/Nonphysical Assist: Sit/Stand 1 person assist Weight-Bearing Restrictions: Sit/Stand full weight-bearing Assistive Device For Transfer: Sit/Stand 2 wheeled walker Gait Skills, PT Eval Level of [place]: Gait contact guard Physical Assist/Nonphysical Assist: Gait [...] x2 and Bala x1 maintained from this SOFTWARE SYSTEMS ARCHITECT and WINN assisted pt with pericare. Pt [...] Transfer Skill: Sit To Stand, Rehab Eval [place] (Sit-Stand Transfers) minimum assist (75% patient effort) Physical Assist/Nonphysical Assist: Sit/Stand 2 person assist Weight-Bearing Restrictions: Sit/Stand full weight-bearing Assistive Device For Transfer: Sit/Stand 2 wheeled walker Gait Skills, PT Eval Level of [place]: Gait minimum assist (75% patients effort) Physical [...] is a 56 y.o. male admitted to [facility] for: 1. MARLENE (acute kidney injury) [...] (278 lb) 03/23/18 132.9 kg (293 lb) [place] body weight: 77.6 kg (171 lb 1.2 [...] Score: 0 Nutrition: 2-->probably inadequate EER: Calories: 3182-7049 kcal (25-30 kcal/kg IBW) Protein: 62-78 gm [...] AMRIK Daniels Registered Dietitian, Licensed Dietitian 11/13/21 CIVIL ENGINEERING INTERN met with patient to discuss discharge plans. CIVIL ENGINEERING INTERN explained that therapy was recommending the patient go to a facility for rehab. Patient states that he does not want to go to a facility. CIVIL ENGINEERING INTERN explained that it is not safe for him to return home. He states that he feels like he does well with therapy and is not going to go to a facility. He states I just need a walker. CIVIL ENGINEERING INTERN provided patient with a walker from the DME supply. Paperwork completed. Patient agreeable to home health care. He is agreeable for home health and would like to use [facility]. SW team to make referral to [facility]. CIVIL ENGINEERING INTERN attempted to talk with patient about rehab one more time but patient stated I am not going to go anywhere. CIVIL ENGINEERING INTERN to follow. CIVIL ENGINEERING INTERN Places referral to [facility] 11/13/21 0946 Time In/Out Time In 0946 [...] Supine to Sit, Rehab Eval Level of [place]: Supine/Sit stand-by assist Physical Assist/Nonphysical Assist: Supine/Sit 1 person assist Transfer Skill: Sit To Stand, Rehab Eval [place] (Sit-Stand Transfers) moderate assist (50% patient effort) Physical Assist/Nonphysical Assist: Sit/Stand 2 person assist Weight-Bearing Restrictions: Sit/Stand full weight-bearing Assistive Device For Transfer: Sit/Stand 2 wheeled walker Gait Skills, PT Eval Level of [place]: Gait contact guard Physical Assist/Nonphysical Assist: Gait [...] 4. Pt will be independent with HEP. CIVIL ENGINEERING INTERN attempted to meet with patient to discuss rehab placement. Per nursing patient is very lethargic. CIVIL ENGINEERING INTERN to re attempt later this date if [...] Muscle Testing (MMT) Dominant Hand right Hand Copy Holder, Right moderate Hand Copy Holder, Left moderate Manual Muscle Testing Results other (see comments) Additional Documentation (shoulder flexion 3-/5) Bed Mobility Skill: Supine to Sit, Rehab Eval Level of [place]: Supine/Sit stand-by assist Physical Assist/Nonphysical Assist: Supine/Sit 1 person assist Transfer Skill: Sit to Stand, Rehab Eval Level of [place]: Sit/Stand moderate assist (50% patients effort) Physical Assist/Nonphysical Assist: Sit/Stand 2 person assist Weight-Bearing Restrictions: Sit/Stand full weight-bearing Assistive Device for Transfer: Sit/Stand wheeled walker Lower Body Dressing Level of [place] dependent (less than 25% patients effort) Physical Assist/Nonphysical Assist 1 person + 1 person to manage equipment Toileting Level of [place] maximum assist (25% patients effort) Physical Assist/Nonphysical [...] during transfers Therapist Information License # [id number] 1. Pt will complete LB dressing mod assist 2. Pt will complete sponge bathing mod assist 3. Pt will complete toileting to BSC min assist 4. Pt will complete hygiene/grooming sitting EOB set up 5. Pt will complete UB dressing min assist 6. Pt will participate B UE ROM and distal strengthening techniques to improve safety with transfers CIVIL ENGINEERING INTERN met with patient to discuss discharge plans. Patient states that he currently lives in a single story apartment alone. He states that he does not have advance directives. No listed emergency contacts. He asked CIVIL ENGINEERING INTERN to add his sister, Aliyah Gilman. Patient states that he has a history of anxiety and takes medication for it. Patient states that he is not independent right now. He states that he has not been able to get up to attempt to walk since coming to the hospital, but he was walking very slowly yesterday. Patient expresses extreme weakness and asked this CIVIL ENGINEERING INTERN to move his milk closer to him on his tray. Patient states that he is open to rehab, but would like to try to walk before making any decisions. CIVIL ENGINEERING INTERN to follow for therapy recommendations. Discharge Plan: CIVIL ENGINEERING INTERN following for therapy recommendations. 11/13/21 0906 Information Source Information Source patient Information Source Name Jennifer Ceron Information Source Number [phone] Contact Information Aerodynamics Professor/SW Added to Care Team Yes This Vmware Consultant is Primary Aerodynamics Professor/SW Yes Social Work Contact Name Jennifer Ceron Client Specialist's Living Environment Lives With alone Living Arrangements [...] Source admission list;physician documented in this encounter [facility] 11-15-2021 Hospital course Narrative Images from the [...] pre-hospital diet as tolerated. Discharge Follow-up: Ani Worley, SKYLER-PACKAGE LINE RELIEF OPERATOR [address] [facility] [address] Follow up in 1 week(s) Nathan Branch MD [address] [facility] [address] Follow up in 1 week(s) Discharge Disposition: Patient will be discharged in stable condition. Discharge Time: Including assessment, planning, and medication reconciliation was greater than 35 min. Raymond Osman CNP completing Discharge Summary for attending physician. Please note Portions of this note utilized Kontagent dictation software, please excuse any typographical or [...] during this hospitalization documented in this encounter [facility] 11-15-2021 Note Formatting of this n ote [...] left unit via wheelchair, with all belongings. [facility] 11-15-2021 Miscellaneous Notes Problem: Patient Care [...] Conf Outcome: Ongoing documented in this encounter [facility] 11-14-2021 Note Formatting of this n ote might be different from the original. Pt resting with eyes closed, no change in assessment, call light in reach. [facility] 11-14-2021 Note Formatting of this n ote might be different from the original. Pt up in recliner, lunch ordered . No change in previous assessment, call light in each. [facility] 11-14-2021 Note Formatting of this n [...] hospitalization care will be discharge to home. [facility] 11-14-2021 Note Formatting of this n ote might be different from the original. 0000- No changes from previous 2000 shift assessment unless charted otherwise. 0500- No changes from previous 0000 shift assessment unless charted otherwise. [facility] 11-13-2021 Note Formatting of this n ote might be different from the original. No changes in assessment since previous unless otherwise charted Patient remain up in chair, no complaints of pain, call light within reach Daughter updated via phone Waiting on echo and US results [facility] 11-13-2021 Note Formatting of this n ote might be different from the original. No changes in assessment since 0800 unless otherwise charted [facility] 11-13-2021 History and physical note History and Physical Examination 11/13/21 11:59 AM Chief Complaint: Dizziness History of Present Illness: Patient is a 56 y.o. male presents to [facility] for evaluation of dizziness. Patient with a [...] 11/13/21 0700 91/51 79 24 96 % 03/25/22 0645 92/45 80 18 95 % 11/13/21 [...] Please note Portions of this note utilized Kontagent dictation software, please excuse any typographical or grammatical errors [facility] Medicine Associated attestation - Son [...] Please note: Portions of this note utilized Kontagent dictation software, please excuse any typographical or grammatical errors. Which inadvertently, might change the meaning and understanding. [facility] 11-13-2021 History and physical note History and Physical Examination 11/13/21 11:59 AM Chief Complaint: Dizziness History of Present Illness: Patient is a 56 y.o. male presents to [facility] for evaluation of dizziness. Patient with a [...] Please note Portions of this note utilized Innovative [employer] software, please excuse any typographical or grammatical errors [facility] Associated attestation - Son Rodriguez MD - [...] Please note: Portions of this note utilized [employer] software, please excuse any typographical or grammatical errors. Which inadvertently, might change the meaning and understanding. documented in this encounter [facility] 11-13-2021 Note Formatting of this n ote might be different from the original. notified Johnathan OLVERA that patient would like to speak with him Patient is unable to move legs appropriately, struggled feeding himself breakfast (Johnathan OLVERA notified) Call light within reach [facility] 11-13-2021 Note Formatting of this n ote might be different from the original. attempted to call daughter Ginny, no voicemail box set up [facility] 11-13-2021 Nurse Surgical operation note 0000: patient [...] lisinopril pills inside). 0400: prior assessment unchanged. [facility] 11-13-2021 Nurse Note 0000: patient admitted to [...] prior assessment unchanged. documented in this encounter [facility] 11-13-2021 Note Formatting of this n ote might be different from the original. Problem: Patient Care Overview Goal: Plan of Care Review Outcome: Ongoing Goal: Individualization & Mutuality Outcome: Ongoing Goal: Discharge Needs Assessment Outcome: Ongoing Goal: Interdisciplinary Rounds/Family Conf Outcome: Ongoing [facility] 11-12-2021 Emergency department Note Room 3785 assigned [facility] 11-12-2021 Emergency department Note Room [address] Cantor speaking with Dr. Rodriguez at this time Emergency Department Report [facility] EMERGENCY DEPARTMENT Service Date:.11/12/21 PCP: Ani Worley Chief Complaint: Chief Complaint Patient presents with Dizziness Dizziness and abdominal pain since this morning. LUKASZ Gilman is a 56 y.o. male presents to the ED today due to dizziness. Patient states his symptoms started this morning. He states he's been very dizzy and some diffuse abdominal pain. Patient was having difficulty inability secondary to dizziness. He called 911 for transfer to the hospital. Patient states he's had no change in his medication recently. He was last admitted to [facility] in September. Patient denies any fever cough [...] 78 18 (!) 86 % -- -- 11/12/21 1901 -- -- -- -- -- -- 1.829 [...] Use Authorization (EUA) for the qualitative detection [id number] nucleic acid. PROTIME-INR Result Value Ref Range [...] YELLOW YELLOW APPEARANCE, URINE CLEAR CLEAR Specific Leopold, Urine 1.020 1.010 - 1.025 PH URINE [...] information. . . Nuno Cantor MD 11/12/21 6380 Bed: E006 Expected date: Expected time: Means of arrival: Comments: EMS documented in this encounter [facility] 11-12-[address] Cantor speaking with Dr. Rodriguez at this time [facility] 11-12-2021 Physician Emergency department Note Emergency Department Report [facility] EMERGENCY DEPARTMENT Service Date:.11/12/21 PCP: Ani Worley Chief Complaint: Chief Complaint Patient presents with Dizziness Dizziness and abdominal pain since this morning. LUKASZ Gilman is a 56 y.o. male presents to the ED today due to dizziness. Patient states his symptoms started this morning. He states he's been very dizzy and some diffuse abdominal pain. Patient was having difficulty inability secondary to dizziness. He called 911 for transfer to the hospital. Patient states he's had no change in his medication recently. He was last admitted to [facility] in September. Patient denies any fever cough [...] Temp src Pulse Resp SpO2 Height Weight 11/12/210 93/50 -- -- 68 (!) 40 98 [...] -- 70 16 100 % -- -- 11/12/21 2005 91/53 -- -- 72 20 99 % -- -- 11/12/211999 83/44 -- -- 70 18 98 % -- -- 11/12/211954 (!) 78/41 -- -- 71 14 97 % -- -- 11/12/21 1950 (!) 75/38 -- -- 70 15 97 % -- -- 11/12/21 194 (!) 72/36 -- -- 69 15 95 [...] Use Authorization (EUA) for the qualitative detection [id number] nucleic acid. PROTIME-INR Result Value Ref Range [...] YELLOW YELLOW APPEARANCE, URINE CLEAR CLEAR Specific Leopold, Urine 1.020 1.010 - 1.025 PH URINE [...] Serial H&H's repeat labs in the a.m. [facility] Number of Diagnoses or Management Options Amount [...] information. . . Nuno Cantor MD 11/12/21 3490 [employer] Work Phone: 11-12-2021 Emergency department Note Bed: E006 Expected date: Expected time: Means of arrival: Comments: EMS [facility] 10-07-2021 Emergency department Note Patient left AMA. [...] Baker notified Patient stated,'I'm a client at [facility] . He admitted that he is not [...] contacted at this time. Emergency Department Report [facility] EMERGENCY DEPARTMENT Service Date:.10/07/21 PCP: Ani Worley Chief Complaint: Chief Complaint Patient presents with Fall pt c/o whole LEFT side pain after trip and fall [...] at the patient does not work at [email or web address]. Instead, it is a [employer] center that he attends. Patient states that he would like to bill for his injuries. Patient then also states he has another open [facility] case and he would like today's injuries [...] a lot due to his polysubstance abuse. [facility] paperwork was canceled as the [...] PA-C 10/07/21 1354 documented in this encounter [facility] 04-14-2021 History of Present illness Narrative Patient: [...] Assessment: Physical Exam documented in this encounter [facility] 04-04-2021 Emergency department Note Emergency Department Report [facility] EMERGENCY DEPARTMENT Service Date:.04/04/21 PCP: Ani Worley Chief Complaint: Chief Complaint Patient presents with Foot Pain bilateral foot pain, patient reports that he is unablet to walk HPI Carmen Gilman is a 55 y.o. [...] Social Gatherings with Friends and Family: Attends Confucianism Services: Active Member of Clubs or Organizations: [...] Temp Temp src Pulse Resp SpO2 Height 04/04/21217 1.829 m (6') 04/04/21216 120/57 97.6 F (36.4 C) Oral 80 [...] . Nuno Cantor MD 04/04/21 0307 [employer]side documented in this encounter [facility] 03-30-2021 Emergency department Note Emergency Department Report [facility] EMERGENCY DEPARTMENT Service Date:.03/30/21 PCP: Palmer [...] Social Gatherings with Friends and Family: Attends Confucianism Services: Active Member of Clubs or Organizations: [...] MD 03/30/21 1257 documented in this encounter [facility] 02-02-2021 Emergency department Note Images from the original note were not included. [facility] EMERGENCY DEPARTMENT PCP - Ani Worley, RODRIGUE Please excuse grammar and misspelling secondary to Dragon dictation use Chief Complaint Patient presents with Shoulder Pain Toe Pain HPI Chief complaint shoulder and toe pain This is a 55-year-old male who states that he fell several weeks ago injuring his shoulder and his toe. He has not really take anything other than [id number] medications. Patient states that his third toes [...] pneumothorax. Patient will be discharged with recommendation [id number] Aleve and Tylenol as needed for pain [...] radiographs from 12/03/2020 and 11/01/2020. No fracture. DL/james Workstation ID: [id number] Toe(s) Left 2+ [...] src Pulse Resp SpO2 Height Weight 02/02/21 174 (!) 104/36 72 02/02/21 1537 110/69 98.2 [...] Social Gatherings with Friends and Family: Attends Confucianism Services: Active Member of Clubs or Organizations: Attends Club or Organization Meetings: Marital Status: Allergies No Known Allergies Medications Discharge Medication List as of 02/02/2021 6:35 PM START taking these medications Details ibuprofen (ADVIL,MOTRIN) 600 MG tablet Take 1 (one) tablet (600 mg total) by mouth every 8 (eight) hours as needed for pain ., Starting Tue02/02/2021, Until 02/07/2021 at 2359, Normal CONTINUE these [...] fell from chair. documented in this encounter [facility] Evaluation note Diagnosis Pain in joint of right shoulder- Primary Contusion of right great toe without damage to nail, initial encounter [facility] Fall, initial encounter- Primary Contusion of left shoulder, initial encounter Rib contusion, left, initial encounter Contusion of left knee, initial encounter Polysubstance abuse Other, mixed, or unspecified nondependent drug abuse, unspecified [facility] Diagnosis MARLENE (acute kidney injury) Acute [...] severe protein-calorie malnutrition [facility] Diagnosis Right foot pain- Primary Pain in limb [facility] Diagnosis Closed displaced fracture of middle phalanx of lesser toe of left foot, initial encounter- Primary Dislocation of interphalangeal joint of lesser toe of left foot, initial encounter [facility] Diagnosis Acquired varus deformity of left foot- Primary Hallux rigidus, acquired, left Fracture of second toe, left, open, with malunion, subsequent encounter [facility] Diagnosis Cellulitis of right lower extremity- Primary Cellulitis and abscess of leg, except foot Venous stasis ulcer of right calf, unspecified ulcer stage, unspecified whether varicose veins present [facility]* Diagnosis MARLENE (acute kidney injury) (HCC) Cellulitis of lower extremity, unspecified laterality Hypotension, unspecified hypotension type Dehydration Peripheral edema Edema Fall Unspecified fall [facility]* Diagnosis Ulcer of right foot, unspecified ulcer stage (HCC)- Primary Lymphedema of both lower extremities documented in this encounter [employer] Phone: evaluation note* Diagnosis Shortness of breath- Primary [facility]* Diagnosis Referral of patient- Primary Referral of patient without examination or treatment Chronic viral hepatitis B without delta agent and 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 Chronic hepatitis C without hepatic coma [facility]* Diagnosis Chronic hepatitis C without hepatic coma- Primary Hepatitis B core antibody positive Other and unspecified nonspecific immunological findings Healthcare maintenance Routine general medical examination at a health care facility Obesity (BMI 30-39.9) Obesity, unspecified Pancytopenia Other pancytopenia Alcoholic cirrhosis, unspecified whether ascites present [facility] Diagnosis Chronic hepatitis C without hepatic coma- Primary Hepatitis B core antibody positive Other and unspecified nonspecific immunological findings Healthcare maintenance Routine general medical examination at a [facility] care facility Alcoholic cirrhosis, unspecified whether ascites present Pancytopenia Other pancytopenia Obesity (BMI 30-39.9) Obesity, unspecified [facility]* Diagnosis Cirrhosis of liver without ascites, unspecified hepatic cirrhosis type- Primary Chronic hepatitis C without hepatic coma [facility] Diagnosis Chronic hepatitis C without hepatic coma- Primary Hepatitis B core antibody positive Other and unspecified nonspecific immunological findings Pancytopenia Other pancytopenia Healthcare maintenance Routine general medical examination at a [facility] care [facility] Obesity (BMI 30-39.9) Obesity, unspecified Cirrhosis of liver without ascites, unspecified hepatic cirrhosis type Wound of right lower extremity, subsequent encounter [facility]* Diagnosis Cirrhosis of liver without ascites, unspecified hepatic cirrhosis type Chronic hepatitis C without hepatic coma [facility]* Diagnosis Wound of right lower extremity, subsequent encounter- Primary Chronic hepatitis C without hepatic coma Hepatitis B core antibody positive Other and unspecified nonspecific immunological findings Pancytopenia Other pancytopenia Obesity (BMI 30-39.9) Obesity, unspecified Healthcare maintenance Routine general [facility] Cirrhosis of liver without ascites, unspecified hepatic cirrhosis type [facility]* Diagnosis Venous stasis ulcer of right lower leg with edema of right lower leg- Primary Chronic venous insufficiency Unspecified venous (peripheral) insufficiency Lymphedema Other lymphedema [facility]* Diagnosis Venous stasis ulcer of right lower leg with edema of right lower leg- Primary Chronic venous insufficiency Unspecified venous (peripheral) insufficiency Lymphedema Other lymphedema [facility]* Diagnosis Pancytopenia- Primary Other pancytopenia Thrombocytopenia Thrombocytopenia, unspecified Leukopenia, unspecified type Microcytic hypochromic anemia Iron deficiency anemia, unspecified Chronic hepatitis C without hepatic coma 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 Viral hepatitis B without mention of hepatic coma, chronic, with hepatitis delta Hepatosplenomegaly Other chronic nonalcoholic liver disease [facility]* Diagnosis Venous stasis ulcer of right lower leg with edema of right lower leg- Primary Chronic venous insufficiency Unspecified venous (peripheral) insufficiency [facility]* Diagnosis Chronic hepatitis C without hepatic coma- Primary Hepatitis B core antibody positive Other and unspecified nonspecific immunological findings Pancytopenia Other pancytopenia Cirrhosis of liver without ascites, unspecified hepatic cirrhosis type Healthcare maintenance Routine general medical examination at a [facility] facility Obesity (BMI 30-39.9) Obesity, unspecified [facility]* Diagnosis Hand weakness Muscle weakness (generalized) documented [facility]* Diagnosis Venous stasis ulcer of right lower leg with edema of right lower leg- Primary Chronic venous insufficiency Unspecified venous (peripheral) insufficiency Lymphedema Other lymphedema documented [facility]* Diagnosis Venous stasis ulcer of right lower leg with edema of right lower leg- Primary Chronic venous insufficiency Unspecified venous (peripheral) insufficiency Lymphedema Other lymphedema documented [facility]* Diagnosis Venous stasis ulcer of right lower leg with edema of right lower leg- Primary Chronic venous insufficiency Unspecified venous (peripheral) insufficiency Lymphedema Other lymphedema Fungal dermatitis Dermatomycosis, unspecified documented [facility]* Diagnosis Venous stasis ulcer of right lower leg with edema of right lower leg- Primary Chronic venous insufficiency Unspecified venous (peripheral) insufficiency Lymphedema Other lymphedema documented [facility]* Diagnosis Chronic hepatitis C without hepatic coma- Primary Hepatitis B core antibody positive Other and unspecified nonspecific immunological findings Pancytopenia Other pancytopenia Healthcare maintenance Routine general medical examination at a [facility] care facility Cirrhosis of liver without ascites, unspecified hepatic cirrhosis type Alcoholic cirrhosis, unspecified whether ascites present Hand weakness Muscle weakness (generalized) Wound of right lower extremity, subsequent encounter documented [facility]* Diagnosis Venous stasis ulcer of right lower leg with edema of right lower leg- Primary Chronic venous insufficiency Unspecified venous (peripheral) insufficiency Lymphedema Other lymphedema Foot mass, right documented [facility]* Diagnosis Venous stasis ulcer of right lower leg with edema of right lower leg- Primary Chronic venous insufficiency Unspecified venous (peripheral) insufficiency Lymphedema Other lymphedema Pressure ulcer of right foot, stage 3 Foot mass, right documented [facility]* Diagnosis Venous stasis ulcer of right lower leg with edema of right lower leg- Primary Pressure ulcer of right foot, stage 3 Chronic venous insufficiency Unspecified venous (peripheral) insufficiency Lymphedema Other lymphedema documented [facility]* Diagnosis Mass of right foot- Primary Bursitis of right foot Subluxation of foot joint, right, initial encounter [facility] Diagnosis Cellulitis of left lower extremity- Primary Cellulitis and abscess of leg, except foot Suspected DVT (deep vein thrombosis) Sepsis without acute organ dysfunction, due to unspecified organism Pancytopenia Other pancytopenia Cellulitis and abscess of left lower extremity [facility]* Diagnosis Cellulitis of lower extremity, unspecified laterality- Primary Failure of outpatient treatment Ulcers of both lower legs, limited to breakdown of skin documented [facility] this [facility]* Diagnosis Cellulitis of right lower extremity- [...] foot, except toes documented in this encounter [facility] note* Diagnosis Nondependent cocaine abuse (HCC)- Primary [...] extremity, unspecified laterality documented in this encounter [facility] note* Diagnosis Wound of right lower extremity, subsequent encounter- Primary Chronic hepatitis C without hepatic coma Pancytopenia Other pancytopenia MSSA (methicillin susceptible Staphylococcus aureus) infection Methicillin susceptible Staphylococcus aureus in conditions classified elsewhere and of unspecified site Alcoholic cirrhosis, unspecified whether ascites present Left leg cellulitis Cellulitis and abscess of leg, except foot documented in this encounter [facility] note* Diagnosis Left leg cellulitis- Primary Cellulitis and abscess of leg, except foot Close exposure to COVID-19 virus Chronic hepatitis C without hepatic coma Wound of right lower extremity, subsequent encounter Pancytopenia Other pancytopenia Alcoholic cirrhosis, unspecified whether ascites present Healthcare maintenance Routine general medical examination at a health care facility Obesity (BMI 30-39.9) Obesity, unspecified [facility]* Diagnosis Pancytopenia- Primary Other pancytopenia Chronic [...] findings Housing instability [facility]* Diagnosis Pressure ulcer of right foot, stage 3- Primary Venous stasis ulcer of right lower leg with edema of right lower leg Lymphedema Other lymphedema Chronic venous insufficiency Unspecified venous (peripheral) insufficiency Venous stasis ulcer of left lower leg with edema of left lower leg documented [facility]* Diagnosis Hematoma- Primary Contusion [...] layer exposed (HCC) [facility]* Diagnosis Leg hematoma, right, sequela- Primary [...] exposed (HCC)- Primary [facility] Diagnosis 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)- Primary [facility]* Diagnosis 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)- Primary [facility]* Diagnosis Cellulitis, unspecified cellulitis site- Primary [facility]* Diagnosis Encounter for screening colonoscopy- Primary [facility]* Diagnosis Midfoot collapse of right lower extremity- Primary Pes planus of both feet Type 2 diabetes mellitus without complication, without long-term current use of insulin (HCC) Peripheral vascular disease (HCC) Unspecified peripheral vascular disease Arthritis of midfoot, unspecified laterality Chronic venous hypertension, unspecified laterality [facility]* Diagnosis Acute exacerbation of chronic obstructive [...] of right foot [facility]* Diagnosis Acute exacerbation of chronic obstructive [...] encounter (HCC)- Primary documented in this encounter [facility] note* Diagnosis Acute exacerbation of chronic [...] Compression fracture of T7 vertebra, initial encounter ([facility]) Osteoarthritis of right knee, unspecified osteoarthritis type [...] and subcutaneous tissue documented in this encounter [facility] note* Diagnosis Acute exacerbation of chronic [...] Muscle weakness (generalized) [facility]* Diagnosis Acute exacerbation of chronic obstructive [...] of muscle (HCC) documented in this encounter [facility] note* Diagnosis Acute exacerbation of chronic [...] circulatory system disorder documented in this encounter [facility] note* Diagnosis Acute exacerbation of chronic [...] muscle (HCC)- Primary documented in this encounter [facility] note* Diagnosis Acute exacerbation of chronic [...] peripheral vascular disease documented in this encounter [facility] note* Diagnosis Acute exacerbation of chronic [...] Obesity (BMI 30-39.9) documented in this encounter [facility] note* Diagnosis Acute exacerbation of chronic [...] extremities [R60.0]- Primary [facility]* Diagnosis Acute exacerbation of chronic obstructive [...] failure type (HCC) documented in this encounter [facility] note* Diagnosis Acute exacerbation of chronic [...] diastolic congestive heart failure (HCC) Atherosclerosis of [place] artery of lower extremity with ulceration, unspecified laterality, unspecified ulceration site (HCC)- Primary [facility]* Diagnosis Acute exacerbation of chronic obstructive [...] right knee replacement documented in this encounter [facility] note* Diagnosis Acute exacerbation of chronic [...] right knee replacement documented in this encounter [facility] note* Diagnosis Acute exacerbation of chronic [...] right knee replacement documented in this encounter [facility] note* Diagnosis Acute exacerbation of chronic [...] pulmonary heart diseases documented in this encounter [facility] note* Diagnosis Acute exacerbation of chronic [...] knee, right- Primary documented in this encounter [facility] note* Diagnosis Acute exacerbation of chronic [...] knee, right- Primary documented in this encounter [facility] note* Diagnosis Acute exacerbation of chronic [...] right knee replacement documented in this encounter [facility] note* Diagnosis Acute exacerbation of chronic [...] right knee replacement documented in this encounter [facility] Discharge instructions* Attachments The following attachments cannot be sent through Care Everywhere. * Shoulder Sprain (Guamanian) * Contusion (Guamanian) [facility] Attachments The following attachments cannot be sent through Care Everywhere. * Contusion (Guamanian) documented in this [facility] Discharge instructions* Attachments The following attachments cannot be sent through Care Everywhere. * Hepatitis C: General Info (Guamanian) * Hepatitis B: General Info ([place]ian) documented in this [facility] [facility] Discharge instructions* Attachments The following attachments cannot be sent through Care Everywhere. * Foot Bones: Anatomy Sketch (Guamanian) documented in this [facility] Discharge instructions* Attachments The following attachments cannot be sent through Care Everywhere. * Cellulitis (Guamanian) * Compression Stockings: General Info (Guamanian) documented in this [facility] Discharge instructions* Attachments The following attachments cannot be sent through Care Everywhere. * Lymphedema (Guamanian) [facility] Work Phone: Hospital Discharge instructions* Attachments The following attachments cannot be sent through Care Everywhere. * SOB (Shortness of Breath) (Guamanian) [facility]* Attachments The following attachments cannot be sent through Care Everywhere. * Pain and Pain Control ([facility]) (Guamanian) documented in this encounterSumma HealthReason for referral (narrative)* Consultation (Routine) - New Request Specialty Diagnoses / Procedures Referred By Contac t Referred To Contact Infectious Diseases Diagnoses Chronic hepatitis C without hepatic coma Chronic viral hepatitis B without delta agent and 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 Paul Osman, MODELING AGENT-PACKAGE LINE RELIEF OPERATOR [address] [place] [address] Nathan Branch MD [address] [place] [address] Referral ID Status Reason Start Date Expiration Date V isits Requested Visits Authorized [id number] New Request 11/15/2021 12/10/2022 1 1 * (Routine) - New Request Specialty Diagnoses / Procedures Referred By Contac t Referred To Contact Procedures INPATIENT ADMISSION NOTIFICATION Son Rodriguez MD [address] [place] [address] Referral ID Status Reason Start Date Expiration Date V isits Requested Visits Authorized [id number] New Request 11/12/2021 12/07/2022 1 1 * Radiology (Emergency) - New Request Specialty Diagnoses / Procedures Referred By Contac t Referred To Contact Procedures ECG Nuno Cantor MD [address] [place] [phone] Referral ID Status Reason Start Date Expiration Date V isits Requested Visits Authorized [id number] New Request 11/12/2021 12/07/2022 1 1 [facility] (narrative)* Consultation (Routine) - Pending Review Specialty Diagnoses / Procedures Referred By Contac t Referred To Contact Podiatry Diagnoses Right foot pain Sofía Devine MD [address] [place] [address] Felipe Molina, DPM [address] [place] [address] Referral ID Status Reason Start Date Expiration Date V isits Requested Visits Authorized [id number] Pending Review 03/30/2021 04/24/2022 1 1 [facility] for referral (narrative)* Consultation (Routine) - New Request Specialty Diagnoses / Procedures Referred By Contac t Referred To Contact Wound Care Diagnoses Cellulitis of right lower extremity Venous stasis ulcer of right calf, unspecified ulcer stage, unspecified whether varicose veins present Nuno Cantor MD [address] [place] [address] [facility] Wound [address] [address] Referral ID Status Reason Start Date Expiration Date V isits Requested Visits Authorized [id number] New Request 03/07/2022 04/01/2023 1 1 [facility] for referral (narrative)* Consultation (Urgent) - New Request Specialty Diagnoses / Procedures Referred By Contac t Referred To Contact Infectious Diseases Diagnoses Referral of patient Chronic viral hepatitis B without delta agent and 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 Chronic hepatitis C without hepatic coma Pattie Roman R, MODELING AGENT-PACKAGE LINE RELIEF OPERATOR [address] [place] [address] Nathan Hayden MD [address] [place] [address] Referral ID Status Reason Start Date Expiration Date V isits Requested Visits Authorized [id number] New Request 06/07/2022 07/02/2023 1 1 * Consultation (Urgent) - New Request Specialty Diagnoses / Procedures Referred By Contac t Referred To Contact Family Medicine Diagnoses Referral of patient Chronic viral hepatitis B without delta agent and 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 Chronic hepatitis C without hepatic coma Pattie Roman, MODELING AGENT-PACKAGE LINE RELIEF OPERATOR [address] [place] [phone] Referral ID Status Reason Start Date Expiration Date V isits Requested Visits Authorized [id number] New Request 06/07/2022 07/02/2023 1 1 [facility] for referral (narrative)* Consultation (Routine) - New Request Specialty Diagnoses / Procedures Referred By Contac t Referred To Contact Podiatry Diagnoses Wound of right lower extremity, subsequent encounter Nathan Hayden MD [address] [place] [address] Felipe Molina DPM [address] [place] [phone] Referral ID Status Reason Start Date Expiration Date V isits Requested Visits Authorized [id number] New Request 09/29/2022 10/24/2023 1 1 * Consultation (Routine) - New Request Specialty Diagnoses / Procedures Referred By Contac t Referred To Contact Hematology Diagnoses Pancytopenia Nathan Hayden MD [address] [place] [address] Referral ID Status Reason Start Date Expiration Date V isits Requested Visits Authorized [id number] New Request 09/29/2022 10/24/2023 1 1 [facility] for referral (narrative)* Consultation (Routine) - Closed Specialty Diagnoses / Procedures Referred By Contac t Referred To Contact Wound Care Diagnoses Wound of right lower extremity, subsequent encounter Nathan Hayden MD [address] [place] [address] Jessenia Perry, MODELING AGENT-PACKAGE LINE RELIEF OPERATOR [address] [place] [address] Referral ID Status Reason Start Date Expiration Date Visits Re quested Visits Authorized [id number] Closed 11/03/2022 11/28/2023 1 1 [facility] for referral (narrative)* Consultation (Routine) - New Request Specialty Diagnoses / Procedures Referred By Contac t Referred To Contact Podiatry Diagnoses Foot mass, right Jamie, Marie Saucedo, MODELING AGENT-PACKAGE LINE RELIEF OPERATOR [address] [place] [phone] Kristi Bryan, DPM [address] [place] [address] Referral ID Status Reason Start Date Expiration Date V isits Requested Visits Authorized [id number] New Request 01/25/2023 02/19/2024 1 1 [facility] (narrative)* (Routine) Specialty Diagnoses / Procedures Referred By Contac t Referred To Contact [facility] REV LOC [address] [place] [address] Referral ID Status Reason Start Date Expiration Date Visits Re quested Visits Authorized [facility] for referral (narrative)* Consultation (Routine) - Authorized Specialty Diagnoses / Procedures Referred By Contac t Referred To Contact General Surgery Diagnoses Encounter for screening colonoscopy Ani Worley, PACKAGE LINE RELIEF OPERATOR [address] [place] [address] [facility] Surgspecmcm Glesnr [address] [facility] Office Building, 5th [place] [address] Referral ID Status Reason Start Date Expiration Date Visits Requested Visits Authorized [id number] Authorized Specialty Services Required/Pat ient's Best Interest 12/22/2023 12/21/2024 1 1 [facility] Assessments Diagnosis Hallux valgus (acquired), ri [...] left lower lobe due to infectious organism (HCC) Influenza A Influenza with other respiratory manifestations COPD exacerbation (HCC) Obstructive chronic bronchitis with exacerbation Pneumonia Pneumonia, [...] chronic respiratory failure with hypoxia and hypercapnia ([facility]) Essential hypertension Unspecified essential hypertension Atrial fibrillation with rapid ventricular response ([facility]) Acute congestive heart failure ([facility]) Congestive heart failure, unspecified Morbid obesity with BMI of 40.0-44.9, adult ([facility]) Type 2 diabetes mellitus, without long-term current use of insulin ([facility]) Diagnosis Chronic obstructive pulmonary disease with acute [...] asthma severity, unspecified whether persistent Morbid obesity (HCC) Morbid obesity H/O CHF Paroxysmal atrial fibrillation ([facility]) Atrial fibrillation Medication refill Issue of repeat [...] Chronic obstructive pulmonary disease, unspecified COPD type ([facility]) History of Present Illness * Monica Condon, BINA - 07/10/2018 1:23 PM EST PATIENT ARRIVED [...] by a physician near his [place] in [place], who recommended that he undergo PT evaluation [...] was walking down a hill and his leg bent so far backward that it touched his back, which ripped everything up in the knee. Patient states that he came all the way to [place] for a second opinion because he heard [...] No Known Allergies Home Medications: Carmen Gilman Johnson Medication Instructions Prior to Surgery BENJA: Printed on:07/31/18 3200 Medication Information Take last dose on Take [...] likely benefit from elective amputation of the [id number] digit. However, patient would prefer to try [...] states that he could go to a senior living or stay in the hospital for a [...] side. After he meets with the social media marketer if they have a plan for what [...] MTP joint. He saw a practitioner in [place] and was told that he could have [...] Norman Baldwin MD in this encounter* Monica Condon, BINA - 10/05/2018 3:25 PM EST PATIENT NOTIFIED THAT HE WOULD HAVE TO BE NWB FOR A MINIMUM OF 6 WEEKS AFTER SURGERY. THIS NURSE HAS CONTACTED SOCIAL WORKERS AT THE HOSPITAL AND THEY STATED THAT WITH HIS INSURANCE HE WOULD MOST LIKELY ONLY GET APPROVED FOR 2 WEEKS OR LESS FOR INTERMEDIATE CARE. HE COULD GET RELEASED TO HOME [...] a bedpan in a wheelchair in a senior living combination postop. However the details of this [...] were reviewed and updated as appropriate in [facility]. He is not a current tobacco [...] the condition(s). documented in this encounter* Do Parrish PT - 10/26/2019 10:45 AM EST [facility] OUTPATIENT REH[facility]IL[facility]ATION Evaluation Today's Date 10/26/2019 [...] and mobility Do Parrish PT STATE LICENSE, [id number] documented in this encounter* Jhonny eMdel MD - 01/04/2020 3:09 PM EDT Interventional Cardiology Clinic Note ID: Carmen Gilman is a 54 y.o. male : 1965 CC: Preop cardiac risk stratification HPI: I had the pleasure of evaluating MrFrancesca Gilman at [facility] in [place] today. He is referred by Dr. Sofía [...] Medel MD, FACC Interventional Cardiology/Structural Heart Disease [facility] documented in this encounter* Palmer Givens [...] pre-op testing he will be seeing an [facility] regulator inspector on November 05 for evaluation. He has [...] encouraged to go to an ER in [place] if his respiratory symptoms return/worsen. Pt also [...] AMA tomorrow morning. Pt also educated that [facility] is a tobacco free hospital and [...] Pt lives alone in his residence in [place]. Pt was not utilizing any services in his home priorto admission. Pt drives and is able to get himself to follow up appointments. Pt has a cane to use to ambulate with and a nebulizer for breathing treatments at home. Pt is a full code and follows with Dr Hdz as his PCP. Pt does not have [...] but patient continuesto refuse. * Felipe Davis RPH - 11/06/2019 6:29 AM EDT Pharmacy Note [...] Transfers Sit to Stand: Stand by assistance Quality Controller: Wheeled walker Skilled Intervention: Pt educated on [...] Cane Prior Level of Function Level of [place]: Needs assistance with ADLs, Needs assistance with functional transfers, Needs assistance with homemaking Lives With: Significant other Receives Help From: Family ADL Assistance: Needs assistance Dressing: Minimal Homemaking Assistance: Needs assistance Homemaking Assistance Comments: Total Vocational: On disability Comments: Mod indep with cane for short distances. SO assists with bed mobility and LB dressing. Patient reports to perform own bathing and toileting, as best I can. For complete objective data, detailed plan of care and patient education refer to: PT EVALUATION flow sheet, PT TREATMENT flow sheet, patient Plan of Care, Plan of Care progress note, and Patient Education. This note stands as the current Discharge Summary upon patient discharge from the hospital or completion of Physical Therapy Plan of Care. documented in this encounter* Daria Dmuont LPN - 01/15/2020 1:58 PM EDT Physical therapy Home health called today patient refused physical therapy today. documented in this encounter* Daria Dumont LPN - 01/22/2020 8:14 AM EDT Patient missed his home therapy visit per Sorin . Patient declined appointment . documented in this encounter* Sofía Dukes MD - 01/24/2020 8:59 AM EDT Dictation on: 01/24/2020 9:00 AM by: SOFÍA DUKES [[id number]] documented in this encounter* Sb Andino MD [...] joint and significant degenerative change. CC: Mari Hdz MD documented in this encounter* Sb Andino [...] he may need to go to a senior living. He states that he lives on a [...] further surgery,risks of anesthesia, DVT, PE, CVA, [place], and . The patient was asked to repeat back understanding of the above conversation and additional [...] as the hallux interphalangeal joint. CC: Mari Hdz MD documented in this encounter* Marcin Moran [...] needs his suboxone or he is leaving. [facility] called and updated. AMA paper signed per patient. radio frequency design engineer in room to discontinue PICC line, IV,and Tavera catheter. * Mayur Hernandez MD - 07/09/2020 5:44 PM EST NEPHROLOGY PROGR[facility] Patient Name: Carmen Gilman Admit Date: MR #: [id number] : 1965 ASSESSMENT/PLAN: 1. Edema - probably [...] sodium chloride (PF) 5 mL Intravenous Q8H [facility] Continuous Infusions: sodium chloride 0.9 % [...] Murrell MD - 07/09/2020 4:29 PM EST [facility] Medicine Inpatient Follow-up 07/09/2020 Krys Murrell MD [facility] Patient: Carmen Gilman Date of : 1965 (54 y.o.) PCP: Mari Hdz MD ASSESSMENT/PLAN: Carmen Gilman 54 y.o. male presented with complains of shortness of breath and altered mental status Principal Problem: Acute exacerbation of chronic obstructive pulmonary disease (COPD) (HCC) Active Problems: Acute on chronic respiratory failure with hypoxia and hypercapnia (HCC) Essential hypertension Atrial fibrillation with rapid ventricular response (HCC) Acute congestive heart failure (HCC) Morbid obesity with BMI of 40.0-44.9, adult ([facility]) Type 2 diabetes mellitus, without long-term current use of insulin (HCC) PLAN: Acute metabolic encephalopathy resolved AMMONIA elevated on admission Check ammonia in a.m. Acute on chronic hypoxic hypercapnic respiratory failure Per food and beverage lead unclear etiology, ? related to acute pulmonary [...] Q12H CASSIUS furosemide 40 mg Intravenous Q8H [facility] lispro insulin 0-15 Units Subcutaneous at bedtime insulin lispro 0-30 Units Subcutaneous TID AC ipratropium-albuteroL 3 mL Inhalation Q4H [facility] predniSONE 40 mg Oral Daily rivaroxaban 20 mg Oral Daily senna-docusate 1 tablet Oral BID sodium chloride (PF) 10 mL Intracatheter Q8H [facility] sodium chloride (PF) 5 mL Intravenous Q8H [facility] Results/Medications Reviewed 07/09/20 4:29 PM: Results from [...] Gilman Date of : 1965 Site: [facility] Referring Provider: Refer to consult order [...] AMA. I tried to review records from [facility] in care everywhere and I could not [...] requested records for review since records in [facility] were limited and patient is a poor historian. He did leave AMA which we discussed was a poor decision, he agreed. I made referral to cardiology and hematology based on the results I reviewed from [facility]. I ordered a CBC and CMP [...] He was seen in ED again at [facility] on 08/01/20 for suspect COVID, no [...] the legs. He is taking buprenorphine from data warehousing specialist and taking gabapentin daily. No complications [...] see how he is doing. LMOM at [phone] and asked to return my call. I also called [phone], no answer, no voice mail set up. documented in this encounter* Merry Barba LPN - 01/18/2020 8:31 AM EDT Error documented in this encounter* Lena Hill CNP - 09/21/2019 9:13 AM EST Carmen Sb Gilman 1965 CC: 54 y.o. is a [...] Anxiety Asthma COPD (chronic obstructive pulmonary disease) ([facility]) Diabetes ([facility]) Hypertension Past Surgical History: Procedure Laterality Date [...] file Gets together: Not on file Attends jew service: Not on file Active member of [...] he tells me he is doing ok, coming along slowly . The swelling is better w elevation and ice. He denies any constipation/n. He is taking 325mg ASA bid and 20mg Protonixqd. documented in this encounter* Daria Dumont LPN - 01/11/2020 11:21 AM EDT Jahaira from [facility] called patient is c/o 05/31 for right TKR . Worried about running out of pain medication due to the . I spoke with Jahaira told her I [...] FoundDocuments on File Type Date Recorded Patient Lead Nurse Expl anation Advance Directives and Livin g Will 04/03/2019 8:34 AM Documents on File Type Date Recorded Patient Lead Nurse Expl anation Advance Directives and Livin g Will 09/21/2019 8:34 AM Documents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 in this encounter ED PROVIDER NOTE [facility] EMERGENCY DEPARTMENT NAME: Carmen Gilman AGE: 55 y.o. : 1965 VISIT DATE: 11/01/2020 CSN: [id number] PCP: Mari dHz MD Chief Complaint Patient presents with Shortness of Breath This is a 55-year-old reason for historian with history of COPD, diabetes, hypertension and opioid dependence as well as history of asthma who is coming to emergency room with complaints of shortness of breath which started couple days ago. He denies cough or fever, chills, runny nose/nasal congestion or sore throat associated with this. Patient denies chest or abdominal pain associated with this. He states he feels fatigued. Patient states my mom is a chain smoker and has been staying with her less several days and does have the shortness of breath started. He states he is to be smoker but quit in the past. Past Medical History: Diagnosis Date Anxiety Arrhythmia Arthritis Asthma COPD (chronic obstructive pulmonary disease) ([facility]) Diabetes ([facility]) Hypertension Opioid dependence ([facility]) Past Surgical History: Procedure Laterality Date APPENDECTOMY [...] file Gets together: Not on file Attends jew service: Not on file Active member of [...] ms QTC Calculation (Bezet) 432 ms P Bison 75 degrees R Bison 65 degrees T Bison 66 degrees CBC Auto Differential Result Value [...] Associated Order(s): EKG 12-lead PCP - Mari Hdz MD Chief Complaint Patient presents with Cough [...] Arthritis Asthma COPD (chronic obstructive pulmonary disease) ([facility]) Diabetes ([facility]) Hypertension Opioid dependence ([facility]) Past Surgical History Past Surgical History: Procedure [...] Allergies No Known Allergies Medications Carmen Gilman Home Medication Instructions Prior to Surgery [id number] Printed on:12/03/20 2275 Medication Information Take last dose on Take [...] Procedure Abnormality Status --------- ------ CBC Auto Differential[[id number]] Abnormal Final result CBC and Diff Morphology[[id number]] Abnormal Final result Please view results for [...] ST segments. Normal EKG. Maury Garcia DO 12/03/201335 Pt C/o cough with phlegm production and SOB that started yesterday. Pt took inhaler at home with no relief. EMS provided pt with albuterol nebulizer treatment SOFTWARE SYSTEMS ARCHITECT. documented in this encounter Sofía Dukes MD - 01/08/2020 6:50 AM EDTBSofía craig MD - 01/04/2020 3:35 PM EDTCVenancio faulkner MD - 07/08/2020 1:21 AM EST H&P Notes (unrecognized sect ion and content) INTERVAL HISTORY AND PHYSICAL Patient Name: Carmen Gilman Admit Date: MR #: [id number] : 1965 The H&P has been reviewed [...] a Lalito robotic-assisted total knee replacement using Sebastian Total Knee Replacement System. I did a [...] does understand this. documented in this encounter [facility] Inpatient H&P 07/08/2020 Venancio Quiros MD [facility] Patient: Carmen Gilman Date of : 1965 (54 y.o.) PCP: Mari Hdz MD ASSESSMENT/PLAN: Carmen Gilman 54 y.o. male with: Principal Problem: Acute exacerbation of chronic obstructive pulmonary disease (COPD) ([facility]) Active Problems: Acute on chronic respiratory failure with hypoxia and hypercapnia (HCC) Atrial fibrillation with rapid ventricular response (HCC) Acute congestive heart failure (HCC) Essential hypertension Type 2 diabetes mellitus, without long-term current use of insulin ([facility]) Morbid obesity with BMI of 40.0-44.9, adult ([facility]) PLAN: Inpatient admission to critical care. Cardiac monitoring. Vent support. Pain/sedation protocol with fentanyl and propofol. Early mobility protocol. Dental Practitioner referral for tube feed recommendations. KUB to confirm OG tube placement. Tavera for accurate UOP monitoring. Director Of Community Education consult. Steroids, DuoNebs, Pulmicort, azithromycin. Sputum and [...] the vent. Past Medical History: Diagnosis Date Anxiety Arthritis [...] VOLUME 500 PEEP 5 RESP RATE 16 [id number] 66.6 mm Hg POC Arterial Blood Gas [...] VOLUME 500 PEEP 5 RESP RATE 16 [id number] 66.6 mm Hg Lactic Acid, Plasma Collection [...] abnormality Abnormal ECG Vent. rate 150 BPM OR interval * ms QRS duration 88 ms [...] MEDICINE HISTORY AND PHYSICAL 12/04/2020 Felipe Sinha, [facility] Patient: Carmen Gilman Date of : 1965 (55 y.o.) PCP: Mari Hdz MD ASSESSMENT/PLAN: COPD with acute exacerbation (HCC) Mr. Gilman is a very pleasant 55-year-old male with a past medical history significant for hypertension, type 2 diabetes mellitus, and known COPD who was hospitalized within the last year with an acute exacerbation of COPD that was severe requiring intubation and mechanical ventilation at that time. The patient presents to [place] emergency room yesterday with severe shortness of [...] complication, without long-term current use of insulin ([facility]) Patient currently not on antihyperglycemic medications and will continue to monitor closely since he will be on IV steroids at this time. Essential hypertension Blood pressures currently well controlled on current regimen of diltiazem 240 mg daily and lisinopril 20 mg daily. Opioid dependence ([facility]) Patient denies any illicit drug use and is currently on Suboxone 8 mg twice daily. We will continue and monitor closely. SUBJECTIVE: Chief Complaint/Reason for Visit: HISTORY OF PRESENT ILLNESS: Carmen Gilman is a 55 y.o. male admitted to [facility]. REVIEW OF SYSTEMS: Constitutional:No fever, no weight [...] Arthritis Asthma COPD (chronic obstructive pulmonary disease) ([facility]) Diabetes ([facility]) Hypertension Opioid dependence ([facility]) Past Surgical History: Procedure Laterality Date APPENDECTOMY [...] Shira Armstrong, OT - 01/08/2020 3:44 PM Sandra Doeee, PT - 01/08/2020 2:07 PM BertinJudith, ENERGY EFFICIENCY SPECIALIST - 01/08/2020 1:38 PM Rosaline Ashraf, ENERGY EFFICIENCY SPECIALIST - 07/09/2020 3:45 PM EST Consult Notes [...] barrier, family / caregiver support is a blood coordinator for return to prior level of function. The patient's compliance is a blood coordinator, awareness of own capacity and performance is a blood coordinator to return to prior level of function. [...] Cane Prior Level of Function Level of [place]: Needs assistance with ADLs, Needs assistance with functional transfers, Needs assistance with homemaking Lives With: Significant other Receives Help From: Family ADL Assistance: Needs assistance Dressing: Minimal Homemaking Assistance: Needs assistance Homemaking Assistance Comments: Total Vocational: On disability Comments: Mod indep with cane for short distances. SO assists with bed mobility and LB dressing. Patient reports to perform own bathing and toileting, as best I can. Past Medical History: Diagnosis Date Anxiety Arthritis [...] Intervention: Patient moved sit to stand at several times during LB dressing, given extra time and cues for hand placement. SBA toilet transfer with use of rails, extra time. Request for toilet riser for home use obtained from [facility] for in-room delivery. Patient planning to [...] and SOB. Transfers Sit to Stand: Min Quality Controller: Wheeled walker Skilled Intervention: Vc for hand [...] Cane Prior Level of Function Level of [place]: Needs assistance with ADLs, Needs assistance with homemaking Lives With: Significant other Receives Help From: Family Comments: Pt ambulates short distances with cane at OF. His S/O reports he hardly walks at [...] Gilman Date of : 1965 Sex: Male Capriccia, Physician Assistant, met with the patient today after his right knee replacement surgery and confirmed the plan that was set during [facility]. The patient will return home with services from [facility]. Secure note sent to Sho [...] Facility Type: Home care [facility] Assessment: Met with the patient during [facility] [...] difficulty with mobility and may need a retirement facility at discharge. The patient wants to have [facility] at discharge, a referral will be made. The patient will need a wheeled walker after surgery and would like to have the equipment from [facility]). Will fax the request and face sheet to [facility]. Verified patient s address and [...] assistance Transfers Sit to Stand: Contact guard Quality Controller: Wheeled walker Gait/Locomotion Gait Assistance: Contact guard [...] Walker Prior Level of Function Level of [place]: Needs assistance with ADLs Lives With: Spouse [...] deficit. The patient's home setup is a blood coordinator for return to prior level of function. The patient's education level is a blood coordinator to return to prior level of function. [...] Raised Prior Level of Function Level of [place]: Needs assistance with ADLs Lives With: Spouse [...] ASSOCIATES Patient Name: Carmen Gilman MR #: [id number] : 1965 Requesting physician: martina Reason for consult: edema Impression: 1. Edema [...] file Gets together: Not on file Attends jew service: Not on file Active member of [...] Units 07/08/20 0931 07/08/20 0230 07/08/20 0156 07/07/203 07/07/20 2243 WBC K/mcL 8.61 -- 5.04 [...] Gilman Date of : 1965 Site: [facility] Referring Provider: Refer to consult order [...] Full Code Associated Order(s): IP CONSULT TO LEAD JAVA DEVELOPER ARCHITECT CRITICAL CARE CONSULT 07/08/2020 Patient: Carmen Gilman Date of : 1965 Site: [facility] Referring Provider: Refer to consult order [...] in EMR where patient has seen a Automatic Pinsetter Mechanic. Additional history of HTN, prior heroin abuse [...] mg 0.5 mg Nebulization BID Jessenia Ferrer, [facility],PharmD 0.5 mg at 07/08/20 0824 chlorhexidine (PERIDEX) 0.12 % solution 15 mL 15 mL Swab BID Venancio Quiros MD 15 mL at 07/08/20 0856 diltiazem (CARDIZEM) 125 mg in sodium chloride infusion 0-15 mg/hr Intravenous Continuous Venancio Quiros MD Stopped at 07/08/20 0753 famotidine (PEPCID) tablet 20 mg 20 mg Oral Q12H CASSIUS Venancio Quiros MD 20 mg at 07/08/20 0856 fentaNYL (SUBLIMAZE) injection 50-100 mcg 50-100 mcg Intravenous Q5 Min PRN Venancio Quiros MD 100 mcg at 07/08/20 0755 furosemide (LASIX) injection 40 mg 40 mg Intravenous Q12H [facility] Venancio Quiros MD 40 mg at [...] solution 3 mL 3 mL Inhalation Q4H [facility] Venancio Quiros MD 3 mL at 07/08/20 0816 lidocaine 10 mg/mL (1 %) injection 1 mL 1 mL Intradermal Once PRN Carina Green CNP magnesium hydroxide (MOM) 400 mg/5 mL suspension 2,400 mg 30 mL Oral Daily PRN Venancio Quiros MD methylPREDNISolone sod suc(PF) (SOLU-medrol) 40 mg 40 mg Intravenous Q8H [facility] Venancio Quiros MD 40 mg at [...] injection 0.4 mg 0.4 mg Intravenous PRN eVnancio Quiros MD norepinephrine (LEVOPHED) 4 mg in [...] rocuronium (ZEMURON) injection Intravenous Code/Trauma/Sedation Med Kinsey Hannah Ignacio MD 50 mg at 07/08/20 0109 senna-docusate (SENNA-S) 8.6-50 mg per tablet 1 tablet 1 tablet Oral BID Venancio Quiros MD 1 tablet at 07/08/20 0856 sodium chloride (PF) (NS) flush 10 mL 10 mL Intracatheter Q8H [facility] Carina Green CNP sodium chloride (PF) (NS) flush 10-20 mL 10-20 mL Intracatheter PRN Carina eTreza Green CNP sodium chloride (PF) (NS) flush [...] General Cardiology Inpatient Consult Heart & Vascular [facility] 07/08/2020 Memo Bernstein MD [facility] Patient: Carmen Gilman Date of : 1965 (54 y.o.) Referring Provider: No ref. provider found PCP: Mari Hdz MD Assessment/Plan: Acute congestive heart failure (HCC) Assessment & Plan I do not believe this was acute systolic or diastolic heart failure. Echo reviewed and noted. Atrial fibrillation with rapid ventricular response (HCC) Assessment & Plan Now converted, will check EKG. Continue IV heparin at this time. [id number] is 2, consideration for long-term oral anticoagulation. Acute on chronic respiratory failure with hypoxia and hypercapnia (HCC) Assessment & Plan Discussed with food and beverage lead at bedside. CT PE study is being [...] 30 mL 30 mL Oral Q4H PRN Vneancio Quiros MD aspirin chewable tablet 81 mg [...] mg 0.5 mg Nebulization BID Jessenia Ferrer [facility],PharmD 0.5 mg at 07/08/20 0824 chlorhexidine (PERIDEX) 0.12 % solution 15 mL 15 mL Swab BID Venancio Quiros MD 15 mL at 07/08/20 0856 diltiazem (CARDIZEM) 125 mg in sodium chloride infusion 0-15 mg/hr Intravenous Continuous Venancio Quiros MD Stopped at 07/08/20 0753 famotidine (PEPCID) tablet 20 mg 20 mg Oral Q12H [facility] Venancio Quiros MD 20 mg at 07/08/20 0856 fentaNYL (SUBLIMAZE) injection 50-100 mcg 50-100 mcg Intravenous Q5 Min PRN Venancio Quiros MD 100 mcg at 07/08/20 0755 furosemide (LASIX) injection 40 mg 40 mg Intravenous Q12H [facility] Venancio Quiros MD 40 mg at [...] 10 mL Intravenous Once in imaging Carina Green, RODRIGUE And sodium chloride (PF) (NS) 0.9 % contrast line flush 80 mL 80 mL Intravenous Once in imaging Carina Green CNP And iopamidoL (ISOVUE-370) 76 % injection 75 mL 75 mL Intravenous Once in imaging Carina Green CNP ipratropium-albuteroL (DUO-NEB) 0.5-2.5 mg/3 ml nebulizer solution 3 mL 3 mL Inhalation Q4H [facility] Venancio Quiros MD 3 mL at 07/08/20 0816 lidocaine 10 mg/mL (1 %) injection 1 mL 1 mL Intradermal Once PRN Carina Green CNP magnesium hydroxide (MOM) 400 mg/5 mL suspension 2,400 mg 30 mL Oral Daily PRN Venancio Quiros MD methylPREDNISolone sod suc(PF) (SOLU-medrol) 40 mg 40 mg Intravenous Q8H [facility] Venancio Quiros MD 40 mg at [...] 0916 rocuronium (ZEMURON) injection Intravenous Code/Trauma/Sedation Med Kinsey [...] he wished to speak to the social media marketer. Met with the patient bedside, he asks that this worker reach out to the apartment where he completed an application. VM left with apartment complex. Patient's phone charged for him. Discharge Planning Living Arrangements: Friends Support Systems: shopper insights manager/social media marketer Assistance Needed: none Type of Residence: Homeless(living on friends couch in the [facility]) Prior to Admission Home Care Services: No documented in this encounter Emi Vásquez RN - 01/08/2020 6:55 AM EDTREmi cheek RN - 01/08/2020 6:41 AM EDTREmi cheek RN - 01/08/2020 6:22 AM EDT Nursing [...] PACU without intraoperative complications. D 01/08/2020 08:42 [id number] 01/08/2020 09:04 MCB/MODL Brief Post Operative Note Patient Name: Carmen Gilman : 1965 (54 y.o.) Date of Service: 01/08/2020 CSN: [id number] Procedure(s): Right Total Knee Replacement Robotic Pre-Operative Diagnoses: * Primary osteoarthritis of right knee [M17.11] Post-Operative Diagnoses: * Same as Pre-Op Diagnosis * Primary osteoarthritis of right knee [M17.11] Surgeon(s) and Role: * Sofía Dukes MD - Primary Anesthesiologist: Paulino Helton MD CORRESPONDENCE CLERK: Carolina Lai CRNA Mountain Bike Guide: Marissa Gagnon RN Scrub Person: ST Laila [...] Implant Name Type Inv. Item Serial No. Senior Designer Lot No. LRB No. Used Action BASEPLATE SZ5 TIBIAL TRITANIUM TRIATHLON - [id number] BASEPLATE SZ5 TIBIAL TRITANIUM TRIATHLON JODI OR [id number] Right 1 Implanted INSERT SZ5-10 TIBIAL CR X3 TRIATHLON [id number] - [id number] INSERT SZ5-10 TIBIAL CR X3 TRIATHLON [id number] JODI OR [id number] Right 1 Implanted COMPONENT SZ5 FEM CR RT CEMENTLESS BEADED W/PA TRIATHLON - [id number] COMPONENT SZ5 FEM CR RT CEMENTLESS BEADED W/PA TRIATHLON JODI OR [id number] Right 1 Implanted PATELLA 35MM ASYMMETRIC METAL-BACKED TRITANIUM TRIATHLON - [id number] PATELLA 35MM ASYMMETRIC METAL-BACKED TRITANIUM TRIATHLON JODI [...] unaware of palpitations or rapid heart action. Squad was called with the history as previously [...] Outcome: Partially Met Problem: Restraint Use - Nonviolent/Qzh-Sfnb-Sdjsipkeufg Behavior Goal: Absence of restraint indications 07/08/20201940 [...] with hypoxia and hypercapnia (HCC) Discussed with food and beverage lead at bedside. CT PE study is being ordered. Associated Problem(s): Acute congestive heart failure (HCC) I do not believe this was acute systolic or diastolic heart failure. Echo reviewed and noted. Associated Problem(s): Atrial fibrillation with rapid ventricular response (HCC) Now converted, will check EKG. Continue IV heparin at this time. [id number] is 2, consideration for long-term oral anticoagulation. Patient family contact numbers: Kassie Parks (dtr) Aliyah Gilman (sister) Calin Mukul (brother) Meri Gilman (mother) Focusing on patient safety and device maintenance during shift. POC initiated. THC Physician - Brief Progress Note PERMANENT 07/08/2020 01:50 [facility] CARMEN GILMANFrancesca Date of Service 07/08/2020 01:50 HPI/Events of [...] with signage outside this patient's room. This day care aide performs hand hygiene and enters the patient [...] at that time. The patient presents to [place] emergency room yesterday with severe shortness of [...] HH OASIS Star t of Care Discipline -Prison Problems Problem Start Date Status Goals Interventions Abnormal Findings Disciplines: Prison, Physical Therapy, Occupational Therapy, Speech Therapy, Home Health Aide, Medical Social Work, Spiritual Care, Art Therapy, Massage Therapy, Registered Dietitian, Student - Medical Social Work 01/09/2020 Active 1 goal linked to scheduled/documented intervention 1 goal intervention scheduled/documented in this visit Home Medication Management Disciplines: Prison 01/09/2020 Active 1 goal linked to scheduled/documented intervention 4 goal interventions scheduled/documented in this visit Learning/Teaching Needs - Joint Replacement Disciplines: Prison 01/09/2020 Active 1 goal linked to scheduled/documented intervention 6 goal interventions scheduled/documented in this visit Pain Management Disciplines: Prison 01/09/2020 Active 1 goal linked to scheduled/documented intervention 1 goal intervention scheduled/documented in this visit Risk of Falls Disciplines: Prison, Physical Therapy, Occupational Therapy, Speech Therapy, Home Health Aide, Medical Social Work, Spiritual Care, Art Therapy, Massage Therapy, Registered Dietitian, Student - Medical Social Work 01/09/2020 Active 1 goal linked to scheduled/documented intervention 1 goal intervention scheduled/documented in this visit Skilled Assessment Disciplines: Prison 01/09/2020 Active 1 goal linked to scheduled/documented [...] Problem:Skilled Assessment Goal:Rehospitalization joint replacement goal Scheduled SN/FRUIT CULLER obtain vital signs Problem:Skilled Assessment Goal:Rehospitalization joint [...] scheduled/documented in this visit Abnormal Findings Disciplines: Prison, Physical Therapy, Occupational Therapy, Speech Therapy, Home [...] in this visit Risk of Falls Disciplines: Prison, Physical Therapy, Occupational Therapy, Speech Therapy, Home [...] risk goal Scheduled Visit Details Visit Type -CRANE MANAGER HH Missed Vi sit Discipline -Prison Visit Details Visit Type -SN HH Routine Vi sit Discipline -Prison Interventions Intervention Associated Problem/Goal Status Variance Visit [...] Assessment Goal:Rehospitalizati on joint replacement goal Completed SN/FRUIT CULLER obtain vital signs Problem:Skilled Assessment Goal:Rehospitalizati on joint replacement goal Completed Teaching - disease process Problem:Skilled Assessment Goal:Rehospitalizati on joint replacement goal Completed Visit Details Visit Type -SN HH PRN/On-Drea l Visit Discipline -Prison Visit Details Visit Type -SOFTWARE SYSTEMS ARCHITECT Routine Visi t Discipline -Physical Therapy Goals [...] Pain Management Goal:Pain management education goal Completed SOFTWARE SYSTEMS ARCHITECT educated pt. with pain management techniques such as icing, elevation, resting, stretching, and taking prescribed pain medication before or after activities to reduce pain and optimize daily physical functioning. Pt. able to exhibit a good understanding with the information provided by SOFTWARE SYSTEMS ARCHITECT. Report abnormal assessment to physician Problem:Abnormal Findings [...] Decreased Strength Goal:Strength PT Ortho goal Completed SOFTWARE SYSTEMS ARCHITECT provided skilled prompting on correcting proper strengthening [...] Home Exercise Program Goal:HEP education goal Completed SOFTWARE SYSTEMS ARCHITECT demonstrated, instructed, and provided pictorial cues of HEP exercises to improve independence and confidence. SOFTWARE SYSTEMS ARCHITECT also educated pt. with the importance of performing HEP on a daily basis to increase strength and tolerance with ADLs and to improve therapy outcome. PT transfer training Problem:PT19- Decreased Transfer Ability Goal:Transfer goal Completed SOFTWARE SYSTEMS ARCHITECT facilitated with verbal and tactile cues to [...] Ambulation Ability Goal:Ambulation PT Ortho goal Completed SOFTWARE SYSTEMS ARCHITECT facilitated pt. with ambulation to improve confidence and independence with home mobility. Pt. able to ambulate in home for 60 ft. safely with FWW. Pt. stated increased right knee pain with ambulation. SOFTWARE SYSTEMS ARCHITECT provided verbal cues to improve antalgic gait. Pt. instructed to decrease step length to improve step pattern from a step to pattern to a reciprocal gait pattern. Assess/Instruct in balance and fall prevention techniques Problem:PT24- Decreased Balance/Increased Fall Risk Goal:Balance/Fall risk PT Ortho goal Completed SOFTWARE SYSTEMS ARCHITECT reviewed fall prevention strategies with pt. to avoid the risk of falls. Pt. complying by reporting no falls on this date. Instruct on fall prevention Problem:Risk of Falls Goal:Balance/Fall risk goal Completed SOFTWARE SYSTEMS ARCHITECT reviewed environmental fall risk factors and the proper use of walking aids to improve good stability. SOFTWARE SYSTEMS ARCHITECT also emphasized the importance of proper lighting/nightlight, proper footwear, make sure of a clutter free pathway, and to be aware of surrounding. Watch for trip hazards and uneven surfaces. Avoid walking when dizzy or weak. Patient demonstrated a good understanding. Visit Details Visit Type -CRANE MANAGER Routine Discipline -Prison Interventions Intervention Associated Problem/Goal Status Variance Visit [...] Assessment Goal:Rehospitalizati on joint replacement goal Completed SN/FRUIT CULLER obtain vital signs Problem:Skilled Assessment Goal:Rehospitalizati on joint replacement goal Completed Teaching - disease process Problem:Skilled Assessment Goal:Rehospitalizati on joint replacement goal Completed Visit Details Visit Type -SOFTWARE SYSTEMS ARCHITECT Missed Visit Discipline -Physical Therapy Problems Problem Start Date Status Goals Interventions AP02- Decreased Knowledge of Pain Management Disciplines: Physical Therapy 01/09/2020 Active 1 goal linked to scheduled/documented intervention 1 goal intervention scheduled/documented in this visit Abnormal Findings Disciplines: Prison, Physical Therapy, Occupational Therapy, Speech Therapy, Home [...] in this visit Risk of Falls Disciplines: Prison, Physical Therapy, Occupational Therapy, Speech Therapy, Home [...] Pain Management Goal:Pain management education goal Completed SOFTWARE SYSTEMS ARCHITECT reviewed pain management techniques with pt. to [...] Decreased ROM Goal:Range of motion goal Completed SOFTWARE SYSTEMS ARCHITECT instructed pt. to perform heel slides and standing anterior mini lunges on 6 inch step to increase knee flexion by breaking up scar tissue. Pt. AROM (0-80 degrees) PT muscle re-education Problem:PT14- Decreased Strength Goal:Strength PT Ortho goal Completed SOFTWARE SYSTEMS ARCHITECT provided skilled prompting on correcting proper strengthening [...] Home Exercise Program Goal:HEP education goal Completed SOFTWARE SYSTEMS ARCHITECT reviewed HEP with emphasis on full joint ROM to improve strength, increase joint articulation to reduce muscle tightness with transfers. SOFTWARE SYSTEMS ARCHITECT also educated pt. with the importance of performing HEP on a daily basis to increase strength and tolerance with ADLs and to improve therapy outcome. Pt. exhibited a good understanding and recall of HEP with pictorial cues. PT transfer training Problem:PT19- Decreased Transfer Ability Goal:Transfer goal Completed SOFTWARE SYSTEMS ARCHITECT facilitated with verbal and tactile cues to [...] Ambulation Ability Goal:Ambulation PT Ortho goal Completed SOFTWARE SYSTEMS ARCHITECT provided verbal cue to concentrate with heel to toe stepping and over flexing R knee during swing phase to increase knee ROM and step height. Pt. able to ambulate inside home and outside home with FWW with good stability and maneuverability. Assess/Instruct in balance and fall prevention techniques Problem:PT24- Decreased Balance/Increased Fall Risk Goal:Balance/Fall risk PT Ortho goal Completed SOFTWARE SYSTEMS ARCHITECT reviewed fall prevention strategies with pt. to avoid the risk of falls. Pt. complying by reporting no falls on this date Instruct on fall prevention Problem:Risk of Falls Goal:Balance/Fall risk goal Completed SOFTWARE SYSTEMS ARCHITECT assisted with verbal cues with 30 second [...] Assessment Goal:Rehospitalizati on joint replacement goal Completed SN/FRUIT CULLER obtain vital signs Problem:Skilled Assessment Goal:Rehospitalizati on [...] scheduled/documented in this visit Abnormal Findings Disciplines: Prison, Physical Therapy, Occupational Therapy, Speech Therapy, Home [...] in this visit Risk of Falls Disciplines: Prison, Physical Therapy, Occupational Therapy, Speech Therapy, Home [...] scheduled/documented in this visit Abnormal Findings Disciplines: Prison, Physical Therapy, Occupational Therapy, Speech Therapy, Home [...] in this visit Risk of Falls Disciplines: Prison, Physical Therapy, Occupational Therapy, Speech Therapy, Home [...] Pain Management Goal:Pain management education goal Completed SOFTWARE SYSTEMS ARCHITECT educated pt. with pain management techniques to reduce or manage pain. SOFTWARE SYSTEMS ARCHITECT provided verbal and tactile cues for stretching right knee. SOFTWARE SYSTEMS ARCHITECT emphasized the importance of ice, elevation, rest [...] Home Exercise Program Goal:HEP education goal Completed SOFTWARE SYSTEMS ARCHITECT educated pt. with the importance of performing HEP on a daily basis to increase strength and tolerance with ADLs and to improve therapy outcome. Pt. exhibited a good understanding of HEP exercises. PT transfer training Problem:PT19- Decreased Transfer Ability Goal:Transfer goal Completed SOFTWARE SYSTEMS ARCHITECT instructed pt. to perform STSs from different seated surface levels to promote confidence, strength, and independence with home mobility. Pt. demonstrates safe transfer abilities with good stability using UE support. Assess/Instruct in safe gait techniques in home. Problem:PT20- Decreased Ambulation Ability Goal:Ambulation PT Ortho goal Completed SOFTWARE SYSTEMS ARCHITECT assisted pt. with ambulation by facilitating with verbal cues to step closer to rollator to correct posture, concentrate with increasing R knee flexion and heel strike with R foot during swing phase to improve stability. Pt. ambulated in home 60 ft. with FWW with good stability. SOFTWARE SYSTEMS ARCHITECT provided skilled prompting with sequencing with cane and step pattern. Pt. able to perform with good stability and sequencing. Assess/Instruct in balance and fall prevention techniques Problem:PT24- Decreased Balance/Increased Fall Risk Goal:Balance/Fall risk PT Ortho goal Completed SOFTWARE SYSTEMS ARCHITECT assisted with improving standing stability with verbal and tactile cues to widen AVA and to correct posture to get center of mass over their AVA. Pt. able to reach across midline without UE support with wide base but demonstrated instability with narrow stance. Instruct on fall prevention Problem:Risk of Falls Goal:Balance/Fall risk goal Completed SOFTWARE SYSTEMS ARCHITECT educated pt. with fall prevention and balancing techniques to eliminate fall risk, lead pt. to safe transfers, and improve stability outside of home and in the community. Visit Details Visit Type -SN HH Non-OASIS/ Discipline DC Discipline -Prison Problems Problem Start Date Status Goals Interventions Abnormal Findings Disciplines: Prison, Physical Therapy, Occupational Therapy, Speech Therapy, Home Health Aide, Medical Social Work, Spiritual Care, Art Therapy, Massage Therapy, Registered Dietitian, Student - Medical Social Work 01/09/2020 Resolved on 01/25/2020 1 goal linked to scheduled/documente d intervention 1 goal intervention scheduled/documented in this visit Home Medication Management Disciplines: Prison 01/09/2020 Resolved on 01/25/2020 1 goal linked to scheduled/documente d intervention 4 goal interventions scheduled/documented in this visit Learning/Teaching Needs - Joint Replacement Disciplines: Prison 01/09/2020 Resolved on 01/25/2020 1 goal linked to scheduled/documente d intervention 6 goal interventions scheduled/documented in this visit Pain Management Disciplines: Prison 01/09/2020 Resolved on 01/25/2020 1 goal linked to scheduled/documente d intervention 1 goal intervention scheduled/documented in this visit Risk of Falls Disciplines: Prison, Physical Therapy, Occupational Therapy, Speech Therapy, Home Health Aide, Medical Social Work, Spiritual Care, Art Therapy, Massage Therapy, Registered Dietitian, Student - Medical Social Work 01/09/2020 Resolved on 01/25/2020 1 goal linked to scheduled/documente d intervention 1 goal intervention scheduled/documented in this visit Skilled Assessment Disciplines: Prison 01/09/2020 Resolved on 01/25/2020 1 goal linked [...] ER. Narratives Lying on air matress in [facility]. Assessment done. alert and oriented. c/o pain in Rt knee rated at a 5/10. is taking pain medication. Is obese. is wanting a cane. this RN contacted Merry and she is going to send a script to [facility]. Dressing to Rt knee saturated from his [...] On Tue02/02/21 at 1635, For 1 dose 1741 (Given - Provid er: Carlita Domingo RN) naproxen (NAPROSYN) tablet 500 mg (COMPLETED) 500 mg, Oral, Once, On Tue02/02/21 at 1635, For 1 dose, Give with Food 1741 (Given - Provid er: Carlita Domingo RN) traMADoL (ULTRAM) tablet 50 mg (COMPLETED) 50 mg, Oral, Once, On Tue02/02/21 at 1635, For 1 dose 1741 (Given - Provid er: Carlita Domingo RN) Scheduled Medication Order 11/13/2021 11/14/2021 11/15/2021 albumin human 25 % injection 50 g (COMPLETED) 50 g, Intravenous, Administer over 60 Minutes, EVERY 6 HOURS, 3 doses, First dose on Tue11/13/21 at 0815, Last dose on Tue11/13/21 at 1800, At [facility], in emergencies, administer as rapidly as [...] 0920 (Given - Provider: Erickson Canseco RN) 08 (Given - Provider: Jung Hill RN) 0809 (Given - Provider: Priscilla Mcnally RN) budesonide (PULMICORT) nebulizer suspension 0.5 mg 0.5 mg, Inhalation, 2 TIMES DAILY, First dose on Tue11/13/21 at 1700, Until Discontinued 1601 (Not Given - Provider: Indira Portillo RRT - Reason: Other - Comment: Due 7a and7p)191 (Given - Provider: Molly Beatty RCP) 0726 (Given - Provider: Jumana Torres RCP)1926 (Given - Provider: Allie Reyes, JORGE) 0800 (Given - Provider: Jumana Torres RCP) buprenorphine (SUBUTEX) sublingual tablet 8 mg (CANCELED) 8 mg, Sublingual, DAILY, First dose on Tue11/13/21 at 1545, Until Discontinued, Place tablet under patient tongue until dissolved. Swallowing reduces bioavailability. 1634 (Given - Provider: Erickson Canseco RN) 08 (Given - Provider: Jung Hill RN) buprenorphine (SUBUTEX) sublingual tablet 8 mg 8 mg, Sublingual, 2 TIMES DAILY, First dose (after last modification) on Tue11/14/21 at 1845, Until Discontinued, Place tablet under patient tongue until dissolved. Swallowing reduces bioavailability. 184 (Given - Provider: Jung Hill RN) 0809 (Given - Provider: Priscilla Mcnally, KELLY) enOXAParin (LOVENOX) injection 40 mg 40 mg, Subcutaneous, DAILY, First dose on Tue11/13/21 at 2100, Until Discontinued, Indications: DVT/PE prophylaxis 2041 (Given - Provider: Marcin Moran RN) 2117 (Given - Provider: Katelyn Breen, KELLY) furOSEmide (LASIX) injection 40 mg 40 mg, Intravenous, EVERY 12 HOURS, First dose on 11/14/21 at 1115, Until Discontinued, Administer by slow IV push at a rate not exceeding 40mg/min 1139 (Given - Provider: Jung Hill RN)2118 (Given - Provider: Katelyn Breen, KELLY) 08 (Given - Provider: Priscilla Mcnally RN) gabapentin (NEURONTIN) capsule 300 mg 300 mg, Oral, 3 TIMES DAILY, First dose on 11/14/21 at 1400, Until Discontinued 1352 (Given - Provider: Jung Hill RN)2117 (Given - Provider: Katelyn Breen RN) 808 (Given - Provider: Priscilla Mcnally RN)1400 (Canceled [...] Ulcer Prophylaxis 0920 (Given - Provider: Erickson Canseco, RN) 0817 (Given - Provider: Jung Hill, RN) 0809 (Given - Provider: Priscilla Mcnally, RN) potassium chloride (K-DUR) tablet ER 40 [...] medications 0738 (See Alternative - Provider: Jung Hill RN) 0810 (See Alternative - Provider: Priscilla [...] Mckenzie RN)1300 ($$New Bag$$ - Provider: Erickson Canseco RN)1800 (Rate/Dose Verify - Provider: Erickson Canseco RN)2051 [...] 24 hours. 0817 (Given - Provider: Jung Hill, RN)1352 (Given - Provider: Jung Hill RN) 0100 (Given - Provider: Katelyn Breen RN)0736 (Given - Provider: Priscilla Mcnally RN) ipratropium-albuterol (DUONEB) 0.5-2.5 (3) MG/3ML nebulizer solution 3 mL 3 mL, Nebulization, EVERY 4 HOURS NEEDED, Starting on 11/13/21 at 1550, Until 11/15/21 at 1419, Shortness of Breath 1558 (Given - Provider: Indira Portillo, JORGE)2359 (Given - Provider: Molly Beatty RCP) 0727 (Given - Provider: Jumana Torres RCP)1928 (Given - Provider: Allie Reyes RRT) 0800 (Given - Provider: Jumana Torres RCP) ketorolac (TORADOL) injection 30 mg (CANCELED) 30 mg, Intravenous, EVERY 6 HOURS NEEDED, Starting on 11/13/21 at 0802, Until 11/14/21 at 0830, Moderate [...] Oral, EVERY 4 HOURS NEEDED, Starting on 11/13/21 at 0516, Until 11/13/21 at 1409, Moderate Pain, 0521 (Given - Provider: Jojo Mckenzie RN) oxyCODONE-acetaminophen (PERCOCET) 5-325 MG per tablet 1 tablet (CANCELED) 1 tablet, Oral, EVERY 4 HOURS NEEDED, Starting on Tue11/13/21 at 1408, Until 11/14/21 at 1357, Severe Pain, 2053 (Given - Provider: Marcin Moran, KELLY) 0454 (Given - Provider: Marcin Moran RN) [...] OR CHEW. 2107 (Given - Provider: Damion Hernandez RN) 843 (Given - Provider: Ema Sánchez, RN) budesonide-formoteroL (SYMBICORT) 160-4.5 mcg/actuation inhaler 2 puff 2 puff, Inhalation, 2 times daily (RT), First dose on Tue04/20/22 at 2100, SPACER REQUIRED FOR ADMINISTRATION 2229 (Given - Provider: Damion Hernandez RN) 841 (Given - Provider: Ema Sánchez, KELLY) buprenorphine HCL (SUBUTEX) SL tablet 8 mg 8 mg, Sublingual, 2 times daily, First dose on Tue04/20/22 at 2100, Verify patient has received Patient Med Guide for Subutex., Indication: Treatment of opioid dependence, Is this a continuation of home therapy? Yes 2105 (Given - Provider: Damion Hernandez RN) 843 (Given - Provider: Ema Sánchez, KELLY) clonazePAM (KLONOPIN) tablet 1 mg (CANCELED) 1 mg, Oral, 4 times daily, First dose on Tue04/20/22 at 2100, CATEGORY D HAZARDOUS DRUG use safe handling precautions. Use reference link to view PPE guidelines. Minimize crushing/splitting only to situations where clinically necessary. 2105 (Given - Provider: Damion Hernandez RN) 843 (Given - Provider: Ema Sánchez, KELLY) diazePAM (VALIUM) tablet 10 mg 10 mg, Oral, Every 8 hours scheduled, First dose on Tue04/21/22 at 1400 gabapentin (NEURONTIN) capsule 300 mg 300 mg, Oral, Every 12 hours scheduled, First dose on Tue04/20/22 at 2100 210 (Given - Provider: Damion Hernandez RN) 0844 (Given - Provider: Ema Sánchez, KELLY) heparin (porcine) injection 5,000 Units 5,000 Units, Subcutaneous, Every 8 hours scheduled, First dose on Tue04/20/22 at 2200, Notify physician if patient refuses. 210 (Given - Provider: Damion Hernandez RN) 050 (Given - Provider: Damion Hernandez RN) lactated [...] 2106 (Given - Provider: Damion Hernandez RN) 0844 (Given - Provider: Ema Sánchez RN) piperacillin-tazobactam (ZOSYN) IVPB 3.375 g (premix) 3.375 g, Intravenous, at 12.5 mL/hr, Every 8 hours, First dose on Tue04/20/22 at 2100, VESICANT, Indication: Sepsis of Unknown Origin 2240 (New Bag - Provider: Damion Hernandez RN) 0500 (New Bag - Provider: Damion Hernandez RN)0900 (Stopped - Provider: Ema Sánchez RN) piperacillin-tazobactam (ZOSYN) IVPB 4.5 g (premix) (COMPLETED) [...] dose 1703 (New Bag - Provider: Ema Lima, RN) sodium chloride 0.9% (NS) bolus 2,328 mL (COMPLETED) 2,328 mL (30 mL/kg 77.6 kg [place] weight), Intravenous, at 1,154.4 mL/hr, Once, On Tue04/20/22 at 1455, For 1 dose 1455 (New Bag - Provider: Bipin Estrada RN) sodium hypochlorite (DAKIN'S (QUARTER-STRENGTH)) 0.125 % external solution Topical, Daily, First dose on Tue04/21/22 at 1200, Pack R medial leg ulcer with Dakin's wet to dry 1200 (Given - Provid er: Ema Sánchez RN) vancomycin (VANCOCIN) 2000 mg in sodium chloride 0.9% 500 mL IVPB (COMPLETED) 2,000 mg, Intravenous, at 250 mL/hr, Once, On Tue04/20/22 at 1520, For 1 dose, Indication: Sepsis of Unknown Origin 1701 (New Bag - Provider: Ema Lima RN) vancomycin (VANCOCIN) 2000 mg in sodium chloride 0.9% 500 mL IVPB 2,000 mg, Intravenous, at 250 mL/hr, Every 36 hours, First dose on Tue04/22/22 at 0600, Indication: Sepsis of Unknown Origin [...] 1904 (New Bag - Provider: Katie Hammer, KELLY) 0459 (New Bag - Provider: Damion Hernandez RN)1200 (Stopped - Provider: Ema Sánchez RN) [...] Application , Topical, ONCE, 1 dose, On 02/26/23 at 2215, Apply to left leg wound 2144 (Given - Provider: Bryson Ibarra RN - Comment: Given by [employer]ER during wound care) ceFEPIme (MAXIPIME) 2 g in sodium chloride 0.9% (MB PLUS) 100 mL (total volume) IVPB (COMPLETED) 2 g, Intravenous, Administer over 0.5 Hours, ONCE, 1 dose, On 02/26/23 at 2330, Infuse STAT doses over 30 minutes. Infuse other doses over 4 hours. 235 ($$New Bag$$ - Provider: Bryson Ibarra RN) 004 (Stopped - Provider: Bryson Ibarra RN) ceFEPIme (MAXIPIME) 2 g in sodium chloride 0.9% (MB PLUS) 100 mL (total volume) IVPB 2 g, Intravenous, Administer over 4 Hours, EVERY 8 HOURS NON-STANDARD, First dose on 02/27/23 at 0730, Until Discontinued, Infuse STAT doses over 30 minutes. Infuse other doses over 4 hours. Enoxaparin Sodium (LOVENOX) injection 100 mg (COMPLETED) 100 mg, Subcutaneous, ONCE, 1 dose, On 02/26/23 at 2300, Indications: Suspected DVT; no PE 2355 (Given - Provider: Bryson Ibarra RN) Morphine sulfate (PF) injection 4 mg (COMPLETED) 4 mg, Intravenous, ONCE, 1 dose, On 02/26/23 at 2200 221 (Given - Provider: Bryson Ibarra, KELLY) Ondansetron 4mg/2ml (ZOFRAN) injection 4 mg (COMPLETED) 4 mg, Intravenous, ONCE, 1 dose, On 02/26/23 at 2200 221 (Given - Provider: Bryson Ibarra RN) Sodium chloride 0.9% IV solution 1,000 mL (COMPLETED) 1,000 mL, Intravenous, at 999 mL/hr, ONCE, 1 dose, On 02/26/23 at 2230, Then 100ml/hr after liter bolus. 222 ($$New Bag$$ - Provider: Bryson Ibarra RN)2358 (Stopped - Provider: Bryson Ibarra RN) Vancomycin (VANCOCIN) 1,500 mg in Sodium chloride 0.9%, with overfill 565 mL (total volume) IVPB (COMPLETED) 1,500 mg, Intravenous, ONCE, 1 dose, On 02/26/23 at 2200, Infuse at a rate of 1 gram/hour. Extravasation Risk 2214 ($$New Bag$$ - Provider: Bryson Ibarra, RN)2357 (Stopped - Provider: Bryson Ibarra RN) Continuous Medication Order 02/25/2023 02/26/2023 02/27/2023 Sodium chloride 0.9% IV solution Intravenous, at 100 mL/hr, CONTINUOUS, Starting on 02/26/23 at 2130, Until 02/27/23 at 0130 2354 ($$New Bag$$ - Provider : Bryson Ibarra RN) Scheduled Medication Order 03/14/2023 03/15/2023 03/16/2023 Ampicillin-Sulbactam Sodium (UNASYN) 3 g in sodium chloride 0.9% (MB PLUS) 100 mL (total volume) IVPB (COMPLETED) 3 g, Intravenous, Administer over 30 Minutes, ONCE, 1 dose, On 03/16/23 at 1815, Contains a penicillin. 183 ($$New Bag$$ - Provider: Aide Bernal RN)193 (Stopped - Provider: Meron Hill RN) furOSEmide (LASIX) injection 40 mg (COMPLETED) 40 mg, Intravenous, ONCE, 1 dose, On 03/16/23 at 1815, Administer by slow IV push [...] LLE wound 1110 (Given - Provider: Tania Kahn RN) 0835 (Given - Provider: Antony Santillan RN) 0757 (Not Given - Provider: Kristi Ko RN - Reason: Patient/family refused - Comment: pt doesnt want me to remove dressings) Docusate (COLACE) capsule 100 mg 100 mg, Oral, EVERY 12 HOURS, First dose on Tue03/16/23 at 2315, Until Discontinued 0806 (Given - Provider: Tania Kahn RN)204 (Given - Provider: Heaven Shannon RN) 0832 (Given - Provider: Antony Santillan RN)2103 (Given - Provider: Reshma Dunne RN) 0755 (Given - Provider: Kristi Ko, KELLY) Enoxaparin Sodium (LOVENOX) injection 40 mg 40 [...] Discontinued 0837 (Given - Provider: Marcelina Orta, INTEGRATED LOGISTICS PROGRAMS DIRECTOR)193 (Given - Provider: Dee Bowen, INTEGRATED LOGISTICS PROGRAMS DIRECTOR) 0717 (Given - Provider: Deja Martin, INTEGRATED LOGISTICS PROGRAMS DIRECTOR)2012 (Not Given - Provider: Carlita Colvin RCP - Reason: Patient/family refused) 0700 (Not Given - Provider: Deborah Bermudez RRT - Reason: Patient/family refused) furOSEmide (LASIX) tablet 40 mg 40 mg, Oral, DAILY, First dose on Tue03/20/23 at 1000, Until Discontinued 1110 (Given - Provider: Tania Kahn RN) 0833 (Given - Provider: Antony Santillan RN) 0755 (Given - Provider: Kristi Ko, KELLY) Gabapentin (NEURONTIN) capsule 400 mg 400 mg, Oral, 4 TIMES DAILY, First dose on Tue03/17/23 at 1700, Until Discontinued 0806 (Given - Provider: Tania Kahn RN)1222 (Given - Provider: Tania Kahn RN)1542 (Given - Provider: Tania Kahn RN)204 (Given - Provider: Heaven Shannon RN) 0832 (Given - Provider: Antony Santillan, KELLY)1413 (Given - Provider: Antony Santillan RN)1849 (Given - Provider: Antony Santillan, KELLY)210 (Given - Provider: Reshma Dunne, KELLY) 0755 (Given - Provider: Kristi Ko, KELLY)1146 (Given - Provider: Kristi Ko, KELLY) Magnesium sulfate 2 g/50 ml in sterile water premix IVPB 2 g 50 mL (total volume) 2 g, Intravenous, Administer over 4 Hours, DAILY, First dose on 7/28/23 at 0600, Until Discontinued, Give if magnesium [...] Topical, 2 TIMES DAILY, First dose on 03/19/23 at 0900, Until Discontinued, Apply to BLLE [...] 1537, Anxiety, Nausea / Vomiting, Itching, Insomnia 2103 (Given - Provider: Reshma Dunne RN) Ipratropium-albuterol (DUONEB) 0.5-2.5 (3) MG/3ML nebulizer solution 3 mL 3 mL, Nebulization, EVERY 4 HOURS NEEDED, Starting on Tue03/17/23 at 1100, Until Tue03/22/23 at 1537, Shortness of Breath, Wheezing Ketorolac (TORADOL) injection 15 mg 15 mg, Intravenous, EVERY 6 HOURS NEEDED, Starting on Tue03/17/23 at 1358, Until Tue03/22/23 at 1357, Moderate Pain, Severe Pain Labetalol (NORMODYNE) injection 20 mg 20 mg, Intravenous, EVERY 6 HOURS NEEDED, Starting on Tue03/17/23 at 1403, Until Tue03/22/23 at 1537, SBP > 160 mmHg with HR >60 bpm, Administration duration: up to 20 mg over 2 minutes. Telemetry required. 0441 (Given - Provider: Reshma Dunne RN) Melatonin tablet 6 mg 6 mg, Oral, DAILY AT BEDTIME NEEDED, Starting on Tue03/17/23 at 1403, Until Tue03/22/23 at 1537, Insomnia 2103 (Given - Provider: Reshma Dunne, KELLY) Ondansetron 4mg/2ml (ZOFRAN) injection 4 mg 4 mg, Intravenous, EVERY 4 HOURS NEEDED, Starting on Tue03/16/23 at 2302, Until Tue03/22/23 at 1537, Nausea / Vomiting traMADol (ULTRAM) tablet 100 mg 100 mg, Oral, EVERY 4 HOURS NEEDED, Starting on Tue03/17/23 at 2153, Until Tue03/22/23 at 1537, Moderate Pain, Severe Pain 1424 (Given - Provider: Tania Kahn RN)2044 (Given - Provider: Heaven Shannon RN) 005 (Given - Provider: Heaven Shannon RN)1413 (Given - Provider: Antony Santillan RN)2103 (Given - Provider: Reshma Dunne, KELLY) 0200 (Given - Provider: Reshma Dunne, KELLY)0541 (Given - Provider: Reshma Dunne RN) Linked [...] of insulin): 2, For Downtime Calculator, use: Insulin SC NIGHTtime 2100 (Not Given - Provider: Kika Valle [...] Normal Sensitivity Scale, For Downtime Calculator, use: Insulin SC MEALtime PREprandial 0730 (Not Given - Provider: Myriam Martínez [...] 2300 0821 (Given - Provider: Myriam Martínez LPN)2000 (Not Given - Provider: Kika Valle LPN [...] 0939 (Given - Provider: Cate Collins RN) piperacillin-tazobacta m (ZOSYN) IVPB 3.375 g (premix) 3.375 g, Intravenous, at 12.5 mL/hr, Every 8 hours, First dose on Tue08/06/23 at 1800, VESICANT, Indication: Skin/Soft Tissue Infection [...] on 07/30/23 at 2000, For 1 dose melatonin Tab [...] Provider: Kika Valle LPN)1026 (Given - Provider: Canide Givens LPN)1429 (Given - Provider: Candie Givens LPN)1828 (Given - Provider: Bj Parrish, KELLY)2232 (Given - Provider: Rochelle Alexis, RN) 0236 (Given - Provider: Rochelle Alexis, RN)0716 (Given - Provider: Cate Collins, KELLY)1116 (Given - Provider: Cate Collins RN)1519 (Given [...] at 0900, DO NOT CRUSH OR CHEW. 911 (Given - Provider: Yesenia Novoa RN) 921 (Given - Provider: Antelmo Tate LPN) 43 (Given - Provider: Antelmo Tate LPN) azithromycin [...] for Subutex., Indication: Treatment of opioid dependence 7 (Given - Provider: Mackenzie Dickson RN)910 (Given - Provider: Yesenia Novoa RN)2051 (Given - Provider: Mariela Russo RN) 921 (Given - Provider: Antelmo Tate LPN)2009 (Given - Provider: Mariela Russo RN) 44 (Given - Provider: Antelmo Tate LPN) ceFAZolin [...] 0911 (Given - Provider: Yesenia Novoa RN) 0928 (Given - Provider: Antelmo Tate LPN) 0943 (Given - Provider: Antelmo Tate LPN) enoxaparin (LOVENOX) syringe 40 mg 40 mg, Subcutaneous, Daily, First dose on Tue07/03/24 at 0900, Administer in abdomen unless otherwise directed by prescriber. Notify physician if patient refuses., Indication: VTE Prophylaxis 09 (Given - Provider: Yesenia Novoa RN) 0900 (Not Given - Provider: Antelmo Tate LPN - Reason: Patient/family refused) 0900 (Not Given - Provider: Antelmo Tate LPN - Reason: Patient/family refused) furosemide (LASIX) injection 20 mg (COMPLETED) 20 mg, Intravenous, Every 8 hours scheduled, First dose on Tue07/02/24 at 2220, For 2 doses, Administer IV push at 20 mg per minute (doses higher than 100 mg require IVPB) 09 (Given - Provider: Yesenia Novoa RN) furosemide (LASIX) tablet 40 mg 40 mg, Oral, 2 times daily, First dose on Tue07/03/24 at 1800 1705 (Given - Provider: Yesenia Novoa RN) 09 (Given - Provider: Antelmo Tate LPN)175 (Given - Provider: Antelmo Tate LPN) 09 (Given - Provider: Antelmo Tate LPN) gabapentin (NEURONTIN) capsule 400 mg 400 mg, Oral, Nightly, First dose on Tue07/02/24 at 2300, Capsule may be opened and contents placed down tube, flush tube with 10ml saline 2050 (Given - Provider: Mariela Russo RN) 2009 (Given - Provider: Mariela Russo, RN) mometasone-formoterol (DULERA) 200-5 mcg/actuation inhaler 2 puff 2 puff, Inhalation, 2 times daily (RT), First dose on Tue07/02/24 at 2300 0912 (Given - Provider: Yesenia Novoa RN)2050 (Given - Provider: Mariela Russo RN) 899 (Not Given - Provider: Antelmo Tate LPN - Reason: Patient/family refused)1999 (Not Given - Provider: Mariela Russo RN - Reason: Patient/family refused) 899 (Not Given - Provider: Antelmo Tate LPN - Reason: Patient/family refused) pantoprazole (PROTONIX) EC tablet 20 mg 20 mg, Oral, Daily, First dose on Tue07/03/24 at 0900, DO NOT CRUSH OR CHEW. 0911 (Given - Provider: Yesenia Novoa RN) 09 (Given - Provider: Antelmo Tate LPN) 0943 (Given - Provider: Antelmo Tate LPN) predniSONE [...] Yesenia Novoa RN)2200 (Given - Provider: Mariela Russo, KELLY) 0600 (Not Given - Provider: Mariela Russo [...] crushing/splitting only to situations where clinically necessary. 0911 (Given - Provider: Yesenia Novoa RN) 0922 (Given - Provider: Antelmo Tate LPN) 0944 (Given - Provider: Antelmo Tate LPN) PRN Medication Order 07/03/2024 07/04/2024 07/05/2024 acetaminophen (TYLENOL) tablet 650 mg 650 mg, Oral, Every 4 hours PRN, mild pain, fever 100.4 F or greater, headaches, Starting on Tue07/02/24 at 7 albuterol (PROVENTIL) 2.5 mg /3 mL (0.083 %) nebulizer solution 2.5 mg 2.5 mg, Nebulization, Every 6 hours PRN, wheezing, Starting on Tue07/02/24 at 221 albuterol inhaler 2 puff 2 puff, Inhalation, [...] product is in a glass vial. In [employer] drug library, no longer in fluid library. [...] Faye RN) 0842 (Given - Provider: Sally Pleitez, KELLY) 0810 (Given - Provider: Carmine Graham, KELLY) buprenorphine HCL (SUBUTEX) SL tablet 4 mg 4 mg, Sublingual, Daily, First dose on Tue10/16/24 at 1800, Verify patient has received Patient Med Guide for Subutex., Indication: Treatment of opioid dependence 1813 (Given - Provider: George Faye, KELLY) 1807 (Given - Provider: Sally Pleitez, KELLY) buprenorphine HCL (SUBUTEX) SL tablet 8 mg 8 mg, Sublingual, 2 times daily, First dose on Tue10/16/24 at 0045, Verify patient has received Patient Med Guide for Subutex., Indication: Treatment of opioid dependence 0855 (Given - Provider: George Faye RN)2134 (Given - Provider: Rochelle Alexis RN) 0842 (Given - Provider: Sally Pleitez RN)2100 (Given - Provider: Marilyn Conway, KELLY) 0812 (Given - Provider: Carmine Graham RN) cholecalciferol (vitamin D3) 1 capsule 1 capsule [...] 0810 (Given - Provider: Carmine Graham RN) docusate sodium (COLACE) capsule 100 mg 100 mg, Oral, 2 times daily, First dose on Tue10/19/24 at 1030, Hold for loose stools DO NOT CRUSH OR CHEW. 0855 (Given - Provider: George Faye RN)2135 (Given - Provider: Rochelle Alexis RN) 0842 (Given - Provider: Sally Pleitez RN)2240 (Given - Provider: Marilyn Conway RN) 0900 [...] daily, First dose (after last modification) on Tue10/18/24 at 1800, Administer IV push at 20 [...] (doses higher than 100 mg require IVPB) 2134 (Not Given - Provider: Rochelle Alexis RN - Reason: Patient/family refused)2213 (Given - Provider: Rochelle Alexis RN - Comment: pt refused, now would like) 0607 (Not Given - Provider: Rochelle Alexis RN - Reason: Patient/family refused)0851 (Given - Provider: Slaly Pleitez RN)1400 (Not Given - Provider: Sally Pleitez RN - Reason: Patient/family refused)1526 (Given - Provider: Sally Pleitez RN)2137 (Given - Provider: Marilyn Conway RN) 0611 (Given - Provider: Marilyn Conway RN)1402 (Given - Provider: Carmine Graham, KELLY) gabapentin (NEURONTIN) capsule 600 mg 600 mg, [...] Pleitez RN)1709 (Given - Provider: Sally Pleitez RN)2058 (Given - Provider: Marilyn Conway, KELLY) 0810 (Given - Provider: Carmine Graham RN)1401 [...] 0854 (Patch Applied - Provider: George Faye RN)2137 (Patch Removed - Provider: Rochelle Alexis RN) [...] Nightly, First dose on Tue10/16/24 at 2100 2132 (Hold - Provider: Rochelle Alexis RN - [...] Provider: Rochelle Alexis RN - Reason: Patient/family refused)2214 (Given - Provider: Rochelle Alexis RN - Comment: pt refused, now would like) 0850 (Given - Provider: Sally Pleitez, KELLY)2100 (Not Given - Provider: Marilyn Conway RN [...] RN)0854 (Patch Applied - Provider: George Faye RN)2136 (Patch Removed - Provider: Rochelle Alexis RN [...] RN) 0810 (Given - Provider: Carmine Graham KELLY) spironolactone (ALDACTONE) tablet 50 mg 50 mg, Oral, Daily, First dose on Tue10/16/24 at 1305, CATEGORY C HAZARDOUS DRUG use safe handling precautions. Use reference link to view PPE guidelines. Minimize crushing/splitting only to situations where clinically necessary. 0855 (Given - Provider: George Faye, RN) 0842 (Given - Provider: Sally Pleitez, KELLY) 0810 (Given - Provider: Carmine Graham, KELLY) traZODone (DESYREL) tablet 50 mg 50 mg, [...] at 0011 0855 (Given - Provider: George Faye RN) 1113 (Given - Provider: Sally Pleitez, KELLY) albuterol (PROVENTIL) 2.5 mg /3 mL (0.083 %) nebulizer solution 2.5 mg 2.5 mg, Inhalation, Every 2 hour PRN (RT), wheezing, shortness of breath, Starting on Tue10/16/24 at 0011 1647 (Given - Provider: Lizzy Mc, INTEGRATED LOGISTICS PROGRAMS DIRECTOR) 0909 (Given - Provider: Heaven Luna, JORGE)2103 (Given - Provider: Neha Denney, JORGE) 0658 (Given - Provider: Heaven Luna, JORGE) magnesium hydroxide (MOM) 400 mg/5 mL suspension 2,400 mg 2,400 mg (30 mL), Oral, Daily PRN, constipation, constipation, Starting on Tue10/16/24 at 0011 methyl salicylate-menthol 15-10 % Crea Topical (Top), Every 8 hours PRN, pain for patients back, Starting on 3/2/25 at 1812, Apply to back 0558 (Given - Provider: Payton Daniel, KELLY) 0237 (Given - Provider: Rochelle Alexis RN)1020 (Given - Provider: Sally Pleitez, KELLY)2244 (Given - Provider: Marilyn Conway, KELLY) ondansetron (ZOFRAN) injection 4 mg 4 mg, [...] line care, Starting on Tue10/15/24 at 1820 2136 (Given - Provider: Rochelle Alexis RN) sodium chloride 0.9% (NS)(Linked Group 1) [...] Alexis RN)1445 (Rate/Dose Change - Provider: Rochelle Alexis, RN)1453 (Rate/Dose Change - Provider: Rochelle Alexis, RN)1454 (Rate/Dose Verify - Provider: Rochelle Alexis, KELLY)1455 (Paused - Provider: Rochelle Alexis RN)1525 (Restarted - Provider: Rochelle Alexis, RN)1549 (Stopped - Provider: Rochelle Alexis, KELLY)1554 (Stopped - Provider: Rochelle Alexis RN) Linked [...] (RT), First dose on Tue04/02/25 at 2000 0948 (Not Given - Provider: Sheila Franklin [...] Indication: Pain 1641 (Given - Provider: Sheila Franklin RN) 0003 (Given - Provider: Violeta Dillon RN)1138 (Given - Provider: Sally Pleitez RN)2004 (Given - Provider: Destiny Washburn LPN) 0833 [...] PRN, nausea, vomiting, Starting on Tue04/02/25 at 183, [] Use oral route first, if tolerated. [...] Daily PRN, constipation, Starting on Tue04/02/25 at 183, Use as first line agent for constipation. [...] stating that he does not want to pee all the time. Education provided, pt still refusing primary RN [...] scheduled, First dose on 05/12/25 at 0605, Capsule may be opened and contents placed down tube, flush tube with 10ml saline 0829 (Given - Provider: Amna Pedro RN)1531 (Given - Provider: Amna Pedro RN)2314 (Given - Provider: Sierra Armenta, KELLY) 0845 (Given - Provider: Deborah Castellano, RN)1658 (Given - Provider: Deborah Castellano RN) [...] equal to: 80, For Downtime Calculator, use: Insulin SC NIGHTtime 2100 (Not Given - Provider: Sierra Armenta RN - Reason: Order parameters not met) 2100 (Not Given - Provider: Jonathan Weaver LPN - Reason: Order parameters not met) insulin lispro (AdmeLOG,HumaLOG) injection 0-30 Units 0-30 Units, Subcutaneous, 3 times daily before meals, First dose on Tue05/12/25 at 0730, * Dose should be given EITHER: No sooner than 10-15 minutes BEFORE a meal (Specific Prandial Doses or NO Prandial Dose - Corrective Scale ONLY) - OR - Immediately AFTER meal completed (Carb Counting Ratio), Prandial Insulin Dosing Method: NO Prandial Dose - Corrective Scale ONLY, Corrective Insulin Regimen (select desired scale to cover BG result): USUAL Sensitivity Scale, Dose Reduction Threshold (at meals) for POC Blood Glucose less than or equal to: 80, For Downtime Calculator, use: Insulin SC MEALtime PREprandial 0730 (Not Given - Provider: Sydnie Pedro - Reason: Order parameters not met)1130 (Not Given - Provider: Yesenia Novoa RN - Reason: Patient/family refused)1630 (Not Given - Provider: Yesenia Novoa RN - Reason: Order parameters not met) 0730 (Not Given - Provider: Deborah Castellaon RN - Reason: Order parameters not met)1130 [...] - Comment: previous pills feel on floor) 2104 (Given - Provider: Jonathan Weaver LPN) piperacillin-tazobactam (ZOSYN) IVPB 3.375 g (premix) 3.375 g, Intravenous, at 12.5 mL/hr, Every 8 hours, First dose on Tue05/12/25 at 1300, Start infuse 3 hours after loading dose of Zosyn 4.5 gm VESICANT, Indication: Skin/Soft Tissue Infection 0243 (Associate Pump - Provider: Dmitri Dlil RN)0426 (Stopped - Provider: Dmitri Dill RN)0832 (New Bag - Provider: Amna Pedro, RN)1528 (New Bag - Provider: Amna Pedro RN)2318 (New Bag - Provider: Sierra Armenta RN) 0849 (New Bag - Provider: Deborah Castellano, RN)1310 (Stopped - Provider: Deborah Castellano RN)1600 [...] RN notified, pt states he does not need it. education provided)2008 (Given - Provider: Sierra Armenta RN) 0900 (Not Given - Provider: Deborah Castellano RN - Reason: Patient/family refused)2100 (Not Given - Provider: Jonathan Weaver LPN - Reason: Patient/family refused) 0834 (Given - Provider: Radha Buckner RN) sodium chloride (PF) (NS) flush 5 [...] Tissue Infection 0243 (Stopped - Provider: Dmitri Dill, RN)0426 (Stopped - Provider: Dmitri Dill, RN)1302 (New Bag - Provider: Amna Pedro, RN)2356 (New Bag - Provider: Sierra Armenta, KELLY) 1230 (Not Given - Provider: Deborah Castellano RN - Reason: Loss of IV access)1625 (Stopped - Provider: Deborah Castellano RN) 0030 (Not Given - Provider: Jonathan [...] 0604 1302 (Given - Provider: Elif Copeland, [employer] PROGRAMS DIRECTOR) ondansetron (ZOFRAN) injection 4 mg(Linked Group 3) [...] Dmitri Dill RN)0718 (Given - Provider: Yesenia Novoa RN)1108 (Given - Provider: Yesenia Novoa, RN)1531 (Given - Provider: Amna Pedro RN)2008 (Given - Provider: Sierra Armenta RN) 0213 (Given - Provider: Sierra Armenta RN)0845 (Given - Provider: Deborah Castellano RN)1232 (Given - Provider: Deborah Castellano RN)1658 (Given - Provider: Deborah Castellano RN)2105 (Given - Provider: Jonathan Weaver LPN) 0103 (Given - Provider: Jonathan Weaver LPN)0510 (Given - Provider: Jonathan Weaver LPN)0913 (Given - Provider: Radha Buckner RN)1336 (Given - Provider: Radha Buckner RN) sodium chloride (PF) (NS) flush 5 [...] Dill RN)0831 (New Bag - Provider: Amna Pedro RN)1521 (Canceled Entry - Provider: Amna Pedro RN) Linked Groups Order Group 1: insulin [...] equal to: 80, For Downtime Calculator, use: Insulin SC NIGHTtime And Notify physician (CANCELED) Routine, Until discontinued, Starting on Tue05/12/25 at 0605, Until Specified, Other: IF HS POC Glucose RE-CHECK Greater than 250, If initial HS POC glucose is greater than 250, administer insulin as directed and re-check POC glucose no sooner than 2 hours after administration. IF RE-CHECK POC glucose is still greater than 250, notify provider. Group 2: Saline lock IV (CANCELED) Routine, Continuous, Starting on 05/12/25 at 0605, Until Specified And sodium chloride (PF) (NS) flush 5 mLJump to med 5 mL, Intravenous, As needed, line care, Starting on Tue05/12/25 at 0604 And sodium chloride (PF) (NS) flush 5 mLJump to med 5 mL, Intravenous, Every 8 hours scheduled, First dose on 05/12/25 at 0605, Saline lock And sodium chloride [...] Care Teams (unrecognized sec tion and content) Panel Saw Operator Relationship Specialty Start Date End Date Ani Worley APRN-PACKAGE LINE RELIEF OPERATOR [address] [place] [address] PCP - General Certified Nurse Practitioner 03/30/21 Panel Saw Operator Relationship Specialty Start Date End Date Ani Worley [facility]NSTATE [facility] FOR [facility] [address] [place] [address] PCP - General Certified Nurse Practitioner 03/30/21 Panel Saw Operator Relationship Specialty Start Date End Date Ani Worley [facility] [address] [place] [address] PCP - General Certified Nurse Practitioner 03/30/21 Panel Saw Operator Relationship Specialty Start Date End Date Ani Worley APRNPACKAGE LINE RELIEF OPERATOR [address] [place] [address] PCP - General Certified Nurse Practitioner 03/30/21 Panel Saw Operator Relationship Specialty Start Date End Date Ani Worley APRNPACKAGE LINE RELIEF OPERATOR [address] [place] [address] PCP - General Certified Nurse Practitioner 03/30/21 Panel Saw Operator Relationship Specialty Start Date End Date Ani Worley APRNPACKAGE LINE RELIEF OPERATOR [address] [place] [address] PCP - General Certified Nurse Practitioner 03/30/21 Panel Saw Operator Relationship Specialty Start Date End Date Ani Worley, PACKAGE LINE RELIEF OPERATOR [address] [facility] [address] [place] [address] PCP - General Family Medicine 06/03/21 Ani Worley, PACKAGE LINE RELIEF OPERATOR [address] [facility] [address] [place] [address] Family Medicine 06/03/21 Prashanth Hercules MD [facility] Trang Casitllo [address] [place] [address] Consulting Physician Addiction Medicine 10/02/21 Panel Saw Operator Relationship Specialty Start Date End Date Ani Worley MODELING AGENT-PACKAGE LINE RELIEF OPERATOR [address] [place] [address] PCP - General Certified Nurse Practitioner 03/30/21 Panel Saw Operator Relationship Specialty Start Date End Date Ani Worley MODELING AGENT-PACKAGE LINE RELIEF OPERATOR [address] [place] [address] PCP - General Certified Nurse Practitioner 03/30/21 Panel Saw Operator Relationship Specialty Start Date End Date Ani Worley MODELING AGENT-PACKAGE LINE RELIEF OPERATOR [address] [place] [address] PCP - General Certified Nurse Practitioner 03/30/21 Panel Saw Operator Relationship Specialty Start Date End Date Ani Worley MODELING AGENT-PACKAGE LINE RELIEF OPERATOR [address] [place] [address] PCP - General Certified Nurse Practitioner 03/30/21 Panel Saw Operator Relationship Specialty Start Date End Date Ani Worley MODELING AGENT-PACKAGE LINE RELIEF OPERATOR [address] [place] [address] PCP - General Certified Nurse Practitioner 03/30/21 Panel Saw Operator Relationship Specialty Start Date End Date Ani Worley MODELING AGENT-PACKAGE LINE RELIEF OPERATOR [address] [facility] [place] [address] PCP - General Certified Nurse Practitioner 03/30/21 Panel Saw Operator Relationship Specialty Start Date End Date Ani Worley MODELING AGENT-PACKAGE LINE RELIEF OPERATOR [address] [facility] [place] [address] PCP - General Certified Nurse Practitioner 03/30/21 Panel Saw Operator Relationship Specialty Start Date End Date Ani Worley MODELING AGENT-PACKAGE LINE RELIEF OPERATOR [address] [place] [address] PCP - General Certified Nurse Practitioner 03/30/21 Panel Saw Operator Relationship Specialty Start Date End Date Ani Worley MODELING AGENT-PACKAGE LINE RELIEF OPERATOR [address] [facility] [place] [address] PCP - General Certified Nurse Practitioner 03/30/21 Panel Saw Operator Relationship Specialty Start Date End Date Ani Worley MODELING AGENT-PACKAGE LINE RELIEF OPERATOR [address] [facility] [place] [address] PCP - General Certified Nurse Practitioner 03/30/21 Panel Saw Operator Relationship Specialty Start Date End Date Meir Ani, MODELING AGENT-PACKAGE LINE RELIEF OPERATOR [address] [facility] [place] [address] PCP - General Certified Nurse Practitioner 03/30/21 Panel Saw Operator Relationship Specialty Start Date End Date Ani Worley, MODELING AGENT-PACKAGE LINE RELIEF OPERATOR [address] [facility] [place] [address] PCP - General Certified Nurse Practitioner 03/30/21 Panel Saw Operator Relationship Specialty Start Date End Date Ani Worley, MODELING AGENT-PACKAGE LINE RELIEF OPERATOR [address] [facility] [place] [address] PCP - General Certified Nurse Practitioner 03/30/21 Panel Saw Operator Relationship Specialty Start Date End Date Ani Worley, MODELING AGENT-PACKAGE LINE RELIEF OPERATOR [address] [place] [address] PCP - General Certified Nurse Practitioner 03/30/21 Panel Saw Operator Relationship Specialty Start Date End Date Ani Worley APRN-PACKAGE LINE RELIEF OPERATOR [address] [place] [address] PCP - General Certified Nurse Practitioner 03/30/21 Panel Saw Operator Relationship Specialty Start Date End Date Ani Worley MODELING AGENT-PACKAGE LINE RELIEF OPERATOR [address] [place] [address] PCP - General Certified Nurse Practitioner 03/30/21 Panel Saw Operator Relationship Specialty Start Date End Date Ani Worley MODELING AGENT-PACKAGE LINE RELIEF OPERATOR [address] [place] [address] PCP - General Certified Nurse Practitioner 03/30/21 Panel Saw Operator Relationship Specialty Start Date End Date Ani Worley MODELING AGENT-PACKAGE LINE RELIEF OPERATOR [address] [place] [address] PCP - General Certified Nurse Practitioner 03/30/21 Panel Saw Operator Relationship Specialty Start Date End Date Ani Worley APRN-PACKAGE LINE RELIEF OPERATOR [address] [place] [address] PCP - General Certified Nurse Practitioner 03/30/21 Panel Saw Operator Relationship Specialty Start Date End Date Ani Worley MODELING AGENT-PACKAGE LINE RELIEF OPERATOR [address] [place] [address] PCP - General Certified Nurse Practitioner 03/30/21 Panel Saw Operator Relationship Specialty Start Date End Date Ani Worley MODELING AGENT-PACKAGE LINE RELIEF OPERATOR [address] [place] [address] PCP - General Certified Nurse Practitioner 03/30/21 Panel Saw Operator Relationship Specialty Start Date End Date Ani Worley CNP [address] [facility] [address] [place] [address] PCP - General Family Medicine 06/03/21 Ani Worley CNP [address] [facility] [address] [place] [address] Family Medicine 06/03/21 Prashanth Hercules MD [facility] Trang Castillo [address] [place] [address] Consulting Physician Addiction Medicine 10/02/21 Panel Saw Operator Relationship Specialty Start Date End Date Ani Worley APRN-RODRIGUE [address] [place] [address] PCP - General Certified Nurse Practitioner 03/30/21 Panel Saw Operator Relationship Specialty Start Date End Date Ani Worley APRN-CNP [address] [place] [address] PCP - General Certified Nurse Practitioner 03/30/21 Panel Saw Operator Relationship Specialty Start Date End Date nAi Worley APRN-CNP [address] [place] [address] PCP - General Certified Nurse Practitioner 03/30/21 Panel Saw Operator Relationship Specialty Start Date End Date Ani Worley APRN-RODRIGUE [address] [place] [address] PCP - General Certified Nurse Practitioner 03/30/21 Panel Saw Operator Relationship Specialty Start Date End Date Ani Worley CNP [address] [facility] [address] [place] [address] PCP - General Family Medicine 06/03/21 Ani Worley CNP [address] [facility] [address] [place] [address] Family Medicine 06/03/21 Prashanth Hercules MD [facility] Trang Castillo [address] [place] [address], [place] [address] Consulting Physician Addiction Medicine 10/02/21 Panel Saw Operator Relationship Specialty Start Date End Date Ani Worley CNP [address] [facility] [address] [place] [address] PCP - General Family Medicine 06/03/21 Ani Worley CNP [address] [facility] [address] [place] [address] Family Medicine 06/03/21 Panel Saw Operator Relationship Specialty Start Date End Date nAi Worley CNP [address] [facility] [address] [place] [address] PCP - General Family Medicine 06/03/21 Ani Worley CNP [address] [facility] [address] [place] [address] Family Medicine 06/03/21 Panel Saw Operator Relationship Specialty Start Date End Date Ani Worley CNP [address] [facility] [address] [place] [address] PCP - General Family Medicine 06/03/21 Ani Worley CNP [address] [place] [address] Family Medicine 06/03/21 Panel Saw Operator Relationship Specialty Start Date End Date Ani Worley CNP [address] [place] [address] PCP - General Family Medicine 06/03/21 Ani Worley CNP [address] [place] [address] Family Medicine 06/03/21 Panel Saw Operator Relationship Specialty Start Date End Date Ani Worley CNP [address] [place] [address] PCP - General Family Medicine 06/03/21 Ani Worley PACKAGE LINE RELIEF OPERATOR [address] [place] [address] Family Medicine 06/03/21 Panel Saw Operator Relationship Specialty Start Date End Date Ani Worley CNP [address] [place] [address] PCP - General Family Medicine 06/03/21 Ani Worley CNP [address] [place] [address] Family Medicine 06/03/21 Panel Saw Operator Relationship Specialty Start Date End Date Ani Worley CNP [address] [place] [address] PCP - General Family Medicine 06/03/21 Ani Worley CNP [address] [facility] [address] [place] [address] Family Medicine 06/03/21 Panel Saw Operator Relationship Specialty Start Date End Date Ani Worley CNP [address] [facility] [address] [place] [address] PCP - General Family Medicine 06/03/21 Ani Worley CNP [address] [facility] [address] [place] [address] Family Medicine 06/03/21 Panel Saw Operator Relationship Specialty Start Date End Date Ani Worley CNP [address] [facility] [address] [place] [address] PCP - General Family Medicine 06/03/21 Ani Worley CNP [address] [facility] [address] [place] [address] Family Medicine 06/03/21 Panel Saw Operator Relationship Specialty Start Date End Date Ani Worley CNP [address] [facility] [address] [place] [address] PCP - General Family Medicine 06/03/21 Ani Worley CNP [address] [facility] [address] [place] [address] Family Medicine 06/03/21 Panel Saw Operator Relationship Specialty Start Date End Date Ani Worley CNP [address] [facility] [address] [place] [address] PCP - General Family Medicine 06/03/21 Ani Worley CNP [address] [facility] [address] [place] [address] Family Medicine 06/03/21 Panel Saw Operator Relationship Specialty Start Date End Date Ani Worley CNP [address] [facility] [address] [place] [address] PCP - General Family Medicine 06/03/21 Ani Worley CNP [address] [facility] [address] [place] [address] Family Medicine 06/03/21 Panel Saw Operator Relationship Specialty Start Date End Date Ani Worley CNP [address] [address] PCP - General Family Medicine 12/22/23 Ani Worley CNP [address] [address] Family Medicine 06/03/21 Ani Worley CNP [address] [facility] [address] [place] [address] Referring Physician Family Medicine 12/22/23 Panel Saw Operator Relationship Specialty Start Date End Date Ani Worley CNP [address] [facility] [address] [place] [address] PCP - General Family Medicine 12/22/23 Ani Worley CNP [address] [facility] [address] [place] [address] Family Medicine 06/03/21 Ani Worley PACKAGE LINE RELIEF OPERATOR [address] [facility] [address] [place] [address] Referring Physician Family Medicine 12/22/23 Panel Saw Operator Relationship Specialty Start Date End Date Ani Worley CNP [address] [place] [address] [place] [address] PCP - General Family Medicine 12/22/23 Ani Worley CNP [address] [place] [address] Family Medicine 06/03/21 Ani Worley CNP [address] [place] [address] [place] [address] Referring Physician Family Medicine 12/22/23 Panel Saw Operator Relationship Specialty Start Date End Date Ani Worley CNP [address] [place] [address] [place] [address] PCP - General Family Medicine 12/22/23 Ani Worley CNP [address] [place] [address] [place] [address] Family Medicine 06/03/21 Ani Worley CNP [address] [place] [address] [place] [address] Referring Physician Family Medicine 12/22/23 Panel Saw Operator Relationship Specialty Start Date End Date Ani Worley CNP [address] [place] [address] PCP - General Family Medicine 12/22/23 Ani Worley PACKAGE LINE RELIEF OPERATOR [address] [place] [address] Family Medicine 06/03/21 Ani Worley CNP [address] [place] [address] Referring Physician Family Medicine 12/22/23 Panel Saw Operator Relationship Specialty Start Date End Date Ani Worley CNP [address] [place] [address] PCP - General Family Medicine 12/22/23 Ani Worley PACKAGE LINE RELIEF OPERATOR [address] [place] [address] Family Medicine 06/03/21 Ani Worley CNP [address] [place] [address] Referring Physician Family Medicine 12/22/23 Panel Saw Operator Relationship Specialty Start Date End Date Ani Worley CNP [address] [place] [address] PCP - General Family Medicine 12/22/23 Ani Worley CNP [address] [place] [address] Family Medicine 06/03/21 Ani Worley CNP [address] [place] [address] Referring Physician Family Medicine 12/22/23 Panel Saw Operator Relationship Specialty Start Date End Date Ani Worley CNP [address] [place] [address] PCP - General Family Medicine 12/22/23 Ani Worley CNP [address] [place] [address] Family Medicine 06/03/21 Ani Worley CNP [address] [facility] [place] [address] [place] [address] Referring Physician Family Medicine 12/22/23 Panel Saw Operator Relationship Specialty Start Date End Date Ani Worley CNP [address] [facility] [place] [address] [place] [address] PCP - General Family Medicine 12/22/23 Ani Worley CNP [address] [facility] [address] [place] [address] Family Medicine 06/03/21 Ani Worley CNP [address] [facility] [address] [place] [address] Referring Physician Family Medicine 12/22/23 Panel Saw Operator Relationship Specialty Start Date End Date Ani Worley CNP [address] [facility] [address] [place] [address] PCP - General Family Medicine 12/22/23 Ani Worley CNP [address] [facility] [address] [place] [address] Family Medicine 06/03/21 nAi Worley CNP [address] [facility] [place] [address] [place] [address] Referring Physician Family Medicine 12/22/23 Panel Saw Operator Relationship Specialty Start Date End Date Ani Worley CNP [address] [facility] [place] [address] [place] [address] PCP - General Family Medicine 12/22/23 Ani Worley CNP [address] [facility] [place] [address] [place] [address] Family Medicine 06/03/21 Ani Worley CNP [address] [facility] [place] [address] [place] [address] Referring Physician Family Medicine 12/22/23 Cecilia Gonzales DPM [address] [place] [address] Consulting Physician Podiatry 01/02/25 Panel Saw Operator Relationship Specialty Start Date End Date Ani Worley CNP [address] [address] PCP - General Family Medicine 12/22/23 Ani Worley CNP [address] [address] Family Medicine 06/03/21 Ani Worley CNP [address] [facility] [address] [place] [address] Referring Physician Family Medicine 12/22/23 Cecilia Gonzales DPM [address] [place] [address] Consulting Physician Podiatry 01/02/25 Panel Saw Operator Relationship Specialty Start Date End Date Ani Worley CNP [address] [facility] [place] [address] [place] [address] PCP - General Family Medicine 12/22/23 Ani Worley CNP [address] [facility] [address] [place] [address] Family Medicine 06/03/21 Ani Worley CNP [address] [facility] [place] [address] [place] [address] Referring Physician Family Medicine 12/22/23 Cecilia Gonzales DPM [address] [place] [address] Consulting Physician Podiatry 01/02/25 Panel Saw Operator Relationship Specialty Start Date End Date Ani Worley CNP [address] [address] PCP - General Family Medicine 12/22/23 Ani Worley CNP [address] [address] Family Medicine 06/03/21 Ani Worley CNP [address] [address] Referring Physician Family Medicine 12/22/23 Cecilia Gonzales DPM [address] [place] [address] Consulting Physician Podiatry 01/02/25 Panel Saw Operator Relationship Specialty Start Date End Date Ani Worley CNP [address] [address] PCP - General Family Medicine 12/22/23 Ani Worley CNP [address] [facility] [address] [place] [address] Family Medicine 06/03/21 Ani Worley CNP [address] [facility] [address] [place] [address] Referring Physician Family Medicine 12/22/23 Cecilia Gonzales DPM [address] [place] [address] Consulting Physician Podiatry 01/02/25 Panel Saw Operator Relationship Specialty Start Date End Date Ani Worley CNP [address] [facility] [address] [place] [address] PCP - General Family Medicine 12/22/23 Ani Worley CNP [address] [facility] [address] [place] [address] Family Medicine 06/03/21 Ani Worley CNP [address] [facility] [address] [place] [address] Referring Physician Family Medicine 12/22/23 Cecilia Gonzales DPM [address] [place] [address] Consulting Physician Podiatry 01/02/25 Panel Saw Operator Relationship Specialty Start Date End Date Ani Worley CNP [address] [facility] [address] [place] [address] PCP - General Family Medicine 12/22/23 Ani Worley CNP [address] [place] [address] Family Medicine 06/03/21 Ani Worley CNP [address] [place] [address] Referring Physician Family Medicine 12/22/23 Cecilia Gonzales DPM [address] [place] [address] Consulting Physician Podiatry 01/02/25 Panel Saw Operator Relationship Specialty Start Date End Date Ani Worley CNP [address] [facility] [address] [place] [address] PCP - General Family Medicine 12/22/23 Ani Worley CNP [address] [facility] [address] [place] [address] Family Medicine 06/03/21 Ani Worley CNP [address] [facility] [address] [place] [address] Referring Physician Family Medicine 12/22/23 Cecilia Gonzales DPM [address] [place] [phone] Consulting Physician Podiatry 01/02/25 Panel Saw Operator Relationship Specialty Start Date End Date Ani Worley CNP [address] [facility] [place] [address] [place] [address] PCP - General Family Medicine 12/22/23 Ani Worley CNP 680 [facility] [address] [place] [address] Family Medicine 06/03/21 Ani Worley CNP [address] [facility] [address] [place] [address] Referring Physician Family Medicine 12/22/23 Ceciila Gonzales DPM [address] [place] [phone] Consulting Physician Podiatry 01/02/25 Panel Saw Operator Relationship Specialty Start Date End Date Ani Worlye CNP PCP - General Family Medicine 12/22/23 Ani Worley CNP Family Medicine 06/03/21 Ani Worley CNP Referring Physician Family Medicine 12/22/23 Cecilia Gonzales DPM [address] [place] [phone] Consulting Physician Podiatry 01/02/25 Panel Saw Operator Relationship Specialty Start Date End Date Ani Worley CNP PCP - General Family Medicine 12/22/23 Ani Worley CNP Family Medicine 06/03/21 Ani Worley CNP Referring Physician Family Medicine 12/22/23 Cecilia Gonzales DPM [address] [place] [phone] Consulting Physician Podiatry 01/02/25 Panel Saw Operator Relationship Specialty Start Date End Date Ani Worley CNP [address] [place] [address] PCP - General Family Medicine 12/22/23 Ani Worley CNP [address] [place] [address] Family Medicine 06/03/21 Ani Worley CNP [address] [place] [address] Referring Physician Family Medicine 12/22/23 Cecilia Gonzales DPM [address] [place] [phone] Consulting Physician Podiatry 01/02/25 FOR RECORDS PERTAINING [...] BE BASED ON THE PRIMARY CLINICAL RECORDS. [employer] provides no warranty or guarantee of the accuracy or completeness of information in this document.
[2025-08-09 08:19] LABS: Hematocrit 32.1 % (40-54); Hemoglobin 9.7 g/dL (13.0-16.5); Mean Corp Hgb Conc 30.2 g/dL (32-36); Mean Corpuscular Volume 67.7 fL (80-94); POSITIVE COUNT YES; Platelet Count 90 K/mm3 (150-450); RBC Distribution Width CV 16.9 % (11.6-14.6); RBC Distribution Width SD 40.4 fl (35.1-43.9); Red Blood Count 4.74 M/mm3 (4.6-6.2); White Blood Count 3.9 K/mm3 (4.4-11.0)
[2025-08-09 08:26] LABS: Scan Indicated on CBC? Y/N YES- FLAGS NOTED
[2025-08-09 08:27] LABS: Vancomycin, Trough Level < 4.0 ug/mL (5.0-15.0)
[2025-08-09 08:28] LABS: Anion Gap 4 (5-15); BUN 20 mg/dL (4-19); BUN/Creat Ratio 37.9 RATIO (10-20); CRP 5.14 mg/L (0.0-3.0); Calcium,Total 8.9 mg/dL (7.6-11.0); Carbon Dioxide 40.4 mmol/L (21.0-32.0); Chloride 88 mmol/L (98-108); Glucose 117 mg/dL (70-99); Potassium 3.6 mmol/L (3.3-5.1)
== END ==
LOC: OLS.ACW100 05:00
PROVIDERS: Visit Provider Family Medicine
DX: K74.69 Other cirrhosis of liver (principal); J44.9 Chronic obstructive pulmonary disease, unspecified; B19.20 Unspecified viral hepatitis C without hepatic coma; R18.8 Other ascites; E11.9 Type 2 diabetes mellitus without complications
CPT/HCPCS: 36415; 80048; 80202; 85027; 85652; 86140